=== PATIENT | male | born 1950 | race Caucasian/White ===

== ENCOUNTER → 2023-08-23 | Outpatient (CLI) | payer MEDICARE ==
--- NOTE | 2023-08-23 11:45 | US ---
EXAMINATION TYPE: US abdomen complete DATE OF EXAM: 08/23/2023 COMPARISON: NONE CLINICAL INDICATION: Male, 72 years old with history of R10.13 epigastric pain; TECHNIQUE: Multiple sonographic images of the abdomen are obtained. FINDINGS: EXAM MEASUREMENTS: Liver Length: 14.9 cm Gallbladder Wall: 0.2 cm CBD: 0.5 cm Spleen: 10.7 cm Right Kidney: 9.5 x 5.2 x 5.2 cm Left Kidney: 12.5 x 5.7 x 5.5 cm Pancreas: obscured by overlying midline bowel gas Liver: scanned intercostally, mildly heterogeneous Gallbladder: 1.0cm echogenic focus Evidence for sonographic Ruiz's sign: no CBD: visualized portions wnl, limited by overlying bowel gas Spleen: wnl Right Kidney: measures smaller in size when compared to left kidney Left Kidney: wnl Upper IVC: wnl Abd Aorta: visualized portions wnl, limited by overlying midline bowel gas IMPRESSION: 1. Gallstones without evidence of acute cholecystitis. 2. Limited evaluation of pancreas and liver. 3. Suggestion of mild fatty infiltration liver. 4. Mild right renal atrophy
== END | disposition home or self-care (01) ==
LOC: RADUSWWP 09:12
PROVIDERS: ATTEND Family Medicine
DX: K80.20 Calculus of gallbladder without cholecystitis without obstruction (principal); N26.1 Atrophy of kidney (terminal)
CPT/HCPCS: 76700

== ENCOUNTER → 2023-10-29 | Outpatient (CLI) | payer MEDICARE ==
[2023-10-29 12:37] LABS: African American GFR (CKD) 90 (>60 ml/min/1.73 sqM); Blood Urea Nitrogen 30 mg/dL (9-20); Non-African American GFR(CKD) 77 (>60 ml/min/1.73 sqM)
--- NOTE | 2023-10-29 13:56 | CT ---
EXAMINATION TYPE: CT abdomen pelvis w con DATE OF EXAM: 10/29/2023 COMPARISON: Ultrasound 08/22/2023 HISTORY: abd cramping CT DLP: 1497 mGycm Automated exposure control for dose reduction was used. CONTRAST: CT scan of the abdomen pelvis is performed with IV Contrast, patient injected with 100 mL of Isovue 3 00. FINDINGS- LUNG BASES- basilar atelectasis or scarring with findings suggestive of pulmonary fibrosis and COPD. Coronary artery calcification. There are multiple 1 to 2 mm bilateral pulmonary micronodules too sma ll to characterize. LIVER/GB- hepatic steatosis. Multiple gallstones. PANCREAS- No gross abnormality is seen. SPLEEN- No gross abnormality is seen. ADRENALS- No gross abnormality is seen. KIDNEYS/BLADDER- no hydronephrosis nephrolithiasis or renal mass. BOWEL-there is thickening of the gastric antrum wall. There is a pathologic lymph node seen posterior to this region measuring 2.7 cm in short axis. Changes of diverticulosis. No obstruction. Appendix n ormal. LYMPH NODES- 2.7 cm short axis pathologic lymph node in the upper abdomen posterior to the stomach. Malignancy in the differential diagnosis. OSSEOUS STRUCTURES- multilevel degenerative disc disease. OTHER- mild atherosclerotic change aorta. No evidence of aneurysm. Bladder limited by incomplete dis tention. Fat-containing bilateral inguinal hernia. Prostate is enlarged measuring 5 cm. IMPRESSION- 1. There is gastric antral wall thickening with pathologic adenopathy posterior to the stomach. Recom mend EGD to exclude a mass versus severe gastritis. Adenopathy suspicious for neoplastic process. PET scan recommended. 2. Cholelithiasis. 3. COPD and findings suggestive of pulmonary fibrosis. Multiple pulmonary tiny micronodules too small to characterize.
== END | disposition home or self-care (01) ==
LOC: RADCTMAIN 12:00
PROVIDERS: ATTEND Internal Medicine Gastroenterology
DX: R63.4 Abnormal weight loss
CPT/HCPCS: 36415; 74177; 82565; 84520

== ENCOUNTER 2023-11-12 09:11 | Inpatient (IN) | payer MEDICARE ==
[~2023-11-12 09:11] MED LIST: LIDOCAINE 1% (10MG/ML) FOR IV START INTRADERMA PRN
[2023-11-12] MEDS: IV FLUID CONTINUATION 1,000 ML IV ONE (09:30)
[2023-11-12] MEDS: LACTATED RINGERS 1,000 ML IV SCH (09:38)
[2023-11-12] MEDS ORDERED: LIDOCAINE 1% INJ 10MG/ML (20 ML MDV) ONE (10:31)
[2023-11-12] MEDS ORDERED: SUCCINYLCHOLINE CHLORIDE 200 MG/10 ML VIAL IV ONE (10:31)
[2023-11-12] MEDS ORDERED: PROPOFOL 10 MG/ML 20 ML VIAL IV ONE (10:31)
--- NOTE | 2023-11-12 10:48 | P.PCN ---
Date of Procedure: 11/12/23 Procedure(s) Performed: BRIEF HISTORY: Patient is a 73-year-old, pleasant, white male scheduled for an upper endoscopy as a part evaluation of chronic epigastric pain for the last 8 months duration. He was treated with Protonix 40 mg daily for 3 months with no help.. Loss 22 pounds in the last [address] of the abdomen pelvis done 3 weeks ago \ showed thickening of the antral wall with pathological adenopathy posterior the stomach suspicious for neoplasm. He is scheduled for an upper endoscopy to evaluate further. PROCEDURE PERFORMED: Esophagogastroduodenoscopy with biopsy. PREOPERATIVE DIAGNOSIS: Chronic epigastric pain of 8 months duration. IV sedation per anesthesia. PROCEDURE: After informed consent was obtained, the patient was brought into the endoscopy unit. IV sedation was administered by Anesthesia under continuous monitoring. Initially the Olympus GIF-140 video endoscope was inserted into the mouth. Esophagus intubated without any difficulty. It was gradually advanced into the stomach there was large amount of liquid and solid food noted in the stomach suggestive of gastric outlet obstruction. The scope could not be advanced through the pylorus. In the prepyloric area as well as in the antrum there was a large superficial ulceration identified and multiple biopsies were done from this area. The body cardia and fundus could not adequately visualize because of large amount of retained food in the stomach. The scope at this time was withdrawn to the stomach, adequately insufflated with air, and upon careful examination, mucosa of the antrum, body, cardia and the fundus appeared normal. As the procedure was being performed and biopsies were being done patient threw up and subsequently became hypoxic and because of suspicion for aspiration the procedure was terminated. Anesthesia team decided to intubate the patient. Hence the procedure was terminated. Anesthesia took over and patient was intubated and is presently being transferred to the intensive care unit IMPRESSION: 1. Large superficial gastric antral ulceration involving most of the antrum status post multiple biopsies. 2. The antral ulceration was extending into the pylorus causing pyloric stenosis and gastric outlet obstruction. 3. Mild amount of solid and liquid food in the stomach suggestive of gastric outlet obstruction. RECOMMENDATIONS: The findings of this examination were discussed with the patient family. Patient is being transferred to the intensive care unit for further management of care. In the meantime we will await biopsy results. Will place an NG tube for suction. Continue with Protonix 40 mg twice daily.
[2023-11-12 11:05] LABS: Glucose,Whole Blood 134 mg/dL (70-110)
[2023-11-12] MEDS ORDERED: NALOXONE 0.4 MG/ML 1 ML VIAL IV PRN (11:32)
--- NOTE | 2023-11-12 11:51 | XR ---
EXAMINATION TYPE: XR chest 1V portable DATE OF EXAM: 11/12/2023 HISTORY: Shortness of breath. COMPARISON: None. TECHNIQUE: Single view of the chest is submitted. FINDINGS: Demonstrated are scattered senescent parenchymal change. NG tube is noted with its tip within the di stal esophagus and should be advanced 17 cm. Endotracheal tube is noted 5.7 cm from the josseline. There is no evidence for focal infiltrate. The heart is stable. Hilar and mediastinal structures are within normal limits. Degenerative changes are seen of the dorsal spine. IMPRESSION: 1. Chronic changes without evidence for acute pulmonary disease.
[2023-11-12 13:16] LABS: Basophils % (A) 0 %; Eosinophils # (A) 0.2 k/uL (0-0.7); Eosinophils % (A) 2 %; HCT 28.6 % (39.0-53.0); HGB 8.9 gm/dL (13.0-17.5); Hypochromasia Marked; Lymphocytes # (A) 2.4 k/uL (1.0-4.8); Lymphocytes % (A) 24 %; MCH 27.1 pg (25.0-35.0); MCHC 31.1 g/dL (31.0-37.0); MCV 87.3 fL (80.0-100.0); Monocytes # (A) 0.3 k/uL (0-1.0); Monocytes % (A) 3 %; Neutrophils # (A) 7.3 k/uL (1.3-7.7); Neutrophils % (A) 71 %; Platelet Count 399 k/uL (150-450); Poikilocytosis Slight; RBC 3.27 m/uL (4.30-5.90); RDW 14.7 % (11.5-15.5); WBC 10.2 k/uL (3.8-10.6)
--- NOTE | 2023-11-12 13:42 | P.CNPUL ---
History of Present Illness Consult date: 11/12/23 Requesting physician: Netta Cheng Reason for consult: other (Acute hypoxic respiratory failure secondary to aspiration during EGD) Chief complaint: Chronic epigastric pain for the last 8 months and weight loss History of present illness: This is a 73-year-old white male with history of chronic abdominal pain for the last 8 months has been treated with Protonix 40 mg daily for the last 3 months with no improvement. Patient had a 22 pound weight loss in the last [address] of the abdomen and pelvis 3 weeks ago showed thickening of the antral wall with pathological adenopathy posterior to the stomach suspicious of neoplasm. Today the patient underwent elective upper endoscopy to evaluate further, patient received IV sedation by anesthesia endoscope was inserted into the mouth, esopha ortega was intubated without any difficulty there was evidence of large amount of liquid and solid food noted in the stomach suggestive of gastric outlet obstruction. Scope could not be advanced through the pylorus, however in the prepyloric area there was a large superficial ulceration identified with multiple biopsies were done from this area. The body cardia and fundus could not adequately visualize because of large amount of retained food in the stomach. Scope was withdrawn back to the stomach and upon careful examination the mucosa of the antrum body and cardia as well as the fundus appeared normal. Procedure was being performed and biopsies were done patient threw up and subsequently became hypoxic there was clearly evidence of witnessed aspiration anesthesia intubated the patient, procedure was terminated, and the patient was transferred to the ICU, this consult was initiated. Patient is now on assist- control rate of 20 tidal volume 500 FiO2 70% PEEP of 10 ABG is pending, earlier ABG showed profound hypoxia patient is on propofol at 50 mcg/kg/min, next ABG is pending. Chest x-ray showed chronic changes without evidence of acute pulmonary disease. Review of Systems ROS unobtainable: due to endotracheal tube Past Medical History Past Medical History: GERD/Reflux History of Any Multi-Drug Resistant Organisms: None Reported Past Surgical History: Heart Catheterization Additional Past Surgical History / Comment(s): colonsocopy,spinal injection, Past Anesthesia/Blood Transfusion Reactions: No Reported Reaction Smoking Status: Never smoker - Past Family History Father Family Medical History: Cancer Medications and Allergies Home Medications Medication Instructions Recorded Confirmed Type Fluticasone Nasal [place] [Flonase 2 spray EA NOSTRIL DAILY 11/11/23 11/12/23 History Nasal [place]] Pantoprazole Sodium 40 mg PO BID 11/11/23 11/12/23 History Allergies Allergy/AdvReac Type Severity Reaction Status Date / Time No Known Allergies Allergy Verified 11/12/23 09:32 Physical Exam Vitals: Vital Signs Temp Pulse Pulse Resp BP BP Pulse Ox 11/12/23 13:10 11/12/23 13:00 76 37 H 115/72 94 L 11/12/23 12:50 67 26 H 100 11/12/23 12:40 68 23 100 11/12/23 12:36 67 23 115/71 100 11/12/23 12:03 11/12/23 12:00 11/12/23 11:06 11/12/23 11:05 11/12/23 09:26 96.6 F L 73 16 135/71 95 FiO2 11/12/23 13:10 50 11/12/23 13:00 70 11/12/23 12:50 11/12/23 12:40 11/12/23 12:36 100 11/12/23 12:03 70 11/12/23 12:00 70 11/12/23 11:06 100 11/12/23 11:05 100 11/12/23 09:26 Intake and Output 11/11/23 11/12/23 11/12/23 22:59 06:59 14:59 Intake Total 952.668 Output Total 125 Balance 827.668 Intake: IV 940 Lactated Ringers 1,000 ml 40 @ 20 mls/hr IV .Q24H NIRMAL Rx#:[id number] Intake, IV Titration 12.668 Amount propofoL 1,000 mg In 12.668 Empty Bag 1 bag @ 15 MCG/ KG/MIN 8.262 mls/hr IV . Q12H7M NIRMAL Rx#:[id number] Output: Urine 125 Other: Weight 91.8 kg General: Revealed 73-year-old white male intubated sedated, not in any distress. Skin: Skin is warm and dry and no rashes or lesions are noted. Eye: Pupils are equal, round and reactive to light, extra-ocular movements are intact; there is normal conjunctiva bilaterally. Ears, nose, mouth and throat: There are moist mucous membranes and no oral lesions. Neck: The neck is supple, there is no tenderness or JVD. Endotracheal tube is noted to be intact, nasogastric tube is also intact. Cardiovascular: There is a regular rate and rhythm. No murmur, rub or gallop is appreciated. Respiratory: Normal fine crackles at the bases no rhonchi no wheezes Gastrointestinal: Soft, non-distended, non-tender abdomen without masses or organomegaly noted. There is no rebound or guarding present. Bowel sounds are unremarkable. Musculoskeletal: No evidence of deformities. Neurological: Could not assess patient is sedated, on propofol. Psychiatric: Could not fully assess, patient is sedated, on propofol Results - Laboratory Findings CBC and BMP: 11/12/23 12:56 Abnormal lab findings: Abnormal Labs 11/12/23 11/12/23 11:04 12:56 RBC 3.27 L Hgb 8.9 L Hct 28.6 L POC Glucose (mg/dL) 134 H - Diagnostic Findings Chest x-ray: image reviewed (As noted in HPI) Assessment and Plan Assessment: Impression: Acute hypoxic respiratory failure requiring intubation mechanical ventilation secondary to aspiration. Acute aspiration during upper endoscopy most likely secondary to gastric outlet obstruction as noted in operative report. Possible stomach malignancy, pathology is pending from biopsies done earlier today. Chronic abdominal pain Unexplained weight loss most likely secondary to underlying malignancy. Recommendation: Continue ventilatory support Continue sedation with propofol Continue IV fluids Continue nasogastric tube to suction Empiric antibiotics in the form of Zosyn for presumptive aspiration pneumonia GI and DVT prophylaxis Repeat ABG on 50% FiO2 and PEEP of 10 Will address follow-up chest x-ray ABG in a.m. and address possible weaning and extubation. Will continue to follow Time with Patient: Greater than 30
[2023-11-12 13:43] LABS: African American GFR (CKD) >90 (>60 ml/min/1.73 sqM); Anion Gap 6 mmol/L; Blood Urea Nitrogen 18 mg/dL (9-20); Calcium 8.9 mg/dL (8.4-10.2); Carbon Dioxide 26 mmol/L (22-30); Chloride 106 mmol/L (98-107); Glucose 127 mg/dL (74-99); Magnesium 1.9 mg/dL (1.6-2.3); Non-African American GFR(CKD) 87 (>60 ml/min/1.73 sqM); Phosphorus 4.1 mg/dL (2.5-4.5); Potassium 5.1 mmol/L (3.5-5.1); Sodium 138 mmol/L (137-145)
[2023-11-12 13:50] LABS: ABG Base Excess -1.6 mmol/L; ABG HCO3 24 mmol/L (21-25); ABG Oxygen Saturation 94.8 % (94-97); ABG PCO2 43 mmHg (35-45); ABG PH 7.36 (7.35-7.45); ABG PO2 75 mmHg (83-108); ABG TCO2 25 mmol/L (19-24)
[2023-11-12 13:52] LABS: Allen Test Performed? no
[2023-11-12] MEDS: HYDROmorphone 0.5 MG/0.5 ML SYRINGE IVP PRN (14:07)
[2023-11-12] MEDS: PIPERACILLIN-TAZOBACTAM 3.375 GM in SODIUM CHLORIDE 0.9% 100 ML IVPB SCH (15:28)
[2023-11-12] MEDS: IPRATROPIUM-ALBUTEROL 3 ML NEB INHALATION SCH (15:28)
--- NOTE | 2023-11-12 15:40 | P.CONS ---
History of Present Illness - Reason for Consult Consult date: 11/12/23 Gastroparesis Requesting physician: Dorita Saldivar - Chief Complaint Abdominal pain and weight loss - History of Present Illness 73-year-old male who is scheduled for outpatient upper endoscopy for complaints of chronic epigastric pain over the last 8 months duration and weight loss of 22 pounds over the last 4 months duration. Today he underwent upper endoscopy today and was found to have large amount of retained food in his stomach with evidence of large superficial gastric antral ulcer involving most of the antrum extending into the pylorus causing pyloric stenosis. Scope could not be advanced any further through the pylorus suggestive of gastric outlet obstr uction. Multiple biopsies were done from the gastric antral ulceration. During this process patient had aspirated and had a drop in his oxygen saturation and needed to be intubated per anesthesia. He was s admitted to the hospital and transferred to the to the ICU currently remains intubated with NG tube placed with about 200 cc of gastric output. Review of Systems ROS unobtainable: due to endotracheal tube Past Medical History Past Medical History: GERD/Reflux History of Any Multi-Drug Resistant Organisms: None Reported Past Surgical History: Heart Catheterization Additional Past Surgical History / Comment(s): colonsocopy,spinal injection, Past Anesthesia/Blood Transfusion Reactions: No Reported Reaction Past Psychological History: No Psychological Hx Reported Smoking Status: Never smoker Past Alcohol Use History: None Reported Past Drug Use History: None Reported - Past Family History Father Family Medical History: Cancer Medications and Allergies Home Medications Medication Instructions Recorded Confirmed Type Fluticasone Nasal [place] [Flonase 2 spray EA NOSTRIL DAILY 11/11/23 11/12/23 His tory Nasal [place]] Pantoprazole Sodium 40 mg PO BID 11/11/23 11/12/23 History Allergies Allergy/AdvReac Type Severity Reaction Status Date / Time No Known Allergies Allergy Verified 11/12/23 09:32 Physical Exam Vitals: Vital Signs Temp Pulse Pulse Resp BP BP Pulse Ox 11/12/23 14:30 84 20 100 11/12/23 14:15 79 20 78/47 100 11/12/23 14:00 81 20 86/60 99 11/12/23 13:45 85 22 98/58 96 11/12/23 13:30 86 34 H 119/57 93 L 11/12/23 13:15 80 37 H 129/109 90 L 11/12/23 13:10 11/12/23 13:00 76 37 H 115/72 94 L 11/12/23 12:50 67 26 H 100 11/12/23 12:40 68 23 100 11/12/23 12:36 67 23 115/71 100 11/12/23 12:03 11/12/23 12:00 11/12/23 11:06 11/12/23 11:05 11/12/23 09:26 96.6 F L 73 16 135/71 95 FiO2 11/12/23 14:30 11/12/23 14:15 11/12/23 14:00 11/12/23 13:45 11/12/23 13:30 11/12/23 13:15 11/12/23 13:10 50 11/12/23 13:00 70 11/12/23 12:50 11/12/23 12:40 11/12/23 12:36 100 11/12/23 12:03 70 11/12/23 12:00 70 11/12/23 11:06 100 11/12/23 11:05 11/12/23 09:26 Intake and Output 11/11/23 11/12/23 11/12/23 22:59 06:59 14:59 Intake Total 1025.649 Output Total 125 Balance 900.649 Intake: IV 940 Lactated Ringers 1,000 ml 40 @ 20 mls/hr IV .Q24H NIRMAL Rx#:[id number] Intake, IV Titration 85.649 Amount propofoL 1,000 mg In 85.649 Empty Bag 1 bag @ 15 MCG/ KG/MIN 8.262 mls/hr IV . Q12H7M NIRMAL Rx#:[id number] Output: Urine 125 Other: Voiding Method Indwelling Catheter Weight 91.8 kg General appearance: The patient is sedated and intubated. HET: Head is normocephalic and atraumatic. NG tube in place with suction to the wall. Neck: Supple without lymphadenopathy. Trachea midline. Heart: Regular. Lungs: Equal expansion, normal respiratory effort. Abdomen: Soft, nondistended. Skin: No rashes. No jaundice. Extremities: Normal skin color and turgor. No pedal edema. Neurological: Sedated and intubated. Results CBC & Chem 7: 11/12/23 12:56 11/12/23 12:56 Labs: Abnormal Lab Results - Last 24 Hours (Table) 11/12/23 11/12/23 11/12/23 Range/Units 11:04 12:56 12:56 RBC 3.27 L (4.30-5.90) m/uL Hgb 8.9 L (13.0-17.5) gm/dL Hct 28.6 L (39.0-53.0) % ABG pO2 (83-108) mmHg ABG Total CO2 (19-24) mmol/L Hemoglobin (13.0-17.5) gm/dL Glucose 127 H (74-99) mg/dL POC Glucose (mg/dL) 134 H (70-110) mg/dL 11/12/23 Range/Units 13:48 RBC (4.30-5.90) m/uL Hgb (13.0-17.5) gm/dL Hct (39.0-53.0) % ABG pO2 75 L (83-108) mmHg ABG Total CO2 25 H (19-24) mmol/L Hemoglobin 8.5 L (13.0-17.5) gm/dL Glucose (74-99) mg/dL POC Glucose (mg/dL) (70-110) mg/dL Assessment and Plan (1) Gastric outlet obstruction Narrative/Plan: 73-year-old scheduled for outpatient procedure found to have significant amount of retained solid and liquid food in the stomach and also noted of large antral ulcer. This is a patient that was being worked up for chronic epigastric pain and unintentional weight loss. During procedure patient he had aspirated subsequently needing intubation and was admitted to the ICU for further evaluation. NG tube is placed with 200 mL of gastric output including food and liquid. Will continue to follow and await biopsy report report Current Visit: Yes Status: Acute Code(s): K31.1 - ADULT HYPERTROPHIC PYLORIC STENOSIS SNOMED Code(s): 570823028 (2) Aspiration into airway Current Visit: Yes Status: Acute Code(s): T17.908A - UNSP FB IN RESP TRACT, PART UNSP CAUSING OTH INJURY, INIT SNOMED Code(s): 378603197 (3) Gastric ulcer Current Visit: Yes Status: Acute Code(s): K25.9 - GASTRIC ULCER, UNSP ACUTE OR CHRONIC, W/O HEMOR OR PERF SNOMED Code(s): 810380783 (4) Epigastric pain Current Visit: Yes Status: Acute Code(s): R10.13 - EPIGASTRIC PAIN SNOMED Code(s): 31173883 (5) Unintentional weight loss Current Visit: Yes Status: Acute Code(s): R63.4 - ABNORMAL WEIGHT LOSS SNOMED Code(s): 546357375 Plan: 1. Continue symptomatic and supportive care 2. Continue with NG tube to suction 3. N.p.o. 4. Await gastric ulcer biopsy results 5. Rest of medical per ICU management and medical team Thank you for this consultation, we will continue to follow. Dr. Sahara Cheng I agree with the dictator's note, documented as a scribe by Leslee Estes.
[2023-11-12] MEDS: NOREPINEPHRINE 4 MG in SODIUM CHLORIDE 0.9% 250 ML IV SCH (18:59)
[2023-11-12] MEDS: CHLORHEXIDINE GLUCONATE 15 ML CUP MUCOUS MEM SCH (20:10)
[2023-11-12] MEDS: PANTOPRAZOLE 40 MG/10 ML VIAL IVP SCH (20:10)
[2023-11-12 23:01] LABS: Glucose,Whole Blood 172 mg/dL (70-110)
[2023-11-13 05:18] LABS: ABG Base Excess -4.4 mmol/L; ABG HCO3 22 mmol/L (21-25); ABG Oxygen Saturation 99.7 % (94-97); ABG PCO2 47 mmHg (35-45); ABG PH 7.28 (7.35-7.45); ABG PO2 143 mmHg (83-108); ABG TCO2 24 mmol/L (19-24); Allen Test Performed? Yes
[2023-11-13 06:33] LABS: Basophils % (A) 0 %; Eosinophils % (A) 0 %; HCT 24.5 % (39.0-53.0); HGB 7.6 gm/dL (13.0-17.5); Hypochromasia Marked; Lymphocytes # (A) 1.2 k/uL (1.0-4.8); Lymphocytes % (A) 9 %; MCH 27.5 pg (25.0-35.0); MCHC 31.2 g/dL (31.0-37.0); Mean Platelet Volume 7.6; Monocytes # (A) 0.6 k/uL (0-1.0); Monocytes % (A) 4 %; Neutrophils # (A) 11.9 k/uL (1.3-7.7); Neutrophils % (A) 85 %; Platelet Count 333 k/uL (150-450); Poikilocytosis Slight; RBC 2.78 m/uL (4.30-5.90); RDW 14.9 % (11.5-15.5)
[2023-11-13 06:56] LABS: African American GFR (CKD) 50 (>60 ml/min/1.73 sqM); Anion Gap 10 mmol/L; Blood Urea Nitrogen 26 mg/dL (9-20); Calcium 8.2 mg/dL (8.4-10.2); Carbon Dioxide 23 mmol/L (22-30); Chloride 103 mmol/L (98-107); Glucose 159 mg/dL (74-99); Non-African American GFR(CKD) 44 (>60 ml/min/1.73 sqM); Potassium 4.8 mmol/L (3.5-5.1); Sodium 136 mmol/L (137-145)
--- NOTE | 2023-11-13 08:02 | XR ---
EXAMINATION TYPE: XR chest 1V portable DATE OF EXAM: 11/13/2023 HISTORY: Shortness of breath. COMPARISON: 11/12/2023 TECHNIQUE: Single view of the chest is submitted. FINDINGS: Endotracheal tube is unchanged in position as is NG tube. Perihilar increased density may reflect developing infiltrate. The heart is stable. Hilar and mediastinal structures are within normal limits. Degenerative changes are seen of the dorsal spine. IMPRESSION: 1. Perihilar increased density may reflect developing infiltrate.
[2023-11-13 12:00] LABS: Glucose,Whole Blood 137 mg/dL (70-110)
--- NOTE | 2023-11-13 12:10 | P.PN ---
Subjective Progress Note Date: 11/13/23 Principal diagnosis: Aspiration 73-year-old male who is scheduled for outpatient upper endoscopy for complaints of chronic epigastric pain over the last 8 months duration and weight loss of 22 pounds over the last 4 months duration. Today he underwent upper endoscopy today and was found to have large amount of retained food in his stomach with evidence of large superficial gastric antral ulcer involving most of the antrum extending into the pylorus causing pyloric stenosis. Scope could not be advanced any further through the pylorus suggestive of gastric outlet obstructi on. Multiple biopsies were done from the gastric antral ulceration. During this process patient had aspirated and had a drop in his oxygen saturation and needed to be intubated per anesthesia. He was s admitted to the hospital and transferred to the to the ICU currently remains intubated with NG tube placed with about 200 cc of gastric output. 11/13/2023 Patient remains in the ICU sedated and intubated on mechanical ventilation. Family at the bedside. Had approximately 6-700 output of the NG tube since yesterday until this morning. Currently no output at this time. Chest x-ray reports perihilar increased density may reflect developing infiltrate. Patient has been afebrile. Objective - Vital Signs Vital signs: Vital Signs Temp 98.0 F 11/13/23 05:00 Pulse 106 H 11/13/23 08:06 Resp 15 11/13/23 07:00 BP 118/54 11/13/23 07:00 Pulse Ox 98 11/13/23 07:00 FiO2 50 11/13/23 07:49 Intake & Output 11/12/23 11/13/23 11/13/23 18:59 06:59 18:59 Intake Total 1206.554 586.118 20 Output Total 185 1035 75 Balance 1021.554 -448.882 -55 Weight 91.8 kg 95.4 kg Intake: IV 1040 240 20 Lactated Ringers 1,000 ml 140 240 20 @ 20 mls/hr IV .Q24H [facility] Rx#:[id number] Intake, IV Titration 166.554 346.118 Amount Norepinephrine 4 mg In 39.232 Sodium Chloride 0.9% 250 ml @ 0.03 MCG/KG/MIN 10. 493 mls/hr IV .Q24H [facility] Rx#:[id number] Piperacillin-Tazobactam 3 100 .375 gm In Sodium Chloride 0.9% 100 ml @ 25 mls/hr IVPB Q8HR [facility] Rx# :[id number] propofoL 1,000 mg In 166.554 206.886 Empty Bag 1 bag @ 15 MCG/ KG/MIN 8.262 mls/hr IV . Q12H7M [facility] Rx#:[id number] Output: Gastric Drainage 600 Urine 185 435 75 Other: Voiding Method Indwelling Catheter Indwelling Catheter # Bowel Movements 0 - Exam General appearance: The patient is sedated, intubated. HET: Head is normocephalic and atraumatic. NG tube in place. Neck: Supple without lymphadenopathy. Abdomen: Soft, nondistended. Extremities: Normal skin color and turgor. No pedal edema Skin: No rashes, no jaundice Neurological: Sedated and intubated. - Labs CBC & Chem 7: 11/13/23 05:52 11/13/23 05:52 Labs: Abnormal Lab Results - Last 24 Hours (Table) 11/12/23 11/12/23 11/12/23 Range/Units 11:04 12:56 12:56 WBC (3.8-10.6) k/uL RBC 3.27 L (4.30-5.90) m/uL Hgb 8.9 L (13.0-17.5) gm/dL Hct 28.6 L (39.0-53.0) % Neutrophils # (1.3-7.7) k/uL ABG pH (7.35-7.45) ABG pCO2 (35-45) mmHg ABG pO2 (83-108) mmHg ABG Total CO2 (19-24) mmol/L ABG O2 Saturation (94-97) % Hemoglobin (13.0-17.5) gm/dL Sodium (137-145) mmol/L BUN (9-20) mg/dL Creatinine (0.66-1.25) mg/dL Glucose 127 H (74-99) mg/dL POC Glucose (mg/dL) 134 H (70-110) mg/dL Calcium (8.4-10.2) mg/dL 11/12/23 11/12/23 11/13/23 Range/Units 13:48 22:59 05:15 WBC (3.8-10.6) k/uL RBC (4.30-5.90) m/uL Hgb (13.0-17.5) gm/dL Hct (39.0-53.0) % Neutrophils # (1.3-7.7) k/uL ABG pH 7.28 L (7.35-7.45) ABG pCO2 47 H (35-45) mmHg ABG pO2 75 L 143 H (83-108) mmHg ABG Total CO2 25 H (19-24) mmol/L ABG O2 Saturation 99.7 H (94-97) % Hemoglobin 8.5 L 7.5 L (13.0-17.5) gm/dL Sodium (137-145) mmol/L BUN (9-20) mg/dL Creatinine (0.66-1.25) mg/dL Glucose (74-99) mg/dL POC Glucose (mg/dL) 172 H (70-110) mg/dL Calcium (8.4-10.2) mg/dL 11/13/23 11/13/23 Range/Units 05:52 05:52 WBC 14.0 H (3.8-10.6) k/uL RBC 2.78 L (4.30-5.90) m/uL Hgb 7.6 L (13.0-17.5) gm/dL Hct 24.5 L (39.0-53.0) % Neutrophils # 11.9 H (1.3-7.7) k/uL ABG pH (7.35-7.45) ABG pCO2 (35-45) mmHg ABG pO2 (83-108) mmHg ABG Total CO2 (19-24) mmol/L ABG O2 Saturation (94-97) % Hemoglobin (13.0-17.5) gm/dL Sodium 136 L (137-145) mmol/L BUN 26 H (9-20) mg/dL Creatinine 1.57 H (0.66-1.25) mg/dL Glucose 159 H (74-99) mg/dL POC Glucose (mg/dL) (70-110) mg/dL Calcium 8.2 L (8.4-10.2) mg/dL Assessment and Plan (1) Gastric outlet obstruction Narrative/Plan: 73-year-old scheduled for outpatient procedure found to have significant amount of retained solid and liquid food in the stomach and also noted of large antral ulcer. This is a patient that was being worked up for chronic epigastric pain and unintentional weight loss. During procedure patient he had aspirated subsequently needing intubation and was admitted to the ICU for further evaluation. NG tube is placed with 200 mL of gastric output including food and liquid. Will continue to follow and await biopsy report report Current Visit: Yes Status: Acute Code(s): K31.1 - ADULT HYPERTROPHIC PYLORIC STENOSIS SNOMED Code(s): 668536075 (2) Aspiration into airway Current Visit: Yes Status: Acute Code(s): T17.908A - UNSP FB IN RESP TRACT, PART UNSP CAUSING OTH INJURY, INIT SNOMED Code(s): 517907206 (3) Gastric ulcer Current Visit: Yes Status: Acute Code(s): K25.9 - GASTRIC ULCER, UNSP ACUTE OR CHRONIC, W/O HEMOR OR PERF SNOMED Code(s): 319216462 (4) Epigastric pain Current Visit: Yes Status: Acute Code(s): R10.13 - EPIGASTRIC PAIN SNOMED Code(s): 19389311 (5) Unintentional weight loss Current Visit: Yes Status: Acute Code(s): R63.4 - ABNORMAL WEIGHT LOSS SNOMED Code(s): 397294941 Plan: 1. Continue symptomatic and supportive care 2. May clamp NG tube and try clear liquid 3. Can trial clear liquid diet through NG tube, check residuals 4. Await gastric ulcer biopsy results 5. Protonix 40 mg daily for GI prophylaxis 6. Rest of medical per ICU management and medical team Thank you for this consultation, we will continue to follow. Dr. Sahara Cheng I agree with the dictator's note, documented as a scribe by Leslee Estes.
--- NOTE | 2023-11-13 13:51 | P.PN ---
Subjective Progress Note Date: 11/13/23 Principal diagnosis: Acute hypoxic respiratory failure requiring intubation mechanical ventilation secondary to aspiration. This is a 73-year-old white male with history of chronic abdominal pain for the last 8 months has been treated with Protonix 40 mg daily for the last 3 months with no improvement. Patient had a 22 pound weight loss in the last [address] of the abdomen and pelvis 3 weeks ago showed thickening of the antral wall with pathological adenopathy posterior to the stomach suspicious of neoplasm. Today the patient underwent elective upper endoscopy to evaluate further, patient received IV sedation by anesthesia endoscope was inserted into the mouth, esop hagus was intubated without any difficulty there was evidence of large amount of liquid and solid food noted in the stomach suggestive of gastric outlet obstruction. Scope could not be advanced through the pylorus, however in the prepyloric area there was a large superficial ulceration identified with multiple biopsies were done from this area. The body cardia and fundus could not adequately visualize because of large amount of retained food in the stomach. Scope was withdrawn back to the stomach and upon careful examination the mucosa of the antrum body and cardia as well as the fundus appeared normal. Procedure was being performed and biopsies were done patient threw up and subsequently became hypoxic there was clearly evidence of witnessed aspiration anesthesia intubated the patient, procedure was terminated, and the patient was transferred to the ICU, this consult was initiated. Patient is now on assist- control rate of 20 tidal volume 500 FiO2 70% PEEP of 10 ABG is pending, earlier ABG showed profound hypoxia patient is on propofol at 50 mcg/kg/min, next ABG is pending. Chest x-ray showed chronic changes without evidence of acute pulmonary disease. Patient was seen and examined today on 11/13/2023, remains in the ICU, intubated mechanically ventilated, on assist-control rate of 20 tidal volume 500 FiO2 50% and PEEP of 10 ABG showed a pO2 of 143 pCO2 47 pH of 7.28 hence PEEP was cut down to 6, and increased rate to 22. Patient is still requiring IV fluid at 100 cc/h/LR. Requiring norepinephrine at 0.08 mcg/kg/min he is also on propofol at 50 mg/kg/min antibiotics arce patient is receiving Zosyn. Chest x-ray is showing worsening infiltrates specially in the left lung. This could be related to aspiration pneumonia. Patient had witnessed aspiration during end oscopy/upper endoscopy.WBC count is 14 hemoglobin 7.6 basic metabolic profile is normal BUN is 26 creatinine 1.57 obviously the patient sustained some acute kidney injury baseline creatinine 0.86 patient had received fluids over the last 24 hours, remains on fluids at 100 cc/h Objective - Vital Signs Vital signs: Vital Signs Temp 98.0 F 11/13/23 08:00 Pulse 108 H 11/13/23 12:00 Resp 18 11/13/23 12:00 BP 119/65 11/13/23 12:00 Pulse Ox 100 11/13/23 12:00 FiO2 50 11/13/23 12:00 Intake & Output 11/12/23 11/13/23 11/13/23 18:59 06:59 18:59 Intake Total 1206.554 586.118 876.650 Output Total 185 1035 835 Balance 1021.554 -448.882 41.650 Weight 91.8 kg 95.4 kg Intake: IV 1040 240 360 Lactated Ringers 1,000 ml 140 240 360 @ 100 mls/hr IV .Q10H [facility] Rx#:[id number] Intake, IV Titration 166.554 346.118 516.650 Amount Norepinephrine 4 mg In 39.232 243.332 Sodium Chloride 0.9% 250 ml @ 0.03 MCG/KG/MIN 10. 493 mls/hr IV .Q24H [facility] Rx#:[id number] Piperacillin-Tazobactam 3 100 100 .375 gm In Sodium Chloride 0.9% 100 ml @ 25 mls/hr IVPB Q8HR [facility] Rx# :[id number] propofoL 1,000 mg In 166.554 206.886 173.318 Empty Bag 1 bag @ 15 MCG/ KG/MIN 8.262 mls/hr IV . Q12H7M [facility] Rx#:[id number] Output: Gastric Drainage 600 Urine 185 435 835 Other: Voiding Method Indwelling Catheter Indwelling Catheter Indwelling Catheter # Bowel Movements 0 - Exam General: Revealed 73-year-old white male intubated sedated, calm Skin: Skin is warm and dry and no rashes or lesions are noted. Eye: Pupils are equal, round and reactive to light, extra-ocular movements are intact; there is normal conjunctiva bilaterally. Ears, nose, mouth and throat: There are moist mucous membranes and no oral lesi ons. Neck: The neck is supple, there is no tenderness or JVD. Endotracheal tube is noted to be intact, nasogastric tube is also intact. Cardiovascular: There is a regular rate and rhythm. No murmur, rub or gallop is appreciated. Respiratory: Minimal crackles at the bases Gastrointestinal: Soft, non-distended, non-tender abdomen without masses or organomegaly noted. There is no rebound or guarding present. Bowel sounds are unremarkable. Musculoskeletal: No evidence of deformities. Neurological: Could not assess patient is sedated, on propofol. Psychiatric: Could not fully assess, patient is sedated, on propofol - Labs CBC & Chem 7: 11/13/23 05:52 11/13/23 05:52 Labs: Abnormal Lab Results - Last 24 Hours (Table) 11/12/23 11/12/23 11/13/23 Range/Units 13:48 22:59 05:15 WBC (3.8-10.6) k/uL RBC (4.30-5.90) m/uL Hgb (13.0-17.5) gm/dL Hct (39.0-53.0) % Neutrophils # (1.3-7.7) k/uL ABG pH 7.28 L (7.35-7.45) ABG pCO2 47 H (35-45) mmHg ABG pO2 75 L 143 H (83-108) mmHg ABG Total CO2 25 H (19-24) mmol/L ABG O2 Saturation 99.7 H (94-97) % Hemoglobin 8.5 L 7.5 L (13.0-17.5) gm/dL Sodium (137-145) mmol/L BUN (9-20) mg/dL Creatinine (0.66-1.25) mg/dL Glucose (74-99) mg/dL POC Glucose (mg/dL) 172 H (70-110) mg/dL Calcium (8.4-10.2) mg/dL 11/13/23 11/13/23 11/13/23 Range/Units 05:52 05:52 11:58 WBC 14.0 H (3.8-10.6) k/uL RBC 2.78 L (4.30-5.90) m/uL Hgb 7.6 L (13.0-17.5) gm/dL Hct 24.5 L (39.0-53.0) % Neutrophils # 11.9 H (1.3-7.7) k/uL ABG pH (7.35-7.45) ABG pCO2 (35-45) mmHg ABG pO2 (83-108) mmHg ABG Total CO2 (19-24) mmol/L ABG O2 Saturation (94-97) % Hemoglobin (13.0-17.5) gm/dL Sodium 136 L (137-145) mmol/L BUN 26 H (9-20) mg/dL Creatinine 1.57 H (0.66-1.25) mg/dL Glucose 159 H (74-99) mg/dL POC Glucose (mg/dL) 137 H (70-110) mg/dL Calcium 8.2 L (8.4-10.2) mg/dL Assessment and Plan Assessment: Impression: Acute hypoxic respiratory failure requiring intubation mechanical ventilation secondary to aspiration. Acute aspiration pneumonia Acute aspiration during upper endoscopy most likely secondary to gastric outlet obstruction as noted in operative report. Possible stomach malignancy, pathology is pending from biopsies done earlier today. Chronic abdominal pain Unexplained weight loss most likely secondary to underlying malignancy. Recommendation: Updated family on his condition at bedside Patient will be given a trial off sedation and assessment of mental status, and can even consider 8 trial of weaning if tolerated. Continue ventilatory support Sedation interruption today and decide on weaning trials if possible or weaning parameters Continue IV fluids Continue nasogastric tube to suction Continue antibiotics in the form of Zosyn for aspiration pneumonia GI and DVT prophylaxis ABG was noted and ventilator settings were appropriately addressed. Patient remains critically ill Critical care time is over 30 minutes. Again family was updated on his status at this point. Will continue to follow Time with Patient: Greater than 30
[2023-11-13 17:32] LABS: Glucose,Whole Blood 128 mg/dL (70-110)
--- NOTE | 2023-11-13 21:04 | P.HPIM ---
History of Present Illness H&P Date: 11/13/23 Chief Complaint: Aspirated This is a 73-year-old patient, follows with Dr. Patricia Deal. Patient was seen this morning in the ICU. Patient's and daughter at the bedside. History obtained predominantly by the . Patient been having trouble with his stomach symptoms for close to 8 months. Patient underwent EGD by Dr. Sahara Cheng yesterday. Patient was found to have ulcerated around the antrum and obstruction to the pylorus. A lot of retained food was found. Patient aspirated. Had to be intubated and brought to the ICU. On a Levophed drip. FiO2 50 and a PEEP of 6. Patient had been losing weight lost about 25 pounds. Previously has a history of mitral valve prolapse. Review of systems patient intubated Past medical history to include: GERD Social history: . No smoking. Physical examination: VITAL SIGNS: 98, 103, 20, 122 x 61, 99% on the ventilator GENERAL: Average built, sitting up, comfortable. EYES: Pupils equal. Conjunctiva edouard l. HEENT: External appearance of nose and ears normal, oral cavity grossly normal. Endotracheal tube. NECK: JVD unable to assess; masses not palpable. HEART: First and second heart sounds are normal; no edema. LUNGS: Respiratory rate normal; decreased breath sounds. ABDOMEN: Soft, nontender, liver spleen not palpable, no masses palpable. PSYCH: [Patient intubated l. MUSCULOSKELETAL:No Clubbing/cyanosis;muscles-grossly intact NEUROLOGICAL: Cranial nerves grossly intact; no facial asymmetry, power and sensation grossly intact. LYMPHATICS: No lymph nodes palpable in the axilla and neck INVESTIGATIONS, reviewed in the clinical context: November 12: White count 14 hemoglobin 7.6 platelets 333 sodium 136 BUN 26 creatinine 1.57 November 11: Creatinine 0.86 EGD: Large amount of retained solid liquid food noted in the stomach. Large superficial gastric antral ulceration involving most of the antrum extending into the pylorus causing pyloric stenosis. Biopsies were obtained. Chest x-ray film personally reviewed by me-scattered infiltrates Assessment plan: -Aspiration pneumonitis bilateral from retained gastric contents mostly food and liquids IV Zosyn -Acute kidney injury. Possible ATN from hypotensive shock Strict I's and O's. Follow renal function. Consult nephrology. IV fluids. I's and O's. -Acute hypoxic respiratory failure from aspiration pneumonia, currently ventilator assisted FiO2 50 and a PEEP of 6. -Normocytic anemia likely of chronic disease Check iron studies B12 folate -GERD PPI -Large superficial gastric antral ulceration involving the gastric antrum extending into the pylorus with gastric outlet obstruction. Concern for underlying malignancy. Biopsies are done. -Full code Patient being followed by GI, education sales consultant. Care was discussed patient's and daughter at the bedside. Past Medical History Past Medical History: GERD/Reflux History of Any Multi-Drug Resistant Organisms: None Reported Past Surgical History: Heart Catheterization Additional Past Surgical History / Comment(s): colonsocopy,spinal injection, Past Anesthesia/Blood Transfusion Reactions: No Reported Reaction Past Psychological History: No Psychological Hx Reported Smoking Status: Never smoker Past Alcohol Use History: None Reported Past Drug Use History: None Reported - Past Family History Father Family Medical History: Cancer Medications and Allergies Home Medications Medication Instructions Recorded Confirmed Type Fluticasone Nasal [place] [Flonase 2 spray EA NOSTRIL DAILY 11/11/23 11/12/23 History Nasal [place]] Pantoprazole Sodium 40 mg PO BID 11/11/23 11/12/23 History Allergies Allergy/AdvReac Type Severity Reaction Status Date / Time No Known Allergies Allergy Verified 11/12/23 09:32 Physical Exam Vitals: Vital Signs Temp Pulse Resp BP Pulse Ox FiO2 11/13/23 11:31 50 11/13/23 11:00 101 H 20 108/63 99 11/13/23 10:30 103 H 20 122/61 99 11/13/23 10:00 108 H 18 120/62 100 11/13/23 09:33 50 11/13/23 09:30 112 H 19 123/62 100 11/13/23 09:00 113 H 21 128/61 100 11/13/23 08:30 115 H 17 126/62 100 11/13/23 08:06 106 H 11/13/23 08:00 98.0 F 106 H 20 121/57 98 50 11/13/23 07:56 104 H 11/13/23 07:49 50 11/13/23 07:30 105 H 15 122/57 98 11/13/23 07:00 104 H 15 118/54 98 11/13/23 06:30 107 H 16 106/56 98 11/13/23 06:00 112 H 16 107/57 98 11/13/23 05:30 120 H 16 114/56 98 11/13/23 05:00 98.0 F 115 H 18 93/53 99 11/13/23 04:30 116 H 15 137/61 100 11/13/23 04:15 111 H 11/13/23 04:13 50 11/13/23 04:00 108 H 20 129/67 100 50 11/13/23 03:30 108 H 17 108/57 100 11/13/23 03:00 108 H 17 106/54 99 11/13/23 02:30 109 H 15 101/51 100 11/13/23 02:00 110 H 16 111/55 100 50 11/13/23 01:30 109 H 16 110/59 100 11/13/23 01:25 108 H 11/13/23 01:10 112 H 11/13/23 01:08 50 11/13/23 01:00 103 H 14 104/52 98 11/13/23 00:30 103 H 15 104/53 98 11/13/23 00:00 98.4 F 103 H 15 104/53 98 50 11/12/23 23:30 104 H 16 102/53 98 11/12/23 23:00 101 H 16 104/56 98 11/12/23 22:30 101 H 15 108/56 98 11/12/23 22:06 106 H 14 110/55 98 11/12/23 22:00 105 H 16 107/54 98 11/12/23 21:30 110 H 14 94/50 97 11/12/23 21:09 89 11/12/23 21:00 113 H 15 99/57 98 11/12/23 20:30 113 H 15 83/52 98 11/12/23 20:00 98.0 F 90 19 99/59 98 50 11/12/23 19:59 50 11/12/23 19:30 84 20 105/63 98 11/12/23 19:00 81 20 88/53 99 11/12/23 18:30 79 20 83/51 99 11/12/23 18:00 82 20 86/54 99 11/12/23 17:30 87 20 82/50 100 11/12/23 17:00 91 25 H 99/63 100 11/12/23 16:30 88 21 104/57 100 11/12/23 16:00 97.5 F L 100 20 93/57 100 11/12/23 15:46 50 11/12/23 15:45 96 21 83/51 100 11/12/23 15:44 82 11/12/23 15:42 70 11/12/23 15:32 50 11/12/23 15:30 82 22 80/43 100 11/12/23 15:15 80 22 76/45 100 11/12/23 15:00 81 22 79/46 100 11/12/23 14:45 80 21 76/46 100 11/12/23 14:30 84 20 100 11/12/23 14:15 79 20 78/47 100 11/12/23 14:00 81 20 86/60 99 11/12/23 13:45 85 22 98/58 96 11/12/23 13:30 86 34 H 119/57 93 L 11/12/23 13:15 80 37 H 129/109 90 L 11/12/23 13:10 50 11/12/23 13:00 76 37 H 115/72 94 L 70 11/12/23 12:50 67 26 H 100 11/12/23 12:40 68 23 100 11/12/23 12:36 67 23 115/71 100 100 11/12/23 12:03 70 11/12/23 12:00 70 Intake and Output 11/12/23 11/13/23 11/13/23 22:59 06:59 14:59 Intake Total 313.583 433.44 599.616 Output Total 150 945 510 Balance 163.583 -511.56 89.616 Intake: IV 160 160 160 Lactated Ringers 1,000 ml 160 160 160 @ 100 mls/hr IV .Q10H [facility] Rx#:[id number] Intake, IV Titration 153.583 273.44 439.616 Amount Norepinephrine 4 mg In 39.232 214.768 Sodium Chloride 0.9% 250 ml @ 0.03 MCG/KG/MIN 10. 493 mls/hr IV .Q24H [facility] Rx#:[id number] Piperacillin-Tazobactam 3 100 100 .375 gm In Sodium Chloride 0.9% 100 ml @ 25 mls/hr IVPB Q8HR [facility] Rx# :[id number] propofoL 1,000 mg In 114.351 173.44 124.848 Empty Bag 1 bag @ 15 MCG/ KG/MIN 8.262 mls/hr IV . Q12H7M [facility] Rx#:[id number] Output: Gastric Drainage 600 Urine 150 345 510 Other: Voiding Method Indwelling Catheter Indwelling Catheter # Bowel Movements 0 Weight 95.4 kg Results CBC & Chem 7: 11/13/23 05:52 11/13/23 05:52 Labs: Abnormal Lab Results - Last 24 Hours (Table) 11/12/23 11/12/23 11/12/23 Range/Units 12:56 12:56 13:48 WBC (3.8-10.6) k/uL RBC 3.27 L (4.30-5.90) m/uL Hgb 8.9 L (13.0-17.5) gm/dL Hct 28.6 L (39.0-53.0) % Neutrophils # (1.3-7.7) k/uL ABG pH (7.35-7.45) ABG pCO2 (35-45) mmHg ABG pO2 75 L (83-108) mmHg ABG Total CO2 25 H (19-24) mmol/L ABG O2 Saturation (94-97) % Hemoglobin 8.5 L (13.0-17.5) gm/dL Sodium (137-145) mmol/L BUN (9-20) mg/dL Creatinine (0.66-1.25) mg/dL Glucose 127 H (74-99) mg/dL POC Glucose (mg/dL) (70-110) mg/dL Calcium (8.4-10.2) mg/dL 11/12/23 11/13/23 11/13/23 Range/Units 22:59 05:15 05:52 WBC 14.0 H (3.8-10.6) k/uL RBC 2.78 L (4.30-5.90) m/uL Hgb 7.6 L (13.0-17.5) gm/dL Hct 24.5 L (39.0-53.0) % Neutrophils # 11.9 H (1.3-7.7) k/uL ABG pH 7.28 L (7.35-7.45) ABG pCO2 47 H (35-45) mmHg ABG pO2 143 H (83-108) mmHg ABG Total CO2 (19-24) mmol/L ABG O2 Saturation 99.7 H (94-97) % Hemoglobin 7.5 L (13.0-17.5) gm/dL Sodium (137-145) mmol/L BUN (9-20) mg/dL Creatinine (0.66-1.25) mg/dL Glucose (74-99) mg/dL POC Glucose (mg/dL) 172 H (70-110) mg/dL Calcium (8.4-10.2) mg/dL 11/13/23 Range/Units 05:52 WBC (3.8-10.6) k/uL RBC (4.30-5.90) m/uL Hgb (13.0-17.5) gm/dL Hct (39.0-53.0) % Neutrophils # (1.3-7.7) k/uL ABG pH (7.35-7.45) ABG pCO2 (35-45) mmHg ABG pO2 (83-108) mmHg ABG Total CO2 (19-24) mmol/L ABG O2 Saturation (94-97) % Hemoglobin (13.0-17.5) gm/dL Sodium 136 L (137-145) mmol/L BUN 26 H (9-20) mg/dL Creatinine 1.57 H (0.66-1.25) mg/dL Glucose 159 H (74-99) mg/dL POC Glucose (mg/dL) (70-110) mg/dL Calcium 8.2 L (8.4-10.2) mg/dL Thrombosis Risk Factor Assmnt - Choose All That Apply Any of the Below Risk Factors Present?: Yes Each Factor Represents 1 point: Medical pt on bed rest, Obesity (BMI >25) Other Risk Factors: Yes Each Risk Factor Represents 2 Points: Age 61-74 years Other congenital or acquired thrombophilia - If yes, enter type in comment: No Thrombosis Risk Factor Assessment Total Risk Factor Score: 4 Thrombosis Risk Factor Assessment Level: Moderate Risk
[2023-11-13 23:36] LABS: Glucose,Whole Blood 130 mg/dL (70-110)
[2023-11-14 04:32] LABS: Basophils % (A) 0 %; Eosinophils # (A) 0.3 k/uL (0-0.7); Eosinophils % (A) 2 %; HCT 22.2 % (39.0-53.0); Hypochromasia Marked; Lymphocytes # (A) 0.7 k/uL (1.0-4.8); Lymphocytes % (A) 6 %; MCH 27.2 pg (25.0-35.0); MCHC 31.1 g/dL (31.0-37.0); MCV 87.3 fL (80.0-100.0); Mean Platelet Volume 7.6; Monocytes # (A) 0.5 k/uL (0-1.0); Monocytes % (A) 4 %; Neutrophils # (A) 10.5 k/uL (1.3-7.7); Neutrophils % (A) 87 %; Platelet Count 276 k/uL (150-450); RBC 2.54 m/uL (4.30-5.90); RDW 14.9 % (11.5-15.5)
[2023-11-14 04:36] LABS: HGB 6.9 gm/dL (13.0-17.5)
[2023-11-14 04:53] LABS: Sodium 133 mmol/L (137-145)
[2023-11-14 04:54] LABS: ALT 10 U/L (4-49); AST 15 U/L (17-59); African American GFR (CKD) 69 (>60 ml/min/1.73 sqM); Albumin 2.6 g/dL (3.5-5.0); Alkaline Phosphatase 58 U/L (38-126); Anion Gap 6 mmol/L; Blood Urea Nitrogen 25 mg/dL (9-20); Calcium 8.2 mg/dL (8.4-10.2); Carbon Dioxide 25 mmol/L (22-30); Chloride 102 mmol/L (98-107); Glucose 133 mg/dL (74-99); Magnesium 1.8 mg/dL (1.6-2.3); Non-African American GFR(CKD) 60 (>60 ml/min/1.73 sqM); Total Bilirubin 0.4 mg/dL (0.2-1.3); Total Protein 5.1 g/dL (6.3-8.2)
[2023-11-14 05:47] LABS: ABG Base Excess 0.3 mmol/L; ABG HCO3 26 mmol/L (21-25); ABG Oxygen Saturation 99.4 % (94-97); ABG PCO2 51 mmHg (35-45); ABG PH 7.32 (7.35-7.45); ABG PO2 123 mmHg (83-108); ABG TCO2 28 mmol/L (19-24); Allen Test Performed? Yes
[2023-11-14 06:00] LABS: Potassium 4.4 mmol/L (3.5-5.1)
[2023-11-14 06:11] LABS: Glucose,Whole Blood 157 mg/dL (70-110)
[2023-11-14] MEDS ORDERED: Magnesium Replacement Protocol 1 EACH MISC MISCELLANE PRN (06:16)
[2023-11-14] MEDS: MAGNESIUM SULFATE-D5W PMX 1 GM in DEXTROSE/WATER 1 100ML.BAG IVPB ONE (06:40)
[2023-11-14] MEDS: HYDROmorphone 0.5 MG/0.5 ML SYRINGE IVP STA (06:49)
--- NOTE | 2023-11-14 07:21 | P.CRDCN ---
History of Present Illness Consult date: 11/14/23 History of present illness: The patient is a pleasant 73-year-old gentleman who requested to stay in the ICU for further evaluation of atrial fibrillation with RVR. The patient is currently intubated and the history was taken from the chart. The patient presented to the hospital as an outpatient to undergo an EGD because he was experiencing epigastric discomfort. There was difficulties in getting the EGD done and the patient developed aspiration. Subsequently he went into respiratory distress and he was intubated and admitted to the intensive care unit. We requested to see the patient for further evaluation of atrial fibrillation with RVR. Apparently no history of atrial fibrillation in the chart. The patient does not have any history of CAD or heart failure or any cardiac arrhythmia. Currently is intubated on mechanical ventilation and currently is on small dose of norepinephrine. Hemoglobin this morning came in to be at 6.9. At least the endoscopy revealed gastric ulcer. The hemoglobin is below 7. He is in process of receiving a blood transfusion. The EKG showed atrial fibrillation but subsequently the patient converted to normal sinus m echanism. The physical examination is remarkable for intubated patient on mechanical ventilation with unstable hemodynamically requiring vasopressors with regular rate and rhythm and distant heart sounds and diminished breathing sounds bilaterally and no edema was noted in the lower extremities Assessment Anemia likely to be blood loss anemia Acute hypoxic respiratory failure Gastric ulcer Atrial fibrillation of acute illness Multiple comorbid conditions Plan Start the patient on amiodarone Avoid any anticoagulation with the hemoglobin being low and possible gastrointestinal bleeding Consider starting the patient on oral AV theresa emanuel agents Obtain an echocardiogram with Doppler Obtain serial cardiac enzymes Follow-up with the patient Past Medical History Past Medical History: GERD/Reflux History of Any Multi-Drug Resistant Organisms: None Reported Past Surgical History: Heart Catheterization Additional Past Surgical History / Comment(s): colonsocopy,spinal injection, Past Anesthesia/Blood Transfusion Reactions: No Reported Reaction Past Psychological History: No Psychological Hx Reported Smoking Status: Never smoker Past Alcohol Use History: None Reported Past Drug Use History: None Reported - Past Family History Father Family Medical History: Cancer Medications and Allergies Home Medications Medication Instructions Recorded Confirmed Type Fluticasone Nasal [place] [Flonase 2 spray EA NOSTRIL DAILY 11/11/23 11/12/23 History Nasal [place]] Pantoprazole Sodium 40 mg PO BID 11/11/23 11/12/23 History Allergies Allergy/AdvReac Type Severity Reaction Status Date / Time No Known Allergies Allergy Verified 11/12/23 09:32 Physical Exam Vitals: Vital Signs Temp Pulse Resp BP Pulse Ox FiO2 11/14/23 07:00 102 H 22 118/59 98 11/14/23 06:30 103 H 20 113/56 98 11/14/23 06:00 105 H 22 118/57 98 11/14/23 05:30 105 H 22 121/59 97 11/14/23 05:00 107 H 22 123/59 97 11/14/23 04:45 104 H 11/14/23 04:31 105 H 11/14/23 04:30 106 H 22 126/62 98 11/14/23 04:29 50 11/14/23 04:00 98.3 F 108 H 22 127/64 98 50 11/14/23 03:30 112 H 19 123/58 97 11/14/23 03:00 179 H 22 119/57 97 11/14/23 02:30 118 H 19 110/61 99 11/14/23 02:00 124 H 25 H 137/67 99 11/14/23 01:30 125 H 21 129/60 99 11/14/23 01:00 98 35 H 123/58 96 11/14/23 00:50 102 H 11/14/23 00:43 96 22 122/60 99 11/14/23 00:35 100 11/14/23 00:34 50 11/14/23 00:30 94 20 125/57 99 11/14/23 00:00 98.4 F 94 19 123/57 99 50 11/13/23 23:30 94 20 126/56 99 11/13/23 23:00 94 22 120/56 99 11/13/23 22:30 96 20 118/55 99 11/13/23 22:00 95 22 118/54 99 11/13/23 21:30 94 20 118/54 100 11/13/23 21:00 96 19 108/54 99 11/13/23 20:30 97 22 116/52 99 11/13/23 20:05 103 H 11/13/23 20:00 98.5 F 99 22 122/62 100 50 11/13/23 19:55 50 11/13/23 19:50 100 11/13/23 19:47 50 11/13/23 19:30 98 19 114/57 99 11/13/23 19:00 96 18 112/56 99 11/13/23 18:30 95 19 118/57 98 11/13/23 18:00 97 22 104/55 99 11/13/23 17:30 99 22 104/50 99 11/13/23 17:00 105 H 20 108/54 98 11/13/23 16:30 112 H 26 H 131/63 100 11/13/23 16:00 98.3 F 113 H 25 H 99/59 100 50 11/13/23 15:30 109 H 22 107/52 100 11/13/23 15:25 102 H 11/13/23 15:17 106 H 11/13/23 15:15 50 11/13/23 15:00 105 H 22 112/58 100 11/13/23 14:30 107 H 21 119/56 100 11/13/23 14:00 108 H 23 120/56 100 11/13/23 13:30 110 H 34 H 135/65 100 11/13/23 13:00 105 H 20 98/52 100 11/13/23 12:30 109 H 19 112/55 100 11/13/23 12:00 108 H 18 119/65 100 50 11/13/23 11:47 104 H 11/13/23 11:37 100 11/13/23 11:31 50 11/13/23 11:30 100 19 121/62 99 11/13/23 11:00 101 H 20 108/63 99 11/13/23 10:30 103 H 20 122/61 99 11/13/23 10:00 108 H 18 120/62 100 11/13/23 09:33 50 11/13/23 09:30 112 H 19 123/62 100 11/13/23 09:00 113 H 21 128/61 100 11/13/23 08:30 115 H 17 126/62 100 11/13/23 08:06 106 H 11/13/23 08:00 98.0 F 106 H 20 121/57 98 50 11/13/23 07:56 104 H 11/13/23 07:49 50 11/13/23 07:30 105 H 15 122/57 98 Intake and Output 11/13/23 11/14/23 11/14/23 22:59 06:59 14:59 Intake Total 1038.627 7051.403 100 Output Total 965 800 75 Balance 119.381 351.403 25 Intake: IV 800 800 100 Lactated Ringers 1,000 ml 800 800 100 @ 100 mls/hr IV .Q10H NIRMAL Rx#:[id number] Intake, IV Titration 284.381 351.403 Amount Norepinephrine 4 mg In 162.816 Sodium Chloride 0.9% 250 ml @ 0.03 MCG/KG/MIN 10. 493 mls/hr IV .Q24H NIRMAL Rx#:[id number] Piperacillin-Tazobactam 3 100 .375 gm In Sodium Chloride 0.9% 100 ml @ 25 mls/hr IVPB Q8HR NIRMAL Rx# :[id number] propofoL 1,000 mg In 184.381 188.587 Empty Bag 1 bag @ 15 MCG/ KG/MIN 8.262 mls/hr IV . Q12H7M NIRMAL Rx#:[id number] Output: Gastric Drainage 150 Urine 815 800 75 Other: Voiding Method Indwelling Catheter Indwelling Catheter Weight 97.9 kg Results 11/14/23 04:04 11/14/23 04:04 Cardiac Enzymes 11/14/23 Range/Units 04:04 AST 15 L (17-59) U/L CBC 11/14/23 Range/Units 04:04 WBC 12.0 H (3.8-10.6) k/uL RBC 2.54 L (4.30-5.90) m/uL Hgb 6.9 L* (13.0-17.5) gm/dL Hct 22.2 L (39.0-53.0) % Plt Count 276 (150-450) k/uL Comprehensive Metabolic Panel 11/14/23 Range/Units 04:04 Sodium 133 L (137-145) mmol/L Potassium 4.4 (3.5-5.1) mmol/L Chloride 102 (98-107) mmol/L Carbon Dioxide 25 (22-30) mmol/L BUN 25 H (9-20) mg/dL Creatinine 1.21 (0.66-1.25) mg/dL Glucose 133 H (74-99) mg/dL Calcium 8.2 L (8.4-10.2) mg/dL AST 15 L (17-59) U/L ALT 10 (4-49) U/L Alkaline Phosphatase 58 (38-126) U/L Total Protein 5.1 L (6.3-8.2) g/dL Albumin 2.6 L (3.5-5.0) g/dL Current Medications Generic Name Dose Route Start Last Admin Trade Name Freq PRN Reason Stop Dose Admin Albuterol/Ipratropium 3 ml 11/12/23 16:00 11/14/23 04:31 Ipratropium-Albuterol 3 Ml Neb INHALATION 3 ml RT-Q4H NIRMAL Administration Chlorhexidine Gluconate 15 ml 11/12/23 21:00 11/13/23 21:44 Chlorhexidine Gluconate 15 Ml Cup MUCOUS MEM 15 ml BID NIRMAL Administration Hydromorphone HCl 0.5 mg 11/12/23 13:57 11/14/23 02:16 Hydromorphone 0.5 Mg/0.5 Ml Syringe IVP 0.5 mg Q3HR PRN Administration Pain Lactated Ringer's 1,000 mls @ 100 mls/hr 11/12/23 05:40 11/14/23 00:58 Lactated Ringers IV 12/12/23 05:39 100 mls/hr .Q10H NIRMAL Administration Propofol 1,000 mg/ IV Solution 100 mls @ 8.262 mls/hr 11/12/23 11:15 11/14/23 04:52 IV 50 mcg/kg/min .Q12H7M NIRMAL 27.54 mls/hr Administration Protocol 15 MCG/KG/MIN Piperacillin Sod/Tazobactam 100 mls @ 25 mls/hr 11/12/23 16:00 11/13/23 23:26 Sod 3.375 gm/ Sodium Chloride IVPB 25 mls/hr Q8HR NIRMAL Administration Protocol Norepinephrine Bitartrate 4 mg 254 mls @ 10.493 mls/hr 11/12/23 19:00 11/14/23 05:01 / Sodium Chloride IV 0.06 mcg/kg/min .Q24H NIRMAL 20.985 mls/hr Administration Protocol 0.03 MCG/KG/MIN Lidocaine HCl 0.1 ml 11/12/23 05:40 Lidocaine 1% (10mg/Ml) For Iv Start INTRADERMA 12/12/23 05:39 PER PROTOCOL PRN IV Start Miscellaneous Information 1 each 09/12/24 06:16 Magnesium Replacement Protocol 1 Each Misc MISCELLANE DAILY PRN Per Protocol Protocol Naloxone HCl 0.2 mg 11/12/23 11:32 Naloxone 0.4 Mg/Ml 1 Ml Vial IV Q2M PRN Opioid Reversal Pantoprazole Sodium 40 mg 11/12/23 21:00 11/13/23 23:27 Pantoprazole 40 Mg/10 Ml Vial IVP 40 mg BID NIRMAL Administration Intake and Output 11/13/23 11/14/23 11/14/23 22:59 06:59 14:59 Intake Total 6572.646 0331.403 100 Output Total 965 800 75 Balance 119.381 351.403 25 Intake: IV 800 800 100 Lactated Ringers 1,000 ml 800 800 100 @ 100 mls/hr IV .Q10H NIRMAL Rx#:[id number] Intake, IV Titration 284.381 351.403 Amount Norepinephrine 4 mg In 162.816 Sodium Chloride 0.9% 250 ml @ 0.03 MCG/KG/MIN 10. 493 mls/hr IV .Q24H NIRMAL Rx#:[id number] Piperacillin-Tazobactam 3 100 .375 gm In Sodium Chloride 0.9% 100 ml @ 25 mls/hr IVPB Q8HR NIRMAL Rx# :[id number] propofoL 1,000 mg In 184.381 188.587 Empty Bag 1 bag @ 15 MCG/ KG/MIN 8.262 mls/hr IV . Q12H7M NIRMAL Rx#:[id number] Output: Gastric Drainage 150 Urine 815 800 75 Other: Voiding Method Indwelling Catheter Indwelling Catheter Weight 97.9 kg 11/14/23 04:04 11/14/23 04:04
--- NOTE | 2023-11-14 07:58 | XR ---
EXAMINATION TYPE: XR chest 1V portable DATE OF EXAM: 11/14/2023 COMPARISON: 11/13/2023 HISTORY: SOB, Follow Up FINDINGS: Indwelling tubes and catheters are unchanged. There is perihilar left lower lobe increased density which may reflect infiltrate or pulmonary venous congestion with interstitial edema. Small effusions noted. Overall stable chest. Stable appearance of the cardio-mediastinal structures at this time. Pleural effusion unchanged. IMPRESSION: 1. Stable portable chest. Clinical correlation and follow up until resolution is recommended.
--- NOTE | 2023-11-14 10:39 | P.NPCON ---
History of Present Illness - Reason for Consult acute renal failure - History of Present Illness Reason for consultation: Acute kidney injury History of present illness: Patient is a 73-year-old male seen in renal consultation for acute kidney injury. Patient's creatinine on admission is November 12, 2023 was 0.86 and was up to 1.57 yesterday. It is improved to 1.21 today. Patient came in for endoscopy due to chronic epigastric pain for about 8 months duration. Patient also lost 22 pounds in the last 4 months. Patient underwent EGD which showed large superficial gastric antral ulcer as well as ulceration extending into the pylorus causing pyloric stenosis and gastric outlet obstruction. There was concern for aspiration. Patient was subsequently intubated. He is currently on Levophed. Also on IV antibiotics. Nonoliguric. Denies use of nonsteroidals per family. No history of coronary artery disease. No history of diabetes. Denies family history of renal disease. Vital signs are stable. On Levophed. General: Resting in bed. HEENT: Intubated. LUNGS: No audible rhonchi or wheezes. HEART: Rate and Rhythm are regular. ABDOMEN: No distention. EXTREMITITES: No edema. Past Medical History Past Medical History: GERD/Reflux History of Any Multi-Drug Resistant Organisms: None Reported Past Surgical History: Heart Catheterization Additional Past Surgical History / Comment(s): colonsocopy,spinal injection, Past Anesthesia/Blood Transfusion Reactions: No Reported Reaction Past Psychological History: No Psychological Hx Reported Smoking Status: Never smoker Past Alcohol Use History: None Reported Past Drug Use History: None Reported - Past Family History Father Family Medical History: Cancer Medications and Allergies Home Medications Medication Instructions Recorded Confirmed Type Fluticasone Nasal [place] [Flonase 2 spray EA NOSTRIL DAILY 11/11/23 11/12/23 History Nasal [place]] Pantoprazole Sodium 40 mg PO BID 11/11/23 11/12/23 History Allergies Allergy/AdvReac Type Severity Reaction Status Date / Time No Known Allergies Allergy Verified 11/12/23 09:32 Physical Exam Vitals: Vital Signs Temp Pulse Resp BP Pulse Ox FiO2 11/14/23 10:00 98 22 118/59 98 11/14/23 09:40 98.3 F 100 22 118/59 11/14/23 09:30 98 22 120/61 98 11/14/23 09:20 98.3 F 98 20 116/58 11/14/23 09:16 45 11/14/23 09:09 98.3 F 100 23 117/60 11/14/23 09:00 98.5 F 98 17 117/65 98 11/14/23 08:30 102 H 20 123/66 99 11/14/23 08:07 102 H 11/14/23 08:00 98.3 F 101 H 22 116/65 99 45 11/14/23 07:48 98 11/14/23 07:47 50 11/14/23 07:30 99 19 114/58 98 11/14/23 07:00 102 H 22 118/59 98 11/14/23 06:30 103 H 20 113/56 98 11/14/23 06:00 105 H 22 118/57 98 11/14/23 05:30 105 H 22 121/59 97 11/14/23 05:00 107 H 22 123/59 97 11/14/23 04:45 104 H 11/14/23 04:31 105 H 11/14/23 04:30 106 H 22 126/62 98 11/14/23 04:29 50 11/14/23 04:00 98.3 F 108 H 22 127/64 98 50 11/14/23 03:30 112 H 19 123/58 97 11/14/23 03:00 179 H 22 119/57 97 11/14/23 02:30 118 H 19 110/61 99 11/14/23 02:00 124 H 25 H 137/67 99 11/14/23 01:30 125 H 21 129/60 99 11/14/23 01:00 98 35 H 123/58 96 11/14/23 00:50 102 H 11/14/23 00:43 96 22 122/60 99 11/14/23 00:35 100 11/14/23 00:34 50 11/14/23 00:30 94 20 125/57 99 11/14/23 00:00 98.4 F 94 19 123/57 99 50 11/13/23 23:30 94 20 126/56 99 11/13/23 23:00 94 22 120/56 99 11/13/23 22:30 96 20 118/55 99 11/13/23 22:00 95 22 118/54 99 11/13/23 21:30 94 20 118/54 100 11/13/23 21:00 96 19 108/54 99 11/13/23 20:30 97 22 116/52 99 11/13/23 20:05 103 H 11/13/23 20:00 98.5 F 99 22 122/62 100 50 11/13/23 19:55 50 11/13/23 19:50 100 11/13/23 19:47 50 11/13/23 19:30 98 19 114/57 99 11/13/23 19:00 96 18 112/56 99 11/13/23 18:30 95 19 118/57 98 11/13/23 18:00 97 22 104/55 99 11/13/23 17:30 99 22 104/50 99 11/13/23 17:00 105 H 20 108/54 98 11/13/23 16:30 112 H 26 H 131/63 100 11/13/23 16:00 98.3 F 113 H 25 H 99/59 100 50 11/13/23 15:30 109 H 22 107/52 100 11/13/23 15:25 102 H 11/13/23 15:17 106 H 11/13/23 15:15 50 11/13/23 15:00 105 H 22 112/58 100 11/13/23 14:30 107 H 21 119/56 100 11/13/23 14:00 108 H 23 120/56 100 11/13/23 13:30 110 H 34 H 135/65 100 11/13/23 13:00 105 H 20 98/52 100 11/13/23 12:30 109 H 19 112/55 100 11/13/23 12:00 108 H 18 119/65 100 50 11/13/23 11:47 104 H 11/13/23 11:37 100 11/13/23 11:31 50 11/13/23 11:30 100 19 121/62 99 11/13/23 11:00 101 H 20 108/63 99 Intake and Output 11/13/23 11/14/23 11/14/23 22:59 06:59 14:59 Intake Total 3521.789 3480.403 653.068 Output Total 965 800 255 Balance 119.381 351.403 398.068 Intake: IV 800 800 400 Lactated Ringers 1,000 ml 800 800 400 @ 100 mls/hr IV .Q10H NIRMAL Rx#:[id number] Intake, IV Titration 284.381 351.403 253.068 Amount Norepinephrine 4 mg In 162.816 83.300 Sodium Chloride 0.9% 250 ml @ 0.03 MCG/KG/MIN 10. 493 mls/hr IV .Q24H NIRMAL Rx#:[id number] Piperacillin-Tazobactam 3 100 100 .375 gm In Sodium Chloride 0.9% 100 ml @ 25 mls/hr IVPB Q8HR NIRMAL Rx# :[id number] propofoL 1,000 mg In 184.381 188.587 69.768 Empty Bag 1 bag @ 15 MCG/ KG/MIN 8.262 mls/hr IV . Q12H7M NIRMAL Rx#:[id number] Blood Product 0 Rc Pheresis As-3 Unit 0 [id number] Output: Gastric Drainage 150 Urine 815 800 255 Other: Voiding Method Indwelling Catheter Indwelling Catheter Indwelling Catheter Weight 97.9 kg Results - Lab Results Most recent lab results ABG pH 7.32 (7.35-7.45) L 11/14/23 05:43 ABG pCO2 51 mmHg (35-45) H 11/14/23 05:43 ABG pO2 123 mmHg (83-108) H 11/14/23 05:43 ABG HCO3 26 mmol/L (21-25) H 11/14/23 05:43 ABG O2 Saturation 99.4 % (94-97) H 11/14/23 05:43 Calcium 8.2 mg/dL (8.4-10.2) L 11/14/23 04:04 Phosphorus 4.1 mg/dL (2.5-4.5) 11/12/23 12:56 Magnesium 1.8 mg/dL (1.6-2.3) 11/14/23 04:04 11/14/23 04:04 11/14/23 04:04 Assessment and Plan Plan: Assessment: 1. Acute kidney injury secondary to vasomotor nephropathy secondary to hypotension. Creatinine 0.86 on admission and peaked at 1.57 this admission. 1.21 today. 2. Acute blood loss anemia receiving unit of blood today. 3. Gastric antral ulceration with pyloric stenosis. Plan: Maintain IV fluids. Wean FiO2 and Levophed. Avoid nephrotoxins. Continue to monitor renal function and urine output. Check UA. Check renal ultrasound. Thank you for the consultation. I will continue to follow the patient with you during his hospital stay.
[2023-11-14 11:05] LABS: % Iron Saturation 1.64 (15.00-50.00); Ferritin 34.6 ng/mL (22.0-322.0); Iron 6 UG/DL (65-175); Total Iron Binding Capacity 365 UG/DL (228-460)
--- NOTE | 2023-11-14 11:24 | US ---
EXAMINATION TYPE: US kidneys/renal and bladder DATE OF EXAM: 11/14/2023 COMPARISON: NONE CLINICAL INDICATION: Male, 73 years old with history of kendrick; intubated ICU patient EXAM MEASUREMENTS: Right Kidney: 10.1 x 4.4 x 4.8 cm Left Kidney: 9.8 x 4.8 x 4.8 cm Right Kidney: No hydronephrosis or masses seen Left Kidney: No hydronephrosis or masses seen - limited visibility Bladder: has silverio, not seen There is no evidence for hydronephrosis at this point in time. No nephrolithiasis is seen. No francoise s are identified. IMPRESSION: No significant abnormality seen.
[2023-11-14] MEDS: DEXMEDETOMIDINE/0.9% NACL(PMX) 400 MCG in EMPTY BAG 1 BAG IV SCH (12:27)
[2023-11-14] MEDS: DEXTROSE 5% IN WATER 100 ML with AMIODARONE 150 MG IV ONE (12:32)
--- NOTE | 2023-11-14 12:39 | P.PN ---
Subjective Progress Note Date: 11/14/23 Principal diagnosis: Acute hypoxic respiratory failure requiring intubation mechanical ventilation secondary to aspiration. This is a 73-year-old white male with history of chronic abdominal pain for the last 8 months has been treated with Protonix 40 mg daily for the last 3 months with no improvement. Patient had a 22 pound weight loss in the last [address] of the abdomen and pelvis 3 weeks ago showed thickening of the antral wall with pathological adenopathy posterior to the stomach suspicious of neoplasm. Today the patient underwent elective upper endoscopy to evaluate further, patient received IV sedation by anesthesia endoscope was inserted into the mouth, esop hagus was intubated without any difficulty there was evidence of large amount of liquid and solid food noted in the stomach suggestive of gastric outlet obstruction. Scope could not be advanced through the pylorus, however in the prepyloric area there was a large superficial ulceration identified with multiple biopsies were done from this area. The body cardia and fundus could not adequately visualize because of large amount of retained food in the stomach. Scope was withdrawn back to the stomach and upon careful examination the mucosa of the antrum body and cardia as well as the fundus appeared normal. Procedure was being performed and biopsies were done patient threw up and subsequently became hypoxic there was clearly evidence of witnessed aspiration anesthesia intubated the patient, procedure was terminated, and the patient was transferred to the ICU, this consult was initiated. Patient is now on assist- control rate of 20 tidal volume 500 FiO2 70% PEEP of 10 ABG is pending, earlier ABG showed profound hypoxia patient is on propofol at 50 mcg/kg/min, next ABG is pending. Chest x-ray showed chronic changes without evidence of acute pulmonary disease. Patient was seen and examined today on 11/13/2023, remains in the ICU, intubated mechanically ventilated, on assist-control rate of 20 tidal volume 500 FiO2 50% and PEEP of 10 ABG showed a pO2 of 143 pCO2 47 pH of 7.28 hence PEEP was cut down to 6, and increased rate to 22. Patient is still requiring IV fluid at 100 cc/h/LR. Requiring norepinephrine at 0.08 mcg/kg/min he is also on propofol at 50 mg/kg/min antibiotics arce patient is receiving Zosyn. Chest x-ray is showing worsening infiltrates specially in the left lung. This could be related to aspiration pneumonia. Patient had witnessed aspiration during end oscopy/upper endoscopy.WBC count is 14 hemoglobin 7.6 basic metabolic profile is normal BUN is 26 creatinine 1.57 obviously the patient sustained some acute kidney injury baseline creatinine 0.86 patient had received fluids over the last 24 hours, remains on fluids at 100 cc/h Patient with seen and examined today on 11/14/2023, patient remains in the ICU, intubated and mechanically ventilated. Failed weaning trial yesterday and he became quite agitated and desaturated once he went off propofol. Had to be placed back on assist-control mode of mechanical ventilation and sedation. Today the patient is on assist-control rate of 22 tidal volume 500 FiO2 50% PEEP of 6. ABG showed a pO2 of 123 pCO2 51 pH of 7.32, and I cut down his FiO2 down to 45%, patient is receiving a unit of packed RBCs for hemoglobin of 6.9 today. Patient had an episode of A-fib RVR at 3 AM in the morning, seen by cardiology, and recommended patient goes on amiodarone. Still requiring norepinephrine at 0.05 mg/kg/min, he is on LR at 100 cc/h propofol at 50 mg/kg/min. Remains empirically on Zosyn for aspiration pneumonia. My plan today is transitioning the patient to Precedex, hopefully discontinue propofol, and at least give the patient a decent weaning trial or at least check weaning parameters before we proceed to weaning trial. Chest x-ray continues to show evidence of pneumonia mostly in the left lung and left lower lobe more specifically. Some pulmonary vascular congestion is noted with interstitial edema, small pleural effusion is also noted/left side. WBC count today is 12 hemoglobin 6.9 basic metabolic profile is normal bicarb is 25, BUN is 25 creatinine is improving down to 1.21 from 1.57 yesterday Objective - Vital Signs Vital signs: Vital Signs Temp 98.3 F 11/14/23 12:18 Pulse 92 11/14/23 12:18 Resp 22 11/14/23 12:18 BP 103/61 11/14/23 12:18 Pulse Ox 99 11/14/23 11:00 FiO2 45 11/14/23 11:29 Intake & Output 11/13/23 11/14/23 11/14/23 18:59 06:59 18:59 Intake Total 3495.875 6728.433 1266.573 Output Total 1660 1140 335 Balance 85.910 489.433 931.573 Weight 97.9 kg Intake: IV 960 1200 600 Lactated Ringers 1,000 ml 960 1200 600 @ 100 mls/hr IV .Q10H [facility] Rx#:[id number] Intake, IV Titration 785.910 429.433 381.573 Amount Norepinephrine 4 mg In 262.452 162.816 111.805 Sodium Chloride 0.9% 250 ml @ 0.03 MCG/KG/MIN 10. 493 mls/hr IV .Q24H [facility] Rx#:[id number] Piperacillin-Tazobactam 3 200 100 .375 gm In Sodium Chloride 0.9% 100 ml @ 25 mls/hr IVPB Q8HR [facility] Rx# :[id number] propofoL 1,000 mg In 323.458 266.617 169.768 Empty Bag 1 bag @ 15 MCG/ KG/MIN 8.262 mls/hr IV . Q12H7M [facility] Rx#:[id number] Blood Product 285 Rc Pheresis As-3 Unit 285 [id number] Output: Gastric Drainage 150 Urine 1510 1140 335 Other: Voiding Method Indwelling Catheter Indwelling Catheter Indwelling Catheter - Exam General: Revealed 73-year-old white male intubated, mechanically ventilated. Skin: Skin is warm and dry and no rashes or lesions are noted. Eye: Pupils are equal, round and reactive to light, extra-ocular movements are intact; there is normal conjunctiva bilaterally. Ears, nose, mouth and throat: There are moist mucous membranes and no oral lesions. Neck: The neck is supple, there is no tenderness or JVD. Endotracheal tube is noted to be intact, nasogastric tube is also intact. Continues to have significant amount of drainage from stomach Cardiovascular: There is a regular rate and rhythm. No murmur, rub or gallop is appreciated. Respiratory: Bilateral crackles. At the bases mostly Gastrointestinal: Soft, non-distended, non-tender abdomen without masses or organomegaly noted. There is no rebound or guarding present. Bowel sounds are unremarkable. Musculoskeletal: No evidence of deformities. Neurological: Could not assess patient is sedated, on propofol. Psychiatric: Could not fully assess, patient is sedated, on propofol - Labs CBC & Chem 7: 11/14/23 04:04 09/12/24 04:04 Labs: Abnormal Lab Results - Last 24 Hours (Table) 11/13/23 11/13/23 11/14/23 Range/Units 17:30 23:35 04:04 WBC (3.8-10.6) k/uL RBC (4.30-5.90) m/uL Hgb (13.0-17.5) gm/dL Hct (39.0-53.0) % Neutrophils # (1.3-7.7) k/uL Lymphocytes # (1.0-4.8) k/uL ABG pH (7.35-7.45) ABG pCO2 (35-45) mmHg ABG pO2 (83-108) mmHg ABG HCO3 (21-25) mmol/L ABG Total CO2 (19-24) mmol/L ABG O2 Saturation (94-97) % Hemoglobin (13.0-17.5) gm/dL Sodium 133 L (137-145) mmol/L BUN 25 H (9-20) mg/dL Glucose 133 H (74-99) mg/dL POC Glucose (mg/dL) 128 H 130 H (70-110) mg/dL Calcium 8.2 L (8.4-10.2) mg/dL Iron 6 L (65-175) UG/DL % Saturation 1.64 L (15.00-50.00) AST 15 L (17-59) U/L Total Protein 5.1 L (6.3-8.2) g/dL Albumin 2.6 L (3.5-5.0) g/dL Crossmatch 11/14/23 11/14/23 11/14/23 Range/Units 04:04 05:43 05:52 WBC 12.0 H (3.8-10.6) k/uL RBC 2.54 L (4.30-5.90) m/uL Hgb 6.9 L* (13.0-17.5) gm/dL Hct 22.2 L (39.0-53.0) % Neutrophils # 10.5 H (1.3-7.7) k/uL Lymphocytes # 0.7 L (1.0-4.8) k/uL ABG pH 7.32 L (7.35-7.45) ABG pCO2 51 H (35-45) mmHg ABG pO2 123 H (83-108) mmHg ABG HCO3 26 H (21-25) mmol/L ABG Total CO2 28 H (19-24) mmol/L ABG O2 Saturation 99.4 H (94-97) % Hemoglobin 6.6 L* (13.0-17.5) gm/dL Sodium (137-145) mmol/L BUN (9-20) mg/dL Glucose (74-99) mg/dL POC Glucose (mg/dL) (70-110) mg/dL Calcium (8.4-10.2) mg/dL Iron (65-175) UG/DL % Saturation (15.00-50.00) AST (17-59) U/L Total Protein (6.3-8.2) g/dL Albumin (3.5-5.0) g/dL Crossmatch See Detail 11/14/23 Range/Units 06:10 WBC (3.8-10.6) k/uL RBC (4.30-5.90) m/uL Hgb (13.0-17.5) gm/dL Hct (39.0-53.0) % Neutrophils # (1.3-7.7) k/uL Lymphocytes # (1.0-4.8) k/uL ABG pH (7.35-7.45) ABG pCO2 (35-45) mmHg ABG pO2 (83-108) mmHg ABG HCO3 (21-25) mmol/L ABG Total CO2 (19-24) mmol/L ABG O2 Saturation (94-97) % Hemoglobin (13.0-17.5) gm/dL Sodium (137-145) mmol/L BUN (9-20) mg/dL Glucose (74-99) mg/dL POC Glucose (mg/dL) 157 H (70-110) mg/dL Calcium (8.4-10.2) mg/dL Iron (65-175) UG/DL % Saturation (15.00-50.00) AST (17-59) U/L Total Protein (6.3-8.2) g/dL Albumin (3.5-5.0) g/dL Crossmatch Microbiology - Last 24 Hours (Table) 11/13/23 01:20 Gram Stain - Preliminary Sputum Sputum Culture - Preliminary Assessment and Plan Assessment: Impression: Acute hypoxic respiratory failure requiring intubation mechanical ventilation secondary to aspiration. Acute aspiration pneumonia Acute aspiration during upper endoscopy most likely secondary to gastric outlet obstruction Possible stomach malignancy, awaiting pathology from recent biopsies of the stomach Chronic abdominal pain Unexplained weight loss most likely secondary to underlying malignancy. Paroxysmal atrial fibrillation, seen by cardiology placed on amiodarone. Recommendation: Continue ventilatory support however we will definitely consider a weaning trial on Precedex instead of propofol today. Family was updated on his condition Sedation interruption was not tolerated yesterday. Hence the patient had to go back on propofol. Continue IV fluids Continue nasogastric tube to suction Continue antibiotics in the form of Zosyn for aspiration pneumonia GI and DVT prophylaxis Patient remains critically ill Critical care time is over 30 minutes. Time with Patient: Greater than 30
[2023-11-14] MEDS: AMIODARONE 360 MG in DEXTROSE 5% IN WATER 200 ML IV ONE (12:44)
[2023-11-14 15:06] LABS: HCT 22.5 % (39.0-53.0); HGB 7.2 gm/dL (13.0-17.5); Hypochromasia Marked; MCH 27.7 pg (25.0-35.0); MCV 86.6 fL (80.0-100.0); Mean Platelet Volume 7.3; Platelet Count 233 k/uL (150-450); Poikilocytosis Slight; RDW 14.9 % (11.5-15.5); WBC 9.7 k/uL (3.8-10.6)
--- NOTE | 2023-11-14 15:17 | P.PN ---
Progress Note - Text Progress Note Date: 11/14/23 Chief Complaint: Aspirated This is a 73-year-old patient, follows with Dr. Patricia Deal. Patient was seen this morning in the ICU. Patient's and daughter at the bedside. History obtained predominantly by the . Patient been having trouble with his stomach symptoms for close to 8 months. Patient underwent EGD by Dr. Sahara Cheng yesterday. Patient was found to have ulcerated around the antrum and obstruction to the pylorus. A lot of retained food was found. Patient aspirated. Had to be intubated and brought to the ICU. On a Levophed drip. FiO2 50 and a PEEP of 6. Patient had been losing weight lost about 25 pounds. Previously has a history of mitral valve prolapse. November 13: ICU. Patient remains on Precedex drip and propofol drip. Did not do well attempted extubation yesterday. Patient been off Levophed. NG tube to suction. Spoke to patient's and son at the bedside. Biopsy results awaited. Hemoglobin dropped to 6.9 this morning. Get a unit of blood. Active Medications Albuterol/Ipratropium (Ipratropium-Albuterol 3 Ml Neb) 3 ml INHALATION RT-Q4H [facility] Last Admin: 11/14/23 11:32 Dose: 3 ml Chlorhexidine Gluconate (Chlorhexidine Gluconate 15 Ml Cup) 15 ml MUCOUS MEM BID [facility] Last Admin: 11/14/23 08:32 Dose: 15 ml Hydromorphone HCl (Hydromorphone 0.5 Mg/0.5 Ml Syringe) 0.5 mg IVP Q3HR PRN PRN Reason: Pain Last Admin: 11/14/23 02:16 Dose: 0.5 mg Lactated Ringer's (Lactated Ringers) 1,000 mls @ 100 mls/hr IV .Q10H [facility] Stop: 12/12/23 05:39 Last Admin: 11/14/23 11:27 Dose: 100 mls/hr Propofol 1,000 mg/ IV Solution 100 mls @ 8.262 mls/hr IV .Q12H7M [facility]; Protocol Last Titration: 11/14/23 15:05 Dose: 10 mcg/kg/min, 5.508 mls/hr Piperacillin Sod/Tazobactam (Sod 3.375 gm/ Sodium Chloride) 100 mls @ 25 mls/hr IVPB Q8HR [facility]; Protocol Last Admin: 11/14/23 08:32 Dose: 25 mls/hr Norepinephrine Bitartrate 4 mg (/ Sodium Chloride) 254 mls @ 10.493 mls/hr IV .Q24H [facility]; Protocol Last Titration: 11/14/23 12:00 Dose: 0 mcg/kg/min, 0 mls/hr Dexmedetomidine HCl 400 mcg/ (IV Solution) 100 mls @ 4.895 mls/hr IV .V07L41P [facility]; Protocol Last Titration: 11/14/23 15:07 Dose: 0.6 mcg/kg/hr, 14.685 mls/hr Amiodarone HCl 360 mg/ (Dextrose/Water) 200 mls @ 33.333 mls/hr IV .Q6H [facility]; Protocol Stop: 11/14/23 16:49 Last Admin: 11/14/23 12:44 Dose: 1 mg/min, 33.333 mls/hr Amiodarone HCl 450 mg/ (Dextrose/Water) 250 mls @ 16.667 mls/hr IV .Q15H [facility]; Protocol Stop: 11/15/23 10:59 Lidocaine HCl (Lidocaine 1% (10mg/Ml) For Iv Start) 0.1 ml INTRADERMA PER PROTOCOL PRN PRN Reason: IV Start Stop: 12/12/23 05:39 Miscellaneous Information (Magnesium Replacement Protocol 1 Each Misc) 1 each MISCELLANE DAILY PRN; Protocol PRN Reason: Per Protocol Naloxone HCl (Naloxone 0.4 Mg/Ml 1 Ml Vial) 0.2 mg IV Q2M PRN PRN Reason: Opioid Reversal Pantoprazole Sodium (Pantoprazole 40 Mg/10 Ml Vial) 40 mg IVP BID [facility] Last Admin: 11/14/23 08:32 Dose: 40 mg Past medical history to include: GERD Social history: . No smoking. Physical examination: VITAL SIGNS: 73, 22, 95/57, 99% on the ventilator GENERAL: BMI 29.3, intubated sedated. EYES: Pupils equal. Conjunctiva edouard l. HEENT: External appearance of nose and ears normal, oral cavity grossly normal. Endotracheal tube. NECK: JVD unable to assess; masses not palpable. HEART: First and second heart sounds are normal; no edema. LUNGS: Respiratory rate increased decreased breath sounds. ABDOMEN: Soft, nontender, liver spleen not palpable, no masses palpable. PSYCH: [Patient intubated l. MUSCULOSKELETAL:No Clubbing/cyanosis;muscles-grossly intact NEUROLOGICAL: Cranial nerves grossly intact; no facial asymmetry, power and sensation grossly intact. INVESTIGATIONS, reviewed in the clinical context: Kidneys bladder: Unremarkable November 13: White count 12 hemoglobin 6.9 platelets 276 potassium 4.4 creatinine 1.21 magnesium 1.8 iron 6 TIBC 365% saturation 1.64 transferrin 261 ferritin 34.6 B12 569 folate 4.4 November 12: White count 14 hemoglobin 7.6 platelets 333 sodium 136 BUN 26 creatinine 1.57 November 11: Creatinine 0.86 EGD: Large amount of retained solid liquid food noted in the stomach. Large superficial gastric antral ulceration involving most of the antrum extending into the pylorus causing pyloric stenosis. Biopsies were obtained. Chest x-ray film personally reviewed by me-scattered infiltrates Assessment plan: -Aspiration pneumonitis bilateral from retained gastric contents mostly food and liquids, causing acute hypoxic respiratory failure: Slow to respond IV Zosyn -Acute kidney injury. Possible ATN from hypotensive shock: Slow improvement Strict I's and O's. Follow renal function. Renal ultrasound unremarkable Seen by nephrology. IV fluids. I's and O's. -Acute hypoxic respiratory failure from aspiration pneumonia, currently ventilator assisted: Slow to respond FiO2 50 and a PEEP of 6. -Normocytic anemia likely of chronic disease/iron deficient Iron deficiency anemia -Acute blood loss anemia, could be oozing from biopsy site in the stomach Follow H&H -GERD PPI -Large superficial gastric antral ulceration involving the gastric antrum extending into the pylorus with gastric outlet obstruction. Concern for underlying malignancy. Biopsies results pending -Full code Discussed with son in the at the bedside. Questions answered Past Medical History Past Medical History: GERD/Reflux History of Any Multi-Drug Resistant Organisms: None Reported Past Surgical History: Heart Catheterization Additional Past Surgical History / Comment(s): colonsocopy,spinal injection, Past Anesthesia/Blood Transfusion Reactions: No Reported Reaction Past Psychological History: No Psychological Hx Reported Smoking Status: Never smoker Past Alcohol Use History: None Reported Past Drug Use History: None Reported
[2023-11-14 15:22] LABS: Amorphous Sediment,Urine Moderate /hpf; Appearance,Urine Turbid (Clear); Bilirubin,Urine Negative (Negative); Blood,Urine Negative (Negative); Color,Urine Light Yellow; Glucose,Urine (UA) Negative (Negative); Ketones,Urine Negative (Negative); Leukocyte Esterase,Urine Negative (Negative); Mucus,Urine Rare /hpf; Nitrite,Urine Negative (Negative); PH, Urine 5.5 (5.0-8.0); Protein,Urine Trace (Negative); Specific Gravity,Urine 1.019 (1.001-1.035); Squamous Epithelial Cell,Urine <1 /hpf (0-4); Triple Phosphate Crystal,Urine Moderate /hpf; Urobilinogen,Urine <2.0 mg/dL (<2.0); WBC,Urine 3 /hpf (0-5)
--- NOTE | 2023-11-14 15:49 | P.PN ---
Subjective Progress Note Date: 11/14/23 Principal diagnosis: Aspiration 73-year-old male who is scheduled for outpatient upper endoscopy for complaints of chronic epigastric pain over the last 8 months duration and weight loss of 22 pounds over the last 4 months duration. Today he underwent upper endoscopy today and was found to have large amount of retained food in his stomach with evidence of large superficial gastric antral ulcer involving most of the antrum extending into the pylorus causing pyloric stenosis. Scope could not be advanced any further through the pylorus suggestive of gastric outlet obstructi on. Multiple biopsies were done from the gastric antral ulceration. During this process patient had aspirated and had a drop in his oxygen saturation and needed to be intubated per anesthesia. He was s admitted to the hospital and transferred to the to the ICU currently remains intubated with NG tube placed with about 200 cc of gastric output. 11/13/2023 Patient remains in the ICU sedated and intubated on mechanical ventilation. Family at the bedside. Had approximately 6-700 output of the NG tube since yesterday until this morning. Currently no output at this time. Chest x-ray reports perihilar increased density may reflect developing infiltrate. Patient has been afebrile. 11/14/2023 Patient seen and examined today as a follow-up. He remains in the ICU sedated and mechanical ventilation. Weaning trial yesterday was stopped as patient was not tolerating it well. Clear liquid through the NG tube was not trialed as patient was restless. Supposed to do another sedation holiday and weaning trial today. Patient is having minimal output from the NG tube. He has been afebrile . Objective - Vital Signs Vital signs: Vital Signs Temp 98.3 F 11/14/23 09:40 Pulse 98 11/14/23 10:00 Resp 22 11/14/23 10:00 BP 118/59 11/14/23 10:00 Pulse Ox 98 11/14/23 10:00 FiO2 45 11/14/23 09:16 Intake & Output 11/13/23 11/14/23 11/14/23 18:59 06:59 18:59 Intake Total 5056.938 5329.433 653.068 Output Total 1660 1140 255 Balance 85.910 489.433 398.068 Weight 97.9 kg Intake: IV 960 1200 400 Lactated Ringers 1,000 ml 960 1200 400 @ 100 mls/hr IV .Q10H [facility] Rx#:[id number] Intake, IV Titration 785.910 429.433 253.068 Amount Norepinephrine 4 mg In 262.452 162.816 83.300 Sodium Chloride 0.9% 250 ml @ 0.03 MCG/KG/MIN 10. 493 mls/hr IV .Q24H [facility] Rx#:[id number] Piperacillin-Tazobactam 3 200 100 .375 gm In Sodium Chloride 0.9% 100 ml @ 25 mls/hr IVPB Q8HR [facility] Rx# :[id number] propofoL 1,000 mg In 323.458 266.617 69.768 Empty Bag 1 bag @ 15 MCG/ KG/MIN 8.262 mls/hr IV . Q12H7M [facility] Rx#:[id number] Blood Product 0 Rc Pheresis As-3 Unit 0 [id number] Output: Gastric Drainage 150 Urine 1510 1140 255 Other: Voiding Method Indwelling Catheter Indwelling Catheter Indwelling Catheter - Exam General appearance: The patient is sedated, intubated. HET: Head is normocephalic and atraumatic. NG tube in place. Neck: Supple without lymphadenopathy. Abdomen: Soft, nondistended. Extremities: Normal skin color and turgor. No pedal edema Skin: No rashes, no jaundice Neurological: Sedated and intubated. - Labs CBC & Chem 7: 11/14/23 14:50 11/14/23 04:04 Labs: Abnormal Lab Results - Last 24 Hours (Table) 11/13/23 11/13/23 11/13/23 Range/Units 11:58 17:30 23:35 WBC (3.8-10.6) k/uL RBC (4.30-5.90) m/uL Hgb (13.0-17.5) gm/dL Hct (39.0-53.0) % Neutrophils # (1.3-7.7) k/uL Lymphocytes # (1.0-4.8) k/uL ABG pH (7.35-7.45) ABG pCO2 (35-45) mmHg ABG pO2 (83-108) mmHg ABG HCO3 (21-25) mmol/L ABG Total CO2 (19-24) mmol/L ABG O2 Saturation (94-97) % Hemoglobin (13.0-17.5) gm/dL Sodium (137-145) mmol/L BUN (9-20) mg/dL Glucose (74-99) mg/dL POC Glucose (mg/dL) 137 H 128 H 130 H (70-110) mg/dL Calcium (8.4-10.2) mg/dL AST (17-59) U/L Total Protein (6.3-8.2) g/dL Albumin (3.5-5.0) g/dL Crossmatch 11/14/23 11/14/23 11/14/23 Range/Units 04:04 04:04 05:43 WBC 12.0 H (3.8-10.6) k/uL RBC 2.54 L (4.30-5.90) m/uL Hgb 6.9 L* (13.0-17.5) gm/dL Hct 22.2 L (39.0-53.0) % Neutrophils # 10.5 H (1.3-7.7) k/uL Lymphocytes # 0.7 L (1.0-4.8) k/uL ABG pH 7.32 L (7.35-7.45) ABG pCO2 51 H (35-45) mmHg ABG pO2 123 H (83-108) mmHg ABG HCO3 26 H (21-25) mmol/L ABG Total CO2 28 H (19-24) mmol/L ABG O2 Saturation 99.4 H (94-97) % Hemoglobin 6.6 L* (13.0-17.5) gm/dL Sodium 133 L (137-145) mmol/L BUN 25 H (9-20) mg/dL Glucose 133 H (74-99) mg/dL POC Glucose (mg/dL) (70-110) mg/dL Calcium 8.2 L (8.4-10.2) mg/dL AST 15 L (17-59) U/L Total Protein 5.1 L (6.3-8.2) g/dL Albumin 2.6 L (3.5-5.0) g/dL Crossmatch 11/14/23 11/14/23 Range/Units 05:52 06:10 WBC (3.8-10.6) k/uL RBC (4.30-5.90) m/uL Hgb (13.0-17.5) gm/dL Hct (39.0-53.0) % Neutrophils # (1.3-7.7) k/uL Lymphocytes # (1.0-4.8) k/uL ABG pH (7.35-7.45) ABG pCO2 (35-45) mmHg ABG pO2 (83-108) mmHg ABG HCO3 (21-25) mmol/L ABG Total CO2 (19-24) mmol/L ABG O2 Saturation (94-97) % Hemoglobin (13.0-17.5) gm/dL Sodium (137-145) mmol/L BUN (9-20) mg/dL Glucose (74-99) mg/dL POC Glucose (mg/dL) 157 H (70-110) mg/dL Calcium (8.4-10.2) mg/dL AST (17-59) U/L Total Protein (6.3-8.2) g/dL Albumin (3.5-5.0) g/dL Crossmatch See Detail Assessment and Plan (1) Gastric outlet obstruction Narrative/Plan: 73-year-old scheduled for outpatient procedure found to have significant amount of retained solid and liquid food in the stomach and also noted of large antral ulcer. This is a patient that was being worked up for chronic epigastric pain and unintentional weight loss. During procedure patient he had aspirated subsequently needing intubation and was admitted to the ICU for further evaluation. NG tube is placed with 200 mL of gastric output including food and liquid. Will continue to follow and await biopsy report report Current Visit: Yes Status: Acute Code(s): K31.1 - ADULT HYPERTROPHIC PYLORIC STENOSIS SNOMED Code(s): 962432619 (2) Aspiration into airway Narrative/Plan: Acute hypoxic respiratory failure requiring intubation and mechanical ventilation secondary to above Current Visit: Yes Status: Acute Code(s): T17.908A - UNSP FB IN RESP TRACT, PART UNSP CAUSING OTH INJURY, INIT SNOMED Code(s): 860001823 (3) Gastric ulcer Narrative/Plan: Await biopsy results Current Visit: Yes Status: Acute Code(s): K25.9 - GASTRIC ULCER, UNSP ACUTE OR CHRONIC, W/O HEMOR OR PERF SNOMED Code(s): 470940054 (4) Epigastric pain Current Visit: Yes Status: Acute Code(s): R10.13 - EPIGASTRIC PAIN SNOMED Code(s): 83505545 (5) Unintentional weight loss Current Visit: Yes Status: Acute Code(s): R63.4 - ABNORMAL WEIGHT LOSS SNOMED Code(s): 484356246 Plan: 1. Continue symptomatic and supportive care 2. Continue NG tube to suction, if patient is wean from sedation and extubated may clamp NG tube and trial trial clear liquids 3. Continue with ICU management 4. Await gastric ulcer biopsy results 5. Protonix 40 mg daily for GI prophylaxis 6. Further recommendations forthcoming based on clinical course Thank you for this consultation, we will continue to follow. Dr. Sahara Cheng I agree with the dictator's note, documented as a scribe by Leslee Estes.
[2023-11-14 17:19] LABS: Glucose,Whole Blood 148 mg/dL (70-110)
--- NOTE | 2023-11-14 17:32 | CA ---
Transthoracic Echo Report Name: Salbador Lawton Age: 73 Gender: M : 1950 Exam Date: 11/14/2023 14:20 Exam Location: [place] [facility] Ht (in): 72 Wt (lb): 215 Ordering Physician: Blake Serna MD ([id number]) Attending/Referring Phys: Frit Maker Amira Hwang RDCS Procedure CPT: Indications: a fib RVR Cardiac Hx: Technical Quality: Very technically difficult study Contrast 1: Total Dose (mL): Contrast 2: Total Dose (mL): MEASUREMENTS (Male / Female) Normal Values 2D ECHO LV Diastolic Diameter PLAX 4.3 cm 4.2 - 5.9 / 3.9 - 5.3 cm LV Systolic Diameter PLAX 2.8 cm IVS Diastolic Thickness 1.2 cm 0.6 - 1.0 / 0.6 - 0.9 cm LVPW Diastolic Thickness 1.2 cm 0.6 - 1.0 / 0.6 - 0.9 cm LV Relative Wall Thickness 0.6 RV Internal Dim ED PLAX 3.4 cm LA Systolic Diameter LX 3.5 cm 3.0 - 4.0 / 2.7 - 3.8 cm M-MODE Aortic Root Diameter MM 3.2 cm AV Cusp Separation MM 1.9 cm DOPPLER AV Peak Velocity 134.8 cm/s AV Peak Gradient 7.3 mmHg MV Area PHT 2.6 cm??? Mitral E Point Velocity 70.3 cm/s Mitral A Point Velocity 52.9 cm/s Mitral E to A Ratio 1.3 MV Deceleration Time 290.4 ms TR Peak Velocity 245.3 cm/s TR Peak Gradient 24.1 mmHg Right Ventricular Systolic Press 29.1 mmHg FINDINGS Left Ventricle Left ventricular ejection fraction is estimated at 55-60 %. Left ventricular cavity size normal. Mild left ventricular dilatation. Right Ventricle Mild right ventricular dilatation. Right Atrium Normal right atrial size. No right atrial thrombus or mass seen. Left Atrium Normal left atrial size. Mitral Valve Structurally normal mitral valve. No mitral stenosis, regurgitation or prolapse. Aortic Valve Trileaflet aortic valve. Thickened aortic valve without stenosis. Tricuspid Valve Structurally normal tricuspid valve. Mild tricuspid regurgitation. Pulmonic Valve Pulmonic valve not well visualized. Pericardium No pericardial effusion. Aorta Normal size aortic root and proximal ascending aorta. CONCLUSIONS Normal LV systolic function Previewed by: Dr. Hi Cheng MD (Electronically Signed) Final Date: 14 November 2023 17:32
[2023-11-14] MEDS: AMIODARONE 450 MG in DEXTROSE 5% IN WATER 250 ML IV SCH (18:10)
[2023-11-14 18:15] LABS: ABG HCO3 26 mmol/L (21-25); ABG PCO2 45 mmHg (35-45); ABG PH 7.37 (7.35-7.45); ABG PO2 110 mmHg (83-108); ABG TCO2 27 mmol/L (19-24); Allen Test Performed? Yes
[2023-11-15 00:48] LABS: Glucose,Whole Blood 124 mg/dL (70-110)
--- NOTE | 2023-11-15 02:45 | XR ---
EXAM: XR Chest, 1 View CLINICAL HISTORY: NG placement TECHNIQUE: Frontal view of the chest. COMPARISON: 11/14/2023. FINDINGS: NG tube tip in the stomach. Heart is enlarged. Redemonstrated pulmonary vascular congestion and left perihilar and basilar infiltrate. Probable small left pleural effusion. No pneumothorax. Degenerative changes of the thoracic spine. IMPRESSION: NG tube tip in the stomach. Otherwise no significant change.
--- NOTE | 2023-11-15 04:29 | XR ---
EXAM: XR Chest, 1 View CLINICAL HISTORY: NG placement TECHNIQUE: Frontal view of the chest. COMPARISON: 11/14/2023. FINDINGS: NG tube tip is unchanged within the stomach and left upper quadrant, approximately 6 cm beyond the level the gastroesophageal junction. Heart is enlarged. Slight increase in left basilar and perihilar consolidation. No pleural effusion or pneumothorax. Bones are unchanged. IMPRESSION: NG tube tip is unchanged within the stomach and left upper quadrant, approximately 6 cm beyond the level the gastroesophageal junction. Slight increase in left basilar and perihilar consolidation.
[2023-11-15 05:40] LABS: Basophils % (A) 0 %; Eosinophils # (A) 0.2 k/uL (0-0.7); Eosinophils % (A) 2 %; HCT 24.4 % (39.0-53.0); HGB 7.5 gm/dL (13.0-17.5); Hypochromasia Marked; Lymphocytes # (A) 0.9 k/uL (1.0-4.8); Lymphocytes % (A) 8 %; MCH 26.7 pg (25.0-35.0); MCHC 30.6 g/dL (31.0-37.0); MCV 87.3 fL (80.0-100.0); Mean Platelet Volume 7.1; Monocytes # (A) 0.5 k/uL (0-1.0); Monocytes % (A) 4 %; Neutrophils # (A) 9.1 k/uL (1.3-7.7); Neutrophils % (A) 85 %; Platelet Count 239 k/uL (150-450); Poikilocytosis Slight; RBC 2.79 m/uL (4.30-5.90); RDW 14.8 % (11.5-15.5); WBC 10.7 k/uL (3.8-10.6)
[2023-11-15 06:03] LABS: African American GFR (CKD) >90 (>60 ml/min/1.73 sqM); Anion Gap 7 mmol/L; Blood Urea Nitrogen 20 mg/dL (9-20); Calcium 8.4 mg/dL (8.4-10.2); Carbon Dioxide 24 mmol/L (22-30); Chloride 107 mmol/L (98-107); Glucose 126 mg/dL (74-99); Magnesium 1.9 mg/dL (1.6-2.3); Non-African American GFR(CKD) 79 (>60 ml/min/1.73 sqM); Potassium 4.2 mmol/L (3.5-5.1); Sodium 138 mmol/L (137-145)
[2023-11-15 06:03] LABS: Glucose,Whole Blood 132 mg/dL (70-110)
--- NOTE | 2023-11-15 06:47 | P.PN ---
Subjective Progress Note Date: 11/15/23 The patient is a pleasant 73-year-old gentleman who requested to stay in the ICU for further evaluation of atrial fibrillation with RVR. The patient is currently intubated and the history was taken from the chart. The patient presented to the hospital as an outpatient to undergo an EGD because he was ex periencing epigastric discomfort. There was difficulties in getting the EGD done and the patient developed aspiration. Subsequently he went into respiratory distress and he was intubated and admitted to the intensive care unit. We requested to see the patient for further evaluation of atrial fibr illation with RVR. Apparently no history of atrial fibrillation in the chart. The patient does not have any history of CAD or heart failure or any cardiac arrhythmia. Currently is intubated on mechanical ventilation and currently is on small dose of norepinephrine. Hemoglobin this morning came in to be at 6.9. At least the endoscopy revealed gastric ulcer. The hemoglobin is below 7. He is in process of receiving a blood transfusion. The EKG showed atrial fibrillation but subsequently the patient converted to normal sinus mechanism. The physical examination is remarkable for intubated patient on mechanical ventilation with unstable hemodynamically requiring vasopressors with regular rate and rhythm and distant heart sounds and diminished breathing sounds bilaterally and no edema was noted in the lower extremities November 15, 2023 The patient was seen and evaluated this morning. He is converted to normal sinus mechanism. He is extubated. He seems to be hemodynamically stable as well. He cannot take any oral medication and with that being said and going to keep the patient on the current dose of amiodarone IV. The echo showed normal LV systolic function. The a chest x-ray showed bilateral infiltrate. The examination is remarkable for regular rhythm with a soft systolic murmur and diminished breathing sounds bilaterally. Assessment Anemia likely to be blood loss anemia Acute hypoxic respiratory failure Gastric ulcer Atrial fibrillation of acute illness Multiple comorbid conditions Plan Continue the amiodarone IV as far as the patient cannot take any oral medication Patient cannot be on any anticoagulation at this point The echo showed normal LV systolic function Cardiac enzymes came in to be unremarkable Consider switching the patient to oral amiodarone Objective - Vital Signs Vital signs: Vital Signs Temp 98.2 F 11/15/23 04:00 Pulse 75 11/15/23 06:00 Resp 25 H 11/15/23 06:00 BP 117/59 11/15/23 06:00 Pulse Ox 97 11/15/23 06:00 FiO2 40 11/14/23 19:04 Intake & Output 11/14/23 11/14/23 11/15/23 06:59 18:59 06:59 Intake Total 3991.979 8645.239 1200 Output Total 1140 985 685 Balance 547.683 9980.239 515 Weight 97.9 kg 101 kg Intake: IV 1200 1200 1200 Lactated Ringers 1,000 ml 1200 1200 1200 @ 100 mls/hr IV .Q10H [facility] Rx#:[id number] Intake, IV Titration 429.433 514.239 Amount Dexmedetomidine/0.9% NaCl 47.485 (Pmx) 400 mcg In Empty Bag 1 bag @ 0.2 MCG/KG/HR 4.895 mls/hr IV .[id number] [facility] Rx#:[id number] Norepinephrine 4 mg In 162.816 114.779 Sodium Chloride 0.9% 250 ml @ 0.03 MCG/KG/MIN 10. 493 mls/hr IV .Q24H [facility] Rx#:[id number] Piperacillin-Tazobactam 3 100 .375 gm In Sodium Chloride 0.9% 100 ml @ 25 mls/hr IVPB Q8HR [facility] Rx# :[id number] propofoL 1,000 mg In 266.617 251.975 Empty Bag 1 bag @ 15 MCG/ KG/MIN 8.262 mls/hr IV . Q12H7M [facility] Rx#:[id number] Blood Product 285 Rc Pheresis As-3 Unit 285 [id number] Output: Gastric Drainage 250 Urine 1140 735 685 Other: Voiding Method Indwelling Catheter Indwelling Catheter Indwelling Catheter - Labs CBC & Chem 7: 11/15/23 05:23 11/15/23 05:23 Labs: Abnormal Lab Results - Last 24 Hours (Table) 11/14/23 11/14/23 11/14/23 Range/Units 04:04 05:52 14:41 WBC (3.8-10.6) k/uL RBC (4.30-5.90) m/uL Hgb (13.0-17.5) gm/dL Hct (39.0-53.0) % MCHC (31.0-37.0) g/dL Neutrophils # (1.3-7.7) k/uL Lymphocytes # (1.0-4.8) k/uL ABG pO2 (83-108) mmHg ABG HCO3 (21-25) mmol/L ABG Total CO2 (19-24) mmol/L ABG O2 Saturation (94-97) % Hemoglobin (13.0-17.5) gm/dL Glucose (74-99) mg/dL POC Glucose (mg/dL) (70-110) mg/dL Iron 6 L (65-175) UG/DL % Saturation 1.64 L (15.00-50.00) Urine Protein Trace H (Negative) Triple Phos Crystals Moderate H (None) /hpf Amorphous Sediment Moderate H (None) /hpf Urine Mucus Rare H (None) /hpf Crossmatch See Detail 11/14/23 11/14/23 11/14/23 Range/Units 14:50 17:17 18:13 WBC (3.8-10.6) k/uL RBC 2.60 L (4.30-5.90) m/uL Hgb 7.2 L (13.0-17.5) gm/dL Hct 22.5 L (39.0-53.0) % MCHC (31.0-37.0) g/dL Neutrophils # (1.3-7.7) k/uL Lymphocytes # (1.0-4.8) k/uL ABG pO2 110 H (83-108) mmHg ABG HCO3 26 H (21-25) mmol/L ABG Total CO2 27 H (19-24) mmol/L ABG O2 Saturation 99.0 H (94-97) % Hemoglobin 7.5 L (13.0-17.5) gm/dL Glucose (74-99) mg/dL POC Glucose (mg/dL) 148 H (70-110) mg/dL Iron (65-175) UG/DL % Saturation (15.00-50.00) Urine Protein (Negative) Triple Phos Crystals (None) /hpf Amorphous Sediment (None) /hpf Urine Mucus (None) /hpf Crossmatch 11/15/23 11/15/23 11/15/23 Range/Units 00:47 05:23 05:23 WBC 10.7 H (3.8-10.6) k/uL RBC 2.79 L (4.30-5.90) m/uL Hgb 7.5 L (13.0-17.5) gm/dL Hct 24.4 L (39.0-53.0) % MCHC 30.6 L (31.0-37.0) g/dL Neutrophils # 9.1 H (1.3-7.7) k/uL Lymphocytes # 0.9 L (1.0-4.8) k/uL ABG pO2 (83-108) mmHg ABG HCO3 (21-25) mmol/L ABG Total CO2 (19-24) mmol/L ABG O2 Saturation (94-97) % Hemoglobin (13.0-17.5) gm/dL Glucose 126 H (74-99) mg/dL POC Glucose (mg/dL) 124 H (70-110) mg/dL Iron (65-175) UG/DL % Saturation (15.00-50.00) Urine Protein (Negative) Triple Phos Crystals (None) /hpf Amorphous Sediment (None) /hpf Urine Mucus (None) /hpf Crossmatch 11/15/23 Range/Units 06:02 WBC (3.8-10.6) k/uL RBC (4.30-5.90) m/uL Hgb (13.0-17.5) gm/dL Hct (39.0-53.0) % MCHC (31.0-37.0) g/dL Neutrophils # (1.3-7.7) k/uL Lymphocytes # (1.0-4.8) k/uL ABG pO2 (83-108) mmHg ABG HCO3 (21-25) mmol/L ABG Total CO2 (19-24) mmol/L ABG O2 Saturation (94-97) % Hemoglobin (13.0-17.5) gm/dL Glucose (74-99) mg/dL POC Glucose (mg/dL) 132 H (70-110) mg/dL Iron (65-175) UG/DL % Saturation (15.00-50.00) Urine Protein (Negative) Triple Phos Crystals (None) /hpf Amorphous Sediment (None) /hpf Urine Mucus (None) /hpf Crossmatch Microbiology - Last 24 Hours (Table) 11/13/23 01:20 Gram Stain - Preliminary Sputum Sputum Culture - Preliminary
[2023-11-15] MEDS: IPRATROPIUM-ALBUTEROL 3 ML NEB INHALATION SCH (07:46)
--- NOTE | 2023-11-15 07:59 | P.PN ---
Subjective Progress Note Date: 11/15/23 Principal diagnosis: Aspiration 73-year-old male who is scheduled for outpatient upper endoscopy for complaints of chronic epigastric pain over the last 8 months duration and weight loss of 22 pounds over the last 4 months duration. Today he underwent upper endoscopy today and was found to have large amount of retained food in his stomach with evidence of large superficial gastric antral ulcer involving most of the antrum extending into the pylorus causing pyloric stenosis. Scope could not be advanced any further through the pylorus suggestive of gastric outlet obstructi on. Multiple biopsies were done from the gastric antral ulceration. During this process patient had aspirated and had a drop in his oxygen saturation and needed to be intubated per anesthesia. He was s admitted to the hospital and transferred to the to the ICU currently remains intubated with NG tube placed with about 200 cc of gastric output. 11/13/2023 Patient remains in the ICU sedated and intubated on mechanical ventilation. Family at the bedside. Had approximately 6-700 output of the NG tube since yesterday until this morning. Currently no output at this time. Chest x-ray reports perihilar increased density may reflect developing infiltrate. Patient has been afebrile. 11/14/2023 Patient seen and examined today as a follow-up. He remains in the ICU sedated and mechanical ventilation. Weaning trial yesterday was stopped as patient was not tolerating it well. Clear liquid through the NG tube was not trialed as patient was restless. Supposed to do another sedation holiday and weaning trial today. Patient is having minimal output from the NG tube. He has been afebrile . 11/15/2023 Patient is seen and examined today as a follow-up. He remains in the ICU. He was extubated yesterday evening, patient's daughter and at the bedside. He is somewhat confused and they state that trying to get out of bed and pull out his NG tube. Not much coming from the NG tube yesterday or through the night. Biopsies from EGD gastric ulcer positive for high-grade non-Hodgkin's diffuse large B-cell lymphoma, non-germinal center activated B-cell type. Results discussed with peter saxena and his family. Today's labs WBC 10.7 hemoglobin 7.5 platelet count 239,000 sodium 138 potassium 4.2 BUN 7 creatinine 2.0 magnesium 1.9 Objective - Vital Signs Vital signs: Vital Signs Temp 98.2 F 11/15/23 04:00 Pulse 75 11/15/23 06:00 Resp 25 H 11/15/23 06:00 BP 117/59 11/15/23 06:00 Pulse Ox 97 11/15/23 06:00 FiO2 40 11/14/23 19:04 Intake & Output 11/14/23 11/15/23 11/15/23 18:59 06:59 18:59 Intake Total 8094.921 6149 Output Total 985 685 Balance 1014.239 515 Weight 101 kg Intake: IV 1200 1200 Lactated Ringers 1,000 ml 1200 1200 @ 100 mls/hr IV .Q10H [facility] Rx#:[id number] Intake, IV Titration 514.239 Amount Dexmedetomidine/0.9% NaCl 47.485 (Pmx) 400 mcg In Empty Bag 1 bag @ 0.2 MCG/KG/HR 4.895 mls/hr IV .[id number] [facility] Rx#:[id number] Norepinephrine 4 mg In 114.779 Sodium Chloride 0.9% 250 ml @ 0.03 MCG/KG/MIN 10. 493 mls/hr IV .Q24H [facility] Rx#:[id number] Piperacillin-Tazobactam 3 100 .375 gm In Sodium Chloride 0.9% 100 ml @ 25 mls/hr IVPB Q8HR [facility] Rx# :[id number] propofoL 1,000 mg In 251.975 Empty Bag 1 bag @ 15 MCG/ KG/MIN 8.262 mls/hr IV . Q12H7M [facility] Rx#:[id number] Blood Product 285 Rc Pheresis As-3 Unit 285 [id number] Output: Gastric Drainage 250 Urine 735 685 Other: Voiding Method Indwelling Catheter Indwelling Catheter - Exam General appearance: The patient is alert, oriented to self and confused. Appears in no acute distress. HET: Head is normocephalic and atraumatic. NG tube in place. Neck: Supple without lymphadenopathy. Abdomen: Soft, nondistended. Extremities: Normal skin color and turgor. No pedal edema Skin: No rashes, no jaundice Neurological: Alert, oriented to self, confused. - Labs CBC & Chem 7: 11/15/23 05:23 11/15/23 05:23 Labs: Abnormal Lab Results - Last 24 Hours (Table) 11/14/23 11/14/23 11/14/23 Range/Units 04:04 05:52 14:41 WBC (3.8-10.6) k/uL RBC (4.30-5.90) m/uL Hgb (13.0-17.5) gm/dL Hct (39.0-53.0) % MCHC (31.0-37.0) g/dL Neutrophils # (1.3-7.7) k/uL Lymphocytes # (1.0-4.8) k/uL ABG pO2 (83-108) mmHg ABG HCO3 (21-25) mmol/L ABG Total CO2 (19-24) mmol/L ABG O2 Saturation (94-97) % Hemoglobin (13.0-17.5) gm/dL Glucose (74-99) mg/dL POC Glucose (mg/dL) (70-110) mg/dL Iron 6 L (65-175) UG/DL % Saturation 1.64 L (15.00-50.00) Urine Protein Trace H (Negative) Triple Phos Crystals Moderate H (None) /hpf Amorphous Sediment Moderate H (None) /hpf Urine Mucus Rare H (None) /hpf Crossmatch See Detail 11/14/23 11/14/23 11/14/23 Range/Units 14:50 17:17 18:13 WBC (3.8-10.6) k/uL RBC 2.60 L (4.30-5.90) m/uL Hgb 7.2 L (13.0-17.5) gm/dL Hct 22.5 L (39.0-53.0) % MCHC (31.0-37.0) g/dL Neutrophils # (1.3-7.7) k/uL Lymphocytes # (1.0-4.8) k/uL ABG pO2 110 H (83-108) mmHg ABG HCO3 26 H (21-25) mmol/L ABG Total CO2 27 H (19-24) mmol/L ABG O2 Saturation 99.0 H (94-97) % Hemoglobin 7.5 L (13.0-17.5) gm/dL Glucose (74-99) mg/dL POC Glucose (mg/dL) 148 H (70-110) mg/dL Iron (65-175) UG/DL % Saturation (15.00-50.00) Urine Protein (Negative) Triple Phos Crystals (None) /hpf Amorphous Sediment (None) /hpf Urine Mucus (None) /hpf Crossmatch 11/15/23 11/15/23 11/15/23 Range/Units 00:47 05:23 05:23 WBC 10.7 H (3.8-10.6) k/uL RBC 2.79 L (4.30-5.90) m/uL Hgb 7.5 L (13.0-17.5) gm/dL Hct 24.4 L (39.0-53.0) % MCHC 30.6 L (31.0-37.0) g/dL Neutrophils # 9.1 H (1.3-7.7) k/uL Lymphocytes # 0.9 L (1.0-4.8) k/uL ABG pO2 (83-108) mmHg ABG HCO3 (21-25) mmol/L ABG Total CO2 (19-24) mmol/L ABG O2 Saturation (94-97) % Hemoglobin (13.0-17.5) gm/dL Glucose 126 H (74-99) mg/dL POC Glucose (mg/dL) 124 H (70-110) mg/dL Iron (65-175) UG/DL % Saturation (15.00-50.00) Urine Protein (Negative) Triple Phos Crystals (None) /hpf Amorphous Sediment (None) /hpf Urine Mucus (None) /hpf Crossmatch 11/15/23 Range/Units 06:02 WBC (3.8-10.6) k/uL RBC (4.30-5.90) m/uL Hgb (13.0-17.5) gm/dL Hct (39.0-53.0) % MCHC (31.0-37.0) g/dL Neutrophils # (1.3-7.7) k/uL Lymphocytes # (1.0-4.8) k/uL ABG pO2 (83-108) mmHg ABG HCO3 (21-25) mmol/L ABG Total CO2 (19-24) mmol/L ABG O2 Saturation (94-97) % Hemoglobin (13.0-17.5) gm/dL Glucose (74-99) mg/dL POC Glucose (mg/dL) 132 H (70-110) mg/dL Iron (65-175) UG/DL % Saturation (15.00-50.00) Urine Protein (Negative) Triple Phos Crystals (None) /hpf Amorphous Sediment (None) /hpf Urine Mucus (None) /hpf Crossmatch Microbiology - Last 24 Hours (Table) 11/13/23 01:20 Gram Stain - Preliminary Sputum Sputum Culture - Preliminary Assessment and Plan (1) Gastric outlet obstruction Narrative/Plan: 73-year-old scheduled for outpatient procedure found to have significant amount of retained solid and liquid food in the stomach and also noted of large antral ulcer. This is a patient that was being worked up for chronic epigastric pain and unintentional weight loss. During procedure patient he had aspirated subsequently needing intubation and was admitted to the ICU for further evaluation. NG tube is placed with 200 mL of gastric output including food and liquid. Will continue to follow and await biopsy report report Current Visit: Yes Status: Acute Code(s): K31.1 - ADULT HYPERTROPHIC PYLORIC STENOSIS SNOMED Code(s): 166692548 (2) Aspiration into airway Narrative/Plan: Acute hypoxic respiratory failure requiring intubation and mechanical ventilation secondary to above Current Visit: Yes Status: Acute Code(s): T17.908A - UNSP FB IN RESP TRACT, PART UNSP CAUSING OTH INJURY, INIT SNOMED Code(s): 132379741 (3) Gastric ulcer Narrative/Plan: Biopsy positive for high-grade non-Hodgkin's diffuse large B cell lymphoma Will consult general surgery for J-tube placement for nutrition and oncology Current Visit: Yes Status: Acute Code(s): K25.9 - GASTRIC ULCER, UNSP ACUTE OR CHRONIC, W/O HEMOR OR PERF SNOMED Code(s): 850256297 (4) Epigastric pain Current Visit: Yes Status: Acute Code(s): R10.13 - EPIGASTRIC PAIN SNOMED Code(s): 56098003 (5) Unintentional weight loss Current Visit: Yes Status: Acute Code(s): R63.4 - ABNORMAL WEIGHT LOSS SNOMED Code(s): 045445919 Plan: 1. Continue symptomatic and supportive care 2. Continue NG tube to suction 3. Continue with ICU management 4. Keep n.p.o. except for ice chips 5. Protonix 40 mg daily for GI prophylaxis 6. Consult general surgery for J-tube placement 7. Consult oncology for new diagnosis of non-Hodgkin's diffuse large B-cell lymphoma 8. Rest of medical management per primary medical team Thank you for this consultation, we will sign off at this time. Dr. Sahara Cheng I agree with the dictator's note, documented as a scribe by Leslee Estes.
[2023-11-15] MEDS: MAGNESIUM SULFATE-D5W PMX 1 GM in DEXTROSE/WATER 1 100ML.BAG IVPB ONE (09:13)
--- NOTE | 2023-11-15 10:21 | P.PN ---
Subjective Patient is seen in follow-up for acute kidney injury. Renal function improved. Extubated. Nonoliguric. Off vasopressors. Family present at bedside. Vital signs are stable. General: No acute distress. HEENT: Head exam is unremarkable. On nasal cannula. LUNGS: No audible rhonchi or wheezes. HEART: Rate and Rhythm are regular. ABDOMEN: Nontender. EXTREMITITES: No edema. Objective - Vital Signs Vital signs: Vital Signs Temp 98.5 F 11/15/23 08:00 Pulse 81 11/15/23 09:30 Resp 20 11/15/23 09:30 BP 125/69 11/15/23 09:30 Pulse Ox 96 11/15/23 09:30 FiO2 40 11/14/23 19:04 Intake & Output 11/14/23 11/15/23 11/15/23 18:59 06:59 18:59 Intake Total 9657.426 3324 329.171 Output Total 985 685 500 Balance 1014.239 515 -170.829 Weight 101 kg Intake: IV 1200 1200 100 Lactated Ringers 1,000 ml 1200 1200 100 @ 100 mls/hr IV .Q10H [facility] Rx#:[id number] Intake, IV Titration 514.239 229.171 Amount Amiodarone 450 mg In 229.171 Dextrose 5% in Water 250 ml @ 0.5 MG/MIN 16.667 mls/hr IV .Q15H [facility] Rx#: [id number] Dexmedetomidine/0.9% NaCl 47.485 (Pmx) 400 mcg In Empty Bag 1 bag @ 0.2 MCG/KG/HR 4.895 mls/hr IV .[id number] [facility] Rx#:[id number] Norepinephrine 4 mg In 114.779 Sodium Chloride 0.9% 250 ml @ 0.03 MCG/KG/MIN 10. 493 mls/hr IV .Q24H [facility] Rx#:[id number] Piperacillin-Tazobactam 3 100 .375 gm In Sodium Chloride 0.9% 100 ml @ 25 mls/hr IVPB Q8HR [facility] Rx# :[id number] propofoL 1,000 mg In 251.975 Empty Bag 1 bag @ 15 MCG/ KG/MIN 8.262 mls/hr IV . Q12H7M [facility] Rx#:[id number] Blood Product 285 Rc Pheresis As-3 Unit 285 [id number] Output: Gastric Drainage 250 400 Urine 735 685 100 Other: Voiding Method Indwelling Catheter Indwelling Catheter - Labs CBC & Chem 7: 11/15/23 05:23 11/15/23 05:23 Labs: Abnormal Lab Results - Last 24 Hours (Table) 11/14/23 11/14/23 11/14/23 Range/Units 04:04 05:52 14:41 WBC (3.8-10.6) k/uL RBC (4.30-5.90) m/uL Hgb (13.0-17.5) gm/dL Hct (39.0-53.0) % MCHC (31.0-37.0) g/dL Neutrophils # (1.3-7.7) k/uL Lymphocytes # (1.0-4.8) k/uL ABG pO2 (83-108) mmHg ABG HCO3 (21-25) mmol/L ABG Total CO2 (19-24) mmol/L ABG O2 Saturation (94-97) % Hemoglobin (13.0-17.5) gm/dL Glucose (74-99) mg/dL POC Glucose (mg/dL) (70-110) mg/dL Iron 6 L (65-175) UG/DL % Saturation 1.64 L (15.00-50.00) Urine Protein Trace H (Negative) Triple Phos Crystals Moderate H (None) /hpf Amorphous Sediment Moderate H (None) /hpf Urine Mucus Rare H (None) /hpf Crossmatch See Detail 11/14/23 11/14/23 11/14/23 Range/Units 14:50 17:17 18:13 WBC (3.8-10.6) k/uL RBC 2.60 L (4.30-5.90) m/uL Hgb 7.2 L (13.0-17.5) gm/dL Hct 22.5 L (39.0-53.0) % MCHC (31.0-37.0) g/dL Neutrophils # (1.3-7.7) k/uL Lymphocytes # (1.0-4.8) k/uL ABG pO2 110 H (83-108) mmHg ABG HCO3 26 H (21-25) mmol/L ABG Total CO2 27 H (19-24) mmol/L ABG O2 Saturation 99.0 H (94-97) % Hemoglobin 7.5 L (13.0-17.5) gm/dL Glucose (74-99) mg/dL POC Glucose (mg/dL) 148 H (70-110) mg/dL Iron (65-175) UG/DL % Saturation (15.00-50.00) Urine Protein (Negative) Triple Phos Crystals (None) /hpf Amorphous Sediment (None) /hpf Urine Mucus (None) /hpf Crossmatch 11/15/23 11/15/23 11/15/23 Range/Units 00:47 05:23 05:23 WBC 10.7 H (3.8-10.6) k/uL RBC 2.79 L (4.30-5.90) m/uL Hgb 7.5 L (13.0-17.5) gm/dL Hct 24.4 L (39.0-53.0) % MCHC 30.6 L (31.0-37.0) g/dL Neutrophils # 9.1 H (1.3-7.7) k/uL Lymphocytes # 0.9 L (1.0-4.8) k/uL ABG pO2 (83-108) mmHg ABG HCO3 (21-25) mmol/L ABG Total CO2 (19-24) mmol/L ABG O2 Saturation (94-97) % Hemoglobin (13.0-17.5) gm/dL Glucose 126 H (74-99) mg/dL POC Glucose (mg/dL) 124 H (70-110) mg/dL Iron (65-175) UG/DL % Saturation (15.00-50.00) Urine Protein (Negative) Triple Phos Crystals (None) /hpf Amorphous Sediment (None) /hpf Urine Mucus (None) /hpf Crossmatch 11/15/23 Range/Units 06:02 WBC (3.8-10.6) k/uL RBC (4.30-5.90) m/uL Hgb (13.0-17.5) gm/dL Hct (39.0-53.0) % MCHC (31.0-37.0) g/dL Neutrophils # (1.3-7.7) k/uL Lymphocytes # (1.0-4.8) k/uL ABG pO2 (83-108) mmHg ABG HCO3 (21-25) mmol/L ABG Total CO2 (19-24) mmol/L ABG O2 Saturation (94-97) % Hemoglobin (13.0-17.5) gm/dL Glucose (74-99) mg/dL POC Glucose (mg/dL) 132 H (70-110) mg/dL Iron (65-175) UG/DL % Saturation (15.00-50.00) Urine Protein (Negative) Triple Phos Crystals (None) /hpf Amorphous Sediment (None) /hpf Urine Mucus (None) /hpf Crossmatch Microbiology - Last 24 Hours (Table) 11/13/23 01:20 Gram Stain - Final Sputum Sputum Culture - Final Assessment and Plan Plan: Assessment: 1. Acute kidney injury secondary to vasomotor nephropathy secondary to hypotension. Creatinine 0.86 on admission and peaked at 1.57 this admission. Improved to 0.96 today. UA fairly benign. No hydronephrosis noted on kidney ultrasound. 2. Acute blood loss anemia status post blood transfusion. Hemoglobin 7.5 today. 3. Gastric antral ulceration with pyloric stenosis. 4. Atrial fibrillation. On amiodarone drip. Cardiology following. Plan: Maintain IV fluids. Avoid nephrotoxins. Continue to monitor renal function and urine output. Preserved EF noted on echocardiogram.
[2023-11-15 11:26] LABS: Glucose,Whole Blood 135 mg/dL (70-110)
--- NOTE | 2023-11-15 12:31 | P.PN ---
Subjective Progress Note Date: 11/15/23 Principal diagnosis: Acute hypoxic respiratory failure requiring intubation mechanical ventilation secondary to aspiration. This is a 73-year-old white male with history of chronic abdominal pain for the last 8 months has been treated with Protonix 40 mg daily for the last 3 months with no improvement. Patient had a 22 pound weight loss in the last [address] of the abdomen and pelvis 3 weeks ago showed thickening of the antral wall with pathological adenopathy posterior to the stomach suspicious of neoplasm. Today the patient underwent elective upper endoscopy to evaluate further, patient received IV sedation by anesthesia endoscope was inserted into the mouth, esop hagus was intubated without any difficulty there was evidence of large amount of liquid and solid food noted in the stomach suggestive of gastric outlet obstruction. Scope could not be advanced through the pylorus, however in the prepyloric area there was a large superficial ulceration identified with multiple biopsies were done from this area. The body cardia and fundus could not adequately visualize because of large amount of retained food in the stomach. Scope was withdrawn back to the stomach and upon careful examination the mucosa of the antrum body and cardia as well as the fundus appeared normal. Procedure was being performed and biopsies were done patient threw up and subsequently became hypoxic there was clearly evidence of witnessed aspiration anesthesia intubated the patient, procedure was terminated, and the patient was transferred to the ICU, this consult was initiated. Patient is now on assist- control rate of 20 tidal volume 500 FiO2 70% PEEP of 10 ABG is pending, earlier ABG showed profound hypoxia patient is on propofol at 50 mcg/kg/min, next ABG is pending. Chest x-ray showed chronic changes without evidence of acute pulmonary disease. Patient was seen and examined today on 11/13/2023, remains in the ICU, intubated mechanically ventilated, on assist-control rate of 20 tidal volume 500 FiO2 50% and PEEP of 10 ABG showed a pO2 of 143 pCO2 47 pH of 7.28 hence PEEP was cut down to 6, and increased rate to 22. Patient is still requiring IV fluid at 100 cc/h/LR. Requiring norepinephrine at 0.08 mcg/kg/min he is also on propofol at 50 mg/kg/min antibiotics arce patient is receiving Zosyn. Chest x-ray is showing worsening infiltrates specially in the left lung. This could be related to aspiration pneumonia. Patient had witnessed aspiration during end oscopy/upper endoscopy.WBC count is 14 hemoglobin 7.6 basic metabolic profile is normal BUN is 26 creatinine 1.57 obviously the patient sustained some acute kidney injury baseline creatinine 0.86 patient had received fluids over the last 24 hours, remains on fluids at 100 cc/h Patient with seen and examined today on 11/14/2023, patient remains in the ICU, intubated and mechanically ventilated. Failed weaning trial yesterday and he became quite agitated and desaturated once he went off propofol. Had to be placed back on assist-control mode of mechanical ventilation and sedation. Today the patient is on assist-control rate of 22 tidal volume 500 FiO2 50% PEEP of 6. ABG showed a pO2 of 123 pCO2 51 pH of 7.32, and I cut down his FiO2 down to 45%, patient is receiving a unit of packed RBCs for hemoglobin of 6.9 today. Patient had an episode of A-fib RVR at 3 AM in the morning, seen by cardiology, and recommended patient goes on amiodarone. Still requiring norepinephrine at 0.05 mg/kg/min, he is on LR at 100 cc/h propofol at 50 mg/kg/min. Remains empirically on Zosyn for aspiration pneumonia. My plan today is transitioning the patient to Precedex, hopefully discontinue propofol, and at least give the patient a decent weaning trial or at least check weaning parameters before we proceed to weaning trial. Chest x-ray continues to show evidence of pneumonia mostly in the left lung and left lower lobe more specifically. Some pulmonary vascular congestion is noted with interstitial edema, small pleural effusion is also noted/left side. WBC count today is 12 hemoglobin 6.9 basic metabolic profile is normal bicarb is 25, BUN is 25 creatinine is improving down to 1.21 from 1.57 yesterday Patient was evaluated today on 11/15/2023, patient remains in the ICU, he was extubated yesterday, and his extubation was relatively uneventful. However the patient continues to have nasogastric tube in place, his pathology report came back showing non-Hodgkin's lymphoma, patient has gastric outlet obstruction, and the recommendation by GI is to consult surgery for a jejunostomy tube which is appropriate. Patient will be seen today by oncology and he will be seen by general surgery. In the meantime patient is comfortable, he is on 5 L nasal cannula he has LR running at 100 cc/h, he is remains on Zosyn for aspiration pneumonia remains on amiodarone which was started by cardiology for atrial fibrillation with RVR, presently in sinus rhythm. Cannot switch him to oral because of the fact that remains n.p.o., patient remains on TPN. WBC count is 10.7 hemoglobin 7.5 electrolytes are normal renal profile is normal, creatinine normalized to 0.96 Objective - Vital Signs Vital signs: Vital Signs Temp 98.5 F 11/15/23 08:00 Pulse 74 11/15/23 11:46 Resp 18 11/15/23 10:30 BP 112/60 11/15/23 10:30 Pulse Ox 96 11/15/23 10:30 FiO2 40 11/14/23 19:04 Intake & Output 11/14/23 11/15/23 11/15/23 18:59 06:59 18:59 Intake Total 8571.074 9769 829.171 Output Total 985 685 700 Balance 1014.239 515 129.171 Weight 101 kg Intake: IV 1200 1200 400 Lactated Ringers 1,000 ml 1200 1200 400 @ 100 mls/hr IV .Q10H [facility] Rx#:[id number] Intake, IV Titration 514.239 429.171 Amount Amiodarone 450 mg In 229.171 Dextrose 5% in Water 250 ml @ 0.5 MG/MIN 16.667 mls/hr IV .Q15H [facility] Rx#: [id number] Dexmedetomidine/0.9% NaCl 47.485 (Pmx) 400 mcg In Empty Bag 1 bag @ 0.2 MCG/KG/HR 4.895 mls/hr IV .[id number] [facility] Rx#:[id number] Magnesium Sulfate-D5w Pmx 100 1 gm In Dextrose/Water 1 100ml.bag @ 100 mls/hr IVPB ONCE ONE Rx#: [id number] Norepinephrine 4 mg In 114.779 Sodium Chloride 0.9% 250 ml @ 0.03 MCG/KG/MIN 10. 493 mls/hr IV .Q24H [facility] Rx#:[id number] Piperacillin-Tazobactam 3 100 100 .375 gm In Sodium Chloride 0.9% 100 ml @ 25 mls/hr IVPB Q8HR [facility] Rx# :[id number] propofoL 1,000 mg In 251.975 Empty Bag 1 bag @ 15 MCG/ KG/MIN 8.262 mls/hr IV . Q12H7M [facility] Rx#:[id number] Blood Product 285 Rc Pheresis As-3 Unit 285 [id number] Output: Gastric Drainage 250 400 Urine 735 685 300 Other: Voiding Method Indwelling Catheter Indwelling Catheter Indwelling Catheter - Exam General: Revealed 73-year-old white male on 5 L nasal cannula, not in any distress Skin: Skin is warm and dry and no rashes or lesions are noted. Eye: Pupils are equal, round and reactive to light, extra-ocular movements are intact; there is normal conjunctiva bilaterally. Ears, nose, mouth and throat: There are moist mucous membranes and no oral lesions. Neck: The neck is supple, there is no tenderness or JVD. Nasogastric tube remains in place Cardiovascular: There is a regular rate and rhythm. No murmur, rub or gallop is appreciated. Respiratory: Mild crackles at the bases specially at the left base Gastrointestinal: Soft, non-distended, non-tender abdomen without masses or organomegaly noted. There is no rebound or guarding present. Bowel sounds are unremarkable. Musculoskeletal: No deformities and no limitation range of motion Neurological: Alert and oriented x 3 no gross focal neurologic deficit Psychiatric: Normal mood normal affect and normal mental status examination - Labs CBC & Chem 7: 11/15/23 05:23 11/15/23 05:23 Labs: Abnormal Lab Results - Last 24 Hours (Table) 11/14/23 11/14/23 11/14/23 Range/Units 14:41 14:50 17:17 WBC (3.8-10.6) k/uL RBC 2.60 L (4.30-5.90) m/uL Hgb 7.2 L (13.0-17.5) gm/dL Hct 22.5 L (39.0-53.0) % MCHC (31.0-37.0) g/dL Neutrophils # (1.3-7.7) k/uL Lymphocytes # (1.0-4.8) k/uL ABG pO2 (83-108) mmHg ABG HCO3 (21-25) mmol/L ABG Total CO2 (19-24) mmol/L ABG O2 Saturation (94-97) % Hemoglobin (13.0-17.5) gm/dL Glucose (74-99) mg/dL POC Glucose (mg/dL) 148 H (70-110) mg/dL Urine Protein Trace H (Negative) Triple Phos Crystals Moderate H (None) /hpf Amorphous Sediment Moderate H (None) /hpf Urine Mucus Rare H (None) /hpf 11/14/23 11/15/23 11/15/23 Range/Units 18:13 00:47 05:23 WBC 10.7 H (3.8-10.6) k/uL RBC 2.79 L (4.30-5.90) m/uL Hgb 7.5 L (13.0-17.5) gm/dL Hct 24.4 L (39.0-53.0) % MCHC 30.6 L (31.0-37.0) g/dL Neutrophils # 9.1 H (1.3-7.7) k/uL Lymphocytes # 0.9 L (1.0-4.8) k/uL ABG pO2 110 H (83-108) mmHg ABG HCO3 26 H (21-25) mmol/L ABG Total CO2 27 H (19-24) mmol/L ABG O2 Saturation 99.0 H (94-97) % Hemoglobin 7.5 L (13.0-17.5) gm/dL Glucose (74-99) mg/dL POC Glucose (mg/dL) 124 H (70-110) mg/dL Urine Protein (Negative) Triple Phos Crystals (None) /hpf Amorphous Sediment (None) /hpf Urine Mucus (None) /hpf 11/15/23 11/15/23 11/15/23 Range/Units 05:23 06:02 11:24 WBC (3.8-10.6) k/uL RBC (4.30-5.90) m/uL Hgb (13.0-17.5) gm/dL Hct (39.0-53.0) % MCHC (31.0-37.0) g/dL Neutrophils # (1.3-7.7) k/uL Lymphocytes # (1.0-4.8) k/uL ABG pO2 (83-108) mmHg ABG HCO3 (21-25) mmol/L ABG Total CO2 (19-24) mmol/L ABG O2 Saturation (94-97) % Hemoglobin (13.0-17.5) gm/dL Glucose 126 H (74-99) mg/dL POC Glucose (mg/dL) 132 H 135 H (70-110) mg/dL Urine Protein (Negative) Triple Phos Crystals (None) /hpf Amorphous Sediment (None) /hpf Urine Mucus (None) /hpf Microbiology - Last 24 Hours (Table) 11/13/23 01:20 Gram Stain - Final Sputum Sputum Culture - Final Assessment and Plan Assessment: Impression: Acute hypoxic respiratory failure requiring intubation mechanical ventilation secondary to aspiration. Patient was extubated on 11/14/2023 and tolerated the extubation well. Acute aspiration pneumonia Acute aspiration during upper endoscopy most likely secondary to gastric outlet obstruction secondary to non-Hodgkin's lymphoma based on the pathology from stomach biopsies Chronic abdominal pain, secondary to lymphoma Unexplained weight loss most likely secondary non-Hodgkin's lymphoma involving the stomach Paroxysmal atrial fibrillation, remains on amiodarone Recommendation: Family has been updated on the pathology from his stomach biopsies Will consult general surgery for jejunostomy tube and feeding Will continue to monitor in the ICU for today only until he is seen by different consultants, and decision made on his jejunostomy which will likely be done on this admission hopefully soon Continue nasogastric tube to suction Continue TPN Patient to be seen by oncology on consultation Continue antibiotics in the form of Zosyn for aspiration pneumonia, chest x-ray is showing slight improvement in his aspiration pneumonia GI and DVT prophylaxis Will continue to follow, discussed his condition with him and with his and daughter at bedside Time with Patient: Less than 30
[2023-11-15] MEDS: SODIUM FERRIC GLUCONAT-SUCROSE 125 MG in SODIUM CHLORIDE 0.9% 100 ML IVPB SCH (14:45)
--- NOTE | 2023-11-15 16:31 | P.PN ---
Subjective Progress Note Date: 11/15/23 patient seen and evaluated at bedside. No complaints per family or nursing. Objective - Vital Signs Vital signs: Vital Signs Temp 98.5 F 11/15/23 16:00 Pulse 69 11/15/23 16:00 Resp 16 11/15/23 16:00 BP 116/65 11/15/23 16:00 Pulse Ox 99 11/15/23 16:00 FiO2 40 11/14/23 19:04 Intake & Output 11/14/23 11/15/23 11/15/23 18:59 06:59 18:59 Intake Total 5573.955 5822 1529.171 Output Total 226 750 1865 Balance 1014.239 515 504.171 Weight 101 kg 101 kg Intake: IV 1200 1200 1000 Lactated Ringers 1,000 ml 1200 1200 1000 @ 100 mls/hr IV .Q10H [facility] Rx#:[id number] Intake, IV Titration 514.239 529.171 Amount Amiodarone 450 mg In 229.171 Dextrose 5% in Water 250 ml @ 0.5 MG/MIN 16.667 mls/hr IV .Q15H [facility] Rx#: [id number] Dexmedetomidine/0.9% NaCl 47.485 (Pmx) 400 mcg In Empty Bag 1 bag @ 0.2 MCG/KG/HR 4.895 mls/hr IV .[id number] [facility] Rx#:[id number] Magnesium Sulfate-D5w Pmx 100 1 gm In Dextrose/Water 1 100ml.bag @ 100 mls/hr IVPB ONCE ONE Rx#: [id number] Norepinephrine 4 mg In 114.779 Sodium Chloride 0.9% 250 ml @ 0.03 MCG/KG/MIN 10. 493 mls/hr IV .Q24H [facility] Rx#:[id number] Piperacillin-Tazobactam 3 100 100 .375 gm In Sodium Chloride 0.9% 100 ml @ 25 mls/hr IVPB Q8HR [facility] Rx# :[id number] Sodium Ferric Gluconat- 100 Sucrose 125 mg In Sodium Chloride 0.9% 100 ml @ 100 mls/hr IVPB DAILY [facility] Rx#:[id number] propofoL 1,000 mg In 251.975 Empty Bag 1 bag @ 15 MCG/ KG/MIN 8.262 mls/hr IV . Q12H7M [facility] Rx#:[id number] Blood Product 285 Rc Pheresis As-3 Unit 285 [id number] Output: Gastric Drainage 250 400 Urine 735 685 625 Other: Voiding Method Indwelling Catheter Indwelling Catheter Indwelling Catheter - Exam gen: nad cv: rrr pul: non labored breathing abd: soft, non tender to palpation, no guarding or rebound tenderness - Labs CBC & Chem 7: 11/15/23 05:23 11/15/23 05:23 Labs: Abnormal Lab Results - Last 24 Hours (Table) 11/14/23 11/14/23 11/15/23 Range/Units 17:17 18:13 00:47 WBC (3.8-10.6) k/uL RBC (4.30-5.90) m/uL Hgb (13.0-17.5) gm/dL Hct (39.0-53.0) % MCHC (31.0-37.0) g/dL Neutrophils # (1.3-7.7) k/uL Lymphocytes # (1.0-4.8) k/uL ABG pO2 110 H (83-108) mmHg ABG HCO3 26 H (21-25) mmol/L ABG Total CO2 27 H (19-24) mmol/L ABG O2 Saturation 99.0 H (94-97) % Hemoglobin 7.5 L (13.0-17.5) gm/dL Glucose (74-99) mg/dL POC Glucose (mg/dL) 148 H 124 H (70-110) mg/dL 11/15/23 11/15/23 11/15/23 Range/Units 05:23 05:23 06:02 WBC 10.7 H (3.8-10.6) k/uL RBC 2.79 L (4.30-5.90) m/uL Hgb 7.5 L (13.0-17.5) gm/dL Hct 24.4 L (39.0-53.0) % MCHC 30.6 L (31.0-37.0) g/dL Neutrophils # 9.1 H (1.3-7.7) k/uL Lymphocytes # 0.9 L (1.0-4.8) k/uL ABG pO2 (83-108) mmHg ABG HCO3 (21-25) mmol/L ABG Total CO2 (19-24) mmol/L ABG O2 Saturation (94-97) % Hemoglobin (13.0-17.5) gm/dL Glucose 126 H (74-99) mg/dL POC Glucose (mg/dL) 132 H (70-110) mg/dL 11/15/23 Range/Units 11:24 WBC (3.8-10.6) k/uL RBC (4.30-5.90) m/uL Hgb (13.0-17.5) gm/dL Hct (39.0-53.0) % MCHC (31.0-37.0) g/dL Neutrophils # (1.3-7.7) k/uL Lymphocytes # (1.0-4.8) k/uL ABG pO2 (83-108) mmHg ABG HCO3 (21-25) mmol/L ABG Total CO2 (19-24) mmol/L ABG O2 Saturation (94-97) % Hemoglobin (13.0-17.5) gm/dL Glucose (74-99) mg/dL POC Glucose (mg/dL) 135 H (70-110) mg/dL Microbiology - Last 24 Hours (Table) 11/13/23 01:20 Gram Stain - Final Sputum Sputum Culture - Final Assessment and Plan Assessment: 73-year-old male with suspected lymphoma J-tube placement tomorrow Mediport placement tomorr Had an extensive discussion with family daughter//granddaughter present all questions were answered. Time with Patient: Greater than 30
--- NOTE | 2023-11-15 16:59 | P.PN ---
Progress Note - Text Progress Note Date: 11/15/23 Chief Complaint: Aspirated This is a 73-year-old patient, follows with Dr. Patricia Deal. Patient was seen this morning in the ICU. Patient's and daughter at the bedside. History obtained predominantly by the . Patient been having trouble with his stomach symptoms for close to 8 months. Patient underwent EGD by Dr. Sahara Cheng yesterday. Patient was found to have ulcerated around the antrum and obstruction to the pylorus. A lot of retained food was found. Patient aspirated. Had to be intubated and brought to the ICU. On a Levophed drip. FiO2 50 and a PEEP of 6. Patient had been losing weight lost about 25 pounds. Previously has a history of mitral valve prolapse. November 13: ICU. Patient remains on Precedex drip and propofol drip. Did not do well attempted extubation yesterday. Patient been off Levophed. NG tube to suction. Spoke to patient's and son at the bedside. Biopsy results awaited. Hemoglobin dropped to 6.9 this morning. Get a unit of blood. November 14: ICU. Up in a chair. Extubated yesterday. NG tube to suction. at the bedside. 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 Oncology was consulted. They have ordered a port. Results discussed with Dr. Sahara Cheng. General surgery was consulted for J-tube placement. Discussed with at the bedside. Patient getting IV fluids, IV Zosyn,. Patient has been on IV amiodarone for A-fib-back in sinus rhythm. Multiple PACs. Did receive unit of blood yesterday. Also IV ferric gluconate. Active Medications Albuterol/Ipratropium (Ipratropium-Albuterol 3 Ml Neb) 3 ml INHALATION RT-QID [facility] Last Admin: 11/15/23 15:25 Dose: Not Given Chlorhexidine Gluconate (Chlorhexidine Gluconate 15 Ml Cup) 15 ml MUCOUS MEM BID [facility] Last Admin: 11/15/23 09:13 Dose: 15 ml Hydromorphone HCl (Hydromorphone 0.5 Mg/0.5 Ml Syringe) 0.5 mg IVP Q3HR PRN PRN Reason: Pain Last Admin: 11/14/23 23:54 Dose: 0.5 mg Lactated Ringer's (Lactated Ringers) 1,000 mls @ 100 mls/hr IV .Q10H [facility] Stop: 12/12/23 05:39 Last Admin: 11/15/23 16:27 Dose: 100 mls/hr Piperacillin Sod/Tazobactam (Sod 3.375 gm/ Sodium Chloride) 100 mls @ 25 mls/hr IVPB Q8HR [facility]; Protocol Last Admin: 11/15/23 16:13 Dose: 25 mls/hr Amiodarone HCl 450 mg/ (Dextrose/Water) 250 mls @ 16.667 mls/hr IV .Q15H [facility]; Protocol Ferric Sodium Gluconate 125 mg (/ Sodium Chloride) 110 mls @ 100 mls/hr IVPB DAILY [facility] Stop: 11/18/23 10:05 Last Admin: 11/15/23 14:45 Dose: 100 mls/hr Lidocaine HCl (Lidocaine 1% (10mg/Ml) For Iv Start) 0.1 ml INTRADERMA PER PROTOCOL PRN PRN Reason: IV Start Stop: 12/12/23 05:39 Miscellaneous Information (Magnesium Replacement Protocol 1 Each Misc) 1 each MISCELLANE DAILY PRN; Protocol PRN Reason: Per Protocol Naloxone HCl (Naloxone 0.4 Mg/Ml 1 Ml Vial) 0.2 mg IV Q2M PRN PRN Reason: Opioid Reversal Pantoprazole Sodium (Pantoprazole 40 Mg/10 Ml Vial) 40 mg IVP BID [facility] Last Admin: 11/15/23 09:13 Dose: 40 mg Past medical history to include: GERD Social history: . No smoking. Physical examination: VITAL SIGNS: 98.5, 69, 16, 116 x 65, 99% on 5 L GENERAL: Up in a chair, tired EYES: Pupils equal. Conjunctiva edouard l. HEENT: External appearance of nose and ears normal, oral cavity grossly normal. NG tube NECK: JVD unable to assess; masses not palpable. HEART: First and second heart sounds are normal; no edema. LUNGS: Respiratory rate increased decreased breath sounds. ABDOMEN: Soft, nontender, liver spleen not palpable, no masses palpable. PSYCH: Awake following commands. INVESTIGATIONS, reviewed in the clinical context: 2D echo: EF 55 to 60%. November 14: White count 10.7 hemoglobin 7.5 platelets 239 potassium 4.2 creatinine 0.96 Kidneys bladder: Unremarkable November 13: White count 12 hemoglobin 6.9 platelets 276 potassium 4.4 creatinine 1.21 magnesium 1.8 iron 6 TIBC 365% saturation 1.64 transferrin 261 ferritin 34.6 B12 569 folate 4.4 November 12: White count 14 hemoglobin 7.6 platelets 333 sodium 136 BUN 26 creatinine 1.57 November 11: Creatinine 0.86 EGD: Large amount of retained solid liquid food noted in the stomach. Large superficial gastric antral ulceration involving most of the antrum extending into the pylorus causing pyloric stenosis. Biopsies were obtained. Chest x-ray film personally reviewed by me-scattered infiltrates Assessment plan: -Aspiration pneumonitis bilateral from retained gastric contents mostly food and liquids, causing acute hypoxic respiratory failure: IV Zosyn -Acute kidney injury. Possible ATN from hypotensive shock: Corrected Strict I's and O's. Follow renal function. Renal ultrasound unremarkable Seen by nephrology. IV fluids. I's and O's. -Nutrition General surgery consulted for J-tube placement -Paroxysmal atrial fibrillation now back in sinus rhythm IV amiodarone -Acute hypoxic respiratory failure from aspiration pneumonia, status post ventilator assisted: Slow to respond Currently on 5 L nasal cannula -Normocytic anemia likely o secondary underlying lymphoma Iron deficiency anemia Received a unit of blood. IV iron. -Acute blood loss anemia, could be oozing from biopsy site in the stomach Received blood -GERD PPI -Large superficial gastric antral ulceration involving the gastric antrum extending into the pylorus with gastric outlet obstruction. Secondary to non- Hodgkin's lymphoma aggressive large B cell type Oncology consulted. Port ordered -Full code Discussed with and granddaughter at the bedside. Discussed with Dr. Sahara Cheng, general surgery, nurse. Past Medical History Past Medical History: GERD/Reflux History of Any Multi-Drug Resistant Organisms: None Reported Past Surgical History: Heart Catheterization Additional Past Surgical History / Comment(s): colonsocopy,spinal injection, Past Anesthesia/Blood Transfusion Reactions: No Reported Reaction Past Psychological History: No Psychological Hx Reported Smoking Status: Never smoker Past Alcohol Use History: None Reported Past Drug Use History: None Reported
[2023-11-15 18:38] LABS: Glucose,Whole Blood 122 mg/dL (70-110)
[2023-11-15] MEDS: AMIODARONE 450 MG in DEXTROSE 5% IN WATER 250 ML IV SCH (20:41)
--- NOTE | 2023-11-15 20:44 | P.CONS ---
History of Present Illness - Reason for Consult Consult date: 11/15/23 lymphoma Requesting physician: Leslee Rico - Chief Complaint abd pain - History of Present Illness Patient is a 73-year-old male who was scheduled for outpatient upper EGD with Dr. Cheng, for complaints of chronic epigastric pain over the last 8 months with a 20 lb weight loss over the last 4 months. He underwent EGD on On 11/12/2023 revealing revealing a large superficial gastric antral ulceration involving most of the antrum. Multiple biopsies obtained. The antral ulceration was extending to the pylorus causing pyloric stenosis and gastric outlet obstruction. Biopsy was positive for high-grade non-Hodgkin's diffuse large B-cell lymphoma, non- germinal center activated B-cell type. Patient was seen in ICU at today's visit. He was extubated yesterday. Patient has NG tube placed, reporting he is feeling weak, patient is somewhat lethargic. Plan is for J-tube placement. Labs reviewed, WBC 10.7, hemoglobin 7.5, MCV 87.3, platelets 239,000. Anemia labs revealed iron saturation 1.6%, ferritin 34.6, vitamin B12 569, folate 4.4. S/p 1 unit PRBCs. Patient is also being treated for aspiration pneumonia and is currently on IV Zosyn. Review of Systems 10 point ROS is negative except as stated in the HPI Past Medical History Past Medical History: GERD/Reflux History of Any Multi-Drug Resistant Organisms: None Reported Past Surgical History: Heart Catheterization Additional Past Surgical History / Comment(s): colonsocopy,spinal injection, Past Anesthesia/Blood Transfusion Reactions: No Reported Reaction Past Psychological History: No Psychological Hx Reported Smoking Status: Never smoker Past Alcohol Use History: None Reported Past Drug Use History: None Reported - Past Family History Father Family Medical History: Cancer Medications and Allergies Home Medications Medication Instructions Recorded Confirmed Type Fluticasone Nasal Mak[place] [Flonase 2 spray EA NOSTRIL DAILY 11/11/23 11/12/23 History Nasal Makanda] Pantoprazole Sodium 40 mg PO BID 11/11/23 11/12/23 History Allergies Allergy/AdvReac Type Severity Reaction Status Date / Time No Known Allergies Allergy Verified 11/12/23 09:32 Physical Exam Vitals: Vital Signs Temp Pulse Resp BP Pulse Ox FiO2 11/15/23 12:00 98.1 F 85 24 119/63 99 09/13/24 11:46 74 11/15/23 11:33 76 11/15/23 11:30 74 24 98 11/15/23 11:00 79 24 112/60 96 11/15/23 10:30 85 18 112/60 96 11/15/23 10:00 76 18 94/78 96 11/15/23 09:30 81 20 125/69 96 11/15/23 09:00 82 20 127/65 97 11/15/23 08:30 87 20 129/72 98 11/15/23 08:06 78 11/15/23 08:00 98.5 F 84 20 119/67 97 11/15/23 07:46 76 11/15/23 07:30 78 24 117/65 98 11/15/23 07:00 80 24 124/74 97 11/15/23 06:30 86 37 H 96/81 92 L 11/15/23 06:00 75 25 H 117/59 97 11/15/23 05:30 80 15 104/63 96 11/15/23 05:00 77 20 120/60 99 11/15/23 04:30 74 23 122/71 98 11/15/23 04:00 98.2 F 70 22 120/73 98 11/15/23 03:30 76 16 122/70 98 11/15/23 03:00 73 20 130/74 98 11/15/23 02:30 72 20 126/75 99 11/15/23 02:00 84 26 H 121/71 90 L 11/15/23 01:30 80 11 L 120/67 99 11/15/23 01:00 76 16 111/84 98 11/15/23 00:30 110 H 17 104/74 98 11/15/23 00:00 98.0 F 113 H 18 120/77 97 11/14/23 23:30 109 H 9 L 127/71 98 11/14/23 23:22 107 H 6 L 127/71 97 11/14/23 23:00 76 23 108/87 98 11/14/23 22:30 113 H 23 127/78 98 11/14/23 22:00 112 H 24 118/67 97 11/14/23 21:30 86 21 122/72 97 11/14/23 21:00 78 25 H 126/75 97 11/14/23 20:38 72 11/14/23 20:31 71 11/14/23 20:30 71 21 122/71 98 11/14/23 20:00 98.1 F 69 26 H 125/80 97 11/14/23 19:30 73 23 115/70 98 11/14/23 19:04 40 11/14/23 19:00 74 24 120/75 97 11/14/23 18:30 75 19 115/73 97 11/14/23 18:00 77 22 112/69 99 11/14/23 17:30 73 19 112/69 99 11/14/23 17:00 98.1 F 74 22 112/68 99 11/14/23 16:30 76 20 114/68 99 11/14/23 16:00 77 20 111/64 99 45 11/14/23 15:30 77 18 101/62 99 11/14/23 15:29 78 11/14/23 15:17 73 11/14/23 15:13 45 11/14/23 15:00 73 22 95/57 99 11/14/23 14:30 74 21 95/60 99 11/14/23 14:00 76 22 94/58 99 Intake and Output 11/14/23 11/15/23 11/15/23 22:59 06:59 14:59 Intake Total 833.228 985 0595.171 Output Total 610 475 820 Balance 223.626 325 209.171 Intake: IV 800 800 600 Lactated Ringers 1,000 ml 800 800 600 @ 100 mls/hr IV .Q10H [facility] Rx#:[id number] Intake, IV Titration 33.626 429.171 Amount Amiodarone 450 mg In 229.171 Dextrose 5% in Water 250 ml @ 0.5 MG/MIN 16.667 mls/hr IV .Q15H [facility] Rx#: [id number] Dexmedetomidine/0.9% NaCl 29.495 (Pmx) 400 mcg In Empty Bag 1 bag @ 0.2 MCG/KG/HR 4.895 mls/hr IV .[id number] [facility] Rx#:[id number] Magnesium Sulfate-D5w Pmx 100 1 gm In Dextrose/Water 1 100ml.bag @ 100 mls/hr IVPB ONCE ONE Rx#: [id number] Piperacillin-Tazobactam 3 100 .375 gm In Sodium Chloride 0.9% 100 ml @ 25 mls/hr IVPB Q8HR [facility] Rx# :[id number] propofoL 1,000 mg In 4.131 Empty Bag 1 bag @ 15 MCG/ KG/MIN 8.262 mls/hr IV . Q12H7M [facility] Rx#:[id number] Output: Gastric Drainage 250 400 Urine 360 475 420 Other: Voiding Method Indwelling Catheter Indwelling Catheter Indwelling Catheter Weight 101 kg 101 kg - Constitutional General appearance: average body habitus, no acute distress - EENT Eyes: anicteric sclerae, EOMI ENT: hearing grossly normal - Respiratory breathing is even and unlabored - Cardiovascular skin warm and dry - Gastrointestinal General gastrointestinal: tenderness - Integumentary Integumentary: no cyanotic, pale - Musculoskeletal Musculoskeletal: generalized weakness - Psychiatric Psychiatric: A&O x's 3 Results CBC & Chem 7: 11/15/23 05:23 11/15/23 05:23 Labs: Abnormal Lab Results - Last 24 Hours (Table) 11/14/23 11/14/23 11/14/23 Range/Units 14:41 14:50 17:17 WBC (3.8-10.6) k/uL RBC 2.60 L (4.30-5.90) m/uL Hgb 7.2 L (13.0-17.5) gm/dL Hct 22.5 L (39.0-53.0) % MCHC (31.0-37.0) g/dL Neutrophils # (1.3-7.7) k/uL Lymphocytes # (1.0-4.8) k/uL ABG pO2 (83-108) mmHg ABG HCO3 (21-25) mmol/L ABG Total CO2 (19-24) mmol/L ABG O2 Saturation (94-97) % Hemoglobin (13.0-17.5) gm/dL Glucose (74-99) mg/dL POC Glucose (mg/dL) 148 H (70-110) mg/dL Urine Protein Trace H (Negative) Triple Phos Crystals Moderate H (None) /hpf Amorphous Sediment Moderate H (None) /hpf Urine Mucus Rare H (None) /hpf 11/14/23 11/15/23 11/15/23 Range/Units 18:13 00:47 05:23 WBC 10.7 H (3.8-10.6) k/uL RBC 2.79 L (4.30-5.90) m/uL Hgb 7.5 L (13.0-17.5) gm/dL Hct 24.4 L (39.0-53.0) % MCHC 30.6 L (31.0-37.0) g/dL Neutrophils # 9.1 H (1.3-7.7) k/uL Lymphocytes # 0.9 L (1.0-4.8) k/uL ABG pO2 110 H (83-108) mmHg ABG HCO3 26 H (21-25) mmol/L ABG Total CO2 27 H (19-24) mmol/L ABG O2 Saturation 99.0 H (94-97) % Hemoglobin 7.5 L (13.0-17.5) gm/dL Glucose (74-99) mg/dL POC Glucose (mg/dL) 124 H (70-110) mg/dL Urine Protein (Negative) Triple Phos Crystals (None) /hpf Amorphous Sediment (None) /hpf Urine Mucus (None) /hpf 11/15/23 11/15/23 11/15/23 Range/Units 05:23 06:02 11:24 WBC (3.8-10.6) k/uL RBC (4.30-5.90) m/uL Hgb (13.0-17.5) gm/dL Hct (39.0-53.0) % MCHC (31.0-37.0) g/dL Neutrophils # (1.3-7.7) k/uL Lymphocytes # (1.0-4.8) k/uL ABG pO2 (83-108) mmHg ABG HCO3 (21-25) mmol/L ABG Total CO2 (19-24) mmol/L ABG O2 Saturation (94-97) % Hemoglobin (13.0-17.5) gm/dL Glucose 126 H (74-99) mg/dL POC Glucose (mg/dL) 132 H 135 H (70-110) mg/dL Urine Protein (Negative) Triple Phos Crystals (None) /hpf Amorphous Sediment (None) /hpf Urine Mucus (None) /hpf Microbiology - Last 24 Hours (Table) 11/13/23 01:20 Gram Stain - Final Sputum Sputum Culture - Final Abdominal x-ray: report reviewed US - abdomen: report reviewed Assessment and Plan (1) Large B-cell lymphoma Current Visit: Yes Status: Acute Priority: High Code(s): C85.10 - UNSPECIFIED B-CELL LYMPHOMA, UNSPECIFIED SITE SNOMED Code(s): 131681251 (2) Aspiration into airway Current Visit: Yes Status: Acute Priority: High Code(s): T17.908A - UNSP FB IN RESP TRACT, PART UNSP CAUSING OTH INJURY, INIT SNOMED Code(s): 121616727 (3) Gastric outlet obstruction Current Visit: Yes Status: Acute Priority: High Code(s): K31.1 - ADULT HYPERTROPHIC PYLORIC STENOSIS SNOMED Code(s): 369449511 (4) Gastric ulcer Current Visit: Yes Status: Acute Priority: High Code(s): K25.9 - GASTRIC ULCER, UNSP ACUTE OR CHRONIC, W/O HEMOR OR PERF SNOMED Code(s): 049194452 (5) Iron deficiency anemia Current Visit: Yes Status: Acute Priority: High Code(s): D50.9 - IRON DEFICIENCY ANEMIA, UNSPECIFIED SNOMED Code(s): 86182671 Plan: Large B cell lymphoma: Patient was scheduled for outpatient upper EGD with Dr. Cheng, for complaints of chronic epigastric pain over the last 8 months with a 20 lb weight loss over the last 4 months. -Underwent EGD on On 11/12/2023 revealing revealing a large superficial gastric antral ulceration involving most of the antrum. Multiple biopsies obtained. The antral ulceration was extending to the pylorus causing pyloric stenosis and gastric outlet obstruction. -Pathology was positive for high-grade non-Hodgkin's diffuse large B-cell lymphoma, non-germinal center activated B-cell type -FISH testing for MYC, BCL2 and BCL6 pending -Scheduled for J-tube and medi-port placement 11/15 -Will plan for PET CT in the outpt setting Discussed diagnosis and plan in detail with patient and family. All questions and concerns were addressed Iron deficiency anemia: -CBC today showing, WBC 10.7, hemoglobin 7.5, MCV 87.3, platelets 239,000 -S/p 1 unit PRBCs -Anemia labs revealed iron saturation 1.6%, ferritin 34.6, vitamin B12 569, folate 4.4 -Parenteral iron ordered -Continue to monitor CBC. Transfuse for hgb <7 or if symptomatic attests: I have seen and examined patient, performed H&P, developed impression and plan of care. Discussed with dictator. Agree with documentation , dictated as a scribe
[2023-11-15 23:47] LABS: Glucose,Whole Blood 111 mg/dL (70-110)
[2023-11-16 04:41] LABS: Basophils % (A) 0 %; Eosinophils # (A) 0.1 k/uL (0-0.7); Eosinophils % (A) 1 %; HCT 25.5 % (39.0-53.0); HGB 7.7 gm/dL (13.0-17.5); Hypochromasia Marked; Lymphocytes # (A) 1.1 k/uL (1.0-4.8); Lymphocytes % (A) 9 %; MCH 26.4 pg (25.0-35.0); MCHC 30.1 g/dL (31.0-37.0); MCV 87.7 fL (80.0-100.0); Mean Platelet Volume 7.1; Monocytes # (A) 0.6 k/uL (0-1.0); Monocytes % (A) 4 %; Neutrophils # (A) 11.1 k/uL (1.3-7.7); Neutrophils % (A) 85 %; Platelet Count 248 k/uL (150-450); RDW 14.7 % (11.5-15.5)
[2023-11-16 05:00] LABS: Chloride 106 mmol/L (98-107)
[2023-11-16 05:02] LABS: African American GFR (CKD) >90 (>60 ml/min/1.73 sqM); Anion Gap 8 mmol/L; Blood Urea Nitrogen 19 mg/dL (9-20); Calcium 8.4 mg/dL (8.4-10.2); Carbon Dioxide 23 mmol/L (22-30); Glucose 107 mg/dL (74-99); Magnesium 2.1 mg/dL (1.6-2.3); Non-African American GFR(CKD) 86 (>60 ml/min/1.73 sqM); Potassium 4.3 mmol/L (3.5-5.1); Sodium 137 mmol/L (137-145)
[2023-11-16 06:06] LABS: Glucose,Whole Blood 115 mg/dL (70-110)
--- NOTE | 2023-11-16 07:09 | XR ---
EXAMINATION TYPE: XR chest 1V portable DATE OF EXAM: 11/16/2023 6:03 AM CLINICAL INDICATION: Male, 73 years old with history of shortness of breath; [facility] COMPARISON: Chest radiographs from 11/15/2023 TECHNIQUE: XR chest 1V portable Frontal view of the chest. FINDINGS: Lungs/Pleura: There is no evidence of pleural effusion, focal consolidation, or pneumothorax. Pulmonary vascularity: Unremarkable. Heart/mediastinum: Cardiomediastinal silhouette is unremarkable. Musculoskeletal: No acute osseous pathology. Other findings: None Lines/Tubes: Poorly visualized nasogastric distal tip secondary to patient body habitus. IMPRESSION: Improved aeration of the left lung. There remains perihilar airspace opacities correlate for congesti ve heart failure.
[2023-11-16] MEDS: FUROSEMIDE 10 MG/ML 4 ML VIAL IV STA (08:16)
[2023-11-16] MEDS: methylPREDNISolone SOD SUCCI 40 MG/ML 1 ML VIAL IV SCH (09:36)
[2023-11-16] MEDS: LACTATED RINGERS 1,000 ML IV ONE (10:23)
--- NOTE | 2023-11-16 10:57 | P.PN ---
Subjective Progress Note Date: 11/16/23 Principal diagnosis: Acute hypoxic respiratory failure requiring intubation mechanical ventilation secondary to aspiration. This is a 73-year-old white male with history of chronic abdominal pain for the last 8 months has been treated with Protonix 40 mg daily for the last 3 months with no improvement. Patient had a 22 pound weight loss in the last [address] of the abdomen and pelvis 3 weeks ago showed thickening of the antral wall with pathological adenopathy posterior to the stomach suspicious of neoplasm. Today the patient underwent elective upper endoscopy to evaluate further, patient received IV sedation by anesthesia endoscope was inserted into the mouth, esop hagus was intubated without any difficulty there was evidence of large amount of liquid and solid food noted in the stomach suggestive of gastric outlet obstruction. Scope could not be advanced through the pylorus, however in the prepyloric area there was a large superficial ulceration identified with multiple biopsies were done from this area. The body cardia and fundus could not adequately visualize because of large amount of retained food in the stomach. Scope was withdrawn back to the stomach and upon careful examination the mucosa of the antrum body and cardia as well as the fundus appeared normal. Procedure was being performed and biopsies were done patient threw up and subsequently became hypoxic there was clearly evidence of witnessed aspiration anesthesia intubated the patient, procedure was terminated, and the patient was transferred to the ICU, this consult was initiated. Patient is now on assist- control rate of 20 tidal volume 500 FiO2 70% PEEP of 10 ABG is pending, earlier ABG showed profound hypoxia patient is on propofol at 50 mcg/kg/min, next ABG is pending. Chest x-ray showed chronic changes without evidence of acute pulmonary disease. Patient was seen and examined today on 11/13/2023, remains in the ICU, intubated mechanically ventilated, on assist-control rate of 20 tidal volume 500 FiO2 50% and PEEP of 10 ABG showed a pO2 of 143 pCO2 47 pH of 7.28 hence PEEP was cut down to 6, and increased rate to 22. Patient is still requiring IV fluid at 100 cc/h/LR. Requiring norepinephrine at 0.08 mcg/kg/min he is also on propofol at 50 mg/kg/min antibiotics arce patient is receiving Zosyn. Chest x-ray is showing worsening infiltrates specially in the left lung. This could be related to aspiration pneumonia. Patient had witnessed aspiration during end oscopy/upper endoscopy.WBC count is 14 hemoglobin 7.6 basic metabolic profile is normal BUN is 26 creatinine 1.57 obviously the patient sustained some acute kidney injury baseline creatinine 0.86 patient had received fluids over the last 24 hours, remains on fluids at 100 cc/h Patient with seen and examined today on 11/14/2023, patient remains in the ICU, intubated and mechanically ventilated. Failed weaning trial yesterday and he became quite agitated and desaturated once he went off propofol. Had to be placed back on assist-control mode of mechanical ventilation and sedation. Today the patient is on assist-control rate of 22 tidal volume 500 FiO2 50% PEEP of 6. ABG showed a pO2 of 123 pCO2 51 pH of 7.32, and I cut down his FiO2 down to 45%, patient is receiving a unit of packed RBCs for hemoglobin of 6.9 today. Patient had an episode of A-fib RVR at 3 AM in the morning, seen by cardiology, and recommended patient goes on amiodarone. Still requiring norepinephrine at 0.05 mg/kg/min, he is on LR at 100 cc/h propofol at 50 mg/kg/min. Remains empirically on Zosyn for aspiration pneumonia. My plan today is transitioning the patient to Precedex, hopefully discontinue propofol, and at least give the patient a decent weaning trial or at least check weaning parameters before we proceed to weaning trial. Chest x-ray continues to show evidence of pneumonia mostly in the left lung and left lower lobe more specifically. Some pulmonary vascular congestion is noted with interstitial edema, small pleural effusion is also noted/left side. WBC count today is 12 hemoglobin 6.9 basic metabolic profile is normal bicarb is 25, BUN is 25 creatinine is improving down to 1.21 from 1.57 yesterday Patient was evaluated today on 11/15/2023, patient remains in the ICU, he was extubated yesterday, and his extubation was relatively uneventful. However the patient continues to have nasogastric tube in place, his pathology report came back showing non-Hodgkin's lymphoma, patient has gastric outlet obstruction, and the recommendation by GI is to consult surgery for a jejunostomy tube which is appropriate. Patient will be seen today by oncology and he will be seen by general surgery. In the meantime patient is comfortable, he is on 5 L nasal cannula he has LR running at 100 cc/h, he is remains on Zosyn for aspiration pneumonia remains on amiodarone which was started by cardiology for atrial fibrillation with RVR, presently in sinus rhythm. Cannot switch him to oral because of the fact that remains n.p.o., patient remains on TPN. WBC count is 10.7 hemoglobin 7.5 electrolytes are normal renal profile is normal, creatinine normalized to 0.96 Patient was evaluated today on 11/16/2023, remains in the ICU, on 5 L nasal cannula remains on amiodarone at 0.5 mg/min remains on LR at 100 cc/h, however his chest x-ray is showing some component of interstitial edema or could be findings related to his recent episode of aspiration/aspiration pneumonia, nonetheless the patient seems to be a bit symptomatic, he has intermittent cough and wheezing, I am recommending Lasix 40 mg IV push, cut down his IV fluid to 50 cc/h, continue Zosyn, patient will be placed on DuoNeb updrafts and on Solu- Medrol. Patient is scheduled to have jejunostomy-tube placement today. WBC count is 13 hemoglobin 7.7 basic metabolic profile is normal and renal profile is normal Objective - Vital Signs Vital signs: Vital Signs Temp 98.1 F 11/16/23 08:00 Pulse 90 11/16/23 10:34 Resp 20 11/16/23 10:34 BP 124/70 11/16/23 10:34 Pulse Ox 98 11/16/23 10:34 FiO2 40 11/16/23 10:34 Intake & Output 11/15/23 11/16/23 11/16/23 18:59 06:59 18:59 Intake Total 4335.741 1574 350 Output Total 5435 906 1332 Balance 977.619 9134 -900 Weight 101 kg Intake: IV 1300 1300 250 0.9 @ 50 150 Lactated Ringers 1,000 ml 1300 1200 @ 50 mls/hr IV .Q20H [facility] Rx#:[id number] Piperacillin-Tazobactam 3 100 .375 gm In Sodium Chloride 0.9% 100 ml @ 25 mls/hr IVPB Q8HR [facility] Rx# :[id number] Sodium Ferric Gluconat- 100 Sucrose 125 mg In Sodium Chloride 0.9% 100 ml @ 100 mls/hr IVPB DAILY [facility] Rx#:[id number] Intake, IV Titration 351.916 4215 100 Amount Amiodarone 450 mg In 229.171 Dextrose 5% in Water 250 ml @ 0.5 MG/MIN 16.667 mls/hr IV .Q15H [facility] Rx#: [id number] Magnesium Sulfate-D5w Pmx 100 1 gm In Dextrose/Water 1 100ml.bag @ 100 mls/hr IVPB ONCE ONE Rx#: [id number] Piperacillin-Tazobactam 3 200 1200 100 .375 gm In Sodium Chloride 0.9% 100 ml @ 25 mls/hr IVPB Q8HR [facility] Rx# :[id number] Sodium Ferric Gluconat- 100 Sucrose 125 mg In Sodium Chloride 0.9% 100 ml @ 100 mls/hr IVPB DAILY [facility] Rx#:[id number] Output: Gastric Drainage 400 100 Urine [phone] Stool 1 Other: Voiding Method Indwelling Catheter Indwelling Catheter - Exam General: Revealed 73-year-old white male on 5 L nasal cannula, not in any distress Skin: Skin is warm and dry and no rashes or lesions are noted. Eye: Pupils are equal, round and reactive to light, extra-ocular movements are intact; there is normal conjunctiva bilaterally. Ears, nose, mouth and throat: There are moist mucous membranes and no oral lesions. Neck: The neck is supple, there is no tenderness or JVD. Cardiovascular: There is a regular rate and rhythm. No murmur, rub or gallop is appreciated. Respiratory: Scattered rhonchi and wheezing noted bilaterally Gastrointestinal: Soft, non-distended, non-tender abdomen without masses or organomegaly noted. There is no rebound or guarding present. Bowel sounds are unremarkable. Musculoskeletal: No deformities and no limitation range of motion Neurological: Alert and oriented x 3 no gross focal neurologic deficit Psychiatric: Normal mood normal affect and normal mental status examination - Labs CBC & Chem 7: 11/16/23 03:58 11/16/23 03:58 Labs: Abnormal Lab Results - Last 24 Hours (Table) 11/15/23 11/15/23 11/15/23 Range/Units 11:24 18:36 23:46 WBC (3.8-10.6) k/uL RBC (4.30-5.90) m/uL Hgb (13.0-17.5) gm/dL Hct (39.0-53.0) % MCHC (31.0-37.0) g/dL Neutrophils # (1.3-7.7) k/uL Glucose (74-99) mg/dL POC Glucose (mg/dL) 135 H 122 H 111 H (70-110) mg/dL 11/16/23 11/16/23 11/16/23 Range/Units 03:58 03:58 06:05 WBC 13.0 H (3.8-10.6) k/uL RBC 2.90 L (4.30-5.90) m/uL Hgb 7.7 L (13.0-17.5) gm/dL Hct 25.5 L (39.0-53.0) % MCHC 30.1 L (31.0-37.0) g/dL Neutrophils # 11.1 H (1.3-7.7) k/uL Glucose 107 H (74-99) mg/dL POC Glucose (mg/dL) 115 H (70-110) mg/dL Microbiology - Last 24 Hours (Table) 11/13/23 01:20 Gram Stain - Final Sputum Sputum Culture - Final Assessment and Plan Assessment: Impression: Acute hypoxic respiratory failure requiring intubation mechanical ventilation secondary to aspiration. Patient was extubated on 11/14/2023 and tolerated the extubation well. Acute aspiration pneumonia Acute aspiration during upper endoscopy most likely secondary to gastric outlet obstruction secondary to non-Hodgkin's lymphoma based on the pathology from stomach biopsies Chronic abdominal pain, secondary to lymphoma Unexplained weight loss most likely secondary non-Hodgkin's lymphoma involving the stomach Paroxysmal atrial fibrillation, remains on amiodarone Recommendation: Patient was given a dose of Lasix 40 mg IV push IV fluid cut down to 40 cc/h Place patient on bronchodilators/DuoNeb and Solu-Medrol for his wheezing today. Family has been updated on the pathology from his stomach biopsies Patient may have a jejunostomy tube placed today Will continue to monitor in the ICU Continue TPN Patient was already seen by oncology and outpatient follow-up was recommended Continue Zosyn for aspiration pneumonia GI and DVT prophylaxis Will continue to follow Time with Patient: Less than 30
[2023-11-16] MEDS ORDERED: PROPOFOL 10 MG/ML 20 ML VIAL IV ONE (11:19)
[2023-11-16] MEDS ORDERED: fentaNYL (PF) 50 MCG/ML 2 ML AMP ONE (11:19)
[2023-11-16] MEDS ORDERED: SUCCINYLCHOLINE CHLORIDE 200 MG/10 ML VIAL IV ONE (11:19)
[2023-11-16] MEDS ORDERED: ROCURONIUM 10 MG/ML (5 ML VIAL) IV ONE (11:19)
[2023-11-16] MEDS ORDERED: LIDOCAINE 1% INJ 10MG/ML (20 ML MDV) ONE (11:19)
[2023-11-16] MEDS ORDERED: NEOSTIGMINE 1 MG/ML 10 ML VIAL ONE (11:19)
[2023-11-16] MEDS ORDERED: GLYCOPYRROLATE 0.2 MG/ML 2 ML VIAL ONE (11:19)
[2023-11-16] MEDS: HEPARIN SODIUM,PORCINE 100 UNIT/ML 5 ML VIAL IV ONE (12:16)
[2023-11-16] MEDS: LIDOCAINE (PF) 10 MG/ML 2 ML VIAL SQ ONE (12:17)
[2023-11-16] MEDS: IV FLUID CONTINUATION 1,000 ML IV ONE (12:55)
--- NOTE | 2023-11-16 13:47 | XR ---
EXAMINATION TYPE: XR chest 1V DATE OF EXAM: 11/16/2023 1:35 PM CLINICAL INDICATION: Male, 73 years old with history of PTX s/p port; [facility] COMPARISON: Chest radiographs from 11/16/2023 TECHNIQUE: XR chest 1V Frontal view of the chest. FINDINGS: Lungs/Pleura: No evidence of focal consolidation or pneumothorax. Blunting of the costophrenic angles is present. Pulmonary vascularity: Pulmonary vascular congestion. Heart/mediastinum: Cardiac size is normal. Musculoskeletal: No acute osseous pathology. Other findings: None Lines/Tubes: Nasogastric tube with its distal tip and side-port projecting under the diaphragm. Iaauhr-i-Uxev projecting over the right hemithorax with distal tip at the cavoatrial junction. IMPRESSION: 1. Right [id number] with distal tip in appropriate position. No evidence for pneumothorax. 2. pulmonary vascular congestion and bilateral pleural effusions. [facility], Workstation [id number], 11/16/2023 1:45 PM
[2023-11-16 14:31] LABS: Glucose,Whole Blood 152 mg/dL (70-110)
--- NOTE | 2023-11-16 19:08 | P.OP ---
Date of Procedure: 11/16/23 Preoperative Diagnosis: 1. Non Hodgkins Lymphoma 2. Malnourished Postoperative Diagnosis: 1. Non Hodgkins Lymphoma 2. Malnourishment Procedure(s) Performed: 1. Mediport Insertion 2. Witzel Feeding Jejunostomy Anesthesia: MAC Surgeon: Dick Ewing Estimated Blood Loss (ml): 10 Pathology: none sent Condition: stable Disposition: PACU Description of Procedure: The patient was taken to the operating room, placed supine, put under general endotracheal anesthesia. The patient's neck, chest, and shoulders were prepped and draped in usual sterile fashion. An incision was made on the right shoulder area and a needle with syringe attached was used to access the right subclavian vein. The right subclavian vein was cannulated. The wire was passed, which was in good position under fluoroscopy, using Seldinger Technique. Near the wire incision site a pocket was made above the fascia and sutured in a size 7.5- [place] single-lumen MediPort into the pocket in 4 places using 2-0 Vicryl. I then sized the catheter under fluoro and placed introducer and dilator over the wire, removed the wire and dilator, placed the catheter through the introducer and removed the introducer. The line tip was in good position under fluoroscopy. It withdrew and flushed well. I then closed the incision using 3-0 Vicryl, 4-0 Monocryl for the skin, and skin glue was applied. Attention was next turned to the abdomen. The abdomen was draped and prepped sterilely. A small midline incision was made. Bovie electrocautery was used to dissect through the subcutaneous tissue down to the fascia and eventually the peritoneal cavity. The ligament of Treitz was identified. The jejunum was ran about 50 cm distally and marked. At this point, a small stab incision was made to the left of the midline. The feeding tube was tunneled from this location and into the abdomen. The area that was maked was located. A small enterotomy was made at this this site. The feeding tube was advanced into the jejunum here. Once the tube was fully inserted, the balloon was insufflated with 10 cc saline. At this point, Witzel technique was done with #2-0 Silk imbricating the small bowel around the feeding tube. The small bowel was then placed back into the abdomen. There were no kinks noted. The jejunostomy was pulled until the bumper was flush with the abdominal wall. This was secured with #2-0 Nylon. The midline incision was closed with #0 Looped PDS suture. The skin was closed with #4-0 Monocryl. Skin glue was applied.
--- NOTE | 2023-11-16 19:16 | P.PN ---
Progress Note - Text Progress Note Date: 11/16/23 Chief Complaint: Aspirated This is a 73-year-old patient, follows with Dr. Patricia Deal. Patient was seen this morning in the ICU. Patient's and daughter at the bedside. History obtained predominantly by the . Patient been having trouble with his stomach symptoms for close to 8 months. Patient underwent EGD by Dr. Sahara Cheng yesterday. Patient was found to have ulcerated around the antrum and obstruction to the pylorus. A lot of retained food was found. Patient aspirated. Had to be intubated and brought to the ICU. On a Levophed drip. FiO2 50 and a PEEP of 6. Patient had been losing weight lost about 25 pounds. Previously has a history of mitral valve prolapse. November 13: ICU. Patient remains on Precedex drip and propofol drip. Did not do well attempted extubation yesterday. Patient been off Levophed. NG tube to suction. Spoke to patient's and son at the bedside. Biopsy results awaited. Hemoglobin dropped to 6.9 this morning. Get a unit of blood. November 14: ICU. Up in a chair. Extubated yesterday. NG tube to suction. at the bedside. 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 Oncology was consulted. They have ordered a port. Results discussed with Dr. Sahara Cheng. General surgery was consulted for J-tube placement. Discussed with at the bedside. Patient getting IV fluids, IV Zosyn,. Patient has been on IV amiodarone for A-fib-back in sinus rhythm. Multiple PACs. Did receive unit of blood yesterday. Also IV ferric gluconate. November 15: ICU. Patient earlier today underwent jejunostomy tube placement and a port placement. Patient awake. Answering questions. NG tube to suction present. Updated patient's . Patient remains on IV amiodarone and IV Zosyn. Active Medications Albuterol/Ipratropium (Ipratropium-Albuterol 3 Ml Neb) 3 ml INHALATION RT-QID NIRMAL Last Admin: 11/16/23 17:33 Dose: 3 ml Hydromorphone HCl (Hydromorphone 0.5 Mg/0.5 Ml Syringe) 0.5 mg IVP Q3HR PRN PRN Reason: Pain Last Admin: 11/16/23 17:31 Dose: 0.5 mg Lactated Ringer's (Lactated Ringers) 1,000 mls @ 50 mls/hr IV .Q20H NIRMAL Stop: 12/12/23 05:39 Last Admin: 11/16/23 06:08 Dose: 100 mls/hr Piperacillin Sod/Tazobactam (Sod 3.375 gm/ Sodium Chloride) 100 mls @ 25 mls/hr IVPB Q8HR NIRMAL; Protocol Last Admin: 11/16/23 16:57 Dose: 25 mls/hr Amiodarone HCl 450 mg/ (Dextrose/Water) 250 mls @ 16.667 mls/hr IV .Q15H NIRMAL; Protocol Last Admin: 11/16/23 17:33 Dose: 0.5 mg/min, 16.667 mls/hr Ferric Sodium Gluconate 125 mg (/ Sodium Chloride) 110 mls @ 100 mls/hr IVPB DAILY NIRMAL Stop: 11/18/23 10:05 Last Admin: 11/16/23 08:15 Dose: 100 mls/hr Lidocaine HCl (Lidocaine 1% (10mg/Ml) For Iv Start) 0.1 ml INTRADERMA PER PROTOCOL PRN PRN Reason: IV Start Stop: 12/12/23 05:39 Methylprednisolone Sodium Succinate (Methylprednisolone Sod Succi 40 Mg/Ml 1 Ml Vial) 40 mg IV Q8HR NIRMAL Last Admin: 11/16/23 16:57 Dose: 40 mg Miscellaneous Information (Magnesium Replacement Protocol 1 Each Misc) 1 each MISCELLANE DAILY PRN; Protocol PRN Reason: Per Protocol Naloxone HCl (Naloxone 0.4 Mg/Ml 1 Ml Vial) 0.2 mg IV Q2M PRN PRN Reason: Opioid Reversal Pantoprazole Sodium (Pantoprazole 40 Mg/10 Ml Vial) 40 mg IVP BID [facility] Last Admin: 11/16/23 08:16 Dose: 40 mg Past medical history to include: GERD Social history: . No smoking. Physical examination: VITAL SIGNS: Afebrile, 74, 10, 122 x 69, 96% GENERAL: Reclining in bed, a bit tired. [place] EYES: Pupils equal. Conjunctiva edouard l. HEENT: External appearance of nose and ears normal, oral cavity grossly normal. NG tube NECK: JVD unable to assess; masses not palpable. HEART: First and second heart sounds are normal; no edema. LUNGS: Respiratory rate increased decreased breath sounds. ABDOMEN: Soft, nontender, liver spleen not palpable, no masses palpable.. New jejunostomy tube. PSYCH: Awake answering questions INVESTIGATIONS, reviewed in the clinical context: November 15: WBC 13 hemoglobin 7.7 platelets 248 potassium 4.3 creatinine 0.87 2D echo: EF 55 to 60%. November 14: White count 10.7 hemoglobin 7.5 platelets 239 potassium 4.2 creatinine 0.96 Kidneys bladder: Unremarkable November 13: White count 12 hemoglobin 6.9 platelets 276 potassium 4.4 creatinine 1.21 magnesium 1.8 iron 6 TIBC 365% saturation 1.64 transferrin 261 ferritin 34.6 B12 569 folate 4.4 November 12: White count 14 hemoglobin 7.6 platelets 333 sodium 136 BUN 26 creatinine 1.57 November 11: Creatinine 0.86 EGD: Large amount of retained solid liquid food noted in the stomach. Large superficial gastric antral ulceration involving most of the antrum extending into the pylorus causing pyloric stenosis. Biopsies were obtained. Chest x-ray film personally reviewed by me-scattered infiltrates Assessment plan: -Aspiration pneumonitis bilateral from retained gastric contents mostly food and liquids, causing acute hypoxic respiratory failure: IV Zosyn -Acute kidney injury. Possible ATN from hypotensive shock: Corrected Strict I's and O's. Follow renal function. Renal ultrasound unremarkable Seen by nephrology. IV fluids. I's and O's. -Nutrition Jejunostomy tube placed November [address] Ewing -Paroxysmal atrial fibrillation-sinus rhythm IV amiodarone -Acute hypoxic respiratory failure from aspiration pneumonia, status post ventilator assisted: Improving Titrate FiO2 down -Normocytic anemia likely o secondary underlying lymphoma Iron deficiency anemia Received a unit of blood. IV iron. -Acute blood loss anemia, could be oozing from biopsy site in the stomach Received blood -GERD PPI -Large superficial gastric antral ulceration involving the gastric antrum extending into the pylorus with gastric outlet obstruction. 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 Port placed -Full code Updated patient's at the bedside. Discussed with and granddaughter at the bedside. Discussed with Dr. Sahara Cheng, general surgery, nurse. Hopefully amiodarone can be discontinued by cardiology tomorrow. Echo is normal. It was episodic A-fib given acute clinical stressor Past Medical History Past Medical History: GERD/Reflux History of Any Multi-Drug Resistant Organisms: None Reported Past Surgical History: Heart Catheterization Additional Past Surgical History / Comment(s): colonsocopy,spinal injection, Past Anesthesia/Blood Transfusion Reactions: No Reported Reaction Past Psychological History: No Psychological Hx Reported Smoking Status: Never smoker Past Alcohol Use History: None Reported Past Drug Use History: None Reported
[2023-11-16 23:44] LABS: Glucose,Whole Blood 169 mg/dL (70-110)
[2023-11-17 05:35] LABS: Glucose,Whole Blood 185 mg/dL (70-110)
[2023-11-17 06:24] LABS: Basophils % (A) 0 %; Eosinophils % (A) 0 %; HCT 25.3 % (39.0-53.0); HGB 7.9 gm/dL (13.0-17.5); Hypochromasia Marked; Lymphocytes # (A) 0.8 k/uL (1.0-4.8); Lymphocytes % (A) 8 %; MCH 26.6 pg (25.0-35.0); MCV 85.8 fL (80.0-100.0); Mean Platelet Volume 7.5; Monocytes # (A) 0.4 k/uL (0-1.0); Monocytes % (A) 5 %; Neutrophils # (A) 7.8 k/uL (1.3-7.7); Neutrophils % (A) 86 %; Platelet Count 259 k/uL (150-450); RBC 2.96 m/uL (4.30-5.90); RDW 14.9 % (11.5-15.5); WBC 9.1 k/uL (3.8-10.6)
[2023-11-17 06:43] LABS: African American GFR (CKD) >90 (>60 ml/min/1.73 sqM); Anion Gap 5 mmol/L; Blood Urea Nitrogen 26 mg/dL (9-20); Calcium 8.3 mg/dL (8.4-10.2); Carbon Dioxide 29 mmol/L (22-30); Chloride 107 mmol/L (98-107); Glucose 173 mg/dL (74-99); Non-African American GFR(CKD) 83 (>60 ml/min/1.73 sqM); Potassium 4.3 mmol/L (3.5-5.1); Sodium 141 mmol/L (137-145)
[2023-11-17] MEDS: AMIODARONE 200 MG TAB PO SCH (08:54)
[2023-11-17] MEDS: FUROSEMIDE 10 MG/ML 4 ML VIAL IV STA (08:54)
--- NOTE | 2023-11-17 09:35 | P.PN ---
Progress Note - Text Progress Note Date: 11/17/23 RAGHAV. Patient is resting comfortable in bed. VSS General-NAD Abdomen-soft, incsiional TTP, ND, Jejunostomy Tube in place 73 year old male POD #1 Mediport Insertion and Witzel Feeding Jejunostomy Placement -Ok for meds and to start trickle feeds through feeding tube -Director Of Strategy & Mobile recs for feeding formula and TF goals -pain and nausea control -ICU care Dick Ewing DO [facility] [phone]
--- NOTE | 2023-11-17 10:32 | P.PN ---
Subjective Progress Note Date: 11/17/23 The patient is a pleasant 73-year-old gentleman who requested to stay in the ICU for further evaluation of atrial fibrillation with RVR. The patient is currently intubated and the history was taken from the chart. The patient presented to the hospital as an outpatient to undergo an EGD because he was ex periencing epigastric discomfort. There was difficulties in getting the EGD done and the patient developed aspiration. Subsequently he went into respiratory distress and he was intubated and admitted to the intensive care unit. We requested to see the patient for further evaluation of atrial fibr illation with RVR. Apparently no history of atrial fibrillation in the chart. The patient does not have any history of CAD or heart failure or any cardiac arrhythmia. Currently is intubated on mechanical ventilation and currently is on small dose of norepinephrine. Hemoglobin this morning came in to be at 6.9. At least the endoscopy revealed gastric ulcer. The hemoglobin is below 7. He is in process of receiving a blood transfusion. The EKG showed atrial fibrillation but subsequently the patient converted to normal sinus mechanism. The physical examination is remarkable for intubated patient on mechanical ventilation with unstable hemodynamically requiring vasopressors with regular rate and rhythm and distant heart sounds and diminished breathing sounds bilaterally and no edema was noted in the lower extremities November 15, 2023 The patient was seen and evaluated this morning. He is converted to normal sinus mechanism. He is extubated. He seems to be hemodynamically stable as well. He cannot take any oral medication and with that being said and going to keep the patient on the current dose of amiodarone IV. The echo showed normal LV systolic function. The a chest x-ray showed bilateral infiltrate. The examination is remarkable for regular rhythm with a soft systolic murmur and diminished breathing sounds bilaterally. November 17, 2023 The patient was seen and evaluated this morning. He is maintaining normal sinus mechanism on the current dose of amiodarone. He cannot be on any anticoagulation because of the anemia and gastrointestinal bleeding. Currently is on amiodarone at 400 mg p.o. twice daily. No symptoms of any chest pain or chest discomfort. He underwent yesterday gastric tube placement and also a port placement as well. The physical examination is remarkable for regular rhythm with a soft systolic murmur and diminished breathing sounds bilaterally and no edema was noted in the lower extremities Assessment Anemia likely to be blood loss anemia Acute hypoxic respiratory failure. That has resolved Gastric ulcer Atrial fibrillation of acute illness. The patient currently is maintaining normal sinus mechanism Multiple comorbid conditions Plan Continue the current dose of amiodarone orally Consider tapering down the dose of amiodarone Hold any anticoagulation because of the anemia and gastrointestinal bleeding Follow-up with the patient Objective - Vital Signs Vital signs: Vital Signs Temp 97.5 F L 11/17/23 08:00 Pulse 85 11/17/23 09:00 Resp 23 11/17/23 09:00 BP 149/89 11/17/23 09:00 Pulse Ox 96 11/17/23 08:00 FiO2 40 11/16/23 13:09 Intake & Output 11/16/23 11/17/23 11/17/23 18:59 06:59 18:59 Intake Total 2300 550 0 Output Total 2420 950 100 Balance -120 -400 -100 Weight 102.8 kg Intake: IV 1950 550 0 0.9 @ 50 400 50 Lactated Ringers 1,000 ml 400 0 @ 50 mls/hr IV .Q20H NIRMAL Rx#:[id number] Piperacillin-Tazobactam 3 100 .375 gm In Sodium Chloride 0.9% 100 ml @ 25 mls/hr IVPB Q8HR NIRMAL Rx# :[id number] Sodium Ferric Gluconat- 100 Sucrose 125 mg In Sodium Chloride 0.9% 100 ml @ 100 mls/hr IVPB DAILY NIRMAL Rx#:[id number] Intake, IV Titration 350 Amount Amiodarone 450 mg In 250 Dextrose 5% in Water 250 ml @ 0.5 MG/MIN 16.667 mls/hr IV .Q15H NIRMAL Rx#: [id number] Piperacillin-Tazobactam 3 100 .375 gm In Sodium Chloride 0.9% 100 ml @ 25 mls/hr IVPB Q8HR NIRMAL Rx# :[id number] Output: Gastric Drainage 25 250 Urine 2385 700 100 Estimated Blood Loss 10 Other: Voiding Method Indwelling Catheter Indwelling Catheter Indwelling Catheter - Labs CBC & Chem 7: 11/17/23 05:57 11/17/23 05:57 Labs: Abnormal Lab Results - Last 24 Hours (Table) 11/16/23 11/16/23 11/17/23 Range/Units 14:30 23:42 05:33 RBC (4.30-5.90) m/uL Hgb (13.0-17.5) gm/dL Hct (39.0-53.0) % Neutrophils # (1.3-7.7) k/uL Lymphocytes # (1.0-4.8) k/uL BUN (9-20) mg/dL Glucose (74-99) mg/dL POC Glucose (mg/dL) 152 H 169 H 185 H (70-110) mg/dL Calcium (8.4-10.2) mg/dL 11/17/23 11/17/23 Range/Units 05:57 05:57 RBC 2.96 L (4.30-5.90) m/uL Hgb 7.9 L (13.0-17.5) gm/dL Hct 25.3 L (39.0-53.0) % Neutrophils # 7.8 H (1.3-7.7) k/uL Lymphocytes # 0.8 L (1.0-4.8) k/uL BUN 26 H (9-20) mg/dL Glucose 173 H (74-99) mg/dL POC Glucose (mg/dL) (70-110) mg/dL Calcium 8.3 L (8.4-10.2) mg/dL
--- NOTE | 2023-11-17 11:03 | XR ---
EXAMINATION TYPE: XR chest 1V portable DATE OF EXAM: 11/17/2023 Comparison: 11/16/2023 Clinical History: 73-year-old male PNA follow-up Findings: NG tube courses below the diaphragm. Right anterior chest wall injection port with catheter tip in th e low right atrium. Patient is rotated toward the left ultrasound and normal cardiac and mediastinal contours. Heart likely upper limits of normal in size. Multifocal patchy interstitial opacities persi st. The rotation WAS the appearance compared to the prior exam. Probably overall relatively similar. Impression: The appearance is different from the comparison exam due to patient rotation towards the left. The ov erall diffuse bilateral patchy and interstitial opacities is likely relatively similar. [facility], , 11/17/2023 11:01 AM
--- NOTE | 2023-11-17 11:15 | P.PN ---
Subjective Progress Note Date: 11/17/23 Principal diagnosis: Acute hypoxic respiratory failure requiring intubation mechanical ventilation secondary to aspiration. This is a 73-year-old white male with history of chronic abdominal pain for the last 8 months has been treated with Protonix 40 mg daily for the last 3 months with no improvement. Patient had a 22 pound weight loss in the last [address] of the abdomen and pelvis 3 weeks ago showed thickening of the antral wall with pathological adenopathy posterior to the stomach suspicious of neoplasm. Today the patient underwent elective upper endoscopy to evaluate further, patient received IV sedation by anesthesia endoscope was inserted into the mouth, esop hagus was intubated without any difficulty there was evidence of large amount of liquid and solid food noted in the stomach suggestive of gastric outlet obstruction. Scope could not be advanced through the pylorus, however in the prepyloric area there was a large superficial ulceration identified with multiple biopsies were done from this area. The body cardia and fundus could not adequately visualize because of large amount of retained food in the stomach. Scope was withdrawn back to the stomach and upon careful examination the mucosa of the antrum body and cardia as well as the fundus appeared normal. Procedure was being performed and biopsies were done patient threw up and subsequently became hypoxic there was clearly evidence of witnessed aspiration anesthesia intubated the patient, procedure was terminated, and the patient was transferred to the ICU, this consult was initiated. Patient is now on assist- control rate of 20 tidal volume 500 FiO2 70% PEEP of 10 ABG is pending, earlier ABG showed profound hypoxia patient is on propofol at 50 mcg/kg/min, next ABG is pending. Chest x-ray showed chronic changes without evidence of acute pulmonary disease. Patient was seen and examined today on 11/13/2023, remains in the ICU, intubated mechanically ventilated, on assist-control rate of 20 tidal volume 500 FiO2 50% and PEEP of 10 ABG showed a pO2 of 143 pCO2 47 pH of 7.28 hence PEEP was cut down to 6, and increased rate to 22. Patient is still requiring IV fluid at 100 cc/h/LR. Requiring norepinephrine at 0.08 mcg/kg/min he is also on propofol at 50 mg/kg/min antibiotics arce patient is receiving Zosyn. Chest x-ray is showing worsening infiltrates specially in the left lung. This could be related to aspiration pneumonia. Patient had witnessed aspiration during end oscopy/upper endoscopy.WBC count is 14 hemoglobin 7.6 basic metabolic profile is normal BUN is 26 creatinine 1.57 obviously the patient sustained some acute kidney injury baseline creatinine 0.86 patient had received fluids over the last 24 hours, remains on fluids at 100 cc/h Patient with seen and examined today on 11/14/2023, patient remains in the ICU, intubated and mechanically ventilated. Failed weaning trial yesterday and he became quite agitated and desaturated once he went off propofol. Had to be placed back on assist-control mode of mechanical ventilation and sedation. Today the patient is on assist-control rate of 22 tidal volume 500 FiO2 50% PEEP of 6. ABG showed a pO2 of 123 pCO2 51 pH of 7.32, and I cut down his FiO2 down to 45%, patient is receiving a unit of packed RBCs for hemoglobin of 6.9 today. Patient had an episode of A-fib RVR at 3 AM in the morning, seen by cardiology, and recommended patient goes on amiodarone. Still requiring norepinephrine at 0.05 mg/kg/min, he is on LR at 100 cc/h propofol at 50 mg/kg/min. Remains empirically on Zosyn for aspiration pneumonia. My plan today is transitioning the patient to Precedex, hopefully discontinue propofol, and at least give the patient a decent weaning trial or at least check weaning parameters before we proceed to weaning trial. Chest x-ray continues to show evidence of pneumonia mostly in the left lung and left lower lobe more specifically. Some pulmonary vascular congestion is noted with interstitial edema, small pleural effusion is also noted/left side. WBC count today is 12 hemoglobin 6.9 basic metabolic profile is normal bicarb is 25, BUN is 25 creatinine is improving down to 1.21 from 1.57 yesterday Patient was evaluated today on 11/15/2023, patient remains in the ICU, he was extubated yesterday, and his extubation was relatively uneventful. However the patient continues to have nasogastric tube in place, his pathology report came back showing non-Hodgkin's lymphoma, patient has gastric outlet obstruction, and the recommendation by GI is to consult surgery for a jejunostomy tube which is appropriate. Patient will be seen today by oncology and he will be seen by general surgery. In the meantime patient is comfortable, he is on 5 L nasal cannula he has LR running at 100 cc/h, he is remains on Zosyn for aspiration pneumonia remains on amiodarone which was started by cardiology for atrial fibrillation with RVR, presently in sinus rhythm. Cannot switch him to oral because of the fact that remains n.p.o., patient remains on TPN. WBC count is 10.7 hemoglobin 7.5 electrolytes are normal renal profile is normal, creatinine normalized to 0.96 Patient was evaluated today on 11/16/2023, remains in the ICU, on 5 L nasal cannula remains on amiodarone at 0.5 mg/min remains on LR at 100 cc/h, however his chest x-ray is showing some component of interstitial edema or could be findings related to his recent episode of aspiration/aspiration pneumonia, nonetheless the patient seems to be a bit symptomatic, he has intermittent cough and wheezing, I am recommending Lasix 40 mg IV push, cut down his IV fluid to 50 cc/h, continue Zosyn, patient will be placed on DuoNeb updrafts and on Solu- Medrol. Patient is scheduled to have jejunostomy-tube placement today. WBC count is 13 hemoglobin 7.7 basic metabolic profile is normal and renal profile is normal Patient was evaluated today on 11/17/2023, patient underwent uneventful placement of a jejunostomy tube yesterday, in the ICU on 5 L, patient is relatively stable, not in any distress, patient continues to have nasogastric tube in place although he did have a J-tube placed yesterday. Patient was seen by oncology for his non-Hodgkin's lymphoma involving the gastric outlet. Today's x-ray showed evidence of pneumonia/bilateral interstitial infiltrate/edema patient was given a dose of Lasix, I reminded the patient had an aspiration episode which was significant. And he required intubation mechanical ventilation for a few days.WBC count today is 9.1 hemoglobin 7.9 electrolytes are normal renal profile is normal hence I plan to transfer the patient out of the ICU to a cardiac floor. And hopefully discharge planning in the next 2 days for Objective - Vital Signs Vital signs: Vital Signs Temp 97.5 F L 11/17/23 08:00 Pulse 85 11/17/23 11:05 Resp 23 11/17/23 09:00 BP 149/89 11/17/23 09:00 Pulse Ox 96 11/17/23 08:00 FiO2 40 11/16/23 13:09 Intake & Output 11/16/23 11/17/23 11/17/23 18:59 06:59 18:59 Intake Total 2300 550 100 Output Total 2420 950 900 Balance -120 -400 -800 Weight 102.8 kg Intake: IV 1950 550 100 0.9 @ 50 400 50 Lactated Ringers 1,000 ml 400 0 @ 50 mls/hr IV .Q20H NIRMAL Rx#:[id number] Piperacillin-Tazobactam 3 100 .375 gm In Sodium Chloride 0.9% 100 ml @ 25 mls/hr IVPB Q8HR NIRMAL Rx# :[id number] Sodium Ferric Gluconat- 100 100 Sucrose 125 mg In Sodium Chloride 0.9% 100 ml @ 100 mls/hr IVPB DAILY NIRMAL Rx#:[id number] Intake, IV Titration 350 Amount Amiodarone 450 mg In 250 Dextrose 5% in Water 250 ml @ 0.5 MG/MIN 16.667 mls/hr IV .Q15H NIRMAL Rx#: [id number] Piperacillin-Tazobactam 3 100 .375 gm In Sodium Chloride 0.9% 100 ml @ 25 mls/hr IVPB Q8HR NIRMAL Rx# :[id number] Output: Gastric Drainage 25 250 Urine 2385 700 900 Estimated Blood Loss 10 Other: Voiding Method Indwelling Catheter Indwelling Catheter Indwelling Catheter - Exam General: Revealed 73-year-old white male on 5 L nasal cannula, not in any dis tress Skin: Skin is warm and dry and no rashes or lesions are noted. Eye: Pupils are equal, round and reactive to light, extra-ocular movements are intact; there is normal conjunctiva bilaterally. Ears, nose, mouth and throat: There are moist mucous membranes and no oral lesions. Neck: The neck is supple, there is no tenderness or JVD. Cardiovascular: There is a regular rate and rhythm. No murmur, rub or gallop is appreciated. Respiratory: Scattered rhonchi and wheezing noted bilaterally Gastrointestinal: Soft, non-distended, non-tender abdomen without masses or organomegaly noted. There is no rebound or guarding present. Bowel sounds are unremarkable. J-tube is noted Musculoskeletal: No deformities and no limitation range of motion Neurological: Alert and oriented x 3 no gross focal neurologic deficit Psychiatric: Normal mood normal affect and normal mental status examination - Labs CBC & Chem 7: 11/17/23 05:57 11/17/23 05:57 Labs: Abnormal Lab Results - Last 24 Hours (Table) 11/16/23 11/16/23 11/17/23 Range/Units 14:30 23:42 05:33 RBC (4.30-5.90) m/uL Hgb (13.0-17.5) gm/dL Hct (39.0-53.0) % Neutrophils # (1.3-7.7) k/uL Lymphocytes # (1.0-4.8) k/uL BUN (9-20) mg/dL Glucose (74-99) mg/dL POC Glucose (mg/dL) 152 H 169 H 185 H (70-110) mg/dL Calcium (8.4-10.2) mg/dL 11/17/23 11/17/23 Range/Units 05:57 05:57 RBC 2.96 L (4.30-5.90) m/uL Hgb 7.9 L (13.0-17.5) gm/dL Hct 25.3 L (39.0-53.0) % Neutrophils # 7.8 H (1.3-7.7) k/uL Lymphocytes # 0.8 L (1.0-4.8) k/uL BUN 26 H (9-20) mg/dL Glucose 173 H (74-99) mg/dL POC Glucose (mg/dL) (70-110) mg/dL Calcium 8.3 L (8.4-10.2) mg/dL Assessment and Plan Assessment: Impression: Acute hypoxic respiratory failure requiring intubation mechanical ventilation secondary to aspiration. Patient was extubated on 11/14/2023 and tolerated the extubation well. Status post J-tube placement 11/16/2023, postoperative day #1 Acute aspiration pneumonia Acute aspiration during upper endoscopy most likely secondary to gastric outlet obstruction secondary to non-Hodgkin's lymphoma based on the pathology from stomach biopsies Chronic abdominal pain, secondary to lymphoma Unexplained weight loss most likely secondary non-Hodgkin's lymphoma involving the stomach Paroxysmal atrial fibrillation, addressed by cardiology Recommendation: Considering her chest x-ray, and his O2 saturations are marginal, patient received Lasix 40 mg IV push this morning Place patient on bronchodilators/DuoNeb and Solu-Medrol for his wheezing today. Patient has been seen by surgery and by oncology, [place] tube has been placed, and he is to follow-up with oncology on outpatient basis for treatment of his non- Hodgkin's lymphoma Transfer to cardiac floor Continue TPN, until we can utilize his J-tube/enteral feeding Continue Zosyn for aspiration pneumonia GI and DVT prophylaxis Will continue to follow Time with Patient: Less than 30
--- NOTE | 2023-11-17 12:45 | P.PN ---
Progress Note - Text Progress Note Date: 11/17/23 Chief Complaint: Aspirated This is a 73-year-old patient, follows with Dr. Patricia Deal. Patient was seen this morning in the ICU. Patient's and daughter at the bedside. History obtained predominantly by the . Patient been having trouble with his stomach symptoms for close to 8 months. Patient underwent EGD by Dr. Sahara Cheng yesterday. Patient was found to have ulcerated around the antrum and obstruction to the pylorus. A lot of retained food was found. Patient aspirated. Had to be intubated and brought to the ICU. On a Levophed drip. FiO2 50 and a PEEP of 6. Patient had been losing weight lost about 25 pounds. Previously has a history of mitral valve prolapse. November 13: ICU. Patient remains on Precedex drip and propofol drip. Did not do well attempted extubation yesterday. Patient been off Levophed. NG tube to suction. Spoke to patient's and son at the bedside. Biopsy results awaited. Hemoglobin dropped to 6.9 this morning. Get a unit of blood. November 14: ICU. Up in a chair. Extubated yesterday. NG tube to suction. at the bedside. 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 Oncology was consulted. They have ordered a port. Results discussed with Dr. Sahara Cheng. General surgery was consulted for J-tube placement. Discussed with at the bedside. Patient getting IV fluids, IV Zosyn,. Patient has been on IV amiodarone for A-fib-back in sinus rhythm. Multiple PACs. Did receive unit of blood yesterday. Also IV ferric gluconate. November 15: ICU. Patient earlier today underwent jejunostomy tube placement and a port placement. Patient awake. Answering questions. NG tube to suction present. Updated patient's . Patient remains on IV amiodarone and IV Zosyn. November 16: ICU. Up in the chair. NG tube present but not to suction. Trickle feeding through the jejunostomy tube should be started today. Dietitian has been on board. IV Zosyn to continue. Patient's and his sister at the bedside. Discussed. Also spoke with Dr. Serna. Given patient has no other predisposing cardiac factors for the A-fib except acute illness. His LV function is normal. Left atrium is normal. He has already been loaded with IV amiodarone. Will switch him to oral Lopressor 12.5 twice daily. Hence will DC amiodarone. Patient yesterday had wheezing was put on bronchodilators steroids per pulmonary. Active Medications Albuterol/Ipratropium (Ipratropium-Albuterol 3 Ml Neb) 3 ml INHALATION RT-QID NIRAML Last Admin: 11/17/23 10:55 Dose: 3 ml Dextrose/Water (Dextrose 50% Syringe 50 Ml) 25 ml IVP PER PROTOCOL PRN; Protocol PRN Reason: Hypoglycemia Dextrose/Water (Dextrose 50% Syringe 50 Ml) 50 ml IVP PER PROTOCOL PRN; Protocol PRN Reason: Hypoglycemia Hydromorphone HCl (Hydromorphone 0.5 Mg/0.5 Ml Syringe) 0.5 mg IVP Q3HR PRN PRN Reason: Pain Last Admin: 11/17/23 10:43 Dose: 0.5 mg Piperacillin Sod/Tazobactam (Sod 3.375 gm/ Sodium Chloride) 100 mls @ 25 mls/hr IVPB Q8HR NIRMAL; Protocol Last Admin: 11/17/23 08:54 Dose: 25 mls/hr Ferric Sodium Gluconate 125 mg (/ Sodium Chloride) 110 mls @ 100 mls/hr IVPB DAILY [facility] Stop: 11/18/23 10:05 Last Admin: 11/17/23 08:54 Dose: 100 mls/hr Insulin Aspart (Insulin Aspart (Novolog) 100 Unit/Ml Vial) 0 unit SQ ACHS NIRMAL; Protocol Lidocaine HCl (Lidocaine 1% (10mg/Ml) For Iv Start) 0.1 ml INTRADERMA PER PROTOCOL PRN PRN Reason: IV Start Stop: 12/12/23 05:39 Methylprednisolone Sodium Succinate (Methylprednisolone Sod Succi 40 Mg/Ml 1 Ml Vial) 40 mg IV Q8HR [facility] Last Admin: 11/17/23 08:54 Dose: 40 mg Metoprolol Tartrate (Metoprolol Tartrate 12.5 Mg Tab) 12.5 mg PO BID [facility] Miscellaneous Information (Magnesium Replacement Protocol 1 Each Misc) 1 each MISCELLANE DAILY PRN; Protocol PRN Reason: Per Protocol Naloxone HCl (Naloxone 0.4 Mg/Ml 1 Ml Vial) 0.2 mg IV Q2M PRN PRN Reason: Opioid Reversal Pantoprazole Sodium (Pantoprazole 40 Mg/10 Ml Vial) 40 mg IVP BID NIRMAL Last Admin: 11/17/23 08:54 Dose: 40 mg Past medical history to include: GERD Social history: . No smoking. Physical examination: VITAL SIGNS: 97.5, 85, 20, 149 and 89, 96% on 5 L GENERAL: In a recliner. Awake comfortable. Right chest wall port EYES: Pupils equal. Conjunctiva edouard l. HEENT: External appearance of nose and ears normal, oral cavity grossly normal. NG tube NECK: JVD unable to assess; masses not palpable. HEART: First and second heart sounds are normal; no edema. LUNGS: Respiratory rate increased, mild expiratory wheezing ABDOMEN: Soft, nontender, liver spleen not palpable, no masses palp able..jejunostomy tube. PSYCH: Awake answering questions INVESTIGATIONS, reviewed in the clinical context: November 16: White count 9.1 hemoglobin 7.9 platelets 259 potassium 4.3 creatinine 0.92 November 15: WBC 13 hemoglobin 7.7 platelets 248 potassium 4.3 creatinine 0.87 2D echo: EF 55 to 60%. November 14: White count 10.7 hemoglobin 7.5 platelets 239 potassium 4.2 creatinine 0.96 Kidneys bladder: Unremarkable November 13: White count 12 hemoglobin 6.9 platelets 276 potassium 4.4 creatinine 1.21 magnesium 1.8 iron 6 TIBC 365% saturation 1.64 transferrin 261 ferritin 34.6 B12 569 folate 4.4 November 12: White count 14 hemoglobin 7.6 platelets 333 sodium 136 BUN 26 creatinine 1.57 November 11: Creatinine 0.86 EGD: Large amount of retained solid liquid food noted in the stomach. Large superficial gastric antral ulceration involving most of the antrum extending into the pylorus causing pyloric stenosis. Biopsies were obtained. Chest x-ray film personally reviewed by me-scattered infiltrates Assessment plan: -Aspiration pneumonitis bilateral from retained gastric contents mostly food and liquids, causing acute hypoxic respiratory failure: IV Zosyn -Acute kidney injury. Possible ATN from hypotensive shock: Corrected Strict I's and O's. Follow renal function. Renal ultrasound unremarkable Seen by nephrology. IV fluids. I's and O's. -Nutrition Jejunostomy tube placed November [address] Kaylin mckeon. Dietitian consulted -Paroxysmal atrial fibrillation-sinus rhythm IV amiodarone. Discussed with Dr. Serna from cardiology. Stop amiodarone. Lopressor 12.5 twice daily -Acute hypoxic respiratory failure from aspiration pneumonia, status post ventilator assisted: Slow to improve Now 5 L nasal cannula Incentive spirometry -Normocytic anemia likely o secondary underlying lymphoma Iron deficiency anemia Received a unit of blood. IV iron. -Acute blood loss anemia, could be oozing from biopsy site in the stomach Received blood -GERD PPI -Large superficial gastric antral ulceration involving the gastric antrum extending into the pylorus with gastric outlet obstruction. 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 Port placed -Full code Stop amiodarone. Lopressor 12.5 twice daily. Incentive spirometry. Discussed with patient at the bedside. Trickle feeding to be started through J-tube Past Medical History Past Medical History: GERD/Reflux History of Any Multi-Drug Resistant Organisms: None Reported Past Surgical History: Heart Catheterization Additional Past Surgical History / Comment(s): colonsocopy,spinal injection, Past Anesthesia/Blood Transfusion Reactions: No Reported Reaction Past Psychological History: No Psychological Hx Reported Smoking Status: Never smoker Past Alcohol Use History: None Reported Past Drug Use History: None Reported
[2023-11-17 13:29] LABS: Glucose,Whole Blood 173 mg/dL (70-110)
[2023-11-17] MEDS: METOPROLOL TARTRATE 12.5 MG TAB PO SCH (13:31)
[2023-11-17] MEDS: INSULIN ASPART (NovoLOG) 100 UNIT/ML VIAL SQ SCH (17:58)
[2023-11-17 18:18] LABS: Glucose,Whole Blood 165 mg/dL (70-110)
[2023-11-17 20:17] LABS: Glucose,Whole Blood 151 mg/dL (70-110)
[2023-11-18 06:40] LABS: Glucose,Whole Blood 177 mg/dL (70-110)
--- NOTE | 2023-11-18 08:00 | P.PN ---
Progress Note - Text Progress Note Date: 11/18/23 RAGHAV. Patient is resting comfortable in bed. VSS General-NAD Abdomen-soft, incsiional TTP, ND, Jejunostomy Tube in place 73 year old male POD #2 Mediport Insertion and [place]itz[place] Feeding Jejunostomy Placement -Advance Tube Feeds to Goal -Tube Bender Hand recs for feeding formula and TF goals -pain and nausea control -ICU care Dick Ewing DO [facility] [phone]
[2023-11-18 11:38] LABS: Glucose,Whole Blood 145 mg/dL (70-110)
--- NOTE | 2023-11-18 11:39 | P.PN ---
Subjective Progress Note Date: 11/18/23 This is a 73-year-old white male with history of chronic abdominal pain for the last 8 months has been treated with Protonix 40 mg daily for the last 3 months with no improvement. Patient had a 22 pound weight loss in the last [address] of the abdomen and pelvis 3 weeks ago showed thickening of the antral wall with pathological adenopathy posterior to the stomach suspicious of neoplasm. Today the patient underwent elective upper endoscopy to evaluate further, patient received IV sedation by anesthesia endoscope was inserted into the mouth, esophagus was intubated without any difficulty there was evidence of large amount of liquid and solid food noted in the stomach suggestive of gastric outlet obstruction. Scope could not be advanced through the pylorus, however in the prepyloric area there was a large superficial ulceration identified with multiple biopsies were done from this area. The body cardia and fundus could not adequately visualize because of large amount of retained food in the stomach. Scope was withdrawn back to the stomach and upon careful examination the mucosa of the antrum body and cardia as well as the fundus appeared normal. Procedure was being performed and biopsies were done patient threw up and subsequently became hypoxic there was clearly evidence of witnessed aspiration anesthesia intubated the patient, procedure was terminated, and the patient was transferred to the ICU, this consult was initiated. Patient is now on assist- control rate of 20 tidal volume 500 FiO2 70% PEEP of 10 ABG is pending, earlier ABG showed profound hypoxia patient is on propofol at 50 mcg/kg/min, next ABG is pending. Chest x-ray showed chronic changes without evidence of acute pulmonary disease. Patient was seen and examined today on 11/13/2023, remains in the ICU, intubated mechanically ventilated, on assist-control rate of 20 tidal volume 500 FiO2 50% and PEEP of 10 ABG showed a pO2 of 143 pCO2 47 pH of 7.28 hence PEEP was cut down to 6, and increased rate to 22. Patient is still requiring IV fluid at 100 cc/h/LR. Requiring norepinephrine at 0.08 mcg/kg/min he is also on propofol at 50 mg/kg/min antibiotics arce patient is receiving Zosyn. Chest x-ray is sh owing worsening infiltrates specially in the left lung. This could be related to aspiration pneumonia. Patient had witnessed aspiration during endoscopy/upper endoscopy.WBC count is 14 hemoglobin 7.6 basic metabolic profile is normal BUN is 26 creatinine 1.57 obviously the patient sustained some acute kidney injury baseline creatinine 0.86 patient had received fluids over the last 24 hours, remains on fluids at 100 cc/h Patient with seen and examined today on 11/14/2023, patient remains in the ICU, intubated and mechanically ventilated. Failed weaning trial yesterday and he became quite agitated and desaturated once he went off propofol. Had to be placed back on assist-control mode of mechanical ventilation and sedation. Today the patient is on assist-control rate of 22 tidal volume 500 FiO2 50% PEEP of 6. ABG showed a pO2 of 123 pCO2 51 pH of 7.32, and I cut down his FiO2 down to 45%, patient is receiving a unit of packed RBCs for hemoglobin of 6.9 today. Patient had an episode of A-fib RVR at 3 AM in the morning, seen by cardiology, and recommended patient goes on amiodarone. Still requiring norepinephrine at 0.05 mg/kg/min, he is on LR at 100 cc/h propofol at 50 mg/kg/min. Remains empirically on Zosyn for aspiration pneumonia. My plan today is transitioning the patient to Precedex, hopefully discontinue propofol, and at least give the patient a decent weaning trial or at least check weaning parameters before we proceed to weaning trial. Chest x-ray continues to show evidence of pneumonia mostly in the left lung and left lower lobe more specifically. Some pulmonary vascular congestion is noted with interstitial edema, small pleural effusion is also noted/left side. WBC count today is 12 hemoglobin 6.9 basic metabolic profile is normal bicarb is 25, BUN is 25 creatinine is improving down to 1.21 from 1.57 yesterday Patient was evaluated today on 11/15/2023, patient remains in the ICU, he was extubated yesterday, and his extubation was relatively uneventful. However the patient continues to have nasogastric tube in place, his pathology report came back showing non-Hodgkin's lymphoma, patient has gastric outlet obstruction, and the recommendation by GI is to consult surgery for a jejunostomy tube which is appropriate. Patient will be seen today by oncology and he will be seen by general surgery. In the meantime patient is comfortable, he is on 5 L nasal cannula he has LR running at 100 cc/h, he is remains on Zosyn for aspiration pneumonia remains on amiodarone which was started by cardiology for atrial fibrillation with RVR, presently in sinus rhythm. Cannot switch him to oral because of the fact that remains n.p.o., patient remains on TPN. WBC count is 10.7 hemoglobin 7.5 electrolytes are normal renal profile is normal, creatinine normalized to 0.96 Patient was evaluated today on 11/16/2023, remains in the ICU, on 5 L nasal cannula remains on amiodarone at 0.5 mg/min remains on LR at 100 cc/h, however his chest x-ray is showing some component of interstitial edema or could be findings related to his recent episode of aspiration/aspiration pneumonia, nonetheless the patient seems to be a bit symptomatic, he has intermittent cough and wheezing, I am recommending Lasix 40 mg IV push, cut down his IV fluid to 50 cc/h, continue Zosyn, patient will be placed on DuoNeb updrafts and on Solu- Medrol. Patient is scheduled to have jejunostomy-tube placement today. WBC count is 13 hemoglobin 7.7 basic metabolic profile is normal and renal profile is normal Patient was evaluated today on 11/17/2023, patient underwent uneventful placement of a jejunostomy tube yesterday, in the ICU on 5 L, patient is relatively stable, not in any distress, patient continues to have nasogastric tube in place although he did have a J-tube placed yesterday. Patient was seen by oncology for his non-Hodgkin's lymphoma involving the gastric outlet. Today's x-ray showed evidence of pneumonia/bilateral interstitial infiltrate/edema patient was given a dose of Lasix, I reminded the patient had an aspiration episode which was significant. And he required intubation mechanical ventilation for a few days.WBC count today is 9.1 hemoglobin 7.9 electrolytes are normal renal profile is normal hence I plan to transfer the patient out of the ICU to a cardiac floor. And hopefully discharge planning in the next 2 days for The patient was seen today November 18, 2023 in follow-up in the intensive care unit. He is currently sitting up in bed. Awake and alert in no acute distress. He is maintaining O2 saturations in the 90s on 5 L/min per nasal cannula. Glucose 177. Remains on DuoNeb inhalations and Solu-Medrol. Antibiotics in the form of Zosyn. He has a J-tube in place. He was initiated on vital AF 1.2 at 10 mL an hour with a goal of 82 mL/h Objective - Vital Signs Vital signs: Vital Signs Temp 98 F 11/18/23 09:00 Pulse 64 11/18/23 11:18 Resp 18 11/18/23 11:18 BP 128/85 11/18/23 10:00 Pulse Ox 95 11/18/23 10:00 FiO2 40 11/16/23 13:09 Intake & Output 11/17/23 11/18/23 11/18/23 18:59 06:59 18:59 Intake Total 100 100 Output Total 1300 901 276 Balance -1200 -801 -276 Weight 100.8 kg Intake: IV 100 100 Lactated Ringers 1,000 ml 0 @ 50 mls/hr IV .Q20H [facility] Rx#:[id number] Piperacillin-Tazobactam 3 100 .375 gm In Sodium Chloride 0.9% 100 ml @ 25 mls/hr IVPB Q8HR [facility] Rx# :[id number] Sodium Ferric Gluconat- 100 Sucrose 125 mg In Sodium Chloride 0.9% 100 ml @ 100 mls/hr IVPB DAILY [facility] Rx#:[id number] Output: Urine 1300 800 275 Post Void Residual 101 Stool 1 Other: Voiding Method Urinal Urinal Urinal # Voids 1 1 # Bowel Movements 1 - Exam GENERAL EXAM: Alert, pleasant 73-year-old male, on 5 L nasal cannula, comfortable in no apparent distress. HEAD: Normocephalic. EYES: Normal reaction of pupils, equal size. NOSE: Clear with pink turbinates. THROAT: No erythema or exudates. NECK: No masses, no JVD. CHEST: No chest wall deformity. LUNGS: Equal air entry with few scattered rhonchi. CVS: S1 and S2 normal with no audible murmur, regular rhythm. ABDOMEN: J-tube exit site clean and dry. No hepatosplenomegaly, normal bowel sounds, no guarding or rigidity. SPINE: No scoliosis or deformity SKIN: No rashes CENTRAL NERVOUS SYSTEM: No focal deficits, tone is normal in all 4 extremities. EXTREMITIES: There is no peripheral edema. No clubbing, no cyanosis. Peripheral pulses are intact. - Labs CBC & Chem 7: 11/17/23 05:57 11/17/23 05:57 Labs: Abnormal Lab Results - Last 24 Hours (Table) 11/14/23 11/17/23 11/17/23 Range/Units 05:52 13:27 18:16 POC Glucose (mg/dL) 173 H 165 H (70-110) mg/dL Crossmatch See Detail 11/17/23 11/18/23 Range/Units 20:16 06:39 POC Glucose (mg/dL) 151 H 177 H (70-110) mg/dL Crossmatch Assessment and Plan Assessment: Acute hypoxic respiratory failure requiring intubation mechanical ventilation secondary to aspiration during EGD on 11/12/2023. Patient was extubated on 11/14/2023 and tolerated the extubation well Status post J-tube placement 11/16/2023, postoperative day #2 Acute aspiration pneumonia Acute aspiration during upper endoscopy most likely secondary to gastric outlet obstruction secondary to non-Hodgkin's lymphoma based on the pathology from stomach biopsies Chronic abdominal pain, secondary to lymphoma Unexplained weight loss most likely secondary non-Hodgkin's lymphoma involving the stomach Paroxysmal atrial fibrillation, addressed by cardiology Plan: The patient was seen and evaluated Labs and medications reviewed Continue DuoNeb inhalations, Solu-Medrol Check a procalcitonin Continue J-tube feedings Titrate down the FiO2 as tolerated Check a procalcitonin Plan is for outpatient PET scan Following with medical oncology We will continue to follow I have personally seen and examined the patient, performed the documentation and the assessment and plan as written. Number of minutes spent on the visit: 10.
--- NOTE | 2023-11-18 14:35 | P.PN ---
Subjective Progress Note Date: 11/18/23 Principal diagnosis: Aspiration 73-year-old male who is scheduled for outpatient upper endoscopy for complaints of chronic epigastric pain over the last 8 months duration and weight loss of 22 pounds over the last 4 months duration. Today he underwent upper endoscopy today and was found to have large amount of retained food in his stomach with evidence of large superficial gastric antral ulcer involving most of the antrum extending into the pylorus causing pyloric stenosis. Scope could not be advanced any further through the pylorus suggestive of gastric outlet obstructi on. Multiple biopsies were done from the gastric antral ulceration. During this process patient had aspirated and had a drop in his oxygen saturation and needed to be intubated per anesthesia. He was s admitted to the hospital and transferred to the to the ICU currently remains intubated with NG tube placed with about 200 cc of gastric output. 11/13/2023 Patient remains in the ICU sedated and intubated on mechanical ventilation. Family at the bedside. Had approximately 6-700 output of the NG tube since yesterday until this morning. Currently no output at this time. Chest x-ray reports perihilar increased density may reflect developing infiltrate. Patient has been afebrile. 11/14/2023 Patient seen and examined today as a follow-up. He remains in the ICU sedated and mechanical ventilation. Weaning trial yesterday was stopped as patient was not tolerating it well. Clear liquid through the NG tube was not trialed as patient was restless. Supposed to do another sedation holiday and weaning trial today. Patient is having minimal output from the NG tube. He has been afebrile . 11/15/2023 Patient is seen and examined today as a follow-up. He remains in the ICU. He was extubated yesterday evening, patient's daughter and at the bedside. He is somewhat confused and they state that trying to get out of bed and pull out his NG tube. Not much coming from the NG tube yesterday or through the night. Biopsies from EGD gastric ulcer positive for high-grade non-Hodgkin's diffuse large B-cell lymphoma, non-germinal center activated B-cell type. Results discussed with peter saxena and his family. Today's labs WBC 10.7 hemoglobin 7.5 platelet count 239,000 sodium 138 potassium 4.2 BUN 7 creatinine 2.0 magnesium 1.9 11/18/2023 Patient seen and examined today in the ICU. He is actually downgraded to cardiac stepdown unit however they did not have a bed. He is awake and alert. Denies any abdominal pain, nausea or vomiting. NG tube has been removed. He is on 5 L of nasal cannula. He was seen by general surgery and J-tube and Mediport placed 11/16/2023. He currently has tube feedings to goal. Objective - Vital Signs Vital signs: Vital Signs Temp 98.2 F 11/18/23 08:19 Pulse 89 11/18/23 08:19 Resp 20 11/18/23 08:19 BP 128/85 11/18/23 08:19 Pulse Ox 94 L 11/18/23 08:19 FiO2 40 11/16/23 13:09 Intake & Output 11/17/23 11/18/23 11/18/23 18:59 06:59 18:59 Intake Total 100 100 Output Total 1300 901 Balance -1200 -801 Weight 100.8 kg Intake: IV 100 100 Lactated Ringers 1,000 ml 0 @ 50 mls/hr IV .Q20H [facility] Rx#:[id number] Piperacillin-Tazobactam 3 100 .375 gm In Sodium Chloride 0.9% 100 ml @ 25 mls/hr IVPB Q8HR [facility] Rx# :[id number] Sodium Ferric Gluconat- 100 Sucrose 125 mg In Sodium Chloride 0.9% 100 ml @ 100 mls/hr IVPB DAILY [facility] Rx#:[id number] Output: Urine 1300 800 Post Void Residual 101 Other: Voiding Method Urinal Urinal # Voids 1 - Exam General appearance: The patient is alert and oriented. Appears in no acute distress. HET: Head is normocephalic and atraumatic. Neck: Supple without lymphadenopathy. Abdomen: Soft, J-tube in place, nontender nondistended. Extremities: Normal skin color and turgor. No pedal edema Skin: No rashes, no jaundice Neurological: Alert and oriented. - Labs CBC & Chem 7: 11/17/23 05:57 11/17/23 05:57 Labs: Abnormal Lab Results - Last 24 Hours (Table) 11/14/23 11/17/23 11/17/23 Range/Units 05:52 13:27 18:16 POC Glucose (mg/dL) 173 H 165 H (70-110) mg/dL Crossmatch See Detail 11/17/23 11/18/23 Range/Units 20:16 06:39 POC Glucose (mg/dL) 151 H 177 H (70-110) mg/dL Crossmatch Assessment and Plan (1) Gastric outlet obstruction Narrative/Plan: 73-year-old scheduled for outpatient procedure found to have significant amount of retained solid and liquid food in the stomach and also noted of large antral ulcer. This is a patient that was being worked up for chronic epigastric pain and unintentional weight loss. During procedure patient he had aspirated subsequently needing intubation and was admitted to the ICU for further evaluation. NG tube is placed with 200 mL of gastric output including food and liquid. Will continue to follow and await biopsy report report Current Visit: Yes Status: Acute Priority: High Code(s): K31.1 - ADULT H YPERTROPHIC PYLORIC STENOSIS SNOMED Code(s): 419819148 (2) Aspiration into airway Narrative/Plan: Acute hypoxic respiratory failure requiring intubation and mechanical ventilation secondary to above resolved Current Visit: Yes Status: Acute Priority: High Code(s): T17.908A - UNSP FB IN RESP TRACT, PART UNSP CAUSING OTH INJURY, INIT SNOMED Code(s): 520610000 (3) Gastric ulcer Narrative/Plan: Biopsy positive for high-grade non-Hodgkin's diffuse large B cell lymphoma General surgery following, J-tube and port placed. Oncology following. Current Visit: Yes Status: Acute Priority: High Code(s): K25.9 - GASTRIC ULCER, UNSP ACUTE OR CHRONIC, W/O HEMOR OR PERF SNOMED Code(s): 373233185 (4) Epigastric pain Current Visit: Yes Status: Acute Code(s): R10.13 - EPIGASTRIC PAIN SNOMED Code(s): 68819434 (5) Unintentional weight loss Current Visit: Yes Status: Acute Code(s): R63.4 - ABNORMAL WEIGHT LOSS SNOMED Code(s): 292221099 Plan: 1. Continue symptomatic and supportive care 2. Keep n.p.o. 3. Protonix 40 mg daily for GI prophylaxis 4. Rest of medical management per primary medical team 5. Patient not need to follow-up with gastroenterology at this time. Oncology will recommend outpatient follow-up when needed Thank you for this consultation, patient is cleared from gastroenterology. We will sign off at this time. Dr. Sahara Cheng I agree with the dictator's note, documented as a scribe by Leslee Estes.
--- NOTE | 2023-11-18 15:05 | P.PN ---
Subjective Progress Note Date: 11/18/23 No acute events. Reporting he is feeling improved. Tube feedings start, tolerating them well. Denies n/v. Objective - Vital Signs Vital signs: Vital Signs Temp 98 F 11/18/23 09:00 Pulse 68 11/18/23 10:00 Resp 21 11/18/23 10:00 BP 128/85 11/18/23 10:00 Pulse Ox 95 11/18/23 10:00 FiO2 40 11/16/23 13:09 Intake & Output 11/17/23 11/18/23 11/18/23 18:59 06:59 18:59 Intake Total 100 100 Output Total 1300 901 276 Balance -1200 -801 -276 Weight 100.8 kg Intake: IV 100 100 Lactated Ringers 1,000 ml 0 @ 50 mls/hr IV .Q20H [facility] Rx#:[id number] Piperacillin-Tazobactam 3 100 .375 gm In Sodium Chloride 0.9% 100 ml @ 25 mls/hr IVPB Q8HR [facility] Rx# :[id number] Sodium Ferric Gluconat- 100 Sucrose 125 mg In Sodium Chloride 0.9% 100 ml @ 100 mls/hr IVPB DAILY [facility] Rx#:[id number] Output: Urine 1300 800 275 Post Void Residual 101 Stool 1 Other: Voiding Method Urinal Urinal Urinal # Voids 1 1 # Bowel Movements 1 - Constitutional General appearance: Present: no acute distress - EENT Eyes: Present: anicteric sclerae, EOMI ENT: Present: hearing grossly normal - Respiratory Details: breathing is even and unlabored - Cardiovascular Details: skin warm and dry - Integumentary Integumentary: Present: pale. Absent: cyanotic - Musculoskeletal Musculoskeletal: Present: strength equal bilaterally - Psychiatric Psychiatric: Present: A&O x's 3 - Labs CBC & Chem 7: 11/17/23 05:57 11/17/23 05:57 Labs: Abnormal Lab Results - Last 24 Hours (Table) 11/14/23 11/17/23 11/17/23 Range/Units 05:52 13:27 18:16 POC Glucose (mg/dL) 173 H 165 H (70-110) mg/dL Crossmatch See Detail 11/17/23 11/18/23 Range/Units 20:16 06:39 POC Glucose (mg/dL) 151 H 177 H (70-110) mg/dL Crossmatch Assessment and Plan (1) Large B-cell lymphoma Current Visit: Yes Status: Acute Priority: High Code(s): C85.10 - UNSPECIFIED B-CELL LYMPHOMA, UNSPECIFIED SITE SNOMED Code(s): 188269709 (2) Aspiration into airway Current Visit: Yes Status: Acute Priority: High Code(s): T17.908A - UNSP FB IN RESP TRACT, PART UNSP CAUSING OTH INJURY, INIT SNOMED Code(s): 438068819 (3) Gastric outlet obstruction Current Visit: Yes Status: Acute Priority: High Code(s): K31.1 - ADULT HYPERTROPHIC PYLORIC STENOSIS SNOMED Code(s): 808738046 (4) Gastric ulcer Current Visit: Yes Status: Acute Priority: High Code(s): K25.9 - GASTRIC ULCER, UNSP ACUTE OR CHRONIC, W/O HEMOR OR PERF SNOMED Code(s): 968842746 (5) Iron deficiency anemia Current Visit: Yes Status: Acute Priority: High Code(s): D50.9 - IRON DEFICIENCY ANEMIA, UNSPECIFIED SNOMED Code(s): 45792810 Plan: Large B cell lymphoma: Patient was scheduled for outpatient upper EGD with Dr. Cheng, for complaints of chronic epigastric pain over the last 8 months with a 20 lb weight loss over the last 4 months. -Underwent EGD on On 11/12/2023 revealing revealing a large superficial gastric antral ulceration involving most of the antrum. Multiple biopsies obtained. The antral ulceration was extending to the pylorus causing pyloric stenosis and gastric outlet obstruction. -Pathology was positive for high-grade non-Hodgkin's diffuse large B-cell lymphoma, non-germinal center activated B-cell type -FISH testing for MYC, BCL2 and BCL6 pending -S/p J-tube and medi-port placement. Tolerating tube feedings -Will plan for PET CT in the outpt setting Discussed diagnosis and plan in detail with patient and family. All questions and concerns were addressed Iron deficiency anemia: -S/p 1 unit PRBCs -Anemia labs revealed iron saturation 1.6%, ferritin 34.6, vitamin B12 569, folate 4.4 -Parenteral iron ordered -Hgb 7.9 today -Continue to monitor CBC. Transfuse for hgb <7 or if symptomatic
--- NOTE | 2023-11-18 16:13 | P.PN ---
Subjective Progress Note Date: 11/18/23 he patient is a pleasant 73-year-old gentleman who requested to stay in the ICU for further evaluation of atrial fibrillation with RVR. The patient is currently intubated and the history was taken from the chart. The patient presented to the hospital as an outpatient to undergo an EGD because he was exp eriencing epigastric discomfort. There was difficulties in getting the EGD done and the patient developed aspiration. Subsequently he went into respiratory distress and he was intubated and admitted to the intensive care unit. We requested to see the patient for further evaluation of atrial fibrillation with RVR. Apparently no history of atrial fibrillation in the chart. The patient does not have any history of CAD or heart failure or any cardiac arrhythmia. Currently is intubated on mechanical ventilation and currently is on small dose of norepinephrine. Hemoglobin this morning came in to be at 6.9. At least the endoscopy revealed gastric ulcer. The hemoglobin is below 7. He is in process of receiving a blood transfusion. The EKG showed atrial fibrillation but subsequently the patient converted to normal sinus mechanism. The physical examination is remarkable for intubated patient on mechanical ventilation with unstable hemodynamically requiring vasopressors with regular rate and rhythm and distant heart sounds and diminished breathing sounds bilaterally and no edema was noted in the lower extremities November 15, 2023 The patient was seen and evaluated this morning. He is converted to normal sinus mechanism. He is extubated. He seems to be hemodynamically stable as well. He cannot take any oral medication and with that being said and going to keep the patient on the current dose of amiodarone IV. The echo showed normal LV systolic function. The a chest x-ray showed bilateral infiltrate. The examination is remarkable for regular rhythm with a soft systolic murmur and diminished breathing sounds bilaterally. November 17, 2023 The patient was seen and evaluated this morning. He is maintaining normal sinus mechanism on the current dose of amiodarone. He cannot be on any anticoagulation because of the anemia and gastrointestinal bleeding. Currently is on amiodarone at 400 mg p.o. twice daily. No symptoms of any chest pain or chest discomfort. He underwent yesterday gastric tube placement and also a port placement as well. The physical examination is remarkable for regular rhythm with a soft systolic murmur and diminished breathing sounds bilaterally and no edema was noted in the lower extremities November 18, 2023 Patient maintains normal sinus rhythm. No further episodes of atrial fibrillation noticed since the initial one. On examination, regular pulses, normal sinus rhythm on telemetry, mild systolic murmur audible, diminished breath sounds bilaterally, no significant swelling in bilateral lower extremity Assessment Anemia likely to be blood loss anemia Acute hypoxic respiratory failure. That has resolved Gastric ulcer Atrial fibrillation of acute illness. The patient currently is maintaining normal sinus mechanism. Most likely lone A-fib Multiple comorbid conditions Plan Discontinue amiodarone. Start low-dose beta-emanuel Hold any anticoagulation because of the anemia and gastrointestinal bleeding. Moreover it is it seems like patient's atrial fibrillation was most likely alone A-fib episode due to acute illness, anemia and hypoxic respiratory failure. Would recommend outpatient follow-up with cardiology where we may perform long- term heart rhythm monitoring to see if patient has any subclinical paroxysms of atrial fibrillation. Patient is cleared from cardiology. Cardiology team will sign off. Please reconsult cardiology in case of any questions Objective - Vital Signs Vital signs: Vital Signs Temp 98 F 11/18/23 14:00 Pulse 68 11/18/23 15:17 Resp 18 11/18/23 15:17 BP 135/76 11/18/23 14:00 Pulse Ox 94 L 11/18/23 14:00 FiO2 40 11/16/23 13:09 Intake & Output 11/17/23 11/18/23 11/18/23 18:59 06:59 18:59 Intake Total 100 100 50 Output Total 1300 901 277 Balance -1200 -801 -227 Weight 100.8 kg 100.8 kg Intake: IV 100 100 50 Lactated Ringers 1,000 ml 0 @ 50 mls/hr IV .Q20H [facility] Rx#:[id number] Piperacillin-Tazobactam 3 100 50 .375 gm In Sodium Chloride 0.9% 100 ml @ 25 mls/hr IVPB Q8HR [facility] Rx# :[id number] Sodium Ferric Gluconat- 100 Sucrose 125 mg In Sodium Chloride 0.9% 100 ml @ 100 mls/hr IVPB DAILY [facility] Rx#:[id number] Output: Urine 1300 800 275 Post Void Residual 101 Stool 2 Other: Voiding Method Urinal Urinal Urinal # Voids 1 1 # Bowel Movements 1 - Labs CBC & Chem 7: 11/17/23 05:57 11/17/23 05:57 Labs: Abnormal Lab Results - Last 24 Hours (Table) 11/14/23 11/17/23 11/17/23 Range/Units 05:52 18:16 20:16 POC Glucose (mg/dL) 165 H 151 H (70-110) mg/dL Procalcitonin (0.02-0.50) ng/mL Crossmatch See Detail 11/18/23 11/18/23 11/18/23 Range/Units 06:39 09:07 11:36 POC Glucose (mg/dL) 177 H 145 H (70-110) mg/dL Procalcitonin 0.96 H (0.02-0.50) ng/mL Crossmatch
[2023-11-18 17:25] LABS: Glucose,Whole Blood 179 mg/dL (70-110)
--- NOTE | 2023-11-18 19:34 | P.PN ---
Progress Note - Text Progress Note Date: 11/18/23 Chief Complaint: Aspirated This is a 73-year-old patient, follows with Dr. Patricia Deal. Patient was seen this morning in the ICU. Patient's and daughter at the bedside. History obtained predominantly by the . Patient been having trouble with his stomach symptoms for close to 8 months. Patient underwent EGD by Dr. Sahara Cheng yesterday. Patient was found to have ulcerated around the antrum and obstruction to the pylorus. A lot of retained food was found. Patient aspirated. Had to be intubated and brought to the ICU. On a Levophed drip. FiO2 50 and a PEEP of 6. Patient had been losing weight lost about 25 pounds. Previously has a history of mitral valve prolapse. November 13: ICU. Patient remains on Precedex drip and propofol drip. Did not do well attempted extubation yesterday. Patient been off Levophed. NG tube to suction. Spoke to patient's and son at the bedside. Biopsy results awaited. Hemoglobin dropped to 6.9 this morning. Get a unit of blood. November 14: ICU. Up in a chair. Extubated yesterday. NG tube to suction. at the bedside. 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 Oncology was consulted. They have ordered a port. Results discussed with Dr. Sahara Cheng. General surgery was consulted for J-tube placement. Discussed with at the bedside. Patient getting IV fluids, IV Zosyn,. Patient has been on IV amiodarone for A-fib-back in sinus rhythm. Multiple PACs. Did receive unit of blood yesterday. Also IV ferric gluconate. November 15: ICU. Patient earlier today underwent jejunostomy tube placement and a port placement. Patient awake. Answering questions. NG tube to suction present. Updated patient's . Patient remains on IV amiodarone and IV Zosyn. November 16: ICU. Up in the chair. NG tube present but not to suction. Trickle feeding through the jejunostomy tube should be started today. Dietitian has been on board. IV Zosyn to continue. Patient's and his sister at the bedside. Discussed. Also spoke with Dr. Serna. Given patient has no other predisposing cardiac factors for the A-fib except acute illness. His LV function is normal. Left atrium is normal. He has already been loaded with IV amiodarone. Will switch him to oral Lopressor 12.5 twice daily. Hence will DC amiodarone. Patient yesterday had wheezing was put on bronchodilators steroids per pulmonary. November 17: Propped up in bed. NG tube was discontinued. Sinus rhythm. Remains NPO. Getting G-tube feeding at 40 cc an hour. Dietitian following. Get arrangements done for DC home tomorrow including tube feeding. Increase activity discussed with patient and elder daughter at the bedside. Still requiring oxygen. Incentive spirometry. Active Medications Albuterol/Ipratropium (Ipratropium-Albuterol 3 Ml Neb) 3 ml INHALATION RT-QID [facility] Last Admin: 11/18/23 15:13 Dose: 3 ml Dextrose/Water (Dextrose 50% Syringe 50 Ml) 25 ml IVP PER PROTOCOL PRN; Protocol PRN Reason: Hypoglycemia Dextrose/Water (Dextrose 50% Syringe 50 Ml) 50 ml IVP PER PROTOCOL PRN; Protocol PRN Reason: Hypoglycemia Hydromorphone HCl (Hydromorphone 0.5 Mg/0.5 Ml Syringe) 0.5 mg IVP Q3HR PRN PRN Reason: Pain Last Admin: 11/18/23 17:05 Dose: 0.5 mg Piperacillin Sod/Tazobactam (Sod 3.375 gm/ Sodium Chloride) 100 mls @ 25 mls/hr IVPB Q8HR [facility]; Protocol Last Admin: 11/18/23 15:48 Dose: 25 mls/hr Insulin Aspart (Insulin Aspart (Novolog) 100 Unit/Ml Vial) 0 unit SQ ACHS [facility]; Protocol Last Admin: 11/18/23 17:29 Dose: 2 unit Lidocaine HCl (Lidocaine 1% (10mg/Ml) For Iv Start) 0.1 ml INTRADERMA PER PROTOCOL PRN PRN Reason: IV Start Stop: 12/12/23 05:39 Methylprednisolone Sodium Succinate (Methylprednisolone Sod Succi 40 Mg/Ml 1 Ml Vial) 40 mg IV Q8HR [facility] Last Admin: 11/18/23 15:48 Dose: 40 mg Metoprolol Tartrate (Metoprolol Tartrate 12.5 Mg Tab) 12.5 mg PO BID [facility] Last Admin: 11/18/23 09:29 Dose: 12.5 mg Miscellaneous Information (Magnesium Replacement Protocol 1 Each Misc) 1 each MISCELLANE DAILY PRN; Protocol PRN Reason: Per Protocol Naloxone HCl (Naloxone 0.4 Mg/Ml 1 Ml Vial) 0.2 mg IV Q2M PRN PRN Reason: Opioid Reversal Pantoprazole Sodium (Pantoprazole 40 Mg/10 Ml Vial) 40 mg IVP BID [facility] Last Admin: 11/18/23 08:42 Dose: 40 mg Past medical history to include: GERD Social history: . No smoking. Physical examination: VITAL SIGNS: 98.4, 74, 22, 137 x 81, 94% on 5 L GENERAL: In a recliner. Awake comfortable. Right chest wall port EYES: Pupils equal. Conjunctiva edouard l. HEENT: External appearance of nose and ears normal, oral cavity grossly normal. NG tube NECK: JVD unable to assess; masses not palpable. HEART: First and second heart sounds are normal; no edema. LUNGS: Respiratory rate increased, mild expiratory wheezing ABDOMEN: Soft, nontender, liver spleen not palpable, no masses palpable..jejunostomy tube. PSYCH: Awake answering questions INVESTIGATIONS, reviewed in the clinical context: November 16: White count 9.1 hemoglobin 7.9 platelets 259 potassium 4.3 creatinine 0.92 November 15: WBC 13 hemoglobin 7.7 platelets 248 potassium 4.3 creatinine 0.87 2D echo: EF 55 to 60%. November 14: White count 10.7 hemoglobin 7.5 platelets 239 potassium 4.2 creatinine 0.96 Kidneys bladder: Unremarkable November 13: White count 12 hemoglobin 6.9 platelets 276 potassium 4.4 creatini ne 1.21 magnesium 1.8 iron 6 TIBC 365% saturation 1.64 transferrin 261 ferritin 34.6 B12 569 folate 4.4 November 12: White count 14 hemoglobin 7.6 platelets 333 sodium 136 BUN 26 creatinine 1.57 November 11: Creatinine 0.86 EGD: Large amount of retained solid liquid food noted in the stomach. Large superficial gastric antral ulceration involving most of the antrum extending into the pylorus causing pyloric stenosis. Biopsies were obtained. Chest x-ray film personally reviewed by me-scattered infiltrates Assessment plan: -Aspiration pneumonitis bilateral from retained gastric contents mostly food and liquids, causing acute hypoxic respiratory failure: IV Zosyn -Acute kidney injury. Possible ATN from hypotensive shock: Corrected Strict I's and O's. Follow renal function. Renal ultrasound unremarkable Seen by nephrology. IV fluids. I's and O's. -Nutrition Jejunostomy tube placed November [address] Ewing Currently at 40 cc an hour. Being followed by dietitian -Acute critical care transitional atrial fibrillation-sinus rhythm IV amiodarone. Discussed with Dr. Serna from cardiology. Stop amiodarone. Lopressor 12.5 twice daily -Acute hypoxic respiratory failure from aspiration pneumonia, status post ventilator assisted: Now 5 L nasal cannula Incentive spirometry -Normocytic anemia likely o secondary underlying lymphoma Iron deficiency anemia Received a unit of blood. IV iron. -Acute blood loss anemia, could be oozing from biopsy site in the stomach Received blood -GERD PPI -Large superficial gastric antral ulceration involving the gastric antrum extending into the pylorus with gastric outlet obstruction. 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 Port placed. For outpatient PET scan. -Full code Discussed with patient daughter at the bedside. The nurse. Planning for discharge home tomorrow. Past Medical History Past Medical History: GERD/Reflux History of Any Multi-Drug Resistant Organisms: None Reported Past Surgical History: Heart Catheterization Additional Past Surgical History / Comment(s): colonsocopy,spinal injection, Past Anesthesia/Blood Transfusion Reactions: No Reported Reaction Past Psychological History: No Psychological Hx Reported Smoking Status: Never smoker Past Alcohol Use History: None Reported Past Drug Use History: None Reported
[2023-11-18 19:58] LABS: Glucose,Whole Blood 171 mg/dL (70-110)
[2023-11-19 06:32] LABS: Glucose,Whole Blood 161 mg/dL (70-110)
--- NOTE | 2023-11-19 08:54 | XR ---
EXAMINATION TYPE: XR chest 1V portable DATE OF EXAM: 11/19/2023 COMPARISON: 11/17/2023 INDICATION: Aspiration TECHNIQUE: Single frontal view of the chest is obtained. FINDINGS: The heart size is normal. The pulmonary vasculature is normal. No lung opacities have largely resolved. Some residual may be along the left diaphragm. The left pleu ral effusion may be present. Right central venous catheter is present with the tip in the right atrium. Nasogastric tube is been r emoved IMPRESSION: 1. Minimal residual left basilar atelectasis left pleural effusion. [facility], , 11/19/2023 8:51 AM
--- NOTE | 2023-11-19 10:36 | P.PN ---
Subjective Progress Note Date: 11/19/23 Principal diagnosis: Aspiration 73-year-old male who is scheduled for outpatient upper endoscopy for complaints of chronic epigastric pain over the last 8 months duration and weight loss of 22 pounds over the last 4 months duration. Today he underwent upper endoscopy today and was found to have large amount of retained food in his stomach with evidence of large superficial gastric antral ulcer involving most of the antrum extending into the pylorus causing pyloric stenosis. Scope could not be advanced any further through the pylorus suggestive of gastric outlet obstructi on. Multiple biopsies were done from the gastric antral ulceration. During this process patient had aspirated and had a drop in his oxygen saturation and needed to be intubated per anesthesia. He was s admitted to the hospital and transferred to the to the ICU currently remains intubated with NG tube placed with about 200 cc of gastric output. 11/13/2023 Patient remains in the ICU sedated and intubated on mechanical ventilation. Family at the bedside. Had approximately 6-700 output of the NG tube since yesterday until this morning. Currently no output at this time. Chest x-ray reports perihilar increased density may reflect developing infiltrate. Patient has been afebrile. 11/14/2023 Patient seen and examined today as a follow-up. He remains in the ICU sedated and mechanical ventilation. Weaning trial yesterday was stopped as patient was not tolerating it well. Clear liquid through the NG tube was not trialed as patient was restless. Supposed to do another sedation holiday and weaning trial today. Patient is having minimal output from the NG tube. He has been afebrile . 11/15/2023 Patient is seen and examined today as a follow-up. He remains in the ICU. He was extubated yesterday evening, patient's daughter and at the bedside. He is somewhat confused and they state that trying to get out of bed and pull out his NG tube. Not much coming from the NG tube yesterday or through the night. Biopsies from EGD gastric ulcer positive for high-grade non-Hodgkin's diffuse large B-cell lymphoma, non-germinal center activated B-cell type. Results discussed with peter saxena and his family. Today's labs WBC 10.7 hemoglobin 7.5 platelet count 239,000 sodium 138 potassium 4.2 BUN 7 creatinine 2.0 magnesium 1.9 11/18/2023 Patient seen and examined today in the ICU. He is actually downgraded to cardiac stepdown unit however they did not have a bed. He is awake and alert. Denies any abdominal pain, nausea or vomiting. NG tube has been removed. He is on 5 L of nasal cannula. He was seen by general surgery and J-tube and Mediport placed 11/16/2023. He currently has tube feedings to goal. 11/19/2023 Patient seen and examined today as a follow-up. He is on tube feedings at 55 cc/h. States he is having abdominal cramping and diarrhea. He remains on IV antibiotics. C. difficile stool study ordered but not sent down at this time. Objective - Vital Signs Vital signs: Vital Signs Temp 97.5 F L 11/19/23 04:00 Pulse 55 L 11/19/23 08:12 Resp 20 11/19/23 08:01 BP 145/79 11/19/23 04:00 Pulse Ox 97 11/19/23 08:01 FiO2 40 11/16/23 13:09 Intake & Output 11/18/23 11/19/23 11/19/23 18:59 06:59 18:59 Intake Total 50 730 Output Total 277 0 Balance -227 730 Weight 100.8 kg 98.4 kg Intake: IV 50 100 Piperacillin-Tazobactam 3 50 100 .375 gm In Sodium Chloride 0.9% 100 ml @ 25 mls/hr IVPB Q8HR [facility] Rx# :[id number] Tube Feeding 540 Other 90 Output: Urine 275 0 Stool 2 Other: Voiding Method Urinal Urinal # Voids 1 3 # Bowel Movements 1 5 - Exam General appearance: The patient is alert and oriented. Appears in no acute distress. HET: Head is normocephalic and atraumatic. Neck: Supple without lymphadenopathy. Abdomen: Soft, J-tube in place, nontender nondistended. Extremities: Normal skin color and turgor. No pedal edema Skin: No rashes, no jaundice Neurological: Alert and oriented. - Labs CBC & Chem 7: 11/17/23 05:57 11/17/23 05:57 Labs: Abnormal Lab Results - Last 24 Hours (Table) 11/18/23 11/18/23 11/18/23 Range/Units 09:07 11:36 17:24 POC Glucose (mg/dL) 145 H 179 H (70-110) mg/dL Procalcitonin 0.96 H (0.02-0.50) ng/mL 11/18/23 11/19/23 Range/Units 19:57 06:31 POC Glucose (mg/dL) 171 H 161 H (70-110) mg/dL Procalcitonin (0.02-0.50) ng/mL Assessment and Plan (1) Gastric outlet obstruction Narrative/Plan: 73-year-old scheduled for outpatient procedure found to have significant amount of retained solid and liquid food in the stomach and also noted of large antral ulcer. This is a patient that was being worked up for chronic epigastric pain and unintentional weight loss. During procedure patient he had aspirated subsequently needing intubation and was admitted to the ICU for further evaluation. NG tube is placed with 200 mL of gastric output including food and liquid. Will continue to follow and await biopsy report report Current Visit: Yes Status: Acute Priority: High Code(s): K31.1 - ADULT HYPERTROPHIC PYLORIC STENOSIS SNOMED Code(s): 728116857 (2) Aspiration into airway Narrative/Plan: Acute hypoxic respiratory failure requiring intubation and mechanical ventilation secondary to above resolved Current Visit: Yes Status: Acute Priority: High Code(s): T17.908A - UNSP FB IN RESP TRACT, PART UNSP CAUSING OTH INJURY, INIT SNOMED Code(s): 627954836 (3) Gastric ulcer Narrative/Plan: Biopsy positive for high-grade non-Hodgkin's diffuse large B cell lymphoma General surgery following, J-tube and port placed. Oncology following. Current Visit: Yes Status: Acute Priority: High Code(s): K25.9 - GASTRIC ULCER, UNSP ACUTE OR CHRONIC, W/O HEMOR OR PERF SNOMED Code(s): 623608134 (4) Epigastric pain Current Visit: Yes Status: Acute Code(s): R10.13 - EPIGASTRIC PAIN SNOMED Code(s): 67128529 (5) Unintentional weight loss Current Visit: Yes Status: Acute Code(s): R63.4 - ABNORMAL WEIGHT LOSS SNOMED Code(s): 800050728 (6) Diarrhea Narrative/Plan: New onset diarrhea since increase on tube feedings with abdominal cramping. Pat ient also has been on IV antibiotics during this hospitalization. Diarrhea likely secondary to tube feedings and IV antibiotics. Need to rule out C. difficile. Recommend collecting stool sample to rule out C. difficile infection. If C. difficile negative recommend antidiarrheals such as Imodium. Current Visit: Yes Status: Acute Code(s): R19.7 - DIARRHEA, UNSPECIFIED SNOMED Code(s): 20438167 Plan: 1. Continue symptomatic and supportive care 2. Keep n.p.o. 3. Protonix 40 mg daily for GI prophylaxis 4. Rest of medical management per primary medical team 5. Collect stool for C. difficile, if negative would recommend antidiarrheal 6. Patient not need to follow-up with gastroenterology at this time. Oncology will recommend outpatient follow-up when needed Thank you for this consultation, patient is cleared from gastroenterology. We will sign off at this time. Dr. Sahara Cheng I agree with the dictator's note, documented as a scribe by Leslee Estes.
--- NOTE | 2023-11-19 10:42 | P.PN ---
Subjective Progress Note Date: 11/19/23 This is a 73-year-old white male with history of chronic abdominal pain for the last 8 months has been treated with Protonix 40 mg daily for the last 3 months with no improvement. Patient had a 22 pound weight loss in the last [address] of the abdomen and pelvis 3 weeks ago showed thickening of the antral wall with pathological adenopathy posterior to the stomach suspicious of neoplasm. Today the patient underwent elective upper endoscopy to evaluate further, patient received IV sedation by anesthesia endoscope was inserted into the mouth, esophagus was intubated without any difficulty there was evidence of large amount of liquid and solid food noted in the stomach suggestive of gastric outlet obstruction. Scope could not be advanced through the pylorus, however in the prepyloric area there was a large superficial ulceration identified with multiple biopsies were done from this area. The body cardia and fundus could not adequately visualize because of large amount of retained food in the stomach. Scope was withdrawn back to the stomach and upon careful examination the mucosa of the antrum body and cardia as well as the fundus appeared normal. Procedure was being performed and biopsies were done patient threw up and subsequently became hypoxic there was clearly evidence of witnessed aspiration anesthesia intubated the patient, procedure was terminated, and the patient was transferred to the ICU, this consult was initiated. Patient is now on assist- control rate of 20 tidal volume 500 FiO2 70% PEEP of 10 ABG is pending, earlier ABG showed profound hypoxia patient is on propofol at 50 mcg/kg/min, next ABG is pending. Chest x-ray showed chronic changes without evidence of acute pulmonary disease. Patient was seen and examined today on 11/13/2023, remains in the ICU, intubated mechanically ventilated, on assist-control rate of 20 tidal volume 500 FiO2 50% and PEEP of 10 ABG showed a pO2 of 143 pCO2 47 pH of 7.28 hence PEEP was cut down to 6, and increased rate to 22. Patient is still requiring IV fluid at 100 cc/h/LR. Requiring norepinephrine at 0.08 mcg/kg/min he is also on propofol at 50 mg/kg/min antibiotics arce patient is receiving Zosyn. Chest x-ray is sh owing worsening infiltrates specially in the left lung. This could be related to aspiration pneumonia. Patient had witnessed aspiration during endoscopy/upper endoscopy.WBC count is 14 hemoglobin 7.6 basic metabolic profile is normal BUN is 26 creatinine 1.57 obviously the patient sustained some acute kidney injury baseline creatinine 0.86 patient had received fluids over the last 24 hours, remains on fluids at 100 cc/h Patient with seen and examined today on 11/14/2023, patient remains in the ICU, intubated and mechanically ventilated. Failed weaning trial yesterday and he became quite agitated and desaturated once he went off propofol. Had to be placed back on assist-control mode of mechanical ventilation and sedation. Today the patient is on assist-control rate of 22 tidal volume 500 FiO2 50% PEEP of 6. ABG showed a pO2 of 123 pCO2 51 pH of 7.32, and I cut down his FiO2 down to 45%, patient is receiving a unit of packed RBCs for hemoglobin of 6.9 today. Patient had an episode of A-fib RVR at 3 AM in the morning, seen by cardiology, and recommended patient goes on amiodarone. Still requiring norepinephrine at 0.05 mg/kg/min, he is on LR at 100 cc/h propofol at 50 mg/kg/min. Remains empirically on Zosyn for aspiration pneumonia. My plan today is transitioning the patient to Precedex, hopefully discontinue propofol, and at least give the patient a decent weaning trial or at least check weaning parameters before we proceed to weaning trial. Chest x-ray continues to show evidence of pneumonia mostly in the left lung and left lower lobe more specifically. Some pulmonary vascular congestion is noted with interstitial edema, small pleural effusion is also noted/left side. WBC count today is 12 hemoglobin 6.9 basic metabolic profile is normal bicarb is 25, BUN is 25 creatinine is improving down to 1.21 from 1.57 yesterday Patient was evaluated today on 11/15/2023, patient remains in the ICU, he was extubated yesterday, and his extubation was relatively uneventful. However the patient continues to have nasogastric tube in place, his pathology report came back showing non-Hodgkin's lymphoma, patient has gastric outlet obstruction, and the recommendation by GI is to consult surgery for a jejunostomy tube which is appropriate. Patient will be seen today by oncology and he will be seen by general surgery. In the meantime patient is comfortable, he is on 5 L nasal cannula he has LR running at 100 cc/h, he is remains on Zosyn for aspiration pneumonia remains on amiodarone which was started by cardiology for atrial fibrillation with RVR, presently in sinus rhythm. Cannot switch him to oral because of the fact that remains n.p.o., patient remains on TPN. WBC count is 10.7 hemoglobin 7.5 electrolytes are normal renal profile is normal, creatinine normalized to 0.96 Patient was evaluated today on 11/16/2023, remains in the ICU, on 5 L nasal cannula remains on amiodarone at 0.5 mg/min remains on LR at 100 cc/h, however his chest x-ray is showing some component of interstitial edema or could be findings related to his recent episode of aspiration/aspiration pneumonia, nonetheless the patient seems to be a bit symptomatic, he has intermittent cough and wheezing, I am recommending Lasix 40 mg IV push, cut down his IV fluid to 50 cc/h, continue Zosyn, patient will be placed on DuoNeb updrafts and on Solu- Medrol. Patient is scheduled to have jejunostomy-tube placement today. WBC count is 13 hemoglobin 7.7 basic metabolic profile is normal and renal profile is normal Patient was evaluated today on 11/17/2023, patient underwent uneventful placement of a jejunostomy tube yesterday, in the ICU on 5 L, patient is relatively stable, not in any distress, patient continues to have nasogastric tube in place although he did have a J-tube placed yesterday. Patient was seen by oncology for his non-Hodgkin's lymphoma involving the gastric outlet. Today's x-ray showed evidence of pneumonia/bilateral interstitial infiltrate/edema patient was given a dose of Lasix, I reminded the patient had an aspiration episode which was significant. And he required intubation mechanical ventilation for a few days.WBC count today is 9.1 hemoglobin 7.9 electrolytes are normal renal profile is normal hence I plan to transfer the patient out of the ICU to a cardiac floor. And hopefully discharge planning in the next 2 days for The patient was seen today November 18, 2023 in follow-up in the intensive care unit. He is currently sitting up in bed. Awake and alert in no acute distress. He is maintaining O2 saturations in the 90s on 5 L/min per nasal cannula. Glucose 177. Remains on DuoNeb inhalations and Solu-Medrol. Antibiotics in the form of Zosyn. He has a J-tube in place. He was initiated on vital AF 1.2 at 10 mL an hour with a goal of 82 mL/h The patient is seen today November 19, 2023 in follow-up in the intensive care unit. He is a regular medical floor overflow patient. He is currently sitting up in a chair. Awake and alert in no acute distress. He is maintaining O2 saturations in the 90s on 5 L/min per nasal cannula. No IV fluids. He denies any worsening shortness of breath, cough or congestion. He is having some issues with diarrhea. He remains on Zosyn. He is receiving vital AF at 55 mL/h with a goal of 82 mL/h. Glucose 161. Solu-Medrol, DuoNeb inhalations. Objective - Vital Signs Vital signs: Vital Signs Temp 97.5 F L 11/19/23 04:00 Pulse 55 L 11/19/23 08:12 Resp 20 11/19/23 08:01 BP 145/79 11/19/23 04:00 Pulse Ox 97 11/19/23 08:01 FiO2 40 11/16/23 13:09 Intake & Output 11/18/23 11/19/23 11/19/23 18:59 06:59 18:59 Intake Total 50 730 Output Total 277 0 Balance -227 730 Weight 100.8 kg 98.4 kg Intake: IV 50 100 Piperacillin-Tazobactam 3 50 100 .375 gm In Sodium Chloride 0.9% 100 ml @ 25 mls/hr IVPB Q8HR [facility] Rx# :[id number] Tube Feeding 540 Other 90 Output: Urine 275 0 Stool 2 Other: Voiding Method Urinal Urinal # Voids 1 3 # Bowel Movements 1 5 - Exam GENERAL EXAM: Alert, 73-year-old male, sitting up in a chair, on 5 L nasal cannula, comfortable in no apparent distress. HEAD: Normocephalic. EYES: Normal reaction of pupils, equal size. NOSE: Clear with pink turbinates. THROAT: No erythema or exudates. NECK: No masses, no JVD. CHEST: No chest wall deformity. LUNGS: Equal air entry with few scattered rhonchi. CVS: S1 and S2 normal with no audible murmur, regular rhythm. ABDOMEN: J-tube exit site clean and dry. No hepatosplenomegaly, normal bowel sounds, no guarding or rigidity. SPINE: No scoliosis or deformity SKIN: No rashes CENTRAL NERVOUS SYSTEM: No focal deficits, tone is normal in all 4 extremities. EXTREMITIES: There is no peripheral edema. No clubbing, no cyanosis. Peripheral pulses are intact. - Labs CBC & Chem 7: 11/17/23 05:57 11/17/23 05:57 Labs: Abnormal Lab Results - Last 24 Hours (Table) 11/18/23 11/18/23 11/18/23 Range/Units 09:07 11:36 17:24 POC Glucose (mg/dL) 145 H 179 H (70-110) mg/dL Procalcitonin 0.96 H (0.02-0.50) ng/mL 11/18/23 11/19/23 Range/Units 19:57 06:31 POC Glucose (mg/dL) 171 H 161 H (70-110) mg/dL Procalcitonin (0.02-0.50) ng/mL Assessment and Plan Assessment: Acute hypoxic respiratory failure requiring intubation mechanical ventilation secondary to aspiration during EGD on 11/12/2023. Patient was extubated on 11/14/2023 and tolerated the extubation well Status post J-tube placement 11/16/2023, postoperative day #3 Acute aspiration pneumonia Acute aspiration during upper endoscopy most likely secondary to gastric outlet obstruction secondary to non-Hodgkin's lymphoma based on the pathology from stomach biopsies Chronic abdominal pain, secondary to lymphoma Unexplained weight loss most likely secondary non-Hodgkin's lymphoma involving the stomach Paroxysmal atrial fibrillation, addressed by cardiology Plan: The patient was seen and evaluated Labs and medications reviewed Continue DuoNeb inhalations, Solu-Medrol Continue J-tube feedings Titrate down the FiO2 as tolerated Plan is for outpatient PET scan We will continue to follow I have personally seen and examined the patient, performed the documentation and the assessment and plan as written. Number of minutes spent on the visit: 10.
[2023-11-19 12:25] LABS: Glucose,Whole Blood 181 mg/dL (70-110)
--- NOTE | 2023-11-19 13:38 | P.PN ---
Subjective Progress Note Date: 11/19/23 CHIEF COMPLAINT: Abdominal pain HISTORY OF PRESENT ILLNESS: Patient currently in the ICU. He is postop day #3 status post Mediport and J-tube placement. Patient's tube feeds are currently on hold. Patient had multiple episodes of diarrhea during the night and 4 episodes this morning. He had complained of abdominal cramping. He denies any nausea or vomiting. Denies any blood in the stools. Patient had EGD this admission with evidence of large antral ulcer and gastric outlet obstruction biopsy positive for non-Hodgkin lymphoma. Afebrile. WBC 9.0 stool for c.diff is negative PHYSICAL EXAM: VITAL SIGNS: Reviewed. GENERAL: Well-developed in no acute distress. CHEST: Mediport site right chest, clean dry and intact ABDOMEN: Soft. Mildly distended. Mild tenderness around J-tube site NEUROLOGIC: Alert and oriented. Cranial nerves II through XII grossly intact. ASSESSMENT: 1. Non-Hodgkin lymphoma noted on stomach biopsy 2. Severe protein calorie malnutrition 3. Diarrhea PLAN: -Tube feeds currently on hold. Awaiting dietitian recommendations regarding possibly changing tube feeds and starting at a lower rate. Tube feeds possibly contributing to patient's diarrhea and abdominal cramping -Continue supportive care Physician Sanitation Supervisor note has been reviewed by physician. Signing provider agrees with the documented findings, assessment, and plan of care. Objective - Vital Signs Vital signs: Vital Signs Temp 97.9 F 11/19/23 08:00 Pulse 66 11/19/23 12:27 Resp 20 11/19/23 12:27 BP 152/98 11/19/23 12:27 Pulse Ox 93 L 11/19/23 12:27 FiO2 40 11/16/23 13:09 Intake & Output 11/18/23 11/19/23 11/19/23 18:59 06:59 18:59 Intake Total 50 730 Output Total 277 0 1 Balance -227 730 -1 Weight 100.8 kg 98.4 kg Intake: IV 50 100 Piperacillin-Tazobactam 3 50 100 .375 gm In Sodium Chloride 0.9% 100 ml @ 25 mls/hr IVPB Q8HR REPLACED BY [facility] Rx# :[id number] Tube Feeding 540 Other 90 Output: Urine 275 0 Stool 2 1 Other: Voiding Method Urinal Urinal Urinal # Voids 1 3 # Bowel Movements 1 5 2 - Labs CBC & Chem 7: 11/17/23 05:57 11/17/23 05:57 Labs: Abnormal Lab Results - Last 24 Hours (Table) 11/18/23 11/18/23 11/18/23 Range/Units 09:07 17:24 19:57 POC Glucose (mg/dL) 179 H 171 H (70-110) mg/dL Procalcitonin 0.96 H (0.02-0.50) ng/mL 11/19/23 11/19/23 Range/Units 06:31 12:24 POC Glucose (mg/dL) 161 H 181 H (70-110) mg/dL Procalcitonin (0.02-0.50) ng/mL
[2023-11-19 18:18] LABS: Glucose,Whole Blood 183 mg/dL (70-110)
--- NOTE | 2023-11-19 21:20 | P.PN ---
Progress Note - Text Progress Note Date: 11/19/23 Chief Complaint: Aspirated This is a 73-year-old patient, follows with Dr. Patricia Deal. Patient was seen this morning in the ICU. Patient's and daughter at the bedside. History obtained predominantly by the . Patient been having trouble with his stomach symptoms for close to 8 months. Patient underwent EGD by Dr. Sahara Cheng yesterday. Patient was found to have ulcerated around the antrum and obstruction to the pylorus. A lot of retained food was found. Patient aspirated. Had to be intubated and brought to the ICU. On a Levophed drip. FiO2 50 and a PEEP of 6. Patient had been losing weight lost about 25 pounds. Previously has a history of mitral valve prolapse. November 13: ICU. Patient remains on Precedex drip and propofol drip. Did not do well attempted extubation yesterday. Patient been off Levophed. NG tube to suction. Spoke to patient's and son at the bedside. Biopsy results awaited. Hemoglobin dropped to 6.9 this morning. Get a unit of blood. November 14: ICU. Up in a chair. Extubated yesterday. NG tube to suction. at the bedside. 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 Oncology was consulted. They have ordered a port. Results discussed with Dr. Sahara Cheng. General surgery was consulted for J-tube placement. Discussed with at the bedside. Patient getting IV fluids, IV Zosyn,. Patient has been on IV amiodarone for A-fib-back in sinus rhythm. Multiple PACs. Did receive unit of blood yesterday. Also IV ferric gluconate. November 15: ICU. Patient earlier today underwent jejunostomy tube placement and a port placement. Patient awake. Answering questions. NG tube to suction present. Updated patient's . Patient remains on IV amiodarone and IV Zosyn. November 16: ICU. Up in the chair. NG tube present but not to suction. Trickle feeding through the jejunostomy tube should be started today. Dietitian has been on board. IV Zosyn to continue. Patient's and his sister at the bedside. Discussed. Also spoke with Dr. Serna. Given patient has no other predisposing cardiac factors for the A-fib except acute illness. His LV function is normal. Left atrium is normal. He has already been loaded with IV amiodarone. Will switch him to oral Lopressor 12.5 twice daily. Hence will DC amiodarone. Patient yesterday had wheezing was put on bronchodilators steroids per pulmonary. November 17: Propped up in bed. NG tube was discontinued. Sinus rhythm. Remains NPO. Getting G-tube feeding at 40 cc an hour. Dietitian following. Get arrangements done for DC home tomorrow including tube feeding. Increase activity discussed with patient and elder daughter at the bedside. Still requiring oxygen. Incentive spirometry. November 18: Patient up in recliner. Earlier today spoke to psychotherapist social worker David. Informed patient is rather weak and will be going to the ECF. Looking at authorization. eDnae came to the room and spoke to patient his and his daughter. They are very keen to take the patient home as 3 daughters all nurses and they will take care of him at home. Patient earlier today to abdominal cramping and some loose stools.'s tube feeding was held. Told the nurse to start back at the rate of 40 cc an hour. He was before the getting it at 55 cc an hour. Incentive spirometry was again emphasized. Patient remains on 4 L of oxygen. Active Medications Albuterol/Ipratropium (Ipratropium-Albuterol 3 Ml Neb) 3 ml INHALATION RT-QID [facility] Last Admin: 11/19/23 15:08 Dose: 3 ml Dextrose/Water (Dextrose 50% Syringe 50 Ml) 25 ml IVP PER PROTOCOL PRN; Protocol PRN Reason: Hypoglycemia Dextrose/Water (Dextrose 50% Syringe 50 Ml) 50 ml IVP PER PROTOCOL PRN; Protocol PRN Reason: Hypoglycemia Hydromorphone HCl (Hydromorphone 0.5 Mg/0.5 Ml Syringe) 0.5 mg IVP Q3HR PRN PRN Reason: Pain Last Admin: 11/19/23 20:39 Dose: 0.5 mg Piperacillin Sod/Tazobactam (Sod 3.375 gm/ Sodium Chloride) 100 mls @ 25 mls/hr IVPB Q8HR [facility]; Protocol Last Admin: 11/19/23 16:30 Dose: 25 mls/hr Insulin Aspart (Insulin Aspart (Novolog) 100 Unit/Ml Vial) 0 unit SQ ACHS [facility]; Protocol Last Admin: 11/19/23 18:46 Dose: 2 unit Lidocaine HCl (Lidocaine 1% (10mg/Ml) For Iv Start) 0.1 ml INTRADERMA PER PROTOCOL PRN PRN Reason: IV Start Stop: 12/12/23 05:39 Methylprednisolone Sodium Succinate (Methylprednisolone Sod Succi 40 Mg/Ml 1 Ml Vial) 40 mg IV Q8HR [facility] Last Admin: 11/19/23 16:31 Dose: 40 mg Metoprolol Tartrate (Metoprolol Tartrate 12.5 Mg Tab) 12.5 mg PO BID [facility] Last Admin: 11/19/23 20:41 Dose: 12.5 mg Miscellaneous Information (Magnesium Replacement Protocol 1 Each Misc) 1 each MISCELLANE DAILY PRN; Protocol PRN Reason: Per Protocol Naloxone HCl (Naloxone 0.4 Mg/Ml 1 Ml Vial) 0.2 mg IV Q2M PRN PRN Reason: Opioid Reversal Pantoprazole Sodium (Pantoprazole 40 Mg/10 Ml Vial) 40 mg IVP BID [facility] Last Admin: 11/19/23 20:40 Dose: 40 mg Past medical history to include: GERD Social history: . No smoking. Physical examination: VITAL SIGNS: 97.8, 71, 20, 152/93, 92% on 4 L GENERAL: In a recliner. Awake comfortable. Right chest wall port EYES: Pupils equal. Conjunctiva edouard l. HEENT: External appearance of nose and ears normal, oral cavity grossly normal. NG tube NECK: JVD unable to assess; masses not palpable. HEART: First and second heart sounds are normal; no edema. LUNGS: Respiratory rate increased, mild expiratory wheezing ABDOMEN: Soft, nontender, liver spleen not palpable, no masses palpable..jejunostomy tube. PSYCH: Awake answering questions INVESTIGATIONS, reviewed in the clinical context: Stool: C. difficile negative November 16: White count 9.1 hemoglobin 7.9 platelets 259 potassium 4.3 creatinine 0.92 November 15: WBC 13 hemoglobin 7.7 platelets 248 potassium 4.3 creatinine 0.87 2D echo: EF 55 to 60%. November 14: White count 10.7 hemoglobin 7.5 platelets 239 potassium 4.2 creatinine 0.96 Kidneys bladder: Unremarkable November 13: White count 12 hemoglobin 6.9 platelets 276 potassium 4.4 creatinine 1.21 magnesium 1.8 iron 6 TIBC 365% saturation 1.64 transferrin 261 ferritin 34.6 B12 569 folate 4.4 November 12: White count 14 hemoglobin 7.6 platelets 333 sodium 136 BUN 26 creatinine 1.57 November 11: Creatinine 0.86 EGD: Large amount of retained solid liquid food noted in the stomach. Large superficial gastric antral ulceration involving most of the antrum extending into the pylorus causing pyloric stenosis. Biopsies were obtained. Chest x-ray film personally reviewed by me-scattered infiltrates Assessment plan: -Aspiration pneumonitis bilateral from retained gastric contents mostly food and liquids, causing acute hypoxic respiratory failure: IV Zosyn -Acute kidney injury. Possible ATN from hypotensive shock: Corrected Strict I's and O's. Follow renal function. Renal ultrasound unremarkable Seen by nephrology. IV fluids. I's and O's. -Nutrition Jejunostomy tube placed November [address] Ewing Tube feeding temporarily held because of abdominal cramping. Resume at a slower rate. -Acute critical care transitional atrial fibrillation-sinus rhythm IV amiodarone. Discussed with Dr. Serna from cardiology. Stop amiodarone. Lopressor 12.5 twice daily -Acute hypoxic respiratory failure from aspiration pneumonia, status post ventilator assisted: Now 4 L nasal cannula Incentive spirometry -Normocytic anemia likely o secondary underlying lymphoma Iron deficiency anemia Received a unit of blood. IV iron. -Acute blood loss anemia, could be oozing from biopsy site in the stomach Received blood -GERD PPI -Acute diarrhea secondary to tube feeding. C. difficile ruled out -Large superficial gastric antral ulceration involving the gastric antrum extending into the pylorus with gastric outlet obstruction. 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 Port placed. For outpatient PET scan. -Full code Discussed with the patient, patient's and daughter at bedside. They are very keen to take the patient home. Because abdominal cramping patient tube feedings cut back to 40 cc an hour after stopping for some time. Hopefully patient can be discharged home tomorrow. Past Medical History Past Medical History: GERD/Reflux History of Any Multi-Drug Resistant Organisms: None Reported Past Surgical History: Heart Catheterization Additional Past Surgical History / Comment(s): colonsocopy,spinal injection, Past Anesthesia/Blood Transfusion Reactions: No Reported Reaction Past Psychological History: No Psychological Hx Reported Smoking Status: Never smoker Past Alcohol Use History: None Reported Past Drug Use History: None Reported
--- NOTE | 2023-11-19 22:35 | XR ---
EXAMINATION TYPE: XR abdomen acute w cxr DATE OF EXAM: 11/19/2023 CLINICAL HISTORY: Abdominal pain. TECHNIQUE: Single frontal view of chest is obtained. Supine and upright views of the abdomen are acq uired. COMPARISON: Chest x-ray earlier today. CT abdomen and pelvis October 29, 2023 FINDINGS: Stable right subclavian Mediport catheter. There is chronic interval change with persisten t left basilar opacity. Cardiomegaly redemonstrated. Osseous structures are intact. Catheter overlies the central abdomen. Gas prominent and dilated small bowel loops in the upper to midabdomen. Some paucity of bowel gas in the pelvis. No free air. Moderate degenerative change of both hips is seen. IMPRESSION: 1. Cardiomegaly with left basilar acute infiltrate and/or atelectasis redemonstrated. 2. Overall nonspecific bowel gas pattern. A mid small bowel obstruction needs to be considered. [facility], , 11/19/2023 10:33 PM
[2023-11-19 23:59] LABS: Glucose,Whole Blood 176 mg/dL (70-110)
[2023-11-20 06:00] LABS: Glucose,Whole Blood 176 mg/dL (70-110)
[2023-11-20 08:15] LABS: Glucose,Whole Blood 168 mg/dL (70-110)
[2023-11-20] MEDS: methylPREDNISolone SOD SUCCI 40 MG/ML 1 ML VIAL IV SCH (08:22)
[2023-11-20 08:43] LABS: Basophils # (A) 0.01 X 10*3/uL (0.00-0.10); Basophils % (A) 0.1 %; Eosinophils # (A) 0 X 10*3/uL (0.04-0.35); Eosinophils % (A) 0 %; HCT 30.6 % (39.6-50.0); Lymphocytes # (A) 1.31 X 10*3/uL (0.90-5.00); Lymphocytes % (A) 10.6 %; MCH 26.2 pg (27.0-32.0); MCHC 29.4 g/dL (32.0-37.0); Mean Platelet Volume 10.2 FL (9.5-12.2); NRBC Per 100 WBC 0.05 X 10*3/uL (0.00-0.01); Neutrophils # (A) 10.31 X 10*3/uL (1.80-7.70); Neutrophils % (A) 83.2 %; Platelet Count 258 X 10*3/uL (140-440); RBC 3.44 X 10*6/uL (4.40-5.60); RDW 16.3 % (11.5-14.5); WBC 12.39 X 10*3/uL (4.50-10.00)
--- NOTE | 2023-11-20 11:24 | P.PN ---
Subjective Progress Note Date: 11/20/23 This is a 73-year-old white male with history of chronic abdominal pain for the last 8 months has been treated with Protonix 40 mg daily for the last 3 months with no improvement. Patient had a 22 pound weight loss in the last [address] of the abdomen and pelvis 3 weeks ago showed thickening of the antral wall with pathological adenopathy posterior to the stomach suspicious of neoplasm. Today the patient underwent elective upper endoscopy to evaluate further, patient received IV sedation by anesthesia endoscope was inserted into the mouth, esophagus was intubated without any difficulty there was evidence of large amount of liquid and solid food noted in the stomach suggestive of gastric outlet obstruction. Scope could not be advanced through the pylorus, however in the prepyloric area there was a large superficial ulceration identified with multiple biopsies were done from this area. The body cardia and fundus could not adequately visualize because of large amount of retained food in the stomach. Scope was withdrawn back to the stomach and upon careful examination the mucosa of the antrum body and cardia as well as the fundus appeared normal. Procedure was being performed and biopsies were done patient threw up and subsequently became hypoxic there was clearly evidence of witnessed aspiration anesthesia intubated the patient, procedure was terminated, and the patient was transferred to the ICU, this consult was initiated. Patient is now on assist- control rate of 20 tidal volume 500 FiO2 70% PEEP of 10 ABG is pending, earlier ABG showed profound hypoxia patient is on propofol at 50 mcg/kg/min, next ABG is pending. Chest x-ray showed chronic changes without evidence of acute pulmonary disease. Patient was seen and examined today on 11/13/2023, remains in the ICU, intubated mechanically ventilated, on assist-control rate of 20 tidal volume 500 FiO2 50% and PEEP of 10 ABG showed a pO2 of 143 pCO2 47 pH of 7.28 hence PEEP was cut down to 6, and increased rate to 22. Patient is still requiring IV fluid at 100 cc/h/LR. Requiring norepinephrine at 0.08 mcg/kg/min he is also on propofol at 50 mg/kg/min antibiotics arce patient is receiving Zosyn. Chest x-ray is sh owing worsening infiltrates specially in the left lung. This could be related to aspiration pneumonia. Patient had witnessed aspiration during endoscopy/upper endoscopy.WBC count is 14 hemoglobin 7.6 basic metabolic profile is normal BUN is 26 creatinine 1.57 obviously the patient sustained some acute kidney injury baseline creatinine 0.86 patient had received fluids over the last 24 hours, remains on fluids at 100 cc/h Patient with seen and examined today on 11/14/2023, patient remains in the ICU, intubated and mechanically ventilated. Failed weaning trial yesterday and he became quite agitated and desaturated once he went off propofol. Had to be placed back on assist-control mode of mechanical ventilation and sedation. Today the patient is on assist-control rate of 22 tidal volume 500 FiO2 50% PEEP of 6. ABG showed a pO2 of 123 pCO2 51 pH of 7.32, and I cut down his FiO2 down to 45%, patient is receiving a unit of packed RBCs for hemoglobin of 6.9 today. Patient had an episode of A-fib RVR at 3 AM in the morning, seen by cardiology, and recommended patient goes on amiodarone. Still requiring norepinephrine at 0.05 mg/kg/min, he is on LR at 100 cc/h propofol at 50 mg/kg/min. Remains empirically on Zosyn for aspiration pneumonia. My plan today is transitioning the patient to Precedex, hopefully discontinue propofol, and at least give the patient a decent weaning trial or at least check weaning parameters before we proceed to weaning trial. Chest x-ray continues to show evidence of pneumonia mostly in the left lung and left lower lobe more specifically. Some pulmonary vascular congestion is noted with interstitial edema, small pleural effusion is also noted/left side. WBC count today is 12 hemoglobin 6.9 basic metabolic profile is normal bicarb is 25, BUN is 25 creatinine is improving down to 1.21 from 1.57 yesterday Patient was evaluated today on 11/15/2023, patient remains in the ICU, he was extubated yesterday, and his extubation was relatively uneventful. However the patient continues to have nasogastric tube in place, his pathology report came back showing non-Hodgkin's lymphoma, patient has gastric outlet obstruction, and the recommendation by GI is to consult surgery for a jejunostomy tube which is appropriate. Patient will be seen today by oncology and he will be seen by general surgery. In the meantime patient is comfortable, he is on 5 L nasal cannula he has LR running at 100 cc/h, he is remains on Zosyn for aspiration pneumonia remains on amiodarone which was started by cardiology for atrial fibrillation with RVR, presently in sinus rhythm. Cannot switch him to oral because of the fact that remains n.p.o., patient remains on TPN. WBC count is 10.7 hemoglobin 7.5 electrolytes are normal renal profile is normal, creatinine normalized to 0.96 Patient was evaluated today on 11/16/2023, remains in the ICU, on 5 L nasal cannula remains on amiodarone at 0.5 mg/min remains on LR at 100 cc/h, however his chest x-ray is showing some component of interstitial edema or could be findings related to his recent episode of aspiration/aspiration pneumonia, nonetheless the patient seems to be a bit symptomatic, he has intermittent cough and wheezing, I am recommending Lasix 40 mg IV push, cut down his IV fluid to 50 cc/h, continue Zosyn, patient will be placed on DuoNeb updrafts and on Solu- Medrol. Patient is scheduled to have jejunostomy-tube placement today. WBC count is 13 hemoglobin 7.7 basic metabolic profile is normal and renal profile is normal Patient was evaluated today on 11/17/2023, patient underwent uneventful placement of a jejunostomy tube yesterday, in the ICU on 5 L, patient is relatively stable, not in any distress, patient continues to have nasogastric tube in place although he did have a J-tube placed yesterday. Patient was seen by oncology for his non-Hodgkin's lymphoma involving the gastric outlet. Today's x-ray showed evidence of pneumonia/bilateral interstitial infiltrate/edema patient was given a dose of Lasix, I reminded the patient had an aspiration episode which was significant. And he required intubation mechanical ventilation for a few days.WBC count today is 9.1 hemoglobin 7.9 electrolytes are normal renal profile is normal hence I plan to transfer the patient out of the ICU to a cardiac floor. And hopefully discharge planning in the next 2 days for The patient was seen today November 18, 2023 in follow-up in the intensive care unit. He is currently sitting up in bed. Awake and alert in no acute distress. He is maintaining O2 saturations in the 90s on 5 L/min per nasal cannula. Glucose 177. Remains on DuoNeb inhalations and Solu-Medrol. Antibiotics in the form of Zosyn. He has a J-tube in place. He was initiated on vital AF 1.2 at 10 mL an hour with a goal of 82 mL/h The patient is seen today November 19, 2023 in follow-up in the intensive care unit. He is a regular medical floor overflow patient. He is currently sitting up in a chair. Awake and alert in no acute distress. He is maintaining O2 saturations in the 90s on 5 L/min per nasal cannula. No IV fluids. He denies any worsening shortness of breath, cough or congestion. He is having some issues with diarrhea. He remains on Zosyn. He is receiving vital AF at 55 mL/h with a goal of 82 mL/h. Glucose 161. Solu-Medrol, DuoNeb inhalations. The patient is seen today November 20, 2023 in follow-up on the regular medical floor. He is currently up in a chair at the bedside. Awake and alert in no acute distress. Denies any worsening shortness of breath, cough or congestion. He is maintaining O2 saturation in the 90s on 3 L/min per nasal cannula. He continues on Zosyn. Continues on bronchodilators and steroids. White count 12.3. Hemoglobin 9.0. Platelets 258. Glucose 168. He is not tolerating his tube feeds as he has developed diarrhea. C. difficile screen was negative. Abdominal series revealed cardiomegaly with left basilar acute infiltrate and/or atelectasis. Overall nonspecific bowel gas pattern. A small bowel obstruction needs to be considered. Objective - Vital Signs Vital signs: Vital Signs Temp 97.9 F 11/20/23 07:03 Pulse 69 11/20/23 10:22 Resp 16 11/20/23 07:03 BP 150/87 11/20/23 07:03 Pulse Ox 87 L 11/20/23 10:22 FiO2 40 11/16/23 13:09 Intake & Output 11/19/23 11/20/23 11/20/23 18:59 06:59 18:59 Intake Total 700 Output Total 1 Balance 699 Weight 98.4 kg 94.8 kg 94.8 kg Intake: IV 300 Lactated Ringers 1,000 ml 100 @ 50 mls/hr IV .Q20H [facility] Rx#:[id number] Piperacillin-Tazobactam 3 200 .375 gm In Sodium Chloride 0.9% 100 ml @ 25 mls/hr IVPB Q8HR [facility] Rx# :[id number] Tube Feeding 340 Other 60 Output: Stool 1 Other: Voiding Method Urinal # Voids 1 # Bowel Movements 5 - Exam GENERAL EXAM: Alert, pleasant 73-year-old male, up in a chair, on 3 L nasal cannula, in no apparent distress. HEAD: Normocephalic. EYES: Normal reaction of pupils, equal size. NOSE: Clear with pink turbinates. THROAT: No erythema or exudates. NECK: No masses, no JVD. CHEST: No chest wall deformity. LUNGS: Equal air entry with few scattered rhonchi. CVS: S1 and S2 normal with no audible murmur, regular rhythm. ABDOMEN: J-tube exit site clean and dry. No hepatosplenomegaly, normal bowel sounds, no guarding or rigidity. SPINE: No scoliosis or deformity SKIN: No rashes CENTRAL NERVOUS SYSTEM: No focal deficits, tone is normal in all 4 extremities. EXTREMITIES: There is no peripheral edema. No clubbing, no cyanosis. Peripheral pulses are intact. - Labs CBC & Chem 7: 11/20/23 03:31 11/17/23 05:57 Labs: Abnormal Lab Results - Last 24 Hours (Table) 11/19/23 11/19/23 11/19/23 Range/Units 12:24 18:17 23:56 WBC (4.50-10.00) X 10*3/uL RBC (4.40-5.60) X 10*6/uL Hgb (13.0-17.0) g/dL Hct (39.6-50.0) % MCH (27.0-32.0) pg MCHC (32.0-37.0) g/dL RDW (11.5-14.5) % Immature Gran # (0.00-0.04) X 10*3/uL Neutrophils # (1.80-7.70) X 10*3/uL Eosinophils # (0.04-0.35) X 10*3/uL NRBC/100 WBC Diff (0.00-0.01) X 10*3/uL POC Glucose (mg/dL) 181 H 183 H 176 H (70-110) mg/dL 11/20/23 11/20/23 11/20/23 Range/Units 03:31 05:54 08:13 WBC 12.39 H (4.50-10.00) X 10*3/uL RBC 3.44 L (4.40-5.60) X 10*6/uL Hgb 9.0 L (13.0-17.0) g/dL Hct 30.6 L (39.6-50.0) % MCH 26.2 L (27.0-32.0) pg MCHC 29.4 L (32.0-37.0) g/dL RDW 16.3 H (11.5-14.5) % Immature Gran # 0.26 H (0.00-0.04) X 10*3/uL Neutrophils # 10.31 H (1.80-7.70) X 10*3/uL Eosinophils # 0 L (0.04-0.35) X 10*3/uL NRBC/100 WBC Diff 0.05 H (0.00-0.01) X 10*3/uL POC Glucose (mg/dL) 176 H 168 H (70-110) mg/dL Assessment and Plan Assessment: Acute hypoxic respiratory failure requiring intubation mechanical ventilation secondary to aspiration during EGD on 11/12/2023. Patient was extubated on 11/14/2023 and tolerated the extubation well Status post J-tube placement 11/16/2023, postoperative day #4 Acute aspiration pneumonia Acute aspiration during upper endoscopy most likely secondary to gastric outlet obstruction secondary to non-Hodgkin's lymphoma based on the pathology from stomach biopsies Chronic abdominal pain, secondary to lymphoma Unexplained weight loss most likely secondary non-Hodgkin's lymphoma involving the stomach Paroxysmal atrial fibrillation, addressed by cardiology Plan: The patient was seen and evaluated Imaging, labs and medications reviewed Titrate down the FiO2 as tolerated Plan is for outpatient PET scan We will continue to follow I have personally seen and examined the patient, performed the documentation and the assessment and plan as written. Number of minutes spent on the visit: 10.
[2023-11-20] MEDS: FUROSEMIDE 10 MG/ML 4 ML VIAL IV STA (12:09)
[2023-11-20] MEDS: IOPAMIDOL CONTRAST (ORAL USE) VIAL PO PRN (12:09)
[2023-11-20 12:22] LABS: African American GFR (CKD) 90 (>60 ml/min/1.73 sqM); Blood Urea Nitrogen 42 mg/dL (9-20); Non-African American GFR(CKD) 77 (>60 ml/min/1.73 sqM)
[2023-11-20 13:01] LABS: Glucose,Whole Blood 171 mg/dL (70-110)
--- NOTE | 2023-11-20 13:19 | P.PN ---
Subjective Progress Note Date: 11/20/23 CHIEF COMPLAINT: Abdominal pain HISTORY OF PRESENT ILLNESS: Patient was transferred out of the ICU yesterday. Patient's tube feed formula was changed yesterday due to abdominal cramping and diarrhea. Tube feeds were restarted and patient again had significant abdominal pain, diarrhea and felt more distended. Tube feeds were stopped. And J-tube was placed to drain to gravity. Patient continues to complain of abdominal distention. Denies any nausea or vomiting. Acute abdominal series had reported an overall nonspecific bowel gas pattern. A mid small bowel obstruction needs to be considered. WBC is up from 9.1-12.3 PHYSICAL EXAM: VITAL SIGNS: Reviewed. GENERAL: Well-developed in no acute distress. CHEST: Mediport site right chest, clean dry and intact ABDOMEN: Soft. Mildly distended. Mild tenderness around J-tube site NEUROLOGIC: Alert and oriented. Cranial nerves II through XII grossly intact. ASSESSMENT: 1. Non-Hodgkin lymphoma noted on stomach biopsy from EGD 2. Severe protein calorie malnutrition 3. Diarrhea 4. Aspiration pneumonia PLAN: -CT scan abdomen pelvis with oral and IV contrast ordered for further evaluation of abdominal pain and distention -Continue to hold tube feeds -Continue to keep J-tube to drain to gravity -Repeat CBC in a.m. Physician Key Worker note has been reviewed by physician. Signing provider agrees with the documented findings, assessment, and plan of care. Objective - Vital Signs Vital signs: Vital Signs Temp 98.0 F 11/20/23 12:38 Pulse 68 11/20/23 12:38 Resp 16 11/20/23 12:38 BP 148/83 11/20/23 12:38 Pulse Ox 90 L 11/20/23 12:38 FiO2 40 11/16/23 13:09 Intake & Output 11/19/23 11/20/23 11/20/23 18:59 06:59 18:59 Intake Total 700 Output Total 1 Balance 699 Weight 98.4 kg 94.8 kg 94.8 kg Intake: IV 300 Lactated Ringers 1,000 ml 100 @ 50 mls/hr IV .Q20H [facility] Rx#:[id number] Piperacillin-Tazobactam 3 200 .375 gm In Sodium Chloride 0.9% 100 ml @ 25 mls/hr IVPB Q8HR [facility] Rx# :[id number] Tube Feeding 340 Other 60 Output: Stool 1 Other: Voiding Method Urinal # Voids 1 # Bowel Movements 5 - Labs CBC & Chem 7: 11/20/23 03:31 11/20/23 03:31 Labs: Abnormal Lab Results - Last 24 Hours (Table) 11/19/23 11/19/23 11/20/23 Range/Units 18:17 23:56 03:31 WBC 12.39 H (4.50-10.00) X 10*3/uL RBC 3.44 L (4.40-5.60) X 10*6/uL Hgb 9.0 L (13.0-17.0) g/dL Hct 30.6 L (39.6-50.0) % MCH 26.2 L (27.0-32.0) pg MCHC 29.4 L (32.0-37.0) g/dL RDW 16.3 H (11.5-14.5) % Immature Gran # 0.26 H (0.00-0.04) X 10*3/uL Neutrophils # 10.31 H (1.80-7.70) X 10*3/uL Eosinophils # 0 L (0.04-0.35) X 10*3/uL NRBC/100 WBC Diff 0.05 H (0.00-0.01) X 10*3/uL BUN (9-20) mg/dL POC Glucose (mg/dL) 183 H 176 H (70-110) mg/dL 11/20/23 11/20/23 11/20/23 Range/Units 03:31 05:54 08:13 WBC (4.50-10.00) X 10*3/uL RBC (4.40-5.60) X 10*6/uL Hgb (13.0-17.0) g/dL Hct (39.6-50.0) % MCH (27.0-32.0) pg MCHC (32.0-37.0) g/dL RDW (11.5-14.5) % Immature Gran # (0.00-0.04) X 10*3/uL Neutrophils # (1.80-7.70) X 10*3/uL Eosinophils # (0.04-0.35) X 10*3/uL NRBC/100 WBC Diff (0.00-0.01) X 10*3/uL BUN 42 H (9-20) mg/dL POC Glucose (mg/dL) 176 H 168 H (70-110) mg/dL 11/20/23 Range/Units 12:41 WBC (4.50-10.00) X 10*3/uL RBC (4.40-5.60) X 10*6/uL Hgb (13.0-17.0) g/dL Hct (39.6-50.0) % MCH (27.0-32.0) pg MCHC (32.0-37.0) g/dL RDW (11.5-14.5) % Immature Gran # (0.00-0.04) X 10*3/uL Neutrophils # (1.80-7.70) X 10*3/uL Eosinophils # (0.04-0.35) X 10*3/uL NRBC/100 WBC Diff (0.00-0.01) X 10*3/uL BUN (9-20) mg/dL POC Glucose (mg/dL) 171 H (70-110) mg/dL Assessment and Plan Assessment: 73 yo male w/ hodkins lymphone jejunostomy placed not tolerating tube feeds follow up ctap w/ iv and po contrast Time with Patient: Less than 30
[2023-11-20] MEDS: PSYLLIUM HUSK 100% 6 GM PACKET PO SCH (14:13)
--- NOTE | 2023-11-20 14:27 | CT ---
EXAMINATION TYPE: CT abdomen pelvis w con DATE OF EXAM: 11/20/2023 COMPARISON: 10/29/2023 HISTORY: 73-year-old male abdominal pain TECHNIQUE: Contiguous axial scanning of the abdomen and pelvis following administration of 100 ml Iso marsha 300 IV contrast. Delayed images through the kidneys and coronal/sagittal reconstructions perform ed. CT DLP: 1851 mGycm Automated exposure control for dose reduction was used. FINDINGS: Heart upper limits of normal in size without pericardial effusion. Possible catheter enteri ng the right atrium and possibly just crossing across the tricuspid valve. Trace bilateral pleural effusions with prominent patchy bibasilar opacities. Background interstitial fibrosis. Tiny hiatal hernia. New trace abdominal abdominal ascites and mild to moderate pelvic ascites. Redemonstrated diffuse gastric fold thickening. The current appearance is not as masslike as on prior exam. A 2.9 cm enlarged lymph node remains posterior to the gastric antrum. A jejunostomy tube is present with contrast material administered. These bowel loops are nondilated a lthough way to the colon. Colon also is collapsed. The jejunostomy tube seems to enter mid abdomen wi thin the ileum. Small bowel proximal to this is dilated with air-fluid levels, dilated up to 3.7 cm. However, the proximal jejunum is also collapsed. There is generalized anasarca change and mild mesenteric edema. No free air. No focal liver lesion or biliary ductal dilatation. Portal venous system is patent. Tiny dependent gallstones measuring up to 4 mm. No abnormal gallbladder distention. Adrenal glands, kidneys, spleen, and pancreas show no gross abnormal value. Colon shows left-sided diverticulosis, greatest in the sigmoid colon. Mild circumferential bladder wall thickening can be correlated clinically. Prostate gland measures 4. 4 cm wide. Mild to moderate pelvic ascites. No lymphadenopathy seen. Bones: DISH within the lower thoracic spine. Mild to moderate degenerative disc disease L5-S1. IMPRESSION: 1. MID ABDOMINAL JEJUNOSTOMY TUBE APPEARS TO ENTER THE ILEUM. TUBE ENTRY SITE IS A POSSIBLE TRANSITIO N POINT FOR SMALL BOWEL OBSTRUCTION WITH LOOPS DILATED UP TO 3.7 CM. HOWEVER, WE NOTE DISCREPANT FIND INGS THE STOMACH AND PROXIMAL SMALL BOWEL IS NOT DILATED. CLOSE FOLLOW-UP ALONG WITH SURGICAL EVAL UATION IS ADVISED. 2. NEW GENERALIZED ANASARCA with mild abdominopelvic ascites. 3. Additional trace bilateral pleural effusions with patchy bibasilar infiltrates. Correlate for infe ctious or aspiration pneumonitis. 4. Gastric fold thickening is not as masslike as on the patient's 10/29/2023 CT. Consider gastritis. H owever, an abnormally enlarged 2.9 cm peripancreatic lymph node remains. Neoplastic etiology remains to be excluded. 5. CVC catheter low in the right atrium, possibly traversing the tricuspid valve. 6. Cholelithiasis. Mild circumferential bladder wall thickening may be chronic for the patient. Corre late to exclude cystitis. [facility], , 11/20/2023 2:25 PM
[2023-11-20 17:35] LABS: Glucose,Whole Blood 176 mg/dL (70-110)
[2023-11-20 20:30] LABS: Glucose,Whole Blood 153 mg/dL (70-110)
--- NOTE | 2023-11-20 23:20 | P.PN ---
Progress Note - Text Progress Note Date: 11/20/23 Chief Complaint: Aspirated This is a 73-year-old patient, follows with Dr. Patricia Deal. Patient was seen this morning in the ICU. Patient's and daughter at the bedside. History obtained predominantly by the . Patient been having trouble with his stomach symptoms for close to 8 months. Patient underwent EGD by Dr. Sahara Cheng yesterday. Patient was found to have ulcerated around the antrum and obstruction to the pylorus. A lot of retained food was found. Patient aspirated. Had to be intubated and brought to the ICU. On a Levophed drip. FiO2 50 and a PEEP of 6. Patient had been losing weight lost about 25 pounds. Previously has a history of mitral valve prolapse. November 13: ICU. Patient remains on Precedex drip and propofol drip. Did not do well attempted extubation yesterday. Patient been off Levophed. NG tube to suction. Spoke to patient's and son at the bedside. Biopsy results awaited. Hemoglobin dropped to 6.9 this morning. Get a unit of blood. November 14: ICU. Up in a chair. Extubated yesterday. NG tube to suction. at the bedside. 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 Oncology was consulted. They have ordered a port. Results discussed with Dr. Sahara Cheng. General surgery was consulted for J-tube placement. Discussed with at the bedside. Patient getting IV fluids, IV Zosyn,. Patient has been on IV amiodarone for A-fib-back in sinus rhythm. Multiple PACs. Did receive unit of blood yesterday. Also IV ferric gluconate. November 15: ICU. Patient earlier today underwent jejunostomy tube placement and a port placement. Patient awake. Answering questions. NG tube to suction present. Updated patient's . Patient remains on IV amiodarone and IV Zosyn. November 16: ICU. Up in the chair. NG tube present but not to suction. Trickle feeding through the jejunostomy tube should be started today. Dietitian has been on board. IV Zosyn to continue. Patient's and his sister at the bedside. Discussed. Also spoke with Dr. Serna. Given patient has no other predisposing cardiac factors for the A-fib except acute illness. His LV function is normal. Left atrium is normal. He has already been loaded with IV amiodarone. Will switch him to oral Lopressor 12.5 twice daily. Hence will DC amiodarone. Patient yesterday had wheezing was put on bronchodilators steroids per pulmonary. November 17: Propped up in bed. NG tube was discontinued. Sinus rhythm. Remains NPO. Getting G-tube feeding at 40 cc an hour. Dietitian following. Get arrangements done for DC home tomorrow including tube feeding. Increase activity discussed with patient and elder daughter at the bedside. Still requiring oxygen. Incentive spirometry. November 18: Patient up in recliner. Earlier today spoke to geriatric social work professor David. Informed patient is rather weak and will be going to the [facility]. Looking at authorization. Justinies came to the room and spoke to patient his and his daughter. They are very keen to take the patient home as 3 daughters all nurses and they will take care of him at home. Patient earlier today to abdominal cramping and some loose stools.'s tube feeding was held. Told the nurse to start back at the rate of 40 cc an hour. He was before the getting it at 55 cc an hour. Incentive spirometry was again emphasized. Patient remains on 4 L of oxygen. November 19: I saw the patient this morning. Hence I am in the evening. Morning was sitting with his sons. Has some edema. Lungs had crackles I gave him 40 mg of Lasix. He did make good urine. Tube feeding was held from the previous evening of because of abdominal cramping. Acute abdominal series showed nonspecific bowel gas pattern and SBO to be ruled out. Family and patient was updated. Told him discharge will depend on day by day. Later this afternoon CT scanAnd abdomen pelvis done. Showed small bowel to be 3 point centimeter dilated. Some anasarca. Gastric findings. Gallstones. Later spoke to Dr. Irby from general surgery. They will further review and decide about further plan of action. Will give further dose of IV Lasix because of fluid overload from likely hypoalbuminemia and IV fluids previously received. Patient may take his pills by mouth. Total time spent today about 1 hour with over 40 minutes of discussion. Patient did state his breathing is better after Lasix this morning. Active Medications Acetaminophen (Acetaminophen Tab 325 Mg Tab) 650 mg PO Q4HR PRN PRN Reason: Fever and/ or Pain Albuterol/Ipratropium (Ipratropium-Albuterol 3 Ml Neb) 3 ml INHALATION RT-QID [facility] Last Admin: 11/20/23 20:24 Dose: Not Given Dextrose/Water (Dextrose 50% Syringe 50 Ml) 25 ml IVP PER PROTOCOL PRN; Protocol PRN Reason: Hypoglycemia Dextrose/Water (Dextrose 50% Syringe 50 Ml) 50 ml IVP PER PROTOCOL PRN; Protocol PRN Reason: Hypoglycemia Furosemide (Furosemide 10 Mg/Ml 4 Ml Vial) 40 mg IV Q6HR [facility] Stop: 12/01/23 06:01 Piperacillin Sod/Tazobactam (Sod 3.375 gm/ Sodium Chloride) 100 mls @ 25 mls/hr IVPB Q8HR [facility]; Protocol Last Admin: 11/20/23 16:02 Dose: 25 mls/hr Insulin Aspart (Insulin Aspart (Novolog) 100 Unit/Ml Vial) 0 unit SQ ACHS [facility]; Protocol Last Admin: 11/20/23 21:34 Dose: Not Given Lidocaine HCl (Lidocaine 1% (10mg/Ml) For Iv Start) 0.1 ml INTRADERMA PER PROTOCOL PRN PRN Reason: IV Start Stop: 12/12/23 05:39 Methylprednisolone Sodium Succinate (Methylprednisolone Sod Succi 40 Mg/Ml 1 Ml Vial) 40 mg IV Q12HR [facility] Last Admin: 11/20/23 21:45 Dose: 40 mg Metoprolol Tartrate (Metoprolol Tartrate 12.5 Mg Tab) 12.5 mg PO BID [facility] Last Admin: 11/20/23 21:45 Dose: 12.5 mg Miscellaneous Information (Magnesium Replacement Protocol 1 Each Misc) 1 each MISCELLANE DAILY PRN; Protocol PRN Reason: Per Protocol Morphine Sulfate (Morphine Sulfate 4 Mg/Ml Syringe) 4 mg IVP Q4HR PRN PRN Reason: Pain Naloxone HCl (Naloxone 0.4 Mg/Ml 1 Ml Vial) 0.2 mg IV Q2M PRN PRN Reason: Opioid Reversal Pantoprazole Sodium (Pantoprazole 40 Mg/10 Ml Vial) 40 mg IVP BID [facility] Last Admin: 11/20/23 21:45 Dose: 40 mg Past medical history to include: GERD Social history: . No smoking. Physical examination: VITAL SIGNS: 98, 70, 18, 147 x 73, 91% on 3 L GENERAL: In a recliner. Bit tired. Right chest wall port EYES: Pupils equal. Conjunctiva edouard l. HEENT: External appearance of nose and ears normal, oral cavity grossly normal. NECK: JVD unable to assess; masses not palpable. HEART: First and second heart sounds are normal; edema present LUNGS: Respiratory rate increased, basal crackles ABDOMEN: Soft, nontender, liver spleen not palpable, no masses palpable..jejunostomy tube. PSYCH: Awake answering questions INVESTIGATIONS, reviewed in the clinical context: CT scan abdomen [November 19] possible small bowel obstruction Stool: C. difficile negative November 16: White count 9.1 hemoglobin 7.9 platelets 259 potassium 4.3 creatinine 0.92 November 15: WBC 13 hemoglobin 7.7 platelets 248 potassium 4.3 creatinine 0.87 2D echo: EF 55 to 60%. November 14: White count 10.7 hemoglobin 7.5 platelets 239 potassium 4.2 creatinine 0.96 Kidneys bladder: Unremarkable November 13: White count 12 hemoglobin 6.9 platelets 276 potassium 4.4 creatinine 1.21 magnesium 1.8 iron 6 TIBC 365% saturation 1.64 transferrin 261 ferritin 34.6 B12 569 folate 4.4 November 12: White count 14 hemoglobin 7.6 platelets 333 sodium 136 BUN 26 creatinine 1.57 November 11: Creatinine 0.86 EGD: Large amount of retained solid liquid food noted in the stomach. Large superficial gastric antral ulceration involving most of the antrum extending into the pylorus causing pyloric stenosis. Biopsies were obtained. Chest x-ray film personally reviewed by me-scattered infiltrates Assessment plan: -Aspiration pneumonitis bilateral from retained gastric contents mostly food and liquids, causing acute hypoxic respiratory failure: IV Zosyn -Acute pulmonary edema and fluid overload from hypoalbuminemic state and fluids from IV.: New diagnosis IV Lasix given this morning 1 dose. Give 2 more dose of 40 mg tomorrow. -Possible small bowel obstruction. Unclear if related to jejunostomy tube. Bowel involvement with lymphoma also possible.: New diagnosis General surgery on the case. Following. -Acute kidney injury. Possible ATN from hypotensive shock: Corrected Strict I's and O's. Follow renal function. Renal ultrasound unremarkable Seen by nephrology. IV fluids. I's and O's. -Nutrition Jejunostomy tube placed November [address] Ewing Tube feeding temporarily held because o possible small bowel obstruction -Acute critical care transitional atrial fibrillation-sinus rhythm IV amiodarone. Discussed with Dr. Serna from cardiology. Stop amiodarone. Lopressor 12.5 twice daily -Acute hypoxic respiratory failure from aspiration pneumonia, status post ventilator assisted: Now 3 L nasal cannula Incentive spirometry -Normocytic anemia likely o secondary underlying lymphoma Iron deficiency anemia Received a unit of blood. IV iron. -Acute blood loss anemia, could be oozing from biopsy site in the stomach Received blood -GERD PPI -Acute diarrhea secondary to tube feeding. C. difficile ruled out. Controlled -Large superficial gastric antral ulceration involving the gastric antrum extending into the pylorus with gastric outlet obstruction. 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 Port placed. For outpatient PET scan. -Full code IV Lasix. NPO. Jejunostomy tube feeding held. N.p.o. after midnight. May take pills by mouth. Discussed as above Past Medical History Past Medical History: GERD/Reflux History of Any Multi-Drug Resistant Organisms: None Reported Past Surgical History: Heart Catheterization Additional Past Surgical History / Comment(s): colonsocopy,spinal injection, Past Anesthesia/Blood Transfusion Reactions: No Reported Reaction Past Psychological History: No Psychological Hx Reported Smoking Status: Never smoker Past Alcohol Use History: None Reported Past Drug Use History: None Reported
[2023-11-21] MEDS: FUROSEMIDE 10 MG/ML 4 ML VIAL IV SCH (00:14)
[2023-11-21] MEDS: MORPHINE SULFATE 4 MG/ML SYRINGE IVP PRN (00:25)
[2023-11-21 04:25] LABS: African American GFR (CKD) >90 (>60 ml/min/1.73 sqM); Anion Gap 6 mmol/L; Blood Urea Nitrogen 42 mg/dL (9-20); Calcium 8.5 mg/dL (8.4-10.2); Carbon Dioxide 30 mmol/L (22-30); Chloride 103 mmol/L (98-107); Glucose 164 mg/dL (74-99); Non-African American GFR(CKD) 81 (>60 ml/min/1.73 sqM); Potassium 4.1 mmol/L (3.5-5.1); Sodium 139 mmol/L (137-145)
[2023-11-21] MEDS: HYDROmorphone 0.5 MG/0.5 ML SYRINGE IM STA (07:18)
[2023-11-21 07:24] LABS: Glucose,Whole Blood 158 mg/dL (70-110)
[2023-11-21 10:12] LABS: Basophils # (A) 0.02 X 10*3/uL (0.00-0.10); Basophils % (A) 0.1 %; Eosinophils # (A) 0 X 10*3/uL (0.04-0.35); Eosinophils % (A) 0 %; HCT 28.7 % (39.6-50.0); HGB 8.8 g/dL (13.0-17.0); Lymphocytes # (A) 1.38 X 10*3/uL (0.90-5.00); Lymphocytes % (A) 9.6 %; MCH 27.7 pg (27.0-32.0); MCHC 30.7 g/dL (32.0-37.0); MCV 90.3 FL (80.0-97.0); Mean Platelet Volume 10.7 FL (9.5-12.2); Monocytes # (A) 0.44 X 10*3/uL (0.20-1.00); NRBC Per 100 WBC 0.02 X 10*3/uL (0.00-0.01); Neutrophils # (A) 12.44 X 10*3/uL (1.80-7.70); Neutrophils % (A) 86.3 %; Platelet Count 229 X 10*3/uL (140-440); RBC 3.18 X 10*6/uL (4.40-5.60); RBC Morphology Normal (Normal); WBC 14.43 X 10*3/uL (4.50-10.00)
--- NOTE | 2023-11-21 11:34 | P.PN ---
Subjective Progress Note Date: 11/21/23 CHIEF COMPLAINT: Abdominal pain HISTORY OF PRESENT ILLNESS: Patient continues to complain of left-sided a bdominal pain near the J-tube site. He had a CT scan abdomen and pelvis mid abdominal jejunostomy tube appears to enter the ileum. Tube entry site is a possible transition point for the small bowel obstruction with loops dilated up to 3.7 cm. Patient reports no longer having bowel movements. There has been no output through the J-tube since has been placed to drainage. Afebrile. WBC is up from 12.3-14.43. Patient was started on Solu-Medrol yesterday. This may contribute to his white count. PHYSICAL EXAM: VITAL SIGNS: Reviewed. GENERAL: Well-developed in no acute distress. CHEST: Mediport site right chest, clean dry and intact ABDOMEN: Soft. Mildly distended. Mild tenderness around J-tube site on the left side of the abdomen NEUROLOGIC: Alert and oriented. Cranial nerves II through XII grossly intact. ASSESSMENT: 1. Possible small bowel obstruction noted on CT scan with transition point reported at the J-tube site 2. Non-Hodgkin lymphoma noted on stomach biopsy from EGD 3. Severe protein calorie malnutrition 4. Aspiration pneumonia PLAN: -Further recommendations forthcoming per surgeon -Continue to hold tube feeds -Continue antibiotics Physician Flame Planer note has been reviewed by physician. Signing provider agrees with the documented findings, assessment, and plan of care. Objective - Vital Signs Vital signs: Vital Signs Temp 97.8 F 11/21/23 07:02 Pulse 86 11/21/23 08:34 Resp 16 11/21/23 07:02 BP 155/72 11/21/23 07:02 Pulse Ox 95 11/21/23 08:38 FiO2 40 11/16/23 13:09 Intake & Output 11/20/23 11/21/23 11/21/23 18:59 06:59 18:59 Intake Total 200 Balance 200 Weight 94.8 kg 93.2 kg Intake: IV 200 Piperacillin-Tazobactam 3 200 .375 gm In Sodium Chloride 0.9% 100 ml @ 25 mls/hr IVPB Q8HR [facility] Rx# :[id number] Other: Voiding Method Bedside Commode Bedside Commode Urinal Urinal # Voids 3 1 # Bowel Movements 2 - Labs CBC & Chem 7: 11/21/23 02:56 11/21/23 02:56 Labs: Abnormal Lab Results - Last 24 Hours (Table) 11/20/23 11/20/23 11/20/23 Range/Units 03:31 12:41 17:32 WBC (4.50-10.00) X 10*3/uL RBC (4.40-5.60) X 10*6/uL Hgb (13.0-17.0) g/dL Hct (39.6-50.0) % MCHC (32.0-37.0) g/dL RDW (11.5-14.5) % Immature Gran # (0.00-0.04) X 10*3/uL Neutrophils # (1.80-7.70) X 10*3/uL Eosinophils # (0.04-0.35) X 10*3/uL NRBC/100 WBC Diff (0.00-0.01) X 10*3/uL BUN 42 H (9-20) mg/dL Glucose (74-99) mg/dL POC Glucose (mg/dL) 171 H 176 H (70-110) mg/dL 11/20/23 11/21/23 11/21/23 Range/Units 20:28 02:56 02:56 WBC 14.43 H (4.50-10.00) X 10*3/uL RBC 3.18 L (4.40-5.60) X 10*6/uL Hgb 8.8 L (13.0-17.0) g/dL Hct 28.7 L (39.6-50.0) % MCHC 30.7 L (32.0-37.0) g/dL RDW 17.0 H (11.5-14.5) % Immature Gran # 0.15 H (0.00-0.04) X 10*3/uL Neutrophils # 12.44 H (1.80-7.70) X 10*3/uL Eosinophils # 0 L (0.04-0.35) X 10*3/uL NRBC/100 WBC Diff 0.02 H (0.00-0.01) X 10*3/uL BUN 42 H (9-20) mg/dL Glucose 164 H (74-99) mg/dL POC Glucose (mg/dL) 153 H (70-110) mg/dL 11/21/23 Range/Units 07:07 WBC (4.50-10.00) X 10*3/uL RBC (4.40-5.60) X 10*6/uL Hgb (13.0-17.0) g/dL Hct (39.6-50.0) % MCHC (32.0-37.0) g/dL RDW (11.5-14.5) % Immature Gran # (0.00-0.04) X 10*3/uL Neutrophils # (1.80-7.70) X 10*3/uL Eosinophils # (0.04-0.35) X 10*3/uL NRBC/100 WBC Diff (0.00-0.01) X 10*3/uL BUN (9-20) mg/dL Glucose (74-99) mg/dL POC Glucose (mg/dL) 158 H (70-110) mg/dL
--- NOTE | 2023-11-21 11:58 | P.PN ---
Subjective Progress Note Date: 11/21/23 Principal diagnosis: Abdominal pain. This is a 73-year-old white male with history of chronic abdominal pain for the last 8 months has been treated with Protonix 40 mg daily for the last 3 months with no improvement. Patient had a 22 pound weight loss in the last [address] of the abdomen and pelvis 3 weeks ago showed thickening of the antral wall with pathological adenopathy posterior to the stomach suspicious of neoplasm. Today the patient underwent elective upper endoscopy to evaluate further, patient received IV sedation by anesthesia endoscope was inserted into the mouth, esophagus was intubated without any difficulty there was evidence of large amount of liquid and solid food noted in the stomach suggestive of gastric outlet obstruction. Scope could not be advanced through the pylorus, however in the prepyloric area there was a large superficial ulceration identified with multiple biopsies were done from this area. The body cardia and fundus could not adequately visualize because of large amount of retained food in the stomach. Scope was withdrawn back to the stomach and upon careful examination the mucosa of the antrum body and cardia as well as the fundus appeared normal. Procedure was being performed and biopsies were done patient threw up and subsequently became hypoxic there was clearly evidence of witnessed aspiration anesthesia intubated the patient, procedure was terminated, and the patient was transferred to the ICU, this consult was initiated. Patient is now on assist- control rate of 20 tidal volume 500 FiO2 70% PEEP of 10 ABG is pending, earlier ABG showed profound hypoxia patient is on propofol at 50 mcg/kg/min, next ABG is pending. Chest x-ray showed chronic changes without evidence of acute pulmonary disease. Patient was seen and examined today on 11/13/2023, remains in the ICU, intubated mechanically ventilated, on assist-control rate of 20 tidal volume 500 FiO2 50% and PEEP of 10 ABG showed a pO2 of 143 pCO2 47 pH of 7.28 hence PEEP was cut down to 6, and increased rate to 22. Patient is still requiring IV fluid at 100 cc/h/LR. Requiring norepinephrine at 0.08 mcg/kg/min he is also on propofol at 50 mg/kg/min antibiotics arce patient is receiving Zosyn. Chest x-ray is showing worsening infiltrates specially in the left lung. This could be related to aspiration pneumonia. Patient had witnessed aspiration during endoscopy/upper endoscopy.WBC count is 14 hemoglobin 7.6 basic metabolic profile is normal BUN is 26 creatinine 1.57 obviously the patient sustained some acute kidney injury baseline creatinine 0.86 patient had received fluids over the last 24 hours, remains on fluids at 100 cc/h Patient with seen and examined today on 11/14/2023, patient remains in the ICU, intubated and mechanically ventilated. Failed weaning trial yesterday and he became quite agitated and desaturated once he went off propofol. Had to be placed back on assist-control mode of mechanical ventilation and sedation. Today the patient is on assist-control rate of 22 tidal volume 500 FiO2 50% PEEP of 6. ABG showed a pO2 of 123 pCO2 51 pH of 7.32, and I cut down his FiO2 down to 45%, patient is receiving a unit of packed RBCs for hemoglobin of 6.9 today. Patient had an episode of A-fib RVR at 3 AM in the morning, seen by cardiology, and recommended patient goes on amiodarone. Still requiring norepinephrine at 0.05 mg/kg/min, he is on LR at 100 cc/h propofol at 50 mg/kg/min. Remains empirically on Zosyn for aspiration pneumonia. My plan today is transitioning the patient to Precedex, hopefully discontinue propofol, and at least give the patient a decent weaning trial or at least check weaning parameters before we proceed to weaning trial. Chest x-ray continues to show evidence of pneumonia mostly in the left lung and left lower lobe more specifically. Some pulmonary vascular congestion is noted with interstitial edema, small pleural effusion is also noted/left side. WBC count today is 12 hemoglobin 6.9 basic metabolic profile is normal bicarb is 25, BUN is 25 creatinine is improving down to 1.21 from 1.57 yesterday Patient was evaluated today on 11/15/2023, patient remains in the ICU, he was extubated yesterday, and his extubation was relatively uneventful. However the patient continues to have nasogastric tube in place, his pathology report came back showing non-Hodgkin's lymphoma, patient has gastric outlet obstruction, and the recommendation by GI is to consult surgery for a jejunostomy tube which is appropriate. Patient will be seen today by oncology and [facility] In the meantime patient is comfortable, he is on 5 L nasal cannula he has LR running at 100 cc/h, he is remains on Zosyn for aspiration pneumonia remains on amiodarone which was started by cardiology for atrial fibrillation with RVR, presently in sinus rhythm. Cannot switch him to oral because of the fact that remains n.p.o., patient remains on TPN. WBC count is 10.7 hemoglobin 7.5 electrolytes are normal renal profile is normal, creatinine normalized to 0.96 Patient was evaluated today on 11/16/2023, remains in the ICU, on 5 L nasal cannula remains on amiodarone at 0.5 mg/min remains on LR at 100 cc/h, however his chest x-ray is showing some component of interstitial edema or could be findings related to his recent episode of aspiration/aspiration pneumonia, nonetheless the patient seems to be a bit symptomatic, he has intermittent cough and wheezing, I am recommending Lasix 40 mg IV push, cut down his IV fluid to 50 cc/h, continue Zosyn, patient will be placed on DuoNeb updrafts and on Solu- Medrol. Patient is scheduled to have jejunostomy-tube placement today. WBC count is 13 hemoglobin 7.7 basic metabolic profile is normal and renal profile is normal Patient was evaluated today on 11/17/2023, patient underwent uneventful placement of a jejunostomy tube yesterday, in the ICU on 5 L, patient is relatively stable, not in any distress, patient continues to have nasogastric tube in place although he did have a J-tube placed yesterday. Patient was seen by oncology for his non-Hodgkin's lymphoma involving the gastric outlet. Today's x-ray showed evidence of pneumonia/bilateral interstitial infiltrate/edema patient was given a dose of Lasix, I reminded the patient had an aspiration episode which was significant. And he required intubation mechanical ventilation for a few days.WBC count today is 9.1 hemoglobin 7.9 electrolytes are normal renal profile is normal hence I plan to transfer the patient out of the ICU to a cardiac floor. And hopefully discharge planning in the next 2 days for The patient was seen today November 18, 2023 in follow-up in the intensive care unit. He is currently sitting up in bed. Awake and alert in no acute distress. He is maintaining O2 saturations in the 90s on 5 L/min per nasal cannula. Glucose 177. Remains on DuoNeb inhalations and Solu-Medrol. Antibiotics in the form of Zosyn. He has a J-tube in place. He was initiated on vital AF 1.2 at 10 mL an hour with a goal of 82 mL/h The patient is seen today November 19, 2023 in follow-up in the intensive care unit. He is a regular medical floor overflow patient. He is currently sitting up in a chair. Awake and alert in no acute distress. He is maintaining O2 saturations in the 90s on 5 L/min per nasal cannula. No IV fluids. He denies any worsening shortness of breath, cough or congestion. He is having some issues with diarrhea. He remains on Zosyn. He is receiving vital AF at 55 mL/h with a goal of 82 mL/h. Glucose 161. Solu-Medrol, DuoNeb inhalations. The patient is seen today November 20, 2023 in follow-up on the regular medical floor. He is currently up in a chair at the bedside. Awake and alert in no acute distress. Denies any worsening shortness of breath, cough or congestion. He is maintaining O2 saturation in the 90s on 3 L/min per nasal cannula. He continues on Zosyn. Continues on bronchodilators and steroids. White count 12.3. Hemoglobin 9.0. Platelets 258. Glucose 168. He is not tolerating his tube feeds as he has developed diarrhea. C. difficile screen was negative. Abdominal series revealed cardiomegaly with left basilar acute infiltrate and/or atelectasis. Overall nonspecific bowel gas pattern. A small bowel obstruction needs to be considered. Progress note dated November 21, 2023. The patient is seen in room 517. The patient is currently on 3 L of oxygen. He continues on Zosyn. His biggest complaint has been abdominal discomfort and diarrhea. He did have a CT scan of the abdomen and pelvis. Current laboratory data includes a white count of 14.4, hemoglobin 8.8, hematocrit 28.7, and platelet count 229,000. Sodium 139, potassium 4.1, chlorides 103, CO2 30, BUN 42, creatinine 0.94. Glucose is 158. Calcium is 8.5. Objective - Vital Signs Vital signs: Vital Signs Temp 97.8 F 11/21/23 07:02 Pulse 86 11/21/23 08:34 Resp 16 11/21/23 07:02 BP 155/72 11/21/23 07:02 Pulse Ox 95 11/21/23 08:38 FiO2 40 11/16/23 13:09 Intake & Output 11/20/23 11/21/23 11/21/23 18:59 06:59 18:59 Intake Total 200 Balance 200 Weight 94.8 kg 93.2 kg Intake: IV 200 Piperacillin-Tazobactam 3 200 .375 gm In Sodium Chloride 0.9% 100 ml @ 25 mls/hr IVPB Q8HR [facility] Rx# :[id number] Other: Voiding Method Bedside Commode Bedside Commode Urinal Urinal # Voids 3 1 # Bowel Movements 2 - Exam No acute distress, oriented 3. Currently on 3 L nasal cannula. No respiratory distress. HEENT examination is grossly unremarkable. Mucous membranes are moist. No oral lesions. Neck supple. Full range of motion. No adenopathy thyromegaly or neck vein distention. Cardiovascular examination reveals regular rhythm rate. S1-S2 normal. No S3 or S4. No discernible murmur noted. Lungs reveal mild scattered rhonchi. No wheezes or crackles. Breath sounds equal. Saturations are adequate. Abdomen soft bowel sounds are heard. No masses or tenderness. J-tube is noted. No drainage. Extremities are intact. No cyanosis clubbing or edema. Skin is without rash or lesion. Neurologic examination is brief but nonfocal. - Labs CBC & Chem 7: 11/21/23 02:56 11/21/23 02:56 Labs: Abnormal Lab Results - Last 24 Hours (Table) 11/20/23 11/20/23 11/20/23 Range/Units 03:31 12:41 17:32 WBC (4.50-10.00) X 10*3/uL RBC (4.40-5.60) X 10*6/uL Hgb (13.0-17.0) g/dL Hct (39.6-50.0) % MCHC (32.0-37.0) g/dL RDW (11.5-14.5) % Immature Gran # (0.00-0.04) X 10*3/uL Neutrophils # (1.80-7.70) X 10*3/uL Eosinophils # (0.04-0.35) X 10*3/uL NRBC/100 WBC Diff (0.00-0.01) X 10*3/uL BUN 42 H (9-20) mg/dL Glucose (74-99) mg/dL POC Glucose (mg/dL) 171 H 176 H (70-110) mg/dL 11/20/23 11/21/23 11/21/23 Range/Units 20:28 02:56 02:56 WBC 14.43 H (4.50-10.00) X 10*3/uL RBC 3.18 L (4.40-5.60) X 10*6/uL Hgb 8.8 L (13.0-17.0) g/dL Hct 28.7 L (39.6-50.0) % MCHC 30.7 L (32.0-37.0) g/dL RDW 17.0 H (11.5-14.5) % Immature Gran # 0.15 H (0.00-0.04) X 10*3/uL Neutrophils # 12.44 H (1.80-7.70) X 10*3/uL Eosinophils # 0 L (0.04-0.35) X 10*3/uL NRBC/100 WBC Diff 0.02 H (0.00-0.01) X 10*3/uL BUN 42 H (9-20) mg/dL Glucose 164 H (74-99) mg/dL POC Glucose (mg/dL) 153 H (70-110) mg/dL 11/21/23 Range/Units 07:07 WBC (4.50-10.00) X 10*3/uL RBC (4.40-5.60) X 10*6/uL Hgb (13.0-17.0) g/dL Hct (39.6-50.0) % MCHC (32.0-37.0) g/dL RDW (11.5-14.5) % Immature Gran # (0.00-0.04) X 10*3/uL Neutrophils # (1.80-7.70) X 10*3/uL Eosinophils # (0.04-0.35) X 10*3/uL NRBC/100 WBC Diff (0.00-0.01) X 10*3/uL BUN (9-20) mg/dL Glucose (74-99) mg/dL POC Glucose (mg/dL) 158 H (70-110) mg/dL Assessment and Plan Assessment: Acute hypoxic respiratory failure requiring intubation mechanical ventilation secondary to aspiration during EGD on 11/12/2023. Patient was extubated on 11/14/2023. Status post J-tube placement 11/16/2023, postoperative day #5. Acute aspiration pneumonia. Acute aspiration during upper endoscopy most likely secondary to gastric outlet obstruction secondary to non-Hodgkin's lymphoma. Chronic abdominal pain, secondary to lymphoma. Unexplained weight loss most likely secondary non-Hodgkin's lymphoma involving the stomach. Paroxysmal atrial fibrillation. Plan: Plan dated November 21, 2023. The patient is seen today in room 517. The patient is on 3 L of oxygen. He continues on Zosyn. Continues on tube feeds. He had a CT scan of the abdomen and pelvis. His respiratory status is improved. We will continue to follow. Prognosis is guarded. Labs, x-rays, medications are reviewed. The patient is apparently scheduled for an outpatient PET scan. Time with Patient: Less than 30
[2023-11-21 12:10] LABS: Glucose,Whole Blood 150 mg/dL (70-110)
--- NOTE | 2023-11-21 14:52 | P.PN ---
Subjective Progress Note Date: 11/21/23 Patient has been experiencing diarrhea, nausea and abd pain. CT AP showing possible SBO at J tube site. Tube feedings held. Continues on IV abx. WBC 14.4, hgb 8.8, plt 229 Objective - Vital Signs Vital signs: Vital Signs Temp 97.8 F 11/21/23 07:02 Pulse 86 11/21/23 08:34 Resp 16 11/21/23 07:02 BP 155/72 11/21/23 07:02 Pulse Ox 95 11/21/23 08:38 FiO2 40 11/16/23 13:09 Intake & Output 11/20/23 11/21/23 11/21/23 18:59 06:59 18:59 Intake Total 200 Balance 200 Weight 94.8 kg 93.2 kg Intake: IV 200 Piperacillin-Tazobactam 3 200 .375 gm In Sodium Chloride 0.9% 100 ml @ 25 mls/hr IVPB Q8HR [facility] Rx# :[id number] Other: Voiding Method Bedside Commode Bedside Commode Urinal Urinal # Voids 3 1 # Bowel Movements 2 - Constitutional General appearance: Present: average body habitus, no acute distress - EENT Eyes: Present: anicteric sclerae, EOMI ENT: Present: hearing grossly normal - Respiratory Details: breathing is even and unlabored - Cardiovascular Details: well perfused - Integumentary Integumentary: Absent: cyanotic, jaundiced - Musculoskeletal Musculoskeletal: Present: generalized weakness - Psychiatric Psychiatric: Present: A&O x's 3 - Labs CBC & Chem 7: 11/21/23 02:56 11/21/23 02:56 Labs: Abnormal Lab Results - Last 24 Hours (Table) 11/20/23 11/20/23 11/20/23 Range/Units 03:31 12:41 17:32 WBC (4.50-10.00) X 10*3/uL RBC (4.40-5.60) X 10*6/uL Hgb (13.0-17.0) g/dL Hct (39.6-50.0) % MCHC (32.0-37.0) g/dL RDW (11.5-14.5) % Immature Gran # (0.00-0.04) X 10*3/uL Neutrophils # (1.80-7.70) X 10*3/uL Eosinophils # (0.04-0.35) X 10*3/uL NRBC/100 WBC Diff (0.00-0.01) X 10*3/uL BUN 42 H (9-20) mg/dL Glucose (74-99) mg/dL POC Glucose (mg/dL) 171 H 176 H (70-110) mg/dL 11/20/23 11/21/23 11/21/23 Range/Units 20:28 02:56 02:56 WBC 14.43 H (4.50-10.00) X 10*3/uL RBC 3.18 L (4.40-5.60) X 10*6/uL Hgb 8.8 L (13.0-17.0) g/dL Hct 28.7 L (39.6-50.0) % MCHC 30.7 L (32.0-37.0) g/dL RDW 17.0 H (11.5-14.5) % Immature Gran # 0.15 H (0.00-0.04) X 10*3/uL Neutrophils # 12.44 H (1.80-7.70) X 10*3/uL Eosinophils # 0 L (0.04-0.35) X 10*3/uL NRBC/100 WBC Diff 0.02 H (0.00-0.01) X 10*3/uL BUN 42 H (9-20) mg/dL Glucose 164 H (74-99) mg/dL POC Glucose (mg/dL) 153 H (70-110) mg/dL 11/21/23 Range/Units 07:07 WBC (4.50-10.00) X 10*3/uL RBC (4.40-5.60) X 10*6/uL Hgb (13.0-17.0) g/dL Hct (39.6-50.0) % MCHC (32.0-37.0) g/dL RDW (11.5-14.5) % Immature Gran # (0.00-0.04) X 10*3/uL Neutrophils # (1.80-7.70) X 10*3/uL Eosinophils # (0.04-0.35) X 10*3/uL NRBC/100 WBC Diff (0.00-0.01) X 10*3/uL BUN (9-20) mg/dL Glucose (74-99) mg/dL POC Glucose (mg/dL) 158 H (70-110) mg/dL Assessment and Plan (1) Large B-cell lymphoma Current Visit: Yes Status: Acute Priority: High Code(s): C85.10 - UNSPECIFIED B-CELL LYMPHOMA, UNSPECIFIED SITE SNOMED Code(s): 458103564 (2) Aspiration into airway Current Visit: Yes Status: Acute Priority: High Code(s): T17.908A - UNSP FB IN RESP TRACT, PART UNSP CAUSING OTH INJURY, INIT SNOMED Code(s): 846637537 (3) Gastric outlet obstruction Current Visit: Yes Status: Acute Priority: High Code(s): K31.1 - ADULT HYPERTROPHIC PYLORIC STENOSIS SNOMED Code(s): 286750891 (4) Gastric ulcer Current Visit: Yes Status: Acute Priority: High Code(s): K25.9 - GASTRIC ULCER, UNSP ACUTE OR CHRONIC, W/O HEMOR OR PERF SNOMED Code(s): 043128252 (5) Iron deficiency anemia Current Visit: Yes Status: Acute Priority: High Code(s): D50.9 - IRON DEFICIENCY ANEMIA, UNSPECIFIED SNOMED Code(s): 42202426 Plan: Large B cell lymphoma: Patient was scheduled for outpatient upper EGD with Dr. Cheng, for complaints of chronic epigastric pain over the last 8 months with a 20 lb weight loss over the last 4 months. -Underwent EGD on On 11/12/2023 revealing revealing a large superficial gastric antral ulceration involving most of the antrum. Multiple biopsies obtained. The antral ulceration was extending to the pylorus causing pyloric stenosis and gastric outlet obstruction. -Pathology was positive for high-grade non-Hodgkin's diffuse large B-cell lymphoma, non-germinal center activated B-cell type -FISH testing for MYC, BCL2 and BCL6 pending -S/p J-tube and medi-port placement. -Was tolerating tube feedings but began having nausea and increased abd pain. CT AP was obtained showing possible SBO/transition point at J tube entry site. Gastric fold thickening improved, stable peripancreatic lymph node, and cholelithiasis. Awaiting further review/recs from surgery team -Plan was for PET CT in the outpt setting, however due to noted complications and likeliness of prolonged hospitalization, will obtain CT neck and chest to complete staging -If surgical team believes this is a SBO r/t lymphoma, will likely need to start inpt chemo. Will f/u on surgery recommendations/plan Iron deficiency anemia: -S/p 1 unit PRBCs -Anemia labs revealed iron saturation 1.6%, ferritin 34.6, vitamin B12 569, folate 4.4 -Parenteral iron completed -Hgb improving, 8.8 today -Continue to monitor CBC. Transfuse for hgb <7 or if symptomatic
--- NOTE | 2023-11-21 16:27 | CT ---
EXAMINATION TYPE: CT neck chest w con DATE OF EXAM: 11/21/2023 COMPARISON: Chest 06/01/20192011 HISTORY: 73-year-old male lymphoma staging TECHNIQUE: Contiguous axial scanning of the soft tissues of the neck and chest performed with IV Cont rast, patient injected with 80ml mL of Isovue 300. Coronal/sagittal reconstructions performed. CT DLP: 1188 mGycm Automated exposure control for dose reduction was used. FINDINGS: Neck: Visualized intracranial structures, paranasal sinuses, orbits and globes, and mastoid air cells appea r clear. Nasopharynx and oropharynx appear clear. Epiglottis and prevertebral soft tissues are satisfactory. Glottic and subglottic structures as well as the tracheal column appear clear. No cervical lymphadenopathy is identified. Thyroid gland is satisfactory. Submandibular glands and parotid glands appear atrophic. Atherosclerotic calcification of the bilateral carotid bulbs. CHEST: The heart is upper limits of normal in size without pericardial effusion. LAD coronary artery calcif ications are present. Right anterior chest wall injection port with catheter tip low in the right atrium, possibly just tra versing the tricuspid valve. Clinically correlate. Enlarged caliber main right and left pulmonary arteries up to 2.8 cm may reflect underlying pulmonary arterial hypertension. Aberrant direct takeoff of the left vertebral artery directly from the aortic arch. No thoracic lymphadenopathy by CT size criteria. Trace bilateral pleural effusions persist but show some improvement from yesterday. However, patchy bibasilar opacities persist. There are tree in bud opacities throughout the remainder of the lungs and some mild patchy groundglass right apex. Small hiatal hernia. Bones: DISH lower thoracic spine. IMPRESSION: NECK: 1. NO SUSPICIOUS NECK MASS OR CERVICAL ADENOPATHY. CHEST: 2. Trace bilateral pleural effusions show slight improvement from yesterday. However, prominent patch y bibasilar infiltrates persist. Tree-in-bud opacity throughout the remainder of the lungs. Correlate for infectious or aspiration pneumonitis. 3. Borderline heart size with LAD coronary artery calcifications. Possible underlying pulmonary arter ial hypertension. 4. No suspicious lymphadenopathy identified within the chest. 4. Right anterior chest wall injection port with low positioning of the catheter tip again noted, pos sibly traversing the tricuspid valve. [facility], , 11/21/2023 4:25 PM
[2023-11-21 17:06] LABS: Glucose,Whole Blood 181 mg/dL (70-110)
--- NOTE | 2023-11-21 18:28 | P.PN ---
Progress Note - Text Progress Note Date: 11/21/23 Chief Complaint: Aspirated This is a 73-year-old patient, follows with Dr. Patricia Deal. Patient was seen this morning in the ICU. Patient's and daughter at the bedside. History obtained predominantly by the . Patient been having trouble with his stomach symptoms for close to 8 months. Patient underwent EGD by Dr. Sahara Cheng yesterday. Patient was found to have ulcerated around the antrum and obstruction to the pylorus. A lot of retained food was found. Patient aspirated. Had to be intubated and brought to the ICU. On a Levophed drip. FiO2 50 and a PEEP of 6. Patient had been losing weight lost about 25 pounds. Previously has a history of mitral valve prolapse. November 13: ICU. Patient remains on Precedex drip and propofol drip. Did not do well attempted extubation yesterday. Patient been off Levophed. NG tube to suction. Spoke to patient's and son at the bedside. Biopsy results awaited. Hemoglobin dropped to 6.9 this morning. Get a unit of blood. November 14: ICU. Up in a chair. Extubated yesterday. NG tube to suction. at the bedside. 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 Oncology was consulted. They have ordered a port. Results discussed with Dr. Sahara Cheng. General surgery was consulted for J-tube placement. Discussed with at the bedside. Patient getting IV fluids, IV Zosyn,. Patient has been on IV amiodarone for A-fib-back in sinus rhythm. Multiple PACs. Did receive unit of blood yesterday. Also IV ferric gluconate. November 15: ICU. Patient earlier today underwent jejunostomy tube placement and a port placement. Patient awake. Answering questions. NG tube to suction present. Updated patient's . Patient remains on IV amiodarone and IV Zosyn. November 16: ICU. Up in the chair. NG tube present but not to suction. Trickle feeding through the jejunostomy tube should be started today. Dietitian has been on board. IV Zosyn to continue. Patient's and his sister at the bedside. Discussed. Also spoke with Dr. Serna. Given patient has no other predisposing cardiac factors for the A-fib except acute illness. His LV function is normal. Left atrium is normal. He has already been loaded with IV amiodarone. Will switch him to oral Lopressor 12.5 twice daily. Hence will DC amiodarone. Patient yesterday had wheezing was put on bronchodilators steroids per pulmonary. November 17: Propped up in bed. NG tube was discontinued. Sinus rhythm. Remains NPO. Getting G-tube feeding at 40 cc an hour. Dietitian following. Get arrangements done for DC home tomorrow including tube feeding. Increase activity discussed with patient and elder daughter at the bedside. Still requiring oxygen. Incentive spirometry. November 18: Patient up in recliner. Earlier today spoke to social secretary David. Informed patient is rather weak and will be going to the [facility]. Looking at authorization. Denae came to the room and spoke to patient his and his daughter. They are very keen to take the patient home as 3 daughters all nurses and they will take care of him at home. Patient earlier today to abdominal cramping and some loose stools.'s tube feeding was held. Told the nurse to start back at the rate of 40 cc an hour. He was before the getting it at 55 cc an hour. Incentive spirometry was again emphasized. Patient remains on 4 L of oxygen. November 19: I saw the patient this morning. Hence I am in the evening. Morning was sitting with his sons. Has some edema. Lungs had crackles I gave him 40 mg of Lasix. He did make good urine. Tube feeding was held from the previous evening of because of abdominal cramping. Acute abdominal series showed nonspecific bowel gas pattern and SBO to be ruled out. Family and patient was updated. Told him discharge will depend on day by day. Later this afternoon CT scanAnd abdomen pelvis done. Showed small bowel to be 3 point centimeter dilated. Some anasarca. Gastric findings. Gallstones. Later spoke to Dr. Irby from general surgery. They will further review and decide about further plan of action. Will give further dose of IV Lasix because of fluid overload from likely hypoalbuminemia and IV fluids previously received. Patient may take his pills by mouth. Total time spent today about 1 hour with over 40 minutes of discussion. Patient did state his breathing is better after Lasix this morning. November 20: Saw the patient this morning. was present. Patient received 2 more doses of Lasix. Diuresed well. Breathing much better. Lungs are sounding better. Discussed with Dr. Zepeda other surgeon. He is taking 3 cc out of the balloon and the gastrostomy tube. Started trickle feeding at 5 cc an hour. Will see how this does. Later in the day ran into the and the daughter again. Did update them on the same. Dilaudid was discontinued yesterday but morphine was ordered by surgery for patient having pain. Concerns about GI issues with that we will DC the morphine. As family does not want the same. Active Medications Acetaminophen (Acetaminophen Tab 325 Mg Tab) 650 mg PO Q4HR PRN PRN Reason: Fever and/ or Pain Albuterol/Ipratropium (Ipratropium-Albuterol 3 Ml Neb) 3 ml INHALATION RT-QID [facility] Last Admin: 11/21/23 16:34 Dose: 3 ml Dextrose/Water (Dextrose 50% Syringe 50 Ml) 25 ml IVP PER PROTOCOL PRN; Protocol PRN Reason: Hypoglycemia Dextrose/Water (Dextrose 50% Syringe 50 Ml) 50 ml IVP PER PROTOCOL PRN; Protocol PRN Reason: Hypoglycemia Piperacillin Sod/Tazobactam (Sod 3.375 gm/ Sodium Chloride) 100 mls @ 25 mls/hr IVPB Q8HR [facility]; Protocol Last Admin: 11/21/23 15:54 Dose: 25 mls/hr Insulin Aspart (Insulin Aspart (Novolog) 100 Unit/Ml Vial) 0 unit SQ ACHS [facility]; Protocol Last Admin: 11/21/23 17:47 Dose: 2 unit Lidocaine HCl (Lidocaine 1% (10mg/Ml) For Iv Start) 0.1 ml INTRADERMA PER PROTOCOL PRN PRN Reason: IV Start Stop: 12/12/23 05:39 Methylprednisolone Sodium Succinate (Methylprednisolone Sod Succi 40 Mg/Ml 1 Ml Vial) 40 mg IV Q12HR [facility] Last Admin: 11/21/23 10:05 Dose: 40 mg Metoprolol Tartrate (Metoprolol Tartrate 12.5 Mg Tab) 12.5 mg PO BID [facility] Last Admin: 11/21/23 09:18 Dose: 12.5 mg Miscellaneous Information (Magnesium Replacement Protocol 1 Each Misc) 1 each MISCELLANE DAILY PRN; Protocol PRN Reason: Per Protocol Naloxone HCl (Naloxone 0.4 Mg/Ml 1 Ml Vial) 0.2 mg IV Q2M PRN PRN Reason: Opioid Reversal Pantoprazole Sodium (Pantoprazole 40 Mg/10 Ml Vial) 40 mg IVP BID [facility] Last Admin: 11/21/23 10:05 Dose: 40 mg Past medical history to include: GERD Social history: . No smoking. Physical examination: VITAL SIGNS: 97.8, 69, 16, 110 x 71, 91% on 3 L GENERAL: In a recliner. tired. Right chest wall port EYES: Pupils equal. Conjunctiva edouard l. HEENT: External appearance of nose and ears normal, oral cavity grossly normal. NECK: JVD unable to assess; masses not palpable. HEART: First and second heart sounds are normal; edema decreased LUNGS: Respiratory rate increased, basal crackles-improved ABDOMEN: Soft, nontender, liver spleen not palpable, no masses palpable..jejunostomy tube-attached to gravity. PSYCH: Awake answering questions INVESTIGATIONS, reviewed in the clinical context: November 20: White count 14.4 hemoglobin 8.8 platelets 229 potassium 4.1 BUN [address] scan abdomen [November 19] possible small bowel obstruction Stool: C. difficile negative November 16: White count 9.1 hemoglobin 7.9 platelets 259 potassium 4.3 creatinine 0.92 November 15: WBC 13 hemoglobin 7.7 platelets 248 potassium 4.3 creatinine 0.87 2D echo: EF 55 to 60%. November 14: White count 10.7 hemoglobin 7.5 platelets 239 potassium 4.2 creatinine 0.96 Kidneys bladder: Unremarkable November 13: White count 12 hemoglobin 6.9 platelets 276 potassium 4.4 creatinine 1.21 magnesium 1.8 iron 6 TIBC 365% saturation 1.64 transferrin 261 ferritin 34.6 B12 569 folate 4.4 November 12: White count 14 hemoglobin 7.6 platelets 333 sodium 136 BUN 26 cre atinine 1.57 November 11: Creatinine 0.86 EGD: Large amount of retained solid liquid food noted in the stomach. Large superficial gastric antral ulceration involving most of the antrum extending int o the pylorus causing pyloric stenosis. Biopsies were obtained. Chest x-ray film personally reviewed by me-scattered infiltrates Assessment plan: -Aspiration pneumonitis bilateral from retained gastric contents mostly food and liquids, causing acute hypoxic respiratory failure: IV Zosyn -Acute pulmonary edema and fluid overload from hypoalbuminemic state and fluids from IV.: Slow to respond Patient received a total of 3 doses of IV Lasix 40 mg.. -Possible small bowel obstruction. Unclear if related to jejunostomy tube. Bowel involvement with lymphoma also possible.: Slow to respond Jejunostomy tube balloon deflated by 3 mm. Apparently about 10 mg put initially. Trickle feeding has been started at 5 cc an hour. Follow -Acute kidney injury. Possible ATN from hypotensive shock: Corrected Strict I's and O's. Follow renal function. Renal ultrasound unremarkable Seen by nephrology. IV fluids. I's and O's. -Nutrition Jejunostomy tube placed November [address] Ewing Tricmaribethe tube feeding started today. -Acute critical care transitional atrial fibrillation-sinus rhythm IV amiodarone. Discussed with Dr. Serna from cardiology. Stop amiodarone. Lopressor 12.5 twice daily -Acute hypoxic respiratory failure from aspiration pneumonia, status post ventilator assisted: Now 3 L nasal cannula Incentive spirometry -Normocytic anemia likely o secondary underlying lymphoma Iron deficiency anemia Received a unit of blood. IV iron. -Acute blood loss anemia, could be oozing from biopsy site in the stomach Received blood -GERD PPI -Acute diarrhea secondary to tube feeding. C. difficile ruled out. Controlled -Large superficial gastric antral ulceration involving the gastric antrum extending into the pylorus with gastric outlet obstruction. 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 Port placed. For outpatient PET scan. -Full code Received IV Lasix today. Good urine output. Jejunostomy tube centimeter deflated today. Trickle feeding started. Spoke with the surgeon, the patient, the and the daughter. DC IV morphine. Avoid narcotics. Past Medical History Past Medical History: GERD/Reflux History of Any Multi-Drug Resistant Organisms: None Reported Past Surgical History: Heart Catheterization Additional Past Surgical History / Comment(s): colonsocopy,spinal injection, Past Anesthesia/Blood Transfusion Reactions: No Reported Reaction Past Psychological History: No Psychological Hx Reported Smoking Status: Never smoker Past Alcohol Use History: None Reported Past Drug Use History: None Reported
[2023-11-21] MEDS: ACETAMINOPHEN TAB 325 MG TAB PO PRN (20:55)
[2023-11-22 00:21] LABS: Glucose,Whole Blood 158 mg/dL (70-110)
--- NOTE | 2023-11-22 01:50 | P.PN ---
Progress Note - Text Progress Note Date: 11/22/23 HISTORY OF PRESENT ILLNESS: Patient abdominal pain has improved. Tolerating Tube Feeds at 5 with no residuals. PHYSICAL EXAM: VITAL SIGNS: Reviewed. GENERAL: Well-developed in no acute distress. CHEST: Mediport site right chest, clean dry and intact ABDOMEN: Soft. Mildly distended. Mild tenderness around J-tube site on the left side of the abdomen NEUROLOGIC: Alert and oriented. Cranial nerves II through XII grossly intact. ASSESSMENT: 1. Possible small bowel obstruction noted on CT scan with transition point reported at the J-tube site. 2. Non-Hodgkin lymphoma noted on stomach biopsy from EGD 3. Severe protein calorie malnutrition 4. Aspiration pneumonia PLAN: -Tube Feeds Advanced to 10 -Continue antibiotics Dick Ewing [facility] [phone]
[2023-11-22 07:22] LABS: Glucose,Whole Blood 161 mg/dL (70-110)
[2023-11-22] MEDS: INSULIN ASPART (NovoLOG) 100 UNIT/ML VIAL SQ SCH (08:48)
[2023-11-22] MEDS: ACETAMINOPHEN ORAL SUSP 160 MG/5 ML CUP PO PRN (09:57)
[2023-11-22 11:53] LABS: Glucose,Whole Blood 138 mg/dL (70-110)
--- NOTE | 2023-11-22 14:30 | P.PN ---
Subjective Progress Note Date: 11/22/23 Principal diagnosis: Abdominal pain. This is a 73-year-old white male with history of chronic abdominal pain for the last 8 months has been treated with Protonix 40 mg daily for the last 3 months with no improvement. Patient had a 22 pound weight loss in the last [address] of the abdomen and pelvis 3 weeks ago showed thickening of the antral wall with pathological adenopathy posterior to the stomach suspicious of neoplasm. Today the patient underwent elective upper endoscopy to evaluate further, patient received IV sedation by anesthesia endoscope was inserted into the mouth, esophagus was intubated without any difficulty there was evidence of large amount of liquid and solid food noted in the stomach suggestive of gastric outlet obstruction. Scope could not be advanced through the pylorus, however in the prepyloric area there was a large superficial ulceration identified with multiple biopsies were done from this area. The body cardia and fundus could not adequately visualize because of large amount of retained food in the stomach. Scope was withdrawn back to the stomach and upon careful examination the mucosa of the antrum body and cardia as well as the fundus appeared normal. Procedure was being performed and biopsies were done patient threw up and subsequently became hypoxic there was clearly evidence of witnessed aspiration anesthesia intubated the patient, procedure was terminated, and the patient was transferred to the ICU, this consult was initiated. Patient is now on assist- control rate of 20 tidal volume 500 FiO2 70% PEEP of 10 ABG is pending, earlier ABG showed profound hypoxia patient is on propofol at 50 mcg/kg/min, next ABG is pending. Chest x-ray showed chronic changes without evidence of acute pulmonary disease. Patient was seen and examined today on 11/13/2023, remains in the ICU, intubated mechanically ventilated, on assist-control rate of 20 tidal volume 500 FiO2 50% and PEEP of 10 ABG showed a pO2 of 143 pCO2 47 pH of 7.28 hence PEEP was cut down to 6, and increased rate to 22. Patient is still requiring IV fluid at 100 cc/h/LR. Requiring norepinephrine at 0.08 mcg/kg/min he is also on propofol at 50 mg/kg/min antibiotics arce patient is receiving Zosyn. Chest x-ray is showing worsening infiltrates specially in the left lung. This could be related to aspiration pneumonia. Patient had witnessed aspiration during endoscopy/upper endoscopy.WBC count is 14 hemoglobin 7.6 basic metabolic profile is normal BUN is 26 creatinine 1.57 obviously the patient sustained some acute kidney injury baseline creatinine 0.86 patient had received fluids over the last 24 hours, remains on fluids at 100 cc/h Patient with seen and examined today on 11/14/2023, patient remains in the ICU, intubated and mechanically ventilated. Failed weaning trial yesterday and he became quite agitated and desaturated once he went off propofol. Had to be placed back on assist-control mode of mechanical ventilation and sedation. Today the patient is on assist-control rate of 22 tidal volume 500 FiO2 50% PEEP of 6. ABG showed a pO2 of 123 pCO2 51 pH of 7.32, and I cut down his FiO2 down to 45%, patient is receiving a unit of packed RBCs for hemoglobin of 6.9 today. Patient had an episode of A-fib RVR at 3 AM in the morning, seen by cardiology, and recommended patient goes on amiodarone. Still requiring norepinephrine at 0.05 mg/kg/min, he is on LR at 100 cc/h propofol at 50 mg/kg/min. Remains empirically on Zosyn for aspiration pneumonia. My plan today is transitioning the patient to Precedex, hopefully discontinue propofol, and at least give the patient a decent weaning trial or at least check weaning parameters before we proceed to weaning trial. Chest x-ray continues to show evidence of pneumonia mostly in the left lung and left lower lobe more specifically. Some pulmonary vascular congestion is noted with interstitial edema, small pleural effusion is also noted/left side. WBC count today is 12 hemoglobin 6.9 basic metabolic profile is normal bicarb is 25, BUN is 25 creatinine is improving down to 1.21 from 1.57 yesterday Patient was evaluated today on 11/15/2023, patient remains in the ICU, he was extubated yesterday, and his extubation was relatively uneventful. However the patient continues to have nasogastric tube in place, his pathology report came back showing non-Hodgkin's lymphoma, patient has gastric outlet obstruction, and the recommendation by GI is to consult surgery for a jejunostomy tube which is appropriate. Patient will be seen today by oncology and [facility]. In the meantime patient is comfortable, he is on 5 L nasal cannula he has LR running at 100 cc/h, he is remains on Zosyn for aspiration pneumonia remains on amiodarone which was started by cardiology for atrial fibrillation with RVR, presently in sinus rhythm. Cannot switch him to oral because of the fact that remains n.p.o., patient remains on TPN. WBC count is 10.7 hemoglobin 7.5 electrolytes are normal renal profile is normal, creatinine normalized to 0.96 Patient was evaluated today on 11/16/2023, remains in the ICU, on 5 L nasal cannula remains on amiodarone at 0.5 mg/min remains on LR at 100 cc/h, however his chest x-ray is showing some component of interstitial edema or could be findings related to his recent episode of aspiration/aspiration pneumonia, nonetheless the patient seems to be a bit symptomatic, he has intermittent cough and wheezing, I am recommending Lasix 40 mg IV push, cut down his IV fluid to 50 cc/h, continue Zosyn, patient will be placed on DuoNeb updrafts and on Solu- Medrol. Patient is scheduled to have jejunostomy-tube placement today. WBC count is 13 hemoglobin 7.7 basic metabolic profile is normal and renal profile is normal Patient was evaluated today on 11/17/2023, patient underwent uneventful placement of a jejunostomy tube yesterday, in the ICU on 5 L, patient is relatively stable, not in any distress, patient continues to have nasogastric tube in place although he did have a J-tube placed yesterday. Patient was seen by oncology for his non-Hodgkin's lymphoma involving the gastric outlet. Today's x-ray showed evidence of pneumonia/bilateral interstitial infiltrate/edema patient was given a dose of Lasix, I reminded the patient had an aspiration episode which was significant. And he required intubation mechanical ventilation for a few days.WBC count today is 9.1 hemoglobin 7.9 electrolytes are normal renal profile is normal hence I plan to transfer the patient out of the ICU to a cardiac floor. And hopefully discharge planning in the next 2 days for The patient was seen today November 18, 2023 in follow-up in the intensive care unit. He is currently sitting up in bed. Awake and alert in no acute distress. He is maintaining O2 saturations in the 90s on 5 L/min per nasal cannula. Glucose 177. Remains on DuoNeb inhalations and Solu-Medrol. Antibiotics in the form of Zosyn. He has a J-tube in place. He was initiated on vital AF 1.2 at 10 mL an hour with a goal of 82 mL/h The patient is seen today November 19, 2023 in follow-up in the intensive care unit. He is a regular medical floor overflow patient. He is currently sitting up in a chair. Awake and alert in no acute distress. He is maintaining O2 saturations in the 90s on 5 L/min per nasal cannula. No IV fluids. He denies any worsening shortness of breath, cough or congestion. He is having some issues with diarrhea. He remains on Zosyn. He is receiving vital AF at 55 mL/h with a goal of 82 mL/h. Glucose 161. Solu-Medrol, DuoNeb inhalations. The patient is seen today November 20, 2023 in follow-up on the regular medical floor. He is currently up in a chair at the bedside. Awake and alert in no acute distress. Denies any worsening shortness of breath, cough or congestion. He is maintaining O2 saturation in the 90s on 3 L/min per nasal cannula. He continues on Zosyn. Continues on bronchodilators and steroids. White count 12.3. Hemoglobin 9.0. Platelets 258. Glucose 168. He is not tolerating his tube feeds as he has developed diarrhea. C. difficile screen was negative. Abdominal series revealed cardiomegaly with left basilar acute infiltrate and/or atelectasis. Overall nonspecific bowel gas pattern. A small bowel obstruction needs to be considered. Progress note dated November 21, 2023. The patient is seen in room 517. The patient is currently on 3 L of oxygen. He continues on Zosyn. His biggest complaint has been abdominal discomfort and diarrhea. He did have a CT scan of the abdomen and pelvis. Current laboratory data includes a white count of 14.4, hemoglobin 8.8, hematocrit 28.7, and platelet count 229,000. Sodium 139, potassium 4.1, chlorides 103, CO2 30, BUN 42, creatinine 0.94. Glucose is 158. Calcium is 8.5. Progress note dated November 30, 2023. 73-year-old male seen in room 517. He currently is on 2 L of oxygen. Room air saturation was 89%. Chest CT shows bilateral patchy infiltrates. He continues on Zosyn. He is still not taking anything by mouth. No new laboratory data today other than a glucose of 138. Gram stain was negative. Objective - Vital Signs Vital signs: Vital Signs Temp 98.9 F 11/22/23 13:00 Pulse 64 11/22/23 13:00 Resp 17 11/22/23 13:00 BP 121/71 11/22/23 13:00 Pulse Ox 96 11/22/23 13:00 FiO2 40 11/16/23 13:09 Intake & Output 11/21/23 11/22/23 11/22/23 18:59 06:59 18:59 Intake Total 245 Output Total 200 1 Balance 245 -200 -1 Weight 93.2 kg 90.265 kg 90.265 kg Intake: IV 200 Piperacillin-Tazobactam 3 200 .375 gm In Sodium Chloride 0.9% 100 ml @ 25 mls/hr IVPB Q8HR [facility] Rx# :[id number] Tube Feeding 30 Other 15 Output: Urine 200 Stool 1 Other: Voiding Method Bedside Commode Bedside Commode Urinal Urinal - Exam No acute distress, oriented 3. Currently on 2 L nasal cannula. No respiratory distress. Resting room air saturation was 89%. HEENT examination is grossly unremarkable. Mucous membranes are moist. No oral lesions. Neck supple. Full range of motion. No adenopathy thyromegaly or neck vein distention. Cardiovascular examination reveals regular rhythm rate. S1-S2 normal. No S3 or S4. No discernible murmur noted. Lungs reveal mild scattered rhonchi. No wheezes or crackles. Breath sounds equal. Saturations are adequate. Abdomen soft bowel sounds are heard. No masses or tenderness. J-tube is noted. No drainage. Extremities are intact. No cyanosis clubbing or edema. Skin is without rash or lesion. Neurologic examination is brief but nonfocal. - Labs CBC & Chem 7: 11/21/23 02:56 11/21/23 02:56 Labs: Abnormal Lab Results - Last 24 Hours (Table) 11/21/23 11/22/23 11/22/23 Range/Units 17:04 00:19 07:16 POC Glucose (mg/dL) 181 H 158 H 161 H (70-110) mg/dL 11/22/23 Range/Units 11:51 POC Glucose (mg/dL) 138 H (70-110) mg/dL Assessment and Plan Assessment: Acute hypoxic respiratory failure requiring intubation mechanical ventilation secondary to aspiration during EGD on 11/12/2023. Patient was extubated on 11/14/2023. Status post J-tube placement 11/16/2023, postoperative day #6. Acute aspiration pneumonia. Acute aspiration during upper endoscopy most likely secondary to gastric outlet obstruction secondary to non-Hodgkin's lymphoma. Chronic abdominal pain, secondary to lymphoma. Unexplained weight loss most likely secondary non-Hodgkin's lymphoma involving the stomach. Paroxysmal atrial fibrillation. Plan: Plan dated November 21, 2023. The patient is seen today in room 517. The patient is on 3 L of oxygen. He continues on Zosyn. Continues on tube feeds. He had a CT scan of the abdomen and pelvis. His respiratory status is improved. We will continue to follow. Prognosis is guarded. Labs, x-rays, medications are reviewed. The patient is apparently scheduled for an outpatient PET scan. Plan dated November 30, 2023. The patient appears very stable. His is in the room with him. Labs, x- rays, and medications are reviewed. The patient continues on Zosyn. Resting room air saturation was 89%. Chest CT, revealed bilateral patchy and basilar infiltrates. We will continue to follow make recommendations along the way. Prognosis is guarded. The patient was diagnosed with a gastric outlet obstruction, secondary to non-Hodgkin's lymphoma. Time with Patient: Less than 30
[2023-11-22 17:07] LABS: Glucose,Whole Blood 158 mg/dL (70-110)
--- NOTE | 2023-11-22 17:12 | P.PN ---
Progress Note - Text Progress Note Date: 11/22/23 Chief Complaint: Aspirated This is a 73-year-old patient, follows with Dr. Patricia Deal. Patient was seen this morning in the ICU. Patient's and daughter at the bedside. History obtained predominantly by the . Patient been having trouble with his stomach symptoms for close to 8 months. Patient underwent EGD by Dr. Sahara Cheng yesterday. Patient was found to have ulcerated around the antrum and obstruction to the pylorus. A lot of retained food was found. Patient aspirated. Had to be intubated and brought to the ICU. On a Levophed drip. FiO2 50 and a PEEP of 6. Patient had been losing weight lost about 25 pounds. Previously has a history of mitral valve prolapse. November 13: ICU. Patient remains on Precedex drip and propofol drip. Did not do well attempted extubation yesterday. Patient been off Levophed. NG tube to suction. Spoke to patient's and son at the bedside. Biopsy results awaited. Hemoglobin dropped to 6.9 this morning. Get a unit of blood. November 14: ICU. Up in a chair. Extubated yesterday. NG tube to suction. at the bedside. 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 Oncology was consulted. They have ordered a port. Results discussed with Dr. Sahara Cheng. General surgery was consulted for J-tube placement. Discussed with at the bedside. Patient getting IV fluids, IV Zosyn,. Patient has been on IV amiodarone for A-fib-back in sinus rhythm. Multiple PACs. Did receive unit of blood yesterday. Also IV ferric gluconate. November 15: ICU. Patient earlier today underwent jejunostomy tube placement and a port placement. Patient awake. Answering questions. NG tube to suction present. Updated patient's . Patient remains on IV amiodarone and IV Zosyn. November 16: ICU. Up in the chair. NG tube present but not to suction. Trickle feeding through the jejunostomy tube should be started today. Dietitian has been on board. IV Zosyn to continue. Patient's and his sister at the bedside. Discussed. Also spoke with Dr. Serna. Given patient has no other predisposing cardiac factors for the A-fib except acute illness. His LV function is normal. Left atrium is normal. He has already been loaded with IV amiodarone. Will switch him to oral Lopressor 12.5 twice daily. Hence will DC amiodarone. Patient yesterday had wheezing was put on bronchodilators steroids per pulmonary. November 17: Propped up in bed. NG tube was discontinued. Sinus rhythm. Remains NPO. Getting G-tube feeding at 40 cc an hour. Dietitian following. Get arrangements done for DC home tomorrow including tube feeding. Increase activity discussed with patient and elder daughter at the bedside. Still requiring oxygen. Incentive spirometry. November 18: Patient up in recliner. Earlier today spoke to social worker psychiatric David. Informed patient is rather weak and will be going to the [facility]. Looking at authorization. Denae came to the room and spoke to patient his and his daughter. They are very keen to take the patient home as 3 daughters all nurses and they will take care of him at home. Patient earlier today to abdominal cramping and some loose stools.'s tube feeding was held. Told the nurse to start back at the rate of 40 cc an hour. He was before the getting it at 55 cc an hour. Incentive spirometry was again emphasized. Patient remains on 4 L of oxygen. November 19: I saw the patient this morning. Hence I am in the evening. Morning was sitting with his sons. Has some edema. Lungs had crackles I gave him 40 mg of Lasix. He did make good urine. Tube feeding was held from the previous evening of because of abdominal cramping. Acute abdominal series showed nonspecific bowel gas pattern and SBO to be ruled out. Family and patient was updated. Told him discharge will depend on day by day. Later this afternoon CT scanAnd abdomen pelvis done. Showed small bowel to be 3 point centimeter dilated. Some anasarca. Gastric findings. Gallstones. Later spoke to Dr. Irby from general surgery. They will further review and decide about further plan of action. Will give further dose of IV Lasix because of fluid overload from likely hypoalbuminemia and IV fluids previously received. Patient may take his pills by mouth. Total time spent today about 1 hour with over 40 minutes of discussion. Patient did state his breathing is better after Lasix this morning. November 20: Saw the patient this morning. was present. Patient received 2 more doses of Lasix. Diuresed well. Breathing much better. Lungs are sounding better. Discussed with Dr. Zepeda other surgeon. He is taking 3 cc out of the balloon and the gastrostomy tube. Started trickle feeding at 5 cc an hour. Will see how this does. Later in the day ran into the and the daughter again. Did update them on the same. Dilaudid was discontinued yesterday but morphine was ordered by surgery for patient having pain. Concerns about GI issues with that we will DC the morphine. As family does not want the same. November 21: Patient reclining bed. Tired. Several family members at the bedside. Including his and eldest daughter. Patient started on trickle feed yesterday at 5 cc an hour. This morning he has been on 10 cc an hour. Still having some loose stools. C. difficile was ordered. Patient on 2 L of nasal cannula. Has diuresed well. Will give an additional dose of Lasix today. If C. difficile is negative and the diarrhea is from the tube feedings we may have to use a fecal management system to keep him comfortable. Otherwise patient remains NPO. Dietitian is following the patient. Care was discussed length with patient the and daughter at the bedside. Questions answered. Liquid Tylenol has been added for abdominal pain. Avoid narcotics. Elevated white count likely from Solu-Medrol Active Medications Acetaminophen (Acetaminophen Tab 325 Mg Tab) 650 mg PO Q4HR PRN PRN Reason: Fever and/ or Pain Last Admin: 11/22/23 08:46 Dose: 650 mg Acetaminophen (Acetaminophen Oral Susp 160 Mg/5 Ml Cup) 480 mg PO Q4HR PRN PRN Reason: Fever Last Admin: 11/22/23 09:57 Dose: 480 mg Albuterol/Ipratropium (Ipratropium-Albuterol 3 Ml Neb) 3 ml INHALATION RT-QID NIRMAL Last Admin: 11/22/23 16:09 Dose: 3 ml Dextrose/Water (Dextrose 50% Syringe 50 Ml) 25 ml IVP PER PROTOCOL PRN; Protocol PRN Reason: Hypoglycemia Dextrose/Water (Dextrose 50% Syringe 50 Ml) 50 ml IVP PER PROTOCOL PRN; Protocol PRN Reason: Hypoglycemia Piperacillin Sod/Tazobactam (Sod 3.375 gm/ Sodium Chloride) 100 mls @ 25 mls/hr IVPB Q8HR NIRMAL; Protocol Last Admin: 11/22/23 16:42 Dose: 25 mls/hr Insulin Aspart (Insulin Aspart (Novolog) 100 Unit/Ml Vial) 0 unit SQ 0000,0600,1200,1800 [facility]; Protocol Last Admin: 11/22/23 12:32 Dose: Not Given Lidocaine HCl (Lidocaine 1% (10mg/Ml) For Iv Start) 0.1 ml INTRADERMA PER PROTOCOL PRN PRN Reason: IV Start Stop: 12/12/23 05:39 Methylprednisolone Sodium Succinate (Methylprednisolone Sod Succi 40 Mg/Ml 1 Ml Vial) 40 mg IV Q12HR [facility] Last Admin: 11/22/23 08:49 Dose: 40 mg Metoprolol Tartrate (Metoprolol Tartrate 12.5 Mg Tab) 12.5 mg PO BID [facility] Last Admin: 11/22/23 08:48 Dose: 12.5 mg Miscellaneous Information (Magnesium Replacement Protocol 1 Each Misc) 1 each MISCELLANE DAILY PRN; Protocol PRN Reason: Per Protocol Naloxone HCl (Naloxone 0.4 Mg/Ml 1 Ml Vial) 0.2 mg IV Q2M PRN PRN Reason: Opioid Reversal Pantoprazole Sodium (Pantoprazole 40 Mg/10 Ml Vial) 40 mg IVP BID [facility] Last Admin: 11/22/23 08:51 Dose: 40 mg Past medical history to include: GERD Social history: . No smoking. Physical examination: VITAL SIGNS: 98.9, 64, 17, 121 x 71, 96% on 2 L GENERAL: Reclining in bed, bit tired right chest wall port EYES: Pupils equal. Conjunctiva edouard l. HEENT: External appearance of nose and ears normal, oral cavity grossly normal. NECK: JVD unable to assess; masses not palpable. HEART: First and second heart sounds are normal; edema decreased LUNGS: Respiratory rate increased, basal crackles-some present ABDOMEN: Soft, nontender, liver spleen not palpable, no masses palpable..jejunostomy tube-attached to tube feeding PSYCH: Awake answering questions INVESTIGATIONS, reviewed in the clinical context: November 20: White count 14.4 hemoglobin 8.8 platelets 229 potassium 4.1 BUN [address] scan abdomen [November 19] possible small bowel obstruction Stool: C. difficile negative November 16: White count 9.1 hemoglobin 7.9 platelets 259 potassium 4.3 creatinine 0.92 November 15: WBC 13 hemoglobin 7.7 platelets 248 potassium 4.3 creatinine 0.87 2D echo: EF 55 to 60%. November 14: White count 10.7 hemoglobin 7.5 platelets 239 potassium 4.2 creatinine 0.96 Kidneys bladder: Unremarkable November 13: White count 12 hemoglobin 6.9 platelets 276 potassium 4.4 creatinine 1.21 magnesium 1.8 iron 6 TIBC 365% saturation 1.64 transferrin 261 ferritin 34.6 B12 569 folate 4.4 November 12: White count 14 hemoglobin 7.6 platelets 333 sodium 136 BUN 26 creatinine 1.57 November 11: Creatinine 0.86 EGD: Large amount of retained solid liquid food noted in the stomach. Large superficial gastric antral ulceration involving most of the antrum extending into the pylorus causing pyloric stenosis. Biopsies were obtained. Chest x-ray film personally reviewed by me-scattered infiltrates Assessment plan: -Aspiration pneumonitis bilateral from retained gastric contents mostly food and liquids, causing acute hypoxic respiratory failure: IV Zosyn Pulmonary following -Acute pulmonary edema and fluid overload from hypoalbuminemic state and fluids from IV.: Improving Patient received a total of 3 doses of IV Lasix 40 mg.. Will give 1 more dose of IV Lasix 40 mg today -Possible small bowel obstruction. Unclear if related to jejunostomy tube. Bowel involvement with lymphoma also possible.: Jejunostomy tube balloon deflated by 3 mm-November 20. Apparently about 10 cc put initially. Trickle feeding at 10cc an hour. Being followed by surgery -Acute kidney injury. Possible ATN from hypotensive shock: Corrected Renal ultrasound unremarkable Seen by nephrology. -Nutrition Jejunostomy tube placed November [address] Ewing Tube feeding at 10 cc an hour. -Acute critical care transitional atrial fibrillation-sinus rhythm IV amiodarone. Discussed with Dr. Serna from cardiology. Stop amiodarone. Lopressor 12.5 twice daily -Acute hypoxic respiratory failure from aspiration pneumonia, status post ventilator assisted: Now 2 L nasal cannula Incentive spirometry -Normocytic anemia likely to secondary underlying lymphoma Iron deficiency anemia Received a unit of blood. IV iron. -Acute blood loss anemia, could be oozing from biopsy site in the stomach Received blood -GERD PPI -Acute diarrhea secondary to tube feeding. C. difficile ruled out. -Large superficial gastric antral ulceration involving the gastric antrum extending into the pylorus with gastric outlet obstruction. 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 Port placed. For outpatient PET scan. -Full code Tube feeding at 10 cc an hour. Discussed with patient and . Being followed by surgery. Past Medical History Past Medical History: GERD/Reflux History of Any Multi-Drug Resistant Organisms: None Reported Past Surgical History: Heart Catheterization Additional Past Surgical History / Comment(s): colonsocopy,spinal injection, Past Anesthesia/Blood Transfusion Reactions: No Reported Reaction Past Psychological History: No Psychological Hx Reported Smoking Status: Never smoker Past Alcohol Use History: None Reported Past Drug Use History: None Reported
--- NOTE | 2023-11-22 17:46 | P.PN ---
Subjective Progress Note Date: 11/22/23 Patient is reporting abd pain has improved. Tube feedings have been restarted, and is tolerating them well. Denies N/V. Continues on IV abx. WBC 14.4, hgb 8.8, plt 229 Objective - Vital Signs Vital signs: Vital Signs Temp 98.9 F 11/22/23 13:00 Pulse 64 11/22/23 13:00 Resp 17 11/22/23 13:00 BP 121/71 11/22/23 13:00 Pulse Ox 96 11/22/23 13:00 FiO2 40 11/16/23 13:09 Intake & Output 11/21/23 11/22/23 11/22/23 18:59 06:59 18:59 Intake Total 245 Output Total 200 1 Balance 245 -200 -1 Weight 93.2 kg 90.265 kg 90.265 kg Intake: IV 200 Piperacillin-Tazobactam 3 200 .375 gm In Sodium Chloride 0.9% 100 ml @ 25 mls/hr IVPB Q8HR [facility] Rx# :[id number] Tube Feeding 30 Other 15 Output: Urine 200 Stool 1 Other: Voiding Method Bedside Commode Bedside Commode Urinal Urinal - Constitutional General appearance: Present: average body habitus, no acute distress - EENT Eyes: Present: anicteric sclerae, EOMI ENT: Present: hearing grossly normal - Respiratory Details: breathing is even and unlabored - Cardiovascular Details: skin warm and dry - Integumentary Integumentary: Absent: cyanotic - Musculoskeletal Musculoskeletal: Present: generalized weakness - Psychiatric Psychiatric: Present: A&O x's 3 - Labs CBC & Chem 7: 11/21/23 02:56 11/21/23 02:56 Labs: Abnormal Lab Results - Last 24 Hours (Table) 11/21/23 11/22/23 11/22/23 Range/Units 17:04 00:19 07:16 POC Glucose (mg/dL) 181 H 158 H 161 H (70-110) mg/dL 11/22/23 Range/Units 11:51 POC Glucose (mg/dL) 138 H (70-110) mg/dL Assessment and Plan (1) Large B-cell lymphoma Current Visit: Yes Status: Acute Priority: High Code(s): C85.10 - UNSPECIFIED B-CELL LYMPHOMA, UNSPECIFIED SITE SNOMED Code(s): 593792869 (2) Aspiration into airway Current Visit: Yes Status: Acute Priority: High Code(s): T17.908A - UNSP FB IN RESP TRACT, PART UNSP CAUSING OTH INJURY, INIT SNOMED Code(s): 680749099 (3) Gastric outlet obstruction Current Visit: Yes Status: Acute Priority: High Code(s): K31.1 - ADULT HYPERTROPHIC PYLORIC STENOSIS SNOMED Code(s): 856858137 (4) Gastric ulcer Current Visit: Yes Status: Acute Priority: High Code(s): K25.9 - GASTRIC ULCER, UNSP ACUTE OR CHRONIC, W/O HEMOR OR PERF SNOMED Code(s): 851712070 (5) Iron deficiency anemia Current Visit: Yes Status: Acute Priority: High Code(s): D50.9 - IRON DEFICIENCY ANEMIA, UNSPECIFIED SNOMED Code(s): 50951202 Plan: Large B cell lymphoma: Patient was scheduled for outpatient upper EGD with Dr. Cheng, for complaints of chronic epigastric pain over the last 8 months with a 20 lb weight loss over the last 4 months. -Underwent EGD on On 11/12/2023 revealing revealing a large superficial gastric antral ulceration involving most of the antrum. Multiple biopsies obtained. The antral ulceration was extending to the pylorus causing pyloric stenosis and gastric outlet obstruction. -Pathology was positive for high-grade non-Hodgkin's diffuse large B-cell lymphoma, non-germinal center activated B-cell type -FISH testing for MYC, BCL2 and BCL6 pending -S/p J-tube and medi-port placement. -Was tolerating tube feedings but began having nausea and increased abd pain. CT AP was obtained showing possible SBO/transition point at J tube entry site. Gastric fold thickening improved, stable peripancreatic lymph node, and cholelithiasis. -Plan was for PET CT in the outpt setting, however due to noted complications and likeliness of prolonged hospitalization, will obtain CT neck and chest to complete staging. Scans showed no evidence of suspicious mass or lymphadenopathy within neck or chest. -Clinic f/u upon discharge with plan to start systemic treatment once insurance authorization is obtained Results and plan of care have been discussed in detail with patient and family Iron deficiency anemia: -S/p 1 unit PRBCs -Anemia labs revealed iron saturation 1.6%, ferritin 34.6, vitamin B12 569, folate 4.4 -Parenteral iron completed -Hgb improving, 8.8 -Continue to monitor CBC. Transfuse for hgb <7 or if symptomatic
[2023-11-22] MEDS: FUROSEMIDE 10 MG/ML 4 ML VIAL IV STA (17:53)
[2023-11-22 20:13] LABS: Glucose,Whole Blood 142 mg/dL (70-110)
[2023-11-23 04:15] LABS: Anisocytosis Slight; Basophils % (A) 0 %; Eosinophils % (A) 0 %; HCT 31.4 % (39.0-53.0); Hypochromasia Marked; Lymphocytes # (A) 1.1 k/uL (1.0-4.8); Lymphocytes % (A) 8 %; MCH 27.4 pg (25.0-35.0); MCV 88.4 fL (80.0-100.0); Monocytes # (A) 0.4 k/uL (0-1.0); Monocytes % (A) 2 %; Neutrophils # (A) 12.9 k/uL (1.3-7.7); Neutrophils % (A) 90 %; Platelet Count 242 k/uL (150-450); RBC 3.55 m/uL (4.30-5.90); RDW 18.7 % (11.5-15.5); WBC 14.5 k/uL (3.8-10.6)
[2023-11-23 04:41] LABS: HGB 9.7 gm/dL (13.0-17.5)
[2023-11-23 05:02] LABS: African American GFR (CKD) >90 (>60 ml/min/1.73 sqM); Anion Gap 6 mmol/L; Blood Urea Nitrogen 39 mg/dL (9-20); Calcium 8.5 mg/dL (8.4-10.2); Carbon Dioxide 26 mmol/L (22-30); Chloride 106 mmol/L (98-107); Glucose 181 mg/dL (74-99); Non-African American GFR(CKD) 80 (>60 ml/min/1.73 sqM); Potassium 3.7 mmol/L (3.5-5.1); Sodium 138 mmol/L (137-145)
--- NOTE | 2023-11-23 06:40 | P.PN ---
Subjective Progress Note Date: 11/23/23 Principal diagnosis: Abdominal pain. This is a 73-year-old white male with history of chronic abdominal pain for the last 8 months has been treated with Protonix 40 mg daily for the last 3 months with no improvement. Patient had a 22 pound weight loss in the last [address] of the abdomen and pelvis 3 weeks ago showed thickening of the antral wall with pathological adenopathy posterior to the stomach suspicious of neoplasm. Today the patient underwent elective upper endoscopy to evaluate further, patient received IV sedation by anesthesia endoscope was inserted into the mouth, esophagus was intubated without any difficulty there was evidence of large amount of liquid and solid food noted in the stomach suggestive of gastric outlet obstruction. Scope could not be advanced through the pylorus, however in the prepyloric area there was a large superficial ulceration identified with multiple biopsies were done from this area. The body cardia and fundus could not adequately visualize because of large amount of retained food in the stomach. Scope was withdrawn back to the stomach and upon careful examination the mucosa of the antrum body and cardia as well as the fundus appeared normal. Procedure was being performed and biopsies were done patient threw up and subsequently became hypoxic there was clearly evidence of witnessed aspiration anesthesia intubated the patient, procedure was terminated, and the patient was transferred to the ICU, this consult was initiated. Patient is now on assist- control rate of 20 tidal volume 500 FiO2 70% PEEP of 10 ABG is pending, earlier ABG showed profound hypoxia patient is on propofol at 50 mcg/kg/min, next ABG is pending. Chest x-ray showed chronic changes without evidence of acute pulmonary disease. Patient was seen and examined today on 11/13/2023, remains in the ICU, intubated mechanically ventilated, on assist-control rate of 20 tidal volume 500 FiO2 50% and PEEP of 10 ABG showed a pO2 of 143 pCO2 47 pH of 7.28 hence PEEP was cut down to 6, and increased rate to 22. Patient is still requiring IV fluid at 100 cc/h/LR. Requiring norepinephrine at 0.08 mcg/kg/min he is also on propofol at 50 mg/kg/min antibiotics arce patient is receiving Zosyn. Chest x-ray is showing worsening infiltrates specially in the left lung. This could be related to aspiration pneumonia. Patient had witnessed aspiration during endoscopy/upper endoscopy.WBC count is 14 hemoglobin 7.6 basic metabolic profile is normal BUN is 26 creatinine 1.57 obviously the patient sustained some acute kidney injury baseline creatinine 0.86 patient had received fluids over the last 24 hours, remains on fluids at 100 cc/h Patient with seen and examined today on 11/14/2023, patient remains in the ICU, intubated and mechanically ventilated. Failed weaning trial yesterday and he became quite agitated and desaturated once he went off propofol. Had to be placed back on assist-control mode of mechanical ventilation and sedation. Today the patient is on assist-control rate of 22 tidal volume 500 FiO2 50% PEEP of 6. ABG showed a pO2 of 123 pCO2 51 pH of 7.32, and I cut down his FiO2 down to 45%, patient is receiving a unit of packed RBCs for hemoglobin of 6.9 today. Patient had an episode of A-fib RVR at 3 AM in the morning, seen by cardiology, and recommended patient goes on amiodarone. Still requiring norepinephrine at 0.05 mg/kg/min, he is on LR at 100 cc/h propofol at 50 mg/kg/min. Remains empirically on Zosyn for aspiration pneumonia. My plan today is transitioning the patient to Precedex, hopefully discontinue propofol, and at least give the patient a decent weaning trial or at least check weaning parameters before we proceed to weaning trial. Chest x-ray continues to show evidence of pneumonia mostly in the left lung and left lower lobe more specifically. Some pulmonary vascular congestion is noted with interstitial edema, small pleural effusion is also noted/left side. WBC count today is 12 hemoglobin 6.9 basic metabolic profile is normal bicarb is 25, BUN is 25 creatinine is improving down to 1.21 from 1.57 yesterday Patient was evaluated today on 11/15/2023, patient remains in the ICU, he was extubated yesterday, and his extubation was relatively uneventful. However the patient continues to have nasogastric tube in place, his pathology report came back showing non-Hodgkin's lymphoma, patient has gastric outlet obstruction, and the recommendation by GI is to consult surgery for a jejunostomy tube which is appropriate. Patient will be seen today by oncology and he [facility]. In the meantime patient is comfortable, he is on 5 L nasal cannula he has LR running at 100 cc/h, he is remains on Zosyn for aspiration pneumonia remains on amiodarone which was started by cardiology for atrial fibrillation with RVR, presently in sinus rhythm. Cannot switch him to oral because of the fact that remains n.p.o., patient remains on TPN. WBC count is 10.7 hemoglobin 7.5 electrolytes are normal renal profile is normal, creatinine normalized to 0.96 Patient was evaluated today on 11/16/2023, remains in the ICU, on 5 L nasal cannula remains on amiodarone at 0.5 mg/min remains on LR at 100 cc/h, however his chest x-ray is showing some component of interstitial edema or could be findings related to his recent episode of aspiration/aspiration pneumonia, nonetheless the patient seems to be a bit symptomatic, he has intermittent cough and wheezing, I am recommending Lasix 40 mg IV push, cut down his IV fluid to 50 cc/h, continue Zosyn, patient will be placed on DuoNeb updrafts and on Solu- Medrol. Patient is scheduled to have jejunostomy-tube placement today. WBC count is 13 hemoglobin 7.7 basic metabolic profile is normal and renal profile is normal Patient was evaluated today on 11/17/2023, patient underwent uneventful placement of a jejunostomy tube yesterday, in the ICU on 5 L, patient is relatively stable, not in any distress, patient continues to have nasogastric tube in place although he did have a J-tube placed yesterday. Patient was seen by oncology for his non-Hodgkin's lymphoma involving the gastric outlet. Today's x-ray showed evidence of pneumonia/bilateral interstitial infiltrate/edema patient was given a dose of Lasix, I reminded the patient had an aspiration episode which was significant. And he required intubation mechanical ventilation for a few days.WBC count today is 9.1 hemoglobin 7.9 electrolytes are normal renal profile is normal hence I plan to transfer the patient out of the ICU to a cardiac floor. And hopefully discharge planning in the next 2 days for The patient was seen today November 18, 2023 in follow-up in the intensive care unit. He is currently sitting up in bed. Awake and alert in no acute distress. He is maintaining O2 saturations in the 90s on 5 L/min per nasal cannula. Glucose 177. Remains on DuoNeb inhalations and Solu-Medrol. Antibiotics in the form of Zosyn. He has a J-tube in place. He was initiated on vital AF 1.2 at 10 mL an hour with a goal of 82 mL/h The patient is seen today November 19, 2023 in follow-up in the intensive care unit. He is a regular medical floor overflow patient. He is currently sitting up in a chair. Awake and alert in no acute distress. He is maintaining O2 saturations in the 90s on 5 L/min per nasal cannula. No IV fluids. He denies any worsening shortness of breath, cough or congestion. He is having some issues with diarrhea. He remains on Zosyn. He is receiving vital AF at 55 mL/h with a goal of 82 mL/h. Glucose 161. Solu-Medrol, DuoNeb inhalations. The patient is seen today November 20, 2023 in follow-up on the regular medical floor. He is currently up in a chair at the bedside. Awake and alert in no acute distress. Denies any worsening shortness of breath, cough or congestion. He is maintaining O2 saturation in the 90s on 3 L/min per nasal cannula. He continues on Zosyn. Continues on bronchodilators and steroids. White count 12.3. Hemoglobin 9.0. Platelets 258. Glucose 168. He is not tolerating his tube feeds as he has developed diarrhea. C. difficile screen was negative. Abdominal series revealed cardiomegaly with left basilar acute infiltrate and/or atelectasis. Overall nonspecific bowel gas pattern. A small bowel obstruction needs to be considered. Progress note dated November 21, 2023. The patient is seen in room 517. The patient is currently on 3 L of oxygen. He continues on Zosyn. His biggest complaint has been abdominal discomfort and diarrhea. He did have a CT scan of the abdomen and pelvis. Current laboratory data includes a white count of 14.4, hemoglobin 8.8, hematocrit 28.7, and platelet count 229,000. Sodium 139, potassium 4.1, chlorides 103, CO2 30, BUN 42, creatinine 0.94. Glucose is 158. Calcium is 8.5. Progress note dated November 22, 2023. 73-year-old male seen in room 517. He currently is on 2 L of oxygen. Room air saturation was 89%. Chest CT shows bilateral patchy infiltrates. He continues on Zosyn. He is still not taking anything by mouth. No new laboratory data today other than a glucose of 138. Gram stain was negative. Progress note dated November 23, 2023. 73-year-old male seen in room 517. He is resting comfortably without com plaints. He continues on saline at 10 cc an hour, tube feedings with Pivot at 20 cc an hour, Zosyn, and 2 L by nasal cannula. He has had an uneventful night. Laboratory data today includes a white count 14.5, hemoglobin 9.7, hematocrit 31.4, and a platelet count of 242,000. Sodium 138, potassium 3.7, chlorides 106, CO2 26, BUN 39, creatinine 0.95. Glucose is 181. Calcium is 8.5. Sputum sampling was negative. Objective - Vital Signs Vital signs: Vital Signs Temp 98 F 11/23/23 01:46 Pulse 71 11/23/23 01:46 Resp 16 11/23/23 01:46 BP 147/87 11/23/23 01:46 Pulse Ox 96 11/23/23 01:46 FiO2 40 11/16/23 13:09 Intake & Output 11/22/23 11/22/23 11/23/23 06:59 18:59 06:59 Intake Total 320 Output Total 200 1 Balance -200 319 Weight 90.265 kg 90.265 kg 75.5 kg Intake: IV 200 Piperacillin-Tazobactam 3 200 .375 gm In Sodium Chloride 0.9% 100 ml @ 25 mls/hr IVPB Q8HR [facility], [facility] Rx# :[id number] Tube Feeding 120 Output: Urine 200 Stool 1 Other: Voiding Method Bedside Commode Bedside Commode Urinal Urinal # Voids 1 3 - Exam No acute distress, oriented 3. Currently on 2 L nasal cannula. No respiratory distress. HEENT examination is grossly unremarkable. Mucous membranes are moist. No oral lesions. Neck supple. Full range of motion. No adenopathy thyromegaly or neck vein distention. Cardiovascular examination reveals regular rhythm rate. S1-S2 normal. No S3 or S4. No discernible murmur noted. Lungs reveal mild scattered rhonchi. No wheezes or crackles. Breath sounds equal. Saturation on 2 L is 96%. Abdomen soft bowel sounds are heard. No masses or tenderness. J-tube is noted. No drainage. Extremities are intact. No cyanosis clubbing or edema. Skin is without rash or lesion. Neurologic examination is brief but nonfocal. - Labs CBC & Chem 7: 11/23/23 03:32 11/23/23 03:32 Labs: Abnormal Lab Results - Last 24 Hours (Table) 11/22/23 11/22/23 11/22/23 Range/Units 07:16 11:51 17:05 WBC (3.8-10.6) k/uL RBC (4.30-5.90) m/uL Hgb (13.0-17.5) gm/dL Hct (39.0-53.0) % RDW (11.5-15.5) % Neutrophils # (1.3-7.7) k/uL BUN (9-20) mg/dL Glucose (74-99) mg/dL POC Glucose (mg/dL) 161 H 138 H 158 H (70-110) mg/dL 11/22/23 11/23/23 11/23/23 Range/Units 20:11 03:32 03:32 WBC 14.5 H (3.8-10.6) k/uL RBC 3.55 L (4.30-5.90) m/uL Hgb 9.7 L D (13.0-17.5) gm/dL Hct 31.4 L (39.0-53.0) % RDW 18.7 H (11.5-15.5) % Neutrophils # 12.9 H (1.3-7.7) k/uL BUN 39 H (9-20) mg/dL Glucose 181 H (74-99) mg/dL POC Glucose (mg/dL) 142 H (70-110) mg/dL Assessment and Plan Assessment: Acute hypoxic respiratory failure requiring intubation mechanical ventilation secondary to aspiration during EGD on 11/12/2023. Patient was extubated on 11/14/2023. Status post J-tube placement 11/16/2023, postoperative day #7. Acute aspiration pneumonia. Acute aspiration during upper endoscopy most likely secondary to gastric outlet obstruction secondary to non-Hodgkin's lymphoma. Chronic abdominal pain, secondary to lymphoma. Unexplained weight loss most likely secondary non-Hodgkin's lymphoma involving the stomach. Paroxysmal atrial fibrillation. Plan: Plan dated November 21, 2023. The patient is seen today in room 517. The patient is on 3 L of oxygen. He continues on Zosyn. Continues on tube feeds. He had a CT scan of the abdomen and pelvis. His respiratory status is improved. We will continue to follow. Prognosis is guarded. Labs, x-rays, medications are reviewed. The patient is apparently scheduled for an outpatient PET scan. Plan dated November 22, 2023. The patient appears very stable. His is in the room with him. Labs, x- rays, and medications are reviewed. The patient continues on Zosyn. Resting room air saturation was 89%. Chest CT, revealed bilateral patchy and basilar infiltrates. We will continue to follow make recommendations along the way. Prognosis is guarded. The patient was diagnosed with a gastric outlet obstruction, secondary to non-Hodgkin's lymphoma. Plan dated November 23, 2023. The patient is seen today in room 517. He is resting comfortably. He continues on saline at 10 cc an hour. He is getting tube feedings with Pivot at 20 cc an hour. He has been weaned down to 2 L of oxygen. He continues on Zosyn. Labs, x-rays, and all medications are reviewed. Prognosis is guarded. We will continue to follow. Time with Patient: Less than 30
[2023-11-23 07:08] LABS: Glucose,Whole Blood 151 mg/dL (70-110)
--- NOTE | 2023-11-23 09:24 | P.PN ---
Progress Note - Text Progress Note Date: 11/23/23 HISTORY OF PRESENT ILLNESS: Patient abdominal pain has improved. Tolerating Tube Feeds with no residuals. PHYSICAL EXAM: VITAL SIGNS: Reviewed. GENERAL: Well-developed in no acute distress. CHEST: Mediport site right chest, clean dry and intact ABDOMEN: Soft. Mildly distended. Mild tenderness around J-tube site on the left side of the abdomen NEUROLOGIC: Alert and oriented. Cranial nerves II through XII grossly intact. ASSESSMENT: 1. Possible small bowel obstruction noted on CT scan with transition point reported at the J-tube site. 2. Non-Hodgkin lymphoma noted on stomach biopsy from EGD 3. Severe protein calorie malnutrition 4. Aspiration pneumonia PLAN: -Tube Feeds Advanced to 20 cc/hr -Continue antibiotics Dick Ewing DO [facility] [phone]
[2023-11-23 12:08] LABS: Glucose,Whole Blood 155 mg/dL (70-110)
--- NOTE | 2023-11-23 13:51 | P.PN ---
Subjective Progress Note Date: 11/23/23 Interval History: This is a 73-year-old patient, follows with Dr. Patricia Deal. Patient was seen this morning in the ICU. Patient's and daughter at the bedside. History obtained predominantly by the . Patient been having trouble with his stomach symptoms for close to 8 months. Patient underwent EGD by Dr. Sahara Cheng yesterday. Patient was found to have ulcerated around the antrum and obstruction to the pylorus. A lot of retained food was found. Patient aspirated. Had to be intubated and brought to the ICU. On a Levophed drip. FiO2 50 and a PEEP of 6. Patient had been losing weight lost about 25 pounds. Previously has a history of mitral valve prolapse. November 13: ICU. Patient remains on Precedex drip and propofol drip. Did not do well attempted extubation yesterday. Patient been off Levophed. NG tube to suction. Spoke to patient's and son at the bedside. Biopsy results awaited. Hemoglobin dropped to 6.9 this morning. Get a unit of blood. November 14: ICU. Up in a chair. Extubated yesterday. NG tube to suction. at the bedside. 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 Oncology was consulted. They have ordered a port. Results discussed with Dr. Sahara Cheng. General surgery was consu lted for J-tube placement. Discussed with at the bedside. Patient getting IV fluids, IV Zosyn,. Patient has been on IV amiodarone for A-fib-back in sinus rhythm. Multiple PACs. Did receive unit of blood yesterday. Also IV ferric gluconate. November 15: ICU. Patient earlier today underwent jejunostomy tube placement and a port placement. Patient awake. Answering questions. NG tube to suction present. Updated patient's . Patient remains on IV amiodarone and IV Zosyn. November 16: ICU. Up in the chair. NG tube present but not to suction. Trickle feeding through the jejunostomy tube should be started today. Dietitian has been on board. IV Zosyn to continue. Patient's and his sister at the bedside. Discussed. Also spoke with Dr. Serna. Given patient has no other predisposing cardiac factors for the A-fib except acute illness. His LV function is normal. Left atrium is normal. He has already been loaded with IV amiodarone. Will switch him to oral Lopressor 12.5 twice daily. Hence will DC amiodarone. Patient yesterday had wheezing was put on bronchodilators steroids per pulmonary. November 17: Propped up in bed. NG tube was discontinued. Sinus rhythm. Remains NPO. Getting G-tube feeding at 40 cc an hour. Dietitian following. Get arrangements done for DC home tomorrow including tube feeding. Increase activity discussed with patient and elder daughter at the bedside. Still requiring oxygen. Incentive spirometry. November 18: Patient up in recliner. Earlier today spoke to social work nurse David. Informed patient is rather weak and will be going to the [facility]. Looking at authorization. Denae came to the room and spoke to patient his and his daughter. They are very keen to take the patient home as 3 daughters all nurses and they will take care of him at home. Patient earlier today to abdominal cramping and some loose stools.'s tube feeding was held. Told the nurse to start back at the rate of 40 cc an hour. He was before the getting it at 55 cc an hour. Incentive spirometry was again emphasized. Patient remains on 4 L of oxygen. November 19: I saw the patient this morning. Hence I am in the evening. Morning was sitting with his sons. Has some edema. Lungs had crackles I gave him 40 mg of Lasix. He did make good urine. Tube feeding was held from the previous evening of because of abdominal cramping. Acute abdominal series showed nonspecific bowel gas pattern and SBO to be ruled out. Family and patien t was updated. Told him discharge will depend on day by day. Later this afternoon CT scanAnd abdomen pelvis done. Showed small bowel to be 3 point centimeter dilated. Some anasarca. Gastric findings. Gallstones. Later spoke to Dr. Irby from general surgery. They will further review and decide about further plan of action. Will give further dose of IV Lasix because of fluid overload from likely hypoalbuminemia and IV fluids previously received. Patient may take his pills by mouth. Total time spent today about 1 hour with over 40 minutes of discussion. Patient did state his breathing is better after Lasix this morning. November 20: Saw the patient this morning. was present. Patient received 2 more doses of Lasix. Diuresed well. Breathing much better. Lungs are soundi ng better. Discussed with Dr. Zepeda other surgeon. He is taking 3 cc out of the balloon and the gastrostomy tube. Started trickle feeding at 5 cc an hour. Will see how this does. Later in the day ran into the and the daughter again. Did update them on the same. Dilaudid was discontinued yesterday but morphine was ordered by surgery for patient having pain. Concerns about GI issues with that we will DC the morphine. As family does not want the same. November 21: Patient reclining bed. Tired. Several family members at the bedside. Including his and eldest daughter. Patient started on trickle feed yesterday at 5 cc an hour. This morning he has been on [address] ill having some loose stools. C. difficile was ordered. Patient on 2 L of nasal cannula. Has diuresed well. Will give an additional dose of Lasix today. If C. difficile is negative and the diarrhea is from the tube feedings we may have to use a fecal management system to keep him comfortable. Otherwise patient remains NPO. Dietitian is following the patient. Care was discussed length with patient the and daughter at the bedside. Questions answered. Liquid Tylenol has been added for abdominal pain. Avoid narcotics. Elevated white count likely from Solu-Medrol 11/23/2023--patient was feeling better today. Multiple family member at bedside. No issues overnight. Normal saline at 10 cc an hour, tube feeding at 20 cc an hour, remains on Zosyn, on 3 L oxygen. Afebrile. Heart rate 62, respiratory rate 16, blood pressure 114/67, saturating 91% on 3 L. WBCs 14.5, 9.7 hemoglobin. Platelet 242. BMP is unremarkable. Pulmonary and general surgery following. General surgery recommended to continue tube feeds at 20 cc/h. Assessment and plan: -Aspiration pneumonitis bilateral from retained gastric contents mostly food and liquids, causing acute hypoxic respiratory failure: IV Zosyn Pulmonary following -Acute pulmonary edema and fluid overload from hypoalbuminemic state and fluids from IV.: Improving Patient received a total of 3 doses of IV Lasix 40 mg.. Will give 1 more dose of IV Lasix 40 mg today -Possible small bowel obstruction. Unclear if related to jejunostomy tube. Bowel involvement with lymphoma also possible.: Jejunostomy tube balloon deflated by 3 mm-November 20. Apparently about 10 cc put initially. Trickle feeding at 10cc an hour. Being followed by surgery -Acute kidney injury. Possible ATN from hypotensive shock: Corrected Renal ultrasound unremarkable Seen by nephrology. -Nutrition Jejunostomy tube placed November [address] Ewing Tube feeding at 10 cc an hour. -Acute critical care transitional atrial fibrillation-sinus rhythm IV amiodarone. Discussed with Dr. Serna from cardiology. Stop amiodarone. Lopressor 12.5 twice daily -Acute hypoxic respiratory failure from aspiration pneumonia, status post ventilator assisted: Now 2 L nasal cannula Incentive spirometry -Normocytic anemia likely to secondary underlying lymphoma Iron deficiency anemia Received a unit of blood. IV iron. -Acute blood loss anemia, could be oozing from biopsy site in the stomach Received blood -GERD PPI -Acute diarrhea secondary to tube feeding. C. difficile ruled out. -Large superficial gastric antral ulceration involving the gastric antrum extending into the pylorus with gastric outlet obstruction. 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 Port placed. For outpatient PET scan. -Full code Tube feeding at 10 cc an hour. Discussed with patient and . Being followed by surgery. PHYSICAL EXAMINATION: GENERAL: The patient is A&O x3, NAD HEENT: EOMI, Sclerae anicteric, Moist Mucous membranes Neck: Supple, Non tender, No JVD PULMONARY: Equal breath souds B/L, No wheezing, No crackles. CARDIOVASCULAR: S1, S2 present. No murmurs, rubs, or gallops. ABDOMEN: Soft, nontender, nondistended, normoactive bowel sounds. No guarding or rebound tenderness. MUSCULOSKELETAL: No edema, No cyanosis. No clubbing. Normal ROM. Intact peripheral pulses. EXTREMITIES: No cyanosis, clubbing, or pedal edema. NEUROLOGICAL: CN 2-12 grossly intact. No FND Skin: No Rash REVIEW OF SYSTEMS: CONSTITUTIONAL: No fever or chills. CARDIOVASCULAR: No chest pain, palpitations or syncope. PULMONARY: No shortness of breath, no cough, sore throat. GASTROINTESTINAL: No nausea, vomiting, diarrhea, abdominal pain. : No Dysuria, urgency, frequency. Extremities: No edema. NEUROLOGICAL: No headaches, no weakness, or numbness Dictation was produced using [employer] dictation software. please excuse any grammatical, word or spelling errors. Objective - Vital Signs Vital signs: Vital Signs Temp 98.5 F 11/23/23 13:08 Pulse 62 11/23/23 13:08 Resp 16 11/23/23 13:08 BP 114/67 11/23/23 13:08 Pulse Ox 91 L 11/23/23 13:08 FiO2 40 11/16/23 13:09 Intake & Output 11/22/23 11/23/23 11/23/23 18:59 06:59 18:59 Intake Total 320 Output Total 1 Balance 319 Weight 90.265 kg 75.5 kg Intake: IV 200 Piperacillin-Tazobactam 3 200 .375 gm In Sodium Chloride 0.9% 100 ml @ 25 mls/hr IVPB Q8HR [facility] Rx# :[id number] Tube Feeding 120 Output: Stool 1 Other: Voiding Method Bedside Commode Bedside Commode Urinal Urinal # Voids 1 3 - Labs CBC & Chem 7: 11/23/23 03:32 11/23/23 03:32 Labs: Abnormal Lab Results - Last 24 Hours (Table) 11/22/23 11/22/23 11/23/23 Range/Units 17:05 20:11 03:32 WBC 14.5 H (3.8-10.6) k/uL RBC 3.55 L (4.30-5.90) m/uL Hgb 9.7 L D (13.0-17.5) gm/dL Hct 31.4 L (39.0-53.0) % RDW 18.7 H (11.5-15.5) % Neutrophils # 12.9 H (1.3-7.7) k/uL BUN (9-20) mg/dL Glucose (74-99) mg/dL POC Glucose (mg/dL) 158 H 142 H (70-110) mg/dL 11/23/23 11/23/23 11/23/23 Range/Units 03:32 07:06 12:05 WBC (3.8-10.6) k/uL RBC (4.30-5.90) m/uL Hgb (13.0-17.5) gm/dL Hct (39.0-53.0) % RDW (11.5-15.5) % Neutrophils # (1.3-7.7) k/uL BUN 39 H (9-20) mg/dL Glucose 181 H (74-99) mg/dL POC Glucose (mg/dL) 151 H 155 H (70-110) mg/dL
[2023-11-23 18:13] LABS: Glucose,Whole Blood 161 mg/dL (70-110)
[2023-11-24 00:15] LABS: Glucose,Whole Blood 158 mg/dL (70-110)
--- NOTE | 2023-11-24 03:35 | P.PN ---
Progress Note - Text Progress Note Date: 11/24/23 HISTORY OF PRESENT ILLNESS: Patient abdominal pain has improved. Tolerating Tube Feeds with no residuals. PHYSICAL EXAM: VITAL SIGNS: Reviewed. GENERAL: Well-developed in no acute distress. CHEST: Mediport site right chest, clean dry and intact ABDOMEN: Soft. Mildly distended. Mild tenderness around J-tube site on the left side of the abdomen NEUROLOGIC: Alert and oriented. Cranial nerves II through XII grossly intact. ASSESSMENT: 1. Possible small bowel obstruction noted on CT scan with transition point reported at the J-tube site. 2. Non-Hodgkin lymphoma noted on stomach biopsy from EGD 3. Severe protein calorie malnutrition 4. Aspiration pneumonia PLAN: -Ok to Advance Tube Feeds to Goal -Continue antibiotics Dick Ewing DO [facility] [phone]
[2023-11-24 05:16] LABS: Glucose,Whole Blood 177 mg/dL (70-110)
[2023-11-24] MEDS: HYDROcodone/APAP 5-325MG 1 EACH TAB PO PRN (07:05)
--- NOTE | 2023-11-24 07:33 | XR ---
EXAMINATION TYPE: XR abdomen 2V DATE OF EXAM: 11/24/2023 COMPARISON: CT abdomen 11/20/2023 INDICATION: Leaking J-tube abdomen pain TECHNIQUE: Single view abdomen upright position FINDINGS: There are multiple scattered air-fluid levels within dilated small bowel loops with some differential air-fluid levels are present. Psoas margins are normal. No organomegaly is present. J-tube is in the midline. No mass effect is evident. No free air is evident. Small amount of bowel ga s within the descending colon IMPRESSION: 1. Multiple air-fluid levels or differential air-fluid levels within dilated small bowel loops. Corre late for partial small bowel obstruction [facility], , 11/24/2023 7:31 AM
--- NOTE | 2023-11-24 08:33 | XR ---
EXAMINATION TYPE: XR abdomen 1V DATE OF EXAM: 11/24/2023 COMPARISON: Earlier abdomen x-ray INDICATION: Leaking J-tube TECHNIQUE: Single view abdomen . FINDINGS: There are dilated loops of bowel present. Catheter is midline contrast. The loops of bowel. A normal caliber. No extravasation of contrast. Psoas margins are normal. No organomegaly is present. IMPRESSION: 1. J-tube without extravasation of contrast. Bowel loops appear normal caliber contrast. 2. Dilated small bowel loops upper abdomen. [facility], , 11/24/2023 8:30 AM
--- NOTE | 2023-11-24 08:50 | XR ---
EXAMINATION TYPE: XR chest 1V portable DATE OF EXAM: 11/24/2023 COMPARISON: 11/19/2023 INDICATION: Pneumonia TECHNIQUE: Single frontal view of the chest is obtained. FINDINGS: The heart size is normal. The pulmonary vasculature is normal. Mild left lower lobe infiltrate is present. Correlate for atelectasis or pneumonia. Follow-up is eunice mmended. Catheter is present on the right superior vena cava region. IMPRESSION: 1. Left lower lobe infiltrate comparison. Correlate for pneumonia and atelectasis. Follow-up is recom mended. [facility], , 11/24/2023 8:47 AM
[2023-11-24] MEDS ORDERED: ACETAMINOPHEN ORAL SUSP (PEDS) 3,840 MG/120 ML BOTTLE PO PRN (09:55)
[2023-11-24 09:59] LABS: Basophils # (A) 0.01 X 10*3/uL (0.00-0.10); Basophils % (A) 0.1 %; Eosinophils # (A) 0 X 10*3/uL (0.04-0.35); Eosinophils % (A) 0 %; HCT 29.5 % (39.6-50.0); HGB 8.9 g/dL (13.0-17.0); Lymphocytes # (A) 1.28 X 10*3/uL (0.90-5.00); Lymphocytes % (A) 9.1 %; MCHC 30.2 g/dL (32.0-37.0); MCV 89.4 FL (80.0-97.0); Mean Platelet Volume 10.7 FL (9.5-12.2); Monocytes # (A) 0.75 X 10*3/uL (0.20-1.00); Monocytes % (A) 5.3 %; NRBC Per 100 WBC 0 X 10*3/uL (0.00-0.01); Neutrophils # (A) 11.93 X 10*3/uL (1.80-7.70); Neutrophils % (A) 84.8 %; Platelet Count 255 X 10*3/uL (140-440); RDW 18.8 % (11.5-14.5); WBC 14.07 X 10*3/uL (4.50-10.00)
[2023-11-24] MEDS: SODIUM CHLORIDE 0.9% 500 ML IV ONE (10:22)
--- NOTE | 2023-11-24 10:27 | CT ---
EXAMINATION TYPE: CT abdomen pelvis w con DATE OF EXAM: 11/24/2023 COMPARISON: Plain films same day INDICATION: leaking J tube, SOB, abdominal pain DLP: 1411.9 mGycm, Automated exposure control for dose reduction was used. CONTRAST: 100 mL of Isovue 300. Study performed without Oral Contrast TECHNIQUE: Axial images were obtained from above the diaphragm to the pubic rami in the axial plane a t 5 mm thick sections. Reconstructed images are reviewed on the computer in the coronal plane. FINDINGS: Limited CT sections are obtained the lung bases. Bibasilar infiltrates. Correlate for atelectasis or pneumonia.. CT ABDOMEN: Small amount of free fluid is present in abdomen. This is adjacent to the liver in the ri ght paracolic gutter and pelvis. Some minimal fluid is adjacent to the spleen. Small amount of free air is present. Stomach is distended with fluid. There are multiple loops of small bowel distended with fluid. This e xtends to the pelvis. J-tube with contrast nondilated small bowel loops within the midabdomen. Additi onal small bowel loops however are dilated. These extend to the right lower quadrant contrast. Contra st is within the cecum. Zone of transition is not identified. The dilated loops of bowel appear to be within the proximal jejunum distal to the duodenum. This extends through the abdomen and pelvis. How ever, the tube appears to be within distal ileum. Liver: Normal Spleen: Normal Pancreas: Normal Adrenal glands: The adrenal glands are normal. Gallbladder: Few small gallbladder stones are within the neck of the gallbladder. Kidneys: No masses are evident. No hydronephrosis is present. No cysts are present. Delayed images were obtained through the kidneys, which remain unremarkable. Aorta: Vascular calcification is within the aorta. Inferior vena cava: Normal. CT PELVIS: Appendix: Not identified. No dilated tubular structure in the right. Urinary bladder: Normal. Genitourinary structures: Prostate Unremarkable Osseous structures: No suspicious lytic or sclerotic lesions. IMPRESSION: 1. Multiple dilated small bowel loops may be a small bowel obstruction. 2. Pneumoperitoneum. Report was called to the floor by Dr. Buchanan at the time of interpretation. 3. Small amount of ascites 4. Cholelithiasis. 5. Evaluate placement of the J-tube. [facility], , 11/24/2023 10:25 AM
[2023-11-24] MEDS: ACETAMINOPHEN IV (For NPO) 1,000 MG in EMPTY BAG 1 BAG IVPB SCH (11:21)
[2023-11-24 11:52] LABS: Glucose,Whole Blood 143 mg/dL (70-110)
[2023-11-24] MEDS: HYDROmorphone 0.5 MG/0.5 ML SYRINGE IVP STA (12:51)
[2023-11-24] MEDS: SODIUM CHLORIDE 0.9% 1,000 ML IV ONE (13:00)
--- NOTE | 2023-11-24 13:05 | P.PN ---
Subjective Progress Note Date: 11/24/23 Principal diagnosis: Abdominal pain. This is a 73-year-old white male with history of chronic abdominal pain for the last 8 months has been treated with Protonix 40 mg daily for the last 3 months with no improvement. Patient had a 22 pound weight loss in the last [address] of the abdomen and pelvis 3 weeks ago showed thickening of the antral wall with pathological adenopathy posterior to the stomach suspicious of neoplasm. Today the patient underwent elective upper endoscopy to evaluate further, patient received IV sedation by anesthesia endoscope was inserted into the mouth, esophagus was intubated without any difficulty there was evidence of large amount of liquid and solid food noted in the stomach suggestive of gastric outlet obstruction. Scope could not be advanced through the pylorus, however in the prepyloric area there was a large superficial ulceration identified with multiple biopsies were done from this area. The body cardia and fundus could not adequately visualize because of large amount of retained food in the stomach. Scope was withdrawn back to the stomach and upon careful examination the mucosa of the antrum body and cardia as well as the fundus appeared normal. Procedure was being performed and biopsies were done patient threw up and subsequently became hypoxic there was clearly evidence of witnessed aspiration anesthesia intubated the patient, procedure was terminated, and the patient was transferred to the ICU, this consult was initiated. Patient is now on assist- control rate of 20 tidal volume 500 FiO2 70% PEEP of 10 ABG is pending, earlier ABG showed profound hypoxia patient is on propofol at 50 mcg/kg/min, next ABG is pending. Chest x-ray showed chronic changes without evidence of acute pulmonary disease. Patient was seen and examined today on 11/13/2023, remains in the ICU, intubated mechanically ventilated, on assist-control rate of 20 tidal volume 500 FiO2 50% and PEEP of 10 ABG showed a pO2 of 143 pCO2 47 pH of 7.28 hence PEEP was cut down to 6, and increased rate to 22. Patient is still requiring IV fluid at 100 cc/h/LR. Requiring norepinephrine at 0.08 mcg/kg/min he is also on propofol at 50 mg/kg/min antibiotics arce patient is receiving Zosyn. Chest x-ray is showing worsening infiltrates specially in the left lung. This could be related to aspiration pneumonia. Patient had witnessed aspiration during endoscopy/upper endoscopy.WBC count is 14 hemoglobin 7.6 basic metabolic profile is normal BUN is 26 creatinine 1.57 obviously the patient sustained some acute kidney injury baseline creatinine 0.86 patient had received fluids over the last 24 hours, remains on fluids at 100 cc/h Patient with seen and examined today on 11/14/2023, patient remains in the ICU, intubated and mechanically ventilated. Failed weaning trial yesterday and he became quite agitated and desaturated once he went off propofol. Had to be placed back on assist-control mode of mechanical ventilation and sedation. Today the patient is on assist-control rate of 22 tidal volume 500 FiO2 50% PEEP of 6. ABG showed a pO2 of 123 pCO2 51 pH of 7.32, and I cut down his FiO2 down to 45%, patient is receiving a unit of packed RBCs for hemoglobin of 6.9 today. Patient had an episode of A-fib RVR at 3 AM in the morning, seen by cardiology, and recommended patient goes on amiodarone. Still requiring norepinephrine at 0.05 mg/kg/min, he is on LR at 100 cc/h propofol at 50 mg/kg/min. Remains empirically on Zosyn for aspiration pneumonia. My plan today is transitioning the patient to Precedex, hopefully discontinue propofol, and at least give the patient a decent weaning trial or at least check weaning parameters before we proceed to weaning trial. Chest x-ray continues to show evidence of pneumonia mostly in the left lung and left lower lobe more specifically. Some pulmonary vascular congestion is noted with interstitial edema, small pleural effusion is also noted/left side. WBC count today is 12 hemoglobin 6.9 basic metabolic profile is normal bicarb is 25, BUN is 25 creatinine is improving down to 1.21 from 1.57 yesterday Patient was evaluated today on 11/15/2023, patient remains in the ICU, he was extubated yesterday, and his extubation was relatively uneventful. However the patient continues to have nasogastric tube in place, his pathology report came back showing non-Hodgkin's lymphoma, patient has gastric outlet obstruction, and the recommendation by GI is to consult surgery for a jejunostomy tube which is appropriate. Patient will be seen today by oncology and he will be [facility] by [facility]. In the meantime patient is comfortable, he is on 5 L nasal cannula he has LR running at 100 cc/h, he is remains on Zosyn for aspiration pneumonia remains on amiodarone which was started by cardiology for atrial fibrillation with RVR, presently in sinus rhythm. Cannot switch him to oral because of the fact that remains n.p.o., patient remains on TPN. WBC count is 10.7 hemoglobin 7.5 electrolytes are normal renal profile is normal, creatinine normalized to 0.96 Patient was evaluated today on 11/16/2023, remains in the ICU, on 5 L nasal cannula remains on amiodarone at 0.5 mg/min remains on LR at 100 cc/h, however his chest x-ray is showing some component of interstitial edema or could be findings related to his recent episode of aspiration/aspiration pneumonia, nonetheless the patient seems to be a bit symptomatic, he has intermittent cough and wheezing, I am recommending Lasix 40 mg IV push, cut down his IV fluid to 50 cc/h, continue Zosyn, patient will be placed on DuoNeb updrafts and on Solu- Medrol. Patient is scheduled to have jejunostomy-tube placement today. WBC count is 13 hemoglobin 7.7 basic metabolic profile is normal and renal profile is normal Patient was evaluated today on 11/17/2023, patient underwent uneventful placement of a jejunostomy tube yesterday, in the ICU on 5 L, patient is relatively stable, not in any distress, patient continues to have nasogastric tube in place although he did have a J-tube placed yesterday. Patient was seen by oncology for his non-Hodgkin's lymphoma involving the gastric outlet. Today's x-ray showed evidence of pneumonia/bilateral interstitial infiltrate/edema patient was given a dose of Lasix, I reminded the patient had an aspiration episode which was significant. And he required intubation mechanical ventilation for a few days.WBC count today is 9.1 hemoglobin 7.9 electrolytes are normal renal profile is normal hence I plan to transfer the patient out of the ICU to a cardiac floor. And hopefully discharge planning in the next 2 days for The patient was seen today November 18, 2023 in follow-up in the intensive care unit. He is currently sitting up in bed. Awake and alert in no acute distress. He is maintaining O2 saturations in the 90s on 5 L/min per nasal cannula. Glucose 177. Remains on DuoNeb inhalations and Solu-Medrol. Antibiotics in the form of Zosyn. He has a J-tube in place. He was initiated on vital AF 1.2 at 10 mL an hour with a goal of 82 mL/h The patient is seen today November 19, 2023 in follow-up in the intensive care unit. He is a regular medical floor overflow patient. He is currently sitting up in a chair. Awake and alert in no acute distress. He is maintaining O2 saturations in the 90s on 5 L/min per nasal cannula. No IV fluids. He denies any worsening shortness of breath, cough or congestion. He is having some issues with diarrhea. He remains on Zosyn. He is receiving vital AF at 55 mL/h with a goal of 82 mL/h. Glucose 161. Solu-Medrol, DuoNeb inhalations. The patient is seen today November 20, 2023 in follow-up on the regular medical floor. He is currently up in a chair at the bedside. Awake and alert in no acute distress. Denies any worsening shortness of breath, cough or congestion. He is maintaining O2 saturation in the 90s on 3 L/min per nasal cannula. He continues on Zosyn. Continues on bronchodilators and steroids. White count 12.3. Hemoglobin 9.0. Platelets 258. Glucose 168. He is not tolerating his tube feeds as he has developed diarrhea. C. difficile screen was negative. Abdominal series revealed cardiomegaly with left basilar acute infiltrate and/or atelectasis. Overall nonspecific bowel gas pattern. A small bowel obstruction needs to be considered. Progress note dated November 21, 2023. The patient is seen in room 517. The patient is currently on 3 L of oxygen. He continues on Zosyn. His biggest complaint has been abdominal discomfort and diarrhea. He did have a CT scan of the abdomen and pelvis. Current laboratory data includes a white count of 14.4, hemoglobin 8.8, hematocrit 28.7, and platelet count 229,000. Sodium 139, potassium 4.1, chlorides 103, CO2 30, BUN 42, creatinine 0.94. Glucose is 158. Calcium is 8.5. Progress note dated November 22, 2023. 73-year-old male seen in room 517. He currently is on 2 L of oxygen. Room air saturation was 89%. Chest CT shows bilateral patchy infiltrates. He continues on Zosyn. He is still not taking anything by mouth. No new laboratory data today other than a glucose of 138. Gram stain was negative. Progress note dated November 23, 2023. 73-year-old male seen in room 517. He is resting comfortably without com plaints. He continues on saline at 10 cc an hour, tube feedings with Pivot at 20 cc an hour, Zosyn, and 2 L by nasal cannula. He has had an uneventful night. Laboratory data today includes a white count 14.5, hemoglobin 9.7, hematocrit 31.4, and a platelet count of 242,000. Sodium 138, potassium 3.7, chlorides 106, CO2 26, BUN 39, creatinine 0.95. Glucose is 181. Calcium is 8.5. Sputum sampling was negative. Progress note dated November 24, 2023. 73-year-old male who is seen in room 517. The patient has been having significant abdominal discomfort, and went for a evaluation, ordered by surgery today, to determine whether or not the feeding tube, was in proper position, and whether or not there is anything acutely going on in the abdomen. He had been having diarrhea. He is on 3 L of oxygen. He has been here for 12 days. This is a patient, that had a prior EGD, aspirated, because of gastric outlet obstruction, and was diagnosis of non-Hodgkin's lymphoma. He is currently on Zosyn, DuoNebs, and Solu-Medrol. He has been NPO. Chest x-ray showed a left lower lobe infiltrate. Abdominal x-ray showed multiple air-fluid levels. CT of the abdomen showed multiple dilated small bowel loops, consistent with obstruction, pneumoperitoneum, ascites, and cholelithiasis. White count was 14.1, hemoglobin 8.9, hematocrit 29.5, and platelet count was 255,000. Glucose was 143. Objective - Vital Signs Vital signs: Vital Signs Temp 98.1 F 11/24/23 07:24 Pulse 113 H 11/24/23 11:46 Resp 18 11/24/23 11:46 BP 100/67 11/24/23 11:46 Pulse Ox 92 L 11/24/23 11:46 FiO2 40 11/16/23 13:09 Intake & Output 11/23/23 11/24/23 11/24/23 18:59 06:59 18:59 Weight 78 kg Other: Voiding Method Toilet Bedside Commode # Voids 3 3 # Bowel Movements 2 - Exam No acute distress, oriented 3. Currently on 5 L nasal cannula. No respiratory distress. HEENT examination is grossly unremarkable. Mucous membranes are moist. No oral lesions. Neck supple. Full range of motion. No adenopathy thyromegaly or neck vein distention. Cardiovascular examination reveals regular rhythm rate. S1-S2 normal. No S3 or S4. No discernible murmur noted. Most recent blood pressure was 100/67 with a mean of 78. Lungs reveal mild scattered rhonchi. No wheezes or crackles. Breath sounds equal. Saturation is 92% on 5 L. Abdomen distended without bowel sounds. J-tube is noted. No drainage. Extremities are intact. No cyanosis clubbing or edema. Skin is without rash or lesion. Neurologic examination is brief but nonfocal. - Labs CBC & Chem 7: 11/24/23 03:40 11/23/23 03:32 Labs: Abnormal Lab Results - Last 24 Hours (Table) 11/23/23 11/24/23 11/24/23 Range/Units 18:12 00:13 03:40 WBC 14.07 H (4.50-10.00) X 10*3/uL RBC 3.30 L (4.40-5.60) X 10*6/uL Hgb 8.9 L (13.0-17.0) g/dL Hct 29.5 L (39.6-50.0) % MCHC 30.2 L (32.0-37.0) g/dL RDW 18.8 H (11.5-14.5) % Immature Gran # 0.10 H (0.00-0.04) X 10*3/uL Neutrophils # 11.93 H (1.80-7.70) X 10*3/uL Eosinophils # 0 L (0.04-0.35) X 10*3/uL POC Glucose (mg/dL) 161 H 158 H (70-110) mg/dL 11/24/23 11/24/23 Range/Units 05:15 11:50 WBC (4.50-10.00) X 10*3/uL RBC (4.40-5.60) X 10*6/uL Hgb (13.0-17.0) g/dL Hct (39.6-50.0) % MCHC (32.0-37.0) g/dL RDW (11.5-14.5) % Immature Gran # (0.00-0.04) X 10*3/uL Neutrophils # (1.80-7.70) X 10*3/uL Eosinophils # (0.04-0.35) X 10*3/uL POC Glucose (mg/dL) 177 H 143 H (70-110) mg/dL Assessment and Plan Assessment: Acute hypoxic respiratory failure requiring intubation mechanical ventilation secondary to aspiration during EGD on 11/12/2023. Patient was extubated on 11/14/2023. Status post J-tube placement 11/16/2023, postoperative day #8. Acute bowel obstruction, diagnosed via CT scan, November 24, 2023. Acute aspiration pneumonia. Acute aspiration during upper endoscopy most likely secondary to gastric outlet obstruction secondary to non-Hodgkin's lymphoma. Chronic abdominal pain, secondary to lymphoma. Unexplained weight loss most likely secondary non-Hodgkin's lymphoma involving the stomach. Paroxysmal atrial fibrillation. Plan: Plan dated November 21, 2023. The patient is seen today in room 517. The patient is on 3 L of oxygen. He continues on Zosyn. Continues on tube feeds. He had a CT scan of the abdomen and pelvis. His respiratory status is improved. We will continue to follow. Prognosis is guarded. Labs, x-rays, medications are reviewed. The patient is apparently scheduled for an outpatient PET scan. Plan dated November 22, 2023. The patient appears very stable. His is in the room with him. Labs, x- rays, and medications are reviewed. The patient continues on Zosyn. Resting room air saturation was 89%. Chest CT, revealed bilateral patchy and basilar infiltrates. We will continue to follow make recommendations along the way. Prognosis is guarded. The patient was diagnosed with a gastric outlet obstruction, secondary to non-Hodgkin's lymphoma. Plan dated November 23, 2023. The patient is seen today in room 517. He is resting comfortably. He continues on saline at 10 cc an hour. He is getting tube feedings with Pivot at 20 cc an hour. He has been weaned down to 2 L of oxygen. He continues on Zosyn. Labs, x-rays, and all medications are reviewed. Prognosis is guarded. We will continue to follow. Plan dated November 24, 2023. The patient will be admitted to the intensive care unit. I believe he deserves to be an ICU patient. I did speak to the surgeon. Labs, x-rays, and medications are reviewed. No additional recommendations are made. Prognosis is guarded. The patient has now been in the hospital for 12 days. We will continue to follow. He continues on Zosyn. Time with Patient: Less than 30
[2023-11-24 13:38] LABS: ALT 31 U/L (10-49); AST 20 U/L (14-35); Albumin 3.3 g/dL (3.8-4.9); Albumin/Globulin Ratio 1.38 Ratio (1.60-3.17); Alkaline Phosphatase 52 U/L (41-126); Blood Urea Nitrogen 33.3 mg/dL (9.0-27.0); Calcium 8.3 mg/dL (8.7-10.3); Carbon Dioxide 21.5 mmol/L (21.6-31.8); Chloride 105 mmol/L (96-109); Globulin 2.4 g/dL (1.6-3.3); Glucose 161 mg/dL (70-110); Sodium 140 mmol/L (135-145); Total Bilirubin 0.5 mg/dL (0.3-1.2); Total Protein 5.7 g/dL (6.2-8.2)
[2023-11-24] MEDS: KETOROLAC 15 MG/ML 1 ML VIAL IVP PRN (15:25)
--- NOTE | 2023-11-24 15:46 | P.PN ---
Subjective Progress Note Date: 11/24/23 Interval History: This is a 73-year-old patient, follows with Dr. Patricia Deal. Patient was seen this morning in the ICU. Patient's and daughter at the bedside. History obtained predominantly by the . Patient been having trouble with his stomach symptoms for close to 8 months. Patient underwent EGD by Dr. Sahara Cheng yesterday. Patient was found to have ulcerated around the antrum and obstruction to the pylorus. A lot of retained food was found. Patient aspirated. Had to be intubated and brought to the ICU. On a Levophed drip. FiO2 50 and a PEEP of 6. Patient had been losing weight lost about 25 pounds. Previously has a history of mitral valve prolapse. November 13: ICU. Patient remains on Precedex drip and propofol drip. Did not do well attempted extubation yesterday. Patient been off Levophed. NG tube to suction. Spoke to patient's and son at the bedside. Biopsy results awaited. Hemoglobin dropped to 6.9 this morning. Get a unit of blood. November 14: ICU. Up in a chair. Extubated yesterday. NG tube to suction. at the bedside. 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 Oncology was consulted. They have ordered a port. Results discussed with Dr. Sahara Cheng. General surgery was consu lted for J-tube placement. Discussed with at the bedside. Patient getting IV fluids, IV Zosyn,. Patient has been on IV amiodarone for A-fib-back in sinus rhythm. Multiple PACs. Did receive unit of blood yesterday. Also IV ferric gluconate. November 15: ICU. Patient earlier today underwent jejunostomy tube placement and a port placement. Patient awake. Answering questions. NG tube to suction present. Updated patient's . Patient remains on IV amiodarone and IV Zosyn. November 16: ICU. Up in the chair. NG tube present but not to suction. Trickle feeding through the jejunostomy tube should be started today. Dietitian has been on board. IV Zosyn to continue. Patient's and his sister at the bedside. Discussed. Also spoke with Dr. Serna. Given patient has no other predisposing cardiac factors for the A-fib except acute illness. His LV function is normal. Left atrium is normal. He has already been loaded with IV amiodarone. Will switch him to oral Lopressor 12.5 twice daily. Hence will DC amiodarone. Patient yesterday had wheezing was put on bronchodilators steroids per pulmonary. November 17: Propped up in bed. NG tube was discontinued. Sinus rhythm. Remains NPO. Getting G-tube feeding at 40 cc an hour. Dietitian following. Get arrangements done for DC home tomorrow including tube feeding. Increase activity discussed with patient and elder daughter at the bedside. Still requiring oxygen. Incentive spirometry. November 18: Patient up in recliner. Earlier today spoke to social services assistant David. Informed patient is rather weak and will be going to the [facility]. Looking at authorization. Denae came to the room and spoke to patient his and his daughter. They are very keen to take the patient home as 3 daughters all nurses and they will take care of him at home. Patient earlier today to abdominal cramping and some loose stools.'s tube feeding was held. Told the nurse to start back at the rate of 40 cc an hour. He was before the getting it at 55 cc an hour. Incentive spirometry was again emphasized. Patient remains on 4 L of oxygen. November 19: I saw the patient this morning. Hence I am in the evening. Morning was sitting with his sons. Has some edema. Lungs had crackles I gave him 40 mg of Lasix. He did make good urine. Tube feeding was held from the previous evening of because of abdominal cramping. Acute abdominal series showed nonspecific bowel gas pattern and SBO to be ruled out. Family and patien t was updated. Told him discharge will depend on day by day. Later this afternoon CT scanAnd abdomen pelvis done. Showed small bowel to be 3 point centimeter dilated. Some anasarca. Gastric findings. Gallstones. Later spoke to Dr. Irby from general surgery. They will further review and decide about further plan of action. Will give further dose of IV Lasix because of fluid overload from likely hypoalbuminemia and IV fluids previously received. Patient may take his pills by mouth. Total time spent today about 1 hour with over 40 minutes of discussion. Patient did state his breathing is better after Lasix this morning. November 20: Saw the patient this morning. was present. Patient received 2 more doses of Lasix. Diuresed well. Breathing much better. Lungs are soundi ng better. Discussed with Dr. Zepeda other surgeon. He is taking 3 cc out of the balloon and the gastrostomy tube. Started trickle feeding at 5 cc an hour. Will see how this does. Later in the day ran into the and the daughter again. Did update them on the same. Dilaudid was discontinued yesterday but morphine was ordered by surgery for patient having pain. Concerns about GI issues with that we will DC the morphine. As family does not want the same. November 21: Patient reclining bed. Tired. Several family members at the bedside. Including his and eldest daughter. Patient started on trickle feed yesterday at 5 cc an hour. This morning he has been on [address] ill having some loose stools. C. difficile was ordered. Patient on 2 L of nasal cannula. Has diuresed well. Will give an additional dose of Lasix today. If C. difficile is negative and the diarrhea is from the tube feedings we may have to use a fecal management system to keep him comfortable. Otherwise patient remains NPO. Dietitian is following the patient. Care was discussed length with patient the and daughter at the bedside. Questions answered. Liquid Tylenol has been added for abdominal pain. Avoid narcotics. Elevated white count likely from Solu-Medrol 11/23/2023--patient was feeling better today. Multiple family member at bedside. No issues overnight. Normal saline at 10 cc an hour, tube feeding at 20 cc an hour, remains on Zosyn, on 3 L oxygen. Afebrile. Heart rate 62, respiratory rate 16, blood pressure 114/67, saturating 91% on 3 L. WBCs 14.5, 9.7 hemoglobin. Platelet 242. BMP is unremarkable. Pulmonary and general surgery following. General surgery recommended to continue tube feeds at 20 cc/h. 11/24/2023--patient reported significant abdominal discomfort, also noted to have leak around G-tube. General surgery is following, evaluated the patient at bedside, adjusted tube feeds. Also reported having diarrhea, on 2 L oxygen, went up to 5 L. Blood pressure was low, 500 mL fluid bolus with close monitoring of respiratory status ordered. Currently on DuoNebs, Solu-Medrol, will continue Zosyn. Chest x-ray showed a left lower lobe infiltrate. Abdominal x-ray showed multiple air-fluid levels. CT abdomen showed multiple dilated small bowel loops, consistent with obstruction, pneumoperitoneum, cholelithiasis and ascites. WBCs 14.1, platelet 255, hemoglobin 8.9. NG tube in place. Family at bedside. patient transferred to SICU for close monitoring. Assessment and plan: -Aspiration pneumonitis bilateral from retained gastric contents mostly food and liquids, causing acute hypoxic respiratory failure: IV Zosyn Pulmonary following -Acute pulmonary edema and fluid overload from hypoalbuminemic state and fluids from IV.: Improving Patient received a total of 3 doses of IV Lasix 40 mg.. Will give 1 more dose of IV Lasix 40 mg today -Possible small bowel obstruction. Unclear if related to jejunostomy tube. Bowel involvement with lymphoma also possible.: Jejunostomy tube balloon deflated by 3 mm-November 20. Apparently about 10 cc put initially. Trickle feeding at 10cc an hour. Being followed by surgery -Acute kidney injury. Possible ATN from hypotensive shock: Corrected Renal ultrasound unremarkable Seen by nephrology. -Nutrition Jejunostomy tube placed November [address] Ewing Tube feeding at 10 cc an hour. -Acute critical care transitional atrial fibrillation-sinus rhythm IV amiodarone. Discussed with Dr. Serna from cardiology. Stop amiodarone. Lopressor 12.5 twice daily -Acute hypoxic respiratory failure from aspiration pneumonia, status post ventilator assisted: Now 2 L nasal cannula Incentive spirometry -Normocytic anemia likely to secondary underlying lymphoma Iron deficiency anemia Received a unit of blood. IV iron. -Acute blood loss anemia, could be oozing from biopsy site in the stomach Received blood -GERD PPI -Acute diarrhea secondary to tube feeding. C. difficile ruled out. -Large superficial gastric antral ulceration involving the gastric antrum extending into the pylorus with gastric outlet obstruction. 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 Port placed. For outpatient PET scan. -Full code Tube feeding per general surgery. Being followed by surgery. PHYSICAL EXAMINATION: GENERAL: The patient is A&O x3, NAD HEENT: EOMI, Sclerae anicteric, Moist Mucous membranes Neck: Supple, Non tender, No JVD PULMONARY: Equal breath souds B/L, No wheezing, No crackles. CARDIOVASCULAR: S1, S2 present. No murmurs, rubs, or gallops. ABDOMEN: G-tube in place, tenderness. Distention. MUSCULOSKELETAL: No edema, No cyanosis. No clubbing. Normal ROM. Intact peripheral pulses. EXTREMITIES: No cyanosis, clubbing, or pedal edema. NEUROLOGICAL: CN 2-12 grossly intact. No FND Skin: No Rash REVIEW OF SYSTEMS: CONSTITUTIONAL: No fever or chills. CARDIOVASCULAR: No chest pain, palpitations or syncope. PULMONARY: No shortness of breath, no cough, sore throat. GASTROINTESTINAL: Complains of abdominal pain. : No Dysuria, urgency, frequency. Extremities: No edema. NEUROLOGICAL: No headaches, no weakness, or numbness Dictation was produced using [employer] dictation software. please excuse any grammatical, word or spelling errors. Objective - Vital Signs Vital signs: Vital Signs Temp 98.1 F 11/24/23 07:24 Pulse 113 H 11/24/23 11:46 Resp 18 11/24/23 11:46 BP 100/67 11/24/23 11:46 Pulse Ox 92 L 11/24/23 11:46 FiO2 40 11/16/23 13:09 Intake & Output 11/23/23 11/24/23 11/24/23 18:59 06:59 18:59 Intake Total 1000 Output Total 650 Balance 350 Weight 78 kg Intake: IV 1000 0.9 1000 Output: Gastric Drainage 650 Other: Voiding Method Toilet Bedside Commode # Voids 3 3 # Bowel Movements 2 - Labs CBC & Chem 7: 11/24/23 03:40 11/24/23 03:40 Labs: Abnormal Lab Results - Last 24 Hours (Table) 11/23/23 11/24/23 11/24/23 Range/Units 18:12 00:13 03:40 WBC 14.07 H (4.50-10.00) X 10*3/uL RBC 3.30 L (4.40-5.60) X 10*6/uL Hgb 8.9 L (13.0-17.0) g/dL Hct 29.5 L (39.6-50.0) % MCHC 30.2 L (32.0-37.0) g/dL RDW 18.8 H (11.5-14.5) % Immature Gran # 0.10 H (0.00-0.04) X 10*3/uL Neutrophils # 11.93 H (1.80-7.70) X 10*3/uL Eosinophils # 0 L (0.04-0.35) X 10*3/uL Carbon Dioxide (21.6-31.8) mmol/L Anion Gap (4.00-12.00) mmol/L BUN (9.0-27.0) mg/dL BUN/Creatinine Ratio (12.00-20.00) Ratio Glucose (70-110) mg/dL POC Glucose (mg/dL) 161 H 158 H (70-110) mg/dL Calcium (8.7-10.3) mg/dL Total Protein (6.2-8.2) g/dL Albumin (3.8-4.9) g/dL Albumin/Globulin Ratio (1.60-3.17) Ratio 11/24/23 11/24/23 11/24/23 Range/Units 03:40 05:15 11:50 WBC (4.50-10.00) X 10*3/uL RBC (4.40-5.60) X 10*6/uL Hgb (13.0-17.0) g/dL Hct (39.6-50.0) % MCHC (32.0-37.0) g/dL RDW (11.5-14.5) % Immature Gran # (0.00-0.04) X 10*3/uL Neutrophils # (1.80-7.70) X 10*3/uL Eosinophils # (0.04-0.35) X 10*3/uL Carbon Dioxide 21.5 L (21.6-31.8) mmol/L Anion Gap 13.50 H (4.00-12.00) mmol/L BUN 33.3 H (9.0-27.0) mg/dL BUN/Creatinine Ratio 37.00 H (12.00-20.00) Ratio Glucose 161 H (70-110) mg/dL POC Glucose (mg/dL) 177 H 143 H (70-110) mg/dL Calcium 8.3 L (8.7-10.3) mg/dL Total Protein 5.7 L (6.2-8.2) g/dL Albumin 3.3 L (3.8-4.9) g/dL Albumin/Globulin Ratio 1.38 L (1.60-3.17) Ratio
--- NOTE | 2023-11-24 17:23 | XR ---
EXAMINATION TYPE: XR chest 1V portable DATE OF EXAM: 11/24/2023 5:17 PM CLINICAL INDICATION:Male, 73 years old with history of NGT placement; [facility] COMPARISON: Chest radiographs from same day TECHNIQUE: XR chest 1V portable Frontal view of the chest. FINDINGS: Lungs/Pleura: Overall stable left lower lobe infiltrate. No pleural effusion or pneumothorax. Pulmonary vascularity: Unremarkable. Heart/mediastinum: Cardiomediastinal silhouette is unremarkable. Musculoskeletal: No acute osseous pathology. Other findings: Enteric tube can be seen coursing below the level diaphragm into the region of the st omach. Right chest port is present with distal tip in the region of the right atria. IMPRESSION: 1. Appropriately positioned enteric tube. 2. Stable positioning of right chest port. 3. Stable left lung airspace disease. [facility], , 11/24/2023 5:20 PM
[2023-11-24 17:38] LABS: Glucose,Whole Blood 145 mg/dL (70-110)
[2023-11-25 00:13] LABS: Glucose,Whole Blood 158 mg/dL (70-110)
[2023-11-25 06:13] LABS: Anisocytosis Slight; HCT 39.2 % (39.0-53.0); HGB 12.3 gm/dL (13.0-17.5); Hypochromasia Moderate; MCH 27.8 pg (25.0-35.0); MCHC 31.5 g/dL (31.0-37.0); MCV 88.3 fL (80.0-100.0); Mean Platelet Volume 9.6; Platelet Count 188 k/uL (150-450); RBC 4.44 m/uL (4.30-5.90); RDW 19.8 % (11.5-15.5); WBC 8.2 k/uL (3.8-10.6)
[2023-11-25 06:18] LABS: INR 1.3 (<1.2); Prothrombin Time 13.8 sec (10.0-12.5)
[2023-11-25 06:27] LABS: Glucose,Whole Blood 139 mg/dL (70-110)
[2023-11-25 06:30] LABS: African American GFR (CKD) 28 (>60 ml/min/1.73 sqM); Anion Gap 11 mmol/L; Blood Urea Nitrogen 57 mg/dL (9-20); Calcium 7.8 mg/dL (8.4-10.2); Carbon Dioxide 14 mmol/L (22-30); Chloride 114 mmol/L (98-107); Glucose 150 mg/dL (74-99); Non-African American GFR(CKD) 24 (>60 ml/min/1.73 sqM); Potassium 3.9 mmol/L (3.5-5.1); Sodium 139 mmol/L (137-145)
[2023-11-25 08:15] LABS: Band Neutrophils % 13 %; Lymphocytes # (M) 0.82 k/uL (1.0-4.8); Metamyelocytes # (M) 0.25 k/uL (0); Metamyelocytes % 3 %; Monocytes # (M) 0.25 k/uL (0-1.0); Myelocytes # (M) 0.08 k/uL (0); Myelocytes % 1 %; Neutrophils % (M) 72 %; Nucleated Red Blood Cells 0 /100 WBC (0-0); Total Cells Counted 200
[2023-11-25 08:16] LABS: Crenated RBC Present; Poikilocytosis (M) Present
[2023-11-25 08:17] LABS: Toxic Vacuolation Present
[2023-11-25 10:38] LABS: Magnesium 1.8 mg/dL (1.6-2.3); Phosphorus 4.4 mg/dL (2.5-4.5)
[2023-11-25] MEDS: SODIUM CHLORIDE 0.9% 1,000 ML IV ONE ×4 (10:43→13:35)
[2023-11-25] MEDS: NOREPINEPHRINE 4 MG in SODIUM CHLORIDE 0.9% 250 ML IV SCH (10:44)
[2023-11-25] MEDS: SODIUM CHLORIDE 0.9% 1,000 ML IV SCH (10:45)
--- NOTE | 2023-11-25 11:18 | P.PN ---
Subjective Progress Note Date: 11/25/23 Abdominal pain. This is a 73-year-old white male with history of chronic abdominal pain for the last 8 months has been treated with Protonix 40 mg daily for the last 3 months with no improvement. Patient had a 22 pound weight loss in the last [address] of the abdomen and pelvis 3 weeks ago showed thickening of the antral wall with pathological adenopathy posterior to the stomach suspicious of neoplasm. Today the patient underwent elective upper endoscopy to evaluate further, patient received IV sedation by anesthesia endoscope was inserted into the mouth, esophagus was intubated without any difficulty there was evidence of large amount of liquid and solid food noted in the stomach suggestive of gastric outlet obstruction. Scope could not be advanced through the pylorus, however in the prepyloric area there was a large superficial ulceration identified with multiple biopsies were done from this area. The body cardia and fundus could not adequately visualize because of large amount of retained food in the stomach. Scope was withdrawn back to the stomach and upon careful examination t he mucosa of the antrum body and cardia as well as the fundus appeared normal. Procedure was being performed and biopsies were done patient threw up and subsequently became hypoxic there was clearly evidence of witnessed aspiration anesthesia intubated the patient, procedure was terminated, and the patient was transferred to the ICU, this consult was initiated. Patient is now on assist- control rate of 20 tidal volume 500 FiO2 70% PEEP of 10 ABG is pending, earlier ABG showed profound hypoxia patient is on propofol at 50 mcg/kg/min, next ABG is pending. Chest x-ray showed chronic changes without evidence of acute pulmonary disease. Patient was seen and examined today on 11/13/2023, remains in the ICU, intubated mechanically ventilated, on assist-control rate of 20 tidal volume 500 FiO2 50% and PEEP of 10 ABG showed a pO2 of 143 pCO2 47 pH of 7.28 hence PEEP was cut down to 6, and increased rate to 22. Patient is still requiring IV fluid at 100 cc/h/LR. Requiring norepinephrine at 0.08 mcg/kg/min he is also on propofol at 50 mg/kg/min antibiotics arce patient is receiving Zosyn. Chest x-ray is showing worsening infiltrates specially in the left lung. This could be related to aspiration pneumonia. Patient had witnessed aspiration during endoscopy/upper endoscopy.WBC count is 14 hemoglobin 7.6 basic metabolic profile is normal BUN is 26 creatinine 1.57 obviously the patient sustained some acute kidney injury baseline creatinine 0.86 patient had received fluids over the last 24 hours, remains on fluids at 100 cc/h Patient with seen and examined today on 11/14/2023, patient remains in the ICU, intubated and mechanically ventilated. Failed weaning trial yesterday and he became quite agitated and desaturated once he went off propofol. Had to be placed back on assist-control mode of mechanical ventilation and sedation. Today the patient is on assist-control rate of 22 tidal volume 500 FiO2 50% PEEP of 6. ABG showed a pO2 of 123 pCO2 51 pH of 7.32, and I cut down his FiO2 down to 45%, patient is receiving a unit of packed RBCs for hemoglobin of 6.9 today. Patient had an episode of A-fib RVR at 3 AM in the morning, seen by cardiology, and recommended patient goes on amiodarone. Still requiring norepinephrine at 0.05 mg/kg/min, he is on LR at 100 cc/h propofol at 50 mg/kg/min. Remains empirically on Zosyn for aspiration pneumonia. My plan today is transitioning the patient to Precedex, hopefully discontinue propofol, and at least give the patient a decent weaning trial or at least check weaning parameters before we proceed to weaning trial. Chest x-ray continues to show evidence of pneumonia mostly in the left lung and left lower lobe more specifically. Some pulmonary vascular congestion is noted with interstitial edema, small pleural effusion is also noted/left side. WBC count today is 12 hemoglobin 6.9 basic metabolic profile is normal bicarb is 25, BUN is 25 creatinine is improving down to 1.21 from 1.57 yesterday Patient was evaluated today on 11/15/2023, patient remains in the ICU, he was extubated yesterday, and his extubation was relatively uneventful. However the patient continues to have nasogastric tube in place, his pathology report came back showing non-Hodgkin's lymphoma, patient has gastric outlet obstruction, and the recommendation by GI is to consult surgery for a jejunostomy tube which is appropriate. Patient will be seen today by oncology and he will be seen by general surgery. In the meantime patient is comfortable, he is on 5 L nasal cannula he has LR running at 100 cc/h, he is remains on Zosyn for aspiration pneumonia remains on amiodarone which was started by cardiology for atrial fibrillation with RVR, presently in sinus rhythm. Cannot switch him to oral because of the fact that remains n.p.o., patient remains on TPN. WBC count is 10.7 hemoglobin 7.5 electrolytes are normal renal profile is normal, creatinine normalized to 0.96 Patient was evaluated today on 11/16/2023, remains in the ICU, on 5 L nasal cannula remains on amiodarone at 0.5 mg/min remains on LR at 100 cc/h, however his chest x-ray is showing some component of interstitial edema or could be findings related to his recent episode of aspiration/aspiration pneumonia, nonetheless the patient seems to be a bit symptomatic, he has intermittent cough and wheezing, I am recommending Lasix 40 mg IV push, cut down his IV fluid to 50 cc/h, continue Zosyn, patient will be placed on DuoNeb updrafts and on Solu- Medrol. Patient is scheduled to have jejunostomy-tube placement today. WBC count is 13 hemoglobin 7.7 basic metabolic profile is normal and renal profile is normal Patient was evaluated today on 11/17/2023, patient underwent uneventful placement of a jejunostomy tube yesterday, in the ICU on 5 L, patient is relatively stable, not in any distress, patient continues to have nasogastric tube in place although he did have a J-tube placed yesterday. Patient was seen by oncology for his non-Hodgkin's lymphoma involving the gastric outlet. Today's x-ray showed evidence of pneumonia/bilateral interstitial infiltrate/edema patient was given a dose of Lasix, I reminded the patient had an aspiration episode which was significant. And he required intubation mechanical ventilation for a few days.WBC count today is 9.1 hemoglobin 7.9 electrolytes are normal renal profile is normal hence I plan to transfer the patient out of the ICU to a cardiac floor. And hopefully discharge planning in the next 2 days for The patient was seen today November 18, 2023 in follow-up in the intensive care unit. He is currently sitting up in bed. Awake and alert in no acute distress. He is maintaining O2 saturations in the 90s on 5 L/min per nasal cannula. Glucose 177. Remains on DuoNeb inhalations and Solu-Medrol. Antibiotics in the form of Zosyn. He has a J-tube in place. He was initiated on vital AF 1.2 at 10 mL an hour with a goal of 82 mL/h The patient is seen today November 19, 2023 in follow-up in the intensive care unit. He is a regular medical floor overflow patient. He is currently sitting up in a chair. Awake and alert in no acute distress. He is maintaining O2 saturations in the 90s on 5 L/min per nasal cannula. No IV fluids. He denies any worsening shortness of breath, cough or congestion. He is having some issues with diarrhea. He remains on Zosyn. He is receiving vital AF at 55 mL/h with a goal of 82 mL/h. Glucose 161. Solu-Medrol, DuoNeb inhalations. The patient is seen today November 20, 2023 in follow-up on the regular medical floor. He is currently up in a chair at the bedside. Awake and alert in no acute distress. Denies any worsening shortness of breath, cough or congestion. He is maintaining O2 saturation in the 90s on 3 L/min per nasal cannula. He continues on Zosyn. Continues on bronchodilators and steroids. White count 12.3. Hemoglobin 9.0. Platelets 258. Glucose 168. He is not tolerating his tube feeds as he has developed diarrhea. C. difficile screen was negative. Abdominal series revealed cardiomegaly with left basilar acute infiltrate and/or atelectasis. Overall nonspecific bowel gas pattern. A small bowel obstruction needs to be considered. Progress note dated November 21, 2023. The patient is seen in room 517. The patient is currently on 3 L of oxygen. He continues on Zosyn. His biggest complaint has been abdominal discomfort and diarrhea. He did have a CT scan of the abdomen and pelvis. Current laboratory data includes a white count of 14.4, hemoglobin 8.8, hematocrit 28.7, and platelet count 229,000. Sodium 139, potassium 4.1, chlorides 103, CO2 30, BUN 42, creatinine 0.94. Glucose is 158. Calcium is 8.5. Progress note dated November 22, 2023. 73-year-old male seen in room 517. He currently is on 2 L of oxygen. Room air saturation was 89%. Chest CT shows bilateral patchy infiltrates. He continues on Zosyn. He is still not taking anything by mouth. No new laboratory data today other than a glucose of 138. Gram stain was negative. Progress note dated November 23, 2023. 73-year-old male seen in room 517. He is resting comfortably without complaints. He continues on saline at 10 cc an hour, tube feedings with Pivot at 20 cc an hour, Zosyn, and 2 L by nasal cannula. He has had an uneventful night. Laboratory data today includes a white count 14.5, hemoglobin 9.7, hematocrit 31.4, and a platelet count of 242,000. Sodium 138, potassium 3.7, chlorides 106, CO2 26, BUN 39, creatinine 0.95. Glucose is 181. Calcium is 8.5. Sputum sampling was negative. Progress note dated November 24, 2023. 73-year-old male who is seen in room 517. The patient has been having significant abdominal discomfort, and went for a evaluation, ordered by surgery today, to determine whether or not the feeding tube, was in proper position, and whether or not there is anything acutely going on in the abdomen. He had been having diarrhea. He is on 3 L of oxygen. He has been here for 12 days. This is a patient, that had a prior EGD, aspirated, because of gastric outlet obstruction, and was diagnosis of non-Hodgkin's lymphoma. He is currently on Zosyn, DuoNebs, and Solu-Medrol. He has been NPO. Chest x-ray showed a left lower lobe infiltrate. Abdominal x-ray showed multiple air-fluid levels. CT of the abdomen showed multiple dilated small bowel loops, consistent with obstruction, pneumoperitoneum, ascites, and cholelithiasis. White count was 14.1, hemoglobin 8.9, hematocrit 29.5, and platelet count was 255,000. Glucose was 143. 73 year old male who is evaluated on 11/25/2023 in the ICU. The patient continues to have some significant abdominal discomfort and will undergo surgery today. He is currently on 4L/min saturating at 94%. He has been here for 13 days. He has been NPO. CT of abdomen/pelvis done on 11/23 showed multiple dilated small bowel loops which may be small bowel obstruction and pneumoperitonium. White count was 8.2, hemoglobin 12.3, and platelet count 188. Sodium was 139, potassium 3.9, BUN 57, creatinine 2.52. PT 13.8, INR 1.3. Objective - Vital Signs Vital signs: Vital Signs Temp 97.7 F 11/25/23 08:00 Pulse 117 H 11/25/23 08:15 Resp 34 H 11/25/23 08:15 BP 89/67 11/25/23 08:15 Pulse Ox 93 L 11/25/23 08:15 FiO2 40 11/16/23 13:09 Intake & Output 11/24/23 11/25/23 11/25/23 18:59 06:59 18:59 Intake Total 2350 1100 150 Output Total 805 1170 115 Balance 1545 -70 35 Weight 78 kg Intake: IV 2350 1000 150 0.9 2150 900 150 ACETAMINOPHEN IV (For NPO 100 ) 1,000 mg In Empty Bag 1 bag @ 400 mls/hr IVPB Q6HR [facility] Rx#:[id number] Piperacillin-Tazobactam 3 100 100 .375 gm In Sodium Chloride 0.9% 100 ml @ 25 mls/hr IVPB Q8HR [facility] Rx# :[id number] Intake, IV Titration 100 Amount ACETAMINOPHEN IV (For NPO 100 ) 1,000 mg In Empty Bag 1 bag @ 400 mls/hr IVPB Q6HR [facility] Rx#:[id number] Output: Gastric Drainage 650 1000 100 Urine 155 170 15 Other: Voiding Method Indwelling Catheter Indwelling Catheter Indwelling Catheter - Exam General: No acute distress, oriented 3. Currently on 4L/min Nasal Cannula. HEENT: Mucous membranes are moist. No oral lesions. Neck: Full range of motion. No lymphadenopathy Cardio: Regular rate, no murmurs Respiratory: reveal mild scattered rhonchi. No wheezing or crackles. Currently on 4L/min nasal cannula saturating at 94%. Abdominal: distended without bowel sounds. J-tube is noted. No drainage. Abdomen tender to palpation. Extremity: No LE edema. - Labs CBC & Chem 7: 11/25/23 05:32 11/25/23 05:32 Labs: Abnormal Lab Results - Last 24 Hours (Table) 11/24/23 11/24/23 11/24/23 Range/Units 03:40 11:50 17:36 Hgb (13.0-17.5) gm/dL RDW (11.5-15.5) % Lymphocytes # (Manual) (1.0-4.8) k/uL Metamyelocytes # (Man) (0) k/uL Myelocytes # (Manual) (0) k/uL PT (10.0-12.5) sec INR (<1.2) Chloride (98-107) mmol/L Carbon Dioxide 21.5 L (21.6-31.8) mmol/L Anion Gap 13.50 H (4.00-12.00) mmol/L BUN 33.3 H (9.0-27.0) mg/dL Creatinine (0.66-1.25) mg/dL BUN/Creatinine Ratio 37.00 H (12.00-20.00) Ratio Glucose 161 H (70-110) mg/dL POC Glucose (mg/dL) 143 H 145 H (70-110) mg/dL Calcium 8.3 L (8.7-10.3) mg/dL Total Protein 5.7 L (6.2-8.2) g/dL Albumin 3.3 L (3.8-4.9) g/dL Albumin/Globulin Ratio 1.38 L (1.60-3.17) Ratio 11/25/23 11/25/23 11/25/23 Range/Units 00:12 05:32 05:32 Hgb 12.3 L (13.0-17.5) gm/dL RDW 19.8 H (11.5-15.5) % Lymphocytes # (Manual) 0.82 L (1.0-4.8) k/uL Metamyelocytes # (Man) 0.25 H (0) k/uL Myelocytes # (Manual) 0.08 H (0) k/uL PT 13.8 H (10.0-12.5) sec INR 1.3 H (<1.2) Chloride (98-107) mmol/L Carbon Dioxide (21.6-31.8) mmol/L Anion Gap (4.00-12.00) mmol/L BUN (9.0-27.0) mg/dL Creatinine (0.66-1.25) mg/dL BUN/Creatinine Ratio (12.00-20.00) Ratio Glucose (70-110) mg/dL POC Glucose (mg/dL) 158 H (70-110) mg/dL Calcium (8.7-10.3) mg/dL Total Protein (6.2-8.2) g/dL Albumin (3.8-4.9) g/dL Albumin/Globulin Ratio (1.60-3.17) Ratio 11/25/23 11/25/23 Range/Units 05:32 06:26 Hgb (13.0-17.5) gm/dL RDW (11.5-15.5) % Lymphocytes # (Manual) (1.0-4.8) k/uL Metamyelocytes # (Man) (0) k/uL Myelocytes # (Manual) (0) k/uL PT (10.0-12.5) sec INR (<1.2) Chloride 114 H (98-107) mmol/L Carbon Dioxide 14 L (21.6-31.8) mmol/L Anion Gap (4.00-12.00) mmol/L BUN 57 H (9.0-27.0) mg/dL Creatinine 2.52 H (0.66-1.25) mg/dL BUN/Creatinine Ratio (12.00-20.00) Ratio Glucose 150 H (70-110) mg/dL POC Glucose (mg/dL) 139 H (70-110) mg/dL Calcium 7.8 L (8.7-10.3) mg/dL Total Protein (6.2-8.2) g/dL Albumin (3.8-4.9) g/dL Albumin/Globulin Ratio (1.60-3.17) Ratio Assessment and Plan Assessment: Acute hypoxic respiratory failure requiring intubation mechanical ventilation secondary to aspiration during EGD on 11/12/2023. Patient was extubated on 11/14/2023. Status post J-tube placement 11/16/2023, postoperative day #8. Acute bowel obstruction, diagnosed via CT scan, November 24, 2023. Acute aspiration pneumonia. Acute aspiration during upper endoscopy most likely secondary to gastric outlet obstruction secondary to non-Hodgkin's lymphoma. Chronic abdominal pain, secondary to lymphoma. Unexplained weight loss most likely secondary non-Hodgkin's lymphoma involving the stomach. Paroxysmal atrial fibrillation. Plan: Plan dated November 21, 2023. The patient is seen today in room 517. The patient is on 3 L of oxygen. He continues on Zosyn. Continues on tube feeds. He had a CT scan of the abdomen and pelvis. His respiratory status is improved. We will continue to follow. Prognosis is guarded. Labs, x-rays, medications are reviewed. The patient is apparently scheduled for an outpatient PET scan. Plan dated November 22, 2023. The patient appears very stable. His is in the room with him. Labs, x- rays, and medications are reviewed. The patient continues on Zosyn. Resting room air saturation was 89%. Chest CT, revealed bilateral patchy and basilar infiltrates. We will continue to follow make recommendations along the way. Prognosis is guarded. The patient was diagnosed with a gastric outlet obstru ction, secondary to non-Hodgkin's lymphoma. Plan dated November 23, 2023. The patient is seen today in room 517. He is resting comfortably. He continues on saline at 10 cc an hour. He is getting tube feedings with Pivot at 20 cc an hour. He has been weaned down to 2 L of oxygen. He continues on Zosyn. Labs, x-rays, and all medications are reviewed. Prognosis is guarded. We will continue to follow. Plan dated November 24, 2023. The patient will be admitted to the intensive care unit. I believe he deserves to be an ICU patient. I did speak to the surgeon. Labs, x-rays, and medic ations are reviewed. No additional recommendations are made. Prognosis is guarded. The patient has now been in the hospital for 12 days. We will continue to follow. He continues on Zosyn. Plan dated November 25, 2023. Discontinue toradol Start TPN nutrition. Patient will undergo surgery today. Start Norepinephrine 1L Bolus fluid Increase maintenance fluid infusion rate to 125 cc/hr. Continue Zosyn. Time with Patient: Less than 30
[2023-11-25] MEDS ORDERED: NEOSTIGMINE 1 MG/ML 10 ML VIAL ONE (11:30)
[2023-11-25] MEDS ORDERED: fentaNYL (PF) 50 MCG/ML 2 ML AMP ONE (11:30)
[2023-11-25] MEDS ORDERED: ALBUMIN HUMAN 5% (12.5gm) 250 ML BOTTLE IVPB ONE (11:30)
[2023-11-25] MEDS ORDERED: NOREPINEPHRINE 1 MG/ML 4 ML VIAL IV ONE (11:30)
[2023-11-25] MEDS ORDERED: KETAMINE HCL IN 0.9 % NACL 50 MG/5 ML SYRINGE ONE (11:30)
[2023-11-25] MEDS ORDERED: ROCURONIUM 10 MG/ML (5 ML VIAL) IV ONE (11:30)
[2023-11-25] MEDS ORDERED: PHENYLEPHRINE 10 MG/ML VIAL ONE (11:30)
[2023-11-25] MEDS ORDERED: SUCCINYLCHOLINE CHLORIDE 200 MG/10 ML VIAL IV ONE (11:30)
[2023-11-25] MEDS ORDERED: CALCIUM CHLORIDE 100 MG/ML 10 ML SYRINGE ONE (11:30)
[2023-11-25] MEDS ORDERED: GLYCOPYRROLATE 0.2 MG/ML 2 ML VIAL ONE (11:30)
[2023-11-25] MEDS ORDERED: LIDOCAINE 1% INJ 10MG/ML (20 ML MDV) ONE (11:30)
[2023-11-25] MEDS ORDERED: SODIUM BICARB 8.4% 50 ML SYR (1 MEQ/ML) ONE (11:30)
[2023-11-25] MEDS ORDERED: HYDROmorphone (PF) 1 MG/ML ONE (11:30)
[2023-11-25] MEDS ORDERED: PROPOFOL 10 MG/ML 20 ML VIAL IV ONE (11:30)
[2023-11-25] MEDS: SODIUM CHLORIDE 0.9% 500 ML 500 ML IV ONE (13:30)
[2023-11-25] MEDS: SODIUM CHLORIDE 0.9% 250 ML IV ONE (13:37)
[2023-11-25] MEDS ORDERED: VANCOMYCIN IV PER PHARMACY 1 EACH MISC MISCELLANE PRN (14:58)
--- NOTE | 2023-11-25 14:58 | P.PN ---
Subjective Progress Note Date: 11/25/23 Abdominal pain. This is a 73-year-old white male with history of chronic abdominal pain for the last 8 months has been treated with Protonix 40 mg daily for the last 3 months with no improvement. Patient had a 22 pound weight loss in the last [address] of the abdomen and pelvis 3 weeks ago showed thickening of the antral wall with pathological adenopathy posterior to the stomach suspicious of neoplasm. Today the patient underwent elective upper endoscopy to evaluate further, patient received IV sedation by anesthesia endoscope was inserted into the mouth, esophagus was intubated without any difficulty there was evidence of large amount of liquid and solid food noted in the stomach suggestive of gastric outlet obstruction. Scope could not be advanced through the pylorus, however in the prepyloric area there was a large superficial ulceration identified with multiple biopsies were done from this area. The body cardia and fundus could not adequately visualize because of large amount of retained food in the stomach. Scope was withdrawn back to the stomach and upon careful examination the mucosa of the antrum body and cardia as well as the fundus appeared normal. Procedure was being performed and biopsies were done patient threw up and subsequently became hypoxic there was clearly evidence of witnessed aspiration anesthesia intubated the patient, procedure was terminated, and the patient was transferred to the ICU, this consult was initiated. Patient is now on assist- control rate of 20 tidal volume 500 FiO2 70% PEEP of 10 ABG is pending, earlier ABG showed profound hypoxia patient is on propofol at 50 mcg/kg/min, next ABG is pending. Chest x-ray showed chronic changes without evidence of acute pulmonary disease. Patient was seen and examined today on 11/13/2023, remains in the ICU, intubated mechanically ventilated, on assist-control rate of 20 tidal volume 500 FiO2 50% and PEEP of 10 ABG showed a pO2 of 143 pCO2 47 pH of 7.28 hence PEEP was cut down to 6, and increased rate to 22. Patient is still requiring IV fluid at 100 cc/h/LR. Requiring norepinephrine at 0.08 mcg/kg/min he is also on propofol at 50 mg/kg/min antibiotics arce patient is receiving Zosyn. Chest x-ray is showing worsening infiltrates specially in the left lung. This could be related to aspiration pneumonia. Patient had witnessed aspiration during endoscopy/upper endoscopy.WBC count is 14 hemoglobin 7.6 basic metabolic profile is normal BUN is 26 creatinine 1.57 obviously the patient sustained some acute kidney injury baseline creatinine 0.86 patient had received fluids over the last 24 hours, remains on fluids at 100 cc/h Patient with seen and examined today on 11/14/2023, patient remains in the ICU, intubated and mechanically ventilated. Failed weaning trial yesterday and he became quite agitated and desaturated once he went off propofol. Had to be placed back on assist-control mode of mechanical ventilation and sedation. Today the patient is on assist-control rate of 22 tidal volume 500 FiO2 50% PEEP of 6. ABG showed a pO2 of 123 pCO2 51 pH of 7.32, and I cut down his FiO2 down to 45%, patient is receiving a unit of packed RBCs for hemoglobin of 6.9 today. Patient had an episode of A-fib RVR at 3 AM in the morning, seen by cardiology, and recommended patient goes on amiodarone. Still requiring norepinephrine at 0.05 mg/kg/min, he is on LR at 100 cc/h propofol at 50 mg/kg/min. Remains empirically on Zosyn for aspiration pneumonia. My plan today is transitioning the patient to Precedex, hopefully discontinue propofol, and at least give the patient a decent weaning trial or at least check weaning parameters before we proceed to weaning trial. Chest x-ray continues to show evidence of pneumonia mostly in the left lung and left lower lobe more specifically. Some pulmonary vascular congestion is noted with interstitial edema, small pleural effusion is also noted/left side. WBC count today is 12 hemoglobin 6.9 basic metabolic profile is normal bicarb is 25, BUN is 25 creatinine is improving down to 1.21 from 1.57 yesterday Patient was evaluated today on 11/15/2023, patient remains in the ICU, he was extubated yesterday, and his extubation was relatively uneventful. However the patient continues to have nasogastric tube in place, his pathology report came back showing non-Hodgkin's lymphoma, patient has gastric outlet obstruction, and the recommendation by GI is to consult surgery for a jejunostomy tube which is appropriate. Patient will be seen today by oncology and he will be seen by general surgery. In the meantime patient is comfortable, he is on 5 L nasal cannula he has LR running at 100 cc/h, he is remains on Zosyn for aspiration pneumonia remains on amiodarone which was started by cardiology for atrial fibrillation with RVR, presently in sinus rhythm. Cannot switch him to oral because of the fact that remains n.p.o., patient remains on TPN. WBC count is 10.7 hemoglobin 7.5 electrolytes are normal renal profile is normal, creatinine normalized to 0.96 Patient was evaluated today on 11/16/2023, remains in the ICU, on 5 L nasal cannula remains on amiodarone at 0.5 mg/min remains on LR at 100 cc/h, however his chest x-ray is showing some component of interstitial edema or could be findings related to his recent episode of aspiration/aspiration pneumonia, nonetheless the patient seems to be a bit symptomatic, he has intermittent cough and wheezing, I am recommending Lasix 40 mg IV push, cut down his IV fluid to 50 cc/h, continue Zosyn, patient will be placed on DuoNeb updrafts and on Solu- Medrol. Patient is scheduled to have jejunostomy-tube placement today. WBC count is 13 hemoglobin 7.7 basic metabolic profile is normal and renal profile is normal Patient was evaluated today on 11/17/2023, patient underwent uneventful placement of a jejunostomy tube yesterday, in the ICU on 5 L, patient is relatively stable, not in any distress, patient continues to have nasogastric tube in place although he did have a J-tube placed yesterday. Patient was seen by oncology for his non-Hodgkin's lymphoma involving the gastric outlet. Today's x-ray showed evidence of pneumonia/bilateral interstitial infiltrate/edema patient was given a dose of Lasix, I reminded the patient had an aspiration episode which was significant. And he required intubation mechanical ventilation for a few days.WBC count today is 9.1 hemoglobin 7.9 electrolytes are normal renal profile is normal hence I plan to transfer the patient out of the ICU to a cardiac floor. And hopefully discharge planning in the next 2 days for The patient was seen today November 18, 2023 in follow-up in the intensive care unit. He is currently sitting up in bed. Awake and alert in no acute distress. He is maintaining O2 saturations in the 90s on 5 L/min per nasal cannula. Glucose 177. Remains on DuoNeb inhalations and Solu-Medrol. Antibiotics in the form of Zosyn. He has a J-tube in place. He was initiated on vital AF 1.2 at 10 mL an hour with a goal of 82 mL/h The patient is seen today November 19, 2023 in follow-up in the intensive care unit. He is a regular medical floor overflow patient. He is currently sitting up in a chair. Awake and alert in no acute distress. He is maintaining O2 saturations in the 90s on 5 L/min per nasal cannula. No IV fluids. He denies any worsening shortness of breath, cough or congestion. He is having some issues with diarrhea. He remains on Zosyn. He is receiving vital AF at 55 mL/h with a goal of 82 mL/h. Glucose 161. Solu-Medrol, DuoNeb inhalations. The patient is seen today November 20, 2023 in follow-up on the regular medical floor. He is currently up in a chair at the bedside. Awake and alert in no acute distress. Denies any worsening shortness of breath, cough or congestion. He is maintaining O2 saturation in the 90s on 3 L/min per nasal cannula. He continues on Zosyn. Continues on bronchodilators and steroids. White count 12.3. Hemoglobin 9.0. Platelets 258. Glucose 168. He is not tolerating his tube feeds as he has developed diarrhea. C. difficile screen was negative. Abdominal series revealed cardiomegaly with left basilar acute infiltrate and/or atelectasis. Overall nonspecific bowel gas pattern. A small bowel obstruction needs to be considered. Progress note dated November 21, 2023. The patient is seen in room 517. The patient is currently on 3 L of oxygen. He continues on Zosyn. His biggest complaint has been abdominal discomfort and diarrhea. He did have a CT scan of the abdomen and pelvis. Current laboratory data includes a white count of 14.4, hemoglobin 8.8, hematocrit 28.7, and platelet count 229,000. Sodium 139, potassium 4.1, chlorides 103, CO2 30, BUN 42, creatinine 0.94. Glucose is 158. Calcium is 8.5. Progress note dated November 22, 2023. 73-year-old male seen in room 517. He currently is on 2 L of oxygen. Room air saturation was 89%. Chest CT shows bilateral patchy infiltrates. He continues on Zosyn. He is still not taking anything by mouth. No new laboratory data today other than a glucose of 138. Gram stain was negative. Progress note dated November 23, 2023. 73-year-old male seen in room 517. He is resting comfortably without complaints. He continues on saline at 10 cc an hour, tube feedings with Pivot at 20 cc an hour, Zosyn, and 2 L by nasal cannula. He has had an uneventful night. Laboratory data today includes a white count 14.5, hemoglobin 9.7, hematocrit 31.4, and a platelet count of 242,000. Sodium 138, potassium 3.7, chlorides 106, CO2 26, BUN 39, creatinine 0.95. Glucose is 181. Calcium is 8.5. Sputum sampling was negative. Progress note dated November 24, 2023. 73-year-old male who is seen in room 517. The patient has been having significant abdominal discomfort, and went for a evaluation, ordered by surgery today, to determine whether or not the feeding tube, was in proper position, and whether or not there is anything acutely going on in the abdomen. He had been having diarrhea. He is on 3 L of oxygen. He has been here for 12 days. This is a patient, that had a prior EGD, aspirated, because of gastric outlet obstruction, and was diagnosis of non-Hodgkin's lymphoma. He is currently on Zosyn, DuoNebs, and Solu-Medrol. He has been NPO. Chest x-ray showed a left lower lobe infiltrate. Abdominal x-ray showed multiple air-fluid levels. CT of the abdomen showed multiple dilated small bowel loops, consistent with obstruction, pneumoperitoneum, ascites, and cholelithiasis. White count was 14.1, hemoglobin 8.9, hematocrit 29.5, and platelet count was 255,000. Glucose was 143. 11/25/2023, the patient is being seen in the intensive care unit. The patient is critically ill, n.p.o., he has an NG tube in place. Following the NG tube insertion, there was a total of 2.0 L of output and the patient's J-tube was also draining approximately 200 cc over the past 8 hours. Continues to have abdominal pain which is rather diffuse and the patient has direct abdominal tenderness. CAT scan of the abdomen was noted and was consistent with small bowel obstruction. The patient has a stomach that was inflated and in the same time there were multiple loops of small bowel distended with fluid. This extended to the pelvis. J-tube with contrast nondilated small bowel loops within the mid abdomen. Additional loops of small bowel were seen that was dilated. There was some contrast in the right lower quadrant and contrast was also in the cecum. No transition point was identified. The dilated loops of the bowel appeared to be in the proximal jejunum and distal to the duodenum. General surgery is on the case the patient will be taken to the operating room for another exploratory laparotomy. Noted the CAT scan of the abdomen also showed pneumoperitoneum and small amount of ascites and cholelithiasis. Hemodynamically, the patient is currently on normal saline at rate of 75 cc an hour. He is hypotensive and is going to be started on pressors. He is on 4 L of oxygen by nasal cannula. He also has sustained acute kidney injury. Blood work from today shows a rise in the creatinine which is currently up to 2.5 with a BUN of 57. Serum bicarb is at 14 with an anion gap of 11. The patient WBC count is at 8.2 with a hemoglobin of 12.3 and a platelet count of 188. Chest x- ray from this morning is showing a right-sided port and a stable left lung airspace disease and an NG tube being in place. The patient remains on IV Zosyn. The patient is receiving Dilaudid for pain control. The patient remains on IV Solu-Medrol 60 mg every 6 hours. It was noted that the patient's surgical wound over the port has dehisced and there is some serous drainage and erythema at the incision site. Awake and alert and communicating. Family at the bedside. No apparent signs of respiratory distress at this point. Objective - Vital Signs Vital signs: Vital Signs Temp 97.7 F 11/25/23 08:00 Pulse 117 H 11/25/23 08:15 Resp 34 H 11/25/23 08:15 BP 89/67 11/25/23 08:15 Pulse Ox 93 L 11/25/23 08:15 FiO2 40 11/16/23 13:09 Intake & Output 11/24/23 11/25/23 11/25/23 18:59 06:59 18:59 Intake Total 2350 1100 150 Output Total 805 1170 115 Balance 1545 -70 35 Weight 78 kg Intake: IV 2350 1000 150 0.9 2150 900 150 ACETAMINOPHEN IV (For NPO 100 ) 1,000 mg In Empty Bag 1 bag @ 400 mls/hr IVPB Q6HR [facility] Rx#:[id number] Piperacillin-Tazobactam 3 100 100 .375 gm In Sodium Chloride 0.9% 100 ml @ 25 mls/hr IVPB Q8HR [facility] Rx# :[id number] Intake, IV Titration 100 Amount ACETAMINOPHEN IV (For NPO 100 ) 1,000 mg In Empty Bag 1 bag @ 400 mls/hr IVPB Q6HR [facility] Rx#:[id number] Output: Gastric Drainage 650 1000 100 Urine 155 170 15 Other: Voiding Method Indwelling Catheter Indwelling Catheter Indwelling Catheter - Exam No acute distress, oriented 3. Currently on 4 L nasal cannula. No respiratory distress. HEENT examination is grossly unremarkable. Mucous membranes are moist. No oral lesions. Neck supple. Full range of motion. No adenopathy thyromegaly or neck vein distention. Cardiovascular examination reveals regular rhythm rate. S1-S2 normal. No S3 or S4. No discernible murmur noted. Lungs reveal mild scattered rhonchi. No wheezes or crackles. Breath sounds equal. Abdomen distended without bowel sounds. J-tube is noted. Patient also has an NG tube in place. Abdomen is tender and the patient has diffuse abdominal tenderness. No rebound tenderness or guarding. Absent bowel sounds. Extremities are intact. No cyanosis clubbing or edema. Skin is without rash or lesion. The wound at the Mediport site is draining some serous material and there is some dehiscence of the wound itself. Neurologic examination is brief but nonfocal. - Labs CBC & Chem 7: 11/25/23 05:32 11/25/23 05:32 Labs: Abnormal Lab Results - Last 24 Hours (Table) 11/24/23 11/24/23 11/24/23 Range/Units 03:40 03:40 11:50 WBC 14.07 H (4.50-10.00) X 10*3/uL RBC 3.30 L (4.40-5.60) X 10*6/uL Hgb 8.9 L (13.0-17.0) g/dL Hct 29.5 L (39.6-50.0) % MCHC 30.2 L (32.0-37.0) g/dL RDW 18.8 H (11.5-14.5) % Immature Gran # 0.10 H (0.00-0.04) X 10*3/uL Neutrophils # 11.93 H (1.80-7.70) X 10*3/uL Lymphocytes # (Manual) (1.0-4.8) k/uL Eosinophils # 0 L (0.04-0.35) X 10*3/uL Metamyelocytes # (Man) (0) k/uL Myelocytes # (Manual) (0) k/uL PT (10.0-12.5) sec INR (<1.2) Chloride (98-107) mmol/L Carbon Dioxide 21.5 L (21.6-31.8) mmol/L Anion Gap 13.50 H (4.00-12.00) mmol/L BUN 33.3 H (9.0-27.0) mg/dL Creatinine (0.66-1.25) mg/dL BUN/Creatinine Ratio 37.00 H (12.00-20.00) Ratio Glucose 161 H (70-110) mg/dL POC Glucose (mg/dL) 143 H (70-110) mg/dL Calcium 8.3 L (8.7-10.3) mg/dL Total Protein 5.7 L (6.2-8.2) g/dL Albumin 3.3 L (3.8-4.9) g/dL Albumin/Globulin Ratio 1.38 L (1.60-3.17) Ratio 11/24/23 11/25/23 11/25/23 Range/Units 17:36 00:12 05:32 WBC (4.50-10.00) X 10*3/uL RBC (4.40-5.60) X 10*6/uL Hgb 12.3 L (13.0-17.0) g/dL Hct (39.6-50.0) % MCHC (32.0-37.0) g/dL RDW 19.8 H (11.5-14.5) % Immature Gran # (0.00-0.04) X 10*3/uL Neutrophils # (1.80-7.70) X 10*3/uL Lymphocytes # (Manual) 0.82 L (1.0-4.8) k/uL Eosinophils # (0.04-0.35) X 10*3/uL Metamyelocytes # (Man) 0.25 H (0) k/uL Myelocytes # (Manual) 0.08 H (0) k/uL PT (10.0-12.5) sec INR (<1.2) Chloride (98-107) mmol/L Carbon Dioxide (21.6-31.8) mmol/L Anion Gap (4.00-12.00) mmol/L BUN (9.0-27.0) mg/dL Creatinine (0.66-1.25) mg/dL BUN/Creatinine Ratio (12.00-20.00) Ratio Glucose (70-110) mg/dL POC Glucose (mg/dL) 145 H 158 H (70-110) mg/dL Calcium (8.7-10.3) mg/dL Total Protein (6.2-8.2) g/dL Albumin (3.8-4.9) g/dL Albumin/Globulin Ratio (1.60-3.17) Ratio 11/25/23 11/25/23 11/25/23 Range/Units 05:32 05:32 06:26 WBC (4.50-10.00) X 10*3/uL RBC (4.40-5.60) X 10*6/uL Hgb (13.0-17.0) g/dL Hct (39.6-50.0) % MCHC (32.0-37.0) g/dL RDW (11.5-14.5) % Immature Gran # (0.00-0.04) X 10*3/uL Neutrophils # (1.80-7.70) X 10*3/uL Lymphocytes # (Manual) (1.0-4.8) k/uL Eosinophils # (0.04-0.35) X 10*3/uL Metamyelocytes # (Man) (0) k/uL Myelocytes # (Manual) (0) k/uL PT 13.8 H (10.0-12.5) sec INR 1.3 H (<1.2) Chloride 114 H (98-107) mmol/L Carbon Dioxide 14 L (21.6-31.8) mmol/L Anion Gap (4.00-12.00) mmol/L BUN 57 H (9.0-27.0) mg/dL Creatinine 2.52 H (0.66-1.25) mg/dL BUN/Creatinine Ratio (12.00-20.00) Ratio Glucose 150 H (70-110) mg/dL POC Glucose (mg/dL) 139 H (70-110) mg/dL Calcium 7.8 L (8.7-10.3) mg/dL Total Protein (6.2-8.2) g/dL Albumin (3.8-4.9) g/dL Albumin/Globulin Ratio (1.60-3.17) Ratio Assessment and Plan Plan: 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 Patient also has a J-tube in place. Both of the tubes are connected to suction and the patient continues to have abdominal pain with ongoing concern of a small bowel obstruction and the patient scheduled to undergo elective nephrectomy today. Small bowel obstruction with dilated small bowel loops as evident on the CAT scan of the abdomen with secondary abdominal pain. The patient is currently NPO. Acute hypoxic respiratory failure requiring intubation mechanical ventilation secondary to aspiration during EGD on 11/12/2023. Patient was extubated on 11/14/2023. The patient is currently on 4 L of oxygen by nasal cannula. Status post J-tube placement 11/16/2023, postoperative day # 9 Acute aspiration pneumonia, currently on Zosyn. Chest x-ray shows some stable left sided airspace disease. Acute aspiration during upper endoscopy most likely secondary to gastric outlet obstruction secondary to non-Hodgkin's lymphoma. weight loss most likely secondary non-Hodgkin's lymphoma involving the stomach. Paroxysmal atrial fibrillation Hypotension, consider underlying possibility of sepsis Acute kidney injury, secondary to above Suspected wound infection at the site of the Mediport insertion Plan: Critically ill male patient who is going to be taken to the operating room for exploratory laparotomy Keep the patient on 4l of O2 nasal cannula for now Keep the patient n.p.o. Keep the NG tube to suction as well as the J-tube Increased IV fluids to 125 cc an hour and give the patient a bolus of normal saline, a total of 1 L Continue IV Zosyn Add vancomycin Monitor renal function Avoid nephrotoxic agents and discontinue the Toradol Discuss the med port wound findings with the general surgeon May need to start TPN within the next 24 to 48 hours, will wait till the patient undergoes his exploratory laparotomy today We will continue to follow. Condition is critical. Had a lengthy discussion with the family at the bedside. General surgery is on the case. Oncology on the case. Will likely require intubation and mechanical ventilation following abdominal surgery. This evaluation was done more than 30 minutes. Time with Patient: Greater than 30
--- NOTE | 2023-11-25 15:17 | P.PN ---
Subjective Progress Note Date: 11/25/23 Interval History: This is a 73-year-old patient, follows with Dr. Patricia Deal. Patient was seen this morning in the ICU. Patient's and daughter at the bedside. History obtained predominantly by the . Patient been having trouble with his stomach symptoms for close to 8 months. Patient underwent EGD by Dr. Sahara Cheng yesterday. Patient was found to have ulcerated around the antrum and obstruction to the pylorus. A lot of retained food was found. Patient aspirated. Had to be intubated and brought to the ICU. On a Levophed drip. FiO2 50 and a PEEP of 6. Patient had been losing weight lost about 25 pounds. Previously has a history of mitral valve prolapse. November 13: ICU. Patient remains on Precedex drip and propofol drip. Did not do well attempted extubation yesterday. Patient been off Levophed. NG tube to suction. Spoke to patient's and son at the bedside. Biopsy results awaited. Hemoglobin dropped to 6.9 this morning. Get a unit of blood. November 14: ICU. Up in a chair. Extubated yesterday. NG tube to suction. at the bedside. 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 Oncology was consulted. They have ordered a port. Results discussed with Dr. Sahara Cheng. General surgery was consu lted for J-tube placement. Discussed with at the bedside. Patient getting IV fluids, IV Zosyn,. Patient has been on IV amiodarone for A-fib-back in sinus rhythm. Multiple PACs. Did receive unit of blood yesterday. Also IV ferric gluconate. November 15: ICU. Patient earlier today underwent jejunostomy tube placement and a port placement. Patient awake. Answering questions. NG tube to suction present. Updated patient's . Patient remains on IV amiodarone and IV Zosyn. November 16: ICU. Up in the chair. NG tube present but not to suction. Trickle feeding through the jejunostomy tube should be started today. Dietitian has been on board. IV Zosyn to continue. Patient's and his sister at the bedside. Discussed. Also spoke with Dr. Serna. Given patient has no other predisposing cardiac factors for the A-fib except acute illness. His LV function is normal. Left atrium is normal. He has already been loaded with IV amiodarone. Will switch him to oral Lopressor 12.5 twice daily. Hence will DC amiodarone. Patient yesterday had wheezing was put on bronchodilators steroids per pulmonary. November 17: Propped up in bed. NG tube was discontinued. Sinus rhythm. Remains NPO. Getting G-tube feeding at 40 cc an hour. Dietitian following. Get arrangements done for DC home tomorrow including tube feeding. Increase activity discussed with patient and elder daughter at the bedside. Still requiring oxygen. Incentive spirometry. November 18: Patient up in recliner. Earlier today spoke to social worker assistant David. Informed patient is rather weak and will be going to the [facility]. Looking at authorization. Denae came to the room and spoke to patient his and his daughter. They are very keen to take the patient home as 3 daughters all nurses and they will take care of him at home. Patient earlier today to abdominal cramping and some loose stools.'s tube feeding was held. Told the nurse to start back at the rate of 40 cc an hour. He was before the getting it at 55 cc an hour. Incentive spirometry was again emphasized. Patient remains on 4 L of oxygen. November 19: I saw the patient this morning. Hence I am in the evening. Morning was sitting with his sons. Has some edema. Lungs had crackles I gave him 40 mg of Lasix. He did make good urine. Tube feeding was held from the previous evening of because of abdominal cramping. Acute abdominal series showed nonspecific bowel gas pattern and SBO to be ruled out. Family and patien t was updated. Told him discharge will depend on day by day. Later this afternoon CT scanAnd abdomen pelvis done. Showed small bowel to be 3 point centimeter dilated. Some anasarca. Gastric findings. Gallstones. Later spoke to Dr. Irby from general surgery. They will further review and decide about further plan of action. Will give further dose of IV Lasix because of fluid overload from likely hypoalbuminemia and IV fluids previously received. Patient may take his pills by mouth. Total time spent today about 1 hour with over 40 minutes of discussion. Patient did state his breathing is better after Lasix this morning. November 20: Saw the patient this morning. was present. Patient received 2 more doses of Lasix. Diuresed well. Breathing much better. Lungs are soundi ng better. Discussed with Dr. Zepeda other surgeon. He is taking 3 cc out of the balloon and the gastrostomy tube. Started trickle feeding at 5 cc an hour. Will see how this does. Later in the day ran into the and the daughter again. Did update them on the same. Dilaudid was discontinued yesterday but morphine was ordered by surgery for patient having pain. Concerns about GI issues with that we will DC the morphine. As family does not want the same. November 21: Patient reclining bed. Tired. Several family members at the bedside. Including his and eldest daughter. Patient started on trickle feed yesterday at 5 cc an hour. This morning he has been on [address] ill having some loose stools. C. difficile was ordered. Patient on 2 L of nasal cannula. Has diuresed well. Will give an additional dose of Lasix today. If C. difficile is negative and the diarrhea is from the tube feedings we may have to use a fecal management system to keep him comfortable. Otherwise patient remains NPO. Dietitian is following the patient. Care was discussed length with patient the and daughter at the bedside. Questions answered. Liquid Tylenol has been added for abdominal pain. Avoid narcotics. Elevated white count likely from Solu-Medrol 11/23/2023--patient was feeling better today. Multiple family member at bedside. No issues overnight. Normal saline at 10 cc an hour, tube feeding at 20 cc an hour, remains on Zosyn, on 3 L oxygen. Afebrile. Heart rate 62, respiratory rate 16, blood pressure 114/67, saturating 91% on 3 L. WBCs 14.5, 9.7 hemoglobin. Platelet 242. BMP is unremarkable. Pulmonary and general surgery following. General surgery recommended to continue tube feeds at 20 cc/h. 11/24/2023--patient reported significant abdominal discomfort, also noted to have leak around G-tube. General surgery is following, evaluated the patient at bedside, adjusted tube feeds. Also reported having diarrhea, on 2 L oxygen, went up to 5 L. Blood pressure was low, 500 mL fluid bolus with close monitoring of respiratory status ordered. Currently on DuoNebs, Solu-Medrol, will continue Zosyn. Chest x-ray showed a left lower lobe infiltrate. Abdominal x-ray showed multiple air-fluid levels. CT abdomen showed multiple dilated small bowel loops, consistent with obstruction, pneumoperitoneum, cholelithiasis and ascites. WBCs 14.1, platelet 255, hemoglobin 8.9. NG tube in place. Family at bedside. patient transferred to SICU for close monitoring. 11/25/23--patient is currently in the ICU, required Levophed overnight due to low blood pressure, low urine output with creatinine trending up. Nephrology following. Inspector Balance Truing also following. Patient remains n.p.o., NG tube in place, following NG tube insertion patient had total of 2 L output, J-tube was draining approximately 200 cc over last 8 hours, continues to have abdominal pain and abdominal tenderness. Patient on IV fluids. Currently on 4 L oxygen. WBCs 8.2, hemoglobin 12.3, platelet 188. Chest x-ray earlier today showed right sided port and a stable left lung airspace disease, NG tube in place. Patient currently on Zosyn, on IV Dilaudid for pain control, on IV Solu-Medrol. General surgery planning for OR today, started on TPN. 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 -Possible small bowel obstruction. Unclear if related to jejunostomy tube. [place] el involvement with lymphoma also possible.: Jejunostomy tube balloon deflated by 3 mm-November 20. Apparently about 10 cc put initially. Repeat CT abdomen pelvis 11/23 done due to ongoing abdominal pain and tenderness, leakage from G-tube site, concerning for SBO. Hold tube feeds, started TPN In the ICU for hypotensive shock on Levophed General Surgery following, plan for OR 923 -Aspiration pneumonitis bilateral from retained gastric contents mostly food and liquids, causing acute hypoxic respiratory failure: IV Zosyn Pulmonary following -Acute pulmonary edema and fluid overload from hypoalbuminemic state and fluids from IV.: Improving Patient received a total of 3 doses of IV Lasix 40 mg.. Will give 1 more dose of IV Lasix 40 mg today -Acute kidney injury. Possible ATN from hypotensive shock: Corrected Renal ultrasound unremarkable Seen by nephrology. -Nutrition Jejunostomy tube placed November [address] Ewing Tube feeding at 10 cc an hour. -Acute critical care transitional atrial fibrillation-sinus rhythm IV amiodarone. Discussed with Dr. Serna from cardiology. Stop amiodarone. Lopressor 12.5 twice daily -Acute hypoxic respiratory failure from aspiration pneumonia, status post ventilator assisted: Now 2 L nasal cannula Incentive spirometry -Normocytic anemia likely to secondary underlying lymphoma Iron deficiency anemia Received a unit of blood. IV iron. -Acute blood loss anemia, could be oozing from biopsy site in the stomach Received blood -GERD PPI -Acute diarrhea secondary to tube feeding. C. difficile ruled out. -Large superficial gastric antral ulceration involving the gastric antrum extending into the pylorus with gastric outlet obstruction. 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 Port placed. For outpatient PET scan. -Full code Tube feeding per general surgery. Being followed by surgery. PHYSICAL EXAMINATION: GENERAL: The patient is A&O x3, NAD HEENT: EOMI, Sclerae anicteric, Moist Mucous membranes Neck: Supple, Non tender, No JVD PULMONARY: Equal breath souds B/L, No wheezing, No crackles. CARDIOVASCULAR: S1, S2 present. No murmurs, rubs, or gallops. ABDOMEN: G-tube in place, tenderness. Distention. MUSCULOSKELETAL: No edema, No cyanosis. No clubbing. Normal ROM. Intact peripheral pulses. EXTREMITIES: No cyanosis, clubbing, or pedal edema. NEUROLOGICAL: CN 2-12 grossly intact. No FND Skin: No Rash REVIEW OF SYSTEMS: CONSTITUTIONAL: No fever or chills. CARDIOVASCULAR: No chest pain, palpitations or syncope. PULMONARY: No shortness of breath, no cough, sore throat. GASTROINTESTINAL: Complains of abdominal pain. : No Dysuria, urgency, frequency. Extremities: No edema. NEUROLOGICAL: No headaches, no weakness, or numbness Dictation was produced using [employer] dictation software. please excuse any grammatical, word or spelling errors. Objective - Vital Signs Vital signs: Vital Signs Temp 97.7 F 11/25/23 08:00 Pulse 112 H 11/25/23 15:00 Resp 0 L 11/25/23 15:00 BP 95/59 11/25/23 15:00 Pulse Ox 95 11/25/23 15:00 FiO2 100 11/25/23 14:39 Intake & Output 11/24/23 11/25/2311/24/24 18:59 06:59 18:59 Intake Total 2350 1100 3050.658 Output Total 805 1170 225 Balance 1545 -70 2825.658 Weight 78 kg Intake: IV 2350 1000 1650 0.9 2150 900 150 ACETAMINOPHEN IV (For NPO 100 ) 1,000 mg In Empty Bag 1 bag @ 400 mls/hr IVPB Q6HR [facility] Rx#:[id number] Piperacillin-Tazobactam 3 100 100 100 .375 gm In Sodium Chloride 0.9% 100 ml @ 25 mls/hr IVPB Q8HR [facility] Rx# :[id number] Intake, IV Titration 100 1400.658 Amount ACETAMINOPHEN IV (For NPO 100 ) 1,000 mg In Empty Bag 1 bag @ 400 mls/hr IVPB Q6HR [facility] Rx#:[id number] Norepinephrine 4 mg In 25.658 Sodium Chloride 0.9% 250 ml @ 0.03 MCG/KG/MIN 8. 915 mls/hr IV .Q24H [facility] Rx#:[id number] Sodium Chloride 0.9% 1, 375 000 ml @ 125 mls/hr IV . Q8H [facility] Rx#:[id number] Sodium Chloride 0.9% 1, 1000 000 ml @ 999 mls/hr IV . Q1H1M ONE Rx#:[id number] Output: Gastric Drainage 650 1000 100 Urine 155 170 100 Estimated Blood Loss 25 Other: Voiding Method Indwelling Catheter Indwelling Catheter Indwelling Catheter - Labs CBC & Chem 7: 11/25/23 05:32 11/25/23 05:32 Labs: Abnormal Lab Results - Last 24 Hours (Table) 11/24/23 11/25/23 11/25/23 Range/Units 17:36 00:12 05:32 Hgb 12.3 L (13.0-17.5) gm/dL RDW 19.8 H (11.5-15.5) % Lymphocytes # (Manual) 0.82 L (1.0-4.8) k/uL Metamyelocytes # (Man) 0.25 H (0) k/uL Myelocytes # (Manual) 0.08 H (0) k/uL PT (10.0-12.5) sec INR (<1.2) Chloride (98-107) mmol/L Carbon Dioxide (22-30) mmol/L BUN (9-20) mg/dL Creatinine (0.66-1.25) mg/dL Glucose (74-99) mg/dL POC Glucose (mg/dL) 145 H 158 H (70-110) mg/dL Calcium (8.4-10.2) mg/dL 11/25/23 11/25/23 11/25/23 Range/Units 05:32 05:32 06:26 Hgb (13.0-17.5) gm/dL RDW (11.5-15.5) % Lymphocytes # (Manual) (1.0-4.8) k/uL Metamyelocytes # (Man) (0) k/uL Myelocytes # (Manual) (0) k/uL PT 13.8 H (10.0-12.5) sec INR 1.3 H (<1.2) Chloride 114 H (98-107) mmol/L Carbon Dioxide 14 L (22-30) mmol/L BUN 57 H (9-20) mg/dL Creatinine 2.52 H (0.66-1.25) mg/dL Glucose 150 H (74-99) mg/dL POC Glucose (mg/dL) 139 H (70-110) mg/dL Calcium 7.8 L (8.4-10.2) mg/dL
[2023-11-25 15:20] LABS: ABG Base Excess -12.1 mmol/L; ABG HCO3 18 mmol/L (21-25); ABG Oxygen Saturation 96.4 % (94-97); ABG PCO2 64 mmHg (35-45); ABG PO2 118 mmHg (83-108); ABG TCO2 20 mmol/L (19-24); Allen Test Performed? Yes
[2023-11-25 15:23] LABS: ABG PH 7.06 (7.35-7.45)
--- NOTE | 2023-11-25 15:33 | XR ---
EXAMINATION TYPE: XR chest 1V portable DATE OF EXAM: 11/25/2023 COMPARISON: 11/24/2023 INDICATION: Tube placement TECHNIQUE: Single frontal view of the chest is obtained. FINDINGS: The heart size is normal. The pulmonary vasculature is normal. Right lower field atelectasis may be present. A small effusion may be present on the right. Small lef t pleural effusion may be present. Endotracheal tube tip is 3.9 cm above the josseline. Nasogastric tube tip is within the left upper quadr ant of the abdomen. Central venous catheter tip is deep within the right atrium. EKG leads overlying the chest. IMPRESSION: 1. Small bilateral pleural effusions with bibasilar infiltrates and atelectasis. 2. Lines and catheters discussed above [facility], , 11/25/2023 3:31 PM
[2023-11-25] MEDS: VANCOMYCIN 1,500 MG in SODIUM CHLORIDE 0.9% 500 ML 500 ML IVPB ONE (16:31)
[2023-11-25] MEDS: DEXTROSE 5% IN WATER 1,000 ML with SODIUM BICARB (1 MEQ/ML) 150 ML IV SCH (16:32)
[2023-11-25 16:43] LABS: ABG Base Excess -7.4 mmol/L; ABG HCO3 20 mmol/L (21-25); ABG Oxygen Saturation 96.2 % (94-97); ABG PCO2 47 mmHg (35-45); ABG PH 7.23 (7.35-7.45); ABG PO2 94 mmHg (83-108); ABG TCO2 21 mmol/L (19-24); Allen Test Performed? Yes
[2023-11-25 16:46] LABS: Anisocytosis Slight; HGB 10.7 gm/dL (13.0-17.5); Hypochromasia Marked; MCH 27.3 pg (25.0-35.0); MCHC 29.6 g/dL (31.0-37.0); MCV 92.2 fL (80.0-100.0); Macrocytosis Slight; Mean Platelet Volume 8.7; Platelet Count 219 k/uL (150-450); RBC 3.91 m/uL (4.30-5.90); RDW 19.2 % (11.5-15.5); WBC 8.4 k/uL (3.8-10.6)
[2023-11-25] MEDS: SODIUM BICARB 8.4% 50 ML SYR (1 MEQ/ML) IV STA (16:49)
[2023-11-25 17:09] LABS: ALT 20 U/L (4-49); AST 27 U/L (17-59); African American GFR (CKD) 24 (>60 ml/min/1.73 sqM); Albumin 2.3 g/dL (3.5-5.0); Alkaline Phosphatase 53 U/L (38-126); Anion Gap 11 mmol/L; Blood Urea Nitrogen 61 mg/dL (9-20); Calcium 7.2 mg/dL (8.4-10.2); Carbon Dioxide 19 mmol/L (22-30); Chloride 116 mmol/L (98-107); Glucose 153 mg/dL (74-99); Lipase 62 U/L (23-300); Non-African American GFR(CKD) 21 (>60 ml/min/1.73 sqM); Potassium 4.4 mmol/L (3.5-5.1); Sodium 146 mmol/L (137-145); Total Bilirubin 0.8 mg/dL (0.2-1.3); Total Protein 4.6 g/dL (6.3-8.2)
--- NOTE | 2023-11-25 17:47 | P.OP ---
Date of Procedure: 11/25/23 Preoperative Diagnosis: Small Bowel Obstruction Postoperative Diagnosis: 1. Perforated Small Bowel 2. Adhesive Disease Procedure(s) Performed: 1. Exploratory Laparotomy 2. Abdominal Washout 3. Small Bowel Resection 4. Witzel Feeding Jejunostomy Anesthesia: MAC Surgeon: Dick Ewing Estimated Blood Loss (ml): 25 Pathology: other (Small Bowel) Condition: critical Disposition: ICU Description of Procedure: The patient was brought to the operating suite and placed in the supine position. Endotracheal intubation was performed and anesthesia was given. The patient was prepped and draped in usual sterile fashion. A timeout was performed before starting procedure. A #10 blade was used to make a midline incision and bovie electrocautery was used to dissect through the subcutaneous fat, down to the fascia and eventually into the peritoneal cavity. Once the abdominal cavity was entered, there was a large amount of free fluid noted in the abdomen which was bilious. There was significant contamination. The abdomen was inspected and there was a perforation in the small bowel with the balloon of the previously placed jejunostomy penetrating through that perforation. The previous jejunostomy was removed. A mesenteric window was made proximal and distal to the perforation and the small bowel was divided. The mesentery was taken down with a ligasure device. An anastomosis was then fashioned between the two segments of small bowel in a side to side fashion using multiple firings of an Endo EVANS 60 mm purple staple load. The small bowel was noted to be dilated and was ran from the ligament of treitz to the cecum and there were adhesions in the right lower quadrant which were causing obstruction. The adhesions were taken down with a ligasure device. The small bowel was ran again and was free from any obstruction. An enterotomy was then made 55 cm distal to the ligament of treitz and a feeding jejunostomy was placed. The balloon was inflated to 7 cc. #2-0 Silk Sutures were used to witzel the feeding tube. The bumper of the tube was then pushed flush with the exterior abdominal wall and the small bowel was brought up snug with abdominal wall inside the peritoneal cavity. #2-0 Silk Suture was then used to tack the small bowel to the abdominal wall. The abdomen was then thoroughly irrigated with copious amount of saline. A #19 F RAYA drain was placed in the pelvis and sutured in place with #2-0 Silk. The abdomen was then again irrigated with copious amounts of saline. This patient is high risk for post operative intraabdominal abscess due to how much contamination he had. The fascia then closed in opposite directions with two looped #0 PDS suture. Skin kelly were used to approximate the skin. A sterile dressing was applied. This concluded the procedure. The patient tolerated the procedure well and was sent to the ICU in critical condition. The patient's family was updated at the conclusion of the surgery.
[2023-11-25 18:17] LABS: Glucose,Whole Blood 192 mg/dL (70-110)
[2023-11-25] MEDS: MORPHINE SULFATE 2 MG/ML SYRINGE IVP PRN (18:18)
--- NOTE | 2023-11-25 20:17 | P.PCN ---
Date of Procedure: 11/25/23 Operative Findings: Date of Procedure: 11/25/23 Preoperative Diagnosis: Septic shock Postoperative Diagnosis: Septic shock Procedure(s) Performed: Arterial line and a central line Anesthesia: local Surgeon: Oswald Love Estimated Blood Loss (ml): 0 Condition: critical Disposition: ICU Operative Findings: Indication: Hemodynamic monitoring. A time-out was completed verifying correct patient, procedure, site, positioning, and implant(s) or special equipment if applicable. The patients right wrist was prepped and draped in sterile fashion. 1% Lidocaine was used to anesthetize the area. An 18G Arrow arterial line was introduced into the right radial artery. The catheter was threaded over the guide wire and the needle was removed with appropriate pulsatile blood return. Blood loss was minimal. The catheter was then sutured in place to the skin and a sterile dressing applied. Perfusion to the extremity distal to the point of catheter insertion was checked and found to be adequate. The patient tolerated the procedure well and there were no complications. Indication: Hemodynamic monitoring/Intravenous access. A time-out was completed verifying correct patient, procedure, site, positioning, and implant(s) or special equipment if applicable. The patient was placed in a dependent position appropriate for triple lumen catheter placement based on the vein to be cannulated. The patient's left subclavian jugular area was prepped and draped in sterile fashion. 1% Lidocaine was used to anesthetize the surrounding skin area. A triple lumen 9F Cordis catheter was introduced into the left subclavian vein using Seldinger technique. The catheter was threaded smoothly over the guide wire and appropriate blood return was obtained. Each lumen of the catheter was evacuated of air and flushed with sterile saline. The catheter was then sutured in place to the skin and a sterile dressing applied. Perfusion to the extremity distal to the point of catheter insertion was checked and found to be adequate.
--- NOTE | 2023-11-25 21:06 | XR ---
EXAMINATION TYPE: XR chest 1V portable DATE OF EXAM: 11/25/2023 COMPARISON: 11/25/2023 HISTORY: Line placement TECHNIQUE: Single frontal view of the chest is obtained. FINDINGS: There is an ET tube 5.4 cm above. There is a left-sided PICC line terminating in the SVC/RA junction. The Mediport catheter tip is in t he SVC/RA junction. There is an NG tube within the stomach. There is a stable retrocardiac opacity. Small right pleural effusion is decreased in the interval. The pulmonary vasculature is not congested. No pneumothorax . IMPRESSION: 1. Left-sided PICC line terminating in the SVC/right junction. Mediport catheter tip in the SVC/RA ju nction. NG tube within the stomach. ET tube 5.4 cm above the josseline. 2. Decreasing small right pleural effusion. 3. Stable retrocardiac opacity [facility], , 11/25/2023 9:04 PM
[2023-11-25 21:11] LABS: Anisocytosis Slight; HCT 34.5 % (39.0-53.0); HGB 10.6 gm/dL (13.0-17.5); Hypochromasia Marked; MCHC 30.9 g/dL (31.0-37.0); MCV 90.8 fL (80.0-100.0); Macrocytosis Slight; Mean Platelet Volume 9.8; Platelet Count 197 k/uL (150-450); RDW 19.7 % (11.5-15.5); WBC 5.1 k/uL (3.8-10.6)
[2023-11-25 21:17] LABS: African American GFR (CKD) 26 (>60 ml/min/1.73 sqM); Anion Gap 9 mmol/L; Blood Urea Nitrogen 67 mg/dL (9-20); Calcium 6.7 mg/dL (8.4-10.2); Carbon Dioxide 20 mmol/L (22-30); Chloride 114 mmol/L (98-107); Glucose 179 mg/dL (74-99); Non-African American GFR(CKD) 22 (>60 ml/min/1.73 sqM); Sodium 143 mmol/L (137-145)
[2023-11-25 21:40] LABS: Band Neutrophils % 30 %; Lymphocytes # (M) 0.97 k/uL (1.0-4.8); Metamyelocytes # (M) 0.56 k/uL (0); Metamyelocytes % 11 %; Myelocytes # (M) 0.36 k/uL (0); Myelocytes % 7 %; Neutrophils % (M) 34 %; Nucleated Red Blood Cells 0 /100 WBC (0-0); Polychromasia Present; Total Cells Counted 200; Toxic Vacuolation Present
[2023-11-25 21:41] LABS: Large Platelets Present
[2023-11-25 21:42] LABS: Crenated RBC Present
[2023-11-25 21:43] LABS: Potassium 4.4 mmol/L (3.5-5.1)
[2023-11-25] MEDS: VASOPRESSIN 20 UNIT in SODIUM CHLORIDE 0.9% 50 ML IV SCH (21:45)
[2023-11-25] MEDS: CHLORHEXIDINE GLUCONATE 15 ML CUP MUCOUS MEM SCH (21:49)
[2023-11-25] MEDS: METOPROLOL TARTRATE 5 MG/5 ML VIAL IVP PRN (21:52)
[2023-11-26 00:12] LABS: Glucose,Whole Blood 204 mg/dL (70-110)
[2023-11-26] MEDS: MVI, ADULT NO.4 WITH VIT K 10 ML, TRACE (CONC-1ML/DOSE) 1 ML, SODIUM ACETATE 30 MEQ, PO... IV SCH ×2 (03:08→16:11)
[2023-11-26] MEDS: FAT EMULSION 20% 250 ML IV SCH (03:08)
[2023-11-26] MEDS: IPRATROPIUM-ALBUTEROL 3 ML NEB INHALATION PRN (04:04)
[2023-11-26 04:56] LABS: ABG Base Excess -1.6 mmol/L; ABG HCO3 24 mmol/L (21-25); ABG PCO2 44 mmHg (35-45); ABG PH 7.35 (7.35-7.45); ABG PO2 88 mmHg (83-108); ABG TCO2 25 mmol/L (19-24); Allen Test Performed? Yes
[2023-11-26 05:08] LABS: Anisocytosis Slight; HCT 33.1 % (39.0-53.0); HGB 9.9 gm/dL (13.0-17.5); Hypochromasia Marked; MCH 27.4 pg (25.0-35.0); MCHC 30.1 g/dL (31.0-37.0); MCV 91.2 fL (80.0-100.0); Macrocytosis Slight; Mean Platelet Volume 9.2; Platelet Count 172 k/uL (150-450); RBC 3.62 m/uL (4.30-5.90); RDW 19.2 % (11.5-15.5); WBC 5.7 k/uL (3.8-10.6)
--- NOTE | 2023-11-26 05:27 | XR ---
EXAMINATION TYPE: XR chest 1V portable DATE OF EXAM: 11/26/2023 CLINICAL HISTORY: Plate. TECHNIQUE: Single AP portable semiupright view of the chest is obtained. COMPARISON: Chest x-ray from one day earlier FINDINGS: Stable endotracheal tube. Orogastric tube identified projecting below diaphragm. Stable ri ght-sided subclavian central venous catheter. Stable left subclavian central venous catheter. Persistent bilateral lower lung increased opacities. Upper lungs are clear without pneumothorax. Card iac silhouette size is stable and within normal limits. Osseous structures are intact. IMPRESSION: Persistent small bilateral pleural effusions with bilateral lower lung infiltrates and/or atelectasis. No significant change from one day earlier. [facility], , 11/26/2023 5:25 AM
[2023-11-26 05:39] LABS: ALT 18 U/L (4-49); AST 40 U/L (17-59); African American GFR (CKD) 24 (>60 ml/min/1.73 sqM); Albumin 2.1 g/dL (3.5-5.0); Alkaline Phosphatase 56 U/L (38-126); Anion Gap 8 mmol/L; Blood Urea Nitrogen 72 mg/dL (9-20); Calcium 6.5 mg/dL (8.4-10.2); Carbon Dioxide 23 mmol/L (22-30); Chloride 112 mmol/L (98-107); Glucose 205 mg/dL (74-99); Magnesium 1.6 mg/dL (1.6-2.3); Non-African American GFR(CKD) 21 (>60 ml/min/1.73 sqM); Phosphorus 4.4 mg/dL (2.5-4.5); Potassium 4.2 mmol/L (3.5-5.1); Sodium 143 mmol/L (137-145); Total Bilirubin 0.8 mg/dL (0.2-1.3); Total Protein 4.3 g/dL (6.3-8.2)
[2023-11-26 06:03] LABS: Ionized Calcium 3.8 mg/dL (4.5-5.3)
[2023-11-26 08:00] LABS: Glucose,Whole Blood 271 mg/dL (70-110)
[2023-11-26] MEDS: MAGNESIUM SULFATE-D5W PMX 1 GM in DEXTROSE/WATER 1 100ML.BAG IVPB SCH (08:37)
[2023-11-26 08:40] LABS: Band Neutrophils % 11 %; Lymphocytes # (M) 0.34 k/uL (1.0-4.8); Metamyelocytes # (M) 0.23 k/uL (0); Metamyelocytes % 4 %; Monocytes # (M) 0.46 k/uL (0-1.0); Myelocytes # (M) 0.06 k/uL (0); Myelocytes % 1 %; Neutrophils % (M) 71 %; Nucleated Red Blood Cells 0 /100 WBC (0-0); Poikilocytosis (M) Present; Total Cells Counted 200; Toxic Vacuolation Present
[2023-11-26 08:41] LABS: Crenated RBC Present
[2023-11-26] MEDS: NOREPINEPHRINE 32 MG in SODIUM CHLORIDE 0.9% 218 ML IV SCH (08:50)
[2023-11-26] MEDS: VANCOMYCIN 1,500 MG in SODIUM CHLORIDE 0.9% 500 ML 500 ML IVPB ONE (09:14)
[2023-11-26] MEDS: SODIUM CHLORIDE 0.9% 1,000 ML IV SCH (09:24)
--- NOTE | 2023-11-26 10:08 | P.PN ---
Subjective Patient is seen in follow-up for acute kidney injury. Patient underwent exploratory laparotomy with small bowel obstruction NG tube replacement yes terday. Patient became quite hypotensive and is currently on Levophed and vasopressin. He is receiving IV fluids. Patient is intubated. Vital signs unstable -patient in A-fib and hypotensive on vasopressor support. General: Resting in bed. HEENT: Intubated. LUNGS: Scattered rhonchi. HEART: Irregular rate and rhythm. ABDOMEN: Abdominal dressing noted. No drainage. EXTREMITITES: No edema. Objective - Vital Signs Vital signs: Vital Signs Temp 98.5 F 11/26/23 08:00 Pulse 122 H 11/26/23 08:58 Resp 28 H 11/26/23 08:00 BP 129/76 11/26/23 08:00 Pulse Ox 93 L 11/26/23 08:00 FiO2 60 11/26/23 08:00 Intake & Output 11/25/23 11/26/23 11/26/23 18:59 06:59 18:59 Intake Total 4393.623 2754.250 360.072 Output Total 1790 390 325 Balance 2603.623 2364.250 35.072 Weight 78 kg 90.2 kg Intake: IV 1750 1750 300 0.9 150 Dextrose 5% in Water 1, 1650 300 000 ml @ 150 mls/hr IV . Q7H40M NIRMAL with Sodium Bicarb (1 Meq/ml) 150 ml Rx#:[id number] Piperacillin-Tazobactam 3 200 100 .375 gm In Sodium Chloride 0.9% 100 ml @ 25 mls/hr IVPB Q8HR NIRMAL Rx# :[id number] Intake, IV Titration 2643.623 1004.250 60.072 Amount Dextrose 5% in Water 1, 600 000 ml @ 150 mls/hr IV . Q7H40M NIRMAL with Sodium Bicarb (1 Meq/ml) 150 ml Rx#:[id number] Norepinephrine 32 mg In 0.402 Sodium Chloride 0.9% 218 ml @ 0.03 MCG/KG/MIN 1. 097 mls/hr IV .Q24H NIRMAL Rx#:[id number] Norepinephrine 4 mg In 138.983 866.943 Sodium Chloride 0.9% 250 ml @ 0.03 MCG/KG/MIN 8. 915 mls/hr IV .Q24H NIRMAL Rx#:[id number] Sodium Chloride 0.9% 1, 375 000 ml @ 125 mls/hr IV . Q8H NIRMAL Rx#:[id number] Sodium Chloride 0.9% 1, 1000 000 ml @ 999 mls/hr IV . Q1H1M ONE Rx#:[id number] Vancomycin 1,500 mg In 500 Sodium Chloride 0.9% 500 ml 500 ml @ 167 mls/hr IVPB ONCE ONE Rx#: [id number] Vasopressin 20 unit In 30.447 Sodium Chloride 0.9% 50 ml @ 0.03 UNITS/MIN 4.59 mls/hr IV .Q11H7M NIRMAL Rx# :[id number] propofoL 1,000 mg In 29.64 106.86 59.67 Empty Bag 1 bag @ 20 MCG/ KG/MIN 9.36 mls/hr IV . [id number] NIRMAL Rx#:[id number] Output: Gastric Drainage 1600 250 Drainage 150 Right Abdomen 150 Urine 165 240 75 Estimated Blood Loss 25 Other: Voiding Method Indwelling Catheter Indwelling Catheter Indwelling Catheter # Bowel Movements 1 ABP, PAP, CO, CI - Last Documented Arterial Blood Pressure 101/53 - Labs CBC & Chem 7: 11/26/23 04:22 11/26/23 04:22 Labs: Abnormal Lab Results - Last 24 Hours (Table) 11/25/23 11/25/23 11/25/23 Range/Units 15:18 16:34 16:34 RBC 3.91 L (4.30-5.90) m/uL Hgb 10.7 L (13.0-17.5) gm/dL Hct 36.0 L (39.0-53.0) % MCHC 29.6 L (31.0-37.0) g/dL RDW 19.2 H (11.5-15.5) % Lymphocytes # (Manual) (1.0-4.8) k/uL Metamyelocytes # (Man) (0) k/uL Myelocytes # (Manual) (0) k/uL ABG pH 7.06 L* (7.35-7.45) ABG pCO2 64 H (35-45) mmHg ABG pO2 118 H (83-108) mmHg ABG HCO3 18 L (21-25) mmol/L ABG Total CO2 (19-24) mmol/L Hemoglobin 11.0 L (13.0-17.5) gm/dL Sodium 146 H (137-145) mmol/L Chloride 116 H (98-107) mmol/L Carbon Dioxide 19 L (22-30) mmol/L BUN 61 H (9-20) mg/dL Creatinine 2.89 H (0.66-1.25) mg/dL Glucose 153 H (74-99) mg/dL POC Glucose (mg/dL) (70-110) mg/dL Plasma Lactic Acid Hector (0.7-2.0) mmol/L Calcium 7.2 L (8.4-10.2) mg/dL Ionized Calcium Krystal (4.5-5.3) mg/dL Total Protein 4.6 L (6.3-8.2) g/dL Albumin 2.3 L (3.5-5.0) g/dL 11/25/23 11/25/23 11/25/23 Range/Units 16:34 16:40 18:15 RBC (4.30-5.90) m/uL Hgb (13.0-17.5) gm/dL Hct (39.0-53.0) % MCHC (31.0-37.0) g/dL RDW (11.5-15.5) % Lymphocytes # (Manual) (1.0-4.8) k/uL Metamyelocytes # (Man) (0) k/uL Myelocytes # (Manual) (0) k/uL ABG pH 7.23 L (7.35-7.45) ABG pCO2 47 H (35-45) mmHg ABG pO2 (83-108) mmHg ABG HCO3 20 L (21-25) mmol/L ABG Total CO2 (19-24) mmol/L Hemoglobin 10.5 L (13.0-17.5) gm/dL Sodium (137-145) mmol/L Chloride (98-107) mmol/L Carbon Dioxide (22-30) mmol/L BUN (9-20) mg/dL Creatinine (0.66-1.25) mg/dL Glucose (74-99) mg/dL POC Glucose (mg/dL) 192 H (70-110) mg/dL Plasma Lactic Acid Hector 3.2 H* (0.7-2.0) mmol/L Calcium (8.4-10.2) mg/dL Ionized Calcium Krystal (4.5-5.3) mg/dL Total Protein (6.3-8.2) g/dL Albumin (3.5-5.0) g/dL 11/25/23 11/25/23 11/25/23 Range/Units 20:18 20:27 20:27 RBC 3.80 L (4.30-5.90) m/uL Hgb 10.6 L (13.0-17.5) gm/dL Hct 34.5 L (39.0-53.0) % MCHC 30.9 L (31.0-37.0) g/dL RDW 19.7 H (11.5-15.5) % Lymphocytes # (Manual) 0.97 L (1.0-4.8) k/uL Metamyelocytes # (Man) 0.56 H (0) k/uL Myelocytes # (Manual) 0.36 H (0) k/uL ABG pH (7.35-7.45) ABG pCO2 (35-45) mmHg ABG pO2 (83-108) mmHg ABG HCO3 (21-25) mmol/L ABG Total CO2 (19-24) mmol/L Hemoglobin (13.0-17.5) gm/dL Sodium (137-145) mmol/L Chloride 114 H (98-107) mmol/L Carbon Dioxide 20 L (22-30) mmol/L BUN 67 H (9-20) mg/dL Creatinine 2.71 H (0.66-1.25) mg/dL Glucose 179 H (74-99) mg/dL POC Glucose (mg/dL) (70-110) mg/dL Plasma Lactic Acid Hector 3.7 H* (0.7-2.0) mmol/L Calcium 6.7 L (8.4-10.2) mg/dL Ionized Calcium Krystal (4.5-5.3) mg/dL Total Protein (6.3-8.2) g/dL Albumin (3.5-5.0) g/dL 11/26/23 11/26/23 11/26/23 Range/Units 00:07 00:10 04:22 RBC (4.30-5.90) m/uL Hgb (13.0-17.5) gm/dL Hct (39.0-53.0) % MCHC (31.0-37.0) g/dL RDW (11.5-15.5) % Lymphocytes # (Manual) (1.0-4.8) k/uL Metamyelocytes # (Man) (0) k/uL Myelocytes # (Manual) (0) k/uL ABG pH (7.35-7.45) ABG pCO2 (35-45) mmHg ABG pO2 (83-108) mmHg ABG HCO3 (21-25) mmol/L ABG Total CO2 (19-24) mmol/L Hemoglobin (13.0-17.5) gm/dL Sodium (137-145) mmol/L Chloride 112 H (98-107) mmol/L Carbon Dioxide (22-30) mmol/L BUN 72 H (9-20) mg/dL Creatinine 2.85 H (0.66-1.25) mg/dL Glucose 205 H (74-99) mg/dL POC Glucose (mg/dL) 204 H (70-110) mg/dL Plasma Lactic Acid Hector 2.9 H* (0.7-2.0) mmol/L Calcium 6.5 L (8.4-10.2) mg/dL Ionized Calcium Krystal 3.8 L (4.5-5.3) mg/dL Total Protein 4.3 L (6.3-8.2) g/dL Albumin 2.1 L (3.5-5.0) g/dL 11/26/23 11/26/23 11/26/23 Range/Units 04:22 04:52 07:58 RBC 3.62 L (4.30-5.90) m/uL Hgb 9.9 L (13.0-17.5) gm/dL Hct 33.1 L (39.0-53.0) % MCHC 30.1 L (31.0-37.0) g/dL RDW 19.2 H (11.5-15.5) % Lymphocytes # (Manual) 0.34 L (1.0-4.8) k/uL Metamyelocytes # (Man) 0.23 H (0) k/uL Myelocytes # (Manual) 0.06 H (0) k/uL ABG pH (7.35-7.45) ABG pCO2 (35-45) mmHg ABG pO2 (83-108) mmHg ABG HCO3 (21-25) mmol/L ABG Total CO2 25 H (19-24) mmol/L Hemoglobin 10.3 L (13.0-17.5) gm/dL Sodium (137-145) mmol/L Chloride (98-107) mmol/L Carbon Dioxide (22-30) mmol/L BUN (9-20) mg/dL Creatinine (0.66-1.25) mg/dL Glucose (74-99) mg/dL POC Glucose (mg/dL) 271 H (70-110) mg/dL Plasma Lactic Acid Hector (0.7-2.0) mmol/L Calcium (8.4-10.2) mg/dL Ionized Calcium Krystal (4.5-5.3) mg/dL Total Protein (6.3-8.2) g/dL Albumin (3.5-5.0) g/dL Assessment and Plan Plan: Assessment: 1. Acute kidney injury secondary to ATN secondary to septic shock. Creatinine 0.86 on admission and is 2.85 today. Urine output 15 to 30 cc an hour. UA fairly benign. No hydronephrosis noted on imaging. 2. Perforated small bowel status post exploratory laparotomy with abdominal washout, small bowel resection and J-tube replacement November 25, 2023. 3. A-fib with RVR. 4. Recently diagnosed gastric B-cell lymphoma. 5. Septic shock. Likely abdominal source. On vasopressors and IV antibiotics. Plan: Maintain IV fluids. Avoid nephrotoxins. Continue to monitor renal function and urine output. Preserved EF noted on echocardiogram. Continue to assess daily for need for renal replacement therapy. Wean FiO2 and vasopressors.
[2023-11-26] MEDS: SODIUM CHLORIDE 0.9% 1,000 ML IV ONE (11:13)
[2023-11-26] MEDS ORDERED: MVI, ADULT NO.4 WITH VIT K 10 ML, TRACE (CONC-1ML/DOSE) 1 ML, SODIUM ACETATE 40 MEQ, PO... IV SCH (12:00)
[2023-11-26 12:07] LABS: Glucose,Whole Blood 208 mg/dL (70-110)
--- NOTE | 2023-11-26 13:00 | P.PN ---
Subjective Progress Note Date: 11/26/23 Abdominal pain. This is a 73-year-old white male with history of chronic abdominal pain for the last 8 months has been treated with Protonix 40 mg daily for the last 3 months with no improvement. Patient had a 22 pound weight loss in the last [address] of the abdomen and pelvis 3 weeks ago showed thickening of the antral wall with pathological adenopathy posterior to the stomach suspicious of neoplasm. Today the patient underwent elective upper endoscopy to evaluate further, patient received IV sedation by anesthesia endoscope was inserted into the mouth, esophagus was intubated without any difficulty there was evidence of large amount of liquid and solid food noted in the stomach suggestive of gastric outlet obstruction. Scope could not be advanced through the pylorus, however in the prepyloric area there was a large superficial ulceration identified with multiple biopsies were done from this area. The body cardia and fundus could not adequately visualize because of large amount of retained food in the stomach. Scope was withdrawn back to the stomach and upon careful examination the mucosa of the antrum body and cardia as well as the fundus appeared normal. Procedure was being performed and biopsies were done patient threw up and subsequently became hypoxic there was clearly evidence of witnessed aspiration anesthesia intubated the patient, procedure was terminated, and the patient was transferred to the ICU, this consult was initiated. Patient is now on assist- control rate of 20 tidal volume 500 FiO2 70% PEEP of 10 ABG is pending, earlier ABG showed profound hypoxia patient is on propofol at 50 mcg/kg/min, next ABG is pending. Chest x-ray showed chronic changes without evidence of acute pulmonary disease. Patient was seen and examined today on 11/13/2023, remains in the ICU, intubated mechanically ventilated, on assist-control rate of 20 tidal volume 500 FiO2 50% and PEEP of 10 ABG showed a pO2 of 143 pCO2 47 pH of 7.28 hence PEEP was cut down to 6, and increased rate to 22. Patient is still requiring IV fluid at 100 cc/h/LR. Requiring norepinephrine at 0.08 mcg/kg/min he is also on propofol at 50 mg/kg/min antibiotics arce patient is receiving Zosyn. Chest x-ray is showing worsening infiltrates specially in the left lung. This could be related to aspiration pneumonia. Patient had witnessed aspiration during endoscopy/upper endoscopy.WBC count is 14 hemoglobin 7.6 basic metabolic profile is normal BUN is 26 creatinine 1.57 obviously the patient sustained some acute kidney injury baseline creatinine 0.86 patient had received fluids over the last 24 hours, remains on fluids at 100 cc/h Patient with seen and examined today on 11/14/2023, patient remains in the ICU, intubated and mechanically ventilated. Failed weaning trial yesterday and he became quite agitated and desaturated once he went off propofol. Had to be placed back on assist-control mode of mechanical ventilation and sedation. Today the patient is on assist-control rate of 22 tidal volume 500 FiO2 50% PEEP of 6. ABG showed a pO2 of 123 pCO2 51 pH of 7.32, and I cut down his FiO2 down to 45%, patient is receiving a unit of packed RBCs for hemoglobin of 6.9 today. Patient had an episode of A-fib RVR at 3 AM in the morning, seen by cardiology, and recommended patient goes on amiodarone. Still requiring norepinephrine at 0.05 mg/kg/min, he is on LR at 100 cc/h propofol at 50 mg/kg/min. Remains empirically on Zosyn for aspiration pneumonia. My plan today is transitioning the patient to Precedex, hopefully discontinue propofol, and at least give the patient a decent weaning trial or at least check weaning parameters before we proceed to weaning trial. Chest x-ray continues to show evidence of pneumonia mostly in the left lung and left lower lobe more specifically. Some pulmonary vascular congestion is noted with interstitial edema, small pleural effusion is also noted/left side. WBC count today is 12 hemoglobin 6.9 basic metabolic profile is normal bicarb is 25, BUN is 25 creatinine is improving down to 1.21 from 1.57 yesterday Patient was evaluated today on 11/15/2023, patient remains in the ICU, he was extubated yesterday, and his extubation was relatively uneventful. However the patient continues to have nasogastric tube in place, his pathology report came back showing non-Hodgkin's lymphoma, patient has gastric outlet obstruction, and the recommendation by GI is to consult surgery for a jejunostomy tube which is appropriate. Patient will be seen today by oncology and he will be seen by general surgery. In the meantime patient is comfortable, he is on 5 L nasal cannula he has LR running at 100 cc/h, he is remains on Zosyn for aspiration pneumonia remains on amiodarone which was started by cardiology for atrial fibrillation with RVR, presently in sinus rhythm. Cannot switch him to oral because of the fact that remains n.p.o., patient remains on TPN. WBC count is 10.7 hemoglobin 7.5 electrolytes are normal renal profile is normal, creatinine normalized to 0.96 Patient was evaluated today on 11/16/2023, remains in the ICU, on 5 L nasal cannula remains on amiodarone at 0.5 mg/min remains on LR at 100 cc/h, however his chest x-ray is showing some component of interstitial edema or could be findings related to his recent episode of aspiration/aspiration pneumonia, nonetheless the patient seems to be a bit symptomatic, he has intermittent cough and wheezing, I am recommending Lasix 40 mg IV push, cut down his IV fluid to 50 cc/h, continue Zosyn, patient will be placed on DuoNeb updrafts and on Solu- Medrol. Patient is scheduled to have jejunostomy-tube placement today. WBC count is 13 hemoglobin 7.7 basic metabolic profile is normal and renal profile is normal Patient was evaluated today on 11/17/2023, patient underwent uneventful placement of a jejunostomy tube yesterday, in the ICU on 5 L, patient is relatively stable, not in any distress, patient continues to have nasogastric tube in place although he did have a J-tube placed yesterday. Patient was seen by oncology for his non-Hodgkin's lymphoma involving the gastric outlet. Today's x-ray showed evidence of pneumonia/bilateral interstitial infiltrate/edema patient was given a dose of Lasix, I reminded the patient had an aspiration episode which was significant. And he required intubation mechanical ventilation for a few days.WBC count today is 9.1 hemoglobin 7.9 electrolytes are normal renal profile is normal hence I plan to transfer the patient out of the ICU to a cardiac floor. And hopefully discharge planning in the next 2 days for The patient was seen today November 18, 2023 in follow-up in the intensive care unit. He is currently sitting up in bed. Awake and alert in no acute distress. He is maintaining O2 saturations in the 90s on 5 L/min per nasal cannula. Glucose 177. Remains on DuoNeb inhalations and Solu-Medrol. Antibiotics in the form of Zosyn. He has a J-tube in place. He was initiated on vital AF 1.2 at 10 mL an hour with a goal of 82 mL/h The patient is seen today November 19, 2023 in follow-up in the intensive care unit. He is a regular medical floor overflow patient. He is currently sitting up in a chair. Awake and alert in no acute distress. He is maintaining O2 saturations in the 90s on 5 L/min per nasal cannula. No IV fluids. He denies any worsening shortness of breath, cough or congestion. He is having some issues with diarrhea. He remains on Zosyn. He is receiving vital AF at 55 mL/h with a goal of 82 mL/h. Glucose 161. Solu-Medrol, DuoNeb inhalations. The patient is seen today November 20, 2023 in follow-up on the regular medical floor. He is currently up in a chair at the bedside. Awake and alert in no acute distress. Denies any worsening shortness of breath, cough or congestion. He is maintaining O2 saturation in the 90s on 3 L/min per nasal cannula. He continues on Zosyn. Continues on bronchodilators and steroids. White count 12.3. Hemoglobin 9.0. Platelets 258. Glucose 168. He is not tolerating his tube feeds as he has developed diarrhea. C. difficile screen was negative. Abdominal series revealed cardiomegaly with left basilar acute infiltrate and/or atelectasis. Overall nonspecific bowel gas pattern. A small bowel obstruction needs to be considered. Progress note dated November 21, 2023. The patient is seen in room 517. The patient is currently on 3 L of oxygen. He continues on Zosyn. His biggest complaint has been abdominal discomfort and diarrhea. He did have a CT scan of the abdomen and pelvis. Current laboratory data includes a white count of 14.4, hemoglobin 8.8, hematocrit 28.7, and platelet count 229,000. Sodium 139, potassium 4.1, chlorides 103, CO2 30, BUN 42, creatinine 0.94. Glucose is 158. Calcium is 8.5. Progress note dated November 22, 2023. 73-year-old male seen in room 517. He currently is on 2 L of oxygen. Room air saturation was 89%. Chest CT shows bilateral patchy infiltrates. He continues on Zosyn. He is still not taking anything by mouth. No new laboratory data today other than a glucose of 138. Gram stain was negative. Progress note dated November 23, 2023. 73-year-old male seen in room 517. He is resting comfortably without complaints. He continues on saline at 10 cc an hour, tube feedings with Pivot at 20 cc an hour, Zosyn, and 2 L by nasal cannula. He has had an uneventful night. Laboratory data today includes a white count 14.5, hemoglobin 9.7, hematocrit 31.4, and a platelet count of 242,000. Sodium 138, potassium 3.7, chlorides 106, CO2 26, BUN 39, creatinine 0.95. Glucose is 181. Calcium is 8.5. Sputum sampling was negative. Progress note dated November 24, 2023. 73-year-old male who is seen in room 517. The patient has been having significant abdominal discomfort, and went for a evaluation, ordered by surgery today, to determine whether or not the feeding tube, was in proper position, and whether or not there is anything acutely going on in the abdomen. He had been having diarrhea. He is on 3 L of oxygen. He has been here for 12 days. This is a patient, that had a prior EGD, aspirated, because of gastric outlet obstruction, and was diagnosis of non-Hodgkin's lymphoma. He is currently on Zosyn, DuoNebs, and Solu-Medrol. He has been NPO. Chest x-ray showed a left lower lobe infiltrate. Abdominal x-ray showed multiple air-fluid levels. CT of the abdomen showed multiple dilated small bowel loops, consistent with obstruction, pneumoperitoneum, ascites, and cholelithiasis. White count was 14.1, hemoglobin 8.9, hematocrit 29.5, and platelet count was 255,000. Glucose was 143. 11/25/2023, the patient is being seen in the intensive care unit. The patient is critically ill, n.p.o., he has an NG tube in place. Following the NG tube insertion, there was a total of 2.0 L of output and the patient's J-tube was also draining approximately 200 cc over the past 8 hours. Continues to have abdominal pain which is rather diffuse and the patient has direct abdominal tenderness. CAT scan of the abdomen was noted and was consistent with small bowel obstruction. The patient has a stomach that was inflated and in the same time there were multiple loops of small bowel distended with fluid. This extended to the pelvis. J-tube with contrast nondilated small bowel loops within the mid abdomen. Additional loops of small bowel were seen that was dilated. There was some contrast in the right lower quadrant and contrast was also in the cecum. No transition point was identified. The dilated loops of the bowel appeared to be in the proximal jejunum and distal to the duodenum. General surgery is on the case the patient will be taken to the operating room for another exploratory laparotomy. Noted the CAT scan of the abdomen also showed pneumoperitoneum and small amount of ascites and cholelithiasis. Hemodynamically, the patient is currently on normal saline at rate of 75 cc an hour. He is hypotensive and is going to be started on pressors. He is on 4 L of oxygen by nasal cannula. He also has sustained acute kidney injury. Blood work from today shows a rise in the creatinine which is currently up to 2.5 with a BUN of 57. Serum bicarb is at 14 with an anion gap of 11. The patient WBC count is at 8.2 with a hemoglobin of 12.3 and a platelet count of 188. Chest x- ray from this morning is showing a right-sided port and a stable left lung airspace disease and an NG tube being in place. The patient remains on IV Zosyn. The patient is receiving Dilaudid for pain control. The patient remains on IV Solu-Medrol 60 mg every 6 hours. It was noted that the patient's surgical wound over the port has dehisced and there is some serous drainage and erythema at the incision site. Awake and alert and communicating. Family at the bedside. No apparent signs of respiratory distress at this point. 11/26/2023, the patient is being seen in follow-up. Events from yesterday was noted and the patient was taken to the operating room for exploratory laparotomy. The patient was found to have large amount of free fluid noted in the abdomen and there was significant contamination. There was perforation of the small bowel with the balloon of the previously inserted jejunostomy tube penetrating through the perforation. As such, the tube was removed, abdominal washout was done. Small bowel resection was done and the patient had a nodular jejunostomy tube inserted. Postop, the patient was extubated he was unable to tolerate extubation and the patient was kept intubated on mechanical ventilator and he was brought back to the intensive care unit. He is currently postop day #1 following his small bowel resection. Abdominal surgical wound site is dry clean and intact. This morning, the patient remains sedated on propofol which is currently running at 35 mcg/kg/min. He is on assist-control mode of mechanical ventilation at rate of 28, tidal volume of 550, FiO2 of 60% with a PEEP of 5. Blood gas from today shows a pH of 7.35 with a pCO2 44 and pO2 of 88. Chest x-ray shows adequate positioning of the orotracheal tube. The patient has a Mediport on the right and a subclavian triple-lumen catheter on the left and the patient has persistent bilateral pleural effusion and infiltrates in lung base bilaterally. Hemodynamically, the patient remains in shock. He has been on high-dose norepinephrine which is currently running at 0.28 mcg/kg/min and the patient is also on vasopressin at 0.03 units an hour. He is IV fluids are in the form of bicarb infusion running at rate of 150 cc an hour. He is in sinus tachycardia. NG tube output has been 250 cc over the past 8 hours and the output from the J-tube is minimal at this point in time. Urine output is quite diminished as the patient has also sustained acute kidney injury. Overall fluid balance is +4.9 L over the past 24 hours. The patient's white cell count of 5.7 with a hemoglobin 9.9 and platelet count of 172. BUN is 72 with a creatinine of 2.8 and sodium levels at 143. The calcium level is at 6.5. LFTs are normal. Triglyceride level is at 315. Objective - Vital Signs Vital signs: Vital Signs Temp 98.5 F 11/26/23 08:00 Pulse 122 H 11/26/23 08:46 Resp 28 H 11/26/23 08:00 BP 129/76 11/26/23 08:00 Pulse Ox 93 L 11/26/23 08:00 FiO2 60 11/26/23 08:00 Intake & Output 11/25/23 11/26/23 11/26/23 18:59 06:59 18:59 Intake Total 4393.623 2754.250 359.67 Output Total 1790 390 325 Balance 2603.623 2364.250 34.67 Weight 78 kg 90.2 kg Intake: IV 1750 1750 300 0.9 150 Dextrose 5% in Water 1, 1650 300 000 ml @ 150 mls/hr IV . Q7H40M [facility] with Sodium Bicarb (1 Meq/ml) 150 ml Rx#:[id number] Piperacillin-Tazobactam 3 200 100 .375 gm In Sodium Chloride 0.9% 100 ml @ 25 mls/hr IVPB Q8HR [facility] Rx# :[id number] Intake, IV Titration 2643.623 1004.250 59.67 Amount Dextrose 5% in Water 1, 600 000 ml @ 150 mls/hr IV . Q7H40M [facility]MAL with Sodium Bicarb (1 Meq/ml) 150 ml Rx#:[id number] Norepinephrine 4 mg In 138.983 866.943 Sodium Chloride 0.9% 250 ml @ 0.03 MCG/KG/MIN 8. 915 mls/hr IV .Q24H [facility] Rx#:[id number] Sodium Chloride 0.9% 1, 375 000 ml @ 125 mls/hr IV . Q8H [facility] Rx#:[id number] Sodium Chloride 0.9% 1, 1000 000 ml @ 999 mls/hr IV . Q1H1M ONE Rx#:[id number] Vancomycin 1,500 mg In 500 Sodium Chloride 0.9% 500 ml 500 ml @ 167 mls/hr IVPB ONCE ONE Rx#: [id number] Vasopressin 20 unit In 30.447 Sodium Chloride 0.9% 50 ml @ 0.03 UNITS/MIN 4.59 mls/hr IV .Q11H7M [facility] Rx# :[id number] propofoL 1,000 mg In 29.64 106.86 59.67 Empty Bag 1 bag @ 20 MCG/ KG/MIN 9.36 mls/hr IV . [id number] [facility] Rx#:[id number] Output: Gastric Drainage 1600 250 Drainage 150 Right Abdomen 150 Urine 165 240 75 Estimated Blood Loss 25 Other: Voiding Method Indwelling Catheter Indwelling Catheter Indwelling Catheter # Bowel Movements 1 ABP, PAP, CO, CI - Last Documented Arterial Blood Pressure 101/53 - Exam No acute distress, sedated on propofol,, comfortable, intubated on the mechanical ventilator. The patient has an orotracheal and orogastric tube in place. HEENT examination is grossly unremarkable. Mucous membranes are moist. No oral lesions. The patient has a triple-lumen catheter in the left subclavian. Neck supple. Full range of motion. No adenopathy thyromegaly or neck vein distention. Cardiac exam revealed the PMI to be normally situated and sized. The rhythm was regular and no extrasystoles were noted during several minutes of auscultation. The first and second heart sounds were normal and physiologic splitting of the second heart sound was noted. There were no murmurs, rubs, clicks, or gallops. The patient is in sinus tachycardia. Lungs reveal mild scattered rhonchi. No wheezes or crackles. Breath sounds equ al. Diminished breath sound lung base bilaterally. Abdomen distended without bowel sounds. J-tube is noted. Patient also has an NG tube in place. Mid abdominal wound which is dry clean and intact and the patient has absent bowel sounds. Extremities are intact. No cyanosis clubbing trace edema lower extremities bilaterally Skin is without rash or lesion. The wound at the Mediport site is dry and the area has been sutured Neurologic examination is brief but nonfocal. Currently sedated on propofol. - Labs CBC & Chem 7: 11/26/23 04:22 11/26/23 04:22 Labs: Abnormal Lab Results - Last 24 Hours (Table) 11/25/23 11/25/23 11/25/23 Range/Units 15:18 16:34 16:34 RBC 3.91 L (4.30-5.90) m/uL Hgb 10.7 L (13.0-17.5) gm/dL Hct 36.0 L (39.0-53.0) % MCHC 29.6 L (31.0-37.0) g/dL RDW 19.2 H (11.5-15.5) % Lymphocytes # (Manual) (1.0-4.8) k/uL Metamyelocytes # (Man) (0) k/uL Myelocytes # (Manual) (0) k/uL ABG pH 7.06 L* (7.35-7.45) ABG pCO2 64 H (35-45) mmHg ABG pO2 118 H (83-108) mmHg ABG HCO3 18 L (21-25) mmol/L ABG Total CO2 (19-24) mmol/L Hemoglobin 11.0 L (13.0-17.5) gm/dL Sodium 146 H (137-145) mmol/L Chloride 116 H (98-107) mmol/L Carbon Dioxide 19 L (22-30) mmol/L BUN 61 H (9-20) mg/dL Creatinine 2.89 H (0.66-1.25) mg/dL Glucose 153 H (74-99) mg/dL POC Glucose (mg/dL) (70-110) mg/dL Plasma Lactic Acid Hector (0.7-2.0) mmol/L Calcium 7.2 L (8.4-10.2) mg/dL Ionized Calcium Krystal (4.5-5.3) mg/dL Total Protein 4.6 L (6.3-8.2) g/dL Albumin 2.3 L (3.5-5.0) g/dL 11/25/23 11/25/23 11/25/23 Range/Units 16:34 16:40 18:15 RBC (4.30-5.90) m/uL Hgb (13.0-17.5) gm/dL Hct (39.0-53.0) % MCHC (31.0-37.0) g/dL RDW (11.5-15.5) % Lymphocytes # (Manual) (1.0-4.8) k/uL Metamyelocytes # (Man) (0) k/uL Myelocytes # (Manual) (0) k/uL ABG pH 7.23 L (7.35-7.45) ABG pCO2 47 H (35-45) mmHg ABG pO2 (83-108) mmHg ABG HCO3 20 L (21-25) mmol/L ABG Total CO2 (19-24) mmol/L Hemoglobin 10.5 L (13.0-17.5) gm/dL Sodium (137-145) mmol/L Chloride (98-107) mmol/L Carbon Dioxide (22-30) mmol/L BUN (9-20) mg/dL Creatinine (0.66-1.25) mg/dL Glucose (74-99) mg/dL POC Glucose (mg/dL) 192 H (70-110) mg/dL Plasma Lactic Acid Hector 3.2 H* (0.7-2.0) mmol/L Calcium (8.4-10.2) mg/dL Ionized Calcium Krystal (4.5-5.3) mg/dL Total Protein (6.3-8.2) g/dL Albumin (3.5-5.0) g/dL 11/25/23 11/25/23 11/25/23 Range/Units 20:18 20:27 20:27 RBC 3.80 L (4.30-5.90) m/uL Hgb 10.6 L (13.0-17.5) gm/dL Hct 34.5 L (39.0-53.0) % MCHC 30.9 L (31.0-37.0) g/dL RDW 19.7 H (11.5-15.5) % Lymphocytes # (Manual) 0.97 L (1.0-4.8) k/uL Metamyelocytes # (Man) 0.56 H (0) k/uL Myelocytes # (Manual) 0.36 H (0) k/uL ABG pH (7.35-7.45) ABG pCO2 (35-45) mmHg ABG pO2 (83-108) mmHg ABG HCO3 (21-25) mmol/L ABG Total CO2 (19-24) mmol/L Hemoglobin (13.0-17.5) gm/dL Sodium (137-145) mmol/L Chloride 114 H (98-107) mmol/L Carbon Dioxide 20 L (22-30) mmol/L BUN 67 H (9-20) mg/dL Creatinine 2.71 H (0.66-1.25) mg/dL Glucose 179 H (74-99) mg/dL POC Glucose (mg/dL) (70-110) mg/dL Plasma Lactic Acid Hector 3.7 H* (0.7-2.0) mmol/L Calcium 6.7 L (8.4-10.2) mg/dL Ionized Calcium Krystal (4.5-5.3) mg/dL Total Protein (6.3-8.2) g/dL Albumin (3.5-5.0) g/dL 11/26/23 11/26/23 11/26/23 Range/Units 00:07 00:10 04:22 RBC (4.30-5.90) m/uL Hgb (13.0-17.5) gm/dL Hct (39.0-53.0) % MCHC (31.0-37.0) g/dL RDW (11.5-15.5) % Lymphocytes # (Manual) (1.0-4.8) k/uL Metamyelocytes # (Man) (0) k/uL Myelocytes # (Manual) (0) k/uL ABG pH (7.35-7.45) ABG pCO2 (35-45) mmHg ABG pO2 (83-108) mmHg ABG HCO3 (21-25) mmol/L ABG Total CO2 (19-24) mmol/L Hemoglobin (13.0-17.5) gm/dL Sodium (137-145) mmol/L Chloride 112 H (98-107) mmol/L Carbon Dioxide (22-30) mmol/L BUN 72 H (9-20) mg/dL Creatinine 2.85 H (0.66-1.25) mg/dL Glucose 205 H (74-99) mg/dL POC Glucose (mg/dL) 204 H (70-110) mg/dL Plasma Lactic Acid Hector 2.9 H* (0.7-2.0) mmol/L Calcium 6.5 L (8.4-10.2) mg/dL Ionized Calcium Krystal 3.8 L (4.5-5.3) mg/dL Total Protein 4.3 L (6.3-8.2) g/dL Albumin 2.1 L (3.5-5.0) g/dL 11/26/23 11/26/23 11/26/23 Range/Units 04:22 04:52 07:58 RBC 3.62 L (4.30-5.90) m/uL Hgb 9.9 L (13.0-17.5) gm/dL Hct 33.1 L (39.0-53.0) % MCHC 30.1 L (31.0-37.0) g/dL RDW 19.2 H (11.5-15.5) % Lymphocytes # (Manual) 0.34 L (1.0-4.8) k/uL Metamyelocytes # (Man) 0.23 H (0) k/uL Myelocytes # (Manual) 0.06 H (0) k/uL ABG pH (7.35-7.45) ABG pCO2 (35-45) mmHg ABG pO2 (83-108) mmHg ABG HCO3 (21-25) mmol/L ABG Total CO2 25 H (19-24) mmol/L Hemoglobin 10.3 L (13.0-17.5) gm/dL Sodium (137-145) mmol/L Chloride (98-107) mmol/L Carbon Dioxide (22-30) mmol/L BUN (9-20) mg/dL Creatinine (0.66-1.25) mg/dL Glucose (74-99) mg/dL POC Glucose (mg/dL) 271 H (70-110) mg/dL Plasma Lactic Acid Hector (0.7-2.0) mmol/L Calcium (8.4-10.2) mg/dL Ionized Calcium Krystal (4.5-5.3) mg/dL Total Protein (6.3-8.2) g/dL Albumin (3.5-5.0) g/dL Assessment and Plan Plan: Acute hypoxic respiratory failure and the patient failed extubation following exploratory laparotomy. He had to be reintubated. The patient has bilateral pleural effusion and infiltrates in lung base bilaterally. Blood gas was noted. The patient had a component of hypercapnic respiratory failure which improved. 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 Patient also has a J-tube in place. Both of the tubes are conn ected to suction and the patient continues to have abdominal pain with ongoing concern of a small bowel obstruction and the patient scheduled to undergo elective nephrectomy today. Small bowel perforation with abdominal contamination. The patient is status post expiratory laparotomy and small bowel resection and insertion of another jejunostomy tube. The patient is postop day #1 Peritonitis secondary to above Septic shock secondary to above, currently on high-dose pressors including norepinephrine and vasopressin. He is in a positive fluid balance. Acute hypoxic respiratory failure requiring intubation mechanical ventilation secondary to aspiration during EGD on 11/12/2023. Patient was extubated on 11/14/2023. The patient was reintubated on 11/25/2023 following his abdominal surgery. Acute aspiration pneumonia Acute aspiration during upper endoscopy most likely secondary to gastric outlet obstruction secondary to non-Hodgkin's lymphoma. weight loss most likely secondary non-Hodgkin's lymphoma involving the stomach. Paroxysmal atrial fibrillation, currently patient is in sinus tachycardia. Acute kidney injury, secondary to above, the patient is oliguric and the patient is in positive fluid balance Plan: Continue ventilator support, no change in the mechanical ventilator for today Keep the patient sedated on propofol and titrated dose for adequate sedation Keep the patient n.p.o. Keep the NG tube to suction as well as the J-tube Continue IV fluids and switch this patient to normal saline at rate of 150 cc an hour Continue IV Zosyn and vancomycin Continue pressors and the patient is currently on a combination of norepineph rine and vasopressin. He will benefit from additional 2 L of IV fluid boluses. This will be given to him today. Monitor renal function Avoid nephrotoxic agents May need to start TPN, clearance will be obtained from general surgery We will continue to follow. Condition is critical. Had a lengthy discussion with the family at the bedside. General surgery is on the case. Oncology on the case. Will likely require intubation and mechanical ventilation following abdominal surgery. This evaluation was done more than 30 minutes. Time with Patient: Greater than 30
--- NOTE | 2023-11-26 14:42 | P.PN ---
Subjective Progress Note Date: 11/26/23 Interval History: This is a 73-year-old patient, follows with Dr. Patricia Deal. Patient was seen this morning in the ICU. Patient's and daughter at the bedside. History obtained predominantly by the . Patient been having trouble with his stomach symptoms for close to 8 months. Patient underwent EGD by Dr. Sahara Cheng yesterday. Patient was found to have ulcerated around the antrum and obstruction to the pylorus. A lot of retained food was found. Patient aspirated. Had to be intubated and brought to the ICU. On a Levophed drip. FiO2 50 and a PEEP of 6. Patient had been losing weight lost about 25 pounds. Previously has a history of mitral valve prolapse. November 13: ICU. Patient remains on Precedex drip and propofol drip. Did not do well attempted extubation yesterday. Patient been off Levophed. NG tube to suction. Spoke to patient's and son at the bedside. Biopsy results awaited. Hemoglobin dropped to 6.9 this morning. Get a unit of blood. November 14: ICU. Up in a chair. Extubated yesterday. NG tube to suction. at the bedside. 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 Oncology was consulted. They have ordered a port. Results discussed with Dr. Sahara Cheng. General surgery was consu lted for J-tube placement. Discussed with at the bedside. Patient getting IV fluids, IV Zosyn,. Patient has been on IV amiodarone for A-fib-back in sinus rhythm. Multiple PACs. Did receive unit of blood yesterday. Also IV ferric gluconate. November 15: ICU. Patient earlier today underwent jejunostomy tube placement and a port placement. Patient awake. Answering questions. NG tube to suction present. Updated patient's . Patient remains on IV amiodarone and IV Zosyn. November 16: ICU. Up in the chair. NG tube present but not to suction. Trickle feeding through the jejunostomy tube should be started today. Dietitian has been on board. IV Zosyn to continue. Patient's and his sister at the bedside. Discussed. Also spoke with Dr. Serna. Given patient has no other predisposing cardiac factors for the A-fib except acute illness. His LV function is normal. Left atrium is normal. He has already been loaded with IV amiodarone. Will switch him to oral Lopressor 12.5 twice daily. Hence will DC amiodarone. Patient yesterday had wheezing was put on bronchodilators steroids per pulmonary. November 17: Propped up in bed. NG tube was discontinued. Sinus rhythm. Remains NPO. Getting G-tube feeding at 40 cc an hour. Dietitian following. Get arrangements done for DC home tomorrow including tube feeding. Increase activity discussed with patient and elder daughter at the bedside. Still requiring oxygen. Incentive spirometry. November 18: Patient up in recliner. Earlier today spoke to drug abuse social worker David. Informed patient is rather weak and will be going to the [facility]. Looking at authorization. Denae came to the room and spoke to patient his and his daughter. They are very keen to take the patient home as 3 daughters all nurses and they will take care of him at home. Patient earlier today to abdominal cramping and some loose stools.'s tube feeding was held. Told the nurse to start back at the rate of 40 cc an hour. He was before the getting it at 55 cc an hour. Incentive spirometry was again emphasized. Patient remains on 4 L of oxygen. November 19: I saw the patient this morning. Hence I am in the evening. Morning was sitting with his sons. Has some edema. Lungs had crackles I gave him 40 mg of Lasix. He did make good urine. Tube feeding was held from the previous evening of because of abdominal cramping. Acute abdominal series showed nonspecific bowel gas pattern and SBO to be ruled out. Family and patien t was updated. Told him discharge will depend on day by day. Later this afternoon CT scanAnd abdomen pelvis done. Showed small bowel to be 3 point centimeter dilated. Some anasarca. Gastric findings. Gallstones. Later spoke to Dr. Irby from general surgery. They will further review and decide about further plan of action. Will give further dose of IV Lasix because of fluid overload from likely hypoalbuminemia and IV fluids previously received. Patient may take his pills by mouth. Total time spent today about 1 hour with over 40 minutes of discussion. Patient did state his breathing is better after Lasix this morning. November 20: Saw the patient this morning. was present. Patient received 2 more doses of Lasix. Diuresed well. Breathing much better. Lungs are soundi ng better. Discussed with Dr. Zepeda other surgeon. He is taking 3 cc out of the balloon and the gastrostomy tube. Started trickle feeding at 5 cc an hour. Will see how this does. Later in the day ran into the and the daughter again. Did update them on the same. Dilaudid was discontinued yesterday but morphine was ordered by surgery for patient having pain. Concerns about GI issues with that we will DC the morphine. As family does not want the same. November 21: Patient reclining bed. Tired. Several family members at the bedside. Including his and eldest daughter. Patient started on trickle feed yesterday at 5 cc an hour. This morning he has been on [address] ill having some loose stools. C. difficile was ordered. Patient on 2 L of nasal cannula. Has diuresed well. Will give an additional dose of Lasix today. If C. difficile is negative and the diarrhea is from the tube feedings we may have to use a fecal management system to keep him comfortable. Otherwise patient remains NPO. Dietitian is following the patient. Care was discussed length with patient the and daughter at the bedside. Questions answered. Liquid Tylenol has been added for abdominal pain. Avoid narcotics. Elevated white count likely from Solu-Medrol 11/23/2023--patient was feeling better today. Multiple family member at bedside. No issues overnight. Normal saline at 10 cc an hour, tube feeding at 20 cc an hour, remains on Zosyn, on 3 L oxygen. Afebrile. Heart rate 62, respiratory rate 16, blood pressure 114/67, saturating 91% on 3 L. WBCs 14.5, 9.7 hemoglobin. Platelet 242. BMP is unremarkable. Pulmonary and general surgery following. General surgery recommended to continue tube feeds at 20 cc/h. 11/24/2023--patient reported significant abdominal discomfort, also noted to have leak around G-tube. General surgery is following, evaluated the patient at bedside, adjusted tube feeds. Also reported having diarrhea, on 2 L oxygen, went up to 5 L. Blood pressure was low, 500 mL fluid bolus with close monitoring of respiratory status ordered. Currently on DuoNebs, Solu-Medrol, will continue Zosyn. Chest x-ray showed a left lower lobe infiltrate. Abdominal x-ray showed multiple air-fluid levels. CT abdomen showed multiple dilated small bowel loops, consistent with obstruction, pneumoperitoneum, cholelithiasis and ascites. WBCs 14.1, platelet 255, hemoglobin 8.9. NG tube in place. Family at bedside. patient transferred to SICU for close monitoring. 11/25/23--patient is currently in the ICU, required Levophed overnight due to low blood pressure, low urine output with creatinine trending up. Nephrology following. Customer Training Specialist also following. Patient remains n.p.o., NG tube in place, following NG tube insertion patient had total of 2 L output, J-tube was draining approximately 200 cc over last 8 hours, continues to have abdominal pain and abdominal tenderness. Patient on IV fluids. Currently on 4 L oxygen. WBCs 8.2, hemoglobin 12.3, platelet 188. Chest x-ray earlier today showed right sided port and a stable left lung airspace disease, NG tube in place. Patient currently on Zosyn, on IV Dilaudid for pain control, on IV Solu-Medrol. General surgery planning for OR today, started on TPN. 11/26/23--patient was seen and examined today. Patient is currently sedated, intubated on mechanical ventilation. Family at bedside. Patient underwent ex lap, abdominal washout, small bowel resection with new feeding jejunostomy tube placement yesterday, small bowel was noted to be perforated with significant contamination of abdominal cavity. Patient is currently on vancomycin and Zosyn. Creatinine went up to 2.85, nephrology following, recommended to continue IV fluids, avoid nephrotoxin Preserved EF on echocardiogram.. Patient currently on Levophed, vasopressin in the ICU for close monitoring. Patient is afebrile, heart rate 122, blood pressure 129/76, currently on mechanical ventilation, sedated. 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 -Possible small bowel obstruction. Unclear if related to jejunostomy tube. Bowel involvement with lymphoma also possible.: Jejunostomy tube balloon deflated by 3 mm-November 20. Apparently about 10 cc put initially. Repeat CT abdomen pelvis 11/23 done due to ongoing abdominal pain and tenderness, leakage from G-tube site, concerning for SBO. Hold tube feeds, started TPN In the ICU for hypotensive shock on Levophed General Surgery following, status post ex lap, abdominal washout, small bowel resection with Witzel jejunostomy tube placement 11/24 Antibiotics: Vancomycin and Rocephin - -Acute hypoxic respiratory failure, on mechanical ventilation: -Aspiration pneumonitis bilateral from retained gastric contents mostly food and liquids, causing acute hypoxic respiratory failure: IV Zosyn Pulmonary following -Acute pulmonary edema and fluid overload from hypoalbuminemic state and fluids from IV.: Improving Patient received a total of 3 doses of IV Lasix 40 mg.. Will give 1 more dose of IV Lasix 40 mg today -Acute kidney injury. Possible ATN from hypotensive shock: Corrected Renal ultrasound unremarkable Nephrology consulted and following. Continue IV fluids. -Nutrition Jejunostomy tube placed November [address] Ewing Tube feeding at 10 cc an hour. -Acute critical care transitional atrial fibrillation-sinus rhythm IV amiodarone. Discussed with Dr. Serna from cardiology. Stop amiodarone. Lopressor 12.5 twice daily -Acute hypoxic respiratory failure from aspiration pneumonia, status post ventilator assisted: Now 2 L nasal cannula Incentive spirometry -Normocytic anemia likely to secondary underlying lymphoma Iron deficiency anemia Received a unit of blood. IV iron. -Acute blood loss anemia, could be oozing from biopsy site in the stomach Received blood -GERD PPI -Acute diarrhea secondary to tube feeding. C. difficile ruled out. -Large superficial gastric antral ulceration involving the gastric antrum extending into the pylorus with gastric outlet obstruction. 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 Port placed. For outpatient PET scan. -Full code Tube feeding per general surgery. Being followed by surgery. PHYSICAL EXAMINATION: GENERAL: Intubated, sedated. HEENT: EOMI, Sclerae anicteric, Moist Mucous membranes Neck: Supple, Non tender, No JVD PULMONARY: Equal breath souds B/L, No wheezing, No crackles. CARDIOVASCULAR: S1, S2 present. No murmurs, rubs, or gallops. ABDOMEN: G-tube in place, tenderness. Distention. MUSCULOSKELETAL: No edema, No cyanosis. No clubbing. Normal ROM. Intact peripheral pulses. EXTREMITIES: No cyanosis, clubbing, or pedal edema. NEUROLOGICAL: Limited, sedated. Skin: No Rash REVIEW OF SYSTEMS: Limited review of system, intubated and sedated. Dictation was produced using Clipboard dictation software. please excuse any grammatical, word or spelling errors. Objective - Vital Signs Vital signs: Vital Signs Temp 98.5 F 11/26/23 08:00 Pulse 122 H 11/26/23 08:58 Resp 28 H 11/26/23 08:00 BP 129/76 11/26/23 08:00 Pulse Ox 93 L 11/26/23 08:00 FiO2 60 11/26/23 08:00 Intake & Output 11/25/23 11/26/23 11/26/23 18:59 06:59 18:59 Intake Total 4393.623 2754.250 360.072 Output Total 1790 390 325 Balance 2603.623 2364.250 35.072 Weight 78 kg 90.2 kg Intake: IV 1750 1750 300 0.9 150 Dextrose 5% in Water 1, 1650 300 000 ml @ 150 mls/hr IV . Q7H40M [facility]AL with Sodium Bicarb (1 Meq/ml) 150 ml Rx#:[id number] Piperacillin-Tazobactam 3 200 100 .375 gm In Sodium Chloride 0.9% 100 ml @ 25 mls/hr IVPB Q8HR NIRMAL Rx# :[id number] Intake, IV Titration 2643.623 1004.250 60.072 Amount Dextrose 5% in Water 1, 600 000 ml @ 150 mls/hr IV . Q7H40M NIRMAL with Sodium Bicarb (1 Meq/ml) 150 ml Rx#:[id number] Norepinephrine 32 mg In 0.402 Sodium Chloride 0.9% 218 ml @ 0.03 MCG/KG/MIN 1. 097 mls/hr IV .Q24H [facility]AL Rx#:[id number] Norepinephrine 4 mg In 138.983 866.943 Sodium Chloride 0.9% 250 ml @ 0.03 MCG/KG/MIN 8. 915 mls/hr IV .Q24H [facility] Rx#:[id number] Sodium Chloride 0.9% 1, 375 000 ml @ 125 mls/hr IV . Q8H [facility] Rx#:[id number] Sodium Chloride 0.9% 1, 1000 000 ml @ 999 mls/hr IV . Q1H1M ONE Rx#:[id number] Vancomycin 1,500 mg In 500 Sodium Chloride 0.9% 500 ml 500 ml @ 167 mls/hr IVPB ONCE ONE Rx#: [id number] Vasopressin 20 unit In 30.447 Sodium Chloride 0.9% 50 ml @ 0.03 UNITS/MIN 4.59 mls/hr IV .Q11H7M [facility] Rx# :[id number] propofoL 1,000 mg In 29.64 106.86 59.67 Empty Bag 1 bag @ 20 MCG/ KG/MIN 9.36 mls/hr IV . [id number] NIRMAL Rx#:[id number] Output: Gastric Drainage 1600 250 Drainage 150 Right Abdomen 150 Urine 165 240 75 Estimated Blood Loss 25 Other: Voiding Method Indwelling Catheter Indwelling Catheter Indwelling Catheter # Bowel Movements 1 ABP, PAP, CO, CI - Last Documented Arterial Blood Pressure 101/53 - Labs CBC & Chem 7: 11/26/23 04:22 11/26/23 04:22 Labs: Abnormal Lab Results - Last 24 Hours (Table) 11/25/23 11/25/23 11/25/23 Range/Units 15:18 16:34 16:34 RBC 3.91 L (4.30-5.90) m/uL Hgb 10.7 L (13.0-17.5) gm/dL Hct 36.0 L (39.0-53.0) % MCHC 29.6 L (31.0-37.0) g/dL RDW 19.2 H (11.5-15.5) % Lymphocytes # (Manual) (1.0-4.8) k/uL Metamyelocytes # (Man) (0) k/uL Myelocytes # (Manual) (0) k/uL ABG pH 7.06 L* (7.35-7.45) ABG pCO2 64 H (35-45) mmHg ABG pO2 118 H (83-108) mmHg ABG HCO3 18 L (21-25) mmol/L ABG Total CO2 (19-24) mmol/L Hemoglobin 11.0 L (13.0-17.5) gm/dL Sodium 146 H (137-145) mmol/L Chloride 116 H (98-107) mmol/L Carbon Dioxide 19 L (22-30) mmol/L BUN 61 H (9-20) mg/dL Creatinine 2.89 H (0.66-1.25) mg/dL Glucose 153 H (74-99) mg/dL POC Glucose (mg/dL) (70-110) mg/dL Plasma Lactic Acid Hector (0.7-2.0) mmol/L Calcium 7.2 L (8.4-10.2) mg/dL Ionized Calcium Krystal (4.5-5.3) mg/dL Total Protein 4.6 L (6.3-8.2) g/dL Albumin 2.3 L (3.5-5.0) g/dL 11/25/23 11/25/23 11/25/23 Range/Units 16:34 16:40 18:15 RBC (4.30-5.90) m/uL Hgb (13.0-17.5) gm/dL Hct (39.0-53.0) % MCHC (31.0-37.0) g/dL RDW (11.5-15.5) % Lymphocytes # (Manual) (1.0-4.8) k/uL Metamyelocytes # (Man) (0) k/uL Myelocytes # (Manual) (0) k/uL ABG pH 7.23 L (7.35-7.45) ABG pCO2 47 H (35-45) mmHg ABG pO2 (83-108) mmHg ABG HCO3 20 L (21-25) mmol/L ABG Total CO2 (19-24) mmol/L Hemoglobin 10.5 L (13.0-17.5) gm/dL Sodium (137-145) mmol/L Chloride (98-107) mmol/L Carbon Dioxide (22-30) mmol/L BUN (9-20) mg/dL Creatinine (0.66-1.25) mg/dL Glucose (74-99) mg/dL POC Glucose (mg/dL) 192 H (70-110) mg/dL Plasma Lactic Acid Hector 3.2 H* (0.7-2.0) mmol/L Calcium (8.4-10.2) mg/dL Ionized Calcium Krystal (4.5-5.3) mg/dL Total Protein (6.3-8.2) g/dL Albumin (3.5-5.0) g/dL 11/25/23 11/25/23 11/25/23 Range/Units 20:18 20:27 20:27 RBC 3.80 L (4.30-5.90) m/uL Hgb 10.6 L (13.0-17.5) gm/dL Hct 34.5 L (39.0-53.0) % MCHC 30.9 L (31.0-37.0) g/dL RDW 19.7 H (11.5-15.5) % Lymphocytes # (Manual) 0.97 L (1.0-4.8) k/uL Metamyelocytes # (Man) 0.56 H (0) k/uL Myelocytes # (Manual) 0.36 H (0) k/uL ABG pH (7.35-7.45) ABG pCO2 (35-45) mmHg ABG pO2 (83-108) mmHg ABG HCO3 (21-25) mmol/L ABG Total CO2 (19-24) mmol/L Hemoglobin (13.0-17.5) gm/dL Sodium (137-145) mmol/L Chloride 114 H (98-107) mmol/L Carbon Dioxide 20 L (22-30) mmol/L BUN 67 H (9-20) mg/dL Creatinine 2.71 H (0.66-1.25) mg/dL Glucose 179 H (74-99) mg/dL POC Glucose (mg/dL) (70-110) mg/dL Plasma Lactic Acid Hector 3.7 H* (0.7-2.0) mmol/L Calcium 6.7 L (8.4-10.2) mg/dL Ionized Calcium Krystal (4.5-5.3) mg/dL Total Protein (6.3-8.2) g/dL Albumin (3.5-5.0) g/dL 11/26/23 11/26/23 11/26/23 Range/Units 00:07 00:10 04:22 RBC (4.30-5.90) m/uL Hgb (13.0-17.5) gm/dL Hct (39.0-53.0) % MCHC (31.0-37.0) g/dL RDW (11.5-15.5) % Lymphocytes # (Manual) (1.0-4.8) k/uL Metamyelocytes # (Man) (0) k/uL Myelocytes # (Manual) (0) k/uL ABG pH (7.35-7.45) ABG pCO2 (35-45) mmHg ABG pO2 (83-108) mmHg ABG HCO3 (21-25) mmol/L ABG Total CO2 (19-24) mmol/L Hemoglobin (13.0-17.5) gm/dL Sodium (137-145) mmol/L Chloride 112 H (98-107) mmol/L Carbon Dioxide (22-30) mmol/L BUN 72 H (9-20) mg/dL Creatinine 2.85 H (0.66-1.25) mg/dL Glucose 205 H (74-99) mg/dL POC Glucose (mg/dL) 204 H (70-110) mg/dL Plasma Lactic Acid Hector 2.9 H* (0.7-2.0) mmol/L Calcium 6.5 L (8.4-10.2) mg/dL Ionized Calcium Krystal 3.8 L (4.5-5.3) mg/dL Total Protein 4.3 L (6.3-8.2) g/dL Albumin 2.1 L (3.5-5.0) g/dL 11/26/23 11/26/23 11/26/23 Range/Units 04:22 04:52 07:58 RBC 3.62 L (4.30-5.90) m/uL Hgb 9.9 L (13.0-17.5) gm/dL Hct 33.1 L (39.0-53.0) % MCHC 30.1 L (31.0-37.0) g/dL RDW 19.2 H (11.5-15.5) % Lymphocytes # (Manual) 0.34 L (1.0-4.8) k/uL Metamyelocytes # (Man) 0.23 H (0) k/uL Myelocytes # (Manual) 0.06 H (0) k/uL ABG pH (7.35-7.45) ABG pCO2 (35-45) mmHg ABG pO2 (83-108) mmHg ABG HCO3 (21-25) mmol/L ABG Total CO2 25 H (19-24) mmol/L Hemoglobin 10.3 L (13.0-17.5) gm/dL Sodium (137-145) mmol/L Chloride (98-107) mmol/L Carbon Dioxide (22-30) mmol/L BUN (9-20) mg/dL Creatinine (0.66-1.25) mg/dL Glucose (74-99) mg/dL POC Glucose (mg/dL) 271 H (70-110) mg/dL Plasma Lactic Acid Hector (0.7-2.0) mmol/L Calcium (8.4-10.2) mg/dL Ionized Calcium Krystal (4.5-5.3) mg/dL Total Protein (6.3-8.2) g/dL Albumin (3.5-5.0) g/dL
[2023-11-26] MEDS: MORPHINE SULFATE 2 MG/ML SYRINGE IVP PRN (15:26)
[2023-11-26] MEDS: CALCIUM GLUCONATE IN NACL 1 GM in SALINE 1 100ML.BAG IVPB ONE (15:28)
--- NOTE | 2023-11-26 15:28 | P.PN ---
Subjective Progress Note Date: 11/26/23 Patient seen and examined at bedside. Vented, sedated, family is at bedside. Objective - Vital Signs Vital signs: Vital Signs Temp 98.6 F 11/26/23 13:00 Pulse 108 H 11/26/23 14:15 Resp 28 H 11/26/23 14:15 BP 125/71 11/26/23 11:45 Pulse Ox 94 L 11/26/23 14:15 FiO2 60 11/26/23 12:00 Intake & Output 11/25/23 11/26/23 11/26/23 18:59 06:59 18:59 Intake Total 4393.623 2754.250 2144.790 Output Total 1790 390 595 Balance 2603.623 2364.250 1549.790 Weight 78 kg 90.2 kg Intake: IV 1750 1750 1500 0.9 150 Dextrose 5% in Water 1, 1650 300 000 ml @ 150 mls/hr IV . Q7H40M [facility] with Sodium Bicarb (1 Meq/ml) 150 ml Rx#:[id number] Magnesium Sulfate-D5w Pmx 200 1 gm In Dextrose/Water 1 100ml.bag @ 100 mls/hr IVPB Q1H [facility] Rx#: [id number] Piperacillin-Tazobactam 3 200 100 100 .375 gm In Sodium Chloride 0.9% 100 ml @ 25 mls/hr IVPB Q8HR [facility] Rx# :[id number] Sodium Chloride 0.9% 1, 900 000 ml @ 150 mls/hr IV . Q6H40M [facility] Rx#:[id number] Intake, IV Titration 2643.623 1004.250 644.790 Amount Dextrose 5% in Water 1, 600 000 ml @ 150 mls/hr IV . Q7H40M [facility] with Sodium Bicarb (1 Meq/ml) 150 ml Rx#:[id number] Norepinephrine 32 mg In 20.146 Sodium Chloride 0.9% 218 ml @ 0.03 MCG/KG/MIN 1. 097 mls/hr IV .Q24H [facility] Rx#:[id number] Norepinephrine 4 mg In 138.983 866.943 Sodium Chloride 0.9% 250 ml @ 0.03 MCG/KG/MIN 8. 915 mls/hr IV .Q24H [facility] Rx#:[id number] Sodium Chloride 0.9% 1, 375 000 ml @ 125 mls/hr IV . Q8H [facility] Rx#:[id number] Sodium Chloride 0.9% 1, 1000 000 ml @ 999 mls/hr IV . Q1H1M ONE Rx#:[id number] Vancomycin 1,500 mg In 500 500 Sodium Chloride 0.9% 500 ml 500 ml @ 167 mls/hr IVPB ONCE ONE Rx#: [id number] Vasopressin 20 unit In 30.447 Sodium Chloride 0.9% 50 ml @ 0.03 UNITS/MIN 4.59 mls/hr IV .Q11H7M [facility] Rx# :[id number] propofoL 1,000 mg In 29.64 106.86 124.644 Empty Bag 1 bag @ 20 MCG/ KG/MIN 9.36 mls/hr IV . [id number] [facility] Rx#:[id number] Output: Gastric Drainage 1600 400 Drainage 150 Right Abdomen 150 Urine 165 240 195 Estimated Blood Loss 25 Other: Voiding Method Indwelling Catheter Indwelling Catheter Indwelling Catheter # Bowel Movements 1 ABP, PAP, CO, CI - Last Documented Arterial Blood Pressure 118/63 - Constitutional Constitutional Comment(s): Vented, sedated - Respiratory Details: Vented, tolerating breathing tube - Cardiovascular Details: Tachycardic - Gastrointestinal Gastrointestinal Comment(s): Soft, J-tube in place, incision site with surgical dressing in place - Labs CBC & Chem 7: 11/26/23 04:22 11/26/23 04:22 Labs: Abnormal Lab Results - Last 24 Hours (Table) 11/25/23 11/25/23 11/25/23 Range/Units 16:34 16:34 16:34 RBC 3.91 L (4.30-5.90) m/uL Hgb 10.7 L (13.0-17.5) gm/dL Hct 36.0 L (39.0-53.0) % MCHC 29.6 L (31.0-37.0) g/dL RDW 19.2 H (11.5-15.5) % Lymphocytes # (Manual) (1.0-4.8) k/uL Metamyelocytes # (Man) (0) k/uL Myelocytes # (Manual) (0) k/uL ABG pH (7.35-7.45) ABG pCO2 (35-45) mmHg ABG HCO3 (21-25) mmol/L ABG Total CO2 (19-24) mmol/L Hemoglobin (13.0-17.5) gm/dL Sodium 146 H (137-145) mmol/L Chloride 116 H (98-107) mmol/L Carbon Dioxide 19 L (22-30) mmol/L BUN 61 H (9-20) mg/dL Creatinine 2.89 H (0.66-1.25) mg/dL Glucose 153 H (74-99) mg/dL POC Glucose (mg/dL) (70-110) mg/dL Plasma Lactic Acid Hector 3.2 H* (0.7-2.0) mmol/L Calcium 7.2 L (8.4-10.2) mg/dL Ionized Calcium Krystal (4.5-5.3) mg/dL Total Protein 4.6 L (6.3-8.2) g/dL Albumin 2.3 L (3.5-5.0) g/dL Triglycerides (0.00-149.00) mg/dL 11/25/23 11/25/23 11/25/23 Range/Units 16:40 18:15 20:18 RBC 3.80 L (4.30-5.90) m/uL Hgb 10.6 L (13.0-17.5) gm/dL Hct 34.5 L (39.0-53.0) % MCHC 30.9 L (31.0-37.0) g/dL RDW 19.7 H (11.5-15.5) % Lymphocytes # (Manual) 0.97 L (1.0-4.8) k/uL Metamyelocytes # (Man) 0.56 H (0) k/uL Myelocytes # (Manual) 0.36 H (0) k/uL ABG pH 7.23 L (7.35-7.45) ABG pCO2 47 H (35-45) mmHg ABG HCO3 20 L (21-25) mmol/L ABG Total CO2 (19-24) mmol/L Hemoglobin 10.5 L (13.0-17.5) gm/dL Sodium (137-145) mmol/L Chloride (98-107) mmol/L Carbon Dioxide (22-30) mmol/L BUN (9-20) mg/dL Creatinine (0.66-1.25) mg/dL Glucose (74-99) mg/dL POC Glucose (mg/dL) 192 H (70-110) mg/dL Plasma Lactic Acid Hector (0.7-2.0) mmol/L Calcium (8.4-10.2) mg/dL Ionized Calcium Krystal (4.5-5.3) mg/dL Total Protein (6.3-8.2) g/dL Albumin (3.5-5.0) g/dL Triglycerides (0.00-149.00) mg/dL 11/25/23 11/25/23 11/26/23 Range/Units 20:27 20:27 00:07 RBC (4.30-5.90) m/uL Hgb (13.0-17.5) gm/dL Hct (39.0-53.0) % MCHC (31.0-37.0) g/dL RDW (11.5-15.5) % Lymphocytes # (Manual) (1.0-4.8) k/uL Metamyelocytes # (Man) (0) k/uL Myelocytes # (Manual) (0) k/uL ABG pH (7.35-7.45) ABG pCO2 (35-45) mmHg ABG HCO3 (21-25) mmol/L ABG Total CO2 (19-24) mmol/L Hemoglobin (13.0-17.5) gm/dL Sodium (137-145) mmol/L Chloride 114 H (98-107) mmol/L Carbon Dioxide 20 L (22-30) mmol/L BUN 67 H (9-20) mg/dL Creatinine 2.71 H (0.66-1.25) mg/dL Glucose 179 H (74-99) mg/dL POC Glucose (mg/dL) (70-110) mg/dL Plasma Lactic Acid Hector 3.7 H* 2.9 H* (0.7-2.0) mmol/L Calcium 6.7 L (8.4-10.2) mg/dL Ionized Calcium Krystal (4.5-5.3) mg/dL Total Protein (6.3-8.2) g/dL Albumin (3.5-5.0) g/dL Triglycerides (0.00-149.00) mg/dL 0911/26/23 11/26/23 Range/Units 00:10 04:22 04:22 RBC 3.62 L (4.30-5.90) m/uL Hgb 9.9 L (13.0-17.5) gm/dL Hct 33.1 L (39.0-53.0) % MCHC 30.1 L (31.0-37.0) g/dL RDW 19.2 H (11.5-15.5) % Lymphocytes # (Manual) 0.34 L (1.0-4.8) k/uL Metamyelocytes # (Man) 0.23 H (0) k/uL Myelocytes # (Manual) 0.06 H (0) k/uL ABG pH (7.35-7.45) ABG pCO2 (35-45) mmHg ABG HCO3 (21-25) mmol/L ABG Total CO2 (19-24) mmol/L Hemoglobin (13.0-17.5) gm/dL Sodium (137-145) mmol/L Chloride 112 H (98-107) mmol/L Carbon Dioxide (22-30) mmol/L BUN 72 H (9-20) mg/dL Creatinine 2.85 H (0.66-1.25) mg/dL Glucose 205 H (74-99) mg/dL POC Glucose (mg/dL) 204 H (70-110) mg/dL Plasma Lactic Acid Hector (0.7-2.0) mmol/L Calcium 6.5 L (8.4-10.2) mg/dL Ionized Calcium Krystal 3.8 L (4.5-5.3) mg/dL Total Protein 4.3 L (6.3-8.2) g/dL Albumin 2.1 L (3.5-5.0) g/dL Triglycerides 315.00 H (0.00-149.00) mg/dL 11/26/23 11/26/23 11/26/23 Range/Units 04:52 07:58 12:05 RBC (4.30-5.90) m/uL Hgb (13.0-17.5) gm/dL Hct (39.0-53.0) % MCHC (31.0-37.0) g/dL RDW (11.5-15.5) % Lymphocytes # (Manual) (1.0-4.8) k/uL Metamyelocytes # (Man) (0) k/uL Myelocytes # (Manual) (0) k/uL ABG pH (7.35-7.45) ABG pCO2 (35-45) mmHg ABG HCO3 (21-25) mmol/L ABG Total CO2 25 H (19-24) mmol/L Hemoglobin 10.3 L (13.0-17.5) gm/dL Sodium (137-145) mmol/L Chloride (98-107) mmol/L Carbon Dioxide (22-30) mmol/L BUN (9-20) mg/dL Creatinine (0.66-1.25) mg/dL Glucose (74-99) mg/dL POC Glucose (mg/dL) 271 H 208 H (70-110) mg/dL Plasma Lactic Acid Hector (0.7-2.0) mmol/L Calcium (8.4-10.2) mg/dL Ionized Calcium Krystal (4.5-5.3) mg/dL Total Protein (6.3-8.2) g/dL Albumin (3.5-5.0) g/dL Triglycerides (0.00-149.00) mg/dL Assessment and Plan Plan: Postoperative, small bowel resection and Witzel jejunostomy feeding tube placement. Current concern of septic shock. Patient is intubated and sedated in the ICU. Patient requiring 2 pressors, however MAP is greater than 85 and pr essor requirement has been decreasing per nursing. Blood cultures are pending. Patient's Mediport site was evaluated and currently minimal erythema, however if blood cultures are noted to be concerning, we will consider removing Mediport. Continue to hold tube feeds and begin TPN at this time. Continue ICU care. Will continue to follow closely.
[2023-11-26] MEDS: AMIODARONE 360 MG in DEXTROSE 5% IN WATER 200 ML IV ONE (17:05)
[2023-11-26 17:11] LABS: Glucose,Whole Blood 261 mg/dL (70-110)
[2023-11-26] MEDS: DEXTROSE 5% IN WATER 100 ML with AMIODARONE 150 MG IV ONE (17:15)
[2023-11-26] MEDS: HYDROmorphone 1 MG/ML 1 ML SYRINGE IVP PRN (18:22)
[2023-11-26] MEDS: ACETAMINOPHEN IV (For NPO) 1,000 MG in EMPTY BAG 1 BAG IVPB ONE (18:38)
[2023-11-26] MEDS: AMIODARONE 450 MG in DEXTROSE 5% IN WATER 250 ML IV SCH (23:12)
[2023-11-26 23:51] LABS: Glucose,Whole Blood 294 mg/dL (70-110)
[2023-11-27 05:08] LABS: ABG Base Excess -6.3 mmol/L; ABG HCO3 20 mmol/L (21-25); ABG Oxygen Saturation 95.3 % (94-97); ABG PCO2 42 mmHg (35-45); ABG PH 7.29 (7.35-7.45); ABG PO2 78 mmHg (83-108); ABG TCO2 21 mmol/L (19-24)
[2023-11-27 05:10] LABS: ALT 19 U/L (4-49); AST 77 U/L (17-59); African American GFR (CKD) 18 (>60 ml/min/1.73 sqM); Albumin 2.1 g/dL (3.5-5.0); Alkaline Phosphatase 64 U/L (38-126); Anion Gap 10 mmol/L; Blood Urea Nitrogen 83 mg/dL (9-20); Carbon Dioxide 19 mmol/L (22-30); Chloride 111 mmol/L (98-107); Glucose 280 mg/dL (74-99); Magnesium 2.1 mg/dL (1.6-2.3); Non-African American GFR(CKD) 15 (>60 ml/min/1.73 sqM); Phosphorus 5.1 mg/dL (2.5-4.5); Sodium 140 mmol/L (137-145); Total Bilirubin 1.1 mg/dL (0.2-1.3); Total Protein 4.7 g/dL (6.3-8.2)
[2023-11-27 05:21] LABS: Allen Test Performed? no
[2023-11-27 05:39] LABS: Calcium 6.1 mg/dL (8.4-10.2)
[2023-11-27 05:40] LABS: Potassium 5.5 mmol/L (3.5-5.1)
[2023-11-27 06:03] LABS: Anisocytosis Slight; HCT 30.6 % (39.0-53.0); HGB 9.4 gm/dL (13.0-17.5); Hypochromasia Marked; MCH 28.4 pg (25.0-35.0); MCHC 30.8 g/dL (31.0-37.0); MCV 92.1 fL (80.0-100.0); Macrocytosis Slight; Mean Platelet Volume 12.9; RBC 3.33 m/uL (4.30-5.90); RDW 19.4 % (11.5-15.5)
[2023-11-27] MEDS: CALCIUM GLUCONATE IN NACL 2 GM in SALINE 1 100ML.BAG IVPB ONE ×2 (06:52→19:01)
[2023-11-27 08:12] LABS: Band Neutrophils % 8 %; Dohle Bodies Present; Lymphocytes # (M) 0.26 k/uL (1.0-4.8); Metamyelocytes # (M) 0.13 k/uL (0); Metamyelocytes % 1 %; Monocytes # (M) 0.65 k/uL (0-1.0); Neutrophils % (M) 85 %; Nucleated Red Blood Cells 1 /100 WBC (0-0); Total Cells Counted 200
[2023-11-27 08:13] LABS: Poikilocytosis (M) Present
--- NOTE | 2023-11-27 09:42 | XR ---
EXAMINATION TYPE: XR chest 1V portable DATE OF EXAM: 11/27/2023 COMPARISON: 11/26/2023 INDICATION: Tube placement TECHNIQUE: Single frontal view of the chest is obtained. FINDINGS: The heart size is normal. The pulmonary vasculature is normal. Small left pleural effusion is present. Right lower lobe infiltrates developing. Correlate for pneumo raul or atelectasis. Right-sided port is present with the tip in the right atrium. Left central venous catheter is present with tip superior vena cava. Endotracheal tube is present 4.5 cm above the josseline. Nasogastric tube transverses the thorax. IMPRESSION: 1. Right lower lobe consolidation. Correlate for developing pneumonia or atelectasis. 2. Small left pleural effusion. 3. Lines and catheters discussed above. [facility], , 11/27/2023 9:40 AM
[2023-11-27] MEDS: FUROSEMIDE 10 MG/ML 10 ML VIAL IV STA ×2 (10:06→21:41)
[2023-11-27] MEDS ORDERED: SODIUM BICARB 8.4% 50 ML SYR (1 MEQ/ML) IV STA (10:20)
--- NOTE | 2023-11-27 11:15 | P.PN ---
Subjective Progress Note Date: 11/27/23 Abdominal pain. This is a 73-year-old white male with history of chronic abdominal pain for the last 8 months has been treated with Protonix 40 mg daily for the last 3 months with no improvement. Patient had a 22 pound weight loss in the last [address] of the abdomen and pelvis 3 weeks ago showed thickening of the antral wall with pathological adenopathy posterior to the stomach suspicious of neoplasm. Today the patient underwent elective upper endoscopy to evaluate further, patient received IV sedation by anesthesia endoscope was inserted into the mouth, esophagus was intubated without any difficulty there was evidence of large amount of liquid and solid food noted in the stomach suggestive of gastric outlet obstruction. Scope could not be advanced through the pylorus, however in the prepyloric area there was a large superficial ulceration identified with multiple biopsies were done from this area. The body cardia and fundus could not adequately visualize because of large amount of retained food in the stomach. Scope was withdrawn back to the stomach and upon careful examination the mucosa of the antrum body and cardia as well as the fundus appeared normal. Procedure was being performed and biopsies were done patient threw up and subsequently became hypoxic there was clearly evidence of witnessed aspiration anesthesia intubated the patient, procedure was terminated, and the patient was transferred to the ICU, this consult was initiated. Patient is now on assist- control rate of 20 tidal volume 500 FiO2 70% PEEP of 10 ABG is pending, earlier ABG showed profound hypoxia patient is on propofol at 50 mcg/kg/min, next ABG is pending. Chest x-ray showed chronic changes without evidence of acute pulmonary disease. Patient was seen and examined today on 11/13/2023, remains in the ICU, intubated mechanically ventilated, on assist-control rate of 20 tidal volume 500 FiO2 50% and PEEP of 10 ABG showed a pO2 of 143 pCO2 47 pH of 7.28 hence PEEP was cut down to 6, and increased rate to 22. Patient is still requiring IV fluid at 100 cc/h/LR. Requiring norepinephrine at 0.08 mcg/kg/min he is also on propofol at 50 mg/kg/min antibiotics arce patient is receiving Zosyn. Chest x-ray is showing worsening infiltrates specially in the left lung. This could be related to aspiration pneumonia. Patient had witnessed aspiration during endoscopy/upper endoscopy.WBC count is 14 hemoglobin 7.6 basic metabolic profile is normal BUN is 26 creatinine 1.57 obviously the patient sustained some acute kidney injury baseline creatinine 0.86 patient had received fluids over the last 24 hours, remains on fluids at 100 cc/h Patient with seen and examined today on 11/14/2023, patient remains in the ICU, intubated and mechanically ventilated. Failed weaning trial yesterday and he became quite agitated and desaturated once he went off propofol. Had to be placed back on assist-control mode of mechanical ventilation and sedation. Today the patient is on assist-control rate of 22 tidal volume 500 FiO2 50% PEEP of 6. ABG showed a pO2 of 123 pCO2 51 pH of 7.32, and I cut down his FiO2 down to 45%, patient is receiving a unit of packed RBCs for hemoglobin of 6.9 today. Patient had an episode of A-fib RVR at 3 AM in the morning, seen by cardiology, and recommended patient goes on amiodarone. Still requiring norepinephrine at 0.05 mg/kg/min, he is on LR at 100 cc/h propofol at 50 mg/kg/min. Remains empirically on Zosyn for aspiration pneumonia. My plan today is transitioning the patient to Precedex, hopefully discontinue propofol, and at least give the patient a decent weaning trial or at least check weaning parameters before we proceed to weaning trial. Chest x-ray continues to show evidence of pneumonia mostly in the left lung and left lower lobe more specifically. Some pulmonary vascular congestion is noted with interstitial edema, small pleural effusion is also noted/left side. WBC count today is 12 hemoglobin 6.9 basic metabolic profile is normal bicarb is 25, BUN is 25 creatinine is improving down to 1.21 from 1.57 yesterday Patient was evaluated today on 11/15/2023, patient remains in the ICU, he was extubated yesterday, and his extubation was relatively uneventful. However the patient continues to have nasogastric tube in place, his pathology report came back showing non-Hodgkin's lymphoma, patient has gastric outlet obstruction, and the recommendation by GI is to consult surgery for a jejunostomy tube which is appropriate. Patient will be seen today by oncology and he will be seen by general surgery. In the meantime patient is comfortable, he is on 5 L nasal cannula he has LR running at 100 cc/h, he is remains on Zosyn for aspiration pneumonia remains on amiodarone which was started by cardiology for atrial fibrillation with RVR, presently in sinus rhythm. Cannot switch him to oral because of the fact that remains n.p.o., patient remains on TPN. WBC count is 10.7 hemoglobin 7.5 electrolytes are normal renal profile is normal, creatinine normalized to 0.96 Patient was evaluated today on 11/16/2023, remains in the ICU, on 5 L nasal cannula remains on amiodarone at 0.5 mg/min remains on LR at 100 cc/h, however his chest x-ray is showing some component of interstitial edema or could be findings related to his recent episode of aspiration/aspiration pneumonia, nonetheless the patient seems to be a bit symptomatic, he has intermittent cough and wheezing, I am recommending Lasix 40 mg IV push, cut down his IV fluid to 50 cc/h, continue Zosyn, patient will be placed on DuoNeb updrafts and on Solu- Medrol. Patient is scheduled to have jejunostomy-tube placement today. WBC count is 13 hemoglobin 7.7 basic metabolic profile is normal and renal profile is normal Patient was evaluated today on 11/17/2023, patient underwent uneventful placement of a jejunostomy tube yesterday, in the ICU on 5 L, patient is relatively stable, not in any distress, patient continues to have nasogastric tube in place although he did have a J-tube placed yesterday. Patient was seen by oncology for his non-Hodgkin's lymphoma involving the gastric outlet. Today's x-ray showed evidence of pneumonia/bilateral interstitial infiltrate/edema patient was given a dose of Lasix, I reminded the patient had an aspiration episode which was significant. And he required intubation mechanical ventilation for a few days.WBC count today is 9.1 hemoglobin 7.9 electrolytes are normal renal profile is normal hence I plan to transfer the patient out of the ICU to a cardiac floor. And hopefully discharge planning in the next 2 days for The patient was seen today November 18, 2023 in follow-up in the intensive care unit. He is currently sitting up in bed. Awake and alert in no acute distress. He is maintaining O2 saturations in the 90s on 5 L/min per nasal cannula. Glucose 177. Remains on DuoNeb inhalations and Solu-Medrol. Antibiotics in the form of Zosyn. He has a J-tube in place. He was initiated on vital AF 1.2 at 10 mL an hour with a goal of 82 mL/h The patient is seen today November 19, 2023 in follow-up in the intensive care unit. He is a regular medical floor overflow patient. He is currently sitting up in a chair. Awake and alert in no acute distress. He is maintaining O2 saturations in the 90s on 5 L/min per nasal cannula. No IV fluids. He denies any worsening shortness of breath, cough or congestion. He is having some issues with diarrhea. He remains on Zosyn. He is receiving vital AF at 55 mL/h with a goal of 82 mL/h. Glucose 161. Solu-Medrol, DuoNeb inhalations. The patient is seen today November 20, 2023 in follow-up on the regular medical floor. He is currently up in a chair at the bedside. Awake and alert in no acute distress. Denies any worsening shortness of breath, cough or congestion. He is maintaining O2 saturation in the 90s on 3 L/min per nasal cannula. He continues on Zosyn. Continues on bronchodilators and steroids. White count 12.3. Hemoglobin 9.0. Platelets 258. Glucose 168. He is not tolerating his tube feeds as he has developed diarrhea. C. difficile screen was negative. Abdominal series revealed cardiomegaly with left basilar acute infiltrate and/or atelectasis. Overall nonspecific bowel gas pattern. A small bowel obstruction needs to be considered. Progress note dated November 21, 2023. The patient is seen in room 517. The patient is currently on 3 L of oxygen. He continues on Zosyn. His biggest complaint has been abdominal discomfort and diarrhea. He did have a CT scan of the abdomen and pelvis. Current laboratory data includes a white count of 14.4, hemoglobin 8.8, hematocrit 28.7, and platelet count 229,000. Sodium 139, potassium 4.1, chlorides 103, CO2 30, BUN 42, creatinine 0.94. Glucose is 158. Calcium is 8.5. Progress note dated November 22, 2023. 73-year-old male seen in room 517. He currently is on 2 L of oxygen. Room air saturation was 89%. Chest CT shows bilateral patchy infiltrates. He continues on Zosyn. He is still not taking anything by mouth. No new laboratory data today other than a glucose of 138. Gram stain was negative. Progress note dated November 23, 2023. 73-year-old male seen in room 517. He is resting comfortably without complaints. He continues on saline at 10 cc an hour, tube feedings with Pivot at 20 cc an hour, Zosyn, and 2 L by nasal cannula. He has had an uneventful night. Laboratory data today includes a white count 14.5, hemoglobin 9.7, hematocrit 31.4, and a platelet count of 242,000. Sodium 138, potassium 3.7, chlorides 106, CO2 26, BUN 39, creatinine 0.95. Glucose is 181. Calcium is 8.5. Sputum sampling was negative. Progress note dated November 24, 2023. 73-year-old male who is seen in room 517. The patient has been having significant abdominal discomfort, and went for a evaluation, ordered by surgery today, to determine whether or not the feeding tube, was in proper position, and whether or not there is anything acutely going on in the abdomen. He had been having diarrhea. He is on 3 L of oxygen. He has been here for 12 days. This is a patient, that had a prior EGD, aspirated, because of gastric outlet obstruction, and was diagnosis of non-Hodgkin's lymphoma. He is currently on Zosyn, DuoNebs, and Solu-Medrol. He has been NPO. Chest x-ray showed a left lower lobe infiltrate. Abdominal x-ray showed multiple air-fluid levels. CT of the abdomen showed multiple dilated small bowel loops, consistent with obstruction, pneumoperitoneum, ascites, and cholelithiasis. White count was 14.1, hemoglobin 8.9, hematocrit 29.5, and platelet count was 255,000. Glucose was 143. 11/25/2023, the patient is being seen in the intensive care unit. The patient is critically ill, n.p.o., he has an NG tube in place. Following the NG tube insertion, there was a total of 2.0 L of output and the patient's J-tube was also draining approximately 200 cc over the past 8 hours. Continues to have abdominal pain which is rather diffuse and the patient has direct abdominal tenderness. CAT scan of the abdomen was noted and was consistent with small bowel obstruction. The patient has a stomach that was inflated and in the same time there were multiple loops of small bowel distended with fluid. This extended to the pelvis. J-tube with contrast nondilated small bowel loops within the mid abdomen. Additional loops of small bowel were seen that was dilated. There was some contrast in the right lower quadrant and contrast was also in the cecum. No transition point was identified. The dilated loops of the bowel appeared to be in the proximal jejunum and distal to the duodenum. General surgery is on the case the patient will be taken to the operating room for another exploratory laparotomy. Noted the CAT scan of the abdomen also showed pneumoperitoneum and small amount of ascites and cholelithiasis. Hemodynamically, the patient is currently on normal saline at rate of 75 cc an hour. He is hypotensive and is going to be started on pressors. He is on 4 L of oxygen by nasal cannula. He also has sustained acute kidney injury. Blood work from today shows a rise in the creatinine which is currently up to 2.5 with a BUN of 57. Serum bicarb is at 14 with an anion gap of 11. The patient WBC count is at 8.2 with a hemoglobin of 12.3 and a platelet count of 188. Chest x- ray from this morning is showing a right-sided port and a stable left lung airspace disease and an NG tube being in place. The patient remains on IV Zosyn. The patient is receiving Dilaudid for pain control. The patient remains on IV Solu-Medrol 60 mg every 6 hours. It was noted that the patient's surgical wound over the port has dehisced and there is some serous drainage and erythema at the incision site. Awake and alert and communicating. Family at the bedside. No apparent signs of respiratory distress at this point. 11/26/2023, the patient is being seen in follow-up. Events from yesterday was noted and the patient was taken to the operating room for exploratory laparotomy. The patient was found to have large amount of free fluid noted in the abdomen and there was significant contamination. There was perforation of the small bowel with the balloon of the previously inserted jejunostomy tube penetrating through the perforation. As such, the tube was removed, abdominal washout was done. Small bowel resection was done and the patient had a nodular jejunostomy tube inserted. Postop, the patient was extubated he was unable to tolerate extubation and the patient was kept intubated on mechanical ventilator and he was brought back to the intensive care unit. He is currently postop day #1 following his small bowel resection. Abdominal surgical wound site is dry clean and intact. This morning, the patient remains sedated on propofol which is currently running at 35 mcg/kg/min. He is on assist-control mode of mechanical ventilation at rate of 28, tidal volume of 550, FiO2 of 60% with a PEEP of 5. Blood gas from today shows a pH of 7.35 with a pCO2 44 and pO2 of 88. Chest x-ray shows adequate positioning of the orotracheal tube. The patient has a Mediport on the right and a subclavian triple-lumen catheter on the left and the patient has persistent bilateral pleural effusion and infiltrates in lung base bilaterally. Hemodynamically, the patient remains in shock. He has been on high-dose norepinephrine which is currently running at 0.28 mcg/kg/min and the patient is also on vasopressin at 0.03 units an hour. He is IV fluids are in the form of bicarb infusion running at rate of 150 cc an hour. He is in sinus tachycardia. NG tube output has been 250 cc over the past 8 hours and the output from the J-tube is minimal at this point in time. Urine output is quite diminished as the patient has also sustained acute kidney injury. Overall fluid balance is +4.9 L over the past 24 hours. The patient's white cell count of 5.7 with a hemoglobin 9.9 and platelet count of 172. BUN is 72 with a creatinine of 2.8 and sodium levels at 143. The calcium level is at 6.5. LFTs are normal. Triglyceride level is at 315. On 11/27/2023, the patient remains critically ill. Remains intubated and on mechanical ventilator, still awaiting shock which is essentially septic shock. Remains on propofol which is running at 50 mcg/kg/min. Remains on the mechanical ventilator, assist-control mode with rate of 28, tidal volume of 550 with an FiO2 of 60% with a PEEP of 5. Blood gas shows a pH of 7.29 with a pCO2 of 47 and pO2 of 78. The patient had a follow-up chest x-ray that showed lower lobe consolidation slightly worse on the right and the orotracheal tube is in a good location. Urine output is diminished in the order of 5 to 10 cc an hour and the patient is also developing progressive worsening renal function. Remains on normal citrate of 150 cc an hour and the patient was started on TPN which is running at 30 cc an hour. He has a triple-lumen catheter in his left subclavian. Overall fluid balance over the past 24 hours is +3.9 L. Output from the NG tube and the J-tube is minimal. Hemodynamically, he is hypotensive and norepinephrine running at 0.45 mcg/kg/min. Vasopressin is a physiologic dose. He received amiodarone and he remains on maintenance amiodarone of 0.5 mg /min and the patient continues to be in atrial fibrillation and is having episodes of tachycardia. The white cell count is at 13, hemoglobin 9.4 platelet count is pending. The patient's BUN is 83 with a creatinine of 3.7. Sodium is at 140 with a potassium level of 5.5 dropped down to 4.4 as the sample was hemolyzed. LFTs are normal. Abdominal wound is dry clean and intact. RAYA drainage is essentially serous at this point in time. Objective - Vital Signs Vital signs: Vital Signs Temp 98.7 F 11/27/23 04:00 Pulse 137 H 11/27/23 10:15 Resp 17 11/27/23 10:15 BP 125/71 11/27/23 10:00 Pulse Ox 98 11/27/23 10:15 FiO2 60 11/27/23 11:02 Intake & Output 11/26/23 11/27/23 11/27/23 18:59 06:59 18:59 Intake Total 3320.312 2544.179 1189.020 Output Total 830 1105 98 Balance 2490.312 8458.591 0199.020 Weight 90.2 kg 90.2 kg Intake: IV 2200 1970 890 0.9 KVO 70 40 Calcium Gluconate in NaCl 100 2 gm In Saline 1 100ml. bag @ 100 mls/hr IVPB ONCE ONE Rx#:[id number] Dextrose 5% in Water 1, 300 000 ml @ 150 mls/hr IV . Q7H40M [facility] with Sodium Bicarb (1 Meq/ml) 150 ml Rx#:[id number] Magnesium Sulfate-D5w Pmx 200 1 gm In Dextrose/Water 1 100ml.bag @ 100 mls/hr IVPB Q1H [facility] Rx#: [id number] Piperacillin-Tazobactam 3 200 100 .375 gm In Sodium Chloride 0.9% 100 ml @ 25 mls/hr IVPB Q8HR [facility] Rx# :[id number] Sodium Chloride 0.9% 1, 1500 1800 750 000 ml @ 150 mls/hr IV . Q6H40M [facility] Rx#:[id number] Intake, IV Titration 1120.312 574.179 299.020 Amount ACETAMINOPHEN IV (For NPO 100 ) 1,000 mg In Empty Bag 1 bag @ 400 mls/hr IVPB ONCE ONE Rx#:[id number] Amiodarone 450 mg In 161.948 Dextrose 5% in Water 250 ml @ 0.5 MG/MIN 16.667 mls/hr IV .Q15H [facility] Rx#: [id number] Calcium Gluconate in NaCl 90 30 1 gm In Saline 1 100ml. bag @ 100 mls/hr IVPB ONCE ONE Rx#:[id number] Norepinephrine 32 mg In 119.932 232.619 37.232 Sodium Chloride 0.9% 218 ml @ 0.03 MCG/KG/MIN 1. 097 mls/hr IV .Q24H [facility] Rx#:[id number] Vancomycin 1,500 mg In 500 Sodium Chloride 0.9% 500 ml 500 ml @ 167 mls/hr IVPB ONCE ONE Rx#: [id number] Vasopressin 20 unit In 50.796 50.49 Sodium Chloride 0.9% 50 ml @ 0.03 UNITS/MIN 4.59 mls/hr IV .Q11H7M [facility] Rx# :[id number] propofoL 1,000 mg In 259.584 261.07 99.84 Empty Bag 1 bag @ 20 MCG/ KG/MIN 9.36 mls/hr IV . [id number] [facility] Rx#:[id number] Output: Gastric Drainage 400 600 Drainage 150 255 Left Abdomen 20 Right Abdomen 150 235 Urine 280 250 98 Other: Voiding Method Indwelling Catheter Indwelling Catheter Indwelling Catheter # Voids 3 ABP, PAP, CO, CI - Last Documented Arterial Blood Pressure 155/81 - Exam No acute distress, sedated on propofol,, comfortable, intubated on the mechanical ventilator. The patient has an orotracheal and orogastric tube in place. HEENT examination is grossly unremarkable. Mucous membranes are moist. No oral lesions. The patient has a triple-lumen catheter in the left subclavian. Neck supple. Full range of motion. No adenopathy thyromegaly or neck vein distention. Cardiac exam revealed the PMI to be normally situated and sized. The rhythm was regular and no extrasystoles were noted during several minutes of auscultation. The first and second heart sounds were normal and physiologic splitting of the second heart sound was noted. There were no murmurs, rubs, clicks, or gallops. The patient is in sinus tachycardia. Lungs reveal mild scattered rhonchi. No wheezes or crackles. Breath sounds equal. Diminished breath sound lung base bilaterally. Abdomen distended without bowel sounds. J-tube is noted. Patient also has an NG tube in place. Mid abdominal wound which is dry clean and intact and the patient has absent bowel sounds. Extremities are intact. No cyanosis clubbing trace edema lower extremities bilaterally Skin is without rash or lesion. The wound at the Mediport site is dry and the area has been sutured Neurologic examination is brief but nonfocal. Currently sedated on propofol. - Labs CBC & Chem 7: 11/27/23 04:26 11/27/23 09:16 Labs: Abnormal Lab Results - Last 24 Hours (Table) 11/26/23 11/26/23 11/26/23 Range/Units 12:05 17:10 23:50 WBC (3.8-10.6) k/uL RBC (4.30-5.90) m/uL Hgb (13.0-17.5) gm/dL Hct (39.0-53.0) % MCHC (31.0-37.0) g/dL RDW (11.5-15.5) % Neutrophils # (Manual) (1.3-7.7) k/uL Lymphocytes # (Manual) (1.0-4.8) k/uL Metamyelocytes # (Man) (0) k/uL Nucleated RBCs (0-0) /100 WBC ABG pH (7.35-7.45) ABG pO2 (83-108) mmHg ABG HCO3 (21-25) mmol/L Hemoglobin (13.0-17.5) gm/dL Potassium (3.5-5.1) mmol/L Chloride (98-107) mmol/L Carbon Dioxide (22-30) mmol/L BUN (9-20) mg/dL Creatinine (0.66-1.25) mg/dL Glucose (74-99) mg/dL POC Glucose (mg/dL) 208 H 261 H 294 H (70-110) mg/dL Calcium (8.4-10.2) mg/dL Phosphorus (2.5-4.5) mg/dL AST (17-59) U/L Total Protein (6.3-8.2) g/dL Albumin (3.5-5.0) g/dL 11/27/23 11/27/23 11/27/23 Range/Units 04:26 04:26 05:05 WBC 13.0 H (3.8-10.6) k/uL RBC 3.33 L (4.30-5.90) m/uL Hgb 9.4 L (13.0-17.5) gm/dL Hct 30.6 L (39.0-53.0) % MCHC 30.8 L (31.0-37.0) g/dL RDW 19.4 H (11.5-15.5) % Neutrophils # (Manual) 12.00 H (1.3-7.7) k/uL Lymphocytes # (Manual) 0.26 L (1.0-4.8) k/uL Metamyelocytes # (Man) 0.13 H (0) k/uL Nucleated RBCs 1 H (0-0) /100 WBC ABG pH 7.29 L (7.35-7.45) ABG pO2 78 L (83-108) mmHg ABG HCO3 20 L (21-25) mmol/L Hemoglobin 9.3 L (13.0-17.5) gm/dL Potassium 5.5 H (3.5-5.1) mmol/L Chloride 111 H (98-107) mmol/L Carbon Dioxide 19 L (22-30) mmol/L BUN 83 H (9-20) mg/dL Creatinine 3.71 H (0.66-1.25) mg/dL Glucose 280 H (74-99) mg/dL POC Glucose (mg/dL) (70-110) mg/dL Calcium 6.1 L* (8.4-10.2) mg/dL Phosphorus 5.1 H (2.5-4.5) mg/dL AST 77 H (17-59) U/L Total Protein 4.7 L (6.3-8.2) g/dL Albumin 2.1 L (3.5-5.0) g/dL Microbiology - Last 24 Hours (Table) 11/26/23 00:30 Gram Stain - Preliminary Sputum Sputum Culture - Preliminary Gram Neg Bacilli Gram Neg Bacilli#2 Assessment and Plan Plan: Acute hypoxic respiratory failure and the patient failed extubation following exploratory laparotomy. He had to be reintubated. The patient has bilateral pleural effusion and infiltrates in lung base bilaterally. Blood gas was noted. The patient chest x-ray from today shows lower lobe consolidation slightly worse on the right. Remains on broad-spectrum antibiotics. 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 Patient also has a J-tube in place. Both of the tubes are connected to suction and the patient continues to have abdominal pain with ongoing concern of a small bowel obstruction and the patient scheduled to undergo elective nephrectomy today. Small bowel perforation with abdominal contamination. The patient is status pos t expiratory laparotomy and small bowel resection and insertion of another jejunostomy tube. The patient is postop day # 2 Peritonitis secondary to above Septic shock secondary to above, currently on high-dose pressors including norepinephrine and vasopressin. He is in a positive fluid balance. Atrial fibrillation with rapid medical response, currently on amiodarone drip at 0.5 mg/min. Remains tachycardic. Acute kidney injury, secondary to above.. Patient remains oliguric Acute hypoxic respiratory failure requiring intubation mechanical ventilation secondary to aspiration during EGD on 11/12/2023. Patient was extubated on 11/14/2023. The patient was reintubated on 11/25/2023 following his abdominal surgery. Acute aspiration pneumonia Acute aspiration during upper endoscopy most likely secondary to gastric outlet obstruction secondary to non-Hodgkin's lymphoma. weight loss most likely secondary non-Hodgkin's lymphoma involving the stomach. Plan: Continue ventilator support, no change in the mechanical ventilator for today Keep the patient sedated on propofol and titrated dose for adequate sedation Keep the patient n.p.o. Keep the NG tube to suction as well as the J-tube TPN was started normal saline at rate of 150 cc an hour Continue IV Zosyn and vancomycin Continue pressors and the patient is currently on a combination of norepinephri ne and vasopressin. He has been adequately resuscitated IV fluids. He is developing some third spacing and edema. Atrial fibrillation is an ongoing issue. The patient is maintained on amiodarone 0.5 mg/min. Will try digoxin 0.5 mg x 1. Will use esmolol drip if needed. Give the patient dose of Lasix 80 mg IV x 1 Nephrology consultation Monitor renal function Avoid nephrotoxic agents We will continue to follow. Condition is critical. Had a lengthy discussion with the family at the bedside. General surgery is on the case. Oncology on the case. This evaluation was done more than 30 minutes. Time with Patient: Greater than 30
[2023-11-27] MEDS: SODIUM BICARB 8.4% 50 ML SYR (1 MEQ/ML) IV STA ×2 (11:17→11:33)
[2023-11-27] MEDS: DIGOXIN 250 MCG/ML 2 ML AMP IVP STA (11:18)
--- NOTE | 2023-11-27 11:29 | P.PN ---
Subjective Patient is seen in follow-up for acute kidney injury. Patient underwent exploratory laparotomy with small bowel obstruction NG tube replacement Sep tember 2023. Remains on Levophed and vasopressin. Intubated. Receiving TPN. On amiodarone drip for A-fib. Vital signs unstable -patient in A-fib and hypotensive on vasopressor support. General: Resting in bed. HEENT: Intubated. LUNGS: Scattered rhonchi. HEART: Irregular rate and rhythm. ABDOMEN: Abdominal dressing noted. No drainage. EXTREMITITES: No edema. Objective - Vital Signs Vital signs: Vital Signs Temp 98.7 F 11/27/23 04:00 Pulse 137 H 11/27/23 10:15 Resp 17 11/27/23 10:15 BP 125/71 11/27/23 10:00 Pulse Ox 98 11/27/23 10:15 FiO2 60 11/27/23 11:02 Intake & Output 11/26/23 11/27/23 11/27/23 18:59 06:59 18:59 Intake Total 3320.312 2544.179 1239.202 Output Total 830 1105 98 Balance 2490.312 2386.709 9177.202 Weight 90.2 kg 90.2 kg Intake: IV 2200 1970 890 0.9 KVO 70 40 Calcium Gluconate in NaCl 100 2 gm In Saline 1 100ml. bag @ 100 mls/hr IVPB ONCE ONE Rx#:[id number] Dextrose 5% in Water 1, 300 000 ml @ 150 mls/hr IV . Q7H40M [facility] with Sodium Bicarb (1 Meq/ml) 150 ml Rx#:[id number] Magnesium Sulfate-D5w Pmx 200 1 gm In Dextrose/Water 1 100ml.bag @ 100 mls/hr IVPB Q1H [facility] Rx#: [id number] Piperacillin-Tazobactam 3 200 100 .375 gm In Sodium Chloride 0.9% 100 ml @ 25 mls/hr IVPB Q8HR [facility] Rx# :[id number] Sodium Chloride 0.9% 1, 1500 1800 750 000 ml @ 150 mls/hr IV . Q6H40M [facility] Rx#:[id number] Intake, IV Titration 1120.312 574.179 349.202 Amount ACETAMINOPHEN IV (For NPO 100 ) 1,000 mg In Empty Bag 1 bag @ 400 mls/hr IVPB ONCE ONE Rx#:[id number] Amiodarone 450 mg In 161.948 Dextrose 5% in Water 250 ml @ 0.5 MG/MIN 16.667 mls/hr IV .Q15H [facility] Rx#: [id number] Calcium Gluconate in NaCl 90 30 1 gm In Saline 1 100ml. bag @ 100 mls/hr IVPB ONCE ONE Rx#:[id number] Norepinephrine 32 mg In 119.932 232.619 87.414 Sodium Chloride 0.9% 218 ml @ 0.03 MCG/KG/MIN 1. 097 mls/hr IV .Q24H [facility] Rx#:[id number] Vancomycin 1,500 mg In 500 Sodium Chloride 0.9% 500 ml 500 ml @ 167 mls/hr IVPB ONCE ONE Rx#: [id number] Vasopressin 20 unit In 50.796 50.49 Sodium Chloride 0.9% 50 ml @ 0.03 UNITS/MIN 4.59 mls/hr IV .Q11H7M [facility] Rx# :[id number] propofoL 1,000 mg In 259.584 261.07 99.84 Empty Bag 1 bag @ 20 MCG/ KG/MIN 9.36 mls/hr IV . [id number] [facility] Rx#:[id number] Output: Gastric Drainage 400 600 Drainage 150 255 Left Abdomen 20 Right Abdomen 150 235 Urine 280 250 98 Other: Voiding Method Indwelling Catheter Indwelling Catheter Indwelling Catheter # Voids 3 ABP, PAP, CO, CI - Last Documented Arterial Blood Pressure 155/81 - Labs CBC & Chem 7: 11/27/23 04:26 11/27/23 09:16 Labs: Abnormal Lab Results - Last 24 Hours (Table) 11/26/23 11/26/23 11/26/23 Range/Units 12:05 17:10 23:50 WBC (3.8-10.6) k/uL RBC (4.30-5.90) m/uL Hgb (13.0-17.5) gm/dL Hct (39.0-53.0) % MCHC (31.0-37.0) g/dL RDW (11.5-15.5) % Neutrophils # (Manual) (1.3-7.7) k/uL Lymphocytes # (Manual) (1.0-4.8) k/uL Metamyelocytes # (Man) (0) k/uL Nucleated RBCs (0-0) /100 WBC ABG pH (7.35-7.45) ABG pO2 (83-108) mmHg ABG HCO3 (21-25) mmol/L Hemoglobin (13.0-17.5) gm/dL Potassium (3.5-5.1) mmol/L Chloride (98-107) mmol/L Carbon Dioxide (22-30) mmol/L BUN (9-20) mg/dL Creatinine (0.66-1.25) mg/dL Glucose (74-99) mg/dL POC Glucose (mg/dL) 208 H 261 H 294 H (70-110) mg/dL Calcium (8.4-10.2) mg/dL Phosphorus (2.5-4.5) mg/dL AST (17-59) U/L Total Protein (6.3-8.2) g/dL Albumin (3.5-5.0) g/dL 11/27/23 11/27/23 11/27/23 Range/Units 04:26 04:26 05:05 WBC 13.0 H (3.8-10.6) k/uL RBC 3.33 L (4.30-5.90) m/uL Hgb 9.4 L (13.0-17.5) gm/dL Hct 30.6 L (39.0-53.0) % MCHC 30.8 L (31.0-37.0) g/dL RDW 19.4 H (11.5-15.5) % Neutrophils # (Manual) 12.00 H (1.3-7.7) k/uL Lymphocytes # (Manual) 0.26 L (1.0-4.8) k/uL Metamyelocytes # (Man) 0.13 H (0) k/uL Nucleated RBCs 1 H (0-0) /100 WBC ABG pH 7.29 L (7.35-7.45) ABG pO2 78 L (83-108) mmHg ABG HCO3 20 L (21-25) mmol/L Hemoglobin 9.3 L (13.0-17.5) gm/dL Potassium 5.5 H (3.5-5.1) mmol/L Chloride 111 H (98-107) mmol/L Carbon Dioxide 19 L (22-30) mmol/L BUN 83 H (9-20) mg/dL Creatinine 3.71 H (0.66-1.25) mg/dL Glucose 280 H (74-99) mg/dL POC Glucose (mg/dL) (70-110) mg/dL Calcium 6.1 L* (8.4-10.2) mg/dL Phosphorus 5.1 H (2.5-4.5) mg/dL AST 77 H (17-59) U/L Total Protein 4.7 L (6.3-8.2) g/dL Albumin 2.1 L (3.5-5.0) g/dL Microbiology - Last 24 Hours (Table) 11/26/23 00:30 Gram Stain - Preliminary Sputum Sputum Culture - Preliminary Gram Neg Bacilli Gram Neg Bacilli#2 Assessment and Plan Plan: Assessment: 1. Acute kidney injury secondary to ATN secondary to septic shock. Creatinine 0.86 on admission and is 2.85 today. Urine output 15 to 20 cc an hour. UA fairly benign. No hydronephrosis noted on imaging. 2. Perforated small bowel status post exploratory laparotomy with abdominal washout, small bowel resection and J-tube replacement November 25, 2023. 3. A-fib with RVR. On amiodarone drip. 4. Recently diagnosed gastric B-cell lymphoma. 5. Septic shock. Likely abdominal source. On vasopressors and IV antibiotics. 6. Hypocalcemia secondary to acute kidney injury. Plan: Maintain IV fluids. Receiving TPN per surgery. Challenge with Lasix 80 mg IV once today. Replace calcium. Avoid nephrotoxins. Continue to monitor renal function and urine output. Preserved EF noted on echocardiogram. Continue to assess daily for need for renal replacement therapy. No urgency at this time. Initial potassium sample was hemolyzed. Repeat normal. Currently hemodynamically unstable. Wean FiO2 and vasopressors. Case discussed at length with patient's family present at bedside.
[2023-11-27 11:34] LABS: Glucose,Whole Blood 289 mg/dL (70-110)
[2023-11-27] MEDS: VANCOMYCIN 1,500 MG in SODIUM CHLORIDE 0.9% 500 ML 500 ML IVPB ONE (12:05)
[2023-11-27] MEDS: ACETAMINOPHEN IV (For NPO) 1,000 MG in EMPTY BAG 1 BAG IVPB SCH (12:25)
[2023-11-27] MEDS ORDERED: ESMOLOL IN SODIUM CHLORIDE PMX 2.5 GM in SALINE 1 250ML.BAG IV SCH (12:30)
--- NOTE | 2023-11-27 12:41 | P.PN ---
Subjective Progress Note Date: 11/27/23 Patient seen and examined at bedside. Remains intubated and sedated. Continues atrial fibrillation with RVR. He is net +3.9 L over the past day. Urine output is minimal. RAYA drain with minimal serous output. Nasogastric tube in place. Requiring Levophed and vasopressin. Objective - Vital Signs Vital signs: Vital Signs Temp 98.7 F 11/27/23 04:00 Pulse 137 H 11/27/23 10:15 Resp 17 11/27/23 10:15 BP 125/71 11/27/23 10:00 Pulse Ox 98 11/27/23 10:15 FiO2 60 11/27/23 11:02 Intake & Output 11/26/23 11/27/23 11/27/23 18:59 06:59 18:59 Intake Total 3320.312 2544.179 1254.821 Output Total 830 1105 98 Balance 2490.312 9928.103 7679.821 Weight 90.2 kg 90.2 kg Intake: IV 2200 1970 890 0.9 KVO 70 40 Calcium Gluconate in NaCl 100 2 gm In Saline 1 100ml. bag @ 100 mls/hr IVPB ONCE ONE Rx#:[id number] Dextrose 5% in Water 1, 300 000 ml @ 150 mls/hr IV . Q7H40M [facility] with Sodium Bicarb (1 Meq/ml) 150 ml Rx#:[id number] Magnesium Sulfate-D5w Pmx 200 1 gm In Dextrose/Water 1 100ml.bag @ 100 mls/hr IVPB Q1H [facility] Rx#: [id number] Piperacillin-Tazobactam 3 200 100 .375 gm In Sodium Chloride 0.9% 100 ml @ 25 mls/hr IVPB Q8HR [facility] Rx# :[id number] Sodium Chloride 0.9% 1, 1500 1800 750 000 ml @ 150 mls/hr IV . Q6H40M [facility] Rx#:[id number] Intake, IV Titration 1120.312 574.179 364.821 Amount ACETAMINOPHEN IV (For NPO 100 ) 1,000 mg In Empty Bag 1 bag @ 400 mls/hr IVPB ONCE ONE Rx#:[id number] Amiodarone 450 mg In 161.948 Dextrose 5% in Water 250 ml @ 0.5 MG/MIN 16.667 mls/hr IV .Q15H [facility] Rx#: [id number] Calcium Gluconate in NaCl 90 30 1 gm In Saline 1 100ml. bag @ 100 mls/hr IVPB ONCE ONE Rx#:[id number] Norepinephrine 32 mg In 119.932 232.619 103.033 Sodium Chloride 0.9% 218 ml @ 0.03 MCG/KG/MIN 1. 097 mls/hr IV .Q24H [facility] Rx#:[id number] Vancomycin 1,500 mg In 500 Sodium Chloride 0.9% 500 ml 500 ml @ 167 mls/hr IVPB ONCE ONE Rx#: [id number] Vasopressin 20 unit In 50.796 50.49 Sodium Chloride 0.9% 50 ml @ 0.03 UNITS/MIN 4.59 mls/hr IV .Q11H7M [facility] Rx# :[id number] propofoL 1,000 mg In 259.584 261.07 99.84 Empty Bag 1 bag @ 20 MCG/ KG/MIN 9.36 mls/hr IV . [id number] [facility] Rx#:[id number] Output: Gastric Drainage 400 600 Drainage 150 255 Left Abdomen 20 Right Abdomen 150 235 Urine 280 250 98 Other: Voiding Method Indwelling Catheter Indwelling Catheter Indwelling Catheter # Voids 3 ABP, PAP, CO, CI - Last Documented Arterial Blood Pressure 155/81 - Constitutional Constitutional Comment(s): Vented, sedated - Respiratory Details: Vented, tolerating mechanical ventilation - Gastrointestinal Gastrointestinal Comment(s): Soft, incision site appears clean, J-tube site with no drainage. - Labs CBC & Chem 7: 11/27/23 04:26 11/27/23 09:16 Labs: Abnormal Lab Results - Last 24 Hours (Table) 11/26/23 11/26/23 11/27/23 Range/Units 17:10 23:50 04:26 WBC (3.8-10.6) k/uL RBC (4.30-5.90) m/uL Hgb (13.0-17.5) gm/dL Hct (39.0-53.0) % MCHC (31.0-37.0) g/dL RDW (11.5-15.5) % Neutrophils # (Manual) (1.3-7.7) k/uL Lymphocytes # (Manual) (1.0-4.8) k/uL Metamyelocytes # (Man) (0) k/uL Nucleated RBCs (0-0) /100 WBC ABG pH (7.35-7.45) ABG pO2 (83-108) mmHg ABG HCO3 (21-25) mmol/L Hemoglobin (13.0-17.5) gm/dL Potassium 5.5 H (3.5-5.1) mmol/L Chloride 111 H (98-107) mmol/L Carbon Dioxide 19 L (22-30) mmol/L BUN 83 H (9-20) mg/dL Creatinine 3.71 H (0.66-1.25) mg/dL Glucose 280 H (74-99) mg/dL POC Glucose (mg/dL) 261 H 294 H (70-110) mg/dL Calcium 6.1 L* (8.4-10.2) mg/dL Phosphorus 5.1 H (2.5-4.5) mg/dL AST 77 H (17-59) U/L Total Protein 4.7 L (6.3-8.2) g/dL Albumin 2.1 L (3.5-5.0) g/dL 11/27/23 11/27/23 11/27/23 Range/Units 04:26 05:05 11:32 WBC 13.0 H (3.8-10.6) k/uL RBC 3.33 L (4.30-5.90) m/uL Hgb 9.4 L (13.0-17.5) gm/dL Hct 30.6 L (39.0-53.0) % MCHC 30.8 L (31.0-37.0) g/dL RDW 19.4 H (11.5-15.5) % Neutrophils # (Manual) 12.00 H (1.3-7.7) k/uL Lymphocytes # (Manual) 0.26 L (1.0-4.8) k/uL Metamyelocytes # (Man) 0.13 H (0) k/uL Nucleated RBCs 1 H (0-0) /100 WBC ABG pH 7.29 L (7.35-7.45) ABG pO2 78 L (83-108) mmHg ABG HCO3 20 L (21-25) mmol/L Hemoglobin 9.3 L (13.0-17.5) gm/dL Potassium (3.5-5.1) mmol/L Chloride (98-107) mmol/L Carbon Dioxide (22-30) mmol/L BUN (9-20) mg/dL Creatinine (0.66-1.25) mg/dL Glucose (74-99) mg/dL POC Glucose (mg/dL) 289 H (70-110) mg/dL Calcium (8.4-10.2) mg/dL Phosphorus (2.5-4.5) mg/dL AST (17-59) U/L Total Protein (6.3-8.2) g/dL Albumin (3.5-5.0) g/dL Microbiology - Last 24 Hours (Table) 11/26/23 00:30 Gram Stain - Preliminary Sputum Sputum Culture - Preliminary Gram Neg Bacilli Gram Neg Bacilli#2 Assessment and Plan Plan: 73-year-old male with 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 Status post J-tube placement and required revision. Continues to require pressor therapy secondary to shock. Sputum growing gram- negative bacilli per microbiology. Awaiting blood cultures. Continue IV antibiotics. Case discussed in depth with family at bedside. Continue ICU care.
--- NOTE | 2023-11-27 13:09 | P.PN ---
Subjective Progress Note Date: 11/27/23 Principal diagnosis: DLBCL Pt is sedated and ventilated. S/P bowel resection for perforation. He is on TPN at this time. Objective - Vital Signs Vital signs: Vital Signs Temp 98.7 F 11/27/23 04:00 Pulse 137 H 11/27/23 10:15 Resp 17 11/27/23 10:15 BP 125/71 11/27/23 10:00 Pulse Ox 98 11/27/23 10:15 FiO2 60 11/27/23 11:02 Intake & Output 11/26/23 11/27/23 11/27/23 18:59 06:59 18:59 Intake Total 3320.312 2544.179 1239.202 Output Total 830 1105 98 Balance 2490.312 6715.003 6620.202 Weight 90.2 kg 90.2 kg Intake: IV 2200 1970 890 0.9 KVO 70 40 Calcium Gluconate in NaCl 100 2 gm In Saline 1 100ml. bag @ 100 mls/hr IVPB ONCE ONE Rx#:[id number] Dextrose 5% in Water 1, 300 000 ml @ 150 mls/hr IV . Q7H40M [facility] with Sodium Bicarb (1 Meq/ml) 150 ml Rx#:[id number] Magnesium Sulfate-D5w Pmx 200 1 gm In Dextrose/Water 1 100ml.bag @ 100 mls/hr IVPB Q1H [facility] Rx#: [id number] Piperacillin-Tazobactam 3 200 100 .375 gm In Sodium Chloride 0.9% 100 ml @ 25 mls/hr IVPB Q8HR [facility] Rx# :[id number] Sodium Chloride 0.9% 1, 1500 1800 750 000 ml @ 150 mls/hr IV . Q6H40M [facility] Rx#:[id number] Intake, IV Titration 1120.312 574.179 349.202 Amount ACETAMINOPHEN IV (For NPO 100 ) 1,000 mg In Empty Bag 1 bag @ 400 mls/hr IVPB ONCE ONE Rx#:[id number] Amiodarone 450 mg In 161.948 Dextrose 5% in Water 250 ml @ 0.5 MG/MIN 16.667 mls/hr IV .Q15H [facility] Rx#: [id number] Calcium Gluconate in NaCl 90 30 1 gm In Saline 1 100ml. bag @ 100 mls/hr IVPB ONCE ONE Rx#:[id number] Norepinephrine 32 mg In 119.932 232.619 87.414 Sodium Chloride 0.9% 218 ml @ 0.03 MCG/KG/MIN 1. 097 mls/hr IV .Q24H [facility] Rx#:[id number] Vancomycin 1,500 mg In 500 Sodium Chloride 0.9% 500 ml 500 ml @ 167 mls/hr IVPB ONCE ONE Rx#: [id number] Vasopressin 20 unit In 50.796 50.49 Sodium Chloride 0.9% 50 ml @ 0.03 UNITS/MIN 4.59 mls/hr IV .Q11H7M [facility] Rx# :[id number] propofoL 1,000 mg In 259.584 261.07 99.84 Empty Bag 1 bag @ 20 MCG/ KG/MIN 9.36 mls/hr IV . [id number] [facility] Rx#:[id number] Output: Gastric Drainage 400 600 Drainage 150 255 Left Abdomen 20 Right Abdomen 150 235 Urine 280 250 98 Other: Voiding Method Indwelling Catheter Indwelling Catheter Indwelling Catheter # Voids 3 ABP, PAP, CO, CI - Last Documented Arterial Blood Pressure 155/81 - Constitutional General appearance: Present: average body habitus, no acute distress - Respiratory Respiratory: bilateral: other (vent) - Cardiovascular Details: tachycardia - Psychiatric Psychiatric: Absent: A&O x's 3, appropriate affect, intact judgment & insight - Labs CBC & Chem 7: 11/27/23 04:26 11/27/23 09:16 Labs: Abnormal Lab Results - Last 24 Hours (Table) 11/26/23 11/26/23 11/26/23 Range/Units 12:05 17:10 23:50 WBC (3.8-10.6) k/uL RBC (4.30-5.90) m/uL Hgb (13.0-17.5) gm/dL Hct (39.0-53.0) % MCHC (31.0-37.0) g/dL RDW (11.5-15.5) % Neutrophils # (Manual) (1.3-7.7) k/uL Lymphocytes # (Manual) (1.0-4.8) k/uL Metamyelocytes # (Man) (0) k/uL Nucleated RBCs (0-0) /100 WBC ABG pH (7.35-7.45) ABG pO2 (83-108) mmHg ABG HCO3 (21-25) mmol/L Hemoglobin (13.0-17.5) gm/dL Potassium (3.5-5.1) mmol/L Chloride (98-107) mmol/L Carbon Dioxide (22-30) mmol/L BUN (9-20) mg/dL Creatinine (0.66-1.25) mg/dL Glucose (74-99) mg/dL POC Glucose (mg/dL) 208 H 261 H 294 H (70-110) mg/dL Calcium (8.4-10.2) mg/dL Phosphorus (2.5-4.5) mg/dL AST (17-59) U/L Total Protein (6.3-8.2) g/dL Albumin (3.5-5.0) g/dL 11/27/23 11/27/23 11/27/23 Range/Units 04:26 04:26 05:05 WBC 13.0 H (3.8-10.6) k/uL RBC 3.33 L (4.30-5.90) m/uL Hgb 9.4 L (13.0-17.5) gm/dL Hct 30.6 L (39.0-53.0) % MCHC 30.8 L (31.0-37.0) g/dL RDW 19.4 H (11.5-15.5) % Neutrophils # (Manual) 12.00 H (1.3-7.7) k/uL Lymphocytes # (Manual) 0.26 L (1.0-4.8) k/uL Metamyelocytes # (Man) 0.13 H (0) k/uL Nucleated RBCs 1 H (0-0) /100 WBC ABG pH 7.29 L (7.35-7.45) ABG pO2 78 L (83-108) mmHg ABG HCO3 20 L (21-25) mmol/L Hemoglobin 9.3 L (13.0-17.5) gm/dL Potassium 5.5 H (3.5-5.1) mmol/L Chloride 111 H (98-107) mmol/L Carbon Dioxide 19 L (22-30) mmol/L BUN 83 H (9-20) mg/dL Creatinine 3.71 H (0.66-1.25) mg/dL Glucose 280 H (74-99) mg/dL POC Glucose (mg/dL) (70-110) mg/dL Calcium 6.1 L* (8.4-10.2) mg/dL Phosphorus 5.1 H (2.5-4.5) mg/dL AST 77 H (17-59) U/L Total Protein 4.7 L (6.3-8.2) g/dL Albumin 2.1 L (3.5-5.0) g/dL 11/27/23 Range/Units 11:32 WBC (3.8-10.6) k/uL RBC (4.30-5.90) m/uL Hgb (13.0-17.5) gm/dL Hct (39.0-53.0) % MCHC (31.0-37.0) g/dL RDW (11.5-15.5) % Neutrophils # (Manual) (1.3-7.7) k/uL Lymphocytes # (Manual) (1.0-4.8) k/uL Metamyelocytes # (Man) (0) k/uL Nucleated RBCs (0-0) /100 WBC ABG pH (7.35-7.45) ABG pO2 (83-108) mmHg ABG HCO3 (21-25) mmol/L Hemoglobin (13.0-17.5) gm/dL Potassium (3.5-5.1) mmol/L Chloride (98-107) mmol/L Carbon Dioxide (22-30) mmol/L BUN (9-20) mg/dL Creatinine (0.66-1.25) mg/dL Glucose (74-99) mg/dL POC Glucose (mg/dL) 289 H (70-110) mg/dL Calcium (8.4-10.2) mg/dL Phosphorus (2.5-4.5) mg/dL AST (17-59) U/L Total Protein (6.3-8.2) g/dL Albumin (3.5-5.0) g/dL Microbiology - Last 24 Hours (Table) 11/26/23 00:30 Gram Stain - Preliminary Sputum Sputum Culture - Preliminary Gram Neg Bacilli Gram Neg Bacilli#2 Assessment and Plan (1) Large B-cell lymphoma Current Visit: Yes Status: Acute Priority: High Code(s): C85.10 - UNSPECIFIED B-CELL LYMPHOMA, UNSPECIFIED SITE SNOMED Code(s): 202421982 (2) Iron deficiency anemia Current Visit: Yes Status: Acute Priority: High Code(s): D50.9 - IRON DEFICIENCY ANEMIA, UNSPECIFIED SNOMED Code(s): 51365783 Plan: DLBCL of GI tract -new diagnosis -MYC +, BCL2 & 6 neg-not dbl or triple hit. Reviewed results with the family at the bedside -Family is aware that treatment for lymphoma would not begin until patient is healed adequately from surgery and been rehabilitated to at least a performance status of 1. [place] -Suspect 2/2 to chronic GI losses, malabsorption. -s/p 4 IV iron infusions -Hgb currently stable Perforated bowel -s/p resection and adjustment of the tube -Perforation at the site of balloon for the j-tube. Reviewed concern with the patient family that possibly lymphoma infiltrating the bowel and making the tissue more friable could have contributed to the perforation. Currently pending pathology results from resection. Will update the family on the findings of that pathology. Multiple family member's questions were answered to the best of my ability Time with Patient: Greater than 30
--- NOTE | 2023-11-27 15:08 | P.PN ---
Progress Note - Text Progress Note Date: 11/27/23 Chief Complaint: Aspirated This is a 73-year-old patient, follows with Dr. Patricia Deal. Patient was seen this morning in the ICU. Patient's and daughter at the bedside. History obtained predominantly by the . Patient been having trouble with his stomach symptoms for close to 8 months. Patient underwent EGD by Dr. Sahara Cheng yesterday. Patient was found to have ulcerated around the antrum and obstruction to the pylorus. A lot of retained food was found. Patient aspirated. Had to be intubated and brought to the ICU. On a Levophed drip. FiO2 50 and a PEEP of 6. Patient had been losing weight lost about 25 pounds. Previously has a history of mitral valve prolapse. November 13: ICU. Patient remains on Precedex drip and propofol drip. Did not do well attempted extubation yesterday. Patient been off Levophed. NG tube to suction. Spoke to patient's and son at the bedside. Biopsy results awaited. Hemoglobin dropped to 6.9 this morning. Get a unit of blood. November 14: ICU. Up in a chair. Extubated yesterday. NG tube to suction. at the bedside. 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 Oncology was consulted. They have ordered a port. Results discussed with Dr. Sahara Cheng. General surgery was consulted for J-tube placement. Discussed with at the bedside. Patient getting IV fluids, IV Zosyn,. Patient has been on IV amiodarone for A-fib-back in sinus rhythm. Multiple PACs. Did receive unit of blood yesterday. Also IV ferric gluconate. November 15: ICU. Patient earlier today underwent jejunostomy tube placement and a port placement. Patient awake. Answering questions. NG tube to suction present. Updated patient's . Patient remains on IV amiodarone and IV Zosyn. November 16: ICU. Up in the chair. NG tube present but not to suction. Trickle feeding through the jejunostomy tube should be started today. Dietitian has been on board. IV Zosyn to continue. Patient's and his sister at the bedside. Discussed. Also spoke with Dr. Serna. Given patient has no other predisposing cardiac factors for the A-fib except acute illness. His LV function is normal. Left atrium is normal. He has already been loaded with IV amiodarone. Will switch him to oral Lopressor 12.5 twice daily. Hence will DC amiodarone. Patient yesterday had wheezing was put on bronchodilators steroids per pulmonary. November 17: Propped up in bed. NG tube was discontinued. Sinus rhythm. Remains NPO. Getting G-tube feeding at 40 cc an hour. Dietitian following. Get arrangements done for DC home tomorrow including tube feeding. Increase activity discussed with patient and elder daughter at the bedside. Still requiring oxygen. Incentive spirometry. November 18: Patient up in recliner. Earlier today spoke to social scientist David. Informed patient is rather weak and will be going to the [facility]. Looking at authorization. Denae came to the room and spoke to patient his and his daughter. They are very keen to take the patient home as 3 daughters all nurses and they will take care of him at home. Patient earlier today to abdominal cramping and some loose stools.'s tube feeding was held. Told the nurse to start back at the rate of 40 cc an hour. He was before the getting it at 55 cc an hour. Incentive spirometry was again emphasized. Patient remains on 4 L of oxygen. November 19: I saw the patient this morning. Hence I am in the evening. Morning was sitting with his sons. Has some edema. Lungs had crackles I gave him 40 mg of Lasix. He did make good urine. Tube feeding was held from the previous evening of because of abdominal cramping. Acute abdominal series showed nonspecific bowel gas pattern and SBO to be ruled out. Family and patient was updated. Told him discharge will depend on day by day. Later this afternoon CT scanAnd abdomen pelvis done. Showed small bowel to be 3 point centimeter dilated. Some anasarca. Gastric findings. Gallstones. Later spoke to Dr. Irby from general surgery. They will further review and decide about further plan of action. Will give further dose of IV Lasix because of fluid overload from likely hypoalbuminemia and IV fluids previously received. Patient may take his pills by mouth. Total time spent today about 1 hour with over 40 minutes of discussion. Patient did state his breathing is better after Lasix this morning. November 20: Saw the patient this morning. was present. Patient received 2 more doses of Lasix. Diuresed well. Breathing much better. Lungs are sounding better. Discussed with Dr. Zepeda other surgeon. He is taking 3 cc out of the balloon and the gastrostomy tube. Started trickle feeding at 5 cc an hour. Will see how this does. Later in the day ran into the and the daughter again. Did update them on the same. Dilaudid was discontinued yesterday but morphine was ordered by surgery for patient having pain. Concerns about GI issues with that we will DC the morphine. As family does not want the same. November 21: Patient reclining bed. Tired. Several family members at the bedside. Including his and eldest daughter. Patient started on trickle feed yesterday at 5 cc an hour. This morning he has been on 10 cc an hour. Still having some loose stools. C. difficile was ordered. Patient on 2 L of nasal cannula. Has diuresed well. Will give an additional dose of Lasix today. If C. difficile is negative and the diarrhea is from the tube feedings we may have to use a fecal management system to keep him comfortable. Otherwise patient remains NPO. Dietitian is following the patient. Care was discussed length with patient the and daughter at the bedside. Questions answered. Liquid Tylenol has been added for abdominal pain. Avoid narcotics. Elevated white count likely from Solu-Medrol 11/23/2023--patient was feeling better today. Multiple family member at bedside. No issues overnight. Normal saline at 10 cc an hour, tube feeding at 20 cc an hour, remains on Zosyn, on 3 L oxygen. Afebrile. Heart rate 62, respiratory rate 16, blood pressure 114/67, saturating 91% on 3 L. WBCs 14.5, 9.7 hemoglobin. Platelet 242. BMP is unremarkable. Pulmonary and general surgery following. General surgery recommended to continue tube feeds at 20 cc/h. 11/24/2023--patient reported significant abdominal discomfort, also noted to have leak around G-tube. General surgery is following, evaluated the patient at bedside, adjusted tube feeds. Also reported having diarrhea, on 2 L oxygen, went up to 5 L. Blood pressure was low, 500 mL fluid bolus with close monitoring of respiratory status ordered. Currently on DuoNebs, Solu-Medrol, will continue Zosyn. Chest x-ray showed a left lower lobe infiltrate. Abdominal x-ray showed multiple air-fluid levels. CT abdomen showed multiple dilated small bowel loops, consistent with obstruction, pneumoperitoneum, cholelithiasis and ascites. WBCs 14.1, platelet 255, hemoglobin 8.9. NG tube in place. Family at bedside. patient transferred to SICU for close monitoring. 11/25/23--patient is currently in the ICU, required Levophed overnight due to low blood pressure, low urine output with creatinine trending up. Nephrology following. Audio Production Engineer also following. Patient remains n.p.o., NG tube in place, following NG tube insertion patient had total of 2 L output, J-tube was draining approximately 200 cc over last 8 hours, continues to have abdominal pain and abdominal tenderness. Patient on IV fluids. Currently on 4 L oxygen. WBCs 8.2, hemoglobin 12.3, platelet 188. Chest x-ray earlier today showed right sided port and a stable left lung airspace disease, NG tube in place. Patient currently on Zosyn, on IV Dilaudid for pain control, on IV Solu-Medrol. General surgery planning for OR today, started on TPN. 11/26/23--patient was seen and examined today. Patient is currently sedated, intubated on mechanical ventilation. Family at bedside. Patient underwent ex lap, abdominal washout, small bowel resection with new feeding jejunostomy tube placement yesterday, small bowel was noted to be perforated with significant contamination of abdominal cavity. Patient is currently on vancomycin and Zosyn. Creatinine went up to 2.85, nephrology following, recommended to continue IV fluids, avoid nephrotoxin Preserved EF on echocardiogram.. Patient currently on Levophed, vasopressin in the ICU for close monitoring. Patient is afebrile, heart rate 122, blood pressure 129/76, currently on mechanical ventilation, sedated. November 26: ICU. Intubated. FiO2 60 and a PEEP of 5. Drips include IV amiodarone. Heart rate was up early did get fired microgram of IV digoxin and 2.5 mg of IV Lopressor. Did drop her blood pressure bit. Urine output was low. Received 80 mg of IV Lasix. Ahmet to 150 cc. Other drips include IV propofol, vasopressin, Levophed. TPN was started yesterday. Antibiotics include IV Zosyn and vancomycin. Patient has a J-tube to drainage to gravity. Spoke to patient's younger daughter and at the bedside. Prognosis guarded. Continue current treatment plan. Chest x-ray shows right lower lobe consolidation. Small pleural effusion. Active Medications Acetaminophen (Acetaminophen Tab 325 Mg Tab) 650 mg PO Q4HR PRN PRN Reason: Fever and/ or Pain Last Admin: 11/22/23 08:46 Dose: 650 mg Acetaminophen (Acetaminophen Oral Susp (Peds) 3,840 Mg/120 Ml Bottle) 480 mg PO Q4HR PRN PRN Reason: Fever Hydrocodone Bitart/Acetaminophen (Hydrocodone/Apap 5-325mg 1 Each Tab) 1 each PO Q4HR PRN PRN Reason: Pain Last Admin: 11/25/23 08:03 Dose: 1 each Albuterol/Ipratropium (Ipratropium-Albuterol 3 Ml Neb) 3 ml INHALATION RT-QID [facility] Last Admin: 11/27/23 11:12 Dose: Not Given Albuterol/Ipratropium (Ipratropium-Albuterol 3 Ml Neb) 3 ml INHALATION RT-Q2H PRN PRN Reason: Shortness Of Breath Or Wheezing Last Admin: 11/26/23 04:04 Dose: 3 ml Chlorhexidine Gluconate (Chlorhexidine Gluconate 15 Ml Cup) 15 ml MUCOUS MEM BID NIRMAL Last Admin: 11/27/23 08:00 Dose: 15 ml Dextrose/Water (Dextrose 50% Syringe 50 Ml) 25 ml IVP PER PROTOCOL PRN; Protocol PRN Reason: Hypoglycemia Dextrose/Water (Dextrose 50% Syringe 50 Ml) 50 ml IVP PER PROTOCOL PRN; Protocol PRN Reason: Hypoglycemia Hydromorphone HCl (Hydromorphone 1 Mg/Ml 1 Ml Syringe) 1 mg IVP Q3HR PRN PRN Reason: Pain Last Admin: 11/27/23 12:05 Dose: 1 mg Propofol 1,000 mg/ IV Solution 100 mls @ 9.36 mls/hr IV .[id number] [facility]; Protocol Last Admin: 11/27/23 14:33 Dose: 50 mcg/kg/min, 23.4 mls/hr Vasopressin 20 unit/ Sodium (Chloride) 51 mls @ 4.59 mls/hr IV .Q11H7M [facility]; Protocol Last Admin: 11/27/23 02:27 Dose: 0.03 units/min, 4.59 mls/hr Norepinephrine Bitartrate 32 (mg/ Sodium Chloride) 250 mls @ 1.097 mls/hr IV .Q24H [facility]; Protocol Last Titration: 11/27/23 14:35 Dose: 0.26 mcg/kg/min, 9.506 mls/hr Sodium Chloride (Saline 0.9%) 1,000 mls @ 150 mls/hr IV .Q6H40M [facility] Last Admin: 11/27/23 11:32 Dose: 150 mls/hr Parenteral Vitamin Supplement 10 ml/ Zinc/Copper/Manganese/Selenium 1 ml/ Sodium Acetate 30 meq/ Potassium Acetate 20 meq/ Calcium Gluconate 1 gm/Magnesium Sulfate 1 gm/ Amino Acids/Dextrose 1,048 mls @ 30 mls/hr IV .Q24H [facility] Stop: 11/27/23 15:59 Last Admin: 11/26/23 16:11 Dose: 30 mls/hr Parenteral Vitamin Supplement 10 ml/ Zinc/Copper/Manganese/Selenium 1 ml/ Sodium Acetate 40 meq/ Potassium Acetate 20 meq/ Calcium Gluconate 1.5 gm/Magnesium Sulfate 0.5 gm/Amino Acids/Dextrose 1,057 mls @ 40 mls/hr IV .Q24H [facility] Amiodarone HCl 450 mg/ (Dextrose/Water) 250 mls @ 16.667 mls/hr IV .Q15H [facility]; Protocol Stop: 11/27/23 16:59 Last Admin: 11/27/23 08:55 Dose: 0.5 mg/min, 16.667 mls/hr Piperacillin Sod/Tazobactam (Sod 3.375 gm/ Sodium Chloride) 100 mls @ 25 mls/hr IVPB Q12HR [facility]; Protocol Acetaminophen 1,000 mg/ IV (Solution) 100 mls @ 400 mls/hr IVPB Q6HR [facility] Stop: 11/28/23 06:14 Last Admin: 11/27/23 12:25 Dose: 400 mls/hr Esmolol HCl/Sodium Chloride 2. (5 gm/ IV Solution) 250 mls @ 27.06 mls/hr IV .Q9H15M [facility]; Protocol Insulin Aspart (Insulin Aspart (Novolog) 100 Unit/Ml Vial) 0 unit SQ 0000,0600,1200,1800 [facility]; Protocol Last Admin: 11/27/23 12:29 Dose: 6 unit Lidocaine HCl (Lidocaine 1% (10mg/Ml) For Iv Start) 0.1 ml INTRADERMA PER PROTOCOL PRN PRN Reason: IV Start Stop: 12/12/23 05:39 Methylprednisolone Sodium Succinate (Methylprednisolone Sod Succi 40 Mg/Ml 1 Ml Vial) 40 mg IV Q12HR [facility] Last Admin: 11/27/23 08:00 Dose: 40 mg Metoprolol Tartrate (Metoprolol Tartrate 5 Mg/5 Ml Vial) 2.5 mg IVP Q6HR PRN PRN Reason: Heart Rate - HIGH Last Admin: 11/27/23 08:25 Dose: 2.5 mg Miscellaneous Information (Magnesium Replacement [place] 1 [place] [facility] [place] 1 each MISCELLANE DAILY PRN; Protocol PRN Reason: Per Protocol Miscellaneous Information (Vancomycin Iv Per Pharmacy [place] Each [facility] [place] 1 each MISCELLANE DIRECTED PRN; Protocol PRN Reason: Per Protocol Morphine Sulfate (Morphine Sulfate 2 Mg/Ml Syringe) 1 mg IVP Q4HR PRN PRN Reason: Pain Control Last Admin: 11/26/23 15:26 Dose: 1 mg Morphine Sulfate (Morphine Sulfate 2 Mg/Ml Syringe) 2 mg IVP Q4HR PRN PRN Reason: Pain/Discomfort Last Admin: 11/26/23 09:35 Dose: 2 mg Naloxone HCl (Naloxone 0.4 Mg/Ml 1 Ml Vial) 0.2 mg IV Q2M PRN PRN Reason: Opioid Reversal Pantoprazole Sodium (Pantoprazole 40 Mg/10 Ml Vial) 40 mg IVP BID [facility] Last Admin: 11/27/23 07:59 Dose: 40 mg Past medical history to include: GERD Social history: . No smoking. Physical examination: VITAL SIGNS: 101.7, 129, 28, 149 x 85, GENERAL: Sedated, right chest wall port EYES: Pupils equal. Conjunctiva edouard l. HEENT: External appearance of nose and ears normal, oral cavity-endotracheal tube NECK: JVD unable to assess; masses not palpable. HEART: First and second heart sounds are normal; edema, present LUNGS: Respiratory rate increased, decreased breath sounds t ABDOMEN: Soft, nontender, liver spleen not palpable, no masses palpable..jejunostomy tube-attached to gravity. RAYA drain. Incision with stitches PSYCH: Patient sedated INVESTIGATIONS, reviewed in the clinical context: November 26: White count 13 hemoglobin 9.4 platelets sodium 140 potassium 4.4 BUN 83 creatinine 3.71 calcium 6.1 albumin 2.1 November 20: White count 14.4 hemoglobin 8.8 platelets 229 potassium 4.1 BUN [address] scan abdomen [November 19] possible small bowel obstruction Stool: C. difficile negative November 16: White count 9.1 hemoglobin 7.9 platelets 259 potassium 4.3 creatinine 0.92 November 15: WBC 13 hemoglobin 7.7 platelets 248 potassium 4.3 creatinine 0.87 2D echo: EF 55 to 60%. November 14: White count 10.7 hemoglobin 7.5 platelets 239 potassium 4.2 creatinine 0.96 Kidneys bladder: Unremarkable November 13: White count 12 hemoglobin 6.9 platelets 276 potassium 4.4 creatinine 1.21 magnesium 1.8 iron 6 TIBC 365% saturation 1.64 transferrin 261 ferritin 34.6 B12 569 folate 4.4 November 12: White count 14 hemoglobin 7.6 platelets 333 sodium 136 BUN 26 creatinine 1.57 November 11: Creatinine 0.86 EGD: Large amount of retained solid liquid food noted in the stomach. Large superficial gastric antral ulceration involving most of the antrum extending into the pylorus causing pyloric stenosis. Biopsies were obtained. Chest x-ray film personally reviewed by me-scattered infiltrates Assessment plan: -Aspiration pneumonitis bilateral from retained gastric contents mostly food and liquids, causing acute hypoxic respiratory failure: IV Zosyn Pulmonary following -Acute pulmonary edema and fluid overload from hypoalbuminemic state and fluids from IV.: Better -Mall bowel perforation at site of jejunostomy tube tip with balloon..: Portion of small bowel resected. On November 24. New J-tube was placed.-To drainage to gravity N.p.o. -Acute kidney injury. Possible ATN from hypotensive shock: Creased urine output not improving Renal ultrasound unremarkable Followed by nephrology -Nutrition Jejunostomy tube placed November [address] Ewing Currently started on TPN. -Acute recurrent atrial fibrillation-uncontrolled IV amiodarone. Cardiology following Lopressor intermittently -Acute hypoxic respiratory failure from aspiration pneumonia, status post ventilator assisted: Reintubated November 25. FiO2 60 PEEP of 5 -Normocytic anemia likely to secondary underlying lymphoma Iron deficiency anemia Received a unit of blood. IV iron. -Acute blood loss anemia, Received 1 unit of blood -GERD PPI -Acute diarrhea secondary to tube feeding. C. difficile ruled out. -Large superficial gastric antral ulceration involving the gastric antrum extending into the pylorus with gastric outlet obstruction. 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 Port placed. For outpatient PET scan. -Full code Prognosis guarded. Discussed with patient and daughter at the bedside. Multiple consults including cardiology, disc sander, nephrology, general surgery following. Past Medical History Past Medical History: GERD/Reflux History of Any Multi-Drug Resistant Organisms: None Reported Past Surgical History: Heart Catheterization Additional Past Surgical History / Comment(s): colonsocopy,spinal injection, Past Anesthesia/Blood Transfusion Reactions: No Reported Reaction Past Psychological History: No Psychological Hx Reported Smoking Status: Never smoker Past Alcohol Use History: None Reported Past Drug Use History: None Reported
[2023-11-27 17:07] LABS: African American GFR (CKD) 15 (>60 ml/min/1.73 sqM); Anion Gap 8 mmol/L; Blood Urea Nitrogen 89 mg/dL (9-20); Calcium 6.5 mg/dL (8.4-10.2); Carbon Dioxide 18 mmol/L (22-30); Chloride 113 mmol/L (98-107); Glucose 268 mg/dL (74-99); Non-African American GFR(CKD) 13 (>60 ml/min/1.73 sqM); Potassium 4.5 mmol/L (3.5-5.1); Sodium 139 mmol/L (137-145)
[2023-11-27 18:31] LABS: Glucose,Whole Blood 306 mg/dL (70-110)
[2023-11-27] MEDS: PIPERACILLIN-TAZOBACTAM 3.375 GM in SODIUM CHLORIDE 0.9% 100 ML IVPB SCH (21:42)
[2023-11-27 23:59] LABS: Glucose,Whole Blood 282 mg/dL (70-110)
[2023-11-28] MEDS: AMIODARONE 450 MG in DEXTROSE 5% IN WATER 250 ML IV SCH ×2 (00:18→19:50)
[2023-11-28] MEDS: MVI, ADULT NO.4 WITH VIT K 10 ML, TRACE (CONC-1ML/DOSE) 1 ML, SODIUM ACETATE 40 MEQ, PO... IV SCH (04:05)
[2023-11-28 05:02] LABS: ABG Base Excess -6.1 mmol/L; ABG HCO3 20 mmol/L (21-25); ABG Oxygen Saturation 97.2 % (94-97); ABG PCO2 38 mmHg (35-45); ABG PH 7.32 (7.35-7.45); ABG PO2 90 mmHg (83-108); ABG TCO2 21 mmol/L (19-24)
[2023-11-28 05:04] LABS: Allen Test Performed? no
[2023-11-28 05:19] LABS: Anisocytosis Slight; HCT 25.6 % (39.0-53.0); Hypochromasia Marked; MCH 28.1 pg (25.0-35.0); MCV 90.6 fL (80.0-100.0); Macrocytosis Slight; Mean Platelet Volume 11.7; Poikilocytosis Slight; RBC 2.82 m/uL (4.30-5.90); RDW 19.7 % (11.5-15.5); WBC 11.2 k/uL (3.8-10.6)
[2023-11-28 05:24] LABS: African American GFR (CKD) 13 (>60 ml/min/1.73 sqM); Anion Gap 8 mmol/L; Blood Urea Nitrogen 93 mg/dL (9-20); Calcium 6.9 mg/dL (8.4-10.2); Carbon Dioxide 18 mmol/L (22-30); Chloride 114 mmol/L (98-107); Glucose 238 mg/dL (74-99); Magnesium 2.2 mg/dL (1.6-2.3); Non-African American GFR(CKD) 11 (>60 ml/min/1.73 sqM); Phosphorus 4.5 mg/dL (2.5-4.5); Potassium 4.3 mmol/L (3.5-5.1); Sodium 140 mmol/L (137-145)
[2023-11-28 05:30] LABS: HGB 7.9 gm/dL (13.0-17.5)
[2023-11-28 06:05] LABS: Platelet Count 46 k/uL (150-450)
--- NOTE | 2023-11-28 09:40 | XR ---
EXAMINATION TYPE: XR chest 1V portable DATE OF EXAM: 11/28/2023 COMPARISON: 11/27/2023 INDICATION: Tube placement TECHNIQUE: Single frontal view of the chest is obtained. FINDINGS: The heart size is normal. The pulmonary vasculature is normal. Bibasilar infiltrates. There is a endotracheal tube with the tip above the josseline. Nasogastric tube transverses the thorax. Left central venous catheter tip is in the superior vena cava region. Right sided port tip within the deep right atrium. IMPRESSION: 1. Bibasilar infiltrates, worsening on the left. 2. Small left pleural effusion. 3. Lines and catheters discussed above [facility], , 11/28/2023 9:37 AM
[2023-11-28] MEDS ORDERED: SODIUM CHLORIDE 0.9% 1,000 ML IV SCH (10:00)
[2023-11-28] MEDS: SODIUM BICARB 8.4% 50 ML SYR (1 MEQ/ML) IV STA (10:20)
--- NOTE | 2023-11-28 10:20 | P.PN ---
Subjective Patient is seen in follow-up for acute kidney injury. Patient underwent exploratory laparotomy with small bowel obstruction NG tube replacement Sep 2023. Remains on Levophed and vasopressin. Intubated. Receiving TPN. On amiodarone drip for A-fib. Received digoxin yesterday. Also received 2 doses of IV Lasix yesterday. Urine output better. Vital signs unstable -patient in A-fib and hypotensive on vasopressor support. General: Resting in bed. HEENT: Intubated. LUNGS: Scattered rhonchi. HEART: Irregular rate and rhythm. ABDOMEN: Abdominal dressing noted. No drainage. EXTREMITITES: No edema. Objective - Vital Signs Vital signs: Vital Signs Temp 98.4 F 11/28/23 08:00 Pulse 118 H 11/28/23 09:15 Resp 28 H 11/28/23 09:15 BP 125/71 11/27/23 19:00 Pulse Ox 100 11/28/23 09:15 FiO2 55 11/28/23 08:19 Intake & Output 11/27/23 11/28/23 11/28/23 18:59 06:59 18:59 Intake Total 3448.098 2299.842 526.879 Output Total 1073 1320 140 Balance 2375.098 979.842 386.879 Weight 90.2 kg 110.8 kg Intake: IV 2009 1971 405 0.9 KVO 110 71 30 Calcium Gluconate in NaCl 100 2 gm In Saline 1 100ml. bag @ 100 mls/hr IVPB ONCE ONE Rx#:[id number] Piperacillin-Tazobactam 3 100 .375 gm In Sodium Chloride 0.9% 100 ml @ 25 mls/hr IVPB Q8HR [facility] Rx# :[id number] Sodium Chloride 0.9% 1, 1800 1800 375 000 ml @ 150 mls/hr IV . Q6H40M [facility] Rx#:[id number] Intake, IV Titration 1438.098 328.842 121.879 Amount ACETAMINOPHEN IV (For NPO 100 ) 1,000 mg In Empty Bag 1 bag @ 400 mls/hr IVPB Q6HR [facility] Rx#:[id number] Amiodarone 450 mg In 161.948 Dextrose 5% in Water 250 ml @ 0.5 MG/MIN 16.667 mls/hr IV .Q15H [facility] Rx#: [id number] Mvi, Adult No.4 with Vit 60 K 10 ml Trace (Conc-1Ml/ Dose) 1 ml Sodium Acetate 30 meq Potassium Acetate 20 meq Calcium Gluconate 1 gm Magnesium Sulfate gm 1 gm In Amino Acids 5 %/Dextrose 20 % 1,000 ml @ 30 mls/hr IV .Q24H [facility] Rx#:[id number] Mvi, Adult No.4 with Vit 90 30 K 10 ml Trace (Conc-1Ml/ Dose) 1 ml Sodium Acetate 40 meq Potassium Acetate 20 meq Calcium Gluconate 1 gm Magnesium Sulfate gm 1 gm In Amino Acids 5 %/Dextrose 20 % 1,000 ml @ 40 mls/hr IV .Q24H [facility] Rx#:[id number] Mvi, Adult No.4 with Vit 30 K 10 ml Trace (Conc-1Ml/ Dose) 1 ml Sodium Acetate 40 meq Potassium Acetate 20 meq Calcium Gluconate 1.5 gm Magnesium Sulfate gm 0.5 gm In Amino Acids 5 %/Dextrose 20 % 1,000 ml @ 40 mls/hr IV .Q24H [facility] Rx#:[id number] Norepinephrine 32 mg In 154.830 54.312 0.549 Sodium Chloride 0.9% 218 ml @ 0.03 MCG/KG/MIN 1. 097 mls/hr IV .Q24H [facility] Rx#:[id number] Piperacillin-Tazobactam 3 25 .375 gm In Sodium Chloride 0.9% 100 ml @ 25 mls/hr IVPB Q8HR [facility] Rx# :[id number] Vancomycin 1,500 mg In 500 Sodium Chloride 0.9% 500 ml 500 ml @ 167 mls/hr IVPB ONCE ONE Rx#: [id number] Vasopressin 20 unit In 51 Sodium Chloride 0.9% 50 ml @ 0.03 UNITS/MIN 4.59 mls/hr IV .Q11H7M [facility] Rx# :[id number] propofoL 1,000 mg In 290.32 244.53 96.33 Empty Bag 1 bag @ 20 MCG/ KG/MIN 9.36 mls/hr IV . [id number] [facility] Rx#:[id number] Output: Gastric Drainage 400 100 Drainage 100 540 55 Left Abdomen 240 15 Right Abdomen 100 300 40 Urine 573 680 85 Other: Voiding Method Indwelling Catheter Indwelling Catheter Indwelling Catheter # Voids 3 ABP, PAP, CO, CI - Last Documented Arterial Blood Pressure 123/68 - Labs CBC & Chem 7: 11/28/23 04:49 11/28/23 04:49 Labs: Abnormal Lab Results - Last 24 Hours (Table) 11/27/23 11/27/23 11/27/23 Range/Units 11:32 16:45 18:30 WBC (3.8-10.6) k/uL RBC (4.30-5.90) m/uL Hgb (13.0-17.5) gm/dL Hct (39.0-53.0) % RDW (11.5-15.5) % Plt Count (150-450) k/uL ABG pH (7.35-7.45) ABG HCO3 (21-25) mmol/L ABG O2 Saturation (94-97) % Hemoglobin (13.0-17.5) gm/dL Chloride 113 H (98-107) mmol/L Carbon Dioxide 18 L (22-30) mmol/L BUN 89 H (9-20) mg/dL Creatinine 4.26 H (0.66-1.25) mg/dL Glucose 268 H (74-99) mg/dL POC Glucose (mg/dL) 289 H 306 H (70-110) mg/dL Calcium 6.5 L (8.4-10.2) mg/dL 11/27/23 11/28/23 11/28/23 Range/Units 23:58 04:49 04:49 WBC 11.2 H (3.8-10.6) k/uL RBC 2.82 L (4.30-5.90) m/uL Hgb 7.9 L D (13.0-17.5) gm/dL Hct 25.6 L (39.0-53.0) % RDW 19.7 H (11.5-15.5) % Plt Count 46 L D (150-450) k/uL ABG pH (7.35-7.45) ABG HCO3 (21-25) mmol/L ABG O2 Saturation (94-97) % Hemoglobin (13.0-17.5) gm/dL Chloride 114 H (98-107) mmol/L Carbon Dioxide 18 L (22-30) mmol/L BUN 93 H (9-20) mg/dL Creatinine 4.81 H (0.66-1.25) mg/dL Glucose 238 H (74-99) mg/dL POC Glucose (mg/dL) 282 H (70-110) mg/dL Calcium 6.9 L (8.4-10.2) mg/dL 11/28/23 Range/Units 04:56 WBC (3.8-10.6) k/uL RBC (4.30-5.90) m/uL Hgb (13.0-17.5) gm/dL Hct (39.0-53.0) % RDW (11.5-15.5) % Plt Count (150-450) k/uL ABG pH 7.32 L (7.35-7.45) ABG HCO3 20 L (21-25) mmol/L ABG O2 Saturation 97.2 H (94-97) % Hemoglobin 7.8 L (13.0-17.5) gm/dL Chloride (98-107) mmol/L Carbon Dioxide (22-30) mmol/L BUN (9-20) mg/dL Creatinine (0.66-1.25) mg/dL Glucose (74-99) mg/dL POC Glucose (mg/dL) (70-110) mg/dL Calcium (8.4-10.2) mg/dL Microbiology - Last 24 Hours (Table) 11/26/23 12:22 Blood Culture - Preliminary Blood 11/26/23 00:30 Gram Stain - Preliminary Sputum Sputum Culture - Preliminary Gram Neg Bacilli Gram Neg Bacilli#2 Assessment and Plan Plan: Assessment: 1. Acute kidney injury secondary to ATN secondary to septic shock. Creatinine 0.86 on admission and is 4.81 today. Urine output 25 to 45 cc an hour for the last few hours. UA fairly benign. No hydronephrosis noted on imaging. 2. Perforated small bowel status post exploratory laparotomy with abdominal washout, small bowel resection and J-tube replacement November 25, 2023. 3. A-fib with RVR. On amiodarone drip. Also received digoxin this admission. 4. Recently diagnosed gastric B-cell lymphoma. 5. Septic shock. Likely abdominal source. On vasopressors and IV antibiotics. 6. Hypocalcemia secondary to acute kidney injury. 7. Metabolic acidosis secondary to acute kidney injury. Replaced. Improved. Plan: Maintain IV fluids. Rate decreased to 75 cc an hour. Receiving TPN per surgery. Phosphorus level 4.5 today Status post 2 doses of IV Lasix yesterday with improved urine output. 2 A of sodium bicarb IV push today. Avoid nephrotoxins. Continue to monitor renal function and urine output. Preserved EF noted on echocardiogram. Continue to assess daily for need for renal replacement therapy. No urgency at this time. Wean FiO2 and vasopressors. Case discussed at length with patient's family present at bedside.
[2023-11-28] MEDS: SODIUM CHLORIDE 0.9% 1,000 ML IV SCH (10:22)
[2023-11-28 11:33] LABS: Glucose,Whole Blood 307 mg/dL (70-110)
--- NOTE | 2023-11-28 12:15 | P.PN ---
Subjective Progress Note Date: 11/28/23 Abdominal pain. This is a 73-year-old white male with history of chronic abdominal pain for the last 8 months has been treated with Protonix 40 mg daily for the last 3 months with no improvement. Patient had a 22 pound weight loss in the last [address] of the abdomen and pelvis 3 weeks ago showed thickening of the antral wall with pathological adenopathy posterior to the stomach suspicious of neoplasm. Today the patient underwent elective upper endoscopy to evaluate further, patient received IV sedation by anesthesia endoscope was inserted into the mouth, esophagus was intubated without any difficulty there was evidence of large amount of liquid and solid food noted in the stomach suggestive of gastric outlet obstruction. Scope could not be advanced through the pylorus, however in the prepyloric area there was a large superficial ulceration identified with multiple biopsies were done from this area. The body cardia and fundus could not adequately visualize because of large amount of retained food in the stomach. Scope was withdrawn back to the stomach and upon careful examination the mucosa of the antrum body and cardia as well as the fundus appeared normal. Procedure was being performed and biopsies were done patient threw up and subsequently became hypoxic there was clearly evidence of witnessed aspiration anesthesia intubated the patient, procedure was terminated, and the patient was transferred to the ICU, this consult was initiated. Patient is now on assist- control rate of 20 tidal volume 500 FiO2 70% PEEP of 10 ABG is pending, earlier ABG showed profound hypoxia patient is on propofol at 50 mcg/kg/min, next ABG is pending. Chest x-ray showed chronic changes without evidence of acute pulmonary disease. Patient was seen and examined today on 11/13/2023, remains in the ICU, intubated mechanically ventilated, on assist-control rate of 20 tidal volume 500 FiO2 50% and PEEP of 10 ABG showed a pO2 of 143 pCO2 47 pH of 7.28 hence PEEP was cut down to 6, and increased rate to 22. Patient is still requiring IV fluid at 100 cc/h/LR. Requiring norepinephrine at 0.08 mcg/kg/min he is also on propofol at 50 mg/kg/min antibiotics arce patient is receiving Zosyn. Chest x-ray is showing worsening infiltrates specially in the left lung. This could be related to aspiration pneumonia. Patient had witnessed aspiration during endoscopy/upper endoscopy.WBC count is 14 hemoglobin 7.6 basic metabolic profile is normal BUN is 26 creatinine 1.57 obviously the patient sustained some acute kidney injury baseline creatinine 0.86 patient had received fluids over the last 24 hours, remains on fluids at 100 cc/h Patient with seen and examined today on 11/14/2023, patient remains in the ICU, intubated and mechanically ventilated. Failed weaning trial yesterday and he became quite agitated and desaturated once he went off propofol. Had to be placed back on assist-control mode of mechanical ventilation and sedation. Today the patient is on assist-control rate of 22 tidal volume 500 FiO2 50% PEEP of 6. ABG showed a pO2 of 123 pCO2 51 pH of 7.32, and I cut down his FiO2 down to 45%, patient is receiving a unit of packed RBCs for hemoglobin of 6.9 today. Patient had an episode of A-fib RVR at 3 AM in the morning, seen by cardiology, and recommended patient goes on amiodarone. Still requiring norepinephrine at 0.05 mg/kg/min, he is on LR at 100 cc/h propofol at 50 mg/kg/min. Remains empirically on Zosyn for aspiration pneumonia. My plan today is transitioning the patient to Precedex, hopefully discontinue propofol, and at least give the patient a decent weaning trial or at least check weaning parameters before we proceed to weaning trial. Chest x-ray continues to show evidence of pneumonia mostly in the left lung and left lower lobe more specifically. Some pulmonary vascular congestion is noted with interstitial edema, small pleural effusion is also noted/left side. WBC count today is 12 hemoglobin 6.9 basic metabolic profile is normal bicarb is 25, BUN is 25 creatinine is improving down to 1.21 from 1.57 yesterday Patient was evaluated today on 11/15/2023, patient remains in the ICU, he was extubated yesterday, and his extubation was relatively uneventful. However the patient continues to have nasogastric tube in place, his pathology report came back showing non-Hodgkin's lymphoma, patient has gastric outlet obstruction, and the recommendation by GI is to consult surgery for a jejunostomy tube which is appropriate. Patient will be seen today by oncology and he will be seen by general surgery. In the meantime patient is comfortable, he is on 5 L nasal cannula he has LR running at 100 cc/h, he is remains on Zosyn for aspiration pneumonia remains on amiodarone which was started by cardiology for atrial fibrillation with RVR, presently in sinus rhythm. Cannot switch him to oral because of the fact that remains n.p.o., patient remains on TPN. WBC count is 10.7 hemoglobin 7.5 electrolytes are normal renal profile is normal, creatinine normalized to 0.96 Patient was evaluated today on 11/16/2023, remains in the ICU, on 5 L nasal cannula remains on amiodarone at 0.5 mg/min remains on LR at 100 cc/h, however his chest x-ray is showing some component of interstitial edema or could be findings related to his recent episode of aspiration/aspiration pneumonia, nonetheless the patient seems to be a bit symptomatic, he has intermittent cough and wheezing, I am recommending Lasix 40 mg IV push, cut down his IV fluid to 50 cc/h, continue Zosyn, patient will be placed on DuoNeb updrafts and on Solu- Medrol. Patient is scheduled to have jejunostomy-tube placement today. WBC count is 13 hemoglobin 7.7 basic metabolic profile is normal and renal profile is normal Patient was evaluated today on 11/17/2023, patient underwent uneventful placement of a jejunostomy tube yesterday, in the ICU on 5 L, patient is relatively stable, not in any distress, patient continues to have nasogastric tube in place although he did have a J-tube placed yesterday. Patient was seen by oncology for his non-Hodgkin's lymphoma involving the gastric outlet. Today's x-ray showed evidence of pneumonia/bilateral interstitial infiltrate/edema patient was given a dose of Lasix, I reminded the patient had an aspiration episode which was significant. And he required intubation mechanical ventilation for a few days.WBC count today is 9.1 hemoglobin 7.9 electrolytes are normal renal profile is normal hence I plan to transfer the patient out of the ICU to a cardiac floor. And hopefully discharge planning in the next 2 days for The patient was seen today November 18, 2023 in follow-up in the intensive care unit. He is currently sitting up in bed. Awake and alert in no acute distress. He is maintaining O2 saturations in the 90s on 5 L/min per nasal cannula. Glucose 177. Remains on DuoNeb inhalations and Solu-Medrol. Antibiotics in the form of Zosyn. He has a J-tube in place. He was initiated on vital AF 1.2 at 10 mL an hour with a goal of 82 mL/h The patient is seen today November 19, 2023 in follow-up in the intensive care unit. He is a regular medical floor overflow patient. He is currently sitting up in a chair. Awake and alert in no acute distress. He is maintaining O2 saturations in the 90s on 5 L/min per nasal cannula. No IV fluids. He denies any worsening shortness of breath, cough or congestion. He is having some issues with diarrhea. He remains on Zosyn. He is receiving vital AF at 55 mL/h with a goal of 82 mL/h. Glucose 161. Solu-Medrol, DuoNeb inhalations. The patient is seen today November 20, 2023 in follow-up on the regular medical floor. He is currently up in a chair at the bedside. Awake and alert in no acute distress. Denies any worsening shortness of breath, cough or congestion. He is maintaining O2 saturation in the 90s on 3 L/min per nasal cannula. He continues on Zosyn. Continues on bronchodilators and steroids. White count 12.3. Hemoglobin 9.0. Platelets 258. Glucose 168. He is not tolerating his tube feeds as he has developed diarrhea. C. difficile screen was negative. Abdominal series revealed cardiomegaly with left basilar acute infiltrate and/or atelectasis. Overall nonspecific bowel gas pattern. A small bowel obstruction needs to be considered. Progress note dated November 21, 2023. The patient is seen in room 517. The patient is currently on 3 L of oxygen. He continues on Zosyn. His biggest complaint has been abdominal discomfort and diarrhea. He did have a CT scan of the abdomen and pelvis. Current laboratory data includes a white count of 14.4, hemoglobin 8.8, hematocrit 28.7, and platelet count 229,000. Sodium 139, potassium 4.1, chlorides 103, CO2 30, BUN 42, creatinine 0.94. Glucose is 158. Calcium is 8.5. Progress note dated November 22, 2023. 73-year-old male seen in room 517. He currently is on 2 L of oxygen. Room air saturation was 89%. Chest CT shows bilateral patchy infiltrates. He continues on Zosyn. He is still not taking anything by mouth. No new laboratory data today other than a glucose of 138. Gram stain was negative. Progress note dated November 23, 2023. 73-year-old male seen in room 517. He is resting comfortably without complaints. He continues on saline at 10 cc an hour, tube feedings with Pivot at 20 cc an hour, Zosyn, and 2 L by nasal cannula. He has had an uneventful night. Laboratory data today includes a white count 14.5, hemoglobin 9.7, hematocrit 31.4, and a platelet count of 242,000. Sodium 138, potassium 3.7, chlorides 106, CO2 26, BUN 39, creatinine 0.95. Glucose is 181. Calcium is 8.5. Sputum sampling was negative. Progress note dated November 24, 2023. 73-year-old male who is seen in room 517. The patient has been having significant abdominal discomfort, and went for a evaluation, ordered by surgery today, to determine whether or not the feeding tube, was in proper position, and whether or not there is anything acutely going on in the abdomen. He had been having diarrhea. He is on 3 L of oxygen. He has been here for 12 days. This is a patient, that had a prior EGD, aspirated, because of gastric outlet obstruction, and was diagnosis of non-Hodgkin's lymphoma. He is currently on Zosyn, DuoNebs, and Solu-Medrol. He has been NPO. Chest x-ray showed a left lower lobe infiltrate. Abdominal x-ray showed multiple air-fluid levels. CT of the abdomen showed multiple dilated small bowel loops, consistent with obstruction, pneumoperitoneum, ascites, and cholelithiasis. White count was 14.1, hemoglobin 8.9, hematocrit 29.5, and platelet count was 255,000. Glucose was 143. 11/25/2023, the patient is being seen in the intensive care unit. The patient is critically ill, n.p.o., he has an NG tube in place. Following the NG tube insertion, there was a total of 2.0 L of output and the patient's J-tube was also draining approximately 200 cc over the past 8 hours. Continues to have abdominal pain which is rather diffuse and the patient has direct abdominal tenderness. CAT scan of the abdomen was noted and was consistent with small bowel obstruction. The patient has a stomach that was inflated and in the same time there were multiple loops of small bowel distended with fluid. This extended to the pelvis. J-tube with contrast nondilated small bowel loops within the mid abdomen. Additional loops of small bowel were seen that was dilated. There was some contrast in the right lower quadrant and contrast was also in the cecum. No transition point was identified. The dilated loops of the bowel appeared to be in the proximal jejunum and distal to the duodenum. General surgery is on the case the patient will be taken to the operating room for another exploratory laparotomy. Noted the CAT scan of the abdomen also showed pneumoperitoneum and small amount of ascites and cholelithiasis. Hemodynamically, the patient is currently on normal saline at rate of 75 cc an hour. He is hypotensive and is going to be started on pressors. He is on 4 L of oxygen by nasal cannula. He also has sustained acute kidney injury. Blood work from today shows a rise in the creatinine which is currently up to 2.5 with a BUN of 57. Serum bicarb is at 14 with an anion gap of 11. The patient WBC count is at 8.2 with a hemoglobin of 12.3 and a platelet count of 188. Chest x- ray from this morning is showing a right-sided port and a stable left lung airspace disease and an NG tube being in place. The patient remains on IV Zosyn. The patient is receiving Dilaudid for pain control. The patient remains on IV Solu-Medrol 60 mg every 6 hours. It was noted that the patient's surgical wound over the port has dehisced and there is some serous drainage and erythema at the incision site. Awake and alert and communicating. Family at the bedside. No apparent signs of respiratory distress at this point. 11/26/2023, the patient is being seen in follow-up. Events from yesterday was noted and the patient was taken to the operating room for exploratory laparotomy. The patient was found to have large amount of free fluid noted in the abdomen and there was significant contamination. There was perforation of the small bowel with the balloon of the previously inserted jejunostomy tube penetrating through the perforation. As such, the tube was removed, abdominal washout was done. Small bowel resection was done and the patient had a nodular jejunostomy tube inserted. Postop, the patient was extubated he was unable to tolerate extubation and the patient was kept intubated on mechanical ventilator and he was brought back to the intensive care unit. He is currently postop day #1 following his small bowel resection. Abdominal surgical wound site is dry clean and intact. This morning, the patient remains sedated on propofol which is currently running at 35 mcg/kg/min. He is on assist-control mode of mechanical ventilation at rate of 28, tidal volume of 550, FiO2 of 60% with a PEEP of 5. Blood gas from today shows a pH of 7.35 with a pCO2 44 and pO2 of 88. Chest x-ray shows adequate positioning of the orotracheal tube. The patient has a Mediport on the right and a subclavian triple-lumen catheter on the left and the patient has persistent bilateral pleural effusion and infiltrates in lung base bilaterally. Hemodynamically, the patient remains in shock. He has been on high-dose norepinephrine which is currently running at 0.28 mcg/kg/min and the patient is also on vasopressin at 0.03 units an hour. He is IV fluids are in the form of bicarb infusion running at rate of 150 cc an hour. He is in sinus tachycardia. NG tube output has been 250 cc over the past 8 hours and the output from the J-tube is minimal at this point in time. Urine output is quite diminished as the patient has also sustained acute kidney injury. Overall fluid balance is +4.9 L over the past 24 hours. The patient's white cell count of 5.7 with a hemoglobin 9.9 and platelet count of 172. BUN is 72 with a creatinine of 2.8 and sodium levels at 143. The calcium level is at 6.5. LFTs are normal. Triglyceride level is at 315. On 11/27/2023, the patient remains critically ill. Remains intubated and on mechanical ventilator, still awaiting shock which is essentially septic shock. Remains on propofol which is running at 50 mcg/kg/min. Remains on the mechanical ventilator, assist-control mode with rate of 28, tidal volume of 550 with an FiO2 of 60% with a PEEP of 5. Blood gas shows a pH of 7.29 with a pCO2 of 47 and pO2 of 78. The patient had a follow-up chest x-ray that showed lower lobe consolidation slightly worse on the right and the orotracheal tube is in a good location. Urine output is diminished in the order of 5 to 10 cc an hour and the patient is also developing progressive worsening renal function. Remains on normal citrate of 150 cc an hour and the patient was started on TPN which is running at 30 cc an hour. He has a triple-lumen catheter in his left subclavian. Overall fluid balance over the past 24 hours is +3.9 L. Output from the NG tube and the J-tube is minimal. Hemodynamically, he is hypotensive and norepinephrine running at 0.45 mcg/kg/min. Vasopressin is a physiologic dose. He received amiodarone and he remains on maintenance amiodarone of 0.5 mg /min and the patient continues to be in atrial fibrillation and is having episodes of tachycardia. The white cell count is at 13, hemoglobin 9.4 platelet count is pending. The patient's BUN is 83 with a creatinine of 3.7. Sodium is at 140 with a potassium level of 5.5 dropped down to 4.4 as the sample was hemolyzed. LFTs are normal. Abdominal wound is dry clean and intact. RAYA drainage is essentially serous at this point in time. 11/28/2023, the patient is being seen for a follow-up. The patient remains intubated on mechanical ventilator. This morning, the patient tolerated propofol drip running at 50 mcg/kg/min. The patient is on mechanical ventilator assist-control mode with rate of 28, tidal volume of 550, FiO2 55% with a PEEP of 5. Chest x-ray shows stable findings with lower lobe consolidations bilaterally. Blood gas shows a pH of 7.32 with a pCO2 38 and pO2 90. Neuropath y has improved and the patient is producing approximately 30 cc an hour and the overall input output balance is +3.3 L over the past 24 hours. The patient is still on pressors although his pressor requirements have improved since yesterday. He is on norepinephrine which is running at 0.05 mcg/kg/min and vasopressin physiologic dose. Also, the patient on amiodarone drip regarding his chronic ongoing atrial fibrillation. Amiodarone drip is running at 0.5 mg/min. Nevertheless, the rate is under much better control. Noted the patient was given a dose of digoxin 0.5 mg IV yesterday which helped with rate control. Remains on normal citrate of 150 cc an hour. Remains on TPN at 40 cc an hour. Output from the J-tube is fecal. Output from the NG tube is more gastric. Surgical wound site is dry clean and intact. Sputum Gram stain and culture showing Pseudomonas and Citrobacter. Note that the Citrobacter was intermediate resistance to Zosyn. This will be discussed further with infectious disease. Blood cultures are still pending for now. They have negative based on the most recent check. Blood work from today shows WBC count 11.2, hemoglobin 7.9 and platelet count of 46. Sodium is at 140, potassium is at 4.3, chloride is 114 with a bicarb of 18. He has 93 and the creatinine is 4.8. Serum random vancomycin level is at 25.7. Objective - Vital Signs Vital signs: Vital Signs Temp 98.4 F 11/28/23 08:00 Pulse 70 11/28/23 11:41 Resp 24 11/28/23 11:30 BP 125/71 11/27/23 19:00 Pulse Ox 100 11/28/23 11:30 FiO2 55 11/28/23 11:24 Intake & Output 11/27/23 11/28/23 11/28/23 18:59 06:59 18:59 Intake Total 3448.098 2299.842 768.143 Output Total 1073 1320 210 Balance 2375.098 979.842 558.143 Weight 90.2 kg 110.8 kg Intake: IV 2009 0.9 KVO 110 71 50 Calcium Gluconate in NaCl 100 2 gm In Saline 1 100ml. bag @ 100 mls/hr IVPB ONCE ONE Rx#:[id number] Piperacillin-Tazobactam 3 100 .375 gm In Sodium Chloride 0.9% 100 ml @ 25 mls/hr IVPB Q8HR [facility] Rx# :[id number] Sodium Chloride 0.9% 1, 1800 1800 375 000 ml @ 150 mls/hr IV . Q6H40M [facility] Rx#:[id number] Intake, IV Titration 1438.098 328.842 343.143 Amount ACETAMINOPHEN IV (For NPO 100 ) 1,000 mg In Empty Bag 1 bag @ 400 mls/hr IVPB Q6HR [facility] Rx#:[id number] Amiodarone 450 mg In 161.948 Dextrose 5% in Water 250 ml @ 0.5 MG/MIN 16.667 mls/hr IV .Q15H [facility] Rx#: [id number] Mvi, Adult No.4 with Vit 60 K 10 ml Trace (Conc-1Ml/ Dose) 1 ml Sodium Acetate 30 meq Potassium Acetate 20 meq Calcium Gluconate 1 gm Magnesium Sulfate gm 1 gm In Amino Acids 5 %/Dextrose 20 % 1,000 ml @ 30 mls/hr IV .Q24H [facility] Rx#:[id number] Mvi, Adult No.4 with Vit 90 30 K 10 ml Trace (Conc-1Ml/ Dose) 1 ml Sodium Acetate 40 meq Potassium Acetate 20 meq Calcium Gluconate 1 gm Magnesium Sulfate gm 1 gm In Amino Acids 5 %/Dextrose 20 % 1,000 ml @ 40 mls/hr IV .Q24H [facility] Rx#:[id number] Mvi, Adult No.4 with Vit 30 40 K 10 ml Trace (Conc-1Ml/ Dose) 1 ml Sodium Acetate 40 meq Potassium Acetate 20 meq Calcium Gluconate 1.5 gm Magnesium Sulfate gm 0.5 gm In Amino Acids 5 %/Dextrose 20 % 1,000 ml @ 40 mls/hr IV .Q24H [facility] Rx#:[id number] Norepinephrine 32 mg In 154.830 54.312 6.813 Sodium Chloride 0.9% 218 ml @ 0.03 MCG/KG/MIN 1. 097 mls/hr IV .Q24H [facility] Rx#:[id number] Piperacillin-Tazobactam 3 25 .375 gm In Sodium Chloride 0.9% 100 ml @ 25 mls/hr IVPB Q12HR [facility] Rx #:[id number] Piperacillin-Tazobactam 3 25 .375 gm In Sodium Chloride 0.9% 100 ml @ 25 mls/hr IVPB Q8HR [facility] Rx# :[id number] Sodium Chloride 0.9% 1, 150 000 ml @ 75 mls/hr IV . [id number] [facility] Rx#:[id number] Vancomycin 1,500 mg In 500 Sodium Chloride 0.9% 500 ml 500 ml @ 167 mls/hr IVPB ONCE ONE Rx#: [id number] Vasopressin 20 unit In 51 Sodium Chloride 0.9% 50 ml @ 0.03 UNITS/MIN 4.59 mls/hr IV .Q11H7M [facility] Rx# :[id number] propofoL 1,000 mg In 290.32 244.53 96.33 Empty Bag 1 bag @ 20 MCG/ KG/MIN 9.36 mls/hr IV . [id number] [facility] Rx#:[id number] Output: Gastric Drainage 400 100 Drainage 100 540 75 Left Abdomen 240 35 Right Abdomen 100 300 40 Urine 573 680 135 Other: Voiding Method Indwelling Catheter Indwelling Catheter Indwelling Catheter # Voids 3 ABP, PAP, CO, CI - Last Documented Arterial Blood Pressure 134/65 - Exam No acute distress, sedated on propofol,, comfortable, intubated on the mechanical ventilator. The patient has an orotracheal and orogastric tube in place. HEENT examination is grossly unremarkable. Mucous membranes are moist. No oral lesions. The patient has a triple-lumen catheter in the left subclavian. Neck supple. Full range of motion. No adenopathy thyromegaly or neck vein distention. Cardiac exam revealed the PMI to be normally situated and sized. The rhythm was regular and no extrasystoles were noted during several minutes of auscultation. The first and second heart sounds were normal and physiologic splitting of the second heart sound was noted. There were no murmurs, rubs, clicks, or gallops. The patient is in sinus tachycardia. Lungs reveal mild scattered rhonchi. No wheezes or crackles. Breath sounds equal. Diminished breath sound lung base bilaterally. Abdomen distended without bowel sounds. J-tube is noted. Patient also has an NG tube in place. Mid abdominal wound which is dry clean and intact and the patient has absent bowel sounds. Extremities are intact. No cyanosis clubbing trace edema lower extremities bilaterally Skin is without rash or lesion. The wound at the Mediport site is dry and the area has been sutured Neurologic examination is brief but nonfocal. Currently sedated on propofol. - Labs CBC & Chem 7: 11/28/23 04:49 11/28/23 04:49 Labs: Abnormal Lab Results - Last 24 Hours (Table) 11/27/23 11/27/23 11/27/23 Range/Units 16:45 18:30 23:58 WBC (3.8-10.6) k/uL RBC (4.30-5.90) m/uL Hgb (13.0-17.5) gm/dL Hct (39.0-53.0) % RDW (11.5-15.5) % Plt Count (150-450) k/uL ABG pH (7.35-7.45) ABG HCO3 (21-25) mmol/L ABG O2 Saturation (94-97) % Hemoglobin (13.0-17.5) gm/dL Chloride 113 H (98-107) mmol/L Carbon Dioxide 18 L (22-30) mmol/L BUN 89 H (9-20) mg/dL Creatinine 4.26 H (0.66-1.25) mg/dL Glucose 268 H (74-99) mg/dL POC Glucose (mg/dL) 306 H 282 H (70-110) mg/dL Calcium 6.5 L (8.4-10.2) mg/dL 11/28/23 11/28/23 11/28/23 Range/Units 04:49 04:49 04:56 WBC 11.2 H (3.8-10.6) k/uL RBC 2.82 L (4.30-5.90) m/uL Hgb 7.9 L D (13.0-17.5) gm/dL Hct 25.6 L (39.0-53.0) % RDW 19.7 H (11.5-15.5) % Plt Count 46 L D (150-450) k/uL ABG pH 7.32 L (7.35-7.45) ABG HCO3 20 L (21-25) mmol/L ABG O2 Saturation 97.2 H (94-97) % Hemoglobin 7.8 L (13.0-17.5) gm/dL Chloride 114 H (98-107) mmol/L Carbon Dioxide 18 L (22-30) mmol/L BUN 93 H (9-20) mg/dL Creatinine 4.81 H (0.66-1.25) mg/dL Glucose 238 H (74-99) mg/dL POC Glucose (mg/dL) (70-110) mg/dL Calcium 6.9 L (8.4-10.2) mg/dL 11/28/23 Range/Units 11:31 WBC (3.8-10.6) k/uL RBC (4.30-5.90) m/uL Hgb (13.0-17.5) gm/dL Hct (39.0-53.0) % RDW (11.5-15.5) % Plt Count (150-450) k/uL ABG pH (7.35-7.45) ABG HCO3 (21-25) mmol/L ABG O2 Saturation (94-97) % Hemoglobin (13.0-17.5) gm/dL Chloride (98-107) mmol/L Carbon Dioxide (22-30) mmol/L BUN (9-20) mg/dL Creatinine (0.66-1.25) mg/dL Glucose (74-99) mg/dL POC Glucose (mg/dL) 307 H (70-110) mg/dL Calcium (8.4-10.2) mg/dL Microbiology - Last 24 Hours (Table) 11/26/23 00:30 Gram Stain - Final Sputum Sputum Culture - Final Citrobacter freundii Pseudomonas aeruginosa 11/26/23 12:22 Blood Culture - Preliminary Blood Assessment and Plan Plan: Acute hypoxic respiratory failure and the patient failed extubation following exploratory laparotomy. He had to be reintubated. The patient has bilateral pleural effusion and infiltrates in lung base bilaterally. Blood gas was noted. The patient chest x-ray from today shows lower lobe consolidation slightly worse on the right. The sputum culture showing a combination of Citrobacter and Pseudomonas aeruginosa. 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 Patient also has a J-tube in place. Both of the tubes are connected to suction and the patient continues to have abdominal pain with o ngoing concern of a small bowel obstruction and the patient scheduled to undergo elective nephrectomy today. Small bowel perforation with abdominal contamination. The patient is status post expiratory laparotomy and small bowel resection and insertion of another jejunostomy tube. The patient is postop day # 3 Peritonitis secondary to above Septic shock secondary to above, the pressor requirements have improved compared to yesterday. Atrial fibrillation with rapid medical response, currently on amiodarone drip at 0.5 mg/min. Remains tachycardic. Acute kidney injury, secondary to above.. Patient received IV Lasix over the past 24 hours and urine output improved. The patient is showing signs of third spacing and volume overload. Acute hypoxic respiratory failure requiring intubation mechanical ventilation secondary to aspiration during EGD on 11/12/2023. Patient was extubated on 11/14/2023. The patient was reintubated on 11/25/2023 following his abdominal surgery. Acute aspiration during upper endoscopy most likely secondary to gastric outlet obstruction secondary to non-Hodgkin's lymphoma. weight loss most likely secondary non-Hodgkin's lymphoma involving the stomach. Plan: Continue ventilator support, no change in the mechanical ventilator for today Keep the patient sedated on propofol and titrated dose for adequate sedation Keep the patient n.p.o. Keep the NG tube to suction as well as the J-tube, discussed output with a general surgeon TPN was started normal saline and this will be reduced to 75 cc an hour Continue IV Zosyn and vancomycin, consider further antibiotic modification with infectious disease. Citrobacter in the sputum is intermediately sensitive to Zosyn. Continue pressors and the patient is currently on a combination of norepinephrine and vasopressin. IV Lasix Atrial fibrillation is an ongoing issue. The patient is maintained on amiodarone 0.5 mg/min. IV Lasix Nephrology consultation Monitor renal function Avoid nephrotoxic agents We will continue to follow. Condition is critical. Had a lengthy discussion with the family at the bedside. General surgery is on the case. Oncology on the case. This evaluation was done more than 30 minutes. Time with Patient: Greater than 30
[2023-11-28 16:01] LABS: INR 0.9 (<1.2); Partial Thromboplastin Time 26.9 sec (22.0-30.0); Prothrombin Time 9.7 sec (10.0-12.5)
[2023-11-28 17:20] LABS: Glucose,Whole Blood 354 mg/dL (70-110)
[2023-11-28] MEDS: FUROSEMIDE 10 MG/ML 10 ML VIAL IV SCH (17:26)
--- NOTE | 2023-11-28 18:06 | P.PN ---
Progress Note - Text Progress Note Date: 11/28/23 Chief Complaint: Aspirated This is a 73-year-old patient, follows with Dr. Patricia Deal. Patient was seen this morning in the ICU. Patient's and daughter at the bedside. History obtained predominantly by the . Patient been having trouble with his stomach symptoms for close to 8 months. Patient underwent EGD by Dr. Sahara Cheng yesterday. Patient was found to have ulcerated around the antrum and obstruction to the pylorus. A lot of retained food was found. Patient aspirated. Had to be intubated and brought to the ICU. On a Levophed drip. FiO2 50 and a PEEP of 6. Patient had been losing weight lost about 25 pounds. Previously has a history of mitral valve prolapse. November 13: ICU. Patient remains on Precedex drip and propofol drip. Did not do well attempted extubation yesterday. Patient been off Levophed. NG tube to suction. Spoke to patient's and son at the bedside. Biopsy results awaited. Hemoglobin dropped to 6.9 this morning. Get a unit of blood. November 14: ICU. Up in a chair. Extubated yesterday. NG tube to suction. at the bedside. 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 Oncology was consulted. They have ordered a port. Results discussed with Dr. Sahara Cheng. General surgery was consulted for J-tube placement. Discussed with at the bedside. Patient getting IV fluids, IV Zosyn,. Patient has been on IV amiodarone for A-fib-back in sinus rhythm. Multiple PACs. Did receive unit of blood yesterday. Also IV ferric gluconate. November 15: ICU. Patient earlier today underwent jejunostomy tube placement and a port placement. Patient awake. Answering questions. NG tube to suction present. Updated patient's . Patient remains on IV amiodarone and IV Zosyn. November 16: ICU. Up in the chair. NG tube present but not to suction. Trickle feeding through the jejunostomy tube should be started today. Dietitian has been on board. IV Zosyn to continue. Patient's and his sister at the bedside. Discussed. Also spoke with Dr. Serna. Given patient has no other predisposing cardiac factors for the A-fib except acute illness. His LV function is normal. Left atrium is normal. He has already been loaded with IV amiodarone. Will switch him to oral Lopressor 12.5 twice daily. Hence will DC amiodarone. Patient yesterday had wheezing was put on bronchodilators steroids per pulmonary. November 17: Propped up in bed. NG tube was discontinued. Sinus rhythm. Remains NPO. Getting G-tube feeding at 40 cc an hour. Dietitian following. Get arrangements done for DC home tomorrow including tube feeding. Increase activity discussed with patient and elder daughter at the bedside. Still requiring oxygen. Incentive spirometry. November 18: Patient up in recliner. Earlier today spoke to 7th grade social studies teacher David. Informed patient is rather weak and will be going to the [facility]. Looking at authorization. Denae came to the room and spoke to patient his and his daughter. They are very keen to take the patient home as 3 daughters all nurses and they will take care of him at home. Patient earlier today to abdominal cramping and some loose stools.'s tube feeding was held. Told the nurse to start back at the rate of 40 cc an hour. He was before the getting it at 55 cc an hour. Incentive spirometry was again emphasized. Patient remains on 4 L of oxygen. November 19: I saw the patient this morning. Hence I am in the evening. Morning was sitting with his sons. Has some edema. Lungs had crackles I gave him 40 mg of Lasix. He did make good urine. Tube feeding was held from the previous evening of because of abdominal cramping. Acute abdominal series showed nonspecific bowel gas pattern and SBO to be ruled out. Family and patient was updated. Told him discharge will depend on day by day. Later this afternoon CT scanAnd abdomen pelvis done. Showed small bowel to be 3 point centimeter dilated. Some anasarca. Gastric findings. Gallstones. Later spoke to Dr. Irby from general surgery. They will further review and decide about further plan of action. Will give further dose of IV Lasix because of fluid overload from likely hypoalbuminemia and IV fluids previously received. Patient may take his pills by mouth. Total time spent today about 1 hour with over 40 minutes of discussion. Patient did state his breathing is better after Lasix this morning. November 20: Saw the patient this morning. was present. Patient received 2 more doses of Lasix. Diuresed well. Breathing much better. Lungs are sounding better. Discussed with Dr. Zepeda other surgeon. He is taking 3 cc out of the balloon and the gastrostomy tube. Started trickle feeding at 5 cc an hour. Will see how this does. Later in the day ran into the and the daughter again. Did update them on the same. Dilaudid was discontinued yesterday but morphine was ordered by surgery for patient having pain. Concerns about GI issues with that we will DC the morphine. As family does not want the same. November 21: Patient reclining bed. Tired. Several family members at the bedside. Including his and eldest daughter. Patient started on trickle feed yesterday at 5 cc an hour. This morning he has been on 10 cc an hour. Still having some loose stools. C. difficile was ordered. Patient on 2 L of nasal cannula. Has diuresed well. Will give an additional dose of Lasix today. If C. difficile is negative and the diarrhea is from the tube feedings we may have to use a fecal management system to keep him comfortable. Otherwise patient remains NPO. Dietitian is following the patient. Care was discussed length with patient the and daughter at the bedside. Questions answered. Liquid Tylenol has been added for abdominal pain. Avoid narcotics. Elevated white count likely from Solu-Medrol 11/23/2023--patient was feeling better today. Multiple family member at bedside. No issues overnight. Normal saline at 10 cc an hour, tube feeding at 20 cc an hour, remains on Zosyn, on 3 L oxygen. Afebrile. Heart rate 62, respiratory rate 16, blood pressure 114/67, saturating 91% on 3 L. WBCs 14.5, 9.7 hemoglobin. Platelet 242. BMP is unremarkable. Pulmonary and general surgery following. General surgery recommended to continue tube feeds at 20 cc/h. 11/24/2023--patient reported significant abdominal discomfort, also noted to have leak around G-tube. General surgery is following, evaluated the patient at bedside, adjusted tube feeds. Also reported having diarrhea, on 2 L oxygen, went up to 5 L. Blood pressure was low, 500 mL fluid bolus with close monitoring of respiratory status ordered. Currently on DuoNebs, Solu-Medrol, will continue Zosyn. Chest x-ray showed a left lower lobe infiltrate. Abdominal x-ray showed multiple air-fluid levels. CT abdomen showed multiple dilated small bowel loops, consistent with obstruction, pneumoperitoneum, cholelithiasis and ascites. WBCs 14.1, platelet 255, hemoglobin 8.9. NG tube in place. Family at bedside. patient transferred to SICU for close monitoring. 11/25/23--patient is currently in the ICU, required Levophed overnight due to low blood pressure, low urine output with creatinine trending up. Nephrology following. Substation Operator Helper also following. Patient remains n.p.o., NG tube in place, following NG tube insertion patient had total of 2 L output, J-tube was draining approximately 200 cc over last 8 hours, continues to have abdominal pain and abdominal tenderness. Patient on IV fluids. Currently on 4 L oxygen. WBCs 8.2, hemoglobin 12.3, platelet 188. Chest x-ray earlier today showed right sided port and a stable left lung airspace disease, NG tube in place. Patient currently on Zosyn, on IV Dilaudid for pain control, on IV Solu-Medrol. General surgery planning for OR today, started on TPN. 11/26/23--patient was seen and examined today. Patient is currently sedated, intubated on mechanical ventilation. Family at bedside. Patient underwent ex lap, abdominal washout, small bowel resection with new feeding jejunostomy tube placement yesterday, small bowel was noted to be perforated with significant contamination of abdominal cavity. Patient is currently on vancomycin and Zosyn. Creatinine went up to 2.85, nephrology following, recommended to continue IV fluids, avoid nephrotoxin Preserved EF on echocardiogram.. Patient currently on Levophed, vasopressin in the ICU for close monitoring. Patient is afebrile, heart rate 122, blood pressure 129/76, currently on mechanical ventilation, sedated. November 26: ICU. Intubated. FiO2 60 and a PEEP of 5. Drips include IV amiodarone. Heart rate was up early did get fired microgram of IV digoxin and 2.5 mg of IV Lopressor. Did drop her blood pressure bit. Urine output was low. Received 80 mg of IV Lasix. Ahmet to 150 cc. Other drips include IV propofol, vasopressin, Levophed. TPN was started yesterday. Antibiotics include IV Zosyn and vancomycin. Patient has a J-tube to drainage to gravity. Spoke to patient's younger daughter and at the bedside. Prognosis guarded. Continue current treatment plan. Chest x-ray shows right lower lobe consolidation. Small pleural effusion. November 27: ICU. Intubated. FiO2 55 and a PEEP of 5. Antibiotics include IV vancomycin. Drips include Levophed at a small dose, IV vasopressin, propofol, amiodarone. Patient converted to sinus rhythm this morning. Getting TPN and normal saline at 75 cc an hour. Urine output about 25 cc an hour. RAYA drain put out about 260 cc last 12 hours that is last mine shifter. NG tube with bilious output. And also GI J-tube output to gravity. Spoke to patient's and daughter at the bedside. They understand patient still not out of the kee. Platelets have dropped-therefore probably Zosyn stopped. Active Medications Acetaminophen (Acetaminophen Tab 325 Mg Tab) 650 mg PO Q4HR PRN PRN Reason: Fever and/ or Pain Last Admin: 11/22/23 08:46 Dose: 650 mg Acetaminophen (Acetaminophen Oral Susp (Peds) 3,840 Mg/120 Ml Bottle) 480 mg PO Q4HR PRN PRN Reason: Fever Hydrocodone Bitart/Acetaminophen (Hydrocodone/Apap 5-325mg 1 Each Tab) 1 each PO Q4HR PRN PRN Reason: Pain Last Admin: 11/25/23 08:03 Dose: 1 each Albuterol/Ipratropium (Ipratropium-Albuterol 3 Ml Neb) 3 ml INHALATION RT-QID NRIMAL Last Admin: 11/28/23 15:17 Dose: 3 ml Albuterol/Ipratropium (Ipratropium-Albuterol 3 Ml Neb) 3 ml INHALATION RT-Q2H PRN PRN Reason: Shortness Of Breath Or Wheezing Last Admin: 11/26/23 04:04 Dose: 3 ml Chlorhexidine Gluconate (Chlorhexidine Gluconate 15 Ml Cup) 15 ml MUCOUS MEM BID [facility] Last Admin: 11/28/23 08:40 Dose: 15 ml Dextrose/Water (Dextrose 50% Syringe 50 Ml) 25 ml IVP PER PROTOCOL PRN; Protocol PRN Reason: Hypoglycemia Dextrose/Water (Dextrose 50% Syringe 50 Ml) 50 ml IVP PER PROTOCOL PRN; Protocol PRN Reason: Hypoglycemia Furosemide (Furosemide 10 Mg/Ml 10 Ml Vial) 80 mg IV Q12HR [facility] Stop: 11/28/23 18:00 Last Admin: 11/28/23 17:26 Dose: 80 mg Furosemide (Furosemide 10 Mg/Ml 10 Ml Vial) 80 mg IV Q12H [facility] Hydromorphone HCl (Hydromorphone 1 Mg/Ml 1 Ml Syringe) 1 mg IVP Q3HR PRN PRN Reason: Pain Last Admin: 11/28/23 17:32 Dose: 1 mg Propofol 1,000 mg/ IV Solution 100 mls @ 9.36 mls/hr IV .[id number] [facility]; Protocol Last Admin: 11/28/23 17:28 Dose: 50 mcg/kg/min, 23.4 mls/hr Vasopressin 20 unit/ Sodium (Chloride) 51 mls @ 4.59 mls/hr IV .[id number] [facility]; Protocol Last Admin: 11/28/23 13:08 Dose: 0.03 units/min, 4.59 mls/hr Norepinephrine Bitartrate 32 (mg/ Sodium Chloride) 250 mls @ 1.097 mls/hr IV .Q24H [facility]; Protocol Last Titration: 11/28/23 16:30 Dose: 0 mcg/kg/min, 0 mls/hr Parenteral Vitamin Supplement 10 ml/ Zinc/Copper/Manganese/Selenium 1 ml/ Sodium Acetate 40 meq/ Potassium Acetate 20 meq/ Calcium Gluconate 1.5 gm/Magnesium Sulfate 0.5 gm/Amino Acids/Dextrose 1,057 mls @ 40 mls/hr IV .Q24H [facility] Stop: 11/29/23 03:59 Last Admin: 11/28/23 10:02 Dose: Not Given Piperacillin Sod/Tazobactam (Sod 3.375 gm/ Sodium Chloride) 100 mls @ 25 mls/hr IVPB Q12HR [facility]; Protocol Last Admin: 11/28/23 08:43 Dose: 25 mls/hr Amiodarone HCl 450 mg/ (Dextrose/Water) 250 mls @ 16.667 mls/hr IV .Q15H [facility]; Protocol Stop: 11/29/23 12:00 Parenteral Vitamin Supplement 10 ml/ Zinc/Copper/Manganese/Selenium 1 ml/ Sodium Acetate 40 meq/ Potassium Acetate 20 meq/ Calcium Gluconate 1.5 gm/Magnesium Sulfate 0.25 gm/Amino Acids/Dextrose 1,056.5 mls @ 40 mls/hr IV .Q24H [facility] Sodium Chloride (Saline 0.9%) 1,000 mls @ 75 mls/hr IV .[id number] [facility] Last Admin: 11/28/23 17:28 Dose: 75 mls/hr Insulin Aspart (Insulin Aspart (Novolog) 100 Unit/Ml Vial) 0 unit SQ 0000,0600,1200,1800 [facility]; Protocol Last Admin: 11/28/23 17:27 Dose: 10 unit Lidocaine HCl (Lidocaine 1% (10mg/Ml) For Iv Start) 0.1 ml INTRADERMA PER PROTOCOL PRN PRN Reason: IV Start Stop: 12/12/23 05:39 Methylprednisolone Sodium Succinate (Methylprednisolone Sod Succi 40 Mg/Ml 1 Ml Vial) 40 mg IV Q12HR [facility] Last Admin: 11/28/23 08:43 Dose: 40 mg Metoprolol Tartrate (Metoprolol Tartrate 5 Mg/5 Ml Vial) 2.5 mg IVP Q6HR PRN PRN Reason: Heart Rate - HIGH Last Admin: 11/27/23 08:25 Dose: 2.5 mg Miscellaneous Information (Magnesium Replacement Protocol 1 Each [facility]) 1 each MISCELLANE DAILY PRN; Protocol PRN Reason: Per Protocol Miscellaneous Information (Vancomycin Iv Per Pharmacy 1 Each [facility]) 1 each MISCELLANE DIRECTED PRN; Protocol PRN Reason: Per Protocol Morphine Sulfate (Morphine Sulfate 2 Mg/Ml Syringe) 1 mg IVP Q4HR PRN PRN Reason: Pain Control Last Admin: 11/26/23 15:26 Dose: 1 mg Morphine Sulfate (Morphine Sulfate 2 Mg/Ml Syringe) 2 mg IVP Q4HR PRN PRN Reason: Pain/Discomfort Last Admin: 11/26/23 09:35 Dose: 2 mg Naloxone HCl (Naloxone 0.4 Mg/Ml 1 Ml Vial) 0.2 mg IV Q2M PRN PRN Reason: Opioid Reversal Pantoprazole Sodium (Pantoprazole 40 Mg/10 Ml Vial) 40 mg IVP BID [facility] Last Admin: 11/28/23 08:40 Dose: 40 mg Past medical history to include: GERD Social history: . No smoking. Physical examination: VITAL SIGNS: 98.4, 70, 28, 109 x 58, GENERAL: Sedated, right chest wall port EYES: Pupils equal. Conjunctiva edouard l. HEENT: External appearance of nose and ears normal, oral cavity-endotracheal tube. NG tube NECK: JVD unable to assess; masses not palpable. HEART: First and second heart sounds are normal; edema, present LUNGS: Respiratory rate increased, decreased breath sounds t ABDOMEN: Soft, nontender, liver spleen not palpable, no masses palpable..jejunostomy tube-attached to gravity. RAYA drain. Incision with stitches PSYCH: Sedated INVESTIGATIONS, reviewed in the clinical context: November 27: White 11.2 hemoglobin 7.9 platelets 46 potassium 4.3 BUN 93 creatinine 4.81 November 26: White count 13 hemoglobin 9.4 platelets sodium 140 potassium 4.4 BUN 83 creatinine 3.71 calcium 6.1 albumin 2.1 November 20: White count 14.4 hemoglobin 8.8 platelets 229 potassium 4.1 BUN [address] scan abdomen [November 19] possible small bowel obstruction Stool: C. difficile negative November 16: White count 9.1 hemoglobin 7.9 platelets 259 potassium 4.3 creatinine 0.92 November 15: WBC 13 hemoglobin 7.7 platelets 248 potassium 4.3 creatinine 0.87 2D echo: EF 55 to 60%. November 14: White count 10.7 hemoglobin 7.5 platelets 239 potassium 4.2 creatinine 0.96 Kidneys bladder: Unremarkable November 13: White count 12 hemoglobin 6.9 platelets 276 potassium 4.4 creatinine 1.21 magnesium 1.8 iron 6 TIBC 365% saturation 1.64 transferrin 261 ferritin 34.6 B12 569 folate 4.4 November 12: White count 14 hemoglobin 7.6 platelets 333 sodium 136 BUN 26 creatinine 1.57 November 11: Creatinine 0.86 EGD: Large amount of retained solid liquid food noted in the stomach. Large superficial gastric antral ulceration involving most of the antrum extending into the pylorus causing pyloric stenosis. Biopsies were obtained. Chest x-ray film personally reviewed by me-scattered infiltrates Assessment plan: -Aspiration pneumonitis bilateral from retained gastric contents mostly food and liquids, causing acute hypoxic respiratory failure: IV Zosyn Pulmonary following -Acute pulmonary edema and fluid overload from hypoalbuminemic state and fluids from IV.: Better -Small l bowel perforation at site of jejunostomy tube tip with balloon..: Portion of small bowel resected. On November 24. New J-tube was placed.-To drainage to gravity N.p.o. NG tube -Acute kidney injury. Possible ATN from hypotensive shock: Worsening Renal ultrasound unremarkable Followed by nephrology -Nutrition Jejunostomy tube placed November [address] Ewing Getting TPN. -Acute recurrent atrial fibrillation-converted to sinus rhythm today IV amiodarone. Cardiology following Lopressor intermittently -Acute hypoxic respiratory failure from aspiration pneumonia, status post ventilator assisted: Reintubated November 25. FiO2 60 PEEP of 5 -Normocytic anemia likely to secondary underlying lymphoma Iron deficiency anemia Received a unit of blood. IV iron. -Severe thrombocytopenia. Would consider coagulation disorder secondary to infection., In the setting of underlying lymphoma. Zosyn stopped Hematology following. -Acute blood loss anemia, Received 1 unit of blood -GERD PPI -Acute diarrhea secondary to tube feeding.: Resolved C. difficile ruled out. -Large superficial gastric antral ulceration involving the gastric antrum extending into the pylorus with gastric outlet obstruction. 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 Port placed. For outpatient PET scan. -Full code Drop in platelets. Zosyn stopped. Multiple consults are following. Discussed with and her sister. They understand patient is still critical Past Medical History Past Medical History: GERD/Reflux History of Any Multi-Drug Resistant Organisms: None Reported Past Surgical History: Heart Catheterization Additional Past Surgical History / Comment(s): colonsocopy,spinal injection, Past Anesthesia/Blood Transfusion Reactions: No Reported Reaction Past Psychological History: No Psychological Hx Reported Smoking Status: Never smoker Past Alcohol Use History: None Reported Past Drug Use History: None Reported
[2023-11-28 18:14] LABS: Hepatitis B Surface AB- Quant 3.5 mIU/mL; Hepatitis B Surface Antigen Nonreactive (Nonreactive)
--- NOTE | 2023-11-28 21:41 | P.PN ---
Subjective Patient seen and evaluated at bedside. abdomen soft, j tube producing feculent output. Objective - Vital Signs Vital signs: Vital Signs Temp 97.9 F 11/28/23 20:00 Pulse 69 11/28/23 21:00 Resp 28 H 11/28/23 21:00 BP 125/71 11/28/23 16:00 Pulse Ox 99 11/28/23 21:00 FiO2 60 11/28/23 20:00 Intake & Output 11/28/23 11/28/23 11/29/23 06:59 18:59 06:59 Intake Total 2299.842 2117.262 517.026 Output Total 1320 385 515 Balance 610.565 7719.262 2.026 Weight 110.8 kg 110.8 kg Intake: IV 1971 495 350 0.9 KVO 71 120 20 Mvi, Adult No.4 with Vit 80 K 10 ml Trace (Conc-1Ml/ Dose) 1 ml Sodium Acetate 40 meq Potassium Acetate 20 meq Calcium Gluconate 1.5 gm Magnesium Sulfate gm 0.5 gm In Amino Acids 5 %/Dextrose 20 % 1,000 ml @ 40 mls/hr IV .Q24H [facility] Rx#:[id number] Piperacillin-Tazobactam 3 100 100 .375 gm In Sodium Chloride 0.9% 100 ml @ 25 mls/hr IVPB Q8HR [facility] Rx# :[id number] Sodium Chloride 0.9% 1, 1800 375 000 ml @ 150 mls/hr IV . Q6H40M [facility] Rx#:[id number] Sodium Chloride 0.9% 1, 150 000 ml @ 75 mls/hr IV . [id number] [facility] Rx#:[id number] Intake, IV Titration 414.575 4908.262 167.026 Amount Amiodarone 450 mg In 211.115 Dextrose 5% in Water 250 ml @ 0.5 MG/MIN 16.667 mls/hr IV .Q15H [facility] Rx#: [id number] Mvi, Adult No.4 with Vit 30 K 10 ml Trace (Conc-1Ml/ Dose) 1 ml Sodium Acetate 40 meq Potassium Acetate 20 meq Calcium Gluconate 1 gm Magnesium Sulfate gm 1 gm In Amino Acids 5 %/Dextrose 20 % 1,000 ml @ 40 mls/hr IV .Q24H [facility] Rx#:[id number] Mvi, Adult No.4 with Vit 280 40 K 10 ml Trace (Conc-1Ml/ Dose) 1 ml Sodium Acetate 40 meq Potassium Acetate 20 meq Calcium Gluconate 1.5 gm Magnesium Sulfate gm 0.25 gm In Amino Acids 5 %/Dextrose 20 % 1 ,000 ml @ 40 mls/hr IV . Q24H [facility] Rx#:[id number] Mvi, Adult No.4 with Vit 40 K 10 ml Trace (Conc-1Ml/ Dose) 1 ml Sodium Acetate 40 meq Potassium Acetate 20 meq Calcium Gluconate 1.5 gm Magnesium Sulfate gm 0.5 gm In Amino Acids 5 %/Dextrose 20 % 1,000 ml @ 40 mls/hr IV .Q24H [facility] Rx#:[id number] Norepinephrine 32 mg In 54.312 11.177 0 Sodium Chloride 0.9% 218 ml @ 0.03 MCG/KG/MIN 1. 097 mls/hr IV .Q24H [facility] Rx#:[id number] Piperacillin-Tazobactam 3 25 .375 gm In Sodium Chloride 0.9% 100 ml @ 25 mls/hr IVPB Q12HR [facility] Rx #:[id number] Piperacillin-Tazobactam 3 25 .375 gm In Sodium Chloride 0.9% 100 ml @ 25 mls/hr IVPB Q8HR [facility] Rx# :[id number] Sodium Chloride 0.9% 1, 525 75 000 ml @ 75 mls/hr IV . [id number] [facility] Rx#:[id number] Sodium Chloride 0.9% 1, 150 000 ml @ 75 mls/hr IV . [id number] [facility] Rx#:[id number] Vasopressin 20 unit In 51 Sodium Chloride 0.9% 50 ml @ 0.03 UNITS/MIN 4.59 mls/hr IV .Q11H7M [facility] Rx# :[id number] propofoL 1,000 mg In 244.53 303.97 52.026 Empty Bag 1 bag @ 20 MCG/ KG/MIN 9.36 mls/hr IV . [id number] [facility] Rx#:[id number] Output: Gastric Drainage 100 275 Drainage 540 75 90 Left Abdomen 240 35 Right Abdomen 300 40 90 Urine 680 310 150 Other: Voiding Method Indwelling Catheter Indwelling Catheter Indwelling Catheter ABP, PAP, CO, CI - Last Documented Arterial Blood Pressure 106/52 - Exam gen: nad cv: rrr pul: non labored on minimal vent setting abd: soft, non distended, non peritoneal, surgical incisions c/d/i - Labs CBC & Chem 7: 11/28/23 04:49 11/28/23 04:49 Labs: Abnormal Lab Results - Last 24 Hours (Table) 11/27/23 11/28/23 11/28/23 Range/Units 23:58 04:49 04:49 WBC 11.2 H (3.8-10.6) k/uL RBC 2.82 L (4.30-5.90) m/uL Hgb 7.9 L D (13.0-17.5) gm/dL Hct 25.6 L (39.0-53.0) % RDW 19.7 H (11.5-15.5) % Plt Count 46 L D (150-450) k/uL PT (10.0-12.5) sec Fibrinogen (200-500) mg/dL ABG pH (7.35-7.45) ABG HCO3 (21-25) mmol/L ABG O2 Saturation (94-97) % Hemoglobin (13.0-17.5) gm/dL Chloride 114 H (98-107) mmol/L Carbon Dioxide 18 L (22-30) mmol/L BUN 93 H (9-20) mg/dL Creatinine 4.81 H (0.66-1.25) mg/dL Glucose 238 H (74-99) mg/dL POC Glucose (mg/dL) 282 H (70-110) mg/dL Calcium 6.9 L (8.4-10.2) mg/dL Triglycerides (0.00-149.00) mg/dL 11/28/23 11/28/23 11/28/23 Range/Units 04:49 04:56 11:31 WBC (3.8-10.6) k/uL RBC (4.30-5.90) m/uL Hgb (13.0-17.5) gm/dL Hct (39.0-53.0) % RDW (11.5-15.5) % Plt Count (150-450) k/uL PT (10.0-12.5) sec Fibrinogen (200-500) mg/dL ABG pH 7.32 L (7.35-7.45) ABG HCO3 20 L (21-25) mmol/L ABG O2 Saturation 97.2 H (94-97) % Hemoglobin 7.8 L (13.0-17.5) gm/dL Chloride (98-107) mmol/L Carbon Dioxide (22-30) mmol/L BUN (9-20) mg/dL Creatinine (0.66-1.25) mg/dL Glucose (74-99) mg/dL POC Glucose (mg/dL) 307 H (70-110) mg/dL Calcium (8.4-10.2) mg/dL Triglycerides 380.00 H (0.00-149.00) mg/dL 11/28/23 11/28/23 Range/Units 15:40 17:19 WBC (3.8-10.6) k/uL RBC (4.30-5.90) m/uL Hgb (13.0-17.5) gm/dL Hct (39.0-53.0) % RDW (11.5-15.5) % Plt Count (150-450) k/uL PT 9.7 L (10.0-12.5) sec Fibrinogen 712 H (200-500) mg/dL ABG pH (7.35-7.45) ABG HCO3 (21-25) mmol/L ABG O2 Saturation (94-97) % Hemoglobin (13.0-17.5) gm/dL Chloride (98-107) mmol/L Carbon Dioxide (22-30) mmol/L BUN (9-20) mg/dL Creatinine (0.66-1.25) mg/dL Glucose (74-99) mg/dL POC Glucose (mg/dL) 354 H (70-110) mg/dL Calcium (8.4-10.2) mg/dL Triglycerides (0.00-149.00) mg/dL Microbiology - Last 24 Hours (Table) 11/26/23 12:22 Blood Culture - Preliminary Blood 11/26/23 00:30 Gram Stain - Final Sputum Sputum Culture - Final Citrobacter freundii Pseudomonas aeruginosa Assessment and Plan Assessment: 73-year-old male with 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 Status post J-tube placement and required revision. Continues to require pressor therapy secondary to shock. Sputum growing gram- negative bacilli per microbiology. Awaiting blood cultures. Continue IV antibiotics. Case discussed in depth with family at bedside. Continue ICU care. Time with Patient: Less than 30
[2023-11-28 23:41] LABS: Glucose,Whole Blood 314 mg/dL (70-110)
[2023-11-29] MEDS: MVI, ADULT NO.4 WITH VIT K 10 ML, TRACE (CONC-1ML/DOSE) 1 ML, SODIUM ACETATE 40 MEQ, PO... IV SCH (03:46)
[2023-11-29 05:55] LABS: Glucose,Whole Blood 312 mg/dL (70-110)
[2023-11-29 06:07] LABS: ALT 12 U/L (4-49); AST 29 U/L (17-59); African American GFR (CKD) 11 (>60 ml/min/1.73 sqM); Albumin 1.9 g/dL (3.5-5.0); Alkaline Phosphatase 80 U/L (38-126); Anion Gap 9 mmol/L; Calcium 6.9 mg/dL (8.4-10.2); Carbon Dioxide 18 mmol/L (22-30); Chloride 113 mmol/L (98-107); Glucose 263 mg/dL (74-99); Magnesium 2.3 mg/dL (1.6-2.3); Non-African American GFR(CKD) 10 (>60 ml/min/1.73 sqM); Potassium 4.4 mmol/L (3.5-5.1); Sodium 140 mmol/L (137-145); Total Bilirubin 0.5 mg/dL (0.2-1.3); Total Protein 4.2 g/dL (6.3-8.2)
[2023-11-29 06:13] LABS: Anisocytosis Slight; HCT 23.3 % (39.0-53.0); Hypochromasia Marked; MCH 27.2 pg (25.0-35.0); MCV 90.5 fL (80.0-100.0); Mean Platelet Volume 11.5; RBC 2.57 m/uL (4.30-5.90); RDW 19.6 % (11.5-15.5); WBC 8.1 k/uL (3.8-10.6)
[2023-11-29 06:15] LABS: Blood Urea Nitrogen 106 mg/dL (9-20)
[2023-11-29 08:13] LABS: Platelet Count 32 k/uL (150-450)
[2023-11-29] MEDS: MEROPENEM 1 GM in SODIUM CHLORIDE 0.9% 100 ML IVPB SCH (09:20)
--- NOTE | 2023-11-29 09:54 | XR ---
EXAMINATION TYPE: Chest X-ray 1 View DATE OF EXAM: 11/29/2023 COMPARISON: 11/28/2023 INDICATION: Intubated difficulty breathing TECHNIQUE: Single frontal view of the chest is obtained. FINDINGS: The heart size is normal. The pulmonary vasculature is normal. Bibasilar infiltrates are present. Correlate for atelectasis or pneumonia. Small effusions are not ex cluded Endotracheal tube tip is above the josseline. Nasogastric tube transverses the thorax tip in the left up per quadrant of the abdomen. Right-sided central venous catheter is present with the tip in the right atrium. A central venous catheter is present with tip in superior vena cava region. IMPRESSION: 1. Bibasilar infiltrates. 2. Small pleural effusions may be present. 3. Multiple lines and catheters discussed above [facility], , 11/29/2023 9:11 AM
--- NOTE | 2023-11-29 10:32 | P.PN ---
Subjective Patient is seen in follow-up for acute kidney injury. Patient underwent exploratory laparotomy with small bowel obstruction NG tube replacement Sep tember 2023. Remains on vasopressin. Off Levophed. Amiodarone drip also discontinued. Intubated. Receiving TPN. Urine output 15 to 20 cc an hour. Vital signs stable. On vasopressor support. General: Resting in bed. HEENT: Intubated. LUNGS: Scattered rhonchi. HEART: Irregular rate and rhythm. ABDOMEN: Abdominal dressing noted. No drainage. EXTREMITITES: 1+ edema. Objective - Vital Signs Vital signs: Vital Signs Temp 97.4 F L 11/29/23 08:00 Pulse 63 11/29/23 10:15 Resp 28 H 11/29/23 10:15 BP 125/71 11/29/23 09:45 Pulse Ox 95 11/29/23 10:15 FiO2 55 11/29/23 08:00 Intake & Output 11/28/23 11/29/23 11/29/23 18:59 06:59 18:59 Intake Total 2117.262 1836.821 401.316 Output Total 385 1155 55 Balance 1732.262 681.821 346.316 Weight 110.8 kg 115.6 kg Intake: IV 495 1445 345 0.9 KVO 120 80 50 Meropenem 1 gm In Sodium 100 Chloride 0.9% 100 ml @ 33 .333 mls/hr IVPB Q12HR [facility] Rx#:[id number] Mvi, Adult No.4 with Vit 440 120 K 10 ml Trace (Conc-1Ml/ Dose) 1 ml Sodium Acetate 40 meq Potassium Acetate 20 meq Calcium Gluconate 1.5 gm Magnesium Sulfate gm 0.5 gm In Amino Acids 5 %/Dextrose 20 % 1,000 ml @ 40 mls/hr IV .Q24H [facility] Rx#:[id number] Piperacillin-Tazobactam 3 100 .375 gm In Sodium Chloride 0.9% 100 ml @ 25 mls/hr IVPB Q8HR [facility] Rx# :[id number] Sodium Chloride 0.9% 1, 375 000 ml @ 150 mls/hr IV . Q6H40M [facility] Rx#:[id number] Sodium Chloride 0.9% 1, 825 75 000 ml @ 75 mls/hr IV . [id number] [facility] Rx#:[id number] Intake, IV Titration 1622.262 391.821 56.316 Amount Amiodarone 450 mg In 211.115 Dextrose 5% in Water 250 ml @ 0.5 MG/MIN 16.667 mls/hr IV .Q15H [facility] Rx#: [id number] Mvi, Adult No.4 with Vit 280 40 K 10 ml Trace (Conc-1Ml/ Dose) 1 ml Sodium Acetate 40 meq Potassium Acetate 20 meq Calcium Gluconate 1.5 gm Magnesium Sulfate gm 0.25 gm In Amino Acids 5 %/Dextrose 20 % 1 ,000 ml @ 40 mls/hr IV . Q24H [facility] Rx#:[id number] Mvi, Adult No.4 with Vit 40 K 10 ml Trace (Conc-1Ml/ Dose) 1 ml Sodium Acetate 40 meq Potassium Acetate 20 meq Calcium Gluconate 1.5 gm Magnesium Sulfate gm 0.5 gm In Amino Acids 5 %/Dextrose 20 % 1,000 ml @ 40 mls/hr IV .Q24H [facility] Rx#:[id number] Norepinephrine 32 mg In 11.177 0.787 Sodium Chloride 0.9% 218 ml @ 0.03 MCG/KG/MIN 1. 097 mls/hr IV .Q24H [facility] Rx#:[id number] Piperacillin-Tazobactam 3 25 .375 gm In Sodium Chloride 0.9% 100 ml @ 25 mls/hr IVPB Q12HR [facility] Rx #:[id number] Piperacillin-Tazobactam 3 25 .375 gm In Sodium Chloride 0.9% 100 ml @ 25 mls/hr IVPB Q8HR [facility] Rx# :[id number] Sodium Chloride 0.9% 1, 525 75 000 ml @ 75 mls/hr IV . [id number] [facility] Rx#:[id number] Sodium Chloride 0.9% 1, 150 000 ml @ 75 mls/hr IV . [id number] [facility] Rx#:[id number] Vasopressin 20 unit In 51 51 Sodium Chloride 0.9% 50 ml @ 0.03 UNITS/MIN 4.59 mls/hr IV .Q11H7M [facility] Rx# :[id number] propofoL 1,000 mg In 303.97 225.034 56.316 Empty Bag 1 bag @ 20 MCG/ KG/MIN 9.36 mls/hr IV . [id number] [facility] Rx#:[id number] Output: Gastric Drainage 350 Drainage 75 420 Left Abdomen 35 90 Right Abdomen 40 330 Urine 310 385 55 Other: Voiding Method Indwelling Catheter Indwelling Catheter ABP, PAP, CO, CI - Last Documented Arterial Blood Pressure 150/71 - Labs CBC & Chem 7: 11/29/23 04:02 11/29/23 04:02 Labs: Abnormal Lab Results - Last 24 Hours (Table) 11/28/23 11/28/23 11/28/23 Range/Units 04:49 11:31 15:40 RBC (4.30-5.90) m/uL Hgb (13.0-17.5) gm/dL Hct (39.0-53.0) % MCHC (31.0-37.0) g/dL RDW (11.5-15.5) % Plt Count (150-450) k/uL PT 9.7 L (10.0-12.5) sec Fibrinogen 712 H (200-500) mg/dL Chloride (98-107) mmol/L Carbon Dioxide (22-30) mmol/L BUN (9-20) mg/dL Creatinine (0.66-1.25) mg/dL Glucose (74-99) mg/dL POC Glucose (mg/dL) 307 H (70-110) mg/dL Calcium (8.4-10.2) mg/dL Phosphorus (2.5-4.5) mg/dL Total Protein (6.3-8.2) g/dL Albumin (3.5-5.0) g/dL Triglycerides 380.00 H (0.00-149.00) mg/dL 11/28/23 11/28/23 11/29/23 Range/Units 17:19 23:40 04:02 RBC 2.57 L (4.30-5.90) m/uL Hgb 7.0 L (13.0-17.5) gm/dL Hct 23.3 L (39.0-53.0) % MCHC 30.0 L (31.0-37.0) g/dL RDW 19.6 H (11.5-15.5) % Plt Count 32 L (150-450) k/uL PT (10.0-12.5) sec Fibrinogen (200-500) mg/dL Chloride (98-107) mmol/L Carbon Dioxide (22-30) mmol/L BUN (9-20) mg/dL Creatinine (0.66-1.25) mg/dL Glucose (74-99) mg/dL POC Glucose (mg/dL) 354 H 314 H (70-110) mg/dL Calcium (8.4-10.2) mg/dL Phosphorus (2.5-4.5) mg/dL Total Protein (6.3-8.2) g/dL Albumin (3.5-5.0) g/dL Triglycerides (0.00-149.00) mg/dL 11/29/23 11/29/23 Range/Units 04:02 05:53 RBC (4.30-5.90) m/uL Hgb (13.0-17.5) gm/dL Hct (39.0-53.0) % MCHC (31.0-37.0) g/dL RDW (11.5-15.5) % Plt Count (150-450) k/uL PT (10.0-12.5) sec Fibrinogen (200-500) mg/dL Chloride 113 H (98-107) mmol/L Carbon Dioxide 18 L (22-30) mmol/L BUN 106 H* (9-20) mg/dL Creatinine 5.38 H (0.66-1.25) mg/dL Glucose 263 H (74-99) mg/dL POC Glucose (mg/dL) 312 H (70-110) mg/dL Calcium 6.9 L (8.4-10.2) mg/dL Phosphorus 5.0 H (2.5-4.5) mg/dL Total Protein 4.2 L (6.3-8.2) g/dL Albumin 1.9 L (3.5-5.0) g/dL Triglycerides (0.00-149.00) mg/dL Microbiology - Last 24 Hours (Table) 11/26/23 12:22 Blood Culture - Preliminary Blood 11/26/23 00:30 Gram Stain - Final Sputum Sputum Culture - Final Citrobacter freundii Pseudomonas aeruginosa Assessment and Plan Plan: Assessment: 1. Acute kidney injury secondary to ATN secondary to septic shock. Creatinine 0.86 on admission and is 5.38 today. Urine output 15 to 20 cc an hour despite IV Lasix. UA fairly benign. No hydronephrosis noted on imaging. 2. Perforated small bowel status post exploratory laparotomy with abdominal washout, small bowel resection and J-tube replacement November 25, 2023. 3. A-fib with RVR. s/p amiodarone drip. Also received digoxin this admission. 4. Recently diagnosed gastric B-cell lymphoma. 5. Septic shock. Likely abdominal source. On vasopressors and IV antibiotics. 6. Hypocalcemia secondary to acute kidney injury. Replaced. Improved. 7. Metabolic acidosis secondary to acute kidney injury. Plan: Maintain IV Lasix. Off IV fluids. Receiving TPN per surgery. Phosphorus level 4.5 dated November 28, 2023. Avoid nephrotoxins. Preserved EF noted on echocardiogram. Wean FiO2 and vasopressors. Case discussed at length with patient's family present at bedside. With worsening renal function, acidosis, oliguria, initiate renal replacement therapy. Consult vascular surgery for dialysis catheter placement. Plan for first treatment of hemodialysis today and second treatment tomorrow. Will do sled.
[2023-11-29 11:49] LABS: Glucose,Whole Blood 308 mg/dL (70-110)
[2023-11-29] MEDS: INSULIN DETEMIR (LEVEMIR) 100 UNIT/ML SYR SQ SCH (11:53)
--- NOTE | 2023-11-29 12:21 | P.PN ---
Subjective Progress Note Date: 11/29/23 Abdominal pain. This is a 73-year-old white male with history of chronic abdominal pain for the last 8 months has been treated with Protonix 40 mg daily for the last 3 months with no improvement. Patient had a 22 pound weight loss in the last [address] of the abdomen and pelvis 3 weeks ago showed thickening of the antral wall with pathological adenopathy posterior to the stomach suspicious of neoplasm. Today the patient underwent elective upper endoscopy to evaluate further, patient received IV sedation by anesthesia endoscope was inserted into the mouth, esophagus was intubated without any difficulty there was evidence of large amount of liquid and solid food noted in the stomach suggestive of gastric outlet obstruction. Scope could not be advanced through the pylorus, however in the prepyloric area there was a large superficial ulceration identified with multiple biopsies were done from this area. The body cardia and fundus could not adequately visualize because of large amount of retained food in the stomach. Scope was withdrawn back to the stomach and upon careful examination t he mucosa of the antrum body and cardia as well as the fundus appeared normal. Procedure was being performed and biopsies were done patient threw up and subsequently became hypoxic there was clearly evidence of witnessed aspiration anesthesia intubated the patient, procedure was terminated, and the patient was transferred to the ICU, this consult was initiated. Patient is now on assist- control rate of 20 tidal volume 500 FiO2 70% PEEP of 10 ABG is pending, earlier ABG showed profound hypoxia patient is on propofol at 50 mcg/kg/min, next ABG is pending. Chest x-ray showed chronic changes without evidence of acute pulmonary disease. Patient was seen and examined today on 11/13/2023, remains in the ICU, intubated mechanically ventilated, on assist-control rate of 20 tidal volume 500 FiO2 50% and PEEP of 10 ABG showed a pO2 of 143 pCO2 47 pH of 7.28 hence PEEP was cut down to 6, and increased rate to 22. Patient is still requiring IV fluid at 100 cc/h/LR. Requiring norepinephrine at 0.08 mcg/kg/min he is also on propofol at 50 mg/kg/min antibiotics arce patient is receiving Zosyn. Chest x-ray is showing worsening infiltrates specially in the left lung. This could be related to aspiration pneumonia. Patient had witnessed aspiration during endoscopy/upper endoscopy.WBC count is 14 hemoglobin 7.6 basic metabolic profile is normal BUN is 26 creatinine 1.57 obviously the patient sustained some acute kidney injury baseline creatinine 0.86 patient had received fluids over the last 24 hours, remains on fluids at 100 cc/h Patient with seen and examined today on 11/14/2023, patient remains in the ICU, intubated and mechanically ventilated. Failed weaning trial yesterday and he became quite agitated and desaturated once he went off propofol. Had to be placed back on assist-control mode of mechanical ventilation and sedation. Today the patient is on assist-control rate of 22 tidal volume 500 FiO2 50% PEEP of 6. ABG showed a pO2 of 123 pCO2 51 pH of 7.32, and I cut down his FiO2 down to 45%, patient is receiving a unit of packed RBCs for hemoglobin of 6.9 today. Patient had an episode of A-fib RVR at 3 AM in the morning, seen by cardiology, and recommended patient goes on amiodarone. Still requiring norepinephrine at 0.05 mg/kg/min, he is on LR at 100 cc/h propofol at 50 mg/kg/min. Remains empirically on Zosyn for aspiration pneumonia. My plan today is transitioning the patient to Precedex, hopefully discontinue propofol, and at least give the patient a decent weaning trial or at least check weaning parameters before we proceed to weaning trial. Chest x-ray continues to show evidence of pneumonia mostly in the left lung and left lower lobe more specifically. Some pulmonary vascular congestion is noted with interstitial edema, small pleural effusion is also noted/left side. WBC count today is 12 hemoglobin 6.9 basic metabolic profile is normal bicarb is 25, BUN is 25 creatinine is improving down to 1.21 from 1.57 yesterday Patient was evaluated today on 11/15/2023, patient remains in the ICU, he was extubated yesterday, and his extubation was relatively uneventful. However the patient continues to have nasogastric tube in place, his pathology report came back showing non-Hodgkin's lymphoma, patient has gastric outlet obstruction, and the recommendation by GI is to consult surgery for a jejunostomy tube which is appropriate. Patient will be seen today by oncology and he will be seen by general surgery. In the meantime patient is comfortable, he is on 5 L nasal cannula he has LR running at 100 cc/h, he is remains on Zosyn for aspiration pneumonia remains on amiodarone which was started by cardiology for atrial fibrillation with RVR, presently in sinus rhythm. Cannot switch him to oral because of the fact that remains n.p.o., patient remains on TPN. WBC count is 10.7 hemoglobin 7.5 electrolytes are normal renal profile is normal, creatinine normalized to 0.96 Patient was evaluated today on 11/16/2023, remains in the ICU, on 5 L nasal cannula remains on amiodarone at 0.5 mg/min remains on LR at 100 cc/h, however his chest x-ray is showing some component of interstitial edema or could be findings related to his recent episode of aspiration/aspiration pneumonia, nonetheless the patient seems to be a bit symptomatic, he has intermittent cough and wheezing, I am recommending Lasix 40 mg IV push, cut down his IV fluid to 50 cc/h, continue Zosyn, patient will be placed on DuoNeb updrafts and on Solu- Medrol. Patient is scheduled to have jejunostomy-tube placement today. WBC count is 13 hemoglobin 7.7 basic metabolic profile is normal and renal profile is normal Patient was evaluated today on 11/17/2023, patient underwent uneventful placement of a jejunostomy tube yesterday, in the ICU on 5 L, patient is relatively stable, not in any distress, patient continues to have nasogastric tube in place although he did have a J-tube placed yesterday. Patient was seen by oncology for his non-Hodgkin's lymphoma involving the gastric outlet. Today's x-ray showed evidence of pneumonia/bilateral interstitial infiltrate/edema patient was given a dose of Lasix, I reminded the patient had an aspiration episode which was significant. And he required intubation mechanical ventilation for a few days.WBC count today is 9.1 hemoglobin 7.9 electrolytes are normal renal profile is normal hence I plan to transfer the patient out of the ICU to a cardiac floor. And hopefully discharge planning in the next 2 days for The patient was seen today November 18, 2023 in follow-up in the intensive care unit. He is currently sitting up in bed. Awake and alert in no acute distress. He is maintaining O2 saturations in the 90s on 5 L/min per nasal cannula. Glucose 177. Remains on DuoNeb inhalations and Solu-Medrol. Antibiotics in the form of Zosyn. He has a J-tube in place. He was initiated on vital AF 1.2 at 10 mL an hour with a goal of 82 mL/h The patient is seen today November 19, 2023 in follow-up in the intensive care unit. He is a regular medical floor overflow patient. He is currently sitting up in a chair. Awake and alert in no acute distress. He is maintaining O2 saturations in the 90s on 5 L/min per nasal cannula. No IV fluids. He denies any worsening shortness of breath, cough or congestion. He is having some issues with diarrhea. He remains on Zosyn. He is receiving vital AF at 55 mL/h with a goal of 82 mL/h. Glucose 161. Solu-Medrol, DuoNeb inhalations. The patient is seen today November 20, 2023 in follow-up on the regular medical floor. He is currently up in a chair at the bedside. Awake and alert in no acute distress. Denies any worsening shortness of breath, cough or congestion. He is maintaining O2 saturation in the 90s on 3 L/min per nasal cannula. He continues on Zosyn. Continues on bronchodilators and steroids. White count 12.3. Hemoglobin 9.0. Platelets 258. Glucose 168. He is not tolerating his tube feeds as he has developed diarrhea. C. difficile screen was negative. Abdominal series revealed cardiomegaly with left basilar acute infiltrate and/or atelectasis. Overall nonspecific bowel gas pattern. A small bowel obstruction needs to be considered. Progress note dated November 21, 2023. The patient is seen in room 517. The patient is currently on 3 L of oxygen. He continues on Zosyn. His biggest complaint has been abdominal discomfort and diarrhea. He did have a CT scan of the abdomen and pelvis. Current laboratory data includes a white count of 14.4, hemoglobin 8.8, hematocrit 28.7, and platelet count 229,000. Sodium 139, potassium 4.1, chlorides 103, CO2 30, BUN 42, creatinine 0.94. Glucose is 158. Calcium is 8.5. Progress note dated November 22, 2023. 73-year-old male seen in room 517. He currently is on 2 L of oxygen. Room air saturation was 89%. Chest CT shows bilateral patchy infiltrates. He continues on Zosyn. He is still not taking anything by mouth. No new laboratory data today other than a glucose of 138. Gram stain was negative. Progress note dated November 23, 2023. 73-year-old male seen in room 517. He is resting comfortably without complaints. He continues on saline at 10 cc an hour, tube feedings with Pivot at 20 cc an hour, Zosyn, and 2 L by nasal cannula. He has had an uneventful night. Laboratory data today includes a white count 14.5, hemoglobin 9.7, hematocrit 31.4, and a platelet count of 242,000. Sodium 138, potassium 3.7, chlorides 106, CO2 26, BUN 39, creatinine 0.95. Glucose is 181. Calcium is 8.5. Sputum sampling was negative. Progress note dated November 24, 2023. 73-year-old male who is seen in room 517. The patient has been having significant abdominal discomfort, and went for a evaluation, ordered by surgery today, to determine whether or not the feeding tube, was in proper position, and whether or not there is anything acutely going on in the abdomen. He had been having diarrhea. He is on 3 L of oxygen. He has been here for 12 days. This is a patient, that had a prior EGD, aspirated, because of gastric outlet obstruction, and was diagnosis of non-Hodgkin's lymphoma. He is currently on Zosyn, DuoNebs, and Solu-Medrol. He has been NPO. Chest x-ray showed a left lower lobe infiltrate. Abdominal x-ray showed multiple air-fluid levels. CT of the abdomen showed multiple dilated small bowel loops, consistent with obstruction, pneumoperitoneum, ascites, and cholelithiasis. White count was 14.1, hemoglobin 8.9, hematocrit 29.5, and platelet count was 255,000. Glucose was 143. 11/25/2023, the patient is being seen in the intensive care unit. The patient is critically ill, n.p.o., he has an NG tube in place. Following the NG tube insertion, there was a total of 2.0 L of output and the patient's J-tube was also draining approximately 200 cc over the past 8 hours. Continues to have abdominal pain which is rather diffuse and the patient has direct abdominal tenderness. CAT scan of the abdomen was noted and was consistent with small bowel obstruction. The patient has a stomach that was inflated and in the same time there were multiple loops of small bowel distended with fluid. This extended to the pelvis. J-tube with contrast nondilated small bowel loops within the mid abdomen. Additional loops of small bowel were seen that was dilated. There was some contrast in the right lower quadrant and contrast was a lso in the cecum. No transition point was identified. The dilated loops of the bowel appeared to be in the proximal jejunum and distal to the duodenum. General surgery is on the case the patient will be taken to the operating room for another exploratory laparotomy. Noted the CAT scan of the abdomen also showed pneumoperitoneum and small amount of ascites and cholelithiasis. Hemodynamically, the patient is currently on normal saline at rate of 75 cc an hour. He is hypotensive and is going to be started on pressors. He is on 4 L of oxygen by nasal cannula. He also has sustained acute kidney injury. Blood work from today shows a rise in the creatinine which is currently up to 2.5 with a BUN of 57. Serum bicarb is at 14 with an anion gap of 11. The patient WBC count is at 8.2 with a hemoglobin of 12.3 and a platelet count of 188. Chest x- ray from this morning is showing a right-sided port and a stable left lung airspace disease and an NG tube being in place. The patient remains on IV Zosyn. The patient is receiving Dilaudid for pain control. The patient remains on IV Solu-Medrol 60 mg every 6 hours. It was noted that the patient's surgical wound over the port has dehisced and there is some serous drainage and erythema at the incision site. Awake and alert and communicating. Family at the bedside. No apparent signs of respiratory distress at this point. 11/26/2023, the patient is being seen in follow-up. Events from yesterday was noted and the patient was taken to the operating room for exploratory laparotomy. The patient was found to have large amount of free fluid noted in the abdomen and there was significant contamination. There was perforation of t he small bowel with the balloon of the previously inserted jejunostomy tube penetrating through the perforation. As such, the tube was removed, abdominal washout was done. Small bowel resection was done and the patient had a nodular jejunostomy tube inserted. Postop, the patient was extubated he was unable to tolerate extubation and the patient was kept intubated on mechanical ventilator and he was brought back to the intensive care unit. He is currently postop day #1 following his small bowel resection. Abdominal surgical wound site is dry clean and intact. This morning, the patient remains sedated on propofol which is currently running at 35 mcg/kg/min. He is on assist-control mode of mechanical ventilation at rate of 28, tidal volume of 550, FiO2 of 60% with a PEEP of 5. Blood gas from today shows a pH of 7.35 with a pCO2 44 and pO2 of 88. Chest x-ray shows adequate positioning of the orotracheal tube. The patient has a Mediport on the right and a subclavian triple-lumen catheter on the left and the patient has persistent bilateral pleural effusion and infiltrates in lung base bilaterally. Hemodynamically, the patient remains in shock. He has been on high-dose norepinephrine which is currently running at 0.28 mcg/kg/min and the patient is also on vasopressin at 0.03 units an hour. He is IV fluids are in the form of bicarb infusion running at rate of 150 cc an hour. He is in sinus tachycardia. NG tube output has been 250 cc over the past 8 hours and the output from the J-tube is minimal at this point in time. Urine output is quite diminished as the patient has also sustained acute kidney injury. Overall fluid balance is +4.9 L over the past 24 hours. The patient's white cell count of 5.7 with a hemoglobin 9.9 and platelet count of 172. BUN is 72 with a creatinine of 2.8 and sodium levels at 143. The calcium level is at 6.5. LFTs are normal. Triglyceride level is at 315. On 11/27/2023, the patient remains critically ill. Remains intubated and on mechanical ventilator, still awaiting shock which is essentially septic shock. Remains on propofol which is running at 50 mcg/kg/min. Remains on the mechanical ventilator, assist-control mode with rate of 28, tidal volume of 550 with an FiO2 of 60% with a PEEP of 5. Blood gas shows a pH of 7.29 with a pCO2 of 47 and pO2 of 78. The patient had a follow-up chest x-ray that showed lower lobe consolidation slightly worse on the right and the orotracheal tube is in a good location. Urine output is diminished in the order of 5 to 10 cc an hour and the patient is also developing progressive worsening renal function. Remains on normal citrate of 150 cc an hour and the patient was started on TPN which is running at 30 cc an hour. He has a triple-lumen catheter in his left subclavian. Overall fluid balance over the past 24 hours is +3.9 L. Output from the NG tube and the J-tube is minimal. Hemodynamically, he is hypotensive and norepinephrine running at 0.45 mcg/kg/min. Vasopressin is a physiologic dose. He received amiodarone and he remains on maintenance amiodarone of 0.5 mg/min and the patient continues to be in atrial fibrillation and is having episodes of tachycardia. The white cell count is at 13, hemoglobin 9.4 platelet count is pending. The patient's BUN is 83 with a creatinine of 3.7. Sodium is at 140 with a potassium level of 5.5 dropped down to 4.4 as the sample was hemolyzed. LFTs are normal. Abdominal wound is dry clean and intact. RAYA drainage is essentially serous at this point in time. 11/28/2023, the patient is being seen for a follow-up. The patient remains intubated on mechanical ventilator. This morning, the patient tolerated propofol drip running at 50 mcg/kg/min. The patient is on mechanical ventilator assist-control mode with rate of 28, tidal volume of 550, FiO2 55% with a PEEP of 5. Chest x-ray shows stable findings with lower lobe consolidations bilaterally. Blood gas shows a pH of 7.32 with a pCO2 38 and pO2 90. Neuropathy has improved and the patient is producing approximately 30 cc an hour and the overall input output balance is +3.3 L over the past 24 hours. The patient is still on pressors although his pressor requirements have improved since yesterday. He is on norepinephrine which is running at 0.05 mcg/kg/min and vasopressin physiologic dose. Also, the patient on amiodarone drip regarding his chronic ongoing atrial fibrillation. Amiodarone drip is running at 0.5 mg/min. Nevertheless, the rate is under much better control. Noted the patient was given a dose of digoxin 0.5 mg IV yesterday which helped with rate control. Remains on normal citrate of 150 cc an hour. Remains on TPN at 40 cc an hour. Output from the J-tube is fecal. Output from the NG tube is more gastric. Surgical wound site is dry clean and intact. Sputum Gram stain and culture showing Pseudomonas and Citrobacter. Note that the Citrobacter was intermediate resistance to Zosyn. This will be discussed further with infecti ous disease. Blood cultures are still pending for now. They have negative based on the most recent check. Blood work from today shows WBC count 11.2, hemoglobin 7.9 and platelet count of 46. Sodium is at 140, potassium is at 4.3, chloride is 114 with a bicarb of 18. He has 93 and the creatinine is 4.8. Serum random vancomycin level is at 25.7. 11/29/2023, patient was seen and examined at bedside. The patient remains intubated on mechanical ventilator. Propofol drip is running at 35 mcg/kg/min. ventilator assist-control mode with rate of 28, tidal volume of 550, FiO2 55% with a PEEP of 5. Chest x-ray shows stable findings with lower lobe infiltrates bilaterally. Blood gas shows a pH of 7.34 with a pCO2 38 and pO2 85. Urine output has decreased from yesterday to 10 to 15 cc/h. Creatinine level has increased to 5.38. And overall input and output balance is +2.4 L. Patient is off Levophed and is currently on vasopressin 0.03 units per minute. Patient is in normal sinus rhythm with heart rate of around 60-70. Amiodarone drip is running at 0.5 mg/min. Noted the patient was given a dose of digoxin 0.5 mg IV yesterday which helped with rate control. Remains on normal saline of 150 cc an hour. Remains on TPN at 75 cc an hour. Output from the J-tube is fecal. Output from the NG tube is more gastric. Surgical wound site is dry clean and intact. Sputum Gram stain and culture showing Pseudomonas and Citrobacter. Note that the Citrobacter was intermediate resistance to Zosyn. Blood cultures are still pending for now. They have negative based on the most recent check. Blood work from today shows WBC count 8.1, hemoglobin 7.0 and platelet count of 32. Sodium is at 140, potassium is at 4.4, chloride is 113 with a bicarb of 18. BUN is 104 and the creatinine is 5.38. Serum random vancomycin level is at 21.4. Objective - Vital Signs Vital signs: Vital Signs Temp 97.4 F L 11/29/23 08:00 Pulse 60 09/27/24 11:38 Resp 28 H 11/29/23 11:00 BP 125/71 11/29/23 09:45 Pulse Ox 94 L 11/29/23 11:00 FiO2 55 11/29/23 11:24 Intake & Output 11/28/23 11/29/23 11/29/23 18:59 06:59 18:59 Intake Total 2117.262 1836.821 516.316 Output Total 385 1155 95 Balance 1732.262 681.821 421.316 Weight 110.8 kg 115.6 kg 90.2 kg Intake: IV 495 1445 460 0.9 KVO 120 80 90 Meropenem 1 gm In Sodium 100 Chloride 0.9% 100 ml @ 33 .333 mls/hr IVPB Q12HR [facility] Rx#:[id number] Mvi, Adult No.4 with Vit 440 195 K 10 ml Trace (Conc-1Ml/ Dose) 1 ml Sodium Acetate 40 meq Potassium Acetate 20 meq Calcium Gluconate 1.5 gm Magnesium Sulfate gm 0.5 gm In Amino Acids 5 %/Dextrose 20 % 1,000 ml @ 40 mls/hr IV .Q24H [facility] Rx#:[id number] Piperacillin-Tazobactam 3 100 .375 gm In Sodium Chloride 0.9% 100 ml @ 25 mls/hr IVPB Q8HR [facility] Rx# :[id number] Sodium Chloride 0.9% 1, 375 000 ml @ 150 mls/hr IV . Q6H40M [facility] Rx#:[id number] Sodium Chloride 0.9% 1, 825 75 000 ml @ 75 mls/hr IV . [id number] [facility] Rx#:[id number] Intake, IV Titration 1622.262 391.821 56.316 Amount Amiodarone 450 mg In 211.115 Dextrose 5% in Water 250 ml @ 0.5 MG/MIN 16.667 mls/hr IV .Q15H [facility] Rx#: [id number] Mvi, Adult No.4 with Vit 280 40 K 10 ml Trace (Conc-1Ml/ Dose) 1 ml Sodium Acetate 40 meq Potassium Acetate 20 meq Calcium Gluconate 1.5 gm Magnesium Sulfate gm 0.25 gm In Amino Acids 5 %/Dextrose 20 % 1 ,000 ml @ 40 mls/hr IV . Q24H [facility] Rx#:[id number] Mvi, Adult No.4 with Vit 40 K 10 ml Trace (Conc-1Ml/ Dose) 1 ml Sodium Acetate 40 meq Potassium Acetate 20 meq Calcium Gluconate 1.5 gm Magnesium Sulfate gm 0.5 gm In Amino Acids 5 %/Dextrose 20 % 1,000 ml @ 40 mls/hr IV .Q24H [facility] Rx#:[id number] Norepinephrine 32 mg In 11.177 0.787 Sodium Chloride 0.9% 218 ml @ 0.03 MCG/KG/MIN 1. 097 mls/hr IV .Q24H [facility] Rx#:[id number] Piperacillin-Tazobactam 3 25 .375 gm In Sodium Chloride 0.9% 100 ml @ 25 mls/hr IVPB Q12HR [facility] Rx #:[id number] Piperacillin-Tazobactam 3 25 .375 gm In Sodium Chloride 0.9% 100 ml @ 25 mls/hr IVPB Q8HR [facility] Rx# :[id number] Sodium Chloride 0.9% 1, 525 75 000 ml @ 75 mls/hr IV . [id number] [facility] Rx#:[id number] Sodium Chloride 0.9% 1, 150 000 ml @ 75 mls/hr IV . [id number] [facility] Rx#:[id number] Vasopressin 20 unit In 51 51 Sodium Chloride 0.9% 50 ml @ 0.03 UNITS/MIN 4.59 mls/hr IV .Q11H7M [facility] Rx# :[id number] propofoL 1,000 mg In 303.97 225.034 56.316 Empty Bag 1 bag @ 20 MCG/ KG/MIN 9.36 mls/hr IV . [id number] [facility] Rx#:[id number] Output: Gastric Drainage 350 Drainage 75 420 Left Abdomen 35 90 Right Abdomen 40 330 Urine 310 385 95 Other: Voiding Method Indwelling Catheter Indwelling Catheter Indwelling Catheter ABP, PAP, CO, CI - Last Documented Arterial Blood Pressure 147/71 - Exam No acute distress, sedated on propofol,, comfortable, intubated on the mechanical ventilator. The patient has an orotracheal and orogastric tube in place. HEENT examination is grossly unremarkable. Mucous membranes are moist. No oral lesions. The patient has a triple-lumen catheter in the left subclavian. Neck supple. Full range of motion. No adenopathy thyromegaly or neck vein distention. Cardiac exam revealed the PMI to be normally situated and sized. The rhythm was regular and no extrasystoles were noted during several minutes of auscultation. The first and second heart sounds were normal and physiologic splitting of the second heart sound was noted. There were no murmurs, rubs, clicks, or gallops. The patient is in sinus tachycardia. Lungs reveal mild scattered rhonchi. No wheezes or crackles. Breath sounds equal. Diminished breath sound lung base bilaterally. Abdomen distended without bowel sounds. J-tube is noted. Patient also has an NG tube in place. Mid abdominal wound which is dry clean and intact and the patient has absent bowel sounds. Extremities are intact. No cyanosis clubbing trace edema lower extremities bilaterally Skin is without rash or lesion. The wound at the Mediport site is dry and the area has been sutured Neurologic examination is brief but nonfocal. Currently sedated on propofol. - Labs CBC & Chem 7: 11/29/23 04:02 11/29/23 04:02 Labs: Abnormal Lab Results - Last 24 Hours (Table) 11/28/23 11/28/23 11/28/23 Range/Units 04:49 15:40 17:19 RBC (4.30-5.90) m/uL Hgb (13.0-17.5) gm/dL Hct (39.0-53.0) % MCHC (31.0-37.0) g/dL RDW (11.5-15.5) % Plt Count (150-450) k/uL PT 9.7 L (10.0-12.5) sec Fibrinogen 712 H (200-500) mg/dL Chloride (98-107) mmol/L Carbon Dioxide (22-30) mmol/L BUN (9-20) mg/dL Creatinine (0.66-1.25) mg/dL Glucose (74-99) mg/dL POC Glucose (mg/dL) 354 H (70-110) mg/dL Calcium (8.4-10.2) mg/dL Phosphorus (2.5-4.5) mg/dL Total Protein (6.3-8.2) g/dL Albumin (3.5-5.0) g/dL Triglycerides 380.00 H (0.00-149.00) mg/dL 11/28/23 11/29/23 11/29/23 Range/Units 23:40 04:02 04:02 RBC 2.57 L (4.30-5.90) m/uL Hgb 7.0 L (13.0-17.5) gm/dL Hct 23.3 L (39.0-53.0) % MCHC 30.0 L (31.0-37.0) g/dL RDW 19.6 H (11.5-15.5) % Plt Count 32 L (150-450) k/uL PT (10.0-12.5) sec Fibrinogen (200-500) mg/dL Chloride 113 H (98-107) mmol/L Carbon Dioxide 18 L (22-30) mmol/L BUN 106 H* (9-20) mg/dL Creatinine 5.38 H (0.66-1.25) mg/dL Glucose 263 H (74-99) mg/dL POC Glucose (mg/dL) 314 H (70-110) mg/dL Calcium 6.9 L (8.4-10.2) mg/dL Phosphorus 5.0 H (2.5-4.5) mg/dL Total Protein 4.2 L (6.3-8.2) g/dL Albumin 1.9 L (3.5-5.0) g/dL Triglycerides (0.00-149.00) mg/dL 11/29/23 11/29/23 Range/Units 05:53 11:47 RBC (4.30-5.90) m/uL Hgb (13.0-17.5) gm/dL Hct (39.0-53.0) % MCHC (31.0-37.0) g/dL RDW (11.5-15.5) % Plt Count (150-450) k/uL PT (10.0-12.5) sec Fibrinogen (200-500) mg/dL Chloride (98-107) mmol/L Carbon Dioxide (22-30) mmol/L BUN (9-20) mg/dL Creatinine (0.66-1.25) mg/dL Glucose (74-99) mg/dL POC Glucose (mg/dL) 312 H 308 H (70-110) mg/dL Calcium (8.4-10.2) mg/dL Phosphorus (2.5-4.5) mg/dL Total Protein (6.3-8.2) g/dL Albumin (3.5-5.0) g/dL Triglycerides (0.00-149.00) mg/dL Microbiology - Last 24 Hours (Table) 11/26/23 12:22 Blood Culture - Preliminary Blood 11/26/23 00:30 Gram Stain - Final Sputum Sputum Culture - Final Citrobacter freundii Pseudomonas aeruginosa Assessment and Plan Assessment: Assessment: Acute hypoxic respiratory failure and the patient failed extubation following exploratory laparotomy. He had to be reintubated. The patient has bilateral pleural effusion and infiltrates in lung base bilaterally. Blood gas was noted. The patient chest x-ray from today shows bilateral effusions and right lung consolidation. The sputum culture showing a combination of Citrobacter and Pseudomonas aeruginosa. 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 Patient also has a J-tube in place. Both of the tubes are connected to suction and the patient continues to have abdominal pain with ongoing concern of a small bowel obstruction and the patient scheduled to undergo elective nephrectomy today. Small bowel perforation with abdominal contamination. The patient is status post expiratory laparotomy and small bowel resection and insertion of another jejunostomy tube. The patient is postop day # 4 Peritonitis secondary to above Septic shock secondary to above, the pressor requirements have improved compared to yesterday. Atrial fibrillation with rapid medical response, resolved, patient currently in normal sinus rhythm Acute kidney injury, secondary to above.. Patient received IV Lasix over the past 24 hours and urine output improved briefly but has declined. The patient is showing signs of third spacing and volume overload. Creatinine level continue to rise Acute hypoxic respiratory failure requiring intubation mechanical ventilation secondary to aspiration during EGD on 11/12/2023. Patient was extubated on 11/14/2023. The patient was reintubated on 11/25/2023 following his abdominal surgery. Acute aspiration during upper endoscopy most likely secondary to gastric outlet obstruction secondary to non-Hodgkin's lymphoma. weight loss most likely secondary non-Hodgkin's lymphoma involving the stomach. Plan: Continue ventilator support, no change in the mechanical ventilator for today Keep the patient sedated on propofol and titrated dose for adequate sedation We will try a sedation holiday Keep the patient n.p.o. Keep the NG tube to suction as well as the J-tube, discussed output with a general surgeon TPN was started, currently running at 70 cc/h 75 normal saline to be discontinued IV Zosyn and vancomycin are discontinued. Patient started on meropenem 1 g IVPB every 12 hours Continue on vasopressin, discontinue Levophed. Continue with IV Lasix Patient converted to normal saline, discontinue amiodarone drip Nephrology consultation, patient to undergo hemodialysis session today Monitor renal function Avoid nephrotoxic agents We will continue to follow. Condition is critical. Had a lengthy discussion with the family at the bedside. General surgery is on the case. Oncology on the case. This evaluation was done more than 30 minutes. Time with Patient: Greater than 30
--- NOTE | 2023-11-29 13:18 | P.PN ---
Subjective Progress Note Date: 11/29/23 Abdominal pain. This is a 73-year-old white male with history of chronic abdominal pain for the last 8 months has been treated with Protonix 40 mg daily for the last 3 months with no improvement. Patient had a 22 pound weight loss in the last [address] of the abdomen and pelvis 3 weeks ago showed thickening of the antral wall with pathological adenopathy posterior to the stomach suspicious of neoplasm. Today the patient underwent elective upper endoscopy to evaluate further, patient received IV sedation by anesthesia endoscope was inserted into the mouth, esophagus was intubated without any difficulty there was evidence of large amount of liquid and solid food noted in the stomach suggestive of gastric outlet obstruction. Scope could not be advanced through the pylorus, however in the prepyloric area there was a large superficial ulceration identified with multiple biopsies were done from this area. The body cardia and fundus could not adequately visualize because of large amount of retained food in the stomach. Scope was withdrawn back to the stomach and upon careful examination the mucosa of the antrum body and cardia as well as the fundus appeared normal. Procedure was being performed and biopsies were done patient threw up and subsequently became hypoxic there was clearly evidence of witnessed aspiration anesthesia intubated the patient, procedure was terminated, and the patient was transferred to the ICU, this consult was initiated. Patient is now on assist- control rate of 20 tidal volume 500 FiO2 70% PEEP of 10 ABG is pending, earlier ABG showed profound hypoxia patient is on propofol at 50 mcg/kg/min, next ABG is pending. Chest x-ray showed chronic changes without evidence of acute pulmonary disease. Patient was seen and examined today on 11/13/2023, remains in the ICU, intubated mechanically ventilated, on assist-control rate of 20 tidal volume 500 FiO2 50% and PEEP of 10 ABG showed a pO2 of 143 pCO2 47 pH of 7.28 hence PEEP was cut down to 6, and increased rate to 22. Patient is still requiring IV fluid at 100 cc/h/LR. Requiring norepinephrine at 0.08 mcg/kg/min he is also on propofol at 50 mg/kg/min antibiotics arce patient is receiving Zosyn. Chest x-ray is showing worsening infiltrates specially in the left lung. This could be related to aspiration pneumonia. Patient had witnessed aspiration during endoscopy/upper endoscopy.WBC count is 14 hemoglobin 7.6 basic metabolic profile is normal BUN is 26 creatinine 1.57 obviously the patient sustained some acute kidney injury baseline creatinine 0.86 patient had received fluids over the last 24 hours, remains on fluids at 100 cc/h Patient with seen and examined today on 11/14/2023, patient remains in the ICU, intubated and mechanically ventilated. Failed weaning trial yesterday and he became quite agitated and desaturated once he went off propofol. Had to be placed back on assist-control mode of mechanical ventilation and sedation. Today the patient is on assist-control rate of 22 tidal volume 500 FiO2 50% PEEP of 6. ABG showed a pO2 of 123 pCO2 51 pH of 7.32, and I cut down his FiO2 down to 45%, patient is receiving a unit of packed RBCs for hemoglobin of 6.9 today. Patient had an episode of A-fib RVR at 3 AM in the morning, seen by cardiology, and recommended patient goes on amiodarone. Still requiring norepinephrine at 0.05 mg/kg/min, he is on LR at 100 cc/h propofol at 50 mg/kg/min. Remains empirically on Zosyn for aspiration pneumonia. My plan today is transitioning the patient to Precedex, hopefully discontinue propofol, and at least give the patient a decent weaning trial or at least check weaning parameters before we proceed to weaning trial. Chest x-ray continues to show evidence of pneumonia mostly in the left lung and left lower lobe more specifically. Some pulmonary vascular congestion is noted with interstitial edema, small pleural effusion is also noted/left side. WBC count today is 12 hemoglobin 6.9 basic metabolic profile is normal bicarb is 25, BUN is 25 creatinine is improving down to 1.21 from 1.57 yesterday Patient was evaluated today on 11/15/2023, patient remains in the ICU, he was extubated yesterday, and his extubation was relatively uneventful. However the patient continues to have nasogastric tube in place, his pathology report came back showing non-Hodgkin's lymphoma, patient has gastric outlet obstruction, and the recommendation by GI is to consult surgery for a jejunostomy tube which is appropriate. Patient will be seen today by oncology and he will be seen by general surgery. In the meantime patient is comfortable, he is on 5 L nasal cannula he has LR running at 100 cc/h, he is remains on Zosyn for aspiration pneumonia remains on amiodarone which was started by cardiology for atrial fibrillation with RVR, presently in sinus rhythm. Cannot switch him to oral because of the fact that remains n.p.o., patient remains on TPN. WBC count is 10.7 hemoglobin 7.5 electrolytes are normal renal profile is normal, creatinine normalized to 0.96 Patient was evaluated today on 11/16/2023, remains in the ICU, on 5 L nasal cannula remains on amiodarone at 0.5 mg/min remains on LR at 100 cc/h, however his chest x-ray is showing some component of interstitial edema or could be findings related to his recent episode of aspiration/aspiration pneumonia, nonetheless the patient seems to be a bit symptomatic, he has intermittent cough and wheezing, I am recommending Lasix 40 mg IV push, cut down his IV fluid to 50 cc/h, continue Zosyn, patient will be placed on DuoNeb updrafts and on Solu- Medrol. Patient is scheduled to have jejunostomy-tube placement today. WBC count is 13 hemoglobin 7.7 basic metabolic profile is normal and renal profile is normal Patient was evaluated today on 11/17/2023, patient underwent uneventful placement of a jejunostomy tube yesterday, in the ICU on 5 L, patient is relatively stable, not in any distress, patient continues to have nasogastric tube in place although he did have a J-tube placed yesterday. Patient was seen by oncology for his non-Hodgkin's lymphoma involving the gastric outlet. Today's x-ray showed evidence of pneumonia/bilateral interstitial infiltrate/edema patient was given a dose of Lasix, I reminded the patient had an aspiration episode which was significant. And he required intubation mechanical ventilation for a few days.WBC count today is 9.1 hemoglobin 7.9 electrolytes are normal renal profile is normal hence I plan to transfer the patient out of the ICU to a cardiac floor. And hopefully discharge planning in the next 2 days for The patient was seen today November 18, 2023 in follow-up in the intensive care unit. He is currently sitting up in bed. Awake and alert in no acute distress. He is maintaining O2 saturations in the 90s on 5 L/min per nasal cannula. Glucose 177. Remains on DuoNeb inhalations and Solu-Medrol. Antibiotics in the form of Zosyn. He has a J-tube in place. He was initiated on vital AF 1.2 at 10 mL an hour with a goal of 82 mL/h The patient is seen today November 19, 2023 in follow-up in the intensive care unit. He is a regular medical floor overflow patient. He is currently sitting up in a chair. Awake and alert in no acute distress. He is maintaining O2 saturations in the 90s on 5 L/min per nasal cannula. No IV fluids. He denies any worsening shortness of breath, cough or congestion. He is having some issues with diarrhea. He remains on Zosyn. He is receiving vital AF at 55 mL/h with a goal of 82 mL/h. Glucose 161. Solu-Medrol, DuoNeb inhalations. The patient is seen today November 20, 2023 in follow-up on the regular medical floor. He is currently up in a chair at the bedside. Awake and alert in no acute distress. Denies any worsening shortness of breath, cough or congestion. He is maintaining O2 saturation in the 90s on 3 L/min per nasal cannula. He continues on Zosyn. Continues on bronchodilators and steroids. White count 12.3. Hemoglobin 9.0. Platelets 258. Glucose 168. He is not tolerating his tube feeds as he has developed diarrhea. C. difficile screen was negative. Abdominal series revealed cardiomegaly with left basilar acute infiltrate and/or atelectasis. Overall nonspecific bowel gas pattern. A small bowel obstruction needs to be considered. Progress note dated November 21, 2023. The patient is seen in room 517. The patient is currently on 3 L of oxygen. He continues on Zosyn. His biggest complaint has been abdominal discomfort and diarrhea. He did have a CT scan of the abdomen and pelvis. Current laboratory data includes a white count of 14.4, hemoglobin 8.8, hematocrit 28.7, and platelet count 229,000. Sodium 139, potassium 4.1, chlorides 103, CO2 30, BUN 42, creatinine 0.94. Glucose is 158. Calcium is 8.5. Progress note dated November 22, 2023. 73-year-old male seen in room 517. He currently is on 2 L of oxygen. Room air saturation was 89%. Chest CT shows bilateral patchy infiltrates. He continues on Zosyn. He is still not taking anything by mouth. No new laboratory data today other than a glucose of 138. Gram stain was negative. Progress note dated November 23, 2023. 73-year-old male seen in room 517. He is resting comfortably without complaints. He continues on saline at 10 cc an hour, tube feedings with Pivot at 20 cc an hour, Zosyn, and 2 L by nasal cannula. He has had an uneventful night. Laboratory data today includes a white count 14.5, hemoglobin 9.7, hematocrit 31.4, and a platelet count of 242,000. Sodium 138, potassium 3.7, chlorides 106, CO2 26, BUN 39, creatinine 0.95. Glucose is 181. Calcium is 8.5. Sputum sampling was negative. Progress note dated November 24, 2023. 73-year-old male who is seen in room 517. The patient has been having significant abdominal discomfort, and went for a evaluation, ordered by surgery today, to determine whether or not the feeding tube, was in proper position, and whether or not there is anything acutely going on in the abdomen. He had been having diarrhea. He is on 3 L of oxygen. He has been here for 12 days. This is a patient, that had a prior EGD, aspirated, because of gastric outlet obstruction, and was diagnosis of non-Hodgkin's lymphoma. He is currently on Zosyn, DuoNebs, and Solu-Medrol. He has been NPO. Chest x-ray showed a left lower lobe infiltrate. Abdominal x-ray showed multiple air-fluid levels. CT of the abdomen showed multiple dilated small bowel loops, consistent with obstruction, pneumoperitoneum, ascites, and cholelithiasis. White count was 14.1, hemoglobin 8.9, hematocrit 29.5, and platelet count was 255,000. Glucose was 143. 11/25/2023, the patient is being seen in the intensive care unit. The patient is critically ill, n.p.o., he has an NG tube in place. Following the NG tube insertion, there was a total of 2.0 L of output and the patient's J-tube was also draining approximately 200 cc over the past 8 hours. Continues to have abdominal pain which is rather diffuse and the patient has direct abdominal tenderness. CAT scan of the abdomen was noted and was consistent with small bowel obstruction. The patient has a stomach that was inflated and in the same time there were multiple loops of small bowel distended with fluid. This extended to the pelvis. J-tube with contrast nondilated small bowel loops within the mid abdomen. Additional loops of small bowel were seen that was dilated. There was some contrast in the right lower quadrant and contrast was also in the cecum. No transition point was identified. The dilated loops of the bowel appeared to be in the proximal jejunum and distal to the duodenum. General surgery is on the case the patient will be taken to the operating room for another exploratory laparotomy. Noted the CAT scan of the abdomen also showed pneumoperitoneum and small amount of ascites and cholelithiasis. Hemodynamically, the patient is currently on normal saline at rate of 75 cc an hour. He is hypotensive and is going to be started on pressors. He is on 4 L of oxygen by nasal cannula. He also has sustained acute kidney injury. Blood work from today shows a rise in the creatinine which is currently up to 2.5 with a BUN of 57. Serum bicarb is at 14 with an anion gap of 11. The patient WBC count is at 8.2 with a hemoglobin of 12.3 and a platelet count of 188. Chest x- ray from this morning is showing a right-sided port and a stable left lung airspace disease and an NG tube being in place. The patient remains on IV Zosyn. The patient is receiving Dilaudid for pain control. The patient remains on IV Solu-Medrol 60 mg every 6 hours. It was noted that the patient's surgical wound over the port has dehisced and there is some serous drainage and erythema at the incision site. Awake and alert and communicating. Family at the bedside. No apparent signs of respiratory distress at this point. 11/26/2023, the patient is being seen in follow-up. Events from yesterday was noted and the patient was taken to the operating room for exploratory laparotomy. The patient was found to have large amount of free fluid noted in the abdomen and there was significant contamination. There was perforation of the small bowel with the balloon of the previously inserted jejunostomy tube penetrating through the perforation. As such, the tube was removed, abdominal washout was done. Small bowel resection was done and the patient had a nodular jejunostomy tube inserted. Postop, the patient was extubated he was unable to tolerate extubation and the patient was kept intubated on mechanical ventilator and he was brought back to the intensive care unit. He is currently postop day #1 following his small bowel resection. Abdominal surgical wound site is dry clean and intact. This morning, the patient remains sedated on propofol which is currently running at 35 mcg/kg/min. He is on assist-control mode of mechanical ventilation at rate of 28, tidal volume of 550, FiO2 of 60% with a PEEP of 5. Blood gas from today shows a pH of 7.35 with a pCO2 44 and pO2 of 88. Chest x-ray shows adequate positioning of the orotracheal tube. The patient has a Mediport on the right and a subclavian triple-lumen catheter on the left and the patient has persistent bilateral pleural effusion and infiltrates in lung base bilaterally. Hemodynamically, the patient remains in shock. He has been on high-dose norepinephrine which is currently running at 0.28 mcg/kg/min and the patient is also on vasopressin at 0.03 units an hour. He is IV fluids are in the form of bicarb infusion running at rate of 150 cc an hour. He is in sinus tachycardia. NG tube output has been 250 cc over the past 8 hours and the output from the J-tube is minimal at this point in time. Urine output is quite diminished as the patient has also sustained acute kidney injury. Overall fluid balance is +4.9 L over the past 24 hours. The patient's white cell count of 5.7 with a hemoglobin 9.9 and platelet count of 172. BUN is 72 with a creatinine of 2.8 and sodium levels at 143. The calcium level is at 6.5. LFTs are normal. Triglyceride level is at 315. On 11/27/2023, the patient remains critically ill. Remains intubated and on mechanical ventilator, still awaiting shock which is essentially septic shock. Remains on propofol which is running at 50 mcg/kg/min. Remains on the mechanical ventilator, assist-control mode with rate of 28, tidal volume of 550 with an FiO2 of 60% with a PEEP of 5. Blood gas shows a pH of 7.29 with a pCO2 of 47 and pO2 of 78. The patient had a follow-up chest x-ray that showed lower lobe consolidation slightly worse on the right and the orotracheal tube is in a good location. Urine output is diminished in the order of 5 to 10 cc an hour and the patient is also developing progressive worsening renal function. Remains on normal citrate of 150 cc an hour and the patient was started on TPN which is running at 30 cc an hour. He has a triple-lumen catheter in his left subclavian. Overall fluid balance over the past 24 hours is +3.9 L. Output from the NG tube and the J-tube is minimal. Hemodynamically, he is hypotensive and norepinephrine running at 0.45 mcg/kg/min. Vasopressin is a physiologic dose. He received amiodarone and he remains on maintenance amiodarone of 0.5 mg /min and the patient continues to be in atrial fibrillation and is having episodes of tachycardia. The white cell count is at 13, hemoglobin 9.4 platelet count is pending. The patient's BUN is 83 with a creatinine of 3.7. Sodium is at 140 with a potassium level of 5.5 dropped down to 4.4 as the sample was hemolyzed. LFTs are normal. Abdominal wound is dry clean and intact. RAYA drainage is essentially serous at this point in time. 11/28/2023, the patient is being seen for a follow-up. The patient remains intubated on mechanical ventilator. This morning, the patient tolerated propofol drip running at 50 mcg/kg/min. The patient is on mechanical ventilator assist-control mode with rate of 28, tidal volume of 550, FiO2 55% with a PEEP of 5. Chest x-ray shows stable findings with lower lobe consolidations bilaterally. Blood gas shows a pH of 7.32 with a pCO2 38 and pO2 90. Neuropath y has improved and the patient is producing approximately 30 cc an hour and the overall input output balance is +3.3 L over the past 24 hours. The patient is still on pressors although his pressor requirements have improved since yesterday. He is on norepinephrine which is running at 0.05 mcg/kg/min and vasopressin physiologic dose. Also, the patient on amiodarone drip regarding his chronic ongoing atrial fibrillation. Amiodarone drip is running at 0.5 mg/min. Nevertheless, the rate is under much better control. Noted the patient was given a dose of digoxin 0.5 mg IV yesterday which helped with rate control. Remains on normal citrate of 150 cc an hour. Remains on TPN at 40 cc an hour. Output from the J-tube is fecal. Output from the NG tube is more gastric. Surgical wound site is dry clean and intact. Sputum Gram stain and culture showing Pseudomonas and Citrobacter. Note that the Citrobacter was intermediate resistance to Zosyn. This will be discussed further with infectious disease. Blood cultures are still pending for now. They have negative based on the most recent check. Blood work from today shows WBC count 11.2, hemoglobin 7.9 and platelet count of 46. Sodium is at 140, potassium is at 4.3, chloride is 114 with a bicarb of 18. He has 93 and the creatinine is 4.8. Serum random vancomycin level is at 25.7. On 11/29/2023, the patient is being seen for a follow-up. Remains intubated on the mechanical ventilator. The patient sedated on propofol which is running at 35 mcg/kg/min. Synchronous with mechanical ventilator. On today's evaluation, he is on assist-control mode with rate of 28, tidal volume of 550, FiO2 55% with a PEEP of 5. Chest x-ray shows lower lobe consolidation bilaterally worse on the right and the orotracheal tube is in good location. The blood gas showed a pH of 7.34 with a pCO2 of 35 and a pO2 of 84. No significant orotracheal secretions. Hemodynamically improved compared to yesterday. In fact, the patient is on minimal norepinephrine that was discontinued earlier this morning. The patient has converted to normal sinus rhythm. Remains on amiodarone at 0.5 mg/min. Overall fluid balance over the past 24 hours is 2.4 L positive. Urine output has been adequate and the patient is currently on IV Lasix. Neverthel ess, the patient has developed progressive worsening renal function. Creatinine is up to 5.3 on today's evaluation with a potassium level of 4.4. Serum bicarb is at 18 with an anion gap of 9. WBC count is at 8.1 with a hemoglobin of 7 and a platelet count of 32 which has dropped compared to earlier evaluation. The rest of the coagulation profile was normal from 11/28/2023. Fibrinogen level is slightly elevated. Sputum samples have shown a combination of Citrobacter and Pseudomonas aeruginosa. Based on cultures and sensitivities, the patient will be taken off his IV Zosyn and he will be switched to IV meropenem. Output from the J-tube is fecal. Output from the NG tube is gastric and surgical wound site is dry clean and intact. He is afebrile for now. Hemodynamically, the patient is doing better. He remains on TPN for nutritional support. IV fluids are also running at a rate of 75 cc an hour. Remains on vancomycin. Objective - Vital Signs Vital signs: Vital Signs Temp 98.2 F 11/29/23 04:00 Pulse 60 11/29/23 07:59 Resp 28 H 11/29/23 07:30 BP 125/71 11/28/23 16:00 Pulse Ox 97 11/29/23 07:30 FiO2 55 11/29/23 07:45 Intake & Output 11/28/23 11/29/23 11/29/23 18:59 06:59 18:59 Intake Total 2117.262 1836.821 125 Output Total 385 1155 20 Balance 1732.262 681.821 105 Weight 110.8 kg 115.6 kg Intake: IV 495 1445 125 0.9 KVO 120 80 10 Mvi, Adult No.4 with Vit 440 40 K 10 ml Trace (Conc-1Ml/ Dose) 1 ml Sodium Acetate 40 meq Potassium Acetate 20 meq Calcium Gluconate 1.5 gm Magnesium Sulfate gm 0.5 gm In Amino Acids 5 %/Dextrose 20 % 1,000 ml @ 40 mls/hr IV .Q24H [facility] Rx#:[id number] Piperacillin-Tazobactam 3 100 .375 gm In Sodium Chloride 0.9% 100 ml @ 25 mls/hr IVPB Q8HR [facility] Rx# :[id number] Sodium Chloride 0.9% 1, 375 000 ml @ 150 mls/hr IV . [id number] [facility] Rx#:[id number] Sodium Chloride 0.9% 1, 825 75 000 ml @ 75 mls/hr IV . [id number] [facility] Rx#:[id number] Intake, IV Titration 1622.262 391.821 Amount Amiodarone 450 mg In 211.115 Dextrose 5% in Water 250 ml @ 0.5 MG/MIN 16.667 mls/hr IV .Q15H [facility] Rx#: [id number] Mvi, Adult No.4 with Vit 280 40 K 10 ml Trace (Conc-1Ml/ Dose) 1 ml Sodium Acetate 40 meq Potassium Acetate 20 meq Calcium Gluconate 1.5 gm Magnesium Sulfate gm 0.25 gm In Amino Acids 5 %/Dextrose 20 % 1 ,000 ml @ 40 mls/hr IV . Q24H [facility] Rx#:[id number] Mvi, Adult No.4 with Vit 40 K 10 ml Trace (Conc-1Ml/ Dose) 1 ml Sodium Acetate 40 meq Potassium Acetate 20 meq Calcium Gluconate 1.5 gm Magnesium Sulfate gm 0.5 gm In Amino Acids 5 %/Dextrose 20 % 1,000 ml @ 40 mls/hr IV .Q24H [facility] Rx#:[id number] Norepinephrine 32 mg In 11.177 0.787 Sodium Chloride 0.9% 218 ml @ 0.03 MCG/KG/MIN 1. 097 mls/hr IV .Q24H [facility] Rx#:[id number] Piperacillin-Tazobactam 3 25 .375 gm In Sodium Chloride 0.9% 100 ml @ 25 mls/hr IVPB Q12HR [facility] Rx #:[id number] Piperacillin-Tazobactam 3 25 .375 gm In Sodium Chloride 0.9% 100 ml @ 25 mls/hr IVPB Q8HR [facility] Rx# :[id number] Sodium Chloride 0.9% 1, 525 75 000 ml @ 75 mls/hr IV . [id number] [facility] Rx#:[id number] Sodium Chloride 0.9% 1, 150 000 ml @ 75 mls/hr IV . [id number] [facility] Rx#:[id number] Vasopressin 20 unit In 51 51 Sodium Chloride 0.9% 50 ml @ 0.03 UNITS/MIN 4.59 mls/hr IV .Q11H7M [facility] Rx# :[id number] propofoL 1,000 mg In 303.97 225.034 Empty Bag 1 bag @ 20 MCG/ KG/MIN 9.36 mls/hr IV . [id number] [facility] Rx#:[id number] Output: Gastric Drainage 350 Drainage 75 420 Left Abdomen 35 90 Right Abdomen 40 330 Urine 310 385 20 Other: Voiding Method Indwelling Catheter Indwelling Catheter ABP, PAP, CO, CI - Last Documented Arterial Blood Pressure 114/57 - Exam No acute distress, sedated on propofol, comfortable, intubated on the mechanical ventilator. The patient has an orotracheal and orogastric tube in place. HEENT examination is grossly unremarkable. Mucous membranes are moist. No oral lesions. The patient has a triple-lumen catheter in the left subclavian. Neck supple. Full range of motion. No adenopathy thyromegaly or neck vein distention. Cardiac exam revealed the PMI to be normally situated and sized. The rhythm was regular and no extrasystoles were noted during several minutes of auscultation. The first and second heart sounds were normal and physiologic splitting of the second heart sound was noted. There were no murmurs, rubs, clicks, or gallops. The patient is in sinus tachycardia. Lungs reveal mild scattered rhonchi. No wheezes or crackles. Breath sounds equal. Diminished breath sound lung base bilaterally. Abdomen distended without bowel sounds. J-tube is noted. Patient also has an NG tube in place. Mid abdominal wound which is dry clean and intact and the patient has absent bowel sounds. Extremities are intact. No cyanosis clubbing trace edema lower extremities bilaterally Skin is without rash or lesion. The wound at the Mediport site is dry and the area has been sutured Neurologic examination is brief but nonfocal. Currently sedated on propofol. - Labs CBC & Chem 7: 11/29/23 04:02 11/29/23 04:02 Labs: Abnormal Lab Results - Last 24 Hours (Table) 11/28/23 11/28/23 11/28/23 Range/Units 04:49 11:31 15:40 RBC (4.30-5.90) m/uL Hgb (13.0-17.5) gm/dL Hct (39.0-53.0) % MCHC (31.0-37.0) g/dL RDW (11.5-15.5) % Plt Count (150-450) k/uL PT 9.7 L (10.0-12.5) sec Fibrinogen 712 H (200-500) mg/dL Chloride (98-107) mmol/L Carbon Dioxide (22-30) mmol/L BUN (9-20) mg/dL Creatinine (0.66-1.25) mg/dL Glucose (74-99) mg/dL POC Glucose (mg/dL) 307 H (70-110) mg/dL Calcium (8.4-10.2) mg/dL Phosphorus (2.5-4.5) mg/dL Total Protein (6.3-8.2) g/dL Albumin (3.5-5.0) g/dL Triglycerides 380.00 H (0.00-149.00) mg/dL 11/28/23 11/28/2311/28/24 Range/Units 17:19 23:40 04:02 RBC 2.57 L (4.30-5.90) m/uL Hgb 7.0 L (13.0-17.5) gm/dL Hct 23.3 L (39.0-53.0) % MCHC 30.0 L (31.0-37.0) g/dL RDW 19.6 H (11.5-15.5) % Plt Count 32 L (150-450) k/uL PT (10.0-12.5) sec Fibrinogen (200-500) mg/dL Chloride (98-107) mmol/L Carbon Dioxide (22-30) mmol/L BUN (9-20) mg/dL Creatinine (0.66-1.25) mg/dL Glucose (74-99) mg/dL POC Glucose (mg/dL) 354 H 314 H (70-110) mg/dL Calcium (8.4-10.2) mg/dL Phosphorus (2.5-4.5) mg/dL Total Protein (6.3-8.2) g/dL Albumin (3.5-5.0) g/dL Triglycerides (0.00-149.00) mg/dL 11/29/23 11/29/23 Range/Units 04:02 05:53 RBC (4.30-5.90) m/uL Hgb (13.0-17.5) gm/dL Hct (39.0-53.0) % MCHC (31.0-37.0) g/dL RDW (11.5-15.5) % Plt Count (150-450) k/uL PT (10.0-12.5) sec Fibrinogen (200-500) mg/dL Chloride 113 H (98-107) mmol/L Carbon Dioxide 18 L (22-30) mmol/L BUN 106 H* (9-20) mg/dL Creatinine 5.38 H (0.66-1.25) mg/dL Glucose 263 H (74-99) mg/dL POC Glucose (mg/dL) 312 H (70-110) mg/dL Calcium 6.9 L (8.4-10.2) mg/dL Phosphorus 5.0 H (2.5-4.5) mg/dL Total Protein 4.2 L (6.3-8.2) g/dL Albumin 1.9 L (3.5-5.0) g/dL Triglycerides (0.00-149.00) mg/dL Microbiology - Last 24 Hours (Table) 11/26/23 12:22 Blood Culture - Preliminary Blood 11/26/23 00:30 Gram Stain - Final Sputum Sputum Culture - Final Citrobacter freundii Pseudomonas aeruginosa Assessment and Plan Plan: Acute hypoxic respiratory failure and the patient failed extubation following exploratory laparotomy. The patient chest x-ray from today shows lower lobe consolidation slightly worse on the right. The sputum culture showing a combination of Citrobacter and Pseudomonas aeruginosa. Consider hospital- acquired pneumonia, and the patient remains on IV Zosyn and vancomycin combination. No interval worsening in oxygenation. Chest x-ray was noted. Blood gas was noted. 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 Patient also has a J-tube in place. Both of the tubes are connected to suction and the patient continues to have abdominal pain with ongoing concern of a small bowel obstruction and the patient scheduled to undergo elective nephrectomy today. Small bowel perforation with abdominal contamination. The patient is status post expiratory laparotomy and small bowel resection and insertion of another jejunostomy tube. The patient is postop day # 4 Peritonitis secondary to above Septic shock secondary to above, the patient is currently off pressors Atrial fibrillation with rapid medical response, currently on amiodarone drip at 0.5 mg/min. The patient is converted into normal sinus rhythm. Acute kidney injury, secondary to above.. Patient received IV Lasix over the past 24 hours and urine output improved. The patient is showing signs of third spacing and volume overload. Creatinine is on the rise Acute hypoxic respiratory failure requiring intubation mechanical ventilation secondary to aspiration during EGD on 11/12/2023. Patient was extubated on 11/14/2023. The patient was reintubated on 11/25/2023 following his abdominal surgery. Acute aspiration during upper endoscopy most likely secondary to gastric outlet obstruction secondary to non-Hodgkin's lymphoma. weight loss most likely secondary non-Hodgkin's lymphoma involving the stomach. Thrombocytopenia, likely consumptive. Drug-induced thrombocytopenia cannot be completely ruled out. No evidence of any acute bleeding at this point. Hemoglobin is stable. Anemia of chronic disease, multifactorial. Plan: Continue ventilator support, no change in the mechanical ventilator for today Keep the patient sedated on propofol and titrated dose for adequate sedation Keep the patient n.p.o. Keep the NG tube to suction as well as the J-tube, discussed output with a general surgeon TPN for nutritional support Change IV fluids to KVO Discontinue IV Zosyn and vancomycin Put the patient on IV meropenem Monitor platelet count Continue Lasix 80 mg IV every 12 hours Nephrology on the case and the patient may potentially need dialysis at a later stage Give the patient sedation holiday thrombocytopenia, likely consumptive. Drug- induced thrombocytopenia cannot be ruled out. Avoid nephrotoxic agents We will continue to follow. Condition is critical. Had a lengthy discussion w ith the family at the bedside. General surgery is on the case. Oncology on the case. This evaluation was done more than 30 minutes. Time with Patient: Greater than 30
[2023-11-29] MEDS: HEPARIN SODIUM 1,000 UN/ML (10ML VL) MISCELLANE ONE (13:23)
--- NOTE | 2023-11-29 14:23 | P.PN ---
Subjective Patient seen and evaluated at bedside. No acute changes overnight. Objective - Vital Signs Vital signs: Vital Signs Temp 97.6 F 11/29/23 12:00 Pulse 61 11/29/23 12:00 Resp 28 H 11/29/23 12:00 BP 125/71 11/29/23 09:45 Pulse Ox 96 11/29/23 12:00 FiO2 55 11/29/23 12:00 Intake & Output 11/28/23 11/29/23 11/29/23 18:59 06:59 18:59 Intake Total 2117.262 1836.821 586.118 Output Total 385 1155 130 Balance 1732.262 681.821 456.118 Weight 110.8 kg 115.6 kg 90.2 kg Intake: IV 495 1445 480 0.9 KVO 120 80 110 Meropenem 1 gm In Sodium 100 Chloride 0.9% 100 ml @ 33 .333 mls/hr IVPB Q12HR [facility] Rx#:[id number] Mvi, Adult No.4 with Vit 440 195 K 10 ml Trace (Conc-1Ml/ Dose) 1 ml Sodium Acetate 40 meq Potassium Acetate 20 meq Calcium Gluconate 1.5 gm Magnesium Sulfate gm 0.5 gm In Amino Acids 5 %/Dextrose 20 % 1,000 ml @ 40 mls/hr IV .Q24H [facility] Rx#:[id number] Piperacillin-Tazobactam 3 100 .375 gm In Sodium Chloride 0.9% 100 ml @ 25 mls/hr IVPB Q8HR [facility] Rx# :[id number] Sodium Chloride 0.9% 1, 375 000 ml @ 150 mls/hr IV . Q6H40M [facility] Rx#:[id number] Sodium Chloride 0.9% 1, 825 75 000 ml @ 75 mls/hr IV . [id number] [facility] Rx#:[id number] Intake, IV Titration 1622.262 391.821 106.118 Amount Amiodarone 450 mg In 211.115 Dextrose 5% in Water 250 ml @ 0.5 MG/MIN 16.667 mls/hr IV .Q15H [facility] Rx#: [id number] Mvi, Adult No.4 with Vit 280 40 K 10 ml Trace (Conc-1Ml/ Dose) 1 ml Sodium Acetate 40 meq Potassium Acetate 20 meq Calcium Gluconate 1.5 gm Magnesium Sulfate gm 0.25 gm In Amino Acids 5 %/Dextrose 20 % 1 ,000 ml @ 40 mls/hr IV . Q24H [facility] Rx#:[id number] Mvi, Adult No.4 with Vit 40 K 10 ml Trace (Conc-1Ml/ Dose) 1 ml Sodium Acetate 40 meq Potassium Acetate 20 meq Calcium Gluconate 1.5 gm Magnesium Sulfate gm 0.5 gm In Amino Acids 5 %/Dextrose 20 % 1,000 ml @ 40 mls/hr IV .Q24H [facility] Rx#:[id number] Norepinephrine 32 mg In 11.177 0.787 Sodium Chloride 0.9% 218 ml @ 0.03 MCG/KG/MIN 1. 097 mls/hr IV .Q24H [facility] Rx#:[id number] Piperacillin-Tazobactam 3 25 .375 gm In Sodium Chloride 0.9% 100 ml @ 25 mls/hr IVPB Q12HR [facility] Rx #:[id number] Piperacillin-Tazobactam 3 25 .375 gm In Sodium Chloride 0.9% 100 ml @ 25 mls/hr IVPB Q8HR [facility] Rx# :[id number] Sodium Chloride 0.9% 1, 525 75 000 ml @ 75 mls/hr IV . [id number] [facility] Rx#:[id number] Sodium Chloride 0.9% 1, 150 000 ml @ 75 mls/hr IV . [id number] [facility] Rx#:[id number] Vasopressin 20 unit In 51 51 49.802 Sodium Chloride 0.9% 50 ml @ 0.03 UNITS/MIN 4.59 mls/hr IV .Q11H7M [facility] Rx# :[id number] propofoL 1,000 mg In 303.97 225.034 56.316 Empty Bag 1 bag @ 20 MCG/ KG/MIN 9.36 mls/hr IV . [id number] [facility] Rx#:[id number] Output: Gastric Drainage 350 Drainage 75 420 Left Abdomen 35 90 Right Abdomen 40 330 Urine 310 385 130 Other: Voiding Method Indwelling Catheter Indwelling Catheter Indwelling Catheter ABP, PAP, CO, CI - Last Documented Arterial Blood Pressure 131/64 - Exam gen: nad cv: rrr pul: non labored breathing abd: soft, not distended, not peritoneal, no guarding or rebound tenderness, surgical incisions c/d/i, j tube stool output - Labs CBC & Chem 7: 11/29/23 04:02 11/29/23 04:02 Labs: Abnormal Lab Results - Last 24 Hours (Table) 11/28/23 11/28/23 11/28/23 Range/Units 04:49 15:40 17:19 RBC (4.30-5.90) m/uL Hgb (13.0-17.5) gm/dL Hct (39.0-53.0) % MCHC (31.0-37.0) g/dL RDW (11.5-15.5) % Plt Count (150-450) k/uL PT 9.7 L (10.0-12.5) sec Fibrinogen 712 H (200-500) mg/dL Chloride (98-107) mmol/L Carbon Dioxide (22-30) mmol/L BUN (9-20) mg/dL Creatinine (0.66-1.25) mg/dL Glucose (74-99) mg/dL POC Glucose (mg/dL) 354 H (70-110) mg/dL Calcium (8.4-10.2) mg/dL Phosphorus (2.5-4.5) mg/dL Total Protein (6.3-8.2) g/dL Albumin (3.5-5.0) g/dL Triglycerides 380.00 H (0.00-149.00) mg/dL 11/28/23 11/29/23 11/29/23 Range/Units 23:40 04:02 04:02 RBC 2.57 L (4.30-5.90) m/uL Hgb 7.0 L (13.0-17.5) gm/dL Hct 23.3 L (39.0-53.0) % MCHC 30.0 L (31.0-37.0) g/dL RDW 19.6 H (11.5-15.5) % Plt Count 32 L (150-450) k/uL PT (10.0-12.5) sec Fibrinogen (200-500) mg/dL Chloride 113 H (98-107) mmol/L Carbon Dioxide 18 L (22-30) mmol/L BUN 106 H* (9-20) mg/dL Creatinine 5.38 H (0.66-1.25) mg/dL Glucose 263 H (74-99) mg/dL POC Glucose (mg/dL) 314 H (70-110) mg/dL Calcium 6.9 L (8.4-10.2) mg/dL Phosphorus 5.0 H (2.5-4.5) mg/dL Total Protein 4.2 L (6.3-8.2) g/dL Albumin 1.9 L (3.5-5.0) g/dL Triglycerides (0.00-149.00) mg/dL 11/29/23 11/29/23 Range/Units 05:53 11:47 RBC (4.30-5.90) m/uL Hgb (13.0-17.5) gm/dL Hct (39.0-53.0) % MCHC (31.0-37.0) g/dL RDW (11.5-15.5) % Plt Count (150-450) k/uL PT (10.0-12.5) sec Fibrinogen (200-500) mg/dL Chloride (98-107) mmol/L Carbon Dioxide (22-30) mmol/L BUN (9-20) mg/dL Creatinine (0.66-1.25) mg/dL Glucose (74-99) mg/dL POC Glucose (mg/dL) 312 H 308 H (70-110) mg/dL Calcium (8.4-10.2) mg/dL Phosphorus (2.5-4.5) mg/dL Total Protein (6.3-8.2) g/dL Albumin (3.5-5.0) g/dL Triglycerides (0.00-149.00) mg/dL Microbiology - Last 24 Hours (Table) 11/26/23 12:22 Blood Culture - Preliminary Blood 11/26/23 00:30 Gram Stain - Final Sputum Sputum Culture - Final Citrobacter freundii Pseudomonas aeruginosa Assessment and Plan Assessment: 73-year-old male with 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 Status post J-tube placement and required revision. Continues to require pressor therapy secondary to shock. Sputum growing gram- negative bacilli per microbiology. Awaiting blood cultures. Continue IV antibiotics. Continue ICU care. Time with Patient: Less than 30
--- NOTE | 2023-11-29 16:10 | P.PN ---
Progress Note - Text Progress Note Date: 11/29/23 Chief Complaint: Aspirated This is a 73-year-old patient, follows with Dr. Patricia Deal. Patient was seen this morning in the ICU. Patient's and daughter at the bedside. History obtained predominantly by the . Patient been having trouble with his stomach symptoms for close to 8 months. Patient underwent EGD by Dr. Sahara Cheng yesterday. Patient was found to have ulcerated around the antrum and obstruction to the pylorus. A lot of retained food was found. Patient aspirated. Had to be intubated and brought to the ICU. On a Levophed drip. FiO2 50 and a PEEP of 6. Patient had been losing weight lost about 25 pounds. Previously has a history of mitral valve prolapse. November 13: ICU. Patient remains on Precedex drip and propofol drip. Did not do well attempted extubation yesterday. Patient been off Levophed. NG tube to suction. Spoke to patient's and son at the bedside. Biopsy results awaited. Hemoglobin dropped to 6.9 this morning. Get a unit of blood. November 14: ICU. Up in a chair. Extubated yesterday. NG tube to suction. at the bedside. 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 Oncology was consulted. They have ordered a port. Results discussed with Dr. Sahara Cheng. General surgery was consulted for J-tube placement. Discussed with at the bedside. Patient getting IV fluids, IV Zosyn,. Patient has been on IV amiodarone for A-fib-back in sinus rhythm. Multiple PACs. Did receive unit of blood yesterday. Also IV ferric gluconate. November 15: ICU. Patient earlier today underwent jejunostomy tube placement and a port placement. Patient awake. Answering questions. NG tube to suction present. Updated patient's . Patient remains on IV amiodarone and IV Zosyn. November 16: ICU. Up in the chair. NG tube present but not to suction. Trickle feeding through the jejunostomy tube should be started today. Dietitian has been on board. IV Zosyn to continue. Patient's and his sister at the bedside. Discussed. Also spoke with Dr. Serna. Given patient has no other predisposing cardiac factors for the A-fib except acute illness. His LV function is normal. Left atrium is normal. He has already been loaded with IV amiodarone. Will switch him to oral Lopressor 12.5 twice daily. Hence will DC amiodarone. Patient yesterday had wheezing was put on bronchodilators steroids per pulmonary. November 17: Propped up in bed. NG tube was discontinued. Sinus rhythm. Remains NPO. Getting G-tube feeding at 40 cc an hour. Dietitian following. Get arrangements done for DC home tomorrow including tube feeding. Increase activity discussed with patient and elder daughter at the bedside. Still requiring oxygen. Incentive spirometry. November 18: Patient up in recliner. Earlier today spoke to social sciences chair David. Informed patient is rather weak and will be going to the [facility]. Looking at authorization. Denae came to the room and spoke to patient his and his daughter. They are very keen to take the patient home as 3 daughters all nurses and they will take care of him at home. Patient earlier today to abdominal cramping and some loose stools.'s tube feeding was held. Told the nurse to start back at the rate of 40 cc an hour. He was before the getting it at 55 cc an hour. Incentive spirometry was again emphasized. Patient remains on 4 L of oxygen. November 19: I saw the patient this morning. Hence I am in the evening. Morning was sitting with his sons. Has some edema. Lungs had crackles I gave him 40 mg of Lasix. He did make good urine. Tube feeding was held from the previous evening of because of abdominal cramping. Acute abdominal series showed nonspecific bowel gas pattern and SBO to be ruled out. Family and patient was updated. Told him discharge will depend on day by day. Later this afternoon CT scanAnd abdomen pelvis done. Showed small bowel to be 3 point centimeter dilated. Some anasarca. Gastric findings. Gallstones. Later spoke to Dr. Irby from general surgery. They will further review and decide about further plan of action. Will give further dose of IV Lasix because of fluid overload from likely hypoalbuminemia and IV fluids previously received. Patient may take his pills by mouth. Total time spent today about 1 hour with over 40 minutes of discussion. Patient did state his breathing is better after Lasix this morning. November 20: Saw the patient this morning. was present. Patient received 2 more doses of Lasix. Diuresed well. Breathing much better. Lungs are sounding better. Discussed with Dr. Zepeda other surgeon. He is taking 3 cc out of the balloon and the gastrostomy tube. Started trickle feeding at 5 cc an hour. Will see how this does. Later in the day ran into the and the daughter again. Did update them on the same. Dilaudid was discontinued yesterday but morphine was ordered by surgery for patient having pain. Concerns about GI issues with that we will DC the morphine. As family does not want the same. November 21: Patient reclining bed. Tired. Several family members at the bedside. Including his and eldest daughter. Patient started on trickle feed yesterday at 5 cc an hour. This morning he has been on 10 cc an hour. Still having some loose stools. C. difficile was ordered. Patient on 2 L of nasal cannula. Has diuresed well. Will give an additional dose of Lasix today. If C. difficile is negative and the diarrhea is from the tube feedings we may have to use a fecal management system to keep him comfortable. Otherwise patient remains NPO. Dietitian is following the patient. Care was discussed length with patient the and daughter at the bedside. Questions answered. Liquid Tylenol has been added for abdominal pain. Avoid narcotics. Elevated white count likely from Solu-Medrol 11/23/2023--patient was feeling better today. Multiple family member at bedside. No issues overnight. Normal saline at 10 cc an hour, tube feeding at 20 cc an hour, remains on Zosyn, on 3 L oxygen. Afebrile. Heart rate 62, respiratory rate 16, blood pressure 114/67, saturating 91% on 3 L. WBCs 14.5, 9.7 hemoglobin. Platelet 242. BMP is unremarkable. Pulmonary and general surgery following. General surgery recommended to continue tube feeds at 20 cc/h. 11/24/2023--patient reported significant abdominal discomfort, also noted to have leak around G-tube. General surgery is following, evaluated the patient at bedside, adjusted tube feeds. Also reported having diarrhea, on 2 L oxygen, went up to 5 L. Blood pressure was low, 500 mL fluid bolus with close monitoring of respiratory status ordered. Currently on DuoNebs, Solu-Medrol, will continue Zosyn. Chest x-ray showed a left lower lobe infiltrate. Abdominal x-ray showed multiple air-fluid levels. CT abdomen showed multiple dilated small bowel loops, consistent with obstruction, pneumoperitoneum, cholelithiasis and ascites. WBCs 14.1, platelet 255, hemoglobin 8.9. NG tube in place. Family at bedside. patient transferred to SICU for close monitoring. 11/25/23--patient is currently in the ICU, required Levophed overnight due to low blood pressure, low urine output with creatinine trending up. Nephrology following. Dental Hygiene Administrative Assistant also following. Patient remains n.p.o., NG tube in place, following NG tube insertion patient had total of 2 L output, J-tube was draining approximately 200 cc over last 8 hours, continues to have abdominal pain and abdominal tenderness. Patient on IV fluids. Currently on 4 L oxygen. WBCs 8.2, hemoglobin 12.3, platelet 188. Chest x-ray earlier today showed right sided port and a stable left lung airspace disease, NG tube in place. Patient currently on Zosyn, on IV Dilaudid for pain control, on IV Solu-Medrol. General surgery planning for OR today, started on TPN. 11/26/23--patient was seen and examined today. Patient is currently sedated, intubated on mechanical ventilation. Family at bedside. Patient underwent ex lap, abdominal washout, small bowel resection with new feeding jejunostomy tube placement yesterday, small bowel was noted to be perforated with significant contamination of abdominal cavity. Patient is currently on vancomycin and Zosyn. Creatinine went up to 2.85, nephrology following, recommended to continue IV fluids, avoid nephrotoxin Preserved EF on echocardiogram.. Patient currently on Levophed, vasopressin in the ICU for close monitoring. Patient is afebrile, heart rate 122, blood pressure 129/76, currently on mechanical ventilation, sedated. November 26: ICU. Intubated. FiO2 60 and a PEEP of 5. Drips include IV amiodarone. Heart rate was up early did get fired microgram of IV digoxin and 2.5 mg of IV Lopressor. Did drop her blood pressure bit. Urine output was low. Received 80 mg of IV Lasix. Ahmet to 150 cc. Other drips include IV propofol, vasopressin, Levophed. TPN was started yesterday. Antibiotics include IV Zosyn and vancomycin. Patient has a J-tube to drainage to gravity. Spoke to patient's younger daughter and at the bedside. Prognosis guarded. Continue current treatment plan. Chest x-ray shows right lower lobe consolidation. Small pleural effusion. November 27: ICU. Intubated. FiO2 55 and a PEEP of 5. Antibiotics include IV vancomycin. Drips include Levophed at a small dose, IV vasopressin, propofol, amiodarone. Patient converted to sinus rhythm this morning. Getting TPN and normal saline at 75 cc an hour. Urine output about 25 cc an hour. RAYA drain put out about 260 cc last 12 hours that is last sales support specialist. NG tube with bilious output. And also GI J-tube output to gravity. Spoke to patient's and daughter at the bedside. They understand patient still not out of the kee. Platelets have dropped-therefore probably Zosyn stopped. November 28: ICU. Intubated. FiO2 55 and a PEEP of 5. Patient is in sinus rhythm. Seen this morning. Due for dialysis catheter this afternoon. Urine output about 15 to 20 cc an hour. Patient is on IV Lasix 80 mg every 12. Saline is KVO. Drips include IV propofol vasopressin. Patient having significant output through the RAYA drain and the jejunostomy tube to drainage. Creatinine had been getting worse. Patient's at the bedside. Understands patient's remains critically ill. Hemoglobin is down to 7. Given that patient's pain hypotensive, and on vasopressin we will give a unit of blood with dialysis. Getting TPN antibiotic changed to IV meropenem Active Medications Acetaminophen (Acetaminophen Tab 325 Mg Tab) 650 mg PO Q4HR PRN PRN Reason: Fever and/ or Pain Last Admin: 11/22/23 08:46 Dose: 650 mg Acetaminophen (Acetaminophen Oral Susp (Peds) 3,840 Mg/120 Ml Bottle) 480 mg PO Q4HR PRN PRN Reason: Fever Hydrocodone Bitart/Acetaminophen (Hydrocodone/Apap 5-325mg 1 Each Tab) 1 each PO Q4HR PRN PRN Reason: Pain Last Admin: 11/25/23 08:03 Dose: 1 each Albuterol/Ipratropium (Ipratropium-Albuterol 3 Ml Neb) 3 ml INHALATION RT-QID NIRMAL Last Admin: 11/29/23 15:06 Dose: 3 ml Albuterol/Ipratropium (Ipratropium-Albuterol 3 Ml Neb) 3 ml INHALATION RT-Q2H PRN PRN Reason: Shortness Of Breath Or Wheezing Last Admin: 11/26/23 04:04 Dose: 3 ml Chlorhexidine Gluconate (Chlorhexidine Gluconate 15 Ml Cup) 15 ml MUCOUS MEM BID NIRMAL Last Admin: 11/29/23 08:36 Dose: 15 ml Dextrose/Water (Dextrose 50% Syringe 50 Ml) 25 ml IVP PER PROTOCOL PRN; Protocol PRN Reason: Hypoglycemia Dextrose/Water (Dextrose 50% Syringe 50 Ml) 50 ml IVP PER PROTOCOL PRN; Protocol PRN Reason: Hypoglycemia Furosemide (Furosemide 10 Mg/Ml 10 Ml Vial) 80 mg IV Q12H NIRMAL Hydromorphone HCl (Hydromorphone 1 Mg/Ml 1 Ml Syringe) 1 mg IVP Q3HR PRN PRN Reason: Pain Last Admin: 11/29/23 11:03 Dose: 1 mg Propofol 1,000 mg/ IV Solution 100 mls @ 9.36 mls/hr IV .[id number] NIRMAL; Protocol Last Titration: 11/29/23 10:28 Dose: 35 mcg/kg/min, 16.38 mls/hr Vasopressin 20 unit/ Sodium (Chloride) 51 mls @ 4.59 mls/hr IV .[id number] NIRMAL; Protocol Last Admin: 11/29/23 11:56 Dose: 0.03 units/min, 4.59 mls/hr Norepinephrine Bitartrate 32 (mg/ Sodium Chloride) 250 mls @ 1.097 mls/hr IV .Q24H NIRMAL; Protocol Last Admin: 11/29/23 08:42 Dose: Not Given Parenteral Vitamin Supplement 10 ml/ Zinc/Copper/Manganese/Selenium 1 ml/ Sodium Acetate 40 meq/ Potassium Acetate 20 meq/ Calcium Gluconate 1.5 gm/Magnesium Sulfate 0.25 gm/Amino Acids/Dextrose 1,056.5 mls @ 40 mls/hr IV .Q24H NIRMAL Stop: 11/29/23 19:50 Last Admin: 11/29/23 03:46 Dose: 40 mls/hr Sodium Chloride (Saline 0.9%) 1,000 mls @ 20 mls/hr IV .Q24H NIRMAL Last Admin: 11/28/23 17:28 Dose: 75 mls/hr Meropenem 1 gm/ Sodium (Chloride) 100 mls @ 33.333 mls/hr IVPB Q12HR [facility] Last Admin: 11/29/23 09:20 Dose: 33.333 mls/hr Parenteral Vitamin Supplement 10 ml/ Zinc/Copper/Manganese/Selenium 1 ml/ Sodium Acetate 30 meq/ Potassium Acetate 10 meq/ Calcium Gluconate 1 gm/Amino Acids/Dextrose 1,041 mls @ 75 mls/hr IV .BY DURATION [facility] Sodium Acetate 30 meq/Potassium Acetate 10 meq/Calcium Gluconate 1 gm/ Amino Acids/Dextrose 1,030 mls @ 75 mls/hr IV .BY DURATION [facility] Insulin Aspart (Insulin Aspart (Novolog) 100 Unit/Ml Vial) 0 unit SQ 0000,0600,1200,1800 [facility]; Protocol Last Admin: 11/29/23 11:52 Dose: 8 unit Insulin Detemir (Insulin Detemir (Levemir) 100 Unit/Ml Syr) 16 unit SQ DAILY@0700 [facility] Last Admin: 11/29/23 11:53 Dose: 16 unit Lidocaine HCl (Lidocaine 1% (10mg/Ml) For Iv Start) 0.1 ml INTRADERMA PER PROTOCOL PRN PRN Reason: IV Start Stop: 12/12/23 05:39 Methylprednisolone Sodium Succinate (Methylprednisolone Sod Succi 40 Mg/Ml 1 Ml Vial) 40 mg IV Q12HR [facility] Last Admin: 11/29/23 08:36 Dose: 40 mg Metoprolol Tartrate (Metoprolol Tartrate 5 Mg/5 Ml Vial) 2.5 mg IVP Q6HR PRN PRN Reason: Heart Rate - HIGH Last Admin: 11/27/23 08:25 Dose: 2.5 mg Miscellaneous Information (Magnesium Replacement Protocol 1 Each Misc) 1 each MISCELLANE DAILY PRN; Protocol PRN Reason: Per Protocol Morphine Sulfate (Morphine Sulfate 2 Mg/Ml Syringe) 1 mg IVP Q4HR PRN PRN Reason: Pain Control Last Admin: 11/26/23 15:26 Dose: 1 mg Morphine Sulfate (Morphine Sulfate 2 Mg/Ml Syringe) 2 mg IVP Q4HR PRN PRN Reason: Pain/Discomfort Last Admin: 11/26/23 09:35 Dose: 2 mg Naloxone HCl (Naloxone 0.4 Mg/Ml 1 Ml Vial) 0.2 mg IV Q2M PRN PRN Reason: Opioid Reversal Pantoprazole Sodium (Pantoprazole 40 Mg/10 Ml Vial) 40 mg IVP BID NIRMAL Last Admin: 11/29/23 08:36 Dose: 40 mg Past medical history to include: GERD Social history: . No smoking. Physical examination: VITAL SIGNS: 97.4, 61, 28, 143 x 73, 99% on the ventilator GENERAL: Sedated, right chest wall port EYES: Pupils equal. Conjunctiva edouard l. HEENT: External appearance of nose and ears normal, oral cavity-endotracheal tube. NG tube NECK: JVD unable to assess; masses not palpable. HEART: First and second heart sounds are normal; edema, present LUNGS: Respiratory rate increased, decreased breath sounds t ABDOMEN: Soft, nontender, liver spleen not palpable, no masses palpable..jejunostomy tube-attached to gravity. RAYA drain. Incision with stitches PSYCH: Sedated INVESTIGATIONS, reviewed in the clinical context: November 28: White count 8.1 hemoglobin 7 platelets 32 sodium 140 potassium 4.4 BUN 106 creatinine 5.38 albumin 1.9 November 27: White 11.2 hemoglobin 7.9 platelets 46 potassium 4.3 BUN 93 creatinine 4.81 November 26: White count 13 hemoglobin 9.4 platelets sodium 140 potassium 4.4 BUN 83 creatinine 3.71 calcium 6.1 albumin 2.1 November 20: White count 14.4 hemoglobin 8.8 platelets 229 potassium 4.1 BUN [address] scan abdomen [November 19] possible small bowel obstruction Stool: C. difficile negative November 16: White count 9.1 hemoglobin 7.9 platelets 259 potassium 4.3 creatinine 0.92 November 15: WBC 13 hemoglobin 7.7 platelets 248 potassium 4.3 creatinine 0.87 2D echo: EF 55 to 60%. November 14: White count 10.7 hemoglobin 7.5 platelets 239 potassium 4.2 creatinine 0.96 Kidneys bladder: Unremarkable November 13: White count 12 hemoglobin 6.9 platelets 276 potassium 4.4 creatinine 1.21 magnesium 1.8 iron 6 TIBC 365% saturation 1.64 transferrin 261 ferritin 34.6 B12 569 folate 4.4 November 12: White count 14 hemoglobin 7.6 platelets 333 sodium 136 BUN 26 creatinine 1.57 November 11: Creatinine 0.86 EGD: Large amount of retained solid liquid food noted in the stomach. Large superficial gastric antral ulceration involving most of the antrum extending into the pylorus causing pyloric stenosis. Biopsies were obtained. Chest x-ray film personally reviewed by me-scattered infiltrates Assessment plan: -Aspiration pneumonitis bilateral from retained gastric contents mostly food and liquids, causing acute hypoxic respiratory failure: IV Zosyn-changed to IV meropenem Pulmonary following -Acute pulmonary edema and fluid overload from hypoalbuminemic state and fluids from IV.: Better -Small l bowel perforation at site of jejunostomy tube tip with balloon..: Portion of small bowel resected. On November 24. New J-tube was placed.-To drainage to gravity N.p.o. NG tube -Acute kidney injury. Possible ATN from hypotensive shock: Worsening Renal ultrasound unremarkable Followed by nephrology -Nutrition Jejunostomy tube placed November [address] Ewing Getting TPN. -Acute recurrent atrial fibrillation-converted to sinus rhythm today IV amiodarone. Cardiology following Lopressor intermittently -Acute hypoxic respiratory failure from aspiration pneumonia, status post ventilator assisted: Reintubated November 25. FiO2 60 PEEP of 5 -Normocytic anemia likely to secondary underlying lymphoma. Also anemia of blood draw. Iron deficiency anemia Received a unit of blood. IV iron. - -Severe thrombocytopenia. Would consider coagulation disorder secondary to infection., In the setting of underlying lymphoma.: Worsening Zosyn stopped Hematology following. -Acute blood loss anemia, Secondary to blood ordered -GERD PPI -Acute diarrhea secondary to tube feeding.: Resolved C. difficile ruled out. -Large superficial gastric antral ulceration involving the gastric antrum extending into the pylorus with gastric outlet obstruction. 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 Port placed. For outpatient PET scan. -Full code For dialysis catheter and dialysis today. Urology units of blood ordered. Antibiotic changed to IV meropenem. Getting TPN. Discussed with at the bedside prognosis very guarded. Past Medical History Past Medical History: GERD/Reflux History of Any Multi-Drug Resistant Organisms: None Reported Past Surgical History: Heart Catheterization Additional Past Surgical History / Comment(s): colonsocopy,spinal injection, Past Anesthesia/Blood Transfusion Reactions: No Reported Reaction Past Psychological History: No Psychological Hx Reported Smoking Status: Never smoker Past Alcohol Use History: None Reported Past Drug Use History: None Reported
[2023-11-29 17:51] LABS: Glucose,Whole Blood 278 mg/dL (70-110)
--- NOTE | 2023-11-29 19:31 | P.GSCN ---
History of Present Illness History of present illness: 73-year-old gentleman patient has history of perforated bowel with exploratory laparotomy I was consulted for placement of dialysis catheter. Patient has history of acute kidney injury also patient has history of A-fib and septicemia patient was on vasopressin and TPN Patient has been intubated Chest rhonchi bilateral Abdomen patient has exploratory lap Femorals are 1+ bilateral Plan is placement of a dialysis catheter Past Medical History Past Medical History: GERD/Reflux History of Any Multi-Drug Resistant Organisms: None Reported Past Surgical History: Heart Catheterization Additional Past Surgical History / Comment(s): colonsocopy,spinal injection, Past Anesthesia/Blood Transfusion Reactions: No Reported Reaction Past Psychological History: No Psychological Hx Reported Smoking Status: Never smoker Past Alcohol Use History: None Reported Past Drug Use History: None Reported - Past Family History Father Family Medical History: Cancer Medications and Allergies Home Medications Medication Instructions Recorded Confirmed Type Fluticasone Nasal Dawn [Flonase 2 spray EA NOSTRIL DAILY 11/11/23 11/12/23 History Nasal Dawn] Pantoprazole Sodium 40 mg PO BID 11/11/23 11/12/23 History Allergies Allergy/AdvReac Type Severity Reaction Status Date / Time No Known Allergies Allergy Verified 11/12/23 09:32 Surgical - Exam Vital Signs Temp Pulse Resp BP Pulse Ox 96.6 F L 73 16 135/71 95 11/12/23 09:26 11/12/23 09:26 11/12/23 09:26 11/12/23 09:26 11/12/23 09:26 Results - Labs 11/29/23 04:02 11/29/23 04:02 Abnormal Lab Results - Last 24 Hours (Table) 11/28/23 11/29/23 11/29/23 Range/Units 23:40 04:02 04:02 RBC 2.57 L (4.30-5.90) m/uL Hgb 7.0 L (13.0-17.5) gm/dL Hct 23.3 L (39.0-53.0) % MCHC 30.0 L (31.0-37.0) g/dL RDW 19.6 H (11.5-15.5) % Plt Count 32 L (150-450) k/uL Chloride 113 H (98-107) mmol/L Carbon Dioxide 18 L (22-30) mmol/L BUN 106 H* (9-20) mg/dL Creatinine 5.38 H (0.66-1.25) mg/dL Glucose 263 H (74-99) mg/dL POC Glucose (mg/dL) 314 H (70-110) mg/dL Calcium 6.9 L (8.4-10.2) mg/dL Phosphorus 5.0 H (2.5-4.5) mg/dL Total Protein 4.2 L (6.3-8.2) g/dL Albumin 1.9 L (3.5-5.0) g/dL Crossmatch 11/29/23 11/29/23 11/29/23 Range/Units 05:53 11:47 15:35 RBC (4.30-5.90) m/uL Hgb (13.0-17.5) gm/dL Hct (39.0-53.0) % MCHC (31.0-37.0) g/dL RDW (11.5-15.5) % Plt Count (150-450) k/uL Chloride (98-107) mmol/L Carbon Dioxide (22-30) mmol/L BUN (9-20) mg/dL Creatinine (0.66-1.25) mg/dL Glucose (74-99) mg/dL POC Glucose (mg/dL) 312 H 308 H (70-110) mg/dL Calcium (8.4-10.2) mg/dL Phosphorus (2.5-4.5) mg/dL Total Protein (6.3-8.2) g/dL Albumin (3.5-5.0) g/dL Crossmatch See Detail 11/29/23 Range/Units 17:50 RBC (4.30-5.90) m/uL Hgb (13.0-17.5) gm/dL Hct (39.0-53.0) % MCHC (31.0-37.0) g/dL RDW (11.5-15.5) % Plt Count (150-450) k/uL Chloride (98-107) mmol/L Carbon Dioxide (22-30) mmol/L BUN (9-20) mg/dL Creatinine (0.66-1.25) mg/dL Glucose (74-99) mg/dL POC Glucose (mg/dL) 278 H (70-110) mg/dL Calcium (8.4-10.2) mg/dL Phosphorus (2.5-4.5) mg/dL Total Protein (6.3-8.2) g/dL Albumin (3.5-5.0) g/dL Crossmatch Microbiology - Last 24 Hours (Table) 11/26/23 12:22 Blood Culture - Preliminary Blood Diabetes panel 11/29/23 Range/Units 04:02 Sodium 140 (137-145) mmol/L Potassium 4.4 (3.5-5.1) mmol/L Chloride 113 H (98-107) mmol/L Carbon Dioxide 18 L (22-30) mmol/L BUN 106 H* (9-20) mg/dL Creatinine 5.38 H (0.66-1.25) mg/dL Glucose 263 H (74-99) mg/dL Calcium 6.9 L (8.4-10.2) mg/dL AST 29 (17-59) U/L ALT 12 (4-49) U/L Alkaline Phosphatase 80 (38-126) U/L Total Protein 4.2 L (6.3-8.2) g/dL Albumin 1.9 L (3.5-5.0) g/dL Calcium panel 11/29/23 Range/Units 04:02 Calcium 6.9 L (8.4-10.2) mg/dL Phosphorus 5.0 H (2.5-4.5) mg/dL Albumin 1.9 L (3.5-5.0) g/dL Pituitary panel 11/29/23 Range/Units 04:02 Sodium 140 (137-145) mmol/L Potassium 4.4 (3.5-5.1) mmol/L Chloride 113 H (98-107) mmol/L Carbon Dioxide 18 L (22-30) mmol/L BUN 106 H* (9-20) mg/dL Creatinine 5.38 H (0.66-1.25) mg/dL Glucose 263 H (74-99) mg/dL Calcium 6.9 L (8.4-10.2) mg/dL Adrenal panel 11/29/23 Range/Units 04:02 Sodium 140 (137-145) mmol/L Potassium 4.4 (3.5-5.1) mmol/L Chloride 113 H (98-107) mmol/L Carbon Dioxide 18 L (22-30) mmol/L BUN 106 H* (9-20) mg/dL Creatinine 5.38 H (0.66-1.25) mg/dL Glucose 263 H (74-99) mg/dL Calcium 6.9 L (8.4-10.2) mg/dL Total Bilirubin 0.5 (0.2-1.3) mg/dL AST 29 (17-59) U/L ALT 12 (4-49) U/L Alkaline Phosphatase 80 (38-126) U/L Total Protein 4.2 L (6.3-8.2) g/dL Albumin 1.9 L (3.5-5.0) g/dL
--- NOTE | 2023-11-29 19:34 | P.PCN ---
Description of Procedure: Preop diagnosis acute kidney injury, perforated bowel with A-fib A-fib Postop the same Procedure placement of a dialysis catheter right femoral approach ultrasound- guided Right groin was prepped and draped in Prestel manner ultrasound-guided micropuncture introduced with local anesthesia micropuncture guide was passed and 4 [place] sheath advanced up the guidewire. Then we passed the regular guidewire without any resistance dilator was advanced. The guidewire then we placed 20 cm dialysis catheter on the top of guidewire guidewire was removed flushed with heparin saline hep-locked and secured with 3-0 nylon dressing applied patient tarted the procedure well
[2023-11-29] MEDS: FUROSEMIDE 10 MG/ML 10 ML VIAL IV SCH (20:00)
[2023-11-29] MEDS: 1: MVI, ADULT NO.4 WITH VIT K 10 ML, TRACE (CONC-1ML/DOSE) 1 ML, SODIUM ACETATE 30 MEQ, IV SCH (20:51)
[2023-11-29 22:38] LABS: Hepatitis B Surface Antigen Nonreactive (Nonreactive)
[2023-11-29 22:46] LABS: Hepatitis B Surface AB- Quant 3.5 mIU/mL
[2023-11-30 01:33] LABS: Glucose,Whole Blood 276 mg/dL (70-110)
[2023-11-30 05:12] LABS: ABG Base Excess -1.3 mmol/L; ABG HCO3 23 mmol/L (21-25); ABG Oxygen Saturation 97.5 % (94-97); ABG PCO2 36 mmHg (35-45); ABG PH 7.42 (7.35-7.45); ABG PO2 88 mmHg (83-108); ABG TCO2 24 mmol/L (19-24); Allen Test Performed? Yes
[2023-11-30 05:26] LABS: Anisocytosis Slight; HCT 24.2 % (39.0-53.0); HGB 8.1 gm/dL (13.0-17.5); Hypochromasia Moderate; MCH 29.5 pg (25.0-35.0); MCHC 33.6 g/dL (31.0-37.0); MCV 87.9 fL (80.0-100.0); Mean Platelet Volume 16.4; Platelet Count 41 k/uL (150-450); Poikilocytosis Slight; RBC 2.75 m/uL (4.30-5.90); RDW 19.8 % (11.5-15.5); WBC 10.8 k/uL (3.8-10.6)
[2023-11-30 05:41] LABS: ALT 15 U/L (4-49); African American GFR (CKD) 18 (>60 ml/min/1.73 sqM); Albumin 2.1 g/dL (3.5-5.0); Anion Gap 8 mmol/L; Blood Urea Nitrogen 93 mg/dL (9-20); Carbon Dioxide 21 mmol/L (22-30); Chloride 104 mmol/L (98-107); Glucose 273 mg/dL (74-99); Non-African American GFR(CKD) 16 (>60 ml/min/1.73 sqM); Sodium 133 mmol/L (137-145); Total Bilirubin 0.7 mg/dL (0.2-1.3); Total Protein 4.7 g/dL (6.3-8.2)
[2023-11-30 05:49] LABS: AST 40 U/L (17-59); Alkaline Phosphatase 66 U/L (38-126); Magnesium 1.9 mg/dL (1.6-2.3); Phosphorus 4.4 mg/dL (2.5-4.5); Potassium 4.3 mmol/L (3.5-5.1)
--- NOTE | 2023-11-30 06:34 | XR ---
EXAMINATION TYPE: XR chest 1V portable DATE OF EXAM: 11/30/2023 COMPARISON: 11/29/2023 HISTORY: Shortness of breath TECHNIQUE: Single frontal view of the chest is obtained. FINDINGS: There is an ET tube 4.6 cm above the josseline. There is an NG tube within the stomach. There is a Mediport catheter on the right terminating in the right atrium. There is no change in the bilateral lower lobe opacities consistent with a combination of pleural eff usion and atelectasis or pneumonic infiltrate. There is no pneumothorax. The pulmonary vasculature is not congested. The osseous structures are inta ct IMPRESSION: 1. No change in the moderate to marked acute cardiopulmonary disease is described. 2. NG tube within the stomach. 3. ET tube 4.6 cm above the josseline. 4. No pneumothorax. [facility], , 11/30/2023 6:31 AM
[2023-11-30 06:48] LABS: Glucose,Whole Blood 315 mg/dL (70-110)
[2023-11-30] MEDS ORDERED: methylPREDNISolone SOD SUCCI 40 MG/ML 1 ML VIAL IV SCH (09:00)
--- NOTE | 2023-11-30 10:21 | P.PN ---
Subjective Patient is seen in follow-up for acute kidney injury. Patient underwent exploratory laparotomy with small bowel obstruction NG tube replacement Sep tem2023. Off vasopressors. Intubated. Receiving TPN. Nonoliguric. Started on hemodialysis November 29, 2023. Tolerated sled well. Vital signs stable. Off vasopressors. General: Resting in bed. HEENT: Intubated. LUNGS: Scattered rhonchi. HEART: Irregular rate and rhythm. ABDOMEN: Abdominal dressing noted. No drainage. EXTREMITITES: 1+ edema. Objective - Vital Signs Vital signs: Vital Signs Temp 97.9 F 11/30/23 04:00 Pulse 65 11/30/23 07:50 Resp 23 11/30/23 07:00 BP 137/71 11/30/23 07:00 Pulse Ox 100 11/30/23 07:00 FiO2 55 11/30/23 07:53 Intake & Output 11/29/23 11/30/23 11/30/23 18:59 06:59 18:59 Intake Total 2531.637 1420.125 137.744 Output Total 785 2325 50 Balance 233.306 -412.875 87.744 Weight 90.2 kg 116.1 kg Intake: IV 600 1165 95 0.9 KVO 230 240 20 Meropenem 1 gm In Sodium 100 100 Chloride 0.9% 100 ml @ 33 .333 mls/hr IVPB Q12HR [facility] Rx#:[id number] Mvi, Adult No.4 with Vit 825 75 K 10 ml Trace (Conc-1Ml/ Dose) 1 ml Sodium Acetate 30 meq Potassium Acetate 10 meq Calcium Gluconate 1 gm In Amino Acids 5 %/ Dextrose 20 % 1,000 ml @ 75 mls/hr IV .BY DURATION [facility] Rx#:[id number] Mvi, Adult No.4 with Vit 195 K 10 ml Trace (Conc-1Ml/ Dose) 1 ml Sodium Acetate 40 meq Potassium Acetate 20 meq Calcium Gluconate 1.5 gm Magnesium Sulfate gm 0.5 gm In Amino Acids 5 %/Dextrose 20 % 1,000 ml @ 40 mls/hr IV .Q24H [facility] Rx#:[id number] Sodium Chloride 0.9% 1, 75 000 ml @ 75 mls/hr IV . [id number] [facility] Rx#:[id number] Intake, IV Titration 147.306 247.125 42.744 Amount Vasopressin 20 unit In 49.802 47.125 Sodium Chloride 0.9% 50 ml @ 0.03 UNITS/MIN 4.59 mls/hr IV .Q11H7M [facility] Rx# :[id number] propofoL 1,000 mg In 97.504 200.000 42.744 Empty Bag 1 bag @ 20 MCG/ KG/MIN 9.36 mls/hr IV . [id number] [facility] Rx#:[id number] Blood Product 271 Rc Pheresis As-3 Unit 271 [id number] Hemodialysis 500 Output: Gastric Drainage 25 Drainage 475 310 Left Abdomen 75 110 Right Abdomen 400 200 Urine 285 515 50 Hemodialysis 1000 Hemodialysis Net Amount 500 Other: Voiding Method Indwelling Catheter Indwelling Catheter ABP, PAP, CO, CI - Last Documented Arterial Blood Pressure 156/67 - Labs CBC & Chem 7: 11/30/23 05:13 11/30/23 05:13 Labs: Abnormal Lab Results - Last 24 Hours (Table) 11/29/23 11/29/23 11/29/23 Range/Units 11:47 15:35 17:50 WBC (3.8-10.6) k/uL RBC (4.30-5.90) m/uL Hgb (13.0-17.5) gm/dL Hct (39.0-53.0) % RDW (11.5-15.5) % Plt Count (150-450) k/uL ABG O2 Saturation (94-97) % Hemoglobin (13.0-17.5) gm/dL Sodium (137-145) mmol/L Carbon Dioxide (22-30) mmol/L BUN (9-20) mg/dL Creatinine (0.66-1.25) mg/dL Glucose (74-99) mg/dL POC Glucose (mg/dL) 308 H 278 H (70-110) mg/dL Calcium (8.4-10.2) mg/dL Ionized Calcium Krystal (4.5-5.3) mg/dL Total Protein (6.3-8.2) g/dL Albumin (3.5-5.0) g/dL Crossmatch See Detail 11/30/23 11/30/23 11/30/23 Range/Units 01:32 05:06 05:13 WBC 10.8 H (3.8-10.6) k/uL RBC 2.75 L (4.30-5.90) m/uL Hgb 8.1 L (13.0-17.5) gm/dL Hct 24.2 L (39.0-53.0) % RDW 19.8 H (11.5-15.5) % Plt Count 41 L (150-450) k/uL ABG O2 Saturation 97.5 H (94-97) % Hemoglobin 8.2 L (13.0-17.5) gm/dL Sodium (137-145) mmol/L Carbon Dioxide (22-30) mmol/L BUN (9-20) mg/dL Creatinine (0.66-1.25) mg/dL Glucose (74-99) mg/dL POC Glucose (mg/dL) 276 H (70-110) mg/dL Calcium (8.4-10.2) mg/dL Ionized Calcium Krystal (4.5-5.3) mg/dL Total Protein (6.3-8.2) g/dL Albumin (3.5-5.0) g/dL Crossmatch 11/30/23 11/30/23 11/30/23 Range/Units 05:13 05:13 06:47 WBC (3.8-10.6) k/uL RBC (4.30-5.90) m/uL Hgb (13.0-17.5) gm/dL Hct (39.0-53.0) % RDW (11.5-15.5) % Plt Count (150-450) k/uL ABG O2 Saturation (94-97) % Hemoglobin (13.0-17.5) gm/dL Sodium 133 L (137-145) mmol/L Carbon Dioxide 21 L (22-30) mmol/L BUN 93 H (9-20) mg/dL Creatinine 3.61 H (0.66-1.25) mg/dL Glucose 273 H (74-99) mg/dL POC Glucose (mg/dL) 315 H (70-110) mg/dL Calcium 7.0 L (8.4-10.2) mg/dL Ionized Calcium Krystal 4.0 L (4.5-5.3) mg/dL Total Protein 4.7 L (6.3-8.2) g/dL Albumin 2.1 L (3.5-5.0) g/dL Crossmatch Microbiology - Last 24 Hours (Table) 11/26/23 12:22 Blood Culture - Preliminary Blood Assessment and Plan Plan: Assessment: 1. Acute kidney injury secondary to ATN secondary to septic shock. Creatinine 0.86 on admission and up to 5.38 dated November 29, 2023. Urine output improved. UA fairly benign. No hydronephrosis noted on imaging. 2. Perforated small bowel status post exploratory laparotomy with abdominal washout, small bowel resection and J-tube replacement November 25, 2023. 3. A-fib with RVR. s/p amiodarone drip. Also received digoxin this admission. 4. Recently diagnosed gastric B-cell lymphoma. 5. Septic shock. Likely abdominal source. On IV antibiotics. Off vasopressors now. 6. Hypocalcemia secondary to acute kidney injury. Replaced. Improved. 7. Metabolic acidosis secondary to acute kidney injury. Improved. Plan: Currently seen while undergoing hemodialysis. Plan to hold tomorrow. Maintain IV Lasix. Receiving TPN per surgery. Phosphorus level 4.4 dated November 30, 2023. Avoid nephrotoxins. Preserved EF noted on echocardiogram. Wean FiO2. Case discussed at length with patient's family present at bedside.
[2023-11-30 12:04] LABS: Glucose,Whole Blood 195 mg/dL (70-110)
--- NOTE | 2023-11-30 12:54 | P.PN ---
Subjective Progress Note Date: 11/30/23 Abdominal pain. This is a 73-year-old white male with history of chronic abdominal pain for the last 8 months has been treated with Protonix 40 mg daily for the last 3 months with no improvement. Patient had a 22 pound weight loss in the last [address] of the abdomen and pelvis 3 weeks ago showed thickening of the antral wall with pathological adenopathy posterior to the stomach suspicious of neoplasm. Today the patient underwent elective upper endoscopy to evaluate further, patient received IV sedation by anesthesia endoscope was inserted into the mouth, esophagus was intubated without any difficulty there was evidence of large amount of liquid and solid food noted in the stomach suggestive of gastric outlet obstruction. Scope could not be advanced through the pylorus, however in the prepyloric area there was a large superficial ulceration identified with multiple biopsies were done from this area. The body cardia and fundus could not adequately visualize because of large amount of retained food in the stomach. Scope was withdrawn back to the stomach and upon careful examination the mucosa of the antrum body and cardia as well as the fundus appeared normal. Procedure was being performed and biopsies were done patient threw up and subsequently became hypoxic there was clearly evidence of witnessed aspiration anesthesia intubated the patient, procedure was terminated, and the patient was transferred to the ICU, this consult was initiated. Patient is now on assist- control rate of 20 tidal volume 500 FiO2 70% PEEP of 10 ABG is pending, earlier ABG showed profound hypoxia patient is on propofol at 50 mcg/kg/min, next ABG is pending. Chest x-ray showed chronic changes without evidence of acute pulmonary disease. Patient was seen and examined today on 11/13/2023, remains in the ICU, intubated mechanically ventilated, on assist-control rate of 20 tidal volume 500 FiO2 50% and PEEP of 10 ABG showed a pO2 of 143 pCO2 47 pH of 7.28 hence PEEP was cut down to 6, and increased rate to 22. Patient is still requiring IV fluid at 100 cc/h/LR. Requiring norepinephrine at 0.08 mcg/kg/min he is also on propofol at 50 mg/kg/min antibiotics arce patient is receiving Zosyn. Chest x-ray is showing worsening infiltrates specially in the left lung. This could be related to aspiration pneumonia. Patient had witnessed aspiration during endoscopy/upper endoscopy.WBC count is 14 hemoglobin 7.6 basic metabolic profile is normal BUN is 26 creatinine 1.57 obviously the patient sustained some acute kidney injury baseline creatinine 0.86 patient had received fluids over the last 24 hours, remains on fluids at 100 cc/h Patient with seen and examined today on 11/14/2023, patient remains in the ICU, intubated and mechanically ventilated. Failed weaning trial yesterday and he became quite agitated and desaturated once he went off propofol. Had to be placed back on assist-control mode of mechanical ventilation and sedation. Today the patient is on assist-control rate of 22 tidal volume 500 FiO2 50% PEEP of 6. ABG showed a pO2 of 123 pCO2 51 pH of 7.32, and I cut down his FiO2 down to 45%, patient is receiving a unit of packed RBCs for hemoglobin of 6.9 today. Patient had an episode of A-fib RVR at 3 AM in the morning, seen by cardiology, and recommended patient goes on amiodarone. Still requiring norepinephrine at 0.05 mg/kg/min, he is on LR at 100 cc/h propofol at 50 mg/kg/min. Remains empirically on Zosyn for aspiration pneumonia. My plan today is transitioning the patient to Precedex, hopefully discontinue propofol, and at least give the patient a decent weaning trial or at least check weaning parameters before we proceed to weaning trial. Chest x-ray continues to show evidence of pneumonia mostly in the left lung and left lower lobe more specifically. Some pulmonary vascular congestion is noted with interstitial edema, small pleural effusion is also noted/left side. WBC count today is 12 hemoglobin 6.9 basic metabolic profile is normal bicarb is 25, BUN is 25 creatinine is improving down to 1.21 from 1.57 yesterday Patient was evaluated today on 11/15/2023, patient remains in the ICU, he was extubated yesterday, and his extubation was relatively uneventful. However the patient continues to have nasogastric tube in place, his pathology report came back showing non-Hodgkin's lymphoma, patient has gastric outlet obstruction, and the recommendation by GI is to consult surgery for a jejunostomy tube which is appropriate. Patient will be seen today by oncology and he will be seen by general surgery. In the meantime patient is comfortable, he is on 5 L nasal cannula he has LR running at 100 cc/h, he is remains on Zosyn for aspiration pneumonia remains on amiodarone which was started by cardiology for atrial fibrillation with RVR, presently in sinus rhythm. Cannot switch him to oral because of the fact that remains n.p.o., patient remains on TPN. WBC count is 10.7 hemoglobin 7.5 electrolytes are normal renal profile is normal, creatinine normalized to 0.96 Patient was evaluated today on 11/16/2023, remains in the ICU, on 5 L nasal cannula remains on amiodarone at 0.5 mg/min remains on LR at 100 cc/h, however his chest x-ray is showing some component of interstitial edema or could be findings related to his recent episode of aspiration/aspiration pneumonia, nonetheless the patient seems to be a bit symptomatic, he has intermittent cough and wheezing, I am recommending Lasix 40 mg IV push, cut down his IV fluid to 50 cc/h, continue Zosyn, patient will be placed on DuoNeb updrafts and on Solu- Medrol. Patient is scheduled to have jejunostomy-tube placement today. WBC count is 13 hemoglobin 7.7 basic metabolic profile is normal and renal profile is normal Patient was evaluated today on 11/17/2023, patient underwent uneventful placement of a jejunostomy tube yesterday, in the ICU on 5 L, patient is relatively stable, not in any distress, patient continues to have nasogastric tube in place although he did have a J-tube placed yesterday. Patient was seen by oncology for his non-Hodgkin's lymphoma involving the gastric outlet. Today's x-ray showed evidence of pneumonia/bilateral interstitial infiltrate/edema patient was given a dose of Lasix, I reminded the patient had an aspiration episode which was significant. And he required intubation mechanical ventilation for a few days.WBC count today is 9.1 hemoglobin 7.9 electrolytes are normal renal profile is normal hence I plan to transfer the patient out of the ICU to a cardiac floor. And hopefully discharge planning in the next 2 days for The patient was seen today November 18, 2023 in follow-up in the intensive care unit. He is currently sitting up in bed. Awake and alert in no acute distress. He is maintaining O2 saturations in the 90s on 5 L/min per nasal cannula. Glucose 177. Remains on DuoNeb inhalations and Solu-Medrol. Antibiotics in the form of Zosyn. He has a J-tube in place. He was initiated on vital AF 1.2 at 10 mL an hour with a goal of 82 mL/h The patient is seen today November 19, 2023 in follow-up in the intensive care unit. He is a regular medical floor overflow patient. He is currently sitting up in a chair. Awake and alert in no acute distress. He is maintaining O2 saturations in the 90s on 5 L/min per nasal cannula. No IV fluids. He denies any worsening shortness of breath, cough or congestion. He is having some issues with diarrhea. He remains on Zosyn. He is receiving vital AF at 55 mL/h with a goal of 82 mL/h. Glucose 161. Solu-Medrol, DuoNeb inhalations. The patient is seen today November 20, 2023 in follow-up on the regular medical floor. He is currently up in a chair at the bedside. Awake and alert in no acute distress. Denies any worsening shortness of breath, cough or congestion. He is maintaining O2 saturation in the 90s on 3 L/min per nasal cannula. He continues on Zosyn. Continues on bronchodilators and steroids. White count 12.3. Hemoglobin 9.0. Platelets 258. Glucose 168. He is not tolerating his tube feeds as he has developed diarrhea. C. difficile screen was negative. Abdominal series revealed cardiomegaly with left basilar acute infiltrate and/or atelectasis. Overall nonspecific bowel gas pattern. A small bowel obstruction needs to be considered. Progress note dated November 21, 2023. The patient is seen in room 517. The patient is currently on 3 L of oxygen. He continues on Zosyn. His biggest complaint has been abdominal discomfort and diarrhea. He did have a CT scan of the abdomen and pelvis. Current laboratory data includes a white count of 14.4, hemoglobin 8.8, hematocrit 28.7, and platelet count 229,000. Sodium 139, potassium 4.1, chlorides 103, CO2 30, BUN 42, creatinine 0.94. Glucose is 158. Calcium is 8.5. Progress note dated November 22, 2023. 73-year-old male seen in room 517. He currently is on 2 L of oxygen. Room air saturation was 89%. Chest CT shows bilateral patchy infiltrates. He continues on Zosyn. He is still not taking anything by mouth. No new laboratory data today other than a glucose of 138. Gram stain was negative. Progress note dated November 23, 2023. 73-year-old male seen in room 517. He is resting comfortably without complaints. He continues on saline at 10 cc an hour, tube feedings with Pivot at 20 cc an hour, Zosyn, and 2 L by nasal cannula. He has had an uneventful night. Laboratory data today includes a white count 14.5, hemoglobin 9.7, hematocrit 31.4, and a platelet count of 242,000. Sodium 138, potassium 3.7, chlorides 106, CO2 26, BUN 39, creatinine 0.95. Glucose is 181. Calcium is 8.5. Sputum sampling was negative. Progress note dated November 24, 2023. 73-year-old male who is seen in room 517. The patient has been having significant abdominal discomfort, and went for a evaluation, ordered by surgery today, to determine whether or not the feeding tube, was in proper position, and whether or not there is anything acutely going on in the abdomen. He had been having diarrhea. He is on 3 L of oxygen. He has been here for 12 days. This is a patient, that had a prior EGD, aspirated, because of gastric outlet obstruction, and was diagnosis of non-Hodgkin's lymphoma. He is currently on Zosyn, DuoNebs, and Solu-Medrol. He has been NPO. Chest x-ray showed a left lower lobe infiltrate. Abdominal x-ray showed multiple air-fluid levels. CT of the abdomen showed multiple dilated small bowel loops, consistent with obstruction, pneumoperitoneum, ascites, and cholelithiasis. White count was 14.1, hemoglobin 8.9, hematocrit 29.5, and platelet count was 255,000. Glucose was 143. 11/25/2023, the patient is being seen in the intensive care unit. The patient is critically ill, n.p.o., he has an NG tube in place. Following the NG tube insertion, there was a total of 2.0 L of output and the patient's J-tube was also draining approximately 200 cc over the past 8 hours. Continues to have abdominal pain which is rather diffuse and the patient has direct abdominal tenderness. CAT scan of the abdomen was noted and was consistent with small bowel obstruction. The patient has a stomach that was inflated and in the same time there were multiple loops of small bowel distended with fluid. This extended to the pelvis. J-tube with contrast nondilated small bowel loops within the mid abdomen. Additional loops of small bowel were seen that was dilated. There was some contrast in the right lower quadrant and contrast was also in the cecum. No transition point was identified. The dilated loops of the bowel appeared to be in the proximal jejunum and distal to the duodenum. General surgery is on the case the patient will be taken to the operating room for another exploratory laparotomy. Noted the CAT scan of the abdomen also showed pneumoperitoneum and small amount of ascites and cholelithiasis. Hemodynamically, the patient is currently on normal saline at rate of 75 cc an hour. He is hypotensive and is going to be started on pressors. He is on 4 L of oxygen by nasal cannula. He also has sustained acute kidney injury. Blood work from today shows a rise in the creatinine which is currently up to 2.5 with a BUN of 57. Serum bicarb is at 14 with an anion gap of 11. The patient WBC count is at 8.2 with a hemoglobin of 12.3 and a platelet count of 188. Chest x- ray from this morning is showing a right-sided port and a stable left lung airspace disease and an NG tube being in place. The patient remains on IV Zosyn. The patient is receiving Dilaudid for pain control. The patient remains on IV Solu-Medrol 60 mg every 6 hours. It was noted that the patient's surgical wound over the port has dehisced and there is some serous drainage and erythema at the incision site. Awake and alert and communicating. Family at the bedside. No apparent signs of respiratory distress at this point. 11/26/2023, the patient is being seen in follow-up. Events from yesterday was noted and the patient was taken to the operating room for exploratory laparotomy. The patient was found to have large amount of free fluid noted in the abdomen and there was significant contamination. There was perforation of the small bowel with the balloon of the previously inserted jejunostomy tube penetrating through the perforation. As such, the tube was removed, abdominal washout was done. Small bowel resection was done and the patient had a nodular jejunostomy tube inserted. Postop, the patient was extubated he was unable to tolerate extubation and the patient was kept intubated on mechanical ventilator and he was brought back to the intensive care unit. He is currently postop day #1 following his small bowel resection. Abdominal surgical wound site is dry clean and intact. This morning, the patient remains sedated on propofol which is currently running at 35 mcg/kg/min. He is on assist-control mode of mechanical ventilation at rate of 28, tidal volume of 550, FiO2 of 60% with a PEEP of 5. Blood gas from today shows a pH of 7.35 with a pCO2 44 and pO2 of 88. Chest x-ray shows adequate positioning of the orotracheal tube. The patient has a Mediport on the right and a subclavian triple-lumen catheter on the left and the patient has persistent bilateral pleural effusion and infiltrates in lung base bilaterally. Hemodynamically, the patient remains in shock. He has been on high-dose norepinephrine which is currently running at 0.28 mcg/kg/min and the patient is also on vasopressin at 0.03 units an hour. He is IV fluids are in the form of bicarb infusion running at rate of 150 cc an hour. He is in sinus tachycardia. NG tube output has been 250 cc over the past 8 hours and the output from the J-tube is minimal at this point in time. Urine output is quite diminished as the patient has also sustained acute kidney injury. Overall fluid balance is +4.9 L over the past 24 hours. The patient's white cell count of 5.7 with a hemoglobin 9.9 and platelet count of 172. BUN is 72 with a creatinine of 2.8 and sodium levels at 143. The calcium level is at 6.5. LFTs are normal. Triglyceride level is at 315. On 11/27/2023, the patient remains critically ill. Remains intubated and on mechanical ventilator, still awaiting shock which is essentially septic shock. Remains on propofol which is running at 50 mcg/kg/min. Remains on the mechanical ventilator, assist-control mode with rate of 28, tidal volume of 550 with an FiO2 of 60% with a PEEP of 5. Blood gas shows a pH of 7.29 with a pCO2 of 47 and pO2 of 78. The patient had a follow-up chest x-ray that showed lower lobe consolidation slightly worse on the right and the orotracheal tube is in a good location. Urine output is diminished in the order of 5 to 10 cc an hour and the patient is also developing progressive worsening renal function. Remains on normal citrate of 150 cc an hour and the patient was started on TPN which is running at 30 cc an hour. He has a triple-lumen catheter in his left subclavian. Overall fluid balance over the past 24 hours is +3.9 L. Output from the NG tube and the J-tube is minimal. Hemodynamically, he is hypotensive and norepinephrine running at 0.45 mcg/kg/min. Vasopressin is a physiologic dose. He received amiodarone and he remains on maintenance amiodarone of 0.5 mg /min and the patient continues to be in atrial fibrillation and is having episodes of tachycardia. The white cell count is at 13, hemoglobin 9.4 platelet count is pending. The patient's BUN is 83 with a creatinine of 3.7. Sodium is at 140 with a potassium level of 5.5 dropped down to 4.4 as the sample was hemolyzed. LFTs are normal. Abdominal wound is dry clean and intact. RAYA drainage is essentially serous at this point in time. 11/28/2023, the patient is being seen for a follow-up. The patient remains intubated on mechanical ventilator. This morning, the patient tolerated propofol drip running at 50 mcg/kg/min. The patient is on mechanical ventilator assist-control mode with rate of 28, tidal volume of 550, FiO2 55% with a PEEP of 5. Chest x-ray shows stable findings with lower lobe consolidations bilaterally. Blood gas shows a pH of 7.32 with a pCO2 38 and pO2 90. Neuropath y has improved and the patient is producing approximately 30 cc an hour and the overall input output balance is +3.3 L over the past 24 hours. The patient is still on pressors although his pressor requirements have improved since yesterday. He is on norepinephrine which is running at 0.05 mcg/kg/min and vasopressin physiologic dose. Also, the patient on amiodarone drip regarding his chronic ongoing atrial fibrillation. Amiodarone drip is running at 0.5 mg/min. Nevertheless, the rate is under much better control. Noted the patient was given a dose of digoxin 0.5 mg IV yesterday which helped with rate control. Remains on normal citrate of 150 cc an hour. Remains on TPN at 40 cc an hour. Output from the J-tube is fecal. Output from the NG tube is more gastric. Surgical wound site is dry clean and intact. Sputum Gram stain and culture showing Pseudomonas and Citrobacter. Note that the Citrobacter was intermediate resistance to Zosyn. This will be discussed further with infectious disease. Blood cultures are still pending for now. They have negative based on the most recent check. Blood work from today shows WBC count 11.2, hemoglobin 7.9 and platelet count of 46. Sodium is at 140, potassium is at 4.3, chloride is 114 with a bicarb of 18. He has 93 and the creatinine is 4.8. Serum random vancomycin level is at 25.7. On 11/29/2023, the patient is being seen for a follow-up. Remains intubated on the mechanical ventilator. The patient sedated on propofol which is running at 35 mcg/kg/min. Synchronous with mechanical ventilator. On today's evaluation, he is on assist-control mode with rate of 28, tidal volume of 550, FiO2 55% with a PEEP of 5. Chest x-ray shows lower lobe consolidation bilaterally worse on the right and the orotracheal tube is in good location. The blood gas showed a pH of 7.34 with a pCO2 of 35 and a pO2 of 84. No significant orotracheal secretions. Hemodynamically improved compared to yesterday. In fact, the patient is on minimal norepinephrine that was discontinued earlier this morning. The patient has converted to normal sinus rhythm. Remains on amiodarone at 0.5 mg/min. Overall fluid balance over the past 24 hours is 2.4 L positive. Urine output has been adequate and the patient is currently on IV Lasix. Neverthel ess, the patient has developed progressive worsening renal function. Creatinine is up to 5.3 on today's evaluation with a potassium level of 4.4. Serum bicarb is at 18 with an anion gap of 9. WBC count is at 8.1 with a hemoglobin of 7 and a platelet count of 32 which has dropped compared to earlier evaluation. The rest of the coagulation profile was normal from 11/28/2023. Fibrinogen level is slightly elevated. Sputum samples have shown a combination of Citrobacter and Pseudomonas aeruginosa. Based on cultures and sensitivities, the patient will be taken off his IV Zosyn and he will be switched to IV meropenem. Output from the J-tube is fecal. Output from the NG tube is gastric and surgical wound site is dry clean and intact. He is afebrile for now. Hemodynamically, the patient is doing better. He remains on TPN for nutritional support. IV fluids are also running at a rate of 75 cc an hour. Remains on vancomycin. 11/22/2023, the patient is being seen for a follow-up. The patient remains on propofol at 50 mcg/kg/min. Ventilator settings are essentially unchanged. The patient remains on assist-control mode with rate of 18, tidal volume of 400, FiO2 50% with a PEEP of 5. The blood gas showed a pH of 7.37 with a pCO2 of 43 and pO2 of 127. Chest x-ray shows no significant interval change. Patient remains on normal saline at rate of 75 cc an hour and TPN at rate of 35 cc an hour. Fluid balance is positive. Hemodialysis was performed yesterday and the second session of hemodialysis to be done today. The patient's urine output is in the order of 20 to 30 cc an hour. The patient has an NG output of 350 cc for yesterday and the drainage from the J-tube is in the order of 400 cc over the past 24 hours. The blood work shows a WBC count of 10.8, hemoglobin 8.1 and platelet count of 41. Platelet counts are essentially stable and slightly improved compared to yesterday. The sodium level is at 133, potassium is at 4.3, BUN is 93 with a creatinine of 3.6. LFTs are within normal limits. Albumin is down to 2.1. The patient is currently on no pressors. N orepinephrine and vasopressin are both discontinued and the patient remains in normal sinus rhythm. No other significant events overnight. Family has been updated on his condition. Antibiotic coverage is currently with IV meropenem. Vancomycin and Zosyn have been both discontinued. Objective - Vital Signs Vital signs: Vital Signs Temp 97.6 F 11/30/23 08:00 Pulse 64 11/30/23 11:13 Resp 29 H 11/30/23 10:00 BP 137/71 11/30/23 07:00 Pulse Ox 100 11/30/23 10:00 FiO2 50 11/30/23 11:05 Intake & Output 11/29/23 11/30/23 11/30/23 18:59 06:59 18:59 Intake Total 5146.363 4369.125 137.744 Output Total 785 2325 50 Balance 233.306 -412.875 87.744 Weight 90.2 kg 116.1 kg Intake: IV 600 1165 95 0.9 KVO 230 240 20 Meropenem 1 gm In Sodium 100 100 Chloride 0.9% 100 ml @ 33 .333 mls/hr IVPB Q12HR [facility] Rx#:[id number] Mvi, Adult No.4 with Vit 825 75 K 10 ml Trace (Conc-1Ml/ Dose) 1 ml Sodium Acetate 30 meq Potassium Acetate 10 meq Calcium Gluconate 1 gm In Amino Acids 5 %/ Dextrose 20 % 1,000 ml @ 75 mls/hr IV .BY DURATION [facility] Rx#:[id number] Mvi, Adult No.4 with Vit 195 K 10 ml Trace (Conc-1Ml/ Dose) 1 ml Sodium Acetate 40 meq Potassium Acetate 20 meq Calcium Gluconate 1.5 gm Magnesium Sulfate gm 0.5 gm In Amino Acids 5 %/Dextrose 20 % 1,000 ml @ 40 mls/hr IV .Q24H [facility] Rx#:[id number] Sodium Chloride 0.9% 1, 75 000 ml @ 75 mls/hr IV . [id number] [facility] Rx#:[id number] Intake, IV Titration 147.306 247.125 42.744 Amount Vasopressin 20 unit In 49.802 47.125 Sodium Chloride 0.9% 50 ml @ 0.03 UNITS/MIN 4.59 mls/hr IV .[id number] [facility] Rx# :[id number] propofoL 1,000 mg In 97.504 200.000 42.744 Empty Bag 1 bag @ 20 MCG/ KG/MIN 9.36 mls/hr IV . [id number] [facility] Rx#:[id number] Blood Product 271 Rc Pheresis As-3 Unit 271 [id number] Hemodialysis 500 Output: Gastric Drainage 25 Drainage 475 310 Left Abdomen 75 110 Right Abdomen 400 200 Urine 285 515 50 Hemodialysis 1000 Hemodialysis Net Amount 500 Other: Voiding Method Indwelling Catheter Indwelling Catheter ABP, PAP, CO, CI - Last Documented Arterial Blood Pressure 134/58 - Exam No acute distress, sedated on propofol, comfortable, intubated on the mechanical ventilator. The patient has an orotracheal and orogastric tube in place. HEENT examination is grossly unremarkable. Mucous membranes are moist. No oral lesions. The patient has a triple-lumen catheter in the left subclavian. Neck supple. Full range of motion. No adenopathy thyromegaly or neck vein distention. Cardiac exam revealed the PMI to be normally situated and sized. The rhythm was regular and no extrasystoles were noted during several minutes of auscultation. The first and second heart sounds were normal and physiologic splitting of the second heart sound was noted. There were no murmurs, rubs, clicks, or gallops. The patient is in sinus tachycardia. Lungs reveal mild scattered rhonchi. No wheezes or crackles. Breath sounds equal. Diminished breath sound lung base bilaterally. Abdomen distended without bowel sounds. J-tube is noted. Patient also has an NG tube in place. Mid abdominal wound which is dry clean and intact and the patient has absent bowel sounds. Extremities are intact. No cyanosis clubbing trace edema lower extremities bilaterally Skin is without rash or lesion. The wound at the Mediport site is dry and the area has been sutured Neurologic examination is brief but nonfocal. Currently sedated on propofol. - Labs CBC & Chem 7: 11/30/23 05:13 11/30/23 05:13 Labs: Abnormal Lab Results - Last 24 Hours (Table) 11/29/23 11/29/23 11/30/23 Range/Units 15:35 17:50 01:32 WBC (3.8-10.6) k/uL RBC (4.30-5.90) m/uL Hgb (13.0-17.5) gm/dL Hct (39.0-53.0) % RDW (11.5-15.5) % Plt Count (150-450) k/uL ABG O2 Saturation (94-97) % Hemoglobin (13.0-17.5) gm/dL Sodium (137-145) mmol/L Carbon Dioxide (22-30) mmol/L BUN (9-20) mg/dL Creatinine (0.66-1.25) mg/dL Glucose (74-99) mg/dL POC Glucose (mg/dL) 278 H 276 H (70-110) mg/dL Calcium (8.4-10.2) mg/dL Ionized Calcium Krystal (4.5-5.3) mg/dL Total Protein (6.3-8.2) g/dL Albumin (3.5-5.0) g/dL Crossmatch See Detail 11/30/23 11/30/23 11/30/23 Range/Units 05:06 05:13 05:13 WBC 10.8 H (3.8-10.6) k/uL RBC 2.75 L (4.30-5.90) m/uL Hgb 8.1 L (13.0-17.5) gm/dL Hct 24.2 L (39.0-53.0) % RDW 19.8 H (11.5-15.5) % Plt Count 41 L (150-450) k/uL ABG O2 Saturation 97.5 H (94-97) % Hemoglobin 8.2 L (13.0-17.5) gm/dL Sodium 133 L (137-145) mmol/L Carbon Dioxide 21 L (22-30) mmol/L BUN 93 H (9-20) mg/dL Creatinine 3.61 H (0.66-1.25) mg/dL Glucose 273 H (74-99) mg/dL POC Glucose (mg/dL) (70-110) mg/dL Calcium 7.0 L (8.4-10.2) mg/dL Ionized Calcium Krystal (4.5-5.3) mg/dL Total Protein 4.7 L (6.3-8.2) g/dL Albumin 2.1 L (3.5-5.0) g/dL Crossmatch 11/30/23 11/30/23 11/30/23 Range/Units 05:13 06:47 12:02 WBC (3.8-10.6) k/uL RBC (4.30-5.90) m/uL Hgb (13.0-17.5) gm/dL Hct (39.0-53.0) % RDW (11.5-15.5) % Plt Count (150-450) k/uL ABG O2 Saturation (94-97) % Hemoglobin (13.0-17.5) gm/dL Sodium (137-145) mmol/L Carbon Dioxide (22-30) mmol/L BUN (9-20) mg/dL Creatinine (0.66-1.25) mg/dL Glucose (74-99) mg/dL POC Glucose (mg/dL) 315 H 195 H (70-110) mg/dL Calcium (8.4-10.2) mg/dL Ionized Calcium Krystal 4.0 L (4.5-5.3) mg/dL Total Protein (6.3-8.2) g/dL Albumin (3.5-5.0) g/dL Crossmatch Microbiology - Last 24 Hours (Table) 11/26/23 12:22 Blood Culture - Preliminary Blood Assessment and Plan Plan: Acute hypoxic respiratory failure and the patient failed extubation following exploratory laparotomy. The patient chest x-ray from today shows lower lobe consolidation slightly worse on the right. The sputum culture showing a combination of Citrobacter and Pseudomonas aeruginosa. Consider hospital- acquired pneumonia, and the patient remains there is currently on IV meropenem. No interval worsening in oxygenation. Chest x-ray was noted. Blood gas was noted. 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 Patient also has a J-tube in place. Both of the tubes are con nected to suction and the patient continues to have abdominal pain with ongoing concern of a small bowel obstruction and the patient scheduled to undergo elective nephrectomy today. Small bowel perforation with abdominal contamination. The patient is status post expiratory laparotomy and small bowel resection and insertion of another jejunostomy tube. The patient is postop day # 5 Peritonitis secondary to above Septic shock secondary to above, the patient is currently off pressors Atrial fibrillation with rapid medical response, currently back into normal sinus rhythm m. Acute kidney injury, secondary to above. Currently on IV Lasix and the patient is also receiving hemodialysis and a second session of hemodialysis to be done today. Acute hypoxic respiratory failure requiring intubation mechanical ventilation secondary to aspiration during EGD on 11/12/2023. Patient was extubated on 11/14/2023. The patient was reintubated on 11/25/2023 following his abdominal surgery. Acute aspiration during upper endoscopy most likely secondary to gastric outlet obstruction secondary to non-Hodgkin's lymphoma. weight loss most likely secondary non-Hodgkin's lymphoma involving the stomach. Thrombocytopenia, likely consumptive. Drug-induced thrombocytopenia cannot be completely ruled out. No evidence of any acute bleeding at this point. Hemoglobin is stable. Platelet count is also stable, slightly improved compared to yesterday. Anemia of chronic disease, multifactorial. Plan: Continue ventilator support, no change in the mechanical ventilator for today Keep the patient sedated on propofol and titrated dose for adequate sedation Keep the patient n.p.o. Keep the NG tube to suction as well as the J-tube, discussed output with a general surgeon TPN for nutritional support Change IV fluids to KVO Antibiotic coverage with IV meropenem Monitor platelet count, improving Continue Lasix 80 mg IV every 12 hours Hemodialysis today Patient is currently off pressors and the patient is currently normal sinus rhythm. Avoid nephrotoxic agents We will continue to follow. Condition is critical. Had a lengthy discussion with the family at the bedside. General surgery is on the case. Oncology on the case. This evaluation was done more than 30 minutes. Time with Patient: Greater than 30
--- NOTE | 2023-11-30 14:17 | P.PN ---
Subjective Patient seen and evaluated at bedside. Doing better. No acute events overnight. Objective - Vital Signs Vital signs: Vital Signs Temp 97.8 F 11/30/23 12:00 Pulse 70 11/30/23 13:00 Resp 28 H 11/30/23 13:00 BP 137/71 11/30/23 07:00 Pulse Ox 99 11/30/23 13:00 FiO2 50 11/30/23 13:00 Intake & Output 11/29/23 11/30/23 11/30/23 18:59 06:59 18:59 Intake Total 6835.966 6796.125 577.744 Output Total 785 2325 670 Balance 233.306 -412.875 -92.256 Weight 90.2 kg 116.1 kg Intake: IV 600 1165 535 0.9 KVO 230 240 70 Meropenem 1 gm In Sodium 100 100 Chloride 0.9% 100 ml @ 33 .333 mls/hr IVPB Q12HR [facility] Rx#:[id number] Mvi, Adult No.4 with Vit 825 450 K 10 ml Trace (Conc-1Ml/ Dose) 1 ml Sodium Acetate 30 meq Potassium Acetate 10 meq Calcium Gluconate 1 gm In Amino Acids 5 %/ Dextrose 20 % 1,000 ml @ 75 mls/hr IV .BY DURATION [facility] Rx#:[id number] Mvi, Adult No.4 with Vit 195 K 10 ml Trace (Conc-1Ml/ Dose) 1 ml Sodium Acetate 40 meq Potassium Acetate 20 meq Calcium Gluconate 1.5 gm Magnesium Sulfate gm 0.5 gm In Amino Acids 5 %/Dextrose 20 % 1,000 ml @ 40 mls/hr IV .Q24H [facility] Rx#:[id number] Normal Saline Pressure 15 Saline Sodium Chloride 0.9% 1, 75 000 ml @ 75 mls/hr IV . [id number] [facility] Rx#:[id number] Intake, IV Titration 147.306 247.125 42.744 Amount Vasopressin 20 unit In 49.802 47.125 Sodium Chloride 0.9% 50 ml @ 0.03 UNITS/MIN 4.59 mls/hr IV .Q11H7M [facility] Rx# :[id number] propofoL 1,000 mg In 97.504 200.000 42.744 Empty Bag 1 bag @ 20 MCG/ KG/MIN 9.36 mls/hr IV . [id number] [facility] Rx#:[id number] Blood Product 271 Rc Pheresis As-3 Unit 271 [id number] Hemodialysis 500 Output: Gastric Drainage 25 Drainage 475 310 280 Left Abdomen 75 110 180 Right Abdomen 400 200 100 Urine 285 515 390 Hemodialysis 1000 Hemodialysis Net Amount 500 Other: Voiding Method Indwelling Catheter Indwelling Catheter ABP, PAP, CO, CI - Last Documented Arterial Blood Pressure 161/60 - Exam gen: nad cv: rrr pul: non labored breathing on vent abd: soft, distended, non tender to palpation, j tube in place with stool output, cate drain demonstrating serosang output. - Labs CBC & Chem 7: 11/30/23 05:13 11/30/23 05:13 Labs: Abnormal Lab Results - Last 24 Hours (Table) 11/29/23 11/29/23 11/30/23 Range/Units 15:35 17:50 01:32 WBC (3.8-10.6) k/uL RBC (4.30-5.90) m/uL Hgb (13.0-17.5) gm/dL Hct (39.0-53.0) % RDW (11.5-15.5) % Plt Count (150-450) k/uL ABG O2 Saturation (94-97) % Hemoglobin (13.0-17.5) gm/dL Sodium (137-145) mmol/L Carbon Dioxide (22-30) mmol/L BUN (9-20) mg/dL Creatinine (0.66-1.25) mg/dL Glucose (74-99) mg/dL POC Glucose (mg/dL) 278 H 276 H (70-110) mg/dL Calcium (8.4-10.2) mg/dL Ionized Calcium Krystal (4.5-5.3) mg/dL Total Protein (6.3-8.2) g/dL Albumin (3.5-5.0) g/dL Crossmatch See Detail 11/30/23 11/30/23 11/30/23 Range/Units 05:06 05:13 05:13 WBC 10.8 H (3.8-10.6) k/uL RBC 2.75 L (4.30-5.90) m/uL Hgb 8.1 L (13.0-17.5) gm/dL Hct 24.2 L (39.0-53.0) % RDW 19.8 H (11.5-15.5) % Plt Count 41 L (150-450) k/uL ABG O2 Saturation 97.5 H (94-97) % Hemoglobin 8.2 L (13.0-17.5) gm/dL Sodium 133 L (137-145) mmol/L Carbon Dioxide 21 L (22-30) mmol/L BUN 93 H (9-20) mg/dL Creatinine 3.61 H (0.66-1.25) mg/dL Glucose 273 H (74-99) mg/dL POC Glucose (mg/dL) (70-110) mg/dL Calcium 7.0 L (8.4-10.2) mg/dL Ionized Calcium Krystal (4.5-5.3) mg/dL Total Protein 4.7 L (6.3-8.2) g/dL Albumin 2.1 L (3.5-5.0) g/dL Crossmatch 11/30/23 11/30/23 11/30/23 Range/Units 05:13 06:47 12:02 WBC (3.8-10.6) k/uL RBC (4.30-5.90) m/uL Hgb (13.0-17.5) gm/dL Hct (39.0-53.0) % RDW (11.5-15.5) % Plt Count (150-450) k/uL ABG O2 Saturation (94-97) % Hemoglobin (13.0-17.5) gm/dL Sodium (137-145) mmol/L Carbon Dioxide (22-30) mmol/L BUN (9-20) mg/dL Creatinine (0.66-1.25) mg/dL Glucose (74-99) mg/dL POC Glucose (mg/dL) 315 H 195 H (70-110) mg/dL Calcium (8.4-10.2) mg/dL Ionized Calcium Krystal 4.0 L (4.5-5.3) mg/dL Total Protein (6.3-8.2) g/dL Albumin (3.5-5.0) g/dL Crossmatch Microbiology - Last 24 Hours (Table) 11/26/23 12:22 Blood Culture - Preliminary Blood Assessment and Plan Assessment: 73-year-old male with 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 Status post J-tube placement and required revision to dependent drainage. I believe ileus will resolve. Awaiting blood cultures. Continue IV antibiotics. Continue ICU care. Time with Patient: Less than 30
--- NOTE | 2023-11-30 14:48 | P.PN ---
Progress Note - Text Progress Note Date: 11/30/23 Chief Complaint: Aspirated This is a 73-year-old patient, follows with Dr. Patricia Deal. Patient was seen this morning in the ICU. Patient's and daughter at the bedside. History obtained predominantly by the . Patient been having trouble with his stomach symptoms for close to 8 months. Patient underwent EGD by Dr. Sahara Cheng yesterday. Patient was found to have ulcerated around the antrum and obstruction to the pylorus. A lot of retained food was found. Patient aspirated. Had to be intubated and brought to the ICU. On a Levophed drip. FiO2 50 and a PEEP of 6. Patient had been losing weight lost about 25 pounds. Previously has a history of mitral valve prolapse. November 13: ICU. Patient remains on Precedex drip and propofol drip. Did not do well attempted extubation yesterday. Patient been off Levophed. NG tube to suction. Spoke to patient's and son at the bedside. Biopsy results awaited. Hemoglobin dropped to 6.9 this morning. Get a unit of blood. November 14: ICU. Up in a chair. Extubated yesterday. NG tube to suction. at the bedside. 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 Oncology was consulted. They have ordered a port. Results discussed with Dr. Sahara Cheng. General surgery was consulted for J-tube placement. Discussed with at the bedside. Patient getting IV fluids, IV Zosyn,. Patient has been on IV amiodarone for A-fib-back in sinus rhythm. Multiple PACs. Did receive unit of blood yesterday. Also IV ferric gluconate. November 15: ICU. Patient earlier today underwent jejunostomy tube placement and a port placement. Patient awake. Answering questions. NG tube to suction present. Updated patient's . Patient remains on IV amiodarone and IV Zosyn. November 16: ICU. Up in the chair. NG tube present but not to suction. Trickle feeding through the jejunostomy tube should be started today. Dietitian has been on board. IV Zosyn to continue. Patient's and his sister at the bedside. Discussed. Also spoke with Dr. Serna. Given patient has no other predisposing cardiac factors for the A-fib except acute illness. His LV function is normal. Left atrium is normal. He has already been loaded with IV amiodarone. Will switch him to oral Lopressor 12.5 twice daily. Hence will DC amiodarone. Patient yesterday had wheezing was put on bronchodilators steroids per pulmonary. November 17: Propped up in bed. NG tube was discontinued. Sinus rhythm. Remains NPO. Getting G-tube feeding at 40 cc an hour. Dietitian following. Get arrangements done for DC home tomorrow including tube feeding. Increase activity discussed with patient and elder daughter at the bedside. Still requiring oxygen. Incentive spirometry. November 18: Patient up in recliner. Earlier today spoke to social media senior associate David. Informed patient is rather weak and will be going to the [facility]. Looking at authorization. Denae came to the room and spoke to patient his and his daughter. They are very keen to take the patient home as 3 daughters all nurses and they will take care of him at home. Patient earlier today to abdominal cramping and some loose stools.'s tube feeding was held. Told the nurse to start back at the rate of 40 cc an hour. He was before the getting it at 55 cc an hour. Incentive spirometry was again emphasized. Patient remains on 4 L of oxygen. November 19: I saw the patient this morning. Hence I am in the evening. Morning was sitting with his sons. Has some edema. Lungs had crackles I gave him 40 mg of Lasix. He did make good urine. Tube feeding was held from the previous evening of because of abdominal cramping. Acute abdominal series showed nonspecific bowel gas pattern and SBO to be ruled out. Family and patient was updated. Told him discharge will depend on day by day. Later this afternoon CT scanAnd abdomen pelvis done. Showed small bowel to be 3 point centimeter dilated. Some anasarca. Gastric findings. Gallstones. Later spoke to Dr. Irby from general surgery. They will further review and decide about further plan of action. Will give further dose of IV Lasix because of fluid overload from likely hypoalbuminemia and IV fluids previously received. Patient may take his pills by mouth. Total time spent today about 1 hour with over 40 minutes of discussion. Patient did state his breathing is better after Lasix this morning. November 20: Saw the patient this morning. was present. Patient received 2 more doses of Lasix. Diuresed well. Breathing much better. Lungs are sounding better. Discussed with Dr. Zepeda other surgeon. He is taking 3 cc out of the balloon and the gastrostomy tube. Started trickle feeding at 5 cc an hour. Will see how this does. Later in the day ran into the and the daughter again. Did update them on the same. Dilaudid was discontinued yesterday but morphine was ordered by surgery for patient having pain. Concerns about GI issues with that we will DC the morphine. As family does not want the same. November 21: Patient reclining bed. Tired. Several family members at the bedside. Including his and eldest daughter. Patient started on trickle feed yesterday at 5 cc an hour. This morning he has been on 10 cc an hour. Still having some loose stools. C. difficile was ordered. Patient on 2 L of nasal cannula. Has diuresed well. Will give an additional dose of Lasix today. If C. difficile is negative and the diarrhea is from the tube feedings we may have to use a fecal management system to keep him comfortable. Otherwise patient remains NPO. Dietitian is following the patient. Care was discussed length with patient the and daughter at the bedside. Questions answered. Liquid Tylenol has been added for abdominal pain. Avoid narcotics. Elevated white count likely from Solu-Medrol 11/23/2023--patient was feeling better today. Multiple family member at bedside. No issues overnight. Normal saline at 10 cc an hour, tube feeding at 20 cc an hour, remains on Zosyn, on 3 L oxygen. Afebrile. Heart rate 62, respiratory rate 16, blood pressure 114/67, saturating 91% on 3 L. WBCs 14.5, 9.7 hemoglobin. Platelet 242. BMP is unremarkable. Pulmonary and general surgery following. General surgery recommended to continue tube feeds at 20 cc/h. 11/24/2023--patient reported significant abdominal discomfort, also noted to have leak around G-tube. General surgery is following, evaluated the patient at bedside, adjusted tube feeds. Also reported having diarrhea, on 2 L oxygen, went up to 5 L. Blood pressure was low, 500 mL fluid bolus with close monitoring of respiratory status ordered. Currently on DuoNebs, Solu-Medrol, will continue Zosyn. Chest x-ray showed a left lower lobe infiltrate. Abdominal x-ray showed multiple air-fluid levels. CT abdomen showed multiple dilated small bowel loops, consistent with obstruction, pneumoperitoneum, cholelithiasis and ascites. WBCs 14.1, platelet 255, hemoglobin 8.9. NG tube in place. Family at bedside. patient transferred to SICU for close monitoring. 11/25/23--patient is currently in the ICU, required Levophed overnight due to low blood pressure, low urine output with creatinine trending up. Nephrology following. Title Curator also following. Patient remains n.p.o., NG tube in place, following NG tube insertion patient had total of 2 L output, J-tube was draining approximately 200 cc over last 8 hours, continues to have abdominal pain and abdominal tenderness. Patient on IV fluids. Currently on 4 L oxygen. WBCs 8.2, hemoglobin 12.3, platelet 188. Chest x-ray earlier today showed right sided port and a stable left lung airspace disease, NG tube in place. Patient currently on Zosyn, on IV Dilaudid for pain control, on IV Solu-Medrol. General surgery planning for OR today, started on TPN. 11/26/23--patient was seen and examined today. Patient is currently sedated, intubated on mechanical ventilation. Family at bedside. Patient underwent ex lap, abdominal washout, small bowel resection with new feeding jejunostomy tube placement yesterday, small bowel was noted to be perforated with significant contamination of abdominal cavity. Patient is currently on vancomycin and Zosyn. Creatinine went up to 2.85, nephrology following, recommended to continue IV fluids, avoid nephrotoxin Preserved EF on echocardiogram.. Patient currently on Levophed, vasopressin in the ICU for close monitoring. Patient is afebrile, heart rate 122, blood pressure 129/76, currently on mechanical ventilation, sedated. November 26: ICU. Intubated. FiO2 60 and a PEEP of 5. Drips include IV amiodarone. Heart rate was up early did get fired microgram of IV digoxin and 2.5 mg of IV Lopressor. Did drop her blood pressure bit. Urine output was low. Received 80 mg of IV Lasix. Ahmet to 150 cc. Other drips include IV propofol, vasopressin, Levophed. TPN was started yesterday. Antibiotics include IV Zosyn and vancomycin. Patient has a J-tube to drainage to gravity. Spoke to patient's younger daughter and at the bedside. Prognosis guarded. Continue current treatment plan. Chest x-ray shows right lower lobe consolidation. Small pleural effusion. November 27: ICU. Intubated. FiO2 55 and a PEEP of 5. Antibiotics include IV vancomycin. Drips include Levophed at a small dose, IV vasopressin, propofol, amiodarone. Patient converted to sinus rhythm this morning. Getting TPN and normal saline at 75 cc an hour. Urine output about 25 cc an hour. 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 NG tube with bilious output. And also GI J-tube output to gravity. Spoke to patient's and daughter at the bedside. They understand patient still not out of the kee. Platelets have dropped-therefore probably Zosyn stopped. November 28: ICU. Intubated. FiO2 55 and a PEEP of 5. Patient is in sinus rhythm. Seen this morning. Due for dialysis catheter this afternoon. Urine output about 15 to 20 cc an hour. Patient is on IV Lasix 80 mg every 12. Saline is KVO. Drips include IV propofol vasopressin. Patient having significant output through the RAYA drain and the jejunostomy tube to drainage. Creatinine had been getting worse. Patient's at the bedside. Understands patient's remains critically ill. Hemoglobin is down to 7. Given that patient's pain hypotensive, and on vasopressin we will give a unit of blood with dialysis. Getting TPN antibiotic changed to IV meropenem November 29: ICU. Intubated. FiO2 55 and a PEEP of 5. Remains in sinus rhythm. Getting TPN. Dialyzed yesterday and this morning. About 1000 cc removed. Urine output about 50 cc an hour. Patient is on IV propofol. Off vasopressin. Still having significant output through the RAYA drain and jejunostomy tube. Patient received a second unit of blood yesterday. Patient's and daughter at the bedside. I did discuss guarded prognosis. Did asked them to revisit CODE STATUS.. Getting IV meropenem. Active Medications Acetaminophen (Acetaminophen Tab 325 Mg Tab) 650 mg PO Q4HR PRN PRN Reason: Fever and/ or Pain Last Admin: 11/22/23 08:46 Dose: 650 mg Acetaminophen (Acetaminophen Oral Susp (Peds) 3,840 Mg/120 Ml Bottle) 480 mg PO Q4HR PRN PRN Reason: Fever Hydrocodone Bitart/Acetaminophen (Hydrocodone/Apap 5-325mg 1 Each Tab) 1 each PO Q4HR PRN PRN Reason: Pain Last Admin: 11/25/23 08:03 Dose: 1 each Albuterol/Ipratropium (Ipratropium-Albuterol 3 Ml Neb) 3 ml INHALATION RT-QID NIRMAL Last Admin: 11/30/23 11:04 Dose: 3 ml Albuterol/Ipratropium (Ipratropium-Albuterol 3 Ml Neb) 3 ml INHALATION RT-Q2H PRN PRN Reason: Shortness Of Breath Or Wheezing Last Admin: 11/30/23 03:43 Dose: 3 ml Chlorhexidine Gluconate (Chlorhexidine Gluconate 15 Ml Cup) 15 ml MUCOUS MEM BID NIRMAL Last Admin: 11/30/23 12:13 Dose: 15 ml Dextrose/Water (Dextrose 50% Syringe 50 Ml) 25 ml IVP PER PROTOCOL PRN; Protocol PRN Reason: Hypoglycemia Dextrose/Water (Dextrose 50% Syringe 50 Ml) 50 ml IVP PER PROTOCOL PRN; Protocol PRN Reason: Hypoglycemia Furosemide (Furosemide 10 Mg/Ml 10 Ml Vial) 80 mg IV Q12H NIRMAL Last Admin: 11/30/23 06:54 Dose: 80 mg Hydromorphone HCl (Hydromorphone 1 Mg/Ml 1 Ml Syringe) 1 mg IVP Q3HR PRN PRN Reason: Pain Last Admin: 11/30/23 05:43 Dose: 1 mg Propofol 1,000 mg/ IV Solution 100 mls @ 9.36 mls/hr IV .[id number] [facility]; Protocol Last Admin: 11/30/23 07:49 Dose: 40 mcg/kg/min, 18.72 mls/hr Vasopressin 20 unit/ Sodium (Chloride) 51 mls @ 4.59 mls/hr IV .[id number] [facility]; Protocol Last Admin: 11/30/23 13:53 Dose: Not Given Norepinephrine Bitartrate 32 (mg/ Sodium Chloride) 250 mls @ 1.097 mls/hr IV .Q24H [facility]; Protocol Last Admin: 11/30/23 10:00 Dose: Not Given Sodium Chloride (Saline 0.9%) 1,000 mls @ 20 mls/hr IV .Q24H [facility] Last Admin: 11/29/23 16:23 Dose: Not Given Parenteral Vitamin Supplement 10 ml/ Zinc/Copper/Manganese/Selenium 1 ml/ Sodium Acetate 40 meq/ Potassium Acetate 10 meq/ Calcium Gluconate 1.5 gm/Magnesium Sulfate 0.25 gm/Amino Acids/Dextrose 1,051.5 mls @ 75 mls/hr IV .BY DURATION [facility] Last Admin: 11/30/23 10:59 Dose: 75 mls/hr Sodium Acetate 40 meq/Potassium Acetate 10 meq/Calcium Gluconate 1.5 gm/Magnesium Sulfate 0.25 gm/Amino Acids/Dextrose 1,040.5 mls @ 75 mls/hr IV .BY DURATION [facility] Meropenem 1 gm/ Sodium (Chloride) 100 mls @ 33.333 mls/hr IVPB HS [facility] Insulin Aspart (Insulin Aspart (Novolog) 100 Unit/Ml Vial) 0 unit SQ 0000,0600,1200,1800 [facility]; Protocol Last Admin: 11/30/23 12:12 Dose: 2 unit Insulin Detemir (Insulin Detemir (Levemir) 100 Unit/Ml Syr) 24 unit SQ DAILY@0 700 [facility] Lidocaine HCl (Lidocaine 1% (10mg/Ml) For Iv Start) 0.1 ml INTRADERMA PER PROTOCOL PRN PRN Reason: IV Start Stop: 12/12/23 05:39 Methylprednisolone Sodium Succinate (Methylprednisolone Sod Succi 40 Mg/Ml 1 Ml Vial) 40 mg IV DAILY@1800 NIRM[facility] Metoprolol Tartrate (Metoprolol Tartrate 5 Mg/5 Ml Vial) 2.5 mg IVP Q6HR PRN PRN Reason: Heart Rate - HIGH Last Admin: 11/27/23 08:25 Dose: 2.5 mg Miscellaneous Information (Magnesium Replacement Protocol 1 Each Misc) 1 each MISCELLANE DAILY PRN; Protocol PRN Reason: Per Protocol Morphine Sulfate (Morphine Sulfate 2 Mg/Ml Syringe) 1 mg IVP Q4HR PRN PRN Reason: Pain Control Last Admin: 11/26/23 15:26 Dose: 1 mg Morphine Sulfate (Morphine Sulfate 2 Mg/Ml Syringe) 2 mg IVP Q4HR PRN PRN Reason: Pain/Discomfort Last Admin: 11/26/23 09:35 Dose: 2 mg Naloxone HCl (Naloxone 0.4 Mg/Ml 1 Ml Vial) 0.2 mg IV Q2M PRN PRN Reason: Opioid Reversal Pantoprazole Sodium (Pantoprazole 40 Mg/10 Ml Vial) 40 mg IVP BID NIRMAL Last Admin: 11/30/23 10:55 Dose: 40 mg Past medical history to include: GERD Social history: . No smoking. Physical examination: VITAL SIGNS: 97.8, 68, 28, 140/53, 100% on 50% high to GENERAL: Sedated, right chest wall port EYES: Pupils equal. Conjunctiva edouard l. HEENT: External appearance of nose and ears normal, oral cavity-endotracheal tube. NECK: JVD unable to assess; masses not palpable. HEART: First and second heart sounds are normal; edema, present LUNGS: Respiratory rate increased, decreased breath sounds ABDOMEN: Soft, nontender, liver spleen not palpable, no masses pa lpable..jejunostomy tube-attached to gravity. RAYA drain. Incision with stitches PSYCH: Sedated INVESTIGATIONS, reviewed in the clinical context: November 29: White count 10.8 hemoglobin 8.1 platelets 41 potassium 4.3 BUN 93 creatinine 3.61 November 28: White count 8.1 hemoglobin 7 platelets 32 sodium 140 potassium 4.4 BUN 106 creatinine 5.38 albumin 1.9 November 27: White 11.2 hemoglobin 7.9 platelets 46 potassium 4.3 BUN 93 creatinine 4.81 November 26: White count 13 hemoglobin 9.4 platelets sodium 140 potassium 4.4 BUN 83 creatinine 3.71 calcium 6.1 albumin 2.1 November 20: White count 14.4 hemoglobin 8.8 platelets 229 potassium 4.1 BUN [address] scan abdomen [November 19] possible small bowel obstruction Stool: C. difficile negative November 16: White count 9.1 hemoglobin 7.9 platelets 259 potassium 4.3 creatinine 0.92 November 15: WBC 13 hemoglobin 7.7 platelets 248 potassium 4.3 creatinine 0.87 2D echo: EF 55 to 60%. November 14: White count 10.7 hemoglobin 7.5 platelets 239 potassium 4.2 creatinine 0.96 Kidneys bladder: Unremarkable November 13: White count 12 hemoglobin 6.9 platelets 276 potassium 4.4 creatinine 1.21 magnesium 1.8 iron 6 TIBC 365% saturation 1.64 transferrin 261 ferritin 34.6 B12 569 folate 4.4 November 12: White count 14 hemoglobin 7.6 platelets 333 sodium 136 BUN 26 creatinine 1.57 November 11: Creatinine 0.86 EGD: Large amount of retained solid liquid food noted in the stomach. Large superficial gastric antral ulceration involving most of the antrum extending into the pylorus causing pyloric stenosis. Biopsies were obtained. Chest x-ray film personally reviewed by me-scattered infiltrates Assessment plan: -Aspiration pneumonitis bilateral from retained gastric contents mostly food and liquids, causing acute hypoxic respiratory failure: IV Zosyn-changed to IV meropenem Pulmonary following -Acute pulmonary edema and fluid overload from hypoalbuminemic state and fluids from IV.: Better -Small l bowel perforation at site of jejunostomy tube tip with balloon..: Portion of small bowel resected. On November 24. New J-tube was placed.- drainage to gravity: Having significant output N.p.o. -Acute kidney injury. Possible ATN from hypotensive shock: Worsening Renal ultrasound unremarkable. Started on renal replacement therapy on November 28. Followed by nephrology -Nutrition Jejunostomy tube placed November [address] Ewing Getting TPN. -Acute recurrent atrial fibrillation-converted to sinus rhythm IV amiodarone. Cardiology following Lopressor -Acute hypoxic respiratory failure from aspiration pneumonia, status post ventilator assisted: Reintubated November 25. FiO2 50 PEEP of 5 -Normocytic anemia likely to secondary underlying lymphoma. Also anemia of blood draw. Iron deficiency anemia Received 2 unit of blood. IV iron. - -Severe thrombocytopenia. Would consider coagulation disorder secondary to infection., In the setting of underlying lymphoma.: Slow to respond Zosyn stopped Hematology following. -Acute blood loss anemia, Received 2 units of blood -GERD PPI -Acute diarrhea secondary to tube feeding.: Resolved C. difficile ruled out. -Large superficial gastric antral ulceration involving the gastric antrum extending into the pylorus with gastric outlet obstruction. 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 Port placed. For outpatient PET scan. -Full code Discussed with patient's and daughter at the bedside. Prognosis guarded. Did asked them to review revisit CODE STATUS. Past Medical History Past Medical History: GERD/Reflux History of Any Multi-Drug Resistant Organisms: None Reported Past Surgical History: Heart Catheterization Additional Past Surgical History / Comment(s): colonsocopy,spinal injection, Past Anesthesia/Blood Transfusion Reactions: No Reported Reaction Past Psychological History: No Psychological Hx Reported Smoking Status: Never smoker Past Alcohol Use History: None Reported Past Drug Use History: None Reported
[2023-11-30] MEDS: methylPREDNISolone SOD SUCCI 40 MG/ML 1 ML VIAL IV SCH (19:19)
[2023-11-30 19:20] LABS: Glucose,Whole Blood 177 mg/dL (70-110)
[2023-11-30] MEDS: MEROPENEM 1 GM in SODIUM CHLORIDE 0.9% 100 ML IVPB SCH (20:28)
[2023-11-30 23:49] LABS: Glucose,Whole Blood 216 mg/dL (70-110)
[2023-12-01 05:08] LABS: ABG Base Excess 2.5 mmol/L; ABG HCO3 26 mmol/L (21-25); ABG Oxygen Saturation 99.7 % (94-97); ABG PCO2 34 mmHg (35-45); ABG PH 7.49 (7.35-7.45); ABG PO2 121 mmHg (83-108); ABG TCO2 27 mmol/L (19-24); Allen Test Performed? Yes
[2023-12-01 05:30] LABS: HCT 25.5 % (39.0-53.0); HGB 8.1 gm/dL (13.0-17.5); Hypochromasia Moderate; MCH 27.8 pg (25.0-35.0); MCHC 31.9 g/dL (31.0-37.0); MCV 86.9 fL (80.0-100.0); Mean Platelet Volume 13.1; RBC 2.93 m/uL (4.30-5.90); RDW 19.6 % (11.5-15.5); WBC 11.4 k/uL (3.8-10.6)
[2023-12-01 05:31] LABS: Anisocytosis Slight
[2023-12-01 05:41] LABS: Platelet Count 46 k/uL (150-450)
[2023-12-01 05:51] LABS: ALT 16 U/L (4-49); AST 30 U/L (17-59); African American GFR (CKD) 18 (>60 ml/min/1.73 sqM); Albumin 1.9 g/dL (3.5-5.0); Alkaline Phosphatase 80 U/L (38-126); Anion Gap 6 mmol/L; Blood Urea Nitrogen 84 mg/dL (9-20); Calcium 7.1 mg/dL (8.4-10.2); Carbon Dioxide 24 mmol/L (22-30); Chloride 101 mmol/L (98-107); Glucose 228 mg/dL (74-99); Magnesium 1.9 mg/dL (1.6-2.3); Non-African American GFR(CKD) 16 (>60 ml/min/1.73 sqM); Phosphorus 4.1 mg/dL (2.5-4.5); Potassium 3.7 mmol/L (3.5-5.1); Sodium 131 mmol/L (137-145); Total Bilirubin 0.7 mg/dL (0.2-1.3); Total Protein 4.4 g/dL (6.3-8.2)
[2023-12-01 06:18] LABS: Glucose,Whole Blood 272 mg/dL (70-110)
--- NOTE | 2023-12-01 06:29 | XR ---
EXAMINATION TYPE: XR chest 1V portable DATE OF EXAM: 12/01/2023 COMPARISON: 11/30/2023 HISTORY: Tube placement TECHNIQUE: Single frontal view of the chest is obtained. FINDINGS: The ET tube is 4.6 cm above the josseline. The NG tube has been partially withdrawn in the interval and is now in the distal esophagus. The tip of the left-sided PICC line is in the SVC/RA junction. There is a Mediport catheter on the right with the tip in the right atrium. No pneumothorax There is no change in the by basilar opacities likely combination of pleural fluid and atelectasis. P neumonia not excluded. IMPRESSION: 1. ET tube 4.6 cm above the josseline. 2. NG tube tip is now in the distal esophagus. 3. No change in the acute cardiopulmonary disease. [facility], , 12/01/2023 6:26 AM
[2023-12-01] MEDS: INSULIN DETEMIR (LEVEMIR) 100 UNIT/ML SYR SQ SCH (06:32)
--- NOTE | 2023-12-01 10:31 | P.PN ---
Subjective Patient is seen in follow-up for acute kidney injury. Patient underwent exploratory laparotomy with small bowel obstruction NG tube replacement Sep tem2023. Off vasopressors. Intubated. Receiving TPN. Nonoliguric. Started on hemodialysis November 29, 2023. Last treatment was yesterday. Vital signs stable. Off vasopressors. General: Resting in bed. HEENT: Intubated. LUNGS: Scattered rhonchi. HEART: Irregular rate and rhythm. ABDOMEN: Abdominal dressing noted. No drainage. EXTREMITITES: 1+ edema. Objective - Vital Signs Vital signs: Vital Signs Temp 97.8 F 12/01/23 08:00 Pulse 72 12/01/23 10:00 Resp 21 12/01/23 10:00 BP 146/75 12/01/23 10:00 Pulse Ox 97 12/01/23 10:00 FiO2 40 12/01/23 07:27 Intake & Output 11/30/23 12/01/23 12/01/23 18:59 06:59 18:59 Intake Total 8625.060 4033.700 272.985 Output Total 3875 885 300 Balance -2245.256 460.700 -27.015 Weight 116.9 kg Intake: IV 987 1156 189 0.9 KVO 110 120 30 Meropenem 1 gm In Sodium 100 100 Chloride 0.9% 100 ml @ 33 .333 mls/hr IVPB Q12HR [facility] Rx#:[id number] Mvi, Adult No.4 with Vit 750 900 150 K 10 ml Trace (Conc-1Ml/ Dose) 1 ml Sodium Acetate 30 meq Potassium Acetate 10 meq Calcium Gluconate 1 gm In Amino Acids 5 %/ Dextrose 20 % 1,000 ml @ 75 mls/hr IV .BY DURATION [facility] Rx#:[id number] Normal Saline Pressure 27 36 9 Saline Intake, IV Titration 142.744 189.700 83.985 Amount Sodium Chloride 0.9% 1, 60 000 ml @ 20 mls/hr IV . Q24H [facility] Rx#:[id number] propofoL 1,000 mg In 142.744 189.700 23.985 Empty Bag 1 bag @ 20 MCG/ KG/MIN 9.36 mls/hr IV . [id number] [facility] Rx#:[id number] Hemodialysis 500 Output: Gastric Drainage 100 Drainage 465 200 0 Left Abdomen 225 10 0 Right Abdomen 240 190 0 Urine 810 685 300 Hemodialysis 1500 Hemodialysis Net Amount 1000 Other: Voiding Method Indwelling Catheter Indwelling Catheter ABP, PAP, CO, CI - Last Documented Arterial Blood Pressure 149/63 - Labs CBC & Chem 7: 12/01/23 05:10 12/01/23 05:10 Labs: Abnormal Lab Results - Last 24 Hours (Table) 11/30/23 11/30/23 11/30/23 Range/Units 12:02 19:18 23:47 WBC (3.8-10.6) k/uL RBC (4.30-5.90) m/uL Hgb (13.0-17.5) gm/dL Hct (39.0-53.0) % RDW (11.5-15.5) % Plt Count (150-450) k/uL ABG pH (7.35-7.45) ABG pCO2 (35-45) mmHg ABG pO2 (83-108) mmHg ABG HCO3 (21-25) mmol/L ABG Total CO2 (19-24) mmol/L ABG O2 Saturation (94-97) % Hemoglobin (13.0-17.5) gm/dL Sodium (137-145) mmol/L BUN (9-20) mg/dL Creatinine (0.66-1.25) mg/dL Glucose (74-99) mg/dL POC Glucose (mg/dL) 195 H 177 H 216 H (70-110) mg/dL Calcium (8.4-10.2) mg/dL Total Protein (6.3-8.2) g/dL Albumin (3.5-5.0) g/dL 12/01/23 12/01/23 12/01/23 Range/Units 05:04 05:10 05:10 WBC 11.4 H (3.8-10.6) k/uL RBC 2.93 L (4.30-5.90) m/uL Hgb 8.1 L (13.0-17.5) gm/dL Hct 25.5 L (39.0-53.0) % RDW 19.6 H (11.5-15.5) % Plt Count 46 L (150-450) k/uL ABG pH 7.49 H (7.35-7.45) ABG pCO2 34 L (35-45) mmHg ABG pO2 121 H (83-108) mmHg ABG HCO3 26 H (21-25) mmol/L ABG Total CO2 27 H (19-24) mmol/L ABG O2 Saturation 99.7 H (94-97) % Hemoglobin 8.3 L (13.0-17.5) gm/dL Sodium 131 L (137-145) mmol/L BUN 84 H (9-20) mg/dL Creatinine 3.61 H (0.66-1.25) mg/dL Glucose 228 H (74-99) mg/dL POC Glucose (mg/dL) (70-110) mg/dL Calcium 7.1 L (8.4-10.2) mg/dL Total Protein 4.4 L (6.3-8.2) g/dL Albumin 1.9 L (3.5-5.0) g/dL 12/01/23 Range/Units 06:16 WBC (3.8-10.6) k/uL RBC (4.30-5.90) m/uL Hgb (13.0-17.5) gm/dL Hct (39.0-53.0) % RDW (11.5-15.5) % Plt Count (150-450) k/uL ABG pH (7.35-7.45) ABG pCO2 (35-45) mmHg ABG pO2 (83-108) mmHg ABG HCO3 (21-25) mmol/L ABG Total CO2 (19-24) mmol/L ABG O2 Saturation (94-97) % Hemoglobin (13.0-17.5) gm/dL Sodium (137-145) mmol/L BUN (9-20) mg/dL Creatinine (0.66-1.25) mg/dL Glucose (74-99) mg/dL POC Glucose (mg/dL) 272 H (70-110) mg/dL Calcium (8.4-10.2) mg/dL Total Protein (6.3-8.2) g/dL Albumin (3.5-5.0) g/dL Assessment and Plan Plan: Assessment: 1. Acute kidney injury secondary to ATN secondary to septic shock. Creatinine 0.86 on admission and up to 5.38 dated November 29, 2023. Urine output im proved, now nonoliguric. UA fairly benign. No hydronephrosis noted on imaging. 2. Perforated small bowel status post exploratory laparotomy with abdominal washout, small bowel resection and J-tube replacement November 25, 2023. 3. A-fib with RVR. s/p amiodarone drip. Also received digoxin this admission. 4. Recently diagnosed gastric B-cell lymphoma. 5. Septic shock. Likely abdominal source. On IV antibiotics. Off vasopressors now. 6. Hypocalcemia secondary to acute kidney injury. Replaced. Improved. 7. Metabolic acidosis secondary to acute kidney injury. Improved. Plan: Hold hemodialysis today. Maintain IV Lasix. Receiving TPN per surgery. Phosphorus level 4.4 dated November 30, 2023. Avoid nephrotoxins. Preserved EF noted on echocardiogram. Wean FiO2. Case discussed at length with patient's family present at bedside. Continue to assess daily for further need for renal replacement therapy. Monitor for renal recovery.
[2023-12-01 11:49] LABS: Glucose,Whole Blood 246 mg/dL (70-110)
--- NOTE | 2023-12-01 12:36 | P.PN ---
Subjective Progress Note Date: 12/01/23 Abdominal pain. This is a 73-year-old white male with history of chronic abdominal pain for the last 8 months has been treated with Protonix 40 mg daily for the last 3 months with no improvement. Patient had a 22 pound weight loss in the last [address] of the abdomen and pelvis 3 weeks ago showed thickening of the antral wall with pathological adenopathy posterior to the stomach suspicious of neoplasm. Today the patient underwent elective upper endoscopy to evaluate further, patient received IV sedation by anesthesia endoscope was inserted into the mouth, esophagus was intubated without any difficulty there was evidence of large amount of liquid and solid food noted in the stomach suggestive of gastric outlet obstruction. Scope could not be advanced through the pylorus, however in the prepyloric area there was a large superficial ulceration identified with multiple biopsies were done from this area. The body cardia and fundus could not adequately visualize because of large amount of retained food in the stomach. Scope was withdrawn back to the stomach and upon careful examination the mucosa of the antrum body and cardia as well as the fundus appeared normal. Procedure was being performed and biopsies were done patient threw up and subsequently became hypoxic there was clearly evidence of witnessed aspiration anesthesia intubated the patient, procedure was terminated, and the patient was transferred to the ICU, this consult was initiated. Patient is now on assist- control rate of 20 tidal volume 500 FiO2 70% PEEP of 10 ABG is pending, earlier ABG showed profound hypoxia patient is on propofol at 50 mcg/kg/min, next ABG is pending. Chest x-ray showed chronic changes without evidence of acute pulmonary disease. Patient was seen and examined today on 11/13/2023, remains in the ICU, intubated mechanically ventilated, on assist-control rate of 20 tidal volume 500 FiO2 50% and PEEP of 10 ABG showed a pO2 of 143 pCO2 47 pH of 7.28 hence PEEP was cut down to 6, and increased rate to 22. Patient is still requiring IV fluid at 100 cc/h/LR. Requiring norepinephrine at 0.08 mcg/kg/min he is also on propofol at 50 mg/kg/min antibiotics arce patient is receiving Zosyn. Chest x-ray is showing worsening infiltrates specially in the left lung. This could be related to aspiration pneumonia. Patient had witnessed aspiration during endoscopy/upper endoscopy.WBC count is 14 hemoglobin 7.6 basic metabolic profile is normal BUN is 26 creatinine 1.57 obviously the patient sustained some acute kidney injury baseline creatinine 0.86 patient had received fluids over the last 24 hours, remains on fluids at 100 cc/h Patient with seen and examined today on 11/14/2023, patient remains in the ICU, intubated and mechanically ventilated. Failed weaning trial yesterday and he became quite agitated and desaturated once he went off propofol. Had to be placed back on assist-control mode of mechanical ventilation and sedation. Today the patient is on assist-control rate of 22 tidal volume 500 FiO2 50% PEEP of 6. ABG showed a pO2 of 123 pCO2 51 pH of 7.32, and I cut down his FiO2 down to 45%, patient is receiving a unit of packed RBCs for hemoglobin of 6.9 today. Patient had an episode of A-fib RVR at 3 AM in the morning, seen by cardiology, and recommended patient goes on amiodarone. Still requiring norepinephrine at 0.05 mg/kg/min, he is on LR at 100 cc/h propofol at 50 mg/kg/min. Remains empirically on Zosyn for aspiration pneumonia. My plan today is transitioning the patient to Precedex, hopefully discontinue propofol, and at least give the patient a decent weaning trial or at least check weaning parameters before we proceed to weaning trial. Chest x-ray continues to show evidence of pneumonia mostly in the left lung and left lower lobe more specifically. Some pulmonary vascular congestion is noted with interstitial edema, small pleural effusion is also noted/left side. WBC count today is 12 hemoglobin 6.9 basic metabolic profile is normal bicarb is 25, BUN is 25 creatinine is improving down to 1.21 from 1.57 yesterday Patient was evaluated today on 11/15/2023, patient remains in the ICU, he was extubated yesterday, and his extubation was relatively uneventful. However the patient continues to have nasogastric tube in place, his pathology report came back showing non-Hodgkin's lymphoma, patient has gastric outlet obstruction, and the recommendation by GI is to consult surgery for a jejunostomy tube which is appropriate. Patient will be seen today by oncology and he will be seen by general surgery. In the meantime patient is comfortable, he is on 5 L nasal cannula he has LR running at 100 cc/h, he is remains on Zosyn for aspiration pneumonia remains on amiodarone which was started by cardiology for atrial fibrillation with RVR, presently in sinus rhythm. Cannot switch him to oral because of the fact that remains n.p.o., patient remains on TPN. WBC count is 10.7 hemoglobin 7.5 electrolytes are normal renal profile is normal, creatinine normalized to 0.96 Patient was evaluated today on 11/16/2023, remains in the ICU, on 5 L nasal cannula remains on amiodarone at 0.5 mg/min remains on LR at 100 cc/h, however his chest x-ray is showing some component of interstitial edema or could be findings related to his recent episode of aspiration/aspiration pneumonia, nonetheless the patient seems to be a bit symptomatic, he has intermittent cough and wheezing, I am recommending Lasix 40 mg IV push, cut down his IV fluid to 50 cc/h, continue Zosyn, patient will be placed on DuoNeb updrafts and on Solu- Medrol. Patient is scheduled to have jejunostomy-tube placement today. WBC count is 13 hemoglobin 7.7 basic metabolic profile is normal and renal profile is normal Patient was evaluated today on 11/17/2023, patient underwent uneventful placement of a jejunostomy tube yesterday, in the ICU on 5 L, patient is relatively stable, not in any distress, patient continues to have nasogastric tube in place although he did have a J-tube placed yesterday. Patient was seen by oncology for his non-Hodgkin's lymphoma involving the gastric outlet. Today's x-ray showed evidence of pneumonia/bilateral interstitial infiltrate/edema patient was given a dose of Lasix, I reminded the patient had an aspiration episode which was significant. And he required intubation mechanical ventilation for a few days.WBC count today is 9.1 hemoglobin 7.9 electrolytes are normal renal profile is normal hence I plan to transfer the patient out of the ICU to a cardiac floor. And hopefully discharge planning in the next 2 days for The patient was seen today November 18, 2023 in follow-up in the intensive care unit. He is currently sitting up in bed. Awake and alert in no acute distress. He is maintaining O2 saturations in the 90s on 5 L/min per nasal cannula. Glucose 177. Remains on DuoNeb inhalations and Solu-Medrol. Antibiotics in the form of Zosyn. He has a J-tube in place. He was initiated on vital AF 1.2 at 10 mL an hour with a goal of 82 mL/h The patient is seen today November 19, 2023 in follow-up in the intensive care unit. He is a regular medical floor overflow patient. He is currently sitting up in a chair. Awake and alert in no acute distress. He is maintaining O2 saturations in the 90s on 5 L/min per nasal cannula. No IV fluids. He denies any worsening shortness of breath, cough or congestion. He is having some issues with diarrhea. He remains on Zosyn. He is receiving vital AF at 55 mL/h with a goal of 82 mL/h. Glucose 161. Solu-Medrol, DuoNeb inhalations. The patient is seen today November 20, 2023 in follow-up on the regular medical floor. He is currently up in a chair at the bedside. Awake and alert in no acute distress. Denies any worsening shortness of breath, cough or congestion. He is maintaining O2 saturation in the 90s on 3 L/min per nasal cannula. He continues on Zosyn. Continues on bronchodilators and steroids. White count 12.3. Hemoglobin 9.0. Platelets 258. Glucose 168. He is not tolerating his tube feeds as he has developed diarrhea. C. difficile screen was negative. Abdominal series revealed cardiomegaly with left basilar acute infiltrate and/or atelectasis. Overall nonspecific bowel gas pattern. A small bowel obstruction needs to be considered. Progress note dated November 21, 2023. The patient is seen in room 517. The patient is currently on 3 L of oxygen. He continues on Zosyn. His biggest complaint has been abdominal discomfort and diarrhea. He did have a CT scan of the abdomen and pelvis. Current laboratory data includes a white count of 14.4, hemoglobin 8.8, hematocrit 28.7, and platelet count 229,000. Sodium 139, potassium 4.1, chlorides 103, CO2 30, BUN 42, creatinine 0.94. Glucose is 158. Calcium is 8.5. Progress note dated November 22, 2023. 73-year-old male seen in room 517. He currently is on 2 L of oxygen. Room air saturation was 89%. Chest CT shows bilateral patchy infiltrates. He continues on Zosyn. He is still not taking anything by mouth. No new laboratory data today other than a glucose of 138. Gram stain was negative. Progress note dated November 23, 2023. 73-year-old male seen in room 517. He is resting comfortably without complaints. He continues on saline at 10 cc an hour, tube feedings with Pivot at 20 cc an hour, Zosyn, and 2 L by nasal cannula. He has had an uneventful night. Laboratory data today includes a white count 14.5, hemoglobin 9.7, hematocrit 31.4, and a platelet count of 242,000. Sodium 138, potassium 3.7, chlorides 106, CO2 26, BUN 39, creatinine 0.95. Glucose is 181. Calcium is 8.5. Sputum sampling was negative. Progress note dated November 24, 2023. 73-year-old male who is seen in room 517. The patient has been having significant abdominal discomfort, and went for a evaluation, ordered by surgery today, to determine whether or not the feeding tube, was in proper position, and whether or not there is anything acutely going on in the abdomen. He had been having diarrhea. He is on 3 L of oxygen. He has been here for 12 days. This is a patient, that had a prior EGD, aspirated, because of gastric outlet obstruction, and was diagnosis of non-Hodgkin's lymphoma. He is currently on Zosyn, DuoNebs, and Solu-Medrol. He has been NPO. Chest x-ray showed a left lower lobe infiltrate. Abdominal x-ray showed multiple air-fluid levels. CT of the abdomen showed multiple dilated small bowel loops, consistent with obstruction, pneumoperitoneum, ascites, and cholelithiasis. White count was 14.1, hemoglobin 8.9, hematocrit 29.5, and platelet count was 255,000. Glucose was 143. 11/25/2023, the patient is being seen in the intensive care unit. The patient is critically ill, n.p.o., he has an NG tube in place. Following the NG tube insertion, there was a total of 2.0 L of output and the patient's J-tube was also draining approximately 200 cc over the past 8 hours. Continues to have abdominal pain which is rather diffuse and the patient has direct abdominal tenderness. CAT scan of the abdomen was noted and was consistent with small bowel obstruction. The patient has a stomach that was inflated and in the same time there were multiple loops of small bowel distended with fluid. This extended to the pelvis. J-tube with contrast nondilated small bowel loops within the mid abdomen. Additional loops of small bowel were seen that was dilated. There was some contrast in the right lower quadrant and contrast was also in the cecum. No transition point was identified. The dilated loops of the bowel appeared to be in the proximal jejunum and distal to the duodenum. General surgery is on the case the patient will be taken to the operating room for another exploratory laparotomy. Noted the CAT scan of the abdomen also showed pneumoperitoneum and small amount of ascites and cholelithiasis. Hemodynamically, the patient is currently on normal saline at rate of 75 cc an hour. He is hypotensive and is going to be started on pressors. He is on 4 L of oxygen by nasal cannula. He also has sustained acute kidney injury. Blood work from today shows a rise in the creatinine which is currently up to 2.5 with a BUN of 57. Serum bicarb is at 14 with an anion gap of 11. The patient WBC count is at 8.2 with a hemoglobin of 12.3 and a platelet count of 188. Chest x- ray from this morning is showing a right-sided port and a stable left lung airspace disease and an NG tube being in place. The patient remains on IV Zosyn. The patient is receiving Dilaudid for pain control. The patient remains on IV Solu-Medrol 60 mg every 6 hours. It was noted that the patient's surgical wound over the port has dehisced and there is some serous drainage and erythema at the incision site. Awake and alert and communicating. Family at the bedside. No apparent signs of respiratory distress at this point. 11/26/2023, the patient is being seen in follow-up. Events from yesterday was noted and the patient was taken to the operating room for exploratory laparotomy. The patient was found to have large amount of free fluid noted in the abdomen and there was significant contamination. There was perforation of the small bowel with the balloon of the previously inserted jejunostomy tube penetrating through the perforation. As such, the tube was removed, abdominal washout was done. Small bowel resection was done and the patient had a nodular jejunostomy tube inserted. Postop, the patient was extubated he was unable to tolerate extubation and the patient was kept intubated on mechanical ventilator and he was brought back to the intensive care unit. He is currently postop day #1 following his small bowel resection. Abdominal surgical wound site is dry clean and intact. This morning, the patient remains sedated on propofol which is currently running at 35 mcg/kg/min. He is on assist-control mode of mechanical ventilation at rate of 28, tidal volume of 550, FiO2 of 60% with a PEEP of 5. Blood gas from today shows a pH of 7.35 with a pCO2 44 and pO2 of 88. Chest x-ray shows adequate positioning of the orotracheal tube. The patient has a Mediport on the right and a subclavian triple-lumen catheter on the left and the patient has persistent bilateral pleural effusion and infiltrates in lung base bilaterally. Hemodynamically, the patient remains in shock. He has been on high-dose norepinephrine which is currently running at 0.28 mcg/kg/min and the patient is also on vasopressin at 0.03 units an hour. He is IV fluids are in the form of bicarb infusion running at rate of 150 cc an hour. He is in sinus tachycardia. NG tube output has been 250 cc over the past 8 hours and the output from the J-tube is minimal at this point in time. Urine output is quite diminished as the patient has also sustained acute kidney injury. Overall fluid balance is +4.9 L over the past 24 hours. The patient's white cell count of 5.7 with a hemoglobin 9.9 and platelet count of 172. BUN is 72 with a creatinine of 2.8 and sodium levels at 143. The calcium level is at 6.5. LFTs are normal. Triglyceride level is at 315. On 11/27/2023, the patient remains critically ill. Remains intubated and on mechanical ventilator, still awaiting shock which is essentially septic shock. Remains on propofol which is running at 50 mcg/kg/min. Remains on the mechanical ventilator, assist-control mode with rate of 28, tidal volume of 550 with an FiO2 of 60% with a PEEP of 5. Blood gas shows a pH of 7.29 with a pCO2 of 47 and pO2 of 78. The patient had a follow-up chest x-ray that showed lower lobe consolidation slightly worse on the right and the orotracheal tube is in a good location. Urine output is diminished in the order of 5 to 10 cc an hour and the patient is also developing progressive worsening renal function. Remains on normal citrate of 150 cc an hour and the patient was started on TPN which is running at 30 cc an hour. He has a triple-lumen catheter in his left subclavian. Overall fluid balance over the past 24 hours is +3.9 L. Output from the NG tube and the J-tube is minimal. Hemodynamically, he is hypotensive and norepinephrine running at 0.45 mcg/kg/min. Vasopressin is a physiologic dose. He received amiodarone and he remains on maintenance amiodarone of 0.5 mg /min and the patient continues to be in atrial fibrillation and is having episodes of tachycardia. The white cell count is at 13, hemoglobin 9.4 platelet count is pending. The patient's BUN is 83 with a creatinine of 3.7. Sodium is at 140 with a potassium level of 5.5 dropped down to 4.4 as the sample was hemolyzed. LFTs are normal. Abdominal wound is dry clean and intact. RAYA drainage is essentially serous at this point in time. 11/28/2023, the patient is being seen for a follow-up. The patient remains intubated on mechanical ventilator. This morning, the patient tolerated propofol drip running at 50 mcg/kg/min. The patient is on mechanical ventilator assist-control mode with rate of 28, tidal volume of 550, FiO2 55% with a PEEP of 5. Chest x-ray shows stable findings with lower lobe consolidations bilaterally. Blood gas shows a pH of 7.32 with a pCO2 38 and pO2 90. Neuropath y has improved and the patient is producing approximately 30 cc an hour and the overall input output balance is +3.3 L over the past 24 hours. The patient is still on pressors although his pressor requirements have improved since yesterday. He is on norepinephrine which is running at 0.05 mcg/kg/min and vasopressin physiologic dose. Also, the patient on amiodarone drip regarding his chronic ongoing atrial fibrillation. Amiodarone drip is running at 0.5 mg/min. Nevertheless, the rate is under much better control. Noted the patient was given a dose of digoxin 0.5 mg IV yesterday which helped with rate control. Remains on normal citrate of 150 cc an hour. Remains on TPN at 40 cc an hour. Output from the J-tube is fecal. Output from the NG tube is more gastric. Surgical wound site is dry clean and intact. Sputum Gram stain and culture showing Pseudomonas and Citrobacter. Note that the Citrobacter was intermediate resistance to Zosyn. This will be discussed further with infectious disease. Blood cultures are still pending for now. They have negative based on the most recent check. Blood work from today shows WBC count 11.2, hemoglobin 7.9 and platelet count of 46. Sodium is at 140, potassium is at 4.3, chloride is 114 with a bicarb of 18. He has 93 and the creatinine is 4.8. Serum random vancomycin level is at 25.7. On 11/29/2023, the patient is being seen for a follow-up. Remains intubated on the mechanical ventilator. The patient sedated on propofol which is running at 35 mcg/kg/min. Synchronous with mechanical ventilator. On today's evaluation, he is on assist-control mode with rate of 28, tidal volume of 550, FiO2 55% with a PEEP of 5. Chest x-ray shows lower lobe consolidation bilaterally worse on the right and the orotracheal tube is in good location. The blood gas showed a pH of 7.34 with a pCO2 of 35 and a pO2 of 84. No significant orotracheal secretions. Hemodynamically improved compared to yesterday. In fact, the patient is on minimal norepinephrine that was discontinued earlier this morning. The patient has converted to normal sinus rhythm. Remains on amiodarone at 0.5 mg/min. Overall fluid balance over the past 24 hours is 2.4 L positive. Urine output has been adequate and the patient is currently on IV Lasix. Neverthel ess, the patient has developed progressive worsening renal function. Creatinine is up to 5.3 on today's evaluation with a potassium level of 4.4. Serum bicarb is at 18 with an anion gap of 9. WBC count is at 8.1 with a hemoglobin of 7 and a platelet count of 32 which has dropped compared to earlier evaluation. The rest of the coagulation profile was normal from 11/28/2023. Fibrinogen level is slightly elevated. Sputum samples have shown a combination of Citrobacter and Pseudomonas aeruginosa. Based on cultures and sensitivities, the patient will be taken off his IV Zosyn and he will be switched to IV meropenem. Output from the J-tube is fecal. Output from the NG tube is gastric and surgical wound site is dry clean and intact. He is afebrile for now. Hemodynamically, the patient is doing better. He remains on TPN for nutritional support. IV fluids are also running at a rate of 75 cc an hour. Remains on vancomycin. 11/22/2023, the patient is being seen for a follow-up. The patient remains on propofol at 50 mcg/kg/min. Ventilator settings are essentially unchanged. The patient remains on assist-control mode with rate of 18, tidal volume of 400, FiO2 50% with a PEEP of 5. The blood gas showed a pH of 7.37 with a pCO2 of 43 and pO2 of 127. Chest x-ray shows no significant interval change. Patient remains on normal saline at rate of 75 cc an hour and TPN at rate of 35 cc an hour. Fluid balance is positive. Hemodialysis was performed yesterday and the second session of hemodialysis to be done today. The patient's urine output is in the order of 20 to 30 cc an hour. The patient has an NG output of 350 cc for yesterday and the drainage from the J-tube is in the order of 400 cc over the past 24 hours. The blood work shows a WBC count of 10.8, hemoglobin 8.1 and platelet count of 41. Platelet counts are essentially stable and slightly improved compared to yesterday. The sodium level is at 133, potassium is at 4.3, BUN is 93 with a creatinine of 3.6. LFTs are within normal limits. Albumin is down to 2.1. The patient is currently on no pressors. N orepinephrine and vasopressin are both discontinued and the patient remains in normal sinus rhythm. No other significant events overnight. Family has been updated on his condition. Antibiotic coverage is currently with IV meropenem. Vancomycin and Zosyn have been both discontinued. On 12/01/2023, the patient remains sedated on propofol which is running at 25 mcg/kg/min., Comfortable and synchronous mechanical ventilator. The patient remains on assist-control mode rate of 28, tidal volume of 550, FiO2 40% and PEEP of 5. Blood gas shows a pH of 7.49 with a pCO2 of 34 and pO2 of 121. Kathryn ent underwent hemodialysis yesterday. No plans for hemodialysis today the patient is producing urine output. Remains on TPN for nutrition support rate of 75 cc an hour. IV fluids are currently at KVO. The chest x-ray from today shows bilateral lower lobe consolidation worse on the right. No significant change in the volume status. The patient continues to have third spacing and edema in all 4 extremities. Nevertheless, urine output is adequate at this point in time and the patient remains on Lasix 80 mg IV every 12 hours. Remains NPO. NG tube and J-tube are both drainage. Output is noted. Remains on IV meropenem. Afebrile. Currently on no pressors. Blood work shows a WBC count of 11.4, hemoglobin of 8.1 and platelet count of 46. Sodium is at 131, potassium level is at 3.7, chloride 101 and bicarb is at 24. BUN is 84 with a creatinine of 3.6. Glucose of 228. LFTs are within normal limits. Objective - Vital Signs Vital signs: Vital Signs Temp 97.8 F 12/01/23 08:00 Pulse 71 12/01/23 11:06 Resp 20 12/01/23 11:00 BP 153/78 12/01/23 11:00 Pulse Ox 98 12/01/23 11:00 FiO2 40 12/01/23 10:57 Intake & Output 11/30/23 12/01/23 12/01/23 18:59 06:59 18:59 Intake Total 4552.663 1905.700 282.665 Output Total 3875 885 520 Balance -2245.256 460.700 -237.335 Weight 116.9 kg Intake: IV 987 1156 215 0.9 KVO 110 120 50 Meropenem 1 gm In Sodium 100 100 Chloride 0.9% 100 ml @ 33 .333 mls/hr IVPB Q12HR [facility] Rx#:[id number] Mvi, Adult No.4 with Vit 750 900 150 K 10 ml Trace (Conc-1Ml/ Dose) 1 ml Sodium Acetate 30 meq Potassium Acetate 10 meq Calcium Gluconate 1 gm In Amino Acids 5 %/ Dextrose 20 % 1,000 ml @ 75 mls/hr IV .BY DURATION [facility] Rx#:[id number] Normal Saline Pressure 27 36 15 Saline Intake, IV Titration 142.744 189.700 67.665 Amount propofoL 1,000 mg In 142.744 189.700 67.665 Empty Bag 1 bag @ 20 MCG/ KG/MIN 9.36 mls/hr IV . [id number] [facility] Rx#:[id number] Hemodialysis 500 Output: Gastric Drainage 100 Drainage 465 200 100 Left Abdomen 225 10 0 Right Abdomen 240 190 100 Urine 810 685 420 Hemodialysis 1500 Hemodialysis Net Amount 1000 Other: Voiding Method Indwelling Catheter Indwelling Catheter Indwelling Catheter ABP, PAP, CO, CI - Last Documented Arterial Blood Pressure 115/53 - Exam No acute distress, sedated on propofol, comfortable, intubated on the mechanical ventilator. The patient has an orotracheal and orogastric tube in place. HEENT examination is grossly unremarkable. Mucous membranes are moist. No oral lesions. The patient has a triple-lumen catheter in the left subclavian. Neck supple. Full range of motion. No adenopathy thyromegaly or neck vein distention. Cardiac exam revealed the PMI to be normally situated and sized. The rhythm was regular and no extrasystoles were noted during several minutes of auscultation. The first and second heart sounds were normal and physiologic splitting of the second heart sound was noted. There were no murmurs, rubs, clicks, or gallops. The patient is in sinus tachycardia. Lungs reveal mild scattered rhonchi. No wheezes or crackles. Breath sounds equal. Diminished breath sound lung base bilaterally. Abdomen distended without bowel sounds. J-tube is noted. Patient also has an NG tube in place. Mid abdominal wound which is dry clean and intact and the patient has absent bowel sounds. Extremities are intact. No cyanosis clubbing trace edema lower extremities bilaterally Skin is without rash or lesion. The wound at the Mediport site is dry and the area has been sutured Neurologic examination is brief but nonfocal. Currently sedated on propofol. - Labs CBC & Chem 7: 12/01/23 05:10 12/01/23 05:10 Labs: Abnormal Lab Results - Last 24 Hours (Table) 11/30/23 11/30/23 12/01/23 Range/Units 19:18 23:47 05:04 WBC (3.8-10.6) k/uL RBC (4.30-5.90) m/uL Hgb (13.0-17.5) gm/dL Hct (39.0-53.0) % RDW (11.5-15.5) % Plt Count (150-450) k/uL ABG pH 7.49 H (7.35-7.45) ABG pCO2 34 L (35-45) mmHg ABG pO2 121 H (83-108) mmHg ABG HCO3 26 H (21-25) mmol/L ABG Total CO2 27 H (19-24) mmol/L ABG O2 Saturation 99.7 H (94-97) % Hemoglobin 8.3 L (13.0-17.5) gm/dL Sodium (137-145) mmol/L BUN (9-20) mg/dL Creatinine (0.66-1.25) mg/dL Glucose (74-99) mg/dL POC Glucose (mg/dL) 177 H 216 H (70-110) mg/dL Calcium (8.4-10.2) mg/dL Total Protein (6.3-8.2) g/dL Albumin (3.5-5.0) g/dL 12/01/23 12/01/23 12/01/23 Range/Units 05:10 05:10 06:16 WBC 11.4 H (3.8-10.6) k/uL RBC 2.93 L (4.30-5.90) m/uL Hgb 8.1 L (13.0-17.5) gm/dL Hct 25.5 L (39.0-53.0) % RDW 19.6 H (11.5-15.5) % Plt Count 46 L (150-450) k/uL ABG pH (7.35-7.45) ABG pCO2 (35-45) mmHg ABG pO2 (83-108) mmHg ABG HCO3 (21-25) mmol/L ABG Total CO2 (19-24) mmol/L ABG O2 Saturation (94-97) % Hemoglobin (13.0-17.5) gm/dL Sodium 131 L (137-145) mmol/L BUN 84 H (9-20) mg/dL Creatinine 3.61 H (0.66-1.25) mg/dL Glucose 228 H (74-99) mg/dL POC Glucose (mg/dL) 272 H (70-110) mg/dL Calcium 7.1 L (8.4-10.2) mg/dL Total Protein 4.4 L (6.3-8.2) g/dL Albumin 1.9 L (3.5-5.0) g/dL 12/01/23 Range/Units 11:48 WBC (3.8-10.6) k/uL RBC (4.30-5.90) m/uL Hgb (13.0-17.5) gm/dL Hct (39.0-53.0) % RDW (11.5-15.5) % Plt Count (150-450) k/uL ABG pH (7.35-7.45) ABG pCO2 (35-45) mmHg ABG pO2 (83-108) mmHg ABG HCO3 (21-25) mmol/L ABG Total CO2 (19-24) mmol/L ABG O2 Saturation (94-97) % Hemoglobin (13.0-17.5) gm/dL Sodium (137-145) mmol/L BUN (9-20) mg/dL Creatinine (0.66-1.25) mg/dL Glucose (74-99) mg/dL POC Glucose (mg/dL) 246 H (70-110) mg/dL Calcium (8.4-10.2) mg/dL Total Protein (6.3-8.2) g/dL Albumin (3.5-5.0) g/dL Assessment and Plan Plan: Acute hypoxic respiratory failure and the patient failed extubation following exploratory laparotomy. The patient chest x-ray from today shows lower lobe consolidation slightly worse on the right. The sputum culture showing a combination of Citrobacter and Pseudomonas aeruginosa. Consider hospital-acquir ed pneumonia, and the patient remains there is currently on IV meropenem. No interval worsening in oxygenation. Chest x-ray was noted. Blood gas was noted. 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 Patient also has a J-tube in place. Both of the tubes are connected to suction and the patient continues to have abdominal pain with ongoing concern of a small bowel obstruction and the patient scheduled to undergo elective nephrectomy today. Small bowel perforation with abdominal contamination. The patient is status post expiratory laparotomy and small bowel resection and insertion of another jejunostomy tube. The patient is postop day # 6 Peritonitis secondary to above Septic shock secondary to above, the patient is currently off pressors Atrial fibrillation with rapid medical response, currently back into normal sinus rhythm m Acute kidney injury, secondary to above. Currently on IV Lasix and the patient has undergone 2 sessions of hemodialysis last 1 being yesterday on 11/30/2023. Acute hypoxic respiratory failure requiring intubation mechanical ventilation secondary to aspiration during EGD on 11/12/2023. Patient was extubated on 11/14/2023. The patient was reintubated on 11/25/2023 following his abdominal surgery. Acute aspiration during upper endoscopy most likely secondary to gastric outlet obstruction secondary to non-Hodgkin's lymphoma. weight loss most likely secondary non-Hodgkin's lymphoma involving the stomach. Thrombocytopenia, likely consumptive. Drug-induced thrombocytopenia cannot be completely ruled out. No evidence of any acute bleeding at this point. Hemoglobin is stable. Platelet count is also stable, slightly improved compared to yesterday. Anemia of chronic disease, multifactorial. Plan: Continue ventilator support, will drop respiratory rate down to 20. There is a component of respiratory alkalosis in the patient's blood gases from today. Keep the patient sedated on propofol and titrated dose for adequate sedation and will give a sedation holiday Keep the patient n.p.o. Keep the NG tube to suction as well as the J-tube, discussed output with a general surgeon TPN for nutritional support Change IV fluids to KVO Antibiotic coverage with IV meropenem Monitor platelet count, improving Continue Lasix 80 mg IV every 12 hours Hemodialysis today Patient is currently off pressors and the patient is currently normal sinus rhythm. Avoid nephrotoxic agents We will continue to follow. Condition is critical. Had a lengthy discussion with the family at the bedside. General surgery is on the case. Oncology on the case. This evaluation was done more than 30 minutes. Time with Patient: Greater than 30
--- NOTE | 2023-12-01 13:49 | P.PN ---
Subjective patient seen and evaluated at bedside. patient doing better no acute events overnight. Objective - Vital Signs Vital signs: Vital Signs Temp 97.9 F 12/01/23 12:00 Pulse 65 12/01/23 13:00 Resp 20 12/01/23 13:00 BP 99/54 12/01/23 13:00 Pulse Ox 99 12/01/23 13:00 FiO2 40 12/01/23 12:00 Intake & Output 11/30/23 12/01/23 12/01/23 18:59 06:59 18:59 Intake Total 2400.406 3909.700 291.089 Output Total 3875 885 520 Balance -2245.256 460.700 -228.911 Weight 116.9 kg Intake: IV 987 1156 215 0.9 KVO 110 120 50 Meropenem 1 gm In Sodium 100 100 Chloride 0.9% 100 ml @ 33 .333 mls/hr IVPB Q12HR [facility] Rx#:[id number] Mvi, Adult No.4 with Vit 750 900 150 K 10 ml Trace (Conc-1Ml/ Dose) 1 ml Sodium Acetate 30 meq Potassium Acetate 10 meq Calcium Gluconate 1 gm In Amino Acids 5 %/ Dextrose 20 % 1,000 ml @ 75 mls/hr IV .BY DURATION [facility] Rx#:[id number] Normal Saline Pressure 27 36 15 Saline Intake, IV Titration 142.744 189.700 76.089 Amount propofoL 1,000 mg In 142.744 189.700 76.089 Empty Bag 1 bag @ 20 MCG/ KG/MIN 9.36 mls/hr IV . [id number] [facility] Rx#:[id number] Hemodialysis 500 Output: Gastric Drainage 100 Drainage 465 200 100 Left Abdomen 225 10 0 Right Abdomen 240 190 100 Urine 810 685 420 Hemodialysis 1500 Hemodialysis Net Amount 1000 Other: Voiding Method Indwelling Catheter Indwelling Catheter Indwelling Catheter ABP, PAP, CO, CI - Last Documented Arterial Blood Pressure 123/57 - Exam general no acute distress Cardiovascular regular rate and rhythm Pulmonary nonlabored breathingon the ventilator Abdomen is soft, nondistended, surgical incisions clean dry and intact RAYA drain serosanguineous, J-tube minimal stool output - Labs CBC & Chem 7: 12/01/23 05:10 12/01/23 05:10 Labs: Abnormal Lab Results - Last 24 Hours (Table) 09/11/30/23 12/01/23 Range/Units 19:18 23:47 05:04 WBC (3.8-10.6) k/uL RBC (4.30-5.90) m/uL Hgb (13.0-17.5) gm/dL Hct (39.0-53.0) % RDW (11.5-15.5) % Plt Count (150-450) k/uL ABG pH 7.49 H (7.35-7.45) ABG pCO2 34 L (35-45) mmHg ABG pO2 121 H (83-108) mmHg ABG HCO3 26 H (21-25) mmol/L ABG Total CO2 27 H (19-24) mmol/L ABG O2 Saturation 99.7 H (94-97) % Hemoglobin 8.3 L (13.0-17.5) gm/dL Sodium (137-145) mmol/L BUN (9-20) mg/dL Creatinine (0.66-1.25) mg/dL Glucose (74-99) mg/dL POC Glucose (mg/dL) 177 H 216 H (70-110) mg/dL Calcium (8.4-10.2) mg/dL Total Protein (6.3-8.2) g/dL Albumin (3.5-5.0) g/dL 12/01/23 12/01/23 12/01/23 Range/Units 05:10 05:10 06:16 WBC 11.4 H (3.8-10.6) k/uL RBC 2.93 L (4.30-5.90) m/uL Hgb 8.1 L (13.0-17.5) gm/dL Hct 25.5 L (39.0-53.0) % RDW 19.6 H (11.5-15.5) % Plt Count 46 L (150-450) k/uL ABG pH (7.35-7.45) ABG pCO2 (35-45) mmHg ABG pO2 (83-108) mmHg ABG HCO3 (21-25) mmol/L ABG Total CO2 (19-24) mmol/L ABG O2 Saturation (94-97) % Hemoglobin (13.0-17.5) gm/dL Sodium 131 L (137-145) mmol/L BUN 84 H (9-20) mg/dL Creatinine 3.61 H (0.66-1.25) mg/dL Glucose 228 H (74-99) mg/dL POC Glucose (mg/dL) 272 H (70-110) mg/dL Calcium 7.1 L (8.4-10.2) mg/dL Total Protein 4.4 L (6.3-8.2) g/dL Albumin 1.9 L (3.5-5.0) g/dL 12/01/23 Range/Units 11:48 WBC (3.8-10.6) k/uL RBC (4.30-5.90) m/uL Hgb (13.0-17.5) gm/dL Hct (39.0-53.0) % RDW (11.5-15.5) % Plt Count (150-450) k/uL ABG pH (7.35-7.45) ABG pCO2 (35-45) mmHg ABG pO2 (83-108) mmHg ABG HCO3 (21-25) mmol/L ABG Total CO2 (19-24) mmol/L ABG O2 Saturation (94-97) % Hemoglobin (13.0-17.5) gm/dL Sodium (137-145) mmol/L BUN (9-20) mg/dL Creatinine (0.66-1.25) mg/dL Glucose (74-99) mg/dL POC Glucose (mg/dL) 246 H (70-110) mg/dL Calcium (8.4-10.2) mg/dL Total Protein (6.3-8.2) g/dL Albumin (3.5-5.0) g/dL Assessment and Plan Assessment: 73-year-old male with 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 Status post J-tube placement and required revision to dependent drainage. I believe ileus will resolve. Continue ICU care. Time with Patient: Less than 30
[2023-12-01 17:39] LABS: Glucose,Whole Blood 194 mg/dL (70-110)
--- NOTE | 2023-12-01 20:06 | P.PN ---
Progress Note - Text Progress Note Date: 12/01/23 Chief Complaint: Aspirated This is a 73-year-old patient, follows with Dr. Patricia Deal. Patient was seen this morning in the ICU. Patient's and daughter at the bedside. History obtained predominantly by the . Patient been having trouble with his stomach symptoms for close to 8 months. Patient underwent EGD by Dr. Sahara Cheng yesterday. Patient was found to have ulcerated around the antrum and obstruction to the pylorus. A lot of retained food was found. Patient aspirated. Had to be intubated and brought to the ICU. On a Levophed drip. FiO2 50 and a PEEP of 6. Patient had been losing weight lost about 25 pounds. Previously has a history of mitral valve prolapse. November 13: ICU. Patient remains on Precedex drip and propofol drip. Did not do well attempted extubation yesterday. Patient been off Levophed. NG tube to suction. Spoke to patient's and son at the bedside. Biopsy results awaited. Hemoglobin dropped to 6.9 this morning. Get a unit of blood. November 14: ICU. Up in a chair. Extubated yesterday. NG tube to suction. at the bedside. 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 Oncology was consulted. They have ordered a port. Results discussed with Dr. Sahara Cheng. General surgery was consulted for J-tube placement. Discussed with at the bedside. Patient getting IV fluids, IV Zosyn,. Patient has been on IV amiodarone for A-fib-back in sinus rhythm. Multiple PACs. Did receive unit of blood yesterday. Also IV ferric gluconate. November 15: ICU. Patient earlier today underwent jejunostomy tube placement and a port placement. Patient awake. Answering questions. NG tube to suction present. Updated patient's . Patient remains on IV amiodarone and IV Zosyn. November 16: ICU. Up in the chair. NG tube present but not to suction. Trickle feeding through the jejunostomy tube should be started today. Dietitian has been on board. IV Zosyn to continue. Patient's and his sister at the bedside. Discussed. Also spoke with Dr. Serna. Given patient has no other predisposing cardiac factors for the A-fib except acute illness. His LV function is normal. Left atrium is normal. He has already been loaded with IV amiodarone. Will switch him to oral Lopressor 12.5 twice daily. Hence will DC amiodarone. Patient yesterday had wheezing was put on bronchodilators steroids per pulmonary. November 17: Propped up in bed. NG tube was discontinued. Sinus rhythm. Remains NPO. Getting G-tube feeding at 40 cc an hour. Dietitian following. Get arrangements done for DC home tomorrow including tube feeding. Increase activity discussed with patient and elder daughter at the bedside. Still requiring oxygen. Incentive spirometry. November 18: Patient up in recliner. Earlier today spoke to social work case manager David. Informed patient is rather weak and will be going to the [facility]. Looking at authorization. Denae came to the room and spoke to patient his and his daughter. They are very keen to take the patient home as 3 daughters all nurses and they will take care of him at home. Patient earlier today to abdominal cramping and some loose stools.'s tube feeding was held. Told the nurse to start back at the rate of 40 cc an hour. He was before the getting it at 55 cc an hour. Incentive spirometry was again emphasized. Patient remains on 4 L of oxygen. November 19: I saw the patient this morning. Hence I am in the evening. Morning was sitting with his sons. Has some edema. Lungs had crackles I gave him 40 mg of Lasix. He did make good urine. Tube feeding was held from the previous evening of because of abdominal cramping. Acute abdominal series showed nonspecific bowel gas pattern and SBO to be ruled out. Family and patient was updated. Told him discharge will depend on day by day. Later this afternoon CT scanAnd abdomen pelvis done. Showed small bowel to be 3 point centimeter dilated. Some anasarca. Gastric findings. Gallstones. Later spoke to Dr. Irby from general surgery. They will further review and decide about further plan of action. Will give further dose of IV Lasix because of fluid overload from likely hypoalbuminemia and IV fluids previously received. Patient may take his pills by mouth. Total time spent today about 1 hour with over 40 minutes of discussion. Patient did state his breathing is better after Lasix this morning. November 20: Saw the patient this morning. was present. Patient received 2 more doses of Lasix. Diuresed well. Breathing much better. Lungs are sounding better. Discussed with Dr. Zepeda other surgeon. He is taking 3 cc out of the balloon and the gastrostomy tube. Started trickle feeding at 5 cc an hour. Will see how this does. Later in the day ran into the and the daughter again. Did update them on the same. Dilaudid was discontinued yesterday but morphine was ordered by surgery for patient having pain. Concerns about GI issues with that we will DC the morphine. As family does not want the same. November 21: Patient reclining bed. Tired. Several family members at the bedside. Including his and eldest daughter. Patient started on trickle feed yesterday at 5 cc an hour. This morning he has been on 10 cc an hour. Still having some loose stools. C. difficile was ordered. Patient on 2 L of nasal cannula. Has diuresed well. Will give an additional dose of Lasix today. If C. difficile is negative and the diarrhea is from the tube feedings we may have to use a fecal management system to keep him comfortable. Otherwise patient remains NPO. Dietitian is following the patient. Care was discussed length with patient the and daughter at the bedside. Questions answered. Liquid Tylenol has been added for abdominal pain. Avoid narcotics. Elevated white count likely from Solu-Medrol 11/23/2023--patient was feeling better today. Multiple family member at bedside. No issues overnight. Normal saline at 10 cc an hour, tube feeding at 20 cc an hour, remains on Zosyn, on 3 L oxygen. Afebrile. Heart rate 62, respiratory rate 16, blood pressure 114/67, saturating 91% on 3 L. WBCs 14.5, 9.7 hemoglobin. Platelet 242. BMP is unremarkable. Pulmonary and general surgery following. General surgery recommended to continue tube feeds at 20 cc/h. 11/24/2023--patient reported significant abdominal discomfort, also noted to have leak around G-tube. General surgery is following, evaluated the patient at bedside, adjusted tube feeds. Also reported having diarrhea, on 2 L oxygen, went up to 5 L. Blood pressure was low, 500 mL fluid bolus with close monitoring of respiratory status ordered. Currently on DuoNebs, Solu-Medrol, will continue Zosyn. Chest x-ray showed a left lower lobe infiltrate. Abdominal x-ray showed multiple air-fluid levels. CT abdomen showed multiple dilated small bowel loops, consistent with obstruction, pneumoperitoneum, cholelithiasis and ascites. WBCs 14.1, platelet 255, hemoglobin 8.9. NG tube in place. Family at bedside. patient transferred to SICU for close monitoring. 11/25/23--patient is currently in the ICU, required Levophed overnight due to low blood pressure, low urine output with creatinine trending up. Nephrology following. Accounts Payable Analyst also following. Patient remains n.p.o., NG tube in place, following NG tube insertion patient had total of 2 L output, J-tube was draining approximately 200 cc over last 8 hours, continues to have abdominal pain and abdominal tenderness. Patient on IV fluids. Currently on 4 L oxygen. WBCs 8.2, hemoglobin 12.3, platelet 188. Chest x-ray earlier today showed right sided port and a stable left lung airspace disease, NG tube in place. Patient currently on Zosyn, on IV Dilaudid for pain control, on IV Solu-Medrol. General surgery planning for OR today, started on TPN. 11/26/23--patient was seen and examined today. Patient is currently sedated, intubated on mechanical ventilation. Family at bedside. Patient underwent ex lap, abdominal washout, small bowel resection with new feeding jejunostomy tube placement yesterday, small bowel was noted to be perforated with significant contamination of abdominal cavity. Patient is currently on vancomycin and Zosyn. Creatinine went up to 2.85, nephrology following, recommended to continue IV fluids, avoid nephrotoxin Preserved EF on echocardiogram.. Patient currently on Levophed, vasopressin in the ICU for close monitoring. Patient is afebrile, heart rate 122, blood pressure 129/76, currently on mechanical ventilation, sedated. November 26: ICU. Intubated. FiO2 60 and a PEEP of 5. Drips include IV amiodarone. Heart rate was up early did get fired microgram of IV digoxin and 2.5 mg of IV Lopressor. Did drop her blood pressure bit. Urine output was low. Received 80 mg of IV Lasix. Ahmet to 150 cc. Other drips include IV propofol, vasopressin, Levophed. TPN was started yesterday. Antibiotics include IV Zosyn and vancomycin. Patient has a J-tube to drainage to gravity. Spoke to patient's younger daughter and at the bedside. Prognosis guarded. Continue current treatment plan. Chest x-ray shows right lower lobe consolidation. Small pleural effusion. November 27: ICU. Intubated. FiO2 55 and a PEEP of 5. Antibiotics include IV vancomycin. Drips include Levophed at a small dose, IV vasopressin, propofol, amiodarone. Patient converted to sinus rhythm this morning. Getting TPN and normal saline at 75 cc an hour. Urine output about 25 cc an hour. RAYA drain put out about 260 cc last 12 hours that is last date night caregiver. NG tube with bilious output. And also GI J-tube output to gravity. Spoke to patient's and daughter at the bedside. They understand patient still not out of the kee. Platelets have dropped-therefore probably Zosyn stopped. November 28: ICU. Intubated. FiO2 55 and a PEEP of 5. Patient is in sinus rhythm. Seen this morning. Due for dialysis catheter this afternoon. Urine output about 15 to 20 cc an hour. Patient is on IV Lasix 80 mg every 12. Saline is KVO. Drips include IV propofol vasopressin. Patient having significant output through the RAYA drain and the jejunostomy tube to drainage. Creatinine had been getting worse. Patient's at the bedside. Understands patient's remains critically ill. Hemoglobin is down to 7. Given that patient's pain hypotensive, and on vasopressin we will give a unit of blood with dialysis. Getting TPN antibiotic changed to IV meropenem November 29: ICU. Intubated. FiO2 55 and a PEEP of 5. Remains in sinus rhythm. Getting TPN. Dialyzed yesterday and this morning. About 1000 cc removed. Urine output about 50 cc an hour. Patient is on IV propofol. Off vasopressin. Still having significant output through the RAYA drain and jejunostomy tube. Patient received a second unit of blood yesterday. Patient's and daughter at the bedside. I did discuss guarded prognosis. Did asked them to revisit CODE STATUS.. Getting IV meropenem. November 30: ICU. Intubated. Did get a sedation holiday t today. Back on propofol. Getting TPN. Still getting IV Lasix. Fair urine output. Jejunostomy tube in last 8 hours was about 30 cc output. RAYA drain in the 8 hours had about 180 cc output. Telemetry shows sinus rhythm. NG tube has low intermittent suction with negative output. On the vent with FiO2 40 and a PEEP of 5. No hemodialysis today. Discussed with the and eldest daughter at the bedside. IV meropenem-patient's sputum had grown Citrobacter freundii and Pseudomonas aeruginosa. Active Medications Acetaminophen (Acetaminophen Tab 325 Mg Tab) 650 mg PO Q4HR PRN PRN Reason: Fever and/ or Pain Last Admin: 11/22/23 08:46 Dose: 650 mg Acetaminophen (Acetaminophen Oral Susp (Peds) 3,840 Mg/120 Ml Bottle) 480 mg PO Q4HR PRN PRN Reason: Fever Hydrocodone Bitart/Acetaminophen (Hydrocodone/Apap 5-325mg 1 Each Tab) 1 each PO Q4HR PRN PRN Reason: Pain Last Admin: 11/25/23 08:03 Dose: 1 each Albuterol/Ipratropium (Ipratropium-Albuterol 3 Ml Neb) 3 ml INHALATION RT-QID NIRMAL Last Admin: 12/01/23 20:00 Dose: 3 ml Albuterol/Ipratropium (Ipratropium-Albuterol 3 Ml Neb) 3 ml INHALATION RT-Q2H PRN PRN Reason: Shortness Of Breath Or Wheezing Last Admin: 11/30/23 03:43 Dose: 3 ml Chlorhexidine Gluconate (Chlorhexidine Gluconate 15 Ml Cup) 15 ml MUCOUS MEM BID [facility] Last Admin: 12/01/23 09:04 Dose: 15 ml Dextrose/Water (Dextrose 50% Syringe 50 Ml) 25 ml IVP PER PROTOCOL PRN; Protocol PRN Reason: Hypoglycemia Dextrose/Water (Dextrose 50% Syringe 50 Ml) 50 ml IVP PER PROTOCOL PRN; Protocol PRN Reason: Hypoglycemia Furosemide (Furosemide 10 Mg/Ml 10 Ml Vial) 80 mg IV Q12H NIRMAL Last Admin: 12/01/23 18:00 Dose: 80 mg Hydromorphone HCl (Hydromorphone 1 Mg/Ml 1 Ml Syringe) 1 mg IVP Q3HR PRN PRN Reason: Pain Last Admin: 12/01/23 09:50 Dose: 1 mg Propofol 1,000 mg/ IV Solution 100 mls @ 9.36 mls/hr IV .[id number] NIRMAL; Protocol Last Admin: 12/01/23 18:00 Dose: 40 mcg/kg/min, 18.72 mls/hr Vasopressin 20 unit/ Sodium (Chloride) 51 mls @ 4.59 mls/hr IV .[id number] [facility]; Protocol Last Admin: 12/01/23 09:02 Dose: Not Given Norepinephrine Bitartrate 32 (mg/ Sodium Chloride) 250 mls @ 1.097 mls/hr IV .Q24H [facility]; Protocol Last Admin: 12/01/23 09:02 Dose: Not Given Sodium Chloride (Saline 0.9%) 1,000 mls @ 20 mls/hr IV .Q24H [facility] Last Admin: 12/01/23 14:54 Dose: Not Given Meropenem 1 gm/ Sodium (Chloride) 100 mls @ 33.333 mls/hr IVPB HS [facility] Last Admin: 11/30/23 20:28 Dose: 33.333 mls/hr Parenteral Vitamin Supplement 10 ml/ Zinc/Copper/Manganese/Selenium 1 ml/ Sodium Acetate 60 meq/ Potassium Chloride 14 meq/ Calcium Gluconate 1.5 gm/Magnesium Sulfate 0.25 gm/Amino Acids/Dextrose 1,063.5 mls @ 75 mls/hr IV .BY DURATION [facility] Last Admin: 12/01/23 14:53 Dose: 75 mls/hr Sodium Acetate 60 meq/Potassium Chloride 14 meq/Calcium Gluconate 1.5 gm/Magnesium Sulfate 0.25 gm/Amino Acids/Dextrose 1,052.5 mls @ 75 mls/hr IV .BY DURATION [facility] Insulin Aspart (Insulin Aspart (Novolog) 100 Unit/Ml Vial) 0 unit SQ 0000,0600,1200,1800 [facility]; Protocol Last Admin: 12/01/23 18:01 Dose: 2 unit Insulin Detemir (Insulin Detemir (Levemir) 100 Unit/Ml Syr) 24 unit SQ DAILY@0700 [facility] Last Admin: 12/01/23 06:32 Dose: 24 unit Lidocaine HCl (Lidocaine 1% (10mg/Ml) For Iv Start) 0.1 ml INTRADERMA PER PROTOCOL PRN PRN Reason: IV Start Stop: 12/12/23 05:39 Methylprednisolone Sodium Succinate (Methylprednisolone Sod Succi 40 Mg/Ml 1 Ml Vial) 40 mg IV DAILY@1800 [facility] Last Admin: 12/01/23 18:01 Dose: 40 mg Metoprolol Tartrate (Metoprolol Tartrate 5 Mg/5 Ml Vial) 2.5 mg IVP Q6HR PRN PRN Reason: Heart Rate - HIGH Last Admin: 11/27/23 08:25 Dose: 2.5 mg Miscellaneous Information (Magnesium Replacement Protocol 1 Each Misc) 1 each MISCELLANE DAILY PRN; Protocol PRN Reason: Per Protocol Morphine Sulfate (Morphine Sulfate 2 Mg/Ml Syringe) 1 mg IVP Q4HR PRN PRN Reason: Pain Control Last Admin: 12/01/23 16:12 Dose: 1 mg Morphine Sulfate (Morphine Sulfate 2 Mg/Ml Syringe) 2 mg IVP Q4HR PRN PRN Reason: Pain/Discomfort Last Admin: 11/26/23 09:35 Dose: 2 mg Naloxone HCl (Naloxone 0.4 Mg/Ml 1 Ml Vial) 0.2 mg IV Q2M PRN PRN Reason: Opioid Reversal Pantoprazole Sodium (Pantoprazole 40 Mg/10 Ml Vial) 40 mg IVP BID NIRMAL Last Admin: 12/01/23 09:04 Dose: 40 mg Past medical history to include: GERD Social history: . No smoking. Physical examination: VITAL SIGNS: 98.4, 79, 25, 131 x 72, 96% on ventilator 40% GENERAL: Sedated, right chest wall port EYES: Pupils equal. Conjunctiva edouard l. HEENT: External appearance of nose and ears normal, oral cavity-endotracheal tube. NG tube-low intermittent suction NECK: JVD unable to assess; masses not palpable. HEART: First and second heart sounds are normal; edema, present LUNGS: Respiratory rate increased, decreased breath sounds ABDOMEN: Soft, nontender, liver spleen not palpable, no masses palpable..jejunostomy tube-attached to gravity. RAYA drain. Incision with stitches PSYCH: Sedated INVESTIGATIONS, reviewed in the clinical context: November 30: White count 11.4 hemoglobin 8.1 platelets 46 sodium 131 potassium 3.7 BUN 84 creatinine 3.61 albumin 1.9 Sputum culture: [November 25]: Citrobacter freundii. Pseudomonas aeruginosa November 29: White count 10.8 hemoglobin 8.1 platelets 41 potassium 4.3 BUN 93 creatinine 3.61 November 28: White count 8.1 hemoglobin 7 platelets 32 sodium 140 potassium 4.4 BUN 106 creatinine 5.38 albumin 1.9 November 27: White 11.2 hemoglobin 7.9 platelets 46 potassium 4.3 BUN 93 creatinine 4.81 November 26: White count 13 hemoglobin 9.4 platelets sodium 140 potassium 4.4 BUN 83 creatinine 3.71 calcium 6.1 albumin 2.1 November 20: White count 14.4 hemoglobin 8.8 platelets 229 potassium 4.1 BUN [address] scan abdomen [November 19] possible small bowel obstruction Stool: C. difficile negative November 16: White count 9.1 hemoglobin 7.9 platelets 259 potassium 4.3 creatinine 0.92 November 15: WBC 13 hemoglobin 7.7 platelets 248 potassium 4.3 creatinine 0.87 2D echo: EF 55 to 60%. November 14: White count 10.7 hemoglobin 7.5 platelets 239 potassium 4.2 creatinine 0.96 Kidneys bladder: Unremarkable November 13: White count 12 hemoglobin 6.9 platelets 276 potassium 4.4 creatinine 1.21 magnesium 1.8 iron 6 TIBC 365% saturation 1.64 transferrin 261 ferritin 34.6 B12 569 folate 4.4 November 12: White count 14 hemoglobin 7.6 platelets 333 sodium 136 BUN 26 creatinine 1.57 November 11: Creatinine 0.86 EGD: Large amount of retained solid liquid food noted in the stomach. Large superficial gastric antral ulceration involving most of the antrum extending into the pylorus causing pyloric stenosis. Biopsies were obtained. Chest x-ray film personally reviewed by me-scattered infiltrates Assessment plan: -Aspiration pneumonitis bilateral from retained gastric contents mostly food and liquids, causing acute hypoxic respiratory failure: Subsequent sputum culture November 25: Citrobacter freundii, Pseudomonas aeruginosa IV meropenem Pulmonary following -Acute pulmonary edema and fluid overload from hypoalbuminemic state and fluids from IV.: -Small l bowel perforation at site of jejunostomy tube tip with balloon..: Portion of small bowel resected. On November 24. New J-tube was placed.- drainage to gravity: t N.p.o. -Acute kidney injury. Possible ATN from hypotensive shock: Worsening Renal ultrasound unremarkable. Started on renal replacement therapy on November 28. Followed by nephrology -Nutrition Jejunostomy tube placed November [address] Ewing Getting TPN. -Acute recurrent atrial fibrillation-converted to sinus rhythm Received IV amiodarone. Cardiology following Lopressor -Acute hypoxic respiratory failure from aspiration pneumonia, status post ventilator assisted: Reintubated November 25. FiO2 50 PEEP of 5 Had sedation holiday today -Normocytic anemia likely to secondary underlying lymphoma. Also anemia of blood draw. Iron deficiency anemia Received 2 unit of blood. IV iron. - -Severe thrombocytopenia. Would consider coagulation disorder secondary to infection., In the setting of underlying lymphoma.: Slow to respond Hematology following. -Acute blood loss anemia, Received 2 units of blood -GERD PPI -Acute diarrhea secondary to tube feeding.: Resolved C. difficile ruled out. -Large superficial gastric antral ulceration involving the gastric antrum extending into the pylorus with gastric outlet obstruction. 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 Port placed. For outpatient PET scan. -Full code Talked with patient's and eldest daughter at the bedside. No dialysis today. Past Medical History Past Medical History: GERD/Reflux History of Any Multi-Drug Resistant Organisms: None Reported Past Surgical History: Heart Catheterization Additional Past Surgical History / Comment(s): colonsocopy,spinal injection, Past Anesthesia/Blood Transfusion Reactions: No Reported Reaction Past Psychological History: No Psychological Hx Reported Smoking Status: Never smoker Past Alcohol Use History: None Reported Past Drug Use History: None Reported
[2023-12-02 00:36] LABS: Glucose,Whole Blood 226 mg/dL (70-110)
[2023-12-02 05:31] LABS: Anisocytosis Slight; Basophils % (A) 0 %; Eosinophils % (A) 0 %; HGB 8.6 gm/dL (13.0-17.5); Hypochromasia Slight; Lymphocytes # (A) 0.5 k/uL (1.0-4.8); Lymphocytes % (A) 5 %; MCH 28.4 pg (25.0-35.0); Monocytes # (A) 0.3 k/uL (0-1.0); Monocytes % (A) 3 %; Neutrophils # (A) 9.4 k/uL (1.3-7.7); Neutrophils % (A) 91 %; RBC 3.02 m/uL (4.30-5.90); RDW 19.7 % (11.5-15.5); WBC 10.3 k/uL (3.8-10.6)
[2023-12-02 05:35] LABS: Platelet Count 74 k/uL (150-450)
[2023-12-02 05:37] LABS: ABG Base Excess 1.1 mmol/L; ABG HCO3 25 mmol/L (21-25); ABG Oxygen Saturation 99.1 % (94-97); ABG PCO2 38 mmHg (35-45); ABG PH 7.43 (7.35-7.45); ABG PO2 111 mmHg (83-108); ABG TCO2 27 mmol/L (19-24); Allen Test Performed? Yes
[2023-12-02 06:03] LABS: ALT 15 U/L (4-49); AST 26 U/L (17-59); African American GFR (CKD) 16 (>60 ml/min/1.73 sqM); Albumin 1.9 g/dL (3.5-5.0); Alkaline Phosphatase 72 U/L (38-126); Anion Gap 8 mmol/L; Calcium 7.3 mg/dL (8.4-10.2); Carbon Dioxide 23 mmol/L (22-30); Chloride 100 mmol/L (98-107); Glucose 248 mg/dL (74-99); Magnesium 1.9 mg/dL (1.6-2.3); Non-African American GFR(CKD) 14 (>60 ml/min/1.73 sqM); Phosphorus 5.1 mg/dL (2.5-4.5); Sodium 131 mmol/L (137-145); Total Bilirubin 0.9 mg/dL (0.2-1.3); Total Protein 4.4 g/dL (6.3-8.2)
[2023-12-02 06:06] LABS: Glucose,Whole Blood 280 mg/dL (70-110)
[2023-12-02 06:24] LABS: Blood Urea Nitrogen 111 mg/dL (9-20)
--- NOTE | 2023-12-02 07:52 | XR ---
EXAMINATION TYPE: XR chest 1V portable DATE OF EXAM: 12/02/2023 COMPARISON: 12/01/2023 HISTORY: SOB, Follow Up FINDINGS: Indwelling tubes and catheters are unchanged. Scattered infiltrates and pulmonary venous congestion. Stable appearance of the cardio-mediastinal structures at this time. Pleural effusion unchanged. IMPRESSION: 1. Stable portable chest. Clinical correlation and follow up until resolution is recommended. [facility], , 12/02/2023 7:49 AM
[2023-12-02] MEDS: CLEVIDIPINE BUTYRATE 25 MG in EMPTY BAG 1 BAG IV SCH (10:09)
--- NOTE | 2023-12-02 11:24 | P.PN ---
Subjective Progress Note Date: 12/02/23 Principal diagnosis: Acute hypoxic respiratory failure requiring intubation mechanical ventilation secondary to aspiration. This is a 73-year-old white male with history of chronic abdominal pain for the last 8 months has been treated with Protonix 40 mg daily for the last 3 months with no improvement. Patient had a 22 pound weight loss in the last [address] of the abdomen and pelvis 3 weeks ago showed thickening of the antral wall with pathological adenopathy posterior to the stomach suspicious of neoplasm. Today the patient underwent elective upper endoscopy to evaluate further, patient received IV sedation by anesthesia endoscope was inserted into the mouth, esop hagus was intubated without any difficulty there was evidence of large amount of liquid and solid food noted in the stomach suggestive of gastric outlet obstruction. Scope could not be advanced through the pylorus, however in the prepyloric area there was a large superficial ulceration identified with multiple biopsies were done from this area. The body cardia and fundus could not adequately visualize because of large amount of retained food in the stomach. Scope was withdrawn back to the stomach and upon careful examination the mucosa of the antrum body and cardia as well as the fundus appeared normal. Procedure was being performed and biopsies were done patient threw up and subsequently became hypoxic there was clearly evidence of witnessed aspiration anesthesia intubated the patient, procedure was terminated, and the patient was transferred to the ICU, this consult was initiated. Patient is now on assist- control rate of 20 tidal volume 500 FiO2 70% PEEP of 10 ABG is pending, earlier ABG showed profound hypoxia patient is on propofol at 50 mcg/kg/min, next ABG is pending. Chest x-ray showed chronic changes without evidence of acute pulmonary disease. Patient was evaluated today on 11/17/2023, patient underwent uneventful placement of a jejunostomy tube yesterday, in the ICU on 5 L, patient is relatively stable, not in any distress, patient continues to have nasogastric tube in place although he did have a J-tube placed yesterday. Patient was seen by oncology for his non-Hodgkin's lymphoma involving the gastric outlet. Today's x-ray showed evidence of pneumonia/bilateral interstitial infiltrate/edema patient was given a dose of Lasix, I reminded the patient had an aspiration episode which was significant. And he required intubation mechanical ventilation for a few days.WBC count today is 9.1 hemoglobin 7.9 electrolytes are normal renal profile is normal hence I plan to transfer the patient out of the ICU to a cardiac floor. And hopefully discharge planning in the next 2 days for On 11/29/2023, the patient is being seen for a follow-up. Remains intubated on the mechanical ventilator. The patient sedated on propofol which is running at 35 mcg/kg/min. Synchronous with mechanical ventilator. On today's evaluation, he is on assist-control mode with rate of 28, tidal volume of 550, FiO2 55% with a PEEP of 5. Chest x-ray shows lower lobe consolidation bilaterally worse on the right and the orotracheal tube is in good location. The blood gas showed a pH of 7.34 with a pCO2 of 35 and a pO2 of 84. No significant orotracheal secretions. Hemodynamically improved compared to yesterday. In fact, the patient is on minimal norepinephrine that was discontinued earlier this morning. The patient has converted to normal sinus rhythm. Remains on amiodarone at 0.5 mg/min. Overall fluid balance over the past 24 hours is 2.4 L positive. Urine output has been adequate and the patient is currently on IV Lasix. Nevertheless, the patient has developed progressive worsening renal function. Creatinine is up to 5.3 on today's evaluation with a potassium level of 4.4. Serum bicarb is at 18 with an anion gap of 9. WBC count is at 8.1 with a hemogl obin of 7 and a platelet count of 32 which has dropped compared to earlier evaluation. The rest of the coagulation profile was normal from 11/28/2023. Fibrinogen level is slightly elevated. Sputum samples have shown a combination of Citrobacter and Pseudomonas aeruginosa. Based on cultures and sensitivities, the patient will be taken off his IV Zosyn and he will be switched to IV meropenem. Output from the J-tube is fecal. Output from the NG tube is gastric and surgical wound site is dry clean and intact. He is afebrile for now. Hemodynamically, the patient is doing better. He remains on TPN for nutritional support. IV fluids are also running at a rate of 75 cc an hour. Remains on vancomycin. 11/22/2023, the patient is being seen for a follow-up. The patient remains on propofol at 50 mcg/kg/min. Ventilator settings are essentially unchanged. The patient remains on assist-control mode with rate of 18, tidal volume of 400, FiO2 50% with a PEEP of 5. The blood gas showed a pH of 7.37 with a pCO2 of 43 and pO2 of 127. Chest x-ray shows no significant interval change. Patient remains on normal saline at rate of 75 cc an hour and TPN at rate of 35 cc an hour. Fluid balance is positive. Hemodialysis was performed yesterday and the second session of hemodialysis to be done today. The patient's urine output is in the order of 20 to 30 cc an hour. The patient has an NG output of 350 cc for yesterday and the drainage from the J-tube is in the order of 400 cc over the past 24 hours. The blood work shows a WBC count of 10.8, hemoglobin 8.1 and platelet count of 41. Platelet counts are essentially stable and slightly improved compared to yesterday. The sodium level is at 133, potassium is at 4.3, BUN is 93 with a creatinine of 3.6. LFTs are within normal limits. Albumin is down to 2.1. The patient is currently on no pressors. Norepinephrine and vasopressin are both discontinued and the patient remains in normal sinus rhythm. No other significant events overnight. Family has been updated on his condition. Antibiotic coverage is currently with IV meropenem. Vancomycin and Zosyn have been both discontinued. On 12/01/2023, the patient remains sedated on propofol which is running at 25 mcg/kg/min., Comfortable and synchronous mechanical ventilator. The patient remains on assist-control mode rate of 28, tidal volume of 550, FiO2 40% and PEEP of 5. Blood gas shows a pH of 7.49 with a pCO2 of 34 and pO2 of 121. Patient underwent hemodialysis yesterday. No plans for hemodialysis today the patient is producing urine output. Remains on TPN for nutrition support rate of 75 cc an hour. IV fluids are currently at KVO. The chest x-ray from today shows bilateral lower lobe consolidation worse on the right. No significant change in the volume status. The patient continues to have third spacing and edema in all 4 extremities. Nevertheless, urine output is adequate at this point in time and the patient remains on Lasix 80 mg IV every 12 hours. Remains NPO. NG tube and J-tube are both drainage. Output is noted. Remains on IV meropenem. Afebrile. Currently on no pressors. Blood work shows a WBC count of 11.4, hemoglobin of 8.1 and platelet count of 46. Sodium is at 131, potassium level is at 3.7, chloride 101 and bicarb is at 24. BUN is 84 with a creatinine of 3.6. Glucose of 228. LFTs are within normal limits. Patient was reevaluated today on 12/02/23, patient remains in the ICU, patient is familiar to my service, I saw this patient 3 weeks ago. Since then he had a very complicated hospital course, related to his jejunostomy tube dislodging and leaking and picture of abdominal sepsis and worsening pneumonia/ARDS. Patient had to be placed back on mechanical ventilation, and he is now intubated and mechanically ventilated. He is on assist-control rate of 20 tidal volume 550 FiO2 40% PEEP of 5 ABG showed a pO2 of 111 pCO2 38 pH of 7.43 and I cut down his FiO2 to 35% and increase his flow rate from 60-70. Patient remains on TPN at 75 cc/h he is on propofol at 25 mcg/kg/min patient is on Cleviprex which I added today for elevated blood pressure. Receiving Lasix 80 mg every 12 hours is also on Merrem as per infectious disease. Patient is on hemodialysis and being followed by nephrology. Patient required multiple abdominal surgeries since his initial admission. Chest x-ray continues to show worsening pneumonia involving both lungs, right more so than left, I suspect there may be a component of ARDS. His initial presentation was the presentation of aspiration pneumonia to begin with and that was 3 weeks agoWBC count is 10.3 hemoglobin 8.6 sodium 131 potassium 4 chloride 100 bicarb 23 BUN is 111 creatinine 4.02 blood sugar is 248. Albumin is 1.9 Objective - Vital Signs Vital signs: Vital Signs Temp 98.2 F 12/02/23 08:00 Pulse 75 12/02/23 11:00 Resp 26 H 12/02/23 11:00 BP 151/84 12/02/23 09:00 Pulse Ox 96 12/02/23 11:00 FiO2 35 12/02/23 09:53 Intake & Output 12/01/23 12/02/23 12/02/23 18:59 06:59 18:59 Intake Total 4819.645 0321.893 311.502 Output Total 1350 1865 615 Balance -68.941 554.893 -303.498 Weight 116.2 kg 116.2 kg Intake: IV 293 1158.999 255 0.9 KVO 110 120 30 Meropenem 1 gm In Sodium 99.999 Chloride 0.9% 100 ml @ 33 .333 mls/hr IVPB Q12HR [facility] Rx#:[id number] Mvi, Adult No.4 with Vit 150 600 K 10 ml Trace (Conc-1Ml/ Dose) 1 ml Sodium Acetate 30 meq Potassium Acetate 10 meq Calcium Gluconate 1 gm In Amino Acids 5 %/ Dextrose 20 % 1,000 ml @ 75 mls/hr IV .BY DURATION [facility] Rx#:[id number] Normal Saline Pressure 33 39 Saline Sodium Acetate 60 meq 300 225 Potassium Chloride 14 meq Calcium Gluconate 1.5 gm Magnesium Sulfate gm 0. 25 gm In Amino Acids 5 %/ Dextrose 20 % 1,000 ml @ 75 mls/hr IV .BY DURATION [facility] Rx#:[id number] Intake, IV Titration 690.126 7637.894 56.502 Amount Clevidipine Butyrate 25 1.200 mg In Empty Bag 1 bag @ 1 MG/HR 2 mls/hr IV .Q24H [facility] Rx#:[id number] Mvi, Adult No.4 with Vit 1010 K 10 ml Trace (Conc-1Ml/ Dose) 1 ml Sodium Acetate 60 meq Potassium Chloride 14 meq Calcium Gluconate 1.5 gm Magnesium Sulfate gm 0.25 gm In Amino Acids 5 %/ Dextrose 20 % 1,000 ml @ 75 mls/hr IV .BY DURATION [facility] Rx#:[id number] Sodium Acetate 60 meq 825 75 Potassium Chloride 14 meq Calcium Gluconate 1.5 gm Magnesium Sulfate gm 0. 25 gm In Amino Acids 5 %/ Dextrose 20 % 1,000 ml @ 75 mls/hr IV .BY DURATION [facility] Rx#:[id number] propofoL 1,000 mg In 163.059 175.894 55.302 Empty Bag 1 bag @ 20 MCG/ KG/MIN 9.36 mls/hr IV . [id number] [facility] Rx#:[id number] Output: Gastric Drainage 100 100 Drainage 390 410 70 Left Abdomen 30 10 Right Abdomen 360 400 70 Urine 860 1355 545 Other: Voiding Method Indwelling Catheter Indwelling Catheter ABP, PAP, CO, CI - Last Documented Arterial Blood Pressure 152/59 - Exam General: Revealed 73-year-old white male intubated, mechanically ventilated, sedated, on propofol orotracheal tube is intact, and nasogastric tube is intact Skin: Skin is warm and dry and no rashes or lesions are noted. Eye: Pupils are equal, round and reactive to light, extra-ocular movements are intact; there is normal conjunctiva bilaterally. Ears, nose, mouth and throat: There are moist mucous membranes and no oral lesions. Neck: The neck is supple, there is no tenderness or JVD. Cardiovascular: There is a regular rate and rhythm. No murmur, rub or gallop is appreciated. Respiratory: Crackles and rhonchi noted bilaterally. Gastrointestinal: J-tube is noted RAYA drain is noted NG tube is in place mild abdominal distention, no rebound, no guarding, no bowel sounds, no significant leak noted from the tubes in the abdomen. Musculoskeletal: No deformities and no limitation range of motion Neurological: Could not assess, patient is sedated, on propofol, will assess mental status today off propofol. Psychiatric: Could not assess. Extremities patient has 3+ bipedal edema. - Labs CBC & Chem 7: 12/02/23 05:14 12/02/23 05:14 Labs: Abnormal Lab Results - Last 24 Hours (Table) 12/01/23 12/01/23 12/02/23 Range/Units 11:48 17:38 00:34 RBC (4.30-5.90) m/uL Hgb (13.0-17.5) gm/dL Hct (39.0-53.0) % RDW (11.5-15.5) % Plt Count (150-450) k/uL Neutrophils # (1.3-7.7) k/uL Lymphocytes # (1.0-4.8) k/uL ABG pO2 (83-108) mmHg ABG Total CO2 (19-24) mmol/L ABG O2 Saturation (94-97) % Sodium (137-145) mmol/L BUN (9-20) mg/dL Creatinine (0.66-1.25) mg/dL Glucose (74-99) mg/dL POC Glucose (mg/dL) 246 H 194 H 226 H (70-110) mg/dL Calcium (8.4-10.2) mg/dL Phosphorus (2.5-4.5) mg/dL Total Protein (6.3-8.2) g/dL Albumin (3.5-5.0) g/dL 12/02/23 12/02/23 12/02/23 Range/Units 05:14 05:14 05:30 RBC 3.02 L (4.30-5.90) m/uL Hgb 8.6 L (13.0-17.5) gm/dL Hct 26.0 L (39.0-53.0) % RDW 19.7 H (11.5-15.5) % Plt Count 74 L D (150-450) k/uL Neutrophils # 9.4 H (1.3-7.7) k/uL Lymphocytes # 0.5 L (1.0-4.8) k/uL ABG pO2 111 H (83-108) mmHg ABG Total CO2 27 H (19-24) mmol/L ABG O2 Saturation 99.1 H (94-97) % Sodium 131 L (137-145) mmol/L BUN 111 H* (9-20) mg/dL Creatinine 4.02 H (0.66-1.25) mg/dL Glucose 248 H (74-99) mg/dL POC Glucose (mg/dL) (70-110) mg/dL Calcium 7.3 L (8.4-10.2) mg/dL Phosphorus 5.1 H (2.5-4.5) mg/dL Total Protein 4.4 L (6.3-8.2) g/dL Albumin 1.9 L (3.5-5.0) g/dL 12/02/23 Range/Units 06:04 RBC (4.30-5.90) m/uL Hgb (13.0-17.5) gm/dL Hct (39.0-53.0) % RDW (11.5-15.5) % Plt Count (150-450) k/uL Neutrophils # (1.3-7.7) k/uL Lymphocytes # (1.0-4.8) k/uL ABG pO2 (83-108) mmHg ABG Total CO2 (19-24) mmol/L ABG O2 Saturation (94-97) % Sodium (137-145) mmol/L BUN (9-20) mg/dL Creatinine (0.66-1.25) mg/dL Glucose (74-99) mg/dL POC Glucose (mg/dL) 280 H (70-110) mg/dL Calcium (8.4-10.2) mg/dL Phosphorus (2.5-4.5) mg/dL Total Protein (6.3-8.2) g/dL Albumin (3.5-5.0) g/dL Microbiology - Last 24 Hours (Table) 11/26/23 12:22 Blood Culture - Final Blood Assessment and Plan Assessment: Impression: Acute hypoxic respiratory failure requiring intubation mechanical ventilation secondary to aspiration. Status post J-tube placement 11/16/2023, multiple complications since then related to the J-tube placement requiring multiple surgeries. 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 Continue nasogastric tube to suction as well as the jejunostomy tube Continue TPN for nutritional support Continue Merrem for antibiotics coverage Continue to monitor labs on a daily basis including platelets, CBC, and basic metabolic profile Continue dialysis Continue Lasix patient is quite edematous and swollen Avoid nephrotoxic drugs Continue GI and DVT prophylaxis Patient is critically ill, updated his on his condition at bedside Call care time is over 30-minute Will continue to follow Time with Patient: Greater than 30
--- NOTE | 2023-12-02 11:32 | P.PN ---
Subjective Patient is seen for follow-up for acute kidney injury. Started on Cleviprex drip today as blood pressure was elevated. Urine output at 60-100 mL an hour. Patient remains on the vent. Patient remains on Lasix 80 mg IV every 12 hours. FiO2 at 35%. Objective - Vital Signs Vital signs: Vital Signs Temp 98.2 F 12/02/23 08:00 Pulse 79 12/02/23 11:23 Resp 34 H 12/02/23 11:23 BP 151/84 12/02/23 09:00 Pulse Ox 96 12/02/23 11:00 FiO2 35 12/02/23 11:20 Intake & Output 12/01/23 12/02/23 12/02/23 18:59 06:59 18:59 Intake Total 4952.275 3520.893 396.502 Output Total 1350 1865 720 Balance -68.941 554.893 -323.498 Weight 116.2 kg 116.2 kg Intake: IV 293 1158.999 340 0.9 KVO 110 120 40 Meropenem 1 gm In Sodium 99.999 Chloride 0.9% 100 ml @ 33 .333 mls/hr IVPB Q12HR [facility] Rx#:[id number] Mvi, Adult No.4 with Vit 150 600 K 10 ml Trace (Conc-1Ml/ Dose) 1 ml Sodium Acetate 30 meq Potassium Acetate 10 meq Calcium Gluconate 1 gm In Amino Acids 5 %/ Dextrose 20 % 1,000 ml @ 75 mls/hr IV .BY DURATION [facility] Rx#:[id number] Normal Saline Pressure 33 39 Saline Sodium Acetate 60 meq 300 300 Potassium Chloride 14 meq Calcium Gluconate 1.5 gm Magnesium Sulfate gm 0. 25 gm In Amino Acids 5 %/ Dextrose 20 % 1,000 ml @ 75 mls/hr IV .BY DURATION [facility] Rx#:[id number] Intake, IV Titration 136.431 7289.894 56.502 Amount Clevidipine Butyrate 25 1.200 mg In Empty Bag 1 bag @ 1 MG/HR 2 mls/hr IV .Q24H [facility] Rx#:[id number] Mvi, Adult No.4 with Vit 1010 K 10 ml Trace (Conc-1Ml/ Dose) 1 ml Sodium Acetate 60 meq Potassium Chloride 14 meq Calcium Gluconate 1.5 gm Magnesium Sulfate gm 0.25 gm In Amino Acids 5 %/ Dextrose 20 % 1,000 ml @ 75 mls/hr IV .BY DURATION [facility] Rx#:[id number] Sodium Acetate 60 meq 825 75 Potassium Chloride 14 meq Calcium Gluconate 1.5 gm Magnesium Sulfate gm 0. 25 gm In Amino Acids 5 %/ Dextrose 20 % 1,000 ml @ 75 mls/hr IV .BY DURATION [facility] Rx#:[id number] propofoL 1,000 mg In 163.059 175.894 55.302 Empty Bag 1 bag @ 20 MCG/ KG/MIN 9.36 mls/hr IV . [id number] [facility] Rx#:[id number] Output: Gastric Drainage 100 100 Drainage 390 410 70 Left Abdomen 30 10 Right Abdomen 360 400 70 Urine 860 1355 650 Other: Voiding Method Indwelling Catheter Indwelling Catheter ABP, PAP, CO, CI - Last Documented Arterial Blood Pressure 152/59 - Exam patient is sedated and on the vent. Examination of the heart S1 and S2 Examination of the lungs bilateral breath sounds are heard Abdomen is soft dressed, RAYA drain noted Examination of lower extremities shows edema 3+ with significant scrotal edema - Labs CBC & Chem 7: 12/02/23 05:14 12/02/23 05:14 Labs: Abnormal Lab Results - Last 24 Hours (Table) 12/01/23 12/01/23 12/02/23 Range/Units 11:48 17:38 00:34 RBC (4.30-5.90) m/uL Hgb (13.0-17.5) gm/dL Hct (39.0-53.0) % RDW (11.5-15.5) % Plt Count (150-450) k/uL Neutrophils # (1.3-7.7) k/uL Lymphocytes # (1.0-4.8) k/uL ABG pO2 (83-108) mmHg ABG Total CO2 (19-24) mmol/L ABG O2 Saturation (94-97) % Sodium (137-145) mmol/L BUN (9-20) mg/dL Creatinine (0.66-1.25) mg/dL Glucose (74-99) mg/dL POC Glucose (mg/dL) 246 H 194 H 226 H (70-110) mg/dL Calcium (8.4-10.2) mg/dL Phosphorus (2.5-4.5) mg/dL Total Protein (6.3-8.2) g/dL Albumin (3.5-5.0) g/dL 12/02/23 12/02/23 12/02/23 Range/Units 05:14 05:14 05:30 RBC 3.02 L (4.30-5.90) m/uL Hgb 8.6 L (13.0-17.5) gm/dL Hct 26.0 L (39.0-53.0) % RDW 19.7 H (11.5-15.5) % Plt Count 74 L D (150-450) k/uL Neutrophils # 9.4 H (1.3-7.7) k/uL Lymphocytes # 0.5 L (1.0-4.8) k/uL ABG pO2 111 H (83-108) mmHg ABG Total CO2 27 H (19-24) mmol/L ABG O2 Saturation 99.1 H (94-97) % Sodium 131 L (137-145) mmol/L BUN 111 H* (9-20) mg/dL Creatinine 4.02 H (0.66-1.25) mg/dL Glucose 248 H (74-99) mg/dL POC Glucose (mg/dL) (70-110) mg/dL Calcium 7.3 L (8.4-10.2) mg/dL Phosphorus 5.1 H (2.5-4.5) mg/dL Total Protein 4.4 L (6.3-8.2) g/dL Albumin 1.9 L (3.5-5.0) g/dL 12/02/23 Range/Units 06:04 RBC (4.30-5.90) m/uL Hgb (13.0-17.5) gm/dL Hct (39.0-53.0) % RDW (11.5-15.5) % Plt Count (150-450) k/uL Neutrophils # (1.3-7.7) k/uL Lymphocytes # (1.0-4.8) k/uL ABG pO2 (83-108) mmHg ABG Total CO2 (19-24) mmol/L ABG O2 Saturation (94-97) % Sodium (137-145) mmol/L BUN (9-20) mg/dL Creatinine (0.66-1.25) mg/dL Glucose (74-99) mg/dL POC Glucose (mg/dL) 280 H (70-110) mg/dL Calcium (8.4-10.2) mg/dL Phosphorus (2.5-4.5) mg/dL Total Protein (6.3-8.2) g/dL Albumin (3.5-5.0) g/dL Microbiology - Last 24 Hours (Table) 11/26/23 12:22 Blood Culture - Final Blood Assessment and Plan Assessment: 1. Acute kidney injury secondary to ATN secondary to septic shock. Creatinine 0.86 on admission and up to 5.38 dated November 29, 2023. Urine output improved, now nonoliguric. UA fairly benign. No hydronephrosis noted on imaging. 2. Perforated small bowel status post exploratory laparotomy with abdominal washout, small bowel resection and J-tube replacement November 25, 2023. 3. A-fib with RVR. s/p amiodarone drip. Also received digoxin this admission. 4. Recently diagnosed gastric B-cell lymphoma. 5. Septic shock. Likely abdominal source. On IV antibiotics. Off vasopressors now. 6. Hypocalcemia secondary to acute kidney injury. Replaced. Improved. 7. Metabolic acidosis secondary to acute kidney injury. Improved. Plan: proceed with hemodialysis today given the significant volume overload and hypertension. Continue with IV Lasix Continue TPN Repeat labs in a.m.
[2023-12-02 11:50] LABS: Glucose,Whole Blood 230 mg/dL (70-110)
--- NOTE | 2023-12-02 14:43 | P.PN ---
Subjective Patient seen and evaluated at bedside. no acute events overnight. Objective - Vital Signs Vital signs: Vital Signs Temp 98.0 F 12/02/23 12:00 Pulse 80 12/02/23 14:00 Resp 29 H 12/02/23 14:00 BP 151/84 12/02/23 09:00 Pulse Ox 95 12/02/23 14:00 FiO2 35 12/02/23 12:00 Intake & Output 12/01/23 12/02/23 12/02/23 18:59 06:59 18:59 Intake Total 6854.246 2763.893 566.502 Output Total 1350 1865 880 Balance -68.941 554.893 -313.498 Weight 116.2 kg 116.2 kg Intake: IV 293 1158.999 510 0.9 KVO 110 120 60 Meropenem 1 gm In Sodium 99.999 Chloride 0.9% 100 ml @ 33 .333 mls/hr IVPB Q12HR [facility] Rx#:[id number] Mvi, Adult No.4 with Vit 150 600 K 10 ml Trace (Conc-1Ml/ Dose) 1 ml Sodium Acetate 30 meq Potassium Acetate 10 meq Calcium Gluconate 1 gm In Amino Acids 5 %/ Dextrose 20 % 1,000 ml @ 75 mls/hr IV .BY DURATION [facility] Rx#:[id number] Normal Saline Pressure 33 39 Saline Sodium Acetate 60 meq 300 450 Potassium Chloride 14 meq Calcium Gluconate 1.5 gm Magnesium Sulfate gm 0. 25 gm In Amino Acids 5 %/ Dextrose 20 % 1,000 ml @ 75 mls/hr IV .BY DURATION [facility] Rx#:[id number] Intake, IV Titration 863.495 4090.894 56.502 Amount Clevidipine Butyrate 25 1.200 mg In Empty Bag 1 bag @ 1 MG/HR 2 mls/hr IV .Q24H [facility] Rx#:[id number] Mvi, Adult No.4 with Vit 1010 K 10 ml Trace (Conc-1Ml/ Dose) 1 ml Sodium Acetate 60 meq Potassium Chloride 14 meq Calcium Gluconate 1.5 gm Magnesium Sulfate gm 0.25 gm In Amino Acids 5 %/ Dextrose 20 % 1,000 ml @ 75 mls/hr IV .BY DURATION [facility] Rx#:[id number] Sodium Acetate 60 meq 825 75 Potassium Chloride 14 meq Calcium Gluconate 1.5 gm Magnesium Sulfate gm 0. 25 gm In Amino Acids 5 %/ Dextrose 20 % 1,000 ml @ 75 mls/hr IV .BY DURATION [facility] Rx#:[id number] propofoL 1,000 mg In 163.059 175.894 55.302 Empty Bag 1 bag @ 20 MCG/ KG/MIN 9.36 mls/hr IV . [id number] [facility] Rx#:[id number] Output: Gastric Drainage 100 100 Drainage 390 410 70 Left Abdomen 30 10 Right Abdomen 360 400 70 Urine 860 1355 810 Other: Voiding Method Indwelling Catheter Indwelling Catheter Indwelling Catheter ABP, PAP, CO, CI - Last Documented Arterial Blood Pressure 158/62 - Exam gen: nad cv: rrr pul: non labored breathing abd: soft, distended, non tender to palpation, no guarding or rebound tenderness, surgical incision has mild drainage - Labs CBC & Chem 7: 12/02/23 05:14 12/02/23 05:14 Labs: Abnormal Lab Results - Last 24 Hours (Table) 12/01/23 12/02/23 12/02/23 Range/Units 17:38 00:34 05:14 RBC (4.30-5.90) m/uL Hgb (13.0-17.5) gm/dL Hct (39.0-53.0) % RDW (11.5-15.5) % Plt Count (150-450) k/uL Neutrophils # (1.3-7.7) k/uL Lymphocytes # (1.0-4.8) k/uL ABG pO2 (83-108) mmHg ABG Total CO2 (19-24) mmol/L ABG O2 Saturation (94-97) % Sodium 131 L (137-145) mmol/L BUN 111 H* (9-20) mg/dL Creatinine 4.02 H (0.66-1.25) mg/dL Glucose 248 H (74-99) mg/dL POC Glucose (mg/dL) 194 H 226 H (70-110) mg/dL Calcium 7.3 L (8.4-10.2) mg/dL Phosphorus 5.1 H (2.5-4.5) mg/dL Total Protein 4.4 L (6.3-8.2) g/dL Albumin 1.9 L (3.5-5.0) g/dL 12/02/23 12/02/23 12/02/23 Range/Units 05:14 05:30 06:04 RBC 3.02 L (4.30-5.90) m/uL Hgb 8.6 L (13.0-17.5) gm/dL Hct 26.0 L (39.0-53.0) % RDW 19.7 H (11.5-15.5) % Plt Count 74 L D (150-450) k/uL Neutrophils # 9.4 H (1.3-7.7) k/uL Lymphocytes # 0.5 L (1.0-4.8) k/uL ABG pO2 111 H (83-108) mmHg ABG Total CO2 27 H (19-24) mmol/L ABG O2 Saturation 99.1 H (94-97) % Sodium (137-145) mmol/L BUN (9-20) mg/dL Creatinine (0.66-1.25) mg/dL Glucose (74-99) mg/dL POC Glucose (mg/dL) 280 H (70-110) mg/dL Calcium (8.4-10.2) mg/dL Phosphorus (2.5-4.5) mg/dL Total Protein (6.3-8.2) g/dL Albumin (3.5-5.0) g/dL 12/02/23 Range/Units 11:48 RBC (4.30-5.90) m/uL Hgb (13.0-17.5) gm/dL Hct (39.0-53.0) % RDW (11.5-15.5) % Plt Count (150-450) k/uL Neutrophils # (1.3-7.7) k/uL Lymphocytes # (1.0-4.8) k/uL ABG pO2 (83-108) mmHg ABG Total CO2 (19-24) mmol/L ABG O2 Saturation (94-97) % Sodium (137-145) mmol/L BUN (9-20) mg/dL Creatinine (0.66-1.25) mg/dL Glucose (74-99) mg/dL POC Glucose (mg/dL) 230 H (70-110) mg/dL Calcium (8.4-10.2) mg/dL Phosphorus (2.5-4.5) mg/dL Total Protein (6.3-8.2) g/dL Albumin (3.5-5.0) g/dL Microbiology - Last 24 Hours (Table) 11/26/23 12:22 Blood Culture - Final Blood Assessment and Plan Time with Patient: Less than 30
[2023-12-02] MEDS: bisacodyL 10 MG SUPP RECTAL STA (16:03)
--- NOTE | 2023-12-02 16:58 | P.PN ---
Progress Note - Text Progress Note Date: 12/02/23 Chief Complaint: Aspirated This is a 73-year-old patient, follows with Dr. Patricia Deal. Patient was seen this morning in the ICU. Patient's and daughter at the bedside. History obtained predominantly by the . Patient been having trouble with his stomach symptoms for close to 8 months. Patient underwent EGD by Dr. Sahara Cheng yesterday. Patient was found to have ulcerated around the antrum and obstruction to the pylorus. A lot of retained food was found. Patient aspirated. Had to be intubated and brought to the ICU. On a Levophed drip. FiO2 50 and a PEEP of 6. Patient had been losing weight lost about 25 pounds. Previously has a history of mitral valve prolapse. November 13: ICU. Patient remains on Precedex drip and propofol drip. Did not do well attempted extubation yesterday. Patient been off Levophed. NG tube to suction. Spoke to patient's and son at the bedside. Biopsy results awaited. Hemoglobin dropped to 6.9 this morning. Get a unit of blood. November 14: ICU. Up in a chair. Extubated yesterday. NG tube to suction. at the bedside. 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 Oncology was consulted. They have ordered a port. Results discussed with Dr. Sahara Cheng. General surgery was consulted for J-tube placement. Discussed with at the bedside. Patient getting IV fluids, IV Zosyn,. Patient has been on IV amiodarone for A-fib-back in sinus rhythm. Multiple PACs. Did receive unit of blood yesterday. Also IV ferric gluconate. November 15: ICU. Patient earlier today underwent jejunostomy tube placement and a port placement. Patient awake. Answering questions. NG tube to suction present. Updated patient's . Patient remains on IV amiodarone and IV Zosyn. November 16: ICU. Up in the chair. NG tube present but not to suction. Trickle feeding through the jejunostomy tube should be started today. Dietitian has been on board. IV Zosyn to continue. Patient's and his sister at the bedside. Discussed. Also spoke with Dr. Serna. Given patient has no other predisposing cardiac factors for the A-fib except acute illness. His LV function is normal. Left atrium is normal. He has already been loaded with IV amiodarone. Will switch him to oral Lopressor 12.5 twice daily. Hence will DC amiodarone. Patient yesterday had wheezing was put on bronchodilators steroids per pulmonary. November 17: Propped up in bed. NG tube was discontinued. Sinus rhythm. Remains NPO. Getting G-tube feeding at 40 cc an hour. Dietitian following. Get arrangements done for DC home tomorrow including tube feeding. Increase activity discussed with patient and elder daughter at the bedside. Still requiring oxygen. Incentive spirometry. November 18: Patient up in recliner. Earlier today spoke to social service director David. Informed patient is rather weak and will be going to the [facility]. Looking at authorization. Denae came to the room and spoke to patient his and his daughter. They are very keen to take the patient home as 3 daughters all nurses and they will take care of him at home. Patient earlier today to abdominal cramping and some loose stools.'s tube feeding was held. Told the nurse to start back at the rate of 40 cc an hour. He was before the getting it at 55 cc an hour. Incentive spirometry was again emphasized. Patient remains on 4 L of oxygen. November 19: I saw the patient this morning. Hence I am in the evening. Morning was sitting with his sons. Has some edema. Lungs had crackles I gave him 40 mg of Lasix. He did make good urine. Tube feeding was held from the previous evening of because of abdominal cramping. Acute abdominal series showed nonspecific bowel gas pattern and SBO to be ruled out. Family and patient was updated. Told him discharge will depend on day by day. Later this afternoon CT scanAnd abdomen pelvis done. Showed small bowel to be 3 point centimeter dilated. Some anasarca. Gastric findings. Gallstones. Later spoke to Dr. Irby from general surgery. They will further review and decide about further plan of action. Will give further dose of IV Lasix because of fluid overload from likely hypoalbuminemia and IV fluids previously received. Patient may take his pills by mouth. Total time spent today about 1 hour with over 40 minutes of discussion. Patient did state his breathing is better after Lasix this morning. November 20: Saw the patient this morning. was present. Patient received 2 more doses of Lasix. Diuresed well. Breathing much better. Lungs are sounding better. Discussed with Dr. Zepeda other surgeon. He is taking 3 cc out of the balloon and the gastrostomy tube. Started trickle feeding at 5 cc an hour. Will see how this does. Later in the day ran into the and the daughter again. Did update them on the same. Dilaudid was discontinued yesterday but morphine was ordered by surgery for patient having pain. Concerns about GI issues with that we will DC the morphine. As family does not want the same. November 21: Patient reclining bed. Tired. Several family members at the bedside. Including his and eldest daughter. Patient started on trickle feed yesterday at 5 cc an hour. This morning he has been on 10 cc an hour. Still having some loose stools. C. difficile was ordered. Patient on 2 L of nasal cannula. Has diuresed well. Will give an additional dose of Lasix today. If C. difficile is negative and the diarrhea is from the tube feedings we may have to use a fecal management system to keep him comfortable. Otherwise patient remains NPO. Dietitian is following the patient. Care was discussed length with patient the and daughter at the bedside. Questions answered. Liquid Tylenol has been added for abdominal pain. Avoid narcotics. Elevated white count likely from Solu-Medrol 11/23/2023--patient was feeling better today. Multiple family member at bedside. No issues overnight. Normal saline at 10 cc an hour, tube feeding at 20 cc an hour, remains on Zosyn, on 3 L oxygen. Afebrile. Heart rate 62, respiratory rate 16, blood pressure 114/67, saturating 91% on 3 L. WBCs 14.5, 9.7 hemoglobin. Platelet 242. BMP is unremarkable. Pulmonary and general surgery following. General surgery recommended to continue tube feeds at 20 cc/h. 11/24/2023--patient reported significant abdominal discomfort, also noted to have leak around G-tube. General surgery is following, evaluated the patient at bedside, adjusted tube feeds. Also reported having diarrhea, on 2 L oxygen, went up to 5 L. Blood pressure was low, 500 mL fluid bolus with close monitoring of respiratory status ordered. Currently on DuoNebs, Solu-Medrol, will continue Zosyn. Chest x-ray showed a left lower lobe infiltrate. Abdominal x-ray showed multiple air-fluid levels. CT abdomen showed multiple dilated small bowel loops, consistent with obstruction, pneumoperitoneum, cholelithiasis and ascites. WBCs 14.1, platelet 255, hemoglobin 8.9. NG tube in place. Family at bedside. patient transferred to SICU for close monitoring. 11/25/23--patient is currently in the ICU, required Levophed overnight due to low blood pressure, low urine output with creatinine trending up. Nephrology following. [employer] In[employer] also following. Patient remains n.p.o., NG tube in place, following NG tube insertion patient had total of 2 L output, J-tube was draining approximately 200 cc over last 8 hours, continues to have abdominal pain and abdominal tenderness. Patient on IV fluids. Currently on 4 L oxygen. WBCs 8.2, hemoglobin 12.3, platelet 188. Chest x-ray earlier today showed right sided port and a stable left lung airspace disease, NG tube in place. Patient currently on Zosyn, on IV Dilaudid for pain control, on IV Solu-Medrol. General surgery planning for OR today, started on TPN. 11/26/23--patient was seen and examined today. Patient is currently sedated, intubated on mechanical ventilation. Family at bedside. Patient underwent ex lap, abdominal washout, small bowel resection with new feeding jejunostomy tube placement yesterday, small bowel was noted to be perforated with significant contamination of abdominal cavity. Patient is currently on vancomycin and Zosyn. Creatinine went up to 2.85, nephrology following, recommended to continue IV fluids, avoid nephrotoxin Preserved EF on echocardiogram.. Patient currently on Levophed, vasopressin in the ICU for close monitoring. Patient is afebrile, heart rate 122, blood pressure 129/76, currently on mechanical ventilation, sedated. November 26: ICU. Intubated. FiO2 60 and a PEEP of 5. Drips include IV amiodarone. Heart rate was up early did get fired microgram of IV digoxin and 2.5 mg of IV Lopressor. Did drop her blood pressure bit. Urine output was low. Received 80 mg of IV Lasix. Ahmet to 150 cc. Other drips include IV propofol, vasopressin, Levophed. TPN was started yesterday. Antibiotics include IV Zosyn and vancomycin. Patient has a J-tube to drainage to gravity. Spoke to patient's younger daughter and at the bedside. Prognosis guarded. Continue current treatment plan. Chest x-ray shows right lower lobe consolidation. Small pleural effusion. November 27: ICU. Intubated. FiO2 55 and a PEEP of 5. Antibiotics include IV vancomycin. Drips include Levophed at a small dose, IV vasopressin, propofol, amiodarone. Patient converted to sinus rhythm this morning. Getting TPN and normal saline at 75 cc an hour. Urine output about 25 cc an hour. RAYA drain put out about 260 cc last 12 hours that is last [facility] shift lead. NG tube with bilious output. And also GI J-tube output to gravity. Spoke to patient's and daughter at the bedside. They understand patient still not out of the kee. Platelets have dropped-therefore probably Zosyn stopped. November 28: ICU. Intubated. FiO2 55 and a PEEP of 5. Patient is in sinus rhythm. Seen this morning. Due for dialysis catheter this afternoon. Urine output about 15 to 20 cc an hour. Patient is on IV Lasix 80 mg every 12. Saline is KVO. Drips include IV propofol vasopressin. Patient having significant output through the RAYA drain and the jejunostomy tube to drainage. Creatinine had been getting worse. Patient's at the bedside. Understands patient's remains critically ill. Hemoglobin is down to 7. Given that patient's pain hypotensive, and on vasopressin we will give a unit of blood with dialysis. Getting TPN antibiotic changed to IV meropenem November 29: ICU. Intubated. FiO2 55 and a PEEP of 5. Remains in sinus rhythm. Getting TPN. Dialyzed yesterday and this morning. About 1000 cc removed. Urine output about 50 cc an hour. Patient is on IV propofol. Off vasopressin. Still having significant output through the RAYA drain and jejunostomy tube. Patient received a second unit of blood yesterday. Patient's and daughter at the bedside. I did discuss guarded prognosis. Did asked them to revisit CODE STATUS.. Getting IV meropenem. November 30: ICU. Intubated. Did get a sedation holiday t today. Back on propofol. Getting TPN. Still getting IV Lasix. Fair urine output. Jejunostomy tube in last 8 hours was about 30 cc output. RAYA drain in the 8 hours had about 180 cc output. Telemetry shows sinus rhythm. NG tube has low intermittent suction with negative output. On the vent with FiO2 40 and a PEEP of 5. No hemodialysis today. Discussed with the and eldest daughter at the bedside. IV meropenem-patient's sputum had grown Citrobacter freundii and Pseudomonas aeruginosa. December 01: ICU. Intubated. Jejunostomy tube to gravity. Only 10 cc output in last 24 hours. RAYA drain. About 190 cc last 6 hours. Nasogastric tube to low intermittent suction. Minimal output. Patient is on a small dose of propofol 5 mics. Telemetry shows sinus rhythm. Patient started on small dose of Cleviprex this morning. Blood pressure. Getting TPN. FiO2 35 and PEEP of 5. Discussed with the at the bedside. Hemodialysis today Active Medications Acetaminophen (Acetaminophen Tab 325 Mg Tab) 650 mg PO Q4HR PRN PRN Reason: Fever and/ or Pain Last Admin: 11/22/23 08:46 Dose: 650 mg Acetaminophen (Acetaminophen Oral Susp (Peds) 3,840 Mg/120 Ml Bottle) 480 mg PO Q4HR PRN PRN Reason: Fever Hydrocodone Bitart/Acetaminophen (Hydrocodone/Apap 5-325mg 1 Each Tab) 1 each PO Q4HR PRN PRN Reason: Pain Last Admin: 11/25/23 08:03 Dose: 1 each Albuterol/Ipratropium (Ipratropium-Albuterol 3 Ml Neb) 3 ml INHALATION RT-QID [facility] Last Admin: 12/02/23 15:38 Dose: 3 ml Albuterol/Ipratropium (Ipratropium-Albuterol 3 Ml Neb) 3 ml INHALATION RT-Q2H PRN PRN Reason: Shortness Of Breath Or Wheezing Last Admin: 12/02/23 04:06 Dose: 3 ml Chlorhexidine Gluconate (Chlorhexidine Gluconate 15 Ml Cup) 15 ml MUCOUS MEM BID [facility] Last Admin: 12/02/23 08:32 Dose: 15 ml Dextrose/Water (Dextrose 50% Syringe 50 Ml) 25 ml IVP PER PROTOCOL PRN; Protocol PRN Reason: Hypoglycemia Dextrose/Water (Dextrose 50% Syringe 50 Ml) 50 ml IVP PER PROTOCOL PRN; Protocol PRN Reason: Hypoglycemia Furosemide (Furosemide 10 Mg/Ml 10 Ml Vial) 80 mg IV Q12H [facility] Last Admin: 12/02/23 06:18 Dose: 80 mg Hydromorphone HCl (Hydromorphone 1 Mg/Ml 1 Ml Syringe) 1 mg IVP Q3HR PRN PRN Reason: Pain Last Admin: 12/02/23 16:15 Dose: 1 mg Propofol 1,000 mg/ IV Solution 100 mls @ 9.36 mls/hr IV .[id number] [facility]; Protocol Last Titration: 12/02/23 16:10 Dose: 35 mcg/kg/min, 16.38 mls/hr Vasopressin 20 unit/ Sodium (Chloride) 51 mls @ 4.59 mls/hr IV .[id number] [facility]; Protocol Last Admin: 12/02/23 10:46 Dose: Not Given Norepinephrine Bitartrate 32 (mg/ Sodium Chloride) 250 mls @ 1.097 mls/hr IV .Q24H [facility]; Protocol Last Admin: 12/02/23 10:46 Dose: Not Given Sodium Chloride (Saline 0.9%) 1,000 mls @ 20 mls/hr IV .Q24H [facility] Last Admin: 12/01/23 14:54 Dose: Not Given Meropenem 1 gm/ Sodium (Chloride) 100 mls @ 33.333 mls/hr IVPB HS [facility] Last Admin: 12/01/23 20:49 Dose: 33.333 mls/hr Parenteral Vitamin Supplement 10 ml/ Zinc/Copper/Manganese/Selenium 1 ml/ Sodium Acetate 60 meq/ Potassium Chloride 14 meq/ Calcium Gluconate 1.5 gm/Magnesium Sulfate 0.25 gm/Amino Acids/Dextrose 1,063.5 mls @ 75 mls/hr IV .BY DURATION [facility] Stop: 12/02/23 18:59 Last Admin: 12/02/23 04:21 Dose: 75 mls/hr Sodium Acetate 60 meq/Potassium Chloride 14 meq/Calcium Gluconate 1.5 gm/Magnesium Sulfate 0.25 gm/Amino Acids/Dextrose 1,052.5 mls @ 75 mls/hr IV .BY DURATION [facility] Stop: 12/02/23 18:59 Parenteral Vitamin Supplement 10 ml/ Zinc/Copper/Manganese/Selenium 1 ml/ Sodium Acetate 72 meq/ Potassium Chloride 14 meq/ Calcium Gluconate 2 gm/Magnesium Sulfate 0.25 gm/Amino Acids/Dextrose 1,074.5 mls @ 75 mls/hr IV .BY DURATION [facility] Sodium Acetate 72 meq/Potassium Chloride 14 meq/Calcium Gluconate 2 gm/Magnesium Sulfate 0.25 gm/Amino Acids/Dextrose 1,063.5 mls @ 75 mls/hr IV .BY DURATION [facility] Clevidipine 25 mg/ IV Solution 50 mls @ 2 mls/hr IV .Q24H [facility]; Protocol Last Titration: 12/02/23 16:30 Dose: 0 mg/hr, 0 mls/hr Insulin Aspart (Insulin Aspart (Novolog) 100 Unit/Ml Vial) 0 unit SQ 0000,0600,1200,1800 [facility]; Protocol Last Admin: 12/02/23 12:57 Dose: 4 unit Insulin Detemir (Insulin Detemir (Levemir) 100 Unit/Ml Syr) 24 unit SQ DAILY@0700 [facility] Last Admin: 12/02/23 08:32 Dose: 24 unit Methylprednisolone Sodium Succinate (Methylprednisolone Sod Succi 40 Mg/Ml 1 Ml Vial) 40 mg IV DAILY@1800 [facility] Last Admin: 12/01/23 18:01 Dose: 40 mg Metoprolol Tartrate (Metoprolol Tartrate 5 Mg/5 Ml Vial) 2.5 mg IVP Q6HR PRN PRN Reason: Heart Rate - HIGH Last Admin: 11/27/23 08:25 Dose: 2.5 mg Miscellaneous Information (Magnesium Replacement Protocol 1 Each Misc) 1 each MISCELLANE DAILY PRN; Protocol PRN Reason: Per Protocol Morphine Sulfate (Morphine Sulfate 2 Mg/Ml Syringe) 1 mg IVP Q4HR PRN PRN Reason: Pain Control Last Admin: 12/01/23 16:12 Dose: 1 mg Morphine Sulfate (Morphine Sulfate 2 Mg/Ml Syringe) 2 mg IVP Q4HR PRN PRN Reason: Pain/Discomfort Last Admin: 12/02/23 08:32 Dose: 2 mg Naloxone HCl (Naloxone 0.4 Mg/Ml 1 Ml Vial) 0.2 mg IV Q2M PRN PRN Reason: Opioid Reversal Pantoprazole Sodium (Pantoprazole 40 Mg/10 Ml Vial) 40 mg IVP BID [facility] Last Admin: 12/02/23 08:31 Dose: 40 mg Past medical history to include: GERD Social history: . No smoking. Physical examination: VITAL SIGNS: 97.7, 85, 27, 136 x 59, 93% on the ventilator GENERAL: Sedated, right chest wall port EYES: Pupils equal. Conjunctiva edouard l. HEENT: External appearance of nose and ears normal, oral cavity-endotracheal tube. NG tube-low intermittent suction NECK: JVD unable to assess; masses not palpable. HEART: First and second heart sounds are normal; edema, present LUNGS: Respiratory rate increased, decreased breath sounds ABDOMEN: Soft, nontender, liver spleen not palpable, no masses palpable..jejunostomy tube-attached to gravity. RAYA drain. Incision with stitches PSYCH: Sedated INVESTIGATIONS, reviewed in the clinical context: December 01: White count 10.3 hemoglobin 8.6 platelets 74 sodium 131 potassium 4 BUN 111 creatinine 4.02 November 30: White count 11.4 hemoglobin 8.1 platelets 46 sodium 131 potassium 3.7 BUN 84 creatinine 3.61 albumin 1.9 Sputum culture: [November 25]: Citrobacter freundii. Pseudomonas aeruginosa November 29: White count 10.8 hemoglobin 8.1 platelets 41 potassium 4.3 BUN 93 creatinine 3.61 November 28: White count 8.1 hemoglobin 7 platelets 32 sodium 140 potassium 4.4 BUN 106 creatinine 5.38 albumin 1.9 November 27: White 11.2 hemoglobin 7.9 platelets 46 potassium 4.3 BUN 93 creatinine 4.81 November 26: White count 13 hemoglobin 9.4 platelets sodium 140 potassium 4.4 BUN 83 creatinine 3.71 calcium 6.1 albumin 2.1 November 20: White count 14.4 hemoglobin 8.8 platelets 229 potassium 4.1 BUN [address] scan abdomen [November 19] possible small bowel obstruction Stool: C. difficile negative November 16: White count 9.1 hemoglobin 7.9 platelets 259 potassium 4.3 creati nine 0.92 November 15: WBC 13 hemoglobin 7.7 platelets 248 potassium 4.3 creatinine 0.87 2D echo: EF 55 to 60%. November 14: White count 10.7 hemoglobin 7.5 platelets 239 potassium 4.2 creatinine 0.96 Kidneys bladder: Unremarkable November 13: White count 12 hemoglobin 6.9 platelets 276 potassium 4.4 creatinine 1.21 magnesium 1.8 iron 6 TIBC 365% saturation 1.64 transferrin 261 ferritin 34.6 B12 569 folate 4.4 November 12: White count 14 hemoglobin 7.6 platelets 333 sodium 136 BUN 26 creatinine 1.57 November 11: Creatinine 0.86 EGD: Large amount of retained solid liquid food noted in the stomach. Large superficial gastric antral ulceration involving most of the antrum extending into the pylorus causing pyloric stenosis. Biopsies were obtained. Chest x-ray film personally reviewed by me-scattered infiltrates Assessment plan: -Aspiration pneumonitis bilateral from retained gastric contents mostly food and liquids, causing acute hypoxic respiratory failure: Subsequent sputum culture November 25: Citrobacter freundii, Pseudomonas aeruginosa IV meropenem Pulmonary following -Acute pulmonary edema and fluid overload from hypoalbuminemic state and fluids from IV.: -Small l bowel perforation at site of jejunostomy tube tip with balloon..: Portion of small bowel resected. On November 24. New J-tube was placed.- drainage to gravity:-Minimal output N.p.o. -Acute kidney injury. Possible ATN from hypotensive shock: Slow to respond Renal ultrasound unremarkable. Started on renal replacement therapy on November 28. Followed by nephrology -Nutrition Jejunostomy tube placed November [address] Ewing Getting TPN. -Acute recurrent atrial fibrillation-converted to sinus rhythm Received IV amiodarone. Cardiology following Lopressor -Acute hypoxic respiratory failure from aspiration pneumonia, status post ventilator assisted: Reintubated November 25. FiO2 50 PEEP of 5 Had sedation holiday today -Hypertension Patient started on Cleviprex -Normocytic anemia likely to secondary underlying lymphoma. Also anemia of blood draw. Iron deficiency anemia Received 2 unit of blood. IV iron. - -Severe thrombocytopenia. Would consider coagulation disorder secondary to infection., In the setting of underlying lymphoma.: Slow to respond Hematology following. -Acute blood loss anemia, Received 2 units of blood -GERD PPI -Acute diarrhea secondary to tube feeding.: Resolved C. difficile ruled out. -Large superficial gastric antral ulceration involving the gastric antrum extending into the pylorus with gastric outlet obstruction. 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 Port placed. For outpatient PET scan. -Full code Continue current treatment plan. Prognosis remains guarded. Past Medical History Past Medical History: GERD/Reflux History of Any Multi-Drug Resistant Organisms: None Reported Past Surgical History: Heart Catheterization Additional Past Surgical History / Comment(s): colonsocopy,spinal injection, Past Anesthesia/Blood Transfusion Reactions: No Reported Reaction Past Psychological History: No Psychological Hx Reported Smoking Status: Never smoker Past Alcohol Use History: None Reported Past Drug Use History: None Reported
[2023-12-02] MEDS: [UNRECOGNIZED DRUG - REMARK] IV SCH (17:29)
[2023-12-02 18:17] LABS: Glucose,Whole Blood 157 mg/dL (70-110)
[2023-12-02 23:33] LABS: Glucose,Whole Blood 194 mg/dL (70-110)
[2023-12-03 05:30] LABS: African American GFR (CKD) 19 (>60 ml/min/1.73 sqM); Anion Gap 6 mmol/L; Blood Urea Nitrogen 89 mg/dL (9-20); Calcium 7.2 mg/dL (8.4-10.2); Carbon Dioxide 24 mmol/L (22-30); Chloride 100 mmol/L (98-107); Glucose 242 mg/dL (74-99); Magnesium 1.9 mg/dL (1.6-2.3); Non-African American GFR(CKD) 17 (>60 ml/min/1.73 sqM); Phosphorus 4.7 mg/dL (2.5-4.5); Potassium 3.9 mmol/L (3.5-5.1); Sodium 130 mmol/L (137-145)
[2023-12-03 05:33] LABS: ABG Base Excess 1.8 mmol/L; ABG HCO3 26 mmol/L (21-25); ABG Oxygen Saturation 98.7 % (94-97); ABG PCO2 39 mmHg (35-45); ABG PH 7.44 (7.35-7.45); ABG PO2 99 mmHg (83-108); ABG TCO2 27 mmol/L (19-24); Allen Test Performed? Yes
[2023-12-03 05:43] LABS: Anisocytosis Moderate; Basophils % (A) 0 %; Eosinophils % (A) 0 %; HCT 25.2 % (39.0-53.0); HGB 8.2 gm/dL (13.0-17.5); Hypochromasia Slight; Lymphocytes # (A) 0.3 k/uL (1.0-4.8); Lymphocytes % (A) 4 %; MCH 27.9 pg (25.0-35.0); MCHC 32.6 g/dL (31.0-37.0); MCV 85.8 fL (80.0-100.0); Mean Platelet Volume 12.4; Monocytes # (A) 0.3 k/uL (0-1.0); Monocytes % (A) 3 %; Neutrophils # (A) 7.8 k/uL (1.3-7.7); Neutrophils % (A) 92 %; RBC 2.94 m/uL (4.30-5.90); WBC 8.5 k/uL (3.8-10.6)
[2023-12-03 05:46] LABS: Platelet Count 65 k/uL (150-450)
--- NOTE | 2023-12-03 07:53 | XR ---
EXAMINATION TYPE: XR chest 1V portable DATE OF EXAM: 12/03/2023 COMPARISON: 12/02/2023 HISTORY: SOB, Follow Up FINDINGS: Indwelling tubes and catheters are unchanged. No change in bibasilar opacities. Stable appearance of the cardio-mediastinal structures at this time. Pleural effusion unchanged. IMPRESSION: 1. Stable portable chest. Clinical correlation and follow up until resolution is recommended. [facility], , 12/03/2023 7:51 AM
[2023-12-03 12:06] LABS: Glucose,Whole Blood 204 mg/dL (70-110)
--- NOTE | 2023-12-03 12:34 | P.PN ---
Subjective Patient is seen for follow-up for acute kidney injury. status post hemodialysis yesterday with UF of 1.5 L. Patient remains on the vent. Sedation is being decreased. urine output at 50-100 mL per hour. Objective - Vital Signs Vital signs: Vital Signs Temp 98.2 F 12/03/23 12:00 Pulse 74 12/03/23 12:00 Resp 25 H 12/03/23 12:00 BP 117/62 12/03/23 12:00 Pulse Ox 99 12/03/23 12:00 FiO2 35 12/03/23 12:00 Intake & Output 12/02/23 12/03/23 12/03/23 18:59 06:59 18:59 Intake Total 7337.195 9103.836 998.524 Output Total 1475 4510 4875 Balance -450.439 -1880.164 -3876.476 Weight 116.2 kg 112.6 kg Intake: IV 870 1067.999 516 0.9 KVO 120 110 60 Meropenem 1 gm In Sodium 99.999 Chloride 0.9% 100 ml @ 33 .333 mls/hr IVPB HS NIRMAL Rx#:[id number] Normal Saline Pressure 33 6 Saline Sodium Acetate 60 meq 750 825 450 Potassium Chloride 14 meq Calcium Gluconate 1.5 gm Magnesium Sulfate gm 0. 25 gm In Amino Acids 5 %/ Dextrose 20 % 1,000 ml @ 75 mls/hr IV .BY DURATION NIRMAL Rx#:[id number] Intake, IV Titration 375.954 5839.837 82.524 Amount Clevidipine Butyrate 25 37.834 mg In Empty Bag 1 bag @ 1 MG/HR 2 mls/hr IV .Q24H [facility] Rx#:[id number] Mvi, Adult No.4 with Vit 965 K 10 ml Trace (Conc-1Ml/ Dose) 1 ml Sodium Acetate 72 meq Potassium Chloride 14 meq Calcium Gluconate 2 gm Magnesium Sulfate gm 0.25 gm In Amino Acids 5 %/Dextrose 20 % 1,000 ml @ 75 mls/hr IV .BY DURATION NIRMAL Rx#: [id number] propofoL 1,000 mg In 116.727 196.837 82.524 Empty Bag 1 bag @ 20 MCG/ KG/MIN 9.36 mls/hr IV . [id number] [facility]AL Rx#:[id number] Hemodialysis 400 400 Output: Gastric Drainage 130 Drainage 160 160 60 Left Abdomen 40 Right Abdomen 160 120 60 Urine 1185 950 415 Hemodialysis 1900 2400 Hemodialysis Net Amount 1500 2000 Other: Voiding Method Indwelling Catheter Indwelling Catheter Indwelling Catheter ABP, PAP, CO, CI - Last Documented Arterial Blood Pressure 143/63 - Exam patient is sedated and on the vent. Examination of the heart S1 and S2 Examination of the lungs bilateral breath sounds are heard Abdomen is soft dressed, RAYA drain noted Examination of lower extremities shows edema 3+ with significant scrotal edema - Labs CBC & Chem 7: 12/03/23 05:04 12/03/23 05:04 Labs: Abnormal Lab Results - Last 24 Hours (Table) 12/02/23 12/02/23 12/03/23 Range/Units 18:15 23:31 05:04 RBC 2.94 L (4.30-5.90) m/uL Hgb 8.2 L (13.0-17.5) gm/dL Hct 25.2 L (39.0-53.0) % RDW 20.0 H (11.5-15.5) % Plt Count 65 L (150-450) k/uL Neutrophils # 7.8 H (1.3-7.7) k/uL Lymphocytes # 0.3 L (1.0-4.8) k/uL ABG HCO3 (21-25) mmol/L ABG Total CO2 (19-24) mmol/L ABG O2 Saturation (94-97) % Sodium (137-145) mmol/L BUN (9-20) mg/dL Creatinine (0.66-1.25) mg/dL Glucose (74-99) mg/dL POC Glucose (mg/dL) 157 H 194 H (70-110) mg/dL Calcium (8.4-10.2) mg/dL Phosphorus (2.5-4.5) mg/dL 12/03/23 12/03/23 12/03/23 Range/Units 05:04 06:00 12:04 RBC (4.30-5.90) m/uL Hgb (13.0-17.5) gm/dL Hct (39.0-53.0) % RDW (11.5-15.5) % Plt Count (150-450) k/uL Neutrophils # (1.3-7.7) k/uL Lymphocytes # (1.0-4.8) k/uL ABG HCO3 26 H (21-25) mmol/L ABG Total CO2 27 H (19-24) mmol/L ABG O2 Saturation 98.7 H (94-97) % Sodium 130 L (137-145) mmol/L BUN 89 H (9-20) mg/dL Creatinine 3.45 H (0.66-1.25) mg/dL Glucose 242 H (74-99) mg/dL POC Glucose (mg/dL) 204 H (70-110) mg/dL Calcium 7.2 L (8.4-10.2) mg/dL Phosphorus 4.7 H (2.5-4.5) mg/dL Assessment and Plan Assessment: 1. Acute kidney injury secondary to ATN secondary to septic shock. Creatinine 0.86 on admission and up to 5.38 dated November 29, 2023. nonoliguric. UA fairly benign. No hydronephrosis noted on imaging. 2. Perforated small bowel status post exploratory laparotomy with abdominal washout, small bowel resection and J-tube replacement November 25, 2023. 3. A-fib with RVR. s/p amiodarone drip. Also received digoxin this admission. 4. Recently diagnosed gastric B-cell lymphoma. 5. Septic shock. Likely abdominal source. On IV antibiotics. Off vasopressors now. 6. Hypocalcemia secondary to acute kidney injury. Replaced. Improved. 7. Metabolic acidosis secondary to acute kidney injury. Improved. 8. Volume overload Plan: continue daily dialysis Continue with IV Lasix Continue TPN Repeat labs in a.m.
--- NOTE | 2023-12-03 13:25 | XR ---
EXAMINATION TYPE: XR abdomen 1V DATE OF EXAM: 12/03/2023 HISTORY: Pain. Technique: 2 views of the abdomen are submitted. Comparison: 11/24/2023 Findings: There is no convincing evidence of pneumoperitoneum. The Bowel gas pattern is nonspecific and nonobstructive. No sizable air-fluid levels are seen. Skin kelly are seen near the midline. Residual contrast is s een within nondilated loops of bowel. No mass effects are noted. No renal calcifications are identified. IMPRESSION: 1. Nonspecific nonobstructive bowel gas pattern [facility], , 12/03/2023 1:23 PM
--- NOTE | 2023-12-03 14:14 | P.PN ---
Subjective Progress Note Date: 12/03/23 Principal diagnosis: Acute hypoxic respiratory failure requiring intubation mechanical ventilation secondary to aspiration. This is a 73-year-old white male with history of chronic abdominal pain for the last 8 months has been treated with Protonix 40 mg daily for the last 3 months with no improvement. Patient had a 22 pound weight loss in the last [address] of the abdomen and pelvis 3 weeks ago showed thickening of the antral wall with pathological adenopathy posterior to the stomach suspicious of neoplasm. Today the patient underwent elective upper endoscopy to evaluate further, patient received IV sedation by anesthesia endoscope was inserted into the mouth, esop hagus was intubated without any difficulty there was evidence of large amount of liquid and solid food noted in the stomach suggestive of gastric outlet obstruction. Scope could not be advanced through the pylorus, however in the prepyloric area there was a large superficial ulceration identified with multiple biopsies were done from this area. The body cardia and fundus could not adequately visualize because of large amount of retained food in the stomach. Scope was withdrawn back to the stomach and upon careful examination the mucosa of the antrum body and cardia as well as the fundus appeared normal. Procedure was being performed and biopsies were done patient threw up and subsequently became hypoxic there was clearly evidence of witnessed aspiration anesthesia intubated the patient, procedure was terminated, and the patient was transferred to the ICU, this consult was initiated. Patient is now on assist- control rate of 20 tidal volume 500 FiO2 70% PEEP of 10 ABG is pending, earlier ABG showed profound hypoxia patient is on propofol at 50 mcg/kg/min, next ABG is pending. Chest x-ray showed chronic changes without evidence of acute pulmonary disease. Patient was evaluated today on 11/17/2023, patient underwent uneventful placement of a jejunostomy tube yesterday, in the ICU on 5 L, patient is relatively stable, not in any distress, patient continues to have nasogastric tube in place although he did have a J-tube placed yesterday. Patient was seen by oncology for his non-Hodgkin's lymphoma involving the gastric outlet. Today's x-ray showed evidence of pneumonia/bilateral interstitial infiltrate/edema patient was given a dose of Lasix, I reminded the patient had an aspiration episode which was significant. And he required intubation mechanical ventilation for a few days.WBC count today is 9.1 hemoglobin 7.9 electrolytes are normal renal profile is normal hence I plan to transfer the patient out of the ICU to a cardiac floor. And hopefully discharge planning in the next 2 days for On 11/29/2023, the patient is being seen for a follow-up. Remains intubated on the mechanical ventilator. The patient sedated on propofol which is running at 35 mcg/kg/min. Synchronous with mechanical ventilator. On today's evaluation, he is on assist-control mode with rate of 28, tidal volume of 550, FiO2 55% with a PEEP of 5. Chest x-ray shows lower lobe consolidation bilaterally worse on the right and the orotracheal tube is in good location. The blood gas showed a pH of 7.34 with a pCO2 of 35 and a pO2 of 84. No significant orotracheal secretions. Hemodynamically improved compared to yesterday. In fact, the patient is on minimal norepinephrine that was discontinued earlier this morning. The patient has converted to normal sinus rhythm. Remains on amiodarone at 0.5 mg/min. Overall fluid balance over the past 24 hours is 2.4 L positive. Urine output has been adequate and the patient is currently on IV Lasix. Nevertheless, the patient has developed progressive worsening renal function. Creatinine is up to 5.3 on today's evaluation with a potassium level of 4.4. Serum bicarb is at 18 with an anion gap of 9. WBC count is at 8.1 with a hemogl obin of 7 and a platelet count of 32 which has dropped compared to earlier evaluation. The rest of the coagulation profile was normal from 11/28/2023. Fibrinogen level is slightly elevated. Sputum samples have shown a combination of Citrobacter and Pseudomonas aeruginosa. Based on cultures and sensitivities, the patient will be taken off his IV Zosyn and he will be switched to IV meropenem. Output from the J-tube is fecal. Output from the NG tube is gastric and surgical wound site is dry clean and intact. He is afebrile for now. Hemodynamically, the patient is doing better. He remains on TPN for nutritional support. IV fluids are also running at a rate of 75 cc an hour. Remains on vancomycin. 11/22/2023, the patient is being seen for a follow-up. The patient remains on propofol at 50 mcg/kg/min. Ventilator settings are essentially unchanged. The patient remains on assist-control mode with rate of 18, tidal volume of 400, FiO2 50% with a PEEP of 5. The blood gas showed a pH of 7.37 with a pCO2 of 43 and pO2 of 127. Chest x-ray shows no significant interval change. Patient remains on normal saline at rate of 75 cc an hour and TPN at rate of 35 cc an hour. Fluid balance is positive. Hemodialysis was performed yesterday and the second session of hemodialysis to be done today. The patient's urine output is in the order of 20 to 30 cc an hour. The patient has an NG output of 350 cc for yesterday and the drainage from the J-tube is in the order of 400 cc over the past 24 hours. The blood work shows a WBC count of 10.8, hemoglobin 8.1 and platelet count of 41. Platelet counts are essentially stable and slightly improved compared to yesterday. The sodium level is at 133, potassium is at 4.3, BUN is 93 with a creatinine of 3.6. LFTs are within normal limits. Albumin is down to 2.1. The patient is currently on no pressors. Norepinephrine and vasopressin are both discontinued and the patient remains in normal sinus rhythm. No other significant events overnight. Family has been updated on his condition. Antibiotic coverage is currently with IV meropenem. Vancomycin and Zosyn have been both discontinued. On 12/01/2023, the patient remains sedated on propofol which is running at 25 mcg/kg/min., Comfortable and synchronous mechanical ventilator. The patient remains on assist-control mode rate of 28, tidal volume of 550, FiO2 40% and PEEP of 5. Blood gas shows a pH of 7.49 with a pCO2 of 34 and pO2 of 121. Patient underwent hemodialysis yesterday. No plans for hemodialysis today the patient is producing urine output. Remains on TPN for nutrition support rate of 75 cc an hour. IV fluids are currently at KVO. The chest x-ray from today shows bilateral lower lobe consolidation worse on the right. No significant change in the volume status. The patient continues to have third spacing and edema in all 4 extremities. Nevertheless, urine output is adequate at this point in time and the patient remains on Lasix 80 mg IV every 12 hours. Remains NPO. NG tube and J-tube are both drainage. Output is noted. Remains on IV meropenem. Afebrile. Currently on no pressors. Blood work shows a WBC count of 11.4, hemoglobin of 8.1 and platelet count of 46. Sodium is at 131, potassium level is at 3.7, chloride 101 and bicarb is at 24. BUN is 84 with a creatinine of 3.6. Glucose of 228. LFTs are within normal limits. Patient was reevaluated today on 12/02/23, patient remains in the ICU, patient is familiar to my service, I saw this patient 3 weeks ago. Since then he had a very complicated hospital course, related to his jejunostomy tube dislodging and leaking and picture of abdominal sepsis and worsening pneumonia/ARDS. Patient had to be placed back on mechanical ventilation, and he is now intubated and mechanically ventilated. He is on assist-control rate of 20 tidal volume 550 FiO2 40% PEEP of 5 ABG showed a pO2 of 111 pCO2 38 pH of 7.43 and I cut down his FiO2 to 35% and increase his flow rate from 60-70. Patient remains on TPN at 75 cc/h he is on propofol at 25 mcg/kg/min patient is on Cleviprex which I added today for elevated blood pressure. Receiving Lasix 80 mg every 12 hours is also on Merrem as per infectious disease. Patient is on hemodialysis and being followed by nephrology. Patient required multiple abdominal surgeries since his initial admission. Chest x-ray continues to show worsening pneumonia involving both lungs, right more so than left, I suspect there may be a component of ARDS. His initial presentation was the presentation of aspiration pneumonia to begin with and that was 3 weeks agoWBC count is 10.3 hemoglobin 8.6 sodium 131 potassium 4 chloride 100 bicarb 23 BUN is 111 creatinine 4.02 blood sugar is 248. Albumin is 1.9 Patient was evaluated today on , patient remains in the ICU, intubated and mechanically ventilated. Patient is on assist-control rate of 20 tidal volume 550 FiO2 35% and PEEP of 5 ABG showed a pO2 of 99 pCO2 39 pH of 7.44 patient is undergoing hemodialysis today, and the plan is to remove 2 L. He is remains on propofol at 35 mcg/kg/min, remains on TPN at 75 cc/h. Remains on Merrem. Patient is not requiring any pressors today. Yesterday patient did not tolerate to be off sedation long enough, and today we tried the same sedation in terruption, and the patient did not do well post interruption of sedation, became extremely agitated restless, tachycardic, and could not fully assess mental status off sedation. Hence the patient was placed back on AC mode of mechanical ventilation, and the plan is to continue the same supportive care measures. Family updated on his condition and most likely the patient will end up requiring tracheostomy in the next few days.WBC count is 8.5 hemoglobin 8.2 basic metabolic profile is relatively unremarkable BUN is 89 creatinine 3.45 chest x-ray today showed stable chest, suspect some right-sided pleural effusion which would likely improve with hemodialysis/ultrafiltration. X-ray of abdomen showed nonspecific nonobstructive bowel gas pattern Objective - Vital Signs Vital signs: Vital Signs Temp 98.2 F 12/03/23 12:00 Pulse 81 12/03/23 13:00 Resp 28 H 12/03/23 13:00 BP 117/62 12/03/23 12:00 Pulse Ox 97 12/03/23 13:00 FiO2 35 12/03/23 12:00 Intake & Output 12/02/23 12/03/23 12/03/23 18:59 06:59 18:59 Intake Total 1130.060 8781.836 1004.290 Output Total 1475 4510 4875 Balance -450.439 -1880.164 -3870.710 Weight 116.2 kg 112.6 kg Intake: IV 870 1067.999 516 0.9 KVO 120 110 60 Meropenem 1 gm In Sodium 99.999 Chloride 0.9% 100 ml @ 33 .333 mls/hr IVPB HS [facility] Rx#:[id number] Normal Saline Pressure 33 6 Saline Sodium Acetate 60 meq 750 825 450 Potassium Chloride 14 meq Calcium Gluconate 1.5 gm Magnesium Sulfate gm 0. 25 gm In Amino Acids 5 %/ Dextrose 20 % 1,000 ml @ 75 mls/hr IV .BY DURATION [facility]AL Rx#:[id number] Intake, IV Titration 338.086 4807.837 88.290 Amount Clevidipine Butyrate 25 37.834 5.766 mg In Empty Bag 1 bag @ 1 MG/HR 2 mls/hr IV .Q24H [facility] Rx#:[id number] Mvi, Adult No.4 with Vit 965 K 10 ml Trace (Conc-1Ml/ Dose) 1 ml Sodium Acetate 72 meq Potassium Chloride 14 meq Calcium Gluconate 2 gm Magnesium Sulfate gm 0.25 gm In Amino Acids 5 %/Dextrose 20 % 1,000 ml @ 75 mls/hr IV .BY DURATION NIRMAL Rx#: [id number] propofoL 1,000 mg In 116.727 196.837 82.524 Empty Bag 1 bag @ 20 MCG/ KG/MIN 9.36 mls/hr IV . [id number] [facility]AL Rx#:[id number] Hemodialysis 400 400 Output: Gastric Drainage 130 Drainage 160 160 60 Left Abdomen 40 Right Abdomen 160 120 60 Urine 1185 950 415 Hemodialysis 1900 2400 Hemodialysis Net Amount 1500 2000 Other: Voiding Method Indwelling Catheter Indwelling Catheter Indwelling Catheter ABP, PAP, CO, CI - Last Documented Arterial Blood Pressure 178/63 - Exam General: Revealed 73-year-old white male intubated, mechanically ventilated, sedated, on propofol orotracheal tube is intact, and nasogastric tube is intact Skin: Skin is warm and dry and no rashes or lesions are noted. Eye: Pupils are equal, round and reactive to light, extra-ocular movements are intact; there is normal conjunctiva bilaterally. Ears, nose, mouth and throat: There are moist mucous membranes and no oral lesions. Neck: The neck is supple, there is no tenderness or JVD. Cardiovascular: There is a regular rate and rhythm. No murmur, rub or gallop is appreciated. Respiratory: Diminished breath sounds and crackles at the bases no rhonchi no wheezes Gastrointestinal: J-tube is noted RAYA drain is noted NG tube is in place mild abdominal distention, no rebound, no guarding, no bowel sounds, no significant leak noted from the tubes in the abdomen. Musculoskeletal: No deformities and no limitation range of motion Neurological: Could not assess, patient is sedated, on propofol, will assess mental status today off propofol. Psychiatric: Could not assess. Extremities patient has 2+ bipedal edema. - Labs CBC & Chem 7: 12/03/23 05:04 12/03/23 05:04 Labs: Abnormal Lab Results - Last 24 Hours (Table) 12/02/23 12/02/23 12/03/23 Range/Units 18:15 23:31 05:04 RBC 2.94 L (4.30-5.90) m/uL Hgb 8.2 L (13.0-17.5) gm/dL Hct 25.2 L (39.0-53.0) % RDW 20.0 H (11.5-15.5) % Plt Count 65 L (150-450) k/uL Neutrophils # 7.8 H (1.3-7.7) k/uL Lymphocytes # 0.3 L (1.0-4.8) k/uL ABG HCO3 (21-25) mmol/L ABG Total CO2 (19-24) mmol/L ABG O2 Saturation (94-97) % Sodium (137-145) mmol/L BUN (9-20) mg/dL Creatinine (0.66-1.25) mg/dL Glucose (74-99) mg/dL POC Glucose (mg/dL) 157 H 194 H (70-110) mg/dL Calcium (8.4-10.2) mg/dL Phosphorus (2.5-4.5) mg/dL 12/03/23 12/03/23 12/03/23 Range/Units 05:04 06:00 12:04 RBC (4.30-5.90) m/uL Hgb (13.0-17.5) gm/dL Hct (39.0-53.0) % RDW (11.5-15.5) % Plt Count (150-450) k/uL Neutrophils # (1.3-7.7) k/uL Lymphocytes # (1.0-4.8) k/uL ABG HCO3 26 H (21-25) mmol/L ABG Total CO2 27 H (19-24) mmol/L ABG O2 Saturation 98.7 H (94-97) % Sodium 130 L (137-145) mmol/L BUN 89 H (9-20) mg/dL Creatinine 3.45 H (0.66-1.25) mg/dL Glucose 242 H (74-99) mg/dL POC Glucose (mg/dL) 204 H (70-110) mg/dL Calcium 7.2 L (8.4-10.2) mg/dL Phosphorus 4.7 H (2.5-4.5) mg/dL Assessment and Plan Assessment: Impression: Acute hypoxic respiratory failure requiring intubation mechanical ventilation secondary to aspiration. Status post J-tube placement 11/16/2023, multiple complications since then related to the J-tube placement requiring multiple surgeries. 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 Continue nasogastric tube to suction as well as the jejunostomy tube Continue TPN for nutritional support Continue Merrem, cultures were noted. Continue dialysis Continue Lasix patient is quite edematous and swollen, and in addition the patient does respond to Lasix Avoid nephrotoxic drugs Continue GI and DVT prophylaxis Patient is critically ill, updated his on his condition at bedside, touched bases with the that the patient may eventually require tracheostomy in the mean time we will continue trials of weaning and sedation interruption on a daily basis Call care time is over 30-minute Will continue to follow Time with Patient: Greater than 30
--- NOTE | 2023-12-03 14:44 | P.PN ---
Progress Note - Text Progress Note Date: 12/03/23 RAGHAV. Patient is on Spontaneous Breathing Trial and weaning from vent and on sedation holiday. He is getting dialysis today. VSS General-NAD Abdomen-soft, diffuse minimal TTP, serous drainage from midline, J tube in place to dependent drainage, RAYA-serosangenous 73-year-old male with non-Hodgkin's lymphoma of the stomach causing Gastric Outlet Obstruction. Status post J-tube placement and revision for SBO -Ok to start trickle tube feeds -Continue TPN -NGT-LIS -ICU care Dick Ewing DO [facility] [phone]
--- NOTE | 2023-12-03 14:48 | P.PN ---
Progress Note - Text Progress Note Date: 12/03/23 Chief Complaint: Aspirated This is a 73-year-old patient, follows with Dr. Patricia Deal. Patient was seen this morning in the ICU. Patient's and daughter at the bedside. History obtained predominantly by the . Patient been having trouble with his stomach symptoms for close to 8 months. Patient underwent EGD by Dr. Sahara Cheng yesterday. Patient was found to have ulcerated around the antrum and obstruction to the pylorus. A lot of retained food was found. Patient aspirated. Had to be intubated and brought to the ICU. On a Levophed drip. FiO2 50 and a PEEP of 6. Patient had been losing weight lost about 25 pounds. Previously has a history of mitral valve prolapse. November 13: ICU. Patient remains on Precedex drip and propofol drip. Did not do well attempted extubation yesterday. Patient been off Levophed. NG tube to suction. Spoke to patient's and son at the bedside. Biopsy results awaited. Hemoglobin dropped to 6.9 this morning. Get a unit of blood. November 14: ICU. Up in a chair. Extubated yesterday. NG tube to suction. at the bedside. 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 Oncology was consulted. They have ordered a port. Results discussed with Dr. Sahara Cheng. General surgery was consulted for J-tube placement. Discussed with at the bedside. Patient getting IV fluids, IV Zosyn,. Patient has been on IV amiodarone for A-fib-back in sinus rhythm. Multiple PACs. Did receive unit of blood yesterday. Also IV ferric gluconate. November 15: ICU. Patient earlier today underwent jejunostomy tube placement and a port placement. Patient awake. Answering questions. NG tube to suction present. Updated patient's . Patient remains on IV amiodarone and IV Zosyn. November 16: ICU. Up in the chair. NG tube present but not to suction. Trickle feeding through the jejunostomy tube should be started today. Dietitian has been on board. IV Zosyn to continue. Patient's and his sister at the bedside. Discussed. Also spoke with Dr. Serna. Given patient has no other predisposing cardiac factors for the A-fib except acute illness. His LV function is normal. Left atrium is normal. He has already been loaded with IV amiodarone. Will switch him to oral Lopressor 12.5 twice daily. Hence will DC amiodarone. Patient yesterday had wheezing was put on bronchodilators steroids per pulmonary. November 17: Propped up in bed. NG tube was discontinued. Sinus rhythm. Remains NPO. Getting G-tube feeding at 40 cc an hour. Dietitian following. Get arrangements done for DC home tomorrow including tube feeding. Increase activity discussed with patient and elder daughter at the bedside. Still requiring oxygen. Incentive spirometry. November 18: Patient up in recliner. Earlier today spoke to social and political studies professor David. Informed patient is rather weak and will be going to the [facility]. Looking at authorization. Denae came to the room and spoke to patient his and his daughter. They are very keen to take the patient home as 3 daughters all nurses and they will take care of him at home. Patient earlier today to abdominal cramping and some loose stools.'s tube feeding was held. Told the nurse to start back at the rate of 40 cc an hour. He was before the getting it at 55 cc an hour. Incentive spirometry was again emphasized. Patient remains on 4 L of oxygen. November 19: I saw the patient this morning. Hence I am in the evening. Morning was sitting with his sons. Has some edema. Lungs had crackles I gave him 40 mg of Lasix. He did make good urine. Tube feeding was held from the previous evening of because of abdominal cramping. Acute abdominal series showed nonspecific bowel gas pattern and SBO to be ruled out. Family and patient was updated. Told him discharge will depend on day by day. Later this afternoon CT scanAnd abdomen pelvis done. Showed small bowel to be 3 point centimeter dilated. Some anasarca. Gastric findings. Gallstones. Later spoke to Dr. Irby from general surgery. They will further review and decide about further plan of action. Will give further dose of IV Lasix because of fluid overload from likely hypoalbuminemia and IV fluids previously received. Patient may take his pills by mouth. Total time spent today about 1 hour with over 40 minutes of discussion. Patient did state his breathing is better after Lasix this morning. November 20: Saw the patient this morning. was present. Patient received 2 more doses of Lasix. Diuresed well. Breathing much better. Lungs are sounding better. Discussed with Dr. Zepeda other surgeon. He is taking 3 cc out of the balloon and the gastrostomy tube. Started trickle feeding at 5 cc an hour. Will see how this does. Later in the day ran into the and the daughter again. Did update them on the same. Dilaudid was discontinued yesterday but morphine was ordered by surgery for patient having pain. Concerns about GI issues with that we will DC the morphine. As family does not want the same. November 21: Patient reclining bed. Tired. Several family members at the bedside. Including his and eldest daughter. Patient started on trickle feed yesterday at 5 cc an hour. This morning he has been on 10 cc an hour. Still having some loose stools. C. difficile was ordered. Patient on 2 L of nasal cannula. Has diuresed well. Will give an additional dose of Lasix today. If C. difficile is negative and the diarrhea is from the tube feedings we may have to use a fecal management system to keep him comfortable. Otherwise patient remains NPO. Dietitian is following the patient. Care was discussed length with patient the and daughter at the bedside. Questions answered. Liquid Tylenol has been added for abdominal pain. Avoid narcotics. Elevated white count likely from Solu-Medrol 11/23/2023--patient was feeling better today. Multiple family member at bedside. No issues overnight. Normal saline at 10 cc an hour, tube feeding at 20 cc an hour, remains on Zosyn, on 3 L oxygen. Afebrile. Heart rate 62, respiratory rate 16, blood pressure 114/67, saturating 91% on 3 L. WBCs 14.5, 9.7 hemoglobin. Platelet 242. BMP is unremarkable. Pulmonary and general surgery following. General surgery recommended to continue tube feeds at 20 cc/h. 11/24/2023--patient reported significant abdominal discomfort, also noted to have leak around G-tube. General surgery is following, evaluated the patient at bedside, adjusted tube feeds. Also reported having diarrhea, on 2 L oxygen, went up to 5 L. Blood pressure was low, 500 mL fluid bolus with close monitoring of respiratory status ordered. Currently on DuoNebs, Solu-Medrol, will continue Zosyn. Chest x-ray showed a left lower lobe infiltrate. Abdominal x-ray showed multiple air-fluid levels. CT abdomen showed multiple dilated small bowel loops, consistent with obstruction, pneumoperitoneum, cholelithiasis and ascites. WBCs 14.1, platelet 255, hemoglobin 8.9. NG tube in place. Family at bedside. patient transferred to SICU for close monitoring. 11/25/23--patient is currently in the ICU, required Levophed overnight due to low blood pressure, low urine output with creatinine trending up. Nephrology following. Laboratory Chief also following. Patient remains n.p.o., NG tube in place, following NG tube insertion patient had total of 2 L output, J-tube was draining approximately 200 cc over last 8 hours, continues to have abdominal pain and abdominal tenderness. Patient on IV fluids. Currently on 4 L oxygen. WBCs 8.2, hemoglobin 12.3, platelet 188. Chest x-ray earlier today showed right sided port and a stable left lung airspace disease, NG tube in place. Patient currently on Zosyn, on IV Dilaudid for pain control, on IV Solu-Medrol. General surgery planning for OR today, started on TPN. 11/26/23--patient was seen and examined today. Patient is currently sedated, intubated on mechanical ventilation. Family at bedside. Patient underwent ex lap, abdominal washout, small bowel resection with new feeding jejunostomy tube placement yesterday, small bowel was noted to be perforated with significant contamination of abdominal cavity. Patient is currently on vancomycin and Zosyn. Creatinine went up to 2.85, nephrology following, recommended to continue IV fluids, avoid nephrotoxin Preserved EF on echocardiogram.. Patient currently on Levophed, vasopressin in the ICU for close monitoring. Patient is afebrile, heart rate 122, blood pressure 129/76, currently on mechanical ventilation, sedated. November 26: ICU. Intubated. FiO2 60 and a PEEP of 5. Drips include IV amiodarone. Heart rate was up early did get fired microgram of IV digoxin and 2.5 mg of IV Lopressor. Did drop her blood pressure bit. Urine output was low. Received 80 mg of IV Lasix. Ahmet to 150 cc. Other drips include IV propofol, vasopressin, Levophed. TPN was started yesterday. Antibiotics include IV Zosyn and vancomycin. Patient has a J-tube to drainage to gravity. Spoke to patient's younger daughter and at the bedside. Prognosis guarded. Continue current treatment plan. Chest x-ray shows right lower lobe consolidation. Small pleural effusion. November 27: ICU. Intubated. FiO2 55 and a PEEP of 5. Antibiotics include IV vancomycin. Drips include Levophed at a small dose, IV vasopressin, propofol, amiodarone. Patient converted to sinus rhythm this morning. Getting TPN and normal saline at 75 cc an hour. Urine output about 25 cc an hour. RAYA drain put out about 260 cc last 12 hours that is last security shift supervisor. NG tube with bilious output. And also GI J-tube output to gravity. Spoke to patient's and daughter at the bedside. They understand patient still not out of the kee. Platelets have dropped-therefore probably Zosyn stopped. November 28: ICU. Intubated. FiO2 55 and a PEEP of 5. Patient is in sinus rhythm. Seen this morning. Due for dialysis catheter this afternoon. Urine output about 15 to 20 cc an hour. Patient is on IV Lasix 80 mg every 12. Saline is KVO. Drips include IV propofol vasopressin. Patient having significant output through the RAYA drain and the jejunostomy tube to drainage. Creatinine had been getting worse. Patient's at the bedside. Understands patient's remains critically ill. Hemoglobin is down to 7. Given that patient's pain hypotensive, and on vasopressin we will give a unit of blood with dialysis. Getting TPN antibiotic changed to IV meropenem November 29: ICU. Intubated. FiO2 55 and a PEEP of 5. Remains in sinus rhythm. Getting TPN. Dialyzed yesterday and this morning. About 1000 cc removed. Urine output about 50 cc an hour. Patient is on IV propofol. Off vasopressin. Still having significant output through the RAYA drain and jejunostomy tube. Patient received a second unit of blood yesterday. Patient's and daughter at the bedside. I did discuss guarded prognosis. Did asked them to revisit CODE STATUS.. Getting IV meropenem. November 30: ICU. Intubated. Did get a sedation holiday t today. Back on propofol. Getting TPN. Still getting IV Lasix. Fair urine output. Jejunostomy tube in last 8 hours was about 30 cc output. RAYA drain in the 8 hours had about 180 cc output. Telemetry shows sinus rhythm. NG tube has low intermittent suction with negative output. On the vent with FiO2 40 and a PEEP of 5. No hemodialysis today. Discussed with the and eldest daughter at the bedside. IV meropenem-patient's sputum had grown Citrobacter freundii and Pseudomonas aeruginosa. December 01: ICU. Intubated. Jejunostomy tube to gravity. Only 10 cc output in last 24 hours. RAYA drain. About 190 cc last 6 hours. Nasogastric tube to low intermittent suction. Minimal output. Patient is on a small dose of propofol 5 mics. Telemetry shows sinus rhythm. Patient started on small dose of Cleviprex this morning. Blood pressure. Getting TPN. FiO2 35 and PEEP of 5. Discussed with the at the bedside. Hemodialysis today December 02: ICU. Patient remains intubated. FiO2 35 PEEP of 5. Patient is on IV propofol. IV Cleviprex was discontinued yesterday. Also remains on TPN. Telemetry shows sinus rhythm. NG tube is good no output. Still significant output through the RAYA drain. Jejunostomy tube has minimal output. Patient had hemodialysis today 2 L of fluid was removed. Oral half liters yesterday. Patient getting a sedation holiday. General Surgery started the patient on trickle feeding at 10 cc an hour. I did speak to patient's at the bedside. Prognosis remains guarded but there is some improvement. Active Medications Acetaminophen (Acetaminophen Tab 325 Mg Tab) 650 mg PO Q4HR PRN PRN Reason: Fever and/ or Pain Last Admin: 11/22/23 08:46 Dose: 650 mg Acetaminophen (Acetaminophen Oral Susp (Peds) 3,840 Mg/120 Ml Bottle) 480 mg PO Q4HR PRN PRN Reason: Fever Albuterol/Ipratropium (Ipratropium-Albuterol 3 Ml Neb) 3 ml INHALATION RT-QID [facility] Last Admin: 12/03/23 11:17 Dose: 3 ml Albuterol/Ipratropium (Ipratropium-Albuterol 3 Ml Neb) 3 ml INHALATION RT-Q2H PRN PRN Reason: Shortness Of Breath Or Wheezing Last Admin: 12/03/23 03:45 Dose: 3 ml Chlorhexidine Gluconate (Chlorhexidine Gluconate 15 Ml Cup) 15 ml MUCOUS MEM BID [facility] Last Admin: 12/03/23 08:46 Dose: 15 ml Dextrose/Water (Dextrose 50% Syringe 50 Ml) 25 ml IVP PER PROTOCOL PRN; Protocol PRN Reason: Hypoglycemia Dextrose/Water (Dextrose 50% Syringe 50 Ml) 50 ml IVP PER PROTOCOL PRN; Protocol PRN Reason: Hypoglycemia Furosemide (Furosemide 10 Mg/Ml 10 Ml Vial) 80 mg IV Q12H [facility] Last Admin: 12/03/23 06:26 Dose: 80 mg Propofol 1,000 mg/ IV Solution 100 mls @ 9.36 mls/hr IV .[id number] [facility]; Protocol Last Titration: 12/03/23 14:25 Dose: 40 mcg/kg/min, 18.72 mls/hr Norepinephrine Bitartrate 32 (mg/ Sodium Chloride) 250 mls @ 1.097 mls/hr IV .Q24H [facility]; Protocol Last Admin: 12/03/23 08:05 Dose: Not Given Sodium Chloride (Saline 0.9%) 1,000 mls @ 20 mls/hr IV .Q24H [facility] Last Admin: 12/02/23 17:32 Dose: 20 mls/hr Meropenem 1 gm/ Sodium (Chloride) 100 mls @ 33.333 mls/hr IVPB HS [facility] Last Admin: 12/02/23 20:42 Dose: 33.333 mls/hr Parenteral Vitamin Supplement 10 ml/ Zinc/Copper/Manganese/Selenium 1 ml/ Sodium Acetate 72 meq/ Potassium Chloride 14 meq/ Calcium Gluconate 2 gm/Magnesium Sulfate 0.25 gm/Amino Acids/Dextrose 1,074.5 mls @ 75 mls/hr IV .BY DURATION [facility] Last Admin: 12/03/23 06:21 Dose: 75 mls/hr Sodium Acetate 72 meq/Potassium Chloride 14 meq/Calcium Gluconate 2 gm/Magnesium Sulfate 0.25 gm/Amino Acids/Dextrose 1,063.5 mls @ 75 mls/hr IV .BY DURATION [facility] Clevidipine 25 mg/ IV Solution 50 mls @ 2 mls/hr IV .Q24H [facility]; Protocol Last Titration: 12/03/23 14:24 Dose: 0 mg/hr, 0 mls/hr Insulin Aspart (Insulin Aspart (Novolog) 100 Unit/Ml Vial) 0 unit SQ 0000,0600,1200,1800 [facility]; Protocol Last Admin: 12/03/23 12:32 Dose: 4 unit Insulin Detemir (Insulin Detemir (Levemir) 100 Unit/Ml Syr) 24 unit SQ DAILY@0700 [facility] Last Admin: 12/03/23 08:46 Dose: 24 unit Methylprednisolone Sodium Succinate (Methylprednisolone Sod Succi 40 Mg/Ml 1 Ml Vial) 40 mg IV DAILY@1800 [facility] Last Admin: 12/02/23 20:42 Dose: 40 mg Metoprolol Tartrate (Metoprolol Tartrate 5 Mg/5 Ml Vial) 2.5 mg IVP Q6HR PRN PRN Reason: Heart Rate - HIGH Last Admin: 11/27/23 08:25 Dose: 2.5 mg Miscellaneous Information (Magnesium Replacement Protocol 1 Each Misc) 1 each MISCELLANE DAILY PRN; Protocol PRN Reason: Per Protocol Morphine Sulfate (Morphine Sulfate 2 Mg/Ml Syringe) 1 mg IVP Q4HR PRN PRN Reason: Pain Control Last Admin: 12/01/23 16:12 Dose: 1 mg Morphine Sulfate (Morphine Sulfate 2 Mg/Ml Syringe) 2 mg IVP Q4HR PRN PRN Reason: Pain/Discomfort Last Admin: 12/03/23 03:06 Dose: 2 mg Naloxone HCl (Naloxone 0.4 Mg/Ml 1 Ml Vial) 0.2 mg IV Q2M PRN PRN Reason: Opioid Reversal Pantoprazole Sodium (Pantoprazole 40 Mg/10 Ml Vial) 40 mg IVP BID [facility] Last Admin: 12/03/23 08:45 Dose: 40 mg Past medical history to include: GERD Social history: . No smoking. Physical examination: VITAL SIGNS: 98.2, 74, 25, 117/62, 99% GENERAL: Sedated, right chest wall port EYES: Pupils equal. Conjunctiva edouard l. HEENT: External appearance of nose and ears normal, oral cavity-endotracheal tube. NG tube-low intermittent suction NECK: JVD unable to assess; masses not palpable. HEART: First and second heart sounds are normal; edema, present LUNGS: Respiratory rate increased, decreased breath sounds ABDOMEN: Soft, nontender, liver spleen not palpable, no masses palpable..jejunostomy tube-attached to gravity. RAYA drain. Incision with stitches PSYCH: Sedated INVESTIGATIONS, reviewed in the clinical context: December 02: White count 8.5 hemoglobin 8.2 platelets 65 sodium 130 potassium 3.9 BUN 89 creatinine 3.45 December 01: White count 10.3 hemoglobin 8.6 platelets 74 sodium 131 potassium 4 BUN 111 creatinine 4.02 November 30: White count 11.4 hemoglobin 8.1 platelets 46 sodium 131 potassium 3.7 BUN 84 creatinine 3.61 albumin 1.9 Sputum culture: [November 25]: Citrobacter freundii. Pseudomonas aeruginosa November 29: White count 10.8 hemoglobin 8.1 platelets 41 potassium 4.3 BUN 93 creatinine 3.61 November 28: White count 8.1 hemoglobin 7 platelets 32 sodium 140 potassium 4.4 BUN 106 creatinine 5.38 albumin 1.9 November 27: White 11.2 hemoglobin 7.9 platelets 46 potassium 4.3 BUN 93 creatinine 4.81 November 26: White count 13 hemoglobin 9.4 platelets sodium 140 potassium 4.4 BUN 83 creatinine 3.71 calcium 6.1 albumin 2.1 November 20: White count 14.4 hemoglobin 8.8 platelets 229 potassium 4.1 BUN [address] scan abdomen [November 19] possible small bowel obstruction Stool: C. difficile negative November 16: White count 9.1 hemoglobin 7.9 platelets 259 potassium 4.3 creatinine 0.92 November 15: WBC 13 hemoglobin 7.7 platelets 248 potassium 4.3 creatinine 0.87 2D echo: EF 55 to 60%. November 14: White count 10.7 hemoglobin 7.5 platelets 239 potassium 4.2 creatinine 0.96 Kidneys bladder: Unremarkable November 13: White count 12 hemoglobin 6.9 platelets 276 potassium 4.4 creatinine 1.21 magnesium 1.8 iron 6 TIBC 365% saturation 1.64 transferrin 261 ferritin 34.6 B12 569 folate 4.4 November 12: White count 14 hemoglobin 7.6 platelets 333 sodium 136 BUN 26 creatinine 1.57 November 11: Creatinine 0.86 EGD: Large amount of retained solid liquid food noted in the stomach. Large superficial gastric antral ulceration involving most of the antrum extending into the pylorus causing pyloric stenosis. Biopsies were obtained. Chest x-ray film personally reviewed by me-scattered infiltrates Assessment plan: -Aspiration pneumonitis bilateral from retained gastric contents mostly food and liquids, causing acute hypoxic respiratory failure: Subsequent sputum culture November 25: Citrobacter freundii, Pseudomonas aeruginosa IV meropenem Pulmonary following -Acute pulmonary edema and fluid overload from hypoalbuminemic state and fluids from IV.:: Has been getting Lasix and dialysis -Small l bowel perforation at site of jejunostomy tube tip with balloon..: Portion of small bowel resected. On November 24. New J-tube was placed.- dr garcia to gravity:-Minimal output Trickle feeding 10 cc an hour started today by surgery -Acute kidney injury. Possible ATN from hypotensive shock: Slow to respond Renal ultrasound unremarkable. Started on renal replacement therapy on November 28. Followed by nephrology -Nutrition Jejunostomy tube placed November [address] Ewing Getting TPN. Trickle feeds 10 cc an hour started -Acute recurrent atrial fibrillation-converted to sinus rhythm Received IV amiodarone. Cardiology following Lopressor -Acute hypoxic respiratory failure from aspiration pneumonia, status post ventilator assisted: Reintubated November 25. FiO2 50 PEEP of 5 Getting sedation holiday -Hypertension Patient started on Cleviprex-discontinued -Normocytic anemia likely to secondary underlying lymphoma. Also anemia of blood draw. Iron deficiency anemia Received 2 unit of blood. IV iron. -Severe thrombocytopenia. Would consider coagulation disorder secondary to infection., In the setting of underlying lymphoma.: Slow to respond Hematology following. -Acute blood loss anemia, Received 2 units of blood -GERD PPI -Acute diarrhea secondary to tube feeding.: Resolved C. difficile ruled out. -Large superficial gastric antral ulceration involving the gastric antrum extending into the pylorus with gastric outlet obstruction. 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 Port placed. For outpatient PET scan. -Full code Discussed with the at the bedside. Trickle feeding started today. Hemodialyzed today. Prognosis still guarded. Past Medical History Past Medical History: GERD/Reflux History of Any Multi-Drug Resistant Organisms: None Reported Past Surgical History: Heart Catheterization Additional Past Surgical History / Comment(s): colonsocopy,spinal injection, Past Anesthesia/Blood Transfusion Reactions: No Reported Reaction Past Psychological History: No Psychological Hx Reported Smoking Status: Never smoker Past Alcohol Use History: None Reported Past Drug Use History: None Reported
[2023-12-03 17:40] LABS: Glucose,Whole Blood 177 mg/dL (70-110)
[2023-12-03 23:39] LABS: Glucose,Whole Blood 204 mg/dL (70-110)
[2023-12-04 04:35] LABS: Anisocytosis Slight; Basophils % (A) 0 %; Eosinophils % (A) 0 %; HCT 24.6 % (39.0-53.0); HGB 7.7 gm/dL (13.0-17.5); Hypochromasia Moderate; Lymphocytes # (A) 0.5 k/uL (1.0-4.8); Lymphocytes % (A) 7 %; MCH 27.1 pg (25.0-35.0); MCHC 31.3 g/dL (31.0-37.0); MCV 86.6 fL (80.0-100.0); Mean Platelet Volume 11.5; Monocytes # (A) 0.4 k/uL (0-1.0); Monocytes % (A) 5 %; Neutrophils # (A) 6.1 k/uL (1.3-7.7); Neutrophils % (A) 86 %; RBC 2.84 m/uL (4.30-5.90); RDW 19.7 % (11.5-15.5); WBC 7.1 k/uL (3.8-10.6)
[2023-12-04 04:37] LABS: Platelet Count 75 k/uL (150-450)
[2023-12-04 04:49] LABS: African American GFR (CKD) 20 (>60 ml/min/1.73 sqM); Anion Gap 8 mmol/L; Blood Urea Nitrogen 77 mg/dL (9-20); Calcium 7.2 mg/dL (8.4-10.2); Carbon Dioxide 27 mmol/L (22-30); Chloride 97 mmol/L (98-107); Glucose 237 mg/dL (74-99); Magnesium 1.9 mg/dL (1.6-2.3); Non-African American GFR(CKD) 18 (>60 ml/min/1.73 sqM); Phosphorus 4.7 mg/dL (2.5-4.5); Sodium 132 mmol/L (137-145)
[2023-12-04 05:25] LABS: ABG Base Excess 2.3 mmol/L; ABG HCO3 26 mmol/L (21-25); ABG Oxygen Saturation 99.5 % (94-97); ABG PCO2 38 mmHg (35-45); ABG PH 7.45 (7.35-7.45); ABG PO2 112 mmHg (83-108); ABG TCO2 28 mmol/L (19-24); Allen Test Performed? Yes
[2023-12-04 06:01] LABS: Glucose,Whole Blood 248 mg/dL (70-110)
--- NOTE | 2023-12-04 08:01 | XR ---
EXAMINATION TYPE: XR chest 1V portable DATE OF EXAM: 12/04/2023 COMPARISON: 12/03/2023 HISTORY: SOB, Follow Up FINDINGS: Indwelling tubes and catheters are unchanged. No change in bibasilar opacities. Stable appearance of the cardio-mediastinal structures at this time. Pleural effusion unchanged. IMPRESSION: 1. Stable portable chest. Clinical correlation and follow up until resolution is recommended. [facility], , 12/04/2023 7:59 AM
[2023-12-04] MEDS: DEXMEDETOMIDINE/0.9% NACL(PMX) 400 MCG in EMPTY BAG 1 BAG IV SCH (10:28)
[2023-12-04 11:42] LABS: Glucose,Whole Blood 189 mg/dL (70-110)
[2023-12-04] MEDS: MAGNESIUM SULFATE-D5W PMX 1 GM in DEXTROSE/WATER 1 100ML.BAG IVPB ONE (12:10)
[2023-12-04] MEDS: NOREPINEPHRINE 8 MG in SODIUM CHLORIDE 0.9% 250 ML IV SCH (13:41)
--- NOTE | 2023-12-04 13:41 | P.PN ---
Subjective Patient is seen for follow-up for acute kidney injury. status post hemodialysis yesterday with UF of 2 L. Patient remains on the vent. Sedation is being decreased. urine output at 50-100 mL per hour. Edema has improved. Objective - Vital Signs Vital signs: Vital Signs Temp 97.7 F 12/04/23 12:00 Pulse 64 12/04/23 12:00 Resp 20 12/04/23 12:00 BP 92/55 12/04/23 12:00 Pulse Ox 99 12/04/23 12:00 FiO2 35 12/04/23 12:00 Intake & Output 12/03/23 12/04/23 12/04/23 18:59 06:59 18:59 Intake Total 4788.595 7710.663 293.697 Output Total 5330 1175 550 Balance -3771.459 597.663 -256.303 Weight 109.7 kg 109.7 kg Intake: IV 1016 491 75 0.9 KVO 110 130 60 Meropenem 1 gm In Sodium 100 Chloride 0.9% 100 ml @ 33 .333 mls/hr IVPB HS [facility] Rx#:[id number] Normal Saline Pressure 6 36 15 Saline Sodium Acetate 60 meq 900 225 Potassium Chloride 14 meq Calcium Gluconate 1.5 gm Magnesium Sulfate gm 0. 25 gm In Amino Acids 5 %/ Dextrose 20 % 1,000 ml @ 75 mls/hr IV .BY DURATION [facility] Rx#:[id number] Intake, IV Titration 527.699 9774.663 218.697 Amount Clevidipine Butyrate 25 8.732 mg In Empty Bag 1 bag @ 1 MG/HR 2 mls/hr IV .Q24H [facility] Rx#:[id number] Dexmedetomidine/0.9% NaCl 28.568 (Pmx) 400 mcg In Empty Bag 1 bag @ 0.2 MCG/KG/HR 5.485 mls/hr IV .[id number] [facility] Rx#:[id number] Magnesium Sulfate-D5w Pmx 100 1 gm In Dextrose/Water 1 100ml.bag @ 100 mls/hr IVPB ONCE ONE Rx#: [id number] Mvi, Adult No.4 with Vit 1027.5 K 10 ml Trace (Conc-1Ml/ Dose) 1 ml Sodium Acetate 72 meq Potassium Chloride 14 meq Calcium Gluconate 2 gm Magnesium Sulfate gm 0.25 gm In Amino Acids 5 %/Dextrose 20 % 1,000 ml @ 75 mls/hr IV .BY DURATION [facility] Rx#: [id number] propofoL 1,000 mg In 133.809 254.163 90.129 Empty Bag 1 bag @ 20 MCG/ KG/MIN 9.36 mls/hr IV . [id number] [facility] Rx#:[id number] Hemodialysis 400 Output: Gastric Drainage 15 Drainage 140 60 Right Abdomen 140 60 Urine 775 1115 550 Hemodialysis 2400 Hemodialysis Net Amount 1999 Other: Voiding Method Indwelling Catheter Indwelling Catheter Indwelling Catheter ABP, PAP, CO, CI - Last Documented Arterial Blood Pressure 99/47 - Exam patient is sedated and on the vent. Examination of the heart S1 and S2 Examination of the lungs bilateral breath sounds are heard Abdomen is soft dressed, RAYA drain noted Examination of lower extremities shows edema 2+ with significant scrotal edema, improving - Labs CBC & Chem 7: 12/04/23 04:10 12/04/23 04:10 Labs: Abnormal Lab Results - Last 24 Hours (Table) 12/03/23 12/03/23 12/04/23 Range/Units 17:38 23:38 04:10 RBC 2.84 L (4.30-5.90) m/uL Hgb 7.7 L (13.0-17.5) gm/dL Hct 24.6 L (39.0-53.0) % RDW 19.7 H (11.5-15.5) % Plt Count 75 L (150-450) k/uL Lymphocytes # 0.5 L (1.0-4.8) k/uL ABG pO2 (83-108) mmHg ABG HCO3 (21-25) mmol/L ABG Total CO2 (19-24) mmol/L ABG O2 Saturation (94-97) % Sodium (137-145) mmol/L Chloride (98-107) mmol/L BUN (9-20) mg/dL Creatinine (0.66-1.25) mg/dL Glucose (74-99) mg/dL POC Glucose (mg/dL) 177 H 204 H (70-110) mg/dL Calcium (8.4-10.2) mg/dL Phosphorus (2.5-4.5) mg/dL 12/04/23 12/04/23 12/04/23 Range/Units 04:10 04:58 05:58 RBC (4.30-5.90) m/uL Hgb (13.0-17.5) gm/dL Hct (39.0-53.0) % RDW (11.5-15.5) % Plt Count (150-450) k/uL Lymphocytes # (1.0-4.8) k/uL ABG pO2 112 H (83-108) mmHg ABG HCO3 26 H (21-25) mmol/L ABG Total CO2 28 H (19-24) mmol/L ABG O2 Saturation 99.5 H (94-97) % Sodium 132 L (137-145) mmol/L Chloride 97 L (98-107) mmol/L BUN 77 H (9-20) mg/dL Creatinine 3.32 H (0.66-1.25) mg/dL Glucose 237 H (74-99) mg/dL POC Glucose (mg/dL) 248 H (70-110) mg/dL Calcium 7.2 L (8.4-10.2) mg/dL Phosphorus 4.7 H (2.5-4.5) mg/dL 12/04/23 Range/Units 11:40 RBC (4.30-5.90) m/uL Hgb (13.0-17.5) gm/dL Hct (39.0-53.0) % RDW (11.5-15.5) % Plt Count (150-450) k/uL Lymphocytes # (1.0-4.8) k/uL ABG pO2 (83-108) mmHg ABG HCO3 (21-25) mmol/L ABG Total CO2 (19-24) mmol/L ABG O2 Saturation (94-97) % Sodium (137-145) mmol/L Chloride (98-107) mmol/L BUN (9-20) mg/dL Creatinine (0.66-1.25) mg/dL Glucose (74-99) mg/dL POC Glucose (mg/dL) 189 H (70-110) mg/dL Calcium (8.4-10.2) mg/dL Phosphorus (2.5-4.5) mg/dL Assessment and Plan Assessment: 1. Acute kidney injury secondary to ATN secondary to septic shock. Creatinine 0.86 on admission and up to 5.38 dated November 29, 2023. nonoliguric. UA fairly benign. No hydronephrosis noted on imaging. Started hemodialysis on 11/29/2023 for worsening volume status and acute kidney injury. 2. Perforated small bowel status post exploratory laparotomy with abdominal washout, small bowel resection and J-tube replacement November 25, 2023. 3. A-fib with RVR. s/p amiodarone drip. Also received digoxin this admission. 4. Recently diagnosed gastric B-cell lymphoma. 5. Septic shock. Likely abdominal source. On IV antibiotics. Off vasopressors now. 6. Hypocalcemia secondary to acute kidney injury. Replaced. Improved. 7. Metabolic acidosis secondary to acute kidney injury. Improved. 8. Volume overload Plan: Repeat hemodialysis today Continue with IV Lasix Continue TPN Repeat labs in a.m.
--- NOTE | 2023-12-04 15:37 | P.PN ---
Subjective Progress Note Date: 12/04/23 Principal diagnosis: Acute hypoxic respiratory failure requiring intubation mechanical ventilation secondary to aspiration. This is a 73-year-old white male with history of chronic abdominal pain for the last 8 months has been treated with Protonix 40 mg daily for the last 3 months with no improvement. Patient had a 22 pound weight loss in the last [address] of the abdomen and pelvis 3 weeks ago showed thickening of the antral wall with pathological adenopathy posterior to the stomach suspicious of neoplasm. Today the patient underwent elective upper endoscopy to evaluate further, patient received IV sedation by anesthesia endoscope was inserted into the mouth, esop hagus was intubated without any difficulty there was evidence of large amount of liquid and solid food noted in the stomach suggestive of gastric outlet obstruction. Scope could not be advanced through the pylorus, however in the prepyloric area there was a large superficial ulceration identified with multiple biopsies were done from this area. The body cardia and fundus could not adequately visualize because of large amount of retained food in the stomach. Scope was withdrawn back to the stomach and upon careful examination the mucosa of the antrum body and cardia as well as the fundus appeared normal. Procedure was being performed and biopsies were done patient threw up and subsequently became hypoxic there was clearly evidence of witnessed aspiration anesthesia intubated the patient, procedure was terminated, and the patient was transferred to the ICU, this consult was initiated. Patient is now on assist- control rate of 20 tidal volume 500 FiO2 70% PEEP of 10 ABG is pending, earlier ABG showed profound hypoxia patient is on propofol at 50 mcg/kg/min, next ABG is pending. Chest x-ray showed chronic changes without evidence of acute pulmonary disease. Patient was evaluated today on 11/17/2023, patient underwent uneventful placement of a jejunostomy tube yesterday, in the ICU on 5 L, patient is relatively stable, not in any distress, patient continues to have nasogastric tube in place although he did have a J-tube placed yesterday. Patient was seen by oncology for his non-Hodgkin's lymphoma involving the gastric outlet. Today's x-ray showed evidence of pneumonia/bilateral interstitial infiltrate/edema patient was given a dose of Lasix, I reminded the patient had an aspiration episode which was significant. And he required intubation mechanical ventilation for a few days.WBC count today is 9.1 hemoglobin 7.9 electrolytes are normal renal profile is normal hence I plan to transfer the patient out of the ICU to a cardiac floor. And hopefully discharge planning in the next 2 days for On 11/29/2023, the patient is being seen for a follow-up. Remains intubated on the mechanical ventilator. The patient sedated on propofol which is running at 35 mcg/kg/min. Synchronous with mechanical ventilator. On today's evaluation, he is on assist-control mode with rate of 28, tidal volume of 550, FiO2 55% with a PEEP of 5. Chest x-ray shows lower lobe consolidation bilaterally worse on the right and the orotracheal tube is in good location. The blood gas showed a pH of 7.34 with a pCO2 of 35 and a pO2 of 84. No significant orotracheal secretions. Hemodynamically improved compared to yesterday. In fact, the patient is on minimal norepinephrine that was discontinued earlier this morning. The patient has converted to normal sinus rhythm. Remains on amiodarone at 0.5 mg/min. Overall fluid balance over the past 24 hours is 2.4 L positive. Urine output has been adequate and the patient is currently on IV Lasix. Nevertheless, the patient has developed progressive worsening renal function. Creatinine is up to 5.3 on today's evaluation with a potassium level of 4.4. Serum bicarb is at 18 with an anion gap of 9. WBC count is at 8.1 with a hemogl obin of 7 and a platelet count of 32 which has dropped compared to earlier evaluation. The rest of the coagulation profile was normal from 11/28/2023. Fibrinogen level is slightly elevated. Sputum samples have shown a combination of Citrobacter and Pseudomonas aeruginosa. Based on cultures and sensitivities, the patient will be taken off his IV Zosyn and he will be switched to IV meropenem. Output from the J-tube is fecal. Output from the NG tube is gastric and surgical wound site is dry clean and intact. He is afebrile for now. Hemodynamically, the patient is doing better. He remains on TPN for nutritional support. IV fluids are also running at a rate of 75 cc an hour. Remains on vancomycin. 11/22/2023, the patient is being seen for a follow-up. The patient remains on propofol at 50 mcg/kg/min. Ventilator settings are essentially unchanged. The patient remains on assist-control mode with rate of 18, tidal volume of 400, FiO2 50% with a PEEP of 5. The blood gas showed a pH of 7.37 with a pCO2 of 43 and pO2 of 127. Chest x-ray shows no significant interval change. Patient remains on normal saline at rate of 75 cc an hour and TPN at rate of 35 cc an hour. Fluid balance is positive. Hemodialysis was performed yesterday and the second session of hemodialysis to be done today. The patient's urine output is in the order of 20 to 30 cc an hour. The patient has an NG output of 350 cc for yesterday and the drainage from the J-tube is in the order of 400 cc over the past 24 hours. The blood work shows a WBC count of 10.8, hemoglobin 8.1 and platelet count of 41. Platelet counts are essentially stable and slightly improved compared to yesterday. The sodium level is at 133, potassium is at 4.3, BUN is 93 with a creatinine of 3.6. LFTs are within normal limits. Albumin is down to 2.1. The patient is currently on no pressors. Norepinephrine and vasopressin are both discontinued and the patient remains in normal sinus rhythm. No other significant events overnight. Family has been updated on his condition. Antibiotic coverage is currently with IV meropenem. Vancomycin and Zosyn have been both discontinued. On 12/01/2023, the patient remains sedated on propofol which is running at 25 mcg/kg/min., Comfortable and synchronous mechanical ventilator. The patient remains on assist-control mode rate of 28, tidal volume of 550, FiO2 40% and PEEP of 5. Blood gas shows a pH of 7.49 with a pCO2 of 34 and pO2 of 121. Patient underwent hemodialysis yesterday. No plans for hemodialysis today the patient is producing urine output. Remains on TPN for nutrition support rate of 75 cc an hour. IV fluids are currently at KVO. The chest x-ray from today shows bilateral lower lobe consolidation worse on the right. No significant change in the volume status. The patient continues to have third spacing and edema in all 4 extremities. Nevertheless, urine output is adequate at this point in time and the patient remains on Lasix 80 mg IV every 12 hours. Remains NPO. NG tube and J-tube are both drainage. Output is noted. Remains on IV meropenem. Afebrile. Currently on no pressors. Blood work shows a WBC count of 11.4, hemoglobin of 8.1 and platelet count of 46. Sodium is at 131, potassium level is at 3.7, chloride 101 and bicarb is at 24. BUN is 84 with a creatinine of 3.6. Glucose of 228. LFTs are within normal limits. Patient was reevaluated today on 12/02/23, patient remains in the ICU, patient is familiar to my service, I saw this patient 3 weeks ago. Since then he had a very complicated hospital course, related to his jejunostomy tube dislodging and leaking and picture of abdominal sepsis and worsening pneumonia/ARDS. Patient had to be placed back on mechanical ventilation, and he is now intubated and mechanically ventilated. He is on assist-control rate of 20 tidal volume 550 FiO2 40% PEEP of 5 ABG showed a pO2 of 111 pCO2 38 pH of 7.43 and I cut down his FiO2 to 35% and increase his flow rate from 60-70. Patient remains on TPN at 75 cc/h he is on propofol at 25 mcg/kg/min patient is on Cleviprex which I added today for elevated blood pressure. Receiving Lasix 80 mg every 12 hours is also on Merrem as per infectious disease. Patient is on hemodialysis and being followed by nephrology. Patient required multiple abdominal surgeries since his initial admission. Chest x-ray continues to show worsening pneumonia involving both lungs, right more so than left, I suspect there may be a component of ARDS. His initial presentation was the presentation of aspiration pneumonia to begin with and that was 3 weeks agoWBC count is 10.3 hemoglobin 8.6 sodium 131 potassium 4 chloride 100 bicarb 23 BUN is 111 creatinine 4.02 blood sugar is 248. Albumin is 1.9 Patient was evaluated today on , patient remains in the ICU, intubated and mechanically ventilated. Patient is on assist-control rate of 20 tidal volume 550 FiO2 35% and PEEP of 5 ABG showed a pO2 of 99 pCO2 39 pH of 7.44 patient is undergoing hemodialysis today, and the plan is to remove 2 L. He is remains on propofol at 35 mcg/kg/min, remains on TPN at 75 cc/h. Remains on Merrem. Patient is not requiring any pressors today. Yesterday patient did not tolerate to be off sedation long enough, and today we tried the same sedation in terruption, and the patient did not do well post interruption of sedation, became extremely agitated restless, tachycardic, and could not fully assess mental status off sedation. Hence the patient was placed back on AC mode of mechanical ventilation, and the plan is to continue the same supportive care measures. Family updated on his condition and most likely the patient will end up requiring tracheostomy in the next few days.WBC count is 8.5 hemoglobin 8.2 basic metabolic profile is relatively unremarkable BUN is 89 creatinine 3.45 chest x-ray today showed stable chest, suspect some right-sided pleural effusion which would likely improve with hemodialysis/ultrafiltration. X-ray of abdomen showed nonspecific nonobstructive bowel gas pattern Patient was seen today on 12/04/2023, remains in the ICU, intubated mechanically ventilated, on assist-control rate of 20 tidal volume 550 FiO2 35% PEEP of 5 ABG showed a pO2 of 112 pCO2 38 pH of 7.45, hence no changes were made in ventilator settings. Patient is on propofol at 35 mcg/kg/min he is also on IV fluid at KVO TPN at 75 cc/h. Remains on hemodialysis remains on Lasix 80 mg IV push twice daily, remains on Merrem. This x-ray continues to show the same findings/airspace disease in both lungs, not much of a change in the last 2 day s, however his oxygenation seems to be improved. WBC count is 7.1 hemoglobin 7.7. Electrolytes are normal, BUN is elevated 77 creatinine 3.32, patient is on hemodialysis. His condition was discussed today with the at bedside, and I do not believe the patient is ready to be weaned or extubated, however he seems to get extremely agitated when he goes off propofol, today I plan to transition propofol to Precedex, give him a trial on Precedex and determine whether the patient becomes more appropriate and at least ready for any weaning trials. Clinically I doubt if this will happen but we will go ahead and try Objective - Vital Signs Vital signs: Vital Signs Temp 97.7 F 12/04/23 12:00 Pulse 70 12/04/23 15:26 Resp 20 12/04/23 15:00 BP 154/92 12/04/23 15:00 Pulse Ox 100 12/04/23 15:00 FiO2 35 12/04/23 15:06 Intake & Output 10/01/24 10/02/24 10/02/24 18:59 06:59 18:59 Intake Total 4925.572 8986.663 367.139 Output Total 5330 1175 800 Balance -3771.459 597.663 -432.861 Weight 109.7 kg 109.7 kg Intake: IV 1016 491 114 0.9 KVO 110 130 90 Meropenem 1 gm In Sodium 100 Chloride 0.9% 100 ml @ 33 .333 mls/hr IVPB HS [facility] Rx#:[id number] Normal Saline Pressure 6 36 24 Saline Sodium Acetate 60 meq 900 225 Potassium Chloride 14 meq Calcium Gluconate 1.5 gm Magnesium Sulfate gm 0. 25 gm In Amino Acids 5 %/ Dextrose 20 % 1,000 ml @ 75 mls/hr IV .BY DURATION [facility] Rx#:[id number] Intake, IV Titration 663.336 3691.663 253.139 Amount Clevidipine Butyrate 25 8.732 mg In Empty Bag 1 bag @ 1 MG/HR 2 mls/hr IV .Q24H [facility] Rx#:[id number] Dexmedetomidine/0.9% NaCl 56.908 (Pmx) 400 mcg In Empty Bag 1 bag @ 0.2 MCG/KG/HR 5.485 mls/hr IV .[id number] [facility] Rx#:[id number] Magnesium Sulfate-D5w Pmx 100 1 gm In Dextrose/Water 1 100ml.bag @ 100 mls/hr IVPB ONCE ONE Rx#: [id number] Mvi, Adult No.4 with Vit 1027.5 K 10 ml Trace (Conc-1Ml/ Dose) 1 ml Sodium Acetate 72 meq Potassium Chloride 14 meq Calcium Gluconate 2 gm Magnesium Sulfate gm 0.25 gm In Amino Acids 5 %/Dextrose 20 % 1,000 ml @ 75 mls/hr IV .BY DURATION [facility]MAL Rx#: [id number] Norepinephrine 8 mg In 4.776 Sodium Chloride 0.9% 250 ml @ 0.03 MCG/KG/MIN 6. 368 mls/hr IV .Q24H [facility] Rx#:[id number] propofoL 1,000 mg In 133.809 254.163 91.455 Empty Bag 1 bag @ 20 MCG/ KG/MIN 9.36 mls/hr IV . [id number] [facility] Rx#:[id number] Hemodialysis 400 Output: Gastric Drainage 15 Drainage 140 60 Right Abdomen 140 60 Urine 775 1115 800 Hemodialysis 2400 Hemodialysis Net Amount 1999 Other: Voiding Method Indwelling Catheter Indwelling Catheter Indwelling Catheter ABP, PAP, CO, CI - Last Documented Arterial Blood Pressure 153/74 - Exam General: Revealed 73-year-old white male intubated, mechanically ventilated, sedated, on propofol orotracheal tube is intact, and nasogastric tube is intact Skin: Skin is warm and dry and no rashes or lesions are noted. Eye: Pupils are equal, round and reactive to light, extra-ocular movements are intact; there is normal conjunctiva bilaterally. Ears, nose, mouth and throat: There are moist mucous membranes and no oral lesions. Neck: The neck is supple, there is no tenderness or JVD. Cardiovascular: There is a regular rate and rhythm. No murmur, rub or gallop is appreciated. Respiratory: Diminished breath sounds and crackles at the bases no rhonchi no wheezes Gastrointestinal: J-tube is noted RAYA drain is noted NG tube is in place mild abdominal distention, no rebound, no guarding, no bowel sounds, no significant leak noted from the tubes in the abdomen. Musculoskeletal: No deformities and no limitation range of motion Neurological: Could not assess, patient is sedated, on propofol, will assess mental status today off propofol. Psychiatric: Could not assess. Extremities patient has 2+ bipedal edema. - Labs CBC & Chem 7: 12/04/23 04:10 12/04/23 04:10 Labs: Abnormal Lab Results - Last 24 Hours (Table) 12/03/23 12/03/23 12/04/23 Range/Units 17:38 23:38 04:10 RBC 2.84 L (4.30-5.90) m/uL Hgb 7.7 L (13.0-17.5) gm/dL Hct 24.6 L (39.0-53.0) % RDW 19.7 H (11.5-15.5) % Plt Count 75 L (150-450) k/uL Lymphocytes # 0.5 L (1.0-4.8) k/uL ABG pO2 (83-108) mmHg ABG HCO3 (21-25) mmol/L ABG Total CO2 (19-24) mmol/L ABG O2 Saturation (94-97) % Sodium (137-145) mmol/L Chloride (98-107) mmol/L BUN (9-20) mg/dL Creatinine (0.66-1.25) mg/dL Glucose (74-99) mg/dL POC Glucose (mg/dL) 177 H 204 H (70-110) mg/dL Calcium (8.4-10.2) mg/dL Phosphorus (2.5-4.5) mg/dL 12/04/23 12/04/23 12/04/23 Range/Units 04:10 04:58 05:58 RBC (4.30-5.90) m/uL Hgb (13.0-17.5) gm/dL Hct (39.0-53.0) % RDW (11.5-15.5) % Plt Count (150-450) k/uL Lymphocytes # (1.0-4.8) k/uL ABG pO2 112 H (83-108) mmHg ABG HCO3 26 H (21-25) mmol/L ABG Total CO2 28 H (19-24) mmol/L ABG O2 Saturation 99.5 H (94-97) % Sodium 132 L (137-145) mmol/L Chloride 97 L (98-107) mmol/L BUN 77 H (9-20) mg/dL Creatinine 3.32 H (0.66-1.25) mg/dL Glucose 237 H (74-99) mg/dL POC Glucose (mg/dL) 248 H (70-110) mg/dL Calcium 7.2 L (8.4-10.2) mg/dL Phosphorus 4.7 H (2.5-4.5) mg/dL 12/04/23 Range/Units 11:40 RBC (4.30-5.90) m/uL Hgb (13.0-17.5) gm/dL Hct (39.0-53.0) % RDW (11.5-15.5) % Plt Count (150-450) k/uL Lymphocytes # (1.0-4.8) k/uL ABG pO2 (83-108) mmHg ABG HCO3 (21-25) mmol/L ABG Total CO2 (19-24) mmol/L ABG O2 Saturation (94-97) % Sodium (137-145) mmol/L Chloride (98-107) mmol/L BUN (9-20) mg/dL Creatinine (0.66-1.25) mg/dL Glucose (74-99) mg/dL POC Glucose (mg/dL) 189 H (70-110) mg/dL Calcium (8.4-10.2) mg/dL Phosphorus (2.5-4.5) mg/dL Assessment and Plan Assessment: Impression: Acute hypoxic respiratory failure requiring intubation mechanical ventilation secondary to aspiration. Status post J-tube placement 11/16/2023, multiple complications since then related to the J-tube placement requiring multiple surgeries. 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 Will try the patient on Precedex and discontinue propofol hopefully we can assess or get adequate assessment of mental status off propofol. Keep patient n.p.o. Continue nasogastric tube to suction as well as the jejunostomy tube surgery on the case is considering enteral feeding through the jejunostomy tube Continue TPN for nutritional support Continue Merrem, cultures were noted. Continue dialysis Continue Lasix as long as the patient does not respond to diuretics Avoid nephrotoxic drugs Continue GI and DVT prophylaxis Discussed his condition with at bedside, and with his daughter, made aware that he is critically ill. And may eventually require tracheostomy. Critical care time is over 30 minutes Will continue to follow Time with Patient: Greater than 30
--- NOTE | 2023-12-04 16:53 | P.PN ---
Progress Note - Text Progress Note Date: 12/04/23 Chief Complaint: Aspirated This is a 73-year-old patient, follows with Dr. Patricia Deal. Patient was seen this morning in the ICU. Patient's and daughter at the bedside. History obtained predominantly by the . Patient been having trouble with his stomach symptoms for close to 8 months. Patient underwent EGD by Dr. Sahara Cheng yesterday. Patient was found to have ulcerated around the antrum and obstruction to the pylorus. A lot of retained food was found. Patient aspirated. Had to be intubated and brought to the ICU. On a Levophed drip. FiO2 50 and a PEEP of 6. Patient had been losing weight lost about 25 pounds. Previously has a history of mitral valve prolapse. November 13: ICU. Patient remains on Precedex drip and propofol drip. Did not do well attempted extubation yesterday. Patient been off Levophed. NG tube to suction. Spoke to patient's and son at the bedside. Biopsy results awaited. Hemoglobin dropped to 6.9 this morning. Get a unit of blood. November 14: ICU. Up in a chair. Extubated yesterday. NG tube to suction. at the bedside. 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 Oncology was consulted. They have ordered a port. Results discussed with Dr. Sahara Cheng. General surgery was consulted for J-tube placement. Discussed with at the bedside. Patient getting IV fluids, IV Zosyn,. Patient has been on IV amiodarone for A-fib-back in sinus rhythm. Multiple PACs. Did receive unit of blood yesterday. Also IV ferric gluconate. November 15: ICU. Patient earlier today underwent jejunostomy tube placement and a port placement. Patient awake. Answering questions. NG tube to suction present. Updated patient's . Patient remains on IV amiodarone and IV Zosyn. November 16: ICU. Up in the chair. NG tube present but not to suction. Trickle feeding through the jejunostomy tube should be started today. Dietitian has been on board. IV Zosyn to continue. Patient's and his sister at the bedside. Discussed. Also spoke with Dr. Serna. Given patient has no other predisposing cardiac factors for the A-fib except acute illness. His LV function is normal. Left atrium is normal. He has already been loaded with IV amiodarone. Will switch him to oral Lopressor 12.5 twice daily. Hence will DC amiodarone. Patient yesterday had wheezing was put on bronchodilators steroids per pulmonary. November 17: Propped up in bed. NG tube was discontinued. Sinus rhythm. Remains NPO. Getting G-tube feeding at 40 cc an hour. Dietitian following. Get arrangements done for DC home tomorrow including tube feeding. Increase activity discussed with patient and elder daughter at the bedside. Still requiring oxygen. Incentive spirometry. November 18: Patient up in recliner. Earlier today spoke to licensed clinical social worker David. Informed patient is rather weak and will be going to the [facility]. Looking at authorization. Denae came to the room and spoke to patient his and his daughter. They are very keen to take the patient home as 3 daughters all nurses and they will take care of him at home. Patient earlier today to abdominal cramping and some loose stools.'s tube feeding was held. Told the nurse to start back at the rate of 40 cc an hour. He was before the getting it at 55 cc an hour. Incentive spirometry was again emphasized. Patient remains on 4 L of oxygen. November 19: I saw the patient this morning. Hence I am in the evening. Morning was sitting with his sons. Has some edema. Lungs had crackles I gave him 40 mg of Lasix. He did make good urine. Tube feeding was held from the previous evening of because of abdominal cramping. Acute abdominal series showed nonspecific bowel gas pattern and SBO to be ruled out. Family and patient was updated. Told him discharge will depend on day by day. Later this afternoon CT scanAnd abdomen pelvis done. Showed small bowel to be 3 point centimeter dilated. Some anasarca. Gastric findings. Gallstones. Later spoke to Dr. Irby from general surgery. They will further review and decide about further plan of action. Will give further dose of IV Lasix because of fluid overload from likely hypoalbuminemia and IV fluids previously received. Patient may take his pills by mouth. Total time spent today about 1 hour with over 40 minutes of discussion. Patient did state his breathing is better after Lasix this morning. November 20: Saw the patient this morning. was present. Patient received 2 more doses of Lasix. Diuresed well. Breathing much better. Lungs are sounding better. Discussed with Dr. Zepeda other surgeon. He is taking 3 cc out of the balloon and the gastrostomy tube. Started trickle feeding at 5 cc an hour. Will see how this does. Later in the day ran into the and the daughter again. Did update them on the same. Dilaudid was discontinued yesterday but morphine was ordered by surgery for patient having pain. Concerns about GI issues with that we will DC the morphine. As family does not want the same. November 21: Patient reclining bed. Tired. Several family members at the bedside. Including his and eldest daughter. Patient started on trickle feed yesterday at 5 cc an hour. This morning he has been on 10 cc an hour. Still having some loose stools. C. difficile was ordered. Patient on 2 L of nasal cannula. Has diuresed well. Will give an additional dose of Lasix today. If C. difficile is negative and the diarrhea is from the tube feedings we may have to use a fecal management system to keep him comfortable. Otherwise patient remains NPO. Dietitian is following the patient. Care was discussed length with patient the and daughter at the bedside. Questions answered. Liquid Tylenol has been added for abdominal pain. Avoid narcotics. Elevated white count likely from Solu-Medrol 11/23/2023--patient was feeling better today. Multiple family member at bedside. No issues overnight. Normal saline at 10 cc an hour, tube feeding at 20 cc an hour, remains on Zosyn, on 3 L oxygen. Afebrile. Heart rate 62, respiratory rate 16, blood pressure 114/67, saturating 91% on 3 L. WBCs 14.5, 9.7 hemoglobin. Platelet 242. BMP is unremarkable. Pulmonary and general surgery following. General surgery recommended to continue tube feeds at 20 cc/h. 11/24/2023--patient reported significant abdominal discomfort, also noted to have leak around G-tube. General surgery is following, evaluated the patient at bedside, adjusted tube feeds. Also reported having diarrhea, on 2 L oxygen, went up to 5 L. Blood pressure was low, 500 mL fluid bolus with close monitoring of respiratory status ordered. Currently on DuoNebs, Solu-Medrol, will continue Zosyn. Chest x-ray showed a left lower lobe infiltrate. Abdominal x-ray showed multiple air-fluid levels. CT abdomen showed multiple dilated small bowel loops, consistent with obstruction, pneumoperitoneum, cholelithiasis and ascites. WBCs 14.1, platelet 255, hemoglobin 8.9. NG tube in place. Family at bedside. patient transferred to SICU for close monitoring. 11/25/23--patient is currently in the ICU, required Levophed overnight due to low blood pressure, low urine output with creatinine trending up. Nephrology following. Plant Culture Manager also following. Patient remains n.p.o., NG tube in place, following NG tube insertion patient had total of 2 L output, J-tube was draining approximately 200 cc over last 8 hours, continues to have abdominal pain and abdominal tenderness. Patient on IV fluids. Currently on 4 L oxygen. WBCs 8.2, hemoglobin 12.3, platelet 188. Chest x-ray earlier today showed right sided port and a stable left lung airspace disease, NG tube in place. Patient currently on Zosyn, on IV Dilaudid for pain control, on IV Solu-Medrol. General surgery planning for OR today, started on TPN. 11/26/23--patient was seen and examined today. Patient is currently sedated, intubated on mechanical ventilation. Family at bedside. Patient underwent ex lap, abdominal washout, small bowel resection with new feeding jejunostomy tube placement yesterday, small bowel was noted to be perforated with significant contamination of abdominal cavity. Patient is currently on vancomycin and Zosyn. Creatinine went up to 2.85, nephrology following, recommended to continue IV fluids, avoid nephrotoxin Preserved EF on echocardiogram.. Patient currently on Levophed, vasopressin in the ICU for close monitoring. Patient is afebrile, heart rate 122, blood pressure 129/76, currently on mechanical ventilation, sedated. November 26: ICU. Intubated. FiO2 60 and a PEEP of 5. Drips include IV amiodarone. Heart rate was up early did get fired microgram of IV digoxin and 2.5 mg of IV Lopressor. Did drop her blood pressure bit. Urine output was low. Received 80 mg of IV Lasix. Ahmet to 150 cc. Other drips include IV propofol, vasopressin, Levophed. TPN was started yesterday. Antibiotics include IV Zosyn and vancomycin. Patient has a J-tube to drainage to gravity. Spoke to patient's younger daughter and at the bedside. Prognosis guarded. Continue current treatment plan. Chest x-ray shows right lower lobe consolidation. Small pleural effusion. November 27: ICU. Intubated. FiO2 55 and a PEEP of 5. Antibiotics include IV vancomycin. Drips include Levophed at a small dose, IV vasopressin, propofol, amiodarone. Patient converted to sinus rhythm this morning. Getting TPN and normal saline at 75 cc an hour. Urine output about 25 cc an hour. RAYA drain put out about 260 cc last 12 hours that is last operation shift supervisor. NG tube with bilious output. And also GI J-tube output to gravity. Spoke to patient's and daughter at the bedside. They understand patient still not out of the kee. Platelets have dropped-therefore probably Zosyn stopped. November 28: ICU. Intubated. FiO2 55 and a PEEP of 5. Patient is in sinus rhythm. Seen this morning. Due for dialysis catheter this afternoon. Urine output about 15 to 20 cc an hour. Patient is on IV Lasix 80 mg every 12. Saline is KVO. Drips include IV propofol vasopressin. Patient having significant output through the RAYA drain and the jejunostomy tube to drainage. Creatinine had been getting worse. Patient's at the bedside. Understands patient's remains critically ill. Hemoglobin is down to 7. Given that patient's pain hypotensive, and on vasopressin we will give a unit of blood with dialysis. Getting TPN antibiotic changed to IV meropenem November 29: ICU. Intubated. FiO2 55 and a PEEP of 5. Remains in sinus rhythm. Getting TPN. Dialyzed yesterday and this morning. About 1000 cc removed. Urine output about 50 cc an hour. Patient is on IV propofol. Off vasopressin. Still having significant output through the RAYA drain and jejunostomy tube. Patient received a second unit of blood yesterday. Patient's and daughter at the bedside. I did discuss guarded prognosis. Did asked them to revisit CODE STATUS.. Getting IV meropenem. November 30: ICU. Intubated. Did get a sedation holiday t today. Back on propofol. Getting TPN. Still getting IV Lasix. Fair urine output. Jejunostomy tube in last 8 hours was about 30 cc output. RAYA drain in the 8 hours had about 180 cc output. Telemetry shows sinus rhythm. NG tube has low intermittent suction with negative output. On the vent with FiO2 40 and a PEEP of 5. No hemodialysis today. Discussed with the and eldest daughter at the bedside. IV meropenem-patient's sputum had grown Citrobacter freundii and Pseudomonas aeruginosa. December 01: ICU. Intubated. Jejunostomy tube to gravity. Only 10 cc output in last 24 hours. RAYA drain. About 190 cc last 6 hours. Nasogastric tube to low intermittent suction. Minimal output. Patient is on a small dose of propofol 5 mics. Telemetry shows sinus rhythm. Patient started on small dose of Cleviprex this morning. Blood pressure. Getting TPN. FiO2 35 and PEEP of 5. Discussed with the at the bedside. Hemodialysis today December 02: ICU. Patient remains intubated. FiO2 35 PEEP of 5. Patient is on IV propofol. IV Cleviprex was discontinued yesterday. Also remains on TPN. Telemetry shows sinus rhythm. NG tube is good no output. Still significant output through the RAYA drain. Jejunostomy tube has minimal output. Patient had hemodialysis today 2 L of fluid was removed. Oral half liters yesterday. Patient getting a sedation holiday. General Surgery started the patient on trickle feeding at 10 cc an hour. I did speak to patient's at the bedside. Prognosis remains guarded but there is some improvement. December 03: ICU. Intubated. FiO2 35 PEEP of 5. Drips include IV propofol and Precedex. Getting TPN. Telemetry shows sinus rhythm. Remains on IV Lasix 80 mg twice a day. IV meropenem. Because patient gets easily agitated when transitioning off propofol he has been switched over to Precedex. For hemodialysis today. Active Medications Acetaminophen (Acetaminophen Tab 325 Mg Tab) 650 mg PO Q4HR PRN PRN Reason: Fever and/ or Pain Last Admin: 11/22/23 08:46 Dose: 650 mg Acetaminophen (Acetaminophen Oral Susp (Peds) 3,840 Mg/120 Ml Bottle) 480 mg PO Q4HR PRN PRN Reason: Fever Albuterol/Ipratropium (Ipratropium-Albuterol 3 Ml Neb) 3 ml INHALATION RT-QID [facility] Last Admin: 12/04/23 15:14 Dose: 3 ml Albuterol/Ipratropium (Ipratropium-Albuterol 3 Ml Neb) 3 ml INHALATION RT-Q2H PRN PRN Reason: Shortness Of Breath Or Wheezing Last Admin: 12/03/23 03:45 Dose: 3 ml Chlorhexidine Gluconate (Chlorhexidine Gluconate 15 Ml Cup) 15 ml MUCOUS MEM BID [facility] Last Admin: 12/04/23 08:30 Dose: 15 ml Dextrose/Water (Dextrose 50% Syringe 50 Ml) 25 ml IVP PER PROTOCOL PRN; Protocol PRN Reason: Hypoglycemia Dextrose/Water (Dextrose 50% Syringe 50 Ml) 50 ml IVP PER PROTOCOL PRN; Protocol PRN Reason: Hypoglycemia Furosemide (Furosemide 10 Mg/Ml 10 Ml Vial) 80 mg IV Q12H [facility] Last Admin: 12/04/23 05:50 Dose: 80 mg Hydromorphone HCl (Hydromorphone 0.5 Mg/0.5 Ml Syringe) 0.5 mg IVP Q6HR PRN PRN Reason: Pain Propofol 1,000 mg/ IV Solution 100 mls @ 9.36 mls/hr IV .[id number] [facility]; Protocol Last Titration: 12/04/23 16:48 Dose: 0 mcg/kg/min, 0 mls/hr Sodium Chloride (Saline 0.9%) 1,000 mls @ 20 mls/hr IV .Q24H [facility] Last Admin: 12/04/23 07:00 Dose: 20 mls/hr Meropenem 1 gm/ Sodium (Chloride) 100 mls @ 33.333 mls/hr IVPB HS [facility] Last Admin: 12/03/23 19:50 Dose: 33.333 mls/hr Parenteral Vitamin Supplement 10 ml/ Zinc/Copper/Manganese/Selenium 1 ml/ Sodium Acetate 60 meq/ Sodium Chloride 32 meq / Potassium Chloride 14 meq/Calcium Gluconate 2 gm/Magnesium Sulfate 0.25 gm/Amino Acids/Dextrose 1,076.5 mls @ 75 mls/hr IV .BY DURATION [facility] Last Admin: 12/04/23 09:59 Dose: 75 mls/hr Sodium Acetate 60 meq/ Sodium Chloride 32 meq/ Potassium Chloride 14 meq/ Calcium Gluconate 2 gm/ Magnesium Sulfate 0.25 gm/ Amino Acids/Dextrose 1,065.5 mls @ 75 mls/hr IV .BY DURATION [facility] Dexmedetomidine HCl 400 mcg/ (IV Solution) 100 mls @ 5.485 mls/hr IV .[id number] [facility]; Protocol Last Titration: 12/04/23 15:06 Dose: 0.6 mcg/kg/hr, 16.455 mls/hr Norepinephrine Bitartrate 8 mg (/ Sodium Chloride) 258 mls @ 6.368 mls/hr IV .Q24H [facility]; Protocol Last Titration: 12/04/23 15:06 Dose: 0.02 mcg/kg/min, 4.245 mls/hr Insulin Aspart (Insulin Aspart (Novolog) 100 Unit/Ml Vial) 0 unit SQ 0000,0600,1200,1800 [facility]; Protocol Last Admin: 12/04/23 11:58 Dose: 2 unit Insulin Detemir (Insulin Detemir (Levemir) 100 Unit/Ml Syr) 24 unit SQ DAILY@0700 [facility] Last Admin: 12/04/23 06:03 Dose: 24 unit Methylprednisolone Sodium Succinate (Methylprednisolone Sod Succi 40 Mg/Ml 1 Ml Vial) 40 mg IV DAILY@1800 [facility] Last Admin: 12/03/23 17:44 Dose: 40 mg Metoprolol Tartrate (Metoprolol Tartrate 5 Mg/5 Ml Vial) 2.5 mg IVP Q6HR PRN PRN Reason: Heart Rate - HIGH Last Admin: 11/27/23 08:25 Dose: 2.5 mg Miscellaneous Information (Magnesium Replacement Protocol 1 Each Misc) 1 each MISCELLANE DAILY PRN; Protocol PRN Reason: Per Protocol Naloxone HCl (Naloxone 0.4 Mg/Ml 1 Ml Vial) 0.2 mg IV Q2M PRN PRN Reason: Opioid Reversal Pantoprazole Sodium (Pantoprazole 40 Mg/10 Ml Vial) 40 mg IVP BID [facility] Last Admin: 12/04/23 08:30 Dose: 40 mg Past medical history to include: GERD Social history: . No smoking. Physical examination: VITAL SIGNS: T6.9, 67, 27, 94/56, 99% on the vent GENERAL: Sedated, right chest wall port EYES: Pupils equal. Conjunctiva edouard l. HEENT: External appearance of nose and ears normal, oral cavity-endotracheal tube. NG tube-low intermittent suction NECK: JVD unable to assess; masses not palpable. HEART: First and second heart sounds are normal; edema, present LUNGS: Respiratory rate increased, decreased breath sounds ABDOMEN: Soft, nontender, liver spleen not palpable, no masses palpable..jejunostomy tube-attached to gravity. RAYA drain. Incision with stitches PSYCH: Sedated INVESTIGATIONS, reviewed in the clinical context: December 03: White count 7.1 hemoglobin 7.7 platelets 95 potassium 4 BUN 37 creatinine 3.32 December 02: White count 8.5 hemoglobin 8.2 platelets 65 sodium 130 potassium 3.9 BUN 89 creatinine 3.45 December 01: White count 10.3 hemoglobin 8.6 platelets 74 sodium 131 potassium 4 BUN 111 creatinine 4.02 November 30: White count 11.4 hemoglobin 8.1 platelets 46 sodium 131 potassium 3.7 BUN 84 creatinine 3.61 albumin 1.9 Sputum culture: [November 25]: Citrobacter freundii. Pseudomonas aeruginosa November 29: White count 10.8 hemoglobin 8.1 platelets 41 potassium 4.3 BUN 93 creatinine 3.61 November 28: White count 8.1 hemoglobin 7 platelets 32 sodium 140 potassium 4.4 BUN 106 creatinine 5.38 albumin 1.9 November 27: White 11.2 hemoglobin 7.9 platelets 46 potassium 4.3 BUN 93 creatinine 4.81 November 26: White count 13 hemoglobin 9.4 platelets sodium 140 potassium 4.4 BUN 83 creatinine 3.71 calcium 6.1 albumin 2.1 November 20: White count 14.4 hemoglobin 8.8 platelets 229 potassium 4.1 BUN [address] scan abdomen [November 19] possible small bowel obstruction Stool: C. difficile negative November 16: White count 9.1 hemoglobin 7.9 platelets 259 potassium 4.3 creatinine 0.92 November 15: WBC 13 hemoglobin 7.7 platelets 248 potassium 4.3 creatinine 0.87 2D echo: EF 55 to 60%. November 14: White count 10.7 hemoglobin 7.5 platelets 239 potassium 4.2 creatinine 0.96 Kidneys bladder: Unremarkable November 13: White count 12 hemoglobin 6.9 platelets 276 potassium 4.4 creatinine 1.21 magnesium 1.8 iron 6 TIBC 365% saturation 1.64 transferrin 261 ferritin 34.6 B12 569 folate 4.4 November 12: White count 14 hemoglobin 7.6 platelets 333 sodium 136 BUN 26 creatinine 1.57 November 11: Creatinine 0.86 EGD: Large amount of retained solid liquid food noted in the stomach. Large superficial gastric antral ulceration involving most of the antrum extending into the pylorus causing pyloric stenosis. Biopsies were obtained. Chest x-ray film personally reviewed by me-scattered infiltrates Assessment plan: -Aspiration pneumonitis bilateral from retained gastric contents mostly food and liquids, causing acute hypoxic respiratory failure: Subsequent sputum culture November 25: Citrobacter freundii, Pseudomonas aeruginosa IV meropenem Pulmonary following -Acute pulmonary edema and fluid overload from hypoalbuminemic state and fluids from IV.:: Has been getting Lasix and dialysis -Small l bowel perforation at site of jejunostomy tube tip with balloon..: Portion of small bowel resected. On November 24. New J-tube was placed.- drainage to gravity:-Minimal output Trickle feeding 10 cc an hour started today by surgery -Acute kidney injury. Possible ATN from hypotensive shock: Slow to respond Renal ultrasound unremarkable. Started on renal replacement therapy on . Followed by nephrology -Nutrition Jejunostomy tube placed November [address] Ewing Getting TPN. Trickle feeds 10 cc an hour started -Acute recurrent atrial fibrillation-converted to sinus rhythm Received IV amiodarone. Cardiology following Lopressor -Acute hypoxic respiratory failure from aspiration pneumonia, status post ventilator assisted: Reintubated November 25. FiO2 50 PEEP of 5 Getting sedation holiday -Septic shock, recovered -Hypertension Patient started on Cleviprex-discontinued -Normocytic anemia likely to secondary underlying lymphoma. Also anemia of blood draw. Iron deficiency anemia Received 2 unit of blood. IV iron. -Severe thrombocytopenia. Would consider coagulation disorder secondary to infection., In the setting of underlying lymphoma.: Slow to respond Hematology following. -Acute blood loss anemia, Received 2 units of blood -GERD PPI -Acute diarrhea secondary to tube feeding.: Resolved C. difficile ruled out. -Large superficial gastric antral ulceration involving the gastric antrum extending into the pylorus with gastric outlet obstruction. 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 Port placed. For outpatient PET scan. -Full code Hemodialysis today. Trickle feeding. Precedex added because Nelson patient off propofol gets easily agitated. Currently no family at the bedside when I saw him this afternoon. Past Medical History Past Medical History: GERD/Reflux History of Any Multi-Drug Resistant Organisms: None Reported Past Surgical History: Heart Catheterization Additional Past Surgical History / Comment(s): colonsocopy,spinal injection, Past Anesthesia/Blood Transfusion Reactions: No Reported Reaction Past Psychological History: No Psychological Hx Reported Smoking Status: Never smoker Past Alcohol Use History: None Reported Past Drug Use History: None Reported
[2023-12-04] MEDS: HYDROmorphone 0.5 MG/0.5 ML SYRINGE IVP PRN (17:01)
--- NOTE | 2023-12-04 20:52 | P.PN ---
Subjective Patient seen and evaluated at bedside. No acute events overnight, nurse reporting minimal drainage via j tube. Objective - Vital Signs Vital signs: Vital Signs Temp 98 F 12/04/23 20:02 Pulse 57 L 12/04/23 20:02 Resp 19 12/04/23 20:02 BP 139/87 12/04/23 20:02 Pulse Ox 97 12/04/23 20:00 FiO2 35 12/04/23 20:00 Intake & Output 12/04/23 12/04/23 12/05/23 06:59 18:59 06:59 Intake Total 1772.663 489.814 765.28 Output Total 1175 1095 4550 Balance 597.663 -605.186 -3784.72 Weight 109.7 kg 109.7 kg Intake: IV 491 150 95 0.9 KVO 130 120 20 Meropenem 1 gm In Sodium 100 Chloride 0.9% 100 ml @ 33 .333 mls/hr IVPB HS [facility] Rx#:[id number] Normal Saline Pressure 36 30 Saline Sodium Acetate 60 meq 225 75 Potassium Chloride 14 meq Calcium Gluconate 1.5 gm Magnesium Sulfate gm 0. 25 gm In Amino Acids 5 %/ Dextrose 20 % 1,000 ml @ 75 mls/hr IV .BY DURATION [facility] Rx#:[id number] Intake, IV Titration 1281.663 339.814 20.28 Amount Dexmedetomidine/0.9% NaCl 118.569 (Pmx) 400 mcg In Empty Bag 1 bag @ 0.2 MCG/KG/HR 5.485 mls/hr IV .[id number] [facility] Rx#:[id number] Magnesium Sulfate-D5w Pmx 100 1 gm In Dextrose/Water 1 100ml.bag @ 100 mls/hr IVPB ONCE ONE Rx#: [id number] Mvi, Adult No.4 with Vit 1027.5 K 10 ml Trace (Conc-1Ml/ Dose) 1 ml Sodium Acetate 72 meq Potassium Chloride 14 meq Calcium Gluconate 2 gm Magnesium Sulfate gm 0.25 gm In Amino Acids 5 %/Dextrose 20 % 1,000 ml @ 75 mls/hr IV .BY DURATION [facility] Rx#: [id number] Norepinephrine 8 mg In 10.719 Sodium Chloride 0.9% 250 ml @ 0.03 MCG/KG/MIN 6. 368 mls/hr IV .Q24H [facility] Rx#:[id number] propofoL 1,000 mg In 254.163 110.526 20.28 Empty Bag 1 bag @ 20 MCG/ KG/MIN 9.36 mls/hr IV . [id number] [facility] Rx#:[id number] Hemodialysis 650 Output: Gastric Drainage 0 Drainage 60 135 Left Abdomen 15 Right Abdomen 60 120 Urine 1115 960 200 Hemodialysis 2500 Hemodialysis Net Amount 1850 Other: Voiding Method Indwelling Catheter Indwelling Catheter Indwelling Catheter ABP, PAP, CO, CI - Last Documented Arterial Blood Pressure 153/74 - Exam gen: nad cv: rrr pul: non labored breathing abd: soft, non distended, surgical incision draining, j tube in place with minim al drainage. - Labs CBC & Chem 7: 12/04/23 04:10 12/04/23 04:10 Labs: Abnormal Lab Results - Last 24 Hours (Table) 12/03/23 12/04/23 12/04/23 Range/Units 23:38 04:10 04:10 RBC 2.84 L (4.30-5.90) m/uL Hgb 7.7 L (13.0-17.5) gm/dL Hct 24.6 L (39.0-53.0) % RDW 19.7 H (11.5-15.5) % Plt Count 75 L (150-450) k/uL Lymphocytes # 0.5 L (1.0-4.8) k/uL ABG pO2 (83-108) mmHg ABG HCO3 (21-25) mmol/L ABG Total CO2 (19-24) mmol/L ABG O2 Saturation (94-97) % Sodium 132 L (137-145) mmol/L Chloride 97 L (98-107) mmol/L BUN 77 H (9-20) mg/dL Creatinine 3.32 H (0.66-1.25) mg/dL Glucose 237 H (74-99) mg/dL POC Glucose (mg/dL) 204 H (70-110) mg/dL Calcium 7.2 L (8.4-10.2) mg/dL Phosphorus 4.7 H (2.5-4.5) mg/dL 12/04/23 12/04/23 12/04/23 Range/Units 04:58 05:58 11:40 RBC (4.30-5.90) m/uL Hgb (13.0-17.5) gm/dL Hct (39.0-53.0) % RDW (11.5-15.5) % Plt Count (150-450) k/uL Lymphocytes # (1.0-4.8) k/uL ABG pO2 112 H (83-108) mmHg ABG HCO3 26 H (21-25) mmol/L ABG Total CO2 28 H (19-24) mmol/L ABG O2 Saturation 99.5 H (94-97) % Sodium (137-145) mmol/L Chloride (98-107) mmol/L BUN (9-20) mg/dL Creatinine (0.66-1.25) mg/dL Glucose (74-99) mg/dL POC Glucose (mg/dL) 248 H 189 H (70-110) mg/dL Calcium (8.4-10.2) mg/dL Phosphorus (2.5-4.5) mg/dL Assessment and Plan Assessment: 73 yo male w/ dysphagia s/p j tube placement with takeback s/p small bowel resection j tube minimal output, ileus likely resolved ok to start trickle feeds talk with family extensively explaining current state Time with Patient: Greater than 30
[2023-12-05 00:03] LABS: Glucose,Whole Blood 210 mg/dL (70-110)
--- NOTE | 2023-12-05 03:03 | P.PCN ---
Date of Procedure: 12/05/23 Preoperative Diagnosis: Ventilator dependent respiratory failure, aspiration pneumonia, sepsis Postoperative Diagnosis: ventilator dependent respiratory failure, aspiration pneumonia, sepsis Procedure(s) Performed: Insertion of right wrist radial arterial line Description of Procedure: Informed consent was obtained, and a procedural timeout was performed . The patient was placed in supine position. The right radial region was prepared in a sterile fashion, and a sterile drape was applied. The right radial artery was palpated, easily cannulated, and a guidewire was placed. A Cook catheter was inserted over the guidewire, and the guidewire was removed. There was good arterial blood flow, good arterial waveform, and no complications. The line was secured with using a 3-0 silk suture.
[2023-12-05 05:08] LABS: Glucose,Whole Blood 212 mg/dL (70-110)
[2023-12-05 05:17] LABS: ABG Base Excess 3.7 mmol/L; ABG HCO3 27 mmol/L (21-25); ABG Oxygen Saturation 98.1 % (94-97); ABG PCO2 37 mmHg (35-45); ABG PH 7.48 (7.35-7.45); ABG PO2 90 mmHg (83-108); ABG TCO2 29 mmol/L (19-24); Allen Test Performed? Yes
[2023-12-05 05:21] LABS: Anisocytosis Slight; Basophils % (A) 0 %; Eosinophils % (A) 0 %; Hypochromasia Moderate; Lymphocytes # (A) 0.7 k/uL (1.0-4.8); Lymphocytes % (A) 7 %; MCH 27.3 pg (25.0-35.0); MCHC 31.9 g/dL (31.0-37.0); MCV 85.6 fL (80.0-100.0); Mean Platelet Volume 12.6; Monocytes # (A) 0.4 k/uL (0-1.0); Monocytes % (A) 4 %; Neutrophils % (A) 88 %; RBC 2.92 m/uL (4.30-5.90); RDW 19.7 % (11.5-15.5); WBC 10.2 k/uL (3.8-10.6)
[2023-12-05 05:25] LABS: Platelet Count 90 k/uL (150-450)
[2023-12-05 05:36] LABS: Ionized Calcium 4.3 mg/dL (4.5-5.3)
[2023-12-05 05:47] LABS: African American GFR (CKD) 24 (>60 ml/min/1.73 sqM); Anion Gap 4 mmol/L; Blood Urea Nitrogen 70 mg/dL (9-20); Calcium 7.3 mg/dL (8.4-10.2); Carbon Dioxide 26 mmol/L (22-30); Chloride 100 mmol/L (98-107); Glucose 209 mg/dL (74-99); Non-African American GFR(CKD) 21 (>60 ml/min/1.73 sqM); Sodium 130 mmol/L (137-145)
[2023-12-05 05:58] LABS: Ovalocytes Present
[2023-12-05 06:01] LABS: RBC Fragments Present
--- NOTE | 2023-12-05 08:20 | P.PN ---
Subjective Progress Note Date: 12/04/23 Principal diagnosis: Diffuse large B-cell lymphoma -Remains intubated and sedated Objective - Vital Signs Vital signs: Vital Signs Temp 98.5 F 12/05/23 04:00 Pulse 66 12/05/23 07:00 Resp 18 12/05/23 07:00 BP 101/55 12/05/23 07:00 Pulse Ox 99 12/05/23 07:00 FiO2 35 12/05/23 07:20 Intake & Output 12/04/23 12/05/23 12/05/23 18:59 06:59 18:59 Intake Total 803.817 3863.509 13 Output Total 1095 5430 125 Balance -605.186 -3610.491 -112 Weight 109.7 kg 111.7 kg Intake: IV 150 1057 13 0.9 KVO 120 120 10 Meropenem 1 gm In Sodium 100 Chloride 0.9% 100 ml @ 33 .333 mls/hr IVPB HS [facility] Rx#:[id number] Mvi, Adult No.4 with Vit 375 K 10 ml Trace (Conc-1Ml/ Dose) 1 ml Sodium Acetate 30 meq Potassium Acetate 10 meq Calcium Gluconate 1 gm In Amino Acids 5 %/ Dextrose 20 % 1,000 ml @ 75 mls/hr IV .BY DURATION [facility] Rx#:[id number] Normal Saline Pressure 30 12 3 Saline Sodium Acetate 60 meq 450 Potassium Chloride 14 meq Calcium Gluconate 1.5 gm Magnesium Sulfate gm 0. 25 gm In Amino Acids 5 %/ Dextrose 20 % 1,000 ml @ 75 mls/hr IV .BY DURATION [facility] Rx#:[id number] Intake, IV Titration 339.814 112.509 Amount Dexmedetomidine/0.9% NaCl 118.569 (Pmx) 400 mcg In Empty Bag 1 bag @ 0.2 MCG/KG/HR 5.485 mls/hr IV .[id number] [facility] Rx#:[id number] Magnesium Sulfate-D5w Pmx 100 1 gm In Dextrose/Water 1 100ml.bag @ 100 mls/hr IVPB ONCE ONE Rx#: [id number] Norepinephrine 8 mg In 10.719 2.724 Sodium Chloride 0.9% 250 ml @ 0.03 MCG/KG/MIN 6. 368 mls/hr IV .Q24H [facility] Rx#:[id number] propofoL 1,000 mg In 110.526 109.785 Empty Bag 1 bag @ 20 MCG/ KG/MIN 9.36 mls/hr IV . [id number] [facility] Rx#:[id number] Hemodialysis 650 Output: Gastric Drainage 0 Drainage 135 150 Left Abdomen 15 50 Right Abdomen 120 100 Urine 960 930 125 Hemodialysis 2500 Hemodialysis Net Amount 1850 Other: Voiding Method Indwelling Catheter Indwelling Catheter ABP, PAP, CO, CI - Last Documented Arterial Blood Pressure 130/54 - Constitutional Constitutional Comment(s): Intubated and sedated - Respiratory Details: Mechanical breath sounds - Cardiovascular Details: Warm and well-perfused - Peripheral edema ankle Peripheral Edema: bilateral: Trace - Gastrointestinal General gastrointestinal: Present: distended - Labs CBC & Chem 7: 12/05/23 04:15 12/05/23 04:15 Labs: Abnormal Lab Results - Last 24 Hours (Table) 12/04/23 12/05/23 12/05/23 Range/Units 11:40 00:01 04:15 RBC (4.30-5.90) m/uL Hgb (13.0-17.5) gm/dL Hct (39.0-53.0) % RDW (11.5-15.5) % Plt Count (150-450) k/uL Neutrophils # (1.3-7.7) k/uL Lymphocytes # (1.0-4.8) k/uL ABG pH (7.35-7.45) ABG HCO3 (21-25) mmol/L ABG Total CO2 (19-24) mmol/L ABG O2 Saturation (94-97) % Sodium 130 L (137-145) mmol/L BUN 70 H (9-20) mg/dL Creatinine 2.89 H (0.66-1.25) mg/dL Glucose 209 H (74-99) mg/dL POC Glucose (mg/dL) 189 H 210 H (70-110) mg/dL Calcium 7.3 L (8.4-10.2) mg/dL Ionized Calcium Krystal 4.3 L (4.5-5.3) mg/dL 12/05/23 12/05/23 12/05/23 Range/Units 04:15 05:06 05:11 RBC 2.92 L (4.30-5.90) m/uL Hgb 8.0 L (13.0-17.5) gm/dL Hct 25.0 L (39.0-53.0) % RDW 19.7 H (11.5-15.5) % Plt Count 90 L (150-450) k/uL Neutrophils # 9.0 H (1.3-7.7) k/uL Lymphocytes # 0.7 L (1.0-4.8) k/uL ABG pH 7.48 H (7.35-7.45) ABG HCO3 27 H (21-25) mmol/L ABG Total CO2 29 H (19-24) mmol/L ABG O2 Saturation 98.1 H (94-97) % Sodium (137-145) mmol/L BUN (9-20) mg/dL Creatinine (0.66-1.25) mg/dL Glucose (74-99) mg/dL POC Glucose (mg/dL) 212 H (70-110) mg/dL Calcium (8.4-10.2) mg/dL Ionized Calcium Krystal (4.5-5.3) mg/dL Assessment and Plan (1) Iron deficiency anemia Current Visit: Yes Status: Acute Priority: High Code(s): D50.9 - IRON DEFICIENCY ANEMIA, UNSPECIFIED SNOMED Code(s): 88724795 (2) Large B-cell lymphoma Current Visit: Yes Status: Acute Priority: High Code(s): C85.10 - UNSPECIFIED B-CELL LYMPHOMA, UNSPECIFIED SITE SNOMED Code(s): 977947426 (3) Perforation bowel Current Visit: Yes Status: Acute Code(s): K63.1 - PERFORATION OF INTESTINE (NONTRAUMATIC) SNOMED Code(s): 43170083 Plan: DLBCL of GI tract -Diagnosed from gastric lesion on EGD -MYC +, BCL2 & 6 neg-not dbl or triple hit. Reviewed results with the 2 daughters and at the bedside -Family is aware that treatment for lymphoma would not begin until patient is healed adequately from surgery and extubated [place] -Suspect 2/2 to chronic GI losses, malabsorption. -s/p 4 IV iron infusions -Hgb currently stable Perforated bowel -s/p resection and adjustment of the tube -Perforation at the site of balloon for the j-tube -Reviewed pathology from resected bowel revealing no evidence of lymphoma, but instead revealed ischemic colitis with necrosis -From a hematology/oncology perspective, I did recommend proceeding with feedings through J-tube as long as this was cleared through surgery -Following discussion, family appeared to be more amenable to proceeding with tube feedings -This was also discussed with statistics manager Laure Collins MD
--- NOTE | 2023-12-05 08:47 | XR ---
EXAMINATION TYPE: XR chest 1V portable DATE OF EXAM: 12/05/2023 5:37 AM CLINICAL INDICATION: Male, 73 years old with history of mechanical ventilation; [facility] COMPARISON: Chest radiographs from 12/04/2023 TECHNIQUE: XR chest 1V portable Frontal view of the chest. FINDINGS: Lungs/Pleura: No evidence of focal consolidation or pneumothorax. Blunting of the costophrenic angles is present. Pulmonary vascularity: Pulmonary vascular congestion. Heart/mediastinum: Cardiomediastinal silhouette is enlarged. Musculoskeletal: No acute osseous pathology. Other findings: None Lines/Tubes: Endotracheal tube with distal tip 5.1 cm above the josseline. Nasogastric tube with its distal tip and side-port projecting under the diaphragm. [id number] projecting over the right hemithorax with distal tip at the cavoatrial junction. Left central venous catheter with distal tip at the cavoatrial junction. IMPRESSION: Cardiomegaly, pulmonary vascular congestion and bilateral pleural effusions. Correlate with BNP for c ongestive heart failure. [facility], , 12/05/2023 8:44 AM
--- NOTE | 2023-12-05 10:38 | P.PN ---
Subjective Patient is seen for follow-up for acute kidney injury. status post hemodialysis yesterday with UF of 1.8 L. Patient remains on the vent. Sedation is being decreased. urine output at 50-100 mL per hour. Edema has improved. Objective - Vital Signs Vital signs: Vital Signs Temp 98.2 F 12/05/23 08:00 Pulse 72 12/05/23 09:00 Resp 24 12/05/23 09:00 BP 123/68 12/05/23 08:00 Pulse Ox 99 12/05/23 09:00 FiO2 35 12/05/23 07:20 Intake & Output 12/04/23 12/05/23 12/05/23 18:59 06:59 18:59 Intake Total 249.139 4902.509 254.91 Output Total 1095 5430 475 Balance -605.186 -3610.491 -220.09 Weight 109.7 kg 111.7 kg Intake: IV 150 1057 39 0.9 KVO 120 120 30 Meropenem 1 gm In Sodium 100 Chloride 0.9% 100 ml @ 33 .333 mls/hr IVPB HS [facility] Rx#:[id number] Mvi, Adult No.4 with Vit 375 K 10 ml Trace (Conc-1Ml/ Dose) 1 ml Sodium Acetate 30 meq Potassium Acetate 10 meq Calcium Gluconate 1 gm In Amino Acids 5 %/ Dextrose 20 % 1,000 ml @ 75 mls/hr IV .BY DURATION [facility] Rx#:[id number] Normal Saline Pressure 30 12 9 Saline Sodium Acetate 60 meq 450 Potassium Chloride 14 meq Calcium Gluconate 1.5 gm Magnesium Sulfate gm 0. 25 gm In Amino Acids 5 %/ Dextrose 20 % 1,000 ml @ 75 mls/hr IV .BY DURATION [facility] Rx#:[id number] Intake, IV Titration 339.814 112.509 215.91 Amount Dexmedetomidine/0.9% NaCl 118.569 0 (Pmx) 400 mcg In Empty Bag 1 bag @ 0.2 MCG/KG/HR 5.485 mls/hr IV .[id number] [facility] Rx#:[id number] Magnesium Sulfate-D5w Pmx 100 1 gm In Dextrose/Water 1 100ml.bag @ 100 mls/hr IVPB ONCE ONE Rx#: [id number] Norepinephrine 8 mg In 10.719 2.724 Sodium Chloride 0.9% 250 ml @ 0.03 MCG/KG/MIN 6. 368 mls/hr IV .Q24H [facility] Rx#:[id number] Sodium Acetate 60 meq 150 Sodium Chloride 4Meq/ml Vial 44 meq Potassium Chloride 14 meq Calcium Gluconate 2 gm Magnesium Sulfate gm 0.25 gm In Amino Acids 5 %/Dextrose 20 % 1,000 ml @ 75 mls/hr IV .BY DURATION [facility] Rx#: [id number] propofoL 1,000 mg In 110.526 109.785 65.91 Empty Bag 1 bag @ 20 MCG/ KG/MIN 9.36 mls/hr IV . [id number] [facility] Rx#:[id number] Hemodialysis 650 Output: Gastric Drainage 0 Drainage 135 150 50 Left Abdomen 15 50 0 Right Abdomen 120 100 50 Urine 960 930 425 Hemodialysis 2500 Hemodialysis Net Amount 1850 Other: Voiding Method Indwelling Catheter Indwelling Catheter ABP, PAP, CO, CI - Last Documented Arterial Blood Pressure 126/54 - Exam patient is sedated and on the vent. Examination of the heart S1 and S2 Examination of the lungs bilateral breath sounds are heard Abdomen is soft dressed, RAYA drain noted Examination of lower extremities shows edema 1+ with significant scrotal edema, improving - Labs CBC & Chem 7: 12/05/23 04:15 12/05/23 04:15 Labs: Abnormal Lab Results - Last 24 Hours (Table) 12/04/23 12/05/23 12/05/23 Range/Units 11:40 00:01 04:15 RBC (4.30-5.90) m/uL Hgb (13.0-17.5) gm/dL Hct (39.0-53.0) % RDW (11.5-15.5) % Plt Count (150-450) k/uL Neutrophils # (1.3-7.7) k/uL Lymphocytes # (1.0-4.8) k/uL ABG pH (7.35-7.45) ABG HCO3 (21-25) mmol/L ABG Total CO2 (19-24) mmol/L ABG O2 Saturation (94-97) % Sodium 130 L (137-145) mmol/L BUN 70 H (9-20) mg/dL Creatinine 2.89 H (0.66-1.25) mg/dL Glucose 209 H (74-99) mg/dL POC Glucose (mg/dL) 189 H 210 H (70-110) mg/dL Calcium 7.3 L (8.4-10.2) mg/dL Ionized Calcium Krystal 4.3 L (4.5-5.3) mg/dL 12/05/23 12/05/23 12/05/23 Range/Units 04:15 05:06 05:11 RBC 2.92 L (4.30-5.90) m/uL Hgb 8.0 L (13.0-17.5) gm/dL Hct 25.0 L (39.0-53.0) % RDW 19.7 H (11.5-15.5) % Plt Count 90 L (150-450) k/uL Neutrophils # 9.0 H (1.3-7.7) k/uL Lymphocytes # 0.7 L (1.0-4.8) k/uL ABG pH 7.48 H (7.35-7.45) ABG HCO3 27 H (21-25) mmol/L ABG Total CO2 29 H (19-24) mmol/L ABG O2 Saturation 98.1 H (94-97) % Sodium (137-145) mmol/L BUN (9-20) mg/dL Creatinine (0.66-1.25) mg/dL Glucose (74-99) mg/dL POC Glucose (mg/dL) 212 H (70-110) mg/dL Calcium (8.4-10.2) mg/dL Ionized Calcium Krystal (4.5-5.3) mg/dL Assessment and Plan Assessment: 1. Acute kidney injury secondary to ATN secondary to septic shock. Creatinine 0.86 on admission and up to 5.38 dated November 29, 2023. nonoliguric. UA fairly benign. No hydronephrosis noted on imaging. Started hemodialysis on for worsening volume status and acute kidney injury. 2. Perforated small bowel status post exploratory laparotomy with abdominal washout, small bowel resection and J-tube replacement November 25, 2023. 3. A-fib with RVR. s/p amiodarone drip. Also received digoxin this admission. 4. Recently diagnosed gastric B-cell lymphoma. 5. Septic shock. Likely abdominal source. On IV antibiotics. Off vasopressors now. 6. Hypocalcemia secondary to acute kidney injury. Replaced. Improved. 7. Metabolic acidosis secondary to acute kidney injury. Improved. 8. Volume overload Plan: dialysis in a.m. Continue with IV Lasix Continue TPN Repeat labs in a.m.
[2023-12-05 12:16] LABS: Glucose,Whole Blood 186 mg/dL (70-110)
--- NOTE | 2023-12-05 14:04 | P.PN ---
Subjective Progress Note Date: 12/05/23 Principal diagnosis: Acute hypoxic respiratory failure requiring intubation mechanical ventilation secondary to aspiration. This is a 73-year-old white male with history of chronic abdominal pain for the last 8 months has been treated with Protonix 40 mg daily for the last 3 months with no improvement. Patient had a 22 pound weight loss in the last [address] of the abdomen and pelvis 3 weeks ago showed thickening of the antral wall with pathological adenopathy posterior to the stomach suspicious of neoplasm. Today the patient underwent elective upper endoscopy to evaluate further, patient received IV sedation by anesthesia endoscope was inserted into the mouth, esop hagus was intubated without any difficulty there was evidence of large amount of liquid and solid food noted in the stomach suggestive of gastric outlet obstruction. Scope could not be advanced through the pylorus, however in the prepyloric area there was a large superficial ulceration identified with multiple biopsies were done from this area. The body cardia and fundus could not adequately visualize because of large amount of retained food in the stomach. Scope was withdrawn back to the stomach and upon careful examination the mucosa of the antrum body and cardia as well as the fundus appeared normal. Procedure was being performed and biopsies were done patient threw up and subsequently became hypoxic there was clearly evidence of witnessed aspiration anesthesia intubated the patient, procedure was terminated, and the patient was transferred to the ICU, this consult was initiated. Patient is now on assist- control rate of 20 tidal volume 500 FiO2 70% PEEP of 10 ABG is pending, earlier ABG showed profound hypoxia patient is on propofol at 50 mcg/kg/min, next ABG is pending. Chest x-ray showed chronic changes without evidence of acute pulmonary disease. Patient was evaluated today on 11/17/2023, patient underwent uneventful placement of a jejunostomy tube yesterday, in the ICU on 5 L, patient is relatively stable, not in any distress, patient continues to have nasogastric tube in place although he did have a J-tube placed yesterday. Patient was seen by oncology for his non-Hodgkin's lymphoma involving the gastric outlet. Today's x-ray showed evidence of pneumonia/bilateral interstitial infiltrate/edema patient was given a dose of Lasix, I reminded the patient had an aspiration episode which was significant. And he required intubation mechanical ventilation for a few days.WBC count today is 9.1 hemoglobin 7.9 electrolytes are normal renal profile is normal hence I plan to transfer the patient out of the ICU to a cardiac floor. And hopefully discharge planning in the next 2 days for On 11/29/2023, the patient is being seen for a follow-up. Remains intubated on the mechanical ventilator. The patient sedated on propofol which is running at 35 mcg/kg/min. Synchronous with mechanical ventilator. On today's evaluation, he is on assist-control mode with rate of 28, tidal volume of 550, FiO2 55% with a PEEP of 5. Chest x-ray shows lower lobe consolidation bilaterally worse on the right and the orotracheal tube is in good location. The blood gas showed a pH of 7.34 with a pCO2 of 35 and a pO2 of 84. No significant orotracheal secretions. Hemodynamically improved compared to yesterday. In fact, the patient is on minimal norepinephrine that was discontinued earlier this morning. The patient has converted to normal sinus rhythm. Remains on amiodarone at 0.5 mg/min. Overall fluid balance over the past 24 hours is 2.4 L positive. Urine output has been adequate and the patient is currently on IV Lasix. Nevertheless, the patient has developed progressive worsening renal function. Creatinine is up to 5.3 on today's evaluation with a potassium level of 4.4. Serum bicarb is at 18 with an anion gap of 9. WBC count is at 8.1 with a hemogl obin of 7 and a platelet count of 32 which has dropped compared to earlier evaluation. The rest of the coagulation profile was normal from 11/28/2023. Fibrinogen level is slightly elevated. Sputum samples have shown a combination of Citrobacter and Pseudomonas aeruginosa. Based on cultures and sensitivities, the patient will be taken off his IV Zosyn and he will be switched to IV meropenem. Output from the J-tube is fecal. Output from the NG tube is gastric and surgical wound site is dry clean and intact. He is afebrile for now. Hemodynamically, the patient is doing better. He remains on TPN for nutritional support. IV fluids are also running at a rate of 75 cc an hour. Remains on vancomycin. 11/22/2023, the patient is being seen for a follow-up. The patient remains on propofol at 50 mcg/kg/min. Ventilator settings are essentially unchanged. The patient remains on assist-control mode with rate of 18, tidal volume of 400, FiO2 50% with a PEEP of 5. The blood gas showed a pH of 7.37 with a pCO2 of 43 and pO2 of 127. Chest x-ray shows no significant interval change. Patient remains on normal saline at rate of 75 cc an hour and TPN at rate of 35 cc an hour. Fluid balance is positive. Hemodialysis was performed yesterday and the second session of hemodialysis to be done today. The patient's urine output is in the order of 20 to 30 cc an hour. The patient has an NG output of 350 cc for yesterday and the drainage from the J-tube is in the order of 400 cc over the past 24 hours. The blood work shows a WBC count of 10.8, hemoglobin 8.1 and platelet count of 41. Platelet counts are essentially stable and slightly improved compared to yesterday. The sodium level is at 133, potassium is at 4.3, BUN is 93 with a creatinine of 3.6. LFTs are within normal limits. Albumin is down to 2.1. The patient is currently on no pressors. Norepinephrine and vasopressin are both discontinued and the patient remains in normal sinus rhythm. No other significant events overnight. Family has been updated on his condition. Antibiotic coverage is currently with IV meropenem. Vancomycin and Zosyn have been both discontinued. On 12/01/2023, the patient remains sedated on propofol which is running at 25 mcg/kg/min., Comfortable and synchronous mechanical ventilator. The patient remains on assist-control mode rate of 28, tidal volume of 550, FiO2 40% and PEEP of 5. Blood gas shows a pH of 7.49 with a pCO2 of 34 and pO2 of 121. Patient underwent hemodialysis yesterday. No plans for hemodialysis today the patient is producing urine output. Remains on TPN for nutrition support rate of 75 cc an hour. IV fluids are currently at KVO. The chest x-ray from today shows bilateral lower lobe consolidation worse on the right. No significant change in the volume status. The patient continues to have third spacing and edema in all 4 extremities. Nevertheless, urine output is adequate at this point in time and the patient remains on Lasix 80 mg IV every 12 hours. Remains NPO. NG tube and J-tube are both drainage. Output is noted. Remains on IV meropenem. Afebrile. Currently on no pressors. Blood work shows a WBC count of 11.4, hemoglobin of 8.1 and platelet count of 46. Sodium is at 131, potassium level is at 3.7, chloride 101 and bicarb is at 24. BUN is 84 with a creatinine of 3.6. Glucose of 228. LFTs are within normal limits. Patient was reevaluated today on 12/02/23, patient remains in the ICU, patient is familiar to my service, I saw this patient 3 weeks ago. Since then he had a very complicated hospital course, related to his jejunostomy tube dislodging and leaking and picture of abdominal sepsis and worsening pneumonia/ARDS. Patient had to be placed back on mechanical ventilation, and he is now intubated and mechanically ventilated. He is on assist-control rate of 20 tidal volume 550 FiO2 40% PEEP of 5 ABG showed a pO2 of 111 pCO2 38 pH of 7.43 and I cut down his FiO2 to 35% and increase his flow rate from 60-70. Patient remains on TPN at 75 cc/h he is on propofol at 25 mcg/kg/min patient is on Cleviprex which I added today for elevated blood pressure. Receiving Lasix 80 mg every 12 hours is also on Merrem as per infectious disease. Patient is on hemodialysis and being followed by nephrology. Patient required multiple abdominal surgeries since his initial admission. Chest x-ray continues to show worsening pneumonia involving both lungs, right more so than left, I suspect there may be a component of ARDS. His initial presentation was the presentation of aspiration pneumonia to begin with and that was 3 weeks agoWBC count is 10.3 hemoglobin 8.6 sodium 131 potassium 4 chloride 100 bicarb 23 BUN is 111 creatinine 4.02 blood sugar is 248. Albumin is 1.9 Patient was evaluated today on , patient remains in the ICU, intubated and mechanically ventilated. Patient is on assist-control rate of 20 tidal volume 550 FiO2 35% and PEEP of 5 ABG showed a pO2 of 99 pCO2 39 pH of 7.44 patient is undergoing hemodialysis today, and the plan is to remove 2 L. He is remains on propofol at 35 mcg/kg/min, remains on TPN at 75 cc/h. Remains on Merrem. Patient is not requiring any pressors today. Yesterday patient did not tolerate to be off sedation long enough, and today we tried the same sedation in terruption, and the patient did not do well post interruption of sedation, became extremely agitated restless, tachycardic, and could not fully assess mental status off sedation. Hence the patient was placed back on AC mode of mechanical ventilation, and the plan is to continue the same supportive care measures. Family updated on his condition and most likely the patient will end up requiring tracheostomy in the next few days.WBC count is 8.5 hemoglobin 8.2 basic metabolic profile is relatively unremarkable BUN is 89 creatinine 3.45 chest x-ray today showed stable chest, suspect some right-sided pleural effusion which would likely improve with hemodialysis/ultrafiltration. X-ray of abdomen showed nonspecific nonobstructive bowel gas pattern Patient was seen today on 12/04/2023, remains in the ICU, intubated mechanically ventilated, on assist-control rate of 20 tidal volume 550 FiO2 35% PEEP of 5 ABG showed a pO2 of 112 pCO2 38 pH of 7.45, hence no changes were made in ventilator settings. Patient is on propofol at 35 mcg/kg/min he is also on IV fluid at KVO TPN at 75 cc/h. Remains on hemodialysis remains on Lasix 80 mg IV push twice daily, remains on Merrem. This x-ray continues to show the same findings/airspace disease in both lungs, not much of a change in the last 2 day s, however his oxygenation seems to be improved. WBC count is 7.1 hemoglobin 7.7. Electrolytes are normal, BUN is elevated 77 creatinine 3.32, patient is on hemodialysis. His condition was discussed today with the at bedside, and I do not believe the patient is ready to be weaned or extubated, however he seems to get extremely agitated when he goes off propofol, today I plan to transition propofol to Precedex, give him a trial on Precedex and determine whether the patient becomes more appropriate and at least ready for any weaning trials. Clinically I doubt if this will happen but we will go ahead and try Patient was evaluated today on 12/05/2023, remains in the ICU, intubated mecha nically ventilated, not much of a change noted in the last 24 hours. Remains on assist-control of 20 tidal volume 550 FiO2 35% PEEP of 5 ABG showed a pO2 of 90 pCO2 37 pH of 7.48 hence chose not to change any of his ventilator settings. Yesterday the patient failed again trial of weaning, and he was never anywhere near ready to be weaned in spite of placing him on Precedex and off propofol, at 1 point the patient became extremely agitated restless and he was biting on the endotracheal tube could not fully awake the patient and determine improvement in his mental status. Hence patient was placed back on propofol yesterday and he remains on propofol today. He is on propofol at 25 mcg/kg/min he is on TPN at 75 cc/h surgery is considering starting his J-tube feedings today. Remains on hemodialysis remains on Merrem remains on Lasix 80 mg IV push twice daily overall not much of a change his chest x-ray is basically about the same showing bibasilar airspace disease. Today I had a discussion with the regarding the option of tracheostomy extremely reluctant to have it done yet. Said that the patient had multiple complications with previous surgeries and she is afraid that he is going to have another complication with the surgeryWBC count is 10.2 hemoglobin is 8, basic metabolic profile is normal sodium 130 BUN 70 creatinine 2.89 Objective - Vital Signs Vital signs: Vital Signs Temp 97.8 F 12/05/23 12:00 Pulse 70 12/05/23 13:00 Resp 24 12/05/23 13:00 BP 114/66 12/05/23 13:00 Pulse Ox 99 12/05/23 13:00 FiO2 35 12/05/23 12:00 Intake & Output 12/04/23 12/05/23 12/05/23 18:59 06:59 18:59 Intake Total 977.090 0306.509 631.116 Output Total 1095 5430 871 Balance -605.186 -3610.491 -239.884 Weight 109.7 kg 111.7 kg Intake: IV 150 1057 91 0.9 KVO 120 120 70 Meropenem 1 gm In Sodium 100 Chloride 0.9% 100 ml @ 33 .333 mls/hr IVPB HS [facility] Rx#:[id number] Mvi, Adult No.4 with Vit 375 K 10 ml Trace (Conc-1Ml/ Dose) 1 ml Sodium Acetate 30 meq Potassium Acetate 10 meq Calcium Gluconate 1 gm In Amino Acids 5 %/ Dextrose 20 % 1,000 ml @ 75 mls/hr IV .BY DURATION [facility] Rx#:[id number] Normal Saline Pressure 30 12 21 Saline Sodium Acetate 60 meq 450 Potassium Chloride 14 meq Calcium Gluconate 1.5 gm Magnesium Sulfate gm 0. 25 gm In Amino Acids 5 %/ Dextrose 20 % 1,000 ml @ 75 mls/hr IV .BY DURATION [facility] Rx#:[id number] Intake, IV Titration 339.814 112.509 540.116 Amount Dexmedetomidine/0.9% NaCl 118.569 14.261 (Pmx) 400 mcg In Empty Bag 1 bag @ 0.2 MCG/KG/HR 5.485 mls/hr IV .[id number] [facility] Rx#:[id number] Magnesium Sulfate-D5w Pmx 100 1 gm In Dextrose/Water 1 100ml.bag @ 100 mls/hr IVPB ONCE ONE Rx#: [id number] Norepinephrine 8 mg In 10.719 2.724 0 Sodium Chloride 0.9% 250 ml @ 0.03 MCG/KG/MIN 6. 368 mls/hr IV .Q24H [facility] Rx#:[id number] Sodium Acetate 60 meq 450 Sodium Chloride 4Meq/ml Vial 44 meq Potassium Chloride 14 meq Calcium Gluconate 2 gm Magnesium Sulfate gm 0.25 gm In Amino Acids 5 %/Dextrose 20 % 1,000 ml @ 75 mls/hr IV .BY DURATION [facility] Rx#: [id number] propofoL 1,000 mg In 110.526 109.785 75.855 Empty Bag 1 bag @ 20 MCG/ KG/MIN 9.36 mls/hr IV . [id number] [facility] Rx#:[id number] Hemodialysis 650 Output: Gastric Drainage 0 Drainage 135 150 120 Left Abdomen 15 50 50 Right Abdomen 120 100 70 Urine 960 930 750 Stool 1 Hemodialysis 2500 Hemodialysis Net Amount 1850 Other: Voiding Method Indwelling Catheter Indwelling Catheter Indwelling Catheter ABP, PAP, CO, CI - Last Documented Arterial Blood Pressure 126/59 - Exam General: Revealed 73-year-old white male intubated, mechanically ventilated, sedated, on propofol orotracheal tube is intact, and nasogastric tube is intact Skin: Skin is warm and dry and no rashes or lesions are noted. Eye: Pupils are equal, round and reactive to light, extra-ocular movements are intact; there is normal conjunctiva bilaterally. Ears, nose, mouth and throat: There are moist mucous membranes and no oral lesions. Neck: The neck is supple, there is no tenderness or JVD. Cardiovascular: There is a regular rate and rhythm. No murmur, rub or gallop is appreciated. Respiratory: Diminished breath sounds and crackles at the bases no rhonchi no wheezes Gastrointestinal: J-tube is noted RAYA drain is noted NG tube is in place mild abdominal distention, no rebound, no guarding, no bowel sounds, no significant leak noted from the tubes in the abdomen. Musculoskeletal: No deformities and no limitation range of motion Neurological: Could not assess, patient was given sedation holiday yesterday, but not much improvement noted in his overall neurological status Psychiatric: Could not assess. Extremities patient has 2+ bipedal edema. - Labs CBC & Chem 7: 12/05/23 04:15 12/05/23 04:15 Labs: Abnormal Lab Results - Last 24 Hours (Table) 12/05/23 12/05/23 12/05/23 Range/Units 00:01 04:15 04:15 RBC 2.92 L (4.30-5.90) m/uL Hgb 8.0 L (13.0-17.5) gm/dL Hct 25.0 L (39.0-53.0) % RDW 19.7 H (11.5-15.5) % Plt Count 90 L (150-450) k/uL Neutrophils # 9.0 H (1.3-7.7) k/uL Lymphocytes # 0.7 L (1.0-4.8) k/uL ABG pH (7.35-7.45) ABG HCO3 (21-25) mmol/L ABG Total CO2 (19-24) mmol/L ABG O2 Saturation (94-97) % Sodium 130 L (137-145) mmol/L BUN 70 H (9-20) mg/dL Creatinine 2.89 H (0.66-1.25) mg/dL Glucose 209 H (74-99) mg/dL POC Glucose (mg/dL) 210 H (70-110) mg/dL Calcium 7.3 L (8.4-10.2) mg/dL Ionized Calcium Krystal 4.3 L (4.5-5.3) mg/dL 12/05/23 12/05/23 12/05/23 Range/Units 05:06 05:11 12:15 RBC (4.30-5.90) m/uL Hgb (13.0-17.5) gm/dL Hct (39.0-53.0) % RDW (11.5-15.5) % Plt Count (150-450) k/uL Neutrophils # (1.3-7.7) k/uL Lymphocytes # (1.0-4.8) k/uL ABG pH 7.48 H (7.35-7.45) ABG HCO3 27 H (21-25) mmol/L ABG Total CO2 29 H (19-24) mmol/L ABG O2 Saturation 98.1 H (94-97) % Sodium (137-145) mmol/L BUN (9-20) mg/dL Creatinine (0.66-1.25) mg/dL Glucose (74-99) mg/dL POC Glucose (mg/dL) 212 H 186 H (70-110) mg/dL Calcium (8.4-10.2) mg/dL Ionized Calcium Krystal (4.5-5.3) mg/dL Assessment and Plan Assessment: Impression: Acute hypoxic respiratory failure requiring intubation mechanical ventilation secondary to aspiration. Status post J-tube placement 11/16/2023, multiple complications since then related to the J-tube placement requiring multiple surgeries. 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 Continue dialysis Continue Lasix Avoid nephrotoxic drugs Continue GI and DVT prophylaxis Family was updated on his condition today, and I suggested seriously considering tracheostomy is extremely reluctant and does not want to proceed with tracheostomy at this point yet concerned that the patient had multiple complications with previous surgeries and she is afraid he is going to have more complications with the surgery again. Critical care time is over 30 Will continue to follow Time with Patient: Greater than 30
--- NOTE | 2023-12-05 16:39 | P.PN ---
Progress Note - Text Progress Note Date: 12/05/23 Chief Complaint: Aspirated This is a 73-year-old patient, follows with Dr. Patricia Deal. Patient was seen this morning in the ICU. Patient's and daughter at the bedside. History obtained predominantly by the . Patient been having trouble with his stomach symptoms for close to 8 months. Patient underwent EGD by Dr. Sahara Cheng yesterday. Patient was found to have ulcerated around the antrum and obstruction to the pylorus. A lot of retained food was found. Patient aspirated. Had to be intubated and brought to the ICU. On a Levophed drip. FiO2 50 and a PEEP of 6. Patient had been losing weight lost about 25 pounds. Previously has a history of mitral valve prolapse. November 13: ICU. Patient remains on Precedex drip and propofol drip. Did not do well attempted extubation yesterday. Patient been off Levophed. NG tube to suction. Spoke to patient's and son at the bedside. Biopsy results awaited. Hemoglobin dropped to 6.9 this morning. Get a unit of blood. November 14: ICU. Up in a chair. Extubated yesterday. NG tube to suction. at the bedside. 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 Oncology was consulted. They have ordered a port. Results discussed with Dr. Sahara Cheng. General surgery was consulted for J-tube placement. Discussed with at the bedside. Patient getting IV fluids, IV Zosyn,. Patient has been on IV amiodarone for A-fib-back in sinus rhythm. Multiple PACs. Did receive unit of blood yesterday. Also IV ferric gluconate. November 15: ICU. Patient earlier today underwent jejunostomy tube placement and a port placement. Patient awake. Answering questions. NG tube to suction present. Updated patient's . Patient remains on IV amiodarone and IV Zosyn. November 16: ICU. Up in the chair. NG tube present but not to suction. Trickle feeding through the jejunostomy tube should be started today. Dietitian has been on board. IV Zosyn to continue. Patient's and his sister at the bedside. Discussed. Also spoke with Dr. Serna. Given patient has no other predisposing cardiac factors for the A-fib except acute illness. His LV function is normal. Left atrium is normal. He has already been loaded with IV amiodarone. Will switch him to oral Lopressor 12.5 twice daily. Hence will DC amiodarone. Patient yesterday had wheezing was put on bronchodilators steroids per pulmonary. November 17: Propped up in bed. NG tube was discontinued. Sinus rhythm. Remains NPO. Getting G-tube feeding at 40 cc an hour. Dietitian following. Get arrangements done for DC home tomorrow including tube feeding. Increase activity discussed with patient and elder daughter at the bedside. Still requiring oxygen. Incentive spirometry. November 18: Patient up in recliner. Earlier today spoke to manager social work David. Informed patient is rather weak and will be going to the [facility]. Looking at authorization. Denae came to the room and spoke to patient his and his daughter. They are very keen to take the patient home as 3 daughters all nurses and they will take care of him at home. Patient earlier today to abdominal cramping and some loose stools.'s tube feeding was held. Told the nurse to start back at the rate of 40 cc an hour. He was before the getting it at 55 cc an hour. Incentive spirometry was again emphasized. Patient remains on 4 L of oxygen. November 19: I saw the patient this morning. Hence I am in the evening. Morning was sitting with his sons. Has some edema. Lungs had crackles I gave him 40 mg of Lasix. He did make good urine. Tube feeding was held from the previous evening of because of abdominal cramping. Acute abdominal series showed nonspecific bowel gas pattern and SBO to be ruled out. Family and patient was updated. Told him discharge will depend on day by day. Later this afternoon CT scanAnd abdomen pelvis done. Showed small bowel to be 3 point centimeter dilated. Some anasarca. Gastric findings. Gallstones. Later spoke to Dr. Irby from general surgery. They will further review and decide about further plan of action. Will give further dose of IV Lasix because of fluid overload from likely hypoalbuminemia and IV fluids previously received. Patient may take his pills by mouth. Total time spent today about 1 hour with over 40 minutes of discussion. Patient did state his breathing is better after Lasix this morning. November 20: Saw the patient this morning. was present. Patient received 2 more doses of Lasix. Diuresed well. Breathing much better. Lungs are sounding better. Discussed with Dr. Zepeda other surgeon. He is taking 3 cc out of the balloon and the gastrostomy tube. Started trickle feeding at 5 cc an hour. Will see how this does. Later in the day ran into the and the daughter again. Did update them on the same. Dilaudid was discontinued yesterday but morphine was ordered by surgery for patient having pain. Concerns about GI issues with that we will DC the morphine. As family does not want the same. November 21: Patient reclining bed. Tired. Several family members at the bedside. Including his and eldest daughter. Patient started on trickle feed yesterday at 5 cc an hour. This morning he has been on 10 cc an hour. Still having some loose stools. C. difficile was ordered. Patient on 2 L of nasal cannula. Has diuresed well. Will give an additional dose of Lasix today. If C. difficile is negative and the diarrhea is from the tube feedings we may have to use a fecal management system to keep him comfortable. Otherwise patient remains NPO. Dietitian is following the patient. Care was discussed length with patient the and daughter at the bedside. Questions answered. Liquid Tylenol has been added for abdominal pain. Avoid narcotics. Elevated white count likely from Solu-Medrol 11/23/2023--patient was feeling better today. Multiple family member at bedside. No issues overnight. Normal saline at 10 cc an hour, tube feeding at 20 cc an hour, remains on Zosyn, on 3 L oxygen. Afebrile. Heart rate 62, respiratory rate 16, blood pressure 114/67, saturating 91% on 3 L. WBCs 14.5, 9.7 hemoglobin. Platelet 242. BMP is unremarkable. Pulmonary and general surgery following. General surgery recommended to continue tube feeds at 20 cc/h. 11/24/2023--patient reported significant abdominal discomfort, also noted to have leak around G-tube. General surgery is following, evaluated the patient at bedside, adjusted tube feeds. Also reported having diarrhea, on 2 L oxygen, went up to 5 L. Blood pressure was low, 500 mL fluid bolus with close monitoring of respiratory status ordered. Currently on DuoNebs, Solu-Medrol, will continue Zosyn. Chest x-ray showed a left lower lobe infiltrate. Abdominal x-ray showed multiple air-fluid levels. CT abdomen showed multiple dilated small bowel loops, consistent with obstruction, pneumoperitoneum, cholelithiasis and ascites. WBCs 14.1, platelet 255, hemoglobin 8.9. NG tube in place. Family at bedside. patient transferred to SICU for close monitoring. 11/25/23--patient is currently in the ICU, required Levophed overnight due to low blood pressure, low urine output with creatinine trending up. Nephrology following. Pressure Testing Technician also following. Patient remains n.p.o., NG tube in place, following NG tube insertion patient had total of 2 L output, J-tube was draining approximately 200 cc over last 8 hours, continues to have abdominal pain and abdominal tenderness. Patient on IV fluids. Currently on 4 L oxygen. WBCs 8.2, hemoglobin 12.3, platelet 188. Chest x-ray earlier today showed right sided port and a stable left lung airspace disease, NG tube in place. Patient currently on Zosyn, on IV Dilaudid for pain control, on IV Solu-Medrol. General surgery planning for OR today, started on TPN. 11/26/23--patient was seen and examined today. Patient is currently sedated, intubated on mechanical ventilation. Family at bedside. Patient underwent ex lap, abdominal washout, small bowel resection with new feeding jejunostomy tube placement yesterday, small bowel was noted to be perforated with significant contamination of abdominal cavity. Patient is currently on vancomycin and Zosyn. Creatinine went up to 2.85, nephrology following, recommended to continue IV fluids, avoid nephrotoxin Preserved EF on echocardiogram.. Patient currently on Levophed, vasopressin in the ICU for close monitoring. Patient is afebrile, heart rate 122, blood pressure 129/76, currently on mechanical ventilation, sedated. November 26: ICU. Intubated. FiO2 60 and a PEEP of 5. Drips include IV amiodarone. Heart rate was up early did get fired microgram of IV digoxin and 2.5 mg of IV Lopressor. Did drop her blood pressure bit. Urine output was low. Received 80 mg of IV Lasix. Ahmet to 150 cc. Other drips include IV propofol, vasopressin, Levophed. TPN was started yesterday. Antibiotics include IV Zosyn and vancomycin. Patient has a J-tube to drainage to gravity. Spoke to patient's younger daughter and at the bedside. Prognosis guarded. Continue current treatment plan. Chest x-ray shows right lower lobe consolidation. Small pleural effusion. November 27: ICU. Intubated. FiO2 55 and a PEEP of 5. Antibiotics include IV vancomycin. Drips include Levophed at a small dose, IV vasopressin, propofol, amiodarone. Patient converted to sinus rhythm this morning. Getting TPN and normal saline at 75 cc an hour. Urine output about 25 cc an hour. RAYA drain put out about 260 cc last 12 hours that is last material handler 2nd shift. NG tube with bilious output. And also GI J-tube output to gravity. Spoke to patient's and daughter at the bedside. They understand patient still not out of the kee. Platelets have dropped-therefore probably Zosyn stopped. November 28: ICU. Intubated. FiO2 55 and a PEEP of 5. Patient is in sinus rhythm. Seen this morning. Due for dialysis catheter this afternoon. Urine output about 15 to 20 cc an hour. Patient is on IV Lasix 80 mg every 12. Saline is KVO. Drips include IV propofol vasopressin. Patient having significant output through the RAYA drain and the jejunostomy tube to drainage. Creatinine had been getting worse. Patient's at the bedside. Understands patient's remains critically ill. Hemoglobin is down to 7. Given that patient's pain hypotensive, and on vasopressin we will give a unit of blood with dialysis. Getting TPN antibiotic changed to IV meropenem November 29: ICU. Intubated. FiO2 55 and a PEEP of 5. Remains in sinus rhythm. Getting TPN. Dialyzed yesterday and this morning. About 1000 cc removed. Urine output about 50 cc an hour. Patient is on IV propofol. Off vasopressin. Still having significant output through the RAYA drain and jejunostomy tube. Patient received a second unit of blood yesterday. Patient's and daughter at the bedside. I did discuss guarded prognosis. Did asked them to revisit CODE STATUS.. Getting IV meropenem. November 30: ICU. Intubated. Did get a sedation holiday t today. Back on propofol. Getting TPN. Still getting IV Lasix. Fair urine output. Jejunostomy tube in last 8 hours was about 30 cc output. RAYA drain in the 8 hours had about 180 cc output. Telemetry shows sinus rhythm. NG tube has low intermittent suction with negative output. On the vent with FiO2 40 and a PEEP of 5. No hemodialysis today. Discussed with the and eldest daughter at the bedside. IV meropenem-patient's sputum had grown Citrobacter freundii and Pseudomonas aeruginosa. December 01: ICU. Intubated. Jejunostomy tube to gravity. Only 10 cc output in last 24 hours. RAYA drain. About 190 cc last 6 hours. Nasogastric tube to low intermittent suction. Minimal output. Patient is on a small dose of propofol 5 mics. Telemetry shows sinus rhythm. Patient started on small dose of Cleviprex this morning. Blood pressure. Getting TPN. FiO2 35 and PEEP of 5. Discussed with the at the bedside. Hemodialysis today December 02: ICU. Patient remains intubated. FiO2 35 PEEP of 5. Patient is on IV propofol. IV Cleviprex was discontinued yesterday. Also remains on TPN. Telemetry shows sinus rhythm. NG tube is good no output. Still significant output through the RAYA drain. Jejunostomy tube has minimal output. Patient had hemodialysis today 2 L of fluid was removed. Oral half liters yesterday. Patient getting a sedation holiday. General Surgery started the patient on trickle feeding at 10 cc an hour. I did speak to patient's at the bedside. Prognosis remains guarded but there is some improvement. December 03: ICU. Intubated. FiO2 35 PEEP of 5. Drips include IV propofol and Precedex. Getting TPN. Telemetry shows sinus rhythm. Remains on IV Lasix 80 mg twice a day. IV meropenem. Because patient gets easily agitated when transitioning off propofol he has been switched over to Precedex. For hemodialysis today. December 04: ICU. Intubated. FiO2 35 and a PEEP of 5. Patient been taken off propofol is on Precedex. Telemetry sinus rhythm. J-tube with minimal output. RAYA drain with decreased output. NG tube to suction minimal output. Family wanted to hold off trickle feeding until cleared by oncology. Which he did today. Trickle feeding will be started today. Spoke to patient's and one of the daughters at the bedside. Dr. Russ is spoken to the earlier this point they want to do further tracheostomy tube. The eighth at Active Medications Acetaminophen (Acetaminophen Tab 325 Mg Tab) 650 mg PO Q4HR PRN PRN Reason: Fever and/ or Pain Last Admin: 11/22/23 08:46 Dose: 650 mg Acetaminophen (Acetaminophen Oral Susp (Peds) 3,840 Mg/120 Ml Bottle) 480 mg PO Q4HR PRN PRN Reason: Fever Albuterol/Ipratropium (Ipratropium-Albuterol 3 Ml Neb) 3 ml INHALATION RT-QID NIRMAL Last Admin: 12/05/23 15:13 Dose: 3 ml Albuterol/Ipratropium (Ipratropium-Albuterol 3 Ml Neb) 3 ml INHALATION RT-Q2H PRN PRN Reason: Shortness Of Breath Or Wheezing Last Admin: 12/03/23 03:45 Dose: 3 ml Chlorhexidine Gluconate (Chlorhexidine Gluconate 15 Ml Cup) 15 ml MUCOUS MEM BID [facility] Last Admin: 12/05/23 09:22 Dose: 15 ml Dextrose/Water (Dextrose 50% Syringe 50 Ml) 25 ml IVP PER PROTOCOL PRN; Protocol PRN Reason: Hypoglycemia Dextrose/Water (Dextrose 50% Syringe 50 Ml) 50 ml IVP PER PROTOCOL PRN; Protocol PRN Reason: Hypoglycemia Furosemide (Furosemide 10 Mg/Ml 10 Ml Vial) 80 mg IV Q12H [facility] Last Admin: 12/05/23 05:12 Dose: 80 mg Hydromorphone HCl (Hydromorphone 0.5 Mg/0.5 Ml Syringe) 0.5 mg IVP Q6HR PRN PRN Reason: Pain Last Admin: 12/04/23 22:24 Dose: 0.5 mg Propofol 1,000 mg/ IV Solution 100 mls @ 9.36 mls/hr IV .[id number] [facility]; Protocol Last Titration: 12/05/23 11:11 Dose: 0 mcg/kg/min, 0 mls/hr Sodium Chloride (Saline 0.9%) 1,000 mls @ 20 mls/hr IV .Q24H [facility] Last Admin: 12/05/23 13:41 Dose: Not Given Meropenem 1 gm/ Sodium (Chloride) 100 mls @ 33.333 mls/hr IVPB HS [facility] Last Admin: 12/04/23 20:12 Dose: 33.333 mls/hr Dexmedetomidine HCl 400 mcg/ (IV Solution) 100 mls @ 5.485 mls/hr IV .[id number] [facility]; Protocol Last Titration: 12/05/23 15:10 Dose: 0.6 mcg/kg/hr, 16.455 mls/hr Norepinephrine Bitartrate 8 mg (/ Sodium Chloride) 258 mls @ 6.368 mls/hr IV .Q24H [facility]; Protocol Last Admin: 12/05/23 13:40 Dose: Not Given Parenteral Vitamin Supplement 10 ml/ Zinc/Copper/Manganese/Selenium 1 ml/ Sodium Acetate 60 meq/ Sodium Chloride 44 meq / Potassium Chloride 14 meq/Calcium Gluconate 2 gm/Magnesium Sulfate 0.25 gm/Amino Acids/Dextrose 1,079.5 mls @ 75 mls/hr IV .BY DURATION [facility] Sodium Acetate 60 meq/ Sodium Chloride 44 meq/ Potassium Chloride 14 meq/ Calcium Gluconate 2 gm/ Magnesium Sulfate 0.25 gm/ Amino Acids/Dextrose 1,068.5 mls @ 75 mls/hr IV .BY DURATION [facility] Insulin Aspart (Insulin Aspart (Novolog) 100 Unit/Ml Vial) 0 unit SQ 0000,0600,1200,1800 [facility]; Protocol Last Admin: 12/05/23 13:43 Dose: 2 unit Insulin Detemir (Insulin Detemir (Levemir) 100 Unit/Ml Syr) 24 unit SQ DAILY@0700 [facility] Last Admin: 12/05/23 06:58 Dose: 24 unit Methylprednisolone Sodium Succinate (Methylprednisolone Sod Succi 40 Mg/Ml 1 Ml Vial) 40 mg IV DAILY@1800 [facility] Last Admin: 12/04/23 17:29 Dose: 40 mg Metoprolol Tartrate (Metoprolol Tartrate 5 Mg/5 Ml Vial) 2.5 mg IVP Q6HR PRN PRN Reason: Heart Rate - HIGH Last Admin: 11/27/23 08:25 Dose: 2.5 mg Miscellaneous Information (Magnesium Replacement Protocol 1 Each Misc) 1 each MISCELLANE DAILY PRN; Protocol PRN Reason: Per Protocol Naloxone HCl (Naloxone 0.4 Mg/Ml 1 Ml Vial) 0.2 mg IV Q2M PRN PRN Reason: Opioid Reversal Pantoprazole Sodium (Pantoprazole 40 Mg/10 Ml Vial) 40 mg IVP BID [facility] Last Admin: 12/05/23 09:21 Dose: 40 mg Past medical history to include: GERD Social history: . No smoking. Physical examination: VITAL SIGNS: 98, 72, 20, 115 x 55, 99% on the vent GENERAL: Sedated, right chest wall port EYES: Pupils equal. Conjunctiva edouard l. HEENT: External appearance of nose and ears normal, oral cavity-endotracheal tube. NG tube-low intermittent suction NECK: JVD unable to assess; masses not palpable. HEART: First and second heart sounds are normal; edema, present LUNGS: Respiratory rate increased, decreased breath sounds ABDOMEN: Soft, nontender, liver spleen not palpable, no masses palpable..jejunostomy tube-attached to gravity. RAYA drain. Incision with stitches PSYCH: Sedated INVESTIGATIONS, reviewed in the clinical context: Small bowel resection [December 01]: Ischemic active enteritis with focal necrosis and perforation. Serosal fibrous adhesions. Viable margins. December 04: White count 10.2 hemoglobin 8 platelets 90 sodium 130 potassium 4 BUN 70 creatinine 2.89 Sputum culture: [November 25]: Citrobacter freundii. Pseudomonas aeruginosa November 20: White count 14.4 hemoglobin 8.8 platelets 229 potassium 4.1 BUN [address] scan abdomen [November 19] possible small bowel obstruction Stool: C. difficile negative November 16: White count 9.1 hemoglobin 7.9 platelets 259 potassium 4.3 creatinine 0.92 November 15: WBC 13 hemoglobin 7.7 platelets 248 potassium 4.3 creatinine 0.87 2D echo: EF 55 to 60%. November 14: White count 10.7 hemoglobin 7.5 platelets 239 potassium 4.2 creatinine 0.96 Kidneys bladder: Unremarkable November 13: White count 12 hemoglobin 6.9 platelets 276 potassium 4.4 creatinine 1.21 magnesium 1.8 iron 6 TIBC 365% saturation 1.64 transferrin 261 ferritin 34.6 B12 569 folate 4.4 November 11: Creatinine 0.86 EGD: Large amount of retained solid liquid food noted in the stomach. Large superficial gastric antral ulceration involving most of the antrum extending into the pylorus causing pyloric stenosis. Biopsies were obtained. Chest x-ray film personally reviewed by me-scattered infiltrates Assessment plan: -Aspiration pneumonitis bilateral from retained gastric contents mostly food and liquids, causing acute hypoxic respiratory failure: Subsequent sputum culture November 25: Citrobacter freundii, Pseudomonas aeruginosa IV meropenem Pulmonary following -Acute pulmonary edema and fluid overload from hypoalbuminemic state and fluids from IV.:: Has been getting Lasix and dialysis -Small l bowel perforation at site of jejunostomy tube tip with balloon..: Portion of small bowel resected. On November 24. New J-tube was placed.- drainage to gravity:-Minimal output Trickle feeding was restarted but family wanted to hold off.-This will be started today -Acute kidney injury. Possible ATN from hypotensive shock: Slow to respond Renal ultrasound unremarkable. Started on renal replacement therapy on November 28. Followed by nephrology -Nutrition Jejunostomy tube placed November [address] Ewing Getting TPN. Trickle feeds was to be started 2 days ago will be started today because of family request as it want to get an okay from oncology -Acute recurrent atrial fibrillation-converted to sinus rhythm Received IV amiodarone. Cardiology following Lopressor -Acute hypoxic respiratory failure from aspiration pneumonia, status post ventilator assisted: Reintubated November 25. FiO2 50 PEEP of 5 Getting sedation holiday -Septic shock, recovered -Hypertension Patient started on Cleviprex-discontinued -Normocytic anemia likely to secondary underlying lymphoma. Also anemia of blood draw. Iron deficiency anemia Received 2 unit of blood. IV iron. -Severe thrombocytopenia. Would consider coagulation disorder secondary to infection., In the setting of underlying lymphoma.: Slow to respond Hematology following. -Acute blood loss anemia, Received 2 units of blood -GERD PPI -Acute diarrhea secondary to tube feeding.: Resolved C. difficile ruled out. -Large superficial gastric antral ulceration involving the gastric antrum extending into the pylorus with gastric outlet obstruction. 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 Port placed. For outpatient PET scan. -Full code No hemodialysis today. Trickle feeding will be started today. Discussed with and the daughter at the bedside. Past Medical History Past Medical History: GERD/Reflux History of Any Multi-Drug Resistant Organisms: None Reported Past Surgical History: Heart Catheterization Additional Past Surgical History / Comment(s): colonsocopy,spinal injection, Past Anesthesia/Blood Transfusion Reactions: No Reported Reaction Past Psychological History: No Psychological Hx Reported Smoking Status: Never smoker Past Alcohol Use History: None Reported Past Drug Use History: None Reported
[2023-12-05 18:43] LABS: Glucose,Whole Blood 191 mg/dL (70-110)
--- NOTE | 2023-12-05 21:16 | P.PN ---
Subjective Patient seen and evaluated at bedside. Patient doing much better, no overnight events. Objective - Vital Signs Vital signs: Vital Signs Temp 99.4 F 12/05/23 20:00 Pulse 73 12/05/23 21:00 Resp 27 H 12/05/23 21:00 BP 138/74 12/05/23 21:00 Pulse Ox 100 12/05/23 21:00 FiO2 35 12/05/23 20:00 Intake & Output 12/05/23 12/05/23 12/06/23 06:59 18:59 06:59 Intake Total 5787.971 7078.855 309 Output Total 5430 1280 485 Balance -3610.491 6.855 -176 Weight 111.7 kg Intake: IV 1057 456 264 0.9 KVO 120 120 30 Meropenem 1 gm In Sodium 100 Chloride 0.9% 100 ml @ 33 .333 mls/hr IVPB HS [facility] Rx#:[id number] Mvi, Adult No.4 with Vit 375 K 10 ml Trace (Conc-1Ml/ Dose) 1 ml Sodium Acetate 30 meq Potassium Acetate 10 meq Calcium Gluconate 1 gm In Amino Acids 5 %/ Dextrose 20 % 1,000 ml @ 75 mls/hr IV .BY DURATION [facility] Rx#:[id number] Normal Saline Pressure 12 36 9 Saline Sodium Acetate 60 meq 450 Potassium Chloride 14 meq Calcium Gluconate 1.5 gm Magnesium Sulfate gm 0. 25 gm In Amino Acids 5 %/ Dextrose 20 % 1,000 ml @ 75 mls/hr IV .BY DURATION [facility] Rx#:[id number] mvi tpn 300 225 Intake, IV Titration 112.509 775.855 Amount Dexmedetomidine/0.9% NaCl 100.000 (Pmx) 400 mcg In Empty Bag 1 bag @ 0.2 MCG/KG/HR 5.485 mls/hr IV .[id number] [facility] Rx#:[id number] Norepinephrine 8 mg In 2.724 0 Sodium Chloride 0.9% 250 ml @ 0.03 MCG/KG/MIN 6. 368 mls/hr IV .Q24H [facility] Rx#:[id number] Sodium Acetate 60 meq 600 Sodium Chloride 4Meq/ml Vial 44 meq Potassium Chloride 14 meq Calcium Gluconate 2 gm Magnesium Sulfate gm 0.25 gm In Amino Acids 5 %/Dextrose 20 % 1,000 ml @ 75 mls/hr IV .BY DURATION [facility] Rx#: [id number] propofoL 1,000 mg In 109.785 75.855 Empty Bag 1 bag @ 20 MCG/ KG/MIN 9.36 mls/hr IV . [id number] [facility] Rx#:[id number] Tube Feeding 25 15 Hemodialysis 650 Other 30 30 Output: Drainage 150 160 Left Abdomen 50 50 Right Abdomen 100 110 Urine 930 1120 485 Hemodialysis 2500 Hemodialysis Net Amount 1850 Other: Voiding Method Indwelling Catheter Indwelling Catheter Indwelling Catheter ABP, PAP, CO, CI - Last Documented Arterial Blood Pressure 151/71 - Exam gen: nad cv: rrr pul: non labored abd: soft, non tender to palpation, surgical incisions c/draining - Labs CBC & Chem 7: 12/05/23 04:15 12/05/23 04:15 Labs: Abnormal Lab Results - Last 24 Hours (Table) 12/05/23 12/05/23 12/05/23 Range/Units 00:01 04:15 04:15 RBC 2.92 L (4.30-5.90) m/uL Hgb 8.0 L (13.0-17.5) gm/dL Hct 25.0 L (39.0-53.0) % RDW 19.7 H (11.5-15.5) % Plt Count 90 L (150-450) k/uL Neutrophils # 9.0 H (1.3-7.7) k/uL Lymphocytes # 0.7 L (1.0-4.8) k/uL ABG pH (7.35-7.45) ABG HCO3 (21-25) mmol/L ABG Total CO2 (19-24) mmol/L ABG O2 Saturation (94-97) % Sodium 130 L (137-145) mmol/L BUN 70 H (9-20) mg/dL Creatinine 2.89 H (0.66-1.25) mg/dL Glucose 209 H (74-99) mg/dL POC Glucose (mg/dL) 210 H (70-110) mg/dL Calcium 7.3 L (8.4-10.2) mg/dL Ionized Calcium Krystal 4.3 L (4.5-5.3) mg/dL 12/05/23 12/05/23 12/05/23 Range/Units 05:06 05:11 12:15 RBC (4.30-5.90) m/uL Hgb (13.0-17.5) gm/dL Hct (39.0-53.0) % RDW (11.5-15.5) % Plt Count (150-450) k/uL Neutrophils # (1.3-7.7) k/uL Lymphocytes # (1.0-4.8) k/uL ABG pH 7.48 H (7.35-7.45) ABG HCO3 27 H (21-25) mmol/L ABG Total CO2 29 H (19-24) mmol/L ABG O2 Saturation 98.1 H (94-97) % Sodium (137-145) mmol/L BUN (9-20) mg/dL Creatinine (0.66-1.25) mg/dL Glucose (74-99) mg/dL POC Glucose (mg/dL) 212 H 186 H (70-110) mg/dL Calcium (8.4-10.2) mg/dL Ionized Calcium Krystal (4.5-5.3) mg/dL 12/05/23 Range/Units 18:42 RBC (4.30-5.90) m/uL Hgb (13.0-17.5) gm/dL Hct (39.0-53.0) % RDW (11.5-15.5) % Plt Count (150-450) k/uL Neutrophils # (1.3-7.7) k/uL Lymphocytes # (1.0-4.8) k/uL ABG pH (7.35-7.45) ABG HCO3 (21-25) mmol/L ABG Total CO2 (19-24) mmol/L ABG O2 Saturation (94-97) % Sodium (137-145) mmol/L BUN (9-20) mg/dL Creatinine (0.66-1.25) mg/dL Glucose (74-99) mg/dL POC Glucose (mg/dL) 191 H (70-110) mg/dL Calcium (8.4-10.2) mg/dL Ionized Calcium Krystal (4.5-5.3) mg/dL Assessment and Plan Assessment: 73 yo male s/p j tube insertion -ok to start trickle feeds Time with Patient: Less than 30
[2023-12-05 23:34] LABS: Glucose,Whole Blood 225 mg/dL (70-110)
[2023-12-06 04:55] LABS: Anisocytosis Moderate; Basophils % (A) 0 %; Eosinophils % (A) 0 %; HCT 25.4 % (39.0-53.0); HGB 7.9 gm/dL (13.0-17.5); Hypochromasia Slight; Lymphocytes # (A) 0.8 k/uL (1.0-4.8); Lymphocytes % (A) 7 %; MCH 26.8 pg (25.0-35.0); MCHC 31.2 g/dL (31.0-37.0); MCV 85.9 fL (80.0-100.0); Monocytes # (A) 0.4 k/uL (0-1.0); Monocytes % (A) 4 %; Neutrophils # (A) 10.5 k/uL (1.3-7.7); Neutrophils % (A) 89 %; Platelet Count 107 k/uL (150-450); RBC 2.95 m/uL (4.30-5.90); WBC 11.8 k/uL (3.8-10.6)
[2023-12-06 04:56] LABS: African American GFR (CKD) 18 (>60 ml/min/1.73 sqM); Anion Gap 5 mmol/L; Blood Urea Nitrogen 92 mg/dL (9-20); Calcium 7.3 mg/dL (8.4-10.2); Carbon Dioxide 24 mmol/L (22-30); Chloride 101 mmol/L (98-107); Glucose 260 mg/dL (74-99); Magnesium 1.8 mg/dL (1.6-2.3); Non-African American GFR(CKD) 15 (>60 ml/min/1.73 sqM); Phosphorus 4.6 mg/dL (2.5-4.5); Potassium 3.9 mmol/L (3.5-5.1); Sodium 130 mmol/L (137-145)
[2023-12-06 05:17] LABS: ABG Base Excess 2.1 mmol/L; ABG HCO3 26 mmol/L (21-25); ABG Oxygen Saturation 98.7 % (94-97); ABG PCO2 36 mmHg (35-45); ABG PH 7.47 (7.35-7.45); ABG PO2 103 mmHg (83-108); ABG TCO2 27 mmol/L (19-24); Allen Test Performed? Yes
[2023-12-06 06:14] LABS: Glucose,Whole Blood 226 mg/dL (70-110)
[2023-12-06 07:01] LABS: Glucose,Whole Blood 164 mg/dL (70-110)
--- NOTE | 2023-12-06 08:39 | XR ---
EXAMINATION TYPE: XR chest 1V DATE OF EXAM: 12/06/2023 COMPARISON: 12/05/2023 HISTORY: SOB, Follow Up FINDINGS: Indwelling tubes and catheters are unchanged. No change in scattered opacities. Stable appearance of the cardio-mediastinal structures at this time. Pleural effusion unchanged. IMPRESSION: 1. Stable portable chest. Clinical correlation and follow up until resolution is recommended. [facility], , 12/06/2023 8:37 AM
--- NOTE | 2023-12-06 12:41 | P.PN ---
Subjective Progress Note Date: 12/06/23 Principal diagnosis: Acute hypoxic respiratory failure requiring intubation mechanical ventilation secondary to aspiration. This is a 73-year-old white male with history of chronic abdominal pain for the last 8 months has been treated with Protonix 40 mg daily for the last 3 months with no improvement. Patient had a 22 pound weight loss in the last [address] of the abdomen and pelvis 3 weeks ago showed thickening of the antral wall with pathological adenopathy posterior to the stomach suspicious of neoplasm. Today the patient underwent elective upper endoscopy to evaluate further, patient received IV sedation by anesthesia endoscope was inserted into the mouth, esop hagus was intubated without any difficulty there was evidence of large amount of liquid and solid food noted in the stomach suggestive of gastric outlet obstruction. Scope could not be advanced through the pylorus, however in the prepyloric area there was a large superficial ulceration identified with multiple biopsies were done from this area. The body cardia and fundus could not adequately visualize because of large amount of retained food in the stomach. Scope was withdrawn back to the stomach and upon careful examination the mucosa of the antrum body and cardia as well as the fundus appeared normal. Procedure was being performed and biopsies were done patient threw up and subsequently became hypoxic there was clearly evidence of witnessed aspiration anesthesia intubated the patient, procedure was terminated, and the patient was transferred to the ICU, this consult was initiated. Patient is now on assist- control rate of 20 tidal volume 500 FiO2 70% PEEP of 10 ABG is pending, earlier ABG showed profound hypoxia patient is on propofol at 50 mcg/kg/min, next ABG is pending. Chest x-ray showed chronic changes without evidence of acute pulmonary disease. Patient was evaluated today on 11/17/2023, patient underwent uneventful placement of a jejunostomy tube yesterday, in the ICU on 5 L, patient is relatively stable, not in any distress, patient continues to have nasogastric tube in place although he did have a J-tube placed yesterday. Patient was seen by oncology for his non-Hodgkin's lymphoma involving the gastric outlet. Today's x-ray showed evidence of pneumonia/bilateral interstitial infiltrate/edema patient was given a dose of Lasix, I reminded the patient had an aspiration episode which was significant. And he required intubation mechanical ventilation for a few days.WBC count today is 9.1 hemoglobin 7.9 electrolytes are normal renal profile is normal hence I plan to transfer the patient out of the ICU to a cardiac floor. And hopefully discharge planning in the next 2 days for On 11/29/2023, the patient is being seen for a follow-up. Remains intubated on the mechanical ventilator. The patient sedated on propofol which is running at 35 mcg/kg/min. Synchronous with mechanical ventilator. On today's evaluation, he is on assist-control mode with rate of 28, tidal volume of 550, FiO2 55% with a PEEP of 5. Chest x-ray shows lower lobe consolidation bilaterally worse on the right and the orotracheal tube is in good location. The blood gas showed a pH of 7.34 with a pCO2 of 35 and a pO2 of 84. No significant orotracheal secretions. Hemodynamically improved compared to yesterday. In fact, the patient is on minimal norepinephrine that was discontinued earlier this morning. The patient has converted to normal sinus rhythm. Remains on amiodarone at 0.5 mg/min. Overall fluid balance over the past 24 hours is 2.4 L positive. Urine output has been adequate and the patient is currently on IV Lasix. Nevertheless, the patient has developed progressive worsening renal function. Creatinine is up to 5.3 on today's evaluation with a potassium level of 4.4. Serum bicarb is at 18 with an anion gap of 9. WBC count is at 8.1 with a hemogl obin of 7 and a platelet count of 32 which has dropped compared to earlier evaluation. The rest of the coagulation profile was normal from 11/28/2023. Fibrinogen level is slightly elevated. Sputum samples have shown a combination of Citrobacter and Pseudomonas aeruginosa. Based on cultures and sensitivities, the patient will be taken off his IV Zosyn and he will be switched to IV meropenem. Output from the J-tube is fecal. Output from the NG tube is gastric and surgical wound site is dry clean and intact. He is afebrile for now. Hemodynamically, the patient is doing better. He remains on TPN for nutritional support. IV fluids are also running at a rate of 75 cc an hour. Remains on vancomycin. 11/22/2023, the patient is being seen for a follow-up. The patient remains on propofol at 50 mcg/kg/min. Ventilator settings are essentially unchanged. The patient remains on assist-control mode with rate of 18, tidal volume of 400, FiO2 50% with a PEEP of 5. The blood gas showed a pH of 7.37 with a pCO2 of 43 and pO2 of 127. Chest x-ray shows no significant interval change. Patient remains on normal saline at rate of 75 cc an hour and TPN at rate of 35 cc an hour. Fluid balance is positive. Hemodialysis was performed yesterday and the second session of hemodialysis to be done today. The patient's urine output is in the order of 20 to 30 cc an hour. The patient has an NG output of 350 cc for yesterday and the drainage from the J-tube is in the order of 400 cc over the past 24 hours. The blood work shows a WBC count of 10.8, hemoglobin 8.1 and platelet count of 41. Platelet counts are essentially stable and slightly improved compared to yesterday. The sodium level is at 133, potassium is at 4.3, BUN is 93 with a creatinine of 3.6. LFTs are within normal limits. Albumin is down to 2.1. The patient is currently on no pressors. Norepinephrine and vasopressin are both discontinued and the patient remains in normal sinus rhythm. No other significant events overnight. Family has been updated on his condition. Antibiotic coverage is currently with IV meropenem. Vancomycin and Zosyn have been both discontinued. On 12/01/2023, the patient remains sedated on propofol which is running at 25 mcg/kg/min., Comfortable and synchronous mechanical ventilator. The patient remains on assist-control mode rate of 28, tidal volume of 550, FiO2 40% and PEEP of 5. Blood gas shows a pH of 7.49 with a pCO2 of 34 and pO2 of 121. Patient underwent hemodialysis yesterday. No plans for hemodialysis today the patient is producing urine output. Remains on TPN for nutrition support rate of 75 cc an hour. IV fluids are currently at KVO. The chest x-ray from today shows bilateral lower lobe consolidation worse on the right. No significant change in the volume status. The patient continues to have third spacing and edema in all 4 extremities. Nevertheless, urine output is adequate at this point in time and the patient remains on Lasix 80 mg IV every 12 hours. Remains NPO. NG tube and J-tube are both drainage. Output is noted. Remains on IV meropenem. Afebrile. Currently on no pressors. Blood work shows a WBC count of 11.4, hemoglobin of 8.1 and platelet count of 46. Sodium is at 131, potassium level is at 3.7, chloride 101 and bicarb is at 24. BUN is 84 with a creatinine of 3.6. Glucose of 228. LFTs are within normal limits. Patient was reevaluated today on 12/02/23, patient remains in the ICU, patient is familiar to my service, I saw this patient 3 weeks ago. Since then he had a very complicated hospital course, related to his jejunostomy tube dislodging and leaking and picture of abdominal sepsis and worsening pneumonia/ARDS. Patient had to be placed back on mechanical ventilation, and he is now intubated and mechanically ventilated. He is on assist-control rate of 20 tidal volume 550 FiO2 40% PEEP of 5 ABG showed a pO2 of 111 pCO2 38 pH of 7.43 and I cut down his FiO2 to 35% and increase his flow rate from 60-70. Patient remains on TPN at 75 cc/h he is on propofol at 25 mcg/kg/min patient is on Cleviprex which I added today for elevated blood pressure. Receiving Lasix 80 mg every 12 hours is also on Merrem as per infectious disease. Patient is on hemodialysis and being followed by nephrology. Patient required multiple abdominal surgeries since his initial admission. Chest x-ray continues to show worsening pneumonia involving both lungs, right more so than left, I suspect there may be a component of ARDS. His initial presentation was the presentation of aspiration pneumonia to begin with and that was 3 weeks agoWBC count is 10.3 hemoglobin 8.6 sodium 131 potassium 4 chloride 100 bicarb 23 BUN is 111 creatinine 4.02 blood sugar is 248. Albumin is 1.9 Patient was evaluated today on , patient remains in the ICU, intubated and mechanically ventilated. Patient is on assist-control rate of 20 tidal volume 550 FiO2 35% and PEEP of 5 ABG showed a pO2 of 99 pCO2 39 pH of 7.44 patient is undergoing hemodialysis today, and the plan is to remove 2 L. He is remains on propofol at 35 mcg/kg/min, remains on TPN at 75 cc/h. Remains on Merrem. Patient is not requiring any pressors today. Yesterday patient did not tolerate to be off sedation long enough, and today we tried the same sedation in terruption, and the patient did not do well post interruption of sedation, became extremely agitated restless, tachycardic, and could not fully assess mental status off sedation. Hence the patient was placed back on AC mode of mechanical ventilation, and the plan is to continue the same supportive care measures. Family updated on his condition and most likely the patient will end up requiring tracheostomy in the next few days.WBC count is 8.5 hemoglobin 8.2 basic metabolic profile is relatively unremarkable BUN is 89 creatinine 3.45 chest x-ray today showed stable chest, suspect some right-sided pleural effusion which would likely improve with hemodialysis/ultrafiltration. X-ray of abdomen showed nonspecific nonobstructive bowel gas pattern Patient was seen today on 12/04/2023, remains in the ICU, intubated mechanically ventilated, on assist-control rate of 20 tidal volume 550 FiO2 35% PEEP of 5 ABG showed a pO2 of 112 pCO2 38 pH of 7.45, hence no changes were made in ventilator settings. Patient is on propofol at 35 mcg/kg/min he is also on IV fluid at KVO TPN at 75 cc/h. Remains on hemodialysis remains on Lasix 80 mg IV push twice daily, remains on Merrem. This x-ray continues to show the same findings/airspace disease in both lungs, not much of a change in the last 2 day s, however his oxygenation seems to be improved. WBC count is 7.1 hemoglobin 7.7. Electrolytes are normal, BUN is elevated 77 creatinine 3.32, patient is on hemodialysis. His condition was discussed today with the at bedside, and I do not believe the patient is ready to be weaned or extubated, however he seems to get extremely agitated when he goes off propofol, today I plan to transition propofol to Precedex, give him a trial on Precedex and determine whether the patient becomes more appropriate and at least ready for any weaning trials. Clinically I doubt if this will happen but we will go ahead and try Patient was evaluated today on 12/05/2023, remains in the ICU, intubated mecha nically ventilated, not much of a change noted in the last 24 hours. Remains on assist-control of 20 tidal volume 550 FiO2 35% PEEP of 5 ABG showed a pO2 of 90 pCO2 37 pH of 7.48 hence chose not to change any of his ventilator settings. Yesterday the patient failed again trial of weaning, and he was never anywhere near ready to be weaned in spite of placing him on Precedex and off propofol, at 1 point the patient became extremely agitated restless and he was biting on the endotracheal tube could not fully awake the patient and determine improvement in his mental status. Hence patient was placed back on propofol yesterday and he remains on propofol today. He is on propofol at 25 mcg/kg/min he is on TPN at 75 cc/h surgery is considering starting his J-tube feedings today. Remains on hemodialysis remains on Merrem remains on Lasix 80 mg IV push twice daily overall not much of a change his chest x-ray is basically about the same showing bibasilar airspace disease. Today I had a discussion with the regarding the option of tracheostomy extremely reluctant to have it done yet. Said that the patient had multiple complications with previous surgeries and she is afraid that he is going to have another complication with the surgeryWBC count is 10.2 hemoglobin is 8, basic metabolic profile is normal sodium 130 BUN 70 creatinine 2.89 Patient was seen today on 12/25, remains in the ICU, intubated mechanically ventilated, his ventilator settings are assist-control rate 20 tidal volume 550 FiO2 35% and PEEP of 5 ABG showed a pO2 of 103 pCO2 36 pH of 7.47 patient opens eyes but does not follow any other instructions. He is now off propofol for the last 24 hours, he is maintained on Precedex at 0.4, TPN at 75 cc/h vital AF at 5 mL/h. Patient remains on Merrem, patient did not receive dialysis today because issues related to occluded dialysis catheter. Nonetheless the patient is making urine, and continues to improve with diuretics. Chest x-ray continues to show bibasilar airspace disease, not much of a change control specialist the last 1 week.WBC count today is 11.8 hemoglobin is 7.9.Basic metabolic profile is normal BUN is 92 creatinine 3.74. Blood sugar is 226. Family is at bedside, considering his overall mental status at this point, not quite ready to start checking weaning parameters, and is not ready for weaning. Nonetheless I plan to keep him on Precedex, and hopefully avoid narcotics and other sedatives. His mentation starts clearing a bit more, then will start trials of weaning parameters and/or weaning trials Objective - Vital Signs Vital signs: Vital Signs Temp 98.2 F 12/06/23 08:00 Pulse 67 10/04/24 12:00 Resp 22 12/06/23 12:00 BP 132/85 12/06/23 08:00 Pulse Ox 100 12/06/23 12:00 FiO2 35 12/06/23 11:02 Intake & Output 12/05/23 12/06/23 12/06/23 18:59 06:59 18:59 Intake Total 5850.171 9919.963 658.987 Output Total 1280 1635 920 Balance 6.855 -240.037 -261.013 Weight 110.5 kg 110.5 kg Intake: IV 456 1056 528 0.9 KVO 120 120 60 Normal Saline Pressure 36 36 18 Saline TPN 375 mvi tpn 300 900 75 Intake, IV Titration 775.855 188.963 70.987 Amount Dexmedetomidine/0.9% NaCl 100.000 188.963 70.987 (Pmx) 400 mcg In Empty Bag 1 bag @ 0.2 MCG/KG/HR 5.485 mls/hr IV .[id number] [facility] Rx#:[id number] Norepinephrine 8 mg In 0 Sodium Chloride 0.9% 250 ml @ 0.03 MCG/KG/MIN 6. 368 mls/hr IV .Q24H [facility] Rx#:[id number] Sodium Acetate 60 meq 600 Sodium Chloride 4Meq/ml Vial 44 meq Potassium Chloride 14 meq Calcium Gluconate 2 gm Magnesium Sulfate gm 0.25 gm In Amino Acids 5 %/Dextrose 20 % 1,000 ml @ 75 mls/hr IV .BY DURATION [facility] Rx#: [id number] propofoL 1,000 mg In 75.855 Empty Bag 1 bag @ 20 MCG/ KG/MIN 9.36 mls/hr IV . [id number] [facility] Rx#:[id number] Tube Feeding 25 60 30 Other 30 90 30 Output: Drainage 160 140 60 Left Abdomen 50 Right Abdomen 110 140 60 Urine 1120 1495 860 Other: Voiding Method Indwelling Catheter Indwelling Catheter Indwelling Catheter ABP, PAP, CO, CI - Last Documented Arterial Blood Pressure 161/68 - Exam General: Revealed 73-year-old white male intubated, mechanically ventilated, sedated, on Precedex, off propofol. Skin: Skin is warm and dry and no rashes or lesions are noted. Eye: Pupils are equal, round and reactive to light, extra-ocular movements are intact; there is normal conjunctiva bilaterally. Ears, nose, mouth and throat: There are moist mucous membranes and no oral lesions. Neck: The neck is supple, there is no tenderness or JVD. Cardiovascular: There is a regular rate and rhythm. No murmur, rub or gallop is appreciated. Respiratory: Diminished breath sounds and crackles at the bases no rhonchi no wheezes Gastrointestinal: J-tube is noted RAYA drain is noted NG tube is in place mild abd ominal distention, no rebound, no guarding, no bowel sounds, no significant leak noted from the tubes in the abdomen. Musculoskeletal: No deformities and no limitation range of motion Neurological: Opens eyes but does not follow any instructions Extremities patient has 1+ bipedal edema. - Labs CBC & Chem 7: 12/06/23 04:20 12/06/23 04:20 Labs: Abnormal Lab Results - Last 24 Hours (Table) 12/04/23 12/05/23 12/05/23 Range/Units 17:56 18:42 23:32 WBC (3.8-10.6) k/uL RBC (4.30-5.90) m/uL Hgb (13.0-17.5) gm/dL Hct (39.0-53.0) % RDW (11.5-15.5) % Plt Count (150-450) k/uL Neutrophils # (1.3-7.7) k/uL Lymphocytes # (1.0-4.8) k/uL ABG pH (7.35-7.45) ABG HCO3 (21-25) mmol/L ABG Total CO2 (19-24) mmol/L ABG O2 Saturation (94-97) % Hemoglobin (13.0-17.5) gm/dL Sodium (137-145) mmol/L BUN (9-20) mg/dL Creatinine (0.66-1.25) mg/dL Glucose (74-99) mg/dL POC Glucose (mg/dL) 164 H 191 H 225 H (70-110) mg/dL Calcium (8.4-10.2) mg/dL Phosphorus (2.5-4.5) mg/dL 12/06/23 12/06/23 12/06/23 Range/Units 04:20 04:20 05:10 WBC 11.8 H (3.8-10.6) k/uL RBC 2.95 L (4.30-5.90) m/uL Hgb 7.9 L (13.0-17.5) gm/dL Hct 25.4 L (39.0-53.0) % RDW 20.0 H (11.5-15.5) % Plt Count 107 L (150-450) k/uL Neutrophils # 10.5 H (1.3-7.7) k/uL Lymphocytes # 0.8 L (1.0-4.8) k/uL ABG pH 7.47 H (7.35-7.45) ABG HCO3 26 H (21-25) mmol/L ABG Total CO2 27 H (19-24) mmol/L ABG O2 Saturation 98.7 H (94-97) % Hemoglobin 8.3 L (13.0-17.5) gm/dL Sodium 130 L (137-145) mmol/L BUN 92 H (9-20) mg/dL Creatinine 3.74 H (0.66-1.25) mg/dL Glucose 260 H (74-99) mg/dL POC Glucose (mg/dL) (70-110) mg/dL Calcium 7.3 L (8.4-10.2) mg/dL Phosphorus 4.6 H (2.5-4.5) mg/dL 12/06/23 Range/Units 06:13 WBC (3.8-10.6) k/uL RBC (4.30-5.90) m/uL Hgb (13.0-17.5) gm/dL Hct (39.0-53.0) % RDW (11.5-15.5) % Plt Count (150-450) k/uL Neutrophils # (1.3-7.7) k/uL Lymphocytes # (1.0-4.8) k/uL ABG pH (7.35-7.45) ABG HCO3 (21-25) mmol/L ABG Total CO2 (19-24) mmol/L ABG O2 Saturation (94-97) % Hemoglobin (13.0-17.5) gm/dL Sodium (137-145) mmol/L BUN (9-20) mg/dL Creatinine (0.66-1.25) mg/dL Glucose (74-99) mg/dL POC Glucose (mg/dL) 226 H (70-110) mg/dL Calcium (8.4-10.2) mg/dL Phosphorus (2.5-4.5) mg/dL Assessment and Plan Assessment: Impression: Acute hypoxic respiratory failure requiring intubation mechanical ventilation secondary to aspiration. Status post J-tube placement 11/16/2023, multiple complications since then related to the J-tube placement requiring multiple surgeries. 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 Continue nasogastric tube trickle feeds Continue TPN for nutritional support by surgery is considering starting enteral feeding today/through the J-tube Continue Merrem, cultures were noted. Continue dialysis Continue Lasix, patient continues to improve to diuretics. Avoid nephrotoxic drugs Continue GI and DVT prophylaxis Family was updated on his condition today, made aware that the patient is not quite ready for weaning I am hoping his mental status improves then we could start weaning parameters and or weaning trials. Remains critically ill Critical care time is over 30 Will continue to follow Time with Patient: Greater than 30
[2023-12-06] MEDS: IV FLUID CONTINUATION 350 ML IV ONE (12:44)
[2023-12-06] MEDS: LIDOCAINE 1% INJ 10MG/ML (20 ML MDV) SQ ONE (12:45)
[2023-12-06 14:01] LABS: Glucose,Whole Blood 159 mg/dL (70-110)
--- NOTE | 2023-12-06 14:56 | IR ---
EXAMINATION TYPE: IR cvc insert >=5 years DATE OF EXAM: 12/06/2023 1:24 PM COMPARISON: Pre Operative Images if available both CT/MRI or plain film CLINICAL INDICATION: Male, 73 years old with history of HD CATHETER INSERTION, 2.9 MINS FLT, 0.097GY; TECHNIQUE: IR cvc insert >=5 years, multiple fluoroscopic images provided for procedure. Total fluoroscopy time: 3.0 seconds Total submitted images to PACS: [id number] DAP: [id number] mGym2 Gycm2 uGym2 cGycm2 or equivalent. IMPRESSION: 1. Report was generated for administrative purposes only. 2. Please see the operative/procedural note for further details. [facility], Workstation: [facility], 12/06/2023 2:54 PM
--- NOTE | 2023-12-06 14:58 | P.PN ---
Subjective Patient is seen for follow-up for acute kidney injury. Off of propofol and maintained on Precedex. Patient has been following commands. Daughter did have to put there on regular Patient remains on the vent. urine output at 50-100 mL per hour. Edema has improved. Scheduled for hemodialysis today. Patient's temporary femoral catheter had very poor flows today. Vascular surgery has been contacted. Objective - Vital Signs Vital signs: Vital Signs Temp 98.2 F 12/06/23 14:00 Pulse 73 12/06/23 14:00 Resp 24 12/06/23 14:00 BP 132/85 12/06/23 08:00 Pulse Ox 97 12/06/23 14:00 FiO2 35 12/06/23 12:00 Intake & Output 12/05/23 12/06/23 12/06/23 18:59 06:59 18:59 Intake Total 5470.078 1060.963 713.000 Output Total 1280 1635 920 Balance 6.855 -240.037 -207.000 Weight 110.5 kg 110.5 kg Intake: IV 456 1056 553 0.9 KVO 120 120 60 Normal Saline Pressure 36 36 18 Saline TPN 375 mvi tpn 300 900 75 Intake, IV Titration 775.855 188.963 100.000 Amount Dexmedetomidine/0.9% NaCl 100.000 188.963 100.000 (Pmx) 400 mcg In Empty Bag 1 bag @ 0.2 MCG/KG/HR 5.485 mls/hr IV .[id number] [facility] Rx#:[id number] Norepinephrine 8 mg In 0 Sodium Chloride 0.9% 250 ml @ 0.03 MCG/KG/MIN 6. 368 mls/hr IV .Q24H [facility] Rx#:[id number] Sodium Acetate 60 meq 600 Sodium Chloride 4Meq/ml Vial 44 meq Potassium Chloride 14 meq Calcium Gluconate 2 gm Magnesium Sulfate gm 0.25 gm In Amino Acids 5 %/Dextrose 20 % 1,000 ml @ 75 mls/hr IV .BY DURATION NIRMAL Rx#: [id number] propofoL 1,000 mg In 75.855 Empty Bag 1 bag @ 20 MCG/ KG/MIN 9.36 mls/hr IV . [id number] [facility] Rx#:[id number] Tube Feeding 25 60 30 Other 30 90 30 Output: Drainage 160 140 60 Left Abdomen 50 Right Abdomen 110 140 60 Urine 1120 1495 860 Other: Voiding Method Indwelling Catheter Indwelling Catheter Indwelling Catheter ABP, PAP, CO, CI - Last Documented Arterial Blood Pressure 206/79 - Exam patient is sedated and on the vent. Examination of the heart S1 and S2 Examination of the lungs bilateral breath sounds are heard Abdomen is soft dressed, RAYA drain noted Examination of lower extremities shows edema 1+ with significant scrotal edema, improving - Labs CBC & Chem 7: 12/06/23 04:20 12/06/23 04:20 Labs: Abnormal Lab Results - Last 24 Hours (Table) 12/04/23 12/05/23 12/05/23 Range/Units 17:56 18:42 23:32 WBC (3.8-10.6) k/uL RBC (4.30-5.90) m/uL Hgb (13.0-17.5) gm/dL Hct (39.0-53.0) % RDW (11.5-15.5) % Plt Count (150-450) k/uL Neutrophils # (1.3-7.7) k/uL Lymphocytes # (1.0-4.8) k/uL ABG pH (7.35-7.45) ABG HCO3 (21-25) mmol/L ABG Total CO2 (19-24) mmol/L ABG O2 Saturation (94-97) % Hemoglobin (13.0-17.5) gm/dL Sodium (137-145) mmol/L BUN (9-20) mg/dL Creatinine (0.66-1.25) mg/dL Glucose (74-99) mg/dL POC Glucose (mg/dL) 164 H 191 H 225 H (70-110) mg/dL Calcium (8.4-10.2) mg/dL Phosphorus (2.5-4.5) mg/dL 12/06/23 12/06/23 12/06/23 Range/Units 04:20 04:20 05:10 WBC 11.8 H (3.8-10.6) k/uL RBC 2.95 L (4.30-5.90) m/uL Hgb 7.9 L (13.0-17.5) gm/dL Hct 25.4 L (39.0-53.0) % RDW 20.0 H (11.5-15.5) % Plt Count 107 L (150-450) k/uL Neutrophils # 10.5 H (1.3-7.7) k/uL Lymphocytes # 0.8 L (1.0-4.8) k/uL ABG pH 7.47 H (7.35-7.45) ABG HCO3 26 H (21-25) mmol/L ABG Total CO2 27 H (19-24) mmol/L ABG O2 Saturation 98.7 H (94-97) % Hemoglobin 8.3 L (13.0-17.5) gm/dL Sodium 130 L (137-145) mmol/L BUN 92 H (9-20) mg/dL Creatinine 3.74 H (0.66-1.25) mg/dL Glucose 260 H (74-99) mg/dL POC Glucose (mg/dL) (70-110) mg/dL Calcium 7.3 L (8.4-10.2) mg/dL Phosphorus 4.6 H (2.5-4.5) mg/dL 12/06/23 12/06/23 Range/Units 06:13 14:00 WBC (3.8-10.6) k/uL RBC (4.30-5.90) m/uL Hgb (13.0-17.5) gm/dL Hct (39.0-53.0) % RDW (11.5-15.5) % Plt Count (150-450) k/uL Neutrophils # (1.3-7.7) k/uL Lymphocytes # (1.0-4.8) k/uL ABG pH (7.35-7.45) ABG HCO3 (21-25) mmol/L ABG Total CO2 (19-24) mmol/L ABG O2 Saturation (94-97) % Hemoglobin (13.0-17.5) gm/dL Sodium (137-145) mmol/L BUN (9-20) mg/dL Creatinine (0.66-1.25) mg/dL Glucose (74-99) mg/dL POC Glucose (mg/dL) 226 H 159 H (70-110) mg/dL Calcium (8.4-10.2) mg/dL Phosphorus (2.5-4.5) mg/dL Assessment and Plan Assessment: 1. Acute kidney injury secondary to ATN secondary to septic shock. Creatinine 0.86 on admission and up to 5.38 dated November 29, 2023. nonoliguric. UA fairly benign. No hydronephrosis noted on imaging. Started hemodialysis on 11/29/2023 for worsening volume status and acute kidney injury. 2. Perforated small bowel status post exploratory laparotomy with abdominal washout, small bowel resection and J-tube replacement November 25, 2023. 3. A-fib with RVR. s/p amiodarone drip. Also received digoxin this admission. 4. Recently diagnosed gastric B-cell lymphoma. 5. Septic shock. Likely abdominal source. On IV antibiotics. Off vasopressors now. 6. Hypocalcemia secondary to acute kidney injury. Replaced. Improved. 7. Metabolic acidosis secondary to acute kidney injury. Improved. 8. Volume overload Plan: dialysis today. Vascular surgery has been contacted regarding for nonfunctional dialysis catheter. Continue with IV Lasix Continue TPN Repeat labs in a.m.
--- NOTE | 2023-12-06 16:47 | P.PN ---
Progress Note - Text Progress Note Date: 12/06/23 Chief Complaint: Aspirated This is a 73-year-old patient, follows with Dr. Patricia Deal. Patient was seen this morning in the ICU. Patient's and daughter at the bedside. History obtained predominantly by the . Patient been having trouble with his stomach symptoms for close to 8 months. Patient underwent EGD by Dr. Sahara Cheng yesterday. Patient was found to have ulcerated around the antrum and obstruction to the pylorus. A lot of retained food was found. Patient aspirated. Had to be intubated and brought to the ICU. On a Levophed drip. FiO2 50 and a PEEP of 6. Patient had been losing weight lost about 25 pounds. Previously has a history of mitral valve prolapse. November 13: ICU. Patient remains on Precedex drip and propofol drip. Did not do well attempted extubation yesterday. Patient been off Levophed. NG tube to suction. Spoke to patient's and son at the bedside. Biopsy results awaited. Hemoglobin dropped to 6.9 this morning. Get a unit of blood. November 14: ICU. Up in a chair. Extubated yesterday. NG tube to suction. at the bedside. 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 Oncology was consulted. They have ordered a port. Results discussed with Dr. Sahara Cheng. General surgery was consulted for J-tube placement. Discussed with at the bedside. Patient getting IV fluids, IV Zosyn,. Patient has been on IV amiodarone for A-fib-back in sinus rhythm. Multiple PACs. Did receive unit of blood yesterday. Also IV ferric gluconate. November 15: ICU. Patient earlier today underwent jejunostomy tube placement and a port placement. Patient awake. Answering questions. NG tube to suction present. Updated patient's . Patient remains on IV amiodarone and IV Zosyn. November 16: ICU. Up in the chair. NG tube present but not to suction. Trickle feeding through the jejunostomy tube should be started today. Dietitian has been on board. IV Zosyn to continue. Patient's and his sister at the bedside. Discussed. Also spoke with Dr. Serna. Given patient has no other predisposing cardiac factors for the A-fib except acute illness. His LV function is normal. Left atrium is normal. He has already been loaded with IV amiodarone. Will switch him to oral Lopressor 12.5 twice daily. Hence will DC amiodarone. Patient yesterday had wheezing was put on bronchodilators steroids per pulmonary. November 17: Propped up in bed. NG tube was discontinued. Sinus rhythm. Remains NPO. Getting G-tube feeding at 40 cc an hour. Dietitian following. Get arrangements done for DC home tomorrow including tube feeding. Increase activity discussed with patient and elder daughter at the bedside. Still requiring oxygen. Incentive spirometry. November 18: Patient up in recliner. Earlier today spoke to social media editor David. Informed patient is rather weak and will be going to the [facility]. Looking at authorization. Denae came to the room and spoke to patient his and his daughter. They are very keen to take the patient home as 3 daughters all nurses and they will take care of him at home. Patient earlier today to abdominal cramping and some loose stools.'s tube feeding was held. Told the nurse to start back at the rate of 40 cc an hour. He was before the getting it at 55 cc an hour. Incentive spirometry was again emphasized. Patient remains on 4 L of oxygen. November 19: I saw the patient this morning. Hence I am in the evening. Morning was sitting with his sons. Has some edema. Lungs had crackles I gave him 40 mg of Lasix. He did make good urine. Tube feeding was held from the previous evening of because of abdominal cramping. Acute abdominal series showed nonspecific bowel gas pattern and SBO to be ruled out. Family and patient was updated. Told him discharge will depend on day by day. Later this afternoon CT scanAnd abdomen pelvis done. Showed small bowel to be 3 point centimeter dilated. Some anasarca. Gastric findings. Gallstones. Later spoke to Dr. Irby from general surgery. They will further review and decide about further plan of action. Will give further dose of IV Lasix because of fluid overload from likely hypoalbuminemia and IV fluids previously received. Patient may take his pills by mouth. Total time spent today about 1 hour with over 40 minutes of discussion. Patient did state his breathing is better after Lasix this morning. November 20: Saw the patient this morning. was present. Patient received 2 more doses of Lasix. Diuresed well. Breathing much better. Lungs are sounding better. Discussed with Dr. Zepeda other surgeon. He is taking 3 cc out of the balloon and the gastrostomy tube. Started trickle feeding at 5 cc an hour. Will see how this does. Later in the day ran into the and the daughter again. Did update them on the same. Dilaudid was discontinued yesterday but morphine was ordered by surgery for patient having pain. Concerns about GI issues with that we will DC the morphine. As family does not want the same. November 21: Patient reclining bed. Tired. Several family members at the bedside. Including his and eldest daughter. Patient started on trickle feed yesterday at 5 cc an hour. This morning he has been on 10 cc an hour. Still having some loose stools. C. difficile was ordered. Patient on 2 L of nasal cannula. Has diuresed well. Will give an additional dose of Lasix today. If C. difficile is negative and the diarrhea is from the tube feedings we may have to use a fecal management system to keep him comfortable. Otherwise patient remains NPO. Dietitian is following the patient. Care was discussed length with patient the and daughter at the bedside. Questions answered. Liquid Tylenol has been added for abdominal pain. Avoid narcotics. Elevated white count likely from Solu-Medrol 11/23/2023--patient was feeling better today. Multiple family member at bedside. No issues overnight. Normal saline at 10 cc an hour, tube feeding at 20 cc an hour, remains on Zosyn, on 3 L oxygen. Afebrile. Heart rate 62, respiratory rate 16, blood pressure 114/67, saturating 91% on 3 L. WBCs 14.5, 9.7 hemoglobin. Platelet 242. BMP is unremarkable. Pulmonary and general surgery following. General surgery recommended to continue tube feeds at 20 cc/h. 11/24/2023--patient reported significant abdominal discomfort, also noted to have leak around G-tube. General surgery is following, evaluated the patient at bedside, adjusted tube feeds. Also reported having diarrhea, on 2 L oxygen, went up to 5 L. Blood pressure was low, 500 mL fluid bolus with close monitoring of respiratory status ordered. Currently on DuoNebs, Solu-Medrol, will continue Zosyn. Chest x-ray showed a left lower lobe infiltrate. Abdominal x-ray showed multiple air-fluid levels. CT abdomen showed multiple dilated small bowel loops, consistent with obstruction, pneumoperitoneum, cholelithiasis and ascites. WBCs 14.1, platelet 255, hemoglobin 8.9. NG tube in place. Family at bedside. patient transferred to SICU for close monitoring. 11/25/23--patient is currently in the ICU, required Levophed overnight due to low blood pressure, low urine output with creatinine trending up. Nephrology following. Meter Attendant also following. Patient remains n.p.o., NG tube in place, following NG tube insertion patient had total of 2 L output, J-tube was draining approximately 200 cc over last 8 hours, continues to have abdominal pain and abdominal tenderness. Patient on IV fluids. Currently on 4 L oxygen. WBCs 8.2, hemoglobin 12.3, platelet 188. Chest x-ray earlier today showed right sided port and a stable left lung airspace disease, NG tube in place. Patient currently on Zosyn, on IV Dilaudid for pain control, on IV Solu-Medrol. General surgery planning for OR today, started on TPN. 11/26/23--patient was seen and examined today. Patient is currently sedated, intubated on mechanical ventilation. Family at bedside. Patient underwent ex lap, abdominal washout, small bowel resection with new feeding jejunostomy tube placement yesterday, small bowel was noted to be perforated with significant contamination of abdominal cavity. Patient is currently on vancomycin and Zosyn. Creatinine went up to 2.85, nephrology following, recommended to continue IV fluids, avoid nephrotoxin Preserved EF on echocardiogram.. Patient currently on Levophed, vasopressin in the ICU for close monitoring. Patient is afebrile, heart rate 122, blood pressure 129/76, currently on mechanical ventilation, sedated. November 26: ICU. Intubated. FiO2 60 and a PEEP of 5. Drips include IV amiodarone. Heart rate was up early did get fired microgram of IV digoxin and 2.5 mg of IV Lopressor. Did drop her blood pressure bit. Urine output was low. Received 80 mg of IV Lasix. Ahmet to 150 cc. Other drips include IV propofol, vasopressin, Levophed. TPN was started yesterday. Antibiotics include IV Zosyn and vancomycin. Patient has a J-tube to drainage to gravity. Spoke to patient's younger daughter and at the bedside. Prognosis guarded. Continue current treatment plan. Chest x-ray shows right lower lobe consolidation. Small pleural effusion. November 27: ICU. Intubated. FiO2 55 and a PEEP of 5. Antibiotics include IV vancomycin. Drips include Levophed at a small dose, IV vasopressin, propofol, amiodarone. Patient converted to sinus rhythm this morning. Getting TPN and normal saline at 75 cc an hour. Urine output about 25 cc an hour. RAYA drain put out about 260 cc last 12 hours that is last steward/stewardess night. NG tube with bilious output. And also GI J-tube output to gravity. Spoke to patient's and daughter at the bedside. They understand patient still not out of the kee. Platelets have dropped-therefore probably Zosyn stopped. November 28: ICU. Intubated. FiO2 55 and a PEEP of 5. Patient is in sinus rhythm. Seen this morning. Due for dialysis catheter this afternoon. Urine output about 15 to 20 cc an hour. Patient is on IV Lasix 80 mg every 12. Saline is KVO. Drips include IV propofol vasopressin. Patient having significant output through the RAYA drain and the jejunostomy tube to drainage. Creatinine had been getting worse. Patient's at the bedside. Understands patient's remains critically ill. Hemoglobin is down to 7. Given that patient's pain hypotensive, and on vasopressin we will give a unit of blood with dialysis. Getting TPN antibiotic changed to IV meropenem November 29: ICU. Intubated. FiO2 55 and a PEEP of 5. Remains in sinus rhythm. Getting TPN. Dialyzed yesterday and this morning. About 1000 cc removed. Urine output about 50 cc an hour. Patient is on IV propofol. Off vasopressin. Still having significant output through the RAYA drain and jejunostomy tube. Patient received a second unit of blood yesterday. Patient's and daughter at the bedside. I did discuss guarded prognosis. Did asked them to revisit CODE STATUS.. Getting IV meropenem. November 30: ICU. Intubated. Did get a sedation holiday t today. Back on propofol. Getting TPN. Still getting IV Lasix. Fair urine output. Jejunostomy tube in last 8 hours was about 30 cc output. RAYA drain in the 8 hours had about 180 cc output. Telemetry shows sinus rhythm. NG tube has low intermittent suction with negative output. On the vent with FiO2 40 and a PEEP of 5. No hemodialysis today. Discussed with the and eldest daughter at the bedside. IV meropenem-patient's sputum had grown Citrobacter freundii and Pseudomonas aeruginosa. December 01: ICU. Intubated. Jejunostomy tube to gravity. Only 10 cc output in last 24 hours. RAYA drain. About 190 cc last 6 hours. Nasogastric tube to low intermittent suction. Minimal output. Patient is on a small dose of propofol 5 mics. Telemetry shows sinus rhythm. Patient started on small dose of Cleviprex this morning. Blood pressure. Getting TPN. FiO2 35 and PEEP of 5. Discussed with the at the bedside. Hemodialysis today December 02: ICU. Patient remains intubated. FiO2 35 PEEP of 5. Patient is on IV propofol. IV Cleviprex was discontinued yesterday. Also remains on TPN. Telemetry shows sinus rhythm. NG tube is good no output. Still significant output through the RAYA drain. Jejunostomy tube has minimal output. Patient had hemodialysis today 2 L of fluid was removed. Oral half liters yesterday. Patient getting a sedation holiday. General Surgery started the patient on trickle feeding at 10 cc an hour. I did speak to patient's at the bedside. Prognosis remains guarded but there is some improvement. December 03: ICU. Intubated. FiO2 35 PEEP of 5. Drips include IV propofol and Precedex. Getting TPN. Telemetry shows sinus rhythm. Remains on IV Lasix 80 mg twice a day. IV meropenem. Because patient gets easily agitated when transitioning off propofol he has been switched over to Precedex. For hemodialysis today. December 04: ICU. Intubated. FiO2 35 and a PEEP of 5. Patient been taken off propofol is on Precedex. Telemetry sinus rhythm. J-tube with minimal output. RAYA drain with decreased output. NG tube to suction minimal output. Family wanted to hold off trickle feeding until cleared by oncology. Which he did today. Trickle feeding will be started today. Spoke to patient's and one of the daughters at the bedside. Dr. Russ is spoken to the earlier this point they want to do further tracheostomy tube. December 05: ICU. Intubated. FiO2 35 PEEP of 5. Patient remains on Precedex and PPN. Patient's dialysis catheter was not functioning is getting another [address] Bobby this afternoon. Remains on IV meropenem. Has a RAYA drain in the jejunostomy tube to gravity. NG tube to low intermittent suction. No family at the bedside. Active Medications Acetaminophen (Acetaminophen Tab 325 Mg Tab) 650 mg PO Q4HR PRN PRN Reason: Fever and/ or Pain Last Admin: 11/22/23 08:46 Dose: 650 mg Acetaminophen (Acetaminophen Oral Susp (Peds) 3,840 Mg/120 Ml Bottle) 480 mg PO Q4HR PRN PRN Reason: Fever Albuterol/Ipratropium (Ipratropium-Albuterol 3 Ml Neb) 3 ml INHALATION RT-QID NIRMAL Last Admin: 12/06/23 15:08 Dose: 3 ml Albuterol/Ipratropium (Ipratropium-Albuterol 3 Ml Neb) 3 ml INHALATION RT-Q2H PRN PRN Reason: Shortness Of Breath Or Wheezing Last Admin: 12/03/23 03:45 Dose: 3 ml Chlorhexidine Gluconate (Chlorhexidine Gluconate 15 Ml Cup) 15 ml MUCOUS MEM BID NIRMAL Last Admin: 12/06/23 08:12 Dose: 15 ml Dextrose/Water (Dextrose 50% Syringe 50 Ml) 25 ml IVP PER PROTOCOL PRN; P rotocol PRN Reason: Hypoglycemia Dextrose/Water (Dextrose 50% Syringe 50 Ml) 50 ml IVP PER PROTOCOL PRN; Protocol PRN Reason: Hypoglycemia Furosemide (Furosemide 10 Mg/Ml 10 Ml Vial) 80 mg IV Q12H NIRMAL Last Admin: 12/06/23 05:30 Dose: 80 mg Hydromorphone HCl (Hydromorphone 0.5 Mg/0.5 Ml Syringe) 0.5 mg IVP Q6HR PRN PRN Reason: Pain Last Admin: 12/06/23 11:10 Dose: 0.5 mg Propofol 1,000 mg/ IV Solution 100 mls @ 9.36 mls/hr IV .[id number] NIRMAL; Protocol Last Titration: 12/05/23 11:11 Dose: 0 mcg/kg/min, 0 mls/hr Sodium Chloride (Saline 0.9%) 1,000 mls @ 20 mls/hr IV .Q24H NIRMAL Last Admin: 12/05/23 13:41 Dose: Not Given Meropenem 1 gm/ Sodium (Chloride) 100 mls @ 33.333 mls/hr IVPB HS [facility] Last Admin: 12/05/23 20:36 Dose: 33.333 mls/hr Dexmedetomidine HCl 400 mcg/ (IV Solution) 100 mls @ 5.485 mls/hr IV .[id number] [facility]; Protocol Last Titration: 12/06/23 16:43 Dose: 0.5 mcg/kg/hr, 13.713 mls/hr Norepinephrine Bitartrate 8 mg (/ Sodium Chloride) 258 mls @ 6.368 mls/hr IV .Q24H [facility]; Protocol Last Admin: 12/06/23 15:44 Dose: Not Given Parenteral Vitamin Supplement 10 ml/ Zinc/Copper/Manganese/Selenium 1 ml/ Sodium Acetate 60 meq/ Sodium Chloride 52 meq / Potassium Chloride 14 meq/Calcium Gluconate 2.25 gm/Magnesium Sulfate 0.5 gm/Amino Acids/Dextrose 1,084.5 mls @ 75 mls/hr IV .BY DURATION [facility] Sodium Acetate 60 meq/ Sodium Chloride 52 meq/ Potassium Chloride 14 meq/ Calcium Gluconate 2.25 gm/ Magnesium Sulfate 0.25 gm/ Amino Acids/Dextrose 1,073 mls @ 75 mls/hr IV .BY DURATION [facility] Insulin Aspart (Insulin Aspart (Novolog) 100 Unit/Ml Vial) 0 unit SQ 0000,0600,1200,1800 [facility]; Protocol Last Admin: 12/06/23 12:15 Dose: Not Given Insulin Detemir (Insulin Detemir (Levemir) 100 Unit/Ml Syr) 24 unit SQ DAILY@0700 [facility] Last Admin: 12/06/23 06:52 Dose: 24 unit Methylprednisolone Sodium Succinate (Methylprednisolone Sod Succi 40 Mg/Ml 1 Ml Vial) 40 mg IV DAILY@1800 [facility] Last Admin: 12/05/23 18:24 Dose: 40 mg Metoprolol Tartrate (Metoprolol Tartrate 5 Mg/5 Ml Vial) 2.5 mg IVP Q6HR PRN PRN Reason: Heart Rate - HIGH Last Admin: 11/27/23 08:25 Dose: 2.5 mg Miscellaneous Information (Magnesium Replacement Protocol 1 Each Misc) 1 each MISCELLANE DAILY PRN; Protocol PRN Reason: Per Protocol Naloxone HCl (Naloxone 0.4 Mg/Ml 1 Ml Vial) 0.2 mg IV Q2M PRN PRN Reason: Opioid Reversal Pantoprazole Sodium (Pantoprazole 40 Mg/10 Ml Vial) 40 mg IVP BID NIRMAL Last Admin: 12/06/23 08:12 Dose: 40 mg Past medical history to include: GERD Social history: . No smoking. Physical examination: VITAL SIGNS: Afebrile, 70, 23, 166 x 71, GENERAL: Sedated, right chest wall port EYES: Pupils equal. Conjunctiva edouard l. HEENT: External appearance of nose and ears normal, oral cavity-endotracheal tube. NG tube-low intermittent suction NECK: JVD unable to assess; masses not palpable. HEART: First and second heart sounds are normal; edema, present LUNGS: Respiratory rate increased, decreased breath sounds ABDOMEN: Soft, nontender, liver spleen not palpable, no masses palpable..jejunostomy tube-attached to gravity. RAYA drain. Incision with stitches PSYCH: Sedated INVESTIGATIONS, reviewed in the clinical context: December 05: White count 1.8 hemoglobin 7.9 platelets 107 sodium 130 potassium 3.9 BUN 92 creatinine 3.74 Small bowel resection [December 01]: Ischemic active enteritis with focal necrosis and perforation. Serosal fibrous adhesions. Viable margins. December 04: White count 10.2 hemoglobin 8 platelets 90 sodium 130 potassium 4 BUN 70 creatinine 2.89 Sputum culture: [November 25]: Citrobacter freundii. Pseudomonas aeruginosa November 20: White count 14.4 hemoglobin 8.8 platelets 229 potassium 4.1 BUN [address] scan abdomen [November 19] possible small bowel obstruction Stool: C. difficile negative November 16: White count 9.1 hemoglobin 7.9 platelets 259 potassium 4.3 creatinine 0.92 November 15: WBC 13 hemoglobin 7.7 platelets 248 potassium 4.3 creatinine 0.87 2D echo: EF 55 to 60%. November 14: White count 10.7 hemoglobin 7.5 platelets 239 potassium 4.2 creatinine 0.96 Kidneys bladder: Unremarkable November 13: White count 12 hemoglobin 6.9 platelets 276 potassium 4.4 creatinine 1.21 magnesium 1.8 iron 6 TIBC 365% saturation 1.64 transferrin 261 ferritin 34.6 B12 569 folate 4.4 November 11: Creatinine 0.86 EGD: Large amount of retained solid liquid food noted in the stomach. Large superficial gastric antral ulceration involving most of the antrum extending into the pylorus causing pyloric stenosis. Biopsies were obtained. Chest x-ray film personally reviewed by me-scattered infiltrates Assessment plan: -Aspiration pneumonitis bilateral from retained gastric contents mostly food and liquids, causing acute hypoxic respiratory failure: Subsequent sputum culture November 25: Citrobacter freundii, Pseudomonas aeruginosa IV meropenem Pulmonary following -Acute pulmonary edema and fluid overload from hypoalbuminemic state and fluids from IV.:: Has been getting Lasix and dialysis -Small l bowel perforation at site of jejunostomy tube tip with balloon..: Portion of small bowel resected. On November 24. New J-tube was placed.- drainage to gravity:-Minimal output Trickle feeding was restarted but family wanted to hold off.-This will be started today -Acute kidney injury. Possible ATN from hypotensive shock: Slow to respond Renal ultrasound unremarkable. Started on renal replacement therapy on November 28. Followed by nephrology -Nutrition Jejunostomy tube placed November [address] Ewing Getting TPN. Trickle feeds was to be started 2 days ago will be started today because of family request as it want to get an okay from oncology -Acute recurrent atrial fibrillation-converted to sinus rhythm Received IV amiodarone. Cardiology following Lopressor -Acute hypoxic respiratory failure from aspiration pneumonia, status post ventilator assisted: Reintubated November 25. FiO2 50 PEEP of 5 Getting sedation holiday -Septic shock, recovered -Hypertension Patient started on Cleviprex-discontinued -Normocytic anemia likely to secondary underlying lymphoma. Also anemia of blood draw. Iron deficiency anemia Received 2 unit of blood. IV iron. -Severe thrombocytopenia. Would consider coagulation disorder secondary to infection., In the setting of underlying lymphoma.: Slow to respond Hematology following. -Acute blood loss anemia, Received 2 units of blood -GERD PPI -Acute diarrhea secondary to tube feeding.: Resolved C. difficile ruled out. -Large superficial gastric antral ulceration involving the gastric antrum extending into the pylorus with gastric outlet obstruction. 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 Port placed. For outpatient PET scan. -Full code Temporary dialysis catheter had a poor blood flow. [place] callaway was consulted for replace the same. Patient due for hemodialysis today. Prognosis remains guarded. Past Medical History Past Medical History: GERD/Reflux History of Any Multi-Drug Resistant Organisms: None Reported Past Surgical History: Heart Catheterization Additional Past Surgical History / Comment(s): colonsocopy,spinal injection, Past Anesthesia/Blood Transfusion Reactions: No Reported Reaction Past Psychological History: No Psychological Hx Reported Smoking Status: Never smoker Past Alcohol Use History: None Reported Past Drug Use History: None Reported
[2023-12-06 18:01] LABS: Glucose,Whole Blood 111 mg/dL (70-110)
--- NOTE | 2023-12-06 19:16 | P.PN ---
Subjective Patient seen and evaluated at bedside. Patient doing well, no acute events overnight. Objective - Vital Signs Vital signs: Vital Signs Temp 98.3 F 12/06/23 16:00 Pulse 76 12/06/23 18:00 Resp 20 12/06/23 18:00 BP 100/62 12/06/23 17:00 Pulse Ox 95 12/06/23 18:00 FiO2 35 12/06/23 16:00 Intake & Output 12/05/23 12/06/23 12/06/23 18:59 06:59 18:59 Intake Total 7217.354 5847.963 1258.489 Output Total 1280 1635 1535 Balance 6.855 -240.037 -276.511 Weight 110.5 kg 110.5 kg Intake: IV 456 1056 993 0.9 KVO 120 120 110 Normal Saline Pressure 36 36 33 Saline TPN 750 mvi tpn 300 900 75 Intake, IV Titration 775.855 188.963 155.489 Amount Dexmedetomidine/0.9% NaCl 100.000 188.963 155.489 (Pmx) 400 mcg In Empty Bag 1 bag @ 0.2 MCG/KG/HR 5.485 mls/hr IV .[id number] [facility] Rx#:[id number] Norepinephrine 8 mg In 0 Sodium Chloride 0.9% 250 ml @ 0.03 MCG/KG/MIN 6. 368 mls/hr IV .Q24H [facility] Rx#:[id number] Sodium Acetate 60 meq 600 Sodium Chloride 4Meq/ml Vial 44 meq Potassium Chloride 14 meq Calcium Gluconate 2 gm Magnesium Sulfate gm 0.25 gm In Amino Acids 5 %/Dextrose 20 % 1,000 ml @ 75 mls/hr IV .BY DURATION [facility] Rx#: [id number] propofoL 1,000 mg In 75.855 Empty Bag 1 bag @ 20 MCG/ KG/MIN 9.36 mls/hr IV . [id number] [facility] Rx#:[id number] Tube Feeding 25 60 80 Other 30 90 30 Output: Drainage 160 140 260 Left Abdomen 50 Right Abdomen 110 140 260 Urine 1120 1495 1275 Other: Voiding Method Indwelling Catheter Indwelling Catheter Indwelling Catheter # Bowel Movements 1 ABP, PAP, CO, CI - Last Documented Arterial Blood Pressure 126/68 - Exam gen: nad cv: rrr pul: non labored breathing abd: soft, non tender to palpation, surgical incisions clean but draining, cate drain in place - Labs CBC & Chem 7: 12/06/23 04:20 12/06/23 04:20 Labs: Abnormal Lab Results - Last 24 Hours (Table) 12/04/23 12/05/23 12/06/23 Range/Units 17:56 23:32 04:20 WBC (3.8-10.6) k/uL RBC (4.30-5.90) m/uL Hgb (13.0-17.5) gm/dL Hct (39.0-53.0) % RDW (11.5-15.5) % Plt Count (150-450) k/uL Neutrophils # (1.3-7.7) k/uL Lymphocytes # (1.0-4.8) k/uL ABG pH (7.35-7.45) ABG HCO3 (21-25) mmol/L ABG Total CO2 (19-24) mmol/L ABG O2 Saturation (94-97) % Hemoglobin (13.0-17.5) gm/dL Sodium 130 L (137-145) mmol/L BUN 92 H (9-20) mg/dL Creatinine 3.74 H (0.66-1.25) mg/dL Glucose 260 H (74-99) mg/dL POC Glucose (mg/dL) 164 H 225 H (70-110) mg/dL Calcium 7.3 L (8.4-10.2) mg/dL Phosphorus 4.6 H (2.5-4.5) mg/dL 12/06/23 12/06/23 12/06/23 Range/Units 04:20 05:10 06:13 WBC 11.8 H (3.8-10.6) k/uL RBC 2.95 L (4.30-5.90) m/uL Hgb 7.9 L (13.0-17.5) gm/dL Hct 25.4 L (39.0-53.0) % RDW 20.0 H (11.5-15.5) % Plt Count 107 L (150-450) k/uL Neutrophils # 10.5 H (1.3-7.7) k/uL Lymphocytes # 0.8 L (1.0-4.8) k/uL ABG pH 7.47 H (7.35-7.45) ABG HCO3 26 H (21-25) mmol/L ABG Total CO2 27 H (19-24) mmol/L ABG O2 Saturation 98.7 H (94-97) % Hemoglobin 8.3 L (13.0-17.5) gm/dL Sodium (137-145) mmol/L BUN (9-20) mg/dL Creatinine (0.66-1.25) mg/dL Glucose (74-99) mg/dL POC Glucose (mg/dL) 226 H (70-110) mg/dL Calcium (8.4-10.2) mg/dL Phosphorus (2.5-4.5) mg/dL 12/06/23 12/06/23 Range/Units 14:00 18:00 WBC (3.8-10.6) k/uL RBC (4.30-5.90) m/uL Hgb (13.0-17.5) gm/dL Hct (39.0-53.0) % RDW (11.5-15.5) % Plt Count (150-450) k/uL Neutrophils # (1.3-7.7) k/uL Lymphocytes # (1.0-4.8) k/uL ABG pH (7.35-7.45) ABG HCO3 (21-25) mmol/L ABG Total CO2 (19-24) mmol/L ABG O2 Saturation (94-97) % Hemoglobin (13.0-17.5) gm/dL Sodium (137-145) mmol/L BUN (9-20) mg/dL Creatinine (0.66-1.25) mg/dL Glucose (74-99) mg/dL POC Glucose (mg/dL) 159 H 111 H (70-110) mg/dL Calcium (8.4-10.2) mg/dL Phosphorus (2.5-4.5) mg/dL Assessment and Plan Assessment: 73 yo male s/p j tube insertion -advance tube feeds to 10cc/hr -please hold tube feeds for extubation Time with Patient: Less than 30
--- NOTE | 2023-12-06 22:19 | OP ---
OPERATIVE REPORT DATE OF SERVICE : PREOPERATIVE DIAGNOSIS: Acute chronic renal failure, occluded right femoral dialysis catheter. POSTOPERATIVE DIAGNOSIS: Acute chronic renal failure, occluded right femoral dialysis catheter. PROCEDURES PERFORMED: 1. Placement of a 44 cm dialysis catheter, left femoral approach. 2. Inferior vena cavogram and placement of a 44 cm dialysis catheter, left femoral approach. 3. Removal of temporary catheter, right femoral approach. DESCRIPTION OF PROCEDURE: The patient was brought to the color laboratory technician. Left groin was prepped and drapes applied in the usual sterile manner. 1% lidocaine was infiltrated. Ultrasound-guided micropuncture introduced into the left femoral vein. Micropuncture guidewire was passed and 4-Belgian dilator was advanced on top of the guidewire with superior vena cavogram was performed, which was found to be patent. Then, we created a tunnel. Through the tunnel, we brought 44 cm dialysis catheter. The dilator was advanced on the top of the guidewire. Then, we placed a sheath on the top of the guidewire. Through the sheath, we introduced 44 cm dialysis catheter. Tip of the catheter in superior vena cava flushed with heparin saline and hep-locked, secured with 3-0 nylon. The patient tolerated the procedure well. Then, we removed the right femoral dialysis catheter. Pressures were held. The patient was transferred to the Intensive Care Unit in satisfactory condition. MMODL / IJN: [id number] /
[2023-12-06 23:56] LABS: Glucose,Whole Blood 233 mg/dL (70-110)
[2023-12-07 00:14] LABS: Glucose,Whole Blood 277 mg/dL (70-110)
[2023-12-07 05:03] LABS: ABG Base Excess 2.9 mmol/L; ABG HCO3 26 mmol/L (21-25); ABG Oxygen Saturation 97.3 % (94-97); ABG PCO2 33 mmHg (35-45); ABG PO2 83 mmHg (83-108); ABG TCO2 27 mmol/L (19-24)
[2023-12-07 05:23] LABS: African American GFR (CKD) 23 (>60 ml/min/1.73 sqM); Anion Gap 5 mmol/L; Blood Urea Nitrogen 75 mg/dL (9-20); Calcium 7.1 mg/dL (8.4-10.2); Carbon Dioxide 25 mmol/L (22-30); Chloride 103 mmol/L (98-107); Glucose 272 mg/dL (74-99); Non-African American GFR(CKD) 20 (>60 ml/min/1.73 sqM); Sodium 133 mmol/L (137-145)
[2023-12-07 06:05] LABS: Glucose,Whole Blood 308 mg/dL (70-110)
[2023-12-07 06:44] LABS: Anisocytosis Moderate; Basophils % (A) 0 %; Eosinophils % (A) 0 %; HCT 26.4 % (39.0-53.0); HGB 8.4 gm/dL (13.0-17.5); Hypochromasia Slight; Lymphocytes # (A) 0.9 k/uL (1.0-4.8); Lymphocytes % (A) 5 %; MCH 27.3 pg (25.0-35.0); MCHC 31.8 g/dL (31.0-37.0); MCV 85.7 fL (80.0-100.0); Monocytes # (A) 0.6 k/uL (0-1.0); Monocytes % (A) 3 %; Neutrophils % (A) 91 %; Platelet Count 108 k/uL (150-450); RBC 3.08 m/uL (4.30-5.90); RDW 20.1 % (11.5-15.5); WBC 18.7 k/uL (3.8-10.6)
--- NOTE | 2023-12-07 07:47 | XR ---
EXAMINATION TYPE: XR chest 1V portable DATE OF EXAM: 12/07/2023 COMPARISON: 12/06/2023 INDICATION: Difficulty breathing TECHNIQUE: Single frontal view of the chest is obtained. FINDINGS: The heart size is normal. The pulmonary vasculature is normal. There is a small infiltrate at the left base. There is silhouetting the left diaphragm. More moderate changes of the right lower lung field. Endotracheal tube tip is above the josseline. Nasogastric tube transverses the thorax. Right central kit ous catheter tip is within the right atrium. Left central venous catheter tip is within the superior vena cava region. IMPRESSION: 1. Small left and moderate right basilar infiltrate. Correlate for pneumonia. 2. Lines and catheters discussed above. [facility], Workstation: [email or web address], 12/07/2023 7:45 AM
--- NOTE | 2023-12-07 10:22 | P.PN ---
Progress Note - Text Progress Note Date: 12/07/23 RAGHAV. Patient remains intubated. 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 Status post J-tube placement and revision for SBO -Ok for trickle tube feeds -Continue TPN -NGT-LIS -ICU care Dick Ewing DO [facility] [phone]
--- NOTE | 2023-12-07 10:44 | CT ---
EXAMINATION TYPE: CT brain wo con DATE OF EXAM: 12/07/2023 COMPARISON: None INDICATION: AMS DLP: 1213.2 mGycm, Automated exposure control for dose reduction was used. CONTRAST: None CT of the brain is performed utilizing 3 mm thick sections through the posterior fossa and 3 mm thick sections through the remaining calvarium. Study is performed within 24 hours of arrival to the hosp ital. No abnormal hyperdensity is present to suggest an acute intracranial hemorrhage. No mass lesion is evident. No acute infarcts are evident. Ventricles and sulci are prominent for the patient age. Paranasal sinuses and mastoid air cells within the [id number] are clear. Patient is intubated and has a nasogastric tube. IMPRESSION: 1. No acute intracranial process. Follow up MRI can be performed as clinically indicated. 2. [facility], Workstation: [email or web address], 12/07/2023 10:41 AM
--- NOTE | 2023-12-07 11:20 | P.PN ---
Subjective Patient is seen for follow-up for acute kidney injury. Off of propofol and maintained on Precedex. Urine output at 50-100 mL per hour. Edema has improved. Scheduled for hemodialysis today. S/p new dialysis catheter placement in the left femoral vein. Objective - Vital Signs Vital signs: Vital Signs Temp 99.7 F H 12/07/23 08:00 Pulse 75 12/07/23 11:00 Resp 26 H 12/07/23 11:00 BP 116/75 12/07/23 11:00 Pulse Ox 99 12/07/23 11:00 FiO2 35 12/07/23 08:00 Intake & Output 12/06/23 12/07/23 12/07/23 18:59 06:59 18:59 Intake Total 9280.902 8697.475 500.377 Output Total 1535 5060 395 Balance -276.511 -3064.525 105.377 Weight 110.5 kg 70.3 kg Intake: IV 993 1056 400 0.9 KVO 110 120 10 Normal Saline Pressure 33 36 15 Saline TPN 750 900 375 mvi tpn 75 Intake, IV Titration 155.489 319.475 20.377 Amount Dexmedetomidine/0.9% NaCl 155.489 191.316 (Pmx) 400 mcg In Empty Bag 1 bag @ 0.2 MCG/KG/HR 5.485 mls/hr IV .[id number] [facility] Rx#:[id number] Meropenem 1 gm In Sodium 100 Chloride 0.9% 100 ml @ 33 .333 mls/hr IVPB HS [facility] Rx#:[id number] Norepinephrine 8 mg In 0 28.159 20.377 Sodium Chloride 0.9% 250 ml @ 0.03 MCG/KG/MIN 6. 368 mls/hr IV .Q24H [facility] Rx#:[id number] Tube Feeding 80 120 50 Hemodialysis 500 Other 30 30 Output: Drainage 260 120 Right Abdomen 260 120 Urine 1275 440 395 Hemodialysis 2500 Hemodialysis Net Amount 1999 Other: Voiding Method Indwelling Catheter Indwelling Catheter # Bowel Movements 1 ABP, PAP, CO, CI - Last Documented Arterial Blood Pressure 128/54 - Exam patient is on the vent. Examination of the heart S1 and S2 Examination of the lungs bilateral breath sounds are heard Abdomen is soft dressed, RAYA drain noted Examination of lower extremities shows edema 1+ with significant scrotal edema, improving - Labs CBC & Chem 7: 12/07/23 06:05 12/07/23 04:30 Labs: Abnormal Lab Results - Last 24 Hours (Table) 12/06/23 12/06/23 12/06/23 Range/Units 14:00 18:00 23:54 WBC (3.8-10.6) k/uL RBC (4.30-5.90) m/uL Hgb (13.0-17.5) gm/dL Hct (39.0-53.0) % RDW (11.5-15.5) % Plt Count (150-450) k/uL Neutrophils # (1.3-7.7) k/uL Lymphocytes # (1.0-4.8) k/uL ABG pH (7.35-7.45) ABG pCO2 (35-45) mmHg ABG HCO3 (21-25) mmol/L ABG Total CO2 (19-24) mmol/L ABG O2 Saturation (94-97) % Hemoglobin (13.0-17.5) gm/dL Sodium (137-145) mmol/L BUN (9-20) mg/dL Creatinine (0.66-1.25) mg/dL Glucose (74-99) mg/dL POC Glucose (mg/dL) 159 H 111 H 233 H (70-110) mg/dL Calcium (8.4-10.2) mg/dL 12/07/23 12/07/23 12/07/23 Range/Units 00:10 00:13 04:30 WBC (3.8-10.6) k/uL RBC (4.30-5.90) m/uL Hgb (13.0-17.5) gm/dL Hct (39.0-53.0) % RDW (11.5-15.5) % Plt Count (150-450) k/uL Neutrophils # (1.3-7.7) k/uL Lymphocytes # (1.0-4.8) k/uL ABG pH 7.50 H (7.35-7.45) ABG pCO2 33 L (35-45) mmHg ABG HCO3 26 H (21-25) mmol/L ABG Total CO2 27 H (19-24) mmol/L ABG O2 Saturation 97.3 H (94-97) % Hemoglobin 8.8 L (13.0-17.5) gm/dL Sodium 133 L (137-145) mmol/L BUN 75 H (9-20) mg/dL Creatinine 2.95 H (0.66-1.25) mg/dL Glucose 272 H (74-99) mg/dL POC Glucose (mg/dL) 277 H (70-110) mg/dL Calcium 7.1 L (8.4-10.2) mg/dL 12/07/23 12/07/23 Range/Units 06:04 06:05 WBC 18.7 H (3.8-10.6) k/uL RBC 3.08 L (4.30-5.90) m/uL Hgb 8.4 L (13.0-17.5) gm/dL Hct 26.4 L (39.0-53.0) % RDW 20.1 H (11.5-15.5) % Plt Count 108 L (150-450) k/uL Neutrophils # 17.0 H (1.3-7.7) k/uL Lymphocytes # 0.9 L (1.0-4.8) k/uL ABG pH (7.35-7.45) ABG pCO2 (35-45) mmHg ABG HCO3 (21-25) mmol/L ABG Total CO2 (19-24) mmol/L ABG O2 Saturation (94-97) % Hemoglobin (13.0-17.5) gm/dL Sodium (137-145) mmol/L BUN (9-20) mg/dL Creatinine (0.66-1.25) mg/dL Glucose (74-99) mg/dL POC Glucose (mg/dL) 308 H (70-110) mg/dL Calcium (8.4-10.2) mg/dL Assessment and Plan Assessment: 1. Acute kidney injury secondary to ATN secondary to septic shock. Creatinine 0.86 on admission and up to 5.38 dated November 29, 2023. nonoliguric. UA fairly benign. No hydronephrosis noted on imaging. Started hemodialysis on 11/29/2023 for worsening volume status and acute kidney injury. 2. Perforated small bowel status post exploratory laparotomy with abdominal washout, small bowel resection and J-tube replacement November 25, 2023. 3. A-fib with RVR. s/p amiodarone drip. Also received digoxin this admission. 4. Recently diagnosed gastric B-cell lymphoma. 5. Septic shock. Likely abdominal source. On IV antibiotics. Off vasopressors now. 6. Hypocalcemia secondary to acute kidney injury. Replaced. Improved. 7. Metabolic acidosis secondary to acute kidney injury. Improved. 8. Volume overload Plan: dialysis today. Continue with IV Lasix Add midodrine with dialysis Continue TPN Repeat labs in a.m.
[2023-12-07 11:32] LABS: Glucose,Whole Blood 230 mg/dL (70-110)
[2023-12-07] MEDS: MIDODRINE 5 MG TAB PO SCH (11:52)
--- NOTE | 2023-12-07 11:56 | P.PN ---
Subjective Progress Note Date: 12/07/23 Principal diagnosis: Acute hypoxic respiratory failure requiring intubation mechanical ventilation secondary to aspiration. This is a 73-year-old white male with history of chronic abdominal pain for the last 8 months has been treated with Protonix 40 mg daily for the last 3 months with no improvement. Patient had a 22 pound weight loss in the last [address] of the abdomen and pelvis 3 weeks ago showed thickening of the antral wall with pathological adenopathy posterior to the stomach suspicious of neoplasm. Today the patient underwent elective upper endoscopy to evaluate further, patient received IV sedation by anesthesia endoscope was inserted into the mouth, esop hagus was intubated without any difficulty there was evidence of large amount of liquid and solid food noted in the stomach suggestive of gastric outlet obstruction. Scope could not be advanced through the pylorus, however in the prepyloric area there was a large superficial ulceration identified with multiple biopsies were done from this area. The body cardia and fundus could not adequately visualize because of large amount of retained food in the stomach. Scope was withdrawn back to the stomach and upon careful examination the mucosa of the antrum body and cardia as well as the fundus appeared normal. Procedure was being performed and biopsies were done patient threw up and subsequently became hypoxic there was clearly evidence of witnessed aspiration anesthesia intubated the patient, procedure was terminated, and the patient was transferred to the ICU, this consult was initiated. Patient is now on assist- control rate of 20 tidal volume 500 FiO2 70% PEEP of 10 ABG is pending, earlier ABG showed profound hypoxia patient is on propofol at 50 mcg/kg/min, next ABG is pending. Chest x-ray showed chronic changes without evidence of acute pulmonary disease. Patient was evaluated today on 11/17/2023, patient underwent uneventful placement of a jejunostomy tube yesterday, in the ICU on 5 L, patient is relatively stable, not in any distress, patient continues to have nasogastric tube in place although he did have a J-tube placed yesterday. Patient was seen by oncology for his non-Hodgkin's lymphoma involving the gastric outlet. Today's x-ray showed evidence of pneumonia/bilateral interstitial infiltrate/edema patient was given a dose of Lasix, I reminded the patient had an aspiration episode which was significant. And he required intubation mechanical ventilation for a few days.WBC count today is 9.1 hemoglobin 7.9 electrolytes are normal renal profile is normal hence I plan to transfer the patient out of the ICU to a cardiac floor. And hopefully discharge planning in the next 2 days for On 11/29/2023, the patient is being seen for a follow-up. Remains intubated on the mechanical ventilator. The patient sedated on propofol which is running at 35 mcg/kg/min. Synchronous with mechanical ventilator. On today's evaluation, he is on assist-control mode with rate of 28, tidal volume of 550, FiO2 55% with a PEEP of 5. Chest x-ray shows lower lobe consolidation bilaterally worse on the right and the orotracheal tube is in good location. The blood gas showed a pH of 7.34 with a pCO2 of 35 and a pO2 of 84. No significant orotracheal secretions. Hemodynamically improved compared to yesterday. In fact, the patient is on minimal norepinephrine that was discontinued earlier this morning. The patient has converted to normal sinus rhythm. Remains on amiodarone at 0.5 mg/min. Overall fluid balance over the past 24 hours is 2.4 L positive. Urine output has been adequate and the patient is currently on IV Lasix. Nevertheless, the patient has developed progressive worsening renal function. Creatinine is up to 5.3 on today's evaluation with a potassium level of 4.4. Serum bicarb is at 18 with an anion gap of 9. WBC count is at 8.1 with a hemogl obin of 7 and a platelet count of 32 which has dropped compared to earlier evaluation. The rest of the coagulation profile was normal from 11/28/2023. Fibrinogen level is slightly elevated. Sputum samples have shown a combination of Citrobacter and Pseudomonas aeruginosa. Based on cultures and sensitivities, the patient will be taken off his IV Zosyn and he will be switched to IV meropenem. Output from the J-tube is fecal. Output from the NG tube is gastric and surgical wound site is dry clean and intact. He is afebrile for now. Hemodynamically, the patient is doing better. He remains on TPN for nutritional support. IV fluids are also running at a rate of 75 cc an hour. Remains on vancomycin. 11/22/2023, the patient is being seen for a follow-up. The patient remains on propofol at 50 mcg/kg/min. Ventilator settings are essentially unchanged. The patient remains on assist-control mode with rate of 18, tidal volume of 400, FiO2 50% with a PEEP of 5. The blood gas showed a pH of 7.37 with a pCO2 of 43 and pO2 of 127. Chest x-ray shows no significant interval change. Patient remains on normal saline at rate of 75 cc an hour and TPN at rate of 35 cc an hour. Fluid balance is positive. Hemodialysis was performed yesterday and the second session of hemodialysis to be done today. The patient's urine output is in the order of 20 to 30 cc an hour. The patient has an NG output of 350 cc for yesterday and the drainage from the J-tube is in the order of 400 cc over the past 24 hours. The blood work shows a WBC count of 10.8, hemoglobin 8.1 and platelet count of 41. Platelet counts are essentially stable and slightly improved compared to yesterday. The sodium level is at 133, potassium is at 4.3, BUN is 93 with a creatinine of 3.6. LFTs are within normal limits. Albumin is down to 2.1. The patient is currently on no pressors. Norepinephrine and vasopressin are both discontinued and the patient remains in normal sinus rhythm. No other significant events overnight. Family has been updated on his condition. Antibiotic coverage is currently with IV meropenem. Vancomycin and Zosyn have been both discontinued. On 12/01/2023, the patient remains sedated on propofol which is running at 25 mcg/kg/min., Comfortable and synchronous mechanical ventilator. The patient remains on assist-control mode rate of 28, tidal volume of 550, FiO2 40% and PEEP of 5. Blood gas shows a pH of 7.49 with a pCO2 of 34 and pO2 of 121. Patient underwent hemodialysis yesterday. No plans for hemodialysis today the patient is producing urine output. Remains on TPN for nutrition support rate of 75 cc an hour. IV fluids are currently at KVO. The chest x-ray from today shows bilateral lower lobe consolidation worse on the right. No significant change in the volume status. The patient continues to have third spacing and edema in all 4 extremities. Nevertheless, urine output is adequate at this point in time and the patient remains on Lasix 80 mg IV every 12 hours. Remains NPO. NG tube and J-tube are both drainage. Output is noted. Remains on IV meropenem. Afebrile. Currently on no pressors. Blood work shows a WBC count of 11.4, hemoglobin of 8.1 and platelet count of 46. Sodium is at 131, potassium level is at 3.7, chloride 101 and bicarb is at 24. BUN is 84 with a creatinine of 3.6. Glucose of 228. LFTs are within normal limits. Patient was reevaluated today on 12/02/23, patient remains in the ICU, patient is familiar to my service, I saw this patient 3 weeks ago. Since then he had a very complicated hospital course, related to his jejunostomy tube dislodging and leaking and picture of abdominal sepsis and worsening pneumonia/ARDS. Patient had to be placed back on mechanical ventilation, and he is now intubated and mechanically ventilated. He is on assist-control rate of 20 tidal volume 550 FiO2 40% PEEP of 5 ABG showed a pO2 of 111 pCO2 38 pH of 7.43 and I cut down his FiO2 to 35% and increase his flow rate from 60-70. Patient remains on TPN at 75 cc/h he is on propofol at 25 mcg/kg/min patient is on Cleviprex which I added today for elevated blood pressure. Receiving Lasix 80 mg every 12 hours is also on Merrem as per infectious disease. Patient is on hemodialysis and being followed by nephrology. Patient required multiple abdominal surgeries since his initial admission. Chest x-ray continues to show worsening pneumonia involving both lungs, right more so than left, I suspect there may be a component of ARDS. His initial presentation was the presentation of aspiration pneumonia to begin with and that was 3 weeks agoWBC count is 10.3 hemoglobin 8.6 sodium 131 potassium 4 chloride 100 bicarb 23 BUN is 111 creatinine 4.02 blood sugar is 248. Albumin is 1.9 Patient was evaluated today on , patient remains in the ICU, intubated and mechanically ventilated. Patient is on assist-control rate of 20 tidal volume 550 FiO2 35% and PEEP of 5 ABG showed a pO2 of 99 pCO2 39 pH of 7.44 patient is undergoing hemodialysis today, and the plan is to remove 2 L. He is remains on propofol at 35 mcg/kg/min, remains on TPN at 75 cc/h. Remains on Merrem. Patient is not requiring any pressors today. Yesterday patient did not tolerate to be off sedation long enough, and today we tried the same sedation in terruption, and the patient did not do well post interruption of sedation, became extremely agitated restless, tachycardic, and could not fully assess mental status off sedation. Hence the patient was placed back on AC mode of mechanical ventilation, and the plan is to continue the same supportive care measures. Family updated on his condition and most likely the patient will end up requiring tracheostomy in the next few days.WBC count is 8.5 hemoglobin 8.2 basic metabolic profile is relatively unremarkable BUN is 89 creatinine 3.45 chest x-ray today showed stable chest, suspect some right-sided pleural effusion which would likely improve with hemodialysis/ultrafiltration. X-ray of abdomen showed nonspecific nonobstructive bowel gas pattern Patient was seen today on 12/04/2023, remains in the ICU, intubated mechanically ventilated, on assist-control rate of 20 tidal volume 550 FiO2 35% PEEP of 5 ABG showed a pO2 of 112 pCO2 38 pH of 7.45, hence no changes were made in ventilator settings. Patient is on propofol at 35 mcg/kg/min he is also on IV fluid at KVO TPN at 75 cc/h. Remains on hemodialysis remains on Lasix 80 mg IV push twice daily, remains on Merrem. This x-ray continues to show the same findings/airspace disease in both lungs, not much of a change in the last 2 day s, however his oxygenation seems to be improved. WBC count is 7.1 hemoglobin 7.7. Electrolytes are normal, BUN is elevated 77 creatinine 3.32, patient is on hemodialysis. His condition was discussed today with the at bedside, and I do not believe the patient is ready to be weaned or extubated, however he seems to get extremely agitated when he goes off propofol, today I plan to transition propofol to Precedex, give him a trial on Precedex and determine whether the patient becomes more appropriate and at least ready for any weaning trials. Clinically I doubt if this will happen but we will go ahead and try Patient was evaluated today on 12/05/2023, remains in the ICU, intubated mecha nically ventilated, not much of a change noted in the last 24 hours. Remains on assist-control of 20 tidal volume 550 FiO2 35% PEEP of 5 ABG showed a pO2 of 90 pCO2 37 pH of 7.48 hence chose not to change any of his ventilator settings. Yesterday the patient failed again trial of weaning, and he was never anywhere near ready to be weaned in spite of placing him on Precedex and off propofol, at 1 point the patient became extremely agitated restless and he was biting on the endotracheal tube could not fully awake the patient and determine improvement in his mental status. Hence patient was placed back on propofol yesterday and he remains on propofol today. He is on propofol at 25 mcg/kg/min he is on TPN at 75 cc/h surgery is considering starting his J-tube feedings today. Remains on hemodialysis remains on Merrem remains on Lasix 80 mg IV push twice daily overall not much of a change his chest x-ray is basically about the same showing bibasilar airspace disease. Today I had a discussion with the regarding the option of tracheostomy extremely reluctant to have it done yet. Said that the patient had multiple complications with previous surgeries and she is afraid that he is going to have another complication with the surgeryWBC count is 10.2 hemoglobin is 8, basic metabolic profile is normal sodium 130 BUN 70 creatinine 2.89 Patient was seen today on 12/25, remains in the ICU, intubated mechanically ventilated, his ventilator settings are assist-control rate 20 tidal volume 550 FiO2 35% and PEEP of 5 ABG showed a pO2 of 103 pCO2 36 pH of 7.47 patient opens eyes but does not follow any other instructions. He is now off propofol for the last 24 hours, he is maintained on Precedex at 0.4, TPN at 75 cc/h vital AF at 5 mL/h. Patient remains on Merrem, patient did not receive dialysis today because issues related to occluded dialysis catheter. Nonetheless the patient is making urine, and continues to improve with diuretics. Chest x-ray continues to show bibasilar airspace disease, not much of a change control specialist the last 1 week.WBC count today is 11.8 hemoglobin is 7.9.Basic metabolic profile is normal BUN is 92 creatinine 3.74. Blood sugar is 226. Family is at bedside, considering his overall mental status at this point, not quite ready to start checking weaning parameters, and is not ready for weaning. Nonetheless I plan to keep him on Precedex, and hopefully avoid narcotics and other sedatives. His mentation starts clearing a bit more, then will start trials of weaning parameters and/or weaning trials Patient was seen today on 12/06/2023, remains in the ICU, intubated and mechanically ventilated, on assist-control rate of 20 tidal volume 550 FiO2 35% PEEP of 5 ABG showed a pO2 of 83 pCO2 33 pH of 7.50 hence the tidal volume was cut down to 500. Patient remains off propofol remains off narcotics is only on Precedex for sedation at 0.6 mg/kg/h. He is on norepinephrine at 0.02 TPN at 75 cc/h IV fluid at KVO vital AF at 10 mL/h is also on Merrem. Neurologically I am concerned about this patient neurological status, does not seem to be waking up much, he opens his eyes but does not follow any instructions and spite of sedation hold for quite some time. Hence I am recommending a CT of the brain and multiple recommending a neurological consultation on this patient. WBC count is 18 7 hemoglobin is 8.4, basic metabolic profile is normal BUN is 75 creatinine 2.95, patient is back on dialysis, he had a new hemodialysis catheter placed yesterday by vascular surgery, and he will be restarted back on hemodialysis. CT of the brain done shortly after evaluating the patient showed no acute intracranial process chest x-ray basically about the same, continues to show small left and moderate right basilar infiltrate. Has not changed much over the last 1 week, patient remains on antibiotics. Objective - Vital Signs Vital signs: Vital Signs Temp 99.7 F H 12/07/23 08:00 Pulse 71 12/07/23 11:37 Resp 26 H 12/07/23 11:00 BP 116/75 12/07/23 11:00 Pulse Ox 99 12/07/23 11:00 FiO2 35 12/07/23 11:38 Intake & Output 12/06/23 12/07/23 12/07/23 18:59 06:59 18:59 Intake Total 2801.938 9958.475 500.377 Output Total 1535 5060 475 Balance -276.511 -3064.525 25.377 Weight 110.5 kg 70.3 kg Intake: IV 993 1056 400 0.9 KVO 110 120 10 Normal Saline Pressure 33 36 15 Saline TPN 750 900 375 mvi tpn 75 Intake, IV Titration 155.489 319.475 20.377 Amount Dexmedetomidine/0.9% NaCl 155.489 191.316 (Pmx) 400 mcg In Empty Bag 1 bag @ 0.2 MCG/KG/HR 5.485 mls/hr IV .[id number] [facility] Rx#:[id number] Meropenem 1 gm In Sodium 100 Chloride 0.9% 100 ml @ 33 .333 mls/hr IVPB HS [facility] Rx#:[id number] Norepinephrine 8 mg In 0 28.159 20.377 Sodium Chloride 0.9% 250 ml @ 0.03 MCG/KG/MIN 6. 368 mls/hr IV .Q24H [facility] Rx#:[id number] Tube Feeding 80 120 50 Hemodialysis 500 Other 30 30 Output: Drainage 260 120 80 Right Abdomen 260 120 80 Urine 1275 440 395 Hemodialysis 2500 Hemodialysis Net Amount 1999 Other: Voiding Method Indwelling Catheter Indwelling Catheter # Bowel Movements 1 ABP, PAP, CO, CI - Last Documented Arterial Blood Pressure 128/54 - Exam General: Revealed 73-year-old white male intubated, mechanically ventilated, sedated, on Precedex, Skin: Skin is warm and dry and no rashes or lesions are noted. Eye: Pupils are equal, round and reactive to light, extra-ocular movements are intact; there is normal conjunctiva bilaterally. Ears, nose, mouth and throat: There are moist mucous membranes and no oral lesions. Neck: The neck is supple, there is no tenderness or JVD. Cardiovascular: There is a regular rate and rhythm. No murmur, rub or gallop is appreciated. Respiratory: Diminished breath sounds and crackles at the bases no rhonchi no wheezes Gastrointestinal: J-tube is noted RAYA drain is noted NG tube is in place mild abdominal distention, no rebound, no guarding, no bowel sounds, no significant leak noted from the tubes in the abdomen. Musculoskeletal: No deformities and no limitation range of motion Neurological: Patient does not follow any instructions barely opens his eyes on the painful stimuli Extremities patient has 1+ bipedal edema. - Labs CBC & Chem 7: 12/07/23 06:05 12/07/23 04:30 Labs: Abnormal Lab Results - Last 24 Hours (Table) 12/06/23 12/06/23 12/06/23 Range/Units 14:00 18:00 23:54 WBC (3.8-10.6) k/uL RBC (4.30-5.90) m/uL Hgb (13.0-17.5) gm/dL Hct (39.0-53.0) % RDW (11.5-15.5) % Plt Count (150-450) k/uL Neutrophils # (1.3-7.7) k/uL Lymphocytes # (1.0-4.8) k/uL ABG pH (7.35-7.45) ABG pCO2 (35-45) mmHg ABG HCO3 (21-25) mmol/L ABG Total CO2 (19-24) mmol/L ABG O2 Saturation (94-97) % Hemoglobin (13.0-17.5) gm/dL Sodium (137-145) mmol/L BUN (9-20) mg/dL Creatinine (0.66-1.25) mg/dL Glucose (74-99) mg/dL POC Glucose (mg/dL) 159 H 111 H 233 H (70-110) mg/dL Calcium (8.4-10.2) mg/dL 12/07/23 12/07/23 12/07/23 Range/Units 00:10 00:13 04:30 WBC (3.8-10.6) k/uL RBC (4.30-5.90) m/uL Hgb (13.0-17.5) gm/dL Hct (39.0-53.0) % RDW (11.5-15.5) % Plt Count (150-450) k/uL Neutrophils # (1.3-7.7) k/uL Lymphocytes # (1.0-4.8) k/uL ABG pH 7.50 H (7.35-7.45) ABG pCO2 33 L (35-45) mmHg ABG HCO3 26 H (21-25) mmol/L ABG Total CO2 27 H (19-24) mmol/L ABG O2 Saturation 97.3 H (94-97) % Hemoglobin 8.8 L (13.0-17.5) gm/dL Sodium 133 L (137-145) mmol/L BUN 75 H (9-20) mg/dL Creatinine 2.95 H (0.66-1.25) mg/dL Glucose 272 H (74-99) mg/dL POC Glucose (mg/dL) 277 H (70-110) mg/dL Calcium 7.1 L (8.4-10.2) mg/dL 12/07/23 12/07/23 12/07/23 Range/Units 06:04 06:05 11:30 WBC 18.7 H (3.8-10.6) k/uL RBC 3.08 L (4.30-5.90) m/uL Hgb 8.4 L (13.0-17.5) gm/dL Hct 26.4 L (39.0-53.0) % RDW 20.1 H (11.5-15.5) % Plt Count 108 L (150-450) k/uL Neutrophils # 17.0 H (1.3-7.7) k/uL Lymphocytes # 0.9 L (1.0-4.8) k/uL ABG pH (7.35-7.45) ABG pCO2 (35-45) mmHg ABG HCO3 (21-25) mmol/L ABG Total CO2 (19-24) mmol/L ABG O2 Saturation (94-97) % Hemoglobin (13.0-17.5) gm/dL Sodium (137-145) mmol/L BUN (9-20) mg/dL Creatinine (0.66-1.25) mg/dL Glucose (74-99) mg/dL POC Glucose (mg/dL) 308 H 230 H (70-110) mg/dL Calcium (8.4-10.2) mg/dL Assessment and Plan Assessment: Impression: Acute hypoxic respiratory failure requiring intubation mechanical ventilation secondary to aspiration. Status post J-tube placement 11/16/2023, multiple complications since then related to the J-tube placement requiring multiple surgeries. 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 Continue dialysis Continue Lasix Continue to avoid nephrotoxic drugs Continue GI and DVT prophylaxis Family updated on his condition Neurology consultation was initiated Remains critically ill, not ready for weaning mostly because of his overall neurological status and his debilitated state Again touched bases with the family regarding tracheostomy still reluctant to proceed with tracheostomy at this point Critical care time is over 30 Will continue to follow Time with Patient: Greater than 30
--- NOTE | 2023-12-07 15:56 | P.PN ---
Progress Note - Text Progress Note Date: 12/07/23 Chief Complaint: Aspirated This is a 73-year-old patient, follows with Dr. Patricia Deal. Patient was seen this morning in the ICU. Patient's and daughter at the bedside. History obtained predominantly by the . Patient been having trouble with his stomach symptoms for close to 8 months. Patient underwent EGD by Dr. Sahara Cheng yesterday. Patient was found to have ulcerated around the antrum and obstruction to the pylorus. A lot of retained food was found. Patient aspirated. Had to be intubated and brought to the ICU. On a Levophed drip. FiO2 50 and a PEEP of 6. Patient had been losing weight lost about 25 pounds. Previously has a history of mitral valve prolapse. November 13: ICU. Patient remains on Precedex drip and propofol drip. Did not do well attempted extubation yesterday. Patient been off Levophed. NG tube to suction. Spoke to patient's and son at the bedside. Biopsy results awaited. Hemoglobin dropped to 6.9 this morning. Get a unit of blood. November 14: ICU. Up in a chair. Extubated yesterday. NG tube to suction. at the bedside. 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 Oncology was consulted. They have ordered a port. Results discussed with Dr. Sahara Cheng. General surgery was consulted for J-tube placement. Discussed with at the bedside. Patient getting IV fluids, IV Zosyn,. Patient has been on IV amiodarone for A-fib-back in sinus rhythm. Multiple PACs. Did receive unit of blood yesterday. Also IV ferric gluconate. November 15: ICU. Patient earlier today underwent jejunostomy tube placement and a port placement. Patient awake. Answering questions. NG tube to suction present. Updated patient's . Patient remains on IV amiodarone and IV Zosyn. November 16: ICU. Up in the chair. NG tube present but not to suction. Trickle feeding through the jejunostomy tube should be started today. Dietitian has been on board. IV Zosyn to continue. Patient's and his sister at the bedside. Discussed. Also spoke with Dr. Serna. Given patient has no other predisposing cardiac factors for the A-fib except acute illness. His LV function is normal. Left atrium is normal. He has already been loaded with IV amiodarone. Will switch him to oral Lopressor 12.5 twice daily. Hence will DC amiodarone. Patient yesterday had wheezing was put on bronchodilators steroids per pulmonary. November 17: Propped up in bed. NG tube was discontinued. Sinus rhythm. Remains NPO. Getting G-tube feeding at 40 cc an hour. Dietitian following. Get arrangements done for DC home tomorrow including tube feeding. Increase activity discussed with patient and elder daughter at the bedside. Still requiring oxygen. Incentive spirometry. November 18: Patient up in recliner. Earlier today spoke to social human services assistants David. Informed patient is rather weak and will be going to the [facility]. Looking at authorization. Denae came to the room and spoke to patient his and his daughter. They are very keen to take the patient home as 3 daughters all nurses and they will take care of him at home. Patient earlier today to abdominal cramping and some loose stools.'s tube feeding was held. Told the nurse to start back at the rate of 40 cc an hour. He was before the getting it at 55 cc an hour. Incentive spirometry was again emphasized. Patient remains on 4 L of oxygen. November 19: I saw the patient this morning. Hence I am in the evening. Morning was sitting with his sons. Has some edema. Lungs had crackles I gave him 40 mg of Lasix. He did make good urine. Tube feeding was held from the previous evening of because of abdominal cramping. Acute abdominal series showed nonspecific bowel gas pattern and SBO to be ruled out. Family and patient was updated. Told him discharge will depend on day by day. Later this afternoon CT scanAnd abdomen pelvis done. Showed small bowel to be 3 point centimeter dilated. Some anasarca. Gastric findings. Gallstones. Later spoke to Dr. Irby from general surgery. They will further review and decide about further plan of action. Will give further dose of IV Lasix because of fluid overload from likely hypoalbuminemia and IV fluids previously received. Patient may take his pills by mouth. Total time spent today about 1 hour with over 40 minutes of discussion. Patient did state his breathing is better after Lasix this morning. November 20: Saw the patient this morning. was present. Patient received 2 more doses of Lasix. Diuresed well. Breathing much better. Lungs are sounding better. Discussed with Dr. Zepeda other surgeon. He is taking 3 cc out of the balloon and the gastrostomy tube. Started trickle feeding at 5 cc an hour. Will see how this does. Later in the day ran into the and the daughter again. Did update them on the same. Dilaudid was discontinued yesterday but morphine was ordered by surgery for patient having pain. Concerns about GI issues with that we will DC the morphine. As family does not want the same. November 21: Patient reclining bed. Tired. Several family members at the bedside. Including his and eldest daughter. Patient started on trickle feed yesterday at 5 cc an hour. This morning he has been on 10 cc an hour. Still having some loose stools. C. difficile was ordered. Patient on 2 L of nasal cannula. Has diuresed well. Will give an additional dose of Lasix today. If C. difficile is negative and the diarrhea is from the tube feedings we may have to use a fecal management system to keep him comfortable. Otherwise patient remains NPO. Dietitian is following the patient. Care was discussed length with patient the and daughter at the bedside. Questions answered. Liquid Tylenol has been added for abdominal pain. Avoid narcotics. Elevated white count likely from Solu-Medrol 11/23/2023--patient was feeling better today. Multiple family member at bedside. No issues overnight. Normal saline at 10 cc an hour, tube feeding at 20 cc an hour, remains on Zosyn, on 3 L oxygen. Afebrile. Heart rate 62, respiratory rate 16, blood pressure 114/67, saturating 91% on 3 L. WBCs 14.5, 9.7 hemoglobin. Platelet 242. BMP is unremarkable. Pulmonary and general surgery following. General surgery recommended to continue tube feeds at 20 cc/h. 11/24/2023--patient reported significant abdominal discomfort, also noted to have leak around G-tube. General surgery is following, evaluated the patient at bedside, adjusted tube feeds. Also reported having diarrhea, on 2 L oxygen, went up to 5 L. Blood pressure was low, 500 mL fluid bolus with close monitoring of respiratory status ordered. Currently on DuoNebs, Solu-Medrol, will continue Zosyn. Chest x-ray showed a left lower lobe infiltrate. Abdominal x-ray showed multiple air-fluid levels. CT abdomen showed multiple dilated small bowel loops, consistent with obstruction, pneumoperitoneum, cholelithiasis and ascites. WBCs 14.1, platelet 255, hemoglobin 8.9. NG tube in place. Family at bedside. patient transferred to SICU for close monitoring. 11/25/23--patient is currently in the ICU, required Levophed overnight due to low blood pressure, low urine output with creatinine trending up. Nephrology following. Crusher Foreman also following. Patient remains n.p.o., NG tube in place, following NG tube insertion patient had total of 2 L output, J-tube was draining approximately 200 cc over last 8 hours, continues to have abdominal pain and abdominal tenderness. Patient on IV fluids. Currently on 4 L oxygen. WBCs 8.2, hemoglobin 12.3, platelet 188. Chest x-ray earlier today showed right sided port and a stable left lung airspace disease, NG tube in place. Patient currently on Zosyn, on IV Dilaudid for pain control, on IV Solu-Medrol. General surgery planning for OR today, started on TPN. 11/26/23--patient was seen and examined today. Patient is currently sedated, intubated on mechanical ventilation. Family at bedside. Patient underwent ex lap, abdominal washout, small bowel resection with new feeding jejunostomy tube placement yesterday, small bowel was noted to be perforated with significant contamination of abdominal cavity. Patient is currently on vancomycin and Zosyn. Creatinine went up to 2.85, nephrology following, recommended to continue IV fluids, avoid nephrotoxin Preserved EF on echocardiogram.. Patient currently on Levophed, vasopressin in the ICU for close monitoring. Patient is afebrile, heart rate 122, blood pressure 129/76, currently on mechanical ventilation, sedated. November 26: ICU. Intubated. FiO2 60 and a PEEP of 5. Drips include IV amiodarone. Heart rate was up early did get fired microgram of IV digoxin and 2.5 mg of IV Lopressor. Did drop her blood pressure bit. Urine output was low. Received 80 mg of IV Lasix. Ahmet to 150 cc. Other drips include IV propofol, vasopressin, Levophed. TPN was started yesterday. Antibiotics include IV Zosyn and vancomycin. Patient has a J-tube to drainage to gravity. Spoke to patient's younger daughter and at the bedside. Prognosis guarded. Continue current treatment plan. Chest x-ray shows right lower lobe consolidation. Small pleural effusion. November 27: ICU. Intubated. FiO2 55 and a PEEP of 5. Antibiotics include IV vancomycin. Drips include Levophed at a small dose, IV vasopressin, propofol, amiodarone. Patient converted to sinus rhythm this morning. Getting TPN and normal saline at 75 cc an hour. Urine output about 25 cc an hour. RAYA drain put out about 260 cc last 12 hours that is last entry level receptionist. NG tube with bilious output. And also GI J-tube output to gravity. Spoke to patient's and daughter at the bedside. They understand patient still not out of the kee. Platelets have dropped-therefore probably Zosyn stopped. November 28: ICU. Intubated. FiO2 55 and a PEEP of 5. Patient is in sinus rhythm. Seen this morning. Due for dialysis catheter this afternoon. Urine output about 15 to 20 cc an hour. Patient is on IV Lasix 80 mg every 12. Saline is KVO. Drips include IV propofol vasopressin. Patient having significant output through the RAYA drain and the jejunostomy tube to drainage. Creatinine had been getting worse. Patient's at the bedside. Understands patient's remains critically ill. Hemoglobin is down to 7. Given that patient's pain hypotensive, and on vasopressin we will give a unit of blood with dialysis. Getting TPN antibiotic changed to IV meropenem November 29: ICU. Intubated. FiO2 55 and a PEEP of 5. Remains in sinus rhythm. Getting TPN. Dialyzed yesterday and this morning. About 1000 cc removed. Urine output about 50 cc an hour. Patient is on IV propofol. Off vasopressin. Still having significant output through the RAYA drain and jejunostomy tube. Patient received a second unit of blood yesterday. Patient's and daughter at the bedside. I did discuss guarded prognosis. Did asked them to revisit CODE STATUS.. Getting IV meropenem. November 30: ICU. Intubated. Did get a sedation holiday t today. Back on propofol. Getting TPN. Still getting IV Lasix. Fair urine output. Jejunostomy tube in last 8 hours was about 30 cc output. RAYA drain in the 8 hours had about 180 cc output. Telemetry shows sinus rhythm. NG tube has low intermittent suction with negative output. On the vent with FiO2 40 and a PEEP of 5. No hemodialysis today. Discussed with the and eldest daughter at the bedside. IV meropenem-patient's sputum had grown Citrobacter freundii and Pseudomonas aeruginosa. December 01: ICU. Intubated. Jejunostomy tube to gravity. Only 10 cc output in last 24 hours. RAYA drain. About 190 cc last 6 hours. Nasogastric tube to low intermittent suction. Minimal output. Patient is on a small dose of propofol 5 mics. Telemetry shows sinus rhythm. Patient started on small dose of Cleviprex this morning. Blood pressure. Getting TPN. FiO2 35 and PEEP of 5. Discussed with the at the bedside. Hemodialysis today December 02: ICU. Patient remains intubated. FiO2 35 PEEP of 5. Patient is on IV propofol. IV Cleviprex was discontinued yesterday. Also remains on TPN. Telemetry shows sinus rhythm. NG tube is good no output. Still significant output through the RAYA drain. Jejunostomy tube has minimal output. Patient had hemodialysis today 2 L of fluid was removed. Oral half liters yesterday. Patient getting a sedation holiday. General Surgery started the patient on trickle feeding at 10 cc an hour. I did speak to patient's at the bedside. Prognosis remains guarded but there is some improvement. December 03: ICU. Intubated. FiO2 35 PEEP of 5. Drips include IV propofol and Precedex. Getting TPN. Telemetry shows sinus rhythm. Remains on IV Lasix 80 mg twice a day. IV meropenem. Because patient gets easily agitated when transitioning off propofol he has been switched over to Precedex. For hemodialysis today. December 04: ICU. Intubated. FiO2 35 and a PEEP of 5. Patient been taken off propofol is on Precedex. Telemetry sinus rhythm. J-tube with minimal output. RAYA drain with decreased output. NG tube to suction minimal output. Family wanted to hold off trickle feeding until cleared by oncology. Which he did today. Trickle feeding will be started today. Spoke to patient's and one of the daughters at the bedside. Dr. Russ is spoken to the earlier this point they want to do further tracheostomy tube. December 05: ICU. Intubated. FiO2 35 PEEP of 5. Patient remains on Precedex and PPN. Patient's dialysis catheter was not functioning is getting another [address] Bobby this afternoon. Remains on IV meropenem. Has a RAYA drain in the jejunostomy tube to gravity. NG tube to low intermittent suction. No family at the bedside. December 06: ICU. Intubated. FiO2 35 PEEP of 5. RAYA drain putting out about approximately 120 cc per shift. Patient on IV Precedex. FiO2 35 PEEP of 5. Telemetry-sinus rhythm. Patient occasionally been put on small dose of Levophed specially for hemodialysis getting it today. Also started on midodrine for low blood pressure. Tolerating tube feeding at 10 cc an hour. Also had a bowel movement. Mentation has not improved. Even with sedation holiday. Neurology consulted. CT brain shows no acute process. Active Medications Acetaminophen (Acetaminophen Tab 325 Mg Tab) 650 mg PO Q4HR PRN PRN Reason: Fever and/ or Pain Last Admin: 11/22/23 08:46 Dose: 650 mg Acetaminophen (Acetaminophen Oral Susp (Peds) 3,840 Mg/120 Ml Bottle) 480 mg PO Q4HR PRN PRN Reason: Fever Albuterol/Ipratropium (Ipratropium-Albuterol 3 Ml Neb) 3 ml INHALATION RT-QID [facility] Last Admin: 12/07/23 11:37 Dose: 3 ml Albuterol/Ipratropium (Ipratropium-Albuterol 3 Ml Neb) 3 ml INHALATION RT-Q2H PRN PRN Reason: Shortness Of Breath Or Wheezing Last Admin: 12/03/23 03:45 Dose: 3 ml Chlorhexidine Gluconate (Chlorhexidine Gluconate 15 Ml Cup) 15 ml MUCOUS MEM BID [facility] Last Admin: 12/07/23 09:01 Dose: 15 ml Dextrose/Water (Dextrose 50% Syringe 50 Ml) 25 ml IVP PER PROTOCOL PRN; Protocol PRN Reason: Hypoglycemia Dextrose/Water (Dextrose 50% Syringe 50 Ml) 50 ml IVP PER PROTOCOL PRN; Protocol PRN Reason: Hypoglycemia Furosemide (Furosemide 10 Mg/Ml 10 Ml Vial) 80 mg IV Q12H [facility] Last Admin: 12/07/23 06:31 Dose: 80 mg Hydromorphone HCl (Hydromorphone 0.5 Mg/0.5 Ml Syringe) 0.5 mg IVP Q6HR PRN PRN Reason: Pain Last Admin: 12/06/23 11:10 Dose: 0.5 mg Sodium Chloride (Saline 0.9%) 1,000 mls @ 20 mls/hr IV .Q24H [facility] Last Admin: 12/07/23 12:27 Dose: 20 mls/hr Meropenem 1 gm/ Sodium (Chloride) 100 mls @ 33.333 mls/hr IVPB HS [facility] Last Admin: 12/06/23 22:34 Dose: 33.333 mls/hr Dexmedetomidine HCl 400 mcg/ (IV Solution) 100 mls @ 5.485 mls/hr IV .[id number] [facility]; Protocol Last Titration: 12/07/23 15:17 Dose: 0.8 mcg/kg/hr, 21.94 mls/hr Norepinephrine Bitartrate 8 mg (/ Sodium Chloride) 258 mls @ 6.368 mls/hr IV .Q24H [facility]; Protocol Last Titration: 12/07/23 14:34 Dose: 0.03 mcg/kg/min, 6.368 mls/hr Parenteral Vitamin Supplement 10 ml/ Zinc/Copper/Manganese/Selenium 1 ml/ Sodium Acetate 60 meq/ Sodium Chloride 52 meq / Potassium Chloride 14 meq/Calcium Gluconate 2.25 gm/Magnesium Sulfate 0.5 gm/Amino Acids/Dextrose 1,084.5 mls @ 75 mls/hr IV .BY DURATION [facility] Last Admin: 12/06/23 23:01 Dose: 75 mls/hr Sodium Acetate 60 meq/ Sodium Chloride 52 meq/ Potassium Chloride 14 meq/ Calcium Gluconate 2.25 gm/ Magnesium Sulfate 0.25 gm/ Amino Acids/Dextrose 1,073 mls @ 75 mls/hr IV .BY DURATION [facility] Last Admin: 12/07/23 11:54 Dose: 75 mls/hr Insulin Aspart (Insulin Aspart (Novolog) 100 Unit/Ml Vial) 0 unit SQ 0000,0600,1200,1800 [facility]; Protocol Last Admin: 12/07/23 11:52 Dose: 4 unit Insulin Detemir (Insulin Detemir (Levemir) 100 Unit/Ml Syr) 24 unit SQ DAILY@0700 [facility] Last Admin: 12/07/23 06:30 Dose: 24 unit Methylprednisolone Sodium Succinate (Methylprednisolone Sod Succi 40 Mg/Ml 1 Ml Vial) 40 mg IV DAILY@1800 [facility] Last Admin: 12/06/23 22:18 Dose: 40 mg Metoprolol Tartrate (Metoprolol Tartrate 5 Mg/5 Ml Vial) 2.5 mg IVP Q6HR PRN PRN Reason: Heart Rate - HIGH Last Admin: 11/27/23 08:25 Dose: 2.5 mg Midodrine (Midodrine 5 Mg Tab) 5 mg PO AC-TID [facility] Last Admin: 12/07/23 11:52 Dose: 5 mg Miscellaneous Information (Magnesium Replacement Protocol 1 Each Misc) 1 each MISCELLANE DAILY PRN; Protocol PRN Reason: Per Protocol Naloxone HCl (Naloxone 0.4 Mg/Ml 1 Ml Vial) 0.2 mg IV Q2M PRN PRN Reason: Opioid Reversal Pantoprazole Sodium (Pantoprazole 40 Mg/10 Ml Vial) 40 mg IVP BID [facility] Last Admin: 12/07/23 09:00 Dose: 40 mg Past medical history to include: GERD Social history: . No smoking. Physical examination: VITAL SIGNS: Afebrile,78, 28, 81/70, 98% on vent GENERAL: Sedated, right chest wall port EYES: Pupils equal. Conjunctiva edouard l. HEENT: External appearance of nose and ears normal, oral cavity-endotracheal tube. NG tube-low intermittent suction NECK: JVD unable to assess; masses not palpable. HEART: First and second heart sounds are normal; edema, present LUNGS: Respiratory rate increased, decreased breath sounds ABDOMEN: Soft, nontender, liver spleen not palpable, no masses palpable..jejunostomy tube-attached to tube feeding 10 cc an hour. RAYA drain. Incision with stitches PSYCH: Sedated INVESTIGATIONS, reviewed in the clinical context: December 06: White count 18.7 hemoglobin 8.4 platelets 108 sodium 133 potassium 4 BUN 75 creatinine 2.95 December 05: White count 1.8 hemoglobin 7.9 platelets 107 sodium 130 potassium 3.9 BUN 92 creatinine 3.74 Small bowel resection [December 01]: Ischemic active enteritis with focal necrosis and perforation. Serosal fibrous adhesions. Viable margins. December 04: White count 10.2 hemoglobin 8 platelets 90 sodium 130 potassium 4 BUN 70 creatinine 2.89 Sputum culture: [November 25]: Citrobacter freundii. Pseudomonas aeruginosa November 20: White count 14.4 hemoglobin 8.8 platelets 229 potassium 4.1 BUN [address] scan abdomen [November 19] possible small bowel obstruction Stool: C. difficile negative November 16: White count 9.1 hemoglobin 7.9 platelets 259 potassium 4.3 creatinine 0.92 November 15: WBC 13 hemoglobin 7.7 platelets 248 potassium 4.3 creatinine 0.87 2D echo: EF 55 to 60%. November 14: White count 10.7 hemoglobin 7.5 platelets 239 potassium 4.2 cr eatinine 0.96 Kidneys bladder: Unremarkable November 13: White count 12 hemoglobin 6.9 platelets 276 potassium 4.4 creatinine 1.21 magnesium 1.8 iron 6 TIBC 365% saturation 1.64 transferrin 261 ferritin 34.6 B12 569 folate 4.4 November 11: Creatinine 0.86 EGD: Large amount of retained solid liquid food noted in the stomach. Large superficial gastric antral ulceration involving most of the antrum extending into the pylorus causing pyloric stenosis. Biopsies were obtained. Chest x-ray film personally reviewed by me-scattered infiltrates Assessment plan: -Aspiration pneumonitis bilateral from retained gastric contents mostly food and liquids, causing acute hypoxic respiratory failure: Subsequent sputum culture November 25: Citrobacter freundii, Pseudomonas aeruginosa IV meropenem Pulmonary following -Acute pulmonary edema and fluid overload from hypoalbuminemic state and fluids from IV.:: Has been getting Lasix and dialysis -Altered mentation. Possibly encephalopathy. Could be delirium. CT brain [December 06] nothing acute Neurology consulted -Small l bowel perforation at site of jejunostomy tube tip with balloon..: Portion of small bowel resected. On November 24. New J-tube was placed.- drainage to gravity:-Now discontinued Trickle feeding at 10 cc an hour being tolerated -Acute kidney injury. Possible ATN from hypotensive shock: Slow to respond Renal ultrasound unremarkable. Started on renal replacement therapy on November 28. Followed by nephrology -Nutrition Jejunostomy tube placed November [address] Ewing Getting TPN. Trickle feeds through J-tube at 10 cc an hour -Acute recurrent atrial fibrillation-converted to sinus rhythm Received IV amiodarone. Cardiology following Lopressor -Acute hypoxic respiratory failure from aspiration pneumonia, status post ventilator assisted: Reintubated November 25. FiO2 35 PEEP of 5 -Septic shock, recovered -Hypertension Patient started on Cleviprex-discontinued -Intermittent hypotension Intermittent use of Levophed. Midodrine added -Normocytic anemia likely to secondary underlying lymphoma. Also anemia of blood draw. Iron deficiency anemia Received 2 unit of blood. IV iron. -Severe thrombocytopenia. Would consider coagulation disorder secondary to infection., In the setting of underlying lymphoma.: Slow to respond Hematology following. -Acute blood loss anemia, Received 2 units of blood -GERD PPI -Acute diarrhea secondary to tube feeding.: Resolved C. difficile ruled out. -Large superficial gastric antral ulceration involving the gastric antrum extending into the pylorus with gastric outlet obstruction. 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 Port placed. For outpatient PET scan. -Full code Dialysis today. Neurology consulted Past Medical History Past Medical History: GERD/Reflux History of Any Multi-Drug Resistant Organisms: None Reported Past Surgical History: Heart Catheterization Additional Past Surgical History / Comment(s): colonsocopy,spinal injection, Past Anesthesia/Blood Transfusion Reactions: No Reported Reaction Past Psychological History: No Psychological Hx Reported Smoking Status: Never smoker Past Alcohol Use History: None Reported Past Drug Use History: None Reported
[2023-12-07 17:56] LABS: Glucose,Whole Blood 213 mg/dL (70-110)
[2023-12-07 21:00] LABS: Glucose,Whole Blood 225 mg/dL (70-110)
[2023-12-07 23:24] LABS: Glucose,Whole Blood 247 mg/dL (70-110)
--- NOTE | 2023-12-07 23:35 | P.CNNES ---
History of Present Illness Consult date: 12/07/23 Requesting physician: Pooja Noble Reason for Consult: Altered mental status, unresponsive History of Present Illness: Patient is a 73-year-old male with history of non-Hodgkin's lymphoma, came to the hospital on 11/12/2023 for chronic abdominal pain going on for last 8 months. Patient had a 22 pound weight loss over 4 months. Patient came for elective EGD. While undergoing EGD, patient vomited, aspirated and was intubated. Patient aspirated a lot of gastric contents. Patient was subsequently extubated and sent to the floor with a GJ tube. While on the floor, patient started having abdominal pain again. Patient was found to have small bowel obstruction. For perforated small bowel, adhesive disease for which patient underwent exploratory laparotomy, abdominal washout, small bowel resection and Witzel feed ing jejunostomy on 11/25/2023. Patient has not been able to be extubated. Patient has been on propofol, but has not been able to be extubated and not waking up. Propofol was discontinued for over 24 hours. Patient has been started on Precedex, currently on 0.7 mcg/kg/h. Patient's grandson was present, who mentions that when the Precedex was decreased to 0.4 mcg/kg/h, patient was opening eyes. However with increasing dose, he is not as responsive. Even with decrease sedation, patient does not wake up, opens eyes but does not track, does not follow directions. This prompted neurology consultation. Patient presently is intubated, sedated on Precedex 0.7 mcg/kg/h. Patient's grandson mentions that patient occasionally drinks alcohol. No tobacco. He has been very active, does not use any assistive device for walking. He walks by himself. There is no history of dementia. Review of Systems ROS unobtainable: due to endotracheal tube, due to mental status Past Medical History Past Medical History: GERD/Reflux History of Any Multi-Drug Resistant Organisms: None Reported Past Surgical History: Heart Catheterization Additional Past Surgical History / Comment(s): colonsocopy,spinal injection, Past Anesthesia/Blood Transfusion Reactions: No Reported Reaction Past Psychological History: No Psychological Hx Reported Smoking Status: Never smoker Past Alcohol Use History: None Reported Past Drug Use History: None Reported - Past Family History Father Family Medical History: Cancer Medications and Allergies Home Medications Medication Instructions Recorded Confirmed Type Fluticasone Nasal [place] [Flonase 2 spray EA NOSTRIL DAILY 11/11/23 11/12/23 History Nasal [place]] Pantoprazole Sodium 40 mg PO BID 11/11/23 11/12/23 History Allergies Allergy/AdvReac Type Severity Reaction Status Date / Time No Known Allergies Allergy Verified 11/12/23 09:32 Physical Examination - Vital Signs Vital Signs: Vital Signs Temp Pulse Pulse Resp BP BP BP 12/07/23 19:00 69 20 12/07/23 18:30 71 20 110/57 12/07/23 18:00 73 16 12/07/23 17:30 73 20 105/57 12/07/23 17:00 98.1 F 78 75 27 H 120/58 12/07/23 16:30 78 25 H 108/66 12/07/23 16:00 98.1 F 77 20 12/07/23 15:31 12/07/23 15:30 79 20 110/96 12/07/23 15:00 79 20 105/73 12/07/23 14:30 75 24 100/60 12/07/23 14:00 78 28 H 12/07/23 13:30 75 25 H 129/71 12/07/23 13:00 72 25 H 130/64 12/07/23 12:30 71 21 130/64 12/07/23 12:05 72 12/07/23 12:00 98.7 F 71 28 H 95/62 12/07/23 11:38 12/07/23 11:37 71 12/07/23 11:30 72 26 H 95/62 12/07/23 11:00 75 26 H 116/75 12/07/23 10:30 77 24 12/07/23 09:30 76 27 H 12/07/23 09:00 77 26 H 12/07/23 08:36 76 12/07/23 08:30 75 28 H 12/07/23 08:25 75 12/07/23 08:00 99.7 F H 76 28 H 12/07/23 07:45 12/07/23 07:00 74 15 12/07/23 06:45 78 26 H 12/07/23 06:30 74 24 12/07/23 06:15 78 29 H 12/07/23 06:00 78 22 12/07/23 05:45 78 20 12/07/23 05:30 79 20 12/07/23 05:15 80 27 H 12/07/23 05:00 80 20 12/07/23 04:45 81 25 H 12/07/23 04:30 81 21 12/07/23 04:15 81 21 111/65 12/07/23 04:00 98.6 F 82 22 12/07/23 03:45 81 25 H 115/70 12/07/23 03:30 80 20 12/07/23 03:15 78 20 12/07/23 03:00 80 20 12/07/23 02:45 76 28 H 12/07/23 02:30 76 20 12/07/23 02:15 76 27 H 12/07/23 02:00 80 26 H 12/07/23 01:45 80 22 12/07/23 01:30 80 27 H 12/07/23 01:15 78 20 12/07/23 01:00 80 25 H 12/07/23 00:45 81 20 12/07/23 00:30 82 20 12/07/23 00:15 85 20 12/07/23 00:02 12/07/23 00:00 88 25 H 12/06/23 23:45 89 21 12/06/23 23:30 93 20 12/06/23 23:15 96 29 H 12/06/23 23:00 93 27 H 12/06/23 22:45 92 25 H 12/06/23 22:30 90 21 12/06/23 22:15 90 25 H 12/06/23 22:00 91 25 H 12/06/23 21:49 92 26 H 12/06/23 21:45 92 26 H 12/06/23 21:37 98.3 F 96 16 128/64 12/06/23 21:30 93 25 H 12/06/23 21:15 99 27 H 12/06/23 21:00 92 21 12/06/23 20:45 98 25 H 12/06/23 20:30 94 25 H 12/06/23 20:15 91 25 H 111/71 12/06/23 20:00 98.3 F 91 24 12/06/23 19:53 87 12/06/23 19:45 84 29 H 12/06/23 19:40 88 12/06/23 19:33 12/06/23 19:30 86 27 H 12/06/23 19:15 85 27 H Pulse Ox FiO2 12/07/23 19:00 100 12/07/23 18:30 99 12/07/23 18:00 99 12/07/23 17:30 98 12/07/23 17:00 100 12/07/23 16:30 98 12/07/23 16:00 98 35 12/07/23 15:31 35 12/07/23 15:30 99 12/07/23 15:00 99 12/07/23 14:30 99 12/07/23 14:00 98 12/07/23 13:30 98 12/07/23 13:00 100 12/07/23 12:30 100 12/07/23 12:05 12/07/23 12:00 99 35 12/07/23 11:38 35 12/07/23 11:37 12/07/23 11:30 99 12/07/23 11:00 99 12/07/23 10:30 100 12/07/23 09:30 99 12/07/23 09:00 99 12/07/23 08:36 12/07/23 08:30 97 12/07/23 08:25 12/07/23 08:00 100 35 12/07/23 07:45 35 12/07/23 07:00 100 12/07/23 06:45 100 12/07/23 06:30 100 12/07/23 06:15 100 12/07/23 06:00 99 12/07/23 05:45 100 12/07/23 05:30 99 12/07/23 05:15 100 12/07/23 05:00 100 12/07/23 04:45 100 12/07/23 04:30 100 35 12/07/23 04:15 100 12/07/23 04:00 100 35 12/07/23 03:45 100 12/07/23 03:30 100 12/07/23 03:15 100 12/07/23 03:00 99 35 12/07/23 02:45 99 12/07/23 02:30 99 12/07/23 02:15 96 12/07/23 02:00 99 35 12/07/23 01:45 98 12/07/23 01:30 99 12/07/23 01:15 99 12/07/23 01:00 100 35 12/07/23 00:45 97 12/07/23 00:30 98 12/07/23 00:15 99 12/07/23 00:02 35 12/07/23 00:00 99 35 12/06/23 23:45 97 12/06/23 23:30 99 12/06/23 23:15 98 12/06/23 23:00 99 35 12/06/23 22:45 97 12/06/23 22:30 97 12/06/23 22:15 97 12/06/23 22:00 98 35 12/06/23 21:49 99 12/06/23 21:45 99 12/06/23 21:37 99 12/06/23 21:30 99 12/06/23 21:15 98 12/06/23 21:00 97 35 12/06/23 20:45 98 12/06/23 20:30 97 12/06/23 20:15 89 L 12/06/23 20:00 97 35 12/06/23 19:53 12/06/23 19:45 96 12/06/23 19:40 12/06/23 19:33 35 12/06/23 19:30 99 12/06/23 19:15 100 Intake and Output 12/07/23 12/07/23 12/07/23 06:59 14:59 22:59 Intake Total 1103.475 135.558 2251.604 Output Total 714 549 8542 Balance 613.475 298.359 -3599.396 Intake: IV 704 694 490 0.9 KVO 80 70 100 Normal Saline Pressure 24 24 15 Saline TPN 600 600 375 Intake, IV Titration 319.475 139.359 101.604 Amount Dexmedetomidine/0.9% NaCl 191.316 108.228 87.029 (Pmx) 400 mcg In Empty Bag 1 bag @ 0.2 MCG/KG/HR 5.485 mls/hr IV .[id number] [facility] Rx#:[id number] Meropenem 1 gm In Sodium 100 Chloride 0.9% 100 ml @ 33 .333 mls/hr IVPB HS [facility] Rx#:[id number] Norepinephrine 8 mg In 28.159 31.131 14.575 Sodium Chloride 0.9% 250 ml @ 0.03 MCG/KG/MIN 6. 368 mls/hr IV .Q24H [facility] Rx#:[id number] Tube Feeding 80 80 40 Hemodialysis 400 Other 60 60 Output: Gastric Drainage 50 Drainage 120 80 40 Right Abdomen 120 80 40 Urine 370 595 200 Stool 1 Hemodialysis 2400 Hemodialysis Net Amount 1999 Other: Voiding Method Indwelling Catheter Indwelling Catheter Indwelling Catheter Weight 70.3 kg ABP, PAP, CO, CI - Last 8 Hours Arterial Blood Pressure 124/50 Arterial Blood Pressure 116/47 Arterial Blood Pressure 94/43 Arterial Blood Pressure 90/44 Arterial Blood Pressure 101/43 Arterial Blood Pressure 126/57 Arterial Blood Pressure 112/60 Arterial Blood Pressure 128/72 Arterial Blood Pressure 97/48 Arterial Blood Pressure 95/49 Arterial Blood Pressure 81/70 Arterial Blood Pressure 155/68 Arterial Blood Pressure 134/57 Arterial Blood Pressure 88/43 Arterial Blood Pressure 138/59 Arterial Blood Pressure 91/44 Patient is an elderly male, who is intubated, sedated on Precedex 0.7 mcg/kg/h. Patient is severely encephalopathic. Patient GCS is 4 [id number] On cranial nerve examination, pupils are equal, round and reacting to light, oculocephalics are slightly present. Corneals are clearly present. Regarding lower cranial nerves, patient does have gag and cough, and is breathing over the ventilator. On muscle strength testing, patient does not follow directions. Patient does not move his extremities to nailbed pressure. Deep tendon reflexes are symmetric no at the brachioradialis, 1 at the biceps, 0 knees, plantars are flat bilaterally. Sensory to touch cannot be assessed. With noxious stimulus, patient tries to open his eyelids very minimally. Does not move extremities. Cerebellar function cannot be assessed. Tone and bulk of muscles normal. Gait cannot be assessed. On general examination, there is no carotid bruit or murmur, S1-S2 audible. Chest is clear on consultation. Abdomen is soft, nontender, liver spleen not palpable, no masses palpable..jejunostomy tube-attached to tube feeding 10 cc an hour. RAYA drain. Incision with stitchesPeripheral pulses are present. Positive peripheral edema. Results - Laboratory Findings CBC and BMP: 12/07/23 06:05 12/07/23 04:30 Abnormal Lab Findings: Abnormal Labs 11/12/23 11/12/23 11/12/23 11:04 12:56 12:56 WBC RBC 3.27 L Hgb 8.9 L Hct 28.6 L MCH MCHC RDW Plt Count Immature Gran # Neutrophils # Neutrophils # (Manual) Lymphocytes # Lymphocytes # (Manual) Eosinophils # Metamyelocytes # (Man) Myelocytes # (Manual) Nucleated RBCs NRBC/100 WBC Diff PT INR Fibrinogen ABG pH ABG pCO2 ABG pO2 ABG HCO3 ABG Total CO2 ABG O2 Saturation Hemoglobin Sodium Potassium Chloride Carbon Dioxide Anion Gap BUN Creatinine BUN/Creatinine Ratio Glucose 127 H POC Glucose (mg/dL) 134 H Plasma Lactic Acid Hector Calcium Ionized Calcium Krystal Phosphorus Iron % Saturation AST Total Protein Albumin Albumin/Globulin Ratio Triglycerides Procalcitonin Urine Protein Triple Phos Crystals Amorphous Sediment Urine Mucus Crossmatch 11/12/23 11/12/23 11/13/23 13:48 22:59 05:15 WBC RBC Hgb Hct MCH MCHC RDW Plt Count Immature Gran # Neutrophils # Neutrophils # (Manual) Lymphocytes # Lymphocytes # (Manual) Eosinophils # Metamyelocytes # (Man) Myelocytes # (Manual) Nucleated RBCs NRBC/100 WBC Diff PT INR Fibrinogen ABG pH 7.28 L ABG pCO2 47 H ABG pO2 75 L 143 H ABG HCO3 ABG Total CO2 25 H ABG O2 Saturation 99.7 H Hemoglobin 8.5 L 7.5 L Sodium Potassium Chloride Carbon Dioxide Anion Gap BUN Creatinine BUN/Creatinine Ratio Glucose POC Glucose (mg/dL) 172 H Plasma Lactic Acid Hector Calcium Ionized Calcium Krystal Phosphorus Iron % Saturation AST Total Protein Albumin Albumin/Globulin Ratio Triglycerides Procalcitonin Urine Protein Triple Phos Crystals Amorphous Sediment Urine Mucus Crossmatch 11/13/23 11/13/23 11/13/23 05:52 05:52 11:58 WBC 14.0 H RBC 2.78 L Hgb 7.6 L Hct 24.5 L MCH MCHC RDW Plt Count Immature Gran # Neutrophils # 11.9 H Neutrophils # (Manual) Lymphocytes # Lymphocytes # (Manual) Eosinophils # Metamyelocytes # (Man) Myelocytes # (Manual) Nucleated RBCs NRBC/100 WBC Diff PT INR Fibrinogen ABG pH ABG pCO2 ABG pO2 ABG HCO3 ABG Total CO2 ABG O2 Saturation Hemoglobin Sodium 136 L Potassium Chloride Carbon Dioxide Anion Gap BUN 26 H Creatinine 1.57 H BUN/Creatinine Ratio Glucose 159 H POC Glucose (mg/dL) 137 H Plasma Lactic Acid Hector Calcium 8.2 L Ionized Calcium Krystal Phosphorus Iron % Saturation AST Total Protein Albumin Albumin/Globulin Ratio Triglycerides Procalcitonin Urine Protein Triple Phos Crystals Amorphous Sediment Urine Mucus Crossmatch 11/13/23 11/13/23 11/14/23 17:30 23:35 04:04 WBC RBC Hgb Hct MCH MCHC RDW Plt Count Immature Gran # Neutrophils # Neutrophils # (Manual) Lymphocytes # Lymphocytes # (Manual) Eosinophils # Metamyelocytes # (Man) Myelocytes # (Manual) Nucleated RBCs NRBC/100 WBC Diff PT INR Fibrinogen ABG pH ABG pCO2 ABG pO2 ABG HCO3 ABG Total CO2 ABG O2 Saturation Hemoglobin Sodium 133 L Potassium Chloride Carbon Dioxide Anion Gap BUN 25 H Creatinine BUN/Creatinine Ratio Glucose 133 H POC Glucose (mg/dL) 128 H 130 H Plasma Lactic Acid Hector Calcium 8.2 L Ionized Calcium Krystal Phosphorus Iron 6 L % Saturation 1.64 L AST 15 L Total Protein 5.1 L Albumin 2.6 L Albumin/Globulin Ratio Triglycerides Procalcitonin Urine Protein Triple Phos Crystals Amorphous Sediment Urine Mucus Crossmatch 11/14/23 11/14/23 11/14/23 04:04 05:43 05:52 WBC 12.0 H RBC 2.54 L Hgb 6.9 L* Hct 22.2 L MCH MCHC RDW Plt Count Immature Gran # Neutrophils # 10.5 H Neutrophils # (Manual) Lymphocytes # 0.7 L Lymphocytes # (Manual) Eosinophils # Metamyelocytes # (Man) Myelocytes # (Manual) Nucleated RBCs NRBC/100 WBC Diff PT INR Fibrinogen ABG pH 7.32 L ABG pCO2 51 H ABG pO2 123 H ABG HCO3 26 H ABG Total CO2 28 H ABG O2 Saturation 99.4 H Hemoglobin 6.6 L* Sodium Potassium Chloride Carbon Dioxide Anion Gap BUN Creatinine BUN/Creatinine Ratio Glucose POC Glucose (mg/dL) Plasma Lactic Acid Hector Calcium Ionized Calcium Krystal Phosphorus Iron % Saturation AST Total Protein Albumin Albumin/Globulin Ratio Triglycerides Procalcitonin Urine Protein Triple Phos Crystals Amorphous Sediment Urine Mucus Crossmatch See Detail 11/14/23 11/14/23 11/14/23 06:10 14:41 14:50 WBC RBC 2.60 L Hgb 7.2 L Hct 22.5 L MCH MCHC RDW Plt Count Immature Gran # Neutrophils # Neutrophils # (Manual) Lymphocytes # Lymphocytes # (Manual) Eosinophils # Metamyelocytes # (Man) Myelocytes # (Manual) Nucleated RBCs NRBC/100 WBC Diff PT INR Fibrinogen ABG pH ABG pCO2 ABG pO2 ABG HCO3 ABG Total CO2 ABG O2 Saturation Hemoglobin Sodium Potassium Chloride Carbon Dioxide Anion Gap BUN Creatinine BUN/Creatinine Ratio Glucose POC Glucose (mg/dL) 157 H Plasma Lactic Acid Hector Calcium Ionized Calcium Krystal Phosphorus Iron % Saturation AST Total Protein Albumin Albumin/Globulin Ratio Triglycerides Procalcitonin Urine Protein Trace H Triple Phos Crystals Moderate H Amorphous Sediment Moderate H Urine Mucus Rare H Crossmatch 11/14/23 11/14/23 11/15/23 17:17 18:13 00:47 WBC RBC Hgb Hct MCH MCHC RDW Plt Count Immature Gran # Neutrophils # Neutrophils # (Manual) Lymphocytes # Lymphocytes # (Manual) Eosinophils # Metamyelocytes # (Man) Myelocytes # (Manual) Nucleated RBCs NRBC/100 WBC Diff PT INR Fibrinogen ABG pH ABG pCO2 ABG pO2 110 H ABG HCO3 26 H ABG Total CO2 27 H ABG O2 Saturation 99.0 H Hemoglobin 7.5 L Sodium Potassium Chloride Carbon Dioxide Anion Gap BUN Creatinine BUN/Creatinine Ratio Glucose POC Glucose (mg/dL) 148 H 124 H Plasma Lactic Acid Hector Calcium Ionized Calcium Krystal Phosphorus Iron % Saturation AST Total Protein Albumin Albumin/Globulin Ratio Triglycerides Procalcitonin Urine Protein Triple Phos Crystals Amorphous Sediment Urine Mucus Crossmatch 11/15/23 11/15/23 11/15/23 05:23 05:23 06:02 WBC 10.7 H RBC 2.79 L Hgb 7.5 L Hct 24.4 L MCH MCHC 30.6 L RDW Plt Count Immature Gran # Neutrophils # 9.1 H Neutrophils # (Manual) Lymphocytes # 0.9 L Lymphocytes # (Manual) Eosinophils # Metamyelocytes # (Man) Myelocytes # (Manual) Nucleated RBCs NRBC/100 WBC Diff PT INR Fibrinogen ABG pH ABG pCO2 ABG pO2 ABG HCO3 ABG Total CO2 ABG O2 Saturation Hemoglobin Sodium Potassium Chloride Carbon Dioxide Anion Gap BUN Creatinine BUN/Creatinine Ratio Glucose 126 H POC Glucose (mg/dL) 132 H Plasma Lactic Acid Hector Calcium Ionized Calcium Krystal Phosphorus Iron % Saturation AST Total Protein Albumin Albumin/Globulin Ratio Triglycerides Procalcitonin Urine Protein Triple Phos Crystals Amorphous Sediment Urine Mucus Crossmatch 11/15/23 11/15/23 11/15/23 11:24 18:36 23:46 WBC RBC Hgb Hct MCH MCHC RDW Plt Count Immature Gran # Neutrophils # Neutrophils # (Manual) Lymphocytes # Lymphocytes # (Manual) Eosinophils # Metamyelocytes # (Man) Myelocytes # (Manual) Nucleated RBCs NRBC/100 WBC Diff PT INR Fibrinogen ABG pH ABG pCO2 ABG pO2 ABG HCO3 ABG Total CO2 ABG O2 Saturation Hemoglobin Sodium Potassium Chloride Carbon Dioxide Anion Gap BUN Creatinine BUN/Creatinine Ratio Glucose POC Glucose (mg/dL) 135 H 122 H 111 H Plasma Lactic Acid Hector Calcium Ionized Calcium Krystal Phosphorus Iron % Saturation AST Total Protein Albumin Albumin/Globulin Ratio Triglycerides Procalcitonin Urine Protein Triple Phos Crystals Amorphous Sediment Urine Mucus Crossmatch 11/16/23 11/16/23 11/16/23 03:58 03:58 06:05 WBC 13.0 H RBC 2.90 L Hgb 7.7 L Hct 25.5 L MCH MCHC 30.1 L RDW Plt Count Immature Gran # Neutrophils # 11.1 H Neutrophils # (Manual) Lymphocytes # Lymphocytes # (Manual) Eosinophils # Metamyelocytes # (Man) Myelocytes # (Manual) Nucleated RBCs NRBC/100 WBC Diff PT INR Fibrinogen ABG pH ABG pCO2 ABG pO2 ABG HCO3 ABG Total CO2 ABG O2 Saturation Hemoglobin Sodium Potassium Chloride Carbon Dioxide Anion Gap BUN Creatinine BUN/Creatinine Ratio Glucose 107 H POC Glucose (mg/dL) 115 H Plasma Lactic Acid Hector Calcium Ionized Calcium Krystal Phosphorus Iron % Saturation AST Total Protein Albumin Albumin/Globulin Ratio Triglycerides Procalcitonin Urine Protein Triple Phos Crystals Amorphous Sediment Urine Mucus Crossmatch 11/16/23 11/16/23 11/17/23 14:30 23:42 05:33 WBC RBC Hgb Hct MCH MCHC RDW Plt Count Immature Gran # Neutrophils # Neutrophils # (Manual) Lymphocytes # Lymphocytes # (Manual) Eosinophils # Metamyelocytes # (Man) Myelocytes # (Manual) Nucleated RBCs NRBC/100 WBC Diff PT INR Fibrinogen ABG pH ABG pCO2 ABG pO2 ABG HCO3 ABG Total CO2 ABG O2 Saturation Hemoglobin Sodium Potassium Chloride Carbon Dioxide Anion Gap BUN Creatinine BUN/Creatinine Ratio Glucose POC Glucose (mg/dL) 152 H 169 H 185 H Plasma Lactic Acid Hector Calcium Ionized Calcium Krystal Phosphorus Iron % Saturation AST Total Protein Albumin Albumin/Globulin Ratio Triglycerides Procalcitonin Urine Protein Triple Phos Crystals Amorphous Sediment Urine Mucus Crossmatch 11/17/23 11/17/23 11/17/23 05:57 05:57 13:27 WBC RBC 2.96 L Hgb 7.9 L Hct 25.3 L MCH MCHC RDW Plt Count Immature Gran # Neutrophils # 7.8 H Neutrophils # (Manual) Lymphocytes # 0.8 L Lymphocytes # (Manual) Eosinophils # Metamyelocytes # (Man) Myelocytes # (Manual) Nucleated RBCs NRBC/100 WBC Diff PT INR Fibrinogen ABG pH ABG pCO2 ABG pO2 ABG HCO3 ABG Total CO2 ABG O2 Saturation Hemoglobin Sodium Potassium Chloride Carbon Dioxide Anion Gap BUN 26 H Creatinine BUN/Creatinine Ratio Glucose 173 H POC Glucose (mg/dL) 173 H Plasma Lactic Acid Hector Calcium 8.3 L Ionized Calcium Krystal Phosphorus Iron % Saturation AST Total Protein Albumin Albumin/Globulin Ratio Triglycerides Procalcitonin Urine Protein Triple Phos Crystals Amorphous Sediment Urine Mucus Crossmatch 11/17/23 11/17/23 11/18/23 18:16 20:16 06:39 WBC RBC Hgb Hct MCH MCHC RDW Plt Count Immature Gran # Neutrophils # Neutrophils # (Manual) Lymphocytes # Lymphocytes # (Manual) Eosinophils # Metamyelocytes # (Man) Myelocytes # (Manual) Nucleated RBCs NRBC/100 WBC Diff PT INR Fibrinogen ABG pH ABG pCO2 ABG pO2 ABG HCO3 ABG Total CO2 ABG O2 Saturation Hemoglobin Sodium Potassium Chloride Carbon Dioxide Anion Gap BUN Creatinine BUN/Creatinine Ratio Glucose POC Glucose (mg/dL) 165 H 151 H 177 H Plasma Lactic Acid Hector Calcium Ionized Calcium Krystal Phosphorus Iron % Saturation AST Total Protein Albumin Albumin/Globulin Ratio Triglycerides Procalcitonin Urine Protein Triple Phos Crystals Amorphous Sediment Urine Mucus Crossmatch 11/18/23 11/18/23 11/18/23 09:07 11:36 17:24 WBC RBC Hgb Hct MCH MCHC RDW Plt Count Immature Gran # Neutrophils # Neutrophils # (Manual) Lymphocytes # Lymphocytes # (Manual) Eosinophils # Metamyelocytes # (Man) Myelocytes # (Manual) Nucleated RBCs NRBC/100 WBC Diff PT INR Fibrinogen ABG pH ABG pCO2 ABG pO2 ABG HCO3 ABG Total CO2 ABG O2 Saturation Hemoglobin Sodium Potassium Chloride Carbon Dioxide Anion Gap BUN Creatinine BUN/Creatinine Ratio Glucose POC Glucose (mg/dL) 145 H 179 H Plasma Lactic Acid Hector Calcium Ionized Calcium Krystal Phosphorus Iron % Saturation AST Total Protein Albumin Albumin/Globulin Ratio Triglycerides Procalcitonin 0.96 H Urine Protein Triple Phos Crystals Amorphous Sediment Urine Mucus Crossmatch 11/18/23 11/19/23 11/19/23 19:57 06:31 12:24 WBC RBC Hgb Hct MCH MCHC RDW Plt Count Immature Gran # Neutrophils # Neutrophils # (Manual) Lymphocytes # Lymphocytes # (Manual) Eosinophils # Metamyelocytes # (Man) Myelocytes # (Manual) Nucleated RBCs NRBC/100 WBC Diff PT INR Fibrinogen ABG pH ABG pCO2 ABG pO2 ABG HCO3 ABG Total CO2 ABG O2 Saturation Hemoglobin Sodium Potassium Chloride Carbon Dioxide Anion Gap BUN Creatinine BUN/Creatinine Ratio Glucose POC Glucose (mg/dL) 171 H 161 H 181 H Plasma Lactic Acid Hector Calcium Ionized Calcium Krystal Phosphorus Iron % Saturation AST Total Protein Albumin Albumin/Globulin Ratio Triglycerides Procalcitonin Urine Protein Triple Phos Crystals Amorphous Sediment Urine Mucus Crossmatch 11/19/23 11/19/23 11/20/23 18:17 23:56 03:31 WBC 12.39 H RBC 3.44 L Hgb 9.0 L Hct 30.6 L MCH 26.2 L MCHC 29.4 L RDW 16.3 H Plt Count Immature Gran # 0.26 H Neutrophils # 10.31 H Neutrophils # (Manual) Lymphocytes # Lymphocytes # (Manual) Eosinophils # 0 L Metamyelocytes # (Man) Myelocytes # (Manual) Nucleated RBCs NRBC/100 WBC Diff 0.05 H PT INR Fibrinogen ABG pH ABG pCO2 ABG pO2 ABG HCO3 ABG Total CO2 ABG O2 Saturation Hemoglobin Sodium Potassium Chloride Carbon Dioxide Anion Gap BUN Creatinine BUN/Creatinine Ratio Glucose POC Glucose (mg/dL) 183 H 176 H Plasma Lactic Acid Hector Calcium Ionized Calcium Krystal Phosphorus Iron % Saturation AST Total Protein Albumin Albumin/Globulin Ratio Triglycerides Procalcitonin Urine Protein Triple Phos Crystals Amorphous Sediment Urine Mucus Crossmatch 11/20/23 11/20/23 11/20/23 03:31 05:54 08:13 WBC RBC Hgb Hct MCH MCHC RDW Plt Count Immature Gran # Neutrophils # Neutrophils # (Manual) Lymphocytes # Lymphocytes # (Manual) Eosinophils # Metamyelocytes # (Man) Myelocytes # (Manual) Nucleated RBCs NRBC/100 WBC Diff PT INR Fibrinogen ABG pH ABG pCO2 ABG pO2 ABG HCO3 ABG Total CO2 ABG O2 Saturation Hemoglobin Sodium Potassium Chloride Carbon Dioxide Anion Gap BUN 42 H Creatinine BUN/Creatinine Ratio Glucose POC Glucose (mg/dL) 176 H 168 H Plasma Lactic Acid Hector Calcium Ionized Calcium Krystal Phosphorus Iron % Saturation AST Total Protein Albumin Albumin/Globulin Ratio Triglycerides Procalcitonin Urine Protein Triple Phos Crystals Amorphous Sediment Urine Mucus Crossmatch 11/20/23 11/20/23 11/20/23 12:41 17:32 20:28 WBC RBC Hgb Hct MCH MCHC RDW Plt Count Immature Gran # Neutrophils # Neutrophils # (Manual) Lymphocytes # Lymphocytes # (Manual) Eosinophils # Metamyelocytes # (Man) Myelocytes # (Manual) Nucleated RBCs NRBC/100 WBC Diff PT INR Fibrinogen ABG pH ABG pCO2 ABG pO2 ABG HCO3 ABG Total CO2 ABG O2 Saturation Hemoglobin Sodium Potassium Chloride Carbon Dioxide Anion Gap BUN Creatinine BUN/Creatinine Ratio Glucose POC Glucose (mg/dL) 171 H 176 H 153 H Plasma Lactic Acid Hector Calcium Ionized Calcium Krystal Phosphorus Iron % Saturation AST Total Protein Albumin Albumin/Globulin Ratio Triglycerides Procalcitonin Urine Protein Triple Phos Crystals Amorphous Sediment Urine Mucus Crossmatch 11/21/23 11/21/23 11/21/23 02:56 02:56 07:07 WBC 14.43 H RBC 3.18 L Hgb 8.8 L Hct 28.7 L MCH MCHC 30.7 L RDW 17.0 H Plt Count Immature Gran # 0.15 H Neutrophils # 12.44 H Neutrophils # (Manual) Lymphocytes # Lymphocytes # (Manual) Eosinophils # 0 L Metamyelocytes # (Man) Myelocytes # (Manual) Nucleated RBCs NRBC/100 WBC Diff 0.02 H PT INR Fibrinogen ABG pH ABG pCO2 ABG pO2 ABG HCO3 ABG Total CO2 ABG O2 Saturation Hemoglobin Sodium Potassium Chloride Carbon Dioxide Anion Gap BUN 42 H Creatinine BUN/Creatinine Ratio Glucose 164 H POC Glucose (mg/dL) 158 H Plasma Lactic Acid Hector Calcium Ionized Calcium Krystal Phosphorus Iron % Saturation AST Total Protein Albumin Albumin/Globulin Ratio Triglycerides Procalcitonin Urine Protein Triple Phos Crystals Amorphous Sediment Urine Mucus Crossmatch 11/21/23 11/21/23 11/22/23 12:04 17:04 00:19 WBC RBC Hgb Hct MCH MCHC RDW Plt Count Immature Gran # Neutrophils # Neutrophils # (Manual) Lymphocytes # Lymphocytes # (Manual) Eosinophils # Metamyelocytes # (Man) Myelocytes # (Manual) Nucleated RBCs NRBC/100 WBC Diff PT INR Fibrinogen ABG pH ABG pCO2 ABG pO2 ABG HCO3 ABG Total CO2 ABG O2 Saturation Hemoglobin Sodium Potassium Chloride Carbon Dioxide Anion Gap BUN Creatinine BUN/Creatinine Ratio Glucose POC Glucose (mg/dL) 150 H 181 H 158 H Plasma Lactic Acid Hector Calcium Ionized Calcium Krystal Phosphorus Iron % Saturation AST Total Protein Albumin Albumin/Globulin Ratio Triglycerides Procalcitonin Urine Protein Triple Phos Crystals Amorphous Sediment Urine Mucus Crossmatch 11/22/23 11/22/23 11/22/23 07:16 11:51 17:05 WBC RBC Hgb Hct MCH MCHC RDW Plt Count Immature Gran # Neutrophils # Neutrophils # (Manual) Lymphocytes # Lymphocytes # (Manual) Eosinophils # Metamyelocytes # (Man) Myelocytes # (Manual) Nucleated RBCs NRBC/100 WBC Diff PT INR Fibrinogen ABG pH ABG pCO2 ABG pO2 ABG HCO3 ABG Total CO2 ABG O2 Saturation Hemoglobin Sodium Potassium Chloride Carbon Dioxide Anion Gap BUN Creatinine BUN/Creatinine Ratio Glucose POC Glucose (mg/dL) 161 H 138 H 158 H Plasma Lactic Acid Hector Calcium Ionized Calcium Krystal Phosphorus Iron % Saturation AST Total Protein Albumin Albumin/Globulin Ratio Triglycerides Procalcitonin Urine Protein Triple Phos Crystals Amorphous Sediment Urine Mucus Crossmatch 11/22/23 11/23/23 11/23/23 20:11 03:32 03:32 WBC 14.5 H RBC 3.55 L Hgb 9.7 L D Hct 31.4 L MCH MCHC RDW 18.7 H Plt Count Immature Gran # Neutrophils # 12.9 H Neutrophils # (Manual) Lymphocytes # Lymphocytes # (Manual) Eosinophils # Metamyelocytes # (Man) Myelocytes # (Manual) Nucleated RBCs NRBC/100 WBC Diff PT INR Fibrinogen ABG pH ABG pCO2 ABG pO2 ABG HCO3 ABG Total CO2 ABG O2 Saturation Hemoglobin Sodium Potassium Chloride Carbon Dioxide Anion Gap BUN 39 H Creatinine BUN/Creatinine Ratio Glucose 181 H POC Glucose (mg/dL) 142 H Plasma Lactic Acid Hector Calcium Ionized Calcium Krystal Phosphorus Iron % Saturation AST Total Protein Albumin Albumin/Globulin Ratio Triglycerides Procalcitonin Urine Protein Triple Phos Crystals Amorphous Sediment Urine Mucus Crossmatch 11/23/23 11/23/23 11/23/23 07:06 12:05 18:12 WBC RBC Hgb Hct MCH MCHC RDW Plt Count Immature Gran # Neutrophils # Neutrophils # (Manual) Lymphocytes # Lymphocytes # (Manual) Eosinophils # Metamyelocytes # (Man) Myelocytes # (Manual) Nucleated RBCs NRBC/100 WBC Diff PT INR Fibrinogen ABG pH ABG pCO2 ABG pO2 ABG HCO3 ABG Total CO2 ABG O2 Saturation Hemoglobin Sodium Potassium Chloride Carbon Dioxide Anion Gap BUN Creatinine BUN/Creatinine Ratio Glucose POC Glucose (mg/dL) 151 H 155 H 161 H Plasma Lactic Acid Hector Calcium Ionized Calcium Krystal Phosphorus Iron % Saturation AST Total Protein Albumin Albumin/Globulin Ratio Triglycerides Procalcitonin Urine Protein Triple Phos Crystals Amorphous Sediment Urine Mucus Crossmatch 11/24/23 11/24/23 11/24/23 00:13 03:40 03:40 WBC 14.07 H RBC 3.30 L Hgb 8.9 L Hct 29.5 L MCH MCHC 30.2 L RDW 18.8 H Plt Count Immature Gran # 0.10 H Neutrophils # 11.93 H Neutrophils # (Manual) Lymphocytes # Lymphocytes # (Manual) Eosinophils # 0 L Metamyelocytes # (Man) Myelocytes # (Manual) Nucleated RBCs NRBC/100 WBC Diff PT INR Fibrinogen ABG pH ABG pCO2 ABG pO2 ABG HCO3 ABG Total CO2 ABG O2 Saturation Hemoglobin Sodium Potassium Chloride Carbon Dioxide 21.5 L Anion Gap 13.50 H BUN 33.3 H Creatinine BUN/Creatinine Ratio 37.00 H Glucose 161 H POC Glucose (mg/dL) 158 H Plasma Lactic Acid Hector Calcium 8.3 L Ionized Calcium Krystal Phosphorus Iron % Saturation AST Total Protein 5.7 L Albumin 3.3 L Albumin/Globulin Ratio 1.38 L Triglycerides Procalcitonin Urine Protein Triple Phos Crystals Amorphous Sediment Urine Mucus Crossmatch 11/24/23 11/24/23 11/24/23 05:15 11:50 17:36 WBC RBC Hgb Hct MCH MCHC RDW Plt Count Immature Gran # Neutrophils # Neutrophils # (Manual) Lymphocytes # Lymphocytes # (Manual) Eosinophils # Metamyelocytes # (Man) Myelocytes # (Manual) Nucleated RBCs NRBC/100 WBC Diff PT INR Fibrinogen ABG pH ABG pCO2 ABG pO2 ABG HCO3 ABG Total CO2 ABG O2 Saturation Hemoglobin Sodium Potassium Chloride Carbon Dioxide Anion Gap BUN Creatinine BUN/Creatinine Ratio Glucose POC Glucose (mg/dL) 177 H 143 H 145 H Plasma Lactic Acid Hector Calcium Ionized Calcium Krystal Phosphorus Iron % Saturation AST Total Protein Albumin Albumin/Globulin Ratio Triglycerides Procalcitonin Urine Protein Triple Phos Crystals Amorphous Sediment Urine Mucus Crossmatch 11/25/23 11/25/23 11/25/23 00:12 05:32 05:32 WBC RBC Hgb 12.3 L Hct MCH MCHC RDW 19.8 H Plt Count Immature Gran # Neutrophils # Neutrophils # (Manual) Lymphocytes # Lymphocytes # (Manual) 0.82 L Eosinophils # Metamyelocytes # (Man) 0.25 H Myelocytes # (Manual) 0.08 H Nucleated RBCs NRBC/100 WBC Diff PT 13.8 H INR 1.3 H Fibrinogen ABG pH ABG pCO2 ABG pO2 ABG HCO3 ABG Total CO2 ABG O2 Saturation Hemoglobin Sodium Potassium Chloride Carbon Dioxide Anion Gap BUN Creatinine BUN/Creatinine Ratio Glucose POC Glucose (mg/dL) 158 H Plasma Lactic Acid Hector Calcium Ionized Calcium Krystal Phosphorus Iron % Saturation AST Total Protein Albumin Albumin/Globulin Ratio Triglycerides Procalcitonin Urine Protein Triple Phos Crystals Amorphous Sediment Urine Mucus Crossmatch 11/25/23 11/25/23 11/25/23 05:32 06:26 15:18 WBC RBC Hgb Hct MCH MCHC RDW Plt Count Immature Gran # Neutrophils # Neutrophils # (Manual) Lymphocytes # Lymphocytes # (Manual) Eosinophils # Metamyelocytes # (Man) Myelocytes # (Manual) Nucleated RBCs NRBC/100 WBC Diff PT INR Fibrinogen ABG pH 7.06 L* ABG pCO2 64 H ABG pO2 118 H ABG HCO3 18 L ABG Total CO2 ABG O2 Saturation Hemoglobin 11.0 L Sodium Potassium Chloride 114 H Carbon Dioxide 14 L Anion Gap BUN 57 H Creatinine 2.52 H BUN/Creatinine Ratio Glucose 150 H POC Glucose (mg/dL) 139 H Plasma Lactic Acid Hector Calcium 7.8 L Ionized Calcium Krystal Phosphorus Iron % Saturation AST Total Protein Albumin Albumin/Globulin Ratio Triglycerides Procalcitonin Urine Protein Triple Phos Crystals Amorphous Sediment Urine Mucus Crossmatch 11/25/23 11/25/23 11/25/23 16:34 16:34 16:34 WBC RBC 3.91 L Hgb 10.7 L Hct 36.0 L MCH MCHC 29.6 L RDW 19.2 H Plt Count Immature Gran # Neutrophils # Neutrophils # (Manual) Lymphocytes # Lymphocytes # (Manual) Eosinophils # Metamyelocytes # (Man) Myelocytes # (Manual) Nucleated RBCs NRBC/100 WBC Diff PT INR Fibrinogen ABG pH ABG pCO2 ABG pO2 ABG HCO3 ABG Total CO2 ABG O2 Saturation Hemoglobin Sodium 146 H Potassium Chloride 116 H Carbon Dioxide 19 L Anion Gap BUN 61 H Creatinine 2.89 H BUN/Creatinine Ratio Glucose 153 H POC Glucose (mg/dL) Plasma Lactic Acid Hector 3.2 H* Calcium 7.2 L Ionized Calcium Krystal Phosphorus Iron % Saturation AST Total Protein 4.6 L Albumin 2.3 L Albumin/Globulin Ratio Triglycerides Procalcitonin Urine Protein Triple Phos Crystals Amorphous Sediment Urine Mucus Crossmatch 11/25/23 11/25/23 11/25/23 16:40 18:15 20:18 WBC RBC 3.80 L Hgb 10.6 L Hct 34.5 L MCH MCHC 30.9 L RDW 19.7 H Plt Count Immature Gran # Neutrophils # Neutrophils # (Manual) Lymphocytes # Lymphocytes # (Manual) 0.97 L Eosinophils # Metamyelocytes # (Man) 0.56 H Myelocytes # (Manual) 0.36 H Nucleated RBCs NRBC/100 WBC Diff PT INR Fibrinogen ABG pH 7.23 L ABG pCO2 47 H ABG pO2 ABG HCO3 20 L ABG Total CO2 ABG O2 Saturation Hemoglobin 10.5 L Sodium Potassium Chloride Carbon Dioxide Anion Gap BUN Creatinine BUN/Creatinine Ratio Glucose POC Glucose (mg/dL) 192 H Plasma Lactic Acid Hector Calcium Ionized Calcium Krystal Phosphorus Iron % Saturation AST Total Protein Albumin Albumin/Globulin Ratio Triglycerides Procalcitonin Urine Protein Triple Phos Crystals Amorphous Sediment Urine Mucus Crossmatch 11/25/23 11/25/23 11/26/23 20:27 20:27 00:07 WBC RBC Hgb Hct MCH MCHC RDW Plt Count Immature Gran # Neutrophils # Neutrophils # (Manual) Lymphocytes # Lymphocytes # (Manual) Eosinophils # Metamyelocytes # (Man) Myelocytes # (Manual) Nucleated RBCs NRBC/100 WBC Diff PT INR Fibrinogen ABG pH ABG pCO2 ABG pO2 ABG HCO3 ABG Total CO2 ABG O2 Saturation Hemoglobin Sodium Potassium Chloride 114 H Carbon Dioxide 20 L Anion Gap BUN 67 H Creatinine 2.71 H BUN/Creatinine Ratio Glucose 179 H POC Glucose (mg/dL) Plasma Lactic Acid Hector 3.7 H* 2.9 H* Calcium 6.7 L Ionized Calcium Krystal Phosphorus Iron % Saturation AST Total Protein Albumin Albumin/Globulin Ratio Triglycerides Procalcitonin Urine Protein Triple Phos Crystals Amorphous Sediment Urine Mucus Crossmatch 11/26/23 11/26/23 11/26/23 00:10 04:22 04:22 WBC RBC 3.62 L Hgb 9.9 L Hct 33.1 L MCH MCHC 30.1 L RDW 19.2 H Plt Count Immature Gran # Neutrophils # Neutrophils # (Manual) Lymphocytes # Lymphocytes # (Manual) 0.34 L Eosinophils # Metamyelocytes # (Man) 0.23 H Myelocytes # (Manual) 0.06 H Nucleated RBCs NRBC/100 WBC Diff PT INR Fibrinogen ABG pH ABG pCO2 ABG pO2 ABG HCO3 ABG Total CO2 ABG O2 Saturation Hemoglobin Sodium Potassium Chloride 112 H Carbon Dioxide Anion Gap BUN 72 H Creatinine 2.85 H BUN/Creatinine Ratio Glucose 205 H POC Glucose (mg/dL) 204 H Plasma Lactic Acid Hector Calcium 6.5 L Ionized Calcium Krystal 3.8 L Phosphorus Iron % Saturation AST Total Protein 4.3 L Albumin 2.1 L Albumin/Globulin Ratio Triglycerides 315.00 H Procalcitonin Urine Protein Triple Phos Crystals Amorphous Sediment Urine Mucus Crossmatch 11/26/23 11/26/23 11/26/23 04:52 07:58 12:05 WBC RBC Hgb Hct MCH MCHC RDW Plt Count Immature Gran # Neutrophils # Neutrophils # (Manual) Lymphocytes # Lymphocytes # (Manual) Eosinophils # Metamyelocytes # (Man) Myelocytes # (Manual) Nucleated RBCs NRBC/100 WBC Diff PT INR Fibrinogen ABG pH ABG pCO2 ABG pO2 ABG HCO3 ABG Total CO2 25 H ABG O2 Saturation Hemoglobin 10.3 L Sodium Potassium Chloride Carbon Dioxide Anion Gap BUN Creatinine BUN/Creatinine Ratio Glucose POC Glucose (mg/dL) 271 H 208 H Plasma Lactic Acid Hector Calcium Ionized Calcium Krystal Phosphorus Iron % Saturation AST Total Protein Albumin Albumin/Globulin Ratio Triglycerides Procalcitonin Urine Protein Triple Phos Crystals Amorphous Sediment Urine Mucus Crossmatch 11/26/23 11/26/23 11/27/23 17:10 23:50 04:26 WBC RBC Hgb Hct MCH MCHC RDW Plt Count Immature Gran # Neutrophils # Neutrophils # (Manual) Lymphocytes # Lymphocytes # (Manual) Eosinophils # Metamyelocytes # (Man) Myelocytes # (Manual) Nucleated RBCs NRBC/100 WBC Diff PT INR Fibrinogen ABG pH ABG pCO2 ABG pO2 ABG HCO3 ABG Total CO2 ABG O2 Saturation Hemoglobin Sodium Potassium 5.5 H Chloride 111 H Carbon Dioxide 19 L Anion Gap BUN 83 H Creatinine 3.71 H BUN/Creatinine Ratio Glucose 280 H POC Glucose (mg/dL) 261 H 294 H Plasma Lactic Acid Hector Calcium 6.1 L* Ionized Calcium Krystal Phosphorus 5.1 H Iron % Saturation AST 77 H Total Protein 4.7 L Albumin 2.1 L Albumin/Globulin Ratio Triglycerides Procalcitonin Urine Protein Triple Phos Crystals Amorphous Sediment Urine Mucus Crossmatch 11/27/23 11/27/23 11/27/23 04:26 05:05 11:32 WBC 13.0 H RBC 3.33 L Hgb 9.4 L Hct 30.6 L MCH MCHC 30.8 L RDW 19.4 H Plt Count Immature Gran # Neutrophils # Neutrophils # (Manual) 12.00 H Lymphocytes # Lymphocytes # (Manual) 0.26 L Eosinophils # Metamyelocytes # (Man) 0.13 H Myelocytes # (Manual) Nucleated RBCs 1 H NRBC/100 WBC Diff PT INR Fibrinogen ABG pH 7.29 L ABG pCO2 ABG pO2 78 L ABG HCO3 20 L ABG Total CO2 ABG O2 Saturation Hemoglobin 9.3 L Sodium Potassium Chloride Carbon Dioxide Anion Gap BUN Creatinine BUN/Creatinine Ratio Glucose POC Glucose (mg/dL) 289 H Plasma Lactic Acid Hector Calcium Ionized Calcium Krystal Phosphorus Iron % Saturation AST Total Protein Albumin Albumin/Globulin Ratio Triglycerides Procalcitonin Urine Protein Triple Phos Crystals Amorphous Sediment Urine Mucus Crossmatch 11/27/23 11/27/23 11/27/23 16:45 18:30 23:58 WBC RBC Hgb Hct MCH MCHC RDW Plt Count Immature Gran # Neutrophils # Neutrophils # (Manual) Lymphocytes # Lymphocytes # (Manual) Eosinophils # Metamyelocytes # (Man) Myelocytes # (Manual) Nucleated RBCs NRBC/100 WBC Diff PT INR Fibrinogen ABG pH ABG pCO2 ABG pO2 ABG HCO3 ABG Total CO2 ABG O2 Saturation Hemoglobin Sodium Potassium Chloride 113 H Carbon Dioxide 18 L Anion Gap BUN 89 H Creatinine 4.26 H BUN/Creatinine Ratio Glucose 268 H POC Glucose (mg/dL) 306 H 282 H Plasma Lactic Acid Hector Calcium 6.5 L Ionized Calcium Krystal Phosphorus Iron % Saturation AST Total Protein Albumin Albumin/Globulin Ratio Triglycerides Procalcitonin Urine Protein Triple Phos Crystals Amorphous Sediment Urine Mucus Crossmatch 11/28/23 11/28/23 11/28/23 04:49 04:49 04:49 WBC 11.2 H RBC 2.82 L Hgb 7.9 L D Hct 25.6 L MCH MCHC RDW 19.7 H Plt Count 46 L D Immature Gran # Neutrophils # Neutrophils # (Manual) Lymphocytes # Lymphocytes # (Manual) Eosinophils # Metamyelocytes # (Man) Myelocytes # (Manual) Nucleated RBCs NRBC/100 WBC Diff PT INR Fibrinogen ABG pH ABG pCO2 ABG pO2 ABG HCO3 ABG Total CO2 ABG O2 Saturation Hemoglobin Sodium Potassium Chloride 114 H Carbon Dioxide 18 L Anion Gap BUN 93 H Creatinine 4.81 H BUN/Creatinine Ratio Glucose 238 H POC Glucose (mg/dL) Plasma Lactic Acid Hector Calcium 6.9 L Ionized Calcium Krystal Phosphorus Iron % Saturation AST Total Protein Albumin Albumin/Globulin Ratio Triglycerides 380.00 H Procalcitonin Urine Protein Triple Phos Crystals Amorphous Sediment Urine Mucus Crossmatch 11/28/23 11/28/23 11/28/23 04:56 11:31 15:40 WBC RBC Hgb Hct MCH MCHC RDW Plt Count Immature Gran # Neutrophils # Neutrophils # (Manual) Lymphocytes # Lymphocytes # (Manual) Eosinophils # Metamyelocytes # (Man) Myelocytes # (Manual) Nucleated RBCs NRBC/100 WBC Diff PT 9.7 L INR Fibrinogen 712 H ABG pH 7.32 L ABG pCO2 ABG pO2 ABG HCO3 20 L ABG Total CO2 ABG O2 Saturation 97.2 H Hemoglobin 7.8 L Sodium Potassium Chloride Carbon Dioxide Anion Gap BUN Creatinine BUN/Creatinine Ratio Glucose POC Glucose (mg/dL) 307 H Plasma Lactic Acid Hector Calcium Ionized Calcium Krystal Phosphorus Iron % Saturation AST Total Protein Albumin Albumin/Globulin Ratio Triglycerides Procalcitonin Urine Protein Triple Phos Crystals Amorphous Sediment Urine Mucus Crossmatch 11/28/23 11/28/23 11/29/23 17:19 23:40 04:02 WBC RBC 2.57 L Hgb 7.0 L Hct 23.3 L MCH MCHC 30.0 L RDW 19.6 H Plt Count 32 L Immature Gran # Neutrophils # Neutrophils # (Manual) Lymphocytes # Lymphocytes # (Manual) Eosinophils # Metamyelocytes # (Man) Myelocytes # (Manual) Nucleated RBCs NRBC/100 WBC Diff PT INR Fibrinogen ABG pH ABG pCO2 ABG pO2 ABG HCO3 ABG Total CO2 ABG O2 Saturation Hemoglobin Sodium Potassium Chloride Carbon Dioxide Anion Gap BUN Creatinine BUN/Creatinine Ratio Glucose POC Glucose (mg/dL) 354 H 314 H Plasma Lactic Acid Hector Calcium Ionized Calcium Krystal Phosphorus Iron % Saturation AST Total Protein Albumin Albumin/Globulin Ratio Triglycerides Procalcitonin Urine Protein Triple Phos Crystals Amorphous Sediment Urine Mucus Crossmatch 11/29/23 11/29/23 11/29/23 04:02 05:53 11:47 WBC RBC Hgb Hct MCH MCHC RDW Plt Count Immature Gran # Neutrophils # Neutrophils # (Manual) Lymphocytes # Lymphocytes # (Manual) Eosinophils # Metamyelocytes # (Man) Myelocytes # (Manual) Nucleated RBCs NRBC/100 WBC Diff PT INR Fibrinogen ABG pH ABG pCO2 ABG pO2 ABG HCO3 ABG Total CO2 ABG O2 Saturation Hemoglobin Sodium Potassium Chloride 113 H Carbon Dioxide 18 L Anion Gap BUN 106 H* Creatinine 5.38 H BUN/Creatinine Ratio Glucose 263 H POC Glucose (mg/dL) 312 H 308 H Plasma Lactic Acid Hector Calcium 6.9 L Ionized Calcium Krystal Phosphorus 5.0 H Iron % Saturation AST Total Protein 4.2 L Albumin 1.9 L Albumin/Globulin Ratio Triglycerides Procalcitonin Urine Protein Triple Phos Crystals Amorphous Sediment Urine Mucus Crossmatch 11/29/23 11/29/23 11/30/23 15:35 17:50 01:32 WBC RBC Hgb Hct MCH MCHC RDW Plt Count Immature Gran # Neutrophils # Neutrophils # (Manual) Lymphocytes # Lymphocytes # (Manual) Eosinophils # Metamyelocytes # (Man) Myelocytes # (Manual) Nucleated RBCs NRBC/100 WBC Diff PT INR Fibrinogen ABG pH ABG pCO2 ABG pO2 ABG HCO3 ABG Total CO2 ABG O2 Saturation Hemoglobin Sodium Potassium Chloride Carbon Dioxide Anion Gap BUN Creatinine BUN/Creatinine Ratio Glucose POC Glucose (mg/dL) 278 H 276 H Plasma Lactic Acid Hector Calcium Ionized Calcium Krystal Phosphorus Iron % Saturation AST Total Protein Albumin Albumin/Globulin Ratio Triglycerides Procalcitonin Urine Protein Triple Phos Crystals Amorphous Sediment Urine Mucus Crossmatch See Detail 11/30/23 11/30/23 11/30/23 05:06 05:13 05:13 WBC 10.8 H RBC 2.75 L Hgb 8.1 L Hct 24.2 L MCH MCHC RDW 19.8 H Plt Count 41 L Immature Gran # Neutrophils # Neutrophils # (Manual) Lymphocytes # Lymphocytes # (Manual) Eosinophils # Metamyelocytes # (Man) Myelocytes # (Manual) Nucleated RBCs NRBC/100 WBC Diff PT INR Fibrinogen ABG pH ABG pCO2 ABG pO2 ABG HCO3 ABG Total CO2 ABG O2 Saturation 97.5 H Hemoglobin 8.2 L Sodium 133 L Potassium Chloride Carbon Dioxide 21 L Anion Gap BUN 93 H Creatinine 3.61 H BUN/Creatinine Ratio Glucose 273 H POC Glucose (mg/dL) Plasma Lactic Acid Hector Calcium 7.0 L Ionized Calcium Krystal Phosphorus Iron % Saturation AST Total Protein 4.7 L Albumin 2.1 L Albumin/Globulin Ratio Triglycerides Procalcitonin Urine Protein Triple Phos Crystals Amorphous Sediment Urine Mucus Crossmatch 11/30/23 11/30/23 11/30/23 05:13 06:47 12:02 WBC RBC Hgb Hct MCH MCHC RDW Plt Count Immature Gran # Neutrophils # Neutrophils # (Manual) Lymphocytes # Lymphocytes # (Manual) Eosinophils # Metamyelocytes # (Man) Myelocytes # (Manual) Nucleated RBCs NRBC/100 WBC Diff PT INR Fibrinogen ABG pH ABG pCO2 ABG pO2 ABG HCO3 ABG Total CO2 ABG O2 Saturation Hemoglobin Sodium Potassium Chloride Carbon Dioxide Anion Gap BUN Creatinine BUN/Creatinine Ratio Glucose POC Glucose (mg/dL) 315 H 195 H Plasma Lactic Acid Hector Calcium Ionized Calcium Krystal 4.0 L Phosphorus Iron % Saturation AST Total Protein Albumin Albumin/Globulin Ratio Triglycerides Procalcitonin Urine Protein Triple Phos Crystals Amorphous Sediment Urine Mucus Crossmatch 11/30/23 11/30/23 12/01/23 19:18 23:47 05:04 WBC RBC Hgb Hct MCH MCHC RDW Plt Count Immature Gran # Neutrophils # Neutrophils # (Manual) Lymphocytes # Lymphocytes # (Manual) Eosinophils # Metamyelocytes # (Man) Myelocytes # (Manual) Nucleated RBCs NRBC/100 WBC Diff PT INR Fibrinogen ABG pH 7.49 H ABG pCO2 34 L ABG pO2 121 H ABG HCO3 26 H ABG Total CO2 27 H ABG O2 Saturation 99.7 H Hemoglobin 8.3 L Sodium Potassium Chloride Carbon Dioxide Anion Gap BUN Creatinine BUN/Creatinine Ratio Glucose POC Glucose (mg/dL) 177 H 216 H Plasma Lactic Acid Hector Calcium Ionized Calcium Krystal Phosphorus Iron % Saturation AST Total Protein Albumin Albumin/Globulin Ratio Triglycerides Procalcitonin Urine Protein Triple Phos Crystals Amorphous Sediment Urine Mucus Crossmatch 12/01/23 12/01/23 12/01/23 05:10 05:10 06:16 WBC 11.4 H RBC 2.93 L Hgb 8.1 L Hct 25.5 L MCH MCHC RDW 19.6 H Plt Count 46 L Immature Gran # Neutrophils # Neutrophils # (Manual) Lymphocytes # Lymphocytes # (Manual) Eosinophils # Metamyelocytes # (Man) Myelocytes # (Manual) Nucleated RBCs NRBC/100 WBC Diff PT INR Fibrinogen ABG pH ABG pCO2 ABG pO2 ABG HCO3 ABG Total CO2 ABG O2 Saturation Hemoglobin Sodium 131 L Potassium Chloride Carbon Dioxide Anion Gap BUN 84 H Creatinine 3.61 H BUN/Creatinine Ratio Glucose 228 H POC Glucose (mg/dL) 272 H Plasma Lactic Acid Hector Calcium 7.1 L Ionized Calcium Krystal Phosphorus Iron % Saturation AST Total Protein 4.4 L Albumin 1.9 L Albumin/Globulin Ratio Triglycerides Procalcitonin Urine Protein Triple Phos Crystals Amorphous Sediment Urine Mucus Crossmatch 12/01/23 12/01/23 12/02/23 11:48 17:38 00:34 WBC RBC Hgb Hct MCH MCHC RDW Plt Count Immature Gran # Neutrophils # Neutrophils # (Manual) Lymphocytes # Lymphocytes # (Manual) Eosinophils # Metamyelocytes # (Man) Myelocytes # (Manual) Nucleated RBCs NRBC/100 WBC Diff PT INR Fibrinogen ABG pH ABG pCO2 ABG pO2 ABG HCO3 ABG Total CO2 ABG O2 Saturation Hemoglobin Sodium Potassium Chloride Carbon Dioxide Anion Gap BUN Creatinine BUN/Creatinine Ratio Glucose POC Glucose (mg/dL) 246 H 194 H 226 H Plasma Lactic Acid Hector Calcium Ionized Calcium Krystal Phosphorus Iron % Saturation AST Total Protein Albumin Albumin/Globulin Ratio Triglycerides Procalcitonin Urine Protein Triple Phos Crystals Amorphous Sediment Urine Mucus Crossmatch 12/02/23 12/02/23 12/02/23 05:14 05:14 05:30 WBC RBC 3.02 L Hgb 8.6 L Hct 26.0 L MCH MCHC RDW 19.7 H Plt Count 74 L D Immature Gran # Neutrophils # 9.4 H Neutrophils # (Manual) Lymphocytes # 0.5 L Lymphocytes # (Manual) Eosinophils # Metamyelocytes # (Man) Myelocytes # (Manual) Nucleated RBCs NRBC/100 WBC Diff PT INR Fibrinogen ABG pH ABG pCO2 ABG pO2 111 H ABG HCO3 ABG Total CO2 27 H ABG O2 Saturation 99.1 H Hemoglobin Sodium 131 L Potassium Chloride Carbon Dioxide Anion Gap BUN 111 H* Creatinine 4.02 H BUN/Creatinine Ratio Glucose 248 H POC Glucose (mg/dL) Plasma Lactic Acid Hector Calcium 7.3 L Ionized Calcium Krystal Phosphorus 5.1 H Iron % Saturation AST Total Protein 4.4 L Albumin 1.9 L Albumin/Globulin Ratio Triglycerides Procalcitonin Urine Protein Triple Phos Crystals Amorphous Sediment Urine Mucus Crossmatch 12/02/23 12/02/23 12/02/23 06:04 11:48 18:15 WBC RBC Hgb Hct MCH MCHC RDW Plt Count Immature Gran # Neutrophils # Neutrophils # (Manual) Lymphocytes # Lymphocytes # (Manual) Eosinophils # Metamyelocytes # (Man) Myelocytes # (Manual) Nucleated RBCs NRBC/100 WBC Diff PT INR Fibrinogen ABG pH ABG pCO2 ABG pO2 ABG HCO3 ABG Total CO2 ABG O2 Saturation Hemoglobin Sodium Potassium Chloride Carbon Dioxide Anion Gap BUN Creatinine BUN/Creatinine Ratio Glucose POC Glucose (mg/dL) 280 H 230 H 157 H Plasma Lactic Acid Hector Calcium Ionized Calcium Krystal Phosphorus Iron % Saturation AST Total Protein Albumin Albumin/Globulin Ratio Triglycerides Procalcitonin Urine Protein Triple Phos Crystals Amorphous Sediment Urine Mucus Crossmatch 12/02/23 12/03/23 12/03/23 23:31 05:04 05:04 WBC RBC 2.94 L Hgb 8.2 L Hct 25.2 L MCH MCHC RDW 20.0 H Plt Count 65 L Immature Gran # Neutrophils # 7.8 H Neutrophils # (Manual) Lymphocytes # 0.3 L Lymphocytes # (Manual) Eosinophils # Metamyelocytes # (Man) Myelocytes # (Manual) Nucleated RBCs NRBC/100 WBC Diff PT INR Fibrinogen ABG pH ABG pCO2 ABG pO2 ABG HCO3 ABG Total CO2 ABG O2 Saturation Hemoglobin Sodium 130 L Potassium Chloride Carbon Dioxide Anion Gap BUN 89 H Creatinine 3.45 H BUN/Creatinine Ratio Glucose 242 H POC Glucose (mg/dL) 194 H Plasma Lactic Acid Hector Calcium 7.2 L Ionized Calcium Krystal Phosphorus 4.7 H Iron % Saturation AST Total Protein Albumin Albumin/Globulin Ratio Triglycerides Procalcitonin Urine Protein Triple Phos Crystals Amorphous Sediment Urine Mucus Crossmatch 12/03/23 12/03/23 12/03/23 06:00 12:04 17:38 WBC RBC Hgb Hct MCH MCHC RDW Plt Count Immature Gran # Neutrophils # Neutrophils # (Manual) Lymphocytes # Lymphocytes # (Manual) Eosinophils # Metamyelocytes # (Man) Myelocytes # (Manual) Nucleated RBCs NRBC/100 WBC Diff PT INR Fibrinogen ABG pH ABG pCO2 ABG pO2 ABG HCO3 26 H ABG Total CO2 27 H ABG O2 Saturation 98.7 H Hemoglobin Sodium Potassium Chloride Carbon Dioxide Anion Gap BUN Creatinine BUN/Creatinine Ratio Glucose POC Glucose (mg/dL) 204 H 177 H Plasma Lactic Acid Hector Calcium Ionized Calcium Krystal Phosphorus Iron % Saturation AST Total Protein Albumin Albumin/Globulin Ratio Triglycerides Procalcitonin Urine Protein Triple Phos Crystals Amorphous Sediment Urine Mucus Crossmatch 12/03/23 12/04/23 12/04/23 23:38 04:10 04:10 WBC RBC 2.84 L Hgb 7.7 L Hct 24.6 L MCH MCHC RDW 19.7 H Plt Count 75 L Immature Gran # Neutrophils # Neutrophils # (Manual) Lymphocytes # 0.5 L Lymphocytes # (Manual) Eosinophils # Metamyelocytes # (Man) Myelocytes # (Manual) Nucleated RBCs NRBC/100 WBC Diff PT INR Fibrinogen ABG pH ABG pCO2 ABG pO2 ABG HCO3 ABG Total CO2 ABG O2 Saturation Hemoglobin Sodium 132 L Potassium Chloride 97 L Carbon Dioxide Anion Gap BUN 77 H Creatinine 3.32 H BUN/Creatinine Ratio Glucose 237 H POC Glucose (mg/dL) 204 H Plasma Lactic Acid Hector Calcium 7.2 L Ionized Calcium Krystal Phosphorus 4.7 H Iron % Saturation AST Total Protein Albumin Albumin/Globulin Ratio Triglycerides Procalcitonin Urine Protein Triple Phos Crystals Amorphous Sediment Urine Mucus Crossmatch 12/04/23 12/04/23 12/04/23 04:58 05:58 11:40 WBC RBC Hgb Hct MCH MCHC RDW Plt Count Immature Gran # Neutrophils # Neutrophils # (Manual) Lymphocytes # Lymphocytes # (Manual) Eosinophils # Metamyelocytes # (Man) Myelocytes # (Manual) Nucleated RBCs NRBC/100 WBC Diff PT INR Fibrinogen ABG pH ABG pCO2 ABG pO2 112 H ABG HCO3 26 H ABG Total CO2 28 H ABG O2 Saturation 99.5 H Hemoglobin Sodium Potassium Chloride Carbon Dioxide Anion Gap BUN Creatinine BUN/Creatinine Ratio Glucose POC Glucose (mg/dL) 248 H 189 H Plasma Lactic Acid Hector Calcium Ionized Calcium Krystal Phosphorus Iron % Saturation AST Total Protein Albumin Albumin/Globulin Ratio Triglycerides Procalcitonin Urine Protein Triple Phos Crystals Amorphous Sediment Urine Mucus Crossmatch 12/04/23 12/05/23 12/05/23 17:56 00:01 04:15 WBC RBC Hgb Hct MCH MCHC RDW Plt Count Immature Gran # Neutrophils # Neutrophils # (Manual) Lymphocytes # Lymphocytes # (Manual) Eosinophils # Metamyelocytes # (Man) Myelocytes # (Manual) Nucleated RBCs NRBC/100 WBC Diff PT INR Fibrinogen ABG pH ABG pCO2 ABG pO2 ABG HCO3 ABG Total CO2 ABG O2 Saturation Hemoglobin Sodium 130 L Potassium Chloride Carbon Dioxide Anion Gap BUN 70 H Creatinine 2.89 H BUN/Creatinine Ratio Glucose 209 H POC Glucose (mg/dL) 164 H 210 H Plasma Lactic Acid Hector Calcium 7.3 L Ionized Calcium Krystal 4.3 L Phosphorus Iron % Saturation AST Total Protein Albumin Albumin/Globulin Ratio Triglycerides Procalcitonin Urine Protein Triple Phos Crystals Amorphous Sediment Urine Mucus Crossmatch 12/05/23 12/05/23 12/05/23 04:15 05:06 05:11 WBC RBC 2.92 L Hgb 8.0 L Hct 25.0 L MCH MCHC RDW 19.7 H Plt Count 90 L Immature Gran # Neutrophils # 9.0 H Neutrophils # (Manual) Lymphocytes # 0.7 L Lymphocytes # (Manual) Eosinophils # Metamyelocytes # (Man) Myelocytes # (Manual) Nucleated RBCs NRBC/100 WBC Diff PT INR Fibrinogen ABG pH 7.48 H ABG pCO2 ABG pO2 ABG HCO3 27 H ABG Total CO2 29 H ABG O2 Saturation 98.1 H Hemoglobin Sodium Potassium Chloride Carbon Dioxide Anion Gap BUN Creatinine BUN/Creatinine Ratio Glucose POC Glucose (mg/dL) 212 H Plasma Lactic Acid Hector Calcium Ionized Calcium Krystal Phosphorus Iron % Saturation AST Total Protein Albumin Albumin/Globulin Ratio Triglycerides Procalcitonin Urine Protein Triple Phos Crystals Amorphous Sediment Urine Mucus Crossmatch 12/05/23 12/05/23 12/05/23 12:15 18:42 23:32 WBC RBC Hgb Hct MCH MCHC RDW Plt Count Immature Gran # Neutrophils # Neutrophils # (Manual) Lymphocytes # Lymphocytes # (Manual) Eosinophils # Metamyelocytes # (Man) Myelocytes # (Manual) Nucleated RBCs NRBC/100 WBC Diff PT INR Fibrinogen ABG pH ABG pCO2 ABG pO2 ABG HCO3 ABG Total CO2 ABG O2 Saturation Hemoglobin Sodium Potassium Chloride Carbon Dioxide Anion Gap BUN Creatinine BUN/Creatinine Ratio Glucose POC Glucose (mg/dL) 186 H 191 H 225 H Plasma Lactic Acid Hector Calcium Ionized Calcium Krystal Phosphorus Iron % Saturation AST Total Protein Albumin Albumin/Globulin Ratio Triglycerides Procalcitonin Urine Protein Triple Phos Crystals Amorphous Sediment Urine Mucus Crossmatch 12/06/23 12/06/23 12/06/23 04:20 04:20 05:10 WBC 11.8 H RBC 2.95 L Hgb 7.9 L Hct 25.4 L MCH MCHC RDW 20.0 H Plt Count 107 L Immature Gran # Neutrophils # 10.5 H Neutrophils # (Manual) Lymphocytes # 0.8 L Lymphocytes # (Manual) Eosinophils # Metamyelocytes # (Man) Myelocytes # (Manual) Nucleated RBCs NRBC/100 WBC Diff PT INR Fibrinogen ABG pH 7.47 H ABG pCO2 ABG pO2 ABG HCO3 26 H ABG Total CO2 27 H ABG O2 Saturation 98.7 H Hemoglobin 8.3 L Sodium 130 L Potassium Chloride Carbon Dioxide Anion Gap BUN 92 H Creatinine 3.74 H BUN/Creatinine Ratio Glucose 260 H POC Glucose (mg/dL) Plasma Lactic Acid Hector Calcium 7.3 L Ionized Calcium Krystal Phosphorus 4.6 H Iron % Saturation AST Total Protein Albumin Albumin/Globulin Ratio Triglycerides Procalcitonin Urine Protein Triple Phos Crystals Amorphous Sediment Urine Mucus Crossmatch 12/06/23 12/06/23 12/06/23 06:13 14:00 18:00 WBC RBC Hgb Hct MCH MCHC RDW Plt Count Immature Gran # Neutrophils # Neutrophils # (Manual) Lymphocytes # Lymphocytes # (Manual) Eosinophils # Metamyelocytes # (Man) Myelocytes # (Manual) Nucleated RBCs NRBC/100 WBC Diff PT INR Fibrinogen ABG pH ABG pCO2 ABG pO2 ABG HCO3 ABG Total CO2 ABG O2 Saturation Hemoglobin Sodium Potassium Chloride Carbon Dioxide Anion Gap BUN Creatinine BUN/Creatinine Ratio Glucose POC Glucose (mg/dL) 226 H 159 H 111 H Plasma Lactic Acid Hector Calcium Ionized Calcium Krystal Phosphorus Iron % Saturation AST Total Protein Albumin Albumin/Globulin Ratio Triglycerides Procalcitonin Urine Protein Triple Phos Crystals Amorphous Sediment Urine Mucus Crossmatch 12/06/23 12/07/23 12/07/23 23:54 00:10 00:13 WBC RBC Hgb Hct MCH MCHC RDW Plt Count Immature Gran # Neutrophils # Neutrophils # (Manual) Lymphocytes # Lymphocytes # (Manual) Eosinophils # Metamyelocytes # (Man) Myelocytes # (Manual) Nucleated RBCs NRBC/100 WBC Diff PT INR Fibrinogen ABG pH 7.50 H ABG pCO2 33 L ABG pO2 ABG HCO3 26 H ABG Total CO2 27 H ABG O2 Saturation 97.3 H Hemoglobin 8.8 L Sodium Potassium Chloride Carbon Dioxide Anion Gap BUN Creatinine BUN/Creatinine Ratio Glucose POC Glucose (mg/dL) 233 H 277 H Plasma Lactic Acid Hector Calcium Ionized Calcium Krystal Phosphorus Iron % Saturation AST Total Protein Albumin Albumin/Globulin Ratio Triglycerides Procalcitonin Urine Protein Triple Phos Crystals Amorphous Sediment Urine Mucus Crossmatch 12/07/23 12/07/23 12/07/23 04:30 06:04 06:05 WBC 18.7 H RBC 3.08 L Hgb 8.4 L Hct 26.4 L MCH MCHC RDW 20.1 H Plt Count 108 L Immature Gran # Neutrophils # 17.0 H Neutrophils # (Manual) Lymphocytes # 0.9 L Lymphocytes # (Manual) Eosinophils # Metamyelocytes # (Man) Myelocytes # (Manual) Nucleated RBCs NRBC/100 WBC Diff PT INR Fibrinogen ABG pH ABG pCO2 ABG pO2 ABG HCO3 ABG Total CO2 ABG O2 Saturation Hemoglobin Sodium 133 L Potassium Chloride Carbon Dioxide Anion Gap BUN 75 H Creatinine 2.95 H BUN/Creatinine Ratio Glucose 272 H POC Glucose (mg/dL) 308 H Plasma Lactic Acid Hector Calcium 7.1 L Ionized Calcium Krystal Phosphorus Iron % Saturation AST Total Protein Albumin Albumin/Globulin Ratio Triglycerides Procalcitonin Urine Protein Triple Phos Crystals Amorphous Sediment Urine Mucus Crossmatch 12/07/23 12/07/23 11:30 17:55 WBC RBC Hgb Hct MCH MCHC RDW Plt Count Immature Gran # Neutrophils # Neutrophils # (Manual) Lymphocytes # Lymphocytes # (Manual) Eosinophils # Metamyelocytes # (Man) Myelocytes # (Manual) Nucleated RBCs NRBC/100 WBC Diff PT INR Fibrinogen ABG pH ABG pCO2 ABG pO2 ABG HCO3 ABG Total CO2 ABG O2 Saturation Hemoglobin Sodium Potassium Chloride Carbon Dioxide Anion Gap BUN Creatinine BUN/Creatinine Ratio Glucose POC Glucose (mg/dL) 230 H 213 H Plasma Lactic Acid Hector Calcium Ionized Calcium Krystal Phosphorus Iron % Saturation AST Total Protein Albumin Albumin/Globulin Ratio Triglycerides Procalcitonin Urine Protein Triple Phos Crystals Amorphous Sediment Urine Mucus Crossmatch Assessment and Plan Assessment: * Altered mental status, likely due to toxic metabolic encephalopathy, severe * Aspiration pneumonitis from retained gastric contents * Ventilator dependent respiratory failure * Pulmonary edema * History of small bowel perforation at the site of jejunostomy tube tip with balloon * Acute kidney injury * Acute recurrent atrial fibrillation * Septic shock, recovered * Hypertension * Anemia * Thrombocytopenia, improving Plan: * EEG evaluate for encephalopathy, rule out any epileptiform activity. * CT head performed today which revealed no acute intracranial process. Some atrophy. I personally reviewed CT head agree with the findings. * Patient is generalized weak. Patient has been ICU for extended period of time. At risk for critical illness myopathy. * For medical management as per critical care and other specialties on board. * Discussed with patient's grandson and nursing staff in detail. * Neurology will follow. Thank you for the consult. Time with Patient: Greater than 30
[2023-12-08 05:03] LABS: ABG HCO3 27 mmol/L (21-25); ABG Oxygen Saturation 97.7 % (94-97); ABG PCO2 37 mmHg (35-45); ABG PH 7.47 (7.35-7.45); ABG PO2 88 mmHg (83-108); ABG TCO2 28 mmol/L (19-24)
[2023-12-08 05:48] LABS: Anisocytosis Moderate; Basophils % (A) 0 %; Eosinophils % (A) 0 %; HCT 22.9 % (39.0-53.0); HGB 7.6 gm/dL (13.0-17.5); Hypochromasia Slight; Lymphocytes # (A) 0.9 k/uL (1.0-4.8); Lymphocytes % (A) 5 %; MCH 28.3 pg (25.0-35.0); MCV 85.5 fL (80.0-100.0); Mean Platelet Volume 10.1; Monocytes # (A) 0.5 k/uL (0-1.0); Monocytes % (A) 3 %; Neutrophils # (A) 17.8 k/uL (1.3-7.7); Neutrophils % (A) 92 %; Platelet Count 104 k/uL (150-450); RBC 2.67 m/uL (4.30-5.90); RDW 20.4 % (11.5-15.5); WBC 19.3 k/uL (3.8-10.6)
[2023-12-08 06:00] LABS: Glucose,Whole Blood 334 mg/dL (70-110)
--- NOTE | 2023-12-08 06:13 | P.PN ---
Progress Note - Text Progress Note Date: 12/08/23 RAGHAV. Patient remains intubated. Tolerating tube feeds at 10 cc/hr. Patient had bowel movement. 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 Status post J-tube placement and revision for SBO -Ok to slowly advance TFs to Goal. -Continue TPN -ICU care Dick Ewing [facility] [phone]
[2023-12-08 06:15] LABS: African American GFR (CKD) 23 (>60 ml/min/1.73 sqM); Anion Gap 7 mmol/L; Blood Urea Nitrogen 72 mg/dL (9-20); Calcium 7.2 mg/dL (8.4-10.2); Carbon Dioxide 27 mmol/L (22-30); Chloride 99 mmol/L (98-107); Glucose 316 mg/dL (74-99); Magnesium 1.9 mg/dL (1.6-2.3); Non-African American GFR(CKD) 20 (>60 ml/min/1.73 sqM); Phosphorus 4.6 mg/dL (2.5-4.5); Potassium 4.2 mmol/L (3.5-5.1); Sodium 133 mmol/L (137-145)
--- NOTE | 2023-12-08 08:43 | XR ---
EXAMINATION TYPE: XR chest 1V DATE OF EXAM: 12/08/2023 COMPARISON: 12/07/2023 INDICATION: Endotracheal tube placement TECHNIQUE: Single frontal view of the chest is obtained. FINDINGS: The heart size is normal. The pulmonary vasculature is normal. There is diffuse opacification through the right lung. Small right pleural effusion is present. A min imal left pleural effusion is likely present. Endotracheal tube tip is 4.1 cm above the josseline. Right central venous catheter tip is within the marilin p right atrium. Nasogastric tube tip is within the left upper quadrant of the abdomen. Left central v enous catheter tip is in the superior vena cava. IMPRESSION: 1. Diffuse right lung opacity. Correlate for atelectasis and/or pleural effusion. 2. Small left pleural effusion. 3. Multiple lines and catheters discussed above [facility], Workstation: [email or web address], 12/08/2023 8:41 AM
--- NOTE | 2023-12-08 10:39 | P.PN ---
Subjective Patient is seen for follow-up for acute kidney injury. Off of propofol and maintained on Precedex. Urine output at 50-100 mL per hour. Edema has improved. Mentation is not much improved. Patient is scheduled for EEG tomorrow. Status post UF of 2 L with hemodialysis yesterday. Objective - Vital Signs Vital signs: Vital Signs Temp 98.0 F 12/08/23 08:00 Pulse 80 12/08/23 10:00 Resp 30 H 12/08/23 10:00 BP 120/69 12/08/23 10:00 Pulse Ox 99 12/08/23 10:00 FiO2 35 12/08/23 08:00 Intake & Output 12/07/23 12/08/23 12/08/23 18:59 06:59 18:59 Intake Total 3041.463 1426.425 447.030 Output Total 5306 760 415 Balance -2264.537 666.425 32.030 Weight 104.5 kg Intake: IV 1086 1056 117 0.9 KVO 150 120 30 Normal Saline Pressure 36 36 12 Saline TPN 900 900 75 Intake, IV Titration 1325.463 280.425 40.030 Amount Dexmedetomidine/0.9% NaCl 195.257 173.879 40.030 (Pmx) 400 mcg In Empty Bag 1 bag @ 0.2 MCG/KG/HR 5.485 mls/hr IV .[id number] [facility] Rx#:[id number] Meropenem 1 gm In Sodium 100 Chloride 0.9% 100 ml @ 33 .333 mls/hr IVPB HS [facility]MAL Rx#:[id number] Mvi, Adult No.4 with Vit 1084.5 K 10 ml Trace (Conc-1Ml/ Dose) 1 ml Sodium Acetate 60 meq Sodium Chloride 4Meq/ml Vial 52 meq Potassium Chloride 14 meq Calcium Gluconate 2.25 gm Magnesium Sulfate gm 0 .5 gm In Amino Acids 5 %/ Dextrose 20 % 1,000 ml @ 75 mls/hr IV .BY DURATION [facility] Rx#:[id number] Norepinephrine 8 mg In 45.706 6.546 Sodium Chloride 0.9% 250 ml @ 0.03 MCG/KG/MIN 6. 368 mls/hr IV .Q24H [facility]AL Rx#:[id number] Tube Feeding 110 90 35 TPN/PPN 225 TPN 225 Hemodialysis 400 Other 120 30 Output: Gastric Drainage 50 Drainage 120 80 Right Abdomen 120 80 Urine 735 680 415 Stool 1 Hemodialysis 2400 Hemodialysis Net Amount 1999 Other: Voiding Method Indwelling Catheter Indwelling Catheter Indwelling Catheter ABP, PAP, CO, CI - Last Documented Arterial Blood Pressure 146/56 - Exam patient is on the vent. Examination of the heart S1 and S2 Examination of the lungs bilateral breath sounds are heard Abdomen is soft dressed, RAYA drain noted Examination of lower extremities shows edema 1+ with significant scrotal edema, improving - Labs CBC & Chem 7: 12/08/23 04:50 12/08/23 04:50 Labs: Abnormal Lab Results - Last 24 Hours (Table) 12/07/23 12/07/23 12/07/23 Range/Units 11:30 17:55 20:58 WBC (3.8-10.6) k/uL RBC (4.30-5.90) m/uL Hgb (13.0-17.5) gm/dL Hct (39.0-53.0) % RDW (11.5-15.5) % Plt Count (150-450) k/uL Neutrophils # (1.3-7.7) k/uL Lymphocytes # (1.0-4.8) k/uL ABG pH (7.35-7.45) ABG HCO3 (21-25) mmol/L ABG Total CO2 (19-24) mmol/L ABG O2 Saturation (94-97) % Hemoglobin (13.0-17.5) gm/dL Sodium (137-145) mmol/L BUN (9-20) mg/dL Creatinine (0.66-1.25) mg/dL Glucose (74-99) mg/dL POC Glucose (mg/dL) 230 H 213 H 225 H (70-110) mg/dL Calcium (8.4-10.2) mg/dL Phosphorus (2.5-4.5) mg/dL 12/07/23 12/08/23 12/08/23 Range/Units 23:23 00:15 04:50 WBC (3.8-10.6) k/uL RBC (4.30-5.90) m/uL Hgb (13.0-17.5) gm/dL Hct (39.0-53.0) % RDW (11.5-15.5) % Plt Count (150-450) k/uL Neutrophils # (1.3-7.7) k/uL Lymphocytes # (1.0-4.8) k/uL ABG pH 7.47 H (7.35-7.45) ABG HCO3 27 H (21-25) mmol/L ABG Total CO2 28 H (19-24) mmol/L ABG O2 Saturation 97.7 H (94-97) % Hemoglobin 7.4 L (13.0-17.5) gm/dL Sodium 133 L (137-145) mmol/L BUN 72 H (9-20) mg/dL Creatinine 2.99 H (0.66-1.25) mg/dL Glucose 316 H (74-99) mg/dL POC Glucose (mg/dL) 247 H (70-110) mg/dL Calcium 7.2 L (8.4-10.2) mg/dL Phosphorus 4.6 H (2.5-4.5) mg/dL 12/08/23 12/08/23 Range/Units 04:50 05:58 WBC 19.3 H (3.8-10.6) k/uL RBC 2.67 L (4.30-5.90) m/uL Hgb 7.6 L (13.0-17.5) gm/dL Hct 22.9 L (39.0-53.0) % RDW 20.4 H (11.5-15.5) % Plt Count 104 L (150-450) k/uL Neutrophils # 17.8 H (1.3-7.7) k/uL Lymphocytes # 0.9 L (1.0-4.8) k/uL ABG pH (7.35-7.45) ABG HCO3 (21-25) mmol/L ABG Total CO2 (19-24) mmol/L ABG O2 Saturation (94-97) % Hemoglobin (13.0-17.5) gm/dL Sodium (137-145) mmol/L BUN (9-20) mg/dL Creatinine (0.66-1.25) mg/dL Glucose (74-99) mg/dL POC Glucose (mg/dL) 334 H (70-110) mg/dL Calcium (8.4-10.2) mg/dL Phosphorus (2.5-4.5) mg/dL Assessment and Plan Assessment: 1. Acute kidney injury secondary to ATN secondary to septic shock. Creatinine 0.86 on admission and up to 5.38 dated November 29, 2023. nonoliguric. UA fairly benign. No hydronephrosis noted on imaging. Started hemodialysis on 11/29/2023 for worsening volume status and acute kidney injury. 2. Perforated small bowel status post exploratory laparotomy with abdominal washout, small bowel resection and J-tube replacement November 25, 2023. 3. A-fib with RVR. s/p amiodarone drip. Also received digoxin this admission. 4. Recently diagnosed gastric B-cell lymphoma. 5. Septic shock. Likely abdominal source. On IV antibiotics. Off vaso pressors now. 6. Hypocalcemia secondary to acute kidney injury. Replaced. Improved. 7. Metabolic acidosis secondary to acute kidney injury. Improved. 8. Volume overload Plan: dialysisin a.m.. Continue with IV Lasix Add midodrine with dialysis Continue TPN Repeat labs in a.m.
[2023-12-08 12:05] LABS: Glucose,Whole Blood 264 mg/dL (70-110)
--- NOTE | 2023-12-08 12:13 | P.PN ---
Subjective Progress Note Date: 12/08/23 Principal diagnosis: Acute hypoxic respiratory failure requiring intubation mechanical ventilation secondary to aspiration. This is a 73-year-old white male with history of chronic abdominal pain for the last 8 months has been treated with Protonix 40 mg daily for the last 3 months with no improvement. Patient had a 22 pound weight loss in the last [address] of the abdomen and pelvis 3 weeks ago showed thickening of the antral wall with pathological adenopathy posterior to the stomach suspicious of neoplasm. Today the patient underwent elective upper endoscopy to evaluate further, patient received IV sedation by anesthesia endoscope was inserted into the mouth, esop hagus was intubated without any difficulty there was evidence of large amount of liquid and solid food noted in the stomach suggestive of gastric outlet obstruction. Scope could not be advanced through the pylorus, however in the prepyloric area there was a large superficial ulceration identified with multiple biopsies were done from this area. The body cardia and fundus could not adequately visualize because of large amount of retained food in the stomach. Scope was withdrawn back to the stomach and upon careful examination the mucosa of the antrum body and cardia as well as the fundus appeared normal. Procedure was being performed and biopsies were done patient threw up and subsequently became hypoxic there was clearly evidence of witnessed aspiration anesthesia intubated the patient, procedure was terminated, and the patient was transferred to the ICU, this consult was initiated. Patient is now on assist- control rate of 20 tidal volume 500 FiO2 70% PEEP of 10 ABG is pending, earlier ABG showed profound hypoxia patient is on propofol at 50 mcg/kg/min, next ABG is pending. Chest x-ray showed chronic changes without evidence of acute pulmonary disease. Patient was evaluated today on 11/17/2023, patient underwent uneventful placement of a jejunostomy tube yesterday, in the ICU on 5 L, patient is relatively stable, not in any distress, patient continues to have nasogastric tube in place although he did have a J-tube placed yesterday. Patient was seen by oncology for his non-Hodgkin's lymphoma involving the gastric outlet. Today's x-ray showed evidence of pneumonia/bilateral interstitial infiltrate/edema patient was given a dose of Lasix, I reminded the patient had an aspiration episode which was significant. And he required intubation mechanical ventilation for a few days.WBC count today is 9.1 hemoglobin 7.9 electrolytes are normal renal profile is normal hence I plan to transfer the patient out of the ICU to a cardiac floor. And hopefully discharge planning in the next 2 days for On 11/29/2023, the patient is being seen for a follow-up. Remains intubated on the mechanical ventilator. The patient sedated on propofol which is running at 35 mcg/kg/min. Synchronous with mechanical ventilator. On today's evaluation, he is on assist-control mode with rate of 28, tidal volume of 550, FiO2 55% with a PEEP of 5. Chest x-ray shows lower lobe consolidation bilaterally worse on the right and the orotracheal tube is in good location. The blood gas showed a pH of 7.34 with a pCO2 of 35 and a pO2 of 84. No significant orotracheal secretions. Hemodynamically improved compared to yesterday. In fact, the patient is on minimal norepinephrine that was discontinued earlier this morning. The patient has converted to normal sinus rhythm. Remains on amiodarone at 0.5 mg/min. Overall fluid balance over the past 24 hours is 2.4 L positive. Urine output has been adequate and the patient is currently on IV Lasix. Nevertheless, the patient has developed progressive worsening renal function. Creatinine is up to 5.3 on today's evaluation with a potassium level of 4.4. Serum bicarb is at 18 with an anion gap of 9. WBC count is at 8.1 with a hemogl obin of 7 and a platelet count of 32 which has dropped compared to earlier evaluation. The rest of the coagulation profile was normal from 11/28/2023. Fibrinogen level is slightly elevated. Sputum samples have shown a combination of Citrobacter and Pseudomonas aeruginosa. Based on cultures and sensitivities, the patient will be taken off his IV Zosyn and he will be switched to IV meropenem. Output from the J-tube is fecal. Output from the NG tube is gastric and surgical wound site is dry clean and intact. He is afebrile for now. Hemodynamically, the patient is doing better. He remains on TPN for nutritional support. IV fluids are also running at a rate of 75 cc an hour. Remains on vancomycin. 11/22/2023, the patient is being seen for a follow-up. The patient remains on propofol at 50 mcg/kg/min. Ventilator settings are essentially unchanged. The patient remains on assist-control mode with rate of 18, tidal volume of 400, FiO2 50% with a PEEP of 5. The blood gas showed a pH of 7.37 with a pCO2 of 43 and pO2 of 127. Chest x-ray shows no significant interval change. Patient remains on normal saline at rate of 75 cc an hour and TPN at rate of 35 cc an hour. Fluid balance is positive. Hemodialysis was performed yesterday and the second session of hemodialysis to be done today. The patient's urine output is in the order of 20 to 30 cc an hour. The patient has an NG output of 350 cc for yesterday and the drainage from the J-tube is in the order of 400 cc over the past 24 hours. The blood work shows a WBC count of 10.8, hemoglobin 8.1 and platelet count of 41. Platelet counts are essentially stable and slightly improved compared to yesterday. The sodium level is at 133, potassium is at 4.3, BUN is 93 with a creatinine of 3.6. LFTs are within normal limits. Albumin is down to 2.1. The patient is currently on no pressors. Norepinephrine and vasopressin are both discontinued and the patient remains in normal sinus rhythm. No other significant events overnight. Family has been updated on his condition. Antibiotic coverage is currently with IV meropenem. Vancomycin and Zosyn have been both discontinued. On 12/01/2023, the patient remains sedated on propofol which is running at 25 mcg/kg/min., Comfortable and synchronous mechanical ventilator. The patient remains on assist-control mode rate of 28, tidal volume of 550, FiO2 40% and PEEP of 5. Blood gas shows a pH of 7.49 with a pCO2 of 34 and pO2 of 121. Patient underwent hemodialysis yesterday. No plans for hemodialysis today the patient is producing urine output. Remains on TPN for nutrition support rate of 75 cc an hour. IV fluids are currently at KVO. The chest x-ray from today shows bilateral lower lobe consolidation worse on the right. No significant change in the volume status. The patient continues to have third spacing and edema in all 4 extremities. Nevertheless, urine output is adequate at this point in time and the patient remains on Lasix 80 mg IV every 12 hours. Remains NPO. NG tube and J-tube are both drainage. Output is noted. Remains on IV meropenem. Afebrile. Currently on no pressors. Blood work shows a WBC count of 11.4, hemoglobin of 8.1 and platelet count of 46. Sodium is at 131, potassium level is at 3.7, chloride 101 and bicarb is at 24. BUN is 84 with a creatinine of 3.6. Glucose of 228. LFTs are within normal limits. Patient was reevaluated today on 12/02/23, patient remains in the ICU, patient is familiar to my service, I saw this patient 3 weeks ago. Since then he had a very complicated hospital course, related to his jejunostomy tube dislodging and leaking and picture of abdominal sepsis and worsening pneumonia/ARDS. Patient had to be placed back on mechanical ventilation, and he is now intubated and mechanically ventilated. He is on assist-control rate of 20 tidal volume 550 FiO2 40% PEEP of 5 ABG showed a pO2 of 111 pCO2 38 pH of 7.43 and I cut down his FiO2 to 35% and increase his flow rate from 60-70. Patient remains on TPN at 75 cc/h he is on propofol at 25 mcg/kg/min patient is on Cleviprex which I added today for elevated blood pressure. Receiving Lasix 80 mg every 12 hours is also on Merrem as per infectious disease. Patient is on hemodialysis and being followed by nephrology. Patient required multiple abdominal surgeries since his initial admission. Chest x-ray continues to show worsening pneumonia involving both lungs, right more so than left, I suspect there may be a component of ARDS. His initial presentation was the presentation of aspiration pneumonia to begin with and that was 3 weeks agoWBC count is 10.3 hemoglobin 8.6 sodium 131 potassium 4 chloride 100 bicarb 23 BUN is 111 creatinine 4.02 blood sugar is 248. Albumin is 1.9 Patient was evaluated today on , patient remains in the ICU, intubated and mechanically ventilated. Patient is on assist-control rate of 20 tidal volume 550 FiO2 35% and PEEP of 5 ABG showed a pO2 of 99 pCO2 39 pH of 7.44 patient is undergoing hemodialysis today, and the plan is to remove 2 L. He is remains on propofol at 35 mcg/kg/min, remains on TPN at 75 cc/h. Remains on Merrem. Patient is not requiring any pressors today. Yesterday patient did not tolerate to be off sedation long enough, and today we tried the same sedation in terruption, and the patient did not do well post interruption of sedation, became extremely agitated restless, tachycardic, and could not fully assess mental status off sedation. Hence the patient was placed back on AC mode of mechanical ventilation, and the plan is to continue the same supportive care measures. Family updated on his condition and most likely the patient will end up requiring tracheostomy in the next few days.WBC count is 8.5 hemoglobin 8.2 basic metabolic profile is relatively unremarkable BUN is 89 creatinine 3.45 chest x-ray today showed stable chest, suspect some right-sided pleural effusion which would likely improve with hemodialysis/ultrafiltration. X-ray of abdomen showed nonspecific nonobstructive bowel gas pattern Patient was seen today on 12/04/2023, remains in the ICU, intubated mechanically ventilated, on assist-control rate of 20 tidal volume 550 FiO2 35% PEEP of 5 ABG showed a pO2 of 112 pCO2 38 pH of 7.45, hence no changes were made in ventilator settings. Patient is on propofol at 35 mcg/kg/min he is also on IV fluid at KVO TPN at 75 cc/h. Remains on hemodialysis remains on Lasix 80 mg IV push twice daily, remains on Merrem. This x-ray continues to show the same findings/airspace disease in both lungs, not much of a change in the last 2 day s, however his oxygenation seems to be improved. WBC count is 7.1 hemoglobin 7.7. Electrolytes are normal, BUN is elevated 77 creatinine 3.32, patient is on hemodialysis. His condition was discussed today with the at bedside, and I do not believe the patient is ready to be weaned or extubated, however he seems to get extremely agitated when he goes off propofol, today I plan to transition propofol to Precedex, give him a trial on Precedex and determine whether the patient becomes more appropriate and at least ready for any weaning trials. Clinically I doubt if this will happen but we will go ahead and try Patient was evaluated today on 12/05/2023, remains in the ICU, intubated mecha nically ventilated, not much of a change noted in the last 24 hours. Remains on assist-control of 20 tidal volume 550 FiO2 35% PEEP of 5 ABG showed a pO2 of 90 pCO2 37 pH of 7.48 hence chose not to change any of his ventilator settings. Yesterday the patient failed again trial of weaning, and he was never anywhere near ready to be weaned in spite of placing him on Precedex and off propofol, at 1 point the patient became extremely agitated restless and he was biting on the endotracheal tube could not fully awake the patient and determine improvement in his mental status. Hence patient was placed back on propofol yesterday and he remains on propofol today. He is on propofol at 25 mcg/kg/min he is on TPN at 75 cc/h surgery is considering starting his J-tube feedings today. Remains on hemodialysis remains on Merrem remains on Lasix 80 mg IV push twice daily overall not much of a change his chest x-ray is basically about the same showing bibasilar airspace disease. Today I had a discussion with the regarding the option of tracheostomy extremely reluctant to have it done yet. Said that the patient had multiple complications with previous surgeries and she is afraid that he is going to have another complication with the surgeryWBC count is 10.2 hemoglobin is 8, basic metabolic profile is normal sodium 130 BUN 70 creatinine 2.89 Patient was seen today on 12/06/23, remains in the ICU, intubated mechanically ventilated, his ventilator settings are assist-control rate 20 tidal volume 550 FiO2 35% and PEEP of 5 ABG showed a pO2 of 103 pCO2 36 pH of 7.47 patient opens eyes but does not follow any other instructions. He is now off propofol for the last 24 hours, he is maintained on Precedex at 0.4, TPN at 75 cc/h vital AF at 5 mL/h. Patient remains on Merrem, patient did not receive dialysis today because issues related to occluded dialysis catheter. Nonetheless the patient is making urine, and continues to improve with diuretics. 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 Blood sugar is 226. Family is at bedside, considering his overall mental status at this point, not quite ready to start checking weaning parameters, and is not ready for weaning. Nonetheless I plan to keep him on Precedex, and hopefully avoid narcotics and other sedatives. His mentation starts clearing a bit more, then will start trials of weaning parameters and/or weaning trials Patient was seen today on 12/07/2023, remains in the ICU, intubated and mechanically ventilated, on assist-control rate of 20 tidal volume 550 FiO2 35% PEEP of 5 ABG showed a pO2 of 83 pCO2 33 pH of 7.50 hence the tidal volume was cut down to 500. Patient remains off propofol remains off narcotics is only on Precedex for sedation at 0.6 mg/kg/h. He is on norepinephrine at 0.02 TPN at 75 cc/h IV fluid at KVO vital AF at 10 mL/h is also on Merrem. Neurologically I am concerned about this patient neurological status, does not seem to be waking up much, he opens his eyes but does not follow any instructions and spite of sedation hold for quite some time. Hence I am recommending a CT of the brain and multiple recommending a neurological consultation on this patient. WBC count is 18 7 hemoglobin is 8.4, basic metabolic profile is normal BUN is 75 creatinine 2.95, patient is back on dialysis, he had a new hemodialysis catheter placed yesterday by vascular surgery, and he will be restarted back on hemodialysis. CT of the brain done shortly after evaluating the patient showed no acute intracranial process chest x-ray basically about the same, continues to show small left and moderate right basilar infiltrate. Has not changed much over the last 1 week, patient remains on antibiotics. Patient was seen today on 12/08/2023, remains in the ICU, intubated and mechanically ventilated, remains on assist-control rate of 20 tidal volume 500 FiO2 35% PEEP of 5 ABG showed a pO2 of 88 pCO2 37 pH of 7.47 hence no changes were made in ventilator settings. Chest x-ray is showing slight increase in his right-sided pleural effusion, however his oxygenation seems to be about the same, and the patient is responding to Lasix given at 80 mg IV push every 12 hours, he is also doing well with hemodialysis he had 2 L removed yesterday and 2 L the day before. Hence will not recommend thoracentesis at this point. But the pleural effusion will need to be closely monitored. Patient remains off propofol he is on Precedex at 0.6 mcg/kg/h. For the last 2 days, and his mentation is not much different from baseline. Continues to open his eyes and does not follow any other instructions has the patient is clearly not ready for weaning trials or extubation. Brought up the issue of tracheostomy again with the , she is still reluctant to proceed with tracheostomy on him at this point. Patient remains on Merrem, remains on TPN but his enteral feeding will be advanced today to full goal, and if that happens then we will can discontinue TPN. Patient is receiving vital AF 1.2@10 mL/h at this point.WBC count is 19.3 hemoglobin 7.6. Basic metabolic profile is normal BUN is 72 creatinine 2.99 blood sugar ranging between 250 up to 334. Objective - Vital Signs Vital signs: Vital Signs Temp 98.0 F 12/08/23 08:00 Pulse 75 12/08/23 11:28 Resp 35 H 12/08/23 11:00 BP 124/66 12/08/23 11:00 Pulse Ox 97 12/08/23 11:00 FiO2 35 12/08/23 11:21 Intake & Output 12/07/23 12/08/23 12/08/23 18:59 06:59 18:59 Intake Total 3041.463 1426.425 565.114 Output Total 5306 760 540 Balance -2264.537 666.425 25.114 Weight 104.5 kg Intake: IV 1086 1056 130 0.9 KVO 150 120 40 Normal Saline Pressure 36 36 15 Saline TPN 900 900 75 Intake, IV Titration 1325.463 280.425 55.114 Amount Dexmedetomidine/0.9% NaCl 195.257 173.879 55.114 (Pmx) 400 mcg In Empty Bag 1 bag @ 0.2 MCG/KG/HR 5.485 mls/hr IV .[id number] [facility] Rx#:[id number] Meropenem 1 gm In Sodium 100 Chloride 0.9% 100 ml @ 33 .333 mls/hr IVPB HS [facility] Rx#:[id number] Mvi, Adult No.4 with Vit 1084.5 K 10 ml Trace (Conc-1Ml/ Dose) 1 ml Sodium Acetate 60 meq Sodium Chloride 4Meq/ml Vial 52 meq Potassium Chloride 14 meq Calcium Gluconate 2.25 gm Magnesium Sulfate gm 0 .5 gm In Amino Acids 5 %/ Dextrose 20 % 1,000 ml @ 75 mls/hr IV .BY DURATION [facility] Rx#:[id number] Norepinephrine 8 mg In 45.706 6.546 Sodium Chloride 0.9% 250 ml @ 0.03 MCG/KG/MIN 6. 368 mls/hr IV .Q24H [facility] Rx#:[id number] Tube Feeding 110 90 50 TPN/PPN 300 TPN 300 Hemodialysis 400 Other 120 30 Output: Gastric Drainage 50 Drainage 120 80 Right Abdomen 120 80 Urine 735 680 540 Stool 1 Hemodialysis 2400 Hemodialysis Net Amount 2000 Other: Voiding Method Indwelling Catheter Indwelling Catheter Indwelling Catheter ABP, PAP, CO, CI - Last Documented Arterial Blood Pressure 175/67 - Exam General: Revealed 73-year-old white male intubated, mechanically ventilated, sedated, on Precedex, off propofol for the last 2 days Skin: Skin is warm and dry and no rashes or lesions are noted. Eye: Pupils are equal, round and reactive to light, extra-ocular movements are intact; there is normal conjunctiva bilaterally. Ears, nose, mouth and throat: There are moist mucous membranes and no oral lesions. Neck: The neck is supple, there is no tenderness or JVD. Cardiovascular: There is a regular rate and rhythm. No murmur, rub or gallop is appreciated. Respiratory: Diminished breath sounds and crackles at the bases no rhonchi no wheezes Gastrointestinal: J-tube is noted RAYA drain is noted NG tube is in place mild abdominal distention, no rebound, no guarding, no bowel sounds, no significant leak noted from the tubes in the abdomen. Musculoskeletal: No deformities and no limitation range of motion Neurological: Patient does not follow any instructions opens eyes and does not follow any instructions Extremities: Trace of bipedal edema - Labs CBC & Chem 7: 12/08/23 04:50 12/08/23 04:50 Labs: Abnormal Lab Results - Last 24 Hours (Table) 12/07/23 12/07/23 12/07/23 Range/Units 17:55 20:58 23:23 WBC (3.8-10.6) k/uL RBC (4.30-5.90) m/uL Hgb (13.0-17.5) gm/dL Hct (39.0-53.0) % RDW (11.5-15.5) % Plt Count (150-450) k/uL Neutrophils # (1.3-7.7) k/uL Lymphocytes # (1.0-4.8) k/uL ABG pH (7.35-7.45) ABG HCO3 (21-25) mmol/L ABG Total CO2 (19-24) mmol/L ABG O2 Saturation (94-97) % Hemoglobin (13.0-17.5) gm/dL Sodium (137-145) mmol/L BUN (9-20) mg/dL Creatinine (0.66-1.25) mg/dL Glucose (74-99) mg/dL POC Glucose (mg/dL) 213 H 225 H 247 H (70-110) mg/dL Calcium (8.4-10.2) mg/dL Phosphorus (2.5-4.5) mg/dL 12/08/23 12/08/23 12/08/23 Range/Units 00:15 04:50 04:50 WBC 19.3 H (3.8-10.6) k/uL RBC 2.67 L (4.30-5.90) m/uL Hgb 7.6 L (13.0-17.5) gm/dL Hct 22.9 L (39.0-53.0) % RDW 20.4 H (11.5-15.5) % Plt Count 104 L (150-450) k/uL Neutrophils # 17.8 H (1.3-7.7) k/uL Lymphocytes # 0.9 L (1.0-4.8) k/uL ABG pH 7.47 H (7.35-7.45) ABG HCO3 27 H (21-25) mmol/L ABG Total CO2 28 H (19-24) mmol/L ABG O2 Saturation 97.7 H (94-97) % Hemoglobin 7.4 L (13.0-17.5) gm/dL Sodium 133 L (137-145) mmol/L BUN 72 H (9-20) mg/dL Creatinine 2.99 H (0.66-1.25) mg/dL Glucose 316 H (74-99) mg/dL POC Glucose (mg/dL) (70-110) mg/dL Calcium 7.2 L (8.4-10.2) mg/dL Phosphorus 4.6 H (2.5-4.5) mg/dL 12/08/23 12/08/23 Range/Units 05:58 12:03 WBC (3.8-10.6) k/uL RBC (4.30-5.90) m/uL Hgb (13.0-17.5) gm/dL Hct (39.0-53.0) % RDW (11.5-15.5) % Plt Count (150-450) k/uL Neutrophils # (1.3-7.7) k/uL Lymphocytes # (1.0-4.8) k/uL ABG pH (7.35-7.45) ABG HCO3 (21-25) mmol/L ABG Total CO2 (19-24) mmol/L ABG O2 Saturation (94-97) % Hemoglobin (13.0-17.5) gm/dL Sodium (137-145) mmol/L BUN (9-20) mg/dL Creatinine (0.66-1.25) mg/dL Glucose (74-99) mg/dL POC Glucose (mg/dL) 334 H 264 H (70-110) mg/dL Calcium (8.4-10.2) mg/dL Phosphorus (2.5-4.5) mg/dL Assessment and Plan Assessment: Impression: Acute hypoxic respiratory failure requiring intubation mechanical ventilation secondary to aspiration. Status post J-tube placement 11/16/2023, multiple complications since then related to the J-tube placement requiring multiple surgeries. 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 Continue dialysis Continue Lasix Continue to avoid nephrotoxic drugs Continue GI and DVT prophylaxis Condition discussed with at bedside, and again I brought up the issue of tracheostomy indication, she is still reluctant to proceed with tracheostomy Remains critically ill Critical care time is over 30 Will continue to follow Time with Patient: Greater than 30
[2023-12-08 17:29] LABS: Glucose,Whole Blood 257 mg/dL (70-110)
[2023-12-08] MEDS: levETIRAcetam IV 500 MG/5 ML VIAL IVP SCH (18:33)
--- NOTE | 2023-12-08 19:56 | P.PN ---
Progress Note - Text Progress Note Date: 12/08/23 Chief Complaint: Aspirated This is a 73-year-old patient, follows with Dr. Patricia Deal. Patient was seen this morning in the ICU. Patient's and daughter at the bedside. History obtained predominantly by the . Patient been having trouble with his stomach symptoms for close to 8 months. Patient underwent EGD by Dr. Sahara Cheng yesterday. Patient was found to have ulcerated around the antrum and obstruction to the pylorus. A lot of retained food was found. Patient aspirated. Had to be intubated and brought to the ICU. On a Levophed drip. FiO2 50 and a PEEP of 6. Patient had been losing weight lost about 25 pounds. Previously has a history of mitral valve prolapse. November 13: ICU. Patient remains on Precedex drip and propofol drip. Did not do well attempted extubation yesterday. Patient been off Levophed. NG tube to suction. Spoke to patient's and son at the bedside. Biopsy results awaited. Hemoglobin dropped to 6.9 this morning. Get a unit of blood. November 14: ICU. Up in a chair. Extubated yesterday. NG tube to suction. at the bedside. 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 Oncology was consulted. They have ordered a port. Results discussed with Dr. Sahara Cheng. General surgery was consulted for J-tube placement. Discussed with at the bedside. Patient getting IV fluids, IV Zosyn,. Patient has been on IV amiodarone for A-fib-back in sinus rhythm. Multiple PACs. Did receive unit of blood yesterday. Also IV ferric gluconate. November 15: ICU. Patient earlier today underwent jejunostomy tube placement and a port placement. Patient awake. Answering questions. NG tube to suction present. Updated patient's . Patient remains on IV amiodarone and IV Zosyn. November 16: ICU. Up in the chair. NG tube present but not to suction. Trickle feeding through the jejunostomy tube should be started today. Dietitian has been on board. IV Zosyn to continue. Patient's and his sister at the bedside. Discussed. Also spoke with Dr. Serna. Given patient has no other predisposing cardiac factors for the A-fib except acute illness. His LV function is normal. Left atrium is normal. He has already been loaded with IV amiodarone. Will switch him to oral Lopressor 12.5 twice daily. Hence will DC amiodarone. Patient yesterday had wheezing was put on bronchodilators steroids per pulmonary. November 17: Propped up in bed. NG tube was discontinued. Sinus rhythm. Remains NPO. Getting G-tube feeding at 40 cc an hour. Dietitian following. Get arrangements done for DC home tomorrow including tube feeding. Increase activity discussed with patient and elder daughter at the bedside. Still requiring oxygen. Incentive spirometry. November 18: Patient up in recliner. Earlier today spoke to social media marketing analyst David. Informed patient is rather weak and will be going to the [facility]. Looking at authorization. Denae came to the room and spoke to patient his and his daughter. They are very keen to take the patient home as 3 daughters all nurses and they will take care of him at home. Patient earlier today to abdominal cramping and some loose stools.'s tube feeding was held. Told the nurse to start back at the rate of 40 cc an hour. He was before the getting it at 55 cc an hour. Incentive spirometry was again emphasized. Patient remains on 4 L of oxygen. November 19: I saw the patient this morning. Hence I am in the evening. Morning was sitting with his sons. Has some edema. Lungs had crackles I gave him 40 mg of Lasix. He did make good urine. Tube feeding was held from the previous evening of because of abdominal cramping. Acute abdominal series showed nonspecific bowel gas pattern and SBO to be ruled out. Family and patient was updated. Told him discharge will depend on day by day. Later this afternoon CT scanAnd abdomen pelvis done. Showed small bowel to be 3 point centimeter dilated. Some anasarca. Gastric findings. Gallstones. Later spoke to Dr. Irby from general surgery. They will further review and decide about further plan of action. Will give further dose of IV Lasix because of fluid overload from likely hypoalbuminemia and IV fluids previously received. Patient may take his pills by mouth. Total time spent today about 1 hour with over 40 minutes of discussion. Patient did state his breathing is better after Lasix this morning. November 20: Saw the patient this morning. was present. Patient received 2 more doses of Lasix. Diuresed well. Breathing much better. Lungs are sounding better. Discussed with Dr. Zepeda other surgeon. He is taking 3 cc out of the balloon and the gastrostomy tube. Started trickle feeding at 5 cc an hour. Will see how this does. Later in the day ran into the and the daughter again. Did update them on the same. Dilaudid was discontinued yesterday but morphine was ordered by surgery for patient having pain. Concerns about GI issues with that we will DC the morphine. As family does not want the same. November 21: Patient reclining bed. Tired. Several family members at the bedside. Including his and eldest daughter. Patient started on trickle feed yesterday at 5 cc an hour. This morning he has been on 10 cc an hour. Still having some loose stools. C. difficile was ordered. Patient on 2 L of nasal cannula. Has diuresed well. Will give an additional dose of Lasix today. If C. difficile is negative and the diarrhea is from the tube feedings we may have to use a fecal management system to keep him comfortable. Otherwise patient remains NPO. Dietitian is following the patient. Care was discussed length with patient the and daughter at the bedside. Questions answered. Liquid Tylenol has been added for abdominal pain. Avoid narcotics. Elevated white count likely from Solu-Medrol 11/23/2023--patient was feeling better today. Multiple family member at bedside. No issues overnight. Normal saline at 10 cc an hour, tube feeding at 20 cc an hour, remains on Zosyn, on 3 L oxygen. Afebrile. Heart rate 62, respiratory rate 16, blood pressure 114/67, saturating 91% on 3 L. WBCs 14.5, 9.7 hemoglobin. Platelet 242. BMP is unremarkable. Pulmonary and general surgery following. General surgery recommended to continue tube feeds at 20 cc/h. 11/24/2023--patient reported significant abdominal discomfort, also noted to have leak around G-tube. General surgery is following, evaluated the patient at bedside, adjusted tube feeds. Also reported having diarrhea, on 2 L oxygen, went up to 5 L. Blood pressure was low, 500 mL fluid bolus with close monitoring of respiratory status ordered. Currently on DuoNebs, Solu-Medrol, will continue Zosyn. Chest x-ray showed a left lower lobe infiltrate. Abdominal x-ray showed multiple air-fluid levels. CT abdomen showed multiple dilated small bowel loops, consistent with obstruction, pneumoperitoneum, cholelithiasis and ascites. WBCs 14.1, platelet 255, hemoglobin 8.9. NG tube in place. Family at bedside. patient transferred to SICU for close monitoring. 11/25/23--patient is currently in the ICU, required Levophed overnight due to low blood pressure, low urine output with creatinine trending up. Nephrology following. Joy Loader also following. Patient remains n.p.o., NG tube in place, following NG tube insertion patient had total of 2 L output, J-tube was draining approximately 200 cc over last 8 hours, continues to have abdominal pain and abdominal tenderness. Patient on IV fluids. Currently on 4 L oxygen. WBCs 8.2, hemoglobin 12.3, platelet 188. Chest x-ray earlier today showed right sided port and a stable left lung airspace disease, NG tube in place. Patient currently on Zosyn, on IV Dilaudid for pain control, on IV Solu-Medrol. General surgery planning for OR today, started on TPN. 11/26/23--patient was seen and examined today. Patient is currently sedated, intubated on mechanical ventilation. Family at bedside. Patient underwent ex lap, abdominal washout, small bowel resection with new feeding jejunostomy tube placement yesterday, small bowel was noted to be perforated with significant contamination of abdominal cavity. Patient is currently on vancomycin and Zosyn. Creatinine went up to 2.85, nephrology following, recommended to continue IV fluids, avoid nephrotoxin Preserved EF on echocardiogram.. Patient currently on Levophed, vasopressin in the ICU for close monitoring. Patient is afebrile, heart rate 122, blood pressure 129/76, currently on mechanical ventilation, sedated. November 26: ICU. Intubated. FiO2 60 and a PEEP of 5. Drips include IV amiodarone. Heart rate was up early did get fired microgram of IV digoxin and 2.5 mg of IV Lopressor. Did drop her blood pressure bit. Urine output was low. Received 80 mg of IV Lasix. Ahmet to 150 cc. Other drips include IV propofol, vasopressin, Levophed. TPN was started yesterday. Antibiotics include IV Zosyn and vancomycin. Patient has a J-tube to drainage to gravity. Spoke to patient's younger daughter and at the bedside. Prognosis guarded. Continue current treatment plan. Chest x-ray shows right lower lobe consolidation. Small pleural effusion. November 27: ICU. Intubated. FiO2 55 and a PEEP of 5. Antibiotics include IV vancomycin. Drips include Levophed at a small dose, IV vasopressin, propofol, amiodarone. Patient converted to sinus rhythm this morning. Getting TPN and normal saline at 75 cc an hour. Urine output about 25 cc an hour. RAYA drain put out about 260 cc last 12 hours that is last operation shift supervisor. NG tube with bilious output. And also GI J-tube output to gravity. Spoke to patient's and daughter at the bedside. They understand patient still not out of the kee. Platelets have dropped-therefore probably Zosyn stopped. November 28: ICU. Intubated. FiO2 55 and a PEEP of 5. Patient is in sinus rhythm. Seen this morning. Due for dialysis catheter this afternoon. Urine output about 15 to 20 cc an hour. Patient is on IV Lasix 80 mg every 12. Saline is KVO. Drips include IV propofol vasopressin. Patient having significant output through the RAYA drain and the jejunostomy tube to drainage. Creatinine had been getting worse. Patient's at the bedside. Understands patient's remains critically ill. Hemoglobin is down to 7. Given that patient's pain hypotensive, and on vasopressin we will give a unit of blood with dialysis. Getting TPN antibiotic changed to IV meropenem November 29: ICU. Intubated. FiO2 55 and a PEEP of 5. Remains in sinus rhythm. Getting TPN. Dialyzed yesterday and this morning. About 1000 cc removed. Urine output about 50 cc an hour. Patient is on IV propofol. Off vasopressin. Still having significant output through the RAYA drain and jejunostomy tube. Patient received a second unit of blood yesterday. Patient's and daughter at the bedside. I did discuss guarded prognosis. Did asked them to revisit CODE STATUS.. Getting IV meropenem. November 30: ICU. Intubated. Did get a sedation holiday t today. Back on propofol. Getting TPN. Still getting IV Lasix. Fair urine output. Jejunostomy tube in last 8 hours was about 30 cc output. RAYA drain in the 8 hours had about 180 cc output. Telemetry shows sinus rhythm. NG tube has low intermittent suction with negative output. On the vent with FiO2 40 and a PEEP of 5. No hemodialysis today. Discussed with the and eldest daughter at the bedside. IV meropenem-patient's sputum had grown Citrobacter freundii and Pseudomonas aeruginosa. December 01: ICU. Intubated. Jejunostomy tube to gravity. Only 10 cc output in last 24 hours. RAYA drain. About 190 cc last 6 hours. Nasogastric tube to low intermittent suction. Minimal output. Patient is on a small dose of propofol 5 mics. Telemetry shows sinus rhythm. Patient started on small dose of Cleviprex this morning. Blood pressure. Getting TPN. FiO2 35 and PEEP of 5. Discussed with the at the bedside. Hemodialysis today December 02: ICU. Patient remains intubated. FiO2 35 PEEP of 5. Patient is on IV propofol. IV Cleviprex was discontinued yesterday. Also remains on TPN. Telemetry shows sinus rhythm. NG tube is good no output. Still significant output through the RAYA drain. Jejunostomy tube has minimal output. Patient had hemodialysis today 2 L of fluid was removed. Oral half liters yesterday. Patient getting a sedation holiday. General Surgery started the patient on trickle feeding at 10 cc an hour. I did speak to patient's at the bedside. Prognosis remains guarded but there is some improvement. December 03: ICU. Intubated. FiO2 35 PEEP of 5. Drips include IV propofol and Precedex. Getting TPN. Telemetry shows sinus rhythm. Remains on IV Lasix 80 mg twice a day. IV meropenem. Because patient gets easily agitated when transitioning off propofol he has been switched over to Precedex. For hemodialysis today. December 04: ICU. Intubated. FiO2 35 and a PEEP of 5. Patient been taken off propofol is on Precedex. Telemetry sinus rhythm. J-tube with minimal output. RAYA drain with decreased output. NG tube to suction minimal output. Family wanted to hold off trickle feeding until cleared by oncology. Which he did today. Trickle feeding will be started today. Spoke to patient's and one of the daughters at the bedside. Dr. Russ is spoken to the earlier this point they want to do further tracheostomy tube. December 05: ICU. Intubated. FiO2 35 PEEP of 5. Patient remains on Precedex and PPN. Patient's dialysis catheter was not functioning is getting another [address] Bobby this afternoon. Remains on IV meropenem. Has a RAYA drain in the jejunostomy tube to gravity. NG tube to low intermittent suction. No family at the bedside. December 06: ICU. Intubated. FiO2 35 PEEP of 5. RAYA drain putting out about approximately 120 cc per shift. Patient on IV Precedex. FiO2 35 PEEP of 5. Telemetry-sinus rhythm. Patient occasionally been put on small dose of Levophed specially for hemodialysis getting it today. Also started on midodrine for low blood pressure. Tolerating tube feeding at 10 cc an hour. Also had a bowel movement. Mentation has not improved. Even with sedation holiday. Neurology consulted. CT brain shows no acute process. December 07: ICU. Intubated. FiO2 35 PEEP of 5. Telemetry-sinus rhythm. NG tube to suction low intermittent minimal output. Getting TPN. Tube feeding at 20 cc an hour. RAYA drain averaging over 100 cc per shift. Remains on Precedex. EEG was done today. Discussed with at the bedside. Family is currently not inclined for tracheostomy tube today. Day 13 of being intubated Active Medications Acetaminophen (Acetaminophen Tab 325 Mg Tab) 650 mg PO Q4HR PRN PRN Reason: Fever and/ or Pain Last Admin: 11/22/23 08:46 Dose: 650 mg Acetaminophen (Acetaminophen Oral Susp (Peds) 3,840 Mg/120 Ml Bottle) 480 mg PO Q4HR PRN PRN Reason: Fever Albuterol/Ipratropium (Ipratropium-Albuterol 3 Ml Neb) 3 ml INHALATION RT-QID [facility] Last Admin: 12/08/23 19:26 Dose: 3 ml Albuterol/Ipratropium (Ipratropium-Albuterol 3 Ml Neb) 3 ml INHALATION RT-Q2H PRN PRN Reason: Shortness Of Breath Or Wheezing Last Admin: 12/03/23 03:45 Dose: 3 ml Chlorhexidine Gluconate (Chlorhexidine Gluconate 15 Ml Cup) 15 ml MUCOUS MEM BID [facility] Last Admin: 12/08/23 08:54 Dose: 15 ml Dextrose/Water (Dextrose 50% Syringe 50 Ml) 25 ml IVP PER PROTOCOL PRN; Protocol PRN Reason: Hypoglycemia Dextrose/Water (Dextrose 50% Syringe 50 Ml) 50 ml IVP PER PROTOCOL PRN; Protocol PRN Reason: Hypoglycemia Furosemide (Furosemide 10 Mg/Ml 10 Ml Vial) 80 mg IV Q12H [facility] Last Admin: 12/08/23 17:31 Dose: 80 mg Hydromorphone HCl (Hydromorphone 0.5 Mg/0.5 Ml Syringe) 0.5 mg IVP Q6HR PRN PRN Reason: Pain Last Admin: 12/07/23 16:09 Dose: 0.5 mg Sodium Chloride (Saline 0.9%) 1,000 mls @ 20 mls/hr IV .Q24H [facility] Last Admin: 12/08/23 13:46 Dose: Not Given Meropenem 1 gm/ Sodium (Chloride) 100 mls @ 33.333 mls/hr IVPB HS [facility] Last Admin: 12/07/23 21:46 Dose: 33.333 mls/hr Dexmedetomidine HCl 400 mcg/ (IV Solution) 100 mls @ 5.485 mls/hr IV .[id number] [facility]; Protocol Last Admin: 12/08/23 14:57 Dose: 0.6 mcg/kg/hr, 16.455 mls/hr Norepinephrine Bitartrate 8 mg (/ Sodium Chloride) 258 mls @ 6.368 mls/hr IV .Q24H [facility]; Protocol Last Admin: 12/08/23 13:46 Dose: Not Given Parenteral Vitamin Supplement 10 ml/ Zinc/Copper/Manganese/Selenium 1 ml/ Sodium Acetate 60 meq/ Sodium Chloride 68 meq / Potassium Chloride 14 meq/Calcium Gluconate 2.25 gm/Magnesium Sulfate 0.5 gm/Amino Acids/Dextrose 1,088.5 mls @ 75 mls/hr IV .BY DURATION [facility] Sodium Acetate 60 meq/ Sodium Chloride 68 meq/ Potassium Chloride 14 meq/ Calcium Gluconate 2.25 gm/ Magnesium Sulfate 0.25 gm/ Amino Acids/Dextrose 1,077 mls @ 75 mls/hr IV .BY DURATION [facility] Last Admin: 12/08/23 13:46 Dose: 75 mls/hr Insulin Aspart (Insulin Aspart (Novolog) 100 Unit/Ml Vial) 0 unit SQ 0000,0600,1200,1800 [facility]; Protocol Last Admin: 12/08/23 17:31 Dose: 6 unit Insulin Detemir (Insulin Detemir (Levemir) 100 Unit/Ml Syr) 24 unit SQ DAILY@0700 [facility] Last Admin: 12/08/23 06:42 Dose: 24 unit Levetiracetam (Levetiracetam Iv 500 Mg/5 Ml Vial) 500 mg IVP Q24HR [facility] Last Admin: 12/08/23 18:33 Dose: 500 mg Methylprednisolone Sodium Succinate (Methylprednisolone Sod Succi 40 Mg/Ml 1 Ml Vial) 40 mg IV DAILY@1800 [facility] Last Admin: 12/08/23 17:31 Dose: 40 mg Metoprolol Tartrate (Metoprolol Tartrate 5 Mg/5 Ml Vial) 2.5 mg IVP Q6HR PRN PRN Reason: Heart Rate - HIGH Last Admin: 11/27/23 08:25 Dose: 2.5 mg Midodrine (Midodrine 5 Mg Tab) 5 mg PO AC-TID [facility] Last Admin: 12/08/23 17:25 Dose: Not Given Miscellaneous Information (Magnesium Replacement Protocol 1 Each Misc) 1 each MISCELLANE DAILY PRN; Protocol PRN Reason: Per Protocol Naloxone HCl (Naloxone 0.4 Mg/Ml 1 Ml Vial) 0.2 mg IV Q2M PRN PRN Reason: Opioid Reversal Pantoprazole Sodium (Pantoprazole 40 Mg/10 Ml Vial) 40 mg IVP BID [facility] Last Admin: 12/08/23 08:54 Dose: 40 mg Past medical history to include: GERD Social history: . No smoking. Physical examination: VITAL SIGNS: 98.2, 87, 23, 128 x 64, 100% on the ventilator GENERAL: Sedated, right chest wall port EYES: Pupils equal. Conjunctiva edouard l. HEENT: External appearance of nose and ears normal, oral cavity-endotracheal tube. NG tube-low intermittent suction NECK: JVD unable to assess; masses not palpable. HEART: First and second heart sounds are normal; edema, present LUNGS: Respiratory rate increased, decreased breath sounds ABDOMEN: Soft, nontender, liver spleen not palpable, no masses palpable..jejunostomy tube-attached to tube feeding 20 cc an hour. RAYA drain. Incision with stitches PSYCH: Sedated INVESTIGATIONS, reviewed in the clinical context: December 07: White count 8.3 hemoglobin 7.6 platelets 104 sodium 133 potassium 4.2 BUN 32 creatinine 2.99 December 06: White count 18.7 hemoglobin 8.4 platelets 108 sodium 133 potassium 4 BUN 75 creatinine 2.95 December 05: White count 1.8 hemoglobin 7.9 platelets 107 sodium 130 potassium 3.9 BUN 92 creatinine 3.74 Small bowel resection [December 01]: Ischemic active enteritis with focal necrosis and perforation. Serosal fibrous adhesions. Viable margins. December 04: White count 10.2 hemoglobin 8 platelets 90 sodium 130 potassium 4 BUN 70 creatinine 2.89 Sputum culture: [November 25]: Citrobacter freundii. Pseudomonas aeruginosa November 20: White count 14.4 hemoglobin 8.8 platelets 229 potassium 4.1 BUN [address] scan abdomen [November 19] possible small bowel obstruction Stool: C. difficile negative November 16: White count 9.1 hemoglobin 7.9 platelets 259 potassium 4.3 creatinine 0.92 November 15: WBC 13 hemoglobin 7.7 platelets 248 potassium 4.3 creatinine 0.87 2D echo: EF 55 to 60%. November 14: White count 10.7 hemoglobin 7.5 platelets 239 potassium 4.2 creatinine 0.96 Kidneys bladder: Unremarkable November 13: White count 12 hemoglobin 6.9 platelets 276 potassium 4.4 creatinine 1.21 magnesium 1.8 iron 6 TIBC 365% saturation 1.64 transferrin 261 ferritin 34.6 B12 569 folate 4.4 November 11: Creatinine 0.86 EGD: Large amount of retained solid liquid food noted in the stomach. Large superficial gastric antral ulceration involving most of the antrum extending into the pylorus causing pyloric stenosis. Biopsies were obtained. Chest x-ray film personally reviewed by me-scattered infiltrates Assessment plan: -Aspiration pneumonitis bilateral from retained gastric contents mostly food and liquids, causing acute hypoxic respiratory failure: Subsequent sputum culture November 25: Citrobacter freundii, Pseudomonas aeruginosa IV meropenem Pulmonary following -Acute pulmonary edema and fluid overload from hypoalbuminemic state and fluids from IV.:: Has been getting Lasix and dialysis -Altered mentation. Possibly encephalopathy. Could be delirium. CT brain [December 06] nothing acute Neurology following EEG done today-pending results -Small l bowel perforation at site of jejunostomy tube tip with balloon..: Portion of small bowel resected. On November 24. New J-tube was placed.- drainage to gravity:-Now discontinued Trickle feeding at 10 cc an hour being tolerated -Acute kidney injury. Possible ATN from hypotensive shock: Slow to respond Renal ultrasound unremarkable. Started on renal replacement therapy on November 28. Followed by nephrology -Nutrition Jejunostomy tube placed November [address] Ewing Getting TPN. Trickle feeds through J-tube at 20 cc an hour -Acute recurrent atrial fibrillation-converted to sinus rhythm Received IV amiodarone. Cardiology following Lopressor -Acute hypoxic respiratory failure from aspiration pneumonia, status post ventilator assisted: Reintubated November 25. FiO2 35 PEEP of 5 -Septic shock, recovered -Hypertension Patient started on Cleviprex-discontinued -Intermittent hypotension Intermittent use of Levophed. 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 Also anemia of blood draw. Iron deficiency anemia Received 2 unit of blood. IV iron. -Severe thrombocytopenia. Would consider coagulation disorder secondary to infection., In the setting of underlying lymphoma.: Slow to respond Hematology following. -Acute blood loss anemia, Received 2 units of blood -GERD PPI -Acute diarrhea secondary to tube feeding.: Resolved C. difficile ruled out. -Large superficial gastric antral ulceration involving the gastric antrum extending into the pylorus with gastric outlet obstruction. 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 Port placed. For outpatient PET scan. -Full code at the bedside. Continue current treatment plan. Prognosis guarded. Past Medical History Past Medical History: GERD/Reflux History of Any Multi-Drug Resistant Organisms: None Reported Past Surgical History: Heart Catheterization Additional Past Surgical History / Comment(s): colonsocopy,spinal injection, Past Anesthesia/Blood Transfusion Reactions: No Reported Reaction Past Psychological History: No Psychological Hx Reported Smoking Status: Never smoker Past Alcohol Use History: None Reported Past Drug Use History: None Reported
[2023-12-09 00:12] LABS: Glucose,Whole Blood 303 mg/dL (70-110)
--- NOTE | 2023-12-09 00:44 | P.PN ---
Subjective Progress Note Date: 12/08/23 Patient was seen for a follow-up. Patient's was also present. Per nursing report, with sedation holiday, patient opens eyes, but does not follow commands, does not track. Does not even response to yes/no questions. Patient does move right arm sometimes. Patient starts desynchronized ventilation therefore has to be put back on Precedex. Patient currently on Precedex 0.6 g per program per hour. Objective - Vital Signs Vital signs: Vital Signs Temp 98.0 F 12/08/23 08:00 Pulse 75 12/08/23 11:28 Resp 35 H 12/08/23 11:00 BP 124/66 12/08/23 11:00 Pulse Ox 97 12/08/23 11:00 FiO2 35 12/08/23 11:21 Intake & Output 12/07/23 12/08/23 12/08/23 18:59 06:59 18:59 Intake Total 3041.463 1426.425 703.114 Output Total 5306 760 640 Balance -2264.537 666.425 63.114 Weight 104.5 kg Intake: IV 1086 1056 143 0.9 KVO 150 120 50 Normal Saline Pressure 36 36 18 Saline TPN 900 900 75 Intake, IV Titration 1325.463 280.425 55.114 Amount Dexmedetomidine/0.9% NaCl 195.257 173.879 55.114 (Pmx) 400 mcg In Empty Bag 1 bag @ 0.2 MCG/KG/HR 5.485 mls/hr IV .[id number] [facility] Rx#:[id number] Meropenem 1 gm In Sodium 100 Chloride 0.9% 100 ml @ 33 .333 mls/hr IVPB HS [facility] Rx#:[id number] Mvi, Adult No.4 with Vit 1084.5 K 10 ml Trace (Conc-1Ml/ Dose) 1 ml Sodium Acetate 60 meq Sodium Chloride 4Meq/ml Vial 52 meq Potassium Chloride 14 meq Calcium Gluconate 2.25 gm Magnesium Sulfate gm 0 .5 gm In Amino Acids 5 %/ Dextrose 20 % 1,000 ml @ 75 mls/hr IV .BY DURATION [facility] Rx#:[id number] Norepinephrine 8 mg In 45.706 6.546 Sodium Chloride 0.9% 250 ml @ 0.03 MCG/KG/MIN 6. 368 mls/hr IV .Q24H [facility] Rx#:[id number] Tube Feeding 110 90 70 TPN/PPN 375 TPN 375 Hemodialysis 400 Other 120 60 Output: Gastric Drainage 50 Drainage 120 80 Right Abdomen 120 80 Urine 735 680 640 Stool 1 Hemodialysis 2400 Hemodialysis Net Amount 2000 Other: Voiding Method Indwelling Catheter Indwelling Catheter Indwelling Catheter ABP, PAP, CO, CI - Last Documented Arterial Blood Pressure 175/67 - Exam On examination patient is laying in the bed. Patient is intubated, sedated with Precedex 0.6 g per program per hour. Patient does not respond to painful stimuli. Pupils are equal, round and reacting. Oculocephalics is slightly present. Corneals are present. Patient is breathing over the ventilator. Rest of the examination is unchanged. Patient sometimes move his right arm, also moves his head [id number]. Patient very encephalopathic. - Labs CBC & Chem 7: 12/08/23 04:50 12/08/23 04:50 Labs: Abnormal Lab Results - Last 24 Hours (Table) 12/07/23 12/07/23 12/07/23 Range/Units 17:55 20:58 23:23 WBC (3.8-10.6) k/uL RBC (4.30-5.90) m/uL Hgb (13.0-17.5) gm/dL Hct (39.0-53.0) % RDW (11.5-15.5) % Plt Count (150-450) k/uL Neutrophils # (1.3-7.7) k/uL Lymphocytes # (1.0-4.8) k/uL ABG pH (7.35-7.45) ABG HCO3 (21-25) mmol/L ABG Total CO2 (19-24) mmol/L ABG O2 Saturation (94-97) % Hemoglobin (13.0-17.5) gm/dL Sodium (137-145) mmol/L BUN (9-20) mg/dL Creatinine (0.66-1.25) mg/dL Glucose (74-99) mg/dL POC Glucose (mg/dL) 213 H 225 H 247 H (70-110) mg/dL Calcium (8.4-10.2) mg/dL Phosphorus (2.5-4.5) mg/dL 12/08/23 12/08/23 12/08/23 Range/Units 00:15 04:50 04:50 WBC 19.3 H (3.8-10.6) k/uL RBC 2.67 L (4.30-5.90) m/uL Hgb 7.6 L (13.0-17.5) gm/dL Hct 22.9 L (39.0-53.0) % RDW 20.4 H (11.5-15.5) % Plt Count 104 L (150-450) k/uL Neutrophils # 17.8 H (1.3-7.7) k/uL Lymphocytes # 0.9 L (1.0-4.8) k/uL ABG pH 7.47 H (7.35-7.45) ABG HCO3 27 H (21-25) mmol/L ABG Total CO2 28 H (19-24) mmol/L ABG O2 Saturation 97.7 H (94-97) % Hemoglobin 7.4 L (13.0-17.5) gm/dL Sodium 133 L (137-145) mmol/L BUN 72 H (9-20) mg/dL Creatinine 2.99 H (0.66-1.25) mg/dL Glucose 316 H (74-99) mg/dL POC Glucose (mg/dL) (70-110) mg/dL Calcium 7.2 L (8.4-10.2) mg/dL Phosphorus 4.6 H (2.5-4.5) mg/dL 12/08/23 12/08/23 Range/Units 05:58 12:03 WBC (3.8-10.6) k/uL RBC (4.30-5.90) m/uL Hgb (13.0-17.5) gm/dL Hct (39.0-53.0) % RDW (11.5-15.5) % Plt Count (150-450) k/uL Neutrophils # (1.3-7.7) k/uL Lymphocytes # (1.0-4.8) k/uL ABG pH (7.35-7.45) ABG HCO3 (21-25) mmol/L ABG Total CO2 (19-24) mmol/L ABG O2 Saturation (94-97) % Hemoglobin (13.0-17.5) gm/dL Sodium (137-145) mmol/L BUN (9-20) mg/dL Creatinine (0.66-1.25) mg/dL Glucose (74-99) mg/dL POC Glucose (mg/dL) 334 H 264 H (70-110) mg/dL Calcium (8.4-10.2) mg/dL Phosphorus (2.5-4.5) mg/dL Assessment and Plan Assessment: * Altered mental status, likely due to toxic metabolic encephalopathy, severe * Abnormal EEG. * Aspiration pneumonitis from retained gastric contents * Ventilator dependent respiratory failure * Pulmonary edema * History of small bowel perforation at the site of jejunostomy tube tip with b alloon * Acute kidney injury * Acute recurrent atrial fibrillation * Septic shock, recovered * Hypertension * Anemia * Thrombocytopenia, improving Plan: * Stat EEG was performed today. It revealed generalized slowing of severe degree. This is suggestive of generalized cerebral dysfunction as can be seen with toxic metabolic encephalopathy or related to diffuse structural brain about a day. Clinical correlation is recommended. Sporadic, periodic generalized sharp-appearing waves were seen. This may suggest underlying cortical irritability. No electrographic seizure was recorded. * Patient to be empirically started on Keppra 500 mg daily. Suggest repeating EEG in 1-2 days. * CT head performed 12/07/2023 revealed no acute intracranial process. Some atrophy. I personally reviewed CT head agree with the findings. * Patient is generalized weak. Patient has been ICU for extended period of time. At risk for critical illness myopathy. * For medical management as per critical care and other specialties on board. * Discussed with patient's . * Dr. Vladimir Jimenez to resume neurology service from the morning.
--- NOTE | 2023-12-09 02:25 | EEG ---
ELECTROENCEPHALOGRAM REPORT PREAMBLE: This is a 73-year-old male with altered mental status. EEG FINDINGS: This is a 21-channel digital EEG recorded with video component, utilizing 10/20 international system with referential and bipolar montages. Background consists of poorly developed and regulated, diffuse, moderate amplitude 2-3 hertz delta, mixed with some theta activity seen in bihemispheric region. Background does not seem to be reactive to manual eye opening or closing. Photic driving response was not seen. Sporadic, intermittent, generalized, some sharply contoured waves were seen during the study. Different stages of sleep were not seen. No electrographic seizure was recorded. IMPRESSION: 1. This is an abnormal EEG due to diffuse background slowing of severe degree. This is suggestive of generalized cerebral dysfunction as can be seen with toxic metabolic encephalopathy or related to diffuse structural brain abnormality. Clinical correlation is recommended. 2. Presence of sporadic but intermittent, some higher amplitude, sharply contoured waves in generalized distribution, mainly bifrontal. This may suggest underlying cortical irritability. Triphasic waves also in differential. Recommend followup EEG as clinically indicated. MMODL / IJN: [id number] / [facility]
[2023-12-09 04:33] LABS: Glucose,Whole Blood 241 mg/dL (70-110)
[2023-12-09 04:34] LABS: ABG Base Excess 2.7 mmol/L; ABG HCO3 27 mmol/L (21-25); ABG Oxygen Saturation 98.6 % (94-97); ABG PCO2 36 mmHg (35-45); ABG PH 7.47 (7.35-7.45); ABG PO2 100 mmHg (83-108); ABG TCO2 28 mmol/L (19-24)
[2023-12-09 04:45] LABS: Anisocytosis Moderate; Basophils % (A) 0 %; Eosinophils % (A) 0 %; HGB 7.2 gm/dL (13.0-17.5); Hypochromasia Slight; Lymphocytes # (A) 1.1 k/uL (1.0-4.8); Lymphocytes % (A) 5 %; MCH 27.7 pg (25.0-35.0); MCHC 32.6 g/dL (31.0-37.0); Mean Platelet Volume 10.4; Microcytosis Slight; Monocytes # (A) 0.7 k/uL (0-1.0); Monocytes % (A) 4 %; Neutrophils # (A) 19.5 k/uL (1.3-7.7); Neutrophils % (A) 91 %; Platelet Count 126 k/uL (150-450); RBC 2.59 m/uL (4.30-5.90); RDW 20.5 % (11.5-15.5); WBC 21.5 k/uL (3.8-10.6)
[2023-12-09 04:56] LABS: African American GFR (CKD) 19 (>60 ml/min/1.73 sqM); Anion Gap 6 mmol/L; Blood Urea Nitrogen 98 mg/dL (9-20); Calcium 7.5 mg/dL (8.4-10.2); Carbon Dioxide 26 mmol/L (22-30); Chloride 102 mmol/L (98-107); Glucose 229 mg/dL (74-99); Non-African American GFR(CKD) 16 (>60 ml/min/1.73 sqM); Potassium 4.1 mmol/L (3.5-5.1); Sodium 134 mmol/L (137-145)
--- NOTE | 2023-12-09 08:14 | P.PN ---
Subjective Patient is seen in follow-up for acute kidney injury. Patient underwent exploratory laparotomy with small bowel obstruction NG tube replacement Sep 2023. Off vasopressors currently. Intubated. Receiving TPN. Tube feeds held this morning. Nonoliguric. Started on hemodialysis November 29, 2023. Tracheostomy being considered. Vital signs stable. Off vasopressors. General: Resting in bed. HEENT: Intubated. LUNGS: Scattered rhonchi. HEART: Irregular rate and rhythm. ABDOMEN: No drainage. EXTREMITITES: 1+ edema. Objective - Vital Signs Vital signs: Vital Signs Temp 98.5 F 12/09/23 06:00 Pulse 64 12/09/23 07:51 Resp 21 12/09/23 07:00 BP 117/72 12/09/23 07:00 Pulse Ox 96 12/09/23 07:00 FiO2 35 12/09/23 07:29 Intake & Output 12/08/23 12/09/23 12/09/23 18:59 06:59 18:59 Intake Total 6431.899 7029.310 85 Output Total 995 1290 250 Balance 448.095 27.310 -165 Weight 103.6 kg Intake: IV 221 129 10 0.9 KVO 110 120 10 Normal Saline Pressure 36 9 Saline TPN 75 Intake, IV Titration 117.095 228.310 Amount Dexmedetomidine/0.9% NaCl 117.095 221.941 (Pmx) 400 mcg In Empty Bag 1 bag @ 0.2 MCG/KG/HR 5.485 mls/hr IV .[id number] [facility] Rx#:[id number] Norepinephrine 8 mg In 6.369 Sodium Chloride 0.9% 250 ml @ 0.03 MCG/KG/MIN 6. 368 mls/hr IV .Q24H [facility] Rx#:[id number] Tube Feeding 190 60 TPN/PPN 825 900 75 TPN 825 900 75 Other 90 Output: Drainage 30 50 Right Abdomen 30 50 Urine 965 1240 250 Other: Voiding Method Indwelling Catheter Indwelling Catheter # Bowel Movements 1 ABP, PAP, CO, CI - Last Documented Arterial Blood Pressure 115/56 - Labs CBC & Chem 7: 12/09/23 04:30 12/09/23 04:30 Labs: Abnormal Lab Results - Last 24 Hours (Table) 12/08/23 12/08/23 12/08/23 Range/Units 04:50 12:03 17:27 WBC (3.8-10.6) k/uL RBC (4.30-5.90) m/uL Hgb (13.0-17.5) gm/dL Hct (39.0-53.0) % RDW (11.5-15.5) % Plt Count (150-450) k/uL Neutrophils # (1.3-7.7) k/uL ABG pH (7.35-7.45) ABG HCO3 (21-25) mmol/L ABG Total CO2 (19-24) mmol/L ABG O2 Saturation (94-97) % Hemoglobin (13.0-17.5) gm/dL Sodium (137-145) mmol/L BUN (9-20) mg/dL Creatinine (0.66-1.25) mg/dL Glucose (74-99) mg/dL POC Glucose (mg/dL) 264 H 257 H (70-110) mg/dL Calcium (8.4-10.2) mg/dL Procalcitonin 3.07 H (0.02-0.50) ng/mL 12/09/23 12/09/23 12/09/23 Range/Units 00:10 04:30 04:30 WBC 21.5 H (3.8-10.6) k/uL RBC 2.59 L (4.30-5.90) m/uL Hgb 7.2 L (13.0-17.5) gm/dL Hct 22.0 L (39.0-53.0) % RDW 20.5 H (11.5-15.5) % Plt Count 126 L (150-450) k/uL Neutrophils # 19.5 H (1.3-7.7) k/uL ABG pH (7.35-7.45) ABG HCO3 (21-25) mmol/L ABG Total CO2 (19-24) mmol/L ABG O2 Saturation (94-97) % Hemoglobin (13.0-17.5) gm/dL Sodium 134 L (137-145) mmol/L BUN 98 H (9-20) mg/dL Creatinine 3.57 H (0.66-1.25) mg/dL Glucose 229 H (74-99) mg/dL POC Glucose (mg/dL) 303 H (70-110) mg/dL Calcium 7.5 L (8.4-10.2) mg/dL Procalcitonin (0.02-0.50) ng/mL 12/09/23 12/09/23 Range/Units 04:31 04:32 WBC (3.8-10.6) k/uL RBC (4.30-5.90) m/uL Hgb (13.0-17.5) gm/dL Hct (39.0-53.0) % RDW (11.5-15.5) % Plt Count (150-450) k/uL Neutrophils # (1.3-7.7) k/uL ABG pH 7.47 H (7.35-7.45) ABG HCO3 27 H (21-25) mmol/L ABG Total CO2 28 H (19-24) mmol/L ABG O2 Saturation 98.6 H (94-97) % Hemoglobin 7.1 L (13.0-17.5) gm/dL Sodium (137-145) mmol/L BUN (9-20) mg/dL Creatinine (0.66-1.25) mg/dL Glucose (74-99) mg/dL POC Glucose (mg/dL) 241 H (70-110) mg/dL Calcium (8.4-10.2) mg/dL Procalcitonin (0.02-0.50) ng/mL Assessment and Plan Plan: Assessment: 1. Acute kidney injury secondary to ATN secondary to septic shock. Creatinine 0.86 on admission and up to 5.38 dated November 29, 2023. Urine output improved, now nonoliguric. UA fairly benign. No hydronephrosis noted on imaging. Started on hemodialysis November 29, 2023 due to volume overload. Patient initially had a right femoral catheter placed which subsequently became occluded and a left femoral catheter was placed December 06, 2023. 2. Perforated small bowel status post exploratory laparotomy with abdominal washout, small bowel resection and J-tube replacement November 25, 2023. 3. A-fib with RVR. s/p amiodarone drip. Also received digoxin this admission. 4. Recently diagnosed gastric B-cell lymphoma. 5. Septic shock. Likely abdominal source. On IV antibiotics. Off vasopressors now. 6. Hypocalcemia secondary to acute kidney injury. Replaced. Improved. 7. Metabolic acidosis secondary to acute kidney injury. Improved. 8. Volume overload. Plan: Hemodialysis today. Plan again tomorrow mostly for ultrafiltration. Maintain IV Lasix. Receiving TPN. Tube feeds were held this morning. Avoid nephrotoxins. Preserved EF noted on echocardiogram. Wean FiO2. Case discussed at length with patient's family present at bedside. Tracheostomy being considered.
--- NOTE | 2023-12-09 08:17 | XR ---
EXAMINATION TYPE: XR chest 1V portable DATE OF EXAM: 12/09/2023 COMPARISON: 12/08/2023 HISTORY: SOB, Follow Up FINDINGS: Indwelling tubes and catheters are unchanged. Right-sided pleural effusion with underlying atelectasis and/or infiltrate essentially unchanged. Stable appearance of the cardio-mediastinal structures at this time. Pleural effusion unchanged. IMPRESSION: 1. Stable portable chest. Clinical correlation and follow up until resolution is recommended. [facility], , 12/09/2023 8:15 AM
[2023-12-09 11:08] LABS: Glucose,Whole Blood 147 mg/dL (70-110)
--- NOTE | 2023-12-09 13:38 | P.PN ---
Subjective Progress Note Date: 12/09/23 This is a 73-year-old white male with history of chronic abdominal pain for the last 8 months has been treated with Protonix 40 mg daily for the last 3 months with no improvement. Patient had a 22 pound weight loss in the last [address] of the abdomen and pelvis 3 weeks ago showed thickening of the antral wall with pathological adenopathy posterior to the stomach suspicious of neoplasm. Today the patient underwent elective upper endoscopy to evaluate further, patient received IV sedation by anesthesia endoscope was inserted into the mouth, esophagus was intubated without any difficulty there was evidence of large amount of liquid and solid food noted in the stomach suggestive of gastric outlet obstruction. Scope could not be advanced through the pylorus, however in the prepyloric area there was a large superficial ulceration identified with multiple biopsies were done from this area. The body cardia and fundus could not adequately visualize because of large amount of retained food in the stomach. Scope was withdrawn back to the stomach and upon careful examination the mucosa of the antrum body and cardia as well as the fundus appeared normal. Procedure was being performed and biopsies were done patient threw up and subsequently became hypoxic there was clearly evidence of witnessed aspiration anesthesia intubated the patient, procedure was terminated, and the patient was transferred to the ICU, this consult was initiated. Patient is now on assist- control rate of 20 tidal volume 500 FiO2 70% PEEP of 10 ABG is pending, earlier ABG showed profound hypoxia patient is on propofol at 50 mcg/kg/min, next ABG is pending. Chest x-ray showed chronic changes without evidence of acute pulmonary disease. Patient was seen and examined today on 11/13/2023, remains in the ICU, intubated mechanically ventilated, on assist-control rate of 20 tidal volume 500 FiO2 50% and PEEP of 10 ABG showed a pO2 of 143 pCO2 47 pH of 7.28 hence PEEP was cut down to 6, and increased rate to 22. Patient is still requiring IV fluid at 100 cc/h/LR. Requiring norepinephrine at 0.08 mcg/kg/min he is also on propofol at 50 mg/kg/min antibiotics arce patient is receiving Zosyn. Chest x-ray is damion wing worsening infiltrates specially in the left lung. This could be related to aspiration pneumonia. Patient had witnessed aspiration during endoscopy/upper endoscopy.WBC count is 14 hemoglobin 7.6 basic metabolic profile is normal BUN is 26 creatinine 1.57 obviously the patient sustained some acute kidney injury baseline creatinine 0.86 patient had received fluids over the last 24 hours, remains on fluids at 100 cc/h Patient with seen and examined today on 11/14/2023, patient remains in the ICU, intubated and mechanically ventilated. Failed weaning trial yesterday and he became quite agitated and desaturated once he went off propofol. Had to be placed back on assist-control mode of mechanical ventilation and sedation. Today the patient is on assist-control rate of 22 tidal volume 500 FiO2 50% PEEP of 6. ABG showed a pO2 of 123 pCO2 51 pH of 7.32, and I cut down his FiO2 down to 45%, patient is receiving a unit of packed RBCs for hemoglobin of 6.9 today. Patient had an episode of A-fib RVR at 3 AM in the morning, seen by cardiology, and recommended patient goes on amiodarone. Still requiring norepinephrine at 0.05 mg/kg/min, he is on LR at 100 cc/h propofol at 50 mg/kg/min. Remains empirically on Zosyn for aspiration pneumonia. My plan today is transitioning the patient to Precedex, hopefully discontinue propofol, and at least give the patient a decent weaning trial or at least check weaning parameters before we proceed to weaning trial. Chest x-ray continues to show evidence of pneumonia mostly in the left lung and left lower lobe more specifically. Some pulmonary vascular congestion is noted with interstitial edema, small pleural effusion is also noted/left side. WBC count today is 12 hemoglobin 6.9 basic metabolic profile is normal bicarb is 25, BUN is 25 creatinine is improving down to 1.21 from 1.57 yesterday Patient was evaluated today on 11/15/2023, patient remains in the ICU, he was extubated yesterday, and his extubation was relatively uneventful. However the patient continues to have nasogastric tube in place, his pathology report came back showing non-Hodgkin's lymphoma, patient has gastric outlet obstruction, and the recommendation by GI is to consult surgery for a jejunostomy tube which is appropriate. Patient will be seen today by oncology and he will be seen by general surgery. In the meantime patient is comfortable, he is on 5 L nasal cannula he has LR running at 100 cc/h, he is remains on Zosyn for aspiration pneumonia remains on amiodarone which was started by cardiology for atrial fibrillation with RVR, presently in sinus rhythm. Cannot switch him to oral because of the fact that remains n.p.o., patient remains on TPN. WBC count is 10.7 hemoglobin 7.5 electrolytes are normal renal profile is normal, creatinine normalized to 0.96 Patient was evaluated today on 11/16/2023, remains in the ICU, on 5 L nasal cannula remains on amiodarone at 0.5 mg/min remains on LR at 100 cc/h, however his chest x-ray is showing some component of interstitial edema or could be findings related to his recent episode of aspiration/aspiration pneumonia, nonetheless the patient seems to be a bit symptomatic, he has intermittent cough and wheezing, I am recommending Lasix 40 mg IV push, cut down his IV fluid to 50 cc/h, continue Zosyn, patient will be placed on DuoNeb updrafts and on Solu- Medrol. Patient is scheduled to have jejunostomy-tube placement today. WBC count is 13 hemoglobin 7.7 basic metabolic profile is normal and renal profile is normal Patient was evaluated today on 11/17/2023, patient underwent uneventful placement of a jejunostomy tube yesterday, in the ICU on 5 L, patient is relatively stable, not in any distress, patient continues to have nasogastric tube in place although he did have a J-tube placed yesterday. Patient was seen by oncology for his non-Hodgkin's lymphoma involving the gastric outlet. Today's x-ray showed evidence of pneumonia/bilateral interstitial infiltrate/edema patient was given a dose of Lasix, I reminded the patient had an aspiration episode which was significant. And he required intubation mechanical ventilation for a few days.WBC count today is 9.1 hemoglobin 7.9 electrolytes are normal renal profile is normal hence I plan to transfer the patient out of the ICU to a cardiac floor. And hopefully discharge planning in the next 2 days for The patient was seen today November 18, 2023 in follow-up in the intensive care unit. He is currently sitting up in bed. Awake and alert in no acute distress. He is maintaining O2 saturations in the 90s on 5 L/min per nasal cannula. Glucose 177. Remains on DuoNeb inhalations and Solu-Medrol. Antibiotics in the form of Zosyn. He has a J-tube in place. He was initiated on vital AF 1.2 at 10 mL an hour with a goal of 82 mL/h The patient is seen today November 19, 2023 in follow-up in the intensive care unit. He is a regular medical floor overflow patient. He is currently sitting up in a chair. Awake and alert in no acute distress. He is maintaining O2 saturations in the 90s on 5 L/min per nasal cannula. No IV fluids. He denies any worsening shortness of breath, cough or congestion. He is having some issues with diarrhea. He remains on Zosyn. He is receiving vital AF at 55 mL/h with a goal of 82 mL/h. Glucose 161. Solu-Medrol, DuoNeb inhalations. The patient is seen today November 20, 2023 in follow-up on the regular medical floor. He is currently up in a chair at the bedside. Awake and alert in no acute distress. Denies any worsening shortness of breath, cough or congestion. He is maintaining O2 saturation in the 90s on 3 L/min per nasal cannula. He continues on Zosyn. Continues on bronchodilators and steroids. White count 12.3. Hemoglobin 9.0. Platelets 258. Glucose 168. He is not tolerating his tube feeds as he has developed diarrhea. C. difficile screen was negative. Abdominal series revealed cardiomegaly with left basilar acute infiltrate and/or atelectasis. Overall nonspecific bowel gas pattern. A small bowel obstruction needs to be considered. Progress note dated November 21, 2023. The patient is seen in room 517. The patient is currently on 3 L of oxygen. He continues on Zosyn. His biggest complaint has been abdominal discomfort and diarrhea. He did have a CT scan of the abdomen and pelvis. Current laboratory data includes a white count of 14.4, hemoglobin 8.8, hematocrit 28.7, and platelet count 229,000. Sodium 139, potassium 4.1, chlorides 103, CO2 30, BUN 42, creatinine 0.94. Glucose is 158. Calcium is 8.5. Progress note dated November 22, 2023. 73-year-old male seen in room 517. He currently is on 2 L of oxygen. Room air saturation was 89%. Chest CT shows bilateral patchy infiltrates. He continues on Zosyn. He is still not taking anything by mouth. No new laboratory data today other than a glucose of 138. Gram stain was negative. Progress note dated November 23, 2023. 73-year-old male seen in room 517. He is resting comfortably without complaints. He continues on saline at 10 cc an hour, tube feedings with Pivot at 20 cc an hour, Zosyn, and 2 L by nasal cannula. He has had an uneventful night. Laboratory data today includes a white count 14.5, hemoglobin 9.7, hematocrit 31.4, and a platelet count of 242,000. Sodium 138, potassium 3.7, chlorides 106, CO2 26, BUN 39, creatinine 0.95. Glucose is 181. Calcium is 8.5. Sputum sampling was negative. Progress note dated November 24, 2023. 73-year-old male who is seen in room 517. The patient has been having significant abdominal discomfort, and went for a evaluation, ordered by surgery today, to determine whether or not the feeding tube, was in proper position, and whether or not there is anything acutely going on in the abdomen. He had been having diarrhea. He is on 3 L of oxygen. He has been here for 12 days. This is a patient, that had a prior EGD, aspirated, because of gastric outlet obstruction, and was diagnosis of non-Hodgkin's lymphoma. He is currently on Zosyn, DuoNebs, and Solu-Medrol. He has been NPO. Chest x-ray showed a left lower lobe infiltrate. Abdominal x-ray showed multiple air-fluid levels. CT of the abdomen showed multiple dilated small bowel loops, consistent with obstruction, pneumoperitoneum, ascites, and cholelithiasis. White count was 14.1, hemoglobin 8.9, hematocrit 29.5, and platelet count was 255,000. Glucose was 143. 11/25/2023, the patient is being seen in the intensive care unit. The patient is critically ill, n.p.o., he has an NG tube in place. Following the NG tube insertion, there was a total of 2.0 L of output and the patient's J-tube was also draining approximately 200 cc over the past 8 hours. Continues to have abdominal pain which is rather diffuse and the patient has direct abdominal tenderness. CAT scan of the abdomen was noted and was consistent with small bow el obstruction. The patient has a stomach that was inflated and in the same time there were multiple loops of small bowel distended with fluid. This extended to the pelvis. J-tube with contrast nondilated small bowel loops within the mid abdomen. Additional loops of small bowel were seen that was dilated. There was some contrast in the right lower quadrant and contrast was also in the cecum. No transition point was identified. The dilated loops of the bowel appeared to be in the proximal jejunum and distal to the duodenum. General surgery is on the case the patient will be taken to the operating room for another exploratory laparotomy. Noted the CAT scan of the abdomen also showed pneumoperitoneum and small amount of ascites and cholelithiasis. Hemodynamically, the patient is currently on normal saline at rate of 75 cc an hour. He is hypotensive and is going to be started on pressors. He is on 4 L of oxygen by nasal cannula. He also has sustained acute kidney injury. Blood work from today shows a rise in the creatinine which is currently up to 2.5 with a BUN of 57. Serum bicarb is at 14 with an anion gap of 11. The patient WBC count is at 8.2 with a hemoglobin of 12.3 and a platelet count of 188. Chest x- ray from this morning is showing a right-sided port and a stable left lung airspace disease and an NG tube being in place. The patient remains on IV Zosyn. The patient is receiving Dilaudid for pain control. The patient remains on IV Solu-Medrol 60 mg every 6 hours. It was noted that the patient's surgical wound over the port has dehisced and there is some serous drainage and erythema at the incision site. Awake and alert and communicating. Family at the bedside. No apparent signs of respiratory distress at this point. 11/26/2023, the patient is being seen in follow-up. Events from yesterday was noted and the patient was taken to the operating room for exploratory laparotomy. The patient was found to have large amount of free fluid noted in the abdomen and there was significant contamination. There was perforation of the small bowel with the balloon of the previously inserted jejunostomy tube penetrating through the perforation. As such, the tube was removed, abdominal washout was done. Small bowel resection was done and the patient had a nodular jejunostomy tube inserted. Postop, the patient was extubated he was unable to tolerate extubation and the patient was kept intubated on mechanical ventilator and he was brought back to the intensive care unit. He is currently postop day #1 following his small bowel resection. Abdominal surgical wound site is dry clean and intact. This morning, the patient remains sedated on propofol which is currently running at 35 mcg/kg/min. He is on assist-control mode of mechanical ventilation at rate of 28, tidal volume of 550, FiO2 of 60% with a PEEP of 5. Blood gas from today shows a pH of 7.35 with a pCO2 44 and pO2 of 88. Chest x-ray shows adequate positioning of the orotracheal tube. The patient has a Mediport on the right and a subclavian triple-lumen catheter on the left and the patient has persistent bilateral pleural effusion and infiltrates in lung base bilaterally. Hemodynamically, the patient remains in shock. He has been on high-dose norepinephrine which is currently running at 0.28 mcg/kg/min and the patient is also on vasopressin at 0.03 units an hour. He is IV fluids are in the form of bicarb infusion running at rate of 150 cc an hour. He is in sinus tachycardia. NG tube output has been 250 cc over the past 8 hours and the output from the J-tube is minimal at this point in time. Urine output is quite diminished as the patient has also sustained acute kidney injury. Overall fluid balance is +4.9 L over the past 24 hours. The patient's white cell count of 5.7 with a hemoglobin 9.9 and platelet count of 172. BUN is 72 with a creatinine of 2.8 and sodium levels at 143. The calcium level is at 6.5. LFTs are normal. Triglyceride level is at 315. On 11/27/2023, the patient remains critically ill. Remains intubated and on mechanical ventilator, still awaiting shock which is essentially septic shock. Remains on propofol which is running at 50 mcg/kg/min. Remains on the mechanical ventilator, assist-control mode with rate of 28, tidal volume of 550 with an FiO2 of 60% with a PEEP of 5. Blood gas shows a pH of 7.29 with a pCO2 of 47 and pO2 of 78. The patient had a follow-up chest x-ray that showed lower lobe consolidation slightly worse on the right and the orotracheal tube is in a good location. Urine output is diminished in the order of 5 to 10 cc an hour and the patient is also developing progressive worsening renal function. Remains on normal citrate of 150 cc an hour and the patient was started on TPN which is running at 30 cc an hour. He has a triple-lumen catheter in his left subclavian. Overall fluid balance over the past 24 hours is +3.9 L. Output from the NG tube and the J-tube is minimal. Hemodynamically, he is hypotensive and norepinephrine running at 0.45 mcg/kg/min. Vasopressin is a physiologic dose. He received amiodarone and he remains on maintenance amiodarone of 0.5 mg/min and the patient continues to be in atrial fibrillation and is having episodes of tachycardia. The white cell count is at 13, hemoglobin 9.4 platelet count is pending. The patient's BUN is 83 with a creatinine of 3.7. Sodium is at 140 with a potassium level of 5.5 dropped down to 4.4 as the sample was hemolyzed. LFTs are normal. Abdominal wound is dry clean and intact. RAYA drainage is essentially serous at this point in time. 11/28/2023, the patient is being seen for a follow-up. The patient remains intu bated on mechanical ventilator. This morning, the patient tolerated propofol drip running at 50 mcg/kg/min. The patient is on mechanical ventilator assist- control mode with rate of 28, tidal volume of 550, FiO2 55% with a PEEP of 5. Chest x-ray shows stable findings with lower lobe consolidations bilaterally. Blood gas shows a pH of 7.32 with a pCO2 38 and pO2 90. Neuropathy has improved and the patient is producing approximately 30 cc an hour and the overall input output balance is +3.3 L over the past 24 hours. The patient is still on pressors although his pressor requirements have improved since yesterday. He is on norepinephrine which is running at 0.05 mcg/kg/min and vasopressin physiologic dose. Also, the patient on amiodarone drip regarding his chronic ongoing atrial fibrillation. Amiodarone drip is running at 0.5 mg/min. Nevertheless, the rate is under much better control. Noted the patient was given a dose of digoxin 0.5 mg IV yesterday which helped with rate control. Remains on normal citrate of 150 cc an hour. Remains on TPN at 40 cc an hour. Output from the J-tube is fecal. Output from the NG tube is more gastric. Surgical wound site is dry clean and intact. Sputum Gram stain and culture showing Pseudomonas and Citrobacter. Note that the Citrobacter was intermediate resistance to Zosyn. This will be discussed further with infectious disease. Blood cultures are still pending for now. They have negative based on the most recent check. Blood work from today shows WBC count 11.2, hemoglobin 7.9 and platelet count of 46. Sodium is at 140, potassium is at 4.3, chloride is 114 with a bicarb of 18. He has 93 and the creatinine is 4.8. Serum random vancomycin level is at 25.7. On 11/29/2023, the patient is being seen for a follow-up. Remains intubated on the mechanical ventilator. The patient sedated on propofol which is running at 35 mcg/kg/min. Synchronous with mechanical ventilator. On today's evaluation, he is on assist-control mode with rate of 28, tidal volume of 550, FiO2 55% with a PEEP of 5. Chest x-ray shows lower lobe consolidation bilaterally worse on the right and the orotracheal tube is in good location. The blood gas showed a pH of 7.34 with a pCO2 of 35 and a pO2 of 84. No significant orotracheal secretions. Hemodynamically improved compared to yesterday. In fact, the patient is on minimal norepinephrine that was discontinued earlier this morning. The patient has converted to normal sinus rhythm. Remains on amiodarone at 0.5 mg/min. Overall fluid balance over the past 24 hours is 2.4 L positive. Urine output has been adequate and the patient is currently on IV Lasix. Nevertheless, the patient has developed progressive worsening renal function. Creatinine is up to 5.3 on today's evaluation with a potassium level of 4.4. Serum bicarb is at 18 with an anion gap of 9. WBC count is at 8.1 with a hemoglobin of 7 and a platelet count of 32 which has dropped compared to earlier evaluation. The rest of the coagulation profile was normal from 11/28/2023. Fibrinogen level is slightly elevated. Sputum samples have shown a combination of Citrobacter and Pseudomonas aeruginosa. Based on cultures and sensitivities, the patient will be taken off his IV Zosyn and he will be switched to IV merop enem. Output from the J-tube is fecal. Output from the NG tube is gastric and surgical wound site is dry clean and intact. He is afebrile for now. Hemodynamically, the patient is doing better. He remains on TPN for nutritional support. IV fluids are also running at a rate of 75 cc an hour. Remains on vancomycin. 11/30/2023, the patient is being seen for a follow-up. The patient remains on propofol at 50 mcg/kg/min. Ventilator settings are essentially unchanged. The patient remains on assist-control mode with rate of 18, tidal volume of 400, FiO2 50% with a PEEP of 5. The blood gas showed a pH of 7.37 with a pCO2 of 43 and pO2 of 127. Chest x-ray shows no significant interval change. Patient remains on normal saline at rate of 75 cc an hour and TPN at rate of 35 cc an hour. Fluid balance is positive. Hemodialysis was performed yesterday and the second session of hemodialysis to be done today. The patient's urine output is in the order of 20 to 30 cc an hour. The patient has an NG output of 350 cc for yesterday and the drainage from the J-tube is in the order of 400 cc over the past 24 hours. The blood work shows a WBC count of 10.8, hemoglobin 8.1 and platelet count of 41. Platelet counts are essentially stable and slightly improved compared to yesterday. The sodium level is at 133, potassium is at 4.3, BUN is 93 with a creatinine of 3.6. LFTs are within normal limits. Albumin is down to 2.1. The patient is currently on no pressors. Norepinephrine and vasopressin are both discontinued and the patient remains in normal sinus rhythm. No other significant events overnight. Family has been updated on his condition. Antibiotic coverage is currently with IV meropenem. Vancomycin and Zosyn have been both discontinued. On 12/01/2023, the patient remains sedated on propofol which is running at 25 mcg/kg/min., Comfortable and synchronous mechanical ventilator. The patient remains on assist-control mode rate of 28, tidal volume of 550, FiO2 40% and PEEP of 5. Blood gas shows a pH of 7.49 with a pCO2 of 34 and pO2 of 121. Patient underwent hemodialysis yesterday. No plans for hemodialysis today the patient is producing urine output. Remains on TPN for nutrition support rate of 75 cc an hour. IV fluids are currently at KVO. The chest x-ray from today shows bilateral lower lobe consolidation worse on the right. No significant change in the volume status. The patient continues to have third spacing and edema in all 4 extremities. Nevertheless, urine output is adequate at this point in time and the patient remains on Lasix 80 mg IV every 12 hours. Remains NPO. NG tube and J-tube are both drainage. Output is noted. Remains on IV meropenem. Afebrile. Currently on no pressors. Blood work shows a WBC count of 11.4, hemoglobin of 8.1 and platelet count of 46. Sodium is at 131, potassium level is at 3.7, chloride 101 and bicarb is at 24. BUN is 84 with a creatinine of 3.6. Glucose of 228. LFTs are within normal limits. Patient was reevaluated today on 12/02/23, patient remains in the ICU, patient is familiar to my service, I saw this patient 3 weeks ago. Since then he had a very complicated hospital course, related to his jejunostomy tube dislodging and leaking and picture of abdominal sepsis and worsening pneumonia/ARDS. Patient had to be placed back on mechanical ventilation, and he is now intubated and mechanically ventilated. He is on assist-control rate of 20 tidal volume 550 FiO2 40% PEEP of 5 ABG showed a pO2 of 111 pCO2 38 pH of 7.43 and I cut down his FiO2 to 35% and increase his flow rate from 60-70. Patient remains on TPN at 75 cc/h he is on propofol at 25 mcg/kg/min patient is on Cleviprex which I added today for elevated blood pressure. Receiving Lasix 80 mg every 12 hours is also on Merrem as per infectious disease. Patient is on hemodialysis and being followed by nephrology. Patient required multiple abdominal surgeries since his initial admission. Chest x-ray continues to show worsening pneumonia involving both lungs, right more so than left, I suspect there may be a component of ARDS. His initial presentation was the presentation of aspiration pneumonia to begin with and that was 3 weeks agoWBC count is 10.3 hemoglobin 8.6 sodium 131 potassium 4 chloride 100 bicarb 23 BUN is 111 creatinine 4.02 blood sugar is 248. Albumin is 1.9 Patient was evaluated today on , patient remains in the ICU, intubated and mechanically ventilated. Patient is on assist-control rate of 20 tidal volume 550 FiO2 35% and PEEP of 5 ABG showed a pO2 of 99 pCO2 39 pH of 7.44 patient is undergoing hemodialysis today, and the plan is to remove 2 L. He is remains on propofol at 35 mcg/kg/min, remains on TPN at 75 cc/h. Remains on Merrem. Patient is not requiring any pressors today. Yesterday patient did not tolerate to be off sedation long enough, and today we tried the same sedation interruption, and the patient did not do well post interruption of sedation, became extremely agitated restless, tachycardic, and could not fully assess mental status off sedation. Hence the patient was placed back on AC mode of mechanical ventilation, and the plan is to continue the same supportive care measures. Family updated on his condition and most likely the patient will end up requiring tracheostomy in the next few days.WBC count is 8.5 hemoglobin 8.2 basic metabolic profile is relatively unremarkable BUN is 89 creatinine 3.45 chest x-ray today showed stable chest, suspect some right-sided pleural effusion which would likely improve with hemodialysis/ultrafiltration. X-ray of abdomen showed nonspecific nonobstructive bowel gas pattern Patient was seen today on 12/04/2023, remains in the ICU, intubated mechanically ventilated, on assist-control rate of 20 tidal volume 550 FiO2 35% PEEP of 5 ABG showed a pO2 of 112 pCO2 38 pH of 7.45, hence no changes were made in ventilator settings. Patient is on propofol at 35 mcg/kg/min he is also on IV fluid at KVO TPN at 75 cc/h. Remains on hemodialysis remains on Lasix 80 mg IV push twice daily, remains on Merrem. This x-ray continues to show the same findings/airspace disease in both lungs, not much of a change in the last 2 days, however his oxygenation seems to be improved. WBC count is 7.1 hemoglobin 7.7. Electrolytes are normal, BUN is elevated 77 creatinine 3.32, patient is on hemodialysis. His condition was discussed today with the at bedside, and I do not believe the patient is ready to be weaned or extubated, however he seems to get extremely agitated when he goes off propofol, today I plan to transition propofol to Precedex, give him a trial on Precedex and determine whether the patient becomes more appropriate and at least ready for any weaning trials. Clinically I doubt if this will happen but we will go ahead and try Patient was evaluated today on 12/05/2023, remains in the ICU, intubated mechanically ventilated, not much of a change noted in the last 24 hours. Remains on assist-control of 20 tidal volume 550 FiO2 35% PEEP of 5 ABG showed a pO2 of 90 pCO2 37 pH of 7.48 hence chose not to change any of his ventilator settings. Yesterday the patient failed again trial of weaning, and he was never anywhere near ready to be weaned in spite of placing him on Precedex and off propofol, at 1 point the patient became extremely agitated restless and he was biting on the endotracheal tube could not fully awake the patient and determine improvement in his mental status. Hence patient was placed back on propofol yesterday and he remains on propofol today. He is on propofol at 25 mcg/kg/min he is on TPN at 75 cc/h surgery is considering starting his J-tube feedings today. Remains on hemodialysis remains on Merrem remains on Lasix 80 mg IV push twice daily overall not much of a change his chest x-ray is basically about the same showing bibasilar airspace disease. Today I had a discussion with the regarding the option of tracheostomy extremely reluctant to have it done yet. Said that the patient had multiple complications with previous surgeries and she is afraid that he is going to have another complication with the surgeryWBC count is 10.2 hemoglobin is 8, basic metabolic profile is normal sodium 130 BUN 70 creatinine 2.89 Patient was seen today on 12/06/23, remains in the ICU, intubated mechanically ventilated, his ventilator settings are assist-control rate 20 tidal volume 550 FiO2 35% and PEEP of 5 ABG showed a pO2 of 103 pCO2 36 pH of 7.47 patient opens eyes but does not follow any other instructions. He is now off propofol for the last 24 hours, he is maintained on Precedex at 0.4, TPN at 75 cc/h vital AF at 5 mL/h. Patient remains on Merrem, patient did not receive dialysis today because issues related to occluded dialysis catheter. Nonetheless the patient is making urine, and continues to improve with diuretics. Chest x-ray continues to show bibasilar airspace disease, not much of a filter changer the last 1 week.WBC count today is 11.8 hemoglobin is 7.9.Basic metabolic profile is normal BUN is 92 creatinine 3.74. Blood sugar is 226. Family is at bedside, considering his overall mental status at this point, not quite ready to start checking weaning parameters, and is not ready for weaning. Nonetheless I plan to keep him on Precedex, and hopefully avoid narcotics and other sedatives. His mentation starts clearing a bit more, then will start trials of weaning parameters and/or weaning trials Patient was seen today on 12/07/2023, remains in the ICU, intubated and mechanically ventilated, on assist-control rate of 20 tidal volume 550 FiO2 35% PEEP of 5 ABG showed a pO2 of 83 pCO2 33 pH of 7.50 hence the tidal volume was cut down to 500. Patient remains off propofol remains off narcotics is only on Precedex for sedation at 0.6 mg/kg/h. He is on norepinephrine at 0.02 TPN at 75 cc/h IV fluid at KVO vital AF at 10 mL/h is also on Merrem. Neurologically I am concerned about this patient neurological status, does not seem to be waking up much, he opens his eyes but does not follow any instructions and spite of sedation hold for quite some time. Hence I am recommending a CT of the brain and multiple recommending a neurological consultation on this patient. WBC count is 18 7 hemoglobin is 8.4, basic metabolic profile is normal BUN is 75 creatinine 2.95, patient is back on dialysis, he had a new hemodialysis catheter placed yesterday by vascular surgery, and he will be restarted back on hemodialysis. CT of the brain done shortly after evaluating the patient showed no acute intracranial process chest x-ray basically about the same, continues to show small left and moderate right basilar infiltrate. Has not changed much over the last 1 week, patient remains on antibiotics. Patient was seen today on 12/08/2023, remains in the ICU, intubated and mechanically ventilated, remains on assist-control rate of 20 tidal volume 500 FiO2 35% PEEP of 5 ABG showed a pO2 of 88 pCO2 37 pH of 7.47 hence no changes were made in ventilator settings. Chest x-ray is showing slight increase in his right-sided pleural effusion, however his oxygenation seems to be about the same, and the patient is responding to Lasix given at 80 mg IV push every 12 hours, he is also doing well with hemodialysis he had 2 L removed yesterday and 2 L the day before. Hence will not recommend thoracentesis at this point. But the pleural effusion will need to be closely monitored. Patient remains off propofol he is on Precedex at 0.6 mcg/kg/h. For the last 2 days, and his mentation is not much different from baseline. Continues to open his eyes and does not follow any other instructions has the patient is clearly not ready for weaning trials or extubation. Brought up the issue of tracheostomy again with the , she is still reluctant to proceed with tracheostomy on him at this point. Patient remains on Merrem, remains on TPN but his enteral feeding will be advanced today to full goal, and if that happens then we will can discontinue TPN. Patient is receiving vital AF 1.2@10 mL/h at this point.WBC count is 19.3 hemoglobin 7.6. Basic metabolic profile is normal BUN is 72 creatinine 2.99 blood sugar ranging between 250 up to 334. 12/09/23 - patient seen at bedside today, remaining in the ICU, intubated and mechanically ventilated, remaining on assist-control rate of 20, tidal volume 500, FiO2 30%, PEEP of 5 and oxygen saturation of 100%. Patient is on day 27 of his hospital stay (admitted 11/11), day 15 of this current ICU stay (readmit to the ICU 11/24) and day 15 of this current period of time on the ventilator (placed 11/24). ABG showed pO2 100, pCO2 36, pH 7.47. Chest x-ray was deemed to be stable, however possibly with slight improvement noted on the left with a right-sided pleural effusion remains evident however the patient's oxygenation remains to be about the same. Continue to receive 80 mg IV Lasix every 12 hours and is receiving daily hemodialysis, in which he has been having 2 L removed the past couple of days, hemodialysis yet to occur today. His creatinine is 3.57 (compared to 2.99 yesterday) and BUN 98 (compared to 72 yesterday). Due to this response to diuresis and hemodialysis, no thoracentesis recommended at this point however pleural effusion will need to continue to be monitored. Patient shon off propofol, he is on Precedex at 0.4 mcg/kg/h. Due to his mentation remaining near baseline, neurology had been consulted who ordered an EEG which is scheduled to be done today. The patient does seem to be having some improved mentation, with opening his eyes and responding to commands some of this morning. Spontaneous breathing trial to be attempted today, to see if the patient will be able to come off of mechanical ventilation. If that is unable to occur, discussed with the patient as well as his and one of his daughters that a tracheostomy would be the most appropriate next course of action due to the potential dangers of sustained endotracheal intubation for prolonged period of time. The , while reluctant, seem to acknowledge that this is the appropriate course of action. He remains receiving meropenem 1 g nightly. He remains on TPN 75 mL/h, which she has been on since 11/21 (18), but his enteral feeding has been vital 1.2 AF at 10 mL/h with a goal rate of 80 mL/h. Patient drained 60 mg of serosanguineous fluid from his RAYA. His WBCs increased to 21.5 (compared to 19.3 yesterday), hemoglobin dropped to 7.2 (compared to 7.6 yesterday), hematocrit dropped to 22.0 (compared to 22.9 yesterday) and patient procalcitonin remains elevated at 3.07. REVIEW OF SYSTEMS: Could not be assessed , patient on mechanical ventilation and sedated. PHYSICAL EXAMINATION: General: Revealed 73-year-old male intubated, mechanically ventilated, sedated, on Precedex (0.4 mcg/kg/min), off propofol for the last 2 days. Supine position 96% O2 saturation, 35% FiO2 and PEEP of 5 Skin: Skin is warm and dry and no rashes or lesions are noted. HEENT: Pupils are round and equally reacting to light. EOMI. No scleral icterus. No conjunctival pallor. Normocephalic, atraumatic. No pharyngeal erythema. No thyromegaly. Cardiovascular: There is a regular rate and rhythm. No murmur, rub or gallop is appreciated. Respiratory: Diminished breath sounds and crackles at the bases no rhonchi no wheezes Gastrointestinal: J-tube is noted RAYA drain is noted NG tube is in place mild abdominal distention, no rebound, no guarding, no bowel sounds, no significant leak noted from the tubes in the abdomen. Musculoskeletal: No deformities and no limitation range of motion Neurological: Patient does not follow any instructions opens eyes and does not follow any instructions; seems to be following some commands this morning, will continue to monitor Extremities: Trace of bipedal edema Assessment and plan # Acute hypoxic respiratory failure requiring intubation mechanical ventilation secondary to aspiration Continue ventilatory support Continue DuoNeb 3 mL elation 4 times daily, Solu-Medrol 40 mg IV daily # Acute peritonitis secondary to status post J-tube placement 11/16/2023 # Septic shock secondary to status post J-tube placement 11/16/2023 # Paroxysmal atrial fibrillation Normal on telemetry, patient noted to be in A-fib with RVR Patient was started on amiodarone drip Amiodarone discontinued, patient was on Lopressor 12.5 twice daily however also discontinued # CRISTAL secondary to sepsis and septic shock Patient receiving hemodialysis since 11/28 Noted hyperkalemia and dialysis catheter center dialysis completed on 12/05 New dialysis catheter placed 12/06 dialysis was resumed Removed 2 L each of the past couple of days, pending today Patient's kidney function continues to decline, creatinine 3.57 today (compared to 2.99 yesterday) and BUN 98 (compared to 72 yesterday) # Acute aspiration during upper endoscopy most likely secondary to gastric outlet obstruction secondary to non-Hodgkin's lymphoma based on the pathology from stomach biopsies #Cute aspiration at night as secondary to acute aspiration during upper endoscopy most likely secondary to gastric outlet obstruction secondary to non- Hodgkin's lymphoma based on the pathology from stomach biopsies Patient on meropenem 1 g daily Patient had been on IV Zosyn and vancomycin have been discontinued # Weight loss secondary to non-Hodgkin's lymphoma Patient had noted 22 pound weight loss for the past 4 months 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 Dictation was produced using [employer] dictation software. please excuse any grammatical, word or spelling errors. Objective - Vital Signs Vital signs: Vital Signs Temp 98.2 F 12/09/23 08:00 Pulse 68 12/09/23 10:00 Resp 15 12/09/23 10:00 BP 120/72 12/09/23 10:00 Pulse Ox 100 12/09/23 10:00 FiO2 35 12/09/23 10:00 Intake & Output 12/08/23 12/09/23 12/09/23 18:59 06:59 18:59 Intake Total 0033.066 6312.310 349 Output Total 995 1290 850 Balance 448.095 27.310 -501 Weight 103.6 kg Intake: IV 221 129 274 0.9 KVO 110 120 40 Normal Saline Pressure 36 9 9 Saline TPN 75 225 Intake, IV Titration 117.095 228.310 Amount Dexmedetomidine/0.9% NaCl 117.095 221.941 (Pmx) 400 mcg In Empty Bag 1 bag @ 0.2 MCG/KG/HR 5.485 mls/hr IV .[id number] NIRMAL Rx#:[id number] Norepinephrine 8 mg In 6.369 Sodium Chloride 0.9% 250 ml @ 0.03 MCG/KG/MIN 6. 368 mls/hr IV .Q24H NIRMAL Rx#:[id number] Tube Feeding 190 60 TPN/PPN 825 900 75 TPN 825 900 75 Other 90 Output: Drainage 30 50 60 Right Abdomen 30 50 60 Urine 965 1240 790 Other: Voiding Method Indwelling Catheter Indwelling Catheter Indwelling Catheter # Bowel Movements 1 ABP, PAP, CO, CI - Last Documented Arterial Blood Pressure 133/72 - Labs CBC & Chem 7: 12/09/23 04:30 12/09/23 04:30 Labs: Abnormal Lab Results - Last 24 Hours (Table) 12/08/23 12/08/23 12/08/23 Range/Units 04:50 12:03 17:27 WBC (3.8-10.6) k/uL RBC (4.30-5.90) m/uL Hgb (13.0-17.5) gm/dL Hct (39.0-53.0) % RDW (11.5-15.5) % Plt Count (150-450) k/uL Neutrophils # (1.3-7.7) k/uL ABG pH (7.35-7.45) ABG HCO3 (21-25) mmol/L ABG Total CO2 (19-24) mmol/L ABG O2 Saturation (94-97) % Hemoglobin (13.0-17.5) gm/dL Sodium (137-145) mmol/L BUN (9-20) mg/dL Creatinine (0.66-1.25) mg/dL Glucose (74-99) mg/dL POC Glucose (mg/dL) 264 H 257 H (70-110) mg/dL Calcium (8.4-10.2) mg/dL Procalcitonin 3.07 H (0.02-0.50) ng/mL 12/09/23 12/09/23 12/09/23 Range/Units 00:10 04:30 04:30 WBC 21.5 H (3.8-10.6) k/uL RBC 2.59 L (4.30-5.90) m/uL Hgb 7.2 L (13.0-17.5) gm/dL Hct 22.0 L (39.0-53.0) % RDW 20.5 H (11.5-15.5) % Plt Count 126 L (150-450) k/uL Neutrophils # 19.5 H (1.3-7.7) k/uL ABG pH (7.35-7.45) ABG HCO3 (21-25) mmol/L ABG Total CO2 (19-24) mmol/L ABG O2 Saturation (94-97) % Hemoglobin (13.0-17.5) gm/dL Sodium 134 L (137-145) mmol/L BUN 98 H (9-20) mg/dL Creatinine 3.57 H (0.66-1.25) mg/dL Glucose 229 H (74-99) mg/dL POC Glucose (mg/dL) 303 H (70-110) mg/dL Calcium 7.5 L (8.4-10.2) mg/dL Procalcitonin (0.02-0.50) ng/mL 12/09/23 12/09/23 Range/Units 04:31 04:32 WBC (3.8-10.6) k/uL RBC (4.30-5.90) m/uL Hgb (13.0-17.5) gm/dL Hct (39.0-53.0) % RDW (11.5-15.5) % Plt Count (150-450) k/uL Neutrophils # (1.3-7.7) k/uL ABG pH 7.47 H (7.35-7.45) ABG HCO3 27 H (21-25) mmol/L ABG Total CO2 28 H (19-24) mmol/L ABG O2 Saturation 98.6 H (94-97) % Hemoglobin 7.1 L (13.0-17.5) gm/dL Sodium (137-145) mmol/L BUN (9-20) mg/dL Creatinine (0.66-1.25) mg/dL Glucose (74-99) mg/dL POC Glucose (mg/dL) 241 H (70-110) mg/dL Calcium (8.4-10.2) mg/dL Procalcitonin (0.02-0.50) ng/mL
--- NOTE | 2023-12-09 14:29 | P.PN ---
Progress Note - Text Progress Note Date: 12/09/23 RAGHAV. Patient remains intubated. Tolerating tube feeds at 20cc/hr. Having Bowel Function. 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 Status post J-tube placement and revision for SBO -Ok to slowly advance TFs to Goal. -Plan for Tracheostomy 12/09 -Hold TFs at midnight -ICU care Dick Ewing DO [facility] [phone]
--- NOTE | 2023-12-09 15:27 | P.PN ---
Progress Note - Text Progress Note Date: 12/09/23 Chief Complaint: Aspirated This is a 73-year-old patient, follows with Dr. Patricia Deal. Patient was seen this morning in the ICU. Patient's and daughter at the bedside. History obtained predominantly by the . Patient been having trouble with his stomach symptoms for close to 8 months. Patient underwent EGD by Dr. Sahara Cheng yesterday. Patient was found to have ulcerated around the antrum and obstruction to the pylorus. A lot of retained food was found. Patient aspirated. Had to be intubated and brought to the ICU. On a Levophed drip. FiO2 50 and a PEEP of 6. Patient had been losing weight lost about 25 pounds. Previously has a history of mitral valve prolapse. November 13: ICU. Patient remains on Precedex drip and propofol drip. Did not do well attempted extubation yesterday. Patient been off Levophed. NG tube to suction. Spoke to patient's and son at the bedside. Biopsy results awaited. Hemoglobin dropped to 6.9 this morning. Get a unit of blood. November 14: ICU. Up in a chair. Extubated yesterday. NG tube to suction. at the bedside. 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 Oncology was consulted. They have ordered a port. Results discussed with Dr. Sahara Cheng. General surgery was consulted for J-tube placement. Discussed with at the bedside. Patient getting IV fluids, IV Zosyn,. Patient has been on IV amiodarone for A-fib-back in sinus rhythm. Multiple PACs. Did receive unit of blood yesterday. Also IV ferric gluconate. November 15: ICU. Patient earlier today underwent jejunostomy tube placement and a port placement. Patient awake. Answering questions. NG tube to suction present. Updated patient's . Patient remains on IV amiodarone and IV Zosyn. November 16: ICU. Up in the chair. NG tube present but not to suction. Trickle feeding through the jejunostomy tube should be started today. Dietitian has been on board. IV Zosyn to continue. Patient's and his sister at the bedside. Discussed. Also spoke with Dr. Serna. Given patient has no other predisposing cardiac factors for the A-fib except acute illness. His LV function is normal. Left atrium is normal. He has already been loaded with IV amiodarone. Will switch him to oral Lopressor 12.5 twice daily. Hence will DC amiodarone. Patient yesterday had wheezing was put on bronchodilators steroids per pulmonary. November 17: Propped up in bed. NG tube was discontinued. Sinus rhythm. Remains NPO. Getting G-tube feeding at 40 cc an hour. Dietitian following. Get arrangements done for DC home tomorrow including tube feeding. Increase activity discussed with patient and elder daughter at the bedside. Still requiring oxygen. Incentive spirometry. November 18: Patient up in recliner. Earlier today spoke to sr. social media & mobile manager David. Informed patient is rather weak and will be going to the [facility]. Looking at authorization. Denae came to the room and spoke to patient his and his daughter. They are very keen to take the patient home as 3 daughters all nurses and they will take care of him at home. Patient earlier today to abdominal cramping and some loose stools.'s tube feeding was held. Told the nurse to start back at the rate of 40 cc an hour. He was before the getting it at 55 cc an hour. Incentive spirometry was again emphasized. Patient remains on 4 L of oxygen. November 19: I saw the patient this morning. Hence I am in the evening. Morning was sitting with his sons. Has some edema. Lungs had crackles I gave him 40 mg of Lasix. He did make good urine. Tube feeding was held from the previous evening of because of abdominal cramping. Acute abdominal series showed nonspecific bowel gas pattern and SBO to be ruled out. Family and patient was updated. Told him discharge will depend on day by day. Later this afternoon CT scanAnd abdomen pelvis done. Showed small bowel to be 3 point centimeter dilated. Some anasarca. Gastric findings. Gallstones. Later spoke to Dr. Irby from general surgery. They will further review and decide about further plan of action. Will give further dose of IV Lasix because of fluid overload from likely hypoalbuminemia and IV fluids previously received. Patient may take his pills by mouth. Total time spent today about 1 hour with over 40 minutes of discussion. Patient did state his breathing is better after Lasix this morning. November 20: Saw the patient this morning. was present. Patient received 2 more doses of Lasix. Diuresed well. Breathing much better. Lungs are sounding better. Discussed with Dr. Zepeda other surgeon. He is taking 3 cc out of the balloon and the gastrostomy tube. Started trickle feeding at 5 cc an hour. Will see how this does. Later in the day ran into the and the daughter again. Did update them on the same. Dilaudid was discontinued yesterday but morphine was ordered by surgery for patient having pain. Concerns about GI issues with that we will DC the morphine. As family does not want the same. November 21: Patient reclining bed. Tired. Several family members at the bedside. Including his and eldest daughter. Patient started on trickle feed yesterday at 5 cc an hour. This morning he has been on 10 cc an hour. Still having some loose stools. C. difficile was ordered. Patient on 2 L of nasal cannula. Has diuresed well. Will give an additional dose of Lasix today. If C. difficile is negative and the diarrhea is from the tube feedings we may have to use a fecal management system to keep him comfortable. Otherwise patient remains NPO. Dietitian is following the patient. Care was discussed length with patient the and daughter at the bedside. Questions answered. Liquid Tylenol has been added for abdominal pain. Avoid narcotics. Elevated white count likely from Solu-Medrol 11/23/2023--patient was feeling better today. Multiple family member at bedside. No issues overnight. Normal saline at 10 cc an hour, tube feeding at 20 cc an hour, remains on Zosyn, on 3 L oxygen. Afebrile. Heart rate 62, respiratory rate 16, blood pressure 114/67, saturating 91% on 3 L. WBCs 14.5, 9.7 hemoglobin. Platelet 242. BMP is unremarkable. Pulmonary and general surgery following. General surgery recommended to continue tube feeds at 20 cc/h. 11/24/2023--patient reported significant abdominal discomfort, also noted to have leak around G-tube. General surgery is following, evaluated the patient at bedside, adjusted tube feeds. Also reported having diarrhea, on 2 L oxygen, went up to 5 L. Blood pressure was low, 500 mL fluid bolus with close monitoring of respiratory status ordered. Currently on DuoNebs, Solu-Medrol, will continue Zosyn. Chest x-ray showed a left lower lobe infiltrate. Abdominal x-ray showed multiple air-fluid levels. CT abdomen showed multiple dilated small bowel loops, consistent with obstruction, pneumoperitoneum, cholelithiasis and ascites. WBCs 14.1, platelet 255, hemoglobin 8.9. NG tube in place. Family at bedside. patient transferred to SICU for close monitoring. 11/25/23--patient is currently in the ICU, required Levophed overnight due to low blood pressure, low urine output with creatinine trending up. Nephrology following. [employer] Fab[employer]ator also following. Patient remains n.p.o., NG tube in place, following NG tube insertion patient had total of 2 L output, J-tube was draining approximately 200 cc over last 8 hours, continues to have abdominal pain and abdominal tenderness. Patient on IV fluids. Currently on 4 L oxygen. WBCs 8.2, hemoglobin 12.3, platelet 188. Chest x-ray earlier today showed right sided port and a stable left lung airspace disease, NG tube in place. Patient currently on Zosyn, on IV Dilaudid for pain control, on IV Solu-Medrol. General surgery planning for OR today, started on TPN. 11/26/23--patient was seen and examined today. Patient is currently sedated, intubated on mechanical ventilation. Family at bedside. Patient underwent ex lap, abdominal washout, small bowel resection with new feeding jejunostomy tube placement yesterday, small bowel was noted to be perforated with significant contamination of abdominal cavity. Patient is currently on vancomycin and Zosyn. Creatinine went up to 2.85, nephrology following, recommended to continue IV fluids, avoid nephrotoxin Preserved EF on echocardiogram.. Patient currently on Levophed, vasopressin in the ICU for close monitoring. Patient is afebrile, heart rate 122, blood pressure 129/76, currently on mechanical ventilation, sedated. November 26: ICU. Intubated. FiO2 60 and a PEEP of 5. Drips include IV amiodarone. Heart rate was up early did get fired microgram of IV digoxin and 2.5 mg of IV Lopressor. Did drop her blood pressure bit. Urine output was low. Received 80 mg of IV Lasix. Ahmet to 150 cc. Other drips include IV propofol, vasopressin, Levophed. TPN was started yesterday. Antibiotics include IV Zosyn and vancomycin. Patient has a J-tube to drainage to gravity. Spoke to patient's younger daughter and at the bedside. Prognosis guarded. Continue current treatment plan. Chest x-ray shows right lower lobe consolidation. Small pleural effusion. November 27: ICU. Intubated. FiO2 55 and a PEEP of 5. Antibiotics include IV vancomycin. Drips include Levophed at a small dose, IV vasopressin, propofol, amiodarone. Patient converted to sinus rhythm this morning. Getting TPN and normal saline at 75 cc an hour. Urine output about 25 cc an hour. RAYA drain put out about 260 cc last 12 hours that is last assistant shift supervisor. NG tube with bilious output. And also GI J-tube output to gravity. Spoke to patient's and daughter at the bedside. They understand patient still not out of the kee. Platelets have dropped-therefore probably Zosyn stopped. November 28: ICU. Intubated. FiO2 55 and a PEEP of 5. Patient is in sinus rhythm. Seen this morning. Due for dialysis catheter this afternoon. Urine output about 15 to 20 cc an hour. Patient is on IV Lasix 80 mg every 12. Saline is KVO. Drips include IV propofol vasopressin. Patient having significant output through the RAYA drain and the jejunostomy tube to drainage. Creatinine had been getting worse. Patient's at the bedside. Understands patient's remains critically ill. Hemoglobin is down to 7. Given that patient's pain hypotensive, and on vasopressin we will give a unit of blood with dialysis. Getting TPN antibiotic changed to IV meropenem November 29: ICU. Intubated. FiO2 55 and a PEEP of 5. Remains in sinus rhythm. Getting TPN. Dialyzed yesterday and this morning. About 1000 cc removed. Urine output about 50 cc an hour. Patient is on IV propofol. Off vasopressin. Still having significant output through the RAYA drain and jejunostomy tube. Patient received a second unit of blood yesterday. Patient's and daughter at the bedside. I did discuss guarded prognosis. Did asked them to revisit CODE STATUS.. Getting IV meropenem. November 30: ICU. Intubated. Did get a sedation holiday t today. Back on propofol. Getting TPN. Still getting IV Lasix. Fair urine output. Jejunostomy tube in last 8 hours was about 30 cc output. RAYA drain in the 8 hours had about 180 cc output. Telemetry shows sinus rhythm. NG tube has low intermittent suction with negative output. On the vent with FiO2 40 and a PEEP of 5. No hemodialysis today. Discussed with the and eldest daughter at the bedside. IV meropenem-patient's sputum had grown Citrobacter freundii and Pseudomonas aeruginosa. December 01: ICU. Intubated. Jejunostomy tube to gravity. Only 10 cc output in last 24 hours. RAYA drain. About 190 cc last 6 hours. Nasogastric tube to low intermittent suction. Minimal output. Patient is on a small dose of propofol 5 mics. Telemetry shows sinus rhythm. Patient started on small dose of Cleviprex this morning. Blood pressure. Getting TPN. FiO2 35 and PEEP of 5. Discussed with the at the bedside. Hemodialysis today December 02: ICU. Patient remains intubated. FiO2 35 PEEP of 5. Patient is on IV propofol. IV Cleviprex was discontinued yesterday. Also remains on TPN. Telemetry shows sinus rhythm. NG tube is good no output. Still significant output through the RAYA drain. Jejunostomy tube has minimal output. Patient had hemodialysis today 2 L of fluid was removed. Oral half liters yesterday. Patient getting a sedation holiday. General Surgery started the patient on trickle feeding at 10 cc an hour. I did speak to patient's at the bedside. Prognosis remains guarded but there is some improvement. December 03: ICU. Intubated. FiO2 35 PEEP of 5. Drips include IV propofol and Precedex. Getting TPN. Telemetry shows sinus rhythm. Remains on IV Lasix 80 mg twice a day. IV meropenem. Because patient gets easily agitated when transitioning off propofol he has been switched over to Precedex. For hemodialysis today. December 04: ICU. Intubated. FiO2 35 and a PEEP of 5. Patient been taken off propofol is on Precedex. Telemetry sinus rhythm. J-tube with minimal output. RAYA drain with decreased output. NG tube to suction minimal output. Family wanted to hold off trickle feeding until cleared by oncology. Which he did today. Trickle feeding will be started today. Spoke to patient's and one of the daughters at the bedside. Dr. Russ is spoken to the earlier this point they want to do further tracheostomy tube. December 05: ICU. Intubated. FiO2 35 PEEP of 5. Patient remains on Precedex and PPN. Patient's dialysis catheter was not functioning is getting another [address] Bobby this afternoon. Remains on IV meropenem. Has a RAYA drain in the jejunostomy tube to gravity. NG tube to low intermittent suction. No family at the bedside. December 06: ICU. Intubated. FiO2 35 PEEP of 5. RAYA drain putting out about approximately 120 cc per shift. Patient on IV Precedex. FiO2 35 PEEP of 5. Telemetry-sinus rhythm. Patient occasionally been put on small dose of Levophed specially for hemodialysis getting it today. Also started on midodrine for low blood pressure. Tolerating tube feeding at 10 cc an hour. Also had a bowel movement. Mentation has not improved. Even with sedation holiday. Neurology consulted. CT brain shows no acute process. December 07: ICU. Intubated. FiO2 35 PEEP of 5. Telemetry-sinus rhythm. NG tube to suction low intermittent minimal output. Getting TPN. Tube feeding at 20 cc an hour. RAYA drain averaging over 100 cc per shift. Remains on Precedex. EEG was done today. Discussed with at the bedside. Family is currently not inclined for tracheostomy tube today. Day 13 of being intubated December 08: ICU. Intubated. FiO2 35 PEEP of 5. Patient is put on back on propofol per labor relations teacher Dr. BINGHAM. EEG did show some potential for spikes was put on Keppra by neurology. Telemetry shows sinus rhythm. NG tube to suction with no output. Tube feeding was put on hold because of questionable discharge on the site. Being restarted today. RAYA drain is 150 cc last 12-hour shift. Patient does open eyes. Family has decided to proceed with tracheostomy and surgery has been consulted for the same. Spoke to the at the bedside. For hemodialysis today. Active Medications Acetaminophen (Acetaminophen Tab 325 Mg Tab) 650 mg PO Q4HR PRN PRN Reason: Fever and/ or Pain Last Admin: 12/08/23 20:56 Dose: 650 mg Acetaminophen (Acetaminophen Oral Susp (Peds) 3,840 Mg/120 Ml Bottle) 480 mg PO Q4HR PRN PRN Reason: Fever Albuterol/Ipratropium (Ipratropium-Albuterol 3 Ml Neb) 3 ml INHALATION RT-QID [facility] Last Admin: 12/09/23 11:25 Dose: 3 ml Albuterol/Ipratropium (Ipratropium-Albuterol 3 Ml Neb) 3 ml INHALATION RT-Q2H PRN PRN Reason: Shortness Of Breath Or Wheezing Last Admin: 12/03/23 03:45 Dose: 3 ml Chlorhexidine Gluconate (Chlorhexidine Gluconate 15 Ml Cup) 15 ml MUCOUS MEM BID [facility] Last Admin: 12/09/23 09:03 Dose: 15 ml Dextrose/Water (Dextrose 50% Syringe 50 Ml) 25 ml IVP PER PROTOCOL PRN; Protocol PRN Reason: Hypoglycemia Dextrose/Water (Dextrose 50% Syringe 50 Ml) 50 ml IVP PER PROTOCOL PRN; Protocol PRN Reason: Hypoglycemia Furosemide (Furosemide 10 Mg/Ml 10 Ml Vial) 80 mg IV Q12H [facility] Last Admin: 12/09/23 05:49 Dose: 80 mg Hydromorphone HCl (Hydromorphone 0.5 Mg/0.5 Ml Syringe) 0.5 mg IVP Q6HR PRN PRN Reason: Pain Last Admin: 12/09/23 00:08 Dose: 0.5 mg Sodium Chloride (Saline 0.9%) 1,000 mls @ 20 mls/hr IV .Q24H [facility] Last Admin: 12/08/23 13:46 Dose: Not Given Meropenem 1 gm/ Sodium (Chloride) 100 mls @ 33.333 mls/hr IVPB HS [facility] Last Admin: 12/08/23 20:24 Dose: 33.333 mls/hr Norepinephrine Bitartrate 8 mg (/ Sodium Chloride) 258 mls @ 6.368 mls/hr IV .Q24H [facility]; Protocol Last Titration: 12/09/23 04:00 Dose: 0 mcg/kg/min, 0 mls/hr Parenteral Vitamin Supplement 10 ml/ Zinc/Copper/Manganese/Selenium 1 ml/ Sodium Acetate 60 meq/ Sodium Chloride 68 meq / Potassium Chloride 14 meq/Calcium Gluconate 2.25 gm/Magnesium Sulfate 0.5 gm/Amino Acids/Dextrose 1,088.5 mls @ 75 mls/hr IV .BY DURATION [facility] Stop: 12/09/23 18:59 Last Admin: 12/09/23 05:14 Dose: 75 mls/hr Sodium Acetate 60 meq/ Sodium Chloride 68 meq/ Potassium Chloride 14 meq/ Calcium Gluconate 2.25 gm/ Magnesium Sulfate 0.25 gm/ Amino Acids/Dextrose 1,077 mls @ 75 mls/hr IV .BY DURATION [facility] Stop: 12/09/23 18:59 Last Admin: 12/08/23 13:46 Dose: 75 mls/hr Propofol 1,000 mg/ IV Solution 100 mls @ 9.324 mls/hr IV .[id number] [facility]; Protocol Last Titration: 12/09/23 11:45 Dose: 20 mcg/kg/min, 12.432 mls/hr Parenteral Vitamin Supplement 10 ml/ Zinc/Copper/Manganese/Selenium 1 ml/ Sodium Acetate 60 meq/ Sodium Chloride 68 meq / Potassium Chloride 14 meq/Calcium Gluconate 2.25 gm/Magnesium Sulfate 0.5 gm/Amino Acids/Dextrose 1,088.5 mls @ 120 mls/hr IV .BY DURATION [facility] Sodium Acetate 60 meq/ Sodium Chloride 68 meq/ Potassium Chloride 14 meq/ Calcium Gluconate 2.25 gm/ Magnesium Sulfate 0.5 gm/ Amino Acids/Dextrose 1,077.5 mls @ 120 mls/hr IV .BY DURATION [facility] Insulin Aspart (Insulin Aspart (Novolog) 100 Unit/Ml Vial) 0 unit SQ 0000,0600,1200,1800 [facility]; Protocol Last Admin: 12/09/23 11:15 Dose: Not Given Insulin Detemir (Insulin Detemir (Levemir) 100 Unit/Ml Syr) 24 unit SQ DAILY@0700 [facility] Last Admin: 12/09/23 05:51 Dose: 24 unit Levetiracetam (Levetiracetam Iv 500 Mg/5 Ml Vial) 500 mg IVP Q24HR [facility] Last Admin: 12/09/23 09:03 Dose: 500 mg Methylprednisolone Sodium Succinate (Methylprednisolone Sod Succi 40 Mg/Ml 1 Ml Vial) 40 mg IV DAILY@1800 [facility] Last Admin: 12/08/23 17:31 Dose: 40 mg Metoprolol Tartrate (Metoprolol Tartrate 5 Mg/5 Ml Vial) 2.5 mg IVP Q6HR PRN PRN Reason: Heart Rate - HIGH Last Admin: 11/27/23 08:25 Dose: 2.5 mg Midodrine (Midodrine 5 Mg Tab) 5 mg PO AC-TID [facility] Last Admin: 12/09/23 05:49 Dose: 5 mg Miscellaneous Information (Magnesium Replacement Protocol 1 Each Misc) 1 each MISCELLANE DAILY PRN; Protocol PRN Reason: Per Protocol Naloxone HCl (Naloxone 0.4 Mg/Ml 1 Ml Vial) 0.2 mg IV Q2M PRN PRN Reason: Opioid Reversal Pantoprazole Sodium (Pantoprazole 40 Mg/10 Ml Vial) 40 mg IVP BID [facility] Last Admin: 12/09/23 09:20 Dose: 40 mg Past medical history to include: GERD Social history: . No smoking. Physical examination: VITAL SIGNS: 98.9, 73, 26, 126 x 73, 100% on the vent GENERAL: Sedated, right chest wall port EYES: Pupils equal. Conjunctiva edouard l. HEENT: External appearance of nose and ears normal, oral cavity-endotracheal tube. NG tube-low intermittent suction NECK: JVD unable to assess; masses not palpable. HEART: First and second heart sounds are normal; edema, present LUNGS: Respiratory rate increased, decreased breath sounds ABDOMEN: Soft, nontender, liver spleen not palpable, no masses palpable..jejunostomy tube-attached to tube feeding 20 cc an hour. RAYA drain. Incision with stitches PSYCH: Sedated INVESTIGATIONS, reviewed in the clinical context: December 08: White count 21.5 hemoglobin 7.2 platelets 126 potassium 4.1 BUN 98 creatinine 3.57 December 07: White count 8.3 hemoglobin 7.6 platelets 104 sodium 133 potassium 4.2 BUN 32 creatinine 2.99 December 06: White count 18.7 hemoglobin 8.4 platelets 108 sodium 133 potassium 4 BUN 75 creatinine 2.95 December 05: White count 1.8 hemoglobin 7.9 platelets 107 sodium 130 potassium 3.9 BUN 92 creatinine 3.74 Small bowel resection [December 01]: Ischemic active enteritis with focal necrosis and perforation. Serosal fibrous adhesions. Viable margins. December 04: White count 10.2 hemoglobin 8 platelets 90 sodium 130 potassium 4 BUN 70 creatinine 2.89 Sputum culture: [November 25]: Citrobacter freundii. Pseudomonas aeruginosa November 20: White count 14.4 hemoglobin 8.8 platelets 229 potassium 4.1 BUN [address] scan abdomen [November 19] possible small bowel obstruction Stool: C. difficile negative November 16: White count 9.1 hemoglobin 7.9 platelets 259 potassium 4.3 creatinine 0.92 November 15: WBC 13 hemoglobin 7.7 platelets 248 potassium 4.3 creatinine 0.87 2D echo: EF 55 to 60%. November 14: White count 10.7 hemoglobin 7.5 platelets 239 potassium 4.2 creatinine 0.96 Kidneys bladder: Unremarkable November 13: White count 12 hemoglobin 6.9 platelets 276 potassium 4.4 creatinine 1.21 magnesium 1.8 iron 6 TIBC 365% saturation 1.64 transferrin 261 ferritin 34.6 B12 569 folate 4.4 November 11: Creatinine 0.86 EGD: Large amount of retained solid liquid food noted in the stomach. Large superficial gastric antral ulceration involving most of the antrum extending into the pylorus causing pyloric stenosis. Biopsies were obtained. Chest x-ray film personally reviewed by me-scattered infiltrates Assessment plan: -Aspiration pneumonitis bilateral from retained gastric contents mostly food and liquids, causing acute hypoxic respiratory failure: Subsequent sputum culture November 25: Citrobacter freundii, Pseudomonas aeruginosa IV meropenem Pulmonary following -Acute pulmonary edema and fluid overload from hypoalbuminemic state and fluids from IV.:: Has been getting Lasix and dialysis -Altered mentation. Possibly encephalopathy. Could be delirium. CT brain [December 06] nothing acute Neurology following EEG done today-pending results -Small l bowel perforation at site of jejunostomy tube tip with balloon..: Portion of small bowel resected. On November 24. New J-tube was placed.- drainage to gravity:-Now discontinued Trickle feeding at 10 cc an hour being tolerated -Acute kidney injury. Possible ATN from hypotensive shock: Slow to respond Renal ultrasound unremarkable. Started on renal replacement therapy on November 28. Followed by nephrology -Nutrition Jejunostomy tube placed November [address] Ewing Getting TPN. Trickle feeds through J-tube at 20 cc an hour -Acute recurrent atrial fibrillation-converted to sinus rhythm Received IV amiodarone. Cardiology following Lopressor -Acute hypoxic respiratory failure from aspiration pneumonia, status post ventilator assisted: Reintubated November 25. FiO2 35 PEEP of 5 -Septic shock, recovered -Hypertension Patient started on Cleviprex-discontinued -Intermittent hypotension Intermittent use of Levophed. 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 Also anemia of blood draw. Iron deficiency anemia Received 2 unit of blood. IV iron. -Severe thrombocytopenia. Would consider coagulation disorder secondary to infection., In the setting of underlying lymphoma.: Slow to respond Hematology following. -Acute blood loss anemia, Received 2 units of blood -GERD PPI -Acute diarrhea secondary to tube feeding.: Resolved C. difficile ruled out. -Large superficial gastric antral ulceration involving the gastric antrum extending into the pylorus with gastric outlet obstruction. 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 Port placed. For outpatient PET scan. -Full code Hemodialysis today. Tube feeding was temporarily held now being resumed. Plan for tracheostomy. Spoke to the at the bedside. Past Medical History Past Medical History: GERD/Reflux History of Any Multi-Drug Resistant Organisms: None Reported Past Surgical History: Heart Catheterization Additional Past Surgical History / Comment(s): colonsocopy,spinal injection, Past Anesthesia/Blood Transfusion Reactions: No Reported Reaction Past Psychological History: No Psychological Hx Reported Smoking Status: Never smoker Past Alcohol Use History: None Reported Past Drug Use History: None Reported
--- NOTE | 2023-12-09 16:27 | FL ---
EXAMINATION TYPE: FL guided central line placemt DATE OF EXAM: 11/16/2023 1:10 PM COMPARISON: Pre Operative Images if available both CT/MRI or plain film CLINICAL INDICATION: Male, 73 years old with history of MEDIPORT PLACEMENT; TECHNIQUE: FL guided central line placemt, multiple fluoroscopic images provided for procedure. Total fluoroscopy time: 1min 26 seconds Total submitted images to PACS: 1 DAP: 8.8792 mGym2 Gycm2 uGym2 cGycm2 or equivalent. FINDINGS: Fluoroscopic imaging for Port-A-Cath insertion, no evidence for pneumothorax. Multilevel degeneration changes of the spine. IMPRESSION: 1. No evidence for intraoperative complication. 2. Please see the operative/procedural note for further details. [facility], , 12/09/2023 4:25 PM
[2023-12-09 16:48] LABS: Glucose,Whole Blood 97 mg/dL (70-110)
--- NOTE | 2023-12-09 16:57 | P.PN ---
Subjective Progress Note Date: 12/09/23 I am Seeing the patient for the first time during this admission. Please refer to Dr. Hernández's note for further details. Seems to the patient has gastric non-Hodgkin's lymphoma. Patient has altered mental status likely due to toxic metabolic encephalopathy and per Dr. Hernández patient had an EEG yesterday which shows generalized cerebral dysfunction which can be seen with toxic metabolic encephalopathy or related to diffuse structural brain abnormality. Also there are sporadic periodic generalized sharp appearing waves seen as a result patient was started on Keppra empirically 500 mg daily. Patient continues to be intubated on the ventilator and is on IV propofol. Family patient is doing much better compared to initial presentation and they feel he is improving mentation arce. He is pending to h ave a trach tomorrow. Objective - Vital Signs Vital signs: Vital Signs Temp 98.8 F 12/09/23 16:00 Pulse 85 12/09/23 16:27 Resp 11 L 12/09/23 16:00 BP 128/63 12/09/23 16:00 Pulse Ox 97 12/09/23 16:00 FiO2 35 12/09/23 16:08 Intake & Output 12/08/23 12/09/23 12/09/23 18:59 06:59 18:59 Intake Total 1407.721 4525.310 988.800 Output Total 995 1290 1520 Balance 448.095 27.310 -531.200 Weight 103.6 kg 103.6 kg Intake: IV 221 129 802 0.9 KVO 110 120 100 Normal Saline Pressure 36 9 27 Saline TPN 75 675 Intake, IV Titration 117.095 228.310 51.800 Amount Dexmedetomidine/0.9% NaCl 117.095 221.941 (Pmx) 400 mcg In Empty Bag 1 bag @ 0.2 MCG/KG/HR 5.485 mls/hr IV .[id number] [facility] Rx#:[id number] Norepinephrine 8 mg In 6.369 Sodium Chloride 0.9% 250 ml @ 0.03 MCG/KG/MIN 6. 368 mls/hr IV .Q24H [facility] Rx#:[id number] propofoL 1,000 mg In 51.800 Empty Bag 1 bag @ 15 MCG/ KG/MIN 9.324 mls/hr IV . [id number] [facility] Rx#:[id number] Tube Feeding 190 60 60 TPN/PPN 825 900 75 TPN 825 900 75 Other 90 Output: Drainage 30 50 180 Right Abdomen 30 50 180 Urine 965 1240 1340 Other: Voiding Method Indwelling Catheter Indwelling Catheter Indwelling Catheter # Bowel Movements 1 ABP, PAP, CO, CI - Last Documented Arterial Blood Pressure 122/56 - Exam General: Lying in bed and does not appear in acute distress. Lung: Intubated on ventilator. Neuro: Is on IV Propofol 20mcg/kg/min. Very limited. Upon calling the patient's name he would look to the right and then look to the left with his head turned and minimally will try to open his eyes otherwise not following commands - Labs CBC & Chem 7: 12/09/23 04:30 12/09/23 04:30 Labs: Abnormal Lab Results - Last 24 Hours (Table) 12/08/23 12/09/23 12/09/23 Range/Units 17:27 00:10 04:30 WBC (3.8-10.6) k/uL RBC (4.30-5.90) m/uL Hgb (13.0-17.5) gm/dL Hct (39.0-53.0) % RDW (11.5-15.5) % Plt Count (150-450) k/uL Neutrophils # (1.3-7.7) k/uL ABG pH (7.35-7.45) ABG HCO3 (21-25) mmol/L ABG Total CO2 (19-24) mmol/L ABG O2 Saturation (94-97) % Hemoglobin (13.0-17.5) gm/dL Sodium 134 L (137-145) mmol/L BUN 98 H (9-20) mg/dL Creatinine 3.57 H (0.66-1.25) mg/dL Glucose 229 H (74-99) mg/dL POC Glucose (mg/dL) 257 H 303 H (70-110) mg/dL Calcium 7.5 L (8.4-10.2) mg/dL 12/09/23 12/09/23 12/09/23 Range/Units 04:30 04:31 04:32 WBC 21.5 H (3.8-10.6) k/uL RBC 2.59 L (4.30-5.90) m/uL Hgb 7.2 L (13.0-17.5) gm/dL Hct 22.0 L (39.0-53.0) % RDW 20.5 H (11.5-15.5) % Plt Count 126 L (150-450) k/uL Neutrophils # 19.5 H (1.3-7.7) k/uL ABG pH 7.47 H (7.35-7.45) ABG HCO3 27 H (21-25) mmol/L ABG Total CO2 28 H (19-24) mmol/L ABG O2 Saturation 98.6 H (94-97) % Hemoglobin 7.1 L (13.0-17.5) gm/dL Sodium (137-145) mmol/L BUN (9-20) mg/dL Creatinine (0.66-1.25) mg/dL Glucose (74-99) mg/dL POC Glucose (mg/dL) 241 H (70-110) mg/dL Calcium (8.4-10.2) mg/dL 12/09/23 Range/Units 11:06 WBC (3.8-10.6) k/uL RBC (4.30-5.90) m/uL Hgb (13.0-17.5) gm/dL Hct (39.0-53.0) % RDW (11.5-15.5) % Plt Count (150-450) k/uL Neutrophils # (1.3-7.7) k/uL ABG pH (7.35-7.45) ABG HCO3 (21-25) mmol/L ABG Total CO2 (19-24) mmol/L ABG O2 Saturation (94-97) % Hemoglobin (13.0-17.5) gm/dL Sodium (137-145) mmol/L BUN (9-20) mg/dL Creatinine (0.66-1.25) mg/dL Glucose (74-99) mg/dL POC Glucose (mg/dL) 147 H (70-110) mg/dL Calcium (8.4-10.2) mg/dL Assessment and Plan Assessment: * Altered mental status, likely due to toxic metabolic encephalopathy, severe * Abnormal EEG. * Aspiration pneumonitis from retained gastric contents * Ventilator dependent respiratory failure * Pulmonary edema * History of small bowel perforation at the site of jejunostomy tube tip with balloon * Acute kidney injury * Acute recurrent atrial fibrillation * Septic shock, recovered * Hypertension * Anemia * Thrombocytopenia, improving Plan: * Stat EEG was performed on 12/08/[address] Hernández: It revealed generalized slowing of severe degree. This is suggestive of generalized cerebral dysfunction as can be seen with toxic metabolic encephalopathy or related to diffuse structural brain about a day. Clinical correlation is recommended. Sporadic, periodic generalized sharp-appearing waves were seen. This may suggest underlying cortical irritability. No electrographic seizure was recorded. * Therefore, Dr. Hernández, empirically started on Keppra 500 mg daily. And recommended repeating EEG in 1-2 days. * CT head performed 12/07/2023 revealed no acute intracranial process. Some atrophy. I personally reviewed CT head agree with the findings. * Patient is generalized weak. Patient has been ICU for extended period of time. At risk for critical illness myopathy. * Pending Trach tomorrow. * For medical management as per critical care and other specialties on board. The plan is discussed with his , daughter who are at bedside and his nurse. Time with Patient: Less than 30
[2023-12-09 23:17] LABS: Glucose,Whole Blood 269 mg/dL (70-110)
[2023-12-10 04:55] LABS: Anisocytosis Moderate; Basophils % (A) 0 %; Eosinophils % (A) 0 %; HCT 20.5 % (39.0-53.0); Hypochromasia Slight; Lymphocytes % (A) 4 %; MCH 27.7 pg (25.0-35.0); MCHC 32.4 g/dL (31.0-37.0); MCV 85.6 fL (80.0-100.0); Mean Platelet Volume 9.9; Monocytes # (A) 0.5 k/uL (0-1.0); Monocytes % (A) 2 %; Neutrophils # (A) 22.4 k/uL (1.3-7.7); Neutrophils % (A) 93 %; Platelet Count 121 k/uL (150-450); RBC 2.39 m/uL (4.30-5.90); RDW 20.8 % (11.5-15.5); WBC 24.1 k/uL (3.8-10.6)
[2023-12-10 04:58] LABS: HGB 6.6 gm/dL (13.0-17.5)
[2023-12-10 05:22] LABS: ALT 55 U/L (4-49); AST 57 U/L (17-59); African American GFR (CKD) 20 (>60 ml/min/1.73 sqM); Albumin 1.8 g/dL (3.5-5.0); Alkaline Phosphatase 171 U/L (38-126); Anion Gap 4 mmol/L; Blood Urea Nitrogen 86 mg/dL (9-20); Calcium 7.6 mg/dL (8.4-10.2); Carbon Dioxide 26 mmol/L (22-30); Chloride 103 mmol/L (98-107); Glucose 283 mg/dL (74-99); Non-African American GFR(CKD) 18 (>60 ml/min/1.73 sqM); Phosphorus 4.7 mg/dL (2.5-4.5); Potassium 4.1 mmol/L (3.5-5.1); Sodium 133 mmol/L (137-145)
[2023-12-10 05:39] LABS: Glucose,Whole Blood 299 mg/dL (70-110)
[2023-12-10 06:13] LABS: ABG Base Excess 2.5 mmol/L; ABG HCO3 26 mmol/L (21-25); ABG Oxygen Saturation 98.1 % (94-97); ABG PCO2 37 mmHg (35-45); ABG PH 7.47 (7.35-7.45); ABG PO2 93 mmHg (83-108); ABG TCO2 28 mmol/L (19-24); Allen Test Performed? Yes
--- NOTE | 2023-12-10 08:40 | P.PN ---
Subjective Patient is seen in follow-up for acute kidney injury. Patient underwent exploratory laparotomy with small bowel obstruction NG tube replacement Sep tem2023. Required Levophed during dialysis and was discontinued around midnight. Intubated. Receiving TPN. Tube feeds held. Nonoliguric. Started on hemodialysis November 29, 2023. Tracheostomy today. Vital signs stable. Off vasopressors. General: Resting in bed. HEENT: Intubated. LUNGS: Scattered rhonchi. HEART: Regular rate and rhythm. ABDOMEN: No drainage. EXTREMITITES: 1+ edema. Objective - Vital Signs Vital signs: Vital Signs Temp 99.6 F 12/10/23 08:24 Pulse 81 12/10/23 08:21 Resp 29 H 12/10/23 08:21 BP 116/51 12/10/23 08:21 Pulse Ox 98 12/10/23 08:21 FiO2 35 12/10/23 08:00 Intake & Output 12/09/23 12/10/23 12/10/23 18:59 06:59 18:59 Intake Total 3039.679 9822.516 286 Output Total 3495 555 450 Balance -8245.178 3003.516 -164 Weight 103.6 kg 102.2 kg Intake: IV 998 1771 286 0.9 KVO 140 240 40 Meropenem 1 gm In Sodium 100 Chloride 0.9% 100 ml @ 33 .333 mls/hr IVPB HS [facility] Rx#:[id number] Normal Saline Pressure 33 36 6 Saline TPN 825 1395 240 Intake, IV Titration 90.546 342.516 Amount Mvi, Adult No.4 with Vit 164 K 10 ml Trace (Conc-1Ml/ Dose) 1 ml Sodium Acetate 60 meq Sodium Chloride 4Meq/ml Vial 68 meq Potassium Chloride 14 meq Calcium Gluconate 2.25 gm Magnesium Sulfate gm 0 .5 gm In Amino Acid 5%- D15w 1,000 ml @ 120 mls/ hr IV .BY DURATION [facility] Rx #:[id number] Norepinephrine 8 mg In 6.333 Sodium Chloride 0.9% 250 ml @ 0.03 MCG/KG/MIN 6. 368 mls/hr IV .Q24H [facility] Rx#:[id number] propofoL 1,000 mg In 90.546 172.183 Empty Bag 1 bag @ 15 MCG/ KG/MIN 9.324 mls/hr IV . [id number] [facility] Rx#:[id number] Tube Feeding 100 80 TPN/PPN 75 TPN 75 Blood Product 0 Rc As-1 Unit 0 [id number] Hemodialysis 400 Output: Drainage 100 100 Right Abdomen 100 100 Urine 1375 455 450 Hemodialysis 1210 Hemodialysis Net Amount 810 Other: Voiding Method Indwelling Catheter Indwelling Catheter ABP, PAP, CO, CI - Last Documented Arterial Blood Pressure 113/50 - Labs CBC & Chem 7: 12/10/23 04:30 12/10/23 04:30 Labs: Abnormal Lab Results - Last 24 Hours (Table) 12/09/23 12/09/23 12/10/23 Range/Units 11:06 23:16 04:30 WBC 24.1 H (3.8-10.6) k/uL RBC 2.39 L (4.30-5.90) m/uL Hgb 6.6 L* (13.0-17.5) gm/dL Hct 20.5 L (39.0-53.0) % RDW 20.8 H (11.5-15.5) % Plt Count 121 L (150-450) k/uL Neutrophils # 22.4 H (1.3-7.7) k/uL ABG pH (7.35-7.45) ABG HCO3 (21-25) mmol/L ABG Total CO2 (19-24) mmol/L ABG O2 Saturation (94-97) % Hemoglobin (13.0-17.5) gm/dL Sodium (137-145) mmol/L BUN (9-20) mg/dL Creatinine (0.66-1.25) mg/dL Glucose (74-99) mg/dL POC Glucose (mg/dL) 147 H 269 H (70-110) mg/dL Calcium (8.4-10.2) mg/dL Phosphorus (2.5-4.5) mg/dL ALT (4-49) U/L Alkaline Phosphatase (38-126) U/L Total Protein (6.3-8.2) g/dL Albumin (3.5-5.0) g/dL Crossmatch 12/10/23 12/10/23 12/10/23 Range/Units 04:30 05:15 05:38 WBC (3.8-10.6) k/uL RBC (4.30-5.90) m/uL Hgb (13.0-17.5) gm/dL Hct (39.0-53.0) % RDW (11.5-15.5) % Plt Count (150-450) k/uL Neutrophils # (1.3-7.7) k/uL ABG pH (7.35-7.45) ABG HCO3 (21-25) mmol/L ABG Total CO2 (19-24) mmol/L ABG O2 Saturation (94-97) % Hemoglobin (13.0-17.5) gm/dL Sodium 133 L (137-145) mmol/L BUN 86 H (9-20) mg/dL Creatinine 3.31 H (0.66-1.25) mg/dL Glucose 283 H (74-99) mg/dL POC Glucose (mg/dL) 299 H (70-110) mg/dL Calcium 7.6 L (8.4-10.2) mg/dL Phosphorus 4.7 H (2.5-4.5) mg/dL ALT 55 H (4-49) U/L Alkaline Phosphatase 171 H (38-126) U/L Total Protein 5.0 L (6.3-8.2) g/dL Albumin 1.8 L (3.5-5.0) g/dL Crossmatch See Detail 12/10/23 Range/Units 06:08 WBC (3.8-10.6) k/uL RBC (4.30-5.90) m/uL Hgb (13.0-17.5) gm/dL Hct (39.0-53.0) % RDW (11.5-15.5) % Plt Count (150-450) k/uL Neutrophils # (1.3-7.7) k/uL ABG pH 7.47 H (7.35-7.45) ABG HCO3 26 H (21-25) mmol/L ABG Total CO2 28 H (19-24) mmol/L ABG O2 Saturation 98.1 H (94-97) % Hemoglobin 6.7 L* (13.0-17.5) gm/dL Sodium (137-145) mmol/L BUN (9-20) mg/dL Creatinine (0.66-1.25) mg/dL Glucose (74-99) mg/dL POC Glucose (mg/dL) (70-110) mg/dL Calcium (8.4-10.2) mg/dL Phosphorus (2.5-4.5) mg/dL ALT (4-49) U/L Alkaline Phosphatase (38-126) U/L Total Protein (6.3-8.2) g/dL Albumin (3.5-5.0) g/dL Crossmatch Assessment and Plan Plan: Assessment: 1. Acute kidney injury secondary to ATN secondary to septic shock. Creatinine 0.86 on admission and up to 5.38 dated November 29, 2023. Urine output improved, now nonoliguric. UA fairly benign. No hydronephrosis noted on imaging. Started on hemodialysis November 29, 2023 due to volume overload. Patient initially had a right femoral catheter placed which subsequently became occluded and a left femoral catheter was placed December 06, 2023. 2. Perforated small bowel status post exploratory laparotomy with abdominal washout, small bowel resection and J-tube replacement November 25, 2023. 3. A-fib with RVR. s/p amiodarone drip. Also received digoxin this admission. 4. Recently diagnosed gastric B-cell lymphoma. 5. Septic shock. Likely abdominal source. On IV antibiotics. Off vasopressors now. 6. Hypocalcemia secondary to acute kidney injury. Replaced. Improved. 7. Metabolic acidosis secondary to acute kidney injury. Improved. 8. Volume overload. Improved with diuresis and ultrafiltration. Plan: Hold off on hemodialysis today as patient became hypotensive requiring Levophed yesterday. Will plan for tomorrow. Maintain IV Lasix. Receiving TPN. Tube feeds currently held. Avoid nephrotoxins. Preserved EF noted on echocardiogram. Wean FiO2. Scheduled for tracheostomy today. Scheduled receive a unit of blood today. IV DDAVP x 1 dose today. Phosphorus level 4.7 dated December 10, 2023.
--- NOTE | 2023-12-10 08:43 | XR ---
EXAMINATION TYPE: XR chest 1V portable DATE OF EXAM: 12/10/2023 COMPARISON: NONE HISTORY: SOB, Follow Up FINDINGS: Indwelling tubes and catheters are unchanged. No change in bilateral opacities. Stable appearance of the cardio-mediastinal structures at this time. Pleural effusion unchanged. IMPRESSION: 1. Stable portable chest. Clinical correlation and follow up until resolution is recommended. [facility], , 12/10/2023 8:40 AM
[2023-12-10] MEDS: DARBEPOETIN ALFA 40 MCG/0.4 ML SYRINGE SQ SCH (09:27)
[2023-12-10] MEDS: DESMOPRESSIN ACETATE 26 MCG in SODIUM CHLORIDE 0.9% 50 ML IVPB ONE (10:37)
--- NOTE | 2023-12-10 11:12 | P.PN ---
Subjective Progress Note Date: 12/10/23 This is a 73-year-old white male with history of chronic abdominal pain for the last 8 months has been treated with Protonix 40 mg daily for the last 3 months with no improvement. Patient had a 22 pound weight loss in the last [address] of the abdomen and pelvis 3 weeks ago showed thickening of the antral wall with pathological adenopathy posterior to the stomach suspicious of neoplasm. Today the patient underwent elective upper endoscopy to evaluate further, patient received IV sedation by anesthesia endoscope was inserted into the mouth, esophagus was intubated without any difficulty there was evidence of large amount of liquid and solid food noted in the stomach suggestive of gastric outlet obstruction. Scope could not be advanced through the pylorus, however in the prepyloric area there was a large superficial ulceration identified with multiple biopsies were done from this area. The body cardia and fundus could not adequately visualize because of large amount of retained food in the stomach. Scope was withdrawn back to the stomach and upon careful examination the mucosa of the antrum body and cardia as well as the fundus appeared normal. Procedure was being performed and biopsies were done patient threw up and subsequently became hypoxic there was clearly evidence of witnessed aspiration anesthesia intubated the patient, procedure was terminated, and the patient was transferred to the ICU, this consult was initiated. Patient is now on assist- control rate of 20 tidal volume 500 FiO2 70% PEEP of 10 ABG is pending, earlier ABG showed profound hypoxia patient is on propofol at 50 mcg/kg/min, next ABG is pending. Chest x-ray showed chronic changes without evidence of acute pulmonary disease. Patient was seen and examined today on 11/13/2023, remains in the ICU, intubated mechanically ventilated, on assist-control rate of 20 tidal volume 500 FiO2 50% and PEEP of 10 ABG showed a pO2 of 143 pCO2 47 pH of 7.28 hence PEEP was cut down to 6, and increased rate to 22. Patient is still requiring IV fluid at 100 cc/h/LR. Requiring norepinephrine at 0.08 mcg/kg/min he is also on propofol at 50 mg/kg/min antibiotics arce patient is receiving Zosyn. Chest x-ray is damion wing worsening infiltrates specially in the left lung. This could be related to aspiration pneumonia. Patient had witnessed aspiration during endoscopy/upper endoscopy.WBC count is 14 hemoglobin 7.6 basic metabolic profile is normal BUN is 26 creatinine 1.57 obviously the patient sustained some acute kidney injury baseline creatinine 0.86 patient had received fluids over the last 24 hours, remains on fluids at 100 cc/h Patient with seen and examined today on 11/14/2023, patient remains in the ICU, intubated and mechanically ventilated. Failed weaning trial yesterday and he became quite agitated and desaturated once he went off propofol. Had to be placed back on assist-control mode of mechanical ventilation and sedation. Today the patient is on assist-control rate of 22 tidal volume 500 FiO2 50% PEEP of 6. ABG showed a pO2 of 123 pCO2 51 pH of 7.32, and I cut down his FiO2 down to 45%, patient is receiving a unit of packed RBCs for hemoglobin of 6.9 today. Patient had an episode of A-fib RVR at 3 AM in the morning, seen by cardiology, and recommended patient goes on amiodarone. Still requiring norepinephrine at 0.05 mg/kg/min, he is on LR at 100 cc/h propofol at 50 mg/kg/min. Remains empirically on Zosyn for aspiration pneumonia. My plan today is transitioning the patient to Precedex, hopefully discontinue propofol, and at least give the patient a decent weaning trial or at least check weaning parameters before we proceed to weaning trial. Chest x-ray continues to show evidence of pneumonia mostly in the left lung and left lower lobe more specifically. Some pulmonary vascular congestion is noted with interstitial edema, small pleural effusion is also noted/left side. WBC count today is 12 hemoglobin 6.9 basic metabolic profile is normal bicarb is 25, BUN is 25 creatinine is improving down to 1.21 from 1.57 yesterday Patient was evaluated today on 11/15/2023, patient remains in the ICU, he was extubated yesterday, and his extubation was relatively uneventful. However the patient continues to have nasogastric tube in place, his pathology report came back showing non-Hodgkin's lymphoma, patient has gastric outlet obstruction, and the recommendation by GI is to consult surgery for a jejunostomy tube which is appropriate. Patient will be seen today by oncology and he will be seen by general surgery. In the meantime patient is comfortable, he is on 5 L nasal cannula he has LR running at 100 cc/h, he is remains on Zosyn for aspiration pneumonia remains on amiodarone which was started by cardiology for atrial fibrillation with RVR, presently in sinus rhythm. Cannot switch him to oral because of the fact that remains n.p.o., patient remains on TPN. WBC count is 10.7 hemoglobin 7.5 electrolytes are normal renal profile is normal, creatinine normalized to 0.96 Patient was evaluated today on 11/16/2023, remains in the ICU, on 5 L nasal cannula remains on amiodarone at 0.5 mg/min remains on LR at 100 cc/h, however his chest x-ray is showing some component of interstitial edema or could be findings related to his recent episode of aspiration/aspiration pneumonia, nonetheless the patient seems to be a bit symptomatic, he has intermittent cough and wheezing, I am recommending Lasix 40 mg IV push, cut down his IV fluid to 50 cc/h, continue Zosyn, patient will be placed on DuoNeb updrafts and on Solu- Medrol. Patient is scheduled to have jejunostomy-tube placement today. WBC count is 13 hemoglobin 7.7 basic metabolic profile is normal and renal profile is normal Patient was evaluated today on 11/17/2023, patient underwent uneventful placement of a jejunostomy tube yesterday, in the ICU on 5 L, patient is relatively stable, not in any distress, patient continues to have nasogastric tube in place although he did have a J-tube placed yesterday. Patient was seen by oncology for his non-Hodgkin's lymphoma involving the gastric outlet. Today's x-ray showed evidence of pneumonia/bilateral interstitial infiltrate/edema patient was given a dose of Lasix, I reminded the patient had an aspiration episode which was significant. And he required intubation mechanical ventilation for a few days.WBC count today is 9.1 hemoglobin 7.9 electrolytes are normal renal profile is normal hence I plan to transfer the patient out of the ICU to a cardiac floor. And hopefully discharge planning in the next 2 days for The patient was seen today November 18, 2023 in follow-up in the intensive care unit. He is currently sitting up in bed. Awake and alert in no acute distress. He is maintaining O2 saturations in the 90s on 5 L/min per nasal cannula. Glucose 177. Remains on DuoNeb inhalations and Solu-Medrol. Antibiotics in the form of Zosyn. He has a J-tube in place. He was initiated on vital AF 1.2 at 10 mL an hour with a goal of 82 mL/h The patient is seen today November 19, 2023 in follow-up in the intensive care unit. He is a regular medical floor overflow patient. He is currently sitting up in a chair. Awake and alert in no acute distress. He is maintaining O2 saturations in the 90s on 5 L/min per nasal cannula. No IV fluids. He denies any worsening shortness of breath, cough or congestion. He is having some issues with diarrhea. He remains on Zosyn. He is receiving vital AF at 55 mL/h with a goal of 82 mL/h. Glucose 161. Solu-Medrol, DuoNeb inhalations. The patient is seen today November 20, 2023 in follow-up on the regular medical floor. He is currently up in a chair at the bedside. Awake and alert in no acute distress. Denies any worsening shortness of breath, cough or congestion. He is maintaining O2 saturation in the 90s on 3 L/min per nasal cannula. He continues on Zosyn. Continues on bronchodilators and steroids. White count 12.3. Hemoglobin 9.0. Platelets 258. Glucose 168. He is not tolerating his tube feeds as he has developed diarrhea. C. difficile screen was negative. Abdominal series revealed cardiomegaly with left basilar acute infiltrate and/or atelectasis. Overall nonspecific bowel gas pattern. A small bowel obstruction needs to be considered. Progress note dated November 21, 2023. The patient is seen in room 517. The patient is currently on 3 L of oxygen. He continues on Zosyn. His biggest complaint has been abdominal discomfort and diarrhea. He did have a CT scan of the abdomen and pelvis. Current laboratory data includes a white count of 14.4, hemoglobin 8.8, hematocrit 28.7, and platelet count 229,000. Sodium 139, potassium 4.1, chlorides 103, CO2 30, BUN 42, creatinine 0.94. Glucose is 158. Calcium is 8.5. Progress note dated November 22, 2023. 73-year-old male seen in room 517. He currently is on 2 L of oxygen. Room air saturation was 89%. Chest CT shows bilateral patchy infiltrates. He continues on Zosyn. He is still not taking anything by mouth. No new laboratory data today other than a glucose of 138. Gram stain was negative. Progress note dated November 23, 2023. 73-year-old male seen in room 517. He is resting comfortably without complaints. He continues on saline at 10 cc an hour, tube feedings with Pivot at 20 cc an hour, Zosyn, and 2 L by nasal cannula. He has had an uneventful night. Laboratory data today includes a white count 14.5, hemoglobin 9.7, hematocrit 31.4, and a platelet count of 242,000. Sodium 138, potassium 3.7, chlorides 106, CO2 26, BUN 39, creatinine 0.95. Glucose is 181. Calcium is 8.5. Sputum sampling was negative. Progress note dated November 24, 2023. 73-year-old male who is seen in room 517. The patient has been having significant abdominal discomfort, and went for a evaluation, ordered by surgery today, to determine whether or not the feeding tube, was in proper position, and whether or not there is anything acutely going on in the abdomen. He had been having diarrhea. He is on 3 L of oxygen. He has been here for 12 days. This is a patient, that had a prior EGD, aspirated, because of gastric outlet obstruction, and was diagnosis of non-Hodgkin's lymphoma. He is currently on Zosyn, DuoNebs, and Solu-Medrol. He has been NPO. Chest x-ray showed a left lower lobe infiltrate. Abdominal x-ray showed multiple air-fluid levels. CT of the abdomen showed multiple dilated small bowel loops, consistent with obstruction, pneumoperitoneum, ascites, and cholelithiasis. White count was 14.1, hemoglobin 8.9, hematocrit 29.5, and platelet count was 255,000. Glucose was 143. 11/25/2023, the patient is being seen in the intensive care unit. The patient is critically ill, n.p.o., he has an NG tube in place. Following the NG tube insertion, there was a total of 2.0 L of output and the patient's J-tube was also draining approximately 200 cc over the past 8 hours. Continues to have abdominal pain which is rather diffuse and the patient has direct abdominal tenderness. CAT scan of the abdomen was noted and was consistent with small bow el obstruction. The patient has a stomach that was inflated and in the same time there were multiple loops of small bowel distended with fluid. This extended to the pelvis. J-tube with contrast nondilated small bowel loops within the mid abdomen. Additional loops of small bowel were seen that was dilated. There was some contrast in the right lower quadrant and contrast was also in the cecum. No transition point was identified. The dilated loops of the bowel appeared to be in the proximal jejunum and distal to the duodenum. General surgery is on the case the patient will be taken to the operating room for another exploratory laparotomy. Noted the CAT scan of the abdomen also showed pneumoperitoneum and small amount of ascites and cholelithiasis. Hemodynamically, the patient is currently on normal saline at rate of 75 cc an hour. He is hypotensive and is going to be started on pressors. He is on 4 L of oxygen by nasal cannula. He also has sustained acute kidney injury. Blood work from today shows a rise in the creatinine which is currently up to 2.5 with a BUN of 57. Serum bicarb is at 14 with an anion gap of 11. The patient WBC count is at 8.2 with a hemoglobin of 12.3 and a platelet count of 188. Chest x- ray from this morning is showing a right-sided port and a stable left lung airspace disease and an NG tube being in place. The patient remains on IV Zosyn. The patient is receiving Dilaudid for pain control. The patient remains on IV Solu-Medrol 60 mg every 6 hours. It was noted that the patient's surgical wound over the port has dehisced and there is some serous drainage and erythema at the incision site. Awake and alert and communicating. Family at the bedside. No apparent signs of respiratory distress at this point. 11/26/2023, the patient is being seen in follow-up. Events from yesterday was noted and the patient was taken to the operating room for exploratory laparotomy. The patient was found to have large amount of free fluid noted in the abdomen and there was significant contamination. There was perforation of the small bowel with the balloon of the previously inserted jejunostomy tube penetrating through the perforation. As such, the tube was removed, abdominal washout was done. Small bowel resection was done and the patient had a nodular jejunostomy tube inserted. Postop, the patient was extubated he was unable to tolerate extubation and the patient was kept intubated on mechanical ventilator and he was brought back to the intensive care unit. He is currently postop day #1 following his small bowel resection. Abdominal surgical wound site is dry clean and intact. This morning, the patient remains sedated on propofol which is currently running at 35 mcg/kg/min. He is on assist-control mode of mechanical ventilation at rate of 28, tidal volume of 550, FiO2 of 60% with a PEEP of 5. Blood gas from today shows a pH of 7.35 with a pCO2 44 and pO2 of 88. Chest x-ray shows adequate positioning of the orotracheal tube. The patient has a Mediport on the right and a subclavian triple-lumen catheter on the left and the patient has persistent bilateral pleural effusion and infiltrates in lung base bilaterally. Hemodynamically, the patient remains in shock. He has been on high-dose norepinephrine which is currently running at 0.28 mcg/kg/min and the patient is also on vasopressin at 0.03 units an hour. He is IV fluids are in the form of bicarb infusion running at rate of 150 cc an hour. He is in sinus tachycardia. NG tube output has been 250 cc over the past 8 hours and the output from the J-tube is minimal at this point in time. Urine output is quite diminished as the patient has also sustained acute kidney injury. Overall fluid balance is +4.9 L over the past 24 hours. The patient's white cell count of 5.7 with a hemoglobin 9.9 and platelet count of 172. BUN is 72 with a creatinine of 2.8 and sodium levels at 143. The calcium level is at 6.5. LFTs are normal. Triglyceride level is at 315. On 11/27/2023, the patient remains critically ill. Remains intubated and on mechanical ventilator, still awaiting shock which is essentially septic shock. Remains on propofol which is running at 50 mcg/kg/min. Remains on the mechanical ventilator, assist-control mode with rate of 28, tidal volume of 550 with an FiO2 of 60% with a PEEP of 5. Blood gas shows a pH of 7.29 with a pCO2 of 47 and pO2 of 78. The patient had a follow-up chest x-ray that showed lower lobe consolidation slightly worse on the right and the orotracheal tube is in a good location. Urine output is diminished in the order of 5 to 10 cc an hour and the patient is also developing progressive worsening renal function. Remains on normal citrate of 150 cc an hour and the patient was started on TPN which is running at 30 cc an hour. He has a triple-lumen catheter in his left subclavian. Overall fluid balance over the past 24 hours is +3.9 L. Output from the NG tube and the J-tube is minimal. Hemodynamically, he is hypotensive and norepinephrine running at 0.45 mcg/kg/min. Vasopressin is a physiologic dose. He received amiodarone and he remains on maintenance amiodarone of 0.5 mg/min and the patient continues to be in atrial fibrillation and is having episodes of tachycardia. The white cell count is at 13, hemoglobin 9.4 platelet count is pending. The patient's BUN is 83 with a creatinine of 3.7. Sodium is at 140 with a potassium level of 5.5 dropped down to 4.4 as the sample was hemolyzed. LFTs are normal. Abdominal wound is dry clean and intact. RAYA drainage is essentially serous at this point in time. 11/28/2023, the patient is being seen for a follow-up. The patient remains intu bated on mechanical ventilator. This morning, the patient tolerated propofol drip running at 50 mcg/kg/min. The patient is on mechanical ventilator assist- control mode with rate of 28, tidal volume of 550, FiO2 55% with a PEEP of 5. Chest x-ray shows stable findings with lower lobe consolidations bilaterally. Blood gas shows a pH of 7.32 with a pCO2 38 and pO2 90. Neuropathy has improved and the patient is producing approximately 30 cc an hour and the overall input output balance is +3.3 L over the past 24 hours. The patient is still on pressors although his pressor requirements have improved since yesterday. He is on norepinephrine which is running at 0.05 mcg/kg/min and vasopressin physiologic dose. Also, the patient on amiodarone drip regarding his chronic ongoing atrial fibrillation. Amiodarone drip is running at 0.5 mg/min. Nevertheless, the rate is under much better control. Noted the patient was given a dose of digoxin 0.5 mg IV yesterday which helped with rate control. Remains on normal citrate of 150 cc an hour. Remains on TPN at 40 cc an hour. Output from the J-tube is fecal. Output from the NG tube is more gastric. Surgical wound site is dry clean and intact. Sputum Gram stain and culture showing Pseudomonas and Citrobacter. Note that the Citrobacter was intermediate resistance to Zosyn. This will be discussed further with infectious disease. Blood cultures are still pending for now. They have negative based on the most recent check. Blood work from today shows WBC count 11.2, hemoglobin 7.9 and platelet count of 46. Sodium is at 140, potassium is at 4.3, chloride is 114 with a bicarb of 18. He has 93 and the creatinine is 4.8. Serum random vancomycin level is at 25.7. On 11/29/2023, the patient is being seen for a follow-up. Remains intubated on the mechanical ventilator. The patient sedated on propofol which is running at 35 mcg/kg/min. Synchronous with mechanical ventilator. On today's evaluation, he is on assist-control mode with rate of 28, tidal volume of 550, FiO2 55% with a PEEP of 5. Chest x-ray shows lower lobe consolidation bilaterally worse on the right and the orotracheal tube is in good location. The blood gas showed a pH of 7.34 with a pCO2 of 35 and a pO2 of 84. No significant orotracheal secretions. Hemodynamically improved compared to yesterday. In fact, the patient is on minimal norepinephrine that was discontinued earlier this morning. The patient has converted to normal sinus rhythm. Remains on amiodarone at 0.5 mg/min. Overall fluid balance over the past 24 hours is 2.4 L positive. Urine output has been adequate and the patient is currently on IV Lasix. Nevertheless, the patient has developed progressive worsening renal function. Creatinine is up to 5.3 on today's evaluation with a potassium level of 4.4. Serum bicarb is at 18 with an anion gap of 9. WBC count is at 8.1 with a hemoglobin of 7 and a platelet count of 32 which has dropped compared to earlier evaluation. The rest of the coagulation profile was normal from 11/28/2023. Fibrinogen level is slightly elevated. Sputum samples have shown a combination of Citrobacter and Pseudomonas aeruginosa. Based on cultures and sensitivities, the patient will be taken off his IV Zosyn and he will be switched to IV merop enem. Output from the J-tube is fecal. Output from the NG tube is gastric and surgical wound site is dry clean and intact. He is afebrile for now. Hemodynamically, the patient is doing better. He remains on TPN for nutritional support. IV fluids are also running at a rate of 75 cc an hour. Remains on vancomycin. 11/30/2023, the patient is being seen for a follow-up. The patient remains on propofol at 50 mcg/kg/min. Ventilator settings are essentially unchanged. The patient remains on assist-control mode with rate of 18, tidal volume of 400, FiO2 50% with a PEEP of 5. The blood gas showed a pH of 7.37 with a pCO2 of 43 and pO2 of 127. Chest x-ray shows no significant interval change. Patient remains on normal saline at rate of 75 cc an hour and TPN at rate of 35 cc an hour. Fluid balance is positive. Hemodialysis was performed yesterday and the second session of hemodialysis to be done today. The patient's urine output is in the order of 20 to 30 cc an hour. The patient has an NG output of 350 cc for yesterday and the drainage from the J-tube is in the order of 400 cc over the past 24 hours. The blood work shows a WBC count of 10.8, hemoglobin 8.1 and platelet count of 41. Platelet counts are essentially stable and slightly improved compared to yesterday. The sodium level is at 133, potassium is at 4.3, BUN is 93 with a creatinine of 3.6. LFTs are within normal limits. Albumin is down to 2.1. The patient is currently on no pressors. Norepinephrine and vasopressin are both discontinued and the patient remains in normal sinus rhythm. No other significant events overnight. Family has been updated on his condition. Antibiotic coverage is currently with IV meropenem. Vancomycin and Zosyn have been both discontinued. On 12/01/2023, the patient remains sedated on propofol which is running at 25 mcg/kg/min., Comfortable and synchronous mechanical ventilator. The patient remains on assist-control mode rate of 28, tidal volume of 550, FiO2 40% and PEEP of 5. Blood gas shows a pH of 7.49 with a pCO2 of 34 and pO2 of 121. Patient underwent hemodialysis yesterday. No plans for hemodialysis today the patient is producing urine output. Remains on TPN for nutrition support rate of 75 cc an hour. IV fluids are currently at KVO. The chest x-ray from today shows bilateral lower lobe consolidation worse on the right. No significant change in the volume status. The patient continues to have third spacing and edema in all 4 extremities. Nevertheless, urine output is adequate at this point in time and the patient remains on Lasix 80 mg IV every 12 hours. Remains NPO. NG tube and J-tube are both drainage. Output is noted. Remains on IV meropenem. Afebrile. Currently on no pressors. Blood work shows a WBC count of 11.4, hemoglobin of 8.1 and platelet count of 46. Sodium is at 131, potassium level is at 3.7, chloride 101 and bicarb is at 24. BUN is 84 with a creatinine of 3.6. Glucose of 228. LFTs are within normal limits. Patient was reevaluated today on 12/02/23, patient remains in the ICU, patient is familiar to my service, I saw this patient 3 weeks ago. Since then he had a very complicated hospital course, related to his jejunostomy tube dislodging and leaking and picture of abdominal sepsis and worsening pneumonia/ARDS. Patient had to be placed back on mechanical ventilation, and he is now intubated and mechanically ventilated. He is on assist-control rate of 20 tidal volume 550 FiO2 40% PEEP of 5 ABG showed a pO2 of 111 pCO2 38 pH of 7.43 and I cut down his FiO2 to 35% and increase his flow rate from 60-70. Patient remains on TPN at 75 cc/h he is on propofol at 25 mcg/kg/min patient is on Cleviprex which I added today for elevated blood pressure. Receiving Lasix 80 mg every 12 hours is also on Merrem as per infectious disease. Patient is on hemodialysis and being followed by nephrology. Patient required multiple abdominal surgeries since his initial admission. Chest x-ray continues to show worsening pneumonia involving both lungs, right more so than left, I suspect there may be a component of ARDS. His initial presentation was the presentation of aspiration pneumonia to begin with and that was 3 weeks agoWBC count is 10.3 hemoglobin 8.6 sodium 131 potassium 4 chloride 100 bicarb 23 BUN is 111 creatinine 4.02 blood sugar is 248. Albumin is 1.9 Patient was evaluated today on , patient remains in the ICU, intubated and mechanically ventilated. Patient is on assist-control rate of 20 tidal volume 550 FiO2 35% and PEEP of 5 ABG showed a pO2 of 99 pCO2 39 pH of 7.44 patient is undergoing hemodialysis today, and the plan is to remove 2 L. He is remains on propofol at 35 mcg/kg/min, remains on TPN at 75 cc/h. Remains on Merrem. Patient is not requiring any pressors today. Yesterday patient did not tolerate to be off sedation long enough, and today we tried the same sedation interruption, and the patient did not do well post interruption of sedation, became extremely agitated restless, tachycardic, and could not fully assess mental status off sedation. Hence the patient was placed back on AC mode of mechanical ventilation, and the plan is to continue the same supportive care measures. Family updated on his condition and most likely the patient will end up requiring tracheostomy in the next few days.WBC count is 8.5 hemoglobin 8.2 basic metabolic profile is relatively unremarkable BUN is 89 creatinine 3.45 chest x-ray today showed stable chest, suspect some right-sided pleural effusion which would likely improve with hemodialysis/ultrafiltration. X-ray of abdomen showed nonspecific nonobstructive bowel gas pattern Patient was seen today on 12/04/2023, remains in the ICU, intubated mechanically ventilated, on assist-control rate of 20 tidal volume 550 FiO2 35% PEEP of 5 ABG showed a pO2 of 112 pCO2 38 pH of 7.45, hence no changes were made in ventilator settings. Patient is on propofol at 35 mcg/kg/min he is also on IV fluid at KVO TPN at 75 cc/h. Remains on hemodialysis remains on Lasix 80 mg IV push twice daily, remains on Merrem. This x-ray continues to show the same findings/airspace disease in both lungs, not much of a change in the last 2 days, however his oxygenation seems to be improved. WBC count is 7.1 hemoglobin 7.7. Electrolytes are normal, BUN is elevated 77 creatinine 3.32, patient is on hemodialysis. His condition was discussed today with the at bedside, and I do not believe the patient is ready to be weaned or extubated, however he seems to get extremely agitated when he goes off propofol, today I plan to transition propofol to Precedex, give him a trial on Precedex and determine whether the patient becomes more appropriate and at least ready for any weaning trials. Clinically I doubt if this will happen but we will go ahead and try Patient was evaluated today on 12/05/2023, remains in the ICU, intubated mechanically ventilated, not much of a change noted in the last 24 hours. Remains on assist-control of 20 tidal volume 550 FiO2 35% PEEP of 5 ABG showed a pO2 of 90 pCO2 37 pH of 7.48 hence chose not to change any of his ventilator settings. Yesterday the patient failed again trial of weaning, and he was never anywhere near ready to be weaned in spite of placing him on Precedex and off propofol, at 1 point the patient became extremely agitated restless and he was biting on the endotracheal tube could not fully awake the patient and determine improvement in his mental status. Hence patient was placed back on propofol yesterday and he remains on propofol today. He is on propofol at 25 mcg/kg/min he is on TPN at 75 cc/h surgery is considering starting his J-tube feedings today. Remains on hemodialysis remains on Merrem remains on Lasix 80 mg IV push twice daily overall not much of a change his chest x-ray is basically about the same showing bibasilar airspace disease. Today I had a discussion with the regarding the option of tracheostomy extremely reluctant to have it done yet. Said that the patient had multiple complications with previous surgeries and she is afraid that he is going to have another complication with the surgeryWBC count is 10.2 hemoglobin is 8, basic metabolic profile is normal sodium 130 BUN 70 creatinine 2.89 Patient was seen today on 12/06/23, remains in the ICU, intubated mechanically ventilated, his ventilator settings are assist-control rate 20 tidal volume 550 FiO2 35% and PEEP of 5 ABG showed a pO2 of 103 pCO2 36 pH of 7.47 patient opens eyes but does not follow any other instructions. He is now off propofol for the last 24 hours, he is maintained on Precedex at 0.4, TPN at 75 cc/h vital AF at 5 mL/h. Patient remains on Merrem, patient did not receive dialysis today because issues related to occluded dialysis catheter. Nonetheless the patient is making urine, and continues to improve with diuretics. Chest x-ray continues to show bibasilar airspace disease, not much of a exchange architect the last 1 week.WBC count today is 11.8 hemoglobin is 7.9.Basic metabolic profile is normal BUN is 92 creatinine 3.74. Blood sugar is 226. Family is at bedside, considering his overall mental status at this point, not quite ready to start checking weaning parameters, and is not ready for weaning. Nonetheless I plan to keep him on Precedex, and hopefully avoid narcotics and other sedatives. His mentation starts clearing a bit more, then will start trials of weaning parameters and/or weaning trials Patient was seen today on 12/07/2023, remains in the ICU, intubated and mechanically ventilated, on assist-control rate of 20 tidal volume 550 FiO2 35% PEEP of 5 ABG showed a pO2 of 83 pCO2 33 pH of 7.50 hence the tidal volume was cut down to 500. Patient remains off propofol remains off narcotics is only on Precedex for sedation at 0.6 mg/kg/h. He is on norepinephrine at 0.02 TPN at 75 cc/h IV fluid at KVO vital AF at 10 mL/h is also on Merrem. Neurologically I am concerned about this patient neurological status, does not seem to be waking up much, he opens his eyes but does not follow any instructions and spite of sedation hold for quite some time. Hence I am recommending a CT of the brain and multiple recommending a neurological consultation on this patient. WBC count is 18 7 hemoglobin is 8.4, basic metabolic profile is normal BUN is 75 creatinine 2.95, patient is back on dialysis, he had a new hemodialysis catheter placed yesterday by vascular surgery, and he will be restarted back on hemodialysis. CT of the brain done shortly after evaluating the patient showed no acute intracranial process chest x-ray basically about the same, continues to show small left and moderate right basilar infiltrate. Has not changed much over the last 1 week, patient remains on antibiotics. Patient was seen today on 12/08/2023, remains in the ICU, intubated and mechanically ventilated, remains on assist-control rate of 20 tidal volume 500 FiO2 35% PEEP of 5 ABG showed a pO2 of 88 pCO2 37 pH of 7.47 hence no changes were made in ventilator settings. Chest x-ray is showing slight increase in his right-sided pleural effusion, however his oxygenation seems to be about the same, and the patient is responding to Lasix given at 80 mg IV push every 12 hours, he is also doing well with hemodialysis he had 2 L removed yesterday and 2 L the day before. Hence will not recommend thoracentesis at this point. But the pleural effusion will need to be closely monitored. Patient remains off propofol he is on Precedex at 0.6 mcg/kg/h. For the last 2 days, and his mentation is not much different from baseline. Continues to open his eyes and does not follow any other instructions has the patient is clearly not ready for weaning trials or extubation. Brought up the issue of tracheostomy again with the , she is still reluctant to proceed with tracheostomy on him at this point. Patient remains on Merrem, remains on TPN but his enteral feeding will be advanced today to full goal, and if that happens then we will can discontinue TPN. Patient is receiving vital AF 1.2@10 mL/h at this point.WBC count is 19.3 hemoglobin 7.6. Basic metabolic profile is normal BUN is 72 creatinine 2.99 blood sugar ranging between 250 up to 334. 12/09/23 - patient seen at bedside today, remaining in the ICU, intubated and mechanically ventilated, remaining on assist-control rate of 20, tidal volume 500, FiO2 30%, PEEP of 5 and oxygen saturation of 100%. Patient is on day 27 of his hospital stay (admitted 11/11), day 15 of this current ICU stay (readmit to the ICU 11/24) and day 15 of this current period of time on the ventilator (placed 11/24). ABG showed pO2 100, pCO2 36, pH 7.47. Chest x-ray was deemed to be stable, however possibly with slight improvement noted on the left with a right-sided pleural effusion remains evident however the patient's oxygenation remains to be about the same. Continue to receive 80 mg IV Lasix every 12 hours and is receiving daily hemodialysis, in which he has been having 2 L removed the past couple of days, hemodialysis yet to occur today. His creatinine is 3.57 (compared to 2.99 yesterday) and BUN 98 (compared to 72 yesterday). Due to this response to diuresis and hemodialysis, no thoracentesis recommended at this point however pleural effusion will need to continue to be monitored. Patient shon off propofol, he is on Precedex at 0.4 mcg/kg/h. Due to his mentation remaining near baseline, neurology had been consulted who ordered an EEG which showed diffuse background slowing of his severe degree which is suggestive for generalized cerebral dysfunction and can be seen with toxic metabolic encephalopathy, as well as the presence of sporadic intermittent, some higher amplitude, sharply contoured waves of generalized distribution. Because of this per neurology's recommendation, patient started on Keppra 500 mg twice daily. The patient does seem to be having some improved mentation, with opening his eyes and responding to commands some of this morning. Spontaneous breathing trial to be attempted today, to see if the patient will be able to come off of mechanical ventilation. If that is unable to occur, discussed with the patient as well as his and one of his daughters that a tracheostomy would be the most appropriate next course of action due to the potential dangers of sustained endotracheal intubation for prolonged period of time. The , while reluctant, seem to acknowledge that this is the appropriate course of action. He remains receiving meropenem 1 g nightly. He remains on TPN 75 mL/h, which she has been on since 11/21 (18), but his enteral feeding has been vital 1.2 AF at 10 mL/h with a goal rate of 80 mL/h. Patient drained 60 mg of serosanguineous fluid from his RAYA. His WBCs increased to 21.5 (compared to 19.3 yesterday), hemoglobin dropped to 7.2 (compared to 7.6 yesterday), hematocrit dropped to 22.0 (compared to 22.9 yesterday) and patient procalcitonin remains elevated at 3.07. 12/10/23 - Patient seen at bedside today, remaining in the ICU, intubated and mechanically ventilated, remaining on assist-control rate of 20, tidal volume 500, FiO2 30%, PEEP of 5 and oxygen saturation of 100%. Patient is on day 28 of his hospital stay (admitted 11/11), day 16 of this current ICU stay (readmit to the ICU 11/24) and day 16 of this current period of time on the ventilator (placed 11/24). ABG showed pO2 93, pCO2 37, pH 7.47, showing evidence of a mild metabolic alkalosis. Chest x-ray today showed stable disease compared to yesterday. Patient has central line placed yesterday done without any complications. He received levo overnight due to atypical blood pressure, patient's TPN was up to 120 due to the change in formula. Patient is scheduled to undergo tracheotomy today (12/09) at 16:30. Per the nurse and the overnight staff patient continues to open his eyes and shows some responsiveness to commands. Per nephrology's recommendation dialysis to be held today due to the patient going for the tracheotomy later, as well as the dip in blood pressure seen after yesterday's dialysis session which required Levophed. Patient's Hgb this morning 6.6, will be given 1 unit today, which will be the second unit he has received during his hospital course. Patient's airway resistance noted to be 3.3 cm/L/s, static lung compliance shown to be 45 mL/cm H2O and dynamic compliance 33 mL/cm H2O. REVIEW OF SYSTEMS: Could not be assessed , patient on mechanical ventilation and sedated. PHYSICAL EXAMINATION: General: Revealed 73-year-old male intubated, mechanically ventilated, sedated, on Precedex (0.4 mcg/kg/min), off propofol for the last 2 days. Supine position 96% O2 saturation, 35% FiO2 and PEEP of 5 Skin: Skin is warm and dry and no rashes or lesions are noted. HEENT: Pupils are round and equally reacting to light. EOMI. No scleral icterus. No conjunctival pallor. Normocephalic, atraumatic. No pharyngeal erythema. No thyromegaly. Cardiovascular: There is a regular rate and rhythm. No murmur, rub or gallop is appreciated. Respiratory: Diminished breath sounds and crackles at the bases no rhonchi no wheezes Gastrointestinal: J-tube is noted RAYA drain is noted NG tube is in place mild abdominal distention, no rebound, no guarding, no bowel sounds, no significant leak noted from the tubes in the abdomen. Musculoskeletal: No deformities and no limitation range of motion Neurological: Patient does not follow any instructions opens eyes and does not follow any instructions; seems to be following some commands this morning, will continue to monitor Extremities: Trace of bipedal edema Assessment and plan # Acute hypoxic respiratory failure requiring intubation mechanical ventilation secondary to aspiration Continue ventilatory support Continue DuoNeb 3 mL elation 4 times daily, Solu-Medrol 40 mg IV daily Will continue to attempt spontaneous breathing trials as per minutes with the patient, the goal of eventual extubated the patient Tracheotomy scheduled for 12/09 # Acute peritonitis secondary to status post J-tube placement 11/16/2023 # Septic shock secondary to status post J-tube placement 11/16/2023 # Paroxysmal atrial fibrillation Normal on telemetry, patient noted to be in A-fib with RVR Patient was started on amiodarone drip Amiodarone discontinued, patient was on Lopressor 12.5 twice daily however also discontinued # CRISTAL secondary to sepsis and septic shock Patient receiving hemodialysis since 11/28 Noted hyperkalemia and dialysis catheter center dialysis completed on 12/05 New dialysis catheter placed 12/06 dialysis was resumed Removed 2 L each of the past couple of days, pending today Patient's kidney function continues to decline, creatinine 3.57 today (compar ed to 2.99 yesterday) and BUN 98 (compared to 72 yesterday) Continue dialysis, with next treatment being today (09/08); no dialysis today (09/08) due to patient undergoing tracheotomy later today as well as a decrease in blood pressure yesterday during dialysis which required Levophed # Acute aspiration during upper endoscopy most likely secondary to gastric outlet obstruction secondary to non-Hodgkin's lymphoma based on the pathology from stomach biopsies #Cute aspiration at night as secondary to acute aspiration during upper endoscopy most likely secondary to gastric outlet obstruction secondary to non- Hodgkin's lymphoma based on the pathology from stomach biopsies Patient on meropenem 1 g daily, day 11 after starting meropenem Patient had been on IV Zosyn and vancomycin have been discontinued Has received 14 days total of antibiotics, combined Zosyn, vancomycin, meropenem # Weight loss secondary to non-Hodgkin's lymphoma Patient had noted 22 pound weight loss for the past 4 months Biopsy-proven high-grade non-Hodgkin's diffuse large B-cell lymphoma Patient had port placement in regards to future treatment, deferring to medical oncology management, who states the left the patient follow-up in the clinic to determine course of treatment # 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 Patient had port placement in regards to future treatment, deferring to medical oncology management, who states the left the patient follow-up in the clinic to determine course of treatment # Anemia secondary to Patient's Hgb this morning 6.6; patient receiving 1 unit today Continue to monitor patient's Hgb daily If Hgb drops below 7, transfuse GI prophylaxis: 40 mg twice daily Nutrition: TPN 75 mL/h, which she has been on since 11/21 (18), but his enteral feeding has been vital 1.2 AF at 10 mL/h with a goal rate of 80 mL/h Continue to monitor vital signs, monitor CBC, monitor CMP, continue telemetry monitoring, encourage use of incentive spirometer, continue postoperative antibiotic per protocol, postoperative pain management per primary monitor for excessive sedation. Dictation was produced using [employer] dictation software. please excuse any gramma tical, word or spelling errors. Objective - Vital Signs Vital signs: Vital Signs Temp 99.3 F 12/10/23 04:00 Pulse 76 12/10/23 07:00 Resp 25 H 12/10/23 07:00 BP 120/59 12/10/23 07:00 Pulse Ox 100 12/10/23 07:00 FiO2 35 12/10/23 04:00 Intake & Output 12/09/23 12/10/23 12/10/23 18:59 06:59 18:59 Intake Total 5374.940 8194.516 143 Output Total 3495 555 250 Balance -6637.758 7084.516 -107 Weight 103.6 kg 102.2 kg Intake: IV 998 1771 143 0.9 KVO 140 240 20 Meropenem 1 gm In Sodium 100 Chloride 0.9% 100 ml @ 33 .333 mls/hr IVPB HS [facility] Rx#:[id number] Normal Saline Pressure 33 36 3 Saline TPN 825 1395 120 Intake, IV Titration 90.546 342.516 Amount Mvi, Adult No.4 with Vit 164 K 10 ml Trace (Conc-1Ml/ Dose) 1 ml Sodium Acetate 60 meq Sodium Chloride 4Meq/ml Vial 68 meq Potassium Chloride 14 meq Calcium Gluconate 2.25 gm Magnesium Sulfate gm 0 .5 gm In Amino Acid 5%- D15w 1,000 ml @ 120 mls/ hr IV .BY DURATION [facility] Rx #:[id number] Norepinephrine 8 mg In 6.333 Sodium Chloride 0.9% 250 ml @ 0.03 MCG/KG/MIN 6. 368 mls/hr IV .Q24H [facility] Rx#:[id number] propofoL 1,000 mg In 90.546 172.183 Empty Bag 1 bag @ 15 MCG/ KG/MIN 9.324 mls/hr IV . [id number] [facility] Rx#:[id number] Tube Feeding 100 80 TPN/PPN 75 TPN 75 Hemodialysis 400 Output: Drainage 100 100 Right Abdomen 100 100 Urine 1375 455 250 Hemodialysis 1210 Hemodialysis Net Amount 810 Other: Voiding Method Indwelling Catheter Indwelling Catheter ABP, PAP, CO, CI - Last Documented Arterial Blood Pressure 103/55 - Labs CBC & Chem 7: 12/10/23 04:30 12/10/23 04:30 Labs: Abnormal Lab Results - Last 24 Hours (Table) 12/09/23 12/09/23 12/10/23 Range/Units 11:06 23:16 04:30 WBC 24.1 H (3.8-10.6) k/uL RBC 2.39 L (4.30-5.90) m/uL Hgb 6.6 L* (13.0-17.5) gm/dL Hct 20.5 L (39.0-53.0) % RDW 20.8 H (11.5-15.5) % Plt Count 121 L (150-450) k/uL Neutrophils # 22.4 H (1.3-7.7) k/uL ABG pH (7.35-7.45) ABG HCO3 (21-25) mmol/L ABG Total CO2 (19-24) mmol/L ABG O2 Saturation (94-97) % Hemoglobin (13.0-17.5) gm/dL Sodium (137-145) mmol/L BUN (9-20) mg/dL Creatinine (0.66-1.25) mg/dL Glucose (74-99) mg/dL POC Glucose (mg/dL) 147 H 269 H (70-110) mg/dL Calcium (8.4-10.2) mg/dL Phosphorus (2.5-4.5) mg/dL ALT (4-49) U/L Alkaline Phosphatase (38-126) U/L Total Protein (6.3-8.2) g/dL Albumin (3.5-5.0) g/dL 12/10/23 12/10/23 12/10/23 Range/Units 04:30 05:38 06:08 WBC (3.8-10.6) k/uL RBC (4.30-5.90) m/uL Hgb (13.0-17.5) gm/dL Hct (39.0-53.0) % RDW (11.5-15.5) % Plt Count (150-450) k/uL Neutrophils # (1.3-7.7) k/uL ABG pH 7.47 H (7.35-7.45) ABG HCO3 26 H (21-25) mmol/L ABG Total CO2 28 H (19-24) mmol/L ABG O2 Saturation 98.1 H (94-97) % Hemoglobin 6.7 L* (13.0-17.5) gm/dL Sodium 133 L (137-145) mmol/L BUN 86 H (9-20) mg/dL Creatinine 3.31 H (0.66-1.25) mg/dL Glucose 283 H (74-99) mg/dL POC Glucose (mg/dL) 299 H (70-110) mg/dL Calcium 7.6 L (8.4-10.2) mg/dL Phosphorus 4.7 H (2.5-4.5) mg/dL ALT 55 H (4-49) U/L Alkaline Phosphatase 171 H (38-126) U/L Total Protein 5.0 L (6.3-8.2) g/dL Albumin 1.8 L (3.5-5.0) g/dL
[2023-12-10] MEDS: [UNRECOGNIZED DRUG - REMARK] IV SCH (13:52)
[2023-12-10 14:01] LABS: Glucose,Whole Blood 185 mg/dL (70-110)
[2023-12-10 14:26] LABS: Anisocytosis Slight; HCT 27.1 % (39.0-53.0); Hypochromasia Slight; MCH 27.5 pg (25.0-35.0); MCHC 31.6 g/dL (31.0-37.0); Mean Platelet Volume 9.4; Platelet Count 154 k/uL (150-450); RBC 3.11 m/uL (4.30-5.90); RDW 19.4 % (11.5-15.5); WBC 26.1 k/uL (3.8-10.6)
[2023-12-10 14:33] LABS: HGB 8.6 gm/dL (13.0-17.5)
--- NOTE | 2023-12-10 16:57 | P.PN ---
Progress Note - Text Progress Note Date: 12/10/23 Chief Complaint: Aspirated This is a 73-year-old patient, follows with Dr. Patricia Deal. Patient was seen this morning in the ICU. Patient's and daughter at the bedside. History obtained predominantly by the . Patient been having trouble with his stomach symptoms for close to 8 months. Patient underwent EGD by Dr. Sahara Cheng yesterday. Patient was found to have ulcerated around the antrum and obstruction to the pylorus. A lot of retained food was found. Patient aspirated. Had to be intubated and brought to the ICU. On a Levophed drip. FiO2 50 and a PEEP of 6. Patient had been losing weight lost about 25 pounds. Previously has a history of mitral valve prolapse. November 13: ICU. Patient remains on Precedex drip and propofol drip. Did not do well attempted extubation yesterday. Patient been off Levophed. NG tube to suction. Spoke to patient's and son at the bedside. Biopsy results awaited. Hemoglobin dropped to 6.9 this morning. Get a unit of blood. November 14: ICU. Up in a chair. Extubated yesterday. NG tube to suction. at the bedside. 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 Oncology was consulted. They have ordered a port. Results discussed with Dr. Sahara Cheng. General surgery was consulted for J-tube placement. Discussed with at the bedside. Patient getting IV fluids, IV Zosyn,. Patient has been on IV amiodarone for A-fib-back in sinus rhythm. Multiple PACs. Did receive unit of blood yesterday. Also IV ferric gluconate. November 15: ICU. Patient earlier today underwent jejunostomy tube placement and a port placement. Patient awake. Answering questions. NG tube to suction present. Updated patient's . Patient remains on IV amiodarone and IV Zosyn. November 16: ICU. Up in the chair. NG tube present but not to suction. Trickle feeding through the jejunostomy tube should be started today. Dietitian has been on board. IV Zosyn to continue. Patient's and his sister at the bedside. Discussed. Also spoke with Dr. Serna. Given patient has no other predisposing cardiac factors for the A-fib except acute illness. His LV function is normal. Left atrium is normal. He has already been loaded with IV amiodarone. Will switch him to oral Lopressor 12.5 twice daily. Hence will DC amiodarone. Patient yesterday had wheezing was put on bronchodilators steroids per pulmonary. November 17: Propped up in bed. NG tube was discontinued. Sinus rhythm. Remains NPO. Getting G-tube feeding at 40 cc an hour. Dietitian following. Get arrangements done for DC home tomorrow including tube feeding. Increase activity discussed with patient and elder daughter at the bedside. Still requiring oxygen. Incentive spirometry. November 18: Patient up in recliner. Earlier today spoke to social media content manager David. Informed patient is rather weak and will be going to the [facility]. Looking at authorization. Denae came to the room and spoke to patient his and his daughter. They are very keen to take the patient home as 3 daughters all nurses and they will take care of him at home. Patient earlier today to abdominal cramping and some loose stools.'s tube feeding was held. Told the nurse to start back at the rate of 40 cc an hour. He was before the getting it at 55 cc an hour. Incentive spirometry was again emphasized. Patient remains on 4 L of oxygen. November 19: I saw the patient this morning. Hence I am in the evening. Morning was sitting with his sons. Has some edema. Lungs had crackles I gave him 40 mg of Lasix. He did make good urine. Tube feeding was held from the previous evening of because of abdominal cramping. Acute abdominal series showed nonspecific bowel gas pattern and SBO to be ruled out. Family and patient was updated. Told him discharge will depend on day by day. Later this afternoon CT scanAnd abdomen pelvis done. Showed small bowel to be 3 point centimeter dilated. Some anasarca. Gastric findings. Gallstones. Later spoke to Dr. Irby from general surgery. They will further review and decide about further plan of action. Will give further dose of IV Lasix because of fluid overload from likely hypoalbuminemia and IV fluids previously received. Patient may take his pills by mouth. Total time spent today about 1 hour with over 40 minutes of discussion. Patient did state his breathing is better after Lasix this morning. November 20: Saw the patient this morning. was present. Patient received 2 more doses of Lasix. Diuresed well. Breathing much better. Lungs are sounding better. Discussed with Dr. Zepeda other surgeon. He is taking 3 cc out of the balloon and the gastrostomy tube. Started trickle feeding at 5 cc an hour. Will see how this does. Later in the day ran into the and the daughter again. Did update them on the same. Dilaudid was discontinued yesterday but morphine was ordered by surgery for patient having pain. Concerns about GI issues with that we will DC the morphine. As family does not want the same. November 21: Patient reclining bed. Tired. Several family members at the bedside. Including his and eldest daughter. Patient started on trickle feed yesterday at 5 cc an hour. This morning he has been on 10 cc an hour. Still having some loose stools. C. difficile was ordered. Patient on 2 L of nasal cannula. Has diuresed well. Will give an additional dose of Lasix today. If C. difficile is negative and the diarrhea is from the tube feedings we may have to use a fecal management system to keep him comfortable. Otherwise patient remains NPO. Dietitian is following the patient. Care was discussed length with patient the and daughter at the bedside. Questions answered. Liquid Tylenol has been added for abdominal pain. Avoid narcotics. Elevated white count likely from Solu-Medrol 11/23/2023--patient was feeling better today. Multiple family member at bedside. No issues overnight. Normal saline at 10 cc an hour, tube feeding at 20 cc an hour, remains on Zosyn, on 3 L oxygen. Afebrile. Heart rate 62, respiratory rate 16, blood pressure 114/67, saturating 91% on 3 L. WBCs 14.5, 9.7 hemoglobin. Platelet 242. BMP is unremarkable. Pulmonary and general surgery following. General surgery recommended to continue tube feeds at 20 cc/h. 11/24/2023--patient reported significant abdominal discomfort, also noted to have leak around G-tube. General surgery is following, evaluated the patient at bedside, adjusted tube feeds. Also reported having diarrhea, on 2 L oxygen, went up to 5 L. Blood pressure was low, 500 mL fluid bolus with close monitoring of respiratory status ordered. Currently on DuoNebs, Solu-Medrol, will continue Zosyn. Chest x-ray showed a left lower lobe infiltrate. Abdominal x-ray showed multiple air-fluid levels. CT abdomen showed multiple dilated small bowel loops, consistent with obstruction, pneumoperitoneum, cholelithiasis and ascites. WBCs 14.1, platelet 255, hemoglobin 8.9. NG tube in place. Family at bedside. patient transferred to SICU for close monitoring. 11/25/23--patient is currently in the ICU, required Levophed overnight due to low blood pressure, low urine output with creatinine trending up. Nephrology following. System Controller also following. Patient remains n.p.o., NG tube in place, following NG tube insertion patient had total of 2 L output, J-tube was draining approximately 200 cc over last 8 hours, continues to have abdominal pain and abdominal tenderness. Patient on IV fluids. Currently on 4 L oxygen. WBCs 8.2, hemoglobin 12.3, platelet 188. Chest x-ray earlier today showed right sided port and a stable left lung airspace disease, NG tube in place. Patient currently on Zosyn, on IV Dilaudid for pain control, on IV Solu-Medrol. General surgery planning for OR today, started on TPN. 11/26/23--patient was seen and examined today. Patient is currently sedated, intubated on mechanical ventilation. Family at bedside. Patient underwent ex lap, abdominal washout, small bowel resection with new feeding jejunostomy tube placement yesterday, small bowel was noted to be perforated with significant contamination of abdominal cavity. Patient is currently on vancomycin and Zosyn. Creatinine went up to 2.85, nephrology following, recommended to continue IV fluids, avoid nephrotoxin Preserved EF on echocardiogram.. Patient currently on Levophed, vasopressin in the ICU for close monitoring. Patient is afebrile, heart rate 122, blood pressure 129/76, currently on mechanical ventilation, sedated. November 26: ICU. Intubated. FiO2 60 and a PEEP of 5. Drips include IV amiodarone. Heart rate was up early did get fired microgram of IV digoxin and 2.5 mg of IV Lopressor. Did drop her blood pressure bit. Urine output was low. Received 80 mg of IV Lasix. Ahmet to 150 cc. Other drips include IV propofol, vasopressin, Levophed. TPN was started yesterday. Antibiotics include IV Zosyn and vancomycin. Patient has a J-tube to drainage to gravity. Spoke to patient's younger daughter and at the bedside. Prognosis guarded. Continue current treatment plan. Chest x-ray shows right lower lobe consolidation. Small pleural effusion. November 27: ICU. Intubated. FiO2 55 and a PEEP of 5. Antibiotics include IV vancomycin. Drips include Levophed at a small dose, IV vasopressin, propofol, amiodarone. Patient converted to sinus rhythm this morning. Getting TPN and normal saline at 75 cc an hour. Urine output about 25 cc an hour. RAYA drain put out about 260 cc last 12 hours that is last customs director. NG tube with bilious output. And also GI J-tube output to gravity. Spoke to patient's and daughter at the bedside. They understand patient still not out of the kee. Platelets have dropped-therefore probably Zosyn stopped. November 28: ICU. Intubated. FiO2 55 and a PEEP of 5. Patient is in sinus rhythm. Seen this morning. Due for dialysis catheter this afternoon. Urine output about 15 to 20 cc an hour. Patient is on IV Lasix 80 mg every 12. Saline is KVO. Drips include IV propofol vasopressin. Patient having significant output through the RAYA drain and the jejunostomy tube to drainage. Creatinine had been getting worse. Patient's at the bedside. Understands patient's remains critically ill. Hemoglobin is down to 7. Given that patient's pain hypotensive, and on vasopressin we will give a unit of blood with dialysis. Getting TPN antibiotic changed to IV meropenem November 29: ICU. Intubated. FiO2 55 and a PEEP of 5. Remains in sinus rhythm. Getting TPN. Dialyzed yesterday and this morning. About 1000 cc removed. Urine output about 50 cc an hour. Patient is on IV propofol. Off vasopressin. Still having significant output through the RAYA drain and jejunostomy tube. Patient received a second unit of blood yesterday. Patient's and daughter at the bedside. I did discuss guarded prognosis. Did asked them to revisit CODE STATUS.. Getting IV meropenem. November 30: ICU. Intubated. Did get a sedation holiday t today. Back on propofol. Getting TPN. Still getting IV Lasix. Fair urine output. Jejunostomy tube in last 8 hours was about 30 cc output. RAYA drain in the 8 hours had about 180 cc output. Telemetry shows sinus rhythm. NG tube has low intermittent suction with negative output. On the vent with FiO2 40 and a PEEP of 5. No hemodialysis today. Discussed with the and eldest daughter at the bedside. IV meropenem-patient's sputum had grown Citrobacter freundii and Pseudomonas aeruginosa. December 01: ICU. Intubated. Jejunostomy tube to gravity. Only 10 cc output in last 24 hours. RAYA drain. About 190 cc last 6 hours. Nasogastric tube to low intermittent suction. Minimal output. Patient is on a small dose of propofol 5 mics. Telemetry shows sinus rhythm. Patient started on small dose of Cleviprex this morning. Blood pressure. Getting TPN. FiO2 35 and PEEP of 5. Discussed with the at the bedside. Hemodialysis today December 02: ICU. Patient remains intubated. FiO2 35 PEEP of 5. Patient is on IV propofol. IV Cleviprex was discontinued yesterday. Also remains on TPN. Telemetry shows sinus rhythm. NG tube is good no output. Still significant output through the RAYA drain. Jejunostomy tube has minimal output. Patient had hemodialysis today 2 L of fluid was removed. Oral half liters yesterday. Patient getting a sedation holiday. General Surgery started the patient on trickle feeding at 10 cc an hour. I did speak to patient's at the bedside. Prognosis remains guarded but there is some improvement. December 03: ICU. Intubated. FiO2 35 PEEP of 5. Drips include IV propofol and Precedex. Getting TPN. Telemetry shows sinus rhythm. Remains on IV Lasix 80 mg twice a day. IV meropenem. Because patient gets easily agitated when transitioning off propofol he has been switched over to Precedex. For hemodialysis today. December 04: ICU. Intubated. FiO2 35 and a PEEP of 5. Patient been taken off propofol is on Precedex. Telemetry sinus rhythm. J-tube with minimal output. RAYA drain with decreased output. NG tube to suction minimal output. Family wanted to hold off trickle feeding until cleared by oncology. Which he did today. Trickle feeding will be started today. Spoke to patient's and one of the daughters at the bedside. Dr. Russ is spoken to the earlier this point they want to do further tracheostomy tube. December 05: ICU. Intubated. FiO2 35 PEEP of 5. Patient remains on Precedex and PPN. Patient's dialysis catheter was not functioning is getting another [address] Bobby this afternoon. Remains on IV meropenem. Has a RAYA drain in the jejunostomy tube to gravity. NG tube to low intermittent suction. No family at the bedside. December 06: ICU. Intubated. FiO2 35 PEEP of 5. RAYA drain putting out about approximately 120 cc per shift. Patient on IV Precedex. FiO2 35 PEEP of 5. Telemetry-sinus rhythm. Patient occasionally been put on small dose of Levophed specially for hemodialysis getting it today. Also started on midodrine for low blood pressure. Tolerating tube feeding at 10 cc an hour. Also had a bowel movement. Mentation has not improved. Even with sedation holiday. Neurology consulted. CT brain shows no acute process. December 07: ICU. Intubated. FiO2 35 PEEP of 5. Telemetry-sinus rhythm. NG tube to suction low intermittent minimal output. Getting TPN. Tube feeding at 20 cc an hour. RAYA drain averaging over 100 cc per shift. Remains on Precedex. EEG was done today. Discussed with at the bedside. Family is currently not inclined for tracheostomy tube today. Day 13 of being intubated December 08: ICU. Intubated. FiO2 35 PEEP of 5. Patient is put on back on propofol per rate manager Dr. BINGHAM. EEG did show some potential for spikes was put on Keppra by neurology. Telemetry shows sinus rhythm. NG tube to suction with no output. Tube feeding was put on hold because of questionable discharge on the site. Being restarted today. RAYA drain is 150 cc last 12-hour shift. Patient does open eyes. Family has decided to proceed with tracheostomy and surgery has been consulted for the same. Spoke to the at the bedside. For hemodialysis today. December 09: ICU. Intubated FiO2 35 PEEP of 5. Patient seen this morning. Pending tracheostomy placement this afternoon. Remains NPO. G-tube feeding was held overnight. RAYA drain putting out about 100 cc per shift. Received a unit of blood for hemoglobin of 6.6. On 25 mics of propofol. Getting TPN and meropenem. Spoke to the at the bedside. Patient became hypotensive with dialysis yesterday. Levophed had to be given. Only 800 cc were removed yesterday. No hemodialysis today. Active Medications Acetaminophen (Acetaminophen Tab 325 Mg Tab) 650 mg PO Q4HR PRN PRN Reason: Fever and/ or Pain Last Admin: 12/09/23 20:09 Dose: 650 mg Acetaminophen (Acetaminophen Oral Susp (Peds) 3,840 Mg/120 Ml Bottle) 480 mg PO Q4HR PRN PRN Reason: Fever Albuterol/Ipratropium (Ipratropium-Albuterol 3 Ml Neb) 3 ml INHALATION RT-QID NIRMAL Last Admin: 12/10/23 15:06 Dose: 3 ml Albuterol/Ipratropium (Ipratropium-Albuterol 3 Ml Neb) 3 ml INHALATION RT-Q2H PRN PRN Reason: Shortness Of Breath Or Wheezing Last Admin: 12/03/23 03:45 Dose: 3 ml Chlorhexidine Gluconate (Chlorhexidine Gluconate 15 Ml Cup) 15 ml MUCOUS MEM BID NIRMAL Last Admin: 12/10/23 08:44 Dose: 15 ml Darbepoetin Scooby (Darbepoetin Scooby 40 Mcg/0.4 Ml Syringe) 40 mcg SQ Q7D [facility] Last Admin: 12/10/23 09:27 Dose: 40 mcg Dextrose/Water (Dextrose 50% Syringe 50 Ml) 25 ml IVP PER PROTOCOL PRN; Protocol PRN Reason: Hypoglycemia Dextrose/Water (Dextrose 50% Syringe 50 Ml) 50 ml IVP PER PROTOCOL PRN; P rotocol PRN Reason: Hypoglycemia Furosemide (Furosemide 10 Mg/Ml 10 Ml Vial) 80 mg IV Q12H [facility] Last Admin: 12/10/23 05:50 Dose: 80 mg Hydromorphone HCl (Hydromorphone 0.5 Mg/0.5 Ml Syringe) 0.5 mg IVP Q6HR PRN PRN Reason: Pain Last Admin: 12/09/23 22:27 Dose: 0.5 mg Sodium Chloride (Saline 0.9%) 1,000 mls @ 20 mls/hr IV .Q24H [facility] Last Admin: 12/10/23 15:02 Dose: 20 mls/hr Meropenem 1 gm/ Sodium (Chloride) 100 mls @ 33.333 mls/hr IVPB HS [facility] Last Admin: 12/09/23 20:10 Dose: 33.333 mls/hr Norepinephrine Bitartrate 8 mg (/ Sodium Chloride) 258 mls @ 6.368 mls/hr IV .Q24H [facility]; Protocol Last Admin: 12/10/23 14:53 Dose: Not Given Propofol 1,000 mg/ IV Solution 100 mls @ 9.324 mls/hr IV .[id number] [facility]; Protocol Last Admin: 12/10/23 14:58 Dose: 25 mcg/kg/min, 15.54 mls/hr Parenteral Vitamin Supplement 10 ml/ Zinc/Copper/Manganese/Selenium 1 ml/ Sodium Acetate 68 meq/ Sodium Chloride 68 meq / Potassium Chloride 14 meq/Calcium Gluconate 2.25 gm/Magnesium Sulfate 0.5 gm/Amino Acids/Dextrose 1,092.5 mls @ 120 mls/hr IV .BY DURATION [facility] Last Admin: 12/10/23 13:52 Dose: 120 mls/hr Sodium Acetate 68 meq/ Sodium Chloride 68 meq/ Potassium Chloride 14 meq/ Calcium Gluconate 2.25 gm/ Magnesium Sulfate 0.5 gm/ Amino Acids/Dextrose 1,081.5 mls @ 120 mls/hr IV .BY DURATION [facility] Insulin Aspart (Insulin Aspart (Novolog) 100 Unit/Ml Vial) 0 unit SQ 0000,0600,1200,1800 [facility]; Protocol Last Admin: 12/10/23 14:00 Dose: 2 unit Insulin Detemir (Insulin Detemir (Levemir) 100 Unit/Ml Syr) 24 unit SQ DAILY@0700 [facility] Last Admin: 12/10/23 06:47 Dose: 24 unit Levetiracetam (Levetiracetam Iv 500 Mg/5 Ml Vial) 500 mg IVP Q24HR [facility] Last Admin: 12/10/23 08:45 Dose: 500 mg Methylprednisolone Sodium Succinate (Methylprednisolone Sod Succi 40 Mg/Ml 1 Ml Vial) 40 mg IV DAILY@1800 [facility] Last Admin: 12/09/23 17:44 Dose: 40 mg Metoprolol Tartrate (Metoprolol Tartrate 5 Mg/5 Ml Vial) 2.5 mg IVP Q6HR PRN PRN Reason: Heart Rate - HIGH Last Admin: 11/27/23 08:25 Dose: 2.5 mg Midodrine (Midodrine 5 Mg Tab) 5 mg PO AC-TID [facility] Last Admin: 12/10/23 13:51 Dose: Not Given Miscellaneous Information (Magnesium Replacement Protocol 1 Each Misc) 1 each MISCELLANE DAILY PRN; Protocol PRN Reason: Per Protocol Naloxone HCl (Naloxone 0.4 Mg/Ml 1 Ml Vial) 0.2 mg IV Q2M PRN PRN Reason: Opioid Reversal Pantoprazole Sodium (Pantoprazole 40 Mg/10 Ml Vial) 40 mg IVP BID NIRMAL Last Admin: 12/10/23 08:44 Dose: 40 mg Past medical history to include: GERD Social history: . No smoking. Physical examination: VITAL SIGNS: 98.9, 82, 23, 124 x 63, 94% on the ventilator GENERAL: Sedated, right chest wall port EYES: Pupils equal. Conjunctiva edouard l. HEENT: External appearance of nose and ears normal, oral cavity-endotracheal tube. NG tube-low intermittent suction NECK: JVD unable to assess; masses not palpable. HEART: First and second heart sounds are normal; edema, present LUNGS: Respiratory rate increased, decreased breath sounds ABDOMEN: Soft, nontender, liver spleen not palpable, no masses palpable..jejunostomy tube-attached to tube feeding 20 cc an hour. RAYA drain. Incision with stitches PSYCH: Sedated INVESTIGATIONS, reviewed in the clinical context: December 09: White count 26.1 hemoglobin 8.6 platelets 154 potassium 4.1 BUN 86 creatinine 3.31. Hemoglobin this morning was 6.6 prior to transfusion December 08: White count 21.5 hemoglobin 7.2 platelets 126 potassium 4.1 BUN 98 creatinine 3.57 EEG-evidence of generalized cerebral dysfunction and sporadic intermittent higher amplitude sharply contoured waves mainly bifrontal. Showing cortical irritability. Keppra was started on December 07 December 07: White count 8.3 hemoglobin 7.6 platelets 104 sodium 133 potassium 4.2 BUN 32 creatinine 2.99 December 06: White count 18.7 hemoglobin 8.4 platelets 108 sodium 133 potassium 4 BUN 75 creatinine 2.95 December 05: White count 1.8 hemoglobin 7.9 platelets 107 sodium 130 potassium 3.9 BUN 92 creatinine 3.74 Small bowel resection [December 01]: Ischemic active enteritis with focal necrosis and perforation. Serosal fibrous adhesions. Viable margins. December 04: White count 10.2 hemoglobin 8 platelets 90 sodium 130 potassium 4 BUN 70 creatinine 2.89 Sputum culture: [November 25]: Citrobacter freundii. Pseudomonas aeruginosa November 20: White count 14.4 hemoglobin 8.8 platelets 229 potassium 4.1 BUN [address] scan abdomen [November 19] possible small bowel obstruction Stool: C. difficile negative November 16: White count 9.1 hemoglobin 7.9 platelets 259 potassium 4.3 creatinine 0.92 November 15: WBC 13 hemoglobin 7.7 platelets 248 potassium 4.3 creatinine 0.87 2D echo: EF 55 to 60%. November 14: White count 10.7 hemoglobin 7.5 platelets 239 potassium 4.2 creatinine 0.96 Kidneys bladder: Unremarkable November 13: White count 12 hemoglobin 6.9 platelets 276 potassium 4.4 creatinine 1.21 magnesium 1.8 iron 6 TIBC 365% saturation 1.64 transferrin 261 ferritin 34.6 B12 569 folate 4.4 November 11: Creatinine 0.86 EGD: Large amount of retained solid liquid food noted in the stomach. Large superficial gastric antral ulceration involving most of the antrum extending into the pylorus causing pyloric stenosis. Biopsies were obtained. Chest x-ray film personally reviewed by me-scattered infiltrates Assessment plan: -Aspiration pneumonitis bilateral from retained gastric contents mostly food and liquids, causing acute hypoxic respiratory failure: Subsequent sputum culture November 25: Citrobacter freundii, Pseudomonas aeruginosa IV meropenem Pulmonary following -Acute pulmonary edema and fluid overload from hypoalbuminemic state and fluids from IV.:: Has been getting Lasix and dialysis -Altered mentation. Possibly encephalopathy. Could be delirium. CT brain [December 06] nothing acute Neurology following EEG-evidence of generalized cerebral dysfunction and sporadic intermittent higher amplitude sharply contoured waves mainly bifrontal. Showing cortical irritability. Keppra was started on December 07 -Small l bowel perforation at site of jejunostomy tube tip with balloon..: Portion of small bowel resected. On November 24. New J-tube was placed.- drainage to gravity:-Now discontinued Trickle feeding at 10 cc an hour being tolerated -Acute kidney injury. Possible ATN from hypotensive shock: Slow to respond Renal ultrasound unremarkable. Started on renal replacement therapy on November 28. Followed by nephrology -Nutrition Jejunostomy tube placed November [address] Ewing Getting TPN. Trickle feeds through J-tube at 20 cc an hour-held overnight for tracheostomy tube today -Acute recurrent atrial fibrillation-converted to sinus rhythm Received IV amiodarone. Cardiology following Lopressor -Acute hypoxic respiratory failure from aspiration pneumonia, status post ventilator assisted: Reintubated November 25. FiO2 35 PEEP of 5 Ahmet tracheostomy tube today -Septic shock, recovered -Hypertension Patient started on Cleviprex-discontinued -Intermittent hypotension Intermittent use of Levophed. 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 Also anemia of blood draw. Iron deficiency anemia Received 3rd unit of blood today. IV iron. -Severe thrombocytopenia. Would consider coagulation disorder secondary to infection., In the setting of underlying lymphoma.: Recovered Hematology following. -Acute blood loss anemia, Received 30 no blood today -GERD PPI -Acute diarrhea secondary to tube feeding.: Resolved C. difficile ruled out. -Large superficial gastric antral ulceration involving the gastric antrum extending into the pylorus with gastric outlet obstruction. 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 Port placed. For outpatient PET scan. -Full code No hemodialysis today. For tracheostomy tube placement. Prognosis remains guarded. Discussed with at the bedside. Past Medical History Past Medical History: GERD/Reflux History of Any Multi-Drug Resistant Organisms: None Reported Past Surgical History: Heart Catheterization Additional Past Surgical History / Comment(s): colonsocopy,spinal injection, Past Anesthesia/Blood Transfusion Reactions: No Reported Reaction Past Psychological History: No Psychological Hx Reported Smoking Status: Never smoker Past Alcohol Use History: None Reported Past Drug Use History: None Reported
--- NOTE | 2023-12-10 18:00 | P.PN ---
Subjective Progress Note Date: 12/10/23 Remains sedated and ventilated. Plan for tracheostomy Objective - Vital Signs Vital signs: Vital Signs Temp 99.4 F 12/10/23 09:00 Pulse 81 12/10/23 10:00 Resp 30 H 12/10/23 10:00 BP 139/70 12/10/23 10:00 Pulse Ox 98 12/10/23 10:00 FiO2 35 12/10/23 10:00 Intake & Output 12/09/23 12/10/23 12/10/23 18:59 06:59 18:59 Intake Total 3790.394 1072.516 672.00 Output Total 3495 555 745 Balance -0010.816 2811.516 -73.00 Weight 103.6 kg 102.2 kg Intake: IV 998 1771 572 0.9 KVO 140 240 80 Meropenem 1 gm In Sodium 100 Chloride 0.9% 100 ml @ 33 .333 mls/hr IVPB HS [facility] Rx#:[id number] Normal Saline Pressure 33 36 12 Saline TPN 825 1395 480 Intake, IV Titration 90.546 342.516 100.00 Amount Mvi, Adult No.4 with Vit 164 K 10 ml Trace (Conc-1Ml/ Dose) 1 ml Sodium Acetate 60 meq Sodium Chloride 4Meq/ml Vial 68 meq Potassium Chloride 14 meq Calcium Gluconate 2.25 gm Magnesium Sulfate gm 0 .5 gm In Amino Acid 5%- D15w 1,000 ml @ 120 mls/ hr IV .BY DURATION [facility] Rx #:[id number] Norepinephrine 8 mg In 6.333 Sodium Chloride 0.9% 250 ml @ 0.03 MCG/KG/MIN 6. 368 mls/hr IV .Q24H [facility] Rx#:[id number] propofoL 1,000 mg In 90.546 172.183 100.00 Empty Bag 1 bag @ 15 MCG/ KG/MIN 9.324 mls/hr IV . [id number] [facility] Rx#:[id number] Tube Feeding 100 80 TPN/PPN 75 TPN 75 Blood Product 0 Rc As-1 Unit 0 [id number] Hemodialysis 400 Output: Drainage 100 100 50 Right Abdomen 100 100 50 Urine 1375 455 695 Hemodialysis 1210 Hemodialysis Net Amount 810 Other: Voiding Method Indwelling Catheter Indwelling Catheter ABP, PAP, CO, CI - Last Documented Arterial Blood Pressure 111/57 - Constitutional General appearance: Present: no acute distress - Respiratory Details: ventilated breath sounds - Cardiovascular Details: skin warm and dry - Labs CBC & Chem 7: 12/10/23 14:07 12/10/23 04:30 Labs: Abnormal Lab Results - Last 24 Hours (Table) 12/09/23 12/09/23 12/10/23 Range/Units 11:06 23:16 04:30 WBC 24.1 H (3.8-10.6) k/uL RBC 2.39 L (4.30-5.90) m/uL Hgb 6.6 L* (13.0-17.5) gm/dL Hct 20.5 L (39.0-53.0) % RDW 20.8 H (11.5-15.5) % Plt Count 121 L (150-450) k/uL Neutrophils # 22.4 H (1.3-7.7) k/uL ABG pH (7.35-7.45) ABG HCO3 (21-25) mmol/L ABG Total CO2 (19-24) mmol/L ABG O2 Saturation (94-97) % Hemoglobin (13.0-17.5) gm/dL Sodium (137-145) mmol/L BUN (9-20) mg/dL Creatinine (0.66-1.25) mg/dL Glucose (74-99) mg/dL POC Glucose (mg/dL) 147 H 269 H (70-110) mg/dL Calcium (8.4-10.2) mg/dL Phosphorus (2.5-4.5) mg/dL ALT (4-49) U/L Alkaline Phosphatase (38-126) U/L Total Protein (6.3-8.2) g/dL Albumin (3.5-5.0) g/dL Crossmatch 12/10/23 12/10/23 12/10/23 Range/Units 04:30 05:15 05:38 WBC (3.8-10.6) k/uL RBC (4.30-5.90) m/uL Hgb (13.0-17.5) gm/dL Hct (39.0-53.0) % RDW (11.5-15.5) % Plt Count (150-450) k/uL Neutrophils # (1.3-7.7) k/uL ABG pH (7.35-7.45) ABG HCO3 (21-25) mmol/L ABG Total CO2 (19-24) mmol/L ABG O2 Saturation (94-97) % Hemoglobin (13.0-17.5) gm/dL Sodium 133 L (137-145) mmol/L BUN 86 H (9-20) mg/dL Creatinine 3.31 H (0.66-1.25) mg/dL Glucose 283 H (74-99) mg/dL POC Glucose (mg/dL) 299 H (70-110) mg/dL Calcium 7.6 L (8.4-10.2) mg/dL Phosphorus 4.7 H (2.5-4.5) mg/dL ALT 55 H (4-49) U/L Alkaline Phosphatase 171 H (38-126) U/L Total Protein 5.0 L (6.3-8.2) g/dL Albumin 1.8 L (3.5-5.0) g/dL Crossmatch See Detail 12/10/23 Range/Units 06:08 WBC (3.8-10.6) k/uL RBC (4.30-5.90) m/uL Hgb (13.0-17.5) gm/dL Hct (39.0-53.0) % RDW (11.5-15.5) % Plt Count (150-450) k/uL Neutrophils # (1.3-7.7) k/uL ABG pH 7.47 H (7.35-7.45) ABG HCO3 26 H (21-25) mmol/L ABG Total CO2 28 H (19-24) mmol/L ABG O2 Saturation 98.1 H (94-97) % Hemoglobin 6.7 L* (13.0-17.5) gm/dL Sodium (137-145) mmol/L BUN (9-20) mg/dL Creatinine (0.66-1.25) mg/dL Glucose (74-99) mg/dL POC Glucose (mg/dL) (70-110) mg/dL Calcium (8.4-10.2) mg/dL Phosphorus (2.5-4.5) mg/dL ALT (4-49) U/L Alkaline Phosphatase (38-126) U/L Total Protein (6.3-8.2) g/dL Albumin (3.5-5.0) g/dL Crossmatch Assessment and Plan (1) Large B-cell lymphoma Current Visit: Yes Status: Acute Priority: High Code(s): C85.10 - UNSPECIF IED B-CELL LYMPHOMA, UNSPECIFIED SITE SNOMED Code(s): 384292328 (2) Aspiration into airway Current Visit: Yes Status: Acute Priority: High Code(s): T17.908A - UNSP FB IN RESP TRACT, PART UNSP CAUSING OTH INJURY, INIT SNOMED Code(s): 075672300 (3) Gastric outlet obstruction Current Visit: Yes Status: Acute Priority: High Code(s): K31.1 - ADULT HYPERTROPHIC PYLORIC STENOSIS SNOMED Code(s): 809440662 (4) Gastric ulcer Current Visit: Yes Status: Acute Priority: High Code(s): K25.9 - GASTRIC ULCER, UNSP ACUTE OR CHRONIC, W/O HEMOR OR PERF SNOMED Code(s): 982791829 (5) Iron deficiency anemia Current Visit: Yes Status: Acute Priority: High Code(s): D50.9 - IRON DEFICIENCY ANEMIA, UNSPECIFIED SNOMED Code(s): 28897168 Plan: DLBCL of GI tract -Diagnosed from gastric lesion on EGD -MYC +, BCL2 & 6 neg-not dbl or triple hit. Reviewed results with family -Family is aware that treatment for lymphoma would not begin until patient is healed adequately from surgery and extubated [place] -Suspect 2/2 to chronic GI losses, malabsorption. -s/p 4 IV iron infusions -Hgb 6.6 today, additional unit PRBCs ordered Perforated bowel -S/p resection and adjustment of the tube -Perforation at the site of balloon for the j-tube -Reviewed pathology from resected bowel revealing no evidence of lymphoma, but instead revealed ischemic colitis with necrosis -From a hematology/oncology perspective, I did recommend proceeding with feedings through J-tube as long as this was cleared through surgery. -This was also discussed with motor and controls tester. Currently tolerating tube feedings
[2023-12-10 18:15] LABS: Glucose,Whole Blood 226 mg/dL (70-110)
[2023-12-10] MEDS ORDERED: ROCURONIUM 10 MG/ML (5 ML VIAL) IV ONE (18:16)
[2023-12-10] MEDS ORDERED: MIDAZOLAM 2 MG/2 ML VIAL ONE (18:16)
[2023-12-10] MEDS ORDERED: PHENYLEPHRINE 10 MG/ML VIAL ONE (18:16)
[2023-12-10] MEDS: LACTATED RINGERS 1,000 ML IV ONE (18:25)
--- NOTE | 2023-12-10 19:13 | P.OP ---
Date of Procedure: 12/10/23 Preoperative Diagnosis: VDRF Postoperative Diagnosis: VDRF Procedure(s) Performed: Traheostomy Anesthesia: MAC Surgeon: Dick Ewing [address] Freight Brake Coupler #1: Zachary Ruiz Pathology: none sent Condition: critical Disposition: ICU Description of Procedure: Informed consent was reviewed. The patient was delivered to the OR and placed in the supine position. Landmarks were palpated and marked including the: thyroid notch, cricoid, and suprasternal notch. A number #15 blade was used to create a vertical incision extending 3 cm inferiorly from the lower border of the cricoid through dermis. Bovie dissection was employed to remove fat overlying the strap muscles. The strap muscles were grasped with Allis clamps and pulled laterally to identify the midline with hemostat separation of the straps in the midline. The area immediately below the cricoid and above the thyroid isthmus was identified by inspection and palpation and then opened with Bovie electrocautery. Blunt dissection with the tips of the hemostat identifed the anterior tracheal wall. The hemostat was redirected inferiorly to separate the posterior aspect of the thyroid isthmus from the trachea. The thyroid isthmus was divided with a handheld ligasure device. The anterior tracheal wall was further cleaned of overlying soft tissue with Kitners. The tracheal rings were identified. The anesthesiologist was requested to deflate the cuff of the ETT and advance the tip into the right mainstem. A small hemostat was directed toward the trachea and pushed through the membranous ring between 2nd and 3rd cartilaginous rings. A #15 blade to make a horizontal cut in the membranous trachea. Vertical lateral cuts were made on either side of the opening inferiorly through the third cartilaginous ring. The ET tube was pulled back out of the mainstem and cuff inflated with ventilation restored through the ETT. The endotracheal tube was partially removed, so that the tip was just superior to the tracheotomy site. The tracheostomy tube with obturator was then placed. The inner canula was placed, and placement of the tube was confirmed with CO2 return on the anesthesia monitor. The patient tolerated the procedure well and sent to ICU in critical condition.
[2023-12-10 23:23] LABS: Glucose,Whole Blood 297 mg/dL (70-110)
[2023-12-11 05:12] LABS: ABG Base Excess 1.9 mmol/L; ABG HCO3 26 mmol/L (21-25); ABG Oxygen Saturation 99.1 % (94-97); ABG PCO2 38 mmHg (35-45); ABG PH 7.44 (7.35-7.45); ABG PO2 115 mmHg (83-108); ABG TCO2 27 mmol/L (19-24)
[2023-12-11 05:40] LABS: Glucose,Whole Blood 367 mg/dL (70-110)
[2023-12-11 06:11] LABS: African American GFR (CKD) 17 (>60 ml/min/1.73 sqM); Anion Gap 5 mmol/L; Anisocytosis Slight; Basophils % (A) 0 %; Calcium 7.6 mg/dL (8.4-10.2); Carbon Dioxide 26 mmol/L (22-30); Chloride 104 mmol/L (98-107); Eosinophils % (A) 0 %; Glucose 342 mg/dL (74-99); HCT 22.8 % (39.0-53.0); HGB 7.4 gm/dL (13.0-17.5); Hypochromasia Slight; Lymphocytes # (A) 0.9 k/uL (1.0-4.8); Lymphocytes % (A) 4 %; MCH 27.9 pg (25.0-35.0); MCHC 32.3 g/dL (31.0-37.0); MCV 86.4 fL (80.0-100.0); Mean Platelet Volume 9.4; Monocytes # (A) 0.6 k/uL (0-1.0); Monocytes % (A) 3 %; Neutrophils # (A) 19.7 k/uL (1.3-7.7); Neutrophils % (A) 92 %; Non-African American GFR(CKD) 15 (>60 ml/min/1.73 sqM); Platelet Count 129 k/uL (150-450); Potassium 4.2 mmol/L (3.5-5.1); RBC 2.64 m/uL (4.30-5.90); RDW 19.8 % (11.5-15.5); Sodium 135 mmol/L (137-145); WBC 21.3 k/uL (3.8-10.6)
[2023-12-11 06:19] LABS: Blood Urea Nitrogen 111 mg/dL (9-20)
--- NOTE | 2023-12-11 08:21 | XR ---
EXAMINATION TYPE: XR chest 1V portable DATE OF EXAM: 12/11/2023 COMPARISON: 12/10/2023 HISTORY: SOB, Follow Up FINDINGS: Indwelling tubes and catheters are unchanged. Layering effusion right hemithorax as well as scattered infiltrates and/or atelectasis remain unchang ed. Small left-sided effusion noted. Stable appearance of the cardio-mediastinal structures at this time. Pleural effusion unchanged. IMPRESSION: 1. Stable portable chest. Clinical correlation and follow up until resolution is recommended. [facility], , 12/11/2023 8:19 AM
--- NOTE | 2023-12-11 09:48 | P.PN ---
Subjective Patient is seen in follow-up for acute kidney injury. Patient underwent exploratory laparotomy with small bowel obstruction NG tube replacement Sep 2023. Required Levophed overnight but currently off. Intubated. Receiving TPN. Tube feeds to be resumed today. Nonoliguric. Started on hemodialysis November 29, 2023. Status post tracheostomy December 10, 2023. Vital signs stable. Off vasopressors. General: Resting in bed. HEENT: Intubated. NG tube noted. LUNGS: Scattered rhonchi. HEART: Regular rate and rhythm. ABDOMEN: No drainage. EXTREMITITES: 1+ edema. Objective - Vital Signs Vital signs: Vital Signs Temp 99.1 F 12/11/23 08:00 Pulse 80 12/11/23 09:00 Resp 28 H 12/11/23 09:00 BP 107/63 12/11/23 09:00 Pulse Ox 96 12/11/23 09:00 FiO2 30 12/11/23 09:12 Intake & Output 12/10/23 12/11/23 12/11/23 18:59 06:59 18:59 Intake Total 2465.342 1772.213 143 Output Total 1495 1115 75 Balance 970.342 657.213 68 Weight 102.2 kg 104.6 kg Intake: IV 1916 1573 143 0.9 KVO 240 220 20 Normal Saline Pressure 36 33 3 Saline TPN 1440 1320 120 Intake, IV Titration 239.342 199.213 Amount Norepinephrine 8 mg In 16.592 Sodium Chloride 0.9% 250 ml @ 0.03 MCG/KG/MIN 6. 368 mls/hr IV .Q24H [facility] Rx#:[id number] propofoL 1,000 mg In 239.342 182.621 Empty Bag 1 bag @ 15 MCG/ KG/MIN 9.324 mls/hr IV . [id number] [facility] Rx#:[id number] Blood Product 310 Rc As-1 Unit 310 [id number] Output: Drainage 50 200 Right Abdomen 50 200 Urine 1445 910 75 Estimated Blood Loss 5 Other: Voiding Method Indwelling Catheter Indwelling Catheter ABP, PAP, CO, CI - Last Documented Arterial Blood Pressure 142/48 - Labs CBC & Chem 7: 12/11/23 05:35 12/11/23 05:35 Labs: Abnormal Lab Results - Last 24 Hours (Table) 12/10/23 12/10/23 12/10/23 Range/Units 05:15 14:00 14:07 WBC 26.1 H (3.8-10.6) k/uL RBC 3.11 L (4.30-5.90) m/uL Hgb 8.6 L D (13.0-17.5) gm/dL Hct 27.1 L (39.0-53.0) % RDW 19.4 H (11.5-15.5) % Plt Count (150-450) k/uL Neutrophils # (1.3-7.7) k/uL Lymphocytes # (1.0-4.8) k/uL ABG pO2 (83-108) mmHg ABG HCO3 (21-25) mmol/L ABG Total CO2 (19-24) mmol/L ABG O2 Saturation (94-97) % Hemoglobin (13.0-17.5) gm/dL Sodium (137-145) mmol/L BUN (9-20) mg/dL Creatinine (0.66-1.25) mg/dL Glucose (74-99) mg/dL POC Glucose (mg/dL) 185 H (70-110) mg/dL Calcium (8.4-10.2) mg/dL Crossmatch See Detail 12/10/23 12/10/23 12/11/23 Range/Units 18:14 23:22 00:30 WBC (3.8-10.6) k/uL RBC (4.30-5.90) m/uL Hgb (13.0-17.5) gm/dL Hct (39.0-53.0) % RDW (11.5-15.5) % Plt Count (150-450) k/uL Neutrophils # (1.3-7.7) k/uL Lymphocytes # (1.0-4.8) k/uL ABG pO2 115 H (83-108) mmHg ABG HCO3 26 H (21-25) mmol/L ABG Total CO2 27 H (19-24) mmol/L ABG O2 Saturation 99.1 H (94-97) % Hemoglobin 7.4 L (13.0-17.5) gm/dL Sodium (137-145) mmol/L BUN (9-20) mg/dL Creatinine (0.66-1.25) mg/dL Glucose (74-99) mg/dL POC Glucose (mg/dL) 226 H 297 H (70-110) mg/dL Calcium (8.4-10.2) mg/dL Crossmatch 12/11/23 12/11/23 12/11/23 Range/Units 05:35 05:35 05:37 WBC 21.3 H (3.8-10.6) k/uL RBC 2.64 L (4.30-5.90) m/uL Hgb 7.4 L (13.0-17.5) gm/dL Hct 22.8 L (39.0-53.0) % RDW 19.8 H (11.5-15.5) % Plt Count 129 L (150-450) k/uL Neutrophils # 19.7 H (1.3-7.7) k/uL Lymphocytes # 0.9 L (1.0-4.8) k/uL ABG pO2 (83-108) mmHg ABG HCO3 (21-25) mmol/L ABG Total CO2 (19-24) mmol/L ABG O2 Saturation (94-97) % Hemoglobin (13.0-17.5) gm/dL Sodium 135 L (137-145) mmol/L BUN 111 H* (9-20) mg/dL Creatinine 3.77 H (0.66-1.25) mg/dL Glucose 342 H (74-99) mg/dL POC Glucose (mg/dL) 367 H (70-110) mg/dL Calcium 7.6 L (8.4-10.2) mg/dL Crossmatch Assessment and Plan Plan: Assessment: 1. Acute kidney injury secondary to ATN secondary to septic shock. Creatinine 0.86 on admission and up to 5.38 dated November 29, 2023. Urine output improved, now nonoliguric. UA fairly benign. No hydronephrosis noted on imaging. Started on hemodialysis November 29, 2023 due to volume overload. Patient initially had a right femoral catheter placed which subsequently became occluded and a left femoral catheter was placed December 06, 2023. 2. Perforated small bowel status post exploratory laparotomy with abdominal washout, small bowel resection and J-tube replacement November 25, 2023. 3. A-fib with RVR. s/p amiodarone drip. Also received digoxin this admission. 4. Recently diagnosed gastric B-cell lymphoma. 5. Septic shock. Likely abdominal source. On IV antibiotics. Off vasopressors now. 6. Hypocalcemia secondary to acute kidney injury. Replaced. Improved. 7. Metabolic acidosis secondary to acute kidney injury. Improved. 8. Volume overload. Improved with diuresis and ultrafiltration. 9. Status post tracheostomy December 10, 2023. 10. Anemia. Component of chronic illness and acute blood loss. Received blood transfusion and DDAVP this admission. On Aranesp. Plan: Currently seen while undergoing hemodialysis. Maintain IV Lasix. Receiving TPN. Tube feeds to be resumed today. Avoid nephrotoxins. Preserved EF noted on echocardiogram. Phosphorus level 4.7 dated December 10, 2023.
--- NOTE | 2023-12-11 10:28 | P.PN ---
Subjective Progress Note Date: 12/11/23 This is a 73-year-old white male with history of chronic abdominal pain for the last 8 months has been treated with Protonix 40 mg daily for the last 3 months with no improvement. Patient had a 22 pound weight loss in the last [address] of the abdomen and pelvis 3 weeks ago showed thickening of the antral wall with pathological adenopathy posterior to the stomach suspicious of neoplasm. Today the patient underwent elective upper endoscopy to evaluate further, patient received IV sedation by anesthesia endoscope was inserted into the mouth, esophagus was intubated without any difficulty there was evidence of large amount of liquid and solid food noted in the stomach suggestive of gastric outlet obstruction. Scope could not be advanced through the pylorus, however in the prepyloric area there was a large superficial ulceration identified with multiple biopsies were done from this area. The body cardia and fundus could not adequately visualize because of large amount of retained food in the stomach. Scope was withdrawn back to the stomach and upon careful examination the mucosa of the antrum body and cardia as well as the fundus appeared normal. Procedure was being performed and biopsies were done patient threw up and subsequently became hypoxic there was clearly evidence of witnessed aspiration anesthesia intubated the patient, procedure was terminated, and the patient was transferred to the ICU, this consult was initiated. Patient is now on assist- control rate of 20 tidal volume 500 FiO2 70% PEEP of 10 ABG is pending, earlier ABG showed profound hypoxia patient is on propofol at 50 mcg/kg/min, next ABG is pending. Chest x-ray showed chronic changes without evidence of acute pulmonary disease. Patient was seen and examined today on 11/13/2023, remains in the ICU, intubated mechanically ventilated, on assist-control rate of 20 tidal volume 500 FiO2 50% and PEEP of 10 ABG showed a pO2 of 143 pCO2 47 pH of 7.28 hence PEEP was cut down to 6, and increased rate to 22. Patient is still requiring IV fluid at 100 cc/h/LR. Requiring norepinephrine at 0.08 mcg/kg/min he is also on propofol at 50 mg/kg/min antibiotics arce patient is receiving Zosyn. Chest x-ray is damion wing worsening infiltrates specially in the left lung. This could be related to aspiration pneumonia. Patient had witnessed aspiration during endoscopy/upper endoscopy.WBC count is 14 hemoglobin 7.6 basic metabolic profile is normal BUN is 26 creatinine 1.57 obviously the patient sustained some acute kidney injury baseline creatinine 0.86 patient had received fluids over the last 24 hours, remains on fluids at 100 cc/h Patient with seen and examined today on 11/14/2023, patient remains in the ICU, intubated and mechanically ventilated. Failed weaning trial yesterday and he became quite agitated and desaturated once he went off propofol. Had to be placed back on assist-control mode of mechanical ventilation and sedation. Today the patient is on assist-control rate of 22 tidal volume 500 FiO2 50% PEEP of 6. ABG showed a pO2 of 123 pCO2 51 pH of 7.32, and I cut down his FiO2 down to 45%, patient is receiving a unit of packed RBCs for hemoglobin of 6.9 today. Patient had an episode of A-fib RVR at 3 AM in the morning, seen by cardiology, and recommended patient goes on amiodarone. Still requiring norepinephrine at 0.05 mg/kg/min, he is on LR at 100 cc/h propofol at 50 mg/kg/min. Remains empirically on Zosyn for aspiration pneumonia. My plan today is transitioning the patient to Precedex, hopefully discontinue propofol, and at least give the patient a decent weaning trial or at least check weaning parameters before we proceed to weaning trial. Chest x-ray continues to show evidence of pneumonia mostly in the left lung and left lower lobe more specifically. Some pulmonary vascular congestion is noted with interstitial edema, small pleural effusion is also noted/left side. WBC count today is 12 hemoglobin 6.9 basic metabolic profile is normal bicarb is 25, BUN is 25 creatinine is improving down to 1.21 from 1.57 yesterday Patient was evaluated today on 11/15/2023, patient remains in the ICU, he was extubated yesterday, and his extubation was relatively uneventful. However the patient continues to have nasogastric tube in place, his pathology report came back showing non-Hodgkin's lymphoma, patient has gastric outlet obstruction, and the recommendation by GI is to consult surgery for a jejunostomy tube which is appropriate. Patient will be seen today by oncology and he will be seen by general surgery. In the meantime patient is comfortable, he is on 5 L nasal cannula he has LR running at 100 cc/h, he is remains on Zosyn for aspiration pneumonia remains on amiodarone which was started by cardiology for atrial fibrillation with RVR, presently in sinus rhythm. Cannot switch him to oral because of the fact that remains n.p.o., patient remains on TPN. WBC count is 10.7 hemoglobin 7.5 electrolytes are normal renal profile is normal, creatinine normalized to 0.96 Patient was evaluated today on 11/16/2023, remains in the ICU, on 5 L nasal cannula remains on amiodarone at 0.5 mg/min remains on LR at 100 cc/h, however his chest x-ray is showing some component of interstitial edema or could be findings related to his recent episode of aspiration/aspiration pneumonia, nonetheless the patient seems to be a bit symptomatic, he has intermittent cough and wheezing, I am recommending Lasix 40 mg IV push, cut down his IV fluid to 50 cc/h, continue Zosyn, patient will be placed on DuoNeb updrafts and on Solu- Medrol. Patient is scheduled to have jejunostomy-tube placement today. WBC count is 13 hemoglobin 7.7 basic metabolic profile is normal and renal profile is normal Patient was evaluated today on 11/17/2023, patient underwent uneventful placement of a jejunostomy tube yesterday, in the ICU on 5 L, patient is relatively stable, not in any distress, patient continues to have nasogastric tube in place although he did have a J-tube placed yesterday. Patient was seen by oncology for his non-Hodgkin's lymphoma involving the gastric outlet. Today's x-ray showed evidence of pneumonia/bilateral interstitial infiltrate/edema patient was given a dose of Lasix, I reminded the patient had an aspiration episode which was significant. And he required intubation mechanical ventilation for a few days.WBC count today is 9.1 hemoglobin 7.9 electrolytes are normal renal profile is normal hence I plan to transfer the patient out of the ICU to a cardiac floor. And hopefully discharge planning in the next 2 days for The patient was seen today November 18, 2023 in follow-up in the intensive care unit. He is currently sitting up in bed. Awake and alert in no acute distress. He is maintaining O2 saturations in the 90s on 5 L/min per nasal cannula. Glucose 177. Remains on DuoNeb inhalations and Solu-Medrol. Antibiotics in the form of Zosyn. He has a J-tube in place. He was initiated on vital AF 1.2 at 10 mL an hour with a goal of 82 mL/h The patient is seen today November 19, 2023 in follow-up in the intensive care unit. He is a regular medical floor overflow patient. He is currently sitting up in a chair. Awake and alert in no acute distress. He is maintaining O2 saturations in the 90s on 5 L/min per nasal cannula. No IV fluids. He denies any worsening shortness of breath, cough or congestion. He is having some issues with diarrhea. He remains on Zosyn. He is receiving vital AF at 55 mL/h with a goal of 82 mL/h. Glucose 161. Solu-Medrol, DuoNeb inhalations. The patient is seen today November 20, 2023 in follow-up on the regular medical floor. He is currently up in a chair at the bedside. Awake and alert in no acute distress. Denies any worsening shortness of breath, cough or congestion. He is maintaining O2 saturation in the 90s on 3 L/min per nasal cannula. He continues on Zosyn. Continues on bronchodilators and steroids. White count 12.3. Hemoglobin 9.0. Platelets 258. Glucose 168. He is not tolerating his tube feeds as he has developed diarrhea. C. difficile screen was negative. Abdominal series revealed cardiomegaly with left basilar acute infiltrate and/or atelectasis. Overall nonspecific bowel gas pattern. A small bowel obstruction needs to be considered. Progress note dated November 21, 2023. The patient is seen in room 517. The patient is currently on 3 L of oxygen. He continues on Zosyn. His biggest complaint has been abdominal discomfort and diarrhea. He did have a CT scan of the abdomen and pelvis. Current laboratory data includes a white count of 14.4, hemoglobin 8.8, hematocrit 28.7, and platelet count 229,000. Sodium 139, potassium 4.1, chlorides 103, CO2 30, BUN 42, creatinine 0.94. Glucose is 158. Calcium is 8.5. Progress note dated November 22, 2023. 73-year-old male seen in room 517. He currently is on 2 L of oxygen. Room air saturation was 89%. Chest CT shows bilateral patchy infiltrates. He continues on Zosyn. He is still not taking anything by mouth. No new laboratory data today other than a glucose of 138. Gram stain was negative. Progress note dated November 23, 2023. 73-year-old male seen in room 517. He is resting comfortably without complaints. He continues on saline at 10 cc an hour, tube feedings with Pivot at 20 cc an hour, Zosyn, and 2 L by nasal cannula. He has had an uneventful night. Laboratory data today includes a white count 14.5, hemoglobin 9.7, hematocrit 31.4, and a platelet count of 242,000. Sodium 138, potassium 3.7, chlorides 106, CO2 26, BUN 39, creatinine 0.95. Glucose is 181. Calcium is 8.5. Sputum sampling was negative. Progress note dated November 24, 2023. 73-year-old male who is seen in room 517. The patient has been having significant abdominal discomfort, and went for a evaluation, ordered by surgery today, to determine whether or not the feeding tube, was in proper position, and whether or not there is anything acutely going on in the abdomen. He had been having diarrhea. He is on 3 L of oxygen. He has been here for 12 days. This is a patient, that had a prior EGD, aspirated, because of gastric outlet obstruction, and was diagnosis of non-Hodgkin's lymphoma. He is currently on Zosyn, DuoNebs, and Solu-Medrol. He has been NPO. Chest x-ray showed a left lower lobe infiltrate. Abdominal x-ray showed multiple air-fluid levels. CT of the abdomen showed multiple dilated small bowel loops, consistent with obstruction, pneumoperitoneum, ascites, and cholelithiasis. White count was 14.1, hemoglobin 8.9, hematocrit 29.5, and platelet count was 255,000. Glucose was 143. 11/25/2023, the patient is being seen in the intensive care unit. The patient is critically ill, n.p.o., he has an NG tube in place. Following the NG tube insertion, there was a total of 2.0 L of output and the patient's J-tube was also draining approximately 200 cc over the past 8 hours. Continues to have abdominal pain which is rather diffuse and the patient has direct abdominal tenderness. CAT scan of the abdomen was noted and was consistent with small bow el obstruction. The patient has a stomach that was inflated and in the same time there were multiple loops of small bowel distended with fluid. This extended to the pelvis. J-tube with contrast nondilated small bowel loops within the mid abdomen. Additional loops of small bowel were seen that was dilated. There was some contrast in the right lower quadrant and contrast was also in the cecum. No transition point was identified. The dilated loops of the bowel appeared to be in the proximal jejunum and distal to the duodenum. General surgery is on the case the patient will be taken to the operating room for another exploratory laparotomy. Noted the CAT scan of the abdomen also showed pneumoperitoneum and small amount of ascites and cholelithiasis. Hemodynamically, the patient is currently on normal saline at rate of 75 cc an hour. He is hypotensive and is going to be started on pressors. He is on 4 L of oxygen by nasal cannula. He also has sustained acute kidney injury. Blood work from today shows a rise in the creatinine which is currently up to 2.5 with a BUN of 57. Serum bicarb is at 14 with an anion gap of 11. The patient WBC count is at 8.2 with a hemoglobin of 12.3 and a platelet count of 188. Chest x- ray from this morning is showing a right-sided port and a stable left lung airspace disease and an NG tube being in place. The patient remains on IV Zosyn. The patient is receiving Dilaudid for pain control. The patient remains on IV Solu-Medrol 60 mg every 6 hours. It was noted that the patient's surgical wound over the port has dehisced and there is some serous drainage and erythema at the incision site. Awake and alert and communicating. Family at the bedside. No apparent signs of respiratory distress at this point. 11/26/2023, the patient is being seen in follow-up. Events from yesterday was noted and the patient was taken to the operating room for exploratory laparotomy. The patient was found to have large amount of free fluid noted in the abdomen and there was significant contamination. There was perforation of the small bowel with the balloon of the previously inserted jejunostomy tube penetrating through the perforation. As such, the tube was removed, abdominal washout was done. Small bowel resection was done and the patient had a nodular jejunostomy tube inserted. Postop, the patient was extubated he was unable to tolerate extubation and the patient was kept intubated on mechanical ventilator and he was brought back to the intensive care unit. He is currently postop day #1 following his small bowel resection. Abdominal surgical wound site is dry clean and intact. This morning, the patient remains sedated on propofol which is currently running at 35 mcg/kg/min. He is on assist-control mode of mechanical ventilation at rate of 28, tidal volume of 550, FiO2 of 60% with a PEEP of 5. Blood gas from today shows a pH of 7.35 with a pCO2 44 and pO2 of 88. Chest x-ray shows adequate positioning of the orotracheal tube. The patient has a Mediport on the right and a subclavian triple-lumen catheter on the left and the patient has persistent bilateral pleural effusion and infiltrates in lung base bilaterally. Hemodynamically, the patient remains in shock. He has been on high-dose norepinephrine which is currently running at 0.28 mcg/kg/min and the patient is also on vasopressin at 0.03 units an hour. He is IV fluids are in the form of bicarb infusion running at rate of 150 cc an hour. He is in sinus tachycardia. NG tube output has been 250 cc over the past 8 hours and the output from the J-tube is minimal at this point in time. Urine output is quite diminished as the patient has also sustained acute kidney injury. Overall fluid balance is +4.9 L over the past 24 hours. The patient's white cell count of 5.7 with a hemoglobin 9.9 and platelet count of 172. BUN is 72 with a creatinine of 2.8 and sodium levels at 143. The calcium level is at 6.5. LFTs are normal. Triglyceride level is at 315. On 11/27/2023, the patient remains critically ill. Remains intubated and on mechanical ventilator, still awaiting shock which is essentially septic shock. Remains on propofol which is running at 50 mcg/kg/min. Remains on the mechanical ventilator, assist-control mode with rate of 28, tidal volume of 550 with an FiO2 of 60% with a PEEP of 5. Blood gas shows a pH of 7.29 with a pCO2 of 47 and pO2 of 78. The patient had a follow-up chest x-ray that showed lower lobe consolidation slightly worse on the right and the orotracheal tube is in a good location. Urine output is diminished in the order of 5 to 10 cc an hour and the patient is also developing progressive worsening renal function. Remains on normal citrate of 150 cc an hour and the patient was started on TPN which is running at 30 cc an hour. He has a triple-lumen catheter in his left subclavian. Overall fluid balance over the past 24 hours is +3.9 L. Output from the NG tube and the J-tube is minimal. Hemodynamically, he is hypotensive and norepinephrine running at 0.45 mcg/kg/min. Vasopressin is a physiologic dose. He received amiodarone and he remains on maintenance amiodarone of 0.5 mg/min and the patient continues to be in atrial fibrillation and is having episodes of tachycardia. The white cell count is at 13, hemoglobin 9.4 platelet count is pending. The patient's BUN is 83 with a creatinine of 3.7. Sodium is at 140 with a potassium level of 5.5 dropped down to 4.4 as the sample was hemolyzed. LFTs are normal. Abdominal wound is dry clean and intact. RAYA drainage is essentially serous at this point in time. 11/28/2023, the patient is being seen for a follow-up. The patient remains intu bated on mechanical ventilator. This morning, the patient tolerated propofol drip running at 50 mcg/kg/min. The patient is on mechanical ventilator assist- control mode with rate of 28, tidal volume of 550, FiO2 55% with a PEEP of 5. Chest x-ray shows stable findings with lower lobe consolidations bilaterally. Blood gas shows a pH of 7.32 with a pCO2 38 and pO2 90. Neuropathy has improved and the patient is producing approximately 30 cc an hour and the overall input output balance is +3.3 L over the past 24 hours. The patient is still on pressors although his pressor requirements have improved since yesterday. He is on norepinephrine which is running at 0.05 mcg/kg/min and vasopressin physiologic dose. Also, the patient on amiodarone drip regarding his chronic ongoing atrial fibrillation. Amiodarone drip is running at 0.5 mg/min. Nevertheless, the rate is under much better control. Noted the patient was given a dose of digoxin 0.5 mg IV yesterday which helped with rate control. Remains on normal citrate of 150 cc an hour. Remains on TPN at 40 cc an hour. Output from the J-tube is fecal. Output from the NG tube is more gastric. Surgical wound site is dry clean and intact. Sputum Gram stain and culture showing Pseudomonas and Citrobacter. Note that the Citrobacter was intermediate resistance to Zosyn. This will be discussed further with infectious disease. Blood cultures are still pending for now. They have negative based on the most recent check. Blood work from today shows WBC count 11.2, hemoglobin 7.9 and platelet count of 46. Sodium is at 140, potassium is at 4.3, chloride is 114 with a bicarb of 18. He has 93 and the creatinine is 4.8. Serum random vancomycin level is at 25.7. On 11/29/2023, the patient is being seen for a follow-up. Remains intubated on the mechanical ventilator. The patient sedated on propofol which is running at 35 mcg/kg/min. Synchronous with mechanical ventilator. On today's evaluation, he is on assist-control mode with rate of 28, tidal volume of 550, FiO2 55% with a PEEP of 5. Chest x-ray shows lower lobe consolidation bilaterally worse on the right and the orotracheal tube is in good location. The blood gas showed a pH of 7.34 with a pCO2 of 35 and a pO2 of 84. No significant orotracheal secretions. Hemodynamically improved compared to yesterday. In fact, the patient is on minimal norepinephrine that was discontinued earlier this morning. The patient has converted to normal sinus rhythm. Remains on amiodarone at 0.5 mg/min. Overall fluid balance over the past 24 hours is 2.4 L positive. Urine output has been adequate and the patient is currently on IV Lasix. Nevertheless, the patient has developed progressive worsening renal function. Creatinine is up to 5.3 on today's evaluation with a potassium level of 4.4. Serum bicarb is at 18 with an anion gap of 9. WBC count is at 8.1 with a hemoglobin of 7 and a platelet count of 32 which has dropped compared to earlier evaluation. The rest of the coagulation profile was normal from 11/28/2023. Fibrinogen level is slightly elevated. Sputum samples have shown a combination of Citrobacter and Pseudomonas aeruginosa. Based on cultures and sensitivities, the patient will be taken off his IV Zosyn and he will be switched to IV merop enem. Output from the J-tube is fecal. Output from the NG tube is gastric and surgical wound site is dry clean and intact. He is afebrile for now. Hemodynamically, the patient is doing better. He remains on TPN for nutritional support. IV fluids are also running at a rate of 75 cc an hour. Remains on vancomycin. 11/30/2023, the patient is being seen for a follow-up. The patient remains on propofol at 50 mcg/kg/min. Ventilator settings are essentially unchanged. The patient remains on assist-control mode with rate of 18, tidal volume of 400, FiO2 50% with a PEEP of 5. The blood gas showed a pH of 7.37 with a pCO2 of 43 and pO2 of 127. Chest x-ray shows no significant interval change. Patient remains on normal saline at rate of 75 cc an hour and TPN at rate of 35 cc an hour. Fluid balance is positive. Hemodialysis was performed yesterday and the second session of hemodialysis to be done today. The patient's urine output is in the order of 20 to 30 cc an hour. The patient has an NG output of 350 cc for yesterday and the drainage from the J-tube is in the order of 400 cc over the past 24 hours. The blood work shows a WBC count of 10.8, hemoglobin 8.1 and platelet count of 41. Platelet counts are essentially stable and slightly improved compared to yesterday. The sodium level is at 133, potassium is at 4.3, BUN is 93 with a creatinine of 3.6. LFTs are within normal limits. Albumin is down to 2.1. The patient is currently on no pressors. Norepinephrine and vasopressin are both discontinued and the patient remains in normal sinus rhythm. No other significant events overnight. Family has been updated on his condition. Antibiotic coverage is currently with IV meropenem. Vancomycin and Zosyn have been both discontinued. On 12/01/2023, the patient remains sedated on propofol which is running at 25 mcg/kg/min., Comfortable and synchronous mechanical ventilator. The patient remains on assist-control mode rate of 28, tidal volume of 550, FiO2 40% and PEEP of 5. Blood gas shows a pH of 7.49 with a pCO2 of 34 and pO2 of 121. Patient underwent hemodialysis yesterday. No plans for hemodialysis today the patient is producing urine output. Remains on TPN for nutrition support rate of 75 cc an hour. IV fluids are currently at KVO. The chest x-ray from today shows bilateral lower lobe consolidation worse on the right. No significant change in the volume status. The patient continues to have third spacing and edema in all 4 extremities. Nevertheless, urine output is adequate at this point in time and the patient remains on Lasix 80 mg IV every 12 hours. Remains NPO. NG tube and J-tube are both drainage. Output is noted. Remains on IV meropenem. Afebrile. Currently on no pressors. Blood work shows a WBC count of 11.4, hemoglobin of 8.1 and platelet count of 46. Sodium is at 131, potassium level is at 3.7, chloride 101 and bicarb is at 24. BUN is 84 with a creatinine of 3.6. Glucose of 228. LFTs are within normal limits. Patient was reevaluated today on 12/02/23, patient remains in the ICU, patient is familiar to my service, I saw this patient 3 weeks ago. Since then he had a very complicated hospital course, related to his jejunostomy tube dislodging and leaking and picture of abdominal sepsis and worsening pneumonia/ARDS. Patient had to be placed back on mechanical ventilation, and he is now intubated and mechanically ventilated. He is on assist-control rate of 20 tidal volume 550 FiO2 40% PEEP of 5 ABG showed a pO2 of 111 pCO2 38 pH of 7.43 and I cut down his FiO2 to 35% and increase his flow rate from 60-70. Patient remains on TPN at 75 cc/h he is on propofol at 25 mcg/kg/min patient is on Cleviprex which I added today for elevated blood pressure. Receiving Lasix 80 mg every 12 hours is also on Merrem as per infectious disease. Patient is on hemodialysis and being followed by nephrology. Patient required multiple abdominal surgeries since his initial admission. Chest x-ray continues to show worsening pneumonia involving both lungs, right more so than left, I suspect there may be a component of ARDS. His initial presentation was the presentation of aspiration pneumonia to begin with and that was 3 weeks agoWBC count is 10.3 hemoglobin 8.6 sodium 131 potassium 4 chloride 100 bicarb 23 BUN is 111 creatinine 4.02 blood sugar is 248. Albumin is 1.9 Patient was evaluated today on , patient remains in the ICU, intubated and mechanically ventilated. Patient is on assist-control rate of 20 tidal volume 550 FiO2 35% and PEEP of 5 ABG showed a pO2 of 99 pCO2 39 pH of 7.44 patient is undergoing hemodialysis today, and the plan is to remove 2 L. He is remains on propofol at 35 mcg/kg/min, remains on TPN at 75 cc/h. Remains on Merrem. Patient is not requiring any pressors today. Yesterday patient did not tolerate to be off sedation long enough, and today we tried the same sedation interruption, and the patient did not do well post interruption of sedation, became extremely agitated restless, tachycardic, and could not fully assess mental status off sedation. Hence the patient was placed back on AC mode of mechanical ventilation, and the plan is to continue the same supportive care measures. Family updated on his condition and most likely the patient will end up requiring tracheostomy in the next few days.WBC count is 8.5 hemoglobin 8.2 basic metabolic profile is relatively unremarkable BUN is 89 creatinine 3.45 chest x-ray today showed stable chest, suspect some right-sided pleural effusion which would likely improve with hemodialysis/ultrafiltration. X-ray of abdomen showed nonspecific nonobstructive bowel gas pattern Patient was seen today on 12/04/2023, remains in the ICU, intubated mechanically ventilated, on assist-control rate of 20 tidal volume 550 FiO2 35% PEEP of 5 ABG showed a pO2 of 112 pCO2 38 pH of 7.45, hence no changes were made in ventilator settings. Patient is on propofol at 35 mcg/kg/min he is also on IV fluid at KVO TPN at 75 cc/h. Remains on hemodialysis remains on Lasix 80 mg IV push twice daily, remains on Merrem. This x-ray continues to show the same findings/airspace disease in both lungs, not much of a change in the last 2 days, however his oxygenation seems to be improved. WBC count is 7.1 hemoglobin 7.7. Electrolytes are normal, BUN is elevated 77 creatinine 3.32, patient is on hemodialysis. His condition was discussed today with the at bedside, and I do not believe the patient is ready to be weaned or extubated, however he seems to get extremely agitated when he goes off propofol, today I plan to transition propofol to Precedex, give him a trial on Precedex and determine whether the patient becomes more appropriate and at least ready for any weaning trials. Clinically I doubt if this will happen but we will go ahead and try Patient was evaluated today on 12/05/2023, remains in the ICU, intubated mechanically ventilated, not much of a change noted in the last 24 hours. Remains on assist-control of 20 tidal volume 550 FiO2 35% PEEP of 5 ABG showed a pO2 of 90 pCO2 37 pH of 7.48 hence chose not to change any of his ventilator settings. Yesterday the patient failed again trial of weaning, and he was never anywhere near ready to be weaned in spite of placing him on Precedex and off propofol, at 1 point the patient became extremely agitated restless and he was biting on the endotracheal tube could not fully awake the patient and determine improvement in his mental status. Hence patient was placed back on propofol yesterday and he remains on propofol today. He is on propofol at 25 mcg/kg/min he is on TPN at 75 cc/h surgery is considering starting his J-tube feedings today. Remains on hemodialysis remains on Merrem remains on Lasix 80 mg IV push twice daily overall not much of a change his chest x-ray is basically about the same showing bibasilar airspace disease. Today I had a discussion with the regarding the option of tracheostomy extremely reluctant to have it done yet. Said that the patient had multiple complications with previous surgeries and she is afraid that he is going to have another complication with the surgeryWBC count is 10.2 hemoglobin is 8, basic metabolic profile is normal sodium 130 BUN 70 creatinine 2.89 Patient was seen today on 12/06/23, remains in the ICU, intubated mechanically ventilated, his ventilator settings are assist-control rate 20 tidal volume 550 FiO2 35% and PEEP of 5 ABG showed a pO2 of 103 pCO2 36 pH of 7.47 patient opens eyes but does not follow any other instructions. He is now off propofol for the last 24 hours, he is maintained on Precedex at 0.4, TPN at 75 cc/h vital AF at 5 mL/h. Patient remains on Merrem, patient did not receive dialysis today because issues related to occluded dialysis catheter. Nonetheless the patient is making urine, and continues to improve with diuretics. Chest x-ray continues to show bibasilar airspace disease, not much of a twisting frame changer the last 1 week.WBC count today is 11.8 hemoglobin is 7.9.Basic metabolic profile is normal BUN is 92 creatinine 3.74. Blood sugar is 226. Family is at bedside, considering his overall mental status at this point, not quite ready to start checking weaning parameters, and is not ready for weaning. Nonetheless I plan to keep him on Precedex, and hopefully avoid narcotics and other sedatives. His mentation starts clearing a bit more, then will start trials of weaning parameters and/or weaning trials Patient was seen today on 12/07/2023, remains in the ICU, intubated and mechanically ventilated, on assist-control rate of 20 tidal volume 550 FiO2 35% PEEP of 5 ABG showed a pO2 of 83 pCO2 33 pH of 7.50 hence the tidal volume was cut down to 500. Patient remains off propofol remains off narcotics is only on Precedex for sedation at 0.6 mg/kg/h. He is on norepinephrine at 0.02 TPN at 75 cc/h IV fluid at KVO vital AF at 10 mL/h is also on Merrem. Neurologically I am concerned about this patient neurological status, does not seem to be waking up much, he opens his eyes but does not follow any instructions and spite of sedation hold for quite some time. Hence I am recommending a CT of the brain and multiple recommending a neurological consultation on this patient. WBC count is 18 7 hemoglobin is 8.4, basic metabolic profile is normal BUN is 75 creatinine 2.95, patient is back on dialysis, he had a new hemodialysis catheter placed yesterday by vascular surgery, and he will be restarted back on hemodialysis. CT of the brain done shortly after evaluating the patient showed no acute intracranial process chest x-ray basically about the same, continues to show small left and moderate right basilar infiltrate. Has not changed much over the last 1 week, patient remains on antibiotics. Patient was seen today on 12/08/2023, remains in the ICU, intubated and mechanically ventilated, remains on assist-control rate of 20 tidal volume 500 FiO2 35% PEEP of 5 ABG showed a pO2 of 88 pCO2 37 pH of 7.47 hence no changes were made in ventilator settings. Chest x-ray is showing slight increase in his right-sided pleural effusion, however his oxygenation seems to be about the same, and the patient is responding to Lasix given at 80 mg IV push every 12 hours, he is also doing well with hemodialysis he had 2 L removed yesterday and 2 L the day before. Hence will not recommend thoracentesis at this point. But the pleural effusion will need to be closely monitored. Patient remains off propofol he is on Precedex at 0.6 mcg/kg/h. For the last 2 days, and his mentation is not much different from baseline. Continues to open his eyes and does not follow any other instructions has the patient is clearly not ready for weaning trials or extubation. Brought up the issue of tracheostomy again with the , she is still reluctant to proceed with tracheostomy on him at this point. Patient remains on Merrem, remains on TPN but his enteral feeding will be advanced today to full goal, and if that happens then we will can discontinue TPN. Patient is receiving vital AF 1.2@10 mL/h at this point.WBC count is 19.3 hemoglobin 7.6. Basic metabolic profile is normal BUN is 72 creatinine 2.99 blood sugar ranging between 250 up to 334. 12/09/23 - patient seen at bedside today, remaining in the ICU, intubated and mechanically ventilated, remaining on assist-control rate of 20, tidal volume 500, FiO2 30%, PEEP of 5 and oxygen saturation of 100%. Patient is on day 27 of his hospital stay (admitted 11/11), day 15 of this current ICU stay (readmit to the ICU 11/24) and day 15 of this current period of time on the ventilator (placed 11/24). ABG showed pO2 100, pCO2 36, pH 7.47. Chest x-ray was deemed to be stable, however possibly with slight improvement noted on the left with a right-sided pleural effusion remains evident however the patient's oxygenation remains to be about the same. Continue to receive 80 mg IV Lasix every 12 hours and is receiving daily hemodialysis, in which he has been having 2 L removed the past couple of days, hemodialysis yet to occur today. His creatinine is 3.57 (compared to 2.99 yesterday) and BUN 98 (compared to 72 yesterday). Due to this response to diuresis and hemodialysis, no thoracentesis recommended at this point however pleural effusion will need to continue to be monitored. Patient shon off propofol, he is on Precedex at 0.4 mcg/kg/h. Due to his mentation remaining near baseline, neurology had been consulted who ordered an EEG which showed diffuse background slowing of his severe degree which is suggestive for generalized cerebral dysfunction and can be seen with toxic metabolic encephalopathy, as well as the presence of sporadic intermittent, some higher amplitude, sharply contoured waves of generalized distribution. Because of this per neurology's recommendation, patient started on Keppra 500 mg twice daily. The patient does seem to be having some improved mentation, with opening his eyes and responding to commands some of this morning. Spontaneous breathing trial to be attempted today, to see if the patient will be able to come off of mechanical ventilation. If that is unable to occur, discussed with the patient as well as his and one of his daughters that a tracheostomy would be the most appropriate next course of action due to the potential dangers of sustained endotracheal intubation for prolonged period of time. The , while reluctant, seem to acknowledge that this is the appropriate course of action. He remains receiving meropenem 1 g nightly. He remains on TPN 75 mL/h, which she has been on since 11/21 (18), but his enteral feeding has been vital 1.2 AF at 10 mL/h with a goal rate of 80 mL/h. Patient drained 60 mg of serosanguineous fluid from his RAYA. His WBCs increased to 21.5 (compared to 19.3 yesterday), hemoglobin dropped to 7.2 (compared to 7.6 yesterday), hematocrit dropped to 22.0 (compared to 22.9 yesterday) and patient procalcitonin remains elevated at 3.07. 12/10/23 - Patient seen at bedside today, remaining in the ICU, intubated and mechanically ventilated, remaining on assist-control rate of 20, tidal volume 500, FiO2 30%, PEEP of 5 and oxygen saturation of 100%. Patient is on day 28 of his hospital stay (admitted 11/11), day 16 of this current ICU stay (readmit to the ICU 11/24) and day 16 of this current period of time on the ventilator (placed 11/24). ABG showed pO2 93, pCO2 37, pH 7.47, showing evidence of a mild metabolic alkalosis. Chest x-ray today showed stable disease compared to yesterday. He received levo overnight due to atypical blood pressure, patient's TPN was up to 120 due to the change in formula. Patient is scheduled to undergo tracheotomy today (12/09) at 16:30. Per the nurse and the overnight staff patient continues to open his eyes and shows some responsiveness to commands. Per nephrology's recommendation dialysis to be held today due to the patient going for the tracheotomy later, as well as the dip in blood pressure seen after yesterday's dialysis session which required Levophed. Patient's Hgb this morning 6.6, will be given 1 unit today, which will be the second unit he has received during his hospital course. Patient's airway resistance noted to be 3.3 cm/L/s, static lung compliance shown to be 45 mL/cm H2O and dynamic compliance 33 mL/cm H2O. 12/11/23 - Patient seen at the bedside, remaining in the ICU, with a tracheotomy tube and mechanically ventilated while receiving dialysis. Patient remains on assist-control rate of 20, FiO2 30%, PEEP of 5 and has an oxygen saturation of 97%. Patient is on day 29 of the hospital stay (admitted 11/11), day 17 of his current ICU stay (readmitted to the ICU 11/24) and day 17 of his current period of time on the ventilator (placed 11/24). ABG today showed pO2 115, pCO2 38, pH 7.44 continuing to show evidence of a mild metabolic alkalosis. Chest x-ray today showed stable disease. Patient had tracheotomy placed yesterday afternoon (12/09) without any complications. Patient has had 3 consecutive days of attempting spontaneous breathing trials in an effort to wean the patient off the ventilator, all of which failed to this point. Beginning today the patient's antibiotics (meropenem) will be discontinued and we will begin weaning his propofol down from 25 mcg/kg/min. As the patient is weaned off of the propofol, 0.5 Dilaudid and 1 mg IV Ativan to be used every 6 hours as needed. Patient is continuing to receive normal saline 20 cc/h, and has a total of 200 mL of serosanguineous fluid from his RAYA drain. TPN to continue at a rate of 120 mL/h additionally tube feeds, which had been held due to the patient receiving straight catheter yesterday, will be restarted today with an ultimate goal being to receive enteral nutrition at a rate of 80 mL/h. TPN to continue until able to increase the enteral nutrition to at least 50 mL/h, as per the dietitian's recommendation. Will be exploring the possibility of the patient being moved to select specialty. REVIEW OF SYSTEMS: Could not be assessed , with tracheotomy patient on mechanical ventilation and sedated. PHYSICAL EXAMINATION: General: Revealed 73-year-old male with tracheotomy, mechanically ventilated, sedated, on propofol 25 mcg/kg/min with the goals of weaning. Supine position 96% O2 saturation, 30% FiO2 and PEEP of 5 Skin: Skin is warm and dry and no rashes or lesions are noted. HEENT: Pupils are round and equally reacting to light. EOMI. No scleral icterus. No conjunctival pallor. Normocephalic, atraumatic. No pharyngeal erythema. No thyromegaly. Cardiovascular: There is a regular rate and rhythm. No murmur, rub or gallop is appreciated. Respiratory: Diminished breath sounds and crackles at the bases no rhonchi no wheezes Gastrointestinal: J-tube is noted RAYA drain is noted NG tube is in place mild ab dominal distention, no rebound, no guarding, no bowel sounds, no significant leak noted from the tubes in the abdomen. Musculoskeletal: No deformities and no limitation range of motion Neurological: Patient does not follow any instructions opens eyes and does not follow any instructions; seems to be following some commands this morning, will continue to monitor Extremities: Trace of bipedal edema Assessment and plan # Acute hypoxic respiratory failure requiring intubation mechanical ventilation secondary to aspiration Continue ventilatory support Continue DuoNeb 3 mL elation 4 times daily, Solu-Medrol 40 mg IV daily Will continue to attempt spontaneous breathing trials as per minutes with the patient, the goal of eventual extubated the patient Tracheotomy scheduled for 12/09; tracheotomy completed without complication # Acute peritonitis secondary to status post J-tube placement 11/16/2023 # Septic shock secondary to status post J-tube placement 11/16/2023 # Paroxysmal atrial fibrillation Normal on telemetry, patient noted to be in A-fib with RVR Patient was started on amiodarone drip Amiodarone discontinued, patient was on Lopressor 12.5 twice daily however also discontinued # CRISTAL secondary to sepsis and septic shock Patient receiving hemodialysis since 11/28 Noted hyperkalemia and dialysis catheter center dialysis completed on 12/05 New dialysis catheter placed 12/06 dialysis was resumed Removed 2 L each of the past couple of days, pending today Patient's kidney function continues to decline, creatinine 3.57 today (compared to 2.99 yesterday) and BUN 98 (compared to 72 yesterday) Continue dialysis, with next treatment being today (12/09); no dialysis today (09/08) due to patient undergoing tracheotomy later today as well as a decrease in blood pressure yesterday during dialysis which required Levophed Dialysis continuing today (12/10) # Acute aspiration during upper endoscopy most likely secondary to gastric outlet obstruction secondary to non-Hodgkin's lymphoma based on the pathology from stomach biopsies #Cute aspiration at night as secondary to acute aspiration during upper endoscopy most likely secondary to gastric outlet obstruction secondary to non- Hodgkin's lymphoma based on the pathology from stomach biopsies Patient on meropenem 1 g daily, day 11 after starting meropenem Patient had been on IV Zosyn and vancomycin have been discontinued Has received 14 days total of antibiotics, combined Zosyn, vancomycin, meropen em # Weight loss secondary to non-Hodgkin's lymphoma Patient had noted 22 pound weight loss for the past 4 months Biopsy-proven high-grade non-Hodgkin's diffuse large B-cell lymphoma Patient had port placement in regards to future treatment, deferring to medical oncology management, who states the left the patient follow-up in the clinic to determine course of treatment Per oncology team, upon review of the pathology there is no lymphoma present instead he was deemed to be ischemic colitis with necrosis; possibly attributing the weight loss to gastric outlet obstruction as opposed to lymphoma # 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 Patient had port placement in regards to future treatment, deferring to medical oncology management, who states the left the patient follow-up in the clinic to determine course of treatment Per oncology team, upon review of the pathology there is no lymphoma presents that he was deemed to have ischemic colitis with necrosis # Anemia Patient's Hgb this morning 6.6; patient receiving 1 unit today Continue to monitor patient's Hgb daily If Hgb drops below 7, transfuse GI prophylaxis: 40 mg twice daily Nutrition: TPN 120 mL/h, which she has been on since 11/21, but restarting enteral feeding has been vital 1.2 AF with a goal rate of 80 mL/h Continue to monitor vital signs, monitor CBC, monitor CMP, continue telemetry monitoring, encourage use of incentive spirometer, continue postoperative antibiotic per protocol, postoperative pain management per primary monitor for excessive sedation. Dictation was produced using [employer] dictation software. please excuse any grammatical, word or spelling errors. Objective - Vital Signs Vital signs: Vital Signs Temp 99.1 F 12/11/23 08:00 Pulse 77 12/11/23 10:00 Resp 30 H 12/11/23 10:00 BP 112/65 12/11/23 10:00 Pulse Ox 96 12/11/23 10:00 FiO2 30 12/11/23 09:12 Intake & Output 12/10/23 12/11/23 12/11/23 18:59 06:59 18:59 Intake Total 2465.342 1772.213 185.994 Output Total 1495 1115 75 Balance 970.342 657.213 110.994 Weight 102.2 kg 104.6 kg Intake: IV 1916 1573 143 0.9 KVO 240 220 20 Normal Saline Pressure 36 33 3 Saline TPN 1440 1320 120 Intake, IV Titration 239.342 199.213 42.994 Amount Norepinephrine 8 mg In 16.592 Sodium Chloride 0.9% 250 ml @ 0.03 MCG/KG/MIN 6. 368 mls/hr IV .Q24H [facility] Rx#:[id number] propofoL 1,000 mg In 239.342 182.621 42.994 Empty Bag 1 bag @ 15 MCG/ KG/MIN 9.324 mls/hr IV . [id number] [facility] Rx#:[id number] Blood Product 310 Rc As-1 Unit 310 [id number] Output: Drainage 50 200 Right Abdomen 50 200 Urine 1445 910 75 Estimated Blood Loss 5 Other: Voiding Method Indwelling Catheter Indwelling Catheter ABP, PAP, CO, CI - Last Documented Arterial Blood Pressure 115/62 - Labs CBC & Chem 7: 12/11/23 05:35 12/11/23 05:35 Labs: Abnormal Lab Results - Last 24 Hours (Table) 12/10/23 12/10/23 12/10/23 Range/Units 05:15 14:00 14:07 WBC 26.1 H (3.8-10.6) k/uL RBC 3.11 L (4.30-5.90) m/uL Hgb 8.6 L D (13.0-17.5) gm/dL Hct 27.1 L (39.0-53.0) % RDW 19.4 H (11.5-15.5) % Plt Count (150-450) k/uL Neutrophils # (1.3-7.7) k/uL Lymphocytes # (1.0-4.8) k/uL ABG pO2 (83-108) mmHg ABG HCO3 (21-25) mmol/L ABG Total CO2 (19-24) mmol/L ABG O2 Saturation (94-97) % Hemoglobin (13.0-17.5) gm/dL Sodium (137-145) mmol/L BUN (9-20) mg/dL Creatinine (0.66-1.25) mg/dL Glucose (74-99) mg/dL POC Glucose (mg/dL) 185 H (70-110) mg/dL Calcium (8.4-10.2) mg/dL Crossmatch See Detail 12/10/23 12/10/23 12/11/23 Range/Units 18:14 23:22 00:30 WBC (3.8-10.6) k/uL RBC (4.30-5.90) m/uL Hgb (13.0-17.5) gm/dL Hct (39.0-53.0) % RDW (11.5-15.5) % Plt Count (150-450) k/uL Neutrophils # (1.3-7.7) k/uL Lymphocytes # (1.0-4.8) k/uL ABG pO2 115 H (83-108) mmHg ABG HCO3 26 H (21-25) mmol/L ABG Total CO2 27 H (19-24) mmol/L ABG O2 Saturation 99.1 H (94-97) % Hemoglobin 7.4 L (13.0-17.5) gm/dL Sodium (137-145) mmol/L BUN (9-20) mg/dL Creatinine (0.66-1.25) mg/dL Glucose (74-99) mg/dL POC Glucose (mg/dL) 226 H 297 H (70-110) mg/dL Calcium (8.4-10.2) mg/dL Crossmatch 12/11/23 12/11/23 12/11/23 Range/Units 05:35 05:35 05:37 WBC 21.3 H (3.8-10.6) k/uL RBC 2.64 L (4.30-5.90) m/uL Hgb 7.4 L (13.0-17.5) gm/dL Hct 22.8 L (39.0-53.0) % RDW 19.8 H (11.5-15.5) % Plt Count 129 L (150-450) k/uL Neutrophils # 19.7 H (1.3-7.7) k/uL Lymphocytes # 0.9 L (1.0-4.8) k/uL ABG pO2 (83-108) mmHg ABG HCO3 (21-25) mmol/L ABG Total CO2 (19-24) mmol/L ABG O2 Saturation (94-97) % Hemoglobin (13.0-17.5) gm/dL Sodium 135 L (137-145) mmol/L BUN 111 H* (9-20) mg/dL Creatinine 3.77 H (0.66-1.25) mg/dL Glucose 342 H (74-99) mg/dL POC Glucose (mg/dL) 367 H (70-110) mg/dL Calcium 7.6 L (8.4-10.2) mg/dL Crossmatch
[2023-12-11 11:44] LABS: Glucose,Whole Blood 142 mg/dL (70-110)
[2023-12-11 11:53] LABS: Magnesium 2.1 mg/dL (1.6-2.3); Phosphorus 4.7 mg/dL (2.5-4.5)
[2023-12-11] MEDS: LORazepam 2 MG/ML INJ IV PRN (12:12)
--- NOTE | 2023-12-11 13:39 | P.PN ---
Subjective Progress Note Date: 12/11/23 I am following up with the patient and he is accompanied with his . Patient had a trach yesterday. He continues to be on IV propofol. Currently he is getting hemodialysis. No drastic improvement in his mentation. Objective - Vital Signs Vital signs: Vital Signs Temp 99.1 F 12/11/23 08:00 Pulse 79 12/11/23 11:27 Resp 30 H 12/11/23 11:00 BP 100/71 12/11/23 11:00 Pulse Ox 97 12/11/23 11:00 FiO2 30 12/11/23 11:17 Intake & Output 12/10/23 12/11/23 12/11/23 18:59 06:59 18:59 Intake Total 2465.342 2158.233 3088.060 Output Total 1595 1115 780 Balance 870.342 657.213 756.060 Weight 102.2 kg 104.6 kg Intake: IV 1916 1573 355 0.9 KVO 240 220 100 Normal Saline Pressure 36 33 15 Saline TPN 1440 1320 240 Intake, IV Titration 239.342 605.714 1855.060 Amount Norepinephrine 8 mg In 16.592 Sodium Chloride 0.9% 250 ml @ 0.03 MCG/KG/MIN 6. 368 mls/hr IV .Q24H [facility] Rx#:[id number] Sodium Acetate 68 meq 1081.5 Sodium Chloride 4Meq/ml Vial 68 meq Potassium Chloride 14 meq Calcium Gluconate 2.25 gm Magnesium Sulfate gm 0.5 gm In Amino Acid 5%-D15w 1,000 ml @ 120 mls/hr IV .BY DURATION [facility] Rx#: [id number] propofoL 1,000 mg In 239.342 182.621 99.560 Empty Bag 1 bag @ 15 MCG/ KG/MIN 9.324 mls/hr IV . [id number] [facility] Rx#:[id number] Blood Product 310 Rc As-1 Unit 310 [id number] Output: Drainage 150 200 80 Right Abdomen 150 200 80 Urine 1445 910 700 Estimated Blood Loss 5 Other: Voiding Method Indwelling Catheter Indwelling Catheter Indwelling Catheter ABP, PAP, CO, CI - Last Documented Arterial Blood Pressure 124/61 - Exam General: Lying in bed and does not appear in acute distress. HENT: Has NG tube. Lung: Trach on ventilator. Neuro: Is on IV Propofol 20mcg/kg/min. Very limited. Severely encephalopathic. Not opening his eyes, following commands or attempting to talk. - Labs CBC & Chem 7: 12/11/23 05:35 12/11/23 05:35 Labs: Abnormal Lab Results - Last 24 Hours (Table) 12/10/23 12/10/23 12/10/23 Range/Units 05:15 14:00 14:07 WBC 26.1 H (3.8-10.6) k/uL RBC 3.11 L (4.30-5.90) m/uL Hgb 8.6 L D (13.0-17.5) gm/dL Hct 27.1 L (39.0-53.0) % RDW 19.4 H (11.5-15.5) % Plt Count (150-450) k/uL Neutrophils # (1.3-7.7) k/uL Lymphocytes # (1.0-4.8) k/uL ABG pO2 (83-108) mmHg ABG HCO3 (21-25) mmol/L ABG Total CO2 (19-24) mmol/L ABG O2 Saturation (94-97) % Hemoglobin (13.0-17.5) gm/dL Sodium (137-145) mmol/L BUN (9-20) mg/dL Creatinine (0.66-1.25) mg/dL Glucose (74-99) mg/dL POC Glucose (mg/dL) 185 H (70-110) mg/dL Calcium (8.4-10.2) mg/dL Phosphorus (2.5-4.5) mg/dL Crossmatch See Detail 12/10/23 12/10/23 12/11/23 Range/Units 18:14 23:22 00:30 WBC (3.8-10.6) k/uL RBC (4.30-5.90) m/uL Hgb (13.0-17.5) gm/dL Hct (39.0-53.0) % RDW (11.5-15.5) % Plt Count (150-450) k/uL Neutrophils # (1.3-7.7) k/uL Lymphocytes # (1.0-4.8) k/uL ABG pO2 115 H (83-108) mmHg ABG HCO3 26 H (21-25) mmol/L ABG Total CO2 27 H (19-24) mmol/L ABG O2 Saturation 99.1 H (94-97) % Hemoglobin 7.4 L (13.0-17.5) gm/dL Sodium (137-145) mmol/L BUN (9-20) mg/dL Creatinine (0.66-1.25) mg/dL Glucose (74-99) mg/dL POC Glucose (mg/dL) 226 H 297 H (70-110) mg/dL Calcium (8.4-10.2) mg/dL Phosphorus (2.5-4.5) mg/dL Crossmatch 12/11/23 12/11/23 12/11/23 Range/Units 05:35 05:35 05:35 WBC 21.3 H (3.8-10.6) k/uL RBC 2.64 L (4.30-5.90) m/uL Hgb 7.4 L (13.0-17.5) gm/dL Hct 22.8 L (39.0-53.0) % RDW 19.8 H (11.5-15.5) % Plt Count 129 L (150-450) k/uL Neutrophils # 19.7 H (1.3-7.7) k/uL Lymphocytes # 0.9 L (1.0-4.8) k/uL ABG pO2 (83-108) mmHg ABG HCO3 (21-25) mmol/L ABG Total CO2 (19-24) mmol/L ABG O2 Saturation (94-97) % Hemoglobin (13.0-17.5) gm/dL Sodium 135 L (137-145) mmol/L BUN 111 H* (9-20) mg/dL Creatinine 3.77 H (0.66-1.25) mg/dL Glucose 342 H (74-99) mg/dL POC Glucose (mg/dL) (70-110) mg/dL Calcium 7.6 L (8.4-10.2) mg/dL Phosphorus 4.7 H (2.5-4.5) mg/dL Crossmatch 12/11/23 12/11/23 Range/Units 05:37 11:43 WBC (3.8-10.6) k/uL RBC (4.30-5.90) m/uL Hgb (13.0-17.5) gm/dL Hct (39.0-53.0) % RDW (11.5-15.5) % Plt Count (150-450) k/uL Neutrophils # (1.3-7.7) k/uL Lymphocytes # (1.0-4.8) k/uL ABG pO2 (83-108) mmHg ABG HCO3 (21-25) mmol/L ABG Total CO2 (19-24) mmol/L ABG O2 Saturation (94-97) % Hemoglobin (13.0-17.5) gm/dL Sodium (137-145) mmol/L BUN (9-20) mg/dL Creatinine (0.66-1.25) mg/dL Glucose (74-99) mg/dL POC Glucose (mg/dL) 367 H 142 H (70-110) mg/dL Calcium (8.4-10.2) mg/dL Phosphorus (2.5-4.5) mg/dL Crossmatch Assessment and Plan Assessment: * Altered mental status, likely due to toxic metabolic encephalopathy, severe * Abnormal EEG. * Aspiration pneumonitis from retained gastric contents * Ventilator dependent respiratory failure s/p Trach on 12/10/2023 * Pulmonary edema * History of small bowel perforation at the site of jejunostomy tube tip with balloon * Acute kidney injury * Acute recurrent atrial fibrillation * Septic shock, recovered Sputum culture is positive for Pseudomonas aeruginosa and Citrobacter freundii * Hypertension * Anemia * Thrombocytopenia, improving Plan: * Stat EEG was performed on 12/08/[address] Hernández: It revealed generalized slowing of severe degree. This is suggestive of generalized cerebral dysfunction as can be seen with toxic metabolic encephalopathy or related to diffuse structural brain about a day. Clinical correlation is recommended. Sporadic, periodic generalized sharp-appearing waves were seen. This may suggest underlying cortical irritability. No electrographic seizure was recorded. * Therefore, Dr. Hernández, empirically started on Keppra 500 mg daily. * I ordered a repeat EEG but per electronic technician cannot be performed today since is getting dialysis and will likely performed tomorrow A.M. * CT head performed 12/07/2023 revealed no acute intracranial process. Some atrophy. I personally reviewed CT head agree with the findings. * Patient is generalized weak. Patient has been ICU for extended period of time. At risk for critical illness myopathy. * Recommend I.D. consultation since has worsening of leukocytosis. * For medical management as per critical care and other specialties on board. The plan is discussed with his and his nurse. Time with Patient: Less than 30
--- NOTE | 2023-12-11 13:46 | P.PN ---
Subjective Progress Note Date: 12/11/23 CHIEF COMPLAINT: Abdominal pain HISTORY OF PRESENT ILLNESS: Patient remains in the ICU on mechanical vent ilation. He is status post tracheostomy placement. He is currently receiving tube feeds at 10 mL/h through his J-tube. Afebrile. WBC 21.3 Hgb 7.4 platelets 129 creatinine 3.77 PHYSICAL EXAM: VITAL SIGNS: Reviewed. GENERAL: no acute distress. HEENT: Tracheostomy site clean dry and intact ABDOMEN: Soft. Midline incision with serous drainage. J-tube in place. RAYA drain serosanguineous output. ASSESSMENT: 1. 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 Status post J-tube placement and revision for small bowel obstruction PLAN: -Continue to titrate tube feeds -Continue ICU management -Continue supportive care Physician Gas Adjuster note has been reviewed by physician. Signing provider agrees with the documented findings, assessment, and plan of care. Attestation Patient seen and examined at bedside in ICU. Status post trach placement last night. Tolerating ventilation. Tracheostomy site is clean, dry and intact. Continue J-tube feeding as tolerated. Appreciate dietary recommendations. Zachary Ruiz DO Objective - Vital Signs Vital signs: Vital Signs Temp 99.1 F 12/11/23 08:00 Pulse 79 12/11/23 11:27 Resp 30 H 12/11/23 10:00 BP 112/65 12/11/23 10:00 Pulse Ox 96 12/11/23 10:00 FiO2 30 12/11/23 11:17 Intake & Output 12/10/23 12/11/23 12/11/23 18:59 06:59 18:59 Intake Total 2465.342 4079.518 8590.494 Output Total 1495 1115 75 Balance 970.342 874.907 8328.494 Weight 102.2 kg 104.6 kg Intake: IV 1916 1573 143 0.9 KVO 240 220 20 Normal Saline Pressure 36 33 3 Saline TPN 1440 1320 120 Intake, IV Titration 239.342 823.079 9452.494 Amount Norepinephrine 8 mg In 16.592 Sodium Chloride 0.9% 250 ml @ 0.03 MCG/KG/MIN 6. 368 mls/hr IV .Q24H [facility] Rx#:[id number] Sodium Acetate 68 meq 1081.5 Sodium Chloride 4Meq/ml Vial 68 meq Potassium Chloride 14 meq Calcium Gluconate 2.25 gm Magnesium Sulfate gm 0.5 gm In Amino Acid 5%-D15w 1,000 ml @ 120 mls/hr IV .BY DURATION [facility] Rx#: [id number] propofoL 1,000 mg In 239.342 182.621 42.994 Empty Bag 1 bag @ 15 MCG/ KG/MIN 9.324 mls/hr IV . [id number] [facility] Rx#:[id number] Blood Product 310 Rc As-1 Unit 310 [id number] Output: Drainage 50 200 Right Abdomen 50 200 Urine 1445 910 75 Estimated Blood Loss 5 Other: Voiding Method Indwelling Catheter Indwelling Catheter Indwelling Catheter ABP, PAP, CO, CI - Last Documented Arterial Blood Pressure 115/62 - Labs CBC & Chem 7: 12/11/23 05:35 12/11/23 05:35 Labs: Abnormal Lab Results - Last 24 Hours (Table) 12/10/23 12/10/23 12/10/23 Range/Units 05:15 14:00 14:07 WBC 26.1 H (3.8-10.6) k/uL RBC 3.11 L (4.30-5.90) m/uL Hgb 8.6 L D (13.0-17.5) gm/dL Hct 27.1 L (39.0-53.0) % RDW 19.4 H (11.5-15.5) % Plt Count (150-450) k/uL Neutrophils # (1.3-7.7) k/uL Lymphocytes # (1.0-4.8) k/uL ABG pO2 (83-108) mmHg ABG HCO3 (21-25) mmol/L ABG Total CO2 (19-24) mmol/L ABG O2 Saturation (94-97) % Hemoglobin (13.0-17.5) gm/dL Sodium (137-145) mmol/L BUN (9-20) mg/dL Creatinine (0.66-1.25) mg/dL Glucose (74-99) mg/dL POC Glucose (mg/dL) 185 H (70-110) mg/dL Calcium (8.4-10.2) mg/dL Crossmatch See Detail 12/10/23 12/10/23 12/11/23 Range/Units 18:14 23:22 00:30 WBC (3.8-10.6) k/uL RBC (4.30-5.90) m/uL Hgb (13.0-17.5) gm/dL Hct (39.0-53.0) % RDW (11.5-15.5) % Plt Count (150-450) k/uL Neutrophils # (1.3-7.7) k/uL Lymphocytes # (1.0-4.8) k/uL ABG pO2 115 H (83-108) mmHg ABG HCO3 26 H (21-25) mmol/L ABG Total CO2 27 H (19-24) mmol/L ABG O2 Saturation 99.1 H (94-97) % Hemoglobin 7.4 L (13.0-17.5) gm/dL Sodium (137-145) mmol/L BUN (9-20) mg/dL Creatinine (0.66-1.25) mg/dL Glucose (74-99) mg/dL POC Glucose (mg/dL) 226 H 297 H (70-110) mg/dL Calcium (8.4-10.2) mg/dL Crossmatch 12/11/23 12/11/23 12/11/23 Range/Units 05:35 05:35 05:37 WBC 21.3 H (3.8-10.6) k/uL RBC 2.64 L (4.30-5.90) m/uL Hgb 7.4 L (13.0-17.5) gm/dL Hct 22.8 L (39.0-53.0) % RDW 19.8 H (11.5-15.5) % Plt Count 129 L (150-450) k/uL Neutrophils # 19.7 H (1.3-7.7) k/uL Lymphocytes # 0.9 L (1.0-4.8) k/uL ABG pO2 (83-108) mmHg ABG HCO3 (21-25) mmol/L ABG Total CO2 (19-24) mmol/L ABG O2 Saturation (94-97) % Hemoglobin (13.0-17.5) gm/dL Sodium 135 L (137-145) mmol/L BUN 111 H* (9-20) mg/dL Creatinine 3.77 H (0.66-1.25) mg/dL Glucose 342 H (74-99) mg/dL POC Glucose (mg/dL) 367 H (70-110) mg/dL Calcium 7.6 L (8.4-10.2) mg/dL Crossmatch
--- NOTE | 2023-12-11 13:51 | P.PN ---
Progress Note - Text Progress Note Date: 12/11/23 Chief Complaint: Aspirated This is a 73-year-old patient, follows with Dr. Patricia Deal. Patient was seen this morning in the ICU. Patient's and daughter at the bedside. History obtained predominantly by the . Patient been having trouble with his stomach symptoms for close to 8 months. Patient underwent EGD by Dr. Sahara Cheng yesterday. Patient was found to have ulcerated around the antrum and obstruction to the pylorus. A lot of retained food was found. Patient aspirated. Had to be intubated and brought to the ICU. On a Levophed drip. FiO2 50 and a PEEP of 6. Patient had been losing weight lost about 25 pounds. Previously has a history of mitral valve prolapse. November 13: ICU. Patient remains on Precedex drip and propofol drip. Did not do well attempted extubation yesterday. Patient been off Levophed. NG tube to suction. Spoke to patient's and son at the bedside. Biopsy results awaited. Hemoglobin dropped to 6.9 this morning. Get a unit of blood. November 14: ICU. Up in a chair. Extubated yesterday. NG tube to suction. at the bedside. 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 Oncology was consulted. They have ordered a port. Results discussed with Dr. Sahara Cheng. General surgery was consulted for J-tube placement. Discussed with at the bedside. Patient getting IV fluids, IV Zosyn,. Patient has been on IV amiodarone for A-fib-back in sinus rhythm. Multiple PACs. Did receive unit of blood yesterday. Also IV ferric gluconate. November 15: ICU. Patient earlier today underwent jejunostomy tube placement and a port placement. Patient awake. Answering questions. NG tube to suction present. Updated patient's . Patient remains on IV amiodarone and IV Zosyn. November 16: ICU. Up in the chair. NG tube present but not to suction. Trickle feeding through the jejunostomy tube should be started today. Dietitian has been on board. IV Zosyn to continue. Patient's and his sister at the bedside. Discussed. Also spoke with Dr. Serna. Given patient has no other predisposing cardiac factors for the A-fib except acute illness. His LV function is normal. Left atrium is normal. He has already been loaded with IV amiodarone. Will switch him to oral Lopressor 12.5 twice daily. Hence will DC amiodarone. Patient yesterday had wheezing was put on bronchodilators steroids per pulmonary. November 17: Propped up in bed. NG tube was discontinued. Sinus rhythm. Remains NPO. Getting G-tube feeding at 40 cc an hour. Dietitian following. Get arrangements done for DC home tomorrow including tube feeding. Increase activity discussed with patient and elder daughter at the bedside. Still requiring oxygen. Incentive spirometry. November 18: Patient up in recliner. Earlier today spoke to clinical social work therapist David. Informed patient is rather weak and will be going to the [facility]. Looking at authorization. Denae came to the room and spoke to patient his and his daughter. They are very keen to take the patient home as 3 daughters all nurses and they will take care of him at home. Patient earlier today to abdominal cramping and some loose stools.'s tube feeding was held. Told the nurse to start back at the rate of 40 cc an hour. He was before the getting it at 55 cc an hour. Incentive spirometry was again emphasized. Patient remains on 4 L of oxygen. November 19: I saw the patient this morning. Hence I am in the evening. Morning was sitting with his sons. Has some edema. Lungs had crackles I gave him 40 mg of Lasix. He did make good urine. Tube feeding was held from the previous evening of because of abdominal cramping. Acute abdominal series showed nonspecific bowel gas pattern and SBO to be ruled out. Family and patient was updated. Told him discharge will depend on day by day. Later this afternoon CT scanAnd abdomen pelvis done. Showed small bowel to be 3 point centimeter dilated. Some anasarca. Gastric findings. Gallstones. Later spoke to Dr. Irby from general surgery. They will further review and decide about further plan of action. Will give further dose of IV Lasix because of fluid overload from likely hypoalbuminemia and IV fluids previously received. Patient may take his pills by mouth. Total time spent today about 1 hour with over 40 minutes of discussion. Patient did state his breathing is better after Lasix this morning. November 20: Saw the patient this morning. was present. Patient received 2 more doses of Lasix. Diuresed well. Breathing much better. Lungs are sounding better. Discussed with Dr. Zepeda other surgeon. He is taking 3 cc out of the balloon and the gastrostomy tube. Started trickle feeding at 5 cc an hour. Will see how this does. Later in the day ran into the and the daughter again. Did update them on the same. Dilaudid was discontinued yesterday but morphine was ordered by surgery for patient having pain. Concerns about GI issues with that we will DC the morphine. As family does not want the same. November 21: Patient reclining bed. Tired. Several family members at the bedside. Including his and eldest daughter. Patient started on trickle feed yesterday at 5 cc an hour. This morning he has been on 10 cc an hour. Still having some loose stools. C. difficile was ordered. Patient on 2 L of nasal cannula. Has diuresed well. Will give an additional dose of Lasix today. If C. difficile is negative and the diarrhea is from the tube feedings we may have to use a fecal management system to keep him comfortable. Otherwise patient remains NPO. Dietitian is following the patient. Care was discussed length with patient the and daughter at the bedside. Questions answered. Liquid Tylenol has been added for abdominal pain. Avoid narcotics. Elevated white count likely from Solu-Medrol 11/23/2023--patient was feeling better today. Multiple family member at bedside. No issues overnight. Normal saline at 10 cc an hour, tube feeding at 20 cc an hour, remains on Zosyn, on 3 L oxygen. Afebrile. Heart rate 62, respiratory rate 16, blood pressure 114/67, saturating 91% on 3 L. WBCs 14.5, 9.7 hemoglobin. Platelet 242. BMP is unremarkable. Pulmonary and general surgery following. General surgery recommended to continue tube feeds at 20 cc/h. 11/24/2023--patient reported significant abdominal discomfort, also noted to have leak around G-tube. General surgery is following, evaluated the patient at bedside, adjusted tube feeds. Also reported having diarrhea, on 2 L oxygen, went up to 5 L. Blood pressure was low, 500 mL fluid bolus with close monitoring of respiratory status ordered. Currently on DuoNebs, Solu-Medrol, will continue Zosyn. Chest x-ray showed a left lower lobe infiltrate. Abdominal x-ray showed multiple air-fluid levels. CT abdomen showed multiple dilated small bowel loops, consistent with obstruction, pneumoperitoneum, cholelithiasis and ascites. WBCs 14.1, platelet 255, hemoglobin 8.9. NG tube in place. Family at bedside. patient transferred to SICU for close monitoring. 11/25/23--patient is currently in the ICU, required Levophed overnight due to low blood pressure, low urine output with creatinine trending up. Nephrology following. Business Change Manager also following. Patient remains n.p.o., NG tube in place, following NG tube insertion patient had total of 2 L output, J-tube was draining approximately 200 cc over last 8 hours, continues to have abdominal pain and abdominal tenderness. Patient on IV fluids. Currently on 4 L oxygen. WBCs 8.2, hemoglobin 12.3, platelet 188. Chest x-ray earlier today showed right sided port and a stable left lung airspace disease, NG tube in place. Patient currently on Zosyn, on IV Dilaudid for pain control, on IV Solu-Medrol. General surgery planning for OR today, started on TPN. 11/26/23--patient was seen and examined today. Patient is currently sedated, intubated on mechanical ventilation. Family at bedside. Patient underwent ex lap, abdominal washout, small bowel resection with new feeding jejunostomy tube placement yesterday, small bowel was noted to be perforated with significant contamination of abdominal cavity. Patient is currently on vancomycin and Zosyn. Creatinine went up to 2.85, nephrology following, recommended to continue IV fluids, avoid nephrotoxin Preserved EF on echocardiogram.. Patient currently on Levophed, vasopressin in the ICU for close monitoring. Patient is afebrile, heart rate 122, blood pressure 129/76, currently on mechanical ventilation, sedated. November 26: ICU. Intubated. FiO2 60 and a PEEP of 5. Drips include IV amiodarone. Heart rate was up early did get fired microgram of IV digoxin and 2.5 mg of IV Lopressor. Did drop her blood pressure bit. Urine output was low. Received 80 mg of IV Lasix. Ahmet to 150 cc. Other drips include IV propofol, vasopressin, Levophed. TPN was started yesterday. Antibiotics include IV Zosyn and vancomycin. Patient has a J-tube to drainage to gravity. Spoke to patient's younger daughter and at the bedside. Prognosis guarded. Continue current treatment plan. Chest x-ray shows right lower lobe consolidation. Small pleural effusion. November 27: ICU. Intubated. FiO2 55 and a PEEP of 5. Antibiotics include IV vancomycin. Drips include Levophed at a small dose, IV vasopressin, propofol, amiodarone. Patient converted to sinus rhythm this morning. Getting TPN and normal saline at 75 cc an hour. Urine output about 25 cc an hour. RAYA drain put out about 260 cc last 12 hours that is last shift mechanic. NG tube with bilious output. And also GI J-tube output to gravity. Spoke to patient's and daughter at the bedside. They understand patient still not out of the kee. Platelets have dropped-therefore probably Zosyn stopped. November 28: ICU. Intubated. FiO2 55 and a PEEP of 5. Patient is in sinus rhythm. Seen this morning. Due for dialysis catheter this afternoon. Urine output about 15 to 20 cc an hour. Patient is on IV Lasix 80 mg every 12. Saline is KVO. Drips include IV propofol vasopressin. Patient having significant output through the RAYA drain and the jejunostomy tube to drainage. Creatinine had been getting worse. Patient's at the bedside. Understands patient's remains critically ill. Hemoglobin is down to 7. Given that patient's pain hypotensive, and on vasopressin we will give a unit of blood with dialysis. Getting TPN antibiotic changed to IV meropenem November 29: ICU. Intubated. FiO2 55 and a PEEP of 5. Remains in sinus rhythm. Getting TPN. Dialyzed yesterday and this morning. About 1000 cc removed. Urine output about 50 cc an hour. Patient is on IV propofol. Off vasopressin. Still having significant output through the RAYA drain and jejunostomy tube. Patient received a second unit of blood yesterday. Patient's and daughter at the bedside. I did discuss guarded prognosis. Did asked them to revisit CODE STATUS.. Getting IV meropenem. November 30: ICU. Intubated. Did get a sedation holiday t today. Back on propofol. Getting TPN. Still getting IV Lasix. Fair urine output. Jejunostomy tube in last 8 hours was about 30 cc output. RAYA drain in the 8 hours had about 180 cc output. Telemetry shows sinus rhythm. NG tube has low intermittent suction with negative output. On the vent with FiO2 40 and a PEEP of 5. No hemodialysis today. Discussed with the and eldest daughter at the bedside. IV meropenem-patient's sputum had grown Citrobacter freundii and Pseudomonas aeruginosa. December 01: ICU. Intubated. Jejunostomy tube to gravity. Only 10 cc output in last 24 hours. RAYA drain. About 190 cc last 6 hours. Nasogastric tube to low intermittent suction. Minimal output. Patient is on a small dose of propofol 5 mics. Telemetry shows sinus rhythm. Patient started on small dose of Cleviprex this morning. Blood pressure. Getting TPN. FiO2 35 and PEEP of 5. Discussed with the at the bedside. Hemodialysis today December 02: ICU. Patient remains intubated. FiO2 35 PEEP of 5. Patient is on IV propofol. IV Cleviprex was discontinued yesterday. Also remains on TPN. Telemetry shows sinus rhythm. NG tube is good no output. Still significant output through the RAYA drain. Jejunostomy tube has minimal output. Patient had hemodialysis today 2 L of fluid was removed. Oral half liters yesterday. Patient getting a sedation holiday. General Surgery started the patient on trickle feeding at 10 cc an hour. I did speak to patient's at the bedside. Prognosis remains guarded but there is some improvement. December 03: ICU. Intubated. FiO2 35 PEEP of 5. Drips include IV propofol and Precedex. Getting TPN. Telemetry shows sinus rhythm. Remains on IV Lasix 80 mg twice a day. IV meropenem. Because patient gets easily agitated when transitioning off propofol he has been switched over to Precedex. For hemodialysis today. December 04: ICU. Intubated. FiO2 35 and a PEEP of 5. Patient been taken off propofol is on Precedex. Telemetry sinus rhythm. J-tube with minimal output. RAYA drain with decreased output. NG tube to suction minimal output. Family wanted to hold off trickle feeding until cleared by oncology. Which he did today. Trickle feeding will be started today. Spoke to patient's and one of the daughters at the bedside. Dr. Russ is spoken to the earlier this point they want to do further tracheostomy tube. December 05: ICU. Intubated. FiO2 35 PEEP of 5. Patient remains on Precedex and PPN. Patient's dialysis catheter was not functioning is getting another [address] Bobby this afternoon. Remains on IV meropenem. Has a RAYA drain in the jejunostomy tube to gravity. NG tube to low intermittent suction. No family at the bedside. December 06: ICU. Intubated. FiO2 35 PEEP of 5. RAYA drain putting out about approximately 120 cc per shift. Patient on IV Precedex. FiO2 35 PEEP of 5. Telemetry-sinus rhythm. Patient occasionally been put on small dose of Levophed specially for hemodialysis getting it today. Also started on midodrine for low blood pressure. Tolerating tube feeding at 10 cc an hour. Also had a bowel movement. Mentation has not improved. Even with sedation holiday. Neurology consulted. CT brain shows no acute process. December 07: ICU. Intubated. FiO2 35 PEEP of 5. Telemetry-sinus rhythm. NG tube to suction low intermittent minimal output. Getting TPN. Tube feeding at 20 cc an hour. RAYA drain averaging over 100 cc per shift. Remains on Precedex. EEG was done today. Discussed with at the bedside. Family is currently not inclined for tracheostomy tube today. Day 13 of being intubated December 08: ICU. Intubated. FiO2 35 PEEP of 5. Patient is put on back on propofol per outside sales advertising executive Dr. BINGHAM. EEG did show some potential for spikes was put on Keppra by neurology. Telemetry shows sinus rhythm. NG tube to suction with no output. Tube feeding was put on hold because of questionable discharge on the site. Being restarted today. RAYA drain is 150 cc last 12-hour shift. Patient does open eyes. Family has decided to proceed with tracheostomy and surgery has been consulted for the same. Spoke to the at the bedside. For hemodialysis today. December 09: ICU. Intubated FiO2 35 PEEP of 5. Patient seen this morning. Pending tracheostomy placement this afternoon. Remains NPO. G-tube feeding was held overnight. RAYA drain putting out about 100 cc per shift. Received a unit of blood for hemoglobin of 6.6. On 25 mics of propofol. Getting TPN and meropenem. Spoke to the at the bedside. Patient became hypotensive with dialysis yesterday. Levophed had to be given. Only 800 cc were removed yesterday. No hemodialysis today. December 10: ICU intubated. FiO2 35, PEEP 5. Tracheostomy was done yesterday by Dr. Ewing. G-tube feeding was started today at 10 cc an hour. Dietitian following. RAYA drain 12-hour shift overnight put out about 30 cc. Patient hemodialysis today about 1 L removed. Patient has a sacral stage II decub with a dressing. On propofol 20 mics. Spoke to at the bedside. TPN. Meropenem was discontinued yesterday. Active Medications Acetaminophen (Acetaminophen Tab 325 Mg Tab) 650 mg PO Q4HR PRN PRN Reason: Fever and/ or Pain Last Admin: 12/09/23 20:09 Dose: 650 mg Acetaminophen (Acetaminophen Oral Susp (Peds) 3,840 Mg/120 Ml Bottle) 480 mg PO Q4HR PRN PRN Reason: Fever Albuterol/Ipratropium (Ipratropium-Albuterol 3 Ml Neb) 3 ml INHALATION RT-QID [facility] Last Admin: 12/11/23 11:16 Dose: 3 ml Albuterol/Ipratropium (Ipratropium-Albuterol 3 Ml Neb) 3 ml INHALATION RT-Q2H PRN PRN Reason: Shortness Of Breath Or Wheezing Last Admin: 12/03/23 03:45 Dose: 3 ml Chlorhexidine Gluconate (Chlorhexidine Gluconate 15 Ml Cup) 15 ml MUCOUS MEM BID [facility] Last Admin: 12/11/23 09:02 Dose: 15 ml Darbepoetin Scooby (Darbepoetin Scooby 40 Mcg/0.4 Ml Syringe) 40 mcg SQ Q7D [facility] Last Admin: 12/10/23 09:27 Dose: 40 mcg Dextrose/Water (Dextrose 50% Syringe 50 Ml) 25 ml IVP PER PROTOCOL PRN; Protocol PRN Reason: Hypoglycemia Dextrose/Water (Dextrose 50% Syringe 50 Ml) 50 ml IVP PER PROTOCOL PRN; Protocol PRN Reason: Hypoglycemia Furosemide (Furosemide 10 Mg/Ml 10 Ml Vial) 80 mg IV Q12H [facility] Last Admin: 12/11/23 05:44 Dose: 80 mg Hydromorphone HCl (Hydromorphone 0.5 Mg/0.5 Ml Syringe) 0.5 mg IVP Q6HR PRN PRN Reason: Pain Last Admin: 12/11/23 00:00 Dose: 0.5 mg Sodium Chloride (Saline 0.9%) 1,000 mls @ 20 mls/hr IV .Q24H [facility] Last Admin: 12/10/23 15:02 Dose: 20 mls/hr Norepinephrine Bitartrate 8 mg (/ Sodium Chloride) 258 mls @ 6.368 mls/hr IV .Q24H [facility]; Protocol Last Titration: 12/11/23 02:15 Dose: 0 mcg/kg/min, 0 mls/hr Propofol 1,000 mg/ IV Solution 100 mls @ 9.324 mls/hr IV .[id number] [facility]; Protocol Last Admin: 12/11/23 13:18 Dose: 20 mcg/kg/min, 12.432 mls/hr Parenteral Vitamin Supplement 10 ml/ Zinc/Copper/Manganese/Selenium 1 ml/ Sodium Acetate 68 meq/ Sodium Chloride 68 meq / Potassium Chloride 14 meq/Calcium Gluconate 2.25 gm/Magnesium Sulfate 0.5 gm/Amino Acids/Dextrose 1,092.5 mls @ 120 mls/hr IV .BY DURATION [facility] Last Admin: 12/10/23 13:52 Dose: 120 mls/hr Sodium Acetate 68 meq/ Sodium Chloride 68 meq/ Potassium Chloride 14 meq/ Calcium Gluconate 2.25 gm/ Magnesium Sulfate 0.5 gm/ Amino Acids/Dextrose 1,081.5 mls @ 120 mls/hr IV .BY DURATION [facility] Last Admin: 12/11/23 11:01 Dose: 120 mls/hr Insulin Aspart (Insulin Aspart (Novolog) 100 Unit/Ml Vial) 0 unit SQ 0000,0600,1200,1800 [facility]; Protocol Last Admin: 12/11/23 12:04 Dose: Not Given Insulin Detemir (Insulin Detemir (Levemir) 100 Unit/Ml Syr) 24 unit SQ DAILY@0700 [facility] Last Admin: 12/11/23 06:43 Dose: 24 unit Levetiracetam (Levetiracetam Iv 500 Mg/5 Ml Vial) 500 mg IVP Q24HR [facility] Last Admin: 12/11/23 09:02 Dose: 500 mg Lorazepam (Lorazepam 2 Mg/Ml Inj) 1 mg IV Q6HR PRN PRN Reason: Anxiety Last Admin: 12/11/23 12:12 Dose: 1 mg Methylprednisolone Sodium Succinate (Methylprednisolone Sod Succi 40 Mg/Ml 1 Ml Vial) 40 mg IV DAILY@1800 [facility] Last Admin: 12/10/23 17:48 Dose: 40 mg Metoprolol Tartrate (Metoprolol Tartrate 5 Mg/5 Ml Vial) 2.5 mg IVP Q6HR PRN PRN Reason: Heart Rate - HIGH Last Admin: 11/27/23 08:25 Dose: 2.5 mg Midodrine (Midodrine 5 Mg Tab) 5 mg PO AC-TID [facility] Last Admin: 12/11/23 13:18 Dose: 5 mg Miscellaneous Information (Magnesium Replacement Protocol 1 Each Misc) 1 each MISCELLANE DAILY PRN; Protocol PRN Reason: Per Protocol Naloxone HCl (Naloxone 0.4 Mg/Ml 1 Ml Vial) 0.2 mg IV Q2M PRN PRN Reason: Opioid Reversal Pantoprazole Sodium (Pantoprazole 40 Mg/10 Ml Vial) 40 mg IVP BID [facility] Last Admin: 12/11/23 09:01 Dose: 40 mg Past medical history to include: GERD Social history: . No smoking. Physical examination: VITAL SIGNS: 99 1, 78, 30, 100/71, GENERAL: Sedated, right chest wall port EYES: Pupils equal. Conjunctiva edouard l. HEENT: External appearance of nose and ears normal, oral cavity-endotracheal tube. NG tube-low intermittent suction NECK: JVD unable to assess; masses not palpable. HEART: First and second heart sounds are normal; edema, present LUNGS: Respiratory rate increased, decreased breath sounds ABDOMEN: Soft, nontender, liver spleen not palpable, no masses palpable..jejunostomy tube-attached to tube feeding 20 cc an hour. RAYA drain. Incision with stitches PSYCH: Sedated INVESTIGATIONS, reviewed in the clinical context: December 10: White count 21.3 hemoglobin 7.4 platelets 129 potassium 4.2 BUN 111 creatinine 3.77 December 09: White count 26.1 hemoglobin 8.6 platelets 154 potassium 4.1 BUN 86 creatinine 3.31. Hemoglobin this morning was 6.6 prior to transfusion EEG-evidence of generalized cerebral dysfunction and sporadic intermittent higher amplitude sharply contoured waves mainly bifrontal. Showing cortical irritability. 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 Serosal fibrous adhesions. Viable margins. December 04: White count 10.2 hemoglobin 8 platelets 90 sodium 130 potassium 4 BUN 70 creatinine 2.89 Sputum culture: [November 25]: Citrobacter freundii. Pseudomonas aeruginosa November 20: White count 14.4 hemoglobin 8.8 platelets 229 potassium 4.1 BUN [address] scan abdomen [November 19] possible small bowel obstruction Stool: C. difficile negative November 15: WBC 13 hemoglobin 7.7 platelets 248 potassium 4.3 creatinine 0.87 2D echo: EF 55 to 60%. Kidneys bladder: Unremarkable November 13: White count 12 hemoglobin 6.9 platelets 276 potassium 4.4 creatinine 1.21 magnesium 1.8 iron 6 TIBC 365% saturation 1.64 transferrin 261 ferritin 34.6 B12 569 folate 4.4 November 11: Creatinine 0.86 EGD: Large amount of retained solid liquid food noted in the stomach. Large superficial gastric antral ulceration involving most of the antrum extending into the pylorus causing pyloric stenosis. Biopsies were obtained. Chest x-ray film personally reviewed by me-scattered infiltrates Assessment plan: -Aspiration pneumonitis bilateral from retained gastric contents mostly food and liquids, causing acute hypoxic respiratory failure: Subsequent sputum culture November 25: Citrobacter freundii, Pseudomonas aeruginosa IV meropenem-discontinued December 09 Pulmonary following -Acute pulmonary edema and fluid overload from hypoalbuminemic state and fluids from IV.:: Has been getting Lasix and dialysis -Altered mentation. Possibly encephalopathy. Could be delirium. CT brain [December 06] nothing acute Neurology following EEG-evidence of generalized cerebral dysfunction and sporadic intermittent higher amplitude sharply contoured waves mainly bifrontal. Showing cortical irritability. Keppra was started on December 07 -Small l bowel perforation at site of jejunostomy tube tip with balloon..: Portion of small bowel resected. On November 24. New J-tube was placed.- drainage to gravity:-Now discontinued Trickle feeding-restarted 10 cc an hour today -Acute kidney injury. Possible ATN from hypotensive shock: Slow to respond Renal ultrasound unremarkable. Started on renal replacement therapy on November 28. Followed by nephrology -Nutrition Jejunostomy tube placed November [address] Ewing Getting TPN. Trickle feeds resumed through the J-tube at 10 cc an hour -Acute recurrent atrial fibrillation-converted to sinus rhythm Received IV amiodarone. Cardiology following Lopressor -Acute hypoxic respiratory failure from aspiration pneumonia, status post ventilator assisted: Reintubated November 25. FiO2 35 PEEP of 5 Tracheostomy tube-by Dr. Zepeda on December 09 -Septic shock, recovered -Hypertension Patient started on Cleviprex-discontinued -Intermittent hypotension Intermittent use of Levophed. 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 Also anemia of blood draw. Iron deficiency anemia Received 3rd unit of blood today. IV iron. -Severe thrombocytopenia. Would consider coagulation disorder secondary to infection., In the setting of underlying lymphoma.: Recovered Hematology following. -Acute blood loss anemia, Has received 3 units of blood -Sacral stage II decub ulcer Dressing in place -GERD PPI -Acute diarrhea secondary to tube feeding.: Resolved C. difficile ruled out. -Large superficial gastric antral ulceration involving the gastric antrum extending into the pylorus with gastric outlet obstruction. 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 Port placed. For outpatient PET scan. -Full code Hemodialysis today. Spoke to at the bedside Past Medical History Past Medical History: GERD/Reflux History of Any Multi-Drug Resistant Organisms: None Reported Past Surgical History: Heart Catheterization Additional Past Surgical History / Comment(s): colonsocopy,spinal injection, Past Anesthesia/Blood Transfusion Reactions: No Reported Reaction Past Psychological History: No Psychological Hx Reported Smoking Status: Never smoker Past Alcohol Use History: None Reported Past Drug Use History: None Reported
[2023-12-11 17:40] LABS: Glucose,Whole Blood 208 mg/dL (70-110)
[2023-12-11 23:19] LABS: Glucose,Whole Blood 294 mg/dL (70-110)
[2023-12-12 05:15] LABS: Anisocytosis Slight; Basophils % (A) 0 %; Eosinophils % (A) 0 %; HCT 22.6 % (39.0-53.0); HGB 7.4 gm/dL (13.0-17.5); Hypochromasia Slight; Lymphocytes # (A) 0.9 k/uL (1.0-4.8); Lymphocytes % (A) 5 %; MCH 28.2 pg (25.0-35.0); MCHC 32.6 g/dL (31.0-37.0); MCV 86.5 fL (80.0-100.0); Mean Platelet Volume 9.9; Monocytes # (A) 0.5 k/uL (0-1.0); Monocytes % (A) 3 %; Neutrophils # (A) 16.4 k/uL (1.3-7.7); Neutrophils % (A) 92 %; Platelet Count 151 k/uL (150-450); RBC 2.62 m/uL (4.30-5.90); RDW 19.5 % (11.5-15.5); WBC 17.9 k/uL (3.8-10.6)
[2023-12-12 05:23] LABS: Glucose,Whole Blood 338 mg/dL (70-110)
[2023-12-12 05:29] LABS: ABG Base Excess 3.8 mmol/L; ABG HCO3 27 mmol/L (21-25); ABG Oxygen Saturation 98.1 % (94-97); ABG PCO2 36 mmHg (35-45); ABG PH 7.49 (7.35-7.45); ABG PO2 92 mmHg (83-108); ABG TCO2 29 mmol/L (19-24); Allen Test Performed? Yes
[2023-12-12 05:36] LABS: African American GFR (CKD) 23 (>60 ml/min/1.73 sqM); Anion Gap 6 mmol/L; Blood Urea Nitrogen 88 mg/dL (9-20); Calcium 7.5 mg/dL (8.4-10.2); Carbon Dioxide 27 mmol/L (22-30); Chloride 100 mmol/L (98-107); Glucose 314 mg/dL (74-99); Non-African American GFR(CKD) 20 (>60 ml/min/1.73 sqM); Phosphorus 4.1 mg/dL (2.5-4.5); Sodium 133 mmol/L (137-145)
--- NOTE | 2023-12-12 07:57 | XR ---
EXAMINATION TYPE: XR chest 1V portable DATE OF EXAM: 12/12/2023 COMPARISON: 12/11/2023 HISTORY: SOB, Follow Up FINDINGS: Indwelling tubes and catheters are unchanged. Patchy infiltrate throughout the right lung with layering effusion. The left lung remains clear. Stable appearance of the cardio-mediastinal structures at this time. Pleural effusion unchanged. IMPRESSION: 1. Patchy infiltrate throughout the right lung with layering effusion. The left lung remains clear. [facility], , 12/12/2023 7:54 AM
--- NOTE | 2023-12-12 09:36 | P.PN ---
Subjective Patient is seen in follow-up for acute kidney injury. Patient underwent exploratory laparotomy with small bowel obstruction NG tube replacement Sep tem2023. Remains off Levophed. Intubated. Receiving TPN. Also on tube feeds. Nonoliguric. Started on hemodialysis November 29, 2023. Status post tracheostomy December 10, 2023. Vital signs stable. Off vasopressors. General: Resting in bed. HEENT: Tracheostomy noted. NG tube noted. LUNGS: Scattered rhonchi. HEART: Regular rate and rhythm. ABDOMEN: No drainage. EXTREMITITES: 1+ edema. Objective - Vital Signs Vital signs: Vital Signs Temp 100.4 F H 12/12/23 09:00 Pulse 99 12/12/23 09:00 Resp 34 H 12/12/23 09:00 BP 113/62 12/12/23 09:00 Pulse Ox 99 12/12/23 09:00 FiO2 30 12/12/23 08:27 Intake & Output 12/11/23 12/12/23 12/12/23 18:59 06:59 18:59 Intake Total 3167.060 3373.860 346 Output Total 3605 1595 350 Balance -922.616 5395.860 -4 Weight 104.6 kg 105.2 kg Intake: IV 1356 1859 286 0.9 KVO 240 260 40 Normal Saline Pressure 36 39 6 Saline TPN 1080 1560 240 Intake, IV Titration 2709.841 1951.860 Amount Norepinephrine 8 mg In 1.910 Sodium Chloride 0.9% 250 ml @ 0.03 MCG/KG/MIN 6. 368 mls/hr IV .Q24H NIRMAL Rx#:[id number] Sodium Acetate 68 meq 1081.5 1081.5 Sodium Chloride 4Meq/ml Vial 68 meq Potassium Chloride 14 meq Calcium Gluconate 2.25 gm Magnesium Sulfate gm 0.5 gm In Amino Acid 5%-D15w 1,000 ml @ 120 mls/hr IV .BY DURATION NIRMAL Rx#: [id number] propofoL 1,000 mg In 99.560 101.450 Empty Bag 1 bag @ 15 MCG/ KG/MIN 9.324 mls/hr IV . [id number] NIRMAL Rx#:[id number] Tube Feeding 140 330 60 Hemodialysis 400 Other 90 Output: Gastric Drainage 175 Drainage 180 70 Right Abdomen 180 70 Urine 1025 1350 350 Hemodialysis 1400 Hemodialysis Net Amount 1000 Other: Voiding Method Indwelling Catheter Indwelling Catheter ABP, PAP, CO, CI - Last Documented Arterial Blood Pressure 151/59 - Labs CBC & Chem 7: 12/12/23 04:44 12/12/23 04:44 Labs: Abnormal Lab Results - Last 24 Hours (Table) 12/11/23 12/11/23 12/11/23 Range/Units 05:35 11:43 17:38 WBC (3.8-10.6) k/uL RBC (4.30-5.90) m/uL Hgb (13.0-17.5) gm/dL Hct (39.0-53.0) % RDW (11.5-15.5) % Neutrophils # (1.3-7.7) k/uL Lymphocytes # (1.0-4.8) k/uL ABG pH (7.35-7.45) ABG HCO3 (21-25) mmol/L ABG Total CO2 (19-24) mmol/L ABG O2 Saturation (94-97) % Hemoglobin (13.0-17.5) gm/dL Sodium (137-145) mmol/L BUN (9-20) mg/dL Creatinine (0.66-1.25) mg/dL Glucose (74-99) mg/dL POC Glucose (mg/dL) 142 H 208 H (70-110) mg/dL Calcium (8.4-10.2) mg/dL Phosphorus 4.7 H (2.5-4.5) mg/dL 12/11/23 12/12/23 12/12/23 Range/Units 23:17 04:44 04:44 WBC 17.9 H (3.8-10.6) k/uL RBC 2.62 L (4.30-5.90) m/uL Hgb 7.4 L (13.0-17.5) gm/dL Hct 22.6 L (39.0-53.0) % RDW 19.5 H (11.5-15.5) % Neutrophils # 16.4 H (1.3-7.7) k/uL Lymphocytes # 0.9 L (1.0-4.8) k/uL ABG pH (7.35-7.45) ABG HCO3 (21-25) mmol/L ABG Total CO2 (19-24) mmol/L ABG O2 Saturation (94-97) % Hemoglobin (13.0-17.5) gm/dL Sodium 133 L (137-145) mmol/L BUN 88 H (9-20) mg/dL Creatinine 2.96 H (0.66-1.25) mg/dL Glucose 314 H (74-99) mg/dL POC Glucose (mg/dL) 294 H (70-110) mg/dL Calcium 7.5 L (8.4-10.2) mg/dL Phosphorus (2.5-4.5) mg/dL 12/12/23 12/12/23 Range/Units 05:21 05:28 WBC (3.8-10.6) k/uL RBC (4.30-5.90) m/uL Hgb (13.0-17.5) gm/dL Hct (39.0-53.0) % RDW (11.5-15.5) % Neutrophils # (1.3-7.7) k/uL Lymphocytes # (1.0-4.8) k/uL ABG pH 7.49 H (7.35-7.45) ABG HCO3 27 H (21-25) mmol/L ABG Total CO2 29 H (19-24) mmol/L ABG O2 Saturation 98.1 H (94-97) % Hemoglobin 7.5 L (13.0-17.5) gm/dL Sodium (137-145) mmol/L BUN (9-20) mg/dL Creatinine (0.66-1.25) mg/dL Glucose (74-99) mg/dL POC Glucose (mg/dL) 338 H (70-110) mg/dL Calcium (8.4-10.2) mg/dL Phosphorus (2.5-4.5) mg/dL Assessment and Plan Plan: Assessment: 1. Acute kidney injury secondary to ATN secondary to septic shock. Creatinine 0.86 on admission and up to 5.38 dated November 29, 2023. Urine output improved, now nonoliguric. UA fairly benign. No hydronephrosis noted on imaging. Started on hemodialysis November 29, 2023 due to volume overload. Patient initially had a right femoral catheter placed which subsequently became occluded and a left femoral catheter was placed December 06, 2023. 2. Perforated small bowel status post exploratory laparotomy with abdominal washout, small bowel resection and J-tube replacement November 25, 2023. 3. A-fib with RVR. s/p amiodarone drip. Also received digoxin this admission. 4. Recently diagnosed gastric B-cell lymphoma. 5. Septic shock. Likely abdominal source. On IV antibiotics. Off vasopressors now. 6. Hypocalcemia secondary to acute kidney injury. Replaced. Improved. 7. Metabolic acidosis secondary to acute kidney injury. Improved. 8. Volume overload. Improved with diuresis and ultrafiltration. 9. Status post tracheostomy December 10, 2023. 10. Anemia. Component of chronic illness and acute blood loss. Received blood transfusion and DDAVP this admission. On Aranesp. Plan: Hemodialysis tomorrow. Maintain IV Lasix. Maintain tube feeds. TPN to be stopped later today. Avoid nephrotoxins. Preserved EF noted on echocardiogram. Phosphorus level 4.1 dated December 12, 2023. Continue to monitor for renal recovery. Case discussed with present at bedside.
--- NOTE | 2023-12-12 11:10 | P.PN ---
Subjective Progress Note Date: 12/12/23 This is a 73-year-old white male with history of chronic abdominal pain for the last 8 months has been treated with Protonix 40 mg daily for the last 3 months with no improvement. Patient had a 22 pound weight loss in the last [address] of the abdomen and pelvis 3 weeks ago showed thickening of the antral wall with pathological adenopathy posterior to the stomach suspicious of neoplasm. Today the patient underwent elective upper endoscopy to evaluate further, patient received IV sedation by anesthesia endoscope was inserted into the mouth, esophagus was intubated without any difficulty there was evidence of large amount of liquid and solid food noted in the stomach suggestive of gastric outlet obstruction. Scope could not be advanced through the pylorus, however in the prepyloric area there was a large superficial ulceration identified with multiple biopsies were done from this area. The body cardia and fundus could not adequately visualize because of large amount of retained food in the stomach. Scope was withdrawn back to the stomach and upon careful examination the mucosa of the antrum body and cardia as well as the fundus appeared normal. Procedure was being performed and biopsies were done patient threw up and subsequently became hypoxic there was clearly evidence of witnessed aspiration anesthesia intubated the patient, procedure was terminated, and the patient was transferred to the ICU, this consult was initiated. Patient is now on assist- control rate of 20 tidal volume 500 FiO2 70% PEEP of 10 ABG is pending, earlier ABG showed profound hypoxia patient is on propofol at 50 mcg/kg/min, next ABG is pending. Chest x-ray showed chronic changes without evidence of acute pulmonary disease. Patient was seen and examined today on 11/13/2023, remains in the ICU, intubated mechanically ventilated, on assist-control rate of 20 tidal volume 500 FiO2 50% and PEEP of 10 ABG showed a pO2 of 143 pCO2 47 pH of 7.28 hence PEEP was cut down to 6, and increased rate to 22. Patient is still requiring IV fluid at 100 cc/h/LR. Requiring norepinephrine at 0.08 mcg/kg/min he is also on propofol at 50 mg/kg/min antibiotics arce patient is receiving Zosyn. Chest x-ray is damion wing worsening infiltrates specially in the left lung. This could be related to aspiration pneumonia. Patient had witnessed aspiration during endoscopy/upper endoscopy.WBC count is 14 hemoglobin 7.6 basic metabolic profile is normal BUN is 26 creatinine 1.57 obviously the patient sustained some acute kidney injury baseline creatinine 0.86 patient had received fluids over the last 24 hours, remains on fluids at 100 cc/h Patient with seen and examined today on 11/14/2023, patient remains in the ICU, intubated and mechanically ventilated. Failed weaning trial yesterday and he became quite agitated and desaturated once he went off propofol. Had to be placed back on assist-control mode of mechanical ventilation and sedation. Today the patient is on assist-control rate of 22 tidal volume 500 FiO2 50% PEEP of 6. ABG showed a pO2 of 123 pCO2 51 pH of 7.32, and I cut down his FiO2 down to 45%, patient is receiving a unit of packed RBCs for hemoglobin of 6.9 today. Patient had an episode of A-fib RVR at 3 AM in the morning, seen by cardiology, and recommended patient goes on amiodarone. Still requiring norepinephrine at 0.05 mg/kg/min, he is on LR at 100 cc/h propofol at 50 mg/kg/min. Remains empirically on Zosyn for aspiration pneumonia. My plan today is transitioning the patient to Precedex, hopefully discontinue propofol, and at least give the patient a decent weaning trial or at least check weaning parameters before we proceed to weaning trial. Chest x-ray continues to show evidence of pneumonia mostly in the left lung and left lower lobe more specifically. Some pulmonary vascular congestion is noted with interstitial edema, small pleural effusion is also noted/left side. WBC count today is 12 hemoglobin 6.9 basic metabolic profile is normal bicarb is 25, BUN is 25 creatinine is improving down to 1.21 from 1.57 yesterday Patient was evaluated today on 11/15/2023, patient remains in the ICU, he was extubated yesterday, and his extubation was relatively uneventful. However the patient continues to have nasogastric tube in place, his pathology report came back showing non-Hodgkin's lymphoma, patient has gastric outlet obstruction, and the recommendation by GI is to consult surgery for a jejunostomy tube which is appropriate. Patient will be seen today by oncology and he will be seen by general surgery. In the meantime patient is comfortable, he is on 5 L nasal cannula he has LR running at 100 cc/h, he is remains on Zosyn for aspiration pneumonia remains on amiodarone which was started by cardiology for atrial fibrillation with RVR, presently in sinus rhythm. Cannot switch him to oral because of the fact that remains n.p.o., patient remains on TPN. WBC count is 10.7 hemoglobin 7.5 electrolytes are normal renal profile is normal, creatinine normalized to 0.96 Patient was evaluated today on 11/16/2023, remains in the ICU, on 5 L nasal cannula remains on amiodarone at 0.5 mg/min remains on LR at 100 cc/h, however his chest x-ray is showing some component of interstitial edema or could be findings related to his recent episode of aspiration/aspiration pneumonia, nonetheless the patient seems to be a bit symptomatic, he has intermittent cough and wheezing, I am recommending Lasix 40 mg IV push, cut down his IV fluid to 50 cc/h, continue Zosyn, patient will be placed on DuoNeb updrafts and on Solu- Medrol. Patient is scheduled to have jejunostomy-tube placement today. WBC count is 13 hemoglobin 7.7 basic metabolic profile is normal and renal profile is normal Patient was evaluated today on 11/17/2023, patient underwent uneventful placement of a jejunostomy tube yesterday, in the ICU on 5 L, patient is relatively stable, not in any distress, patient continues to have nasogastric tube in place although he did have a J-tube placed yesterday. Patient was seen by oncology for his non-Hodgkin's lymphoma involving the gastric outlet. Today's x-ray showed evidence of pneumonia/bilateral interstitial infiltrate/edema patient was given a dose of Lasix, I reminded the patient had an aspiration episode which was significant. And he required intubation mechanical ventilation for a few days.WBC count today is 9.1 hemoglobin 7.9 electrolytes are normal renal profile is normal hence I plan to transfer the patient out of the ICU to a cardiac floor. And hopefully discharge planning in the next 2 days for The patient was seen today November 18, 2023 in follow-up in the intensive care unit. He is currently sitting up in bed. Awake and alert in no acute distress. He is maintaining O2 saturations in the 90s on 5 L/min per nasal cannula. Glucose 177. Remains on DuoNeb inhalations and Solu-Medrol. Antibiotics in the form of Zosyn. He has a J-tube in place. He was initiated on vital AF 1.2 at 10 mL an hour with a goal of 82 mL/h The patient is seen today November 19, 2023 in follow-up in the intensive care unit. He is a regular medical floor overflow patient. He is currently sitting up in a chair. Awake and alert in no acute distress. He is maintaining O2 saturations in the 90s on 5 L/min per nasal cannula. No IV fluids. He denies any worsening shortness of breath, cough or congestion. He is having some issues with diarrhea. He remains on Zosyn. He is receiving vital AF at 55 mL/h with a goal of 82 mL/h. Glucose 161. Solu-Medrol, DuoNeb inhalations. The patient is seen today November 20, 2023 in follow-up on the regular medical floor. He is currently up in a chair at the bedside. Awake and alert in no acute distress. Denies any worsening shortness of breath, cough or congestion. He is maintaining O2 saturation in the 90s on 3 L/min per nasal cannula. He continues on Zosyn. Continues on bronchodilators and steroids. White count 12.3. Hemoglobin 9.0. Platelets 258. Glucose 168. He is not tolerating his tube feeds as he has developed diarrhea. C. difficile screen was negative. Abdominal series revealed cardiomegaly with left basilar acute infiltrate and/or atelectasis. Overall nonspecific bowel gas pattern. A small bowel obstruction needs to be considered. Progress note dated November 21, 2023. The patient is seen in room 517. The patient is currently on 3 L of oxygen. He continues on Zosyn. His biggest complaint has been abdominal discomfort and diarrhea. He did have a CT scan of the abdomen and pelvis. Current laboratory data includes a white count of 14.4, hemoglobin 8.8, hematocrit 28.7, and platelet count 229,000. Sodium 139, potassium 4.1, chlorides 103, CO2 30, BUN 42, creatinine 0.94. Glucose is 158. Calcium is 8.5. Progress note dated November 22, 2023. 73-year-old male seen in room 517. He currently is on 2 L of oxygen. Room air saturation was 89%. Chest CT shows bilateral patchy infiltrates. He continues on Zosyn. He is still not taking anything by mouth. No new laboratory data today other than a glucose of 138. Gram stain was negative. Progress note dated November 23, 2023. 73-year-old male seen in room 517. He is resting comfortably without complaints. He continues on saline at 10 cc an hour, tube feedings with Pivot at 20 cc an hour, Zosyn, and 2 L by nasal cannula. He has had an uneventful night. Laboratory data today includes a white count 14.5, hemoglobin 9.7, hematocrit 31.4, and a platelet count of 242,000. Sodium 138, potassium 3.7, chlorides 106, CO2 26, BUN 39, creatinine 0.95. Glucose is 181. Calcium is 8.5. Sputum sampling was negative. Progress note dated November 24, 2023. 73-year-old male who is seen in room 517. The patient has been having significant abdominal discomfort, and went for a evaluation, ordered by surgery today, to determine whether or not the feeding tube, was in proper position, and whether or not there is anything acutely going on in the abdomen. He had been having diarrhea. He is on 3 L of oxygen. He has been here for 12 days. This is a patient, that had a prior EGD, aspirated, because of gastric outlet obstruction, and was diagnosis of non-Hodgkin's lymphoma. He is currently on Zosyn, DuoNebs, and Solu-Medrol. He has been NPO. Chest x-ray showed a left lower lobe infiltrate. Abdominal x-ray showed multiple air-fluid levels. CT of the abdomen showed multiple dilated small bowel loops, consistent with obstruction, pneumoperitoneum, ascites, and cholelithiasis. White count was 14.1, hemoglobin 8.9, hematocrit 29.5, and platelet count was 255,000. Glucose was 143. 11/25/2023, the patient is being seen in the intensive care unit. The patient is critically ill, n.p.o., he has an NG tube in place. Following the NG tube insertion, there was a total of 2.0 L of output and the patient's J-tube was also draining approximately 200 cc over the past 8 hours. Continues to have abdominal pain which is rather diffuse and the patient has direct abdominal tenderness. CAT scan of the abdomen was noted and was consistent with small bow el obstruction. The patient has a stomach that was inflated and in the same time there were multiple loops of small bowel distended with fluid. This extended to the pelvis. J-tube with contrast nondilated small bowel loops within the mid abdomen. Additional loops of small bowel were seen that was dilated. There was some contrast in the right lower quadrant and contrast was also in the cecum. No transition point was identified. The dilated loops of the bowel appeared to be in the proximal jejunum and distal to the duodenum. General surgery is on the case the patient will be taken to the operating room for another exploratory laparotomy. Noted the CAT scan of the abdomen also showed pneumoperitoneum and small amount of ascites and cholelithiasis. Hemodynamically, the patient is currently on normal saline at rate of 75 cc an hour. He is hypotensive and is going to be started on pressors. He is on 4 L of oxygen by nasal cannula. He also has sustained acute kidney injury. Blood work from today shows a rise in the creatinine which is currently up to 2.5 with a BUN of 57. Serum bicarb is at 14 with an anion gap of 11. The patient WBC count is at 8.2 with a hemoglobin of 12.3 and a platelet count of 188. Chest x- ray from this morning is showing a right-sided port and a stable left lung airspace disease and an NG tube being in place. The patient remains on IV Zosyn. The patient is receiving Dilaudid for pain control. The patient remains on IV Solu-Medrol 60 mg every 6 hours. It was noted that the patient's surgical wound over the port has dehisced and there is some serous drainage and erythema at the incision site. Awake and alert and communicating. Family at the bedside. No apparent signs of respiratory distress at this point. 11/26/2023, the patient is being seen in follow-up. Events from yesterday was noted and the patient was taken to the operating room for exploratory laparotomy. The patient was found to have large amount of free fluid noted in the abdomen and there was significant contamination. There was perforation of the small bowel with the balloon of the previously inserted jejunostomy tube penetrating through the perforation. As such, the tube was removed, abdominal washout was done. Small bowel resection was done and the patient had a nodular jejunostomy tube inserted. Postop, the patient was extubated he was unable to tolerate extubation and the patient was kept intubated on mechanical ventilator and he was brought back to the intensive care unit. He is currently postop day #1 following his small bowel resection. Abdominal surgical wound site is dry clean and intact. This morning, the patient remains sedated on propofol which is currently running at 35 mcg/kg/min. He is on assist-control mode of mechanical ventilation at rate of 28, tidal volume of 550, FiO2 of 60% with a PEEP of 5. Blood gas from today shows a pH of 7.35 with a pCO2 44 and pO2 of 88. Chest x-ray shows adequate positioning of the orotracheal tube. The patient has a Mediport on the right and a subclavian triple-lumen catheter on the left and the patient has persistent bilateral pleural effusion and infiltrates in lung base bilaterally. Hemodynamically, the patient remains in shock. He has been on high-dose norepinephrine which is currently running at 0.28 mcg/kg/min and the patient is also on vasopressin at 0.03 units an hour. He is IV fluids are in the form of bicarb infusion running at rate of 150 cc an hour. He is in sinus tachycardia. NG tube output has been 250 cc over the past 8 hours and the output from the J-tube is minimal at this point in time. Urine output is quite diminished as the patient has also sustained acute kidney injury. Overall fluid balance is +4.9 L over the past 24 hours. The patient's white cell count of 5.7 with a hemoglobin 9.9 and platelet count of 172. BUN is 72 with a creatinine of 2.8 and sodium levels at 143. The calcium level is at 6.5. LFTs are normal. Triglyceride level is at 315. On 11/27/2023, the patient remains critically ill. Remains intubated and on mechanical ventilator, still awaiting shock which is essentially septic shock. Remains on propofol which is running at 50 mcg/kg/min. Remains on the mechanical ventilator, assist-control mode with rate of 28, tidal volume of 550 with an FiO2 of 60% with a PEEP of 5. Blood gas shows a pH of 7.29 with a pCO2 of 47 and pO2 of 78. The patient had a follow-up chest x-ray that showed lower lobe consolidation slightly worse on the right and the orotracheal tube is in a good location. Urine output is diminished in the order of 5 to 10 cc an hour and the patient is also developing progressive worsening renal function. Remains on normal citrate of 150 cc an hour and the patient was started on TPN which is running at 30 cc an hour. He has a triple-lumen catheter in his left subclavian. Overall fluid balance over the past 24 hours is +3.9 L. Output from the NG tube and the J-tube is minimal. Hemodynamically, he is hypotensive and norepinephrine running at 0.45 mcg/kg/min. Vasopressin is a physiologic dose. He received amiodarone and he remains on maintenance amiodarone of 0.5 mg/min and the patient continues to be in atrial fibrillation and is having episodes of tachycardia. The white cell count is at 13, hemoglobin 9.4 platelet count is pending. The patient's BUN is 83 with a creatinine of 3.7. Sodium is at 140 with a potassium level of 5.5 dropped down to 4.4 as the sample was hemolyzed. LFTs are normal. Abdominal wound is dry clean and intact. RAYA drainage is essentially serous at this point in time. 11/28/2023, the patient is being seen for a follow-up. The patient remains intu bated on mechanical ventilator. This morning, the patient tolerated propofol drip running at 50 mcg/kg/min. The patient is on mechanical ventilator assist- control mode with rate of 28, tidal volume of 550, FiO2 55% with a PEEP of 5. Chest x-ray shows stable findings with lower lobe consolidations bilaterally. Blood gas shows a pH of 7.32 with a pCO2 38 and pO2 90. Neuropathy has improved and the patient is producing approximately 30 cc an hour and the overall input output balance is +3.3 L over the past 24 hours. The patient is still on pressors although his pressor requirements have improved since yesterday. He is on norepinephrine which is running at 0.05 mcg/kg/min and vasopressin physiologic dose. Also, the patient on amiodarone drip regarding his chronic ongoing atrial fibrillation. Amiodarone drip is running at 0.5 mg/min. Nevertheless, the rate is under much better control. Noted the patient was given a dose of digoxin 0.5 mg IV yesterday which helped with rate control. Remains on normal citrate of 150 cc an hour. Remains on TPN at 40 cc an hour. Output from the J-tube is fecal. Output from the NG tube is more gastric. Surgical wound site is dry clean and intact. Sputum Gram stain and culture showing Pseudomonas and Citrobacter. Note that the Citrobacter was intermediate resistance to Zosyn. This will be discussed further with infectious disease. Blood cultures are still pending for now. They have negative based on the most recent check. Blood work from today shows WBC count 11.2, hemoglobin 7.9 and platelet count of 46. Sodium is at 140, potassium is at 4.3, chloride is 114 with a bicarb of 18. He has 93 and the creatinine is 4.8. Serum random vancomycin level is at 25.7. On 11/29/2023, the patient is being seen for a follow-up. Remains intubated on the mechanical ventilator. The patient sedated on propofol which is running at 35 mcg/kg/min. Synchronous with mechanical ventilator. On today's evaluation, he is on assist-control mode with rate of 28, tidal volume of 550, FiO2 55% with a PEEP of 5. Chest x-ray shows lower lobe consolidation bilaterally worse on the right and the orotracheal tube is in good location. The blood gas showed a pH of 7.34 with a pCO2 of 35 and a pO2 of 84. No significant orotracheal secretions. Hemodynamically improved compared to yesterday. In fact, the patient is on minimal norepinephrine that was discontinued earlier this morning. The patient has converted to normal sinus rhythm. Remains on amiodarone at 0.5 mg/min. Overall fluid balance over the past 24 hours is 2.4 L positive. Urine output has been adequate and the patient is currently on IV Lasix. Nevertheless, the patient has developed progressive worsening renal function. Creatinine is up to 5.3 on today's evaluation with a potassium level of 4.4. Serum bicarb is at 18 with an anion gap of 9. WBC count is at 8.1 with a hemoglobin of 7 and a platelet count of 32 which has dropped compared to earlier evaluation. The rest of the coagulation profile was normal from 11/28/2023. Fibrinogen level is slightly elevated. Sputum samples have shown a combination of Citrobacter and Pseudomonas aeruginosa. Based on cultures and sensitivities, the patient will be taken off his IV Zosyn and he will be switched to IV merop enem. Output from the J-tube is fecal. Output from the NG tube is gastric and surgical wound site is dry clean and intact. He is afebrile for now. Hemodynamically, the patient is doing better. He remains on TPN for nutritional support. IV fluids are also running at a rate of 75 cc an hour. Remains on vancomycin. 11/30/2023, the patient is being seen for a follow-up. The patient remains on propofol at 50 mcg/kg/min. Ventilator settings are essentially unchanged. The patient remains on assist-control mode with rate of 18, tidal volume of 400, FiO2 50% with a PEEP of 5. The blood gas showed a pH of 7.37 with a pCO2 of 43 and pO2 of 127. Chest x-ray shows no significant interval change. Patient remains on normal saline at rate of 75 cc an hour and TPN at rate of 35 cc an hour. Fluid balance is positive. Hemodialysis was performed yesterday and the second session of hemodialysis to be done today. The patient's urine output is in the order of 20 to 30 cc an hour. The patient has an NG output of 350 cc for yesterday and the drainage from the J-tube is in the order of 400 cc over the past 24 hours. The blood work shows a WBC count of 10.8, hemoglobin 8.1 and platelet count of 41. Platelet counts are essentially stable and slightly improved compared to yesterday. The sodium level is at 133, potassium is at 4.3, BUN is 93 with a creatinine of 3.6. LFTs are within normal limits. Albumin is down to 2.1. The patient is currently on no pressors. Norepinephrine and vasopressin are both discontinued and the patient remains in normal sinus rhythm. No other significant events overnight. Family has been updated on his condition. Antibiotic coverage is currently with IV meropenem. Vancomycin and Zosyn have been both discontinued. On 12/01/2023, the patient remains sedated on propofol which is running at 25 mcg/kg/min., Comfortable and synchronous mechanical ventilator. The patient remains on assist-control mode rate of 28, tidal volume of 550, FiO2 40% and PEEP of 5. Blood gas shows a pH of 7.49 with a pCO2 of 34 and pO2 of 121. Patient underwent hemodialysis yesterday. No plans for hemodialysis today the patient is producing urine output. Remains on TPN for nutrition support rate of 75 cc an hour. IV fluids are currently at KVO. The chest x-ray from today shows bilateral lower lobe consolidation worse on the right. No significant change in the volume status. The patient continues to have third spacing and edema in all 4 extremities. Nevertheless, urine output is adequate at this point in time and the patient remains on Lasix 80 mg IV every 12 hours. Remains NPO. NG tube and J-tube are both drainage. Output is noted. Remains on IV meropenem. Afebrile. Currently on no pressors. Blood work shows a WBC count of 11.4, hemoglobin of 8.1 and platelet count of 46. Sodium is at 131, potassium level is at 3.7, chloride 101 and bicarb is at 24. BUN is 84 with a creatinine of 3.6. Glucose of 228. LFTs are within normal limits. Patient was reevaluated today on 12/02/23, patient remains in the ICU, patient is familiar to my service, I saw this patient 3 weeks ago. Since then he had a very complicated hospital course, related to his jejunostomy tube dislodging and leaking and picture of abdominal sepsis and worsening pneumonia/ARDS. Patient had to be placed back on mechanical ventilation, and he is now intubated and mechanically ventilated. He is on assist-control rate of 20 tidal volume 550 FiO2 40% PEEP of 5 ABG showed a pO2 of 111 pCO2 38 pH of 7.43 and I cut down his FiO2 to 35% and increase his flow rate from 60-70. Patient remains on TPN at 75 cc/h he is on propofol at 25 mcg/kg/min patient is on Cleviprex which I added today for elevated blood pressure. Receiving Lasix 80 mg every 12 hours is also on Merrem as per infectious disease. Patient is on hemodialysis and being followed by nephrology. Patient required multiple abdominal surgeries since his initial admission. Chest x-ray continues to show worsening pneumonia involving both lungs, right more so than left, I suspect there may be a component of ARDS. His initial presentation was the presentation of aspiration pneumonia to begin with and that was 3 weeks agoWBC count is 10.3 hemoglobin 8.6 sodium 131 potassium 4 chloride 100 bicarb 23 BUN is 111 creatinine 4.02 blood sugar is 248. Albumin is 1.9 Patient was evaluated today on , patient remains in the ICU, intubated and mechanically ventilated. Patient is on assist-control rate of 20 tidal volume 550 FiO2 35% and PEEP of 5 ABG showed a pO2 of 99 pCO2 39 pH of 7.44 patient is undergoing hemodialysis today, and the plan is to remove 2 L. He is remains on propofol at 35 mcg/kg/min, remains on TPN at 75 cc/h. Remains on Merrem. Patient is not requiring any pressors today. Yesterday patient did not tolerate to be off sedation long enough, and today we tried the same sedation interruption, and the patient did not do well post interruption of sedation, became extremely agitated restless, tachycardic, and could not fully assess mental status off sedation. Hence the patient was placed back on AC mode of mechanical ventilation, and the plan is to continue the same supportive care measures. Family updated on his condition and most likely the patient will end up requiring tracheostomy in the next few days.WBC count is 8.5 hemoglobin 8.2 basic metabolic profile is relatively unremarkable BUN is 89 creatinine 3.45 chest x-ray today showed stable chest, suspect some right-sided pleural effusion which would likely improve with hemodialysis/ultrafiltration. X-ray of abdomen showed nonspecific nonobstructive bowel gas pattern Patient was seen today on 12/04/2023, remains in the ICU, intubated mechanically ventilated, on assist-control rate of 20 tidal volume 550 FiO2 35% PEEP of 5 ABG showed a pO2 of 112 pCO2 38 pH of 7.45, hence no changes were made in ventilator settings. Patient is on propofol at 35 mcg/kg/min he is also on IV fluid at KVO TPN at 75 cc/h. Remains on hemodialysis remains on Lasix 80 mg IV push twice daily, remains on Merrem. This x-ray continues to show the same findings/airspace disease in both lungs, not much of a change in the last 2 days, however his oxygenation seems to be improved. WBC count is 7.1 hemoglobin 7.7. Electrolytes are normal, BUN is elevated 77 creatinine 3.32, patient is on hemodialysis. His condition was discussed today with the at bedside, and I do not believe the patient is ready to be weaned or extubated, however he seems to get extremely agitated when he goes off propofol, today I plan to transition propofol to Precedex, give him a trial on Precedex and determine whether the patient becomes more appropriate and at least ready for any weaning trials. Clinically I doubt if this will happen but we will go ahead and try Patient was evaluated today on 12/05/2023, remains in the ICU, intubated mechanically ventilated, not much of a change noted in the last 24 hours. Remains on assist-control of 20 tidal volume 550 FiO2 35% PEEP of 5 ABG showed a pO2 of 90 pCO2 37 pH of 7.48 hence chose not to change any of his ventilator settings. Yesterday the patient failed again trial of weaning, and he was never anywhere near ready to be weaned in spite of placing him on Precedex and off propofol, at 1 point the patient became extremely agitated restless and he was biting on the endotracheal tube could not fully awake the patient and determine improvement in his mental status. Hence patient was placed back on propofol yesterday and he remains on propofol today. He is on propofol at 25 mcg/kg/min he is on TPN at 75 cc/h surgery is considering starting his J-tube feedings today. Remains on hemodialysis remains on Merrem remains on Lasix 80 mg IV push twice daily overall not much of a change his chest x-ray is basically about the same showing bibasilar airspace disease. Today I had a discussion with the regarding the option of tracheostomy extremely reluctant to have it done yet. Said that the patient had multiple complications with previous surgeries and she is afraid that he is going to have another complication with the surgeryWBC count is 10.2 hemoglobin is 8, basic metabolic profile is normal sodium 130 BUN 70 creatinine 2.89 Patient was seen today on 12/06/23, remains in the ICU, intubated mechanically ventilated, his ventilator settings are assist-control rate 20 tidal volume 550 FiO2 35% and PEEP of 5 ABG showed a pO2 of 103 pCO2 36 pH of 7.47 patient opens eyes but does not follow any other instructions. He is now off propofol for the last 24 hours, he is maintained on Precedex at 0.4, TPN at 75 cc/h vital AF at 5 mL/h. Patient remains on Merrem, patient did not receive dialysis today because issues related to occluded dialysis catheter. Nonetheless the patient is making urine, and continues to improve with diuretics. Chest x-ray continues to show bibasilar airspace disease, not much of a change number operator the last 1 week.WBC count today is 11.8 hemoglobin is 7.9.Basic metabolic profile is normal BUN is 92 creatinine 3.74. Blood sugar is 226. Family is at bedside, considering his overall mental status at this point, not quite ready to start checking weaning parameters, and is not ready for weaning. Nonetheless I plan to keep him on Precedex, and hopefully avoid narcotics and other sedatives. His mentation starts clearing a bit more, then will start trials of weaning parameters and/or weaning trials Patient was seen today on 12/07/2023, remains in the ICU, intubated and mechanically ventilated, on assist-control rate of 20 tidal volume 550 FiO2 35% PEEP of 5 ABG showed a pO2 of 83 pCO2 33 pH of 7.50 hence the tidal volume was cut down to 500. Patient remains off propofol remains off narcotics is only on Precedex for sedation at 0.6 mg/kg/h. He is on norepinephrine at 0.02 TPN at 75 cc/h IV fluid at KVO vital AF at 10 mL/h is also on Merrem. Neurologically I am concerned about this patient neurological status, does not seem to be waking up much, he opens his eyes but does not follow any instructions and spite of sedation hold for quite some time. Hence I am recommending a CT of the brain and multiple recommending a neurological consultation on this patient. WBC count is 18 7 hemoglobin is 8.4, basic metabolic profile is normal BUN is 75 creatinine 2.95, patient is back on dialysis, he had a new hemodialysis catheter placed yesterday by vascular surgery, and he will be restarted back on hemodialysis. CT of the brain done shortly after evaluating the patient showed no acute intracranial process chest x-ray basically about the same, continues to show small left and moderate right basilar infiltrate. Has not changed much over the last 1 week, patient remains on antibiotics. Patient was seen today on 12/08/2023, remains in the ICU, intubated and mechanically ventilated, remains on assist-control rate of 20 tidal volume 500 FiO2 35% PEEP of 5 ABG showed a pO2 of 88 pCO2 37 pH of 7.47 hence no changes were made in ventilator settings. Chest x-ray is showing slight increase in his right-sided pleural effusion, however his oxygenation seems to be about the same, and the patient is responding to Lasix given at 80 mg IV push every 12 hours, he is also doing well with hemodialysis he had 2 L removed yesterday and 2 L the day before. Hence will not recommend thoracentesis at this point. But the pleural effusion will need to be closely monitored. Patient remains off propofol he is on Precedex at 0.6 mcg/kg/h. For the last 2 days, and his mentation is not much different from baseline. Continues to open his eyes and does not follow any other instructions has the patient is clearly not ready for weaning trials or extubation. Brought up the issue of tracheostomy again with the , she is still reluctant to proceed with tracheostomy on him at this point. Patient remains on Merrem, remains on TPN but his enteral feeding will be advanced today to full goal, and if that happens then we will can discontinue TPN. Patient is receiving vital AF 1.2@10 mL/h at this point.WBC count is 19.3 hemoglobin 7.6. Basic metabolic profile is normal BUN is 72 creatinine 2.99 blood sugar ranging between 250 up to 334. 12/09/23 - patient seen at bedside today, remaining in the ICU, intubated and mechanically ventilated, remaining on assist-control rate of 20, tidal volume 500, FiO2 30%, PEEP of 5 and oxygen saturation of 100%. Patient is on day 27 of his hospital stay (admitted 11/11), day 15 of this current ICU stay (readmit to the ICU 11/24) and day 15 of this current period of time on the ventilator (placed 11/24). ABG showed pO2 100, pCO2 36, pH 7.47. Chest x-ray was deemed to be stable, however possibly with slight improvement noted on the left with a right-sided pleural effusion remains evident however the patient's oxygenation remains to be about the same. Continue to receive 80 mg IV Lasix every 12 hours and is receiving daily hemodialysis, in which he has been having 2 L removed the past couple of days, hemodialysis yet to occur today. His creatinine is 3.57 (compared to 2.99 yesterday) and BUN 98 (compared to 72 yesterday). Due to this response to diuresis and hemodialysis, no thoracentesis recommended at this point however pleural effusion will need to continue to be monitored. Patient shon off propofol, he is on Precedex at 0.4 mcg/kg/h. Due to his mentation remaining near baseline, neurology had been consulted who ordered an EEG which showed diffuse background slowing of his severe degree which is suggestive for generalized cerebral dysfunction and can be seen with toxic metabolic encephalopathy, as well as the presence of sporadic intermittent, some higher amplitude, sharply contoured waves of generalized distribution. Because of this per neurology's recommendation, patient started on Keppra 500 mg twice daily. The patient does seem to be having some improved mentation, with opening his eyes and responding to commands some of this morning. Spontaneous breathing trial to be attempted today, to see if the patient will be able to come off of mechanical ventilation. If that is unable to occur, discussed with the patient as well as his and one of his daughters that a tracheostomy would be the most appropriate next course of action due to the potential dangers of sustained endotracheal intubation for prolonged period of time. The , while reluctant, seem to acknowledge that this is the appropriate course of action. He remains receiving meropenem 1 g nightly. He remains on TPN 75 mL/h, which she has been on since 11/21 (18), but his enteral feeding has been vital 1.2 AF at 10 mL/h with a goal rate of 80 mL/h. Patient drained 60 mg of serosanguineous fluid from his RAYA. His WBCs increased to 21.5 (compared to 19.3 yesterday), hemoglobin dropped to 7.2 (compared to 7.6 yesterday), hematocrit dropped to 22.0 (compared to 22.9 yesterday) and patient procalcitonin remains elevated at 3.07. 12/10/23 - Patient seen at bedside today, remaining in the ICU, intubated and mechanically ventilated, remaining on assist-control rate of 20, tidal volume 500, FiO2 30%, PEEP of 5 and oxygen saturation of 100%. Patient is on day 28 of his hospital stay (admitted 11/11), day 16 of this current ICU stay (readmit to the ICU 11/24) and day 16 of this current period of time on the ventilator (placed 11/24). ABG showed pO2 93, pCO2 37, pH 7.47, showing evidence of a mild metabolic alkalosis. Chest x-ray today showed stable disease compared to yesterday. He received levo overnight due to atypical blood pressure, patient's TPN was up to 120 due to the change in formula. Patient is scheduled to undergo tracheotomy today (12/09) at 16:30. Per the nurse and the overnight staff patient continues to open his eyes and shows some responsiveness to commands. Per nephrology's recommendation dialysis to be held today due to the patient going for the tracheotomy later, as well as the dip in blood pressure seen after yesterday's dialysis session which required Levophed. Patient's Hgb this morning 6.6, will be given 1 unit today, which will be the second unit he has received during his hospital course. Patient's airway resistance noted to be 3.3 cm/L/s, static lung compliance shown to be 45 mL/cm H2O and dynamic compliance 33 mL/cm H2O. 12/11/23 - Patient seen at the bedside, remaining in the ICU, with a tracheotomy tube and mechanically ventilated while receiving dialysis. Patient remains on assist-control rate of 20, FiO2 30%, PEEP of 5 and has an oxygen saturation of 97%. Patient is on day 29 of the hospital stay (admitted 11/11), day 17 of his current ICU stay (readmitted to the ICU 11/24) and day 17 of his current period of time on the ventilator (placed 11/24). ABG today showed pO2 115, pCO2 38, pH 7.44 continuing to show evidence of a mild metabolic alkalosis. Chest x-ray today showed stable disease. Patient had tracheotomy placed yesterday afternoon (12/09) without any complications. Patient has had 3 consecutive days of attempting spontaneous breathing trials in an effort to wean the patient off the ventilator, all of which failed to this point. Beginning today the patient's antibiotics (meropenem) will be discontinued and we will begin weaning his propofol down from 25 mcg/kg/min. As the patient is weaned off of the propofol, 0.5 Dilaudid and 1 mg IV Ativan to be used every 6 hours as needed. Patient is continuing to receive normal saline 20 cc/h, and has a total of 200 mL of serosanguineous fluid from his RAYA drain. TPN to continue at a rate of 120 mL/h additionally tube feeds, which had been held due to the patient receiving straight catheter yesterday, will be restarted today with an ultimate goal being to receive enteral nutrition at a rate of 80 mL/h. TPN to continue until able to increase the enteral nutrition to at least 50 mL/h, as per the dietitian's recommendation. Will be exploring the possibility of the patient being moved to select specialty. 12/12/23 - Patient seen at the bedside this morning, in ICU room 253, while receiving and EEG, no significant events overnight. Patient remains with tracheotomy and is mechanically ventilated on assist control with a rate of 20, tidal volume 500, FiO2 30%, PEEP of 5 with an oxygen saturation of 98%. Patient is on day 30 of the hospital stay (pending 11/11), day 18 of his current ICU stay (readmitted to the ICU 11/24) and day 18 of his current period of time with mechanical ventilation (placed in 11/24). ABG today showed pO2 92, pCO2 36, pH is 7.49 continue to show signs of a combined respiratory and metabolic alkalosis. WBC 17.9, Hgb 7.4, Hct 22.6, PLT 151; sodium 133, potassium 4.0, HCO3 27, BUN 88, creatinine 2.96. Chest x-ray done today continuing to show patchy infiltrate throughout the right lung with layering effusion. Patient is continuing to receive normal saline 20 cc/h, continues to receive Dilaudid 0.5 mg IV push every 6 hours as needed, as well as Ativan 1 mg IV every 6 hours as needed. Patient is no longer maintained on propofol. TPN continues at a rate of 120 mm/h and EN vital AF at 30 mL/h with a goal of 40 mL/h. Once goal is reached, TPN can be discontinued and patient will be switched over to Nepro 50 mL/h. Following the patient having 3 consecutive days of attending spontaneous breathing trials and effort to wean, we will begin trying the patient with CPAP and pressure support in effort to wean, today's trial the patient will be placed on PS 5 and PEEP of 5 for 25-45 minutes, or as he is able to tolerate it. Discussed with the patient's the importance of continuing to wean the patient's with trials, in an effort to build up some of the strength in his lungs to better be able to tolerate breathing on his own. Will continue to evaluate for possible placement in a long-term acute care facility. REVIEW OF SYSTEMS: Could not be assessed , with tracheotomy patient on mec hanical ventilation and sedated. PHYSICAL EXAMINATION: General: Revealed 73-year-old male with tracheotomy, mechanically ventilated, sedated, on propofol 25 mcg/kg/min with the goals of weaning. Supine position 96% O2 saturation, 30% FiO2 and PEEP of 5 Skin: Skin is warm and dry and no rashes or lesions are noted. HEENT: Pupils are round and equally reacting to light. EOMI. No scleral icterus. No conjunctival pallor. Normocephalic, atraumatic. No pharyngeal erythema. No thyromegaly. Cardiovascular: There is a regular rate and rhythm. No murmur, rub or gallop is appreciated. Respiratory: Diminished breath sounds and crackles at the bases no rhonchi no wheezes Gastrointestinal: J-tube is noted RAYA drain is noted NG tube is in place mild abdominal distention, no rebound, no guarding, no bowel sounds, no significant leak noted from the tubes in the abdomen. Musculoskeletal: No deformities and no limitation range of motion Neurological: Patient does not follow any instructions opens eyes and does not follow any instructions; seems to be following some commands this morning, will continue to monitor Extremities: Trace of bipedal edema as well as some edema noted of the upper extremity Assessment and plan # Acute hypoxic respiratory failure requiring intubation mechanical ventilation secondary to aspiration during upper endoscopy most likely secondary to gastric outlet obstruction Continue ventilatory support Continue DuoNeb 3 mL elation 4 times daily, Solu-Medrol 40 mg IV daily Will continue to attempt spontaneous breathing trials as per minutes with the patient, the goal of eventual extubated the patient Tracheotomy scheduled for 12/09; tracheotomy completed without complication Continue trialing the patient with pressure support of 5 and CPAP 5, today's trial will be 30-45 minutes, or as tolerated Trialing will continue to follow for strengthening of the patient's muscles of respiration, and return to her adequate strength and ability to breathe on his own Continuing to evaluate for placement of a long-term acute care facility # Paroxysmal atrial fibrillation - resolved at the moment Normal on telemetry, patient noted to be in A-fib with RVR Patient was started on amiodarone drip Amiodarone discontinued, patient was on Lopressor 12.5 twice daily however also discontinued # CRISTAL secondary to sepsis and septic shock Patient receiving hemodialysis since 11/28 Noted hyperkalemia and dialysis catheter center dialysis completed on 12/05 New dialysis catheter placed 12/06 dialysis was resumed Removed 2 L each of the past couple of days, pending today Patient's kidney function continues to decline, creatinine 3.57 today (compared to 2.99 yesterday) and BUN 98 (compared to 72 yesterday) Continue dialysis, with next treatment being today (12/09); no dialysis today (09/08) due to patient undergoing tracheotomy later today as well as a decrease in blood pressure yesterday during dialysis which required Levophed Dialysis continuing today (12/10) Next hemodialysis session will be tomorrow (12/12) #Cute aspiration at night as secondary to acute aspiration during upper endoscopy most likely secondary to gastric outlet obstruction secondary to non- Hodgkin's lymphoma based on the pathology from stomach biopsies Patient on meropenem 1 g daily, day 11 after starting meropenem Patient had been on IV Zosyn and vancomycin have been discontinued Has received 14 days total of antibiotics, combined Zosyn, vancomycin, ariadne penem # Weight loss secondary to non-Hodgkin's lymphoma Patient had noted 22 pound weight loss for the past 4 months Biopsy-proven high-grade non-Hodgkin's diffuse large B-cell lymphoma Patient had port placement in regards to future treatment, deferring to medical oncology management, who states the left the patient follow-up in the clinic to determine course of treatment Per oncology team, upon review of the pathology there is no lymphoma present instead he was deemed to be ischemic colitis with necrosis; possibly attributing the weight loss to gastric outlet obstruction as opposed to lymphoma # 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 Patient had port placement in regards to future treatment, deferring to medical oncology management, who states the left the patient follow-up in the clinic to determine course of treatment Per oncology team, upon review of the pathology there is no lymphoma presents that he was deemed to have ischemic colitis with necrosis # Anemia Patient's Hgb this morning 6.6; patient receiving 1 unit today Continue to monitor patient's Hgb daily If Hgb drops below 7, transfuse # Acute peritonitis secondary to status post J-tube placement 11/16/2023 # Septic shock secondary to status post J-tube placement 11/16/2023 GI prophylaxis: 40 mg twice daily Nutrition: TPN 120 mL/h, which she has been on since 11/21, but restarting enteral feeding with 1.2 vital AF currently at 30 mL/h with goal being 40 mL/h. Upon reaching that goal, TPN can be discontinued and the patient will be switched to Nepro 50 mL Continue to monitor vital signs, monitor CBC, monitor CMP Continue telemetry monitoring. Continue with symptomatic treatment Resume home medication Further condition as per the clinical course of the patient Dictation was produced using [id number] dictation software. please excuse any grammatical, word or spelling errors. Objective - Vital Signs Vital signs: Vital Signs Temp 98.1 F 12/12/23 04:00 Pulse 93 12/12/23 08:38 Resp 29 H 12/12/23 07:00 BP 113/68 12/12/23 07:00 Pulse Ox 98 12/12/23 07:00 FiO2 30 12/12/23 08:27 Intake & Output 12/11/23 12/12/23 12/12/23 18:59 06:59 18:59 Intake Total 3167.060 3373.860 Output Total 3605 1595 Balance -744.256 6300.860 Weight 104.6 kg 105.2 kg Intake: IV 1356 1859 0.9 KVO 240 260 Normal Saline Pressure 36 39 Saline TPN 1080 1560 Intake, IV Titration 3012.339 0727.860 Amount Norepinephrine 8 mg In 1.910 Sodium Chloride 0.9% 250 ml @ 0.03 MCG/KG/MIN 6. 368 mls/hr IV .Q24H [facility] Rx#:[id number] Sodium Acetate 68 meq 1081.5 1081.5 Sodium Chloride 4Meq/ml Vial 68 meq Potassium Chloride 14 meq Calcium Gluconate 2.25 gm Magnesium Sulfate gm 0.5 gm In Amino Acid 5%-D15w 1,000 ml @ 120 mls/hr IV .BY DURATION [facility] Rx#: [id number] propofoL 1,000 mg In 99.560 101.450 Empty Bag 1 bag @ 15 MCG/ KG/MIN 9.324 mls/hr IV . [id number] [facility] Rx#:[id number] Tube Feeding 140 330 Hemodialysis 400 Other 90 Output: Gastric Drainage 175 Drainage 180 70 Right Abdomen 180 70 Urine 1025 1350 Hemodialysis 1400 Hemodialysis Net Amount 1000 Other: Voiding Method Indwelling Catheter Indwelling Catheter ABP, PAP, CO, CI - Last Documented Arterial Blood Pressure 116/50 - Labs CBC & Chem 7: 12/12/23 04:44 12/12/23 04:44 Labs: Abnormal Lab Results - Last 24 Hours (Table) 12/11/23 12/11/23 12/11/23 Range/Units 05:35 11:43 17:38 WBC (3.8-10.6) k/uL RBC (4.30-5.90) m/uL Hgb (13.0-17.5) gm/dL Hct (39.0-53.0) % RDW (11.5-15.5) % Neutrophils # (1.3-7.7) k/uL Lymphocytes # (1.0-4.8) k/uL ABG pH (7.35-7.45) ABG HCO3 (21-25) mmol/L ABG Total CO2 (19-24) mmol/L ABG O2 Saturation (94-97) % Hemoglobin (13.0-17.5) gm/dL Sodium (137-145) mmol/L BUN (9-20) mg/dL Creatinine (0.66-1.25) mg/dL Glucose (74-99) mg/dL POC Glucose (mg/dL) 142 H 208 H (70-110) mg/dL Calcium (8.4-10.2) mg/dL Phosphorus 4.7 H (2.5-4.5) mg/dL 12/11/23 12/12/23 12/12/23 Range/Units 23:17 04:44 04:44 WBC 17.9 H (3.8-10.6) k/uL RBC 2.62 L (4.30-5.90) m/uL Hgb 7.4 L (13.0-17.5) gm/dL Hct 22.6 L (39.0-53.0) % RDW 19.5 H (11.5-15.5) % Neutrophils # 16.4 H (1.3-7.7) k/uL Lymphocytes # 0.9 L (1.0-4.8) k/uL ABG pH (7.35-7.45) ABG HCO3 (21-25) mmol/L ABG Total CO2 (19-24) mmol/L ABG O2 Saturation (94-97) % Hemoglobin (13.0-17.5) gm/dL Sodium 133 L (137-145) mmol/L BUN 88 H (9-20) mg/dL Creatinine 2.96 H (0.66-1.25) mg/dL Glucose 314 H (74-99) mg/dL POC Glucose (mg/dL) 294 H (70-110) mg/dL Calcium 7.5 L (8.4-10.2) mg/dL Phosphorus (2.5-4.5) mg/dL 12/12/23 12/12/23 Range/Units 05:21 05:28 WBC (3.8-10.6) k/uL RBC (4.30-5.90) m/uL Hgb (13.0-17.5) gm/dL Hct (39.0-53.0) % RDW (11.5-15.5) % Neutrophils # (1.3-7.7) k/uL Lymphocytes # (1.0-4.8) k/uL ABG pH 7.49 H (7.35-7.45) ABG HCO3 27 H (21-25) mmol/L ABG Total CO2 29 H (19-24) mmol/L ABG O2 Saturation 98.1 H (94-97) % Hemoglobin 7.5 L (13.0-17.5) gm/dL Sodium (137-145) mmol/L BUN (9-20) mg/dL Creatinine (0.66-1.25) mg/dL Glucose (74-99) mg/dL POC Glucose (mg/dL) 338 H (70-110) mg/dL Calcium (8.4-10.2) mg/dL Phosphorus (2.5-4.5) mg/dL
--- NOTE | 2023-12-12 12:21 | P.PN ---
Subjective Progress Note Date: 12/12/23 CHIEF COMPLAINT: Abdominal pain HISTORY OF PRESENT ILLNESS: Patient remains in the ICU on mechanical vent ilation. He is status post tracheostomy placement. Tube feeds are currently at 30 mL/h. Patient is tolerating tube feeds. He tube feed goal is at 40. They are weaning off the TPN today. Last bowel movement was on 12/09. NG tube output 175 mL. Patient is a little more awake. He is off the propofol. He did have a low-grade temp of 100.4 this morning. WBC is down from 21-17 Hgb 7.4 platelets 151 creatinine 2.96. Patient undergoing spontaneous breathing trials PHYSICAL EXAM: VITAL SIGNS: Reviewed. GENERAL: no acute distress. HEENT: Tracheostomy site clean dry and intact ABDOMEN: Soft. Midline incision with serous drainage. J-tube in place. RAYA drain output more serous in color ASSESSMENT: 1. 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 Status post J-tube placement and revision for small bowel obstruction PLAN: -Discontinue NG tube -Keep patient strict n.p.o. -Continue to titrate tube feeds per dietitian -Continue ICU management -Continue supportive care Physician Foam Molder note has been reviewed by physician. Signing provider agrees with the documented findings, assessment, and plan of care. Objective - Vital Signs Vital signs: Vital Signs Temp 100.4 F H 12/12/23 09:00 Pulse 99 12/12/23 11:44 Resp 12 12/12/23 11:00 BP 126/67 12/12/23 11:00 Pulse Ox 98 12/12/23 11:00 FiO2 30 12/12/23 11:50 Intake & Output 12/11/23 12/12/23 12/12/23 18:59 06:59 18:59 Intake Total 3167.060 3373.860 702 Output Total 3605 1595 885 Balance -734.162 6603.860 -183 Weight 104.6 kg 105.2 kg 105.2 kg Intake: IV 1356 1859 572 0.9 KVO 240 260 80 Normal Saline Pressure 36 39 12 Saline TPN 1080 1560 480 Intake, IV Titration 6477.661 4124.860 Amount Norepinephrine 8 mg In 1.910 Sodium Chloride 0.9% 250 ml @ 0.03 MCG/KG/MIN 6. 368 mls/hr IV .Q24H [facility] Rx#:[id number] Sodium Acetate 68 meq 1081.5 1081.5 Sodium Chloride 4Meq/ml Vial 68 meq Potassium Chloride 14 meq Calcium Gluconate 2.25 gm Magnesium Sulfate gm 0.5 gm In Amino Acid 5%-D15w 1,000 ml @ 120 mls/hr IV .BY DURATION [facility] Rx#: [id number] propofoL 1,000 mg In 99.560 101.450 Empty Bag 1 bag @ 15 MCG/ KG/MIN 9.324 mls/hr IV . [id number] [facility] Rx#:[id number] Tube Feeding 140 330 130 Hemodialysis 400 Other 90 Output: Gastric Drainage 175 Drainage 180 70 200 Right Abdomen 180 70 200 Urine 1025 1350 685 Hemodialysis 1400 Hemodialysis Net Amount 1000 Other: Voiding Method Indwelling Catheter Indwelling Catheter Indwelling Catheter ABP, PAP, CO, CI - Last Documented Arterial Blood Pressure 157/62 - Labs CBC & Chem 7: 12/12/23 04:44 12/12/23 04:44 Labs: Abnormal Lab Results - Last 24 Hours (Table) 12/11/23 12/11/23 12/12/23 Range/Units 17:38 23:17 04:44 WBC (3.8-10.6) k/uL RBC (4.30-5.90) m/uL Hgb (13.0-17.5) gm/dL Hct (39.0-53.0) % RDW (11.5-15.5) % Neutrophils # (1.3-7.7) k/uL Lymphocytes # (1.0-4.8) k/uL ABG pH (7.35-7.45) ABG HCO3 (21-25) mmol/L ABG Total CO2 (19-24) mmol/L ABG O2 Saturation (94-97) % Hemoglobin (13.0-17.5) gm/dL Sodium 133 L (137-145) mmol/L BUN 88 H (9-20) mg/dL Creatinine 2.96 H (0.66-1.25) mg/dL Glucose 314 H (74-99) mg/dL POC Glucose (mg/dL) 208 H 294 H (70-110) mg/dL Calcium 7.5 L (8.4-10.2) mg/dL 10/12/2512/12/23 12/12/23 Range/Units 04:44 05:21 05:28 WBC 17.9 H (3.8-10.6) k/uL RBC 2.62 L (4.30-5.90) m/uL Hgb 7.4 L (13.0-17.5) gm/dL Hct 22.6 L (39.0-53.0) % RDW 19.5 H (11.5-15.5) % Neutrophils # 16.4 H (1.3-7.7) k/uL Lymphocytes # 0.9 L (1.0-4.8) k/uL ABG pH 7.49 H (7.35-7.45) ABG HCO3 27 H (21-25) mmol/L ABG Total CO2 29 H (19-24) mmol/L ABG O2 Saturation 98.1 H (94-97) % Hemoglobin 7.5 L (13.0-17.5) gm/dL Sodium (137-145) mmol/L BUN (9-20) mg/dL Creatinine (0.66-1.25) mg/dL Glucose (74-99) mg/dL POC Glucose (mg/dL) 338 H (70-110) mg/dL Calcium (8.4-10.2) mg/dL
[2023-12-12 12:24] LABS: Glucose,Whole Blood 256 mg/dL (70-110)
--- NOTE | 2023-12-12 15:37 | P.PN ---
Subjective Progress Note Date: 12/12/23 I am following up with the patient and he is accompanied with his and his daughter. According to the family members they stated that the patient to is improving slowly but they are seeing progress. They stated that the patient was opening his eyes and he moved the right upper extremity spontaneously. He has been off sedation since yesterday morning. The NG tube has been discontinued. Seems the patient just recently was given Dilaudid. Objective - Vital Signs Vital signs: Vital Signs Temp 100.8 F H 12/12/23 12:00 Pulse 101 H 12/12/23 15:29 Resp 26 H 12/12/23 15:00 BP 108/66 12/12/23 15:00 Pulse Ox 97 12/12/23 15:00 FiO2 30 12/12/23 15:30 Intake & Output 12/11/23 12/12/23 12/12/23 18:59 06:59 18:59 Intake Total 3167.060 3373.860 1224 Output Total 3605 1595 1420 Balance -883.746 1841.860 -196 Weight 104.6 kg 105.2 kg 105.2 kg Intake: IV 1356 1859 904 0.9 KVO 240 260 160 Normal Saline Pressure 36 39 24 Saline TPN 1080 1560 720 Intake, IV Titration 6069.960 5377.860 Amount Norepinephrine 8 mg In 1.910 Sodium Chloride 0.9% 250 ml @ 0.03 MCG/KG/MIN 6. 368 mls/hr IV .Q24H [facility] Rx#:[id number] Sodium Acetate 68 meq 1081.5 1081.5 Sodium Chloride 4Meq/ml Vial 68 meq Potassium Chloride 14 meq Calcium Gluconate 2.25 gm Magnesium Sulfate gm 0.5 gm In Amino Acid 5%-D15w 1,000 ml @ 120 mls/hr IV .BY DURATION [facility] Rx#: [id number] propofoL 1,000 mg In 99.560 101.450 Empty Bag 1 bag @ 15 MCG/ KG/MIN 9.324 mls/hr IV . [id number] [facility] Rx#:[id number] Tube Feeding 140 330 290 Hemodialysis 400 Other 90 30 Output: Gastric Drainage 175 Drainage 180 70 280 Right Abdomen 180 70 280 Urine 1025 1350 1140 Hemodialysis 1400 Hemodialysis Net Amount 1000 Other: Voiding Method Indwelling Catheter Indwelling Catheter Indwelling Catheter ABP, PAP, CO, CI - Last Documented Arterial Blood Pressure 145/57 - Exam General: Lying in bed and does not appear in acute distress. Lung: Trach on ventilator. Neuro: Very limited. Was given Dilaudid recently. Severely encephalopathic. Not opening his eyes, following commands or attemptin g to talk. - Labs CBC & Chem 7: 12/12/23 04:44 12/12/23 04:44 Labs: Abnormal Lab Results - Last 24 Hours (Table) 12/11/23 12/11/23 12/12/23 Range/Units 17:38 23:17 04:44 WBC (3.8-10.6) k/uL RBC (4.30-5.90) m/uL Hgb (13.0-17.5) gm/dL Hct (39.0-53.0) % RDW (11.5-15.5) % Neutrophils # (1.3-7.7) k/uL Lymphocytes # (1.0-4.8) k/uL ABG pH (7.35-7.45) ABG HCO3 (21-25) mmol/L ABG Total CO2 (19-24) mmol/L ABG O2 Saturation (94-97) % Hemoglobin (13.0-17.5) gm/dL Sodium 133 L (137-145) mmol/L BUN 88 H (9-20) mg/dL Creatinine 2.96 H (0.66-1.25) mg/dL Glucose 314 H (74-99) mg/dL POC Glucose (mg/dL) 208 H 294 H (70-110) mg/dL Calcium 7.5 L (8.4-10.2) mg/dL 12/12/23 12/12/23 12/12/23 Range/Units 04:44 05:21 05:28 WBC 17.9 H (3.8-10.6) k/uL RBC 2.62 L (4.30-5.90) m/uL Hgb 7.4 L (13.0-17.5) gm/dL Hct 22.6 L (39.0-53.0) % RDW 19.5 H (11.5-15.5) % Neutrophils # 16.4 H (1.3-7.7) k/uL Lymphocytes # 0.9 L (1.0-4.8) k/uL ABG pH 7.49 H (7.35-7.45) ABG HCO3 27 H (21-25) mmol/L ABG Total CO2 29 H (19-24) mmol/L ABG O2 Saturation 98.1 H (94-97) % Hemoglobin 7.5 L (13.0-17.5) gm/dL Sodium (137-145) mmol/L BUN (9-20) mg/dL Creatinine (0.66-1.25) mg/dL Glucose (74-99) mg/dL POC Glucose (mg/dL) 338 H (70-110) mg/dL Calcium (8.4-10.2) mg/dL 12/12/23 Range/Units 12:22 WBC (3.8-10.6) k/uL RBC (4.30-5.90) m/uL Hgb (13.0-17.5) gm/dL Hct (39.0-53.0) % RDW (11.5-15.5) % Neutrophils # (1.3-7.7) k/uL Lymphocytes # (1.0-4.8) k/uL ABG pH (7.35-7.45) ABG HCO3 (21-25) mmol/L ABG Total CO2 (19-24) mmol/L ABG O2 Saturation (94-97) % Hemoglobin (13.0-17.5) gm/dL Sodium (137-145) mmol/L BUN (9-20) mg/dL Creatinine (0.66-1.25) mg/dL Glucose (74-99) mg/dL POC Glucose (mg/dL) 256 H (70-110) mg/dL Calcium (8.4-10.2) mg/dL Assessment and Plan Assessment: * Altered mental status, likely due to toxic metabolic encephalopathy, severe--p er family members he is slowly improving. * Abnormal EEG. * Aspiration pneumonitis from retained gastric contents * Ventilator dependent respiratory failure s/p Trach on 12/10/2023 * Pulmonary edema * History of small bowel perforation at the site of jejunostomy tube tip with balloon * Acute kidney injury * Acute recurrent atrial fibrillation * Septic shock, recovered Sputum culture is positive for Pseudomonas aeruginosa and Citrobacter freundii * Hypertension * Anemia * Thrombocytopenia, improving Plan: * Stat EEG was performed on 12/08/[address] Hernández: It revealed generalized slowing of severe degree. This is suggestive of generalized cerebral dysfunction as can be seen with toxic metabolic encephalopathy or related to diffuse structural brain about a day. Clinical correlation is recommended. Sporadic, periodic generalized sharp-appearing waves were seen. This may suggest underlying cortical irritability. No electrographic seizure was recorded. * Therefore, Dr. Hernández, empirically started on Keppra 500 mg daily. * Repeat EEG today. * CT head performed 12/07/2023 revealed no acute intracranial process. Some atrophy. I personally reviewed CT head agree with the findings. * Patient is generalized weak. Patient has been ICU for extended period of time. At risk for critical illness myopathy. * Recommend I.D. consultation since has worsening of leukocytosis. * For medical management as per critical care and other specialties on board. The plan is discussed with his and daughter. Time with Patient: Less than 30
--- NOTE | 2023-12-12 16:23 | P.PN ---
Progress Note - Text Progress Note Date: 12/12/23 Chief Complaint: Aspirated This is a 73-year-old patient, follows with Dr. Patricia Deal. Patient was seen this morning in the ICU. Patient's and daughter at the bedside. History obtained predominantly by the . Patient been having trouble with his stomach symptoms for close to 8 months. Patient underwent EGD by Dr. Sahara Cheng yesterday. Patient was found to have ulcerated around the antrum and obstruction to the pylorus. A lot of retained food was found. Patient aspirated. Had to be intubated and brought to the ICU. On a Levophed drip. FiO2 50 and a PEEP of 6. Patient had been losing weight lost about 25 pounds. Previously has a history of mitral valve prolapse. November 13: ICU. Patient remains on Precedex drip and propofol drip. Did not do well attempted extubation yesterday. Patient been off Levophed. NG tube to suction. Spoke to patient's and son at the bedside. Biopsy results awaited. Hemoglobin dropped to 6.9 this morning. Get a unit of blood. November 14: ICU. Up in a chair. Extubated yesterday. NG tube to suction. at the bedside. 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 Oncology was consulted. They have ordered a port. Results discussed with Dr. Sahara Cheng. General surgery was consulted for J-tube placement. Discussed with at the bedside. Patient getting IV fluids, IV Zosyn,. Patient has been on IV amiodarone for A-fib-back in sinus rhythm. Multiple PACs. Did receive unit of blood yesterday. Also IV ferric gluconate. November 15: ICU. Patient earlier today underwent jejunostomy tube placement and a port placement. Patient awake. Answering questions. NG tube to suction present. Updated patient's . Patient remains on IV amiodarone and IV Zosyn. November 16: ICU. Up in the chair. NG tube present but not to suction. Trickle feeding through the jejunostomy tube should be started today. Dietitian has been on board. IV Zosyn to continue. Patient's and his sister at the bedside. Discussed. Also spoke with Dr. Serna. Given patient has no other predisposing cardiac factors for the A-fib except acute illness. His LV function is normal. Left atrium is normal. He has already been loaded with IV amiodarone. Will switch him to oral Lopressor 12.5 twice daily. Hence will DC amiodarone. Patient yesterday had wheezing was put on bronchodilators steroids per pulmonary. November 17: Propped up in bed. NG tube was discontinued. Sinus rhythm. Remains NPO. Getting G-tube feeding at 40 cc an hour. Dietitian following. Get arrangements done for DC home tomorrow including tube feeding. Increase activity discussed with patient and elder daughter at the bedside. Still requiring oxygen. Incentive spirometry. November 18: Patient up in recliner. Earlier today spoke to social media editor David. Informed patient is rather weak and will be going to the [facility]. Looking at authorization. Denae came to the room and spoke to patient his and his daughter. They are very keen to take the patient home as 3 daughters all nurses and they will take care of him at home. Patient earlier today to abdominal cramping and some loose stools.'s tube feeding was held. Told the nurse to start back at the rate of 40 cc an hour. He was before the getting it at 55 cc an hour. Incentive spirometry was again emphasized. Patient remains on 4 L of oxygen. November 19: I saw the patient this morning. Hence I am in the evening. Morning was sitting with his sons. Has some edema. Lungs had crackles I gave him 40 mg of Lasix. He did make good urine. Tube feeding was held from the previous evening of because of abdominal cramping. Acute abdominal series showed nonspecific bowel gas pattern and SBO to be ruled out. Family and patient was updated. Told him discharge will depend on day by day. Later this afternoon CT scanAnd abdomen pelvis done. Showed small bowel to be 3 point centimeter dilated. Some anasarca. Gastric findings. Gallstones. Later spoke to Dr. Irby from general surgery. They will further review and decide about further plan of action. Will give further dose of IV Lasix because of fluid overload from likely hypoalbuminemia and IV fluids previously received. Patient may take his pills by mouth. Total time spent today about 1 hour with over 40 minutes of discussion. Patient did state his breathing is better after Lasix this morning. November 20: Saw the patient this morning. was present. Patient received 2 more doses of Lasix. Diuresed well. Breathing much better. Lungs are sounding better. Discussed with Dr. Zepeda other surgeon. He is taking 3 cc out of the balloon and the gastrostomy tube. Started trickle feeding at 5 cc an hour. Will see how this does. Later in the day ran into the and the daughter again. Did update them on the same. Dilaudid was discontinued yesterday but morphine was ordered by surgery for patient having pain. Concerns about GI issues with that we will DC the morphine. As family does not want the same. November 21: Patient reclining bed. Tired. Several family members at the bedside. Including his and eldest daughter. Patient started on trickle feed yesterday at 5 cc an hour. This morning he has been on 10 cc an hour. Still having some loose stools. C. difficile was ordered. Patient on 2 L of nasal cannula. Has diuresed well. Will give an additional dose of Lasix today. If C. difficile is negative and the diarrhea is from the tube feedings we may have to use a fecal management system to keep him comfortable. Otherwise patient remains NPO. Dietitian is following the patient. Care was discussed length with patient the and daughter at the bedside. Questions answered. Liquid Tylenol has been added for abdominal pain. Avoid narcotics. Elevated white count likely from Solu-Medrol 11/23/2023--patient was feeling better today. Multiple family member at bedside. No issues overnight. Normal saline at 10 cc an hour, tube feeding at 20 cc an hour, remains on Zosyn, on 3 L oxygen. Afebrile. Heart rate 62, respiratory rate 16, blood pressure 114/67, saturating 91% on 3 L. WBCs 14.5, 9.7 hemoglobin. Platelet 242. BMP is unremarkable. Pulmonary and general surgery following. General surgery recommended to continue tube feeds at 20 cc/h. 11/24/2023--patient reported significant abdominal discomfort, also noted to have leak around G-tube. General surgery is following, evaluated the patient at bedside, adjusted tube feeds. Also reported having diarrhea, on 2 L oxygen, went up to 5 L. Blood pressure was low, 500 mL fluid bolus with close monitoring of respiratory status ordered. Currently on DuoNebs, Solu-Medrol, will continue Zosyn. Chest x-ray showed a left lower lobe infiltrate. Abdominal x-ray showed multiple air-fluid levels. CT abdomen showed multiple dilated small bowel loops, consistent with obstruction, pneumoperitoneum, cholelithiasis and ascites. WBCs 14.1, platelet 255, hemoglobin 8.9. NG tube in place. Family at bedside. patient transferred to SICU for close monitoring. 11/25/23--patient is currently in the ICU, required Levophed overnight due to low blood pressure, low urine output with creatinine trending up. Nephrology following. Babysitter also following. Patient remains n.p.o., NG tube in place, following NG tube insertion patient had total of 2 L output, J-tube was draining approximately 200 cc over last 8 hours, continues to have abdominal pain and abdominal tenderness. Patient on IV fluids. Currently on 4 L oxygen. WBCs 8.2, hemoglobin 12.3, platelet 188. Chest x-ray earlier today showed right sided port and a stable left lung airspace disease, NG tube in place. Patient currently on Zosyn, on IV Dilaudid for pain control, on IV Solu-Medrol. General surgery planning for OR today, started on TPN. 11/26/23--patient was seen and examined today. Patient is currently sedated, intubated on mechanical ventilation. Family at bedside. Patient underwent ex lap, abdominal washout, small bowel resection with new feeding jejunostomy tube placement yesterday, small bowel was noted to be perforated with significant contamination of abdominal cavity. Patient is currently on vancomycin and Zosyn. Creatinine went up to 2.85, nephrology following, recommended to continue IV fluids, avoid nephrotoxin Preserved EF on echocardiogram.. Patient currently on Levophed, vasopressin in the ICU for close monitoring. Patient is afebrile, heart rate 122, blood pressure 129/76, currently on mechanical ventilation, sedated. November 26: ICU. Intubated. FiO2 60 and a PEEP of 5. Drips include IV amiodarone. Heart rate was up early did get fired microgram of IV digoxin and 2.5 mg of IV Lopressor. Did drop her blood pressure bit. Urine output was low. Received 80 mg of IV Lasix. Ahmet to 150 cc. Other drips include IV propofol, vasopressin, Levophed. TPN was started yesterday. Antibiotics include IV Zosyn and vancomycin. Patient has a J-tube to drainage to gravity. Spoke to patient's younger daughter and at the bedside. Prognosis guarded. Continue current treatment plan. Chest x-ray shows right lower lobe consolidation. Small pleural effusion. November 27: ICU. Intubated. FiO2 55 and a PEEP of 5. Antibiotics include IV vancomycin. Drips include Levophed at a small dose, IV vasopressin, propofol, amiodarone. Patient converted to sinus rhythm this morning. Getting TPN and normal saline at 75 cc an hour. Urine output about 25 cc an hour. RAYA drain put out about 260 cc last 12 hours that is last night coordinator. NG tube with bilious output. And also GI J-tube output to gravity. Spoke to patient's and daughter at the bedside. They understand patient still not out of the kee. Platelets have dropped-therefore probably Zosyn stopped. November 28: ICU. Intubated. FiO2 55 and a PEEP of 5. Patient is in sinus rhythm. Seen this morning. Due for dialysis catheter this afternoon. Urine output about 15 to 20 cc an hour. Patient is on IV Lasix 80 mg every 12. Saline is KVO. Drips include IV propofol vasopressin. Patient having significant output through the RAYA drain and the jejunostomy tube to drainage. Creatinine had been getting worse. Patient's at the bedside. Understands patient's remains critically ill. Hemoglobin is down to 7. Given that patient's pain hypotensive, and on vasopressin we will give a unit of blood with dialysis. Getting TPN antibiotic changed to IV meropenem November 29: ICU. Intubated. FiO2 55 and a PEEP of 5. Remains in sinus rhythm. Getting TPN. Dialyzed yesterday and this morning. About 1000 cc removed. Urine output about 50 cc an hour. Patient is on IV propofol. Off vasopressin. Still having significant output through the RAYA drain and jejunostomy tube. Patient received a second unit of blood yesterday. Patient's and daughter at the bedside. I did discuss guarded prognosis. Did asked them to revisit CODE STATUS.. Getting IV meropenem. November 30: ICU. Intubated. Did get a sedation holiday t today. Back on propofol. Getting TPN. Still getting IV Lasix. Fair urine output. Jejunostomy tube in last 8 hours was about 30 cc output. RAYA drain in the 8 hours had about 180 cc output. Telemetry shows sinus rhythm. NG tube has low intermittent suction with negative output. On the vent with FiO2 40 and a PEEP of 5. No hemodialysis today. Discussed with the and eldest daughter at the bedside. IV meropenem-patient's sputum had grown Citrobacter freundii and Pseudomonas aeruginosa. December 01: ICU. Intubated. Jejunostomy tube to gravity. Only 10 cc output in last 24 hours. RAYA drain. About 190 cc last 6 hours. Nasogastric tube to low intermittent suction. Minimal output. Patient is on a small dose of propofol 5 mics. Telemetry shows sinus rhythm. Patient started on small dose of Cleviprex this morning. Blood pressure. Getting TPN. FiO2 35 and PEEP of 5. Discussed with the at the bedside. Hemodialysis today December 02: ICU. Patient remains intubated. FiO2 35 PEEP of 5. Patient is on IV propofol. IV Cleviprex was discontinued yesterday. Also remains on TPN. Telemetry shows sinus rhythm. NG tube is good no output. Still significant output through the RAYA drain. Jejunostomy tube has minimal output. Patient had hemodialysis today 2 L of fluid was removed. Oral half liters yesterday. Patient getting a sedation holiday. General Surgery started the patient on trickle feeding at 10 cc an hour. I did speak to patient's at the bedside. Prognosis remains guarded but there is some improvement. December 03: ICU. Intubated. FiO2 35 PEEP of 5. Drips include IV propofol and Precedex. Getting TPN. Telemetry shows sinus rhythm. Remains on IV Lasix 80 mg twice a day. IV meropenem. Because patient gets easily agitated when transitioning off propofol he has been switched over to Precedex. For hemodialysis today. December 04: ICU. Intubated. FiO2 35 and a PEEP of 5. Patient been taken off propofol is on Precedex. Telemetry sinus rhythm. J-tube with minimal output. RAYA drain with decreased output. NG tube to suction minimal output. Family wanted to hold off trickle feeding until cleared by oncology. Which he did today. Trickle feeding will be started today. Spoke to patient's and one of the daughters at the bedside. Dr. Russ is spoken to the earlier this point they want to do further tracheostomy tube. December 05: ICU. Intubated. FiO2 35 PEEP of 5. Patient remains on Precedex and PPN. Patient's dialysis catheter was not functioning is getting another [address] Bobby this afternoon. Remains on IV meropenem. Has a RAYA drain in the jejunostomy tube to gravity. NG tube to low intermittent suction. No family at the bedside. December 06: ICU. Intubated. FiO2 35 PEEP of 5. RAYA drain putting out about approximately 120 cc per shift. Patient on IV Precedex. FiO2 35 PEEP of 5. Telemetry-sinus rhythm. Patient occasionally been put on small dose of Levophed specially for hemodialysis getting it today. Also started on midodrine for low blood pressure. Tolerating tube feeding at 10 cc an hour. Also had a bowel movement. Mentation has not improved. Even with sedation holiday. Neurology consulted. CT brain shows no acute process. December 07: ICU. Intubated. FiO2 35 PEEP of 5. Telemetry-sinus rhythm. NG tube to suction low intermittent minimal output. Getting TPN. Tube feeding at 20 cc an hour. RAYA drain averaging over 100 cc per shift. Remains on Precedex. EEG was done today. Discussed with at the bedside. Family is currently not inclined for tracheostomy tube today. Day 13 of being intubated December 08: ICU. Intubated. FiO2 35 PEEP of 5. Patient is put on back on propofol per cast shell grinder Dr. BINGHAM. EEG did show some potential for spikes was put on Keppra by neurology. Telemetry shows sinus rhythm. NG tube to suction with no output. Tube feeding was put on hold because of questionable discharge on the site. Being restarted today. RAYA drain is 150 cc last 12-hour shift. Patient does open eyes. Family has decided to proceed with tracheostomy and surgery has been consulted for the same. Spoke to the at the bedside. For hemodialysis today. December 09: ICU. Intubated FiO2 35 PEEP of 5. Patient seen this morning. Pending tracheostomy placement this afternoon. Remains NPO. G-tube feeding was held overnight. RAYA drain putting out about 100 cc per shift. Received a unit of blood for hemoglobin of 6.6. On 25 mics of propofol. Getting TPN and meropenem. Spoke to the at the bedside. Patient became hypotensive with dialysis yesterday. Levophed had to be given. Only 800 cc were removed yesterday. No hemodialysis today. December 10: ICU . FiO2 35, PEEP 5. Tracheostomy was done yesterday by Dr. Ewing. G-tube feeding was started today at 10 cc an hour. Dietitian following. RAYA drain 12-hour shift overnight put out about 30 cc. Patient hemodialysis to day about 1 L removed. Patient has a sacral stage II decub with a dressing. On propofol 20 mics. Spoke to at the bedside. TPN. Meropenem was discontinued yesterday. December 11: ICU. FiO2 35 PEEP of 5. Tracheostomy. NG tube was discontinued. No hemodialysis today. Telemetry shows sinus rhythm. J-tube feeding at 40 cc an hour. TPN was discontinued. Patient has been off propofol also. PICC line in place. Patient had a EEG done today. Spoke to patient's elder daughter at the bedside. May open eyes occasionally. Not really following commands Active Medications Acetaminophen (Acetaminophen Tab 325 Mg Tab) 650 mg PO Q4HR PRN PRN Reason: Fever and/ or Pain Last Admin: 12/09/23 20:09 Dose: 650 mg Acetaminophen (Acetaminophen Oral Susp (Peds) 3,840 Mg/120 Ml Bottle) 480 mg PO Q4HR PRN PRN Reason: Fever Albuterol/Ipratropium (Ipratropium-Albuterol 3 Ml Neb) 3 ml INHALATION RT-QID [facility] Last Admin: 12/12/23 15:29 Dose: 3 ml Albuterol/Ipratropium (Ipratropium-Albuterol 3 Ml Neb) 3 ml INHALATION RT-Q2H PRN PRN Reason: Shortness Of Breath Or Wheezing Last Admin: 12/03/23 03:45 Dose: 3 ml Chlorhexidine Gluconate (Chlorhexidine Gluconate 15 Ml Cup) 15 ml MUCOUS MEM BID [facility] Last Admin: 12/12/23 09:37 Dose: 15 ml Darbepoetin Scooby (Darbepoetin Scooby 40 Mcg/0.4 Ml Syringe) 40 mcg SQ Q7D [facility] Last Admin: 12/10/23 09:27 Dose: 40 mcg Dextrose/Water (Dextrose 50% Syringe 50 Ml) 25 ml IVP PER PROTOCOL PRN; Protocol PRN Reason: Hypoglycemia Dextrose/Water (Dextrose 50% Syringe 50 Ml) 50 ml IVP PER PROTOCOL PRN; Protocol PRN Reason: Hypoglycemia Furosemide (Furosemide 10 Mg/Ml 10 Ml Vial) 80 mg IV Q12H [facility] Last Admin: 12/12/23 05:35 Dose: 80 mg Hydromorphone HCl (Hydromorphone 0.5 Mg/0.5 Ml Syringe) 0.5 mg IVP Q6HR PRN PRN Reason: Pain Last Admin: 12/12/23 12:32 Dose: 0.5 mg Sodium Chloride (Saline 0.9%) 1,000 mls @ 20 mls/hr IV .Q24H [facility] Last Admin: 12/11/23 17:43 Dose: 20 mls/hr Norepinephrine Bitartrate 8 mg (/ Sodium Chloride) 258 mls @ 6.368 mls/hr IV .Q24H [facility]; Protocol Last Titration: 12/11/23 22:40 Dose: 0 mcg/kg/min, 0 mls/hr Propofol 1,000 mg/ IV Solution 100 mls @ 9.324 mls/hr IV .Q65M43H [facility]; Protocol Last Titration: 12/11/23 23:28 Dose: 0 mcg/kg/min, 0 mls/hr Parenteral Vitamin Supplement 10 ml/ Zinc/Copper/Manganese/Selenium 1 ml/ Sodium Acetate 68 meq/ Sodium Chloride 80 meq / Potassium Chloride 14 meq/Calcium Gluconate 2.25 gm/Magnesium Sulfate 0.5 gm/Amino Acids/Dextrose 1,095.5 mls @ 120 mls/hr IV .BY DURATION [facility] Sodium Acetate 68 meq/ Sodium Chloride 80 meq/ Potassium Chloride 14 meq/ Calcium Gluconate 2.25 gm/ Magnesium Sulfate 0.5 gm/ Amino Acids/Dextrose 1,084.5 mls @ 120 mls/hr IV .BY DURATION [facility] Insulin Aspart (Insulin Aspart (Novolog) 100 Unit/Ml Vial) 0 unit SQ 0000,0600,1200,1800 [facility]; Protocol Last Admin: 12/12/23 12:30 Dose: 6 unit Insulin Detemir (Insulin Detemir (Levemir) 100 Unit/Ml Syr) 24 unit SQ DAILY@0700 [facility] Last Admin: 12/12/23 06:20 Dose: 24 unit Levetiracetam (Levetiracetam Iv 500 Mg/5 Ml Vial) 500 mg IVP Q24HR [facility] Last Admin: 12/12/23 09:37 Dose: 500 mg Lorazepam (Lorazepam 2 Mg/Ml Inj) 1 mg IV Q6HR PRN PRN Reason: Anxiety Last Admin: 12/12/23 15:32 Dose: 1 mg Methylprednisolone Sodium Succinate (Methylprednisolone Sod Succi 40 Mg/Ml 1 Ml Vial) 40 mg IV DAILY@1800 [facility] Last Admin: 12/11/23 17:43 Dose: 40 mg Metoprolol Tartrate (Metoprolol Tartrate 5 Mg/5 Ml Vial) 2.5 mg IVP Q6HR PRN PRN Reason: Heart Rate - HIGH Last Admin: 11/27/23 08:25 Dose: 2.5 mg Midodrine (Midodrine 5 Mg Tab) 5 mg PO AC-TID [facility] Last Admin: 12/12/23 12:25 Dose: Not Given Miscellaneous Information (Magnesium Replacement Protocol 1 Each Misc) 1 each MISCELLANE DAILY PRN; Protocol PRN Reason: Per Protocol Naloxone HCl (Naloxone 0.4 Mg/Ml 1 Ml Vial) 0.2 mg IV Q2M PRN PRN Reason: Opioid Reversal Pantoprazole Sodium (Pantoprazole 40 Mg/10 Ml Vial) 40 mg IVP BID [facility] Last Admin: 12/12/23 09:36 Dose: 40 mg Past medical history to include: GERD Social history: . No smoking. Physical examination: VITAL SIGNS: 100.8, 101, 26, 123 x 72, 98% GENERAL: Lethargic. Right chest wall port. EYES: Pupils equal. Conjunctiva edouard l. HEENT: External appearance of nose and ears normal, oral cavity-endotracheal tube. NG tube-low intermittent suction NECK: JVD unable to assess; masses not palpable. HEART: First and second heart sounds are normal; edema, present LUNGS: Respiratory rate increased, decreased breath sounds ABDOMEN: Soft, nontender, liver spleen not palpable, no masses palpable..jejunostomy tube-attached to tube feeding 20 cc an hour. RAYA drain. Incision with stitches PSYCH: Sedated INVESTIGATIONS, reviewed in the clinical context: December 11: White count 7.9 hemoglobin 7.4 platelets 151 sodium 133 potassium 4 BUN 88 creatinine 2.96 December 10: White count 21.3 hemoglobin 7.4 platelets 129 potassium 4.2 BUN 111 creatinine 3.77 December 09: White count 26.1 hemoglobin 8.6 platelets 154 potassium 4.1 BUN 86 creatinine 3.31. Hemoglobin this morning was 6.6 prior to transfusion EEG-evidence of generalized cerebral dysfunction and sporadic intermittent higher amplitude sharply contoured waves mainly bifrontal. Showing cortical irritability. 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 Serosal fibrous adhesions. Viable margins. December 04: White count 10.2 hemoglobin 8 platelets 90 sodium 130 potassium 4 BUN 70 creatinine 2.89 Sputum culture: [November 25]: Citrobacter freundii. Pseudomonas aeruginosa November 20: White count 14.4 hemoglobin 8.8 platelets 229 potassium 4.1 BUN [address] scan abdomen [November 19] possible small bowel obstruction Stool: C. difficile negative November 15: WBC 13 hemoglobin 7.7 platelets 248 potassium 4.3 creatinine 0.87 2D echo: EF 55 to 60%. Kidneys bladder: Unremarkable November 13: White count 12 hemoglobin 6.9 platelets 276 potassium 4.4 creatinine 1.21 magnesium 1.8 iron 6 TIBC 365% saturation 1.64 transferrin 261 ferritin 34.6 B12 569 folate 4.4 November 11: Creatinine 0.86 EGD: Large amount of retained solid liquid food noted in the stomach. Large superficial gastric antral ulceration involving most of the antrum extending into the pylorus causing pyloric stenosis. Biopsies were obtained. Chest x-ray film personally reviewed by me-scattered infiltrates Assessment plan: -Aspiration pneumonitis bilateral from retained gastric contents mostly food and liquids, causing acute hypoxic respiratory failure: On presentation: Subsequent sputum culture November 25: Citrobacter freundii, Pseudomonas aeruginosa IV meropenem-discontinued December 09 Pulmonary following -Acute pulmonary edema and fluid overload from hypoalbuminemic state and fluids from IV.:: Has been getting Lasix and dialysis -Altered mentation. Possibly encephalopathy. Could be delirium. CT brain [December 06] nothing acute Neurology following EEG-evidence of generalized cerebral dysfunction and sporadic intermittent higher amplitude sharply contoured waves mainly bifrontal. Showing cortical irritability. Keppra was started on December 07 -Small l bowel perforation at site of jejunostomy tube tip with balloon..: Portion of small bowel resected. On November 24. New J-tube was placed.- drainage to gravity:-Now discontinued Trickle feeding-restarted 10 cc an hour today -Acute kidney injury. Possible ATN from hypotensive shock: Slow to respond Renal ultrasound unremarkable. Started on renal replacement therapy on November 28. Followed by nephrology -Nutrition Jejunostomy tube placed November [address] Ewing Getting TPN. Tube feeding at 40 cc an hour today -Acute recurrent atrial fibrillation-converted to sinus rhythm Received IV amiodarone. Cardiology following Lopressor -Acute hypoxic respiratory failure from aspiration pneumonia, status post ventilator assisted: Reintubated November 25. FiO2 35 PEEP of 5 Tracheostomy tube-by Dr. Zepeda on December 09 -Septic shock, recovered -Hypertension Patient started on Cleviprex-discontinued -Intermittent hypotension Intermittent use of Levophed. 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 Also anemia of blood draw. Iron deficiency anemia Received 3rd unit of blood . IV iron. -Severe thrombocytopenia. Would consider coagulation disorder secondary to infection., In the setting of underlying lymphoma.: Recovered Hematology following. -Acute blood loss anemia, Has received 3 units of blood -Sacral stage II decub ulcer Dressing in place -GERD PPI -Acute diarrhea secondary to tube feeding.: Resolved C. difficile ruled out. -Large superficial gastric antral ulceration involving the gastric antrum extending into the pylorus with gastric outlet obstruction. 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 Port placed. For outpatient PET scan. -Full code No hemodialysis today. NG tube disconnected. Tube feeding at 40 cc an hour. Off propofol now. Spoke to eldest daughter at the bedside. Past Medical History Past Medical History: GERD/Reflux History of Any Multi-Drug Resistant Organisms: None Reported Past Surgical History: Heart Catheterization Additional Past Surgical History / Comment(s): colonsocopy,spinal injection, Past Anesthesia/Blood Transfusion Reactions: No Reported Reaction Past Psychological History: No Psychological Hx Reported Smoking Status: Never smoker Past Alcohol Use History: None Reported Past Drug Use History: None Reported
[2023-12-12] MEDS: [UNRECOGNIZED DRUG - REMARK] IV SCH (17:44)
[2023-12-12 17:59] LABS: Glucose,Whole Blood 132 mg/dL (70-110)
[2023-12-13 00:15] LABS: Glucose,Whole Blood 192 mg/dL (70-110)
--- NOTE | 2023-12-13 00:47 | EEG ---
ELECTROENCEPHALOGRAM REPORT CLINICAL HISTORY: This is a 73-year-old gentleman with altered mental status. The video EEG is obtained to evaluate for seizure epileptiform activity. RELEVANT MEDICATIONS: 1. Keppra. 2. Dilaudid. EEG TYPE: This is a routine 21-channel EEG with video using the 10/20 electrode placement system. DESCRIPTION: The patient has a trach and a ventilator. The background was hard to assess because of the diffuse myogenic artifact. The background appears 1.5 to 2.5 hertz intermixed with theta activity. There is no physiological stage 2 sleep architecture. There is no focal slowing appreciated with the limitation of study. There is significant diffuse myogenic artifact. Interictal and ictal is somewhat obscured because of the background, but there is no epileptiform discharge, or seizure noted during the study. ACTIVATION PROCEDURE: Photic stimulation again is limited, but no photic driving is noted from the limitation. Hyperventilation is not performed. CLINICAL INTERPRETATION: This is an abnormal routine EEG. The study is limited because of the diffuse myogenic artifact. The background slowing is suggestive of severe encephalopathy. Otherwise, no appreciable epileptiform discharges, focal slowing, or seizure noted during the study. Clinical correlation is recommended. MMODL / IJN: [id number] / RICHELLE
[2023-12-13 05:12] LABS: Glucose,Whole Blood 218 mg/dL (70-110)
[2023-12-13 05:34] LABS: Anisocytosis Slight; Basophils % (A) 0 %; Eosinophils % (A) 0 %; HCT 25.3 % (39.0-53.0); Hypochromasia Slight; Lymphocytes # (A) 1.1 k/uL (1.0-4.8); Lymphocytes % (A) 6 %; MCH 27.4 pg (25.0-35.0); MCHC 31.5 g/dL (31.0-37.0); MCV 87.1 fL (80.0-100.0); Monocytes # (A) 0.6 k/uL (0-1.0); Monocytes % (A) 4 %; Neutrophils # (A) 15.4 k/uL (1.3-7.7); Neutrophils % (A) 89 %; Platelet Count 191 k/uL (150-450); RBC 2.91 m/uL (4.30-5.90); RDW 19.4 % (11.5-15.5); WBC 17.3 k/uL (3.8-10.6)
[2023-12-13 05:41] LABS: African American GFR (CKD) 21 (>60 ml/min/1.73 sqM); Anion Gap 8 mmol/L; Calcium 7.3 mg/dL (8.4-10.2); Carbon Dioxide 25 mmol/L (22-30); Chloride 103 mmol/L (98-107); Glucose 204 mg/dL (74-99); Non-African American GFR(CKD) 19 (>60 ml/min/1.73 sqM); Phosphorus 5.2 mg/dL (2.5-4.5); Potassium 4.1 mmol/L (3.5-5.1); Sodium 136 mmol/L (137-145)
[2023-12-13 06:03] LABS: ABG Base Excess 3.1 mmol/L; ABG HCO3 27 mmol/L (21-25); ABG Oxygen Saturation 97.5 % (94-97); ABG PCO2 36 mmHg (35-45); ABG PH 7.48 (7.35-7.45); ABG PO2 87 mmHg (83-108); ABG TCO2 28 mmol/L (19-24); Allen Test Performed? Yes
[2023-12-13 06:35] LABS: Blood Urea Nitrogen 116 mg/dL (9-20)
--- NOTE | 2023-12-13 07:45 | XR ---
EXAMINATION TYPE: XR chest 1V portable DATE OF EXAM: 12/13/2023 COMPARISON: 12/12/2023 HISTORY: SOB, Follow Up FINDINGS: Indwelling tubes and catheters are unchanged. NG tube has been removed. Pleural parenchymal opacity throughout the right lung. Stable appearance of the cardio-mediastinal structures at this time. Pleural effusion unchanged. IMPRESSION: 1. Stable portable chest. Clinical correlation and follow up until resolution is recommended. [facility], , 12/13/2023 7:42 AM
--- NOTE | 2023-12-13 09:41 | P.PN ---
Subjective Patient is seen in follow-up for acute kidney injury. Patient underwent exploratory laparotomy with small bowel obstruction NG tube replacement Sep tem2023. Remains off Levophed. Receiving tube feeds. Nonoliguric. Started on hemodialysis November 29, 2023. Status post tracheostomy December 10, 2023. Vital signs stable. Off vasopressors. General: Resting in bed. HEENT: Tracheostomy noted. LUNGS: Scattered rhonchi. HEART: Regular rate and rhythm. ABDOMEN: No drainage. EXTREMITITES: 1+ edema. Objective - Vital Signs Vital signs: Vital Signs Temp 98.4 F 12/13/23 08:00 Pulse 98 12/13/23 09:00 Resp 26 H 12/13/23 09:00 BP 128/76 12/13/23 09:00 Pulse Ox 98 12/13/23 09:00 FiO2 30 12/13/23 08:03 Intake & Output 12/12/23 12/13/23 12/13/23 18:59 06:59 18:59 Intake Total 1421 796 89 Output Total 1750 1420 100 Balance -329 -624 -11 Weight 105.2 kg 104.5 kg Intake: IV 973 166 39 0.9 KVO 220 130 30 Normal Saline Pressure 33 36 9 Saline TPN 720 Tube Feeding 418 540 50 Other 30 90 Output: Drainage 280 170 Right Abdomen 280 170 Urine 1470 1250 100 Other: Voiding Method Indwelling Catheter Indwelling Catheter Indwelling Catheter ABP, PAP, CO, CI - Last Documented Arterial Blood Pressure 91/82 - Labs CBC & Chem 7: 12/13/23 05:12 12/13/23 05:12 Labs: Abnormal Lab Results - Last 24 Hours (Table) 12/12/23 12/12/23 12/13/23 Range/Units 12:22 17:58 00:14 WBC (3.8-10.6) k/uL RBC (4.30-5.90) m/uL Hgb (13.0-17.5) gm/dL Hct (39.0-53.0) % RDW (11.5-15.5) % Neutrophils # (1.3-7.7) k/uL ABG pH (7.35-7.45) ABG HCO3 (21-25) mmol/L ABG Total CO2 (19-24) mmol/L ABG O2 Saturation (94-97) % Hemoglobin (13.0-17.5) gm/dL Sodium (137-145) mmol/L BUN (9-20) mg/dL Creatinine (0.66-1.25) mg/dL Glucose (74-99) mg/dL POC Glucose (mg/dL) 256 H 132 H 192 H (70-110) mg/dL Calcium (8.4-10.2) mg/dL Phosphorus (2.5-4.5) mg/dL 12/13/23 12/13/23 12/13/23 Range/Units 05:10 05:12 05:12 WBC 17.3 H (3.8-10.6) k/uL RBC 2.91 L (4.30-5.90) m/uL Hgb 8.0 L (13.0-17.5) gm/dL Hct 25.3 L (39.0-53.0) % RDW 19.4 H (11.5-15.5) % Neutrophils # 15.4 H (1.3-7.7) k/uL ABG pH (7.35-7.45) ABG HCO3 (21-25) mmol/L ABG Total CO2 (19-24) mmol/L ABG O2 Saturation (94-97) % Hemoglobin (13.0-17.5) gm/dL Sodium 136 L (137-145) mmol/L BUN 116 H* (9-20) mg/dL Creatinine 3.17 H (0.66-1.25) mg/dL Glucose 204 H (74-99) mg/dL POC Glucose (mg/dL) 218 H (70-110) mg/dL Calcium 7.3 L (8.4-10.2) mg/dL Phosphorus 5.2 H (2.5-4.5) mg/dL 12/13/23 Range/Units 05:58 WBC (3.8-10.6) k/uL RBC (4.30-5.90) m/uL Hgb (13.0-17.5) gm/dL Hct (39.0-53.0) % RDW (11.5-15.5) % Neutrophils # (1.3-7.7) k/uL ABG pH 7.48 H (7.35-7.45) ABG HCO3 27 H (21-25) mmol/L ABG Total CO2 28 H (19-24) mmol/L ABG O2 Saturation 97.5 H (94-97) % Hemoglobin 8.2 L (13.0-17.5) gm/dL Sodium (137-145) mmol/L BUN (9-20) mg/dL Creatinine (0.66-1.25) mg/dL Glucose (74-99) mg/dL POC Glucose (mg/dL) (70-110) mg/dL Calcium (8.4-10.2) mg/dL Phosphorus (2.5-4.5) mg/dL Assessment and Plan Plan: Assessment: 1. Acute kidney injury secondary to ATN secondary to septic shock. Creatinine 0.86 on admission and up to 5.38 dated November 29, 2023. Urine output improved, now nonoliguric. UA fairly benign. No hydronephrosis noted on imaging. Started on hemodialysis November 29, 2023 due to volume overload. Patient initially had a right femoral catheter placed which subsequently became occluded and a left femoral catheter was placed December 06, 2023. Elevated BUN partially due to steroids. 2. Perforated small bowel status post exploratory laparotomy with abdominal washout, small bowel resection and J-tube replacement November 25, 2023. 3. A-fib with RVR. s/p amiodarone drip. Also received digoxin this admission. 4. Recently diagnosed gastric B-cell lymphoma. 5. Septic shock. Likely abdominal source. On IV antibiotics. Off vasopre ssors now. 6. Hypocalcemia secondary to acute kidney injury. Replaced. Improved. 7. Metabolic acidosis secondary to acute kidney injury. Improved. 8. Volume overload. Improved with diuresis and ultrafiltration. 9. Status post tracheostomy December 10, 2023. 10. Anemia. Component of chronic illness and acute blood loss. Received blood transfusion and DDAVP this admission. On Aranesp. 11. Respiratory alkalosis. Plan: Hemodialysis today. Will plan to hold over the and reassess Saturday. IV Lasix discontinued by ICU team today. Will need to resume if urine output tapers. Maintain tube feeds. Avoid nephrotoxins. Preserved EF noted on echocardiogram. Phosphorus level 4.1 dated December 12, 2023. Continue to monitor for renal recovery. Case discussed with present at bedside.
--- NOTE | 2023-12-13 10:27 | P.PN ---
Subjective Progress Note Date: 12/13/23 This is a 73-year-old white male with history of chronic abdominal pain for the last 8 months has been treated with Protonix 40 mg daily for the last 3 months with no improvement. Patient had a 22 pound weight loss in the last [address] of the abdomen and pelvis 3 weeks ago showed thickening of the antral wall with pathological adenopathy posterior to the stomach suspicious of neoplasm. Today the patient underwent elective upper endoscopy to evaluate further, patient received IV sedation by anesthesia endoscope was inserted into the mouth, esophagus was intubated without any difficulty there was evidence of large amount of liquid and solid food noted in the stomach suggestive of gastric outlet obstruction. Scope could not be advanced through the pylorus, however in the prepyloric area there was a large superficial ulceration identified with multiple biopsies were done from this area. The body cardia and fundus could not adequately visualize because of large amount of retained food in the stomach. Scope was withdrawn back to the stomach and upon careful examination the mucosa of the antrum body and cardia as well as the fundus appeared normal. Procedure was being performed and biopsies were done patient threw up and subsequently became hypoxic there was clearly evidence of witnessed aspiration anesthesia intubated the patient, procedure was terminated, and the patient was transferred to the ICU, this consult was initiated. Patient is now on assist- control rate of 20 tidal volume 500 FiO2 70% PEEP of 10 ABG is pending, earlier ABG showed profound hypoxia patient is on propofol at 50 mcg/kg/min, next ABG is pending. Chest x-ray showed chronic changes without evidence of acute pulmonary disease. Patient was seen and examined today on 11/13/2023, remains in the ICU, intubated mechanically ventilated, on assist-control rate of 20 tidal volume 500 FiO2 50% and PEEP of 10 ABG showed a pO2 of 143 pCO2 47 pH of 7.28 hence PEEP was cut down to 6, and increased rate to 22. Patient is still requiring IV fluid at 100 cc/h/LR. Requiring norepinephrine at 0.08 mcg/kg/min he is also on propofol at 50 mg/kg/min antibiotics arce patient is receiving Zosyn. Chest x-ray is damion wing worsening infiltrates specially in the left lung. This could be related to aspiration pneumonia. Patient had witnessed aspiration during endoscopy/upper endoscopy.WBC count is 14 hemoglobin 7.6 basic metabolic profile is normal BUN is 26 creatinine 1.57 obviously the patient sustained some acute kidney injury baseline creatinine 0.86 patient had received fluids over the last 24 hours, remains on fluids at 100 cc/h Patient with seen and examined today on 11/14/2023, patient remains in the ICU, intubated and mechanically ventilated. Failed weaning trial yesterday and he became quite agitated and desaturated once he went off propofol. Had to be placed back on assist-control mode of mechanical ventilation and sedation. Today the patient is on assist-control rate of 22 tidal volume 500 FiO2 50% PEEP of 6. ABG showed a pO2 of 123 pCO2 51 pH of 7.32, and I cut down his FiO2 down to 45%, patient is receiving a unit of packed RBCs for hemoglobin of 6.9 today. Patient had an episode of A-fib RVR at 3 AM in the morning, seen by cardiology, and recommended patient goes on amiodarone. Still requiring norepinephrine at 0.05 mg/kg/min, he is on LR at 100 cc/h propofol at 50 mg/kg/min. Remains empirically on Zosyn for aspiration pneumonia. My plan today is transitioning the patient to Precedex, hopefully discontinue propofol, and at least give the patient a decent weaning trial or at least check weaning parameters before we proceed to weaning trial. Chest x-ray continues to show evidence of pneumonia mostly in the left lung and left lower lobe more specifically. Some pulmonary vascular congestion is noted with interstitial edema, small pleural effusion is also noted/left side. WBC count today is 12 hemoglobin 6.9 basic metabolic profile is normal bicarb is 25, BUN is 25 creatinine is improving down to 1.21 from 1.57 yesterday Patient was evaluated today on 11/15/2023, patient remains in the ICU, he was extubated yesterday, and his extubation was relatively uneventful. However the patient continues to have nasogastric tube in place, his pathology report came back showing non-Hodgkin's lymphoma, patient has gastric outlet obstruction, and the recommendation by GI is to consult surgery for a jejunostomy tube which is appropriate. Patient will be seen today by oncology and he will be seen by general surgery. In the meantime patient is comfortable, he is on 5 L nasal cannula he has LR running at 100 cc/h, he is remains on Zosyn for aspiration pneumonia remains on amiodarone which was started by cardiology for atrial fibrillation with RVR, presently in sinus rhythm. Cannot switch him to oral because of the fact that remains n.p.o., patient remains on TPN. WBC count is 10.7 hemoglobin 7.5 electrolytes are normal renal profile is normal, creatinine normalized to 0.96 Patient was evaluated today on 11/16/2023, remains in the ICU, on 5 L nasal cannula remains on amiodarone at 0.5 mg/min remains on LR at 100 cc/h, however his chest x-ray is showing some component of interstitial edema or could be findings related to his recent episode of aspiration/aspiration pneumonia, nonetheless the patient seems to be a bit symptomatic, he has intermittent cough and wheezing, I am recommending Lasix 40 mg IV push, cut down his IV fluid to 50 cc/h, continue Zosyn, patient will be placed on DuoNeb updrafts and on Solu- Medrol. Patient is scheduled to have jejunostomy-tube placement today. WBC count is 13 hemoglobin 7.7 basic metabolic profile is normal and renal profile is normal Patient was evaluated today on 11/17/2023, patient underwent uneventful placement of a jejunostomy tube yesterday, in the ICU on 5 L, patient is relatively stable, not in any distress, patient continues to have nasogastric tube in place although he did have a J-tube placed yesterday. Patient was seen by oncology for his non-Hodgkin's lymphoma involving the gastric outlet. Today's x-ray showed evidence of pneumonia/bilateral interstitial infiltrate/edema patient was given a dose of Lasix, I reminded the patient had an aspiration episode which was significant. And he required intubation mechanical ventilation for a few days.WBC count today is 9.1 hemoglobin 7.9 electrolytes are normal renal profile is normal hence I plan to transfer the patient out of the ICU to a cardiac floor. And hopefully discharge planning in the next 2 days for The patient was seen today November 18, 2023 in follow-up in the intensive care unit. He is currently sitting up in bed. Awake and alert in no acute distress. He is maintaining O2 saturations in the 90s on 5 L/min per nasal cannula. Glucose 177. Remains on DuoNeb inhalations and Solu-Medrol. Antibiotics in the form of Zosyn. He has a J-tube in place. He was initiated on vital AF 1.2 at 10 mL an hour with a goal of 82 mL/h The patient is seen today November 19, 2023 in follow-up in the intensive care unit. He is a regular medical floor overflow patient. He is currently sitting up in a chair. Awake and alert in no acute distress. He is maintaining O2 saturations in the 90s on 5 L/min per nasal cannula. No IV fluids. He denies any worsening shortness of breath, cough or congestion. He is having some issues with diarrhea. He remains on Zosyn. He is receiving vital AF at 55 mL/h with a goal of 82 mL/h. Glucose 161. Solu-Medrol, DuoNeb inhalations. The patient is seen today November 20, 2023 in follow-up on the regular medical floor. He is currently up in a chair at the bedside. Awake and alert in no acute distress. Denies any worsening shortness of breath, cough or congestion. He is maintaining O2 saturation in the 90s on 3 L/min per nasal cannula. He continues on Zosyn. Continues on bronchodilators and steroids. White count 12.3. Hemoglobin 9.0. Platelets 258. Glucose 168. He is not tolerating his tube feeds as he has developed diarrhea. C. difficile screen was negative. Abdominal series revealed cardiomegaly with left basilar acute infiltrate and/or atelectasis. Overall nonspecific bowel gas pattern. A small bowel obstruction needs to be considered. Progress note dated November 21, 2023. The patient is seen in room 517. The patient is currently on 3 L of oxygen. He continues on Zosyn. His biggest complaint has been abdominal discomfort and diarrhea. He did have a CT scan of the abdomen and pelvis. Current laboratory data includes a white count of 14.4, hemoglobin 8.8, hematocrit 28.7, and platelet count 229,000. Sodium 139, potassium 4.1, chlorides 103, CO2 30, BUN 42, creatinine 0.94. Glucose is 158. Calcium is 8.5. Progress note dated November 22, 2023. 73-year-old male seen in room 517. He currently is on 2 L of oxygen. Room air saturation was 89%. Chest CT shows bilateral patchy infiltrates. He continues on Zosyn. He is still not taking anything by mouth. No new laboratory data today other than a glucose of 138. Gram stain was negative. Progress note dated November 23, 2023. 73-year-old male seen in room 517. He is resting comfortably without complaints. He continues on saline at 10 cc an hour, tube feedings with Pivot at 20 cc an hour, Zosyn, and 2 L by nasal cannula. He has had an uneventful night. Laboratory data today includes a white count 14.5, hemoglobin 9.7, hematocrit 31.4, and a platelet count of 242,000. Sodium 138, potassium 3.7, chlorides 106, CO2 26, BUN 39, creatinine 0.95. Glucose is 181. Calcium is 8.5. Sputum sampling was negative. Progress note dated November 24, 2023. 73-year-old male who is seen in room 517. The patient has been having significant abdominal discomfort, and went for a evaluation, ordered by surgery today, to determine whether or not the feeding tube, was in proper position, and whether or not there is anything acutely going on in the abdomen. He had been having diarrhea. He is on 3 L of oxygen. He has been here for 12 days. This is a patient, that had a prior EGD, aspirated, because of gastric outlet obstruction, and was diagnosis of non-Hodgkin's lymphoma. He is currently on Zosyn, DuoNebs, and Solu-Medrol. He has been NPO. Chest x-ray showed a left lower lobe infiltrate. Abdominal x-ray showed multiple air-fluid levels. CT of the abdomen showed multiple dilated small bowel loops, consistent with obstruction, pneumoperitoneum, ascites, and cholelithiasis. White count was 14.1, hemoglobin 8.9, hematocrit 29.5, and platelet count was 255,000. Glucose was 143. 11/25/2023, the patient is being seen in the intensive care unit. The patient is critically ill, n.p.o., he has an NG tube in place. Following the NG tube insertion, there was a total of 2.0 L of output and the patient's J-tube was also draining approximately 200 cc over the past 8 hours. Continues to have abdominal pain which is rather diffuse and the patient has direct abdominal tenderness. CAT scan of the abdomen was noted and was consistent with small bow el obstruction. The patient has a stomach that was inflated and in the same time there were multiple loops of small bowel distended with fluid. This extended to the pelvis. J-tube with contrast nondilated small bowel loops within the mid abdomen. Additional loops of small bowel were seen that was dilated. There was some contrast in the right lower quadrant and contrast was also in the cecum. No transition point was identified. The dilated loops of the bowel appeared to be in the proximal jejunum and distal to the duodenum. General surgery is on the case the patient will be taken to the operating room for another exploratory laparotomy. Noted the CAT scan of the abdomen also showed pneumoperitoneum and small amount of ascites and cholelithiasis. Hemodynamically, the patient is currently on normal saline at rate of 75 cc an hour. He is hypotensive and is going to be started on pressors. He is on 4 L of oxygen by nasal cannula. He also has sustained acute kidney injury. Blood work from today shows a rise in the creatinine which is currently up to 2.5 with a BUN of 57. Serum bicarb is at 14 with an anion gap of 11. The patient WBC count is at 8.2 with a hemoglobin of 12.3 and a platelet count of 188. Chest x- ray from this morning is showing a right-sided port and a stable left lung airspace disease and an NG tube being in place. The patient remains on IV Zosyn. The patient is receiving Dilaudid for pain control. The patient remains on IV Solu-Medrol 60 mg every 6 hours. It was noted that the patient's surgical wound over the port has dehisced and there is some serous drainage and erythema at the incision site. Awake and alert and communicating. Family at the bedside. No apparent signs of respiratory distress at this point. 11/26/2023, the patient is being seen in follow-up. Events from yesterday was noted and the patient was taken to the operating room for exploratory laparotomy. The patient was found to have large amount of free fluid noted in the abdomen and there was significant contamination. There was perforation of the small bowel with the balloon of the previously inserted jejunostomy tube penetrating through the perforation. As such, the tube was removed, abdominal washout was done. Small bowel resection was done and the patient had a nodular jejunostomy tube inserted. Postop, the patient was extubated he was unable to tolerate extubation and the patient was kept intubated on mechanical ventilator and he was brought back to the intensive care unit. He is currently postop day #1 following his small bowel resection. Abdominal surgical wound site is dry clean and intact. This morning, the patient remains sedated on propofol which is currently running at 35 mcg/kg/min. He is on assist-control mode of mechanical ventilation at rate of 28, tidal volume of 550, FiO2 of 60% with a PEEP of 5. Blood gas from today shows a pH of 7.35 with a pCO2 44 and pO2 of 88. Chest x-ray shows adequate positioning of the orotracheal tube. The patient has a Mediport on the right and a subclavian triple-lumen catheter on the left and the patient has persistent bilateral pleural effusion and infiltrates in lung base bilaterally. Hemodynamically, the patient remains in shock. He has been on high-dose norepinephrine which is currently running at 0.28 mcg/kg/min and the patient is also on vasopressin at 0.03 units an hour. He is IV fluids are in the form of bicarb infusion running at rate of 150 cc an hour. He is in sinus tachycardia. NG tube output has been 250 cc over the past 8 hours and the output from the J-tube is minimal at this point in time. Urine output is quite diminished as the patient has also sustained acute kidney injury. Overall fluid balance is +4.9 L over the past 24 hours. The patient's white cell count of 5.7 with a hemoglobin 9.9 and platelet count of 172. BUN is 72 with a creatinine of 2.8 and sodium levels at 143. The calcium level is at 6.5. LFTs are normal. Triglyceride level is at 315. On 11/27/2023, the patient remains critically ill. Remains intubated and on mechanical ventilator, still awaiting shock which is essentially septic shock. Remains on propofol which is running at 50 mcg/kg/min. Remains on the mechanical ventilator, assist-control mode with rate of 28, tidal volume of 550 with an FiO2 of 60% with a PEEP of 5. Blood gas shows a pH of 7.29 with a pCO2 of 47 and pO2 of 78. The patient had a follow-up chest x-ray that showed lower lobe consolidation slightly worse on the right and the orotracheal tube is in a good location. Urine output is diminished in the order of 5 to 10 cc an hour and the patient is also developing progressive worsening renal function. Remains on normal citrate of 150 cc an hour and the patient was started on TPN which is running at 30 cc an hour. He has a triple-lumen catheter in his left subclavian. Overall fluid balance over the past 24 hours is +3.9 L. Output from the NG tube and the J-tube is minimal. Hemodynamically, he is hypotensive and norepinephrine running at 0.45 mcg/kg/min. Vasopressin is a physiologic dose. He received amiodarone and he remains on maintenance amiodarone of 0.5 mg/min and the patient continues to be in atrial fibrillation and is having episodes of tachycardia. The white cell count is at 13, hemoglobin 9.4 platelet count is pending. The patient's BUN is 83 with a creatinine of 3.7. Sodium is at 140 with a potassium level of 5.5 dropped down to 4.4 as the sample was hemolyzed. LFTs are normal. Abdominal wound is dry clean and intact. RAYA drainage is essentially serous at this point in time. 11/28/2023, the patient is being seen for a follow-up. The patient remains intu bated on mechanical ventilator. This morning, the patient tolerated propofol drip running at 50 mcg/kg/min. The patient is on mechanical ventilator assist- control mode with rate of 28, tidal volume of 550, FiO2 55% with a PEEP of 5. Chest x-ray shows stable findings with lower lobe consolidations bilaterally. Blood gas shows a pH of 7.32 with a pCO2 38 and pO2 90. Neuropathy has improved and the patient is producing approximately 30 cc an hour and the overall input output balance is +3.3 L over the past 24 hours. The patient is still on pressors although his pressor requirements have improved since yesterday. He is on norepinephrine which is running at 0.05 mcg/kg/min and vasopressin physiologic dose. Also, the patient on amiodarone drip regarding his chronic ongoing atrial fibrillation. Amiodarone drip is running at 0.5 mg/min. Nevertheless, the rate is under much better control. Noted the patient was given a dose of digoxin 0.5 mg IV yesterday which helped with rate control. Remains on normal citrate of 150 cc an hour. Remains on TPN at 40 cc an hour. Output from the J-tube is fecal. Output from the NG tube is more gastric. Surgical wound site is dry clean and intact. Sputum Gram stain and culture showing Pseudomonas and Citrobacter. Note that the Citrobacter was intermediate resistance to Zosyn. This will be discussed further with infectious disease. Blood cultures are still pending for now. They have negative based on the most recent check. Blood work from today shows WBC count 11.2, hemoglobin 7.9 and platelet count of 46. Sodium is at 140, potassium is at 4.3, chloride is 114 with a bicarb of 18. He has 93 and the creatinine is 4.8. Serum random vancomycin level is at 25.7. On 11/29/2023, the patient is being seen for a follow-up. Remains intubated on the mechanical ventilator. The patient sedated on propofol which is running at 35 mcg/kg/min. Synchronous with mechanical ventilator. On today's evaluation, he is on assist-control mode with rate of 28, tidal volume of 550, FiO2 55% with a PEEP of 5. Chest x-ray shows lower lobe consolidation bilaterally worse on the right and the orotracheal tube is in good location. The blood gas showed a pH of 7.34 with a pCO2 of 35 and a pO2 of 84. No significant orotracheal secretions. Hemodynamically improved compared to yesterday. In fact, the patient is on minimal norepinephrine that was discontinued earlier this morning. The patient has converted to normal sinus rhythm. Remains on amiodarone at 0.5 mg/min. Overall fluid balance over the past 24 hours is 2.4 L positive. Urine output has been adequate and the patient is currently on IV Lasix. Nevertheless, the patient has developed progressive worsening renal function. Creatinine is up to 5.3 on today's evaluation with a potassium level of 4.4. Serum bicarb is at 18 with an anion gap of 9. WBC count is at 8.1 with a hemoglobin of 7 and a platelet count of 32 which has dropped compared to earlier evaluation. The rest of the coagulation profile was normal from 11/28/2023. Fibrinogen level is slightly elevated. Sputum samples have shown a combination of Citrobacter and Pseudomonas aeruginosa. Based on cultures and sensitivities, the patient will be taken off his IV Zosyn and he will be switched to IV merop enem. Output from the J-tube is fecal. Output from the NG tube is gastric and surgical wound site is dry clean and intact. He is afebrile for now. Hemodynamically, the patient is doing better. He remains on TPN for nutritional support. IV fluids are also running at a rate of 75 cc an hour. Remains on vancomycin. 11/30/2023, the patient is being seen for a follow-up. The patient remains on propofol at 50 mcg/kg/min. Ventilator settings are essentially unchanged. The patient remains on assist-control mode with rate of 18, tidal volume of 400, FiO2 50% with a PEEP of 5. The blood gas showed a pH of 7.37 with a pCO2 of 43 and pO2 of 127. Chest x-ray shows no significant interval change. Patient remains on normal saline at rate of 75 cc an hour and TPN at rate of 35 cc an hour. Fluid balance is positive. Hemodialysis was performed yesterday and the second session of hemodialysis to be done today. The patient's urine output is in the order of 20 to 30 cc an hour. The patient has an NG output of 350 cc for yesterday and the drainage from the J-tube is in the order of 400 cc over the past 24 hours. The blood work shows a WBC count of 10.8, hemoglobin 8.1 and platelet count of 41. Platelet counts are essentially stable and slightly improved compared to yesterday. The sodium level is at 133, potassium is at 4.3, BUN is 93 with a creatinine of 3.6. LFTs are within normal limits. Albumin is down to 2.1. The patient is currently on no pressors. Norepinephrine and vasopressin are both discontinued and the patient remains in normal sinus rhythm. No other significant events overnight. Family has been updated on his condition. Antibiotic coverage is currently with IV meropenem. Vancomycin and Zosyn have been both discontinued. On 12/01/2023, the patient remains sedated on propofol which is running at 25 mcg/kg/min., Comfortable and synchronous mechanical ventilator. The patient remains on assist-control mode rate of 28, tidal volume of 550, FiO2 40% and PEEP of 5. Blood gas shows a pH of 7.49 with a pCO2 of 34 and pO2 of 121. Patient underwent hemodialysis yesterday. No plans for hemodialysis today the patient is producing urine output. Remains on TPN for nutrition support rate of 75 cc an hour. IV fluids are currently at KVO. The chest x-ray from today shows bilateral lower lobe consolidation worse on the right. No significant change in the volume status. The patient continues to have third spacing and edema in all 4 extremities. Nevertheless, urine output is adequate at this point in time and the patient remains on Lasix 80 mg IV every 12 hours. Remains NPO. NG tube and J-tube are both drainage. Output is noted. Remains on IV meropenem. Afebrile. Currently on no pressors. Blood work shows a WBC count of 11.4, hemoglobin of 8.1 and platelet count of 46. Sodium is at 131, potassium level is at 3.7, chloride 101 and bicarb is at 24. BUN is 84 with a creatinine of 3.6. Glucose of 228. LFTs are within normal limits. Patient was reevaluated today on 12/02/23, patient remains in the ICU, patient is familiar to my service, I saw this patient 3 weeks ago. Since then he had a very complicated hospital course, related to his jejunostomy tube dislodging and leaking and picture of abdominal sepsis and worsening pneumonia/ARDS. Patient had to be placed back on mechanical ventilation, and he is now intubated and mechanically ventilated. He is on assist-control rate of 20 tidal volume 550 FiO2 40% PEEP of 5 ABG showed a pO2 of 111 pCO2 38 pH of 7.43 and I cut down his FiO2 to 35% and increase his flow rate from 60-70. Patient remains on TPN at 75 cc/h he is on propofol at 25 mcg/kg/min patient is on Cleviprex which I added today for elevated blood pressure. Receiving Lasix 80 mg every 12 hours is also on Merrem as per infectious disease. Patient is on hemodialysis and being followed by nephrology. Patient required multiple abdominal surgeries since his initial admission. Chest x-ray continues to show worsening pneumonia involving both lungs, right more so than left, I suspect there may be a component of ARDS. His initial presentation was the presentation of aspiration pneumonia to begin with and that was 3 weeks agoWBC count is 10.3 hemoglobin 8.6 sodium 131 potassium 4 chloride 100 bicarb 23 BUN is 111 creatinine 4.02 blood sugar is 248. Albumin is 1.9 Patient was evaluated today on , patient remains in the ICU, intubated and mechanically ventilated. Patient is on assist-control rate of 20 tidal volume 550 FiO2 35% and PEEP of 5 ABG showed a pO2 of 99 pCO2 39 pH of 7.44 patient is undergoing hemodialysis today, and the plan is to remove 2 L. He is remains on propofol at 35 mcg/kg/min, remains on TPN at 75 cc/h. Remains on Merrem. Patient is not requiring any pressors today. Yesterday patient did not tolerate to be off sedation long enough, and today we tried the same sedation interruption, and the patient did not do well post interruption of sedation, became extremely agitated restless, tachycardic, and could not fully assess mental status off sedation. Hence the patient was placed back on AC mode of mechanical ventilation, and the plan is to continue the same supportive care measures. Family updated on his condition and most likely the patient will end up requiring tracheostomy in the next few days.WBC count is 8.5 hemoglobin 8.2 basic metabolic profile is relatively unremarkable BUN is 89 creatinine 3.45 chest x-ray today showed stable chest, suspect some right-sided pleural effusion which would likely improve with hemodialysis/ultrafiltration. X-ray of abdomen showed nonspecific nonobstructive bowel gas pattern Patient was seen today on 12/04/2023, remains in the ICU, intubated mechanically ventilated, on assist-control rate of 20 tidal volume 550 FiO2 35% PEEP of 5 ABG showed a pO2 of 112 pCO2 38 pH of 7.45, hence no changes were made in ventilator settings. Patient is on propofol at 35 mcg/kg/min he is also on IV fluid at KVO TPN at 75 cc/h. Remains on hemodialysis remains on Lasix 80 mg IV push twice daily, remains on Merrem. This x-ray continues to show the same findings/airspace disease in both lungs, not much of a change in the last 2 days, however his oxygenation seems to be improved. WBC count is 7.1 hemoglobin 7.7. Electrolytes are normal, BUN is elevated 77 creatinine 3.32, patient is on hemodialysis. His condition was discussed today with the at bedside, and I do not believe the patient is ready to be weaned or extubated, however he seems to get extremely agitated when he goes off propofol, today I plan to transition propofol to Precedex, give him a trial on Precedex and determine whether the patient becomes more appropriate and at least ready for any weaning trials. Clinically I doubt if this will happen but we will go ahead and try Patient was evaluated today on 12/05/2023, remains in the ICU, intubated mechanically ventilated, not much of a change noted in the last 24 hours. Remains on assist-control of 20 tidal volume 550 FiO2 35% PEEP of 5 ABG showed a pO2 of 90 pCO2 37 pH of 7.48 hence chose not to change any of his ventilator settings. Yesterday the patient failed again trial of weaning, and he was never anywhere near ready to be weaned in spite of placing him on Precedex and off propofol, at 1 point the patient became extremely agitated restless and he was biting on the endotracheal tube could not fully awake the patient and determine improvement in his mental status. Hence patient was placed back on propofol yesterday and he remains on propofol today. He is on propofol at 25 mcg/kg/min he is on TPN at 75 cc/h surgery is considering starting his J-tube feedings today. Remains on hemodialysis remains on Merrem remains on Lasix 80 mg IV push twice daily overall not much of a change his chest x-ray is basically about the same showing bibasilar airspace disease. Today I had a discussion with the regarding the option of tracheostomy extremely reluctant to have it done yet. Said that the patient had multiple complications with previous surgeries and she is afraid that he is going to have another complication with the surgeryWBC count is 10.2 hemoglobin is 8, basic metabolic profile is normal sodium 130 BUN 70 creatinine 2.89 Patient was seen today on 12/06/23, remains in the ICU, intubated mechanically ventilated, his ventilator settings are assist-control rate 20 tidal volume 550 FiO2 35% and PEEP of 5 ABG showed a pO2 of 103 pCO2 36 pH of 7.47 patient opens eyes but does not follow any other instructions. He is now off propofol for the last 24 hours, he is maintained on Precedex at 0.4, TPN at 75 cc/h vital AF at 5 mL/h. Patient remains on Merrem, patient did not receive dialysis today because issues related to occluded dialysis catheter. Nonetheless the patient is making urine, and continues to improve with diuretics. Chest x-ray continues to show bibasilar airspace disease, not much of a twisting frame changer the last 1 week.WBC count today is 11.8 hemoglobin is 7.9.Basic metabolic profile is normal BUN is 92 creatinine 3.74. Blood sugar is 226. Family is at bedside, considering his overall mental status at this point, not quite ready to start checking weaning parameters, and is not ready for weaning. Nonetheless I plan to keep him on Precedex, and hopefully avoid narcotics and other sedatives. His mentation starts clearing a bit more, then will start trials of weaning parameters and/or weaning trials Patient was seen today on 12/07/2023, remains in the ICU, intubated and mechanically ventilated, on assist-control rate of 20 tidal volume 550 FiO2 35% PEEP of 5 ABG showed a pO2 of 83 pCO2 33 pH of 7.50 hence the tidal volume was cut down to 500. Patient remains off propofol remains off narcotics is only on Precedex for sedation at 0.6 mg/kg/h. He is on norepinephrine at 0.02 TPN at 75 cc/h IV fluid at KVO vital AF at 10 mL/h is also on Merrem. Neurologically I am concerned about this patient neurological status, does not seem to be waking up much, he opens his eyes but does not follow any instructions and spite of sedation hold for quite some time. Hence I am recommending a CT of the brain and multiple recommending a neurological consultation on this patient. WBC count is 18 7 hemoglobin is 8.4, basic metabolic profile is normal BUN is 75 creatinine 2.95, patient is back on dialysis, he had a new hemodialysis catheter placed yesterday by vascular surgery, and he will be restarted back on hemodialysis. CT of the brain done shortly after evaluating the patient showed no acute intracranial process chest x-ray basically about the same, continues to show small left and moderate right basilar infiltrate. Has not changed much over the last 1 week, patient remains on antibiotics. Patient was seen today on 12/08/2023, remains in the ICU, intubated and mechanically ventilated, remains on assist-control rate of 20 tidal volume 500 FiO2 35% PEEP of 5 ABG showed a pO2 of 88 pCO2 37 pH of 7.47 hence no changes were made in ventilator settings. Chest x-ray is showing slight increase in his right-sided pleural effusion, however his oxygenation seems to be about the same, and the patient is responding to Lasix given at 80 mg IV push every 12 hours, he is also doing well with hemodialysis he had 2 L removed yesterday and 2 L the day before. Hence will not recommend thoracentesis at this point. But the pleural effusion will need to be closely monitored. Patient remains off propofol he is on Precedex at 0.6 mcg/kg/h. For the last 2 days, and his mentation is not much different from baseline. Continues to open his eyes and does not follow any other instructions has the patient is clearly not ready for weaning trials or extubation. Brought up the issue of tracheostomy again with the , she is still reluctant to proceed with tracheostomy on him at this point. Patient remains on Merrem, remains on TPN but his enteral feeding will be advanced today to full goal, and if that happens then we will can discontinue TPN. Patient is receiving vital AF 1.2@10 mL/h at this point.WBC count is 19.3 hemoglobin 7.6. Basic metabolic profile is normal BUN is 72 creatinine 2.99 blood sugar ranging between 250 up to 334. 12/09/23 - patient seen at bedside today, remaining in the ICU, intubated and mechanically ventilated, remaining on assist-control rate of 20, tidal volume 500, FiO2 30%, PEEP of 5 and oxygen saturation of 100%. Patient is on day 27 of his hospital stay (admitted 11/11), day 15 of this current ICU stay (readmit to the ICU 11/24) and day 15 of this current period of time on the ventilator (placed 11/24). ABG showed pO2 100, pCO2 36, pH 7.47. Chest x-ray was deemed to be stable, however possibly with slight improvement noted on the left with a right-sided pleural effusion remains evident however the patient's oxygenation remains to be about the same. Continue to receive 80 mg IV Lasix every 12 hours and is receiving daily hemodialysis, in which he has been having 2 L removed the past couple of days, hemodialysis yet to occur today. His creatinine is 3.57 (compared to 2.99 yesterday) and BUN 98 (compared to 72 yesterday). Due to this response to diuresis and hemodialysis, no thoracentesis recommended at this point however pleural effusion will need to continue to be monitored. Patient shon off propofol, he is on Precedex at 0.4 mcg/kg/h. Due to his mentation remaining near baseline, neurology had been consulted who ordered an EEG which showed diffuse background slowing of his severe degree which is suggestive for generalized cerebral dysfunction and can be seen with toxic metabolic encephalopathy, as well as the presence of sporadic intermittent, some higher amplitude, sharply contoured waves of generalized distribution. Because of this per neurology's recommendation, patient started on Keppra 500 mg twice daily. The patient does seem to be having some improved mentation, with opening his eyes and responding to commands some of this morning. Spontaneous breathing trial to be attempted today, to see if the patient will be able to come off of mechanical ventilation. If that is unable to occur, discussed with the patient as well as his and one of his daughters that a tracheostomy would be the most appropriate next course of action due to the potential dangers of sustained endotracheal intubation for prolonged period of time. The , while reluctant, seem to acknowledge that this is the appropriate course of action. He remains receiving meropenem 1 g nightly. He remains on TPN 75 mL/h, which she has been on since 11/21 (18), but his enteral feeding has been vital 1.2 AF at 10 mL/h with a goal rate of 80 mL/h. Patient drained 60 mg of serosanguineous fluid from his RAYA. His WBCs increased to 21.5 (compared to 19.3 yesterday), hemoglobin dropped to 7.2 (compared to 7.6 yesterday), hematocrit dropped to 22.0 (compared to 22.9 yesterday) and patient procalcitonin remains elevated at 3.07. 12/10/23 - Patient seen at bedside today, remaining in the ICU, intubated and mechanically ventilated, remaining on assist-control rate of 20, tidal volume 500, FiO2 30%, PEEP of 5 and oxygen saturation of 100%. Patient is on day 28 of his hospital stay (admitted 11/11), day 16 of this current ICU stay (readmit to the ICU 11/24) and day 16 of this current period of time on the ventilator (placed 11/24). ABG showed pO2 93, pCO2 37, pH 7.47, showing evidence of a mild metabolic alkalosis. Chest x-ray today showed stable disease compared to yesterday. He received levo overnight due to atypical blood pressure, patient's TPN was up to 120 due to the change in formula. Patient is scheduled to undergo tracheotomy today (12/09) at 16:30. Per the nurse and the overnight staff patient continues to open his eyes and shows some responsiveness to commands. Per nephrology's recommendation dialysis to be held today due to the patient going for the tracheotomy later, as well as the dip in blood pressure seen after yesterday's dialysis session which required Levophed. Patient's Hgb this morning 6.6, will be given 1 unit today, which will be the second unit he has received during his hospital course. Patient's airway resistance noted to be 3.3 cm/L/s, static lung compliance shown to be 45 mL/cm H2O and dynamic compliance 33 mL/cm H2O. 12/11/23 - Patient seen at the bedside, remaining in the ICU, with a tracheotomy tube and mechanically ventilated while receiving dialysis. Patient remains on assist-control rate of 20, FiO2 30%, PEEP of 5 and has an oxygen saturation of 97%. Patient is on day 29 of the hospital stay (admitted 11/11), day 17 of his current ICU stay (readmitted to the ICU 11/24) and day 17 of his current period of time on the ventilator (placed 11/24). ABG today showed pO2 115, pCO2 38, pH 7.44 continuing to show evidence of a mild metabolic alkalosis. Chest x-ray today showed stable disease. Patient had tracheotomy placed yesterday afternoon (12/09) without any complications. Patient has had 3 consecutive days of attempting spontaneous breathing trials in an effort to wean the patient off the ventilator, all of which failed to this point. Beginning today the patient's antibiotics (meropenem) will be discontinued and we will begin weaning his propofol down from 25 mcg/kg/min. As the patient is weaned off of the propofol, 0.5 Dilaudid and 1 mg IV Ativan to be used every 6 hours as needed. Patient is continuing to receive normal saline 20 cc/h, and has a total of 200 mL of serosanguineous fluid from his RAYA drain. TPN to continue at a rate of 120 mL/h additionally tube feeds, which had been held due to the patient receiving straight catheter yesterday, will be restarted today with an ultimate goal being to receive enteral nutrition at a rate of 80 mL/h. TPN to continue until able to increase the enteral nutrition to at least 50 mL/h, as per the dietitian's recommendation. Will be exploring the possibility of the patient being moved to select specialty. 12/12/23 - Patient seen at the bedside this morning, in ICU room 253, while receiving and EEG, no significant events overnight. Patient remains with tracheotomy and is mechanically ventilated on assist control with a rate of 20, tidal volume 500, FiO2 30%, PEEP of 5 with an oxygen saturation of 98%. Patient is on day 30 of the hospital stay (admitted 11/11), day 18 of his current ICU stay (readmitted to the ICU 11/24) and day 18 of his current period of time with mechanical ventilation (placed in 11/24). ABG today showed pO2 92, pCO2 36, pH is 7.49 continue to show signs of a combined respiratory and metabolic alkalosis. WBC 17.9, Hgb 7.4, Hct 22.6, PLT 151; sodium 133, potassium 4.0, HCO3 27, BUN 88, creatinine 2.96. Chest x-ray done today continuing to show patchy infiltrate throughout the right lung with layering effusion. Patient is continuing to receive normal saline 20 cc/h, continues to receive Dilaudid 0.5 mg IV push every 6 hours as needed, as well as Ativan 1 mg IV every 6 hours as needed. Patient is no longer maintained on propofol. TPN continues at a rate of 120 mm/h and EN vital AF at 30 mL/h with a goal of 40 mL/h. Once goal is reached, TPN can be discontinued and patient will be switched over to Nepro 50 mL/h. Following the patient having 3 consecutive days of attending spontaneous breathing trials and effort to wean, we will begin trying the patient with CPAP and pressure support in effort to wean, today's trial the patient will be placed on PS 5 and PEEP of 5 for 25-45 minutes, or as he is able to tolerate it. Discussed with the patient's the importance of continuing to wean the patient's with trials, in an effort to build up some of the strength in his lungs to better be able to tolerate breathing on his own. Will continue to evaluate for possible placement in a long-term acute care facility. 12/13/23 - Patient seen at the bedside this morning, in ICU room 253, with no significant events overnight noted. Patient remains with tracheotomy and is mechanically ventilated on assist control with a rate of 20, tidal volume 500, FiO2 30%, PEEP of 5 with an oxygen saturation of 98%. Patient is on day 30 one of the hospital stay (admitted to 11/11), day 19 of his current ICU stay (readmitted to the ICU 11/24) and day 19 of his current period of time with mechanical ventilation (placed 11/24). ABG today showed pO2 87, pCO2 36, pH 7.48 continue to show signs of a combined respiratory metabolic alkalosis. WBC 17.3, Hgb 8.0, Hct 25.3, PLT 191; sodium 136, potassium 4.1, BUN 116, creatinine 3.17. This x-ray done today continues to show stable disease. Patient had an EEG completed yesterday (12/11) which showed an abnormal EEG, study being limited because of diffuse myogenic artifact. Background slowing suggestive of severe encephalopathy. Otherwise no appreciable epileptiform discharges, focal slowing, or seizure noted during the exam. Patient continues to receive Dilaudid 0.5 mg IV push every 6 hours as needed, as well as Ativan 1 mg IV every 6 hours as needed. Patient's TPN has been stopped, he is not receiving Nepro at 50 mL/h, which is goal. Patient Solu-Medrol has been discontinued, patient now receiving 30 mg prednisone daily. Patient's trial yesterday with CPAP and pressure support with the patient was sent PS of 5 and PEEP of 5, patient tolerated 40 minutes well it was noted that his respiratory rate increased and his minute ventilation also increased during this time. Will continue with another weaning effort today and continue to reassess how the patient tolerates. He will be receiving hemodialysis today, with the plan to hold over the weekend and then reassess Saturday per nephrology. Additionally IV Lasix has been discontinued on this patient, nephrology did state that he may need to resume receiving the Lasix if the urine output tapers. REVIEW OF SYSTEMS: Could not be assessed, with tracheotomy patient on mechanical ventilation and sedated. PHYSICAL EXAMINATION: General: Revealed 73-year-old male with tracheotomy, mechanically ventilated, sedated, on propofol 25 mcg/kg/min with the goals of weaning. Supine position 96% O2 saturation, 30% FiO2 and PEEP of 5 Skin: Skin is warm and dry and no rashes or lesions are noted. HEENT: Pupils are round and equally reacting to light. EOMI. No scleral icterus. No conjunctival pallor. Normocephalic, atraumatic. No pharyngeal erythema. No thyromegaly. Cardiovascular: There is a regular rate and rhythm. No murmur, rub or gallop is appreciated. Respiratory: Diminished breath sounds and crackles at the bases no rhonchi no wheezes Gastrointestinal: J-tube is noted RAYA drain is noted NG tube is in place mild abdominal distention, no rebound, no guarding, no bowel sounds, no significant leak noted from the tubes in the abdomen. Musculoskeletal: No deformities and no limitation range of motion Neurological: Patient does not follow any instructions opens eyes and does not follow any instructions; seems to be following some commands this morning, will continue to monitor Extremities: Trace of bipedal edema as well as some edema noted of the upper extremity Assessment and plan # Acute hypoxic respiratory failure requiring intubation mechanical ventilation secondary to aspiration during upper endoscopy most likely secondary to gastric outlet obstruction Continue ventilatory support Continue DuoNeb 3 mL elation 4 times daily, Solu-Medrol 40 mg IV daily Will continue to attempt spontaneous breathing trials as per minutes with the patient, the goal of eventual extubated the patient Tracheotomy scheduled for 12/09; tracheotomy completed without complication Continue trialing the patient with pressure support of 5 and CPAP 5, today's trial will be 30-45 minutes, or as tolerated Patient tolerated well on 12/11, with noted increased respiratory rate as well as minute ventilation Trialing will continue to follow for strengthening of the patient's muscles of respiration, and return to her adequate strength and ability to breathe on his own Continuing to evaluate for placement of a long-term acute care facility # Paroxysmal atrial fibrillation - resolved at the moment Normal on telemetry, patient noted to be in A-fib with RVR Patient was started on amiodarone drip Amiodarone discontinued, patient was on Lopressor 12.5 twice daily however also discontinued # CRISTAL secondary to sepsis and septic shock Patient receiving hemodialysis since 11/28 Noted hyperkalemia and dialysis catheter center dialysis completed on 12/05 New dialysis catheter placed 12/06 dialysis was resumed Removed 2 L each of the past couple of days, pending today Patient's kidney function continues to decline, creatinine 3.57 today (compared to 2.99 yesterday) and BUN 98 (compared to 72 yesterday) Continue dialysis, with next treatment being today (12/09); no dialysis today (09/08) due to patient undergoing tracheotomy later today as well as a decrease in blood pressure yesterday during dialysis which required Levophed Dialysis continuing today (12/10) Next hemodialysis session will be tomorrow (12/12) Will receive hemodialysis today (12/12), with plan to hold hemodialysis over the weekend and reassess on Saturday IV Lasix, patient was received 80 mg every 12 hours, to be discontinued - Per nephrology this is okay for now however will need to resume with urine output tapers Continue to monitor patient's urine output # Acute aspiration at night as secondary to acute aspiration during upper endoscopy most likely secondary to gastric outlet obstruction secondary to non- Hodgkin's lymphoma based on the pathology from stomach biopsies Patient on meropenem 1 g daily, day 11 after starting meropenem Patient had been on IV Zosyn and vancomycin have been discontinued Has received 14 days total of antibiotics, combined Zosyn, vancomycin, meropenem # Weight loss secondary to non-Hodgkin's lymphoma Patient had noted 22 pound weight loss for the past 4 months Biopsy-proven high-grade non-Hodgkin's diffuse large B-cell lymphoma Patient had port placement in regards to future treatment, deferring to medical oncology management, who states the left the patient follow-up in the clinic to determine course of treatment Per oncology team, upon review of the pathology there is no lymphoma present instead he was deemed to be ischemic colitis with necrosis; possibly attributing the weight loss to gastric outlet obstruction as opposed to lymphoma # 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 Patient had port placement in regards to future treatment, deferring to medical oncology management, who states the left the patient follow-up in the clinic to determine course of treatment Per oncology team, upon review of the pathology there is no lymphoma presents that he was deemed to have ischemic colitis with necrosis # Anemia Patient's Hgb this morning 6.6; patient receiving 1 unit today Continue to monitor patient's Hgb daily If Hgb drops below 7, transfuse # Acute peritonitis secondary to status post J-tube placement 11/16/2023 # Septic shock secondary to status post J-tube placement 11/16/2023 GI prophylaxis: Protonix 40 mg twice daily Nutrition: TPN has been stopped, he is now receiving Nepro 50 mL per hour Continue to monitor vital signs, monitor CBC, monitor CMP Continue telemetry monitoring. Continue with symptomatic treatment Resume home medication Further condition as per the clinical course of the patient Dictation was produced using [employer] dictation software. please excuse any grammatical, word or spelling errors. Objective - Vital Signs Vital signs: Vital Signs Temp 100 F H 12/13/23 00:00 Pulse 94 12/13/23 07:00 Resp 26 H 12/13/23 07:00 BP 114/76 12/13/23 07:00 Pulse Ox 98 12/13/23 07:00 FiO2 30 12/13/23 08:03 Intake & Output 12/12/23 12/13/23 12/13/23 18:59 06:59 18:59 Intake Total 1421 796 63 Output Total 1750 1420 50 Balance -329 -624 13 Weight 105.2 kg 104.5 kg Intake: IV 973 166 13 0.9 KVO 220 130 10 Normal Saline Pressure 33 36 3 Saline TPN 720 Tube Feeding 418 540 50 Other 30 90 Output: Drainage 280 170 Right Abdomen 280 170 Urine 1470 1250 50 Other: Voiding Method Indwelling Catheter Indwelling Catheter ABP, PAP, CO, CI - Last Documented Arterial Blood Pressure 125/72 - Labs CBC & Chem 7: 12/13/23 05:12 12/13/23 05:12 Labs: Abnormal Lab Results - Last 24 Hours (Table) 12/12/23 12/12/23 12/13/23 Range/Units 12:22 17:58 00:14 WBC (3.8-10.6) k/uL RBC (4.30-5.90) m/uL Hgb (13.0-17.5) gm/dL Hct (39.0-53.0) % RDW (11.5-15.5) % Neutrophils # (1.3-7.7) k/uL ABG pH (7.35-7.45) ABG HCO3 (21-25) mmol/L ABG Total CO2 (19-24) mmol/L ABG O2 Saturation (94-97) % Hemoglobin (13.0-17.5) gm/dL Sodium (137-145) mmol/L BUN (9-20) mg/dL Creatinine (0.66-1.25) mg/dL Glucose (74-99) mg/dL POC Glucose (mg/dL) 256 H 132 H 192 H (70-110) mg/dL Calcium (8.4-10.2) mg/dL Phosphorus (2.5-4.5) mg/dL 12/13/23 12/13/23 12/13/23 Range/Units 05:10 05:12 05:12 WBC 17.3 H (3.8-10.6) k/uL RBC 2.91 L (4.30-5.90) m/uL Hgb 8.0 L (13.0-17.5) gm/dL Hct 25.3 L (39.0-53.0) % RDW 19.4 H (11.5-15.5) % Neutrophils # 15.4 H (1.3-7.7) k/uL ABG pH (7.35-7.45) ABG HCO3 (21-25) mmol/L ABG Total CO2 (19-24) mmol/L ABG O2 Saturation (94-97) % Hemoglobin (13.0-17.5) gm/dL Sodium 136 L (137-145) mmol/L BUN 116 H* (9-20) mg/dL Creatinine 3.17 H (0.66-1.25) mg/dL Glucose 204 H (74-99) mg/dL POC Glucose (mg/dL) 218 H (70-110) mg/dL Calcium 7.3 L (8.4-10.2) mg/dL Phosphorus 5.2 H (2.5-4.5) mg/dL 12/13/23 Range/Units 05:58 WBC (3.8-10.6) k/uL RBC (4.30-5.90) m/uL Hgb (13.0-17.5) gm/dL Hct (39.0-53.0) % RDW (11.5-15.5) % Neutrophils # (1.3-7.7) k/uL ABG pH 7.48 H (7.35-7.45) ABG HCO3 27 H (21-25) mmol/L ABG Total CO2 28 H (19-24) mmol/L ABG O2 Saturation 97.5 H (94-97) % Hemoglobin 8.2 L (13.0-17.5) gm/dL Sodium (137-145) mmol/L BUN (9-20) mg/dL Creatinine (0.66-1.25) mg/dL Glucose (74-99) mg/dL POC Glucose (mg/dL) (70-110) mg/dL Calcium (8.4-10.2) mg/dL Phosphorus (2.5-4.5) mg/dL
[2023-12-13] MEDS: ALTEPLASE 2 MG VIAL (CATHFLO) IV STA (10:49)
--- NOTE | 2023-12-13 11:46 | P.PN ---
Subjective Progress Note Date: 12/13/23 CHIEF COMPLAINT: Abdominal pain HISTORY OF PRESENT ILLNESS: Patient remains in the ICU on mechanical vent ilation. He is status post tracheostomy placement. Tube feeds are currently at 50 mL/h. Patient is tolerating tube feeds. NG tube discontinued yesterday. TPN has been weaned off. Patient did have a fever of 101 yesterday. Mildly tachycardic. WBC is same at 17.3 Hgb 8.0. RAYA drain 80 mL output PHYSICAL EXAM: VITAL SIGNS: Reviewed. GENERAL: no acute distress. HEENT: Tracheostomy site clean dry and intact ABDOMEN: Soft. Midline incision with serous drainage. J-tube in place. RAYA drain in place ASSESSMENT: 1. 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 Status post J-tube placement and revision for small bowel obstruction PLAN: -Keep patient strict n.p.o. -Do not place medications down J-tube -Continue tube feeds -Continue ICU management -Continue supportive care Physician Supervisor M[employer] note has been reviewed by physician. Signing provider agrees with the documented findings, assessment, and plan of care. Attestation Patient seen and examined at bedside. Appears to be tolerating tube feeding at goal. Tolerating being vented on trach. Continue ICU management. Zachary Ruiz, Objective - Vital Signs Vital signs: Vital Signs Temp 98.4 F 12/13/23 08:00 Pulse 105 H 12/13/23 11:26 Resp 36 H 12/13/23 11:26 BP 119/79 12/13/23 10:00 Pulse Ox 99 12/13/23 10:00 FiO2 30 12/13/23 11:22 Intake & Output 12/12/23 12/13/23 12/13/23 18:59 06:59 18:59 Intake Total 1421 796 102 Output Total 1750 1420 425 Balance -329 -624 -323 Weight 105.2 kg 104.5 kg 104.5 kg Intake: IV 973 166 52 0.9 KVO 220 130 40 Normal Saline Pressure 33 36 12 Saline TPN 720 Tube Feeding 418 540 50 Other 30 90 Output: Drainage 280 170 Right Abdomen 280 170 Urine 1470 1250 425 Other: Voiding Method Indwelling Catheter Indwelling Catheter Indwelling Catheter ABP, PAP, CO, CI - Last Documented Arterial Blood Pressure 150/147 - Labs CBC & Chem 7: 12/13/23 05:12 10/11/24 05:12 Labs: Abnormal Lab Results - Last 24 Hours (Table) 12/12/23 12/12/23 12/13/23 Range/Units 12:22 17:58 00:14 WBC (3.8-10.6) k/uL RBC (4.30-5.90) m/uL Hgb (13.0-17.5) gm/dL Hct (39.0-53.0) % RDW (11.5-15.5) % Neutrophils # (1.3-7.7) k/uL ABG pH (7.35-7.45) ABG HCO3 (21-25) mmol/L ABG Total CO2 (19-24) mmol/L ABG O2 Saturation (94-97) % Hemoglobin (13.0-17.5) gm/dL Sodium (137-145) mmol/L BUN (9-20) mg/dL Creatinine (0.66-1.25) mg/dL Glucose (74-99) mg/dL POC Glucose (mg/dL) 256 H 132 H 192 H (70-110) mg/dL Calcium (8.4-10.2) mg/dL Phosphorus (2.5-4.5) mg/dL 12/13/23 12/13/23 12/13/23 Range/Units 05:10 05:12 05:12 WBC 17.3 H (3.8-10.6) k/uL RBC 2.91 L (4.30-5.90) m/uL Hgb 8.0 L (13.0-17.5) gm/dL Hct 25.3 L (39.0-53.0) % RDW 19.4 H (11.5-15.5) % Neutrophils # 15.4 H (1.3-7.7) k/uL ABG pH (7.35-7.45) ABG HCO3 (21-25) mmol/L ABG Total CO2 (19-24) mmol/L ABG O2 Saturation (94-97) % Hemoglobin (13.0-17.5) gm/dL Sodium 136 L (137-145) mmol/L BUN 116 H* (9-20) mg/dL Creatinine 3.17 H (0.66-1.25) mg/dL Glucose 204 H (74-99) mg/dL POC Glucose (mg/dL) 218 H (70-110) mg/dL Calcium 7.3 L (8.4-10.2) mg/dL Phosphorus 5.2 H (2.5-4.5) mg/dL 12/13/23 Range/Units 05:58 WBC (3.8-10.6) k/uL RBC (4.30-5.90) m/uL Hgb (13.0-17.5) gm/dL Hct (39.0-53.0) % RDW (11.5-15.5) % Neutrophils # (1.3-7.7) k/uL ABG pH 7.48 H (7.35-7.45) ABG HCO3 27 H (21-25) mmol/L ABG Total CO2 28 H (19-24) mmol/L ABG O2 Saturation 97.5 H (94-97) % Hemoglobin 8.2 L (13.0-17.5) gm/dL Sodium (137-145) mmol/L BUN (9-20) mg/dL Creatinine (0.66-1.25) mg/dL Glucose (74-99) mg/dL POC Glucose (mg/dL) (70-110) mg/dL Calcium (8.4-10.2) mg/dL Phosphorus (2.5-4.5) mg/dL
[2023-12-13 11:52] LABS: Glucose,Whole Blood 147 mg/dL (70-110)
--- NOTE | 2023-12-13 12:43 | P.PN ---
Subjective Progress Note Date: 12/13/23 I am following-up with patient and he is accompanied with who states he continues to be doing better. She states he is opening his eyes and moving bilateral upper extremities. Objective - Vital Signs Vital signs: Vital Signs Temp 98.8 F 12/13/23 12:00 Pulse 105 H 12/13/23 12:00 Resp 35 H 12/13/23 12:00 BP 122/85 12/13/23 12:00 Pulse Ox 95 12/13/23 12:00 FiO2 30 12/13/23 12:00 Intake & Output 12/12/23 12/13/23 12/13/23 18:59 06:59 18:59 Intake Total 1421 796 128 Output Total 1750 1420 725 Balance -329 -624 -597 Weight 105.2 kg 104.5 kg 104.5 kg Intake: IV 973 166 78 0.9 KVO 220 130 60 Normal Saline Pressure 33 36 18 Saline TPN 720 Tube Feeding 418 540 50 Other 30 90 Output: Drainage 280 170 Right Abdomen 280 170 Urine 1470 1250 725 Other: Voiding Method Indwelling Catheter Indwelling Catheter Indwelling Catheter ABP, PAP, CO, CI - Last Documented Arterial Blood Pressure 143/136 - Exam General: Lying in bed and does not appear in acute distress. Lung: Trach on ventilator. Neuro: Very limited. Severely encephalopathic. Not opening his eyes, following commands or attempting to talk. NO spontaneous movement. - Labs CBC & Chem 7: 12/13/23 05:12 12/13/23 05:12 Labs: Abnormal Lab Results - Last 24 Hours (Table) 12/12/23 12/13/23 12/13/23 Range/Units 17:58 00:14 05:10 WBC (3.8-10.6) k/uL RBC (4.30-5.90) m/uL Hgb (13.0-17.5) gm/dL Hct (39.0-53.0) % RDW (11.5-15.5) % Neutrophils # (1.3-7.7) k/uL ABG pH (7.35-7.45) ABG HCO3 (21-25) mmol/L ABG Total CO2 (19-24) mmol/L ABG O2 Saturation (94-97) % Hemoglobin (13.0-17.5) gm/dL Sodium (137-145) mmol/L BUN (9-20) mg/dL Creatinine (0.66-1.25) mg/dL Glucose (74-99) mg/dL POC Glucose (mg/dL) 132 H 192 H 218 H (70-110) mg/dL Calcium (8.4-10.2) mg/dL Phosphorus (2.5-4.5) mg/dL 12/13/23 12/13/23 12/13/23 Range/Units 05:12 05:12 05:58 WBC 17.3 H (3.8-10.6) k/uL RBC 2.91 L (4.30-5.90) m/uL Hgb 8.0 L (13.0-17.5) gm/dL Hct 25.3 L (39.0-53.0) % RDW 19.4 H (11.5-15.5) % Neutrophils # 15.4 H (1.3-7.7) k/uL ABG pH 7.48 H (7.35-7.45) ABG HCO3 27 H (21-25) mmol/L ABG Total CO2 28 H (19-24) mmol/L ABG O2 Saturation 97.5 H (94-97) % Hemoglobin 8.2 L (13.0-17.5) gm/dL Sodium 136 L (137-145) mmol/L BUN 116 H* (9-20) mg/dL Creatinine 3.17 H (0.66-1.25) mg/dL Glucose 204 H (74-99) mg/dL POC Glucose (mg/dL) (70-110) mg/dL Calcium 7.3 L (8.4-10.2) mg/dL Phosphorus 5.2 H (2.5-4.5) mg/dL 12/13/23 Range/Units 11:50 WBC (3.8-10.6) k/uL RBC (4.30-5.90) m/uL Hgb (13.0-17.5) gm/dL Hct (39.0-53.0) % RDW (11.5-15.5) % Neutrophils # (1.3-7.7) k/uL ABG pH (7.35-7.45) ABG HCO3 (21-25) mmol/L ABG Total CO2 (19-24) mmol/L ABG O2 Saturation (94-97) % Hemoglobin (13.0-17.5) gm/dL Sodium (137-145) mmol/L BUN (9-20) mg/dL Creatinine (0.66-1.25) mg/dL Glucose (74-99) mg/dL POC Glucose (mg/dL) 147 H (70-110) mg/dL Calcium (8.4-10.2) mg/dL Phosphorus (2.5-4.5) mg/dL Assessment and Plan Assessment: * Altered mental status, likely due to toxic metabolic encephalopathy, severe--per family members he is slowly improving. * Aspiration pneumonitis from retained gastric contents * Ventilator dependent respiratory failure s/p Trach on 12/10/2023 * Pulmonary edema * History of small bowel perforation at the site of jejunostomy tube tip with balloon * Acute kidney injury * Acute recurrent atrial fibrillation * Septic shock, recovered Sputum culture is positive for Pseudomonas aeruginosa and Citrobacter freundii * Hypertension * Anemia * Thrombocytopenia, improving Plan: * Stat EEG was performed on 12/08/[address] Hernández: It revealed generalized slowing of severe degree. This is suggestive of generalized cerebral dysfunction as can be seen with toxic metabolic encephalopathy or related to diffuse structural brain about a day. Clinical correlation is recommended. Sporadic, periodic generalized sharp-appearing waves were seen. This may s uggest underlying cortical irritability. No electrographic seizure was recorded. * Therefore, Dr. Hernández, empirically started on Keppra 500 mg daily. * Repeat EEG on 12/12/2023: Is abnormal. The study is limited because of diffuse myogenic artifact. The background slowing is suggestive of severe e ncephalopathy. Otherwise no focal slowing, epileptiform discharges or seizure on the EEG. * CT head performed 12/07/2023 revealed no acute intracranial process. Some atrophy. I personally reviewed CT head agree with the findings. * Patient is generalized weak. Patient has been ICU for extended period of time. At risk for critical illness myopathy. * Recommend I.D. consultation since has worsening of leukocytosis. * For medical management as per critical care and other specialties on board. * Per the he is making slow improvement daily. The plan is discussed with his . Will follow-up with patient sporadically. Dr. Hernández will resume neurology service on 12/16/2023 A.M. Time with Patient: Less than 30
--- NOTE | 2023-12-13 13:50 | P.PN ---
Subjective Progress Note Date: 12/13/23 73-year-old white male with history of chronic abdominal pain for the last 8 months has been treated with Protonix 40 mg daily for the last 3 months with no improvement. Patient had a 22 pound weight loss in the last [address] of the abdomen and pelvis 3 weeks ago showed thickening of the antral wall with pathological adenopathy posterior to the stomach suspicious of neoplasm. Today the patient underwent elective upper endoscopy to evaluate further, patient received IV sedation by anesthesia endoscope was inserted into the mouth, esophagus was intubated without any difficulty there was evidence of large amount of liquid and solid food noted in the stomach suggestive of gastric outlet obstruction. Scope could not be advanced through the pylorus, however in the prepyloric area there was a large superficial ulceration identified with multiple biopsies were done from this area. The body cardia and fundus could not adequately visualize because of large amount of retained food in the stomach . Scope was withdrawn back to the stomach and upon careful examination the mucosa of the antrum body and cardia as well as the fundus appeared normal. Procedure was being performed and biopsies were done patient threw up and subsequently became hypoxic there was clearly evidence of witnessed aspiration anesthesia intubated the patient, procedure was terminated, and the patient was transferred to the ICU, this consult was initiated. Patient is now on assist- control rate of 20 tidal volume 500 FiO2 70% PEEP of 10 ABG is pending, earlier ABG showed profound hypoxia patient is on propofol at 50 mcg/kg/min, next ABG is pending. Chest x-ray showed chronic changes without evidence of acute pulmonary disease. Objective - Vital Signs Vital signs: Vital Signs Temp 98.4 F 12/13/23 08:00 Pulse 96 12/13/23 10:00 Resp 28 H 12/13/23 10:00 BP 119/79 12/13/23 10:00 Pulse Ox 99 12/13/23 10:00 FiO2 30 12/13/23 08:03 Intake & Output 12/12/23 12/13/23 12/13/23 18:59 06:59 18:59 Intake Total 1421 796 102 Output Total 1750 1420 425 Balance -329 -624 -323 Weight 105.2 kg 104.5 kg 104.5 kg Intake: IV 973 166 52 0.9 KVO 220 130 40 Normal Saline Pressure 33 36 12 Saline TPN 720 Tube Feeding 418 540 50 Other 30 90 Output: Drainage 280 170 Right Abdomen 280 170 Urine 1470 1250 425 Other: Voiding Method Indwelling Catheter Indwelling Catheter Indwelling Catheter ABP, PAP, CO, CI - Last Documented Arterial Blood Pressure 150/147 - Labs CBC & Chem 7: 12/13/23 05:12 12/13/23 05:12 Labs: Abnormal Lab Results - Last 24 Hours (Table) 12/12/23 12/12/23 12/13/23 Range/Units 12:22 17:58 00:14 WBC (3.8-10.6) k/uL RBC (4.30-5.90) m/uL Hgb (13.0-17.5) gm/dL Hct (39.0-53.0) % RDW (11.5-15.5) % Neutrophils # (1.3-7.7) k/uL ABG pH (7.35-7.45) ABG HCO3 (21-25) mmol/L ABG Total CO2 (19-24) mmol/L ABG O2 Saturation (94-97) % Hemoglobin (13.0-17.5) gm/dL Sodium (137-145) mmol/L BUN (9-20) mg/dL Creatinine (0.66-1.25) mg/dL Glucose (74-99) mg/dL POC Glucose (mg/dL) 256 H 132 H 192 H (70-110) mg/dL Calcium (8.4-10.2) mg/dL Phosphorus (2.5-4.5) mg/dL 12/13/23 12/13/23 12/13/23 Range/Units 05:10 05:12 05:12 WBC 17.3 H (3.8-10.6) k/uL RBC 2.91 L (4.30-5.90) m/uL Hgb 8.0 L (13.0-17.5) gm/dL Hct 25.3 L (39.0-53.0) % RDW 19.4 H (11.5-15.5) % Neutrophils # 15.4 H (1.3-7.7) k/uL ABG pH (7.35-7.45) ABG HCO3 (21-25) mmol/L ABG Total CO2 (19-24) mmol/L ABG O2 Saturation (94-97) % Hemoglobin (13.0-17.5) gm/dL Sodium 136 L (137-145) mmol/L BUN 116 H* (9-20) mg/dL Creatinine 3.17 H (0.66-1.25) mg/dL Glucose 204 H (74-99) mg/dL POC Glucose (mg/dL) 218 H (70-110) mg/dL Calcium 7.3 L (8.4-10.2) mg/dL Phosphorus 5.2 H (2.5-4.5) mg/dL 12/13/23 Range/Units 05:58 WBC (3.8-10.6) k/uL RBC (4.30-5.90) m/uL Hgb (13.0-17.5) gm/dL Hct (39.0-53.0) % RDW (11.5-15.5) % Neutrophils # (1.3-7.7) k/uL ABG pH 7.48 H (7.35-7.45) ABG HCO3 27 H (21-25) mmol/L ABG Total CO2 28 H (19-24) mmol/L ABG O2 Saturation 97.5 H (94-97) % Hemoglobin 8.2 L (13.0-17.5) gm/dL Sodium (137-145) mmol/L BUN (9-20) mg/dL Creatinine (0.66-1.25) mg/dL Glucose (74-99) mg/dL POC Glucose (mg/dL) (70-110) mg/dL Calcium (8.4-10.2) mg/dL Phosphorus (2.5-4.5) mg/dL Assessment and Plan Assessment: 1. Acute hypoxic respiratory failure requiring intubation mechanical ventilat ion secondary to aspiration during upper endoscopy most likely secondary to gastric outlet obstruction Continue ventilatory support Continue DuoNeb 3 mL elation 4 times daily, Solu-Medrol 40 mg IV daily Continuing to evaluate for placement of a long-term acute care facility 2. Paroxysmal atrial fibrillation - resolved at the moment Normal on telemetry, patient noted to be in A-fib with RVR 3. CRISTAL secondary to sepsis and septic shock Patient receiving hemodialysis since 11/28 Continue to monitor patient's urine output 4. Acute aspiration at night as secondary to acute aspiration during upper endoscopy most likely secondary to gastric outlet obstruction secondary to non- Hodgkin's lymphoma based on the pathology from stomach biopsies Patient had been on IV Zosyn and vancomycin have been discontinued Has received 14 days total of antibiotics, combined Zosyn, vancomycin, meropenem 5. 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
[2023-12-13 17:53] LABS: Glucose,Whole Blood 122 mg/dL (70-110)
[2023-12-13] MEDS: methylPREDNISolone SOD SUCCI 40 MG/ML 1 ML VIAL IV SCH (18:16)
[2023-12-13] MEDS: predniSONE 10 MG TAB PO SCH (19:38)
[2023-12-14 00:39] LABS: Glucose,Whole Blood 208 mg/dL (70-110)
[2023-12-14 03:54] LABS: Anisocytosis Slight; HCT 24.5 % (39.0-53.0); HGB 8.1 gm/dL (13.0-17.5); MCH 28.3 pg (25.0-35.0); MCV 85.7 fL (80.0-100.0); Mean Platelet Volume 9.5; Platelet Count 178 k/uL (150-450); RBC 2.86 m/uL (4.30-5.90); RDW 19.5 % (11.5-15.5); WBC 16.7 k/uL (3.8-10.6)
[2023-12-14 04:46] LABS: African American GFR (CKD) 23 (>60 ml/min/1.73 sqM); Anion Gap 8 mmol/L; Calcium 7.1 mg/dL (8.4-10.2); Carbon Dioxide 24 mmol/L (22-30); Chloride 103 mmol/L (98-107); Glucose 176 mg/dL (74-99); Non-African American GFR(CKD) 20 (>60 ml/min/1.73 sqM); Phosphorus 5.4 mg/dL (2.5-4.5); Potassium 3.9 mmol/L (3.5-5.1); Sodium 135 mmol/L (137-145)
[2023-12-14 05:00] LABS: Blood Urea Nitrogen 106 mg/dL (9-20)
[2023-12-14 05:33] LABS: Glucose,Whole Blood 192 mg/dL (70-110)
[2023-12-14 06:12] LABS: ABG Base Excess 2.2 mmol/L; ABG HCO3 26 mmol/L (21-25); ABG Oxygen Saturation 95.5 % (94-97); ABG PCO2 36 mmHg (35-45); ABG PH 7.47 (7.35-7.45); ABG PO2 76 mmHg (83-108); ABG TCO2 27 mmol/L (19-24); Allen Test Performed? Yes
--- NOTE | 2023-12-14 06:37 | XR ---
EXAMINATION TYPE: XR chest 1V portable DATE OF EXAM: 12/14/2023 COMPARISON: 12/13/2023 HISTORY: History difficulty breathing TECHNIQUE: Single frontal view of the chest is obtained. FINDINGS: There is a endotracheal tube unchanged in position. No change in the right Mediport catheter. Stable right upper lobe opacity, retrocardiac opacity, moderate right pleural effusion and small left effusion. The heart and pulmonary vasculature are within normal limits. The osseous structures are intact IMPRESSION: No change in the acute cardiopulmonary disease. [facility], , 12/14/2023 6:35 AM
[2023-12-14 10:13] LABS: Amorphous Sediment,Urine Rare /hpf; Appearance,Urine Clear (Clear); Bacteria,Urine Rare /hpf; Bilirubin,Urine Negative (Negative); Blood,Urine Small (Negative); Budding Yeast,Urine Few /hpf; Color,Urine Yellow; Glucose,Urine (UA) Negative (Negative); Hyaline Casts,Urine 1 /lpf (0-2); Ketones,Urine Negative (Negative); Leukocyte Esterase,Urine Negative (Negative); Mucus,Urine Rare /hpf; Nitrite,Urine Negative (Negative); Protein,Urine 1+ (Negative); RBC,Urine 3 /hpf (0-5); Specific Gravity,Urine 1.014 (1.001-1.035); Squamous Epithelial Cell,Urine <1 /hpf (0-4); Urobilinogen,Urine <2.0 mg/dL (<2.0); WBC,Urine 6 /hpf (0-5)
--- NOTE | 2023-12-14 10:31 | P.PN ---
Subjective Progress Note Date: 12/14/23 Principal diagnosis: Abdominal pain. This is a 73-year-old white male with history of chronic abdominal pain for the last 8 months has been treated with Protonix 40 mg daily for the last 3 months with no improvement. Patient had a 22 pound weight loss in the last [address] of the abdomen and pelvis 3 weeks ago showed thickening of the antral wall with pathological adenopathy posterior to the stomach suspicious of neoplasm. Today the patient underwent elective upper endoscopy to evaluate further, patient received IV sedation by anesthesia endoscope was inserted into the mouth, esophagus was intubated without any difficulty there was evidence of large amount of liquid and solid food noted in the stomach suggestive of gastric outlet obstruction. Scope could not be advanced through the pylorus, however in the prepyloric area there was a large superficial ulceration identified with multiple biopsies were done from this area. The body cardia and fundus could not adequately visualize because of large amount of retained food in the stomach. Scope was withdrawn back to the stomach and upon careful examination the mucosa of the antrum body and cardia as well as the fundus appeared normal. Procedure was being performed and biopsies were done patient threw up and subsequently became hypoxic there was clearly evidence of witnessed aspiration anesthesia intubated the patient, procedure was terminated, and the patient was transferred to the ICU, this consult was initiated. Patient is now on assist- control rate of 20 tidal volume 500 FiO2 70% PEEP of 10 ABG is pending, earlier ABG showed profound hypoxia patient is on propofol at 50 mcg/kg/min, next ABG is pending. Chest x-ray showed chronic changes without evidence of acute pulmonary disease. Patient was seen and examined today on 11/13/2023, remains in the ICU, intubated mechanically ventilated, on assist-control rate of 20 tidal volume 500 FiO2 50% and PEEP of 10 ABG showed a pO2 of 143 pCO2 47 pH of 7.28 hence PEEP was cut down to 6, and increased rate to 22. Patient is still requiring IV fluid at 100 cc/h/LR. Requiring norepinephrine at 0.08 mcg/kg/min he is also on propofol at 50 mg/kg/min antibiotics arce patient is receiving Zosyn. Chest x-ray is showing worsening infiltrates specially in the left lung. This could be related to aspiration pneumonia. Patient had witnessed aspiration during endoscopy/upper endoscopy.WBC count is 14 hemoglobin 7.6 basic metabolic profile is normal BUN is 26 creatinine 1.57 obviously the patient sustained some acute kidney injury baseline creatinine 0.86 patient had received fluids over the last 24 hours, remains on fluids at 100 cc/h Patient with seen and examined today on 11/14/2023, patient remains in the ICU, intubated and mechanically ventilated. Failed weaning trial yesterday and he became quite agitated and desaturated once he went off propofol. Had to be placed back on assist-control mode of mechanical ventilation and sedation. Today the patient is on assist-control rate of 22 tidal volume 500 FiO2 50% PEEP of 6. ABG showed a pO2 of 123 pCO2 51 pH of 7.32, and I cut down his FiO2 down to 45%, patient is receiving a unit of packed RBCs for hemoglobin of 6.9 today. Patient had an episode of A-fib RVR at 3 AM in the morning, seen by cardiology, and recommended patient goes on amiodarone. Still requiring norepinephrine at 0.05 mg/kg/min, he is on LR at 100 cc/h propofol at 50 mg/kg/min. Remains empirically on Zosyn for aspiration pneumonia. My plan today is transitioning the patient to Precedex, hopefully discontinue propofol, and at least give the patient a decent weaning trial or at least check weaning parameters before we proceed to weaning trial. Chest x-ray continues to show evidence of pneumonia mostly in the left lung and left lower lobe more specifically. Some pulmonary vascular congestion is noted with interstitial edema, small pleural effusion is also noted/left side. WBC count today is 12 hemoglobin 6.9 basic metabolic profile is normal bicarb is 25, BUN is 25 creatinine is improving down to 1.21 from 1.57 yesterday Patient was evaluated today on 11/15/2023, patient remains in the ICU, he was extubated yesterday, and his extubation was relatively uneventful. However the patient continues to have nasogastric tube in place, his pathology report came back showing non-Hodgkin's lymphoma, patient has gastric outlet obstruction, and the recommendation by GI is to consult surgery for a jejunostomy tube which is appropriate. Patient will be seen today by oncology and [facility] In the meantime patient is comfortable, he is on 5 L nasal cannula he has LR running at 100 cc/h, he is remains on Zosyn for aspiration pneumonia remains on amiodarone which was started by cardiology for atrial fibrillation with RVR, presently in sinus rhythm. Cannot switch him to oral because of the fact that remains n.p.o., patient remains on TPN. WBC count is 10.7 hemoglobin 7.5 electrolytes are normal renal profile is normal, creatinine normalized to 0.96 Patient was evaluated today on 11/16/2023, remains in the ICU, on 5 L nasal cannula remains on amiodarone at 0.5 mg/min remains on LR at 100 cc/h, however his chest x-ray is showing some component of interstitial edema or could be findings related to his recent episode of aspiration/aspiration pneumonia, nonetheless the patient seems to be a bit symptomatic, he has intermittent cough and wheezing, I am recommending Lasix 40 mg IV push, cut down his IV fluid to 50 cc/h, continue Zosyn, patient will be placed on DuoNeb updrafts and on Solu- Medrol. Patient is scheduled to have jejunostomy-tube placement today. WBC count is 13 hemoglobin 7.7 basic metabolic profile is normal and renal profile is normal Patient was evaluated today on 11/17/2023, patient underwent uneventful placement of a jejunostomy tube yesterday, in the ICU on 5 L, patient is relatively stable, not in any distress, patient continues to have nasogastric tube in place although he did have a J-tube placed yesterday. Patient was seen by oncology for his non-Hodgkin's lymphoma involving the gastric outlet. Today's x-ray showed evidence of pneumonia/bilateral interstitial infiltrate/edema patient was given a dose of Lasix, I reminded the patient had an aspiration episode which was significant. And he required intubation mechanical ventilation for a few days.WBC count today is 9.1 hemoglobin 7.9 electrolytes are normal renal profile is normal hence I plan to transfer the patient out of the ICU to a cardiac floor. And hopefully discharge planning in the next 2 days for The patient was seen today November 18, 2023 in follow-up in the intensive care unit. He is currently sitting up in bed. Awake and alert in no acute distress. He is maintaining O2 saturations in the 90s on 5 L/min per nasal cannula. Glucose 177. Remains on DuoNeb inhalations and Solu-Medrol. Antibiotics in the form of Zosyn. He has a J-tube in place. He was initiated on vital AF 1.2 at 10 mL an hour with a goal of 82 mL/h The patient is seen today November 19, 2023 in follow-up in the intensive care unit. He is a regular medical floor overflow patient. He is currently sitting up in a chair. Awake and alert in no acute distress. He is maintaining O2 saturations in the 90s on 5 L/min per nasal cannula. No IV fluids. He denies any worsening shortness of breath, cough or congestion. He is having some issues with diarrhea. He remains on Zosyn. He is receiving vital AF at 55 mL/h with a goal of 82 mL/h. Glucose 161. Solu-Medrol, DuoNeb inhalations. The patient is seen today November 20, 2023 in follow-up on the regular medical floor. He is currently up in a chair at the bedside. Awake and alert in no acute distress. Denies any worsening shortness of breath, cough or congestion. He is maintaining O2 saturation in the 90s on 3 L/min per nasal cannula. He continues on Zosyn. Continues on bronchodilators and steroids. White count 12.3. Hemoglobin 9.0. Platelets 258. Glucose 168. He is not tolerating his tube feeds as he has developed diarrhea. C. difficile screen was negative. Abdominal series revealed cardiomegaly with left basilar acute infiltrate and/or atelectasis. Overall nonspecific bowel gas pattern. A small bowel obstruction needs to be considered. Progress note dated November 21, 2023. The patient is seen in room 517. The patient is currently on 3 L of oxygen. He continues on Zosyn. His biggest complaint has been abdominal discomfort and diarrhea. He did have a CT scan of the abdomen and pelvis. Current laboratory data includes a white count of 14.4, hemoglobin 8.8, hematocrit 28.7, and platelet count 229,000. Sodium 139, potassium 4.1, chlorides 103, CO2 30, BUN 42, creatinine 0.94. Glucose is 158. Calcium is 8.5. Progress note dated November 22, 2023. 73-year-old male seen in room 517. He currently is on 2 L of oxygen. Room air saturation was 89%. Chest CT shows bilateral patchy infiltrates. He continues on Zosyn. He is still not taking anything by mouth. No new laboratory data today other than a glucose of 138. Gram stain was negative. Progress note dated November 23, 2023. 73-year-old male seen in room 517. He is resting comfortably without com plaints. He continues on saline at 10 cc an hour, tube feedings with Pivot at 20 cc an hour, Zosyn, and 2 L by nasal cannula. He has had an uneventful night. Laboratory data today includes a white count 14.5, hemoglobin 9.7, hematocrit 31.4, and a platelet count of 242,000. Sodium 138, potassium 3.7, chlorides 106, CO2 26, BUN 39, creatinine 0.95. Glucose is 181. Calcium is 8.5. Sputum sampling was negative. Progress note dated November 24, 2023. 73-year-old male who is seen in room 517. The patient has been having significant abdominal discomfort, and went for a evaluation, ordered by surgery today, to determine whether or not the feeding tube, was in proper position, and whether or not there is anything acutely going on in the abdomen. He had been having diarrhea. He is on 3 L of oxygen. He has been here for 12 days. This is a patient, that had a prior EGD, aspirated, because of gastric outlet obstruction, and was diagnosis of non-Hodgkin's lymphoma. He is currently on Zosyn, DuoNebs, and Solu-Medrol. He has been NPO. Chest x-ray showed a left lower lobe infiltrate. Abdominal x-ray showed multiple air-fluid levels. CT of the abdomen showed multiple dilated small bowel loops, consistent with obstruction, pneumoperitoneum, ascites, and cholelithiasis. White count was 14.1, hemoglobin 8.9, hematocrit 29.5, and platelet count was 255,000. Glucose was 143. 11/25/2023, the patient is being seen in the intensive care unit. The patient is critically ill, n.p.o., he has an NG tube in place. Following the NG tube insertion, there was a total of 2.0 L of output and the patient's J-tube was also draining approximately 200 cc over the past 8 hours. Continues to have abdominal pain which is rather diffuse and the patient has direct abdominal tenderness. CAT scan of the abdomen was noted and was consistent with small bowel obstruction. The patient has a stomach that was inflated and in the same time there were multiple loops of small bowel distended with fluid. This extended to the pelvis. J-tube with contrast nondilated small bowel loops within the mid abdomen. Additional loops of small bowel were seen that was dilated. There was some contrast in the right lower quadrant and contrast was also in the cecum. No transition point was identified. The dilated loops of the bowel appeared to be in the proximal jejunum and distal to the duodenum. General surgery is on the case the patient will be taken to the operating room for another exploratory laparotomy. Noted the CAT scan of the abdomen also showed pneumoperitoneum and small amount of ascites and cholelithiasis. Hemodynamically, the patient is currently on normal saline at rate of 75 cc an hour. He is hypotensive and is going to be started on pressors. He is on 4 L of oxygen by nasal cannula. He also has sustained acute kidney injury. Blood work from today shows a rise in the creatinine which is currently up to 2.5 with a BUN of 57. Serum bicarb is at 14 with an anion gap of 11. The patient WBC count is at 8.2 with a hemoglobin of 12.3 and a platelet count of 188. Chest x- ray from this morning is showing a right-sided port and a stable left lung airspace disease and an NG tube being in place. The patient remains on IV Zosyn. The patient is receiving Dilaudid for pain control. The patient remains on IV Solu-Medrol 60 mg every 6 hours. It was noted that the patient's surgical wound over the port has dehisced and there is some serous drainage and erythema at the incision site. Awake and alert and communicating. Family at the bedside. No apparent signs of respiratory distress at this point. 11/26/2023, the patient is being seen in follow-up. Events from yesterday was noted and the patient was taken to the operating room for exploratory laparotomy. The patient was found to have large amount of free fluid noted in the abdomen and there was significant contamination. There was perforation of the small bowel with the balloon of the previously inserted jejunostomy tube penetrating through the perforation. As such, the tube was removed, abdominal washout was done. Small bowel resection was done and the patient had a nodular jejunostomy tube inserted. Postop, the patient was extubated he was unable to tolerate extubation and the patient was kept intubated on mechanical ventilator and he was brought back to the intensive care unit. He is currently postop day #1 following his small bowel resection. Abdominal surgical wound site is dry c lean and intact. This morning, the patient remains sedated on propofol which is currently running at 35 mcg/kg/min. He is on assist-control mode of mechanical ventilation at rate of 28, tidal volume of 550, FiO2 of 60% with a PEEP of 5. Blood gas from today shows a pH of 7.35 with a pCO2 44 and pO2 of 88. Chest x- ray shows adequate positioning of the orotracheal tube. The patient has a Mediport on the right and a subclavian triple-lumen catheter on the left and the patient has persistent bilateral pleural effusion and infiltrates in lung base bilaterally. Hemodynamically, the patient remains in shock. He has been on high-dose norepinephrine which is currently running at 0.28 mcg/kg/min and the patient is also on vasopressin at 0.03 units an hour. He is IV fluids are in the form of bicarb infusion running at rate of 150 cc an hour. He is in sinus tachycardia. NG tube output has been 250 cc over the past 8 hours and the output from the J-tube is minimal at this point in time. Urine output is quite diminished as the patient has also sustained acute kidney injury. Overall fluid balance is +4.9 L over the past 24 hours. The patient's white cell count of 5.7 with a hemoglobin 9.9 and platelet count of 172. BUN is 72 with a creatinine of 2.8 and sodium levels at 143. The calcium level is at 6.5. LFTs are normal. Triglyceride level is at 315. On 11/27/2023, the patient remains critically ill. Remains intubated and on mechanical ventilator, still awaiting shock which is essentially septic shock. Remains on propofol which is running at 50 mcg/kg/min. Remains on the mechanical ventilator, assist-control mode with rate of 28, tidal volume of 550 with an FiO2 of 60% with a PEEP of 5. Blood gas shows a pH of 7.29 with a pCO2 of 47 and pO2 of 78. The patient had a follow-up chest x-ray that showed lower lobe consolidation slightly worse on the right and the orotracheal tube is in a good location. Urine output is diminished in the order of 5 to 10 cc an hour and the patient is also developing progressive worsening renal function. Remains on normal citrate of 150 cc an hour and the patient was started on TPN which is running at 30 cc an hour. He has a triple-lumen catheter in his left subclavian. Overall fluid balance over the past 24 hours is +3.9 L. Output from the NG tube and the J-tube is minimal. Hemodynamically, he is hypotensive and norepinephrine running at 0.45 mcg/kg/min. Vasopressin is a physiologic dose. He received amiodarone and he remains on maintenance amiodarone of 0.5 mg/min and the patient continues to be in atrial fibrillation and is having episodes of tachycardia. The white cell count is at 13, hemoglobin 9.4 platelet count is pending. The patient's BUN is 83 with a creatinine of 3.7. Sodium is at 140 with a potassium level of 5.5 dropped down to 4.4 as the sample was hemolyzed. LFTs are normal. Abdominal wound is dry clean and intact. RAYA drainage is essentially serous at this point in time. 11/28/2023, the patient is being seen for a follow-up. The patient remains intubated on mechanical ventilator. This morning, the patient tolerated propofol drip running at 50 mcg/kg/min. The patient is on mechanical ventilator assist-control mode with rate of 28, tidal volume of 550, FiO2 55% with a PEEP of 5. Chest x-ray shows stable findings with lower lobe consolidations bilaterally. Blood gas shows a pH of 7.32 with a pCO2 38 and pO2 90. Neuropathy has improved and the patient is producing approximately 30 cc an hour and the overall input output balance is +3.3 L over the past 24 hours. The patient is still on pressors although his pressor requirements have improved since yesterday. He is on norepinephrine which is running at 0.05 mcg/kg/min and vasopressin physiologic dose. Also, the patient on amiodarone drip regarding his chronic ongoing atrial fibrillation. Amiodarone drip is running at 0.5 mg/min. Nevertheless, the rate is under much better control. Noted the patient was given a dose of digoxin 0.5 mg IV yesterday which helped with rate control. Remains on normal citrate of 150 cc an hour. Remains on TPN at 40 cc an hour. Output from the J-tube is fecal. Output from the NG tube is more gastric. Surgical wound site is dry clean and intact. Sputum Gram stain and culture showing Pseudomonas and Citrobacter. Note that the Citrobacter was intermediate resistance to Zosyn. This will be discussed further with infectious disease. Blood cultures are still pending for now. They have negative based on the most recent check. Blood work from today shows WBC count 11.2, hemoglobin 7.9 and platelet count of 46. Sodium is at 140, potassium is at 4.3, chloride is 114 with a bicarb of 18. He has 93 and the creatinine is 4.8. Serum random vancomycin level is at 25.7. On 11/29/2023, the patient is being seen for a follow-up. Remains intubated on the mechanical ventilator. The patient sedated on propofol which is running at 35 mcg/kg/min. Synchronous with mechanical ventilator. On today's evaluation, he is on assist-control mode with rate of 28, tidal volume of 550, FiO2 55% with a PEEP of 5. Chest x-ray shows lower lobe consolidation bilaterally worse on th e right and the orotracheal tube is in good location. The blood gas showed a pH of 7.34 with a pCO2 of 35 and a pO2 of 84. No significant orotracheal secretions. Hemodynamically improved compared to yesterday. In fact, the patient is on minimal norepinephrine that was discontinued earlier this morning. The patient has converted to normal sinus rhythm. Remains on amiodarone at 0.5 mg/min. Overall fluid balance over the past 24 hours is 2.4 L positive. Urine output has been adequate and the patient is currently on IV Lasix. Nevertheless, the patient has developed progressive worsening renal function. Creatinine is up to 5.3 on today's evaluation with a potassium level of 4.4. Serum bicarb is at 18 with an anion gap of 9. WBC count is at 8.1 with a hemoglobin of 7 and a platelet count of 32 which has dropped compared to earlier evaluation. The rest of the coagulation profile was normal from 11/28/2023. Fibrinogen level is slightly elevated. Sputum samples have shown a combination of Citrobacter and Pseudomonas aeruginosa. Based on cultures and sensitivities, the patient will be taken off his IV Zosyn and he will be switched to IV meropenem. Output from the J-tube is fecal. Output from the NG tube is gastric and surgical wound site is dry clean and intact. He is afebrile for now. Hemodynamically, the patient is doing better. He remains on TPN for nutritional support. IV fluids are also running at a rate of 75 cc an hour. Remains on vancomycin. 11/30/2023, the patient is being seen for a follow-up. The patient remains on propofol at 50 mcg/kg/min. Ventilator settings are essentially unchanged. The patient remains on assist-control mode with rate of 18, tidal volume of 400, FiO2 50% with a PEEP of 5. The blood gas showed a pH of 7.37 with a pCO2 of 43 and pO2 of 127. Chest x-ray shows no significant interval change. Patient remains on normal saline at rate of 75 cc an hour and TPN at rate of 35 cc an hour. Fluid balance is positive. Hemodialysis was performed yesterday and the second session of hemodialysis to be done today. The patient's urine output is in the order of 20 to 30 cc an hour. The patient has an NG output of 350 cc for yesterday and the drainage from the J-tube is in the order of 400 cc over the past 24 hours. The blood work shows a WBC count of 10.8, hemoglobin 8.1 and platelet count of 41. Platelet counts are essentially stable and slightly improved compared to yesterday. The sodium level is at 133, potassium is at 4.3, BUN is 93 with a creatinine of 3.6. LFTs are within normal limits. Albumin is down to 2.1. The patient is currently on no pressors. Norepinephrine and vasopressin are both discontinued and the patient remains in normal sinus rhythm. No other significant events overnight. Family has been updated on his condition. Antibiotic coverage is currently with IV meropenem. Vancomycin and Zosyn have been both discontinued. On 12/01/2023, the patient remains sedated on propofol which is running at 25 mcg/kg/min., Comfortable and synchronous mechanical ventilator. The patient remains on assist-control mode rate of 28, tidal volume of 550, FiO2 40% and PEEP of 5. Blood gas shows a pH of 7.49 with a pCO2 of 34 and pO2 of 121. Patient underwent hemodialysis yesterday. No plans for hemodialysis today the patient is producing urine output. Remains on TPN for nutrition support rate of 75 cc an hour. IV fluids are currently at KVO. The chest x-ray from today shows bilateral lower lobe consolidation worse on the right. No significant change in the volume status. The patient continues to have third spacing and edema in all 4 extremities. Nevertheless, urine output is adequate at this point in time and the patient remains on Lasix 80 mg IV every 12 hours. Remains NPO. NG tube and J-tube are both drainage. Output is noted. Remains on IV meropenem. Afebrile. Currently on no pressors. Blood work shows a WBC count of 11.4, hemoglobin of 8.1 and platelet count of 46. Sodium is at 131, potassium level is at 3.7, chloride 101 and bicarb is at 24. BUN is 84 with a creatinine of 3.6. Glucose of 228. LFTs are within normal limits. Patient was reevaluated today on 12/02/23, patient remains in the ICU, patient is familiar to my service, I saw this patient 3 weeks ago. Since then he had a very complicated hospital course, related to his jejunostomy tube dislodging and leaking and picture of abdominal sepsis and worsening pneumonia/ARDS. Patient had to be placed back on mechanical ventilation, and he is now intubated and mechanically ventilated. He is on assist-control rate of 20 tidal volume 550 FiO2 40% PEEP of 5 ABG showed a pO2 of 111 pCO2 38 pH of 7.43 and I cut down his FiO2 to 35% and increase his flow rate from 60-70. Patient remains on TPN at 75 cc/h he is on propofol at 25 mcg/kg/min patient is on Cleviprex which I added today for elevated blood pressure. Receiving Lasix 80 mg every 12 hours is also on Merrem as per infectious disease. Patient is on hemodialysis and being followed by nephrology. Patient required multiple abdominal surgeries since his initial admission. Chest x-ray continues to show worsening pneumonia involving both lungs, right more so than left, I suspect there may be a component of ARDS. His initial presentation was the presentation of aspiration pneumonia to begin with and that was 3 weeks agoWBC count is 10.3 hemoglobin 8.6 sodium 131 potassium 4 chloride 100 bicarb 23 BUN is 111 creatinine 4.02 blood sugar is 248. Albumin is 1.9 Patient was evaluated today on , patient remains in the ICU, intubated and mechanically ventilated. Patient is on assist-control rate of 20 tidal volume 550 FiO2 35% and PEEP of 5 ABG showed a pO2 of 99 pCO2 39 pH of 7.44 patient is undergoing hemodialysis today, and the plan is to remove 2 L. He is remains on propofol at 35 mcg/kg/min, remains on TPN at 75 cc/h. Remains on Merrem. Patient is not requiring any pressors today. Yesterday patient did not tolerate to be off sedation long enough, and today we tried the same sedation interruption, and the patient did not do well post interruption of sedation, became extremely agitated restless, tachycardic, and could not fully assess mental status off sedation. Hence the patient was placed back on AC mode of mechanical ventilation, and the plan is to continue the same supportive care measures. Family updated on his condition and most likely the patient will end up requiring tracheostomy in the next few days.WBC count is 8.5 hemoglobin 8.2 basic metabolic profile is relatively unremarkable BUN is 89 creatinine 3.45 chest x-ray today showed stable chest, suspect some right-sided pleural effusion which would likely improve with hemodialysis/ultrafiltration. X-ray of abdomen showed nonspecific nonobstructive bowel gas pattern Patient was seen today on 12/04/2023, remains in the ICU, intubated mechanically ventilated, on assist-control rate of 20 tidal volume 550 FiO2 35% PEEP of 5 ABG showed a pO2 of 112 pCO2 38 pH of 7.45, hence no changes were made in ventilator settings. Patient is on propofol at 35 mcg/kg/min he is also on IV fluid at KVO TPN at 75 cc/h. Remains on hemodialysis remains on Lasix 80 mg IV push twice daily, remains on Merrem. This x-ray continues to show the same findi ngs/airspace disease in both lungs, not much of a change in the last 2 days, however his oxygenation seems to be improved. WBC count is 7.1 hemoglobin 7.7. Electrolytes are normal, BUN is elevated 77 creatinine 3.32, patient is on hemodialysis. His condition was discussed today with the at bedside, and I do not believe the patient is ready to be weaned or extubated, however he seems to get extremely agitated when he goes off propofol, today I plan to transition propofol to Precedex, give him a trial on Precedex and determine whether the patient becomes more appropriate and at least ready for any weaning trials. Clinically I doubt if this will happen but we will go ahead and try Patient was evaluated today on 12/05/2023, remains in the ICU, intubated mechanically ventilated, not much of a change noted in the last 24 hours. Remains on assist-control of 20 tidal volume 550 FiO2 35% PEEP of 5 ABG showed a pO2 of 90 pCO2 37 pH of 7.48 hence chose not to change any of his ventilator settings. Yesterday the patient failed again trial of weaning, and he was never anywhere near ready to be weaned in spite of placing him on Precedex and off propofol, at 1 point the patient became extremely agitated restless and he was biting on the endotracheal tube could not fully awake the patient and determine improvement in his mental status. Hence patient was placed back on propofol yesterday and he remains on propofol today. He is on propofol at 25 mcg/kg/min he is on TPN at 75 cc/h surgery is considering starting his J-tube feedings today. Remains on hemodialysis remains on Merrem remains on Lasix 80 mg IV push twice daily overall not much of a change his chest x-ray is basically about the same showing bibasilar airspace disease. Today I had a discussion with the regarding the option of tracheostomy extremely reluctant to have it done yet. Said that the patient had multiple complications with previous surgeries and she is afraid that he is going to have another complication with the surgeryWBC count is 10.2 hemoglobin is 8, basic metabolic profile is normal sodium 130 BUN 70 creatinine 2.89 Patient was seen today on 12/06/23, remains in the ICU, intubated mechanically ventilated, his ventilator settings are assist-control rate 20 tidal volume 550 FiO2 35% and PEEP of 5 ABG showed a pO2 of 103 pCO2 36 pH of 7.47 patient opens eyes but does not follow any other instructions. He is now off propofol for the last 24 hours, he is maintained on Precedex at 0.4, TPN at 75 cc/h vital AF at 5 mL/h. Patient remains on Merrem, patient did not receive dialysis today because issues related to occluded dialysis catheter. Nonetheless the patient is making urine, and continues to improve with diuretics. Chest x-ray continues to show bibasilar airspace disease, not much of a international exchange coordinator the last 1 week.WBC count today is 11.8 hemoglobin is 7.9.Basic metabolic profile is normal BUN is 92 creatinine 3.74. Blood sugar is 226. Family is at bedside, considering his overall mental status at this point, not quite ready to start checking weaning parameters, and is not ready for weaning. Nonetheless I plan to keep him on Precedex, and hopefully avoid narcotics and other sedatives. His mentation starts clearing a bit more, then will start trials of weaning parameters and/or weaning trials Patient was seen today on 12/07/2023, remains in the ICU, intubated and mechanically ventilated, on assist-control rate of 20 tidal volume 550 FiO2 35% PEEP of 5 ABG showed a pO2 of 83 pCO2 33 pH of 7.50 hence the tidal volume was cut down to 500. Patient remains off propofol remains off narcotics is only on Precedex for sedation at 0.6 mg/kg/h. He is on norepinephrine at 0.02 TPN at 75 cc/h IV fluid at KVO vital AF at 10 mL/h is also on Merrem. Neurologically I am concerned about this patient neurological status, does not seem to be waking up much, he opens his eyes but does not follow any instructions and spite of sedation hold for quite some time. Hence I am recommending a CT of the brain and multiple recommending a neurological consultation on this patient. WBC count is 18 7 hemoglobin is 8.4, basic metabolic profile is normal BUN is 75 creatinine 2.95, patient is back on dialysis, he had a new hemodialysis catheter placed yesterday by vascular surgery, and he will be restarted back on hemodialysis. CT of the brain done shortly after evaluating the patient showed no acute intracranial process chest x-ray basically about the same, continues to show small left and moderate right basilar infiltrate. Has not changed much over the last 1 week, patient remains on antibiotics. Patient was seen today on 12/08/2023, remains in the ICU, intubated and mechanically ventilated, remains on assist-control rate of 20 tidal volume 500 FiO2 35% PEEP of 5 ABG showed a pO2 of 88 pCO2 37 pH of 7.47 hence no changes were made in ventilator settings. Chest x-ray is showing slight increase in his right-sided pleural effusion, however his oxygenation seems to be about the same, and the patient is responding to Lasix given at 80 mg IV push every 12 hours, he is also doing well with hemodialysis he had 2 L removed yesterday and 2 L the day before. Hence will not recommend thoracentesis at this point. But the pleural effusion will need to be closely monitored. Patient remains off propofol he is on Precedex at 0.6 mcg/kg/h. For the last 2 days, and his mentation is not much different from baseline. Continues to open his eyes and does not follow any other instructions has the patient is clearly not ready for weaning trials or extubation. Brought up the issue of tracheostomy again with the , she is still reluctant to proceed with tracheostomy on him at this point. Patient remains on Merrem, remains on TPN but his enteral feeding will be advanced today to full goal, and if that happens then we will can discontinue TPN. Patient is receiving vital AF 1.2@10 mL/h at this point.WBC count is 19.3 hemoglobin 7.6. Basic metabolic profile is normal BUN is 72 creatinine 2.99 blood sugar ranging between 250 up to 334. 12/09/23 - patient seen at bedside today, remaining in the ICU, intubated and mechanically ventilated, remaining on assist-control rate of 20, tidal volume 500, FiO2 30%, PEEP of 5 and oxygen saturation of 100%. Patient is on day 27 of his hospital stay (admitted 11/11), day 15 of this current ICU stay (readmit to the ICU 11/24) and day 15 of this current period of time on the ventilator (placed 11/24). ABG showed pO2 100, pCO2 36, pH 7.47. Chest x-ray was deemed to be stable, however possibly with slight improvement noted on the left with a right-sided pleural effusion remains evident however the patient's oxygenation remains to be about the same. Continue to receive 80 mg IV Lasix every 12 hours and is receiving daily hemodialysis, in which he has been having 2 L removed the past couple of days, hemodialysis yet to occur today. His creatinine is 3.57 (compared to 2.99 yesterday) and BUN 98 (compared to 72 yesterday). Due to this response to diuresis and hemodialysis, no thoracentesis recommended at this point however pleural effusion will need to continue to be monitored. Patient shon off propofol, he is on Precedex at 0.4 mcg/kg/h. Due to his mentation remaining near baseline, neurology had been consulted who ordered an EEG which showed diffuse background slowing of his severe degree which is suggestive for generalized cerebral dysfunction and can be seen with toxic metabolic encephalopathy, as well as the presence of sporadic intermittent, some higher amplitude, sharply contoured waves of generalized distribution. Because of this per neurology's recommendation, patient started on Keppra 500 mg twice daily. The patient does seem to be having some improved mentation, with opening his eyes and responding to commands some of this morning. Spontaneous breathing trial to be attempted today, to see if the patient will be able to come off of mechanical ventilation. If that is unable to occur, discussed with the patient as well as his and one of his daughters that a tracheostomy would be the most appropriate next course of action due to the potential dangers of sustained endotracheal intubation for prolonged period of time. The , while reluctant, seem to acknowledge that this is the appropriate course of action. He remains receiving meropenem 1 g nightly. He remains on TPN 75 mL/h, which she has been on since 11/21 (18), but his enteral feeding has been vital 1.2 AF at 10 mL/h with a goal rate of 80 mL/h. Patient drained 60 mg of serosanguineous fluid from his RAYA. His WBCs increased to 21.5 (compared to 19.3 yesterday), hemoglobin dropped to 7.2 (compared to 7.6 yesterday), hematocrit dropped to 22.0 (compared to 22.9 yesterday) and patient procalcitonin remains elevated at 3.07. 12/10/23 - Patient seen at bedside today, remaining in the ICU, intubated and mechanically ventilated, remaining on assist-control rate of 20, tidal volume 500, FiO2 30%, PEEP of 5 and oxygen saturation of 100%. Patient is on day 28 of his hospital stay (admitted 11/11), day 16 of this current ICU stay (readmit to the ICU 11/24) and day 16 of this current period of time on the ventilator (placed 11/24). ABG showed pO2 93, pCO2 37, pH 7.47, showing evidence of a mild metabolic alkalosis. Chest x-ray today showed stable disease compared to yesterday. He received levo overnight due to atypical blood pressure, patient's TPN was up to 120 due to the change in formula. Patient is scheduled to undergo tracheotomy today (12/09) at 16:30. Per the nurse and the overnight staff patient continues to open his eyes and shows some responsiveness to commands. Per nephrology's recommendation dialysis to be held today due to the patient going for the tracheotomy later, as well as the dip in blood pressure seen after yesterday's dialysis session which required Levophed. Patient's Hgb this morning 6.6, will be given 1 unit today, which will be the second unit he has received during his hospital course. Patient's airway resistance noted to be 3.3 cm/L/s, static lung compliance shown to be 45 mL/cm H2O and dynamic compliance 33 mL/cm H2O. 12/11/23 - Patient seen at the bedside, remaining in the ICU, with a tracheotomy tube and mechanically ventilated while receiving dialysis. Patient remains on assist-control rate of 20, FiO2 30%, PEEP of 5 and has an oxygen saturation of 97%. Patient is on day 29 of the hospital stay (admitted 11/11), day 17 of his current ICU stay (readmitted to the ICU 11/24) and day 17 of his current period of time on the ventilator (placed 11/24). ABG today showed pO2 115, pCO2 38, pH 7.44 continuing to show evidence of a mild metabolic alkalosis. Chest x-ray today showed stable disease. Patient had tracheotomy placed yesterday afternoon (12/09) without any complications. Patient has had 3 consecutive days of attempting spontaneous breathing trials in an effort to wean the patient off the ventilator, all of which failed to this point. Beginning today the patient's antibiotics (meropenem) will be discontinued and we will begin weaning his propofol down from 25 mcg/kg/min. As the patient is weaned off of the propofol, 0.5 Dilaudid and 1 mg IV Ativan to be used every 6 hours as needed. Patient is continuing to receive normal saline 20 cc/h, and has a total of 200 mL of serosanguineous fluid from his RAYA drain. TPN to continue at a rate of 120 mL/h additionally tube feeds, which had been held due to the patient receiving s traight catheter yesterday, will be restarted today with an ultimate goal being to receive enteral nutrition at a rate of 80 mL/h. TPN to continue until able to increase the enteral nutrition to at least 50 mL/h, as per the dietitian's recommendation. Will be exploring the possibility of the patient being moved to select specialty. 12/12/23 - Patient seen at the bedside this morning, in ICU room 253, while receiving and EEG, no significant events overnight. Patient remains with tracheotomy and is mechanically ventilated on assist control with a rate of 20, tidal volume 500, FiO2 30%, PEEP of 5 with an oxygen saturation of 98%. Patient is on day 30 of the hospital stay (admitted 11/11), day 18 of his current ICU stay (readmitted to the ICU 11/24) and day 18 of his current period of time with mechanical ventilation (placed in 11/24). ABG today showed pO2 92, pCO2 36, pH is 7.49 continue to show signs of a combined respiratory and metabolic alkalosis. WBC 17.9, Hgb 7.4, Hct 22.6, PLT 151; sodium 133, potassium 4.0, HCO3 27, BUN 88, creatinine 2.96. Chest x-ray done today continuing to show patchy infiltrate throughout the right lung with layering effusion. Patient is continuing to receive normal saline 20 cc/h, continues to receive Dilaudid 0.5 mg IV push every 6 hours as needed, as well as Ativan 1 mg IV every 6 hours as needed. Patient is no longer maintained on propofol. TPN continues at a rate of 120 mm/h and EN vital AF at 30 mL/h with a goal of 40 mL/h. Once goal is reached, TPN can be discontinued and patient will be switched over to Nepro 50 mL/h. Following the patient having 3 consecutive days of attending spontaneous breathing trials and effort to wean, we will begin trying the patient with CPAP and pressure support in effort to wean, today's trial the patient will be placed on PS 5 and PEEP of 5 for 25-45 minutes, or as he is able to tolerate it. Disc ussed with the patient's the importance of continuing to wean the patient's with trials, in an effort to build up some of the strength in his lungs to better be able to tolerate breathing on his own. Will continue to evaluate for possible placement in a long-term acute care facility. 12/13/23 - Patient seen at the bedside this morning, in ICU room 253, with no significant events overnight noted. Patient remains with tracheotomy and is mechanically ventilated on assist control with a rate of 20, tidal volume 500, FiO2 30%, PEEP of 5 with an oxygen saturation of 98%. Patient is on day 30 one of the hospital stay (admitted to 11/11), day 19 of his current ICU stay (readmitted to the ICU 11/24) and day 19 of his current period of time with mechanical ventilation (placed 11/24). ABG today showed pO2 87, pCO2 36, pH 7.48 continue to show signs of a combined respiratory metabolic alkalosis. WBC 17.3, Hgb 8.0, Hct 25.3, PLT 191; sodium 136, potassium 4.1, BUN 116, creatinine 3.17. This x-ray done today continues to show stable disease. Patient had an EEG completed yesterday (12/11) which showed an abnormal EEG, study being limited because of diffuse myogenic artifact. Background slowing suggestive of severe encephalopathy. Otherwise no appreciable epileptiform discharges, focal slowing, or seizure noted during the exam. Patient continues to receive Dilaudid 0.5 mg IV push every 6 hours as needed, as well as Ativan 1 mg IV every 6 hours as needed. Patient's TPN has been stopped, he is not receiving Nepro at 50 mL/h, which is goal. Patient Solu-Medrol has been discontinued, patient now receiving 30 mg prednisone daily. Patient's trial yesterday with CPAP and pressure support with the patient was sent PS of 5 and PEEP of 5, patient tolerated 40 minutes well it was noted that his respiratory rate increased and his minute ventilation also increased during this time. Will continue with another weaning effort today and continue to reassess how the patient tolerates. He will be receiving hemodialysis today, with the plan to hold over the weekend and then reassess Saturday per nephrology. Additionally IV Lasix has been discontinued on this patient, nephrology did state that he may need to resume receiving the Lasix if the urine output tapers. Progress note dated December 14, 2023. The patient is seen today in room 253. The patient remains on the mechanical v entilator. His settings include volume assist-control, rate 20, tidal volume 500, FiO2 30%, PEEP of 5. Blood gases show pO2 of 76, pCO2 of 36, pH of 7.47. The patient is getting saline at 10 cc an hour, and Nepro at 50 cc an hour which is goal. The patient will go back on pressor support of 5 and CPAP of 5 today. Yesterday, he spent 2-1/2 hours on pressure support. The patient did have a tem perature last night. He discussed some purulent drainage at the wound site. I have asked surgeon to come back and see the patient. In addition, the nurse will get blood, urine, sputum, and wound cultures going. He is not on any antibiotics. We will check a procalcitonin level. White count of 16.7, hemoglobin 8.1, hematocrit 24.5, platelet count is normal. Sodium 135, potassium 3.9, chlorides 103, CO2 24, BUN 106, creatinine 3.04. Calcium is 7.1. Magnesium is 2.0. Urine is yellow, with 1+ protein, 6 WBCs, and rare bacteria. Chest x-ray shows a stable chest x-ray, which is largely unchanged. Objective - Vital Signs Vital signs: Vital Signs Temp 100.1 F H 12/14/23 04:00 Pulse 99 12/14/23 07:56 Resp 20 12/14/23 07:00 BP 92/63 12/14/23 07:00 Pulse Ox 100 12/14/23 07:00 FiO2 30 12/14/23 07:45 Intake & Output 12/13/23 12/14/23 12/14/23 18:59 06:59 18:59 Intake Total 1466 816 73 Output Total 1680 595 50 Balance -214 221 23 Weight 104.5 kg 104.6 kg Intake: IV 156 156 13 0.9 KVO 120 120 10 Normal Saline Pressure 36 36 3 Saline Tube Feeding 600 550 50 Hemodialysis 600 Other 110 110 10 Output: Drainage 120 Right Abdomen 120 Urine 1080 475 50 Hemodialysis 560 Hemodialysis Net Amount 40 Other: Voiding Method Indwelling Catheter Indwelling Catheter ABP, PAP, CO, CI - Last Documented Arterial Blood Pressure 115/69 - Exam No acute distress, somewhat lethargic, in no acute distress, with a midline tracheostomy tube. HEENT examination is grossly unremarkable. Neck supple. Full range of motion. No adenopathy thyromegaly or neck vein distention. Midline tracheostomy tube noted. Cardiovascular examination reveals regular rhythm rate. S1-S2 normal. No S3 or S4. No discernible murmur noted. Lungs reveal mild scattered rhonchi. No wheezes or crackles. Breath sounds equal. Abdomen soft, without bowel sounds. Midline incision, there is for the most part intact, although there is some purulence noted, with some minimal dehiscence Extremities are intact. No cyanosis clubbing or edema. Skin is without rash or lesion. Neurologic examination is difficult to assess. - Labs CBC & Chem 7: 12/14/23 03:34 12/14/23 03:34 Labs: Abnormal Lab Results - Last 24 Hours (Table) 12/13/23 12/13/23 12/14/23 Range/Units 11:50 17:51 00:37 WBC (3.8-10.6) k/uL RBC (4.30-5.90) m/uL Hgb (13.0-17.5) gm/dL Hct (39.0-53.0) % RDW (11.5-15.5) % ABG pH (7.35-7.45) ABG pO2 (83-108) mmHg ABG HCO3 (21-25) mmol/L ABG Total CO2 (19-24) mmol/L Hemoglobin (13.0-17.5) gm/dL Sodium (137-145) mmol/L BUN (9-20) mg/dL Creatinine (0.66-1.25) mg/dL Glucose (74-99) mg/dL POC Glucose (mg/dL) 147 H 122 H 208 H (70-110) mg/dL Calcium (8.4-10.2) mg/dL Phosphorus (2.5-4.5) mg/dL Urine Protein (Negative) Urine Blood (Negative) Urine WBC (0-5) /hpf Amorphous Sediment (None) /hpf Urine Bacteria (None) /hpf Urine Mucus (None) /hpf Urine Yeast (Budding) (None) /hpf 12/14/23 12/14/23 12/14/23 Range/Units 03:34 03:34 05:31 WBC 16.7 H (3.8-10.6) k/uL RBC 2.86 L (4.30-5.90) m/uL Hgb 8.1 L (13.0-17.5) gm/dL Hct 24.5 L (39.0-53.0) % RDW 19.5 H (11.5-15.5) % ABG pH (7.35-7.45) ABG pO2 (83-108) mmHg ABG HCO3 (21-25) mmol/L ABG Total CO2 (19-24) mmol/L Hemoglobin (13.0-17.5) gm/dL Sodium 135 L (137-145) mmol/L BUN 106 H* (9-20) mg/dL Creatinine 3.04 H (0.66-1.25) mg/dL Glucose 176 H (74-99) mg/dL POC Glucose (mg/dL) 192 H (70-110) mg/dL Calcium 7.1 L (8.4-10.2) mg/dL Phosphorus 5.4 H (2.5-4.5) mg/dL Urine Protein (Negative) Urine Blood (Negative) Urine WBC (0-5) /hpf Amorphous Sediment (None) /hpf Urine Bacteria (None) /hpf Urine Mucus (None) /hpf Urine Yeast (Budding) (None) /hpf 12/14/23 12/14/23 Range/Units 06:04 09:24 WBC (3.8-10.6) k/uL RBC (4.30-5.90) m/uL Hgb (13.0-17.5) gm/dL Hct (39.0-53.0) % RDW (11.5-15.5) % ABG pH 7.47 H (7.35-7.45) ABG pO2 76 L (83-108) mmHg ABG HCO3 26 H (21-25) mmol/L ABG Total CO2 27 H (19-24) mmol/L Hemoglobin 7.6 L (13.0-17.5) gm/dL Sodium (137-145) mmol/L BUN (9-20) mg/dL Creatinine (0.66-1.25) mg/dL Glucose (74-99) mg/dL POC Glucose (mg/dL) (70-110) mg/dL Calcium (8.4-10.2) mg/dL Phosphorus (2.5-4.5) mg/dL Urine Protein 1+ H (Negative) Urine Blood Small H (Negative) Urine WBC 6 H (0-5) /hpf Amorphous Sediment Rare H (None) /hpf Urine Bacteria Rare H (None) /hpf Urine Mucus Rare H (None) /hpf Urine Yeast (Budding) Few H (None) /hpf Assessment and Plan Assessment: Acute hypoxemic respiratory failure with failure to wean from mechanical ventilation, status post tracheostomy on December 10, 2023. Respiratory failure, requiring reintubation, on November 25, 2023. Acute hypoxic respiratory failure requiring intubation/mechanical ventilation secondary to aspiration during EGD on 11/12/2023. Patient was extubated on 11/14/2023. Status post J-tube placement 11/16/2023. Septic shock. Acute kidney injury secondary to sepsis, and ATN. Acute bowel obstruction, diagnosed via CT scan, November 24, 2023. Acute aspiration pneumonia. Acute aspiration during upper endoscopy most likely secondary to gastric outlet obstruction secondary to non-Hodgkin's lymphoma. Chronic abdominal pain, secondary to lymphoma. Unexplained weight loss most likely secondary non-Hodgkin's lymphoma involving the stomach. Paroxysmal atrial fibrillation. Chronic anemia. Plan: Plan dated November 21, 2023. The patient is seen today in room 517. The patient is on 3 L of oxygen. He continues on Zosyn. Continues on tube feeds. He had a CT scan of the abdomen and pelvis. His respiratory status is improved. We will continue to follow. Prognosis is guarded. Labs, x-rays, medications are reviewed. The patient is apparently scheduled for an outpatient PET scan. Plan dated November 22, 2023. The patient appears very stable. His is in the room with him. Labs, x- rays, and medications are reviewed. The patient continues on Zosyn. Resting room air saturation was 89%. Chest CT, revealed bilateral patchy and basilar infiltrates. We will continue to follow make recommendations along the way. Prognosis is guarded. The patient was diagnosed with a gastric outlet obstruction, secondary to non-Hodgkin's lymphoma. Plan dated November 23, 2023. The patient is seen today in room 517. He is resting comfortably. He continues on saline at 10 cc an hour. He is getting tube feedings with Pivot at 20 cc an hour. He has been weaned down to 2 L of oxygen. He continues on Zosyn. Labs, x-rays, and all medications are reviewed. Prognosis is guarded. We will continue to follow. Plan dated November 24, 2023. The patient will be admitted to the intensive care unit. I believe he deserves to be an ICU patient. I did speak to the surgeon. Labs, x-rays, and medications are reviewed. No additional recommendations are made. Prognosis is guarded. The patient has now been in the hospital for 12 days. We will continue to follow. He continues on Zosyn. Plan dated December 14, 2023. The patient is seen today in room 253. Currently, the patient is on the ventilator. He will have another PSV/CPAP trial. Apparently yesterday, he went for about 2-1/2 hours before he required to be placed back on the ventilator. The patient is getting saline at 10 cc an hour, and Nepro tube feedings at 50 cc an hour, which is goal. The patient had a fever, and will be recultured. In addition, the midline incision in the abdomen, shows some evidence of purulence, and will have a surgeon, take a look at that. Currently, the patient is not on any antibiotics. We will recheck a procalcitonin level. One of the family members was in the room, and was updated. Time with Patient: Greater than 30
--- NOTE | 2023-12-14 11:44 | P.PN ---
Progress Note - Text Progress Note Date: 12/14/23 CHIEF COMPLAINT: Abdominal pain HISTORY OF PRESENT ILLNESS: NAEO. Tolerating tube feeds at 50 cc/hr. No issues with tracheostomy. Continuing to monitor midline wound dehiscense. Cultures of wound sent by nurse. PHYSICAL EXAM: VITAL SIGNS: Reviewed. GENERAL: no acute distress. HEENT: Tracheostomy site clean dry and intact ABDOMEN: Soft. Midline incision with serous drainage. J-tube in place. RAYA drain in place ASSESSMENT: 1. 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 Status post J-tube placement and revision for small bowel obstruction PLAN: -Keep patient strict n.p.o. -Do not place medications down J-tube -Will continue to monitor midline wound dehiscense. Fascia is intact. -Continue tube feeds -Continue ICU management -Continue supportive care Dick Ewing DO [facility] [phone]
[2023-12-14 12:23] LABS: Glucose,Whole Blood 128 mg/dL (70-110)
--- NOTE | 2023-12-14 12:29 | P.PN ---
Subjective Progress Note Date: 12/14/23 Patient is seen in follow-up for acute kidney injury. Patient underwent exploratory laparotomy with small bowel obstruction NG tube replacement November 25, 2023. Remains off Levophed. Receiving tube feeds. Nonoliguric. Started on hemodialysis November 29, 2023. Status post tracheostomy December 10, 2023. Discussed with at bedside. Vital signs stable. Off vasopressors. General: Resting in bed. HEENT: Tracheostomy noted. LUNGS: Scattered rhonchi. HEART: Regular rate and rhythm. ABDOMEN: No drainage. EXTREMITITES: 1+ edema. Objective - Vital Signs Vital signs: Vital Signs Temp 100.1 F H 12/14/23 04:00 Pulse 99 12/14/23 07:56 Resp 20 12/14/23 07:00 BP 92/63 12/14/23 07:00 Pulse Ox 100 12/14/23 07:00 FiO2 30 12/14/23 07:45 Intake & Output 12/13/23 12/14/23 12/14/23 18:59 06:59 18:59 Intake Total 1466 816 73 Output Total 1680 595 50 Balance -214 221 23 Weight 104.5 kg 104.6 kg Intake: IV 156 156 13 0.9 KVO 120 120 10 Normal Saline Pressure 36 36 3 Saline Tube Feeding 600 550 50 Hemodialysis 600 Other 110 110 10 Output: Drainage 120 Right Abdomen 120 Urine 1080 475 50 Hemodialysis 560 Hemodialysis Net Amount 40 Other: Voiding Method Indwelling Catheter Indwelling Catheter ABP, PAP, CO, CI - Last Documented Arterial Blood Pressure 115/69 - Labs CBC & Chem 7: 12/14/23 03:34 12/14/23 03:34 Labs: Abnormal Lab Results - Last 24 Hours (Table) 12/13/23 12/13/23 12/14/23 Range/Units 11:50 17:51 00:37 WBC (3.8-10.6) k/uL RBC (4.30-5.90) m/uL Hgb (13.0-17.5) gm/dL Hct (39.0-53.0) % RDW (11.5-15.5) % ABG pH (7.35-7.45) ABG pO2 (83-108) mmHg ABG HCO3 (21-25) mmol/L ABG Total CO2 (19-24) mmol/L Hemoglobin (13.0-17.5) gm/dL Sodium (137-145) mmol/L BUN (9-20) mg/dL Creatinine (0.66-1.25) mg/dL Glucose (74-99) mg/dL POC Glucose (mg/dL) 147 H 122 H 208 H (70-110) mg/dL Calcium (8.4-10.2) mg/dL Phosphorus (2.5-4.5) mg/dL 12/14/23 12/14/23 12/14/23 Range/Units 03:34 03:34 05:31 WBC 16.7 H (3.8-10.6) k/uL RBC 2.86 L (4.30-5.90) m/uL Hgb 8.1 L (13.0-17.5) gm/dL Hct 24.5 L (39.0-53.0) % RDW 19.5 H (11.5-15.5) % ABG pH (7.35-7.45) ABG pO2 (83-108) mmHg ABG HCO3 (21-25) mmol/L ABG Total CO2 (19-24) mmol/L Hemoglobin (13.0-17.5) gm/dL Sodium 135 L (137-145) mmol/L BUN 106 H* (9-20) mg/dL Creatinine 3.04 H (0.66-1.25) mg/dL Glucose 176 H (74-99) mg/dL POC Glucose (mg/dL) 192 H (70-110) mg/dL Calcium 7.1 L (8.4-10.2) mg/dL Phosphorus 5.4 H (2.5-4.5) mg/dL 12/14/23 Range/Units 06:04 WBC (3.8-10.6) k/uL RBC (4.30-5.90) m/uL Hgb (13.0-17.5) gm/dL Hct (39.0-53.0) % RDW (11.5-15.5) % ABG pH 7.47 H (7.35-7.45) ABG pO2 76 L (83-108) mmHg ABG HCO3 26 H (21-25) mmol/L ABG Total CO2 27 H (19-24) mmol/L Hemoglobin 7.6 L (13.0-17.5) gm/dL Sodium (137-145) mmol/L BUN (9-20) mg/dL Creatinine (0.66-1.25) mg/dL Glucose (74-99) mg/dL POC Glucose (mg/dL) (70-110) mg/dL Calcium (8.4-10.2) mg/dL Phosphorus (2.5-4.5) mg/dL Assessment and Plan Assessment: 1. Acute kidney injury secondary to ATN secondary to septic shock. Creatinine 0.86 on admission and up to 5.38 dated November 29, 2023. Urine output improved, now nonoliguric. UA fairly benign. No hydronephrosis noted on imaging. Started on hemodialysis November 29, 2023 due to volume overload. Patient initially had a right femoral catheter placed which subsequently became occluded and a left femoral catheter was placed December 06, 2023. Elevated BUN partially due to steroids. 2. Perforated small bowel status post exploratory laparotomy with abdominal washout, small bowel resection and J-tube replacement November 25, 2023. 3. A-fib with RVR. s/p amiodarone drip. Also received digoxin this admission. 4. Recently diagnosed gastric B-cell lymphoma. 5. Septic shock. Likely abdominal source. On IV antibiotics. Off vasopressors now. 6. Hypocalcemia secondary to acute kidney injury. Replaced. Improved. 7. Metabolic acidosis secondary to acute kidney injury. Improved. 8. Volume overload. Improved with diuresis and ultrafiltration. 9. Status post tracheostomy December 10, 2023. 10. Anemia. Component of chronic illness and acute blood loss. Received blood transfusion and DDAVP this admission. On Aranesp. 11. Respiratory alkalosis. Plan: Hemodialysis yesterday Will plan to hold over the and reassess Saturday. IV Lasix discontinued. Will need to resume if urine output tapers. Maintain tube feeds. Avoid nephrotoxins. Preserved EF noted on echocardiogram. Phosphorus level 4.1 dated December 12, 2023. Continue to monitor for renal recovery.
[2023-12-14 18:10] LABS: Glucose,Whole Blood 94 mg/dL (70-110)
--- NOTE | 2023-12-14 21:22 | P.PN ---
Subjective 73-year-old white male with history of chronic abdominal pain for the last 8 months has been treated with Protonix 40 mg daily for the last 3 months with no improvement. Patient had a 22 pound weight loss in the last [address] of the abdomen and pelvis 3 weeks ago showed thickening of the antral wall with pathological adenopathy posterior to the stomach suspicious of neoplasm. Today the patient underwent elective upper endoscopy to evaluate further, patient received IV sedation by anesthesia endoscope was inserted into the mouth, esophagus was intubated without any difficulty there was evidence of large amount of liquid and solid food noted in the stomach suggestive of gastric outlet obstruction. Scope could not be advanced through the pylorus, however in the prepyloric area there was a large superficial ulceration identified with multiple biopsies were done from this area. The body cardia and fundus could not adequately visualize because of large amount of retained food in the stomach. Scope was withdrawn back to the stomach and upon careful examination the mucosa of the antrum body and cardia as well as the fundus appeared normal. Procedure was being performed and biopsies were done patient threw up and subsequently became hypoxic there was clearly evidence of witnessed aspiration anesthesia intubated the patient, procedure was terminated, and the patient was transferred to the ICU, this consult was initiated. Patient is now on assist- control rate of 20 tidal volume 500 FiO2 70% PEEP of 10 ABG is pending, earlier ABG showed profound hypoxia patient is on propofol at 50 mcg/kg/min, next ABG is pending. Chest x-ray showed chronic changes without evidence of acute pulmonary disease. 12/14/2023 Patient remains in the ICU, generally weak Patient s/p tracheostomy G-tube in place Patient still has fever and mild tachycardia but tachycardia is improving, leukocytosis improving as well. Hemoglobin 8.1. Creatinine 3.0 and nephrology team on the case. He has mild transaminitis. He was getting Zosyn which is held now, nowCalcitonin is pending Objective - Vital Signs Vital signs: Vital Signs Temp 100.1 F H 12/14/23 04:00 Pulse 89 12/14/23 07:00 Resp 20 12/14/23 07:00 BP 92/63 12/14/23 07:00 Pulse Ox 100 12/14/23 07:00 FiO2 30 12/14/23 04:00 Intake & Output 12/13/23 12/14/23 12/14/23 18:59 06:59 18:59 Intake Total 1466 816 73 Output Total 1680 595 50 Balance -214 221 23 Weight 104.5 kg 104.6 kg Intake: IV 156 156 13 0.9 KVO 120 120 10 Normal Saline Pressure 36 36 3 Saline Tube Feeding 600 550 50 Hemodialysis 600 Other 110 110 10 Output: Drainage 120 Right Abdomen 120 Urine 1080 475 50 Hemodialysis 560 Hemodialysis Net Amount 40 Other: Voiding Method Indwelling Catheter Indwelling Catheter ABP, PAP, CO, CI - Last Documented Arterial Blood Pressure 115/69 - Exam -GENERAL: The patient is alert and awake, looks tired, not in any acute distress. Well developed, well nourished. Generally weak HEENT: Pupils are round and equally reacting to light. EOMI. No scleral icterus. No conjunctival pallor. Normocephalic, atraumatic. No pharyngeal erythema. No thyromegaly. CARDIOVASCULAR: S1 and S2 present. No murmurs, rubs, or gallops. - PULMONARY: Chest is clear to auscultation, no wheezing , no crackles. Status post tracheostomy tube - ABDOMEN: Soft, nontender, nondistended, normoactive bowel sounds. No palpable organomegaly. S/p J-tube in place MUSCULOSKELETAL: No joint swelling or deformity. EXTREMITIES: No cyanosis, clubbing, or pedal edema. NEUROLOGICAL: Gross neurological examination did not reveal any focal deficits. SKIN: No rashes. no petechiae. - Labs CBC & Chem 7: 12/14/23 03:34 12/14/23 03:34 Labs: Abnormal Lab Results - Last 24 Hours (Table) 12/13/23 12/13/23 12/14/23 Range/Units 11:50 17:51 00:37 WBC (3.8-10.6) k/uL RBC (4.30-5.90) m/uL Hgb (13.0-17.5) gm/dL Hct (39.0-53.0) % RDW (11.5-15.5) % ABG pH (7.35-7.45) ABG pO2 (83-108) mmHg ABG HCO3 (21-25) mmol/L ABG Total CO2 (19-24) mmol/L Hemoglobin (13.0-17.5) gm/dL Sodium (137-145) mmol/L BUN (9-20) mg/dL Creatinine (0.66-1.25) mg/dL Glucose (74-99) mg/dL POC Glucose (mg/dL) 147 H 122 H 208 H (70-110) mg/dL Calcium (8.4-10.2) mg/dL Phosphorus (2.5-4.5) mg/dL 12/14/23 12/14/23 12/14/23 Range/Units 03:34 03:34 05:31 WBC 16.7 H (3.8-10.6) k/uL RBC 2.86 L (4.30-5.90) m/uL Hgb 8.1 L (13.0-17.5) gm/dL Hct 24.5 L (39.0-53.0) % RDW 19.5 H (11.5-15.5) % ABG pH (7.35-7.45) ABG pO2 (83-108) mmHg ABG HCO3 (21-25) mmol/L ABG Total CO2 (19-24) mmol/L Hemoglobin (13.0-17.5) gm/dL Sodium 135 L (137-145) mmol/L BUN 106 H* (9-20) mg/dL Creatinine 3.04 H (0.66-1.25) mg/dL Glucose 176 H (74-99) mg/dL POC Glucose (mg/dL) 192 H (70-110) mg/dL Calcium 7.1 L (8.4-10.2) mg/dL Phosphorus 5.4 H (2.5-4.5) mg/dL 12/14/23 Range/Units 06:04 WBC (3.8-10.6) k/uL RBC (4.30-5.90) m/uL Hgb (13.0-17.5) gm/dL Hct (39.0-53.0) % RDW (11.5-15.5) % ABG pH 7.47 H (7.35-7.45) ABG pO2 76 L (83-108) mmHg ABG HCO3 26 H (21-25) mmol/L ABG Total CO2 27 H (19-24) mmol/L Hemoglobin 7.6 L (13.0-17.5) gm/dL Sodium (137-145) mmol/L BUN (9-20) mg/dL Creatinine (0.66-1.25) mg/dL Glucose (74-99) mg/dL POC Glucose (mg/dL) (70-110) mg/dL Calcium (8.4-10.2) mg/dL Phosphorus (2.5-4.5) mg/dL Assessment and Plan Assessment: 1. Acute hypoxic respiratory failure requiring intubation mechanical ventilation secondary to aspiration during upper endoscopy most likely secondary to gastric outlet obstruction --S/p tracheostomy Continue ventilatory support Continue DuoNeb 3 mL elation 4 times daily, Solu-Medrol 40 mg IV daily Continuing to evaluate for placement of a long-term acute care facility 2. Paroxysmal atrial fibrillation - resolved at the moment Normal on telemetry, patient noted to be in A-fib with RVR 3. CRISTAL secondary to sepsis and septic shock Patient receiving hemodialysis since 11/28 Continue to monitor patient's urine output 4. Acute aspiration at night as secondary to acute aspiration during upper endoscopy most likely secondary to gastric outlet obstruction secondary to non- Hodgkin's lymphoma based on the pathology from stomach biopsies Patient had been on IV Zosyn and vancomycin have been discontinued Has received 14 days total of antibiotics, combined Zosyn, vancomycin, meropenem 5. 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 Patient with fever, leukocytosis, mild tachycardia, patient finished course of IV Zosyn -Continue monitoring, if no improvement in the fever and other parameters then may consider infectious disease consult -Recheck pro- Calcitonin GI prophylaxis: Protonix 40 mg twice daily Nutrition: TPN has been stopped, he is now receiving Nepro 50 mL per hour
[2023-12-14] MEDS: FUROSEMIDE 10 MG/ML 10 ML VIAL IV STA (22:47)
[2023-12-15 00:13] LABS: Glucose,Whole Blood 154 mg/dL (70-110)
[2023-12-15 04:28] LABS: Anisocytosis Slight; Basophils % (A) 0 %; Eosinophils % (A) 0 %; HCT 22.6 % (39.0-53.0); HGB 7.5 gm/dL (13.0-17.5); Hypochromasia Slight; Lymphocytes # (A) 0.7 k/uL (1.0-4.8); Lymphocytes % (A) 4 %; MCH 28.5 pg (25.0-35.0); MCV 86.2 fL (80.0-100.0); Mean Platelet Volume 8.8; Monocytes # (A) 0.7 k/uL (0-1.0); Monocytes % (A) 4 %; Neutrophils # (A) 14.8 k/uL (1.3-7.7); Neutrophils % (A) 91 %; Platelet Count 197 k/uL (150-450); RBC 2.62 m/uL (4.30-5.90); RDW 19.2 % (11.5-15.5); WBC 16.3 k/uL (3.8-10.6)
[2023-12-15 04:36] LABS: African American GFR (CKD) 21 (>60 ml/min/1.73 sqM); Anion Gap 9 mmol/L; Calcium 6.9 mg/dL (8.4-10.2); Carbon Dioxide 24 mmol/L (22-30); Chloride 105 mmol/L (98-107); Glucose 189 mg/dL (74-99); Magnesium 2.1 mg/dL (1.6-2.3); Non-African American GFR(CKD) 18 (>60 ml/min/1.73 sqM); Potassium 3.5 mmol/L (3.5-5.1); Sodium 138 mmol/L (137-145)
[2023-12-15 04:54] LABS: Blood Urea Nitrogen 125 mg/dL (9-20)
[2023-12-15 05:50] LABS: Glucose,Whole Blood 220 mg/dL (70-110)
[2023-12-15 06:09] LABS: ABG Base Excess 1.8 mmol/L; ABG HCO3 26 mmol/L (21-25); ABG Oxygen Saturation 95.8 % (94-97); ABG PCO2 36 mmHg (35-45); ABG PH 7.47 (7.35-7.45); ABG PO2 78 mmHg (83-108); ABG TCO2 27 mmol/L (19-24); Allen Test Performed? Yes
--- NOTE | 2023-12-15 06:34 | XR ---
EXAMINATION TYPE: XR chest 1V portable DATE OF EXAM: 12/15/2023 COMPARISON: 12/14/2023 HISTORY: Ventilation TECHNIQUE: Single frontal view of the chest is obtained. FINDINGS: There is no change in the past the right upper lung and right pleural effusion. There is no change in the small left effusion and retrocardiac opacity. IMPRESSION: No change in the acute cardiopulmonary process. [facility], Workstation: [email or web address] 12/15/2023 6:32 AM
--- NOTE | 2023-12-15 07:33 | P.PN ---
Subjective 73-year-old white male with history of chronic abdominal pain for the last 8 months has been treated with Protonix 40 mg daily for the last 3 months with no improvement. Patient had a 22 pound weight loss in the last [address] of the abdomen and pelvis 3 weeks ago showed thickening of the antral wall with pathological adenopathy posterior to the stomach suspicious of neoplasm. Today the patient underwent elective upper endoscopy to evaluate further, patient received IV sedation by anesthesia endoscope was inserted into the mouth, esophagus was intubated without any difficulty there was evidence of large amount of liquid and solid food noted in the stomach suggestive of gastric outlet obstruction. Scope could not be advanced through the pylorus, however in the prepyloric area there was a large superficial ulceration identified with multiple biopsies were done from this area. The body cardia and fundus could not adequately visualize because of large amount of retained food in the stomach. Scope was withdrawn back to the stomach and upon careful examination the mucosa of the antrum body and cardia as well as the fundus appeared normal. Procedure was being performed and biopsies were done patient threw up and subsequently became hypoxic there was clearly evidence of witnessed aspiration anesthesia intubated the patient, procedure was terminated, and the patient was transferred to the ICU, this consult was initiated. Patient is now on assist- control rate of 20 tidal volume 500 FiO2 70% PEEP of 10 ABG is pending, earlier ABG showed profound hypoxia patient is on propofol at 50 mcg/kg/min, next ABG is pending. Chest x-ray showed chronic changes without evidence of acute pulmonary disease. 12/14/2023 Patient remains in the ICU, generally weak Patient s/p tracheostomy G-tube in place Patient still has fever and mild tachycardia but tachycardia is improving, leukocytosis improving as well. Hemoglobin 8.1. Creatinine 3.0 and nephrology team on the case. He has mild transaminitis. He was getting Zosyn which is held now, nowCalcitonin is pending 12/14 Patient shon in the ICU, he is still encephalopathic and does not follow command. Neurology service following closely. He is status post tracheostomy. Also J-tube His abdomen looks soft and on exam he has mild coarse secretions. Has a Abarca catheter with clear urine His pro- Calcitonin is still high but trending down 3.0 down to 1.9 No fever this morning WBC slightly less at 16.3 Patient currently off antibiotic He is getting steroids IV Solu-Medrol which might contribute to his leukocytosis. Also he is on IV Keppra by neurologist Objective - Vital Signs Vital signs: Vital Signs Temp 99.5 F 12/15/23 04:00 Pulse 96 12/15/23 07:00 Resp 18 12/15/23 07:00 BP 110/67 12/15/23 07:00 Pulse Ox 100 12/15/23 07:00 FiO2 30 12/15/23 05:00 Intake & Output 12/14/23 12/15/23 12/15/23 18:59 06:59 18:59 Intake Total 229 803 73 Output Total 550 875 60 Balance -321 -72 13 Weight 96.4 kg Intake: IV 169 143 13 0.9 KVO 130 110 10 Normal Saline Pressure 39 33 3 Saline Tube Feeding 50 550 50 Other 10 110 10 Output: Drainage 100 120 Right Abdomen 100 120 Urine 450 755 60 Other: Voiding Method Indwelling Catheter Indwelling Catheter # Bowel Movements 1 ABP, PAP, CO, CI - Last Documented Arterial Blood Pressure 143/55 - Exam -GENERAL: The patient is alert and awake, looks tired, not in any acute distress. Well developed, well nourished. Generally weak HEENT: Pupils are round and equally reacting to light. EOMI. No scleral icterus. No conjunctival pallor. Normocephalic, atraumatic. No pharyngeal erythema. No thyromegaly. CARDIOVASCULAR: S1 and S2 present. No murmurs, rubs, or gallops. - PULMONARY: Chest is clear to auscultation, no wheezing , no crackles. Status post tracheostomy tube - ABDOMEN: Soft, nontender, nondistended, normoactive bowel sounds. No palpable organomegaly. S/p J-tube in place MUSCULOSKELETAL: No joint swelling or deformity. EXTREMITIES: No cyanosis, clubbing, or pedal edema. NEUROLOGICAL: Gross neurological examination did not reveal any focal deficits. SKIN: No rashes. no petechiae. - Labs CBC & Chem 7: 12/15/23 04:17 12/15/23 04:17 Labs: Abnormal Lab Results - Last 24 Hours (Table) 12/14/23 12/14/23 12/14/23 Range/Units 03:34 09:24 12:20 WBC (3.8-10.6) k/uL RBC (4.30-5.90) m/uL Hgb (13.0-17.5) gm/dL Hct (39.0-53.0) % RDW (11.5-15.5) % Neutrophils # (1.3-7.7) k/uL Lymphocytes # (1.0-4.8) k/uL ABG pH (7.35-7.45) ABG pO2 (83-108) mmHg ABG HCO3 (21-25) mmol/L ABG Total CO2 (19-24) mmol/L Hemoglobin (13.0-17.5) gm/dL BUN (9-20) mg/dL Creatinine (0.66-1.25) mg/dL Glucose (74-99) mg/dL POC Glucose (mg/dL) 128 H (70-110) mg/dL Calcium (8.4-10.2) mg/dL Procalcitonin 1.92 H (0.02-0.50) ng/mL Urine Protein 1+ H (Negative) Urine Blood Small H (Negative) Urine WBC 6 H (0-5) /hpf Amorphous Sediment Rare H (None) /hpf Urine Bacteria Rare H (None) /hpf Urine Mucus Rare H (None) /hpf Urine Yeast (Budding) Few H (None) /hpf 12/15/23 12/15/23 12/15/23 Range/Units 00:12 04:17 04:17 WBC 16.3 H (3.8-10.6) k/uL RBC 2.62 L (4.30-5.90) m/uL Hgb 7.5 L (13.0-17.5) gm/dL Hct 22.6 L (39.0-53.0) % RDW 19.2 H (11.5-15.5) % Neutrophils # 14.8 H (1.3-7.7) k/uL Lymphocytes # 0.7 L (1.0-4.8) k/uL ABG pH (7.35-7.45) ABG pO2 (83-108) mmHg ABG HCO3 (21-25) mmol/L ABG Total CO2 (19-24) mmol/L Hemoglobin (13.0-17.5) gm/dL BUN 125 H* (9-20) mg/dL Creatinine 3.22 H (0.66-1.25) mg/dL Glucose 189 H (74-99) mg/dL POC Glucose (mg/dL) 154 H (70-110) mg/dL Calcium 6.9 L (8.4-10.2) mg/dL Procalcitonin (0.02-0.50) ng/mL Urine Protein (Negative) Urine Blood (Negative) Urine WBC (0-5) /hpf Amorphous Sediment (None) /hpf Urine Bacteria (None) /hpf Urine Mucus (None) /hpf Urine Yeast (Budding) (None) /hpf 12/15/23 12/15/23 Range/Units 05:49 06:07 WBC (3.8-10.6) k/uL RBC (4.30-5.90) m/uL Hgb (13.0-17.5) gm/dL Hct (39.0-53.0) % RDW (11.5-15.5) % Neutrophils # (1.3-7.7) k/uL Lymphocytes # (1.0-4.8) k/uL ABG pH 7.47 H (7.35-7.45) ABG pO2 78 L (83-108) mmHg ABG HCO3 26 H (21-25) mmol/L ABG Total CO2 27 H (19-24) mmol/L Hemoglobin 7.5 L (13.0-17.5) gm/dL BUN (9-20) mg/dL Creatinine (0.66-1.25) mg/dL Glucose (74-99) mg/dL POC Glucose (mg/dL) 220 H (70-110) mg/dL Calcium (8.4-10.2) mg/dL Procalcitonin (0.02-0.50) ng/mL Urine Protein (Negative) Urine Blood (Negative) Urine WBC (0-5) /hpf Amorphous Sediment (None) /hpf Urine Bacteria (None) /hpf Urine Mucus (None) /hpf Urine Yeast (Budding) (None) /hpf Microbiology - Last 24 Hours (Table) 12/14/23 09:55 Gram Stain - Preliminary Abdomen Assessment and Plan Assessment: 1. Acute hypoxic respiratory failure requiring intubation mechanical ventilation secondary to aspiration during upper endoscopy most likely secondary to gastric outlet obstruction --S/p tracheostomy Continue ventilatory support Continue DuoNeb 3 mL elation 4 times daily, Solu-Medrol 40 mg IV daily Continuing to evaluate for placement of a long-term acute care facility 2. Paroxysmal atrial fibrillation - resolved at the moment Normal on telemetry, patient noted to be in A-fib with RVR 3. CRISTAL secondary to sepsis and septic shock Patient receiving hemodialysis since 11/28 Continue to monitor patient's urine output 4. Acute aspiration at night as secondary to acute aspiration during upper endoscopy most likely secondary to gastric outlet obstruction secondary to non- Hodgkin's lymphoma based on the pathology from stomach biopsies Patient had been on IV Zosyn and vancomycin have been discontinued Has received 14 days total of antibiotics, combined Zosyn, vancomycin, meropenem 5. 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 Patient with fever, leukocytosis, mild tachycardia, patient finished course of IV Zosyn -Continue monitoring, if no improvement in the fever and other parameters then may consider infectious disease consult -Recheck pro- Calcitonin GI prophylaxis: Protonix 40 mg twice daily Nutrition: TPN has been stopped, he is now receiving Nepro 50 mL per hour
[2023-12-15] MEDS: PIPERACILLIN-TAZOBACTAM 3.375 GM in SODIUM CHLORIDE 0.9% 100 ML IVPB SCH (09:19)
--- NOTE | 2023-12-15 10:14 | P.PN ---
Subjective Progress Note Date: 12/15/23 Principal diagnosis: Abdominal pain. This is a 73-year-old white male with history of chronic abdominal pain for the last 8 months has been treated with Protonix 40 mg daily for the last 3 months with no improvement. Patient had a 22 pound weight loss in the last [address] of the abdomen and pelvis 3 weeks ago showed thickening of the antral wall with pathological adenopathy posterior to the stomach suspicious of neoplasm. Today the patient underwent elective upper endoscopy to evaluate further, patient received IV sedation by anesthesia endoscope was inserted into the mouth, esophagus was intubated without any difficulty there was evidence of large amount of liquid and solid food noted in the stomach suggestive of gastric outlet obstruction. Scope could not be advanced through the pylorus, however in the prepyloric area there was a large superficial ulceration identified with multiple biopsies were done from this area. The body cardia and fundus could not adequately visualize because of large amount of retained food in the stomach. Scope was withdrawn back to the stomach and upon careful examination the mucosa of the antrum body and cardia as well as the fundus appeared normal. Procedure was being performed and biopsies were done patient threw up and subsequently became hypoxic there was clearly evidence of witnessed aspiration anesthesia intubated the patient, procedure was terminated, and the patient was transferred to the ICU, this consult was initiated. Patient is now on assist- control rate of 20 tidal volume 500 FiO2 70% PEEP of 10 ABG is pending, earlier ABG showed profound hypoxia patient is on propofol at 50 mcg/kg/min, next ABG is pending. Chest x-ray showed chronic changes without evidence of acute pulmonary disease. Patient was seen and examined today on 11/13/2023, remains in the ICU, intubated mechanically ventilated, on assist-control rate of 20 tidal volume 500 FiO2 50% and PEEP of 10 ABG showed a pO2 of 143 pCO2 47 pH of 7.28 hence PEEP was cut down to 6, and increased rate to 22. Patient is still requiring IV fluid at 100 cc/h/LR. Requiring norepinephrine at 0.08 mcg/kg/min he is also on propofol at 50 mg/kg/min antibiotics arce patient is receiving Zosyn. Chest x-ray is showing worsening infiltrates specially in the left lung. This could be related to aspiration pneumonia. Patient had witnessed aspiration during endoscopy/upper endoscopy.WBC count is 14 hemoglobin 7.6 basic metabolic profile is normal BUN is 26 creatinine 1.57 obviously the patient sustained some acute kidney injury baseline creatinine 0.86 patient had received fluids over the last 24 hours, remains on fluids at 100 cc/h Patient with seen and examined today on 11/14/2023, patient remains in the ICU, intubated and mechanically ventilated. Failed weaning trial yesterday and he became quite agitated and desaturated once he went off propofol. Had to be placed back on assist-control mode of mechanical ventilation and sedation. Today the patient is on assist-control rate of 22 tidal volume 500 FiO2 50% PEEP of 6. ABG showed a pO2 of 123 pCO2 51 pH of 7.32, and I cut down his FiO2 down to 45%, patient is receiving a unit of packed RBCs for hemoglobin of 6.9 today. Patient had an episode of A-fib RVR at 3 AM in the morning, seen by cardiology, and recommended patient goes on amiodarone. Still requiring norepinephrine at 0.05 mg/kg/min, he is on LR at 100 cc/h propofol at 50 mg/kg/min. Remains empirically on Zosyn for aspiration pneumonia. My plan today is transitioning the patient to Precedex, hopefully discontinue propofol, and at least give the patient a decent weaning trial or at least check weaning parameters before we proceed to weaning trial. Chest x-ray continues to show evidence of pneumonia mostly in the left lung and left lower lobe more specifically. Some pulmonary vascular congestion is noted with interstitial edema, small pleural effusion is also noted/left side. WBC count today is 12 hemoglobin 6.9 basic metabolic profile is normal bicarb is 25, BUN is 25 creatinine is improving down to 1.21 from 1.57 yesterday Patient was evaluated today on 11/15/2023, patient remains in the ICU, he was extubated yesterday, and his extubation was relatively uneventful. However the patient continues to have nasogastric tube in place, his pathology report came back showing non-Hodgkin's lymphoma, patient has gastric outlet obstruction, and the recommendation by GI is to consult surgery for a jejunostomy tube which is appropriate. Patient will be seen today by oncology and he will be seen by [facility]. In the meantime patient is comfortable, he is on 5 L nasal cannula he has LR running at 100 cc/h, he is remains on Zosyn for aspiration pneumonia remains on amiodarone which was started by cardiology for atrial fibrillation with RVR, presently in sinus rhythm. Cannot switch him to oral because of the fact that remains n.p.o., patient remains on TPN. WBC count is 10.7 hemoglobin 7.5 electrolytes are normal renal profile is normal, creatinine normalized to 0.96 Patient was evaluated today on 11/16/2023, remains in the ICU, on 5 L nasal cannula remains on amiodarone at 0.5 mg/min remains on LR at 100 cc/h, however his chest x-ray is showing some component of interstitial edema or could be findings related to his recent episode of aspiration/aspiration pneumonia, nonetheless the patient seems to be a bit symptomatic, he has intermittent cough and wheezing, I am recommending Lasix 40 mg IV push, cut down his IV fluid to 50 cc/h, continue Zosyn, patient will be placed on DuoNeb updrafts and on Solu- Medrol. Patient is scheduled to have jejunostomy-tube placement today. WBC count is 13 hemoglobin 7.7 basic metabolic profile is normal and renal profile is normal Patient was evaluated today on 11/17/2023, patient underwent uneventful placement of a jejunostomy tube yesterday, in the ICU on 5 L, patient is relatively stable, not in any distress, patient continues to have nasogastric tube in place although he did have a J-tube placed yesterday. Patient was seen by oncology for his non-Hodgkin's lymphoma involving the gastric outlet. Today's x-ray showed evidence of pneumonia/bilateral interstitial infiltrate/edema patient was given a dose of Lasix, I reminded the patient had an aspiration episode which was significant. And he required intubation mechanical ventilation for a few days.WBC count today is 9.1 hemoglobin 7.9 electrolytes are normal renal profile is normal hence I plan to transfer the patient out of the ICU to a cardiac floor. And hopefully discharge planning in the next 2 days for The patient was seen today November 18, 2023 in follow-up in the intensive care unit. He is currently sitting up in bed. Awake and alert in no acute distress. He is maintaining O2 saturations in the 90s on 5 L/min per nasal cannula. Glucose 177. Remains on DuoNeb inhalations and Solu-Medrol. Antibiotics in the form of Zosyn. He has a J-tube in place. He was initiated on vital AF 1.2 at 10 mL an hour with a goal of 82 mL/h The patient is seen today November 19, 2023 in follow-up in the intensive care unit. He is a regular medical floor overflow patient. He is currently sitting up in a chair. Awake and alert in no acute distress. He is maintaining O2 saturations in the 90s on 5 L/min per nasal cannula. No IV fluids. He denies any worsening shortness of breath, cough or congestion. He is having some issues with diarrhea. He remains on Zosyn. He is receiving vital AF at 55 mL/h with a goal of 82 mL/h. Glucose 161. Solu-Medrol, DuoNeb inhalations. The patient is seen today November 20, 2023 in follow-up on the regular medical floor. He is currently up in a chair at the bedside. Awake and alert in no acute distress. Denies any worsening shortness of breath, cough or congestion. He is maintaining O2 saturation in the 90s on 3 L/min per nasal cannula. He continues on Zosyn. Continues on bronchodilators and steroids. White count 12.3. Hemoglobin 9.0. Platelets 258. Glucose 168. He is not tolerating his tube feeds as he has developed diarrhea. C. difficile screen was negative. Abdominal series revealed cardiomegaly with left basilar acute infiltrate and/or atelectasis. Overall nonspecific bowel gas pattern. A small bowel obstruction needs to be considered. Progress note dated November 21, 2023. The patient is seen in room 517. The patient is currently on 3 L of oxygen. He continues on Zosyn. His biggest complaint has been abdominal discomfort and diarrhea. He did have a CT scan of the abdomen and pelvis. Current laboratory data includes a white count of 14.4, hemoglobin 8.8, hematocrit 28.7, and platelet count 229,000. Sodium 139, potassium 4.1, chlorides 103, CO2 30, BUN 42, creatinine 0.94. Glucose is 158. Calcium is 8.5. Progress note dated November 22, 2023. 73-year-old male seen in room 517. He currently is on 2 L of oxygen. Room air saturation was 89%. Chest CT shows bilateral patchy infiltrates. He continues on Zosyn. He is still not taking anything by mouth. No new laboratory data today other than a glucose of 138. Gram stain was negative. Progress note dated November 23, 2023. 73-year-old male seen in room 517. He is resting comfortably without com plaints. He continues on saline at 10 cc an hour, tube feedings with Pivot at 20 cc an hour, Zosyn, and 2 L by nasal cannula. He has had an uneventful night. Laboratory data today includes a white count 14.5, hemoglobin 9.7, hematocrit 31.4, and a platelet count of 242,000. Sodium 138, potassium 3.7, chlorides 106, CO2 26, BUN 39, creatinine 0.95. Glucose is 181. Calcium is 8.5. Sputum sampling was negative. Progress note dated November 24, 2023. 73-year-old male who is seen in room 517. The patient has been having significant abdominal discomfort, and went for a evaluation, ordered by surgery today, to determine whether or not the feeding tube, was in proper position, and whether or not there is anything acutely going on in the abdomen. He had been having diarrhea. He is on 3 L of oxygen. He has been here for 12 days. This is a patient, that had a prior EGD, aspirated, because of gastric outlet obstruction, and was diagnosis of non-Hodgkin's lymphoma. He is currently on Zosyn, DuoNebs, and Solu-Medrol. He has been NPO. Chest x-ray showed a left lower lobe infiltrate. Abdominal x-ray showed multiple air-fluid levels. CT of the abdomen showed multiple dilated small bowel loops, consistent with obstruction, pneumoperitoneum, ascites, and cholelithiasis. White count was 14.1, hemoglobin 8.9, hematocrit 29.5, and platelet count was 255,000. Glucose was 143. 11/25/2023, the patient is being seen in the intensive care unit. The patient is critically ill, n.p.o., he has an NG tube in place. Following the NG tube insertion, there was a total of 2.0 L of output and the patient's J-tube was also draining approximately 200 cc over the past 8 hours. Continues to have abdominal pain which is rather diffuse and the patient has direct abdominal tenderness. CAT scan of the abdomen was noted and was consistent with small bowel obstruction. The patient has a stomach that was inflated and in the same time there were multiple loops of small bowel distended with fluid. This extended to the pelvis. J-tube with contrast nondilated small bowel loops within the mid abdomen. Additional loops of small bowel were seen that was dilated. There was some contrast in the right lower quadrant and contrast was also in the cecum. No transition point was identified. The dilated loops of the bowel appeared to be in the proximal jejunum and distal to the duodenum. General surgery is on the case the patient will be taken to the operating room for another exploratory laparotomy. Noted the CAT scan of the abdomen also showed pneumoperitoneum and small amount of ascites and cholelithiasis. Hemodynamically, the patient is currently on normal saline at rate of 75 cc an hour. He is hypotensive and is going to be started on pressors. He is on 4 L of oxygen by nasal cannula. He also has sustained acute kidney injury. Blood work from today shows a rise in the creatinine which is currently up to 2.5 with a BUN of 57. Serum bicarb is at 14 with an anion gap of 11. The patient WBC count is at 8.2 with a hemoglobin of 12.3 and a platelet count of 188. Chest x- ray from this morning is showing a right-sided port and a stable left lung airspace disease and an NG tube being in place. The patient remains on IV Zosyn. The patient is receiving Dilaudid for pain control. The patient remains on IV Solu-Medrol 60 mg every 6 hours. It was noted that the patient's surgical wound over the port has dehisced and there is some serous drainage and erythema at the incision site. Awake and alert and communicating. Family at the bedside. No apparent signs of respiratory distress at this point. 11/26/2023, the patient is being seen in follow-up. Events from yesterday was noted and the patient was taken to the operating room for exploratory laparotomy. The patient was found to have large amount of free fluid noted in the abdomen and there was significant contamination. There was perforation of the small bowel with the balloon of the previously inserted jejunostomy tube penetrating through the perforation. As such, the tube was removed, abdominal washout was done. Small bowel resection was done and the patient had a nodular jejunostomy tube inserted. Postop, the patient was extubated he was unable to tolerate extubation and the patient was kept intubated on mechanical ventilator and he was brought back to the intensive care unit. He is currently postop day #1 following his small bowel resection. Abdominal surgical wound site is dry c lean and intact. This morning, the patient remains sedated on propofol which is currently running at 35 mcg/kg/min. He is on assist-control mode of mechanical ventilation at rate of 28, tidal volume of 550, FiO2 of 60% with a PEEP of 5. Blood gas from today shows a pH of 7.35 with a pCO2 44 and pO2 of 88. Chest x- ray shows adequate positioning of the orotracheal tube. The patient has a Mediport on the right and a subclavian triple-lumen catheter on the left and the patient has persistent bilateral pleural effusion and infiltrates in lung base bilaterally. Hemodynamically, the patient remains in shock. He has been on high-dose norepinephrine which is currently running at 0.28 mcg/kg/min and the patient is also on vasopressin at 0.03 units an hour. He is IV fluids are in the form of bicarb infusion running at rate of 150 cc an hour. He is in sinus tachycardia. NG tube output has been 250 cc over the past 8 hours and the output from the J-tube is minimal at this point in time. Urine output is quite diminished as the patient has also sustained acute kidney injury. Overall fluid balance is +4.9 L over the past 24 hours. The patient's white cell count of 5.7 with a hemoglobin 9.9 and platelet count of 172. BUN is 72 with a creatinine of 2.8 and sodium levels at 143. The calcium level is at 6.5. LFTs are normal. Triglyceride level is at 315. On 11/27/2023, the patient remains critically ill. Remains intubated and on mechanical ventilator, still awaiting shock which is essentially septic shock. Remains on propofol which is running at 50 mcg/kg/min. Remains on the mechanical ventilator, assist-control mode with rate of 28, tidal volume of 550 with an FiO2 of 60% with a PEEP of 5. Blood gas shows a pH of 7.29 with a pCO2 of 47 and pO2 of 78. The patient had a follow-up chest x-ray that showed lower lobe consolidation slightly worse on the right and the orotracheal tube is in a good location. Urine output is diminished in the order of 5 to 10 cc an hour and the patient is also developing progressive worsening renal function. Remains on normal citrate of 150 cc an hour and the patient was started on TPN which is running at 30 cc an hour. He has a triple-lumen catheter in his left subclavian. Overall fluid balance over the past 24 hours is +3.9 L. Output from the NG tube and the J-tube is minimal. Hemodynamically, he is hypotensive and norepinephrine running at 0.45 mcg/kg/min. Vasopressin is a physiologic dose. He received amiodarone and he remains on maintenance amiodarone of 0.5 mg/min and the patient continues to be in atrial fibrillation and is having episodes of tachycardia. The white cell count is at 13, hemoglobin 9.4 platelet count is pending. The patient's BUN is 83 with a creatinine of 3.7. Sodium is at 140 with a potassium level of 5.5 dropped down to 4.4 as the sample was hemolyzed. LFTs are normal. Abdominal wound is dry clean and intact. RAYA drainage is essentially serous at this point in time. 11/28/2023, the patient is being seen for a follow-up. The patient remains intubated on mechanical ventilator. This morning, the patient tolerated propofol drip running at 50 mcg/kg/min. The patient is on mechanical ventilator assist-control mode with rate of 28, tidal volume of 550, FiO2 55% with a PEEP of 5. Chest x-ray shows stable findings with lower lobe consolidations bilaterally. Blood gas shows a pH of 7.32 with a pCO2 38 and pO2 90. Neuropathy has improved and the patient is producing approximately 30 cc an hour and the overall input output balance is +3.3 L over the past 24 hours. The patient is still on pressors although his pressor requirements have improved since yesterday. He is on norepinephrine which is running at 0.05 mcg/kg/min and vasopressin physiologic dose. Also, the patient on amiodarone drip regarding his chronic ongoing atrial fibrillation. Amiodarone drip is running at 0.5 mg/min. Nevertheless, the rate is under much better control. Noted the patient was given a dose of digoxin 0.5 mg IV yesterday which helped with rate control. Remains on normal citrate of 150 cc an hour. Remains on TPN at 40 cc an hour. Output from the J-tube is fecal. Output from the NG tube is more gastric. Surgical wound site is dry clean and intact. Sputum Gram stain and culture showing Pseudomonas and Citrobacter. Note that the Citrobacter was intermediate resistance to Zosyn. This will be discussed further with infectious disease. Blood cultures are still pending for now. They have negative based on the most recent check. Blood work from today shows WBC count 11.2, hemoglobin 7.9 and platelet count of 46. Sodium is at 140, potassium is at 4.3, chloride is 114 with a bicarb of 18. He has 93 and the creatinine is 4.8. Serum random vancomycin level is at 25.7. On 11/29/2023, the patient is being seen for a follow-up. Remains intubated on the mechanical ventilator. The patient sedated on propofol which is running at 35 mcg/kg/min. Synchronous with mechanical ventilator. On today's evaluation, he is on assist-control mode with rate of 28, tidal volume of 550, FiO2 55% with a PEEP of 5. Chest x-ray shows lower lobe consolidation bilaterally worse on th e right and the orotracheal tube is in good location. The blood gas showed a pH of 7.34 with a pCO2 of 35 and a pO2 of 84. No significant orotracheal secretions. Hemodynamically improved compared to yesterday. In fact, the patient is on minimal norepinephrine that was discontinued earlier this morning. The patient has converted to normal sinus rhythm. Remains on amiodarone at 0.5 mg/min. Overall fluid balance over the past 24 hours is 2.4 L positive. Urine output has been adequate and the patient is currently on IV Lasix. Nevertheless, the patient has developed progressive worsening renal function. Creatinine is up to 5.3 on today's evaluation with a potassium level of 4.4. Serum bicarb is at 18 with an anion gap of 9. WBC count is at 8.1 with a hemoglobin of 7 and a platelet count of 32 which has dropped compared to earlier evaluation. The rest of the coagulation profile was normal from 11/28/2023. Fibrinogen level is slightly elevated. Sputum samples have shown a combination of Citrobacter and Pseudomonas aeruginosa. Based on cultures and sensitivities, the patient will be taken off his IV Zosyn and he will be switched to IV meropenem. Output from the J-tube is fecal. Output from the NG tube is gastric and surgical wound site is dry clean and intact. He is afebrile for now. Hemodynamically, the patient is doing better. He remains on TPN for nutritional support. IV fluids are also running at a rate of 75 cc an hour. Remains on vancomycin. 11/30/2023, the patient is being seen for a follow-up. The patient remains on propofol at 50 mcg/kg/min. Ventilator settings are essentially unchanged. The patient remains on assist-control mode with rate of 18, tidal volume of 400, FiO2 50% with a PEEP of 5. The blood gas showed a pH of 7.37 with a pCO2 of 43 and pO2 of 127. Chest x-ray shows no significant interval change. Patient remains on normal saline at rate of 75 cc an hour and TPN at rate of 35 cc an hour. Fluid balance is positive. Hemodialysis was performed yesterday and the second session of hemodialysis to be done today. The patient's urine output is in the order of 20 to 30 cc an hour. The patient has an NG output of 350 cc for yesterday and the drainage from the J-tube is in the order of 400 cc over the past 24 hours. The blood work shows a WBC count of 10.8, hemoglobin 8.1 and platelet count of 41. Platelet counts are essentially stable and slightly improved compared to yesterday. The sodium level is at 133, potassium is at 4.3, BUN is 93 with a creatinine of 3.6. LFTs are within normal limits. Albumin is down to 2.1. The patient is currently on no pressors. Norepinephrine and vasopressin are both discontinued and the patient remains in normal sinus rhythm. No other significant events overnight. Family has been updated on his condition. Antibiotic coverage is currently with IV meropenem. Vancomycin and Zosyn have been both discontinued. On 12/01/2023, the patient remains sedated on propofol which is running at 25 mcg/kg/min., Comfortable and synchronous mechanical ventilator. The patient remains on assist-control mode rate of 28, tidal volume of 550, FiO2 40% and PEEP of 5. Blood gas shows a pH of 7.49 with a pCO2 of 34 and pO2 of 121. Patient underwent hemodialysis yesterday. No plans for hemodialysis today the patient is producing urine output. Remains on TPN for nutrition support rate of 75 cc an hour. IV fluids are currently at KVO. The chest x-ray from today shows bilateral lower lobe consolidation worse on the right. No significant change in the volume status. The patient continues to have third spacing and edema in all 4 extremities. Nevertheless, urine output is adequate at this point in time and the patient remains on Lasix 80 mg IV every 12 hours. Remains NPO. NG tube and J-tube are both drainage. Output is noted. Remains on IV meropenem. Afebrile. Currently on no pressors. Blood work shows a WBC count of 11.4, hemoglobin of 8.1 and platelet count of 46. Sodium is at 131, potassium level is at 3.7, chloride 101 and bicarb is at 24. BUN is 84 with a creatinine of 3.6. Glucose of 228. LFTs are within normal limits. Patient was reevaluated today on 12/02/23, patient remains in the ICU, patient is familiar to my service, I saw this patient 3 weeks ago. Since then he had a very complicated hospital course, related to his jejunostomy tube dislodging and leaking and picture of abdominal sepsis and worsening pneumonia/ARDS. Patient had to be placed back on mechanical ventilation, and he is now intubated and mechanically ventilated. He is on assist-control rate of 20 tidal volume 550 FiO2 40% PEEP of 5 ABG showed a pO2 of 111 pCO2 38 pH of 7.43 and I cut down his FiO2 to 35% and increase his flow rate from 60-70. Patient remains on TPN at 75 cc/h he is on propofol at 25 mcg/kg/min patient is on Cleviprex which I added today for elevated blood pressure. Receiving Lasix 80 mg every 12 hours is also on Merrem as per infectious disease. Patient is on hemodialysis and being followed by nephrology. Patient required multiple abdominal surgeries since his initial admission. Chest x-ray continues to show worsening pneumonia involving both lungs, right more so than left, I suspect there may be a component of ARDS. His initial presentation was the presentation of aspiration pneumonia to begin with and that was 3 weeks agoWBC count is 10.3 hemoglobin 8.6 sodium 131 potassium 4 chloride 100 bicarb 23 BUN is 111 creatinine 4.02 blood sugar is 248. Albumin is 1.9 Patient was evaluated today on , patient remains in the ICU, intubated and mechanically ventilated. Patient is on assist-control rate of 20 tidal volume 550 FiO2 35% and PEEP of 5 ABG showed a pO2 of 99 pCO2 39 pH of 7.44 patient is undergoing hemodialysis today, and the plan is to remove 2 L. He is remains on propofol at 35 mcg/kg/min, remains on TPN at 75 cc/h. Remains on Merrem. Patient is not requiring any pressors today. Yesterday patient did not tolerate to be off sedation long enough, and today we tried the same sedation interruption, and the patient did not do well post interruption of sedation, became extremely agitated restless, tachycardic, and could not fully assess mental status off sedation. Hence the patient was placed back on AC mode of mechanical ventilation, and the plan is to continue the same supportive care measures. Family updated on his condition and most likely the patient will end up requiring tracheostomy in the next few days.WBC count is 8.5 hemoglobin 8.2 basic metabolic profile is relatively unremarkable BUN is 89 creatinine 3.45 chest x-ray today showed stable chest, suspect some right-sided pleural effusion which would likely improve with hemodialysis/ultrafiltration. X-ray of abdomen showed nonspecific nonobstructive bowel gas pattern Patient was seen today on 12/04/2023, remains in the ICU, intubated mechanically ventilated, on assist-control rate of 20 tidal volume 550 FiO2 35% PEEP of 5 ABG showed a pO2 of 112 pCO2 38 pH of 7.45, hence no changes were made in ventilator settings. Patient is on propofol at 35 mcg/kg/min he is also on IV fluid at KVO TPN at 75 cc/h. Remains on hemodialysis remains on Lasix 80 mg IV push twice daily, remains on Merrem. This x-ray continues to show the same findi ngs/airspace disease in both lungs, not much of a change in the last 2 days, however his oxygenation seems to be improved. WBC count is 7.1 hemoglobin 7.7. Electrolytes are normal, BUN is elevated 77 creatinine 3.32, patient is on hemodialysis. His condition was discussed today with the at bedside, and I do not believe the patient is ready to be weaned or extubated, however he seems to get extremely agitated when he goes off propofol, today I plan to transition propofol to Precedex, give him a trial on Precedex and determine whether the patient becomes more appropriate and at least ready for any weaning trials. Clinically I doubt if this will happen but we will go ahead and try Patient was evaluated today on 12/05/2023, remains in the ICU, intubated mechanically ventilated, not much of a change noted in the last 24 hours. Remains on assist-control of 20 tidal volume 550 FiO2 35% PEEP of 5 ABG showed a pO2 of 90 pCO2 37 pH of 7.48 hence chose not to change any of his ventilator settings. Yesterday the patient failed again trial of weaning, and he was never anywhere near ready to be weaned in spite of placing him on Precedex and off propofol, at 1 point the patient became extremely agitated restless and he was biting on the endotracheal tube could not fully awake the patient and determine improvement in his mental status. Hence patient was placed back on propofol yesterday and he remains on propofol today. He is on propofol at 25 mcg/kg/min he is on TPN at 75 cc/h surgery is considering starting his J-tube feedings today. Remains on hemodialysis remains on Merrem remains on Lasix 80 mg IV push twice daily overall not much of a change his chest x-ray is basically about the same showing bibasilar airspace disease. Today I had a discussion with the regarding the option of tracheostomy extremely reluctant to have it done yet. Said that the patient had multiple complications with previous surgeries and she is afraid that he is going to have another complication with the surgeryWBC count is 10.2 hemoglobin is 8, basic metabolic profile is normal sodium 130 BUN 70 creatinine 2.89 Patient was seen today on 12/06/23, remains in the ICU, intubated mechanically ventilated, his ventilator settings are assist-control rate 20 tidal volume 550 FiO2 35% and PEEP of 5 ABG showed a pO2 of 103 pCO2 36 pH of 7.47 patient opens eyes but does not follow any other instructions. He is now off propofol for the last 24 hours, he is maintained on Precedex at 0.4, TPN at 75 cc/h vital AF at 5 mL/h. Patient remains on Merrem, patient did not receive dialysis today because issues related to occluded dialysis catheter. Nonetheless the patient is making urine, and continues to improve with diuretics. Chest x-ray continues to show bibasilar airspace disease, not much of a change control manager the last 1 week.WBC count today is 11.8 hemoglobin is 7.9.Basic metabolic profile is normal BUN is 92 creatinine 3.74. Blood sugar is 226. Family is at bedside, considering his overall mental status at this point, not quite ready to start checking weaning parameters, and is not ready for weaning. Nonetheless I plan to keep him on Precedex, and hopefully avoid narcotics and other sedatives. His mentation starts clearing a bit more, then will start trials of weaning parameters and/or weaning trials Patient was seen today on 12/07/2023, remains in the ICU, intubated and mechanically ventilated, on assist-control rate of 20 tidal volume 550 FiO2 35% PEEP of 5 ABG showed a pO2 of 83 pCO2 33 pH of 7.50 hence the tidal volume was cut down to 500. Patient remains off propofol remains off narcotics is only on Precedex for sedation at 0.6 mg/kg/h. He is on norepinephrine at 0.02 TPN at 75 cc/h IV fluid at KVO vital AF at 10 mL/h is also on Merrem. Neurologically I am concerned about this patient neurological status, does not seem to be waking up much, he opens his eyes but does not follow any instructions and spite of sedation hold for quite some time. Hence I am recommending a CT of the brain and multiple recommending a neurological consultation on this patient. WBC count is 18 7 hemoglobin is 8.4, basic metabolic profile is normal BUN is 75 creatinine 2.95, patient is back on dialysis, he had a new hemodialysis catheter placed yesterday by vascular surgery, and he will be restarted back on hemodialysis. CT of the brain done shortly after evaluating the patient showed no acute intracranial process chest x-ray basically about the same, continues to show small left and moderate right basilar infiltrate. Has not changed much over the last 1 week, patient remains on antibiotics. Patient was seen today on 12/08/2023, remains in the ICU, intubated and mechanically ventilated, remains on assist-control rate of 20 tidal volume 500 FiO2 35% PEEP of 5 ABG showed a pO2 of 88 pCO2 37 pH of 7.47 hence no changes were made in ventilator settings. Chest x-ray is showing slight increase in his right-sided pleural effusion, however his oxygenation seems to be about the same, and the patient is responding to Lasix given at 80 mg IV push every 12 hours, he is also doing well with hemodialysis he had 2 L removed yesterday and 2 L the day before. Hence will not recommend thoracentesis at this point. But the pleural effusion will need to be closely monitored. Patient remains off propofol he is on Precedex at 0.6 mcg/kg/h. For the last 2 days, and his mentation is not much different from baseline. Continues to open his eyes and does not follow any other instructions has the patient is clearly not ready for weaning trials or extubation. Brought up the issue of tracheostomy again with the , she is still reluctant to proceed with tracheostomy on him at this point. Patient remains on Merrem, remains on TPN but his enteral feeding will be advanced today to full goal, and if that happens then we will can discontinue TPN. Patient is receiving vital AF 1.2@10 mL/h at this point.WBC count is 19.3 hemoglobin 7.6. Basic metabolic profile is normal BUN is 72 creatinine 2.99 blood sugar ranging between 250 up to 334. 12/09/23 - patient seen at bedside today, remaining in the ICU, intubated and mechanically ventilated, remaining on assist-control rate of 20, tidal volume 500, FiO2 30%, PEEP of 5 and oxygen saturation of 100%. Patient is on day 27 of his hospital stay (admitted 11/11), day 15 of this current ICU stay (readmit to the ICU 11/24) and day 15 of this current period of time on the ventilator (placed 11/24). ABG showed pO2 100, pCO2 36, pH 7.47. Chest x-ray was deemed to be stable, however possibly with slight improvement noted on the left with a right-sided pleural effusion remains evident however the patient's oxygenation remains to be about the same. Continue to receive 80 mg IV Lasix every 12 hours and is receiving daily hemodialysis, in which he has been having 2 L removed the past couple of days, hemodialysis yet to occur today. His creatinine is 3.57 (compared to 2.99 yesterday) and BUN 98 (compared to 72 yesterday). Due to this response to diuresis and hemodialysis, no thoracentesis recommended at this point however pleural effusion will need to continue to be monitored. Patient shon off propofol, he is on Precedex at 0.4 mcg/kg/h. Due to his mentation remaining near baseline, neurology had been consulted who ordered an EEG which showed diffuse background slowing of his severe degree which is suggestive for generalized cerebral dysfunction and can be seen with toxic metabolic encephalopathy, as well as the presence of sporadic intermittent, some higher amplitude, sharply contoured waves of generalized distribution. Because of this per neurology's recommendation, patient started on Keppra 500 mg twice daily. The patient does seem to be having some improved mentation, with opening his eyes and responding to commands some of this morning. Spontaneous breathing trial to be attempted today, to see if the patient will be able to come off of mechanical ventilation. If that is unable to occur, discussed with the patient as well as his and one of his daughters that a tracheostomy would be the most appropriate next course of action due to the potential dangers of sustained endotracheal intubation for prolonged period of time. The , while reluctant, seem to acknowledge that this is the appropriate course of action. He remains receiving meropenem 1 g nightly. He remains on TPN 75 mL/h, which she has been on since 11/21 (18), but his enteral feeding has been vital 1.2 AF at 10 mL/h with a goal rate of 80 mL/h. Patient drained 60 mg of serosanguineous fluid from his RAYA. His WBCs increased to 21.5 (compared to 19.3 yesterday), hemoglobin dropped to 7.2 (compared to 7.6 yesterday), hematocrit dropped to 22.0 (compared to 22.9 yesterday) and patient procalcitonin remains elevated at 3.07. 12/10/23 - Patient seen at bedside today, remaining in the ICU, intubated and mechanically ventilated, remaining on assist-control rate of 20, tidal volume 500, FiO2 30%, PEEP of 5 and oxygen saturation of 100%. Patient is on day 28 of his hospital stay (admitted 11/11), day 16 of this current ICU stay (readmit to the ICU 11/24) and day 16 of this current period of time on the ventilator (placed 11/24). ABG showed pO2 93, pCO2 37, pH 7.47, showing evidence of a mild metabolic alkalosis. Chest x-ray today showed stable disease compared to yesterday. He received levo overnight due to atypical blood pressure, patient's TPN was up to 120 due to the change in formula. Patient is scheduled to undergo tracheotomy today (12/09) at 16:30. Per the nurse and the overnight staff patient continues to open his eyes and shows some responsiveness to commands. Per nephrology's recommendation dialysis to be held today due to the patient going for the tracheotomy later, as well as the dip in blood pressure seen after yesterday's dialysis session which required Levophed. Patient's Hgb this morning 6.6, will be given 1 unit today, which will be the second unit he has received during his hospital course. Patient's airway resistance noted to be 3.3 cm/L/s, static lung compliance shown to be 45 mL/cm H2O and dynamic compliance 33 mL/cm H2O. 12/11/23 - Patient seen at the bedside, remaining in the ICU, with a tracheotomy tube and mechanically ventilated while receiving dialysis. Patient remains on assist-control rate of 20, FiO2 30%, PEEP of 5 and has an oxygen saturation of 97%. Patient is on day 29 of the hospital stay (admitted 11/11), day 17 of his current ICU stay (readmitted to the ICU 11/24) and day 17 of his current period of time on the ventilator (placed 11/24). ABG today showed pO2 115, pCO2 38, pH 7.44 continuing to show evidence of a mild metabolic alkalosis. Chest x-ray today showed stable disease. Patient had tracheotomy placed yesterday afternoon (12/09) without any complications. Patient has had 3 consecutive days of attempting spontaneous breathing trials in an effort to wean the patient off the ventilator, all of which failed to this point. Beginning today the patient's antibiotics (meropenem) will be discontinued and we will begin weaning his propofol down from 25 mcg/kg/min. As the patient is weaned off of the propofol, 0.5 Dilaudid and 1 mg IV Ativan to be used every 6 hours as needed. Patient is continuing to receive normal saline 20 cc/h, and has a total of 200 mL of serosanguineous fluid from his RAYA drain. TPN to continue at a rate of 120 mL/h additionally tube feeds, which had been held due to the patient receiving s traight catheter yesterday, will be restarted today with an ultimate goal being to receive enteral nutrition at a rate of 80 mL/h. TPN to continue until able to increase the enteral nutrition to at least 50 mL/h, as per the dietitian's recommendation. Will be exploring the possibility of the patient being moved to select specialty. 12/12/23 - Patient seen at the bedside this morning, in ICU room 253, while receiving and EEG, no significant events overnight. Patient remains with tracheotomy and is mechanically ventilated on assist control with a rate of 20, tidal volume 500, FiO2 30%, PEEP of 5 with an oxygen saturation of 98%. Patient is on day 30 of the hospital stay (admitted 11/11), day 18 of his current ICU stay (readmitted to the ICU 11/24) and day 18 of his current period of time with mechanical ventilation (placed in 11/24). ABG today showed pO2 92, pCO2 36, pH is 7.49 continue to show signs of a combined respiratory and metabolic alkalosis. WBC 17.9, Hgb 7.4, Hct 22.6, PLT 151; sodium 133, potassium 4.0, HCO3 27, BUN 88, creatinine 2.96. Chest x-ray done today continuing to show patchy infiltrate throughout the right lung with layering effusion. Patient is continuing to receive normal saline 20 cc/h, continues to receive Dilaudid 0.5 mg IV push every 6 hours as needed, as well as Ativan 1 mg IV every 6 hours as needed. Patient is no longer maintained on propofol. TPN continues at a rate of 120 mm/h and EN vital AF at 30 mL/h with a goal of 40 mL/h. Once goal is reached, TPN can be discontinued and patient will be switched over to Nepro 50 mL/h. Following the patient having 3 consecutive days of attending spontaneous breathing trials and effort to wean, we will begin trying the patient with CPAP and pressure support in effort to wean, today's trial the patient will be placed on PS 5 and PEEP of 5 for 25-45 minutes, or as he is able to tolerate it. Disc ussed with the patient's the importance of continuing to wean the patient's with trials, in an effort to build up some of the strength in his lungs to better be able to tolerate breathing on his own. Will continue to evaluate for possible placement in a long-term acute care facility. 12/13/23 - Patient seen at the bedside this morning, in ICU room 253, with no significant events overnight noted. Patient remains with tracheotomy and is mechanically ventilated on assist control with a rate of 20, tidal volume 500, FiO2 30%, PEEP of 5 with an oxygen saturation of 98%. Patient is on day 30 one of the hospital stay (admitted to 11/11), day 19 of his current ICU stay (readmitted to the ICU 11/24) and day 19 of his current period of time with mechanical ventilation (placed 11/24). ABG today showed pO2 87, pCO2 36, pH 7.48 continue to show signs of a combined respiratory metabolic alkalosis. WBC 17.3, Hgb 8.0, Hct 25.3, PLT 191; sodium 136, potassium 4.1, BUN 116, creatinine 3.17. This x-ray done today continues to show stable disease. Patient had an EEG completed yesterday (12/11) which showed an abnormal EEG, study being limited because of diffuse myogenic artifact. Background slowing suggestive of severe encephalopathy. Otherwise no appreciable epileptiform discharges, focal slowing, or seizure noted during the exam. Patient continues to receive Dilaudid 0.5 mg IV push every 6 hours as needed, as well as Ativan 1 mg IV every 6 hours as needed. Patient's TPN has been stopped, he is not receiving Nepro at 50 mL/h, which is goal. Patient Solu-Medrol has been discontinued, patient now receiving 30 mg prednisone daily. Patient's trial yesterday with CPAP and pressure support with the patient was sent PS of 5 and PEEP of 5, patient tolerated 40 minutes well it was noted that his respiratory rate increased and his minute ventilation also increased during this time. Will continue with another weaning effort today and continue to reassess how the patient tolerates. He will be receiving hemodialysis today, with the plan to hold over the weekend and then reassess Saturday per nephrology. Additionally IV Lasix has been discontinued on this patient, nephrology did state that he may need to resume receiving the Lasix if the urine output tapers. Progress note dated December 14, 2023. The patient is seen today in room 253. The patient remains on the mechanical v entilator. His settings include volume assist-control, rate 20, tidal volume 500, FiO2 30%, PEEP of 5. Blood gases show pO2 of 76, pCO2 of 36, pH of 7.47. The patient is getting saline at 10 cc an hour, and Nepro at 50 cc an hour which is goal. The patient will go back on pressor support of 5 and CPAP of 5 today. Yesterday, he spent 2-1/2 hours on pressure support. The patient did have a tem perature last night. He discussed some purulent drainage at the wound site. I have asked surgeon to come back and see the patient. In addition, the nurse will get blood, urine, sputum, and wound cultures going. He is not on any antibiotics. We will check a procalcitonin level. White count of 16.7, hemoglobin 8.1, hematocrit 24.5, platelet count is normal. Sodium 135, potassium 3.9, chlorides 103, CO2 24, BUN 106, creatinine 3.04. Calcium is 7.1. Magnesium is 2.0. Urine is yellow, with 1+ protein, 6 WBCs, and rare bacteria. Chest x-ray shows a stable chest x-ray, which is largely unchanged. Progress note dated December 15, 2023. 73-year-old male seen again in room 253. The patient remains on mechanical ventilator. Blood gases show pO2 of 78, pCO2 of 36, pH of 7.47. The patient is getting saline at KVO, and Nepro at 50 cc an hour which is goal. The patient did a spontaneous breathing trial yesterday, and went about 6 hours on PSV 5, CPAP of 5. The patient's procalcitonin level was elevated at 1.92. We added back Zosyn. Yesterday we did sputum, blood, urine, and wound cultures. The patient will have another spontaneous breathing trial today. Current labs include a white count 16.3, hemoglobin 7.5, hematocrit 22.6, and a normal platelet count. Sodium 138, potassium 3.5, chlorides 105, CO2 24, BUN 125, and creatinine 3.22. Glucose is 220. Calcium is 6.9. Chest x-ray shows a right- sided pleural effusion, and some similar changes, to the previous x-ray. Objective - Vital Signs Vital signs: Vital Signs Temp 98.3 F 12/15/23 08:00 Pulse 97 12/15/23 09:00 Resp 31 H 12/15/23 09:00 BP 116/74 12/15/23 09:00 Pulse Ox 97 12/15/23 09:00 FiO2 30 12/15/23 09:20 Intake & Output 12/14/23 12/15/23 12/15/23 18:59 06:59 18:59 Intake Total 229 803 146 Output Total 550 875 220 Balance - - Weight 96.4 kg Intake: IV 169 143 26 0.9 KVO 130 110 20 Normal Saline Pressure 39 33 6 Saline Tube Feeding 50 550 100 Other 10 110 20 Output: Drainage 100 120 60 Right Abdomen 100 120 60 Urine 450 755 160 Other: Voiding Method Indwelling Catheter Indwelling Catheter Indwelling Catheter # Bowel Movements 1 ABP, PAP, CO, CI - Last Documented Arterial Blood Pressure 140/49 - Exam No acute distress, somewhat lethargic, in no acute distress, with a midline t racheostomy tube. HEENT examination is grossly unremarkable. Neck supple. Full range of motion. No adenopathy thyromegaly or neck vein distention. Midline tracheostomy tube noted. Cardiovascular examination reveals regular rhythm rate. S1-S2 normal. No S3 or S4. No discernible murmur noted. Lungs reveal mild scattered rhonchi. No wheezes or crackles. Breath sounds equal. Abdomen soft, without bowel sounds. Midline incision, there is for the most part intact, although there is some purulence noted, with some minimal dehiscence Extremities are intact. No cyanosis clubbing or edema. Skin is without rash or lesion. Neurologic examination is difficult to assess. - Labs CBC & Chem 7: 12/15/23 04:17 12/15/23 04:17 Labs: Abnormal Lab Results - Last 24 Hours (Table) 12/14/23 12/14/23 12/14/23 Range/Units 03:34 09:24 12:20 WBC (3.8-10.6) k/uL RBC (4.30-5.90) m/uL Hgb (13.0-17.5) gm/dL Hct (39.0-53.0) % RDW (11.5-15.5) % Neutrophils # (1.3-7.7) k/uL Lymphocytes # (1.0-4.8) k/uL ABG pH (7.35-7.45) ABG pO2 (83-108) mmHg ABG HCO3 (21-25) mmol/L ABG Total CO2 (19-24) mmol/L Hemoglobin (13.0-17.5) gm/dL BUN (9-20) mg/dL Creatinine (0.66-1.25) mg/dL Glucose (74-99) mg/dL POC Glucose (mg/dL) 128 H (70-110) mg/dL Calcium (8.4-10.2) mg/dL Procalcitonin 1.92 H (0.02-0.50) ng/mL Urine Protein 1+ H (Negative) Urine Blood Small H (Negative) Urine WBC 6 H (0-5) /hpf Amorphous Sediment Rare H (None) /hpf Urine Bacteria Rare H (None) /hpf Urine Mucus Rare H (None) /hpf Urine Yeast (Budding) Few H (None) /hpf 12/15/23 12/15/23 12/15/23 Range/Units 00:12 04:17 04:17 WBC 16.3 H (3.8-10.6) k/uL RBC 2.62 L (4.30-5.90) m/uL Hgb 7.5 L (13.0-17.5) gm/dL Hct 22.6 L (39.0-53.0) % RDW 19.2 H (11.5-15.5) % Neutrophils # 14.8 H (1.3-7.7) k/uL Lymphocytes # 0.7 L (1.0-4.8) k/uL ABG pH (7.35-7.45) ABG pO2 (83-108) mmHg ABG HCO3 (21-25) mmol/L ABG Total CO2 (19-24) mmol/L Hemoglobin (13.0-17.5) gm/dL BUN 125 H* (9-20) mg/dL Creatinine 3.22 H (0.66-1.25) mg/dL Glucose 189 H (74-99) mg/dL POC Glucose (mg/dL) 154 H (70-110) mg/dL Calcium 6.9 L (8.4-10.2) mg/dL Procalcitonin (0.02-0.50) ng/mL Urine Protein (Negative) Urine Blood (Negative) Urine WBC (0-5) /hpf Amorphous Sediment (None) /hpf Urine Bacteria (None) /hpf Urine Mucus (None) /hpf Urine Yeast (Budding) (None) /hpf 12/15/23 12/15/23 Range/Units 05:49 06:07 WBC (3.8-10.6) k/uL RBC (4.30-5.90) m/uL Hgb (13.0-17.5) gm/dL Hct (39.0-53.0) % RDW (11.5-15.5) % Neutrophils # (1.3-7.7) k/uL Lymphocytes # (1.0-4.8) k/uL ABG pH 7.47 H (7.35-7.45) ABG pO2 78 L (83-108) mmHg ABG HCO3 26 H (21-25) mmol/L ABG Total CO2 27 H (19-24) mmol/L Hemoglobin 7.5 L (13.0-17.5) gm/dL BUN (9-20) mg/dL Creatinine (0.66-1.25) mg/dL Glucose (74-99) mg/dL POC Glucose (mg/dL) 220 H (70-110) mg/dL Calcium (8.4-10.2) mg/dL Procalcitonin (0.02-0.50) ng/mL Urine Protein (Negative) Urine Blood (Negative) Urine WBC (0-5) /hpf Amorphous Sediment (None) /hpf Urine Bacteria (None) /hpf Urine Mucus (None) /hpf Urine Yeast (Budding) (None) /hpf Microbiology - Last 24 Hours (Table) 12/14/23 09:55 Gram Stain - Preliminary Abdomen Wound Culture - Preliminary Assessment and Plan Assessment: Acute hypoxemic respiratory failure with failure to wean from mechanical ventilation, S/P tracheostomy on December 10, 2023. Respiratory failure, requiring reintubation, on November 25, 2023. Acute hypoxic respiratory failure requiring intubation/mechanical ventilation secondary to aspiration during EGD on 11/12/2023. Patient was extubated on 11/02. S/P J-tube placement 11/16/2023. Septic shock. Acute kidney injury secondary to sepsis, and ATN. Acute bowel obstruction, diagnosed via CT scan, November 24, 2023. Acute aspiration pneumonia. Acute aspiration during upper endoscopy most likely secondary to gastric outlet obstruction secondary to non-Hodgkin's lymphoma. Chronic abdominal pain, secondary to lymphoma. Unexplained weight loss most likely secondary non-Hodgkin's lymphoma involving the stomach. Paroxysmal atrial fibrillation. Chronic anemia. Plan: Plan dated November 21, 2023. The patient is seen today in room 517. The patient is on 3 L of oxygen. He continues on Zosyn. Continues on tube feeds. He had a CT scan of the abdomen and pelvis. His respiratory status is improved. We will continue to follow. Prognosis is guarded. Labs, x-rays, medications are reviewed. The patient is apparently scheduled for an outpatient PET scan. Plan dated November 22, 2023. The patient appears very stable. His is in the room with him. Labs, x- rays, and medications are reviewed. The patient continues on Zosyn. Resting room air saturation was 89%. Chest CT, revealed bilateral patchy and basilar infiltrates. We will continue to follow make recommendations along the way. Prognosis is guarded. The patient was diagnosed with a gastric outlet obstruction, secondary to non-Hodgkin's lymphoma. Plan dated November 23, 2023. The patient is seen today in room 517. He is resting comfortably. He continues on saline at 10 cc an hour. He is getting tube feedings with Pivot at 20 cc an hour. He has been weaned down to 2 L of oxygen. He continues on Zosyn. Labs, x-rays, and all medications are reviewed. Prognosis is guarded. We will continue to follow. Plan dated November 24, 2023. The patient will be admitted to the intensive care unit. I believe he deserves to be an ICU patient. I did speak to the surgeon. Labs, x-rays, and medications are reviewed. No additional recommendations are made. Prognosis is guarded. The patient has now been in the hospital for 12 days. We will continue to follow. He continues on Zosyn. Plan dated December 14, 2023. The patient is seen today in room 253. Currently, the patient is on the ventilator. He will have another PSV/CPAP trial. Apparently yesterday, he went for about 2-1/2 hours before he required to be placed back on the ventilator. The patient is getting saline at 10 cc an hour, and Nepro tube feedings at 50 cc an hour, which is goal. The patient had a fever, and will be recultured. In addition, the midline incision in the abdomen, shows some evidence of purulence, and will have a surgeon, take a look at that. Currently, the patient is not on any antibiotics. We will recheck a procalcitonin level. One of the family members was in the room, and was updated. Plan dated December 15, 2023. The patient actually spent about 6 hours on pressor support yesterday. The patient will have another spontaneous breathing trial today. The patient remains off of all sedation. He is getting Ativan and Dilaudid as needed. He is receiving tube feedings at goal. Labs, x-rays, and medications are reviewed. The repeat procalcitonin level was elevated at 1.92. We added Zosyn empiric ally. He had pancultures done yesterday. Labs, x-rays, and all medications are reviewed. Prognosis is guarded. An update was given to the daughter and to the right. Dictation was produced using [employer] dictation software. Please excuse any grammatical, word or spelling errors. Time with Patient: Greater than 30
--- NOTE | 2023-12-15 11:16 | P.PN ---
Subjective Progress Note Date: 12/15/23 Patient is seen in follow-up for acute kidney injury. Patient underwent exploratory laparotomy with small bowel obstruction NG tube replacement November 25, 2023. Remains off Levophed. Receiving tube feeds. Nonoliguric. Started on hemodialysis November 29, 2023. Status post tracheostomy December 10, 2023. Urine output dropped over night. Vital signs stable. Off vasopressors. General: Resting in bed. HEENT: Tracheostomy noted. LUNGS: Scattered rhonchi. HEART: Regular rate and rhythm. ABDOMEN: No drainage. EXTREMITITES: 1+ edema. Objective - Vital Signs Vital signs: Vital Signs Temp 99.5 F 12/15/23 04:00 Pulse 95 12/15/23 08:00 Resp 18 12/15/23 07:00 BP 110/67 12/15/23 07:00 Pulse Ox 100 12/15/23 07:00 FiO2 30 12/15/23 07:42 Intake & Output 12/14/23 12/15/23 12/15/23 18:59 06:59 18:59 Intake Total 229 803 73 Output Total 550 875 60 Balance -321 -72 13 Weight 96.4 kg Intake: IV 169 143 13 0.9 KVO 130 110 10 Normal Saline Pressure 39 33 3 Saline Tube Feeding 50 550 50 Other 10 110 10 Output: Drainage 100 120 Right Abdomen 100 120 Urine 450 755 60 Other: Voiding Method Indwelling Catheter Indwelling Catheter # Bowel Movements 1 ABP, PAP, CO, CI - Last Documented Arterial Blood Pressure 143/55 - Labs CBC & Chem 7: 12/15/23 04:17 12/15/23 04:17 Labs: Abnormal Lab Results - Last 24 Hours (Table) 12/14/23 12/14/23 12/14/23 Range/Units 03:34 09:24 12:20 WBC (3.8-10.6) k/uL RBC (4.30-5.90) m/uL Hgb (13.0-17.5) gm/dL Hct (39.0-53.0) % RDW (11.5-15.5) % Neutrophils # (1.3-7.7) k/uL Lymphocytes # (1.0-4.8) k/uL ABG pH (7.35-7.45) ABG pO2 (83-108) mmHg ABG HCO3 (21-25) mmol/L ABG Total CO2 (19-24) mmol/L Hemoglobin (13.0-17.5) gm/dL BUN (9-20) mg/dL Creatinine (0.66-1.25) mg/dL Glucose (74-99) mg/dL POC Glucose (mg/dL) 128 H (70-110) mg/dL Calcium (8.4-10.2) mg/dL Procalcitonin 1.92 H (0.02-0.50) ng/mL Urine Protein 1+ H (Negative) Urine Blood Small H (Negative) Urine WBC 6 H (0-5) /hpf Amorphous Sediment Rare H (None) /hpf Urine Bacteria Rare H (None) /hpf Urine Mucus Rare H (None) /hpf Urine Yeast (Budding) Few H (None) /hpf 12/15/23 12/15/23 12/15/23 Range/Units 00:12 04:17 04:17 WBC 16.3 H (3.8-10.6) k/uL RBC 2.62 L (4.30-5.90) m/uL Hgb 7.5 L (13.0-17.5) gm/dL Hct 22.6 L (39.0-53.0) % RDW 19.2 H (11.5-15.5) % Neutrophils # 14.8 H (1.3-7.7) k/uL Lymphocytes # 0.7 L (1.0-4.8) k/uL ABG pH (7.35-7.45) ABG pO2 (83-108) mmHg ABG HCO3 (21-25) mmol/L ABG Total CO2 (19-24) mmol/L Hemoglobin (13.0-17.5) gm/dL BUN 125 H* (9-20) mg/dL Creatinine 3.22 H (0.66-1.25) mg/dL Glucose 189 H (74-99) mg/dL POC Glucose (mg/dL) 154 H (70-110) mg/dL Calcium 6.9 L (8.4-10.2) mg/dL Procalcitonin (0.02-0.50) ng/mL Urine Protein (Negative) Urine Blood (Negative) Urine WBC (0-5) /hpf Amorphous Sediment (None) /hpf Urine Bacteria (None) /hpf Urine Mucus (None) /hpf Urine Yeast (Budding) (None) /hpf 12/15/23 12/15/23 Range/Units 05:49 06:07 WBC (3.8-10.6) k/uL RBC (4.30-5.90) m/uL Hgb (13.0-17.5) gm/dL Hct (39.0-53.0) % RDW (11.5-15.5) % Neutrophils # (1.3-7.7) k/uL Lymphocytes # (1.0-4.8) k/uL ABG pH 7.47 H (7.35-7.45) ABG pO2 78 L (83-108) mmHg ABG HCO3 26 H (21-25) mmol/L ABG Total CO2 27 H (19-24) mmol/L Hemoglobin 7.5 L (13.0-17.5) gm/dL BUN (9-20) mg/dL Creatinine (0.66-1.25) mg/dL Glucose (74-99) mg/dL POC Glucose (mg/dL) 220 H (70-110) mg/dL Calcium (8.4-10.2) mg/dL Procalcitonin (0.02-0.50) ng/mL Urine Protein (Negative) Urine Blood (Negative) Urine WBC (0-5) /hpf Amorphous Sediment (None) /hpf Urine Bacteria (None) /hpf Urine Mucus (None) /hpf Urine Yeast (Budding) (None) /hpf Microbiology - Last 24 Hours (Table) 12/14/23 09:55 Gram Stain - Preliminary Abdomen Wound Culture - Preliminary Assessment and Plan Assessment: 1. Acute kidney injury secondary to ATN secondary to septic shock. Creatinine 0.86 on admission and up to 5.38 dated November 29, 2023. Urine output improved, now nonoliguric. UA fairly benign. No hydronephrosis noted on imaging. Started on hemodialysis November 29, 2023 due to volume overload. Patient initially had a right femoral catheter placed which subsequently became occluded and a left femoral catheter was placed December 06, 2023. Elevated BUN partially due to steroids. 2. Perforated small bowel status post exploratory laparotomy with abdominal washout, small bowel resection and J-tube replacement November 25, 2023. 3. A-fib with RVR. s/p amiodarone drip. Also received digoxin this admission. 4. Recently diagnosed gastric B-cell lymphoma. 5. Septic shock. Likely abdominal source. On IV antibiotics. Off vasopressors now. 6. Hypocalcemia secondary to acute kidney injury. Replaced. Improved. 7. Metabolic acidosis secondary to acute kidney injury. Improved. 8. Volume overload. Improved with diuresis and ultrafiltration. 9. Status post tracheostomy December 10, 2023. 10. Anemia. Component of chronic illness and acute blood loss. Received blood transfusion and DDAVP this admission. On Aranesp. 11. Respiratory alkalosis. Plan: Will plan to hold HD over the weekend and reassess Saturday. IV Lasix 60 mg overnight due to decrease in urine output with good response. Maintain tube feeds. Avoid nephrotoxins. Preserved EF noted on echocardiogram. Phosphorus level 4.1 dated December 12, 2023. Continue to monitor for renal recovery.
[2023-12-15 11:26] LABS: Glucose,Whole Blood 108 mg/dL (70-110)
[2023-12-15] MEDS: VANCOMYCIN 1,000 MG in SODIUM CHLORIDE 0.9% 250 ML IVPB ONE (11:29)
--- NOTE | 2023-12-15 14:02 | P.PN ---
Progress Note - Text Progress Note Date: 12/15/23 CHIEF COMPLAINT: Abdominal pain HISTORY OF PRESENT ILLNESS: NAEO. Tolerating tube feeds at 50 cc/hr. No issues with tracheostomy. Continuing to monitor midline wound dehiscense. PHYSICAL EXAM: VITAL SIGNS: Reviewed. GENERAL: no acute distress. HEENT: Tracheostomy site clean dry and intact ABDOMEN: Soft. Midline incision with serous drainage. J-tube in place. RAYA drain in place ASSESSMENT: 1. 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 Status post J-tube placement and revision for small bowel obstruction PLAN: -Keep patient strict n.p.o. -Do not place medications down J-tube -Will continue to monitor midline wound dehiscense. Fascia is intact. -Continue tube feeds -Continue ICU management -Continue supportive care Dick Ewing DO [facility] [phone]
[2023-12-15] MEDS: HYDROmorphone 0.5 MG/0.5 ML SYRINGE IVP PRN (16:44)
[2023-12-15 17:47] LABS: Glucose,Whole Blood 70 mg/dL (70-110)
[2023-12-15 23:55] LABS: Glucose,Whole Blood 137 mg/dL (70-110)
[2023-12-16 05:01] LABS: Anisocytosis Slight; Basophils % (A) 0 %; Eosinophils % (A) 0 %; HCT 22.3 % (39.0-53.0); HGB 7.1 gm/dL (13.0-17.5); Lymphocytes # (A) 1.2 k/uL (1.0-4.8); Lymphocytes % (A) 6 %; MCH 27.3 pg (25.0-35.0); MCV 85.5 fL (80.0-100.0); Monocytes # (A) 0.4 k/uL (0-1.0); Monocytes % (A) 2 %; Neutrophils # (A) 17.3 k/uL (1.3-7.7); Neutrophils % (A) 91 %; Platelet Count 238 k/uL (150-450); RBC 2.61 m/uL (4.30-5.90); RDW 19.7 % (11.5-15.5); WBC 18.9 k/uL (3.8-10.6)
[2023-12-16 05:10] LABS: African American GFR (CKD) 20 (>60 ml/min/1.73 sqM); Anion Gap 5 mmol/L; Carbon Dioxide 27 mmol/L (22-30); Chloride 109 mmol/L (98-107); Glucose 211 mg/dL (74-99); Magnesium 2.1 mg/dL (1.6-2.3); Non-African American GFR(CKD) 17 (>60 ml/min/1.73 sqM); Potassium 3.5 mmol/L (3.5-5.1); Sodium 141 mmol/L (137-145)
[2023-12-16 05:27] LABS: ABG Base Excess 2.2 mmol/L; ABG HCO3 25 mmol/L (21-25); ABG Oxygen Saturation 95.9 % (94-97); ABG PCO2 31 mmHg (35-45); ABG PH 7.51 (7.35-7.45); ABG PO2 74 mmHg (83-108); ABG TCO2 26 mmol/L (19-24)
[2023-12-16 05:31] LABS: Allen Test Performed? no
[2023-12-16 05:57] LABS: Blood Urea Nitrogen 131 mg/dL (9-20)
[2023-12-16 06:40] LABS: Glucose,Whole Blood 245 mg/dL (70-110)
--- NOTE | 2023-12-16 07:34 | XR ---
EXAMINATION TYPE: XR chest 1V portable DATE OF EXAM: 12/16/2023 5:48 AM CLINICAL INDICATION: Male, 73 years old with history of mechanical ventilation; [facility] COMPARISON: Chest radiographs from 01/01/2024 TECHNIQUE: XR chest 1V portable Frontal view of the chest. FINDINGS: Lungs/Pleura: Right apical cavitary lesion unchanged from prior. No evidence of focal consolidation o r pneumothorax. Blunting of the costophrenic angles is present. Pulmonary vascularity: Unremarkable. Heart/mediastinum: Cardiomediastinal silhouette is unremarkable. Musculoskeletal: No acute osseous pathology. Other findings: None Lines/Tubes: Tracheostomy cannula tip projecting over the trachea. Uaednp-k-Soad projecting over the right hemithorax with distal tip at the cavoatrial junction. Left-sided PICC with distal tip at the superior vena cava/brachiocephalic confluence. IMPRESSION: Stable exam with mild right apical cavitary lesion. [facility], , 12/16/2023 7:31 AM
--- NOTE | 2023-12-16 07:51 | P.PN ---
Subjective 73-year-old white male with history of chronic abdominal pain for the last 8 months has been treated with Protonix 40 mg daily for the last 3 months with no improvement. Patient had a 22 pound weight loss in the last [address] of the abdomen and pelvis 3 weeks ago showed thickening of the antral wall with pathological adenopathy posterior to the stomach suspicious of neoplasm. Today the patient underwent elective upper endoscopy to evaluate further, patient received IV sedation by anesthesia endoscope was inserted into the mouth, esophagus was intubated without any difficulty there was evidence of large amount of liquid and solid food noted in the stomach suggestive of gastric outlet obstruction. Scope could not be advanced through the pylorus, however in the prepyloric area there was a large superficial ulceration identified with multiple biopsies were done from this area. The body cardia and fundus could not adequately visualize because of large amount of retained food in the stomach. Scope was withdrawn back to the stomach and upon careful examination the mucosa of the antrum body and cardia as well as the fundus appeared normal. Procedure was being performed and biopsies were done patient threw up and subsequently became hypoxic there was clearly evidence of witnessed aspiration anesthesia intubated the patient, procedure was terminated, and the patient was transferred to the ICU, this consult was initiated. Patient is now on assist- control rate of 20 tidal volume 500 FiO2 70% PEEP of 10 ABG is pending, earlier ABG showed profound hypoxia patient is on propofol at 50 mcg/kg/min, next ABG is pending. Chest x-ray showed chronic changes without evidence of acute pulmonary disease. 12/14/2023 Patient remains in the ICU, generally weak Patient s/p tracheostomy G-tube in place Patient still has fever and mild tachycardia but tachycardia is improving, leukocytosis improving as well. Hemoglobin 8.1. Creatinine 3.0 and nephrology team on the case. He has mild transaminitis. He was getting Zosyn which is held now, nowCalcitonin is pending 12/14 Patient shon in the ICU, he is still encephalopathic and does not follow command. Neurology service following closely. He is status post tracheostomy. Also J-tube His abdomen looks soft and on exam he has mild coarse secretions. Has a Abarca catheter with clear urine His pro- Calcitonin is still high but trending down 3.0 down to 1.9 No fever this morning WBC slightly less at 16.3 Patient currently off antibiotic He is getting steroids IV Solu-Medrol which might contribute to his leukocytosis. Also he is on IV Keppra by neurologist 12/14 Patient remains confused in the ICU calm, he had a good night per family member and staff. Tracheostomy in place Patient has occasional coughing spells, patient also developed some partial wound dehiscence in his abdomen, surgery team are aware and are going to evaluate the patient Patient also has positive blood culture from 12/13: Gram-positive cocci in clusters. Patient received one-time dose of IV vancomycin. Patient also had fever 2 days ago, leukocytosis and total elevated pro- Calcitonin. Therefore we are going to consult infectious disease team. As his antibiotic Zosyn was stopped few days ago. Currently patient KVO He has good urine output Active Medications Generic Name Dose Route Start Last Admin Trade Name Freq PRN Reason Stop Dose Admin Acetaminophen 650 mg 11/20/23 11:57 12/09/23 20:09 Acetaminophen Tab 325 Mg Tab PO 650 mg Q4HR PRN Administration Fever and/ or Pain Acetaminophen 480 mg 11/24/23 09:55 Acetaminophen Oral Susp (Peds) 3,840 Mg/120 Ml Bottle PO Q4HR PRN Fever Albuterol/Ipratropium 3 ml 11/15/23 08:00 12/15/23 19:16 Ipratropium-Albuterol 3 Ml Neb INHALATION 3 ml RT-QID NIRMAL Administration Albuterol/Ipratropium 3 ml 11/25/23 22:36 12/03/23 03:45 Ipratropium-Albuterol 3 Ml Neb INHALATION 3 ml RT-Q2H PRN Administration Shortness Of Breath Or Wheezing Chlorhexidine Gluconate 15 ml 11/25/23 21:00 12/15/23 20:34 Chlorhexidine Gluconate 15 Ml Cup MUCOUS MEM 15 ml BID NIRMAL Administration Darbepoetin Scooby 40 mcg 12/10/23 09:00 12/10/23 09:27 Darbepoetin Scooby 40 Mcg/0.4 Ml Syringe SQ 40 mcg Q7D NIRMAL Administration Dextrose/Water 25 ml 11/17/23 11:47 Dextrose 50% Syringe 50 Ml IVP PER PROTOCOL PRN Hypoglycemia Protocol Dextrose/Water 50 ml 11/17/23 11:47 Dextrose 50% Syringe 50 Ml IVP PER PROTOCOL PRN Hypoglycemia Protocol Hydromorphone HCl 0.5 mg 12/15/23 16:32 12/15/23 16:44 Hydromorphone 0.5 Mg/0.5 Ml Syringe IVP 0.5 mg Q4HR PRN Administration Pain Sodium Chloride 1,000 mls @ 20 mls/hr 11/28/23 10:15 12/15/23 14:00 Saline 0.9% IV Not Given .Q24H NIRMAL Propofol 1,000 mg/ IV Solution 100 mls @ 9.324 mls/hr 12/09/23 11:45 12/16/23 04:18 IV Not Given .[id number] [facility] Protocol 15 MCG/KG/MIN Piperacillin Sod/Tazobactam 100 mls @ 25 mls/hr 12/15/23 08:45 12/16/23 00:09 Sod 3.375 gm/ Sodium Chloride IVPB 25 mls/hr Q8HR NIRMAL Administration Protocol Insulin Aspart 0 unit 11/22/23 12:00 12/16/23 06:44 Insulin Aspart (Novolog) 100 Unit/Ml Vial SQ 4 unit 0000,0600,1200,1800 [facility] Administration Protocol Insulin Detemir 24 unit 12/01/23 07:00 12/15/23 05:53 Insulin Detemir (Levemir) 100 Unit/Ml Syr SQ 24 unit DAILY@0700 [facility] Administration Levetiracetam 500 mg 12/08/23 17:30 12/15/23 09:19 Levetiracetam Iv 500 Mg/5 Ml Vial IVP 500 mg Q24HR NIRMAL Administration Lorazepam 1 mg 12/15/23 16:32 Lorazepam 2 Mg/Ml Inj IV Q4HR PRN Anxiety Methylprednisolone Sodium Succinate 40 mg 12/13/23 18:00 12/15/23 17:49 Methylprednisolone Sod Succi 40 Mg/Ml 1 Ml Vial IV 40 mg DAILY@1800 [facility] Administration Metoprolol Tartrate 2.5 mg 11/25/23 21:37 11/27/23 08:25 Metoprolol Tartrate 5 Mg/5 Ml Vial IVP 2.5 mg Q6HR PRN Administration Heart Rate - HIGH Midodrine 5 mg 12/07/23 12:30 12/16/23 06:48 Midodrine 5 Mg Tab PO Not Given AC-TID [facility] Miscellaneous Information 1 each 11/14/23 06:16 Magnesium Replacement Protocol 1 Each [facility] MISCELLANE DAILY PRN Per Protocol Protocol Naloxone HCl 0.2 mg 11/12/23 11:32 Naloxone 0.4 Mg/Ml 1 Ml Vial IV Q2M PRN Opioid Reversal Pantoprazole Sodium 40 mg 11/12/23 21:00 12/15/23 20:34 Pantoprazole 40 Mg/10 Ml Vial IVP 40 mg BID NIRMAL Administration Objective - Vital Signs Vital signs: Vital Signs Temp 98.3 F 12/16/23 04:00 Pulse 98 12/16/23 07:00 Resp 31 H 12/16/23 07:00 BP 110/71 12/16/23 07:00 Pulse Ox 95 12/16/23 07:00 FiO2 30 12/16/23 04:00 Intake & Output 12/15/23 12/16/23 12/16/23 18:59 06:59 18:59 Intake Total 941 1106 88 Output Total 1220 1100 75 Balance -279 6 13 Weight 98.5 kg Intake: IV 156 326 23 0.9 KVO 120 190 20 Normal Saline Pressure 36 36 3 Saline Piperacillin-Tazobactam 3 100 .375 gm In Sodium Chloride 0.9% 100 ml @ 25 mls/hr IVPB Q8HR [facility] Rx# :[id number] Tube Feeding 600 600 50 Other 185 180 15 Output: Drainage 180 100 Right Abdomen 180 100 Urine 1040 1000 75 Other: Voiding Method Indwelling Catheter Indwelling Catheter # Bowel Movements 1 ABP, PAP, CO, CI - Last Documented Arterial Blood Pressure 118/49 - Exam -GENERAL: The patient is alert and awake, looks confused, looks tired, not in a ny acute distress. Well developed, well nourished. Generally weak HEENT: Pupils are round and equally reacting to light. EOMI. No scleral icterus. No conjunctival pallor. Normocephalic, atraumatic. No pharyngeal erythema. No thyromegaly. CARDIOVASCULAR: S1 and S2 present. No murmurs, rubs, or gallops. - PULMONARY: Chest is clear to auscultation, no wheezing , no crackles. Status post tracheostomy tube - ABDOMEN: Soft, nontender, nondistended, normoactive bowel sounds. No palpable organomegaly. S/p J-tube in place MUSCULOSKELETAL: No joint swelling or deformity. EXTREMITIES: No cyanosis, clubbing, or pedal edema. NEUROLOGICAL: Gross neurological examination did not reveal any focal deficits. SKIN: No rashes. no petechiae. - Labs CBC & Chem 7: 12/16/23 04:40 12/16/23 04:40 Labs: Abnormal Lab Results - Last 24 Hours (Table) 12/15/23 12/16/23 12/16/23 Range/Units 23:52 04:40 04:40 WBC 18.9 H (3.8-10.6) k/uL RBC 2.61 L (4.30-5.90) m/uL Hgb 7.1 L (13.0-17.5) gm/dL Hct 22.3 L (39.0-53.0) % RDW 19.7 H (11.5-15.5) % Neutrophils # 17.3 H (1.3-7.7) k/uL ABG pH (7.35-7.45) ABG pCO2 (35-45) mmHg ABG pO2 (83-108) mmHg ABG Total CO2 (19-24) mmol/L Hemoglobin (13.0-17.5) gm/dL Chloride 109 H (98-107) mmol/L BUN 131 H* (9-20) mg/dL Creatinine 3.40 H (0.66-1.25) mg/dL Glucose 211 H (74-99) mg/dL POC Glucose (mg/dL) 137 H (70-110) mg/dL Calcium 7.0 L (8.4-10.2) mg/dL 12/16/23 12/16/23 Range/Units 05:21 06:38 WBC (3.8-10.6) k/uL RBC (4.30-5.90) m/uL Hgb (13.0-17.5) gm/dL Hct (39.0-53.0) % RDW (11.5-15.5) % Neutrophils # (1.3-7.7) k/uL ABG pH 7.51 H (7.35-7.45) ABG pCO2 31 L (35-45) mmHg ABG pO2 74 L (83-108) mmHg ABG Total CO2 26 H (19-24) mmol/L Hemoglobin 7.3 L (13.0-17.5) gm/dL Chloride (98-107) mmol/L BUN (9-20) mg/dL Creatinine (0.66-1.25) mg/dL Glucose (74-99) mg/dL POC Glucose (mg/dL) 245 H (70-110) mg/dL Calcium (8.4-10.2) mg/dL Microbiology - Last 24 Hours (Table) 12/14/23 11:35 Gram Stain - Preliminary Sputum Sputum Culture - Preliminary Gram Neg Bacilli 12/14/23 09:46 Blood Culture Gram Stain - Preliminary Blood Blood Culture - Preliminary Molecular ID 12/14/23 09:55 Gram Stain - Preliminary Abdomen Wound Culture - Preliminary Assessment and Plan Assessment: 1. Acute hypoxic respiratory failure requiring intubation mechanical ventilati on secondary to aspiration during upper endoscopy most likely secondary to gastric outlet obstruction --S/p tracheostomy Continue ventilatory support Continue DuoNeb 3 mL elation 4 times daily, Solu-Medrol 40 mg IV daily Continuing to evaluate for placement of a long-term acute care facility 2. Paroxysmal atrial fibrillation - resolved at the moment Normal on telemetry, patient noted to be in A-fib with RVR 3. CRISTAL secondary to sepsis and septic shock Patient receiving hemodialysis since 11/28 Continue to monitor patient's urine output 4. Acute aspiration at night as secondary to acute aspiration during upper endoscopy most likely secondary to gastric outlet obstruction secondary to non- Hodgkin's lymphoma based on the pathology from stomach biopsies Patient had been on IV Zosyn and vancomycin have been discontinued Has received 14 days total of antibiotics, combined Zosyn, vancomycin, meropenem 5. 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 Patient with fever, leukocytosis, mild tachycardia, patient finished course of IV Zosyn -Continue monitoring, if no improvement in the fever and other parameters then may consider infectious disease consult -Recheck pro- Calcitonin -Patient has positive blood culture, received 1 dose of IV vancomycin. Consult infectious disease service. GI prophylaxis: Protonix 40 mg twice daily Nutrition: TPN has been stopped, he is now receiving Nepro 50 mL per hour
[2023-12-16] MEDS ORDERED: VANCOMYCIN IV PER PHARMACY 1 EACH MISC MISCELLANE PRN (09:49)
[2023-12-16] MEDS: DEXMEDETOMIDINE/0.9% NACL(PMX) 400 MCG in EMPTY BAG 1 BAG IV SCH (09:59)
--- NOTE | 2023-12-16 11:34 | P.PN ---
Subjective Progress Note Date: 12/16/23 This is a 73-year-old white male with history of chronic abdominal pain for the last 8 months has been treated with Protonix 40 mg daily for the last 3 months with no improvement. Patient had a 22 pound weight loss in the last [address] of the abdomen and pelvis 3 weeks ago showed thickening of the antral wall with pathological adenopathy posterior to the stomach suspicious of neoplasm. Today the patient underwent elective upper endoscopy to evaluate further, patient received IV sedation by anesthesia endoscope was inserted into the mouth, esophagus was intubated without any difficulty there was evidence of large amount of liquid and solid food noted in the stomach suggestive of gastric outlet obstruction. Scope could not be advanced through the pylorus, however in the prepyloric area there was a large superficial ulceration identified with multiple biopsies were done from this area. The body cardia and fundus could not adequately visualize because of large amount of retained food in the stomach. Scope was withdrawn back to the stomach and upon careful examination the mucosa of the antrum body and cardia as well as the fundus appeared normal. Procedure was being performed and biopsies were done patient threw up and subsequently became hypoxic there was clearly evidence of witnessed aspiration anesthesia intubated the patient, procedure was terminated, and the patient was transferred to the ICU, this consult was initiated. Patient is now on assist- control rate of 20 tidal volume 500 FiO2 70% PEEP of 10 ABG is pending, earlier ABG showed profound hypoxia patient is on propofol at 50 mcg/kg/min, next ABG is pending. Chest x-ray showed chronic changes without evidence of acute pulmonary disease. Patient was seen and examined today on 11/13/2023, remains in the ICU, intubated mechanically ventilated, on assist-control rate of 20 tidal volume 500 FiO2 50% and PEEP of 10 ABG showed a pO2 of 143 pCO2 47 pH of 7.28 hence PEEP was cut down to 6, and increased rate to 22. Patient is still requiring IV fluid at 100 cc/h/LR. Requiring norepinephrine at 0.08 mcg/kg/min he is also on propofol at 50 mg/kg/min antibiotics arce patient is receiving Zosyn. Chest x-ray is damion wing worsening infiltrates specially in the left lung. This could be related to aspiration pneumonia. Patient had witnessed aspiration during endoscopy/upper endoscopy.WBC count is 14 hemoglobin 7.6 basic metabolic profile is normal BUN is 26 creatinine 1.57 obviously the patient sustained some acute kidney injury baseline creatinine 0.86 patient had received fluids over the last 24 hours, remains on fluids at 100 cc/h Patient with seen and examined today on 11/14/2023, patient remains in the ICU, intubated and mechanically ventilated. Failed weaning trial yesterday and he became quite agitated and desaturated once he went off propofol. Had to be placed back on assist-control mode of mechanical ventilation and sedation. Today the patient is on assist-control rate of 22 tidal volume 500 FiO2 50% PEEP of 6. ABG showed a pO2 of 123 pCO2 51 pH of 7.32, and I cut down his FiO2 down to 45%, patient is receiving a unit of packed RBCs for hemoglobin of 6.9 today. Patient had an episode of A-fib RVR at 3 AM in the morning, seen by cardiology, and recommended patient goes on amiodarone. Still requiring norepinephrine at 0.05 mg/kg/min, he is on LR at 100 cc/h propofol at 50 mg/kg/min. Remains empirically on Zosyn for aspiration pneumonia. My plan today is transitioning the patient to Precedex, hopefully discontinue propofol, and at least give the patient a decent weaning trial or at least check weaning parameters before we proceed to weaning trial. Chest x-ray continues to show evidence of pneumonia mostly in the left lung and left lower lobe more specifically. Some pulmonary vascular congestion is noted with interstitial edema, small pleural effusion is also noted/left side. WBC count today is 12 hemoglobin 6.9 basic metabolic profile is normal bicarb is 25, BUN is 25 creatinine is improving down to 1.21 from 1.57 yesterday Patient was evaluated today on 11/15/2023, patient remains in the ICU, he was extubated yesterday, and his extubation was relatively uneventful. However the patient continues to have nasogastric tube in place, his pathology report came back showing non-Hodgkin's lymphoma, patient has gastric outlet obstruction, and the recommendation by GI is to consult surgery for a jejunostomy tube which is appropriate. Patient will be seen today by oncology and he will be seen by general surgery. In the meantime patient is comfortable, he is on 5 L nasal cannula he has LR running at 100 cc/h, he is remains on Zosyn for aspiration pneumonia remains on amiodarone which was started by cardiology for atrial fibrillation with RVR, presently in sinus rhythm. Cannot switch him to oral because of the fact that remains n.p.o., patient remains on TPN. WBC count is 10.7 hemoglobin 7.5 electrolytes are normal renal profile is normal, creatinine normalized to 0.96 Patient was evaluated today on 11/16/2023, remains in the ICU, on 5 L nasal cannula remains on amiodarone at 0.5 mg/min remains on LR at 100 cc/h, however his chest x-ray is showing some component of interstitial edema or could be findings related to his recent episode of aspiration/aspiration pneumonia, nonetheless the patient seems to be a bit symptomatic, he has intermittent cough and wheezing, I am recommending Lasix 40 mg IV push, cut down his IV fluid to 50 cc/h, continue Zosyn, patient will be placed on DuoNeb updrafts and on Solu- Medrol. Patient is scheduled to have jejunostomy-tube placement today. WBC count is 13 hemoglobin 7.7 basic metabolic profile is normal and renal profile is normal Patient was evaluated today on 11/17/2023, patient underwent uneventful placement of a jejunostomy tube yesterday, in the ICU on 5 L, patient is relatively stable, not in any distress, patient continues to have nasogastric tube in place although he did have a J-tube placed yesterday. Patient was seen by oncology for his non-Hodgkin's lymphoma involving the gastric outlet. Today's x-ray showed evidence of pneumonia/bilateral interstitial infiltrate/edema patient was given a dose of Lasix, I reminded the patient had an aspiration episode which was significant. And he required intubation mechanical ventilation for a few days.WBC count today is 9.1 hemoglobin 7.9 electrolytes are normal renal profile is normal hence I plan to transfer the patient out of the ICU to a cardiac floor. And hopefully discharge planning in the next 2 days for The patient was seen today November 18, 2023 in follow-up in the intensive care unit. He is currently sitting up in bed. Awake and alert in no acute distress. He is maintaining O2 saturations in the 90s on 5 L/min per nasal cannula. Glucose 177. Remains on DuoNeb inhalations and Solu-Medrol. Antibiotics in the form of Zosyn. He has a J-tube in place. He was initiated on vital AF 1.2 at 10 mL an hour with a goal of 82 mL/h The patient is seen today November 19, 2023 in follow-up in the intensive care unit. He is a regular medical floor overflow patient. He is currently sitting up in a chair. Awake and alert in no acute distress. He is maintaining O2 saturations in the 90s on 5 L/min per nasal cannula. No IV fluids. He denies any worsening shortness of breath, cough or congestion. He is having some issues with diarrhea. He remains on Zosyn. He is receiving vital AF at 55 mL/h with a goal of 82 mL/h. Glucose 161. Solu-Medrol, DuoNeb inhalations. The patient is seen today November 20, 2023 in follow-up on the regular medical floor. He is currently up in a chair at the bedside. Awake and alert in no acute distress. Denies any worsening shortness of breath, cough or congestion. He is maintaining O2 saturation in the 90s on 3 L/min per nasal cannula. He continues on Zosyn. Continues on bronchodilators and steroids. White count 12.3. Hemoglobin 9.0. Platelets 258. Glucose 168. He is not tolerating his tube feeds as he has developed diarrhea. C. difficile screen was negative. Abdominal series revealed cardiomegaly with left basilar acute infiltrate and/or atelectasis. Overall nonspecific bowel gas pattern. A small bowel obstruction needs to be considered. Progress note dated November 21, 2023. The patient is seen in room 517. The patient is currently on 3 L of oxygen. He continues on Zosyn. His biggest complaint has been abdominal discomfort and diarrhea. He did have a CT scan of the abdomen and pelvis. Current laboratory data includes a white count of 14.4, hemoglobin 8.8, hematocrit 28.7, and platelet count 229,000. Sodium 139, potassium 4.1, chlorides 103, CO2 30, BUN 42, creatinine 0.94. Glucose is 158. Calcium is 8.5. Progress note dated November 22, 2023. 73-year-old male seen in room 517. He currently is on 2 L of oxygen. Room air saturation was 89%. Chest CT shows bilateral patchy infiltrates. He continues on Zosyn. He is still not taking anything by mouth. No new laboratory data today other than a glucose of 138. Gram stain was negative. Progress note dated November 23, 2023. 73-year-old male seen in room 517. He is resting comfortably without complaints. He continues on saline at 10 cc an hour, tube feedings with Pivot at 20 cc an hour, Zosyn, and 2 L by nasal cannula. He has had an uneventful night. Laboratory data today includes a white count 14.5, hemoglobin 9.7, hematocrit 31.4, and a platelet count of 242,000. Sodium 138, potassium 3.7, chlorides 106, CO2 26, BUN 39, creatinine 0.95. Glucose is 181. Calcium is 8.5. Sputum sampling was negative. Progress note dated November 24, 2023. 73-year-old male who is seen in room 517. The patient has been having significant abdominal discomfort, and went for a evaluation, ordered by surgery today, to determine whether or not the feeding tube, was in proper position, and whether or not there is anything acutely going on in the abdomen. He had been having diarrhea. He is on 3 L of oxygen. He has been here for 12 days. This is a patient, that had a prior EGD, aspirated, because of gastric outlet obstruction, and was diagnosis of non-Hodgkin's lymphoma. He is currently on Zosyn, DuoNebs, and Solu-Medrol. He has been NPO. Chest x-ray showed a left lower lobe infiltrate. Abdominal x-ray showed multiple air-fluid levels. CT of the abdomen showed multiple dilated small bowel loops, consistent with obstruction, pneumoperitoneum, ascites, and cholelithiasis. White count was 14.1, hemoglobin 8.9, hematocrit 29.5, and platelet count was 255,000. Glucose was 143. 11/25/2023, the patient is being seen in the intensive care unit. The patient is critically ill, n.p.o., he has an NG tube in place. Following the NG tube insertion, there was a total of 2.0 L of output and the patient's J-tube was also draining approximately 200 cc over the past 8 hours. Continues to have abdominal pain which is rather diffuse and the patient has direct abdominal tenderness. CAT scan of the abdomen was noted and was consistent with small bow el obstruction. The patient has a stomach that was inflated and in the same time there were multiple loops of small bowel distended with fluid. This extended to the pelvis. J-tube with contrast nondilated small bowel loops within the mid abdomen. Additional loops of small bowel were seen that was dilated. There was some contrast in the right lower quadrant and contrast was also in the cecum. No transition point was identified. The dilated loops of the bowel appeared to be in the proximal jejunum and distal to the duodenum. General surgery is on the case the patient will be taken to the operating room for another exploratory laparotomy. Noted the CAT scan of the abdomen also showed pneumoperitoneum and small amount of ascites and cholelithiasis. Hemodynamically, the patient is currently on normal saline at rate of 75 cc an hour. He is hypotensive and is going to be started on pressors. He is on 4 L of oxygen by nasal cannula. He also has sustained acute kidney injury. Blood work from today shows a rise in the creatinine which is currently up to 2.5 with a BUN of 57. Serum bicarb is at 14 with an anion gap of 11. The patient WBC count is at 8.2 with a hemoglobin of 12.3 and a platelet count of 188. Chest x- ray from this morning is showing a right-sided port and a stable left lung airspace disease and an NG tube being in place. The patient remains on IV Zosyn. The patient is receiving Dilaudid for pain control. The patient remains on IV Solu-Medrol 60 mg every 6 hours. It was noted that the patient's surgical wound over the port has dehisced and there is some serous drainage and erythema at the incision site. Awake and alert and communicating. Family at the bedside. No apparent signs of respiratory distress at this point. 11/26/2023, the patient is being seen in follow-up. Events from yesterday was noted and the patient was taken to the operating room for exploratory laparotomy. The patient was found to have large amount of free fluid noted in the abdomen and there was significant contamination. There was perforation of the small bowel with the balloon of the previously inserted jejunostomy tube penetrating through the perforation. As such, the tube was removed, abdominal washout was done. Small bowel resection was done and the patient had a nodular jejunostomy tube inserted. Postop, the patient was extubated he was unable to tolerate extubation and the patient was kept intubated on mechanical ventilator and he was brought back to the intensive care unit. He is currently postop day #1 following his small bowel resection. Abdominal surgical wound site is dry clean and intact. This morning, the patient remains sedated on propofol which is currently running at 35 mcg/kg/min. He is on assist-control mode of mechanical ventilation at rate of 28, tidal volume of 550, FiO2 of 60% with a PEEP of 5. Blood gas from today shows a pH of 7.35 with a pCO2 44 and pO2 of 88. Chest x-ray shows adequate positioning of the orotracheal tube. The patient has a Mediport on the right and a subclavian triple-lumen catheter on the left and the patient has persistent bilateral pleural effusion and infiltrates in lung base bilaterally. Hemodynamically, the patient remains in shock. He has been on high-dose norepinephrine which is currently running at 0.28 mcg/kg/min and the patient is also on vasopressin at 0.03 units an hour. He is IV fluids are in the form of bicarb infusion running at rate of 150 cc an hour. He is in sinus tachycardia. NG tube output has been 250 cc over the past 8 hours and the output from the J-tube is minimal at this point in time. Urine output is quite diminished as the patient has also sustained acute kidney injury. Overall fluid balance is +4.9 L over the past 24 hours. The patient's white cell count of 5.7 with a hemoglobin 9.9 and platelet count of 172. BUN is 72 with a creatinine of 2.8 and sodium levels at 143. The calcium level is at 6.5. LFTs are normal. Triglyceride level is at 315. On 11/27/2023, the patient remains critically ill. Remains intubated and on mechanical ventilator, still awaiting shock which is essentially septic shock. Remains on propofol which is running at 50 mcg/kg/min. Remains on the mechanical ventilator, assist-control mode with rate of 28, tidal volume of 550 with an FiO2 of 60% with a PEEP of 5. Blood gas shows a pH of 7.29 with a pCO2 of 47 and pO2 of 78. The patient had a follow-up chest x-ray that showed lower lobe consolidation slightly worse on the right and the orotracheal tube is in a good location. Urine output is diminished in the order of 5 to 10 cc an hour and the patient is also developing progressive worsening renal function. Remains on normal citrate of 150 cc an hour and the patient was started on TPN which is running at 30 cc an hour. He has a triple-lumen catheter in his left subclavian. Overall fluid balance over the past 24 hours is +3.9 L. Output from the NG tube and the J-tube is minimal. Hemodynamically, he is hypotensive and norepinephrine running at 0.45 mcg/kg/min. Vasopressin is a physiologic dose. He received amiodarone and he remains on maintenance amiodarone of 0.5 mg/min and the patient continues to be in atrial fibrillation and is having episodes of tachycardia. The white cell count is at 13, hemoglobin 9.4 platelet count is pending. The patient's BUN is 83 with a creatinine of 3.7. Sodium is at 140 with a potassium level of 5.5 dropped down to 4.4 as the sample was hemolyzed. LFTs are normal. Abdominal wound is dry clean and intact. RAYA drainage is essentially serous at this point in time. 11/28/2023, the patient is being seen for a follow-up. The patient remains intu bated on mechanical ventilator. This morning, the patient tolerated propofol drip running at 50 mcg/kg/min. The patient is on mechanical ventilator assist- control mode with rate of 28, tidal volume of 550, FiO2 55% with a PEEP of 5. Chest x-ray shows stable findings with lower lobe consolidations bilaterally. Blood gas shows a pH of 7.32 with a pCO2 38 and pO2 90. Neuropathy has improved and the patient is producing approximately 30 cc an hour and the overall input output balance is +3.3 L over the past 24 hours. The patient is still on pressors although his pressor requirements have improved since yesterday. He is on norepinephrine which is running at 0.05 mcg/kg/min and vasopressin physiologic dose. Also, the patient on amiodarone drip regarding his chronic ongoing atrial fibrillation. Amiodarone drip is running at 0.5 mg/min. Nevertheless, the rate is under much better control. Noted the patient was given a dose of digoxin 0.5 mg IV yesterday which helped with rate control. Remains on normal citrate of 150 cc an hour. Remains on TPN at 40 cc an hour. Output from the J-tube is fecal. Output from the NG tube is more gastric. Surgical wound site is dry clean and intact. Sputum Gram stain and culture showing Pseudomonas and Citrobacter. Note that the Citrobacter was intermediate resistance to Zosyn. This will be discussed further with infectious disease. Blood cultures are still pending for now. They have negative based on the most recent check. Blood work from today shows WBC count 11.2, hemoglobin 7.9 and platelet count of 46. Sodium is at 140, potassium is at 4.3, chloride is 114 with a bicarb of 18. He has 93 and the creatinine is 4.8. Serum random vancomycin level is at 25.7. On 11/29/2023, the patient is being seen for a follow-up. Remains intubated on the mechanical ventilator. The patient sedated on propofol which is running at 35 mcg/kg/min. Synchronous with mechanical ventilator. On today's evaluation, he is on assist-control mode with rate of 28, tidal volume of 550, FiO2 55% with a PEEP of 5. Chest x-ray shows lower lobe consolidation bilaterally worse on the right and the orotracheal tube is in good location. The blood gas showed a pH of 7.34 with a pCO2 of 35 and a pO2 of 84. No significant orotracheal secretions. Hemodynamically improved compared to yesterday. In fact, the patient is on minimal norepinephrine that was discontinued earlier this morning. The patient has converted to normal sinus rhythm. Remains on amiodarone at 0.5 mg/min. Overall fluid balance over the past 24 hours is 2.4 L positive. Urine output has been adequate and the patient is currently on IV Lasix. Nevertheless, the patient has developed progressive worsening renal function. Creatinine is up to 5.3 on today's evaluation with a potassium level of 4.4. Serum bicarb is at 18 with an anion gap of 9. WBC count is at 8.1 with a hemoglobin of 7 and a platelet count of 32 which has dropped compared to earlier evaluation. The rest of the coagulation profile was normal from 11/28/2023. Fibrinogen level is slightly elevated. Sputum samples have shown a combination of Citrobacter and Pseudomonas aeruginosa. Based on cultures and sensitivities, the patient will be taken off his IV Zosyn and he will be switched to IV merop enem. Output from the J-tube is fecal. Output from the NG tube is gastric and surgical wound site is dry clean and intact. He is afebrile for now. Hemodynamically, the patient is doing better. He remains on TPN for nutritional support. IV fluids are also running at a rate of 75 cc an hour. Remains on vancomycin. 11/30/2023, the patient is being seen for a follow-up. The patient remains on propofol at 50 mcg/kg/min. Ventilator settings are essentially unchanged. The patient remains on assist-control mode with rate of 18, tidal volume of 400, FiO2 50% with a PEEP of 5. The blood gas showed a pH of 7.37 with a pCO2 of 43 and pO2 of 127. Chest x-ray shows no significant interval change. Patient remains on normal saline at rate of 75 cc an hour and TPN at rate of 35 cc an hour. Fluid balance is positive. Hemodialysis was performed yesterday and the second session of hemodialysis to be done today. The patient's urine output is in the order of 20 to 30 cc an hour. The patient has an NG output of 350 cc for yesterday and the drainage from the J-tube is in the order of 400 cc over the past 24 hours. The blood work shows a WBC count of 10.8, hemoglobin 8.1 and platelet count of 41. Platelet counts are essentially stable and slightly improved compared to yesterday. The sodium level is at 133, potassium is at 4.3, BUN is 93 with a creatinine of 3.6. LFTs are within normal limits. Albumin is down to 2.1. The patient is currently on no pressors. Norepinephrine and vasopressin are both discontinued and the patient remains in normal sinus rhythm. No other significant events overnight. Family has been updated on his condition. Antibiotic coverage is currently with IV meropenem. Vancomycin and Zosyn have been both discontinued. On 12/01/2023, the patient remains sedated on propofol which is running at 25 mcg/kg/min., Comfortable and synchronous mechanical ventilator. The patient remains on assist-control mode rate of 28, tidal volume of 550, FiO2 40% and PEEP of 5. Blood gas shows a pH of 7.49 with a pCO2 of 34 and pO2 of 121. Patient underwent hemodialysis yesterday. No plans for hemodialysis today the patient is producing urine output. Remains on TPN for nutrition support rate of 75 cc an hour. IV fluids are currently at KVO. The chest x-ray from today shows bilateral lower lobe consolidation worse on the right. No significant change in the volume status. The patient continues to have third spacing and edema in all 4 extremities. Nevertheless, urine output is adequate at this point in time and the patient remains on Lasix 80 mg IV every 12 hours. Remains NPO. NG tube and J-tube are both drainage. Output is noted. Remains on IV meropenem. Afebrile. Currently on no pressors. Blood work shows a WBC count of 11.4, hemoglobin of 8.1 and platelet count of 46. Sodium is at 131, potassium level is at 3.7, chloride 101 and bicarb is at 24. BUN is 84 with a creatinine of 3.6. Glucose of 228. LFTs are within normal limits. Patient was reevaluated today on 12/02/23, patient remains in the ICU, patient is familiar to my service, I saw this patient 3 weeks ago. Since then he had a very complicated hospital course, related to his jejunostomy tube dislodging and leaking and picture of abdominal sepsis and worsening pneumonia/ARDS. Patient had to be placed back on mechanical ventilation, and he is now intubated and mechanically ventilated. He is on assist-control rate of 20 tidal volume 550 FiO2 40% PEEP of 5 ABG showed a pO2 of 111 pCO2 38 pH of 7.43 and I cut down his FiO2 to 35% and increase his flow rate from 60-70. Patient remains on TPN at 75 cc/h he is on propofol at 25 mcg/kg/min patient is on Cleviprex which I added today for elevated blood pressure. Receiving Lasix 80 mg every 12 hours is also on Merrem as per infectious disease. Patient is on hemodialysis and being followed by nephrology. Patient required multiple abdominal surgeries since his initial admission. Chest x-ray continues to show worsening pneumonia involving both lungs, right more so than left, I suspect there may be a component of ARDS. His initial presentation was the presentation of aspiration pneumonia to begin with and that was 3 weeks agoWBC count is 10.3 hemoglobin 8.6 sodium 131 potassium 4 chloride 100 bicarb 23 BUN is 111 creatinine 4.02 blood sugar is 248. Albumin is 1.9 Patient was evaluated today on , patient remains in the ICU, intubated and mechanically ventilated. Patient is on assist-control rate of 20 tidal volume 550 FiO2 35% and PEEP of 5 ABG showed a pO2 of 99 pCO2 39 pH of 7.44 patient is undergoing hemodialysis today, and the plan is to remove 2 L. He is remains on propofol at 35 mcg/kg/min, remains on TPN at 75 cc/h. Remains on Merrem. Patient is not requiring any pressors today. Yesterday patient did not tolerate to be off sedation long enough, and today we tried the same sedation interruption, and the patient did not do well post interruption of sedation, became extremely agitated restless, tachycardic, and could not fully assess mental status off sedation. Hence the patient was placed back on AC mode of mechanical ventilation, and the plan is to continue the same supportive care measures. Family updated on his condition and most likely the patient will end up requiring tracheostomy in the next few days.WBC count is 8.5 hemoglobin 8.2 basic metabolic profile is relatively unremarkable BUN is 89 creatinine 3.45 chest x-ray today showed stable chest, suspect some right-sided pleural effusion which would likely improve with hemodialysis/ultrafiltration. X-ray of abdomen showed nonspecific nonobstructive bowel gas pattern Patient was seen today on 12/04/2023, remains in the ICU, intubated mechanically ventilated, on assist-control rate of 20 tidal volume 550 FiO2 35% PEEP of 5 ABG showed a pO2 of 112 pCO2 38 pH of 7.45, hence no changes were made in ventilator settings. Patient is on propofol at 35 mcg/kg/min he is also on IV fluid at KVO TPN at 75 cc/h. Remains on hemodialysis remains on Lasix 80 mg IV push twice daily, remains on Merrem. This x-ray continues to show the same findings/airspace disease in both lungs, not much of a change in the last 2 days, however his oxygenation seems to be improved. WBC count is 7.1 hemoglobin 7.7. Electrolytes are normal, BUN is elevated 77 creatinine 3.32, patient is on hemodialysis. His condition was discussed today with the at bedside, and I do not believe the patient is ready to be weaned or extubated, however he seems to get extremely agitated when he goes off propofol, today I plan to transition propofol to Precedex, give him a trial on Precedex and determine whether the patient becomes more appropriate and at least ready for any weaning trials. Clinically I doubt if this will happen but we will go ahead and try Patient was evaluated today on 12/05/2023, remains in the ICU, intubated mechanically ventilated, not much of a change noted in the last 24 hours. Remains on assist-control of 20 tidal volume 550 FiO2 35% PEEP of 5 ABG showed a pO2 of 90 pCO2 37 pH of 7.48 hence chose not to change any of his ventilator settings. Yesterday the patient failed again trial of weaning, and he was never anywhere near ready to be weaned in spite of placing him on Precedex and off propofol, at 1 point the patient became extremely agitated restless and he was biting on the endotracheal tube could not fully awake the patient and determine improvement in his mental status. Hence patient was placed back on propofol yesterday and he remains on propofol today. He is on propofol at 25 mcg/kg/min he is on TPN at 75 cc/h surgery is considering starting his J-tube feedings today. Remains on hemodialysis remains on Merrem remains on Lasix 80 mg IV push twice daily overall not much of a change his chest x-ray is basically about the same showing bibasilar airspace disease. Today I had a discussion with the regarding the option of tracheostomy extremely reluctant to have it done yet. Said that the patient had multiple complications with previous surgeries and she is afraid that he is going to have another complication with the surgeryWBC count is 10.2 hemoglobin is 8, basic metabolic profile is normal sodium 130 BUN 70 creatinine 2.89 Patient was seen today on 12/06/23, remains in the ICU, intubated mechanically ventilated, his ventilator settings are assist-control rate 20 tidal volume 550 FiO2 35% and PEEP of 5 ABG showed a pO2 of 103 pCO2 36 pH of 7.47 patient opens eyes but does not follow any other instructions. He is now off propofol for the last 24 hours, he is maintained on Precedex at 0.4, TPN at 75 cc/h vital AF at 5 mL/h. Patient remains on Merrem, patient did not receive dialysis today because issues related to occluded dialysis catheter. Nonetheless the patient is making urine, and continues to improve with diuretics. 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 Blood sugar is 226. Family is at bedside, considering his overall mental status at this point, not quite ready to start checking weaning parameters, and is not ready for weaning. Nonetheless I plan to keep him on Precedex, and hopefully avoid narcotics and other sedatives. His mentation starts clearing a bit more, then will start trials of weaning parameters and/or weaning trials Patient was seen today on 12/07/2023, remains in the ICU, intubated and mechanically ventilated, on assist-control rate of 20 tidal volume 550 FiO2 35% PEEP of 5 ABG showed a pO2 of 83 pCO2 33 pH of 7.50 hence the tidal volume was cut down to 500. Patient remains off propofol remains off narcotics is only on Precedex for sedation at 0.6 mg/kg/h. He is on norepinephrine at 0.02 TPN at 75 cc/h IV fluid at KVO vital AF at 10 mL/h is also on Merrem. Neurologically I am concerned about this patient neurological status, does not seem to be waking up much, he opens his eyes but does not follow any instructions and spite of sedation hold for quite some time. Hence I am recommending a CT of the brain and multiple recommending a neurological consultation on this patient. WBC count is 18 7 hemoglobin is 8.4, basic metabolic profile is normal BUN is 75 creatinine 2.95, patient is back on dialysis, he had a new hemodialysis catheter placed yesterday by vascular surgery, and he will be restarted back on hemodialysis. CT of the brain done shortly after evaluating the patient showed no acute intracranial process chest x-ray basically about the same, continues to show small left and moderate right basilar infiltrate. Has not changed much over the last 1 week, patient remains on antibiotics. Patient was seen today on 12/08/2023, remains in the ICU, intubated and mechanically ventilated, remains on assist-control rate of 20 tidal volume 500 FiO2 35% PEEP of 5 ABG showed a pO2 of 88 pCO2 37 pH of 7.47 hence no changes were made in ventilator settings. Chest x-ray is showing slight increase in his right-sided pleural effusion, however his oxygenation seems to be about the same, and the patient is responding to Lasix given at 80 mg IV push every 12 hours, he is also doing well with hemodialysis he had 2 L removed yesterday and 2 L the day before. Hence will not recommend thoracentesis at this point. But the pleural effusion will need to be closely monitored. Patient remains off propofol he is on Precedex at 0.6 mcg/kg/h. For the last 2 days, and his mentation is not much different from baseline. Continues to open his eyes and does not follow any other instructions has the patient is clearly not ready for weaning trials or extubation. Brought up the issue of tracheostomy again with the , she is still reluctant to proceed with tracheostomy on him at this point. Patient remains on Merrem, remains on TPN but his enteral feeding will be advanced today to full goal, and if that happens then we will can discontinue TPN. Patient is receiving vital AF 1.2@10 mL/h at this point.WBC count is 19.3 hemoglobin 7.6. Basic metabolic profile is normal BUN is 72 creatinine 2.99 blood sugar ranging between 250 up to 334. 12/09/23 - patient seen at bedside today, remaining in the ICU, intubated and mechanically ventilated, remaining on assist-control rate of 20, tidal volume 500, FiO2 30%, PEEP of 5 and oxygen saturation of 100%. Patient is on day 27 of his hospital stay (admitted 11/11), day 15 of this current ICU stay (readmit to the ICU 11/24) and day 15 of this current period of time on the ventilator (placed 11/24). ABG showed pO2 100, pCO2 36, pH 7.47. Chest x-ray was deemed to be stable, however possibly with slight improvement noted on the left with a right-sided pleural effusion remains evident however the patient's oxygenation remains to be about the same. Continue to receive 80 mg IV Lasix every 12 hours and is receiving daily hemodialysis, in which he has been having 2 L removed the past couple of days, hemodialysis yet to occur today. His creatinine is 3.57 (compared to 2.99 yesterday) and BUN 98 (compared to 72 yesterday). Due to this response to diuresis and hemodialysis, no thoracentesis recommended at this point however pleural effusion will need to continue to be monitored. Patient shon off propofol, he is on Precedex at 0.4 mcg/kg/h. Due to his mentation remaining near baseline, neurology had been consulted who ordered an EEG which showed diffuse background slowing of his severe degree which is suggestive for generalized cerebral dysfunction and can be seen with toxic metabolic encephalopathy, as well as the presence of sporadic intermittent, some higher amplitude, sharply contoured waves of generalized distribution. Because of this per neurology's recommendation, patient started on Keppra 500 mg twice daily. The patient does seem to be having some improved mentation, with opening his eyes and responding to commands some of this morning. Spontaneous breathing trial to be attempted today, to see if the patient will be able to come off of mechanical ventilation. If that is unable to occur, discussed with the patient as well as his and one of his daughters that a tracheostomy would be the most appropriate next course of action due to the potential dangers of sustained endotracheal intubation for prolonged period of time. The , while reluctant, seem to acknowledge that this is the appropriate course of action. He remains receiving meropenem 1 g nightly. He remains on TPN 75 mL/h, which she has been on since 11/21 (18), but his enteral feeding has been vital 1.2 AF at 10 mL/h with a goal rate of 80 mL/h. Patient drained 60 mg of serosanguineous fluid from his RAYA. His WBCs increased to 21.5 (compared to 19.3 yesterday), hemoglobin dropped to 7.2 (compared to 7.6 yesterday), hematocrit dropped to 22.0 (compared to 22.9 yesterday) and patient procalcitonin remains elevated at 3.07. 12/10/23 - Patient seen at bedside today, remaining in the ICU, intubated and mechanically ventilated, remaining on assist-control rate of 20, tidal volume 500, FiO2 30%, PEEP of 5 and oxygen saturation of 100%. Patient is on day 28 of his hospital stay (admitted 11/11), day 16 of this current ICU stay (readmit to the ICU 11/24) and day 16 of this current period of time on the ventilator (placed 11/24). ABG showed pO2 93, pCO2 37, pH 7.47, showing evidence of a mild metabolic alkalosis. Chest x-ray today showed stable disease compared to yesterday. He received levo overnight due to atypical blood pressure, patient's TPN was up to 120 due to the change in formula. Patient is scheduled to undergo tracheotomy today (12/09) at 16:30. Per the nurse and the overnight staff patient continues to open his eyes and shows some responsiveness to commands. Per nephrology's recommendation dialysis to be held today due to the patient going for the tracheotomy later, as well as the dip in blood pressure seen after yesterday's dialysis session which required Levophed. Patient's Hgb this morning 6.6, will be given 1 unit today, which will be the second unit he has received during his hospital course. Patient's airway resistance noted to be 3.3 cm/L/s, static lung compliance shown to be 45 mL/cm H2O and dynamic compliance 33 mL/cm H2O. 12/11/23 - Patient seen at the bedside, remaining in the ICU, with a tracheotomy tube and mechanically ventilated while receiving dialysis. Patient remains on assist-control rate of 20, FiO2 30%, PEEP of 5 and has an oxygen saturation of 97%. Patient is on day 29 of the hospital stay (admitted 11/11), day 17 of his current ICU stay (readmitted to the ICU 11/24) and day 17 of his current period of time on the ventilator (placed 11/24). ABG today showed pO2 115, pCO2 38, pH 7.44 continuing to show evidence of a mild metabolic alkalosis. Chest x-ray today showed stable disease. Patient had tracheotomy placed yesterday afternoon (12/09) without any complications. Patient has had 3 consecutive days of attempting spontaneous breathing trials in an effort to wean the patient off the ventilator, all of which failed to this point. Beginning today the patient's antibiotics (meropenem) will be discontinued and we will begin weaning his propofol down from 25 mcg/kg/min. As the patient is weaned off of the propofol, 0.5 Dilaudid and 1 mg IV Ativan to be used every 6 hours as needed. Patient is continuing to receive normal saline 20 cc/h, and has a total of 200 mL of serosanguineous fluid from his RAYA drain. TPN to continue at a rate of 120 mL/h additionally tube feeds, which had been held due to the patient receiving straight catheter yesterday, will be restarted today with an ultimate goal being to receive enteral nutrition at a rate of 80 mL/h. TPN to continue until able to increase the enteral nutrition to at least 50 mL/h, as per the dietitian's recommendation. Will be exploring the possibility of the patient being moved to select specialty. 12/12/23 - Patient seen at the bedside this morning, in ICU room 253, while receiving and EEG, no significant events overnight. Patient remains with tracheotomy and is mechanically ventilated on assist control with a rate of 20, tidal volume 500, FiO2 30%, PEEP of 5 with an oxygen saturation of 98%. Patient is on day 30 of the hospital stay (admitted 11/11), day 18 of his current ICU stay (readmitted to the ICU 11/24) and day 18 of his current period of time with mechanical ventilation (placed in 11/24). ABG today showed pO2 92, pCO2 36, pH is 7.49 continue to show signs of a combined respiratory and metabolic alkalosis. WBC 17.9, Hgb 7.4, Hct 22.6, PLT 151; sodium 133, potassium 4.0, HCO3 27, BUN 88, creatinine 2.96. Chest x-ray done today continuing to show patchy infiltrate throughout the right lung with layering effusion. Patient is continuing to receive normal saline 20 cc/h, continues to receive Dilaudid 0.5 mg IV push every 6 hours as needed, as well as Ativan 1 mg IV every 6 hours as needed. Patient is no longer maintained on propofol. TPN continues at a rate of 120 mm/h and EN vital AF at 30 mL/h with a goal of 40 mL/h. Once goal is reached, TPN can be discontinued and patient will be switched over to Nepro 50 mL/h. Following the patient having 3 consecutive days of attending spontaneous breathing trials and effort to wean, we will begin trying the patient with CPAP and pressure support in effort to wean, today's trial the patient will be placed on PS 5 and PEEP of 5 for 25-45 minutes, or as he is able to tolerate it. Discussed with the patient's the importance of continuing to wean the patient's with trials, in an effort to build up some of the strength in his lungs to better be able to tolerate breathing on his own. Will continue to evaluate for possible placement in a long-term acute care facility. 12/13/23 - Patient seen at the bedside this morning, in ICU room 253, with no significant events overnight noted. Patient remains with tracheotomy and is mechanically ventilated on assist control with a rate of 20, tidal volume 500, FiO2 30%, PEEP of 5 with an oxygen saturation of 98%. Patient is on day 31 of the hospital stay (admitted to 11/11), day 19 of his current ICU stay (readmitted to the ICU 11/24) and day 19 of his current period of time with mechanical ventil ation (placed 11/24). ABG today showed pO2 87, pCO2 36, pH 7.48 continue to show signs of a combined respiratory metabolic alkalosis. WBC 17.3, Hgb 8.0, Hct 25.3, PLT 191; sodium 136, potassium 4.1, BUN 116, creatinine 3.17. This x-ray done today continues to show stable disease. Patient had an EEG completed yesterday (12/11) which showed an abnormal EEG, study being limited because of diffuse myogenic artifact. Background slowing suggestive of severe encephalopathy. Otherwise no appreciable epileptiform discharges, focal slowing, or seizure noted during the exam. Patient continues to receive Dilaudid 0.5 mg IV push every 6 hours as needed, as well as Ativan 1 mg IV every 6 hours as needed. Patient's TPN has been stopped, he is not receiving Nepro at 50 mL/h, which is goal. Patient Solu-Medrol has been discontinued, patient now receiving 30 mg prednisone daily. Patient's trial yesterday with CPAP and pressure support with the patient was sent PS of 5 and PEEP of 5, patient cary rated 40 minutes well it was noted that his respiratory rate increased and his minute ventilation also increased during this time. Will continue with another weaning effort today and continue to reassess how the patient tolerates. He will be receiving hemodialysis today, with the plan to hold over the weekend and then reassess Saturday per nephrology. Additionally IV Lasix has been discontinued on this patient, nephrology did state that he may need to resume receiving the Lasix if the urine output tapers. Progress note dated December 14, 2023. The patient is seen today in room 253. The patient remains on the mechanical ventilator. His settings include volume assist-control, rate 20, tidal volume 500, FiO2 30%, PEEP of 5. Blood gases show pO2 of 76, pCO2 of 36, pH of 7.47. The patient is getting saline at 10 cc an hour, and Nepro at 50 cc an hour which is goal. The patient will go back on pressor support of 5 and CPAP of 5 today. Yesterday, he spent 2-1/2 hours on pressure support. The patient did have a temperature last night. He discussed some purulent drainage at the wound site. I have asked surgeon to come back and see the patient. In addition, the nurse will get blood, urine, sputum, and wound cultures going. He is not on any antibiotics. We will check a procalcitonin level. White count of 16.7, hemoglobin 8.1, hematocrit 24.5, platelet count is normal. Sodium 135, potassium 3.9, chlorides 103, CO2 24, BUN 106, creatinine 3.04. Calcium is 7.1. Magnesium is 2.0. Urine is yellow, with 1+ protein, 6 WBCs, and rare bacteria. Chest x-ray shows a stable chest x-ray, which is largely unchanged. Progress note dated December 15, 2023. 73-year-old male seen again in room 253. The patient remains on mechanical ventilator. Blood gases show pO2 of 78, pCO2 of 36, pH of 7.47. The patient is getting saline at KVO, and Nepro at 50 cc an hour which is goal. The patient did a spontaneous breathing trial yesterday, and went about 6 hours on PSV 5, CPAP of 5. The patient's procalcitonin level was elevated at 1.92. We added back Zosyn. Yesterday we did sputum, blood, urine, and wound cultures. The patient will have another spontaneous breathing trial today. Current labs include a white count 16.3, hemoglobin 7.5, hematocrit 22.6, and a normal plat elet count. Sodium 138, potassium 3.5, chlorides 105, CO2 24, BUN 125, and creatinine 3.22. Glucose is 220. Calcium is 6.9. Chest x-ray shows a right- sided pleural effusion, and some similar changes, to the previous x-ray. 12/16/23 - Patient seen at the bedside this morning, in the ICU room 253, he was noted to have a temperature of 101.1 F this morning, no other significant events overnight noted. Patient remains a tracheotomy and continues mechanical relation assist-control with a rate of 20, tidal volume 50, FiO2 30%, PEEP of 5 continue saturating over 90%'s. Patient is on day 34 of the hospital stay (admitted on 11/11), day 22 of his current ICU stay (readmitted to the ICU 11/24) and day 22 of his current. Time with mechanical ventilation (placed 11/24). ABG today showed pO2 74, pCO2 31, pH 7.51 showing continued signs of combined respiratory metabolic alkalosis. He continues to receive Nepro 50 cc/h, which is goal. WBCs 18.9, Hgb 7.1, hct 22.3, PLT 238, sodium 141, potassium 3.5, BUN 131, creatinine 3.40. Preliminary blood cultures positive for gram-positive cocci in clusters, Staphylococcus species (SSPE), Staph epidermidis (SEPI), MECA (mecA/C) all detected. Wound culture positive for rare Alejandra albicans and sputum culture positive for Pseudomonas. Will continue on Zosyn, and start vancomycin (previously received 1 dose). Will begin tapering the patient Solu- Medrol use, he will not receive 20 mg IV daily a reduction from the previous 40 mg IV daily. Additionally, we will discontinue utilizing Ativan and will be transition to Precedex 0.2 mcg/kg/h. Chest x-ray done today was reviewed and showed increasing apical cavitary lesion on the right side as compared to yesterday. Will hold off on dialysis today, as creatinine remains stable and he has been producing good urine. Additionally, will not attempt a weaning trial today as the patient has been unable to tolerate without difficulty REVIEW OF SYSTEMS: Could not be assessed, with tracheotomy patient on mechanical ventilation and sedated. PHYSICAL EXAMINATION: General: Revealed 73-year-old male with tracheotomy, mechanically ventilated, sedated, on propofol 25 mcg/kg/min with the goals of weaning. Supine position 96% O2 saturation, 30% FiO2 and PEEP of 5 Skin: Skin is warm and dry and no rashes or lesions are noted. HEENT: Pupils are round and equally reacting to light. EOMI. No scleral icterus. No conjunctival pallor. Normocephalic, atraumatic. No pharyngeal erythema. No thyromegaly. Cardiovascular: There is a regular rate and rhythm. No murmur, rub or gallop is appreciated. Respiratory: Diminished breath sounds and crackles at the bases no rhonchi no wheezes Gastrointestinal: J-tube is noted RAYA drain is noted NG tube is in place mild abdominal distention, no rebound, no guarding, no bowel sounds, no significant leak noted from the tubes in the abdomen. Musculoskeletal: No deformities and no limitation range of motion Neurological: Patient does not follow any instructions opens eyes and does not follow any instructions; seems to be following some commands this morning, will continue to monitor Extremities: Trace of bipedal edema as well as some edema noted of the upper extremity Assessment and plan # Acute hypoxic respiratory failure requiring intubation mechanical ventilation secondary to aspiration during upper endoscopy most likely secondary to gastric outlet obstruction Continue ventilatory support Continue DuoNeb 3 mL elation 4 times daily, Solu-Medrol 40 mg IV daily Will continue to attempt spontaneous breathing trials as per minutes with the patient, the goal of eventual extubated the patient Tracheotomy scheduled for 12/09; tracheotomy completed without complication Continue trialing the patient with pressure support of 5 and CPAP 5, today's trial will be 30-45 minutes, or as tolerated Patient tolerated well on 12/11, with noted increased respiratory rate as well as minute ventilation Trialing will continue to follow for strengthening of the patient's muscles of respiration, and return to her adequate strength and ability to breathe on his own Continuing to evaluate for placement of a long-term acute care facility # Paroxysmal atrial fibrillation - resolved at the moment Normal on telemetry, patient noted to be in A-fib with RVR Patient was started on amiodarone drip Amiodarone discontinued, patient was on Lopressor 12.5 twice daily however also discontinued # CRISTAL secondary to sepsis and septic shock Patient receiving hemodialysis since 11/28 Noted hyperkalemia and dialysis catheter center dialysis completed on 12/05 New dialysis catheter placed 12/06 dialysis was resumed Will receive hemodialysis today (12/12), with plan to hold hemodialysis over the weekend and reassess on Saturday IV Lasix, patient was received 80 mg every 12 hours, to be discontinued - Per nephrology this is okay for now however will need to resume with urine output tapers Will hold hemodialysis for now, patient's creatinine remains consistent and he is producing good urine we will continue to monitor urine output # Acute aspiration at night as secondary to acute aspiration during upper endoscopy most likely secondary to gastric outlet obstruction secondary to non- Hodgkin's lymphoma based on the pathology from stomach biopsies Patient on meropenem 1 g daily, day 11 after starting meropenem Patient had been on IV Zosyn and vancomycin have been discontinued Has received 14 days total of antibiotics, combined Zosyn, vancomycin, meropenem Discontinued antibiotics following prolonged course # Leukocytosis possibly secondary to acute apical cavitary lesion in the right lung or unknown source of infection His WBCs have been decreasing for 5 consecutive days down to 16.3 yesterday, before increasing again to 18.9 today Patient also spiked a fever this morning of 101.1 F, which matches his Tmax over the past 5 days Was started on Zosyn on 12/04, will continue with Zosyn (day 2 of Zosyn) Was given a singular dose of vancomycin on 12/14, will continue with vancomy harley (day 2 of vancomycin) Continue to monitor progression with daily chest x-ray and with CT chest and abdomen/pelvis (when possible) to review for possible source of infection # Weight loss secondary to non-Hodgkin's lymphoma Patient had noted 22 pound weight loss for the past 4 months Biopsy-proven high-grade non-Hodgkin's diffuse large B-cell lymphoma Patient had port placement in regards to future treatment, deferring to medical oncology management, who states the left the patient follow-up in the clinic to determine course of treatment Per oncology team, upon review of the pathology there is no lymphoma present instead he was deemed to be ischemic colitis with necrosis; possibly attributing the weight loss to gastric outlet obstruction as opposed to lymphoma # 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 Patient had port placement in regards to future treatment, deferring to medical oncology management, who states the left the patient follow-up in the clinic to determine course of treatment Per oncology team, upon review of the pathology there is no lymphoma presents that he was deemed to have ischemic colitis with necrosis # Anemia Patient's Hgb this morning 6.6; patient receiving 1 unit today Continue to monitor patient's Hgb daily If Hgb drops below 7, transfuse # Acute peritonitis secondary to status post J-tube placement 11/16/2023 # Septic shock secondary to status post J-tube placement 11/16/2023 GI prophylaxis: Protonix 40 mg twice daily Nutrition: TPN has been stopped, he is now receiving Nepro 50 cc/h (which is goal) Continue to monitor vital signs, monitor CBC, monitor CMP Continue telemetry monitoring. Continue with symptomatic treatment Resume home medication Further condition as per the clinical course of the patient Dictation was produced using [employer] dictation software. please excuse any grammatical, word or spelling errors. Objective - Vital Signs Vital signs: Vital Signs Temp 101.1 F H 12/16/23 08:00 Pulse 96 12/16/23 09:00 Resp 17 12/16/23 09:00 BP 99/65 12/16/23 09:00 Pulse Ox 94 L 12/16/23 09:00 FiO2 30 12/16/23 09:17 Intake & Output 12/15/23 12/16/23 12/16/23 18:59 06:59 18:59 Intake Total 941 1106 191 Output Total 1220 1100 185 Balance -279 6 6 Weight 98.5 kg 98.5 kg Intake: IV 156 326 61 0.9 KVO 120 190 30 Normal Saline Pressure 36 36 6 Saline Piperacillin-Tazobactam 3 100 .375 gm In Sodium Chloride 0.9% 100 ml @ 25 mls/hr IVPB Q8HR [facility] Rx# :[id number] Piperacillin-Tazobactam 3 25 .375 gm In Sodium Chloride 0.9% 100 ml @ 25 mls/hr IVPB Q8HR [facility] Rx# :[id number] Tube Feeding 600 600 100 Other 185 180 30 Output: Drainage 180 100 Right Abdomen 180 100 Urine 1040 1000 185 Other: Voiding Method Indwelling Catheter Indwelling Catheter # Bowel Movements 1 ABP, PAP, CO, CI - Last Documented Arterial Blood Pressure 114/45 - Labs CBC & Chem 7: 12/16/23 04:40 12/16/23 04:40 Labs: Abnormal Lab Results - Last 24 Hours (Table) 12/15/23 12/16/23 12/16/23 Range/Units 23:52 04:40 04:40 WBC 18.9 H (3.8-10.6) k/uL RBC 2.61 L (4.30-5.90) m/uL Hgb 7.1 L (13.0-17.5) gm/dL Hct 22.3 L (39.0-53.0) % RDW 19.7 H (11.5-15.5) % Neutrophils # 17.3 H (1.3-7.7) k/uL ABG pH (7.35-7.45) ABG pCO2 (35-45) mmHg ABG pO2 (83-108) mmHg ABG Total CO2 (19-24) mmol/L Hemoglobin (13.0-17.5) gm/dL Chloride 109 H (98-107) mmol/L BUN 131 H* (9-20) mg/dL Creatinine 3.40 H (0.66-1.25) mg/dL Glucose 211 H (74-99) mg/dL POC Glucose (mg/dL) 137 H (70-110) mg/dL Calcium 7.0 L (8.4-10.2) mg/dL 12/16/23 12/16/23 Range/Units 05:21 06:38 WBC (3.8-10.6) k/uL RBC (4.30-5.90) m/uL Hgb (13.0-17.5) gm/dL Hct (39.0-53.0) % RDW (11.5-15.5) % Neutrophils # (1.3-7.7) k/uL ABG pH 7.51 H (7.35-7.45) ABG pCO2 31 L (35-45) mmHg ABG pO2 74 L (83-108) mmHg ABG Total CO2 26 H (19-24) mmol/L Hemoglobin 7.3 L (13.0-17.5) gm/dL Chloride (98-107) mmol/L BUN (9-20) mg/dL Creatinine (0.66-1.25) mg/dL Glucose (74-99) mg/dL POC Glucose (mg/dL) 245 H (70-110) mg/dL Calcium (8.4-10.2) mg/dL Microbiology - Last 24 Hours (Table) 12/14/23 09:55 Gram Stain - Final Abdomen Wound Culture - Final Alejandra albicans 12/14/23 11:35 Gram Stain - Preliminary Sputum Sputum Culture - Preliminary Pseudomonas aeruginosa 12/14/23 09:46 Blood Culture Gram Stain - Preliminary Blood Blood Culture - Preliminary Molecular ID
[2023-12-16] MEDS: VANCOMYCIN 1,500 MG in SODIUM CHLORIDE 0.9% 500 ML 500 ML IVPB ONE (11:59)
[2023-12-16] MEDS: ZINC OXIDE PASTE (Z-GUARD) 1 APPLIC TOPICAL SCH (12:00)
[2023-12-16 12:06] LABS: Glucose,Whole Blood 211 mg/dL (70-110)
--- NOTE | 2023-12-16 13:01 | P.PN ---
Subjective Progress Note Date: 12/16/23 CHIEF COMPLAINT: Abdominal pain HISTORY OF PRESENT ILLNESS: Patient remains in the ICU on mechanical vent ilation. He is status post tracheostomy placement. J-tube was plugged over the weekend. It is unplugged. Nursing staff continues to flush to the J-tube. He is on tube feeds at 50 mL/h which is the goal. He did have a bowel movement. Patient has been coughing. Afebrile. WBC is up from 16.3 to 18.9. hgb 7.1 plt 238 PHYSICAL EXAM: VITAL SIGNS: Reviewed. GENERAL: no acute distress. HEENT: Tracheostomy site clean dry and intact ABDOMEN: Soft. Midline incision with evidence of dehiscence. J-tube in place. RAYA drain in place ASSESSMENT: 1. 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 Status post J-tube placement and revision for small bowel obstruction PLAN: -Continue to monitor midline incision wound dehiscence. Abdominal binder ordered -Keep patient strict n.p.o. -Do not place medications down J-tube -Continue tube feeds -Continue ICU management -Continue supportive care Physician Executive Advisor note has been reviewed by physician. Signing provider agrees with the documented findings, assessment, and plan of care. Attestation Patient seen and examined with at bedside. Tube feeds are currently at goal. J-tube appears to be functioning. Tracheostomy in place. Midline incision wound site is noted to be dehisced, however fascia is intact. Abdominal binder placed. Case discussed with patient's family with possibility of wound VAC placement, however at this time would not recommend additional procedures for the patient. Zachary Ruiz DO Objective - Vital Signs Vital signs: Vital Signs Temp 101.1 F H 12/16/23 08:00 Pulse 89 12/16/23 11:44 Resp 17 12/16/23 11:00 BP 106/68 12/16/23 11:00 Pulse Ox 94 L 12/16/23 11:00 FiO2 30 12/16/23 11:50 Intake & Output 12/15/23 12/16/23 12/16/23 18:59 06:59 18:59 Intake Total 941 1106 912 Output Total 1220 1100 530 Balance -279 6 382 Weight 98.5 kg 98.5 kg Intake: IV 156 326 522 0.9 KVO 120 190 70 Normal Saline Pressure 36 36 18 Saline Piperacillin-Tazobactam 3 100 .375 gm In Sodium Chloride 0.9% 100 ml @ 25 mls/hr IVPB Q8HR [facility] Rx# :[id number] Piperacillin-Tazobactam 3 100 .375 gm In Sodium Chloride 0.9% 100 ml @ 25 mls/hr IVPB Q8HR [facility] Rx# :[id number] Vancomycin 1,500 mg In 334 Sodium Chloride 0.9% 500 ml 500 ml @ 167 mls/hr IVPB ONCE ONE Rx#: [id number] Tube Feeding 600 600 300 Other 185 180 90 Output: Drainage 180 100 40 Right Abdomen 180 100 40 Urine 1040 1000 490 Other: Voiding Method Indwelling Catheter Indwelling Catheter # Bowel Movements 1 ABP, PAP, CO, CI - Last Documented Arterial Blood Pressure 122/49 - Labs CBC & Chem 7: 12/16/23 04:40 12/16/23 04:40 Labs: Abnormal Lab Results - Last 24 Hours (Table) 12/15/23 12/16/23 12/16/23 Range/Units 23:52 04:40 04:40 WBC 18.9 H (3.8-10.6) k/uL RBC 2.61 L (4.30-5.90) m/uL Hgb 7.1 L (13.0-17.5) gm/dL Hct 22.3 L (39.0-53.0) % RDW 19.7 H (11.5-15.5) % Neutrophils # 17.3 H (1.3-7.7) k/uL ABG pH (7.35-7.45) ABG pCO2 (35-45) mmHg ABG pO2 (83-108) mmHg ABG Total CO2 (19-24) mmol/L Hemoglobin (13.0-17.5) gm/dL Chloride 109 H (98-107) mmol/L BUN 131 H* (9-20) mg/dL Creatinine 3.40 H (0.66-1.25) mg/dL Glucose 211 H (74-99) mg/dL POC Glucose (mg/dL) 137 H (70-110) mg/dL Calcium 7.0 L (8.4-10.2) mg/dL 12/16/23 12/16/23 12/16/23 Range/Units 05:21 06:38 12:05 WBC (3.8-10.6) k/uL RBC (4.30-5.90) m/uL Hgb (13.0-17.5) gm/dL Hct (39.0-53.0) % RDW (11.5-15.5) % Neutrophils # (1.3-7.7) k/uL ABG pH 7.51 H (7.35-7.45) ABG pCO2 31 L (35-45) mmHg ABG pO2 74 L (83-108) mmHg ABG Total CO2 26 H (19-24) mmol/L Hemoglobin 7.3 L (13.0-17.5) gm/dL Chloride (98-107) mmol/L BUN (9-20) mg/dL Creatinine (0.66-1.25) mg/dL Glucose (74-99) mg/dL POC Glucose (mg/dL) 245 H 211 H (70-110) mg/dL Calcium (8.4-10.2) mg/dL Microbiology - Last 24 Hours (Table) 12/14/23 09:46 Blood Culture Gram Stain - Preliminary Blood Blood Culture - Preliminary Coagulase Negative Staph Molecular ID 12/14/23 09:55 Gram Stain - Final Abdomen Wound Culture - Final Alejandra albicans 12/14/23 11:35 Gram Stain - Preliminary Sputum Sputum Culture - Preliminary Pseudomonas aeruginosa
--- NOTE | 2023-12-16 13:14 | P.PN ---
Subjective Patient is seen for follow-up for acute kidney injury. Maintained on Precedex. Urine output at 70-100 mL per hour. Edema has improved. Scheduled for hemodialysis today. FiO2 30%. Volume status has improved significantly. Objective - Vital Signs Vital signs: Vital Signs Temp 101.1 F H 12/16/23 08:00 Pulse 89 12/16/23 11:44 Resp 17 12/16/23 11:00 BP 106/68 12/16/23 11:00 Pulse Ox 94 L 12/16/23 11:00 FiO2 30 12/16/23 11:50 Intake & Output 12/15/23 12/16/23 12/16/23 18:59 06:59 18:59 Intake Total 941 1106 912 Output Total 1220 1100 530 Balance -279 6 382 Weight 98.5 kg 98.5 kg Intake: IV 156 326 522 0.9 KVO 120 190 70 Normal Saline Pressure 36 36 18 Saline Piperacillin-Tazobactam 3 100 .375 gm In Sodium Chloride 0.9% 100 ml @ 25 mls/hr IVPB Q8HR [facility] Rx# :[id number] Piperacillin-Tazobactam 3 100 .375 gm In Sodium Chloride 0.9% 100 ml @ 25 mls/hr IVPB Q8HR [facility] Rx# :[id number] Vancomycin 1,500 mg In 334 Sodium Chloride 0.9% 500 ml 500 ml @ 167 mls/hr IVPB ONCE ONE Rx#: [id number] Tube Feeding 600 600 300 Other 185 180 90 Output: Drainage 180 100 40 Right Abdomen 180 100 40 Urine 1040 1000 490 Other: Voiding Method Indwelling Catheter Indwelling Catheter # Bowel Movements 1 ABP, PAP, CO, CI - Last Documented Arterial Blood Pressure 122/49 - Exam patient is on the vent. Examination of the heart S1 and S2 Examination of the lungs bilateral breath sounds are heard Abdomen is soft dressed, RAYA drain noted Examination of lower extremities shows edema 1+ - Labs CBC & Chem 7: 12/16/23 04:40 12/16/23 04:40 Labs: Abnormal Lab Results - Last 24 Hours (Table) 12/15/23 12/16/23 12/16/23 Range/Units 23:52 04:40 04:40 WBC 18.9 H (3.8-10.6) k/uL RBC 2.61 L (4.30-5.90) m/uL Hgb 7.1 L (13.0-17.5) gm/dL Hct 22.3 L (39.0-53.0) % RDW 19.7 H (11.5-15.5) % Neutrophils # 17.3 H (1.3-7.7) k/uL ABG pH (7.35-7.45) ABG pCO2 (35-45) mmHg ABG pO2 (83-108) mmHg ABG Total CO2 (19-24) mmol/L Hemoglobin (13.0-17.5) gm/dL Chloride 109 H (98-107) mmol/L BUN 131 H* (9-20) mg/dL Creatinine 3.40 H (0.66-1.25) mg/dL Glucose 211 H (74-99) mg/dL POC Glucose (mg/dL) 137 H (70-110) mg/dL Calcium 7.0 L (8.4-10.2) mg/dL 12/16/23 12/16/23 12/16/23 Range/Units 05:21 06:38 12:05 WBC (3.8-10.6) k/uL RBC (4.30-5.90) m/uL Hgb (13.0-17.5) gm/dL Hct (39.0-53.0) % RDW (11.5-15.5) % Neutrophils # (1.3-7.7) k/uL ABG pH 7.51 H (7.35-7.45) ABG pCO2 31 L (35-45) mmHg ABG pO2 74 L (83-108) mmHg ABG Total CO2 26 H (19-24) mmol/L Hemoglobin 7.3 L (13.0-17.5) gm/dL Chloride (98-107) mmol/L BUN (9-20) mg/dL Creatinine (0.66-1.25) mg/dL Glucose (74-99) mg/dL POC Glucose (mg/dL) 245 H 211 H (70-110) mg/dL Calcium (8.4-10.2) mg/dL Microbiology - Last 24 Hours (Table) 12/14/23 09:46 Blood Culture Gram Stain - Preliminary Blood Blood Culture - Preliminary Coagulase Negative Staph Molecular ID 12/14/23 09:55 Gram Stain - Final Abdomen Wound Culture - Final Alejandra albicans 12/14/23 11:35 Gram Stain - Preliminary Sputum Sputum Culture - Preliminary Pseudomonas aeruginosa Assessment and Plan Assessment: 1. Acute kidney injury secondary to ATN secondary to septic shock. Creatinine 0.86 on admission and up to 5.38 dated November 29, 2023. nonoliguric. UA fairly benign. No hydronephrosis noted on imaging. Started hemodialysis on 11/29/2023 for worsening volume status and acute kidney injury. 2. Perforated small bowel status post exploratory laparotomy with abdominal washout, small bowel resection and J-tube replacement November 25, 2023. 3. A-fib with RVR. s/p amiodarone drip. Also received digoxin this admission. 4. Recently diagnosed gastric B-cell lymphoma. 5. Septic shock. Likely abdominal source. On IV antibiotics. Off vasopressors now. 6. Hypocalcemia secondary to acute kidney injury. Replaced. Improved. 7. Metabolic acidosis secondary to acute kidney injury. Improved. 8. Volume overload Plan: dialysis today. Agree with daptomycin rather than vancomycin Continue with Aranesp
--- NOTE | 2023-12-16 13:50 | P.PN ---
Subjective Progress Note Date: 12/16/23 On today's evaluation of 12/16/2023, the patient is being seen for a follow-up. The patient has been off propofol since 12/11/2023. He is requiring on and off Ativan and Dilaudid for pain control. He is not following any commands. He opens his eyes occasionally and he moves his head and thrashes. I have recommended starting him on Precedex to control his restlessness and agitation. Meanwhile, the patient is on assist-control mode of mechanical ventilation at rate of 20, tidal volume of 500, FiO2 of 30% with a PEEP of 5. Blood gas showed a pH of 7.51 with a pCO2 of 31 and pO2 of 73. Chest x-ray showing a tracheostomy tube being in the upper trachea. It is projecting over the trachea. The patient has a port in his right IJ there is also an right apical cavity that is formed over the past 1 week. There is residual consolidation and small bilateral pleural effusions. Noted the patient was given CPAP trials over the past 24 to 48 hours and he has failed due to increased tachypnea. Sharon nwhile, he is sodium levels at 141 with a BUN of 131 and creatinine of 3.4. Serum bicarb is at 27. WBC count is at 18.9 with a hemoglobin 7.1 and a platelet count of 238. Urine output is in order of 70 cc an hour. He has adequate output from his ileostomy. The abdominal wound is dehisced and there is evidence of an old infection with some purulent secretion from the wound surface in its midportion. The patient is receiving J-tube feeding and is receiving Nepro at rate of 50 cc an hour in addition to 50 cc of fluid flush on an hourly basis to prevent any clogging. He was spiking temperature over the past 24 hours. Tmax was 1101.1 F and the patient was started on a combination of Zosyn and vancomycin pending further cultures. Wound cultures have been obtained. Blood cultures also been obtained. Hemodynamically stable on no pressors. Nephrology on the case regarding his renal failure. The patient will try to get hemodialysis today. Objective - Vital Signs Vital signs: Vital Signs Temp 101.1 F H 12/16/23 08:00 Pulse 96 12/16/23 09:00 Resp 17 12/16/23 09:00 BP 99/65 12/16/23 09:00 Pulse Ox 94 L 12/16/23 09:00 FiO2 30 12/16/23 08:19 Intake & Output 12/15/23 12/16/23 12/16/23 18:59 06:59 18:59 Intake Total 941 1106 191 Output Total 1220 1100 185 Balance -279 6 6 Weight 98.5 kg Intake: IV 156 326 61 0.9 KVO 120 190 30 Normal Saline Pressure 36 36 6 Saline Piperacillin-Tazobactam 3 100 .375 gm In Sodium Chloride 0.9% 100 ml @ 25 mls/hr IVPB Q8HR [facility] Rx# :[id number] Piperacillin-Tazobactam 3 25 .375 gm In Sodium Chloride 0.9% 100 ml @ 25 mls/hr IVPB Q8HR [facility] Rx# :[id number] Tube Feeding 600 600 100 Other 185 180 30 Output: Drainage 180 100 Right Abdomen 180 100 Urine 1040 1000 185 Other: Voiding Method Indwelling Catheter Indwelling Catheter # Bowel Movements 1 ABP, PAP, CO, CI - Last Documented Arterial Blood Pressure 114/45 - Exam No acute distress, sedated on propofol, comfortable, intubated on the mechanical ventilator. HEENT examination is grossly unremarkable. Mucous membranes are moist. No oral lesions. The patient has a triple-lumen catheter in the left subclavian. The patient also has a tracheostomy tube in place and the patient has a #8 Shiley tracheostomy tube. Cardiac exam revealed the PMI to be normally situated and sized. The rhythm was regular and no extrasystoles were noted during several minutes of auscultation. The first and second heart sounds were normal and physiologic splitting of the second heart sound was noted. There were no murmurs, rubs, clicks, or gallops. The patient is in sinus tachycardia. Lungs reveal mild scattered rhonchi. No wheezes or crackles. Breath sounds equal. Diminished breath sound lung base bilaterally. Abdomen distended without bowel sounds. J-tube is noted. Mid abdominal wound is dehisced and it is opened in its midportion for approximately 2 cm with purulent drainage at the wound surface. Patient also has a RAYA drain in place and output is serosanguineous. Extremities are intact. No cyanosis clubbing trace edema lower extremities bilaterally Skin is without rash or lesion. The wound at the Mediport site is dry and the area has been sutured and the site is clean for now. Neurologic examination is brief but nonfocal. - Labs CBC & Chem 7: 12/16/23 04:40 12/16/23 04:40 Labs: Abnormal Lab Results - Last 24 Hours (Table) 12/15/23 12/16/23 12/16/23 Range/Units 23:52 04:40 04:40 WBC 18.9 H (3.8-10.6) k/uL RBC 2.61 L (4.30-5.90) m/uL Hgb 7.1 L (13.0-17.5) gm/dL Hct 22.3 L (39.0-53.0) % RDW 19.7 H (11.5-15.5) % Neutrophils # 17.3 H (1.3-7.7) k/uL ABG pH (7.35-7.45) ABG pCO2 (35-45) mmHg ABG pO2 (83-108) mmHg ABG Total CO2 (19-24) mmol/L Hemoglobin (13.0-17.5) gm/dL Chloride 109 H (98-107) mmol/L BUN 131 H* (9-20) mg/dL Creatinine 3.40 H (0.66-1.25) mg/dL Glucose 211 H (74-99) mg/dL POC Glucose (mg/dL) 137 H (70-110) mg/dL Calcium 7.0 L (8.4-10.2) mg/dL 12/16/23 12/16/23 Range/Units 05:21 06:38 WBC (3.8-10.6) k/uL RBC (4.30-5.90) m/uL Hgb (13.0-17.5) gm/dL Hct (39.0-53.0) % RDW (11.5-15.5) % Neutrophils # (1.3-7.7) k/uL ABG pH 7.51 H (7.35-7.45) ABG pCO2 31 L (35-45) mmHg ABG pO2 74 L (83-108) mmHg ABG Total CO2 26 H (19-24) mmol/L Hemoglobin 7.3 L (13.0-17.5) gm/dL Chloride (98-107) mmol/L BUN (9-20) mg/dL Creatinine (0.66-1.25) mg/dL Glucose (74-99) mg/dL POC Glucose (mg/dL) 245 H (70-110) mg/dL Calcium (8.4-10.2) mg/dL Microbiology - Last 24 Hours (Table) 12/14/23 11:35 Gram Stain - Preliminary Sputum Sputum Culture - Preliminary Gram Neg Bacilli 12/14/23 09:46 Blood Culture Gram Stain - Preliminary Blood Blood Culture - Preliminary Molecular ID 12/14/23 09:55 Gram Stain - Preliminary Abdomen Wound Culture - Preliminary Assessment and Plan Plan: Acute hypoxemic respiratory failure with failure to wean from mechanical ventilation, S/P tracheostomy on December 10, 2023. The patient has bilateral pneumonia with a cavitary infiltrate in the right upper lobe, suspect underlying gram-negative infection. Awaiting further cultures. Patient is currently febrile. Started on Zosyn and vancomycin. 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 Small bowel perforation with abdominal contamination. The patient is status post expiratory laparotomy and small bowel resection and insertion of another jejunostomy tube. The patient jejunostomy is functional and the patient is stooling. However, the abdominal wound is dehisced and is infected. RAYA drain output is serosanguineous. Fever, rule out underlying hospital-acquired pneumonia with a gram-negative cavitating right upper lobe pulmonary infiltrate. Rule out line infection. Ru le out abdominal wound infection. Hemodynamically stable at this point in time. Peritonitis secondary to above Septic shock secondary to above, the patient is currently off pressors Atrial fibrillation with rapid medical response, currently back into normal sinus rhythm m. Acute kidney injury, currently hemodialysis dependent and the patient is a dialysis cath in his left femoral vein. History of acute aspiration during upper endoscopy most likely secondary to gastric outlet obstruction secondary to non-Hodgkin's lymphoma. weight loss most likely secondary non-Hodgkin's lymphoma involving the stomach. Anemia of chronic disease, multifactorial Encephalopathy, multifactorial, could be drug related/sepsis related, essentially a component of metabolic encephalopathy Plan Continue ventilator support. No need for any weaning at this point in time. Concern for a hospital-acquired gram-negative pneumonia. Start the patient on IV Zosyn pending further cultures Switch from vancomycin to daptomycin due to concerns of nephrotoxicity from Vanco Blood cultures and wound cultures Continue enteral feeding for nutritional support Hemodialysis today Continue ventilator support and will switch this patient to pressure control mode of mechanical ventilation if needed to maintain synchrony Dropped the Solu-Medrol to 20 mg every 12 hours Monitor fever pattern General Surgery is on the case regarding abdominal wound Enteral feeding for nutritional support with Nepro Condition remains extremely critical with poor prognosis based on the above Will continue to follow this patient along with the rest of the consultants. Condition is critical over the poor outcome based on the above. Evaluation was done more than 30 minutes. Time with Patient: Greater than 30
--- NOTE | 2023-12-16 13:55 | P.PN ---
Subjective Progress Note Date: 12/16/23 12/16/2023: Patient was seen for a follow-up. Patient is laying in the bed, severely encephalopathic. Patient now has tracheostomy. Patient currently on Precedex 0.2 mcg/kg/h. Also on vancomycin. Patient getting hemodialysis as of now. 12/08/2023: Patient was seen for a follow-up. Patient's was also present. Per nursing report, with sedation holiday, patient opens eyes, but does not follow commands, does not track. Does not even response to yes/no questions. Patient does move right arm sometimes. Patient starts desynchronized ventilation therefore has to be put back on Precedex. Patient currently on Precedex 0.6 g per program per hour. Objective - Vital Signs Vital signs: Vital Signs Temp 101.1 F H 12/16/23 08:00 Pulse 89 12/16/23 11:44 Resp 17 12/16/23 11:00 BP 106/68 12/16/23 11:00 Pulse Ox 94 L 12/16/23 11:00 FiO2 30 12/16/23 12:00 Intake & Output 12/15/23 12/16/23 12/16/23 18:59 06:59 18:59 Intake Total 941 1106 912 Output Total 1220 1100 530 Balance -279 6 382 Weight 98.5 kg 98.5 kg Intake: IV 156 326 522 0.9 KVO 120 190 70 Normal Saline Pressure 36 36 18 Saline Piperacillin-Tazobactam 3 100 .375 gm In Sodium Chloride 0.9% 100 ml @ 25 mls/hr IVPB Q8HR [facility] Rx# :[id number] Piperacillin-Tazobactam 3 100 .375 gm In Sodium Chloride 0.9% 100 ml @ 25 mls/hr IVPB Q8HR [facility] Rx# :[id number] Vancomycin 1,500 mg In 334 Sodium Chloride 0.9% 500 ml 500 ml @ 167 mls/hr IVPB ONCE ONE Rx#: [id number] Tube Feeding 600 600 300 Other 185 180 90 Output: Drainage 180 100 40 Right Abdomen 180 100 40 Urine 1040 1000 490 Other: Voiding Method Indwelling Catheter Indwelling Catheter Indwelling Catheter # Bowel Movements 1 ABP, PAP, CO, CI - Last Documented Arterial Blood Pressure 122/49 - Exam On examination patient is laying in the bed. Patient is intubated, with tracheostomy, sedated with Precedex 0.2 g per program per hour. Patient does not respond to painful stimuli. Pupils are equal, round and reacting. Oculocephalics is slightly present. Corneals are present. Patient is breathing over the ventilator. Rest of the examination is unchanged. Patient sometimes move his right arm, also moves his head [id number]. Patient very encephalopathic. - Labs CBC & Chem 7: 12/16/23 04:40 12/16/23 04:40 Labs: Abnormal Lab Results - Last 24 Hours (Table) 12/15/23 12/16/23 12/16/23 Range/Units 23:52 04:40 04:40 WBC 18.9 H (3.8-10.6) k/uL RBC 2.61 L (4.30-5.90) m/uL Hgb 7.1 L (13.0-17.5) gm/dL Hct 22.3 L (39.0-53.0) % RDW 19.7 H (11.5-15.5) % Neutrophils # 17.3 H (1.3-7.7) k/uL ABG pH (7.35-7.45) ABG pCO2 (35-45) mmHg ABG pO2 (83-108) mmHg ABG Total CO2 (19-24) mmol/L Hemoglobin (13.0-17.5) gm/dL Chloride 109 H (98-107) mmol/L BUN 131 H* (9-20) mg/dL Creatinine 3.40 H (0.66-1.25) mg/dL Glucose 211 H (74-99) mg/dL POC Glucose (mg/dL) 137 H (70-110) mg/dL Calcium 7.0 L (8.4-10.2) mg/dL 12/16/23 12/16/23 12/16/23 Range/Units 05:21 06:38 12:05 WBC (3.8-10.6) k/uL RBC (4.30-5.90) m/uL Hgb (13.0-17.5) gm/dL Hct (39.0-53.0) % RDW (11.5-15.5) % Neutrophils # (1.3-7.7) k/uL ABG pH 7.51 H (7.35-7.45) ABG pCO2 31 L (35-45) mmHg ABG pO2 74 L (83-108) mmHg ABG Total CO2 26 H (19-24) mmol/L Hemoglobin 7.3 L (13.0-17.5) gm/dL Chloride (98-107) mmol/L BUN (9-20) mg/dL Creatinine (0.66-1.25) mg/dL Glucose (74-99) mg/dL POC Glucose (mg/dL) 245 H 211 H (70-110) mg/dL Calcium (8.4-10.2) mg/dL Microbiology - Last 24 Hours (Table) 12/14/23 09:46 Blood Culture Gram Stain - Preliminary Blood Blood Culture - Preliminary Coagulase Negative Staph Molecular ID 12/14/23 09:55 Gram Stain - Final Abdomen Wound Culture - Final Alejandra albicans 12/14/23 11:35 Gram Stain - Preliminary Sputum Sputum Culture - Preliminary Pseudomonas aeruginosa Assessment and Plan Assessment: * Altered mental status, likely due to toxic metabolic encephalopathy, severe * Abnormal EEG, with severe encephalopathy. * Aspiration pneumonitis from retained gastric contents * Ventilator dependent respiratory failure, status post tracheostomy 12/10/2023 * Pulmonary edema * History of small bowel perforation at the site of jejunostomy tube tip with balloon * Acute kidney injury, with hemodialysis started 12/05/2023 * Acute recurrent atrial fibrillation * Septic shock, recovered * Hypertension * Anemia * Thrombocytopenia, resolved * History of gastric non-Hodgkin's lymphoma Plan: * Stat EEG was performed on 12/08/2023: It revealed generalized slowing of severe degree. This is suggestive of generalized cerebral dysfunction as can be seen with toxic metabolic encephalopathy or related to diffuse structural brain about a day. Clinical correlation is recommended. Sporadic, periodic generalized sharp-appearing waves were seen. This may suggest underlying cortical irritability. No electrographic seizure was recorded. * Therefore, empirically started on Keppra 500 mg daily. * Repeat EEG on 12/12/2023: Is abnormal. The study is limited because of diffuse myogenic artifact. The background slowing is suggestive of severe encephalopathy. Otherwise no focal slowing, epileptiform discharges or seizure on the EEG. * CT head performed 12/07/2023 revealed no acute intracranial process. Some atrophy. I personally reviewed CT head agree with the findings. * Patient is generalized weak. Patient has been ICU for extended period of time. At risk for critical illness myopathy. * Recommend I.D. consultation since has worsening of leukocytosis. * For medical management as per critical care and other specialties on board. * Per discussion of Dr. Jimenez with patient's , he is making slow improvement daily.
[2023-12-16] MEDS: NOREPINEPHRINE 4 MG in SODIUM CHLORIDE 0.9% 250 ML IV SCH (16:01)
[2023-12-16] MEDS: methylPREDNISolone SOD SUCCI 40 MG/ML 1 ML VIAL IV SCH (18:52)
[2023-12-16 19:04] LABS: Glucose,Whole Blood 153 mg/dL (70-110)
[2023-12-16] MEDS: PIPERACILLIN-TAZOBACTAM 3.375 GM in SODIUM CHLORIDE 0.9% 100 ML IVPB SCH (20:15)
--- NOTE | 2023-12-16 21:50 | P.CONS ---
History of Present Illness - Reason for Consult Consult date: 12/16/23 Positive blood culture Requesting physician: Ezio E Sheet - Chief Complaint Fever x 3 days - History of Present Illness Patient is a 73-year-old male with a past medical history significant for reflux in this patient has been in the hospital for 34 days now with initial presentation to the hospital on 11/12/2023 after the patient underwent elective upper endoscopy to evaluate his abdominal pain, EGD findings were suggestive of gastric outlet obstruction patient did have witnessed aspiration and got intubated and the procedure was terminated and the patient has been in the ICU since then, biopsy came positive with a non-Hodgkin lymphoma in this patient who is status post exploratory laparotomy for perforated small bowel with abdominal washout small bowel resection and feeding jejunostomy tube placement 11/25/2023 with no abdominal cultures done during that procedure and the patient is status post tracheostomy on 12/10/2023 patient started running a fever as of 12/12/2023 when he spiked a fever of 101 F and the patient will be spiking fever over the last 3 days patient did have blood culture drawn came back positive with staph epi prompted this consultation patient is currently intubated on the vent through the trach FiO2 currently at 30% no significant purulent secretion through the ET has been reported by the patient nurse patient also have abdominal wound dehiscence that has been done for open jejunostomy tube placement patient has also developed renal failure during this admission with initial placement of the right groin dialysis catheter subsequently has been switched over to the left groin area and the patient also have a left upper extremity PICC line, although information has been obtained from review the chart and talking nursing staff as the patient currently unable to provide any history family member was at the bedside and did provide some information as well patient did have a white count is up to 18.9 creatinine is 3.40 urine has been not significantly positive blood culture showing coagulase-negative staph sputum showing Pseudomonas aeruginosa and another gram-negative bacilli with the last chest x-ray right apical cavitary lesion Review of Systems Positive points has been mentioned in HPI complete review could not be obtained because of his underlying mental status Past Medical History Past Medical History: GERD/Reflux History of Any Multi-Drug Resistant Organisms: None Reported Past Surgical History: Heart Catheterization Additional Past Surgical History / Comment(s): colonsocopy,spinal injection, Past Anesthesia/Blood Transfusion Reactions: No Reported Reaction Past Psychological History: No Psychological Hx Reported Smoking Status: Never smoker Past Alcohol Use History: None Reported Past Drug Use History: None Reported - Past Family History Father Family Medical History: Cancer Medications and Allergies Home Medications Medication Instructions Recorded Confirmed Type Fluticasone Nasal [place] [Flonase 2 spray EA NOSTRIL DAILY 11/11/23 11/12/23 History Nasal [place]] Pantoprazole Sodium 40 mg PO BID 11/11/23 11/12/23 History Allergies Allergy/AdvReac Type Severity Reaction Status Date / Time No Known Allergies Allergy Verified 11/12/23 09:32 Physical Exam Vitals: Vital Signs Temp Pulse Resp BP Pulse Ox FiO2 12/16/23 09:17 30 12/16/23 09:00 96 17 99/65 94 L 12/16/23 08:36 100 12/16/23 08:22 98 12/16/23 08:19 30 12/16/23 08:00 101.1 F H 97 34 H 95 12/16/23 07:00 98 31 H 110/71 95 12/16/23 06:00 97 23 94 L 12/16/23 05:00 94 38 H 95 12/16/23 04:00 98.3 F 95 24 94 L 30 12/16/23 03:15 30 12/16/23 03:00 97 34 H 93/59 93 L 12/16/23 02:00 96 32 H 93/59 91 L 12/16/23 01:00 96 24 93/59 92 L 12/16/23 00:00 98.6 F 98 29 H 93 L 30 12/15/23 23:19 99 30 H 93 L 12/15/23 23:03 30 12/15/23 23:00 100 27 H 93 L 12/15/23 22:00 99 30 H 92 L 12/15/23 21:00 102 H 28 H 103/60 93 L 12/15/23 20:00 98.0 F 102 H 20 86/48 92 L 30 12/15/23 19:25 100 12/15/23 19:16 98 30 12/15/23 19:00 99 28 H 89/49 93 L 12/15/23 18:00 98 27 H 105/65 94 L 12/15/23 17:00 106 H 26 H 109/67 95 12/15/23 16:00 97.4 F L 109 H 28 H 112/61 98 30 12/15/23 15:30 106 H 12/15/23 15:20 103 H 30 12/15/23 15:00 102 H 23 104/57 94 L 12/15/23 14:00 99 27 H 103/60 98 12/15/23 13:00 97 27 H 108/61 96 12/15/23 12:00 98.4 F 101 H 23 124/72 96 30 12/15/23 11:36 98 12/15/23 11:23 97 30 12/15/23 11:00 96 43 H 120/73 99 Intake and Output 12/15/23 12/16/23 12/16/23 22:59 06:59 14:59 Intake Total 669 764 191 Output Total 775 675 185 Balance -106 89 6 Intake: IV 134 244 61 0.9 KVO 110 120 30 Normal Saline Pressure 24 24 6 Saline Piperacillin-Tazobactam 3 100 .375 gm In Sodium Chloride 0.9% 100 ml @ 25 mls/hr IVPB Q8HR [facility] Rx# :[id number] Piperacillin-Tazobactam 3 25 .375 gm In Sodium Chloride 0.9% 100 ml @ 25 mls/hr IVPB Q8HR [facility] Rx# :[id number] Tube Feeding 400 400 100 Other 135 120 30 Output: Drainage 130 50 Right Abdomen 130 50 Urine 645 625 185 Other: Voiding Method Indwelling Catheter Indwelling Catheter Weight 98.5 kg 98.5 kg ABP, PAP, CO, CI - Last 8 Hours Arterial Blood Pressure 114/45 Arterial Blood Pressure 128/52 Arterial Blood Pressure 118/49 Arterial Blood Pressure 119/48 Arterial Blood Pressure 126/50 Arterial Blood Pressure 114/50 Arterial Blood Pressure 120/110 GENERAL DESCRIPTION: Elderly male lying in bed no distress. No tachypnea or accessory muscle of respiration use. HEENT: Shows Pallor , no scleral icterus. Oral mucous membrane is dry. NECK: Trach site is clean LUNGS: Unlabored breathing. Coarse breath sounds bilaterally HEART: S1, S2, regular rate and rhythm. No loud murmur ABDOMEN: Soft, no tenderness , did have abdominal wound dehiscence but no significant purulent drainage EXTREMITIES: No edema of feet. SKIN: No rash, no masses palpable. NEUROLOGICAL: The patient is lethargic orientation could not determine Results CBC & Chem 7: 12/16/23 04:40 12/16/23 04:40 Labs: Abnormal Lab Results - Last 24 Hours (Table) 12/15/23 12/16/23 12/16/23 Range/Units 23:52 04:40 04:40 WBC 18.9 H (3.8-10.6) k/uL RBC 2.61 L (4.30-5.90) m/uL Hgb 7.1 L (13.0-17.5) gm/dL Hct 22.3 L (39.0-53.0) % RDW 19.7 H (11.5-15.5) % Neutrophils # 17.3 H (1.3-7.7) k/uL ABG pH (7.35-7.45) ABG pCO2 (35-45) mmHg ABG pO2 (83-108) mmHg ABG Total CO2 (19-24) mmol/L Hemoglobin (13.0-17.5) gm/dL Chloride 109 H (98-107) mmol/L BUN 131 H* (9-20) mg/dL Creatinine 3.40 H (0.66-1.25) mg/dL Glucose 211 H (74-99) mg/dL POC Glucose (mg/dL) 137 H (70-110) mg/dL Calcium 7.0 L (8.4-10.2) mg/dL 12/16/23 12/16/23 Range/Units 05:21 06:38 WBC (3.8-10.6) k/uL RBC (4.30-5.90) m/uL Hgb (13.0-17.5) gm/dL Hct (39.0-53.0) % RDW (11.5-15.5) % Neutrophils # (1.3-7.7) k/uL ABG pH 7.51 H (7.35-7.45) ABG pCO2 31 L (35-45) mmHg ABG pO2 74 L (83-108) mmHg ABG Total CO2 26 H (19-24) mmol/L Hemoglobin 7.3 L (13.0-17.5) gm/dL Chloride (98-107) mmol/L BUN (9-20) mg/dL Creatinine (0.66-1.25) mg/dL Glucose (74-99) mg/dL POC Glucose (mg/dL) 245 H (70-110) mg/dL Calcium (8.4-10.2) mg/dL Microbiology - Last 24 Hours (Table) 12/14/23 09:55 Gram Stain - Final Abdomen Wound Culture - Final Alejandra albicans 12/14/23 11:35 Gram Stain - Preliminary Sputum Sputum Culture - Preliminary Pseudomonas aeruginosa 12/14/23 09:46 Blood Culture Gram Stain - Preliminary Blood Blood Culture - Preliminary Molecular ID Assessment and Plan (1) Sepsis Current Visit: Yes Status: Acute Code(s): A41.9 - SEPSIS, UNSPECIFIED ORGANISM SNOMED Code(s): 53043849 (2) Pneumonia Current Visit: Yes Status: Acute Code(s): J18.9 - PNEUMONIA, UNSPECIFIED ORGANISM SNOMED Code(s): 670762958 (3) Bacteremia Current Visit: Yes Status: Acute Code(s): R78.81 - BACTEREMIA SNOMED Code(s): 7676358 Plan: 1patient with sepsis in this patient has been in the hospital for 34 days before this initial consultation with initial admission to the hospital after elective EGD with the patient was noted to have gastric outlet obstruction and did aspirated subsequently the patient did have laparotomy for perforated small bowel status post resection and jejunostomy tube placement noted to have evidence of a midline abdominal wound dehiscence did have a apical cavitary lesion on the right side with his sputum showing Pseudomonas and gram-negative and the patient also have positive blood culture with coagulase-negative staph patient did have a PICC line as well as dialysis catheter etiology of his sepsis is likely multifactorial in this patient who did have a complicated history over the last 1 month 2-patient also have a acute renal failure and high risk of nephrotoxicity from Zosyn and vancomycin combination 3-we will discontinue vancomycin start the patient on daptomycin to cover for the gram-positive and continue with Zosyn 4-blood cultures will be repeated to document clearance of his bacteremia Family the bedside multiple question concern answered We will follow on clinical condition and cultures to further adjust medication if needed Thank you for this consultation we will follow the patient along with you Dictation was produced using [employer] software. please excuse any grammatical, word or spelling errors. Time with Patient: Greater than 30
[2023-12-16 23:25] LABS: Glucose,Whole Blood 167 mg/dL (70-110)
[2023-12-17 05:02] LABS: ABG Base Excess 1.6 mmol/L; ABG HCO3 25 mmol/L (21-25); ABG Oxygen Saturation 97.7 % (94-97); ABG PCO2 34 mmHg (35-45); ABG PH 7.48 (7.35-7.45); ABG PO2 90 mmHg (83-108); ABG TCO2 26 mmol/L (19-24)
[2023-12-17 05:19] LABS: Allen Test Performed? no
[2023-12-17 05:20] LABS: Glucose,Whole Blood 203 mg/dL (70-110)
[2023-12-17 06:05] LABS: Anisocytosis Slight; Basophils % (A) 0 %; Eosinophils % (A) 0 %; HCT 22.5 % (39.0-53.0); HGB 7.1 gm/dL (13.0-17.5); Hypochromasia Moderate; Lymphocytes # (A) 1.2 k/uL (1.0-4.8); Lymphocytes % (A) 7 %; MCH 27.8 pg (25.0-35.0); MCHC 31.7 g/dL (31.0-37.0); MCV 87.7 fL (80.0-100.0); Mean Platelet Volume 8.6; Monocytes # (A) 0.4 k/uL (0-1.0); Monocytes % (A) 2 %; Neutrophils # (A) 14.5 k/uL (1.3-7.7); Neutrophils % (A) 89 %; Platelet Count 277 k/uL (150-450); RBC 2.57 m/uL (4.30-5.90); RDW 19.1 % (11.5-15.5); WBC 16.2 k/uL (3.8-10.6)
[2023-12-17 06:31] LABS: African American GFR (CKD) 26 (>60 ml/min/1.73 sqM); Anion Gap 8 mmol/L; Carbon Dioxide 26 mmol/L (22-30); Chloride 109 mmol/L (98-107); Glucose 186 mg/dL (74-99); Non-African American GFR(CKD) 23 (>60 ml/min/1.73 sqM); Potassium 3.7 mmol/L (3.5-5.1); Sodium 143 mmol/L (137-145)
[2023-12-17 06:50] LABS: Blood Urea Nitrogen 109 mg/dL (9-20)
--- NOTE | 2023-12-17 08:00 | XR ---
EXAMINATION TYPE: XR chest 1V portable DATE OF EXAM: 12/17/2023 5:45 AM CLINICAL INDICATION: Male, 73 years old with history of mechanical ventilation; COMPARISON: 12/16/2023 TECHNIQUE: XR chest 1V portable Frontal view of the chest. FINDINGS: Lungs/Pleura: Right apical cavitary lesion unchanged from prior. No evidence of focal consolidation o r pneumothorax. Blunting of the costophrenic angles is present. Pulmonary vascularity: Unremarkable. Heart/mediastinum: Cardiomediastinal silhouette is unremarkable. Musculoskeletal: No acute osseous pathology. Other findings: None Lines/Tubes: Tracheostomy cannula tip projecting over the trachea. [id number] projecting over the right hemithorax with distal tip at the cavoatrial junction. Left-sided PICC with distal tip at the superior vena cava/brachiocephalic confluence. IMPRESSION: Stable exam with mild right apical cavitary lesion. [facility], , 12/17/2023 7:58 AM
[2023-12-17] MEDS: HYDROmorphone 0.5 MG/0.5 ML SYRINGE IVP PRN (10:32)
--- NOTE | 2023-12-17 11:36 | P.PN ---
Subjective Patient is seen for follow-up for acute kidney injury. Maintained on Precedex. Urine output at 70-60 mL per hour. Edema has improved. Mentation has improved. Patient was able to answer questions earlier. status post hemodialysis yesterday. No significant UF because of low blood pressure. Patient was given fluid. Objective - Vital Signs Vital signs: Vital Signs Temp 98.3 F 12/17/23 08:00 Pulse 88 12/17/23 11:06 Resp 20 12/17/23 11:00 BP 106/62 12/17/23 11:00 Pulse Ox 95 12/17/23 11:00 FiO2 30 12/17/23 10:53 Intake & Output 12/16/23 12/17/23 12/17/23 18:59 06:59 18:59 Intake Total 2837 1172.604 537 Output Total 2155 1060 405 Balance 682 112.604 132 Weight 98.5 kg 101 kg Intake: IV 807 236 212 0.9 KVO 170 100 50 DAPTOmycin 600 mg In 50 Sodium Chloride 0.9% 50 ml @ 100 mls/hr IVPB Q48H [facility] Rx#:[id number] Normal Saline Pressure 36 36 12 Saline Piperacillin-Tazobactam 3 100 100 .375 gm In Sodium Chloride 0.9% 100 ml @ 25 mls/hr IVPB Q12HR [facility] Rx #:[id number] Piperacillin-Tazobactam 3 100 .375 gm In Sodium Chloride 0.9% 100 ml @ 25 mls/hr IVPB Q8HR [facility] Rx# :[id number] Vancomycin 1,500 mg In 501 Sodium Chloride 0.9% 500 ml 500 ml @ 167 mls/hr IVPB ONCE ONE Rx#: [id number] Intake, IV Titration 171.604 Amount Dexmedetomidine/0.9% NaCl 81.345 (Pmx) 400 mcg In Empty Bag 1 bag @ 0.2 MCG/KG/HR 4.925 mls/hr IV .[id number] [facility] Rx#:[id number] Norepinephrine 4 mg In 90.259 Sodium Chloride 0.9% 250 ml @ 0.03 MCG/KG/MIN 11. 259 mls/hr IV .[id number] [facility] Rx#:[id number] Tube Feeding 600 600 250 Hemodialysis 1250 Other 180 165 75 Output: Drainage 40 60 90 Right Abdomen 40 60 90 Urine 865 1000 315 Hemodialysis 205 Hemodialysis Net Amount 1045 Other: Voiding Method Indwelling Catheter Indwelling Catheter Indwelling Catheter # Bowel Movements 1 ABP, PAP, CO, CI - Last Documented Arterial Blood Pressure 139/59 - Exam patient is on the vent. Mentation has improved Examination of the heart S1 and S2 Examination of the lungs bilateral breath sounds are heard Abdomen is soft dressed, RAYA drain noted Examination of lower extremities shows no significant edema in the legs. 1+ edema noted in bilateral upper extremities. - Labs CBC & Chem 7: 12/17/23 05:30 12/17/23 05:30 Labs: Abnormal Lab Results - Last 24 Hours (Table) 12/16/23 12/16/23 12/16/23 Range/Units 12:05 19:02 23:24 WBC (3.8-10.6) k/uL RBC (4.30-5.90) m/uL Hgb (13.0-17.5) gm/dL Hct (39.0-53.0) % RDW (11.5-15.5) % Neutrophils # (1.3-7.7) k/uL ABG pH (7.35-7.45) ABG pCO2 (35-45) mmHg ABG Total CO2 (19-24) mmol/L ABG O2 Saturation (94-97) % Hemoglobin (13.0-17.5) gm/dL Chloride (98-107) mmol/L BUN (9-20) mg/dL Creatinine (0.66-1.25) mg/dL Glucose (74-99) mg/dL POC Glucose (mg/dL) 211 H 153 H 167 H (70-110) mg/dL Calcium (8.4-10.2) mg/dL 12/17/23 12/17/23 12/17/23 Range/Units 05:00 05:19 05:30 WBC 16.2 H (3.8-10.6) k/uL RBC 2.57 L (4.30-5.90) m/uL Hgb 7.1 L (13.0-17.5) gm/dL Hct 22.5 L (39.0-53.0) % RDW 19.1 H (11.5-15.5) % Neutrophils # 14.5 H (1.3-7.7) k/uL ABG pH 7.48 H (7.35-7.45) ABG pCO2 34 L (35-45) mmHg ABG Total CO2 26 H (19-24) mmol/L ABG O2 Saturation 97.7 H (94-97) % Hemoglobin 7.1 L (13.0-17.5) gm/dL Chloride (98-107) mmol/L BUN (9-20) mg/dL Creatinine (0.66-1.25) mg/dL Glucose (74-99) mg/dL POC Glucose (mg/dL) 203 H (70-110) mg/dL Calcium (8.4-10.2) mg/dL 12/17/23 Range/Units 05:30 WBC (3.8-10.6) k/uL RBC (4.30-5.90) m/uL Hgb (13.0-17.5) gm/dL Hct (39.0-53.0) % RDW (11.5-15.5) % Neutrophils # (1.3-7.7) k/uL ABG pH (7.35-7.45) ABG pCO2 (35-45) mmHg ABG Total CO2 (19-24) mmol/L ABG O2 Saturation (94-97) % Hemoglobin (13.0-17.5) gm/dL Chloride 109 H (98-107) mmol/L BUN 109 H* (9-20) mg/dL Creatinine 2.68 H (0.66-1.25) mg/dL Glucose 186 H (74-99) mg/dL POC Glucose (mg/dL) (70-110) mg/dL Calcium 7.0 L (8.4-10.2) mg/dL Microbiology - Last 24 Hours (Table) 12/14/23 11:35 Gram Stain - Final Sputum Sputum Culture - Final Klebsiella oxytoca Pseudomonas aeruginosa 12/14/23 09:46 Blood Culture Gram Stain - Preliminary Blood Blood Culture - Preliminary Coagulase Negative Staph Molecular ID 12/14/23 09:55 Gram Stain - Final Abdomen Wound Culture - Final Alejandra albicans Assessment and Plan Assessment: 1. Acute kidney injury secondary to ATN secondary to septic shock. Creatinine 0.86 on admission and up to 5.38 dated November 29, 2023. nonoliguric. UA fairly benign. No hydronephrosis noted on imaging. Started hemodialysis on 11/29/2023 for worsening volume status and acute kidney injury. 2. Perforated small bowel status post exploratory laparotomy with abdominal washout, small bowel resection and J-tube replacement November 25, 2023. 3. A-fib with RVR. s/p amiodarone drip. Also received digoxin this admission. 4. Recently diagnosed gastric B-cell lymphoma. 5. Septic shock. Likely abdominal source. On IV antibiotics. Off vas opressors now. 6. Hypocalcemia secondary to acute kidney injury. Replaced. Improved. 7. Metabolic acidosis secondary to acute kidney injury. Improved. 8. Volume overload, improved significantly. Plan: continue with antibiotics Continue Aranesp hemodialysis in a.m. with no significant ultrafiltration Continue with Aranesp
--- NOTE | 2023-12-17 12:40 | P.PN ---
Subjective Progress Note Date: 12/17/23 On today's evaluation of 12/16/2023, the patient is being seen for a follow-up. The patient has been off propofol since 12/11/2023. He is requiring on and off Ativan and Dilaudid for pain control. He is not following any commands. He opens his eyes occasionally and he moves his head and thrashes. I have recommended starting him on Precedex to control his restlessness and agitation. Meanwhile, the patient is on assist-control mode of mechanical ventilation at rate of 20, tidal volume of 500, FiO2 of 30% with a PEEP of 5. Blood gas showed a pH of 7.51 with a pCO2 of 31 and pO2 of 73. Chest x-ray showing a tracheostomy tube being in the upper trachea. It is projecting over the trachea. The patient has a port in his right IJ there is also an right apical cavity that is formed over the past 1 week. There is residual consolidation and small bilateral pleural effusions. Noted the patient was given CPAP trials over the past 24 to 48 hours and he has failed due to increased tachypnea. Sharon nwhile, he is sodium levels at 141 with a BUN of 131 and creatinine of 3.4. Serum bicarb is at 27. WBC count is at 18.9 with a hemoglobin 7.1 and a platelet count of 238. Urine output is in order of 70 cc an hour. He has adequate output from his ileostomy. The abdominal wound is dehisced and there is evidence of an old infection with some purulent secretion from the wound surface in its midportion. The patient is receiving J-tube feeding and is receiving Nepro at rate of 50 cc an hour in addition to 50 cc of fluid flush on an hourly basis to prevent any clogging. He was spiking temperature over the past 24 hours. Tmax was 1101.1 F and the patient was started on a combination of Zosyn and vancomycin pending further cultures. Wound cultures have been obtained. Blood cultures also been obtained. Hemodynamically stable on no pressors. Nephrology on the case regarding his renal failure. The patient will try to get hemodialysis today. 12/17/2023, the patient is being seen for a follow-up. This morning, the patient is awake and is following simple commands only. He is profoundly weak. He remains on Precedex which is currently running at 0.2 mcg/kg/h. The patient is on assist-control motorcycle mechanical ventilation with a tidal volume of 500, rate of 20, FiO2 of 30% and PEEP of 5. Blood gas showed a pH of 7.45 with a pCO2 of 24 and pO2 of 90. Chest x-ray shows extensive cavitation in the right upper lobe with a cavitating pneumonia/infiltrate. There is also lower lobe consolidation and effusions. The patient is having scant respiratory secretions. The culture was positive for Pseudomonas aeruginosa and the patient remains on IV Zosyn. Meanwhile, the patient is on normal saline at rate of 20 cc an hour. No pressors and the patient is hemodynamically stable. The patient is on Nepro 50 cc an hour. The patient is producing adequate amount of urine ou tput in the order of 60 cc an hour. Last hemodialysis session was done yesterday. This was successful without any hemodynamic alteration. The white cell count is 16.2 with a hemoglobin 7.1 and a platelet count of 277. The patient's electrolytes show a sodium level of 143, potassium of 3.7, chlorides 109 and a bicarb of 26 with a BUN of 109 and a creatinine of 2.6. Stool for C. difficile has been negative. This morning, the patient is afebrile. Family at the bedside. Abdominal wound is well-dressed and the RAYA drain is serosanguineous. Objective - Vital Signs Vital signs: Vital Signs Temp 98.3 F 12/17/23 08:00 Pulse 87 12/17/23 09:00 Resp 28 H 12/17/23 09:00 BP 107/69 12/17/23 09:00 Pulse Ox 95 12/17/23 09:00 FiO2 30 12/17/23 08:00 Intake & Output 12/16/23 12/17/23 12/17/23 18:59 06:59 18:59 Intake Total 2837 1172.604 78 Output Total 2155 1060 155 Balance 682 112.604 -77 Weight 98.5 kg 101 kg Intake: IV 807 236 13 0.9 KVO 170 100 10 Normal Saline Pressure 36 36 3 Saline Piperacillin-Tazobactam 3 100 .375 gm In Sodium Chloride 0.9% 100 ml @ 25 mls/hr IVPB Q12HR [facility] Rx #:[id number] Piperacillin-Tazobactam 3 100 .375 gm In Sodium Chloride 0.9% 100 ml @ 25 mls/hr IVPB Q8HR [facility] Rx# :[id number] Vancomycin 1,500 mg In 501 Sodium Chloride 0.9% 500 ml 500 ml @ 167 mls/hr IVPB ONCE ONE Rx#: [id number] Intake, IV Titration 171.604 Amount Dexmedetomidine/0.9% NaCl 81.345 (Pmx) 400 mcg In Empty Bag 1 bag @ 0.2 MCG/KG/HR 4.925 mls/hr IV .[id number] [facility] Rx#:[id number] Norepinephrine 4 mg In 90.259 Sodium Chloride 0.9% 250 ml @ 0.03 MCG/KG/MIN 11. 259 mls/hr IV .[id number] [facility] Rx#:[id number] Tube Feeding 600 600 50 Hemodialysis 1250 Other 180 165 15 Output: Drainage 40 60 90 Right Abdomen 40 60 90 Urine 865 1000 65 Hemodialysis 205 Hemodialysis Net Amount 1045 Other: Voiding Method Indwelling Catheter Indwelling Catheter Indwelling Catheter # Bowel Movements 1 ABP, PAP, CO, CI - Last Documented Arterial Blood Pressure 139/59 - Exam No acute distress, arousable on Precedex and following simple commands, comfortable, still on the mechanical ventilator. HEENT examination is grossly unremarkable. Mucous membranes are moist. No oral lesions.. The patient also has a tracheostomy tube in place and the patient has a #8 Shiley tracheostomy tube. Cardiac exam revealed the PMI to be normally situated and sized. The rhythm was regular and no extrasystoles were noted during several minutes of auscultation. The first and second heart sounds were normal and physiologic splitting of the second heart sound was noted. There were no murmurs, rubs, clicks, or gallops. The patient is in sinus tachycardia. Lungs reveal mild scattered rhonchi. No wheezes or crackles. Breath sounds equal. Diminished breath sound lung base bilaterally. Abdomen distended without bowel sounds. J-tube is noted. Mid abdominal wound is dehisced and it is opened in its midportion for approximately 2 cm with purulent drainage at the wound surface. Patient also has a RAYA drain in place and output is serosanguineous. Extremities are intact. No cyanosis clubbing trace edema lower extremities bilaterally Skin is without rash or lesion. The wound at the Mediport site is dry and the area has been sutured and the site is clean for now. Neurologic examination is brief but nonfocal. - Labs CBC & Chem 7: 12/17/23 05:30 12/17/23 05:30 Labs: Abnormal Lab Results - Last 24 Hours (Table) 12/16/23 12/16/23 12/16/23 Range/Units 12:05 19:02 23:24 WBC (3.8-10.6) k/uL RBC (4.30-5.90) m/uL Hgb (13.0-17.5) gm/dL Hct (39.0-53.0) % RDW (11.5-15.5) % Neutrophils # (1.3-7.7) k/uL ABG pH (7.35-7.45) ABG pCO2 (35-45) mmHg ABG Total CO2 (19-24) mmol/L ABG O2 Saturation (94-97) % Hemoglobin (13.0-17.5) gm/dL Chloride (98-107) mmol/L BUN (9-20) mg/dL Creatinine (0.66-1.25) mg/dL Glucose (74-99) mg/dL POC Glucose (mg/dL) 211 H 153 H 167 H (70-110) mg/dL Calcium (8.4-10.2) mg/dL 12/17/23 12/17/23 12/17/23 Range/Units 05:00 05:19 05:30 WBC 16.2 H (3.8-10.6) k/uL RBC 2.57 L (4.30-5.90) m/uL Hgb 7.1 L (13.0-17.5) gm/dL Hct 22.5 L (39.0-53.0) % RDW 19.1 H (11.5-15.5) % Neutrophils # 14.5 H (1.3-7.7) k/uL ABG pH 7.48 H (7.35-7.45) ABG pCO2 34 L (35-45) mmHg ABG Total CO2 26 H (19-24) mmol/L ABG O2 Saturation 97.7 H (94-97) % Hemoglobin 7.1 L (13.0-17.5) gm/dL Chloride (98-107) mmol/L BUN (9-20) mg/dL Creatinine (0.66-1.25) mg/dL Glucose (74-99) mg/dL POC Glucose (mg/dL) 203 H (70-110) mg/dL Calcium (8.4-10.2) mg/dL 12/17/23 Range/Units 05:30 WBC (3.8-10.6) k/uL RBC (4.30-5.90) m/uL Hgb (13.0-17.5) gm/dL Hct (39.0-53.0) % RDW (11.5-15.5) % Neutrophils # (1.3-7.7) k/uL ABG pH (7.35-7.45) ABG pCO2 (35-45) mmHg ABG Total CO2 (19-24) mmol/L ABG O2 Saturation (94-97) % Hemoglobin (13.0-17.5) gm/dL Chloride 109 H (98-107) mmol/L BUN 109 H* (9-20) mg/dL Creatinine 2.68 H (0.66-1.25) mg/dL Glucose 186 H (74-99) mg/dL POC Glucose (mg/dL) (70-110) mg/dL Calcium 7.0 L (8.4-10.2) mg/dL Microbiology - Last 24 Hours (Table) 12/14/23 09:46 Blood Culture Gram Stain - Preliminary Blood Blood Culture - Preliminary Coagulase Negative Staph Molecular ID 12/14/23 11:35 Gram Stain - Preliminary Sputum Sputum Culture - Preliminary Pseudomonas aeruginosa Gram Neg Bacilli 12/14/23 09:55 Gram Stain - Final Abdomen Wound Culture - Final Alejandra albicans Assessment and Plan Plan: Acute hypoxemic respiratory failure with failure to wean from mechanical ventilation, S/P tracheostomy on December 10, 2023. The patient has bilateral pneumonia with a cavitary infiltrate in the right upper lobe, secondary to Pseudomonas and the patient is currently on IV Zosyn. Patient is afebrile hemodynamically stable this morning. 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 Small bowel perforation with abdominal contamination. The patient is status post expiratory laparotomy and small bowel resection and insertion of another jejunostomy tube. The patient jejunostomy is functional and the patient is stooling. However, the abdominal wound is dehisced and is infected. RAYA drain output is serosanguineous. Fever, rule out underlying hospital-acquired pneumonia with Pseudomonas and the patient is current hemodynamically stable and afebrile. Peritonitis secondary to above Septic shock secondary to above, the patient is currently off pressors Atrial fibrillation with rapid medical response, currently back into normal sinu s rhythm . Acute kidney injury, currently hemodialysis dependent and the patient is a dialysis cath in his left femoral vein. History of acute aspiration during upper endoscopy most likely secondary to gastric outlet obstruction secondary to non-Hodgkin's lymphoma. weight loss most likely secondary non-Hodgkin's lymphoma involving the stomach. Anemia of chronic disease, multifactorial Encephalopathy, multifactorial, could be drug related/sepsis related, essentially a component of metabolic encephalopathy Plan Continue ventilator support. Switch this patient to pressure control mode of mechanical ventilation with a pressure control of 20, keep the PEEP at 5 with an FiO2 of 30% and a respirate of 20. Continue IV Zosyn Continue daptomycin Blood cultures and wound cultures Continue enteral feeding for nutritional support Hemodialysis was done yesterday Continue Solu-Medrol to 20 mg every 12 hours Monitor fever pattern General Surgery is on the case regarding abdominal wound Enteral feeding for nutritional support with Nepro Condition remains extremely critical with poor prognosis based on the above Will continue to follow this patient along with the rest of the consultants. C ondition is critical over the poor outcome based on the above. Evaluation was done more than 30 minutes. Time with Patient: Greater than 30
[2023-12-17 13:00] LABS: Glucose,Whole Blood 156 mg/dL (70-110)
--- NOTE | 2023-12-17 14:22 | P.PN ---
Progress Note - Text Progress Note Date: 12/17/23 Chief Complaint: Aspirated This is a 73-year-old patient, follows with Dr. Patricia Deal. Patient was seen this morning in the ICU. Patient's and daughter at the bedside. History obtained predominantly by the . Patient been having trouble with his stomach symptoms for close to 8 months. Patient underwent EGD by Dr. Sahara Cheng yesterday. Patient was found to have ulcerated around the antrum and obstruction to the pylorus. A lot of retained food was found. Patient aspirated. Had to be intubated and brought to the ICU. On a Levophed drip. FiO2 50 and a PEEP of 6. Patient had been losing weight lost about 25 pounds. Previously has a history of mitral valve prolapse. November 13: ICU. Patient remains on Precedex drip and propofol drip. Did not do well attempted extubation yesterday. Patient been off Levophed. NG tube to suction. Spoke to patient's and son at the bedside. Biopsy results awaited. Hemoglobin dropped to 6.9 this morning. Get a unit of blood. November 14: ICU. Up in a chair. Extubated yesterday. NG tube to suction. at the bedside. 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 Oncology was consulted. They have ordered a port. Results discussed with Dr. Sahara Cheng. General surgery was consulted for J-tube placement. Discussed with at the bedside. Patient getting IV fluids, IV Zosyn,. Patient has been on IV amiodarone for A-fib-back in sinus rhythm. Multiple PACs. Did receive unit of blood yesterday. Also IV ferric gluconate. November 15: ICU. Patient earlier today underwent jejunostomy tube placement and a port placement. Patient awake. Answering questions. NG tube to suction present. Updated patient's . Patient remains on IV amiodarone and IV Zosyn. November 16: ICU. Up in the chair. NG tube present but not to suction. Trickle feeding through the jejunostomy tube should be started today. Dietitian has been on board. IV Zosyn to continue. Patient's and his sister at the bedside. Discussed. Also spoke with Dr. Serna. Given patient has no other predisposing cardiac factors for the A-fib except acute illness. His LV function is normal. Left atrium is normal. He has already been loaded with IV amiodarone. Will switch him to oral Lopressor 12.5 twice daily. Hence will DC amiodarone. Patient yesterday had wheezing was put on bronchodilators steroids per pulmonary. November 17: Propped up in bed. NG tube was discontinued. Sinus rhythm. Remains NPO. Getting G-tube feeding at 40 cc an hour. Dietitian following. Get arrangements done for DC home tomorrow including tube feeding. Increase activity discussed with patient and elder daughter at the bedside. Still requiring oxygen. Incentive spirometry. November 18: Patient up in recliner. Earlier today spoke to mental health social worker David. Informed patient is rather weak and will be going to the [facility]. Looking at authorization. Denae came to the room and spoke to patient his and his daughter. They are very keen to take the patient home as 3 daughters all nurses and they will take care of him at home. Patient earlier today to abdominal cramping and some loose stools.'s tube feeding was held. Told the nurse to start back at the rate of 40 cc an hour. He was before the getting it at 55 cc an hour. Incentive spirometry was again emphasized. Patient remains on 4 L of oxygen. November 19: I saw the patient this morning. Hence I am in the evening. Morning was sitting with his sons. Has some edema. Lungs had crackles I gave him 40 mg of Lasix. He did make good urine. Tube feeding was held from the previous evening of because of abdominal cramping. Acute abdominal series showed nonspecific bowel gas pattern and SBO to be ruled out. Family and patient was updated. Told him discharge will depend on day by day. Later this afternoon CT scanAnd abdomen pelvis done. Showed small bowel to be 3 point centimeter dilated. Some anasarca. Gastric findings. Gallstones. Later spoke to Dr. Irby from general surgery. They will further review and decide about further plan of action. Will give further dose of IV Lasix because of fluid overload from likely hypoalbuminemia and IV fluids previously received. Patient may take his pills by mouth. Total time spent today about 1 hour with over 40 minutes of discussion. Patient did state his breathing is better after Lasix this morning. November 20: Saw the patient this morning. was present. Patient received 2 more doses of Lasix. Diuresed well. Breathing much better. Lungs are sounding better. Discussed with Dr. Zepeda other surgeon. He is taking 3 cc out of the balloon and the gastrostomy tube. Started trickle feeding at 5 cc an hour. Will see how this does. Later in the day ran into the and the daughter again. Did update them on the same. Dilaudid was discontinued yesterday but morphine was ordered by surgery for patient having pain. Concerns about GI issues with that we will DC the morphine. As family does not want the same. November 21: Patient reclining bed. Tired. Several family members at the bedside. Including his and eldest daughter. Patient started on trickle feed yesterday at 5 cc an hour. This morning he has been on 10 cc an hour. Still having some loose stools. C. difficile was ordered. Patient on 2 L of nasal cannula. Has diuresed well. Will give an additional dose of Lasix today. If C. difficile is negative and the diarrhea is from the tube feedings we may have to use a fecal management system to keep him comfortable. Otherwise patient remains NPO. Dietitian is following the patient. Care was discussed length with patient the and daughter at the bedside. Questions answered. Liquid Tylenol has been added for abdominal pain. Avoid narcotics. Elevated white count likely from Solu-Medrol 11/23/2023--patient was feeling better today. Multiple family member at bedside. No issues overnight. Normal saline at 10 cc an hour, tube feeding at 20 cc an hour, remains on Zosyn, on 3 L oxygen. Afebrile. Heart rate 62, respiratory rate 16, blood pressure 114/67, saturating 91% on 3 L. WBCs 14.5, 9.7 hemoglobin. Platelet 242. BMP is unremarkable. Pulmonary and general surgery following. General surgery recommended to continue tube feeds at 20 cc/h. 11/24/2023--patient reported significant abdominal discomfort, also noted to have leak around G-tube. General surgery is following, evaluated the patient at bedside, adjusted tube feeds. Also reported having diarrhea, on 2 L oxygen, went up to 5 L. Blood pressure was low, 500 mL fluid bolus with close monitoring of respiratory status ordered. Currently on DuoNebs, Solu-Medrol, will continue Zosyn. Chest x-ray showed a left lower lobe infiltrate. Abdominal x-ray showed multiple air-fluid levels. CT abdomen showed multiple dilated small bowel loops, consistent with obstruction, pneumoperitoneum, cholelithiasis and ascites. WBCs 14.1, platelet 255, hemoglobin 8.9. NG tube in place. Family at bedside. patient transferred to SICU for close monitoring. 11/25/23--patient is currently in the ICU, required Levophed overnight due to low blood pressure, low urine output with creatinine trending up. Nephrology following. Client Relations Associate also following. Patient remains n.p.o., NG tube in place, following NG tube insertion patient had total of 2 L output, J-tube was draining approximately 200 cc over last 8 hours, continues to have abdominal pain and abdominal tenderness. Patient on IV fluids. Currently on 4 L oxygen. WBCs 8.2, hemoglobin 12.3, platelet 188. Chest x-ray earlier today showed right sided port and a stable left lung airspace disease, NG tube in place. Patient currently on Zosyn, on IV Dilaudid for pain control, on IV Solu-Medrol. General surgery planning for OR today, started on TPN. 11/26/23--patient was seen and examined today. Patient is currently sedated, intubated on mechanical ventilation. Family at bedside. Patient underwent ex lap, abdominal washout, small bowel resection with new feeding jejunostomy tube placement yesterday, small bowel was noted to be perforated with significant contamination of abdominal cavity. Patient is currently on vancomycin and Zosyn. Creatinine went up to 2.85, nephrology following, recommended to continue IV fluids, avoid nephrotoxin Preserved EF on echocardiogram.. Patient currently on Levophed, vasopressin in the ICU for close monitoring. Patient is afebrile, heart rate 122, blood pressure 129/76, currently on mechanical ventilation, sedated. November 26: ICU. Intubated. FiO2 60 and a PEEP of 5. Drips include IV amiodarone. Heart rate was up early did get fired microgram of IV digoxin and 2.5 mg of IV Lopressor. Did drop her blood pressure bit. Urine output was low. Received 80 mg of IV Lasix. Ahmet to 150 cc. Other drips include IV propofol, vasopressin, Levophed. TPN was started yesterday. Antibiotics include IV Zosyn and vancomycin. Patient has a J-tube to drainage to gravity. Spoke to patient's younger daughter and at the bedside. Prognosis guarded. Continue current treatment plan. Chest x-ray shows right lower lobe consolidation. Small pleural effusion. November 27: ICU. Intubated. FiO2 55 and a PEEP of 5. Antibiotics include IV vancomycin. Drips include Levophed at a small dose, IV vasopressin, propofol, amiodarone. Patient converted to sinus rhythm this morning. Getting TPN and normal saline at 75 cc an hour. Urine output about 25 cc an hour. RAYA drain put out about 260 cc last 12 hours that is last overnight babysitter. NG tube with bilious output. And also GI J-tube output to gravity. Spoke to patient's and daughter at the bedside. They understand patient still not out of the kee. Platelets have dropped-therefore probably Zosyn stopped. November 28: ICU. Intubated. FiO2 55 and a PEEP of 5. Patient is in sinus rhythm. Seen this morning. Due for dialysis catheter this afternoon. Urine output about 15 to 20 cc an hour. Patient is on IV Lasix 80 mg every 12. Saline is KVO. Drips include IV propofol vasopressin. Patient having significant output through the RAYA drain and the jejunostomy tube to drainage. Creatinine had been getting worse. Patient's at the bedside. Understands patient's remains critically ill. Hemoglobin is down to 7. Given that patient's pain hypotensive, and on vasopressin we will give a unit of blood with dialysis. Getting TPN antibiotic changed to IV meropenem November 29: ICU. Intubated. FiO2 55 and a PEEP of 5. Remains in sinus rhythm. Getting TPN. Dialyzed yesterday and this morning. About 1000 cc removed. Urine output about 50 cc an hour. Patient is on IV propofol. Off vasopressin. Still having significant output through the RAYA drain and jejunostomy tube. Patient received a second unit of blood yesterday. Patient's and daughter at the bedside. I did discuss guarded prognosis. Did asked them to revisit CODE STATUS.. Getting IV meropenem. November 30: ICU. Intubated. Did get a sedation holiday t today. Back on propofol. Getting TPN. Still getting IV Lasix. Fair urine output. Jejunostomy tube in last 8 hours was about 30 cc output. RAYA drain in the 8 hours had about 180 cc output. Telemetry shows sinus rhythm. NG tube has low intermittent suction with negative output. On the vent with FiO2 40 and a PEEP of 5. No hemodialysis today. Discussed with the and eldest daughter at the bedside. IV meropenem-patient's sputum had grown Citrobacter freundii and Pseudomonas aeruginosa. December 01: ICU. Intubated. Jejunostomy tube to gravity. Only 10 cc output in last 24 hours. RAYA drain. About 190 cc last 6 hours. Nasogastric tube to low intermittent suction. Minimal output. Patient is on a small dose of propofol 5 mics. Telemetry shows sinus rhythm. Patient started on small dose of Cleviprex this morning. Blood pressure. Getting TPN. FiO2 35 and PEEP of 5. Discussed with the at the bedside. Hemodialysis today December 02: ICU. Patient remains intubated. FiO2 35 PEEP of 5. Patient is on IV propofol. IV Cleviprex was discontinued yesterday. Also remains on TPN. Telemetry shows sinus rhythm. NG tube is good no output. Still significant output through the RAYA drain. Jejunostomy tube has minimal output. Patient had hemodialysis today 2 L of fluid was removed. Oral half liters yesterday. Patient getting a sedation holiday. General Surgery started the patient on trickle feeding at 10 cc an hour. I did speak to patient's at the bedside. Prognosis remains guarded but there is some improvement. December 03: ICU. Intubated. FiO2 35 PEEP of 5. Drips include IV propofol and Precedex. Getting TPN. Telemetry shows sinus rhythm. Remains on IV Lasix 80 mg twice a day. IV meropenem. Because patient gets easily agitated when transitioning off propofol he has been switched over to Precedex. For hemodialysis today. December 04: ICU. Intubated. FiO2 35 and a PEEP of 5. Patient been taken off propofol is on Precedex. Telemetry sinus rhythm. J-tube with minimal output. RAYA drain with decreased output. NG tube to suction minimal output. Family wanted to hold off trickle feeding until cleared by oncology. Which he did today. Trickle feeding will be started today. Spoke to patient's and one of the daughters at the bedside. Dr. Russ is spoken to the earlier this point they want to do further tracheostomy tube. December 05: ICU. Intubated. FiO2 35 PEEP of 5. Patient remains on Precedex and PPN. Patient's dialysis catheter was not functioning is getting another [address] Bobby this afternoon. Remains on IV meropenem. Has a RAYA drain in the jejunostomy tube to gravity. NG tube to low intermittent suction. No family at the bedside. December 06: ICU. Intubated. FiO2 35 PEEP of 5. RAYA drain putting out about approximately 120 cc per shift. Patient on IV Precedex. FiO2 35 PEEP of 5. Telemetry-sinus rhythm. Patient occasionally been put on small dose of Levophed specially for hemodialysis getting it today. Also started on midodrine for low blood pressure. Tolerating tube feeding at 10 cc an hour. Also had a bowel movement. Mentation has not improved. Even with sedation holiday. Neurology consulted. CT brain shows no acute process. December 07: ICU. Intubated. FiO2 35 PEEP of 5. Telemetry-sinus rhythm. NG tube to suction low intermittent minimal output. Getting TPN. Tube feeding at 20 cc an hour. RAYA drain averaging over 100 cc per shift. Remains on Precedex. EEG was done today. Discussed with at the bedside. Family is currently not inclined for tracheostomy tube today. Day 13 of being intubated December 08: ICU. Intubated. FiO2 35 PEEP of 5. Patient is put on back on propofol per link wire fabric machine operator Dr. BINGHAM. EEG did show some potential for spikes was put on Keppra by neurology. Telemetry shows sinus rhythm. NG tube to suction with no output. Tube feeding was put on hold because of questionable discharge on the site. Being restarted today. RAYA drain is 150 cc last 12-hour shift. Patient does open eyes. Family has decided to proceed with tracheostomy and surgery has been consulted for the same. Spoke to the at the bedside. For hemodialysis today. December 09: ICU. Intubated FiO2 35 PEEP of 5. Patient seen this morning. Pending tracheostomy placement this afternoon. Remains NPO. G-tube feeding was held overnight. RAYA drain putting out about 100 cc per shift. Received a unit of blood for hemoglobin of 6.6. On 25 mics of propofol. Getting TPN and meropenem. Spoke to the at the bedside. Patient became hypotensive with dialysis yesterday. Levophed had to be given. Only 800 cc were removed yesterday. No hemodialysis today. December 10: ICU . FiO2 35, PEEP 5. Tracheostomy was done yesterday by Dr. Ewing. G-tube feeding was started today at 10 cc an hour. Dietitian following. RAYA drain 12-hour shift overnight put out about 30 cc. Patient hemodialysis to day about 1 L removed. Patient has a sacral stage II decub with a dressing. On propofol 20 mics. Spoke to at the bedside. TPN. Meropenem was discontinued yesterday. December 11: ICU. FiO2 35 PEEP of 5. Tracheostomy. NG tube was discontinued. No hemodialysis today. Telemetry shows sinus rhythm. J-tube feeding at 40 cc an hour. TPN was discontinued. Patient has been off propofol also. PICC line in place. Patient had a EEG done today. Spoke to patient's elder daughter at the bedside. May open eyes occasionally. Not really following commands December 12: 73-year-old white male with history of chronic abdominal pain for the last 8 months has been treated with Protonix 40 mg daily for the last 3 months with no improvement. Patient had a 22 pound weight loss in the last [address] of the abdomen and pelvis 3 weeks ago showed thickening of the antral wall with pathological adenopathy posterior to the stomach suspicious of neoplasm. Today the patient underwent elective upper endoscopy to evaluate further, patient received IV sedation by anesthesia endoscope was inserted into the mouth, esophagus was intubated without any difficulty there was evidence of large amount of liquid and solid food noted in the stomach suggestive of gastric outlet obstruction. Scope could not be advanced through the pylorus, however in the prepyloric area there was a large superficial ulceration identified with multiple biopsies were done from this area. The body cardia and fundus could not adequately visualize because of large amount of retained food in the stomach. Scope was withdrawn back to the stomach and upon careful examination the mucosa of the antrum body and cardia as well as the fundus appeared normal. Procedure was being performed and biopsies were done patient threw up and subsequently became hypoxic there was clearly evidence of witnessed aspiration anesthesia intubated the patient, procedure was terminated, and the patient was transferred to the ICU, this consult was initiated. Patient is now on assist- control rate of 20 tidal volume 500 FiO2 70% PEEP of 10 ABG is pending, earlier ABG showed profound hypoxia patient is on propofol at 50 mcg/kg/min, next ABG is pending. Chest x-ray showed chronic changes without evidence of acute pulmonary disease. 12/14/2023 Patient remains in the ICU, generally weak Patient s/p tracheostomy G-tube in place Patient still has fever and mild tachycardia but tachycardia is improving, leukocytosis improving as well. Hemoglobin 8.1. Creatinine 3.0 and nephrology team on the case. He has mild transaminitis. He was getting Zosyn which is held now, nowCalcitonin is pending 12/14 Patient shon in the ICU, he is still encephalopathic and does not follow command. Neurology service following closely. He is status post tracheostomy. Also J-tube His abdomen looks soft and on exam he has mild coarse secretions. Has a Abarca catheter with clear urine His pro- Calcitonin is still high but trending down 3.0 down to 1.9 No fever this morning WBC slightly less at 16.3 Patient currently off antibiotic He is getting steroids IV Solu-Medrol which might contribute to his leukocytosis. Also he is on IV Keppra by neurologist 12/14 Patient remains confused in the ICU calm, he had a good night per family member and staff. Tracheostomy in place Patient has occasional coughing spells, patient also developed some partial wound dehiscence in his abdomen, surgery team are aware and are going to evaluate the patient Patient also has positive blood culture from 12/13: Gram-positive cocci in clusters. Patient received one-time dose of IV vancomycin. Patient also had fever 2 days ago, leukocytosis and total elevated pro- Calcitonin. Therefore we are going to consult infectious disease team. As his antibiotic Zosyn was stopped few days ago. Currently patient KVO He has good urine output December 15: ICU. Trach. Congested. Requiring suctioning. No hemodialysis today. Getting G-tube feeding at 50 cc an hour. FiO2 30 and a PEEP of 5. On IV Precedex. Eyes open. Does follow commands. Weakness in the limbs. Spoke to at the bedside. Sputum positive for Klebsiella oxytoca and Pseudomonas aeruginosa. Active Medications Acetaminophen (Acetaminophen Tab 325 Mg Tab) 650 mg PO Q4HR PRN PRN Reason: Fever and/ or Pain Last Admin: 12/09/23 20:09 Dose: 650 mg Acetaminophen (Acetaminophen Oral Susp (Peds) 3,840 Mg/120 Ml Bottle) 480 mg PO Q4HR PRN PRN Reason: Fever Albuterol/Ipratropium (Ipratropium-Albuterol 3 Ml Neb) 3 ml INHALATION RT-QID NIRMAL Last Admin: 12/17/23 10:51 Dose: 3 ml Albuterol/Ipratropium (Ipratropium-Albuterol 3 Ml Neb) 3 ml INHALATION RT-Q2H PRN PRN Reason: Shortness Of Breath Or Wheezing Last Admin: 12/03/23 03:45 Dose: 3 ml Chlorhexidine Gluconate (Chlorhexidine Gluconate 15 Ml Cup) 15 ml MUCOUS MEM BID NIRMAL Last Admin: 12/17/23 07:51 Dose: 15 ml Darbepoetin Scooby (Darbepoetin Scooby 40 Mcg/0.4 Ml Syringe) 40 mcg SQ Q7D NIRMAL Last Admin: 12/17/23 07:51 Dose: 40 mcg Dextrose/Water (Dextrose 50% Syringe 50 Ml) 25 ml IVP PER PROTOCOL PRN; Protocol PRN Reason: Hypoglycemia Dextrose/Water (Dextrose 50% Syringe 50 Ml) 50 ml IVP PER PROTOCOL PRN; Protocol PRN Reason: Hypoglycemia Hydromorphone HCl (Hydromorphone 0.5 Mg/0.5 Ml Syringe) 0.25 mg IVP Q4HR PRN PRN Reason: Pain Last Admin: 12/17/23 10:32 Dose: 0.25 mg Sodium Chloride (Saline 0.9%) 1,000 mls @ 20 mls/hr IV .Q24H [facility] Last Admin: 12/16/23 16:00 Dose: 20 mls/hr Dexmedetomidine HCl 400 mcg/ (IV Solution) 100 mls @ 4.925 mls/hr IV .[id number] NIRMAL; Protocol Last Admin: 12/17/23 02:30 Dose: 0.2 mcg/kg/hr, 4.925 mls/hr Piperacillin Sod/Tazobactam (Sod 3.375 gm/ Sodium Chloride) 100 mls @ 25 mls/hr IVPB Q12HR [facility]; Protocol Last Admin: 12/17/23 07:55 Dose: 25 mls/hr Daptomycin 600 mg/ Sodium (Chloride) 50 mls @ 100 mls/hr IVPB Q48H [facility]; Protocol Last Admin: 12/17/23 07:51 Dose: 100 mls/hr Norepinephrine Bitartrate 4 mg (/ Sodium Chloride) 254 mls @ 11.259 mls/hr IV .[id number] [facility]; Protocol Last Titration: 12/17/23 06:10 Dose: 0 mcg/kg/min, 0 mls/hr Insulin Aspart (Insulin Aspart (Novolog) 100 Unit/Ml Vial) 0 unit SQ 0000,0600,1200,1800 [facility]; Protocol Last Admin: 12/17/23 06:23 Dose: 4 unit Insulin Detemir (Insulin Detemir (Levemir) 100 Unit/Ml Syr) 24 unit SQ DAILY@0700 [facility] Last Admin: 12/17/23 06:23 Dose: 24 unit Levetiracetam (Levetiracetam Iv 500 Mg/5 Ml Vial) 500 mg IVP Q24HR [facility] Last Admin: 12/17/23 07:51 Dose: 500 mg Lorazepam (Lorazepam 2 Mg/Ml Inj) 1 mg IV Q4HR PRN PRN Reason: Anxiety Methylprednisolone Sodium Succinate (Methylprednisolone Sod Succi 40 Mg/Ml 1 Ml Vial) 20 mg IV DAILY@1800 [facility] Last Admin: 12/16/23 18:52 Dose: 20 mg Metoprolol Tartrate (Metoprolol Tartrate 5 Mg/5 Ml Vial) 2.5 mg IVP Q6HR PRN PRN Reason: Heart Rate - HIGH Last Admin: 11/27/23 08:25 Dose: 2.5 mg Midodrine (Midodrine 5 Mg Tab) 5 mg PO AC-TID [facility] Last Admin: 12/17/23 13:09 Dose: Not Given Miscellaneous Information (Magnesium Replacement Protocol 1 Each Misc) 1 each MISCELLANE DAILY PRN; Protocol PRN Reason: Per Protocol Naloxone HCl (Naloxone 0.4 Mg/Ml 1 Ml Vial) 0.2 mg IV Q2M PRN PRN Reason: Opioid Reversal Pantoprazole Sodium (Pantoprazole 40 Mg/10 Ml Vial) 40 mg IVP BID [facility] Last Admin: 12/17/23 07:51 Dose: 40 mg Petrolatum (Zinc Oxide Paste (Z-Guard) 1 Applic) 1 applic TOPICAL BID [facility]; Protocol Last Admin: 12/16/23 20:15 Dose: 1 applic Past medical history to include: GERD Social history: . No smoking. Physical examination: VITAL SIGNS: 99.9, 91, 18, 92 x 63, 96% on the ventilator GENERAL: Eyes open. Right chest wall port. Congested sounding EYES: Pupils equal. Conjunctiva edouard l. HEENT: External appearance of nose and ears normal, tracheostomy NECK: JVD unable to assess; masses not palpable. HEART: First and second heart sounds are normal; edema, present LUNGS: Respiratory rate increased, decreased breath sounds ABDOMEN: Soft, nontender, liver spleen not palpable, no masses palpable..jejunostomy tube-attached to tube feeding . RAYA drain. Incision with stitches PSYCH: Unable to assess NEURO: Not really able to move limbs. INVESTIGATIONS, reviewed in the clinical context: December 16: White count 6.2 hemoglobin 7.1 platelets 237 sodium 143 potassium 3.7 BUN 109 creatinine 2.68 December 11: White count 7.9 hemoglobin 7.4 platelets 151 sodium 133 potassium 4 BUN 88 creatinine 2.96 December 10: White count 21.3 hemoglobin 7.4 platelets 129 potassium 4.2 BUN 111 creatinine 3.77 December 09: White count 26.1 hemoglobin 8.6 platelets 154 potassium 4.1 BUN 86 creatinine 3.31. Hemoglobin this morning was 6.6 prior to transfusion EEG-evidence of generalized cerebral dysfunction and sporadic intermittent higher amplitude sharply contoured waves mainly bifrontal. Showing cortical irritability. 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 Serosal fibrous adhesions. Viable margins. December 04: White count 10.2 hemoglobin 8 platelets 90 sodium 130 potassium 4 BUN 70 creatinine 2.89 Sputum culture: [November 25]: Citrobacter freundii. Pseudomonas aeruginosa November 20: White count 14.4 hemoglobin 8.8 platelets 229 potassium 4.1 BUN [address] scan abdomen [November 19] possible small bowel obstruction Stool: C. difficile negative November 15: WBC 13 hemoglobin 7.7 platelets 248 potassium 4.3 creatinine 0.87 2D echo: EF 55 to 60%. Kidneys bladder: Unremarkable November 13: White count 12 hemoglobin 6.9 platelets 276 potassium 4.4 creatinine 1.21 magnesium 1.8 iron 6 TIBC 365% saturation 1.64 transferrin 261 ferritin 34.6 B12 569 folate 4.4 November 11: Creatinine 0.86 EGD: Large amount of retained solid liquid food noted in the stomach. Large superficial gastric antral ulceration involving most of the antrum extending into the pylorus causing pyloric stenosis. Biopsies were obtained. Chest x-ray film personally reviewed by me-scattered infiltrates Assessment plan: -Aspiration pneumonitis bilateral from retained gastric contents mostly food and liquids, causing acute hypoxic respiratory failure: On presentation: Subsequent sputum culture November 25: Citrobacter freundii, Pseudomonas aeruginosa. December 13: Klebsiella oxytoca, Pseudomonas aeruginosa IV meropenem-was received originally. Now receiving IV daptomycin and IV Zosyn. Pulmonary following -Acute pulmonary edema and fluid overload from hypoalbuminemic state and fluids from IV.:: Has been getting Lasix and dialysis -Altered mentation. Possibly encephalopathy. Could be delirium. CT brain [December 06] nothing acute Neurology following EEG-evidence of generalized cerebral dysfunction and sporadic intermittent higher amplitude sharply contoured waves mainly bifrontal. Showing cortical irritability. Keppra was started on December 07 -Critical care mild neuropathy -Small l bowel perforation at site of jejunostomy tube tip with balloon..: Portion of small bowel resected. On November 24. New J-tube was placed.- drainage to gravity:-Now discontinued Trickle feeding-restarted 10 cc an hour today -Acute kidney injury. Possible ATN from hypotensive shock: Slow to respond Renal ultrasound unremarkable. Started on renal replacement therapy on November 28. Followed by nephrology -Nutrition Jejunostomy tube placed November [address] Ewing Getting TPN. Tube feeding at 50 cc an hour today -Acute recurrent atrial fibrillation-converted to sinus rhythm Received IV amiodarone. Cardiology following Lopressor -Acute hypoxic respiratory failure from aspiration pneumonia, status post ventilator assisted: Reintubated November 25. FiO2 35 PEEP of 5 Tracheostomy tube-by Dr. Zepeda on December 09 -Septic shock, recovered -Hypertension Patient started on Cleviprex-discontinued -Intermittent hypotension Intermittent use of Levophed. 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 Also anemia of blood draw. Iron deficiency anemia Received 3rd unit of blood . IV iron. -Severe thrombocytopenia. Would consider coagulation disorder secondary to infection., In the setting of underlying lymphoma.: Recovered Hematology following. -Acute blood loss anemia, Has received 3 units of blood -Sacral stage II decub ulcer Dressing in place -GERD PPI -Acute diarrhea secondary to tube feeding.: Resolved C. difficile ruled out. -Large superficial gastric antral ulceration involving the gastric antrum extending into the pylorus with gastric outlet obstruction. 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 Port placed. For outpatient PET scan. -Full code No hemodialysis today. Tube feeding at 50 cc an hour. On Precedex.. Continue antibiotics. Discussed with Past Medical History Past Medical History: GERD/Reflux History of Any Multi-Drug Resistant Organisms: None Reported Past Surgical History: Heart Catheterization Additional Past Surgical History / Comment(s): colonsocopy,spinal injection, Past Anesthesia/Blood Transfusion Reactions: No Reported Reaction Past Psychological History: No Psychological Hx Reported Smoking Status: Never smoker Past Alcohol Use History: None Reported Past Drug Use History: None Reported
--- NOTE | 2023-12-17 14:24 | P.PN ---
Subjective Progress Note Date: 12/17/23 Principal diagnosis: Reason for follow-up is pneumonia and bacteremia Patient is 73-year-old with male initial presentation to the hospital on 11/11/2021 for after the patient did have aspiration while undergoing elective endoscopy, diagnosed with a non-Hodgkin of, subsequently did have explained laparotomy for perforated small bowel abdominal washout and feeding jejunostomy tube patient did require dialysis catheter placement for dialysis during this hospital stay and tracheostomy for respiratory failure, infectious was consulted for fever. On today's evaluation that is 12/17/2023, Patient did have improvement in his fever pattern with a temperature of 99.9 F this afternoon patient is hemodynamically stable not requiring any pressor support FiO2 is currently down to 30% no significant purulent secretion the ET or any other changes reported patient is more awake and alert and responds to some simple question. Patient white count is down to 16.2, creatinine is 2.68 sputum with Klebsiella and Pseudomonas blood culture with staph epi Objective - Vital Signs Vital signs: Vital Signs Temp 99.9 F H 12/17/23 12:30 Pulse 86 12/17/23 13:00 Resp 21 12/17/23 13:00 BP 91/56 12/17/23 13:00 Pulse Ox 92 L 12/17/23 13:00 FiO2 30 12/17/23 10:53 Intake & Output 12/16/23 12/17/23 12/17/23 18:59 06:59 18:59 Intake Total 2837 1172.604 537 Output Total 2155 1060 405 Balance 682 112.604 132 Weight 98.5 kg 101 kg Intake: IV 807 236 212 0.9 KVO 170 100 50 DAPTOmycin 600 mg In 50 Sodium Chloride 0.9% 50 ml @ 100 mls/hr IVPB Q48H [facility] Rx#:[id number] Normal Saline Pressure 36 36 12 Saline Piperacillin-Tazobactam 3 100 100 .375 gm In Sodium Chloride 0.9% 100 ml @ 25 mls/hr IVPB Q12HR [facility] Rx #:[id number] Piperacillin-Tazobactam 3 100 .375 gm In Sodium Chloride 0.9% 100 ml @ 25 mls/hr IVPB Q8HR [facility] Rx# :[id number] Vancomycin 1,500 mg In 501 Sodium Chloride 0.9% 500 ml 500 ml @ 167 mls/hr IVPB ONCE ONE Rx#: [id number] Intake, IV Titration 171.604 Amount Dexmedetomidine/0.9% NaCl 81.345 (Pmx) 400 mcg In Empty Bag 1 bag @ 0.2 MCG/KG/HR 4.925 mls/hr IV .[id number] [facility] Rx#:[id number] Norepinephrine 4 mg In 90.259 Sodium Chloride 0.9% 250 ml @ 0.03 MCG/KG/MIN 11. 259 mls/hr IV .[id number] [facility] Rx#:[id number] Tube Feeding 600 600 250 Hemodialysis 1250 Other 180 165 75 Output: Drainage 40 60 90 Right Abdomen 40 60 90 Urine 865 1000 315 Hemodialysis 205 Hemodialysis Net Amount 1045 Other: Voiding Method Indwelling Catheter Indwelling Catheter Indwelling Catheter # Bowel Movements 1 ABP, PAP, CO, CI - Last Documented Arterial Blood Pressure 139/59 - Exam GENERAL DESCRIPTION: An elderly male lying in bed in no distress RESPIRATORY SYSTEM: Unlabored breathing , decreased breath sounds at bases HEART: S1 S2 regular rate and rhythm , ABDOMEN: Soft , no tenderness EXTREMITIES: No edema feet - Labs CBC & Chem 7: 12/17/23 05:30 12/17/23 05:30 Labs: Abnormal Lab Results - Last 24 Hours (Table) 12/16/23 12/16/23 12/17/23 Range/Units 19:02 23:24 05:00 WBC (3.8-10.6) k/uL RBC (4.30-5.90) m/uL Hgb (13.0-17.5) gm/dL Hct (39.0-53.0) % RDW (11.5-15.5) % Neutrophils # (1.3-7.7) k/uL ABG pH 7.48 H (7.35-7.45) ABG pCO2 34 L (35-45) mmHg ABG Total CO2 26 H (19-24) mmol/L ABG O2 Saturation 97.7 H (94-97) % Hemoglobin 7.1 L (13.0-17.5) gm/dL Chloride (98-107) mmol/L BUN (9-20) mg/dL Creatinine (0.66-1.25) mg/dL Glucose (74-99) mg/dL POC Glucose (mg/dL) 153 H 167 H (70-110) mg/dL Calcium (8.4-10.2) mg/dL 12/17/23 12/17/23 12/17/23 Range/Units 05:19 05:30 05:30 WBC 16.2 H (3.8-10.6) k/uL RBC 2.57 L (4.30-5.90) m/uL Hgb 7.1 L (13.0-17.5) gm/dL Hct 22.5 L (39.0-53.0) % RDW 19.1 H (11.5-15.5) % Neutrophils # 14.5 H (1.3-7.7) k/uL ABG pH (7.35-7.45) ABG pCO2 (35-45) mmHg ABG Total CO2 (19-24) mmol/L ABG O2 Saturation (94-97) % Hemoglobin (13.0-17.5) gm/dL Chloride 109 H (98-107) mmol/L BUN 109 H* (9-20) mg/dL Creatinine 2.68 H (0.66-1.25) mg/dL Glucose 186 H (74-99) mg/dL POC Glucose (mg/dL) 203 H (70-110) mg/dL Calcium 7.0 L (8.4-10.2) mg/dL 12/17/23 Range/Units 12:58 WBC (3.8-10.6) k/uL RBC (4.30-5.90) m/uL Hgb (13.0-17.5) gm/dL Hct (39.0-53.0) % RDW (11.5-15.5) % Neutrophils # (1.3-7.7) k/uL ABG pH (7.35-7.45) ABG pCO2 (35-45) mmHg ABG Total CO2 (19-24) mmol/L ABG O2 Saturation (94-97) % Hemoglobin (13.0-17.5) gm/dL Chloride (98-107) mmol/L BUN (9-20) mg/dL Creatinine (0.66-1.25) mg/dL Glucose (74-99) mg/dL POC Glucose (mg/dL) 156 H (70-110) mg/dL Calcium (8.4-10.2) mg/dL Microbiology - Last 24 Hours (Table) 12/14/23 09:46 Blood Culture Gram Stain - Preliminary Blood Blood Culture - Preliminary Staphylococcus epidermidis Molecular ID 12/14/23 11:35 Gram Stain - Final Sputum Sputum Culture - Final Klebsiella oxytoca Pseudomonas aeruginosa Assessment and Plan (1) Sepsis Current Visit: Yes Status: Acute Code(s): A41.9 - SEPSIS, UNSPECIFIED ORGANISM SNOMED Code(s): 51978471 (2) Pneumonia Current Visit: Yes Status: Acute Code(s): J18.9 - PNEUMONIA, UNSPECIFIED ORGANISM SNOMED Code(s): 413000760 (3) Bacteremia Current Visit: Yes Status: Acute Code(s): R78.81 - BACTEREMIA SNOMED Code(s): 1620015 Plan: 1patient with sepsis in this patient has been in the hospital for 34 days before this initial consultation with initial admission to the hospital after elective EGD with the patient was noted to have gastric outlet obstruction and did aspirated subsequently the patient did have laparotomy for perforated small bowel status post resection and jejunostomy tube placement noted to have evidence of a midline abdominal wound dehiscence did have a apical cavitary lesion on the right side with his sputum showing Pseudomonas and Klebsiella, the patient also have positive blood culture with coagulase-negative staph patient did have a PICC line as well as dialysis catheter etiology of his sepsis is likely multifactorial in this patient who did have a complicated history over the last 1 month including pneumonia and possible line related sepsis versus abdominal source 2-patient to continue with Zosyn and daptomycin antibiotic and her course closely. 3blood culture will be repeated at the time of next dialysis, discussed with the nursing staff Dictation was produced using [employer] dictation software. please excuse any grammatical, word or spelling errors. Time with Patient: Less than 30
[2023-12-17 18:37] LABS: Glucose,Whole Blood 120 mg/dL (70-110)
--- NOTE | 2023-12-17 19:06 | CT ---
EXAMINATION TYPE: CT chest abdomen wo con CT DLP: 799.8 mGycm, Automated exposure control for dose reduction was used. DATE OF EXAM: 12/17/2023 6:21 PM COMPARISON: 11/24/2023. CLINICAL INDICATION: Male, 73 years old with history of Possible abscess; PHH, Possible abscess. Technique: CT chest abdomen wo con; Multiple axial images were obtained. Two-dimensional coronal and sagittal reconstructions were obtained. Contrast used: mL of , Oral contrast used: without Oral Contrast Findings: CHEST: LUNGS/ PLEURA: Right upper lung cavitary lesion with air-fluid level in the posterior aspect and a la rger cavitary lesion possibly within the lung parenchyma itself. The airspace opacities and consolida tion extending down towards the diaphragm there is thought to be a small/trace pleural effusion. Erickson tional airspace opacities in the left lung base.. No focal consolidation, pneumothorax or pleural eff usion. AIRWAY: Patent and unremarkable. Tracheostomy cannula terminating in the trachea. HEART: Size within normal limits. MEDIASTINUM: No gross evidence of adenopathy. VASCULATURE: No aortic aneurysm. Left PICC terminating in the cavoatrial junction. Right chest wall Cnncbh-k-Vvna with tip terminating in the right atrium. MUSCULOSKELETAL: No acute osseous abnormalities. SOFT TISSUES/LYMPH NODES: Unremarkable. LOWER NECK: No significant findings. ABDOMEN: ABDOMEN LIVER: Unremarkable GALLBLADDER AND BILE DUCTS: Layering high density compatible with cholelithiasis. PANCREAS: Unremarkable. SPLEEN: Unremarkable. ADRENAL GLANDS: Unremarkable. KIDNEYS AND URETERS: No evidence of hydronephrosis or renal calculus. The ureters are unremarkable. PELVIS BLADDER: Unremarkable REPRODUCTIVE: Unremarkable. ABDOMEN & PELVIS STOMACH AND BOWEL: No evidence of bowel obstruction. J-tube with tip terminating in the left abdomen. PERITONEUM/RETROPERITONEUM: No evidence of pneumoperitoneum or free fluid. VASCULATURE: No evidence of aortic aneurysm. Left lower approach central venous catheter with tip ter minating in the IVC. MUSCULOSKELETAL: No acute osseous abnormalities LYMPH NODES: No gross evidence for lymphadenopathy. SOFT TISSUE/ABDOMINAL WALL: Postsurgical changes anterior abdominal wall with subcutaneous gas and/or packing material present. No organizing fluid collection. IMPRESSION: 1. Right pulmonary airspace opacity within consolidation with large dominant cyst in the posterior a spect of the right upper lung with and air-fluid level possibly representing superimposed infected cy st. This is felt to be within the lung parenchyma itself. Additional airspace opacities throughout th e right lung and left lung to a lesser extent suspicious for infection. 2. Postsurgical changes anterior abdominal wall with subcutaneous gas and/or packing material presen t. No organizing fluid collection. 3. No evidence for intra-abdominal abscess. 4. Left inferior IVC with tip in appropriate position. 5. Left PICC with tip in appropriate position. 6. Right Fzdykz-e-Xfyc with tip in appropriate position. 7. Tracheostomy cannula with tip in appropriate position. 8. Cholelithiasis. 9. J-tube in appropriate position. [facility], Workstation: [id number], 12/17/2023 7:03 PM
--- NOTE | 2023-12-17 21:11 | P.PN ---
Subjective Patient seen and evaluated at bedside. overnight events demonstrates dehissensce for midline wound Objective - Vital Signs Vital signs: Vital Signs Temp 99.6 F 12/17/23 16:00 Pulse 95 12/17/23 19:30 Resp 20 12/17/23 19:30 BP 88/61 12/17/23 19:30 Pulse Ox 97 12/17/23 19:30 FiO2 30 12/17/23 19:15 Intake & Output 12/17/23 12/17/23 12/18/23 06:59 18:59 06:59 Intake Total 1680.786 7348 156.673 Output Total 1060 890 60 Balance 112.604 172 96.673 Weight 101 kg Intake: IV 236 282 10 0.9 KVO 100 120 10 DAPTOmycin 600 mg In 50 Sodium Chloride 0.9% 50 ml @ 100 mls/hr IVPB Q48H [facility] Rx#:[id number] Normal Saline Pressure 36 12 Saline Piperacillin-Tazobactam 3 100 100 .375 gm In Sodium Chloride 0.9% 100 ml @ 25 mls/hr IVPB Q12HR [facility] Rx #:[id number] Intake, IV Titration 171.604 81.673 Amount Dexmedetomidine/0.9% NaCl 81.345 81.673 (Pmx) 400 mcg In Empty Bag 1 bag @ 0.2 MCG/KG/HR 4.925 mls/hr IV .[id number] [facility] Rx#:[id number] Norepinephrine 4 mg In 90.259 Sodium Chloride 0.9% 250 ml @ 0.03 MCG/KG/MIN 11. 259 mls/hr IV .[id number] [facility] Rx#:[id number] Tube Feeding 600 600 50 Other 165 180 15 Output: Drainage 60 170 Right Abdomen 60 170 Urine 1000 720 60 Other: Voiding Method Indwelling Catheter Indwelling Catheter # Bowel Movements 1 ABP, PAP, CO, CI - Last Documented Arterial Blood Pressure 139/59 - Exam gen: nad cv: rrr pul non labored breathing abd: soft, j tube in place, midline incision demonstrating small bowel coming through midline wound - Labs CBC & Chem 7: 12/17/23 05:30 12/17/23 05:30 Labs: Abnormal Lab Results - Last 24 Hours (Table) 12/16/23 12/17/23 12/17/23 Range/Units 23:24 05:00 05:19 WBC (3.8-10.6) k/uL RBC (4.30-5.90) m/uL Hgb (13.0-17.5) gm/dL Hct (39.0-53.0) % RDW (11.5-15.5) % Neutrophils # (1.3-7.7) k/uL ABG pH 7.48 H (7.35-7.45) ABG pCO2 34 L (35-45) mmHg ABG Total CO2 26 H (19-24) mmol/L ABG O2 Saturation 97.7 H (94-97) % Hemoglobin 7.1 L (13.0-17.5) gm/dL Chloride (98-107) mmol/L BUN (9-20) mg/dL Creatinine (0.66-1.25) mg/dL Glucose (74-99) mg/dL POC Glucose (mg/dL) 167 H 203 H (70-110) mg/dL Calcium (8.4-10.2) mg/dL 12/17/23 12/17/23 12/17/23 Range/Units 05:30 05:30 12:58 WBC 16.2 H (3.8-10.6) k/uL RBC 2.57 L (4.30-5.90) m/uL Hgb 7.1 L (13.0-17.5) gm/dL Hct 22.5 L (39.0-53.0) % RDW 19.1 H (11.5-15.5) % Neutrophils # 14.5 H (1.3-7.7) k/uL ABG pH (7.35-7.45) ABG pCO2 (35-45) mmHg ABG Total CO2 (19-24) mmol/L ABG O2 Saturation (94-97) % Hemoglobin (13.0-17.5) gm/dL Chloride 109 H (98-107) mmol/L BUN 109 H* (9-20) mg/dL Creatinine 2.68 H (0.66-1.25) mg/dL Glucose 186 H (74-99) mg/dL POC Glucose (mg/dL) 156 H (70-110) mg/dL Calcium 7.0 L (8.4-10.2) mg/dL 12/17/23 Range/Units 18:36 WBC (3.8-10.6) k/uL RBC (4.30-5.90) m/uL Hgb (13.0-17.5) gm/dL Hct (39.0-53.0) % RDW (11.5-15.5) % Neutrophils # (1.3-7.7) k/uL ABG pH (7.35-7.45) ABG pCO2 (35-45) mmHg ABG Total CO2 (19-24) mmol/L ABG O2 Saturation (94-97) % Hemoglobin (13.0-17.5) gm/dL Chloride (98-107) mmol/L BUN (9-20) mg/dL Creatinine (0.66-1.25) mg/dL Glucose (74-99) mg/dL POC Glucose (mg/dL) 120 H (70-110) mg/dL Calcium (8.4-10.2) mg/dL Microbiology - Last 24 Hours (Table) 12/14/23 09:55 Anaerobic Culture - Preliminary Abdomen Bacteroides thetaiotaomicron 12/14/23 09:46 Blood Culture Gram Stain - Preliminary Blood Blood Culture - Preliminary Staphylococcus epidermidis Molecular ID 12/14/23 11:35 Gram Stain - Final Sputum Sputum Culture - Final Klebsiella oxytoca Pseudomonas aeruginosa Assessment and Plan Assessment: 73 yo male s/p ex lap w/ small bowel resection, j tube insertion -wound dehissence 12/16 -s/p wound vac placement white sponge underneath, black sponge on top -wound care to manage wound vac sat or sat Time with Patient: Greater than 30
[2023-12-18 00:23] LABS: Glucose,Whole Blood 145 mg/dL (70-110)
[2023-12-18 04:49] LABS: ABG Base Excess 1.6 mmol/L; ABG HCO3 24 mmol/L (21-25); ABG Oxygen Saturation 98.2 % (94-97); ABG PCO2 27 mmHg (35-45); ABG PO2 91 mmHg (83-108); ABG TCO2 25 mmol/L (19-24); Allen Test Performed? Yes
[2023-12-18 04:56] LABS: ABG PH 7.56 (7.35-7.45)
[2023-12-18 05:03] LABS: Anisocytosis Slight; Basophils % (A) 0 %; Eosinophils % (A) 0 %; HCT 23.8 % (39.0-53.0); HGB 7.3 gm/dL (13.0-17.5); Hypochromasia Moderate; Lymphocytes # (A) 1.6 k/uL (1.0-4.8); Lymphocytes % (A) 13 %; MCH 27.3 pg (25.0-35.0); MCHC 30.8 g/dL (31.0-37.0); MCV 88.7 fL (80.0-100.0); Mean Platelet Volume 8.6; Monocytes # (A) 0.4 k/uL (0-1.0); Monocytes % (A) 4 %; Neutrophils # (A) 10.2 k/uL (1.3-7.7); Neutrophils % (A) 82 %; Platelet Count 275 k/uL (150-450); RBC 2.68 m/uL (4.30-5.90); RDW 19.2 % (11.5-15.5); WBC 12.5 k/uL (3.8-10.6)
[2023-12-18 05:06] LABS: African American GFR (CKD) 26 (>60 ml/min/1.73 sqM); Anion Gap 11 mmol/L; Calcium 7.2 mg/dL (8.4-10.2); Carbon Dioxide 23 mmol/L (22-30); Chloride 113 mmol/L (98-107); Glucose 167 mg/dL (74-99); Non-African American GFR(CKD) 23 (>60 ml/min/1.73 sqM); Potassium 3.4 mmol/L (3.5-5.1); Sodium 147 mmol/L (137-145)
[2023-12-18 05:11] LABS: Blood Urea Nitrogen 116 mg/dL (9-20)
[2023-12-18 05:57] LABS: Glucose,Whole Blood 184 mg/dL (70-110)
--- NOTE | 2023-12-18 07:34 | XR ---
EXAMINATION TYPE: XR chest 1V portable DATE OF EXAM: 12/18/2023 5:46 AM CLINICAL INDICATION: Male, 73 years old with history of mechanical ventilation; PHH COMPARISON: Chest radiographs from 12/17/2023, CT also TECHNIQUE: XR chest 1V portable Frontal view of the chest. FINDINGS: Lungs/Pleura: Right apical cavitary lesion unchanged from prior. No evidence of focal consolidation o r pneumothorax. Blunting of the costophrenic angles is present. Pulmonary vascularity: Unremarkable. Heart/mediastinum: Cardiomediastinal silhouette is unremarkable. Musculoskeletal: No acute osseous pathology. Other findings: None Lines/Tubes: Tracheostomy cannula tip projecting over the trachea. Ixegxq-s-Anrh projecting over the right hemithorax with distal tip at the cavoatrial junction. Left-sided PICC with distal tip at the superior vena cava/brachiocephalic confluence. IMPRESSION: Stable exam with mild right apical cavitary lesion and consolidation changes as seen on CT. [facility], , 12/18/2023 7:31 AM
--- NOTE | 2023-12-18 09:44 | P.PN ---
Subjective Progress Note Date: 12/17/23 12/17/2023: Patient was seen for a follow-up. Patient's was also present, who believes that patient is doing better. Patient is nodding appropriately. He is still very weak in the arms and legs, not able to follow directions otherwise. Patient nods "no" for headache. Patient has tracheostomy. 12/16/2023: Patient was seen for a follow-up. Patient is laying in the bed, severely encephalopathic. Patient now has tracheostomy. Patient currently on Precedex 0.2 mcg/kg/h. Also on vancomycin. Patient getting hemodialysis as of now. 12/08/2023: Patient was seen for a follow-up. Patient's was also present. Per nursing report, with sedation holiday, patient opens eyes, but does not follow commands, does not track. Does not even response to yes/no questions. Patient does move right arm sometimes. Patient starts desynchronized ve ntilation therefore has to be put back on Precedex. Patient currently on Precedex 0.6 g per program per hour. Objective - Vital Signs Vital signs: Vital Signs Temp 99.4 F 12/18/23 08:30 Pulse 93 12/18/23 09:00 Resp 20 12/18/23 09:00 BP 105/71 12/18/23 09:00 Pulse Ox 95 12/18/23 09:00 FiO2 30 12/18/23 09:20 Intake & Output 12/17/23 12/18/23 12/18/23 18:59 06:59 18:59 Intake Total 1062 1081.673 75 Output Total 890 1195 75 Balance 172 -113.327 0 Weight 99.3 kg Intake: IV 282 220 10 0.9 KVO 120 120 10 DAPTOmycin 600 mg In 50 Sodium Chloride 0.9% 50 ml @ 100 mls/hr IVPB Q48H [facility] Rx#:[id number] Normal Saline Pressure 12 Saline Piperacillin-Tazobactam 3 100 .375 gm In Sodium Chloride 0.9% 100 ml @ 25 mls/hr IVPB Q12HR [facility] Rx #:[id number] Piperacillin-Tazobactam 3 100 .375 gm In Sodium Chloride 0.9% 100 ml @ 25 mls/hr IVPB Q8HR [facility] Rx# :[id number] Intake, IV Titration 81.673 Amount Dexmedetomidine/0.9% NaCl 81.673 (Pmx) 400 mcg In Empty Bag 1 bag @ 0.2 MCG/KG/HR 4.925 mls/hr IV .[id number] [facility] Rx#:[id number] Tube Feeding 600 600 50 Other 180 180 15 Output: Drainage 170 Right Abdomen 170 Urine 720 1195 75 Other: Voiding Method Indwelling Catheter Indwelling Catheter # Bowel Movements 1 ABP, PAP, CO, CI - Last Documented Arterial Blood Pressure 139/59 - Exam On examination patient is laying in the bed. Patient is intubated, with tracheostomy. Patient is still encephalopathic, but more awake than yesterday. Patient has very slow mentation. He sometimes nods appropriately, like on asking about his , he nodded "yes". He nodded "no" for headache. Pupils are equal, round and reacting. Oculocephalics are inhibited. Corneals are present. Patient is breathing over the ventilator. Rest of the examination is unchanged. Patient sometimes move his right arm, also moves his head [id number]. Patient very weak. - Labs CBC & Chem 7: 12/18/23 04:03 12/18/23 04:03 Labs: Abnormal Lab Results - Last 24 Hours (Table) 12/17/23 12/17/23 12/18/23 Range/Units 12:58 18:36 00:21 WBC (3.8-10.6) k/uL RBC (4.30-5.90) m/uL Hgb (13.0-17.5) gm/dL Hct (39.0-53.0) % MCHC (31.0-37.0) g/dL RDW (11.5-15.5) % Neutrophils # (1.3-7.7) k/uL ABG pH (7.35-7.45) ABG pCO2 (35-45) mmHg ABG Total CO2 (19-24) mmol/L ABG O2 Saturation (94-97) % Hemoglobin (13.0-17.5) gm/dL Sodium (137-145) mmol/L Potassium (3.5-5.1) mmol/L Chloride (98-107) mmol/L BUN (9-20) mg/dL Creatinine (0.66-1.25) mg/dL Glucose (74-99) mg/dL POC Glucose (mg/dL) 156 H 120 H 145 H (70-110) mg/dL Calcium (8.4-10.2) mg/dL 12/18/23 12/18/23 12/18/23 Range/Units 04:03 04:03 04:48 WBC 12.5 H (3.8-10.6) k/uL RBC 2.68 L (4.30-5.90) m/uL Hgb 7.3 L (13.0-17.5) gm/dL Hct 23.8 L (39.0-53.0) % MCHC 30.8 L (31.0-37.0) g/dL RDW 19.2 H (11.5-15.5) % Neutrophils # 10.2 H (1.3-7.7) k/uL ABG pH 7.56 H* (7.35-7.45) ABG pCO2 27 L (35-45) mmHg ABG Total CO2 25 H (19-24) mmol/L ABG O2 Saturation 98.2 H (94-97) % Hemoglobin 7.2 L (13.0-17.5) gm/dL Sodium 147 H (137-145) mmol/L Potassium 3.4 L (3.5-5.1) mmol/L Chloride 113 H (98-107) mmol/L BUN 116 H* (9-20) mg/dL Creatinine 2.68 H (0.66-1.25) mg/dL Glucose 167 H (74-99) mg/dL POC Glucose (mg/dL) (70-110) mg/dL Calcium 7.2 L (8.4-10.2) mg/dL 12/18/23 Range/Units 05:56 WBC (3.8-10.6) k/uL RBC (4.30-5.90) m/uL Hgb (13.0-17.5) gm/dL Hct (39.0-53.0) % MCHC (31.0-37.0) g/dL RDW (11.5-15.5) % Neutrophils # (1.3-7.7) k/uL ABG pH (7.35-7.45) ABG pCO2 (35-45) mmHg ABG Total CO2 (19-24) mmol/L ABG O2 Saturation (94-97) % Hemoglobin (13.0-17.5) gm/dL Sodium (137-145) mmol/L Potassium (3.5-5.1) mmol/L Chloride (98-107) mmol/L BUN (9-20) mg/dL Creatinine (0.66-1.25) mg/dL Glucose (74-99) mg/dL POC Glucose (mg/dL) 184 H (70-110) mg/dL Calcium (8.4-10.2) mg/dL Microbiology - Last 24 Hours (Table) 12/14/23 09:55 Anaerobic Culture - Preliminary Abdomen Bacteroides thetaiotaomicron 12/14/23 09:46 Blood Culture Gram Stain - Preliminary Blood Blood Culture - Preliminary Staphylococcus epidermidis Molecular ID 12/14/23 11:35 Gram Stain - Final Sputum Sputum Culture - Final Klebsiella oxytoca Pseudomonas aeruginosa Assessment and Plan Assessment: * Altered mental status, likely due to toxic metabolic encephalopathy, severe * Abnormal EEG, with severe encephalopathy. 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 Plan: * Stat EEG was performed on 12/08/2023: It revealed generalized slowing of severe degree. This is suggestive of generalized cerebral dysfunction as can be seen with toxic metabolic encephalopathy or related to diffuse structural brain about a day. Clinical correlation is recommended. Sporadic, periodic generalized sharp-appearing waves were seen. This may suggest underlying cortical irritability. No electrographic seizure was recorded. * Therefore, empirically started on Keppra 500 mg daily. * Repeat EEG on 12/12/2023: Is abnormal. The study is limited because of diffuse myogenic artifact. The background slowing is suggestive of severe e ncephalopathy. Otherwise no focal slowing, epileptiform discharges or seizure on the EEG. * CT head performed 12/07/2023 revealed no acute intracranial process. Some atrophy. I personally reviewed CT head agree with the findings. * Patient is generalized weak. Patient has been ICU for extended period of time. At risk for critical illness myopathy. * Patient currently on daptomycin and Zosyn. ID following. * For medical management as per critical care and other specialties on board. * Discussed with patient's . Patient is improving mentally.
--- NOTE | 2023-12-18 11:08 | P.PN ---
Subjective Patient is seen for follow-up for acute kidney injury. Maintained on Precedex. Urine output at 70-60 mL per hour. Edema has improved. Mentation has improved. seen on hemodialysis. There were poor flows on the catheter which is a left- sided femoral tunneled catheter Objective - Vital Signs Vital signs: Vital Signs Temp 99.4 F 12/18/23 08:30 Pulse 93 12/18/23 09:00 Resp 20 12/18/23 09:00 BP 105/71 12/18/23 09:00 Pulse Ox 95 12/18/23 09:00 FiO2 30 12/18/23 09:20 Intake & Output 12/17/23 12/18/23 12/18/23 18:59 06:59 18:59 Intake Total 1062 1081.673 152.303 Output Total 890 1195 75 Balance 172 -113.327 77.303 Weight 99.3 kg 99.3 kg Intake: IV 282 220 10 0.9 KVO 120 120 10 DAPTOmycin 600 mg In 50 Sodium Chloride 0.9% 50 ml @ 100 mls/hr IVPB Q48H [facility] Rx#:[id number] Normal Saline Pressure 12 Saline Piperacillin-Tazobactam 3 100 .375 gm In Sodium Chloride 0.9% 100 ml @ 25 mls/hr IVPB Q12HR [facility] Rx #:[id number] Piperacillin-Tazobactam 3 100 .375 gm In Sodium Chloride 0.9% 100 ml @ 25 mls/hr IVPB Q8HR [facility] Rx# :[id number] Intake, IV Titration 81.673 77.303 Amount Dexmedetomidine/0.9% NaCl 81.673 77.303 (Pmx) 400 mcg In Empty Bag 1 bag @ 0.2 MCG/KG/HR 4.925 mls/hr IV .[id number] [facility] Rx#:[id number] Tube Feeding 600 600 50 Other 180 180 15 Output: Drainage 170 Right Abdomen 170 Urine 720 1195 75 Other: Voiding Method Indwelling Catheter Indwelling Catheter # Bowel Movements 1 ABP, PAP, CO, CI - Last Documented Arterial Blood Pressure 139/59 - Exam patient is on the vent. Mentation has improved Examination of the heart S1 and S2 Examination of the lungs bilateral breath sounds are heard Abdomen is soft dressed, RAYA drain noted Examination of lower extremities shows no significant edema in the legs. 1+ edema noted in bilateral upper extremities. - Labs CBC & Chem 7: 12/18/23 04:03 12/18/23 04:03 Labs: Abnormal Lab Results - Last 24 Hours (Table) 12/17/23 12/17/23 12/18/23 Range/Units 12:58 18:36 00:21 WBC (3.8-10.6) k/uL RBC (4.30-5.90) m/uL Hgb (13.0-17.5) gm/dL Hct (39.0-53.0) % MCHC (31.0-37.0) g/dL RDW (11.5-15.5) % Neutrophils # (1.3-7.7) k/uL ABG pH (7.35-7.45) ABG pCO2 (35-45) mmHg ABG Total CO2 (19-24) mmol/L ABG O2 Saturation (94-97) % Hemoglobin (13.0-17.5) gm/dL Sodium (137-145) mmol/L Potassium (3.5-5.1) mmol/L Chloride (98-107) mmol/L BUN (9-20) mg/dL Creatinine (0.66-1.25) mg/dL Glucose (74-99) mg/dL POC Glucose (mg/dL) 156 H 120 H 145 H (70-110) mg/dL Calcium (8.4-10.2) mg/dL 12/18/23 12/18/23 12/18/23 Range/Units 04:03 04:03 04:48 WBC 12.5 H (3.8-10.6) k/uL RBC 2.68 L (4.30-5.90) m/uL Hgb 7.3 L (13.0-17.5) gm/dL Hct 23.8 L (39.0-53.0) % MCHC 30.8 L (31.0-37.0) g/dL RDW 19.2 H (11.5-15.5) % Neutrophils # 10.2 H (1.3-7.7) k/uL ABG pH 7.56 H* (7.35-7.45) ABG pCO2 27 L (35-45) mmHg ABG Total CO2 25 H (19-24) mmol/L ABG O2 Saturation 98.2 H (94-97) % Hemoglobin 7.2 L (13.0-17.5) gm/dL Sodium 147 H (137-145) mmol/L Potassium 3.4 L (3.5-5.1) mmol/L Chloride 113 H (98-107) mmol/L BUN 116 H* (9-20) mg/dL Creatinine 2.68 H (0.66-1.25) mg/dL Glucose 167 H (74-99) mg/dL POC Glucose (mg/dL) (70-110) mg/dL Calcium 7.2 L (8.4-10.2) mg/dL 12/18/23 Range/Units 05:56 WBC (3.8-10.6) k/uL RBC (4.30-5.90) m/uL Hgb (13.0-17.5) gm/dL Hct (39.0-53.0) % MCHC (31.0-37.0) g/dL RDW (11.5-15.5) % Neutrophils # (1.3-7.7) k/uL ABG pH (7.35-7.45) ABG pCO2 (35-45) mmHg ABG Total CO2 (19-24) mmol/L ABG O2 Saturation (94-97) % Hemoglobin (13.0-17.5) gm/dL Sodium (137-145) mmol/L Potassium (3.5-5.1) mmol/L Chloride (98-107) mmol/L BUN (9-20) mg/dL Creatinine (0.66-1.25) mg/dL Glucose (74-99) mg/dL POC Glucose (mg/dL) 184 H (70-110) mg/dL Calcium (8.4-10.2) mg/dL Microbiology - Last 24 Hours (Table) 12/14/23 09:55 Anaerobic Culture - Preliminary Abdomen Bacteroides thetaiotaomicron 12/14/23 09:46 Blood Culture Gram Stain - Preliminary Blood Blood Culture - Preliminary Staphylococcus epidermidis Molecular ID 12/14/23 11:35 Gram Stain - Final Sputum Sputum Culture - Final Klebsiella oxytoca Pseudomonas aeruginosa Assessment and Plan Assessment: 1. Acute kidney injury secondary to ATN secondary to septic shock. Creatinine 0.86 on admission and up to 5.38 dated November 29, 2023. nonoliguric. UA fairly benign. No hydronephrosis noted on imaging. Started hemodialysis on 11/29/2023 for worsening volume status and acute kidney injury. 2. Perforated small bowel status post exploratory laparotomy with abdominal washout, small bowel resection and J-tube replacement November 25, 2023. 3. A-fib with RVR. s/p amiodarone drip. Also received digoxin this admission. 4. Recently diagnosed gastric B-cell lymphoma. 5. Septic shock. Likely abdominal source. On IV antibiotics. Off vasopressors now. 6. Hypocalcemia secondary to acute kidney injury. Replaced. Improved. 7. Metabolic acidosis secondary to acute kidney injury. Improved. 8. Volume overload, improved significantly. 9. Hypernatremia Plan: increase free water down the feeding tube No UF with hemodialysis today. Replace potassium continue with antibiotics Continue Aranesp Continue with Aranesp
[2023-12-18 11:46] LABS: Glucose,Whole Blood 127 mg/dL (70-110)
[2023-12-18] MEDS: ALTEPLASE 2 MG VIAL (CATHFLO) MISCELLANE ONE (12:30)
--- NOTE | 2023-12-18 13:19 | P.PN ---
Progress Note - Text Progress Note Date: 12/18/23 Chief Complaint: Aspirated This is a 73-year-old patient, follows with Dr. Patricia Deal. Patient was seen this morning in the ICU. Patient's and daughter at the bedside. History obtained predominantly by the . Patient been having trouble with his stomach symptoms for close to 8 months. Patient underwent EGD by Dr. Sahara Cheng yesterday. Patient was found to have ulcerated around the antrum and obstruction to the pylorus. A lot of retained food was found. Patient aspirated. Had to be intubated and brought to the ICU. On a Levophed drip. FiO2 50 and a PEEP of 6. Patient had been losing weight lost about 25 pounds. Previously has a history of mitral valve prolapse. November 13: ICU. Patient remains on Precedex drip and propofol drip. Did not do well attempted extubation yesterday. Patient been off Levophed. NG tube to suction. Spoke to patient's and son at the bedside. Biopsy results awaited. Hemoglobin dropped to 6.9 this morning. Get a unit of blood. November 14: ICU. Up in a chair. Extubated yesterday. NG tube to suction. at the bedside. 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 Oncology was consulted. They have ordered a port. Results discussed with Dr. Sahara Cheng. General surgery was consulted for J-tube placement. Discussed with at the bedside. Patient getting IV fluids, IV Zosyn,. Patient has been on IV amiodarone for A-fib-back in sinus rhythm. Multiple PACs. Did receive unit of blood yesterday. Also IV ferric gluconate. November 15: ICU. Patient earlier today underwent jejunostomy tube placement and a port placement. Patient awake. Answering questions. NG tube to suction present. Updated patient's . Patient remains on IV amiodarone and IV Zosyn. November 16: ICU. Up in the chair. NG tube present but not to suction. Trickle feeding through the jejunostomy tube should be started today. Dietitian has been on board. IV Zosyn to continue. Patient's and his sister at the bedside. Discussed. Also spoke with Dr. Serna. Given patient has no other predisposing cardiac factors for the A-fib except acute illness. His LV function is normal. Left atrium is normal. He has already been loaded with IV amiodarone. Will switch him to oral Lopressor 12.5 twice daily. Hence will DC amiodarone. Patient yesterday had wheezing was put on bronchodilators steroids per pulmonary. November 17: Propped up in bed. NG tube was discontinued. Sinus rhythm. Remains NPO. Getting G-tube feeding at 40 cc an hour. Dietitian following. Get arrangements done for DC home tomorrow including tube feeding. Increase activity discussed with patient and elder daughter at the bedside. Still requiring oxygen. Incentive spirometry. November 18: Patient up in recliner. Earlier today spoke to social and political studies professor David. Informed patient is rather weak and will be going to the [facility]. Looking at authorization. Denae came to the room and spoke to patient his and his daughter. They are very keen to take the patient home as 3 daughters all nurses and they will take care of him at home. Patient earlier today to abdominal cramping and some loose stools.'s tube feeding was held. Told the nurse to start back at the rate of 40 cc an hour. He was before the getting it at 55 cc an hour. Incentive spirometry was again emphasized. Patient remains on 4 L of oxygen. November 19: I saw the patient this morning. Hence I am in the evening. Morning was sitting with his sons. Has some edema. Lungs had crackles I gave him 40 mg of Lasix. He did make good urine. Tube feeding was held from the previous evening of because of abdominal cramping. Acute abdominal series showed nonspecific bowel gas pattern and SBO to be ruled out. Family and patient was updated. Told him discharge will depend on day by day. Later this afternoon CT scanAnd abdomen pelvis done. Showed small bowel to be 3 point centimeter dilated. Some anasarca. Gastric findings. Gallstones. Later spoke to Dr. Irby from general surgery. They will further review and decide about further plan of action. Will give further dose of IV Lasix because of fluid overload from likely hypoalbuminemia and IV fluids previously received. Patient may take his pills by mouth. Total time spent today about 1 hour with over 40 minutes of discussion. Patient did state his breathing is better after Lasix this morning. November 20: Saw the patient this morning. was present. Patient received 2 more doses of Lasix. Diuresed well. Breathing much better. Lungs are sounding better. Discussed with Dr. Zepeda other surgeon. He is taking 3 cc out of the balloon and the gastrostomy tube. Started trickle feeding at 5 cc an hour. Will see how this does. Later in the day ran into the and the daughter again. Did update them on the same. Dilaudid was discontinued yesterday but morphine was ordered by surgery for patient having pain. Concerns about GI issues with that we will DC the morphine. As family does not want the same. November 21: Patient reclining bed. Tired. Several family members at the bedside. Including his and eldest daughter. Patient started on trickle feed yesterday at 5 cc an hour. This morning he has been on 10 cc an hour. Still having some loose stools. C. difficile was ordered. Patient on 2 L of nasal cannula. Has diuresed well. Will give an additional dose of Lasix today. If C. difficile is negative and the diarrhea is from the tube feedings we may have to use a fecal management system to keep him comfortable. Otherwise patient remains NPO. Dietitian is following the patient. Care was discussed length with patient the and daughter at the bedside. Questions answered. Liquid Tylenol has been added for abdominal pain. Avoid narcotics. Elevated white count likely from Solu-Medrol 11/23/2023--patient was feeling better today. Multiple family member at bedside. No issues overnight. Normal saline at 10 cc an hour, tube feeding at 20 cc an hour, remains on Zosyn, on 3 L oxygen. Afebrile. Heart rate 62, respiratory rate 16, blood pressure 114/67, saturating 91% on 3 L. WBCs 14.5, 9.7 hemoglobin. Platelet 242. BMP is unremarkable. Pulmonary and general surgery following. General surgery recommended to continue tube feeds at 20 cc/h. 11/24/2023--patient reported significant abdominal discomfort, also noted to have leak around G-tube. General surgery is following, evaluated the patient at bedside, adjusted tube feeds. Also reported having diarrhea, on 2 L oxygen, went up to 5 L. Blood pressure was low, 500 mL fluid bolus with close monitoring of respiratory status ordered. Currently on DuoNebs, Solu-Medrol, will continue Zosyn. Chest x-ray showed a left lower lobe infiltrate. Abdominal x-ray showed multiple air-fluid levels. CT abdomen showed multiple dilated small bowel loops, consistent with obstruction, pneumoperitoneum, cholelithiasis and ascites. WBCs 14.1, platelet 255, hemoglobin 8.9. NG tube in place. Family at bedside. patient transferred to SICU for close monitoring. 11/25/23--patient is currently in the ICU, required Levophed overnight due to low blood pressure, low urine output with creatinine trending up. Nephrology following. Front Office Spec also following. Patient remains n.p.o., NG tube in place, following NG tube insertion patient had total of 2 L output, J-tube was draining approximately 200 cc over last 8 hours, continues to have abdominal pain and abdominal tenderness. Patient on IV fluids. Currently on 4 L oxygen. WBCs 8.2, hemoglobin 12.3, platelet 188. Chest x-ray earlier today showed right sided port and a stable left lung airspace disease, NG tube in place. Patient currently on Zosyn, on IV Dilaudid for pain control, on IV Solu-Medrol. General surgery planning for OR today, started on TPN. 11/26/23--patient was seen and examined today. Patient is currently sedated, intubated on mechanical ventilation. Family at bedside. Patient underwent ex lap, abdominal washout, small bowel resection with new feeding jejunostomy tube placement yesterday, small bowel was noted to be perforated with significant contamination of abdominal cavity. Patient is currently on vancomycin and Zosyn. Creatinine went up to 2.85, nephrology following, recommended to continue IV fluids, avoid nephrotoxin Preserved EF on echocardiogram.. Patient currently on Levophed, vasopressin in the ICU for close monitoring. Patient is afebrile, heart rate 122, blood pressure 129/76, currently on mechanical ventilation, sedated. November 26: ICU. Intubated. FiO2 60 and a PEEP of 5. Drips include IV amiodarone. Heart rate was up early did get fired microgram of IV digoxin and 2.5 mg of IV Lopressor. Did drop her blood pressure bit. Urine output was low. Received 80 mg of IV Lasix. Ahmet to 150 cc. Other drips include IV propofol, vasopressin, Levophed. TPN was started yesterday. Antibiotics include IV Zosyn and vancomycin. Patient has a J-tube to drainage to gravity. Spoke to patient's younger daughter and at the bedside. Prognosis guarded. Continue current treatment plan. Chest x-ray shows right lower lobe consolidation. Small pleural effusion. November 27: ICU. Intubated. FiO2 55 and a PEEP of 5. Antibiotics include IV vancomycin. Drips include Levophed at a small dose, IV vasopressin, propofol, amiodarone. Patient converted to sinus rhythm this morning. Getting TPN and normal saline at 75 cc an hour. Urine output about 25 cc an hour. RAYA drain put out about 260 cc last 12 hours that is last mold blower. NG tube with bilious output. And also GI J-tube output to gravity. Spoke to patient's and daughter at the bedside. They understand patient still not out of the kee. Platelets have dropped-therefore probably Zosyn stopped. November 28: ICU. Intubated. FiO2 55 and a PEEP of 5. Patient is in sinus rhythm. Seen this morning. Due for dialysis catheter this afternoon. Urine output about 15 to 20 cc an hour. Patient is on IV Lasix 80 mg every 12. Saline is KVO. Drips include IV propofol vasopressin. Patient having significant output through the RAYA drain and the jejunostomy tube to drainage. Creatinine had been getting worse. Patient's at the bedside. Understands patient's remains critically ill. Hemoglobin is down to 7. Given that patient's pain hypotensive, and on vasopressin we will give a unit of blood with dialysis. Getting TPN antibiotic changed to IV meropenem November 29: ICU. Intubated. FiO2 55 and a PEEP of 5. Remains in sinus rhythm. Getting TPN. Dialyzed yesterday and this morning. About 1000 cc removed. Urine output about 50 cc an hour. Patient is on IV propofol. Off vasopressin. Still having significant output through the RAYA drain and jejunostomy tube. Patient received a second unit of blood yesterday. Patient's and daughter at the bedside. I did discuss guarded prognosis. Did asked them to revisit CODE STATUS.. Getting IV meropenem. November 30: ICU. Intubated. Did get a sedation holiday t today. Back on propofol. Getting TPN. Still getting IV Lasix. Fair urine output. Jejunostomy tube in last 8 hours was about 30 cc output. RAYA drain in the 8 hours had about 180 cc output. Telemetry shows sinus rhythm. NG tube has low intermittent suction with negative output. On the vent with FiO2 40 and a PEEP of 5. No hemodialysis today. Discussed with the and eldest daughter at the bedside. IV meropenem-patient's sputum had grown Citrobacter freundii and Pseudomonas aeruginosa. December 01: ICU. Intubated. Jejunostomy tube to gravity. Only 10 cc output in last 24 hours. RAYA drain. About 190 cc last 6 hours. Nasogastric tube to low intermittent suction. Minimal output. Patient is on a small dose of propofol 5 mics. Telemetry shows sinus rhythm. Patient started on small dose of Cleviprex this morning. Blood pressure. Getting TPN. FiO2 35 and PEEP of 5. Discussed with the at the bedside. Hemodialysis today December 02: ICU. Patient remains intubated. FiO2 35 PEEP of 5. Patient is on IV propofol. IV Cleviprex was discontinued yesterday. Also remains on TPN. Telemetry shows sinus rhythm. NG tube is good no output. Still significant output through the RAYA drain. Jejunostomy tube has minimal output. Patient had hemodialysis today 2 L of fluid was removed. Oral half liters yesterday. Patient getting a sedation holiday. General Surgery started the patient on trickle feeding at 10 cc an hour. I did speak to patient's at the bedside. Prognosis remains guarded but there is some improvement. December 03: ICU. Intubated. FiO2 35 PEEP of 5. Drips include IV propofol and Precedex. Getting TPN. Telemetry shows sinus rhythm. Remains on IV Lasix 80 mg twice a day. IV meropenem. Because patient gets easily agitated when transitioning off propofol he has been switched over to Precedex. For hemodialysis today. December 04: ICU. Intubated. FiO2 35 and a PEEP of 5. Patient been taken off propofol is on Precedex. Telemetry sinus rhythm. J-tube with minimal output. RAYA drain with decreased output. NG tube to suction minimal output. Family wanted to hold off trickle feeding until cleared by oncology. Which he did today. Trickle feeding will be started today. Spoke to patient's and one of the daughters at the bedside. Dr. Russ is spoken to the earlier this point they want to do further tracheostomy tube. December 05: ICU. Intubated. FiO2 35 PEEP of 5. Patient remains on Precedex and PPN. Patient's dialysis catheter was not functioning is getting another [address] Bobby this afternoon. Remains on IV meropenem. Has a RAYA drain in the jejunostomy tube to gravity. NG tube to low intermittent suction. No family at the bedside. December 06: ICU. Intubated. FiO2 35 PEEP of 5. RAYA drain putting out about approximately 120 cc per shift. Patient on IV Precedex. FiO2 35 PEEP of 5. Telemetry-sinus rhythm. Patient occasionally been put on small dose of Levophed specially for hemodialysis getting it today. Also started on midodrine for low blood pressure. Tolerating tube feeding at 10 cc an hour. Also had a bowel movement. Mentation has not improved. Even with sedation holiday. Neurology consulted. CT brain shows no acute process. December 07: ICU. Intubated. FiO2 35 PEEP of 5. Telemetry-sinus rhythm. NG tube to suction low intermittent minimal output. Getting TPN. Tube feeding at 20 cc an hour. RAYA drain averaging over 100 cc per shift. Remains on Precedex. EEG was done today. Discussed with at the bedside. Family is currently not inclined for tracheostomy tube today. Day 13 of being intubated December 08: ICU. Intubated. FiO2 35 PEEP of 5. Patient is put on back on propofol per internet network specialist Dr. BINGHAM. EEG did show some potential for spikes was put on Keppra by neurology. Telemetry shows sinus rhythm. NG tube to suction with no output. Tube feeding was put on hold because of questionable discharge on the site. Being restarted today. RAYA drain is 150 cc last 12-hour shift. Patient does open eyes. Family has decided to proceed with tracheostomy and surgery has been consulted for the same. Spoke to the at the bedside. For hemodialysis today. December 09: ICU. Intubated FiO2 35 PEEP of 5. Patient seen this morning. Pending tracheostomy placement this afternoon. Remains NPO. G-tube feeding was held overnight. RAYA drain putting out about 100 cc per shift. Received a unit of blood for hemoglobin of 6.6. On 25 mics of propofol. Getting TPN and meropenem. Spoke to the at the bedside. Patient became hypotensive with dialysis yesterday. Levophed had to be given. Only 800 cc were removed yesterday. No hemodialysis today. December 10: ICU . FiO2 35, PEEP 5. Tracheostomy was done yesterday by Dr. Ewign. G-tube feeding was started today at 10 cc an hour. Dietitian following. RAYA drain 12-hour shift overnight put out about 30 cc. Patient hemodialysis to day about 1 L removed. Patient has a sacral stage II decub with a dressing. On propofol 20 mics. Spoke to at the bedside. TPN. Meropenem was discontinued yesterday. December 11: ICU. FiO2 35 PEEP of 5. Tracheostomy. NG tube was discontinued. No hemodialysis today. Telemetry shows sinus rhythm. J-tube feeding at 40 cc an hour. TPN was discontinued. Patient has been off propofol also. PICC line in place. Patient had a EEG done today. Spoke to patient's elder daughter at the bedside. May open eyes occasionally. Not really following commands December 12: 73-year-old white male with history of chronic abdominal pain for the last 8 months has been treated with Protonix 40 mg daily for the last 3 months with no improvement. Patient had a 22 pound weight loss in the last [address] of the abdomen and pelvis 3 weeks ago showed thickening of the antral wall with pathological adenopathy posterior to the stomach suspicious of neoplasm. Today the patient underwent elective upper endoscopy to evaluate further, patient received IV sedation by anesthesia endoscope was inserted into the mouth, esophagus was intubated without any difficulty there was evidence of large amount of liquid and solid food noted in the stomach suggestive of gastric outlet obstruction. Scope could not be advanced through the pylorus, however in the prepyloric area there was a large superficial ulceration identified with multiple biopsies were done from this area. The body cardia and fundus could not adequately visualize because of large amount of retained food in the stomach. Scope was withdrawn back to the stomach and upon careful examination the mucosa of the antrum body and cardia as well as the fundus appeared normal. Procedure was being performed and biopsies were done patient threw up and subsequently became hypoxic there was clearly evidence of witnessed aspiration anesthesia intubated the patient, procedure was terminated, and the patient was transferred to the ICU, this consult was initiated. Patient is now on assist- control rate of 20 tidal volume 500 FiO2 70% PEEP of 10 ABG is pending, earlier ABG showed profound hypoxia patient is on propofol at 50 mcg/kg/min, next ABG is pending. Chest x-ray showed chronic changes without evidence of acute pulmonary disease. 12/14/2023 Patient remains in the ICU, generally weak Patient s/p tracheostomy G-tube in place Patient still has fever and mild tachycardia but tachycardia is improving, leukocytosis improving as well. Hemoglobin 8.1. Creatinine 3.0 and nephrology team on the case. He has mild transaminitis. He was getting Zosyn which is held now, nowCalcitonin is pending 12/14 Patient shon in the ICU, he is still encephalopathic and does not follow command. Neurology service following closely. He is status post tracheostomy. Also J-tube His abdomen looks soft and on exam he has mild coarse secretions. Has a Abarca catheter with clear urine His pro- Calcitonin is still high but trending down 3.0 down to 1.9 No fever this morning WBC slightly less at 16.3 Patient currently off antibiotic He is getting steroids IV Solu-Medrol which might contribute to his leukocytosis. Also he is on IV Keppra by neurologist 12/14 Patient remains confused in the ICU calm, he had a good night per family member and staff. Tracheostomy in place Patient has occasional coughing spells, patient also developed some partial wound dehiscence in his abdomen, surgery team are aware and are going to evaluate the patient Patient also has positive blood culture from 12/13: Gram-positive cocci in clusters. Patient received one-time dose of IV vancomycin. Patient also had fever 2 days ago, leukocytosis and total elevated pro- Calcitonin. Therefore we are going to consult infectious disease team. As his antibiotic Zosyn was stopped few days ago. Currently patient KVO He has good urine output December 15: ICU. Trach. Congested. Requiring suctioning. No hemodialysis today. Getting G-tube feeding at 50 cc an hour. FiO2 30 and a PEEP of 5. On IV Precedex. Eyes open. Does follow commands. Weakness in the limbs. Spoke to at the bedside. Sputum positive for Klebsiella oxytoca and Pseudomonas aeruginosa. December 16: ICU. On trach. Currently cough with increased secretions requiring suctioning. Adding scopolamine patch. Very much clear secretion. CT scan is showing right upper lobe lung abscess. G-tube feeding at 50 cc an hour. Hemodialysis today. RAYA drain putting out about 140 cc a shift. Serous. Has been midline incision wound dehiscence. Wound VAC was placed on it. Stage II ulcer. Patient is on Precedex drip 0.15 mics. Urine output is good about 6200 cc an hour. Spoke to the at the bedside. Patient currently not stable for transfer to LTAC. No limb movements. PT OT on the case. otherwise awake does follow simple commands by face Active Medications Acetaminophen (Acetaminophen Tab 325 Mg Tab) 650 mg PO Q4HR PRN PRN Reason: Fever and/ or Pain Last Admin: 12/09/23 20:09 Dose: 650 mg Acetaminophen (Acetaminophen Oral Susp (Peds) 3,840 Mg/120 Ml Bottle) 480 mg PO Q4HR PRN PRN Reason: Fever Albuterol/Ipratropium (Ipratropium-Albuterol 3 Ml Neb) 3 ml INHALATION RT-QID NIRMAL Last Admin: 12/18/23 11:33 Dose: 3 ml Albuterol/Ipratropium (Ipratropium-Albuterol 3 Ml Neb) 3 ml INHALATION RT-Q2H PRN PRN Reason: Shortness Of Breath Or Wheezing Last Admin: 12/03/23 03:45 Dose: 3 ml Chlorhexidine Gluconate (Chlorhexidine Gluconate 15 Ml Cup) 15 ml MUCOUS MEM BID NIRMAL Last Admin: 12/18/23 08:42 Dose: 15 ml Darbepoetin Scooby (Darbepoetin Scooby 40 Mcg/0.4 Ml Syringe) 40 mcg SQ Q7D NIRMAL Last Admin: 12/17/23 07:51 Dose: 40 mcg Dextrose/Water (Dextrose 50% Syringe 50 Ml) 25 ml IVP PER PROTOCOL PRN; Protocol PRN Reason: Hypoglycemia Dextrose/Water (Dextrose 50% Syringe 50 Ml) 50 ml IVP PER PROTOCOL PRN; Protocol PRN Reason: Hypoglycemia Hydromorphone HCl (Hydromorphone 0.5 Mg/0.5 Ml Syringe) 0.25 mg IVP Q4HR PRN PRN Reason: Pain Last Admin: 12/18/23 06:59 Dose: 0.25 mg Sodium Chloride (Saline 0.9%) 1,000 mls @ 20 mls/hr IV .Q24H NIRMAL Last Admin: 12/17/23 18:28 Dose: 20 mls/hr Dexmedetomidine HCl 400 mcg/ (IV Solution) 100 mls @ 4.925 mls/hr IV .[id number] NIRMAL; Protocol Last Titration: 12/18/23 12:00 Dose: 0.15 mcg/kg/hr, 3.694 mls/hr Piperacillin Sod/Tazobactam (Sod 3.375 gm/ Sodium Chloride) 100 mls @ 25 mls/hr IVPB Q12HR NIRMAL; Protocol Last Admin: 12/18/23 09:12 Dose: Not Given Daptomycin 600 mg/ Sodium (Chloride) 50 mls @ 100 mls/hr IVPB Q48H NIRMAL; Protocol Last Admin: 12/17/23 07:51 Dose: 100 mls/hr Norepinephrine Bitartrate 4 mg (/ Sodium Chloride) 254 mls @ 11.259 mls/hr IV .[id number] NIRMAL; Protocol Last Admin: 12/18/23 12:28 Dose: Not Given Potassium Chloride 20 meq/ IV (Solution) 100 mls @ 50 mls/hr IVPB ONCE ONE Stop: 12/18/23 14:59 Potassium Chloride 20 meq/ IV (Solution) 100 mls @ 50 mls/hr IVPB ONCE ONE Stop: 12/18/23 16:59 Insulin Aspart (Insulin Aspart (Novolog) 100 Unit/Ml Vial) 0 unit SQ 0000,0600,1200,1800 NIRMAL; Protocol Last Admin: 12/18/23 06:02 Dose: 2 unit Insulin Detemir (Insulin Detemir (Levemir) 100 Unit/Ml Syr) 24 unit SQ DAILY@0700 NIRMAL Last Admin: 12/18/23 06:02 Dose: 24 unit Levetiracetam (Levetiracetam Iv 500 Mg/5 Ml Vial) 500 mg IVP Q24HR NIRMAL Last Admin: 12/18/23 08:42 Dose: 500 mg Lorazepam (Lorazepam 2 Mg/Ml Inj) 1 mg IV Q4HR PRN PRN Reason: Anxiety Methylprednisolone Sodium Succinate (Methylprednisolone Sod Succi 40 Mg/Ml 1 Ml Vial) 20 mg IV DAILY@1800 NIRMAL Last Admin: 12/17/23 18:26 Dose: 20 mg Metoprolol Tartrate (Metoprolol Tartrate 5 Mg/5 Ml Vial) 2.5 mg IVP Q6HR PRN PRN Reason: Heart Rate - HIGH Last Admin: 11/27/23 08:25 Dose: 2.5 mg Midodrine (Midodrine 5 Mg Tab) 5 mg PO AC-TID [facility] Last Admin: 12/18/23 09:10 Dose: Not Given Miscellaneous Information (Magnesium Replacement Protocol 1 Each Misc) 1 each MISCELLANE DAILY PRN; Protocol PRN Reason: Per Protocol Naloxone HCl (Naloxone 0.4 Mg/Ml 1 Ml Vial) 0.2 mg IV Q2M PRN PRN Reason: Opioid Reversal Pantoprazole Sodium (Pantoprazole 40 Mg/10 Ml Vial) 40 mg IVP BID [facility] Last Admin: 12/18/23 08:42 Dose: 40 mg Petrolatum (Zinc Oxide Paste (Z-Guard) 1 Applic) 1 applic TOPICAL BID [facility]; Protocol Last Admin: 12/17/23 21:16 Dose: 1 applic Past medical history to include: GERD Social history: . No smoking. Physical examination: VITAL SIGNS: 98.3, 90, 20, 108 x 59, on the ventilator GENERAL: Eyes open. Right chest wall port. Congested sounding EYES: Pupils equal. Conjunctiva edouard l. HEENT: External appearance of nose and ears normal, tracheostomy-with secretions NECK: JVD unable to assess; masses not palpable. HEART: First and second heart sounds are normal; edema, present LUNGS: Respiratory rate increased, decreased breath sounds ABDOMEN: Soft, nontender, liver spleen not palpable, no masses palpable..jejunostomy tube-attached to tube feeding . RAYA drain. Incision with stitches with some midline breakdown with wound VAC PSYCH: Unable to assess NEURO: Not able to move limbs. Eyes open. Moves head INVESTIGATIONS, reviewed in the clinical context: CT chest abdomen without contrast [December 16] right upper lung cavitary lesion with air-fluid level in the posterior aspect and a larger cavitary lesion possibly within the lung parenchyma itself. Extending down towards the diaphragm additional airspace opacities in the left lung base. December 17: White count 12.5 hemoglobin 7.3 platelets 275 sodium 147 potassium 3.4 BUN 116 creatinine 2.68 December 16: White count 6.2 hemoglobin 7.1 platelets 237 sodium 143 potassium 3.7 BUN 109 creatinine 2.68 December 11: White count 7.9 hemoglobin 7.4 platelets 151 sodium 133 potassium 4 BUN 88 creatinine 2.96 December 10: White count 21.3 hemoglobin 7.4 platelets 129 potassium 4.2 BUN 111 creatinine 3.77 December 09: White count 26.1 hemoglobin 8.6 platelets 154 potassium 4.1 BUN 86 creatinine 3.31. Hemoglobin this morning was 6.6 prior to transfusion EEG-evidence of generalized cerebral dysfunction and sporadic intermittent higher amplitude sharply contoured waves mainly bifrontal. Showing cortical ir ritability. 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 Serosal fibrous adhesions. Viable margins. December 04: White count 10.2 hemoglobin 8 platelets 90 sodium 130 potassium 4 BUN 70 creatinine 2.89 Sputum culture: [November 25]: Citrobacter freundii. Pseudomonas aeruginosa November 20: White count 14.4 hemoglobin 8.8 platelets 229 potassium 4.1 BUN [address] scan abdomen [November 19] possible small bowel obstruction Stool: C. difficile negative November 15: WBC 13 hemoglobin 7.7 platelets 248 potassium 4.3 creatinine 0.87 2D echo: EF 55 to 60%. Kidneys bladder: Unremarkable November 13: White count 12 hemoglobin 6.9 platelets 276 potassium 4.4 creatinine 1.21 magnesium 1.8 iron 6 TIBC 365% saturation 1.64 transferrin 261 ferritin 34.6 B12 569 folate 4.4 November 11: Creatinine 0.86 EGD: Large amount of retained solid liquid food noted in the stomach. Large superficial gastric antral ulceration involving most of the antrum extending into the pylorus causing pyloric stenosis. Biopsies were obtained. Chest x-ray film personally reviewed by me-scattered infiltrates Assessment plan: -Aspiration pneumonitis bilateral from retained gastric contents mostly food and liquids, causing acute hypoxic respiratory failure: On presentation: Subsequent sputum culture November 25: Citrobacter freundii, Pseudomonas aeruginosa. December 13: Klebsiella oxytoca, Pseudomonas aeruginosa IV meropenem-was received originally. Now receiving IV daptomycin and IV Zosyn. Pulmonary following -Probable lung abscess larger 1 on the right side-patient cultures are growing Pseudomonas and Klebsiella oxytoca Continue IV Zosyn -Acute pulmonary edema and fluid overload from hypoalbuminemic state and fluids from IV.:: Has been getting Lasix and dialysis -Altered mentation. Possibly encephalopathy. Could be delirium. CT brain [December 06] nothing acute Neurology following EEG-evidence of generalized cerebral dysfunction and sporadic intermittent higher amplitude sharply contoured waves mainly bifrontal. Showing cortical irritability. Keppra was started on December 07 -Critical care poly- Pedro neuropathy PT OT -Gallstones, asymptomatic -Small l bowel perforation at site of jejunostomy tube tip with balloon..: Portion of small bowel resected. On November 24. New J-tube was placed.- drainage to gravity:-Now discontinued -Acute kidney injury. Possible ATN from hypotensive shock: Slow to respond Renal ultrasound unremarkable. Started on renal replacement therapy on November 28. Followed by nephrology -Nutrition Jejunostomy tube placed November [address] Ewing Getting TPN. Tube feeding at 50 cc an hour -Midline abdominal incision wound dehiscence Wound VAC placed -Acute recurrent atrial fibrillation-converted to sinus rhythm Received IV amiodarone. Cardiology following Lopressor -Acute hypoxic respiratory failure from aspiration pneumonia, status post ventilator assisted: Reintubated November 25. FiO2 35 PEEP of 5 Tracheostomy tube-by Dr. Zepeda on December 09 -Septic shock, recovered -Hypertension Patient started on Cleviprex-discontinued -Intermittent hypotension Intermittent use of Levophed. 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 Also anemia of blood draw. Iron deficiency anemia Received 3rd unit of blood . IV iron. -Severe thrombocytopenia. Would consider coagulation disorder secondary to in fection., In the setting of underlying lymphoma.: Recovered Hematology following. -Acute blood loss anemia, Has received 3 units of blood -Sacral stage II decub ulcer Dressing in place -GERD PPI -Acute diarrhea secondary to tube feeding.: Resolved C. difficile ruled out. -Large superficial gastric antral ulceration involving the gastric antrum extending into the pylorus with gastric outlet obstruction. 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 Port placed. For outpatient PET scan. -Full code Tube feeding at 50 cc an hour. On Precedex. Antibiotics. Hemodialysis today. Past Medical History Past Medical History: GERD/Reflux History of Any Multi-Drug Resistant Organisms: None Reported Past Surgical History: Heart Catheterization Additional Past Surgical History / Comment(s): colonsocopy,spinal injection, Past Anesthesia/Blood Transfusion Reactions: No Reported Reaction Past Psychological History: No Psychological Hx Reported Smoking Status: Never smoker Past Alcohol Use History: None Reported Past Drug Use History: None Reported
[2023-12-18] MEDS: POTASSIUM CHLORIDE 20 MEQ in WATER FOR INJECTION 1 100ML.BAG IVPB ONE ×2 (13:23→15:45)
--- NOTE | 2023-12-18 13:36 | P.PN ---
Subjective Progress Note Date: 12/18/23 CHIEF COMPLAINT: Abdominal pain HISTORY OF PRESENT ILLNESS: Patient remains in the ICU on mechanical vent ilation. He is getting hemodialysis. He had wound VAC placed on the area of dehiscence at the midline incision. RAYA drain with serous output. Tube feeds remain at goal at 50 mL/h. Patient had low-grade temps of 100.4 last night. WBC is down from 16.2-12.5 Hgb 7.3 platelets 275 potassium 3.4 and being replaced. RAYA drain with a total of 170 mL output PHYSICAL EXAM: VITAL SIGNS: Reviewed. GENERAL: no acute distress. HEENT: Tracheostomy site clean dry and intact ABDOMEN: Soft. Nondistended. Midline incision with wound VAC in place and intact. J-tube in place with minimal bilious drainage noted on dressing. RAYA drain in place with serous output ASSESSMENT: 1. 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 Status post J-tube placement and revision for small bowel obstruction 2. Abdominal wound dehiscence status post wound VAC placement PLAN: -Wound vac to be changed Saturday -Keep patient strict n.p.o. -Do not place medications down J-tube -Continue tube feeds -Continue ICU management -Continue supportive care Physician Buyer Renter note has been reviewed by physician. Signing provider agrees with the documented findings, assessment, and plan of care. Objective - Vital Signs Vital signs: Vital Signs Temp 99.4 F 12/18/23 08:30 Pulse 88 12/18/23 12:00 Resp 25 H 12/18/23 12:00 BP 89/57 12/18/23 12:00 Pulse Ox 97 12/18/23 12:00 FiO2 30 12/18/23 12:00 Intake & Output 12/17/23 12/18/23 12/18/23 18:59 06:59 18:59 Intake Total 1062 1081.673 531.571 Output Total 890 1195 360 Balance 172 -113.327 171.571 Weight 99.3 kg 99.3 kg Intake: IV 282 220 60 0.9 KVO 120 120 60 DAPTOmycin 600 mg In 50 Sodium Chloride 0.9% 50 ml @ 100 mls/hr IVPB Q48H [facility] Rx#:[id number] Normal Saline Pressure 12 Saline Piperacillin-Tazobactam 3 100 .375 gm In Sodium Chloride 0.9% 100 ml @ 25 mls/hr IVPB Q12HR [facility] Rx #:[id number] Piperacillin-Tazobactam 3 100 .375 gm In Sodium Chloride 0.9% 100 ml @ 25 mls/hr IVPB Q8HR [facility] Rx# :[id number] Intake, IV Titration 81.673 81.571 Amount Dexmedetomidine/0.9% NaCl 81.673 81.571 (Pmx) 400 mcg In Empty Bag 1 bag @ 0.2 MCG/KG/HR 4.925 mls/hr IV .[id number] [facility] Rx#:[id number] Tube Feeding 600 600 300 Other 180 180 90 Output: Drainage 170 Right Abdomen 170 Urine 720 1195 360 Other: Voiding Method Indwelling Catheter Indwelling Catheter Indwelling Catheter # Bowel Movements 1 ABP, PAP, CO, CI - Last Documented Arterial Blood Pressure 139/59 - Labs CBC & Chem 7: 12/18/23 04:03 12/18/23 04:03 Labs: Abnormal Lab Results - Last 24 Hours (Table) 12/17/23 12/17/23 12/18/23 Range/Units 12:58 18:36 00:21 WBC (3.8-10.6) k/uL RBC (4.30-5.90) m/uL Hgb (13.0-17.5) gm/dL Hct (39.0-53.0) % MCHC (31.0-37.0) g/dL RDW (11.5-15.5) % Neutrophils # (1.3-7.7) k/uL ABG pH (7.35-7.45) ABG pCO2 (35-45) mmHg ABG Total CO2 (19-24) mmol/L ABG O2 Saturation (94-97) % Hemoglobin (13.0-17.5) gm/dL Sodium (137-145) mmol/L Potassium (3.5-5.1) mmol/L Chloride (98-107) mmol/L BUN (9-20) mg/dL Creatinine (0.66-1.25) mg/dL Glucose (74-99) mg/dL POC Glucose (mg/dL) 156 H 120 H 145 H (70-110) mg/dL Calcium (8.4-10.2) mg/dL Phosphorus (2.5-4.5) mg/dL 12/18/23 12/18/23 12/18/23 Range/Units 04:03 04:03 04:03 WBC 12.5 H (3.8-10.6) k/uL RBC 2.68 L (4.30-5.90) m/uL Hgb 7.3 L (13.0-17.5) gm/dL Hct 23.8 L (39.0-53.0) % MCHC 30.8 L (31.0-37.0) g/dL RDW 19.2 H (11.5-15.5) % Neutrophils # 10.2 H (1.3-7.7) k/uL ABG pH (7.35-7.45) ABG pCO2 (35-45) mmHg ABG Total CO2 (19-24) mmol/L ABG O2 Saturation (94-97) % Hemoglobin (13.0-17.5) gm/dL Sodium 147 H (137-145) mmol/L Potassium 3.4 L (3.5-5.1) mmol/L Chloride 113 H (98-107) mmol/L BUN 116 H* (9-20) mg/dL Creatinine 2.68 H (0.66-1.25) mg/dL Glucose 167 H (74-99) mg/dL POC Glucose (mg/dL) (70-110) mg/dL Calcium 7.2 L (8.4-10.2) mg/dL Phosphorus 4.7 H (2.5-4.5) mg/dL 12/18/23 12/18/23 12/18/23 Range/Units 04:48 05:56 11:44 WBC (3.8-10.6) k/uL RBC (4.30-5.90) m/uL Hgb (13.0-17.5) gm/dL Hct (39.0-53.0) % MCHC (31.0-37.0) g/dL RDW (11.5-15.5) % Neutrophils # (1.3-7.7) k/uL ABG pH 7.56 H* (7.35-7.45) ABG pCO2 27 L (35-45) mmHg ABG Total CO2 25 H (19-24) mmol/L ABG O2 Saturation 98.2 H (94-97) % Hemoglobin 7.2 L (13.0-17.5) gm/dL Sodium (137-145) mmol/L Potassium (3.5-5.1) mmol/L Chloride (98-107) mmol/L BUN (9-20) mg/dL Creatinine (0.66-1.25) mg/dL Glucose (74-99) mg/dL POC Glucose (mg/dL) 184 H 127 H (70-110) mg/dL Calcium (8.4-10.2) mg/dL Phosphorus (2.5-4.5) mg/dL Microbiology - Last 24 Hours (Table) 12/14/23 09:46 Blood Culture Gram Stain - Final Blood Blood Culture - Final Staphylococcus epidermidis Molecular ID 12/14/23 09:55 Anaerobic Culture - Preliminary Abdomen Bacteroides thetaiotaomicron 12/14/23 11:35 Gram Stain - Final Sputum Sputum Culture - Final Klebsiella oxytoca Pseudomonas aeruginosa Assessment and Plan Assessment: 73 yo male s/p exploratory laparotomy, small bowel resection jejunostomy tube placement wound dehiscence 12/16 -wound vac placed with white sponge/black sponge (4 pieces total) -continue tube feeds Time with Patient: Less than 30
[2023-12-18] MEDS: SCOPOLAMINE 1 MG/72 HR PATCH TRANSDERM SCH (14:24)
--- NOTE | 2023-12-18 14:31 | P.PN ---
Subjective Progress Note Date: 12/18/23 On today's evaluation of 12/16/2023, the patient is being seen for a follow-up. The patient has been off propofol since 12/11/2023. He is requiring on and off Ativan and Dilaudid for pain control. He is not following any commands. He opens his eyes occasionally and he moves his head and thrashes. I have recommended starting him on Precedex to control his restlessness and agitation. Meanwhile, the patient is on assist-control mode of mechanical ventilation at rate of 20, tidal volume of 500, FiO2 of 30% with a PEEP of 5. Blood gas showed a pH of 7.51 with a pCO2 of 31 and pO2 of 73. Chest x-ray showing a tracheostomy tube being in the upper trachea. It is projecting over the trachea. The patient has a port in his right IJ there is also an right apical cavity that is formed over the past 1 week. There is residual consolidation and small bilateral pleural effusions. Noted the patient was given CPAP trials over the past 24 to 48 hours and he has failed due to increased tachypnea. Sharon nwhile, he is sodium levels at 141 with a BUN of 131 and creatinine of 3.4. Serum bicarb is at 27. WBC count is at 18.9 with a hemoglobin 7.1 and a platelet count of 238. Urine output is in order of 70 cc an hour. He has adequate output from his ileostomy. The abdominal wound is dehisced and there is evidence of an old infection with some purulent secretion from the wound surface in its midportion. The patient is receiving J-tube feeding and is receiving Nepro at rate of 50 cc an hour in addition to 50 cc of fluid flush on an hourly basis to prevent any clogging. He was spiking temperature over the past 24 hours. Tmax was 1101.1 F and the patient was started on a combination of Zosyn and vancomycin pending further cultures. Wound cultures have been obtained. Blood cultures also been obtained. Hemodynamically stable on no pressors. Nephrology on the case regarding his renal failure. The patient will try to get hemodialysis today. 12/17/2023, the patient is being seen for a follow-up. This morning, the patient is awake and is following simple commands only. He is profoundly weak. He remains on Precedex which is currently running at 0.2 mcg/kg/h. The patient is on assist-control motorcycle mechanical ventilation with a tidal volume of 500, rate of 20, FiO2 of 30% and PEEP of 5. Blood gas showed a pH of 7.45 with a pCO2 of 24 and pO2 of 90. Chest x-ray shows extensive cavitation in the right upper lobe with a cavitating pneumonia/infiltrate. There is also lower lobe consolidation and effusions. The patient is having scant respiratory secretions. The culture was positive for Pseudomonas aeruginosa and the patient remains on IV Zosyn. Meanwhile, the patient is on normal saline at rate of 20 cc an hour. No pressors and the patient is hemodynamically stable. The patient is on Nepro 50 cc an hour. The patient is producing adequate amount of urine ou tput in the order of 60 cc an hour. Last hemodialysis session was done yesterday. This was successful without any hemodynamic alteration. The white cell count is 16.2 with a hemoglobin 7.1 and a platelet count of 277. The patient's electrolytes show a sodium level of 143, potassium of 3.7, chlorides 109 and a bicarb of 26 with a BUN of 109 and a creatinine of 2.6. Stool for C. difficile has been negative. This morning, the patient is afebrile. Family at the bedside. Abdominal wound is well-dressed and the RAYA drain is serosanguineous. On today's evaluation of 12/18/2023, the patient is being seen for a follow-up. Awake and communicating and following commands. Nevertheless, profoundly weak, unable to move all of his extremities at this point in time. He is able to communicate by facial expression and sometimes he tries to talk. He remains on low-dose Precedex which is running at 0.2 mcg/kg/h. He is currently on pressure control mode of mechanical ventilation with a pressure control of 20, rate of 20, FiO2 30% with a PEEP of 5. pH is 7.56 with a pCO2 of 27 and pO2 of 91. The patient is undergoing hemodialysis this morning. Urine output is adequate at 75 cc an hour and the patient is on Nepro at rate of 50 cc an hour. CAT scan of the abdomen and pelvis was done yesterday. CAT scan of the chest showed extensive cavitating pneumonia involving the right lung and there is a cavitating lesion in the posterior aspect of the right upper lobe with a fluid- filled cavity/abscess. There is also opacity throughout the right lung and the left lung and this is consistent with gram-negative/pseudomonal pneumonia. There is postsurgical changes anterior abdominal wall with subcutaneous gas. No organizing fluid or collection. Also, the patient has cholelithiasis. J-tube is in good location. The patient has a wound VAC covering the anterior abdominal wall. WBC count is at 12 with a hemoglobin 7.3 and a platelet count of 275. Sodium is 147, potassium 3.4, chloride 113 bicarb is 23 BUN is 116 with a creatinine of 2.6. Antibiotic coverage remains unchanged and the patient remains on IV Zosyn. He is on Adalat 40 mg subcu every 1 week. He is on Levemir insulin 24 units daily along with NovoLog sliding scale coverage. He remains on low-dose Solu-Medrol 20 mg IV every 24 hours. Objective - Vital Signs Vital signs: Vital Signs Temp 98.3 F 12/18/23 12:33 Pulse 89 12/18/23 14:00 Resp 29 H 12/18/23 14:00 BP 90/57 12/18/23 14:00 Pulse Ox 97 12/18/23 14:00 FiO2 30 12/18/23 12:00 Intake & Output 12/17/23 12/18/23 12/18/23 18:59 06:59 18:59 Intake Total 1062 8870.357 2022.251 Output Total 890 1195 1015 Balance 172 -113.327 316.251 Weight 99.3 kg 99.3 kg Intake: IV 282 220 80 0.9 KVO 120 120 80 DAPTOmycin 600 mg In 50 Sodium Chloride 0.9% 50 ml @ 100 mls/hr IVPB Q48H [facility] Rx#:[id number] Normal Saline Pressure 12 Saline Piperacillin-Tazobactam 3 100 .375 gm In Sodium Chloride 0.9% 100 ml @ 25 mls/hr IVPB Q12HR [facility] Rx #:[id number] Piperacillin-Tazobactam 3 100 .375 gm In Sodium Chloride 0.9% 100 ml @ 25 mls/hr IVPB Q8HR [facility] Rx# :[id number] Intake, IV Titration 81.673 186.251 Amount Dexmedetomidine/0.9% NaCl 81.673 86.251 (Pmx) 400 mcg In Empty Bag 1 bag @ 0.2 MCG/KG/HR 4.925 mls/hr IV .[id number] [facility] Rx#:[id number] Potassium Chloride 20 meq 100 In Water For Injection 1 100ml.bag @ 50 mls/hr IVPB ONCE ONE Rx#: [id number] Tube Feeding 600 600 410 Hemodialysis 500 Other 180 180 155 Output: Drainage 170 90 Right Abdomen 170 90 Urine 720 1195 425 Hemodialysis 22 Hemodialysis Net Amount 478 Other: Voiding Method Indwelling Catheter Indwelling Catheter Indwelling Catheter # Bowel Movements 1 ABP, PAP, CO, CI - Last Documented Arterial Blood Pressure 139/59 - Exam No acute distress, arousable on Precedex and following simple commands, comfortable, still on the mechanical ventilator. HEENT examination is grossly unremarkable. Mucous membranes are moist. No oral lesions.. The patient also has a tracheostomy tube in place and the patient has a #8 Shiley tracheostomy tube. Cardiac exam revealed the PMI to be normally situated and sized. The rhythm was regular and no extrasystoles were noted during several minutes of auscultation. The first and second heart sounds were normal and physiologic splitting of the second heart sound was noted. There were no murmurs, rubs, clicks, or gallops. The patient is in sinus tachycardia. Lungs reveal mild scattered rhonchi. No wheezes or crackles. Breath sounds equal. Diminished breath sound lung base bilaterally. Abdomen distended without bowel sounds. J-tube is noted. Mid abdominal wound is dehisced and it is opened in its midportion for approximately 2 cm with purulent drainage at the wound surface. Patient also has a RAYA drain in place and output is serosanguineous. Extremities are intact. No cyanosis clubbing trace edema lower extremities bilaterally Skin is without rash or lesion. The wound at the [facility] site is dry and the area has been sutured and the site is clean for now. Neurologic examination is brief but nonfocal. - Labs CBC & Chem 7: 12/18/23 04:03 12/18/23 04:03 Labs: Abnormal Lab Results - Last 24 Hours (Table) 12/17/23 12/18/23 12/18/23 Range/Units 18:36 00:21 04:03 WBC 12.5 H (3.8-10.6) k/uL RBC 2.68 L (4.30-5.90) m/uL Hgb 7.3 L (13.0-17.5) gm/dL Hct 23.8 L (39.0-53.0) % MCHC 30.8 L (31.0-37.0) g/dL RDW 19.2 H (11.5-15.5) % Neutrophils # 10.2 H (1.3-7.7) k/uL ABG pH (7.35-7.45) ABG pCO2 (35-45) mmHg ABG Total CO2 (19-24) mmol/L ABG O2 Saturation (94-97) % Hemoglobin (13.0-17.5) gm/dL Sodium (137-145) mmol/L Potassium (3.5-5.1) mmol/L Chloride (98-107) mmol/L BUN (9-20) mg/dL Creatinine (0.66-1.25) mg/dL Glucose (74-99) mg/dL POC Glucose (mg/dL) 120 H 145 H (70-110) mg/dL Calcium (8.4-10.2) mg/dL Phosphorus (2.5-4.5) mg/dL 12/18/23 12/18/23 12/18/23 Range/Units 04:03 04:03 04:48 WBC (3.8-10.6) k/uL RBC (4.30-5.90) m/uL Hgb (13.0-17.5) gm/dL Hct (39.0-53.0) % MCHC (31.0-37.0) g/dL RDW (11.5-15.5) % Neutrophils # (1.3-7.7) k/uL ABG pH 7.56 H* (7.35-7.45) ABG pCO2 27 L (35-45) mmHg ABG Total CO2 25 H (19-24) mmol/L ABG O2 Saturation 98.2 H (94-97) % Hemoglobin 7.2 L (13.0-17.5) gm/dL Sodium 147 H (137-145) mmol/L Potassium 3.4 L (3.5-5.1) mmol/L Chloride 113 H (98-107) mmol/L BUN 116 H* (9-20) mg/dL Creatinine 2.68 H (0.66-1.25) mg/dL Glucose 167 H (74-99) mg/dL POC Glucose (mg/dL) (70-110) mg/dL Calcium 7.2 L (8.4-10.2) mg/dL Phosphorus 4.7 H (2.5-4.5) mg/dL 12/18/23 12/18/23 Range/Units 05:56 11:44 WBC (3.8-10.6) k/uL RBC (4.30-5.90) m/uL Hgb (13.0-17.5) gm/dL Hct (39.0-53.0) % MCHC (31.0-37.0) g/dL RDW (11.5-15.5) % Neutrophils # (1.3-7.7) k/uL ABG pH (7.35-7.45) ABG pCO2 (35-45) mmHg ABG Total CO2 (19-24) mmol/L ABG O2 Saturation (94-97) % Hemoglobin (13.0-17.5) gm/dL Sodium (137-145) mmol/L Potassium (3.5-5.1) mmol/L Chloride (98-107) mmol/L BUN (9-20) mg/dL Creatinine (0.66-1.25) mg/dL Glucose (74-99) mg/dL POC Glucose (mg/dL) 184 H 127 H (70-110) mg/dL Calcium (8.4-10.2) mg/dL Phosphorus (2.5-4.5) mg/dL Microbiology - Last 24 Hours (Table) 12/14/23 09:55 Anaerobic Culture - Final Abdomen Bacteroides thetaiotaomicron 12/14/23 09:46 Blood Culture Gram Stain - Final Blood Blood Culture - Final Staphylococcus epidermidis Molecular ID 12/14/23 11:35 Gram Stain - Final Sputum Sputum Culture - Final Klebsiella oxytoca Pseudomonas aeruginosa Assessment and Plan Plan: Acute hypoxemic respiratory failure with failure to wean from mechanical ventilation, S/P tracheostomy on December 10, 2023. The patient has bilateral pneumonia with a cavitary infiltrate in the right upper lobe, secondary to Pseudomonas and the patient is currently on IV Zosyn. Patient is afebrile hemodynamically stable this morning. CAT scan of the chest done on 12/17/2023 was reviewed and the patient has a cavitating cyst/abscess in the posterior aspect of the right upper lobe in addition to patchy opacities bilaterally right more than left consistent with pneumonia,/gram-negative pneumonia attributed to Pseudomonas and Klebsiella. Hospital-acquired right lung pseudomonal/Klebsiella pneumonia. Patient is currently on IV Zosyn. 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 Small bowel perforation with abdominal contamination. The patient is status post expiratory laparotomy and small bowel resection and insertion of another jejunostomy tube. The patient jejunostomy is functional and the patient is stooling. However, the abdominal wound is dehisced and is infected. RAYA drain output is serosanguineous. A wound VAC was applied to the anterior abdominal wall. Peritonitis secondary to above Septic shock secondary to above, the patient is currently off pressors Atrial fibrillation with rapid medical response, currently back into normal sinus rhythm . Acute kidney injury, currently hemodialysis dependent and the patient is a dialysis cath in his left femoral vein. Hemodialysis was done on 12/18/2023 History of acute aspiration during upper endoscopy most likely secondary to gastric outlet obstruction secondary to non-Hodgkin's lymphoma. weight loss most likely secondary non-Hodgkin's lymphoma involving the stomach. Anemia of chronic disease, multifactorial Encephalopathy, multifactorial, could be drug related/sepsis related, essen tially a component of metabolic encephalopathy, improving and the patient is currently on low-dose Precedex and the patient is communicating and following simple commands Profound weakness in all 4 extremities and the patient is unable to move at this point in time. Motor function 0 out of 5 in all 4 extremities. Positive cough. Positive gag. Plan Continue ventilator support. Dropped to pressure control down to 15 cm of water as the patient has a component of respiratory alkalosis. Respiratory rate of 16. Continue IV Zosyn Blood cultures and wound cultures Continue enteral feeding for nutritional support Hemodialysis was done yesterday Continue Solu-Medrol to 20 mg every 12 hours Monitor fever pattern General Surgery is on the case regarding abdominal wound Enteral feeding for nutritional support with Nepro PT for passive range of motion Condition remains extremely critical with poor prognosis based on the above Will continue to follow this patient along with the rest of the consultants. Condition is critical over the poor outcome based on the above. Evaluation was done more than 30 minutes. Time with Patient: Greater than 30
[2023-12-18 18:26] LABS: Glucose,Whole Blood 144 mg/dL (70-110)
[2023-12-18] MEDS: POTASSIUM CHLORIDE 10 MEQ in WATER FOR INJECTION 1 100ML.BAG IVPB SCH (22:11)
[2023-12-18 23:33] LABS: Glucose,Whole Blood 223 mg/dL (70-110)
[2023-12-19 05:20] LABS: ABG Base Excess 0.6 mmol/L; ABG HCO3 24 mmol/L (21-25); ABG Oxygen Saturation 97.7 % (94-97); ABG PCO2 32 mmHg (35-45); ABG PH 7.49 (7.35-7.45); ABG PO2 91 mmHg (83-108); ABG TCO2 25 mmol/L (19-24); Allen Test Performed? Yes
[2023-12-19 05:36] LABS: Glucose,Whole Blood 214 mg/dL (70-110)
[2023-12-19 06:27] LABS: African American GFR (CKD) 39 (>60 ml/min/1.73 sqM); Anion Gap 8 mmol/L; Blood Urea Nitrogen 80 mg/dL (9-20); Calcium 7.1 mg/dL (8.4-10.2); Carbon Dioxide 21 mmol/L (22-30); Chloride 111 mmol/L (98-107); Glucose 193 mg/dL (74-99); Non-African American GFR(CKD) 34 (>60 ml/min/1.73 sqM); Potassium 4.1 mmol/L (3.5-5.1); Sodium 140 mmol/L (137-145)
[2023-12-19 06:31] LABS: Anisocytosis Slight; Basophils # (A) 0.1 k/uL (0-0.2); Basophils % (A) 0 %; Eosinophils % (A) 0 %; HCT 22.7 % (39.0-53.0); HGB 7.2 gm/dL (13.0-17.5); Hypochromasia Slight; Lymphocytes # (A) 1.6 k/uL (1.0-4.8); Lymphocytes % (A) 11 %; MCH 28.1 pg (25.0-35.0); MCHC 31.9 g/dL (31.0-37.0); Mean Platelet Volume 9.2; Monocytes # (A) 0.4 k/uL (0-1.0); Monocytes % (A) 3 %; Neutrophils # (A) 12.6 k/uL (1.3-7.7); Neutrophils % (A) 85 %; Platelet Count 247 k/uL (150-450); RBC 2.58 m/uL (4.30-5.90); RDW 18.9 % (11.5-15.5); WBC 14.8 k/uL (3.8-10.6)
--- NOTE | 2023-12-19 07:49 | XR ---
EXAMINATION TYPE: XR chest 1V portable DATE OF EXAM: 12/19/2023 5:11 AM CLINICAL INDICATION: Male, 73 years old with history of mechanical ventilation; [facility] COMPARISON: Chest radiograph from one day prior. TECHNIQUE: XR chest 1V portable Frontal view of the chest. FINDINGS: Lungs/Pleura: Right apical cavitary lesion unchanged from prior. No evidence of focal conso lidation or pneumothorax. Blunting of the costophrenic angles is present. Pulmonary vascularity: Unremarkable. Heart/mediastinum: Cardiomediastinal silhouette is unremarkable. Musculoskeletal: No acute osseous pathology. Other findings: None Lines/Tubes: Tracheostomy cannula tip projecting over the trachea. [id number] projecting over the right hemithorax with distal tip at the cavoatrial junction. Left-sided PICC with distal tip at the superior vena cava/brachiocephalic confluence. IMPRESSION: Stable exam with mild right apical cavitary lesion and consolidation changes as seen on CT. [facility], , 12/19/2023 7:47 AM
--- NOTE | 2023-12-19 10:19 | P.CONS ---
History of Present Illness - Reason for Consult Consult date: 12/19/23 wound care - History of Present Illness This is a 73-year-old patient being seen in ICU for a abdominal dehiscence. Patient has a negative pressure wound VAC in place that is being managed by surgery. Wound VAC is scheduled to be changed on Saturday. Patient is tolerating wound VAC with no difficulties. Review Of Systems: Constitutional: No fever, no chills, no night sweats. No weight change. No weakness, fatigue or lethargy. No daytime sleepiness. Integumentary:reports wounds, no lesions. No rash or pruritus. No unusual bruising. No change in hair or nails. Physical exam: General Appearance: Alert, cooperative, no distress, appears stated age. Skin: See HPI all other Skin color, texture, tugor normal, no rashes or lesions. Neurologic: Alert oriented x3 Assessment: 1. Nonhealing ulceration with muscle involvement other site 2. Surgical wound dehiscence Plan: 1. Continue with negative pressure wound VAC. Change Saturday. Patient may benefit from advanced wound care and wound care setting. Will be happy to see him upon discharge. Thank you for the consultation any questions please contact the wound care center DNP note has been reviewed and discussed with Dr. Altamirano and the impression and plan of care has been directed as dictated. Past Medical History Past Medical History: GERD/Reflux History of Any Multi-Drug Resistant Organisms: None Reported Past Surgical History: Heart Catheterization Additional Past Surgical History / Comment(s): colonsocopy,spinal injection, Past Anesthesia/Blood Transfusion Reactions: No Reported Reaction Past Psychological History: No Psychological Hx Reported Smoking Status: Never smoker Past Alcohol Use History: None Reported Past Drug Use History: None Reported - Past Family History Father Family Medical History: Cancer Medications and Allergies Home Medications Medication Instructions Recorded Confirmed Type Fluticasone Nasal Delevan [Flonase 2 spray EA NOSTRIL DAILY 11/11/23 11/12/23 History Nasal Delevan] Pantoprazole Sodium 40 mg PO BID 11/11/23 11/12/23 History Allergies Allergy/AdvReac Type Severity Reaction Status Date / Time No Known Allergies Allergy Verified 11/12/23 09:32 Physical Exam Vitals: Vital Signs Temp Pulse Pulse Resp BP BP Pulse Ox 12/19/23 09:07 12/19/23 07:47 84 12/19/23 07:38 85 12/19/23 07:33 12/19/23 07:00 85 19 94/57 95 12/19/23 06:00 83 24 109/72 95 12/19/23 05:10 12/19/23 05:00 89 29 H 96/61 97 12/19/23 04:00 97.8 F 84 20 96/59 97 12/19/23 03:00 85 32 H 98/61 95 12/19/23 02:00 89 25 H 87/56 95 12/19/23 01:00 87 27 H 93/58 95 12/19/23 00:00 98.5 F 88 22 97/70 94 L 12/18/23 23:41 12/18/23 23:07 12/18/23 23:06 92 18 96 12/18/23 23:00 91 24 92/60 96 12/18/23 22:00 91 19 94/60 96 12/18/23 21:00 93 20 103/63 95 12/18/23 20:00 98.1 F 93 31 H 94/64 96 12/18/23 19:56 92 12/18/23 19:40 98 12/18/23 19:37 12/18/23 19:00 98 26 H 87/57 96 12/18/23 18:30 98 27 H 100/64 96 12/18/23 18:00 98 29 H 96/63 95 12/18/23 17:30 98 27 H 94/61 95 12/18/23 17:00 98 24 94/61 95 12/18/23 16:30 94 24 89/58 93 L 12/18/23 16:00 99.1 F 99 20 105/69 93 L 12/18/23 15:41 98 12/18/23 15:32 93 12/18/23 15:30 93 22 105/66 95 12/18/23 15:27 12/18/23 15:00 92 23 97/61 95 12/18/23 14:30 93 29 H 98/63 95 12/18/23 14:00 89 29 H 90/57 97 12/18/23 13:30 84 21 85/55 94 L 12/18/23 13:00 87 24 86/55 97 12/18/23 12:33 98.3 F 90 20 108/59 12/18/23 12:30 86 25 H 89/58 96 12/18/23 12:00 88 25 H 89/57 97 12/18/23 11:44 92 12/18/23 11:35 90 12/18/23 11:30 87 23 90/62 98 12/18/23 11:29 12/18/23 11:00 93 16 94/63 97 12/18/23 10:30 92 17 95/65 97 FiO2 12/19/23 09:07 30 12/19/23 07:47 12/19/23 07:38 12/19/23 07:33 30 12/19/23 07:00 12/19/23 06:00 12/19/23 05:10 30 12/19/23 05:00 12/19/23 04:00 30 12/19/23 03:00 12/19/23 02:00 12/19/23 01:00 12/19/23 00:00 30 12/18/23 23:41 30 12/18/23 23:07 30 12/18/23 23:06 12/18/23 23:00 12/18/23 22:00 12/18/23 21:00 12/18/23 20:00 30 12/18/23 19:56 12/18/23 19:40 12/18/23 19:37 30 12/18/23 19:00 12/18/23 18:30 12/18/23 18:00 12/18/23 17:30 12/18/23 17:00 12/18/23 16:30 12/18/23 16:00 30 12/18/23 15:41 12/18/23 15:32 12/18/23 15:30 12/18/23 15:27 30 12/18/23 15:00 12/18/23 14:30 12/18/23 14:00 12/18/23 13:30 12/18/23 13:00 12/18/23 12:33 12/18/23 12:30 12/18/23 12:00 30 12/18/23 11:44 12/18/23 11:35 12/18/23 11:30 12/18/23 11:29 30 12/18/23 11:00 12/18/23 10:30 Intake and Output 12/18/23 12/19/23 12/19/23 22:59 06:59 14:59 Intake Total 1989.584 9093 Output Total 370 590 Balance 693.970 490 Intake: IV 80 90 0.9 KVO 80 90 Intake, IV Titration 103.970 Amount Dexmedetomidine/0.9% NaCl 3.970 (Pmx) 400 mcg In Empty Bag 1 bag @ 0.2 MCG/KG/HR 4.925 mls/hr IV .[id number] [facility] Rx#:[id number] Potassium Chloride 20 meq 100 In Water For Injection 1 100ml.bag @ 50 mls/hr IVPB ONCE ONE Rx#: [id number] Tube Feeding 480 540 Other 400 450 Output: Drainage 45 125 Right Abdomen 45 125 Urine 325 465 Other: Voiding Method Indwelling Catheter Indwelling Catheter # Bowel Movements 1 Weight 98 kg Results CBC & Chem 7: 12/19/23 05:34 12/19/23 05:34 Labs: Abnormal Lab Results - Last 24 Hours (Table) 12/18/23 12/18/23 12/18/23 Range/Units 04:03 11:44 18:25 WBC (3.8-10.6) k/uL RBC (4.30-5.90) m/uL Hgb (13.0-17.5) gm/dL Hct (39.0-53.0) % RDW (11.5-15.5) % Neutrophils # (1.3-7.7) k/uL ABG pH (7.35-7.45) ABG pCO2 (35-45) mmHg ABG Total CO2 (19-24) mmol/L ABG O2 Saturation (94-97) % Hemoglobin (13.0-17.5) gm/dL Chloride (98-107) mmol/L Carbon Dioxide (22-30) mmol/L BUN (9-20) mg/dL Creatinine (0.66-1.25) mg/dL Glucose (74-99) mg/dL POC Glucose (mg/dL) 127 H 144 H (70-110) mg/dL Calcium (8.4-10.2) mg/dL Phosphorus 4.7 H (2.5-4.5) mg/dL 12/18/23 12/18/23 12/19/23 Range/Units 23:32 23:46 05:34 WBC 14.8 H (3.8-10.6) k/uL RBC 2.58 L (4.30-5.90) m/uL Hgb 7.2 L (13.0-17.5) gm/dL Hct 22.7 L (39.0-53.0) % RDW 18.9 H (11.5-15.5) % Neutrophils # 12.6 H (1.3-7.7) k/uL ABG pH 7.49 H (7.35-7.45) ABG pCO2 32 L (35-45) mmHg ABG Total CO2 25 H (19-24) mmol/L ABG O2 Saturation 97.7 H (94-97) % Hemoglobin 6.9 L* (13.0-17.5) gm/dL Chloride (98-107) mmol/L Carbon Dioxide (22-30) mmol/L BUN (9-20) mg/dL Creatinine (0.66-1.25) mg/dL Glucose (74-99) mg/dL POC Glucose (mg/dL) 223 H (70-110) mg/dL Calcium (8.4-10.2) mg/dL Phosphorus (2.5-4.5) mg/dL 12/19/23 12/19/23 Range/Units 05:34 05:35 WBC (3.8-10.6) k/uL RBC (4.30-5.90) m/uL Hgb (13.0-17.5) gm/dL Hct (39.0-53.0) % RDW (11.5-15.5) % Neutrophils # (1.3-7.7) k/uL ABG pH (7.35-7.45) ABG pCO2 (35-45) mmHg ABG Total CO2 (19-24) mmol/L ABG O2 Saturation (94-97) % Hemoglobin (13.0-17.5) gm/dL Chloride 111 H (98-107) mmol/L Carbon Dioxide 21 L (22-30) mmol/L BUN 80 H (9-20) mg/dL Creatinine 1.93 H (0.66-1.25) mg/dL Glucose 193 H (74-99) mg/dL POC Glucose (mg/dL) 214 H (70-110) mg/dL Calcium 7.1 L (8.4-10.2) mg/dL Phosphorus (2.5-4.5) mg/dL Microbiology - Last 24 Hours (Table) 12/14/23 09:55 Anaerobic Culture - Final Abdomen Bacteroides thetaiotaomicron 12/14/23 09:46 Blood Culture Gram Stain - Final Blood Blood Culture - Final Staphylococcus epidermidis Molecular ID Assessment and Plan (1) Surgical wound dehiscence Current Visit: Yes Status: Acute Code(s): T81.31XA - DISRUPTION OF EXTERNAL OPERATION (SURGICAL) WOUND, NEC, INIT SNOMED Code(s): 96854055 (2) Non-pressure chronic ulcer of skin of other sites with muscle involvement without evidence of necrosis Current Visit: Yes Status: Acute Code(s): L98.495 - NON-PRS CHR ULC SKIN/ OTH SITE WITH MSL INVL W/O EVD OF NECR SNOMED Code(s): 19796763
--- NOTE | 2023-12-19 10:44 | P.PN ---
Subjective Progress Note Date: 12/18/23 12/18/2023: Patient was seen for a follow-up. Patient is much more alert and awake. He is off sedation. Please refer to examination below. 12/17/2023: Patient was seen for a follow-up. Patient's was also present, who believes that patient is doing better. Patient is nodding appropriately. He is still very weak in the arms and legs, not able to follow directions other arce. Patient nods "no" for headache. Patient has tracheostomy. 12/16/2023: Patient was seen for a follow-up. Patient is laying in the bed, severely encephalopathic. Patient now has tracheostomy. Patient currently on Precedex 0.2 mcg/kg/h. Also on vancomycin. Patient getting hemodialysis as of now. 12/08/2023: Patient was seen for a follow-up. Patient's was also present. Per nursing report, with sedation holiday, patient opens eyes, but does not follow commands, does not track. Does not even response to yes/no questions. Patient does move right arm sometimes. Patient starts desynchronized ventilation therefore has to be put back on Precedex. Patient currently on Precedex 0.6 g per program per hour. Objective - Vital Signs Vital signs: Vital Signs Temp 98.3 F 12/18/23 12:33 Pulse 89 12/18/23 14:00 Resp 29 H 12/18/23 14:00 BP 90/57 12/18/23 14:00 Pulse Ox 97 12/18/23 14:00 FiO2 30 12/18/23 12:00 Intake & Output 12/17/23 12/18/23 12/18/23 18:59 06:59 18:59 Intake Total 1062 3951.317 2275.251 Output Total 890 1195 1015 Balance 172 -113.327 316.251 Weight 99.3 kg 99.3 kg Intake: IV 282 220 80 0.9 KVO 120 120 80 DAPTOmycin 600 mg In 50 Sodium Chloride 0.9% 50 ml @ 100 mls/hr IVPB Q48H [facility] Rx#:[id number] Normal Saline Pressure 12 Saline Piperacillin-Tazobactam 3 100 .375 gm In Sodium Chloride 0.9% 100 ml @ 25 mls/hr IVPB Q12HR [facility] Rx #:[id number] Piperacillin-Tazobactam 3 100 .375 gm In Sodium Chloride 0.9% 100 ml @ 25 mls/hr IVPB Q8HR [facility] Rx# :[id number] Intake, IV Titration 81.673 186.251 Amount Dexmedetomidine/0.9% NaCl 81.673 86.251 (Pmx) 400 mcg In Empty Bag 1 bag @ 0.2 MCG/KG/HR 4.925 mls/hr IV .[id number] [facility] Rx#:[id number] Potassium Chloride 20 meq 100 In Water For Injection 1 100ml.bag @ 50 mls/hr IVPB ONCE ONE Rx#: [id number] Tube Feeding 600 600 410 Hemodialysis 500 Other 180 180 155 Output: Drainage 170 90 Right Abdomen 170 90 Urine 720 1195 425 Hemodialysis 22 Hemodialysis Net Amount 478 Other: Voiding Method Indwelling Catheter Indwelling Catheter Indwelling Catheter # Bowel Movements 1 ABP, PAP, CO, CI - Last Documented Arterial Blood Pressure 139/59 - Exam On examination patient is laying in the bed. Patient is intubated, with tracheostomy. Patient is off sedation. Patient is still encephalopathic, but more awake than yesterday. He sometimes nods appropriately. Pupils are equal, round and reacting. Oculocephalics are inhibited. Corneals are present. Patient is breathing over the ventilator. Patient sometimes move his right arm, also moves his head [id number]. Patient very weak. Patient has some gross movement of the hip on command. Not able to move his fingers or the feet. Reflexes are absent at brachioradialis, knees and ankles bilaterally, whereas trace to 1 at the right biceps, and trace at the left biceps. Plantars are flat. Patient has lot of muscle wasting apparent because of the flabby skin. - Labs CBC & Chem 7: 12/19/23 05:34 12/19/23 05:34 Labs: Abnormal Lab Results - Last 24 Hours (Table) 12/17/23 12/18/23 12/18/23 Range/Units 18:36 00:21 04:03 WBC 12.5 H (3.8-10.6) k/uL RBC 2.68 L (4.30-5.90) m/uL Hgb 7.3 L (13.0-17.5) gm/dL Hct 23.8 L (39.0-53.0) % MCHC 30.8 L (31.0-37.0) g/dL RDW 19.2 H (11.5-15.5) % Neutrophils # 10.2 H (1.3-7.7) k/uL ABG pH (7.35-7.45) ABG pCO2 (35-45) mmHg ABG Total CO2 (19-24) mmol/L ABG O2 Saturation (94-97) % Hemoglobin (13.0-17.5) gm/dL Sodium (137-145) mmol/L Potassium (3.5-5.1) mmol/L Chloride (98-107) mmol/L BUN (9-20) mg/dL Creatinine (0.66-1.25) mg/dL Glucose (74-99) mg/dL POC Glucose (mg/dL) 120 H 145 H (70-110) mg/dL Calcium (8.4-10.2) mg/dL Phosphorus (2.5-4.5) mg/dL 12/18/23 12/18/23 12/18/23 Range/Units 04:03 04:03 04:48 WBC (3.8-10.6) k/uL RBC (4.30-5.90) m/uL Hgb (13.0-17.5) gm/dL Hct (39.0-53.0) % MCHC (31.0-37.0) g/dL RDW (11.5-15.5) % Neutrophils # (1.3-7.7) k/uL ABG pH 7.56 H* (7.35-7.45) ABG pCO2 27 L (35-45) mmHg ABG Total CO2 25 H (19-24) mmol/L ABG O2 Saturation 98.2 H (94-97) % Hemoglobin 7.2 L (13.0-17.5) gm/dL Sodium 147 H (137-145) mmol/L Potassium 3.4 L (3.5-5.1) mmol/L Chloride 113 H (98-107) mmol/L BUN 116 H* (9-20) mg/dL Creatinine 2.68 H (0.66-1.25) mg/dL Glucose 167 H (74-99) mg/dL POC Glucose (mg/dL) (70-110) mg/dL Calcium 7.2 L (8.4-10.2) mg/dL Phosphorus 4.7 H (2.5-4.5) mg/dL 12/18/23 12/18/23 Range/Units 05:56 11:44 WBC (3.8-10.6) k/uL RBC (4.30-5.90) m/uL Hgb (13.0-17.5) gm/dL Hct (39.0-53.0) % MCHC (31.0-37.0) g/dL RDW (11.5-15.5) % Neutrophils # (1.3-7.7) k/uL ABG pH (7.35-7.45) ABG pCO2 (35-45) mmHg ABG Total CO2 (19-24) mmol/L ABG O2 Saturation (94-97) % Hemoglobin (13.0-17.5) gm/dL Sodium (137-145) mmol/L Potassium (3.5-5.1) mmol/L Chloride (98-107) mmol/L BUN (9-20) mg/dL Creatinine (0.66-1.25) mg/dL Glucose (74-99) mg/dL POC Glucose (mg/dL) 184 H 127 H (70-110) mg/dL Calcium (8.4-10.2) mg/dL Phosphorus (2.5-4.5) mg/dL Microbiology - Last 24 Hours (Table) 12/14/23 09:55 Anaerobic Culture - Final Abdomen Bacteroides thetaiotaomicron 12/14/23 09:46 Blood Culture Gram Stain - Final Blood Blood Culture - Final Staphylococcus epidermidis Molecular ID Assessment and Plan Assessment: * Altered mental status, likely due to toxic metabolic encephalopathy, severe * Abnormal EEG, with severe encephalopathy. 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 Patient has trace to 1 reflexes at the biceps, but absent elsewhere. Bagwell Ventura syndrome appears less likely. Plan: * Stat EEG was performed on 12/08/2023: It revealed generalized slowing of severe degree. This is suggestive of generalized cerebral dysfunction as can be seen with toxic metabolic encephalopathy or related to diffuse structural brain about a day. Clinical correlation is recommended. Sporadic, periodic generalized sharp-appearing waves were seen. This may suggest underlying cortical irritability. No electrographic seizure was recorded. * Therefore, empirically started on Keppra 500 mg daily. May discontinue Keppra, once mentation comes back to normal. * Repeat EEG on 12/12/2023: Is abnormal. The study is limited because of diffuse myogenic artifact. The background slowing is suggestive of severe encephalopathy. Otherwise no focal slowing, epileptiform discharges or seizure on the EEG. * CT head performed 12/07/2023 revealed no acute intracranial process. Some atrophy. I personally reviewed CT head agree with the findings. * Patient is generalized weak. Patient has been ICU for extended period of time. At risk for critical illness myopathy. * Patient currently on daptomycin and Zosyn. ID following. * For medical management as per critical care and other specialties on board. * Patient continues to be very weak in the muscles, distally and proximally. Suspect critical illness myopathy.
[2023-12-19 11:31] LABS: Glucose,Whole Blood 151 mg/dL (70-110)
--- NOTE | 2023-12-19 12:25 | P.PN ---
Subjective Patient is seen for follow-up for acute kidney injury. Maintained on Precedex. Urine output at 50-60 mL per hour. Mentation has improved. Objective - Vital Signs Vital signs: Vital Signs Temp 97.8 F 12/19/23 04:00 Pulse 88 12/19/23 10:55 Resp 19 12/19/23 07:00 BP 94/57 12/19/23 07:00 Pulse Ox 95 12/19/23 07:00 FiO2 30 12/19/23 10:41 Intake & Output 12/18/23 12/19/23 12/19/23 18:59 06:59 18:59 Intake Total 3428.705 0173 Output Total 1215 760 Balance 703.013 800 Weight 99.3 kg 98 kg Intake: IV 120 130 0.9 KVO 120 130 Intake, IV Titration 293.013 Amount Dexmedetomidine/0.9% NaCl 93.013 (Pmx) 400 mcg In Empty Bag 1 bag @ 0.2 MCG/KG/HR 4.925 mls/hr IV .[id number] [facility] Rx#:[id number] Potassium Chloride 20 meq 200 In Water For Injection 1 100ml.bag @ 50 mls/hr IVPB ONCE ONE Rx#: [id number] Tube Feeding 650 780 Hemodialysis 500 Other 355 650 Output: Drainage 135 125 Right Abdomen 135 125 Urine 580 635 Hemodialysis 22 Hemodialysis Net Amount 478 Other: Voiding Method Indwelling Catheter Indwelling Catheter # Bowel Movements 1 1 ABP, PAP, CO, CI - Last Documented Arterial Blood Pressure 139/59 - Exam patient is on the vent. He is awake and responds appropriately. Mentation has improved Examination of the heart S1 and S2 Examination of the lungs bilateral breath sounds are heard Abdomen is soft dressed, RAYA drain noted Examination of lower extremities shows no significant edema in the legs. 1+ edema noted in bilateral upper extremities. - Labs CBC & Chem 7: 12/19/23 05:34 12/19/23 05:34 Labs: Abnormal Lab Results - Last 24 Hours (Table) 12/18/23 12/18/23 12/18/23 Range/Units 18:25 23:32 23:46 WBC (3.8-10.6) k/uL RBC (4.30-5.90) m/uL Hgb (13.0-17.5) gm/dL Hct (39.0-53.0) % RDW (11.5-15.5) % Neutrophils # (1.3-7.7) k/uL ABG pH 7.49 H (7.35-7.45) ABG pCO2 32 L (35-45) mmHg ABG Total CO2 25 H (19-24) mmol/L ABG O2 Saturation 97.7 H (94-97) % Hemoglobin 6.9 L* (13.0-17.5) gm/dL Chloride (98-107) mmol/L Carbon Dioxide (22-30) mmol/L BUN (9-20) mg/dL Creatinine (0.66-1.25) mg/dL Glucose (74-99) mg/dL POC Glucose (mg/dL) 144 H 223 H (70-110) mg/dL Calcium (8.4-10.2) mg/dL 12/19/23 12/19/23 12/19/23 Range/Units 05:34 05:34 05:35 WBC 14.8 H (3.8-10.6) k/uL RBC 2.58 L (4.30-5.90) m/uL Hgb 7.2 L (13.0-17.5) gm/dL Hct 22.7 L (39.0-53.0) % RDW 18.9 H (11.5-15.5) % Neutrophils # 12.6 H (1.3-7.7) k/uL ABG pH (7.35-7.45) ABG pCO2 (35-45) mmHg ABG Total CO2 (19-24) mmol/L ABG O2 Saturation (94-97) % Hemoglobin (13.0-17.5) gm/dL Chloride 111 H (98-107) mmol/L Carbon Dioxide 21 L (22-30) mmol/L BUN 80 H (9-20) mg/dL Creatinine 1.93 H (0.66-1.25) mg/dL Glucose 193 H (74-99) mg/dL POC Glucose (mg/dL) 214 H (70-110) mg/dL Calcium 7.1 L (8.4-10.2) mg/dL 12/19/23 Range/Units 11:30 WBC (3.8-10.6) k/uL RBC (4.30-5.90) m/uL Hgb (13.0-17.5) gm/dL Hct (39.0-53.0) % RDW (11.5-15.5) % Neutrophils # (1.3-7.7) k/uL ABG pH (7.35-7.45) ABG pCO2 (35-45) mmHg ABG Total CO2 (19-24) mmol/L ABG O2 Saturation (94-97) % Hemoglobin (13.0-17.5) gm/dL Chloride (98-107) mmol/L Carbon Dioxide (22-30) mmol/L BUN (9-20) mg/dL Creatinine (0.66-1.25) mg/dL Glucose (74-99) mg/dL POC Glucose (mg/dL) 151 H (70-110) mg/dL Calcium (8.4-10.2) mg/dL Microbiology - Last 24 Hours (Table) 12/14/23 09:55 Anaerobic Culture - Final Abdomen Bacteroides thetaiotaomicron 12/14/23 09:46 Blood Culture Gram Stain - Final Blood Blood Culture - Final Staphylococcus epidermidis Molecular ID Assessment and Plan Assessment: 1. Acute kidney injury secondary to ATN secondary to septic shock. Creatinine 0.86 on admission and up to 5.38 dated November 29, 2023. nonoliguric. UA fairly benign. No hydronephrosis noted on imaging. Started hemodialysis on 11/29/2023 for worsening volume status and acute kidney injury. 2. Perforated small bowel status post exploratory laparotomy with abdominal washout, small bowel resection and J-tube replacement November 25, 2023. 3. A-fib with RVR. s/p amiodarone drip. Also received digoxin this admission. 4. Recently diagnosed gastric B-cell lymphoma. 5. Septic shock. Likely abdominal source. On IV antibiotics. Off vasopressors now. 6. Hypocalcemia secondary to acute kidney injury. Replaced. Improved. 7. Metabolic acidosis secondary to acute kidney injury. Improved. 8. Volume overload, improved significantly. 9. Hypernatremia Plan: HD in am continue with antibiotics Continue Aranesp
--- NOTE | 2023-12-19 12:40 | P.PN ---
Subjective Progress Note Date: 12/19/23 On today's evaluation of 12/16/2023, the patient is being seen for a follow-up. The patient has been off propofol since 12/11/2023. He is requiring on and off Ativan and Dilaudid for pain control. He is not following any commands. He opens his eyes occasionally and he moves his head and thrashes. I have recommended starting him on Precedex to control his restlessness and agitation. Meanwhile, the patient is on assist-control mode of mechanical ventilation at rate of 20, tidal volume of 500, FiO2 of 30% with a PEEP of 5. Blood gas showed a pH of 7.51 with a pCO2 of 31 and pO2 of 73. Chest x-ray showing a tracheostomy tube being in the upper trachea. It is projecting over the trachea. The patient has a port in his right IJ there is also an right apical cavity that is formed over the past 1 week. There is residual consolidation and small bilateral pleural effusions. Noted the patient was given CPAP trials over the past 24 to 48 hours and he has failed due to increased tachypnea. Sharon nwhile, he is sodium levels at 141 with a BUN of 131 and creatinine of 3.4. Serum bicarb is at 27. WBC count is at 18.9 with a hemoglobin 7.1 and a platelet count of 238. Urine output is in order of 70 cc an hour. He has adequate output from his ileostomy. The abdominal wound is dehisced and there is evidence of an old infection with some purulent secretion from the wound surface in its midportion. The patient is receiving J-tube feeding and is receiving Nepro at rate of 50 cc an hour in addition to 50 cc of fluid flush on an hourly basis to prevent any clogging. He was spiking temperature over the past 24 hours. Tmax was 1101.1 F and the patient was started on a combination of Zosyn and vancomycin pending further cultures. Wound cultures have been obtained. Blood cultures also been obtained. Hemodynamically stable on no pressors. Nephrology on the case regarding his renal failure. The patient will try to get hemodialysis today. 12/17/2023, the patient is being seen for a follow-up. This morning, the patient is awake and is following simple commands only. He is profoundly weak. He remains on Precedex which is currently running at 0.2 mcg/kg/h. The patient is on assist-control motorcycle mechanical ventilation with a tidal volume of 500, rate of 20, FiO2 of 30% and PEEP of 5. Blood gas showed a pH of 7.45 with a pCO2 of 24 and pO2 of 90. Chest x-ray shows extensive cavitation in the right upper lobe with a cavitating pneumonia/infiltrate. There is also lower lobe consolidation and effusions. The patient is having scant respiratory secretions. The culture was positive for Pseudomonas aeruginosa and the patient remains on IV Zosyn. Meanwhile, the patient is on normal saline at rate of 20 cc an hour. No pressors and the patient is hemodynamically stable. The patient is on Nepro 50 cc an hour. The patient is producing adequate amount of urine ou tput in the order of 60 cc an hour. Last hemodialysis session was done yesterday. This was successful without any hemodynamic alteration. The white cell count is 16.2 with a hemoglobin 7.1 and a platelet count of 277. The patient's electrolytes show a sodium level of 143, potassium of 3.7, chlorides 109 and a bicarb of 26 with a BUN of 109 and a creatinine of 2.6. Stool for C. difficile has been negative. This morning, the patient is afebrile. Family at the bedside. Abdominal wound is well-dressed and the RAYA drain is serosanguineous. On today's evaluation of 12/18/2023, the patient is being seen for a follow-up. Awake and communicating and following commands. Nevertheless, profoundly weak, unable to move all of his extremities at this point in time. He is able to communicate by facial expression and sometimes he tries to talk. He remains on low-dose Precedex which is running at 0.2 mcg/kg/h. He is currently on pressure control mode of mechanical ventilation with a pressure control of 20, rate of 20, FiO2 30% with a PEEP of 5. pH is 7.56 with a pCO2 of 27 and pO2 of 91. The patient is undergoing hemodialysis this morning. Urine output is adequate at 75 cc an hour and the patient is on Nepro at rate of 50 cc an hour. CAT scan of the abdomen and pelvis was done yesterday. CAT scan of the chest showed extensive cavitating pneumonia involving the right lung and there is a cavitating lesion in the posterior aspect of the right upper lobe with a fluid- filled cavity/abscess. There is also opacity throughout the right lung and the left lung and this is consistent with gram-negative/pseudomonal pneumonia. There is postsurgical changes anterior abdominal wall with subcutaneous gas. No organizing fluid or collection. Also, the patient has cholelithiasis. J-tube is in good location. The patient has a wound VAC covering the anterior abdominal wall. WBC count is at 12 with a hemoglobin 7.3 and a platelet count of 275. Sodium is 147, potassium 3.4, chloride 113 bicarb is 23 BUN is 116 with a creatinine of 2.6. Antibiotic coverage remains unchanged and the patient remains on IV Zosyn. He is on Adalat 40 mg subcu every 1 week. He is on Levemir insulin 24 units daily along with NovoLog sliding scale coverage. He remains on low-dose Solu-Medrol 20 mg IV every 24 hours. 12/19/2023, the patient essentially the same as yesterday, clinically unchanged remains on Precedex running at 0.15 mcg/kg/min. Able to communicate by facial expression. Unable to move any of his extremities along or against gravity. Reflexes are diminished in all 4 extremities. Remains on pressure control of 15 cm of water with rate of 16, FiO2 of 30% with a PEEP of 5. Blood gas shows a pH of 7.49 with a pCO2 of 32 and pO2 of 91. Hemodynamically stable. Still on Nep ro at rate of 60 cc an hour. Hemodialysis was done yesterday and the patient is producing more than 40 cc an hour of urine output. BUN is 18 with a creatinine of 1.9. Sodium is at 140. The white cell count of 14.8 with a hemoglobin of 7.2 and a platelet count of 247. The patient is afebrile. The patient remains on same antibiotic coverage. Chest x-ray remains unchanged as the patient has a cavitating pneumonia involving the right upper lobe and the right lung fluid- filled cavity/abscess. Respiratory secretions noted. Active. The patient has limited complaints. Remains on mechanical ventilator. No other significant events overnight. Wound VAC is still in place. Objective - Vital Signs Vital signs: Vital Signs Temp 97.8 F 12/19/23 04:00 Pulse 84 12/19/23 07:47 Resp 19 12/19/23 07:00 BP 94/57 12/19/23 07:00 Pulse Ox 95 12/19/23 07:00 FiO2 30 12/19/23 07:33 Intake & Output 12/18/23 12/19/23 12/19/23 18:59 06:59 18:59 Intake Total 4244.451 5734 Output Total 1215 760 Balance 703.013 800 Weight 99.3 kg 98 kg Intake: IV 120 130 0.9 KVO 120 130 Intake, IV Titration 293.013 Amount Dexmedetomidine/0.9% NaCl 93.013 (Pmx) 400 mcg In Empty Bag 1 bag @ 0.2 MCG/KG/HR 4.925 mls/hr IV .[id number] [facility] Rx#:[id number] Potassium Chloride 20 meq 200 In Water For Injection 1 100ml.bag @ 50 mls/hr IVPB ONCE ONE Rx#: [id number] Tube Feeding 650 780 Hemodialysis 500 Other 355 650 Output: Drainage 135 125 Right Abdomen 135 125 Urine 580 635 Hemodialysis 22 Hemodialysis Net Amount 478 Other: Voiding Method Indwelling Catheter Indwelling Catheter # Bowel Movements 1 1 ABP, PAP, CO, CI - Last Documented Arterial Blood Pressure 139/59 - Exam No acute distress, arousable on Precedex and following simple commands, comfortable, still on the mechanical ventilator. HEENT examination is grossly unremarkable. Mucous membranes are moist. No oral lesions.. The patient also has a tracheostomy tube in place and the patient has a #8 Shiley tracheostomy tube. Cardiac exam revealed the PMI to be normally situated and sized. The rhythm was regular and no extrasystoles were noted during several minutes of auscultation. The first and second heart sounds were normal and physiologic splitting of the second heart sound was noted. There were no murmurs, rubs, clicks, or gallops. The patient is in sinus tachycardia. Lungs reveal mild scattered rhonchi. No wheezes or crackles. Breath sounds equal. Diminished breath sound lung base bilaterally. Abdomen distended without bowel sounds. J-tube is noted. Mid abdominal wound is dehisced and it is opened in its midportion for approximately 2 cm with purulent drainage at the wound surface. Patient also has a RAYA drain in place and output is serosanguineous. Extremities are intact. No cyanosis clubbing trace edema lower extremities bilaterally Skin is without rash or lesion. The wound at the Mediport site is dry and the area has been sutured and the site is clean for now. Neurologic examination is brief but nonfocal. - Labs CBC & Chem 7: 12/19/23 05:34 12/19/23 05:34 Labs: Abnormal Lab Results - Last 24 Hours (Table) 12/18/23 12/18/23 12/18/23 Range/Units 04:03 11:44 18:25 WBC (3.8-10.6) k/uL RBC (4.30-5.90) m/uL Hgb (13.0-17.5) gm/dL Hct (39.0-53.0) % RDW (11.5-15.5) % Neutrophils # (1.3-7.7) k/uL ABG pH (7.35-7.45) ABG pCO2 (35-45) mmHg ABG Total CO2 (19-24) mmol/L ABG O2 Saturation (94-97) % Hemoglobin (13.0-17.5) gm/dL Chloride (98-107) mmol/L Carbon Dioxide (22-30) mmol/L BUN (9-20) mg/dL Creatinine (0.66-1.25) mg/dL Glucose (74-99) mg/dL POC Glucose (mg/dL) 127 H 144 H (70-110) mg/dL Calcium (8.4-10.2) mg/dL Phosphorus 4.7 H (2.5-4.5) mg/dL 12/18/23 12/18/23 12/19/23 Range/Units 23:32 23:46 05:34 WBC 14.8 H (3.8-10.6) k/uL RBC 2.58 L (4.30-5.90) m/uL Hgb 7.2 L (13.0-17.5) gm/dL Hct 22.7 L (39.0-53.0) % RDW 18.9 H (11.5-15.5) % Neutrophils # 12.6 H (1.3-7.7) k/uL ABG pH 7.49 H (7.35-7.45) ABG pCO2 32 L (35-45) mmHg ABG Total CO2 25 H (19-24) mmol/L ABG O2 Saturation 97.7 H (94-97) % Hemoglobin 6.9 L* (13.0-17.5) gm/dL Chloride (98-107) mmol/L Carbon Dioxide (22-30) mmol/L BUN (9-20) mg/dL Creatinine (0.66-1.25) mg/dL Glucose (74-99) mg/dL POC Glucose (mg/dL) 223 H (70-110) mg/dL Calcium (8.4-10.2) mg/dL Phosphorus (2.5-4.5) mg/dL 12/19/23 12/19/23 Range/Units 05:34 05:35 WBC (3.8-10.6) k/uL RBC (4.30-5.90) m/uL Hgb (13.0-17.5) gm/dL Hct (39.0-53.0) % RDW (11.5-15.5) % Neutrophils # (1.3-7.7) k/uL ABG pH (7.35-7.45) ABG pCO2 (35-45) mmHg ABG Total CO2 (19-24) mmol/L ABG O2 Saturation (94-97) % Hemoglobin (13.0-17.5) gm/dL Chloride 111 H (98-107) mmol/L Carbon Dioxide 21 L (22-30) mmol/L BUN 80 H (9-20) mg/dL Creatinine 1.93 H (0.66-1.25) mg/dL Glucose 193 H (74-99) mg/dL POC Glucose (mg/dL) 214 H (70-110) mg/dL Calcium 7.1 L (8.4-10.2) mg/dL Phosphorus (2.5-4.5) mg/dL Microbiology - Last 24 Hours (Table) 12/14/23 09:55 Anaerobic Culture - Final Abdomen Bacteroides thetaiotaomicron 12/14/23 09:46 Blood Culture Gram Stain - Final Blood Blood Culture - Final Staphylococcus epidermidis Molecular ID Assessment and Plan Plan: Acute hypoxemic respiratory failure with failure to wean from mechanical ventilation, S/P tracheostomy on December 10, 2023. The patient has bilateral pneumonia with a cavitary infiltrate in the right upper lobe, secondary to Pseudomonas and the patient is currently on IV Zosyn. Patient is afebrile hemodynamically stable this morning. CAT scan of the chest done on 12/17/2023 was reviewed and the patient has a cavitating cyst/abscess in the posterior aspect of the right upper lobe in addition to patchy opacities bilaterally right more than left consistent with pneumonia,/gram-negative pneumonia attributed to Pseudomonas and Klebsiella. Hospital-acquired right lung pseudomonal/Klebsiella pneumonia. Patient is currently on IV Zosyn. 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 Small bowel perforation with abdominal contamination. The patient is status post expiratory laparotomy and small bowel resection and insertion of another jejunostomy tube. The patient jejunostomy is functional and the patient is stooling. However, the abdominal wound is dehisced and is infected. RAYA drain output is serosanguineous. A wound VAC was applied to the anterior abdominal wall. Peritonitis secondary to above Septic shock secondary to above, the patient is currently off pressors Atrial fibrillation with rapid medical response, currently back into normal sinus rhythm . Acute kidney injury, currently hemodialysis dependent and the patient is a dialysis cath in his left femoral vein. Hemodialysis was done on 12/18/2023 History of acute aspiration during upper endoscopy most likely secondary to gastric outlet obstruction secondary to non-Hodgkin's lymphoma. weight loss most likely secondary non-Hodgkin's lymphoma involving the stomach. Anemia of chronic disease, multifactorial Encephalopathy, multifactorial, could be drug related/sepsis related, essentially a component of metabolic encephalopathy, improving and the patient is currently on low-dose Precedex and the patient is communicating and following simple commands Profound weakness in all 4 extremities and the patient is unable to move at this point in time. Motor function 0 out of 5 in all 4 extremities. Positive cough. Positive gag. 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 Plan Continue ventilator support. Dropped to pressure control down to 10 cm of water Continue IV Zosyn Continue enteral feeding for nutritional support, and the patient is currently on Nepro via a J-tube. Hemodialysis was done yesterday Discontinue IV Solu-Medrol Monitor fever pattern General Surgery is on the case regarding abdominal wound Enteral feeding for nutritional support with Nepro PT for passive range of motion . Follow-up with neurology regarding the possibility of IVIG. Condition remains extremely critical with poor prognosis based on the above Will continue to follow this patient along with the rest of the consultants. Condition is critical over the poor outcome based on the above. Evaluation was done more than 30 minutes. Time with Patient: Greater than 30
[2023-12-19] MEDS: HYDROmorphone 0.5 MG/0.5 ML SYRINGE IVP PRN (13:14)
--- NOTE | 2023-12-19 13:26 | P.PN ---
Subjective Progress Note Date: 12/18/23 Principal diagnosis: Reason for follow-up is pneumonia and bacteremia Patient is 73-year-old with male initial presentation to the hospital on 11/11/2021 for after the patient did have aspiration while undergoing elective endoscopy, diagnosed with a non-Hodgkin of, subsequently did have explained laparotomy for perforated small bowel abdominal washout and feeding jejunostomy tube patient did require dialysis catheter placement for dialysis during this hospital stay and tracheostomy for respiratory failure, infectious was consulted for fever. On today's evaluation that is 12/18/2023, patient did have low-grade fever of 100.4 F around 4 AM, the patient is afebrile since then patient is currently breathing comfortably and is on a 30% trach collar no worsening cough vomiting or diarrhea reported by the nursing staff. Patient white count is down to 12.5 creatinine is 2.68 sputum is growing Klebsiella and Pseudomonas Objective - Vital Signs Vital signs: Vital Signs Temp 98.3 F 12/18/23 12:33 Pulse 89 12/18/23 14:00 Resp 29 H 12/18/23 14:00 BP 90/57 12/18/23 14:00 Pulse Ox 97 12/18/23 14:00 FiO2 30 12/18/23 12:00 Intake & Output 12/17/23 12/18/23 12/18/23 18:59 06:59 18:59 Intake Total 1062 5817.242 8607.251 Output Total 890 1195 1015 Balance 172 -113.327 316.251 Weight 99.3 kg 99.3 kg Intake: IV 282 220 80 0.9 KVO 120 120 80 DAPTOmycin 600 mg In 50 Sodium Chloride 0.9% 50 ml @ 100 mls/hr IVPB Q48H [facility] Rx#:[id number] Normal Saline Pressure 12 Saline Piperacillin-Tazobactam 3 100 .375 gm In Sodium Chloride 0.9% 100 ml @ 25 mls/hr IVPB Q12HR [facility] Rx #:[id number] Piperacillin-Tazobactam 3 100 .375 gm In Sodium Chloride 0.9% 100 ml @ 25 mls/hr IVPB Q8HR [facility] Rx# :[id number] Intake, IV Titration 81.673 186.251 Amount Dexmedetomidine/0.9% NaCl 81.673 86.251 (Pmx) 400 mcg In Empty Bag 1 bag @ 0.2 MCG/KG/HR 4.925 mls/hr IV .[id number] [facility] Rx#:[id number] Potassium Chloride 20 meq 100 In Water For Injection 1 100ml.bag @ 50 mls/hr IVPB ONCE ONE Rx#: [id number] Tube Feeding 600 600 410 Hemodialysis 500 Other 180 180 155 Output: Drainage 170 90 Right Abdomen 170 90 Urine 720 1195 425 Hemodialysis 22 Hemodialysis Net Amount 478 Other: Voiding Method Indwelling Catheter Indwelling Catheter Indwelling Catheter # Bowel Movements 1 ABP, PAP, CO, CI - Last Documented Arterial Blood Pressure 139/59 - Exam GENERAL DESCRIPTION: An elderly male lying in bed in no distress RESPIRATORY SYSTEM: Unlabored breathing , decreased breath sounds at bases HEART: S1 S2 regular rate and rhythm , ABDOMEN: Soft , no tenderness EXTREMITIES: No edema feet - Labs CBC & Chem 7: 12/19/23 05:34 12/19/23 05:34 Labs: Abnormal Lab Results - Last 24 Hours (Table) 12/17/23 12/18/23 12/18/23 Range/Units 18:36 00:21 04:03 WBC 12.5 H (3.8-10.6) k/uL RBC 2.68 L (4.30-5.90) m/uL Hgb 7.3 L (13.0-17.5) gm/dL Hct 23.8 L (39.0-53.0) % MCHC 30.8 L (31.0-37.0) g/dL RDW 19.2 H (11.5-15.5) % Neutrophils # 10.2 H (1.3-7.7) k/uL ABG pH (7.35-7.45) ABG pCO2 (35-45) mmHg ABG Total CO2 (19-24) mmol/L ABG O2 Saturation (94-97) % Hemoglobin (13.0-17.5) gm/dL Sodium (137-145) mmol/L Potassium (3.5-5.1) mmol/L Chloride (98-107) mmol/L BUN (9-20) mg/dL Creatinine (0.66-1.25) mg/dL Glucose (74-99) mg/dL POC Glucose (mg/dL) 120 H 145 H (70-110) mg/dL Calcium (8.4-10.2) mg/dL Phosphorus (2.5-4.5) mg/dL 12/18/23 12/18/23 12/18/23 Range/Units 04:03 04:03 04:48 WBC (3.8-10.6) k/uL RBC (4.30-5.90) m/uL Hgb (13.0-17.5) gm/dL Hct (39.0-53.0) % MCHC (31.0-37.0) g/dL RDW (11.5-15.5) % Neutrophils # (1.3-7.7) k/uL ABG pH 7.56 H* (7.35-7.45) ABG pCO2 27 L (35-45) mmHg ABG Total CO2 25 H (19-24) mmol/L ABG O2 Saturation 98.2 H (94-97) % Hemoglobin 7.2 L (13.0-17.5) gm/dL Sodium 147 H (137-145) mmol/L Potassium 3.4 L (3.5-5.1) mmol/L Chloride 113 H (98-107) mmol/L BUN 116 H* (9-20) mg/dL Creatinine 2.68 H (0.66-1.25) mg/dL Glucose 167 H (74-99) mg/dL POC Glucose (mg/dL) (70-110) mg/dL Calcium 7.2 L (8.4-10.2) mg/dL Phosphorus 4.7 H (2.5-4.5) mg/dL 12/18/23 12/18/23 Range/Units 05:56 11:44 WBC (3.8-10.6) k/uL RBC (4.30-5.90) m/uL Hgb (13.0-17.5) gm/dL Hct (39.0-53.0) % MCHC (31.0-37.0) g/dL RDW (11.5-15.5) % Neutrophils # (1.3-7.7) k/uL ABG pH (7.35-7.45) ABG pCO2 (35-45) mmHg ABG Total CO2 (19-24) mmol/L ABG O2 Saturation (94-97) % Hemoglobin (13.0-17.5) gm/dL Sodium (137-145) mmol/L Potassium (3.5-5.1) mmol/L Chloride (98-107) mmol/L BUN (9-20) mg/dL Creatinine (0.66-1.25) mg/dL Glucose (74-99) mg/dL POC Glucose (mg/dL) 184 H 127 H (70-110) mg/dL Calcium (8.4-10.2) mg/dL Phosphorus (2.5-4.5) mg/dL Microbiology - Last 24 Hours (Table) 12/14/23 09:55 Anaerobic Culture - Final Abdomen Bacteroides thetaiotaomicron 12/14/23 09:46 Blood Culture Gram Stain - Final Blood Blood Culture - Final Staphylococcus epidermidis Molecular ID 12/14/23 11:35 Gram Stain - Final Sputum Sputum Culture - Final Klebsiella oxytoca Pseudomonas aeruginosa Assessment and Plan (1) Sepsis Current Visit: Yes Status: Acute Code(s): A41.9 - SEPSIS, UNSPECIFIED ORGANISM SNOMED Code(s): 08906478 (2) Pneumonia Current Visit: Yes Status: Acute Code(s): J18.9 - PNEUMONIA, UNSPECIFIED ORGANISM SNOMED Code(s): 793604492 (3) Bacteremia Current Visit: Yes Status: Acute Code(s): R78.81 - BACTEREMIA SNOMED Code(s): 9161197 Plan: 1patient with sepsis in this patient has been in the hospital for 34 days before this initial consultation with initial admission to the hospital after elective EGD with the patient was noted to have gastric outlet obstruction and did aspirated subsequently the patient did have laparotomy for perforated small bowel status post resection and jejunostomy tube placement noted to have evidence of a midline abdominal wound dehiscence did have a apical cavitary lesion on the right side with his sputum showing Pseudomonas and Klebsiella, the patient also have positive blood culture with coagulase-negative staph patient did have a PICC line as well as dialysis catheter etiology of his sepsis is likely multifactorial in this patient who did have a complicated history over the last 1 month including pneumonia and possible line related sepsis versus abdominal source 2-patient did have improvement in the fever pattern, white count is trending down to continue with Zosyn and daptomycin, monitor clinical course closely Dictation was produced using [employer] dictation software. please excuse any grammatical, word or spelling errors. Time with Patient: Less than 30
--- NOTE | 2023-12-19 15:45 | P.PN ---
Subjective Progress Note Date: 12/19/23 Principal diagnosis: Reason for follow-up is pneumonia and bacteremia Patient is 73-year-old with male initial presentation to the hospital on 11/11/2021 for after the patient did have aspiration while undergoing elective endoscopy, diagnosed with a non-Hodgkin of, subsequently did have explained laparotomy for perforated small bowel abdominal washout and feeding jejunostomy tube patient did require dialysis catheter placement for dialysis during this hospital stay and tracheostomy for respiratory failure, infectious was consulted for fever. On today's evaluation that is 12/19/2023, Patient did have low-grade fever 100.2 at noon the patient seem to be slightly irritable FiO2 is currently stable at 30% no significant purulent secretion through the ET or any changes reported by the nursing staff. Patient white count is slightly up to 14.8 today, creat is 1.93 Objective - Vital Signs Vital signs: Vital Signs Temp 100.2 F H 12/19/23 12:00 Pulse 93 12/19/23 13:00 Resp 30 H 12/19/23 13:00 BP 88/51 12/19/23 13:00 Pulse Ox 95 12/19/23 13:00 FiO2 30 12/19/23 12:00 Intake & Output 12/18/23 12/19/23 12/19/23 18:59 06:59 18:59 Intake Total 7784.056 0988 178.031 Output Total 1215 760 450 Balance 703.013 800 -271.969 Weight 99.3 kg 98 kg Intake: IV 120 130 60 0.9 KVO 120 130 60 Intake, IV Titration 293.013 118.031 Amount DAPTOmycin 600 mg In 50 Sodium Chloride 0.9% 50 ml @ 100 mls/hr IVPB Q48H [facility] Rx#:[id number] Dexmedetomidine/0.9% NaCl 93.013 68.031 (Pmx) 400 mcg In Empty Bag 1 bag @ 0.2 MCG/KG/HR 4.925 mls/hr IV .[id number] [facility] Rx#:[id number] Potassium Chloride 20 meq 200 In Water For Injection 1 100ml.bag @ 50 mls/hr IVPB ONCE ONE Rx#: [id number] Tube Feeding 650 780 Hemodialysis 500 Other 355 650 Output: Drainage 135 125 Right Abdomen 135 125 Urine 580 635 450 Hemodialysis 22 Hemodialysis Net Amount 478 Other: Voiding Method Indwelling Catheter Indwelling Catheter Indwelling Catheter # Bowel Movements 1 1 1 ABP, PAP, CO, CI - Last Documented Arterial Blood Pressure 139/59 - Exam GENERAL DESCRIPTION: An elderly male lying in bed in no distress RESPIRATORY SYSTEM: Unlabored breathing , decreased breath sounds at bases HEART: S1 S2 regular rate and rhythm , ABDOMEN: Soft , no tenderness EXTREMITIES: No edema feet - Labs CBC & Chem 7: 12/19/23 05:34 12/19/23 05:34 Labs: Abnormal Lab Results - Last 24 Hours (Table) 12/18/23 12/18/23 12/18/23 Range/Units 18:25 23:32 23:46 WBC (3.8-10.6) k/uL RBC (4.30-5.90) m/uL Hgb (13.0-17.5) gm/dL Hct (39.0-53.0) % RDW (11.5-15.5) % Neutrophils # (1.3-7.7) k/uL ABG pH 7.49 H (7.35-7.45) ABG pCO2 32 L (35-45) mmHg ABG Total CO2 25 H (19-24) mmol/L ABG O2 Saturation 97.7 H (94-97) % Hemoglobin 6.9 L* (13.0-17.5) gm/dL Chloride (98-107) mmol/L Carbon Dioxide (22-30) mmol/L BUN (9-20) mg/dL Creatinine (0.66-1.25) mg/dL Glucose (74-99) mg/dL POC Glucose (mg/dL) 144 H 223 H (70-110) mg/dL Calcium (8.4-10.2) mg/dL 12/19/23 12/19/23 12/19/23 Range/Units 05:34 05:34 05:35 WBC 14.8 H (3.8-10.6) k/uL RBC 2.58 L (4.30-5.90) m/uL Hgb 7.2 L (13.0-17.5) gm/dL Hct 22.7 L (39.0-53.0) % RDW 18.9 H (11.5-15.5) % Neutrophils # 12.6 H (1.3-7.7) k/uL ABG pH (7.35-7.45) ABG pCO2 (35-45) mmHg ABG Total CO2 (19-24) mmol/L ABG O2 Saturation (94-97) % Hemoglobin (13.0-17.5) gm/dL Chloride 111 H (98-107) mmol/L Carbon Dioxide 21 L (22-30) mmol/L BUN 80 H (9-20) mg/dL Creatinine 1.93 H (0.66-1.25) mg/dL Glucose 193 H (74-99) mg/dL POC Glucose (mg/dL) 214 H (70-110) mg/dL Calcium 7.1 L (8.4-10.2) mg/dL 12/19/23 Range/Units 11:30 WBC (3.8-10.6) k/uL RBC (4.30-5.90) m/uL Hgb (13.0-17.5) gm/dL Hct (39.0-53.0) % RDW (11.5-15.5) % Neutrophils # (1.3-7.7) k/uL ABG pH (7.35-7.45) ABG pCO2 (35-45) mmHg ABG Total CO2 (19-24) mmol/L ABG O2 Saturation (94-97) % Hemoglobin (13.0-17.5) gm/dL Chloride (98-107) mmol/L Carbon Dioxide (22-30) mmol/L BUN (9-20) mg/dL Creatinine (0.66-1.25) mg/dL Glucose (74-99) mg/dL POC Glucose (mg/dL) 151 H (70-110) mg/dL Calcium (8.4-10.2) mg/dL Microbiology - Last 24 Hours (Table) 12/14/23 09:55 Anaerobic Culture - Final Abdomen Bacteroides thetaiotaomicron 12/14/23 09:46 Blood Culture Gram Stain - Final Blood Blood Culture - Final Staphylococcus epidermidis Molecular ID Assessment and Plan (1) Sepsis Current Visit: Yes Status: Acute Code(s): A41.9 - SEPSIS, UNSPECIFIED ORGANISM SNOMED Code(s): 00143976 (2) Pneumonia Current Visit: Yes Status: Acute Code(s): J18.9 - PNEUMONIA, UNSPECIFIED ORGANISM SNOMED Code(s): 386833673 (3) Bacteremia Current Visit: Yes Status: Acute Code(s): R78.81 - BACTEREMIA SNOMED Code(s): 1371864 Plan: 1patient with sepsis in this patient has been in the hospital for 34 days before this initial consultation with initial admission to the hospital after elective EGD with the patient was noted to have gastric outlet obstruction and did aspirated subsequently the patient did have laparotomy for perforated small bowel status post resection and jejunostomy tube placement noted to have evidence of a midline abdominal wound dehiscence did have a apical cavitary lesion on the right side with his sputum showing Pseudomonas and Klebsiella, the patient also have positive blood culture with coagulase-negative staph patient did have a PICC line as well as dialysis catheter etiology of his sepsis is likely multifactorial in this patient who did have a complicated history over the last 1 month including pneumonia and possible line related sepsis versus abdominal source 2-patient did have a low-grade fever today of 100.2 and white count slightly up as well will repeat his blood culture blood cultures also repeated from his dialysis catheter tomorrow continue with Zosyn and daptomycin and monitor clinical course closely Dictation was produced using [employer] dictation software. please excuse any grammatical, word or spelling errors. Time with Patient: Less than 30
--- NOTE | 2023-12-19 16:02 | P.PN ---
Progress Note - Text Progress Note Date: 12/19/23 CHIEF COMPLAINT: Abdominal pain HISTORY OF PRESENT ILLNESS: Patient remains in the ICU on mechanical ventilation. He had wound VAC placed on the area of dehiscence at the midline incision. RAYA drain with serous output. Tube feeds remain at goal at 50 mL/h. Patient having low-grade fevers. PHYSICAL EXAM: VITAL SIGNS: Reviewed. GENERAL: no acute distress. HEENT: Tracheostomy site clean dry and intact ABDOMEN: Soft. Nondistended. Midline incision with wound VAC in place and intact. J-tube in place with minimal bilious drainage noted on dressing. RAYA drain in place with serous output ASSESSMENT: 1. 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 Status post J-tube placement and revision for small bowel obstruction 2. Abdominal wound dehiscence status post wound VAC placement 3. 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
[2023-12-19 18:33] LABS: Glucose,Whole Blood 132 mg/dL (70-110)
--- NOTE | 2023-12-19 20:47 | P.PN ---
Progress Note - Text Progress Note Date: 12/19/23 Chief Complaint: Aspirated This is a 73-year-old patient, follows with Dr. Patricia Deal. Patient was seen this morning in the ICU. Patient's and daughter at the bedside. History obtained predominantly by the . Patient been having trouble with his stomach symptoms for close to 8 months. Patient underwent EGD by Dr. Sahara Cheng yesterday. Patient was found to have ulcerated around the antrum and obstruction to the pylorus. A lot of retained food was found. Patient aspirated. Had to be intubated and brought to the ICU. On a Levophed drip. FiO2 50 and a PEEP of 6. Patient had been losing weight lost about 25 pounds. Previously has a history of mitral valve prolapse. November 13: ICU. Patient remains on Precedex drip and propofol drip. Did not do well attempted extubation yesterday. Patient been off Levophed. NG tube to suction. Spoke to patient's and son at the bedside. Biopsy results awaited. Hemoglobin dropped to 6.9 this morning. Get a unit of blood. November 14: ICU. Up in a chair. Extubated yesterday. NG tube to suction. at the bedside. 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 Oncology was consulted. They have ordered a port. Results discussed with Dr. Sahara Cheng. General surgery was consulted for J-tube placement. Discussed with at the bedside. Patient getting IV fluids, IV Zosyn,. Patient has been on IV amiodarone for A-fib-back in sinus rhythm. Multiple PACs. Did receive unit of blood yesterday. Also IV ferric gluconate. November 15: ICU. Patient earlier today underwent jejunostomy tube placement and a port placement. Patient awake. Answering questions. NG tube to suction present. Updated patient's . Patient remains on IV amiodarone and IV Zosyn. November 16: ICU. Up in the chair. NG tube present but not to suction. Trickle feeding through the jejunostomy tube should be started today. Dietitian has been on board. IV Zosyn to continue. Patient's and his sister at the bedside. Discussed. Also spoke with Dr. Serna. Given patient has no other predisposing cardiac factors for the A-fib except acute illness. His LV function is normal. Left atrium is normal. He has already been loaded with IV amiodarone. Will switch him to oral Lopressor 12.5 twice daily. Hence will DC amiodarone. Patient yesterday had wheezing was put on bronchodilators steroids per pulmonary. November 17: Propped up in bed. NG tube was discontinued. Sinus rhythm. Remains NPO. Getting G-tube feeding at 40 cc an hour. Dietitian following. Get arrangements done for DC home tomorrow including tube feeding. Increase activity discussed with patient and elder daughter at the bedside. Still requiring oxygen. Incentive spirometry. November 18: Patient up in recliner. Earlier today spoke to healthcare social worker David. Informed patient is rather weak and will be going to the [facility]. Looking at authorization. Denae came to the room and spoke to patient his and his daughter. They are very keen to take the patient home as 3 daughters all nurses and they will take care of him at home. Patient earlier today to abdominal cramping and some loose stools.'s tube feeding was held. Told the nurse to start back at the rate of 40 cc an hour. He was before the getting it at 55 cc an hour. Incentive spirometry was again emphasized. Patient remains on 4 L of oxygen. November 19: I saw the patient this morning. Hence I am in the evening. Morning was sitting with his sons. Has some edema. Lungs had crackles I gave him 40 mg of Lasix. He did make good urine. Tube feeding was held from the previous evening of because of abdominal cramping. Acute abdominal series showed nonspecific bowel gas pattern and SBO to be ruled out. Family and patient was updated. Told him discharge will depend on day by day. Later this afternoon CT scanAnd abdomen pelvis done. Showed small bowel to be 3 point centimeter dilated. Some anasarca. Gastric findings. Gallstones. Later spoke to Dr. Irby from general surgery. They will further review and decide about further plan of action. Will give further dose of IV Lasix because of fluid overload from likely hypoalbuminemia and IV fluids previously received. Patient may take his pills by mouth. Total time spent today about 1 hour with over 40 minutes of discussion. Patient did state his breathing is better after Lasix this morning. November 20: Saw the patient this morning. was present. Patient received 2 more doses of Lasix. Diuresed well. Breathing much better. Lungs are sounding better. Discussed with Dr. Zepeda other surgeon. He is taking 3 cc out of the balloon and the gastrostomy tube. Started trickle feeding at 5 cc an hour. Will see how this does. Later in the day ran into the and the daughter again. Did update them on the same. Dilaudid was discontinued yesterday but morphine was ordered by surgery for patient having pain. Concerns about GI issues with that we will DC the morphine. As family does not want the same. November 21: Patient reclining bed. Tired. Several family members at the bedside. Including his and eldest daughter. Patient started on trickle feed yesterday at 5 cc an hour. This morning he has been on 10 cc an hour. Still having some loose stools. C. difficile was ordered. Patient on 2 L of nasal cannula. Has diuresed well. Will give an additional dose of Lasix today. If C. difficile is negative and the diarrhea is from the tube feedings we may have to use a fecal management system to keep him comfortable. Otherwise patient remains NPO. Dietitian is following the patient. Care was discussed length with patient the and daughter at the bedside. Questions answered. Liquid Tylenol has been added for abdominal pain. Avoid narcotics. Elevated white count likely from Solu-Medrol 11/23/2023--patient was feeling better today. Multiple family member at bedside. No issues overnight. Normal saline at 10 cc an hour, tube feeding at 20 cc an hour, remains on Zosyn, on 3 L oxygen. Afebrile. Heart rate 62, respiratory rate 16, blood pressure 114/67, saturating 91% on 3 L. WBCs 14.5, 9.7 hemoglobin. Platelet 242. BMP is unremarkable. Pulmonary and general surgery following. General surgery recommended to continue tube feeds at 20 cc/h. 11/24/2023--patient reported significant abdominal discomfort, also noted to have leak around G-tube. General surgery is following, evaluated the patient at bedside, adjusted tube feeds. Also reported having diarrhea, on 2 L oxygen, went up to 5 L. Blood pressure was low, 500 mL fluid bolus with close monitoring of respiratory status ordered. Currently on DuoNebs, Solu-Medrol, will continue Zosyn. Chest x-ray showed a left lower lobe infiltrate. Abdominal x-ray showed multiple air-fluid levels. CT abdomen showed multiple dilated small bowel loops, consistent with obstruction, pneumoperitoneum, cholelithiasis and ascites. WBCs 14.1, platelet 255, hemoglobin 8.9. NG tube in place. Family at bedside. patient transferred to SICU for close monitoring. 11/25/23--patient is currently in the ICU, required Levophed overnight due to low blood pressure, low urine output with creatinine trending up. Nephrology following. Office Services Assistant also following. Patient remains n.p.o., NG tube in place, following NG tube insertion patient had total of 2 L output, J-tube was draining approximately 200 cc over last 8 hours, continues to have abdominal pain and abdominal tenderness. Patient on IV fluids. Currently on 4 L oxygen. WBCs 8.2, hemoglobin 12.3, platelet 188. Chest x-ray earlier today showed right sided port and a stable left lung airspace disease, NG tube in place. Patient currently on Zosyn, on IV Dilaudid for pain control, on IV Solu-Medrol. General surgery planning for OR today, started on TPN. 11/26/23--patient was seen and examined today. Patient is currently sedated, intubated on mechanical ventilation. Family at bedside. Patient underwent ex lap, abdominal washout, small bowel resection with new feeding jejunostomy tube placement yesterday, small bowel was noted to be perforated with significant contamination of abdominal cavity. Patient is currently on vancomycin and Zosyn. Creatinine went up to 2.85, nephrology following, recommended to continue IV fluids, avoid nephrotoxin Preserved EF on echocardiogram.. Patient currently on Levophed, vasopressin in the ICU for close monitoring. Patient is afebrile, heart rate 122, blood pressure 129/76, currently on mechanical ventilation, sedated. November 26: ICU. Intubated. FiO2 60 and a PEEP of 5. Drips include IV amiodarone. Heart rate was up early did get fired microgram of IV digoxin and 2.5 mg of IV Lopressor. Did drop her blood pressure bit. Urine output was low. Received 80 mg of IV Lasix. Ahmet to 150 cc. Other drips include IV propofol, vasopressin, Levophed. TPN was started yesterday. Antibiotics include IV Zosyn and vancomycin. Patient has a J-tube to drainage to gravity. Spoke to patient's younger daughter and at the bedside. Prognosis guarded. Continue current treatment plan. Chest x-ray shows right lower lobe consolidation. Small pleural effusion. November 27: ICU. Intubated. FiO2 55 and a PEEP of 5. Antibiotics include IV vancomycin. Drips include Levophed at a small dose, IV vasopressin, propofol, amiodarone. Patient converted to sinus rhythm this morning. Getting TPN and normal saline at 75 cc an hour. Urine output about 25 cc an hour. RAYA drain put out about 260 cc last 12 hours that is last overnight houseperson. NG tube with bilious output. And also GI J-tube output to gravity. Spoke to patient's and daughter at the bedside. They understand patient still not out of the kee. Platelets have dropped-therefore probably Zosyn stopped. November 28: ICU. Intubated. FiO2 55 and a PEEP of 5. Patient is in sinus rhythm. Seen this morning. Due for dialysis catheter this afternoon. Urine output about 15 to 20 cc an hour. Patient is on IV Lasix 80 mg every 12. Saline is KVO. Drips include IV propofol vasopressin. Patient having significant output through the RAYA drain and the jejunostomy tube to drainage. Creatinine had been getting worse. Patient's at the bedside. Understands patient's remains critically ill. Hemoglobin is down to 7. Given that patient's pain hypotensive, and on vasopressin we will give a unit of blood with dialysis. Getting TPN antibiotic changed to IV meropenem November 29: ICU. Intubated. FiO2 55 and a PEEP of 5. Remains in sinus rhythm. Getting TPN. Dialyzed yesterday and this morning. About 1000 cc removed. Urine output about 50 cc an hour. Patient is on IV propofol. Off vasopressin. Still having significant output through the RAYA drain and jejunostomy tube. Patient received a second unit of blood yesterday. Patient's and daughter at the bedside. I did discuss guarded prognosis. Did asked them to revisit CODE STATUS.. Getting IV meropenem. November 30: ICU. Intubated. Did get a sedation holiday t today. Back on propofol. Getting TPN. Still getting IV Lasix. Fair urine output. Jejunostomy tube in last 8 hours was about 30 cc output. RAYA drain in the 8 hours had about 180 cc output. Telemetry shows sinus rhythm. NG tube has low intermittent suction with negative output. On the vent with FiO2 40 and a PEEP of 5. No hemodialysis today. Discussed with the and eldest daughter at the bedside. IV meropenem-patient's sputum had grown Citrobacter freundii and Pseudomonas aeruginosa. December 01: ICU. Intubated. Jejunostomy tube to gravity. Only 10 cc output in last 24 hours. RAYA drain. About 190 cc last 6 hours. Nasogastric tube to low intermittent suction. Minimal output. Patient is on a small dose of propofol 5 mics. Telemetry shows sinus rhythm. Patient started on small dose of Cleviprex this morning. Blood pressure. Getting TPN. FiO2 35 and PEEP of 5. Discussed with the at the bedside. Hemodialysis today December 02: ICU. Patient remains intubated. FiO2 35 PEEP of 5. Patient is on IV propofol. IV Cleviprex was discontinued yesterday. Also remains on TPN. Telemetry shows sinus rhythm. NG tube is good no output. Still significant output through the RAYA drain. Jejunostomy tube has minimal output. Patient had hemodialysis today 2 L of fluid was removed. Oral half liters yesterday. Patient getting a sedation holiday. General Surgery started the patient on trickle feeding at 10 cc an hour. I did speak to patient's at the bedside. Prognosis remains guarded but there is some improvement. December 03: ICU. Intubated. FiO2 35 PEEP of 5. Drips include IV propofol and Precedex. Getting TPN. Telemetry shows sinus rhythm. Remains on IV Lasix 80 mg twice a day. IV meropenem. Because patient gets easily agitated when transitioning off propofol he has been switched over to Precedex. For hemodialysis today. December 04: ICU. Intubated. FiO2 35 and a PEEP of 5. Patient been taken off propofol is on Precedex. Telemetry sinus rhythm. J-tube with minimal output. RAYA drain with decreased output. NG tube to suction minimal output. Family wanted to hold off trickle feeding until cleared by oncology. Which he did today. Trickle feeding will be started today. Spoke to patient's and one of the daughters at the bedside. Dr. Russ is spoken to the earlier this point they want to do further tracheostomy tube. December 05: ICU. Intubated. FiO2 35 PEEP of 5. Patient remains on Precedex and PPN. Patient's dialysis catheter was not functioning is getting another [address] Bobby this afternoon. Remains on IV meropenem. Has a RAYA drain in the jejunostomy tube to gravity. NG tube to low intermittent suction. No family at the bedside. December 06: ICU. Intubated. FiO2 35 PEEP of 5. RAYA drain putting out about approximately 120 cc per shift. Patient on IV Precedex. FiO2 35 PEEP of 5. Telemetry-sinus rhythm. Patient occasionally been put on small dose of Levophed specially for hemodialysis getting it today. Also started on midodrine for low blood pressure. Tolerating tube feeding at 10 cc an hour. Also had a bowel movement. Mentation has not improved. Even with sedation holiday. Neurology consulted. CT brain shows no acute process. December 07: ICU. Intubated. FiO2 35 PEEP of 5. Telemetry-sinus rhythm. NG tube to suction low intermittent minimal output. Getting TPN. Tube feeding at 20 cc an hour. RAYA drain averaging over 100 cc per shift. Remains on Precedex. EEG was done today. Discussed with at the bedside. Family is currently not inclined for tracheostomy tube today. Day 13 of being intubated December 08: ICU. Intubated. FiO2 35 PEEP of 5. Patient is put on back on propofol per commission for the blind director Dr. BINGHAM. EEG did show some potential for spikes was put on Keppra by neurology. Telemetry shows sinus rhythm. NG tube to suction with no output. Tube feeding was put on hold because of questionable discharge on the site. Being restarted today. RAYA drain is 150 cc last 12-hour shift. Patient does open eyes. Family has decided to proceed with tracheostomy and surgery has been consulted for the same. Spoke to the at the bedside. For hemodialysis today. December 09: ICU. Intubated FiO2 35 PEEP of 5. Patient seen this morning. Pending tracheostomy placement this afternoon. Remains NPO. G-tube feeding was held overnight. RAYA drain putting out about 100 cc per shift. Received a unit of blood for hemoglobin of 6.6. On 25 mics of propofol. Getting TPN and meropenem. Spoke to the at the bedside. Patient became hypotensive with dialysis yesterday. Levophed had to be given. Only 800 cc were removed yesterday. No hemodialysis today. December 10: ICU . FiO2 35, PEEP 5. Tracheostomy was done yesterday by Dr. Ewing. G-tube feeding was started today at 10 cc an hour. Dietitian following. RAYA drain 12-hour shift overnight put out about 30 cc. Patient hemodialysis to day about 1 L removed. Patient has a sacral stage II decub with a dressing. On propofol 20 mics. Spoke to at the bedside. TPN. Meropenem was discontinued yesterday. December 11: ICU. FiO2 35 PEEP of 5. Tracheostomy. NG tube was discontinued. No hemodialysis today. Telemetry shows sinus rhythm. J-tube feeding at 40 cc an hour. TPN was discontinued. Patient has been off propofol also. PICC line in place. Patient had a EEG done today. Spoke to patient's elder daughter at the bedside. May open eyes occasionally. Not really following commands December 12: 73-year-old white male with history of chronic abdominal pain for the last 8 months has been treated with Protonix 40 mg daily for the last 3 months with no improvement. Patient had a 22 pound weight loss in the last [address] of the abdomen and pelvis 3 weeks ago showed thickening of the antral wall with pathological adenopathy posterior to the stomach suspicious of neoplasm. Today the patient underwent elective upper endoscopy to evaluate further, patient received IV sedation by anesthesia endoscope was inserted into the mouth, esophagus was intubated without any difficulty there was evidence of large amount of liquid and solid food noted in the stomach suggestive of gastric outlet obstruction. Scope could not be advanced through the pylorus, however in the prepyloric area there was a large superficial ulceration identified with multiple biopsies were done from this area. The body cardia and fundus could not adequately visualize because of large amount of retained food in the stomach. Scope was withdrawn back to the stomach and upon careful examination the mucosa of the antrum body and cardia as well as the fundus appeared normal. Procedure was being performed and biopsies were done patient threw up and subsequently became hypoxic there was clearly evidence of witnessed aspiration anesthesia intubated the patient, procedure was terminated, and the patient was transferred to the ICU, this consult was initiated. Patient is now on assist- control rate of 20 tidal volume 500 FiO2 70% PEEP of 10 ABG is pending, earlier ABG showed profound hypoxia patient is on propofol at 50 mcg/kg/min, next ABG is pending. Chest x-ray showed chronic changes without evidence of acute pulmonary disease. 12/14/2023 Patient remains in the ICU, generally weak Patient s/p tracheostomy G-tube in place Patient still has fever and mild tachycardia but tachycardia is improving, leukocytosis improving as well. Hemoglobin 8.1. Creatinine 3.0 and nephrology team on the case. He has mild transaminitis. He was getting Zosyn which is held now, nowCalcitonin is pending 12/14 Patient shon in the ICU, he is still encephalopathic and does not follow command. Neurology service following closely. He is status post tracheostomy. Also J-tube His abdomen looks soft and on exam he has mild coarse secretions. Has a Abarca catheter with clear urine His pro- Calcitonin is still high but trending down 3.0 down to 1.9 No fever this morning WBC slightly less at 16.3 Patient currently off antibiotic He is getting steroids IV Solu-Medrol which might contribute to his leukocytosis. Also he is on IV Keppra by neurologist 12/14 Patient remains confused in the ICU calm, he had a good night per family member and staff. Tracheostomy in place Patient has occasional coughing spells, patient also developed some partial wound dehiscence in his abdomen, surgery team are aware and are going to evaluate the patient Patient also has positive blood culture from 12/13: Gram-positive cocci in clusters. Patient received one-time dose of IV vancomycin. Patient also had fever 2 days ago, leukocytosis and total elevated pro- Calcitonin. Therefore we are going to consult infectious disease team. As his antibiotic Zosyn was stopped few days ago. Currently patient KVO He has good urine output December 16: ICU. Trach. Congested. Requiring suctioning. No hemodialysis today. Getting G-tube feeding at 50 cc an hour. FiO2 30 and a PEEP of 5. On IV Precedex. Eyes open. Does follow commands. Weakness in the limbs. Spoke to at the bedside. Sputum positive for Klebsiella oxytoca and Pseudomonas aeruginosa. December 17: ICU. On trach. Currently cough with increased secretions requiring suctioning. Adding scopolamine patch. Very much clear secretion. CT scan is showing right upper lobe lung abscess. G-tube feeding at 50 cc an hour. Hemodialysis today. RAYA drain putting out about 140 cc a shift. Serous. Has been midline incision wound dehiscence. Wound VAC was placed on it. Stage II ulcer. Patient is on Precedex drip 0.15 mics. Urine output is good about 6200 cc an hour. Spoke to the at the bedside. Patient currently not stable for transfer to LTAC. No limb movements. PT OT on the case. otherwise awake does follow simple commands by face December 17: ICU. Patient seen this afternoon. Because of pain getting IV Dilaudid. No nasal cannula on room air. Does move about his head. Telemetry shows sinus rhythm. FiO2 30 and a PEEP of 5. Patient started on scopolamine patch yesterday has decreased secretions today. Good urine output. Tube fee ding at 60 cc an hour. Wound VAC on incisional would be high since in place. RAYA drain continues to make output. No hemodialysis today Active Medications Acetaminophen (Acetaminophen Tab 325 Mg Tab) 650 mg PO Q4HR PRN PRN Reason: Fever and/ or Pain Last Admin: 12/09/23 20:09 Dose: 650 mg Acetaminophen (Acetaminophen Oral Susp (Peds) 3,840 Mg/120 Ml Bottle) 480 mg PO Q4HR PRN PRN Reason: Fever Albuterol/Ipratropium (Ipratropium-Albuterol 3 Ml Neb) 3 ml INHALATION RT-QID [facility] Last Admin: 12/19/23 19:48 Dose: 3 ml Albuterol/Ipratropium (Ipratropium-Albuterol 3 Ml Neb) 3 ml INHALATION RT-Q2H PRN PRN Reason: Shortness Of Breath Or Wheezing Last Admin: 12/03/23 03:45 Dose: 3 ml Chlorhexidine Gluconate (Chlorhexidine Gluconate 15 Ml Cup) 15 ml MUCOUS MEM BID [facility] Last Admin: 12/19/23 20:14 Dose: 15 ml Darbepoetin Scooby (Darbepoetin Scooby 40 Mcg/0.4 Ml Syringe) 40 mcg SQ Q7D [facility] Last Admin: 12/17/23 07:51 Dose: 40 mcg Dextrose/Water (Dextrose 50% Syringe 50 Ml) 25 ml IVP PER PROTOCOL PRN; Protocol PRN Reason: Hypoglycemia Dextrose/Water (Dextrose 50% Syringe 50 Ml) 50 ml IVP PER PROTOCOL PRN; Protocol PRN Reason: Hypoglycemia Hydromorphone HCl (Hydromorphone 0.5 Mg/0.5 Ml Syringe) 0.25 mg IVP Q3H PRN PRN Reason: Pain Last Admin: 12/19/23 19:25 Dose: 0.25 mg Sodium Chloride (Saline 0.9%) 1,000 mls @ 20 mls/hr IV .Q24H [facility] Last Admin: 12/19/23 18:34 Dose: 20 mls/hr Dexmedetomidine HCl 400 mcg/ (IV Solution) 100 mls @ 4.925 mls/hr IV .[id number] [facility]; Protocol Last Admin: 12/19/23 18:35 Dose: 0.16 mcg/kg/hr, 3.94 mls/hr Piperacillin Sod/Tazobactam (Sod 3.375 gm/ Sodium Chloride) 100 mls @ 25 mls/hr IVPB Q12HR [facility]; Protocol Last Admin: 12/19/23 20:14 Dose: 25 mls/hr Daptomycin 600 mg/ Sodium (Chloride) 50 mls @ 100 mls/hr IVPB Q48H [facility]; Protocol Last Admin: 12/19/23 08:49 Dose: 100 mls/hr Norepinephrine Bitartrate 4 mg (/ Sodium Chloride) 254 mls @ 11.259 mls/hr IV .[id number] [facility]; Protocol Last Admin: 12/19/23 11:29 Dose: Not Given Insulin Aspart (Insulin Aspart (Novolog) 100 Unit/Ml Vial) 0 unit SQ 0000,0600,1200,1800 [facility]; Protocol Last Admin: 12/19/23 18:33 Dose: Not Given Insulin Detemir (Insulin Detemir (Levemir) 100 Unit/Ml Syr) 24 unit SQ DAILY@0700 [facility] Last Admin: 12/19/23 05:46 Dose: 24 unit Levetiracetam (Levetiracetam Iv 500 Mg/5 Ml Vial) 500 mg IVP Q24HR [facility] Last Admin: 12/19/23 08:50 Dose: 500 mg Lorazepam (Lorazepam 2 Mg/Ml Inj) 1 mg IV Q4HR PRN PRN Reason: Anxiety Metoprolol Tartrate (Metoprolol Tartrate 5 Mg/5 Ml Vial) 2.5 mg IVP Q6HR PRN PRN Reason: Heart Rate - HIGH Last Admin: 11/27/23 08:25 Dose: 2.5 mg Midodrine (Midodrine 5 Mg Tab) 5 mg PO AC-TID [facility] Last Admin: 12/19/23 16:37 Dose: Not Given Miscellaneous Information (Magnesium Replacement Protocol 1 Each Misc) 1 each MISCELLANE DAILY PRN; Protocol PRN Reason: Per Protocol Naloxone HCl (Naloxone 0.4 Mg/Ml 1 Ml Vial) 0.2 mg IV Q2M PRN PRN Reason: Opioid Reversal Pantoprazole Sodium (Pantoprazole 40 Mg/10 Ml Vial) 40 mg IVP BID [facility] [facility] Last Admin: 12/19/23 20:14 Dose: 40 mg Petrolatum (Zinc Oxide Paste (Z-Guard) 1 Applic) 1 applic TOPICAL BID [facility]; Protocol Last Admin: 12/19/23 20:15 Dose: 1 applic Scopolamine (Scopolamine 1 Mg/72 Hr Patch) 1 patch TRANSDERM Q72H [facility] Last Admin: 12/18/23 14:24 Dose: 1 patch Past medical history to include: GERD Social history: . No smoking. Physical examination: VITAL SIGNS: 100.2, 91, 28, 92 x 53, 94% on the ventilator GENERAL: Eyes open moving head. Right chest wall port. Congested sounding EYES: Pupils equal. Conjunctiva edouard l. HEENT: External appearance of nose and ears normal, tracheostomy-with secretions NECK: JVD unable to assess; masses not palpable. HEART: First and second heart sounds are normal; edema, present LUNGS: Respiratory rate increased, decreased breath sounds ABDOMEN: Soft, nontender, liver spleen not palpable, no masses palpable..jejunostomy tube-attached to tube feeding . RAYA drain. Incision with stitches with some midline breakdown with wound VAC PSYCH: Unable to assess NEURO: Not able to move limbs. Eyes open. Moves head INVESTIGATIONS, reviewed in the clinical context: December 18: White count 14.8 hemoglobin 7.2 platelets 248 potassium 4.1 BUN [address] chest abdomen without contrast [December 16] right upper lung cavitary lesion with air-fluid level in the posterior aspect and a larger cavitary lesion possibly within the lung parenchyma itself. Extending down towards the diaphragm additional airspace opacities in the left lung base. December 17: White count 12.5 hemoglobin 7.3 platelets 275 sodium 147 potassium 3.4 BUN 116 creatinine 2.68 December 16: White count 6.2 hemoglobin 7.1 platelets 237 sodium 143 potassium 3.7 BUN 109 creatinine 2.68 December 11: White count 7.9 hemoglobin 7.4 platelets 151 sodium 133 potassium 4 BUN 88 creatinine 2.96 December 10: White count 21.3 hemoglobin 7.4 platelets 129 potassium 4.2 BUN 111 creatinine 3.77 December 09: White count 26.1 hemoglobin 8.6 platelets 154 potassium 4.1 BUN 86 creatinine 3.31. Hemoglobin this morning was 6.6 prior to transfusion EEG-evidence of generalized cerebral dysfunction and sporadic intermittent higher amplitude sharply contoured waves mainly bifrontal. Showing cortical irritability. 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 Serosal fibrous adhesions. Viable margins. December 04: White count 10.2 hemoglobin 8 platelets 90 sodium 130 potassium 4 BUN 70 creatinine 2.89 Sputum culture: [November 25]: Citrobacter freundii. Pseudomonas aeruginosa November 20: White count 14.4 hemoglobin 8.8 platelets 229 potassium 4.1 BUN [address] scan abdomen [November 19] possible small bowel obstruction Stool: C. difficile negative November 15: WBC 13 hemoglobin 7.7 platelets 248 potassium 4.3 creatinine 0.87 2D echo: EF 55 to 60%. Kidneys bladder: Unremarkable November 13: White count 12 hemoglobin 6.9 platelets 276 potassium 4.4 creatinine 1.21 magnesium 1.8 iron 6 TIBC 365% saturation 1.64 transferrin 261 ferritin 34.6 B12 569 folate 4.4 November 11: Creatinine 0.86 EGD: Large amount of retained solid liquid food noted in the stomach. Large superficial gastric antral ulceration involving most of the antrum extending into the pylorus causing pyloric stenosis. Biopsies were obtained. Chest x-ray film personally reviewed by me-scattered infiltrates Assessment plan: -Aspiration pneumonitis bilateral from retained gastric contents mostly food and liquids, causing acute hypoxic respiratory failure: On presentation: Subsequent sputum culture November 25: Citrobacter freundii, Pseudomonas aeruginosa. December 13: Klebsiella oxytoca, Pseudomonas aeruginosa IV meropenem-was received originally. Now receiving IV daptomycin and IV Zosyn. Pulmonary following -Probable lung abscess larger 1 on the right side-patient cultures are growing Pseudomonas and Klebsiella oxytoca Continue IV Zosyn -Acute pulmonary edema and fluid overload from hypoalbuminemic state and fluids from IV.:: Has been getting Lasix and dialysis -Altered mentation. Possibly encephalopathy. Could be delirium. CT brain [December 06] nothing acute Neurology following EEG-evidence of generalized cerebral dysfunction and sporadic intermittent higher amplitude sharply contoured waves mainly bifrontal. Showing cortical irritability. Keppra was started on December 07 -Critical care poly- Pedro neuropathy PT OT -Gallstones, asymptomatic -Small l bowel perforation at site of jejunostomy tube tip with balloon..: Portion of small bowel resected. On November 24. New J-tube was placed.- drainage to gravity:-Now discontinued -Acute kidney injury. Possible ATN from hypotensive shock: Slow to respond Renal ultrasound unremarkable. Started on renal replacement therapy on November 28. Followed by nephrology -Nutrition Jejunostomy tube placed November [address] Ewing Getting TPN. Tube feeding at 50 cc an hour -Midline abdominal incision wound dehiscence Wound VAC placed -Acute recurrent atrial fibrillation-converted to sinus rhythm Received IV amiodarone. Cardiology following Lopressor -Acute hypoxic respiratory failure from aspiration pneumonia, status post ventilator assisted: Reintubated November 25. FiO2 35 PEEP of 5 Tracheostomy tube-by Dr. Zepeda on December 09 -Septic shock, recovered -Hypertension Patient started on Cleviprex-discontinued -Intermittent hypotension Intermittent use of Levophed. 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 Also anemia of blood draw. Iron deficiency anemia Received 3rd unit of blood . IV iron. -Severe thrombocytopenia. Would consider coagulation disorder secondary to infection., In the setting of underlying lymphoma.: Recovered Hematology following. -Acute blood loss anemia, Has received 3 units of blood -Sacral stage II decub ulcer Dressing in place -GERD PPI -Acute diarrhea secondary to tube feeding.: Resolved C. difficile ruled out. -Large superficial gastric antral ulceration involving the gastric antrum extending into the pylorus with gastric outlet obstruction. 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 Port placed. For outpatient PET scan. -Full code Spoke to the at the bedside. Continue current treatment plan. Including antibiotics. Prognosis remains guarded. Follow with multiple consultants. Past Medical History Past Medical History: GERD/Reflux History of Any Multi-Drug Resistant Organisms: None Reported Past Surgical History: Heart Catheterization Additional Past Surgical History / Comment(s): colonsocopy,spinal injection, Past Anesthesia/Blood Transfusion Reactions: No Reported Reaction Past Psychological History: No Psychological Hx Reported Smoking Status: Never smoker Past Alcohol Use History: None Reported Past Drug Use History: None Reported
[2023-12-20 00:15] LABS: Glucose,Whole Blood 151 mg/dL (70-110)
[2023-12-20] MEDS: ACETAMINOPHEN IV (For NPO) 1,000 MG in EMPTY BAG 1 BAG IVPB ONE (02:40)
[2023-12-20 05:06] LABS: ABG Base Excess 1.4 mmol/L; ABG HCO3 25 mmol/L (21-25); ABG Oxygen Saturation 95.7 % (94-97); ABG PCO2 33 mmHg (35-45); ABG PH 7.49 (7.35-7.45); ABG PO2 73 mmHg (83-108); ABG TCO2 26 mmol/L (19-24); Allen Test Performed? Yes
[2023-12-20 05:43] LABS: Anisocytosis Slight; Basophils % (A) 0 %; Eosinophils # (A) 0.1 k/uL (0-0.7); Eosinophils % (A) 1 %; HCT 23.6 % (39.0-53.0); HGB 7.2 gm/dL (13.0-17.5); Hypochromasia Marked; Lymphocytes # (A) 1.7 k/uL (1.0-4.8); Lymphocytes % (A) 12 %; MCH 27.3 pg (25.0-35.0); MCHC 30.4 g/dL (31.0-37.0); MCV 89.8 fL (80.0-100.0); Mean Platelet Volume 8.5; Monocytes # (A) 0.4 k/uL (0-1.0); Monocytes % (A) 3 %; Neutrophils # (A) 11.4 k/uL (1.3-7.7); Neutrophils % (A) 83 %; Platelet Count 203 k/uL (150-450); RBC 2.63 m/uL (4.30-5.90); WBC 13.7 k/uL (3.8-10.6)
[2023-12-20 05:53] LABS: African American GFR (CKD) 40 (>60 ml/min/1.73 sqM); Anion Gap 6 mmol/L; Blood Urea Nitrogen 88 mg/dL (9-20); Carbon Dioxide 22 mmol/L (22-30); Chloride 113 mmol/L (98-107); Glucose 93 mg/dL (74-99); Non-African American GFR(CKD) 35 (>60 ml/min/1.73 sqM); Potassium 4.1 mmol/L (3.5-5.1); Sodium 141 mmol/L (137-145)
[2023-12-20 05:54] LABS: Glucose,Whole Blood 91 mg/dL (70-110)
--- NOTE | 2023-12-20 07:23 | XR ---
EXAMINATION TYPE: XR chest 1V portable DATE OF EXAM: 12/20/2023 5:44 AM CLINICAL INDICATION: Male, 73 years old with history of mechanical ventilation; [facility] COMPARISON: Chest radiograph from one day prior. TECHNIQUE: XR chest 1V portable Frontal view of the chest. FINDINGS: Lungs/Pleura: Right apical cavitary lesion unchanged from prior. No evidence of focal consolidation o r pneumothorax. Blunting of the costophrenic angles is present. Pulmonary vascularity: Unremarkable. Heart/mediastinum: Cardiomediastinal silhouette is unremarkable. Musculoskeletal: No acute osseous pathology. Other findings: None Lines/Tubes: Tracheostomy cannula tip projecting over the trachea. [id number] projecting over the right hemithorax with distal tip at the cavoatrial junction. Left-sided PICC with distal tip at the superior vena cava/brachiocephalic confluence. IMPRESSION: Stable exam with mild right apical cavitary lesion and consolidation changes as seen on CT. [facility], , 12/20/2023 7:21 AM
[2023-12-20] MEDS ORDERED: ZINC OXIDE 20% OINT 28.4 GM TUBE TOPICAL PRN (11:23)
[2023-12-20 12:14] LABS: Glucose,Whole Blood 111 mg/dL (70-110)
--- NOTE | 2023-12-20 12:19 | P.PN ---
Subjective Progress Note Date: 12/19/23 12/19/2023: Patient was seen for a follow-up. Patient's and patient's daughter were present today. Patient is clinically unchanged. Continues to be very weak in the arms and legs. 12/18/2023: Patient was seen for a follow-up. Patient is much more alert and awake. He is off sedation. Please refer to examination below. 12/17/2023: Patient was seen for a follow-up. Patient's was also present, who believes that patient is doing better. Patient is nodding appropriately. He is still very weak in the arms and legs, not able to follow directions otherwise. Patient nods "no" for headache. Patient has tracheostomy. 12/16/2023: Patient was seen for a follow-up. Patient is laying in the bed, severely encephalopathic. Patient now has tracheostomy. Patient currently on Precedex 0.2 mcg/kg/h. Also on vancomycin. Patient getting hemodialysis as of now. 12/08/2023: Patient was seen for a follow-up. Patient's was also present. Per nursing report, with sedation holiday, patient opens eyes, but does not follow commands, does not track. Does not even response to yes/no questions. Patient does move right arm sometimes. Patient starts desynchronized ventilation therefore has to be put back on Precedex. Patient currently on Precedex 0.6 g per program per hour. Objective - Vital Signs Vital signs: Vital Signs Temp 100.2 F H 12/19/23 12:00 Pulse 96 12/19/23 15:19 Resp 30 H 12/19/23 13:00 BP 88/51 12/19/23 13:00 Pulse Ox 95 12/19/23 13:00 FiO2 30 12/19/23 15:01 Intake & Output 12/18/23 12/19/23 12/19/23 18:59 06:59 18:59 Intake Total 6883.072 7341 178.031 Output Total 1215 760 450 Balance 703.013 800 -271.969 Weight 99.3 kg 98 kg Intake: IV 120 130 60 0.9 KVO 120 130 60 Intake, IV Titration 293.013 118.031 Amount DAPTOmycin 600 mg In 50 Sodium Chloride 0.9% 50 ml @ 100 mls/hr IVPB Q48H [facility] Rx#:[id number] Dexmedetomidine/0.9% NaCl 93.013 68.031 (Pmx) 400 mcg In Empty Bag 1 bag @ 0.2 MCG/KG/HR 4.925 mls/hr IV .[id number] [facility] Rx#:[id number] Potassium Chloride 20 meq 200 In Water For Injection 1 100ml.bag @ 50 mls/hr IVPB ONCE ONE Rx#: [id number] Tube Feeding 650 780 Hemodialysis 500 Other 355 650 Output: Drainage 135 125 Right Abdomen 135 125 Urine 580 635 450 Hemodialysis 22 Hemodialysis Net Amount 478 Other: Voiding Method Indwelling Catheter Indwelling Catheter Indwelling Catheter # Bowel Movements 1 1 1 ABP, PAP, CO, CI - Last Documented Arterial Blood Pressure 139/59 - Exam On examination patient is laying in the bed. Patient is intubated, with tracheostomy. Patient is off sedation. Patient is still encephalopathic. He sometimes nods appropriately. Pupils are equal, round and reacting. Oculocephalics are inhibited. Corneals are present. Patient is breathing over the ventilator. Patient sometimes move his right arm, also moves his head [id number]. Patient very weak. Patient has some gross movement of the hip on command. Not able to move his fingers or the feet. Reflexes are absent at brachioradialis, knees and ankles bilaterally, whereas trace to 1 at the right biceps, and trace at the left biceps. Plantars are flat. Patient has lot of muscle wasting apparent because of the flabby skin. - Labs CBC & Chem 7: 12/20/23 05:25 12/20/23 05:25 Labs: Abnormal Lab Results - Last 24 Hours (Table) 12/18/23 12/18/23 12/18/23 Range/Units 18:25 23:32 23:46 WBC (3.8-10.6) k/uL RBC (4.30-5.90) m/uL Hgb (13.0-17.5) gm/dL Hct (39.0-53.0) % RDW (11.5-15.5) % Neutrophils # (1.3-7.7) k/uL ABG pH 7.49 H (7.35-7.45) ABG pCO2 32 L (35-45) mmHg ABG Total CO2 25 H (19-24) mmol/L ABG O2 Saturation 97.7 H (94-97) % Hemoglobin 6.9 L* (13.0-17.5) gm/dL Chloride (98-107) mmol/L Carbon Dioxide (22-30) mmol/L BUN (9-20) mg/dL Creatinine (0.66-1.25) mg/dL Glucose (74-99) mg/dL POC Glucose (mg/dL) 144 H 223 H (70-110) mg/dL Calcium (8.4-10.2) mg/dL 12/19/23 12/19/23 12/19/23 Range/Units 05:34 05:34 05:35 WBC 14.8 H (3.8-10.6) k/uL RBC 2.58 L (4.30-5.90) m/uL Hgb 7.2 L (13.0-17.5) gm/dL Hct 22.7 L (39.0-53.0) % RDW 18.9 H (11.5-15.5) % Neutrophils # 12.6 H (1.3-7.7) k/uL ABG pH (7.35-7.45) ABG pCO2 (35-45) mmHg ABG Total CO2 (19-24) mmol/L ABG O2 Saturation (94-97) % Hemoglobin (13.0-17.5) gm/dL Chloride 111 H (98-107) mmol/L Carbon Dioxide 21 L (22-30) mmol/L BUN 80 H (9-20) mg/dL Creatinine 1.93 H (0.66-1.25) mg/dL Glucose 193 H (74-99) mg/dL POC Glucose (mg/dL) 214 H (70-110) mg/dL Calcium 7.1 L (8.4-10.2) mg/dL 12/19/23 Range/Units 11:30 WBC (3.8-10.6) k/uL RBC (4.30-5.90) m/uL Hgb (13.0-17.5) gm/dL Hct (39.0-53.0) % RDW (11.5-15.5) % Neutrophils # (1.3-7.7) k/uL ABG pH (7.35-7.45) ABG pCO2 (35-45) mmHg ABG Total CO2 (19-24) mmol/L ABG O2 Saturation (94-97) % Hemoglobin (13.0-17.5) gm/dL Chloride (98-107) mmol/L Carbon Dioxide (22-30) mmol/L BUN (9-20) mg/dL Creatinine (0.66-1.25) mg/dL Glucose (74-99) mg/dL POC Glucose (mg/dL) 151 H (70-110) mg/dL Calcium (8.4-10.2) mg/dL Microbiology - Last 24 Hours (Table) 12/14/23 09:55 Anaerobic Culture - Final Abdomen Bacteroides thetaiotaomicron Assessment and Plan Assessment: * Altered mental status, likely due to toxic metabolic encephalopathy, severe * Abnormal EEG, with severe encephalopathy. 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 Patient has trace to 1 reflexes at the biceps, but absent elsewhere. [place] Ventura syndrome appears less likely. Plan: * Patient continues to have severe weakness of the arms and legs. 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 Critical care team are considering IVIG. However patient's renal functions are moderately reduced, and IVIG can make renal functions worse. If needed, will need nephrology clearance. I would also recommend lumbar puncture prior to considering IVIG. Discussed with critical care team. Also discussed with patient's family. * Stat EEG was performed on 12/08/2023: It revealed generalized slowing of severe degree. This is suggestive of generalized cerebral dysfunction as can be seen with toxic metabolic encephalopathy or related to diffuse structural brain about a day. Clinical correlation is recommended. Sporadic, periodic generalized sharp-appearing waves were seen. This may suggest underlying cortical irritability. No electrographic seizure was recorded. * Therefore, empirically started on Keppra 500 mg daily. May discontinue Keppra, once mentation comes back to normal. * Repeat EEG on 12/12/2023: Is abnormal. The study is limited because of diffuse myogenic artifact. The background slowing is suggestive of severe encephalopathy. Otherwise no focal slowing, epileptiform discharges or seizure on the EEG. * CT head performed 12/07/2023 revealed no acute intracranial process. Some atrophy. I personally reviewed CT head agree with the findings. * Patient is generalized weak. Patient has been ICU for extended period of time. At risk for critical illness myopathy. * Patient currently on daptomycin and Zosyn. ID following. * For medical management as per critical care and other specialties on board. * Patient continues to be very weak in the muscles, distally and proximally.
--- NOTE | 2023-12-20 12:58 | P.PN ---
Subjective Progress Note Date: 12/20/23 On today's evaluation of 12/16/2023, the patient is being seen for a follow-up. The patient has been off propofol since 12/11/2023. He is requiring on and off Ativan and Dilaudid for pain control. He is not following any commands. He opens his eyes occasionally and he moves his head and thrashes. I have recommended starting him on Precedex to control his restlessness and agitation. Meanwhile, the patient is on assist-control mode of mechanical ventilation at rate of 20, tidal volume of 500, FiO2 of 30% with a PEEP of 5. Blood gas showed a pH of 7.51 with a pCO2 of 31 and pO2 of 73. Chest x-ray showing a tracheostomy tube being in the upper trachea. It is projecting over the trachea. The patient has a port in his right IJ there is also an right apical cavity that is formed over the past 1 week. There is residual consolidation and small bilateral pleural effusions. Noted the patient was given CPAP trials over the past 24 to 48 hours and he has failed due to increased tachypnea. Sharon nwhile, he is sodium levels at 141 with a BUN of 131 and creatinine of 3.4. Serum bicarb is at 27. WBC count is at 18.9 with a hemoglobin 7.1 and a platelet count of 238. Urine output is in order of 70 cc an hour. He has adequate output from his ileostomy. The abdominal wound is dehisced and there is evidence of an old infection with some purulent secretion from the wound surface in its midportion. The patient is receiving J-tube feeding and is receiving Nepro at rate of 50 cc an hour in addition to 50 cc of fluid flush on an hourly basis to prevent any clogging. He was spiking temperature over the past 24 hours. Tmax was 1101.1 F and the patient was started on a combination of Zosyn and vancomycin pending further cultures. Wound cultures have been obtained. Blood cultures also been obtained. Hemodynamically stable on no pressors. Nephrology on the case regarding his renal failure. The patient will try to get hemodialysis today. 12/17/2023, the patient is being seen for a follow-up. This morning, the patient is awake and is following simple commands only. He is profoundly weak. He remains on Precedex which is currently running at 0.2 mcg/kg/h. The patient is on assist-control motorcycle mechanical ventilation with a tidal volume of 500, rate of 20, FiO2 of 30% and PEEP of 5. Blood gas showed a pH of 7.45 with a pCO2 of 24 and pO2 of 90. Chest x-ray shows extensive cavitation in the right upper lobe with a cavitating pneumonia/infiltrate. There is also lower lobe consolidation and effusions. The patient is having scant respiratory secretions. The culture was positive for Pseudomonas aeruginosa and the patient remains on IV Zosyn. Meanwhile, the patient is on normal saline at rate of 20 cc an hour. No pressors and the patient is hemodynamically stable. The patient is on Nepro 50 cc an hour. The patient is producing adequate amount of urine ou tput in the order of 60 cc an hour. Last hemodialysis session was done yesterday. This was successful without any hemodynamic alteration. The white cell count is 16.2 with a hemoglobin 7.1 and a platelet count of 277. The patient's electrolytes show a sodium level of 143, potassium of 3.7, chlorides 109 and a bicarb of 26 with a BUN of 109 and a creatinine of 2.6. Stool for C. difficile has been negative. This morning, the patient is afebrile. Family at the bedside. Abdominal wound is well-dressed and the RAYA drain is serosanguineous. On today's evaluation of 12/18/2023, the patient is being seen for a follow-up. Awake and communicating and following commands. Nevertheless, profoundly weak, unable to move all of his extremities at this point in time. He is able to communicate by facial expression and sometimes he tries to talk. He remains on low-dose Precedex which is running at 0.2 mcg/kg/h. He is currently on pressure control mode of mechanical ventilation with a pressure control of 20, rate of 20, FiO2 30% with a PEEP of 5. pH is 7.56 with a pCO2 of 27 and pO2 of 91. The patient is undergoing hemodialysis this morning. Urine output is adequate at 75 cc an hour and the patient is on Nepro at rate of 50 cc an hour. CAT scan of the abdomen and pelvis was done yesterday. CAT scan of the chest showed extensive cavitating pneumonia involving the right lung and there is a cavitating lesion in the posterior aspect of the right upper lobe with a fluid- filled cavity/abscess. There is also opacity throughout the right lung and the left lung and this is consistent with gram-negative/pseudomonal pneumonia. There is postsurgical changes anterior abdominal wall with subcutaneous gas. No organizing fluid or collection. Also, the patient has cholelithiasis. J-tube is in good location. The patient has a wound VAC covering the anterior abdominal wall. WBC count is at 12 with a hemoglobin 7.3 and a platelet count of 275. Sodium is 147, potassium 3.4, chloride 113 bicarb is 23 BUN is 116 with a creatinine of 2.6. Antibiotic coverage remains unchanged and the patient remains on IV Zosyn. He is on Adalat 40 mg subcu every 1 week. He is on Levemir insulin 24 units daily along with NovoLog sliding scale coverage. He remains on low-dose Solu-Medrol 20 mg IV every 24 hours. 12/19/2023, the patient essentially the same as yesterday, clinically unchanged remains on Precedex running at 0.15 mcg/kg/min. Able to communicate by facial expression. Unable to move any of his extremities along or against gravity. Reflexes are diminished in all 4 extremities. Remains on pressure control of 15 cm of water with rate of 16, FiO2 of 30% with a PEEP of 5. Blood gas shows a pH of 7.49 with a pCO2 of 32 and pO2 of 91. Hemodynamically stable. Still on Nep ro at rate of 60 cc an hour. Hemodialysis was done yesterday and the patient is producing more than 40 cc an hour of urine output. BUN is 18 with a creatinine of 1.9. Sodium is at 140. The white cell count of 14.8 with a hemoglobin of 7.2 and a platelet count of 247. The patient is afebrile. The patient remains on same antibiotic coverage. Chest x-ray remains unchanged as the patient has a cavitating pneumonia involving the right upper lobe and the right lung fluid- filled cavity/abscess. Respiratory secretions noted. Active. The patient has limited complaints. Remains on mechanical ventilator. No other significant events overnight. Wound VAC is still in place. 12/20/2023, the patient is being seen for a follow-up. More alert and awake compared to yesterday. He is able to move his fingers and toes on today's evaluation. Following commands. Nevertheless, his J tube has been clogged and was unable to utilize the tube that has been some leaks around the tube. No abdominal distention. No nausea or emesis. Hemodynamically stable. Will undergo hemodialysis today. He remains on pressure control mode of mechanical ventilation at rate of 16, pressure of 10, +5 PEEP with an FiO2 of 30%. Chest x-ray from today is essentially unchanged with a stable cavity in his right upper lobe. White cell count of 15.7, hemoglobin 7.2, platelet count is 203, blood gas showed a pH of 7.49 with a pCO2 of 33 and pO2 of 73. BUN is 88 with a creatinine 1.89 and sodium is at 141 with a potassium level of 4.1. He is producing adequate amount of urine output. Fluid balance has been -900 cc over the past 24 hours. Normotensive. Remains on a combination of Zosyn and daptomycin. Remains on Levemir insulin 24 units daily. This is currently on hold as the patient has not been able to obtain enteral feeding. Wound VAC still in place. Objective - Vital Signs Vital signs: Vital Signs Temp 98.9 F 12/20/23 08:00 Pulse 81 12/20/23 08:29 Resp 23 12/20/23 08:00 BP 83/57 12/20/23 08:00 Pulse Ox 96 12/20/23 08:00 FiO2 30 12/20/23 08:00 Intake & Output 12/19/23 12/20/23 12/20/23 18:59 06:59 18:59 Intake Total 262.328 610 30 Output Total 970 870 195 Balance -707.672 -260 -165 Weight 97.5 kg Intake: IV 120 170 30 0.9 KVO 120 70 30 Piperacillin-Tazobactam 3 100 .375 gm In Sodium Chloride 0.9% 100 ml @ 25 mls/hr IVPB Q8HR [facility] Rx# :[id number] Intake, IV Titration 142.328 Amount DAPTOmycin 600 mg In 50 Sodium Chloride 0.9% 50 ml @ 100 mls/hr IVPB Q48H [facility] Rx#:[id number] Dexmedetomidine/0.9% NaCl 92.328 (Pmx) 400 mcg In Empty Bag 1 bag @ 0.2 MCG/KG/HR 4.925 mls/hr IV .[id number] [facility] Rx#:[id number] Tube Feeding 240 Other 200 Output: Drainage 100 80 Right Abdomen 100 80 Urine 870 870 115 Other: Voiding Method Indwelling Catheter Indwelling Catheter Indwelling Catheter # Bowel Movements 1 ABP, PAP, CO, CI - Last Documented Arterial Blood Pressure 139/59 - Exam No acute distress, arousable on Precedex and following simple commands, comfortable, still on the mechanical ventilator. HEENT examination is grossly unremarkable. Mucous membranes are moist. No oral lesions.. The patient also has a tracheostomy tube in place and the patient has a #8 Shiley tracheostomy tube. Cardiac exam revealed the PMI to be normally situated and sized. The rhythm was regular and no extrasystoles were noted during several minutes of auscultation. The first and second heart sounds were normal and physiologic splitting of the second heart sound was noted. There were no murmurs, rubs, clicks, or gallops. The patient is in sinus tachycardia. Lungs reveal mild scattered rhonchi. No wheezes or crackles. Breath sounds equal. Diminished breath sound lung base bilaterally. Abdomen distended without bowel sounds. J-tube is noted. Mid abdominal wound is dehisced and it is opened in its midportion for approximately 2 cm with purulent drainage at the wound surface. Patient also has a RAYA drain in place and output is serosanguineous. Extremities are intact. No cyanosis clubbing trace edema lower extremities bilaterally Skin is without rash or lesion. The wound at the Mediport site is dry and the area has been sutured and the site is clean for now. Neurologic examination is brief but nonfocal. - Labs CBC & Chem 7: 12/20/23 05:25 12/20/23 05:25 Labs: Abnormal Lab Results - Last 24 Hours (Table) 12/19/23 12/19/23 12/20/23 Range/Units 11:30 18:32 00:13 WBC (3.8-10.6) k/uL RBC (4.30-5.90) m/uL Hgb (13.0-17.5) gm/dL Hct (39.0-53.0) % MCHC (31.0-37.0) g/dL RDW (11.5-15.5) % Neutrophils # (1.3-7.7) k/uL ABG pH (7.35-7.45) ABG pCO2 (35-45) mmHg ABG pO2 (83-108) mmHg ABG Total CO2 (19-24) mmol/L Hemoglobin (13.0-17.5) gm/dL Chloride (98-107) mmol/L BUN (9-20) mg/dL Creatinine (0.66-1.25) mg/dL POC Glucose (mg/dL) 151 H 132 H 151 H (70-110) mg/dL Calcium (8.4-10.2) mg/dL 12/20/23 12/20/23 12/20/23 Range/Units 00:17 05:25 05:25 WBC 13.7 H (3.8-10.6) k/uL RBC 2.63 L (4.30-5.90) m/uL Hgb 7.2 L (13.0-17.5) gm/dL Hct 23.6 L (39.0-53.0) % MCHC 30.4 L (31.0-37.0) g/dL RDW 19.0 H (11.5-15.5) % Neutrophils # 11.4 H (1.3-7.7) k/uL ABG pH 7.49 H (7.35-7.45) ABG pCO2 33 L (35-45) mmHg ABG pO2 73 L (83-108) mmHg ABG Total CO2 26 H (19-24) mmol/L Hemoglobin 7.4 L (13.0-17.5) gm/dL Chloride 113 H (98-107) mmol/L BUN 88 H (9-20) mg/dL Creatinine 1.89 H (0.66-1.25) mg/dL POC Glucose (mg/dL) (70-110) mg/dL Calcium 7.0 L (8.4-10.2) mg/dL Assessment and Plan Plan: Acute hypoxemic respiratory failure with failure to wean from mechanical ventilation, S/P tracheostomy on December 10, 2023. The patient has bilateral pneumonia with a cavitary infiltrate in the right upper lobe, secondary to Pseudomonas and the patient is currently on IV Zosyn. Patient is afebrile hemodynamically stable this morning. CAT scan of the chest done on 12/17/2023 was reviewed and the patient has a cavitating cyst/abscess in the posterior aspect of the right upper lobe in addition to patchy opacities bilaterally right more than left consistent with pneumonia,/gram-negative pneumonia attributed to Pseudomonas and Klebsiella. Respiratory status is stable and the patient remains on a pressure control mode of mechanical ventilation. Hospital-acquired right lung pseudomonal/Klebsiella pneumonia. Patient is currently on IV Zosyn. 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 Small bowel perforation with abdominal contamination. The patient is status post expiratory laparotomy and small bowel resection and insertion of another jejunostomy tube. The patient jejunostomy is not functional and is clogged. However, the abdominal wound is dehisced and is infected. RAYA drain output is serosanguineous. A wound VAC was applied to the anterior abdominal wall. Peritonitis secondary to above Septic shock secondary to above, the patient is currently off pressors Atrial fibrillation with rapid medical response, currently back into normal si nus rhythm . Acute kidney injury, currently hemodialysis dependent and the patient is a dialysis cath in his left femoral vein. Hemodialysis was done on 12/18/2023, hemodialysis to be done today History of acute aspiration during upper endoscopy most likely secondary to gastric outlet obstruction secondary to non-Hodgkin's lymphoma. weight loss most likely secondary non-Hodgkin's lymphoma involving the stomach. Anemia of chronic disease, multifactorial Encephalopathy, multifactorial, could be drug related/sepsis related, essentially a component of metabolic encephalopathy, improving and the patient is currently on low-dose Precedex and the patient is communicating and following simple commands Profound weakness in all 4 extremities and the patient is unable to move at this point in time. Motor function 0 out of 5 in all 4 extremities. Positive cough. Positive gag. 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 Plan Continue ventilator support. No changes in the mechanical ventilator Continue IV Zosyn Continue daptomycin Stop enteral feeding and ask general surgery to reevaluate the J-tube Hemodialysis to be done today Monitor fever pattern General Surgery is on the case regarding abdominal wound PT for passive range of motion Condition remains extremely critical with poor prognosis based on the above Will continue to follow this patient along with the rest of the consultants. Condition is critical over the poor outcome based on the above. Evaluation was done more than 30 minutes. Time with Patient: Greater than 30
--- NOTE | 2023-12-20 13:34 | P.PN ---
Subjective Patient is seen for follow-up for acute kidney injury. Maintained on Precedex. Urine output at 50-60 mL per hour. Mentation has improved. Patient is following commands. Objective - Vital Signs Vital signs: Vital Signs Temp 98.9 F 12/20/23 08:00 Pulse 85 12/20/23 12:35 Resp 29 H 12/20/23 11:00 BP 86/56 12/20/23 11:00 Pulse Ox 93 L 12/20/23 11:00 FiO2 30 12/20/23 11:53 Intake & Output 12/19/23 12/20/23 12/20/23 18:59 06:59 18:59 Intake Total 262.328 610 50 Output Total 970 870 270 Balance -707.672 -260 -220 Weight 97.5 kg 97.5 kg Intake: IV 120 170 50 0.9 KVO 120 70 50 Piperacillin-Tazobactam 3 100 .375 gm In Sodium Chloride 0.9% 100 ml @ 25 mls/hr IVPB Q8HR [facility] Rx# :[id number] Intake, IV Titration 142.328 Amount DAPTOmycin 600 mg In 50 Sodium Chloride 0.9% 50 ml @ 100 mls/hr IVPB Q48H [facility] Rx#:[id number] Dexmedetomidine/0.9% NaCl 92.328 (Pmx) 400 mcg In Empty Bag 1 bag @ 0.2 MCG/KG/HR 4.925 mls/hr IV .[id number] [facility] Rx#:[id number] Tube Feeding 240 Other 200 Output: Drainage 100 80 Right Abdomen 100 80 Urine 870 870 190 Other: Voiding Method Indwelling Catheter Indwelling Catheter Indwelling Catheter # Bowel Movements 1 ABP, PAP, CO, CI - Last Documented Arterial Blood Pressure 139/59 - Exam patient is on the vent. He is awake and responds appropriately. Mentation has improved Examination of the heart S1 and S2 Examination of the lungs bilateral breath sounds are heard Abdomen is soft dressed, RAYA drain noted Examination of lower extremities shows no significant edema in the legs. 1+ edema noted in bilateral upper extremities. - Labs CBC & Chem 7: 12/20/23 05:25 12/20/23 05:25 Labs: Abnormal Lab Results - Last 24 Hours (Table) 12/19/23 12/20/23 12/20/23 Range/Units 18:32 00:13 00:17 WBC (3.8-10.6) k/uL RBC (4.30-5.90) m/uL Hgb (13.0-17.5) gm/dL Hct (39.0-53.0) % MCHC (31.0-37.0) g/dL RDW (11.5-15.5) % Neutrophils # (1.3-7.7) k/uL ABG pH 7.49 H (7.35-7.45) ABG pCO2 33 L (35-45) mmHg ABG pO2 73 L (83-108) mmHg ABG Total CO2 26 H (19-24) mmol/L Hemoglobin 7.4 L (13.0-17.5) gm/dL Chloride (98-107) mmol/L BUN (9-20) mg/dL Creatinine (0.66-1.25) mg/dL POC Glucose (mg/dL) 132 H 151 H (70-110) mg/dL Calcium (8.4-10.2) mg/dL 12/20/23 12/20/23 12/20/23 Range/Units 05:25 05:25 12:12 WBC 13.7 H (3.8-10.6) k/uL RBC 2.63 L (4.30-5.90) m/uL Hgb 7.2 L (13.0-17.5) gm/dL Hct 23.6 L (39.0-53.0) % MCHC 30.4 L (31.0-37.0) g/dL RDW 19.0 H (11.5-15.5) % Neutrophils # 11.4 H (1.3-7.7) k/uL ABG pH (7.35-7.45) ABG pCO2 (35-45) mmHg ABG pO2 (83-108) mmHg ABG Total CO2 (19-24) mmol/L Hemoglobin (13.0-17.5) gm/dL Chloride 113 H (98-107) mmol/L BUN 88 H (9-20) mg/dL Creatinine 1.89 H (0.66-1.25) mg/dL POC Glucose (mg/dL) 111 H (70-110) mg/dL Calcium 7.0 L (8.4-10.2) mg/dL Assessment and Plan Assessment: 1. Acute kidney injury secondary to ATN secondary to septic shock. Creatinine 0.86 on admission and up to 5.38 dated November 29, 2023. nonoliguric. UA fairly benign. No hydronephrosis noted on imaging. Started hemodialysis on for worsening volume status and acute kidney injury. We will monitor for recovery of renal function. 2. Perforated small bowel status post exploratory laparotomy with abdominal washout, small bowel resection and J-tube replacement November 25, 2023. 3. A-fib with RVR. s/p amiodarone drip. Also received digoxin this admission. 4. Recently diagnosed gastric B-cell lymphoma. 5. Septic shock. Likely abdominal source. On IV antibiotics. Off vasopressors now. 6. Hypocalcemia secondary to acute kidney injury. Replaced. Improved. 7. Metabolic acidosis secondary to acute kidney injury. Improved. 8. Volume overload, improved significantly. Plan: hold hemodialysis today. Reassess in a.m. continue with antibiotics Continue Francheska
--- NOTE | 2023-12-20 14:52 | P.PN ---
Subjective Progress Note Date: 12/20/23 Principal diagnosis: Reason for follow-up is pneumonia and bacteremia Patient is 73-year-old with male initial presentation to the hospital on 11/11/2021 for after the patient did have aspiration while undergoing elective endoscopy, diagnosed with a non-Hodgkin of, subsequently did have explained laparotomy for perforated small bowel abdominal washout and feeding jejunostomy tube patient did require dialysis catheter placement for dialysis during this hospital stay and tracheostomy for respiratory failure, infectious was consulted for fever. On today's evaluation that is 12/20/2023,the patient did spike a fever last night of 101.2 F the patient is afebrile since then the patient blood pressure is borderline but not requiring any pressor support FiO2 is currently stable at 30% no significant purulent secretion through the ET apparently his NG tube is not working and the patient seem to have issues with some abdominal pain as well as reported by the nursing staff. Patient white count is slightly down to 13.7 creatinine is 1.89 Objective - Vital Signs Vital signs: Vital Signs Temp 98.9 F 12/20/23 08:00 Pulse 85 12/20/23 12:35 Resp 29 H 12/20/23 11:00 BP 86/56 12/20/23 11:00 Pulse Ox 93 L 12/20/23 11:00 FiO2 30 12/20/23 11:53 Intake & Output 12/19/23 12/20/23 12/20/23 18:59 06:59 18:59 Intake Total 262.328 610 50 Output Total 970 870 270 Balance -707.672 -260 -220 Weight 97.5 kg 97.5 kg Intake: IV 120 170 50 0.9 KVO 120 70 50 Piperacillin-Tazobactam 3 100 .375 gm In Sodium Chloride 0.9% 100 ml @ 25 mls/hr IVPB Q8HR [facility] Rx# :[id number] Intake, IV Titration 142.328 Amount DAPTOmycin 600 mg In 50 Sodium Chloride 0.9% 50 ml @ 100 mls/hr IVPB Q48H [facility] Rx#:[id number] Dexmedetomidine/0.9% NaCl 92.328 (Pmx) 400 mcg In Empty Bag 1 bag @ 0.2 MCG/KG/HR 4.925 mls/hr IV .[id number] [facility] Rx#:[id number] Tube Feeding 240 Other 200 Output: Drainage 100 80 Right Abdomen 100 80 Urine 870 870 190 Other: Voiding Method Indwelling Catheter Indwelling Catheter Indwelling Catheter # Bowel Movements 1 ABP, PAP, CO, CI - Last Documented Arterial Blood Pressure 139/59 - Exam GENERAL DESCRIPTION: An elderly male lying in bed in no distress RESPIRATORY SYSTEM: Unlabored breathing , decreased breath sounds at bases HEART: S1 S2 regular rate and rhythm , ABDOMEN: Soft , no tenderness EXTREMITIES: No edema feet - Labs CBC & Chem 7: 12/20/23 05:25 12/20/23 05:25 Labs: Abnormal Lab Results - Last 24 Hours (Table) 12/19/23 12/20/23 12/20/23 Range/Units 18:32 00:13 00:17 WBC (3.8-10.6) k/uL RBC (4.30-5.90) m/uL Hgb (13.0-17.5) gm/dL Hct (39.0-53.0) % MCHC (31.0-37.0) g/dL RDW (11.5-15.5) % Neutrophils # (1.3-7.7) k/uL ABG pH 7.49 H (7.35-7.45) ABG pCO2 33 L (35-45) mmHg ABG pO2 73 L (83-108) mmHg ABG Total CO2 26 H (19-24) mmol/L Hemoglobin 7.4 L (13.0-17.5) gm/dL Chloride (98-107) mmol/L BUN (9-20) mg/dL Creatinine (0.66-1.25) mg/dL POC Glucose (mg/dL) 132 H 151 H (70-110) mg/dL Calcium (8.4-10.2) mg/dL 12/20/23 12/20/23 12/20/23 Range/Units 05:25 05:25 12:12 WBC 13.7 H (3.8-10.6) k/uL RBC 2.63 L (4.30-5.90) m/uL Hgb 7.2 L (13.0-17.5) gm/dL Hct 23.6 L (39.0-53.0) % MCHC 30.4 L (31.0-37.0) g/dL RDW 19.0 H (11.5-15.5) % Neutrophils # 11.4 H (1.3-7.7) k/uL ABG pH (7.35-7.45) ABG pCO2 (35-45) mmHg ABG pO2 (83-108) mmHg ABG Total CO2 (19-24) mmol/L Hemoglobin (13.0-17.5) gm/dL Chloride 113 H (98-107) mmol/L BUN 88 H (9-20) mg/dL Creatinine 1.89 H (0.66-1.25) mg/dL POC Glucose (mg/dL) 111 H (70-110) mg/dL Calcium 7.0 L (8.4-10.2) mg/dL Assessment and Plan (1) Sepsis Current Visit: Yes Status: Acute Code(s): A41.9 - SEPSIS, UNSPECIFIED ORGANISM SNOMED Code(s): 11153453 (2) Pneumonia Current Visit: Yes Status: Acute Code(s): J18.9 - PNEUMONIA, UNSPECIFIED ORGANISM SNOMED Code(s): 320332852 (3) Bacteremia Current Visit: Yes Status: Acute Code(s): R78.81 - BACTEREMIA SNOMED Code(s): 3019488 Plan: 1patient with sepsis in this patient has been in the hospital for 34 days before this initial consultation with initial admission to the hospital after elective EGD with the patient was noted to have gastric outlet obstruction and did aspirated subsequently the patient did have laparotomy for perforated small bowel status post resection and jejunostomy tube placement noted to have evidenc e of a midline abdominal wound dehiscence did have a apical cavitary lesion on the right side with his sputum showing Pseudomonas and Klebsiella, the patient also have positive blood culture with coagulase-negative staph patient did have a PICC line as well as dialysis catheter etiology of his sepsis is likely multifactorial in this patient who did have a complicated history as the patient has been the hospital for more than a month, including pneumonia and possible line related sepsis versus abdominal source 2-patient patient did spike a fever last night however the patient white count is trending down blood culture has been obtained nurse staff has been advised to obtain blood cultures from his dialysis catheter tomorrow 3we will continue with Zosyn and daptomycin and monitor clinical course closely Dictation was produced using [employer] software. please excuse any grammatical, word or spelling errors. Time with Patient: Less than 30
--- NOTE | 2023-12-20 15:09 | P.PN ---
Subjective Progress Note Date: 12/20/23 CHIEF COMPLAINT: Abdominal pain HISTORY OF PRESENT ILLNESS: Patient remains in the ICU on mechanical vent ilation. Has tracheostomy. Patient's J-tube got clogged during the night. Tube feeds have been off. Patient did have increased abdominal pain during the night. He has yellowish drainage from around the RAYA drain site. He did have a temp of 101. White count has come down from 14-13. Hgb 7.2 Patient did have a bowel movement yesterday. Currently afebrile. PHYSICAL EXAM: VITAL SIGNS: Reviewed. GENERAL: no acute distress. HEENT: Tracheostomy site clean dry and intact ABDOMEN: Soft. Nondistended. Midline incision with wound VAC in place and intact. J-tube in place with yellowish drainage noted on dressing and onto the abdominal binder. There is also a small ulceration under the bolster of the J- tube that is located at the 9 o'clock position the J-tube. RAYA drain in place with serous output ASSESSMENT: 1. 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 Status post J-tube placement and revision for small bowel obstruction 2. Abdominal wound dehiscence status post wound VAC placement 3. Status post tracheostomy PLAN: -Wound vac to be changed MON, WED, FRI -Keep patient strict n.p.o. -Do not place medications down J-tube -Tube feeds on hold -Nursing staff working on trying to unclog the J-tube. IR service consulted for possible J-tube exchange over wire. IR service unable to do procedure -Further recommendations forthcoming per surgeon -Zinc oxide cream ordered to place around J-tube -Continue ICU management -Continue supportive care Physician Emery Grinder note has been reviewed by physician. Signing provider agrees with the documented findings, assessment, and plan of care. Objective - Vital Signs Vital signs: Vital Signs Temp 98.9 F 12/20/23 08:00 Pulse 87 12/20/23 11:00 Resp 29 H 12/20/23 11:00 BP 86/56 12/20/23 11:00 Pulse Ox 93 L 12/20/23 11:00 FiO2 30 12/20/23 08:00 Intake & Output 12/19/23 12/20/23 12/20/23 18:59 06:59 18:59 Intake Total 262.328 610 50 Output Total 970 870 270 Balance -707.672 -260 -220 Weight 97.5 kg 97.5 kg Intake: IV 120 170 50 0.9 KVO 120 70 50 Piperacillin-Tazobactam 3 100 .375 gm In Sodium Chloride 0.9% 100 ml @ 25 mls/hr IVPB Q8HR [facility] Rx# :[id number] Intake, IV Titration 142.328 Amount DAPTOmycin 600 mg In 50 Sodium Chloride 0.9% 50 ml @ 100 mls/hr IVPB Q48H [facility] Rx#:[id number] Dexmedetomidine/0.9% NaCl 92.328 (Pmx) 400 mcg In Empty Bag 1 bag @ 0.2 MCG/KG/HR 4.925 mls/hr IV .[id number] [facility] Rx#:[id number] Tube Feeding 240 Other 200 Output: Drainage 100 80 Right Abdomen 100 80 Urine 870 870 190 Other: Voiding Method Indwelling Catheter Indwelling Catheter Indwelling Catheter # Bowel Movements 1 ABP, PAP, CO, CI - Last Documented Arterial Blood Pressure 139/59 - Labs CBC & Chem 7: 12/20/23 05:25 12/20/23 05:25 Labs: Abnormal Lab Results - Last 24 Hours (Table) 12/19/23 12/20/23 12/20/23 Range/Units 18:32 00:13 00:17 WBC (3.8-10.6) k/uL RBC (4.30-5.90) m/uL Hgb (13.0-17.5) gm/dL Hct (39.0-53.0) % MCHC (31.0-37.0) g/dL RDW (11.5-15.5) % Neutrophils # (1.3-7.7) k/uL ABG pH 7.49 H (7.35-7.45) ABG pCO2 33 L (35-45) mmHg ABG pO2 73 L (83-108) mmHg ABG Total CO2 26 H (19-24) mmol/L Hemoglobin 7.4 L (13.0-17.5) gm/dL Chloride (98-107) mmol/L BUN (9-20) mg/dL Creatinine (0.66-1.25) mg/dL POC Glucose (mg/dL) 132 H 151 H (70-110) mg/dL Calcium (8.4-10.2) mg/dL 12/20/23 12/20/23 Range/Units 05:25 05:25 WBC 13.7 H (3.8-10.6) k/uL RBC 2.63 L (4.30-5.90) m/uL Hgb 7.2 L (13.0-17.5) gm/dL Hct 23.6 L (39.0-53.0) % MCHC 30.4 L (31.0-37.0) g/dL RDW 19.0 H (11.5-15.5) % Neutrophils # 11.4 H (1.3-7.7) k/uL ABG pH (7.35-7.45) ABG pCO2 (35-45) mmHg ABG pO2 (83-108) mmHg ABG Total CO2 (19-24) mmol/L Hemoglobin (13.0-17.5) gm/dL Chloride 113 H (98-107) mmol/L BUN 88 H (9-20) mg/dL Creatinine 1.89 H (0.66-1.25) mg/dL POC Glucose (mg/dL) (70-110) mg/dL Calcium 7.0 L (8.4-10.2) mg/dL
--- NOTE | 2023-12-20 15:52 | P.PN ---
Progress Note - Text Progress Note Date: 12/20/23 Chief Complaint: Aspirated This is a 73-year-old patient, follows with Dr. Patricia Deal. Patient was seen this morning in the ICU. Patient's and daughter at the bedside. History obtained predominantly by the . Patient been having trouble with his stomach symptoms for close to 8 months. Patient underwent EGD by Dr. Sahara Cheng yesterday. Patient was found to have ulcerated around the antrum and obstruction to the pylorus. A lot of retained food was found. Patient aspirated. Had to be intubated and brought to the ICU. On a Levophed drip. FiO2 50 and a PEEP of 6. Patient had been losing weight lost about 25 pounds. Previously has a history of mitral valve prolapse. November 13: ICU. Patient remains on Precedex drip and propofol drip. Did not do well attempted extubation yesterday. Patient been off Levophed. NG tube to suction. Spoke to patient's and son at the bedside. Biopsy results awaited. Hemoglobin dropped to 6.9 this morning. Get a unit of blood. November 14: ICU. Up in a chair. Extubated yesterday. NG tube to suction. at the bedside. 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 Oncology was consulted. They have ordered a port. Results discussed with Dr. Sahara Cheng. General surgery was consulted for J-tube placement. Discussed with at the bedside. Patient getting IV fluids, IV Zosyn,. Patient has been on IV amiodarone for A-fib-back in sinus rhythm. Multiple PACs. Did receive unit of blood yesterday. Also IV ferric gluconate. November 15: ICU. Patient earlier today underwent jejunostomy tube placement and a port placement. Patient awake. Answering questions. NG tube to suction present. Updated patient's . Patient remains on IV amiodarone and IV Zosyn. November 16: ICU. Up in the chair. NG tube present but not to suction. Trickle feeding through the jejunostomy tube should be started today. Dietitian has been on board. IV Zosyn to continue. Patient's and his sister at the bedside. Discussed. Also spoke with Dr. Serna. Given patient has no other predisposing cardiac factors for the A-fib except acute illness. His LV function is normal. Left atrium is normal. He has already been loaded with IV amiodarone. Will switch him to oral Lopressor 12.5 twice daily. Hence will DC amiodarone. Patient yesterday had wheezing was put on bronchodilators steroids per pulmonary. November 17: Propped up in bed. NG tube was discontinued. Sinus rhythm. Remains NPO. Getting G-tube feeding at 40 cc an hour. Dietitian following. Get arrangements done for DC home tomorrow including tube feeding. Increase activity discussed with patient and elder daughter at the bedside. Still requiring oxygen. Incentive spirometry. November 18: Patient up in recliner. Earlier today spoke to social media analyst David. Informed patient is rather weak and will be going to the [facility]. Looking at authorization. Denae came to the room and spoke to patient his and his daughter. They are very keen to take the patient home as 3 daughters all nurses and they will take care of him at home. Patient earlier today to abdominal cramping and some loose stools.'s tube feeding was held. Told the nurse to start back at the rate of 40 cc an hour. He was before the getting it at 55 cc an hour. Incentive spirometry was again emphasized. Patient remains on 4 L of oxygen. November 19: I saw the patient this morning. Hence I am in the evening. Morning was sitting with his sons. Has some edema. Lungs had crackles I gave him 40 mg of Lasix. He did make good urine. Tube feeding was held from the previous evening of because of abdominal cramping. Acute abdominal series showed nonspecific bowel gas pattern and SBO to be ruled out. Family and patient was updated. Told him discharge will depend on day by day. Later this afternoon CT scanAnd abdomen pelvis done. Showed small bowel to be 3 point centimeter dilated. Some anasarca. Gastric findings. Gallstones. Later spoke to Dr. Irby from general surgery. They will further review and decide about further plan of action. Will give further dose of IV Lasix because of fluid overload from likely hypoalbuminemia and IV fluids previously received. Patient may take his pills by mouth. Total time spent today about 1 hour with over 40 minutes of discussion. Patient did state his breathing is better after Lasix this morning. November 20: Saw the patient this morning. was present. Patient received 2 more doses of Lasix. Diuresed well. Breathing much better. Lungs are sounding better. Discussed with Dr. Zepeda other surgeon. He is taking 3 cc out of the balloon and the gastrostomy tube. Started trickle feeding at 5 cc an hour. Will see how this does. Later in the day ran into the and the daughter again. Did update them on the same. Dilaudid was discontinued yesterday but morphine was ordered by surgery for patient having pain. Concerns about GI issues with that we will DC the morphine. As family does not want the same. November 21: Patient reclining bed. Tired. Several family members at the bedside. Including his and eldest daughter. Patient started on trickle feed yesterday at 5 cc an hour. This morning he has been on 10 cc an hour. Still having some loose stools. C. difficile was ordered. Patient on 2 L of nasal cannula. Has diuresed well. Will give an additional dose of Lasix today. If C. difficile is negative and the diarrhea is from the tube feedings we may have to use a fecal management system to keep him comfortable. Otherwise patient remains NPO. Dietitian is following the patient. Care was discussed length with patient the and daughter at the bedside. Questions answered. Liquid Tylenol has been added for abdominal pain. Avoid narcotics. Elevated white count likely from Solu-Medrol 11/23/2023--patient was feeling better today. Multiple family member at bedside. No issues overnight. Normal saline at 10 cc an hour, tube feeding at 20 cc an hour, remains on Zosyn, on 3 L oxygen. Afebrile. Heart rate 62, respiratory rate 16, blood pressure 114/67, saturating 91% on 3 L. WBCs 14.5, 9.7 hemoglobin. Platelet 242. BMP is unremarkable. Pulmonary and general surgery following. General surgery recommended to continue tube feeds at 20 cc/h. 11/24/2023--patient reported significant abdominal discomfort, also noted to have leak around G-tube. General surgery is following, evaluated the patient at bedside, adjusted tube feeds. Also reported having diarrhea, on 2 L oxygen, went up to 5 L. Blood pressure was low, 500 mL fluid bolus with close monitoring of respiratory status ordered. Currently on DuoNebs, Solu-Medrol, will continue Zosyn. Chest x-ray showed a left lower lobe infiltrate. Abdominal x-ray showed multiple air-fluid levels. CT abdomen showed multiple dilated small bowel loops, consistent with obstruction, pneumoperitoneum, cholelithiasis and ascites. WBCs 14.1, platelet 255, hemoglobin 8.9. NG tube in place. Family at bedside. patient transferred to SICU for close monitoring. 11/25/23--patient is currently in the ICU, required Levophed overnight due to low blood pressure, low urine output with creatinine trending up. Nephrology following. Digital Marketing Lead also following. Patient remains n.p.o., NG tube in place, following NG tube insertion patient had total of 2 L output, J-tube was draining approximately 200 cc over last 8 hours, continues to have abdominal pain and abdominal tenderness. Patient on IV fluids. Currently on 4 L oxygen. WBCs 8.2, hemoglobin 12.3, platelet 188. Chest x-ray earlier today showed right sided port and a stable left lung airspace disease, NG tube in place. Patient currently on Zosyn, on IV Dilaudid for pain control, on IV Solu-Medrol. General surgery planning for OR today, started on TPN. 11/26/23--patient was seen and examined today. Patient is currently sedated, intubated on mechanical ventilation. Family at bedside. Patient underwent ex lap, abdominal washout, small bowel resection with new feeding jejunostomy tube placement yesterday, small bowel was noted to be perforated with significant contamination of abdominal cavity. Patient is currently on vancomycin and Zosyn. Creatinine went up to 2.85, nephrology following, recommended to continue IV fluids, avoid nephrotoxin Preserved EF on echocardiogram.. Patient currently on Levophed, vasopressin in the ICU for close monitoring. Patient is afebrile, heart rate 122, blood pressure 129/76, currently on mechanical ventilation, sedated. November 26: ICU. Intubated. FiO2 60 and a PEEP of 5. Drips include IV amiodarone. Heart rate was up early did get fired microgram of IV digoxin and 2.5 mg of IV Lopressor. Did drop her blood pressure bit. Urine output was low. Received 80 mg of IV Lasix. Ahmet to 150 cc. Other drips include IV propofol, vasopressin, Levophed. TPN was started yesterday. Antibiotics include IV Zosyn and vancomycin. Patient has a J-tube to drainage to gravity. Spoke to patient's younger daughter and at the bedside. Prognosis guarded. Continue current treatment plan. Chest x-ray shows right lower lobe consolidation. Small pleural effusion. November 27: ICU. Intubated. FiO2 55 and a PEEP of 5. Antibiotics include IV vancomycin. Drips include Levophed at a small dose, IV vasopressin, propofol, amiodarone. Patient converted to sinus rhythm this morning. Getting TPN and normal saline at 75 cc an hour. Urine output about 25 cc an hour. RAYA drain put out about 260 cc last 12 hours that is last warehouse worker 2nd shift. NG tube with bilious output. And also GI J-tube output to gravity. Spoke to patient's and daughter at the bedside. They understand patient still not out of the kee. Platelets have dropped-therefore probably Zosyn stopped. November 28: ICU. Intubated. FiO2 55 and a PEEP of 5. Patient is in sinus rhythm. Seen this morning. Due for dialysis catheter this afternoon. Urine output about 15 to 20 cc an hour. Patient is on IV Lasix 80 mg every 12. Saline is KVO. Drips include IV propofol vasopressin. Patient having significant output through the RAYA drain and the jejunostomy tube to drainage. Creatinine had been getting worse. Patient's at the bedside. Understands patient's remains critically ill. Hemoglobin is down to 7. Given that patient's pain hypotensive, and on vasopressin we will give a unit of blood with dialysis. Getting TPN antibiotic changed to IV meropenem November 29: ICU. Intubated. FiO2 55 and a PEEP of 5. Remains in sinus rhythm. Getting TPN. Dialyzed yesterday and this morning. About 1000 cc removed. Urine output about 50 cc an hour. Patient is on IV propofol. Off vasopressin. Still having significant output through the RAYA drain and jejunostomy tube. Patient received a second unit of blood yesterday. Patient's and daughter at the bedside. I did discuss guarded prognosis. Did asked them to revisit CODE STATUS.. Getting IV meropenem. November 30: ICU. Intubated. Did get a sedation holiday t today. Back on propofol. Getting TPN. Still getting IV Lasix. Fair urine output. Jejunostomy tube in last 8 hours was about 30 cc output. RAYA drain in the 8 hours had about 180 cc output. Telemetry shows sinus rhythm. NG tube has low intermittent suction with negative output. On the vent with FiO2 40 and a PEEP of 5. No hemodialysis today. Discussed with the and eldest daughter at the bedside. IV meropenem-patient's sputum had grown Citrobacter freundii and Pseudomonas aeruginosa. December 01: ICU. Intubated. Jejunostomy tube to gravity. Only 10 cc output in last 24 hours. RAYA drain. About 190 cc last 6 hours. Nasogastric tube to low intermittent suction. Minimal output. Patient is on a small dose of propofol 5 mics. Telemetry shows sinus rhythm. Patient started on small dose of Cleviprex this morning. Blood pressure. Getting TPN. FiO2 35 and PEEP of 5. Discussed with the at the bedside. Hemodialysis today December 02: ICU. Patient remains intubated. FiO2 35 PEEP of 5. Patient is on IV propofol. IV Cleviprex was discontinued yesterday. Also remains on TPN. Telemetry shows sinus rhythm. NG tube is good no output. Still significant output through the RAYA drain. Jejunostomy tube has minimal output. Patient had hemodialysis today 2 L of fluid was removed. Oral half liters yesterday. Patient getting a sedation holiday. General Surgery started the patient on trickle feeding at 10 cc an hour. I did speak to patient's at the bedside. Prognosis remains guarded but there is some improvement. December 03: ICU. Intubated. FiO2 35 PEEP of 5. Drips include IV propofol and Precedex. Getting TPN. Telemetry shows sinus rhythm. Remains on IV Lasix 80 mg twice a day. IV meropenem. Because patient gets easily agitated when transitioning off propofol he has been switched over to Precedex. For hemodialysis today. December 04: ICU. Intubated. FiO2 35 and a PEEP of 5. Patient been taken off propofol is on Precedex. Telemetry sinus rhythm. J-tube with minimal output. RAYA drain with decreased output. NG tube to suction minimal output. Family wanted to hold off trickle feeding until cleared by oncology. Which he did today. Trickle feeding will be started today. Spoke to patient's and one of the daughters at the bedside. Dr. Russ is spoken to the earlier this point they want to do further tracheostomy tube. December 05: ICU. Intubated. FiO2 35 PEEP of 5. Patient remains on Precedex and PPN. Patient's dialysis catheter was not functioning is getting another [address] Bobby this afternoon. Remains on IV meropenem. Has a RAYA drain in the jejunostomy tube to gravity. NG tube to low intermittent suction. No family at the bedside. December 06: ICU. Intubated. FiO2 35 PEEP of 5. RAYA drain putting out about approximately 120 cc per shift. Patient on IV Precedex. FiO2 35 PEEP of 5. Telemetry-sinus rhythm. Patient occasionally been put on small dose of Levophed specially for hemodialysis getting it today. Also started on midodrine for low blood pressure. Tolerating tube feeding at 10 cc an hour. Also had a bowel movement. Mentation has not improved. Even with sedation holiday. Neurology consulted. CT brain shows no acute process. December 07: ICU. Intubated. FiO2 35 PEEP of 5. Telemetry-sinus rhythm. NG tube to suction low intermittent minimal output. Getting TPN. Tube feeding at 20 cc an hour. RAYA drain averaging over 100 cc per shift. Remains on Precedex. EEG was done today. Discussed with at the bedside. Family is currently not inclined for tracheostomy tube today. Day 13 of being intubated December 08: ICU. Intubated. FiO2 35 PEEP of 5. Patient is put on back on propofol per dry lumber grader Dr. BINGHAM. EEG did show some potential for spikes was put on Keppra by neurology. Telemetry shows sinus rhythm. NG tube to suction with no output. Tube feeding was put on hold because of questionable discharge on the site. Being restarted today. RAYA drain is 150 cc last 12-hour shift. Patient does open eyes. Family has decided to proceed with tracheostomy and surgery has been consulted for the same. Spoke to the at the bedside. For hemodialysis today. December 09: ICU. Intubated FiO2 35 PEEP of 5. Patient seen this morning. Pending tracheostomy placement this afternoon. Remains NPO. G-tube feeding was held overnight. RAYA drain putting out about 100 cc per shift. Received a unit of blood for hemoglobin of 6.6. On 25 mics of propofol. Getting TPN and meropenem. Spoke to the at the bedside. Patient became hypotensive with dialysis yesterday. Levophed had to be given. Only 800 cc were removed yesterday. No hemodialysis today. December 10: ICU . FiO2 35, PEEP 5. Tracheostomy was done yesterday by Dr. Ewing. G-tube feeding was started today at 10 cc an hour. Dietitian following. RAYA drain 12-hour shift overnight put out about 30 cc. Patient hemodialysis to day about 1 L removed. Patient has a sacral stage II decub with a dressing. On propofol 20 mics. Spoke to at the bedside. TPN. Meropenem was discontinued yesterday. December 11: ICU. FiO2 35 PEEP of 5. Tracheostomy. NG tube was discontinued. No hemodialysis today. Telemetry shows sinus rhythm. J-tube feeding at 40 cc an hour. TPN was discontinued. Patient has been off propofol also. PICC line in place. Patient had a EEG done today. Spoke to patient's elder daughter at the bedside. May open eyes occasionally. Not really following commands December 12: 73-year-old white male with history of chronic abdominal pain for the last 8 months has been treated with Protonix 40 mg daily for the last 3 months with no improvement. Patient had a 22 pound weight loss in the last [address] of the abdomen and pelvis 3 weeks ago showed thickening of the antral wall with pathological adenopathy posterior to the stomach suspicious of neoplasm. Today the patient underwent elective upper endoscopy to evaluate further, patient received IV sedation by anesthesia endoscope was inserted into the mouth, esophagus was intubated without any difficulty there was evidence of large amount of liquid and solid food noted in the stomach suggestive of gastric outlet obstruction. Scope could not be advanced through the pylorus, however in the prepyloric area there was a large superficial ulceration identified with multiple biopsies were done from this area. The body cardia and fundus could not adequately visualize because of large amount of retained food in the stomach. Scope was withdrawn back to the stomach and upon careful examination the mucosa of the antrum body and cardia as well as the fundus appeared normal. Procedure was being performed and biopsies were done patient threw up and subsequently became hypoxic there was clearly evidence of witnessed aspiration anesthesia intubated the patient, procedure was terminated, and the patient was transferred to the ICU, this consult was initiated. Patient is now on assist- control rate of 20 tidal volume 500 FiO2 70% PEEP of 10 ABG is pending, earlier ABG showed profound hypoxia patient is on propofol at 50 mcg/kg/min, next ABG is pending. Chest x-ray showed chronic changes without evidence of acute pulmonary disease. 12/14/2023 Patient remains in the ICU, generally weak Patient s/p tracheostomy G-tube in place Patient still has fever and mild tachycardia but tachycardia is improving, leukocytosis improving as well. Hemoglobin 8.1. Creatinine 3.0 and nephrology team on the case. He has mild transaminitis. He was getting Zosyn which is held now, nowCalcitonin is pending 12/14 Patient shon in the ICU, he is still encephalopathic and does not follow command. Neurology service following closely. He is status post tracheostomy. Also J-tube His abdomen looks soft and on exam he has mild coarse secretions. Has a Abarca catheter with clear urine His pro- Calcitonin is still high but trending down 3.0 down to 1.9 No fever this morning WBC slightly less at 16.3 Patient currently off antibiotic He is getting steroids IV Solu-Medrol which might contribute to his leukocytosis. Also he is on IV Keppra by neurologist 12/14 Patient remains confused in the ICU calm, he had a good night per family member and staff. Tracheostomy in place Patient has occasional coughing spells, patient also developed some partial wound dehiscence in his abdomen, surgery team are aware and are going to evaluate the patient Patient also has positive blood culture from 12/13: Gram-positive cocci in clusters. Patient received one-time dose of IV vancomycin. Patient also had fever 2 days ago, leukocytosis and total elevated pro- Calcitonin. Therefore we are going to consult infectious disease team. As his antibiotic Zosyn was stopped few days ago. Currently patient KVO He has good urine output December 16: ICU. Trach. Congested. Requiring suctioning. No hemodialysis today. Getting G-tube feeding at 50 cc an hour. FiO2 30 and a PEEP of 5. On IV Precedex. Eyes open. Does follow commands. Weakness in the limbs. Spoke to at the bedside. Sputum positive for Klebsiella oxytoca and Pseudomonas aeruginosa. December 17: ICU. On trach. Currently cough with increased secretions requiring suctioning. Adding scopolamine patch. Very much clear secretion. CT scan is showing right upper lobe lung abscess. G-tube feeding at 50 cc an hour. Hemodialysis today. RAYA drain putting out about 140 cc a shift. Serous. Has been midline incision wound dehiscence. Wound VAC was placed on it. Stage II ulcer. Patient is on Precedex drip 0.15 mics. Urine output is good about 6200 cc an hour. Spoke to the at the bedside. Patient currently not stable for transfer to LTAC. No limb movements. PT OT on the case. otherwise awake does follow simple commands by face December 17: ICU. Patient seen this afternoon. Because of pain getting IV Dilaudid. No nasal cannula on room air. Does move about his head. Telemetry shows sinus rhythm. FiO2 30 and a PEEP of 5. Patient started on scopolamine patch yesterday has decreased secretions today. Good urine output. Tube fee ding at 60 cc an hour. Wound VAC on incisional would be high since in place. RAYA drain continues to make output. No hemodialysis today December 19: ICU. Patient was seen earlier today. FiO2 30 and a PEEP of 5. Sinus rhythm. Awake. Does follow with eyes. Tube feeding got obstructed tube feedings held for now. Increasing oozing from the incision drainage site. at the bedside. Wound VAC remains in place. Good urine output. Dialysis held today. Active Medications Acetaminophen (Acetaminophen Tab 325 Mg Tab) 650 mg PO Q4HR PRN PRN Reason: Fever and/ or Pain Last Admin: 12/09/23 20:09 Dose: 650 mg Acetaminophen (Acetaminophen Oral Susp (Peds) 3,840 Mg/120 Ml Bottle) 480 mg PO Q4HR PRN PRN Reason: Fever Albuterol/Ipratropium (Ipratropium-Albuterol 3 Ml Neb) 3 ml INHALATION RT-QID [facility] Last Admin: 12/20/23 12:23 Dose: 3 ml Albuterol/Ipratropium (Ipratropium-Albuterol 3 Ml Neb) 3 ml INHALATION RT-Q2H PRN PRN Reason: Shortness Of Breath Or Wheezing Last Admin: 12/03/23 03:45 Dose: 3 ml Chlorhexidine Gluconate (Chlorhexidine Gluconate 15 Ml Cup) 15 ml MUCOUS MEM BID [facility] Last Admin: 12/20/23 08:24 Dose: 15 ml Darbepoetin Scooby (Darbepoetin Scooby 40 Mcg/0.4 Ml Syringe) 40 mcg SQ Q7D [facility] Last Admin: 12/17/23 07:51 Dose: 40 mcg Dextrose/Water (Dextrose 50% Syringe 50 Ml) 25 ml IVP PER PROTOCOL PRN; Protocol PRN Reason: Hypoglycemia Dextrose/Water (Dextrose 50% Syringe 50 Ml) 50 ml IVP PER PROTOCOL PRN; Protocol PRN Reason: Hypoglycemia Hydromorphone HCl (Hydromorphone 0.5 Mg/0.5 Ml Syringe) 0.25 mg IVP Q3H PRN PRN Reason: Pain Last Admin: 12/20/23 14:36 Dose: 0.25 mg Sodium Chloride (Saline 0.9%) 1,000 mls @ 20 mls/hr IV .Q24H [facility] Last Admin: 12/19/23 18:34 Dose: 20 mls/hr Dexmedetomidine HCl 400 mcg/ (IV Solution) 100 mls @ 4.925 mls/hr IV .[id number] [facility]; Protocol Last Admin: 12/20/23 14:38 Dose: 0.16 mcg/kg/hr, 3.94 mls/hr Piperacillin Sod/Tazobactam (Sod 3.375 gm/ Sodium Chloride) 100 mls @ 25 mls/hr IVPB Q12HR [facility]; Protocol Last Admin: 12/20/23 08:26 Dose: 25 mls/hr Daptomycin 600 mg/ Sodium (Chloride) 50 mls @ 100 mls/hr IVPB Q48H [facility]; Protocol Last Admin: 12/19/23 08:49 Dose: 100 mls/hr Norepinephrine Bitartrate 4 mg (/ Sodium Chloride) 254 mls @ 11.259 mls/hr IV .[id number] [facility]; Protocol Last Admin: 12/20/23 11:29 Dose: Not Given Insulin Aspart (Insulin Aspart (Novolog) 100 Unit/Ml Vial) 0 unit SQ 0000,0600,1200,1800 [facility]; Protocol Last Admin: 12/20/23 13:41 Dose: Not Given Insulin Detemir (Insulin Detemir (Levemir) 100 Unit/Ml Syr) 24 unit SQ DAILY@0700 [facility] Last Admin: 12/20/23 06:45 Dose: Not Given Levetiracetam (Levetiracetam Iv 500 Mg/5 Ml Vial) 500 mg IVP Q24HR [facility] Last Admin: 12/20/23 08:25 Dose: 500 mg Lorazepam (Lorazepam 2 Mg/Ml Inj) 1 mg IV Q4HR PRN PRN Reason: Anxiety Metoprolol Tartrate (Metoprolol Tartrate 5 Mg/5 Ml Vial) 2.5 mg IVP Q6HR PRN PRN Reason: Heart Rate - HIGH Last Admin: 11/27/23 08:25 Dose: 2.5 mg Midodrine (Midodrine 5 Mg Tab) 5 mg PO AC-TID [facility] Last Admin: 12/20/23 13:42 Dose: Not Given Miscellaneous Information (Magnesium Replacement Protocol 1 Each Misc) 1 each MISCELLANE DAILY PRN; Protocol PRN Reason: Per Protocol Multi-Ingredient Ointment (Zinc Oxide 20% Oint 28.4 Gm Tube) 1 applic TOPICAL BID PRN; Protocol PRN Reason: Skin Irritation Naloxone HCl (Naloxone 0.4 Mg/Ml 1 Ml Vial) 0.2 mg IV Q2M PRN PRN Reason: Opioid Reversal Pantoprazole Sodium (Pantoprazole 40 Mg/10 Ml Vial) 40 mg IVP BID [facility] Last Admin: 12/20/23 08:25 Dose: 40 mg Petrolatum (Zinc Oxide Paste (Z-Guard) 1 Applic) 1 applic TOPICAL BID [facility]; Protocol Last Admin: 12/20/23 08:27 Dose: 1 applic Scopolamine (Scopolamine 1 Mg/72 Hr Patch) 1 patch TRANSDERM Q72H [facility] Last Admin: 12/18/23 14:24 Dose: 1 patch Past medical history to include: GERD Social history: . No smoking. Physical examination: VITAL SIGNS: 98.6, 87, 28, 98 x 65, 100% trach GENERAL: Eyes open moving head. Left groin dialysis access. EYES: Pupils equal. Conjunctiva edouard l. HEENT: External appearance of nose and ears normal, tracheostomy-with secretions NECK: JVD unable to assess; masses not palpable. HEART: First and second heart sounds are normal; edema, present LUNGS: Respiratory rate increased, decreased breath sounds ABDOMEN: Soft, nontender, liver spleen not palpable, no masses palpable..jejun ostomy tube-attached to tube feeding . RAYA drain. Incision with stitches with some midline breakdown with wound VAC PSYCH: Unable to assess NEURO: Very little movement in limbs. Eyes open. Moves head to command INVESTIGATIONS, reviewed in the clinical context: December 19: White count 13.7 hemoglobin 7.2 platelets 2 3 potassium 4.1 BUN 88 creatinine 1.89 December 18: White count 14.8 hemoglobin 7.2 platelets 248 potassium 4.1 BUN [address] chest abdomen without contrast [December 16] right upper lung cavitary lesion with air-fluid level in the posterior aspect and a larger cavitary lesion possibly within the lung parenchyma itself. Extending down towards the diaphragm additional airspace opacities in the left lung base. December 17: White count 12.5 hemoglobin 7.3 platelets 275 sodium 147 potassium 3.4 BUN 116 creatinine 2.68 December 16: White count 6.2 hemoglobin 7.1 platelets 237 sodium 143 potassium 3.7 BUN 109 creatinine 2.68 December 11: White count 7.9 hemoglobin 7.4 platelets 151 sodium 133 potassium 4 BUN 88 creatinine 2.96 December 10: White count 21.3 hemoglobin 7.4 platelets 129 potassium 4.2 BUN 111 creatinine 3.77 December 09: White count 26.1 hemoglobin 8.6 platelets 154 potassium 4.1 BUN 86 creatinine 3.31. Hemoglobin this morning was 6.6 prior to transfusion EEG-evidence of generalized cerebral dysfunction and sporadic intermittent higher amplitude sharply contoured waves mainly bifrontal. Showing cortical irritability. 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 Serosal fibrous adhesions. Viable margins. December 04: White count 10.2 hemoglobin 8 platelets 90 sodium 130 potassium 4 BUN 70 creatinine 2.89 Sputum culture: [November 25]: Citrobacter freundii. Pseudomonas aeruginosa November 20: White count 14.4 hemoglobin 8.8 platelets 229 potassium 4.1 BUN [address] scan abdomen [November 19] possible small bowel obstruction Stool: C. difficile negative November 15: WBC 13 hemoglobin 7.7 platelets 248 potassium 4.3 creatinine 0.87 2D echo: EF 55 to 60%. Kidneys bladder: Unremarkable November 13: White count 12 hemoglobin 6.9 platelets 276 potassium 4.4 creatinine 1.21 magnesium 1.8 iron 6 TIBC 365% saturation 1.64 transferrin 261 ferritin 34.6 B12 569 folate 4.4 November 11: Creatinine 0.86 EGD: Large amount of retained solid liquid food noted in the stomach. Large superficial gastric antral ulceration involving most of the antrum extending into the pylorus causing pyloric stenosis. Biopsies were obtained. Chest x-ray film personally reviewed by me-scattered infiltrates Assessment plan: -Aspiration pneumonitis bilateral from retained gastric contents mostly food and liquids, causing acute hypoxic respiratory failure: On presentation: Subsequent sputum culture November 25: Citrobacter freundii, Pseudomonas aeruginosa. December 13: Klebsiella oxytoca, Pseudomonas aeruginosa IV meropenem-was received originally. Now receiving IV daptomycin and IV Zosyn. Pulmonary following -Probable lung abscess larger 1 on the right side-patient cultures are growing Pseudomonas and Klebsiella oxytoca Continue IV Zosyn -Acute pulmonary edema and fluid overload from hypoalbuminemic state and fluids from IV.:: Has been getting Lasix and dialysis -Altered mentation. Possibly encephalopathy. Could be delirium. CT brain [December 06] nothing acute Neurology following EEG-evidence of generalized cerebral dysfunction and sporadic intermittent higher amplitude sharply contoured waves mainly bifrontal. Showing cortical irritability. Keppra was started on December 07 -Critical care poly- Pedro neuropathy PT OT -Gallstones, asymptomatic -Small l bowel perforation at site of jejunostomy tube tip with balloon..: Portion of small bowel resected. On November 24. New J-tube was placed.- drainage to gravity:-Now discontinued December 19: J-tube blocked. Surgery informed -Acute kidney injury. Possible ATN from hypotensive shock: Slow to respond Renal ultrasound unremarkable. Started on renal replacement therapy on November 28. Followed by nephrology -Nutrition Jejunostomy tube placed November [address] Ewing Getting TPN. Tube feeding at 50 cc an hour -Midline abdominal incision wound dehiscence Wound VAC placed -Acute recurrent atrial fibrillation-converted to sinus rhythm Received IV amiodarone. Cardiology following Lopressor -Acute hypoxic respiratory failure from aspiration pneumonia, status post ventilator assisted: Reintubated November 25. FiO2 35 PEEP of 5 Tracheostomy tube-by Dr. Zepeda on December 09 -Septic shock, recovered -Hypertension Patient started on Cleviprex-discontinued -Intermittent hypotension Intermittent use of Levophed. 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 Also anemia of blood draw. Iron deficiency anemia Received 3rd unit of blood . IV iron. -Severe thrombocytopenia. Would consider coagulation disorder secondary to infection., In the setting of underlying lymphoma.: Recovered Hematology following. -Acute blood loss anemia, Has received 3 units of blood -Sacral stage II decub ulcer Dressing in place -GERD PPI -Acute diarrhea secondary to tube feeding.: Resolved C. difficile ruled out. -Large superficial gastric antral ulceration involving the gastric antrum extending into the pylorus with gastric outlet obstruction. 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 Port placed. For outpatient PET scan. -Full code Surgery informed for J-tube is blocked. Increase secretions through the incision site. No dialysis today. Antibiotics to continue. Prognosis remains guarded. Discussed with at the bedside. Past Medical History Past Medical History: GERD/Reflux History of Any Multi-Drug Resistant Organisms: None Reported Past Surgical History: Heart Catheterization Additional Past Surgical History / Comment(s): colonsocopy,spinal injection, Past Anesthesia/Blood Transfusion Reactions: No Reported Reaction Past Psychological History: No Psychological Hx Reported Smoking Status: Never smoker Past Alcohol Use History: None Reported Past Drug Use History: None Reported
[2023-12-20 18:00] LABS: Glucose,Whole Blood 128 mg/dL (70-110)
[2023-12-21 00:25] LABS: Glucose,Whole Blood 144 mg/dL (70-110)
[2023-12-21 03:02] LABS: Anisocytosis Slight; Basophils % (A) 0 %; Eosinophils # (A) 0.1 k/uL (0-0.7); Eosinophils % (A) 0 %; HGB 7.4 gm/dL (13.0-17.5); Hypochromasia Slight; Lymphocytes % (A) 12 %; MCH 28.2 pg (25.0-35.0); MCHC 32.3 g/dL (31.0-37.0); MCV 87.1 fL (80.0-100.0); Monocytes # (A) 0.4 k/uL (0-1.0); Monocytes % (A) 2 %; Neutrophils # (A) 14.4 k/uL (1.3-7.7); Neutrophils % (A) 85 %; Platelet Count 280 k/uL (150-450); RBC 2.63 m/uL (4.30-5.90); RDW 19.1 % (11.5-15.5); WBC 16.9 k/uL (3.8-10.6)
[2023-12-21 03:23] LABS: African American GFR (CKD) 33 (>60 ml/min/1.73 sqM); Anion Gap 5 mmol/L; Blood Urea Nitrogen 90 mg/dL (9-20); Carbon Dioxide 23 mmol/L (22-30); Chloride 116 mmol/L (98-107); Glucose 130 mg/dL (74-99); Non-African American GFR(CKD) 29 (>60 ml/min/1.73 sqM); Potassium 4.2 mmol/L (3.5-5.1); Sodium 144 mmol/L (137-145)
[2023-12-21] MEDS: LORazepam 2 MG/ML INJ IV PRN (03:23)
[2023-12-21 04:30] LABS: ABG Base Excess 1.3 mmol/L; ABG HCO3 25 mmol/L (21-25); ABG Oxygen Saturation 96.8 % (94-97); ABG PCO2 36 mmHg (35-45); ABG PH 7.46 (7.35-7.45); ABG PO2 82 mmHg (83-108); ABG TCO2 26 mmol/L (19-24); Allen Test Performed? Yes
--- NOTE | 2023-12-21 06:34 | XR ---
EXAMINATION TYPE: XR chest 1V portable DATE OF EXAM: 12/21/2023 COMPARISON: 12/20/2023 HISTORY: Disease progression TECHNIQUE: Single frontal view of the chest is obtained. FINDINGS: The tracheostomy tube is unchanged. The left-sided PICC line terminates in the SVC/RA junction. Mediport catheter tip unchanged in position. Large opacification right upper lobe and right pleural effusion are unchanged compared to previous. T he left lung remains clear. The heart and pulmonary vasculature are normal. There is no pneumothorax. IMPRESSION: No significant interval change [facility], , 12/21/2023 6:32 AM
[2023-12-21 06:47] LABS: Glucose,Whole Blood 148 mg/dL (70-110)
--- NOTE | 2023-12-21 09:41 | P.PN ---
Progress Note - Text Progress Note Date: 12/21/23 CHIEF COMPLAINT: Abdominal pain HISTORY OF PRESENT ILLNESS: Patient remains in the ICU on mechanical ventilation. Has tracheostomy. Patient's J-tube has been clogged. Tube feeds have been off. There is some drainage around the attempts. Attempts at unclogging the tube have been unsuccessful. PHYSICAL EXAM: VITAL SIGNS: Reviewed. GENERAL: no acute distress. HEENT: Tracheostomy site clean dry and intact ABDOMEN: Soft. Nondistended. Midline incision with wound VAC in place and intact. J-tube in place with yellowish drainage noted on dressing and onto the abdominal binder. There is also a small ulceration under the bolster of the J- tube that is located at the 9 o'clock position the J-tube. RAYA drain in place with serous output ASSESSMENT: 1. 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 Status post J-tube placement and revision for small bowel obstruction 2. Abdominal wound dehiscence status post wound VAC placement 3. Status post tracheostomy PLAN: -J tube replaced bedside by myself this morning as attempts at unclogging tube have been unsuccessful. CT Abdomen with Contrast through J tube ordered to check placement of new J tube. Further recs to follow after CT-AP -Wound vac to be changed MON, WED, FRI by Wound Care -Keep patient strict n.p.o. -Do not place medications down J-tube -Tube feeds on hold -Zinc oxide cream ordered to place around J-tube -Continue ICU management -Continue supportive care Dick Ewing DO [facility] [phone]
[2023-12-21] MEDS: IOPAMIDOL CONTRAST (ORAL USE) VIAL PO PRN (10:42)
[2023-12-21] MEDS: SODIUM CHLORIDE 0.9% 1,000 ML IV ONE (11:20)
--- NOTE | 2023-12-21 11:27 | CT ---
EXAMINATION TYPE: CT abdomen pelvis wo con DATE OF EXAM: 12/21/2023 HISTORY: J tube replacement bedside, verfiy location. Oral only through tube CT DLP: 871.1 mGycm. Automated Exposure Control for Dose Reduction was Utilized. TECHNIQUE: CT scan of the abdomen and pelvis is performed without oral or IV contrast. COMPARISON: 12/17/2023 FINDINGS: Within the limitations of a non-contrast study, the following observations are made. There is a large mass in the right lung base with an air-fluid level likely indicating a large right lower lobe lung abscess. There is a small infiltrate in the left lung base as well. Gallbladder is normal and there is no gallstone, wall thickening, pericholecystic fluid or distention . There is no biliary ductal dilatation. There is no organomegaly of the liver, pancreas, spleen or adrenal glands. There is a nonobstructing 5 to 6 mm left renal calcification. There are no right renal calcifications . There is no hydronephrosis. The caliber of the abdominal aorta is normal and there is no retroperitoneal adenopathy or hemorrhage . There is a jejunostomy tube and a small bowel loop in the left lower quadrant of the abdomen and cont rast is seen filling multiple small bowel loops with no extravasation. There is no bowel obstruction. There is a peritoneal hemodialysis catheter entering the right abdomen and terminating in the left mi d abdomen. There are postsurgical changes in the midline abdomen with incisional defect. There is no free intraperitoneal air or fluid. There is diverticulosis of the sigmoid colon without CT evidence of acute diverticulitis. There is a left common femoral vein catheter terminating in the distal IVC. There is no abdominal mass. There is a Abarca catheter in urinary bladder. The osseous structures are intact The osseous structures and soft tissues are unremarkable. IMPRESSION: 1. ube placement at bedside demonstrates catheter with balloon in a small bowel loop in the left lowe r quadrant of the abdomen. Contrast fills multiple bowel loops with no extravasation. Multiple additi onal stable findings as described above. 2. Stable large right lower quadrant mass with an air-fluid level indicating a probable large lung ab scess. [facility], , 12/21/2023 11:25 AM
[2023-12-21 11:46] LABS: Glucose,Whole Blood 156 mg/dL (70-110)
--- NOTE | 2023-12-21 11:47 | P.PN ---
Subjective Patient is seen for follow-up for acute kidney injury. JT was reinserted yesterday. Patient has just returned from computed tomography scan. Blood pressure has been low with systolic 85-90 mmHg. Urine output about 40 mL an hour. patient is sedated and Precedex was increased. Objective - Vital Signs Vital signs: Vital Signs Temp 97.6 F 12/21/23 08:00 Pulse 75 12/21/23 11:37 Resp 24 12/21/23 11:37 BP 79/52 12/21/23 10:00 Pulse Ox 98 12/21/23 10:00 FiO2 30 12/21/23 11:20 Intake & Output 12/20/23 12/21/23 12/21/23 18:59 06:59 18:59 Intake Total 198.997 264.579 100.421 Output Total 625 615 215 Balance -426.003 -350.421 -114.579 Weight 97.5 kg 97.5 kg Intake: IV 120 180 85 0.9 KVO 120 80 10 DAPTOmycin 600 mg In 50 Sodium Chloride 0.9% 50 ml @ 100 mls/hr IVPB Q48H [facility] Rx#:[id number] Piperacillin-Tazobactam 3 25 .375 gm In Sodium Chloride 0.9% 100 ml @ 25 mls/hr IVPB Q12HR [facility] Rx #:[id number] Piperacillin-Tazobactam 3 100 .375 gm In Sodium Chloride 0.9% 100 ml @ 25 mls/hr IVPB Q8HR [facility] Rx# :[id number] Intake, IV Titration 78.997 84.579 15.421 Amount Dexmedetomidine/0.9% NaCl 78.997 84.579 15.421 (Pmx) 400 mcg In Empty Bag 1 bag @ 0.2 MCG/KG/HR 4.925 mls/hr IV .[id number] [facility] Rx#:[id number] Output: Drainage 80 40 140 Right Abdomen 80 40 140 Urine 545 575 75 Other: Voiding Method Indwelling Catheter Indwelling Catheter Indwelling Catheter ABP, PAP, CO, CI - Last Documented Arterial Blood Pressure 139/59 - Exam patient is on the vent. Examination of the heart S1 and S2 Examination of the lungs bilateral breath sounds are heard Abdomen is soft dressed, RAYA drain noted Examination of lower extremities shows no significant edema in the legs. 1+ edema noted in bilateral upper extremities. - Labs CBC & Chem 7: 12/21/23 02:47 12/21/23 02:47 Labs: Abnormal Lab Results - Last 24 Hours (Table) 12/20/23 12/20/23 12/21/23 Range/Units 12:12 17:58 00:23 WBC (3.8-10.6) k/uL RBC (4.30-5.90) m/uL Hgb (13.0-17.5) gm/dL Hct (39.0-53.0) % RDW (11.5-15.5) % Neutrophils # (1.3-7.7) k/uL ABG pH (7.35-7.45) ABG pO2 (83-108) mmHg ABG Total CO2 (19-24) mmol/L Hemoglobin (13.0-17.5) gm/dL Chloride (98-107) mmol/L BUN (9-20) mg/dL Creatinine (0.66-1.25) mg/dL Glucose (74-99) mg/dL POC Glucose (mg/dL) 111 H 128 H 144 H (70-110) mg/dL Calcium (8.4-10.2) mg/dL 12/21/23 12/21/23 12/21/23 Range/Units 02:47 02:47 04:28 WBC 16.9 H (3.8-10.6) k/uL RBC 2.63 L (4.30-5.90) m/uL Hgb 7.4 L (13.0-17.5) gm/dL Hct 23.0 L (39.0-53.0) % RDW 19.1 H (11.5-15.5) % Neutrophils # 14.4 H (1.3-7.7) k/uL ABG pH 7.46 H (7.35-7.45) ABG pO2 82 L (83-108) mmHg ABG Total CO2 26 H (19-24) mmol/L Hemoglobin 6.6 L* (13.0-17.5) gm/dL Chloride 116 H (98-107) mmol/L BUN 90 H (9-20) mg/dL Creatinine 2.21 H (0.66-1.25) mg/dL Glucose 130 H (74-99) mg/dL POC Glucose (mg/dL) (70-110) mg/dL Calcium 7.0 L (8.4-10.2) mg/dL 12/21/23 Range/Units 06:46 WBC (3.8-10.6) k/uL RBC (4.30-5.90) m/uL Hgb (13.0-17.5) gm/dL Hct (39.0-53.0) % RDW (11.5-15.5) % Neutrophils # (1.3-7.7) k/uL ABG pH (7.35-7.45) ABG pO2 (83-108) mmHg ABG Total CO2 (19-24) mmol/L Hemoglobin (13.0-17.5) gm/dL Chloride (98-107) mmol/L BUN (9-20) mg/dL Creatinine (0.66-1.25) mg/dL Glucose (74-99) mg/dL POC Glucose (mg/dL) 148 H (70-110) mg/dL Calcium (8.4-10.2) mg/dL Microbiology - Last 24 Hours (Table) 12/19/23 16:44 Blood Culture - Preliminary Blood Assessment and Plan Assessment: 1. Acute kidney injury secondary to ATN secondary to septic shock. Creatinine 0.86 on admission and up to 5.38 dated November 29, 2023. nonoliguric. UA fairly benign. No hydronephrosis noted on imaging. Started hemodialysis on 11/29/2023 for worsening volume status and acute kidney injury. hemodialysis on hold for last 3 days. 2. Perforated small bowel status post exploratory laparotomy with abdominal washout, small bowel resection and J-tube replacement November 25, 2023. 3. A-fib with RVR. s/p amiodarone drip. Also received digoxin this admission. 4. Recently diagnosed gastric B-cell lymphoma. 5. Septic shock. Likely abdominal source. On IV antibiotics. Off vasopressors now. 6. Hypocalcemia secondary to acute kidney injury. Replaced. Improved. 7. Metabolic acidosis secondary to acute kidney injury. Improved. 8. Volume overload, improved significantly. Plan: hold hemodialysis today. 1 L fluid bolus continue with antibiotics
--- NOTE | 2023-12-21 12:11 | P.PN ---
Subjective Progress Note Date: 12/20/23 12/20/2023: Patient was seen for follow-up. Patient's daughter and patient's are both present. Patient apparently has started responding remarkably. Patient is moving his lower extremities proximally and distally quite well, improved within the last 24 hours. Also able to move his arms well. Still no [employer], but approximately moving better. 12/19/2023: Patient was seen for a follow-up. Patient's and patient's daughter were present today. Patient is clinically unchanged. Continues to be very weak in the arms and legs. 12/18/2023: Patient was seen for a follow-up. Patient is much more alert and awake. He is off sedation. Please refer to examination below. 12/17/2023: Patient was seen for a follow-up. Patient's was also present, who believes that patient is doing better. Patient is nodding appropriately. He is still very weak in the arms and legs, not able to follow directions otherwise. Patient nods "no" for headache. Patient has tracheostomy. 12/16/2023: Patient was seen for a follow-up. Patient is laying in the bed, severely encephalopathic. Patient now has tracheostomy. Patient currently on Precedex 0.2 mcg/kg/h. Also on vancomycin. Patient getting hemodialysis as of now. 12/08/2023: Patient was seen for a follow-up. Patient's was also present. Per nursing report, with sedation holiday, patient opens eyes, but does not follow commands, does not track. Does not even response to yes/no questions. Patient does move right arm sometimes. Patient starts desynchronized ventilation therefore has to be put back on Precedex. Patient currently on Precedex 0.6 g per program per hour. Objective - Vital Signs Vital signs: Vital Signs Temp 98.3 F 12/20/23 16:00 Pulse 89 12/20/23 16:00 Resp 29 H 12/20/23 16:00 BP 81/50 12/20/23 16:00 Pulse Ox 97 12/20/23 16:00 FiO2 30 12/20/23 16:00 Intake & Output 12/19/23 12/20/23 12/20/23 18:59 06:59 18:59 Intake Total 262.328 610 168.997 Output Total 970 870 440 Balance -707.672 -260 -271.003 Weight 97.5 kg 97.5 kg Intake: IV 120 170 90 0.9 KVO 120 70 90 Piperacillin-Tazobactam 3 100 .375 gm In Sodium Chloride 0.9% 100 ml @ 25 mls/hr IVPB Q8HR [facility] Rx# :[id number] Intake, IV Titration 142.328 78.997 Amount DAPTOmycin 600 mg In 50 Sodium Chloride 0.9% 50 ml @ 100 mls/hr IVPB Q48H [facility] Rx#:[id number] Dexmedetomidine/0.9% NaCl 92.328 78.997 (Pmx) 400 mcg In Empty Bag 1 bag @ 0.2 MCG/KG/HR 4.925 mls/hr IV .[id number] [facility] Rx#:[id number] Tube Feeding 240 Other 200 Output: Drainage 100 80 Right Abdomen 100 80 Urine 870 870 360 Other: Voiding Method Indwelling Catheter Indwelling Catheter Indwelling Catheter # Bowel Movements 1 ABP, PAP, CO, CI - Last Documented Arterial Blood Pressure 139/59 - Exam On examination patient is laying in the bed. Patient is intubated, with tracheostomy. Patient is off sedation. Patient is still encephalopathic. He sometimes nods appropriately. Pupils are equal, round and reacting. Oculocephalics are inhibited. Corneals are present. Patient is breathing over the ventilator. Patient sometimes move his right arm, also moves his head [id number]. Patient very weak. Patient has some gross movement of the hip on command. Not able to move his fingers or the feet. Reflexes are absent at brachioradialis, knees and ankles bilaterally, whereas trace to 1 at the right biceps, and trace at the left biceps. Plantars are flat. Patient has lot of muscle wasting apparent because of the flabby skin. - Labs CBC & Chem 7: 12/21/23 02:47 12/21/23 02:47 Labs: Abnormal Lab Results - Last 24 Hours (Table) 12/19/23 12/20/23 12/20/23 Range/Units 18:32 00:13 00:17 WBC (3.8-10.6) k/uL RBC (4.30-5.90) m/uL Hgb (13.0-17.5) gm/dL Hct (39.0-53.0) % MCHC (31.0-37.0) g/dL RDW (11.5-15.5) % Neutrophils # (1.3-7.7) k/uL ABG pH 7.49 H (7.35-7.45) ABG pCO2 33 L (35-45) mmHg ABG pO2 73 L (83-108) mmHg ABG Total CO2 26 H (19-24) mmol/L Hemoglobin 7.4 L (13.0-17.5) gm/dL Chloride (98-107) mmol/L BUN (9-20) mg/dL Creatinine (0.66-1.25) mg/dL POC Glucose (mg/dL) 132 H 151 H (70-110) mg/dL Calcium (8.4-10.2) mg/dL 12/20/23 12/20/23 12/20/23 Range/Units 05:25 05:25 12:12 WBC 13.7 H (3.8-10.6) k/uL RBC 2.63 L (4.30-5.90) m/uL Hgb 7.2 L (13.0-17.5) gm/dL Hct 23.6 L (39.0-53.0) % MCHC 30.4 L (31.0-37.0) g/dL RDW 19.0 H (11.5-15.5) % Neutrophils # 11.4 H (1.3-7.7) k/uL ABG pH (7.35-7.45) ABG pCO2 (35-45) mmHg ABG pO2 (83-108) mmHg ABG Total CO2 (19-24) mmol/L Hemoglobin (13.0-17.5) gm/dL Chloride 113 H (98-107) mmol/L BUN 88 H (9-20) mg/dL Creatinine 1.89 H (0.66-1.25) mg/dL POC Glucose (mg/dL) 111 H (70-110) mg/dL Calcium 7.0 L (8.4-10.2) mg/dL Assessment and Plan Assessment: * Altered mental status, likely due to toxic metabolic encephalopathy,, r emarkably improved * Generalized weakness, 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 Patient muscle strength improved in the last 24 hours. * Abnormal EEG, with severe encephalopathy. 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 Plan: * Patient continues to have severe weakness of the arms and legs. 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 Patient has started showing improvement in the muscle strength. He has started moving his lower extremities distally and proximally and some upper extremities as well. This is suggestive of critical illness myopathy, improving now. No indication for lumbar puncture. Also discussed with patient's family, and they agreed. * Stat EEG was performed on 12/08/2023: It revealed generalized slowing of severe degree. This is suggestive of generalized cerebral dysfunction as can be seen with toxic metabolic encephalopathy or related to diffuse structural brain about a day. Clinical correlation is recommended. Sporadic, periodic generalized sharp-appearing waves were seen. This may suggest underlying cortical irritability. No electrographic seizure was recorded. * Therefore, empirically started on Keppra 500 mg daily. May discontinue Keppra, once mentation comes back to normal. * Repeat EEG on 12/12/2023: Is abnormal. The study is limited because of diffuse myogenic artifact. The background slowing is suggestive of severe encephalopathy. Otherwise no focal slowing, epileptiform discharges or seizure on the EEG. * CT head performed 12/07/2023 revealed no acute intracranial process. Some atrophy. I personally reviewed CT head agree with the findings. * Patient is generalized weak. Patient has been ICU for extended period of time. At risk for critical illness myopathy. * Patient currently on daptomycin and Zosyn. ID following. * For medical management as per critical care and other specialties on board.
--- NOTE | 2023-12-21 13:46 | P.PN ---
Subjective Progress Note Date: 12/21/23 On today's evaluation of 12/16/2023, the patient is being seen for a follow-up. The patient has been off propofol since 12/11/2023. He is requiring on and off Ativan and Dilaudid for pain control. He is not following any commands. He opens his eyes occasionally and he moves his head and thrashes. I have recommended starting him on Precedex to control his restlessness and agitation. Meanwhile, the patient is on assist-control mode of mechanical ventilation at rate of 20, tidal volume of 500, FiO2 of 30% with a PEEP of 5. Blood gas showed a pH of 7.51 with a pCO2 of 31 and pO2 of 73. Chest x-ray showing a tracheostomy tube being in the upper trachea. It is projecting over the trachea. The patient has a port in his right IJ there is also an right apical cavity that is formed over the past 1 week. There is residual consolidation and small bilateral pleural effusions. Noted the patient was given CPAP trials over the past 24 to 48 hours and he has failed due to increased tachypnea. Sharon nwhile, he is sodium levels at 141 with a BUN of 131 and creatinine of 3.4. Serum bicarb is at 27. WBC count is at 18.9 with a hemoglobin 7.1 and a platelet count of 238. Urine output is in order of 70 cc an hour. He has adequate output from his ileostomy. The abdominal wound is dehisced and there is evidence of an old infection with some purulent secretion from the wound surface in its midportion. The patient is receiving J-tube feeding and is receiving Nepro at rate of 50 cc an hour in addition to 50 cc of fluid flush on an hourly basis to prevent any clogging. He was spiking temperature over the past 24 hours. Tmax was 1101.1 F and the patient was started on a combination of Zosyn and vancomycin pending further cultures. Wound cultures have been obtained. Blood cultures also been obtained. Hemodynamically stable on no pressors. Nephrology on the case regarding his renal failure. The patient will try to get hemodialysis today. 12/17/2023, the patient is being seen for a follow-up. This morning, the patient is awake and is following simple commands only. He is profoundly weak. He remains on Precedex which is currently running at 0.2 mcg/kg/h. The patient is on assist-control motorcycle mechanical ventilation with a tidal volume of 500, rate of 20, FiO2 of 30% and PEEP of 5. Blood gas showed a pH of 7.45 with a pCO2 of 24 and pO2 of 90. Chest x-ray shows extensive cavitation in the right upper lobe with a cavitating pneumonia/infiltrate. There is also lower lobe consolidation and effusions. The patient is having scant respiratory secretions. The culture was positive for Pseudomonas aeruginosa and the patient remains on IV Zosyn. Meanwhile, the patient is on normal saline at rate of 20 cc an hour. No pressors and the patient is hemodynamically stable. The patient is on Nepro 50 cc an hour. The patient is producing adequate amount of urine ou tput in the order of 60 cc an hour. Last hemodialysis session was done yesterday. This was successful without any hemodynamic alteration. The white cell count is 16.2 with a hemoglobin 7.1 and a platelet count of 277. The patient's electrolytes show a sodium level of 143, potassium of 3.7, chlorides 109 and a bicarb of 26 with a BUN of 109 and a creatinine of 2.6. Stool for C. difficile has been negative. This morning, the patient is afebrile. Family at the bedside. Abdominal wound is well-dressed and the RAYA drain is serosanguineous. On today's evaluation of 12/18/2023, the patient is being seen for a follow-up. Awake and communicating and following commands. Nevertheless, profoundly weak, unable to move all of his extremities at this point in time. He is able to communicate by facial expression and sometimes he tries to talk. He remains on low-dose Precedex which is running at 0.2 mcg/kg/h. He is currently on pressure control mode of mechanical ventilation with a pressure control of 20, rate of 20, FiO2 30% with a PEEP of 5. pH is 7.56 with a pCO2 of 27 and pO2 of 91. The patient is undergoing hemodialysis this morning. Urine output is adequate at 75 cc an hour and the patient is on Nepro at rate of 50 cc an hour. CAT scan of the abdomen and pelvis was done yesterday. CAT scan of the chest showed extensive cavitating pneumonia involving the right lung and there is a cavitating lesion in the posterior aspect of the right upper lobe with a fluid- filled cavity/abscess. There is also opacity throughout the right lung and the left lung and this is consistent with gram-negative/pseudomonal pneumonia. There is postsurgical changes anterior abdominal wall with subcutaneous gas. No organizing fluid or collection. Also, the patient has cholelithiasis. J-tube is in good location. The patient has a wound VAC covering the anterior abdominal wall. WBC count is at 12 with a hemoglobin 7.3 and a platelet count of 275. Sodium is 147, potassium 3.4, chloride 113 bicarb is 23 BUN is 116 with a creatinine of 2.6. Antibiotic coverage remains unchanged and the patient remains on IV Zosyn. He is on Adalat 40 mg subcu every 1 week. He is on Levemir insulin 24 units daily along with NovoLog sliding scale coverage. He remains on low-dose Solu-Medrol 20 mg IV every 24 hours. 12/19/2023, the patient essentially the same as yesterday, clinically unchanged remains on Precedex running at 0.15 mcg/kg/min. Able to communicate by facial expression. Unable to move any of his extremities along or against gravity. Reflexes are diminished in all 4 extremities. Remains on pressure control of 15 cm of water with rate of 16, FiO2 of 30% with a PEEP of 5. Blood gas shows a pH of 7.49 with a pCO2 of 32 and pO2 of 91. Hemodynamically stable. Still on Nep ro at rate of 60 cc an hour. Hemodialysis was done yesterday and the patient is producing more than 40 cc an hour of urine output. BUN is 18 with a creatinine of 1.9. Sodium is at 140. The white cell count of 14.8 with a hemoglobin of 7.2 and a platelet count of 247. The patient is afebrile. The patient remains on same antibiotic coverage. Chest x-ray remains unchanged as the patient has a cavitating pneumonia involving the right upper lobe and the right lung fluid- filled cavity/abscess. Respiratory secretions noted. Active. The patient has limited complaints. Remains on mechanical ventilator. No other significant events overnight. Wound VAC is still in place. 12/20/2023, the patient is being seen for a follow-up. More alert and awake compared to yesterday. He is able to move his fingers and toes on today's evaluation. Following commands. Nevertheless, his J tube has been clogged and was unable to utilize the tube that has been some leaks around the tube. No abdominal distention. No nausea or emesis. Hemodynamically stable. Will undergo hemodialysis today. He remains on pressure control mode of mechanical ventilation at rate of 16, pressure of 10, +5 PEEP with an FiO2 of 30%. Chest x-ray from today is essentially unchanged with a stable cavity in his right upper lobe. White cell count of 15.7, hemoglobin 7.2, platelet count is 203, blood gas showed a pH of 7.49 with a pCO2 of 33 and pO2 of 73. BUN is 88 with a creatinine 1.89 and sodium is at 141 with a potassium level of 4.1. He is producing adequate amount of urine output. Fluid balance has been -900 cc over the past 24 hours. Normotensive. Remains on a combination of Zosyn and daptomycin. Remains on Levemir insulin 24 units daily. This is currently on hold as the patient has not been able to obtain enteral feeding. Wound VAC still in place. 12/21/2023, the patient remains on the mechanical ventilator. Overnight, the patient experienced discomfort in his abdomen and he was restless. Based on that, the patient was placed on a higher dose of Precedex which is currently running at 0.6 mcg/kg/h. The patient was also asynchronous with the mechanical ventilator and based on that, the patient was switched to an AC mode and currently is at a rate of 16, tidal volume of 400, FiO2 of 30% with a PEEP of 5. The patient is adequately sedated for now. Chest x-ray remains unchanged. Tracheostomy tube in place and the patient is having increased amount of respiratory secretions. J tube needs to be replaced today and this will be done by his general surgery as the tube remains clogged. Urine output is low order of 30 cc an hour. Afebrile. Remains on Zosyn and daptomycin. White cell count is 16.9, hemoglobin 7.4 and a platelet count of 280. Blood gas from today showed a pH of 7.46 with a pCO2 of 36 and pO2 of 82. Sodium levels of 144, BUN is 19 with a creatinine of 2.2 and a serum bicarb is at 23. The abdominal wound remains unchanged. RAYA drain is serosanguineous. Objective - Vital Signs Vital signs: Vital Signs Temp 97.5 F L 12/21/23 04:00 Pulse 75 12/21/23 07:00 Resp 26 H 12/21/23 07:00 BP 88/61 12/21/23 07:00 Pulse Ox 98 12/21/23 07:00 FiO2 30 12/21/23 04:46 Intake & Output 12/20/23 12/21/23 12/21/23 18:59 06:59 18:59 Intake Total 198.997 264.579 25.421 Output Total 625 615 40 Balance -426.003 -350.421 -14.579 Weight 97.5 kg 97.5 kg Intake: IV 120 180 10 0.9 KVO 120 80 10 Piperacillin-Tazobactam 3 100 .375 gm In Sodium Chloride 0.9% 100 ml @ 25 mls/hr IVPB Q8HR [facility] Rx# :[id number] Intake, IV Titration 78.997 84.579 15.421 Amount Dexmedetomidine/0.9% NaCl 78.997 84.579 15.421 (Pmx) 400 mcg In Empty Bag 1 bag @ 0.2 MCG/KG/HR 4.925 mls/hr IV .[id number] [facility] Rx#:[id number] Output: Drainage 80 40 Right Abdomen 80 40 Urine 545 575 40 Other: Voiding Method Indwelling Catheter Indwelling Catheter ABP, PAP, CO, CI - Last Documented Arterial Blood Pressure 139/59 - Exam No acute distress, arousable on Precedex and following simple commands, comfortable, still on the mechanical ventilator. The patient has a tracheostomy tube in place. HEENT examination is grossly unremarkable. Mucous membranes are moist. No oral lesions.. The patient also has a tracheostomy tube in place and the patient has a #8 Shiley tracheostomy tube. Cardiac exam revealed the PMI to be normally situated and sized. The rhythm was regular and no extrasystoles were noted during several minutes of auscultation. The first and second heart sounds were normal and physiologic splitting of the second heart sound was noted. There were no murmurs, rubs, clicks, or gallops. The patient is in sinus tachycardia. Lungs reveal mild scattered rhonchi. No wheezes or crackles. Breath sounds equal. Diminished breath sound lung base bilaterally. Abdomen distended without bowel sounds. J-tube is noted. Mid abdominal wound is covered with a wound VAC and a RAYA drain in place and output is serosanguineous. Extremities are intact. No cyanosis clubbing trace edema lower extremities bilaterally Skin is without rash or lesion. The wound at the Mediport site is dry and the area has been sutured and the site is clean for now. Neurologic examination is brief but nonfocal. - Labs CBC & Chem 7: 12/21/23 02:47 12/21/23 02:47 Labs: Abnormal Lab Results - Last 24 Hours (Table) 12/20/23 12/20/23 12/21/23 Range/Units 12:12 17:58 00:23 WBC (3.8-10.6) k/uL RBC (4.30-5.90) m/uL Hgb (13.0-17.5) gm/dL Hct (39.0-53.0) % RDW (11.5-15.5) % Neutrophils # (1.3-7.7) k/uL ABG pH (7.35-7.45) ABG pO2 (83-108) mmHg ABG Total CO2 (19-24) mmol/L Hemoglobin (13.0-17.5) gm/dL Chloride (98-107) mmol/L BUN (9-20) mg/dL Creatinine (0.66-1.25) mg/dL Glucose (74-99) mg/dL POC Glucose (mg/dL) 111 H 128 H 144 H (70-110) mg/dL Calcium (8.4-10.2) mg/dL 12/21/23 12/21/23 12/21/23 Range/Units 02:47 02:47 04:28 WBC 16.9 H (3.8-10.6) k/uL RBC 2.63 L (4.30-5.90) m/uL Hgb 7.4 L (13.0-17.5) gm/dL Hct 23.0 L (39.0-53.0) % RDW 19.1 H (11.5-15.5) % Neutrophils # 14.4 H (1.3-7.7) k/uL ABG pH 7.46 H (7.35-7.45) ABG pO2 82 L (83-108) mmHg ABG Total CO2 26 H (19-24) mmol/L Hemoglobin 6.6 L* (13.0-17.5) gm/dL Chloride 116 H (98-107) mmol/L BUN 90 H (9-20) mg/dL Creatinine 2.21 H (0.66-1.25) mg/dL Glucose 130 H (74-99) mg/dL POC Glucose (mg/dL) (70-110) mg/dL Calcium 7.0 L (8.4-10.2) mg/dL 12/21/23 Range/Units 06:46 WBC (3.8-10.6) k/uL RBC (4.30-5.90) m/uL Hgb (13.0-17.5) gm/dL Hct (39.0-53.0) % RDW (11.5-15.5) % Neutrophils # (1.3-7.7) k/uL ABG pH (7.35-7.45) ABG pO2 (83-108) mmHg ABG Total CO2 (19-24) mmol/L Hemoglobin (13.0-17.5) gm/dL Chloride (98-107) mmol/L BUN (9-20) mg/dL Creatinine (0.66-1.25) mg/dL Glucose (74-99) mg/dL POC Glucose (mg/dL) 148 H (70-110) mg/dL Calcium (8.4-10.2) mg/dL Microbiology - Last 24 Hours (Table) 12/19/23 16:44 Blood Culture - Preliminary Blood Assessment and Plan Plan: Acute hypoxemic respiratory failure with failure to wean from mechanical ventilation, S/P tracheostomy on December 10, 2023. The patient has bilateral pneumonia with a cavitary infiltrate in the right upper lobe, secondary to Pseudomonas and the patient is currently on IV Zosyn. Patient is afebrile hemodynamically stable this morning. CAT scan of the chest done on 12/17/2023 was reviewed and the patient has a cavitating cyst/abscess in the posterior aspect of the right upper lobe in addition to patchy opacities bilaterally right more than left consistent with pneumonia,/gram-negative pneumonia attributed to Pseudomonas and Klebsiella. Respiratory status was unstable overnight and the patient was placed on assist-control mode of mechanical ventilation. Adequate blood gases. Chest x-ray remains unchanged. Hospital-acquired right lung pseudomonal/Klebsiella pneumonia. Patient is currently on IV Zosyn. 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 Small bowel perforation with abdominal contamination. The patient is status post expiratory laparotomy and small bowel resection and insertion of another jejunostomy tube. The patient jejunostomy is not functional and remains clogged. However, the abdominal wound is dehisced and is infected. RAYA drain output is serosanguineous. A wound VAC was applied to the anterior abdominal wall. Peritonitis secondary to above Septic shock secondary to above, the patient is currently off pressors Atrial fibrillation with rapid medical response, currently back into normal sinus rhythm . Acute kidney injury, currently hemodialysis dependent and the patient is a dialysis cath in his left femoral vein. Hemodialysis was done on 12/20/2023, urine output is order of 20 to 30 cc an hour History of acute aspiration during upper endoscopy most likely secondary to gastric outlet obstruction secondary to non-Hodgkin's lymphoma. weight loss most likely secondary non-Hodgkin's lymphoma involving the stomach. Anemia of chronic disease, multifactorial, hemoglobin is stable for now Encephalopathy, multifactorial, could be drug related/sepsis related, essentially a component of metabolic encephalopathy, improving and the patient is currently on low-dose Precedex and the patient is communicating and following simple commands Profound weakness in all 4 extremities and the patient is unable to move at this point in time. Motor function 0 out of 5 in all 4 extremities. Positive cough. Positive gag. 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 Plan Continue ventilator support. Keep the patient on assist-control mode of mechanical ventilation. No change in the ventilator was done today. Chest x-ray findings are stable Continue IV Zosyn Continue daptomycin Stop enteral feeding and ask general surgery to reevaluate the J-tube The J-tube needs to be replaced today Hemodialysis was done on 12/20/2023 Monitor fever pattern General Surgery is on the case regarding abdominal wound PT for passive range of motion Condition remains extremely critical with poor prognosis based on the above Will continue to follow this patient along with the rest of the consultants. Condition is critical over the poor outcome based on the above. Evaluation was done more than 30 minutes. Time with Patient: Greater than 30
[2023-12-21 17:41] LABS: Glucose,Whole Blood 149 mg/dL (70-110)
--- NOTE | 2023-12-21 19:55 | P.PN ---
Progress Note - Text Progress Note Date: 12/21/23 Chief Complaint: Aspirated This is a 73-year-old patient, follows with Dr. Patricia Deal. Patient was seen this morning in the ICU. Patient's and daughter at the bedside. History obtained predominantly by the . Patient been having trouble with his stomach symptoms for close to 8 months. Patient underwent EGD by Dr. Sahara Cheng yesterday. Patient was found to have ulcerated around the antrum and obstruction to the pylorus. A lot of retained food was found. Patient aspirated. Had to be intubated and brought to the ICU. On a Levophed drip. FiO2 50 and a PEEP of 6. Patient had been losing weight lost about 25 pounds. Previously has a history of mitral valve prolapse. November 13: ICU. Patient remains on Precedex drip and propofol drip. Did not do well attempted extubation yesterday. Patient been off Levophed. NG tube to suction. Spoke to patient's and son at the bedside. Biopsy results awaited. Hemoglobin dropped to 6.9 this morning. Get a unit of blood. November 14: ICU. Up in a chair. Extubated yesterday. NG tube to suction. at the bedside. 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 Oncology was consulted. They have ordered a port. Results discussed with Dr. Sahara Cheng. General surgery was consulted for J-tube placement. Discussed with at the bedside. Patient getting IV fluids, IV Zosyn,. Patient has been on IV amiodarone for A-fib-back in sinus rhythm. Multiple PACs. Did receive unit of blood yesterday. Also IV ferric gluconate. November 15: ICU. Patient earlier today underwent jejunostomy tube placement and a port placement. Patient awake. Answering questions. NG tube to suction present. Updated patient's . Patient remains on IV amiodarone and IV Zosyn. November 16: ICU. Up in the chair. NG tube present but not to suction. Trickle feeding through the jejunostomy tube should be started today. Dietitian has been on board. IV Zosyn to continue. Patient's and his sister at the bedside. Discussed. Also spoke with Dr. Serna. Given patient has no other predisposing cardiac factors for the A-fib except acute illness. His LV function is normal. Left atrium is normal. He has already been loaded with IV amiodarone. Will switch him to oral Lopressor 12.5 twice daily. Hence will DC amiodarone. Patient yesterday had wheezing was put on bronchodilators steroids per pulmonary. November 17: Propped up in bed. NG tube was discontinued. Sinus rhythm. Remains NPO. Getting G-tube feeding at 40 cc an hour. Dietitian following. Get arrangements done for DC home tomorrow including tube feeding. Increase activity discussed with patient and elder daughter at the bedside. Still requiring oxygen. Incentive spirometry. November 18: Patient up in recliner. Earlier today spoke to administrator social welfare David. Informed patient is rather weak and will be going to the [facility]. Looking at authorization. Denae came to the room and spoke to patient his and his daughter. They are very keen to take the patient home as 3 daughters all nurses and they will take care of him at home. Patient earlier today to abdominal cramping and some loose stools.'s tube feeding was held. Told the nurse to start back at the rate of 40 cc an hour. He was before the getting it at 55 cc an hour. Incentive spirometry was again emphasized. Patient remains on 4 L of oxygen. November 19: I saw the patient this morning. Hence I am in the evening. Morning was sitting with his sons. Has some edema. Lungs had crackles I gave him 40 mg of Lasix. He did make good urine. Tube feeding was held from the previous evening of because of abdominal cramping. Acute abdominal series showed nonspecific bowel gas pattern and SBO to be ruled out. Family and patient was updated. Told him discharge will depend on day by day. Later this afternoon CT scanAnd abdomen pelvis done. Showed small bowel to be 3 point centimeter dilated. Some anasarca. Gastric findings. Gallstones. Later spoke to Dr. Irby from general surgery. They will further review and decide about further plan of action. Will give further dose of IV Lasix because of fluid overload from likely hypoalbuminemia and IV fluids previously received. Patient may take his pills by mouth. Total time spent today about 1 hour with over 40 minutes of discussion. Patient did state his breathing is better after Lasix this morning. November 20: Saw the patient this morning. was present. Patient received 2 more doses of Lasix. Diuresed well. Breathing much better. Lungs are sounding better. Discussed with Dr. Zepeda other surgeon. He is taking 3 cc out of the balloon and the gastrostomy tube. Started trickle feeding at 5 cc an hour. Will see how this does. Later in the day ran into the and the daughter again. Did update them on the same. Dilaudid was discontinued yesterday but morphine was ordered by surgery for patient having pain. Concerns about GI issues with that we will DC the morphine. As family does not want the same. November 21: Patient reclining bed. Tired. Several family members at the bedside. Including his and eldest daughter. Patient started on trickle feed yesterday at 5 cc an hour. This morning he has been on 10 cc an hour. Still having some loose stools. C. difficile was ordered. Patient on 2 L of nasal cannula. Has diuresed well. Will give an additional dose of Lasix today. If C. difficile is negative and the diarrhea is from the tube feedings we may have to use a fecal management system to keep him comfortable. Otherwise patient remains NPO. Dietitian is following the patient. Care was discussed length with patient the and daughter at the bedside. Questions answered. Liquid Tylenol has been added for abdominal pain. Avoid narcotics. Elevated white count likely from Solu-Medrol 11/23/2023--patient was feeling better today. Multiple family member at bedside. No issues overnight. Normal saline at 10 cc an hour, tube feeding at 20 cc an hour, remains on Zosyn, on 3 L oxygen. Afebrile. Heart rate 62, respiratory rate 16, blood pressure 114/67, saturating 91% on 3 L. WBCs 14.5, 9.7 hemoglobin. Platelet 242. BMP is unremarkable. Pulmonary and general surgery following. General surgery recommended to continue tube feeds at 20 cc/h. 11/24/2023--patient reported significant abdominal discomfort, also noted to have leak around G-tube. General surgery is following, evaluated the patient at bedside, adjusted tube feeds. Also reported having diarrhea, on 2 L oxygen, went up to 5 L. Blood pressure was low, 500 mL fluid bolus with close monitoring of respiratory status ordered. Currently on DuoNebs, Solu-Medrol, will continue Zosyn. Chest x-ray showed a left lower lobe infiltrate. Abdominal x-ray showed multiple air-fluid levels. CT abdomen showed multiple dilated small bowel loops, consistent with obstruction, pneumoperitoneum, cholelithiasis and ascites. WBCs 14.1, platelet 255, hemoglobin 8.9. NG tube in place. Family at bedside. patient transferred to SICU for close monitoring. 11/25/23--patient is currently in the ICU, required Levophed overnight due to low blood pressure, low urine output with creatinine trending up. Nephrology following. Patch Sander also following. Patient remains n.p.o., NG tube in place, following NG tube insertion patient had total of 2 L output, J-tube was draining approximately 200 cc over last 8 hours, continues to have abdominal pain and abdominal tenderness. Patient on IV fluids. Currently on 4 L oxygen. WBCs 8.2, hemoglobin 12.3, platelet 188. Chest x-ray earlier today showed right sided port and a stable left lung airspace disease, NG tube in place. Patient currently on Zosyn, on IV Dilaudid for pain control, on IV Solu-Medrol. General surgery planning for OR today, started on TPN. 11/26/23--patient was seen and examined today. Patient is currently sedated, intubated on mechanical ventilation. Family at bedside. Patient underwent ex lap, abdominal washout, small bowel resection with new feeding jejunostomy tube placement yesterday, small bowel was noted to be perforated with significant contamination of abdominal cavity. Patient is currently on vancomycin and Zosyn. Creatinine went up to 2.85, nephrology following, recommended to continue IV fluids, avoid nephrotoxin Preserved EF on echocardiogram.. Patient currently on Levophed, vasopressin in the ICU for close monitoring. Patient is afebrile, heart rate 122, blood pressure 129/76, currently on mechanical ventilation, sedated. November 26: ICU. Intubated. FiO2 60 and a PEEP of 5. Drips include IV amiodarone. Heart rate was up early did get fired microgram of IV digoxin and 2.5 mg of IV Lopressor. Did drop her blood pressure bit. Urine output was low. Received 80 mg of IV Lasix. Ahmet to 150 cc. Other drips include IV propofol, vasopressin, Levophed. TPN was started yesterday. Antibiotics include IV Zosyn and vancomycin. Patient has a J-tube to drainage to gravity. Spoke to patient's younger daughter and at the bedside. Prognosis guarded. Continue current treatment plan. Chest x-ray shows right lower lobe consolidation. Small pleural effusion. November 27: ICU. Intubated. FiO2 55 and a PEEP of 5. Antibiotics include IV vancomycin. Drips include Levophed at a small dose, IV vasopressin, propofol, amiodarone. Patient converted to sinus rhythm this morning. Getting TPN and normal saline at 75 cc an hour. Urine output about 25 cc an hour. RAYA drain put out about 260 cc last 12 hours that is last information technology coordinator. NG tube with bilious output. And also GI J-tube output to gravity. Spoke to patient's and daughter at the bedside. They understand patient still not out of the kee. Platelets have dropped-therefore probably Zosyn stopped. November 28: ICU. Intubated. FiO2 55 and a PEEP of 5. Patient is in sinus rhythm. Seen this morning. Due for dialysis catheter this afternoon. Urine output about 15 to 20 cc an hour. Patient is on IV Lasix 80 mg every 12. Saline is KVO. Drips include IV propofol vasopressin. Patient having significant output through the RAYA drain and the jejunostomy tube to drainage. Creatinine had been getting worse. Patient's at the bedside. Understands patient's remains critically ill. Hemoglobin is down to 7. Given that patient's pain hypotensive, and on vasopressin we will give a unit of blood with dialysis. Getting TPN antibiotic changed to IV meropenem November 29: ICU. Intubated. FiO2 55 and a PEEP of 5. Remains in sinus rhythm. Getting TPN. Dialyzed yesterday and this morning. About 1000 cc removed. Urine output about 50 cc an hour. Patient is on IV propofol. Off vasopressin. Still having significant output through the RAYA drain and jejunostomy tube. Patient received a second unit of blood yesterday. Patient's and daughter at the bedside. I did discuss guarded prognosis. Did asked them to revisit CODE STATUS.. Getting IV meropenem. November 30: ICU. Intubated. Did get a sedation holiday t today. Back on propofol. Getting TPN. Still getting IV Lasix. Fair urine output. Jejunostomy tube in last 8 hours was about 30 cc output. RYAA drain in the 8 hours had about 180 cc output. Telemetry shows sinus rhythm. NG tube has low intermittent suction with negative output. On the vent with FiO2 40 and a PEEP of 5. No hemodialysis today. Discussed with the and eldest daughter at the bedside. IV meropenem-patient's sputum had grown Citrobacter freundii and Pseudomonas aeruginosa. December 01: ICU. Intubated. Jejunostomy tube to gravity. Only 10 cc output in last 24 hours. RAYA drain. About 190 cc last 6 hours. Nasogastric tube to low intermittent suction. Minimal output. Patient is on a small dose of propofol 5 mics. Telemetry shows sinus rhythm. Patient started on small dose of Cleviprex this morning. Blood pressure. Getting TPN. FiO2 35 and PEEP of 5. Discussed with the at the bedside. Hemodialysis today December 02: ICU. Patient remains intubated. FiO2 35 PEEP of 5. Patient is on IV propofol. IV Cleviprex was discontinued yesterday. Also remains on TPN. Telemetry shows sinus rhythm. NG tube is good no output. Still significant output through the RAYA drain. Jejunostomy tube has minimal output. Patient had hemodialysis today 2 L of fluid was removed. Oral half liters yesterday. Patient getting a sedation holiday. General Surgery started the patient on trickle feeding at 10 cc an hour. I did speak to patient's at the bedside. Prognosis remains guarded but there is some improvement. December 03: ICU. Intubated. FiO2 35 PEEP of 5. Drips include IV propofol and Precedex. Getting TPN. Telemetry shows sinus rhythm. Remains on IV Lasix 80 mg twice a day. IV meropenem. Because patient gets easily agitated when transitioning off propofol he has been switched over to Precedex. For hemodialysis today. December 04: ICU. Intubated. FiO2 35 and a PEEP of 5. Patient been taken off propofol is on Precedex. Telemetry sinus rhythm. J-tube with minimal output. RAYA drain with decreased output. NG tube to suction minimal output. Family wanted to hold off trickle feeding until cleared by oncology. Which he did today. Trickle feeding will be started today. Spoke to patient's and one of the daughters at the bedside. Dr. Russ is spoken to the earlier this point they want to do further tracheostomy tube. December 05: ICU. Intubated. FiO2 35 PEEP of 5. Patient remains on Precedex and PPN. Patient's dialysis catheter was not functioning is getting another [address] Bobby this afternoon. Remains on IV meropenem. Has a RAYA drain in the jejunostomy tube to gravity. NG tube to low intermittent suction. No family at the bedside. December 06: ICU. Intubated. FiO2 35 PEEP of 5. RAYA drain putting out about approximately 120 cc per shift. Patient on IV Precedex. FiO2 35 PEEP of 5. Telemetry-sinus rhythm. Patient occasionally been put on small dose of Levophed specially for hemodialysis getting it today. Also started on midodrine for low blood pressure. Tolerating tube feeding at 10 cc an hour. Also had a bowel movement. Mentation has not improved. Even with sedation holiday. Neurology consulted. CT brain shows no acute process. December 07: ICU. Intubated. FiO2 35 PEEP of 5. Telemetry-sinus rhythm. NG tube to suction low intermittent minimal output. Getting TPN. Tube feeding at 20 cc an hour. RAYA drain averaging over 100 cc per shift. Remains on Precedex. EEG was done today. Discussed with at the bedside. Family is currently not inclined for tracheostomy tube today. Day 13 of being intubated December 08: ICU. Intubated. FiO2 35 PEEP of 5. Patient is put on back on propofol per cable placer Dr. BINGHAM. EEG did show some potential for spikes was put on Keppra by neurology. Telemetry shows sinus rhythm. NG tube to suction with no output. Tube feeding was put on hold because of questionable discharge on the site. Being restarted today. RAYA drain is 150 cc last 12-hour shift. Patient does open eyes. Family has decided to proceed with tracheostomy and surgery has been consulted for the same. Spoke to the at the bedside. For hemodialysis today. December 09: ICU. Intubated FiO2 35 PEEP of 5. Patient seen this morning. Pending tracheostomy placement this afternoon. Remains NPO. G-tube feeding was held overnight. RAYA drain putting out about 100 cc per shift. Received a unit of blood for hemoglobin of 6.6. On 25 mics of propofol. Getting TPN and meropenem. Spoke to the at the bedside. Patient became hypotensive with dialysis yesterday. Levophed had to be given. Only 800 cc were removed yesterday. No hemodialysis today. December 10: ICU . FiO2 35, PEEP 5. Tracheostomy was done yesterday by Dr. Ewing. G-tube feeding was started today at 10 cc an hour. Dietitian following. RAYA drain 12-hour shift overnight put out about 30 cc. Patient hemodialysis to day about 1 L removed. Patient has a sacral stage II decub with a dressing. On propofol 20 mics. Spoke to at the bedside. TPN. Meropenem was discontinued yesterday. December 11: ICU. FiO2 35 PEEP of 5. Tracheostomy. NG tube was discontinued. No hemodialysis today. Telemetry shows sinus rhythm. J-tube feeding at 40 cc an hour. TPN was discontinued. Patient has been off propofol also. PICC line in place. Patient had a EEG done today. Spoke to patient's elder daughter at the bedside. May open eyes occasionally. Not really following commands December 12: 73-year-old white male with history of chronic abdominal pain for the last 8 months has been treated with Protonix 40 mg daily for the last 3 months with no improvement. Patient had a 22 pound weight loss in the last [address] of the abdomen and pelvis 3 weeks ago showed thickening of the antral wall with pathological adenopathy posterior to the stomach suspicious of neoplasm. Today the patient underwent elective upper endoscopy to evaluate further, patient received IV sedation by anesthesia endoscope was inserted into the mouth, esophagus was intubated without any difficulty there was evidence of large amount of liquid and solid food noted in the stomach suggestive of gastric outlet obstruction. Scope could not be advanced through the pylorus, however in the prepyloric area there was a large superficial ulceration identified with multiple biopsies were done from this area. The body cardia and fundus could not adequately visualize because of large amount of retained food in the stomach. Scope was withdrawn back to the stomach and upon careful examination the mucosa of the antrum body and cardia as well as the fundus appeared normal. Procedure was being performed and biopsies were done patient threw up and subsequently became hypoxic there was clearly evidence of witnessed aspiration anesthesia intubated the patient, procedure was terminated, and the patient was transferred to the ICU, this consult was initiated. Patient is now on assist- control rate of 20 tidal volume 500 FiO2 70% PEEP of 10 ABG is pending, earlier ABG showed profound hypoxia patient is on propofol at 50 mcg/kg/min, next ABG is pending. Chest x-ray showed chronic changes without evidence of acute pulmonary disease. 12/14/2023 Patient remains in the ICU, generally weak Patient s/p tracheostomy G-tube in place Patient still has fever and mild tachycardia but tachycardia is improving, leukocytosis improving as well. Hemoglobin 8.1. Creatinine 3.0 and nephrology team on the case. He has mild transaminitis. He was getting Zosyn which is held now, nowCalcitonin is pending 12/14 Patient shon in the ICU, he is still encephalopathic and does not follow command. Neurology service following closely. He is status post tracheostomy. Also J-tube His abdomen looks soft and on exam he has mild coarse secretions. Has a Abarca catheter with clear urine His pro- Calcitonin is still high but trending down 3.0 down to 1.9 No fever this morning WBC slightly less at 16.3 Patient currently off antibiotic He is getting steroids IV Solu-Medrol which might contribute to his leukocytosis. Also he is on IV Keppra by neurologist 12/14 Patient remains confused in the ICU calm, he had a good night per family member and staff. Tracheostomy in place Patient has occasional coughing spells, patient also developed some partial wound dehiscence in his abdomen, surgery team are aware and are going to evaluate the patient Patient also has positive blood culture from 12/13: Gram-positive cocci in clusters. Patient received one-time dose of IV vancomycin. Patient also had fever 2 days ago, leukocytosis and total elevated pro- Calcitonin. Therefore we are going to consult infectious disease team. As his antibiotic Zosyn was stopped few days ago. Currently patient KVO He has good urine output December 16: ICU. Trach. Congested. Requiring suctioning. No hemodialysis today. Getting G-tube feeding at 50 cc an hour. FiO2 30 and a PEEP of 5. On IV Precedex. Eyes open. Does follow commands. Weakness in the limbs. Spoke to at the bedside. Sputum positive for Klebsiella oxytoca and Pseudomonas aeruginosa. December 17: ICU. On trach. Currently cough with increased secretions requiring suctioning. Adding scopolamine patch. Very much clear secretion. CT scan is showing right upper lobe lung abscess. G-tube feeding at 50 cc an hour. Hemodialysis today. RAYA drain putting out about 140 cc a shift. Serous. Has been midline incision wound dehiscence. Wound VAC was placed on it. Stage II ulcer. Patient is on Precedex drip 0.15 mics. Urine output is good about 6200 cc an hour. Spoke to the at the bedside. Patient currently not stable for transfer to LTAC. No limb movements. PT OT on the case. otherwise awake does follow simple commands by face December 18: ICU. Patient seen this afternoon. Because of pain getting IV Dilaudid. No nasal cannula on room air. Does move about his head. Telemetry shows sinus rhythm. FiO2 30 and a PEEP of 5. Patient started on scopolamine patch yesterday has decreased secretions today. Good urine output. Tube fee ding at 60 cc an hour. Wound VAC on incisional would be high since in place. RAYA drain continues to make output. No hemodialysis today December 19: ICU. Patient was seen earlier today. FiO2 30 and a PEEP of 5. Sinus rhythm. Awake. Does follow with eyes. Tube feeding got obstructed tube feedings held for now. Increasing oozing from the incision drainage site. at the bedside. Wound VAC remains in place. Good urine output. Dialysis held today. December 20: ICU. Per nephrology no dialysis today. 1 L fluid bolus given. J- tube was replaced over the wire by Dr. Ewing from surgery. On Precedex 0.6 mcg. FiO2 30 and a PEEP of 5 on the vent. RAYA drain putting out of around 100 cc per shift. at the bedside. Drainage through the abdominal incision wound. CT scan abdomen showed tube placement in the small bowel. Stable large right lower quadrant mass with a fluid level. Active Medications Acetaminophen (Acetaminophen Tab 325 Mg Tab) 650 mg PO Q4HR PRN PRN Reason: Fever and/ or Pain Last Admin: 12/09/23 20:09 Dose: 650 mg Acetaminophen (Acetaminophen Oral Susp (Peds) 3,840 Mg/120 Ml Bottle) 480 mg PO Q4HR PRN PRN Reason: Fever Albuterol/Ipratropium (Ipratropium-Albuterol 3 Ml Neb) 3 ml INHALATION RT-QID [facility] Last Admin: 12/21/23 19:51 Dose: 3 ml Albuterol/Ipratropium (Ipratropium-Albuterol 3 Ml Neb) 3 ml INHALATION RT-Q2H PRN PRN Reason: Shortness Of Breath Or Wheezing Last Admin: 12/03/23 03:45 Dose: 3 ml Chlorhexidine Gluconate (Chlorhexidine Gluconate 15 Ml Cup) 15 ml MUCOUS MEM BID [facility]MAL Last Admin: 12/21/23 08:07 Dose: 15 ml Darbepoetin Scooby (Darbepoetin Scooby 40 Mcg/0.4 Ml Syringe) 40 mcg SQ Q7D NIRMAL Last Admin: 12/17/23 07:51 Dose: 40 mcg Dextrose/Water (Dextrose 50% Syringe 50 Ml) 25 ml IVP PER PROTOCOL PRN; Protocol PRN Reason: Hypoglycemia Dextrose/Water (Dextrose 50% Syringe 50 Ml) 50 ml IVP PER PROTOCOL PRN; Protocol PRN Reason: Hypoglycemia Hydromorphone HCl (Hydromorphone 0.5 Mg/0.5 Ml Syringe) 0.25 mg IVP Q3H PRN PRN Reason: Pain Last Admin: 12/21/23 18:34 Dose: 0.25 mg Sodium Chloride (Saline 0.9%) 1,000 mls @ 20 mls/hr IV .Q24H NIRMAL Last Admin: 12/21/23 15:29 Dose: 20 mls/hr Dexmedetomidine HCl 400 mcg/ (IV Solution) 100 mls @ 4.925 mls/hr IV .[id number] [facility]MAL; Protocol Last Titration: 12/21/23 16:21 Dose: 0.4 mcg/kg/hr, 9.85 mls/hr Piperacillin Sod/Tazobactam (Sod 3.375 gm/ Sodium Chloride) 100 mls @ 25 mls/hr IVPB Q12HR [facility]MAL; Protocol Last Admin: 12/21/23 08:08 Dose: 25 mls/hr Daptomycin 600 mg/ Sodium (Chloride) 50 mls @ 100 mls/hr IVPB Q48H NIRMAL; Pr otocol Last Admin: 12/21/23 08:08 Dose: 100 mls/hr Norepinephrine Bitartrate 4 mg (/ Sodium Chloride) 254 mls @ 11.259 mls/hr IV .[id number] NIRMAL; Protocol Last Admin: 12/21/23 07:45 Dose: Not Given Insulin Aspart (Insulin Aspart (Novolog) 100 Unit/Ml Vial) 0 unit SQ 0000,0600,1200,1800 [facility]; Protocol Last Admin: 12/21/23 18:37 Dose: Not Given Insulin Detemir (Insulin Detemir (Levemir) 100 Unit/Ml Syr) 24 unit SQ DAILY@0700 [facility] Last Admin: 12/21/23 06:57 Dose: Not Given Iopamidol (Iopamidol Contrast (Oral Use) Vial) 30 ml PO Q60M PRN PRN Reason: CT Scan Stop: 12/22/23 09:35 Last Admin: 12/21/23 10:42 Dose: 30 ml Levetiracetam (Levetiracetam Iv 500 Mg/5 Ml Vial) 500 mg IVP Q24HR [facility] Last Admin: 12/21/23 08:07 Dose: 500 mg Lorazepam (Lorazepam 2 Mg/Ml Inj) 1 mg IV Q4HR PRN PRN Reason: Anxiety Last Admin: 12/21/23 03:23 Dose: 0.5 mg Metoprolol Tartrate (Metoprolol Tartrate 5 Mg/5 Ml Vial) 2.5 mg IVP Q6HR PRN PRN Reason: Heart Rate - HIGH Last Admin: 11/27/23 08:25 Dose: 2.5 mg Midodrine (Midodrine 5 Mg Tab) 5 mg PO AC-TID [facility] Last Admin: 12/21/23 15:29 Dose: Not Given Miscellaneous Information (Magnesium Replacement Protocol 1 Each Misc) 1 each MISCELLANE DAILY PRN; Protocol PRN Reason: Per Protocol Multi-Ingredient Ointment (Zinc Oxide 20% Oint 28.4 Gm Tube) 1 applic TOPICAL BID PRN; Protocol PRN Reason: Skin Irritation Naloxone HCl (Naloxone 0.4 Mg/Ml 1 Ml Vial) 0.2 mg IV Q2M PRN PRN Reason: Opioid Reversal Pantoprazole Sodium (Pantoprazole 40 Mg/10 Ml Vial) 40 mg IVP BID [facility] Last Admin: 12/21/23 08:07 Dose: 40 mg Petrolatum (Zinc Oxide Paste (Z-Guard) 1 Applic) 1 applic TOPICAL BID [facility]; Protocol Last Admin: 12/21/23 18:37 Dose: 1 applic Past medical history to include: GERD Social history: . No smoking. Physical examination: VITAL SIGNS: 97, 74, 93, 85 x 57, 98% on the ventilator GENERAL: Eyes open moving head. Left groin dialysis access. EYES: Pupils equal. Conjunctiva edouard l. HEENT: External appearance of nose and ears normal, tracheostomy-with secretions NECK: JVD unable to assess; masses not palpable. HEART: First and second heart sounds are normal; edema, present LUNGS: Respiratory rate increased, decreased breath sounds ABDOMEN: Soft, some tenderness. Liver spleen not palpable, no masses palpable..jejunostomy tube-attached to tube feeding . RAYA drain. Incision with stitches with - wound VAC PSYCH: Unable to assess NEURO: Very little movement in limbs. Eyes open. Moves head to command INVESTIGATIONS, reviewed in the clinical context: December 20: White count 16.9 hemoglobin 7.4 platelets 280 potassium 4.2 BUN 90 creatinine 2.21 December 19: White count 13.7 hemoglobin 7.2 platelets 2 3 potassium 4.1 BUN 88 creatinine 1.89 December 18: White count 14.8 hemoglobin 7.2 platelets 248 potassium 4.1 BUN [address] chest abdomen without contrast [December 16] right upper lung cavitary lesion with air-fluid level in the posterior aspect and a larger cavitary lesion possibly within the lung parenchyma itself. Extending down towards the diaphragm additional airspace opacities in the left lung base. December 17: White count 12.5 hemoglobin 7.3 platelets 275 sodium 147 potassium 3.4 BUN 116 creatinine 2.68 December 16: White count 6.2 hemoglobin 7.1 platelets 237 sodium 143 potassium 3.7 BUN 109 creatinine 2.68 December 11: White count 7.9 hemoglobin 7.4 platelets 151 sodium 133 potassium 4 BUN 88 creatinine 2.96 December 10: White count 21.3 hemoglobin 7.4 platelets 129 potassium 4.2 BUN 111 creatinine 3.77 December 09: White count 26.1 hemoglobin 8.6 platelets 154 potassium 4.1 BUN 86 creatinine 3.31. Hemoglobin this morning was 6.6 prior to transfusion EEG-evidence of generalized cerebral dysfunction and sporadic intermittent higher amplitude sharply contoured waves mainly bifrontal. Showing cortical irritability. 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 Serosal fibrous adhesions. Viable margins. December 04: White count 10.2 hemoglobin 8 platelets 90 sodium 130 potassium 4 BUN 70 creatinine 2.89 Sputum culture: [November 25]: Citrobacter freundii. Pseudomonas aeruginosa November 20: White count 14.4 hemoglobin 8.8 platelets 229 potassium 4.1 BUN [address] scan abdomen [November 19] possible small bowel obstruction Stool: C. difficile negative November 15: WBC 13 hemoglobin 7.7 platelets 248 potassium 4.3 creatinine 0.87 2D echo: EF 55 to 60%. Kidneys bladder: Unremarkable November 13: White count 12 hemoglobin 6.9 platelets 276 potassium 4.4 creatinine 1.21 magnesium 1.8 iron 6 TIBC 365% saturation 1.64 transferrin 261 ferritin 34.6 B12 569 folate 4.4 November 11: Creatinine 0.86 EGD: Large amount of retained solid liquid food noted in the stomach. Large superficial gastric antral ulceration involving most of the antrum extending into the pylorus causing pyloric stenosis. Biopsies were obtained. Chest x-ray film personally reviewed by me-scattered infiltrates Assessment plan: -Aspiration pneumonitis bilateral from retained gastric contents mostly food and liquids, causing acute hypoxic respiratory failure: On presentation: Subsequent sputum culture November 25: Citrobacter freundii, Pseudomonas aeruginosa. December 13: Klebsiella oxytoca, Pseudomonas aeruginosa IV meropenem-was received originally. Now receiving IV daptomycin and IV Zosyn. Pulmonary following -Probable lung abscess larger 1 on the right side-patient cultures are growing Pseudomonas and Klebsiella oxytoca IV Zosyn -Acute pulmonary edema and fluid overload from hypoalbuminemic state and fluids from IV.:: Has been getting Lasix and dialysis -Altered mentation. Possibly encephalopathy. Could be delirium.: Better CT brain [December 06] nothing acute Neurology following EEG-evidence of generalized cerebral dysfunction and sporadic intermittent higher amplitude sharply contoured waves mainly bifrontal. Showing cortical irritability. Keppra was started on December 07 -Critical care poly- Pedro neuropathy PT OT -Gallstones, asymptomatic -Small l bowel perforation at site of jejunostomy tube tip with balloon..: Portion of small bowel resected. On November 24. New J-tube was placed.- drainage to gravity:-Now discontinued December 19: J-tube blocked. J-tube replaced on December 20 over wire -Acute kidney injury. Possible ATN from hypotensive shock: Slow to respond Renal ultrasound unremarkable. Started on renal replacement therapy on November 28. Followed by nephrology -Nutrition Jejunostomy tube placed November [address] Ewing Received TPN -Midline abdominal incision wound dehiscence Wound VAC placed -Acute recurrent atrial fibrillation-converted to sinus rhythm Received IV amiodarone. Cardiology following Lopressor -Acute hypoxic respiratory failure from aspiration pneumonia, status post ventilator assisted: Reintubated November 25. FiO2 35 PEEP of 5 Tracheostomy tube-by Dr. Zepeda on December 09 -Septic shock, recovered -Hypertension Patient started on Cleviprex-discontinued -Intermittent hypotension Intermittent use of Levophed. 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 Also anemia of blood draw. Iron deficiency anemia Received 3rd unit of blood . IV iron. -Severe thrombocytopenia. Would consider coagulation disorder secondary to infection., In the setting of underlying lymphoma.: Recovered Hematology following. -Acute blood loss anemia, Has received 3 units of blood -Sacral stage II decub ulcer Dressing in place -GERD PPI -Acute diarrhea secondary to tube feeding.: Resolved C. difficile ruled out. -Large superficial gastric antral ulceration involving the gastric antrum extending into the pylorus with gastric outlet obstruction. 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 Port placed. For outpatient PET scan. -Full code No dialysis today. Fluid bolus. J-tube changed over guidewire. Discussed with at the bedside. Prognosis remains guarded. Past Medical History Past Medical History: GERD/Reflux History of Any Multi-Drug Resistant Organisms: None Reported Past Surgical History: Heart Catheterization Additional Past Surgical History / Comment(s): colonsocopy,spinal injection, Past Anesthesia/Blood Transfusion Reactions: No Reported Reaction Past Psychological History: No Psychological Hx Reported Smoking Status: Never smoker Past Alcohol Use History: None Reported Past Drug Use History: None Reported
[2023-12-22 00:05] LABS: Glucose,Whole Blood 125 mg/dL (70-110)
[2023-12-22 05:21] LABS: ABG Base Excess -1.3 mmol/L; ABG HCO3 22 mmol/L (21-25); ABG Oxygen Saturation 96.5 % (94-97); ABG PCO2 32 mmHg (35-45); ABG PH 7.46 (7.35-7.45); ABG PO2 82 mmHg (83-108); ABG TCO2 23 mmol/L (19-24); Allen Test Performed? Yes
--- NOTE | 2023-12-22 05:41 | P.PN ---
Progress Note - Text Progress Note Date: 12/22/23 CHIEF COMPLAINT: Abdominal pain HISTORY OF PRESENT ILLNESS: Patient remains in the ICU on mechanical ventilation. Has tracheostomy. Patient's J-tube was replaced bedside in the ICU yesterday. CT-AP with contrast through the J tube confirmed position and TFs were started. Patient tolerated TFs for most of the day however I was paged later in the evening that patient was having a lot of drainage around J tube site and tube feeds were held. PHYSICAL EXAM: VITAL SIGNS: Reviewed. GENERAL: no acute distress. HEENT: Tracheostomy site clean dry and intact ABDOMEN: Soft. Nondistended. Midline incision with wound VAC in place and intact. J-tube in place with yellowish drainage noted on dressing and onto the abdominal binder. There is also a small ulceration under the bolster of the J- tube that is located at the 9 o'clock position the J-tube. RAYA drain in place with serous output ASSESSMENT: 1. 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 Status post J-tube placement and revision for small bowel obstruction 2. Abdominal wound dehiscence status post wound VAC placement 3. Status post tracheostomy PLAN: -Will deflate J tube balloon this morning and again attempt Trickle Feeds. -Wound vac to be changed MON, WED, FRI by Wound Care -Keep patient strict n.p.o. -Do not place medications down J-tube -Tube feeds on hold -Zinc oxide cream ordered to place around J-tube -Continue ICU management -Continue supportive care Dick Ewing DO [facility] [phone]
[2023-12-22 06:42] LABS: Anisocytosis Slight; Basophils % (A) 0 %; Eosinophils % (A) 0 %; HCT 24.1 % (39.0-53.0); HGB 7.7 gm/dL (13.0-17.5); Hypochromasia Slight; Lymphocytes # (A) 1.4 k/uL (1.0-4.8); Lymphocytes % (A) 11 %; MCHC 32.1 g/dL (31.0-37.0); MCV 87.4 fL (80.0-100.0); Mean Platelet Volume 9.4; Monocytes # (A) 0.3 k/uL (0-1.0); Monocytes % (A) 2 %; Neutrophils # (A) 10.5 k/uL (1.3-7.7); Neutrophils % (A) 85 %; Platelet Count 219 k/uL (150-450); RBC 2.75 m/uL (4.30-5.90); RDW 18.9 % (11.5-15.5); WBC 12.3 k/uL (3.8-10.6)
[2023-12-22 06:43] LABS: African American GFR (CKD) 32 (>60 ml/min/1.73 sqM); Anion Gap 9 mmol/L; Blood Urea Nitrogen 91 mg/dL (9-20); Calcium 7.1 mg/dL (8.4-10.2); Carbon Dioxide 20 mmol/L (22-30); Chloride 120 mmol/L (98-107); Glucose 122 mg/dL (74-99); Non-African American GFR(CKD) 27 (>60 ml/min/1.73 sqM); Potassium 4.3 mmol/L (3.5-5.1); Sodium 149 mmol/L (137-145)
--- NOTE | 2023-12-22 06:55 | XR ---
EXAMINATION TYPE: XR chest 1V portable DATE OF EXAM: 12/22/2023 COMPARISON: 12/21/2023 HISTORY: Ventilation. TECHNIQUE: Single frontal view of the chest is obtained. FINDINGS: Left PICC line in Mediport catheter unchanged in position. Trach tube 4.4 cm above the car sylvie. Right lower lobe opacity unchanged. Left lung remains clear. Cardiothymic pulmonary vasculature are n ormal. IMPRESSION: 1. Trach tube 4.4 cm above the josseline. 2. No change in the right lower lobe opacity. IMPRESSION: No acute process. [facility], , 12/22/2023 6:53 AM
--- NOTE | 2023-12-22 09:26 | P.PN ---
Subjective Progress Note Date: 12/21/23 Principal diagnosis: Reason for follow-up is pneumonia and bacteremia Patient is 73-year-old with male initial presentation to the hospital on 11/11/2021 for after the patient did have aspiration while undergoing elective endoscopy, diagnosed with a non-Hodgkin of, subsequently did have explained laparotomy for perforated small bowel abdominal washout and feeding jejunostomy tube patient did require dialysis catheter placement for dialysis during this hospital stay and tracheostomy for respiratory failure, infectious was consulted for fever. On today's evaluation that is 12/21/2023,the patient did have resolution of his fever and no fever any more than 24 hours no patient needs to be on the vent through the trach FiO2 is at 30% no significant purulent secretion through the ET or any other changes reported. Patient white count is slight up to 16.9 with a creatinine of 2.21 blood culture repeat so far pending Objective - Vital Signs Vital signs: Vital Signs Temp 97.0 F L 12/21/23 17:00 Pulse 82 12/21/23 20:01 Resp 23 12/21/23 19:00 BP 95/68 12/21/23 19:00 Pulse Ox 98 12/21/23 19:00 FiO2 30 12/21/23 19:46 Intake & Output 12/21/23 12/21/23 12/22/23 06:59 18:59 06:59 Intake Total 255.742 5871.913 35 Output Total 615 755 120 Balance -350.421 676.913 -85 Weight 97.5 kg 97.5 kg Intake: IV 180 1230 10 0.9 KVO 80 80 10 DAPTOmycin 600 mg In 50 Sodium Chloride 0.9% 50 ml @ 100 mls/hr IVPB Q48H [facility] Rx#:[id number] Piperacillin-Tazobactam 3 100 .375 gm In Sodium Chloride 0.9% 100 ml @ 25 mls/hr IVPB Q12HR [facility] Rx #:[id number] Piperacillin-Tazobactam 3 100 .375 gm In Sodium Chloride 0.9% 100 ml @ 25 mls/hr IVPB Q8HR [facility] Rx# :[id number] Sodium Chloride 0.9% 1, 1000 000 ml @ 999 mls/hr IV . Q1H1M [facility] Rx#:[id number] Intake, IV Titration 84.579 126.913 Amount Dexmedetomidine/0.9% NaCl 84.579 126.913 (Pmx) 400 mcg In Empty Bag 1 bag @ 0.2 MCG/KG/HR 4.925 mls/hr IV .[id number] [facility] Rx#:[id number] Tube Feeding 30 10 Other 45 15 Output: Drainage 40 170 70 Right Abdomen 40 170 70 Urine 575 585 50 Other: Voiding Method Indwelling Catheter Indwelling Catheter ABP, PAP, CO, CI - Last Documented Arterial Blood Pressure 139/59 - Exam GENERAL DESCRIPTION: An elderly male lying in bed in no distress RESPIRATORY SYSTEM: Unlabored breathing , decreased breath sounds at bases HEART: S1 S2 regular rate and rhythm , ABDOMEN: Soft , no tenderness EXTREMITIES: No edema feet - Labs CBC & Chem 7: 12/22/23 05:27 12/22/23 05:27 Labs: Abnormal Lab Results - Last 24 Hours (Table) 12/21/23 12/21/23 12/21/23 Range/Units 00:23 02:47 02:47 WBC 16.9 H (3.8-10.6) k/uL RBC 2.63 L (4.30-5.90) m/uL Hgb 7.4 L (13.0-17.5) gm/dL Hct 23.0 L (39.0-53.0) % RDW 19.1 H (11.5-15.5) % Neutrophils # 14.4 H (1.3-7.7) k/uL ABG pH (7.35-7.45) ABG pO2 (83-108) mmHg ABG Total CO2 (19-24) mmol/L Hemoglobin (13.0-17.5) gm/dL Chloride 116 H (98-107) mmol/L BUN 90 H (9-20) mg/dL Creatinine 2.21 H (0.66-1.25) mg/dL Glucose 130 H (74-99) mg/dL POC Glucose (mg/dL) 144 H (70-110) mg/dL Calcium 7.0 L (8.4-10.2) mg/dL Cortisol (3.1-22.4) UG/DL 12/21/23 12/21/23 12/21/23 Range/Units 02:47 04:28 06:46 WBC (3.8-10.6) k/uL RBC (4.30-5.90) m/uL Hgb (13.0-17.5) gm/dL Hct (39.0-53.0) % RDW (11.5-15.5) % Neutrophils # (1.3-7.7) k/uL ABG pH 7.46 H (7.35-7.45) ABG pO2 82 L (83-108) mmHg ABG Total CO2 26 H (19-24) mmol/L Hemoglobin 6.6 L* (13.0-17.5) gm/dL Chloride (98-107) mmol/L BUN (9-20) mg/dL Creatinine (0.66-1.25) mg/dL Glucose (74-99) mg/dL POC Glucose (mg/dL) 148 H (70-110) mg/dL Calcium (8.4-10.2) mg/dL Cortisol 24.7 H (3.1-22.4) UG/DL 12/21/23 12/21/23 Range/Units 11:44 17:40 WBC (3.8-10.6) k/uL RBC (4.30-5.90) m/uL Hgb (13.0-17.5) gm/dL Hct (39.0-53.0) % RDW (11.5-15.5) % Neutrophils # (1.3-7.7) k/uL ABG pH (7.35-7.45) ABG pO2 (83-108) mmHg ABG Total CO2 (19-24) mmol/L Hemoglobin (13.0-17.5) gm/dL Chloride (98-107) mmol/L BUN (9-20) mg/dL Creatinine (0.66-1.25) mg/dL Glucose (74-99) mg/dL POC Glucose (mg/dL) 156 H 149 H (70-110) mg/dL Calcium (8.4-10.2) mg/dL Cortisol (3.1-22.4) UG/DL Microbiology - Last 24 Hours (Table) 12/19/23 16:44 Blood Culture - Preliminary Blood Assessment and Plan (1) Sepsis Current Visit: Yes Status: Acute Code(s): A41.9 - SEPSIS, UNSPECIFIED ORGANISM SNOMED Code(s): 74358678 (2) Pneumonia Current Visit: Yes Status: Acute Code(s): J18.9 - PNEUMONIA, UNSPECIFIED ORGANISM SNOMED Code(s): 106088159 (3) Bacteremia Current Visit: Yes Status: Acute Code(s): R78.81 - BACTEREMIA SNOMED Code(s): 4816375 Plan: 1patient with sepsis in this patient has been in the hospital for 34 days before this initial consultation with initial admission to the hospital after elective EGD with the patient was noted to have gastric outlet obstruction and did aspirated subsequently the patient did have laparotomy for perforated small bowel status post resection and jejunostomy tube placement noted to have evidence of a midline abdominal wound dehiscence did have a apical cavitary lesion on the right side with his sputum showing Pseudomonas and Klebsiella, the patient also have positive blood culture with coagulase-negative staph patient did have a PICC line as well as dialysis catheter etiology of his sepsis is likely multifactorial in this patient who did have a complicated history as the patient has been the hospital for more than a month, including pneumonia and possible line related sepsis versus abdominal source 2-patient patient did spike a fever for the patient did have blood pressures of which are currently pending, blood culture has to obtain blood cultures from his dialysis catheter discussed with the nursing staff 3we will continue with Zosyn and daptomycin and monitor clinical course closely Dictation was produced using [employer] dictation software. please excuse any grammatical, word or spelling errors. Time with Patient: Less than 30
[2023-12-22] MEDS: SODIUM CHLORIDE 0.45% 1,000 ML IV SCH (10:09)
--- NOTE | 2023-12-22 11:50 | P.PN ---
Subjective Progress Note Date: 12/22/23 On today's evaluation of 12/16/2023, the patient is being seen for a follow-up. The patient has been off propofol since 12/11/2023. He is requiring on and off Ativan and Dilaudid for pain control. He is not following any commands. He opens his eyes occasionally and he moves his head and thrashes. I have recommended starting him on Precedex to control his restlessness and agitation. Meanwhile, the patient is on assist-control mode of mechanical ventilation at rate of 20, tidal volume of 500, FiO2 of 30% with a PEEP of 5. Blood gas showed a pH of 7.51 with a pCO2 of 31 and pO2 of 73. Chest x-ray showing a tracheostomy tube being in the upper trachea. It is projecting over the trachea. The patient has a port in his right IJ there is also an right apical cavity that is formed over the past 1 week. There is residual consolidation and small bilateral pleural effusions. Noted the patient was given CPAP trials over the past 24 to 48 hours and he has failed due to increased tachypnea. Sharon nwhile, he is sodium levels at 141 with a BUN of 131 and creatinine of 3.4. Serum bicarb is at 27. WBC count is at 18.9 with a hemoglobin 7.1 and a platelet count of 238. Urine output is in order of 70 cc an hour. He has adequate output from his ileostomy. The abdominal wound is dehisced and there is evidence of an old infection with some purulent secretion from the wound surface in its midportion. The patient is receiving J-tube feeding and is receiving Nepro at rate of 50 cc an hour in addition to 50 cc of fluid flush on an hourly basis to prevent any clogging. He was spiking temperature over the past 24 hours. Tmax was 1101.1 F and the patient was started on a combination of Zosyn and vancomycin pending further cultures. Wound cultures have been obtained. Blood cultures also been obtained. Hemodynamically stable on no pressors. Nephrology on the case regarding his renal failure. The patient will try to get hemodialysis today. 12/17/2023, the patient is being seen for a follow-up. This morning, the patient is awake and is following simple commands only. He is profoundly weak. He remains on Precedex which is currently running at 0.2 mcg/kg/h. The patient is on assist-control motorcycle mechanical ventilation with a tidal volume of 500, rate of 20, FiO2 of 30% and PEEP of 5. Blood gas showed a pH of 7.45 with a pCO2 of 24 and pO2 of 90. Chest x-ray shows extensive cavitation in the right upper lobe with a cavitating pneumonia/infiltrate. There is also lower lobe consolidation and effusions. The patient is having scant respiratory secretions. The culture was positive for Pseudomonas aeruginosa and the patient remains on IV Zosyn. Meanwhile, the patient is on normal saline at rate of 20 cc an hour. No pressors and the patient is hemodynamically stable. The patient is on Nepro 50 cc an hour. The patient is producing adequate amount of urine ou tput in the order of 60 cc an hour. Last hemodialysis session was done yesterday. This was successful without any hemodynamic alteration. The white cell count is 16.2 with a hemoglobin 7.1 and a platelet count of 277. The patient's electrolytes show a sodium level of 143, potassium of 3.7, chlorides 109 and a bicarb of 26 with a BUN of 109 and a creatinine of 2.6. Stool for C. difficile has been negative. This morning, the patient is afebrile. Family at the bedside. Abdominal wound is well-dressed and the RAYA drain is serosanguineous. On today's evaluation of 12/18/2023, the patient is being seen for a follow-up. Awake and communicating and following commands. Nevertheless, profoundly weak, unable to move all of his extremities at this point in time. He is able to communicate by facial expression and sometimes he tries to talk. He remains on low-dose Precedex which is running at 0.2 mcg/kg/h. He is currently on pressure control mode of mechanical ventilation with a pressure control of 20, rate of 20, FiO2 30% with a PEEP of 5. pH is 7.56 with a pCO2 of 27 and pO2 of 91. The patient is undergoing hemodialysis this morning. Urine output is adequate at 75 cc an hour and the patient is on Nepro at rate of 50 cc an hour. CAT scan of the abdomen and pelvis was done yesterday. CAT scan of the chest showed extensive cavitating pneumonia involving the right lung and there is a cavitating lesion in the posterior aspect of the right upper lobe with a fluid- filled cavity/abscess. There is also opacity throughout the right lung and the left lung and this is consistent with gram-negative/pseudomonal pneumonia. There is postsurgical changes anterior abdominal wall with subcutaneous gas. No organizing fluid or collection. Also, the patient has cholelithiasis. J-tube is in good location. The patient has a wound VAC covering the anterior abdominal wall. WBC count is at 12 with a hemoglobin 7.3 and a platelet count of 275. Sodium is 147, potassium 3.4, chloride 113 bicarb is 23 BUN is 116 with a creatinine of 2.6. Antibiotic coverage remains unchanged and the patient remains on IV Zosyn. He is on Adalat 40 mg subcu every 1 week. He is on Levemir insulin 24 units daily along with NovoLog sliding scale coverage. He remains on low-dose Solu-Medrol 20 mg IV every 24 hours. 12/19/2023, the patient essentially the same as yesterday, clinically unchanged remains on Precedex running at 0.15 mcg/kg/min. Able to communicate by facial expression. Unable to move any of his extremities along or against gravity. Reflexes are diminished in all 4 extremities. Remains on pressure control of 15 cm of water with rate of 16, FiO2 of 30% with a PEEP of 5. Blood gas shows a pH of 7.49 with a pCO2 of 32 and pO2 of 91. Hemodynamically stable. Still on Nep ro at rate of 60 cc an hour. Hemodialysis was done yesterday and the patient is producing more than 40 cc an hour of urine output. BUN is 18 with a creatinine of 1.9. Sodium is at 140. The white cell count of 14.8 with a hemoglobin of 7.2 and a platelet count of 247. The patient is afebrile. The patient remains on same antibiotic coverage. Chest x-ray remains unchanged as the patient has a cavitating pneumonia involving the right upper lobe and the right lung fluid- filled cavity/abscess. Respiratory secretions noted. Active. The patient has limited complaints. Remains on mechanical ventilator. No other significant events overnight. Wound VAC is still in place. 12/20/2023, the patient is being seen for a follow-up. More alert and awake compared to yesterday. He is able to move his fingers and toes on today's evaluation. Following commands. Nevertheless, his J tube has been clogged and was unable to utilize the tube that has been some leaks around the tube. No abdominal distention. No nausea or emesis. Hemodynamically stable. Will undergo hemodialysis today. He remains on pressure control mode of mechanical ventilation at rate of 16, pressure of 10, +5 PEEP with an FiO2 of 30%. Chest x-ray from today is essentially unchanged with a stable cavity in his right upper lobe. White cell count of 15.7, hemoglobin 7.2, platelet count is 203, blood gas showed a pH of 7.49 with a pCO2 of 33 and pO2 of 73. BUN is 88 with a creatinine 1.89 and sodium is at 141 with a potassium level of 4.1. He is producing adequate amount of urine output. Fluid balance has been -900 cc over the past 24 hours. Normotensive. Remains on a combination of Zosyn and daptomycin. Remains on Levemir insulin 24 units daily. This is currently on hold as the patient has not been able to obtain enteral feeding. Wound VAC still in place. 12/21/2023, the patient remains on the mechanical ventilator. Overnight, the patient experienced discomfort in his abdomen and he was restless. Based on that, the patient was placed on a higher dose of Precedex which is currently running at 0.6 mcg/kg/h. The patient was also asynchronous with the mechanical ventilator and based on that, the patient was switched to an AC mode and currently is at a rate of 16, tidal volume of 400, FiO2 of 30% with a PEEP of 5. The patient is adequately sedated for now. Chest x-ray remains unchanged. Tracheostomy tube in place and the patient is having increased amount of respiratory secretions. J tube needs to be replaced today and this will be done by his general surgery as the tube remains clogged. Urine output is low order of 30 cc an hour. Afebrile. Remains on Zosyn and daptomycin. White cell count is 16.9, hemoglobin 7.4 and a platelet count of 280. Blood gas from today showed a pH of 7.46 with a pCO2 of 36 and pO2 of 82. Sodium levels of 144, BUN is 19 with a creatinine of 2.2 and a serum bicarb is at 23. The abdominal wound remains unchanged. RAYA drain is serosanguineous. 12/22/2023, patient remains on Precedex at 0.4 mcg/kg/min. Arousable. Communicates. Profoundly weak. Remains on the mechanical ventilator with a right lung abscess. SIMV mode mode rate of 16, tidal volume of 400, FiO2 30% with a PEEP of 5, with a pressure support of 8. Blood gas showed a pH of 7.46 with a pCO2 of 32 and a pO2 of 82. Chest x-ray remains unchanged with a right upper lobe cavitating lesion/opacity and a suspected lung abscess. This is rated Pseudomonas and the patient remains on IV Zosyn. He remains on daptomycin. Urine output is in order of 50 cc an hour.. The J-tube was unplugged yesterday. Nevertheless, the tube itself is malfunctioning and there is drainage around the tube requiring dressing changes the dressings being soakedConstantly. The patient's white cell count is 12.3 with a hemoglobin 7.7. Sodium is at 149, BUN 91 with a creatinine of 2.3. Bicarb is at 20. Undergoing hemodialysis periodically. Last hemodialysis was on 12/21/2023. Currently NPO. Abdominal wound is clean and the patient has a wound VAC in place. RAYA drain output is serosanguineous. Objective - Vital Signs Vital signs: Vital Signs Temp 98.3 F 12/22/23 08:00 Pulse 84 12/22/23 08:00 Resp 24 12/22/23 08:00 BP 90/63 12/22/23 08:00 Pulse Ox 97 12/22/23 08:00 FiO2 30 12/22/23 04:00 Intake & Output 12/21/23 12/22/23 12/22/23 18:59 06:59 18:59 Intake Total 1431.913 225.442 10 Output Total 755 660 50 Balance 676.913 -434.558 -40 Weight 97.5 kg 95.7 kg Intake: IV 1230 120 10 0.9 KVO 80 120 10 DAPTOmycin 600 mg In 50 Sodium Chloride 0.9% 50 ml @ 100 mls/hr IVPB Q48H [facility] Rx#:[id number] Piperacillin-Tazobactam 3 100 .375 gm In Sodium Chloride 0.9% 100 ml @ 25 mls/hr IVPB Q12HR [facility] Rx #:[id number] Sodium Chloride 0.9% 1, 1000 000 ml @ 999 mls/hr IV . Q1H1M ONE Rx#:[id number] Intake, IV Titration 126.913 80.442 Amount Dexmedetomidine/0.9% NaCl 126.913 80.442 (Pmx) 400 mcg In Empty Bag 1 bag @ 0.2 MCG/KG/HR 4.925 mls/hr IV .[id number] [facility] Rx#:[id number] Tube Feeding 30 10 Other 45 15 Output: Drainage 170 110 Right Abdomen 170 110 Urine 585 550 50 Other: Voiding Method Indwelling Catheter Indwelling Catheter ABP, PAP, CO, CI - Last Documented Arterial Blood Pressure 139/59 - Exam No acute distress, arousable on Precedex and following simple commands, comfortable, still on the mechanical ventilator. The patient has a tracheostomy tube in place. HEENT examination is grossly unremarkable. Mucous membranes are moist. No oral lesions.. The patient also has a tracheostomy tube in place and the patient has a #8 Shiley tracheostomy tube. Cardiac exam revealed the PMI to be normally situated and sized. The rhythm was regular and no extrasystoles were noted during several minutes of auscultation. The first and second heart sounds were normal and physiologic splitting of the second heart sound was noted. There were no murmurs, rubs, clicks, or gallops. The patient is in sinus tachycardia. Lungs reveal mild scattered rhonchi. No wheezes or crackles. Breath sounds equal. Diminished breath sound lung base bilaterally. Abdomen distended without bowel sounds. J-tube is noted. Mid abdominal wound is covered with a wound VAC and a RAYA drain in place and output is serosanguineous. Extremities are intact. No cyanosis clubbing trace edema lower extremities bilaterally Skin is without rash or lesion. The wound at the Mediport site is dry and the area has been sutured and the site is clean for now. Neurologic examination is brief but nonfocal. - Labs CBC & Chem 7: 12/22/23 05:27 12/22/23 05:27 Labs: Abnormal Lab Results - Last 24 Hours (Table) 12/21/23 12/21/23 12/21/23 Range/Units 02:47 11:44 17:40 WBC (3.8-10.6) k/uL RBC (4.30-5.90) m/uL Hgb (13.0-17.5) gm/dL Hct (39.0-53.0) % RDW (11.5-15.5) % Neutrophils # (1.3-7.7) k/uL ABG pH (7.35-7.45) ABG pCO2 (35-45) mmHg ABG pO2 (83-108) mmHg Hemoglobin (13.0-17.5) gm/dL Sodium (137-145) mmol/L Chloride (98-107) mmol/L Carbon Dioxide (22-30) mmol/L BUN (9-20) mg/dL Creatinine (0.66-1.25) mg/dL Glucose (74-99) mg/dL POC Glucose (mg/dL) 156 H 149 H (70-110) mg/dL Calcium (8.4-10.2) mg/dL Cortisol 24.7 H (3.1-22.4) UG/DL 12/22/23 12/22/23 12/22/23 Range/Units 00:04 05:20 05:27 WBC 12.3 H (3.8-10.6) k/uL RBC 2.75 L (4.30-5.90) m/uL Hgb 7.7 L (13.0-17.5) gm/dL Hct 24.1 L (39.0-53.0) % RDW 18.9 H (11.5-15.5) % Neutrophils # 10.5 H (1.3-7.7) k/uL ABG pH 7.46 H (7.35-7.45) ABG pCO2 32 L (35-45) mmHg ABG pO2 82 L (83-108) mmHg Hemoglobin 6.8 L* (13.0-17.5) gm/dL Sodium (137-145) mmol/L Chloride (98-107) mmol/L Carbon Dioxide (22-30) mmol/L BUN (9-20) mg/dL Creatinine (0.66-1.25) mg/dL Glucose (74-99) mg/dL POC Glucose (mg/dL) 125 H (70-110) mg/dL Calcium (8.4-10.2) mg/dL Cortisol (3.1-22.4) UG/DL 12/22/23 Range/Units 05:27 WBC (3.8-10.6) k/uL RBC (4.30-5.90) m/uL Hgb (13.0-17.5) gm/dL Hct (39.0-53.0) % RDW (11.5-15.5) % Neutrophils # (1.3-7.7) k/uL ABG pH (7.35-7.45) ABG pCO2 (35-45) mmHg ABG pO2 (83-108) mmHg Hemoglobin (13.0-17.5) gm/dL Sodium 149 H (137-145) mmol/L Chloride 120 H (98-107) mmol/L Carbon Dioxide 20 L (22-30) mmol/L BUN 91 H (9-20) mg/dL Creatinine 2.31 H (0.66-1.25) mg/dL Glucose 122 H (74-99) mg/dL POC Glucose (mg/dL) (70-110) mg/dL Calcium 7.1 L (8.4-10.2) mg/dL Cortisol (3.1-22.4) UG/DL Microbiology - Last 24 Hours (Table) 12/19/23 16:44 Blood Culture - Preliminary Blood Assessment and Plan Plan: Acute hypoxemic respiratory failure with failure to wean from mechanical ventilation, S/P tracheostomy on December 10, 2023. The patient has bilateral pneumonia with a cavitary infiltrate in the right upper lobe, secondary to Pseudomonas and the patient is currently on IV Zosyn. Patient is afebrile hemodynamically stable this morning. CAT scan of the chest done on 12/17/2023 was reviewed and the patient has a cavitating cyst/abscess in the posterior aspect of the right upper lobe in addition to patchy opacities bilaterally right more than left consistent with pneumonia,/gram-negative pneumonia attributed to Pseudomonas and Klebsiella. Chest x-ray remains unchanged. The patient is currently on SIMV mode of mechanical ventilation. Hospital-acquired right lung pseudomonal/Klebsiella pneumonia. Patient is currently on IV Zosyn. 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 Small bowel perforation with abdominal contamination. The patient is status post expiratory laparotomy and small bowel resection and insertion of another jejunostomy tube. The patient jejunostomy is not functional and remains clogged and this was unclogged yesterday. Nevertheless, the tube itself is still malfunctioning. However, the abdominal wound is dehisced and is infected. RAYA drain output is serosanguineous. A wound VAC was applied to the anterior abdominal wall. Peritonitis secondary to above Septic shock secondary to above, the patient is currently off pressors Atrial fibrillation with rapid medical response, currently back into normal sinus rhythm . Acute kidney injury, currently hemodialysis dependent and the patient is a dialysis cath in his left femoral vein. Hemodialysis was done on 12/20/2023, urine output is order of 20 to 30 cc an hour History of acute aspiration during upper endoscopy most likely secondary to gastric outlet obstruction secondary to non-Hodgkin's lymphoma. weight loss most likely secondary non-Hodgkin's lymphoma involving the stomach. Anemia of chronic disease, multifactorial, hemoglobin is stable for now Encephalopathy, multifactorial, could be drug related/sepsis related, ess entially a component of metabolic encephalopathy, improving and the patient is currently on low-dose Precedex and the patient is communicating and following simple commands Profound weakness in all 4 extremities and the patient is unable to move at this point in time. Motor function 0 out of 5 in all 4 extremities. Positive cough. Positive gag. 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 Malfunctioning of the J-tube Hyponatremia Plan Continue ventilator support. Patient is currently on SIMV Keep the patient on SIMV of mechanical ventilation. No change in the ventilator was done today. Chest x-ray findings are stable Continue IV Zosyn Continue daptomycin The J-tube needs probably needs to be replaced and general surgery on the case. Patient remains n.p.o. for now. Hemodialysis was done on 12/20/2023 Start half-normal saline at rate of 50 Monitor fever pattern General Surgery is on the case regarding abdominal wound PT for passive range of motion Condition remains extremely critical with poor prognosis based on the above Will continue to follow this patient along with the rest of the consultants. Condition is critical over the poor outcome based on the above. Evaluation was done more than 30 minutes. Time with Patient: Greater than 30
[2023-12-22 13:27] LABS: Glucose,Whole Blood 142 mg/dL (70-110)
--- NOTE | 2023-12-22 14:37 | P.PN ---
Subjective Progress Note Date: 12/22/23 12/22/2023: Patient was seen for a follow-up. Patient's was also present today. She states that she is doing better, but right now he has received Dilaudid, therefore somnolent. 12/20/2023: Patient was seen for follow-up. Patient's daughter and patient's are both present. Patient apparently has started responding remarkably. Patient is moving his lower extremities proximally and distally quite well, improved within the last 24 hours. Also able to move his arms well. 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 12/19/2023: Patient was seen for a follow-up. Patient's and patient's daughter were present today. Patient is clinically unchanged. Continues to be very weak in the arms and legs. 12/18/2023: Patient was seen for a follow-up. Patient is much more alert and awake. He is off sedation. Please refer to examination below. 12/17/2023: Patient was seen for a follow-up. Patient's was also present, who believes that patient is doing better. Patient is nodding appropriately. He is still very weak in the arms and legs, not able to follow directions oth erwise. Patient nods "no" for headache. Patient has tracheostomy. 12/16/2023: Patient was seen for a follow-up. Patient is laying in the bed, severely encephalopathic. Patient now has tracheostomy. Patient currently on Precedex 0.2 mcg/kg/h. Also on vancomycin. Patient getting hemodialysis as of now. 12/08/2023: Patient was seen for a follow-up. Patient's was also present. Per nursing report, with sedation holiday, patient opens eyes, but does not follow commands, does not track. Does not even response to yes/no questions. Patient does move right arm sometimes. Patient starts desynchronized ventilation therefore has to be put back on Precedex. Patient currently on Precedex 0.6 g per program per hour. Objective - Vital Signs Vital signs: Vital Signs Temp 98.9 F 12/22/23 12:00 Pulse 90 12/22/23 13:00 Resp 29 H 12/22/23 13:00 BP 86/55 12/22/23 13:00 Pulse Ox 97 10/20/24 13:00 FiO2 30 12/22/23 12:00 Intake & Output 12/21/23 12/22/23 12/22/23 18:59 06:59 18:59 Intake Total 1431.913 225.442 357.515 Output Total 755 660 210 Balance 676.913 -434.558 147.515 Weight 97.5 kg 95.7 kg Intake: IV 1230 120 260 0.9 KVO 80 120 10 DAPTOmycin 600 mg In 50 Sodium Chloride 0.9% 50 ml @ 100 mls/hr IVPB Q48H [facility] Rx#:[id number] Piperacillin-Tazobactam 3 100 100 .375 gm In Sodium Chloride 0.9% 100 ml @ 25 mls/hr IVPB Q12HR [facility] Rx #:[id number] Sodium Chloride 0.45% 1, 150 000 ml @ 50 mls/hr IV . Q20H [facility] Rx#:[id number] Sodium Chloride 0.9% 1, 1000 000 ml @ 999 mls/hr IV . Q1H1M [facility] Rx#:[id number] Intake, IV Titration 126.913 80.442 97.515 Amount Dexmedetomidine/0.9% NaCl 126.913 80.442 97.515 (Pmx) 400 mcg In Empty Bag 1 bag @ 0.2 MCG/KG/HR 4.925 mls/hr IV .[id number] [facility] Rx#:[id number] Tube Feeding 30 10 Other 45 15 Output: Drainage 170 110 Right Abdomen 170 110 Urine 585 550 210 Other: Voiding Method Indwelling Catheter Indwelling Catheter ABP, PAP, CO, CI - Last Documented Arterial Blood Pressure 139/59 - Exam On examination patient is laying in the bed. Patient is intubated, with tracheostomy. Patient is off sedation. Patient was much more alert awake. Pupils are equal, round and reacting. Oculocephalics are inhibited. Corneals are present. Patient was able to his lower extremities proximally and distally quite well. Patient also moving his upper arms proximally but still weak distally in the arms. Reflexes are absent at brachioradialis, knees and ankles bilaterally, whereas trace to 1 at the right biceps, and trace at the left biceps. Plantars are flat. Patient has lot of muscle wasting apparent because of the flabby skin. - Labs CBC & Chem 7: 12/22/23 05:27 12/22/23 14:09 Labs: Abnormal Lab Results - Last 24 Hours (Table) 12/21/23 12/22/23 12/22/23 Range/Units 17:40 00:04 05:20 WBC (3.8-10.6) k/uL RBC (4.30-5.90) m/uL Hgb (13.0-17.5) gm/dL Hct (39.0-53.0) % RDW (11.5-15.5) % Neutrophils # (1.3-7.7) k/uL ABG pH 7.46 H (7.35-7.45) ABG pCO2 32 L (35-45) mmHg ABG pO2 82 L (83-108) mmHg Hemoglobin 6.8 L* (13.0-17.5) gm/dL Sodium (137-145) mmol/L Chloride (98-107) mmol/L Carbon Dioxide (22-30) mmol/L BUN (9-20) mg/dL Creatinine (0.66-1.25) mg/dL Glucose (74-99) mg/dL POC Glucose (mg/dL) 149 H 125 H (70-110) mg/dL Calcium (8.4-10.2) mg/dL 12/22/23 12/22/23 12/22/23 Range/Units 05:27 05:27 13:25 WBC 12.3 H (3.8-10.6) k/uL RBC 2.75 L (4.30-5.90) m/uL Hgb 7.7 L (13.0-17.5) gm/dL Hct 24.1 L (39.0-53.0) % RDW 18.9 H (11.5-15.5) % Neutrophils # 10.5 H (1.3-7.7) k/uL ABG pH (7.35-7.45) ABG pCO2 (35-45) mmHg ABG pO2 (83-108) mmHg Hemoglobin (13.0-17.5) gm/dL Sodium 149 H (137-145) mmol/L Chloride 120 H (98-107) mmol/L Carbon Dioxide 20 L (22-30) mmol/L BUN 91 H (9-20) mg/dL Creatinine 2.31 H (0.66-1.25) mg/dL Glucose 122 H (74-99) mg/dL POC Glucose (mg/dL) 142 H (70-110) mg/dL Calcium 7.1 L (8.4-10.2) mg/dL Microbiology - Last 24 Hours (Table) 12/19/23 16:44 Blood Culture - Preliminary Blood Assessment and Plan Assessment: * Altered mental status, likely due to toxic metabolic encephalopathy, remarkably improved * Generalized weakness, 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 Patient muscle strength improved in the last 24 hours. 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 Plan: * Patient continues to have severe weakness of the arms and legs. 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 Patient has started showing improvement in the muscle strength. He has started moving his lower extremities distally and proximally and some upper extremities as well. This is suggestive of critical illness myopathy, improving now. No indication for lumbar puncture. Also discussed with patient's family, and they agreed. * Stat EEG was performed on 12/08/2023: It revealed generalized slowing of severe degree. This is suggestive of generalized cerebral dysfunction as can be seen with toxic metabolic encephalopathy or related to diffuse structural brain about a day. Clinical correlation is recommended. Sporadic, periodic generalized sharp-appearing waves were seen. This may suggest underlying cortical irritability. No electrographic seizure was recorded. * Therefore, empirically started on Keppra 500 mg daily. May discontinue Keppra, once mentation comes back to normal. * Repeat EEG on 12/12/2023: Is abnormal. The study is limited because of diffuse myogenic artifact. The background slowing is suggestive of severe encephalopathy. Otherwise no focal slowing, epileptiform discharges or seizure on the EEG. * CT head performed 12/07/2023 revealed no acute intracranial process. Some atrophy. I personally reviewed CT head agree with the findings. * Patient is generalized weak. Patient has been ICU for extended period of time. At risk for critical illness myopathy. * Patient currently on daptomycin and Zosyn. ID following. * For medical management as per critical care and other specialties on board. * Dr. Vladimir Jimenez to resume neurology service in the morning. Discussed with patient's and patient's nurse.
--- NOTE | 2023-12-22 16:07 | P.PN ---
Progress Note - Text Progress Note Date: 12/22/23 Chief Complaint: Aspirated This is a 73-year-old patient, follows with Dr. Patricia Deal. Patient was seen this morning in the ICU. Patient's and daughter at the bedside. History obtained predominantly by the . Patient been having trouble with his stomach symptoms for close to 8 months. Patient underwent EGD by Dr. Sahara Cheng yesterday. Patient was found to have ulcerated around the antrum and obstruction to the pylorus. A lot of retained food was found. Patient aspirated. Had to be intubated and brought to the ICU. On a Levophed drip. FiO2 50 and a PEEP of 6. Patient had been losing weight lost about 25 pounds. Previously has a history of mitral valve prolapse. November 13: ICU. Patient remains on Precedex drip and propofol drip. Did not do well attempted extubation yesterday. Patient been off Levophed. NG tube to suction. Spoke to patient's and son at the bedside. Biopsy results awaited. Hemoglobin dropped to 6.9 this morning. Get a unit of blood. November 14: ICU. Up in a chair. Extubated yesterday. NG tube to suction. at the bedside. 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 Oncology was consulted. They have ordered a port. Results discussed with Dr. Sahara Cheng. General surgery was consulted for J-tube placement. Discussed with at the bedside. Patient getting IV fluids, IV Zosyn,. Patient has been on IV amiodarone for A-fib-back in sinus rhythm. Multiple PACs. Did receive unit of blood yesterday. Also IV ferric gluconate. November 15: ICU. Patient earlier today underwent jejunostomy tube placement and a port placement. Patient awake. Answering questions. NG tube to suction present. Updated patient's . Patient remains on IV amiodarone and IV Zosyn. November 16: ICU. Up in the chair. NG tube present but not to suction. Trickle feeding through the jejunostomy tube should be started today. Dietitian has been on board. IV Zosyn to continue. Patient's and his sister at the bedside. Discussed. Also spoke with Dr. Serna. Given patient has no other predisposing cardiac factors for the A-fib except acute illness. His LV function is normal. Left atrium is normal. He has already been loaded with IV amiodarone. Will switch him to oral Lopressor 12.5 twice daily. Hence will DC amiodarone. Patient yesterday had wheezing was put on bronchodilators steroids per pulmonary. November 17: Propped up in bed. NG tube was discontinued. Sinus rhythm. Remains NPO. Getting G-tube feeding at 40 cc an hour. Dietitian following. Get arrangements done for DC home tomorrow including tube feeding. Increase activity discussed with patient and elder daughter at the bedside. Still requiring oxygen. Incentive spirometry. November 18: Patient up in recliner. Earlier today spoke to geriatric social worker David. Informed patient is rather weak and will be going to the [facility]. Looking at authorization. Denae came to the room and spoke to patient his and his daughter. They are very keen to take the patient home as 3 daughters all nurses and they will take care of him at home. Patient earlier today to abdominal cramping and some loose stools.'s tube feeding was held. Told the nurse to start back at the rate of 40 cc an hour. He was before the getting it at 55 cc an hour. Incentive spirometry was again emphasized. Patient remains on 4 L of oxygen. November 19: I saw the patient this morning. Hence I am in the evening. Morning was sitting with his sons. Has some edema. Lungs had crackles I gave him 40 mg of Lasix. He did make good urine. Tube feeding was held from the previous evening of because of abdominal cramping. Acute abdominal series showed nonspecific bowel gas pattern and SBO to be ruled out. Family and patient was updated. Told him discharge will depend on day by day. Later this afternoon CT scanAnd abdomen pelvis done. Showed small bowel to be 3 point centimeter dilated. Some anasarca. Gastric findings. Gallstones. Later spoke to Dr. Irby from general surgery. They will further review and decide about further plan of action. Will give further dose of IV Lasix because of fluid overload from likely hypoalbuminemia and IV fluids previously received. Patient may take his pills by mouth. Total time spent today about 1 hour with over 40 minutes of discussion. Patient did state his breathing is better after Lasix this morning. November 20: Saw the patient this morning. was present. Patient received 2 more doses of Lasix. Diuresed well. Breathing much better. Lungs are sounding better. Discussed with Dr. Zepeda other surgeon. He is taking 3 cc out of the balloon and the gastrostomy tube. Started trickle feeding at 5 cc an hour. Will see how this does. Later in the day ran into the and the daughter again. Did update them on the same. Dilaudid was discontinued yesterday but morphine was ordered by surgery for patient having pain. Concerns about GI issues with that we will DC the morphine. As family does not want the same. November 21: Patient reclining bed. Tired. Several family members at the bedside. Including his and eldest daughter. Patient started on trickle feed yesterday at 5 cc an hour. This morning he has been on 10 cc an hour. Still having some loose stools. C. difficile was ordered. Patient on 2 L of nasal cannula. Has diuresed well. Will give an additional dose of Lasix today. If C. difficile is negative and the diarrhea is from the tube feedings we may have to use a fecal management system to keep him comfortable. Otherwise patient remains NPO. Dietitian is following the patient. Care was discussed length with patient the and daughter at the bedside. Questions answered. Liquid Tylenol has been added for abdominal pain. Avoid narcotics. Elevated white count likely from Solu-Medrol 11/23/2023--patient was feeling better today. Multiple family member at bedside. No issues overnight. Normal saline at 10 cc an hour, tube feeding at 20 cc an hour, remains on Zosyn, on 3 L oxygen. Afebrile. Heart rate 62, respiratory rate 16, blood pressure 114/67, saturating 91% on 3 L. WBCs 14.5, 9.7 hemoglobin. Platelet 242. BMP is unremarkable. Pulmonary and general surgery following. General surgery recommended to continue tube feeds at 20 cc/h. 11/24/2023--patient reported significant abdominal discomfort, also noted to have leak around G-tube. General surgery is following, evaluated the patient at bedside, adjusted tube feeds. Also reported having diarrhea, on 2 L oxygen, went up to 5 L. Blood pressure was low, 500 mL fluid bolus with close monitoring of respiratory status ordered. Currently on DuoNebs, Solu-Medrol, will continue Zosyn. Chest x-ray showed a left lower lobe infiltrate. Abdominal x-ray showed multiple air-fluid levels. CT abdomen showed multiple dilated small bowel loops, consistent with obstruction, pneumoperitoneum, cholelithiasis and ascites. WBCs 14.1, platelet 255, hemoglobin 8.9. NG tube in place. Family at bedside. patient transferred to SICU for close monitoring. 11/25/23--patient is currently in the ICU, required Levophed overnight due to low blood pressure, low urine output with creatinine trending up. Nephrology following. Private Branch Exchange Operator also following. Patient remains n.p.o., NG tube in place, following NG tube insertion patient had total of 2 L output, J-tube was draining approximately 200 cc over last 8 hours, continues to have abdominal pain and abdominal tenderness. Patient on IV fluids. Currently on 4 L oxygen. WBCs 8.2, hemoglobin 12.3, platelet 188. Chest x-ray earlier today showed right sided port and a stable left lung airspace disease, NG tube in place. Patient currently on Zosyn, on IV Dilaudid for pain control, on IV Solu-Medrol. General surgery planning for OR today, started on TPN. 11/26/23--patient was seen and examined today. Patient is currently sedated, intubated on mechanical ventilation. Family at bedside. Patient underwent ex lap, abdominal washout, small bowel resection with new feeding jejunostomy tube placement yesterday, small bowel was noted to be perforated with significant contamination of abdominal cavity. Patient is currently on vancomycin and Zosyn. Creatinine went up to 2.85, nephrology following, recommended to continue IV fluids, avoid nephrotoxin Preserved EF on echocardiogram.. Patient currently on Levophed, vasopressin in the ICU for close monitoring. Patient is afebrile, heart rate 122, blood pressure 129/76, currently on mechanical ventilation, sedated. November 26: ICU. Intubated. FiO2 60 and a PEEP of 5. Drips include IV amiodarone. Heart rate was up early did get fired microgram of IV digoxin and 2.5 mg of IV Lopressor. Did drop her blood pressure bit. Urine output was low. Received 80 mg of IV Lasix. Ahmet to 150 cc. Other drips include IV propofol, vasopressin, Levophed. TPN was started yesterday. Antibiotics include IV Zosyn and vancomycin. Patient has a J-tube to drainage to gravity. Spoke to patient's younger daughter and at the bedside. Prognosis guarded. Continue current treatment plan. Chest x-ray shows right lower lobe consolidation. Small pleural effusion. November 27: ICU. Intubated. FiO2 55 and a PEEP of 5. Antibiotics include IV vancomycin. Drips include Levophed at a small dose, IV vasopressin, propofol, amiodarone. Patient converted to sinus rhythm this morning. Getting TPN and normal saline at 75 cc an hour. Urine output about 25 cc an hour. RAYA drain put out about 260 cc last 12 hours that is last police shift commander. NG tube with bilious output. And also GI J-tube output to gravity. Spoke to patient's and daughter at the bedside. They understand patient still not out of the kee. Platelets have dropped-therefore probably Zosyn stopped. November 28: ICU. Intubated. FiO2 55 and a PEEP of 5. Patient is in sinus rhythm. Seen this morning. Due for dialysis catheter this afternoon. Urine output about 15 to 20 cc an hour. Patient is on IV Lasix 80 mg every 12. Saline is KVO. Drips include IV propofol vasopressin. Patient having significant output through the RAYA drain and the jejunostomy tube to drainage. Creatinine had been getting worse. Patient's at the bedside. Understands patient's remains critically ill. Hemoglobin is down to 7. Given that patient's pain hypotensive, and on vasopressin we will give a unit of blood with dialysis. Getting TPN antibiotic changed to IV meropenem November 29: ICU. Intubated. FiO2 55 and a PEEP of 5. Remains in sinus rhythm. Getting TPN. Dialyzed yesterday and this morning. About 1000 cc removed. Urine output about 50 cc an hour. Patient is on IV propofol. Off vasopressin. Still having significant output through the RAYA drain and jejunostomy tube. Patient received a second unit of blood yesterday. Patient's and daughter at the bedside. I did discuss guarded prognosis. Did asked them to revisit CODE STATUS.. Getting IV meropenem. November 30: ICU. Intubated. Did get a sedation holiday t today. Back on propofol. Getting TPN. Still getting IV Lasix. Fair urine output. Jejunostomy tube in last 8 hours was about 30 cc output. RAYA drain in the 8 hours had about 180 cc output. Telemetry shows sinus rhythm. NG tube has low intermittent suction with negative output. On the vent with FiO2 40 and a PEEP of 5. No hemodialysis today. Discussed with the and eldest daughter at the bedside. IV meropenem-patient's sputum had grown Citrobacter freundii and Pseudomonas aeruginosa. December 01: ICU. Intubated. Jejunostomy tube to gravity. Only 10 cc output in last 24 hours. RAYA drain. About 190 cc last 6 hours. Nasogastric tube to low intermittent suction. Minimal output. Patient is on a small dose of propofol 5 mics. Telemetry shows sinus rhythm. Patient started on small dose of Cleviprex this morning. Blood pressure. Getting TPN. FiO2 35 and PEEP of 5. Discussed with the at the bedside. Hemodialysis today December 02: ICU. Patient remains intubated. FiO2 35 PEEP of 5. Patient is on IV propofol. IV Cleviprex was discontinued yesterday. Also remains on TPN. Telemetry shows sinus rhythm. NG tube is good no output. Still significant output through the RAYA drain. Jejunostomy tube has minimal output. Patient had hemodialysis today 2 L of fluid was removed. Oral half liters yesterday. Patient getting a sedation holiday. General Surgery started the patient on trickle feeding at 10 cc an hour. I did speak to patient's at the bedside. Prognosis remains guarded but there is some improvement. December 03: ICU. Intubated. FiO2 35 PEEP of 5. Drips include IV propofol and Precedex. Getting TPN. Telemetry shows sinus rhythm. Remains on IV Lasix 80 mg twice a day. IV meropenem. Because patient gets easily agitated when transitioning off propofol he has been switched over to Precedex. For hemodialysis today. December 04: ICU. Intubated. FiO2 35 and a PEEP of 5. Patient been taken off propofol is on Precedex. Telemetry sinus rhythm. J-tube with minimal output. RAYA drain with decreased output. NG tube to suction minimal output. Family wanted to hold off trickle feeding until cleared by oncology. Which he did today. Trickle feeding will be started today. Spoke to patient's and one of the daughters at the bedside. Dr. Russ is spoken to the earlier this point they want to do further tracheostomy tube. December 05: ICU. Intubated. FiO2 35 PEEP of 5. Patient remains on Precedex and PPN. Patient's dialysis catheter was not functioning is getting another [address] Bobby this afternoon. Remains on IV meropenem. Has a RAYA drain in the jejunostomy tube to gravity. NG tube to low intermittent suction. No family at the bedside. December 06: ICU. Intubated. FiO2 35 PEEP of 5. RAYA drain putting out about approximately 120 cc per shift. Patient on IV Precedex. FiO2 35 PEEP of 5. Telemetry-sinus rhythm. Patient occasionally been put on small dose of Levophed specially for hemodialysis getting it today. Also started on midodrine for low blood pressure. Tolerating tube feeding at 10 cc an hour. Also had a bowel movement. Mentation has not improved. Even with sedation holiday. Neurology consulted. CT brain shows no acute process. December 07: ICU. Intubated. FiO2 35 PEEP of 5. Telemetry-sinus rhythm. NG tube to suction low intermittent minimal output. Getting TPN. Tube feeding at 20 cc an hour. RAYA drain averaging over 100 cc per shift. Remains on Precedex. EEG was done today. Discussed with at the bedside. Family is currently not inclined for tracheostomy tube today. Day 13 of being intubated December 08: ICU. Intubated. FiO2 35 PEEP of 5. Patient is put on back on propofol per career technical education teacher Dr. BINGHAM. EEG did show some potential for spikes was put on Keppra by neurology. Telemetry shows sinus rhythm. NG tube to suction with no output. Tube feeding was put on hold because of questionable discharge on the site. Being restarted today. RAYA drain is 150 cc last 12-hour shift. Patient does open eyes. Family has decided to proceed with tracheostomy and surgery has been consulted for the same. Spoke to the at the bedside. For hemodialysis today. December 09: ICU. Intubated FiO2 35 PEEP of 5. Patient seen this morning. Pending tracheostomy placement this afternoon. Remains NPO. G-tube feeding was held overnight. RAYA drain putting out about 100 cc per shift. Received a unit of blood for hemoglobin of 6.6. On 25 mics of propofol. Getting TPN and meropenem. Spoke to the at the bedside. Patient became hypotensive with dialysis yesterday. Levophed had to be given. Only 800 cc were removed yesterday. No hemodialysis today. December 10: ICU . FiO2 35, PEEP 5. Tracheostomy was done yesterday by Dr. Ewing. G-tube feeding was started today at 10 cc an hour. Dietitian following. RAYA drain 12-hour shift overnight put out about 30 cc. Patient hemodialysis to day about 1 L removed. Patient has a sacral stage II decub with a dressing. On propofol 20 mics. Spoke to at the bedside. TPN. Meropenem was discontinued yesterday. December 11: ICU. FiO2 35 PEEP of 5. Tracheostomy. NG tube was discontinued. No hemodialysis today. Telemetry shows sinus rhythm. J-tube feeding at 40 cc an hour. TPN was discontinued. Patient has been off propofol also. PICC line in place. Patient had a EEG done today. Spoke to patient's elder daughter at the bedside. May open eyes occasionally. Not really following commands December 12: 73-year-old white male with history of chronic abdominal pain for the last 8 months has been treated with Protonix 40 mg daily for the last 3 months with no improvement. Patient had a 22 pound weight loss in the last [address] of the abdomen and pelvis 3 weeks ago showed thickening of the antral wall with pathological adenopathy posterior to the stomach suspicious of neoplasm. Today the patient underwent elective upper endoscopy to evaluate further, patient received IV sedation by anesthesia endoscope was inserted into the mouth, esophagus was intubated without any difficulty there was evidence of large amount of liquid and solid food noted in the stomach suggestive of gastric outlet obstruction. Scope could not be advanced through the pylorus, however in the prepyloric area there was a large superficial ulceration identified with multiple biopsies were done from this area. The body cardia and fundus could not adequately visualize because of large amount of retained food in the stomach. Scope was withdrawn back to the stomach and upon careful examination the mucosa of the antrum body and cardia as well as the fundus appeared normal. Procedure was being performed and biopsies were done patient threw up and subsequently became hypoxic there was clearly evidence of witnessed aspiration anesthesia intubated the patient, procedure was terminated, and the patient was transferred to the ICU, this consult was initiated. Patient is now on assist- control rate of 20 tidal volume 500 FiO2 70% PEEP of 10 ABG is pending, earlier ABG showed profound hypoxia patient is on propofol at 50 mcg/kg/min, next ABG is pending. Chest x-ray showed chronic changes without evidence of acute pulmonary disease. 12/14/2023 Patient remains in the ICU, generally weak Patient s/p tracheostomy G-tube in place Patient still has fever and mild tachycardia but tachycardia is improving, leukocytosis improving as well. Hemoglobin 8.1. Creatinine 3.0 and nephrology team on the case. He has mild transaminitis. He was getting Zosyn which is held now, nowCalcitonin is pending 12/14 Patient shon in the ICU, he is still encephalopathic and does not follow command. Neurology service following closely. He is status post tracheostomy. Also J-tube His abdomen looks soft and on exam he has mild coarse secretions. Has a Abarca catheter with clear urine His pro- Calcitonin is still high but trending down 3.0 down to 1.9 No fever this morning WBC slightly less at 16.3 Patient currently off antibiotic He is getting steroids IV Solu-Medrol which might contribute to his leukocytosis. Also he is on IV Keppra by neurologist 12/14 Patient remains confused in the ICU calm, he had a good night per family member and staff. Tracheostomy in place Patient has occasional coughing spells, patient also developed some partial wound dehiscence in his abdomen, surgery team are aware and are going to evaluate the patient Patient also has positive blood culture from 12/13: Gram-positive cocci in clusters. Patient received one-time dose of IV vancomycin. Patient also had fever 2 days ago, leukocytosis and total elevated pro- Calcitonin. Therefore we are going to consult infectious disease team. As his antibiotic Zosyn was stopped few days ago. Currently patient KVO He has good urine output December 16: ICU. Trach. Congested. Requiring suctioning. No hemodialysis today. Getting G-tube feeding at 50 cc an hour. FiO2 30 and a PEEP of 5. On IV Precedex. Eyes open. Does follow commands. Weakness in the limbs. Spoke to at the bedside. Sputum positive for Klebsiella oxytoca and Pseudomonas aeruginosa. December 17: ICU. On trach. Currently cough with increased secretions requiring suctioning. Adding scopolamine patch. Very much clear secretion. CT scan is showing right upper lobe lung abscess. G-tube feeding at 50 cc an hour. Hemodialysis today. RYAA drain putting out about 140 cc a shift. Serous. Has been midline incision wound dehiscence. Wound VAC was placed on it. Stage II ulcer. Patient is on Precedex drip 0.15 mics. Urine output is good about 6200 cc an hour. Spoke to the at the bedside. Patient currently not stable for transfer to LTAC. No limb movements. PT OT on the case. otherwise awake does follow simple commands by face December 18: ICU. Patient seen this afternoon. Because of pain getting IV Dilaudid. No nasal cannula on room air. Does move about his head. Telemetry shows sinus rhythm. FiO2 30 and a PEEP of 5. Patient started on scopolamine patch yesterday has decreased secretions today. Good urine output. Tube fee ding at 60 cc an hour. Wound VAC on incisional would be high since in place. RAAY drain continues to make output. No hemodialysis today December 19: ICU. Patient was seen earlier today. FiO2 30 and a PEEP of 5. Sinus rhythm. Awake. Does follow with eyes. Tube feeding got obstructed tube feedings held for now. Increasing oozing from the incision drainage site. at the bedside. Wound VAC remains in place. Good urine output. Dialysis held today. December 20: ICU. Per nephrology no dialysis today. 1 L fluid bolus given. J- tube was replaced over the wire by Dr. Ewing from surgery. On Precedex 0.6 mcg. FiO2 30 and a PEEP of 5 on the vent. RAYA drain putting out of around 100 cc per shift. at the bedside. Drainage through the abdominal incision wound. CT scan abdomen showed tube placement in the small bowel. Stable large right lower quadrant mass with a fluid level. December 29: ICU. No dialysis today. Patient started on trickle feeding through the J-tube yesterday. He started leaking around the J-tube site. Tube feeding was held. Dressings were placed. Wound VAC remains on the incision. Still having output through the RAYA drain. Patient remains on Precedex 0.4 mcg. FiO2 30 and a PEEP of 5. Sinus rhythm. at the bedside. Active Medications Acetaminophen (Acetaminophen Tab 325 Mg Tab) 650 mg PO Q4HR PRN PRN Reason: Fever and/ or Pain Last Admin: 12/09/23 20:09 Dose: 650 mg Acetaminophen (Acetaminophen Oral Susp (Peds) 3,840 Mg/120 Ml Bottle) 480 mg PO Q4HR PRN PRN Reason: Fever Albuterol/Ipratropium (Ipratropium-Albuterol 3 Ml Neb) 3 ml INHALATION RT-QID NIRMAL Last Admin: 12/22/23 15:58 Dose: 3 ml Albuterol/Ipratropium (Ipratropium-Albuterol 3 Ml Neb) 3 ml INHALATION RT-Q2H PRN PRN Reason: Shortness Of Breath Or Wheezing Last Admin: 12/03/23 03:45 Dose: 3 ml Chlorhexidine Gluconate (Chlorhexidine Gluconate 15 Ml Cup) 15 ml MUCOUS MEM BID NIRMAL Last Admin: 12/22/23 08:26 Dose: 15 ml Darbepoetin Scooby (Darbepoetin Scooby 40 Mcg/0.4 Ml Syringe) 40 mcg SQ Q7D [facility] Last Admin: 12/17/23 07:51 Dose: 40 mcg Dextrose/Water (Dextrose 50% Syringe 50 Ml) 25 ml IVP PER PROTOCOL PRN; Protocol PRN Reason: Hypoglycemia Dextrose/Water (Dextrose 50% Syringe 50 Ml) 50 ml IVP PER PROTOCOL PRN; Protocol PRN Reason: Hypoglycemia Hydromorphone HCl (Hydromorphone 0.5 Mg/0.5 Ml Syringe) 0.25 mg IVP Q3H PRN PRN Reason: Pain Last Admin: 12/22/23 13:21 Dose: 0.25 mg Sodium Chloride (Saline 0.9%) 1,000 mls @ 20 mls/hr IV .Q24H [facility] Last Admin: 12/21/23 15:29 Dose: 20 mls/hr Dexmedetomidine HCl 400 mcg/ (IV Solution) 100 mls @ 4.925 mls/hr IV .[id number] NIRMAL; Protocol Last Admin: 12/22/23 12:12 Dose: 0.4 mcg/kg/hr, 9.85 mls/hr Piperacillin Sod/Tazobactam (Sod 3.375 gm/ Sodium Chloride) 100 mls @ 25 mls/hr IVPB Q12HR [facility]; Protocol Last Admin: 12/22/23 08:26 Dose: 25 mls/hr Daptomycin 600 mg/ Sodium (Chloride) 50 mls @ 100 mls/hr IVPB Q48H [facility]; Protocol Last Admin: 12/21/23 08:08 Dose: 100 mls/hr Norepinephrine Bitartrate 4 mg (/ Sodium Chloride) 254 mls @ 11.259 mls/hr IV .[id number] [facility]; Protocol Last Admin: 12/22/23 08:12 Dose: Not Given Sodium Chloride (Saline 0.45%) 1,000 mls @ 50 mls/hr IV .Q20H [facility] Last Admin: 12/22/23 10:09 Dose: 50 mls/hr Insulin Aspart (Insulin Aspart (Novolog) 100 Unit/Ml Vial) 0 unit SQ 0000,0600,1200,1800 [facility]; Protocol Last Admin: 12/22/23 07:00 Dose: Not Given Insulin Detemir (Insulin Detemir (Levemir) 100 Unit/Ml Syr) 24 unit SQ DAILY@0700 [facility] Last Admin: 12/22/23 07:00 Dose: Not Given Levetiracetam (Levetiracetam Iv 500 Mg/5 Ml Vial) 500 mg IVP Q24HR [facility] Last Admin: 12/22/23 08:26 Dose: 500 mg Lorazepam (Lorazepam 2 Mg/Ml Inj) 1 mg IV Q4HR PRN PRN Reason: Anxiety Last Admin: 12/21/23 03:23 Dose: 0.5 mg Metoprolol Tartrate (Metoprolol Tartrate 5 Mg/5 Ml Vial) 2.5 mg IVP Q6HR PRN PRN Reason: Heart Rate - HIGH Last Admin: 11/27/23 08:25 Dose: 2.5 mg Miscellaneous Information (Magnesium Replacement Protocol 1 Each Misc) 1 each MISCELLANE DAILY PRN; Protocol PRN Reason: Per Protocol Multi-Ingredient Ointment (Zinc Oxide 20% Oint 28.4 Gm Tube) 1 applic TOPICAL BID PRN; Protocol PRN Reason: Skin Irritation Naloxone HCl (Naloxone 0.4 Mg/Ml 1 Ml Vial) 0.2 mg IV Q2M PRN PRN Reason: Opioid Reversal Pantoprazole Sodium (Pantoprazole 40 Mg/10 Ml Vial) 40 mg IVP BID [facility] Last Admin: 12/22/23 08:26 Dose: 40 mg Petrolatum (Zinc Oxide Paste (Z-Guard) 1 Applic) 1 applic TOPICAL BID [facility]; Protocol Last Admin: 12/22/23 08:27 Dose: 1 applic Past medical history to include: GERD Social history: . No smoking. Physical examination: VITAL SIGNS: 98 9, 93, 31, 93 x 57, 96% on the vent GENERAL: Eyes open moving head. Left groin dialysis access. EYES: Pupils equal. Conjunctiva edouard l. HEENT: External appearance of nose and ears normal, tracheostomy-with secretions NECK: JVD unable to assess; masses not palpable. HEART: First and second heart sounds are normal; edema, present LUNGS: Respiratory rate increased, decreased breath sounds ABDOMEN: Soft, some tenderness. Liver spleen not palpable, no masses palpable..jejunostomy tube-feeding held. RAYA drain. Incision with stitches with - wound VAC PSYCH: Unable to assess NEURO: Very little movement in limbs. Eyes open. Moves head to command INVESTIGATIONS, reviewed in the clinical context: December 21: White count 12.3 hemoglobin 7.7 platelets 219 sodium 149 potassium 4.3 BUN [address] chest abdomen without contrast [December 16] right upper lung cavitary lesion with air-fluid level in the posterior aspect and a larger cavitary lesion possibly within the lung parenchyma itself. Extending down towards the diaphragm additional airspace opacities in the left lung base. December 10: White count 21.3 hemoglobin 7.4 platelets 129 potassium 4.2 BUN 111 creatinine 3.77 December 09: White count 26.1 hemoglobin 8.6 platelets 154 potassium 4.1 BUN 86 creatinine 3.31. Hemoglobin this morning was 6.6 prior to transfusion EEG-evidence of generalized cerebral dysfunction and sporadic intermittent higher amplitude sharply contoured waves mainly bifrontal. Showing cortical irritability. 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 Serosal fibrous adhesions. Viable margins. Sputum culture: [November 25]: Citrobacter freundii. Pseudomonas aeruginosa November 20: White count 14.4 hemoglobin 8.8 platelets 229 potassium 4.1 BUN [address] scan abdomen [November 19] possible small bowel obstruction Stool: C. difficile negative November 15: WBC 13 hemoglobin 7.7 platelets 248 potassium 4.3 creatinine 0.87 2D echo: EF 55 to 60%. Kidneys bladder: Unremarkable November 13: White count 12 hemoglobin 6.9 platelets 276 potassium 4.4 creatinine 1.21 magnesium 1.8 iron 6 TIBC 365% saturation 1.64 transferrin 261 ferritin 34.6 B12 569 folate 4.4 November 11: Creatinine 0.86 EGD: Large amount of retained solid liquid food noted in the stomach. Large superficial gastric antral ulceration involving most of the antrum extending into the pylorus causing pyloric stenosis. Biopsies were obtained. Chest x-ray film personally reviewed by me-scattered infiltrates Assessment plan: -Aspiration pneumonitis bilateral from retained gastric contents mostly food and liquids, causing acute hypoxic respiratory failure: On presentation: Subsequent sputum culture November 25: Citrobacter freundii, Pseudomonas aeruginosa. December 13: Klebsiella oxytoca, Pseudomonas aeruginosa IV meropenem-was received originally. Now receiving IV daptomycin Pulmonary following -Probable lung abscess larger 1 on the right side-patient cultures are growing Pseudomonas and Klebsiella oxytoca IV Zosyn -Acute pulmonary edema and fluid overload from hypoalbuminemic state and fluids from IV.:: Has been getting Lasix and dialysis -Altered mentation. Possibly encephalopathy. Could be delirium.: Some improvement CT brain [December 06] nothing acute Neurology following EEG-evidence of generalized cerebral dysfunction and sporadic intermittent higher amplitude sharply contoured waves mainly bifrontal. Showing cortical irritability. Keppra was started on December 07 -Critical care poly- Pedro neuropathy PT OT -Gallstones, asymptomatic -Small l bowel perforation at site of jejunostomy tube tip with balloon..: Portion of small bowel resected. On November 24. New J-tube was placed.- drainage to gravity:-Now discontinued December 19: J-tube blocked. J-tube replaced on December 20 over wire December 21: Leaking around the G-tube site. Feeding held -Acute kidney injury. Possible ATN from hypotensive shock: Slow to respond Renal ultrasound unremarkable. Started on renal replacement therapy on November 28. Followed by nephrology -Nutrition Jejunostomy tube placed November [address] Ewing Received TPN -Midline abdominal incision wound dehiscence Wound VAC placed -Acute recurrent atrial fibrillation-converted to sinus rhythm Received IV amiodarone. Cardiology following Lopressor -Acute hypoxic respiratory failure from aspiration pneumonia, status post ventilator assisted: Reintubated November 25. FiO2 35 PEEP of 5 Tracheostomy tube-by Dr. Zepeda on December 09 -Septic shock, recovered -Hypertension Patient started on Cleviprex-discontinued -Intermittent hypotension Intermittent use of Levophed. 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 Also anemia of blood draw. Iron deficiency anemia Received 3rd unit of blood . IV iron. -Severe thrombocytopenia. Would consider coagulation disorder secondary to infection., In the setting of underlying lymphoma.: Recovered Hematology following. -Acute blood loss anemia, Has received 3 units of blood -Sacral stage II decub ulcer Dressing in place -GERD PPI -Acute diarrhea secondary to tube feeding.: Resolved C. difficile ruled out. -Large superficial gastric antral ulceration involving the gastric antrum extending into the pylorus with gastric outlet obstruction. 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 Port placed. For outpatient PET scan. -Full code No dialysis today. Received IV fluids. G-tube feeding held because of leaking around the G-tube site. Discussed with at the bedside. Past Medical History Past Medical History: GERD/Reflux History of Any Multi-Drug Resistant Organisms: None Reported Past Surgical History: Heart Catheterization Additional Past Surgical History / Comment(s): colonsocopy,spinal injection, Past Anesthesia/Blood Transfusion Reactions: No Reported Reaction Past Psychological History: No Psychological Hx Reported Smoking Status: Never smoker Past Alcohol Use History: None Reported Past Drug Use History: None Reported
[2023-12-22] MEDS: DEXTROSE 5% IN WATER 1,000 ML IV SCH (18:46)
[2023-12-22 18:52] LABS: Glucose,Whole Blood 139 mg/dL (70-110)
--- NOTE | 2023-12-22 21:04 | P.PN ---
Subjective Progress Note Date: 12/22/23 Principal diagnosis: Reason for follow-up is pneumonia and bacteremia Patient is 73-year-old with male initial presentation to the hospital on 11/11/2021 for after the patient did have aspiration while undergoing elective endoscopy, diagnosed with a non-Hodgkin of, subsequently did have explained laparotomy for perforated small bowel abdominal washout and feeding jejunostomy tube patient did require dialysis catheter placement for dialysis during this hospital stay and tracheostomy for respiratory failure, infectious was consulted for fever. On today's evaluation that is 12/22/2023, the patient continues to be afebrile, the patient is on trach collar and FiO2 is currently stable at 30% no significant purulent secretion through the ET or diarrhea has been reported still having issues with the jejunostomy tube and not getting his tube feeds as reported by the at the bedside. Patient white count is trending down down to 12.3 creatinine is 2.31 Objective - Vital Signs Vital signs: Vital Signs Temp 98.9 F 12/22/23 12:00 Pulse 90 12/22/23 13:00 Resp 29 H 12/22/23 13:00 BP 86/55 12/22/23 13:00 Pulse Ox 97 12/22/23 13:00 FiO2 30 12/22/23 12:00 Intake & Output 12/21/23 12/22/23 12/22/23 18:59 06:59 18:59 Intake Total 1431.913 225.442 357.515 Output Total 755 660 210 Balance 676.913 -434.558 147.515 Weight 97.5 kg 95.7 kg Intake: IV 1230 120 260 0.9 KVO 80 120 10 DAPTOmycin 600 mg In 50 Sodium Chloride 0.9% 50 ml @ 100 mls/hr IVPB Q48H [facility] Rx#:[id number] Piperacillin-Tazobactam 3 100 100 .375 gm In Sodium Chloride 0.9% 100 ml @ 25 mls/hr IVPB Q12HR [facility] Rx #:[id number] Sodium Chloride 0.45% 1, 150 000 ml @ 50 mls/hr IV . Q20H [facility] Rx#:[id number] Sodium Chloride 0.9% 1, 1000 000 ml @ 999 mls/hr IV . Q1H1M [facility] Rx#:[id number] Intake, IV Titration 126.913 80.442 97.515 Amount Dexmedetomidine/0.9% NaCl 126.913 80.442 97.515 (Pmx) 400 mcg In Empty Bag 1 bag @ 0.2 MCG/KG/HR 4.925 mls/hr IV .[id number] [facility] Rx#:[id number] Tube Feeding 30 10 Other 45 15 Output: Drainage 170 110 Right Abdomen 170 110 Urine 585 550 210 Other: Voiding Method Indwelling Catheter Indwelling Catheter ABP, PAP, CO, CI - Last Documented Arterial Blood Pressure 139/59 - Exam GENERAL DESCRIPTION: An elderly male lying in bed in no distress RESPIRATORY SYSTEM: Unlabored breathing , decreased breath sounds at bases HEART: S1 S2 regular rate and rhythm , ABDOMEN: Soft , no tenderness EXTREMITIES: No edema feet - Labs CBC & Chem 7: 12/22/23 05:27 12/22/23 14:09 Labs: Abnormal Lab Results - Last 24 Hours (Table) 12/21/23 12/22/23 12/22/23 Range/Units 17:40 00:04 05:20 WBC (3.8-10.6) k/uL RBC (4.30-5.90) m/uL Hgb (13.0-17.5) gm/dL Hct (39.0-53.0) % RDW (11.5-15.5) % Neutrophils # (1.3-7.7) k/uL ABG pH 7.46 H (7.35-7.45) ABG pCO2 32 L (35-45) mmHg ABG pO2 82 L (83-108) mmHg Hemoglobin 6.8 L* (13.0-17.5) gm/dL Sodium (137-145) mmol/L Chloride (98-107) mmol/L Carbon Dioxide (22-30) mmol/L BUN (9-20) mg/dL Creatinine (0.66-1.25) mg/dL Glucose (74-99) mg/dL POC Glucose (mg/dL) 149 H 125 H (70-110) mg/dL Calcium (8.4-10.2) mg/dL 12/22/23 12/22/23 12/22/23 Range/Units 05:27 05:27 13:25 WBC 12.3 H (3.8-10.6) k/uL RBC 2.75 L (4.30-5.90) m/uL Hgb 7.7 L (13.0-17.5) gm/dL Hct 24.1 L (39.0-53.0) % RDW 18.9 H (11.5-15.5) % Neutrophils # 10.5 H (1.3-7.7) k/uL ABG pH (7.35-7.45) ABG pCO2 (35-45) mmHg ABG pO2 (83-108) mmHg Hemoglobin (13.0-17.5) gm/dL Sodium 149 H (137-145) mmol/L Chloride 120 H (98-107) mmol/L Carbon Dioxide 20 L (22-30) mmol/L BUN 91 H (9-20) mg/dL Creatinine 2.31 H (0.66-1.25) mg/dL Glucose 122 H (74-99) mg/dL POC Glucose (mg/dL) 142 H (70-110) mg/dL Calcium 7.1 L (8.4-10.2) mg/dL Microbiology - Last 24 Hours (Table) 12/19/23 16:44 Blood Culture - Preliminary Blood Assessment and Plan (1) Sepsis Current Visit: Yes Status: Acute Code(s): A41.9 - SEPSIS, UNSPECIFIED ORGANISM SNOMED Code(s): 58275932 (2) Pneumonia Current Visit: Yes Status: Acute Code(s): J18.9 - PNEUMONIA, UNSPECIFIED ORGANISM SNOMED Code(s): 652013152 (3) Bacteremia Current Visit: Yes Status: Acute Code(s): R78.81 - BACTEREMIA SNOMED Code(s): 8167276 Plan: 1patient with sepsis in this patient has been in the hospital for 34 days b efore this initial consultation with initial admission to the hospital after elective EGD with the patient was noted to have gastric outlet obstruction and did aspirated subsequently the patient did have laparotomy for perforated small bowel status post resection and jejunostomy tube placement noted to have evidence of a midline abdominal wound dehiscence did have a apical cavitary lesion on the right side with his sputum showing Pseudomonas and Klebsiella, the patient also have positive blood culture with coagulase-negative staph patient did have a PICC line as well as dialysis catheter etiology of his sepsis is likely multifactorial in this patient who did have a complicated history as the patient has been the hospital for more than a month, including pneumonia and possible line related sepsis versus abdominal source 2-patient did have resolution of his fever and the patient white count is trending down repeat cultures are currently pending patient to continue with the daptomycin and Zosyn and will monitor clinical course closely Dictation was produced using [employer] dictation software. please excuse any grammatical, word or spelling errors. Time with Patient: Less than 30
--- NOTE | 2023-12-22 22:13 | P.PN ---
Subjective Patient is seen for follow-up for acute kidney injury. JT was reinserted on 12/20/2023 Blood pressure has been low with systolic 85-90 mmHg. Urine output about 40-50 mL an hour. Objective - Vital Signs Vital signs: Vital Signs Temp 98.6 F 12/22/23 20:00 Pulse 89 12/22/23 21:00 Resp 38 H 12/22/23 21:00 BP 91/56 12/22/23 21:00 Pulse Ox 97 12/22/23 21:00 FiO2 30 12/22/23 20:09 Intake & Output 12/22/23 12/22/23 12/23/23 06:59 18:59 06:59 Intake Total 225.442 657.515 229.128 Output Total 660 545 150 Balance -434.558 112.515 79.128 Weight 95.7 kg Intake: IV 120 560 150 0.9 KVO 120 10 Dextrose 5% in Water 1, 50 150 000 ml @ 50 mls/hr IV . Q20H [facility] Rx#:[id number] Piperacillin-Tazobactam 3 100 .375 gm In Sodium Chloride 0.9% 100 ml @ 25 mls/hr IVPB Q12HR [facility] Rx #:[id number] Sodium Chloride 0.45% 1, 400 000 ml @ 50 mls/hr IV . Q20H [facility] Rx#:[id number] Intake, IV Titration 80.442 97.515 79.128 Amount Dexmedetomidine/0.9% NaCl 80.442 97.515 79.128 (Pmx) 400 mcg In Empty Bag 1 bag @ 0.2 MCG/KG/HR 4.925 mls/hr IV .[id number] [facility] Rx#:[id number] Tube Feeding 10 Other 15 Output: Drainage 110 120 Right Abdomen 110 120 Urine 550 425 150 Other: Voiding Method Indwelling Catheter Indwelling Catheter ABP, PAP, CO, CI - Last Documented Arterial Blood Pressure 139/59 - Exam patient is on the vent. Examination of the heart S1 and S2 Examination of the lungs bilateral breath sounds are heard Abdomen is soft dressed, RAYA drain noted Examination of lower extremities shows no significant edema in the legs. 1+ edema noted in bilateral upper extremities. - Labs CBC & Chem 7: 12/22/23 05:27 12/22/23 14:09 Labs: Abnormal Lab Results - Last 24 Hours (Table) 12/22/23 12/22/23 12/22/23 Range/Units 00:04 05:20 05:27 WBC 12.3 H (3.8-10.6) k/uL RBC 2.75 L (4.30-5.90) m/uL Hgb 7.7 L (13.0-17.5) gm/dL Hct 24.1 L (39.0-53.0) % RDW 18.9 H (11.5-15.5) % Neutrophils # 10.5 H (1.3-7.7) k/uL ABG pH 7.46 H (7.35-7.45) ABG pCO2 32 L (35-45) mmHg ABG pO2 82 L (83-108) mmHg Hemoglobin 6.8 L* (13.0-17.5) gm/dL Sodium (137-145) mmol/L Chloride (98-107) mmol/L Carbon Dioxide (22-30) mmol/L BUN (9-20) mg/dL Creatinine (0.66-1.25) mg/dL Glucose (74-99) mg/dL POC Glucose (mg/dL) 125 H (70-110) mg/dL Calcium (8.4-10.2) mg/dL 12/22/23 12/22/23 12/22/23 Range/Units 05:27 13:25 14:09 WBC (3.8-10.6) k/uL RBC (4.30-5.90) m/uL Hgb (13.0-17.5) gm/dL Hct (39.0-53.0) % RDW (11.5-15.5) % Neutrophils # (1.3-7.7) k/uL ABG pH (7.35-7.45) ABG pCO2 (35-45) mmHg ABG pO2 (83-108) mmHg Hemoglobin (13.0-17.5) gm/dL Sodium 149 H 149 H (137-145) mmol/L Chloride 120 H (98-107) mmol/L Carbon Dioxide 20 L (22-30) mmol/L BUN 91 H (9-20) mg/dL Creatinine 2.31 H (0.66-1.25) mg/dL Glucose 122 H (74-99) mg/dL POC Glucose (mg/dL) 142 H (70-110) mg/dL Calcium 7.1 L (8.4-10.2) mg/dL 12/22/23 Range/Units 18:50 WBC (3.8-10.6) k/uL RBC (4.30-5.90) m/uL Hgb (13.0-17.5) gm/dL Hct (39.0-53.0) % RDW (11.5-15.5) % Neutrophils # (1.3-7.7) k/uL ABG pH (7.35-7.45) ABG pCO2 (35-45) mmHg ABG pO2 (83-108) mmHg Hemoglobin (13.0-17.5) gm/dL Sodium (137-145) mmol/L Chloride (98-107) mmol/L Carbon Dioxide (22-30) mmol/L BUN (9-20) mg/dL Creatinine (0.66-1.25) mg/dL Glucose (74-99) mg/dL POC Glucose (mg/dL) 139 H (70-110) mg/dL Calcium (8.4-10.2) mg/dL Microbiology - Last 24 Hours (Table) 12/19/23 16:44 Blood Culture - Preliminary Blood Assessment and Plan Assessment: 1. Acute kidney injury secondary to ATN secondary to septic shock. Creatinine 0.86 on admission and up to 5.38 dated November 29, 2023. nonoliguric. UA fairly benign. No hydronephrosis noted on imaging. Started hemodialysis on 11/29/2023 for worsening volume status and acute kidney injury. hemodialysis on hold for last 3 days, will schedule for tomorrow. 2. Perforated small bowel status post exploratory laparotomy with abdominal washout, small bowel resection and J-tube replacement November 25, 2023. 3. A-fib with RVR. s/p amiodarone drip. Also received digoxin this admission. 4. Recently diagnosed gastric B-cell lymphoma. 5. Septic shock. Likely abdominal source. On IV antibiotics. Off vasopressors now. 6. Hypocalcemia secondary to acute kidney injury. Replaced. Improved. 7. Metabolic acidosis secondary to acute kidney injury. Improved. 8. Volume overload, improved significantly. 9. Hypernatremia Plan: Hemodialysis in a.m. Repeat sodium and change to D5W if sodium not improved. Currently not using J-tube show patient cannot have oral free water.
[2023-12-23 05:37] LABS: ABG Base Excess -1.2 mmol/L; ABG HCO3 22 mmol/L (21-25); ABG Oxygen Saturation 96.5 % (94-97); ABG PCO2 28 mmHg (35-45); ABG PO2 76 mmHg (83-108); ABG TCO2 23 mmol/L (19-24); Allen Test Performed? Yes
[2023-12-23 05:53] LABS: Anisocytosis Slight; Basophils % (A) 0 %; Eosinophils % (A) 0 %; HCT 22.2 % (39.0-53.0); Hypochromasia Moderate; Lymphocytes # (A) 2.1 k/uL (1.0-4.8); Lymphocytes % (A) 20 %; MCH 28.4 pg (25.0-35.0); MCHC 31.6 g/dL (31.0-37.0); MCV 89.8 fL (80.0-100.0); Mean Platelet Volume 8.8; Monocytes # (A) 0.3 k/uL (0-1.0); Monocytes % (A) 3 %; Neutrophils # (A) 7.5 k/uL (1.3-7.7); Neutrophils % (A) 75 %; Platelet Count 187 k/uL (150-450); RBC 2.47 m/uL (4.30-5.90); WBC 10.1 k/uL (3.8-10.6)
[2023-12-23 06:01] LABS: African American GFR (CKD) 32 (>60 ml/min/1.73 sqM); Anion Gap 7 mmol/L; Blood Urea Nitrogen 86 mg/dL (9-20); Calcium 7.1 mg/dL (8.4-10.2); Carbon Dioxide 21 mmol/L (22-30); Chloride 121 mmol/L (98-107); Glucose 173 mg/dL (74-99); Non-African American GFR(CKD) 27 (>60 ml/min/1.73 sqM); Sodium 149 mmol/L (137-145)
[2023-12-23 06:06] LABS: Glucose,Whole Blood 171 mg/dL (70-110)
--- NOTE | 2023-12-23 08:05 | XR ---
EXAMINATION TYPE: XR chest 1V portable DATE OF EXAM: 12/23/2023 Comparison: 12/22/2023 Clinical History: 73-year-old male Lung Abscess Findings: Tracheostomy cannula in place. Left PICC tip remains in the upper right atrium. Right anterior chest wall injection port remains probably near or within the IVC. I'm going to moderate right and small le ft pleural effusions. Interstitial density persists on the left. Focal opacity right upper lobe and a pex remains unchanged. Right heart margin remains obscured by adjacent pleural parenchymal opacity. Impression: 1. Relatively similar exam with masslike right apical/right upper lobe opacity likely corresponding t o the lung abscess. 2. Ongoing moderate right and trace left pleural effusions with prominent adjacent atelectasis and/or consolidation. [facility], , 12/23/2023 8:02 AM
--- NOTE | 2023-12-23 09:54 | P.PN ---
Subjective Patient is seen in follow-up for acute kidney injury. Patient underwent exploratory laparotomy with small bowel obstruction NG tube replacement Sep tem2023. Remains off Levophed. Nonoliguric. Started on hemodialysis November 29, 2023. Last dialysis December 18, 2023. Status post tracheostomy December 10, 2023. Renal function stable. Tube feeds currently held. Sodium level 149. Vital signs stable. General: Resting in bed. HEENT: Tracheostomy noted. LUNGS: Scattered rhonchi. HEART: Regular rate and rhythm. ABDOMEN: No drainage. EXTREMITITES: Trace edema. Objective - Vital Signs Vital signs: Vital Signs Temp 98.1 F 12/23/23 08:00 Pulse 80 12/23/23 09:00 Resp 44 H 12/23/23 09:00 BP 97/65 12/23/23 09:00 Pulse Ox 98 12/23/23 09:00 FiO2 30 12/23/23 08:00 Intake & Output 12/22/23 12/23/23 12/23/23 18:59 06:59 18:59 Intake Total 657.515 775.986 150 Output Total 545 665 70 Balance 112.515 110.986 80 Weight 96.1 kg Intake: IV 560 600 150 0.9 KVO 10 Dextrose 5% in Water 1, 50 600 150 000 ml @ 50 mls/hr IV . Q20H [facility] Rx#:[id number] Piperacillin-Tazobactam 3 100 .375 gm In Sodium Chloride 0.9% 100 ml @ 25 mls/hr IVPB Q12HR [facility] Rx #:[id number] Sodium Chloride 0.45% 1, 400 000 ml @ 50 mls/hr IV . Q20H [facility] Rx#:[id number] Intake, IV Titration 97.515 175.986 Amount Dexmedetomidine/0.9% NaCl 97.515 175.986 (Pmx) 400 mcg In Empty Bag 1 bag @ 0.2 MCG/KG/HR 4.925 mls/hr IV .[id number] [facility] Rx#:[id number] Output: Drainage 120 60 Right Abdomen 120 60 Urine 425 605 70 Other: Voiding Method Indwelling Catheter Indwelling Catheter Indwelling Catheter ABP, PAP, CO, CI - Last Documented Arterial Blood Pressure 139/59 - Labs CBC & Chem 7: 12/23/23 05:21 12/23/23 05:21 Labs: Abnormal Lab Results - Last 24 Hours (Table) 12/22/23 12/22/23 12/22/23 Range/Units 13:25 14:09 18:50 RBC (4.30-5.90) m/uL Hgb (13.0-17.5) gm/dL Hct (39.0-53.0) % RDW (11.5-15.5) % ABG pH (7.35-7.45) ABG pCO2 (35-45) mmHg ABG pO2 (83-108) mmHg Hemoglobin (13.0-17.5) gm/dL Sodium 149 H (137-145) mmol/L Chloride (98-107) mmol/L Carbon Dioxide (22-30) mmol/L BUN (9-20) mg/dL Creatinine (0.66-1.25) mg/dL Glucose (74-99) mg/dL POC Glucose (mg/dL) 142 H 139 H (70-110) mg/dL Calcium (8.4-10.2) mg/dL 12/23/23 12/23/23 12/23/23 Range/Units 05:21 05:21 05:28 RBC 2.47 L (4.30-5.90) m/uL Hgb 7.0 L (13.0-17.5) gm/dL Hct 22.2 L (39.0-53.0) % RDW 19.0 H (11.5-15.5) % ABG pH 7.50 H (7.35-7.45) ABG pCO2 28 L (35-45) mmHg ABG pO2 76 L (83-108) mmHg Hemoglobin 6.1 L* (13.0-17.5) gm/dL Sodium 149 H (137-145) mmol/L Chloride 121 H (98-107) mmol/L Carbon Dioxide 21 L (22-30) mmol/L BUN 86 H (9-20) mg/dL Creatinine 2.31 H (0.66-1.25) mg/dL Glucose 173 H (74-99) mg/dL POC Glucose (mg/dL) (70-110) mg/dL Calcium 7.1 L (8.4-10.2) mg/dL 12/23/23 Range/Units 06:05 RBC (4.30-5.90) m/uL Hgb (13.0-17.5) gm/dL Hct (39.0-53.0) % RDW (11.5-15.5) % ABG pH (7.35-7.45) ABG pCO2 (35-45) mmHg ABG pO2 (83-108) mmHg Hemoglobin (13.0-17.5) gm/dL Sodium (137-145) mmol/L Chloride (98-107) mmol/L Carbon Dioxide (22-30) mmol/L BUN (9-20) mg/dL Creatinine (0.66-1.25) mg/dL Glucose (74-99) mg/dL POC Glucose (mg/dL) 171 H (70-110) mg/dL Calcium (8.4-10.2) mg/dL Microbiology - Last 24 Hours (Table) 12/19/23 16:44 Blood Culture - Preliminary Blood Assessment and Plan Plan: Assessment: 1. Acute kidney injury secondary to ATN secondary to septic shock. Creatinine 0.86 on admission and up to 5.38 dated November 29, 2023. Urine output improved, now nonoliguric. UA fairly benign. No hydronephrosis noted on boy ging. Started on hemodialysis November 29, 2023 due to volume overload. Patient initially had a right femoral catheter placed which subsequently became occluded and a left tunneled femoral catheter was placed December 06, 2023. 2. Perforated small bowel status post exploratory laparotomy with abdominal washout, small bowel resection and J-tube replacement November 25, 2023. 3. A-fib with RVR. s/p amiodarone drip. Also received digoxin this admission. 4. Recently diagnosed gastric B-cell lymphoma. 5. Septic shock. Likely abdominal source. On IV antibiotics. Off vasopressors now. 6. Hypocalcemia secondary to acute kidney injury. Replaced. Improved. 7. Metabolic acidosis secondary to acute kidney injury. Stable. Bicarb little low as compensatory for underlying respiratory alkalosis. 8. Volume overload. Improved with diuresis and ultrafiltration. 9. Status post tracheostomy December 10, 2023. 10. Anemia. Component of chronic illness and acute blood loss. Received blood transfusion and DDAVP this admission. On Aranesp. 11. Respiratory alkalosis. 12. Hypernatremia from lack of oral water intake. Plan: Continue to hold hemodialysis. Last dialysis December 18, 2023. Increase D5W to 100 cc an hour. Repeat sodium level this evening. Avoid nephrotoxins. Preserved EF noted on echocardiogram. Phosphorus level 4.7 dated December 18, 2023. Continue to monitor for renal recovery. Case discussed with present at bedside.
--- NOTE | 2023-12-23 10:14 | P.PN ---
Subjective Progress Note Date: 12/23/23 Principal diagnosis: Acute hypoxic respiratory failure requiring intubation mechanical ventilation secondary to aspiration. This is a 73-year-old white male with history of chronic abdominal pain for the last 8 months has been treated with Protonix 40 mg daily for the last 3 months with no improvement. Patient had a 22 pound weight loss in the last [address] of the abdomen and pelvis 3 weeks ago showed thickening of the antral wall with pathological adenopathy posterior to the stomach suspicious of neoplasm. Today the patient underwent elective upper endoscopy to evaluate further, patient received IV sedation by anesthesia endoscope was inserted into the mouth, esop hagus was intubated without any difficulty there was evidence of large amount of liquid and solid food noted in the stomach suggestive of gastric outlet obstruction. Scope could not be advanced through the pylorus, however in the prepyloric area there was a large superficial ulceration identified with multiple biopsies were done from this area. The body cardia and fundus could not adequately visualize because of large amount of retained food in the stomach. Scope was withdrawn back to the stomach and upon careful examination the mucosa of the antrum body and cardia as well as the fundus appeared normal. Procedure was being performed and biopsies were done patient threw up and subsequently became hypoxic there was clearly evidence of witnessed aspiration anesthesia intubated the patient, procedure was terminated, and the patient was transferred to the ICU, this consult was initiated. Patient is now on assist- control rate of 20 tidal volume 500 FiO2 70% PEEP of 10 ABG is pending, earlier ABG showed profound hypoxia patient is on propofol at 50 mcg/kg/min, next ABG is pending. Chest x-ray showed chronic changes without evidence of acute pulmonary disease. 12/20/2023, the patient is being seen for a follow-up. More alert and awake compared to yesterday. He is able to move his fingers and toes on today's evaluation. Following commands. Nevertheless, his J tube has been clogged and was unable to utilize the tube that has been some leaks around the tube. No abdominal distention. No nausea or emesis. Hemodynamically stable. Will undergo hemodialysis today. He remains on pressure control mode of mechanical ventilation at rate of 16, pressure of 10, +5 PEEP with an FiO2 of 30%. Chest x-ray from today is essentially unchanged with a stable cavity in his right uppe r lobe. White cell count of 15.7, hemoglobin 7.2, platelet count is 203, blood gas showed a pH of 7.49 with a pCO2 of 33 and pO2 of 73. BUN is 88 with a creatinine 1.89 and sodium is at 141 with a potassium level of 4.1. He is producing adequate amount of urine output. Fluid balance has been -900 cc over the past 24 hours. Normotensive. Remains on a combination of Zosyn and daptomycin. Remains on Levemir insulin 24 units daily. This is currently on hold as the patient has not been able to obtain enteral feeding. Wound VAC still in place. 12/21/2023, the patient remains on the mechanical ventilator. Overnight, the patient experienced discomfort in his abdomen and he was restless. Based on that, the patient was placed on a higher dose of Precedex which is currently running at 0.6 mcg/kg/h. The patient was also asynchronous with the mechanical ventilator and based on that, the patient was switched to an AC mode and currently is at a rate of 16, tidal volume of 400, FiO2 of 30% with a PEEP of 5. The patient is adequately sedated for now. Chest x-ray remains unchanged. Tra cheostomy tube in place and the patient is having increased amount of respiratory secretions. J tube needs to be replaced today and this will be done by his general surgery as the tube remains clogged. Urine output is low order of 30 cc an hour. Afebrile. Remains on Zosyn and daptomycin. White cell count is 16.9, hemoglobin 7.4 and a platelet count of 280. Blood gas from today showed a pH of 7.46 with a pCO2 of 36 and pO2 of 82. Sodium levels of 144, BUN is 19 with a creatinine of 2.2 and a serum bicarb is at 23. The abdominal wound remains unchanged. RAYA drain is serosanguineous. 12/22/2023, patient remains on Precedex at 0.4 mcg/kg/min. Arousable. Communicates. Profoundly weak. Remains on the mechanical ventilator with a right lung abscess. SIMV mode mode rate of 16, tidal volume of 400, FiO2 30% with a PEEP of 5, with a pressure support of 8. Blood gas showed a pH of 7.46 with a pCO2 of 32 and a pO2 of 82. Chest x-ray remains unchanged with a right upper lobe cavitating lesion/opacity and a suspected lung abscess. This is rated Pseudomonas and the patient remains on IV Zosyn. He remains on daptomycin. Urine output is in order of 50 cc an hour.. The J-tube was unplugged yesterday. Nevertheless, the tube itself is malfunctioning and there is drainage around the tube requiring dressing changes the dressings being soakedConstantly. The patient's white cell count is 12.3 with a hemoglobin 7.7. Sodium is at 149, BUN 91 with a creatinine of 2.3. Bicarb is at 20. Undergoing hemodialysis periodically. Last hemodialysis was on 12/21/2023. Currently NPO. Abdominal wound is clean and the patient has a wound VAC in place. RAYA drain output is serosanguineous. Patient was seen today on 12/23/2023, remains in the ICU, intubated and mechanically ventilated. Patient is on IMV with pressure support/IMV 16, pressure support of 8, tidal volume 400, PEEP of 5. Patient seems to be doing well with that kind of mode of mechanical ventilation, ABG showed a pO2 of 76 pCO2 28 pH of 7.50. I changed his rate from 16-8 kept him otherwise on the same ventilator settings. Plan to gradually go down on the IMV rate until we can get him on pressure support of 8 and CPAP. Patient is requiring Precedex at 0.4 mcg/kg/h, he is on D5W at 50 cc/h. Remains on antibiotics in the form of daptomycin and Zosyn, chest x-ray continues to show bilateral airspace disease and right upper lobe lung abscess. Continues to have a bit of a leak from his J-tube being addressed by surgery has a wound VAC, and he had a RAYA drain. Mentation arce the patient is a bit more appropriate, opens his eyes, follows very simple instructions, seems to comprehend. Patient has a left brachial PICC line, he also has a left groin hemodialysis catheter. WBC count is 10.1 hemoglobin is 7 sodium is 149 potassium 4 chloride is 121 BUN is 86 creatinine 2.31. Blood sugar is 173. Remains on enteral feeding via J-tube, a bit of a leak is noted, and surgery is to address this. Sputum cultures have grown Klebsiella and Pseudomonas and remains on proper antibiotics Objective - Vital Signs Vital signs: Vital Signs Temp 98.1 F 12/23/23 08:00 Pulse 80 10/21/24 09:00 Resp 44 H 12/23/23 09:00 BP 97/65 12/23/23 09:00 Pulse Ox 98 12/23/23 09:00 FiO2 30 12/23/23 08:00 Intake & Output 12/22/23 12/23/23 12/23/23 18:59 06:59 18:59 Intake Total 657.515 775.986 150 Output Total 545 665 70 Balance 112.515 110.986 80 Weight 96.1 kg Intake: IV 560 600 150 0.9 KVO 10 Dextrose 5% in Water 1, 50 600 150 000 ml @ 50 mls/hr IV . Q20H [facility] Rx#:[id number] Piperacillin-Tazobactam 3 100 .375 gm In Sodium Chloride 0.9% 100 ml @ 25 mls/hr IVPB Q12HR [facility] Rx #:[id number] Sodium Chloride 0.45% 1, 400 000 ml @ 50 mls/hr IV . Q20H [facility] Rx#:[id number] Intake, IV Titration 97.515 175.986 Amount Dexmedetomidine/0.9% NaCl 97.515 175.986 (Pmx) 400 mcg In Empty Bag 1 bag @ 0.2 MCG/KG/HR 4.925 mls/hr IV .[id number] [facility] Rx#:[id number] Output: Drainage 120 60 Right Abdomen 120 60 Urine 425 605 70 Other: Voiding Method Indwelling Catheter Indwelling Catheter Indwelling Catheter ABP, PAP, CO, CI - Last Documented Arterial Blood Pressure 139/59 - Exam General: Revealed 73-year-old white male intubated, mechanically ventilated, tracheostomy is intact. Patient is awake, follows simple instructions. Skin: Skin is warm and dry and no rashes or lesions are noted. Eye: Pupils are equal, round and reactive to light, extra-ocular movements are intact; there is normal conjunctiva bilaterally. Ears, nose, mouth and throat: There are moist mucous membranes and no oral lesions. Neck: The neck is supple, there is no tenderness or JVD. Tracheostomy is intact. Cardiovascular: There is a regular rate and rhythm. No murmur, rub or gallop is appreciated. Respiratory: Diminished breath sounds and crackles at the bases no wheezing noted. Gastrointestinal: no rebound, no guarding, no bowel sounds, no significant leak noted from the tubes in the abdomen. Continues to have a J-tube in place, con tinues to have a RAYA drain in place, and a wound VAC in place for Musculoskeletal: No deformities and no limitation range of motion other the patient seems to be generally weak. 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 Neurological: Arousable, opens eyes, follows simple instructions Extremities: Trace of bipedal edema - Labs CBC & Chem 7: 12/23/23 05:21 12/23/23 05:21 Labs: Abnormal Lab Results - Last 24 Hours (Table) 12/22/23 12/22/23 12/22/23 Range/Units 13:25 14:09 18:50 RBC (4.30-5.90) m/uL Hgb (13.0-17.5) gm/dL Hct (39.0-53.0) % RDW (11.5-15.5) % ABG pH (7.35-7.45) ABG pCO2 (35-45) mmHg ABG pO2 (83-108) mmHg Hemoglobin (13.0-17.5) gm/dL Sodium 149 H (137-145) mmol/L Chloride (98-107) mmol/L Carbon Dioxide (22-30) mmol/L BUN (9-20) mg/dL Creatinine (0.66-1.25) mg/dL Glucose (74-99) mg/dL POC Glucose (mg/dL) 142 H 139 H (70-110) mg/dL Calcium (8.4-10.2) mg/dL 12/23/23 12/23/23 12/23/23 Range/Units 05:21 05:21 05:28 RBC 2.47 L (4.30-5.90) m/uL Hgb 7.0 L (13.0-17.5) gm/dL Hct 22.2 L (39.0-53.0) % RDW 19.0 H (11.5-15.5) % ABG pH 7.50 H (7.35-7.45) ABG pCO2 28 L (35-45) mmHg ABG pO2 76 L (83-108) mmHg Hemoglobin 6.1 L* (13.0-17.5) gm/dL Sodium 149 H (137-145) mmol/L Chloride 121 H (98-107) mmol/L Carbon Dioxide 21 L (22-30) mmol/L BUN 86 H (9-20) mg/dL Creatinine 2.31 H (0.66-1.25) mg/dL Glucose 173 H (74-99) mg/dL POC Glucose (mg/dL) (70-110) mg/dL Calcium 7.1 L (8.4-10.2) mg/dL 12/23/23 Range/Units 06:05 RBC (4.30-5.90) m/uL Hgb (13.0-17.5) gm/dL Hct (39.0-53.0) % RDW (11.5-15.5) % ABG pH (7.35-7.45) ABG pCO2 (35-45) mmHg ABG pO2 (83-108) mmHg Hemoglobin (13.0-17.5) gm/dL Sodium (137-145) mmol/L Chloride (98-107) mmol/L Carbon Dioxide (22-30) mmol/L BUN (9-20) mg/dL Creatinine (0.66-1.25) mg/dL Glucose (74-99) mg/dL POC Glucose (mg/dL) 171 H (70-110) mg/dL Calcium (8.4-10.2) mg/dL Microbiology - Last 24 Hours (Table) 12/19/23 16:44 Blood Culture - Preliminary Blood Assessment and Plan Assessment: Impression: Acute hypoxic respiratory failure requiring intubation mechanical ventilation secondary to aspiration. Status post tracheostomy on 12/10/2023 patient continues to have a cavitary lesion/lung abscess involving the right upper lobe. Status post J-tube placement 11/16/2023, multiple complications since then related to the J-tube placement requiring multiple surgeries. Acute peritonitis secondary to above, secondary to small bowel perforation with abdominal contamination Septic shock secondary to above Paroxysmal atrial fibrillation Acute kidney injury requiring hemodialysis secondary to sepsis and septic shock, patient is not being dialyzed today because we have issues with the occluded dialysis catheter and has to be addressed by vascular surgery Weight loss secondary to non-Hodgkin's lymphoma Acute aspiration pneumonia Acute aspiration during upper endoscopy most likely secondary to gastric outlet obstruction secondary to non-Hodgkin's lymphoma based on the pathology from stomach biopsies 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 Critical illness polyneuropathy Metabolic encephalopathy Malfunctioning of the J-tube Recommendation: Continue ventilatory support, will change the IMV rate to 8 from 16 Continue Precedex as the patient gets extremely agitated off Precedex Continue nutritional support/enteral feeding, surgery is addressing the issue with the J-tube. Advance enteral feeding as tolerated Continue antibiotics including daptomycin and Zosyn Continue dialysis Continue to avoid nephrotoxic drugs Continue GI and DVT prophylaxis Updated the on his condition today. Remains critically ill Critical care time is over 30 Overall prognosis remains extremely poor and guarded. General surgery to continue to follow his abdominal wounds and issues with the J-tube. Nephrology is addressing renal status and hemodialysis. Will continue to follow Time with Patient: Greater than 30
[2023-12-23 11:41] LABS: Glucose,Whole Blood 180 mg/dL (70-110)
[2023-12-23 16:59] LABS: Anisocytosis Slight; Hypochromasia Moderate; MCH 28.1 pg (25.0-35.0); MCHC 31.2 g/dL (31.0-37.0); Mean Platelet Volume 9.7; Platelet Count 162 k/uL (150-450); RDW 18.9 % (11.5-15.5)
[2023-12-23 17:57] LABS: Glucose,Whole Blood 171 mg/dL (70-110)
--- NOTE | 2023-12-23 18:20 | P.PN ---
Progress Note - Text Progress Note Date: 12/23/23 Chief Complaint: Aspirated This is a 73-year-old patient, follows with Dr. Patricia Deal. Patient was seen this morning in the ICU. Patient's and daughter at the bedside. History obtained predominantly by the . Patient been having trouble with his stomach symptoms for close to 8 months. Patient underwent EGD by Dr. Sahara Cheng yesterday. Patient was found to have ulcerated around the antrum and obstruction to the pylorus. A lot of retained food was found. Patient aspirated. Had to be intubated and brought to the ICU. On a Levophed drip. FiO2 50 and a PEEP of 6. Patient had been losing weight lost about 25 pounds. Previously has a history of mitral valve prolapse. November 13: ICU. Patient remains on Precedex drip and propofol drip. Did not do well attempted extubation yesterday. Patient been off Levophed. NG tube to suction. Spoke to patient's and son at the bedside. Biopsy results awaited. Hemoglobin dropped to 6.9 this morning. Get a unit of blood. November 14: ICU. Up in a chair. Extubated yesterday. NG tube to suction. at the bedside. 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 Oncology was consulted. They have ordered a port. Results discussed with Dr. Sahara Cheng. General surgery was consulted for J-tube placement. Discussed with at the bedside. Patient getting IV fluids, IV Zosyn,. Patient has been on IV amiodarone for A-fib-back in sinus rhythm. Multiple PACs. Did receive unit of blood yesterday. Also IV ferric gluconate. November 15: ICU. Patient earlier today underwent jejunostomy tube placement and a port placement. Patient awake. Answering questions. NG tube to suction present. Updated patient's . Patient remains on IV amiodarone and IV Zosyn. November 16: ICU. Up in the chair. NG tube present but not to suction. Trickle feeding through the jejunostomy tube should be started today. Dietitian has been on board. IV Zosyn to continue. Patient's and his sister at the bedside. Discussed. Also spoke with Dr. Serna. Given patient has no other predisposing cardiac factors for the A-fib except acute illness. His LV function is normal. Left atrium is normal. He has already been loaded with IV amiodarone. Will switch him to oral Lopressor 12.5 twice daily. Hence will DC amiodarone. Patient yesterday had wheezing was put on bronchodilators steroids per pulmonary. November 17: Propped up in bed. NG tube was discontinued. Sinus rhythm. Remains NPO. Getting G-tube feeding at 40 cc an hour. Dietitian following. Get arrangements done for DC home tomorrow including tube feeding. Increase activity discussed with patient and elder daughter at the bedside. Still requiring oxygen. Incentive spirometry. November 18: Patient up in recliner. Earlier today spoke to social problems specialist David. Informed patient is rather weak and will be going to the [facility]. Looking at authorization. Denae came to the room and spoke to patient his and his daughter. They are very keen to take the patient home as 3 daughters all nurses and they will take care of him at home. Patient earlier today to abdominal cramping and some loose stools.'s tube feeding was held. Told the nurse to start back at the rate of 40 cc an hour. He was before the getting it at 55 cc an hour. Incentive spirometry was again emphasized. Patient remains on 4 L of oxygen. November 19: I saw the patient this morning. Hence I am in the evening. Morning was sitting with his sons. Has some edema. Lungs had crackles I gave him 40 mg of Lasix. He did make good urine. Tube feeding was held from the previous evening of because of abdominal cramping. Acute abdominal series showed nonspecific bowel gas pattern and SBO to be ruled out. Family and patient was updated. Told him discharge will depend on day by day. Later this afternoon CT scanAnd abdomen pelvis done. Showed small bowel to be 3 point centimeter dilated. Some anasarca. Gastric findings. Gallstones. Later spoke to Dr. Irby from general surgery. They will further review and decide about further plan of action. Will give further dose of IV Lasix because of fluid overload from likely hypoalbuminemia and IV fluids previously received. Patient may take his pills by mouth. Total time spent today about 1 hour with over 40 minutes of discussion. Patient did state his breathing is better after Lasix this morning. November 20: Saw the patient this morning. was present. Patient received 2 more doses of Lasix. Diuresed well. Breathing much better. Lungs are sounding better. Discussed with Dr. Zepeda other surgeon. He is taking 3 cc out of the balloon and the gastrostomy tube. Started trickle feeding at 5 cc an hour. Will see how this does. Later in the day ran into the and the daughter again. Did update them on the same. Dilaudid was discontinued yesterday but morphine was ordered by surgery for patient having pain. Concerns about GI issues with that we will DC the morphine. As family does not want the same. November 21: Patient reclining bed. Tired. Several family members at the bedside. Including his and eldest daughter. Patient started on trickle feed yesterday at 5 cc an hour. This morning he has been on 10 cc an hour. Still having some loose stools. C. difficile was ordered. Patient on 2 L of nasal cannula. Has diuresed well. Will give an additional dose of Lasix today. If C. difficile is negative and the diarrhea is from the tube feedings we may have to use a fecal management system to keep him comfortable. Otherwise patient remains NPO. Dietitian is following the patient. Care was discussed length with patient the and daughter at the bedside. Questions answered. Liquid Tylenol has been added for abdominal pain. Avoid narcotics. Elevated white count likely from Solu-Medrol 11/23/2023--patient was feeling better today. Multiple family member at bedside. No issues overnight. Normal saline at 10 cc an hour, tube feeding at 20 cc an hour, remains on Zosyn, on 3 L oxygen. Afebrile. Heart rate 62, respiratory rate 16, blood pressure 114/67, saturating 91% on 3 L. WBCs 14.5, 9.7 hemoglobin. Platelet 242. BMP is unremarkable. Pulmonary and general surgery following. General surgery recommended to continue tube feeds at 20 cc/h. 11/24/2023--patient reported significant abdominal discomfort, also noted to have leak around G-tube. General surgery is following, evaluated the patient at bedside, adjusted tube feeds. Also reported having diarrhea, on 2 L oxygen, went up to 5 L. Blood pressure was low, 500 mL fluid bolus with close monitoring of respiratory status ordered. Currently on DuoNebs, Solu-Medrol, will continue Zosyn. Chest x-ray showed a left lower lobe infiltrate. Abdominal x-ray showed multiple air-fluid levels. CT abdomen showed multiple dilated small bowel loops, consistent with obstruction, pneumoperitoneum, cholelithiasis and ascites. WBCs 14.1, platelet 255, hemoglobin 8.9. NG tube in place. Family at bedside. patient transferred to SICU for close monitoring. 11/25/23--patient is currently in the ICU, required Levophed overnight due to low blood pressure, low urine output with creatinine trending up. Nephrology following. Automobile Repossessor also following. Patient remains n.p.o., NG tube in place, following NG tube insertion patient had total of 2 L output, J-tube was draining approximately 200 cc over last 8 hours, continues to have abdominal pain and abdominal tenderness. Patient on IV fluids. Currently on 4 L oxygen. WBCs 8.2, hemoglobin 12.3, platelet 188. Chest x-ray earlier today showed right sided port and a stable left lung airspace disease, NG tube in place. Patient currently on Zosyn, on IV Dilaudid for pain control, on IV Solu-Medrol. General surgery planning for OR today, started on TPN. 11/26/23--patient was seen and examined today. Patient is currently sedated, intubated on mechanical ventilation. Family at bedside. Patient underwent ex lap, abdominal washout, small bowel resection with new feeding jejunostomy tube placement yesterday, small bowel was noted to be perforated with significant contamination of abdominal cavity. Patient is currently on vancomycin and Zosyn. Creatinine went up to 2.85, nephrology following, recommended to continue IV fluids, avoid nephrotoxin Preserved EF on echocardiogram.. Patient currently on Levophed, vasopressin in the ICU for close monitoring. Patient is afebrile, heart rate 122, blood pressure 129/76, currently on mechanical ventilation, sedated. November 26: ICU. Intubated. FiO2 60 and a PEEP of 5. Drips include IV amiodarone. Heart rate was up early did get fired microgram of IV digoxin and 2.5 mg of IV Lopressor. Did drop her blood pressure bit. Urine output was low. Received 80 mg of IV Lasix. Ahmet to 150 cc. Other drips include IV propofol, vasopressin, Levophed. TPN was started yesterday. Antibiotics include IV Zosyn and vancomycin. Patient has a J-tube to drainage to gravity. Spoke to patient's younger daughter and at the bedside. Prognosis guarded. Continue current treatment plan. Chest x-ray shows right lower lobe consolidation. Small pleural effusion. November 27: ICU. Intubated. FiO2 55 and a PEEP of 5. Antibiotics include IV vancomycin. Drips include Levophed at a small dose, IV vasopressin, propofol, amiodarone. Patient converted to sinus rhythm this morning. Getting TPN and normal saline at 75 cc an hour. Urine output about 25 cc an hour. RAYA drain put out about 260 cc last 12 hours that is last night order selector. NG tube with bilious output. And also GI J-tube output to gravity. Spoke to patient's and daughter at the bedside. They understand patient still not out of the kee. Platelets have dropped-therefore probably Zosyn stopped. November 28: ICU. Intubated. FiO2 55 and a PEEP of 5. Patient is in sinus rhythm. Seen this morning. Due for dialysis catheter this afternoon. Urine output about 15 to 20 cc an hour. Patient is on IV Lasix 80 mg every 12. Saline is KVO. Drips include IV propofol vasopressin. Patient having significant output through the RAYA drain and the jejunostomy tube to drainage. Creatinine had been getting worse. Patient's at the bedside. Understands patient's remains critically ill. Hemoglobin is down to 7. Given that patient's pain hypotensive, and on vasopressin we will give a unit of blood with dialysis. Getting TPN antibiotic changed to IV meropenem November 29: ICU. Intubated. FiO2 55 and a PEEP of 5. Remains in sinus rhythm. Getting TPN. Dialyzed yesterday and this morning. About 1000 cc removed. Urine output about 50 cc an hour. Patient is on IV propofol. Off vasopressin. Still having significant output through the RAYA drain and jejunostomy tube. Patient received a second unit of blood yesterday. Patient's and daughter at the bedside. I did discuss guarded prognosis. Did asked them to revisit CODE STATUS.. Getting IV meropenem. November 30: ICU. Intubated. Did get a sedation holiday t today. Back on propofol. Getting TPN. Still getting IV Lasix. Fair urine output. Jejunostomy tube in last 8 hours was about 30 cc output. RAYA drain in the 8 hours had about 180 cc output. Telemetry shows sinus rhythm. NG tube has low intermittent suction with negative output. On the vent with FiO2 40 and a PEEP of 5. No hemodialysis today. Discussed with the and eldest daughter at the bedside. IV meropenem-patient's sputum had grown Citrobacter freundii and Pseudomonas aeruginosa. December 01: ICU. Intubated. Jejunostomy tube to gravity. Only 10 cc output in last 24 hours. RAYA drain. About 190 cc last 6 hours. Nasogastric tube to low intermittent suction. Minimal output. Patient is on a small dose of propofol 5 mics. Telemetry shows sinus rhythm. Patient started on small dose of Cleviprex this morning. Blood pressure. Getting TPN. FiO2 35 and PEEP of 5. Discussed with the at the bedside. Hemodialysis today December 02: ICU. Patient remains intubated. FiO2 35 PEEP of 5. Patient is on IV propofol. IV Cleviprex was discontinued yesterday. Also remains on TPN. Telemetry shows sinus rhythm. NG tube is good no output. Still significant output through the RAYA drain. Jejunostomy tube has minimal output. Patient had hemodialysis today 2 L of fluid was removed. Oral half liters yesterday. Patient getting a sedation holiday. General Surgery started the patient on trickle feeding at 10 cc an hour. I did speak to patient's at the bedside. Prognosis remains guarded but there is some improvement. December 03: ICU. Intubated. FiO2 35 PEEP of 5. Drips include IV propofol and Precedex. Getting TPN. Telemetry shows sinus rhythm. Remains on IV Lasix 80 mg twice a day. IV meropenem. Because patient gets easily agitated when transitioning off propofol he has been switched over to Precedex. For hemodialysis today. December 04: ICU. Intubated. FiO2 35 and a PEEP of 5. Patient been taken off propofol is on Precedex. Telemetry sinus rhythm. J-tube with minimal output. RAYA drain with decreased output. NG tube to suction minimal output. Family wanted to hold off trickle feeding until cleared by oncology. Which he did today. Trickle feeding will be started today. Spoke to patient's and one of the daughters at the bedside. Dr. Russ is spoken to the earlier this point they want to do further tracheostomy tube. December 05: ICU. Intubated. FiO2 35 PEEP of 5. Patient remains on Precedex and PPN. Patient's dialysis catheter was not functioning is getting another [address] Bobby this afternoon. Remains on IV meropenem. Has a RAYA drain in the jejunostomy tube to gravity. NG tube to low intermittent suction. No family at the bedside. December 06: ICU. Intubated. FiO2 35 PEEP of 5. RAYA drain putting out about approximately 120 cc per shift. Patient on IV Precedex. FiO2 35 PEEP of 5. Telemetry-sinus rhythm. Patient occasionally been put on small dose of Levophed specially for hemodialysis getting it today. Also started on midodrine for low blood pressure. Tolerating tube feeding at 10 cc an hour. Also had a bowel movement. Mentation has not improved. Even with sedation holiday. Neurology consulted. CT brain shows no acute process. December 07: ICU. Intubated. FiO2 35 PEEP of 5. Telemetry-sinus rhythm. NG tube to suction low intermittent minimal output. Getting TPN. Tube feeding at 20 cc an hour. RAYA drain averaging over 100 cc per shift. Remains on Precedex. EEG was done today. Discussed with at the bedside. Family is currently not inclined for tracheostomy tube today. Day 13 of being intubated December 08: ICU. Intubated. FiO2 35 PEEP of 5. Patient is put on back on propofol per warehouse receiving clerk Dr. BINGHAM. EEG did show some potential for spikes was put on Keppra by neurology. Telemetry shows sinus rhythm. NG tube to suction with no output. Tube feeding was put on hold because of questionable discharge on the site. Being restarted today. RAYA drain is 150 cc last 12-hour shift. Patient does open eyes. Family has decided to proceed with tracheostomy and surgery has been consulted for the same. Spoke to the at the bedside. For hemodialysis today. December 09: ICU. Intubated FiO2 35 PEEP of 5. Patient seen this morning. Pending tracheostomy placement this afternoon. Remains NPO. G-tube feeding was held overnight. RAYA drain putting out about 100 cc per shift. Received a unit of blood for hemoglobin of 6.6. On 25 mics of propofol. Getting TPN and meropenem. Spoke to the at the bedside. Patient became hypotensive with dialysis yesterday. Levophed had to be given. Only 800 cc were removed yesterday. No hemodialysis today. December 10: ICU . FiO2 35, PEEP 5. Tracheostomy was done yesterday by Dr. Ewing. G-tube feeding was started today at 10 cc an hour. Dietitian following. RAYA drain 12-hour shift overnight put out about 30 cc. Patient hemodialysis to day about 1 L removed. Patient has a sacral stage II decub with a dressing. On propofol 20 mics. Spoke to at the bedside. TPN. Meropenem was discontinued yesterday. December 11: ICU. FiO2 35 PEEP of 5. Tracheostomy. NG tube was discontinued. No hemodialysis today. Telemetry shows sinus rhythm. J-tube feeding at 40 cc an hour. TPN was discontinued. Patient has been off propofol also. PICC line in place. Patient had a EEG done today. Spoke to patient's elder daughter at the bedside. May open eyes occasionally. Not really following commands December 12: 73-year-old white male with history of chronic abdominal pain for the last 8 months has been treated with Protonix 40 mg daily for the last 3 months with no improvement. Patient had a 22 pound weight loss in the last [address] of the abdomen and pelvis 3 weeks ago showed thickening of the antral wall with pathological adenopathy posterior to the stomach suspicious of neoplasm. Today the patient underwent elective upper endoscopy to evaluate further, patient received IV sedation by anesthesia endoscope was inserted into the mouth, esophagus was intubated without any difficulty there was evidence of large amount of liquid and solid food noted in the stomach suggestive of gastric outlet obstruction. Scope could not be advanced through the pylorus, however in the prepyloric area there was a large superficial ulceration identified with multiple biopsies were done from this area. The body cardia and fundus could not adequately visualize because of large amount of retained food in the stomach. Scope was withdrawn back to the stomach and upon careful examination the mucosa of the antrum body and cardia as well as the fundus appeared normal. Procedure was being performed and biopsies were done patient threw up and subsequently became hypoxic there was clearly evidence of witnessed aspiration anesthesia intubated the patient, procedure was terminated, and the patient was transferred to the ICU, this consult was initiated. Patient is now on assist- control rate of 20 tidal volume 500 FiO2 70% PEEP of 10 ABG is pending, earlier ABG showed profound hypoxia patient is on propofol at 50 mcg/kg/min, next ABG is pending. Chest x-ray showed chronic changes without evidence of acute pulmonary disease. 12/14/2023 Patient remains in the ICU, generally weak Patient s/p tracheostomy G-tube in place Patient still has fever and mild tachycardia but tachycardia is improving, leukocytosis improving as well. Hemoglobin 8.1. Creatinine 3.0 and nephrology team on the case. He has mild transaminitis. He was getting Zosyn which is held now, nowCalcitonin is pending 12/14 Patient shon in the ICU, he is still encephalopathic and does not follow command. Neurology service following closely. He is status post tracheostomy. Also J-tube His abdomen looks soft and on exam he has mild coarse secretions. Has a Abarca catheter with clear urine His pro- Calcitonin is still high but trending down 3.0 down to 1.9 No fever this morning WBC slightly less at 16.3 Patient currently off antibiotic He is getting steroids IV Solu-Medrol which might contribute to his leukocytosis. Also he is on IV Keppra by neurologist 12/14 Patient remains confused in the ICU calm, he had a good night per family member and staff. Tracheostomy in place Patient has occasional coughing spells, patient also developed some partial wound dehiscence in his abdomen, surgery team are aware and are going to evaluate the patient Patient also has positive blood culture from 12/13: Gram-positive cocci in clusters. Patient received one-time dose of IV vancomycin. Patient also had fever 2 days ago, leukocytosis and total elevated pro- Calcitonin. Therefore we are going to consult infectious disease team. As his antibiotic Zosyn was stopped few days ago. Currently patient KVO He has good urine output December 16: ICU. Trach. Congested. Requiring suctioning. No hemodialysis today. Getting G-tube feeding at 50 cc an hour. FiO2 30 and a PEEP of 5. On IV Precedex. Eyes open. Does follow commands. Weakness in the limbs. Spoke to at the bedside. Sputum positive for Klebsiella oxytoca and Pseudomonas aeruginosa. December 17: ICU. On trach. Currently cough with increased secretions requiring suctioning. Adding scopolamine patch. Very much clear secretion. CT scan is showing right upper lobe lung abscess. G-tube feeding at 50 cc an hour. Hemodialysis today. RAYA drain putting out about 140 cc a shift. Serous. Has been midline incision wound dehiscence. Wound VAC was placed on it. Stage II ulcer. Patient is on Precedex drip 0.15 mics. Urine output is good about 6200 cc an hour. Spoke to the at the bedside. Patient currently not stable for transfer to LTAC. No limb movements. PT OT on the case. otherwise awake does follow simple commands by face December 18: ICU. Patient seen this afternoon. Because of pain getting IV Dilaudid. No nasal cannula on room air. Does move about his head. Telemetry shows sinus rhythm. FiO2 30 and a PEEP of 5. Patient started on scopolamine patch yesterday has decreased secretions today. Good urine output. Tube fee ding at 60 cc an hour. Wound VAC on incisional would be high since in place. RAYA drain continues to make output. No hemodialysis today December 19: ICU. Patient was seen earlier today. FiO2 30 and a PEEP of 5. Sinus rhythm. Awake. Does follow with eyes. Tube feeding got obstructed tube feedings held for now. Increasing oozing from the incision drainage site. at the bedside. Wound VAC remains in place. Good urine output. Dialysis held today. December 20: ICU. Per nephrology no dialysis today. 1 L fluid bolus given. J- tube was replaced over the wire by Dr. Ewing from surgery. On Precedex 0.6 mcg. FiO2 30 and a PEEP of 5 on the vent. RAYA drain putting out of around 100 cc per shift. at the bedside. Drainage through the abdominal incision wound. CT scan abdomen showed tube placement in the small bowel. Stable large right lower quadrant mass with a fluid level. December 21: ICU. No dialysis today. Patient started on trickle feeding through the J-tube yesterday. He started leaking around the J-tube site. Tube feeding was held. Dressings were placed. Wound VAC remains on the incision. Still having output through the RAYA drain. Patient remains on Precedex 0.4 mcg. FiO2 30 and a PEEP of 5. Sinus rhythm. at the bedside. December 22: ICU. Patient was seen this morning today by me. No dialysis today. Patient's and daughter at the bedside. FiO2 30 and a PEEP of 5. Sinus rhythm. Still having significant secretions through the tracheostomy tube. On Precedex 0.4 mcg. Getting D5W IV fluids. Tube feeding remains to be on hold since yesterday. Still output of RAYA drain. Awaiting input from surgery. Discussed with the and daughter. Active Medications Acetaminophen (Acetaminophen Tab 325 Mg Tab) 650 mg PO Q4HR PRN PRN Reason: Fever and/ or Pain Last Admin: 12/09/23 20:09 Dose: 650 mg Acetaminophen (Acetaminophen Oral Susp (Peds) 3,840 Mg/120 Ml Bottle) 480 mg PO Q4HR PRN PRN Reason: Fever Albuterol/Ipratropium (Ipratropium-Albuterol 3 Ml Neb) 3 ml INHALATION RT-QID NIRMAL Last Admin: 12/23/23 15:01 Dose: 3 ml Albuterol/Ipratropium (Ipratropium-Albuterol 3 Ml Neb) 3 ml INHALATION RT-Q2H PRN PRN Reason: Shortness Of Breath Or Wheezing Last Admin: 12/03/23 03:45 Dose: 3 ml Chlorhexidine Gluconate (Chlorhexidine Gluconate 15 Ml Cup) 15 ml MUCOUS MEM BID COUNTS INCLUDE 234 BEDS AT THE [facility] Last Admin: 12/23/23 08:09 Dose: 15 ml Darbepoetin Scooby (Darbepoetin Scooby 40 Mcg/0.4 Ml Syringe) 40 mcg SQ Q7D COUNTS INCLUDE 234 BEDS AT THE [facility] Last Admin: 12/17/23 07:51 Dose: 40 mcg Dextrose/Water (Dextrose 50% Syringe 50 Ml) 25 ml IVP PER PROTOCOL PRN; Protocol PRN Reason: Hypoglycemia Dextrose/Water (Dextrose 50% Syringe 50 Ml) 50 ml IVP PER PROTOCOL PRN; Protocol PRN Reason: Hypoglycemia Hydromorphone HCl (Hydromorphone 0.5 Mg/0.5 Ml Syringe) 0.25 mg IVP Q3H PRN PRN Reason: Pain Last Admin: 12/23/23 14:45 Dose: 0.25 mg Sodium Chloride (Saline 0.9%) 1,000 mls @ 20 mls/hr IV .Q24H COUNTS INCLUDE 234 BEDS AT THE [facility] Last Admin: 12/23/23 12:13 Dose: Not Given Dexmedetomidine HCl 400 mcg/ (IV Solution) 100 mls @ 4.925 mls/hr IV .[id number] COUNTS INCLUDE 234 BEDS AT [facility]; Protocol Last Admin: 12/23/23 06:04 Dose: 0.4 mcg/kg/hr, 9.85 mls/hr Piperacillin Sod/Tazobactam (Sod 3.375 gm/ Sodium Chloride) 100 mls @ 25 mls/hr IVPB Q12HR [facility]; Protocol Last Admin: 12/23/23 08:10 Dose: 25 mls/hr Daptomycin 600 mg/ Sodium (Chloride) 50 mls @ 100 mls/hr IVPB Q48H [facility]; Protocol Last Admin: 12/23/23 08:10 Dose: 100 mls/hr Dextrose/Water (Dextrose 5%-Water Iv Soln) 1,000 mls @ 100 mls/hr IV .Q10H NIRMAL Last Admin: 12/23/23 12:13 Dose: 100 mls/hr Insulin Aspart (Insulin Aspart (Novolog) 100 Unit/Ml Vial) 0 unit SQ 0000,0600,1200,1800 NIRMAL; Protocol Last Admin: 12/23/23 12:13 Dose: 2 unit Insulin Detemir (Insulin Detemir (Levemir) 100 Unit/Ml Syr) 24 unit SQ DAILY@0700 COUNTS INCLUDE 234 BEDS AT [facility] Last Admin: 12/23/23 06:13 Dose: 24 unit Levetiracetam (Levetiracetam Iv 500 Mg/5 Ml Vial) 500 mg IVP Q24HR COUNTS INCLUDE 234 BEDS AT [facility] Last Admin: 12/23/23 08:09 Dose: 500 mg Lorazepam (Lorazepam 2 Mg/Ml Inj) 1 mg IV Q4HR PRN PRN Reason: Anxiety Last Admin: 12/21/23 03:23 Dose: 0.5 mg Metoprolol Tartrate (Metoprolol Tartrate 5 Mg/5 Ml Vial) 2.5 mg IVP Q6HR PRN PRN Reason: Heart Rate - HIGH Last Admin: 11/27/23 08:25 Dose: 2.5 mg Miscellaneous Information (Magnesium Replacement Protocol 1 Each Misc) 1 each MISCELLANE DAILY PRN; Protocol PRN Reason: Per Protocol Multi-Ingredient Ointment (Zinc Oxide 20% Oint 28.4 Gm Tube) 1 applic TOPICAL BID PRN; Protocol PRN Reason: Skin Irritation Naloxone HCl (Naloxone 0.4 Mg/Ml 1 Ml Vial) 0.2 mg IV Q2M PRN PRN Reason: Opioid Reversal Pantoprazole Sodium (Pantoprazole 40 Mg/10 Ml Vial) 40 mg IVP BID COUNTS INCLUDE 234 BEDS AT [facility] Last Admin: 12/23/23 08:09 Dose: 40 mg Petrolatum (Zinc Oxide Paste (Z-Guard) 1 Applic) 1 applic TOPICAL BID NIRMAL; Pr otocol Last Admin: 12/23/23 08:30 Dose: 1 applic Past medical history to include: GERD Social history: . No smoking. Physical examination: VITAL SIGNS: 98, 90, 15, 103 x 67, 99% on the ventilator GENERAL: Eyes open moving head. Left groin dialysis access. EYES: Pupils equal. Conjunctiva edouard l. HEENT: External appearance of nose and ears normal, tracheostomy-with secretions NECK: JVD unable to assess; masses not palpable. HEART: First and second heart sounds are normal; edema, present LUNGS: Respiratory rate increased, decreased breath sounds ABDOMEN: Soft, some tenderness. Liver spleen not palpable, no masses palpable..jejunostomy tube-feeding held. RAYA drain. Incision with stitches with - wound VAC PSYCH: Unable to assess NEURO: Very little movement in limbs. Eyes open. Moves head to command INVESTIGATIONS, reviewed in the clinical context: December 22: White count 9 hemoglobin 7 platelets 187 sodium 149 potassium 4 BUN 86 creatinine 2.31 December 21: White count 12.3 hemoglobin 7.7 platelets 219 sodium 149 potassium 4.3 BUN [address] chest abdomen without contrast [December 16] right upper lung cavitary lesion with air-fluid level in the posterior aspect and a larger cavitary lesion possibly within the lung parenchyma itself. Extending down towards the diaphragm additional airspace opacities in the left lung base. December 10: White count 21.3 hemoglobin 7.4 platelets 129 potassium 4.2 BUN 111 creatinine 3.77 December 09: White count 26.1 hemoglobin 8.6 platelets 154 potassium 4.1 BUN 86 creatinine 3.31. Hemoglobin this morning was 6.6 prior to transfusion EEG-evidence of generalized cerebral dysfunction and sporadic intermittent higher amplitude sharply contoured waves mainly bifrontal. Showing cortical irritability. 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 Serosal fibrous adhesions. Viable margins. Sputum culture: [November 25]: Citrobacter freundii. Pseudomonas aeruginosa November 20: White count 14.4 hemoglobin 8.8 platelets 229 potassium 4.1 BUN [address] scan abdomen [November 19] possible small bowel obstruction Stool: C. difficile negative November 15: WBC 13 hemoglobin 7.7 platelets 248 potassium 4.3 creatinine 0.87 2D echo: EF 55 to 60%. Kidneys bladder: Unremarkable November 13: White count 12 hemoglobin 6.9 platelets 276 potassium 4.4 creatinine 1.21 magnesium 1.8 iron 6 TIBC 365% saturation 1.64 transferrin 261 ferritin 34.6 B12 569 folate 4.4 November 11: Creatinine 0.86 EGD: Large amount of retained solid liquid food noted in the stomach. Large superficial gastric antral ulceration involving most of the antrum extending into the pylorus causing pyloric stenosis. Biopsies were obtained. Chest x-ray film personally reviewed by me-scattered infiltrates Assessment plan: -Aspiration pneumonitis bilateral from retained gastric contents mostly food and liquids, causing acute hypoxic respiratory failure: On presentation: Subsequent sputum culture November 25: Citrobacter freundii, Pseudomonas aeruginosa. December 13: Klebsiella oxytoca, Pseudomonas aeruginosa IV meropenem-was received originally. Now receiving IV daptomycin Pulmonary following -Probable lung abscess larger 1 on the right side-patient cultures are growing Pseudomonas and Klebsiella oxytoca IV Zosyn -Acute pulmonary edema and fluid overload from hypoalbuminemic state and fluids from IV.:: Has been getting Lasix and dialysis -Altered mentation. Possibly encephalopathy. Could be delirium.: Some improvement CT brain [December 06] nothing acute Neurology following EEG-evidence of generalized cerebral dysfunction and sporadic intermittent higher amplitude sharply contoured waves mainly bifrontal. Showing cortical irritability. Keppra was started on December 07 -Critical care poly- Pedro neuropathy PT OT -Gallstones, asymptomatic -Small l bowel perforation at site of jejunostomy tube tip with balloon..: Portion of small bowel resected. On November 24. New J-tube was placed.- drainage to gravity:-Now discontinued December 19: J-tube blocked. J-tube replaced on December 20 over wire December 21: Leaking around the G-tube site. Feeding held -Acute kidney injury. Possible ATN from hypotensive shock: Slow to respond Renal ultrasound unremarkable. Started on renal replacement therapy on November 28. Followed by nephrology -Nutrition Jejunostomy tube placed November [address] Ewing Received TPN -Midline abdominal incision wound dehiscence Wound VAC placed -Acute recurrent atrial fibrillation-converted to sinus rhythm Received IV amiodarone. Cardiology following Lopressor -Acute hypoxic respiratory failure from aspiration pneumonia, status post ventilator assisted: Reintubated November 25. FiO2 35 PEEP of 5 Tracheostomy tube-by Dr. Zepeda on December 09 -Septic shock, recovered -Hypertension Patient started on Cleviprex-discontinued -Intermittent hypotension Intermittent use of Levophed. 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 Also anemia of blood draw. Iron deficiency anemia Received 3rd unit of blood . IV iron. -Severe thrombocytopenia. Would consider coagulation disorder secondary to infection., In the setting of underlying lymphoma.: Recovered Hematology following. -Acute blood loss anemia, Has received 3 units of blood -Sacral stage II decub ulcer Dressing in place -GERD PPI -Acute diarrhea secondary to tube feeding.: Resolved C. difficile ruled out. -Large superficial gastric antral ulceration involving the gastric antrum extending into the pylorus with gastric outlet obstruction. 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 Port placed. For outpatient PET scan. -Full code No dialysis today. Getting IV fluids. Tube feeding remains to be held through the J-tube. Await input from surgery. Remains on Precedex drip. Gnosis guarded. Past Medical History Past Medical History: GERD/Reflux History of Any Multi-Drug Resistant Organisms: None Reported Past Surgical History: Heart Catheterization Additional Past Surgical History / Comment(s): colonsocopy,spinal injection, Past Anesthesia/Blood Transfusion Reactions: No Reported Reaction Past Psychological History: No Psychological Hx Reported Smoking Status: Never smoker Past Alcohol Use History: None Reported Past Drug Use History: None Reported
--- NOTE | 2023-12-23 19:51 | P.PN ---
Subjective Progress Note Date: 12/23/23 Patient seen and examined at bedside. Daughter at bedside. Still having some drainage around J-tube site. Objective - Vital Signs Vital signs: Vital Signs Temp 97.9 F 12/23/23 18:56 Pulse 86 12/23/23 19:30 Resp 19 12/23/23 19:30 BP 84/58 12/23/23 19:10 Pulse Ox 100 12/23/23 19:30 FiO2 30 12/23/23 19:30 Intake & Output 12/23/23 12/23/23 12/24/23 06:59 18:59 06:59 Intake Total 321.747 2645 100 Output Total 665 1025 30 Balance 110.986 75 70 Weight 96.1 kg 96.1 kg Intake: IV 600 1000 100 Dextrose 5% in Water 1, 600 1000 100 000 ml @ 100 mls/hr IV . Q10H [facility] Rx#:[id number] Intake, IV Titration 175.986 100 Amount Dexmedetomidine/0.9% NaCl 175.986 100 (Pmx) 400 mcg In Empty Bag 1 bag @ 0.2 MCG/KG/HR 4.925 mls/hr IV .[id number] NIRMAL Rx#:[id number] Blood Product 0 Rc As-1 Unit 0 [id number] Output: Drainage 60 80 Right Abdomen 60 80 Urine 605 945 30 Other: Voiding Method Indwelling Catheter Indwelling Catheter ABP, PAP, CO, CI - Last Documented Arterial Blood Pressure 139/59 - Constitutional Constitutional Comment(s): Vented - Respiratory Details: No difficulty on ventilator with tracheostomy - Gastrointestinal Gastrointestinal Comment(s): Soft, nontender, midline incision with wound VAC in place, J-tube in place with some mild succus like drainage around the site - Musculoskeletal Musculoskeletal: Present: generalized weakness - Labs CBC & Chem 7: 12/23/23 16:48 12/23/23 16:45 Labs: Abnormal Lab Results - Last 24 Hours (Table) 12/10/23 12/23/23 12/23/23 Range/Units 05:15 05:21 05:21 RBC 2.47 L (4.30-5.90) m/uL Hgb 7.0 L (13.0-17.5) gm/dL Hct 22.2 L (39.0-53.0) % RDW 19.0 H (11.5-15.5) % ABG pH (7.35-7.45) ABG pCO2 (35-45) mmHg ABG pO2 (83-108) mmHg Hemoglobin (13.0-17.5) gm/dL Sodium 149 H (137-145) mmol/L Chloride 121 H (98-107) mmol/L Carbon Dioxide 21 L (22-30) mmol/L BUN 86 H (9-20) mg/dL Creatinine 2.31 H (0.66-1.25) mg/dL Glucose 173 H (74-99) mg/dL POC Glucose (mg/dL) (70-110) mg/dL Calcium 7.1 L (8.4-10.2) mg/dL Crossmatch See Detail 12/23/23 12/23/23 12/23/23 Range/Units 05:28 06:05 11:40 RBC (4.30-5.90) m/uL Hgb (13.0-17.5) gm/dL Hct (39.0-53.0) % RDW (11.5-15.5) % ABG pH 7.50 H (7.35-7.45) ABG pCO2 28 L (35-45) mmHg ABG pO2 76 L (83-108) mmHg Hemoglobin 6.1 L* (13.0-17.5) gm/dL Sodium (137-145) mmol/L Chloride (98-107) mmol/L Carbon Dioxide (22-30) mmol/L BUN (9-20) mg/dL Creatinine (0.66-1.25) mg/dL Glucose (74-99) mg/dL POC Glucose (mg/dL) 171 H 180 H (70-110) mg/dL Calcium (8.4-10.2) mg/dL Crossmatch 12/23/23 12/23/23 12/23/23 Range/Units 16:45 16:48 17:15 RBC 2.20 L (4.30-5.90) m/uL Hgb 6.2 L* (13.0-17.5) gm/dL Hct 19.8 L* (39.0-53.0) % RDW 18.9 H (11.5-15.5) % ABG pH (7.35-7.45) ABG pCO2 (35-45) mmHg ABG pO2 (83-108) mmHg Hemoglobin (13.0-17.5) gm/dL Sodium 149 H (137-145) mmol/L Chloride (98-107) mmol/L Carbon Dioxide (22-30) mmol/L BUN (9-20) mg/dL Creatinine (0.66-1.25) mg/dL Glucose (74-99) mg/dL POC Glucose (mg/dL) (70-110) mg/dL Calcium (8.4-10.2) mg/dL Crossmatch See Detail 12/23/23 Range/Units 17:55 RBC (4.30-5.90) m/uL Hgb (13.0-17.5) gm/dL Hct (39.0-53.0) % RDW (11.5-15.5) % ABG pH (7.35-7.45) ABG pCO2 (35-45) mmHg ABG pO2 (83-108) mmHg Hemoglobin (13.0-17.5) gm/dL Sodium (137-145) mmol/L Chloride (98-107) mmol/L Carbon Dioxide (22-30) mmol/L BUN (9-20) mg/dL Creatinine (0.66-1.25) mg/dL Glucose (74-99) mg/dL POC Glucose (mg/dL) 171 H (70-110) mg/dL Calcium (8.4-10.2) mg/dL Crossmatch Microbiology - Last 24 Hours (Table) 12/19/23 16:44 Blood Culture - Preliminary Blood Assessment and Plan Plan: Patient's J-tube site continues to leak, however improved from significant leakage. Begin trickle feeds. I discussed case in depth with patient's daughter at bedside. At this point, there is no recommendation for further surgical intervention as patient's overall prognosis is guarded and patient will likely not tolerate the procedure well. Will attempt trickle feeds, however if patient continues to have significant output recommend holding tube feeds and considering starting TPN as nutrition source. Patient's daughter is agreeable and does not want any further surgical intervention.
[2023-12-23 22:43] LABS: HCT 19.8 % (39.0-53.0); HGB 6.2 gm/dL (13.0-17.5)
[2023-12-24 00:46] LABS: Anisocytosis Slight; HCT 23.8 % (39.0-53.0); HGB 7.4 gm/dL (13.0-17.5); Hypochromasia Marked; MCH 28.9 pg (25.0-35.0); MCHC 31.2 g/dL (31.0-37.0); MCV 92.8 fL (80.0-100.0); Mean Platelet Volume 8.1; Platelet Count 162 k/uL (150-450); RBC 2.56 m/uL (4.30-5.90); RDW 18.4 % (11.5-15.5); WBC 10.7 k/uL (3.8-10.6)
[2023-12-24 00:52] LABS: Glucose,Whole Blood 57 mg/dL (70-110)
[2023-12-24] MEDS: DEXTROSE 50% SYRINGE 50 ML IVP PRN (01:01)
[2023-12-24 01:03] LABS: Glucose,Whole Blood 54 mg/dL (70-110)
[2023-12-24 01:27] LABS: Glucose,Whole Blood 90 mg/dL (70-110)
[2023-12-24 05:40] LABS: Glucose,Whole Blood 93 mg/dL (70-110)
[2023-12-24 05:41] LABS: ABG Base Excess -1.5 mmol/L; ABG HCO3 22 mmol/L (21-25); ABG Oxygen Saturation 96.9 % (94-97); ABG PCO2 32 mmHg (35-45); ABG PH 7.45 (7.35-7.45); ABG PO2 81 mmHg (83-108); ABG TCO2 23 mmol/L (19-24); Allen Test Performed? Yes
[2023-12-24 06:28] LABS: African American GFR (CKD) 36 (>60 ml/min/1.73 sqM); Anion Gap 6 mmol/L; Blood Urea Nitrogen 74 mg/dL (9-20); Calcium 7.2 mg/dL (8.4-10.2); Carbon Dioxide 19 mmol/L (22-30); Chloride 122 mmol/L (98-107); Glucose 88 mg/dL (74-99); Non-African American GFR(CKD) 31 (>60 ml/min/1.73 sqM); Potassium 3.5 mmol/L (3.5-5.1); Sodium 147 mmol/L (137-145)
[2023-12-24 06:56] LABS: Anisocytosis Slight; Basophils # (A) 0.1 k/uL (0-0.2); Basophils % (A) 1 %; Eosinophils % (A) 0 %; HCT 24.9 % (39.0-53.0); HGB 7.8 gm/dL (13.0-17.5); Hypochromasia Marked; Lymphocytes # (A) 1.9 k/uL (1.0-4.8); Lymphocytes % (A) 18 %; MCH 29.7 pg (25.0-35.0); MCHC 31.3 g/dL (31.0-37.0); Macrocytosis Slight; Monocytes # (A) 0.3 k/uL (0-1.0); Monocytes % (A) 3 %; Neutrophils # (A) 8.1 k/uL (1.3-7.7); Neutrophils % (A) 77 %; Platelet Count 137 k/uL (150-450); RBC 2.62 m/uL (4.30-5.90); RDW 18.3 % (11.5-15.5); WBC 10.6 k/uL (3.8-10.6)
--- NOTE | 2023-12-24 07:53 | XR ---
EXAMINATION TYPE: XR chest 1V portable DATE OF EXAM: 12/24/2023 COMPARISON: 12/23/2023 HISTORY: SOB, Follow Up FINDINGS: Indwelling tubes and catheters are unchanged. Opacity throughout the right lung. Stable appearance of the cardio-mediastinal structures at this time. Pleural effusion unchanged. IMPRESSION: 1. Stable portable chest. Clinical correlation and follow up until resolution is recommended. [facility], , 12/24/2023 7:51 AM
[2023-12-24] MEDS: POTASSIUM CHLORIDE 20 MEQ in WATER FOR INJECTION 1 100ML.BAG IVPB SCH (08:51)
[2023-12-24] MEDS: DEXTROSE 5% IN WATER 1,000 ML IV SCH (09:31)
--- NOTE | 2023-12-24 10:08 | P.PN ---
Subjective Patient is seen in follow-up for acute kidney injury. Patient underwent exploratory laparotomy with small bowel obstruction NG tube replacement Sep tem2023. Remains off Levophed. Nonoliguric. Started on hemodialysis November 29, 2023. Last dialysis December 18, 2023. Status post tracheostomy December 10, 2023. Renal function improving. Tube feeds currently held. Sodium level 147. Vital signs stable. General: Resting in bed. HEENT: Tracheostomy noted. LUNGS: Scattered rhonchi. HEART: Regular rate and rhythm. ABDOMEN: No drainage. EXTREMITITES: Trace edema. Objective - Vital Signs Vital signs: Vital Signs Temp 98.9 F 12/24/23 04:00 Pulse 70 12/24/23 08:12 Resp 24 12/24/23 07:00 BP 91/58 12/24/23 07:00 Pulse Ox 99 12/24/23 07:00 FiO2 30 12/24/23 08:01 Intake & Output 12/23/23 12/24/23 12/24/23 18:59 06:59 18:59 Intake Total 1100 1968.831 86.169 Output Total 1025 1025 Balance 75 943.831 86.169 Weight 96.1 kg 96.5 kg Intake: IV 1000 1435 0.9 KVO 35 Dextrose 5% in Water 1, 1000 1300 000 ml @ 100 mls/hr IV . Q10H [facility] Rx#:[id number] Piperacillin-Tazobactam 3 100 .375 gm In Sodium Chloride 0.9% 100 ml @ 25 mls/hr IVPB Q8HR [facility] Rx# :[id number] Intake, IV Titration 100 13.831 86.169 Amount Dexmedetomidine/0.9% NaCl 100 13.831 86.169 (Pmx) 400 mcg In Empty Bag 1 bag @ 0.2 MCG/KG/HR 4.925 mls/hr IV .[id number] NIRMAL Rx#:[id number] Tube Feeding 10 Blood Product 0 310 Rc As-1 Unit 0 310 [id number] Other 200 Output: Drainage 80 Right Abdomen 80 Urine 945 1025 Other: Voiding Method Indwelling Catheter Indwelling Catheter Indwelling Catheter ABP, PAP, CO, CI - Last Documented Arterial Blood Pressure 139/59 - Labs CBC & Chem 7: 12/24/23 05:42 12/24/23 05:42 Labs: Abnormal Lab Results - Last 24 Hours (Table) 12/10/23 12/23/23 12/23/23 Range/Units 05:15 11:40 16:45 WBC (3.8-10.6) k/uL RBC (4.30-5.90) m/uL Hgb (13.0-17.5) gm/dL Hct (39.0-53.0) % RDW (11.5-15.5) % Plt Count (150-450) k/uL Neutrophils # (1.3-7.7) k/uL ABG pCO2 (35-45) mmHg ABG pO2 (83-108) mmHg Hemoglobin (13.0-17.5) gm/dL Sodium 149 H (137-145) mmol/L Chloride (98-107) mmol/L Carbon Dioxide (22-30) mmol/L BUN (9-20) mg/dL Creatinine (0.66-1.25) mg/dL POC Glucose (mg/dL) 180 H (70-110) mg/dL Calcium (8.4-10.2) mg/dL Crossmatch See Detail 12/23/23 12/23/23 12/23/23 Range/Units 16:48 17:15 17:55 WBC (3.8-10.6) k/uL RBC 2.20 L (4.30-5.90) m/uL Hgb 6.2 L* (13.0-17.5) gm/dL Hct 19.8 L* (39.0-53.0) % RDW 18.9 H (11.5-15.5) % Plt Count (150-450) k/uL Neutrophils # (1.3-7.7) k/uL ABG pCO2 (35-45) mmHg ABG pO2 (83-108) mmHg Hemoglobin (13.0-17.5) gm/dL Sodium (137-145) mmol/L Chloride (98-107) mmol/L Carbon Dioxide (22-30) mmol/L BUN (9-20) mg/dL Creatinine (0.66-1.25) mg/dL POC Glucose (mg/dL) 171 H (70-110) mg/dL Calcium (8.4-10.2) mg/dL Crossmatch See Detail 12/24/23 12/24/23 12/24/23 Range/Units 00:08 00:49 01:01 WBC 10.7 H (3.8-10.6) k/uL RBC 2.56 L (4.30-5.90) m/uL Hgb 7.4 L (13.0-17.5) gm/dL Hct 23.8 L (39.0-53.0) % RDW 18.4 H (11.5-15.5) % Plt Count (150-450) k/uL Neutrophils # (1.3-7.7) k/uL ABG pCO2 (35-45) mmHg ABG pO2 (83-108) mmHg Hemoglobin (13.0-17.5) gm/dL Sodium (137-145) mmol/L Chloride (98-107) mmol/L Carbon Dioxide (22-30) mmol/L BUN (9-20) mg/dL Creatinine (0.66-1.25) mg/dL POC Glucose (mg/dL) 57 L 54 L (70-110) mg/dL Calcium (8.4-10.2) mg/dL Crossmatch 12/24/23 12/24/23 12/24/23 Range/Units 05:29 05:42 05:42 WBC (3.8-10.6) k/uL RBC 2.62 L (4.30-5.90) m/uL Hgb 7.8 L (13.0-17.5) gm/dL Hct 24.9 L (39.0-53.0) % RDW 18.3 H (11.5-15.5) % Plt Count 137 L (150-450) k/uL Neutrophils # 8.1 H (1.3-7.7) k/uL ABG pCO2 32 L (35-45) mmHg ABG pO2 81 L (83-108) mmHg Hemoglobin 7.2 L (13.0-17.5) gm/dL Sodium 147 H (137-145) mmol/L Chloride 122 H (98-107) mmol/L Carbon Dioxide 19 L (22-30) mmol/L BUN 74 H (9-20) mg/dL Creatinine 2.08 H (0.66-1.25) mg/dL POC Glucose (mg/dL) (70-110) mg/dL Calcium 7.2 L (8.4-10.2) mg/dL Crossmatch Assessment and Plan Plan: Assessment: 1. Acute kidney injury secondary to ATN secondary to septic shock. Creatinine 0.86 on admission and up to 5.38 dated November 29, 2023. Urine output improved, now nonoliguric. UA fairly benign. No hydronephrosis noted on imaging. Started on hemodialysis November 29, 2023 due to volume overload. Patient initially had a right femoral catheter placed which subsequently became occluded and a left tunneled femoral catheter was placed December 06, 2023. Renal function improving with creatinine 2.08 today. 2. Perforated small bowel status post exploratory laparotomy with abdominal washout, small bowel resection and J-tube replacement November 25, 2023. 3. A-fib with RVR. s/p amiodarone drip. Also received digoxin this admission. 4. Recently diagnosed gastric B-cell lymphoma. 5. Septic shock. Likely abdominal source. On IV antibiotics. Off vasopressors now. 6. Hypocalcemia secondary to acute kidney injury. Replaced. Improved. 7. Metabolic acidosis secondary to acute kidney injury. Stable. Bicarb little low as compensatory for underlying respiratory alkalosis. 8. Volume overload. Improved with diuresis and ultrafiltration. 9. Status post tracheostomy December 10, 2023. 10. Anemia. Component of chronic illness and acute blood loss. Received blood transfusion and DDAVP this admission. On Aranesp. 11. Respiratory alkalosis. 12. Hypernatremia from lack of oral water intake. Better. Plan: Continue to hold hemodialysis. Last dialysis December 18, 2023. Increase D5W to 125 cc an hour. Repeat sodium level this evening. Avoid nephrotoxins. Preserved EF noted on echocardiogram. Phosphorus level 4.7 dated December 18, 2023. Continue to monitor for renal recovery. Case discussed with present at bedside. DC dialysis catheter later this week if renal function continues to improve.
[2023-12-24 11:35] LABS: Glucose,Whole Blood 123 mg/dL (70-110)
--- NOTE | 2023-12-24 12:53 | P.PN ---
Subjective Progress Note Date: 12/24/23 Principal diagnosis: Acute hypoxic respiratory failure requiring intubation mechanical ventilation secondary to aspiration. This is a 73-year-old white male with history of chronic abdominal pain for the last 8 months has been treated with Protonix 40 mg daily for the last 3 months with no improvement. Patient had a 22 pound weight loss in the last [address] of the abdomen and pelvis 3 weeks ago showed thickening of the antral wall with pathological adenopathy posterior to the stomach suspicious of neoplasm. Today the patient underwent elective upper endoscopy to evaluate further, patient received IV sedation by anesthesia endoscope was inserted into the mouth, esop hagus was intubated without any difficulty there was evidence of large amount of liquid and solid food noted in the stomach suggestive of gastric outlet obstruction. Scope could not be advanced through the pylorus, however in the prepyloric area there was a large superficial ulceration identified with multiple biopsies were done from this area. The body cardia and fundus could not adequately visualize because of large amount of retained food in the stomach. Scope was withdrawn back to the stomach and upon careful examination the mucosa of the antrum body and cardia as well as the fundus appeared normal. Procedure was being performed and biopsies were done patient threw up and subsequently became hypoxic there was clearly evidence of witnessed aspiration anesthesia intubated the patient, procedure was terminated, and the patient was transferred to the ICU, this consult was initiated. Patient is now on assist- control rate of 20 tidal volume 500 FiO2 70% PEEP of 10 ABG is pending, earlier ABG showed profound hypoxia patient is on propofol at 50 mcg/kg/min, next ABG is pending. Chest x-ray showed chronic changes without evidence of acute pulmonary disease. 12/20/2023, the patient is being seen for a follow-up. More alert and awake compared to yesterday. He is able to move his fingers and toes on today's evaluation. Following commands. Nevertheless, his J tube has been clogged and was unable to utilize the tube that has been some leaks around the tube. No abdominal distention. No nausea or emesis. Hemodynamically stable. Will undergo hemodialysis today. He remains on pressure control mode of mechanical ventilation at rate of 16, pressure of 10, +5 PEEP with an FiO2 of 30%. Chest x-ray from today is essentially unchanged with a stable cavity in his right uppe r lobe. White cell count of 15.7, hemoglobin 7.2, platelet count is 203, blood gas showed a pH of 7.49 with a pCO2 of 33 and pO2 of 73. BUN is 88 with a creatinine 1.89 and sodium is at 141 with a potassium level of 4.1. He is producing adequate amount of urine output. Fluid balance has been -900 cc over the past 24 hours. Normotensive. Remains on a combination of Zosyn and daptomycin. Remains on Levemir insulin 24 units daily. This is currently on hold as the patient has not been able to obtain enteral feeding. Wound VAC still in place. 12/21/2023, the patient remains on the mechanical ventilator. Overnight, the patient experienced discomfort in his abdomen and he was restless. Based on that, the patient was placed on a higher dose of Precedex which is currently running at 0.6 mcg/kg/h. The patient was also asynchronous with the mechanical ventilator and based on that, the patient was switched to an AC mode and currently is at a rate of 16, tidal volume of 400, FiO2 of 30% with a PEEP of 5. The patient is adequately sedated for now. Chest x-ray remains unchanged. Tra cheostomy tube in place and the patient is having increased amount of respiratory secretions. J tube needs to be replaced today and this will be done by his general surgery as the tube remains clogged. Urine output is low order of 30 cc an hour. Afebrile. Remains on Zosyn and daptomycin. White cell count is 16.9, hemoglobin 7.4 and a platelet count of 280. Blood gas from today showed a pH of 7.46 with a pCO2 of 36 and pO2 of 82. Sodium levels of 144, BUN is 19 with a creatinine of 2.2 and a serum bicarb is at 23. The abdominal wound remains unchanged. RAYA drain is serosanguineous. 12/22/2023, patient remains on Precedex at 0.4 mcg/kg/min. Arousable. Communicates. Profoundly weak. Remains on the mechanical ventilator with a right lung abscess. SIMV mode mode rate of 16, tidal volume of 400, FiO2 30% with a PEEP of 5, with a pressure support of 8. Blood gas showed a pH of 7.46 with a pCO2 of 32 and a pO2 of 82. Chest x-ray remains unchanged with a right upper lobe cavitating lesion/opacity and a suspected lung abscess. This is rated Pseudomonas and the patient remains on IV Zosyn. He remains on daptomycin. Urine output is in order of 50 cc an hour.. The J-tube was unplugged yesterday. Nevertheless, the tube itself is malfunctioning and there is drainage around the tube requiring dressing changes the dressings being soakedConstantly. The patient's white cell count is 12.3 with a hemoglobin 7.7. Sodium is at 149, BUN 91 with a creatinine of 2.3. Bicarb is at 20. Undergoing hemodialysis periodically. Last hemodialysis was on 12/21/2023. Currently NPO. Abdominal wound is clean and the patient has a wound VAC in place. RAYA drain output is serosanguineous. Patient was seen today on 12/23/2023, remains in the ICU, intubated and mechanically ventilated. Patient is on IMV with pressure support/IMV 16, pressure support of 8, tidal volume 400, PEEP of 5. Patient seems to be doing well with that kind of mode of mechanical ventilation, ABG showed a pO2 of 76 pCO2 28 pH of 7.50. I changed his rate from 16-8 kept him otherwise on the same ventilator settings. Plan to gradually go down on the IMV rate until we can get him on pressure support of 8 and CPAP. Patient is requiring Precedex at 0.4 mcg/kg/h, he is on D5W at 50 cc/h. Remains on antibiotics in the form of daptomycin and Zosyn, chest x-ray continues to show bilateral airspace disease and right upper lobe lung abscess. Continues to have a bit of a leak from his J-tube being addressed by surgery has a wound VAC, and he had a RAYA drain. Mentation arce the patient is a bit more appropriate, opens his eyes, follows very simple instructions, seems to comprehend. Patient has a left brachial PICC line, he also has a left groin hemodialysis catheter. WBC count is 10.1 hemoglobin is 7 sodium is 149 potassium 4 chloride is 121 BUN is 86 creatinine 2.31. Blood sugar is 173. Remains on enteral feeding via J-tube, a bit of a leak is noted, and surgery is to address this. Sputum cultures have grown Klebsiella and Pseudomonas and remains on proper antibiotics Patient was seen and examined today on 12/24/2023, patient remains in the ICU, and mechanically ventilated. On IMV mode of 8 pressure support of 8 tidal volume 400 FiO2 30% and PEEP of 5 ABG showed a pO2 of 81 pCO2 32 pH of 7.45. Patient remains on daptomycin and Zosyn, remains on Precedex at 0.4 mcg/kg/h intermittently receiving Dilaudid for pain. Feeding arce is presently on hold, patient had a leak around the jejunostomy tube, surgery is recommending a trickle feed or TPN if could not use the J-tube. Patient is arousable follows simple instructions, and today I had a chance to get rid of the IMV mode, and I am recommending a pressure support of 8 and CPAP. For the last few hours the patient has been tolerating this mode of mechanical ventilation, however he is not quite ready to go to [facility] at this point. Chest x-ray continues to show significant opacity in the right upper lobe and airspace disease in the right lower lobe. Previously patient had a CT of the chest showing right upper lobe abscess. Again he remains on Zosyn and daptomycin.Labs today showed WBC count of 10.6 hemoglobin 7.8 sodium is 147, patient is now on D5W at 100 cc an hour his bicarb is 19 BUN 74 creatinine 2.08, gradually improving, his last hemodialysis was on the , nephrology is considering removing his dialysis catheter in the left groin and I believe that is appropriate Objective - Vital Signs Vital signs: Vital Signs Temp 97.9 F 12/24/23 12:00 Pulse 89 12/24/23 12:00 Resp 21 12/24/23 12:00 BP 89/57 12/24/23 12:00 Pulse Ox 98 12/24/23 12:00 FiO2 30 12/24/23 12:00 Intake & Output 12/23/23 12/24/23 12/24/23 18:59 06:59 18:59 Intake Total 1100 1968.831 886.169 Output Total 1025 1025 355 Balance 75 943.831 531.169 Weight 96.1 kg 96.5 kg Intake: IV 1000 1435 800 0.9 KVO 35 Dextrose 5% in Water 1, 1000 1300 100 000 ml @ 100 mls/hr IV . Q10H [facility] Rx#:[id number] Dextrose 5% in Water 1, 500 000 ml @ 125 mls/hr IV . Q8H [facility] Rx#:[id number] Piperacillin-Tazobactam 3 100 .375 gm In Sodium Chloride 0.9% 100 ml @ 25 mls/hr IVPB Q8HR [facility] Rx# :[id number] Potassium Chloride 20 meq 200 In Water For Injection 1 100ml.bag @ 50 mls/hr IVPB Q2H [facility] Rx#: [id number] Intake, IV Titration 100 13.831 86.169 Amount Dexmedetomidine/0.9% NaCl 100 13.831 86.169 (Pmx) 400 mcg In Empty Bag 1 bag @ 0.2 MCG/KG/HR 4.925 mls/hr IV .[id number] [facility] Rx#:[id number] Tube Feeding 10 Blood Product 0 310 Rc As-1 Unit 0 310 [id number] Other 200 Output: Drainage 80 80 Right Abdomen 80 80 Urine 945 1025 275 Other: Voiding Method Indwelling Catheter Indwelling Catheter Indwelling Catheter ABP, PAP, CO, CI - Last Documented Arterial Blood Pressure 139/59 - Exam General: Revealed 73-year-old white male intubated, mechanically ventilated, tracheostomy is intact. Arousable, follows simple instructions, tracheostomy seems to be intact. Skin: Skin is warm and dry and no rashes or lesions are noted. Eye: Pupils are equal, round and reactive to light, extra-ocular movements are intact; there is normal conjunctiva bilaterally. Ears, nose, mouth and throat: There are moist mucous membranes and no oral lesions. Neck: The neck is supple, there is no tenderness or JVD. Tracheostomy is intact. Cardiovascular: There is a regular rate and rhythm. No murmur, rub or gallop is appreciated. Respiratory: Crackles at the bases specially at the right base no rhonchi no wheezes Gastrointestinal: no rebound, no guarding, no bowel sounds, no significant leak noted from the tubes in the abdomen. Continues to have a J-tube in place, continues to have a RAYA drain in place, and a wound VAC in place Musculoskeletal: No deformities and no limitation range of motion other the patient seems to be generally weak. 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 Neurological: Arousable, opens eyes, follows simple instructions Extremities: Trace of bipedal edema - Labs CBC & Chem 7: 12/24/23 05:42 12/24/23 05:42 Labs: Abnormal Lab Results - Last 24 Hours (Table) 12/10/23 12/23/23 12/23/23 Range/Units 05:15 16:45 16:48 WBC (3.8-10.6) k/uL RBC 2.20 L (4.30-5.90) m/uL Hgb 6.2 L* (13.0-17.5) gm/dL Hct 19.8 L* (39.0-53.0) % RDW 18.9 H (11.5-15.5) % Plt Count (150-450) k/uL Neutrophils # (1.3-7.7) k/uL ABG pCO2 (35-45) mmHg ABG pO2 (83-108) mmHg Hemoglobin (13.0-17.5) gm/dL Sodium 149 H (137-145) mmol/L Chloride (98-107) mmol/L Carbon Dioxide (22-30) mmol/L BUN (9-20) mg/dL Creatinine (0.66-1.25) mg/dL POC Glucose (mg/dL) (70-110) mg/dL Calcium (8.4-10.2) mg/dL Crossmatch See Detail 12/23/23 12/23/23 12/24/23 Range/Units 17:15 17:55 00:08 WBC 10.7 H (3.8-10.6) k/uL RBC 2.56 L (4.30-5.90) m/uL Hgb 7.4 L (13.0-17.5) gm/dL Hct 23.8 L (39.0-53.0) % RDW 18.4 H (11.5-15.5) % Plt Count (150-450) k/uL Neutrophils # (1.3-7.7) k/uL ABG pCO2 (35-45) mmHg ABG pO2 (83-108) mmHg Hemoglobin (13.0-17.5) gm/dL Sodium (137-145) mmol/L Chloride (98-107) mmol/L Carbon Dioxide (22-30) mmol/L BUN (9-20) mg/dL Creatinine (0.66-1.25) mg/dL POC Glucose (mg/dL) 171 H (70-110) mg/dL Calcium (8.4-10.2) mg/dL Crossmatch See Detail 12/24/23 12/24/23 12/24/23 Range/Units 00:49 01:01 05:29 WBC (3.8-10.6) k/uL RBC (4.30-5.90) m/uL Hgb (13.0-17.5) gm/dL Hct (39.0-53.0) % RDW (11.5-15.5) % Plt Count (150-450) k/uL Neutrophils # (1.3-7.7) k/uL ABG pCO2 32 L (35-45) mmHg ABG pO2 81 L (83-108) mmHg Hemoglobin 7.2 L (13.0-17.5) gm/dL Sodium (137-145) mmol/L Chloride (98-107) mmol/L Carbon Dioxide (22-30) mmol/L BUN (9-20) mg/dL Creatinine (0.66-1.25) mg/dL POC Glucose (mg/dL) 57 L 54 L (70-110) mg/dL Calcium (8.4-10.2) mg/dL Crossmatch 12/24/23 12/24/23 12/24/23 Range/Units 05:42 05:42 11:33 WBC (3.8-10.6) k/uL RBC 2.62 L (4.30-5.90) m/uL Hgb 7.8 L (13.0-17.5) gm/dL Hct 24.9 L (39.0-53.0) % RDW 18.3 H (11.5-15.5) % Plt Count 137 L (150-450) k/uL Neutrophils # 8.1 H (1.3-7.7) k/uL ABG pCO2 (35-45) mmHg ABG pO2 (83-108) mmHg Hemoglobin (13.0-17.5) gm/dL Sodium 147 H (137-145) mmol/L Chloride 122 H (98-107) mmol/L Carbon Dioxide 19 L (22-30) mmol/L BUN 74 H (9-20) mg/dL Creatinine 2.08 H (0.66-1.25) mg/dL POC Glucose (mg/dL) 123 H (70-110) mg/dL Calcium 7.2 L (8.4-10.2) mg/dL Crossmatch Assessment and Plan Assessment: Impression: Acute hypoxic respiratory failure requiring intubation mechanical ventilation secondary to aspiration. Status post tracheostomy on 12/10/2023 patient continues to have a cavitary lesion/lung abscess involving the right upper lobe. Status post J-tube placement 11/16/2023, multiple complications since then related to the J-tube placement requiring multiple surgeries. Ongoing leak around the J-tube, surgery is addressing not planning any surgical intervention at this point, and for feeding recommending either trickle feeds or TPN both. Acute peritonitis secondary to above, secondary to small bowel perforation with abdominal contamination Septic shock secondary to above Paroxysmal atrial fibrillation Acute kidney injury requiring hemodialysis secondary to sepsis and septic shock, last hemodialysis was on the , apparently patient is not requiring hemodialysis since then and nephrology planning to discontinue his dialysis cath eter from the left groin Weight loss secondary to non-Hodgkin's lymphoma Acute aspiration pneumonia/right upper lobe lung abscess Acute aspiration during upper endoscopy most likely secondary to gastric outlet obstruction secondary to non-Hodgkin's lymphoma based on the pathology from stomach biopsies 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 Today the patient will go on pressure support of 8 and CPAP not quite ready to be extubated. Critical illness polyneuropathy Metabolic encephalopathy Malfunctioning of the J-tube Recommendation: Continue ventilatory support, patient will be on pressure support and CPAP Continue Precedex as the patient gets extremely agitated off Precedex Nutritional support/trickle feeding or TPN Cannot use J-tube because of ongoing leak, being addressed by surgery Continue antibiotics including daptomycin and Zosyn No further dialysis is necessary at this point considering the patient has not had dialysis since the and his urine output seems to be excellent, creatinine is steadily improving Continue to avoid nephrotoxic drugs Continue GI and DVT prophylaxis Discussed with the his condition again today Remains critically ill General surgery to continue to address issues related to J-tube Nephrology is considering removal of dialysis catheter since he does not need any further dialysis. Care time is over 30 minutes Will continue to follow Time with Patient: Greater than 30
--- NOTE | 2023-12-24 13:20 | P.PN ---
Subjective Progress Note Date: 12/23/23 Principal diagnosis: Reason for follow-up is pneumonia and bacteremia Patient is 73-year-old with male initial presentation to the hospital on 11/11/2021 for after the patient did have aspiration while undergoing elective endoscopy, diagnosed with a non-Hodgkin of, subsequently did have explained laparotomy for perforated small bowel abdominal washout and feeding jejunostomy tube patient did require dialysis catheter placement for dialysis during this hospital stay and tracheostomy for respiratory failure, infectious was consulted for fever. On today's evaluation that is 12/23/2023, patient has been afebrile for the last 3 days, the patient is breathing comfortably and is currently on intubated through the trach is hemodynamically stable still having issues with the jejunostomy tube no diarrhea has been reported. The patient white normalized to 9.0 also a drop in hemoglobin to 6.2, creatinine is 2.31 Objective - Vital Signs Vital signs: Vital Signs Temp 98.0 F 12/23/23 12:00 Pulse 90 12/23/23 12:00 Resp 15 12/23/23 12:00 BP 103/67 12/23/23 12:00 Pulse Ox 99 12/23/23 12:00 FiO2 30 12/23/23 12:00 Intake & Output 12/22/23 12/23/23 12/23/23 18:59 06:59 18:59 Intake Total 657.515 775.986 300 Output Total 545 665 110 Balance 112.515 110.986 190 Weight 96.1 kg Intake: IV 560 600 300 0.9 KVO 10 Dextrose 5% in Water 1, 50 600 300 000 ml @ 100 mls/hr IV . Q10H [facility] Rx#:[id number] Piperacillin-Tazobactam 3 100 .375 gm In Sodium Chloride 0.9% 100 ml @ 25 mls/hr IVPB Q12HR [facility] Rx #:[id number] Sodium Chloride 0.45% 1, 400 000 ml @ 50 mls/hr IV . Q20H [facility] Rx#:[id number] Intake, IV Titration 97.515 175.986 Amount Dexmedetomidine/0.9% NaCl 97.515 175.986 (Pmx) 400 mcg In Empty Bag 1 bag @ 0.2 MCG/KG/HR 4.925 mls/hr IV .[id number] [facility] Rx#:[id number] Output: Drainage 120 60 Right Abdomen 120 60 Urine 425 605 110 Other: Voiding Method Indwelling Catheter Indwelling Catheter Indwelling Catheter ABP, PAP, CO, CI - Last Documented Arterial Blood Pressure 139/59 - Exam GENERAL DESCRIPTION: An elderly male lying in bed in no distress RESPIRATORY SYSTEM: Unlabored breathing , decreased breath sounds at bases HEART: S1 S2 regular rate and rhythm , ABDOMEN: Soft , no tenderness EXTREMITIES: No edema feet - Labs CBC & Chem 7: 12/24/23 05:42 12/24/23 05:42 Labs: Abnormal Lab Results - Last 24 Hours (Table) 12/22/23 12/22/23 12/22/23 Range/Units 13:25 14:09 18:50 RBC (4.30-5.90) m/uL Hgb (13.0-17.5) gm/dL Hct (39.0-53.0) % RDW (11.5-15.5) % ABG pH (7.35-7.45) ABG pCO2 (35-45) mmHg ABG pO2 (83-108) mmHg Hemoglobin (13.0-17.5) gm/dL Sodium 149 H (137-145) mmol/L Chloride (98-107) mmol/L Carbon Dioxide (22-30) mmol/L BUN (9-20) mg/dL Creatinine (0.66-1.25) mg/dL Glucose (74-99) mg/dL POC Glucose (mg/dL) 142 H 139 H (70-110) mg/dL Calcium (8.4-10.2) mg/dL 12/23/23 12/23/23 12/23/23 Range/Units 05:21 05:21 05:28 RBC 2.47 L (4.30-5.90) m/uL Hgb 7.0 L (13.0-17.5) gm/dL Hct 22.2 L (39.0-53.0) % RDW 19.0 H (11.5-15.5) % ABG pH 7.50 H (7.35-7.45) ABG pCO2 28 L (35-45) mmHg ABG pO2 76 L (83-108) mmHg Hemoglobin 6.1 L* (13.0-17.5) gm/dL Sodium 149 H (137-145) mmol/L Chloride 121 H (98-107) mmol/L Carbon Dioxide 21 L (22-30) mmol/L BUN 86 H (9-20) mg/dL Creatinine 2.31 H (0.66-1.25) mg/dL Glucose 173 H (74-99) mg/dL POC Glucose (mg/dL) (70-110) mg/dL Calcium 7.1 L (8.4-10.2) mg/dL 12/23/23 12/23/23 Range/Units 06:05 11:40 RBC (4.30-5.90) m/uL Hgb (13.0-17.5) gm/dL Hct (39.0-53.0) % RDW (11.5-15.5) % ABG pH (7.35-7.45) ABG pCO2 (35-45) mmHg ABG pO2 (83-108) mmHg Hemoglobin (13.0-17.5) gm/dL Sodium (137-145) mmol/L Chloride (98-107) mmol/L Carbon Dioxide (22-30) mmol/L BUN (9-20) mg/dL Creatinine (0.66-1.25) mg/dL Glucose (74-99) mg/dL POC Glucose (mg/dL) 171 H 180 H (70-110) mg/dL Calcium (8.4-10.2) mg/dL Microbiology - Last 24 Hours (Table) 12/19/23 16:44 Blood Culture - Preliminary Blood Assessment and Plan (1) Sepsis Current Visit: Yes Status: Acute Code(s): A41.9 - SEPSIS, UNSPECIFIED ORGANISM SNOMED Code(s): 39453920 (2) Pneumonia Current Visit: Yes Status: Acute Code(s): J18.9 - PNEUMONIA, UNSPECIFIED ORGANISM SNOMED Code(s): 876670867 (3) Bacteremia Current Visit: Yes Status: Acute Code(s): R78.81 - BACTEREMIA SNOMED Code(s): 6057758 Plan: 1patient with sepsis in this patient has been in the hospital for 34 days before this initial consultation with initial admission to the hospital after elective EGD with the patient was noted to have gastric outlet obstruction and did aspirated subsequently the patient did have laparotomy for perforated small bowel status post resection and jejunostomy tube placement noted to have evidence of a midline abdominal wound dehiscence did have a apical cavitary lesion on the right side with his sputum showing Pseudomonas and Klebsiella, the patient also have positive blood culture with coagulase-negative staph patient did have a PICC line as well as dialysis catheter etiology of his sepsis is likely multifactorial, with a likely source pneumonia and possible line related 2-patient did have resolution of his fever and the patient white count has normalized, we will continue daptomycin and Zosyn and no medical monitor clinical course closely Dictation was produced using [employer] dictation software. please excuse any grammatical, word or spelling errors. Time with Patient: Less than 30
--- NOTE | 2023-12-24 13:21 | P.PN ---
Subjective Progress Note Date: 12/24/23 Principal diagnosis: Reason for follow-up is pneumonia and bacteremia Patient is 73-year-old with male initial presentation to the hospital on 11/11/2021 for after the patient did have aspiration while undergoing elective endoscopy, diagnosed with a non-Hodgkin of, subsequently did have explained laparotomy for perforated small bowel abdominal washout and feeding jejunostomy tube patient did require dialysis catheter placement for dialysis during this hospital stay and tracheostomy for respiratory failure, infectious was consulted for fever. On today's evaluation that is 12/24/2023, patient did have low-grade fever 100 F at midnight, the patient has been afebrile this morning, patient is on the vent through the trach breathing comfortably no significant purulent secretion through the ET, FiO2 is currently stable at 30% still issues with the frequent G-tube no diarrhea reported. The patient white count is 10.6, creatinine is 2.08 Objective - Vital Signs Vital signs: Vital Signs Temp 97.9 F 12/24/23 12:00 Pulse 89 12/24/23 12:00 Resp 21 12/24/23 12:00 BP 89/57 12/24/23 12:00 Pulse Ox 98 12/24/23 12:00 FiO2 30 12/24/23 12:00 Intake & Output 12/23/23 12/24/23 12/24/23 18:59 06:59 18:59 Intake Total 1100 1968.831 886.169 Output Total 1025 1025 355 Balance 75 943.831 531.169 Weight 96.1 kg 96.5 kg Intake: IV 1000 1435 800 0.9 KVO 35 Dextrose 5% in Water 1, 1000 1300 100 000 ml @ 100 mls/hr IV . Q10H [facility] Rx#:[id number] Dextrose 5% in Water 1, 500 000 ml @ 125 mls/hr IV . Q8H [facility] Rx#:[id number] Piperacillin-Tazobactam 3 100 .375 gm In Sodium Chloride 0.9% 100 ml @ 25 mls/hr IVPB Q8HR [facility] Rx# :[id number] Potassium Chloride 20 meq 200 In Water For Injection 1 100ml.bag @ 50 mls/hr IVPB Q2H [facility] Rx#: [id number] Intake, IV Titration 100 13.831 86.169 Amount Dexmedetomidine/0.9% NaCl 100 13.831 86.169 (Pmx) 400 mcg In Empty Bag 1 bag @ 0.2 MCG/KG/HR 4.925 mls/hr IV .[id number] [facility] Rx#:[id number] Tube Feeding 10 Blood Product 0 310 Rc As-1 Unit 0 310 [id number] Other 200 Output: Drainage 80 80 Right Abdomen 80 80 Urine 945 1025 275 Other: Voiding Method Indwelling Catheter Indwelling Catheter Indwelling Catheter ABP, PAP, CO, CI - Last Documented Arterial Blood Pressure 139/59 - Exam GENERAL DESCRIPTION: An elderly male lying in bed in no distress RESPIRATORY SYSTEM: Unlabored breathing , decreased breath sounds at bases HEART: S1 S2 regular rate and rhythm , ABDOMEN: Soft , no tenderness EXTREMITIES: No edema feet - Labs CBC & Chem 7: 12/24/23 05:42 12/24/23 05:42 Labs: Abnormal Lab Results - Last 24 Hours (Table) 12/10/23 12/23/23 12/23/23 Range/Units 05:15 16:45 16:48 WBC (3.8-10.6) k/uL RBC 2.20 L (4.30-5.90) m/uL Hgb 6.2 L* (13.0-17.5) gm/dL Hct 19.8 L* (39.0-53.0) % RDW 18.9 H (11.5-15.5) % Plt Count (150-450) k/uL Neutrophils # (1.3-7.7) k/uL ABG pCO2 (35-45) mmHg ABG pO2 (83-108) mmHg Hemoglobin (13.0-17.5) gm/dL Sodium 149 H (137-145) mmol/L Chloride (98-107) mmol/L Carbon Dioxide (22-30) mmol/L BUN (9-20) mg/dL Creatinine (0.66-1.25) mg/dL POC Glucose (mg/dL) (70-110) mg/dL Calcium (8.4-10.2) mg/dL Crossmatch See Detail 12/23/23 12/23/23 12/24/23 Range/Units 17:15 17:55 00:08 WBC 10.7 H (3.8-10.6) k/uL RBC 2.56 L (4.30-5.90) m/uL Hgb 7.4 L (13.0-17.5) gm/dL Hct 23.8 L (39.0-53.0) % RDW 18.4 H (11.5-15.5) % Plt Count (150-450) k/uL Neutrophils # (1.3-7.7) k/uL ABG pCO2 (35-45) mmHg ABG pO2 (83-108) mmHg Hemoglobin (13.0-17.5) gm/dL Sodium (137-145) mmol/L Chloride (98-107) mmol/L Carbon Dioxide (22-30) mmol/L BUN (9-20) mg/dL Creatinine (0.66-1.25) mg/dL POC Glucose (mg/dL) 171 H (70-110) mg/dL Calcium (8.4-10.2) mg/dL Crossmatch See Detail 12/24/23 12/24/23 12/24/23 Range/Units 00:49 01:01 05:29 WBC (3.8-10.6) k/uL RBC (4.30-5.90) m/uL Hgb (13.0-17.5) gm/dL Hct (39.0-53.0) % RDW (11.5-15.5) % Plt Count (150-450) k/uL Neutrophils # (1.3-7.7) k/uL ABG pCO2 32 L (35-45) mmHg ABG pO2 81 L (83-108) mmHg Hemoglobin 7.2 L (13.0-17.5) gm/dL Sodium (137-145) mmol/L Chloride (98-107) mmol/L Carbon Dioxide (22-30) mmol/L BUN (9-20) mg/dL Creatinine (0.66-1.25) mg/dL POC Glucose (mg/dL) 57 L 54 L (70-110) mg/dL Calcium (8.4-10.2) mg/dL Crossmatch 12/24/23 12/24/23 12/24/23 Range/Units 05:42 05:42 11:33 WBC (3.8-10.6) k/uL RBC 2.62 L (4.30-5.90) m/uL Hgb 7.8 L (13.0-17.5) gm/dL Hct 24.9 L (39.0-53.0) % RDW 18.3 H (11.5-15.5) % Plt Count 137 L (150-450) k/uL Neutrophils # 8.1 H (1.3-7.7) k/uL ABG pCO2 (35-45) mmHg ABG pO2 (83-108) mmHg Hemoglobin (13.0-17.5) gm/dL Sodium 147 H (137-145) mmol/L Chloride 122 H (98-107) mmol/L Carbon Dioxide 19 L (22-30) mmol/L BUN 74 H (9-20) mg/dL Creatinine 2.08 H (0.66-1.25) mg/dL POC Glucose (mg/dL) 123 H (70-110) mg/dL Calcium 7.2 L (8.4-10.2) mg/dL Crossmatch Assessment and Plan (1) Sepsis Current Visit: Yes Status: Acute Code(s): A41.9 - SEPSIS, UNSPECIFIED ORGANISM SNOMED Code(s): 67104300 (2) Pneumonia Current Visit: Yes Status: Acute Code(s): J18.9 - PNEUMONIA, UNSPECIFIED ORGANISM SNOMED Code(s): 939955819 (3) Bacteremia Current Visit: Yes Status: Acute Code(s): R78.81 - BACTEREMIA SNOMED Code(s): 4943147 Plan: 1patient with sepsis in this patient has been in the hospital for 34 days before this initial consultation with initial admission to the hospital after elective EGD with the patient was noted to have gastric outlet obstruction and did aspirated subsequently the patient did have laparotomy for perforated small bowel status post resection and jejunostomy tube placement noted to have evidence of a midline abdominal wound dehiscence did have a apical cavitary lesion on the right side with his sputum showing Pseudomonas and Klebsiella, the patient also have positive blood culture with coagulase-negative staph patient did have a PICC line as well as dialysis catheter etiology of his sepsis is likely multifactorial, with a likely source pneumonia and possible line related 2-patient did have low-grade fever at midnight however the patient white count has normalized, 3-we will continue daptomycin and Zosyn, consider discontinuation of the dialysis catheter if no plan for any further dialysis to decrease risk of line related sepsis Family at the bedside questions answered Dictation was produced using [employer] software. please excuse any grammatical, word or spelling errors. Time with Patient: Less than 30
--- NOTE | 2023-12-24 14:36 | P.PN ---
Subjective Progress Note Date: 12/24/23 Patient was under the care by Dr. Hernández, so please refer to his notes for further details. I seen the patient last according to the mentation arce and strength arce he is doing somewhat better. According to the daughters at bedside he is squeezing on the left hand. And according to the he is able to move his feet pressing down. No new neurological issues. Objective - Vital Signs Vital signs: Vital Signs Temp 97.9 F 12/24/23 12:00 Pulse 81 12/24/23 14:00 Resp 18 12/24/23 14:00 BP 91/63 12/24/23 14:00 Pulse Ox 99 12/24/23 14:00 FiO2 30 12/24/23 14:00 Intake & Output 12/23/23 12/24/23 12/24/23 18:59 06:59 18:59 Intake Total 1100 6882.137 7281.169 Output Total 1025 1025 465 Balance 75 943.831 671.169 Weight 96.1 kg 96.5 kg Intake: IV 1000 1435 1050 0.9 KVO 35 Dextrose 5% in Water 1, 1000 1300 100 000 ml @ 100 mls/hr IV . Q10H [facility] Rx#:[id number] Dextrose 5% in Water 1, 750 000 ml @ 125 mls/hr IV . Q8H [facility] Rx#:[id number] Piperacillin-Tazobactam 3 100 .375 gm In Sodium Chloride 0.9% 100 ml @ 25 mls/hr IVPB Q8HR [facility] Rx# :[id number] Potassium Chloride 20 meq 200 In Water For Injection 1 100ml.bag @ 50 mls/hr IVPB Q2H [facility] Rx#: [id number] Intake, IV Titration 100 13.831 86.169 Amount Dexmedetomidine/0.9% NaCl 100 13.831 86.169 (Pmx) 400 mcg In Empty Bag 1 bag @ 0.2 MCG/KG/HR 4.925 mls/hr IV .[id number] [facility] Rx#:[id number] Tube Feeding 10 Blood Product 0 310 Rc As-1 Unit 0 310 [id number] Other 200 Output: Drainage 80 80 Right Abdomen 80 80 Urine 945 1025 385 Other: Voiding Method Indwelling Catheter Indwelling Catheter Indwelling Catheter ABP, PAP, CO, CI - Last Documented Arterial Blood Pressure 139/59 - Exam General: Lying in bed and is not in acute distress. Resp: Trach on vent. Neuro: Limited. Drowsy but is awakeable to voice. Open his eye and turns his head side to side. No verbalizing but is following simple commands (closing eyes, smiling and stuck his tongue out). Not verbalizing. Motor: Strength is upon lifting the right upper extremity above gravity he was able to hold it up. Otherwise rest is limited. - Labs CBC & Chem 7: 12/24/23 05:42 12/24/23 05:42 Labs: Abnormal Lab Results - Last 24 Hours (Table) 12/10/23 12/23/23 12/23/23 Range/Units 05:15 16:45 16:48 WBC (3.8-10.6) k/uL RBC 2.20 L (4.30-5.90) m/uL Hgb 6.2 L* (13.0-17.5) gm/dL Hct 19.8 L* (39.0-53.0) % RDW 18.9 H (11.5-15.5) % Plt Count (150-450) k/uL Neutrophils # (1.3-7.7) k/uL ABG pCO2 (35-45) mmHg ABG pO2 (83-108) mmHg Hemoglobin (13.0-17.5) gm/dL Sodium 149 H (137-145) mmol/L Chloride (98-107) mmol/L Carbon Dioxide (22-30) mmol/L BUN (9-20) mg/dL Creatinine (0.66-1.25) mg/dL POC Glucose (mg/dL) (70-110) mg/dL Calcium (8.4-10.2) mg/dL Crossmatch See Detail 12/23/23 12/23/23 12/24/23 Range/Units 17:15 17:55 00:08 WBC 10.7 H (3.8-10.6) k/uL RBC 2.56 L (4.30-5.90) m/uL Hgb 7.4 L (13.0-17.5) gm/dL Hct 23.8 L (39.0-53.0) % RDW 18.4 H (11.5-15.5) % Plt Count (150-450) k/uL Neutrophils # (1.3-7.7) k/uL ABG pCO2 (35-45) mmHg ABG pO2 (83-108) mmHg Hemoglobin (13.0-17.5) gm/dL Sodium (137-145) mmol/L Chloride (98-107) mmol/L Carbon Dioxide (22-30) mmol/L BUN (9-20) mg/dL Creatinine (0.66-1.25) mg/dL POC Glucose (mg/dL) 171 H (70-110) mg/dL Calcium (8.4-10.2) mg/dL Crossmatch See Detail 12/24/23 12/24/23 12/24/23 Range/Units 00:49 01:01 05:29 WBC (3.8-10.6) k/uL RBC (4.30-5.90) m/uL Hgb (13.0-17.5) gm/dL Hct (39.0-53.0) % RDW (11.5-15.5) % Plt Count (150-450) k/uL Neutrophils # (1.3-7.7) k/uL ABG pCO2 32 L (35-45) mmHg ABG pO2 81 L (83-108) mmHg Hemoglobin 7.2 L (13.0-17.5) gm/dL Sodium (137-145) mmol/L Chloride (98-107) mmol/L Carbon Dioxide (22-30) mmol/L BUN (9-20) mg/dL Creatinine (0.66-1.25) mg/dL POC Glucose (mg/dL) 57 L 54 L (70-110) mg/dL Calcium (8.4-10.2) mg/dL Crossmatch 12/24/23 12/24/23 12/24/23 Range/Units 05:42 05:42 11:33 WBC (3.8-10.6) k/uL RBC 2.62 L (4.30-5.90) m/uL Hgb 7.8 L (13.0-17.5) gm/dL Hct 24.9 L (39.0-53.0) % RDW 18.3 H (11.5-15.5) % Plt Count 137 L (150-450) k/uL Neutrophils # 8.1 H (1.3-7.7) k/uL ABG pCO2 (35-45) mmHg ABG pO2 (83-108) mmHg Hemoglobin (13.0-17.5) gm/dL Sodium 147 H (137-145) mmol/L Chloride 122 H (98-107) mmol/L Carbon Dioxide 19 L (22-30) mmol/L BUN 74 H (9-20) mg/dL Creatinine 2.08 H (0.66-1.25) mg/dL POC Glucose (mg/dL) 123 H (70-110) mg/dL Calcium 7.2 L (8.4-10.2) mg/dL Crossmatch Assessment and Plan Assessment: * Altered mental status, likely due to toxic metabolic encephalopathy, remarkably improved * Generalized weakness, 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--is mildly improving * Aspiration pneumonitis from retained gastric contents * Ventilator dependent respiratory failure, status post tracheostomy 12/10/2023 * Status post pulmonary edema * History of small bowel perforation at the site of jejunostomy tube tip with balloon * Peritonitis, secondary to above * Acute kidney injury, with hemodialysis started 12/05/2023 * Acute recurrent atrial fibrillation, currently in sinus mechanism * Septic shock, recovered * Bacteremia with coagulase-negative staph * Hypertension * Anemia * Thrombocytopenia, resolved * History of gastric B-cell lymphoma, with gastric outlet obstruction. Plan: * Stat EEG was performed on 12/08/2023: It revealed generalized slowing of severe degree. This is suggestive of generalized cerebral dysfunction as can be seen with toxic metabolic encephalopathy or related to diffuse structural brain about a day. Clinical correlation is recommended. Sporadic, periodic generalized sharp-appearing waves were seen. This may suggest underlying cortical irritability. No electrographic seizure was recorded. * Therefore, Dr. Hernández empirically started on Keppra 500 mg daily. I lowered to 250mg bid since mentation is improving. . * Repeat EEG on 12/12/2023: Is abnormal. The study is limited because of diffuse myogenic artifact. The background slowing is suggestive of severe encephalopathy. Otherwise no focal slowing, epileptiform discharges or seizure on the EEG. * CT head performed 12/07/2023 revealed no acute intracranial process. Some atrophy. I personally reviewed CT head agree with the findings. * PT and OT are consulted and patient will benefit from rehab and if possible inpatient. * Recommend outpatient EMG with NCS of uppers and lowers if still has weakness after therapy. * Patient currently on daptomycin and Zosyn. ID following. * For medical management as per critical care and other specialties on board. The plan is discussed with patient's and daughter who are at bedside. Will follow-up sporadically. Time with Patient: Less than 30
[2023-12-24 17:12] LABS: Glucose,Whole Blood 160 mg/dL (70-110)
--- NOTE | 2023-12-24 17:29 | P.PN ---
Subjective Patient seen and evaluated at bedside. Pt has j tube drainage. Not in significant pain. Objective - Vital Signs Vital signs: Vital Signs Temp 97.9 F 12/24/23 12:00 Pulse 90 12/24/23 15:17 Resp 16 12/24/23 15:00 BP 93/63 12/24/23 15:00 Pulse Ox 100 12/24/23 15:00 FiO2 30 12/24/23 15:04 Intake & Output 12/23/23 12/24/23 12/24/23 18:59 06:59 18:59 Intake Total 1100 2353.967 0081.090 Output Total 1025 1025 515 Balance 75 943.831 776.090 Weight 96.1 kg 96.5 kg Intake: IV 1000 1435 1175 0.9 KVO 35 Dextrose 5% in Water 1, 1000 1300 100 000 ml @ 100 mls/hr IV . Q10H [facility] Rx#:[id number] Dextrose 5% in Water 1, 875 000 ml @ 125 mls/hr IV . Q8H [facility] Rx#:[id number] Piperacillin-Tazobactam 3 100 .375 gm In Sodium Chloride 0.9% 100 ml @ 25 mls/hr IVPB Q8HR [facility] Rx# :[id number] Potassium Chloride 20 meq 200 In Water For Injection 1 100ml.bag @ 50 mls/hr IVPB Q2H [facility] Rx#: [id number] Intake, IV Titration 100 13.831 116.090 Amount Dexmedetomidine/0.9% NaCl 100 13.831 116.090 (Pmx) 400 mcg In Empty Bag 1 bag @ 0.2 MCG/KG/HR 4.925 mls/hr IV .[id number] [facility] Rx#:[id number] Tube Feeding 10 Blood Product 0 310 Rc As-1 Unit 0 310 [id number] Other 200 Output: Drainage 80 80 Right Abdomen 80 80 Urine 945 1025 435 Other: Voiding Method Indwelling Catheter Indwelling Catheter Indwelling Catheter ABP, PAP, CO, CI - Last Documented Arterial Blood Pressure 139/59 - Exam gen: nad cv: rrr pul: non labored on vent abd: soft, non distended, wound vac in place, j tube leaking - Labs CBC & Chem 7: 12/24/23 05:42 12/24/23 16:00 Labs: Abnormal Lab Results - Last 24 Hours (Table) 12/10/23 12/23/23 12/23/23 Range/Units 05:15 16:48 17:15 WBC (3.8-10.6) k/uL RBC (4.30-5.90) m/uL Hgb 6.2 L* (13.0-17.5) gm/dL Hct 19.8 L* (39.0-53.0) % RDW (11.5-15.5) % Plt Count (150-450) k/uL Neutrophils # (1.3-7.7) k/uL ABG pCO2 (35-45) mmHg ABG pO2 (83-108) mmHg Hemoglobin (13.0-17.5) gm/dL Sodium (137-145) mmol/L Chloride (98-107) mmol/L Carbon Dioxide (22-30) mmol/L BUN (9-20) mg/dL Creatinine (0.66-1.25) mg/dL POC Glucose (mg/dL) (70-110) mg/dL Calcium (8.4-10.2) mg/dL Crossmatch See Detail See Detail 12/23/23 12/24/23 12/24/23 Range/Units 17:55 00:08 00:49 WBC 10.7 H (3.8-10.6) k/uL RBC 2.56 L (4.30-5.90) m/uL Hgb 7.4 L (13.0-17.5) gm/dL Hct 23.8 L (39.0-53.0) % RDW 18.4 H (11.5-15.5) % Plt Count (150-450) k/uL Neutrophils # (1.3-7.7) k/uL ABG pCO2 (35-45) mmHg ABG pO2 (83-108) mmHg Hemoglobin (13.0-17.5) gm/dL Sodium (137-145) mmol/L Chloride (98-107) mmol/L Carbon Dioxide (22-30) mmol/L BUN (9-20) mg/dL Creatinine (0.66-1.25) mg/dL POC Glucose (mg/dL) 171 H 57 L (70-110) mg/dL Calcium (8.4-10.2) mg/dL Crossmatch 12/24/23 12/24/23 12/24/23 Range/Units 01:01 05:29 05:42 WBC (3.8-10.6) k/uL RBC 2.62 L (4.30-5.90) m/uL Hgb 7.8 L (13.0-17.5) gm/dL Hct 24.9 L (39.0-53.0) % RDW 18.3 H (11.5-15.5) % Plt Count 137 L (150-450) k/uL Neutrophils # 8.1 H (1.3-7.7) k/uL ABG pCO2 32 L (35-45) mmHg ABG pO2 81 L (83-108) mmHg Hemoglobin 7.2 L (13.0-17.5) gm/dL Sodium (137-145) mmol/L Chloride (98-107) mmol/L Carbon Dioxide (22-30) mmol/L BUN (9-20) mg/dL Creatinine (0.66-1.25) mg/dL POC Glucose (mg/dL) 54 L (70-110) mg/dL Calcium (8.4-10.2) mg/dL Crossmatch 12/24/23 12/24/23 12/24/23 Range/Units 05:42 11:33 17:10 WBC (3.8-10.6) k/uL RBC (4.30-5.90) m/uL Hgb (13.0-17.5) gm/dL Hct (39.0-53.0) % RDW (11.5-15.5) % Plt Count (150-450) k/uL Neutrophils # (1.3-7.7) k/uL ABG pCO2 (35-45) mmHg ABG pO2 (83-108) mmHg Hemoglobin (13.0-17.5) gm/dL Sodium 147 H (137-145) mmol/L Chloride 122 H (98-107) mmol/L Carbon Dioxide 19 L (22-30) mmol/L BUN 74 H (9-20) mg/dL Creatinine 2.08 H (0.66-1.25) mg/dL POC Glucose (mg/dL) 123 H 160 H (70-110) mg/dL Calcium 7.2 L (8.4-10.2) mg/dL Crossmatch Assessment and Plan Assessment: Patient's J-tube site continues to leak, however improved from significant leakage. I discussed case in depth with patient's daughter at bedside. At this point, there is no recommendation for further surgical intervention as patient's overall prognosis is guarded and patient will likely not tolerate the procedure well. Pt's daughter requesting transfer to a higher level of care. I do not have a problem with this. Patient's daughter is agreeable and does not want any further surgical intervention. Time with Patient: Greater than 30
[2023-12-24] MEDS: HYDROmorphone 1 MG/ML 1 ML SYRINGE IVP PRN (18:27)
[2023-12-24] MEDS: LACTATED RINGERS 1,000 ML IV ONE (19:15)
[2023-12-24] MEDS: NOREPINEPHRINE 4 MG in SODIUM CHLORIDE 0.9% 250 ML IV SCH (19:45)
--- NOTE | 2023-12-24 20:23 | P.PN ---
Progress Note - Text Progress Note Date: 12/24/23 Chief Complaint: Aspirated This is a 73-year-old patient, follows with Dr. Patricia Deal. Patient was seen this morning in the ICU. Patient's and daughter at the bedside. History obtained predominantly by the . Patient been having trouble with his stomach symptoms for close to 8 months. Patient underwent EGD by Dr. Sahara Cheng yesterday. Patient was found to have ulcerated around the antrum and obstruction to the pylorus. A lot of retained food was found. Patient aspirated. Had to be intubated and brought to the ICU. On a Levophed drip. FiO2 50 and a PEEP of 6. Patient had been losing weight lost about 25 pounds. Previously has a history of mitral valve prolapse. November 13: ICU. Patient remains on Precedex drip and propofol drip. Did not do well attempted extubation yesterday. Patient been off Levophed. NG tube to suction. Spoke to patient's and son at the bedside. Biopsy results awaited. Hemoglobin dropped to 6.9 this morning. Get a unit of blood. November 14: ICU. Up in a chair. Extubated yesterday. NG tube to suction. at the bedside. 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 Oncology was consulted. They have ordered a port. Results discussed with Dr. Sahara Cheng. General surgery was consulted for J-tube placement. Discussed with at the bedside. Patient getting IV fluids, IV Zosyn,. Patient has been on IV amiodarone for A-fib-back in sinus rhythm. Multiple PACs. Did receive unit of blood yesterday. Also IV ferric gluconate. November 15: ICU. Patient earlier today underwent jejunostomy tube placement and a port placement. Patient awake. Answering questions. NG tube to suction present. Updated patient's . Patient remains on IV amiodarone and IV Zosyn. November 16: ICU. Up in the chair. NG tube present but not to suction. Trickle feeding through the jejunostomy tube should be started today. Dietitian has been on board. IV Zosyn to continue. Patient's and his sister at the bedside. Discussed. Also spoke with Dr. Serna. Given patient has no other predisposing cardiac factors for the A-fib except acute illness. His LV function is normal. Left atrium is normal. He has already been loaded with IV amiodarone. Will switch him to oral Lopressor 12.5 twice daily. Hence will DC amiodarone. Patient yesterday had wheezing was put on bronchodilators steroids per pulmonary. November 17: Propped up in bed. NG tube was discontinued. Sinus rhythm. Remains NPO. Getting G-tube feeding at 40 cc an hour. Dietitian following. Get arrangements done for DC home tomorrow including tube feeding. Increase activity discussed with patient and elder daughter at the bedside. Still requiring oxygen. Incentive spirometry. November 18: Patient up in recliner. Earlier today spoke to social work program coordinator David. Informed patient is rather weak and will be going to the [facility]. Looking at authorization. Denae came to the room and spoke to patient his and his daughter. They are very keen to take the patient home as 3 daughters all nurses and they will take care of him at home. Patient earlier today to abdominal cramping and some loose stools.'s tube feeding was held. Told the nurse to start back at the rate of 40 cc an hour. He was before the getting it at 55 cc an hour. Incentive spirometry was again emphasized. Patient remains on 4 L of oxygen. November 19: I saw the patient this morning. Hence I am in the evening. Morning was sitting with his sons. Has some edema. Lungs had crackles I gave him 40 mg of Lasix. He did make good urine. Tube feeding was held from the previous evening of because of abdominal cramping. Acute abdominal series showed nonspecific bowel gas pattern and SBO to be ruled out. Family and patient was updated. Told him discharge will depend on day by day. Later this afternoon CT scanAnd abdomen pelvis done. Showed small bowel to be 3 point centimeter dilated. Some anasarca. Gastric findings. Gallstones. Later spoke to Dr. Irby from general surgery. They will further review and decide about further plan of action. Will give further dose of IV Lasix because of fluid overload from likely hypoalbuminemia and IV fluids previously received. Patient may take his pills by mouth. Total time spent today about 1 hour with over 40 minutes of discussion. Patient did state his breathing is better after Lasix this morning. November 20: Saw the patient this morning. was present. Patient received 2 more doses of Lasix. Diuresed well. Breathing much better. Lungs are sounding better. Discussed with Dr. Zepeda other surgeon. He is taking 3 cc out of the balloon and the gastrostomy tube. Started trickle feeding at 5 cc an hour. Will see how this does. Later in the day ran into the and the daughter again. Did update them on the same. Dilaudid was discontinued yesterday but morphine was ordered by surgery for patient having pain. Concerns about GI issues with that we will DC the morphine. As family does not want the same. November 21: Patient reclining bed. Tired. Several family members at the bedside. Including his and eldest daughter. Patient started on trickle feed yesterday at 5 cc an hour. This morning he has been on 10 cc an hour. Still having some loose stools. C. difficile was ordered. Patient on 2 L of nasal cannula. Has diuresed well. Will give an additional dose of Lasix today. If C. difficile is negative and the diarrhea is from the tube feedings we may have to use a fecal management system to keep him comfortable. Otherwise patient remains NPO. Dietitian is following the patient. Care was discussed length with patient the and daughter at the bedside. Questions answered. Liquid Tylenol has been added for abdominal pain. Avoid narcotics. Elevated white count likely from Solu-Medrol 11/23/2023--patient was feeling better today. Multiple family member at bedside. No issues overnight. Normal saline at 10 cc an hour, tube feeding at 20 cc an hour, remains on Zosyn, on 3 L oxygen. Afebrile. Heart rate 62, respiratory rate 16, blood pressure 114/67, saturating 91% on 3 L. WBCs 14.5, 9.7 hemoglobin. Platelet 242. BMP is unremarkable. Pulmonary and general surgery following. General surgery recommended to continue tube feeds at 20 cc/h. 11/24/2023--patient reported significant abdominal discomfort, also noted to have leak around G-tube. General surgery is following, evaluated the patient at bedside, adjusted tube feeds. Also reported having diarrhea, on 2 L oxygen, went up to 5 L. Blood pressure was low, 500 mL fluid bolus with close monitoring of respiratory status ordered. Currently on DuoNebs, Solu-Medrol, will continue Zosyn. Chest x-ray showed a left lower lobe infiltrate. Abdominal x-ray showed multiple air-fluid levels. CT abdomen showed multiple dilated small bowel loops, consistent with obstruction, pneumoperitoneum, cholelithiasis and ascites. WBCs 14.1, platelet 255, hemoglobin 8.9. NG tube in place. Family at bedside. patient transferred to SICU for close monitoring. 11/25/23--patient is currently in the ICU, required Levophed overnight due to low blood pressure, low urine output with creatinine trending up. Nephrology following. [employer] also following. Patient remains n.p.o., NG tube in place, following NG tube insertion patient had total of 2 L output, J-tube was draining approximately 200 cc over last 8 hours, continues to have abdominal pain and abdominal tenderness. Patient on IV fluids. Currently on 4 L oxygen. WBCs 8.2, hemoglobin 12.3, platelet 188. Chest x-ray earlier today showed right sided port and a stable left lung airspace disease, NG tube in place. Patient currently on Zosyn, on IV Dilaudid for pain control, on IV Solu-Medrol. General surgery planning for OR today, started on TPN. 11/26/23--patient was seen and examined today. Patient is currently sedated, intubated on mechanical ventilation. Family at bedside. Patient underwent ex lap, abdominal washout, small bowel resection with new feeding jejunostomy tube placement yesterday, small bowel was noted to be perforated with significant contamination of abdominal cavity. Patient is currently on vancomycin and Zosyn. Creatinine went up to 2.85, nephrology following, recommended to continue IV fluids, avoid nephrotoxin Preserved EF on echocardiogram.. Patient currently on Levophed, vasopressin in the ICU for close monitoring. Patient is afebrile, heart rate 122, blood pressure 129/76, currently on mechanical ventilation, sedated. November 26: ICU. Intubated. FiO2 60 and a PEEP of 5. Drips include IV amiodarone. Heart rate was up early did get fired microgram of IV digoxin and 2.5 mg of IV Lopressor. Did drop her blood pressure bit. Urine output was low. Received 80 mg of IV Lasix. Ahmet to 150 cc. Other drips include IV propofol, vasopressin, Levophed. TPN was started yesterday. Antibiotics include IV Zosyn and vancomycin. Patient has a J-tube to drainage to gravity. Spoke to patient's younger daughter and at the bedside. Prognosis guarded. Continue current treatment plan. Chest x-ray shows right lower lobe consolidation. Small pleural effusion. November 27: ICU. Intubated. FiO2 55 and a PEEP of 5. Antibiotics include IV vancomycin. Drips include Levophed at a small dose, IV vasopressin, propofol, amiodarone. Patient converted to sinus rhythm this morning. Getting TPN and normal saline at 75 cc an hour. Urine output about 25 cc an hour. RAYA drain put out about 260 cc last 12 hours that is last trolley car operator. NG tube with bilious output. And also GI J-tube output to gravity. Spoke to patient's and daughter at the bedside. They understand patient still not out of the kee. Platelets have dropped-therefore probably Zosyn stopped. November 28: ICU. Intubated. FiO2 55 and a PEEP of 5. Patient is in sinus rhythm. Seen this morning. Due for dialysis catheter this afternoon. Urine output about 15 to 20 cc an hour. Patient is on IV Lasix 80 mg every 12. Saline is KVO. Drips include IV propofol vasopressin. Patient having significant output through the RAYA drain and the jejunostomy tube to drainage. Creatinine had been getting worse. Patient's at the bedside. Understands patient's remains critically ill. Hemoglobin is down to 7. Given that patient's pain hypotensive, and on vasopressin we will give a unit of blood with dialysis. Getting TPN antibiotic changed to IV meropenem November 29: ICU. Intubated. FiO2 55 and a PEEP of 5. Remains in sinus rhythm. Getting TPN. Dialyzed yesterday and this morning. About 1000 cc removed. Urine output about 50 cc an hour. Patient is on IV propofol. Off vasopressin. Still having significant output through the RAYA drain and jejunostomy tube. Patient received a second unit of blood yesterday. Patient's and daughter at the bedside. I did discuss guarded prognosis. Did asked them to revisit CODE STATUS.. Getting IV meropenem. November 30: ICU. Intubated. Did get a sedation holiday t today. Back on propofol. Getting TPN. Still getting IV Lasix. Fair urine output. Jejunostomy tube in last 8 hours was about 30 cc output. RAYA drain in the 8 hours had about 180 cc output. Telemetry shows sinus rhythm. NG tube has low intermittent suction with negative output. On the vent with FiO2 40 and a PEEP of 5. No hemodialysis today. Discussed with the and eldest daughter at the bedside. IV meropenem-patient's sputum had grown Citrobacter freundii and Pseudomonas aeruginosa. December 01: ICU. Intubated. Jejunostomy tube to gravity. Only 10 cc output in last 24 hours. RAYA drain. About 190 cc last 6 hours. Nasogastric tube to low intermittent suction. Minimal output. Patient is on a small dose of propofol 5 mics. Telemetry shows sinus rhythm. Patient started on small dose of Cleviprex this morning. Blood pressure. Getting TPN. FiO2 35 and PEEP of 5. Discussed with the at the bedside. Hemodialysis today December 02: ICU. Patient remains intubated. FiO2 35 PEEP of 5. Patient is on IV propofol. IV Cleviprex was discontinued yesterday. Also remains on TPN. Telemetry shows sinus rhythm. NG tube is good no output. Still significant output through the RAYA drain. Jejunostomy tube has minimal output. Patient had hemodialysis today 2 L of fluid was removed. Oral half liters yesterday. Patient getting a sedation holiday. General Surgery started the patient on trickle feeding at 10 cc an hour. I did speak to patient's at the bedside. Prognosis remains guarded but there is some improvement. December 03: ICU. Intubated. FiO2 35 PEEP of 5. Drips include IV propofol and Precedex. Getting TPN. Telemetry shows sinus rhythm. Remains on IV Lasix 80 mg twice a day. IV meropenem. Because patient gets easily agitated when transitioning off propofol he has been switched over to Precedex. For hemodialysis today. December 04: ICU. Intubated. FiO2 35 and a PEEP of 5. Patient been taken off propofol is on Precedex. Telemetry sinus rhythm. J-tube with minimal output. RAYA drain with decreased output. NG tube to suction minimal output. Family wanted to hold off trickle feeding until cleared by oncology. Which he did today. Trickle feeding will be started today. Spoke to patient's and one of the daughters at the bedside. Dr. Russ is spoken to the earlier this point they want to do further tracheostomy tube. December 05: ICU. Intubated. FiO2 35 PEEP of 5. Patient remains on Precedex and PPN. Patient's dialysis catheter was not functioning is getting another [address] Bobby this afternoon. Remains on IV meropenem. Has a RAYA drain in the jejunostomy tube to gravity. NG tube to low intermittent suction. No family at the bedside. December 06: ICU. Intubated. FiO2 35 PEEP of 5. RAYA drain putting out about approximately 120 cc per shift. Patient on IV Precedex. FiO2 35 PEEP of 5. Telemetry-sinus rhythm. Patient occasionally been put on small dose of Levophed specially for hemodialysis getting it today. Also started on midodrine for low blood pressure. Tolerating tube feeding at 10 cc an hour. Also had a bowel movement. Mentation has not improved. Even with sedation holiday. Neurology consulted. CT brain shows no acute process. December 07: ICU. Intubated. FiO2 35 PEEP of 5. Telemetry-sinus rhythm. NG tube to suction low intermittent minimal output. Getting TPN. Tube feeding at 20 cc an hour. RAYA drain averaging over 100 cc per shift. Remains on Precedex. EEG was done today. Discussed with at the bedside. Family is currently not inclined for tracheostomy tube today. Day 13 of being intubated December 08: ICU. Intubated. FiO2 35 PEEP of 5. Patient is put on back on propofol per floor coverer Dr. BINGHAM. EEG did show some potential for spikes was put on Keppra by neurology. Telemetry shows sinus rhythm. NG tube to suction with no output. Tube feeding was put on hold because of questionable discharge on the site. Being restarted today. RAYA drain is 150 cc last 12-hour shift. Patient does open eyes. Family has decided to proceed with tracheostomy and surgery has been consulted for the same. Spoke to the at the bedside. For hemodialysis today. December 09: ICU. Intubated FiO2 35 PEEP of 5. Patient seen this morning. Pending tracheostomy placement this afternoon. Remains NPO. G-tube feeding was held overnight. RAYA drain putting out about 100 cc per shift. Received a unit of blood for hemoglobin of 6.6. On 25 mics of propofol. Getting TPN and meropenem. Spoke to the at the bedside. Patient became hypotensive with dialysis yesterday. Levophed had to be given. Only 800 cc were removed yesterday. No hemodialysis today. December 10: ICU . FiO2 35, PEEP 5. Tracheostomy was done yesterday by Dr. Ewing. G-tube feeding was started today at 10 cc an hour. Dietitian following. RAYA drain 12-hour shift overnight put out about 30 cc. Patient hemodialysis to day about 1 L removed. Patient has a sacral stage II decub with a dressing. On propofol 20 mics. Spoke to at the bedside. TPN. Meropenem was discontinued yesterday. December 11: ICU. FiO2 35 PEEP of 5. Tracheostomy. NG tube was discontinued. No hemodialysis today. Telemetry shows sinus rhythm. J-tube feeding at 40 cc an hour. TPN was discontinued. Patient has been off propofol also. PICC line in place. Patient had a EEG done today. Spoke to patient's elder daughter at the bedside. May open eyes occasionally. Not really following commands December 12: 73-year-old white male with history of chronic abdominal pain for the last 8 months has been treated with Protonix 40 mg daily for the last 3 months with no improvement. Patient had a 22 pound weight loss in the last [address] of the abdomen and pelvis 3 weeks ago showed thickening of the antral wall with pathological adenopathy posterior to the stomach suspicious of neoplasm. Today the patient underwent elective upper endoscopy to evaluate further, patient received IV sedation by anesthesia endoscope was inserted into the mouth, esophagus was intubated without any difficulty there was evidence of large amount of liquid and solid food noted in the stomach suggestive of gastric outlet obstruction. Scope could not be advanced through the pylorus, however in the prepyloric area there was a large superficial ulceration identified with multiple biopsies were done from this area. The body cardia and fundus could not adequately visualize because of large amount of retained food in the stomach. Scope was withdrawn back to the stomach and upon careful examination the mucosa of the antrum body and cardia as well as the fundus appeared normal. Procedure was being performed and biopsies were done patient threw up and subsequently became hypoxic there was clearly evidence of witnessed aspiration anesthesia intubated the patient, procedure was terminated, and the patient was transferred to the ICU, this consult was initiated. Patient is now on assist- control rate of 20 tidal volume 500 FiO2 70% PEEP of 10 ABG is pending, earlier ABG showed profound hypoxia patient is on propofol at 50 mcg/kg/min, next ABG is pending. Chest x-ray showed chronic changes without evidence of acute pulmonary disease. 12/14/2023 Patient remains in the ICU, generally weak Patient s/p tracheostomy G-tube in place Patient still has fever and mild tachycardia but tachycardia is improving, leukocytosis improving as well. Hemoglobin 8.1. Creatinine 3.0 and nephrology team on the case. He has mild transaminitis. He was getting Zosyn which is held now, nowCalcitonin is pending 12/14 Patient shon in the ICU, he is still encephalopathic and does not follow command. Neurology service following closely. He is status post tracheostomy. Also J-tube His abdomen looks soft and on exam he has mild coarse secretions. Has a Abarca catheter with clear urine His pro- Calcitonin is still high but trending down 3.0 down to 1.9 No fever this morning WBC slightly less at 16.3 Patient currently off antibiotic He is getting steroids IV Solu-Medrol which might contribute to his leukocytosis. Also he is on IV Keppra by neurologist 12/14 Patient remains confused in the ICU calm, he had a good night per family member and staff. Tracheostomy in place Patient has occasional coughing spells, patient also developed some partial wound dehiscence in his abdomen, surgery team are aware and are going to evaluate the patient Patient also has positive blood culture from 12/13: Gram-positive cocci in clusters. Patient received one-time dose of IV vancomycin. Patient also had fever 2 days ago, leukocytosis and total elevated pro- Calcitonin. Therefore we are going to consult infectious disease team. As his antibiotic Zosyn was stopped few days ago. Currently patient KVO He has good urine output December 16: ICU. Trach. Congested. Requiring suctioning. No hemodialysis today. Getting G-tube feeding at 50 cc an hour. FiO2 30 and a PEEP of 5. On IV Precedex. Eyes open. Does follow commands. Weakness in the limbs. Spoke to at the bedside. Sputum positive for Klebsiella oxytoca and Pseudomonas aeruginosa. December 17: ICU. On trach. Currently cough with increased secretions requiring suctioning. Adding scopolamine patch. Very much clear secretion. CT scan is showing right upper lobe lung abscess. G-tube feeding at 50 cc an hour. Hemodialysis today. RAYA drain putting out about 140 cc a shift. Serous. Has been midline incision wound dehiscence. Wound VAC was placed on it. Stage II ulcer. Patient is on Precedex drip 0.15 mics. Urine output is good about 6200 cc an hour. Spoke to the at the bedside. Patient currently not stable for transfer to LTAC. No limb movements. PT OT on the case. otherwise awake does follow simple commands by face December 18: ICU. Patient seen this afternoon. Because of pain getting IV Dilaudid. No nasal cannula on room air. Does move about his head. Telemetry shows sinus rhythm. FiO2 30 and a PEEP of 5. Patient started on scopolamine patch yesterday has decreased secretions today. Good urine output. Tube fee ding at 60 cc an hour. Wound VAC on incisional would be high since in place. RAYA drain continues to make output. No hemodialysis today December 19: ICU. Patient was seen earlier today. FiO2 30 and a PEEP of 5. Sinus rhythm. Awake. Does follow with eyes. Tube feeding got obstructed tube feedings held for now. Increasing oozing from the incision drainage site. at the bedside. Wound VAC remains in place. Good urine output. Dialysis held today. December 20: ICU. Per nephrology no dialysis today. 1 L fluid bolus given. J- tube was replaced over the wire by Dr. Ewing from surgery. On Precedex 0.6 mcg. FiO2 30 and a PEEP of 5 on the vent. RAYA drain putting out of around 100 cc per shift. at the bedside. Drainage through the abdominal incision wound. CT scan abdomen showed tube placement in the small bowel. Stable large right lower quadrant mass with a fluid level. December 21: ICU. No dialysis today. Patient started on trickle feeding through the J-tube yesterday. He started leaking around the J-tube site. Tube feeding was held. Dressings were placed. Wound VAC remains on the incision. Still having output through the RAYA drain. Patient remains on Precedex 0.4 mcg. FiO2 30 and a PEEP of 5. Sinus rhythm. at the bedside. December 22: ICU. Patient was seen this morning today by me. No dialysis today. Patient's and daughter at the bedside. FiO2 30 and a PEEP of 5. Sinus rhythm. Still having significant secretions through the tracheostomy tube. On Precedex 0.4 mcg. Getting D5W IV fluids. Tube feeding remains to be on hold since yesterday. Still output of RAYA drain. Awaiting input from surgery. Discussed with the and daughter. December 23: ICU. Saw the patient this afternoon. Because of good output of urine dialysis has been discontinued. Telemetry shows sinus rhythm. FiO2 30 and a PEEP of 5. RAYA output has been around 8200 cc an hour. Good urine output. Patient does have very slight movement of the limbs. Wound VAC is putting out about 20 cc per shift. Yesterday when trickle feeding was started patient's J- tube drainage also started leaking around the insertion site. Tube feeding was held. Patient remains on IV Zosyn and Precedex at 0.3 mcg. I had a very lengthy discussion with patient's daughter and at the bedside overall guarded prognosis. Later surgery spoke to the family, and then the nurse called me that family was wanting transferred to [facility]. I spoke to Dr. Irby. They felt they could not offer anything more at this point. I did call the [facility] transfer fast food team member. Gave them the reason for transfer. Later in the ICU nurse informed me through [employer] that [facility] had declined the transfer. Total time spent today about 50 minutes with over 30 minutes of discussion. Active Medications Acetaminophen (Acetaminophen Tab 325 Mg Tab) 650 mg PO Q4HR PRN PRN Reason: Fever and/ or Pain Last Admin: 12/09/23 20:09 Dose: 650 mg Acetaminophen (Acetaminophen Oral Susp (Peds) 3,840 Mg/120 Ml Bottle) 480 mg PO Q4HR PRN PRN Reason: Fever Albuterol/Ipratropium (Ipratropium-Albuterol 3 Ml Neb) 3 ml INHALATION RT-QID [facility] Last Admin: 12/24/23 19:40 Dose: 3 ml Albuterol/Ipratropium (Ipratropium-Albuterol 3 Ml Neb) 3 ml INHALATION RT-Q2H PRN PRN Reason: Shortness Of Breath Or Wheezing Last Admin: 12/03/23 03:45 Dose: 3 ml Chlorhexidine Gluconate (Chlorhexidine Gluconate 15 Ml Cup) 15 ml MUCOUS MEM BID [facility] Last Admin: 12/24/23 08:49 Dose: 15 ml Darbepoetin Scooby (Darbepoetin Scooby 40 Mcg/0.4 Ml Syringe) 40 mcg SQ Q7D [facility] Last Admin: 12/24/23 18:13 Dose: 40 mcg Dextrose/Water (Dextrose 50% Syringe 50 Ml) 25 ml IVP PER PROTOCOL PRN; Protocol PRN Reason: Hypoglycemia Last Admin: 12/24/23 01:01 Dose: 25 ml Dextrose/Water (Dextrose 50% Syringe 50 Ml) 50 ml IVP PER PROTOCOL PRN; Protocol PRN Reason: Hypoglycemia Hydromorphone HCl (Hydromorphone 0.5 Mg/0.5 Ml Syringe) 0.25 mg IVP Q3H PRN PRN Reason: Pain Last Admin: 12/24/23 16:23 Dose: 0.25 mg Hydromorphone HCl (Hydromorphone 1 Mg/Ml 1 Ml Syringe) 1 mg IVP Q3HR PRN PRN Reason: Pain/Discomfort Last Admin: 12/24/23 18:27 Dose: 1 mg Sodium Chloride (Saline 0.9%) 1,000 mls @ 20 mls/hr IV .Q24H [facility] Last Admin: 12/24/23 14:24 Dose: Not Given Piperacillin Sod/Tazobactam (Sod 3.375 gm/ Sodium Chloride) 100 mls @ 25 mls/hr IVPB Q12HR [facility]; Protocol Last Admin: 12/24/23 08:49 Dose: 25 mls/hr Daptomycin 600 mg/ Sodium (Chloride) 50 mls @ 100 mls/hr IVPB Q48H [facility]; Protocol Last Admin: 12/23/23 08:10 Dose: 100 mls/hr Dextrose/Water (Dextrose 5%-Water Iv Soln) 1,000 mls @ 125 mls/hr IV .Q8H [facility] Last Admin: 12/24/23 17:05 Dose: 125 mls/hr Propofol 1,000 mg/ IV Solution 100 mls @ 8.685 mls/hr IV .[id number] [facility]; Protocol Last Titration: 12/24/23 20:18 Dose: 45 mcg/kg/min, 26.055 mls/hr Norepinephrine Bitartrate 4 mg (/ Sodium Chloride) 254 mls @ 11.03 mls/hr IV .Q23H2M [facility]; Protocol Last Admin: 12/24/23 19:45 Dose: 0.03 mcg/kg/min, 11.03 mls/hr Insulin Aspart (Insulin Aspart (Novolog) 100 Unit/Ml Vial) 0 unit SQ 0000,0600,1200,1800 [facility]; Protocol Last Admin: 12/24/23 18:02 Dose: 2 unit Insulin Detemir (Insulin Detemir (Levemir) 100 Unit/Ml Syr) 24 unit SQ DAILY@0700 [facility] Last Admin: 12/24/23 05:53 Dose: Not Given Levetiracetam (Levetiracetam Iv 500 Mg/5 Ml Vial) 250 mg IVP Q24HR [facility] Lorazepam (Lorazepam 2 Mg/Ml Inj) 1 mg IV Q4HR PRN PRN Reason: Anxiety Last Admin: 12/24/23 16:01 Dose: 1 mg Metoprolol Tartrate (Metoprolol Tartrate 5 Mg/5 Ml Vial) 2.5 mg IVP Q6HR PRN PRN Reason: Heart Rate - HIGH Last Admin: 11/27/23 08:25 Dose: 2.5 mg Miscellaneous Information (Magnesium Replacement Protocol 1 Each Misc) 1 each MISCELLANE DAILY PRN; Protocol PRN Reason: Per Protocol Multi-Ingredient Ointment (Zinc Oxide 20% Oint 28.4 Gm Tube) 1 applic TOPICAL BID PRN; Protocol PRN Reason: Skin Irritation Naloxone HCl (Naloxone 0.4 Mg/Ml 1 Ml Vial) 0.2 mg IV Q2M PRN PRN Reason: Opioid Reversal Pantoprazole Sodium (Pantoprazole 40 Mg/10 Ml Vial) 40 mg IVP BID [facility] Last Admin: 12/24/23 08:49 Dose: 40 mg Petrolatum (Zinc Oxide Paste (Z-Guard) 1 Applic) 1 applic TOPICAL BID [facility]; Protocol Last Admin: 12/24/23 09:05 Dose: 1 applic Past medical history to include: GERD Social history: . No smoking. Physical examination: VITAL SIGNS: 90, 21, 105 x 79, 98% GENERAL: Eyes open moving head. Left groin dialysis catheter EYES: Pupils equal. Conjunctiva edouard l. HEENT: External appearance of nose and ears normal, tracheostomy-. NECK: JVD unable to assess; masses not palpable. HEART: First and second heart sounds are normal; edema, present LUNGS: Respiratory rate increased, decreased breath sounds ABDOMEN: Soft, some tenderness. Liver spleen not palpable, no masses palpable..jejunostomy tube-feeding held. RAYA drain. Incision with stitches with - wound VAC PSYCH: Unable to assess NEURO: Power in the limbs 1/5.. Eyes open. Moves head to command. Attempts to talk INVESTIGATIONS, reviewed in the clinical context: December 23: White count 10.6 hemoglobin 7.8 platelets 137 sodium 147 potassium 3.5 BUN 34 creatinine 2.08 December 22: White count 9 hemoglobin 7 platelets 187 sodium 149 potassium 4 BUN 86 creatinine 2.31 December 21: White count 12.3 hemoglobin 7.7 platelets 219 sodium 149 potassium 4.3 BUN [address] chest abdomen without contrast [December 16] right upper lung cavitary lesion with air-fluid level in the posterior aspect and a larger cavitary lesion possibly within the lung parenchyma itself. Extending down towards the diaphragm additional airspace opacities in the left lung base. December 10: White count 21.3 hemoglobin 7.4 platelets 129 potassium 4.2 BUN 111 creatinine 3.77 December 09: White count 26.1 hemoglobin 8.6 platelets 154 potassium 4.1 BUN 86 creatinine 3.31. Hemoglobin this morning was 6.6 prior to transfusion EEG-evidence of generalized cerebral dysfunction and sporadic intermittent higher amplitude sharply contoured waves mainly bifrontal. Showing cortical irritability. 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 Serosal fibrous adhesions. Viable margins. Sputum culture: [November 25]: Citrobacter freundii. Pseudomonas aeruginosa November 20: White count 14.4 hemoglobin 8.8 platelets 229 potassium 4.1 BUN [address] scan abdomen [November 19] possible small bowel obstruction Stool: C. difficile negative November 15: WBC 13 hemoglobin 7.7 platelets 248 potassium 4.3 creatinine 0.87 2D echo: EF 55 to 60%. Kidneys bladder: Unremarkable November 13: White count 12 hemoglobin 6.9 platelets 276 potassium 4.4 creatinine 1.21 magnesium 1.8 iron 6 TIBC 365% saturation 1.64 transferrin 261 ferritin 34.6 B12 569 folate 4.4 November 11: Creatinine 0.86 EGD: Large amount of retained solid liquid food noted in the stomach. Large superficial gastric antral ulceration involving most of the antrum extending into the pylorus causing pyloric stenosis. Biopsies were obtained. Chest x-ray film personally reviewed by me-scattered infiltrates Assessment plan: -Aspiration pneumonitis bilateral from retained gastric contents mostly food and liquids, causing acute hypoxic respiratory failure: On presentation: Subsequent sputum culture November 25: Citrobacter freundii, Pseudomonas aeruginosa. December 13: Klebsiella oxytoca, Pseudomonas aeruginosa IV meropenem-was received originally. Now receiving IV daptomycin and Zosyn Pulmonary following -Probable lung abscess larger 1 on the right side-patient cultures are growing Pseudomonas and Klebsiella oxytoca IV Zosyn, daptomycin -Acute pulmonary edema and fluid overload from hypoalbuminemic state and fluids from IV.:: Has been getting Lasix and dialysis: Both held -Altered mentation. Possibly encephalopathy. Could be delirium.: improvement CT brain [December 06] nothing acute Neurology following EEG-evidence of generalized cerebral dysfunction and sporadic intermittent higher amplitude sharply contoured waves mainly bifrontal. Showing cortical irritability. Keppra was started on December 07 -Critical care poly- Pedro neuropathy: Slow to respond PT OT -Gallstones, asymptomatic -Small l bowel perforation at site of jejunostomy tube tip with balloon..: Portion of small bowel resected. On November 24. New J-tube was placed.- drainage to gravity:-Now discontinued December 19: J-tube blocked. J-tube replaced on December 20 over wire December 21: Leaking around the J-tube site. Feeding held December 23: Good feeding was started yesterday evening but again started leaking increasingly around the J-tube site-feeding held again -Acute kidney injury. Possible ATN from hypotensive shock: Slow to respond Renal ultrasound unremarkable. Started on renal replacement therapy on November 28. Followed by nephrology-dialysis has been on hold now -Nutrition Jejunostomy tube placed November [address] Ewing Received TPN -Midline abdominal incision wound dehiscence Wound VAC placed -Acute recurrent atrial fibrillation-converted to sinus rhythm Received IV amiodarone. Cardiology following Lopressor -Acute hypoxic respiratory failure from aspiration pneumonia, status post ventilator assisted: Reintubated November 25. FiO2 35 PEEP of 5 Tracheostomy tube-by Dr. Zepeda on December 09 -Septic shock, recovered -Hypertension Patient started on Cleviprex-discontinued -Intermittent hypotension Intermittent use of Levophed. 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 Also anemia of blood draw. Iron deficiency anemia Received 3rd unit of blood . IV iron. -Severe thrombocytopenia. Would consider coagulation disorder secondary to infection., In the setting of underlying lymphoma.: Recovered Hematology following. -Acute blood loss anemia, Has received 3 units of blood -Sacral stage II decub ulcer Dressing in place -GERD PPI -Acute diarrhea secondary to tube feeding.: Resolved C. difficile ruled out. -Large superficial gastric antral ulceration involving the gastric antrum extending into the pylorus with gastric outlet obstruction. 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 Port placed. For outpatient PET scan. -Full code Spoke to the at length and the daughter. Prognosis guarded. Later called [facility] for transfer as per family. [facility] has declined transfer. Past Medical History Past Medical History: GERD/Reflux History of Any Multi-Drug Resistant Organisms: None Reported Past Surgical History: Heart Catheterization Additional Past Surgical History / Comment(s): colonsocopy,spinal injection, Past Anesthesia/Blood Transfusion Reactions: No Reported Reaction Past Psychological History: No Psychological Hx Reported Smoking Status: Never smoker Past Alcohol Use History: None Reported Past Drug Use History: None Reported
[2023-12-25 00:12] LABS: Glucose,Whole Blood 194 mg/dL (70-110)
[2023-12-25 05:39] LABS: Glucose,Whole Blood 185 mg/dL (70-110)
[2023-12-25 05:40] LABS: ABG HCO3 21 mmol/L (21-25); ABG PCO2 30 mmHg (35-45); ABG PH 7.45 (7.35-7.45); ABG PO2 98 mmHg (83-108); ABG TCO2 22 mmol/L (19-24); Allen Test Performed? Yes
[2023-12-25 05:55] LABS: ABG Base Excess -2.6 mmol/L
--- NOTE | 2023-12-25 08:10 | XR ---
EXAMINATION TYPE: XR chest 1V portable DATE OF EXAM: 12/25/2023 COMPARISON: 12/24/2023 HISTORY: SOB, Follow Up FINDINGS: Indwelling tubes and catheters are unchanged. Right basilar right apical opacities persist unchanged. Underlying mass or infiltrate not excluded as well as associated pleural effusion. Stable appearance of the cardio-mediastinal structures at this time. Pleural effusion unchanged. IMPRESSION: 1. Stable portable chest. Clinical correlation and follow up until resolution is recommended. [facility], , 12/25/2023 8:08 AM
[2023-12-25 08:11] LABS: Anisocytosis Slight; Basophils % (A) 0 %; Eosinophils # (A) 0.1 k/uL (0-0.7); Eosinophils % (A) 1 %; HCT 25.7 % (39.0-53.0); HGB 8.2 gm/dL (13.0-17.5); Hypochromasia Marked; Lymphocytes # (A) 2.2 k/uL (1.0-4.8); Lymphocytes % (A) 20 %; MCH 29.6 pg (25.0-35.0); MCV 92.6 fL (80.0-100.0); Mean Platelet Volume 8.8; Monocytes # (A) 0.3 k/uL (0-1.0); Monocytes % (A) 2 %; Neutrophils # (A) 8.8 k/uL (1.3-7.7); Neutrophils % (A) 76 %; Platelet Count 106 k/uL (150-450); RBC 2.77 m/uL (4.30-5.90); RDW 18.3 % (11.5-15.5); WBC 11.5 k/uL (3.8-10.6)
[2023-12-25 08:31] LABS: African American GFR (CKD) 42 (>60 ml/min/1.73 sqM); Anion Gap 9 mmol/L; Blood Urea Nitrogen 60 mg/dL (9-20); Calcium 7.1 mg/dL (8.4-10.2); Carbon Dioxide 18 mmol/L (22-30); Chloride 114 mmol/L (98-107); Glucose 157 mg/dL (74-99); Non-African American GFR(CKD) 37 (>60 ml/min/1.73 sqM); Potassium 3.8 mmol/L (3.5-5.1); Sodium 141 mmol/L (137-145)
[2023-12-25] MEDS: levETIRAcetam IV 500 MG/5 ML VIAL IVP SCH (08:39)
--- NOTE | 2023-12-25 09:37 | P.PN ---
Subjective Patient is seen in follow-up for acute kidney injury. Patient underwent exploratory laparotomy with small bowel obstruction NG tube replacement Sep tem2023. Nonoliguric. Started on hemodialysis November 29, 2023. Last dialysis December 18, 2023. Status post tracheostomy December 10, 2023. Renal function improving. Tube feeds currently held. Sodium level 141 today. Blood pressure dropped after received Dilaudid last night. Now back on Levophed. Vital signs stable. General: Resting in bed. HEENT: Tracheostomy noted. LUNGS: Scattered rhonchi. HEART: Regular rate and rhythm. ABDOMEN: No drainage. EXTREMITITES: Trace edema. Objective - Vital Signs Vital signs: Vital Signs Temp 98.8 F 12/25/23 04:00 Pulse 93 12/25/23 08:26 Resp 31 H 12/25/23 07:15 BP 108/70 12/25/23 07:15 Pulse Ox 99 12/25/23 07:15 FiO2 30 12/25/23 08:01 Intake & Output 12/24/23 12/25/23 12/25/23 18:59 06:59 18:59 Intake Total 4932.832 3480.713 199.963 Output Total 785 980 75 Balance 673.591 0675.713 124.963 Weight 94.3 kg Intake: IV 1550 2380 130 0.9 KVO 30 5 Dextrose 5% in Water 1, 100 000 ml @ 100 mls/hr IV . Q10H [facility] Rx#:[id number] Dextrose 5% in Water 1, 1250 1250 125 000 ml @ 125 mls/hr IV . Q8H [facility] Rx#:[id number] Lactated Ringers 1,000 ml 1000 @ 50 mls/hr IV .Q20H [facility] Rx#:[id number] Piperacillin-Tazobactam 3 100 .375 gm In Sodium Chloride 0.9% 100 ml @ 25 mls/hr IVPB Q8HR [facility] Rx# :[id number] Potassium Chloride 20 meq 200 In Water For Injection 1 100ml.bag @ 50 mls/hr IVPB Q2H [facility] Rx#: [id number] Intake, IV Titration 125.121 271.713 69.963 Amount Dexmedetomidine/0.9% NaCl 125.121 3.079 (Pmx) 400 mcg In Empty Bag 1 bag @ 0.2 MCG/KG/HR 4.925 mls/hr IV .[id number] [facility] Rx#:[id number] propofoL 1,000 mg In 268.634 69.963 Empty Bag 1 bag @ 15 MCG/ KG/MIN 8.685 mls/hr IV . [id number] [facility] Rx#:[id number] Output: Drainage 180 50 Right Abdomen 180 50 Urine 605 930 75 Other: Voiding Method Indwelling Catheter Indwelling Catheter ABP, PAP, CO, CI - Last Documented Arterial Blood Pressure 139/59 - Labs CBC & Chem 7: 12/25/23 07:47 12/25/23 07:47 Labs: Abnormal Lab Results - Last 24 Hours (Table) 12/24/23 12/24/23 12/25/23 Range/Units 11:33 17:10 00:10 WBC (3.8-10.6) k/uL RBC (4.30-5.90) m/uL Hgb (13.0-17.5) gm/dL Hct (39.0-53.0) % RDW (11.5-15.5) % Plt Count (150-450) k/uL Neutrophils # (1.3-7.7) k/uL ABG pCO2 (35-45) mmHg ABG O2 Saturation (94-97) % Chloride (98-107) mmol/L Carbon Dioxide (22-30) mmol/L BUN (9-20) mg/dL Creatinine (0.66-1.25) mg/dL Glucose (74-99) mg/dL POC Glucose (mg/dL) 123 H 160 H 194 H (70-110) mg/dL Calcium (8.4-10.2) mg/dL 12/25/23 12/25/23 12/25/23 Range/Units 05:37 05:38 07:47 WBC 11.5 H (3.8-10.6) k/uL RBC 2.77 L (4.30-5.90) m/uL Hgb 8.2 L (13.0-17.5) gm/dL Hct 25.7 L (39.0-53.0) % RDW 18.3 H (11.5-15.5) % Plt Count 106 L (150-450) k/uL Neutrophils # 8.8 H (1.3-7.7) k/uL ABG pCO2 30 L (35-45) mmHg ABG O2 Saturation 99.0 H (94-97) % Chloride (98-107) mmol/L Carbon Dioxide (22-30) mmol/L BUN (9-20) mg/dL Creatinine (0.66-1.25) mg/dL Glucose (74-99) mg/dL POC Glucose (mg/dL) 185 H (70-110) mg/dL Calcium (8.4-10.2) mg/dL 12/25/23 Range/Units 07:47 WBC (3.8-10.6) k/uL RBC (4.30-5.90) m/uL Hgb (13.0-17.5) gm/dL Hct (39.0-53.0) % RDW (11.5-15.5) % Plt Count (150-450) k/uL Neutrophils # (1.3-7.7) k/uL ABG pCO2 (35-45) mmHg ABG O2 Saturation (94-97) % Chloride 114 H (98-107) mmol/L Carbon Dioxide 18 L (22-30) mmol/L BUN 60 H (9-20) mg/dL Creatinine 1.81 H (0.66-1.25) mg/dL Glucose 157 H (74-99) mg/dL POC Glucose (mg/dL) (70-110) mg/dL Calcium 7.1 L (8.4-10.2) mg/dL Microbiology - Last 24 Hours (Table) 12/19/23 16:44 Blood Culture - Final Blood Assessment and Plan Plan: Assessment: 1. Acute kidney injury secondary to ATN secondary to septic shock. Creatinine 0.86 on admission and up to 5.38 dated November 29, 2023. Urine output impr rayshawn, now nonoliguric. UA fairly benign. No hydronephrosis noted on imaging. Started on hemodialysis November 29, 2023 due to volume overload. Patient initially had a right femoral catheter placed which subsequently became occluded and a left tunneled femoral catheter was placed December 06, 2023. Renal function improving with creatinine 1.81 today. 2. Perforated small bowel status post exploratory laparotomy with abdominal washout, small bowel resection and J-tube replacement November 25, 2023. 3. A-fib with RVR. s/p amiodarone drip. Also received digoxin this admission. 4. Recently diagnosed gastric B-cell lymphoma. 5. Septic shock. Likely abdominal source. On IV antibiotics. Off vasopressors now. 6. Hypocalcemia secondary to acute kidney injury. Replaced. Improved. 7. Metabolic acidosis secondary to acute kidney injury and partially from compensation for underlying respiratory alkalosis. 8. Volume overload. Improved with diuresis and ultrafiltration. 9. Status post tracheostomy December 10, 2023. 10. Anemia. Component of chronic illness and acute blood loss. Received blood transfusion and DDAVP this admission. On Aranesp. 11. Respiratory alkalosis. 12. Hypernatremia from lack of oral water intake. Improved with D5W. Plan: Continue to hold hemodialysis. Last dialysis December 18, 2023. Stop D5W. 2 A of sodium bicarb IV push today. Avoid nephrotoxins. Preserved EF noted on echocardiogram. Phosphorus level 4.7 dated December 18, 2023. Continue to monitor for renal recovery. Case discussed with present at bedside. DC dialysis catheter later this week if renal function continues to improve.
[2023-12-25] MEDS: SODIUM BICARB 8.4% 50 ML SYR (1 MEQ/ML) IV STA (09:50)
[2023-12-25] MEDS: DEXTROSE 5%-0.45% NACL 1,000 ML IV SCH (11:25)
[2023-12-25 11:46] LABS: Glucose,Whole Blood 109 mg/dL (70-110)
--- NOTE | 2023-12-25 12:41 | P.PN ---
Subjective Progress Note Date: 12/25/23 Principal diagnosis: Acute hypoxic respiratory failure requiring intubation mechanical ventilation secondary to aspiration. This is a 73-year-old white male with history of chronic abdominal pain for the last 8 months has been treated with Protonix 40 mg daily for the last 3 months with no improvement. Patient had a 22 pound weight loss in the last [address] of the abdomen and pelvis 3 weeks ago showed thickening of the antral wall with pathological adenopathy posterior to the stomach suspicious of neoplasm. Today the patient underwent elective upper endoscopy to evaluate further, patient received IV sedation by anesthesia endoscope was inserted into the mouth, esop hagus was intubated without any difficulty there was evidence of large amount of liquid and solid food noted in the stomach suggestive of gastric outlet obstruction. Scope could not be advanced through the pylorus, however in the prepyloric area there was a large superficial ulceration identified with multiple biopsies were done from this area. The body cardia and fundus could not adequately visualize because of large amount of retained food in the stomach. Scope was withdrawn back to the stomach and upon careful examination the mucosa of the antrum body and cardia as well as the fundus appeared normal. Procedure was being performed and biopsies were done patient threw up and subsequently became hypoxic there was clearly evidence of witnessed aspiration anesthesia intubated the patient, procedure was terminated, and the patient was transferred to the ICU, this consult was initiated. Patient is now on assist- control rate of 20 tidal volume 500 FiO2 70% PEEP of 10 ABG is pending, earlier ABG showed profound hypoxia patient is on propofol at 50 mcg/kg/min, next ABG is pending. Chest x-ray showed chronic changes without evidence of acute pulmonary disease. 12/20/2023, the patient is being seen for a follow-up. More alert and awake compared to yesterday. He is able to move his fingers and toes on today's evaluation. Following commands. Nevertheless, his J tube has been clogged and was unable to utilize the tube that has been some leaks around the tube. No abdominal distention. No nausea or emesis. Hemodynamically stable. Will undergo hemodialysis today. He remains on pressure control mode of mechanical ventilation at rate of 16, pressure of 10, +5 PEEP with an FiO2 of 30%. Chest x-ray from today is essentially unchanged with a stable cavity in his right uppe r lobe. White cell count of 15.7, hemoglobin 7.2, platelet count is 203, blood gas showed a pH of 7.49 with a pCO2 of 33 and pO2 of 73. BUN is 88 with a creatinine 1.89 and sodium is at 141 with a potassium level of 4.1. He is producing adequate amount of urine output. Fluid balance has been -900 cc over the past 24 hours. Normotensive. Remains on a combination of Zosyn and daptomycin. Remains on Levemir insulin 24 units daily. This is currently on hold as the patient has not been able to obtain enteral feeding. Wound VAC still in place. 12/21/2023, the patient remains on the mechanical ventilator. Overnight, the patient experienced discomfort in his abdomen and he was restless. Based on that, the patient was placed on a higher dose of Precedex which is currently running at 0.6 mcg/kg/h. The patient was also asynchronous with the mechanical ventilator and based on that, the patient was switched to an AC mode and currently is at a rate of 16, tidal volume of 400, FiO2 of 30% with a PEEP of 5. The patient is adequately sedated for now. Chest x-ray remains unchanged. Tra cheostomy tube in place and the patient is having increased amount of respiratory secretions. J tube needs to be replaced today and this will be done by his general surgery as the tube remains clogged. Urine output is low order of 30 cc an hour. Afebrile. Remains on Zosyn and daptomycin. White cell count is 16.9, hemoglobin 7.4 and a platelet count of 280. Blood gas from today showed a pH of 7.46 with a pCO2 of 36 and pO2 of 82. Sodium levels of 144, BUN is 19 with a creatinine of 2.2 and a serum bicarb is at 23. The abdominal wound remains unchanged. RAYA drain is serosanguineous. 12/22/2023, patient remains on Precedex at 0.4 mcg/kg/min. Arousable. Communicates. Profoundly weak. Remains on the mechanical ventilator with a right lung abscess. SIMV mode mode rate of 16, tidal volume of 400, FiO2 30% with a PEEP of 5, with a pressure support of 8. Blood gas showed a pH of 7.46 with a pCO2 of 32 and a pO2 of 82. Chest x-ray remains unchanged with a right upper lobe cavitating lesion/opacity and a suspected lung abscess. This is rated Pseudomonas and the patient remains on IV Zosyn. He remains on daptomycin. Urine output is in order of 50 cc an hour.. The J-tube was unplugged yesterday. Nevertheless, the tube itself is malfunctioning and there is drainage around the tube requiring dressing changes the dressings being soakedConstantly. The patient's white cell count is 12.3 with a hemoglobin 7.7. Sodium is at 149, BUN 91 with a creatinine of 2.3. Bicarb is at 20. Undergoing hemodialysis periodically. Last hemodialysis was on 12/21/2023. Currently NPO. Abdominal wound is clean and the patient has a wound VAC in place. RAYA drain output is serosanguineous. Patient was seen today on 12/23/2023, remains in the ICU, intubated and mechanically ventilated. Patient is on IMV with pressure support/IMV 16, pressure support of 8, tidal volume 400, PEEP of 5. Patient seems to be doing well with that kind of mode of mechanical ventilation, ABG showed a pO2 of 76 pCO2 28 pH of 7.50. I changed his rate from 16-8 kept him otherwise on the same ventilator settings. Plan to gradually go down on the IMV rate until we can get him on pressure support of 8 and CPAP. Patient is requiring Precedex at 0.4 mcg/kg/h, he is on D5W at 50 cc/h. Remains on antibiotics in the form of daptomycin and Zosyn, chest x-ray continues to show bilateral airspace disease and right upper lobe lung abscess. Continues to have a bit of a leak from his J-tube being addressed by surgery has a wound VAC, and he had a RAYA drain. Mentation arce the patient is a bit more appropriate, opens his eyes, follows very simple instructions, seems to comprehend. Patient has a left brachial PICC line, he also has a left groin hemodialysis catheter. WBC count is 10.1 hemoglobin is 7 sodium is 149 potassium 4 chloride is 121 BUN is 86 creatinine 2.31. Blood sugar is 173. Remains on enteral feeding via J-tube, a bit of a leak is noted, and surgery is to address this. Sputum cultures have grown Klebsiella and Pseudomonas and remains on proper antibiotics Patient was seen and examined today on 12/24/2023, patient remains in the ICU, and mechanically ventilated. On IMV mode of 8 pressure support of 8 tidal volume 400 FiO2 30% and PEEP of 5 ABG showed a pO2 of 81 pCO2 32 pH of 7.45. Patient remains on daptomycin and Zosyn, remains on Precedex at 0.4 mcg/kg/h intermittently receiving Dilaudid for pain. Feeding arce is presently on hold, patient had a leak around the jejunostomy tube, surgery is recommending a trickle feed or TPN if could not use the J-tube. Patient is arousable follows simple instructions, and today I had a chance to get rid of the IMV mode, and I am recommending a pressure support of 8 and CPAP. For the last few hours the patient has been tolerating this mode of mechanical ventilation, however he is not quite ready to go to [facility] at this point. Chest x-ray continues to show significant opacity in the right upper lobe and airspace disease in the right lower lobe. Previously patient had a CT of the chest showing right upper lobe abscess. Again he remains on Zosyn and daptomycin.Labs today showed WBC count of 10.6 hemoglobin 7.8 sodium is 147, patient is now on D5W at 100 cc an hour his bicarb is 19 BUN 74 creatinine 2.08, gradually improving, his last hemodialysis was on the , nephrology is considering removing his dialysis catheter in the left groin and I believe that is appropriate patient was seen and examined today on 12/25/2023, remains in the ICU, intubated and mechanically ventilated. Patient had to be placed back on assist-control mode of mechanical ventilation yesterday, mostly because he developed s ignificant agitation and restlessness, and ongoing persistent cough with some air leak from the cough of that tracheostomy. Patient had to be sedated and he was placed on propofol and he remains on propofol at 50 mcg/kg/min. Maximal dose of Precedex yesterday could not calm him down, hence we had to transition him from pressure support/CPAP mode of mechanical ventilation to assist-control mode of mechanical ventilation and fully sedated him with propofol replacing Precedex. Today the patient is sedated, he is on assist-control rate of 16 tidal volume 400 FiO2 30% PEEP of 5 ABG showed a pO2 of 98 pCO2 30 pH of 7.45 chest x-ray is basically the same showing significant airspace disease in the right upper lobe and right lower lobe. Remains on daptomycin and Zosyn. His IV fluid was transitioned to D5 4 5 from D5W sodium today is 141. His urine output is about 40 to 50 cc/h, renal profile is improving with steady trending of creatinine down. Patient continues to have leakage around the jejunostomy tube. Patient is being followed by surgery no specific recommendation made except to continue the same and except the leak as it isLabs today showed WBC count of 11.5 hemoglobin 8.2 basic metabolic profile is normal BUN is 60 creatinine down to 1.81 Objective - Vital Signs Vital signs: Vital Signs Temp 96.8 F L 12/25/23 11:45 Pulse 90 12/25/23 12:13 Resp 35 H 12/25/23 11:45 BP 98/58 12/25/23 11:45 Pulse Ox 99 12/25/23 11:45 FiO2 30 12/25/23 11:56 Intake & Output 12/24/23 12/25/23 12/25/23 18:59 06:59 18:59 Intake Total 1987.740 6528.713 494.963 Output Total 785 980 125 Balance 640.021 9418.713 369.963 Weight 94.3 kg 94.3 kg Intake: IV 1550 2380 425 0.9 KVO 30 25 DAPTOmycin 600 mg In 50 Sodium Chloride 0.9% 50 ml @ 100 mls/hr IVPB Q48H [facility] Rx#:[id number] Dextrose 5% in Water 1, 100 000 ml @ 100 mls/hr IV . Q10H [facility] Rx#:[id number] Dextrose 5% in Water 1, 1250 1250 250 000 ml @ 125 mls/hr IV . Q8H [facility] Rx#:[id number] Lactated Ringers 1,000 ml 1000 @ 50 mls/hr IV .Q20H [facility] Rx#:[id number] Piperacillin-Tazobactam 3 100 .375 gm In Sodium Chloride 0.9% 100 ml @ 25 mls/hr IVPB Q12HR [facility] Rx #:[id number] Piperacillin-Tazobactam 3 100 .375 gm In Sodium Chloride 0.9% 100 ml @ 25 mls/hr IVPB Q8HR [facility] Rx# :[id number] Potassium Chloride 20 meq 200 In Water For Injection 1 100ml.bag @ 50 mls/hr IVPB Q2H [facility] Rx#: [id number] Intake, IV Titration 125.121 271.713 69.963 Amount Dexmedetomidine/0.9% NaCl 125.121 3.079 (Pmx) 400 mcg In Empty Bag 1 bag @ 0.2 MCG/KG/HR 4.925 mls/hr IV .[id number] [facility] Rx#:[id number] propofoL 1,000 mg In 268.634 69.963 Empty Bag 1 bag @ 15 MCG/ KG/MIN 8.685 mls/hr IV . [id number] [facility] Rx#:[id number] Output: Drainage 180 50 50 Right Abdomen 180 50 50 Urine 605 930 75 Other: Voiding Method Indwelling Catheter Indwelling Catheter ABP, PAP, CO, CI - Last Documented Arterial Blood Pressure 139/59 - Exam General: Revealed 73-year-old white male intubated, sedated, on propofol. Skin: Skin is warm and dry and no rashes or lesions are noted. Eye: Pupils are equal, round and reactive to light, extra-ocular movements are intact; there is normal conjunctiva bilaterally. Ears, nose, mouth and throat: There are moist mucous membranes and no oral lesions. Neck: The neck is supple, there is no tenderness or JVD. Tracheostomy is intact. No air leak noted today Cardiovascular: There is a regular rate and rhythm. No murmur, rub or gallop is appreciated. Respiratory: Crackles at the bases specially at the right base Gastrointestinal: no rebound, no guarding, no bowel sounds, positive leak noted around the jejunostomy tube Musculoskeletal: No deformities and no limitation range of motion other the patient seems to be generally weak. 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 Neurological: Could not assess patient is sedated on propofol Extremities: Trace of bipedal edema - Labs CBC & Chem 7: 12/25/23 07:47 12/25/23 07:47 Labs: Abnormal Lab Results - Last 24 Hours (Table) 12/24/23 12/25/23 12/25/23 Range/Units 17:10 00:10 05:37 WBC (3.8-10.6) k/uL RBC (4.30-5.90) m/uL Hgb (13.0-17.5) gm/dL Hct (39.0-53.0) % RDW (11.5-15.5) % Plt Count (150-450) k/uL Neutrophils # (1.3-7.7) k/uL ABG pCO2 30 L (35-45) mmHg ABG O2 Saturation 99.0 H (94-97) % Chloride (98-107) mmol/L Carbon Dioxide (22-30) mmol/L BUN (9-20) mg/dL Creatinine (0.66-1.25) mg/dL Glucose (74-99) mg/dL POC Glucose (mg/dL) 160 H 194 H (70-110) mg/dL Calcium (8.4-10.2) mg/dL 12/25/23 12/25/23 12/25/23 Range/Units 05:38 07:47 07:47 WBC 11.5 H (3.8-10.6) k/uL RBC 2.77 L (4.30-5.90) m/uL Hgb 8.2 L (13.0-17.5) gm/dL Hct 25.7 L (39.0-53.0) % RDW 18.3 H (11.5-15.5) % Plt Count 106 L (150-450) k/uL Neutrophils # 8.8 H (1.3-7.7) k/uL ABG pCO2 (35-45) mmHg ABG O2 Saturation (94-97) % Chloride 114 H (98-107) mmol/L Carbon Dioxide 18 L (22-30) mmol/L BUN 60 H (9-20) mg/dL Creatinine 1.81 H (0.66-1.25) mg/dL Glucose 157 H (74-99) mg/dL POC Glucose (mg/dL) 185 H (70-110) mg/dL Calcium 7.1 L (8.4-10.2) mg/dL Microbiology - Last 24 Hours (Table) 12/19/23 16:44 Blood Culture - Final Blood Assessment and Plan Assessment: Impression: Acute hypoxic respiratory failure requiring intubation mechanical ventilation secondary to aspiration. Status post tracheostomy on 12/10/2023 patient continues to have a cavitary lesion/lung abscess involving the right upper lobe. Status post J-tube placement 11/16/2023, multiple complications since then related to the J-tube placement requiring multiple surgeries. Ongoing leak around the J-tube, surgery is addressing not planning any surgical intervention at this point, and for feeding recommending either trickle feeds or TPN both. Acute peritonitis secondary to above, secondary to small bowel perforation with abdominal contamination Septic shock secondary to above Paroxysmal atrial fibrillation Acute kidney injury requiring hemodialysis secondary to sepsis and septic shock, last hemodialysis was on the , apparently patient is not requiring he modialysis since then and nephrology planning to discontinue his dialysis catheter from the left groin Weight loss secondary to non-Hodgkin's lymphoma Acute aspiration pneumonia/right upper lobe lung abscess Acute aspiration during upper endoscopy most likely secondary to gastric outlet obstruction secondary to non-Hodgkin's lymphoma based on the pathology from stomach biopsies 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 Today the patient will go on pressure support of 8 and CPAP not quite ready to be extubated. Critical illness polyneuropathy Metabolic encephalopathy Malfunctioning of the J-tube Recommendation: Continue ventilatory support, will keep the patient today on assist-control mode of mechanical ventilation Continue propofol, Precedex has been discontinued Nutritional support/trickle feeding or TPN as recommended by surgery patient may need another PICC line for TPN Cannot use J-tube because of ongoing leak, being addressed by surgery Continue antibiotics including daptomycin and Zosyn Continue to monitor renal profile Continue GI and DVT prophylaxis Updated the on his condition Remains critically ill Need for further dialysis Care time is over 30 minutes Will continue to follow Time with Patient: Greater than 30
[2023-12-25 13:25] LABS: Albumin 1.9 g/dL (3.5-5.0); Magnesium 1.6 mg/dL (1.6-2.3); Phosphorus 3.8 mg/dL (2.5-4.5)
[2023-12-25] MEDS: ANIDULAFUNGIN 200 MG in SODIUM CHLORIDE 0.9% 200 ML IVPB ONE (15:04)
--- NOTE | 2023-12-25 15:18 | P.PN ---
Subjective Progress Note Date: 12/25/23 CHIEF COMPLAINT: Abdominal pain HISTORY OF PRESENT ILLNESS: Patient remains in the ICU on mechanical vent ilation. Has tracheostomy. Patient placed back on assist-control mechanical ventilation yesterday due to significant agitation and persistent cough with air leak at the cuff of the tracheostomy. He is sedated with propofol. Patient continues to have leakage around the J-tube. Dr. Irby did place sutures this morning to hopefully decrease the drainage. [facility] denied transfer. Patient's tube feeds are currently off. Afebrile. WBC 11.5 Hgb 8.2 platelets 106 creatinine 1.81 PHYSICAL EXAM: VITAL SIGNS: Reviewed. GENERAL: no acute distress. HEENT: Tracheostomy site clean dry and intact ABDOMEN: Soft. Nondistended. Midline incision with wound VAC in place and intact. J-tube with drainage noted. Sutures are intact. ASSESSMENT: 1. 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 Status post J-tube placement and revision for small bowel obstruction 2. Abdominal wound dehiscence status post wound VAC placement 3. Status post tracheostomy PLAN: -Continue to monitor leakage from J-tube site -Tube feeds currently on hold -At this point, there is no recommendation for further surgical intervention as patient's overall prognosis is guarded and patient will likely not tolerate the procedure well. Physician Toll Bridge Operator note has been reviewed by physician. Signing provider agrees with the documented findings, assessment, and plan of care. Objective - Vital Signs Vital signs: Vital Signs Temp 96.8 F L 12/25/23 11:45 Pulse 90 12/25/23 12:13 Resp 35 H 12/25/23 11:45 BP 98/58 12/25/23 11:45 Pulse Ox 99 12/25/23 11:45 FiO2 30 12/25/23 11:56 Intake & Output 12/24/23 12/25/23 12/25/23 18:59 06:59 18:59 Intake Total 1242.725 6844.713 594.963 Output Total 785 980 125 Balance 467.352 5954.713 469.963 Weight 94.3 kg 94.3 kg Intake: IV 1550 2380 425 0.9 KVO 30 25 DAPTOmycin 600 mg In 50 Sodium Chloride 0.9% 50 ml @ 100 mls/hr IVPB Q48H [facility] Rx#:[id number] Dextrose 5% in Water 1, 100 000 ml @ 100 mls/hr IV . Q10H [facility] Rx#:[id number] Dextrose 5% in Water 1, 1250 1250 250 000 ml @ 125 mls/hr IV . Q8H [facility] Rx#:[id number] Lactated Ringers 1,000 ml 1000 @ 50 mls/hr IV .Q20H [facility] Rx#:[id number] Piperacillin-Tazobactam 3 100 .375 gm In Sodium Chloride 0.9% 100 ml @ 25 mls/hr IVPB Q12HR [facility] Rx #:[id number] Piperacillin-Tazobactam 3 100 .375 gm In Sodium Chloride 0.9% 100 ml @ 25 mls/hr IVPB Q8HR [facility] Rx# :[id number] Potassium Chloride 20 meq 200 In Water For Injection 1 100ml.bag @ 50 mls/hr IVPB Q2H [facility] Rx#: [id number] Intake, IV Titration 125.121 271.713 169.963 Amount Dexmedetomidine/0.9% NaCl 125.121 3.079 (Pmx) 400 mcg In Empty Bag 1 bag @ 0.2 MCG/KG/HR 4.925 mls/hr IV .[id number] [facility] Rx#:[id number] propofoL 1,000 mg In 268.634 169.963 Empty Bag 1 bag @ 15 MCG/ KG/MIN 8.685 mls/hr IV . [id number] [facility] Rx#:[id number] Output: Drainage 180 50 50 Right Abdomen 180 50 50 Urine 605 930 75 Other: Voiding Method Indwelling Catheter Indwelling Catheter ABP, PAP, CO, CI - Last Documented Arterial Blood Pressure 139/59 - Labs CBC & Chem 7: 12/26/23 04:10 12/26/23 04:10 Labs: Abnormal Lab Results - Last 24 Hours (Table) 12/24/23 12/25/23 12/25/23 Range/Units 17:10 00:10 05:37 WBC (3.8-10.6) k/uL RBC (4.30-5.90) m/uL Hgb (13.0-17.5) gm/dL Hct (39.0-53.0) % RDW (11.5-15.5) % Plt Count (150-450) k/uL Neutrophils # (1.3-7.7) k/uL ABG pCO2 30 L (35-45) mmHg ABG O2 Saturation 99.0 H (94-97) % Chloride (98-107) mmol/L Carbon Dioxide (22-30) mmol/L BUN (9-20) mg/dL Creatinine (0.66-1.25) mg/dL Glucose (74-99) mg/dL POC Glucose (mg/dL) 160 H 194 H (70-110) mg/dL Calcium (8.4-10.2) mg/dL Albumin (3.5-5.0) g/dL 12/25/23 12/25/23 12/25/23 Range/Units 05:38 07:47 07:47 WBC 11.5 H (3.8-10.6) k/uL RBC 2.77 L (4.30-5.90) m/uL Hgb 8.2 L (13.0-17.5) gm/dL Hct 25.7 L (39.0-53.0) % RDW 18.3 H (11.5-15.5) % Plt Count 106 L (150-450) k/uL Neutrophils # 8.8 H (1.3-7.7) k/uL ABG pCO2 (35-45) mmHg ABG O2 Saturation (94-97) % Chloride 114 H (98-107) mmol/L Carbon Dioxide 18 L (22-30) mmol/L BUN 60 H (9-20) mg/dL Creatinine 1.81 H (0.66-1.25) mg/dL Glucose 157 H (74-99) mg/dL POC Glucose (mg/dL) 185 H (70-110) mg/dL Calcium 7.1 L (8.4-10.2) mg/dL Albumin (3.5-5.0) g/dL 12/25/23 Range/Units 12:52 WBC (3.8-10.6) k/uL RBC (4.30-5.90) m/uL Hgb (13.0-17.5) gm/dL Hct (39.0-53.0) % RDW (11.5-15.5) % Plt Count (150-450) k/uL Neutrophils # (1.3-7.7) k/uL ABG pCO2 (35-45) mmHg ABG O2 Saturation (94-97) % Chloride (98-107) mmol/L Carbon Dioxide (22-30) mmol/L BUN (9-20) mg/dL Creatinine (0.66-1.25) mg/dL Glucose (74-99) mg/dL POC Glucose (mg/dL) (70-110) mg/dL Calcium (8.4-10.2) mg/dL Albumin 1.9 L (3.5-5.0) g/dL Microbiology - Last 24 Hours (Table) 12/19/23 16:44 Blood Culture - Final Blood Assessment and Plan Assessment: 73 yo male w/ j tube insertion -leaking around site -attempted suture fixation -will follow up in am
[2023-12-25 17:22] LABS: Appearance,Urine Turbid (Clear); Bacteria,Urine Occasional /hpf; Bilirubin,Urine Negative (Negative); Blood,Urine Moderate (Negative); Budding Yeast,Urine Many /hpf; Color,Urine Yellow; Glucose,Urine (UA) Negative (Negative); Hyphae Yeast, Urine Rare /hpf; Ketones,Urine Negative (Negative); Leukocyte Esterase,Urine Small (Negative); Nitrite,Urine Negative (Negative); Protein,Urine Trace (Negative); RBC,Urine 15 /hpf (0-5); Specific Gravity,Urine 1.012 (1.001-1.035); Urobilinogen,Urine <2.0 mg/dL (<2.0); WBC,Urine 2 /hpf (0-5)
[2023-12-25 17:49] LABS: Glucose,Whole Blood 36 mg/dL (70-110)
[2023-12-25 18:03] LABS: Glucose,Whole Blood 36 mg/dL (70-110)
[2023-12-25] MEDS: DEXTROSE 50% SYRINGE 50 ML IVP PRN (18:03)
[2023-12-25] MEDS: MVI, ADULT NO.4 WITH VIT K 10 ML, TRACE (CONC-1ML/DOSE) 1 ML, SODIUM ACETATE 30 MEQ, PO... IV ONE (18:04)
[2023-12-25 18:16] LABS: Glucose,Whole Blood 129 mg/dL (70-110)
[2023-12-25] MEDS: SODIUM CHLORIDE 0.9% 1,000 ML IV SCH (18:52)
--- NOTE | 2023-12-25 19:47 | P.PN ---
Progress Note - Text Progress Note Date: 12/25/23 Chief Complaint: Aspirated This is a 73-year-old patient, follows with Dr. Patricia Deal. Patient was seen this morning in the ICU. Patient's and daughter at the bedside. History obtained predominantly by the . Patient been having trouble with his stomach symptoms for close to 8 months. Patient underwent EGD by Dr. Sahara Cheng yesterday. Patient was found to have ulcerated around the antrum and obstruction to the pylorus. A lot of retained food was found. Patient aspirated. Had to be intubated and brought to the ICU. On a Levophed drip. FiO2 50 and a PEEP of 6. Patient had been losing weight lost about 25 pounds. Previously has a history of mitral valve prolapse. November 13: ICU. Patient remains on Precedex drip and propofol drip. Did not do well attempted extubation yesterday. Patient been off Levophed. NG tube to suction. Spoke to patient's and son at the bedside. Biopsy results awaited. Hemoglobin dropped to 6.9 this morning. Get a unit of blood. November 14: ICU. Up in a chair. Extubated yesterday. NG tube to suction. at the bedside. 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 Oncology was consulted. They have ordered a port. Results discussed with Dr. Sahara Cheng. General surgery was consulted for J-tube placement. Discussed with at the bedside. Patient getting IV fluids, IV Zosyn,. Patient has been on IV amiodarone for A-fib-back in sinus rhythm. Multiple PACs. Did receive unit of blood yesterday. Also IV ferric gluconate. November 15: ICU. Patient earlier today underwent jejunostomy tube placement and a port placement. Patient awake. Answering questions. NG tube to suction present. Updated patient's . Patient remains on IV amiodarone and IV Zosyn. November 16: ICU. Up in the chair. NG tube present but not to suction. Trickle feeding through the jejunostomy tube should be started today. Dietitian has been on board. IV Zosyn to continue. Patient's and his sister at the bedside. Discussed. Also spoke with Dr. Serna. Given patient has no other predisposing cardiac factors for the A-fib except acute illness. His LV function is normal. Left atrium is normal. He has already been loaded with IV amiodarone. Will switch him to oral Lopressor 12.5 twice daily. Hence will DC amiodarone. Patient yesterday had wheezing was put on bronchodilators steroids per pulmonary. November 17: Propped up in bed. NG tube was discontinued. Sinus rhythm. Remains NPO. Getting G-tube feeding at 40 cc an hour. Dietitian following. Get arrangements done for DC home tomorrow including tube feeding. Increase activity discussed with patient and elder daughter at the bedside. Still requiring oxygen. Incentive spirometry. November 18: Patient up in recliner. Earlier today spoke to professor of social work David. Informed patient is rather weak and will be going to the [facility]. Looking at authorization. Denae came to the room and spoke to patient his and his daughter. They are very keen to take the patient home as 3 daughters all nurses and they will take care of him at home. Patient earlier today to abdominal cramping and some loose stools.'s tube feeding was held. Told the nurse to start back at the rate of 40 cc an hour. He was before the getting it at 55 cc an hour. Incentive spirometry was again emphasized. Patient remains on 4 L of oxygen. November 19: I saw the patient this morning. Hence I am in the evening. Morning was sitting with his sons. Has some edema. Lungs had crackles I gave him 40 mg of Lasix. He did make good urine. Tube feeding was held from the previous evening of because of abdominal cramping. Acute abdominal series showed nonspecific bowel gas pattern and SBO to be ruled out. Family and patient was updated. Told him discharge will depend on day by day. Later this afternoon CT scanAnd abdomen pelvis done. Showed small bowel to be 3 point centimeter dilated. Some anasarca. Gastric findings. Gallstones. Later spoke to Dr. Irby from general surgery. They will further review and decide about further plan of action. Will give further dose of IV Lasix because of fluid overload from likely hypoalbuminemia and IV fluids previously received. Patient may take his pills by mouth. Total time spent today about 1 hour with over 40 minutes of discussion. Patient did state his breathing is better after Lasix this morning. November 20: Saw the patient this morning. was present. Patient received 2 more doses of Lasix. Diuresed well. Breathing much better. Lungs are sounding better. Discussed with Dr. Zepeda other surgeon. He is taking 3 cc out of the balloon and the gastrostomy tube. Started trickle feeding at 5 cc an hour. Will see how this does. Later in the day ran into the and the daughter again. Did update them on the same. Dilaudid was discontinued yesterday but morphine was ordered by surgery for patient having pain. Concerns about GI issues with that we will DC the morphine. As family does not want the same. November 21: Patient reclining bed. Tired. Several family members at the bedside. Including his and eldest daughter. Patient started on trickle feed yesterday at 5 cc an hour. This morning he has been on 10 cc an hour. Still having some loose stools. C. difficile was ordered. Patient on 2 L of nasal cannula. Has diuresed well. Will give an additional dose of Lasix today. If C. difficile is negative and the diarrhea is from the tube feedings we may have to use a fecal management system to keep him comfortable. Otherwise patient remains NPO. Dietitian is following the patient. Care was discussed length with patient the and daughter at the bedside. Questions answered. Liquid Tylenol has been added for abdominal pain. Avoid narcotics. Elevated white count likely from Solu-Medrol 11/23/2023--patient was feeling better today. Multiple family member at bedside. No issues overnight. Normal saline at 10 cc an hour, tube feeding at 20 cc an hour, remains on Zosyn, on 3 L oxygen. Afebrile. Heart rate 62, respiratory rate 16, blood pressure 114/67, saturating 91% on 3 L. WBCs 14.5, 9.7 hemoglobin. Platelet 242. BMP is unremarkable. Pulmonary and general surgery following. General surgery recommended to continue tube feeds at 20 cc/h. 11/24/2023--patient reported significant abdominal discomfort, also noted to have leak around G-tube. General surgery is following, evaluated the patient at bedside, adjusted tube feeds. Also reported having diarrhea, on 2 L oxygen, went up to 5 L. Blood pressure was low, 500 mL fluid bolus with close monitoring of respiratory status ordered. Currently on DuoNebs, Solu-Medrol, will continue Zosyn. Chest x-ray showed a left lower lobe infiltrate. Abdominal x-ray showed multiple air-fluid levels. CT abdomen showed multiple dilated small bowel loops, consistent with obstruction, pneumoperitoneum, cholelithiasis and ascites. WBCs 14.1, platelet 255, hemoglobin 8.9. NG tube in place. Family at bedside. patient transferred to SICU for close monitoring. 11/25/23--patient is currently in the ICU, required Levophed overnight due to low blood pressure, low urine output with creatinine trending up. Nephrology following. Professor Of Theatre also following. Patient remains n.p.o., NG tube in place, following NG tube insertion patient had total of 2 L output, J-tube was draining approximately 200 cc over last 8 hours, continues to have abdominal pain and abdominal tenderness. Patient on IV fluids. Currently on 4 L oxygen. WBCs 8.2, hemoglobin 12.3, platelet 188. Chest x-ray earlier today showed right sided port and a stable left lung airspace disease, NG tube in place. Patient currently on Zosyn, on IV Dilaudid for pain control, on IV Solu-Medrol. General surgery planning for OR today, started on TPN. 11/26/23--patient was seen and examined today. Patient is currently sedated, intubated on mechanical ventilation. Family at bedside. Patient underwent ex lap, abdominal washout, small bowel resection with new feeding jejunostomy tube placement yesterday, small bowel was noted to be perforated with significant contamination of abdominal cavity. Patient is currently on vancomycin and Zosyn. Creatinine went up to 2.85, nephrology following, recommended to continue IV fluids, avoid nephrotoxin Preserved EF on echocardiogram.. Patient currently on Levophed, vasopressin in the ICU for close monitoring. Patient is afebrile, heart rate 122, blood pressure 129/76, currently on mechanical ventilation, sedated. November 26: ICU. Intubated. FiO2 60 and a PEEP of 5. Drips include IV amiodarone. Heart rate was up early did get fired microgram of IV digoxin and 2.5 mg of IV Lopressor. Did drop her blood pressure bit. Urine output was low. Received 80 mg of IV Lasix. Ahmet to 150 cc. Other drips include IV propofol, vasopressin, Levophed. TPN was started yesterday. Antibiotics include IV Zosyn and vancomycin. Patient has a J-tube to drainage to gravity. Spoke to patient's younger daughter and at the bedside. Prognosis guarded. Continue current treatment plan. Chest x-ray shows right lower lobe consolidation. Small pleural effusion. November 27: ICU. Intubated. FiO2 55 and a PEEP of 5. Antibiotics include IV vancomycin. Drips include Levophed at a small dose, IV vasopressin, propofol, amiodarone. Patient converted to sinus rhythm this morning. Getting TPN and normal saline at 75 cc an hour. Urine output about 25 cc an hour. RAYA drain put out about 260 cc last 12 hours that is last overnight babysitter. NG tube with bilious output. And also GI J-tube output to gravity. Spoke to patient's and daughter at the bedside. They understand patient still not out of the kee. Platelets have dropped-therefore probably Zosyn stopped. November 28: ICU. Intubated. FiO2 55 and a PEEP of 5. Patient is in sinus rhythm. Seen this morning. Due for dialysis catheter this afternoon. Urine output about 15 to 20 cc an hour. Patient is on IV Lasix 80 mg every 12. Saline is KVO. Drips include IV propofol vasopressin. Patient having significant output through the RAYA drain and the jejunostomy tube to drainage. Creatinine had been getting worse. Patient's at the bedside. Understands patient's remains critically ill. Hemoglobin is down to 7. Given that patient's pain hypotensive, and on vasopressin we will give a unit of blood with dialysis. Getting TPN antibiotic changed to IV meropenem November 29: ICU. Intubated. FiO2 55 and a PEEP of 5. Remains in sinus rhythm. Getting TPN. Dialyzed yesterday and this morning. About 1000 cc removed. Urine output about 50 cc an hour. Patient is on IV propofol. Off vasopressin. Still having significant output through the RAYA drain and jejunostomy tube. Patient received a second unit of blood yesterday. Patient's and daughter at the bedside. I did discuss guarded prognosis. Did asked them to revisit CODE STATUS.. Getting IV meropenem. November 30: ICU. Intubated. Did get a sedation holiday t today. Back on propofol. Getting TPN. Still getting IV Lasix. Fair urine output. Jejunostomy tube in last 8 hours was about 30 cc output. RAYA drain in the 8 hours had about 180 cc output. Telemetry shows sinus rhythm. NG tube has low intermittent suction with negative output. On the vent with FiO2 40 and a PEEP of 5. No hemodialysis today. Discussed with the and eldest daughter at the bedside. IV meropenem-patient's sputum had grown Citrobacter freundii and Pseudomonas aeruginosa. December 01: ICU. Intubated. Jejunostomy tube to gravity. Only 10 cc output in last 24 hours. RAYA drain. About 190 cc last 6 hours. Nasogastric tube to low intermittent suction. Minimal output. Patient is on a small dose of propofol 5 mics. Telemetry shows sinus rhythm. Patient started on small dose of Cleviprex this morning. Blood pressure. Getting TPN. FiO2 35 and PEEP of 5. Discussed with the at the bedside. Hemodialysis today December 02: ICU. Patient remains intubated. FiO2 35 PEEP of 5. Patient is on IV propofol. IV Cleviprex was discontinued yesterday. Also remains on TPN. Telemetry shows sinus rhythm. NG tube is good no output. Still significant output through the RAYA drain. Jejunostomy tube has minimal output. Patient had hemodialysis today 2 L of fluid was removed. Oral half liters yesterday. Patient getting a sedation holiday. General Surgery started the patient on trickle feeding at 10 cc an hour. I did speak to patient's at the bedside. Prognosis remains guarded but there is some improvement. December 03: ICU. Intubated. FiO2 35 PEEP of 5. Drips include IV propofol and Precedex. Getting TPN. Telemetry shows sinus rhythm. Remains on IV Lasix 80 mg twice a day. IV meropenem. Because patient gets easily agitated when transitioning off propofol he has been switched over to Precedex. For hemodialysis today. December 04: ICU. Intubated. FiO2 35 and a PEEP of 5. Patient been taken off propofol is on Precedex. Telemetry sinus rhythm. J-tube with minimal output. RAYA drain with decreased output. NG tube to suction minimal output. Family wanted to hold off trickle feeding until cleared by oncology. Which he did today. Trickle feeding will be started today. Spoke to patient's and one of the daughters at the bedside. Dr. Russ is spoken to the earlier this point they want to do further tracheostomy tube. December 05: ICU. Intubated. FiO2 35 PEEP of 5. Patient remains on Precedex and PPN. Patient's dialysis catheter was not functioning is getting another [address] Bobby this afternoon. Remains on IV meropenem. Has a RAYA drain in the jejunostomy tube to gravity. NG tube to low intermittent suction. No family at the bedside. December 06: ICU. Intubated. FiO2 35 PEEP of 5. RAYA drain putting out about approximately 120 cc per shift. Patient on IV Precedex. FiO2 35 PEEP of 5. Telemetry-sinus rhythm. Patient occasionally been put on small dose of Levophed specially for hemodialysis getting it today. Also started on midodrine for low blood pressure. Tolerating tube feeding at 10 cc an hour. Also had a bowel movement. Mentation has not improved. Even with sedation holiday. Neurology consulted. CT brain shows no acute process. December 07: ICU. Intubated. FiO2 35 PEEP of 5. Telemetry-sinus rhythm. NG tube to suction low intermittent minimal output. Getting TPN. Tube feeding at 20 cc an hour. RAYA drain averaging over 100 cc per shift. Remains on Precedex. EEG was done today. Discussed with at the bedside. Family is currently not inclined for tracheostomy tube today. Day 13 of being intubated December 08: ICU. Intubated. FiO2 35 PEEP of 5. Patient is put on back on propofol per cement car dumper Dr. BINGHAM. EEG did show some potential for spikes was put on Keppra by neurology. Telemetry shows sinus rhythm. NG tube to suction with no output. Tube feeding was put on hold because of questionable discharge on the site. Being restarted today. RAYA drain is 150 cc last 12-hour shift. Patient does open eyes. Family has decided to proceed with tracheostomy and surgery has been consulted for the same. Spoke to the at the bedside. For hemodialysis today. December 09: ICU. Intubated FiO2 35 PEEP of 5. Patient seen this morning. Pending tracheostomy placement this afternoon. Remains NPO. G-tube feeding was held overnight. RAYA drain putting out about 100 cc per shift. Received a unit of blood for hemoglobin of 6.6. On 25 mics of propofol. Getting TPN and meropenem. Spoke to the at the bedside. Patient became hypotensive with dialysis yesterday. Levophed had to be given. Only 800 cc were removed yesterday. No hemodialysis today. December 10: ICU . FiO2 35, PEEP 5. Tracheostomy was done yesterday by Dr. Ewing. G-tube feeding was started today at 10 cc an hour. Dietitian following. RAYA drain 12-hour shift overnight put out about 30 cc. Patient hemodialysis to day about 1 L removed. Patient has a sacral stage II decub with a dressing. On propofol 20 mics. Spoke to at the bedside. TPN. Meropenem was discontinued yesterday. December 11: ICU. FiO2 35 PEEP of 5. Tracheostomy. NG tube was discontinued. No hemodialysis today. Telemetry shows sinus rhythm. J-tube feeding at 40 cc an hour. TPN was discontinued. Patient has been off propofol also. PICC line in place. Patient had a EEG done today. Spoke to patient's elder daughter at the bedside. May open eyes occasionally. Not really following commands December 12: 73-year-old white male with history of chronic abdominal pain for the last 8 months has been treated with Protonix 40 mg daily for the last 3 months with no improvement. Patient had a 22 pound weight loss in the last [address] of the abdomen and pelvis 3 weeks ago showed thickening of the antral wall with pathological adenopathy posterior to the stomach suspicious of neoplasm. Today the patient underwent elective upper endoscopy to evaluate further, patient received IV sedation by anesthesia endoscope was inserted into the mouth, esophagus was intubated without any difficulty there was evidence of large amount of liquid and solid food noted in the stomach suggestive of gastric outlet obstruction. Scope could not be advanced through the pylorus, however in the prepyloric area there was a large superficial ulceration identified with multiple biopsies were done from this area. The body cardia and fundus could not adequately visualize because of large amount of retained food in the stomach. Scope was withdrawn back to the stomach and upon careful examination the mucosa of the antrum body and cardia as well as the fundus appeared normal. Procedure was being performed and biopsies were done patient threw up and subsequently became hypoxic there was clearly evidence of witnessed aspiration anesthesia intubated the patient, procedure was terminated, and the patient was transferred to the ICU, this consult was initiated. Patient is now on assist- control rate of 20 tidal volume 500 FiO2 70% PEEP of 10 ABG is pending, earlier ABG showed profound hypoxia patient is on propofol at 50 mcg/kg/min, next ABG is pending. Chest x-ray showed chronic changes without evidence of acute pulmonary disease. 12/14/2023 Patient remains in the ICU, generally weak Patient s/p tracheostomy G-tube in place Patient still has fever and mild tachycardia but tachycardia is improving, leukocytosis improving as well. Hemoglobin 8.1. Creatinine 3.0 and nephrology team on the case. He has mild transaminitis. He was getting Zosyn which is held now, nowCalcitonin is pending 12/14 Patient shon in the ICU, he is still encephalopathic and does not follow command. Neurology service following closely. He is status post tracheostomy. Also J-tube His abdomen looks soft and on exam he has mild coarse secretions. Has a Abarca catheter with clear urine His pro- Calcitonin is still high but trending down 3.0 down to 1.9 No fever this morning WBC slightly less at 16.3 Patient currently off antibiotic He is getting steroids IV Solu-Medrol which might contribute to his leukocytosis. Also he is on IV Keppra by neurologist 12/14 Patient remains confused in the ICU calm, he had a good night per family member and staff. Tracheostomy in place Patient has occasional coughing spells, patient also developed some partial wound dehiscence in his abdomen, surgery team are aware and are going to evaluate the patient Patient also has positive blood culture from 12/13: Gram-positive cocci in clusters. Patient received one-time dose of IV vancomycin. Patient also had fever 2 days ago, leukocytosis and total elevated pro- Calcitonin. Therefore we are going to consult infectious disease team. As his antibiotic Zosyn was stopped few days ago. Currently patient KVO He has good urine output December 16: ICU. Trach. Congested. Requiring suctioning. No hemodialysis today. Getting G-tube feeding at 50 cc an hour. FiO2 30 and a PEEP of 5. On IV Precedex. Eyes open. Does follow commands. Weakness in the limbs. Spoke to at the bedside. Sputum positive for Klebsiella oxytoca and Pseudomonas aeruginosa. December 17: ICU. On trach. Currently cough with increased secretions requiring suctioning. Adding scopolamine patch. Very much clear secretion. CT scan is showing right upper lobe lung abscess. G-tube feeding at 50 cc an hour. Hemodialysis today. RAYA drain putting out about 140 cc a shift. Serous. Has been midline incision wound dehiscence. Wound VAC was placed on it. Stage II ulcer. Patient is on Precedex drip 0.15 mics. Urine output is good about 6200 cc an hour. Spoke to the at the bedside. Patient currently not stable for transfer to LTAC. No limb movements. PT OT on the case. otherwise awake does follow simple commands by face December 18: ICU. Patient seen this afternoon. Because of pain getting IV Dilaudid. No nasal cannula on room air. Does move about his head. Telemetry shows sinus rhythm. FiO2 30 and a PEEP of 5. Patient started on scopolamine patch yesterday has decreased secretions today. Good urine output. Tube fee ding at 60 cc an hour. Wound VAC on incisional would be high since in place. RAYA drain continues to make output. No hemodialysis today December 19: ICU. Patient was seen earlier today. FiO2 30 and a PEEP of 5. Sinus rhythm. Awake. Does follow with eyes. Tube feeding got obstructed tube feedings held for now. Increasing oozing from the incision drainage site. at the bedside. Wound VAC remains in place. Good urine output. Dialysis held today. December 20: ICU. Per nephrology no dialysis today. 1 L fluid bolus given. J- tube was replaced over the wire by Dr. Ewing from surgery. On Precedex 0.6 mcg. FiO2 30 and a PEEP of 5 on the vent. RAYA drain putting out of around 100 cc per shift. at the bedside. Drainage through the abdominal incision wound. CT scan abdomen showed tube placement in the small bowel. Stable large right lower quadrant mass with a fluid level. December 21: ICU. No dialysis today. Patient started on trickle feeding through the J-tube yesterday. He started leaking around the J-tube site. Tube feeding was held. Dressings were placed. Wound VAC remains on the incision. Still having output through the RAYA drain. Patient remains on Precedex 0.4 mcg. FiO2 30 and a PEEP of 5. Sinus rhythm. at the bedside. December 22: ICU. Patient was seen this morning today by me. No dialysis today. Patient's and daughter at the bedside. FiO2 30 and a PEEP of 5. Sinus rhythm. Still having significant secretions through the tracheostomy tube. On Precedex 0.4 mcg. Getting D5W IV fluids. Tube feeding remains to be on hold since yesterday. Still output of RAYA drain. Awaiting input from surgery. Discussed with the and daughter. December 23: ICU. Saw the patient this afternoon. Because of good output of urine dialysis has been discontinued. Telemetry shows sinus rhythm. FiO2 30 and a PEEP of 5. RAYA output has been around 8200 cc an hour. Good urine output. Patient does have very slight movement of the limbs. Wound VAC is putting out about 20 cc per shift. Yesterday when trickle feeding was started patient's J- tube drainage also started leaking around the insertion site. Tube feeding was held. Patient remains on IV Zosyn and Precedex at 0.3 mcg. I had a very lengthy discussion with patient's daughter and at the bedside overall guarded prognosis. Later surgery spoke to the family, and then the nurse called me that family was wanting transferred to [facility]. I spoke to Dr. Irby. They felt they could not offer anything more at this point. I did call the [facility] transfer felt hat steamer. Gave them the reason for transfer. Later in the ICU nurse informed me through [employer] that [facility] had declined the transfer. Total time spent today about 50 minutes with over 30 minutes of discussion. December 24: ICU. Patient is doing not too well. Sinus rhythm. Drips include norepinephrine and IV propofol. Surgery did put 2 stitches around the J-tube insertion site. Started on TPN today. FiO2 30 PEEP of 5. Patient became hypothermic put on a Manjit hugger. Also hypoglycemic. Decreased urine output. IV fluids increased. Patient's son was at the bedside. I did speak to patient's eldest daughter outside in the waiting room. Did tell the patient doing very poorly. I did try to call the on the phone number she has gone home. Started an IV antifungal today. Active Medications Acetaminophen (Acetaminophen Tab 325 Mg Tab) 650 mg PO Q4HR PRN PRN Reason: Fever and/ or Pain Last Admin: 12/09/23 20:09 Dose: 650 mg Acetaminophen (Acetaminophen Oral Susp (Peds) 3,840 Mg/120 Ml Bottle) 480 mg PO Q4HR PRN PRN Reason: Fever Albuterol/Ipratropium (Ipratropium-Albuterol 3 Ml Neb) 3 ml INHALATION RT-QID [facility] Last Admin: 12/25/23 19:41 Dose: 3 ml Albuterol/Ipratropium (Ipratropium-Albuterol 3 Ml Neb) 3 ml INHALATION RT-Q2H PRN PRN Reason: Shortness Of Breath Or Wheezing Last Admin: 12/03/23 03:45 Dose: 3 ml Chlorhexidine Gluconate (Chlorhexidine Gluconate 15 Ml Cup) 15 ml MUCOUS MEM BID [facility] Last Admin: 12/25/23 08:40 Dose: 15 ml Darbepoetin Scooby (Darbepoetin Scooby 40 Mcg/0.4 Ml Syringe) 40 mcg SQ Q7D NIRMAL Last Admin: 12/24/23 18:13 Dose: 40 mcg Dextrose/Water (Dextrose 50% Syringe 50 Ml) 25 ml IVP PER PROTOCOL PRN; Protocol PRN Reason: Hypoglycemia Last Admin: 12/24/23 01:01 Dose: 25 ml Dextrose/Water (Dextrose 50% Syringe 50 Ml) 50 ml IVP PER PROTOCOL PRN; Protocol PRN Reason: Hypoglycemia Last Admin: 12/25/23 18:03 Dose: 50 ml Hydromorphone HCl (Hydromorphone 0.5 Mg/0.5 Ml Syringe) 0.25 mg IVP Q3H PRN PRN Reason: Pain Last Admin: 12/24/23 16:23 Dose: 0.25 mg Sodium Chloride (Saline 0.9%) 1,000 mls @ 20 mls/hr IV .Q24H NIRMAL Last Admin: 12/25/23 11:25 Dose: Not Given Piperacillin Sod/Tazobactam (Sod 3.375 gm/ Sodium Chloride) 100 mls @ 25 mls/hr IVPB Q12HR NIRMAL; Protocol Last Admin: 12/25/23 08:40 Dose: 25 mls/hr Daptomycin 600 mg/ Sodium (Chloride) 50 mls @ 100 mls/hr IVPB Q48H [facility]; Protocol Last Admin: 12/25/23 09:50 Dose: 100 mls/hr Propofol 1,000 mg/ IV Solution 100 mls @ 8.685 mls/hr IV .[id number] [facility]; Protocol Last Admin: 12/25/23 15:45 Dose: 50 mcg/kg/min, 28.95 mls/hr Norepinephrine Bitartrate 4 mg (/ Sodium Chloride) 254 mls @ 11.03 mls/hr IV .Q23H2M [facility]; Protocol Last Admin: 12/25/23 18:59 Dose: 0.03 mcg/kg/min, 11.03 mls/hr Anidulafungin 100 mg/ Sodium (Chloride) 130 mls @ 84 mls/hr IVPB DAILY NIRMAL; Protocol Parenteral Vitamin Supplement 10 ml/ Zinc/Copper/Manganese/Selenium 1 ml/ Sodium Acetate 30 meq/ Potassium Acetate 20 meq/ Magnesium Sulfate 1 gm/Calcium Gluconate 1 gm/ Amino Acids/Dextrose 1,048 mls @ 30 mls/hr IV .Q24H ONE Stop: 12/26/23 15:59 Last Admin: 12/25/23 18:04 Dose: 30 mls/hr Parenteral Vitamin Supplement 10 ml/ Zinc/Copper/Manganese/Selenium 1 ml/ Sodium Acetate 30 meq/ Potassium Acetate 20 meq/ Magnesium Sulfate 1 gm/Calcium Gluconate 1 gm/ Amino Acids/Dextrose 1,048 mls @ 65 mls/hr IV .BY DURATION NIRMAL Sodium Acetate 30 meq/Potassium Acetate 20 meq/Magnesium Sulfate 1 gm/Calcium Gluconate 1 gm/ Amino Acids/Dextrose 1,037 mls @ 65 mls/hr IV .BY DURATION [facility] Sodium Chloride (Saline 0.9%) 1,000 mls @ 50 mls/hr IV .Q20H [facility] Last Admin: 12/25/23 18:52 Dose: 50 mls/hr Insulin Aspart (Insulin Aspart (Novolog) 100 Unit/Ml Vial) 0 unit SQ 0000,0600,1200,1800 [facility]; Protocol Last Admin: 12/25/23 18:03 Dose: Not Given Levetiracetam (Levetiracetam Iv 500 Mg/5 Ml Vial) 250 mg IVP Q24HR NIRMAL Last Admin: 12/25/23 08:39 Dose: 250 mg Lorazepam (Lorazepam 2 Mg/Ml Inj) 1 mg IV Q4HR PRN PRN Reason: Anxiety Last Admin: 12/24/23 16:01 Dose: 1 mg Metoprolol Tartrate (Metoprolol Tartrate 5 Mg/5 Ml Vial) 2.5 mg IVP Q6HR PRN PRN Reason: Heart Rate - HIGH Last Admin: 11/27/23 08:25 Dose: 2.5 mg Miscellaneous Information (Magnesium Replacement Protocol 1 Each Misc) 1 each MISCELLANE DAILY PRN; Protocol PRN Reason: Per Protocol Multi-Ingredient Ointment (Zinc Oxide 20% Oint 28.4 Gm Tube) 1 applic TOPICAL BID PRN; Protocol PRN Reason: Skin Irritation Naloxone HCl (Naloxone 0.4 Mg/Ml 1 Ml Vial) 0.2 mg IV Q2M PRN PRN Reason: Opioid Reversal Pantoprazole Sodium (Pantoprazole 40 Mg/10 Ml Vial) 40 mg IVP BID NIRMAL Last Admin: 12/25/23 08:39 Dose: 40 mg Petrolatum (Zinc Oxide Paste (Z-Guard) 1 Applic) 1 applic TOPICAL BID NIRMAL; Protocol Last Admin: 12/25/23 09:50 Dose: 1 applic Past medical history to include: GERD Social history: . No smoking. Physical examination: VITAL SIGNS: 88, 34.21 x 62, 94% on the ventilator GENERAL: Lethargic. Left groin dialysis catheter. Right chest wall port. Getting TPN EYES: Pupils equal. Conjunctiva edouard l. HEENT: External appearance of nose and ears normal, tracheostomy-. NECK: JVD unable to assess; masses not palpable. HEART: First and second heart sounds are normal; edema, present LUNGS: Respiratory rate increased, decreased breath sounds ABDOMEN: Soft, some tenderness. Liver spleen not palpable, no masses palpable..jejunostomy tube-feeding held. RAYA drain. Incision with stitches with - wound VAC PSYCH: Unable to assess NEURO: Power in the limbs 1/5.. Eyes open. Moves head to command. Attempts to talk INVESTIGATIONS, reviewed in the clinical context: December 24: White count 1.5 hemoglobin 8.2 platelets 106 potassium 3.8 BUN 60 creatinine 1.81 December 23: White count 10.6 hemoglobin 7.8 platelets 137 sodium 147 potassium 3.5 BUN 34 creatinine 2.08 December 22: White count 9 hemoglobin 7 platelets 187 sodium 149 potassium 4 BUN 86 creatinine 2.31 December 21: White count 12.3 hemoglobin 7.7 platelets 219 sodium 149 potassium 4.3 BUN [address] chest abdomen without contrast [December 16] right upper lung cavitary lesion with air-fluid level in the posterior aspect and a larger cavitary lesion possibly within the lung parenchyma itself. Extending down towards the diaphragm additional airspace opacities in the left lung base. December 10: White count 21.3 hemoglobin 7.4 platelets 129 potassium 4.2 BUN 111 creatinine 3.77 December 09: White count 26.1 hemoglobin 8.6 platelets 154 potassium 4.1 BUN 86 creatinine 3.31. Hemoglobin this morning was 6.6 prior to transfusion EEG-evidence of generalized cerebral dysfunction and sporadic intermittent higher amplitude sharply contoured waves mainly bifrontal. Showing cortical irritability. 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 Serosal fibrous adhesions. Viable margins. Sputum culture: [November 25]: Citrobacter freundii. Pseudomonas aeruginosa November 20: White count 14.4 hemoglobin 8.8 platelets 229 potassium 4.1 BUN [address] scan abdomen [November 19] possible small bowel obstruction Stool: C. difficile negative November 15: WBC 13 hemoglobin 7.7 platelets 248 potassium 4.3 creatinine 0.87 2D echo: EF 55 to 60%. Kidneys bladder: Unremarkable November 13: White count 12 hemoglobin 6.9 platelets 276 potassium 4.4 creatinine 1.21 magnesium 1.8 iron 6 TIBC 365% saturation 1.64 transferrin 261 ferritin 34.6 B12 569 folate 4.4 November 11: Creatinine 0.86 EGD: Large amount of retained solid liquid food noted in the stomach. Large superficial gastric antral ulceration involving most of the antrum extending into the pylorus causing pyloric stenosis. Biopsies were obtained. Chest x-ray film personally reviewed by me-scattered infiltrates Assessment plan: -Aspiration pneumonitis bilateral from retained gastric contents mostly food and liquids, causing acute hypoxic respiratory failure: On presentation: Subsequent sputum culture November 25: Citrobacter freundii, Pseudomonas aeruginosa. December 13: Klebsiella oxytoca, Pseudomonas aeruginosa IV meropenem-was received originally. Now receiving IV daptomycin and Zosyn Pulmonary following Started on IV antifungal -Probable lung abscess larger 1 on the right side-patient cultures are growing Pseudomonas and Klebsiella oxytoca IV Zosyn, daptomycin -Acute pulmonary edema and fluid overload from hypoalbuminemic state and fluids from IV.:: Has been getting Lasix and dialysis: Both held -Altered mentation. Possibly encephalopathy. Could be delirium.: Not improving CT brain [December 06] nothing acute Neurology following EEG-evidence of generalized cerebral dysfunction and sporadic intermittent higher amplitude sharply contoured waves mainly bifrontal. Showing cortical irritability. Keppra was started on December 07 -Critical care poly- Pedro neuropathy: Slow to respond PT OT -Gallstones, asymptomatic -Small l bowel perforation at site of jejunostomy tube tip with balloon..: Portion of small bowel resected. On November 24. New J-tube was placed.- drainage to gravity:-Now discontinued December 19: J-tube blocked. J-tube replaced on December 20 over wire December 21: Leaking around the J-tube site. Feeding held December 23: J feeding was started yesterday evening but again started leaking increasingly around the J-tube site-feeding held again December 24: J-tube feeding has been held. -Acute kidney injury. Possible ATN from hypotensive shock: Slow to respond Renal ultrasound unremarkable. Started on renal replacement therapy on November 28. Followed by nephrology-dialysis has been on hold now -Nutrition Jejunostomy tube placed November [address] Ewing Received TPN-this was discontinued. Restarted on December 24 -Midline abdominal incision wound dehiscence Wound VAC placed -Acute recurrent atrial fibrillation-converted to sinus rhythm Received IV amiodarone. Cardiology following Lopressor -Acute hypoxic respiratory failure from aspiration pneumonia, status post ventilator assisted: Reintubated November 25. FiO2 35 PEEP of 5 Tracheostomy tube-by Dr. Zepeda on December 09 -Septic shock, recovered -Hypertension Patient started on Cleviprex-discontinued -Intermittent hypotension Intermittent use of Levophed. 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 Also anemia of blood draw. Iron deficiency anemia Received 3rd unit of blood . IV iron. -Severe thrombocytopenia. Would consider coagulation disorder secondary to infection., In the setting of underlying lymphoma.: Recovered Hematology following. -Acute blood loss anemia, Has received 3 units of blood -Sacral stage II decub ulcer Dressing in place -Hypokalemia, multiple causes Bear michellgger -Hypoglycemia -GERD PPI -Acute diarrhea secondary to tube feeding.: Resolved C. difficile ruled out. -Large superficial gastric antral ulceration involving the gastric antrum extending into the pylorus with gastric outlet obstruction. 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 Port placed. For outpatient PET scan. -Full code Patient doing poorly. Spoke to the daughter in the lounge. Stop Levemir. IV antifungal added. Manjit dey. Prognosis poor. Past Medical History Past Medical History: GERD/Reflux History of Any Multi-Drug Resistant Organisms: None Reported Past Surgical History: Heart Catheterization Additional Past Surgical History / Comment(s): colonsocopy,spinal injection, Past Anesthesia/Blood Transfusion Reactions: No Reported Reaction Past Psychological History: No Psychological Hx Reported Smoking Status: Never smoker Past Alcohol Use History: None Reported Past Drug Use History: None Reported
--- NOTE | 2023-12-25 21:29 | OP ---
OPERATIVE REPORT DATE OF SERVICE : PROCEDURE PERFORMED: Placement of a right radial arterial line. PREOPERATIVE DIAGNOSES: Acute hypoxic respiratory failure, abdominal sepsis, pneumonia, and lung abscess. POSTOPERATIVE DIAGNOSES: Acute hypoxic respiratory failure, abdominal sepsis, pneumonia, and lung abscess. ANESTHESIA USED: None deployed. DESCRIPTION OF PROCEDURE: The right wrist was prepared in a sterile fashion. Drapes were applied. The right radial artery was palpated, cannulated, and a guidewire was placed, a Cook's catheter was inserted over the guidewire, and the guidewire was removed. Good blood flow, good waveform, no complications, line was secured using 3.0 silk sutures. MMODL / IJN: [id number] /
[2023-12-25 23:08] LABS: Glucose,Whole Blood 89 mg/dL (70-110)
[2023-12-26 04:29] LABS: Anisocytosis Slight; Basophils % (A) 0 %; Eosinophils # (A) 0.1 k/uL (0-0.7); Eosinophils % (A) 1 %; HCT 21.1 % (39.0-53.0); Hypochromasia Slight; Lymphocytes # (A) 2.1 k/uL (1.0-4.8); Lymphocytes % (A) 18 %; MCHC 32.5 g/dL (31.0-37.0); MCV 89.3 fL (80.0-100.0); Mean Platelet Volume 9.9; Monocytes # (A) 0.2 k/uL (0-1.0); Monocytes % (A) 2 %; Neutrophils # (A) 9.1 k/uL (1.3-7.7); Neutrophils % (A) 78 %; Poikilocytosis Slight; RBC 2.36 m/uL (4.30-5.90); RDW 18.6 % (11.5-15.5); WBC 11.6 k/uL (3.8-10.6)
[2023-12-26 04:49] LABS: HGB 6.8 gm/dL (13.0-17.5)
[2023-12-26 05:03] LABS: ABG Base Excess -1.8 mmol/L; ABG HCO3 22 mmol/L (21-25); ABG PCO2 34 mmHg (35-45); ABG PH 7.43 (7.35-7.45); ABG PO2 82 mmHg (83-108); ABG TCO2 23 mmol/L (19-24); Allen Test Performed? Yes
[2023-12-26 05:10] LABS: Platelet Count 86 k/uL (150-450)
[2023-12-26 05:17] LABS: Ionized Calcium 4.3 mg/dL (4.5-5.3)
[2023-12-26 05:35] LABS: African American GFR (CKD) 42 (>60 ml/min/1.73 sqM); Anion Gap 3 mmol/L; Blood Urea Nitrogen 53 mg/dL (9-20); Calcium 6.6 mg/dL (8.4-10.2); Carbon Dioxide 21 mmol/L (22-30); Chloride 115 mmol/L (98-107); Glucose 83 mg/dL (74-99); Magnesium 1.7 mg/dL (1.6-2.3); Non-African American GFR(CKD) 36 (>60 ml/min/1.73 sqM); Phosphorus 4.2 mg/dL (2.5-4.5); Potassium 3.3 mmol/L (3.5-5.1); Sodium 139 mmol/L (137-145)
[2023-12-26] MEDS ORDERED: Potassium Replacement Protocol 1 EACH MISC MISCELLANE PRN (05:37)
[2023-12-26] MEDS: MAGNESIUM SULFATE-D5W PMX 1 GM in DEXTROSE/WATER 1 100ML.BAG IVPB ONE (05:49)
[2023-12-26] MEDS: POTASSIUM CHLORIDE 20 MEQ in SODIUM CHLORIDE 0.9% 100 ML IVPB SCH (05:54)
[2023-12-26 06:21] LABS: Glucose,Whole Blood 98 mg/dL (70-110)
--- NOTE | 2023-12-26 07:57 | XR ---
EXAMINATION TYPE: XR chest 1V portable DATE OF EXAM: 12/26/2023 COMPARISON: 12/25/2023 HISTORY: SOB, Follow Up FINDINGS: Indwelling tubes and catheters are unchanged. Right apical right basilar opacities remain unchanged. Stable appearance of the cardio-mediastinal structures at this time. Pleural effusion unchanged. IMPRESSION: 1. Stable portable chest. Clinical correlation and follow up until resolution is recommended. [facility], , 12/26/2023 7:54 AM
--- NOTE | 2023-12-26 08:41 | P.PN ---
Subjective Progress Note Date: 12/25/23 Principal diagnosis: Reason for follow-up is pneumonia and bacteremia Patient is 73-year-old with male initial presentation to the hospital on 11/11/2021 for after the patient did have aspiration while undergoing elective endoscopy, diagnosed with a non-Hodgkin of, subsequently did have explained laparotomy for perforated small bowel abdominal washout and feeding jejunostomy tube patient did require dialysis catheter placement for dialysis during this hospital stay and tracheostomy for respiratory failure, infectious was consulted for fever. On today's evaluation that is 12/25/2023, Patient is afebrile this morning patient remains to be intubated on the vent through the trach FiO2 is currently stable at 30% no significant purulent secretion through the ET patient is requiring more pressor support as reported by the nursing staff. Patient white count is slightly up to 11.5 creatinine is 1.81 Objective - Vital Signs Vital signs: Vital Signs Temp 96.8 F L 12/25/23 11:45 Pulse 90 12/25/23 12:13 Resp 35 H 12/25/23 11:45 BP 98/58 12/25/23 11:45 Pulse Ox 99 12/25/23 11:45 FiO2 30 12/25/23 11:56 Intake & Output 12/24/23 12/25/23 12/25/23 18:59 06:59 18:59 Intake Total 7026.585 1030.713 494.963 Output Total 785 980 125 Balance 608.566 0443.713 369.963 Weight 94.3 kg 94.3 kg Intake: IV 1550 2380 425 0.9 KVO 30 25 DAPTOmycin 600 mg In 50 Sodium Chloride 0.9% 50 ml @ 100 mls/hr IVPB Q48H [facility] Rx#:[id number] Dextrose 5% in Water 1, 100 000 ml @ 100 mls/hr IV . Q10H [facility] Rx#:[id number] Dextrose 5% in Water 1, 1250 1250 250 000 ml @ 125 mls/hr IV . Q8H [facility] Rx#:[id number] Lactated Ringers 1,000 ml 1000 @ 50 mls/hr IV .Q20H [facility] Rx#:[id number] Piperacillin-Tazobactam 3 100 .375 gm In Sodium Chloride 0.9% 100 ml @ 25 mls/hr IVPB Q12HR [facility] Rx #:[id number] Piperacillin-Tazobactam 3 100 .375 gm In Sodium Chloride 0.9% 100 ml @ 25 mls/hr IVPB Q8HR [facility] Rx# :[id number] Potassium Chloride 20 meq 200 In Water For Injection 1 100ml.bag @ 50 mls/hr IVPB Q2H [facility] Rx#: [id number] Intake, IV Titration 125.121 271.713 69.963 Amount Dexmedetomidine/0.9% NaCl 125.121 3.079 (Pmx) 400 mcg In Empty Bag 1 bag @ 0.2 MCG/KG/HR 4.925 mls/hr IV .[id number] [facility] Rx#:[id number] propofoL 1,000 mg In 268.634 69.963 Empty Bag 1 bag @ 15 MCG/ KG/MIN 8.685 mls/hr IV . [id number] NIR[facility]AL Rx#:[id number] Output: Drainage 180 50 50 Right Abdomen 180 50 50 Urine 605 930 75 Other: Voiding Method Indwelling Catheter Indwelling Catheter ABP, PAP, CO, CI - Last Documented Arterial Blood Pressure 139/59 - Exam GENERAL DESCRIPTION: An elderly male lying in bed in no distress RESPIRATORY SYSTEM: Unlabored breathing , decreased breath sounds at bases HEART: S1 S2 regular rate and rhythm , ABDOMEN: Soft , no tenderness EXTREMITIES: No edema feet - Labs CBC & Chem 7: 12/26/23 04:10 12/26/23 04:10 Labs: Abnormal Lab Results - Last 24 Hours (Table) 12/24/23 12/25/23 12/25/23 Range/Units 17:10 00:10 05:37 WBC (3.8-10.6) k/uL RBC (4.30-5.90) m/uL Hgb (13.0-17.5) gm/dL Hct (39.0-53.0) % RDW (11.5-15.5) % Plt Count (150-450) k/uL Neutrophils # (1.3-7.7) k/uL ABG pCO2 30 L (35-45) mmHg ABG O2 Saturation 99.0 H (94-97) % Chloride (98-107) mmol/L Carbon Dioxide (22-30) mmol/L BUN (9-20) mg/dL Creatinine (0.66-1.25) mg/dL Glucose (74-99) mg/dL POC Glucose (mg/dL) 160 H 194 H (70-110) mg/dL Calcium (8.4-10.2) mg/dL 12/25/23 12/25/23 12/25/23 Range/Units 05:38 07:47 07:47 WBC 11.5 H (3.8-10.6) k/uL RBC 2.77 L (4.30-5.90) m/uL Hgb 8.2 L (13.0-17.5) gm/dL Hct 25.7 L (39.0-53.0) % RDW 18.3 H (11.5-15.5) % Plt Count 106 L (150-450) k/uL Neutrophils # 8.8 H (1.3-7.7) k/uL ABG pCO2 (35-45) mmHg ABG O2 Saturation (94-97) % Chloride 114 H (98-107) mmol/L Carbon Dioxide 18 L (22-30) mmol/L BUN 60 H (9-20) mg/dL Creatinine 1.81 H (0.66-1.25) mg/dL Glucose 157 H (74-99) mg/dL POC Glucose (mg/dL) 185 H (70-110) mg/dL Calcium 7.1 L (8.4-10.2) mg/dL Microbiology - Last 24 Hours (Table) 12/19/23 16:44 Blood Culture - Final Blood Assessment and Plan (1) Sepsis Current Visit: Yes Status: Acute Code(s): A41.9 - SEPSIS, UNSPECIFIED ORGANISM SNOMED Code(s): 30266195 (2) Pneumonia Current Visit: Yes Status: Acute Code(s): J18.9 - PNEUMONIA, UNSPECIFIED ORGANISM SNOMED Code(s): 731485421 (3) Bacteremia Current Visit: Yes Status: Acute Code(s): R78.81 - BACTEREMIA SNOMED Code(s): 7153484 Plan: 1patient with sepsis in this patient has been in the hospital for 34 days before this initial consultation with initial admission to the hospital after elective EGD with the patient was noted to have gastric outlet obstruction and did aspirated subsequently the patient did have laparotomy for perforated small bowel status post resection and jejunostomy tube placement noted to have evidence of a midline abdominal wound dehiscence did have a apical cavitary lesion on the right side with his sputum showing Pseudomonas and Klebsiella, the patient also have positive blood culture with coagulase-negative staph patient did have a PICC line as well as dialysis catheter etiology of his sepsis is likely multifactorial, with a likely source pneumonia and possible line related 2-patient did have change in his clinical condition requiring more pressor support patient is broadening covered with Zosyn and daptomycin we will repeat a blood culture repeated sputum as well as urine empirically add Eraxis while waiting for the repeat septic workup to be completed Family at bedside question answered Dictation was produced using [email or web address] dictation software. please excuse any g rammatical, word or spelling errors. Time with Patient: Less than 30
--- NOTE | 2023-12-26 10:40 | P.PN ---
Subjective Patient is seen in follow-up for acute kidney injury. Patient underwent exploratory laparotomy with small bowel obstruction NG tube replacement Sep tem2023. Nonoliguric. Started on hemodialysis November 29, 2023. Last dialysis December 18, 2023. Status post tracheostomy December 10, 2023. Renal function stable. Tube feeds currently held. Receiving TPN. Also receiving a unit of blood. On low-dose Levophed. Vital signs stable. On Levophed. General: Resting in bed. HEENT: Tracheostomy noted. LUNGS: Scattered rhonchi. HEART: Regular rate and rhythm. ABDOMEN: No drainage. EXTREMITITES: Trace edema. Objective - Vital Signs Vital signs: Vital Signs Temp 98.5 F 12/26/23 08:00 Pulse 89 12/26/23 10:00 Resp 41 H 12/26/23 10:00 BP 91/53 12/26/23 10:00 Pulse Ox 96 12/26/23 10:00 FiO2 30 12/26/23 08:27 Intake & Output 12/25/23 12/26/23 12/26/23 18:59 06:59 18:59 Intake Total 1218.963 551.439 Output Total 380 855 Balance 838.963 -303.561 Weight 94.3 kg 98.8 kg Intake: IV 695 110 0.9 KVO 95 110 Anidulafungin 200 mg In 200 Sodium Chloride 0.9% 200 ml @ 84 mls/hr IVPB ONCE ONE Rx#:[id number] DAPTOmycin 600 mg In 50 Sodium Chloride 0.9% 50 ml @ 100 mls/hr IVPB Q48H [facility] Rx#:[id number] Dextrose 5% in Water 1, 250 000 ml @ 125 mls/hr IV . Q8H [facility] Rx#:[id number] Piperacillin-Tazobactam 3 100 .375 gm In Sodium Chloride 0.9% 100 ml @ 25 mls/hr IVPB Q12HR [facility] Rx #:[id number] Intake, IV Titration 523.963 441.439 Amount Norepinephrine 4 mg In 254 54.106 Sodium Chloride 0.9% 250 ml @ 0.03 MCG/KG/MIN 11. 03 mls/hr IV .Q23H2M [facility] Rx#:[id number] propofoL 1,000 mg In 269.963 387.333 Empty Bag 1 bag @ 15 MCG/ KG/MIN 8.685 mls/hr IV . [id number] [facility] Rx#:[id number] Blood Product 0 Unit 0 Output: Drainage 140 50 Right Abdomen 140 50 Urine 240 805 Other: Voiding Method Indwelling Catheter Indwelling Catheter ABP, PAP, CO, CI - Last Documented Arterial Blood Pressure 140/73 - Labs CBC & Chem 7: 12/26/23 04:10 12/26/23 04:10 Labs: Abnormal Lab Results - Last 24 Hours (Table) 12/23/23 12/25/23 12/25/23 Range/Units 17:15 12:52 12:52 WBC (3.8-10.6) k/uL RBC (4.30-5.90) m/uL Hgb (13.0-17.5) gm/dL Hct (39.0-53.0) % RDW (11.5-15.5) % Plt Count (150-450) k/uL Neutrophils # (1.3-7.7) k/uL ABG pCO2 (35-45) mmHg ABG pO2 (83-108) mmHg Hemoglobin (13.0-17.5) gm/dL Potassium (3.5-5.1) mmol/L Chloride (98-107) mmol/L Carbon Dioxide (22-30) mmol/L BUN (9-20) mg/dL Creatinine (0.66-1.25) mg/dL POC Glucose (mg/dL) (70-110) mg/dL Calcium (8.4-10.2) mg/dL Ionized Calcium Krystal (4.5-5.3) mg/dL Albumin 1.9 L (3.5-5.0) g/dL Procalcitonin 0.55 H (0.02-0.50) ng/mL Urine Protein (Negative) Urine Blood (Negative) Ur Leukocyte Esterase (Negative) Urine RBC (0-5) /hpf Urine Bacteria (None) /hpf Urine Yeast (Budding) (None) /hpf Crossmatch See Detail 12/25/23 12/25/23 12/25/23 Range/Units 16:30 17:47 17:57 WBC (3.8-10.6) k/uL RBC (4.30-5.90) m/uL Hgb (13.0-17.5) gm/dL Hct (39.0-53.0) % RDW (11.5-15.5) % Plt Count (150-450) k/uL Neutrophils # (1.3-7.7) k/uL ABG pCO2 (35-45) mmHg ABG pO2 (83-108) mmHg Hemoglobin (13.0-17.5) gm/dL Potassium (3.5-5.1) mmol/L Chloride (98-107) mmol/L Carbon Dioxide (22-30) mmol/L BUN (9-20) mg/dL Creatinine (0.66-1.25) mg/dL POC Glucose (mg/dL) 36 L* 36 L* (70-110) mg/dL Calcium (8.4-10.2) mg/dL Ionized Calcium Krystal (4.5-5.3) mg/dL Albumin (3.5-5.0) g/dL Procalcitonin (0.02-0.50) ng/mL Urine Protein Trace H (Negative) Urine Blood Moderate H (Negative) Ur Leukocyte Esterase Small H (Negative) Urine RBC 15 H (0-5) /hpf Urine Bacteria Occasional H (None) /hpf Urine Yeast (Budding) Many H (None) /hpf Crossmatch 12/25/23 12/26/23 12/26/23 Range/Units 18:14 04:10 04:10 WBC 11.6 H (3.8-10.6) k/uL RBC 2.36 L (4.30-5.90) m/uL Hgb 6.8 L* (13.0-17.5) gm/dL Hct 21.1 L (39.0-53.0) % RDW 18.6 H (11.5-15.5) % Plt Count 86 L (150-450) k/uL Neutrophils # 9.1 H (1.3-7.7) k/uL ABG pCO2 (35-45) mmHg ABG pO2 (83-108) mmHg Hemoglobin (13.0-17.5) gm/dL Potassium 3.3 L (3.5-5.1) mmol/L Chloride 115 H (98-107) mmol/L Carbon Dioxide 21 L (22-30) mmol/L BUN 53 H (9-20) mg/dL Creatinine 1.84 H (0.66-1.25) mg/dL POC Glucose (mg/dL) 129 H (70-110) mg/dL Calcium 6.6 L (8.4-10.2) mg/dL Ionized Calcium Krystal 4.3 L (4.5-5.3) mg/dL Albumin (3.5-5.0) g/dL Procalcitonin (0.02-0.50) ng/mL Urine Protein (Negative) Urine Blood (Negative) Ur Leukocyte Esterase (Negative) Urine RBC (0-5) /hpf Urine Bacteria (None) /hpf Urine Yeast (Budding) (None) /hpf Crossmatch 12/26/23 12/26/23 Range/Units 04:10 04:58 WBC (3.8-10.6) k/uL RBC (4.30-5.90) m/uL Hgb (13.0-17.5) gm/dL Hct (39.0-53.0) % RDW (11.5-15.5) % Plt Count (150-450) k/uL Neutrophils # (1.3-7.7) k/uL ABG pCO2 34 L (35-45) mmHg ABG pO2 82 L (83-108) mmHg Hemoglobin 6.7 L* (13.0-17.5) gm/dL Potassium (3.5-5.1) mmol/L Chloride (98-107) mmol/L Carbon Dioxide (22-30) mmol/L BUN (9-20) mg/dL Creatinine (0.66-1.25) mg/dL POC Glucose (mg/dL) (70-110) mg/dL Calcium (8.4-10.2) mg/dL Ionized Calcium Krystal (4.5-5.3) mg/dL Albumin 1.7 L (3.5-5.0) g/dL Procalcitonin (0.02-0.50) ng/mL Urine Protein (Negative) Urine Blood (Negative) Ur Leukocyte Esterase (Negative) Urine RBC (0-5) /hpf Urine Bacteria (None) /hpf Urine Yeast (Budding) (None) /hpf Crossmatch Assessment and Plan Plan: Assessment: 1. Acute kidney injury secondary to ATN secondary to septic shock. Creatinine 0.86 on admission and up to 5.38 dated November 29, 2023. Urine output improved, now nonoliguric. UA fairly benign. No hydronephrosis noted on imaging. Started on hemodialysis November 29, 2023 due to volume overload. Patient initially had a right femoral catheter placed which subsequently became occluded and a left tunneled femoral catheter was placed December 06, 2023. Renal function improving with creatinine stable at 1.84 today. 2. Perforated small bowel status post exploratory laparotomy with abdominal washout, small bowel resection and J-tube replacement November 25, 2023. 3. A-fib with RVR. s/p amiodarone drip. Also received digoxin this admission. 4. Recently diagnosed gastric B-cell lymphoma. 5. Septic shock. Likely abdominal source. On IV antibiotics. 6. Hypocalcemia secondary to acute kidney injury. Corrected calcium for albumin near 8.4. 7. Metabolic acidosis secondary to acute kidney injury and partially from compensation for underlying respiratory alkalosis. Improved. 8. Volume overload. Improved with diuresis and ultrafiltration. 9. Status post tracheostomy December 10, 2023. 10. Anemia. Component of chronic illness and acute blood loss. Received blood transfusion and DDAVP this admission. On Aranesp. 11. Respiratory alkalosis. 12. Hypernatremia from lack of oral water intake. Status post D5W. Improved. Plan: Continue to hold hemodialysis. Last dialysis December 18, 2023. Receiving TPN. Currently receiving a unit of blood. IV DDAVP x 1 dose today. Avoid nephrotoxins. Preserved EF noted on echocardiogram. Continue to monitor for renal recovery. Case discussed with present at bedside. DC dialysis catheter prior to discharge if renal function remains stable. Potassium replaced. Add midodrine. Wean Levophed. Check ionized calcium level. 1 g IV calcium gluconate today.
--- NOTE | 2023-12-26 11:30 | P.PN ---
Subjective Progress Note Date: 12/26/23 Principal diagnosis: Acute hypoxic respiratory failure requiring intubation mechanical ventilation secondary to aspiration. This is a 73-year-old white male with history of chronic abdominal pain for the last 8 months has been treated with Protonix 40 mg daily for the last 3 months with no improvement. Patient had a 22 pound weight loss in the last [address] of the abdomen and pelvis 3 weeks ago showed thickening of the antral wall with pathological adenopathy posterior to the stomach suspicious of neoplasm. Today the patient underwent elective upper endoscopy to evaluate further, patient received IV sedation by anesthesia endoscope was inserted into the mouth, esop hagus was intubated without any difficulty there was evidence of large amount of liquid and solid food noted in the stomach suggestive of gastric outlet obstruction. Scope could not be advanced through the pylorus, however in the prepyloric area there was a large superficial ulceration identified with multiple biopsies were done from this area. The body cardia and fundus could not adequately visualize because of large amount of retained food in the stomach. Scope was withdrawn back to the stomach and upon careful examination the mucosa of the antrum body and cardia as well as the fundus appeared normal. Procedure was being performed and biopsies were done patient threw up and subsequently became hypoxic there was clearly evidence of witnessed aspiration anesthesia intubated the patient, procedure was terminated, and the patient was transferred to the ICU, this consult was initiated. Patient is now on assist- control rate of 20 tidal volume 500 FiO2 70% PEEP of 10 ABG is pending, earlier ABG showed profound hypoxia patient is on propofol at 50 mcg/kg/min, next ABG is pending. Chest x-ray showed chronic changes without evidence of acute pulmonary disease. 12/20/2023, the patient is being seen for a follow-up. More alert and awake compared to yesterday. He is able to move his fingers and toes on today's evaluation. Following commands. Nevertheless, his J tube has been clogged and was unable to utilize the tube that has been some leaks around the tube. No abdominal distention. No nausea or emesis. Hemodynamically stable. Will undergo hemodialysis today. He remains on pressure control mode of mechanical ventilation at rate of 16, pressure of 10, +5 PEEP with an FiO2 of 30%. Chest x-ray from today is essentially unchanged with a stable cavity in his right uppe r lobe. White cell count of 15.7, hemoglobin 7.2, platelet count is 203, blood gas showed a pH of 7.49 with a pCO2 of 33 and pO2 of 73. BUN is 88 with a creatinine 1.89 and sodium is at 141 with a potassium level of 4.1. He is producing adequate amount of urine output. Fluid balance has been -900 cc over the past 24 hours. Normotensive. Remains on a combination of Zosyn and daptomycin. Remains on Levemir insulin 24 units daily. This is currently on hold as the patient has not been able to obtain enteral feeding. Wound VAC still in place. 12/21/2023, the patient remains on the mechanical ventilator. Overnight, the patient experienced discomfort in his abdomen and he was restless. Based on that, the patient was placed on a higher dose of Precedex which is currently running at 0.6 mcg/kg/h. The patient was also asynchronous with the mechanical ventilator and based on that, the patient was switched to an AC mode and currently is at a rate of 16, tidal volume of 400, FiO2 of 30% with a PEEP of 5. The patient is adequately sedated for now. Chest x-ray remains unchanged. Tra cheostomy tube in place and the patient is having increased amount of respiratory secretions. J tube needs to be replaced today and this will be done by his general surgery as the tube remains clogged. Urine output is low order of 30 cc an hour. Afebrile. Remains on Zosyn and daptomycin. White cell count is 16.9, hemoglobin 7.4 and a platelet count of 280. Blood gas from today showed a pH of 7.46 with a pCO2 of 36 and pO2 of 82. Sodium levels of 144, BUN is 19 with a creatinine of 2.2 and a serum bicarb is at 23. The abdominal wound remains unchanged. RAYA drain is serosanguineous. 12/22/2023, patient remains on Precedex at 0.4 mcg/kg/min. Arousable. Communicates. Profoundly weak. Remains on the mechanical ventilator with a right lung abscess. SIMV mode mode rate of 16, tidal volume of 400, FiO2 30% with a PEEP of 5, with a pressure support of 8. Blood gas showed a pH of 7.46 with a pCO2 of 32 and a pO2 of 82. Chest x-ray remains unchanged with a right upper lobe cavitating lesion/opacity and a suspected lung abscess. This is rated Pseudomonas and the patient remains on IV Zosyn. He remains on daptomycin. Urine output is in order of 50 cc an hour.. The J-tube was unplugged yesterday. Nevertheless, the tube itself is malfunctioning and there is drainage around the tube requiring dressing changes the dressings being soakedConstantly. The patient's white cell count is 12.3 with a hemoglobin 7.7. Sodium is at 149, BUN 91 with a creatinine of 2.3. Bicarb is at 20. Undergoing hemodialysis periodically. Last hemodialysis was on 12/21/2023. Currently NPO. Abdominal wound is clean and the patient has a wound VAC in place. RAYA drain output is serosanguineous. Patient was seen today on 12/23/2023, remains in the ICU, intubated and mechanically ventilated. Patient is on IMV with pressure support/IMV 16, pressure support of 8, tidal volume 400, PEEP of 5. Patient seems to be doing well with that kind of mode of mechanical ventilation, ABG showed a pO2 of 76 pCO2 28 pH of 7.50. I changed his rate from 16-8 kept him otherwise on the same ventilator settings. Plan to gradually go down on the IMV rate until we can get him on pressure support of 8 and CPAP. Patient is requiring Precedex at 0.4 mcg/kg/h, he is on D5W at 50 cc/h. Remains on antibiotics in the form of daptomycin and Zosyn, chest x-ray continues to show bilateral airspace disease and right upper lobe lung abscess. Continues to have a bit of a leak from his J-tube being addressed by surgery has a wound VAC, and he had a RAYA drain. Mentation arce the patient is a bit more appropriate, opens his eyes, follows very simple instructions, seems to comprehend. Patient has a left brachial PICC line, he also has a left groin hemodialysis catheter. WBC count is 10.1 hemoglobin is 7 sodium is 149 potassium 4 chloride is 121 BUN is 86 creatinine 2.31. Blood sugar is 173. Remains on enteral feeding via J-tube, a bit of a leak is noted, and surgery is to address this. Sputum cultures have grown Klebsiella and Pseudomonas and remains on proper antibiotics Patient was seen and examined today on 12/24/2023, patient remains in the ICU, and mechanically ventilated. On IMV mode of 8 pressure support of 8 tidal volume 400 FiO2 30% and PEEP of 5 ABG showed a pO2 of 81 pCO2 32 pH of 7.45. Patient remains on daptomycin and Zosyn, remains on Precedex at 0.4 mcg/kg/h intermittently receiving Dilaudid for pain. Feeding arce is presently on hold, patient had a leak around the jejunostomy tube, surgery is recommending a trickle feed or TPN if could not use the J-tube. Patient is arousable follows simple instructions, and today I had a chance to get rid of the IMV mode, and I am recommending a pressure support of 8 and CPAP. For the last few hours the patient has been tolerating this mode of mechanical ventilation, however he is not quite ready to go to [facility] at this point. Chest x-ray continues to show significant opacity in the right upper lobe and airspace disease in the right lower lobe. Previously patient had a CT of the chest showing right upper lobe abscess. Again he remains on Zosyn and daptomycin.Labs today showed WBC count of 10.6 hemoglobin 7.8 sodium is 147, patient is now on D5W at 100 cc an hour his bicarb is 19 BUN 74 creatinine 2.08, gradually improving, his last hemodialysis was on the , nephrology is considering removing his dialysis catheter in the left groin and I believe that is appropriate patient was seen and examined today on 12/25/2023, remains in the ICU, intubated and mechanically ventilated. Patient had to be placed back on assist-control mode of mechanical ventilation yesterday, mostly because he developed s ignificant agitation and restlessness, and ongoing persistent cough with some air leak from the cough of that tracheostomy. Patient had to be sedated and he was placed on propofol and he remains on propofol at 50 mcg/kg/min. Maximal dose of Precedex yesterday could not calm him down, hence we had to transition him from pressure support/CPAP mode of mechanical ventilation to assist-control mode of mechanical ventilation and fully sedated him with propofol replacing Precedex. Today the patient is sedated, he is on assist-control rate of 16 tidal volume 400 FiO2 30% PEEP of 5 ABG showed a pO2 of 98 pCO2 30 pH of 7.45 chest x-ray is basically the same showing significant airspace disease in the right upper lobe and right lower lobe. Remains on daptomycin and Zosyn. His IV fluid was transitioned to D5 4 5 from D5W sodium today is 141. His urine output is about 40 to 50 cc/h, renal profile is improving with steady trending of creatinine down. Patient continues to have leakage around the jejunostomy tube. Patient is being followed by surgery no specific recommendation made except to continue the same and except the leak as it isLabs today showed WBC count of 11.5 hemoglobin 8.2 basic metabolic profile is normal BUN is 60 creatinine down to 1.81 Patient seen today on 12/26/2023, remains in the ICU intubated mechanically ventilated sedated patient is on assist-control rate of 16 tidal volume 400 FiO2 30% PEEP of 5 ABG showed a pO2 of 82 pCO2 34 pH of 7.43. Patient is now on TPN at 30 cc/h propofol at 50 mcg/kg/min hemoglobin is down to 6.8 today and he is receiving a unit of packed RBCs. His IV fluids at 50 cc/h in the form of 0.9 normal saline. He was last night on a small dose of norepinephrine at 0.01 mcg/kg/min and is presently on hold. Antibiotics arce patient is on Zosyn daptomycin and Eraxis. Chest x-ray continues to show significant airspace disease involving the right upper lobe and right lower lobe not much of a change noted on the chest x-ray. Clinically the patient is about the same, today I plan to discontinue propofol, arrange for the patient to go on Precedex, and assess mental status off sedation. If tolerated, may transition the patient a gain to pressure support and CPAP type of mechanical ventilation, but he is not ready to go to that transition yet. WBC count is 11.6 hemoglobin 6.8. ABG today showed a pO2 of 82 pCO2 34 pH of 7.43 potassium is 3.3 being addressed accordingly BUN is 53 creatinine 1.84 Objective - Vital Signs Vital signs: Vital Signs Temp 98.5 F 12/26/23 08:00 Pulse 89 12/26/23 10:00 Resp 41 H 12/26/23 10:00 BP 91/53 12/26/23 10:00 Pulse Ox 96 12/26/23 10:00 FiO2 30 12/26/23 08:27 Intake & Output 12/25/23 12/26/23 12/26/23 18:59 06:59 18:59 Intake Total 1218.963 551.439 Output Total 380 855 Balance 838.963 -303.561 Weight 94.3 kg 98.8 kg Intake: IV 695 110 0.9 KVO 95 110 Anidulafungin 200 mg In 200 Sodium Chloride 0.9% 200 ml @ 84 mls/hr IVPB ONCE ONE Rx#:[id number] DAPTOmycin 600 mg In 50 Sodium Chloride 0.9% 50 ml @ 100 mls/hr IVPB Q48H [facility] Rx#:[id number] Dextrose 5% in Water 1, 250 000 ml @ 125 mls/hr IV . Q8H [facility] Rx#:[id number] Piperacillin-Tazobactam 3 100 .375 gm In Sodium Chloride 0.9% 100 ml @ 25 mls/hr IVPB Q12HR [facility] Rx #:[id number] Intake, IV Titration 523.963 441.439 Amount Norepinephrine 4 mg In 254 54.106 Sodium Chloride 0.9% 250 ml @ 0.03 MCG/KG/MIN 11. 03 mls/hr IV .Q23H2M [facility] Rx#:[id number] propofoL 1,000 mg In 269.963 387.333 Empty Bag 1 bag @ 15 MCG/ KG/MIN 8.685 mls/hr IV . [id number] [facility] Rx#:[id number] Blood Product 0 Unit 0 Output: Drainage 140 50 Right Abdomen 140 50 Urine 240 805 Other: Voiding Method Indwelling Catheter Indwelling Catheter ABP, PAP, CO, CI - Last Documented Arterial Blood Pressure 140/73 - Exam General: Revealed 73-year-old white male intubated, sedated, on propofol. Skin: Skin is warm and dry and no rashes or lesions are noted. Eye: Pupils are equal, round and reactive to light, extra-ocular movements are intact; there is normal conjunctiva bilaterally. Ears, nose, mouth and throat: There are moist mucous membranes and no oral lesions. Neck: The neck is supple, there is no tenderness or JVD. Tracheostomy is intact. No air leak noted today Cardiovascular: There is a regular rate and rhythm. No murmur, rub or gallop is appreciated. Respiratory: Crackles at the bases specially at the right base Gastrointestinal: no rebound, no guarding, no bowel sounds, positive leak noted around the jejunostomy tube, being addressed by surgery on the case, Musculoskeletal: No deformities and no limitation range of motion other the patient seems to be generally weak. 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 Neurological: Could not assess patient is sedated on propofol Extremities: 1+ bipedal edema - Labs CBC & Chem 7: 12/26/23 04:10 12/26/23 04:10 Labs: Abnormal Lab Results - Last 24 Hours (Table) 12/23/23 12/25/23 12/25/23 Range/Units 17:15 12:52 12:52 WBC (3.8-10.6) k/uL RBC (4.30-5.90) m/uL Hgb (13.0-17.5) gm/dL Hct (39.0-53.0) % RDW (11.5-15.5) % Plt Count (150-450) k/uL Neutrophils # (1.3-7.7) k/uL ABG pCO2 (35-45) mmHg ABG pO2 (83-108) mmHg Hemoglobin (13.0-17.5) gm/dL Potassium (3.5-5.1) mmol/L Chloride (98-107) mmol/L Carbon Dioxide (22-30) mmol/L BUN (9-20) mg/dL Creatinine (0.66-1.25) mg/dL POC Glucose (mg/dL) (70-110) mg/dL Calcium (8.4-10.2) mg/dL Ionized Calcium Krystal (4.5-5.3) mg/dL Albumin 1.9 L (3.5-5.0) g/dL Triglycerides (0.00-149.00) mg/dL Procalcitonin 0.55 H (0.02-0.50) ng/mL Urine Protein (Negative) Urine Blood (Negative) Ur Leukocyte Esterase (Negative) Urine RBC (0-5) /hpf Urine Bacteria (None) /hpf Urine Yeast (Budding) (None) /hpf Crossmatch See Detail 12/25/23 12/25/23 12/25/23 Range/Units 16:30 17:47 17:57 WBC (3.8-10.6) k/uL RBC (4.30-5.90) m/uL Hgb (13.0-17.5) gm/dL Hct (39.0-53.0) % RDW (11.5-15.5) % Plt Count (150-450) k/uL Neutrophils # (1.3-7.7) k/uL ABG pCO2 (35-45) mmHg ABG pO2 (83-108) mmHg Hemoglobin (13.0-17.5) gm/dL Potassium (3.5-5.1) mmol/L Chloride (98-107) mmol/L Carbon Dioxide (22-30) mmol/L BUN (9-20) mg/dL Creatinine (0.66-1.25) mg/dL POC Glucose (mg/dL) 36 L* 36 L* (70-110) mg/dL Calcium (8.4-10.2) mg/dL Ionized Calcium Krystal (4.5-5.3) mg/dL Albumin (3.5-5.0) g/dL Triglycerides (0.00-149.00) mg/dL Procalcitonin (0.02-0.50) ng/mL Urine Protein Trace H (Negative) Urine Blood Moderate H (Negative) Ur Leukocyte Esterase Small H (Negative) Urine RBC 15 H (0-5) /hpf Urine Bacteria Occasional H (None) /hpf Urine Yeast (Budding) Many H (None) /hpf Crossmatch 12/25/23 12/26/23 12/26/23 Range/Units 18:14 04:10 04:10 WBC 11.6 H (3.8-10.6) k/uL RBC 2.36 L (4.30-5.90) m/uL Hgb 6.8 L* (13.0-17.5) gm/dL Hct 21.1 L (39.0-53.0) % RDW 18.6 H (11.5-15.5) % Plt Count 86 L (150-450) k/uL Neutrophils # 9.1 H (1.3-7.7) k/uL ABG pCO2 (35-45) mmHg ABG pO2 (83-108) mmHg Hemoglobin (13.0-17.5) gm/dL Potassium 3.3 L (3.5-5.1) mmol/L Chloride 115 H (98-107) mmol/L Carbon Dioxide 21 L (22-30) mmol/L BUN 53 H (9-20) mg/dL Creatinine 1.84 H (0.66-1.25) mg/dL POC Glucose (mg/dL) 129 H (70-110) mg/dL Calcium 6.6 L (8.4-10.2) mg/dL Ionized Calcium Krystal 4.3 L (4.5-5.3) mg/dL Albumin (3.5-5.0) g/dL Triglycerides 240.00 H (0.00-149.00) mg/dL Procalcitonin (0.02-0.50) ng/mL Urine Protein (Negative) Urine Blood (Negative) Ur Leukocyte Esterase (Negative) Urine RBC (0-5) /hpf Urine Bacteria (None) /hpf Urine Yeast (Budding) (None) /hpf Crossmatch 12/26/23 12/26/23 Range/Units 04:10 04:58 WBC (3.8-10.6) k/uL RBC (4.30-5.90) m/uL Hgb (13.0-17.5) gm/dL Hct (39.0-53.0) % RDW (11.5-15.5) % Plt Count (150-450) k/uL Neutrophils # (1.3-7.7) k/uL ABG pCO2 34 L (35-45) mmHg ABG pO2 82 L (83-108) mmHg Hemoglobin 6.7 L* (13.0-17.5) gm/dL Potassium (3.5-5.1) mmol/L Chloride (98-107) mmol/L Carbon Dioxide (22-30) mmol/L BUN (9-20) mg/dL Creatinine (0.66-1.25) mg/dL POC Glucose (mg/dL) (70-110) mg/dL Calcium (8.4-10.2) mg/dL Ionized Calcium Krystal (4.5-5.3) mg/dL Albumin 1.7 L (3.5-5.0) g/dL Triglycerides (0.00-149.00) mg/dL Procalcitonin (0.02-0.50) ng/mL Urine Protein (Negative) Urine Blood (Negative) Ur Leukocyte Esterase (Negative) Urine RBC (0-5) /hpf Urine Bacteria (None) /hpf Urine Yeast (Budding) (None) /hpf Crossmatch Assessment and Plan Assessment: Impression: Acute hypoxic respiratory failure requiring intubation mechanical ventilation secondary to aspiration. Status post tracheostomy on 12/10/2023 patient continues to have a cavitary lesion/lung abscess involving the right upper lobe. Status post J-tube placement 11/16/2023, multiple complications since then related to the J-tube placement requiring multiple surgeries. Ongoing leak around the J-tube, surgery is addressing not planning any surgical intervention at this point, and for feeding recommending either trickle feeds or TPN both. Acute peritonitis secondary to above, secondary to small bowel perforation with abdominal contamination Septic shock secondary to above Paroxysmal atrial fibrillation Acute kidney injury requiring hemodialysis secondary to sepsis and septic shock, last hemodialysis was on the , apparently patient is not requiring hem odialysis since then and nephrology planning to discontinue his dialysis catheter from the left groin Weight loss secondary to non-Hodgkin's lymphoma Acute aspiration pneumonia/right upper lobe lung abscess Acute aspiration during upper endoscopy most likely secondary to gastric outlet obstruction secondary to non-Hodgkin's lymphoma based on the pathology from stomach biopsies 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 Today the patient will go on pressure support of 8 and CPAP not quite ready to be extubated. Critical illness polyneuropathy Metabolic encephalopathy Malfunctioning of the J-tube Recommendation: Continue ventilatory support, continue AC mode of mechanical ventilation for now Continue propofol, however I plan to discontinue today and hopefully go back on Precedex if tolerated. Nutritional support patient is now on TPN Surgery to decide on the issues related to jejunostomy tube and malfunction Continue antibiotics including daptomycin and Zosyn, Eraxis was added by infectious disease Close monitoring of daily labs Continue GI and DVT prophylaxis Family updated again on his condition Remains critically ill Prognosis is extremely poor and guarded Care time is over 30 minutes Will continue to follow Time with Patient: Greater than 30
[2023-12-26 11:32] LABS: Glucose,Whole Blood 81 mg/dL (70-110)
[2023-12-26] MEDS: DEXMEDETOMIDINE/0.9% NACL(PMX) 400 MCG in EMPTY BAG 1 BAG IV SCH (11:36)
[2023-12-26] MEDS: CALCIUM GLUCONATE IN NACL 1 GM in SALINE 1 100ML.BAG IVPB ONE (11:44)
[2023-12-26] MEDS: ANIDULAFUNGIN 100 MG in SODIUM CHLORIDE 0.9% 100 ML IVPB SCH (12:27)
[2023-12-26] MEDS: MIDODRINE 5 MG TAB PO SCH (12:45)
--- NOTE | 2023-12-26 13:35 | P.PN ---
Subjective Progress Note Date: 12/26/23 CHIEF COMPLAINT: Abdominal pain HISTORY OF PRESENT ILLNESS: Patient remains in the ICU on mechanical vent ilation. Has tracheostomy. Patient continues to have leaking from the J-tube. Tube feeds currently remain on hold. Patient does have TPN for nutrition support. Patient's hemoglobin did drop from 8.2-6.8 and he is receiving a unit of blood. There is been no blood in the stools or melanotic stools per nursing staff. WBC 11.6 platelets 86. Wound VAC was changed yesterday. Our IR team are not able to exchange the J-tube. [facility] declined transfer. Surgeon placed sutures around J-tube to help with leaking. J-tube continues to leak. PHYSICAL EXAM: VITAL SIGNS: Reviewed. GENERAL: no acute distress. HEENT: Tracheostomy site clean dry and intact ABDOMEN: Soft. Nondistended. Midline incision with wound VAC in place and intact. J-tube with bilious drainage noted. Skin is irritated and erythematous from drainage. Sutures are intact. ASSESSMENT: 1. 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 Status post J-tube placement and revision for small bowel obstruction 2. Abdominal wound dehiscence status post wound VAC placement 3. Status post tracheostomy PLAN: -Surgeon is planning on trying to exchange J-tube -Continue to monitor leakage from J-tube site -Tube feeds currently on hold -Continue TPN for nutrition support -Continue zinc barrier cream around J-tube -Nursing staff educated not to moved bolster to the J-tube. Okay to apply 1 layer of gauze around J-tube. Physician [employer] note has been reviewed by physician. Signing provider agrees with the documented findings, assessment, and plan of care. Objective - Vital Signs Vital signs: Vital Signs Temp 98.5 F 12/26/23 08:00 Pulse 84 12/26/23 12:00 Resp 33 H 12/26/23 12:00 BP 91/53 12/26/23 12:00 Pulse Ox 94 L 12/26/23 12:00 FiO2 30 12/26/23 12:09 Intake & Output 12/25/23 12/26/23 12/26/23 18:59 06:59 18:59 Intake Total 1218.963 551.439 515.355 Output Total 380 855 220 Balance 838.963 -303.561 295.355 Weight 94.3 kg 98.8 kg Intake: IV 695 110 50 0.9 KVO 95 110 50 Anidulafungin 200 mg In 200 Sodium Chloride 0.9% 200 ml @ 84 mls/hr IVPB ONCE ONE Rx#:[id number] DAPTOmycin 600 mg In 50 Sodium Chloride 0.9% 50 ml @ 100 mls/hr IVPB Q48H [facility] Rx#:[id number] Dextrose 5% in Water 1, 250 000 ml @ 125 mls/hr IV . Q8H [facility] Rx#:[id number] Piperacillin-Tazobactam 3 100 .375 gm In Sodium Chloride 0.9% 100 ml @ 25 mls/hr IVPB Q12HR [facility] Rx #:[id number] Intake, IV Titration 523.963 441.439 155.355 Amount Dexmedetomidine/0.9% NaCl 3.293 (Pmx) 400 mcg In Empty Bag 1 bag @ 0.2 MCG/KG/HR 4.94 mls/hr IV .[id number] [facility] Rx#:[id number] Norepinephrine 4 mg In 254 54.106 22.062 Sodium Chloride 0.9% 250 ml @ 0.03 MCG/KG/MIN 11. 03 mls/hr IV .Q23H2M [facility] Rx#:[id number] Sodium Acetate 30 meq 30 Potassium Acetate 30 meq Magnesium Sulfate gm 1 gm Calcium Gluconate 1 gm In Amino Acids 5 %/ Dextrose 20 % 1,000 ml @ 65 mls/hr IV .BY DURATION [facility] Rx#:[id number] propofoL 1,000 mg In 269.963 387.333 100.000 Empty Bag 1 bag @ 15 MCG/ KG/MIN 8.685 mls/hr IV . [id number] [facility] Rx#:[id number] Blood Product 0 310 Rc As-1 Unit 0 0 [id number] Output: Drainage 140 50 50 Right Abdomen 140 50 50 Urine 240 805 170 Other: Voiding Method Indwelling Catheter Indwelling Catheter ABP, PAP, CO, CI - Last Documented Arterial Blood Pressure 109/55 - Labs CBC & Chem 7: 12/26/23 16:30 12/26/23 04:10 Labs: Abnormal Lab Results - Last 24 Hours (Table) 12/23/23 12/25/23 12/25/23 Range/Units 17:15 12:52 16:30 WBC (3.8-10.6) k/uL RBC (4.30-5.90) m/uL Hgb (13.0-17.5) gm/dL Hct (39.0-53.0) % RDW (11.5-15.5) % Plt Count (150-450) k/uL Neutrophils # (1.3-7.7) k/uL ABG pCO2 (35-45) mmHg ABG pO2 (83-108) mmHg Hemoglobin (13.0-17.5) gm/dL Potassium (3.5-5.1) mmol/L Chloride (98-107) mmol/L Carbon Dioxide (22-30) mmol/L BUN (9-20) mg/dL Creatinine (0.66-1.25) mg/dL POC Glucose (mg/dL) (70-110) mg/dL Calcium (8.4-10.2) mg/dL Ionized Calcium Krystal (4.5-5.3) mg/dL Albumin (3.5-5.0) g/dL Triglycerides (0.00-149.00) mg/dL Procalcitonin 0.55 H (0.02-0.50) ng/mL Urine Protein Trace H (Negative) Urine Blood Moderate H (Negative) Ur Leukocyte Esterase Small H (Negative) Urine RBC 15 H (0-5) /hpf Urine Bacteria Occasional H (None) /hpf Urine Yeast (Budding) Many H (None) /hpf Crossmatch See Detail 12/25/23 12/25/23 12/25/23 Range/Units 17:47 17:57 18:14 WBC (3.8-10.6) k/uL RBC (4.30-5.90) m/uL Hgb (13.0-17.5) gm/dL Hct (39.0-53.0) % RDW (11.5-15.5) % Plt Count (150-450) k/uL Neutrophils # (1.3-7.7) k/uL ABG pCO2 (35-45) mmHg ABG pO2 (83-108) mmHg Hemoglobin (13.0-17.5) gm/dL Potassium (3.5-5.1) mmol/L Chloride (98-107) mmol/L Carbon Dioxide (22-30) mmol/L BUN (9-20) mg/dL Creatinine (0.66-1.25) mg/dL POC Glucose (mg/dL) 36 L* 36 L* 129 H (70-110) mg/dL Calcium (8.4-10.2) mg/dL Ionized Calcium Krystal (4.5-5.3) mg/dL Albumin (3.5-5.0) g/dL Triglycerides (0.00-149.00) mg/dL Procalcitonin (0.02-0.50) ng/mL Urine Protein (Negative) Urine Blood (Negative) Ur Leukocyte Esterase (Negative) Urine RBC (0-5) /hpf Urine Bacteria (None) /hpf Urine Yeast (Budding) (None) /hpf Crossmatch 12/26/23 12/26/23 12/26/23 Range/Units 04:10 04:10 04:10 WBC 11.6 H (3.8-10.6) k/uL RBC 2.36 L (4.30-5.90) m/uL Hgb 6.8 L* (13.0-17.5) gm/dL Hct 21.1 L (39.0-53.0) % RDW 18.6 H (11.5-15.5) % Plt Count 86 L (150-450) k/uL Neutrophils # 9.1 H (1.3-7.7) k/uL ABG pCO2 (35-45) mmHg ABG pO2 (83-108) mmHg Hemoglobin (13.0-17.5) gm/dL Potassium 3.3 L (3.5-5.1) mmol/L Chloride 115 H (98-107) mmol/L Carbon Dioxide 21 L (22-30) mmol/L BUN 53 H (9-20) mg/dL Creatinine 1.84 H (0.66-1.25) mg/dL POC Glucose (mg/dL) (70-110) mg/dL Calcium 6.6 L (8.4-10.2) mg/dL Ionized Calcium Krystal 4.3 L (4.5-5.3) mg/dL Albumin 1.7 L (3.5-5.0) g/dL Triglycerides 240.00 H (0.00-149.00) mg/dL Procalcitonin (0.02-0.50) ng/mL Urine Protein (Negative) Urine Blood (Negative) Ur Leukocyte Esterase (Negative) Urine RBC (0-5) /hpf Urine Bacteria (None) /hpf Urine Yeast (Budding) (None) /hpf Crossmatch 12/26/23 Range/Units 04:58 WBC (3.8-10.6) k/uL RBC (4.30-5.90) m/uL Hgb (13.0-17.5) gm/dL Hct (39.0-53.0) % RDW (11.5-15.5) % Plt Count (150-450) k/uL Neutrophils # (1.3-7.7) k/uL ABG pCO2 34 L (35-45) mmHg ABG pO2 82 L (83-108) mmHg Hemoglobin 6.7 L* (13.0-17.5) gm/dL Potassium (3.5-5.1) mmol/L Chloride (98-107) mmol/L Carbon Dioxide (22-30) mmol/L BUN (9-20) mg/dL Creatinine (0.66-1.25) mg/dL POC Glucose (mg/dL) (70-110) mg/dL Calcium (8.4-10.2) mg/dL Ionized Calcium Krystal (4.5-5.3) mg/dL Albumin (3.5-5.0) g/dL Triglycerides (0.00-149.00) mg/dL Procalcitonin (0.02-0.50) ng/mL Urine Protein (Negative) Urine Blood (Negative) Ur Leukocyte Esterase (Negative) Urine RBC (0-5) /hpf Urine Bacteria (None) /hpf Urine Yeast (Budding) (None) /hpf Crossmatch Assessment and Plan Assessment: 73 yo male s/p j tube insertion -pt has continued drainage despite securing the bumper -j tube to drainage for now in order to trouble shoot drainage Time with Patient: Less than 30
[2023-12-26] MEDS: DESMOPRESSIN ACETATE 26 MCG in SODIUM CHLORIDE 0.9% 50 ML IVPB ONE (13:54)
--- NOTE | 2023-12-26 14:21 | P.PN ---
Subjective Progress Note Date: 12/26/23 I am following-up with patient and he is accompanied with his children and they stated he been sleepy since on IV sedation. Per nurse he was on IV Propofol 50mcg/kg/min and has been held in the morning. Also on IV Precedex. Objective - Vital Signs Vital signs: Vital Signs Temp 98.5 F 12/26/23 08:00 Pulse 84 12/26/23 12:00 Resp 33 H 12/26/23 12:00 BP 91/53 12/26/23 12:00 Pulse Ox 94 L 12/26/23 12:00 FiO2 30 12/26/23 12:09 Intake & Output 12/25/23 12/26/23 12/26/23 18:59 06:59 18:59 Intake Total 1218.963 551.439 515.355 Output Total 380 855 220 Balance 838.963 -303.561 295.355 Weight 94.3 kg 98.8 kg Intake: IV 695 110 50 0.9 KVO 95 110 50 Anidulafungin 200 mg In 200 Sodium Chloride 0.9% 200 ml @ 84 mls/hr IVPB ONCE ONE Rx#:[id number] DAPTOmycin 600 mg In 50 Sodium Chloride 0.9% 50 ml @ 100 mls/hr IVPB Q48H [facility] Rx#:[id number] Dextrose 5% in Water 1, 250 000 ml @ 125 mls/hr IV . Q8H [facility] Rx#:[id number] Piperacillin-Tazobactam 3 100 .375 gm In Sodium Chloride 0.9% 100 ml @ 25 mls/hr IVPB Q12HR [facility] Rx #:[id number] Intake, IV Titration 523.963 441.439 155.355 Amount Dexmedetomidine/0.9% NaCl 3.293 (Pmx) 400 mcg In Empty Bag 1 bag @ 0.2 MCG/KG/HR 4.94 mls/hr IV .[id number] [facility] Rx#:[id number] Norepinephrine 4 mg In 254 54.106 22.062 Sodium Chloride 0.9% 250 ml @ 0.03 MCG/KG/MIN 11. 03 mls/hr IV .Q23H2M [facility] Rx#:[id number] Sodium Acetate 30 meq 30 Potassium Acetate 30 meq Magnesium Sulfate gm 1 gm Calcium Gluconate 1 gm In Amino Acids 5 %/ Dextrose 20 % 1,000 ml @ 65 mls/hr IV .BY DURATION [facility] Rx#:[id number] propofoL 1,000 mg In 269.963 387.333 100.000 Empty Bag 1 bag @ 15 MCG/ KG/MIN 8.685 mls/hr IV . [id number] [facility] Rx#:[id number] Blood Product 0 310 Rc As-1 Unit 0 0 [id number] Output: Drainage 140 50 50 Right Abdomen 140 50 50 Urine 240 805 170 Other: Voiding Method Indwelling Catheter Indwelling Catheter ABP, PAP, CO, CI - Last Documented Arterial Blood Pressure 109/55 - Exam General: Lying in bed and does not appear in acute distress. Resp: Trach on vent. Neuro: Limited. Was on IV Propofol and stopped. Is on IV Precedex. Is severely drowsy and minimally opens eyes to verbal stimuli. Otherwise not following commands. Drowsy but is awakeable to voice. - Labs CBC & Chem 7: 12/26/23 04:10 12/26/23 04:10 Labs: Abnormal Lab Results - Last 24 Hours (Table) 12/23/23 12/25/23 12/25/23 Range/Units 17:15 12:52 16:30 WBC (3.8-10.6) k/uL RBC (4.30-5.90) m/uL Hgb (13.0-17.5) gm/dL Hct (39.0-53.0) % RDW (11.5-15.5) % Plt Count (150-450) k/uL Neutrophils # (1.3-7.7) k/uL ABG pCO2 (35-45) mmHg ABG pO2 (83-108) mmHg Hemoglobin (13.0-17.5) gm/dL Potassium (3.5-5.1) mmol/L Chloride (98-107) mmol/L Carbon Dioxide (22-30) mmol/L BUN (9-20) mg/dL Creatinine (0.66-1.25) mg/dL POC Glucose (mg/dL) (70-110) mg/dL Calcium (8.4-10.2) mg/dL Ionized Calcium Krystal (4.5-5.3) mg/dL Albumin (3.5-5.0) g/dL Triglycerides (0.00-149.00) mg/dL Procalcitonin 0.55 H (0.02-0.50) ng/mL Urine Protein Trace H (Negative) Urine Blood Moderate H (Negative) Ur Leukocyte Esterase Small H (Negative) Urine RBC 15 H (0-5) /hpf Urine Bacteria Occasional H (None) /hpf Urine Yeast (Budding) Many H (None) /hpf Crossmatch See Detail 12/25/23 12/25/23 12/25/23 Range/Units 17:47 17:57 18:14 WBC (3.8-10.6) k/uL RBC (4.30-5.90) m/uL Hgb (13.0-17.5) gm/dL Hct (39.0-53.0) % RDW (11.5-15.5) % Plt Count (150-450) k/uL Neutrophils # (1.3-7.7) k/uL ABG pCO2 (35-45) mmHg ABG pO2 (83-108) mmHg Hemoglobin (13.0-17.5) gm/dL Potassium (3.5-5.1) mmol/L Chloride (98-107) mmol/L Carbon Dioxide (22-30) mmol/L BUN (9-20) mg/dL Creatinine (0.66-1.25) mg/dL POC Glucose (mg/dL) 36 L* 36 L* 129 H (70-110) mg/dL Calcium (8.4-10.2) mg/dL Ionized Calcium Krystal (4.5-5.3) mg/dL Albumin (3.5-5.0) g/dL Triglycerides (0.00-149.00) mg/dL Procalcitonin (0.02-0.50) ng/mL Urine Protein (Negative) Urine Blood (Negative) Ur Leukocyte Esterase (Negative) Urine RBC (0-5) /hpf Urine Bacteria (None) /hpf Urine Yeast (Budding) (None) /hpf Crossmatch 12/26/23 12/26/23 12/26/23 Range/Units 04:10 04:10 04:10 WBC 11.6 H (3.8-10.6) k/uL RBC 2.36 L (4.30-5.90) m/uL Hgb 6.8 L* (13.0-17.5) gm/dL Hct 21.1 L (39.0-53.0) % RDW 18.6 H (11.5-15.5) % Plt Count 86 L (150-450) k/uL Neutrophils # 9.1 H (1.3-7.7) k/uL ABG pCO2 (35-45) mmHg ABG pO2 (83-108) mmHg Hemoglobin (13.0-17.5) gm/dL Potassium 3.3 L (3.5-5.1) mmol/L Chloride 115 H (98-107) mmol/L Carbon Dioxide 21 L (22-30) mmol/L BUN 53 H (9-20) mg/dL Creatinine 1.84 H (0.66-1.25) mg/dL POC Glucose (mg/dL) (70-110) mg/dL Calcium 6.6 L (8.4-10.2) mg/dL Ionized Calcium Krystal 4.3 L (4.5-5.3) mg/dL Albumin 1.7 L (3.5-5.0) g/dL Triglycerides 240.00 H (0.00-149.00) mg/dL Procalcitonin (0.02-0.50) ng/mL Urine Protein (Negative) Urine Blood (Negative) Ur Leukocyte Esterase (Negative) Urine RBC (0-5) /hpf Urine Bacteria (None) /hpf Urine Yeast (Budding) (None) /hpf Crossmatch 12/26/23 Range/Units 04:58 WBC (3.8-10.6) k/uL RBC (4.30-5.90) m/uL Hgb (13.0-17.5) gm/dL Hct (39.0-53.0) % RDW (11.5-15.5) % Plt Count (150-450) k/uL Neutrophils # (1.3-7.7) k/uL ABG pCO2 34 L (35-45) mmHg ABG pO2 82 L (83-108) mmHg Hemoglobin 6.7 L* (13.0-17.5) gm/dL Potassium (3.5-5.1) mmol/L Chloride (98-107) mmol/L Carbon Dioxide (22-30) mmol/L BUN (9-20) mg/dL Creatinine (0.66-1.25) mg/dL POC Glucose (mg/dL) (70-110) mg/dL Calcium (8.4-10.2) mg/dL Ionized Calcium Krystal (4.5-5.3) mg/dL Albumin (3.5-5.0) g/dL Triglycerides (0.00-149.00) mg/dL Procalcitonin (0.02-0.50) ng/mL Urine Protein (Negative) Urine Blood (Negative) Ur Leukocyte Esterase (Negative) Urine RBC (0-5) /hpf Urine Bacteria (None) /hpf Urine Yeast (Budding) (None) /hpf Crossmatch Assessment and Plan Assessment: * Altered mental status, likely due to toxic metabolic encephalopathy, remarkably improved * Generalized weakness, 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--is mildly improving * Aspiration pneumonitis from retained gastric contents * Ventilator dependent respiratory failure, status post tracheostomy 12/10/2023 * Status post pulmonary edema * History of small bowel perforation at the site of jejunostomy tube tip with balloon * Peritonitis, secondary to above * Acute kidney injury, with hemodialysis started 12/05/2023 * Acute recurrent atrial fibrillation, currently in sinus mechanism * Septic shock, recovered * Bacteremia with coagulase-negative staph * Hypertension * Anemia * Thrombocytopenia, resolved * History of gastric B-cell lymphoma, with gastric outlet obstruction. Plan: * Stat EEG was performed on 12/08/2023: It revealed generalized slowing of severe degree. This is suggestive of generalized cerebral dysfunction as can be seen with toxic metabolic encephalopathy or related to diffuse structural brain about a day. Clinical correlation is recommended. Sporadic, periodic generalized sharp-appearing waves were seen. This may suggest underlying cortical irritability. No electrographic seizure was recorded. * Therefore, Dr. Hernández empirically started on Keppra 500 mg daily. I lowered to 250mg bid on 12/25/23 since mentation is improving. . * Repeat EEG on 12/12/2023: Is abnormal. The study is limited because of diffuse myogenic artifact. The background slowing is suggestive of severe encephalopathy. Otherwise no focal slowing, epileptiform discharges or seizure on the EEG. * CT head performed 12/07/2023 revealed no acute intracranial process. Some atrophy. I personally reviewed CT head agree with the findings. * PT and OT are consulted and patient will benefit from rehab and if possible inpatient. * Recommend outpatient EMG with NCS of uppers and lowers if still has weakness after therapy. * Patient currently on daptomycin and Zosyn. ID following. * For medical management as per critical care and other specialties on board. The plan is discussed with patient's children who are at bedside. Will follow-up sporadically. Dr. Hernández will resume neurology service on 12/28/2023. Time with Patient: Less than 30
--- NOTE | 2023-12-26 15:12 | P.PN ---
Subjective Progress Note Date: 12/26/23 This is a 73-year-old male patient of Dr. Ibanez we assumed care of this patient today. Patient has had a prolonged hospital stay today is . Patient initially presented to the hospital on November 11 for a scheduled upper endoscopy as part of an evaluation for chronic epigastric pain which has been ongoing over the last 8 months. Patient has also had a 22 pound weight loss. He had a CT abdomen pelvis done outpatient which revealed thickening of the antral wall with pathological adenopathy posterior to the stomach suspicious for neoplasm. Patient underwent EGD with biopsy. The scope could not be advanced to the pylorus into the duodenum suggestive of a gastric outlet obstruction and biopsies were done from the gastric ulceration. Was admitted to the hospital and on November 15 patient went for a tube placement and Mediport insertion. 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 Patient's hospital stay has been complicated by atrial fibrillation with rapid ventricular rate currently he is rate controlled. He also had renal failure requiring hemodialysis with a creatinine down to 1.84 today and has no longer being dialyzed. Patient has had prolonged intubation for which she was trached he remains on the mechanical ventilator he had a difficult time with weaning yesterday. Patient has had leakage around the J-tube site for this reason he has been started on TPN and tube feedings have been placed on hold. Surgery did place 2 stitches at the J-tube site yesterday however he still has leakage and he is being considered for a secondary surgery to insert a larger J-tube. Initially surgery had recommended transfer out for tertiary care and further surgical evaluation however after evaluation by Jeyson Ramirez the transfer was denied. Chest x-ray today reveals a right apical basilar opacity which remains unchanged. He remains on IV daptomycin and IV anidulafungin as well as IV Zosyn. He is receiving propofol for sedation and was on Levophed which is currently being weaned and his MAP is maintaining above 65 at this time. Blood work today reveals a white blood cell count of 11.6, hemoglobin 6.8, platelet count of 86, BUN of 53, creatinine of 1.84, sodium 139, potassium 3.3. Procalcitonin level was checked yesterday and positive at 0.55. Unable to complete a review of systems at this time as patient is currently intubated and sedated. PHYSICAL EXAMINATION: GENERAL: The patient is alert and oriented x0 not in any acute distress. Well developed, well nourished. Sedated. HEENT: Pupils are round and equally reacting to light. EOMI. No scleral icterus. No conjunctival pallor. Normocephalic, atraumatic. No pharyngeal erythema. No thyromegaly. CARDIOVASCULAR: S1 and S2 present. No murmurs, rubs, or gallops. PULMONARY: Chest is clear to auscultation, no wheezing or crackles. ABDOMEN: Soft, nontender, nondistended, normoactive bowel sounds. No palpable organomegaly. Drain coming from the LLQ, Midline Wound VAC in place MUSCULOSKELETAL: No joint swelling or deformity. EXTREMITIES: No cyanosis, clubbing, or pedal edema. NEUROLOGICAL: Gross neurological examination did not reveal any focal deficits. SKIN: No rashes. Assessment and Plan -Aspiration pneumonitis bilateral from retained gastric contents mostly food and liquids, causing acute hypoxic respiratory failure: On presentation: Subsequent sputum culture November 25: Citrobacter freundii, Pseudomonas aeruginosa. December 13: Klebsiella oxytoca, Pseudomonas aeruginosa IV meropenem-was received originally. Now receiving IV daptomycin and Zosyn Pulmonary following Started on IV antifungal -Probable lung abscess larger 1 on the right side-patient cultures are growing Pseudomonas and Klebsiella oxytoca IV Zosyn, daptomycin -Acute pulmonary edema and fluid overload from hypoalbuminemic state and fluids from IV.:: Has been getting Lasix and dialysis: Both held -Altered mentation. Possibly encephalopathy. Could be delirium.: Not i mproving CT brain [December 06] nothing acute Neurology following EEG-evidence of generalized cerebral dysfunction and sporadic intermittent higher amplitude sharply contoured waves mainly bifrontal. Showing cortical irritability. Keppra was started on December 07 -Critical care poly- Pedro neuropathy: Slow to respond PT OT -Gallstones, asymptomatic -Small l bowel perforation at site of jejunostomy tube tip with balloon..: Portion of small bowel resected. On November 24. New J-tube was placed.- drainage to gravity:-Now discontinued December 19: J-tube blocked. J-tube replaced on December 20 over wire December 21: Leaking around the J-tube site. Feeding held December 23: J feeding was started yesterday evening but again started leaking increasingly around the J-tube site-feeding held again December 24: J-tube feeding has been held. -Acute kidney injury. Possible ATN from hypotensive shock: Slow to respond Renal ultrasound unremarkable. Started on renal replacement therapy on . Followed by nephrology-dialysis has been on hold now -Nutrition Jejunostomy tube placed November [address] Ewing Received TPN-this was discontinued. Restarted on December 24 -Midline abdominal incision wound dehiscence Wound VAC placed -Acute recurrent atrial fibrillation-converted to sinus rhythm Received IV amiodarone. Cardiology following Lopressor -Acute hypoxic respiratory failure from aspiration pneumonia, status post ventilator assisted: Reintubated November 25. FiO2 35 PEEP of 5 Tracheostomy tube-by Dr. Ewing on December 09 -Septic shock, recovered -Hypertension Patient started on Cleviprex-discontinued -Intermittent hypotension Intermittent use of Levophed. 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 Also anemia of blood draw. Iron deficiency anemia Received 3rd unit of blood . IV iron. -Severe thrombocytopenia. Would consider coagulation disorder secondary to infection., In the setting of underlying lymphoma.: Recovered Hematology following. 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 difficile ruled out. -Large superficial gastric antral ulceration involving the gastric antrum extending into the pylorus with gastric outlet obstruction. 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 Port placed. For outpatient PET scan. -Full code Greater than 35 minutes have been spent with the patient family at the bedside in the intensive care unit and coronation of care and chart review for this lengthy hospital stay. At this time patient is feeling wishes for patient to remain full code would like to continue with current antibiotic therapies and TPN with hopes to have a secondary surgery to replace the J-tube be resumed on tube feedings. Patient continues on IV Zosyn IV daptomycin and IV anidulafungin. Recommend to repeat blood cultures CBC and BMP in the morning. Patient will receive 1 unit of packed red blood cells today and repeat blood work in the morning. No signs of active bleeding at this time. The impression and plan of care has been dictated by Carol Ulrich, Nurse Practitioner as directed. Dr. Jozef MD I have performed a history and physical examination and medical decision making of this patient, discussed the same with the dictator, and agree with the dictators assessment and plan as written, documented as a scribe. Based on total visit time, I have performed more than 50% of this visit. Objective - Vital Signs Vital signs: Vital Signs Temp 98.1 F 12/26/23 06:42 Pulse 80 12/26/23 08:42 Resp 36 H 12/26/23 06:45 BP 127/55 12/26/23 06:42 Pulse Ox 97 12/26/23 06:45 FiO2 30 12/26/23 08:27 Intake & Output 12/25/23 12/26/23 12/26/23 18:59 06:59 18:59 Intake Total 1218.963 551.439 Output Total 380 855 Balance 838.963 -303.561 Weight 94.3 kg 98.8 kg Intake: IV 695 110 0.9 KVO 95 110 Anidulafungin 200 mg In 200 Sodium Chloride 0.9% 200 ml @ 84 mls/hr IVPB ONCE ONE Rx#:[id number] DAPTOmycin 600 mg In 50 Sodium Chloride 0.9% 50 ml @ 100 mls/hr IVPB Q48H [facility] Rx#:[id number] Dextrose 5% in Water 1, 250 000 ml @ 125 mls/hr IV . Q8H [facility] Rx#:[id number] Piperacillin-Tazobactam 3 100 .375 gm In Sodium Chloride 0.9% 100 ml @ 25 mls/hr IVPB Q12HR [facility] Rx #:[id number] Intake, IV Titration 523.963 441.439 Amount Norepinephrine 4 mg In 254 54.106 Sodium Chloride 0.9% 250 ml @ 0.03 MCG/KG/MIN 11. 03 mls/hr IV .Q23H2M [facility] Rx#:[id number] propofoL 1,000 mg In 269.963 387.333 Empty Bag 1 bag @ 15 MCG/ KG/MIN 8.685 mls/hr IV . [id number] [facility] Rx#:[id number] Blood Product 0 Unit 0 Output: Drainage 140 50 Right Abdomen 140 50 Urine 240 805 Other: Voiding Method Indwelling Catheter Indwelling Catheter ABP, PAP, CO, CI - Last Documented Arterial Blood Pressure 127/54 - Labs CBC & Chem 7: 12/26/23 04:10 12/26/23 04:10 Labs: Abnormal Lab Results - Last 24 Hours (Table) 12/23/23 12/25/23 12/25/23 Range/Units 17:15 12:52 12:52 WBC (3.8-10.6) k/uL RBC (4.30-5.90) m/uL Hgb (13.0-17.5) gm/dL Hct (39.0-53.0) % RDW (11.5-15.5) % Plt Count (150-450) k/uL Neutrophils # (1.3-7.7) k/uL ABG pCO2 (35-45) mmHg ABG pO2 (83-108) mmHg Hemoglobin (13.0-17.5) gm/dL Potassium (3.5-5.1) mmol/L Chloride (98-107) mmol/L Carbon Dioxide (22-30) mmol/L BUN (9-20) mg/dL Creatinine (0.66-1.25) mg/dL POC Glucose (mg/dL) (70-110) mg/dL Calcium (8.4-10.2) mg/dL Ionized Calcium Krystal (4.5-5.3) mg/dL Albumin 1.9 L (3.5-5.0) g/dL Procalcitonin 0.55 H (0.02-0.50) ng/mL Urine Protein (Negative) Urine Blood (Negative) Ur Leukocyte Esterase (Negative) Urine RBC (0-5) /hpf Urine Bacteria (None) /hpf Urine Yeast (Budding) (None) /hpf Crossmatch See Detail 12/25/23 12/25/23 12/25/23 Range/Units 16:30 17:47 17:57 WBC (3.8-10.6) k/uL RBC (4.30-5.90) m/uL Hgb (13.0-17.5) gm/dL Hct (39.0-53.0) % RDW (11.5-15.5) % Plt Count (150-450) k/uL Neutrophils # (1.3-7.7) k/uL ABG pCO2 (35-45) mmHg ABG pO2 (83-108) mmHg Hemoglobin (13.0-17.5) gm/dL Potassium (3.5-5.1) mmol/L Chloride (98-107) mmol/L Carbon Dioxide (22-30) mmol/L BUN (9-20) mg/dL Creatinine (0.66-1.25) mg/dL POC Glucose (mg/dL) 36 L* 36 L* (70-110) mg/dL Calcium (8.4-10.2) mg/dL Ionized Calcium Krystal (4.5-5.3) mg/dL Albumin (3.5-5.0) g/dL Procalcitonin (0.02-0.50) ng/mL Urine Protein Trace H (Negative) Urine Blood Moderate H (Negative) Ur Leukocyte Esterase Small H (Negative) Urine RBC 15 H (0-5) /hpf Urine Bacteria Occasional H (None) /hpf Urine Yeast (Budding) Many H (None) /hpf Crossmatch 12/25/23 12/26/23 12/26/23 Range/Units 18:14 04:10 04:10 WBC 11.6 H (3.8-10.6) k/uL RBC 2.36 L (4.30-5.90) m/uL Hgb 6.8 L* (13.0-17.5) gm/dL Hct 21.1 L (39.0-53.0) % RDW 18.6 H (11.5-15.5) % Plt Count 86 L (150-450) k/uL Neutrophils # 9.1 H (1.3-7.7) k/uL ABG pCO2 (35-45) mmHg ABG pO2 (83-108) mmHg Hemoglobin (13.0-17.5) gm/dL Potassium 3.3 L (3.5-5.1) mmol/L Chloride 115 H (98-107) mmol/L Carbon Dioxide 21 L (22-30) mmol/L BUN 53 H (9-20) mg/dL Creatinine 1.84 H (0.66-1.25) mg/dL POC Glucose (mg/dL) 129 H (70-110) mg/dL Calcium 6.6 L (8.4-10.2) mg/dL Ionized Calcium Krystal 4.3 L (4.5-5.3) mg/dL Albumin (3.5-5.0) g/dL Procalcitonin (0.02-0.50) ng/mL Urine Protein (Negative) Urine Blood (Negative) Ur Leukocyte Esterase (Negative) Urine RBC (0-5) /hpf Urine Bacteria (None) /hpf Urine Yeast (Budding) (None) /hpf Crossmatch 12/26/23 12/26/23 Range/Units 04:10 04:58 WBC (3.8-10.6) k/uL RBC (4.30-5.90) m/uL Hgb (13.0-17.5) gm/dL Hct (39.0-53.0) % RDW (11.5-15.5) % Plt Count (150-450) k/uL Neutrophils # (1.3-7.7) k/uL ABG pCO2 34 L (35-45) mmHg ABG pO2 82 L (83-108) mmHg Hemoglobin 6.7 L* (13.0-17.5) gm/dL Potassium (3.5-5.1) mmol/L Chloride (98-107) mmol/L Carbon Dioxide (22-30) mmol/L BUN (9-20) mg/dL Creatinine (0.66-1.25) mg/dL POC Glucose (mg/dL) (70-110) mg/dL Calcium (8.4-10.2) mg/dL Ionized Calcium Krystal (4.5-5.3) mg/dL Albumin 1.7 L (3.5-5.0) g/dL Procalcitonin (0.02-0.50) ng/mL Urine Protein (Negative) Urine Blood (Negative) Ur Leukocyte Esterase (Negative) Urine RBC (0-5) /hpf Urine Bacteria (None) /hpf Urine Yeast (Budding) (None) /hpf Crossmatch Assessment and Plan Time with Patient: Greater than 30
[2023-12-26] MEDS ORDERED: 1: MVI, ADULT NO.4 WITH VIT K 10 ML, TRACE (CONC-1ML/DOSE) 1 ML, SODIUM ACETATE 30 MEQ, IV SCH (16:00)
[2023-12-26 17:44] LABS: Anisocytosis Slight; Basophils % (A) 0 %; Eosinophils % (A) 0 %; HCT 26.7 % (39.0-53.0); Hypochromasia Moderate; Lymphocytes # (A) 2.1 k/uL (1.0-4.8); Lymphocytes % (A) 16 %; MCH 29.3 pg (25.0-35.0); MCHC 31.9 g/dL (31.0-37.0); MCV 91.9 fL (80.0-100.0); Mean Platelet Volume 9.1; Monocytes # (A) 0.3 k/uL (0-1.0); Monocytes % (A) 2 %; Neutrophils # (A) 10.6 k/uL (1.3-7.7); Neutrophils % (A) 81 %; RBC 2.91 m/uL (4.30-5.90); RDW 17.9 % (11.5-15.5); WBC 13.2 k/uL (3.8-10.6)
[2023-12-26 17:48] LABS: Glucose,Whole Blood 141 mg/dL (70-110)
[2023-12-26 17:50] LABS: HGB 8.5 gm/dL (13.0-17.5)
[2023-12-26 17:51] LABS: Platelet Count 83 k/uL (150-450)
[2023-12-26] MEDS: 1: MVI, ADULT NO.4 WITH VIT K 10 ML, TRACE (CONC-1ML/DOSE) 1 ML, SODIUM ACETATE 30 MEQ, IV SCH (18:59)
[2023-12-26 23:06] LABS: Glucose,Whole Blood 190 mg/dL (70-110)
[2023-12-27 04:11] LABS: Anisocytosis Slight; HCT 26.2 % (39.0-53.0); HGB 8.1 gm/dL (13.0-17.5); Hypochromasia Moderate; MCH 28.9 pg (25.0-35.0); MCHC 31.1 g/dL (31.0-37.0); MCV 92.9 fL (80.0-100.0); Mean Platelet Volume 8.7; Platelet Count 100 k/uL (150-450); RBC 2.82 m/uL (4.30-5.90); WBC 10.9 k/uL (3.8-10.6)
[2023-12-27 04:14] LABS: ALT 29 U/L (4-49); AST 23 U/L (17-59); African American GFR (CKD) 40 (>60 ml/min/1.73 sqM); Albumin 1.8 g/dL (3.5-5.0); Alkaline Phosphatase 103 U/L (38-126); Anion Gap 4 mmol/L; Blood Urea Nitrogen 46 mg/dL (9-20); Calcium 6.9 mg/dL (8.4-10.2); Carbon Dioxide 19 mmol/L (22-30); Chloride 121 mmol/L (98-107); Glucose 163 mg/dL (74-99); Magnesium 1.8 mg/dL (1.6-2.3); Non-African American GFR(CKD) 34 (>60 ml/min/1.73 sqM); Phosphorus 3.9 mg/dL (2.5-4.5); Potassium 3.8 mmol/L (3.5-5.1); Sodium 144 mmol/L (137-145); Total Bilirubin 1.1 mg/dL (0.2-1.3); Total Protein 5.1 g/dL (6.3-8.2)
[2023-12-27] MEDS: MAGNESIUM SULFATE-D5W PMX 1 GM in DEXTROSE/WATER 1 100ML.BAG IVPB ONE (04:34)
[2023-12-27] MEDS: POTASSIUM CHLORIDE IVPB SCH (04:39)
[2023-12-27] MEDS: SALINE IVPB SCH (04:39)
[2023-12-27 05:15] LABS: ABG Base Excess -2.8 mmol/L; ABG HCO3 21 mmol/L (21-25); ABG Oxygen Saturation 98.4 % (94-97); ABG PCO2 31 mmHg (35-45); ABG PH 7.44 (7.35-7.45); ABG PO2 99 mmHg (83-108); ABG TCO2 22 mmol/L (19-24); Allen Test Performed? Yes
[2023-12-27 05:36] LABS: Glucose,Whole Blood 210 mg/dL (70-110)
[2023-12-27] MEDS: HYDROmorphone 0.5 MG/0.5 ML SYRINGE IVP STA (09:06)
--- NOTE | 2023-12-27 09:27 | XR ---
EXAMINATION TYPE: XR chest 1V portable DATE OF EXAM: 12/27/2023 COMPARISON: 12/26/2023 HISTORY: SOB, Follow Up FINDINGS: Indwelling tubes and catheters are unchanged. Right apical and basilar opacities persist unchanged. Stable appearance of the cardio-mediastinal structures at this time. Pleural effusion unchanged. IMPRESSION: 1. Stable portable chest. Clinical correlation and follow up until resolution is recommended. [facility], , 12/27/2023 8:05 AM
--- NOTE | 2023-12-27 10:00 | P.PN ---
Subjective Patient is seen in follow-up for acute kidney injury. Patient underwent exploratory laparotomy with small bowel obstruction NG tube replacement Sep tem2023. Nonoliguric. Started on hemodialysis November 29, 2023. Last dialysis December 18, 2023. Status post tracheostomy December 10, 2023. Renal function stable. Tube feeds currently held. Receiving TPN. Last received unit of blood December 26, 2023. Off Levophed. Vital signs stable. General: Resting in bed. HEENT: Tracheostomy noted. LUNGS: Scattered rhonchi. HEART: Regular rate and rhythm. ABDOMEN: No drainage. EXTREMITITES: Trace edema. Objective - Vital Signs Vital signs: Vital Signs Temp 97.9 F 12/27/23 04:00 Pulse 71 12/27/23 08:18 Resp 26 H 12/27/23 07:00 BP 127/88 12/27/23 07:00 Pulse Ox 97 12/27/23 07:00 FiO2 30 12/27/23 08:08 Intake & Output 12/26/23 12/27/23 12/27/23 18:59 06:59 18:59 Intake Total 010.098 8483.693 Output Total 605 635 Balance -0.252 1132.693 Weight 100.6 kg Intake: IV 110 1660 0.9 KVO 110 560 Piperacillin-Tazobactam 3 1100 .375 gm In Sodium Chloride 0.9% 100 ml @ 25 mls/hr IVPB Q12HR [facility] Rx #:[id number] Intake, IV Titration 184.748 107.693 Amount Dexmedetomidine/0.9% NaCl 32.686 107.693 (Pmx) 400 mcg In Empty Bag 1 bag @ 0.2 MCG/KG/HR 4.94 mls/hr IV .[id number] [facility] Rx#:[id number] Norepinephrine 4 mg In 22.062 Sodium Chloride 0.9% 250 ml @ 0.03 MCG/KG/MIN 11. 03 mls/hr IV .Q23H2M [facility] Rx#:[id number] Sodium Acetate 30 meq 30 Potassium Acetate 30 meq Magnesium Sulfate gm 1 gm Calcium Gluconate 1 gm In Amino Acids 5 %/ Dextrose 20 % 1,000 ml @ 65 mls/hr IV .BY DURATION [facility] Rx#:[id number] propofoL 1,000 mg In 100.000 Empty Bag 1 bag @ 15 MCG/ KG/MIN 8.685 mls/hr IV . [id number] [facility] Rx#:[id number] Blood Product 310 Rc As-1 Unit 0 [id number] Output: Drainage 190 Right Abdomen 190 Urine 415 635 Other: Voiding Method Indwelling Catheter Indwelling Catheter ABP, PAP, CO, CI - Last Documented Arterial Blood Pressure 153/65 - Labs CBC & Chem 7: 12/27/23 03:30 12/27/23 03:30 Labs: Abnormal Lab Results - Last 24 Hours (Table) 12/23/23 12/26/23 12/26/23 Range/Units 17:15 04:10 16:30 WBC 13.2 H (3.8-10.6) k/uL RBC 2.91 L (4.30-5.90) m/uL Hgb 8.5 L D (13.0-17.5) gm/dL Hct 26.7 L (39.0-53.0) % RDW 17.9 H (11.5-15.5) % Plt Count 83 L (150-450) k/uL Neutrophils # 10.6 H (1.3-7.7) k/uL ABG pCO2 (35-45) mmHg ABG O2 Saturation (94-97) % Hemoglobin (13.0-17.5) gm/dL Chloride (98-107) mmol/L Carbon Dioxide (22-30) mmol/L BUN (9-20) mg/dL Creatinine (0.66-1.25) mg/dL Glucose (74-99) mg/dL POC Glucose (mg/dL) (70-110) mg/dL Calcium (8.4-10.2) mg/dL Total Protein (6.3-8.2) g/dL Albumin (3.5-5.0) g/dL Triglycerides 240.00 H (0.00-149.00) mg/dL Crossmatch See Detail 12/26/23 12/26/23 12/27/23 Range/Units 17:47 23:05 03:30 WBC (3.8-10.6) k/uL RBC (4.30-5.90) m/uL Hgb (13.0-17.5) gm/dL Hct (39.0-53.0) % RDW (11.5-15.5) % Plt Count (150-450) k/uL Neutrophils # (1.3-7.7) k/uL ABG pCO2 (35-45) mmHg ABG O2 Saturation (94-97) % Hemoglobin (13.0-17.5) gm/dL Chloride 121 H (98-107) mmol/L Carbon Dioxide 19 L (22-30) mmol/L BUN 46 H (9-20) mg/dL Creatinine 1.90 H (0.66-1.25) mg/dL Glucose 163 H (74-99) mg/dL POC Glucose (mg/dL) 141 H 190 H (70-110) mg/dL Calcium 6.9 L (8.4-10.2) mg/dL Total Protein 5.1 L (6.3-8.2) g/dL Albumin 1.8 L (3.5-5.0) g/dL Triglycerides (0.00-149.00) mg/dL Crossmatch 12/27/23 12/27/23 12/27/23 Range/Units 03:30 05:07 05:35 WBC 10.9 H (3.8-10.6) k/uL RBC 2.82 L (4.30-5.90) m/uL Hgb 8.1 L (13.0-17.5) gm/dL Hct 26.2 L (39.0-53.0) % RDW 18.0 H (11.5-15.5) % Plt Count 100 L (150-450) k/uL Neutrophils # (1.3-7.7) k/uL ABG pCO2 31 L (35-45) mmHg ABG O2 Saturation 98.4 H (94-97) % Hemoglobin 8.0 L (13.0-17.5) gm/dL Chloride (98-107) mmol/L Carbon Dioxide (22-30) mmol/L BUN (9-20) mg/dL Creatinine (0.66-1.25) mg/dL Glucose (74-99) mg/dL POC Glucose (mg/dL) 210 H (70-110) mg/dL Calcium (8.4-10.2) mg/dL Total Protein (6.3-8.2) g/dL Albumin (3.5-5.0) g/dL Triglycerides (0.00-149.00) mg/dL Crossmatch Microbiology - Last 24 Hours (Table) 12/25/23 12:52 Blood Culture - Preliminary Blood Assessment and Plan Plan: Assessment: 1. Acute kidney injury secondary to ATN secondary to septic shock. Creatinine 0.86 on admission and up to 5.38 dated November 29, 2023. Urine output improved, now nonoliguric. UA fairly benign. No hydronephrosis noted on imaging. Started on hemodialysis November 29, 2023 due to volume overload. Patient initially had a right femoral catheter placed which subsequently became occluded and a left tunneled femoral catheter was placed December 06, 2023. Renal function improving with creatinine stable at 1.9. 2. Perforated small bowel status post exploratory laparotomy with abdominal washout, small bowel resection and J-tube replacement November 25, 2023. 3. A-fib with RVR. s/p amiodarone drip. Also received digoxin this admission. 4. Recently diagnosed gastric B-cell lymphoma. 5. Septic shock. Likely abdominal source. On IV antibiotics. 6. Hypocalcemia secondary to acute kidney injury. Replaced. Improved. 7. Metabolic acidosis secondary to acute kidney injury and partially from compensation for underlying respiratory alkalosis. Improved. 8. Volume overload. Improved with diuresis and ultrafiltration. 9. Status post tracheostomy December 10, 2023. 10. Anemia. Component of chronic illness and acute blood loss. Received blood transfusions and DDAVP this admission. On Aranesp. 11. Respiratory alkalosis. 12. Hypernatremia from lack of oral water intake. Status post D5W. Improved. Plan: Continue to hold hemodialysis. Last dialysis December 18, 2023. Receiving TPN. Avoid nephrotoxins. Preserved EF noted on echocardiogram. Case discussed with present at bedside. DC dialysis catheter prior to discharge if renal function remains stable. Maintain midodrine.
--- NOTE | 2023-12-27 11:27 | P.PN ---
Subjective Progress Note Date: 12/27/23 CHIEF COMPLAINT: Abdominal pain HISTORY OF PRESENT ILLNESS: Patient remains in the ICU on mechanical vent ilation. Has tracheostomy. Patient continues to have leaking from the J-tube. J-tube is currently to drainage and has bilious output. Tube feeds are on hold. He has TPN for nutrition support. Afebrile. WBC is down from 13.2-10.9 hemoglobin stable at 8.1 PHYSICAL EXAM: VITAL SIGNS: Reviewed. GENERAL: no acute distress. HEENT: Tracheostomy site clean dry and intact ABDOMEN: Soft. Nondistended. Midline incision with wound VAC in place and intact. J-tube with bilious drainage noted. Skin is irritated and erythematous from drainage. Sutures are intact. ASSESSMENT: 1. 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 Status post J-tube placement and revision for small bowel obstruction 2. Abdominal wound dehiscence status post wound VAC placement 3. Status post tracheostomy PLAN: -At this time no plan to exchange J-tube -Keep J-tube to drainage -Continue to hold tube feeds -Wound VAC scheduled to be changed today -Continue TPN for nutrition support -Continue zinc barrier cream around J-tube Physician Telephone Mechanic note has been reviewed by physician. Signing provider agrees with the documented findings, assessment, and plan of care. Attestation Patient seen and examined at bedside with family. J-tube to drainage with continued leak around J-tube site. Continue zinc on skin to avoid significant injury. Wound VAC to be changed today. Consideration was made to upsize J- tube, however patient is having significant wound healing issues. Midline wound has required wound VAC secondary to skin dehiscence. Patient also had sutures removed from Mediport site on the right chest. The sutures were in for approximately 1 month, however wound edges appeared to have some mild dehiscence. By upsizing the J-tube, there is concerned that this will increase the fistula size and create significant increase in leakage requiring further surgical intervention that the family does not want. Recommend continuing current management. I also did discuss the importance of serious goals of care discussion with the family. Zachary Ruiz, Objective - Vital Signs Vital signs: Vital Signs Temp 97.9 F 12/27/23 04:00 Pulse 71 12/27/23 08:18 Resp 26 H 12/27/23 07:00 BP 127/88 12/27/23 07:00 Pulse Ox 97 12/27/23 07:00 FiO2 30 12/27/23 08:08 Intake & Output 12/26/23 12/27/23 12/27/23 18:59 06:59 18:59 Intake Total 750.462 7820.693 71.465 Output Total 605 635 Balance -0.252 1132.693 71.465 Weight 100.6 kg Intake: IV 110 1660 0.9 KVO 110 560 Piperacillin-Tazobactam 3 1100 .375 gm In Sodium Chloride 0.9% 100 ml @ 25 mls/hr IVPB Q12HR [facility] Rx #:[id number] Intake, IV Titration 184.748 107.693 71.465 Amount Dexmedetomidine/0.9% NaCl 32.686 107.693 71.465 (Pmx) 400 mcg In Empty Bag 1 bag @ 0.2 MCG/KG/HR 4.94 mls/hr IV .[id number] [facility] Rx#:[id number] Norepinephrine 4 mg In 22.062 Sodium Chloride 0.9% 250 ml @ 0.03 MCG/KG/MIN 11. 03 mls/hr IV .Q23H2M [facility] Rx#:[id number] Sodium Acetate 30 meq 30 Potassium Acetate 30 meq Magnesium Sulfate gm 1 gm Calcium Gluconate 1 gm In Amino Acids 5 %/ Dextrose 20 % 1,000 ml @ 65 mls/hr IV .BY DURATION [facility] Rx#:[id number] propofoL 1,000 mg In 100.000 Empty Bag 1 bag @ 15 MCG/ KG/MIN 8.685 mls/hr IV . [id number] [facility] Rx#:[id number] Blood Product 310 Rc As-1 Unit 0 [id number] Output: Drainage 190 Right Abdomen 190 Urine 415 635 Other: Voiding Method Indwelling Catheter Indwelling Catheter ABP, PAP, CO, CI - Last Documented Arterial Blood Pressure 153/65 - Labs CBC & Chem 7: 12/27/23 03:30 12/27/23 03:30 Labs: Abnormal Lab Results - Last 24 Hours (Table) 12/23/23 12/26/23 12/26/23 Range/Units 17:15 16:30 17:47 WBC 13.2 H (3.8-10.6) k/uL RBC 2.91 L (4.30-5.90) m/uL Hgb 8.5 L D (13.0-17.5) gm/dL Hct 26.7 L (39.0-53.0) % RDW 17.9 H (11.5-15.5) % Plt Count 83 L (150-450) k/uL Neutrophils # 10.6 H (1.3-7.7) k/uL ABG pCO2 (35-45) mmHg ABG O2 Saturation (94-97) % Hemoglobin (13.0-17.5) gm/dL Chloride (98-107) mmol/L Carbon Dioxide (22-30) mmol/L BUN (9-20) mg/dL Creatinine (0.66-1.25) mg/dL Glucose (74-99) mg/dL POC Glucose (mg/dL) 141 H (70-110) mg/dL Calcium (8.4-10.2) mg/dL Total Protein (6.3-8.2) g/dL Albumin (3.5-5.0) g/dL Crossmatch See Detail 12/26/23 12/27/23 12/27/23 Range/Units 23:05 03:30 03:30 WBC 10.9 H (3.8-10.6) k/uL RBC 2.82 L (4.30-5.90) m/uL Hgb 8.1 L (13.0-17.5) gm/dL Hct 26.2 L (39.0-53.0) % RDW 18.0 H (11.5-15.5) % Plt Count 100 L (150-450) k/uL Neutrophils # (1.3-7.7) k/uL ABG pCO2 (35-45) mmHg ABG O2 Saturation (94-97) % Hemoglobin (13.0-17.5) gm/dL Chloride 121 H (98-107) mmol/L Carbon Dioxide 19 L (22-30) mmol/L BUN 46 H (9-20) mg/dL Creatinine 1.90 H (0.66-1.25) mg/dL Glucose 163 H (74-99) mg/dL POC Glucose (mg/dL) 190 H (70-110) mg/dL Calcium 6.9 L (8.4-10.2) mg/dL Total Protein 5.1 L (6.3-8.2) g/dL Albumin 1.8 L (3.5-5.0) g/dL Crossmatch 12/27/23 12/27/23 Range/Units 05:07 05:35 WBC (3.8-10.6) k/uL RBC (4.30-5.90) m/uL Hgb (13.0-17.5) gm/dL Hct (39.0-53.0) % RDW (11.5-15.5) % Plt Count (150-450) k/uL Neutrophils # (1.3-7.7) k/uL ABG pCO2 31 L (35-45) mmHg ABG O2 Saturation 98.4 H (94-97) % Hemoglobin 8.0 L (13.0-17.5) gm/dL Chloride (98-107) mmol/L Carbon Dioxide (22-30) mmol/L BUN (9-20) mg/dL Creatinine (0.66-1.25) mg/dL Glucose (74-99) mg/dL POC Glucose (mg/dL) 210 H (70-110) mg/dL Calcium (8.4-10.2) mg/dL Total Protein (6.3-8.2) g/dL Albumin (3.5-5.0) g/dL Crossmatch Microbiology - Last 24 Hours (Table) 12/25/23 12:52 Blood Culture - Preliminary Blood
--- NOTE | 2023-12-27 12:10 | P.PN ---
Subjective Progress Note Date: 12/27/23 Principal diagnosis: Acute hypoxic respiratory failure requiring intubation mechanical ventilation secondary to aspiration. This is a 73-year-old white male with history of chronic abdominal pain for the last 8 months has been treated with Protonix 40 mg daily for the last 3 months with no improvement. Patient had a 22 pound weight loss in the last [address] of the abdomen and pelvis 3 weeks ago showed thickening of the antral wall with pathological adenopathy posterior to the stomach suspicious of neoplasm. Today the patient underwent elective upper endoscopy to evaluate further, patient received IV sedation by anesthesia endoscope was inserted into the mouth, esop hagus was intubated without any difficulty there was evidence of large amount of liquid and solid food noted in the stomach suggestive of gastric outlet obstruction. Scope could not be advanced through the pylorus, however in the prepyloric area there was a large superficial ulceration identified with multiple biopsies were done from this area. The body cardia and fundus could not adequately visualize because of large amount of retained food in the stomach. Scope was withdrawn back to the stomach and upon careful examination the mucosa of the antrum body and cardia as well as the fundus appeared normal. Procedure was being performed and biopsies were done patient threw up and subsequently became hypoxic there was clearly evidence of witnessed aspiration anesthesia intubated the patient, procedure was terminated, and the patient was transferred to the ICU, this consult was initiated. Patient is now on assist- control rate of 20 tidal volume 500 FiO2 70% PEEP of 10 ABG is pending, earlier ABG showed profound hypoxia patient is on propofol at 50 mcg/kg/min, next ABG is pending. Chest x-ray showed chronic changes without evidence of acute pulmonary disease. 12/20/2023, the patient is being seen for a follow-up. More alert and awake compared to yesterday. He is able to move his fingers and toes on today's evaluation. Following commands. Nevertheless, his J tube has been clogged and was unable to utilize the tube that has been some leaks around the tube. No abdominal distention. No nausea or emesis. Hemodynamically stable. Will undergo hemodialysis today. He remains on pressure control mode of mechanical ventilation at rate of 16, pressure of 10, +5 PEEP with an FiO2 of 30%. Chest x-ray from today is essentially unchanged with a stable cavity in his right uppe r lobe. White cell count of 15.7, hemoglobin 7.2, platelet count is 203, blood gas showed a pH of 7.49 with a pCO2 of 33 and pO2 of 73. BUN is 88 with a creatinine 1.89 and sodium is at 141 with a potassium level of 4.1. He is producing adequate amount of urine output. Fluid balance has been -900 cc over the past 24 hours. Normotensive. Remains on a combination of Zosyn and daptomycin. Remains on Levemir insulin 24 units daily. This is currently on hold as the patient has not been able to obtain enteral feeding. Wound VAC still in place. 12/21/2023, the patient remains on the mechanical ventilator. Overnight, the patient experienced discomfort in his abdomen and he was restless. Based on that, the patient was placed on a higher dose of Precedex which is currently running at 0.6 mcg/kg/h. The patient was also asynchronous with the mechanical ventilator and based on that, the patient was switched to an AC mode and currently is at a rate of 16, tidal volume of 400, FiO2 of 30% with a PEEP of 5. The patient is adequately sedated for now. Chest x-ray remains unchanged. Tra cheostomy tube in place and the patient is having increased amount of respiratory secretions. J tube needs to be replaced today and this will be done by his general surgery as the tube remains clogged. Urine output is low order of 30 cc an hour. Afebrile. Remains on Zosyn and daptomycin. White cell count is 16.9, hemoglobin 7.4 and a platelet count of 280. Blood gas from today showed a pH of 7.46 with a pCO2 of 36 and pO2 of 82. Sodium levels of 144, BUN is 19 with a creatinine of 2.2 and a serum bicarb is at 23. The abdominal wound remains unchanged. RAYA drain is serosanguineous. 12/22/2023, patient remains on Precedex at 0.4 mcg/kg/min. Arousable. Communicates. Profoundly weak. Remains on the mechanical ventilator with a right lung abscess. SIMV mode mode rate of 16, tidal volume of 400, FiO2 30% with a PEEP of 5, with a pressure support of 8. Blood gas showed a pH of 7.46 with a pCO2 of 32 and a pO2 of 82. Chest x-ray remains unchanged with a right upper lobe cavitating lesion/opacity and a suspected lung abscess. This is rated Pseudomonas and the patient remains on IV Zosyn. He remains on daptomycin. Urine output is in order of 50 cc an hour.. The J-tube was unplugged yesterday. Nevertheless, the tube itself is malfunctioning and there is drainage around the tube requiring dressing changes the dressings being soakedConstantly. The patient's white cell count is 12.3 with a hemoglobin 7.7. Sodium is at 149, BUN 91 with a creatinine of 2.3. Bicarb is at 20. Undergoing hemodialysis periodically. Last hemodialysis was on 12/21/2023. Currently NPO. Abdominal wound is clean and the patient has a wound VAC in place. RAYA drain output is serosanguineous. Patient was seen today on 12/23/2023, remains in the ICU, intubated and mechanically ventilated. Patient is on IMV with pressure support/IMV 16, pressure support of 8, tidal volume 400, PEEP of 5. Patient seems to be doing well with that kind of mode of mechanical ventilation, ABG showed a pO2 of 76 pCO2 28 pH of 7.50. I changed his rate from 16-8 kept him otherwise on the same ventilator settings. Plan to gradually go down on the IMV rate until we can get him on pressure support of 8 and CPAP. Patient is requiring Precedex at 0.4 mcg/kg/h, he is on D5W at 50 cc/h. Remains on antibiotics in the form of daptomycin and Zosyn, chest x-ray continues to show bilateral airspace disease and right upper lobe lung abscess. Continues to have a bit of a leak from his J-tube being addressed by surgery has a wound VAC, and he had a RAYA drain. Mentation arce the patient is a bit more appropriate, opens his eyes, follows very simple instructions, seems to comprehend. Patient has a left brachial PICC line, he also has a left groin hemodialysis catheter. WBC count is 10.1 hemoglobin is 7 sodium is 149 potassium 4 chloride is 121 BUN is 86 creatinine 2.31. Blood sugar is 173. Remains on enteral feeding via J-tube, a bit of a leak is noted, and surgery is to address this. Sputum cultures have grown Klebsiella and Pseudomonas and remains on proper antibiotics Patient was seen and examined today on 12/24/2023, patient remains in the ICU, and mechanically ventilated. On IMV mode of 8 pressure support of 8 tidal volume 400 FiO2 30% and PEEP of 5 ABG showed a pO2 of 81 pCO2 32 pH of 7.45. Patient remains on daptomycin and Zosyn, remains on Precedex at 0.4 mcg/kg/h intermittently receiving Dilaudid for pain. Feeding arce is presently on hold, patient had a leak around the jejunostomy tube, surgery is recommending a trickle feed or TPN if could not use the J-tube. Patient is arousable follows simple instructions, and today I had a chance to get rid of the IMV mode, and I am recommending a pressure support of 8 and CPAP. For the last few hours the patient has been tolerating this mode of mechanical ventilation, however he is not quite ready to go to [facility] at this point. Chest x-ray continues to show significant opacity in the right upper lobe and airspace disease in the right lower lobe. Previously patient had a CT of the chest showing right upper lobe abscess. Again he remains on Zosyn and daptomycin.Labs today showed WBC count of 10.6 hemoglobin 7.8 sodium is 147, patient is now on D5W at 100 cc an hour his bicarb is 19 BUN 74 creatinine 2.08, gradually improving, his last hemodialysis was on the , nephrology is considering removing his dialysis catheter in the left groin and I believe that is appropriate patient was seen and examined today on 12/25/2023, remains in the ICU, intubated and mechanically ventilated. Patient had to be placed back on assist-control mode of mechanical ventilation yesterday, mostly because he developed s ignificant agitation and restlessness, and ongoing persistent cough with some air leak from the cough of that tracheostomy. Patient had to be sedated and he was placed on propofol and he remains on propofol at 50 mcg/kg/min. Maximal dose of Precedex yesterday could not calm him down, hence we had to transition him from pressure support/CPAP mode of mechanical ventilation to assist-control mode of mechanical ventilation and fully sedated him with propofol replacing Precedex. Today the patient is sedated, he is on assist-control rate of 16 tidal volume 400 FiO2 30% PEEP of 5 ABG showed a pO2 of 98 pCO2 30 pH of 7.45 chest x-ray is basically the same showing significant airspace disease in the right upper lobe and right lower lobe. Remains on daptomycin and Zosyn. His IV fluid was transitioned to D5 4 5 from D5W sodium today is 141. His urine output is about 40 to 50 cc/h, renal profile is improving with steady trending of creatinine down. Patient continues to have leakage around the jejunostomy tube. Patient is being followed by surgery no specific recommendation made except to continue the same and except the leak as it isLabs today showed WBC count of 11.5 hemoglobin 8.2 basic metabolic profile is normal BUN is 60 creatinine down to 1.81 Patient seen today on 12/26/2023, remains in the ICU intubated mechanically ventilated sedated patient is on assist-control rate of 16 tidal volume 400 FiO2 30% PEEP of 5 ABG showed a pO2 of 82 pCO2 34 pH of 7.43. Patient is now on TPN at 30 cc/h propofol at 50 mcg/kg/min hemoglobin is down to 6.8 today and he is receiving a unit of packed RBCs. His IV fluids at 50 cc/h in the form of 0.9 normal saline. He was last night on a small dose of norepinephrine at 0.01 mcg/kg/min and is presently on hold. Antibiotics arce patient is on Zosyn daptomycin and Eraxis. Chest x-ray continues to show significant airspace disease involving the right upper lobe and right lower lobe not much of a change noted on the chest x-ray. Clinically the patient is about the same, today I plan to discontinue propofol, arrange for the patient to go on Precedex, and assess mental status off sedation. If tolerated, may transition the patient a gain to pressure support and CPAP type of mechanical ventilation, but he is not ready to go to that transition yet. WBC count is 11.6 hemoglobin 6.8. ABG today showed a pO2 of 82 pCO2 34 pH of 7.43 potassium is 3.3 being addressed accordingly BUN is 53 creatinine 1.84 Patient was evaluated today on 12/27/2023, remains in the ICU intubated and mechanically ventilated. Patient is presently on IMV mode of mechanical ventilation with pressure support rate of 16 pressure support 14 tidal volume 400 FiO2 30% and PEEP of 5 ABG showed a pO2 of 99 pCO2 31 pH of 7.44. Intermittently the patient has been experiencing episodes of extreme agitation and restlessness he is on Precedex at 0.5 mcg/kg/h. Patient is on IV fluid 0.9 normal saline at 50 cc/h and is also receiving TPN. Remains on Eraxis daptomycin and Zosyn patient is intermittently requiring Dilaudid, Ativan does not seem to help his agitation and restlessness. But Dilaudid does hence I would recommend 0.5 mg every 2-3 hours as needed for agitation. Patient has good urine output roughly about 100 cc/h. Continues to have leakage around the jejunostomy tube, and patient is undergoing the J-tube exchange today. Family is at bedside, seems to be quite anxious about his overall condition, and I explained to the that we are doing the best we can considering his critical illness situation and critical illness polyneuropathy. Patient is profoundly weak, and weaning the patient from mechanical ventilation is almost impossible. At least not at this point yet WBC count is 10.9 hemoglobin is 8.1 basic metabolic profile is normal BUN is 46 creatinine 1.90 patient has been off hemodialysis since the . Chest x-ray continues to show stable findings with right upper lobe opacity and right lower lobe opacity and possibly a small right-sided pleural effusion Objective - Vital Signs Vital signs: Vital Signs Temp 98.7 F 12/27/23 08:00 Pulse 71 12/27/23 11:48 Resp 27 H 12/27/23 11:00 BP 127/88 12/27/23 07:00 Pulse Ox 94 L 12/27/23 11:00 FiO2 30 12/27/23 11:49 Intake & Output 12/26/23 12/27/23 12/27/23 18:59 06:59 18:59 Intake Total 883.077 7212.693 321.465 Output Total 605 635 400 Balance -0.252 1132.693 -78.535 Weight 100.6 kg Intake: IV 110 1660 250 0.9 KVO 110 560 250 Piperacillin-Tazobactam 3 1100 .375 gm In Sodium Chloride 0.9% 100 ml @ 25 mls/hr IVPB Q12HR [facility] Rx #:[id number] Intake, IV Titration 184.748 107.693 71.465 Amount Dexmedetomidine/0.9% NaCl 32.686 107.693 71.465 (Pmx) 400 mcg In Empty Bag 1 bag @ 0.2 MCG/KG/HR 4.94 mls/hr IV .[id number] [facility] Rx#:[id number] Norepinephrine 4 mg In 22.062 Sodium Chloride 0.9% 250 ml @ 0.03 MCG/KG/MIN 11. 03 mls/hr IV .[id number] [facility] Rx#:[id number] Sodium Acetate 30 meq 30 Potassium Acetate 30 meq Magnesium Sulfate gm 1 gm Calcium Gluconate 1 gm In Amino Acids 5 %/ Dextrose 20 % 1,000 ml @ 65 mls/hr IV .BY DURATION [facility] Rx#:[id number] propofoL 1,000 mg In 100.000 Empty Bag 1 bag @ 15 MCG/ KG/MIN 8.685 mls/hr IV . [id number] [facility] Rx#:[id number] Blood Product 310 Rc As-1 Unit 0 [id number] Output: Drainage 190 50 Right Abdomen 190 50 Urine 415 635 350 Other: Voiding Method Indwelling Catheter Indwelling Catheter ABP, PAP, CO, CI - Last Documented Arterial Blood Pressure 120/52 - Exam General: Revealed 73-year-old white male on mechanical ventilation with IMV mode and pressure support as noted earlier. On Precedex. Skin: Skin is warm and dry and no rashes or lesions are noted. Eye: Pupils are equal, round and reactive to light, extra-ocular movements are intact; there is normal conjunctiva bilaterally. Ears, nose, mouth and throat: There are moist mucous membranes and no oral lesions. Neck: The neck is supple, there is no tenderness or JVD. Tracheostomy is intact. No air leak noted today Cardiovascular: There is a regular rate and rhythm. No murmur, rub or gallop is appreciated. Respiratory: Crackles at the bases, no rhonchi no wheezes Gastrointestinal: no rebound, no guarding, no bowel sounds, positive leak noted around the jejunostomy tube, being addressed by surgery on the case, considering changing J-tube today Musculoskeletal: No deformities and no limitation range of motion other the patient seems to be generally weak. 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 Neurological: Patient is arousable but not appropriate, gets extremely agitated Extremities: 1+ bipedal edema - Labs CBC & Chem 7: 12/27/23 03:30 12/27/23 03:30 Labs: Abnormal Lab Results - Last 24 Hours (Table) 12/23/23 12/26/23 12/26/23 Range/Units 17:15 16:30 17:47 WBC 13.2 H (3.8-10.6) k/uL RBC 2.91 L (4.30-5.90) m/uL Hgb 8.5 L D (13.0-17.5) gm/dL Hct 26.7 L (39.0-53.0) % RDW 17.9 H (11.5-15.5) % Plt Count 83 L (150-450) k/uL Neutrophils # 10.6 H (1.3-7.7) k/uL ABG pCO2 (35-45) mmHg ABG O2 Saturation (94-97) % Hemoglobin (13.0-17.5) gm/dL Chloride (98-107) mmol/L Carbon Dioxide (22-30) mmol/L BUN (9-20) mg/dL Creatinine (0.66-1.25) mg/dL Glucose (74-99) mg/dL POC Glucose (mg/dL) 141 H (70-110) mg/dL Calcium (8.4-10.2) mg/dL Total Protein (6.3-8.2) g/dL Albumin (3.5-5.0) g/dL Crossmatch See Detail 12/26/23 12/27/23 12/27/23 Range/Units 23:05 03:30 03:30 WBC 10.9 H (3.8-10.6) k/uL RBC 2.82 L (4.30-5.90) m/uL Hgb 8.1 L (13.0-17.5) gm/dL Hct 26.2 L (39.0-53.0) % RDW 18.0 H (11.5-15.5) % Plt Count 100 L (150-450) k/uL Neutrophils # (1.3-7.7) k/uL ABG pCO2 (35-45) mmHg ABG O2 Saturation (94-97) % Hemoglobin (13.0-17.5) gm/dL Chloride 121 H (98-107) mmol/L Carbon Dioxide 19 L (22-30) mmol/L BUN 46 H (9-20) mg/dL Creatinine 1.90 H (0.66-1.25) mg/dL Glucose 163 H (74-99) mg/dL POC Glucose (mg/dL) 190 H (70-110) mg/dL Calcium 6.9 L (8.4-10.2) mg/dL Total Protein 5.1 L (6.3-8.2) g/dL Albumin 1.8 L (3.5-5.0) g/dL Crossmatch 12/27/23 12/27/23 Range/Units 05:07 05:35 WBC (3.8-10.6) k/uL RBC (4.30-5.90) m/uL Hgb (13.0-17.5) gm/dL Hct (39.0-53.0) % RDW (11.5-15.5) % Plt Count (150-450) k/uL Neutrophils # (1.3-7.7) k/uL ABG pCO2 31 L (35-45) mmHg ABG O2 Saturation 98.4 H (94-97) % Hemoglobin 8.0 L (13.0-17.5) gm/dL Chloride (98-107) mmol/L Carbon Dioxide (22-30) mmol/L BUN (9-20) mg/dL Creatinine (0.66-1.25) mg/dL Glucose (74-99) mg/dL POC Glucose (mg/dL) 210 H (70-110) mg/dL Calcium (8.4-10.2) mg/dL Total Protein (6.3-8.2) g/dL Albumin (3.5-5.0) g/dL Crossmatch Microbiology - Last 24 Hours (Table) 12/25/23 12:52 Blood Culture Gram Stain - Preliminary Blood Blood Culture - Preliminary Assessment and Plan Assessment: Impression: Acute hypoxic respiratory failure requiring intubation mechanical ventilation secondary to aspiration. Status post tracheostomy on 12/10/2023 patient continues to have a cavitary lesion/lung abscess involving the right upper lobe. Status post J-tube placement 11/16/2023, multiple complications since then related to the J-tube placement requiring multiple surgeries. Ongoing leak a round the J-tube, surgery is addressing not planning any surgical intervention at this point, and for feeding recommending either trickle feeds or TPN both. Acute peritonitis secondary to above, secondary to small bowel perforation with abdominal contamination Septic shock secondary to above Paroxysmal atrial fibrillation Acute kidney injury requiring hemodialysis secondary to sepsis and septic shock, last hemodialysis was on the , apparently patient is not requiring hemodialysis since then and nephrology planning to discontinue his dialysis catheter from the left groin Weight loss secondary to non-Hodgkin's lymphoma Acute aspiration pneumonia/right upper lobe lung abscess Acute aspiration during upper endoscopy most likely secondary to gastric outlet obstruction secondary to non-Hodgkin's lymphoma based on the pathology from stomach biopsies 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 Today the patient will go on pressure support of 8 and CPAP not quite ready to be extubated. Critical illness polyneuropathy Metabolic encephalopathy Malfunctioning of the J-tube Recommendation: Continue ventilatory support, now on IMV mode rate of 16 with pressure support of 14 Continue Precedex and use Dilaudid 0.5 mg every 2-3 hours as needed. Nutritional support patient is now on TPN, hoping to be able to use his J-tube if fixed by general surgery on the case. Possible J-tube changed today for J-tube malfunction Continue antibiotics including daptomycin and Zosyn, Eraxis was added by infectious disease Close monitoring of daily labs Continue GI and DVT prophylaxis Family updated again on his condition Remains critically ill Prognosis is extremely poor and guarded Care time is over 30 minutes Will continue to follow Time with Patient: Greater than 30
[2023-12-27] MEDS: HYDROmorphone 0.5 MG/0.5 ML SYRINGE IVP PRN (12:43)
[2023-12-27 12:51] LABS: Glucose,Whole Blood 287 mg/dL (70-110)
--- NOTE | 2023-12-27 15:19 | P.PN ---
Subjective Progress Note Date: 12/26/23 Principal diagnosis: Reason for follow-up is pneumonia and bacteremia Patient is 73-year-old with male initial presentation to the hospital on 11/11/2021 for after the patient did have aspiration while undergoing elective endoscopy, diagnosed with a non-Hodgkin of, subsequently did have explained laparotomy for perforated small bowel abdominal washout and feeding jejunostomy tube patient did require dialysis catheter placement for dialysis during this hospital stay and tracheostomy for respiratory failure, infectious was consulted for fever. On today's evaluation that is 12/26/2023,the patient continues to be afebrile the patient remains to be debated on the vent through the trach FiO2 is currently stable at 30% no significant purulent secretion through the ET still having issues with the G-tube leakage no diarrhea has been reported Patient white count is down to 13.2, creatinine is 1.84 Objective - Vital Signs Vital signs: Vital Signs Temp 98.1 F 12/26/23 06:42 Pulse 84 12/26/23 08:32 Resp 36 H 12/26/23 06:45 BP 127/55 12/26/23 06:42 Pulse Ox 97 12/26/23 06:45 FiO2 30 12/26/23 08:27 Intake & Output 12/25/23 12/26/23 12/26/23 18:59 06:59 18:59 Intake Total 1218.963 551.439 Output Total 380 855 Balance 838.963 -303.561 Weight 94.3 kg 98.8 kg Intake: IV 695 110 0.9 KVO 95 110 Anidulafungin 200 mg In 200 Sodium Chloride 0.9% 200 ml @ 84 mls/hr IVPB ONCE ONE Rx#:[id number] DAPTOmycin 600 mg In 50 Sodium Chloride 0.9% 50 ml @ 100 mls/hr IVPB Q48H [facility] Rx#:[id number] Dextrose 5% in Water 1, 250 000 ml @ 125 mls/hr IV . Q8H [facility] Rx#:[id number] Piperacillin-Tazobactam 3 100 .375 gm In Sodium Chloride 0.9% 100 ml @ 25 mls/hr IVPB Q12HR [facility] Rx #:[id number] Intake, IV Titration 523.963 441.439 Amount Norepinephrine 4 mg In 254 54.106 Sodium Chloride 0.9% 250 ml @ 0.03 MCG/KG/MIN 11. 03 mls/hr IV .Q23H2M [facility] Rx#:[id number] propofoL 1,000 mg In 269.963 387.333 Empty Bag 1 bag @ 15 MCG/ KG/MIN 8.685 mls/hr IV . [id number] [facility] Rx#:[id number] Blood Product 0 Unit 0 Output: Drainage 140 50 Right Abdomen 140 50 Urine 240 805 Other: Voiding Method Indwelling Catheter Indwelling Catheter ABP, PAP, CO, CI - Last Documented Arterial Blood Pressure 127/54 - Exam GENERAL DESCRIPTION: An elderly male lying in bed in no distress RESPIRATORY SYSTEM: Unlabored breathing , decreased breath sounds at bases HEART: S1 S2 regular rate and rhythm , ABDOMEN: Soft , no tenderness EXTREMITIES: No edema feet - Labs CBC & Chem 7: 12/27/23 03:30 12/27/23 03:30 Labs: Abnormal Lab Results - Last 24 Hours (Table) 12/23/23 12/25/23 12/25/23 Range/Units 17:15 12:52 12:52 WBC (3.8-10.6) k/uL RBC (4.30-5.90) m/uL Hgb (13.0-17.5) gm/dL Hct (39.0-53.0) % RDW (11.5-15.5) % Plt Count (150-450) k/uL Neutrophils # (1.3-7.7) k/uL ABG pCO2 (35-45) mmHg ABG pO2 (83-108) mmHg Hemoglobin (13.0-17.5) gm/dL Potassium (3.5-5.1) mmol/L Chloride (98-107) mmol/L Carbon Dioxide (22-30) mmol/L BUN (9-20) mg/dL Creatinine (0.66-1.25) mg/dL POC Glucose (mg/dL) (70-110) mg/dL Calcium (8.4-10.2) mg/dL Ionized Calcium Krystal (4.5-5.3) mg/dL Albumin 1.9 L (3.5-5.0) g/dL Procalcitonin 0.55 H (0.02-0.50) ng/mL Urine Protein (Negative) Urine Blood (Negative) Ur Leukocyte Esterase (Negative) Urine RBC (0-5) /hpf Urine Bacteria (None) /hpf Urine Yeast (Budding) (None) /hpf Crossmatch See Detail 12/25/23 12/25/23 12/25/23 Range/Units 16:30 17:47 17:57 WBC (3.8-10.6) k/uL RBC (4.30-5.90) m/uL Hgb (13.0-17.5) gm/dL Hct (39.0-53.0) % RDW (11.5-15.5) % Plt Count (150-450) k/uL Neutrophils # (1.3-7.7) k/uL ABG pCO2 (35-45) mmHg ABG pO2 (83-108) mmHg Hemoglobin (13.0-17.5) gm/dL Potassium (3.5-5.1) mmol/L Chloride (98-107) mmol/L Carbon Dioxide (22-30) mmol/L BUN (9-20) mg/dL Creatinine (0.66-1.25) mg/dL POC Glucose (mg/dL) 36 L* 36 L* (70-110) mg/dL Calcium (8.4-10.2) mg/dL Ionized Calcium Krystal (4.5-5.3) mg/dL Albumin (3.5-5.0) g/dL Procalcitonin (0.02-0.50) ng/mL Urine Protein Trace H (Negative) Urine Blood Moderate H (Negative) Ur Leukocyte Esterase Small H (Negative) Urine RBC 15 H (0-5) /hpf Urine Bacteria Occasional H (None) /hpf Urine Yeast (Budding) Many H (None) /hpf Crossmatch 12/25/23 12/26/23 12/26/23 Range/Units 18:14 04:10 04:10 WBC 11.6 H (3.8-10.6) k/uL RBC 2.36 L (4.30-5.90) m/uL Hgb 6.8 L* (13.0-17.5) gm/dL Hct 21.1 L (39.0-53.0) % RDW 18.6 H (11.5-15.5) % Plt Count 86 L (150-450) k/uL Neutrophils # 9.1 H (1.3-7.7) k/uL ABG pCO2 (35-45) mmHg ABG pO2 (83-108) mmHg Hemoglobin (13.0-17.5) gm/dL Potassium 3.3 L (3.5-5.1) mmol/L Chloride 115 H (98-107) mmol/L Carbon Dioxide 21 L (22-30) mmol/L BUN 53 H (9-20) mg/dL Creatinine 1.84 H (0.66-1.25) mg/dL POC Glucose (mg/dL) 129 H (70-110) mg/dL Calcium 6.6 L (8.4-10.2) mg/dL Ionized Calcium Krystal 4.3 L (4.5-5.3) mg/dL Albumin (3.5-5.0) g/dL Procalcitonin (0.02-0.50) ng/mL Urine Protein (Negative) Urine Blood (Negative) Ur Leukocyte Esterase (Negative) Urine RBC (0-5) /hpf Urine Bacteria (None) /hpf Urine Yeast (Budding) (None) /hpf Crossmatch 12/26/23 12/26/23 Range/Units 04:10 04:58 WBC (3.8-10.6) k/uL RBC (4.30-5.90) m/uL Hgb (13.0-17.5) gm/dL Hct (39.0-53.0) % RDW (11.5-15.5) % Plt Count (150-450) k/uL Neutrophils # (1.3-7.7) k/uL ABG pCO2 34 L (35-45) mmHg ABG pO2 82 L (83-108) mmHg Hemoglobin 6.7 L* (13.0-17.5) gm/dL Potassium (3.5-5.1) mmol/L Chloride (98-107) mmol/L Carbon Dioxide (22-30) mmol/L BUN (9-20) mg/dL Creatinine (0.66-1.25) mg/dL POC Glucose (mg/dL) (70-110) mg/dL Calcium (8.4-10.2) mg/dL Ionized Calcium Krystal (4.5-5.3) mg/dL Albumin 1.7 L (3.5-5.0) g/dL Procalcitonin (0.02-0.50) ng/mL Urine Protein (Negative) Urine Blood (Negative) Ur Leukocyte Esterase (Negative) Urine RBC (0-5) /hpf Urine Bacteria (None) /hpf Urine Yeast (Budding) (None) /hpf Crossmatch Microbiology - Last 24 Hours (Table) 12/19/23 16:44 Blood Culture - Final Blood Assessment and Plan (1) Sepsis Current Visit: Yes Status: Acute Code(s): A41.9 - SEPSIS, UNSPECIFIED ORGANISM SNOMED Code(s): 39900052 (2) Pneumonia Current Visit: Yes Status: Acute Code(s): J18.9 - PNEUMONIA, UNSPECIFIED ORGANISM SNOMED Code(s): 697019508 (3) Bacteremia Current Visit: Yes Status: Acute Code(s): R78.81 - BACTEREMIA SNOMED Code(s): 4174825 Plan: 1patient with pneumonia with a sputum showing Citrobacter and Pseudomonas aeruginosa for the patient is currently covered with Zosyn repeat sputum has been ordered results will be followed 2-patient did have a positive blood culture with staph epi that was oxacillin resistant as the patient did have a PICC line and the dialysis catheter he is on daptomycin repeat blood culture currently pending 3-patient also have significant excoriation around his jejunostomy tube site which is still leaking Eraxis was added the patient fever pattern has improved white count is trending down we will monitor closely Dictation was produced using [employer] dictation software. please excuse any grammatical, word or spelling errors. Time with Patient: Less than 30
--- NOTE | 2023-12-27 15:21 | P.PN ---
Subjective Progress Note Date: 12/27/23 Principal diagnosis: Reason for follow-up is pneumonia and bacteremia Patient is 73-year-old with male initial presentation to the hospital on 11/11/2021 for after the patient did have aspiration while undergoing elective endoscopy, diagnosed with a non-Hodgkin of, subsequently did have explained laparotomy for perforated small bowel abdominal washout and feeding jejunostomy tube patient did require dialysis catheter placement for dialysis during this hospital stay and tracheostomy for respiratory failure, infectious was consulted for fever. On today's evaluation that is 12/27/2023,the patient remains to be afebrile, patient is on ventilator through the trach FiO2 stable at 30% no significant purulent secretion through the ET still having drainage around his jejunostomy tube site no diarrhea with the change reported by the nursing staff. Patient white count is down to 10.8, creatinine is 1.90 blood cultures from 12/25/2023 is growing staph epi, sputum is growing Citrobacter and Pseudomonas with sensitivity pending Objective - Vital Signs Vital signs: Vital Signs Temp 98.7 F 12/27/23 08:00 Pulse 74 12/27/23 12:00 Resp 27 H 12/27/23 11:00 BP 127/88 12/27/23 07:00 Pulse Ox 94 L 12/27/23 11:00 FiO2 30 12/27/23 11:49 Intake & Output 12/26/23 12/27/23 12/27/23 18:59 06:59 18:59 Intake Total 764.785 0708.693 321.465 Output Total 605 635 400 Balance -0.252 1132.693 -78.535 Weight 100.6 kg Intake: IV 110 1660 250 0.9 KVO 110 560 250 Piperacillin-Tazobactam 3 1100 .375 gm In Sodium Chloride 0.9% 100 ml @ 25 mls/hr IVPB Q12HR [facility] Rx #:[id number] Intake, IV Titration 184.748 107.693 71.465 Amount Dexmedetomidine/0.9% NaCl 32.686 107.693 71.465 (Pmx) 400 mcg In Empty Bag 1 bag @ 0.2 MCG/KG/HR 4.94 mls/hr IV .[id number] [facility] Rx#:[id number] Norepinephrine 4 mg In 22.062 Sodium Chloride 0.9% 250 ml @ 0.03 MCG/KG/MIN 11. 03 mls/hr IV .Q23H2M [facility] Rx#:[id number] Sodium Acetate 30 meq 30 Potassium Acetate 30 meq Magnesium Sulfate gm 1 gm Calcium Gluconate 1 gm In Amino Acids 5 %/ Dextrose 20 % 1,000 ml @ 65 mls/hr IV .BY DURATION [facility] Rx#:[id number] propofoL 1,000 mg In 100.000 Empty Bag 1 bag @ 15 MCG/ KG/MIN 8.685 mls/hr IV . [id number] [facility] Rx#:[id number] Blood Product 310 Rc As-1 Unit 0 [id number] Output: Drainage 190 50 Right Abdomen 190 50 Urine 415 635 350 Other: Voiding Method Indwelling Catheter Indwelling Catheter ABP, PAP, CO, CI - Last Documented Arterial Blood Pressure 120/52 - Exam GENERAL DESCRIPTION: An elderly male lying in bed in no distress RESPIRATORY SYSTEM: Unlabored breathing , decreased breath sounds at bases HEART: S1 S2 regular rate and rhythm , ABDOMEN: Soft , no tenderness EXTREMITIES: No edema feet - Labs CBC & Chem 7: 12/27/23 03:30 12/27/23 03:30 Labs: Abnormal Lab Results - Last 24 Hours (Table) 12/23/23 12/26/23 12/26/23 Range/Units 17:15 16:30 17:47 WBC 13.2 H (3.8-10.6) k/uL RBC 2.91 L (4.30-5.90) m/uL Hgb 8.5 L D (13.0-17.5) gm/dL Hct 26.7 L (39.0-53.0) % RDW 17.9 H (11.5-15.5) % Plt Count 83 L (150-450) k/uL Neutrophils # 10.6 H (1.3-7.7) k/uL ABG pCO2 (35-45) mmHg ABG O2 Saturation (94-97) % Hemoglobin (13.0-17.5) gm/dL Chloride (98-107) mmol/L Carbon Dioxide (22-30) mmol/L BUN (9-20) mg/dL Creatinine (0.66-1.25) mg/dL Glucose (74-99) mg/dL POC Glucose (mg/dL) 141 H (70-110) mg/dL Calcium (8.4-10.2) mg/dL Total Protein (6.3-8.2) g/dL Albumin (3.5-5.0) g/dL Crossmatch See Detail 12/26/23 12/27/23 12/27/23 Range/Units 23:05 03:30 03:30 WBC 10.9 H (3.8-10.6) k/uL RBC 2.82 L (4.30-5.90) m/uL Hgb 8.1 L (13.0-17.5) gm/dL Hct 26.2 L (39.0-53.0) % RDW 18.0 H (11.5-15.5) % Plt Count 100 L (150-450) k/uL Neutrophils # (1.3-7.7) k/uL ABG pCO2 (35-45) mmHg ABG O2 Saturation (94-97) % Hemoglobin (13.0-17.5) gm/dL Chloride 121 H (98-107) mmol/L Carbon Dioxide 19 L (22-30) mmol/L BUN 46 H (9-20) mg/dL Creatinine 1.90 H (0.66-1.25) mg/dL Glucose 163 H (74-99) mg/dL POC Glucose (mg/dL) 190 H (70-110) mg/dL Calcium 6.9 L (8.4-10.2) mg/dL Total Protein 5.1 L (6.3-8.2) g/dL Albumin 1.8 L (3.5-5.0) g/dL Crossmatch 12/27/23 12/27/23 12/27/23 Range/Units 05:07 05:35 12:49 WBC (3.8-10.6) k/uL RBC (4.30-5.90) m/uL Hgb (13.0-17.5) gm/dL Hct (39.0-53.0) % RDW (11.5-15.5) % Plt Count (150-450) k/uL Neutrophils # (1.3-7.7) k/uL ABG pCO2 31 L (35-45) mmHg ABG O2 Saturation 98.4 H (94-97) % Hemoglobin 8.0 L (13.0-17.5) gm/dL Chloride (98-107) mmol/L Carbon Dioxide (22-30) mmol/L BUN (9-20) mg/dL Creatinine (0.66-1.25) mg/dL Glucose (74-99) mg/dL POC Glucose (mg/dL) 210 H 287 H (70-110) mg/dL Calcium (8.4-10.2) mg/dL Total Protein (6.3-8.2) g/dL Albumin (3.5-5.0) g/dL Crossmatch Microbiology - Last 24 Hours (Table) 12/25/23 12:52 Blood Culture Gram Stain - Preliminary Blood Blood Culture - Preliminary Molecular ID Assessment and Plan (1) Sepsis Current Visit: Yes Status: Acute Code(s): A41.9 - SEPSIS, UNSPECIFIED ORGANISM SNOMED Code(s): 03478875 (2) Pneumonia Current Visit: Yes Status: Acute Code(s): J18.9 - PNEUMONIA, UNSPECIFIED ORGANISM SNOMED Code(s): 254181212 (3) Bacteremia Current Visit: Yes Status: Acute Code(s): R78.81 - BACTEREMIA SNOMED Code(s): 9861681 Plan: 1patient with pneumonia with a sputum showing Citrobacter and Pseudomonas aeruginosa, the patient sputum repeat is still growing both these pathogen however sensitivities are pending we will continue with Zosyn 2-patient did have a positive blood culture with staph epi that was oxacillin resistant as the patient did have a PICC line and the dialysis catheter he is on daptomycin repeat blood culture currently growing oxacillin sensitive staph epi nursing staff has been advised to discuss with the vice president of development if no plan for the hemodialysis to discontinue the groin femoral catheter which may be the source 3-patient also have significant excoriation around his jejunostomy tube site which is still leaking Eraxis was added which will be continued as the patient fever pattern has improved white count is trending down we will apply Triad cream around the jejunostomy tube site to help decrease the excoriation Family the bedside questions answered Dictation was produced using [employer] dictation software. please excuse any grammatical, word or spelling errors. Time with Patient: Less than 30
--- NOTE | 2023-12-27 16:00 | P.PN ---
Subjective Progress Note Date: 12/27/23 73-year-old white male with history of chronic abdominal pain for the last 8 months has been treated with Protonix 40 mg daily for the last 3 months with no improvement. Patient had a 22 pound weight loss in the last [address] of the abdomen and pelvis 3 weeks ago showed thickening of the antral wall with pathological adenopathy posterior to the stomach suspicious of neoplasm. Today the patient underwent elective upper endoscopy to evaluate further, patient received IV sedation by anesthesia endoscope was inserted into the mouth, esophagus was intubated without any difficulty there was evidence of large amount of liquid and solid food noted in the stomach suggestive of gastric outlet obstruction. Scope could not be advanced through the pylorus, however in the prepyloric area there was a large superficial ulceration identified with multiple biopsies were done from this area. The body cardia and fundus could not adequately visualize because of large amount of retained food in the stomach . Scope was withdrawn back to the stomach and upon careful examination the mucosa of the antrum body and cardia as well as the fundus appeared normal. Procedure was being performed and biopsies were done patient threw up and subsequently became hypoxic there was clearly evidence of witnessed aspiration anesthesia intubated the patient, procedure was terminated, and the patient was transferred to the ICU, this consult was initiated. Patient is now on assist- control rate of 20 tidal volume 500 FiO2 70% PEEP of 10 ABG is pending, earlier ABG showed profound hypoxia patient is on propofol at 50 mcg/kg/min, next ABG is pending. Chest x-ray showed chronic changes without evidence of acute pulmonary disease. 12/27/2023 Patient is seen and evaluated with family at bedside; remains in the ICU intubated and mechanically ventilated. - ABG showed a pO2 of 99 pCO2 31 pH of 7.44. -- Remains on Eraxis daptomycin and Zosyn patient is intermittently requiring Dilaudid, Ativan does not seem to help his agitation and restlessness. -- Continues to have leakage around the jejunostomy tube, and patient is undergoing the J-tube exchange today. Family is at bedside, seems to be quite anxious about his overall condition, and I explained to the that we are doing the best we can considering his critical illness situation and critical illness polyneuropathy. Patient is profoundly weak, and weaning the patient from mechanical ventilation is almost impossible. At least not at this point yet WBC count is 10.9 hemoglobin is 8.1 basic metabolic profile is normal BUN is 46 creatinine 1.90 patient has been off hemodialysis since the . Chest x- ray continues to show stable findings with right upper lobe opacity and right lower lobe opacity and possibly a small right-sided pleural effusion ----Continue ventilatory support, now on IMV mode rate of 16 with pressure support of 14 Continue Precedex and use Dilaudid 0.5 mg every 2-3 hours as needed. Nutritional support patient is now on TPN, Possible J-tube changed today for J- tube malfunction Continue antibiotics including daptomycin and Zosyn, Eraxis was added by infectious disease Objective - Vital Signs Vital signs: Vital Signs Temp 97.9 F 12/27/23 04:00 Pulse 71 12/27/23 08:18 Resp 26 H 12/27/23 07:00 BP 127/88 12/27/23 07:00 Pulse Ox 97 12/27/23 07:00 FiO2 30 12/27/23 08:08 Intake & Output 12/26/23 12/27/23 12/27/23 18:59 06:59 18:59 Intake Total 018.088 8648.693 Output Total 605 635 Balance -0.252 1132.693 Weight 100.6 kg Intake: IV 110 1660 0.9 KVO 110 560 Piperacillin-Tazobactam 3 1100 .375 gm In Sodium Chloride 0.9% 100 ml @ 25 mls/hr IVPB Q12HR [facility] Rx #:[id number] Intake, IV Titration 184.748 107.693 Amount Dexmedetomidine/0.9% NaCl 32.686 107.693 (Pmx) 400 mcg In Empty Bag 1 bag @ 0.2 MCG/KG/HR 4.94 mls/hr IV .[id number] [facility] Rx#:[id number] Norepinephrine 4 mg In 22.062 Sodium Chloride 0.9% 250 ml @ 0.03 MCG/KG/MIN 11. 03 mls/hr IV .Q23H2M [facility] Rx#:[id number] Sodium Acetate 30 meq 30 Potassium Acetate 30 meq Magnesium Sulfate gm 1 gm Calcium Gluconate 1 gm In Amino Acids 5 %/ Dextrose 20 % 1,000 ml @ 65 mls/hr IV .BY DURATION [facility] Rx#:[id number] propofoL 1,000 mg In 100.000 Empty Bag 1 bag @ 15 MCG/ KG/MIN 8.685 mls/hr IV . [id number] [facility] Rx#:[id number] Blood Product 310 Rc As-1 Unit 0 [id number] Output: Drainage 190 Right Abdomen 190 Urine 415 635 Other: Voiding Method Indwelling Catheter Indwelling Catheter ABP, PAP, CO, CI - Last Documented Arterial Blood Pressure 153/65 - Exam General: Revealed 73-year-old white male on mechanical ventilation with IMV mode and pressure support as noted earlier. On Precedex. Skin: Skin is warm and dry and no rashes or lesions are noted. Eye: Pupils are equal, round and reactive to light, extra-ocular movements are intact; there is normal conjunctiva bilaterally. Ears, nose, mouth and throat: There are moist mucous membranes and no oral lesions. Neck: The neck is supple, there is no tenderness or JVD. Tracheostomy is intact. No air leak noted today Cardiovascular: There is a regular rate and rhythm. No murmur, rub or gallop is appreciated. Respiratory: Crackles at the bases, no rhonchi no wheezes Gastrointestinal: no rebound, no guarding, no bowel sounds, positive leak noted around the jejunostomy tube, being addressed by surgery on the case, considering changing J-tube today Musculoskeletal: No deformities and no limitation range of motion other the patient seems to be generally weak. 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 Neurological: Patient is arousable but not appropriate, gets extremely agitated Extremities: 1+ bipedal edema - Labs CBC & Chem 7: 12/27/23 03:30 12/27/23 03:30 Labs: Abnormal Lab Results - Last 24 Hours (Table) 12/23/23 12/26/23 12/26/23 Range/Units 17:15 16:30 17:47 WBC 13.2 H (3.8-10.6) k/uL RBC 2.91 L (4.30-5.90) m/uL Hgb 8.5 L D (13.0-17.5) gm/dL Hct 26.7 L (39.0-53.0) % RDW 17.9 H (11.5-15.5) % Plt Count 83 L (150-450) k/uL Neutrophils # 10.6 H (1.3-7.7) k/uL ABG pCO2 (35-45) mmHg ABG O2 Saturation (94-97) % Hemoglobin (13.0-17.5) gm/dL Chloride (98-107) mmol/L Carbon Dioxide (22-30) mmol/L BUN (9-20) mg/dL Creatinine (0.66-1.25) mg/dL Glucose (74-99) mg/dL POC Glucose (mg/dL) 141 H (70-110) mg/dL Calcium (8.4-10.2) mg/dL Total Protein (6.3-8.2) g/dL Albumin (3.5-5.0) g/dL Crossmatch See Detail 12/26/23 12/27/23 12/27/23 Range/Units 23:05 03:30 03:30 WBC 10.9 H (3.8-10.6) k/uL RBC 2.82 L (4.30-5.90) m/uL Hgb 8.1 L (13.0-17.5) gm/dL Hct 26.2 L (39.0-53.0) % RDW 18.0 H (11.5-15.5) % Plt Count 100 L (150-450) k/uL Neutrophils # (1.3-7.7) k/uL ABG pCO2 (35-45) mmHg ABG O2 Saturation (94-97) % Hemoglobin (13.0-17.5) gm/dL Chloride 121 H (98-107) mmol/L Carbon Dioxide 19 L (22-30) mmol/L BUN 46 H (9-20) mg/dL Creatinine 1.90 H (0.66-1.25) mg/dL Glucose 163 H (74-99) mg/dL POC Glucose (mg/dL) 190 H (70-110) mg/dL Calcium 6.9 L (8.4-10.2) mg/dL Total Protein 5.1 L (6.3-8.2) g/dL Albumin 1.8 L (3.5-5.0) g/dL Crossmatch 12/27/23 12/27/23 Range/Units 05:07 05:35 WBC (3.8-10.6) k/uL RBC (4.30-5.90) m/uL Hgb (13.0-17.5) gm/dL Hct (39.0-53.0) % RDW (11.5-15.5) % Plt Count (150-450) k/uL Neutrophils # (1.3-7.7) k/uL ABG pCO2 31 L (35-45) mmHg ABG O2 Saturation 98.4 H (94-97) % Hemoglobin 8.0 L (13.0-17.5) gm/dL Chloride (98-107) mmol/L Carbon Dioxide (22-30) mmol/L BUN (9-20) mg/dL Creatinine (0.66-1.25) mg/dL Glucose (74-99) mg/dL POC Glucose (mg/dL) 210 H (70-110) mg/dL Calcium (8.4-10.2) mg/dL Total Protein (6.3-8.2) g/dL Albumin (3.5-5.0) g/dL Crossmatch Microbiology - Last 24 Hours (Table) 12/25/23 12:52 Blood Culture - Preliminary Blood Assessment and Plan Assessment: 1. Acute hypoxic respiratory failure requiring intubation mechanical ventilation secondary to aspiration during upper endoscopy most likely secondary to gastric outlet obstruction Continue ventilatory support Continue DuoNeb 3 mL elation 4 times daily, Solu-Medrol 40 mg IV daily Continuing to evaluate for placement of a long-term acute care facility 2. Paroxysmal atrial fibrillation - resolved at the moment Normal on telemetry, patient noted to be in A-fib with RVR 3. CRISTAL secondary to sepsis and septic shock Patient receiving hemodialysis since 11/28 Continue to monitor patient's urine output 4. Acute aspiration at night as secondary to acute aspiration during upper endoscopy most likely secondary to gastric outlet obstruction secondary to non- Hodgkin's lymphoma based on the pathology from stomach biopsies Patient had been on IV Zosyn and vancomycin have been discontinued Has received 14 days total of antibiotics, combined Zosyn, vancomycin, meropenem 5. 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
[2023-12-27 17:40] LABS: Glucose,Whole Blood 221 mg/dL (70-110)
[2023-12-27 23:26] LABS: Glucose,Whole Blood 222 mg/dL (70-110)
[2023-12-28] MEDS ORDERED: 1: MVI, ADULT NO.4 WITH VIT K 10 ML, TRACE (CONC-1ML/DOSE) 1 ML, SODIUM ACETATE 30 MEQ, IV SCH (05:00)
[2023-12-28 05:11] LABS: ABG Base Excess -3.4 mmol/L; ABG HCO3 20 mmol/L (21-25); ABG PCO2 31 mmHg (35-45); ABG PH 7.43 (7.35-7.45); ABG PO2 113 mmHg (83-108); ABG TCO2 21 mmol/L (19-24); Allen Test Performed? Yes
[2023-12-28 05:27] LABS: Glucose,Whole Blood 248 mg/dL (70-110)
[2023-12-28 05:37] LABS: Anisocytosis Slight; Basophils % (A) 0 %; Eosinophils % (A) 0 %; HCT 24.1 % (39.0-53.0); HGB 7.9 gm/dL (13.0-17.5); Hypochromasia Slight; Lymphocytes # (A) 1.8 k/uL (1.0-4.8); Lymphocytes % (A) 23 %; MCH 29.7 pg (25.0-35.0); MCHC 32.7 g/dL (31.0-37.0); Mean Platelet Volume 9.9; Monocytes # (A) 0.2 k/uL (0-1.0); Monocytes % (A) 3 %; Neutrophils # (A) 5.5 k/uL (1.3-7.7); Neutrophils % (A) 72 %; Poikilocytosis Slight; RBC 2.65 m/uL (4.30-5.90); RDW 18.3 % (11.5-15.5); WBC 7.6 k/uL (3.8-10.6)
[2023-12-28 05:41] LABS: Platelet Count 73 k/uL (150-450)
[2023-12-28 05:49] LABS: ALT 28 U/L (4-49); AST 22 U/L (17-59); African American GFR (CKD) 53 (>60 ml/min/1.73 sqM); Albumin 1.7 g/dL (3.5-5.0); Alkaline Phosphatase 93 U/L (38-126); Anion Gap 2 mmol/L; Blood Urea Nitrogen 45 mg/dL (9-20); Calcium 6.8 mg/dL (8.4-10.2); Carbon Dioxide 20 mmol/L (22-30); Chloride 122 mmol/L (98-107); Glucose 234 mg/dL (74-99); Magnesium 1.8 mg/dL (1.6-2.3); Non-African American GFR(CKD) 46 (>60 ml/min/1.73 sqM); Phosphorus 2.4 mg/dL (2.5-4.5); Potassium 3.5 mmol/L (3.5-5.1); Sodium 144 mmol/L (137-145); Total Bilirubin 1.2 mg/dL (0.2-1.3); Total Protein 4.9 g/dL (6.3-8.2)
[2023-12-28] MEDS: MAGNESIUM SULFATE-D5W PMX 1 GM in DEXTROSE/WATER 1 100ML.BAG IVPB ONE (06:58)
--- NOTE | 2023-12-28 07:27 | XR ---
EXAMINATION TYPE: XR chest 1V DATE OF EXAM: 12/28/2023 5:43 AM CLINICAL INDICATION: Male, 73 years old with history of Ventilator pt.; [facility] COMPARISON: Chest radiograph from one day prior. TECHNIQUE: XR chest 1V Frontal view of the chest.. FINDINGS: Lungs/Pleura: Right apical cavitary lesion unchanged from prior. No evidence of focal consolidation o r pneumothorax. Blunting of the costophrenic angles is present. Pulmonary vascularity: Unremarkable. Heart/mediastinum: Cardiomediastinal silhouette is unremarkable. Musculoskeletal: No acute osseous pathology. Other findings: None Lines/Tubes: Tracheostomy cannula tip projecting over the trachea. [id number] projecting over the right hemithorax with distal tip at the cavoatrial junction. Left-sided PICC with distal tip at the superior vena cava/brachiocephalic confluence. IMPRESSION: Stable exam with mild right apical cavitary lesion and consolidation changes as seen on CT. [facility], , 12/28/2023 7:24 AM
[2023-12-28] MEDS: POTASSIUM CHLORIDE 20 MEQ in WATER FOR INJECTION 1 100ML.BAG IVPB SCH (09:21)
[2023-12-28] MEDS: 1: MVI, ADULT NO.4 WITH VIT K 10 ML, TRACE (CONC-1ML/DOSE) 1 ML, SODIUM ACETATE 30 MEQ, IV SCH (09:25)
--- NOTE | 2023-12-28 11:20 | P.PN ---
Subjective Patient is seen in follow-up for acute kidney injury. Patient underwent exploratory laparotomy with small bowel obstruction NG tube replacement Sep tem2023. Nonoliguric. Started on hemodialysis November 29, 2023. Last dialysis December 18, 2023. Status post tracheostomy December 10, 2023. Renal function continues to improve. Tube feeds currently held. Receiving TPN. Last received unit of blood December 26, 2023. Off Levophed. Vital signs stable. General: Resting in bed. HEENT: Tracheostomy noted. LUNGS: Scattered rhonchi. HEART: Regular rate and rhythm. ABDOMEN: No drainage. EXTREMITITES: Trace edema. Objective - Vital Signs Vital signs: Vital Signs Temp 98.2 F 12/28/23 04:00 Pulse 64 12/28/23 08:02 Resp 26 H 12/28/23 07:00 BP 145/87 12/28/23 07:00 Pulse Ox 98 12/28/23 07:00 FiO2 30 12/28/23 07:55 Intake & Output 12/27/23 12/28/23 12/28/23 18:59 06:59 18:59 Intake Total 981.465 919.077 80.923 Output Total 1000 725 60 Balance -18.535 194.077 20.923 Weight 100.6 kg 100.7 kg Intake: IV 650 650 50 0.9 KVO 650 550 50 Piperacillin-Tazobactam 3 100 .375 gm In Sodium Chloride 0.9% 100 ml @ 25 mls/hr IVPB Q12HR [facility] Rx #:[id number] Intake, IV Titration 331.465 269.077 30.923 Amount Dexmedetomidine/0.9% NaCl 71.465 269.077 30.923 (Pmx) 400 mcg In Empty Bag 1 bag @ 0.2 MCG/KG/HR 4.94 mls/hr IV .[id number] [facility] Rx#:[id number] Sodium Acetate 30 meq 260 Potassium Acetate 30 meq Magnesium Sulfate gm 1.5 gm Calcium Gluconate 1 gm In Amino Acids 5 %/ Dextrose 20 % 1,000 ml @ 65 mls/hr IV .BY DURATION [facility] Rx#:[id number] Output: Drainage 100 140 Right Abdomen 100 140 Urine 900 585 60 Other: Voiding Method Indwelling Catheter Indwelling Catheter ABP, PAP, CO, CI - Last Documented Arterial Blood Pressure 167/71 - Labs CBC & Chem 7: 12/28/23 05:20 12/28/23 05:20 Labs: Abnormal Lab Results - Last 24 Hours (Table) 12/27/23 12/27/23 12/27/23 Range/Units 12:49 17:39 23:25 RBC (4.30-5.90) m/uL Hgb (13.0-17.5) gm/dL Hct (39.0-53.0) % RDW (11.5-15.5) % Plt Count (150-450) k/uL ABG pCO2 (35-45) mmHg ABG pO2 (83-108) mmHg ABG HCO3 (21-25) mmol/L ABG O2 Saturation (94-97) % Hemoglobin (13.0-17.5) gm/dL Chloride (98-107) mmol/L Carbon Dioxide (22-30) mmol/L BUN (9-20) mg/dL Creatinine (0.66-1.25) mg/dL Glucose (74-99) mg/dL POC Glucose (mg/dL) 287 H 221 H 222 H (70-110) mg/dL Calcium (8.4-10.2) mg/dL Phosphorus (2.5-4.5) mg/dL Total Protein (6.3-8.2) g/dL Albumin (3.5-5.0) g/dL 12/28/23 12/28/23 12/28/23 Range/Units 05:07 05:20 05:20 RBC 2.65 L (4.30-5.90) m/uL Hgb 7.9 L (13.0-17.5) gm/dL Hct 24.1 L (39.0-53.0) % RDW 18.3 H (11.5-15.5) % Plt Count 73 L (150-450) k/uL ABG pCO2 31 L (35-45) mmHg ABG pO2 113 H (83-108) mmHg ABG HCO3 20 L (21-25) mmol/L ABG O2 Saturation 99.0 H (94-97) % Hemoglobin 7.8 L (13.0-17.5) gm/dL Chloride 122 H (98-107) mmol/L Carbon Dioxide 20 L (22-30) mmol/L BUN 45 H (9-20) mg/dL Creatinine 1.51 H (0.66-1.25) mg/dL Glucose 234 H (74-99) mg/dL POC Glucose (mg/dL) (70-110) mg/dL Calcium 6.8 L (8.4-10.2) mg/dL Phosphorus 2.4 L (2.5-4.5) mg/dL Total Protein 4.9 L (6.3-8.2) g/dL Albumin 1.7 L (3.5-5.0) g/dL 12/28/23 Range/Units 05:26 RBC (4.30-5.90) m/uL Hgb (13.0-17.5) gm/dL Hct (39.0-53.0) % RDW (11.5-15.5) % Plt Count (150-450) k/uL ABG pCO2 (35-45) mmHg ABG pO2 (83-108) mmHg ABG HCO3 (21-25) mmol/L ABG O2 Saturation (94-97) % Hemoglobin (13.0-17.5) gm/dL Chloride (98-107) mmol/L Carbon Dioxide (22-30) mmol/L BUN (9-20) mg/dL Creatinine (0.66-1.25) mg/dL Glucose (74-99) mg/dL POC Glucose (mg/dL) 248 H (70-110) mg/dL Calcium (8.4-10.2) mg/dL Phosphorus (2.5-4.5) mg/dL Total Protein (6.3-8.2) g/dL Albumin (3.5-5.0) g/dL Microbiology - Last 24 Hours (Table) 12/25/23 12:52 Blood Culture Gram Stain - Preliminary Blood Blood Culture - Preliminary Staphlyococcus [email or web address] Molecular ID 12/25/23 16:49 Gram Stain - Preliminary Sputum Sputum Culture - Preliminary Citrobacter freundii Pseudomonas aeruginosa Assessment and Plan Plan: Assessment: 1. Acute kidney injury secondary to ATN secondary to septic shock. Creatinine 0.86 on admission and up to 5.38 dated November 29, 2023. Urine output improved, now nonoliguric. UA fairly benign. No hydronephrosis noted on imaging. Started on hemodialysis November 29, 2023 due to volume overload. Patient initially had a right femoral catheter placed which subsequently became occluded and a left tunneled femoral catheter was placed December 06, 2023. Renal function improving with creatinine improved to 1.5 today. 2. Perforated small bowel status post exploratory laparotomy with abdominal washout, small bowel resection and J-tube replacement November 25, 2023. 3. A-fib with RVR. s/p amiodarone drip. Also received digoxin this admission. 4. Recently diagnosed gastric B-cell lymphoma. 5. Septic shock. Likely abdominal source. On IV antibiotics. Blood culture positive for staph. The dialysis catheter is tunneled. Also potential source can be PICC line. 6. Hypocalcemia secondary to acute kidney injury. Replaced. Improved. 7. Metabolic acidosis secondary to acute kidney injury and partially from compensation for underlying respiratory alkalosis. Improved. 8. Volume overload. Improved with diuresis and ultrafiltration. 9. Status post tracheostomy December 10, 2023. 10. Anemia. Component of chronic illness and acute blood loss. Received blood transfusions and DDAVP this admission. On Aranesp. 11. Respiratory alkalosis. 12. Hypernatremia from lack of oral water intake. Status post D5W. Stable. Plan: Continue to hold hemodialysis. Last dialysis December 18, 2023. Receiving TPN. Change IV fluids from normal saline to half-normal saline. Avoid nephrotoxins. Preserved EF noted on echocardiogram. Case discussed with present at bedside. Maintain midodrine. Discontinue dialysis catheter. Potassium being replaced.
--- NOTE | 2023-12-28 11:42 | P.PN ---
Subjective Progress Note Date: 12/28/23 Principal diagnosis: Acute hypoxic respiratory failure requiring intubation mechanical ventilation secondary to aspiration. This is a 73-year-old white male with history of chronic abdominal pain for the last 8 months has been treated with Protonix 40 mg daily for the last 3 months with no improvement. Patient had a 22 pound weight loss in the last [address] of the abdomen and pelvis 3 weeks ago showed thickening of the antral wall with pathological adenopathy posterior to the stomach suspicious of neoplasm. Today the patient underwent elective upper endoscopy to evaluate further, patient received IV sedation by anesthesia endoscope was inserted into the mouth, esop hagus was intubated without any difficulty there was evidence of large amount of liquid and solid food noted in the stomach suggestive of gastric outlet obstruction. Scope could not be advanced through the pylorus, however in the prepyloric area there was a large superficial ulceration identified with multiple biopsies were done from this area. The body cardia and fundus could not adequately visualize because of large amount of retained food in the stomach. Scope was withdrawn back to the stomach and upon careful examination the mucosa of the antrum body and cardia as well as the fundus appeared normal. Procedure was being performed and biopsies were done patient threw up and subsequently became hypoxic there was clearly evidence of witnessed aspiration anesthesia intubated the patient, procedure was terminated, and the patient was transferred to the ICU, this consult was initiated. Patient is now on assist- control rate of 20 tidal volume 500 FiO2 70% PEEP of 10 ABG is pending, earlier ABG showed profound hypoxia patient is on propofol at 50 mcg/kg/min, next ABG is pending. Chest x-ray showed chronic changes without evidence of acute pulmonary disease. 12/20/2023, the patient is being seen for a follow-up. More alert and awake compared to yesterday. He is able to move his fingers and toes on today's evaluation. Following commands. Nevertheless, his J tube has been clogged and was unable to utilize the tube that has been some leaks around the tube. No abdominal distention. No nausea or emesis. Hemodynamically stable. Will undergo hemodialysis today. He remains on pressure control mode of mechanical ventilation at rate of 16, pressure of 10, +5 PEEP with an FiO2 of 30%. Chest x-ray from today is essentially unchanged with a stable cavity in his right uppe r lobe. White cell count of 15.7, hemoglobin 7.2, platelet count is 203, blood gas showed a pH of 7.49 with a pCO2 of 33 and pO2 of 73. BUN is 88 with a creatinine 1.89 and sodium is at 141 with a potassium level of 4.1. He is producing adequate amount of urine output. Fluid balance has been -900 cc over the past 24 hours. Normotensive. Remains on a combination of Zosyn and daptomycin. Remains on Levemir insulin 24 units daily. This is currently on hold as the patient has not been able to obtain enteral feeding. Wound VAC still in place. 12/21/2023, the patient remains on the mechanical ventilator. Overnight, the patient experienced discomfort in his abdomen and he was restless. Based on that, the patient was placed on a higher dose of Precedex which is currently running at 0.6 mcg/kg/h. The patient was also asynchronous with the mechanical ventilator and based on that, the patient was switched to an AC mode and currently is at a rate of 16, tidal volume of 400, FiO2 of 30% with a PEEP of 5. The patient is adequately sedated for now. Chest x-ray remains unchanged. Tra cheostomy tube in place and the patient is having increased amount of respiratory secretions. J tube needs to be replaced today and this will be done by his general surgery as the tube remains clogged. Urine output is low order of 30 cc an hour. Afebrile. Remains on Zosyn and daptomycin. White cell count is 16.9, hemoglobin 7.4 and a platelet count of 280. Blood gas from today showed a pH of 7.46 with a pCO2 of 36 and pO2 of 82. Sodium levels of 144, BUN is 19 with a creatinine of 2.2 and a serum bicarb is at 23. The abdominal wound remains unchanged. RAYA drain is serosanguineous. 12/22/2023, patient remains on Precedex at 0.4 mcg/kg/min. Arousable. Communicates. Profoundly weak. Remains on the mechanical ventilator with a right lung abscess. SIMV mode mode rate of 16, tidal volume of 400, FiO2 30% with a PEEP of 5, with a pressure support of 8. Blood gas showed a pH of 7.46 with a pCO2 of 32 and a pO2 of 82. Chest x-ray remains unchanged with a right upper lobe cavitating lesion/opacity and a suspected lung abscess. This is rated Pseudomonas and the patient remains on IV Zosyn. He remains on daptomycin. Urine output is in order of 50 cc an hour.. The J-tube was unplugged yesterday. Nevertheless, the tube itself is malfunctioning and there is drainage around the tube requiring dressing changes the dressings being soakedConstantly. The patient's white cell count is 12.3 with a hemoglobin 7.7. Sodium is at 149, BUN 91 with a creatinine of 2.3. Bicarb is at 20. Undergoing hemodialysis periodically. Last hemodialysis was on 12/21/2023. Currently NPO. Abdominal wound is clean and the patient has a wound VAC in place. RAYA drain output is serosanguineous. Patient was seen today on 12/23/2023, remains in the ICU, intubated and mechanically ventilated. Patient is on IMV with pressure support/IMV 16, pressure support of 8, tidal volume 400, PEEP of 5. Patient seems to be doing well with that kind of mode of mechanical ventilation, ABG showed a pO2 of 76 pCO2 28 pH of 7.50. I changed his rate from 16-8 kept him otherwise on the same ventilator settings. Plan to gradually go down on the IMV rate until we can get him on pressure support of 8 and CPAP. Patient is requiring Precedex at 0.4 mcg/kg/h, he is on D5W at 50 cc/h. Remains on antibiotics in the form of daptomycin and Zosyn, chest x-ray continues to show bilateral airspace disease and right upper lobe lung abscess. Continues to have a bit of a leak from his J-tube being addressed by surgery has a wound VAC, and he had a RAYA drain. Mentation arce the patient is a bit more appropriate, opens his eyes, follows very simple instructions, seems to comprehend. Patient has a left brachial PICC line, he also has a left groin hemodialysis catheter. WBC count is 10.1 hemoglobin is 7 sodium is 149 potassium 4 chloride is 121 BUN is 86 creatinine 2.31. Blood sugar is 173. Remains on enteral feeding via J-tube, a bit of a leak is noted, and surgery is to address this. Sputum cultures have grown Klebsiella and Pseudomonas and remains on proper antibiotics Patient was seen and examined today on 12/24/2023, patient remains in the ICU, and mechanically ventilated. On IMV mode of 8 pressure support of 8 tidal volume 400 FiO2 30% and PEEP of 5 ABG showed a pO2 of 81 pCO2 32 pH of 7.45. Patient remains on daptomycin and Zosyn, remains on Precedex at 0.4 mcg/kg/h intermittently receiving Dilaudid for pain. Feeding arce is presently on hold, patient had a leak around the jejunostomy tube, surgery is recommending a trickle feed or TPN if could not use the J-tube. Patient is arousable follows simple instructions, and today I had a chance to get rid of the IMV mode, and I am recommending a pressure support of 8 and CPAP. For the last few hours the patient has been tolerating this mode of mechanical ventilation, however he is not quite ready to go to [facility] at this point. Chest x-ray continues to show significant opacity in the right upper lobe and airspace disease in the right lower lobe. Previously patient had a CT of the chest showing right upper lobe abscess. Again he remains on Zosyn and daptomycin.Labs today showed WBC count of 10.6 hemoglobin 7.8 sodium is 147, patient is now on D5W at 100 cc an hour his bicarb is 19 BUN 74 creatinine 2.08, gradually improving, his last hemodialysis was on the , nephrology is considering removing his dialysis catheter in the left groin and I believe that is appropriate patient was seen and examined today on 12/25/2023, remains in the ICU, intubated and mechanically ventilated. Patient had to be placed back on assist-control mode of mechanical ventilation yesterday, mostly because he developed s ignificant agitation and restlessness, and ongoing persistent cough with some air leak from the cough of that tracheostomy. Patient had to be sedated and he was placed on propofol and he remains on propofol at 50 mcg/kg/min. Maximal dose of Precedex yesterday could not calm him down, hence we had to transition him from pressure support/CPAP mode of mechanical ventilation to assist-control mode of mechanical ventilation and fully sedated him with propofol replacing Precedex. Today the patient is sedated, he is on assist-control rate of 16 tidal volume 400 FiO2 30% PEEP of 5 ABG showed a pO2 of 98 pCO2 30 pH of 7.45 chest x-ray is basically the same showing significant airspace disease in the right upper lobe and right lower lobe. Remains on daptomycin and Zosyn. His IV fluid was transitioned to D5 4 5 from D5W sodium today is 141. His urine output is about 40 to 50 cc/h, renal profile is improving with steady trending of creatinine down. Patient continues to have leakage around the jejunostomy tube. Patient is being followed by surgery no specific recommendation made except to continue the same and except the leak as it isLabs today showed WBC count of 11.5 hemoglobin 8.2 basic metabolic profile is normal BUN is 60 creatinine down to 1.81 Patient seen today on 12/26/2023, remains in the ICU intubated mechanically ventilated sedated patient is on assist-control rate of 16 tidal volume 400 FiO2 30% PEEP of 5 ABG showed a pO2 of 82 pCO2 34 pH of 7.43. Patient is now on TPN at 30 cc/h propofol at 50 mcg/kg/min hemoglobin is down to 6.8 today and he is receiving a unit of packed RBCs. His IV fluids at 50 cc/h in the form of 0.9 normal saline. He was last night on a small dose of norepinephrine at 0.01 mcg/kg/min and is presently on hold. Antibiotics arce patient is on Zosyn daptomycin and Eraxis. Chest x-ray continues to show significant airspace disease involving the right upper lobe and right lower lobe not much of a change noted on the chest x-ray. Clinically the patient is about the same, today I plan to discontinue propofol, arrange for the patient to go on Precedex, and assess mental status off sedation. If tolerated, may transition the patient a gain to pressure support and CPAP type of mechanical ventilation, but he is not ready to go to that transition yet. WBC count is 11.6 hemoglobin 6.8. ABG today showed a pO2 of 82 pCO2 34 pH of 7.43 potassium is 3.3 being addressed accordingly BUN is 53 creatinine 1.84 Patient was evaluated today on 12/27/2023, remains in the ICU intubated and mechanically ventilated. Patient is presently on IMV mode of mechanical ventilation with pressure support rate of 16 pressure support 14 tidal volume 400 FiO2 30% and PEEP of 5 ABG showed a pO2 of 99 pCO2 31 pH of 7.44. Intermittently the patient has been experiencing episodes of extreme agitation and restlessness he is on Precedex at 0.5 mcg/kg/h. Patient is on IV fluid 0.9 normal saline at 50 cc/h and is also receiving TPN. Remains on Eraxis daptomycin and Zosyn patient is intermittently requiring Dilaudid, Ativan does not seem to help his agitation and restlessness. But Dilaudid does hence I would recommend 0.5 mg every 2-3 hours as needed for agitation. Patient has good urine output roughly about 100 cc/h. Continues to have leakage around the jejunostomy tube, and patient is undergoing the J-tube exchange today. Family is at bedside, seems to be quite anxious about his overall condition, and I explained to the that we are doing the best we can considering his critical illness situation and critical illness polyneuropathy. Patient is profoundly weak, and weaning the patient from mechanical ventilation is almost impossible. At least not at this point yet WBC count is 10.9 hemoglobin is 8.1 basic metabolic profile is normal BUN is 46 creatinine 1.90 patient has been off hemodialysis since the . Chest x-ray continues to show stable findings with right upper lobe opacity and right lower lobe opacity and possibly a small right-sided pleural effusion Was evaluated today on 12/28/2023, patient remains in the ICU, intubated and mechanically ventilated, on IMV mode of mechanical ventilation rate set at 16 he is on pressure support of 14 tidal volume 400 FiO2 30% and PEEP of 5 ABG showed a pO2 of 113 pCO2 31 pH of 7.43. No major events overnight, patient is still requiring Precedex at 0.7 mcg/kg/h. He is on TPN as we could not use his jejunostomy tube, no jejunostomy tube was done yesterday, IV fluid is 0.9 at 50 cc/h remains on TPN at 65 cc/h patient is on Eraxis daptomycin and Zosyn. Chest x-ray is showing improvement in his right upper lobe airspace disease/lung abscess and there is a slight improvement in his right lower lobe opacity. Patient is arousable but does not follow any instructions, patient gets agitated easily if aroused and he started gagging on the tracheostomy tube. Family is at bedside, again updated on his condition. WBC count is 7.6 hemoglobin 7.9. Basic metabolic profile is normal BUN is 45 creatinine down to 1.51 patient has not had any dialysis since 12/17, his renal functioning and urine output continues to improve, hence I am strongly recommending removing his dialysis catheter Objective - Vital Signs Vital signs: Vital Signs Temp 98.2 F 12/28/23 04:00 Pulse 65 12/28/23 11:24 Resp 26 H 12/28/23 07:00 BP 145/87 12/28/23 07:00 Pulse Ox 98 12/28/23 07:00 FiO2 30 12/28/23 11:14 Intake & Output 12/27/23 12/28/23 12/28/23 18:59 06:59 18:59 Intake Total 981.465 919.077 80.923 Output Total 1000 725 60 Balance -18.535 194.077 20.923 Weight 100.6 kg 100.7 kg Intake: IV 650 650 50 0.9 KVO 650 550 50 Piperacillin-Tazobactam 3 100 .375 gm In Sodium Chloride 0.9% 100 ml @ 25 mls/hr IVPB Q12HR [facility] Rx #:[id number] Intake, IV Titration 331.465 269.077 30.923 Amount Dexmedetomidine/0.9% NaCl 71.465 269.077 30.923 (Pmx) 400 mcg In Empty Bag 1 bag @ 0.2 MCG/KG/HR 4.94 mls/hr IV .[id number] [facility] Rx#:[id number] Sodium Acetate 30 meq 260 Potassium Acetate 30 meq Magnesium Sulfate gm 1.5 gm Calcium Gluconate 1 gm In Amino Acids 5 %/ Dextrose 20 % 1,000 ml @ 65 mls/hr IV .BY DURATION [facility] Rx#:[id number] Output: Drainage 100 140 Right Abdomen 100 140 Urine 900 585 60 Other: Voiding Method Indwelling Catheter Indwelling Catheter ABP, PAP, CO, CI - Last Documented Arterial Blood Pressure 167/71 - Exam General: Revealed 73-year-old white male on mechanical ventilation, on Precedex, receiving intermittently Dilaudid but no Ativan Skin: Skin is warm and dry and no rashes or lesions are noted. Eye: Pupils are equal, round and reactive to light, extra-ocular movements are intact; there is normal conjunctiva bilaterally. Ears, nose, mouth and throat: There are moist mucous membranes and no oral lesions. Neck: The neck is supple, there is no tenderness or JVD. Tracheostomy is intact. No air leak noted today Cardiovascular: There is a regular rate and rhythm. No murmur, rub or gallop is appreciated. Respiratory: Crackles at the bases, no rhonchi no wheezes Gastrointestinal: no rebound, no guarding, no bowel sounds, positive leak noted around the jejunostomy tube, being addressed by surgery on the case Musculoskeletal: No deformities and no limitation range of motion other the patient seems to be generally weak. 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 Neurological: Patient is arousable does not follow any instructions today. Extremities: 1+ bipedal edema - Labs CBC & Chem 7: 12/28/23 05:20 12/28/23 05:20 Labs: Abnormal Lab Results - Last 24 Hours (Table) 12/27/23 12/27/23 12/27/23 Range/Units 12:49 17:39 23:25 RBC (4.30-5.90) m/uL Hgb (13.0-17.5) gm/dL Hct (39.0-53.0) % RDW (11.5-15.5) % Plt Count (150-450) k/uL ABG pCO2 (35-45) mmHg ABG pO2 (83-108) mmHg ABG HCO3 (21-25) mmol/L ABG O2 Saturation (94-97) % Hemoglobin (13.0-17.5) gm/dL Chloride (98-107) mmol/L Carbon Dioxide (22-30) mmol/L BUN (9-20) mg/dL Creatinine (0.66-1.25) mg/dL Glucose (74-99) mg/dL POC Glucose (mg/dL) 287 H 221 H 222 H (70-110) mg/dL Calcium (8.4-10.2) mg/dL Phosphorus (2.5-4.5) mg/dL Total Protein (6.3-8.2) g/dL Albumin (3.5-5.0) g/dL 12/28/23 12/28/23 12/28/23 Range/Units 05:07 05:20 05:20 RBC 2.65 L (4.30-5.90) m/uL Hgb 7.9 L (13.0-17.5) gm/dL Hct 24.1 L (39.0-53.0) % RDW 18.3 H (11.5-15.5) % Plt Count 73 L (150-450) k/uL ABG pCO2 31 L (35-45) mmHg ABG pO2 113 H (83-108) mmHg ABG HCO3 20 L (21-25) mmol/L ABG O2 Saturation 99.0 H (94-97) % Hemoglobin 7.8 L (13.0-17.5) gm/dL Chloride 122 H (98-107) mmol/L Carbon Dioxide 20 L (22-30) mmol/L BUN 45 H (9-20) mg/dL Creatinine 1.51 H (0.66-1.25) mg/dL Glucose 234 H (74-99) mg/dL POC Glucose (mg/dL) (70-110) mg/dL Calcium 6.8 L (8.4-10.2) mg/dL Phosphorus 2.4 L (2.5-4.5) mg/dL Total Protein 4.9 L (6.3-8.2) g/dL Albumin 1.7 L (3.5-5.0) g/dL 12/28/23 Range/Units 05:26 RBC (4.30-5.90) m/uL Hgb (13.0-17.5) gm/dL Hct (39.0-53.0) % RDW (11.5-15.5) % Plt Count (150-450) k/uL ABG pCO2 (35-45) mmHg ABG pO2 (83-108) mmHg ABG HCO3 (21-25) mmol/L ABG O2 Saturation (94-97) % Hemoglobin (13.0-17.5) gm/dL Chloride (98-107) mmol/L Carbon Dioxide (22-30) mmol/L BUN (9-20) mg/dL Creatinine (0.66-1.25) mg/dL Glucose (74-99) mg/dL POC Glucose (mg/dL) 248 H (70-110) mg/dL Calcium (8.4-10.2) mg/dL Phosphorus (2.5-4.5) mg/dL Total Protein (6.3-8.2) g/dL Albumin (3.5-5.0) g/dL Microbiology - Last 24 Hours (Table) 12/25/23 12:52 Blood Culture Gram Stain - Preliminary Blood Blood Culture - Preliminary Staphlyococcus [email or web address] Molecular ID 12/25/23 16:49 Gram Stain - Preliminary Sputum Sputum Culture - Preliminary Citrobacter freundii Pseudomonas aeruginosa Assessment and Plan Assessment: Impression: Acute hypoxic respiratory failure requiring intubation mechanical ventilation secondary to aspiration. Status post tracheostomy on 12/10/2023 patient continues to have a cavitary lesion/lung abscess involving the right upper lobe. Status post J-tube placement 11/16/2023, multiple complications since then related to the J-tube placement requiring multiple surgeries. Ongoing leak around the J-tube, surgery is addressing not planning any surgical intervention at this point, and for feeding recommending either trickle feeds or TPN both. Acute peritonitis secondary to above, secondary to small bowel perforation with abdominal contamination Septic shock secondary to above Paroxysmal atrial fibrillation Acute kidney injury requiring hemodialysis secondary to sepsis and septic shock, last hemodialysis was on the , apparently patient is not requiring hemodi alysis since then and nephrology planning to discontinue his dialysis catheter from the left groin Weight loss secondary to non-Hodgkin's lymphoma Acute aspiration pneumonia/right upper lobe lung abscess Acute aspiration during upper endoscopy most likely secondary to gastric outlet obstruction secondary to non-Hodgkin's lymphoma based on the pathology from stomach biopsies 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 Today the patient will go on pressure support of 8 and CPAP not quite ready to be extubated. Critical illness polyneuropathy Metabolic encephalopathy Malfunctioning of the J-tube Recommendation: Continue ventilatory support changes in his IMV mode of mechanical ventilation today he will remain on IMV and pressure support Continue Dilaudid and Precedex avoid propofol avoid benzodiazepines Hoping to eventually go back and use his jejunostomy tube for enteral feeding Continue antibiotics including daptomycin and Zosyn, Eraxis was added by infectious disease Close monitoring of daily labs, and monitor daily x-rays of the chest Continue GI and DVT prophylaxis Remains critically ill Prognosis is extremely poor and guarded Family updated on his condition again Critical care time is over 30 Will continue to follow Time with Patient: Greater than 30
[2023-12-28] MEDS: LIDOCAINE 1% INJ 10MG/ML (20 ML MDV) SQ ONE (11:52)
[2023-12-28 11:54] LABS: Glucose,Whole Blood 212 mg/dL (70-110)
[2023-12-28] MEDS: SODIUM CHLORIDE 0.45% 1,000 ML IV SCH (12:00)
--- NOTE | 2023-12-28 12:11 | P.PN ---
Subjective Progress Note Date: 12/28/23 Patient seen and examined at bedside. No acute events. Per family, dialysis catheter removed. Objective - Vital Signs Vital signs: Vital Signs Temp 98.2 F 12/28/23 04:00 Pulse 65 12/28/23 11:24 Resp 26 H 12/28/23 07:00 BP 145/87 12/28/23 07:00 Pulse Ox 98 12/28/23 07:00 FiO2 30 12/28/23 11:14 Intake & Output 12/27/23 12/28/23 12/28/23 18:59 06:59 18:59 Intake Total 981.465 919.077 80.923 Output Total 1000 725 60 Balance -18.535 194.077 20.923 Weight 100.6 kg 100.7 kg Intake: IV 650 650 50 0.9 KVO 650 550 50 Piperacillin-Tazobactam 3 100 .375 gm In Sodium Chloride 0.9% 100 ml @ 25 mls/hr IVPB Q12HR [facility] Rx #:[id number] Intake, IV Titration 331.465 269.077 30.923 Amount Dexmedetomidine/0.9% NaCl 71.465 269.077 30.923 (Pmx) 400 mcg In Empty Bag 1 bag @ 0.2 MCG/KG/HR 4.94 mls/hr IV .[id number] [facility] Rx#:[id number] Sodium Acetate 30 meq 260 Potassium Acetate 30 meq Magnesium Sulfate gm 1.5 gm Calcium Gluconate 1 gm In Amino Acids 5 %/ Dextrose 20 % 1,000 ml @ 65 mls/hr IV .BY DURATION [facility] Rx#:[id number] Output: Drainage 100 140 Right Abdomen 100 140 Urine 900 585 60 Other: Voiding Method Indwelling Catheter Indwelling Catheter ABP, PAP, CO, CI - Last Documented Arterial Blood Pressure 167/71 - Respiratory Details: Tolerating vent with tracheostomy - Gastrointestinal Gastrointestinal Comment(s): Soft, nontender, nondistended, wound VAC in place, J-tube in place with drainage around site - Musculoskeletal Musculoskeletal: Present: generalized weakness - Labs CBC & Chem 7: 12/28/23 05:20 12/28/23 05:20 Labs: Abnormal Lab Results - Last 24 Hours (Table) 12/27/23 12/27/23 12/27/23 Range/Units 12:49 17:39 23:25 RBC (4.30-5.90) m/uL Hgb (13.0-17.5) gm/dL Hct (39.0-53.0) % RDW (11.5-15.5) % Plt Count (150-450) k/uL ABG pCO2 (35-45) mmHg ABG pO2 (83-108) mmHg ABG HCO3 (21-25) mmol/L ABG O2 Saturation (94-97) % Hemoglobin (13.0-17.5) gm/dL Chloride (98-107) mmol/L Carbon Dioxide (22-30) mmol/L BUN (9-20) mg/dL Creatinine (0.66-1.25) mg/dL Glucose (74-99) mg/dL POC Glucose (mg/dL) 287 H 221 H 222 H (70-110) mg/dL Calcium (8.4-10.2) mg/dL Phosphorus (2.5-4.5) mg/dL Total Protein (6.3-8.2) g/dL Albumin (3.5-5.0) g/dL 12/28/23 12/28/23 12/28/23 Range/Units 05:07 05:20 05:20 RBC 2.65 L (4.30-5.90) m/uL Hgb 7.9 L (13.0-17.5) gm/dL Hct 24.1 L (39.0-53.0) % RDW 18.3 H (11.5-15.5) % Plt Count 73 L (150-450) k/uL ABG pCO2 31 L (35-45) mmHg ABG pO2 113 H (83-108) mmHg ABG HCO3 20 L (21-25) mmol/L ABG O2 Saturation 99.0 H (94-97) % Hemoglobin 7.8 L (13.0-17.5) gm/dL Chloride 122 H (98-107) mmol/L Carbon Dioxide 20 L (22-30) mmol/L BUN 45 H (9-20) mg/dL Creatinine 1.51 H (0.66-1.25) mg/dL Glucose 234 H (74-99) mg/dL POC Glucose (mg/dL) (70-110) mg/dL Calcium 6.8 L (8.4-10.2) mg/dL Phosphorus 2.4 L (2.5-4.5) mg/dL Total Protein 4.9 L (6.3-8.2) g/dL Albumin 1.7 L (3.5-5.0) g/dL 12/28/23 12/28/23 Range/Units 05:26 11:44 RBC (4.30-5.90) m/uL Hgb (13.0-17.5) gm/dL Hct (39.0-53.0) % RDW (11.5-15.5) % Plt Count (150-450) k/uL ABG pCO2 (35-45) mmHg ABG pO2 (83-108) mmHg ABG HCO3 (21-25) mmol/L ABG O2 Saturation (94-97) % Hemoglobin (13.0-17.5) gm/dL Chloride (98-107) mmol/L Carbon Dioxide (22-30) mmol/L BUN (9-20) mg/dL Creatinine (0.66-1.25) mg/dL Glucose (74-99) mg/dL POC Glucose (mg/dL) 248 H 212 H (70-110) mg/dL Calcium (8.4-10.2) mg/dL Phosphorus (2.5-4.5) mg/dL Total Protein (6.3-8.2) g/dL Albumin (3.5-5.0) g/dL Microbiology - Last 24 Hours (Table) 12/25/23 12:52 Blood Culture Gram Stain - Preliminary Blood Blood Culture - Preliminary Staphlyococcus pettenkoferi Molecular ID 12/25/23 16:49 Gram Stain - Preliminary Sputum Sputum Culture - Preliminary Citrobacter freundii Pseudomonas aeruginosa Assessment and Plan Plan: ASSESSMENT: 1. 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 Status post J-tube placement and revision for small bowel obstruction 2. Abdominal wound dehiscence status post wound VAC placement 3. Status post tracheostomy PLAN: -At this time no plan to exchange J-tube, this was discussed further with the family. Concern is for dilating the fistula tract and having excessive output. Continue to monitor. -Keep J-tube to drainage -Continue to hold tube feeds -Wound VAC scheduled to be changed today -Continue TPN for nutrition support -Continue zinc barrier cream around J-tube
--- NOTE | 2023-12-28 13:24 | P.PN ---
Subjective Progress Note Date: 12/28/23 Principal diagnosis: Reason for follow-up is pneumonia and bacteremia Patient is 73-year-old with male initial presentation to the hospital on 11/11/2021 for after the patient did have aspiration while undergoing elective endoscopy, diagnosed with a non-Hodgkin of, subsequently did have explained laparotomy for perforated small bowel abdominal washout and feeding jejunostomy tube patient did require dialysis catheter placement for dialysis during this hospital stay and tracheostomy for respiratory failure, infectious was consulted for fever. On today's evaluation that is 12/28/2023, the patient continues to be afebrile, the patient is on the ventilator through the trach FiO2 is currently stable at 30% no significant pleural effusion clinically patient on requiring any pressor support still having drainage around his jejunostomy tube patient dialysis catheter has been discontinued. Patient white count normalized to 7.6, creatinine is 1.51 Objective - Vital Signs Vital signs: Vital Signs Temp 98.2 F 12/28/23 04:00 Pulse 65 12/28/23 11:24 Resp 26 H 12/28/23 07:00 BP 145/87 12/28/23 07:00 Pulse Ox 98 12/28/23 07:00 FiO2 30 12/28/23 11:14 Intake & Output 12/27/23 12/28/23 12/28/23 18:59 06:59 18:59 Intake Total 981.465 919.077 80.923 Output Total 1000 725 60 Balance -18.535 194.077 20.923 Weight 100.6 kg 100.7 kg Intake: IV 650 650 50 0.9 KVO 650 550 50 Piperacillin-Tazobactam 3 100 .375 gm In Sodium Chloride 0.9% 100 ml @ 25 mls/hr IVPB Q12HR [facility] Rx #:[id number] Intake, IV Titration 331.465 269.077 30.923 Amount Dexmedetomidine/0.9% NaCl 71.465 269.077 30.923 (Pmx) 400 mcg In Empty Bag 1 bag @ 0.2 MCG/KG/HR 4.94 mls/hr IV .[id number] [facility] Rx#:[id number] Sodium Acetate 30 meq 260 Potassium Acetate 30 meq Magnesium Sulfate gm 1.5 gm Calcium Gluconate 1 gm In Amino Acids 5 %/ Dextrose 20 % 1,000 ml @ 65 mls/hr IV .BY DURATION [facility] Rx#:[id number] Output: Drainage 100 140 Right Abdomen 100 140 Urine 900 585 60 Other: Voiding Method Indwelling Catheter Indwelling Catheter ABP, PAP, CO, CI - Last Documented Arterial Blood Pressure 167/71 - Exam GENERAL DESCRIPTION: An elderly male lying in bed in no distress RESPIRATORY SYSTEM: Unlabored breathing , decreased breath sounds at bases HEART: S1 S2 regular rate and rhythm , ABDOMEN: Soft , no tenderness EXTREMITIES: No edema feet - Labs CBC & Chem 7: 12/28/23 05:20 12/28/23 05:20 Labs: Abnormal Lab Results - Last 24 Hours (Table) 12/27/23 12/27/23 12/28/23 Range/Units 17:39 23:25 05:07 RBC (4.30-5.90) m/uL Hgb (13.0-17.5) gm/dL Hct (39.0-53.0) % RDW (11.5-15.5) % Plt Count (150-450) k/uL ABG pCO2 31 L (35-45) mmHg ABG pO2 113 H (83-108) mmHg ABG HCO3 20 L (21-25) mmol/L ABG O2 Saturation 99.0 H (94-97) % Hemoglobin 7.8 L (13.0-17.5) gm/dL Chloride (98-107) mmol/L Carbon Dioxide (22-30) mmol/L BUN (9-20) mg/dL Creatinine (0.66-1.25) mg/dL Glucose (74-99) mg/dL POC Glucose (mg/dL) 221 H 222 H (70-110) mg/dL Calcium (8.4-10.2) mg/dL Phosphorus (2.5-4.5) mg/dL Total Protein (6.3-8.2) g/dL Albumin (3.5-5.0) g/dL 12/28/23 12/28/23 12/28/23 Range/Units 05:20 05:20 05:26 RBC 2.65 L (4.30-5.90) m/uL Hgb 7.9 L (13.0-17.5) gm/dL Hct 24.1 L (39.0-53.0) % RDW 18.3 H (11.5-15.5) % Plt Count 73 L (150-450) k/uL ABG pCO2 (35-45) mmHg ABG pO2 (83-108) mmHg ABG HCO3 (21-25) mmol/L ABG O2 Saturation (94-97) % Hemoglobin (13.0-17.5) gm/dL Chloride 122 H (98-107) mmol/L Carbon Dioxide 20 L (22-30) mmol/L BUN 45 H (9-20) mg/dL Creatinine 1.51 H (0.66-1.25) mg/dL Glucose 234 H (74-99) mg/dL POC Glucose (mg/dL) 248 H (70-110) mg/dL Calcium 6.8 L (8.4-10.2) mg/dL Phosphorus 2.4 L (2.5-4.5) mg/dL Total Protein 4.9 L (6.3-8.2) g/dL Albumin 1.7 L (3.5-5.0) g/dL 12/28/23 Range/Units 11:44 RBC (4.30-5.90) m/uL Hgb (13.0-17.5) gm/dL Hct (39.0-53.0) % RDW (11.5-15.5) % Plt Count (150-450) k/uL ABG pCO2 (35-45) mmHg ABG pO2 (83-108) mmHg ABG HCO3 (21-25) mmol/L ABG O2 Saturation (94-97) % Hemoglobin (13.0-17.5) gm/dL Chloride (98-107) mmol/L Carbon Dioxide (22-30) mmol/L BUN (9-20) mg/dL Creatinine (0.66-1.25) mg/dL Glucose (74-99) mg/dL POC Glucose (mg/dL) 212 H (70-110) mg/dL Calcium (8.4-10.2) mg/dL Phosphorus (2.5-4.5) mg/dL Total Protein (6.3-8.2) g/dL Albumin (3.5-5.0) g/dL Microbiology - Last 24 Hours (Table) 12/25/23 12:52 Blood Culture Gram Stain - Preliminary Blood Blood Culture - Preliminary Staphlyococcus petevaferi Molecular ID 12/25/23 16:49 Gram Stain - Preliminary Sputum Sputum Culture - Preliminary Citrobacter freundii Pseudomonas aeruginosa Assessment and Plan (1) Sepsis Current Visit: Yes Status: Acute Code(s): A41.9 - SEPSIS, UNSPECIFIED ORGANISM SNOMED Code(s): 65883311 (2) Pneumonia Current Visit: Yes Status: Acute Code(s): J18.9 - PNEUMONIA, UNSPECIFIED ORGANISM SNOMED Code(s): 563022319 (3) Bacteremia Current Visit: Yes Status: Acute Code(s): R78.81 - BACTEREMIA SNOMED Code(s): 7444175 Plan: 1patient with pneumonia with a sputum showing Citrobacter and Pseudomonas aeruginosa, the patient sputum repeat is still growing Citrobacter and Pseudomonas sensitive to the Pseudomonas is pending continue with Zosyn 2-patient did have a positive blood culture with staph epi that was oxacillin resistant as the patient did have a PICC line and the dialysis catheter he is on daptomycin repeat blood culture currently growing oxacillin sensitive staph epi, the patient dialysis catheter has been discontinued Has been sent for the culture 3-patient also have significant excoriation around his jejunostomy tube site which is still leaking Eraxis was added which will be continued as the patient fever pattern has improved and the patient white count has normalized once again discussed with the nursing staff to apply Triad cream which was discussed yesterday but not applied and monitor clinical course closely at the bedside questions answered Dictation was produced using [employer] dictation software. please excuse any grammatical, word or spelling errors. Time with Patient: Less than 30
[2023-12-28] MEDS: HYDROPHILIC CREAM 180 GM TUBE TOPICAL SCH (15:32)
[2023-12-28 17:07] LABS: Glucose,Whole Blood 228 mg/dL (70-110)
[2023-12-28 23:53] LABS: Glucose,Whole Blood 205 mg/dL (70-110)
[2023-12-29 05:26] LABS: ABG Base Excess -2.5 mmol/L; ABG HCO3 21 mmol/L (21-25); ABG Oxygen Saturation 98.9 % (94-97); ABG PCO2 31 mmHg (35-45); ABG PH 7.45 (7.35-7.45); ABG PO2 105 mmHg (83-108); ABG TCO2 22 mmol/L (19-24); Allen Test Performed? Yes
[2023-12-29 05:31] LABS: Anisocytosis Slight; Basophils % (A) 0 %; Eosinophils % (A) 1 %; HCT 23.5 % (39.0-53.0); HGB 7.4 gm/dL (13.0-17.5); Hypochromasia Slight; Lymphocytes # (A) 2.1 k/uL (1.0-4.8); Lymphocytes % (A) 27 %; MCH 28.6 pg (25.0-35.0); MCHC 31.5 g/dL (31.0-37.0); MCV 90.9 fL (80.0-100.0); Mean Platelet Volume 9.7; Monocytes # (A) 0.3 k/uL (0-1.0); Monocytes % (A) 4 %; Neutrophils # (A) 5.2 k/uL (1.3-7.7); Neutrophils % (A) 67 %; RBC 2.59 m/uL (4.30-5.90); RDW 18.1 % (11.5-15.5); WBC 7.7 k/uL (3.8-10.6)
[2023-12-29 05:32] LABS: Platelet Count 71 k/uL (150-450)
[2023-12-29 05:35] LABS: Glucose,Whole Blood 197 mg/dL (70-110)
[2023-12-29 05:37] LABS: ALT 28 U/L (4-49); AST 26 U/L (17-59); African American GFR (CKD) 64 (>60 ml/min/1.73 sqM); Albumin 1.7 g/dL (3.5-5.0); Alkaline Phosphatase 94 U/L (38-126); Anion Gap 0 mmol/L; Blood Urea Nitrogen 43 mg/dL (9-20); Calcium 6.9 mg/dL (8.4-10.2); Carbon Dioxide 21 mmol/L (22-30); Chloride 122 mmol/L (98-107); Glucose 207 mg/dL (74-99); Magnesium 2.1 mg/dL (1.6-2.3); Non-African American GFR(CKD) 55 (>60 ml/min/1.73 sqM); Phosphorus 1.7 mg/dL (2.5-4.5); Potassium 3.9 mmol/L (3.5-5.1); Sodium 143 mmol/L (137-145); Total Bilirubin 1.5 mg/dL (0.2-1.3); Total Protein 4.8 g/dL (6.3-8.2)
[2023-12-29] MEDS: POTASSIUM CHLORIDE 10 MEQ in WATER FOR INJECTION 1 100ML.BAG IVPB SCH (06:38)
--- NOTE | 2023-12-29 07:33 | XR ---
EXAMINATION TYPE: XR chest 1V portable DATE OF EXAM: 12/29/2023 Comparison: 12/28/2023 Clinical History: 73-year-old male ICU follow-up, tracheostomy Findings: Tracheostomy cannula in place. Right anterior chest wall injection port with catheter tip probably in the region of the inferior cavoatrial junction level in the right atrium. Left PICC tip at the super ior cavoatrial junction. Heart borderline in size. There is a moderate right pleural effusion with pa tchy pleural-parenchymal opacities throughout the right hemithorax which is similar. Some patchy opac ity left mid and lower lung similar to slightly improved from prior. Semiupright exam. Impression: 1. Semiupright exam with similar pleural parenchymal opacities throughout the right hemithorax, suspe ct at least a moderate pleural effusion with areas of atelectasis and/or consolidation. 2. Some patchy opacity left mid and lower lung shows slight improvement. [facility], , 12/29/2023 7:31 AM
[2023-12-29] MEDS: POTASSIUM PHOSPHATE 10 MMOL in SODIUM CHLORIDE 0.9% 250 ML IV ONE (09:37)
--- NOTE | 2023-12-29 09:39 | P.PN ---
Subjective Patient is seen in follow-up for acute kidney injury. Patient underwent exploratory laparotomy with small bowel obstruction NG tube replacement Sep tem2023. Nonoliguric. Started on hemodialysis November 29, 2023. Last dialysis December 18, 2023. Status post tracheostomy December 10, 2023. Renal function continues to improve. Tube feeds currently held. Receiving TPN. Last received unit of blood December 26, 2023. Off Levophed. Vital signs stable. General: Resting in bed. HEENT: Tracheostomy noted. LUNGS: Scattered rhonchi. HEART: Regular rate and rhythm. ABDOMEN: No drainage. EXTREMITITES: 1+ edema. Objective - Vital Signs Vital signs: Vital Signs Temp 98.5 F 12/29/23 04:00 Pulse 65 12/29/23 07:39 Resp 27 H 12/29/23 07:00 BP 128/80 12/29/23 07:00 Pulse Ox 98 12/29/23 07:00 FiO2 30 12/29/23 07:31 Intake & Output 12/28/23 12/29/23 12/29/23 18:59 06:59 18:59 Intake Total 1261.711 900.000 50 Output Total 1060 955 60 Balance 201.711 -55.000 -10 Weight 101.5 kg Intake: IV 600 600 50 0.45 600 300 50 Piperacillin-Tazobactam 3 100 .375 gm In Sodium Chloride 0.9% 100 ml @ 25 mls/hr IVPB Q12HR [facility] Rx #:[id number] Sodium Chloride 0.45% 1, 200 000 ml @ 50 mls/hr IV . Q20H [facility] Rx#:[id number] Intake, IV Titration 661.711 300.000 Amount Dexmedetomidine/0.9% NaCl 206.711 200.000 (Pmx) 400 mcg In Empty Bag 1 bag @ 0.2 MCG/KG/HR 4.94 mls/hr IV .[id number] [facility] Rx#:[id number] Sodium Acetate 30 meq 455 Potassium Acetate 30 meq Magnesium Sulfate gm 1 gm Calcium Gluconate 1 gm In Amino Acids 5 %/ Dextrose 20 % 1,000 ml @ 65 mls/hr IV .BY DURATION [facility] Rx#:[id number] Sodium Chloride 0.45% 1, 100 000 ml @ 50 mls/hr IV . Q20H [facility] Rx#:[id number] Output: Drainage 140 Right Abdomen 140 Urine 1060 815 60 Other: Voiding Method Indwelling Catheter Indwelling Catheter ABP, PAP, CO, CI - Last Documented Arterial Blood Pressure 172/73 - Labs CBC & Chem 7: 12/29/23 05:15 12/29/23 05:15 Labs: Abnormal Lab Results - Last 24 Hours (Table) 12/28/23 12/28/23 12/28/23 Range/Units 11:44 17:06 23:52 RBC (4.30-5.90) m/uL Hgb (13.0-17.5) gm/dL Hct (39.0-53.0) % RDW (11.5-15.5) % Plt Count (150-450) k/uL ABG pCO2 (35-45) mmHg ABG O2 Saturation (94-97) % Hemoglobin (13.0-17.5) gm/dL Chloride (98-107) mmol/L Carbon Dioxide (22-30) mmol/L BUN (9-20) mg/dL Creatinine (0.66-1.25) mg/dL Glucose (74-99) mg/dL POC Glucose (mg/dL) 212 H 228 H 205 H (70-110) mg/dL Calcium (8.4-10.2) mg/dL Phosphorus (2.5-4.5) mg/dL Total Bilirubin (0.2-1.3) mg/dL Total Protein (6.3-8.2) g/dL Albumin (3.5-5.0) g/dL 12/29/23 12/29/23 12/29/23 Range/Units 05:15 05:15 05:21 RBC 2.59 L (4.30-5.90) m/uL Hgb 7.4 L (13.0-17.5) gm/dL Hct 23.5 L (39.0-53.0) % RDW 18.1 H (11.5-15.5) % Plt Count 71 L (150-450) k/uL ABG pCO2 31 L (35-45) mmHg ABG O2 Saturation 98.9 H (94-97) % Hemoglobin 7.6 L (13.0-17.5) gm/dL Chloride 122 H (98-107) mmol/L Carbon Dioxide 21 L (22-30) mmol/L BUN 43 H (9-20) mg/dL Creatinine 1.29 H (0.66-1.25) mg/dL Glucose 207 H (74-99) mg/dL POC Glucose (mg/dL) (70-110) mg/dL Calcium 6.9 L (8.4-10.2) mg/dL Phosphorus 1.7 L (2.5-4.5) mg/dL Total Bilirubin 1.5 H (0.2-1.3) mg/dL Total Protein 4.8 L (6.3-8.2) g/dL Albumin 1.7 L (3.5-5.0) g/dL 12/29/23 Range/Units 05:34 RBC (4.30-5.90) m/uL Hgb (13.0-17.5) gm/dL Hct (39.0-53.0) % RDW (11.5-15.5) % Plt Count (150-450) k/uL ABG pCO2 (35-45) mmHg ABG O2 Saturation (94-97) % Hemoglobin (13.0-17.5) gm/dL Chloride (98-107) mmol/L Carbon Dioxide (22-30) mmol/L BUN (9-20) mg/dL Creatinine (0.66-1.25) mg/dL Glucose (74-99) mg/dL POC Glucose (mg/dL) 197 H (70-110) mg/dL Calcium (8.4-10.2) mg/dL Phosphorus (2.5-4.5) mg/dL Total Bilirubin (0.2-1.3) mg/dL Total Protein (6.3-8.2) g/dL Albumin (3.5-5.0) g/dL Microbiology - Last 24 Hours (Table) 12/25/23 16:49 Gram Stain - Final Sputum Sputum Culture - Final Citrobacter freundii Pseudomonas aeruginosa 12/25/23 12:52 Blood Culture Gram Stain - Preliminary Blood Blood Culture - Preliminary Staphlyococcus pettenkoferi Molecular ID Assessment and Plan Plan: Assessment: 1. Acute kidney injury secondary to ATN secondary to septic shock. Creatinine 0.86 on admission and up to 5.38 dated November 29, 2023. Urine output improved, now nonoliguric. UA fairly benign. No hydronephrosis noted on imaging. Started on hemodialysis November 29, 2023 due to volume overload. Patient initially had a right femoral catheter placed which subsequently became occluded and a left tunneled femoral catheter was placed December 06, 2023. Renal function improving with creatinine improved to 1.29 today. 2. Perforated small bowel status post exploratory laparotomy with abdominal washout, small bowel resection and J-tube replacement November 25, 2023. 3. A-fib with RVR. s/p amiodarone drip. Also received digoxin this admission. 4. Recently diagnosed gastric B-cell lymphoma. 5. Septic shock. Likely abdominal source. On IV antibiotics. Blood culture positive for staph. The dialysis catheter is tunneled. Also potential source can be PICC line. 6. Hypocalcemia secondary to acute kidney injury. Replaced. Improved. 7. Metabolic acidosis secondary to acute kidney injury and partially from compensation for underlying respiratory alkalosis. Improved. 8. Volume overload. Improved with diuresis and ultrafiltration. 9. Status post tracheostomy December 10, 2023. 10. Anemia. Component of chronic illness and acute blood loss. Received blood transfusions and DDAVP this admission. On Aranesp. 11. Respiratory alkalosis. 12. Hypernatremia from lack of oral water intake. Status post D5W. Stable. Plan: Last dialysis December 18, 2023. No further need at this time. Dialysis catheter removed December 28, 2023. Receiving TPN. Maintain half-normal saline. Avoid nephrotoxins. Preserved EF noted on echocardiogram. Case discussed with family present at bedside. Maintain midodrine. Potassium and phosphorus being replaced.
--- NOTE | 2023-12-29 09:52 | P.PN ---
Subjective Progress Note Date: 12/29/23 Patient seen and examined at bedside. No acute events. Some decrease in drainage around jejunostomy tube Objective - Vital Signs Vital signs: Vital Signs Temp 98.5 F 12/29/23 04:00 Pulse 65 12/29/23 07:39 Resp 27 H 12/29/23 07:00 BP 128/80 12/29/23 07:00 Pulse Ox 98 12/29/23 07:00 FiO2 30 12/29/23 07:31 Intake & Output 12/28/23 12/29/23 12/29/23 18:59 06:59 18:59 Intake Total 1261.711 900.000 50 Output Total 1060 955 60 Balance 201.711 -55.000 -10 Weight 101.5 kg Intake: IV 600 600 50 0.45 600 300 50 Piperacillin-Tazobactam 3 100 .375 gm In Sodium Chloride 0.9% 100 ml @ 25 mls/hr IVPB Q12HR [facility] Rx #:[id number] Sodium Chloride 0.45% 1, 200 000 ml @ 50 mls/hr IV . Q20H [facility] Rx#:[id number] Intake, IV Titration 661.711 300.000 Amount Dexmedetomidine/0.9% NaCl 206.711 200.000 (Pmx) 400 mcg In Empty Bag 1 bag @ 0.2 MCG/KG/HR 4.94 mls/hr IV .[id number] [facility] Rx#:[id number] Sodium Acetate 30 meq 455 Potassium Acetate 30 meq Magnesium Sulfate gm 1 gm Calcium Gluconate 1 gm In Amino Acids 5 %/ Dextrose 20 % 1,000 ml @ 65 mls/hr IV .BY DURATION [facility] Rx#:[id number] Sodium Chloride 0.45% 1, 100 000 ml @ 50 mls/hr IV . Q20H [facility] Rx#:[id number] Output: Drainage 140 Right Abdomen 140 Urine 1060 815 60 Other: Voiding Method Indwelling Catheter Indwelling Catheter ABP, PAP, CO, CI - Last Documented Arterial Blood Pressure 172/73 - Constitutional General appearance: Present: no acute distress - Gastrointestinal Gastrointestinal Comment(s): Soft, nontender, nondistended, wound VAC in place, jejunostomy tube with some mild succus like drainage around - Labs CBC & Chem 7: 12/29/23 05:15 12/29/23 05:15 Labs: Abnormal Lab Results - Last 24 Hours (Table) 12/28/23 12/28/23 12/28/23 Range/Units 11:44 17:06 23:52 RBC (4.30-5.90) m/uL Hgb (13.0-17.5) gm/dL Hct (39.0-53.0) % RDW (11.5-15.5) % Plt Count (150-450) k/uL ABG pCO2 (35-45) mmHg ABG O2 Saturation (94-97) % Hemoglobin (13.0-17.5) gm/dL Chloride (98-107) mmol/L Carbon Dioxide (22-30) mmol/L BUN (9-20) mg/dL Creatinine (0.66-1.25) mg/dL Glucose (74-99) mg/dL POC Glucose (mg/dL) 212 H 228 H 205 H (70-110) mg/dL Calcium (8.4-10.2) mg/dL Phosphorus (2.5-4.5) mg/dL Total Bilirubin (0.2-1.3) mg/dL Total Protein (6.3-8.2) g/dL Albumin (3.5-5.0) g/dL 12/29/23 12/29/23 12/29/23 Range/Units 05:15 05:15 05:21 RBC 2.59 L (4.30-5.90) m/uL Hgb 7.4 L (13.0-17.5) gm/dL Hct 23.5 L (39.0-53.0) % RDW 18.1 H (11.5-15.5) % Plt Count 71 L (150-450) k/uL ABG pCO2 31 L (35-45) mmHg ABG O2 Saturation 98.9 H (94-97) % Hemoglobin 7.6 L (13.0-17.5) gm/dL Chloride 122 H (98-107) mmol/L Carbon Dioxide 21 L (22-30) mmol/L BUN 43 H (9-20) mg/dL Creatinine 1.29 H (0.66-1.25) mg/dL Glucose 207 H (74-99) mg/dL POC Glucose (mg/dL) (70-110) mg/dL Calcium 6.9 L (8.4-10.2) mg/dL Phosphorus 1.7 L (2.5-4.5) mg/dL Total Bilirubin 1.5 H (0.2-1.3) mg/dL Total Protein 4.8 L (6.3-8.2) g/dL Albumin 1.7 L (3.5-5.0) g/dL 12/29/23 Range/Units 05:34 RBC (4.30-5.90) m/uL Hgb (13.0-17.5) gm/dL Hct (39.0-53.0) % RDW (11.5-15.5) % Plt Count (150-450) k/uL ABG pCO2 (35-45) mmHg ABG O2 Saturation (94-97) % Hemoglobin (13.0-17.5) gm/dL Chloride (98-107) mmol/L Carbon Dioxide (22-30) mmol/L BUN (9-20) mg/dL Creatinine (0.66-1.25) mg/dL Glucose (74-99) mg/dL POC Glucose (mg/dL) 197 H (70-110) mg/dL Calcium (8.4-10.2) mg/dL Phosphorus (2.5-4.5) mg/dL Total Bilirubin (0.2-1.3) mg/dL Total Protein (6.3-8.2) g/dL Albumin (3.5-5.0) g/dL Microbiology - Last 24 Hours (Table) 12/25/23 16:49 Gram Stain - Final Sputum Sputum Culture - Final Citrobacter freundii Pseudomonas aeruginosa 12/25/23 12:52 Blood Culture Gram Stain - Preliminary Blood Blood Culture - Preliminary Staphlyococcus pettenkoferi Molecular ID Assessment and Plan Plan: ASSESSMENT: 1. 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 Status post J-tube placement and revision for small bowel obstruction 2. Abdominal wound dehiscence status post wound VAC placement 3. Status post tracheostomy PLAN: -At this time no plan to exchange J-tube, this was discussed further with the family. Concern is for dilating the fistula tract and having excessive output. Continue to monitor. Output has decreased over the past 2 days. -Keep J-tube to drainage -Continue to hold tube feeds -Wound VAC scheduled to be changed 1 day/Saturday/Saturday -Continue TPN for nutrition support -Continue zinc barrier cream around J-tube
[2023-12-29] MEDS: ALBUMIN HUMAN 25% 50 ML in EMPTY BAG 1 BAG IVPB SCH (09:56)
[2023-12-29] MEDS: FUROSEMIDE 10 MG/ML 2 ML VIAL IV ONE (11:15)
--- NOTE | 2023-12-29 11:51 | P.PN ---
Subjective Progress Note Date: 12/29/23 Principal diagnosis: Acute hypoxic respiratory failure requiring intubation mechanical ventilation secondary to aspiration. This is a 73-year-old white male with history of chronic abdominal pain for the last 8 months has been treated with Protonix 40 mg daily for the last 3 months with no improvement. Patient had a 22 pound weight loss in the last [address] of the abdomen and pelvis 3 weeks ago showed thickening of the antral wall with pathological adenopathy posterior to the stomach suspicious of neoplasm. Today the patient underwent elective upper endoscopy to evaluate further, patient received IV sedation by anesthesia endoscope was inserted into the mouth, esop hagus was intubated without any difficulty there was evidence of large amount of liquid and solid food noted in the stomach suggestive of gastric outlet obstruction. Scope could not be advanced through the pylorus, however in the prepyloric area there was a large superficial ulceration identified with multiple biopsies were done from this area. The body cardia and fundus could not adequately visualize because of large amount of retained food in the stomach. Scope was withdrawn back to the stomach and upon careful examination the mucosa of the antrum body and cardia as well as the fundus appeared normal. Procedure was being performed and biopsies were done patient threw up and subsequently became hypoxic there was clearly evidence of witnessed aspiration anesthesia intubated the patient, procedure was terminated, and the patient was transferred to the ICU, this consult was initiated. Patient is now on assist- control rate of 20 tidal volume 500 FiO2 70% PEEP of 10 ABG is pending, earlier ABG showed profound hypoxia patient is on propofol at 50 mcg/kg/min, next ABG is pending. Chest x-ray showed chronic changes without evidence of acute pulmonary disease. 12/20/2023, the patient is being seen for a follow-up. More alert and awake compared to yesterday. He is able to move his fingers and toes on today's evaluation. Following commands. Nevertheless, his J tube has been clogged and was unable to utilize the tube that has been some leaks around the tube. No abdominal distention. No nausea or emesis. Hemodynamically stable. Will undergo hemodialysis today. He remains on pressure control mode of mechanical ventilation at rate of 16, pressure of 10, +5 PEEP with an FiO2 of 30%. Chest x-ray from today is essentially unchanged with a stable cavity in his right uppe r lobe. White cell count of 15.7, hemoglobin 7.2, platelet count is 203, blood gas showed a pH of 7.49 with a pCO2 of 33 and pO2 of 73. BUN is 88 with a creatinine 1.89 and sodium is at 141 with a potassium level of 4.1. He is producing adequate amount of urine output. Fluid balance has been -900 cc over the past 24 hours. Normotensive. Remains on a combination of Zosyn and daptomycin. Remains on Levemir insulin 24 units daily. This is currently on hold as the patient has not been able to obtain enteral feeding. Wound VAC still in place. 12/21/2023, the patient remains on the mechanical ventilator. Overnight, the patient experienced discomfort in his abdomen and he was restless. Based on that, the patient was placed on a higher dose of Precedex which is currently running at 0.6 mcg/kg/h. The patient was also asynchronous with the mechanical ventilator and based on that, the patient was switched to an AC mode and currently is at a rate of 16, tidal volume of 400, FiO2 of 30% with a PEEP of 5. The patient is adequately sedated for now. Chest x-ray remains unchanged. Tra cheostomy tube in place and the patient is having increased amount of respiratory secretions. J tube needs to be replaced today and this will be done by his general surgery as the tube remains clogged. Urine output is low order of 30 cc an hour. Afebrile. Remains on Zosyn and daptomycin. White cell count is 16.9, hemoglobin 7.4 and a platelet count of 280. Blood gas from today showed a pH of 7.46 with a pCO2 of 36 and pO2 of 82. Sodium levels of 144, BUN is 19 with a creatinine of 2.2 and a serum bicarb is at 23. The abdominal wound remains unchanged. RAYA drain is serosanguineous. 12/22/2023, patient remains on Precedex at 0.4 mcg/kg/min. Arousable. Communicates. Profoundly weak. Remains on the mechanical ventilator with a right lung abscess. SIMV mode mode rate of 16, tidal volume of 400, FiO2 30% with a PEEP of 5, with a pressure support of 8. Blood gas showed a pH of 7.46 with a pCO2 of 32 and a pO2 of 82. Chest x-ray remains unchanged with a right upper lobe cavitating lesion/opacity and a suspected lung abscess. This is rated Pseudomonas and the patient remains on IV Zosyn. He remains on daptomycin. Urine output is in order of 50 cc an hour.. The J-tube was unplugged yesterday. Nevertheless, the tube itself is malfunctioning and there is drainage around the tube requiring dressing changes the dressings being soakedConstantly. The patient's white cell count is 12.3 with a hemoglobin 7.7. Sodium is at 149, BUN 91 with a creatinine of 2.3. Bicarb is at 20. Undergoing hemodialysis periodically. Last hemodialysis was on 12/21/2023. Currently NPO. Abdominal wound is clean and the patient has a wound VAC in place. RAYA drain output is serosanguineous. Patient was seen today on 12/23/2023, remains in the ICU, intubated and mechanically ventilated. Patient is on IMV with pressure support/IMV 16, pressure support of 8, tidal volume 400, PEEP of 5. Patient seems to be doing well with that kind of mode of mechanical ventilation, ABG showed a pO2 of 76 pCO2 28 pH of 7.50. I changed his rate from 16-8 kept him otherwise on the same ventilator settings. Plan to gradually go down on the IMV rate until we can get him on pressure support of 8 and CPAP. Patient is requiring Precedex at 0.4 mcg/kg/h, he is on D5W at 50 cc/h. Remains on antibiotics in the form of daptomycin and Zosyn, chest x-ray continues to show bilateral airspace disease and right upper lobe lung abscess. Continues to have a bit of a leak from his J-tube being addressed by surgery has a wound VAC, and he had a RAYA drain. Mentation arce the patient is a bit more appropriate, opens his eyes, follows very simple instructions, seems to comprehend. Patient has a left brachial PICC line, he also has a left groin hemodialysis catheter. WBC count is 10.1 hemoglobin is 7 sodium is 149 potassium 4 chloride is 121 BUN is 86 creatinine 2.31. Blood sugar is 173. Remains on enteral feeding via J-tube, a bit of a leak is noted, and surgery is to address this. Sputum cultures have grown Klebsiella and Pseudomonas and remains on proper antibiotics Patient was seen and examined today on 12/24/2023, patient remains in the ICU, and mechanically ventilated. On IMV mode of 8 pressure support of 8 tidal volume 400 FiO2 30% and PEEP of 5 ABG showed a pO2 of 81 pCO2 32 pH of 7.45. Patient remains on daptomycin and Zosyn, remains on Precedex at 0.4 mcg/kg/h intermittently receiving Dilaudid for pain. Feeding arce is presently on hold, patient had a leak around the jejunostomy tube, surgery is recommending a trickle feed or TPN if could not use the J-tube. Patient is arousable follows simple instructions, and today I had a chance to get rid of the IMV mode, and I am recommending a pressure support of 8 and CPAP. For the last few hours the patient has been tolerating this mode of mechanical ventilation, however he is not quite ready to go to [facility] at this point. Chest x-ray continues to show significant opacity in the right upper lobe and airspace disease in the right lower lobe. Previously patient had a CT of the chest showing right upper lobe abscess. Again he remains on Zosyn and daptomycin.Labs today showed WBC count of 10.6 hemoglobin 7.8 sodium is 147, patient is now on D5W at 100 cc an hour his bicarb is 19 BUN 74 creatinine 2.08, gradually improving, his last hemodialysis was on the , nephrology is considering removing his dialysis catheter in the left groin and I believe that is appropriate patient was seen and examined today on 12/25/2023, remains in the ICU, intubated and mechanically ventilated. Patient had to be placed back on assist-control mode of mechanical ventilation yesterday, mostly because he developed s ignificant agitation and restlessness, and ongoing persistent cough with some air leak from the cough of that tracheostomy. Patient had to be sedated and he was placed on propofol and he remains on propofol at 50 mcg/kg/min. Maximal dose of Precedex yesterday could not calm him down, hence we had to transition him from pressure support/CPAP mode of mechanical ventilation to assist-control mode of mechanical ventilation and fully sedated him with propofol replacing Precedex. Today the patient is sedated, he is on assist-control rate of 16 tidal volume 400 FiO2 30% PEEP of 5 ABG showed a pO2 of 98 pCO2 30 pH of 7.45 chest x-ray is basically the same showing significant airspace disease in the right upper lobe and right lower lobe. Remains on daptomycin and Zosyn. His IV fluid was transitioned to D5 4 5 from D5W sodium today is 141. His urine output is about 40 to 50 cc/h, renal profile is improving with steady trending of creatinine down. Patient continues to have leakage around the jejunostomy tube. Patient is being followed by surgery no specific recommendation made except to continue the same and except the leak as it isLabs today showed WBC count of 11.5 hemoglobin 8.2 basic metabolic profile is normal BUN is 60 creatinine down to 1.81 Patient seen today on 12/26/2023, remains in the ICU intubated mechanically ventilated sedated patient is on assist-control rate of 16 tidal volume 400 FiO2 30% PEEP of 5 ABG showed a pO2 of 82 pCO2 34 pH of 7.43. Patient is now on TPN at 30 cc/h propofol at 50 mcg/kg/min hemoglobin is down to 6.8 today and he is receiving a unit of packed RBCs. His IV fluids at 50 cc/h in the form of 0.9 normal saline. He was last night on a small dose of norepinephrine at 0.01 mcg/kg/min and is presently on hold. Antibiotics arce patient is on Zosyn daptomycin and Eraxis. Chest x-ray continues to show significant airspace disease involving the right upper lobe and right lower lobe not much of a change noted on the chest x-ray. Clinically the patient is about the same, today I plan to discontinue propofol, arrange for the patient to go on Precedex, and assess mental status off sedation. If tolerated, may transition the patient a gain to pressure support and CPAP type of mechanical ventilation, but he is not ready to go to that transition yet. WBC count is 11.6 hemoglobin 6.8. ABG today showed a pO2 of 82 pCO2 34 pH of 7.43 potassium is 3.3 being addressed accordingly BUN is 53 creatinine 1.84 Patient was evaluated today on 12/27/2023, remains in the ICU intubated and mechanically ventilated. Patient is presently on IMV mode of mechanical ventilation with pressure support rate of 16 pressure support 14 tidal volume 400 FiO2 30% and PEEP of 5 ABG showed a pO2 of 99 pCO2 31 pH of 7.44. Intermittently the patient has been experiencing episodes of extreme agitation and restlessness he is on Precedex at 0.5 mcg/kg/h. Patient is on IV fluid 0.9 normal saline at 50 cc/h and is also receiving TPN. Remains on Eraxis daptomycin and Zosyn patient is intermittently requiring Dilaudid, Ativan does not seem to help his agitation and restlessness. But Dilaudid does hence I would recommend 0.5 mg every 2-3 hours as needed for agitation. Patient has good urine output roughly about 100 cc/h. Continues to have leakage around the jejunostomy tube, and patient is undergoing the J-tube exchange today. Family is at bedside, seems to be quite anxious about his overall condition, and I explained to the that we are doing the best we can considering his critical illness situation and critical illness polyneuropathy. Patient is profoundly weak, and weaning the patient from mechanical ventilation is almost impossible. At least not at this point yet WBC count is 10.9 hemoglobin is 8.1 basic metabolic profile is normal BUN is 46 creatinine 1.90 patient has been off hemodialysis since the . Chest x-ray continues to show stable findings with right upper lobe opacity and right lower lobe opacity and possibly a small right-sided pleural effusion Was evaluated today on 12/28/2023, patient remains in the ICU, intubated and mechanically ventilated, on IMV mode of mechanical ventilation rate set at 16 he is on pressure support of 14 tidal volume 400 FiO2 30% and PEEP of 5 ABG showed a pO2 of 113 pCO2 31 pH of 7.43. No major events overnight, patient is still requiring Precedex at 0.7 mcg/kg/h. He is on TPN as we could not use his jejunostomy tube, no jejunostomy tube was done yesterday, IV fluid is 0.9 at 50 cc/h remains on TPN at 65 cc/h patient is on Eraxis daptomycin and Zosyn. Chest x-ray is showing improvement in his right upper lobe airspace disease/lung abscess and there is a slight improvement in his right lower lobe opacity. Patient is arousable but does not follow any instructions, patient gets agitated easily if aroused and he started gagging on the tracheostomy tube. Family is at bedside, again updated on his condition. WBC count is 7.6 hemoglobin 7.9. Basic metabolic profile is normal BUN is 45 creatinine down to 1.51 patient has not had any dialysis since 12/17, his renal functioning and urine output continues to improve, hence I am strongly recommending removing his dialysis catheter Patient was seen on 12/29/2023, remains intubated and mechanically ventilated, in the ICU, on IMV of 16 tidal volume 400 FiO2 30% PEEP of 5 ABG showed a pO2 of 105 pCO2 31 pH of 7.45. Remains on Precedex at 0.8 mcg/kg/h, remains on TPN at 65 cc/h IV fluid 0.45 at 50 mL/h remains on multiple antibiotics and antifungal including Eraxis daptomycin and Zosyn. His hemodialysis catheter has been removed, urine output has been excellent renal functioning is improving chest x-ray is showing improvement in his right upper lobe airspace disease/pulmonary abscess. Right lower lobe seems about the same with chronic opacity and possibly some small right-sided pleural effusion. Family is at bedside, patient is arousable but does not follow any instructions. Gets extremely restless and agitated easily hence patient is receiving Dilaudid which seems to be working much better for this patient than benzodiazepines. And we are trying to avoid Ativan, trying to avoid any propofol as much as possible. I believe his drainage from the jejunostomy tube is becoming less and less, hence we could start considering early next week arrangement to possibly transfer the patient to a select care specialty. In the meantime I am recommending that we go down on the IMV rate by 2 every 2 hours the goal is pressure support of 14 and IMV of 8. Objective - Vital Signs Vital signs: Vital Signs Temp 98.0 F 12/29/23 08:00 Pulse 63 12/29/23 11:16 Resp 25 H 12/29/23 11:00 BP 126/82 12/29/23 11:00 Pulse Ox 99 12/29/23 11:00 FiO2 30 12/29/23 11:09 Intake & Output 12/28/23 12/29/23 12/29/23 18:59 06:59 18:59 Intake Total 1261.711 239.687 9366.908 Output Total 1060 955 600 Balance 201.711 -55.000 449.908 Weight 101.5 kg Intake: IV 600 600 600 0.45 600 300 250 Piperacillin-Tazobactam 3 100 100 .375 gm In Sodium Chloride 0.9% 100 ml @ 25 mls/hr IVPB Q12HR [facility] Rx #:[id number] Potassium Phosphate 10 250 mmol In Sodium Chloride 0 .9% 250 ml @ 125 mls/hr IV ONCE ONE Rx#:[id number] Sodium Chloride 0.45% 1, 200 000 ml @ 50 mls/hr IV . Q20H [facility] Rx#:[id number] Intake, IV Titration 661.711 300.000 89.908 Amount Dexmedetomidine/0.9% NaCl 206.711 200.000 89.908 (Pmx) 400 mcg In Empty Bag 1 bag @ 0.2 MCG/KG/HR 4.94 mls/hr IV .[id number] [facility] Rx#:[id number] Sodium Acetate 30 meq 455 Potassium Acetate 30 meq Magnesium Sulfate gm 1 gm Calcium Gluconate 1 gm In Amino Acids 5 %/ Dextrose 20 % 1,000 ml @ 65 mls/hr IV .BY DURATION [facility] Rx#:[id number] Sodium Chloride 0.45% 1, 100 000 ml @ 50 mls/hr IV . Q20H [facility] Rx#:[id number] TPN/PPN 260 TPN 260 Albumin 100 Albumin Human 25% 50 ml 100 In Empty Bag 1 bag @ 50 mls/hr IVPB Q1H [facility] Rx#: [id number] Output: Gastric Drainage 65 Drainage 140 Right Abdomen 140 Urine 1060 815 535 Other: Voiding Method Indwelling Catheter Indwelling Catheter Indwelling Catheter ABP, PAP, CO, CI - Last Documented Arterial Blood Pressure 172/72 - Exam General: Revealed 73-year-old white male on mechanical ventilation, on Precedex, Skin: Skin is warm and dry and no rashes or lesions are noted. Eye: Pupils are equal, round and reactive to light, extra-ocular movements are intact; there is normal conjunctiva bilaterally. Ears, nose, mouth and throat: There are moist mucous membranes and no oral les ions. Neck: The neck is supple, there is no tenderness or JVD. Tracheostomy is intact. No air leak noted today Cardiovascular: There is a regular rate and rhythm. No murmur, rub or gallop is appreciated. Respiratory: Crackles at the bases, no rhonchi no wheezes Gastrointestinal: no rebound, no guarding, no bowel sounds, positive leak noted around the jejunostomy tube, seems to be less today compared to the last few days Musculoskeletal: No deformities and no limitation range of motion other the patient seems to be generally weak. 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 Neurological: Patient is arousable does not follow any instructions today. Extremities: 1+ bipedal edema - Labs CBC & Chem 7: 12/29/23 05:15 12/29/23 05:15 Labs: Abnormal Lab Results - Last 24 Hours (Table) 12/28/23 12/28/23 12/28/23 Range/Units 11:44 17:06 23:52 RBC (4.30-5.90) m/uL Hgb (13.0-17.5) gm/dL Hct (39.0-53.0) % RDW (11.5-15.5) % Plt Count (150-450) k/uL ABG pCO2 (35-45) mmHg ABG O2 Saturation (94-97) % Hemoglobin (13.0-17.5) gm/dL Chloride (98-107) mmol/L Carbon Dioxide (22-30) mmol/L BUN (9-20) mg/dL Creatinine (0.66-1.25) mg/dL Glucose (74-99) mg/dL POC Glucose (mg/dL) 212 H 228 H 205 H (70-110) mg/dL Calcium (8.4-10.2) mg/dL Phosphorus (2.5-4.5) mg/dL Total Bilirubin (0.2-1.3) mg/dL Total Protein (6.3-8.2) g/dL Albumin (3.5-5.0) g/dL 12/29/23 12/29/23 12/29/23 Range/Units 05:15 05:15 05:21 RBC 2.59 L (4.30-5.90) m/uL Hgb 7.4 L (13.0-17.5) gm/dL Hct 23.5 L (39.0-53.0) % RDW 18.1 H (11.5-15.5) % Plt Count 71 L (150-450) k/uL ABG pCO2 31 L (35-45) mmHg ABG O2 Saturation 98.9 H (94-97) % Hemoglobin 7.6 L (13.0-17.5) gm/dL Chloride 122 H (98-107) mmol/L Carbon Dioxide 21 L (22-30) mmol/L BUN 43 H (9-20) mg/dL Creatinine 1.29 H (0.66-1.25) mg/dL Glucose 207 H (74-99) mg/dL POC Glucose (mg/dL) (70-110) mg/dL Calcium 6.9 L (8.4-10.2) mg/dL Phosphorus 1.7 L (2.5-4.5) mg/dL Total Bilirubin 1.5 H (0.2-1.3) mg/dL Total Protein 4.8 L (6.3-8.2) g/dL Albumin 1.7 L (3.5-5.0) g/dL 12/29/23 Range/Units 05:34 RBC (4.30-5.90) m/uL Hgb (13.0-17.5) gm/dL Hct (39.0-53.0) % RDW (11.5-15.5) % Plt Count (150-450) k/uL ABG pCO2 (35-45) mmHg ABG O2 Saturation (94-97) % Hemoglobin (13.0-17.5) gm/dL Chloride (98-107) mmol/L Carbon Dioxide (22-30) mmol/L BUN (9-20) mg/dL Creatinine (0.66-1.25) mg/dL Glucose (74-99) mg/dL POC Glucose (mg/dL) 197 H (70-110) mg/dL Calcium (8.4-10.2) mg/dL Phosphorus (2.5-4.5) mg/dL Total Bilirubin (0.2-1.3) mg/dL Total Protein (6.3-8.2) g/dL Albumin (3.5-5.0) g/dL Microbiology - Last 24 Hours (Table) 12/25/23 12:52 Blood Culture Gram Stain - Final Blood Blood Culture - Final Staphlyococcus pettenkoferi Molecular ID 12/25/23 16:49 Gram Stain - Final Sputum Sputum Culture - Final Citrobacter freundii Pseudomonas aeruginosa Assessment and Plan Assessment: Impression: Acute hypoxic respiratory failure requiring intubation mechanical ventilation secondary to aspiration. Status post tracheostomy on 12/10/2023 patient continues to have a cavitary lesion/lung abscess involving the right upper lobe. Improving based on chest x-ray today compared to previous x-rays of the chest Status post J-tube placement 11/16/2023, multiple complications since then related to the J-tube placement requiring multiple surgeries. Ongoing leak around the J-tube, improving still cannot use the J-tube for feeding Acute peritonitis secondary to above, secondary to small bowel perforation with abdominal contamination Septic shock secondary to above Paroxysmal atrial fibrillation Acute kidney injury requiring hemodialysis secondary to sepsis and septic shock, last hemodialysis was on the , apparently patient is not requiring hemodialysis since then and nephrology planning to discontinue his dialysis catheter from the left groin Weight loss secondary to non-Hodgkin's lymphoma Acute aspiration pneumonia/right upper lobe lung abscess Acute aspiration during upper endoscopy most likely secondary to gastric outlet obstruction secondary to non-Hodgkin's lymphoma based on the pathology from stomach biopsies 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 Today the patient will go on pressure support of 8 and CPAP not quite ready to be extubated. Critical illness polyneuropathy Metabolic encephalopathy Malfunctioning of the J-tube Recommendation: Continue ventilatory support changes, plan today to lower down the IMV rate hopefully from 16-8 and keep pressure support of 14 FiO2 of 30% tidal volume the same. Continue Dilaudid and Precedex avoid propofol avoid benzodiazepines Still waiting for clearance by surgery to use the jejunostomy tube if possible for enteral feeding/nutritional support in the meantime the patient is on TPN Continue antibiotics including daptomycin and Zosyn, Eraxis was added by infectious disease Close monitoring of daily labs, and monitor daily x-rays of the chest Continue GI and DVT prophylaxis Continue nutritional support/TPN Remains critically ill the goal is to eventually transfer the patient out of the ICU to go to select care specialty hopefully in the next few days. Prognosis is extremely poor and guarded Family updated on his condition again Critical care time is over 30 Will continue to follow Time with Patient: Greater than 30
[2023-12-29] MEDS: SODIUM PHOSPHATE 15 MMOL in DEXTROSE 5% IN WATER 250 ML IVPB ONE (12:27)
[2023-12-29 12:31] LABS: Glucose,Whole Blood 220 mg/dL (70-110)
--- NOTE | 2023-12-29 13:40 | P.PN ---
Subjective Progress Note Date: 12/28/23 73-year-old white male with history of chronic abdominal pain for the last 8 months has been treated with Protonix 40 mg daily for the last 3 months with no improvement. Patient had a 22 pound weight loss in the last [address] of the abdomen and pelvis 3 weeks ago showed thickening of the antral wall with pathological adenopathy posterior to the stomach suspicious of neoplasm. Today the patient underwent elective upper endoscopy to evaluate further, patient received IV sedation by anesthesia endoscope was inserted into the mouth, esophagus was intubated without any difficulty there was evidence of large amount of liquid and solid food noted in the stomach suggestive of gastric outlet obstruction. Scope could not be advanced through the pylorus, however in the prepyloric area there was a large superficial ulceration identified with multiple biopsies were done from this area. The body cardia and fundus could not adequately visualize because of large amount of retained food in the stomach . Scope was withdrawn back to the stomach and upon careful examination the mucosa of the antrum body and cardia as well as the fundus appeared normal. Procedure was being performed and biopsies were done patient threw up and subsequently became hypoxic there was clearly evidence of witnessed aspiration anesthesia intubated the patient, procedure was terminated, and the patient was transferred to the ICU, this consult was initiated. Patient is now on assist- control rate of 20 tidal volume 500 FiO2 70% PEEP of 10 ABG is pending, earlier ABG showed profound hypoxia patient is on propofol at 50 mcg/kg/min, next ABG is pending. Chest x-ray showed chronic changes without evidence of acute pulmonary disease. 12/27/2023 Patient is seen and evaluated with family at bedside; remains in the ICU intubated and mechanically ventilated. - ABG showed a pO2 of 99 pCO2 31 pH of 7.44. -- Remains on Eraxis daptomycin and Zosyn patient is intermittently requiring Dilaudid, Ativan does not seem to help his agitation and restlessness. -- Continues to have leakage around the jejunostomy tube, and patient is undergoing the J-tube exchange today. Family is at bedside, seems to be quite anxious about his overall condition, and I explained to the that we are doing the best we can considering his critical illness situation and critical illness polyneuropathy. Patient is profoundly weak, and weaning the patient from mechanical ventilation is almost impossible. At least not at this point yet WBC count is 10.9 hemoglobin is 8.1 basic metabolic profile is normal BUN is 46 creatinine 1.90 patient has been off hemodialysis since the . Chest x- ray continues to show stable findings with right upper lobe opacity and right lower lobe opacity and possibly a small right-sided pleural effusion ----Continue ventilatory support, now on IMV mode rate of 16 with pressure support of 14 Continue Precedex and use Dilaudid 0.5 mg every 2-3 hours as needed. Nutritional support patient is now on TPN, Possible J-tube changed today for J- tube malfunction Continue antibiotics including daptomycin and Zosyn, Eraxis was added by infectious disease 12/28/2023 the patient is seen and evaluated in room at bedside; continues to be afebrile, the patient is on the ventilator through the trach FiO2 is currently stable at 30% no significant pleural effusion clinically patient on requiring any pressor support still having drainage around his jejunostomy tube patient dialysis catheter has been discontinued. Patient white count normalized to 7.6, creatinine is 1.51 patient with pneumonia with a sputum showing Citrobacter and Pseudomonas aeruginosa, the patient sputum repeat is still growing Citrobacter and Pseudomonas sensitive to the Pseudomonas is pending continue with Zosyn -patient did have a positive blood culture with staph epi that was oxacillin resistant as the patient did have a PICC line and the dialysis catheter he is on daptomycin repeat blood culture currently growing oxacillin sensitive staph epi, the patient dialysis catheter has been discontinued Has been sent for the culture -patient also have significant excoriation around his jejunostomy tube site which is still leaking Eraxis was added which will be continued as the patient fever pattern has improved and the patient white count has normalized once again discussed with the nursing staff to apply Triad cream which was discussed yesterday but not applied and monitor clinical course closely Objective - Vital Signs Vital signs: Vital Signs Temp 98.2 F 12/28/23 04:00 Pulse 64 12/28/23 08:02 Resp 26 H 12/28/23 07:00 BP 145/87 12/28/23 07:00 Pulse Ox 98 12/28/23 07:00 FiO2 30 12/28/23 07:55 Intake & Output 12/27/23 12/28/23 12/28/23 18:59 06:59 18:59 Intake Total 981.465 919.077 50 Output Total 1000 725 60 Balance -18.535 194.077 -10 Weight 100.6 kg 100.7 kg Intake: IV 650 650 50 0.9 KVO 650 550 50 Piperacillin-Tazobactam 3 100 .375 gm In Sodium Chloride 0.9% 100 ml @ 25 mls/hr IVPB Q12HR [facility] Rx #:[id number] Intake, IV Titration 331.465 269.077 Amount Dexmedetomidine/0.9% NaCl 71.465 269.077 (Pmx) 400 mcg In Empty Bag 1 bag @ 0.2 MCG/KG/HR 4.94 mls/hr IV .[id number] [facility] Rx#:[id number] Sodium Acetate 30 meq 260 Potassium Acetate 30 meq Magnesium Sulfate gm 1.5 gm Calcium Gluconate 1 gm In Amino Acids 5 %/ Dextrose 20 % 1,000 ml @ 65 mls/hr IV .BY DURATION [facility] Rx#:[id number] Output: Drainage 100 140 Right Abdomen 100 140 Urine 900 585 60 Other: Voiding Method Indwelling Catheter Indwelling Catheter ABP, PAP, CO, CI - Last Documented Arterial Blood Pressure 167/71 - Exam General: Revealed 73-year-old white male on mechanical ventilation with IMV mode and pressure support as noted earlier. On Precedex. Skin: Skin is warm and dry and no rashes or lesions are noted. Eye: Pupils are equal, round and reactive to light, extra-ocular movements are intact; there is normal conjunctiva bilaterally. Ears, nose, mouth and throat: There are moist mucous membranes and no oral lesions. Neck: The neck is supple, there is no tenderness or JVD. Tracheostomy is intact. No air leak noted today Cardiovascular: There is a regular rate and rhythm. No murmur, rub or gallop is appreciated. Respiratory: Crackles at the bases, no rhonchi no wheezes Gastrointestinal: no rebound, no guarding, no bowel sounds, positive leak noted around the jejunostomy tube, being addressed by surgery on the case, considering changing J-tube today Musculoskeletal: No deformities and no limitation range of motion other the patient seems to be generally weak. 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 Neurological: Patient is arousable but not appropriate, gets extremely agitated Extremities: 1+ bipedal edema - Labs CBC & Chem 7: 12/29/23 05:15 12/29/23 05:15 Labs: Abnormal Lab Results - Last 24 Hours (Table) 12/27/23 12/27/23 12/27/23 Range/Units 12:49 17:39 23:25 RBC (4.30-5.90) m/uL Hgb (13.0-17.5) gm/dL Hct (39.0-53.0) % RDW (11.5-15.5) % Plt Count (150-450) k/uL ABG pCO2 (35-45) mmHg ABG pO2 (83-108) mmHg ABG HCO3 (21-25) mmol/L ABG O2 Saturation (94-97) % Hemoglobin (13.0-17.5) gm/dL Chloride (98-107) mmol/L Carbon Dioxide (22-30) mmol/L BUN (9-20) mg/dL Creatinine (0.66-1.25) mg/dL Glucose (74-99) mg/dL POC Glucose (mg/dL) 287 H 221 H 222 H (70-110) mg/dL Calcium (8.4-10.2) mg/dL Phosphorus (2.5-4.5) mg/dL Total Protein (6.3-8.2) g/dL Albumin (3.5-5.0) g/dL 12/28/23 12/28/23 12/28/23 Range/Units 05:07 05:20 05:20 RBC 2.65 L (4.30-5.90) m/uL Hgb 7.9 L (13.0-17.5) gm/dL Hct 24.1 L (39.0-53.0) % RDW 18.3 H (11.5-15.5) % Plt Count 73 L (150-450) k/uL ABG pCO2 31 L (35-45) mmHg ABG pO2 113 H (83-108) mmHg ABG HCO3 20 L (21-25) mmol/L ABG O2 Saturation 99.0 H (94-97) % Hemoglobin 7.8 L (13.0-17.5) gm/dL Chloride 122 H (98-107) mmol/L Carbon Dioxide 20 L (22-30) mmol/L BUN 45 H (9-20) mg/dL Creatinine 1.51 H (0.66-1.25) mg/dL Glucose 234 H (74-99) mg/dL POC Glucose (mg/dL) (70-110) mg/dL Calcium 6.8 L (8.4-10.2) mg/dL Phosphorus 2.4 L (2.5-4.5) mg/dL Total Protein 4.9 L (6.3-8.2) g/dL Albumin 1.7 L (3.5-5.0) g/dL 12/28/23 Range/Units 05:26 RBC (4.30-5.90) m/uL Hgb (13.0-17.5) gm/dL Hct (39.0-53.0) % RDW (11.5-15.5) % Plt Count (150-450) k/uL ABG pCO2 (35-45) mmHg ABG pO2 (83-108) mmHg ABG HCO3 (21-25) mmol/L ABG O2 Saturation (94-97) % Hemoglobin (13.0-17.5) gm/dL Chloride (98-107) mmol/L Carbon Dioxide (22-30) mmol/L BUN (9-20) mg/dL Creatinine (0.66-1.25) mg/dL Glucose (74-99) mg/dL POC Glucose (mg/dL) 248 H (70-110) mg/dL Calcium (8.4-10.2) mg/dL Phosphorus (2.5-4.5) mg/dL Total Protein (6.3-8.2) g/dL Albumin (3.5-5.0) g/dL Microbiology - Last 24 Hours (Table) 12/25/23 16:49 Gram Stain - Preliminary Sputum Sputum Culture - Preliminary Citrobacter freundii Pseudomonas aeruginosa 12/25/23 12:52 Blood Culture Gram Stain - Preliminary Blood Blood Culture - Preliminary Molecular ID Assessment and Plan Assessment: 1. Acute hypoxic respiratory failure requiring intubation mechanical venti lation secondary to aspiration during upper endoscopy most likely secondary to gastric outlet obstruction Continue ventilatory support Continue DuoNeb 3 mL elation 4 times daily, Solu-Medrol 40 mg IV daily Continuing to evaluate for placement of a long-term acute care facility 2. Paroxysmal atrial fibrillation - resolved at the moment Normal on telemetry, patient noted to be in A-fib with RVR 3. CRISTAL secondary to sepsis and septic shock Patient receiving hemodialysis since 11/28 Continue to monitor patient's urine output 4. Acute aspiration at night as secondary to acute aspiration during upper endoscopy most likely secondary to gastric outlet obstruction secondary to non- Hodgkin's lymphoma based on the pathology from stomach biopsies Patient had been on IV Zosyn and vancomycin have been discontinued Has received 14 days total of antibiotics, combined Zosyn, vancomycin, meropenem 5. 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
[2023-12-29] MEDS: CEFTOLOZANE/TAZOBACTAM 3 GM in SODIUM CHLORIDE 0.9% 100 ML IV SCH (14:12)
--- NOTE | 2023-12-29 14:27 | P.PN ---
Subjective Progress Note Date: 12/29/23 73-year-old white male with history of chronic abdominal pain for the last 8 months has been treated with Protonix 40 mg daily for the last 3 months with no improvement. Patient had a 22 pound weight loss in the last [address] of the abdomen and pelvis 3 weeks ago showed thickening of the antral wall with pathological adenopathy posterior to the stomach suspicious of neoplasm. Today the patient underwent elective upper endoscopy to evaluate further, patient received IV sedation by anesthesia endoscope was inserted into the mouth, esophagus was intubated without any difficulty there was evidence of large amount of liquid and solid food noted in the stomach suggestive of gastric outlet obstruction. Scope could not be advanced through the pylorus, however in the prepyloric area there was a large superficial ulceration identified with multiple biopsies were done from this area. The body cardia and fundus could not adequately visualize because of large amount of retained food in the stomach . Scope was withdrawn back to the stomach and upon careful examination the mucosa of the antrum body and cardia as well as the fundus appeared normal. Procedure was being performed and biopsies were done patient threw up and subsequently became hypoxic there was clearly evidence of witnessed aspiration anesthesia intubated the patient, procedure was terminated, and the patient was transferred to the ICU, this consult was initiated. Patient is now on assist- control rate of 20 tidal volume 500 FiO2 70% PEEP of 10 ABG is pending, earlier ABG showed profound hypoxia patient is on propofol at 50 mcg/kg/min, next ABG is pending. Chest x-ray showed chronic changes without evidence of acute pulmonary disease. 12/27/2023 Patient is seen and evaluated with family at bedside; remains in the ICU intubated and mechanically ventilated. - ABG showed a pO2 of 99 pCO2 31 pH of 7.44. -- Remains on Eraxis daptomycin and Zosyn patient is intermittently requiring Dilaudid, Ativan does not seem to help his agitation and restlessness. -- Continues to have leakage around the jejunostomy tube, and patient is undergoing the J-tube exchange today. Family is at bedside, seems to be quite anxious about his overall condition, and I explained to the that we are doing the best we can considering his critical illness situation and critical illness polyneuropathy. Patient is profoundly weak, and weaning the patient from mechanical ventilation is almost impossible. At least not at this point yet WBC count is 10.9 hemoglobin is 8.1 basic metabolic profile is normal BUN is 46 creatinine 1.90 patient has been off hemodialysis since the . Chest x- ray continues to show stable findings with right upper lobe opacity and right lower lobe opacity and possibly a small right-sided pleural effusion ----Continue ventilatory support, now on IMV mode rate of 16 with pressure support of 14 Continue Precedex and use Dilaudid 0.5 mg every 2-3 hours as needed. Nutritional support patient is now on TPN, Possible J-tube changed today for J- tube malfunction Continue antibiotics including daptomycin and Zosyn, Eraxis was added by infectious disease 12/28/2023 the patient is seen and evaluated in room at bedside; continues to be afebrile, the patient is on the ventilator through the trach FiO2 is currently stable at 30% no significant pleural effusion clinically patient on requiring any pressor support still having drainage around his jejunostomy tube patient dialysis catheter has been discontinued. Patient white count normalized to 7.6, creatinine is 1.51 patient with pneumonia with a sputum showing Citrobacter and Pseudomonas aeruginosa, the patient sputum repeat is still growing Citrobacter and Pseudomonas sensitive to the Pseudomonas is pending continue with Zosyn -patient did have a positive blood culture with staph epi that was oxacillin resistant as the patient did have a PICC line and the dialysis catheter he is on daptomycin repeat blood culture currently growing oxacillin sensitive staph epi, the patient dialysis catheter has been discontinued Has been sent for the culture -patient also have significant excoriation around his jejunostomy tube site which is still leaking Eraxis was added which will be continued as the patient fever pattern has improved and the patient white count has normalized once again discussed with the nursing staff to apply Triad cream which was discussed yesterday but not applied and monitor clinical course closely 12/29/2023 Patient is seen and evaluated with family members at bedside; remains intubated and mechanically ventilated -- ABG showed a pO2 of 105 pCO2 31 pH of 7.45. Remains on Precedex; multiple antibiotics and antifungal including Eraxis daptomycin and Zosyn. -- chest x-ray is showing improvement in his right upper lobe airspace disease/pulmonary abscess. Right lower lobe seems about the same with chronic opacity and possibly some small right-sided pleural effusion. --Family is at bedside, patient is arousable but does not follow any i nstructions. Gets extremely restless and agitated easily hence patient is receiving Dilaudid which seems to be working much better for this patient than benzodiazepines --possibly transfer the patient to a select care specialty. Objective - Vital Signs Vital signs: Vital Signs Temp 98.5 F 12/29/23 04:00 Pulse 65 12/29/23 07:39 Resp 27 H 12/29/23 07:00 BP 128/80 12/29/23 07:00 Pulse Ox 98 12/29/23 07:00 FiO2 30 12/29/23 07:31 Intake & Output 12/28/23 12/29/23 12/29/23 18:59 06:59 18:59 Intake Total 1261.711 900.000 50 Output Total 1060 955 60 Balance 201.711 -55.000 -10 Weight 101.5 kg Intake: IV 600 600 50 0.45 600 300 50 Piperacillin-Tazobactam 3 100 .375 gm In Sodium Chloride 0.9% 100 ml @ 25 mls/hr IVPB Q12HR [facility] Rx #:[id number] Sodium Chloride 0.45% 1, 200 000 ml @ 50 mls/hr IV . Q20H [facility] Rx#:[id number] Intake, IV Titration 661.711 300.000 Amount Dexmedetomidine/0.9% NaCl 206.711 200.000 (Pmx) 400 mcg In Empty Bag 1 bag @ 0.2 MCG/KG/HR 4.94 mls/hr IV .[id number] [facility] Rx#:[id number] Sodium Acetate 30 meq 455 Potassium Acetate 30 meq Magnesium Sulfate gm 1 gm Calcium Gluconate 1 gm In Amino Acids 5 %/ Dextrose 20 % 1,000 ml @ 65 mls/hr IV .BY DURATION [facility] Rx#:[id number] Sodium Chloride 0.45% 1, 100 000 ml @ 50 mls/hr IV . Q20H [facility] Rx#:[id number] Output: Drainage 140 Right Abdomen 140 Urine 1060 815 60 Other: Voiding Method Indwelling Catheter Indwelling Catheter ABP, PAP, CO, CI - Last Documented Arterial Blood Pressure 172/73 - Exam General: Revealed 73-year-old white male on mechanical ventilation with IMV mode and pressure support as noted earlier. On Precedex. Skin: Skin is warm and dry and no rashes or lesions are noted. Eye: Pupils are equal, round and reactive to light, extra-ocular movements are intact; there is normal conjunctiva bilaterally. Ears, nose, mouth and throat: There are moist mucous membranes and no oral lesions. Neck: The neck is supple, there is no tenderness or JVD. Tracheostomy is intact. No air leak noted today Cardiovascular: There is a regular rate and rhythm. No murmur, rub or gallop is appreciated. Respiratory: Crackles at the bases, no rhonchi no wheezes Gastrointestinal: no rebound, no guarding, no bowel sounds, positive leak noted around the jejunostomy tube, being addressed by surgery on the case, considering changing J-tube today Musculoskeletal: No deformities and no limitation range of motion other the patient seems to be generally weak. 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 Neurological: Patient is arousable but not appropriate, gets extremely agitated Extremities: 1+ bipedal edema - Labs CBC & Chem 7: 12/29/23 05:15 12/29/23 05:15 Labs: Abnormal Lab Results - Last 24 Hours (Table) 12/28/23 12/28/23 12/28/23 Range/Units 11:44 17:06 23:52 RBC (4.30-5.90) m/uL Hgb (13.0-17.5) gm/dL Hct (39.0-53.0) % RDW (11.5-15.5) % Plt Count (150-450) k/uL ABG pCO2 (35-45) mmHg ABG O2 Saturation (94-97) % Hemoglobin (13.0-17.5) gm/dL Chloride (98-107) mmol/L Carbon Dioxide (22-30) mmol/L BUN (9-20) mg/dL Creatinine (0.66-1.25) mg/dL Glucose (74-99) mg/dL POC Glucose (mg/dL) 212 H 228 H 205 H (70-110) mg/dL Calcium (8.4-10.2) mg/dL Phosphorus (2.5-4.5) mg/dL Total Bilirubin (0.2-1.3) mg/dL Total Protein (6.3-8.2) g/dL Albumin (3.5-5.0) g/dL 12/29/23 12/29/2324 Range/Units 05:15 05:15 05:21 RBC 2.59 L (4.30-5.90) m/uL Hgb 7.4 L (13.0-17.5) gm/dL Hct 23.5 L (39.0-53.0) % RDW 18.1 H (11.5-15.5) % Plt Count 71 L (150-450) k/uL ABG pCO2 31 L (35-45) mmHg ABG O2 Saturation 98.9 H (94-97) % Hemoglobin 7.6 L (13.0-17.5) gm/dL Chloride 122 H (98-107) mmol/L Carbon Dioxide 21 L (22-30) mmol/L BUN 43 H (9-20) mg/dL Creatinine 1.29 H (0.66-1.25) mg/dL Glucose 207 H (74-99) mg/dL POC Glucose (mg/dL) (70-110) mg/dL Calcium 6.9 L (8.4-10.2) mg/dL Phosphorus 1.7 L (2.5-4.5) mg/dL Total Bilirubin 1.5 H (0.2-1.3) mg/dL Total Protein 4.8 L (6.3-8.2) g/dL Albumin 1.7 L (3.5-5.0) g/dL 12/29/23 Range/Units 05:34 RBC (4.30-5.90) m/uL Hgb (13.0-17.5) gm/dL Hct (39.0-53.0) % RDW (11.5-15.5) % Plt Count (150-450) k/uL ABG pCO2 (35-45) mmHg ABG O2 Saturation (94-97) % Hemoglobin (13.0-17.5) gm/dL Chloride (98-107) mmol/L Carbon Dioxide (22-30) mmol/L BUN (9-20) mg/dL Creatinine (0.66-1.25) mg/dL Glucose (74-99) mg/dL POC Glucose (mg/dL) 197 H (70-110) mg/dL Calcium (8.4-10.2) mg/dL Phosphorus (2.5-4.5) mg/dL Total Bilirubin (0.2-1.3) mg/dL Total Protein (6.3-8.2) g/dL Albumin (3.5-5.0) g/dL Microbiology - Last 24 Hours (Table) 12/25/23 16:49 Gram Stain - Final Sputum Sputum Culture - Final Citrobacter freundii Pseudomonas aeruginosa 12/25/23 12:52 Blood Culture Gram Stain - Preliminary Blood Blood Culture - Preliminary Staphlyococcus pettenkoferi Molecular ID Assessment and Plan Assessment: 1. Acute hypoxic respiratory failure requiring intubation mechanical ventilation secondary to aspiration during upper endoscopy most likely secondary to gastric outlet obstruction Continue ventilatory support Continue DuoNeb 3 mL elation 4 times daily, Solu-Medrol 40 mg IV daily Continuing to evaluate for placement of a long-term acute care facility 2. Paroxysmal atrial fibrillation - resolved at the moment Normal on telemetry, patient noted to be in A-fib with RVR 3. CRISTAL secondary to sepsis and septic shock Patient receiving hemodialysis since 11/28 Continue to monitor patient's urine output 4. Acute aspiration at night as secondary to acute aspiration during upper endoscopy most likely secondary to gastric outlet obstruction secondary to non- Hodgkin's lymphoma based on the pathology from stomach biopsies Patient had been on IV Zosyn and vancomycin have been discontinued Has received 14 days total of antibiotics, combined Zosyn, vancomycin, meropenem 5. 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
--- NOTE | 2023-12-29 15:35 | P.PN ---
Subjective Progress Note Date: 12/29/23 Principal diagnosis: Reason for follow-up is pneumonia and bacteremia Patient is 73-year-old with male initial presentation to the hospital on 11/11/2021 for after the patient did have aspiration while undergoing elective endoscopy, diagnosed with a non-Hodgkin of, subsequently did have explained laparotomy for perforated small bowel abdominal washout and feeding jejunostomy tube patient did require dialysis catheter placement for dialysis during this hospital stay and tracheostomy for respiratory failure, infectious was consulted for fever. On today's evaluation that is 12/29/2023, Patient is afebrile patient is currently on a ventilator through the trach FiO2 stable at 30% patient is hemodynamically stable not requiring any pressor support no diarrhea in the change reported by the nursing staff. Patient white count 7.7, creatinine is 1.2 9 repeat sputum did grow drug- resistant Pseudomonas aeruginosa sensitive to Zerbaxa Objective - Vital Signs Vital signs: Vital Signs Temp 98.1 F 12/29/23 12:00 Pulse 58 L 12/29/23 14:00 Resp 21 12/29/23 14:00 BP 136/80 12/29/23 14:00 Pulse Ox 99 12/29/23 14:00 FiO2 30 12/29/23 12:00 Intake & Output 12/28/23 12/29/23 12/29/23 18:59 06:59 18:59 Intake Total 1261.711 009.868 1979.908 Output Total 1203 045 6575 Balance 201.711 -55.000 -85.092 Weight 101.5 kg Intake: IV 601 702 8514 0.45 600 300 400 Piperacillin-Tazobactam 3 100 100 .375 gm In Sodium Chloride 0.9% 100 ml @ 25 mls/hr IVPB Q12HR [facility] Rx #:[id number] Potassium Phosphate 10 500 mmol In Sodium Chloride 0 .9% 250 ml @ 125 mls/hr IV ONCE ONE Rx#:[id number] Sodium Chloride 0.45% 1, 200 000 ml @ 50 mls/hr IV . Q20H [facility] Rx#:[id number] Intake, IV Titration 661.711 300.000 89.908 Amount Dexmedetomidine/0.9% NaCl 206.711 200.000 89.908 (Pmx) 400 mcg In Empty Bag 1 bag @ 0.2 MCG/KG/HR 4.94 mls/hr IV .[id number] [facility] Rx#:[id number] Sodium Acetate 30 meq 455 Potassium Acetate 30 meq Magnesium Sulfate gm 1 gm Calcium Gluconate 1 gm In Amino Acids 5 %/ Dextrose 20 % 1,000 ml @ 65 mls/hr IV .BY DURATION [facility] Rx#:[id number] Sodium Chloride 0.45% 1, 100 000 ml @ 50 mls/hr IV . Q20H [facility] Rx#:[id number] TPN/PPN 455 TPN 455 Albumin 100 Albumin Human 25% 50 ml 100 In Empty Bag 1 bag @ 50 mls/hr IVPB Q1H [facility] Rx#: [id number] Output: Gastric Drainage 65 Drainage 140 30 Right Abdomen 140 30 Urine [phone] Other: Voiding Method Indwelling Catheter Indwelling Catheter Indwelling Catheter ABP, PAP, CO, CI - Last Documented Arterial Blood Pressure 166/66 - Exam GENERAL DESCRIPTION: An elderly male lying in bed in no distress RESPIRATORY SYSTEM: Unlabored breathing , decreased breath sounds at bases HEART: S1 S2 regular rate and rhythm , ABDOMEN: Soft , no tenderness EXTREMITIES: No edema feet - Labs CBC & Chem 7: 12/29/23 05:15 12/29/23 05:15 Labs: Abnormal Lab Results - Last 24 Hours (Table) 12/28/23 12/28/23 12/29/23 Range/Units 17:06 23:52 05:15 RBC (4.30-5.90) m/uL Hgb (13.0-17.5) gm/dL Hct (39.0-53.0) % RDW (11.5-15.5) % Plt Count (150-450) k/uL ABG pCO2 (35-45) mmHg ABG O2 Saturation (94-97) % Hemoglobin (13.0-17.5) gm/dL Chloride 122 H (98-107) mmol/L Carbon Dioxide 21 L (22-30) mmol/L BUN 43 H (9-20) mg/dL Creatinine 1.29 H (0.66-1.25) mg/dL Glucose 207 H (74-99) mg/dL POC Glucose (mg/dL) 228 H 205 H (70-110) mg/dL Calcium 6.9 L (8.4-10.2) mg/dL Phosphorus 1.7 L (2.5-4.5) mg/dL Total Bilirubin 1.5 H (0.2-1.3) mg/dL Total Protein 4.8 L (6.3-8.2) g/dL Albumin 1.7 L (3.5-5.0) g/dL 12/29/23 12/29/23 12/29/23 Range/Units 05:15 05:21 05:34 RBC 2.59 L (4.30-5.90) m/uL Hgb 7.4 L (13.0-17.5) gm/dL Hct 23.5 L (39.0-53.0) % RDW 18.1 H (11.5-15.5) % Plt Count 71 L (150-450) k/uL ABG pCO2 31 L (35-45) mmHg ABG O2 Saturation 98.9 H (94-97) % Hemoglobin 7.6 L (13.0-17.5) gm/dL Chloride (98-107) mmol/L Carbon Dioxide (22-30) mmol/L BUN (9-20) mg/dL Creatinine (0.66-1.25) mg/dL Glucose (74-99) mg/dL POC Glucose (mg/dL) 197 H (70-110) mg/dL Calcium (8.4-10.2) mg/dL Phosphorus (2.5-4.5) mg/dL Total Bilirubin (0.2-1.3) mg/dL Total Protein (6.3-8.2) g/dL Albumin (3.5-5.0) g/dL 12/29/23 Range/Units 12:30 RBC (4.30-5.90) m/uL Hgb (13.0-17.5) gm/dL Hct (39.0-53.0) % RDW (11.5-15.5) % Plt Count (150-450) k/uL ABG pCO2 (35-45) mmHg ABG O2 Saturation (94-97) % Hemoglobin (13.0-17.5) gm/dL Chloride (98-107) mmol/L Carbon Dioxide (22-30) mmol/L BUN (9-20) mg/dL Creatinine (0.66-1.25) mg/dL Glucose (74-99) mg/dL POC Glucose (mg/dL) 220 H (70-110) mg/dL Calcium (8.4-10.2) mg/dL Phosphorus (2.5-4.5) mg/dL Total Bilirubin (0.2-1.3) mg/dL Total Protein (6.3-8.2) g/dL Albumin (3.5-5.0) g/dL Microbiology - Last 24 Hours (Table) 12/25/23 12:52 Blood Culture Gram Stain - Final Blood Blood Culture - Final Staphlyococcus [email or web address] Molecular ID 12/25/23 16:49 Gram Stain - Final Sputum Sputum Culture - Final Citrobacter freundii Pseudomonas aeruginosa Assessment and Plan (1) Sepsis Current Visit: Yes Status: Acute Code(s): A41.9 - SEPSIS, UNSPECIFIED ORGAN ISM SNOMED Code(s): 38531212 (2) Pneumonia Current Visit: Yes Status: Acute Code(s): J18.9 - PNEUMONIA, UNSPECIFIED ORGANISM SNOMED Code(s): 397990284 (3) Bacteremia Current Visit: Yes Status: Acute Code(s): R78.81 - BACTEREMIA SNOMED Co de(s): 6023299 Plan: 1patient with pneumonia with a sputum showing Citrobacter and Pseudomonas aeruginosa, the patient sputum repeat is still growing Citrobacter and Pseudomonas sensitive to the Pseudomonas that is a drug-resistant and resistant to Zosyn which has been discontinued patient started on Zerbaxa and will monitor clinical course closely 2-patient did have a positive blood culture with staph epi that was oxacillin resistant as the patient did have a PICC line and the dialysis catheter he is on daptomycin repeat blood culture currently growing oxacillin sensitive staph epi, the patient dialysis catheter has been discontinued Has been sent for the culture await results of the catheter tip 3-patient also have significant excoriation around his jejunostomy tube site which is still leaking local care with Triad cream along with Eraxis Dictation was produced using [employer] dictation software. please excuse any grammatical, word or spelling errors. Time with Patient: Less than 30
[2023-12-29 17:54] LABS: Glucose,Whole Blood 220 mg/dL (70-110)
[2023-12-29] MEDS: [UNRECOGNIZED DRUG - REMARK] IV SCH (19:45)
[2023-12-29] MEDS: 1: MVI, ADULT NO.4 WITH VIT K 10 ML, TRACE (CONC-1ML/DOSE) 1 ML, SODIUM ACETATE 30 MEQ, IV SCH (20:01)
[2023-12-29 21:32] LABS: Glucose,Whole Blood 161 mg/dL (70-110)
[2023-12-29] MEDS: FAT EMULSION 20% 250 ML in EMPTY BAG 1 BAG IV SCH (21:59)
[2023-12-30 05:33] LABS: ABG Base Excess -3.6 mmol/L; ABG HCO3 20 mmol/L (21-25); ABG Oxygen Saturation 97.6 % (94-97); ABG PCO2 31 mmHg (35-45); ABG PH 7.42 (7.35-7.45); ABG PO2 87 mmHg (83-108); ABG TCO2 21 mmol/L (19-24); Allen Test Performed? Yes
[2023-12-30 05:38] LABS: Anisocytosis Slight; Basophils % (A) 0 %; Eosinophils # (A) 0.1 k/uL (0-0.7); Eosinophils % (A) 0 %; HGB 8.1 gm/dL (13.0-17.5); Hypochromasia Moderate; Lymphocytes # (A) 2.4 k/uL (1.0-4.8); Lymphocytes % (A) 21 %; MCH 29.4 pg (25.0-35.0); MCHC 32.3 g/dL (31.0-37.0); MCV 91.2 fL (80.0-100.0); Mean Platelet Volume 9.7; Monocytes # (A) 0.4 k/uL (0-1.0); Monocytes % (A) 4 %; Neutrophils # (A) 8.5 k/uL (1.3-7.7); Neutrophils % (A) 74 %; RBC 2.74 m/uL (4.30-5.90); RDW 18.4 % (11.5-15.5); WBC 11.5 k/uL (3.8-10.6)
[2023-12-30 05:41] LABS: Platelet Count 78 k/uL (150-450)
[2023-12-30 05:50] LABS: ALT 29 U/L (4-49); AST 21 U/L (17-59); African American GFR (CKD) 68 (>60 ml/min/1.73 sqM); Albumin 1.9 g/dL (3.5-5.0); Alkaline Phosphatase 96 U/L (38-126); Anion Gap 3 mmol/L; Blood Urea Nitrogen 42 mg/dL (9-20); Calcium 6.9 mg/dL (8.4-10.2); Carbon Dioxide 20 mmol/L (22-30); Chloride 119 mmol/L (98-107); Glucose 178 mg/dL (74-99); Magnesium 1.9 mg/dL (1.6-2.3); Non-African American GFR(CKD) 59 (>60 ml/min/1.73 sqM); Phosphorus 2.3 mg/dL (2.5-4.5); Potassium 4.2 mmol/L (3.5-5.1); Sodium 142 mmol/L (137-145); Total Protein 5.3 g/dL (6.3-8.2)
[2023-12-30] MEDS: MAGNESIUM SULFATE-D5W PMX 1 GM in DEXTROSE/WATER 1 100ML.BAG IVPB ONE (06:57)
--- NOTE | 2023-12-30 07:37 | XR ---
EXAMINATION TYPE: XR chest 1V portable DATE OF EXAM: 12/30/2023 Comparison: 12/29/2023 Clinical History: 73-year-old male mechanical ventilation Findings: Tracheostomy cannula is in place. Right anterior chest wall injection port with catheter tip low in t he right atrium probably in the region of the inferior cavoatrial junction. Left PICC tip upper right atrium. Heart upper limits of normal in size. Extensive pleural-parenchymal opacities throughout the right lung persists, suspect at least a moderate right pleural effusion. Mild patchy opacity left mi d and lower lung is similar. Impression: 1. Right anterior chest wall injection port catheter tip stable, low in the right atrium, probably ne ar the inferior cavoatrial junction. 2. Overall similar exam with extensive pleural-parenchymal opacities throughout the right with at [place] [address] a moderate pleural effusion. Mild patchy densities left mid and lower lung are also similar. [facility], , 12/30/2023 7:35 AM
[2023-12-30] MEDS: FAT EMULSION 20% 250 ML in EMPTY BAG 1 BAG IV SCH (09:24)
[2023-12-30] MEDS: MAGNESIUM SULFATE IV ONE (11:09)
[2023-12-30] MEDS: [UNRECOGNIZED DRUG - OTHER] IV ONE (11:09)
[2023-12-30] MEDS: POTASSIUM ACETATE IV ONE (11:09)
[2023-12-30] MEDS: SODIUM ACETATE IV ONE (11:09)
--- NOTE | 2023-12-30 11:32 | P.PN ---
Subjective Progress Note Date: 12/30/23 Principal diagnosis: Abdominal pain. This is a 73-year-old white male with history of chronic abdominal pain for the last 8 months has been treated with Protonix 40 mg daily for the last 3 months with no improvement. Patient had a 22 pound weight loss in the last [address] of the abdomen and pelvis 3 weeks ago showed thickening of the antral wall with pathological adenopathy posterior to the stomach suspicious of neoplasm. Today the patient underwent elective upper endoscopy to evaluate further, patient received IV sedation by anesthesia endoscope was inserted into the mouth, esophagus was intubated without any difficulty there was evidence of large amount of liquid and solid food noted in the stomach suggestive of gastric outlet obstruction. Scope could not be advanced through the pylorus, however in the prepyloric area there was a large superficial ulceration identified with multiple biopsies were done from this area. The body cardia and fundus could not adequately visualize because of large amount of retained food in the stomach. Scope was withdrawn back to the stomach and upon careful examination the mucosa of the antrum body and cardia as well as the fundus appeared normal. Procedure was being performed and biopsies were done patient threw up and subsequently became hypoxic there was clearly evidence of witnessed aspiration anesthesia intubated the patient, procedure was terminated, and the patient was transferred to the ICU, this consult was initiated. Patient is now on assist- control rate of 20 tidal volume 500 FiO2 70% PEEP of 10 ABG is pending, earlier ABG showed profound hypoxia patient is on propofol at 50 mcg/kg/min, next ABG is pending. Chest x-ray showed chronic changes without evidence of acute pulmonary disease. Patient was seen and examined today on 11/13/2023, remains in the ICU, intubated mechanically ventilated, on assist-control rate of 20 tidal volume 500 FiO2 50% and PEEP of 10 ABG showed a pO2 of 143 pCO2 47 pH of 7.28 hence PEEP was cut down to 6, and increased rate to 22. Patient is still requiring IV fluid at 100 cc/h/LR. Requiring norepinephrine at 0.08 mcg/kg/min he is also on propofol at 50 mg/kg/min antibiotics arce patient is receiving Zosyn. Chest x-ray is showing worsening infiltrates specially in the left lung. This could be related to aspiration pneumonia. Patient had witnessed aspiration during endoscopy/upper endoscopy.WBC count is 14 hemoglobin 7.6 basic metabolic profile is normal BUN is 26 creatinine 1.57 obviously the patient sustained some acute kidney injury baseline creatinine 0.86 patient had received fluids over the last 24 hours, remains on fluids at 100 cc/h Patient with seen and examined today on 11/14/2023, patient remains in the ICU, intubated and mechanically ventilated. Failed weaning trial yesterday and he became quite agitated and desaturated once he went off propofol. Had to be placed back on assist-control mode of mechanical ventilation and sedation. Today the patient is on assist-control rate of 22 tidal volume 500 FiO2 50% PEEP of 6. ABG showed a pO2 of 123 pCO2 51 pH of 7.32, and I cut down his FiO2 down to 45%, patient is receiving a unit of packed RBCs for hemoglobin of 6.9 today. Patient had an episode of A-fib RVR at 3 AM in the morning, seen by cardiology, and recommended patient goes on amiodarone. Still requiring norepinephrine at 0.05 mg/kg/min, he is on LR at 100 cc/h propofol at 50 mg/kg/min. Remains empirically on Zosyn for aspiration pneumonia. My plan today is transitioning the patient to Precedex, hopefully discontinue propofol, and at least give the patient a decent weaning trial or at least check weaning parameters before we proceed to weaning trial. Chest x-ray continues to show evidence of pneumonia mostly in the left lung and left lower lobe more specifically. Some pulmonary vascular congestion is noted with interstitial edema, small pleural effusion is also noted/left side. WBC count today is 12 hemoglobin 6.9 basic metabolic profile is normal bicarb is 25, BUN is 25 creatinine is improving down to 1.21 from 1.57 yesterday Patient was evaluated today on 11/15/2023, patient remains in the ICU, he was extubated yesterday, and his extubation was relatively uneventful. However the patient continues to have nasogastric tube in place, his pathology report came back showing non-Hodgkin's lymphoma, patient has gastric outlet obstruction, and the recommendation by GI is to consult surgery for a jejunostomy tube which is appropriate. Patient will be seen today by oncology and [facility] In the meantime patient is comfortable, he is on 5 L nasal cannula he has LR running at 100 cc/h, he is remains on Zosyn for aspiration pneumonia remains on amiodarone which was started by cardiology for atrial fibrillation with RVR, presently in sinus rhythm. Cannot switch him to oral because of the fact that remains n.p.o., patient remains on TPN. WBC count is 10.7 hemoglobin 7.5 electrolytes are normal renal profile is normal, creatinine normalized to 0.96 Patient was evaluated today on 11/16/2023, remains in the ICU, on 5 L nasal cannula remains on amiodarone at 0.5 mg/min remains on LR at 100 cc/h, however his chest x-ray is showing some component of interstitial edema or could be findings related to his recent episode of aspiration/aspiration pneumonia, nonetheless the patient seems to be a bit symptomatic, he has intermittent cough and wheezing, I am recommending Lasix 40 mg IV push, cut down his IV fluid to 50 cc/h, continue Zosyn, patient will be placed on DuoNeb updrafts and on Solu- Medrol. Patient is scheduled to have jejunostomy-tube placement today. WBC count is 13 hemoglobin 7.7 basic metabolic profile is normal and renal profile is normal Patient was evaluated today on 11/17/2023, patient underwent uneventful placement of a jejunostomy tube yesterday, in the ICU on 5 L, patient is relatively stable, not in any distress, patient continues to have nasogastric tube in place although he did have a J-tube placed yesterday. Patient was seen by oncology for his non-Hodgkin's lymphoma involving the gastric outlet. Today's x-ray showed evidence of pneumonia/bilateral interstitial infiltrate/edema patient was given a dose of Lasix, I reminded the patient had an aspiration episode which was significant. And he required intubation mechanical ventilation for a few days.WBC count today is 9.1 hemoglobin 7.9 electrolytes are normal renal profile is normal hence I plan to transfer the patient out of the ICU to a cardiac floor. And hopefully discharge planning in the next 2 days for The patient was seen today November 18, 2023 in follow-up in the intensive care unit. He is currently sitting up in bed. Awake and alert in no acute distress. He is maintaining O2 saturations in the 90s on 5 L/min per nasal cannula. Glucose 177. Remains on DuoNeb inhalations and Solu-Medrol. Antibiotics in the form of Zosyn. He has a J-tube in place. He was initiated on vital AF 1.2 at 10 mL an hour with a goal of 82 mL/h The patient is seen today November 19, 2023 in follow-up in the intensive care unit. He is a regular medical floor overflow patient. He is currently sitting up in a chair. Awake and alert in no acute distress. He is maintaining O2 saturations in the 90s on 5 L/min per nasal cannula. No IV fluids. He denies any worsening shortness of breath, cough or congestion. He is having some issues with diarrhea. He remains on Zosyn. He is receiving vital AF at 55 mL/h with a goal of 82 mL/h. Glucose 161. Solu-Medrol, DuoNeb inhalations. The patient is seen today November 20, 2023 in follow-up on the regular medical floor. He is currently up in a chair at the bedside. Awake and alert in no acute distress. Denies any worsening shortness of breath, cough or congestion. He is maintaining O2 saturation in the 90s on 3 L/min per nasal cannula. He continues on Zosyn. Continues on bronchodilators and steroids. White count 12.3. Hemoglobin 9.0. Platelets 258. Glucose 168. He is not tolerating his tube feeds as he has developed diarrhea. C. difficile screen was negative. Abdominal series revealed cardiomegaly with left basilar acute infiltrate and/or atelectasis. Overall nonspecific bowel gas pattern. A small bowel obstruction needs to be considered. Progress note dated November 21, 2023. The patient is seen in room 517. The patient is currently on 3 L of oxygen. He continues on Zosyn. His biggest complaint has been abdominal discomfort and diarrhea. He did have a CT scan of the abdomen and pelvis. Current laboratory data includes a white count of 14.4, hemoglobin 8.8, hematocrit 28.7, and platelet count 229,000. Sodium 139, potassium 4.1, chlorides 103, CO2 30, BUN 42, creatinine 0.94. Glucose is 158. Calcium is 8.5. Progress note dated November 22, 2023. 73-year-old male seen in room 517. He currently is on 2 L of oxygen. Room air saturation was 89%. Chest CT shows bilateral patchy infiltrates. He continues on Zosyn. He is still not taking anything by mouth. No new laboratory data today other than a glucose of 138. Gram stain was negative. Progress note dated November 23, 2023. 73-year-old male seen in room 517. He is resting comfortably without com plaints. He continues on saline at 10 cc an hour, tube feedings with Pivot at 20 cc an hour, Zosyn, and 2 L by nasal cannula. He has had an uneventful night. Laboratory data today includes a white count 14.5, hemoglobin 9.7, hematocrit 31.4, and a platelet count of 242,000. Sodium 138, potassium 3.7, chlorides 106, CO2 26, BUN 39, creatinine 0.95. Glucose is 181. Calcium is 8.5. Sputum sampling was negative. Progress note dated November 24, 2023. 73-year-old male who is seen in room 517. The patient has been having significant abdominal discomfort, and went for a evaluation, ordered by surgery today, to determine whether or not the feeding tube, was in proper position, and whether or not there is anything acutely going on in the abdomen. He had been having diarrhea. He is on 3 L of oxygen. He has been here for 12 days. This is a patient, that had a prior EGD, aspirated, because of gastric outlet obstruction, and was diagnosis of non-Hodgkin's lymphoma. He is currently on Zosyn, DuoNebs, and Solu-Medrol. He has been NPO. Chest x-ray showed a left lower lobe infiltrate. Abdominal x-ray showed multiple air-fluid levels. CT of the abdomen showed multiple dilated small bowel loops, consistent with obstruction, pneumoperitoneum, ascites, and cholelithiasis. White count was 14.1, hemoglobin 8.9, hematocrit 29.5, and platelet count was 255,000. Glucose was 143. 11/25/2023, the patient is being seen in the intensive care unit. The patient is critically ill, n.p.o., he has an NG tube in place. Following the NG tube insertion, there was a total of 2.0 L of output and the patient's J-tube was also draining approximately 200 cc over the past 8 hours. Continues to have abdominal pain which is rather diffuse and the patient has direct abdominal tenderness. CAT scan of the abdomen was noted and was consistent with small bowel obstruction. The patient has a stomach that was inflated and in the same time there were multiple loops of small bowel distended with fluid. This extended to the pelvis. J-tube with contrast nondilated small bowel loops within the mid abdomen. Additional loops of small bowel were seen that was dilated. There was some contrast in the right lower quadrant and contrast was also in the cecum. No transition point was identified. The dilated loops of the bowel appeared to be in the proximal jejunum and distal to the duodenum. General surgery is on the case the patient will be taken to the operating room for another exploratory laparotomy. Noted the CAT scan of the abdomen also showed pneumoperitoneum and small amount of ascites and cholelithiasis. Hemodynamically, the patient is currently on normal saline at rate of 75 cc an hour. He is hypotensive and is going to be started on pressors. He is on 4 L of oxygen by nasal cannula. He also has sustained acute kidney injury. Blood work from today shows a rise in the creatinine which is currently up to 2.5 with a BUN of 57. Serum bicarb is at 14 with an anion gap of 11. The patient WBC count is at 8.2 with a hemoglobin of 12.3 and a platelet count of 188. Chest x- ray from this morning is showing a right-sided port and a stable left lung airspace disease and an NG tube being in place. The patient remains on IV Zosyn. The patient is receiving Dilaudid for pain control. The patient remains on IV Solu-Medrol 60 mg every 6 hours. It was noted that the patient's surgical wound over the port has dehisced and there is some serous drainage and erythema at the incision site. Awake and alert and communicating. Family at the bedside. No apparent signs of respiratory distress at this point. 11/26/2023, the patient is being seen in follow-up. Events from yesterday was noted and the patient was taken to the operating room for exploratory laparotomy. The patient was found to have large amount of free fluid noted in the abdomen and there was significant contamination. There was perforation of the small bowel with the balloon of the previously inserted jejunostomy tube penetrating through the perforation. As such, the tube was removed, abdominal washout was done. Small bowel resection was done and the patient had a nodular jejunostomy tube inserted. Postop, the patient was extubated he was unable to tolerate extubation and the patient was kept intubated on mechanical ventilator and he was brought back to the intensive care unit. He is currently postop day #1 following his small bowel resection. Abdominal surgical wound site is dry c lean and intact. This morning, the patient remains sedated on propofol which is currently running at 35 mcg/kg/min. He is on assist-control mode of mechanical ventilation at rate of 28, tidal volume of 550, FiO2 of 60% with a PEEP of 5. Blood gas from today shows a pH of 7.35 with a pCO2 44 and pO2 of 88. Chest x- ray shows adequate positioning of the orotracheal tube. The patient has a Mediport on the right and a subclavian triple-lumen catheter on the left and the patient has persistent bilateral pleural effusion and infiltrates in lung base bilaterally. Hemodynamically, the patient remains in shock. He has been on high-dose norepinephrine which is currently running at 0.28 mcg/kg/min and the patient is also on vasopressin at 0.03 units an hour. He is IV fluids are in the form of bicarb infusion running at rate of 150 cc an hour. He is in sinus tachycardia. NG tube output has been 250 cc over the past 8 hours and the output from the J-tube is minimal at this point in time. Urine output is quite diminished as the patient has also sustained acute kidney injury. Overall fluid balance is +4.9 L over the past 24 hours. The patient's white cell count of 5.7 with a hemoglobin 9.9 and platelet count of 172. BUN is 72 with a creatinine of 2.8 and sodium levels at 143. The calcium level is at 6.5. LFTs are normal. Triglyceride level is at 315. On 11/27/2023, the patient remains critically ill. Remains intubated and on mechanical ventilator, still awaiting shock which is essentially septic shock. Remains on propofol which is running at 50 mcg/kg/min. Remains on the mechanical ventilator, assist-control mode with rate of 28, tidal volume of 550 with an FiO2 of 60% with a PEEP of 5. Blood gas shows a pH of 7.29 with a pCO2 of 47 and pO2 of 78. The patient had a follow-up chest x-ray that showed lower lobe consolidation slightly worse on the right and the orotracheal tube is in a good location. Urine output is diminished in the order of 5 to 10 cc an hour and the patient is also developing progressive worsening renal function. Remains on normal citrate of 150 cc an hour and the patient was started on TPN which is running at 30 cc an hour. He has a triple-lumen catheter in his left subclavian. Overall fluid balance over the past 24 hours is +3.9 L. Output from the NG tube and the J-tube is minimal. Hemodynamically, he is hypotensive and norepinephrine running at 0.45 mcg/kg/min. Vasopressin is a physiologic dose. He received amiodarone and he remains on maintenance amiodarone of 0.5 mg/min and the patient continues to be in atrial fibrillation and is having episodes of tachycardia. The white cell count is at 13, hemoglobin 9.4 platelet count is pending. The patient's BUN is 83 with a creatinine of 3.7. Sodium is at 140 with a potassium level of 5.5 dropped down to 4.4 as the sample was hemolyzed. LFTs are normal. Abdominal wound is dry clean and intact. RAYA drainage is essentially serous at this point in time. 11/28/2023, the patient is being seen for a follow-up. The patient remains intubated on mechanical ventilator. This morning, the patient tolerated propofol drip running at 50 mcg/kg/min. The patient is on mechanical ventilator assist-control mode with rate of 28, tidal volume of 550, FiO2 55% with a PEEP of 5. Chest x-ray shows stable findings with lower lobe consolidations bilaterally. Blood gas shows a pH of 7.32 with a pCO2 38 and pO2 90. Neuropathy has improved and the patient is producing approximately 30 cc an hour and the overall input output balance is +3.3 L over the past 24 hours. The patient is still on pressors although his pressor requirements have improved since yesterday. He is on norepinephrine which is running at 0.05 mcg/kg/min and vasopressin physiologic dose. Also, the patient on amiodarone drip regarding his chronic ongoing atrial fibrillation. Amiodarone drip is running at 0.5 mg/min. Nevertheless, the rate is under much better control. Noted the patient was given a dose of digoxin 0.5 mg IV yesterday which helped with rate control. Remains on normal citrate of 150 cc an hour. Remains on TPN at 40 cc an hour. Output from the J-tube is fecal. Output from the NG tube is more gastric. Surgical wound site is dry clean and intact. Sputum Gram stain and culture showing Pseudomonas and Citrobacter. Note that the Citrobacter was intermediate resistance to Zosyn. This will be discussed further with infectious disease. Blood cultures are still pending for now. They have negative based on the most recent check. Blood work from today shows WBC count 11.2, hemoglobin 7.9 and platelet count of 46. Sodium is at 140, potassium is at 4.3, chloride is 114 with a bicarb of 18. He has 93 and the creatinine is 4.8. Serum random vancomycin level is at 25.7. On 11/29/2023, the patient is being seen for a follow-up. Remains intubated on the mechanical ventilator. The patient sedated on propofol which is running at 35 mcg/kg/min. Synchronous with mechanical ventilator. On today's evaluation, he is on assist-control mode with rate of 28, tidal volume of 550, FiO2 55% with a PEEP of 5. Chest x-ray shows lower lobe consolidation bilaterally worse on th e right and the orotracheal tube is in good location. The blood gas showed a pH of 7.34 with a pCO2 of 35 and a pO2 of 84. No significant orotracheal secretions. Hemodynamically improved compared to yesterday. In fact, the patient is on minimal norepinephrine that was discontinued earlier this morning. The patient has converted to normal sinus rhythm. Remains on amiodarone at 0.5 mg/min. Overall fluid balance over the past 24 hours is 2.4 L positive. Urine output has been adequate and the patient is currently on IV Lasix. Nevertheless, the patient has developed progressive worsening renal function. Creatinine is up to 5.3 on today's evaluation with a potassium level of 4.4. Serum bicarb is at 18 with an anion gap of 9. WBC count is at 8.1 with a hemoglobin of 7 and a platelet count of 32 which has dropped compared to earlier evaluation. The rest of the coagulation profile was normal from 11/28/2023. Fibrinogen level is slightly elevated. Sputum samples have shown a combination of Citrobacter and Pseudomonas aeruginosa. Based on cultures and sensitivities, the patient will be taken off his IV Zosyn and he will be switched to IV meropenem. Output from the J-tube is fecal. Output from the NG tube is gastric and surgical wound site is dry clean and intact. He is afebrile for now. Hemodynamically, the patient is doing better. He remains on TPN for nutritional support. IV fluids are also running at a rate of 75 cc an hour. Remains on vancomycin. 11/30/2023, the patient is being seen for a follow-up. The patient remains on propofol at 50 mcg/kg/min. Ventilator settings are essentially unchanged. The patient remains on assist-control mode with rate of 18, tidal volume of 400, FiO2 50% with a PEEP of 5. The blood gas showed a pH of 7.37 with a pCO2 of 43 and pO2 of 127. Chest x-ray shows no significant interval change. Patient remains on normal saline at rate of 75 cc an hour and TPN at rate of 35 cc an hour. Fluid balance is positive. Hemodialysis was performed yesterday and the second session of hemodialysis to be done today. The patient's urine output is in the order of 20 to 30 cc an hour. The patient has an NG output of 350 cc for yesterday and the drainage from the J-tube is in the order of 400 cc over the past 24 hours. The blood work shows a WBC count of 10.8, hemoglobin 8.1 and platelet count of 41. Platelet counts are essentially stable and slightly improved compared to yesterday. The sodium level is at 133, potassium is at 4.3, BUN is 93 with a creatinine of 3.6. LFTs are within normal limits. Albumin is down to 2.1. The patient is currently on no pressors. Norepinephrine and vasopressin are both discontinued and the patient remains in normal sinus rhythm. No other significant events overnight. Family has been updated on his condition. Antibiotic coverage is currently with IV meropenem. Vancomycin and Zosyn have been both discontinued. On 12/01/2023, the patient remains sedated on propofol which is running at 25 mcg/kg/min., Comfortable and synchronous mechanical ventilator. The patient remains on assist-control mode rate of 28, tidal volume of 550, FiO2 40% and PEEP of 5. Blood gas shows a pH of 7.49 with a pCO2 of 34 and pO2 of 121. Patient underwent hemodialysis yesterday. No plans for hemodialysis today the patient is producing urine output. Remains on TPN for nutrition support rate of 75 cc an hour. IV fluids are currently at KVO. The chest x-ray from today shows bilateral lower lobe consolidation worse on the right. No significant change in the volume status. The patient continues to have third spacing and edema in all 4 extremities. Nevertheless, urine output is adequate at this point in time and the patient remains on Lasix 80 mg IV every 12 hours. Remains NPO. NG tube and J-tube are both drainage. Output is noted. Remains on IV meropenem. Afebrile. Currently on no pressors. Blood work shows a WBC count of 11.4, hemoglobin of 8.1 and platelet count of 46. Sodium is at 131, potassium level is at 3.7, chloride 101 and bicarb is at 24. BUN is 84 with a creatinine of 3.6. Glucose of 228. LFTs are within normal limits. Patient was reevaluated today on 12/02/23, patient remains in the ICU, patient is familiar to my service, I saw this patient 3 weeks ago. Since then he had a very complicated hospital course, related to his jejunostomy tube dislodging and leaking and picture of abdominal sepsis and worsening pneumonia/ARDS. Patient had to be placed back on mechanical ventilation, and he is now intubated and mechanically ventilated. He is on assist-control rate of 20 tidal volume 550 FiO2 40% PEEP of 5 ABG showed a pO2 of 111 pCO2 38 pH of 7.43 and I cut down his FiO2 to 35% and increase his flow rate from 60-70. Patient remains on TPN at 75 cc/h he is on propofol at 25 mcg/kg/min patient is on Cleviprex which I added today for elevated blood pressure. Receiving Lasix 80 mg every 12 hours is also on Merrem as per infectious disease. Patient is on hemodialysis and being followed by nephrology. Patient required multiple abdominal surgeries since his initial admission. Chest x-ray continues to show worsening pneumonia involving both lungs, right more so than left, I suspect there may be a component of ARDS. His initial presentation was the presentation of aspiration pneumonia to begin with and that was 3 weeks agoWBC count is 10.3 hemoglobin 8.6 sodium 131 potassium 4 chloride 100 bicarb 23 BUN is 111 creatinine 4.02 blood sugar is 248. Albumin is 1.9 Patient was evaluated today on , patient remains in the ICU, intubated and mechanically ventilated. Patient is on assist-control rate of 20 tidal volume 550 FiO2 35% and PEEP of 5 ABG showed a pO2 of 99 pCO2 39 pH of 7.44 patient is undergoing hemodialysis today, and the plan is to remove 2 L. He is remains on propofol at 35 mcg/kg/min, remains on TPN at 75 cc/h. Remains on Merrem. Patient is not requiring any pressors today. Yesterday patient did not tolerate to be off sedation long enough, and today we tried the same sedation interruption, and the patient did not do well post interruption of sedation, became extremely agitated restless, tachycardic, and could not fully assess mental status off sedation. Hence the patient was placed back on AC mode of mechanical ventilation, and the plan is to continue the same supportive care measures. Family updated on his condition and most likely the patient will end up requiring tracheostomy in the next few days.WBC count is 8.5 hemoglobin 8.2 basic metabolic profile is relatively unremarkable BUN is 89 creatinine 3.45 chest x-ray today showed stable chest, suspect some right-sided pleural effusion which would likely improve with hemodialysis/ultrafiltration. X-ray of abdomen showed nonspecific nonobstructive bowel gas pattern Patient was seen today on 12/04/2023, remains in the ICU, intubated mechanically ventilated, on assist-control rate of 20 tidal volume 550 FiO2 35% PEEP of 5 ABG showed a pO2 of 112 pCO2 38 pH of 7.45, hence no changes were made in ventilator settings. Patient is on propofol at 35 mcg/kg/min he is also on IV fluid at KVO TPN at 75 cc/h. Remains on hemodialysis remains on Lasix 80 mg IV push twice daily, remains on Merrem. This x-ray continues to show the same findi ngs/airspace disease in both lungs, not much of a change in the last 2 days, however his oxygenation seems to be improved. WBC count is 7.1 hemoglobin 7.7. Electrolytes are normal, BUN is elevated 77 creatinine 3.32, patient is on hemodialysis. His condition was discussed today with the at bedside, and I do not believe the patient is ready to be weaned or extubated, however he seems to get extremely agitated when he goes off propofol, today I plan to transition propofol to Precedex, give him a trial on Precedex and determine whether the patient becomes more appropriate and at least ready for any weaning trials. Clinically I doubt if this will happen but we will go ahead and try Patient was evaluated today on 12/05/2023, remains in the ICU, intubated mechanically ventilated, not much of a change noted in the last 24 hours. Remains on assist-control of 20 tidal volume 550 FiO2 35% PEEP of 5 ABG showed a pO2 of 90 pCO2 37 pH of 7.48 hence chose not to change any of his ventilator settings. Yesterday the patient failed again trial of weaning, and he was never anywhere near ready to be weaned in spite of placing him on Precedex and off propofol, at 1 point the patient became extremely agitated restless and he was biting on the endotracheal tube could not fully awake the patient and determine improvement in his mental status. Hence patient was placed back on propofol yesterday and he remains on propofol today. He is on propofol at 25 mcg/kg/min he is on TPN at 75 cc/h surgery is considering starting his J-tube feedings today. Remains on hemodialysis remains on Merrem remains on Lasix 80 mg IV push twice daily overall not much of a change his chest x-ray is basically about the same showing bibasilar airspace disease. Today I had a discussion with the regarding the option of tracheostomy extremely reluctant to have it done yet. Said that the patient had multiple complications with previous surgeries and she is afraid that he is going to have another complication with the surgeryWBC count is 10.2 hemoglobin is 8, basic metabolic profile is normal sodium 130 BUN 70 creatinine 2.89 Patient was seen today on 12/06/23, remains in the ICU, intubated mechanically ventilated, his ventilator settings are assist-control rate 20 tidal volume 550 FiO2 35% and PEEP of 5 ABG showed a pO2 of 103 pCO2 36 pH of 7.47 patient opens eyes but does not follow any other instructions. He is now off propofol for the last 24 hours, he is maintained on Precedex at 0.4, TPN at 75 cc/h vital AF at 5 mL/h. Patient remains on Merrem, patient did not receive dialysis today because issues related to occluded dialysis catheter. Nonetheless the patient is making urine, and continues to improve with diuretics. Chest x-ray continues to show bibasilar airspace disease, not much of a jacquard loom card changer the last 1 week.WBC count today is 11.8 hemoglobin is 7.9.Basic metabolic profile is normal BUN is 92 creatinine 3.74. Blood sugar is 226. Family is at bedside, considering his overall mental status at this point, not quite ready to start checking weaning parameters, and is not ready for weaning. Nonetheless I plan to keep him on Precedex, and hopefully avoid narcotics and other sedatives. His mentation starts clearing a bit more, then will start trials of weaning parameters and/or weaning trials Patient was seen today on 12/07/2023, remains in the ICU, intubated and mechanically ventilated, on assist-control rate of 20 tidal volume 550 FiO2 35% PEEP of 5 ABG showed a pO2 of 83 pCO2 33 pH of 7.50 hence the tidal volume was cut down to 500. Patient remains off propofol remains off narcotics is only on Precedex for sedation at 0.6 mg/kg/h. He is on norepinephrine at 0.02 TPN at 75 cc/h IV fluid at KVO vital AF at 10 mL/h is also on Merrem. Neurologically I am concerned about this patient neurological status, does not seem to be waking up much, he opens his eyes but does not follow any instructions and spite of sedation hold for quite some time. Hence I am recommending a CT of the brain and multiple recommending a neurological consultation on this patient. WBC count is 18 7 hemoglobin is 8.4, basic metabolic profile is normal BUN is 75 creatinine 2.95, patient is back on dialysis, he had a new hemodialysis catheter placed yesterday by vascular surgery, and he will be restarted back on hemodialysis. CT of the brain done shortly after evaluating the patient showed no acute intracranial process chest x-ray basically about the same, continues to show small left and moderate right basilar infiltrate. Has not changed much over the last 1 week, patient remains on antibiotics. Patient was seen today on 12/08/2023, remains in the ICU, intubated and mechanically ventilated, remains on assist-control rate of 20 tidal volume 500 FiO2 35% PEEP of 5 ABG showed a pO2 of 88 pCO2 37 pH of 7.47 hence no changes were made in ventilator settings. Chest x-ray is showing slight increase in his right-sided pleural effusion, however his oxygenation seems to be about the same, and the patient is responding to Lasix given at 80 mg IV push every 12 hours, he is also doing well with hemodialysis he had 2 L removed yesterday and 2 L the day before. Hence will not recommend thoracentesis at this point. But the pleural effusion will need to be closely monitored. Patient remains off propofol he is on Precedex at 0.6 mcg/kg/h. For the last 2 days, and his mentation is not much different from baseline. Continues to open his eyes and does not follow any other instructions has the patient is clearly not ready for weaning trials or extubation. Brought up the issue of tracheostomy again with the , she is still reluctant to proceed with tracheostomy on him at this point. Patient remains on Merrem, remains on TPN but his enteral feeding will be advanced today to full goal, and if that happens then we will can discontinue TPN. Patient is receiving vital AF 1.2@10 mL/h at this point.WBC count is 19.3 hemoglobin 7.6. Basic metabolic profile is normal BUN is 72 creatinine 2.99 blood sugar ranging between 250 up to 334. 12/09/23 - patient seen at bedside today, remaining in the ICU, intubated and mechanically ventilated, remaining on assist-control rate of 20, tidal volume 500, FiO2 30%, PEEP of 5 and oxygen saturation of 100%. Patient is on day 27 of his hospital stay (admitted 11/11), day 15 of this current ICU stay (readmit to the ICU 11/24) and day 15 of this current period of time on the ventilator (placed 11/24). ABG showed pO2 100, pCO2 36, pH 7.47. Chest x-ray was deemed to be stable, however possibly with slight improvement noted on the left with a right-sided pleural effusion remains evident however the patient's oxygenation remains to be about the same. Continue to receive 80 mg IV Lasix every 12 hours and is receiving daily hemodialysis, in which he has been having 2 L removed the past couple of days, hemodialysis yet to occur today. His creatinine is 3.57 (compared to 2.99 yesterday) and BUN 98 (compared to 72 yesterday). Due to this response to diuresis and hemodialysis, no thoracentesis recommended at this point however pleural effusion will need to continue to be monitored. Patient shon off propofol, he is on Precedex at 0.4 mcg/kg/h. Due to his mentation remaining near baseline, neurology had been consulted who ordered an EEG which showed diffuse background slowing of his severe degree which is suggestive for generalized cerebral dysfunction and can be seen with toxic metabolic encephalopathy, as well as the presence of sporadic intermittent, some higher amplitude, sharply contoured waves of generalized distribution. Because of this per neurology's recommendation, patient started on Keppra 500 mg twice daily. The patient does seem to be having some improved mentation, with opening his eyes and responding to commands some of this morning. Spontaneous breathing trial to be attempted today, to see if the patient will be able to come off of mechanical ventilation. If that is unable to occur, discussed with the patient as well as his and one of his daughters that a tracheostomy would be the most appropriate next course of action due to the potential dangers of sustained endotracheal intubation for prolonged period of time. The , while reluctant, seem to acknowledge that this is the appropriate course of action. He remains receiving meropenem 1 g nightly. He remains on TPN 75 mL/h, which she has been on since 11/21 (18), but his enteral feeding has been vital 1.2 AF at 10 mL/h with a goal rate of 80 mL/h. Patient drained 60 mg of serosanguineous fluid from his RAYA. His WBCs increased to 21.5 (compared to 19.3 yesterday), hemoglobin dropped to 7.2 (compared to 7.6 yesterday), hematocrit dropped to 22.0 (compared to 22.9 yesterday) and patient procalcitonin remains elevated at 3.07. 12/10/23 - Patient seen at bedside today, remaining in the ICU, intubated and mechanically ventilated, remaining on assist-control rate of 20, tidal volume 500, FiO2 30%, PEEP of 5 and oxygen saturation of 100%. Patient is on day 28 of his hospital stay (admitted 11/11), day 16 of this current ICU stay (readmit to the ICU 11/24) and day 16 of this current period of time on the ventilator (placed 11/24). ABG showed pO2 93, pCO2 37, pH 7.47, showing evidence of a mild metabolic alkalosis. Chest x-ray today showed stable disease compared to yesterday. He received levo overnight due to atypical blood pressure, patient's TPN was up to 120 due to the change in formula. Patient is scheduled to undergo tracheotomy today (12/09) at 16:30. Per the nurse and the overnight staff patient continues to open his eyes and shows some responsiveness to commands. Per nephrology's recommendation dialysis to be held today due to the patient going for the tracheotomy later, as well as the dip in blood pressure seen after yesterday's dialysis session which required Levophed. Patient's Hgb this morning 6.6, will be given 1 unit today, which will be the second unit he has received during his hospital course. Patient's airway resistance noted to be 3.3 cm/L/s, static lung compliance shown to be 45 mL/cm H2O and dynamic compliance 33 mL/cm H2O. 12/11/23 - Patient seen at the bedside, remaining in the ICU, with a tracheotomy tube and mechanically ventilated while receiving dialysis. Patient remains on assist-control rate of 20, FiO2 30%, PEEP of 5 and has an oxygen saturation of 97%. Patient is on day 29 of the hospital stay (admitted 11/11), day 17 of his current ICU stay (readmitted to the ICU 11/24) and day 17 of his current period of time on the ventilator (placed 11/24). ABG today showed pO2 115, pCO2 38, pH 7.44 continuing to show evidence of a mild metabolic alkalosis. Chest x-ray today showed stable disease. Patient had tracheotomy placed yesterday afternoon (12/09) without any complications. Patient has had 3 consecutive days of attempting spontaneous breathing trials in an effort to wean the patient off the ventilator, all of which failed to this point. Beginning today the patient's antibiotics (meropenem) will be discontinued and we will begin weaning his propofol down from 25 mcg/kg/min. As the patient is weaned off of the propofol, 0.5 Dilaudid and 1 mg IV Ativan to be used every 6 hours as needed. Patient is continuing to receive normal saline 20 cc/h, and has a total of 200 mL of serosanguineous fluid from his RAYA drain. TPN to continue at a rate of 120 mL/h additionally tube feeds, which had been held due to the patient receiving s traight catheter yesterday, will be restarted today with an ultimate goal being to receive enteral nutrition at a rate of 80 mL/h. TPN to continue until able to increase the enteral nutrition to at least 50 mL/h, as per the dietitian's recommendation. Will be exploring the possibility of the patient being moved to select specialty. 12/12/23 - Patient seen at the bedside this morning, in ICU room 253, while receiving and EEG, no significant events overnight. Patient remains with tracheotomy and is mechanically ventilated on assist control with a rate of 20, tidal volume 500, FiO2 30%, PEEP of 5 with an oxygen saturation of 98%. Patient is on day 30 of the hospital stay (admitted 11/11), day 18 of his current ICU stay (readmitted to the ICU 11/24) and day 18 of his current period of time with mechanical ventilation (placed in 11/24). ABG today showed pO2 92, pCO2 36, pH is 7.49 continue to show signs of a combined respiratory and metabolic alkalosis. WBC 17.9, Hgb 7.4, Hct 22.6, PLT 151; sodium 133, potassium 4.0, HCO3 27, BUN 88, creatinine 2.96. Chest x-ray done today continuing to show patchy infiltrate throughout the right lung with layering effusion. Patient is continuing to receive normal saline 20 cc/h, continues to receive Dilaudid 0.5 mg IV push every 6 hours as needed, as well as Ativan 1 mg IV every 6 hours as needed. Patient is no longer maintained on propofol. TPN continues at a rate of 120 mm/h and EN vital AF at 30 mL/h with a goal of 40 mL/h. Once goal is reached, TPN can be discontinued and patient will be switched over to Nepro 50 mL/h. Following the patient having 3 consecutive days of attending spontaneous breathing trials and effort to wean, we will begin trying the patient with CPAP and pressure support in effort to wean, today's trial the patient will be placed on PS 5 and PEEP of 5 for 25-45 minutes, or as he is able to tolerate it. Disc ussed with the patient's the importance of continuing to wean the patient's with trials, in an effort to build up some of the strength in his lungs to better be able to tolerate breathing on his own. Will continue to evaluate for possible placement in a long-term acute care facility. 12/13/23 - Patient seen at the bedside this morning, in ICU room 253, with no significant events overnight noted. Patient remains with tracheotomy and is mechanically ventilated on assist control with a rate of 20, tidal volume 500, FiO2 30%, PEEP of 5 with an oxygen saturation of 98%. Patient is on day 30 one of the hospital stay (admitted to 11/11), day 19 of his current ICU stay (readmitted to the ICU 11/24) and day 19 of his current period of time with mechanical ventilation (placed 11/24). ABG today showed pO2 87, pCO2 36, pH 7.48 continue to show signs of a combined respiratory metabolic alkalosis. WBC 17.3, Hgb 8.0, Hct 25.3, PLT 191; sodium 136, potassium 4.1, BUN 116, creatinine 3.17. This x-ray done today continues to show stable disease. Patient had an EEG completed yesterday (12/11) which showed an abnormal EEG, study being limited because of diffuse myogenic artifact. Background slowing suggestive of severe encephalopathy. Otherwise no appreciable epileptiform discharges, focal slowing, or seizure noted during the exam. Patient continues to receive Dilaudid 0.5 mg IV push every 6 hours as needed, as well as Ativan 1 mg IV every 6 hours as needed. Patient's TPN has been stopped, he is not receiving Nepro at 50 mL/h, which is goal. Patient Solu-Medrol has been discontinued, patient now receiving 30 mg prednisone daily. Patient's trial yesterday with CPAP and pressure support with the patient was sent PS of 5 and PEEP of 5, patient tolerated 40 minutes well it was noted that his respiratory rate increased and his minute ventilation also increased during this time. Will continue with another weaning effort today and continue to reassess how the patient tolerates. He will be receiving hemodialysis today, with the plan to hold over the weekend and then reassess Saturday per nephrology. Additionally IV Lasix has been discontinued on this patient, nephrology did state that he may need to resume receiving the Lasix if the urine output tapers. Progress note dated December 14, 2023. The patient is seen today in room 253. The patient remains on the mechanical v entilator. His settings include volume assist-control, rate 20, tidal volume 500, FiO2 30%, PEEP of 5. Blood gases show pO2 of 76, pCO2 of 36, pH of 7.47. The patient is getting saline at 10 cc an hour, and Nepro at 50 cc an hour which is goal. The patient will go back on pressor support of 5 and CPAP of 5 today. Yesterday, he spent 2-1/2 hours on pressure support. The patient did have a tem perature last night. He discussed some purulent drainage at the wound site. I have asked surgeon to come back and see the patient. In addition, the nurse will get blood, urine, sputum, and wound cultures going. He is not on any antibiotics. We will check a procalcitonin level. White count of 16.7, hemoglobin 8.1, hematocrit 24.5, platelet count is normal. Sodium 135, potassium 3.9, chlorides 103, CO2 24, BUN 106, creatinine 3.04. Calcium is 7.1. Magnesium is 2.0. Urine is yellow, with 1+ protein, 6 WBCs, and rare bacteria. Chest x-ray shows a stable chest x-ray, which is largely unchanged. Progress note dated December 15, 2023. 73-year-old male seen again in room 253. The patient remains on mechanical ventilator. Blood gases show pO2 of 78, pCO2 of 36, pH of 7.47. The patient is getting saline at KVO, and Nepro at 50 cc an hour which is goal. The patient did a spontaneous breathing trial yesterday, and went about 6 hours on PSV 5, CPAP of 5. The patient's procalcitonin level was elevated at 1.92. We added back Zosyn. Yesterday we did sputum, blood, urine, and wound cultures. The patient will have another spontaneous breathing trial today. Current labs include a white count 16.3, hemoglobin 7.5, hematocrit 22.6, and a normal platelet count. Sodium 138, potassium 3.5, chlorides 105, CO2 24, BUN 125, and creatinine 3.22. Glucose is 220. Calcium is 6.9. Chest x-ray shows a right- sided pleural effusion, and some similar changes, to the previous x-ray. This is a 73-year-old white male with history of chronic abdominal pain for the last 8 months has been treated with Protonix 40 mg daily for the last 3 months with no improvement. Patient had a 22 pound weight loss in the last [address] of the abdomen and pelvis 3 weeks ago showed thickening of the antral wall with pathological adenopathy posterior to the stomach suspicious of neoplasm. Today the patient underwent elective upper endoscopy to evaluate further, patient received IV sedation by anesthesia endoscope was inserted into the mouth, esophagus was intubated without any difficulty there was evidence of large amount of liquid and solid food noted in the stomach suggestive of gastric out let obstruction. Scope could not be advanced through the pylorus, however in the prepyloric area there was a large superficial ulceration identified with multiple biopsies were done from this area. The body cardia and fundus could not adequately visualize because of large amount of retained food in the stomach. Scope was withdrawn back to the stomach and upon careful examination the mucosa of the antrum body and cardia as well as the fundus appeared normal. Procedure was being performed and biopsies were done patient threw up and subsequently became hypoxic there was clearly evidence of witnessed aspiration anesthesia intubated the patient, procedure was terminated, and the patient was transferred to the ICU, this consult was initiated. Patient is now on assist- control rate of 20 tidal volume 500 FiO2 70% PEEP of 10 ABG is pending, earlier ABG showed profound hypoxia patient is on propofol at 50 mcg/kg/min, next ABG is pending. Chest x-ray showed chronic changes without evidence of acute pulmonary disease. 12/20/2023, the patient is being seen for a follow-up. More alert and awake compared to yesterday. He is able to move his fingers and toes on today's evaluation. Following commands. Nevertheless, his J tube has been clogged and was unable to utilize the tube that has been some leaks around the tube. No abdominal distention. No nausea or emesis. Hemodynamically stable. Will undergo hemodialysis today. He remains on pressure control mode of mechanical ventilation at rate of 16, pressure of 10, +5 PEEP with an FiO2 of 30%. Chest x-ray from today is essentially unchanged with a stable cavity in his right upper lobe. White cell count of 15.7, hemoglobin 7.2, platelet count is 203, blood gas showed a pH of 7.49 with a pCO2 of 33 and pO2 of 73. BUN is 88 with a creatinine 1.89 and sodium is at 141 with a potassium level of 4.1. He is producing adequate amount of urine output. Fluid balance has been -900 cc over the past 24 hours. Normotensive. Remains on a combination of Zosyn and daptomycin. Remains on Levemir insulin 24 units daily. This is currently on hold as the patient has not been able to obtain enteral feeding. Wound VAC still in place. 12/21/2023, the patient remains on the mechanical ventilator. Overnight, the patient experienced discomfort in his abdomen and he was restless. Based on that, the patient was placed on a higher dose of Precedex which is currently running at 0.6 mcg/kg/h. The patient was also asynchronous with the mechanical ventilator and based on that, the patient was switched to an AC mode and currently is at a rate of 16, tidal volume of 400, FiO2 of 30% with a PEEP of 5. The patient is adequately sedated for now. Chest x-ray remains unchanged. Tracheostomy tube in place and the patient is having increased amount of respiratory secretions. J tube needs to be replaced today and this will be done by his general surgery as the tube remains clogged. Urine output is low order of 30 cc an hour. Afebrile. Remains on Zosyn and daptomycin. White cell count is 16.9, hemoglobin 7.4 and a platelet count of 280. Blood gas from today showed a pH of 7.46 with a pCO2 of 36 and pO2 of 82. Sodium levels of 144, BUN is 19 with a creatinine of 2.2 and a serum bicarb is at 23. The abdominal wound remains unchanged. RAYA drain is serosanguineous. 12/22/2023, patient remains on Precedex at 0.4 mcg/kg/min. Arousable. Communicates. Profoundly weak. Remains on the mechanical ventilator with a rig ht lung abscess. SIMV mode mode rate of 16, tidal volume of 400, FiO2 30% with a PEEP of 5, with a pressure support of 8. Blood gas showed a pH of 7.46 with a pCO2 of 32 and a pO2 of 82. Chest x-ray remains unchanged with a right upper lobe cavitating lesion/opacity and a suspected lung abscess. This is rated Pseudomonas and the patient remains on IV Zosyn. He remains on daptomycin. Urine output is in order of 50 cc an hour.. The J-tube was unplugged yesterday. Nevertheless, the tube itself is malfunctioning and there is drainage around the tube requiring dressing changes the dressings being soakedConstantly. The patient's white cell count is 12.3 with a hemoglobin 7.7. Sodium is at 149, BUN 91 with a creatinine of 2.3. Bicarb is at 20. Undergoing hemodialysis periodically. Last hemodialysis was on 12/21/2023. Currently NPO. Abdominal wound is clean and the patient has a wound VAC in place. RAYA drain output is serosanguineous. Patient was seen today on 12/23/2023, remains in the ICU, intubated and mechanically ventilated. Patient is on IMV with pressure support/IMV 16, pressure support of 8, tidal volume 400, PEEP of 5. Patient seems to be doing well with that kind of mode of mechanical ventilation, ABG showed a pO2 of 76 pCO2 28 pH of 7.50. I changed his rate from 16-8 kept him otherwise on the same ventilator settings. Plan to gradually go down on the IMV rate until we can get him on pressure support of 8 and CPAP. Patient is requiring Precedex at 0.4 m cg/kg/h, he is on D5W at 50 cc/h. Remains on antibiotics in the form of daptomycin and Zosyn, chest x-ray continues to show bilateral airspace disease and right upper lobe lung abscess. Continues to have a bit of a leak from his J-tube being addressed by surgery has a wound VAC, and he had a RAYA drain. Mentation arce the patient is a bit more appropriate, opens his eyes, follows very simple instructions, seems to comprehend. Patient has a left brachial PICC line, he also has a left groin hemodialysis catheter. WBC count is 10.1 hemoglobin is 7 sodium is 149 potassium 4 chloride is 121 BUN is 86 creatinine 2.31. Blood sugar is 173. Remains on enteral feeding via J-tube, a bit of a leak is noted, and surgery is to address this. Sputum cultures have grown Klebsiella and Pseudomonas and remains on proper antibiotics Patient was seen and examined today on 12/24/2023, patient remains in the ICU, and mechanically ventilated. On IMV mode of 8 pressure support of 8 tidal volume 400 FiO2 30% and PEEP of 5 ABG showed a pO2 of 81 pCO2 32 pH of 7.45. Patient remains on daptomycin and Zosyn, remains on Precedex at 0.4 mcg/kg/h intermittently receiving Dilaudid for pain. Feeding arce is presently on hold, patient had a leak around the jejunostomy tube, surgery is recommending a trick le feed or TPN if could not use the J-tube. Patient is arousable follows simple instructions, and today I had a chance to get rid of the IMV mode, and I am recommending a pressure support of 8 and CPAP. For the last few hours the patient has been tolerating this mode of mechanical ventilation, however he is not quite ready to go to [facility] at this point. Chest x-ray continues to show significant opacity in the right upper lobe and airspace disease in the right lower lobe. Previously patient had a CT of the chest showing right upper lobe abscess. Again he remains on Zosyn and daptomycin.Labs today showed WBC count of 10.6 hemoglobin 7.8 sodium is 147, patient is now on D5W at 100 cc an hour his bicarb is 19 BUN 74 creatinine 2.08, gradually improving, his last hemodialysis was on the , nephrology is considering removing his dialysis catheter in the left groin and I believe that is appropriate patient was seen and examined today on 12/25/2023, remains in the ICU, intubated and mechanically ventilated. Patient had to be placed back on assist-control mode of mechanical ventilation yesterday, mostly because he developed significant agitation and restlessness, and ongoing persistent cough with some air leak from the cough of that tracheostomy. Patient had to be sedated and he was placed on propofol and he remains on propofol at 50 mcg/kg/min. Maximal dose of Precedex yesterday could not calm him down, hence we had to transition him from pressure support/CPAP mode of mechanical ventilation to assist-control mode of mechanical ventilation and fully sedated him with propofol replacing Precedex. Today the patient is sedated, he is on assist-control rate of 16 ti sierra volume 400 FiO2 30% PEEP of 5 ABG showed a pO2 of 98 pCO2 30 pH of 7.45 chest x-ray is basically the same showing significant airspace disease in the right upper lobe and right lower lobe. Remains on daptomycin and Zosyn. His IV fluid was transitioned to D5 4 5 from D5W sodium today is 141. His urine output is about 40 to 50 cc/h, renal profile is improving with steady trending of creatinine down. Patient continues to have leakage around the jejunostomy tube. Patient is being followed by surgery no specific recommendation made except to continue the same and except the leak as it isLabs today showed WBC count of 11.5 hemoglobin 8.2 basic metabolic profile is normal BUN is 60 creatinine down to 1.81 Patient seen today on 12/26/2023, remains in the ICU intubated mechanically ventilated sedated patient is on assist-control rate of 16 tidal volume 400 FiO2 30% PEEP of 5 ABG showed a pO2 of 82 pCO2 34 pH of 7.43. Patient is now on TPN at 30 cc/h propofol at 50 mcg/kg/min hemoglobin is down to 6.8 today and he is receiving a unit of packed RBCs. His IV fluids at 50 cc/h in the form of 0.9 normal saline. He was last night on a small dose of norepinephrine at 0.01 mcg/kg/min and is presently on hold. Antibiotics arce patient is on Zosyn daptomycin and Eraxis. Chest x-ray continues to show significant airspace disease involving the right upper lobe and right lower lobe not much of a change noted on the chest x-ray. Clinically the patient is about the same, today I plan to discontinue propofol, arrange for the patient to go on Precedex, and assess mental status off sedation. If tolerated, may transition the patient again to pressure support and CPAP type of mechanical ventilation, but he is not ready to go to that transition yet. WBC count is 11.6 hemoglobin 6.8. ABG today showed a pO2 of 82 pCO2 34 pH of 7.43 potassium is 3.3 being addressed accordingly BUN is 53 creatinine 1.84 Patient was evaluated today on 12/27/2023, remains in the ICU intubated and mechanically ventilated. Patient is presently on IMV mode of mechanical ventilation with pressure support rate of 16 pressure support 14 tidal volume 400 FiO2 30% and PEEP of 5 ABG showed a pO2 of 99 pCO2 31 pH of 7.44. Intermittently the patient has been experiencing episodes of extreme agitation and restlessness he is on Precedex at 0.5 mcg/kg/h. Patient is on IV fluid 0.9 normal saline at 50 cc/h and is also receiving TPN. Remains on Eraxis daptomycin and Zosyn patient is intermittently requiring Dilaudid, Ativan does not seem to help his agitation and restlessness. But Dilaudid does hence I would recommend 0.5 mg every 2-3 hours as needed for agitation. Patient has good urine output roughly about 100 cc/h. Continues to have leakage around the jejunostomy tube, and patient is undergoing the J-tube exchange today. Family is at bedside, seems to be quite anxious about his overall condition, and I explained to the that we are doing the best we can considering his critical illness situation and critical illness polyneuropathy. Patient is profoundly weak, and weaning the patient from mechanical ventilation is almost impossible. At least not at this point yet WBC count is 10.9 hemoglobin is 8.1 basic metabolic profile is normal BUN is 46 creatinine 1.90 patient has been off hemodialysis since the . Chest x-ray continues to show stable findings with right upper lobe opacity and right lower lobe opacity and possibly a small right-sided pleural effusion Was evaluated today on 12/28/2023, patient remains in the ICU, intubated and mechanically ventilated, on IMV mode of mechanical ventilation rate set at 16 he is on pressure support of 14 tidal volume 400 FiO2 30% and PEEP of 5 ABG showed a pO2 of 113 pCO2 31 pH of 7.43. No major events overnight, patient is still requiring Precedex at 0.7 mcg/kg/h. He is on TPN as we could not use his jejunostomy tube, no jejunostomy tube was done yesterday, IV fluid is 0.9 at 50 cc/h remains on TPN at 65 cc/h patient is on Eraxis daptomycin and Zosyn. Chest x-ray is showing improvement in his right upper lobe airspace disease/lung abscess and there is a slight improvement in his right lower lobe opacity. Kathryn ent is arousable but does not follow any instructions, patient gets agitated easily if aroused and he started gagging on the tracheostomy tube. Family is at bedside, again updated on his condition. WBC count is 7.6 hemoglobin 7.9. Basic metabolic profile is normal BUN is 45 creatinine down to 1.51 patient has not had any dialysis since 12/17, his renal functioning and urine output continues to improve, hence I am strongly recommending removing his dialysis catheter Patient was seen on 12/29/2023, remains intubated and mechanically ventilated, in the ICU, on IMV of 16 tidal volume 400 FiO2 30% PEEP of 5 ABG showed a pO2 of 105 pCO2 31 pH of 7.45. Remains on Precedex at 0.8 mcg/kg/h, remains on TPN at 65 cc/h IV fluid 0.45 at 50 mL/h remains on multiple antibiotics and antifungal including Eraxis daptomycin and Zosyn. His hemodialysis catheter has been removed, urine output has been excellent renal functioning is improving chest x- ray is showing improvement in his right upper lobe airspace disease/pulmonary abscess. Right lower lobe seems about the same with chronic opacity and possibly some small right-sided pleural effusion. Family is at bedside, patient is arousable but does not follow any instructions. Gets extremely restless and agitated easily hence patient is receiving Dilaudid which seems to be working much better for this patient than benzodiazepines. And we are trying to avoid Ativan, trying to avoid any propofol as much as possible. I believe his drainage from the jejunostomy tube is becoming less and less, hence we could start considering early next week arrangement to possibly transfer the patient to a select care specialty. In the meantime I am recommending that we go down on the IMV rate by 2 every 2 hours the goal is pressure support of 14 and IMV of 8. Progress note dated December 30, 2023. This is a 73-year-old male who is now been in the hospital for 48 days. The patient was admitted back on November 11. Currently, he is seen in the intensive care unit, room 253. The patient is currently on synchronized IMV mode, rate of 8, pressure support of 14, PEEP of 5, FiO2 30%, and a backup tidal volume of 400 cc. Blood gases showed a pO2 of 87, pCO2 of 31, and a pH of 7.42. The patient will be switched back to the volume assist-control mode, as he is not ready to be weaned. His minute volume is nearly 18 L/min. He is breathing at a rate of about 40 times per minute. He currently is on Precedex 0.8 mics per kilogram per minute, TPN at 90 cc an hour, and half-normal saline at 50 cc an hour. The patient continues on Zerbaxa, Eraxis, and daptomycin. White count 11.5, hemoglobin 8.1, hematocrit 25, platelet count of 78,000. Sodium 142, potassium 4.2, chlorides 119, CO2 20, BUN 42, and creatinine 1.22. Glucose is 178. Albumin is 1.9. Sputum from December 24 shows evidence of Citrobacter freundii and Pseudomonas aeruginosa. Blood cultures from the same day were positive for Staphylococcus. Chest x-ray shows extensive pleural-parenchymal opacities, in both lungs, and the chest x-ray is largely unchanged from the pre vious days x-ray. Objective - Vital Signs Vital signs: Vital Signs Temp 98.2 F 12/30/23 04:00 Pulse 80 12/30/23 11:22 Resp 23 12/30/23 07:00 BP 146/94 12/30/23 07:00 Pulse Ox 97 12/30/23 07:00 FiO2 30 12/30/23 07:54 Intake & Output 12/29/23 12/30/23 12/30/23 18:59 06:59 18:59 Intake Total 2212.400 1472.508 237.774 Output Total 2755 1720 100 Balance -542.600 -247.492 137.774 Weight 101.6 kg Intake: IV 1200 600 50 0.45 600 600 50 Piperacillin-Tazobactam 3 100 .375 gm In Sodium Chloride 0.9% 100 ml @ 25 mls/hr IVPB Q12HR [facility] Rx #:[id number] Potassium Phosphate 10 500 mmol In Sodium Chloride 0 .9% 250 ml @ 125 mls/hr IV ONCE ONE Rx#:[id number] Intake, IV Titration 197.400 92.508 122.774 Amount Dexmedetomidine/0.9% NaCl 197.400 92.508 119.218 (Pmx) 400 mcg In Empty Bag 1 bag @ 0.2 MCG/KG/HR 4.94 mls/hr IV .[id number] [facility] Rx#:[id number] propofoL 1,000 mg In 3.556 Empty Bag 1 bag @ 15 MCG/ KG/MIN 9.144 mls/hr IV . [id number] [facility] Rx#:[id number] TPN/PPN 715 780 65 TPN 715 780 65 Albumin 100 Albumin Human 25% 50 ml 100 In Empty Bag 1 bag @ 50 mls/hr IVPB Q1H [facility] Rx#: [id number] Output: Gastric Drainage 65 Drainage 480 70 Right Abdomen 30 70 wound vac 450 Urine 2210 1650 100 Other: Voiding Method Indwelling Catheter Indwelling Catheter ABP, PAP, CO, CI - Last Documented Arterial Blood Pressure 150/62 - Exam No acute distress, somewhat lethargic, in no acute distress, with a midline tracheostomy tube. HEENT examination is grossly unremarkable. Neck supple. Full range of motion. No adenopathy thyromegaly or neck vein distention. Midline tracheostomy tube noted. Cardiovascular examination reveals regular rhythm rate. S1-S2 normal. No S3 or S4. No discernible murmur noted. Lungs reveal mild scattered rhonchi. No wheezes or crackles. Breath sounds equal. Abdomen soft, without bowel sounds. Midline incision, there is for the most part intact, although there is some purulence noted, with some minimal dehiscence Extremities are intact. No cyanosis clubbing or edema. Skin is without rash or lesion. Neurologic examination is difficult to assess. - Labs CBC & Chem 7: 12/30/23 05:25 12/30/23 05:25 Labs: Abnormal Lab Results - Last 24 Hours (Table) 12/29/23 12/29/23 12/29/23 Range/Units 12:30 17:53 21:30 WBC (3.8-10.6) k/uL RBC (4.30-5.90) m/uL Hgb (13.0-17.5) gm/dL Hct (39.0-53.0) % RDW (11.5-15.5) % Plt Count (150-450) k/uL Neutrophils # (1.3-7.7) k/uL ABG pCO2 (35-45) mmHg ABG HCO3 (21-25) mmol/L ABG O2 Saturation (94-97) % Hemoglobin (13.0-17.5) gm/dL Chloride (98-107) mmol/L Carbon Dioxide (22-30) mmol/L BUN (9-20) mg/dL Glucose (74-99) mg/dL POC Glucose (mg/dL) 220 H 220 H 161 H (70-110) mg/dL Calcium (8.4-10.2) mg/dL Phosphorus (2.5-4.5) mg/dL Total Bilirubin (0.2-1.3) mg/dL Total Protein (6.3-8.2) g/dL Albumin (3.5-5.0) g/dL 12/30/23 12/30/23 12/30/23 Range/Units 05:25 05:25 05:25 WBC 11.5 H (3.8-10.6) k/uL RBC 2.74 L (4.30-5.90) m/uL Hgb 8.1 L (13.0-17.5) gm/dL Hct 25.0 L (39.0-53.0) % RDW 18.4 H (11.5-15.5) % Plt Count 78 L (150-450) k/uL Neutrophils # 8.5 H (1.3-7.7) k/uL ABG pCO2 31 L (35-45) mmHg ABG HCO3 20 L (21-25) mmol/L ABG O2 Saturation 97.6 H (94-97) % Hemoglobin 7.9 L (13.0-17.5) gm/dL Chloride 119 H (98-107) mmol/L Carbon Dioxide 20 L (22-30) mmol/L BUN 42 H (9-20) mg/dL Glucose 178 H (74-99) mg/dL POC Glucose (mg/dL) (70-110) mg/dL Calcium 6.9 L (8.4-10.2) mg/dL Phosphorus 2.3 L (2.5-4.5) mg/dL Total Bilirubin 2.0 H (0.2-1.3) mg/dL Total Protein 5.3 L (6.3-8.2) g/dL Albumin 1.9 L (3.5-5.0) g/dL Microbiology - Last 24 Hours (Table) 12/28/23 12:22 Catheter Tip Culture - Preliminary Catheter Tip 12/25/23 12:52 Blood Culture Gram Stain - Final Blood Blood Culture - Final Staphlyococcus [email or web address] Molecular ID 12/25/23 16:49 Gram Stain - Final Sputum Sputum Culture - Final Citrobacter freundii Pseudomonas aeruginosa Assessment and Plan Assessment: Acute hypoxemic respiratory failure with failure to wean from mechanical ventilation, S/P tracheostomy on December 10, 2023. Respiratory failure, requiring reintubation, on November 25, 2023. Acute hypoxic respiratory failure requiring intubation/mechanical ventilation secondary to aspiration during EGD on 11/12/2023. Patient was extubated on 11/02. S/P J-tube placement 11/16/2023, which continues to leak. Septic shock. Acute kidney injury secondary to sepsis, and ATN. Acute bowel obstruction, diagnosed via CT scan, November 24, 2023. Acute aspiration pneumonia. Acute aspiration during upper endoscopy most likely secondary to gastric outlet obstruction secondary to non-Hodgkin's lymphoma. Chronic abdominal pain, secondary to B-cell lymphoma. Unexplained weight loss most likely secondary non-Hodgkin's lymphoma involving the stomach. Paroxysmal atrial fibrillation. Chronic anemia. Plan: Plan dated November 21, 2023. The patient is seen today in room 517. The patient is on 3 L of oxygen. He continues on Zosyn. Continues on tube feeds. He had a CT scan of the abdomen and pelvis. His respiratory status is improved. We will continue to follow. Prognosis is guarded. Labs, x-rays, medications are reviewed. The patient is apparently scheduled for an outpatient PET scan. Plan dated November 22, 2023. The patient appears very stable. His is in the room with him. Labs, x- rays, and medications are reviewed. The patient continues on Zosyn. Resting room air saturation was 89%. Chest CT, revealed bilateral patchy and basilar infiltrates. We will continue to follow make recommendations along the way. Prognosis is guarded. The patient was diagnosed with a gastric outlet obstruction, secondary to non-Hodgkin's lymphoma. Plan dated November 23, 2023. The patient is seen today in room 517. He is resting comfortably. He continues on saline at 10 cc an hour. He is getting tube feedings with Pivot at 20 cc an hour. He has been weaned down to 2 L of oxygen. He continues on Zosyn. Labs, x-rays, and all medications are reviewed. Prognosis is guarded. We will continue to follow. Plan dated November 24, 2023. The patient will be admitted to the intensive care unit. I believe he deserves to be an ICU patient. I did speak to the surgeon. Labs, x-rays, and medications are reviewed. No additional recommendations are made. Prognosis is guarded. The patient has now been in the hospital for 12 days. We will continue to follow. He continues on Zosyn. Plan dated December 14, 2023. The patient is seen today in room 253. Currently, the patient is on the ventilator. He will have another PSV/CPAP trial. Apparently yesterday, he went for about 2-1/2 hours before he required to be placed back on the ventilator. The patient is getting saline at 10 cc an hour, and Nepro tube feedings at 50 cc an hour, which is goal. The patient had a fever, and will be recultured. In addition, the midline incision in the abdomen, shows some evidence of purulence, and will have a surgeon, take a look at that. Currently, the patient is not on any antibiotics. We will recheck a procalcitonin level. One of the family members was in the room, and was updated. Plan dated December 15, 2023. The patient actually spent about 6 hours on pressor support yesterday. The patient will have another spontaneous breathing trial today. The patient remai ns off of all sedation. He is getting Ativan and Dilaudid as needed. He is receiving tube feedings at goal. Labs, x-rays, and medications are reviewed. The repeat procalcitonin level was elevated at 1.92. We added Zosyn empirically. He had pancultures done yesterday. Labs, x-rays, and all med ications are reviewed. Prognosis is guarded. An update was given to the daughter and to the right. Dictation was produced using [employer] software. Please excuse any grammatical, word or spelling errors. Plan dated December 30, 2023. The patient is seen today in room 253. The patient has now been in the hospital for 48 days. He was admitted way back on November 11. The patient currently is not ready to be weaned, given his high respiratory rate, and high minute volume. The patient is converted back to volume assist-control. In addition, the patient continues on Zerbaxa, Eraxis, and daptomycin, because of recent infections, including Pseudomonas, and Citrobacter, as well as Staphylococcus. Labs, x-rays, and medications are reviewed. The patient will continue on a small dose of propofol, Dilaudid as needed, and Ativan. Dexmedetomidine which is currently running was to be discontinued. Additional recommendations and suggestions are forthcoming. Prognosis is poor in my opinion. The patient remains a full code. The remains hopeful. Dictation was produced using [employer] software. Please excuse any grammatical, word or spelling errors. Time with Patient: Greater than 30
[2023-12-30 12:27] LABS: Glucose,Whole Blood 222 mg/dL (70-110)
--- NOTE | 2023-12-30 12:35 | P.PN ---
Subjective Patient is seen for follow-up for acute kidney injury. Patient underwent exploratory laparotomy with small bowel obstruction NG tube replacement Se ptember 2023. Nonoliguric. Started on hemodialysis November 29, 2023. Last dialysis December 18, 2023. Status post tracheostomy December 10, 2023. Renal function continues to improve. Tube feeds currently held. Receiving TPN. FiO2 at 30%. Family is present at bedside. Objective - Vital Signs Vital signs: Vital Signs Temp 100.6 F H 12/30/23 08:00 Pulse 86 12/30/23 11:39 Resp 38 H 12/30/23 11:00 BP 102/62 12/30/23 11:00 Pulse Ox 95 12/30/23 11:00 FiO2 30 12/30/23 11:23 Intake & Output 12/29/23 12/30/23 12/30/23 18:59 06:59 18:59 Intake Total 2212.400 1472.508 811.062 Output Total 2755 1720 575 Balance -542.600 -247.492 236.062 Weight 101.6 kg Intake: IV 1200 600 250 0.45 600 600 250 Piperacillin-Tazobactam 3 100 .375 gm In Sodium Chloride 0.9% 100 ml @ 25 mls/hr IVPB Q12HR [facility] Rx #:[id number] Potassium Phosphate 10 500 mmol In Sodium Chloride 0 .9% 250 ml @ 125 mls/hr IV ONCE ONE Rx#:[id number] Intake, IV Titration 197.400 92.508 161.062 Amount Dexmedetomidine/0.9% NaCl 197.400 92.508 152.934 (Pmx) 400 mcg In Empty Bag 1 bag @ 0.2 MCG/KG/HR 4.94 mls/hr IV .[id number] [facility] Rx#:[id number] propofoL 1,000 mg In 8.128 Empty Bag 1 bag @ 15 MCG/ KG/MIN 9.144 mls/hr IV . [id number] [facility] Rx#:[id number] TPN/PPN 715 780 400 TPN 715 780 400 Albumin 100 Albumin Human 25% 50 ml 100 In Empty Bag 1 bag @ 50 mls/hr IVPB Q1H [facility] Rx#: [id number] Output: Gastric Drainage 65 Drainage 480 70 Right Abdomen 30 70 wound vac 450 Urine 2210 1650 575 Other: Voiding Method Indwelling Catheter Indwelling Catheter ABP, PAP, CO, CI - Last Documented Arterial Blood Pressure 117/51 - Exam patient is on the vent. Examination of the heart S1 and S2 Examination of the lungs bilateral breath sounds are heard Abdomen is soft dressed, RAYA drain noted Examination of lower extremities shows edema 1+ bilaterally in upper and lower extremities. - Labs CBC & Chem 7: 12/30/23 05:25 12/30/23 05:25 Labs: Abnormal Lab Results - Last 24 Hours (Table) 12/29/23 12/29/23 12/29/23 Range/Units 12:30 17:53 21:30 WBC (3.8-10.6) k/uL RBC (4.30-5.90) m/uL Hgb (13.0-17.5) gm/dL Hct (39.0-53.0) % RDW (11.5-15.5) % Plt Count (150-450) k/uL Neutrophils # (1.3-7.7) k/uL ABG pCO2 (35-45) mmHg ABG HCO3 (21-25) mmol/L ABG O2 Saturation (94-97) % Hemoglobin (13.0-17.5) gm/dL Chloride (98-107) mmol/L Carbon Dioxide (22-30) mmol/L BUN (9-20) mg/dL Glucose (74-99) mg/dL POC Glucose (mg/dL) 220 H 220 H 161 H (70-110) mg/dL Calcium (8.4-10.2) mg/dL Phosphorus (2.5-4.5) mg/dL Total Bilirubin (0.2-1.3) mg/dL Total Protein (6.3-8.2) g/dL Albumin (3.5-5.0) g/dL 12/30/23 12/30/23 12/30/23 Range/Units 05:25 05:25 05:25 WBC 11.5 H (3.8-10.6) k/uL RBC 2.74 L (4.30-5.90) m/uL Hgb 8.1 L (13.0-17.5) gm/dL Hct 25.0 L (39.0-53.0) % RDW 18.4 H (11.5-15.5) % Plt Count 78 L (150-450) k/uL Neutrophils # 8.5 H (1.3-7.7) k/uL ABG pCO2 31 L (35-45) mmHg ABG HCO3 20 L (21-25) mmol/L ABG O2 Saturation 97.6 H (94-97) % Hemoglobin 7.9 L (13.0-17.5) gm/dL Chloride 119 H (98-107) mmol/L Carbon Dioxide 20 L (22-30) mmol/L BUN 42 H (9-20) mg/dL Glucose 178 H (74-99) mg/dL POC Glucose (mg/dL) (70-110) mg/dL Calcium 6.9 L (8.4-10.2) mg/dL Phosphorus 2.3 L (2.5-4.5) mg/dL Total Bilirubin 2.0 H (0.2-1.3) mg/dL Total Protein 5.3 L (6.3-8.2) g/dL Albumin 1.9 L (3.5-5.0) g/dL Microbiology - Last 24 Hours (Table) 12/28/23 12:22 Catheter Tip Culture - Preliminary Catheter Tip 12/25/23 12:52 Blood Culture Gram Stain - Final Blood Blood Culture - Final Staphlyococcus pettenkoferi Molecular ID 12/25/23 16:49 Gram Stain - Final Sputum Sputum Culture - Final Citrobacter freundii Pseudomonas aeruginosa Assessment and Plan Assessment: 1. Acute kidney injury secondary to ATN secondary to septic shock. Creatinine 0.86 on admission and up to 5.38 dated November 29, 2023. nonoliguric. UA fairly benign. No hydronephrosis noted on imaging. Started hemodialysis on 11/29/2023 for worsening volume status and acute kidney injury. Renal function has improved and dialysis catheter was discontinued on 12/28/2023 2. Perforated small bowel status post exploratory laparotomy with abdominal washout, small bowel resection and J-tube replacement November 25, 2023. 3. A-fib with RVR. s/p amiodarone drip. 4. Recently diagnosed gastric B-cell lymphoma. 5. Septic shock. 6. Hypokalemia status post replacement. 7. Hypophosphatemia, being supplemented in TPN 9. Hypernatremia, status post D5W and improved. Plan: continue with TPN. Replace phosphorus in TPN. Can discontinue half normal saline.
--- NOTE | 2023-12-30 13:43 | P.PN ---
Subjective Progress Note Date: 12/30/23 CHIEF COMPLAINT: Abdominal pain HISTORY OF PRESENT ILLNESS: Patient remains in the ICU on mechanical vent ilation. Has tracheostomy. Patient continues to have leaking from the J-tube. J-tube is currently to drainage and has bilious output. Tube feeds are on hold. He has TPN for nutrition support. Afebrile. WBC up from 7.7 to 11.5. Patient had wound VAC changed yesterday due to losing suction. PHYSICAL EXAM: VITAL SIGNS: Reviewed. GENERAL: no acute distress. HEENT: Tracheostomy site clean dry and intact ABDOMEN: Soft. Nondistended. Midline incision with wound VAC in place and intact. J-tube with bilious drainage noted. Skin is irritated and erythematous from drainage. Sutures are intact. ASSESSMENT: 1. 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 Status post J-tube placement and revision for small bowel obstruction 2. Abdominal wound dehiscence status post wound VAC placement 3. Status post tracheostomy PLAN: -At this time no plan to exchange J-tube -Keep J-tube to drainage -Continue to hold tube feeds -Continue wound VAC -Continue TPN for nutrition support -Continue zinc barrier cream around J-tube Physician Logistics Lead note has been reviewed by physician. Signing provider agrees with the documented findings, assessment, and plan of care. Attestation Patient seen and examined at bedside. Discussed case with . Continue curre nt management. Some of the output around the J-tube site has been decreasing. No plan to exchange J-tube at this time. Continue TPN. Zachary Ruiz, Objective - Vital Signs Vital signs: Vital Signs Temp 100.6 F H 12/30/23 08:00 Pulse 86 12/30/23 11:39 Resp 38 H 12/30/23 11:00 BP 102/62 12/30/23 11:00 Pulse Ox 95 12/30/23 11:00 FiO2 30 12/30/23 11:23 Intake & Output 12/29/23 12/30/23 12/30/23 18:59 06:59 18:59 Intake Total 2212.400 1472.508 811.062 Output Total 2755 1720 575 Balance -542.600 -247.492 236.062 Weight 101.6 kg 101.6 kg Intake: IV 1200 600 250 0.45 600 600 250 Piperacillin-Tazobactam 3 100 .375 gm In Sodium Chloride 0.9% 100 ml @ 25 mls/hr IVPB Q12HR [facility] Rx #:[id number] Potassium Phosphate 10 500 mmol In Sodium Chloride 0 .9% 250 ml @ 125 mls/hr IV ONCE ONE Rx#:[id number] Intake, IV Titration 197.400 92.508 161.062 Amount Dexmedetomidine/0.9% NaCl 197.400 92.508 152.934 (Pmx) 400 mcg In Empty Bag 1 bag @ 0.2 MCG/KG/HR 4.94 mls/hr IV .[id number] [facility] Rx#:[id number] propofoL 1,000 mg In 8.128 Empty Bag 1 bag @ 15 MCG/ KG/MIN 9.144 mls/hr IV . [id number] [facility] Rx#:[id number] TPN/PPN 715 780 400 TPN 715 780 400 Albumin 100 Albumin Human 25% 50 ml 100 In Empty Bag 1 bag @ 50 mls/hr IVPB Q1H [facility] Rx#: [id number] Output: Gastric Drainage 65 Drainage 480 70 Right Abdomen 30 70 wound vac 450 Urine 2210 1650 575 Other: Voiding Method Indwelling Catheter Indwelling Catheter ABP, PAP, CO, CI - Last Documented Arterial Blood Pressure 117/51 - Labs CBC & Chem 7: 12/30/23 05:25 12/30/23 05:25 Labs: Abnormal Lab Results - Last 24 Hours (Table) 12/29/23 12/29/23 12/30/23 Range/Units 17:53 21:30 05:25 WBC (3.8-10.6) k/uL RBC (4.30-5.90) m/uL Hgb (13.0-17.5) gm/dL Hct (39.0-53.0) % RDW (11.5-15.5) % Plt Count (150-450) k/uL Neutrophils # (1.3-7.7) k/uL ABG pCO2 (35-45) mmHg ABG HCO3 (21-25) mmol/L ABG O2 Saturation (94-97) % Hemoglobin (13.0-17.5) gm/dL Chloride 119 H (98-107) mmol/L Carbon Dioxide 20 L (22-30) mmol/L BUN 42 H (9-20) mg/dL Glucose 178 H (74-99) mg/dL POC Glucose (mg/dL) 220 H 161 H (70-110) mg/dL Calcium 6.9 L (8.4-10.2) mg/dL Phosphorus 2.3 L (2.5-4.5) mg/dL Total Bilirubin 2.0 H (0.2-1.3) mg/dL Total Protein 5.3 L (6.3-8.2) g/dL Albumin 1.9 L (3.5-5.0) g/dL 12/30/23 12/30/23 12/30/23 Range/Units 05:25 05:25 12:24 WBC 11.5 H (3.8-10.6) k/uL RBC 2.74 L (4.30-5.90) m/uL Hgb 8.1 L (13.0-17.5) gm/dL Hct 25.0 L (39.0-53.0) % RDW 18.4 H (11.5-15.5) % Plt Count 78 L (150-450) k/uL Neutrophils # 8.5 H (1.3-7.7) k/uL ABG pCO2 31 L (35-45) mmHg ABG HCO3 20 L (21-25) mmol/L ABG O2 Saturation 97.6 H (94-97) % Hemoglobin 7.9 L (13.0-17.5) gm/dL Chloride (98-107) mmol/L Carbon Dioxide (22-30) mmol/L BUN (9-20) mg/dL Glucose (74-99) mg/dL POC Glucose (mg/dL) 222 H (70-110) mg/dL Calcium (8.4-10.2) mg/dL Phosphorus (2.5-4.5) mg/dL Total Bilirubin (0.2-1.3) mg/dL Total Protein (6.3-8.2) g/dL Albumin (3.5-5.0) g/dL Microbiology - Last 24 Hours (Table) 12/28/23 12:22 Catheter Tip Culture - Preliminary Catheter Tip 12/25/23 12:52 Blood Culture Gram Stain - Final Blood Blood Culture - Final Staphlyococcus pettenkoferi Molecular ID
--- NOTE | 2023-12-30 15:46 | P.PN ---
Subjective Progress Note Date: 12/30/23 This is a 73-year-old male patient of Dr. Ibanez we assumed care of this patient today. Patient has had a prolonged hospital stay today is 45. Patient initially presented to the hospital on November 11 for a scheduled upper endoscopy as part of an evaluation for chronic epigastric pain which has been ongoing over the last 8 months. Patient has also had a 22 pound weight loss. He had a CT abdomen pelvis done outpatient which revealed thickening of the antral wall with pathological adenopathy posterior to the stomach suspicious for neoplasm. Patient underwent EGD with biopsy. The scope could not be advanced to the pylorus into the duodenum suggestive of a gastric outlet obstruction and biopsies were done from the gastric ulceration. Was admitted to the hospital and on November 15 patient went for a tube placement and Mediport insertion. 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 Patient's hospital stay has been complicated by atrial fibrillation with rapid ventricular rate currently he is rate controlled. He also had renal failure requiring hemodialysis with a creatinine down to 1.84 today and has no longer being dialyzed. Patient has had prolonged intubation for which she was trached he remains on the mechanical ventilator he had a difficult time with weaning yesterday. Patient has had leakage around the J-tube site for this reason he has been started on TPN and tube feedings have been placed on hold. Surgery did place 2 stitches at the J-tube site yesterday however he still has leakage and he is being considered for a secondary surgery to insert a larger J-tube. Initially surgery had recommended transfer out for tertiary care and further surgical evaluation however after evaluation by Jeyson Ramirez the transfer was denied. Chest x-ray today reveals a right apical basilar opacity which remains unchanged. He remains on IV daptomycin and IV anidulafungin as well as IV Zosyn. He is receiving propofol for sedation and was on Levophed which is currently being weaned and his MAP is maintaining above 65 at this time. Blood work today reveals a white blood cell count of 11.6, hemoglobin 6.8, platelet count of 86, BUN of 53, creatinine of 1.84, sodium 139, potassium 3.3. Procalcitonin level was checked yesterday and positive at 0.55. 12/30/2023 Evaluated in follow-up in the intensive care unit. He remains on the mechanical ventilator. Status post tracheostomy. There has been a decrease in the amount of leakage around the J-tube site he continues on a gravity flow. TPN is infusing tube feedings remain on hold at this time. No bowel movement reported for the last 5 days. X-ray today reveals extensive pleural parenchymal opacities throughout the right with at least a moderate pleural effusion. Mild patchy densities left mid and lower lung are also similar. Blood work reveals a white blood cell count 11.5, hemoglobin 8.1, platelet count of 78, sodium 142, potassium 4.2, BUN of 42, creatinine of 1.22, Phos of 2.3, magnesium 1.9. Patient continues on IV anidulafungin IV Zerbaxa IV daptomycin. Patient is c urrently sedated with propofol and also Precedex which is currently on hold at this time. Unable to complete a review of systems at this time as patient is currently intubated and sedated. PHYSICAL EXAMINATION: GENERAL: The patient is alert and oriented x0 not in any acute distress. Well developed, well nourished. Sedated. HEENT: Pupils are round and equally reacting to light. EOMI. No scleral icterus. No conjunctival pallor. Normocephalic, atraumatic. No pharyngeal erythema. No thyromegaly. CARDIOVASCULAR: S1 and S2 present. No murmurs, rubs, or gallops. PULMONARY: Chest is clear to auscultation, no wheezing or crackles. ABDOMEN: Soft, nontender, nondistended, normoactive bowel sounds. No palpable organomegaly. Drain coming from the LLQ, Midline Wound VAC in place MUSCULOSKELETAL: No joint swelling or deformity. EXTREMITIES: No cyanosis, clubbing, or pedal edema. NEUROLOGICAL: Gross neurological examination did not reveal any focal deficits. SKIN: No rashes. Assessment and Plan -Aspiration pneumonitis bilateral from retained gastric contents mostly food and liquids, causing acute hypoxic respiratory failure: On presentation: Subsequent sputum culture November 25: Citrobacter freundii, Pseudomonas aeruginosa. December 13: Klebsiella oxytoca, Pseudomonas aeruginosa IV meropenem-was received originally. Now receiving IV daptomycin and zerbaxa Pulmonary following Started on IV antifungal -Probable lung abscess larger 1 on the right side-patient cultures are growing Pseudomonas and Klebsiella oxytoca IV Zerbaxa, daptomycin -Acute pulmonary edema and fluid overload from hypoalbuminemic state and fluids from IV.:: Has been getting Lasix and dialysis: Both held -Altered mentation. Possibly encephalopathy. Could be delirium.: Not improving CT brain [December 06] nothing acute Neurology following EEG-evidence of generalized cerebral dysfunction and sporadic intermittent higher amplitude sharply contoured waves mainly bifrontal. Showing cortical irritability. Keppra was started on December 07 -Critical care poly- Pedro neuropathy: Slow to respond PT OT -Gallstones, asymptomatic -Small l bowel perforation at site of jejunostomy tube tip with balloon..: Portion of small bowel resected. On November 24. New J-tube was placed.- drainage to gravity:-Now discontinued December 19: J-tube blocked. J-tube replaced on December 20 over wire December 21: Leaking around the J-tube site. Feeding held December 23: J feeding was started yesterday evening but again started leaking increasingly around the J-tube site-feeding held again December 24: J-tube feeding has been held. -Acute kidney injury. Possible ATN from hypotensive shock: Slow to respond Renal ultrasound unremarkable. Started on renal replacement therapy on November 28. Followed by nephrology-dialysis has been on hold now -Nutrition Jejunostomy tube placed November [address] Ewing Received TPN-this was discontinued. Restarted on December 24 -Midline abdominal incision wound dehiscence Wound VAC placed -Acute recurrent atrial fibrillation-converted to sinus rhythm Received IV amiodarone. Cardiology following Lopressor -Acute hypoxic respiratory failure from aspiration pneumonia, status post ventilator assisted: Reintubated November 25. FiO2 35 PEEP of 5 Tracheostomy tube-by Dr. Ewing on December 09 -Septic shock, recovered -Hypertension Patient started on Cleviprex-discontinued -Intermittent hypotension Intermittent use of Levophed. 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 Also anemia of blood draw. Iron deficiency anemia Received 3rd unit of blood . IV iron. -Severe thrombocytopenia. Would consider coagulation disorder secondary to infection., In the setting of underlying lymphoma.: Recovered Hematology following. 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 difficile ruled out. -Large superficial gastric antral ulceration involving the gastric antrum extending into the pylorus with gastric outlet obstruction. 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 Port placed. For outpatient PET scan. -Full code Greater than 35 minutes have been spent with the patient family at the bedside in the intensive care unit and coronation of care and chart review for this lengthy hospital stay. At this time patient is feeling wishes for patient to remain full code would like to continue with current antibiotic therapies and TPN. Jtube to gravity flow. Patient continues on IV Zerbaxa IV daptomycin and IV anidulafungin. Recommend to repeat blood cultures CBC and BMP in the morn ing. Has been hospitalized for 48 days now. hopeful and not ready to discuss hospice. The impression and plan of care has been dictated by Carol Ulrich, Nurse Practitioner as directed. Dr. Jozef MD I have performed a history and physical examination and medical decision making of this patient, discussed the same with the dictator, and agree with the dictators assessment and plan as written, documented as a scribe. Based on total visit time, I have performed more than 50% of this visit. Objective - Vital Signs Vital signs: Vital Signs Temp 98.2 F 12/30/23 04:00 Pulse 86 12/30/23 08:02 Resp 23 12/30/23 07:00 BP 146/94 12/30/23 07:00 Pulse Ox 97 12/30/23 07:00 FiO2 30 12/30/23 07:54 Intake & Output 12/29/23 12/30/23 12/30/23 18:59 06:59 18:59 Intake Total 2212.400 1472.508 210.177 Output Total 2755 1720 100 Balance -542.600 -247.492 110.177 Weight 101.6 kg Intake: IV 1200 600 50 0.45 600 600 50 Piperacillin-Tazobactam 3 100 .375 gm In Sodium Chloride 0.9% 100 ml @ 25 mls/hr IVPB Q12HR [facility] Rx #:[id number] Potassium Phosphate 10 500 mmol In Sodium Chloride 0 .9% 250 ml @ 125 mls/hr IV ONCE ONE Rx#:[id number] Intake, IV Titration 197.400 92.508 95.177 Amount Dexmedetomidine/0.9% NaCl 197.400 92.508 95.177 (Pmx) 400 mcg In Empty Bag 1 bag @ 0.2 MCG/KG/HR 4.94 mls/hr IV .[id number] [facility] Rx#:[id number] TPN/PPN 715 780 65 TPN 715 780 65 Albumin 100 Albumin Human 25% 50 ml 100 In Empty Bag 1 bag @ 50 mls/hr IVPB Q1H [facility] Rx#: [id number] Output: Gastric Drainage 65 Drainage 480 70 Right Abdomen 30 70 wound vac 450 Urine 2210 1650 100 Other: Voiding Method Indwelling Catheter Indwelling Catheter ABP, PAP, CO, CI - Last Documented Arterial Blood Pressure 150/62 - Labs CBC & Chem 7: 12/30/23 05:25 12/30/23 05:25 Labs: Abnormal Lab Results - Last 24 Hours (Table) 12/29/23 12/29/23 12/29/23 Range/Units 12:30 17:53 21:30 WBC (3.8-10.6) k/uL RBC (4.30-5.90) m/uL Hgb (13.0-17.5) gm/dL Hct (39.0-53.0) % RDW (11.5-15.5) % Plt Count (150-450) k/uL Neutrophils # (1.3-7.7) k/uL ABG pCO2 (35-45) mmHg ABG HCO3 (21-25) mmol/L ABG O2 Saturation (94-97) % Hemoglobin (13.0-17.5) gm/dL Chloride (98-107) mmol/L Carbon Dioxide (22-30) mmol/L BUN (9-20) mg/dL Glucose (74-99) mg/dL POC Glucose (mg/dL) 220 H 220 H 161 H (70-110) mg/dL Calcium (8.4-10.2) mg/dL Phosphorus (2.5-4.5) mg/dL Total Bilirubin (0.2-1.3) mg/dL Total Protein (6.3-8.2) g/dL Albumin (3.5-5.0) g/dL 12/30/23 12/30/23 12/30/23 Range/Units 05:25 05:25 05:25 WBC 11.5 H (3.8-10.6) k/uL RBC 2.74 L (4.30-5.90) m/uL Hgb 8.1 L (13.0-17.5) gm/dL Hct 25.0 L (39.0-53.0) % RDW 18.4 H (11.5-15.5) % Plt Count 78 L (150-450) k/uL Neutrophils # 8.5 H (1.3-7.7) k/uL ABG pCO2 31 L (35-45) mmHg ABG HCO3 20 L (21-25) mmol/L ABG O2 Saturation 97.6 H (94-97) % Hemoglobin 7.9 L (13.0-17.5) gm/dL Chloride 119 H (98-107) mmol/L Carbon Dioxide 20 L (22-30) mmol/L BUN 42 H (9-20) mg/dL Glucose 178 H (74-99) mg/dL POC Glucose (mg/dL) (70-110) mg/dL Calcium 6.9 L (8.4-10.2) mg/dL Phosphorus 2.3 L (2.5-4.5) mg/dL Total Bilirubin 2.0 H (0.2-1.3) mg/dL Total Protein 5.3 L (6.3-8.2) g/dL Albumin 1.9 L (3.5-5.0) g/dL Microbiology - Last 24 Hours (Table) 12/28/23 12:22 Catheter Tip Culture - Preliminary Catheter Tip 12/25/23 12:52 Blood Culture Gram Stain - Final Blood Blood Culture - Final Staphlyococcus pettenkoferi Molecular ID 12/25/23 16:49 Gram Stain - Final Sputum Sputum Culture - Final Citrobacter freundii Pseudomonas aeruginosa Assessment and Plan Time with Patient: Less than 30
[2023-12-30] MEDS: LORazepam 2 MG/ML INJ IV PRN (16:54)
[2023-12-30 17:54] LABS: Glucose,Whole Blood 226 mg/dL (70-110)
--- NOTE | 2023-12-30 23:18 | P.PN ---
Subjective Progress Note Date: 12/30/23 Principal diagnosis: Reason for follow-up is pneumonia and bacteremia Patient is 73-year-old with male initial presentation to the hospital on 11/11/2021 for after the patient did have aspiration while undergoing elective endoscopy, diagnosed with a non-Hodgkin of, subsequently did have explained laparotomy for perforated small bowel abdominal washout and feeding jejunostomy tube patient did require dialysis catheter placement for dialysis during this hospital stay and tracheostomy for respiratory failure, infectious was consulted for fever. On today's evaluation that is 12/30/2023, patient id have low-grade fever 100.6 degrees Fahrenheit at 8 AM, the patient has been afebrile patient is back on the ventilator FiO2 stable at 30% no significant purulent secretion through the ET or any worsening drainage from the jejunostomy tube site. Patient white count is 11.5 creatinine is 1.22 Objective - Vital Signs Vital signs: Vital Signs Temp 100.6 F H 12/30/23 08:00 Pulse 86 12/30/23 11:39 Resp 38 H 12/30/23 11:00 BP 102/62 12/30/23 11:00 Pulse Ox 95 12/30/23 11:00 FiO2 30 12/30/23 11:23 Intake & Output 12/29/23 12/30/23 12/30/23 18:59 06:59 18:59 Intake Total 2212.400 1472.508 811.062 Output Total 2755 1720 575 Balance -542.600 -247.492 236.062 Weight 101.6 kg Intake: IV 1200 600 250 0.45 600 600 250 Piperacillin-Tazobactam 3 100 .375 gm In Sodium Chloride 0.9% 100 ml @ 25 mls/hr IVPB Q12HR [facility] Rx #:[id number] Potassium Phosphate 10 500 mmol In Sodium Chloride 0 .9% 250 ml @ 125 mls/hr IV ONCE ONE Rx#:[id number] Intake, IV Titration 197.400 92.508 161.062 Amount Dexmedetomidine/0.9% NaCl 197.400 92.508 152.934 (Pmx) 400 mcg In Empty Bag 1 bag @ 0.2 MCG/KG/HR 4.94 mls/hr IV .[id number] [facility] Rx#:[id number] propofoL 1,000 mg In 8.128 Empty Bag 1 bag @ 15 MCG/ KG/MIN 9.144 mls/hr IV . [id number] [facility] Rx#:[id number] TPN/PPN 715 780 400 TPN 715 780 400 Albumin 100 Albumin Human 25% 50 ml 100 In Empty Bag 1 bag @ 50 mls/hr IVPB Q1H [facility] Rx#: [id number] Output: Gastric Drainage 65 Drainage 480 70 Right Abdomen 30 70 wound vac 450 Urine 2210 1650 575 Other: Voiding Method Indwelling Catheter Indwelling Catheter ABP, PAP, CO, CI - Last Documented Arterial Blood Pressure 117/51 - Exam GENERAL DESCRIPTION: An elderly male lying in bed in no distress RESPIRATORY SYSTEM: Unlabored breathing , decreased breath sounds at bases HEART: S1 S2 regular rate and rhythm , ABDOMEN: Soft , no tenderness EXTREMITIES: No edema feet - Labs CBC & Chem 7: 12/30/23 05:25 12/30/23 05:25 Labs: Abnormal Lab Results - Last 24 Hours (Table) 12/29/23 12/29/23 12/29/23 Range/Units 12:30 17:53 21:30 WBC (3.8-10.6) k/uL RBC (4.30-5.90) m/uL Hgb (13.0-17.5) gm/dL Hct (39.0-53.0) % RDW (11.5-15.5) % Plt Count (150-450) k/uL Neutrophils # (1.3-7.7) k/uL ABG pCO2 (35-45) mmHg ABG HCO3 (21-25) mmol/L ABG O2 Saturation (94-97) % Hemoglobin (13.0-17.5) gm/dL Chloride (98-107) mmol/L Carbon Dioxide (22-30) mmol/L BUN (9-20) mg/dL Glucose (74-99) mg/dL POC Glucose (mg/dL) 220 H 220 H 161 H (70-110) mg/dL Calcium (8.4-10.2) mg/dL Phosphorus (2.5-4.5) mg/dL Total Bilirubin (0.2-1.3) mg/dL Total Protein (6.3-8.2) g/dL Albumin (3.5-5.0) g/dL 12/30/23 12/30/23 12/30/23 Range/Units 05:25 05:25 05:25 WBC 11.5 H (3.8-10.6) k/uL RBC 2.74 L (4.30-5.90) m/uL Hgb 8.1 L (13.0-17.5) gm/dL Hct 25.0 L (39.0-53.0) % RDW 18.4 H (11.5-15.5) % Plt Count 78 L (150-450) k/uL Neutrophils # 8.5 H (1.3-7.7) k/uL ABG pCO2 31 L (35-45) mmHg ABG HCO3 20 L (21-25) mmol/L ABG O2 Saturation 97.6 H (94-97) % Hemoglobin 7.9 L (13.0-17.5) gm/dL Chloride 119 H (98-107) mmol/L Carbon Dioxide 20 L (22-30) mmol/L BUN 42 H (9-20) mg/dL Glucose 178 H (74-99) mg/dL POC Glucose (mg/dL) (70-110) mg/dL Calcium 6.9 L (8.4-10.2) mg/dL Phosphorus 2.3 L (2.5-4.5) mg/dL Total Bilirubin 2.0 H (0.2-1.3) mg/dL Total Protein 5.3 L (6.3-8.2) g/dL Albumin 1.9 L (3.5-5.0) g/dL Microbiology - Last 24 Hours (Table) 12/28/23 12:22 Catheter Tip Culture - Preliminary Catheter Tip 12/25/23 12:52 Blood Culture Gram Stain - Final Blood Blood Culture - Final Staphlyococcus [email or web address] Molecular ID 12/25/23 16:49 Gram Stain - Final Sputum Sputum Culture - Final Citrobacter freundii Pseudomonas aeruginosa Assessment and Plan (1) Sepsis Current Visit: Yes Status: Acute Code(s): A41.9 - SEPSIS, UNSPECIFIED ORGANISM SNOMED Code(s): 78666809 (2) Pneumonia Current Visit: Yes Status: Acute Code(s): J18.9 - PNEUMONIA, UNSPECIFIED ORGANISM SNOMED Code(s): 010754419 (3) Bacteremia Current Visit: Yes Status: Acute Code(s): R78.81 - BACTEREMIA SNOMED Code(s): 4506146 Plan: 1patient with pneumonia with a sputum showing Citrobacter and Pseudomonas aeruginosa, the patient sputum repeat is still growing Citrobacter and Pseudomonas sensitive to the Pseudomonas that is a drug-resistant and resistant to Zosyn, patient is currently on Zerbaxa and will monitor clinical course closely 2-patient did have a positive blood culture with staph epi that was oxacillin resistant as the patient did have a PICC line and the dialysis catheter he is on daptomycin repeat blood culture currently growing oxacillin sensitive staph epi, the patient dialysis catheter has been discontinued Has been sent for the culture await results of the catheter tip 3-patient also have significant excoriation around his jejunostomy tube site which is still leaking local care with Triad cream along with Eraxis 4the patient did have a low-grade fever if any further fever or worsening white count will to reculture and adjust antibiotic at the bedside questions answered Dictation was produced using [employer] dictation software. please excuse any grammatical, word or spelling errors. Time with Patient: Less than 30
[2023-12-30 23:51] LABS: Glucose,Whole Blood 226 mg/dL (70-110)
[2023-12-31] MEDS: [UNRECOGNIZED DRUG - REMARK] IV SCH (02:50)
[2023-12-31 04:50] LABS: ABG Base Excess -3.2 mmol/L; ABG HCO3 21 mmol/L (21-25); ABG Oxygen Saturation 98.2 % (94-97); ABG PCO2 35 mmHg (35-45); ABG PO2 94 mmHg (83-108); ABG TCO2 22 mmol/L (19-24); Allen Test Performed? Yes
[2023-12-31 04:55] LABS: Anisocytosis Slight; Basophils % (A) 0 %; Eosinophils # (A) 0.1 k/uL (0-0.7); Eosinophils % (A) 1 %; HCT 22.4 % (39.0-53.0); HGB 7.3 gm/dL (13.0-17.5); Hypochromasia Moderate; Lymphocytes % (A) 23 %; MCHC 32.5 g/dL (31.0-37.0); MCV 92.3 fL (80.0-100.0); Mean Platelet Volume 10.8; Monocytes # (A) 0.3 k/uL (0-1.0); Monocytes % (A) 3 %; Neutrophils # (A) 9.3 k/uL (1.3-7.7); Neutrophils % (A) 72 %; RBC 2.43 m/uL (4.30-5.90); RDW 18.4 % (11.5-15.5); WBC 12.8 k/uL (3.8-10.6)
[2023-12-31 05:00] LABS: Platelet Count 67 k/uL (150-450)
[2023-12-31 05:48] LABS: African American GFR (CKD) 74 (>60 ml/min/1.73 sqM); Anion Gap 1 mmol/L; Blood Urea Nitrogen 43 mg/dL (9-20); Calcium 6.8 mg/dL (8.4-10.2); Carbon Dioxide 20 mmol/L (22-30); Chloride 119 mmol/L (98-107); Glucose 198 mg/dL (74-99); Magnesium 2.1 mg/dL (1.6-2.3); Non-African American GFR(CKD) 64 (>60 ml/min/1.73 sqM); Phosphorus 2.8 mg/dL (2.5-4.5); Potassium 3.6 mmol/L (3.5-5.1); Sodium 140 mmol/L (137-145)
[2023-12-31] MEDS ORDERED: Potassium Replacement Protocol 1 EACH MISC MISCELLANE PRN (05:57)
[2023-12-31 06:00] LABS: Glucose,Whole Blood 223 mg/dL (70-110)
[2023-12-31] MEDS: POTASSIUM CHLORIDE 10 MEQ in WATER FOR INJECTION 1 100ML.BAG IVPB SCH (07:03)
--- NOTE | 2023-12-31 07:30 | XR ---
EXAMINATION TYPE: XR chest 1V portable DATE OF EXAM: 12/31/2023 Comparison: 12/30/2023 Clinical History: 73-year-old male mechanical ventilation Findings: Tracheostomy cannula. Left PICC tip obscured by overlying EKG leak. Right anterior chest wall injecti on port with catheter tip low in the right atrium. Heart mildly enlarged. Extensive pleural parenchym al opacity with underlying effusions persist on the right. Increasing small left pleural effusion wit h ongoing patchy opacity left mid and lower lung. Impression: 1. Similar tip position of the right anterior chest wall injection port catheter, low in the right at rium near the inferior cavoatrial junction. An EKG lead obscures the left PICC line tip. 2. Ongoing extensive pleural-parenchymal opacities on the right. 3. Increasing small left pleural effusion on the left with ongoing patchy left mid and lower lung opa city. [facility], , 12/31/2023 7:27 AM
[2023-12-31] MEDS: HYDROmorphone 2 MG/ML 1 ML SYRINGE IVP PRN (09:56)
--- NOTE | 2023-12-31 10:41 | P.PN ---
Subjective Progress Note Date: 12/31/23 Principal diagnosis: Abdominal pain. This is a 73-year-old white male with history of chronic abdominal pain for the last 8 months has been treated with Protonix 40 mg daily for the last 3 months with no improvement. Patient had a 22 pound weight loss in the last [address] of the abdomen and pelvis 3 weeks ago showed thickening of the antral wall with pathological adenopathy posterior to the stomach suspicious of neoplasm. Today the patient underwent elective upper endoscopy to evaluate further, patient received IV sedation by anesthesia endoscope was inserted into the mouth, esophagus was intubated without any difficulty there was evidence of large amount of liquid and solid food noted in the stomach suggestive of gastric outlet obstruction. Scope could not be advanced through the pylorus, however in the prepyloric area there was a large superficial ulceration identified with multiple biopsies were done from this area. The body cardia and fundus could not adequately visualize because of large amount of retained food in the stomach. Scope was withdrawn back to the stomach and upon careful examination the mucosa of the antrum body and cardia as well as the fundus appeared normal. Procedure was being performed and biopsies were done patient threw up and subsequently became hypoxic there was clearly evidence of witnessed aspiration anesthesia intubated the patient, procedure was terminated, and the patient was transferred to the ICU, this consult was initiated. Patient is now on assist- control rate of 20 tidal volume 500 FiO2 70% PEEP of 10 ABG is pending, earlier ABG showed profound hypoxia patient is on propofol at 50 mcg/kg/min, next ABG is pending. Chest x-ray showed chronic changes without evidence of acute pulmonary disease. Patient was seen and examined today on 11/13/2023, remains in the ICU, intubated mechanically ventilated, on assist-control rate of 20 tidal volume 500 FiO2 50% and PEEP of 10 ABG showed a pO2 of 143 pCO2 47 pH of 7.28 hence PEEP was cut down to 6, and increased rate to 22. Patient is still requiring IV fluid at 100 cc/h/LR. Requiring norepinephrine at 0.08 mcg/kg/min he is also on propofol at 50 mg/kg/min antibiotics arce patient is receiving Zosyn. Chest x-ray is showing worsening infiltrates specially in the left lung. This could be related to aspiration pneumonia. Patient had witnessed aspiration during endoscopy/upper endoscopy.WBC count is 14 hemoglobin 7.6 basic metabolic profile is normal BUN is 26 creatinine 1.57 obviously the patient sustained some acute kidney injury baseline creatinine 0.86 patient had received fluids over the last 24 hours, remains on fluids at 100 cc/h Patient with seen and examined today on 11/14/2023, patient remains in the ICU, intubated and mechanically ventilated. Failed weaning trial yesterday and he became quite agitated and desaturated once he went off propofol. Had to be placed back on assist-control mode of mechanical ventilation and sedation. Today the patient is on assist-control rate of 22 tidal volume 500 FiO2 50% PEEP of 6. ABG showed a pO2 of 123 pCO2 51 pH of 7.32, and I cut down his FiO2 down to 45%, patient is receiving a unit of packed RBCs for hemoglobin of 6.9 today. Patient had an episode of A-fib RVR at 3 AM in the morning, seen by cardiology, and recommended patient goes on amiodarone. Still requiring norepinephrine at 0.05 mg/kg/min, he is on LR at 100 cc/h propofol at 50 mg/kg/min. Remains empirically on Zosyn for aspiration pneumonia. My plan today is transitioning the patient to Precedex, hopefully discontinue propofol, and at least give the patient a decent weaning trial or at least check weaning parameters before we proceed to weaning trial. Chest x-ray continues to show evidence of pneumonia mostly in the left lung and left lower lobe more specifically. Some pulmonary vascular congestion is noted with interstitial edema, small pleural effusion is also noted/left side. WBC count today is 12 hemoglobin 6.9 basic metabolic profile is normal bicarb is 25, BUN is 25 creatinine is improving down to 1.21 from 1.57 yesterday Patient was evaluated today on 11/15/2023, patient remains in the ICU, he was extubated yesterday, and his extubation was relatively uneventful. However the patient continues to have nasogastric tube in place, his pathology report came back showing non-Hodgkin's lymphoma, patient has gastric outlet obstruction, and the recommendation by GI is to consult surgery for a jejunostomy tube which is appropriate. Patient will be seen today by oncology and [facility] In the meantime patient is comfortable, he is on 5 L nasal cannula he has LR running at 100 cc/h, he is remains on Zosyn for aspiration pneumonia remains on amiodarone which was started by cardiology for atrial fibrillation with RVR, presently in sinus rhythm. Cannot switch him to oral because of the fact that remains n.p.o., patient remains on TPN. WBC count is 10.7 hemoglobin 7.5 electrolytes are normal renal profile is normal, creatinine normalized to 0.96 Patient was evaluated today on 11/16/2023, remains in the ICU, on 5 L nasal cannula remains on amiodarone at 0.5 mg/min remains on LR at 100 cc/h, however his chest x-ray is showing some component of interstitial edema or could be findings related to his recent episode of aspiration/aspiration pneumonia, nonetheless the patient seems to be a bit symptomatic, he has intermittent cough and wheezing, I am recommending Lasix 40 mg IV push, cut down his IV fluid to 50 cc/h, continue Zosyn, patient will be placed on DuoNeb updrafts and on Solu- Medrol. Patient is scheduled to have jejunostomy-tube placement today. WBC count is 13 hemoglobin 7.7 basic metabolic profile is normal and renal profile is normal Patient was evaluated today on 11/17/2023, patient underwent uneventful placement of a jejunostomy tube yesterday, in the ICU on 5 L, patient is relatively stable, not in any distress, patient continues to have nasogastric tube in place although he did have a J-tube placed yesterday. Patient was seen by oncology for his non-Hodgkin's lymphoma involving the gastric outlet. Today's x-ray showed evidence of pneumonia/bilateral interstitial infiltrate/edema patient was given a dose of Lasix, I reminded the patient had an aspiration episode which was significant. And he required intubation mechanical ventilation for a few days.WBC count today is 9.1 hemoglobin 7.9 electrolytes are normal renal profile is normal hence I plan to transfer the patient out of the ICU to a cardiac floor. And hopefully discharge planning in the next 2 days for The patient was seen today November 18, 2023 in follow-up in the intensive care unit. He is currently sitting up in bed. Awake and alert in no acute distress. He is maintaining O2 saturations in the 90s on 5 L/min per nasal cannula. Glucose 177. Remains on DuoNeb inhalations and Solu-Medrol. Antibiotics in the form of Zosyn. He has a J-tube in place. He was initiated on vital AF 1.2 at 10 mL an hour with a goal of 82 mL/h The patient is seen today November 19, 2023 in follow-up in the intensive care unit. He is a regular medical floor overflow patient. He is currently sitting up in a chair. Awake and alert in no acute distress. He is maintaining O2 saturations in the 90s on 5 L/min per nasal cannula. No IV fluids. He denies any worsening shortness of breath, cough or congestion. He is having some issues with diarrhea. He remains on Zosyn. He is receiving vital AF at 55 mL/h with a goal of 82 mL/h. Glucose 161. Solu-Medrol, DuoNeb inhalations. The patient is seen today November 20, 2023 in follow-up on the regular medical floor. He is currently up in a chair at the bedside. Awake and alert in no acute distress. Denies any worsening shortness of breath, cough or congestion. He is maintaining O2 saturation in the 90s on 3 L/min per nasal cannula. He continues on Zosyn. Continues on bronchodilators and steroids. White count 12.3. Hemoglobin 9.0. Platelets 258. Glucose 168. He is not tolerating his tube feeds as he has developed diarrhea. C. difficile screen was negative. Abdominal series revealed cardiomegaly with left basilar acute infiltrate and/or atelectasis. Overall nonspecific bowel gas pattern. A small bowel obstruction needs to be considered. Progress note dated November 21, 2023. The patient is seen in room 517. The patient is currently on 3 L of oxygen. He continues on Zosyn. His biggest complaint has been abdominal discomfort and diarrhea. He did have a CT scan of the abdomen and pelvis. Current laboratory data includes a white count of 14.4, hemoglobin 8.8, hematocrit 28.7, and platelet count 229,000. Sodium 139, potassium 4.1, chlorides 103, CO2 30, BUN 42, creatinine 0.94. Glucose is 158. Calcium is 8.5. Progress note dated November 22, 2023. 73-year-old male seen in room 517. He currently is on 2 L of oxygen. Room air saturation was 89%. Chest CT shows bilateral patchy infiltrates. He continues on Zosyn. He is still not taking anything by mouth. No new laboratory data today other than a glucose of 138. Gram stain was negative. Progress note dated November 23, 2023. 73-year-old male seen in room 517. He is resting comfortably without com plaints. He continues on saline at 10 cc an hour, tube feedings with Pivot at 20 cc an hour, Zosyn, and 2 L by nasal cannula. He has had an uneventful night. Laboratory data today includes a white count 14.5, hemoglobin 9.7, hematocrit 31.4, and a platelet count of 242,000. Sodium 138, potassium 3.7, chlorides 106, CO2 26, BUN 39, creatinine 0.95. Glucose is 181. Calcium is 8.5. Sputum sampling was negative. Progress note dated November 24, 2023. 73-year-old male who is seen in room 517. The patient has been having significant abdominal discomfort, and went for a evaluation, ordered by surgery today, to determine whether or not the feeding tube, was in proper position, and whether or not there is anything acutely going on in the abdomen. He had been having diarrhea. He is on 3 L of oxygen. He has been here for 12 days. This is a patient, that had a prior EGD, aspirated, because of gastric outlet obstruction, and was diagnosis of non-Hodgkin's lymphoma. He is currently on Zosyn, DuoNebs, and Solu-Medrol. He has been NPO. Chest x-ray showed a left lower lobe infiltrate. Abdominal x-ray showed multiple air-fluid levels. CT of the abdomen showed multiple dilated small bowel loops, consistent with obstruction, pneumoperitoneum, ascites, and cholelithiasis. White count was 14.1, hemoglobin 8.9, hematocrit 29.5, and platelet count was 255,000. Glucose was 143. 11/25/2023, the patient is being seen in the intensive care unit. The patient is critically ill, n.p.o., he has an NG tube in place. Following the NG tube insertion, there was a total of 2.0 L of output and the patient's J-tube was also draining approximately 200 cc over the past 8 hours. Continues to have abdominal pain which is rather diffuse and the patient has direct abdominal tenderness. CAT scan of the abdomen was noted and was consistent with small bowel obstruction. The patient has a stomach that was inflated and in the same time there were multiple loops of small bowel distended with fluid. This extended to the pelvis. J-tube with contrast nondilated small bowel loops within the mid abdomen. Additional loops of small bowel were seen that was dilated. There was some contrast in the right lower quadrant and contrast was also in the cecum. No transition point was identified. The dilated loops of the bowel appeared to be in the proximal jejunum and distal to the duodenum. General surgery is on the case the patient will be taken to the operating room for another exploratory laparotomy. Noted the CAT scan of the abdomen also showed pneumoperitoneum and small amount of ascites and cholelithiasis. Hemodynamically, the patient is currently on normal saline at rate of 75 cc an hour. He is hypotensive and is going to be started on pressors. He is on 4 L of oxygen by nasal cannula. He also has sustained acute kidney injury. Blood work from today shows a rise in the creatinine which is currently up to 2.5 with a BUN of 57. Serum bicarb is at 14 with an anion gap of 11. The patient WBC count is at 8.2 with a hemoglobin of 12.3 and a platelet count of 188. Chest x- ray from this morning is showing a right-sided port and a stable left lung airspace disease and an NG tube being in place. The patient remains on IV Zosyn. The patient is receiving Dilaudid for pain control. The patient remains on IV Solu-Medrol 60 mg every 6 hours. It was noted that the patient's surgical wound over the port has dehisced and there is some serous drainage and erythema at the incision site. Awake and alert and communicating. Family at the bedside. No apparent signs of respiratory distress at this point. 11/26/2023, the patient is being seen in follow-up. Events from yesterday was noted and the patient was taken to the operating room for exploratory laparotomy. The patient was found to have large amount of free fluid noted in the abdomen and there was significant contamination. There was perforation of the small bowel with the balloon of the previously inserted jejunostomy tube penetrating through the perforation. As such, the tube was removed, abdominal washout was done. Small bowel resection was done and the patient had a nodular jejunostomy tube inserted. Postop, the patient was extubated he was unable to tolerate extubation and the patient was kept intubated on mechanical ventilator and he was brought back to the intensive care unit. He is currently postop day #1 following his small bowel resection. Abdominal surgical wound site is dry c lean and intact. This morning, the patient remains sedated on propofol which is currently running at 35 mcg/kg/min. He is on assist-control mode of mechanical ventilation at rate of 28, tidal volume of 550, FiO2 of 60% with a PEEP of 5. Blood gas from today shows a pH of 7.35 with a pCO2 44 and pO2 of 88. Chest x- ray shows adequate positioning of the orotracheal tube. The patient has a Mediport on the right and a subclavian triple-lumen catheter on the left and the patient has persistent bilateral pleural effusion and infiltrates in lung base bilaterally. Hemodynamically, the patient remains in shock. He has been on high-dose norepinephrine which is currently running at 0.28 mcg/kg/min and the patient is also on vasopressin at 0.03 units an hour. He is IV fluids are in the form of bicarb infusion running at rate of 150 cc an hour. He is in sinus tachycardia. NG tube output has been 250 cc over the past 8 hours and the output from the J-tube is minimal at this point in time. Urine output is quite diminished as the patient has also sustained acute kidney injury. Overall fluid balance is +4.9 L over the past 24 hours. The patient's white cell count of 5.7 with a hemoglobin 9.9 and platelet count of 172. BUN is 72 with a creatinine of 2.8 and sodium levels at 143. The calcium level is at 6.5. LFTs are normal. Triglyceride level is at 315. On 11/27/2023, the patient remains critically ill. Remains intubated and on mechanical ventilator, still awaiting shock which is essentially septic shock. Remains on propofol which is running at 50 mcg/kg/min. Remains on the mechanical ventilator, assist-control mode with rate of 28, tidal volume of 550 with an FiO2 of 60% with a PEEP of 5. Blood gas shows a pH of 7.29 with a pCO2 of 47 and pO2 of 78. The patient had a follow-up chest x-ray that showed lower lobe consolidation slightly worse on the right and the orotracheal tube is in a good location. Urine output is diminished in the order of 5 to 10 cc an hour and the patient is also developing progressive worsening renal function. Remains on normal citrate of 150 cc an hour and the patient was started on TPN which is running at 30 cc an hour. He has a triple-lumen catheter in his left subclavian. Overall fluid balance over the past 24 hours is +3.9 L. Output from the NG tube and the J-tube is minimal. Hemodynamically, he is hypotensive and norepinephrine running at 0.45 mcg/kg/min. Vasopressin is a physiologic dose. He received amiodarone and he remains on maintenance amiodarone of 0.5 mg/min and the patient continues to be in atrial fibrillation and is having episodes of tachycardia. The white cell count is at 13, hemoglobin 9.4 platelet count is pending. The patient's BUN is 83 with a creatinine of 3.7. Sodium is at 140 with a potassium level of 5.5 dropped down to 4.4 as the sample was hemolyzed. LFTs are normal. Abdominal wound is dry clean and intact. RAYA drainage is essentially serous at this point in time. 11/28/2023, the patient is being seen for a follow-up. The patient remains intubated on mechanical ventilator. This morning, the patient tolerated propofol drip running at 50 mcg/kg/min. The patient is on mechanical ventilator assist-control mode with rate of 28, tidal volume of 550, FiO2 55% with a PEEP of 5. Chest x-ray shows stable findings with lower lobe consolidations bilaterally. Blood gas shows a pH of 7.32 with a pCO2 38 and pO2 90. Neuropathy has improved and the patient is producing approximately 30 cc an hour and the overall input output balance is +3.3 L over the past 24 hours. The patient is still on pressors although his pressor requirements have improved since yesterday. He is on norepinephrine which is running at 0.05 mcg/kg/min and vasopressin physiologic dose. Also, the patient on amiodarone drip regarding his chronic ongoing atrial fibrillation. Amiodarone drip is running at 0.5 mg/min. Nevertheless, the rate is under much better control. Noted the patient was given a dose of digoxin 0.5 mg IV yesterday which helped with rate control. Remains on normal citrate of 150 cc an hour. Remains on TPN at 40 cc an hour. Output from the J-tube is fecal. Output from the NG tube is more gastric. Surgical wound site is dry clean and intact. Sputum Gram stain and culture showing Pseudomonas and Citrobacter. Note that the Citrobacter was intermediate resistance to Zosyn. This will be discussed further with infectious disease. Blood cultures are still pending for now. They have negative based on the most recent check. Blood work from today shows WBC count 11.2, hemoglobin 7.9 and platelet count of 46. Sodium is at 140, potassium is at 4.3, chloride is 114 with a bicarb of 18. He has 93 and the creatinine is 4.8. Serum random vancomycin level is at 25.7. On 11/29/2023, the patient is being seen for a follow-up. Remains intubated on the mechanical ventilator. The patient sedated on propofol which is running at 35 mcg/kg/min. Synchronous with mechanical ventilator. On today's evaluation, he is on assist-control mode with rate of 28, tidal volume of 550, FiO2 55% with a PEEP of 5. Chest x-ray shows lower lobe consolidation bilaterally worse on th e right and the orotracheal tube is in good location. The blood gas showed a pH of 7.34 with a pCO2 of 35 and a pO2 of 84. No significant orotracheal secretions. Hemodynamically improved compared to yesterday. In fact, the patient is on minimal norepinephrine that was discontinued earlier this morning. The patient has converted to normal sinus rhythm. Remains on amiodarone at 0.5 mg/min. Overall fluid balance over the past 24 hours is 2.4 L positive. Urine output has been adequate and the patient is currently on IV Lasix. Nevertheless, the patient has developed progressive worsening renal function. Creatinine is up to 5.3 on today's evaluation with a potassium level of 4.4. Serum bicarb is at 18 with an anion gap of 9. WBC count is at 8.1 with a hemoglobin of 7 and a platelet count of 32 which has dropped compared to earlier evaluation. The rest of the coagulation profile was normal from 11/28/2023. Fibrinogen level is slightly elevated. Sputum samples have shown a combination of Citrobacter and Pseudomonas aeruginosa. Based on cultures and sensitivities, the patient will be taken off his IV Zosyn and he will be switched to IV meropenem. Output from the J-tube is fecal. Output from the NG tube is gastric and surgical wound site is dry clean and intact. He is afebrile for now. Hemodynamically, the patient is doing better. He remains on TPN for nutritional support. IV fluids are also running at a rate of 75 cc an hour. Remains on vancomycin. 11/30/2023, the patient is being seen for a follow-up. The patient remains on propofol at 50 mcg/kg/min. Ventilator settings are essentially unchanged. The patient remains on assist-control mode with rate of 18, tidal volume of 400, FiO2 50% with a PEEP of 5. The blood gas showed a pH of 7.37 with a pCO2 of 43 and pO2 of 127. Chest x-ray shows no significant interval change. Patient remains on normal saline at rate of 75 cc an hour and TPN at rate of 35 cc an hour. Fluid balance is positive. Hemodialysis was performed yesterday and the second session of hemodialysis to be done today. The patient's urine output is in the order of 20 to 30 cc an hour. The patient has an NG output of 350 cc for yesterday and the drainage from the J-tube is in the order of 400 cc over the past 24 hours. The blood work shows a WBC count of 10.8, hemoglobin 8.1 and platelet count of 41. Platelet counts are essentially stable and slightly improved compared to yesterday. The sodium level is at 133, potassium is at 4.3, BUN is 93 with a creatinine of 3.6. LFTs are within normal limits. Albumin is down to 2.1. The patient is currently on no pressors. Norepinephrine and vasopressin are both discontinued and the patient remains in normal sinus rhythm. No other significant events overnight. Family has been updated on his condition. Antibiotic coverage is currently with IV meropenem. Vancomycin and Zosyn have been both discontinued. On 12/01/2023, the patient remains sedated on propofol which is running at 25 mcg/kg/min., Comfortable and synchronous mechanical ventilator. The patient remains on assist-control mode rate of 28, tidal volume of 550, FiO2 40% and PEEP of 5. Blood gas shows a pH of 7.49 with a pCO2 of 34 and pO2 of 121. Patient underwent hemodialysis yesterday. No plans for hemodialysis today the patient is producing urine output. Remains on TPN for nutrition support rate of 75 cc an hour. IV fluids are currently at KVO. The chest x-ray from today shows bilateral lower lobe consolidation worse on the right. No significant change in the volume status. The patient continues to have third spacing and edema in all 4 extremities. Nevertheless, urine output is adequate at this point in time and the patient remains on Lasix 80 mg IV every 12 hours. Remains NPO. NG tube and J-tube are both drainage. Output is noted. Remains on IV meropenem. Afebrile. Currently on no pressors. Blood work shows a WBC count of 11.4, hemoglobin of 8.1 and platelet count of 46. Sodium is at 131, potassium level is at 3.7, chloride 101 and bicarb is at 24. BUN is 84 with a creatinine of 3.6. Glucose of 228. LFTs are within normal limits. Patient was reevaluated today on 12/02/23, patient remains in the ICU, patient is familiar to my service, I saw this patient 3 weeks ago. Since then he had a very complicated hospital course, related to his jejunostomy tube dislodging and leaking and picture of abdominal sepsis and worsening pneumonia/ARDS. Patient had to be placed back on mechanical ventilation, and he is now intubated and mechanically ventilated. He is on assist-control rate of 20 tidal volume 550 FiO2 40% PEEP of 5 ABG showed a pO2 of 111 pCO2 38 pH of 7.43 and I cut down his FiO2 to 35% and increase his flow rate from 60-70. Patient remains on TPN at 75 cc/h he is on propofol at 25 mcg/kg/min patient is on Cleviprex which I added today for elevated blood pressure. Receiving Lasix 80 mg every 12 hours is also on Merrem as per infectious disease. Patient is on hemodialysis and being followed by nephrology. Patient required multiple abdominal surgeries since his initial admission. Chest x-ray continues to show worsening pneumonia involving both lungs, right more so than left, I suspect there may be a component of ARDS. His initial presentation was the presentation of aspiration pneumonia to begin with and that was 3 weeks agoWBC count is 10.3 hemoglobin 8.6 sodium 131 potassium 4 chloride 100 bicarb 23 BUN is 111 creatinine 4.02 blood sugar is 248. Albumin is 1.9 Patient was evaluated today on , patient remains in the ICU, intubated and mechanically ventilated. Patient is on assist-control rate of 20 tidal volume 550 FiO2 35% and PEEP of 5 ABG showed a pO2 of 99 pCO2 39 pH of 7.44 patient is undergoing hemodialysis today, and the plan is to remove 2 L. He is remains on propofol at 35 mcg/kg/min, remains on TPN at 75 cc/h. Remains on Merrem. Patient is not requiring any pressors today. Yesterday patient did not tolerate to be off sedation long enough, and today we tried the same sedation interruption, and the patient did not do well post interruption of sedation, became extremely agitated restless, tachycardic, and could not fully assess mental status off sedation. Hence the patient was placed back on AC mode of mechanical ventilation, and the plan is to continue the same supportive care measures. Family updated on his condition and most likely the patient will end up requiring tracheostomy in the next few days.WBC count is 8.5 hemoglobin 8.2 basic metabolic profile is relatively unremarkable BUN is 89 creatinine 3.45 chest x-ray today showed stable chest, suspect some right-sided pleural effusion which would likely improve with hemodialysis/ultrafiltration. X-ray of abdomen showed nonspecific nonobstructive bowel gas pattern Patient was seen today on 12/04/2023, remains in the ICU, intubated mechanically ventilated, on assist-control rate of 20 tidal volume 550 FiO2 35% PEEP of 5 ABG showed a pO2 of 112 pCO2 38 pH of 7.45, hence no changes were made in ventilator settings. Patient is on propofol at 35 mcg/kg/min he is also on IV fluid at KVO TPN at 75 cc/h. Remains on hemodialysis remains on Lasix 80 mg IV push twice daily, remains on Merrem. This x-ray continues to show the same findi ngs/airspace disease in both lungs, not much of a change in the last 2 days, however his oxygenation seems to be improved. WBC count is 7.1 hemoglobin 7.7. Electrolytes are normal, BUN is elevated 77 creatinine 3.32, patient is on hemodialysis. His condition was discussed today with the at bedside, and I do not believe the patient is ready to be weaned or extubated, however he seems to get extremely agitated when he goes off propofol, today I plan to transition propofol to Precedex, give him a trial on Precedex and determine whether the patient becomes more appropriate and at least ready for any weaning trials. Clinically I doubt if this will happen but we will go ahead and try Patient was evaluated today on 12/05/2023, remains in the ICU, intubated mechanically ventilated, not much of a change noted in the last 24 hours. Remains on assist-control of 20 tidal volume 550 FiO2 35% PEEP of 5 ABG showed a pO2 of 90 pCO2 37 pH of 7.48 hence chose not to change any of his ventilator settings. Yesterday the patient failed again trial of weaning, and he was never anywhere near ready to be weaned in spite of placing him on Precedex and off propofol, at 1 point the patient became extremely agitated restless and he was biting on the endotracheal tube could not fully awake the patient and determine improvement in his mental status. Hence patient was placed back on propofol yesterday and he remains on propofol today. He is on propofol at 25 mcg/kg/min he is on TPN at 75 cc/h surgery is considering starting his J-tube feedings today. Remains on hemodialysis remains on Merrem remains on Lasix 80 mg IV push twice daily overall not much of a change his chest x-ray is basically about the same showing bibasilar airspace disease. Today I had a discussion with the regarding the option of tracheostomy extremely reluctant to have it done yet. Said that the patient had multiple complications with previous surgeries and she is afraid that he is going to have another complication with the surgeryWBC count is 10.2 hemoglobin is 8, basic metabolic profile is normal sodium 130 BUN 70 creatinine 2.89 Patient was seen today on 12/06/23, remains in the ICU, intubated mechanically ventilated, his ventilator settings are assist-control rate 20 tidal volume 550 FiO2 35% and PEEP of 5 ABG showed a pO2 of 103 pCO2 36 pH of 7.47 patient opens eyes but does not follow any other instructions. He is now off propofol for the last 24 hours, he is maintained on Precedex at 0.4, TPN at 75 cc/h vital AF at 5 mL/h. Patient remains on Merrem, patient did not receive dialysis today because issues related to occluded dialysis catheter. Nonetheless the patient is making urine, and continues to improve with diuretics. Chest x-ray continues to show bibasilar airspace disease, not much of a price changer the last 1 week.WBC count today is 11.8 hemoglobin is 7.9.Basic metabolic profile is normal BUN is 92 creatinine 3.74. Blood sugar is 226. Family is at bedside, considering his overall mental status at this point, not quite ready to start checking weaning parameters, and is not ready for weaning. Nonetheless I plan to keep him on Precedex, and hopefully avoid narcotics and other sedatives. His mentation starts clearing a bit more, then will start trials of weaning parameters and/or weaning trials Patient was seen today on 12/07/2023, remains in the ICU, intubated and mechanically ventilated, on assist-control rate of 20 tidal volume 550 FiO2 35% PEEP of 5 ABG showed a pO2 of 83 pCO2 33 pH of 7.50 hence the tidal volume was cut down to 500. Patient remains off propofol remains off narcotics is only on Precedex for sedation at 0.6 mg/kg/h. He is on norepinephrine at 0.02 TPN at 75 cc/h IV fluid at KVO vital AF at 10 mL/h is also on Merrem. Neurologically I am concerned about this patient neurological status, does not seem to be waking up much, he opens his eyes but does not follow any instructions and spite of sedation hold for quite some time. Hence I am recommending a CT of the brain and multiple recommending a neurological consultation on this patient. WBC count is 18 7 hemoglobin is 8.4, basic metabolic profile is normal BUN is 75 creatinine 2.95, patient is back on dialysis, he had a new hemodialysis catheter placed yesterday by vascular surgery, and he will be restarted back on hemodialysis. CT of the brain done shortly after evaluating the patient showed no acute intracranial process chest x-ray basically about the same, continues to show small left and moderate right basilar infiltrate. Has not changed much over the last 1 week, patient remains on antibiotics. Patient was seen today on 12/08/2023, remains in the ICU, intubated and mechanically ventilated, remains on assist-control rate of 20 tidal volume 500 FiO2 35% PEEP of 5 ABG showed a pO2 of 88 pCO2 37 pH of 7.47 hence no changes were made in ventilator settings. Chest x-ray is showing slight increase in his right-sided pleural effusion, however his oxygenation seems to be about the same, and the patient is responding to Lasix given at 80 mg IV push every 12 hours, he is also doing well with hemodialysis he had 2 L removed yesterday and 2 L the day before. Hence will not recommend thoracentesis at this point. But the pleural effusion will need to be closely monitored. Patient remains off propofol he is on Precedex at 0.6 mcg/kg/h. For the last 2 days, and his mentation is not much different from baseline. Continues to open his eyes and does not follow any other instructions has the patient is clearly not ready for weaning trials or extubation. Brought up the issue of tracheostomy again with the , she is still reluctant to proceed with tracheostomy on him at this point. Patient remains on Merrem, remains on TPN but his enteral feeding will be advanced today to full goal, and if that happens then we will can discontinue TPN. Patient is receiving vital AF 1.2@10 mL/h at this point.WBC count is 19.3 hemoglobin 7.6. Basic metabolic profile is normal BUN is 72 creatinine 2.99 blood sugar ranging between 250 up to 334. 12/09/23 - patient seen at bedside today, remaining in the ICU, intubated and mechanically ventilated, remaining on assist-control rate of 20, tidal volume 500, FiO2 30%, PEEP of 5 and oxygen saturation of 100%. Patient is on day 27 of his hospital stay (admitted 11/11), day 15 of this current ICU stay (readmit to the ICU 11/24) and day 15 of this current period of time on the ventilator (placed 11/24). ABG showed pO2 100, pCO2 36, pH 7.47. Chest x-ray was deemed to be stable, however possibly with slight improvement noted on the left with a right-sided pleural effusion remains evident however the patient's oxygenation remains to be about the same. Continue to receive 80 mg IV Lasix every 12 hours and is receiving daily hemodialysis, in which he has been having 2 L removed the past couple of days, hemodialysis yet to occur today. His creatinine is 3.57 (compared to 2.99 yesterday) and BUN 98 (compared to 72 yesterday). Due to this response to diuresis and hemodialysis, no thoracentesis recommended at this point however pleural effusion will need to continue to be monitored. Patient shon off propofol, he is on Precedex at 0.4 mcg/kg/h. Due to his mentation remaining near baseline, neurology had been consulted who ordered an EEG which showed diffuse background slowing of his severe degree which is suggestive for generalized cerebral dysfunction and can be seen with toxic metabolic encephalopathy, as well as the presence of sporadic intermittent, some higher amplitude, sharply contoured waves of generalized distribution. Because of this per neurology's recommendation, patient started on Keppra 500 mg twice daily. The patient does seem to be having some improved mentation, with opening his eyes and responding to commands some of this morning. Spontaneous breathing trial to be attempted today, to see if the patient will be able to come off of mechanical ventilation. If that is unable to occur, discussed with the patient as well as his and one of his daughters that a tracheostomy would be the most appropriate next course of action due to the potential dangers of sustained endotracheal intubation for prolonged period of time. The , while reluctant, seem to acknowledge that this is the appropriate course of action. He remains receiving meropenem 1 g nightly. He remains on TPN 75 mL/h, which she has been on since 11/21 (18), but his enteral feeding has been vital 1.2 AF at 10 mL/h with a goal rate of 80 mL/h. Patient drained 60 mg of serosanguineous fluid from his RAYA. His WBCs increased to 21.5 (compared to 19.3 yesterday), hemoglobin dropped to 7.2 (compared to 7.6 yesterday), hematocrit dropped to 22.0 (compared to 22.9 yesterday) and patient procalcitonin remains elevated at 3.07. 12/10/23 - Patient seen at bedside today, remaining in the ICU, intubated and mechanically ventilated, remaining on assist-control rate of 20, tidal volume 500, FiO2 30%, PEEP of 5 and oxygen saturation of 100%. Patient is on day 28 of his hospital stay (admitted 11/11), day 16 of this current ICU stay (readmit to the ICU 11/24) and day 16 of this current period of time on the ventilator (placed 11/24). ABG showed pO2 93, pCO2 37, pH 7.47, showing evidence of a mild metabolic alkalosis. Chest x-ray today showed stable disease compared to yesterday. He received levo overnight due to atypical blood pressure, patient's TPN was up to 120 due to the change in formula. Patient is scheduled to undergo tracheotomy today (12/09) at 16:30. Per the nurse and the overnight staff patient continues to open his eyes and shows some responsiveness to commands. Per nephrology's recommendation dialysis to be held today due to the patient going for the tracheotomy later, as well as the dip in blood pressure seen after yesterday's dialysis session which required Levophed. Patient's Hgb this morning 6.6, will be given 1 unit today, which will be the second unit he has received during his hospital course. Patient's airway resistance noted to be 3.3 cm/L/s, static lung compliance shown to be 45 mL/cm H2O and dynamic compliance 33 mL/cm H2O. 12/11/23 - Patient seen at the bedside, remaining in the ICU, with a tracheotomy tube and mechanically ventilated while receiving dialysis. Patient remains on assist-control rate of 20, FiO2 30%, PEEP of 5 and has an oxygen saturation of 97%. Patient is on day 29 of the hospital stay (admitted 11/11), day 17 of his current ICU stay (readmitted to the ICU 11/24) and day 17 of his current period of time on the ventilator (placed 11/24). ABG today showed pO2 115, pCO2 38, pH 7.44 continuing to show evidence of a mild metabolic alkalosis. Chest x-ray today showed stable disease. Patient had tracheotomy placed yesterday afternoon (12/09) without any complications. Patient has had 3 consecutive days of attempting spontaneous breathing trials in an effort to wean the patient off the ventilator, all of which failed to this point. Beginning today the patient's antibiotics (meropenem) will be discontinued and we will begin weaning his propofol down from 25 mcg/kg/min. As the patient is weaned off of the propofol, 0.5 Dilaudid and 1 mg IV Ativan to be used every 6 hours as needed. Patient is continuing to receive normal saline 20 cc/h, and has a total of 200 mL of serosanguineous fluid from his RAYA drain. TPN to continue at a rate of 120 mL/h additionally tube feeds, which had been held due to the patient receiving s traight catheter yesterday, will be restarted today with an ultimate goal being to receive enteral nutrition at a rate of 80 mL/h. TPN to continue until able to increase the enteral nutrition to at least 50 mL/h, as per the dietitian's recommendation. Will be exploring the possibility of the patient being moved to select specialty. 12/12/23 - Patient seen at the bedside this morning, in ICU room 253, while receiving and EEG, no significant events overnight. Patient remains with tracheotomy and is mechanically ventilated on assist control with a rate of 20, tidal volume 500, FiO2 30%, PEEP of 5 with an oxygen saturation of 98%. Patient is on day 30 of the hospital stay (admitted 11/11), day 18 of his current ICU stay (readmitted to the ICU 11/24) and day 18 of his current period of time with mechanical ventilation (placed in 11/24). ABG today showed pO2 92, pCO2 36, pH is 7.49 continue to show signs of a combined respiratory and metabolic alkalosis. WBC 17.9, Hgb 7.4, Hct 22.6, PLT 151; sodium 133, potassium 4.0, HCO3 27, BUN 88, creatinine 2.96. Chest x-ray done today continuing to show patchy infiltrate throughout the right lung with layering effusion. Patient is continuing to receive normal saline 20 cc/h, continues to receive Dilaudid 0.5 mg IV push every 6 hours as needed, as well as Ativan 1 mg IV every 6 hours as needed. Patient is no longer maintained on propofol. TPN continues at a rate of 120 mm/h and EN vital AF at 30 mL/h with a goal of 40 mL/h. Once goal is reached, TPN can be discontinued and patient will be switched over to Nepro 50 mL/h. Following the patient having 3 consecutive days of attending spontaneous breathing trials and effort to wean, we will begin trying the patient with CPAP and pressure support in effort to wean, today's trial the patient will be placed on PS 5 and PEEP of 5 for 25-45 minutes, or as he is able to tolerate it. Disc ussed with the patient's the importance of continuing to wean the patient's with trials, in an effort to build up some of the strength in his lungs to better be able to tolerate breathing on his own. Will continue to evaluate for possible placement in a long-term acute care facility. 12/13/23 - Patient seen at the bedside this morning, in ICU room 253, with no significant events overnight noted. Patient remains with tracheotomy and is mechanically ventilated on assist control with a rate of 20, tidal volume 500, FiO2 30%, PEEP of 5 with an oxygen saturation of 98%. Patient is on day 30 one of the hospital stay (admitted to 11/11), day 19 of his current ICU stay (readmitted to the ICU 11/24) and day 19 of his current period of time with mechanical ventilation (placed 11/24). ABG today showed pO2 87, pCO2 36, pH 7.48 continue to show signs of a combined respiratory metabolic alkalosis. WBC 17.3, Hgb 8.0, Hct 25.3, PLT 191; sodium 136, potassium 4.1, BUN 116, creatinine 3.17. This x-ray done today continues to show stable disease. Patient had an EEG completed yesterday (12/11) which showed an abnormal EEG, study being limited because of diffuse myogenic artifact. Background slowing suggestive of severe encephalopathy. Otherwise no appreciable epileptiform discharges, focal slowing, or seizure noted during the exam. Patient continues to receive Dilaudid 0.5 mg IV push every 6 hours as needed, as well as Ativan 1 mg IV every 6 hours as needed. Patient's TPN has been stopped, he is not receiving Nepro at 50 mL/h, which is goal. Patient Solu-Medrol has been discontinued, patient now receiving 30 mg prednisone daily. Patient's trial yesterday with CPAP and pressure support with the patient was sent PS of 5 and PEEP of 5, patient tolerated 40 minutes well it was noted that his respiratory rate increased and his minute ventilation also increased during this time. Will continue with another weaning effort today and continue to reassess how the patient tolerates. He will be receiving hemodialysis today, with the plan to hold over the weekend and then reassess Saturday per nephrology. Additionally IV Lasix has been discontinued on this patient, nephrology did state that he may need to resume receiving the Lasix if the urine output tapers. Progress note dated December 14, 2023. The patient is seen today in room 253. The patient remains on the mechanical v entilator. His settings include volume assist-control, rate 20, tidal volume 500, FiO2 30%, PEEP of 5. Blood gases show pO2 of 76, pCO2 of 36, pH of 7.47. The patient is getting saline at 10 cc an hour, and Nepro at 50 cc an hour which is goal. The patient will go back on pressor support of 5 and CPAP of 5 today. Yesterday, he spent 2-1/2 hours on pressure support. The patient did have a tem perature last night. He discussed some purulent drainage at the wound site. I have asked surgeon to come back and see the patient. In addition, the nurse will get blood, urine, sputum, and wound cultures going. He is not on any antibiotics. We will check a procalcitonin level. White count of 16.7, hemoglobin 8.1, hematocrit 24.5, platelet count is normal. Sodium 135, potassium 3.9, chlorides 103, CO2 24, BUN 106, creatinine 3.04. Calcium is 7.1. Magnesium is 2.0. Urine is yellow, with 1+ protein, 6 WBCs, and rare bacteria. Chest x-ray shows a stable chest x-ray, which is largely unchanged. Progress note dated December 15, 2023. 73-year-old male seen again in room 253. The patient remains on mechanical ventilator. Blood gases show pO2 of 78, pCO2 of 36, pH of 7.47. The patient is getting saline at KVO, and Nepro at 50 cc an hour which is goal. The patient did a spontaneous breathing trial yesterday, and went about 6 hours on PSV 5, CPAP of 5. The patient's procalcitonin level was elevated at 1.92. We added back Zosyn. Yesterday we did sputum, blood, urine, and wound cultures. The patient will have another spontaneous breathing trial today. Current labs include a white count 16.3, hemoglobin 7.5, hematocrit 22.6, and a normal platelet count. Sodium 138, potassium 3.5, chlorides 105, CO2 24, BUN 125, and creatinine 3.22. Glucose is 220. Calcium is 6.9. Chest x-ray shows a right- sided pleural effusion, and some similar changes, to the previous x-ray. This is a 73-year-old white male with history of chronic abdominal pain for the last 8 months has been treated with Protonix 40 mg daily for the last 3 months with no improvement. Patient had a 22 pound weight loss in the last [address] of the abdomen and pelvis 3 weeks ago showed thickening of the antral wall with pathological adenopathy posterior to the stomach suspicious of neoplasm. Today the patient underwent elective upper endoscopy to evaluate further, patient received IV sedation by anesthesia endoscope was inserted into the mouth, esophagus was intubated without any difficulty there was evidence of large amount of liquid and solid food noted in the stomach suggestive of gastric out let obstruction. Scope could not be advanced through the pylorus, however in the prepyloric area there was a large superficial ulceration identified with multiple biopsies were done from this area. The body cardia and fundus could not adequately visualize because of large amount of retained food in the stomach. Scope was withdrawn back to the stomach and upon careful examination the mucosa of the antrum body and cardia as well as the fundus appeared normal. Procedure was being performed and biopsies were done patient threw up and subsequently became hypoxic there was clearly evidence of witnessed aspiration anesthesia intubated the patient, procedure was terminated, and the patient was transferred to the ICU, this consult was initiated. Patient is now on assist- control rate of 20 tidal volume 500 FiO2 70% PEEP of 10 ABG is pending, earlier ABG showed profound hypoxia patient is on propofol at 50 mcg/kg/min, next ABG is pending. Chest x-ray showed chronic changes without evidence of acute pulmonary disease. 12/20/2023, the patient is being seen for a follow-up. More alert and awake compared to yesterday. He is able to move his fingers and toes on today's evaluation. Following commands. Nevertheless, his J tube has been clogged and was unable to utilize the tube that has been some leaks around the tube. No abdominal distention. No nausea or emesis. Hemodynamically stable. Will undergo hemodialysis today. He remains on pressure control mode of mechanical ventilation at rate of 16, pressure of 10, +5 PEEP with an FiO2 of 30%. Chest x-ray from today is essentially unchanged with a stable cavity in his right upper lobe. White cell count of 15.7, hemoglobin 7.2, platelet count is 203, blood gas showed a pH of 7.49 with a pCO2 of 33 and pO2 of 73. BUN is 88 with a creatinine 1.89 and sodium is at 141 with a potassium level of 4.1. He is producing adequate amount of urine output. Fluid balance has been -900 cc over the past 24 hours. Normotensive. Remains on a combination of Zosyn and daptomycin. Remains on Levemir insulin 24 units daily. This is currently on hold as the patient has not been able to obtain enteral feeding. Wound VAC still in place. 12/21/2023, the patient remains on the mechanical ventilator. Overnight, the patient experienced discomfort in his abdomen and he was restless. Based on that, the patient was placed on a higher dose of Precedex which is currently running at 0.6 mcg/kg/h. The patient was also asynchronous with the mechanical ventilator and based on that, the patient was switched to an AC mode and currently is at a rate of 16, tidal volume of 400, FiO2 of 30% with a PEEP of 5. The patient is adequately sedated for now. Chest x-ray remains unchanged. Tracheostomy tube in place and the patient is having increased amount of respiratory secretions. J tube needs to be replaced today and this will be done by his general surgery as the tube remains clogged. Urine output is low order of 30 cc an hour. Afebrile. Remains on Zosyn and daptomycin. White cell count is 16.9, hemoglobin 7.4 and a platelet count of 280. Blood gas from today showed a pH of 7.46 with a pCO2 of 36 and pO2 of 82. Sodium levels of 144, BUN is 19 with a creatinine of 2.2 and a serum bicarb is at 23. The abdominal wound remains unchanged. RAYA drain is serosanguineous. 12/22/2023, patient remains on Precedex at 0.4 mcg/kg/min. Arousable. Communicates. Profoundly weak. Remains on the mechanical ventilator with a rig ht lung abscess. SIMV mode mode rate of 16, tidal volume of 400, FiO2 30% with a PEEP of 5, with a pressure support of 8. Blood gas showed a pH of 7.46 with a pCO2 of 32 and a pO2 of 82. Chest x-ray remains unchanged with a right upper lobe cavitating lesion/opacity and a suspected lung abscess. This is rated Pseudomonas and the patient remains on IV Zosyn. He remains on daptomycin. Urine output is in order of 50 cc an hour.. The J-tube was unplugged yesterday. Nevertheless, the tube itself is malfunctioning and there is drainage around the tube requiring dressing changes the dressings being soakedConstantly. The patient's white cell count is 12.3 with a hemoglobin 7.7. Sodium is at 149, BUN 91 with a creatinine of 2.3. Bicarb is at 20. Undergoing hemodialysis periodically. Last hemodialysis was on 12/21/2023. Currently NPO. Abdominal wound is clean and the patient has a wound VAC in place. RAYA drain output is serosanguineous. Patient was seen today on 12/23/2023, remains in the ICU, intubated and mechanically ventilated. Patient is on IMV with pressure support/IMV 16, pressure support of 8, tidal volume 400, PEEP of 5. Patient seems to be doing well with that kind of mode of mechanical ventilation, ABG showed a pO2 of 76 pCO2 28 pH of 7.50. I changed his rate from 16-8 kept him otherwise on the same ventilator settings. Plan to gradually go down on the IMV rate until we can get him on pressure support of 8 and CPAP. Patient is requiring Precedex at 0.4 m cg/kg/h, he is on D5W at 50 cc/h. Remains on antibiotics in the form of daptomycin and Zosyn, chest x-ray continues to show bilateral airspace disease and right upper lobe lung abscess. Continues to have a bit of a leak from his J-tube being addressed by surgery has a wound VAC, and he had a RAYA drain. Mentation arce the patient is a bit more appropriate, opens his eyes, follows very simple instructions, seems to comprehend. Patient has a left brachial PICC line, he also has a left groin hemodialysis catheter. WBC count is 10.1 hemoglobin is 7 sodium is 149 potassium 4 chloride is 121 BUN is 86 creatinine 2.31. Blood sugar is 173. Remains on enteral feeding via J-tube, a bit of a leak is noted, and surgery is to address this. Sputum cultures have grown Klebsiella and Pseudomonas and remains on proper antibiotics Patient was seen and examined today on 12/24/2023, patient remains in the ICU, and mechanically ventilated. On IMV mode of 8 pressure support of 8 tidal volume 400 FiO2 30% and PEEP of 5 ABG showed a pO2 of 81 pCO2 32 pH of 7.45. Patient remains on daptomycin and Zosyn, remains on Precedex at 0.4 mcg/kg/h intermittently receiving Dilaudid for pain. Feeding arce is presently on hold, patient had a leak around the jejunostomy tube, surgery is recommending a trick le feed or TPN if could not use the J-tube. Patient is arousable follows simple instructions, and today I had a chance to get rid of the IMV mode, and I am recommending a pressure support of 8 and CPAP. For the last few hours the patient has been tolerating this mode of mechanical ventilation, however he is not quite ready to go to [facility] at this point. Chest x-ray continues to show significant opacity in the right upper lobe and airspace disease in the right lower lobe. Previously patient had a CT of the chest showing right upper lobe abscess. Again he remains on Zosyn and daptomycin.Labs today showed WBC count of 10.6 hemoglobin 7.8 sodium is 147, patient is now on D5W at 100 cc an hour his bicarb is 19 BUN 74 creatinine 2.08, gradually improving, his last hemodialysis was on the , nephrology is considering removing his dialysis catheter in the left groin and I believe that is appropriate patient was seen and examined today on 12/25/2023, remains in the ICU, intubated and mechanically ventilated. Patient had to be placed back on assist-control mode of mechanical ventilation yesterday, mostly because he developed significant agitation and restlessness, and ongoing persistent cough with some air leak from the cough of that tracheostomy. Patient had to be sedated and he was placed on propofol and he remains on propofol at 50 mcg/kg/min. Maximal dose of Precedex yesterday could not calm him down, hence we had to transition him from pressure support/CPAP mode of mechanical ventilation to assist-control mode of mechanical ventilation and fully sedated him with propofol replacing Precedex. Today the patient is sedated, he is on assist-control rate of 16 ti sierra volume 400 FiO2 30% PEEP of 5 ABG showed a pO2 of 98 pCO2 30 pH of 7.45 chest x-ray is basically the same showing significant airspace disease in the right upper lobe and right lower lobe. Remains on daptomycin and Zosyn. His IV fluid was transitioned to D5 4 5 from D5W sodium today is 141. His urine output is about 40 to 50 cc/h, renal profile is improving with steady trending of creatinine down. Patient continues to have leakage around the jejunostomy tube. Patient is being followed by surgery no specific recommendation made except to continue the same and except the leak as it isLabs today showed WBC count of 11.5 hemoglobin 8.2 basic metabolic profile is normal BUN is 60 creatinine down to 1.81 Patient seen today on 12/26/2023, remains in the ICU intubated mechanically ventilated sedated patient is on assist-control rate of 16 tidal volume 400 FiO2 30% PEEP of 5 ABG showed a pO2 of 82 pCO2 34 pH of 7.43. Patient is now on TPN at 30 cc/h propofol at 50 mcg/kg/min hemoglobin is down to 6.8 today and he is receiving a unit of packed RBCs. His IV fluids at 50 cc/h in the form of 0.9 normal saline. He was last night on a small dose of norepinephrine at 0.01 mcg/kg/min and is presently on hold. Antibiotics arce patient is on Zosyn daptomycin and Eraxis. Chest x-ray continues to show significant airspace disease involving the right upper lobe and right lower lobe not much of a change noted on the chest x-ray. Clinically the patient is about the same, today I plan to discontinue propofol, arrange for the patient to go on Precedex, and assess mental status off sedation. If tolerated, may transition the patient again to pressure support and CPAP type of mechanical ventilation, but he is not ready to go to that transition yet. WBC count is 11.6 hemoglobin 6.8. ABG today showed a pO2 of 82 pCO2 34 pH of 7.43 potassium is 3.3 being addressed accordingly BUN is 53 creatinine 1.84 Patient was evaluated today on 12/27/2023, remains in the ICU intubated and mechanically ventilated. Patient is presently on IMV mode of mechanical ventilation with pressure support rate of 16 pressure support 14 tidal volume 400 FiO2 30% and PEEP of 5 ABG showed a pO2 of 99 pCO2 31 pH of 7.44. Intermittently the patient has been experiencing episodes of extreme agitation and restlessness he is on Precedex at 0.5 mcg/kg/h. Patient is on IV fluid 0.9 normal saline at 50 cc/h and is also receiving TPN. Remains on Eraxis daptomycin and Zosyn patient is intermittently requiring Dilaudid, Ativan does not seem to help his agitation and restlessness. But Dilaudid does hence I would recommend 0.5 mg every 2-3 hours as needed for agitation. Patient has good urine output roughly about 100 cc/h. Continues to have leakage around the jejunostomy tube, and patient is undergoing the J-tube exchange today. Family is at bedside, seems to be quite anxious about his overall condition, and I explained to the that we are doing the best we can considering his critical illness situation and critical illness polyneuropathy. Patient is profoundly weak, and weaning the patient from mechanical ventilation is almost impossible. At least not at this point yet WBC count is 10.9 hemoglobin is 8.1 basic metabolic profile is normal BUN is 46 creatinine 1.90 patient has been off hemodialysis since the . Chest x-ray continues to show stable findings with right upper lobe opacity and right lower lobe opacity and possibly a small right-sided pleural effusion Was evaluated today on 12/28/2023, patient remains in the ICU, intubated and mechanically ventilated, on IMV mode of mechanical ventilation rate set at 16 he is on pressure support of 14 tidal volume 400 FiO2 30% and PEEP of 5 ABG showed a pO2 of 113 pCO2 31 pH of 7.43. No major events overnight, patient is still requiring Precedex at 0.7 mcg/kg/h. He is on TPN as we could not use his jejunostomy tube, no jejunostomy tube was done yesterday, IV fluid is 0.9 at 50 cc/h remains on TPN at 65 cc/h patient is on Eraxis daptomycin and Zosyn. Chest x-ray is showing improvement in his right upper lobe airspace disease/lung abscess and there is a slight improvement in his right lower lobe opacity. Kathryn ent is arousable but does not follow any instructions, patient gets agitated easily if aroused and he started gagging on the tracheostomy tube. Family is at bedside, again updated on his condition. WBC count is 7.6 hemoglobin 7.9. Basic metabolic profile is normal BUN is 45 creatinine down to 1.51 patient has not had any dialysis since 12/17, his renal functioning and urine output continues to improve, hence I am strongly recommending removing his dialysis catheter Patient was seen on 12/29/2023, remains intubated and mechanically ventilated, in the ICU, on IMV of 16 tidal volume 400 FiO2 30% PEEP of 5 ABG showed a pO2 of 105 pCO2 31 pH of 7.45. Remains on Precedex at 0.8 mcg/kg/h, remains on TPN at 65 cc/h IV fluid 0.45 at 50 mL/h remains on multiple antibiotics and antifungal including Eraxis daptomycin and Zosyn. His hemodialysis catheter has been removed, urine output has been excellent renal functioning is improving chest x- ray is showing improvement in his right upper lobe airspace disease/pulmonary abscess. Right lower lobe seems about the same with chronic opacity and possibly some small right-sided pleural effusion. Family is at bedside, patient is arousable but does not follow any instructions. Gets extremely restless and agitated easily hence patient is receiving Dilaudid which seems to be working much better for this patient than benzodiazepines. And we are trying to avoid Ativan, trying to avoid any propofol as much as possible. I believe his drainage from the jejunostomy tube is becoming less and less, hence we could start considering early next week arrangement to possibly transfer the patient to a select care specialty. In the meantime I am recommending that we go down on the IMV rate by 2 every 2 hours the goal is pressure support of 14 and IMV of 8. Progress note dated December 30, 2023. This is a 73-year-old male who is now been in the hospital for 48 days. The patient was admitted back on November 11. Currently, he is seen in the intensive care unit, room 253. The patient is currently on synchronized IMV mode, rate of 8, pressure support of 14, PEEP of 5, FiO2 30%, and a backup tidal volume of 400 cc. Blood gases showed a pO2 of 87, pCO2 of 31, and a pH of 7.42. The patient will be switched back to the volume assist-control mode, as he is not ready to be weaned. His minute volume is nearly 18 L/min. He is breathing at a rate of about 40 times per minute. He currently is on Precedex 0.8 mics per kilogram per minute, TPN at 90 cc an hour, and half-normal saline at 50 cc an hour. The patient continues on Zerbaxa, Eraxis, and daptomycin. White count 11.5, hemoglobin 8.1, hematocrit 25, platelet count of 78,000. Sodium 142, potassium 4.2, chlorides 119, CO2 20, BUN 42, and creatinine 1.22. Glucose is 178. Albumin is 1.9. Sputum from December 24 shows evidence of Citrobacter freundii and Pseudomonas aeruginosa. Blood cultures from the same day were positive for Staphylococcus. Chest x-ray shows extensive pleural-parenchymal opacities, in both lungs, and the chest x-ray is largely unchanged from the pre vious days x-ray. Progress note dated December 31, 2023. 73-year-old male now here in the hospital for 49 days. The patient was admitted way back on November 11. He is seen today in room 253. Family members are at the bedside. The patient currently is on volume assist-control, rate 32, tidal volume 400, FiO2 30%, PEEP of 5. Blood gases show pO2 of 94, pCO2 of 35, pH is 7.40. Unfortunately, the patient is not synchronous with the ventilator, and so we switched to pressure regulated volume control or VC plus. We set an inspiratory time at 0.8 seconds, and the targeted tidal volume of 450 cc. The patient is on TPN at 70 cc an hour, saline at KVO, propofol at 40 mcg/kg/min. The patient continues on Eraxis, daptomycin, and Zerbaxa. Current labs include a white count 12.8, hemoglobin 7.3, hematocrit 22.4, and a platelet count of 67,000. Sodium 140, potassium 3.6, chlorides 119, CO2 20, BUN 43, creatinine 1.15. Glucose is 223. Calcium is 6.8. Today's chest x-ray is largely unc hanged. Objective - Vital Signs Vital signs: Vital Signs Temp 98.1 F 12/31/23 04:00 Pulse 82 12/31/23 08:25 Resp 24 12/31/23 07:00 BP 103/71 12/31/23 02:00 Pulse Ox 97 12/31/23 07:00 FiO2 30 12/31/23 08:23 Intake & Output 12/30/23 12/31/23 12/31/23 18:59 06:59 18:59 Intake Total 4100.557 0768 100 Output Total 1130 1150 90 Balance 318.600 50 10 Weight 101.6 kg 101.1 kg Intake: IV 320 120 10 0.45 250 0.9 70 120 10 Intake, IV Titration 273.600 200 Amount Dexmedetomidine/0.9% NaCl 173.600 (Pmx) 400 mcg In Empty Bag 1 bag @ 0.2 MCG/KG/HR 4.94 mls/hr IV .[id number] [facility] Rx#:[id number] propofoL 1,000 mg In 100.000 200 Empty Bag 1 bag @ 15 MCG/ KG/MIN 9.144 mls/hr IV . [id number] [facility] Rx#:[id number] TPN/PPN 855 880 90 TPN 855 880 90 Output: Gastric Drainage 200 Drainage 40 Right Abdomen 40 Urine 1130 910 90 Other: Voiding Method Indwelling Catheter Indwelling Catheter ABP, PAP, CO, CI - Last Documented Arterial Blood Pressure 141/61 - Exam No acute distress, somewhat lethargic, in no acute distress, with a midline tracheostomy tube. HEENT examination is grossly unremarkable. Neck supple. Full range of motion. No adenopathy thyromegaly or neck vein distention. Midline tracheostomy tube noted. Cardiovascular examination reveals regular rhythm rate. S1-S2 normal. No S3 or S4. No discernible murmur noted. Lungs reveal mild scattered rhonchi. No wheezes or crackles. Breath sounds equal. Abdomen soft, without bowel sounds. Midline incision, there is for the most part intact, although there is some purulence noted, with some minimal dehiscence Extremities are intact. No cyanosis clubbing or edema. Skin is without rash or lesion. Neurologic examination is difficult to assess. - Labs CBC & Chem 7: 12/31/23 04:45 12/31/23 04:45 Labs: Abnormal Lab Results - Last 24 Hours (Table) 12/30/23 12/30/23 12/30/23 Range/Units 12:24 17:52 23:50 WBC (3.8-10.6) k/uL RBC (4.30-5.90) m/uL Hgb (13.0-17.5) gm/dL Hct (39.0-53.0) % RDW (11.5-15.5) % Plt Count (150-450) k/uL Neutrophils # (1.3-7.7) k/uL ABG O2 Saturation (94-97) % Hemoglobin (13.0-17.5) gm/dL Chloride (98-107) mmol/L Carbon Dioxide (22-30) mmol/L BUN (9-20) mg/dL Glucose (74-99) mg/dL POC Glucose (mg/dL) 222 H 226 H 226 H (70-110) mg/dL Calcium (8.4-10.2) mg/dL 12/31/23 12/31/23 12/31/23 Range/Units 04:45 04:45 04:50 WBC 12.8 H (3.8-10.6) k/uL RBC 2.43 L (4.30-5.90) m/uL Hgb 7.3 L (13.0-17.5) gm/dL Hct 22.4 L (39.0-53.0) % RDW 18.4 H (11.5-15.5) % Plt Count 67 L (150-450) k/uL Neutrophils # 9.3 H (1.3-7.7) k/uL ABG O2 Saturation 98.2 H (94-97) % Hemoglobin 7.0 L* (13.0-17.5) gm/dL Chloride 119 H (98-107) mmol/L Carbon Dioxide 20 L (22-30) mmol/L BUN 43 H (9-20) mg/dL Glucose 198 H (74-99) mg/dL POC Glucose (mg/dL) (70-110) mg/dL Calcium 6.8 L (8.4-10.2) mg/dL 12/31/23 Range/Units 05:58 WBC (3.8-10.6) k/uL RBC (4.30-5.90) m/uL Hgb (13.0-17.5) gm/dL Hct (39.0-53.0) % RDW (11.5-15.5) % Plt Count (150-450) k/uL Neutrophils # (1.3-7.7) k/uL ABG O2 Saturation (94-97) % Hemoglobin (13.0-17.5) gm/dL Chloride (98-107) mmol/L Carbon Dioxide (22-30) mmol/L BUN (9-20) mg/dL Glucose (74-99) mg/dL POC Glucose (mg/dL) 223 H (70-110) mg/dL Calcium (8.4-10.2) mg/dL Microbiology - Last 24 Hours (Table) 12/28/23 12:22 Catheter Tip Culture - Final Catheter Tip Assessment and Plan Assessment: Acute hypoxemic respiratory failure with failure to wean from mechanical ventilation, S/P tracheostomy on December 10, 2023. Respiratory failure, requiring reintubation, on November 25, 2023. Acute hypoxic respiratory failure requiring intubation/mechanical ventilation secondary to aspiration during EGD on 11/12/2023. Patient was extubated on 11/14/2023. S/P J-tube placement 11/16/2023, which continues to leak. Septic shock. Acute kidney injury secondary to sepsis, and ATN. Acute bowel obstruction, diagnosed via CT scan, November 24, 2023. Acute aspiration pneumonia. Acute aspiration during upper endoscopy most likely secondary to gastric outlet obstruction secondary to non-Hodgkin's lymphoma. Chronic abdominal pain, secondary to B-cell lymphoma. Unexplained weight loss most likely secondary non-Hodgkin's lymphoma involving the stomach. Paroxysmal atrial fibrillation. Chronic anemia. Plan: Plan dated November 21, 2023. The patient is seen today in room 517. The patient is on 3 L of oxygen. He continues on Zosyn. Continues on tube feeds. He had a CT scan of the abdomen and pelvis. His respiratory status is improved. We will continue to follow. Prognosis is guarded. Labs, x-rays, medications are reviewed. The patient is apparently scheduled for an outpatient PET scan. Plan dated November 22, 2023. The patient appears very stable. His is in the room with him. Labs, x- rays, and medications are reviewed. The patient continues on Zosyn. Resting ro om air saturation was 89%. Chest CT, revealed bilateral patchy and basilar infiltrates. We will continue to follow make recommendations along the way. Prognosis is guarded. The patient was diagnosed with a gastric outlet obstruction, secondary to non-Hodgkin's lymphoma. Plan dated November 23, 2023. The patient is seen today in room 517. He is resting comfortably. He continues on saline at 10 cc an hour. He is getting tube feedings with Pivot at 20 cc an hour. He has been weaned down to 2 L of oxygen. He continues on Zosyn. Labs, x-rays, and all medications are reviewed. Prognosis is guarded. We will continue to follow. Plan dated November 24, 2023. The patient will be admitted to the intensive care unit. I believe he deserves to be an ICU patient. I did speak to the surgeon. Labs, x-rays, and medications are reviewed. No additional recommendations are made. Prognosis is guarded. The patient has now been in the hospital for 12 days. We will continue to follow. He continues on Zosyn. Plan dated December 14, 2023. The patient is seen today in room 253. Currently, the patient is on the ventilator. He will have another PSV/CPAP trial. Apparently yesterday, he went for about 2-1/2 hours before he required to be placed back on the ventilator. The patient is getting saline at 10 cc an hour, and Nepro tube feedings at 50 cc an hour, which is goal. The patient had a fever, and will be recultured. In addition, the midline incision in the abdomen, shows some evidence of purulence, and will have a surgeon, take a look at that. Currently, the patient is not on any antibiotics. We will recheck a procalcitonin level. One of the family members was in the room, and was updated. Plan dated December 15, 2023. The patient actually spent about 6 hours on pressor support yesterday. The patient will have another spontaneous breathing trial today. The patient remains off of all sedation. He is getting Ativan and Dilaudid as needed. He is receiving tube feedings at goal. Labs, x-rays, and medications are reviewed. The repeat procalcitonin level was elevated at 1.92. We added Zosyn empirically. He had pancultures done yesterday. Labs, x-rays, and all medications are reviewed. Prognosis is guarded. An update was given to the daughter and to the right. Dictation was produced using [employer] software. Please excuse any grammatical, word or spelling errors. Plan dated December 30, 2023. The patient is seen today in room 253. The patient has now been in the hospital for 48 days. He was admitted way back on November 11. The patient currently is not ready to be weaned, given his high respiratory rate, and high minute volume. The patient is converted back to volume assist-control. In addition, the patient continues on Zerbaxa, Eraxis, and daptomycin, because of recent infections, including Pseudomonas, and Citrobacter, as well as Staphylococcus. Labs, x-rays, and medications are reviewed. The patient will continue on a small dose of propofol, Dilaudid as needed, and Ativan. Dexmedetomidine which is currently running was to be discontinued. Additional recommendations and suggestions are forthcoming. Prognosis is poor in my opinion. The patient remains a full code. The remains hopeful. Dictation was produced using [employer] software. Please excuse any grammatical, word or spelling errors. Plan dated December 31, 2023. The patient is seen today in room 253. Family members are at the bedside. After observing the patient on the ventilator, for period of time, it was clear to me, the patient was not synchronous with the ventilator. For that reason, we switched from volume assist-control, to pressure regulated volume control or VC plus. The patient had a inspiratory time of 0.8 seconds, and a targeted tidal volume of 450 cc. Everything else stayed the same. After switching, the patient's respiratory rate came down, as did his minute volume. He appeared much more comfortable. Labs, x-rays, medications are reviewed. The patient continues on Zerbaxa, Eraxis, and daptomycin. We will continue to follow. Prognosis is guarded. No additional recommendations are made. The patient is on propofol at 40 mcg/kg/min. I have asked the nurses to use both Ativan every 6 hours, and Dilaudid every 2 hours as needed, to see if we can get him on a small dose of propofol so that we can send the patient to long-term acute care facility. Prognosis is guarded. Dictation was produced using [employer] dictation software. Please excuse any grammatical, word or spelling errors. Time with Patient: Greater than 30
--- NOTE | 2023-12-31 11:15 | P.PN ---
Subjective Progress Note Date: 12/30/23 12/30/2023: Patient was seen for follow-up. Patient's daughter was present. Patient currently on propofol 35 mcg/kg/min. Patient continues to have sepsis, pneumonia being treated. Patient currently on Eraxis, Zerbaxa, daptomycin. Per patient's daughter, patient's motor improvement has regressed since back on propofol. Previously was doing better on Precedex. 12/22/2023: Patient was seen for a follow-up. Patient's was also present today. She states that she is doing better, but right now he has received Dilaudid, therefore somnolent. 12/20/2023: Patient was seen for follow-up. Patient's daughter and patient's are both present. Patient apparently has started responding remarkably. Patient is moving his lower extremities proximally and distally quite well, improved within the last 24 hours. Also able to move his arms well. Still no slider assembler, but approximately moving better. 12/19/2023: Patient was seen for a follow-up. Patient's and patient's daughter were present today. Patient is clinically unchanged. Continues to be very weak in the arms and legs. 12/18/2023: Patient was seen for a follow-up. Patient is much more alert and awake. He is off sedation. Please refer to examination below. 12/17/2023: Patient was seen for a follow-up. Patient's was also present, who believes that patient is doing better. Patient is nodding appropriately. He is still very weak in the arms and legs, not able to follow directions otherwise. Patient nods "no" for headache. Patient has tracheostomy. 12/16/2023: Patient was seen for a follow-up. Patient is laying in the bed, severely encephalopathic. Patient now has tracheostomy. Patient currently on Precedex 0.2 mcg/kg/h. Also on vancomycin. Patient getting hemodialysis as of now. 12/08/2023: Patient was seen for a follow-up. Patient's was also present. Per nursing report, with sedation holiday, patient opens eyes, but does not follow commands, does not track. Does not even response to yes/no questions. Patient does move right arm sometimes. Patient starts desynchronized ventilation therefore has to be put back on Precedex. Patient currently on Precedex 0.6 g per program per hour. Objective - Vital Signs Vital signs: Vital Signs Temp 98.3 F 12/30/23 12:00 Pulse 90 12/30/23 21:27 Resp 25 H 12/30/23 19:00 BP 90/57 12/30/23 19:00 Pulse Ox 97 12/30/23 19:00 FiO2 30 12/30/23 19:55 Intake & Output 12/30/23 12/30/23 12/31/23 06:59 18:59 06:59 Intake Total 9713.781 6064.600 75 Output Total 1720 1130 50 Balance -247.492 318.600 25 Weight 101.6 kg 101.6 kg Intake: IV 600 320 10 0.45 600 250 0.9 70 10 Intake, IV Titration 92.508 273.600 Amount Dexmedetomidine/0.9% NaCl 92.508 173.600 (Pmx) 400 mcg In Empty Bag 1 bag @ 0.2 MCG/KG/HR 4.94 mls/hr IV .[id number] [facility] Rx#:[id number] propofoL 1,000 mg In 100.000 Empty Bag 1 bag @ 15 MCG/ KG/MIN 9.144 mls/hr IV . [id number] [facility] Rx#:[id number] TPN/PPN 780 855 65 TPN 780 855 65 Output: Drainage 70 Right Abdomen 70 Urine 1650 1130 50 Other: Voiding Method Indwelling Catheter Indwelling Catheter ABP, PAP, CO, CI - Last Documented Arterial Blood Pressure 124/53 - Exam On examination patient is laying in the bed. Patient is intubated, with tracheostomy. Patient on propofol 35 mcg/kg/min. No seizure-like activity. Patient is somnolent at this time. Detailed examination deferred. Pupils are equal, round and reacting. - Labs CBC & Chem 7: 12/31/23 04:45 12/31/23 04:45 Labs: Abnormal Lab Results - Last 24 Hours (Table) 12/30/23 12/30/23 12/30/23 Range/Units 05:25 05:25 05:25 WBC 11.5 H (3.8-10.6) k/uL RBC 2.74 L (4.30-5.90) m/uL Hgb 8.1 L (13.0-17.5) gm/dL Hct 25.0 L (39.0-53.0) % RDW 18.4 H (11.5-15.5) % Plt Count 78 L (150-450) k/uL Neutrophils # 8.5 H (1.3-7.7) k/uL ABG pCO2 31 L (35-45) mmHg ABG HCO3 20 L (21-25) mmol/L ABG O2 Saturation 97.6 H (94-97) % Hemoglobin 7.9 L (13.0-17.5) gm/dL Chloride 119 H (98-107) mmol/L Carbon Dioxide 20 L (22-30) mmol/L BUN 42 H (9-20) mg/dL Glucose 178 H (74-99) mg/dL POC Glucose (mg/dL) (70-110) mg/dL Calcium 6.9 L (8.4-10.2) mg/dL Phosphorus 2.3 L (2.5-4.5) mg/dL Total Bilirubin 2.0 H (0.2-1.3) mg/dL Total Protein 5.3 L (6.3-8.2) g/dL Albumin 1.9 L (3.5-5.0) g/dL 12/30/23 12/30/23 Range/Units 12:24 17:52 WBC (3.8-10.6) k/uL RBC (4.30-5.90) m/uL Hgb (13.0-17.5) gm/dL Hct (39.0-53.0) % RDW (11.5-15.5) % Plt Count (150-450) k/uL Neutrophils # (1.3-7.7) k/uL ABG pCO2 (35-45) mmHg ABG HCO3 (21-25) mmol/L ABG O2 Saturation (94-97) % Hemoglobin (13.0-17.5) gm/dL Chloride (98-107) mmol/L Carbon Dioxide (22-30) mmol/L BUN (9-20) mg/dL Glucose (74-99) mg/dL POC Glucose (mg/dL) 222 H 226 H (70-110) mg/dL Calcium (8.4-10.2) mg/dL Phosphorus (2.5-4.5) mg/dL Total Bilirubin (0.2-1.3) mg/dL Total Protein (6.3-8.2) g/dL Albumin (3.5-5.0) g/dL Microbiology - Last 24 Hours (Table) 12/28/23 12:22 Catheter Tip Culture - Final Catheter Tip Assessment and Plan Assessment: * Altered mental status, likely due to toxic metabolic encephalopathy, remarkably improved. Now again got worse, likely due to persistent metabolic encephalopathy and due to sedation with propofol. 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 * Sepsis * Pneumonia * Ventilator dependent respiratory failure, status post tracheostomy 12/10/2023 * Status post pulmonary edema * History of small bowel perforation at the site of jejunostomy tube tip with balloon * Peritonitis, secondary to above * Acute kidney injury, with hemodialysis started 12/05/2023 * Acute recurrent atrial fibrillation, currently in sinus mechanism * Septic shock, recovered * Bacteremia with coagulase-negative staph * Hypertension * Anemia * Thrombocytopenia, resolved * History of gastric B-cell lymphoma, with gastric outlet obstruction. Plan: * Patient continues to have significant metabolic encephalopathy from ongoing sepsis, pneumonia, head previous bacteremia. ID on board. On multiple antibiotics. * Initial EEG on 12/08/2023: It revealed generalized slowing of severe degree. This is suggestive of generalized cerebral dysfunction as can be seen with toxic metabolic encephalopathy or related to diffuse structural brain about a day. Clinical correlation is recommended. Sporadic, periodic generalized sharp-appearing waves were seen. This may suggest underlying cortical irr itability. No electrographic seizure was recorded. * Repeat EEG 12/12/2023 revealed limited study because of diffuse myogenic artifact. Background slowing is suggestive of severe encephalopathy. No epileptiform activity was seen. * Patient's Keppra was decreased to 250 mg twice daily on 12/25/2023 (from 500 mg twice daily). Would recommend tapering off Keppra, once mentation and sepsis improves. * Repeat EEG on 12/12/2023: Is abnormal. The study is limited because of diffuse myogenic artifact. The background slowing is suggestive of severe encephalopathy. Otherwise no focal slowing, epileptiform discharges or seizure on the EEG. * CT head performed 12/07/2023 revealed no acute intracranial process. Some atrophy. I personally reviewed CT head agree with the findings. * Patient is generalized weak. Patient has been ICU for extended period of time. At risk for critical illness myopathy. * For medical management as per critical care, ID and other specialties on board.
[2023-12-31 11:57] LABS: Glucose,Whole Blood 184 mg/dL (70-110)
--- NOTE | 2023-12-31 12:02 | P.PN ---
Subjective Progress Note Date: 12/31/23 Principal diagnosis: DLBCL Pt is partially sedated, trach and ventilated. New diagnosis of Gastric DLBCL. Complicated hospitalization due to multiple other factors. He is on TPN at this time, dialysis has been stopped as pt is producing urine and renal functions is improved. CBC is overall stable Objective - Vital Signs Vital signs: Vital Signs Temp 98.1 F 12/31/23 04:00 Pulse 80 12/31/23 11:46 Resp 24 12/31/23 07:00 BP 103/71 12/31/23 02:00 Pulse Ox 97 12/31/23 07:00 FiO2 30 12/31/23 11:40 Intake & Output 12/30/23 12/31/23 12/31/23 18:59 06:59 18:59 Intake Total 9587.983 1587 100 Output Total 1130 1150 90 Balance 318.600 50 10 Weight 101.6 kg 101.1 kg Intake: IV 320 120 10 0.45 250 0.9 70 120 10 Intake, IV Titration 273.600 200 Amount Dexmedetomidine/0.9% NaCl 173.600 (Pmx) 400 mcg In Empty Bag 1 bag @ 0.2 MCG/KG/HR 4.94 mls/hr IV .[id number] [facility] Rx#:[id number] propofoL 1,000 mg In 100.000 200 Empty Bag 1 bag @ 15 MCG/ KG/MIN 9.144 mls/hr IV . [id number] [facility] Rx#:[id number] TPN/PPN 855 880 90 TPN 855 880 90 Output: Gastric Drainage 200 Drainage 40 Right Abdomen 40 Urine 1130 910 90 Other: Voiding Method Indwelling Catheter Indwelling Catheter ABP, PAP, CO, CI - Last Documented Arterial Blood Pressure 141/61 - Constitutional General appearance: Present: average body habitus, no acute distress - EENT Eyes: Present: anicteric sclerae - Respiratory Details: vent - Cardiovascular Rhythm: regular - Peripheral edema leg Peripheral Edema: bilateral: None - Musculoskeletal Musculoskeletal: Present: generalized weakness - Psychiatric Psychiatric Comment(s): pt opened eyes to voice Psychiatric: Absent: A&O x's 3, appropriate affect, intact judgment & insight - Labs CBC & Chem 7: 12/31/23 04:45 12/31/23 04:45 Labs: Abnormal Lab Results - Last 24 Hours (Table) 12/30/23 12/30/23 12/30/23 Range/Units 12:24 17:52 23:50 WBC (3.8-10.6) k/uL RBC (4.30-5.90) m/uL Hgb (13.0-17.5) gm/dL Hct (39.0-53.0) % RDW (11.5-15.5) % Plt Count (150-450) k/uL Neutrophils # (1.3-7.7) k/uL ABG O2 Saturation (94-97) % Hemoglobin (13.0-17.5) gm/dL Chloride (98-107) mmol/L Carbon Dioxide (22-30) mmol/L BUN (9-20) mg/dL Glucose (74-99) mg/dL POC Glucose (mg/dL) 222 H 226 H 226 H (70-110) mg/dL Calcium (8.4-10.2) mg/dL 12/31/23 12/31/23 12/31/23 Range/Units 04:45 04:45 04:50 WBC 12.8 H (3.8-10.6) k/uL RBC 2.43 L (4.30-5.90) m/uL Hgb 7.3 L (13.0-17.5) gm/dL Hct 22.4 L (39.0-53.0) % RDW 18.4 H (11.5-15.5) % Plt Count 67 L (150-450) k/uL Neutrophils # 9.3 H (1.3-7.7) k/uL ABG O2 Saturation 98.2 H (94-97) % Hemoglobin 7.0 L* (13.0-17.5) gm/dL Chloride 119 H (98-107) mmol/L Carbon Dioxide 20 L (22-30) mmol/L BUN 43 H (9-20) mg/dL Glucose 198 H (74-99) mg/dL POC Glucose (mg/dL) (70-110) mg/dL Calcium 6.8 L (8.4-10.2) mg/dL 12/31/23 Range/Units 05:58 WBC (3.8-10.6) k/uL RBC (4.30-5.90) m/uL Hgb (13.0-17.5) gm/dL Hct (39.0-53.0) % RDW (11.5-15.5) % Plt Count (150-450) k/uL Neutrophils # (1.3-7.7) k/uL ABG O2 Saturation (94-97) % Hemoglobin (13.0-17.5) gm/dL Chloride (98-107) mmol/L Carbon Dioxide (22-30) mmol/L BUN (9-20) mg/dL Glucose (74-99) mg/dL POC Glucose (mg/dL) 223 H (70-110) mg/dL Calcium (8.4-10.2) mg/dL Microbiology - Last 24 Hours (Table) 12/28/23 12:22 Catheter Tip Culture - Final Catheter Tip Assessment and Plan (1) Large B-cell lymphoma Current Visit: Yes Status: Acute Priority: High Code(s): C85.10 - UNSPECIFIED B-CELL LYMPHOMA, UNSPECIFIED SITE SNOMED Code(s): 420195147 (2) Iron deficiency anemia Current Visit: Yes Status: Acute Priority: High Code(s): D50.9 - IRON DEFICIENCY ANEMIA, UNSPECIFIED SNOMED Code(s): 42989070 Plan: DLBCL of GI tract -new diagnosis -MYC +, BCL2 & 6 neg-not dbl or triple hit. -Family is aware that treatment for lymphoma would not begin until patient is healed adequately from surgery and been rehabilitated to at least a performance status of 1. [place] -Suspect 2/2 to chronic GI losses, malabsorption. -s/p 4 IV iron infusions back on admit. Will recheck, pt may be a candidate for additional supplementation -Hgb currently stable Surgery, Critical Care team, IM, Nephrology, ID, Neurology, Wound care all following pt. Guarded prognosis due to complicated hospital course. Doctor attests: I performed a history and physical examination of this patient, developed impression and plan of care. Discussed with dictator. I agree with dictators note, documented as a scribe.
[2023-12-31] MEDS: [UNRECOGNIZED DRUG - REMARK] IV SCH (14:23)
--- NOTE | 2023-12-31 14:23 | P.PN ---
Subjective Progress Note Date: 12/31/23 CHIEF COMPLAINT: Abdominal pain HISTORY OF PRESENT ILLNESS: Patient remains in the ICU on mechanical vent ilation. Has tracheostomy. Patient continues to have leaking from the J-tube. J-tube is currently to drainage and has bilious output. Tube feeds are on hold. He has TPN for nutrition support. Critical care service did adjust vent settings. Patient is on propofol. Afebrile. WBC up from 11.5-12.8 Hgb 7.3 platelets 67. PHYSICAL EXAM: VITAL SIGNS: Reviewed. GENERAL: no acute distress. HEENT: Tracheostomy site clean dry and intact ABDOMEN: Soft. Nondistended. Midline incision with wound VAC in place and intact. J-tube with bilious drainage noted. Skin is irritated and erythematous from drainage. Sutures are intact. ASSESSMENT: 1. 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 Status post J-tube placement and revision for small bowel obstruction 2. Abdominal wound dehiscence status post wound VAC placement 3. Status post tracheostomy PLAN: -At this time no plan to exchange J-tube -Keep J-tube to drainage -Continue to hold tube feeds -Continue wound VAC -Continue TPN for nutrition support -Continue Triad barrier cream around J-tube Physician [employer] Observer Helper note has been reviewed by physician. Signing provider agrees with the documented findings, assessment, and plan of care. Objective - Vital Signs Vital signs: Vital Signs Temp 98.5 F 12/31/23 12:00 Pulse 84 12/31/23 13:00 Resp 32 H 12/31/23 13:00 BP 103/71 12/31/23 02:00 Pulse Ox 97 12/31/23 13:00 FiO2 30 12/31/23 13:00 Intake & Output 12/30/23 12/31/23 12/31/23 18:59 06:59 18:59 Intake Total 2844.148 5083 1215 Output Total 1130 1150 1135 Balance 318.600 50 80 Weight 101.6 kg 101.1 kg Intake: IV 312 092 6016 0.45 250 0.9 70 120 75 Anidulafungin 100 mg In 100 Sodium Chloride 0.9% 100 ml @ 84 mls/hr IVPB DAILY [facility] Rx#:[id number] DAPTOmycin 600 mg In 50 Sodium Chloride 0.9% 50 ml @ 100 mls/hr IVPB Q24H [facility] Rx#:[id number] Fat Emulsion 20% 250 ml 250 In Empty Bag 1 bag @ 21 mls/hr IV DAILY@1000 [facility] Rx#:[id number] Potassium Chloride 10 meq 100 In Water For Injection 1 100ml.bag @ 100 mls/hr IVPB Q1H [facility] Rx#: [id number] TPN 450 Intake, IV Titration 273.600 200 100 Amount Dexmedetomidine/0.9% NaCl 173.600 (Pmx) 400 mcg In Empty Bag 1 bag @ 0.2 MCG/KG/HR 4.94 mls/hr IV .[id number] [facility] Rx#:[id number] propofoL 1,000 mg In 100.000 200 100 Empty Bag 1 bag @ 15 MCG/ KG/MIN 9.144 mls/hr IV . [id number] [facility] Rx#:[id number] TPN/PPN 855 880 90 TPN 855 880 90 Output: Gastric Drainage 200 300 Drainage 40 120 Right Abdomen 40 120 Urine 1130 910 715 Other: Voiding Method Indwelling Catheter Indwelling Catheter # Bowel Movements 0 ABP, PAP, CO, CI - Last Documented Arterial Blood Pressure 138/61 - Labs CBC & Chem 7: 12/31/23 04:45 12/31/23 04:45 Labs: Abnormal Lab Results - Last 24 Hours (Table) 12/30/23 12/30/23 12/31/23 Range/Units 17:52 23:50 04:45 WBC 12.8 H (3.8-10.6) k/uL RBC 2.43 L (4.30-5.90) m/uL Hgb 7.3 L (13.0-17.5) gm/dL Hct 22.4 L (39.0-53.0) % RDW 18.4 H (11.5-15.5) % Plt Count 67 L (150-450) k/uL Neutrophils # 9.3 H (1.3-7.7) k/uL ABG O2 Saturation (94-97) % Hemoglobin (13.0-17.5) gm/dL Chloride (98-107) mmol/L Carbon Dioxide (22-30) mmol/L BUN (9-20) mg/dL Glucose (74-99) mg/dL POC Glucose (mg/dL) 226 H 226 H (70-110) mg/dL Calcium (8.4-10.2) mg/dL 12/31/23 12/31/23 12/31/23 Range/Units 04:45 04:50 05:58 WBC (3.8-10.6) k/uL RBC (4.30-5.90) m/uL Hgb (13.0-17.5) gm/dL Hct (39.0-53.0) % RDW (11.5-15.5) % Plt Count (150-450) k/uL Neutrophils # (1.3-7.7) k/uL ABG O2 Saturation 98.2 H (94-97) % Hemoglobin 7.0 L* (13.0-17.5) gm/dL Chloride 119 H (98-107) mmol/L Carbon Dioxide 20 L (22-30) mmol/L BUN 43 H (9-20) mg/dL Glucose 198 H (74-99) mg/dL POC Glucose (mg/dL) 223 H (70-110) mg/dL Calcium 6.8 L (8.4-10.2) mg/dL 12/31/23 Range/Units 11:55 WBC (3.8-10.6) k/uL RBC (4.30-5.90) m/uL Hgb (13.0-17.5) gm/dL Hct (39.0-53.0) % RDW (11.5-15.5) % Plt Count (150-450) k/uL Neutrophils # (1.3-7.7) k/uL ABG O2 Saturation (94-97) % Hemoglobin (13.0-17.5) gm/dL Chloride (98-107) mmol/L Carbon Dioxide (22-30) mmol/L BUN (9-20) mg/dL Glucose (74-99) mg/dL POC Glucose (mg/dL) 184 H (70-110) mg/dL Calcium (8.4-10.2) mg/dL Microbiology - Last 24 Hours (Table) 12/28/23 12:22 Catheter Tip Culture - Final Catheter Tip
--- NOTE | 2023-12-31 14:43 | P.PN ---
Subjective Progress Note Date: 12/31/23 Principal diagnosis: Reason for follow-up is pneumonia and bacteremia Patient is 73-year-old with male initial presentation to the hospital on 11/11/2021 for after the patient did have aspiration while undergoing elective endoscopy, diagnosed with a non-Hodgkin of, subsequently did have explained laparotomy for perforated small bowel abdominal washout and feeding jejunostomy tube patient did require dialysis catheter placement for dialysis during this hospital stay and tracheostomy for respiratory failure, infectious was consulted for fever. On today's evaluation that is 12/31/2023, Patient is afebrile this morning patient is on the ventilator FiO2 is currently stable at 30% no significant purulent secretion through the ET patient is hemodynamic stable not requiring any pressor support still having drainage from his jejunostomy tube site. Patient white count is 12.8 creatinine is 1.15 Objective - Vital Signs Vital signs: Vital Signs Temp 98.1 F 12/31/23 04:00 Pulse 82 12/31/23 08:25 Resp 24 12/31/23 07:00 BP 103/71 12/31/23 02:00 Pulse Ox 97 12/31/23 07:00 FiO2 30 12/31/23 08:23 Intake & Output 12/30/23 12/31/23 12/31/23 18:59 06:59 18:59 Intake Total 9066.353 1014 100 Output Total 1130 1150 90 Balance 318.600 50 10 Weight 101.6 kg 101.1 kg Intake: IV 320 120 10 0.45 250 0.9 70 120 10 Intake, IV Titration 273.600 200 Amount Dexmedetomidine/0.9% NaCl 173.600 (Pmx) 400 mcg In Empty Bag 1 bag @ 0.2 MCG/KG/HR 4.94 mls/hr IV .[id number] [facility] Rx#:[id number] propofoL 1,000 mg In 100.000 200 Empty Bag 1 bag @ 15 MCG/ KG/MIN 9.144 mls/hr IV . [id number] [facility] Rx#:[id number] TPN/PPN 855 880 90 TPN 855 880 90 Output: Gastric Drainage 200 Drainage 40 Right Abdomen 40 Urine 1130 910 90 Other: Voiding Method Indwelling Catheter Indwelling Catheter ABP, PAP, CO, CI - Last Documented Arterial Blood Pressure 141/61 - Exam GENERAL DESCRIPTION: An elderly male lying in bed in no distress RESPIRATORY SYSTEM: Unlabored breathing , decreased breath sounds at bases HEART: S1 S2 regular rate and rhythm , ABDOMEN: Soft , no tenderness EXTREMITIES: No edema feet - Labs CBC & Chem 7: 12/31/23 04:45 12/31/23 04:45 Labs: Abnormal Lab Results - Last 24 Hours (Table) 12/30/23 12/30/23 12/30/23 Range/Units 12:24 17:52 23:50 WBC (3.8-10.6) k/uL RBC (4.30-5.90) m/uL Hgb (13.0-17.5) gm/dL Hct (39.0-53.0) % RDW (11.5-15.5) % Plt Count (150-450) k/uL Neutrophils # (1.3-7.7) k/uL ABG O2 Saturation (94-97) % Hemoglobin (13.0-17.5) gm/dL Chloride (98-107) mmol/L Carbon Dioxide (22-30) mmol/L BUN (9-20) mg/dL Glucose (74-99) mg/dL POC Glucose (mg/dL) 222 H 226 H 226 H (70-110) mg/dL Calcium (8.4-10.2) mg/dL 12/31/23 12/31/23 12/31/23 Range/Units 04:45 04:45 04:50 WBC 12.8 H (3.8-10.6) k/uL RBC 2.43 L (4.30-5.90) m/uL Hgb 7.3 L (13.0-17.5) gm/dL Hct 22.4 L (39.0-53.0) % RDW 18.4 H (11.5-15.5) % Plt Count 67 L (150-450) k/uL Neutrophils # 9.3 H (1.3-7.7) k/uL ABG O2 Saturation 98.2 H (94-97) % Hemoglobin 7.0 L* (13.0-17.5) gm/dL Chloride 119 H (98-107) mmol/L Carbon Dioxide 20 L (22-30) mmol/L BUN 43 H (9-20) mg/dL Glucose 198 H (74-99) mg/dL POC Glucose (mg/dL) (70-110) mg/dL Calcium 6.8 L (8.4-10.2) mg/dL 12/31/23 Range/Units 05:58 WBC (3.8-10.6) k/uL RBC (4.30-5.90) m/uL Hgb (13.0-17.5) gm/dL Hct (39.0-53.0) % RDW (11.5-15.5) % Plt Count (150-450) k/uL Neutrophils # (1.3-7.7) k/uL ABG O2 Saturation (94-97) % Hemoglobin (13.0-17.5) gm/dL Chloride (98-107) mmol/L Carbon Dioxide (22-30) mmol/L BUN (9-20) mg/dL Glucose (74-99) mg/dL POC Glucose (mg/dL) 223 H (70-110) mg/dL Calcium (8.4-10.2) mg/dL Microbiology - Last 24 Hours (Table) 12/28/23 12:22 Catheter Tip Culture - Final Catheter Tip Assessment and Plan (1) Sepsis Current Visit: Yes Status: Acute Code(s): A41.9 - SEPSIS, UNSPECIFIED ORGANISM SNOMED Code(s): 88354116 (2) Pneumonia Current Visit: Yes Status: Acute Code(s): J18.9 - PNEUMONIA, UNSPECIFIED ORGANISM SNOMED Code(s): 984617010 (3) Bacteremia Current Visit: Yes Status: Acute Code(s): R78.81 - BACTEREMIA SNOMED Code(s): 0339422 Plan: 1patient with pneumonia with a sputum showing Citrobacter and Pseudomonas aerug inosa, the patient sputum repeat is still growing Citrobacter and Pseudomonas sensitive to the Pseudomonas that is a drug-resistant and resistant to Zosyn, patient is currently on Zerbaxa and will monitor clinical course closely 2-patient did have a positive blood culture with staph epi that was oxacillin resistant as the patient did have a PICC line and the dialysis catheter he is on daptomycin repeat blood culture currently growing oxacillin sensitive staph epi, the patient dialysis catheter has been discontinued, catheter cultures so far negative 3-patient also have significant excoriation around his jejunostomy tube site which is still leaking local care with Triad cream along with Eraxis 4the patient did have a low-grade fever yesterday that seem to have resolved white count mildly elevated for now we will monitor closely and continue with the current broad-spectrum antibiotics at the bedside question answered Dictation was produced using [employer] dictation software. please excuse any grammatical, word or spelling errors.
[2023-12-31 18:03] LABS: Glucose,Whole Blood 201 mg/dL (70-110)
--- NOTE | 2023-12-31 18:21 | P.PN ---
Progress Note - Text Progress Note Date: 12/31/23 Chief Complaint: Aspirated This is a 73-year-old patient, follows with Dr. Patricia Deal. Patient was seen this morning in the ICU. Patient's and daughter at the bedside. History obtained predominantly by the . Patient been having trouble with his stomach symptoms for close to 8 months. Patient underwent EGD by Dr. Sahara Cheng yesterday. Patient was found to have ulcerated around the antrum and obstruction to the pylorus. A lot of retained food was found. Patient aspirated. Had to be intubated and brought to the ICU. On a Levophed drip. FiO2 50 and a PEEP of 6. Patient had been losing weight lost about 25 pounds. Previously has a history of mitral valve prolapse. November 13: ICU. Patient remains on Precedex drip and propofol drip. Did not do well attempted extubation yesterday. Patient been off Levophed. NG tube to suction. Spoke to patient's and son at the bedside. Biopsy results awaited. Hemoglobin dropped to 6.9 this morning. Get a unit of blood. November 14: ICU. Up in a chair. Extubated yesterday. NG tube to suction. at the bedside. 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 Oncology was consulted. They have ordered a port. Results discussed with Dr. Sahara Cheng. General surgery was consulted for J-tube placement. Discussed with at the bedside. Patient getting IV fluids, IV Zosyn,. Patient has been on IV amiodarone for A-fib-back in sinus rhythm. Multiple PACs. Did receive unit of blood yesterday. Also IV ferric gluconate. November 15: ICU. Patient earlier today underwent jejunostomy tube placement and a port placement. Patient awake. Answering questions. NG tube to suction present. Updated patient's . Patient remains on IV amiodarone and IV Zosyn. November 16: ICU. Up in the chair. NG tube present but not to suction. Trickle feeding through the jejunostomy tube should be started today. Dietitian has been on board. IV Zosyn to continue. Patient's and his sister at the bedside. Discussed. Also spoke with Dr. Serna. Given patient has no other predisposing cardiac factors for the A-fib except acute illness. His LV function is normal. Left atrium is normal. He has already been loaded with IV amiodarone. Will switch him to oral Lopressor 12.5 twice daily. Hence will DC amiodarone. Patient yesterday had wheezing was put on bronchodilators steroids per pulmonary. November 17: Propped up in bed. NG tube was discontinued. Sinus rhythm. Remains NPO. Getting G-tube feeding at 40 cc an hour. Dietitian following. Get arrangements done for DC home tomorrow including tube feeding. Increase activity discussed with patient and elder daughter at the bedside. Still requiring oxygen. Incentive spirometry. November 18: Patient up in recliner. Earlier today spoke to psychiatric social worker supervisor David. Informed patient is rather weak and will be going to the [facility]. Looking at authorization. Denae came to the room and spoke to patient his and his daughter. They are very keen to take the patient home as 3 daughters all nurses and they will take care of him at home. Patient earlier today to abdominal cramping and some loose stools.'s tube feeding was held. Told the nurse to start back at the rate of 40 cc an hour. He was before the getting it at 55 cc an hour. Incentive spirometry was again emphasized. Patient remains on 4 L of oxygen. November 19: I saw the patient this morning. Hence I am in the evening. Morning was sitting with his sons. Has some edema. Lungs had crackles I gave him 40 mg of Lasix. He did make good urine. Tube feeding was held from the previous evening of because of abdominal cramping. Acute abdominal series showed nonspecific bowel gas pattern and SBO to be ruled out. Family and patient was updated. Told him discharge will depend on day by day. Later this afternoon CT scanAnd abdomen pelvis done. Showed small bowel to be 3 point centimeter dilated. Some anasarca. Gastric findings. Gallstones. Later spoke to Dr. Irby from general surgery. They will further review and decide about further plan of action. Will give further dose of IV Lasix because of fluid overload from likely hypoalbuminemia and IV fluids previously received. Patient may take his pills by mouth. Total time spent today about 1 hour with over 40 minutes of discussion. Patient did state his breathing is better after Lasix this morning. November 20: Saw the patient this morning. was present. Patient received 2 more doses of Lasix. Diuresed well. Breathing much better. Lungs are sounding better. Discussed with Dr. Zepeda other surgeon. He is taking 3 cc out of the balloon and the gastrostomy tube. Started trickle feeding at 5 cc an hour. Will see how this does. Later in the day ran into the and the daughter again. Did update them on the same. Dilaudid was discontinued yesterday but morphine was ordered by surgery for patient having pain. Concerns about GI issues with that we will DC the morphine. As family does not want the same. November 21: Patient reclining bed. Tired. Several family members at the bedside. Including his and eldest daughter. Patient started on trickle feed yesterday at 5 cc an hour. This morning he has been on 10 cc an hour. Still having some loose stools. C. difficile was ordered. Patient on 2 L of nasal cannula. Has diuresed well. Will give an additional dose of Lasix today. If C. difficile is negative and the diarrhea is from the tube feedings we may have to use a fecal management system to keep him comfortable. Otherwise patient remains NPO. Dietitian is following the patient. Care was discussed length with patient the and daughter at the bedside. Questions answered. Liquid Tylenol has been added for abdominal pain. Avoid narcotics. Elevated white count likely from Solu-Medrol 11/23/2023--patient was feeling better today. Multiple family member at bedside. No issues overnight. Normal saline at 10 cc an hour, tube feeding at 20 cc an hour, remains on Zosyn, on 3 L oxygen. Afebrile. Heart rate 62, respiratory rate 16, blood pressure 114/67, saturating 91% on 3 L. WBCs 14.5, 9.7 hemoglobin. Platelet 242. BMP is unremarkable. Pulmonary and general surgery following. General surgery recommended to continue tube feeds at 20 cc/h. 11/24/2023--patient reported significant abdominal discomfort, also noted to have leak around G-tube. General surgery is following, evaluated the patient at bedside, adjusted tube feeds. Also reported having diarrhea, on 2 L oxygen, went up to 5 L. Blood pressure was low, 500 mL fluid bolus with close monitoring of respiratory status ordered. Currently on DuoNebs, Solu-Medrol, will continue Zosyn. Chest x-ray showed a left lower lobe infiltrate. Abdominal x-ray showed multiple air-fluid levels. CT abdomen showed multiple dilated small bowel loops, consistent with obstruction, pneumoperitoneum, cholelithiasis and ascites. WBCs 14.1, platelet 255, hemoglobin 8.9. NG tube in place. Family at bedside. patient transferred to SICU for close monitoring. 11/25/23--patient is currently in the ICU, required Levophed overnight due to low blood pressure, low urine output with creatinine trending up. Nephrology following. Superintendent Drilling also following. Patient remains n.p.o., NG tube in place, following NG tube insertion patient had total of 2 L output, J-tube was draining approximately 200 cc over last 8 hours, continues to have abdominal pain and abdominal tenderness. Patient on IV fluids. Currently on 4 L oxygen. WBCs 8.2, hemoglobin 12.3, platelet 188. Chest x-ray earlier today showed right sided port and a stable left lung airspace disease, NG tube in place. Patient currently on Zosyn, on IV Dilaudid for pain control, on IV Solu-Medrol. General surgery planning for OR today, started on TPN. 11/26/23--patient was seen and examined today. Patient is currently sedated, intubated on mechanical ventilation. Family at bedside. Patient underwent ex lap, abdominal washout, small bowel resection with new feeding jejunostomy tube placement yesterday, small bowel was noted to be perforated with significant contamination of abdominal cavity. Patient is currently on vancomycin and Zosyn. Creatinine went up to 2.85, nephrology following, recommended to continue IV fluids, avoid nephrotoxin Preserved EF on echocardiogram.. Patient currently on Levophed, vasopressin in the ICU for close monitoring. Patient is afebrile, heart rate 122, blood pressure 129/76, currently on mechanical ventilation, sedated. November 26: ICU. Intubated. FiO2 60 and a PEEP of 5. Drips include IV amiodarone. Heart rate was up early did get fired microgram of IV digoxin and 2.5 mg of IV Lopressor. Did drop her blood pressure bit. Urine output was low. Received 80 mg of IV Lasix. Ahmet to 150 cc. Other drips include IV propofol, vasopressin, Levophed. TPN was started yesterday. Antibiotics include IV Zosyn and vancomycin. Patient has a J-tube to drainage to gravity. Spoke to patient's younger daughter and at the bedside. Prognosis guarded. Continue current treatment plan. Chest x-ray shows right lower lobe consolidation. Small pleural effusion. November 27: ICU. Intubated. FiO2 55 and a PEEP of 5. Antibiotics include IV vancomycin. Drips include Levophed at a small dose, IV vasopressin, propofol, amiodarone. Patient converted to sinus rhythm this morning. Getting TPN and normal saline at 75 cc an hour. Urine output about 25 cc an hour. RAYA drain put out about 260 cc last 12 hours that is last manufacturing supervisor 2nd shift. NG tube with bilious output. And also GI J-tube output to gravity. Spoke to patient's and daughter at the bedside. They understand patient still not out of the kee. Platelets have dropped-therefore probably Zosyn stopped. November 28: ICU. Intubated. FiO2 55 and a PEEP of 5. Patient is in sinus rhythm. Seen this morning. Due for dialysis catheter this afternoon. Urine output about 15 to 20 cc an hour. Patient is on IV Lasix 80 mg every 12. Saline is KVO. Drips include IV propofol vasopressin. Patient having significant output through the RAYA drain and the jejunostomy tube to drainage. Creatinine had been getting worse. Patient's at the bedside. Understands patient's remains critically ill. Hemoglobin is down to 7. Given that patient's pain hypotensive, and on vasopressin we will give a unit of blood with dialysis. Getting TPN antibiotic changed to IV meropenem November 29: ICU. Intubated. FiO2 55 and a PEEP of 5. Remains in sinus rhythm. Getting TPN. Dialyzed yesterday and this morning. About 1000 cc removed. Urine output about 50 cc an hour. Patient is on IV propofol. Off vasopressin. Still having significant output through the RAYA drain and jejunostomy tube. Patient received a second unit of blood yesterday. Patient's and daughter at the bedside. I did discuss guarded prognosis. Did asked them to revisit CODE STATUS.. Getting IV meropenem. November 30: ICU. Intubated. Did get a sedation holiday t today. Back on propofol. Getting TPN. Still getting IV Lasix. Fair urine output. Jejunostomy tube in last 8 hours was about 30 cc output. RAYA drain in the 8 hours had about 180 cc output. Telemetry shows sinus rhythm. NG tube has low intermittent suction with negative output. On the vent with FiO2 40 and a PEEP of 5. No hemodialysis today. Discussed with the and eldest daughter at the bedside. IV meropenem-patient's sputum had grown Citrobacter freundii and Pseudomonas aeruginosa. December 01: ICU. Intubated. Jejunostomy tube to gravity. Only 10 cc output in last 24 hours. RAYA drain. About 190 cc last 6 hours. Nasogastric tube to low intermittent suction. Minimal output. Patient is on a small dose of propofol 5 mics. Telemetry shows sinus rhythm. Patient started on small dose of Cleviprex this morning. Blood pressure. Getting TPN. FiO2 35 and PEEP of 5. Discussed with the at the bedside. Hemodialysis today December 02: ICU. Patient remains intubated. FiO2 35 PEEP of 5. Patient is on IV propofol. IV Cleviprex was discontinued yesterday. Also remains on TPN. Telemetry shows sinus rhythm. NG tube is good no output. Still significant output through the RAYA drain. Jejunostomy tube has minimal output. Patient had hemodialysis today 2 L of fluid was removed. Oral half liters yesterday. Patient getting a sedation holiday. General Surgery started the patient on trickle feeding at 10 cc an hour. I did speak to patient's at the bedside. Prognosis remains guarded but there is some improvement. December 03: ICU. Intubated. FiO2 35 PEEP of 5. Drips include IV propofol and Precedex. Getting TPN. Telemetry shows sinus rhythm. Remains on IV Lasix 80 mg twice a day. IV meropenem. Because patient gets easily agitated when transitioning off propofol he has been switched over to Precedex. For hemodialysis today. December 04: ICU. Intubated. FiO2 35 and a PEEP of 5. Patient been taken off propofol is on Precedex. Telemetry sinus rhythm. J-tube with minimal output. RAYA drain with decreased output. NG tube to suction minimal output. Family wanted to hold off trickle feeding until cleared by oncology. Which he did today. Trickle feeding will be started today. Spoke to patient's and one of the daughters at the bedside. Dr. Russ is spoken to the earlier this point they want to do further tracheostomy tube. December 05: ICU. Intubated. FiO2 35 PEEP of 5. Patient remains on Precedex and PPN. Patient's dialysis catheter was not functioning is getting another [address] Bobby this afternoon. Remains on IV meropenem. Has a RAYA drain in the jejunostomy tube to gravity. NG tube to low intermittent suction. No family at the bedside. December 06: ICU. Intubated. FiO2 35 PEEP of 5. RAYA drain putting out about approximately 120 cc per shift. Patient on IV Precedex. FiO2 35 PEEP of 5. Telemetry-sinus rhythm. Patient occasionally been put on small dose of Levophed specially for hemodialysis getting it today. Also started on midodrine for low blood pressure. Tolerating tube feeding at 10 cc an hour. Also had a bowel movement. Mentation has not improved. Even with sedation holiday. Neurology consulted. CT brain shows no acute process. December 07: ICU. Intubated. FiO2 35 PEEP of 5. Telemetry-sinus rhythm. NG tube to suction low intermittent minimal output. Getting TPN. Tube feeding at 20 cc an hour. RAYA drain averaging over 100 cc per shift. Remains on Precedex. EEG was done today. Discussed with at the bedside. Family is currently not inclined for tracheostomy tube today. Day 13 of being intubated December 08: ICU. Intubated. FiO2 35 PEEP of 5. Patient is put on back on propofol per rehabilitation coordinator Dr. BINGHAM. EEG did show some potential for spikes was put on Keppra by neurology. Telemetry shows sinus rhythm. NG tube to suction with no output. Tube feeding was put on hold because of questionable discharge on the site. Being restarted today. RAYA drain is 150 cc last 12-hour shift. Patient does open eyes. Family has decided to proceed with tracheostomy and surgery has been consulted for the same. Spoke to the at the bedside. For hemodialysis today. December 09: ICU. Intubated FiO2 35 PEEP of 5. Patient seen this morning. Pending tracheostomy placement this afternoon. Remains NPO. G-tube feeding was held overnight. RAYA drain putting out about 100 cc per shift. Received a unit of blood for hemoglobin of 6.6. On 25 mics of propofol. Getting TPN and meropenem. Spoke to the at the bedside. Patient became hypotensive with dialysis yesterday. Levophed had to be given. Only 800 cc were removed yesterday. No hemodialysis today. December 10: ICU . FiO2 35, PEEP 5. Tracheostomy was done yesterday by Dr. Ewing. G-tube feeding was started today at 10 cc an hour. Dietitian following. RAYA drain 12-hour shift overnight put out about 30 cc. Patient hemodialysis to day about 1 L removed. Patient has a sacral stage II decub with a dressing. On propofol 20 mics. Spoke to at the bedside. TPN. Meropenem was discontinued yesterday. December 11: ICU. FiO2 35 PEEP of 5. Tracheostomy. NG tube was discontinued. No hemodialysis today. Telemetry shows sinus rhythm. J-tube feeding at 40 cc an hour. TPN was discontinued. Patient has been off propofol also. PICC line in place. Patient had a EEG done today. Spoke to patient's elder daughter at the bedside. May open eyes occasionally. Not really following commands December 12: 73-year-old white male with history of chronic abdominal pain for the last 8 months has been treated with Protonix 40 mg daily for the last 3 months with no improvement. Patient had a 22 pound weight loss in the last [address] of the abdomen and pelvis 3 weeks ago showed thickening of the antral wall with pathological adenopathy posterior to the stomach suspicious of neoplasm. Today the patient underwent elective upper endoscopy to evaluate further, patient received IV sedation by anesthesia endoscope was inserted into the mouth, esophagus was intubated without any difficulty there was evidence of large amount of liquid and solid food noted in the stomach suggestive of gastric outlet obstruction. Scope could not be advanced through the pylorus, however in the prepyloric area there was a large superficial ulceration identified with multiple biopsies were done from this area. The body cardia and fundus could not adequately visualize because of large amount of retained food in the stomach. Scope was withdrawn back to the stomach and upon careful examination the mucosa of the antrum body and cardia as well as the fundus appeared normal. Procedure was being performed and biopsies were done patient threw up and subsequently became hypoxic there was clearly evidence of witnessed aspiration anesthesia intubated the patient, procedure was terminated, and the patient was transferred to the ICU, this consult was initiated. Patient is now on assist- control rate of 20 tidal volume 500 FiO2 70% PEEP of 10 ABG is pending, earlier ABG showed profound hypoxia patient is on propofol at 50 mcg/kg/min, next ABG is pending. Chest x-ray showed chronic changes without evidence of acute pulmonary disease. 12/14/2023 Patient remains in the ICU, generally weak Patient s/p tracheostomy G-tube in place Patient still has fever and mild tachycardia but tachycardia is improving, leukocytosis improving as well. Hemoglobin 8.1. Creatinine 3.0 and nephrology team on the case. He has mild transaminitis. He was getting Zosyn which is held now, nowCalcitonin is pending 12/14 Patient shon in the ICU, he is still encephalopathic and does not follow command. Neurology service following closely. He is status post tracheostomy. Also J-tube His abdomen looks soft and on exam he has mild coarse secretions. Has a Abarca catheter with clear urine His pro- Calcitonin is still high but trending down 3.0 down to 1.9 No fever this morning WBC slightly less at 16.3 Patient currently off antibiotic He is getting steroids IV Solu-Medrol which might contribute to his leukocytosis. Also he is on IV Keppra by neurologist 12/14 Patient remains confused in the ICU calm, he had a good night per family member and staff. Tracheostomy in place Patient has occasional coughing spells, patient also developed some partial wound dehiscence in his abdomen, surgery team are aware and are going to evaluate the patient Patient also has positive blood culture from 12/13: Gram-positive cocci in clusters. Patient received one-time dose of IV vancomycin. Patient also had fever 2 days ago, leukocytosis and total elevated pro- Calcitonin. Therefore we are going to consult infectious disease team. As his antibiotic Zosyn was stopped few days ago. Currently patient KVO He has good urine output December 16: ICU. Trach. Congested. Requiring suctioning. No hemodialysis today. Getting G-tube feeding at 50 cc an hour. FiO2 30 and a PEEP of 5. On IV Precedex. Eyes open. Does follow commands. Weakness in the limbs. Spoke to at the bedside. Sputum positive for Klebsiella oxytoca and Pseudomonas aeruginosa. December 17: ICU. On trach. Currently cough with increased secretions requiring suctioning. Adding scopolamine patch. Very much clear secretion. CT scan is showing right upper lobe lung abscess. G-tube feeding at 50 cc an hour. Hemodialysis today. RAYA drain putting out about 140 cc a shift. Serous. Has been midline incision wound dehiscence. Wound VAC was placed on it. Stage II ulcer. Patient is on Precedex drip 0.15 mics. Urine output is good about 6200 cc an hour. Spoke to the at the bedside. Patient currently not stable for transfer to LTAC. No limb movements. PT OT on the case. otherwise awake does follow simple commands by face December 18: ICU. Patient seen this afternoon. Because of pain getting IV Dilaudid. No nasal cannula on room air. Does move about his head. Telemetry shows sinus rhythm. FiO2 30 and a PEEP of 5. Patient started on scopolamine patch yesterday has decreased secretions today. Good urine output. Tube fee ding at 60 cc an hour. Wound VAC on incisional would be high since in place. RAYA drain continues to make output. No hemodialysis today December 19: ICU. Patient was seen earlier today. FiO2 30 and a PEEP of 5. Sinus rhythm. Awake. Does follow with eyes. Tube feeding got obstructed tube feedings held for now. Increasing oozing from the incision drainage site. at the bedside. Wound VAC remains in place. Good urine output. Dialysis held today. December 20: ICU. Per nephrology no dialysis today. 1 L fluid bolus given. J- tube was replaced over the wire by Dr. Ewing from surgery. On Precedex 0.6 mcg. FiO2 30 and a PEEP of 5 on the vent. RAYA drain putting out of around 100 cc per shift. at the bedside. Drainage through the abdominal incision wound. CT scan abdomen showed tube placement in the small bowel. Stable large right lower quadrant mass with a fluid level. December 21: ICU. No dialysis today. Patient started on trickle feeding through the J-tube yesterday. He started leaking around the J-tube site. Tube feeding was held. Dressings were placed. Wound VAC remains on the incision. Still having output through the RAYA drain. Patient remains on Precedex 0.4 mcg. FiO2 30 and a PEEP of 5. Sinus rhythm. at the bedside. December 22: ICU. Patient was seen this morning today by me. No dialysis today. Patient's and daughter at the bedside. FiO2 30 and a PEEP of 5. Sinus rhythm. Still having significant secretions through the tracheostomy tube. On Precedex 0.4 mcg. Getting D5W IV fluids. Tube feeding remains to be on hold since yesterday. Still output of RAYA drain. Awaiting input from surgery. Discussed with the and daughter. December 23: ICU. Saw the patient this afternoon. Because of good output of urine dialysis has been discontinued. Telemetry shows sinus rhythm. FiO2 30 and a PEEP of 5. RAYA output has been around 8200 cc an hour. Good urine output. Patient does have very slight movement of the limbs. Wound VAC is putting out about 20 cc per shift. Yesterday when trickle feeding was started patient's J- tube drainage also started leaking around the insertion site. Tube feeding was held. Patient remains on IV Zosyn and Precedex at 0.3 mcg. I had a very lengthy discussion with patient's daughter and at the bedside overall guarded prognosis. Later surgery spoke to the family, and then the nurse called me that family was wanting transferred to [facility]. I spoke to Dr. Irby. They felt they could not offer anything more at this point. I did call the [facility] transfer steam conditioning operator. Gave them the reason for transfer. Later in the ICU nurse informed me through [employer] that [facility] had declined the transfer. Total time spent today about 50 minutes with over 30 minutes of discussion. December 24: ICU. Patient is doing not too well. Sinus rhythm. Drips include norepinephrine and IV propofol. Surgery did put 2 stitches around the J-tube insertion site. Started on TPN today. FiO2 30 PEEP of 5. Patient became hypothermic put on a Manjit hugger. Also hypoglycemic. Decreased urine output. IV fluids increased. Patient's son was at the bedside. I did speak to patient's eldest daughter outside in the waiting room. Did tell the patient doing very poorly. I did try to call the on the phone number she has gone home. Started an IV antifungal today. December 26, 2023 73-year-old white male with history of chronic abdominal pain for the last 8 months has been treated with Protonix 40 mg daily for the last 3 months with no improvement. Patient had a 22 pound weight loss in the last [address] of the abdomen and pelvis 3 weeks ago showed thickening of the antral wall with pathological adenopathy posterior to the stomach suspicious of neoplasm. Today the patient underwent elective upper endoscopy to evaluate further, patient received IV sedation by anesthesia endoscope was inserted into the mouth, esophagus was intubated without any difficulty there was evidence of large amount of liquid and solid food noted in the stomach suggestive of gastric outlet obstruction. Scope could not be advanced through the pylorus, however in the prepyloric area there was a large superficial ulceration identified with multiple biopsies were done from this area. The body cardia and fundus could not adequately visualize because of large amount of retained food in the stomach. Scope was withdrawn back to the stomach and upon careful examination the mucosa of the antrum body and cardia as well as the fundus appeared normal. Procedure was being performed and biopsies were done patient threw up and subsequently became hypoxic there was clearly evidence of witnessed aspiration anesthesia intubated the patient, procedure was terminated, and the patient was transferred to the ICU, this consult was initiated. Patient is now on assist- control rate of 20 tidal volume 500 FiO2 70% PEEP of 10 ABG is pending, earlier ABG showed profound hypoxia patient is on propofol at 50 mcg/kg/min, next ABG is pending. Chest x-ray showed chronic changes without evidence of acute pulmonary disease. 12/27/2023 Patient is seen and evaluated with family at bedside; remains in the ICU intubated and mechanically ventilated. - ABG showed a pO2 of 99 pCO2 31 pH of 7.44. -- Remains on Eraxis daptomycin and Zosyn patient is intermittently requiring Dilaudid, Ativan does not seem to help his agitation and restlessness. -- Continues to have leakage around the jejunostomy tube, and patient is undergoing the J-tube exchange today. Family is at bedside, seems to be quite anxious about his overall condition, and I explained to the that we are doing the best we can considering his critical illness situation and critical illness polyneuropathy. Patient is profoundly weak, and weaning the patient from mechanical ventilation is almost impossible. At least not at this point yet WBC count is 10.9 hemoglobin is 8.1 basic metabolic profile is normal BUN is 46 creatinine 1.90 patient has been off hemodialysis since the . Chest x- ray continues to show stable findings with right upper lobe opacity and right lower lobe opacity and possibly a small right-sided pleural effusion ----Continue ventilatory support, now on IMV mode rate of 16 with pressure support of 14 Continue Precedex and use Dilaudid 0.5 mg every 2-3 hours as needed. Nutritional support patient is now on TPN, Possible J-tube changed today for J- tube malfunction Continue antibiotics including daptomycin and Zosyn, Eraxis was added by infecti ous disease 12/28/2023 the patient is seen and evaluated in room at bedside; continues to be afebrile, the patient is on the ventilator through the trach FiO2 is currently stable at 30% no significant pleural effusion clinically patient on requiring any pressor support still having drainage around his jejunostomy tube patient dialysis catheter has been discontinued. Patient white count normalized to 7.6, creatinine is 1.51 patient with pneumonia with a sputum showing Citrobacter and Pseudomonas aeruginosa, the patient sputum repeat is still growing Citrobacter and Ps eudomonas sensitive to the Pseudomonas is pending continue with Zosyn -patient did have a positive blood culture with staph epi that was oxacillin resistant as the patient did have a PICC line and the dialysis catheter he is on daptomycin repeat blood culture currently growing oxacillin sensitive staph epi, the patient dialysis catheter has been discontinued Has been sent for the culture -patient also have significant excoriation around his jejunostomy tube site which is still leaking Eraxis was added which will be continued as the patient fever pattern has improved and the patient white count has normalized once again discussed with the nursing staff to apply Triad cream which was discussed yesterday but not applied and monitor clinical course closely 12/29/2023 Patient is seen and evaluated with family members at bedside; remains intubated and mechanically ventilated -- ABG showed a pO2 of 105 pCO2 31 pH of 7.45. Remains on Precedex; multiple antibiotics and antifungal including Eraxis daptomycin and Zosyn. -- chest x-ray is showing improvement in his right upper lobe airspace disease/pulmonary abscess. Right lower lobe seems about the same with chronic opacity and possibly some small right-sided pleural effusion. --Family is at bedside, patient is arousable but does not follow any instructions. Gets extremely restless and agitated easily hence patient is receiving Dilaudid which seems to be working much better for this patient than benzodiazepines --possibly transfer the patient to a select care specialty. 12/30/2023 Evaluated in follow-up in the intensive care unit. He remains on the mechanical ventilator. Status post tracheostomy. There has been a decrease in the amount of leakage around the J-tube site he continues on a gravity flow. TPN is infusing tube feedings remain on hold at this time. No bowel movement reported for the last 5 days. X-ray today reveals extensive pleural parenchymal opacities throughout the right with at least a moderate pleural effusion. Mild patchy densities left mid and lower lung are also similar. Blood work reveals a white blood cell count 11.5, hemoglobin 8.1, platelet count of 78, sodium 142, potassium 4.2, BUN of 42, creatinine of 1.22, Phos of 2.3, magnesium 1.9. Patient continues on IV anidulafungin IV Zerbaxa IV daptomycin. Patient is currently sedated with propofol and also Precedex which is currently on hold at this time. December 31, 2023: ICU. Patient continues to do poorly. On propofol 35 mics. Also getting IV Dilaudid and IV Ativan.. Telemetry shows sinus rhythm. J-tube feeding has been discontinued. Significant output through the Abarca bag and around the G-tube site. Patient also putting out through the RAYA drain on the right side. Getting TPN and lipids. Patient is antimicrobial include iv aniedulefungin, IV ceftolozane/tazobactam, IV daptomycin Advance care planning [October 31, 2023] I met with patient's at the bedside. Went through in detail with patient is overall very poor clinical status. Chances of any meaningful recovery next to minimal. I also did mention that patient in my opinion was not stable to go to chronic ventilator setting. I suggested comfort care/hospice. I did not feel and why all honesty that patient is benefiting any further from the treatment we are giving him in fact causing probably more suffering. I also spoke to patient's daughter outside in the waiting room. Total time spent about 50 minutes with over 30 minutes of discussion. Later I called Dr. Luther BINGHAM the rehabilitation coordinator after he received a text that family was expressing that some physician expressed he was doing better and giving hope. I spoke to nurse Aminta in the evening and she and Dr. BINGHAM did go and talk to patient's family at the bedside later. Active Medications Acetaminophen (Acetaminophen Tab 325 Mg Tab) 650 mg PO Q4HR PRN PRN Reason: Fever and/ or Pain Last Admin: 12/09/23 20:09 Dose: 650 mg Acetaminophen (Acetaminophen Oral Susp (Peds) 3,840 Mg/120 Ml Bottle) 480 mg PO Q4HR PRN PRN Reason: Fever Albuterol/Ipratropium (Ipratropium-Albuterol 3 Ml Neb) 3 ml INHALATION RT-QID [facility] Last Admin: 12/31/23 15:12 Dose: 3 ml Albuterol/Ipratropium (Ipratropium-Albuterol 3 Ml Neb) 3 ml INHALATION RT-Q2H PRN PRN Reason: Shortness Of Breath Or Wheezing Last Admin: 12/03/23 03:45 Dose: 3 ml Chlorhexidine Gluconate (Chlorhexidine Gluconate 15 Ml Cup) 15 ml MUCOUS MEM BID NIRMAL Last Admin: 12/31/23 09:54 Dose: 15 ml Darbepoetin Scooby (Darbepoetin Scooby 40 Mcg/0.4 Ml Syringe) 40 mcg SQ Q7D [facility]AL Last Admin: 12/31/23 14:23 Dose: 40 mcg Dextrose/Water (Dextrose 50% Syringe 50 Ml) 25 ml IVP PER PROTOCOL PRN; Protocol PRN Reason: Hypoglycemia Last Admin: 12/24/23 01:01 Dose: 25 ml Dextrose/Water (Dextrose 50% Syringe 50 Ml) 50 ml IVP PER PROTOCOL PRN; Protocol PRN Reason: Hypoglycemia Last Admin: 12/25/23 18:03 Dose: 50 ml Hydromorphone HCl (Hydromorphone 2 Mg/Ml 1 Ml Syringe) 1 mg IVP Q2H PRN PRN Reason: Pain Last Admin: 12/31/23 17:57 Dose: 1 mg Anidulafungin 100 mg/ Sodium (Chloride) 130 mls @ 84 mls/hr IVPB DAILY [facility]; Protocol Last Admin: 12/31/23 09:55 Dose: 84 mls/hr Dexmedetomidine HCl 400 mcg/ (IV Solution) 100 mls @ 4.94 mls/hr IV .[id number] [facility]; Protocol Last Titration: 12/30/23 15:05 Dose: 0 mcg/kg/hr, 0 mls/hr Daptomycin 600 mg/ Sodium (Chloride) 50 mls @ 100 mls/hr IVPB Q24H [facility]; Protocol Last Admin: 12/31/23 12:41 Dose: 100 mls/hr Ceftolozane/Tazobactam 3 gm/ (Sodium Chloride) 100 mls @ 100 mls/hr IV Q8H [facility]; Protocol Last Admin: 12/31/23 15:30 Dose: 100 mls/hr Fat Emulsion Intravenous 250 (ml/ IV Solution) 250 mls @ 21 mls/hr IV DAILY@1000 NIRMAL Last Admin: 12/31/23 09:55 Dose: 21 mls/hr Propofol 1,000 mg/ IV Solution 100 mls @ 9.144 mls/hr IV .[id number] [facility]; Protocol Last Titration: 12/31/23 11:40 Dose: 20 mcg/kg/min, 12.192 mls/hr Parenteral Vitamin Supplement 10 ml/ Zinc/Copper/Manganese/Selenium 1 ml/ Potassium Acetate 40 meq/ Amino Ac/Electrol/Dextrose/Calcium 2,031 mls @ 90 mls/hr IV .[id number] [facility] Last Admin: 12/31/23 14:23 Dose: 90 mls/hr Potassium Chloride 10 meq/ (Sodium Chloride) 100 mls @ 100 mls/hr IVPB Q1H [facility]; Protocol Stop: 12/31/23 19:59 Insulin Aspart (Insulin Aspart (Novolog) 100 Unit/Ml Vial) 0 unit SQ 0000,0600,1200,1800 [facility]; Protocol Last Admin: 12/31/23 12:40 Dose: 2 unit Levetiracetam (Levetiracetam Iv 500 Mg/5 Ml Vial) 250 mg IVP Q24HR [facility]MAL Last Admin: 12/31/23 09:55 Dose: 250 mg Lorazepam (Lorazepam 2 Mg/Ml Inj) 1 mg IV Q6HR PRN PRN Reason: Anxiety Last Admin: 12/31/23 09:55 Dose: 1 mg Metoprolol Tartrate (Metoprolol Tartrate 5 Mg/5 Ml Vial) 2.5 mg IVP Q6HR PRN PRN Reason: Heart Rate - HIGH Last Admin: 11/27/23 08:25 Dose: 2.5 mg Midodrine (Midodrine 5 Mg Tab) 5 mg PO AC-TID NIRMAL Last Admin: 12/31/23 12:58 Dose: Not Given Miscellaneous Information (Magnesium Replacement Protocol 1 Each Misc) 1 each MISCELLANE DAILY PRN; Protocol PRN Reason: Per Protocol Miscellaneous Information (Potassium Replacement Protocol 1 Each Misc) 1 each MISCELLANE DAILY PRN; Protocol PRN Reason: Per Protocol Multi-Ingred Cream/Lotion/Oil/Oint (Hydrophilic Cream 180 Gm Tube) 1 applic TOPICAL BID [facility]MAL; Protocol Last Admin: 12/31/23 09:57 Dose: 1 applic Multi-Ingredient Ointment (Zinc Oxide 20% Oint 28.4 Gm Tube) 1 applic TOPICAL BID PRN; Protocol PRN Reason: Skin Irritation Naloxone HCl (Naloxone 0.4 Mg/Ml 1 Ml Vial) 0.2 mg IV Q2M PRN PRN Reason: Opioid Reversal Pantoprazole Sodium (Pantoprazole 40 Mg/10 Ml Vial) 40 mg IVP BID NIRMAL Last Admin: 12/31/23 09:55 Dose: 40 mg Petrolatum (Zinc Oxide Paste (Z-Guard) 1 Applic) 1 applic TOPICAL BID NIRMAL; Protocol Last Admin: 12/31/23 09:58 Dose: 1 applic Past medical history to include: GERD Social history: . No smoking. Physical examination: VITAL SIGNS: 97.2, 90, 31, 168 x 73, 98% on the ventilator GENERAL: Sedated. Left groin dialysis catheter. Right chest wall port. Getting TPN and lipids EYES: Pupils equal. Conjunctiva edouard l. HEENT: External appearance of nose and ears normal, tracheostomy-. NECK: JVD unable to assess; masses not palpable. HEART: First and second heart sounds are normal; edema, present LUNGS: Respiratory rate increased, decreased breath sounds ABDOMEN: Soft, some tenderness. Liver spleen not palpable, no masses pa lpable..jejunostomy tube-dressing in place, soaked. RAYA drain. Incision with stitches with - wound VAC PSYCH: Unable to assess NEURO: Patient sedated INVESTIGATIONS, reviewed in the clinical context: Sputum culture [December 24] Citrobacter freundii, Pseudomonas aeruginosa Blood culture [December 24] Staphylococcus pettenkoferi December 30: White count 12.8 hemoglobin 7.3 platelets 67 sodium 140 potassium 3.6 creatinine 1.15 December 24: White count 1.5 hemoglobin 8.2 platelets 106 potassium 3.8 BUN [address] chest abdomen without contrast [December 16] right upper lung cavitary lesion with air-fluid level in the posterior aspect and a larger cavitary lesion possibly within the lung parenchyma itself. Extending down towards the diaphragm additional airspace opacities in the left lung base. December 09: White count 26.1 hemoglobin 8.6 platelets 154 potassium 4.1 BUN 86 creatinine 3.31. Hemoglobin this morning was 6.6 prior to transfusion EEG-evidence of generalized cerebral dysfunction and sporadic intermittent higher amplitude sharply contoured waves mainly bifrontal. Showing cortical irritability. 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 Serosal fibrous adhesions. Viable margins. Sputum culture: [November 25]: Citrobacter freundii. Pseudomonas aeruginosa November 20: White count 14.4 hemoglobin 8.8 platelets 229 potassium 4.1 BUN [address] scan abdomen [November 19] possible small bowel obstruction Stool: C. difficile negative November 15: WBC 13 hemoglobin 7.7 platelets 248 potassium 4.3 creatinine 0.87 2D echo: EF 55 to 60%. Kidneys bladder: Unremarkable November 13: White count 12 hemoglobin 6.9 platelets 276 potassium 4.4 creatinine 1.21 magnesium 1.8 iron 6 TIBC 365% saturation 1.64 transferrin 261 ferritin 34.6 B12 569 folate 4.4 November 11: Creatinine 0.86 EGD: Large amount of retained solid liquid food noted in the stomach. Large superficial gastric antral ulceration involving most of the antrum extending into the pylorus causing pyloric stenosis. Biopsies were obtained. Chest x-ray film personally reviewed by me-scattered infiltrates Assessment plan: -Aspiration pneumonitis bilateral from retained gastric contents mostly food and liquids, causing acute hypoxic respiratory failure: On presentation: Subsequent bacterial pneumonia sputum culture November 25: Citrobacter freundii, Pseudomonas aeruginosa. December 13: Klebsiella oxytoca, Pseudomonas aeruginosa IV meropenem-was received originally. Also received IV Zosyn. Currently receiving:iv aniedulefungin, IV ceftolozane/tazobactam, IV daptomycin -Sepsis with septicemia from above Antibiotics -Probable lung abscess larger 1 on the right side-patient cultures are growing Pseudomonas and Klebsiella oxytoca , daptomycin, other antibiotics -Acute pulmonary edema and fluid overload from hypoalbuminemic state and fluids from IV.:: Has been getting Lasix and dialysis: Both held -Altered mentation. Possibly encephalopathy. Could be delirium.: Not improving CT brain [December 06] nothing acute Neurology following EEG-evidence of generalized cerebral dysfunction and sporadic intermittent higher amplitude sharply contoured waves mainly bifrontal. Showing cortical irritability. Keppra was started on December 07 -Critical care poly- Pedro neuropathy: Slow to respond PT OT -Gallstones, asymptomatic -Small l bowel perforation at site of jejunostomy tube tip with balloon..: Portion of small bowel resected. On November 24. New J-tube was placed.- drainage to gravity:-Now discontinued December 19: J-tube blocked. J-tube replaced on December 20 over wire December 21: Leaking around the J-tube site. Feeding held December 23: J feeding was started yesterday evening but again started leaking increasingly around the J-tube site-feeding held again December 24: J-tube feeding has been held. Patient is currently having increased drainage from the J-tube site and also Abarca bag over the ostomy -Acute kidney injury. Possible ATN from hypotensive shock: Slow to respond Renal ultrasound unremarkable. Started on renal replacement therapy on November 28. Followed by nephrology-dialysis has been held -Nutrition Jejunostomy tube placed November [address] Ewing Received TPN-this was discontinued. TPN lipids restarted on December 24 -Midline abdominal incision wound dehiscence Wound VAC placed -Acute recurrent atrial fibrillation-converted to sinus rhythm Received IV amiodarone. Cardiology following Lopressor -Acute hypoxic respiratory failure from aspiration pneumonia, status post ventilator assisted: Reintubated November 25. FiO2 35 PEEP of 5 Tracheostomy tube-by Dr. Zepeda on December 09 -Septic shock, recovered -Hypertension Patient started on Cleviprex-discontinued -Intermittent hypotension Intermittent use of Levophed. 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 Also anemia of blood draw. Iron deficiency anemia Received 3rd unit of blood . IV iron. -Severe thrombocytopenia. Would consider coagulation disorder secondary to infection., In the setting of underlying lymphoma.: Recovered Hematology following. 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 difficile ruled out. -Large superficial gastric antral ulceration involving the gastric antrum extending into the pylorus with gastric outlet obstruction. 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 Port placed. For outpatient PET scan. -Full code Patient continues to do poorly. As above discussed with patient's at length. And the daughter in the waiting room. My personal suggestion of hospice/comfort care. Dr. BINGHAM later spoke to the family. Past Medical History Past Medical History: GERD/Reflux History of Any Multi-Drug Resistant Organisms: None Reported Past Surgical History: Heart Catheterization Additional Past Surgical History / Comment(s): colonsocopy,spinal injection, Past Anesthesia/Blood Transfusion Reactions: No Reported Reaction Past Psychological History: No Psychological Hx Reported Smoking Status: Never smoker Past Alcohol Use History: None Reported Past Drug Use History: None Reported
[2023-12-31] MEDS: POTASSIUM CHLORIDE 10 MEQ in SODIUM CHLORIDE 0.9% 100 ML IVPB SCH (18:53)
--- NOTE | 2023-12-31 19:31 | P.PN ---
Subjective Patient is seen for follow-up for acute kidney injury. Nonoliguric. Started on hemodialysis November 29, 2023. Currently off of dialysis as renal function has recovered. Last dialysis on 12/18/2023 Renal function continues to improve. Tube feeds currently held. Receiving TPN. FiO2 at 30%. Family is present at bedside. Objective - Vital Signs Vital signs: Vital Signs Temp 97.2 F L 12/31/23 16:00 Pulse 92 12/31/23 18:00 Resp 27 H 12/31/23 18:00 BP 103/71 12/31/23 02:00 Pulse Ox 97 12/31/23 18:00 FiO2 30 12/31/23 18:00 Intake & Output 12/31/23 12/31/23 01/01/24 06:59 18:59 06:59 Intake Total 1200 3075.904 89.408 Output Total 1150 1910 Balance 50 1165.904 89.408 Weight 101.1 kg Intake: IV 120 1843 0.9 120 153 Anidulafungin 100 mg In 100 Sodium Chloride 0.9% 100 ml @ 84 mls/hr IVPB DAILY [facility] Rx#:[id number] Ceftolozane/Tazobactam 3 100 gm In Sodium Chloride 0.9 % 100 ml @ 100 mls/hr IV Q8H [facility] Rx#:[id number] DAPTOmycin 600 mg In 50 Sodium Chloride 0.9% 50 ml @ 100 mls/hr IVPB Q24H [facility] Rx#:[id number] Fat Emulsion 20% 250 ml 250 In Empty Bag 1 bag @ 21 mls/hr IV DAILY@1000 [facility] Rx#:[id number] Potassium Chloride 10 meq 200 In Water For Injection 1 100ml.bag @ 100 mls/hr IVPB Q1H [facility] Rx#: [id number] TPN 990 Intake, IV Titration 200 1142.904 89.408 Amount Mvi, Adult No.4 with Vit 1039.5 K 10 ml Trace (Conc-1Ml/ Dose) 1 ml Sodium Acetate 18 meq Potassium Acetate 28 meq Magnesium Sulfate gm 1 gm Calcium Gluconate 1 gm Potassium Phosphate 9 mmol In Amino Acid 5%-D15w 1,000 ml @ 90 mls/hr IV .BY DURATION [facility]MAL Rx#:[id number] propofoL 1,000 mg In 200 103.404 89.408 Empty Bag 1 bag @ 15 MCG/ KG/MIN 9.144 mls/hr IV . [id number] [facility] Rx#:[id number] TPN/PPN 880 90 TPN 880 90 Output: Gastric Drainage 200 400 Drainage 40 210 Right Abdomen 40 210 Urine 910 1300 Other: Voiding Method Indwelling Catheter Indwelling Catheter # Bowel Movements 0 ABP, PAP, CO, CI - Last Documented Arterial Blood Pressure 151/66 - Exam patient is on the vent. Examination of lower extremities shows edema 1+ bilaterally in upper and lower extremities. - Labs CBC & Chem 7: 12/31/23 04:45 12/31/23 14:32 Labs: Abnormal Lab Results - Last 24 Hours (Table) 12/30/23 12/31/23 12/31/23 Range/Units 23:50 04:45 04:45 WBC 12.8 H (3.8-10.6) k/uL RBC 2.43 L (4.30-5.90) m/uL Hgb 7.3 L (13.0-17.5) gm/dL Hct 22.4 L (39.0-53.0) % RDW 18.4 H (11.5-15.5) % Plt Count 67 L (150-450) k/uL Neutrophils # 9.3 H (1.3-7.7) k/uL ABG O2 Saturation (94-97) % Hemoglobin (13.0-17.5) gm/dL Chloride 119 H (98-107) mmol/L Carbon Dioxide 20 L (22-30) mmol/L BUN 43 H (9-20) mg/dL Glucose 198 H (74-99) mg/dL POC Glucose (mg/dL) 226 H (70-110) mg/dL Calcium 6.8 L (8.4-10.2) mg/dL 12/31/23 12/31/23 12/31/23 Range/Units 04:50 05:58 11:55 WBC (3.8-10.6) k/uL RBC (4.30-5.90) m/uL Hgb (13.0-17.5) gm/dL Hct (39.0-53.0) % RDW (11.5-15.5) % Plt Count (150-450) k/uL Neutrophils # (1.3-7.7) k/uL ABG O2 Saturation 98.2 H (94-97) % Hemoglobin 7.0 L* (13.0-17.5) gm/dL Chloride (98-107) mmol/L Carbon Dioxide (22-30) mmol/L BUN (9-20) mg/dL Glucose (74-99) mg/dL POC Glucose (mg/dL) 223 H 184 H (70-110) mg/dL Calcium (8.4-10.2) mg/dL 12/31/23 Range/Units 18:01 WBC (3.8-10.6) k/uL RBC (4.30-5.90) m/uL Hgb (13.0-17.5) gm/dL Hct (39.0-53.0) % RDW (11.5-15.5) % Plt Count (150-450) k/uL Neutrophils # (1.3-7.7) k/uL ABG O2 Saturation (94-97) % Hemoglobin (13.0-17.5) gm/dL Chloride (98-107) mmol/L Carbon Dioxide (22-30) mmol/L BUN (9-20) mg/dL Glucose (74-99) mg/dL POC Glucose (mg/dL) 201 H (70-110) mg/dL Calcium (8.4-10.2) mg/dL Microbiology - Last 24 Hours (Table) 12/28/23 12:22 Catheter Tip Culture - Final Catheter Tip Assessment and Plan Assessment: 1. Acute kidney injury secondary to ATN secondary to septic shock. Creatinine 0.86 on admission and up to 5.38 dated November 29, 2023. nonoliguric. UA fairly benign. No hydronephrosis noted on imaging. Started hemodialysis on 11/29/2023 for worsening volume status and acute kidney injury. Renal function has improved and dialysis catheter was discontinued on 12/28/2023 2. Perforated small bowel status post exploratory laparotomy with abdominal washout, small bowel resection and J-tube replacement November 25, 2023. 3. A-fib with RVR. s/p amiodarone drip. 4. Recently diagnosed gastric B-cell lymphoma. 5. Septic shock. 6. Hypokalemia status post replacement. 7. Hypophosphatemia, being supplemented in TPN. 9. Hypernatremia, status post D5W and improved. Plan: continue with TPN. Repeat labs in a.m. and adjust TPN as needed.
[2023-12-31 23:20] LABS: Glucose,Whole Blood 203 mg/dL (70-110)
[2024-01-01 04:30] LABS: ABG Base Excess -3.5 mmol/L; ABG HCO3 21 mmol/L (21-25); ABG Oxygen Saturation 98.5 % (94-97); ABG PCO2 34 mmHg (35-45); ABG PO2 98 mmHg (83-108); ABG TCO2 22 mmol/L (19-24); Allen Test Performed? Yes
[2024-01-01 04:32] LABS: Anisocytosis Slight; Basophils # (A) 0.1 k/uL (0-0.2); Basophils % (A) 0 %; Eosinophils # (A) 0.1 k/uL (0-0.7); Eosinophils % (A) 1 %; Hypochromasia Moderate; Lymphocytes # (A) 2.6 k/uL (1.0-4.8); Lymphocytes % (A) 21 %; MCH 29.1 pg (25.0-35.0); MCHC 31.6 g/dL (31.0-37.0); MCV 92.1 fL (80.0-100.0); Mean Platelet Volume 11.3; Monocytes # (A) 0.4 k/uL (0-1.0); Monocytes % (A) 3 %; Neutrophils # (A) 8.9 k/uL (1.3-7.7); Neutrophils % (A) 73 %; RBC 2.39 m/uL (4.30-5.90); RDW 18.5 % (11.5-15.5); WBC 12.1 k/uL (3.8-10.6)
[2024-01-01 04:37] LABS: Platelet Count 69 k/uL (150-450)
[2024-01-01 04:43] LABS: Reticulocyte % 1.8 % (0.5-2.0)
[2024-01-01 04:52] LABS: African American GFR (CKD) 77 (>60 ml/min/1.73 sqM); Anion Gap 2 mmol/L; Blood Urea Nitrogen 44 mg/dL (9-20); Carbon Dioxide 19 mmol/L (22-30); Chloride 120 mmol/L (98-107); Glucose 140 mg/dL (74-99); Non-African American GFR(CKD) 66 (>60 ml/min/1.73 sqM); Potassium 4.3 mmol/L (3.5-5.1); Sodium 141 mmol/L (137-145)
[2024-01-01 05:31] LABS: Phosphorus 3.1 mg/dL (2.5-4.5)
--- NOTE | 2024-01-01 07:23 | XR ---
EXAMINATION TYPE: XR chest 1V portable DATE OF EXAM: 01/01/2024 Comparison: 12/31/2023 Clinical History: 73-year-old male mechanical ventilation Findings: Tracheostomy cannula. Right anterior chest wall injection port. Additional left PICC line. Disks are secured by overlying EKG leads. At least one of these extends down to the lower right atrium. Heart b orderline enlarged. Mild interstitial density persists. Small left pleural effusion with retrocardiac and left basilar opacity similar to slightly increased. Ongoing moderate right pleural effusion and prominent parenchymal opacity at the right apex as well as a convexity marginated opacity at the righ t hilum. Impression: 1. Ongoing moderate right pleural effusion with adjacent atelectasis and/or consolidation, convexly m arginated opacity at the right hilum, and prominent pleural parenchymal opacity at the right apex. 2. Small left pleural effusion with prominent left basilar atelectasis and/or consolidation similar t o slightly increased. [facility], , 01/01/2024 7:20 AM
[2024-01-01 08:34] LABS: % Iron Saturation 12.38 (15.00-50.00)
--- NOTE | 2024-01-01 10:43 | P.PN ---
Subjective Progress Note Date: 01/01/24 Principal diagnosis: Abdominal pain. This is a 73-year-old white male with history of chronic abdominal pain for the last 8 months has been treated with Protonix 40 mg daily for the last 3 months with no improvement. Patient had a 22 pound weight loss in the last [address] of the abdomen and pelvis 3 weeks ago showed thickening of the antral wall with pathological adenopathy posterior to the stomach suspicious of neoplasm. Today the patient underwent elective upper endoscopy to evaluate further, patient received IV sedation by anesthesia endoscope was inserted into the mouth, esophagus was intubated without any difficulty there was evidence of large amount of liquid and solid food noted in the stomach suggestive of gastric outlet obstruction. Scope could not be advanced through the pylorus, however in the prepyloric area there was a large superficial ulceration identified with multiple biopsies were done from this area. The body cardia and fundus could not adequately visualize because of large amount of retained food in the stomach. Scope was withdrawn back to the stomach and upon careful examination the mucosa of the antrum body and cardia as well as the fundus appeared normal. Procedure was being performed and biopsies were done patient threw up and subsequently became hypoxic there was clearly evidence of witnessed aspiration anesthesia intubated the patient, procedure was terminated, and the patient was transferred to the ICU, this consult was initiated. Patient is now on assist- control rate of 20 tidal volume 500 FiO2 70% PEEP of 10 ABG is pending, earlier ABG showed profound hypoxia patient is on propofol at 50 mcg/kg/min, next ABG is pending. Chest x-ray showed chronic changes without evidence of acute pulmonary disease. Patient was seen and examined today on 11/13/2023, remains in the ICU, intubated mechanically ventilated, on assist-control rate of 20 tidal volume 500 FiO2 50% and PEEP of 10 ABG showed a pO2 of 143 pCO2 47 pH of 7.28 hence PEEP was cut down to 6, and increased rate to 22. Patient is still requiring IV fluid at 100 cc/h/LR. Requiring norepinephrine at 0.08 mcg/kg/min he is also on propofol at 50 mg/kg/min antibiotics arce patient is receiving Zosyn. Chest x-ray is showing worsening infiltrates specially in the left lung. This could be related to aspiration pneumonia. Patient had witnessed aspiration during endoscopy/upper endoscopy.WBC count is 14 hemoglobin 7.6 basic metabolic profile is normal BUN is 26 creatinine 1.57 obviously the patient sustained some acute kidney injury baseline creatinine 0.86 patient had received fluids over the last 24 hours, remains on fluids at 100 cc/h Patient with seen and examined today on 11/14/2023, patient remains in the ICU, intubated and mechanically ventilated. Failed weaning trial yesterday and he became quite agitated and desaturated once he went off propofol. Had to be placed back on assist-control mode of mechanical ventilation and sedation. Today the patient is on assist-control rate of 22 tidal volume 500 FiO2 50% PEEP of 6. ABG showed a pO2 of 123 pCO2 51 pH of 7.32, and I cut down his FiO2 down to 45%, patient is receiving a unit of packed RBCs for hemoglobin of 6.9 today. Patient had an episode of A-fib RVR at 3 AM in the morning, seen by cardiology, and recommended patient goes on amiodarone. Still requiring norepinephrine at 0.05 mg/kg/min, he is on LR at 100 cc/h propofol at 50 mg/kg/min. Remains empirically on Zosyn for aspiration pneumonia. My plan today is transitioning the patient to Precedex, hopefully discontinue propofol, and at least give the patient a decent weaning trial or at least check weaning parameters before we proceed to weaning trial. Chest x-ray continues to show evidence of pneumonia mostly in the left lung and left lower lobe more specifically. Some pulmonary vascular congestion is noted with interstitial edema, small pleural effusion is also noted/left side. WBC count today is 12 hemoglobin 6.9 basic metabolic profile is normal bicarb is 25, BUN is 25 creatinine is improving down to 1.21 from 1.57 yesterday Patient was evaluated today on 11/15/2023, patient remains in the ICU, he was extubated yesterday, and his extubation was relatively uneventful. However the patient continues to have nasogastric tube in place, his pathology report came back showing non-Hodgkin's lymphoma, patient has gastric outlet obstruction, and the recommendation by GI is to consult surgery for a jejunostomy tube which is appropriate. Patient will be seen today by oncology and [facility] In the meantime patient is comfortable, he is on 5 L nasal cannula he has LR running at 100 cc/h, he is remains on Zosyn for aspiration pneumonia remains on amiodarone which was started by cardiology for atrial fibrillation with RVR, presently in sinus rhythm. Cannot switch him to oral because of the fact that remains n.p.o., patient remains on TPN. WBC count is 10.7 hemoglobin 7.5 electrolytes are normal renal profile is normal, creatinine normalized to 0.96 Patient was evaluated today on 11/16/2023, remains in the ICU, on 5 L nasal cannula remains on amiodarone at 0.5 mg/min remains on LR at 100 cc/h, however his chest x-ray is showing some component of interstitial edema or could be findings related to his recent episode of aspiration/aspiration pneumonia, nonetheless the patient seems to be a bit symptomatic, he has intermittent cough and wheezing, I am recommending Lasix 40 mg IV push, cut down his IV fluid to 50 cc/h, continue Zosyn, patient will be placed on DuoNeb updrafts and on Solu- Medrol. Patient is scheduled to have jejunostomy-tube placement today. WBC count is 13 hemoglobin 7.7 basic metabolic profile is normal and renal profile is normal Patient was evaluated today on 11/17/2023, patient underwent uneventful placement of a jejunostomy tube yesterday, in the ICU on 5 L, patient is relatively stable, not in any distress, patient continues to have nasogastric tube in place although he did have a J-tube placed yesterday. Patient was seen by oncology for his non-Hodgkin's lymphoma involving the gastric outlet. Today's x-ray showed evidence of pneumonia/bilateral interstitial infiltrate/edema patient was given a dose of Lasix, I reminded the patient had an aspiration episode which was significant. And he required intubation mechanical ventilation for a few days.WBC count today is 9.1 hemoglobin 7.9 electrolytes are normal renal profile is normal hence I plan to transfer the patient out of the ICU to a cardiac floor. And hopefully discharge planning in the next 2 days for The patient was seen today November 18, 2023 in follow-up in the intensive care unit. He is currently sitting up in bed. Awake and alert in no acute distress. He is maintaining O2 saturations in the 90s on 5 L/min per nasal cannula. Glucose 177. Remains on DuoNeb inhalations and Solu-Medrol. Antibiotics in the form of Zosyn. He has a J-tube in place. He was initiated on vital AF 1.2 at 10 mL an hour with a goal of 82 mL/h The patient is seen today November 19, 2023 in follow-up in the intensive care unit. He is a regular medical floor overflow patient. He is currently sitting up in a chair. Awake and alert in no acute distress. He is maintaining O2 saturations in the 90s on 5 L/min per nasal cannula. No IV fluids. He denies any worsening shortness of breath, cough or congestion. He is having some issues with diarrhea. He remains on Zosyn. He is receiving vital AF at 55 mL/h with a goal of 82 mL/h. Glucose 161. Solu-Medrol, DuoNeb inhalations. The patient is seen today November 20, 2023 in follow-up on the regular medical floor. He is currently up in a chair at the bedside. Awake and alert in no acute distress. Denies any worsening shortness of breath, cough or congestion. He is maintaining O2 saturation in the 90s on 3 L/min per nasal cannula. He continues on Zosyn. Continues on bronchodilators and steroids. White count 12.3. Hemoglobin 9.0. Platelets 258. Glucose 168. He is not tolerating his tube feeds as he has developed diarrhea. C. difficile screen was negative. Abdominal series revealed cardiomegaly with left basilar acute infiltrate and/or atelectasis. Overall nonspecific bowel gas pattern. A small bowel obstruction needs to be considered. Progress note dated November 21, 2023. The patient is seen in room 517. The patient is currently on 3 L of oxygen. He continues on Zosyn. His biggest complaint has been abdominal discomfort and diarrhea. He did have a CT scan of the abdomen and pelvis. Current laboratory data includes a white count of 14.4, hemoglobin 8.8, hematocrit 28.7, and platelet count 229,000. Sodium 139, potassium 4.1, chlorides 103, CO2 30, BUN 42, creatinine 0.94. Glucose is 158. Calcium is 8.5. Progress note dated November 22, 2023. 73-year-old male seen in room 517. He currently is on 2 L of oxygen. Room air saturation was 89%. Chest CT shows bilateral patchy infiltrates. He continues on Zosyn. He is still not taking anything by mouth. No new laboratory data today other than a glucose of 138. Gram stain was negative. Progress note dated November 23, 2023. 73-year-old male seen in room 517. He is resting comfortably without com plaints. He continues on saline at 10 cc an hour, tube feedings with Pivot at 20 cc an hour, Zosyn, and 2 L by nasal cannula. He has had an uneventful night. Laboratory data today includes a white count 14.5, hemoglobin 9.7, hematocrit 31.4, and a platelet count of 242,000. Sodium 138, potassium 3.7, chlorides 106, CO2 26, BUN 39, creatinine 0.95. Glucose is 181. Calcium is 8.5. Sputum sampling was negative. Progress note dated November 24, 2023. 73-year-old male who is seen in room 517. The patient has been having significant abdominal discomfort, and went for a evaluation, ordered by surgery today, to determine whether or not the feeding tube, was in proper position, and whether or not there is anything acutely going on in the abdomen. He had been having diarrhea. He is on 3 L of oxygen. He has been here for 12 days. This is a patient, that had a prior EGD, aspirated, because of gastric outlet obstruction, and was diagnosis of non-Hodgkin's lymphoma. He is currently on Zosyn, DuoNebs, and Solu-Medrol. He has been NPO. Chest x-ray showed a left lower lobe infiltrate. Abdominal x-ray showed multiple air-fluid levels. CT of the abdomen showed multiple dilated small bowel loops, consistent with obstruction, pneumoperitoneum, ascites, and cholelithiasis. White count was 14.1, hemoglobin 8.9, hematocrit 29.5, and platelet count was 255,000. Glucose was 143. 11/25/2023, the patient is being seen in the intensive care unit. The patient is critically ill, n.p.o., he has an NG tube in place. Following the NG tube insertion, there was a total of 2.0 L of output and the patient's J-tube was also draining approximately 200 cc over the past 8 hours. Continues to have abdominal pain which is rather diffuse and the patient has direct abdominal tenderness. CAT scan of the abdomen was noted and was consistent with small bowel obstruction. The patient has a stomach that was inflated and in the same time there were multiple loops of small bowel distended with fluid. This extended to the pelvis. J-tube with contrast nondilated small bowel loops within the mid abdomen. Additional loops of small bowel were seen that was dilated. There was some contrast in the right lower quadrant and contrast was also in the cecum. No transition point was identified. The dilated loops of the bowel appeared to be in the proximal jejunum and distal to the duodenum. General surgery is on the case the patient will be taken to the operating room for another exploratory laparotomy. Noted the CAT scan of the abdomen also showed pneumoperitoneum and small amount of ascites and cholelithiasis. Hemodynamically, the patient is currently on normal saline at rate of 75 cc an hour. He is hypotensive and is going to be started on pressors. He is on 4 L of oxygen by nasal cannula. He also has sustained acute kidney injury. Blood work from today shows a rise in the creatinine which is currently up to 2.5 with a BUN of 57. Serum bicarb is at 14 with an anion gap of 11. The patient WBC count is at 8.2 with a hemoglobin of 12.3 and a platelet count of 188. Chest x- ray from this morning is showing a right-sided port and a stable left lung airspace disease and an NG tube being in place. The patient remains on IV Zosyn. The patient is receiving Dilaudid for pain control. The patient remains on IV Solu-Medrol 60 mg every 6 hours. It was noted that the patient's surgical wound over the port has dehisced and there is some serous drainage and erythema at the incision site. Awake and alert and communicating. Family at the bedside. No apparent signs of respiratory distress at this point. 11/26/2023, the patient is being seen in follow-up. Events from yesterday was noted and the patient was taken to the operating room for exploratory laparotomy. The patient was found to have large amount of free fluid noted in the abdomen and there was significant contamination. There was perforation of the small bowel with the balloon of the previously inserted jejunostomy tube penetrating through the perforation. As such, the tube was removed, abdominal washout was done. Small bowel resection was done and the patient had a nodular jejunostomy tube inserted. Postop, the patient was extubated he was unable to tolerate extubation and the patient was kept intubated on mechanical ventilator and he was brought back to the intensive care unit. He is currently postop day #1 following his small bowel resection. Abdominal surgical wound site is dry c lean and intact. This morning, the patient remains sedated on propofol which is currently running at 35 mcg/kg/min. He is on assist-control mode of mechanical ventilation at rate of 28, tidal volume of 550, FiO2 of 60% with a PEEP of 5. Blood gas from today shows a pH of 7.35 with a pCO2 44 and pO2 of 88. Chest x- ray shows adequate positioning of the orotracheal tube. The patient has a Mediport on the right and a subclavian triple-lumen catheter on the left and the patient has persistent bilateral pleural effusion and infiltrates in lung base bilaterally. Hemodynamically, the patient remains in shock. He has been on high-dose norepinephrine which is currently running at 0.28 mcg/kg/min and the patient is also on vasopressin at 0.03 units an hour. He is IV fluids are in the form of bicarb infusion running at rate of 150 cc an hour. He is in sinus tachycardia. NG tube output has been 250 cc over the past 8 hours and the output from the J-tube is minimal at this point in time. Urine output is quite diminished as the patient has also sustained acute kidney injury. Overall fluid balance is +4.9 L over the past 24 hours. The patient's white cell count of 5.7 with a hemoglobin 9.9 and platelet count of 172. BUN is 72 with a creatinine of 2.8 and sodium levels at 143. The calcium level is at 6.5. LFTs are normal. Triglyceride level is at 315. On 11/27/2023, the patient remains critically ill. Remains intubated and on mechanical ventilator, still awaiting shock which is essentially septic shock. Remains on propofol which is running at 50 mcg/kg/min. Remains on the mechanical ventilator, assist-control mode with rate of 28, tidal volume of 550 with an FiO2 of 60% with a PEEP of 5. Blood gas shows a pH of 7.29 with a pCO2 of 47 and pO2 of 78. The patient had a follow-up chest x-ray that showed lower lobe consolidation slightly worse on the right and the orotracheal tube is in a good location. Urine output is diminished in the order of 5 to 10 cc an hour and the patient is also developing progressive worsening renal function. Remains on normal citrate of 150 cc an hour and the patient was started on TPN which is running at 30 cc an hour. He has a triple-lumen catheter in his left subclavian. Overall fluid balance over the past 24 hours is +3.9 L. Output from the NG tube and the J-tube is minimal. Hemodynamically, he is hypotensive and norepinephrine running at 0.45 mcg/kg/min. Vasopressin is a physiologic dose. He received amiodarone and he remains on maintenance amiodarone of 0.5 mg/min and the patient continues to be in atrial fibrillation and is having episodes of tachycardia. The white cell count is at 13, hemoglobin 9.4 platelet count is pending. The patient's BUN is 83 with a creatinine of 3.7. Sodium is at 140 with a potassium level of 5.5 dropped down to 4.4 as the sample was hemolyzed. LFTs are normal. Abdominal wound is dry clean and intact. RAYA drainage is essentially serous at this point in time. 11/28/2023, the patient is being seen for a follow-up. The patient remains intubated on mechanical ventilator. This morning, the patient tolerated propofol drip running at 50 mcg/kg/min. The patient is on mechanical ventilator assist-control mode with rate of 28, tidal volume of 550, FiO2 55% with a PEEP of 5. Chest x-ray shows stable findings with lower lobe consolidations bilaterally. Blood gas shows a pH of 7.32 with a pCO2 38 and pO2 90. Neuropathy has improved and the patient is producing approximately 30 cc an hour and the overall input output balance is +3.3 L over the past 24 hours. The patient is still on pressors although his pressor requirements have improved since yesterday. He is on norepinephrine which is running at 0.05 mcg/kg/min and vasopressin physiologic dose. Also, the patient on amiodarone drip regarding his chronic ongoing atrial fibrillation. Amiodarone drip is running at 0.5 mg/min. Nevertheless, the rate is under much better control. Noted the patient was given a dose of digoxin 0.5 mg IV yesterday which helped with rate control. Remains on normal citrate of 150 cc an hour. Remains on TPN at 40 cc an hour. Output from the J-tube is fecal. Output from the NG tube is more gastric. Surgical wound site is dry clean and intact. Sputum Gram stain and culture showing Pseudomonas and Citrobacter. Note that the Citrobacter was intermediate resistance to Zosyn. This will be discussed further with infectious disease. Blood cultures are still pending for now. They have negative based on the most recent check. Blood work from today shows WBC count 11.2, hemoglobin 7.9 and platelet count of 46. Sodium is at 140, potassium is at 4.3, chloride is 114 with a bicarb of 18. He has 93 and the creatinine is 4.8. Serum random vancomycin level is at 25.7. On 11/29/2023, the patient is being seen for a follow-up. Remains intubated on the mechanical ventilator. The patient sedated on propofol which is running at 35 mcg/kg/min. Synchronous with mechanical ventilator. On today's evaluation, he is on assist-control mode with rate of 28, tidal volume of 550, FiO2 55% with a PEEP of 5. Chest x-ray shows lower lobe consolidation bilaterally worse on th e right and the orotracheal tube is in good location. The blood gas showed a pH of 7.34 with a pCO2 of 35 and a pO2 of 84. No significant orotracheal secretions. Hemodynamically improved compared to yesterday. In fact, the patient is on minimal norepinephrine that was discontinued earlier this morning. The patient has converted to normal sinus rhythm. Remains on amiodarone at 0.5 mg/min. Overall fluid balance over the past 24 hours is 2.4 L positive. Urine output has been adequate and the patient is currently on IV Lasix. Nevertheless, the patient has developed progressive worsening renal function. Creatinine is up to 5.3 on today's evaluation with a potassium level of 4.4. Serum bicarb is at 18 with an anion gap of 9. WBC count is at 8.1 with a hemoglobin of 7 and a platelet count of 32 which has dropped compared to earlier evaluation. The rest of the coagulation profile was normal from 11/28/2023. Fibrinogen level is slightly elevated. Sputum samples have shown a combination of Citrobacter and Pseudomonas aeruginosa. Based on cultures and sensitivities, the patient will be taken off his IV Zosyn and he will be switched to IV meropenem. Output from the J-tube is fecal. Output from the NG tube is gastric and surgical wound site is dry clean and intact. He is afebrile for now. Hemodynamically, the patient is doing better. He remains on TPN for nutritional support. IV fluids are also running at a rate of 75 cc an hour. Remains on vancomycin. 11/30/2023, the patient is being seen for a follow-up. The patient remains on propofol at 50 mcg/kg/min. Ventilator settings are essentially unchanged. The patient remains on assist-control mode with rate of 18, tidal volume of 400, FiO2 50% with a PEEP of 5. The blood gas showed a pH of 7.37 with a pCO2 of 43 and pO2 of 127. Chest x-ray shows no significant interval change. Patient remains on normal saline at rate of 75 cc an hour and TPN at rate of 35 cc an hour. Fluid balance is positive. Hemodialysis was performed yesterday and the second session of hemodialysis to be done today. The patient's urine output is in the order of 20 to 30 cc an hour. The patient has an NG output of 350 cc for yesterday and the drainage from the J-tube is in the order of 400 cc over the past 24 hours. The blood work shows a WBC count of 10.8, hemoglobin 8.1 and platelet count of 41. Platelet counts are essentially stable and slightly improved compared to yesterday. The sodium level is at 133, potassium is at 4.3, BUN is 93 with a creatinine of 3.6. LFTs are within normal limits. Albumin is down to 2.1. The patient is currently on no pressors. Norepinephrine and vasopressin are both discontinued and the patient remains in normal sinus rhythm. No other significant events overnight. Family has been updated on his condition. Antibiotic coverage is currently with IV meropenem. Vancomycin and Zosyn have been both discontinued. On 12/01/2023, the patient remains sedated on propofol which is running at 25 mcg/kg/min., Comfortable and synchronous mechanical ventilator. The patient remains on assist-control mode rate of 28, tidal volume of 550, FiO2 40% and PEEP of 5. Blood gas shows a pH of 7.49 with a pCO2 of 34 and pO2 of 121. Patient underwent hemodialysis yesterday. No plans for hemodialysis today the patient is producing urine output. Remains on TPN for nutrition support rate of 75 cc an hour. IV fluids are currently at KVO. The chest x-ray from today shows bilateral lower lobe consolidation worse on the right. No significant change in the volume status. The patient continues to have third spacing and edema in all 4 extremities. Nevertheless, urine output is adequate at this point in time and the patient remains on Lasix 80 mg IV every 12 hours. Remains NPO. NG tube and J-tube are both drainage. Output is noted. Remains on IV meropenem. Afebrile. Currently on no pressors. Blood work shows a WBC count of 11.4, hemoglobin of 8.1 and platelet count of 46. Sodium is at 131, potassium level is at 3.7, chloride 101 and bicarb is at 24. BUN is 84 with a creatinine of 3.6. Glucose of 228. LFTs are within normal limits. Patient was reevaluated today on 12/02/23, patient remains in the ICU, patient is familiar to my service, I saw this patient 3 weeks ago. Since then he had a very complicated hospital course, related to his jejunostomy tube dislodging and leaking and picture of abdominal sepsis and worsening pneumonia/ARDS. Patient had to be placed back on mechanical ventilation, and he is now intubated and mechanically ventilated. He is on assist-control rate of 20 tidal volume 550 FiO2 40% PEEP of 5 ABG showed a pO2 of 111 pCO2 38 pH of 7.43 and I cut down his FiO2 to 35% and increase his flow rate from 60-70. Patient remains on TPN at 75 cc/h he is on propofol at 25 mcg/kg/min patient is on Cleviprex which I added today for elevated blood pressure. Receiving Lasix 80 mg every 12 hours is also on Merrem as per infectious disease. Patient is on hemodialysis and being followed by nephrology. Patient required multiple abdominal surgeries since his initial admission. Chest x-ray continues to show worsening pneumonia involving both lungs, right more so than left, I suspect there may be a component of ARDS. His initial presentation was the presentation of aspiration pneumonia to begin with and that was 3 weeks agoWBC count is 10.3 hemoglobin 8.6 sodium 131 potassium 4 chloride 100 bicarb 23 BUN is 111 creatinine 4.02 blood sugar is 248. Albumin is 1.9 Patient was evaluated today on , patient remains in the ICU, intubated and mechanically ventilated. Patient is on assist-control rate of 20 tidal volume 550 FiO2 35% and PEEP of 5 ABG showed a pO2 of 99 pCO2 39 pH of 7.44 patient is undergoing hemodialysis today, and the plan is to remove 2 L. He is remains on propofol at 35 mcg/kg/min, remains on TPN at 75 cc/h. Remains on Merrem. Patient is not requiring any pressors today. Yesterday patient did not tolerate to be off sedation long enough, and today we tried the same sedation interruption, and the patient did not do well post interruption of sedation, became extremely agitated restless, tachycardic, and could not fully assess mental status off sedation. Hence the patient was placed back on AC mode of mechanical ventilation, and the plan is to continue the same supportive care measures. Family updated on his condition and most likely the patient will end up requiring tracheostomy in the next few days.WBC count is 8.5 hemoglobin 8.2 basic metabolic profile is relatively unremarkable BUN is 89 creatinine 3.45 chest x-ray today showed stable chest, suspect some right-sided pleural effusion which would likely improve with hemodialysis/ultrafiltration. X-ray of abdomen showed nonspecific nonobstructive bowel gas pattern Patient was seen today on 12/04/2023, remains in the ICU, intubated mechanically ventilated, on assist-control rate of 20 tidal volume 550 FiO2 35% PEEP of 5 ABG showed a pO2 of 112 pCO2 38 pH of 7.45, hence no changes were made in ventilator settings. Patient is on propofol at 35 mcg/kg/min he is also on IV fluid at KVO TPN at 75 cc/h. Remains on hemodialysis remains on Lasix 80 mg IV push twice daily, remains on Merrem. This x-ray continues to show the same findi ngs/airspace disease in both lungs, not much of a change in the last 2 days, however his oxygenation seems to be improved. WBC count is 7.1 hemoglobin 7.7. Electrolytes are normal, BUN is elevated 77 creatinine 3.32, patient is on hemodialysis. His condition was discussed today with the at bedside, and I do not believe the patient is ready to be weaned or extubated, however he seems to get extremely agitated when he goes off propofol, today I plan to transition propofol to Precedex, give him a trial on Precedex and determine whether the patient becomes more appropriate and at least ready for any weaning trials. Clinically I doubt if this will happen but we will go ahead and try Patient was evaluated today on 12/05/2023, remains in the ICU, intubated mechanically ventilated, not much of a change noted in the last 24 hours. Remains on assist-control of 20 tidal volume 550 FiO2 35% PEEP of 5 ABG showed a pO2 of 90 pCO2 37 pH of 7.48 hence chose not to change any of his ventilator settings. Yesterday the patient failed again trial of weaning, and he was never anywhere near ready to be weaned in spite of placing him on Precedex and off propofol, at 1 point the patient became extremely agitated restless and he was biting on the endotracheal tube could not fully awake the patient and determine improvement in his mental status. Hence patient was placed back on propofol yesterday and he remains on propofol today. He is on propofol at 25 mcg/kg/min he is on TPN at 75 cc/h surgery is considering starting his J-tube feedings today. Remains on hemodialysis remains on Merrem remains on Lasix 80 mg IV push twice daily overall not much of a change his chest x-ray is basically about the same showing bibasilar airspace disease. Today I had a discussion with the regarding the option of tracheostomy extremely reluctant to have it done yet. Said that the patient had multiple complications with previous surgeries and she is afraid that he is going to have another complication with the surgeryWBC count is 10.2 hemoglobin is 8, basic metabolic profile is normal sodium 130 BUN 70 creatinine 2.89 Patient was seen today on 12/06/23, remains in the ICU, intubated mechanically ventilated, his ventilator settings are assist-control rate 20 tidal volume 550 FiO2 35% and PEEP of 5 ABG showed a pO2 of 103 pCO2 36 pH of 7.47 patient opens eyes but does not follow any other instructions. He is now off propofol for the last 24 hours, he is maintained on Precedex at 0.4, TPN at 75 cc/h vital AF at 5 mL/h. Patient remains on Merrem, patient did not receive dialysis today because issues related to occluded dialysis catheter. Nonetheless the patient is making urine, and continues to improve with diuretics. 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 Blood sugar is 226. Family is at bedside, considering his overall mental status at this point, not quite ready to start checking weaning parameters, and is not ready for weaning. Nonetheless I plan to keep him on Precedex, and hopefully avoid narcotics and other sedatives. His mentation starts clearing a bit more, then will start trials of weaning parameters and/or weaning trials Patient was seen today on 12/07/2023, remains in the ICU, intubated and mechanically ventilated, on assist-control rate of 20 tidal volume 550 FiO2 35% PEEP of 5 ABG showed a pO2 of 83 pCO2 33 pH of 7.50 hence the tidal volume was cut down to 500. Patient remains off propofol remains off narcotics is only on Precedex for sedation at 0.6 mg/kg/h. He is on norepinephrine at 0.02 TPN at 75 cc/h IV fluid at KVO vital AF at 10 mL/h is also on Merrem. Neurologically I am concerned about this patient neurological status, does not seem to be waking up much, he opens his eyes but does not follow any instructions and spite of sedation hold for quite some time. Hence I am recommending a CT of the brain and multiple recommending a neurological consultation on this patient. WBC count is 18 7 hemoglobin is 8.4, basic metabolic profile is normal BUN is 75 creatinine 2.95, patient is back on dialysis, he had a new hemodialysis catheter placed yesterday by vascular surgery, and he will be restarted back on hemodialysis. CT of the brain done shortly after evaluating the patient showed no acute intracranial process chest x-ray basically about the same, continues to show small left and moderate right basilar infiltrate. Has not changed much over the last 1 week, patient remains on antibiotics. Patient was seen today on 12/08/2023, remains in the ICU, intubated and mechanically ventilated, remains on assist-control rate of 20 tidal volume 500 FiO2 35% PEEP of 5 ABG showed a pO2 of 88 pCO2 37 pH of 7.47 hence no changes were made in ventilator settings. Chest x-ray is showing slight increase in his right-sided pleural effusion, however his oxygenation seems to be about the same, and the patient is responding to Lasix given at 80 mg IV push every 12 hours, he is also doing well with hemodialysis he had 2 L removed yesterday and 2 L the day before. Hence will not recommend thoracentesis at this point. But the pleural effusion will need to be closely monitored. Patient remains off propofol he is on Precedex at 0.6 mcg/kg/h. For the last 2 days, and his mentation is not much different from baseline. Continues to open his eyes and does not follow any other instructions has the patient is clearly not ready for weaning trials or extubation. Brought up the issue of tracheostomy again with the , she is still reluctant to proceed with tracheostomy on him at this point. Patient remains on Merrem, remains on TPN but his enteral feeding will be advanced today to full goal, and if that happens then we will can discontinue TPN. Patient is receiving vital AF 1.2@10 mL/h at this point.WBC count is 19.3 hemoglobin 7.6. Basic metabolic profile is normal BUN is 72 creatinine 2.99 blood sugar ranging between 250 up to 334. 12/09/23 - patient seen at bedside today, remaining in the ICU, intubated and mechanically ventilated, remaining on assist-control rate of 20, tidal volume 500, FiO2 30%, PEEP of 5 and oxygen saturation of 100%. Patient is on day 27 of his hospital stay (admitted 11/11), day 15 of this current ICU stay (readmit to the ICU 11/24) and day 15 of this current period of time on the ventilator (placed 11/24). ABG showed pO2 100, pCO2 36, pH 7.47. Chest x-ray was deemed to be stable, however possibly with slight improvement noted on the left with a right-sided pleural effusion remains evident however the patient's oxygenation remains to be about the same. Continue to receive 80 mg IV Lasix every 12 hours and is receiving daily hemodialysis, in which he has been having 2 L removed the past couple of days, hemodialysis yet to occur today. His creatinine is 3.57 (compared to 2.99 yesterday) and BUN 98 (compared to 72 yesterday). Due to this response to diuresis and hemodialysis, no thoracentesis recommended at this point however pleural effusion will need to continue to be monitored. Patient shon off propofol, he is on Precedex at 0.4 mcg/kg/h. Due to his mentation remaining near baseline, neurology had been consulted who ordered an EEG which showed diffuse background slowing of his severe degree which is suggestive for generalized cerebral dysfunction and can be seen with toxic metabolic encephalopathy, as well as the presence of sporadic intermittent, some higher amplitude, sharply contoured waves of generalized distribution. Because of this per neurology's recommendation, patient started on Keppra 500 mg twice daily. The patient does seem to be having some improved mentation, with opening his eyes and responding to commands some of this morning. Spontaneous breathing trial to be attempted today, to see if the patient will be able to come off of mechanical ventilation. If that is unable to occur, discussed with the patient as well as his and one of his daughters that a tracheostomy would be the most appropriate next course of action due to the potential dangers of sustained endotracheal intubation for prolonged period of time. The , while reluctant, seem to acknowledge that this is the appropriate course of action. He remains receiving meropenem 1 g nightly. He remains on TPN 75 mL/h, which she has been on since 11/21 (18), but his enteral feeding has been vital 1.2 AF at 10 mL/h with a goal rate of 80 mL/h. Patient drained 60 mg of serosanguineous fluid from his RAYA. His WBCs increased to 21.5 (compared to 19.3 yesterday), hemoglobin dropped to 7.2 (compared to 7.6 yesterday), hematocrit dropped to 22.0 (compared to 22.9 yesterday) and patient procalcitonin remains elevated at 3.07. 12/10/23 - Patient seen at bedside today, remaining in the ICU, intubated and mechanically ventilated, remaining on assist-control rate of 20, tidal volume 500, FiO2 30%, PEEP of 5 and oxygen saturation of 100%. Patient is on day 28 of his hospital stay (admitted 11/11), day 16 of this current ICU stay (readmit to the ICU 11/24) and day 16 of this current period of time on the ventilator (placed 11/24). ABG showed pO2 93, pCO2 37, pH 7.47, showing evidence of a mild metabolic alkalosis. Chest x-ray today showed stable disease compared to yesterday. He received levo overnight due to atypical blood pressure, patient's TPN was up to 120 due to the change in formula. Patient is scheduled to undergo tracheotomy today (12/09) at 16:30. Per the nurse and the overnight staff patient continues to open his eyes and shows some responsiveness to commands. Per nephrology's recommendation dialysis to be held today due to the patient going for the tracheotomy later, as well as the dip in blood pressure seen after yesterday's dialysis session which required Levophed. Patient's Hgb this morning 6.6, will be given 1 unit today, which will be the second unit he has received during his hospital course. Patient's airway resistance noted to be 3.3 cm/L/s, static lung compliance shown to be 45 mL/cm H2O and dynamic compliance 33 mL/cm H2O. 12/11/23 - Patient seen at the bedside, remaining in the ICU, with a tracheotomy tube and mechanically ventilated while receiving dialysis. Patient remains on assist-control rate of 20, FiO2 30%, PEEP of 5 and has an oxygen saturation of 97%. Patient is on day 29 of the hospital stay (admitted 11/11), day 17 of his current ICU stay (readmitted to the ICU 11/24) and day 17 of his current period of time on the ventilator (placed 11/24). ABG today showed pO2 115, pCO2 38, pH 7.44 continuing to show evidence of a mild metabolic alkalosis. Chest x-ray today showed stable disease. Patient had tracheotomy placed yesterday afternoon (12/09) without any complications. Patient has had 3 consecutive days of attempting spontaneous breathing trials in an effort to wean the patient off the ventilator, all of which failed to this point. Beginning today the patient's antibiotics (meropenem) will be discontinued and we will begin weaning his propofol down from 25 mcg/kg/min. As the patient is weaned off of the propofol, 0.5 Dilaudid and 1 mg IV Ativan to be used every 6 hours as needed. Patient is continuing to receive normal saline 20 cc/h, and has a total of 200 mL of serosanguineous fluid from his RAYA drain. TPN to continue at a rate of 120 mL/h additionally tube feeds, which had been held due to the patient receiving s traight catheter yesterday, will be restarted today with an ultimate goal being to receive enteral nutrition at a rate of 80 mL/h. TPN to continue until able to increase the enteral nutrition to at least 50 mL/h, as per the dietitian's recommendation. Will be exploring the possibility of the patient being moved to select specialty. 12/12/23 - Patient seen at the bedside this morning, in ICU room 253, while receiving and EEG, no significant events overnight. Patient remains with tracheotomy and is mechanically ventilated on assist control with a rate of 20, tidal volume 500, FiO2 30%, PEEP of 5 with an oxygen saturation of 98%. Patient is on day 30 of the hospital stay (admitted 11/11), day 18 of his current ICU stay (readmitted to the ICU 11/24) and day 18 of his current period of time with mechanical ventilation (placed in 11/24). ABG today showed pO2 92, pCO2 36, pH is 7.49 continue to show signs of a combined respiratory and metabolic alkalosis. WBC 17.9, Hgb 7.4, Hct 22.6, PLT 151; sodium 133, potassium 4.0, HCO3 27, BUN 88, creatinine 2.96. Chest x-ray done today continuing to show patchy infiltrate throughout the right lung with layering effusion. Patient is continuing to receive normal saline 20 cc/h, continues to receive Dilaudid 0.5 mg IV push every 6 hours as needed, as well as Ativan 1 mg IV every 6 hours as needed. Patient is no longer maintained on propofol. TPN continues at a rate of 120 mm/h and EN vital AF at 30 mL/h with a goal of 40 mL/h. Once goal is reached, TPN can be discontinued and patient will be switched over to Nepro 50 mL/h. Following the patient having 3 consecutive days of attending spontaneous breathing trials and effort to wean, we will begin trying the patient with CPAP and pressure support in effort to wean, today's trial the patient will be placed on PS 5 and PEEP of 5 for 25-45 minutes, or as he is able to tolerate it. Disc ussed with the patient's the importance of continuing to wean the patient's with trials, in an effort to build up some of the strength in his lungs to better be able to tolerate breathing on his own. Will continue to evaluate for possible placement in a long-term acute care facility. 12/13/23 - Patient seen at the bedside this morning, in ICU room 253, with no significant events overnight noted. Patient remains with tracheotomy and is mechanically ventilated on assist control with a rate of 20, tidal volume 500, FiO2 30%, PEEP of 5 with an oxygen saturation of 98%. Patient is on day 30 one of the hospital stay (admitted to 11/11), day 19 of his current ICU stay (readmitted to the ICU 11/24) and day 19 of his current period of time with mechanical ventilation (placed 11/24). ABG today showed pO2 87, pCO2 36, pH 7.48 continue to show signs of a combined respiratory metabolic alkalosis. WBC 17.3, Hgb 8.0, Hct 25.3, PLT 191; sodium 136, potassium 4.1, BUN 116, creatinine 3.17. This x-ray done today continues to show stable disease. Patient had an EEG completed yesterday (12/11) which showed an abnormal EEG, study being limited because of diffuse myogenic artifact. Background slowing suggestive of severe encephalopathy. Otherwise no appreciable epileptiform discharges, focal slowing, or seizure noted during the exam. Patient continues to receive Dilaudid 0.5 mg IV push every 6 hours as needed, as well as Ativan 1 mg IV every 6 hours as needed. Patient's TPN has been stopped, he is not receiving Nepro at 50 mL/h, which is goal. Patient Solu-Medrol has been discontinued, patient now receiving 30 mg prednisone daily. Patient's trial yesterday with CPAP and pressure support with the patient was sent PS of 5 and PEEP of 5, patient tolerated 40 minutes well it was noted that his respiratory rate increased and his minute ventilation also increased during this time. Will continue with another weaning effort today and continue to reassess how the patient tolerates. He will be receiving hemodialysis today, with the plan to hold over the weekend and then reassess Saturday per nephrology. Additionally IV Lasix has been discontinued on this patient, nephrology did state that he may need to resume receiving the Lasix if the urine output tapers. Progress note dated December 14, 2023. The patient is seen today in room 253. The patient remains on the mechanical v entilator. His settings include volume assist-control, rate 20, tidal volume 500, FiO2 30%, PEEP of 5. Blood gases show pO2 of 76, pCO2 of 36, pH of 7.47. The patient is getting saline at 10 cc an hour, and Nepro at 50 cc an hour which is goal. The patient will go back on pressor support of 5 and CPAP of 5 today. Yesterday, he spent 2-1/2 hours on pressure support. The patient did have a tem perature last night. He discussed some purulent drainage at the wound site. I have asked surgeon to come back and see the patient. In addition, the nurse will get blood, urine, sputum, and wound cultures going. He is not on any antibiotics. We will check a procalcitonin level. White count of 16.7, hemoglobin 8.1, hematocrit 24.5, platelet count is normal. Sodium 135, potassium 3.9, chlorides 103, CO2 24, BUN 106, creatinine 3.04. Calcium is 7.1. Magnesium is 2.0. Urine is yellow, with 1+ protein, 6 WBCs, and rare bacteria. Chest x-ray shows a stable chest x-ray, which is largely unchanged. Progress note dated December 15, 2023. 73-year-old male seen again in room 253. The patient remains on mechanical ventilator. Blood gases show pO2 of 78, pCO2 of 36, pH of 7.47. The patient is getting saline at KVO, and Nepro at 50 cc an hour which is goal. The patient did a spontaneous breathing trial yesterday, and went about 6 hours on PSV 5, CPAP of 5. The patient's procalcitonin level was elevated at 1.92. We added back Zosyn. Yesterday we did sputum, blood, urine, and wound cultures. The patient will have another spontaneous breathing trial today. Current labs include a white count 16.3, hemoglobin 7.5, hematocrit 22.6, and a normal platelet count. Sodium 138, potassium 3.5, chlorides 105, CO2 24, BUN 125, and creatinine 3.22. Glucose is 220. Calcium is 6.9. Chest x-ray shows a right- sided pleural effusion, and some similar changes, to the previous x-ray. This is a 73-year-old white male with history of chronic abdominal pain for the last 8 months has been treated with Protonix 40 mg daily for the last 3 months with no improvement. Patient had a 22 pound weight loss in the last [address] of the abdomen and pelvis 3 weeks ago showed thickening of the antral wall with pathological adenopathy posterior to the stomach suspicious of neoplasm. Today the patient underwent elective upper endoscopy to evaluate further, patient received IV sedation by anesthesia endoscope was inserted into the mouth, esophagus was intubated without any difficulty there was evidence of large amount of liquid and solid food noted in the stomach suggestive of gastric out let obstruction. Scope could not be advanced through the pylorus, however in the prepyloric area there was a large superficial ulceration identified with multiple biopsies were done from this area. The body cardia and fundus could not adequately visualize because of large amount of retained food in the stomach. Scope was withdrawn back to the stomach and upon careful examination the mucosa of the antrum body and cardia as well as the fundus appeared normal. Procedure was being performed and biopsies were done patient threw up and subsequently became hypoxic there was clearly evidence of witnessed aspiration anesthesia intubated the patient, procedure was terminated, and the patient was transferred to the ICU, this consult was initiated. Patient is now on assist- control rate of 20 tidal volume 500 FiO2 70% PEEP of 10 ABG is pending, earlier ABG showed profound hypoxia patient is on propofol at 50 mcg/kg/min, next ABG is pending. Chest x-ray showed chronic changes without evidence of acute pulmonary disease. 12/20/2023, the patient is being seen for a follow-up. More alert and awake compared to yesterday. He is able to move his fingers and toes on today's evaluation. Following commands. Nevertheless, his J tube has been clogged and was unable to utilize the tube that has been some leaks around the tube. No abdominal distention. No nausea or emesis. Hemodynamically stable. Will undergo hemodialysis today. He remains on pressure control mode of mechanical ventilation at rate of 16, pressure of 10, +5 PEEP with an FiO2 of 30%. Chest x-ray from today is essentially unchanged with a stable cavity in his right upper lobe. White cell count of 15.7, hemoglobin 7.2, platelet count is 203, blood gas showed a pH of 7.49 with a pCO2 of 33 and pO2 of 73. BUN is 88 with a creatinine 1.89 and sodium is at 141 with a potassium level of 4.1. He is producing adequate amount of urine output. Fluid balance has been -900 cc over the past 24 hours. Normotensive. Remains on a combination of Zosyn and daptomycin. Remains on Levemir insulin 24 units daily. This is currently on hold as the patient has not been able to obtain enteral feeding. Wound VAC still in place. 12/21/2023, the patient remains on the mechanical ventilator. Overnight, the patient experienced discomfort in his abdomen and he was restless. Based on that, the patient was placed on a higher dose of Precedex which is currently running at 0.6 mcg/kg/h. The patient was also asynchronous with the mechanical ventilator and based on that, the patient was switched to an AC mode and currently is at a rate of 16, tidal volume of 400, FiO2 of 30% with a PEEP of 5. The patient is adequately sedated for now. Chest x-ray remains unchanged. Tracheostomy tube in place and the patient is having increased amount of respiratory secretions. J tube needs to be replaced today and this will be done by his general surgery as the tube remains clogged. Urine output is low order of 30 cc an hour. Afebrile. Remains on Zosyn and daptomycin. White cell count is 16.9, hemoglobin 7.4 and a platelet count of 280. Blood gas from today showed a pH of 7.46 with a pCO2 of 36 and pO2 of 82. Sodium levels of 144, BUN is 19 with a creatinine of 2.2 and a serum bicarb is at 23. The abdominal wound remains unchanged. RAYA drain is serosanguineous. 12/22/2023, patient remains on Precedex at 0.4 mcg/kg/min. Arousable. Communicates. Profoundly weak. Remains on the mechanical ventilator with a rig ht lung abscess. SIMV mode mode rate of 16, tidal volume of 400, FiO2 30% with a PEEP of 5, with a pressure support of 8. Blood gas showed a pH of 7.46 with a pCO2 of 32 and a pO2 of 82. Chest x-ray remains unchanged with a right upper lobe cavitating lesion/opacity and a suspected lung abscess. This is rated Pseudomonas and the patient remains on IV Zosyn. He remains on daptomycin. Urine output is in order of 50 cc an hour.. The J-tube was unplugged yesterday. Nevertheless, the tube itself is malfunctioning and there is drainage around the tube requiring dressing changes the dressings being soakedConstantly. The patient's white cell count is 12.3 with a hemoglobin 7.7. Sodium is at 149, BUN 91 with a creatinine of 2.3. Bicarb is at 20. Undergoing hemodialysis periodically. Last hemodialysis was on 12/21/2023. Currently NPO. Abdominal wound is clean and the patient has a wound VAC in place. RAYA drain output is serosanguineous. Patient was seen today on 12/23/2023, remains in the ICU, intubated and mechanically ventilated. Patient is on IMV with pressure support/IMV 16, pressure support of 8, tidal volume 400, PEEP of 5. Patient seems to be doing well with that kind of mode of mechanical ventilation, ABG showed a pO2 of 76 pCO2 28 pH of 7.50. I changed his rate from 16-8 kept him otherwise on the same ventilator settings. Plan to gradually go down on the IMV rate until we can get him on pressure support of 8 and CPAP. Patient is requiring Precedex at 0.4 m cg/kg/h, he is on D5W at 50 cc/h. Remains on antibiotics in the form of daptomycin and Zosyn, chest x-ray continues to show bilateral airspace disease and right upper lobe lung abscess. Continues to have a bit of a leak from his J-tube being addressed by surgery has a wound VAC, and he had a RAYA drain. Mentation arce the patient is a bit more appropriate, opens his eyes, follows very simple instructions, seems to comprehend. Patient has a left brachial PICC line, he also has a left groin hemodialysis catheter. WBC count is 10.1 hemoglobin is 7 sodium is 149 potassium 4 chloride is 121 BUN is 86 creatinine 2.31. Blood sugar is 173. Remains on enteral feeding via J-tube, a bit of a leak is noted, and surgery is to address this. Sputum cultures have grown Klebsiella and Pseudomonas and remains on proper antibiotics Patient was seen and examined today on 12/24/2023, patient remains in the ICU, and mechanically ventilated. On IMV mode of 8 pressure support of 8 tidal volume 400 FiO2 30% and PEEP of 5 ABG showed a pO2 of 81 pCO2 32 pH of 7.45. Patient remains on daptomycin and Zosyn, remains on Precedex at 0.4 mcg/kg/h intermittently receiving Dilaudid for pain. Feeding arce is presently on hold, patient had a leak around the jejunostomy tube, surgery is recommending a trick le feed or TPN if could not use the J-tube. Patient is arousable follows simple instructions, and today I had a chance to get rid of the IMV mode, and I am recommending a pressure support of 8 and CPAP. For the last few hours the patient has been tolerating this mode of mechanical ventilation, however he is not quite ready to go to [facility] at this point. Chest x-ray continues to show significant opacity in the right upper lobe and airspace disease in the right lower lobe. Previously patient had a CT of the chest showing right upper lobe abscess. Again he remains on Zosyn and daptomycin.Labs today showed WBC count of 10.6 hemoglobin 7.8 sodium is 147, patient is now on D5W at 100 cc an hour his bicarb is 19 BUN 74 creatinine 2.08, gradually improving, his last hemodialysis was on the , nephrology is considering removing his dialysis catheter in the left groin and I believe that is appropriate patient was seen and examined today on 12/25/2023, remains in the ICU, intubated and mechanically ventilated. Patient had to be placed back on assist-control mode of mechanical ventilation yesterday, mostly because he developed significant agitation and restlessness, and ongoing persistent cough with some air leak from the cough of that tracheostomy. Patient had to be sedated and he was placed on propofol and he remains on propofol at 50 mcg/kg/min. Maximal dose of Precedex yesterday could not calm him down, hence we had to transition him from pressure support/CPAP mode of mechanical ventilation to assist-control mode of mechanical ventilation and fully sedated him with propofol replacing Precedex. Today the patient is sedated, he is on assist-control rate of 16 ti sierra volume 400 FiO2 30% PEEP of 5 ABG showed a pO2 of 98 pCO2 30 pH of 7.45 chest x-ray is basically the same showing significant airspace disease in the right upper lobe and right lower lobe. Remains on daptomycin and Zosyn. His IV fluid was transitioned to D5 4 5 from D5W sodium today is 141. His urine output is about 40 to 50 cc/h, renal profile is improving with steady trending of creatinine down. Patient continues to have leakage around the jejunostomy tube. Patient is being followed by surgery no specific recommendation made except to continue the same and except the leak as it isLabs today showed WBC count of 11.5 hemoglobin 8.2 basic metabolic profile is normal BUN is 60 creatinine down to 1.81 Patient seen today on 12/26/2023, remains in the ICU intubated mechanically ventilated sedated patient is on assist-control rate of 16 tidal volume 400 FiO2 30% PEEP of 5 ABG showed a pO2 of 82 pCO2 34 pH of 7.43. Patient is now on TPN at 30 cc/h propofol at 50 mcg/kg/min hemoglobin is down to 6.8 today and he is receiving a unit of packed RBCs. His IV fluids at 50 cc/h in the form of 0.9 normal saline. He was last night on a small dose of norepinephrine at 0.01 mcg/kg/min and is presently on hold. Antibiotics arce patient is on Zosyn daptomycin and Eraxis. Chest x-ray continues to show significant airspace disease involving the right upper lobe and right lower lobe not much of a change noted on the chest x-ray. Clinically the patient is about the same, today I plan to discontinue propofol, arrange for the patient to go on Precedex, and assess mental status off sedation. If tolerated, may transition the patient again to pressure support and CPAP type of mechanical ventilation, but he is not ready to go to that transition yet. WBC count is 11.6 hemoglobin 6.8. ABG today showed a pO2 of 82 pCO2 34 pH of 7.43 potassium is 3.3 being addressed accordingly BUN is 53 creatinine 1.84 Patient was evaluated today on 12/27/2023, remains in the ICU intubated and mechanically ventilated. Patient is presently on IMV mode of mechanical ventilation with pressure support rate of 16 pressure support 14 tidal volume 400 FiO2 30% and PEEP of 5 ABG showed a pO2 of 99 pCO2 31 pH of 7.44. Intermittently the patient has been experiencing episodes of extreme agitation and restlessness he is on Precedex at 0.5 mcg/kg/h. Patient is on IV fluid 0.9 normal saline at 50 cc/h and is also receiving TPN. Remains on Eraxis daptomycin and Zosyn patient is intermittently requiring Dilaudid, Ativan does not seem to help his agitation and restlessness. But Dilaudid does hence I would recommend 0.5 mg every 2-3 hours as needed for agitation. Patient has good urine output roughly about 100 cc/h. Continues to have leakage around the jejunostomy tube, and patient is undergoing the J-tube exchange today. Family is at bedside, seems to be quite anxious about his overall condition, and I explained to the that we are doing the best we can considering his critical illness situation and critical illness polyneuropathy. Patient is profoundly weak, and weaning the patient from mechanical ventilation is almost impossible. At least not at this point yet WBC count is 10.9 hemoglobin is 8.1 basic metabolic profile is normal BUN is 46 creatinine 1.90 patient has been off hemodialysis since the . Chest x-ray continues to show stable findings with right upper lobe opacity and right lower lobe opacity and possibly a small right-sided pleural effusion Was evaluated today on 12/28/2023, patient remains in the ICU, intubated and mechanically ventilated, on IMV mode of mechanical ventilation rate set at 16 he is on pressure support of 14 tidal volume 400 FiO2 30% and PEEP of 5 ABG showed a pO2 of 113 pCO2 31 pH of 7.43. No major events overnight, patient is still requiring Precedex at 0.7 mcg/kg/h. He is on TPN as we could not use his jejunostomy tube, no jejunostomy tube was done yesterday, IV fluid is 0.9 at 50 cc/h remains on TPN at 65 cc/h patient is on Eraxis daptomycin and Zosyn. Chest x-ray is showing improvement in his right upper lobe airspace disease/lung abscess and there is a slight improvement in his right lower lobe opacity. Kathryn ent is arousable but does not follow any instructions, patient gets agitated easily if aroused and he started gagging on the tracheostomy tube. Family is at bedside, again updated on his condition. WBC count is 7.6 hemoglobin 7.9. Basic metabolic profile is normal BUN is 45 creatinine down to 1.51 patient has not had any dialysis since 12/17, his renal functioning and urine output continues to improve, hence I am strongly recommending removing his dialysis catheter Patient was seen on 12/29/2023, remains intubated and mechanically ventilated, in the ICU, on IMV of 16 tidal volume 400 FiO2 30% PEEP of 5 ABG showed a pO2 of 105 pCO2 31 pH of 7.45. Remains on Precedex at 0.8 mcg/kg/h, remains on TPN at 65 cc/h IV fluid 0.45 at 50 mL/h remains on multiple antibiotics and antifungal including Eraxis daptomycin and Zosyn. His hemodialysis catheter has been removed, urine output has been excellent renal functioning is improving chest x- ray is showing improvement in his right upper lobe airspace disease/pulmonary abscess. Right lower lobe seems about the same with chronic opacity and possibly some small right-sided pleural effusion. Family is at bedside, patient is arousable but does not follow any instructions. Gets extremely restless and agitated easily hence patient is receiving Dilaudid which seems to be working much better for this patient than benzodiazepines. And we are trying to avoid Ativan, trying to avoid any propofol as much as possible. I believe his drainage from the jejunostomy tube is becoming less and less, hence we could start considering early next week arrangement to possibly transfer the patient to a select care specialty. In the meantime I am recommending that we go down on the IMV rate by 2 every 2 hours the goal is pressure support of 14 and IMV of 8. Progress note dated December 30, 2023. This is a 73-year-old male who is now been in the hospital for 48 days. The patient was admitted back on November 11. Currently, he is seen in the intensive care unit, room 253. The patient is currently on synchronized IMV mode, rate of 8, pressure support of 14, PEEP of 5, FiO2 30%, and a backup tidal volume of 400 cc. Blood gases showed a pO2 of 87, pCO2 of 31, and a pH of 7.42. The patient will be switched back to the volume assist-control mode, as he is not ready to be weaned. His minute volume is nearly 18 L/min. He is breathing at a rate of about 40 times per minute. He currently is on Precedex 0.8 mics per kilogram per minute, TPN at 90 cc an hour, and half-normal saline at 50 cc an hour. The patient continues on Zerbaxa, Eraxis, and daptomycin. White count 11.5, hemoglobin 8.1, hematocrit 25, platelet count of 78,000. Sodium 142, potassium 4.2, chlorides 119, CO2 20, BUN 42, and creatinine 1.22. Glucose is 178. Albumin is 1.9. Sputum from December 24 shows evidence of Citrobacter freundii and Pseudomonas aeruginosa. Blood cultures from the same day were positive for Staphylococcus. Chest x-ray shows extensive pleural-parenchymal opacities, in both lungs, and the chest x-ray is largely unchanged from the pre vious days x-ray. Progress note dated December 31, 2023. 73-year-old male now here in the hospital for 49 days. The patient was admitted way back on November 11. He is seen today in room 253. Family members are at the bedside. The patient currently is on volume assist-control, rate 32, tidal volume 400, FiO2 30%, PEEP of 5. Blood gases show pO2 of 94, pCO2 of 35, pH is 7.40. Unfortunately, the patient is not synchronous with the ventilator, and so we switched to pressure regulated volume control or VC plus. We set an inspiratory time at 0.8 seconds, and the targeted tidal volume of 450 cc. The patient is on TPN at 70 cc an hour, saline at KVO, propofol at 40 mcg/kg/min. The patient continues on Eraxis, daptomycin, and Zerbaxa. Current labs include a white count 12.8, hemoglobin 7.3, hematocrit 22.4, and a platelet count of 67,000. Sodium 140, potassium 3.6, chlorides 119, CO2 20, BUN 43, creatinine 1.15. Glucose is 223. Calcium is 6.8. Today's chest x-ray is largely unc hanged. Progress note dated January 01, 2024. 73-year-old male seen again in room 253. The patient has not been in the hospital for 50 days. The patient continues on the mechanical ventilator. He is on pressure regulated volume control, or VC plus. His target tidal volume is 450 cc and his inspiratory time RTI is 0.8 seconds. His respiratory rate is 32. PEEP is 5, and FiO2 is 30%. Blood gases show pO2 of 98, pCO2 of 34, and a pH of 7.40. The patient continues on propofol at 15 mcg/kg/min, and TPN at 90 cc an hour. The patient also continues on Zerbaxa, daptomycin, and Eraxis. White count is 12.1, hemoglobin 7, hematocrit 22.0, and platelet count 69,000. Sodium 141, potassium 4.3, chlorides 120, CO2 19, BUN 44, creatinine 1.11. Calcium is 7. Chest x-ray shows a right-sided pleural effusion, with adjacent atelectasis and/or consolidation. There is a small left-sided pleural effusion as well. Objective - Vital Signs Vital signs: Vital Signs Temp 97.7 F 01/01/24 08:00 Pulse 89 01/01/24 09:00 Resp 14 01/01/24 09:00 BP 103/71 12/31/23 02:00 Pulse Ox 99 01/01/24 09:00 FiO2 30 01/01/24 09:00 Intake & Output 12/31/23 01/01/24 01/01/24 18:59 06:59 18:59 Intake Total 3075.904 1534.755 45.72 Output Total 1880 1055 90 Balance 1195.904 479.755 -44.28 Weight 103.1 kg Intake: IV 1843 1336 0.9 153 156 Anidulafungin 100 mg In 100 Sodium Chloride 0.9% 100 ml @ 84 mls/hr IVPB DAILY [facility] Rx#:[id number] Ceftolozane/Tazobactam 3 100 gm In Sodium Chloride 0.9 % 100 ml @ 100 mls/hr IV Q8H [facility] Rx#:[id number] DAPTOmycin 600 mg In 50 Sodium Chloride 0.9% 50 ml @ 100 mls/hr IVPB Q24H [facility] Rx#:[id number] Fat Emulsion 20% 250 ml 250 In Empty Bag 1 bag @ 21 mls/hr IV DAILY@1000 [facility] Rx#:[id number] Potassium Chloride 10 meq 200 100 In Water For Injection 1 100ml.bag @ 100 mls/hr IVPB Q1H [facility] Rx#: [id number] TPN 990 1080 Intake, IV Titration 1142.904 198.755 45.72 Amount Mvi, Adult No.4 with Vit 1039.5 K 10 ml Trace (Conc-1Ml/ Dose) 1 ml Sodium Acetate 18 meq Potassium Acetate 28 meq Magnesium Sulfate gm 1 gm Calcium Gluconate 1 gm Potassium Phosphate 9 mmol In Amino Acid 5%-D15w 1,000 ml @ 90 mls/hr IV .BY DURATION [facility] Rx#:[id number] propofoL 1,000 mg In 103.404 198.755 45.72 Empty Bag 1 bag @ 15 MCG/ KG/MIN 9.144 mls/hr IV . [id number] [facility] Rx#:[id number] TPN/PPN 90 TPN 90 Output: Gastric Drainage 400 Drainage 180 90 Right Abdomen 180 90 Urine 1300 1055 Other: Voiding Method Indwelling Catheter Indwelling Catheter # Bowel Movements 0 ABP, PAP, CO, CI - Last Documented Arterial Blood Pressure 148/79 - Exam No acute distress, somewhat lethargic, in no acute distress, with a midline tracheostomy tube. HEENT examination is grossly unremarkable. Neck supple. Full range of motion. No adenopathy thyromegaly or neck vein distention. Midline tracheostomy tube noted. Cardiovascular examination reveals regular rhythm rate. S1-S2 normal. No S3 or S4. No discernible murmur noted. Lungs reveal mild scattered rhonchi. No wheezes or crackles. Breath sounds equal. Abdomen soft, without bowel sounds. Midline incision, there is for the most part intact, although there is some purulence noted, with some minimal dehiscence Extremities are intact. No cyanosis clubbing or edema. Skin is without rash or lesion. Neurologic examination is difficult to assess. - Labs CBC & Chem 7: 01/01/24 04:20 01/01/24 04:20 Labs: Abnormal Lab Results - Last 24 Hours (Table) 12/31/23 12/31/23 12/31/23 Range/Units 11:55 18:01 23:19 WBC (3.8-10.6) k/uL RBC (4.30-5.90) m/uL Hgb (13.0-17.5) gm/dL Hct (39.0-53.0) % RDW (11.5-15.5) % Plt Count (150-450) k/uL Neutrophils # (1.3-7.7) k/uL ABG pCO2 (35-45) mmHg ABG O2 Saturation (94-97) % Hemoglobin (13.0-17.5) gm/dL Chloride (98-107) mmol/L Carbon Dioxide (22-30) mmol/L BUN (9-20) mg/dL Glucose (74-99) mg/dL POC Glucose (mg/dL) 184 H 201 H 203 H (70-110) mg/dL Calcium (8.4-10.2) mg/dL Iron (65-175) UG/DL TIBC (228-460) UG/DL % Saturation (15.00-50.00) Transferrin (204.0-354.0) mg/dL Ferritin (22.0-322.0) ng/mL 01/01/24 01/01/24 01/01/24 Range/Units 04:20 04:20 04:20 WBC 12.1 H (3.8-10.6) k/uL RBC 2.39 L (4.30-5.90) m/uL Hgb 7.0 L (13.0-17.5) gm/dL Hct 22.0 L (39.0-53.0) % RDW 18.5 H (11.5-15.5) % Plt Count 69 L (150-450) k/uL Neutrophils # 8.9 H (1.3-7.7) k/uL ABG pCO2 (35-45) mmHg ABG O2 Saturation (94-97) % Hemoglobin (13.0-17.5) gm/dL Chloride 120 H (98-107) mmol/L Carbon Dioxide 19 L (22-30) mmol/L BUN 44 H (9-20) mg/dL Glucose 140 H (74-99) mg/dL POC Glucose (mg/dL) (70-110) mg/dL Calcium 7.0 L (8.4-10.2) mg/dL Iron 13 L (65-175) UG/DL TIBC 105 L (228-460) UG/DL % Saturation 12.38 L (15.00-50.00) Transferrin 75.3 L (204.0-354.0) mg/dL Ferritin 642.0 H (22.0-322.0) ng/mL 01/01/24 Range/Units 04:26 WBC (3.8-10.6) k/uL RBC (4.30-5.90) m/uL Hgb (13.0-17.5) gm/dL Hct (39.0-53.0) % RDW (11.5-15.5) % Plt Count (150-450) k/uL Neutrophils # (1.3-7.7) k/uL ABG pCO2 34 L (35-45) mmHg ABG O2 Saturation 98.5 H (94-97) % Hemoglobin 7.0 L* (13.0-17.5) gm/dL Chloride (98-107) mmol/L Carbon Dioxide (22-30) mmol/L BUN (9-20) mg/dL Glucose (74-99) mg/dL POC Glucose (mg/dL) (70-110) mg/dL Calcium (8.4-10.2) mg/dL Iron (65-175) UG/DL TIBC (228-460) UG/DL % Saturation (15.00-50.00) Transferrin (204.0-354.0) mg/dL Ferritin (22.0-322.0) ng/mL Assessment and Plan Assessment: Acute hypoxemic respiratory failure with failure to wean from mechanical ventilation, S/P tracheostomy on December 10, 2023. Respiratory failure, requiring reintubation, on November 25, 2023. Acute hypoxic respiratory failure requiring intubation/mechanical ventilation secondary to aspiration during EGD on 11/12/2023. Patient was extubated on 11/14/2023. S/P J-tube placement 11/16/2023, which continues to leak. Septic shock. Acute kidney injury secondary to sepsis, and ATN. Acute bowel obstruction, diagnosed via CT scan, November 24, 2023. Acute aspiration pneumonia. Acute aspiration during upper endoscopy most likely secondary to gastric outlet obstruction secondary to non-Hodgkin's lymphoma. Chronic abdominal pain, secondary to B-cell lymphoma. Unexplained weight loss most likely secondary non-Hodgkin's lymphoma involving the stomach. Paroxysmal atrial fibrillation. Chronic anemia. Plan: Plan dated November 21, 2023. The patient is seen today in room 517. The patient is on 3 L of oxygen. He continues on Zosyn. Continues on tube feeds. He had a CT scan of the abdomen and pelvis. His respiratory status is improved. We will continue to follow. Prognosis is guarded. Labs, x-rays, medications are reviewed. The patient is apparently scheduled for an outpatient PET scan. Plan dated November 22, 2023. The patient appears very stable. His is in the room with him. Labs, x- rays, and medications are reviewed. The patient continues on Zosyn. Resting room air saturation was 89%. Chest CT, revealed bilateral patchy and basilar infiltrates. We will continue to follow make recommendations along the way. Prognosis is guarded. The patient was diagnosed with a gastric outlet obstruction, secondary to non-Hodgkin's lymphoma. Plan dated November 23, 2023. The patient is seen today in room 517. He is resting comfortably. He continues on saline at 10 cc an hour. He is getting tube feedings with Pivot at 20 cc an hour. He has been weaned down to 2 L of oxygen. He continues on Zosyn. Labs, x-rays, and all medications are reviewed. Prognosis is guarded. We will continue to follow. Plan dated November 24, 2023. The patient will be admitted to the intensive care unit. I believe he deserves to be an ICU patient. I did speak to the surgeon. Labs, x-rays, and medications are reviewed. No additional recommendations are made. Prognosis is guarded. The patient has now been in the hospital for 12 days. We will continue to follow. He continues on Zosyn. Plan dated December 14, 2023. The patient is seen today in room 253. Currently, the patient is on the ventilator. He will have another PSV/CPAP trial. Apparently yesterday, he went for about 2-1/2 hours before he required to be placed back on the ventilator. The patient is getting saline at 10 cc an hour, and Nepro tube feedings at 50 cc an hour, which is goal. The patient had a fever, and will be recultured. In addition, the midline incision in the abdomen, shows some evidence of purulence, and will have a surgeon, take a look at that. Currently, the patient is not on any antibiotics. We will recheck a procalcitonin level. One of the family members was in the room, and was updated. Plan dated December 15, 2023. The patient actually spent about 6 hours on pressor support yesterday. The patient will have another spontaneous breathing trial today. The patient remains off of all sedation. He is getting Ativan and Dilaudid as needed. He is receiving tube feedings at goal. Labs, x-rays, and medications are reviewed. The repeat procalcitonin level was elevated at 1.92. We added Zosyn empirically. He had pancultures done yesterday. Labs, x-rays, and all medicati ons are reviewed. Prognosis is guarded. An update was given to the daughter and to the right. Dictation was produced using [employer] dictation software. Please excuse any grammatical, word or spelling errors. Plan dated December 30, 2023. The patient is seen today in room 253. The patient has now been in the hospital for 48 days. He was admitted way back on November 11. The patient currently is not ready to be weaned, given his high respiratory rate, and high minute volume. The patient is converted back to volume assist-control. In addition, the patient continues on Zerbaxa, Eraxis, and daptomycin, because of recent infections, including Pseudomonas, and Citrobacter, as well as Staphylococcus. Labs, x-rays, and medications are reviewed. The patient will continue on a small dose of propofol, Dilaudid as needed, and Ativan. Dexmedetomidine which is currently running was to be discontinued. Additional recommendations and suggestions are forthcoming. Prognosis is poor in my opinion. The patient remains a full code. The remains hopeful. Dictation was produced using [employer] software. Please excuse any grammatical, word or spelling errors. Plan dated December 31, 2023. The patient is seen today in room 253. Family members are at the bedside. After observing the patient on the ventilator, for period of time, it was clear to me, the patient was not synchronous with the ventilator. For that reason, we switched from volume assist-control, to pressure regulated volume control or VC plus. The patient had a inspiratory time of 0.8 seconds, and a targeted tidal volume of 450 cc. Everything else stayed the same. After switching, the patient's respiratory rate came down, as did his minute volume. He appeared much more comfortable. Labs, x-rays, medications are reviewed. The patient continues on Zerbaxa, Eraxis, and daptomycin. We will continue to follow. Prognosis is guarded. No additional recommendations are made. The patient is on propofol at 40 mcg/kg/min. I have asked the nurses to use both Ativan every 6 hours, and Dilaudid every 2 hours as needed, to see if we can get him on a small dose of propofol so that we can send the patient to long-term acute care facility. Prognosis is guarded. Dictation was produced using [employer] software. Please excuse any grammatical, word or spelling errors. Plan dated January 01, 2024. The patient is seen today in room 253. I had a long conversation with the patient's family yesterday. It was encouraged, by the primary service, Dr. Rowe. Dr. Rowe also talked to the family about CODE STATUS, and the possibility of a palliative care consult or hospice consultation. The patient is chronically and critically ill, but stable. The patient remains on the mechanical ventilator, and is not able to be weaned at this time. Previous attempts at weaning, has caused significant increases in respiratory rate, significant increases in minute volume, and disruptions of his vital signs. The patient continues on Zerbaxa, daptomycin, and Eraxis. The patient is on a relatively smaller dose of propofol at 15 mcg/kg/min. I have encouraged the nurse to wean that down even further. In addition to propofol, the patient is receiving Ativan, and Dilaudid as needed. Labs, x-rays, medications are reviewed. The patient could be considered for possible discharge to long-term acute care facility or select specialty. Time with Patient: Greater than 30
[2024-01-01 11:51] LABS: Glucose,Whole Blood 181 mg/dL (70-110)
--- NOTE | 2024-01-01 11:59 | P.PN ---
Subjective Patient is seen for follow-up for acute kidney injury. Nonoliguric. Started on hemodialysis November 29, 2023. Currently off of dialysis as renal function has recovered. Last dialysis on 12/18/2023 Renal function continues to improve. Tube feeds currently held. Receiving TPN. FiO2 at 30%. is present at bedside. Objective - Vital Signs Vital signs: Vital Signs Temp 97.7 F 01/01/24 08:00 Pulse 98 01/01/24 11:00 Resp 32 H 01/01/24 11:00 BP 103/71 12/31/23 02:00 Pulse Ox 99 01/01/24 11:00 FiO2 30 01/01/24 11:00 Intake & Output 12/31/23 01/01/24 01/01/24 18:59 06:59 18:59 Intake Total 3075.904 1534.755 487.72 Output Total 1880 1055 570 Balance 1195.904 479.755 -82.28 Weight 103.1 kg Intake: IV 1843 1336 442 0.9 153 156 52 Anidulafungin 100 mg In 100 Sodium Chloride 0.9% 100 ml @ 84 mls/hr IVPB DAILY [facility] Rx#:[id number] Ceftolozane/Tazobactam 3 100 gm In Sodium Chloride 0.9 % 100 ml @ 100 mls/hr IV Q8H [facility] Rx#:[id number] DAPTOmycin 600 mg In 50 Sodium Chloride 0.9% 50 ml @ 100 mls/hr IVPB Q24H [facility] Rx#:[id number] Fat Emulsion 20% 250 ml 250 In Empty Bag 1 bag @ 21 mls/hr IV DAILY@1000 [facility] Rx#:[id number] Invasive Line 2 30 Potassium Chloride 10 meq 200 100 In Water For Injection 1 100ml.bag @ 100 mls/hr IVPB Q1H [facility] Rx#: [id number] TPN 990 1080 360 Intake, IV Titration 1142.904 198.755 45.72 Amount Mvi, Adult No.4 with Vit 1039.5 K 10 ml Trace (Conc-1Ml/ Dose) 1 ml Sodium Acetate 18 meq Potassium Acetate 28 meq Magnesium Sulfate gm 1 gm Calcium Gluconate 1 gm Potassium Phosphate 9 mmol In Amino Acid 5%-D15w 1,000 ml @ 90 mls/hr IV .BY DURATION [facility] Rx#:[id number] propofoL 1,000 mg In 103.404 198.755 45.72 Empty Bag 1 bag @ 15 MCG/ KG/MIN 9.144 mls/hr IV . [id number] [facility] Rx#:[id number] TPN/PPN 90 TPN 90 Output: Gastric Drainage 400 100 Drainage 180 160 Right Abdomen 180 160 Urine 1300 1055 310 Other: Voiding Method Indwelling Catheter Indwelling Catheter Indwelling Catheter # Bowel Movements 0 ABP, PAP, CO, CI - Last Documented Arterial Blood Pressure 168/76 - Exam patient is on the vent. He is awake Examination of the heart S1 and S2 Examination of the lungs decreased breath sounds at the bases Abdomen is soft Examination of lower extremities shows edema 1+ bilaterally in upper and lower extremities. - Labs CBC & Chem 7: 01/01/24 04:20 01/01/24 04:20 Labs: Abnormal Lab Results - Last 24 Hours (Table) 12/31/23 12/31/23 12/31/23 Range/Units 11:55 18:01 23:19 WBC (3.8-10.6) k/uL RBC (4.30-5.90) m/uL Hgb (13.0-17.5) gm/dL Hct (39.0-53.0) % RDW (11.5-15.5) % Plt Count (150-450) k/uL Neutrophils # (1.3-7.7) k/uL ABG pCO2 (35-45) mmHg ABG O2 Saturation (94-97) % Hemoglobin (13.0-17.5) gm/dL Chloride (98-107) mmol/L Carbon Dioxide (22-30) mmol/L BUN (9-20) mg/dL Glucose (74-99) mg/dL POC Glucose (mg/dL) 184 H 201 H 203 H (70-110) mg/dL Calcium (8.4-10.2) mg/dL Iron (65-175) UG/DL TIBC (228-460) UG/DL % Saturation (15.00-50.00) Transferrin (204.0-354.0) mg/dL Ferritin (22.0-322.0) ng/mL 01/01/24 01/01/24 01/01/24 Range/Units 04:20 04:20 04:20 WBC 12.1 H (3.8-10.6) k/uL RBC 2.39 L (4.30-5.90) m/uL Hgb 7.0 L (13.0-17.5) gm/dL Hct 22.0 L (39.0-53.0) % RDW 18.5 H (11.5-15.5) % Plt Count 69 L (150-450) k/uL Neutrophils # 8.9 H (1.3-7.7) k/uL ABG pCO2 (35-45) mmHg ABG O2 Saturation (94-97) % Hemoglobin (13.0-17.5) gm/dL Chloride 120 H (98-107) mmol/L Carbon Dioxide 19 L (22-30) mmol/L BUN 44 H (9-20) mg/dL Glucose 140 H (74-99) mg/dL POC Glucose (mg/dL) (70-110) mg/dL Calcium 7.0 L (8.4-10.2) mg/dL Iron 13 L (65-175) UG/DL TIBC 105 L (228-460) UG/DL % Saturation 12.38 L (15.00-50.00) Transferrin 75.3 L (204.0-354.0) mg/dL Ferritin 642.0 H (22.0-322.0) ng/mL 01/01/24 01/01/24 Range/Units 04:26 11:50 WBC (3.8-10.6) k/uL RBC (4.30-5.90) m/uL Hgb (13.0-17.5) gm/dL Hct (39.0-53.0) % RDW (11.5-15.5) % Plt Count (150-450) k/uL Neutrophils # (1.3-7.7) k/uL ABG pCO2 34 L (35-45) mmHg ABG O2 Saturation 98.5 H (94-97) % Hemoglobin 7.0 L* (13.0-17.5) gm/dL Chloride (98-107) mmol/L Carbon Dioxide (22-30) mmol/L BUN (9-20) mg/dL Glucose (74-99) mg/dL POC Glucose (mg/dL) 181 H (70-110) mg/dL Calcium (8.4-10.2) mg/dL Iron (65-175) UG/DL TIBC (228-460) UG/DL % Saturation (15.00-50.00) Transferrin (204.0-354.0) mg/dL Ferritin (22.0-322.0) ng/mL Assessment and Plan Assessment: 1. Acute kidney injury secondary to ATN secondary to septic shock. Creatinine 0.86 on admission and up to 5.38 dated November 29, 2023. nonoliguric. UA fairly benign. No hydronephrosis noted on imaging. Started hemodialysis on 11/29/2023 for worsening volume status and acute kidney injury. Renal function has improved and dialysis catheter was discontinued on 12/28/2023 2. Perforated small bowel status post exploratory laparotomy with abdominal washout, small bowel resection and J-tube replacement November 25, 2023. 3. A-fib with RVR. s/p amiodarone drip. 4. Recently diagnosed gastric B-cell lymphoma. 5. Septic shock. 6. Hypokalemia status post replacement. 7. Hypophosphatemia, being supplemented in TPN. 9. Hypernatremia, status post D5W and improved. Plan: continue with TPN. Repeat labs in a.m. and adjust TPN as needed.
--- NOTE | 2024-01-01 15:55 | P.PN ---
Progress Note - Text Progress Note Date: 01/01/24 Chief Complaint: Aspirated This is a 73-year-old patient, follows with Dr. Patricia Deal. Patient was seen this morning in the ICU. Patient's and daughter at the bedside. History obtained predominantly by the . Patient been having trouble with his stomach symptoms for close to 8 months. Patient underwent EGD by Dr. Sahara Cheng yesterday. Patient was found to have ulcerated around the antrum and obstruction to the pylorus. A lot of retained food was found. Patient aspirated. Had to be intubated and brought to the ICU. On a Levophed drip. FiO2 50 and a PEEP of 6. Patient had been losing weight lost about 25 pounds. Previously has a history of mitral valve prolapse. November 13: ICU. Patient remains on Precedex drip and propofol drip. Did not do well attempted extubation yesterday. Patient been off Levophed. NG tube to suction. Spoke to patient's and son at the bedside. Biopsy results awaited. Hemoglobin dropped to 6.9 this morning. Get a unit of blood. November 14: ICU. Up in a chair. Extubated yesterday. NG tube to suction. at the bedside. 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 Oncology was consulted. They have ordered a port. Results discussed with Dr. Sahara Cheng. General surgery was consulted for J-tube placement. Discussed with at the bedside. Patient getting IV fluids, IV Zosyn,. Patient has been on IV amiodarone for A-fib-back in sinus rhythm. Multiple PACs. Did receive unit of blood yesterday. Also IV ferric gluconate. November 15: ICU. Patient earlier today underwent jejunostomy tube placement and a port placement. Patient awake. Answering questions. NG tube to suction present. Updated patient's . Patient remains on IV amiodarone and IV Zosyn. November 16: ICU. Up in the chair. NG tube present but not to suction. Trickle feeding through the jejunostomy tube should be started today. Dietitian has been on board. IV Zosyn to continue. Patient's and his sister at the bedside. Discussed. Also spoke with Dr. Serna. Given patient has no other predisposing cardiac factors for the A-fib except acute illness. His LV function is normal. Left atrium is normal. He has already been loaded with IV amiodarone. Will switch him to oral Lopressor 12.5 twice daily. Hence will DC amiodarone. Patient yesterday had wheezing was put on bronchodilators steroids per pulmonary. November 17: Propped up in bed. NG tube was discontinued. Sinus rhythm. Remains NPO. Getting G-tube feeding at 40 cc an hour. Dietitian following. Get arrangements done for DC home tomorrow including tube feeding. Increase activity discussed with patient and elder daughter at the bedside. Still requiring oxygen. Incentive spirometry. November 18: Patient up in recliner. Earlier today spoke to social work associate David. Informed patient is rather weak and will be going to the [facility]. Looking at authorization. Denae came to the room and spoke to patient his and his daughter. They are very keen to take the patient home as 3 daughters all nurses and they will take care of him at home. Patient earlier today to abdominal cramping and some loose stools.'s tube feeding was held. Told the nurse to start back at the rate of 40 cc an hour. He was before the getting it at 55 cc an hour. Incentive spirometry was again emphasized. Patient remains on 4 L of oxygen. November 19: I saw the patient this morning. Hence I am in the evening. Morning was sitting with his sons. Has some edema. Lungs had crackles I gave him 40 mg of Lasix. He did make good urine. Tube feeding was held from the previous evening of because of abdominal cramping. Acute abdominal series showed nonspecific bowel gas pattern and SBO to be ruled out. Family and patient was updated. Told him discharge will depend on day by day. Later this afternoon CT scanAnd abdomen pelvis done. Showed small bowel to be 3 point centimeter dilated. Some anasarca. Gastric findings. Gallstones. Later spoke to Dr. Irby from general surgery. They will further review and decide about further plan of action. Will give further dose of IV Lasix because of fluid overload from likely hypoalbuminemia and IV fluids previously received. Patient may take his pills by mouth. Total time spent today about 1 hour with over 40 minutes of discussion. Patient did state his breathing is better after Lasix this morning. November 20: Saw the patient this morning. was present. Patient received 2 more doses of Lasix. Diuresed well. Breathing much better. Lungs are sounding better. Discussed with Dr. Zepeda other surgeon. He is taking 3 cc out of the balloon and the gastrostomy tube. Started trickle feeding at 5 cc an hour. Will see how this does. Later in the day ran into the and the daughter again. Did update them on the same. Dilaudid was discontinued yesterday but morphine was ordered by surgery for patient having pain. Concerns about GI issues with that we will DC the morphine. As family does not want the same. November 21: Patient reclining bed. Tired. Several family members at the bedside. Including his and eldest daughter. Patient started on trickle feed yesterday at 5 cc an hour. This morning he has been on 10 cc an hour. Still having some loose stools. C. difficile was ordered. Patient on 2 L of nasal cannula. Has diuresed well. Will give an additional dose of Lasix today. If C. difficile is negative and the diarrhea is from the tube feedings we may have to use a fecal management system to keep him comfortable. Otherwise patient remains NPO. Dietitian is following the patient. Care was discussed length with patient the and daughter at the bedside. Questions answered. Liquid Tylenol has been added for abdominal pain. Avoid narcotics. Elevated white count likely from Solu-Medrol 11/23/2023--patient was feeling better today. Multiple family member at bedside. No issues overnight. Normal saline at 10 cc an hour, tube feeding at 20 cc an hour, remains on Zosyn, on 3 L oxygen. Afebrile. Heart rate 62, respiratory rate 16, blood pressure 114/67, saturating 91% on 3 L. WBCs 14.5, 9.7 hemoglobin. Platelet 242. BMP is unremarkable. Pulmonary and general surgery following. General surgery recommended to continue tube feeds at 20 cc/h. 11/24/2023--patient reported significant abdominal discomfort, also noted to have leak around G-tube. General surgery is following, evaluated the patient at bedside, adjusted tube feeds. Also reported having diarrhea, on 2 L oxygen, went up to 5 L. Blood pressure was low, 500 mL fluid bolus with close monitoring of respiratory status ordered. Currently on DuoNebs, Solu-Medrol, will continue Zosyn. Chest x-ray showed a left lower lobe infiltrate. Abdominal x-ray showed multiple air-fluid levels. CT abdomen showed multiple dilated small bowel loops, consistent with obstruction, pneumoperitoneum, cholelithiasis and ascites. WBCs 14.1, platelet 255, hemoglobin 8.9. NG tube in place. Family at bedside. patient transferred to SICU for close monitoring. 11/25/23--patient is currently in the ICU, required Levophed overnight due to low blood pressure, low urine output with creatinine trending up. Nephrology following. Landman also following. Patient remains n.p.o., NG tube in place, following NG tube insertion patient had total of 2 L output, J-tube was draining approximately 200 cc over last 8 hours, continues to have abdominal pain and abdominal tenderness. Patient on IV fluids. Currently on 4 L oxygen. WBCs 8.2, hemoglobin 12.3, platelet 188. Chest x-ray earlier today showed right sided port and a stable left lung airspace disease, NG tube in place. Patient currently on Zosyn, on IV Dilaudid for pain control, on IV Solu-Medrol. General surgery planning for OR today, started on TPN. 11/26/23--patient was seen and examined today. Patient is currently sedated, intubated on mechanical ventilation. Family at bedside. Patient underwent ex lap, abdominal washout, small bowel resection with new feeding jejunostomy tube placement yesterday, small bowel was noted to be perforated with significant contamination of abdominal cavity. Patient is currently on vancomycin and Zosyn. Creatinine went up to 2.85, nephrology following, recommended to continue IV fluids, avoid nephrotoxin Preserved EF on echocardiogram.. Patient currently on Levophed, vasopressin in the ICU for close monitoring. Patient is afebrile, heart rate 122, blood pressure 129/76, currently on mechanical ventilation, sedated. November 26: ICU. Intubated. FiO2 60 and a PEEP of 5. Drips include IV amiodarone. Heart rate was up early did get fired microgram of IV digoxin and 2.5 mg of IV Lopressor. Did drop her blood pressure bit. Urine output was low. Received 80 mg of IV Lasix. Ahmet to 150 cc. Other drips include IV propofol, vasopressin, Levophed. TPN was started yesterday. Antibiotics include IV Zosyn and vancomycin. Patient has a J-tube to drainage to gravity. Spoke to patient's younger daughter and at the bedside. Prognosis guarded. Continue current treatment plan. Chest x-ray shows right lower lobe consolidation. Small pleural effusion. November 27: ICU. Intubated. FiO2 55 and a PEEP of 5. Antibiotics include IV vancomycin. Drips include Levophed at a small dose, IV vasopressin, propofol, amiodarone. Patient converted to sinus rhythm this morning. Getting TPN and normal saline at 75 cc an hour. Urine output about 25 cc an hour. RAYA drain put out about 260 cc last 12 hours that is last overnight caregiver. NG tube with bilious output. And also GI J-tube output to gravity. Spoke to patient's and daughter at the bedside. They understand patient still not out of the kee. Platelets have dropped-therefore probably Zosyn stopped. November 28: ICU. Intubated. FiO2 55 and a PEEP of 5. Patient is in sinus rhythm. Seen this morning. Due for dialysis catheter this afternoon. Urine output about 15 to 20 cc an hour. Patient is on IV Lasix 80 mg every 12. Saline is KVO. Drips include IV propofol vasopressin. Patient having significant output through the RAYA drain and the jejunostomy tube to drainage. Creatinine had been getting worse. Patient's at the bedside. Understands patient's remains critically ill. Hemoglobin is down to 7. Given that patient's pain hypotensive, and on vasopressin we will give a unit of blood with dialysis. Getting TPN antibiotic changed to IV meropenem November 29: ICU. Intubated. FiO2 55 and a PEEP of 5. Remains in sinus rhythm. Getting TPN. Dialyzed yesterday and this morning. About 1000 cc removed. Urine output about 50 cc an hour. Patient is on IV propofol. Off vasopressin. Still having significant output through the RAYA drain and jejunostomy tube. Patient received a second unit of blood yesterday. Patient's and daughter at the bedside. I did discuss guarded prognosis. Did asked them to revisit CODE STATUS.. Getting IV meropenem. November 30: ICU. Intubated. Did get a sedation holiday t today. Back on propofol. Getting TPN. Still getting IV Lasix. Fair urine output. Jejunostomy tube in last 8 hours was about 30 cc output. RAYA drain in the 8 hours had about 180 cc output. Telemetry shows sinus rhythm. NG tube has low intermittent suction with negative output. On the vent with FiO2 40 and a PEEP of 5. No hemodialysis today. Discussed with the and eldest daughter at the bedside. IV meropenem-patient's sputum had grown Citrobacter freundii and Pseudomonas aeruginosa. December 01: ICU. Intubated. Jejunostomy tube to gravity. Only 10 cc output in last 24 hours. RAYA drain. About 190 cc last 6 hours. Nasogastric tube to low intermittent suction. Minimal output. Patient is on a small dose of propofol 5 mics. Telemetry shows sinus rhythm. Patient started on small dose of Cleviprex this morning. Blood pressure. Getting TPN. FiO2 35 and PEEP of 5. Discussed with the at the bedside. Hemodialysis today December 02: ICU. Patient remains intubated. FiO2 35 PEEP of 5. Patient is on IV propofol. IV Cleviprex was discontinued yesterday. Also remains on TPN. Telemetry shows sinus rhythm. NG tube is good no output. Still significant output through the RAYA drain. Jejunostomy tube has minimal output. Patient had hemodialysis today 2 L of fluid was removed. Oral half liters yesterday. Patient getting a sedation holiday. General Surgery started the patient on trickle feeding at 10 cc an hour. I did speak to patient's at the bedside. Prognosis remains guarded but there is some improvement. December 03: ICU. Intubated. FiO2 35 PEEP of 5. Drips include IV propofol and Precedex. Getting TPN. Telemetry shows sinus rhythm. Remains on IV Lasix 80 mg twice a day. IV meropenem. Because patient gets easily agitated when transitioning off propofol he has been switched over to Precedex. For hemodialysis today. December 04: ICU. Intubated. FiO2 35 and a PEEP of 5. Patient been taken off propofol is on Precedex. Telemetry sinus rhythm. J-tube with minimal output. RAYA drain with decreased output. NG tube to suction minimal output. Family wanted to hold off trickle feeding until cleared by oncology. Which he did today. Trickle feeding will be started today. Spoke to patient's and one of the daughters at the bedside. Dr. Russ is spoken to the earlier this point they want to do further tracheostomy tube. December 05: ICU. Intubated. FiO2 35 PEEP of 5. Patient remains on Precedex and PPN. Patient's dialysis catheter was not functioning is getting another [address] Bobby this afternoon. Remains on IV meropenem. Has a RAYA drain in the jejunostomy tube to gravity. NG tube to low intermittent suction. No family at the bedside. December 06: ICU. Intubated. FiO2 35 PEEP of 5. RAYA drain putting out about approximately 120 cc per shift. Patient on IV Precedex. FiO2 35 PEEP of 5. Telemetry-sinus rhythm. Patient occasionally been put on small dose of Levophed specially for hemodialysis getting it today. Also started on midodrine for low blood pressure. Tolerating tube feeding at 10 cc an hour. Also had a bowel movement. Mentation has not improved. Even with sedation holiday. Neurology consulted. CT brain shows no acute process. December 07: ICU. Intubated. FiO2 35 PEEP of 5. Telemetry-sinus rhythm. NG tube to suction low intermittent minimal output. Getting TPN. Tube feeding at 20 cc an hour. RAYA drain averaging over 100 cc per shift. Remains on Precedex. EEG was done today. Discussed with at the bedside. Family is currently not inclined for tracheostomy tube today. Day 13 of being intubated December 08: ICU. Intubated. FiO2 35 PEEP of 5. Patient is put on back on propofol per licensed clinical social worker Dr. JIMENEZ. EEG did show some potential for spikes was put on Keppra by neurology. Telemetry shows sinus rhythm. NG tube to suction with no output. Tube feeding was put on hold because of questionable discharge on the site. Being restarted today. RAYA drain is 150 cc last 12-hour shift. Patient does open eyes. Family has decided to proceed with tracheostomy and surgery has been consulted for the same. Spoke to the at the bedside. For hemodialysis today. December 09: ICU. Intubated FiO2 35 PEEP of 5. Patient seen this morning. Pending tracheostomy placement this afternoon. Remains NPO. G-tube feeding was held overnight. RAYA drain putting out about 100 cc per shift. Received a unit of blood for hemoglobin of 6.6. On 25 mics of propofol. Getting TPN and meropenem. Spoke to the at the bedside. Patient became hypotensive with dialysis yesterday. Levophed had to be given. Only 800 cc were removed yesterday. No hemodialysis today. December 10: ICU . FiO2 35, PEEP 5. Tracheostomy was done yesterday by Dr. Ewing. G-tube feeding was started today at 10 cc an hour. Dietitian following. RAYA drain 12-hour shift overnight put out about 30 cc. Patient hemodialysis to day about 1 L removed. Patient has a sacral stage II decub with a dressing. On propofol 20 mics. Spoke to at the bedside. TPN. Meropenem was discontinued yesterday. December 11: ICU. FiO2 35 PEEP of 5. Tracheostomy. NG tube was discontinued. No hemodialysis today. Telemetry shows sinus rhythm. J-tube feeding at 40 cc an hour. TPN was discontinued. Patient has been off propofol also. PICC line in place. Patient had a EEG done today. Spoke to patient's elder daughter at the bedside. May open eyes occasionally. Not really following commands December 12: 73-year-old white male with history of chronic abdominal pain for the last 8 months has been treated with Protonix 40 mg daily for the last 3 months with no improvement. Patient had a 22 pound weight loss in the last [address] of the abdomen and pelvis 3 weeks ago showed thickening of the antral wall with pathological adenopathy posterior to the stomach suspicious of neoplasm. Today the patient underwent elective upper endoscopy to evaluate further, patient received IV sedation by anesthesia endoscope was inserted into the mouth, esophagus was intubated without any difficulty there was evidence of large amount of liquid and solid food noted in the stomach suggestive of gastric outlet obstruction. Scope could not be advanced through the pylorus, however in the prepyloric area there was a large superficial ulceration identified with multiple biopsies were done from this area. The body cardia and fundus could not adequately visualize because of large amount of retained food in the stomach. Scope was withdrawn back to the stomach and upon careful examination the mucosa of the antrum body and cardia as well as the fundus appeared normal. Procedure was being performed and biopsies were done patient threw up and subsequently became hypoxic there was clearly evidence of witnessed aspiration anesthesia intubated the patient, procedure was terminated, and the patient was transferred to the ICU, this consult was initiated. Patient is now on assist- control rate of 20 tidal volume 500 FiO2 70% PEEP of 10 ABG is pending, earlier ABG showed profound hypoxia patient is on propofol at 50 mcg/kg/min, next ABG is pending. Chest x-ray showed chronic changes without evidence of acute pulmonary disease. 12/14/2023 Patient remains in the ICU, generally weak Patient s/p tracheostomy G-tube in place Patient still has fever and mild tachycardia but tachycardia is improving, leukocytosis improving as well. Hemoglobin 8.1. Creatinine 3.0 and nephrology team on the case. He has mild transaminitis. He was getting Zosyn which is held now, nowCalcitonin is pending 12/14 Patient shon in the ICU, he is still encephalopathic and does not follow command. Neurology service following closely. He is status post tracheostomy. Also J-tube His abdomen looks soft and on exam he has mild coarse secretions. Has a Abarca catheter with clear urine His pro- Calcitonin is still high but trending down 3.0 down to 1.9 No fever this morning WBC slightly less at 16.3 Patient currently off antibiotic He is getting steroids IV Solu-Medrol which might contribute to his leukocytosis. Also he is on IV Keppra by neurologist 12/14 Patient remains confused in the ICU calm, he had a good night per family member and staff. Tracheostomy in place Patient has occasional coughing spells, patient also developed some partial wound dehiscence in his abdomen, surgery team are aware and are going to evaluate the patient Patient also has positive blood culture from 12/13: Gram-positive cocci in clusters. Patient received one-time dose of IV vancomycin. Patient also had fever 2 days ago, leukocytosis and total elevated pro- Calcitonin. Therefore we are going to consult infectious disease team. As his antibiotic Zosyn was stopped few days ago. Currently patient KVO He has good urine output December 16: ICU. Trach. Congested. Requiring suctioning. No hemodialysis today. Getting G-tube feeding at 50 cc an hour. FiO2 30 and a PEEP of 5. On IV Precedex. Eyes open. Does follow commands. Weakness in the limbs. Spoke to at the bedside. Sputum positive for Klebsiella oxytoca and Pseudomonas aeruginosa. December 17: ICU. On trach. Currently cough with increased secretions requiring suctioning. Adding scopolamine patch. Very much clear secretion. CT scan is showing right upper lobe lung abscess. G-tube feeding at 50 cc an hour. Hemodialysis today. RAYA drain putting out about 140 cc a shift. Serous. Has been midline incision wound dehiscence. Wound VAC was placed on it. Stage II ulcer. Patient is on Precedex drip 0.15 mics. Urine output is good about 6200 cc an hour. Spoke to the at the bedside. Patient currently not stable for transfer to LTAC. No limb movements. PT OT on the case. otherwise awake does follow simple commands by face December 18: ICU. Patient seen this afternoon. Because of pain getting IV Dilaudid. No nasal cannula on room air. Does move about his head. Telemetry shows sinus rhythm. FiO2 30 and a PEEP of 5. Patient started on scopolamine patch yesterday has decreased secretions today. Good urine output. Tube fee ding at 60 cc an hour. Wound VAC on incisional would be high since in place. RAYA drain continues to make output. No hemodialysis today December 19: ICU. Patient was seen earlier today. FiO2 30 and a PEEP of 5. Sinus rhythm. Awake. Does follow with eyes. Tube feeding got obstructed tube feedings held for now. Increasing oozing from the incision drainage site. at the bedside. Wound VAC remains in place. Good urine output. Dialysis held today. December 20: ICU. Per nephrology no dialysis today. 1 L fluid bolus given. J- tube was replaced over the wire by Dr. Ewing from surgery. On Precedex 0.6 mcg. FiO2 30 and a PEEP of 5 on the vent. RAYA drain putting out of around 100 cc per shift. at the bedside. Drainage through the abdominal incision wound. CT scan abdomen showed tube placement in the small bowel. Stable large right lower quadrant mass with a fluid level. December 21: ICU. No dialysis today. Patient started on trickle feeding through the J-tube yesterday. He started leaking around the J-tube site. Tube feeding was held. Dressings were placed. Wound VAC remains on the incision. Still having output through the RAYA drain. Patient remains on Precedex 0.4 mcg. FiO2 30 and a PEEP of 5. Sinus rhythm. at the bedside. December 22: ICU. Patient was seen this morning today by me. No dialysis today. Patient's and daughter at the bedside. FiO2 30 and a PEEP of 5. Sinus rhythm. Still having significant secretions through the tracheostomy tube. On Precedex 0.4 mcg. Getting D5W IV fluids. Tube feeding remains to be on hold since yesterday. Still output of RAYA drain. Awaiting input from surgery. Discussed with the and daughter. December 23: ICU. Saw the patient this afternoon. Because of good output of urine dialysis has been discontinued. Telemetry shows sinus rhythm. FiO2 30 and a PEEP of 5. RAYA output has been around 8200 cc an hour. Good urine output. Patient does have very slight movement of the limbs. Wound VAC is putting out about 20 cc per shift. Yesterday when trickle feeding was started patient's J- tube drainage also started leaking around the insertion site. Tube feeding was held. Patient remains on IV Zosyn and Precedex at 0.3 mcg. I had a very lengthy discussion with patient's daughter and at the bedside overall guarded prognosis. Later surgery spoke to the family, and then the nurse called me that family was wanting transferred to [facility]. I spoke to Dr. Irby. They felt they could not offer anything more at this point. I did call the [facility] transfer receiving team member. Gave them the reason for transfer. Later in the ICU nurse informed me through [employer] that [facility] had declined the transfer. Total time spent today about 50 minutes with over 30 minutes of discussion. December 24: ICU. Patient is doing not too well. Sinus rhythm. Drips include norepinephrine and IV propofol. Surgery did put 2 stitches around the J-tube insertion site. Started on TPN today. FiO2 30 PEEP of 5. Patient became hypothermic put on a Manjit hugger. Also hypoglycemic. Decreased urine output. IV fluids increased. Patient's son was at the bedside. I did speak to patient's eldest daughter outside in the waiting room. Did tell the patient doing very poorly. I did try to call the on the phone number she has gone home. Started an IV antifungal today. December 26, 2023 73-year-old white male with history of chronic abdominal pain for the last 8 months has been treated with Protonix 40 mg daily for the last 3 months with no improvement. Patient had a 22 pound weight loss in the last [address] of the abdomen and pelvis 3 weeks ago showed thickening of the antral wall with pathological adenopathy posterior to the stomach suspicious of neoplasm. Today the patient underwent elective upper endoscopy to evaluate further, patient received IV sedation by anesthesia endoscope was inserted into the mouth, esophagus was intubated without any difficulty there was evidence of large amount of liquid and solid food noted in the stomach suggestive of gastric outlet obstruction. Scope could not be advanced through the pylorus, however in the prepyloric area there was a large superficial ulceration identified with multiple biopsies were done from this area. The body cardia and fundus could not adequately visualize because of large amount of retained food in the stomach. Scope was withdrawn back to the stomach and upon careful examination the mucosa of the antrum body and cardia as well as the fundus appeared normal. Procedure was being performed and biopsies were done patient threw up and subsequently became hypoxic there was clearly evidence of witnessed aspiration anesthesia intubated the patient, procedure was terminated, and the patient was transferred to the ICU, this consult was initiated. Patient is now on assist- control rate of 20 tidal volume 500 FiO2 70% PEEP of 10 ABG is pending, earlier ABG showed profound hypoxia patient is on propofol at 50 mcg/kg/min, next ABG is pending. Chest x-ray showed chronic changes without evidence of acute pulmonary disease. 12/27/2023 Patient is seen and evaluated with family at bedside; remains in the ICU intubated and mechanically ventilated. - ABG showed a pO2 of 99 pCO2 31 pH of 7.44. -- Remains on Eraxis daptomycin and Zosyn patient is intermittently requiring Dilaudid, Ativan does not seem to help his agitation and restlessness. -- Continues to have leakage around the jejunostomy tube, and patient is undergoing the J-tube exchange today. Family is at bedside, seems to be quite anxious about his overall condition, and I explained to the that we are doing the best we can considering his critical illness situation and critical illness polyneuropathy. Patient is profoundly weak, and weaning the patient from mechanical ventilation is almost impossible. At least not at this point yet WBC count is 10.9 hemoglobin is 8.1 basic metabolic profile is normal BUN is 46 creatinine 1.90 patient has been off hemodialysis since the . Chest x- ray continues to show stable findings with right upper lobe opacity and right lower lobe opacity and possibly a small right-sided pleural effusion ----Continue ventilatory support, now on IMV mode rate of 16 with pressure support of 14 Continue Precedex and use Dilaudid 0.5 mg every 2-3 hours as needed. Nutritional support patient is now on TPN, Possible J-tube changed today for J- tube malfunction Continue antibiotics including daptomycin and Zosyn, Eraxis was added by infecti ous disease 12/28/2023 the patient is seen and evaluated in room at bedside; continues to be afebrile, the patient is on the ventilator through the trach FiO2 is currently stable at 30% no significant pleural effusion clinically patient on requiring any pressor support still having drainage around his jejunostomy tube patient dialysis catheter has been discontinued. Patient white count normalized to 7.6, creatinine is 1.51 patient with pneumonia with a sputum showing Citrobacter and Pseudomonas aeruginosa, the patient sputum repeat is still growing Citrobacter and Ps eudomonas sensitive to the Pseudomonas is pending continue with Zosyn -patient did have a positive blood culture with staph epi that was oxacillin resistant as the patient did have a PICC line and the dialysis catheter he is on daptomycin repeat blood culture currently growing oxacillin sensitive staph epi, the patient dialysis catheter has been discontinued Has been sent for the culture -patient also have significant excoriation around his jejunostomy tube site which is still leaking Eraxis was added which will be continued as the patient fever pattern has improved and the patient white count has normalized once again discussed with the nursing staff to apply Triad cream which was discussed yesterday but not applied and monitor clinical course closely 12/29/2023 Patient is seen and evaluated with family members at bedside; remains intubated and mechanically ventilated -- ABG showed a pO2 of 105 pCO2 31 pH of 7.45. Remains on Precedex; multiple antibiotics and antifungal including Eraxis daptomycin and Zosyn. -- chest x-ray is showing improvement in his right upper lobe airspace disease/pulmonary abscess. Right lower lobe seems about the same with chronic opacity and possibly some small right-sided pleural effusion. --Family is at bedside, patient is arousable but does not follow any instructions. Gets extremely restless and agitated easily hence patient is receiving Dilaudid which seems to be working much better for this patient than benzodiazepines --possibly transfer the patient to a select care specialty. 12/30/2023 Evaluated in follow-up in the intensive care unit. He remains on the mechanical ventilator. Status post tracheostomy. There has been a decrease in the amount of leakage around the J-tube site he continues on a gravity flow. TPN is infusing tube feedings remain on hold at this time. No bowel movement reported for the last 5 days. X-ray today reveals extensive pleural parenchymal opacities throughout the right with at least a moderate pleural effusion. Mild patchy densities left mid and lower lung are also similar. Blood work reveals a white blood cell count 11.5, hemoglobin 8.1, platelet count of 78, sodium 142, potassium 4.2, BUN of 42, creatinine of 1.22, Phos of 2.3, magnesium 1.9. Patient continues on IV anidulafungin IV Zerbaxa IV daptomycin. Patient is currently sedated with propofol and also Precedex which is currently on hold at this time. December 31, 2023: ICU. Patient continues to do poorly. On propofol 35 mics. Also getting IV Dilaudid and IV Ativan.. Telemetry shows sinus rhythm. J-tube feeding has been discontinued. Significant output through the Abarca bag and around the G-tube site. Patient also putting out through the RAYA drain on the right side. Getting TPN and lipids. Patient is antimicrobial include iv aniedulefungin, IV ceftolozane/tazobactam, IV daptomycin Advance care planning [October 31, 2023] I met with patient's at the bedside. Went through in detail with patient is overall very poor clinical status. Chances of any meaningful recovery next to minimal. I also did mention that patient in my opinion was not stable to go to chronic ventilator setting. I suggested comfort care/hospice. I did not feel and why all honesty that patient is benefiting any further from the treatment we are giving him in fact causing probably more suffering. I also spoke to patient's daughter outside in the waiting room. Total time spent about 50 minutes with over 30 minutes of discussion. Later I called Dr. Luther JIMENEZ the licensed clinical social worker after he received a text that family was expressing that some physician expressed he was doing better and giving hope. I spoke to nurse Aminta in the evening and she and Dr. JIMENEZ did go and talk to patient's family at the bedside later. January 01, 2024: ICU. FiO2 30 and a PEEP of 5. Continues to have increased drainage at the G-tube site. Wound VAC in place over the incision. RAYA drain continues to put out excretions. Good urine output. Drips include IV propofol at 20 mics, also getting IV Ativan and Dilaudid. Patient also keeping getting TPN lipids. Spoke to the patient's at the bedside. No further questions. I did speak to Dr. Irby from general surgery. Hence it is both our impression again that changing the tube will not make any difference to the bigger picture. And probably futile. Dr. Irby will be speaking to the family today. David from social work associate did ask about of family meeting. I did reiterate that I spoken at length to the a few times and also the daughter. Dr. Jimenez also spoke to the and Dr. Irby will be speaking with the today. Prognosis remains to be very poor. I did tell the in my opinion probably the patient is not r a candidate for long-term facility. Will licensed clinical social worker Dr. Jimenez determine if the patient is a candidate for long-term chronic ventilator facility. Active Medications Acetaminophen (Acetaminophen Tab 325 Mg Tab) 650 mg PO Q4HR PRN PRN Reason: Fever and/ or Pain Last Admin: 12/09/23 20:09 Dose: 650 mg Acetaminophen (Acetaminophen Oral Susp (Peds) 3,840 Mg/120 Ml Bottle) 480 mg PO Q4HR PRN PRN Reason: Fever Albuterol/Ipratropium (Ipratropium-Albuterol 3 Ml Neb) 3 ml INHALATION RT-QID [facility] Last Admin: 01/01/24 15:18 Dose: 3 ml Albuterol/Ipratropium (Ipratropium-Albuterol 3 Ml Neb) 3 ml INHALATION RT-Q2H PRN PRN Reason: Shortness Of Breath Or Wheezing Last Admin: 12/03/23 03:45 Dose: 3 ml Chlorhexidine Gluconate (Chlorhexidine Gluconate 15 Ml Cup) 15 ml MUCOUS MEM BID [facility] Last Admin: 01/01/24 08:12 Dose: 15 ml Darbepoetin Scooby (Darbepoetin Scooby 40 Mcg/0.4 Ml Syringe) 40 mcg SQ Q7D [facility] Last Admin: 12/31/23 14:23 Dose: 40 mcg Dextrose/Water (Dextrose 50% Syringe 50 Ml) 25 ml IVP PER PROTOCOL PRN; Protocol PRN Reason: Hypoglycemia Last Admin: 12/24/23 01:01 Dose: 25 ml Dextrose/Water (Dextrose 50% Syringe 50 Ml) 50 ml IVP PER PROTOCOL PRN; Protocol PRN Reason: Hypoglycemia Last Admin: 12/25/23 18:03 Dose: 50 ml Hydromorphone HCl (Hydromorphone 2 Mg/Ml 1 Ml Syringe) 1 mg IVP Q2H PRN PRN Reason: Pain Last Admin: 01/01/24 12:16 Dose: 1 mg Anidulafungin 100 mg/ Sodium (Chloride) 130 mls @ 84 mls/hr IVPB DAILY [facility]; Protocol Last Admin: 01/01/24 08:15 Dose: 84 mls/hr Daptomycin 600 mg/ Sodium (Chloride) 50 mls @ 100 mls/hr IVPB Q24H [facility]; Protocol Last Admin: 01/01/24 12:46 Dose: 100 mls/hr Ceftolozane/Tazobactam 3 gm/ (Sodium Chloride) 100 mls @ 100 mls/hr IV Q8H [facility]; Protocol Last Admin: 01/01/24 13:32 Dose: 100 mls/hr Fat Emulsion Intravenous 250 (ml/ IV Solution) 250 mls @ 21 mls/hr IV DAILY@1000 [facility] Last Admin: 01/01/24 08:14 Dose: 21 mls/hr Propofol 1,000 mg/ IV Solution 100 mls @ 9.144 mls/hr IV .[id number] [facility]; Protocol Last Admin: 01/01/24 12:20 Dose: 20 mcg/kg/min, 12.192 mls/hr Parenteral Vitamin Supplement 10 ml/ Zinc/Copper/Manganese/Selenium 1 ml/ Potassium Acetate 40 meq/ Amino Ac/Electrol/Dextrose/Calcium 2,031 mls @ 90 mls/hr IV .[id number] [facility] Last Admin: 01/01/24 12:40 Dose: 90 mls/hr Insulin Aspart (Insulin Aspart (Novolog) 100 Unit/Ml Vial) 0 unit SQ 0000,0600,1200,1800 [facility]; Protocol Last Admin: 01/01/24 12:21 Dose: 2 unit Levetiracetam (Levetiracetam Iv 500 Mg/5 Ml Vial) 250 mg IVP Q24HR [facility] Last Admin: 01/01/24 08:13 Dose: 250 mg Lorazepam (Lorazepam 2 Mg/Ml Inj) 1 mg IV Q6HR PRN PRN Reason: Anxiety Last Admin: 01/01/24 08:15 Dose: 1 mg Metoprolol Tartrate (Metoprolol Tartrate 5 Mg/5 Ml Vial) 2.5 mg IVP Q6HR PRN PRN Reason: Heart Rate - HIGH Last Admin: 11/27/23 08:25 Dose: 2.5 mg Midodrine (Midodrine 5 Mg Tab) 5 mg PO AC-TID [facility] Last Admin: 01/01/24 09:22 Dose: Not Given Miscellaneous Information (Magnesium Replacement Protocol 1 Each Misc) 1 each MISCELLANE DAILY PRN; Protocol PRN Reason: Per Protocol Miscellaneous Information (Potassium Replacement Protocol 1 Each Misc) 1 each MISCELLANE DAILY PRN; Protocol PRN Reason: Per Protocol Multi-Ingred Cream/Lotion/Oil/Oint (Hydrophilic Cream 180 Gm Tube) 1 applic TOPICAL BID [facility]; Protocol Last Admin: 01/01/24 08:13 Dose: 1 applic Multi-Ingredient Ointment (Zinc Oxide 20% Oint 28.4 Gm Tube) 1 applic TOPICAL BID PRN; Protocol PRN Reason: Skin Irritation Naloxone HCl (Naloxone 0.4 Mg/Ml 1 Ml Vial) 0.2 mg IV Q2M PRN PRN Reason: Opioid Reversal Pantoprazole Sodium (Pantoprazole 40 Mg/10 Ml Vial) 40 mg IVP BID [facility] Last Admin: 01/01/24 08:12 Dose: 40 mg Petrolatum (Zinc Oxide Paste (Z-Guard) 1 Applic) 1 applic TOPICAL BID [facility]; Protocol Last Admin: 01/01/24 08:13 Dose: 1 applic Past medical history to include: GERD Social history: . No smoking. Physical examination: VITAL SIGNS: 97.7, 87, 33, 123 x 56, 99% on the ventilator GENERAL: Sedated. Left groin dialysis catheter. Right chest wall port. Getting TPN and lipids EYES: Pupils equal. Conjunctiva edouard l. HEENT: External appearance of nose and ears normal, tracheostomy-. NECK: JVD unable to assess; masses not palpable. HEART: First and second heart sounds are normal; edema, present LUNGS: Respiratory rate increased, decreased breath sounds ABDOMEN: Soft, some tenderness. Liver spleen not palpable, no masses palpable..jejunostomy tube-dressing in place, soaked. RAYA drain. Incision with stitches with - wound VAC PSYCH: Unable to assess NEURO: Patient sedated INVESTIGATIONS, reviewed in the clinical context: December 31: White count 12.1 hemoglobin 7 platelets 69 sodium 141 potassium 4.3 creatinine 1.11 iron 13 TIBC 105% saturation 12.3 ferritin 642 Sputum culture [December 24] Citrobacter freundii, Pseudomonas aeruginosa Blood culture [December 24] Staphylococcus pettenkoferi December 30: White count 12.8 hemoglobin 7.3 platelets 67 sodium 140 potassium 3.6 creatinine 1.15 December 24: White count 1.5 hemoglobin 8.2 platelets 106 potassium 3.8 BUN [address] chest abdomen without contrast [December 16] right upper lung cavitary lesion with air-fluid level in the posterior aspect and a larger cavitary lesion possibly within the lung parenchyma itself. Extending down towards the diaphragm additional airspace opacities in the left lung base. December 09: White count 26.1 hemoglobin 8.6 platelets 154 potassium 4.1 BUN 86 creatinine 3.31. Hemoglobin this morning was 6.6 prior to transfusion EEG-evidence of generalized cerebral dysfunction and sporadic intermittent higher amplitude sharply contoured waves mainly bifrontal. Showing cortical irritability. 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 Serosal fibrous adhesions. Viable margins. Sputum culture: [November 25]: Citrobacter freundii. Pseudomonas aeruginosa November 20: White count 14.4 hemoglobin 8.8 platelets 229 potassium 4.1 BUN [address] scan abdomen [November 19] possible small bowel obstruction Stool: C. difficile negative November 15: WBC 13 hemoglobin 7.7 platelets 248 potassium 4.3 creatinine 0.87 2D echo: EF 55 to 60%. Kidneys bladder: Unremarkable November 13: White count 12 hemoglobin 6.9 platelets 276 potassium 4.4 creatinine 1.21 magnesium 1.8 iron 6 TIBC 365% saturation 1.64 transferrin 261 ferritin 34.6 B12 569 folate 4.4 November 11: Creatinine 0.86 EGD: Large amount of retained solid liquid food noted in the stomach. Large superficial gastric antral ulceration involving most of the antrum extending into the pylorus causing pyloric stenosis. Biopsies were obtained. Chest x-ray film personally reviewed by me-scattered infiltrates Assessment plan: -Aspiration pneumonitis bilateral from retained gastric contents mostly food and liquids, causing acute hypoxic respiratory failure: On presentation: Subsequent bacterial pneumonia sputum culture November 25: Citrobacter freundii, Pseudomonas aeruginosa. December 13: Klebsiella oxytoca, Pseudomonas aeruginosa IV meropenem-was received originally. Also received IV Zosyn. Currently receiving:iv aniedulefungin, IV ceftolozane/tazobactam, IV daptomycin -Sepsis with septicemia from above Antibiotics -Probable lung abscess larger 1 on the right side-patient cultures are growing Pseudomonas and Klebsiella oxytoca , daptomycin, other antibiotics -Acute pulmonary edema and fluid overload from hypoalbuminemic state and fluids from IV.:: Has been getting Lasix and dialysis: Both held -Altered mentation. Possibly encephalopathy. Could be delirium.: Not improving CT brain [December 06] nothing acute Neurology following EEG-evidence of generalized cerebral dysfunction and sporadic intermittent higher amplitude sharply contoured waves mainly bifrontal. Showing cortical irritability. Keppra was started on December 07 -Critical care poly- Pedro neuropathy: Slow to respond PT OT -Gallstones, asymptomatic -Small l bowel perforation at site of jejunostomy tube tip with balloon..: Portion of small bowel resected. On November 24. New J-tube was placed.- drainage to gravity:-Now discontinued December 19: J-tube blocked. J-tube replaced on December 20 over wire December 21: Leaking around the J-tube site. Feeding held December 23: J feeding was started yesterday evening but again started leaking increasingly around the J-tube site-feeding held again December 24: J-tube feeding has been held. Patient is currently having increased drainage from the J-tube site and also Abarca bag over the ostomy -Acute kidney injury. Possible ATN from hypotensive shock: Slow to respond Renal ultrasound unremarkable. Started on renal replacement therapy on November 28. Followed by nephrology-dialysis has been held -Nutrition Jejunostomy tube placed November [address] Ewing Received TPN-this was discontinued. TPN lipids restarted on December 24 -Midline abdominal incision wound dehiscence Wound VAC placed -Acute recurrent atrial fibrillation-converted to sinus rhythm Received IV amiodarone. Cardiology following Lopressor -Acute hypoxic respiratory failure from aspiration pneumonia, status post ventilator assisted: Reintubated November 25. FiO2 35 PEEP of 5 Tracheostomy tube-by Dr. Zepeda on December 09 -Septic shock, recovered -Hypertension Patient started on Cleviprex-discontinued -Intermittent hypotension Intermittent use of Levophed. 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 Also anemia of blood draw. Iron deficiency anemia Received 3rd unit of blood . IV iron. -Severe thrombocytopenia. Would consider coagulation disorder secondary to infection., In the setting of underlying lymphoma.: Recovered Hematology following. 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 difficile ruled out. -Large superficial gastric antral ulceration involving the gastric antrum extending into the pylorus with gastric outlet obstruction. 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 Port placed. For outpatient PET scan. -Full code Patient continues to do poorly. Prognosis very poor. Discussed with Dr. Irby from general surgery. Think that tube will not change the outcome at all. Follow with consultants. Past Medical History Past Medical History: GERD/Reflux History of Any Multi-Drug Resistant Organisms: None Reported Past Surgical History: Heart Catheterization Additional Past Surgical History / Comment(s): colonsocopy,spinal injection, Past Anesthesia/Blood Transfusion Reactions: No Reported Reaction Past Psychological History: No Psychological Hx Reported Smoking Status: Never smoker Past Alcohol Use History: None Reported Past Drug Use History: None Reported
[2024-01-01 17:34] LABS: Glucose,Whole Blood 177 mg/dL (70-110)
[2024-01-01 18:33] LABS: ABG Base Excess -4.1 mmol/L; ABG HCO3 21 mmol/L (21-25); ABG PCO2 34 mmHg (35-45); ABG PH 7.38 (7.35-7.45); ABG PO2 93 mmHg (83-108); ABG TCO2 22 mmol/L (19-24)
[2024-01-01 18:37] LABS: Allen Test Performed? No
[2024-01-01] MEDS: CEFTOLOZANE/TAZOBACTAM 1.5 GM in SODIUM CHLORIDE 0.9% 100 ML IV ONE (21:14)
[2024-01-02 00:17] LABS: Glucose,Whole Blood 189 mg/dL (70-110)
[2024-01-02 04:53] LABS: ABG Base Excess -3.3 mmol/L; ABG HCO3 21 mmol/L (21-25); ABG Oxygen Saturation 97.8 % (94-97); ABG PCO2 34 mmHg (35-45); ABG PO2 90 mmHg (83-108); ABG TCO2 22 mmol/L (19-24); Allen Test Performed? Yes
[2024-01-02 05:27] LABS: Ionized Calcium 4.7 mg/dL (4.5-5.3)
[2024-01-02 05:38] LABS: African American GFR (CKD) 79 (>60 ml/min/1.73 sqM); Anion Gap 1 mmol/L; Blood Urea Nitrogen 45 mg/dL (9-20); Calcium 7.1 mg/dL (8.4-10.2); Carbon Dioxide 20 mmol/L (22-30); Chloride 119 mmol/L (98-107); Glucose 142 mg/dL (74-99); Magnesium 1.9 mg/dL (1.6-2.3); Non-African American GFR(CKD) 68 (>60 ml/min/1.73 sqM); Potassium 4.6 mmol/L (3.5-5.1); Sodium 140 mmol/L (137-145)
[2024-01-02 05:41] LABS: Anisocytosis Slight; HCT 20.9 % (39.0-53.0); Hypochromasia Moderate; MCH 29.7 pg (25.0-35.0); MCHC 32.5 g/dL (31.0-37.0); MCV 91.4 fL (80.0-100.0); Mean Platelet Volume 9.9; RBC 2.28 m/uL (4.30-5.90); RDW 18.7 % (11.5-15.5); WBC 10.1 k/uL (3.8-10.6)
[2024-01-02 05:45] LABS: HGB 6.8 gm/dL (13.0-17.5); Platelet Count 72 k/uL (150-450)
[2024-01-02 06:05] LABS: Phosphorus 3.4 mg/dL (2.5-4.5)
--- NOTE | 2024-01-02 07:38 | XR ---
EXAMINATION TYPE: XR chest 1V portable DATE OF EXAM: 01/02/2024 5:28 AM COMPARISON: 01/01/2024 CLINICAL INDICATION: Male, 73 years old with history of mechanical ventilation, , FINDINGS: Tracheostomy cannula. Right anterior chest wall injection port with tip near the inferior cavoatrial junction. Left PICC tip in the upper right atrium. Heart mildly enlarged. Interstitial densities pers ist. Small effusion remains at the left base with increasing patchy left lower lobe opacity. Prominen t parenchymal opacities right upper lung persists. Convexity marginated opacity at the right hilum pe rsists. Moderate right pleural effusion persists. Background interstitial density unchanged. IMPRESSION: 1. Overall similar exam with extensive pleural parenchymal opacities in the right hemithorax and back ground bilateral interstitial density. 2. However, patchy opacity at the left lower lung has slightly increased in the interval. [facility], , 01/02/2024 7:35 AM
[2024-01-02 11:05] LABS: Anisocytosis Slight; HCT 20.3 % (39.0-53.0); Hypochromasia Moderate; MCH 29.5 pg (25.0-35.0); MCHC 32.2 g/dL (31.0-37.0); MCV 91.6 fL (80.0-100.0); Mean Platelet Volume 9.4; Platelet Count 83 k/uL (150-450); RBC 2.21 m/uL (4.30-5.90); RDW 18.9 % (11.5-15.5)
--- NOTE | 2024-01-02 11:20 | P.PN ---
Subjective Patient is seen for follow-up for acute kidney injury. Nonoliguric. Started on hemodialysis November 29, 2023. Currently off of dialysis as renal function has recovered. Last dialysis on 12/18/2023 Renal function continues to improve. Tube feeds currently held. Receiving TPN. Status post packed RBCs today. Hemoglobin was 6.8 g/dL. Objective - Vital Signs Vital signs: Vital Signs Temp 98.1 F 01/02/24 04:00 Pulse 90 01/02/24 11:01 Resp 32 H 01/02/24 07:00 BP 103/71 12/31/23 02:00 Pulse Ox 95 01/02/24 07:00 FiO2 30 01/02/24 10:55 Intake & Output 01/01/24 01/02/24 01/02/24 18:59 06:59 18:59 Intake Total 3414.38 1581.108 93 Output Total 6510 1055 100 Balance -3095.62 526.108 -7 Weight 103.1 kg 102.2 kg Intake: IV 1353 1306 93 0.9 73 36 3 Ceftolozane/Tazobactam 3 100 100 gm In Sodium Chloride 0.9 % 100 ml @ 100 mls/hr IV Q8H [facility] Rx#:[id number] DAPTOmycin 600 mg In 100 Sodium Chloride 0.9% 50 ml @ 100 mls/hr IVPB Q24H [facility] Rx#:[id number] Invasive Line 2 90 90 TPN 990 1080 90 Intake, IV Titration 2061.38 275.108 Amount Mvi, Adult No.4 with Vit 2005.5 K 10 ml Trace (Conc-1Ml/ Dose) 1 ml Potassium Acetate 40 meq In Amino Acid 5%-D15w+Lytes*E* 2, 000 ml @ 90 mls/hr IV . [id number] [facility] Rx#:[id number] propofoL 1,000 mg In 55.88 275.108 Empty Bag 1 bag @ 15 MCG/ KG/MIN 9.144 mls/hr IV . [id number] [facility] Rx#:[id number] Output: Gastric Drainage 150 Drainage 5300 40 Right Abdomen 300 40 wound vac 5000 Urine 1060 1015 100 Other: Voiding Method Indwelling Catheter Indwelling Catheter # Bowel Movements 0 ABP, PAP, CO, CI - Last Documented Arterial Blood Pressure 98/50 - Exam patient is sedated andon the vent. Examination of the heart S1 and S2 Examination of the lungs decreased breath sounds at the bases Abdomen is soft Examination of lower extremities shows edema 1+ bilaterally in upper and lower extremities. - Labs CBC & Chem 7: 01/02/24 05:00 01/02/24 05:00 Labs: Abnormal Lab Results - Last 24 Hours (Table) 01/01/24 01/01/24 01/01/24 Range/Units 11:50 17:33 18:30 RBC (4.30-5.90) m/uL Hgb (13.0-17.5) gm/dL Hct (39.0-53.0) % RDW (11.5-15.5) % Plt Count (150-450) k/uL ABG pCO2 34 L (35-45) mmHg ABG O2 Saturation 98.0 H (94-97) % Hemoglobin 7.0 L* (13.0-17.5) gm/dL Chloride (98-107) mmol/L Carbon Dioxide (22-30) mmol/L BUN (9-20) mg/dL Glucose (74-99) mg/dL POC Glucose (mg/dL) 181 H 177 H (70-110) mg/dL Calcium (8.4-10.2) mg/dL Triglycerides (0.00-149.00) mg/dL Crossmatch 01/02/24 01/02/24 01/02/24 Range/Units 00:16 04:50 05:00 RBC (4.30-5.90) m/uL Hgb (13.0-17.5) gm/dL Hct (39.0-53.0) % RDW (11.5-15.5) % Plt Count (150-450) k/uL ABG pCO2 34 L (35-45) mmHg ABG O2 Saturation 97.8 H (94-97) % Hemoglobin 6.7 L* (13.0-17.5) gm/dL Chloride 119 H (98-107) mmol/L Carbon Dioxide 20 L (22-30) mmol/L BUN 45 H (9-20) mg/dL Glucose 142 H (74-99) mg/dL POC Glucose (mg/dL) 189 H (70-110) mg/dL Calcium 7.1 L (8.4-10.2) mg/dL Triglycerides 293.00 H (0.00-149.00) mg/dL Crossmatch 01/02/24 01/02/24 Range/Units 05:00 09:30 RBC 2.28 L (4.30-5.90) m/uL Hgb 6.8 L* (13.0-17.5) gm/dL Hct 20.9 L (39.0-53.0) % RDW 18.7 H (11.5-15.5) % Plt Count 72 L (150-450) k/uL ABG pCO2 (35-45) mmHg ABG O2 Saturation (94-97) % Hemoglobin (13.0-17.5) gm/dL Chloride (98-107) mmol/L Carbon Dioxide (22-30) mmol/L BUN (9-20) mg/dL Glucose (74-99) mg/dL POC Glucose (mg/dL) (70-110) mg/dL Calcium (8.4-10.2) mg/dL Triglycerides (0.00-149.00) mg/dL Crossmatch See Detail Assessment and Plan Assessment: 1. Acute kidney injury secondary to ATN secondary to septic shock. Creatinine 0.86 on admission and up to 5.38 dated November 29, 2023. nonoliguric. UA fairly benign. No hydronephrosis noted on imaging. Started hemodialysis on 11/29/2023 for worsening volume status and acute kidney injury. Renal function has improved and dialysis catheter was discontinued on 12/28/2023 2. Perforated small bowel status post exploratory laparotomy with abdominal washout, small bowel resection and J-tube replacement November 25, 2023. 3. A-fib with RVR. s/p amiodarone drip. 4. Recently diagnosed gastric B-cell lymphoma. 5. Septic shock. 6. Hypokalemia status post replacement. 7. Hypophosphatemia, being supplemented in TPN. 9. Hypernatremia, status post D5W and improved. Plan: Repeat labs in a.m. and adjust TPN as needed. Overall prognosis is guarded
--- NOTE | 2024-01-02 11:35 | P.PN ---
Subjective Progress Note Date: 01/01/24 01/01/2024: Patient was seen for a follow-up. Patient continues to be significantly encephalopathic. Patient is on propofol 20 mcg/kg/min. Patient has developed air leak from tracheostomy. 12/30/2023: Patient was seen for follow-up. Patient's daughter was present. Patient currently on propofol 35 mcg/kg/min. Patient continues to have sepsis, pneumonia being treated. Patient currently on Eraxis, Zerbaxa, daptomycin. Per patient's daughter, patient's motor improvement has regressed since back on propofol. Previously was doing better on Precedex. 12/22/2023: Patient was seen for a follow-up. Patient's was also present today. She states that she is doing better, but right now he has received Dilaudid, therefore somnolent. 12/20/2023: Patient was seen for follow-up. Patient's daughter and patient's are both present. Patient apparently has started responding remarkably. Patient is moving his lower extremities proximally and distally quite well, improved within the last 24 hours. Also able to move his arms well. 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 12/19/2023: Patient was seen for a follow-up. Patient's and patient's daughter were present today. Patient is clinically unchanged. Continues to be very weak in the arms and legs. 12/18/2023: Patient was seen for a follow-up. Patient is much more alert and awake. He is off sedation. Please refer to examination below. 12/17/2023: Patient was seen for a follow-up. Patient's was also present, who believes that patient is doing better. Patient is nodding appropriately. He is still very weak in the arms and legs, not able to follow directions otherwise. Patient nods "no" for headache. Patient has tracheostomy. 12/16/2023: Patient was seen for a follow-up. Patient is laying in the bed, severely encephalopathic. Patient now has tracheostomy. Patient currently on Precedex 0.2 mcg/kg/h. Also on vancomycin. Patient getting hemodialysis as of now. 12/08/2023: Patient was seen for a follow-up. Patient's was also present. Per nursing report, with sedation holiday, patient opens eyes, but does not follow commands, does not track. Does not even response to yes/no questions. Patient does move right arm sometimes. Patient starts desynchronized ventilation therefore has to be put back on Precedex. Patient currently on Precedex 0.6 g per program per hour. Objective - Vital Signs Vital signs: Vital Signs Temp 97.7 F 01/01/24 08:00 Pulse 93 01/01/24 15:33 Resp 32 H 01/01/24 11:00 BP 103/71 12/31/23 02:00 Pulse Ox 99 01/01/24 11:00 FiO2 30 01/01/24 15:21 Intake & Output 12/31/23 01/01/24 01/01/24 18:59 06:59 18:59 Intake Total 3075.904 5782.868 1418.38 Output Total 1880 1055 1010 Balance 1195.904 423.515 7074.38 Weight 103.1 kg 103.1 kg Intake: IV 1843 1336 721 0.9 153 156 61 Anidulafungin 100 mg In 100 Sodium Chloride 0.9% 100 ml @ 84 mls/hr IVPB DAILY [facility] Rx#:[id number] Ceftolozane/Tazobactam 3 100 gm In Sodium Chloride 0.9 % 100 ml @ 100 mls/hr IV Q8H [facility] Rx#:[id number] DAPTOmycin 600 mg In 50 Sodium Chloride 0.9% 50 ml @ 100 mls/hr IVPB Q24H [facility] Rx#:[id number] Fat Emulsion 20% 250 ml 250 In Empty Bag 1 bag @ 21 mls/hr IV DAILY@1000 [facility] Rx#:[id number] Invasive Line 2 30 Potassium Chloride 10 meq 200 100 In Water For Injection 1 100ml.bag @ 100 mls/hr IVPB Q1H [facility] Rx#: [id number] TPN 990 1080 630 Intake, IV Titration 1142.904 186.779 4723.38 Amount Mvi, Adult No.4 with Vit 2005.5 K 10 ml Trace (Conc-1Ml/ Dose) 1 ml Potassium Acetate 40 meq In Amino Acid 5%-D15w+Lytes*E* 2, 000 ml @ 90 mls/hr IV . [id number] [facility] Rx#:[id number] Mvi, Adult No.4 with Vit 1039.5 K 10 ml Trace (Conc-1Ml/ Dose) 1 ml Sodium Acetate 18 meq Potassium Acetate 28 meq Magnesium Sulfate gm 1 gm Calcium Gluconate 1 gm Potassium Phosphate 9 mmol In Amino Acid 5%-D15w 1,000 ml @ 90 mls/hr IV .BY DURATION [facility] Rx#:[id number] propofoL 1,000 mg In 103.404 198.755 55.88 Empty Bag 1 bag @ 15 MCG/ KG/MIN 9.144 mls/hr IV . [id number] [facility] Rx#:[id number] TPN/PPN 90 TPN 90 Output: Gastric Drainage 400 100 Drainage 180 250 Right Abdomen 180 250 Urine 1300 1055 660 Other: Voiding Method Indwelling Catheter Indwelling Catheter Indwelling Catheter # Bowel Movements 0 ABP, PAP, CO, CI - Last Documented Arterial Blood Pressure 168/76 - Exam On examination patient is laying in the bed. Patient is intubated, with tracheostomy. Patient on propofol 20 mcg/kg/min. No seizure-like activity. Patient is somnolent at this time. Detailed examination deferred. Pupils are equal, round and reacting. Patient continues to be severely weak in the arms and legs. - Labs CBC & Chem 7: 01/02/24 05:00 01/02/24 05:00 Labs: Abnormal Lab Results - Last 24 Hours (Table) 12/31/23 12/31/23 01/01/24 Range/Units 18:01 23:19 04:20 WBC 12.1 H (3.8-10.6) k/uL RBC 2.39 L (4.30-5.90) m/uL Hgb 7.0 L (13.0-17.5) gm/dL Hct 22.0 L (39.0-53.0) % RDW 18.5 H (11.5-15.5) % Plt Count 69 L (150-450) k/uL Neutrophils # 8.9 H (1.3-7.7) k/uL ABG pCO2 (35-45) mmHg ABG O2 Saturation (94-97) % Hemoglobin (13.0-17.5) gm/dL Chloride (98-107) mmol/L Carbon Dioxide (22-30) mmol/L BUN (9-20) mg/dL Glucose (74-99) mg/dL POC Glucose (mg/dL) 201 H 203 H (70-110) mg/dL Calcium (8.4-10.2) mg/dL Iron (65-175) UG/DL TIBC (228-460) UG/DL % Saturation (15.00-50.00) Transferrin (204.0-354.0) mg/dL Ferritin (22.0-322.0) ng/mL 01/01/24 01/01/24 01/01/24 Range/Units 04:20 04:20 04:26 WBC (3.8-10.6) k/uL RBC (4.30-5.90) m/uL Hgb (13.0-17.5) gm/dL Hct (39.0-53.0) % RDW (11.5-15.5) % Plt Count (150-450) k/uL Neutrophils # (1.3-7.7) k/uL ABG pCO2 34 L (35-45) mmHg ABG O2 Saturation 98.5 H (94-97) % Hemoglobin 7.0 L* (13.0-17.5) gm/dL Chloride 120 H (98-107) mmol/L Carbon Dioxide 19 L (22-30) mmol/L BUN 44 H (9-20) mg/dL Glucose 140 H (74-99) mg/dL POC Glucose (mg/dL) (70-110) mg/dL Calcium 7.0 L (8.4-10.2) mg/dL Iron 13 L (65-175) UG/DL TIBC 105 L (228-460) UG/DL % Saturation 12.38 L (15.00-50.00) Transferrin 75.3 L (204.0-354.0) mg/dL Ferritin 642.0 H (22.0-322.0) ng/mL 01/01/24 Range/Units 11:50 WBC (3.8-10.6) k/uL RBC (4.30-5.90) m/uL Hgb (13.0-17.5) gm/dL Hct (39.0-53.0) % RDW (11.5-15.5) % Plt Count (150-450) k/uL Neutrophils # (1.3-7.7) k/uL ABG pCO2 (35-45) mmHg ABG O2 Saturation (94-97) % Hemoglobin (13.0-17.5) gm/dL Chloride (98-107) mmol/L Carbon Dioxide (22-30) mmol/L BUN (9-20) mg/dL Glucose (74-99) mg/dL POC Glucose (mg/dL) 181 H (70-110) mg/dL Calcium (8.4-10.2) mg/dL Iron (65-175) UG/DL TIBC (228-460) UG/DL % Saturation (15.00-50.00) Transferrin (204.0-354.0) mg/dL Ferritin (22.0-322.0) ng/mL Assessment and Plan Assessment: * Altered mental status, likely due to toxic metabolic encephalopathy. Patient had transiently improved, but now continues to be severely encephalopathic. 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 * Sepsis * Pneumonia, persistent, chest x-ray showing ongoing moderate right pleural effusion with adjacent atelectasis and/or consolidation. 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 Plan: * Patient continues to have significant metabolic encephalopathy from ongoing sepsis, pneumonia, head previous bacteremia. ID on board. On multiple antibiotics. * Patient not able to weaned off the ventilator. * Initial EEG on 12/08/2023: It revealed generalized slowing of severe degree. This is suggestive of generalized cerebral dysfunction as can be seen with toxic metabolic encephalopathy or related to diffuse structural brain about a day. Clinical correlation is recommended. Sporadic, periodic generalized sharp-appearing waves were seen. This may suggest underlying cortical irritability. No electrographic seizure was recorded. * Repeat EEG 12/12/2023 revealed limited study because of diffuse myogenic artifact. Background slowing is suggestive of severe encephalopathy. No epileptiform activity was seen. * Patient's Keppra was decreased to 250 mg twice daily on 12/25/2023 (from 500 mg twice daily). Would recommend tapering off Keppra, once mentation and sepsis improves. * Repeat EEG on 12/12/2023: Is abnormal. The study is limited because of diffuse myogenic artifact. The background slowing is suggestive of severe encephalopathy. Otherwise no focal slowing, epileptiform discharges or seizure on the EEG. * CT head performed 12/07/2023 revealed no acute intracranial process. Some atrophy. I personally reviewed CT head agree with the findings. * Patient is generalized weak. Patient has been ICU for extended period of time. At risk for critical illness myopathy. * For medical management as per critical care, ID and other specialties on board. * Patient being considered for possible palliative care, and changing CODE STATUS, as per report from critical care/IM.
[2024-01-02] MEDS: CEFTOLOZANE/TAZOBACTAM 3 GM in SODIUM CHLORIDE 0.9% 100 ML IV SCH (11:39)
[2024-01-02 11:40] LABS: HGB 6.5 gm/dL (13.0-17.5)
[2024-01-02] MEDS: HYDROmorphone 2 MG/ML 1 ML SYRINGE IVP SCH (11:42)
--- NOTE | 2024-01-02 11:45 | P.PN ---
Subjective Progress Note Date: 01/01/24 Patient seen and evaluated at bedside. Per nursing patient continue to have signficant drainage around tube. Objective - Vital Signs Vital signs: Vital Signs Temp 98.1 F 01/02/24 04:00 Pulse 93 01/02/24 11:19 Resp 32 H 01/02/24 07:00 BP 103/71 12/31/23 02:00 Pulse Ox 95 01/02/24 07:00 FiO2 30 01/02/24 10:55 Intake & Output 01/01/24 01/02/24 01/02/24 18:59 06:59 18:59 Intake Total 3414.38 1581.108 93 Output Total 6510 1055 100 Balance -3095.62 526.108 -7 Weight 103.1 kg 102.2 kg Intake: IV 1353 1306 93 0.9 73 36 3 Ceftolozane/Tazobactam 3 100 100 gm In Sodium Chloride 0.9 % 100 ml @ 100 mls/hr IV Q8H [facility] Rx#:[id number] DAPTOmycin 600 mg In 100 Sodium Chloride 0.9% 50 ml @ 100 mls/hr IVPB Q24H [facility] Rx#:[id number] Invasive Line 2 90 90 TPN 990 1080 90 Intake, IV Titration 2061.38 275.108 Amount Mvi, Adult No.4 with Vit 2005.5 K 10 ml Trace (Conc-1Ml/ Dose) 1 ml Potassium Acetate 40 meq In Amino Acid 5%-D15w+Lytes*E* 2, 000 ml @ 90 mls/hr IV . [id number] [facility] Rx#:[id number] propofoL 1,000 mg In 55.88 275.108 Empty Bag 1 bag @ 15 MCG/ KG/MIN 9.144 mls/hr IV . [id number] [facility] Rx#:[id number] Output: Gastric Drainage 150 Drainage 5300 40 Right Abdomen 300 40 wound vac 5000 Urine 1060 1015 100 Other: Voiding Method Indwelling Catheter Indwelling Catheter # Bowel Movements 0 ABP, PAP, CO, CI - Last Documented Arterial Blood Pressure 98/50 - Exam gen: nad cv: rrr pul: non labored on minimal vent settings abd: soft, min distended, previous surgical site demonstrates granulating tissue over dehissed wound j tube has significant bilious drainage around tube - Labs CBC & Chem 7: 01/02/24 09:30 01/02/24 05:00 Labs: Abnormal Lab Results - Last 24 Hours (Table) 01/01/24 01/01/24 01/01/24 Range/Units 11:50 17:33 18:30 RBC (4.30-5.90) m/uL Hgb (13.0-17.5) gm/dL Hct (39.0-53.0) % RDW (11.5-15.5) % Plt Count (150-450) k/uL ABG pCO2 34 L (35-45) mmHg ABG O2 Saturation 98.0 H (94-97) % Hemoglobin 7.0 L* (13.0-17.5) gm/dL Chloride (98-107) mmol/L Carbon Dioxide (22-30) mmol/L BUN (9-20) mg/dL Glucose (74-99) mg/dL POC Glucose (mg/dL) 181 H 177 H (70-110) mg/dL Calcium (8.4-10.2) mg/dL Triglycerides (0.00-149.00) mg/dL Crossmatch 01/02/24 01/02/24 01/02/24 Range/Units 00:16 04:50 05:00 RBC (4.30-5.90) m/uL Hgb (13.0-17.5) gm/dL Hct (39.0-53.0) % RDW (11.5-15.5) % Plt Count (150-450) k/uL ABG pCO2 34 L (35-45) mmHg ABG O2 Saturation 97.8 H (94-97) % Hemoglobin 6.7 L* (13.0-17.5) gm/dL Chloride 119 H (98-107) mmol/L Carbon Dioxide 20 L (22-30) mmol/L BUN 45 H (9-20) mg/dL Glucose 142 H (74-99) mg/dL POC Glucose (mg/dL) 189 H (70-110) mg/dL Calcium 7.1 L (8.4-10.2) mg/dL Triglycerides 293.00 H (0.00-149.00) mg/dL Crossmatch 01/02/24 01/02/24 01/02/24 Range/Units 05:00 09:30 09:30 RBC 2.28 L 2.21 L (4.30-5.90) m/uL Hgb 6.8 L* 6.5 L* (13.0-17.5) gm/dL Hct 20.9 L 20.3 L (39.0-53.0) % RDW 18.7 H 18.9 H (11.5-15.5) % Plt Count 72 L 83 L (150-450) k/uL ABG pCO2 (35-45) mmHg ABG O2 Saturation (94-97) % Hemoglobin (13.0-17.5) gm/dL Chloride (98-107) mmol/L Carbon Dioxide (22-30) mmol/L BUN (9-20) mg/dL Glucose (74-99) mg/dL POC Glucose (mg/dL) (70-110) mg/dL Calcium (8.4-10.2) mg/dL Triglycerides (0.00-149.00) mg/dL Crossmatch See Detail Assessment and Plan Assessment: 1. 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 Status post J-tube placement and revision for small bowel obstruction 2. Abdominal wound dehiscence status post wound VAC placement 3. Status post tracheostomy PLAN: -At this time no plan to exchange J-tube -Keep J-tube to drainage -Continue to hold tube feeds -Continue wound VAC -Continue TPN for nutrition support -Continue Tri[employer] barrier cream around J-tube Discussed w/ family and social work in detail, there is no surgical procedure that can be performed that will not cause more significant morbidity/mortality. Despite getting tpn and intermittent tube feeds patient is not healing. Time with Patient: Greater than 30
[2024-01-02] MEDS: LORazepam 2 MG/ML INJ IV SCH (11:46)
--- NOTE | 2024-01-02 12:14 | P.PN ---
Subjective Progress Note Date: 01/02/24 Principal diagnosis: Abdominal pain. This is a 73-year-old white male with history of chronic abdominal pain for the last 8 months has been treated with Protonix 40 mg daily for the last 3 months with no improvement. Patient had a 22 pound weight loss in the last [address] of the abdomen and pelvis 3 weeks ago showed thickening of the antral wall with pathological adenopathy posterior to the stomach suspicious of neoplasm. Today the patient underwent elective upper endoscopy to evaluate further, patient received IV sedation by anesthesia endoscope was inserted into the mouth, esophagus was intubated without any difficulty there was evidence of large amount of liquid and solid food noted in the stomach suggestive of gastric outlet obstruction. Scope could not be advanced through the pylorus, however in the prepyloric area there was a large superficial ulceration identified with multiple biopsies were done from this area. The body cardia and fundus could not adequately visualize because of large amount of retained food in the stomach. Scope was withdrawn back to the stomach and upon careful examination the mucosa of the antrum body and cardia as well as the fundus appeared normal. Procedure was being performed and biopsies were done patient threw up and subsequently became hypoxic there was clearly evidence of witnessed aspiration anesthesia intubated the patient, procedure was terminated, and the patient was transferred to the ICU, this consult was initiated. Patient is now on assist- control rate of 20 tidal volume 500 FiO2 70% PEEP of 10 ABG is pending, earlier ABG showed profound hypoxia patient is on propofol at 50 mcg/kg/min, next ABG is pending. Chest x-ray showed chronic changes without evidence of acute pulmonary disease. Patient was seen and examined today on 11/13/2023, remains in the ICU, intubated mechanically ventilated, on assist-control rate of 20 tidal volume 500 FiO2 50% and PEEP of 10 ABG showed a pO2 of 143 pCO2 47 pH of 7.28 hence PEEP was cut down to 6, and increased rate to 22. Patient is still requiring IV fluid at 100 cc/h/LR. Requiring norepinephrine at 0.08 mcg/kg/min he is also on propofol at 50 mg/kg/min antibiotics arce patient is receiving Zosyn. Chest x-ray is showing worsening infiltrates specially in the left lung. This could be related to aspiration pneumonia. Patient had witnessed aspiration during endoscopy/upper endoscopy.WBC count is 14 hemoglobin 7.6 basic metabolic profile is normal BUN is 26 creatinine 1.57 obviously the patient sustained some acute kidney injury baseline creatinine 0.86 patient had received fluids over the last 24 hours, remains on fluids at 100 cc/h Patient with seen and examined today on 11/14/2023, patient remains in the ICU, intubated and mechanically ventilated. Failed weaning trial yesterday and he became quite agitated and desaturated once he went off propofol. Had to be placed back on assist-control mode of mechanical ventilation and sedation. Today the patient is on assist-control rate of 22 tidal volume 500 FiO2 50% PEEP of 6. ABG showed a pO2 of 123 pCO2 51 pH of 7.32, and I cut down his FiO2 down to 45%, patient is receiving a unit of packed RBCs for hemoglobin of 6.9 today. Patient had an episode of A-fib RVR at 3 AM in the morning, seen by cardiology, and recommended patient goes on amiodarone. Still requiring norepinephrine at 0.05 mg/kg/min, he is on LR at 100 cc/h propofol at 50 mg/kg/min. Remains empirically on Zosyn for aspiration pneumonia. My plan today is transitioning the patient to Precedex, hopefully discontinue propofol, and at least give the patient a decent weaning trial or at least check weaning parameters before we proceed to weaning trial. Chest x-ray continues to show evidence of pneumonia mostly in the left lung and left lower lobe more specifically. Some pulmonary vascular congestion is noted with interstitial edema, small pleural effusion is also noted/left side. WBC count today is 12 hemoglobin 6.9 basic metabolic profile is normal bicarb is 25, BUN is 25 creatinine is improving down to 1.21 from 1.57 yesterday Patient was evaluated today on 11/15/2023, patient remains in the ICU, he was extubated yesterday, and his extubation was relatively uneventful. However the patient continues to have nasogastric tube in place, his pathology report came back showing non-Hodgkin's lymphoma, patient has gastric outlet obstruction, and the recommendation by GI is to consult surgery for a jejunostomy tube which is appropriate. Patient will be seen today by oncology and [facility]. In the meantime patient is comfortable, he is on 5 L nasal cannula he has LR running at 100 cc/h, he is remains on Zosyn for aspiration pneumonia remains on amiodarone which was started by cardiology for atrial fibrillation with RVR, presently in sinus rhythm. Cannot switch him to oral because of the fact that remains n.p.o., patient remains on TPN. WBC count is 10.7 hemoglobin 7.5 electrolytes are normal renal profile is normal, creatinine normalized to 0.96 Patient was evaluated today on 11/16/2023, remains in the ICU, on 5 L nasal cannula remains on amiodarone at 0.5 mg/min remains on LR at 100 cc/h, however his chest x-ray is showing some component of interstitial edema or could be findings related to his recent episode of aspiration/aspiration pneumonia, nonetheless the patient seems to be a bit symptomatic, he has intermittent cough and wheezing, I am recommending Lasix 40 mg IV push, cut down his IV fluid to 50 cc/h, continue Zosyn, patient will be placed on DuoNeb updrafts and on Solu- Medrol. Patient is scheduled to have jejunostomy-tube placement today. WBC count is 13 hemoglobin 7.7 basic metabolic profile is normal and renal profile is normal Patient was evaluated today on 11/17/2023, patient underwent uneventful placement of a jejunostomy tube yesterday, in the ICU on 5 L, patient is relatively stable, not in any distress, patient continues to have nasogastric tube in place although he did have a J-tube placed yesterday. Patient was seen by oncology for his non-Hodgkin's lymphoma involving the gastric outlet. Today's x-ray showed evidence of pneumonia/bilateral interstitial infiltrate/edema patient was given a dose of Lasix, I reminded the patient had an aspiration episode which was significant. And he required intubation mechanical ventilation for a few days.WBC count today is 9.1 hemoglobin 7.9 electrolytes are normal renal profile is normal hence I plan to transfer the patient out of the ICU to a cardiac floor. And hopefully discharge planning in the next 2 days for The patient was seen today November 18, 2023 in follow-up in the intensive care unit. He is currently sitting up in bed. Awake and alert in no acute distress. He is maintaining O2 saturations in the 90s on 5 L/min per nasal cannula. Glucose 177. Remains on DuoNeb inhalations and Solu-Medrol. Antibiotics in the form of Zosyn. He has a J-tube in place. He was initiated on vital AF 1.2 at 10 mL an hour with a goal of 82 mL/h The patient is seen today November 19, 2023 in follow-up in the intensive care unit. He is a regular medical floor overflow patient. He is currently sitting up in a chair. Awake and alert in no acute distress. He is maintaining O2 saturations in the 90s on 5 L/min per nasal cannula. No IV fluids. He denies any worsening shortness of breath, cough or congestion. He is having some issues with diarrhea. He remains on Zosyn. He is receiving vital AF at 55 mL/h with a goal of 82 mL/h. Glucose 161. Solu-Medrol, DuoNeb inhalations. The patient is seen today November 20, 2023 in follow-up on the regular medical floor. He is currently up in a chair at the bedside. Awake and alert in no acute distress. Denies any worsening shortness of breath, cough or congestion. He is maintaining O2 saturation in the 90s on 3 L/min per nasal cannula. He continues on Zosyn. Continues on bronchodilators and steroids. White count 12.3. Hemoglobin 9.0. Platelets 258. Glucose 168. He is not tolerating his tube feeds as he has developed diarrhea. C. difficile screen was negative. Abdominal series revealed cardiomegaly with left basilar acute infiltrate and/or atelectasis. Overall nonspecific bowel gas pattern. A small bowel obstruction needs to be considered. Progress note dated November 21, 2023. The patient is seen in room 517. The patient is currently on 3 L of oxygen. He continues on Zosyn. His biggest complaint has been abdominal discomfort and diarrhea. He did have a CT scan of the abdomen and pelvis. Current laboratory data includes a white count of 14.4, hemoglobin 8.8, hematocrit 28.7, and platelet count 229,000. Sodium 139, potassium 4.1, chlorides 103, CO2 30, BUN 42, creatinine 0.94. Glucose is 158. Calcium is 8.5. Progress note dated November 22, 2023. 73-year-old male seen in room 517. He currently is on 2 L of oxygen. Room air saturation was 89%. Chest CT shows bilateral patchy infiltrates. He continues on Zosyn. He is still not taking anything by mouth. No new laboratory data today other than a glucose of 138. Gram stain was negative. Progress note dated November 23, 2023. 73-year-old male seen in room 517. He is resting comfortably without com plaints. He continues on saline at 10 cc an hour, tube feedings with Pivot at 20 cc an hour, Zosyn, and 2 L by nasal cannula. He has had an uneventful night. Laboratory data today includes a white count 14.5, hemoglobin 9.7, hematocrit 31.4, and a platelet count of 242,000. Sodium 138, potassium 3.7, chlorides 106, CO2 26, BUN 39, creatinine 0.95. Glucose is 181. Calcium is 8.5. Sputum sampling was negative. Progress note dated November 24, 2023. 73-year-old male who is seen in room 517. The patient has been having significant abdominal discomfort, and went for a evaluation, ordered by surgery today, to determine whether or not the feeding tube, was in proper position, and whether or not there is anything acutely going on in the abdomen. He had been having diarrhea. He is on 3 L of oxygen. He has been here for 12 days. This is a patient, that had a prior EGD, aspirated, because of gastric outlet obstruction, and was diagnosis of non-Hodgkin's lymphoma. He is currently on Zosyn, DuoNebs, and Solu-Medrol. He has been NPO. Chest x-ray showed a left lower lobe infiltrate. Abdominal x-ray showed multiple air-fluid levels. CT of the abdomen showed multiple dilated small bowel loops, consistent with obstruction, pneumoperitoneum, ascites, and cholelithiasis. White count was 14.1, hemoglobin 8.9, hematocrit 29.5, and platelet count was 255,000. Glucose was 143. 11/25/2023, the patient is being seen in the intensive care unit. The patient is critically ill, n.p.o., he has an NG tube in place. Following the NG tube insertion, there was a total of 2.0 L of output and the patient's J-tube was also draining approximately 200 cc over the past 8 hours. Continues to have abdominal pain which is rather diffuse and the patient has direct abdominal tenderness. CAT scan of the abdomen was noted and was consistent with small bowel obstruction. The patient has a stomach that was inflated and in the same time there were multiple loops of small bowel distended with fluid. This extended to the pelvis. J-tube with contrast nondilated small bowel loops within the mid abdomen. Additional loops of small bowel were seen that was dilated. There was some contrast in the right lower quadrant and contrast was also in the cecum. No transition point was identified. The dilated loops of the bowel appeared to be in the proximal jejunum and distal to the duodenum. General surgery is on the case the patient will be taken to the operating room for another exploratory laparotomy. Noted the CAT scan of the abdomen also showed pneumoperitoneum and small amount of ascites and cholelithiasis. Hemodynamically, the patient is currently on normal saline at rate of 75 cc an hour. He is hypotensive and is going to be started on pressors. He is on 4 L of oxygen by nasal cannula. He also has sustained acute kidney injury. Blood work from today shows a rise in the creatinine which is currently up to 2.5 with a BUN of 57. Serum bicarb is at 14 with an anion gap of 11. The patient WBC count is at 8.2 with a hemoglobin of 12.3 and a platelet count of 188. Chest x- ray from this morning is showing a right-sided port and a stable left lung airspace disease and an NG tube being in place. The patient remains on IV Zosyn. The patient is receiving Dilaudid for pain control. The patient remains on IV Solu-Medrol 60 mg every 6 hours. It was noted that the patient's surgical wound over the port has dehisced and there is some serous drainage and erythema at the incision site. Awake and alert and communicating. Family at the bedside. No apparent signs of respiratory distress at this point. 11/26/2023, the patient is being seen in follow-up. Events from yesterday was noted and the patient was taken to the operating room for exploratory laparotomy. The patient was found to have large amount of free fluid noted in the abdomen and there was significant contamination. There was perforation of the small bowel with the balloon of the previously inserted jejunostomy tube penetrating through the perforation. As such, the tube was removed, abdominal washout was done. Small bowel resection was done and the patient had a nodular jejunostomy tube inserted. Postop, the patient was extubated he was unable to tolerate extubation and the patient was kept intubated on mechanical ventilator and he was brought back to the intensive care unit. He is currently postop day #1 following his small bowel resection. Abdominal surgical wound site is dry c lean and intact. This morning, the patient remains sedated on propofol which is currently running at 35 mcg/kg/min. He is on assist-control mode of mechanical ventilation at rate of 28, tidal volume of 550, FiO2 of 60% with a PEEP of 5. Blood gas from today shows a pH of 7.35 with a pCO2 44 and pO2 of 88. Chest x- ray shows adequate positioning of the orotracheal tube. The patient has a Mediport on the right and a subclavian triple-lumen catheter on the left and the patient has persistent bilateral pleural effusion and infiltrates in lung base bilaterally. Hemodynamically, the patient remains in shock. He has been on high-dose norepinephrine which is currently running at 0.28 mcg/kg/min and the patient is also on vasopressin at 0.03 units an hour. He is IV fluids are in the form of bicarb infusion running at rate of 150 cc an hour. He is in sinus tachycardia. NG tube output has been 250 cc over the past 8 hours and the output from the J-tube is minimal at this point in time. Urine output is quite diminished as the patient has also sustained acute kidney injury. Overall fluid balance is +4.9 L over the past 24 hours. The patient's white cell count of 5.7 with a hemoglobin 9.9 and platelet count of 172. BUN is 72 with a creatinine of 2.8 and sodium levels at 143. The calcium level is at 6.5. LFTs are normal. Triglyceride level is at 315. On 11/27/2023, the patient remains critically ill. Remains intubated and on mechanical ventilator, still awaiting shock which is essentially septic shock. Remains on propofol which is running at 50 mcg/kg/min. Remains on the mechanical ventilator, assist-control mode with rate of 28, tidal volume of 550 with an FiO2 of 60% with a PEEP of 5. Blood gas shows a pH of 7.29 with a pCO2 of 47 and pO2 of 78. The patient had a follow-up chest x-ray that showed lower lobe consolidation slightly worse on the right and the orotracheal tube is in a good location. Urine output is diminished in the order of 5 to 10 cc an hour and the patient is also developing progressive worsening renal function. Remains on normal citrate of 150 cc an hour and the patient was started on TPN which is running at 30 cc an hour. He has a triple-lumen catheter in his left subclavian. Overall fluid balance over the past 24 hours is +3.9 L. Output from the NG tube and the J-tube is minimal. Hemodynamically, he is hypotensive and norepinephrine running at 0.45 mcg/kg/min. Vasopressin is a physiologic dose. He received amiodarone and he remains on maintenance amiodarone of 0.5 mg/min and the patient continues to be in atrial fibrillation and is having episodes of tachycardia. The white cell count is at 13, hemoglobin 9.4 platelet count is pending. The patient's BUN is 83 with a creatinine of 3.7. Sodium is at 140 with a potassium level of 5.5 dropped down to 4.4 as the sample was hemolyzed. LFTs are normal. Abdominal wound is dry clean and intact. RAYA drainage is essentially serous at this point in time. 11/28/2023, the patient is being seen for a follow-up. The patient remains intubated on mechanical ventilator. This morning, the patient tolerated propofol drip running at 50 mcg/kg/min. The patient is on mechanical ventilator assist-control mode with rate of 28, tidal volume of 550, FiO2 55% with a PEEP of 5. Chest x-ray shows stable findings with lower lobe consolidations bilaterally. Blood gas shows a pH of 7.32 with a pCO2 38 and pO2 90. Neuropathy has improved and the patient is producing approximately 30 cc an hour and the overall input output balance is +3.3 L over the past 24 hours. The patient is still on pressors although his pressor requirements have improved since yesterday. He is on norepinephrine which is running at 0.05 mcg/kg/min and vasopressin physiologic dose. Also, the patient on amiodarone drip regarding his chronic ongoing atrial fibrillation. Amiodarone drip is running at 0.5 mg/min. Nevertheless, the rate is under much better control. Noted the patient was given a dose of digoxin 0.5 mg IV yesterday which helped with rate control. Remains on normal citrate of 150 cc an hour. Remains on TPN at 40 cc an hour. Output from the J-tube is fecal. Output from the NG tube is more gastric. Surgical wound site is dry clean and intact. Sputum Gram stain and culture showing Pseudomonas and Citrobacter. Note that the Citrobacter was intermediate resistance to Zosyn. This will be discussed further with infectious disease. Blood cultures are still pending for now. They have negative based on the most recent check. Blood work from today shows WBC count 11.2, hemoglobin 7.9 and platelet count of 46. Sodium is at 140, potassium is at 4.3, chloride is 114 with a bicarb of 18. He has 93 and the creatinine is 4.8. Serum random vancomycin level is at 25.7. On 11/29/2023, the patient is being seen for a follow-up. Remains intubated on the mechanical ventilator. The patient sedated on propofol which is running at 35 mcg/kg/min. Synchronous with mechanical ventilator. On today's evaluation, he is on assist-control mode with rate of 28, tidal volume of 550, FiO2 55% with a PEEP of 5. Chest x-ray shows lower lobe consolidation bilaterally worse on th e right and the orotracheal tube is in good location. The blood gas showed a pH of 7.34 with a pCO2 of 35 and a pO2 of 84. No significant orotracheal secretions. Hemodynamically improved compared to yesterday. In fact, the patient is on minimal norepinephrine that was discontinued earlier this morning. The patient has converted to normal sinus rhythm. Remains on amiodarone at 0.5 mg/min. Overall fluid balance over the past 24 hours is 2.4 L positive. Urine output has been adequate and the patient is currently on IV Lasix. Nevertheless, the patient has developed progressive worsening renal function. Creatinine is up to 5.3 on today's evaluation with a potassium level of 4.4. Serum bicarb is at 18 with an anion gap of 9. WBC count is at 8.1 with a hemoglobin of 7 and a platelet count of 32 which has dropped compared to earlier evaluation. The rest of the coagulation profile was normal from 11/28/2023. Fibrinogen level is slightly elevated. Sputum samples have shown a combination of Citrobacter and Pseudomonas aeruginosa. Based on cultures and sensitivities, the patient will be taken off his IV Zosyn and he will be switched to IV meropenem. Output from the J-tube is fecal. Output from the NG tube is gastric and surgical wound site is dry clean and intact. He is afebrile for now. Hemodynamically, the patient is doing better. He remains on TPN for nutritional support. IV fluids are also running at a rate of 75 cc an hour. Remains on vancomycin. 11/30/2023, the patient is being seen for a follow-up. The patient remains on propofol at 50 mcg/kg/min. Ventilator settings are essentially unchanged. The patient remains on assist-control mode with rate of 18, tidal volume of 400, FiO2 50% with a PEEP of 5. The blood gas showed a pH of 7.37 with a pCO2 of 43 and pO2 of 127. Chest x-ray shows no significant interval change. Patient remains on normal saline at rate of 75 cc an hour and TPN at rate of 35 cc an hour. Fluid balance is positive. Hemodialysis was performed yesterday and the second session of hemodialysis to be done today. The patient's urine output is in the order of 20 to 30 cc an hour. The patient has an NG output of 350 cc for yesterday and the drainage from the J-tube is in the order of 400 cc over the past 24 hours. The blood work shows a WBC count of 10.8, hemoglobin 8.1 and platelet count of 41. Platelet counts are essentially stable and slightly improved compared to yesterday. The sodium level is at 133, potassium is at 4.3, BUN is 93 with a creatinine of 3.6. LFTs are within normal limits. Albumin is down to 2.1. The patient is currently on no pressors. Norepinephrine and vasopressin are both discontinued and the patient remains in normal sinus rhythm. No other significant events overnight. Family has been updated on his condition. Antibiotic coverage is currently with IV meropenem. Vancomycin and Zosyn have been both discontinued. On 12/01/2023, the patient remains sedated on propofol which is running at 25 mcg/kg/min., Comfortable and synchronous mechanical ventilator. The patient remains on assist-control mode rate of 28, tidal volume of 550, FiO2 40% and PEEP of 5. Blood gas shows a pH of 7.49 with a pCO2 of 34 and pO2 of 121. Patient underwent hemodialysis yesterday. No plans for hemodialysis today the patient is producing urine output. Remains on TPN for nutrition support rate of 75 cc an hour. IV fluids are currently at KVO. The chest x-ray from today shows bilateral lower lobe consolidation worse on the right. No significant change in the volume status. The patient continues to have third spacing and edema in all 4 extremities. Nevertheless, urine output is adequate at this point in time and the patient remains on Lasix 80 mg IV every 12 hours. Remains NPO. NG tube and J-tube are both drainage. Output is noted. Remains on IV meropenem. Afebrile. Currently on no pressors. Blood work shows a WBC count of 11.4, hemoglobin of 8.1 and platelet count of 46. Sodium is at 131, potassium level is at 3.7, chloride 101 and bicarb is at 24. BUN is 84 with a creatinine of 3.6. Glucose of 228. LFTs are within normal limits. Patient was reevaluated today on 12/02/23, patient remains in the ICU, patient is familiar to my service, I saw this patient 3 weeks ago. Since then he had a very complicated hospital course, related to his jejunostomy tube dislodging and leaking and picture of abdominal sepsis and worsening pneumonia/ARDS. Patient had to be placed back on mechanical ventilation, and he is now intubated and mechanically ventilated. He is on assist-control rate of 20 tidal volume 550 FiO2 40% PEEP of 5 ABG showed a pO2 of 111 pCO2 38 pH of 7.43 and I cut down his FiO2 to 35% and increase his flow rate from 60-70. Patient remains on TPN at 75 cc/h he is on propofol at 25 mcg/kg/min patient is on Cleviprex which I added today for elevated blood pressure. Receiving Lasix 80 mg every 12 hours is also on Merrem as per infectious disease. Patient is on hemodialysis and being followed by nephrology. Patient required multiple abdominal surgeries since his initial admission. Chest x-ray continues to show worsening pneumonia involving both lungs, right more so than left, I suspect there may be a component of ARDS. His initial presentation was the presentation of aspiration pneumonia to begin with and that was 3 weeks agoWBC count is 10.3 hemoglobin 8.6 sodium 131 potassium 4 chloride 100 bicarb 23 BUN is 111 creatinine 4.02 blood sugar is 248. Albumin is 1.9 Patient was evaluated today on , patient remains in the ICU, intubated and mechanically ventilated. Patient is on assist-control rate of 20 tidal volume 550 FiO2 35% and PEEP of 5 ABG showed a pO2 of 99 pCO2 39 pH of 7.44 patient is undergoing hemodialysis today, and the plan is to remove 2 L. He is remains on propofol at 35 mcg/kg/min, remains on TPN at 75 cc/h. Remains on Merrem. Patient is not requiring any pressors today. Yesterday patient did not tolerate to be off sedation long enough, and today we tried the same sedation interruption, and the patient did not do well post interruption of sedation, became extremely agitated restless, tachycardic, and could not fully assess mental status off sedation. Hence the patient was placed back on AC mode of mechanical ventilation, and the plan is to continue the same supportive care measures. Family updated on his condition and most likely the patient will end up requiring tracheostomy in the next few days.WBC count is 8.5 hemoglobin 8.2 basic metabolic profile is relatively unremarkable BUN is 89 creatinine 3.45 chest x-ray today showed stable chest, suspect some right-sided pleural effusion which would likely improve with hemodialysis/ultrafiltration. X-ray of abdomen showed nonspecific nonobstructive bowel gas pattern Patient was seen today on 12/04/2023, remains in the ICU, intubated mechanically ventilated, on assist-control rate of 20 tidal volume 550 FiO2 35% PEEP of 5 ABG showed a pO2 of 112 pCO2 38 pH of 7.45, hence no changes were made in ventilator settings. Patient is on propofol at 35 mcg/kg/min he is also on IV fluid at KVO TPN at 75 cc/h. Remains on hemodialysis remains on Lasix 80 mg IV push twice daily, remains on Merrem. This x-ray continues to show the same findi ngs/airspace disease in both lungs, not much of a change in the last 2 days, however his oxygenation seems to be improved. WBC count is 7.1 hemoglobin 7.7. Electrolytes are normal, BUN is elevated 77 creatinine 3.32, patient is on hemodialysis. His condition was discussed today with the at bedside, and I do not believe the patient is ready to be weaned or extubated, however he seems to get extremely agitated when he goes off propofol, today I plan to transition propofol to Precedex, give him a trial on Precedex and determine whether the patient becomes more appropriate and at least ready for any weaning trials. Clinically I doubt if this will happen but we will go ahead and try Patient was evaluated today on 12/05/2023, remains in the ICU, intubated mechanically ventilated, not much of a change noted in the last 24 hours. Remains on assist-control of 20 tidal volume 550 FiO2 35% PEEP of 5 ABG showed a pO2 of 90 pCO2 37 pH of 7.48 hence chose not to change any of his ventilator settings. Yesterday the patient failed again trial of weaning, and he was never anywhere near ready to be weaned in spite of placing him on Precedex and off propofol, at 1 point the patient became extremely agitated restless and he was biting on the endotracheal tube could not fully awake the patient and determine improvement in his mental status. Hence patient was placed back on propofol yesterday and he remains on propofol today. He is on propofol at 25 mcg/kg/min he is on TPN at 75 cc/h surgery is considering starting his J-tube feedings today. Remains on hemodialysis remains on Merrem remains on Lasix 80 mg IV push twice daily overall not much of a change his chest x-ray is basically about the same showing bibasilar airspace disease. Today I had a discussion with the regarding the option of tracheostomy extremely reluctant to have it done yet. Said that the patient had multiple complications with previous surgeries and she is afraid that he is going to have another complication with the surgeryWBC count is 10.2 hemoglobin is 8, basic metabolic profile is normal sodium 130 BUN 70 creatinine 2.89 Patient was seen today on 12/06/23, remains in the ICU, intubated mechanically ventilated, his ventilator settings are assist-control rate 20 tidal volume 550 FiO2 35% and PEEP of 5 ABG showed a pO2 of 103 pCO2 36 pH of 7.47 patient opens eyes but does not follow any other instructions. He is now off propofol for the last 24 hours, he is maintained on Precedex at 0.4, TPN at 75 cc/h vital AF at 5 mL/h. Patient remains on Merrem, patient did not receive dialysis today because issues related to occluded dialysis catheter. Nonetheless the patient is making urine, and continues to improve with diuretics. 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 Blood sugar is 226. Family is at bedside, considering his overall mental status at this point, not quite ready to start checking weaning parameters, and is not ready for weaning. Nonetheless I plan to keep him on Precedex, and hopefully avoid narcotics and other sedatives. His mentation starts clearing a bit more, then will start trials of weaning parameters and/or weaning trials Patient was seen today on 12/07/2023, remains in the ICU, intubated and mechanically ventilated, on assist-control rate of 20 tidal volume 550 FiO2 35% PEEP of 5 ABG showed a pO2 of 83 pCO2 33 pH of 7.50 hence the tidal volume was cut down to 500. Patient remains off propofol remains off narcotics is only on Precedex for sedation at 0.6 mg/kg/h. He is on norepinephrine at 0.02 TPN at 75 cc/h IV fluid at KVO vital AF at 10 mL/h is also on Merrem. Neurologically I am concerned about this patient neurological status, does not seem to be waking up much, he opens his eyes but does not follow any instructions and spite of sedation hold for quite some time. Hence I am recommending a CT of the brain and multiple recommending a neurological consultation on this patient. WBC count is 18 7 hemoglobin is 8.4, basic metabolic profile is normal BUN is 75 creatinine 2.95, patient is back on dialysis, he had a new hemodialysis catheter placed yesterday by vascular surgery, and he will be restarted back on hemodialysis. CT of the brain done shortly after evaluating the patient showed no acute intracranial process chest x-ray basically about the same, continues to show small left and moderate right basilar infiltrate. Has not changed much over the last 1 week, patient remains on antibiotics. Patient was seen today on 12/08/2023, remains in the ICU, intubated and mechanically ventilated, remains on assist-control rate of 20 tidal volume 500 FiO2 35% PEEP of 5 ABG showed a pO2 of 88 pCO2 37 pH of 7.47 hence no changes were made in ventilator settings. Chest x-ray is showing slight increase in his right-sided pleural effusion, however his oxygenation seems to be about the same, and the patient is responding to Lasix given at 80 mg IV push every 12 hours, he is also doing well with hemodialysis he had 2 L removed yesterday and 2 L the day before. Hence will not recommend thoracentesis at this point. But the pleural effusion will need to be closely monitored. Patient remains off propofol he is on Precedex at 0.6 mcg/kg/h. For the last 2 days, and his mentation is not much different from baseline. Continues to open his eyes and does not follow any other instructions has the patient is clearly not ready for weaning trials or extubation. Brought up the issue of tracheostomy again with the , she is still reluctant to proceed with tracheostomy on him at this point. Patient remains on Merrem, remains on TPN but his enteral feeding will be advanced today to full goal, and if that happens then we will can discontinue TPN. Patient is receiving vital AF 1.2@10 mL/h at this point.WBC count is 19.3 hemoglobin 7.6. Basic metabolic profile is normal BUN is 72 creatinine 2.99 blood sugar ranging between 250 up to 334. 12/09/23 - patient seen at bedside today, remaining in the ICU, intubated and mechanically ventilated, remaining on assist-control rate of 20, tidal volume 500, FiO2 30%, PEEP of 5 and oxygen saturation of 100%. Patient is on day 27 of his hospital stay (admitted 11/11), day 15 of this current ICU stay (readmit to the ICU 11/24) and day 15 of this current period of time on the ventilator (placed 11/24). ABG showed pO2 100, pCO2 36, pH 7.47. Chest x-ray was deemed to be stable, however possibly with slight improvement noted on the left with a right-sided pleural effusion remains evident however the patient's oxygenation remains to be about the same. Continue to receive 80 mg IV Lasix every 12 hours and is receiving daily hemodialysis, in which he has been having 2 L removed the past couple of days, hemodialysis yet to occur today. His creatinine is 3.57 (compared to 2.99 yesterday) and BUN 98 (compared to 72 yesterday). Due to this response to diuresis and hemodialysis, no thoracentesis recommended at this point however pleural effusion will need to continue to be monitored. Patient shon off propofol, he is on Precedex at 0.4 mcg/kg/h. Due to his mentation remaining near baseline, neurology had been consulted who ordered an EEG which showed diffuse background slowing of his severe degree which is suggestive for generalized cerebral dysfunction and can be seen with toxic metabolic encephalopathy, as well as the presence of sporadic intermittent, some higher amplitude, sharply contoured waves of generalized distribution. Because of this per neurology's recommendation, patient started on Keppra 500 mg twice daily. The patient does seem to be having some improved mentation, with opening his eyes and responding to commands some of this morning. Spontaneous breathing trial to be attempted today, to see if the patient will be able to come off of mechanical ventilation. If that is unable to occur, discussed with the patient as well as his and one of his daughters that a tracheostomy would be the most appropriate next course of action due to the potential dangers of sustained endotracheal intubation for prolonged period of time. The , while reluctant, seem to acknowledge that this is the appropriate course of action. He remains receiving meropenem 1 g nightly. He remains on TPN 75 mL/h, which she has been on since 11/21 (18), but his enteral feeding has been vital 1.2 AF at 10 mL/h with a goal rate of 80 mL/h. Patient drained 60 mg of serosanguineous fluid from his RAYA. His WBCs increased to 21.5 (compared to 19.3 yesterday), hemoglobin dropped to 7.2 (compared to 7.6 yesterday), hematocrit dropped to 22.0 (compared to 22.9 yesterday) and patient procalcitonin remains elevated at 3.07. 12/10/23 - Patient seen at bedside today, remaining in the ICU, intubated and mechanically ventilated, remaining on assist-control rate of 20, tidal volume 500, FiO2 30%, PEEP of 5 and oxygen saturation of 100%. Patient is on day 28 of his hospital stay (admitted 11/11), day 16 of this current ICU stay (readmit to the ICU 11/24) and day 16 of this current period of time on the ventilator (placed 11/24). ABG showed pO2 93, pCO2 37, pH 7.47, showing evidence of a mild metabolic alkalosis. Chest x-ray today showed stable disease compared to yesterday. He received levo overnight due to atypical blood pressure, patient's TPN was up to 120 due to the change in formula. Patient is scheduled to undergo tracheotomy today (12/09) at 16:30. Per the nurse and the overnight staff patient continues to open his eyes and shows some responsiveness to commands. Per nephrology's recommendation dialysis to be held today due to the patient going for the tracheotomy later, as well as the dip in blood pressure seen after yesterday's dialysis session which required Levophed. Patient's Hgb this morning 6.6, will be given 1 unit today, which will be the second unit he has received during his hospital course. Patient's airway resistance noted to be 3.3 cm/L/s, static lung compliance shown to be 45 mL/cm H2O and dynamic compliance 33 mL/cm H2O. 12/11/23 - Patient seen at the bedside, remaining in the ICU, with a tracheotomy tube and mechanically ventilated while receiving dialysis. Patient remains on assist-control rate of 20, FiO2 30%, PEEP of 5 and has an oxygen saturation of 97%. Patient is on day 29 of the hospital stay (admitted 11/11), day 17 of his current ICU stay (readmitted to the ICU 11/24) and day 17 of his current period of time on the ventilator (placed 11/24). ABG today showed pO2 115, pCO2 38, pH 7.44 continuing to show evidence of a mild metabolic alkalosis. Chest x-ray today showed stable disease. Patient had tracheotomy placed yesterday afternoon (12/09) without any complications. Patient has had 3 consecutive days of attempting spontaneous breathing trials in an effort to wean the patient off the ventilator, all of which failed to this point. Beginning today the patient's antibiotics (meropenem) will be discontinued and we will begin weaning his propofol down from 25 mcg/kg/min. As the patient is weaned off of the propofol, 0.5 Dilaudid and 1 mg IV Ativan to be used every 6 hours as needed. Patient is continuing to receive normal saline 20 cc/h, and has a total of 200 mL of serosanguineous fluid from his RAYA drain. TPN to continue at a rate of 120 mL/h additionally tube feeds, which had been held due to the patient receiving s traight catheter yesterday, will be restarted today with an ultimate goal being to receive enteral nutrition at a rate of 80 mL/h. TPN to continue until able to increase the enteral nutrition to at least 50 mL/h, as per the dietitian's recommendation. Will be exploring the possibility of the patient being moved to select specialty. 12/12/23 - Patient seen at the bedside this morning, in ICU room 253, while receiving and EEG, no significant events overnight. Patient remains with tracheotomy and is mechanically ventilated on assist control with a rate of 20, tidal volume 500, FiO2 30%, PEEP of 5 with an oxygen saturation of 98%. Patient is on day 30 of the hospital stay (admitted 11/11), day 18 of his current ICU stay (readmitted to the ICU 11/24) and day 18 of his current period of time with mechanical ventilation (placed in 11/24). ABG today showed pO2 92, pCO2 36, pH is 7.49 continue to show signs of a combined respiratory and metabolic alkalosis. WBC 17.9, Hgb 7.4, Hct 22.6, PLT 151; sodium 133, potassium 4.0, HCO3 27, BUN 88, creatinine 2.96. Chest x-ray done today continuing to show patchy infiltrate throughout the right lung with layering effusion. Patient is continuing to receive normal saline 20 cc/h, continues to receive Dilaudid 0.5 mg IV push every 6 hours as needed, as well as Ativan 1 mg IV every 6 hours as needed. Patient is no longer maintained on propofol. TPN continues at a rate of 120 mm/h and EN vital AF at 30 mL/h with a goal of 40 mL/h. Once goal is reached, TPN can be discontinued and patient will be switched over to Nepro 50 mL/h. Following the patient having 3 consecutive days of attending spontaneous breathing trials and effort to wean, we will begin trying the patient with CPAP and pressure support in effort to wean, today's trial the patient will be placed on PS 5 and PEEP of 5 for 25-45 minutes, or as he is able to tolerate it. Disc ussed with the patient's the importance of continuing to wean the patient's with trials, in an effort to build up some of the strength in his lungs to better be able to tolerate breathing on his own. Will continue to evaluate for possible placement in a long-term acute care facility. 12/13/23 - Patient seen at the bedside this morning, in ICU room 253, with no significant events overnight noted. Patient remains with tracheotomy and is mechanically ventilated on assist control with a rate of 20, tidal volume 500, FiO2 30%, PEEP of 5 with an oxygen saturation of 98%. Patient is on day 30 one of the hospital stay (admitted to 11/11), day 19 of his current ICU stay (readmitted to the ICU 11/24) and day 19 of his current period of time with mechanical ventilation (placed 11/24). ABG today showed pO2 87, pCO2 36, pH 7.48 continue to show signs of a combined respiratory metabolic alkalosis. WBC 17.3, Hgb 8.0, Hct 25.3, PLT 191; sodium 136, potassium 4.1, BUN 116, creatinine 3.17. This x-ray done today continues to show stable disease. Patient had an EEG completed yesterday (12/11) which showed an abnormal EEG, study being limited because of diffuse myogenic artifact. Background slowing suggestive of severe encephalopathy. Otherwise no appreciable epileptiform discharges, focal slowing, or seizure noted during the exam. Patient continues to receive Dilaudid 0.5 mg IV push every 6 hours as needed, as well as Ativan 1 mg IV every 6 hours as needed. Patient's TPN has been stopped, he is not receiving Nepro at 50 mL/h, which is goal. Patient Solu-Medrol has been discontinued, patient now receiving 30 mg prednisone daily. Patient's trial yesterday with CPAP and pressure support with the patient was sent PS of 5 and PEEP of 5, patient tolerated 40 minutes well it was noted that his respiratory rate increased and his minute ventilation also increased during this time. Will continue with another weaning effort today and continue to reassess how the patient tolerates. He will be receiving hemodialysis today, with the plan to hold over the weekend and then reassess Saturday per nephrology. Additionally IV Lasix has been discontinued on this patient, nephrology did state that he may need to resume receiving the Lasix if the urine output tapers. Progress note dated December 14, 2023. The patient is seen today in room 253. The patient remains on the mechanical v entilator. His settings include volume assist-control, rate 20, tidal volume 500, FiO2 30%, PEEP of 5. Blood gases show pO2 of 76, pCO2 of 36, pH of 7.47. The patient is getting saline at 10 cc an hour, and Nepro at 50 cc an hour which is goal. The patient will go back on pressor support of 5 and CPAP of 5 today. Yesterday, he spent 2-1/2 hours on pressure support. The patient did have a tem perature last night. He discussed some purulent drainage at the wound site. I have asked surgeon to come back and see the patient. In addition, the nurse will get blood, urine, sputum, and wound cultures going. He is not on any antibiotics. We will check a procalcitonin level. White count of 16.7, hemoglobin 8.1, hematocrit 24.5, platelet count is normal. Sodium 135, potassium 3.9, chlorides 103, CO2 24, BUN 106, creatinine 3.04. Calcium is 7.1. Magnesium is 2.0. Urine is yellow, with 1+ protein, 6 WBCs, and rare bacteria. Chest x-ray shows a stable chest x-ray, which is largely unchanged. Progress note dated December 15, 2023. 73-year-old male seen again in room 253. The patient remains on mechanical ventilator. Blood gases show pO2 of 78, pCO2 of 36, pH of 7.47. The patient is getting saline at KVO, and Nepro at 50 cc an hour which is goal. The patient did a spontaneous breathing trial yesterday, and went about 6 hours on PSV 5, CPAP of 5. The patient's procalcitonin level was elevated at 1.92. We added back Zosyn. Yesterday we did sputum, blood, urine, and wound cultures. The patient will have another spontaneous breathing trial today. Current labs include a white count 16.3, hemoglobin 7.5, hematocrit 22.6, and a normal platelet count. Sodium 138, potassium 3.5, chlorides 105, CO2 24, BUN 125, and creatinine 3.22. Glucose is 220. Calcium is 6.9. Chest x-ray shows a right- sided pleural effusion, and some similar changes, to the previous x-ray. This is a 73-year-old white male with history of chronic abdominal pain for the last 8 months has been treated with Protonix 40 mg daily for the last 3 months with no improvement. Patient had a 22 pound weight loss in the last [address] of the abdomen and pelvis 3 weeks ago showed thickening of the antral wall with pathological adenopathy posterior to the stomach suspicious of neoplasm. Today the patient underwent elective upper endoscopy to evaluate further, patient received IV sedation by anesthesia endoscope was inserted into the mouth, esophagus was intubated without any difficulty there was evidence of large amount of liquid and solid food noted in the stomach suggestive of gastric out let obstruction. Scope could not be advanced through the pylorus, however in the prepyloric area there was a large superficial ulceration identified with multiple biopsies were done from this area. The body cardia and fundus could not adequately visualize because of large amount of retained food in the stomach. Scope was withdrawn back to the stomach and upon careful examination the mucosa of the antrum body and cardia as well as the fundus appeared normal. Procedure was being performed and biopsies were done patient threw up and subsequently became hypoxic there was clearly evidence of witnessed aspiration anesthesia intubated the patient, procedure was terminated, and the patient was transferred to the ICU, this consult was initiated. Patient is now on assist- control rate of 20 tidal volume 500 FiO2 70% PEEP of 10 ABG is pending, earlier ABG showed profound hypoxia patient is on propofol at 50 mcg/kg/min, next ABG is pending. Chest x-ray showed chronic changes without evidence of acute pulmonary disease. 12/20/2023, the patient is being seen for a follow-up. More alert and awake compared to yesterday. He is able to move his fingers and toes on today's evaluation. Following commands. Nevertheless, his J tube has been clogged and was unable to utilize the tube that has been some leaks around the tube. No abdominal distention. No nausea or emesis. Hemodynamically stable. Will undergo hemodialysis today. He remains on pressure control mode of mechanical ventilation at rate of 16, pressure of 10, +5 PEEP with an FiO2 of 30%. Chest x-ray from today is essentially unchanged with a stable cavity in his right upper lobe. White cell count of 15.7, hemoglobin 7.2, platelet count is 203, blood gas showed a pH of 7.49 with a pCO2 of 33 and pO2 of 73. BUN is 88 with a creatinine 1.89 and sodium is at 141 with a potassium level of 4.1. He is producing adequate amount of urine output. Fluid balance has been -900 cc over the past 24 hours. Normotensive. Remains on a combination of Zosyn and daptomycin. Remains on Levemir insulin 24 units daily. This is currently on hold as the patient has not been able to obtain enteral feeding. Wound VAC still in place. 12/21/2023, the patient remains on the mechanical ventilator. Overnight, the patient experienced discomfort in his abdomen and he was restless. Based on that, the patient was placed on a higher dose of Precedex which is currently running at 0.6 mcg/kg/h. The patient was also asynchronous with the mechanical ventilator and based on that, the patient was switched to an AC mode and currently is at a rate of 16, tidal volume of 400, FiO2 of 30% with a PEEP of 5. The patient is adequately sedated for now. Chest x-ray remains unchanged. Tracheostomy tube in place and the patient is having increased amount of respiratory secretions. J tube needs to be replaced today and this will be done by his general surgery as the tube remains clogged. Urine output is low order of 30 cc an hour. Afebrile. Remains on Zosyn and daptomycin. White cell count is 16.9, hemoglobin 7.4 and a platelet count of 280. Blood gas from today showed a pH of 7.46 with a pCO2 of 36 and pO2 of 82. Sodium levels of 144, BUN is 19 with a creatinine of 2.2 and a serum bicarb is at 23. The abdominal wound remains unchanged. RAYA drain is serosanguineous. 12/22/2023, patient remains on Precedex at 0.4 mcg/kg/min. Arousable. Communicates. Profoundly weak. Remains on the mechanical ventilator with a rig ht lung abscess. SIMV mode mode rate of 16, tidal volume of 400, FiO2 30% with a PEEP of 5, with a pressure support of 8. Blood gas showed a pH of 7.46 with a pCO2 of 32 and a pO2 of 82. Chest x-ray remains unchanged with a right upper lobe cavitating lesion/opacity and a suspected lung abscess. This is rated Pseudomonas and the patient remains on IV Zosyn. He remains on daptomycin. Urine output is in order of 50 cc an hour.. The J-tube was unplugged yesterday. Nevertheless, the tube itself is malfunctioning and there is drainage around the tube requiring dressing changes the dressings being soakedConstantly. The patient's white cell count is 12.3 with a hemoglobin 7.7. Sodium is at 149, BUN 91 with a creatinine of 2.3. Bicarb is at 20. Undergoing hemodialysis periodically. Last hemodialysis was on 12/21/2023. Currently NPO. Abdominal wound is clean and the patient has a wound VAC in place. RAYA drain output is serosanguineous. Patient was seen today on 12/23/2023, remains in the ICU, intubated and mechanically ventilated. Patient is on IMV with pressure support/IMV 16, pressure support of 8, tidal volume 400, PEEP of 5. Patient seems to be doing well with that kind of mode of mechanical ventilation, ABG showed a pO2 of 76 pCO2 28 pH of 7.50. I changed his rate from 16-8 kept him otherwise on the same ventilator settings. Plan to gradually go down on the IMV rate until we can get him on pressure support of 8 and CPAP. Patient is requiring Precedex at 0.4 m cg/kg/h, he is on D5W at 50 cc/h. Remains on antibiotics in the form of daptomycin and Zosyn, chest x-ray continues to show bilateral airspace disease and right upper lobe lung abscess. Continues to have a bit of a leak from his J-tube being addressed by surgery has a wound VAC, and he had a RAYA drain. Mentation arce the patient is a bit more appropriate, opens his eyes, follows very simple instructions, seems to comprehend. Patient has a left brachial PICC line, he also has a left groin hemodialysis catheter. WBC count is 10.1 hemoglobin is 7 sodium is 149 potassium 4 chloride is 121 BUN is 86 creatinine 2.31. Blood sugar is 173. Remains on enteral feeding via J-tube, a bit of a leak is noted, and surgery is to address this. Sputum cultures have grown Klebsiella and Pseudomonas and remains on proper antibiotics Patient was seen and examined today on 12/24/2023, patient remains in the ICU, and mechanically ventilated. On IMV mode of 8 pressure support of 8 tidal volume 400 FiO2 30% and PEEP of 5 ABG showed a pO2 of 81 pCO2 32 pH of 7.45. Patient remains on daptomycin and Zosyn, remains on Precedex at 0.4 mcg/kg/h intermittently receiving Dilaudid for pain. Feeding arce is presently on hold, patient had a leak around the jejunostomy tube, surgery is recommending a trick le feed or TPN if could not use the J-tube. Patient is arousable follows simple instructions, and today I had a chance to get rid of the IMV mode, and I am recommending a pressure support of 8 and CPAP. For the last few hours the patient has been tolerating this mode of mechanical ventilation, however he is not quite ready to go to [facility] at this point. Chest x-ray continues to show significant opacity in the right upper lobe and airspace disease in the right lower lobe. Previously patient had a CT of the chest showing right upper lobe abscess. Again he remains on Zosyn and daptomycin.Labs today showed WBC count of 10.6 hemoglobin 7.8 sodium is 147, patient is now on D5W at 100 cc an hour his bicarb is 19 BUN 74 creatinine 2.08, gradually improving, his last hemodialysis was on the , nephrology is considering removing his dialysis catheter in the left groin and I believe that is appropriate patient was seen and examined today on 12/25/2023, remains in the ICU, intubated and mechanically ventilated. Patient had to be placed back on assist-control mode of mechanical ventilation yesterday, mostly because he developed significant agitation and restlessness, and ongoing persistent cough with some air leak from the cough of that tracheostomy. Patient had to be sedated and he was placed on propofol and he remains on propofol at 50 mcg/kg/min. Maximal dose of Precedex yesterday could not calm him down, hence we had to transition him from pressure support/CPAP mode of mechanical ventilation to assist-control mode of mechanical ventilation and fully sedated him with propofol replacing Precedex. Today the patient is sedated, he is on assist-control rate of 16 ti sierra volume 400 FiO2 30% PEEP of 5 ABG showed a pO2 of 98 pCO2 30 pH of 7.45 chest x-ray is basically the same showing significant airspace disease in the right upper lobe and right lower lobe. Remains on daptomycin and Zosyn. His IV fluid was transitioned to D5 4 5 from D5W sodium today is 141. His urine output is about 40 to 50 cc/h, renal profile is improving with steady trending of creatinine down. Patient continues to have leakage around the jejunostomy tube. Patient is being followed by surgery no specific recommendation made except to continue the same and except the leak as it isLabs today showed WBC count of 11.5 hemoglobin 8.2 basic metabolic profile is normal BUN is 60 creatinine down to 1.81 Patient seen today on 12/26/2023, remains in the ICU intubated mechanically ventilated sedated patient is on assist-control rate of 16 tidal volume 400 FiO2 30% PEEP of 5 ABG showed a pO2 of 82 pCO2 34 pH of 7.43. Patient is now on TPN at 30 cc/h propofol at 50 mcg/kg/min hemoglobin is down to 6.8 today and he is receiving a unit of packed RBCs. His IV fluids at 50 cc/h in the form of 0.9 normal saline. He was last night on a small dose of norepinephrine at 0.01 mcg/kg/min and is presently on hold. Antibiotics arce patient is on Zosyn daptomycin and Eraxis. Chest x-ray continues to show significant airspace disease involving the right upper lobe and right lower lobe not much of a change noted on the chest x-ray. Clinically the patient is about the same, today I plan to discontinue propofol, arrange for the patient to go on Precedex, and assess mental status off sedation. If tolerated, may transition the patient again to pressure support and CPAP type of mechanical ventilation, but he is not ready to go to that transition yet. WBC count is 11.6 hemoglobin 6.8. ABG today showed a pO2 of 82 pCO2 34 pH of 7.43 potassium is 3.3 being addressed accordingly BUN is 53 creatinine 1.84 Patient was evaluated today on 12/27/2023, remains in the ICU intubated and mechanically ventilated. Patient is presently on IMV mode of mechanical ventilation with pressure support rate of 16 pressure support 14 tidal volume 400 FiO2 30% and PEEP of 5 ABG showed a pO2 of 99 pCO2 31 pH of 7.44. Intermittently the patient has been experiencing episodes of extreme agitation and restlessness he is on Precedex at 0.5 mcg/kg/h. Patient is on IV fluid 0.9 normal saline at 50 cc/h and is also receiving TPN. Remains on Eraxis daptomycin and Zosyn patient is intermittently requiring Dilaudid, Ativan does not seem to help his agitation and restlessness. But Dilaudid does hence I would recommend 0.5 mg every 2-3 hours as needed for agitation. Patient has good urine output roughly about 100 cc/h. Continues to have leakage around the jejunostomy tube, and patient is undergoing the J-tube exchange today. Family is at bedside, seems to be quite anxious about his overall condition, and I explained to the that we are doing the best we can considering his critical illness situation and critical illness polyneuropathy. Patient is profoundly weak, and weaning the patient from mechanical ventilation is almost impossible. At least not at this point yet WBC count is 10.9 hemoglobin is 8.1 basic metabolic profile is normal BUN is 46 creatinine 1.90 patient has been off hemodialysis since the . Chest x-ray continues to show stable findings with right upper lobe opacity and right lower lobe opacity and possibly a small right-sided pleural effusion Was evaluated today on 12/28/2023, patient remains in the ICU, intubated and mechanically ventilated, on IMV mode of mechanical ventilation rate set at 16 he is on pressure support of 14 tidal volume 400 FiO2 30% and PEEP of 5 ABG showed a pO2 of 113 pCO2 31 pH of 7.43. No major events overnight, patient is still requiring Precedex at 0.7 mcg/kg/h. He is on TPN as we could not use his jejunostomy tube, no jejunostomy tube was done yesterday, IV fluid is 0.9 at 50 cc/h remains on TPN at 65 cc/h patient is on Eraxis daptomycin and Zosyn. Chest x-ray is showing improvement in his right upper lobe airspace disease/lung abscess and there is a slight improvement in his right lower lobe opacity. Kathryn ent is arousable but does not follow any instructions, patient gets agitated easily if aroused and he started gagging on the tracheostomy tube. Family is at bedside, again updated on his condition. WBC count is 7.6 hemoglobin 7.9. Basic metabolic profile is normal BUN is 45 creatinine down to 1.51 patient has not had any dialysis since 12/17, his renal functioning and urine output continues to improve, hence I am strongly recommending removing his dialysis catheter Patient was seen on 12/29/2023, remains intubated and mechanically ventilated, in the ICU, on IMV of 16 tidal volume 400 FiO2 30% PEEP of 5 ABG showed a pO2 of 105 pCO2 31 pH of 7.45. Remains on Precedex at 0.8 mcg/kg/h, remains on TPN at 65 cc/h IV fluid 0.45 at 50 mL/h remains on multiple antibiotics and antifungal including Eraxis daptomycin and Zosyn. His hemodialysis catheter has been removed, urine output has been excellent renal functioning is improving chest x- ray is showing improvement in his right upper lobe airspace disease/pulmonary abscess. Right lower lobe seems about the same with chronic opacity and possibly some small right-sided pleural effusion. Family is at bedside, patient is arousable but does not follow any instructions. Gets extremely restless and agitated easily hence patient is receiving Dilaudid which seems to be working much better for this patient than benzodiazepines. And we are trying to avoid Ativan, trying to avoid any propofol as much as possible. I believe his drainage from the jejunostomy tube is becoming less and less, hence we could start considering early next week arrangement to possibly transfer the patient to a select care specialty. In the meantime I am recommending that we go down on the IMV rate by 2 every 2 hours the goal is pressure support of 14 and IMV of 8. Progress note dated December 30, 2023. This is a 73-year-old male who is now been in the hospital for 48 days. The patient was admitted back on November 11. Currently, he is seen in the intensive care unit, room 253. The patient is currently on synchronized IMV mode, rate of 8, pressure support of 14, PEEP of 5, FiO2 30%, and a backup tidal volume of 400 cc. Blood gases showed a pO2 of 87, pCO2 of 31, and a pH of 7.42. The patient will be switched back to the volume assist-control mode, as he is not ready to be weaned. His minute volume is nearly 18 L/min. He is breathing at a rate of about 40 times per minute. He currently is on Precedex 0.8 mics per kilogram per minute, TPN at 90 cc an hour, and half-normal saline at 50 cc an hour. The patient continues on Zerbaxa, Eraxis, and daptomycin. White count 11.5, hemoglobin 8.1, hematocrit 25, platelet count of 78,000. Sodium 142, potassium 4.2, chlorides 119, CO2 20, BUN 42, and creatinine 1.22. Glucose is 178. Albumin is 1.9. Sputum from December 24 shows evidence of Citrobacter freundii and Pseudomonas aeruginosa. Blood cultures from the same day were positive for Staphylococcus. Chest x-ray shows extensive pleural-parenchymal opacities, in both lungs, and the chest x-ray is largely unchanged from the pre vious days x-ray. Progress note dated December 31, 2023. 73-year-old male now here in the hospital for 49 days. The patient was admitted way back on November 11. He is seen today in room 253. Family members are at the bedside. The patient currently is on volume assist-control, rate 32, tidal volume 400, FiO2 30%, PEEP of 5. Blood gases show pO2 of 94, pCO2 of 35, pH is 7.40. Unfortunately, the patient is not synchronous with the ventilator, and so we switched to pressure regulated volume control or VC plus. We set an inspiratory time at 0.8 seconds, and the targeted tidal volume of 450 cc. The patient is on TPN at 70 cc an hour, saline at KVO, propofol at 40 mcg/kg/min. The patient continues on Eraxis, daptomycin, and Zerbaxa. Current labs include a white count 12.8, hemoglobin 7.3, hematocrit 22.4, and a platelet count of 67,000. Sodium 140, potassium 3.6, chlorides 119, CO2 20, BUN 43, creatinine 1.15. Glucose is 223. Calcium is 6.8. Today's chest x-ray is largely unc hanged. Progress note dated January 01, 2024. 73-year-old male seen again in room 253. The patient has not been in the hospital for 50 days. The patient continues on the mechanical ventilator. He is on pressure regulated volume control, or VC plus. His target tidal volume is 450 cc and his inspiratory time RTI is 0.8 seconds. His respiratory rate is 32. PEEP is 5, and FiO2 is 30%. Blood gases show pO2 of 98, pCO2 of 34, and a pH of 7.40. The patient continues on propofol at 15 mcg/kg/min, and TPN at 90 cc an hour. The patient also continues on Zerbaxa, daptomycin, and Eraxis. White count is 12.1, hemoglobin 7, hematocrit 22.0, and platelet count 69,000. Sodium 141, potassium 4.3, chlorides 120, CO2 19, BUN 44, creatinine 1.11. Calcium is 7. Chest x-ray shows a right-sided pleural effusion, with adjacent atelectasis and/or consolidation. There is a small left-sided pleural effusion as well. Progress note dated January 02, 2024. 73-year-old male seen again in room 253. The patient has not been here in the hospital for 51 days. He remains on mechanical ventilator. He is on the pressure regulated volume control modality no also noted his VC plus. The patient is on a rate of 32 breaths/min, PEEP of 5, FiO2 30%, inspiratory time her TI was 0.8, and a target tidal volume of 450 cc. Blood gases show pO2 of 90, pCO2 34, pH is 7.40. The patient is receiving TPN at 90 cc an hour, propofol at 20 mcg/kg/min, and has received a total of 6 units of packed red blood cells. The patient is going to get Dilaudid and Ativan scheduled. Dilaudid will be 1 mg every 2 hours, and Ativan 1 mg every 6 hours. The patient continues on daptomycin, Eraxis, and Zerbaxa. White count is 10, hemoglobin 6.5, hematocrit 20.3, platelet count 83,000. Sodium 140, potassium 4.6, ch lorides 119, CO2 20, BUN 45, creatinine 1.08. Most recent cultures are from December 24, showing evidence of Citrobacter from the and Pseudomonas aeruginosa, in the sputum. Blood cultures, on the same day, show evidence of Staphylococcus species. Chest x-ray shows extensive pleural-parenchymal opacities in the right hemithorax, and patchy opacity at the left lower lobe area. Objective - Vital Signs Vital signs: Vital Signs Temp 98.1 F 01/02/24 04:00 Pulse 93 01/02/24 11:19 Resp 32 H 01/02/24 07:00 BP 103/71 12/31/23 02:00 Pulse Ox 95 01/02/24 07:00 FiO2 30 01/02/24 10:55 Intake & Output 01/01/24 01/02/24 01/02/24 18:59 06:59 18:59 Intake Total 3414.38 2563.741 4923 Output Total 6510 1055 100 Balance -3095.62 772.267 4531 Weight 103.1 kg 102.2 kg Intake: IV 1353 1306 93 0.9 73 36 3 Ceftolozane/Tazobactam 3 100 100 gm In Sodium Chloride 0.9 % 100 ml @ 100 mls/hr IV Q8H [facility] Rx#:[id number] DAPTOmycin 600 mg In 100 Sodium Chloride 0.9% 50 ml @ 100 mls/hr IVPB Q24H [facility] Rx#:[id number] Invasive Line 2 90 90 TPN 990 1080 90 Intake, IV Titration 2060.38 536.082 6960 Amount Mvi, Adult No.4 with Vit 2030 K 10 ml Trace (Conc-1Ml/ Dose) 1 ml Potassium Acetate 40 meq In Amino Acid 5%-D15w+Lytes*E* 2, 000 ml @ 90 mls/hr IV . [id number] [facility] Rx#:[id number] propofoL 1,000 mg In 55.88 275.108 Empty Bag 1 bag @ 15 MCG/ KG/MIN 9.144 mls/hr IV . [id number] [facility] Rx#:[id number] Blood Product 0 Rc As-1 Unit 0 [id number] Output: Gastric Drainage 150 Drainage 5300 40 Right Abdomen 300 40 wound vac 5000 Urine 1060 1015 100 Other: Voiding Method Indwelling Catheter Indwelling Catheter # Bowel Movements 0 ABP, PAP, CO, CI - Last Documented Arterial Blood Pressure 98/50 - Exam No acute distress, somewhat lethargic, in no acute distress, with a midline tracheostomy tube. HEENT examination is grossly unremarkable. Neck supple. Full range of motion. No adenopathy thyromegaly or neck vein dis tention. Midline tracheostomy tube noted. Cardiovascular examination reveals regular rhythm rate. S1-S2 normal. No S3 or S4. No discernible murmur noted. Lungs reveal mild scattered rhonchi. No wheezes or crackles. Breath sounds equal. Abdomen soft, without bowel sounds. Midline incision, there is for the most part intact, although there is some purulence noted, with some minimal deh iscence Extremities are intact. No cyanosis clubbing or edema. Skin is without rash or lesion. Neurologic examination is difficult to assess. - Labs CBC & Chem 7: 01/02/24 09:30 01/02/24 05:00 Labs: Abnormal Lab Results - Last 24 Hours (Table) 01/01/24 01/01/24 01/02/24 Range/Units 17:33 18:30 00:16 RBC (4.30-5.90) m/uL Hgb (13.0-17.5) gm/dL Hct (39.0-53.0) % RDW (11.5-15.5) % Plt Count (150-450) k/uL ABG pCO2 34 L (35-45) mmHg ABG O2 Saturation 98.0 H (94-97) % Hemoglobin 7.0 L* (13.0-17.5) gm/dL Chloride (98-107) mmol/L Carbon Dioxide (22-30) mmol/L BUN (9-20) mg/dL Glucose (74-99) mg/dL POC Glucose (mg/dL) 177 H 189 H (70-110) mg/dL Calcium (8.4-10.2) mg/dL Triglycerides (0.00-149.00) mg/dL Crossmatch 01/02/24 01/02/24 01/02/24 Range/Units 04:50 05:00 05:00 RBC 2.28 L (4.30-5.90) m/uL Hgb 6.8 L* (13.0-17.5) gm/dL Hct 20.9 L (39.0-53.0) % RDW 18.7 H (11.5-15.5) % Plt Count 72 L (150-450) k/uL ABG pCO2 34 L (35-45) mmHg ABG O2 Saturation 97.8 H (94-97) % Hemoglobin 6.7 L* (13.0-17.5) gm/dL Chloride 119 H (98-107) mmol/L Carbon Dioxide 20 L (22-30) mmol/L BUN 45 H (9-20) mg/dL Glucose 142 H (74-99) mg/dL POC Glucose (mg/dL) (70-110) mg/dL Calcium 7.1 L (8.4-10.2) mg/dL Triglycerides 293.00 H (0.00-149.00) mg/dL Crossmatch 01/02/24 01/02/24 Range/Units 09:30 09:30 RBC 2.21 L (4.30-5.90) m/uL Hgb 6.5 L* (13.0-17.5) gm/dL Hct 20.3 L (39.0-53.0) % RDW 18.9 H (11.5-15.5) % Plt Count 83 L (150-450) k/uL ABG pCO2 (35-45) mmHg ABG O2 Saturation (94-97) % Hemoglobin (13.0-17.5) gm/dL Chloride (98-107) mmol/L Carbon Dioxide (22-30) mmol/L BUN (9-20) mg/dL Glucose (74-99) mg/dL POC Glucose (mg/dL) (70-110) mg/dL Calcium (8.4-10.2) mg/dL Triglycerides (0.00-149.00) mg/dL Crossmatch See Detail Assessment and Plan Assessment: Acute hypoxemic respiratory failure with failure to wean from mechanical ventilation, S/P tracheostomy/PEG tube on December 10, 2023. Respiratory failure, requiring reintubation, on November 25, 2023. Acute hypoxic respiratory failure requiring intubation/mechanical ventilation secondary to aspiration during EGD on 11/12/2023. Patient was extubated on 11/14/2023. S/P J-tube placement 11/16/2023, which continues to leak. Septic shock. Acute kidney injury secondary to sepsis, and ATN. Acute bowel obstruction, diagnosed via CT scan, November 24, 2023. Acute aspiration pneumonia. Acute aspiration during upper endoscopy most likely secondary to gastric outlet obstruction secondary to non-Hodgkin's lymphoma. Chronic abdominal pain, secondary to B-cell lymphoma. Unexplained weight loss most likely secondary non-Hodgkin's lymphoma involving the stomach. Paroxysmal atrial fibrillation. Chronic anemia. Plan: Plan dated November 21, 2023. The patient is seen today in room 517. The patient is on 3 L of oxygen. He continues on Zosyn. Continues on tube feeds. He had a CT scan of the abdomen and pelvis. His respiratory status is improved. We will continue to follow. Prognosis is guarded. Labs, x-rays, medications are reviewed. The patient is apparently scheduled for an outpatient PET scan. Plan dated November 22, 2023. The patient appears very stable. His is in the room with him. Labs, x- rays, and medications are reviewed. The patient continues on Zosyn. Resting room air saturation was 89%. Chest CT, revealed bilateral patchy and basilar infiltrates. We will continue to follow make recommendations along the way. Prognosis is guarded. The patient was diagnosed with a gastric outlet obstruction, secondary to non-Hodgkin's lymphoma. Plan dated November 23, 2023. The patient is seen today in room 517. He is resting comfortably. He continues on saline at 10 cc an hour. He is getting tube feedings with Pivot at 20 cc an hour. He has been weaned down to 2 L of oxygen. He continues on Zosyn. Labs, x-rays, and all medications are reviewed. Prognosis is guarded. We will continue to follow. Plan dated November 24, 2023. The patient will be admitted to the intensive care unit. I believe he deserves to be an ICU patient. I did speak to the surgeon. Labs, x-rays, and medications are reviewed. No additional recommendations are made. Prognosis is guarded. The patient has now been in the hospital for 12 days. We will continue to follow. He continues on Zosyn. Plan dated December 14, 2023. The patient is seen today in room 253. Currently, the patient is on the ventilator. He will have another PSV/CPAP trial. Apparently yesterday, he went for about 2-1/2 hours before he required to be placed back on the ventilator. The patient is getting saline at 10 cc an hour, and Nepro tube feedings at 50 cc an hour, which is goal. The patient had a fever, and will be recultured. In addition, the midline incision in the abdomen, shows some evidence of purulence, and will have a surgeon, take a look at that. Currently, the patient is not on any antibiotics. We will recheck a procalcitonin level. One of the family members was in the room, and was updated. Plan dated December 15, 2023. The patient actually spent about 6 hours on pressor support yesterday. The patient will have another spontaneous breathing trial today. The patient remains off of all sedation. He is getting Ativan and Dilaudid as needed. He is receiving tube feedings at goal. Labs, x-rays, and medications are reviewed. The repeat procalcitonin level was elevated at 1.92. We added Zosyn empirically. He had pancultures done yesterday. Labs, x-rays, and all medications are reviewed. Prognosis is guarded. An update was given to the daughter and to the right. Dictation was produced using [employer] software. Please excuse any grammatical, word or spelling errors. Plan dated December 30, 2023. The patient is seen today in room 253. The patient has now been in the hospital for 48 days. He was admitted way back on November 11. The patient currently is not ready to be weaned, given his high respiratory rate, and high minute volume. The patient is converted back to volume assist-control. In addition, the patient continues on Zerbaxa, Eraxis, and daptomycin, because of recent infections, including Pseudomonas, and Citrobacter, as well as Staphylococcus. Labs, x-rays, and medications are reviewed. The patient will continue on a small dose of propofol, Dilaudid as needed, and Ativan. Dexmedetomidine which is currently running was to be discontinued. Additional recommendations and suggestions are forthcoming. Prognosis is poor in my opinion. The patient remains a full code. The remains hopeful. Dictation was produced using [employer] software. Please excuse any grammatical, word or spelling errors. Plan dated December 31, 2023. The patient is seen today in room 253. Family members are at the bedside. After observing the patient on the ventilator, for period of time, it was clear to me, the patient was not synchronous with the ventilator. For that reason, we switched from volume assist-control, to pressure regulated volume control or VC plus. The patient had a inspiratory time of 0.8 seconds, and a targeted tidal volume of 450 cc. Everything else stayed the same. After switching, the patient's respiratory rate came down, as did his minute volume. He appeared much more comfortable. Labs, x-rays, medications are reviewed. The patient continues on Zerbaxa, Eraxis, and daptomycin. We will continue to follow. Prognosis is guarded. No additional recommendations are made. The patient is on propofol at 40 mcg/kg/min. I have asked the nurses to use both Ativan every 6 hours, and Dilaudid every 2 hours as needed, to see if we can get him on a small dose of propofol so that we can send the patient to long-term acute care facility. Prognosis is guarded. Dictation was produced using [employer] software. Please excuse any grammatical, word or spelling errors. Plan dated January 01, 2024. The patient is seen today in room 253. I had a long conversation with the patient's family yesterday. It was encouraged, by the primary service, Dr. Rowe. Dr. Rowe also talked to the family about CODE STATUS, and the possibility of a palliative care consult or hospice consultation. The patient is chronically and critically ill, but stable. The patient remains on the mechanical ventilator, and is not able to be weaned at this time. Previous attempts at weaning, has caused significant increases in respiratory rate, significant increases in minute volume, and disruptions of his vital signs. The patient continues on Zerbaxa, daptomycin, and Eraxis. The patient is on a relatively smaller dose of propofol at 15 mcg/kg/min. I have encouraged the nurse to wean that down even further. In addition to propofol, the patient is receiving Ativan, and Dilaudid as needed. Labs, x-rays, medications are reviewed. The patient could be considered for possible discharge to long-term acute care facility or select specialty. Plan dated January 02, 2024. I have ongoing discussions with the family. The patient is doing very poorly in my opinion, and is currently not weanable. The patient, could be transferred to a long-term acute care facility or specialized nursing facility. We are attempting to get his propofol dose down to a reasonable level. I did asked the nurses to make sure that the patient got his Dilaudid, and Ativan, as scheduled medications. The patient blood gases are excellent. pO2 is 90, pCO2 is 34, pH is 7.40. The patient remains on pressure regulated volume control modality of ventilation. Labs, x-rays, and all medications are reviewed. The patient is overall prognosis remains poor. The patient remains a full code patient. I did have a long talk with the patient's just a few days ago. Time with Patient: Greater than 30
[2024-01-02 12:17] LABS: Glucose,Whole Blood 151 mg/dL (70-110)
--- NOTE | 2024-01-02 13:04 | P.PN ---
Subjective Progress Note Date: 01/01/24 Principal diagnosis: Reason for follow-up is pneumonia and bacteremia Patient is 73-year-old with male initial presentation to the hospital on 11/11/2021 for after the patient did have aspiration while undergoing elective endoscopy, diagnosed with a non-Hodgkin of, subsequently did have explained laparotomy for perforated small bowel abdominal washout and feeding jejunostomy tube patient did require dialysis catheter placement for dialysis during this hospital stay and tracheostomy for respiratory failure, infectious was consulted for fever. On today's evaluation that is 01/01/2024,the patient has been afebrile no fever recorded last 48 hours patient remains intubated on the vent FiO2 is currently stable at 30% patient is hemodynamically stable not requiring any pressor support currently on TPN and no diarrhea has been reported. Patient white count is 12.1 creatinine is 1.11 Objective - Vital Signs Vital signs: Vital Signs Temp 97.7 F 01/01/24 08:00 Pulse 98 01/01/24 11:00 Resp 32 H 01/01/24 11:00 BP 103/71 12/31/23 02:00 Pulse Ox 99 01/01/24 11:00 FiO2 30 01/01/24 11:00 Intake & Output 12/31/23 01/01/24 01/01/24 18:59 06:59 18:59 Intake Total 3075.904 1534.755 487.72 Output Total 1880 1055 570 Balance 1195.904 479.755 -82.28 Weight 103.1 kg Intake: IV 1843 1336 442 0.9 153 156 52 Anidulafungin 100 mg In 100 Sodium Chloride 0.9% 100 ml @ 84 mls/hr IVPB DAILY [facility] Rx#:[id number] Ceftolozane/Tazobactam 3 100 gm In Sodium Chloride 0.9 % 100 ml @ 100 mls/hr IV Q8H [facility] Rx#:[id number] DAPTOmycin 600 mg In 50 Sodium Chloride 0.9% 50 ml @ 100 mls/hr IVPB Q24H [facility] Rx#:[id number] Fat Emulsion 20% 250 ml 250 In Empty Bag 1 bag @ 21 mls/hr IV DAILY@1000 [facility] Rx#:[id number] Invasive Line 2 30 Potassium Chloride 10 meq 200 100 In Water For Injection 1 100ml.bag @ 100 mls/hr IVPB Q1H [facility] Rx#: [id number] TPN 990 1080 360 Intake, IV Titration 1142.904 198.755 45.72 Amount Mvi, Adult No.4 with Vit 1039.5 K 10 ml Trace (Conc-1Ml/ Dose) 1 ml Sodium Acetate 18 meq Potassium Acetate 28 meq Magnesium Sulfate gm 1 gm Calcium Gluconate 1 gm Potassium Phosphate 9 mmol In Amino Acid 5%-D15w 1,000 ml @ 90 mls/hr IV .BY DURATION [facility] Rx#:[id number] propofoL 1,000 mg In 103.404 198.755 45.72 Empty Bag 1 bag @ 15 MCG/ KG/MIN 9.144 mls/hr IV . [id number] [facility] Rx#:[id number] TPN/PPN 90 TPN 90 Output: Gastric Drainage 400 100 Drainage 180 160 Right Abdomen 180 160 Urine 1300 1055 310 Other: Voiding Method Indwelling Catheter Indwelling Catheter Indwelling Catheter # Bowel Movements 0 ABP, PAP, CO, CI - Last Documented Arterial Blood Pressure 168/76 - Exam GENERAL DESCRIPTION: An elderly male lying in bed in no distress RESPIRATORY SYSTEM: Unlabored breathing , decreased breath sounds at bases HEART: S1 S2 regular rate and rhythm , ABDOMEN: Soft , no tenderness EXTREMITIES: No edema feet - Labs CBC & Chem 7: 01/02/24 09:30 01/02/24 05:00 Labs: Abnormal Lab Results - Last 24 Hours (Table) 12/31/23 12/31/23 01/01/24 Range/Units 18:01 23:19 04:20 WBC 12.1 H (3.8-10.6) k/uL RBC 2.39 L (4.30-5.90) m/uL Hgb 7.0 L (13.0-17.5) gm/dL Hct 22.0 L (39.0-53.0) % RDW 18.5 H (11.5-15.5) % Plt Count 69 L (150-450) k/uL Neutrophils # 8.9 H (1.3-7.7) k/uL ABG pCO2 (35-45) mmHg ABG O2 Saturation (94-97) % Hemoglobin (13.0-17.5) gm/dL Chloride (98-107) mmol/L Carbon Dioxide (22-30) mmol/L BUN (9-20) mg/dL Glucose (74-99) mg/dL POC Glucose (mg/dL) 201 H 203 H (70-110) mg/dL Calcium (8.4-10.2) mg/dL Iron (65-175) UG/DL TIBC (228-460) UG/DL % Saturation (15.00-50.00) Transferrin (204.0-354.0) mg/dL Ferritin (22.0-322.0) ng/mL 01/01/24 01/01/24 01/01/24 Range/Units 04:20 04:20 04:26 WBC (3.8-10.6) k/uL RBC (4.30-5.90) m/uL Hgb (13.0-17.5) gm/dL Hct (39.0-53.0) % RDW (11.5-15.5) % Plt Count (150-450) k/uL Neutrophils # (1.3-7.7) k/uL ABG pCO2 34 L (35-45) mmHg ABG O2 Saturation 98.5 H (94-97) % Hemoglobin 7.0 L* (13.0-17.5) gm/dL Chloride 120 H (98-107) mmol/L Carbon Dioxide 19 L (22-30) mmol/L BUN 44 H (9-20) mg/dL Glucose 140 H (74-99) mg/dL POC Glucose (mg/dL) (70-110) mg/dL Calcium 7.0 L (8.4-10.2) mg/dL Iron 13 L (65-175) UG/DL TIBC 105 L (228-460) UG/DL % Saturation 12.38 L (15.00-50.00) Transferrin 75.3 L (204.0-354.0) mg/dL Ferritin 642.0 H (22.0-322.0) ng/mL 01/01/24 Range/Units 11:50 WBC (3.8-10.6) k/uL RBC (4.30-5.90) m/uL Hgb (13.0-17.5) gm/dL Hct (39.0-53.0) % RDW (11.5-15.5) % Plt Count (150-450) k/uL Neutrophils # (1.3-7.7) k/uL ABG pCO2 (35-45) mmHg ABG O2 Saturation (94-97) % Hemoglobin (13.0-17.5) gm/dL Chloride (98-107) mmol/L Carbon Dioxide (22-30) mmol/L BUN (9-20) mg/dL Glucose (74-99) mg/dL POC Glucose (mg/dL) 181 H (70-110) mg/dL Calcium (8.4-10.2) mg/dL Iron (65-175) UG/DL TIBC (228-460) UG/DL % Saturation (15.00-50.00) Transferrin (204.0-354.0) mg/dL Ferritin (22.0-322.0) ng/mL Assessment and Plan (1) Sepsis Current Visit: Yes Status: Acute Code(s): A41.9 - SEPSIS, UNSPECIFIED ORGANISM SNOMED Code(s): 46934588 (2) Pneumonia Current Visit: Yes Status: Acute Code(s): J18.9 - PNEUMONIA, UNSPECIFIED ORGANISM SNOMED Code(s): 470362026 (3) Bacteremia Current Visit: Yes Status: Acute Code(s): R78.81 - BACTEREMIA SNOMED Code(s): 2584389 Plan: 1patient with pneumonia with a sputum showing Citrobacter and Pseudomonas aeruginosa, the patient sputum repeat is still growing Citrobacter and Pseudom onas sensitive to the Pseudomonas that is a drug-resistant and resistant to Zosyn, patient is currently on Zerbaxa and will monitor clinical course closely 2-patient did have a positive blood culture with staph epi that was oxacillin resistant as the patient did have a PICC line and the dialysis catheter he is on daptomycin repeat blood culture currently growing oxacillin sensitive staph epi, the patient dialysis catheter has been discontinued, catheter cultures so far negative 3-patient also have significant excoriation around his jejunostomy tube site which is still leaking local care with Triad cream 4the patient did have resolution of his fever white count is trending down he is currently broadly covered with the Zerbaxa and daptomycin and Eraxis to continue, prognosis remains to be guarded at the bedside question answered Dictation was produced using [employer] dictation software. please excuse any grammatical, word or spelling errors. Time with Patient: Less than 30
--- NOTE | 2024-01-02 13:05 | P.PN ---
Subjective Progress Note Date: 01/02/24 Principal diagnosis: Reason for follow-up is pneumonia and bacteremia Patient is 73-year-old with male initial presentation to the hospital on 11/11/2021 for after the patient did have aspiration while undergoing elective endoscopy, diagnosed with a non-Hodgkin of, subsequently did have explained laparotomy for perforated small bowel abdominal washout and feeding jejunostomy tube patient did require dialysis catheter placement for dialysis during this hospital stay and tracheostomy for respiratory failure, infectious was consulted for fever. On today's evaluation that is 01/02/2024, the patient continues to be afebrile and no fever in the last 72 hours patient is on the vent through the trach and FiO2 stable at 30% no significant purulent secretion through the ET patient is hemodynamically stable not requiring pressor support and no diarrhea has been reported. Patient white count normalized to 10.0, creatinine 1.08 Objective - Vital Signs Vital signs: Vital Signs Temp 99.1 F 01/02/24 12:11 Pulse 96 01/02/24 12:11 Resp 32 H 01/02/24 12:11 BP 156/69 01/02/24 12:11 Pulse Ox 97 01/02/24 12:11 FiO2 30 01/02/24 12:00 Intake & Output 01/01/24 01/02/24 01/02/24 18:59 06:59 18:59 Intake Total 3414.38 8097.594 9110 Output Total 6510 1055 410 Balance -3095.62 248.826 3913 Weight 103.1 kg 102.2 kg Intake: IV 1353 1306 968 0.9 73 36 68 Anidulafungin 100 mg In 100 Sodium Chloride 0.9% 100 ml @ 84 mls/hr IVPB DAILY [facility] Rx#:[id number] Ceftolozane/Tazobactam 3 100 100 100 gm In Sodium Chloride 0.9 % 100 ml @ 100 mls/hr IV Q8H [facility] Rx#:[id number] DAPTOmycin 600 mg In 100 100 Sodium Chloride 0.9% 50 ml @ 100 mls/hr IVPB Q24H [facility] Rx#:[id number] Invasive Line 2 90 90 60 TPN 990 1080 540 Intake, IV Titration 2060.38 520.034 7684 Amount Mvi, Adult No.4 with Vit 2030 K 10 ml Trace (Conc-1Ml/ Dose) 1 ml Potassium Acetate 40 meq In Amino Acid 5%-D15w+Lytes*E* 2, 000 ml @ 90 mls/hr IV . [id number] [facility] Rx#:[id number] propofoL 1,000 mg In 55.88 275.108 Empty Bag 1 bag @ 15 MCG/ KG/MIN 9.144 mls/hr IV . [id number] [facility] Rx#:[id number] Blood Product 0 Rc As-1 Unit 0 [id number] Output: Gastric Drainage 150 Drainage 5300 40 70 Right Abdomen 300 40 70 wound vac 5000 Urine 1060 1015 340 Other: Voiding Method Indwelling Catheter Indwelling Catheter Indwelling Catheter # Bowel Movements 0 ABP, PAP, CO, CI - Last Documented Arterial Blood Pressure 124/53 - Exam GENERAL DESCRIPTION: An elderly male lying in bed in no distress RESPIRATORY SYSTEM: Unlabored breathing , decreased breath sounds at bases HEART: S1 S2 regular rate and rhythm , ABDOMEN: Soft , no tenderness EXTREMITIES: No edema feet - Labs CBC & Chem 7: 01/02/24 09:30 01/02/24 05:00 Labs: Abnormal Lab Results - Last 24 Hours (Table) 01/01/24 01/01/24 01/02/24 Range/Units 17:33 18:30 00:16 RBC (4.30-5.90) m/uL Hgb (13.0-17.5) gm/dL Hct (39.0-53.0) % RDW (11.5-15.5) % Plt Count (150-450) k/uL ABG pCO2 34 L (35-45) mmHg ABG O2 Saturation 98.0 H (94-97) % Hemoglobin 7.0 L* (13.0-17.5) gm/dL Chloride (98-107) mmol/L Carbon Dioxide (22-30) mmol/L BUN (9-20) mg/dL Glucose (74-99) mg/dL POC Glucose (mg/dL) 177 H 189 H (70-110) mg/dL Calcium (8.4-10.2) mg/dL Triglycerides (0.00-149.00) mg/dL Crossmatch 01/02/24 01/02/24 01/02/24 Range/Units 04:50 05:00 05:00 RBC 2.28 L (4.30-5.90) m/uL Hgb 6.8 L* (13.0-17.5) gm/dL Hct 20.9 L (39.0-53.0) % RDW 18.7 H (11.5-15.5) % Plt Count 72 L (150-450) k/uL ABG pCO2 34 L (35-45) mmHg ABG O2 Saturation 97.8 H (94-97) % Hemoglobin 6.7 L* (13.0-17.5) gm/dL Chloride 119 H (98-107) mmol/L Carbon Dioxide 20 L (22-30) mmol/L BUN 45 H (9-20) mg/dL Glucose 142 H (74-99) mg/dL POC Glucose (mg/dL) (70-110) mg/dL Calcium 7.1 L (8.4-10.2) mg/dL Triglycerides 293.00 H (0.00-149.00) mg/dL Crossmatch 01/02/24 01/02/24 01/02/24 Range/Units 09:30 09:30 12:15 RBC 2.21 L (4.30-5.90) m/uL Hgb 6.5 L* (13.0-17.5) gm/dL Hct 20.3 L (39.0-53.0) % RDW 18.9 H (11.5-15.5) % Plt Count 83 L (150-450) k/uL ABG pCO2 (35-45) mmHg ABG O2 Saturation (94-97) % Hemoglobin (13.0-17.5) gm/dL Chloride (98-107) mmol/L Carbon Dioxide (22-30) mmol/L BUN (9-20) mg/dL Glucose (74-99) mg/dL POC Glucose (mg/dL) 151 H (70-110) mg/dL Calcium (8.4-10.2) mg/dL Triglycerides (0.00-149.00) mg/dL Crossmatch See Detail Assessment and Plan (1) Sepsis Current Visit: Yes Status: Acute Code(s): A41.9 - SEPSIS, UNSPECIFIED ORGANISM SNOMED Code(s): 71305274 (2) Pneumonia Current Visit: Yes Status: Acute Code(s): J18.9 - PNEUMONIA, UNSPECIFIED ORGANISM SNOMED Code(s): 788530310 (3) Bacteremia Current Visit: Yes Status: Acute Code(s): R78.81 - BACTEREMIA SNOMED Code(s): 8486656 Plan: 1patient with pneumonia with a sputum showing Citrobacter and Pseudomonas aeruginosa, the patient sputum repeat is still growing Citrobacter and Pseudomonas sensitive to the Pseudomonas that is a drug-resistant and resistant to Zosyn, patient is currently on Zerbaxa and will monitor clinical course closely 2-patient did have a positive blood culture with staph epi that was oxacillin resistant as the patient did have a PICC line and the dialysis catheter he is on daptomycin repeat blood culture currently growing oxacillin sensitive staph epi, the patient dialysis catheter has been discontinued, catheter cultures so far negative 3-patient also have significant excoriation around his jejunostomy tube site which is still leaking local care with Triad cream 4the patient did have resolution of his fever and white count has normalized patient is currently broadly covered with Zerbaxa and daptomycin and Eraxis however overall prognosis remains to be guarded, primary and pulmonary team has been discussing hospice with the patient family Family at the bedside question answered Dictation was produced using [employer] dictation software. please excuse any grammatical, word or spelling errors. Time with Patient: Less than 30
--- NOTE | 2024-01-02 15:19 | P.PN ---
Progress Note - Text Progress Note Date: 01/02/24 Chief Complaint: Aspirated This is a 73-year-old patient, follows with Dr. Patricia Deal. Patient was seen this morning in the ICU. Patient's and daughter at the bedside. History obtained predominantly by the . Patient been having trouble with his stomach symptoms for close to 8 months. Patient underwent EGD by Dr. Sahara Cheng yesterday. Patient was found to have ulcerated around the antrum and obstruction to the pylorus. A lot of retained food was found. Patient aspirated. Had to be intubated and brought to the ICU. On a Levophed drip. FiO2 50 and a PEEP of 6. Patient had been losing weight lost about 25 pounds. Previously has a history of mitral valve prolapse. November 13: ICU. Patient remains on Precedex drip and propofol drip. Did not do well attempted extubation yesterday. Patient been off Levophed. NG tube to suction. Spoke to patient's and son at the bedside. Biopsy results awaited. Hemoglobin dropped to 6.9 this morning. Get a unit of blood. November 14: ICU. Up in a chair. Extubated yesterday. NG tube to suction. at the bedside. 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 Oncology was consulted. They have ordered a port. Results discussed with Dr. Sahara Cheng. General surgery was consulted for J-tube placement. Discussed with at the bedside. Patient getting IV fluids, IV Zosyn,. Patient has been on IV amiodarone for A-fib-back in sinus rhythm. Multiple PACs. Did receive unit of blood yesterday. Also IV ferric gluconate. November 15: ICU. Patient earlier today underwent jejunostomy tube placement and a port placement. Patient awake. Answering questions. NG tube to suction present. Updated patient's . Patient remains on IV amiodarone and IV Zosyn. November 16: ICU. Up in the chair. NG tube present but not to suction. Trickle feeding through the jejunostomy tube should be started today. Dietitian has been on board. IV Zosyn to continue. Patient's and his sister at the bedside. Discussed. Also spoke with Dr. Serna. Given patient has no other predisposing cardiac factors for the A-fib except acute illness. His LV function is normal. Left atrium is normal. He has already been loaded with IV amiodarone. Will switch him to oral Lopressor 12.5 twice daily. Hence will DC amiodarone. Patient yesterday had wheezing was put on bronchodilators steroids per pulmonary. November 17: Propped up in bed. NG tube was discontinued. Sinus rhythm. Remains NPO. Getting G-tube feeding at 40 cc an hour. Dietitian following. Get arrangements done for DC home tomorrow including tube feeding. Increase activity discussed with patient and elder daughter at the bedside. Still requiring oxygen. Incentive spirometry. November 18: Patient up in recliner. Earlier today spoke to social worker palliative care David. Informed patient is rather weak and will be going to the [facility]. Looking at authorization. Denae came to the room and spoke to patient his and his daughter. They are very keen to take the patient home as 3 daughters all nurses and they will take care of him at home. Patient earlier today to abdominal cramping and some loose stools.'s tube feeding was held. Told the nurse to start back at the rate of 40 cc an hour. He was before the getting it at 55 cc an hour. Incentive spirometry was again emphasized. Patient remains on 4 L of oxygen. November 19: I saw the patient this morning. Hence I am in the evening. Morning was sitting with his sons. Has some edema. Lungs had crackles I gave him 40 mg of Lasix. He did make good urine. Tube feeding was held from the previous evening of because of abdominal cramping. Acute abdominal series showed nonspecific bowel gas pattern and SBO to be ruled out. Family and patient was updated. Told him discharge will depend on day by day. Later this afternoon CT scanAnd abdomen pelvis done. Showed small bowel to be 3 point centimeter dilated. Some anasarca. Gastric findings. Gallstones. Later spoke to Dr. Irby from general surgery. They will further review and decide about further plan of action. Will give further dose of IV Lasix because of fluid overload from likely hypoalbuminemia and IV fluids previously received. Patient may take his pills by mouth. Total time spent today about 1 hour with over 40 minutes of discussion. Patient did state his breathing is better after Lasix this morning. November 20: Saw the patient this morning. was present. Patient received 2 more doses of Lasix. Diuresed well. Breathing much better. Lungs are sounding better. Discussed with Dr. Zepeda other surgeon. He is taking 3 cc out of the balloon and the gastrostomy tube. Started trickle feeding at 5 cc an hour. Will see how this does. Later in the day ran into the and the daughter again. Did update them on the same. Dilaudid was discontinued yesterday but morphine was ordered by surgery for patient having pain. Concerns about GI issues with that we will DC the morphine. As family does not want the same. November 21: Patient reclining bed. Tired. Several family members at the bedside. Including his and eldest daughter. Patient started on trickle feed yesterday at 5 cc an hour. This morning he has been on 10 cc an hour. Still having some loose stools. C. difficile was ordered. Patient on 2 L of nasal cannula. Has diuresed well. Will give an additional dose of Lasix today. If C. difficile is negative and the diarrhea is from the tube feedings we may have to use a fecal management system to keep him comfortable. Otherwise patient remains NPO. Dietitian is following the patient. Care was discussed length with patient the and daughter at the bedside. Questions answered. Liquid Tylenol has been added for abdominal pain. Avoid narcotics. Elevated white count likely from Solu-Medrol 11/23/2023--patient was feeling better today. Multiple family member at bedside. No issues overnight. Normal saline at 10 cc an hour, tube feeding at 20 cc an hour, remains on Zosyn, on 3 L oxygen. Afebrile. Heart rate 62, respiratory rate 16, blood pressure 114/67, saturating 91% on 3 L. WBCs 14.5, 9.7 hemoglobin. Platelet 242. BMP is unremarkable. Pulmonary and general surgery following. General surgery recommended to continue tube feeds at 20 cc/h. 11/24/2023--patient reported significant abdominal discomfort, also noted to have leak around G-tube. General surgery is following, evaluated the patient at bedside, adjusted tube feeds. Also reported having diarrhea, on 2 L oxygen, went up to 5 L. Blood pressure was low, 500 mL fluid bolus with close monitoring of respiratory status ordered. Currently on DuoNebs, Solu-Medrol, will continue Zosyn. Chest x-ray showed a left lower lobe infiltrate. Abdominal x-ray showed multiple air-fluid levels. CT abdomen showed multiple dilated small bowel loops, consistent with obstruction, pneumoperitoneum, cholelithiasis and ascites. WBCs 14.1, platelet 255, hemoglobin 8.9. NG tube in place. Family at bedside. patient transferred to SICU for close monitoring. 11/25/23--patient is currently in the ICU, required Levophed overnight due to low blood pressure, low urine output with creatinine trending up. Nephrology following. Supervisor [employer] also following. Patient remains n.p.o., NG tube in place, following NG tube insertion patient had total of 2 L output, J-tube was draining approximately 200 cc over last 8 hours, continues to have abdominal pain and abdominal tenderness. Patient on IV fluids. Currently on 4 L oxygen. WBCs 8.2, hemoglobin 12.3, platelet 188. Chest x-ray earlier today showed right sided port and a stable left lung airspace disease, NG tube in place. Patient currently on Zosyn, on IV Dilaudid for pain control, on IV Solu-Medrol. General surgery planning for OR today, started on TPN. 11/26/23--patient was seen and examined today. Patient is currently sedated, intubated on mechanical ventilation. Family at bedside. Patient underwent ex lap, abdominal washout, small bowel resection with new feeding jejunostomy tube placement yesterday, small bowel was noted to be perforated with significant contamination of abdominal cavity. Patient is currently on vancomycin and Zosyn. Creatinine went up to 2.85, nephrology following, recommended to continue IV fluids, avoid nephrotoxin Preserved EF on echocardiogram.. Patient currently on Levophed, vasopressin in the ICU for close monitoring. Patient is afebrile, heart rate 122, blood pressure 129/76, currently on mechanical ventilation, sedated. November 26: ICU. Intubated. FiO2 60 and a PEEP of 5. Drips include IV amiodarone. Heart rate was up early did get fired microgram of IV digoxin and 2.5 mg of IV Lopressor. Did drop her blood pressure bit. Urine output was low. Received 80 mg of IV Lasix. Ahmet to 150 cc. Other drips include IV propofol, vasopressin, Levophed. TPN was started yesterday. Antibiotics include IV Zosyn and vancomycin. Patient has a J-tube to drainage to gravity. Spoke to patient's younger daughter and at the bedside. Prognosis guarded. Continue current treatment plan. Chest x-ray shows right lower lobe consolidation. Small pleural effusion. November 27: ICU. Intubated. FiO2 55 and a PEEP of 5. Antibiotics include IV vancomycin. Drips include Levophed at a small dose, IV vasopressin, propofol, amiodarone. Patient converted to sinus rhythm this morning. Getting TPN and normal saline at 75 cc an hour. Urine output about 25 cc an hour. RAYA drain put out about 260 cc last 12 hours that is last manufacturing shift supervisor. NG tube with bilious output. And also GI J-tube output to gravity. Spoke to patient's and daughter at the bedside. They understand patient still not out of the kee. Platelets have dropped-therefore probably Zosyn stopped. November 28: ICU. Intubated. FiO2 55 and a PEEP of 5. Patient is in sinus rhythm. Seen this morning. Due for dialysis catheter this afternoon. Urine output about 15 to 20 cc an hour. Patient is on IV Lasix 80 mg every 12. Saline is KVO. Drips include IV propofol vasopressin. Patient having significant output through the RAYA drain and the jejunostomy tube to drainage. Creatinine had been getting worse. Patient's at the bedside. Understands patient's remains critically ill. Hemoglobin is down to 7. Given that patient's pain hypotensive, and on vasopressin we will give a unit of blood with dialysis. Getting TPN antibiotic changed to IV meropenem November 29: ICU. Intubated. FiO2 55 and a PEEP of 5. Remains in sinus rhythm. Getting TPN. Dialyzed yesterday and this morning. About 1000 cc removed. Urine output about 50 cc an hour. Patient is on IV propofol. Off vasopressin. Still having significant output through the RAYA drain and jejunostomy tube. Patient received a second unit of blood yesterday. Patient's and daughter at the bedside. I did discuss guarded prognosis. Did asked them to revisit CODE STATUS.. Getting IV meropenem. November 30: ICU. Intubated. Did get a sedation holiday t today. Back on propofol. Getting TPN. Still getting IV Lasix. Fair urine output. Jejunostomy tube in last 8 hours was about 30 cc output. RAYA drain in the 8 hours had about 180 cc output. Telemetry shows sinus rhythm. NG tube has low intermittent suction with negative output. On the vent with FiO2 40 and a PEEP of 5. No hemodialysis today. Discussed with the and eldest daughter at the bedside. IV meropenem-patient's sputum had grown Citrobacter freundii and Pseudomonas aeruginosa. December 01: ICU. Intubated. Jejunostomy tube to gravity. Only 10 cc output in last 24 hours. RAYA drain. About 190 cc last 6 hours. Nasogastric tube to low intermittent suction. Minimal output. Patient is on a small dose of propofol 5 mics. Telemetry shows sinus rhythm. Patient started on small dose of Cleviprex this morning. Blood pressure. Getting TPN. FiO2 35 and PEEP of 5. Discussed with the at the bedside. Hemodialysis today December 02: ICU. Patient remains intubated. FiO2 35 PEEP of 5. Patient is on IV propofol. IV Cleviprex was discontinued yesterday. Also remains on TPN. Telemetry shows sinus rhythm. NG tube is good no output. Still significant output through the RAYA drain. Jejunostomy tube has minimal output. Patient had hemodialysis today 2 L of fluid was removed. Oral half liters yesterday. Patient getting a sedation holiday. General Surgery started the patient on trickle feeding at 10 cc an hour. I did speak to patient's at the bedside. Prognosis remains guarded but there is some improvement. December 03: ICU. Intubated. FiO2 35 PEEP of 5. Drips include IV propofol and Precedex. Getting TPN. Telemetry shows sinus rhythm. Remains on IV Lasix 80 mg twice a day. IV meropenem. Because patient gets easily agitated when transitioning off propofol he has been switched over to Precedex. For hemodialysis today. December 04: ICU. Intubated. FiO2 35 and a PEEP of 5. Patient been taken off propofol is on Precedex. Telemetry sinus rhythm. J-tube with minimal output. RAYA drain with decreased output. NG tube to suction minimal output. Family wanted to hold off trickle feeding until cleared by oncology. Which he did today. Trickle feeding will be started today. Spoke to patient's and one of the daughters at the bedside. Dr. Russ is spoken to the earlier this point they want to do further tracheostomy tube. December 05: ICU. Intubated. FiO2 35 PEEP of 5. Patient remains on Precedex and PPN. Patient's dialysis catheter was not functioning is getting another [address] Bobby this afternoon. Remains on IV meropenem. Has a RAYA drain in the jejunostomy tube to gravity. NG tube to low intermittent suction. No family at the bedside. December 06: ICU. Intubated. FiO2 35 PEEP of 5. RAYA drain putting out about approximately 120 cc per shift. Patient on IV Precedex. FiO2 35 PEEP of 5. Telemetry-sinus rhythm. Patient occasionally been put on small dose of Levophed specially for hemodialysis getting it today. Also started on midodrine for low blood pressure. Tolerating tube feeding at 10 cc an hour. Also had a bowel movement. Mentation has not improved. Even with sedation holiday. Neurology consulted. CT brain shows no acute process. December 07: ICU. Intubated. FiO2 35 PEEP of 5. Telemetry-sinus rhythm. NG tube to suction low intermittent minimal output. Getting TPN. Tube feeding at 20 cc an hour. RAYA drain averaging over 100 cc per shift. Remains on Precedex. EEG was done today. Discussed with at the bedside. Family is currently not inclined for tracheostomy tube today. Day 13 of being intubated December 08: ICU. Intubated. FiO2 35 PEEP of 5. Patient is put on back on propofol per technician anatomic pathology Dr. JIMENEZ. EEG did show some potential for spikes was put on Keppra by neurology. Telemetry shows sinus rhythm. NG tube to suction with no output. Tube feeding was put on hold because of questionable discharge on the site. Being restarted today. RAYA drain is 150 cc last 12-hour shift. Patient does open eyes. Family has decided to proceed with tracheostomy and surgery has been consulted for the same. Spoke to the at the bedside. For hemodialysis today. December 09: ICU. Intubated FiO2 35 PEEP of 5. Patient seen this morning. Pending tracheostomy placement this afternoon. Remains NPO. G-tube feeding was held overnight. RAYA drain putting out about 100 cc per shift. Received a unit of blood for hemoglobin of 6.6. On 25 mics of propofol. Getting TPN and meropenem. Spoke to the at the bedside. Patient became hypotensive with dialysis yesterday. Levophed had to be given. Only 800 cc were removed yesterday. No hemodialysis today. December 10: ICU . FiO2 35, PEEP 5. Tracheostomy was done yesterday by Dr. Ewing. G-tube feeding was started today at 10 cc an hour. Dietitian following. RAYA drain 12-hour shift overnight put out about 30 cc. Patient hemodialysis to day about 1 L removed. Patient has a sacral stage II decub with a dressing. On propofol 20 mics. Spoke to at the bedside. TPN. Meropenem was discontinued yesterday. December 11: ICU. FiO2 35 PEEP of 5. Tracheostomy. NG tube was discontinued. No hemodialysis today. Telemetry shows sinus rhythm. J-tube feeding at 40 cc an hour. TPN was discontinued. Patient has been off propofol also. PICC line in place. Patient had a EEG done today. Spoke to patient's elder daughter at the bedside. May open eyes occasionally. Not really following commands December 12: 73-year-old white male with history of chronic abdominal pain for the last 8 months has been treated with Protonix 40 mg daily for the last 3 months with no improvement. Patient had a 22 pound weight loss in the last [address] of the abdomen and pelvis 3 weeks ago showed thickening of the antral wall with pathological adenopathy posterior to the stomach suspicious of neoplasm. Today the patient underwent elective upper endoscopy to evaluate further, patient received IV sedation by anesthesia endoscope was inserted into the mouth, esophagus was intubated without any difficulty there was evidence of large amount of liquid and solid food noted in the stomach suggestive of gastric outlet obstruction. Scope could not be advanced through the pylorus, however in the prepyloric area there was a large superficial ulceration identified with multiple biopsies were done from this area. The body cardia and fundus could not adequately visualize because of large amount of retained food in the stomach. Scope was withdrawn back to the stomach and upon careful examination the mucosa of the antrum body and cardia as well as the fundus appeared normal. Procedure was being performed and biopsies were done patient threw up and subsequently became hypoxic there was clearly evidence of witnessed aspiration anesthesia intubated the patient, procedure was terminated, and the patient was transferred to the ICU, this consult was initiated. Patient is now on assist- control rate of 20 tidal volume 500 FiO2 70% PEEP of 10 ABG is pending, earlier ABG showed profound hypoxia patient is on propofol at 50 mcg/kg/min, next ABG is pending. Chest x-ray showed chronic changes without evidence of acute pulmonary disease. 12/14/2023 Patient remains in the ICU, generally weak Patient s/p tracheostomy G-tube in place Patient still has fever and mild tachycardia but tachycardia is improving, leukocytosis improving as well. Hemoglobin 8.1. Creatinine 3.0 and nephrology team on the case. He has mild transaminitis. He was getting Zosyn which is held now, nowCalcitonin is pending 12/14 Patient shon in the ICU, he is still encephalopathic and does not follow command. Neurology service following closely. He is status post tracheostomy. Also J-tube His abdomen looks soft and on exam he has mild coarse secretions. Has a Abarca catheter with clear urine His pro- Calcitonin is still high but trending down 3.0 down to 1.9 No fever this morning WBC slightly less at 16.3 Patient currently off antibiotic He is getting steroids IV Solu-Medrol which might contribute to his leukocytosis. Also he is on IV Keppra by neurologist 12/14 Patient remains confused in the ICU calm, he had a good night per family member and staff. Tracheostomy in place Patient has occasional coughing spells, patient also developed some partial wound dehiscence in his abdomen, surgery team are aware and are going to evaluate the patient Patient also has positive blood culture from 12/13: Gram-positive cocci in clusters. Patient received one-time dose of IV vancomycin. Patient also had fever 2 days ago, leukocytosis and total elevated pro- Calcitonin. Therefore we are going to consult infectious disease team. As his antibiotic Zosyn was stopped few days ago. Currently patient KVO He has good urine output December 16: ICU. Trach. Congested. Requiring suctioning. No hemodialysis today. Getting G-tube feeding at 50 cc an hour. FiO2 30 and a PEEP of 5. On IV Precedex. Eyes open. Does follow commands. Weakness in the limbs. Spoke to at the bedside. Sputum positive for Klebsiella oxytoca and Pseudomonas aeruginosa. December 17: ICU. On trach. Currently cough with increased secretions requiring suctioning. Adding scopolamine patch. Very much clear secretion. CT scan is showing right upper lobe lung abscess. G-tube feeding at 50 cc an hour. Hemodialysis today. RAYA drain putting out about 140 cc a shift. Serous. Has been midline incision wound dehiscence. Wound VAC was placed on it. Stage II ulcer. Patient is on Precedex drip 0.15 mics. Urine output is good about 6200 cc an hour. Spoke to the at the bedside. Patient currently not stable for transfer to LTAC. No limb movements. PT OT on the case. otherwise awake does follow simple commands by face December 18: ICU. Patient seen this afternoon. Because of pain getting IV Dilaudid. No nasal cannula on room air. Does move about his head. Telemetry shows sinus rhythm. FiO2 30 and a PEEP of 5. Patient started on scopolamine patch yesterday has decreased secretions today. Good urine output. Tube fee ding at 60 cc an hour. Wound VAC on incisional would be high since in place. RAYA drain continues to make output. No hemodialysis today December 19: ICU. Patient was seen earlier today. FiO2 30 and a PEEP of 5. Sinus rhythm. Awake. Does follow with eyes. Tube feeding got obstructed tube feedings held for now. Increasing oozing from the incision drainage site. at the bedside. Wound VAC remains in place. Good urine output. Dialysis held today. December 20: ICU. Per nephrology no dialysis today. 1 L fluid bolus given. J- tube was replaced over the wire by Dr. Ewing from surgery. On Precedex 0.6 mcg. FiO2 30 and a PEEP of 5 on the vent. RAYA drain putting out of around 100 cc per shift. at the bedside. Drainage through the abdominal incision wound. CT scan abdomen showed tube placement in the small bowel. Stable large right lower quadrant mass with a fluid level. December 21: ICU. No dialysis today. Patient started on trickle feeding through the J-tube yesterday. He started leaking around the J-tube site. Tube feeding was held. Dressings were placed. Wound VAC remains on the incision. Still having output through the RAYA drain. Patient remains on Precedex 0.4 mcg. FiO2 30 and a PEEP of 5. Sinus rhythm. at the bedside. December 22: ICU. Patient was seen this morning today by me. No dialysis today. Patient's and daughter at the bedside. FiO2 30 and a PEEP of 5. Sinus rhythm. Still having significant secretions through the tracheostomy tube. On Precedex 0.4 mcg. Getting D5W IV fluids. Tube feeding remains to be on hold since yesterday. Still output of RAYA drain. Awaiting input from surgery. Discussed with the and daughter. December 23: ICU. Saw the patient this afternoon. Because of good output of urine dialysis has been discontinued. Telemetry shows sinus rhythm. FiO2 30 and a PEEP of 5. RAYA output has been around 8200 cc an hour. Good urine output. Patient does have very slight movement of the limbs. Wound VAC is putting out about 20 cc per shift. Yesterday when trickle feeding was started patient's J- tube drainage also started leaking around the insertion site. Tube feeding was held. Patient remains on IV Zosyn and Precedex at 0.3 mcg. I had a very lengthy discussion with patient's daughter and at the bedside overall guarded prognosis. Later surgery spoke to the family, and then the nurse called me that family was wanting transferred to [facility]. I spoke to Dr. Irby. They felt they could not offer anything more at this point. I did call the [facility] transfer software team leader. Gave them the reason for transfer. Later in the ICU nurse informed me through [employer] that [facility] had declined the transfer. Total time spent today about 50 minutes with over 30 minutes of discussion. December 24: ICU. Patient is doing not too well. Sinus rhythm. Drips include norepinephrine and IV propofol. Surgery did put 2 stitches around the J-tube insertion site. Started on TPN today. FiO2 30 PEEP of 5. Patient became hypothermic put on a Manjit hugger. Also hypoglycemic. Decreased urine output. IV fluids increased. Patient's son was at the bedside. I did speak to patient's eldest daughter outside in the waiting room. Did tell the patient doing very poorly. I did try to call the on the phone number she has gone home. Started an IV antifungal today. December 26, 2023 73-year-old white male with history of chronic abdominal pain for the last 8 months has been treated with Protonix 40 mg daily for the last 3 months with no improvement. Patient had a 22 pound weight loss in the last [address] of the abdomen and pelvis 3 weeks ago showed thickening of the antral wall with pathological adenopathy posterior to the stomach suspicious of neoplasm. Today the patient underwent elective upper endoscopy to evaluate further, patient received IV sedation by anesthesia endoscope was inserted into the mouth, esophagus was intubated without any difficulty there was evidence of large amount of liquid and solid food noted in the stomach suggestive of gastric outlet obstruction. Scope could not be advanced through the pylorus, however in the prepyloric area there was a large superficial ulceration identified with multiple biopsies were done from this area. The body cardia and fundus could not adequately visualize because of large amount of retained food in the stomach. Scope was withdrawn back to the stomach and upon careful examination the mucosa of the antrum body and cardia as well as the fundus appeared normal. Procedure was being performed and biopsies were done patient threw up and subsequently became hypoxic there was clearly evidence of witnessed aspiration anesthesia intubated the patient, procedure was terminated, and the patient was transferred to the ICU, this consult was initiated. Patient is now on assist- control rate of 20 tidal volume 500 FiO2 70% PEEP of 10 ABG is pending, earlier ABG showed profound hypoxia patient is on propofol at 50 mcg/kg/min, next ABG is pending. Chest x-ray showed chronic changes without evidence of acute pulmonary disease. 12/27/2023 Patient is seen and evaluated with family at bedside; remains in the ICU intubated and mechanically ventilated. - ABG showed a pO2 of 99 pCO2 31 pH of 7.44. -- Remains on Eraxis daptomycin and Zosyn patient is intermittently requiring Dilaudid, Ativan does not seem to help his agitation and restlessness. -- Continues to have leakage around the jejunostomy tube, and patient is undergoing the J-tube exchange today. Family is at bedside, seems to be quite anxious about his overall condition, and I explained to the that we are doing the best we can considering his critical illness situation and critical illness polyneuropathy. Patient is profoundly weak, and weaning the patient from mechanical ventilation is almost impossible. At least not at this point yet WBC count is 10.9 hemoglobin is 8.1 basic metabolic profile is normal BUN is 46 creatinine 1.90 patient has been off hemodialysis since the . Chest x- ray continues to show stable findings with right upper lobe opacity and right lower lobe opacity and possibly a small right-sided pleural effusion ----Continue ventilatory support, now on IMV mode rate of 16 with pressure support of 14 Continue Precedex and use Dilaudid 0.5 mg every 2-3 hours as needed. Nutritional support patient is now on TPN, Possible J-tube changed today for J- tube malfunction Continue antibiotics including daptomycin and Zosyn, Eraxis was added by infecti ous disease 12/28/2023 the patient is seen and evaluated in room at bedside; continues to be afebrile, the patient is on the ventilator through the trach FiO2 is currently stable at 30% no significant pleural effusion clinically patient on requiring any pressor support still having drainage around his jejunostomy tube patient dialysis catheter has been discontinued. Patient white count normalized to 7.6, creatinine is 1.51 patient with pneumonia with a sputum showing Citrobacter and Pseudomonas aeruginosa, the patient sputum repeat is still growing Citrobacter and Ps eudomonas sensitive to the Pseudomonas is pending continue with Zosyn -patient did have a positive blood culture with staph epi that was oxacillin resistant as the patient did have a PICC line and the dialysis catheter he is on daptomycin repeat blood culture currently growing oxacillin sensitive staph epi, the patient dialysis catheter has been discontinued Has been sent for the culture -patient also have significant excoriation around his jejunostomy tube site which is still leaking Eraxis was added which will be continued as the patient fever pattern has improved and the patient white count has normalized once again discussed with the nursing staff to apply Triad cream which was discussed yesterday but not applied and monitor clinical course closely 12/29/2023 Patient is seen and evaluated with family members at bedside; remains intubated and mechanically ventilated -- ABG showed a pO2 of 105 pCO2 31 pH of 7.45. Remains on Precedex; multiple antibiotics and antifungal including Eraxis daptomycin and Zosyn. -- chest x-ray is showing improvement in his right upper lobe airspace disease/pulmonary abscess. Right lower lobe seems about the same with chronic opacity and possibly some small right-sided pleural effusion. --Family is at bedside, patient is arousable but does not follow any instructions. Gets extremely restless and agitated easily hence patient is receiving Dilaudid which seems to be working much better for this patient than benzodiazepines --possibly transfer the patient to a select care specialty. 12/30/2023 Evaluated in follow-up in the intensive care unit. He remains on the mechanical ventilator. Status post tracheostomy. There has been a decrease in the amount of leakage around the J-tube site he continues on a gravity flow. TPN is infusing tube feedings remain on hold at this time. No bowel movement reported for the last 5 days. X-ray today reveals extensive pleural parenchymal opacities throughout the right with at least a moderate pleural effusion. Mild patchy densities left mid and lower lung are also similar. Blood work reveals a white blood cell count 11.5, hemoglobin 8.1, platelet count of 78, sodium 142, potassium 4.2, BUN of 42, creatinine of 1.22, Phos of 2.3, magnesium 1.9. Patient continues on IV anidulafungin IV Zerbaxa IV daptomycin. Patient is currently sedated with propofol and also Precedex which is currently on hold at this time. December 31, 2023: ICU. Patient continues to do poorly. On propofol 35 mics. Also getting IV Dilaudid and IV Ativan.. Telemetry shows sinus rhythm. J-tube feeding has been discontinued. Significant output through the Abarca bag and around the G-tube site. Patient also putting out through the RAYA drain on the right side. Getting TPN and lipids. Patient is antimicrobial include iv aniedulefungin, IV ceftolozane/tazobactam, IV daptomycin Advance care planning [October 31, 2023] I met with patient's at the bedside. Went through in detail with patient is overall very poor clinical status. Chances of any meaningful recovery next to minimal. I also did mention that patient in my opinion was not stable to go to chronic ventilator setting. I suggested comfort care/hospice. I did not feel and why all honesty that patient is benefiting any further from the treatment we are giving him in fact causing probably more suffering. I also spoke to patient's daughter outside in the waiting room. Total time spent about 50 minutes with over 30 minutes of discussion. Later I called Dr. Luther JIMENEZ the technician anatomic pathology after he received a text that family was expressing that some physician expressed he was doing better and giving hope. I spoke to nurse Aminta in the evening and she and Dr. JIMENEZ did go and talk to patient's family at the bedside later. January 01, 2024: ICU. FiO2 30 and a PEEP of 5. Continues to have increased drainage at the G-tube site. Wound VAC in place over the incision. RAYA drain continues to put out excretions. Good urine output. Drips include IV propofol at 20 mics, also getting IV Ativan and Dilaudid. Patient also keeping getting TPN lipids. Spoke to the patient's at the bedside. No further questions. I did speak to Dr. Irby from general surgery. Hence it is both our impression again that changing the tube will not make any difference to the bigger picture. And probably futile. Dr. Irby will be speaking to the family today. David from social worker palliative care did ask about of family meeting. I did reiterate that I spoken at length to the a few times and also the daughter. Dr. Jimenez also spoke to the and Dr. Irby will be speaking with the today. Prognosis remains to be very poor. I did tell the in my opinion probably the patient is not r a candidate for long-term facility. Will technician anatomic pathology Dr. Jimenez determine if the patient is a candidate for long-term chronic ventilator facility. January 02, 2024: ICU. FiO2 30 PEEP of 5. Telemetry sinus rhythm. Drips include propofol at 20 mics. Patient getting TPN lipids. Receiving 1 unit of packed red blood cell. Patient was having a breakdown around the tracheostomy stoma site. With a cuff leak. G-tube site is continues to have increasing output. Wound VAC in place. RAYA drains also having increasing output. Patient sister and daughter from [place] from out of town. Earlier they spoke at length with Dr. alford from general surgery. Prognosis remains poor. Daily Active Medications Acetaminophen (Acetaminophen Tab 325 Mg Tab) 650 mg PO Q4HR PRN PRN Reason: Fever and/ or Pain Last Admin: 12/09/23 20:09 Dose: 650 mg Acetaminophen (Acetaminophen Oral Susp (Peds) 3,840 Mg/120 Ml Bottle) 480 mg PO Q4HR PRN PRN Reason: Fever Albuterol/Ipratropium (Ipratropium-Albuterol 3 Ml Neb) 3 ml INHALATION RT-QID [facility] Last Admin: 01/02/24 14:45 Dose: 3 ml Albuterol/Ipratropium (Ipratropium-Albuterol 3 Ml Neb) 3 ml INHALATION RT-Q2H PRN PRN Reason: Shortness Of Breath Or Wheezing Last Admin: 12/03/23 03:45 Dose: 3 ml Chlorhexidine Gluconate (Chlorhexidine Gluconate 15 Ml Cup) 15 ml MUCOUS MEM BID [facility] Last Admin: 01/02/24 08:23 Dose: 15 ml Darbepoetin Scooby (Darbepoetin Scooby 40 Mcg/0.4 Ml Syringe) 40 mcg SQ Q7D [facility] Last Admin: 12/31/23 14:23 Dose: 40 mcg Dextrose/Water (Dextrose 50% Syringe 50 Ml) 25 ml IVP PER PROTOCOL PRN; Protocol PRN Reason: Hypoglycemia Last Admin: 12/24/23 01:01 Dose: 25 ml Dextrose/Water (Dextrose 50% Syringe 50 Ml) 50 ml IVP PER PROTOCOL PRN; Protocol PRN Reason: Hypoglycemia Last Admin: 12/25/23 18:03 Dose: 50 ml Hydromorphone HCl (Hydromorphone 2 Mg/Ml 1 Ml Syringe) 1 mg IVP Q2H [facility] Last Admin: 01/02/24 14:49 Dose: 1 mg Anidulafungin 100 mg/ Sodium (Chloride) 130 mls @ 84 mls/hr IVPB DAILY [facility]; Protocol Last Admin: 01/02/24 08:25 Dose: 84 mls/hr Daptomycin 600 mg/ Sodium (Chloride) 50 mls @ 100 mls/hr IVPB Q24H [facility]; Protocol Last Admin: 01/02/24 08:27 Dose: 100 mls/hr Fat Emulsion Intravenous 250 (ml/ IV Solution) 250 mls @ 21 mls/hr IV DAILY@1000 [facility] Last Admin: 01/02/24 10:58 Dose: 21 mls/hr Propofol 1,000 mg/ IV Solution 100 mls @ 9.144 mls/hr IV .[id number] [facility]; Protocol Last Admin: 01/02/24 06:54 Dose: 20 mcg/kg/min, 12.192 mls/hr Parenteral Vitamin Supplement 10 ml/ Zinc/Copper/Manganese/Selenium 1 ml/ Potassium Acetate 40 meq/ Amino Ac/Electrol/Dextrose/Calcium 2,031 mls @ 90 mls/hr IV .[id number] [facility] Stop: 01/03/24 09:00 Last Admin: 01/02/24 11:53 Dose: 90 mls/hr Ceftolozane/Tazobactam 3 gm/ (Sodium Chloride) 100 mls @ 100 mls/hr IV Q8H [facility]; Protocol Last Admin: 01/02/24 11:39 Dose: 100 mls/hr Parenteral Vitamin Supplement 10 ml/ Zinc/Copper/Manganese/Selenium 1 ml/ Potassium Acetate 36 meq/ Amino Ac/Electrol/Dextrose/Calcium 2,029 mls @ 90 mls/hr IV .[id number] [facility] Insulin Aspart (Insulin Aspart (Novolog) 100 Unit/Ml Vial) 0 unit SQ 0000,0600,1200,1800 [facility]; Protocol Last Admin: 01/02/24 13:00 Dose: 2 unit Levetiracetam (Levetiracetam Iv 500 Mg/5 Ml Vial) 250 mg IVP Q24HR [facility] Last Admin: 01/02/24 08:23 Dose: 250 mg Lorazepam (Lorazepam 2 Mg/Ml Inj) 1 mg IV Q6HR [facility] Last Admin: 01/02/24 11:46 Dose: 1 mg Metoprolol Tartrate (Metoprolol Tartrate 5 Mg/5 Ml Vial) 2.5 mg IVP Q6HR PRN PRN Reason: Heart Rate - HIGH Last Admin: 11/27/23 08:25 Dose: 2.5 mg Midodrine (Midodrine 5 Mg Tab) 5 mg PO AC-TID [facility] Last Admin: 01/02/24 08:25 Dose: Not Given Miscellaneous Information (Magnesium Replacement Protocol 1 Each Misc) 1 each MISCELLANE DAILY PRN; Protocol PRN Reason: Per Protocol Miscellaneous Information (Potassium Replacement Protocol 1 Each Misc) 1 each MISCELLANE DAILY PRN; Protocol PRN Reason: Per Protocol Multi-Ingred Cream/Lotion/Oil/Oint (Hydrophilic Cream 180 Gm Tube) 1 applic TOPICAL BID [facility]; Protocol Last Admin: 01/02/24 10:53 Dose: 1 applic Multi-Ingredient Ointment (Zinc Oxide 20% Oint 28.4 Gm Tube) 1 applic TOPICAL BID PRN; Protocol PRN Reason: Skin Irritation Naloxone HCl (Naloxone 0.4 Mg/Ml 1 Ml Vial) 0.2 mg IV Q2M PRN PRN Reason: Opioid Reversal Pantoprazole Sodium (Pantoprazole 40 Mg/10 Ml Vial) 40 mg IVP BID [facility] Last Admin: 01/02/24 08:23 Dose: 40 mg Petrolatum (Zinc Oxide Paste (Z-Guard) 1 Applic) 1 applic TOPICAL BID [facility]; Protocol Last Admin: 01/02/24 10:54 Dose: 1 applic Past medical history to include: GERD Social history: . No smoking. Physical examination: VITAL SIGNS: 99.1, 96, 32, 156 x 69, 97% on the ventilator GENERAL: Sedated. Left groin dialysis catheter. Right chest wall port. Getting TPN and lipids EYES: Pupils equal. Conjunctiva edouard l. HEENT: External appearance of nose and ears normal, tracheostomy-. NECK: JVD unable to assess; masses not palpable. HEART: First and second heart sounds are normal; edema, present LUNGS: Respiratory rate increased, decreased breath sounds ABDOMEN: Soft, some tenderness. Liver spleen not palpable, no masses palpable..jejunostomy tube-dressing in place, soaked. RAYA drain. Incision with stitches with - wound VAC PSYCH: Unable to assess NEURO: Patient sedated INVESTIGATIONS, reviewed in the clinical context: January 01: White count 10 hemoglobin 6.5 platelets 83 potassium 4.6 creatinine 1.08 December 31: White count 12.1 hemoglobin 7 platelets 69 sodium 141 potassium 4.3 creatinine 1.11 iron 13 TIBC 105% saturation 12.3 ferritin 642 Sputum culture [December 24] Citrobacter freundii, Pseudomonas aeruginosa Blood culture [December 24] Staphylococcus pettenkoferi December 30: White count 12.8 hemoglobin 7.3 platelets 67 sodium 140 potassium 3.6 creatinine 1.15 December 24: White count 1.5 hemoglobin 8.2 platelets 106 potassium 3.8 BUN [address] chest abdomen without contrast [December 16] right upper lung cavitary lesion with air-fluid level in the posterior aspect and a larger cavitary lesion possibly within the lung parenchyma itself. Extending down towards the diaphragm additional airspace opacities in the left lung base. December 09: White count 26.1 hemoglobin 8.6 platelets 154 potassium 4.1 BUN 86 creatinine 3.31. Hemoglobin this morning was 6.6 prior to transfusion EEG-evidence of generalized cerebral dysfunction and sporadic intermittent higher amplitude sharply contoured waves mainly bifrontal. Showing cortical irritability. 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 Serosal fibrous adhesions. Viable margins. Sputum culture: [November 25]: Citrobacter freundii. Pseudomonas aeruginosa November 20: White count 14.4 hemoglobin 8.8 platelets 229 potassium 4.1 BUN [address] scan abdomen [November 19] possible small bowel obstruction Stool: C. difficile negative November 15: WBC 13 hemoglobin 7.7 platelets 248 potassium 4.3 creatinine 0.87 2D echo: EF 55 to 60%. Kidneys bladder: Unremarkable November 13: White count 12 hemoglobin 6.9 platelets 276 potassium 4.4 creatinine 1.21 magnesium 1.8 iron 6 TIBC 365% saturation 1.64 transferrin 261 ferritin 34.6 B12 569 folate 4.4 November 11: Creatinine 0.86 EGD: Large amount of retained solid liquid food noted in the stomach. Large superficial gastric antral ulceration involving most of the antrum extending into the pylorus causing pyloric stenosis. Biopsies were obtained. Chest x-ray film personally reviewed by me-scattered infiltrates Assessment plan: -Aspiration pneumonitis bilateral from retained gastric contents mostly food and liquids, causing acute hypoxic respiratory failure: On presentation: Subsequent bacterial pneumonia sputum culture November 25: Citrobacter freundii, Pseudomonas aeruginosa. December 13: Klebsiella oxytoca, Pseudomonas aeruginosa IV meropenem-was received originally. Also received IV Zosyn. Currently receiving:iv aniedulefungin, IV ceftolozane/tazobactam, IV daptomycin -Breakdown of tracheostomy stoma site. Being followed by technician anatomic pathology -Sepsis with septicemia from above Antibiotics -Probable lung abscess larger 1 on the right side-patient cultures are growing Pseudomonas and Klebsiella oxytoca , daptomycin, other antibiotics -Acute pulmonary edema and fluid overload from hypoalbuminemic state and fluids from IV.:: Has been getting Lasix and dialysis: Both held -Altered mentation. Possibly encephalopathy. Could be delirium.: Not improving CT brain [December 06] nothing acute Neurology following EEG-evidence of generalized cerebral dysfunction and sporadic intermittent higher amplitude sharply contoured waves mainly bifrontal. Showing cortical irritability. Keppra was started on December 07 -Critical care poly- Pedro neuropathy: Slow to respond PT OT -Gallstones, asymptomatic -Small l bowel perforation at site of jejunostomy tube tip with balloon..: Portion of small bowel resected. On November 24. New J-tube was placed.- drainage to gravity:-Now discontinued December 19: J-tube blocked. J-tube replaced on December 20 over wire December 21: Leaking around the J-tube site. Feeding held December 23: J feeding was started yesterday evening but again started leaking increasingly around the J-tube site-feeding held again December 24: J-tube feeding has been held. Patient is currently having increased drainage from the J-tube site and also Abarca bag over the ostomy -Acute kidney injury. Possible ATN from hypotensive shock: Slow to respond Renal ultrasound unremarkable. Started on renal replacement therapy on November 28. Followed by nephrology-dialysis has been held -Nutrition Jejunostomy tube placed November [address] Ewing Received TPN-this was discontinued. TPN lipids restarted on December 24 -Midline abdominal incision wound dehiscence Wound VAC placed -Acute recurrent atrial fibrillation-converted to sinus rhythm Received IV amiodarone. Cardiology following Lopressor -Acute hypoxic respiratory failure from aspiration pneumonia, status post ventilator assisted: Reintubated November 25. FiO2 35 PEEP of 5 Tracheostomy tube-by Dr. Zepeda on December 09 -Septic shock, recovered -Hypertension Patient started on Cleviprex-discontinued -Intermittent hypotension Intermittent use of Levophed. 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 Also anemia of blood draw. Iron deficiency anemia Received 3rd unit of blood . IV iron. -Severe thrombocytopenia. Would consider coagulation disorder secondary to infection., In the setting of underlying lymphoma.: Recovered Hematology following. 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 difficile ruled out. -Large superficial gastric antral ulceration involving the gastric antrum extending into the pylorus with gastric outlet obstruction. 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 Port placed. For outpatient PET scan. -Full code Prognosis remains poor. Continue current treatment plan supportive care. Follow-up with multiple consultants. Past Medical History Past Medical History: GERD/Reflux History of Any Multi-Drug Resistant Organisms: None Reported Past Surgical History: Heart Catheterization Additional Past Surgical History / Comment(s): colonsocopy,spinal injection, Past Anesthesia/Blood Transfusion Reactions: No Reported Reaction Past Psychological History: No Psychological Hx Reported Smoking Status: Never smoker Past Alcohol Use History: None Reported Past Drug Use History: None Reported
--- NOTE | 2024-01-02 15:59 | P.PN ---
Subjective Progress Note Date: 01/02/24 Patient seen and examined at bedside. Yesterday, patient had low volume intake and significant cuff leak around tracheostomy site. Tracheostomy has been in place now for a number of weeks without any issues. Appears to be positional. With sedation, patient is tolerating ventilator. Continues to have drainage around J-tube site. Objective - Vital Signs Vital signs: Vital Signs Temp 99.1 F 01/02/24 12:11 Pulse 92 01/02/24 15:01 Resp 32 H 01/02/24 12:11 BP 156/69 01/02/24 12:11 Pulse Ox 97 01/02/24 12:11 FiO2 30 01/02/24 14:46 Intake & Output 01/01/24 01/02/24 01/02/24 18:59 06:59 18:59 Intake Total 3414.38 8051.196 4479 Output Total 6510 1055 410 Balance -3095.62 498.477 5434 Weight 103.1 kg 102.2 kg Intake: IV 1353 1306 968 0.9 73 36 68 Anidulafungin 100 mg In 100 Sodium Chloride 0.9% 100 ml @ 84 mls/hr IVPB DAILY [facility] Rx#:[id number] Ceftolozane/Tazobactam 3 100 100 100 gm In Sodium Chloride 0.9 % 100 ml @ 100 mls/hr IV Q8H [facility] Rx#:[id number] DAPTOmycin 600 mg In 100 100 Sodium Chloride 0.9% 50 ml @ 100 mls/hr IVPB Q24H [facility] Rx#:[id number] Invasive Line 2 90 90 60 TPN 990 1080 540 Intake, IV Titration 2060.38 472.323 2958 Amount Mvi, Adult No.4 with Vit 2030 K 10 ml Trace (Conc-1Ml/ Dose) 1 ml Potassium Acetate 40 meq In Amino Acid 5%-D15w+Lytes*E* 2, 000 ml @ 90 mls/hr IV . [id number] [facility] Rx#:[id number] propofoL 1,000 mg In 55.88 275.108 Empty Bag 1 bag @ 15 MCG/ KG/MIN 9.144 mls/hr IV . [id number] [facility] Rx#:[id number] Blood Product 0 Rc As-1 Unit 0 [id number] Output: Gastric Drainage 150 Drainage 5300 40 70 Right Abdomen 300 40 70 wound vac 5000 Urine 1060 1015 340 Other: Voiding Method Indwelling Catheter Indwelling Catheter Indwelling Catheter # Bowel Movements 0 ABP, PAP, CO, CI - Last Documented Arterial Blood Pressure 124/53 - Constitutional General appearance: Present: no acute distress - Gastrointestinal Gastrointestinal Comment(s): Wound VAC in place, J-tube in place with continued drainage around site - Labs CBC & Chem 7: 01/02/24 09:30 01/02/24 05:00 Labs: Abnormal Lab Results - Last 24 Hours (Table) 01/01/24 01/01/24 01/02/24 Range/Units 17:33 18:30 00:16 RBC (4.30-5.90) m/uL Hgb (13.0-17.5) gm/dL Hct (39.0-53.0) % RDW (11.5-15.5) % Plt Count (150-450) k/uL ABG pCO2 34 L (35-45) mmHg ABG O2 Saturation 98.0 H (94-97) % Hemoglobin 7.0 L* (13.0-17.5) gm/dL Chloride (98-107) mmol/L Carbon Dioxide (22-30) mmol/L BUN (9-20) mg/dL Glucose (74-99) mg/dL POC Glucose (mg/dL) 177 H 189 H (70-110) mg/dL Calcium (8.4-10.2) mg/dL Triglycerides (0.00-149.00) mg/dL Crossmatch 01/02/24 01/02/24 01/02/24 Range/Units 04:50 05:00 05:00 RBC 2.28 L (4.30-5.90) m/uL Hgb 6.8 L* (13.0-17.5) gm/dL Hct 20.9 L (39.0-53.0) % RDW 18.7 H (11.5-15.5) % Plt Count 72 L (150-450) k/uL ABG pCO2 34 L (35-45) mmHg ABG O2 Saturation 97.8 H (94-97) % Hemoglobin 6.7 L* (13.0-17.5) gm/dL Chloride 119 H (98-107) mmol/L Carbon Dioxide 20 L (22-30) mmol/L BUN 45 H (9-20) mg/dL Glucose 142 H (74-99) mg/dL POC Glucose (mg/dL) (70-110) mg/dL Calcium 7.1 L (8.4-10.2) mg/dL Triglycerides 293.00 H (0.00-149.00) mg/dL Crossmatch 01/02/24 01/02/24 01/02/24 Range/Units 09:30 09:30 12:15 RBC 2.21 L (4.30-5.90) m/uL Hgb 6.5 L* (13.0-17.5) gm/dL Hct 20.3 L (39.0-53.0) % RDW 18.9 H (11.5-15.5) % Plt Count 83 L (150-450) k/uL ABG pCO2 (35-45) mmHg ABG O2 Saturation (94-97) % Hemoglobin (13.0-17.5) gm/dL Chloride (98-107) mmol/L Carbon Dioxide (22-30) mmol/L BUN (9-20) mg/dL Glucose (74-99) mg/dL POC Glucose (mg/dL) 151 H (70-110) mg/dL Calcium (8.4-10.2) mg/dL Triglycerides (0.00-149.00) mg/dL Crossmatch See Detail Assessment and Plan Plan: ASSESSMENT: 1. 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 Status post J-tube placement and revision for small bowel obstruction 2. Abdominal wound dehiscence status post wound VAC placement 3. Status post tracheostomy PLAN: -At this time no plan to exchange J-tube, this was discussed further with the family. Concern is for dilating the fistula tract and having excessive output. Continue to monitor. -Keep J-tube to drainage -Continue to hold tube feeds -Wound VAC scheduled to be changed 1 day/Saturday/Saturday -Continue TPN for nutrition support -Continue zinc barrier cream around J-tube -I had very long conversation with the patient's family at bedside. Patient's prognosis continues to be poor. I am concerned of developing tracheomalacia as patient's wounds all continue to have delayed healing and poor wound healing. Continue TPN at this time. Multiple service lines have now discussed poor prognosis with patient's family. Patient's daughter did state that family will discuss goals of care and would like the medical staff to stop discussing goals of care with them as they are feeling pressured. I did acknowledge this feeling and stated that medical staff is available if they have any further questions.
[2024-01-02 16:41] LABS: Glucose,Whole Blood 152 mg/dL (70-110)
[2024-01-02 16:55] LABS: Anisocytosis Slight; HCT 24.4 % (39.0-53.0); HGB 7.9 gm/dL (13.0-17.5); Hypochromasia Moderate; MCH 29.9 pg (25.0-35.0); MCHC 32.6 g/dL (31.0-37.0); MCV 91.8 fL (80.0-100.0); Mean Platelet Volume 8.3; Platelet Count 120 k/uL (150-450); RBC 2.66 m/uL (4.30-5.90); RDW 17.9 % (11.5-15.5); WBC 11.9 k/uL (3.8-10.6)
[2024-01-03 00:06] LABS: Glucose,Whole Blood 155 mg/dL (70-110)
[2024-01-03 04:44] LABS: Anisocytosis Slight; HCT 24.4 % (39.0-53.0); Hypochromasia Moderate; MCH 30.1 pg (25.0-35.0); MCHC 32.6 g/dL (31.0-37.0); MCV 92.1 fL (80.0-100.0); Mean Platelet Volume 10.3; RBC 2.65 m/uL (4.30-5.90); WBC 11.5 k/uL (3.8-10.6)
[2024-01-03 04:55] LABS: Platelet Count 78 k/uL (150-450)
[2024-01-03 04:58] LABS: African American GFR (CKD) 82 (>60 ml/min/1.73 sqM); Anion Gap 0 mmol/L; Blood Urea Nitrogen 44 mg/dL (9-20); Calcium 7.1 mg/dL (8.4-10.2); Carbon Dioxide 20 mmol/L (22-30); Chloride 119 mmol/L (98-107); Glucose 146 mg/dL (74-99); Magnesium 1.8 mg/dL (1.6-2.3); Non-African American GFR(CKD) 71 (>60 ml/min/1.73 sqM); Potassium 5.3 mmol/L (3.5-5.1); Sodium 139 mmol/L (137-145)
[2024-01-03 05:15] LABS: ABG Base Excess -2.5 mmol/L; ABG HCO3 22 mmol/L (21-25); ABG Oxygen Saturation 98.1 % (94-97); ABG PCO2 34 mmHg (35-45); ABG PH 7.41 (7.35-7.45); ABG PO2 95 mmHg (83-108); ABG TCO2 23 mmol/L (19-24); Allen Test Performed? Yes
[2024-01-03] MEDS: [UNRECOGNIZED DRUG - REMARK] IV SCH (06:06)
[2024-01-03 06:18] LABS: Glucose,Whole Blood 54 mg/dL (70-110)
[2024-01-03 06:35] LABS: Glucose,Whole Blood 192 mg/dL (70-110)
--- NOTE | 2024-01-03 07:34 | XR ---
EXAMINATION TYPE: XR chest 1V portable DATE OF EXAM: 01/03/2024 5:41 AM COMPARISON: 01/02/2024 CLINICAL INDICATION: Male, 73 years old with history of vented, , FINDINGS: Tracheostomy cannula. Right anterior chest wall injection port, catheter tip at the inferior cavoatri al junction. Left PICC tip upper right atrium. Ongoing distance of opacities throughout the right hem ithorax with focal opacity at the apex, convexly marginated opacity right hilum, and a probable moder ate right pleural effusion. Ongoing dense retrocardiac opacity and left basilar opacity persists as w ell. Prominent skin fold now projecting at the left upper lung. IMPRESSION: Overall stable exam with extensive pleural-parenchymal opacities on the right and ongoing prominent c onsolidation at the left lower lung. [facility], , 01/03/2024 7:31 AM
--- NOTE | 2024-01-03 10:45 | P.PN ---
Subjective Patient is seen for follow-up for acute kidney injury. Nonoliguric. Started on hemodialysis November 29, 2023. Currently off of dialysis as renal function has recovered. Last dialysis on 12/18/2023.. Dialysis catheter has been removed. Renal function continues to improve. Tube feeds currently held. Receiving TPN. Status post packed RBCs Yesterday. No active bleeding noted. Serum creatinine 1.08 today. Potassium was 5.3 and TPN has been adjusted. Objective - Vital Signs Vital signs: Vital Signs Temp 97.6 F 01/03/24 04:00 Pulse 90 01/03/24 07:54 Resp 32 H 01/03/24 07:00 BP 130/85 01/03/24 02:00 Pulse Ox 97 01/03/24 07:00 FiO2 30 01/03/24 07:30 Intake & Output 01/02/24 01/03/24 01/03/24 18:59 06:59 18:59 Intake Total 4160 1233.000 192.002 Output Total 830 1715 125 Balance 3330 -482.000 67.002 Weight 104.2 kg Intake: IV 1719 1133 103 0.9 159 143 13 Anidulafungin 100 mg In 100 Sodium Chloride 0.9% 100 ml @ 84 mls/hr IVPB DAILY [facility] Rx#:[id number] Ceftolozane/Tazobactam 3 100 gm In Sodium Chloride 0.9 % 100 ml @ 100 mls/hr IV Q8H [facility] Rx#:[id number] DAPTOmycin 600 mg In 100 Sodium Chloride 0.9% 50 ml @ 100 mls/hr IVPB Q24H [facility] Rx#:[id number] Invasive Line 2 90 TPN 1170 990 90 Intake, IV Titration 2131 100.000 89.002 Amount Mvi, Adult No.4 with Vit 2031 K 10 ml Trace (Conc-1Ml/ Dose) 1 ml Potassium Acetate 40 meq In Amino Acid 5%-D15w+Lytes*E* 2, 000 ml @ 90 mls/hr IV . [id number] [facility] Rx#:[id number] propofoL 1,000 mg In 100 100.000 89.002 Empty Bag 1 bag @ 15 MCG/ KG/MIN 9.144 mls/hr IV . [id number] [facility] Rx#:[id number] Blood Product 310 Rc As-1 Unit 310 [id number] Output: Drainage 130 40 Right Abdomen 130 40 Urine 700 1675 125 Other: Voiding Method Indwelling Catheter Indwelling Catheter ABP, PAP, CO, CI - Last Documented Arterial Blood Pressure 137/68 - Exam patient is sedated and on the vent. Status post trach Examination of the heart S1 and S2 Examination of the lungs decreased breath sounds at the bases Abdomen is soft, J-tube with drainage noted around Examination of lower extremities shows edema 1+ bilaterally in upper and lower extremities with scrotal edema. - Labs CBC & Chem 7: 01/03/24 04:25 01/03/24 04:25 Labs: Abnormal Lab Results - Last 24 Hours (Table) 01/02/24 01/02/24 01/02/24 Range/Units 09:30 09:30 12:15 WBC (3.8-10.6) k/uL RBC 2.21 L (4.30-5.90) m/uL Hgb 6.5 L* (13.0-17.5) gm/dL Hct 20.3 L (39.0-53.0) % RDW 18.9 H (11.5-15.5) % Plt Count 83 L (150-450) k/uL ABG pCO2 (35-45) mmHg ABG O2 Saturation (94-97) % Hemoglobin (13.0-17.5) gm/dL Potassium (3.5-5.1) mmol/L Chloride (98-107) mmol/L Carbon Dioxide (22-30) mmol/L BUN (9-20) mg/dL Glucose (74-99) mg/dL POC Glucose (mg/dL) 151 H (70-110) mg/dL Calcium (8.4-10.2) mg/dL Crossmatch See Detail 01/02/24 01/02/24 01/03/24 Range/Units 16:39 16:40 00:04 WBC 11.9 H (3.8-10.6) k/uL RBC 2.66 L (4.30-5.90) m/uL Hgb 7.9 L (13.0-17.5) gm/dL Hct 24.4 L (39.0-53.0) % RDW 17.9 H (11.5-15.5) % Plt Count 120 L (150-450) k/uL ABG pCO2 (35-45) mmHg ABG O2 Saturation (94-97) % Hemoglobin (13.0-17.5) gm/dL Potassium (3.5-5.1) mmol/L Chloride (98-107) mmol/L Carbon Dioxide (22-30) mmol/L BUN (9-20) mg/dL Glucose (74-99) mg/dL POC Glucose (mg/dL) 152 H 155 H (70-110) mg/dL Calcium (8.4-10.2) mg/dL Crossmatch 01/03/24 01/03/24 01/03/24 Range/Units 04:25 04:25 05:12 WBC 11.5 H (3.8-10.6) k/uL RBC 2.65 L (4.30-5.90) m/uL Hgb 8.0 L (13.0-17.5) gm/dL Hct 24.4 L (39.0-53.0) % RDW 18.0 H (11.5-15.5) % Plt Count 78 L (150-450) k/uL ABG pCO2 34 L (35-45) mmHg ABG O2 Saturation 98.1 H (94-97) % Hemoglobin 7.8 L (13.0-17.5) gm/dL Potassium 5.3 H (3.5-5.1) mmol/L Chloride 119 H (98-107) mmol/L Carbon Dioxide 20 L (22-30) mmol/L BUN 44 H (9-20) mg/dL Glucose 146 H (74-99) mg/dL POC Glucose (mg/dL) (70-110) mg/dL Calcium 7.1 L (8.4-10.2) mg/dL Crossmatch 01/03/24 01/03/24 Range/Units 06:16 06:32 WBC (3.8-10.6) k/uL RBC (4.30-5.90) m/uL Hgb (13.0-17.5) gm/dL Hct (39.0-53.0) % RDW (11.5-15.5) % Plt Count (150-450) k/uL ABG pCO2 (35-45) mmHg ABG O2 Saturation (94-97) % Hemoglobin (13.0-17.5) gm/dL Potassium (3.5-5.1) mmol/L Chloride (98-107) mmol/L Carbon Dioxide (22-30) mmol/L BUN (9-20) mg/dL Glucose (74-99) mg/dL POC Glucose (mg/dL) 54 L 192 H (70-110) mg/dL Calcium (8.4-10.2) mg/dL Crossmatch Assessment and Plan Assessment: 1. Acute kidney injury secondary to ATN secondary to septic shock. Creatinine 0.86 on admission and up to 5.38 dated November 29, 2023. nonoliguric. UA fairly benign. No hydronephrosis noted on imaging. Started hemodialysis on 11/29/2023 for worsening volume status and acute kidney injury. Renal function has improved and dialysis catheter was discontinued on 12/28/2023 2. Perforated small bowel status post exploratory laparotomy with abdominal washout, small bowel resection and J-tube replacement November 25, 2023. 3. A-fib with RVR. s/p amiodarone drip. 4. Recently diagnosed gastric B-cell lymphoma. 5. Septic shock. 6. Hypokalemia status post replacement. Potassium is elevated today at 5.3 and TPN has been adjusted. 7. Hypophosphatemia, being supplemented in TPN. 9. Hypernatremia, status post D5W and improved. Plan: IV Lasix 1 Repeat labs in a.m. and continue to adjust TPN as needed. Overall prognosis is guarded
--- NOTE | 2024-01-03 11:15 | P.PN ---
Subjective Progress Note Date: 01/03/24 Principal diagnosis: Reason for follow-up is pneumonia and bacteremia Patient is 73-year-old with male initial presentation to the hospital on 11/11/2021 for after the patient did have aspiration while undergoing elective endoscopy, diagnosed with a non-Hodgkin of, subsequently did have explained laparotomy for perforated small bowel abdominal washout and feeding jejunostomy tube patient did require dialysis catheter placement for dialysis during this hospital stay and tracheostomy for respiratory failure, infectious was consulted for fever. On today's evaluation that is 01/03/2024, the patient continues to be afebrile, the patient is on on the ventilator through the trach FiO2 remains to be stable at 30% no significant purulent secretion through the ET the patient is hemodynamically stable not requiring any pressor support no other changes reported by the nursing staff. Patient white count is slightly up to 11.5 today creatinine is 1.05 potassium is 5.3 catheter culture remains to be negative Objective - Vital Signs Vital signs: Vital Signs Temp 97.6 F 01/03/24 04:00 Pulse 90 01/03/24 07:54 Resp 32 H 01/03/24 07:00 BP 130/85 01/03/24 02:00 Pulse Ox 97 01/03/24 07:00 FiO2 30 01/03/24 07:30 Intake & Output 01/02/24 01/03/24 01/03/24 18:59 06:59 18:59 Intake Total 4160 1233.000 192.002 Output Total 830 1715 125 Balance 3330 -482.000 67.002 Weight 104.2 kg Intake: IV 1719 1133 103 0.9 159 143 13 Anidulafungin 100 mg In 100 Sodium Chloride 0.9% 100 ml @ 84 mls/hr IVPB DAILY [facility] Rx#:[id number] Ceftolozane/Tazobactam 3 100 gm In Sodium Chloride 0.9 % 100 ml @ 100 mls/hr IV Q8H [facility] Rx#:[id number] DAPTOmycin 600 mg In 100 Sodium Chloride 0.9% 50 ml @ 100 mls/hr IVPB Q24H [facility] Rx#:[id number] Invasive Line 2 90 TPN 1170 990 90 Intake, IV Titration 2131 100.000 89.002 Amount Mvi, Adult No.4 with Vit 2031 K 10 ml Trace (Conc-1Ml/ Dose) 1 ml Potassium Acetate 40 meq In Amino Acid 5%-D15w+Lytes*E* 2, 000 ml @ 90 mls/hr IV . [id number] [facility] Rx#:[id number] propofoL 1,000 mg In 100 100.000 89.002 Empty Bag 1 bag @ 15 MCG/ KG/MIN 9.144 mls/hr IV . [id number] [facility] Rx#:[id number] Blood Product 310 Rc As-1 Unit 310 [id number] Output: Drainage 130 40 Right Abdomen 130 40 Urine 700 1675 125 Other: Voiding Method Indwelling Catheter Indwelling Catheter ABP, PAP, CO, CI - Last Documented Arterial Blood Pressure 137/68 - Exam GENERAL DESCRIPTION: An elderly male lying in bed in no distress RESPIRATORY SYSTEM: Unlabored breathing , decreased breath sounds at bases HEART: S1 S2 regular rate and rhythm , ABDOMEN: Soft , no tenderness EXTREMITIES: No edema feet - Labs CBC & Chem 7: 01/03/24 04:25 01/03/24 04:25 Labs: Abnormal Lab Results - Last 24 Hours (Table) 01/02/24 01/02/24 01/02/24 Range/Units 09:30 09:30 12:15 WBC (3.8-10.6) k/uL RBC 2.21 L (4.30-5.90) m/uL Hgb 6.5 L* (13.0-17.5) gm/dL Hct 20.3 L (39.0-53.0) % RDW 18.9 H (11.5-15.5) % Plt Count 83 L (150-450) k/uL ABG pCO2 (35-45) mmHg ABG O2 Saturation (94-97) % Hemoglobin (13.0-17.5) gm/dL Potassium (3.5-5.1) mmol/L Chloride (98-107) mmol/L Carbon Dioxide (22-30) mmol/L BUN (9-20) mg/dL Glucose (74-99) mg/dL POC Glucose (mg/dL) 151 H (70-110) mg/dL Calcium (8.4-10.2) mg/dL Crossmatch See Detail 01/02/24 01/02/24 01/03/24 Range/Units 16:39 16:40 00:04 WBC 11.9 H (3.8-10.6) k/uL RBC 2.66 L (4.30-5.90) m/uL Hgb 7.9 L (13.0-17.5) gm/dL Hct 24.4 L (39.0-53.0) % RDW 17.9 H (11.5-15.5) % Plt Count 120 L (150-450) k/uL ABG pCO2 (35-45) mmHg ABG O2 Saturation (94-97) % Hemoglobin (13.0-17.5) gm/dL Potassium (3.5-5.1) mmol/L Chloride (98-107) mmol/L Carbon Dioxide (22-30) mmol/L BUN (9-20) mg/dL Glucose (74-99) mg/dL POC Glucose (mg/dL) 152 H 155 H (70-110) mg/dL Calcium (8.4-10.2) mg/dL Crossmatch 01/03/24 01/03/24 01/03/24 Range/Units 04:25 04:25 05:12 WBC 11.5 H (3.8-10.6) k/uL RBC 2.65 L (4.30-5.90) m/uL Hgb 8.0 L (13.0-17.5) gm/dL Hct 24.4 L (39.0-53.0) % RDW 18.0 H (11.5-15.5) % Plt Count 78 L (150-450) k/uL ABG pCO2 34 L (35-45) mmHg ABG O2 Saturation 98.1 H (94-97) % Hemoglobin 7.8 L (13.0-17.5) gm/dL Potassium 5.3 H (3.5-5.1) mmol/L Chloride 119 H (98-107) mmol/L Carbon Dioxide 20 L (22-30) mmol/L BUN 44 H (9-20) mg/dL Glucose 146 H (74-99) mg/dL POC Glucose (mg/dL) (70-110) mg/dL Calcium 7.1 L (8.4-10.2) mg/dL Crossmatch 01/03/24 01/03/24 Range/Units 06:16 06:32 WBC (3.8-10.6) k/uL RBC (4.30-5.90) m/uL Hgb (13.0-17.5) gm/dL Hct (39.0-53.0) % RDW (11.5-15.5) % Plt Count (150-450) k/uL ABG pCO2 (35-45) mmHg ABG O2 Saturation (94-97) % Hemoglobin (13.0-17.5) gm/dL Potassium (3.5-5.1) mmol/L Chloride (98-107) mmol/L Carbon Dioxide (22-30) mmol/L BUN (9-20) mg/dL Glucose (74-99) mg/dL POC Glucose (mg/dL) 54 L 192 H (70-110) mg/dL Calcium (8.4-10.2) mg/dL Crossmatch Assessment and Plan (1) Sepsis Current Visit: Yes Status: Acute Code(s): A41.9 - SEPSIS, UNSPECIFIED ORGANISM SNOMED Code(s): 14068409 (2) Pneumonia Current Visit: Yes Status: Acute Code(s): J18.9 - PNEUMONIA, UNSPECIFIED ORGANISM SNOMED Code(s): 478039042 (3) Bacteremia Current Visit: Yes Status: Acute Code(s): R78.81 - BACTEREMIA SNOMED Code(s): 9730873 Plan: 1patient with pneumonia with a sputum showing Citrobacter and Pseudomonas aeruginosa, the patient sputum repeat is still growing Citrobacter and Pseudomonas sensitive to the Pseudomonas that is a drug-resistant and resistant to Zosyn, patient is currently on Zerbaxa day number 6 out of 10 2-patient did have a positive blood culture with staph epi that was oxacillin resistant as the patient did have a PICC line and the dialysis catheter with concern for a line related infection with a suspected line removed repeat blood culture has been negative and the patient has received adequate daptomycin therapy daptomycin will be discontinued 3-patient also have significant excoriation around his jejunostomy tube site which is still leaking local care with Triad cream 4the patient also have elevated white count and the patient has been on TPN and significant excoriation around his jejunostomy tube site concerning for fungal infection so far blood culture has been negative for any resistant pathogen and received a 10-day course of Eraxis we will go ahead and discontinue Eraxis and monitor the patient closely prognosis remains to be guarded hospice may be a better option pulmonary and admitting team is discussing that with the patient f luisy Dictation was produced using [employer] dictation software. please excuse any grammatical, word or spelling errors. Time with Patient: Greater than 30
[2024-01-03] MEDS: FUROSEMIDE 10 MG/ML 4 ML VIAL IV STA (11:36)
--- NOTE | 2024-01-03 11:49 | P.PN ---
Subjective Progress Note Date: 01/03/24 Principal diagnosis: Abdominal pain. This is a 73-year-old white male with history of chronic abdominal pain for the last 8 months has been treated with Protonix 40 mg daily for the last 3 months with no improvement. Patient had a 22 pound weight loss in the last [address] of the abdomen and pelvis 3 weeks ago showed thickening of the antral wall with pathological adenopathy posterior to the stomach suspicious of neoplasm. Today the patient underwent elective upper endoscopy to evaluate further, patient received IV sedation by anesthesia endoscope was inserted into the mouth, esophagus was intubated without any difficulty there was evidence of large amount of liquid and solid food noted in the stomach suggestive of gastric outlet obstruction. Scope could not be advanced through the pylorus, however in the prepyloric area there was a large superficial ulceration identified with multiple biopsies were done from this area. The body cardia and fundus could not adequately visualize because of large amount of retained food in the stomach. Scope was withdrawn back to the stomach and upon careful examination the mucosa of the antrum body and cardia as well as the fundus appeared normal. Procedure was being performed and biopsies were done patient threw up and subsequently became hypoxic there was clearly evidence of witnessed aspiration anesthesia intubated the patient, procedure was terminated, and the patient was transferred to the ICU, this consult was initiated. Patient is now on assist- control rate of 20 tidal volume 500 FiO2 70% PEEP of 10 ABG is pending, earlier ABG showed profound hypoxia patient is on propofol at 50 mcg/kg/min, next ABG is pending. Chest x-ray showed chronic changes without evidence of acute pulmonary disease. Patient was seen and examined today on 11/13/2023, remains in the ICU, intubated mechanically ventilated, on assist-control rate of 20 tidal volume 500 FiO2 50% and PEEP of 10 ABG showed a pO2 of 143 pCO2 47 pH of 7.28 hence PEEP was cut down to 6, and increased rate to 22. Patient is still requiring IV fluid at 100 cc/h/LR. Requiring norepinephrine at 0.08 mcg/kg/min he is also on propofol at 50 mg/kg/min antibiotics arce patient is receiving Zosyn. Chest x-ray is showing worsening infiltrates specially in the left lung. This could be related to aspiration pneumonia. Patient had witnessed aspiration during endoscopy/upper endoscopy.WBC count is 14 hemoglobin 7.6 basic metabolic profile is normal BUN is 26 creatinine 1.57 obviously the patient sustained some acute kidney injury baseline creatinine 0.86 patient had received fluids over the last 24 hours, remains on fluids at 100 cc/h Patient with seen and examined today on 11/14/2023, patient remains in the ICU, intubated and mechanically ventilated. Failed weaning trial yesterday and he became quite agitated and desaturated once he went off propofol. Had to be placed back on assist-control mode of mechanical ventilation and sedation. Today the patient is on assist-control rate of 22 tidal volume 500 FiO2 50% PEEP of 6. ABG showed a pO2 of 123 pCO2 51 pH of 7.32, and I cut down his FiO2 down to 45%, patient is receiving a unit of packed RBCs for hemoglobin of 6.9 today. Patient had an episode of A-fib RVR at 3 AM in the morning, seen by cardiology, and recommended patient goes on amiodarone. Still requiring norepinephrine at 0.05 mg/kg/min, he is on LR at 100 cc/h propofol at 50 mg/kg/min. Remains empirically on Zosyn for aspiration pneumonia. My plan today is transitioning the patient to Precedex, hopefully discontinue propofol, and at least give the patient a decent weaning trial or at least check weaning parameters before we proceed to weaning trial. Chest x-ray continues to show evidence of pneumonia mostly in the left lung and left lower lobe more specifically. Some pulmonary vascular congestion is noted with interstitial edema, small pleural effusion is also noted/left side. WBC count today is 12 hemoglobin 6.9 basic metabolic profile is normal bicarb is 25, BUN is 25 creatinine is improving down to 1.21 from 1.57 yesterday Patient was evaluated today on 11/15/2023, patient remains in the ICU, he was extubated yesterday, and his extubation was relatively uneventful. However the patient continues to have nasogastric tube in place, his pathology report came back showing non-Hodgkin's lymphoma, patient has gastric outlet obstruction, and the recommendation by GI is to consult surgery for a jejunostomy tube which is appropriate. Patient will be seen today by oncology and [facility]. In the meantime patient is comfortable, he is on 5 L nasal cannula he has LR running at 100 cc/h, he is remains on Zosyn for aspiration pneumonia remains on amiodarone which was started by cardiology for atrial fibrillation with RVR, presently in sinus rhythm. Cannot switch him to oral because of the fact that remains n.p.o., patient remains on TPN. WBC count is 10.7 hemoglobin 7.5 electrolytes are normal renal profile is normal, creatinine normalized to 0.96 Patient was evaluated today on 11/16/2023, remains in the ICU, on 5 L nasal cannula remains on amiodarone at 0.5 mg/min remains on LR at 100 cc/h, however his chest x-ray is showing some component of interstitial edema or could be findings related to his recent episode of aspiration/aspiration pneumonia, nonetheless the patient seems to be a bit symptomatic, he has intermittent cough and wheezing, I am recommending Lasix 40 mg IV push, cut down his IV fluid to 50 cc/h, continue Zosyn, patient will be placed on DuoNeb updrafts and on Solu- Medrol. Patient is scheduled to have jejunostomy-tube placement today. WBC count is 13 hemoglobin 7.7 basic metabolic profile is normal and renal profile is normal Patient was evaluated today on 11/17/2023, patient underwent uneventful placement of a jejunostomy tube yesterday, in the ICU on 5 L, patient is relatively stable, not in any distress, patient continues to have nasogastric tube in place although he did have a J-tube placed yesterday. Patient was seen by oncology for his non-Hodgkin's lymphoma involving the gastric outlet. Today's x-ray showed evidence of pneumonia/bilateral interstitial infiltrate/edema patient was given a dose of Lasix, I reminded the patient had an aspiration episode which was significant. And he required intubation mechanical ventilation for a few days.WBC count today is 9.1 hemoglobin 7.9 electrolytes are normal renal profile is normal hence I plan to transfer the patient out of the ICU to a cardiac floor. And hopefully discharge planning in the next 2 days for The patient was seen today November 18, 2023 in follow-up in the intensive care unit. He is currently sitting up in bed. Awake and alert in no acute distress. He is maintaining O2 saturations in the 90s on 5 L/min per nasal cannula. Glucose 177. Remains on DuoNeb inhalations and Solu-Medrol. Antibiotics in the form of Zosyn. He has a J-tube in place. He was initiated on vital AF 1.2 at 10 mL an hour with a goal of 82 mL/h The patient is seen today November 19, 2023 in follow-up in the intensive care unit. He is a regular medical floor overflow patient. He is currently sitting up in a chair. Awake and alert in no acute distress. He is maintaining O2 saturations in the 90s on 5 L/min per nasal cannula. No IV fluids. He denies any worsening shortness of breath, cough or congestion. He is having some issues with diarrhea. He remains on Zosyn. He is receiving vital AF at 55 mL/h with a goal of 82 mL/h. Glucose 161. Solu-Medrol, DuoNeb inhalations. The patient is seen today November 20, 2023 in follow-up on the regular medical floor. He is currently up in a chair at the bedside. Awake and alert in no acute distress. Denies any worsening shortness of breath, cough or congestion. He is maintaining O2 saturation in the 90s on 3 L/min per nasal cannula. He continues on Zosyn. Continues on bronchodilators and steroids. White count 12.3. Hemoglobin 9.0. Platelets 258. Glucose 168. He is not tolerating his tube feeds as he has developed diarrhea. C. difficile screen was negative. Abdominal series revealed cardiomegaly with left basilar acute infiltrate and/or atelectasis. Overall nonspecific bowel gas pattern. A small bowel obstruction needs to be considered. Progress note dated November 21, 2023. The patient is seen in room 517. The patient is currently on 3 L of oxygen. He continues on Zosyn. His biggest complaint has been abdominal discomfort and diarrhea. He did have a CT scan of the abdomen and pelvis. Current laboratory data includes a white count of 14.4, hemoglobin 8.8, hematocrit 28.7, and platelet count 229,000. Sodium 139, potassium 4.1, chlorides 103, CO2 30, BUN 42, creatinine 0.94. Glucose is 158. Calcium is 8.5. Progress note dated November 22, 2023. 73-year-old male seen in room 517. He currently is on 2 L of oxygen. Room air saturation was 89%. Chest CT shows bilateral patchy infiltrates. He continues on Zosyn. He is still not taking anything by mouth. No new laboratory data today other than a glucose of 138. Gram stain was negative. Progress note dated November 23, 2023. 73-year-old male seen in room 517. He is resting comfortably without com plaints. He continues on saline at 10 cc an hour, tube feedings with Pivot at 20 cc an hour, Zosyn, and 2 L by nasal cannula. He has had an uneventful night. Laboratory data today includes a white count 14.5, hemoglobin 9.7, hematocrit 31.4, and a platelet count of 242,000. Sodium 138, potassium 3.7, chlorides 106, CO2 26, BUN 39, creatinine 0.95. Glucose is 181. Calcium is 8.5. Sputum sampling was negative. Progress note dated November 24, 2023. 73-year-old male who is seen in room 517. The patient has been having significant abdominal discomfort, and went for a evaluation, ordered by surgery today, to determine whether or not the feeding tube, was in proper position, and whether or not there is anything acutely going on in the abdomen. He had been having diarrhea. He is on 3 L of oxygen. He has been here for 12 days. This is a patient, that had a prior EGD, aspirated, because of gastric outlet obstruction, and was diagnosis of non-Hodgkin's lymphoma. He is currently on Zosyn, DuoNebs, and Solu-Medrol. He has been NPO. Chest x-ray showed a left lower lobe infiltrate. Abdominal x-ray showed multiple air-fluid levels. CT of the abdomen showed multiple dilated small bowel loops, consistent with obstruction, pneumoperitoneum, ascites, and cholelithiasis. White count was 14.1, hemoglobin 8.9, hematocrit 29.5, and platelet count was 255,000. Glucose was 143. 11/25/2023, the patient is being seen in the intensive care unit. The patient is critically ill, n.p.o., he has an NG tube in place. Following the NG tube insertion, there was a total of 2.0 L of output and the patient's J-tube was also draining approximately 200 cc over the past 8 hours. Continues to have abdominal pain which is rather diffuse and the patient has direct abdominal tenderness. CAT scan of the abdomen was noted and was consistent with small bowel obstruction. The patient has a stomach that was inflated and in the same time there were multiple loops of small bowel distended with fluid. This extended to the pelvis. J-tube with contrast nondilated small bowel loops within the mid abdomen. Additional loops of small bowel were seen that was dilated. There was some contrast in the right lower quadrant and contrast was also in the cecum. No transition point was identified. The dilated loops of the bowel appeared to be in the proximal jejunum and distal to the duodenum. General surgery is on the case the patient will be taken to the operating room for another exploratory laparotomy. Noted the CAT scan of the abdomen also showed pneumoperitoneum and small amount of ascites and cholelithiasis. Hemodynamically, the patient is currently on normal saline at rate of 75 cc an hour. He is hypotensive and is going to be started on pressors. He is on 4 L of oxygen by nasal cannula. He also has sustained acute kidney injury. Blood work from today shows a rise in the creatinine which is currently up to 2.5 with a BUN of 57. Serum bicarb is at 14 with an anion gap of 11. The patient WBC count is at 8.2 with a hemoglobin of 12.3 and a platelet count of 188. Chest x- ray from this morning is showing a right-sided port and a stable left lung airspace disease and an NG tube being in place. The patient remains on IV Zosyn. The patient is receiving Dilaudid for pain control. The patient remains on IV Solu-Medrol 60 mg every 6 hours. It was noted that the patient's surgical wound over the port has dehisced and there is some serous drainage and erythema at the incision site. Awake and alert and communicating. Family at the bedside. No apparent signs of respiratory distress at this point. 11/26/2023, the patient is being seen in follow-up. Events from yesterday was noted and the patient was taken to the operating room for exploratory laparotomy. The patient was found to have large amount of free fluid noted in the abdomen and there was significant contamination. There was perforation of the small bowel with the balloon of the previously inserted jejunostomy tube penetrating through the perforation. As such, the tube was removed, abdominal washout was done. Small bowel resection was done and the patient had a nodular jejunostomy tube inserted. Postop, the patient was extubated he was unable to tolerate extubation and the patient was kept intubated on mechanical ventilator and he was brought back to the intensive care unit. He is currently postop day #1 following his small bowel resection. Abdominal surgical wound site is dry c lean and intact. This morning, the patient remains sedated on propofol which is currently running at 35 mcg/kg/min. He is on assist-control mode of mechanical ventilation at rate of 28, tidal volume of 550, FiO2 of 60% with a PEEP of 5. Blood gas from today shows a pH of 7.35 with a pCO2 44 and pO2 of 88. Chest x- ray shows adequate positioning of the orotracheal tube. The patient has a Mediport on the right and a subclavian triple-lumen catheter on the left and the patient has persistent bilateral pleural effusion and infiltrates in lung base bilaterally. Hemodynamically, the patient remains in shock. He has been on high-dose norepinephrine which is currently running at 0.28 mcg/kg/min and the patient is also on vasopressin at 0.03 units an hour. He is IV fluids are in the form of bicarb infusion running at rate of 150 cc an hour. He is in sinus tachycardia. NG tube output has been 250 cc over the past 8 hours and the output from the J-tube is minimal at this point in time. Urine output is quite diminished as the patient has also sustained acute kidney injury. Overall fluid balance is +4.9 L over the past 24 hours. The patient's white cell count of 5.7 with a hemoglobin 9.9 and platelet count of 172. BUN is 72 with a creatinine of 2.8 and sodium levels at 143. The calcium level is at 6.5. LFTs are normal. Triglyceride level is at 315. On 11/27/2023, the patient remains critically ill. Remains intubated and on mechanical ventilator, still awaiting shock which is essentially septic shock. Remains on propofol which is running at 50 mcg/kg/min. Remains on the mechanical ventilator, assist-control mode with rate of 28, tidal volume of 550 with an FiO2 of 60% with a PEEP of 5. Blood gas shows a pH of 7.29 with a pCO2 of 47 and pO2 of 78. The patient had a follow-up chest x-ray that showed lower lobe consolidation slightly worse on the right and the orotracheal tube is in a good location. Urine output is diminished in the order of 5 to 10 cc an hour and the patient is also developing progressive worsening renal function. Remains on normal citrate of 150 cc an hour and the patient was started on TPN which is running at 30 cc an hour. He has a triple-lumen catheter in his left subclavian. Overall fluid balance over the past 24 hours is +3.9 L. Output from the NG tube and the J-tube is minimal. Hemodynamically, he is hypotensive and norepinephrine running at 0.45 mcg/kg/min. Vasopressin is a physiologic dose. He received amiodarone and he remains on maintenance amiodarone of 0.5 mg/min and the patient continues to be in atrial fibrillation and is having episodes of tachycardia. The white cell count is at 13, hemoglobin 9.4 platelet count is pending. The patient's BUN is 83 with a creatinine of 3.7. Sodium is at 140 with a potassium level of 5.5 dropped down to 4.4 as the sample was hemolyzed. LFTs are normal. Abdominal wound is dry clean and intact. RAYA drainage is essentially serous at this point in time. 11/28/2023, the patient is being seen for a follow-up. The patient remains intubated on mechanical ventilator. This morning, the patient tolerated propofol drip running at 50 mcg/kg/min. The patient is on mechanical ventilator assist-control mode with rate of 28, tidal volume of 550, FiO2 55% with a PEEP of 5. Chest x-ray shows stable findings with lower lobe consolidations bilaterally. Blood gas shows a pH of 7.32 with a pCO2 38 and pO2 90. Neuropathy has improved and the patient is producing approximately 30 cc an hour and the overall input output balance is +3.3 L over the past 24 hours. The patient is still on pressors although his pressor requirements have improved since yesterday. He is on norepinephrine which is running at 0.05 mcg/kg/min and vasopressin physiologic dose. Also, the patient on amiodarone drip regarding his chronic ongoing atrial fibrillation. Amiodarone drip is running at 0.5 mg/min. Nevertheless, the rate is under much better control. Noted the patient was given a dose of digoxin 0.5 mg IV yesterday which helped with rate control. Remains on normal citrate of 150 cc an hour. Remains on TPN at 40 cc an hour. Output from the J-tube is fecal. Output from the NG tube is more gastric. Surgical wound site is dry clean and intact. Sputum Gram stain and culture showing Pseudomonas and Citrobacter. Note that the Citrobacter was intermediate resistance to Zosyn. This will be discussed further with infectious disease. Blood cultures are still pending for now. They have negative based on the most recent check. Blood work from today shows WBC count 11.2, hemoglobin 7.9 and platelet count of 46. Sodium is at 140, potassium is at 4.3, chloride is 114 with a bicarb of 18. He has 93 and the creatinine is 4.8. Serum random vancomycin level is at 25.7. On 11/29/2023, the patient is being seen for a follow-up. Remains intubated on the mechanical ventilator. The patient sedated on propofol which is running at 35 mcg/kg/min. Synchronous with mechanical ventilator. On today's evaluation, he is on assist-control mode with rate of 28, tidal volume of 550, FiO2 55% with a PEEP of 5. Chest x-ray shows lower lobe consolidation bilaterally worse on th e right and the orotracheal tube is in good location. The blood gas showed a pH of 7.34 with a pCO2 of 35 and a pO2 of 84. No significant orotracheal secretions. Hemodynamically improved compared to yesterday. In fact, the patient is on minimal norepinephrine that was discontinued earlier this morning. The patient has converted to normal sinus rhythm. Remains on amiodarone at 0.5 mg/min. Overall fluid balance over the past 24 hours is 2.4 L positive. Urine output has been adequate and the patient is currently on IV Lasix. Nevertheless, the patient has developed progressive worsening renal function. Creatinine is up to 5.3 on today's evaluation with a potassium level of 4.4. Serum bicarb is at 18 with an anion gap of 9. WBC count is at 8.1 with a hemoglobin of 7 and a platelet count of 32 which has dropped compared to earlier evaluation. The rest of the coagulation profile was normal from 11/28/2023. Fibrinogen level is slightly elevated. Sputum samples have shown a combination of Citrobacter and Pseudomonas aeruginosa. Based on cultures and sensitivities, the patient will be taken off his IV Zosyn and he will be switched to IV meropenem. Output from the J-tube is fecal. Output from the NG tube is gastric and surgical wound site is dry clean and intact. He is afebrile for now. Hemodynamically, the patient is doing better. He remains on TPN for nutritional support. IV fluids are also running at a rate of 75 cc an hour. Remains on vancomycin. 11/30/2023, the patient is being seen for a follow-up. The patient remains on propofol at 50 mcg/kg/min. Ventilator settings are essentially unchanged. The patient remains on assist-control mode with rate of 18, tidal volume of 400, FiO2 50% with a PEEP of 5. The blood gas showed a pH of 7.37 with a pCO2 of 43 and pO2 of 127. Chest x-ray shows no significant interval change. Patient remains on normal saline at rate of 75 cc an hour and TPN at rate of 35 cc an hour. Fluid balance is positive. Hemodialysis was performed yesterday and the second session of hemodialysis to be done today. The patient's urine output is in the order of 20 to 30 cc an hour. The patient has an NG output of 350 cc for yesterday and the drainage from the J-tube is in the order of 400 cc over the past 24 hours. The blood work shows a WBC count of 10.8, hemoglobin 8.1 and platelet count of 41. Platelet counts are essentially stable and slightly improved compared to yesterday. The sodium level is at 133, potassium is at 4.3, BUN is 93 with a creatinine of 3.6. LFTs are within normal limits. Albumin is down to 2.1. The patient is currently on no pressors. Norepinephrine and vasopressin are both discontinued and the patient remains in normal sinus rhythm. No other significant events overnight. Family has been updated on his condition. Antibiotic coverage is currently with IV meropenem. Vancomycin and Zosyn have been both discontinued. On 12/01/2023, the patient remains sedated on propofol which is running at 25 mcg/kg/min., Comfortable and synchronous mechanical ventilator. The patient remains on assist-control mode rate of 28, tidal volume of 550, FiO2 40% and PEEP of 5. Blood gas shows a pH of 7.49 with a pCO2 of 34 and pO2 of 121. Patient underwent hemodialysis yesterday. No plans for hemodialysis today the patient is producing urine output. Remains on TPN for nutrition support rate of 75 cc an hour. IV fluids are currently at KVO. The chest x-ray from today shows bilateral lower lobe consolidation worse on the right. No significant change in the volume status. The patient continues to have third spacing and edema in all 4 extremities. Nevertheless, urine output is adequate at this point in time and the patient remains on Lasix 80 mg IV every 12 hours. Remains NPO. NG tube and J-tube are both drainage. Output is noted. Remains on IV meropenem. Afebrile. Currently on no pressors. Blood work shows a WBC count of 11.4, hemoglobin of 8.1 and platelet count of 46. Sodium is at 131, potassium level is at 3.7, chloride 101 and bicarb is at 24. BUN is 84 with a creatinine of 3.6. Glucose of 228. LFTs are within normal limits. Patient was reevaluated today on 12/02/23, patient remains in the ICU, patient is familiar to my service, I saw this patient 3 weeks ago. Since then he had a very complicated hospital course, related to his jejunostomy tube dislodging and leaking and picture of abdominal sepsis and worsening pneumonia/ARDS. Patient had to be placed back on mechanical ventilation, and he is now intubated and mechanically ventilated. He is on assist-control rate of 20 tidal volume 550 FiO2 40% PEEP of 5 ABG showed a pO2 of 111 pCO2 38 pH of 7.43 and I cut down his FiO2 to 35% and increase his flow rate from 60-70. Patient remains on TPN at 75 cc/h he is on propofol at 25 mcg/kg/min patient is on Cleviprex which I added today for elevated blood pressure. Receiving Lasix 80 mg every 12 hours is also on Merrem as per infectious disease. Patient is on hemodialysis and being followed by nephrology. Patient required multiple abdominal surgeries since his initial admission. Chest x-ray continues to show worsening pneumonia involving both lungs, right more so than left, I suspect there may be a component of ARDS. His initial presentation was the presentation of aspiration pneumonia to begin with and that was 3 weeks agoWBC count is 10.3 hemoglobin 8.6 sodium 131 potassium 4 chloride 100 bicarb 23 BUN is 111 creatinine 4.02 blood sugar is 248. Albumin is 1.9 Patient was evaluated today on , patient remains in the ICU, intubated and mechanically ventilated. Patient is on assist-control rate of 20 tidal volume 550 FiO2 35% and PEEP of 5 ABG showed a pO2 of 99 pCO2 39 pH of 7.44 patient is undergoing hemodialysis today, and the plan is to remove 2 L. He is remains on propofol at 35 mcg/kg/min, remains on TPN at 75 cc/h. Remains on Merrem. Patient is not requiring any pressors today. Yesterday patient did not tolerate to be off sedation long enough, and today we tried the same sedation interruption, and the patient did not do well post interruption of sedation, became extremely agitated restless, tachycardic, and could not fully assess mental status off sedation. Hence the patient was placed back on AC mode of mechanical ventilation, and the plan is to continue the same supportive care measures. Family updated on his condition and most likely the patient will end up requiring tracheostomy in the next few days.WBC count is 8.5 hemoglobin 8.2 basic metabolic profile is relatively unremarkable BUN is 89 creatinine 3.45 chest x-ray today showed stable chest, suspect some right-sided pleural effusion which would likely improve with hemodialysis/ultrafiltration. X-ray of abdomen showed nonspecific nonobstructive bowel gas pattern Patient was seen today on 12/04/2023, remains in the ICU, intubated mechanically ventilated, on assist-control rate of 20 tidal volume 550 FiO2 35% PEEP of 5 ABG showed a pO2 of 112 pCO2 38 pH of 7.45, hence no changes were made in ventilator settings. Patient is on propofol at 35 mcg/kg/min he is also on IV fluid at KVO TPN at 75 cc/h. Remains on hemodialysis remains on Lasix 80 mg IV push twice daily, remains on Merrem. This x-ray continues to show the same findi ngs/airspace disease in both lungs, not much of a change in the last 2 days, however his oxygenation seems to be improved. WBC count is 7.1 hemoglobin 7.7. Electrolytes are normal, BUN is elevated 77 creatinine 3.32, patient is on hemodialysis. His condition was discussed today with the at bedside, and I do not believe the patient is ready to be weaned or extubated, however he seems to get extremely agitated when he goes off propofol, today I plan to transition propofol to Precedex, give him a trial on Precedex and determine whether the patient becomes more appropriate and at least ready for any weaning trials. Clinically I doubt if this will happen but we will go ahead and try Patient was evaluated today on 12/05/2023, remains in the ICU, intubated mechanically ventilated, not much of a change noted in the last 24 hours. Remains on assist-control of 20 tidal volume 550 FiO2 35% PEEP of 5 ABG showed a pO2 of 90 pCO2 37 pH of 7.48 hence chose not to change any of his ventilator settings. Yesterday the patient failed again trial of weaning, and he was never anywhere near ready to be weaned in spite of placing him on Precedex and off propofol, at 1 point the patient became extremely agitated restless and he was biting on the endotracheal tube could not fully awake the patient and determine improvement in his mental status. Hence patient was placed back on propofol yesterday and he remains on propofol today. He is on propofol at 25 mcg/kg/min he is on TPN at 75 cc/h surgery is considering starting his J-tube feedings today. Remains on hemodialysis remains on Merrem remains on Lasix 80 mg IV push twice daily overall not much of a change his chest x-ray is basically about the same showing bibasilar airspace disease. Today I had a discussion with the regarding the option of tracheostomy extremely reluctant to have it done yet. Said that the patient had multiple complications with previous surgeries and she is afraid that he is going to have another complication with the surgeryWBC count is 10.2 hemoglobin is 8, basic metabolic profile is normal sodium 130 BUN 70 creatinine 2.89 Patient was seen today on 12/06/23, remains in the ICU, intubated mechanically ventilated, his ventilator settings are assist-control rate 20 tidal volume 550 FiO2 35% and PEEP of 5 ABG showed a pO2 of 103 pCO2 36 pH of 7.47 patient opens eyes but does not follow any other instructions. He is now off propofol for the last 24 hours, he is maintained on Precedex at 0.4, TPN at 75 cc/h vital AF at 5 mL/h. Patient remains on Merrem, patient did not receive dialysis today because issues related to occluded dialysis catheter. Nonetheless the patient is making urine, and continues to improve with diuretics. Chest x-ray continues to show bibasilar airspace disease, not much of a change analyst the last 1 week.WBC count today is 11.8 hemoglobin is 7.9.Basic metabolic profile is normal BUN is 92 creatinine 3.74. Blood sugar is 226. Family is at bedside, considering his overall mental status at this point, not quite ready to start checking weaning parameters, and is not ready for weaning. Nonetheless I plan to keep him on Precedex, and hopefully avoid narcotics and other sedatives. His mentation starts clearing a bit more, then will start trials of weaning parameters and/or weaning trials Patient was seen today on 12/07/2023, remains in the ICU, intubated and mechanically ventilated, on assist-control rate of 20 tidal volume 550 FiO2 35% PEEP of 5 ABG showed a pO2 of 83 pCO2 33 pH of 7.50 hence the tidal volume was cut down to 500. Patient remains off propofol remains off narcotics is only on Precedex for sedation at 0.6 mg/kg/h. He is on norepinephrine at 0.02 TPN at 75 cc/h IV fluid at KVO vital AF at 10 mL/h is also on Merrem. Neurologically I am concerned about this patient neurological status, does not seem to be waking up much, he opens his eyes but does not follow any instructions and spite of sedation hold for quite some time. Hence I am recommending a CT of the brain and multiple recommending a neurological consultation on this patient. WBC count is 18 7 hemoglobin is 8.4, basic metabolic profile is normal BUN is 75 creatinine 2.95, patient is back on dialysis, he had a new hemodialysis catheter placed yesterday by vascular surgery, and he will be restarted back on hemodialysis. CT of the brain done shortly after evaluating the patient showed no acute intracranial process chest x-ray basically about the same, continues to show small left and moderate right basilar infiltrate. Has not changed much over the last 1 week, patient remains on antibiotics. Patient was seen today on 12/08/2023, remains in the ICU, intubated and mechanically ventilated, remains on assist-control rate of 20 tidal volume 500 FiO2 35% PEEP of 5 ABG showed a pO2 of 88 pCO2 37 pH of 7.47 hence no changes were made in ventilator settings. Chest x-ray is showing slight increase in his right-sided pleural effusion, however his oxygenation seems to be about the same, and the patient is responding to Lasix given at 80 mg IV push every 12 hours, he is also doing well with hemodialysis he had 2 L removed yesterday and 2 L the day before. Hence will not recommend thoracentesis at this point. But the pleural effusion will need to be closely monitored. Patient remains off propofol he is on Precedex at 0.6 mcg/kg/h. For the last 2 days, and his mentation is not much different from baseline. Continues to open his eyes and does not follow any other instructions has the patient is clearly not ready for weaning trials or extubation. Brought up the issue of tracheostomy again with the , she is still reluctant to proceed with tracheostomy on him at this point. Patient remains on Merrem, remains on TPN but his enteral feeding will be advanced today to full goal, and if that happens then we will can discontinue TPN. Patient is receiving vital AF 1.2@10 mL/h at this point.WBC count is 19.3 hemoglobin 7.6. Basic metabolic profile is normal BUN is 72 creatinine 2.99 blood sugar ranging between 250 up to 334. 12/09/23 - patient seen at bedside today, remaining in the ICU, intubated and mechanically ventilated, remaining on assist-control rate of 20, tidal volume 500, FiO2 30%, PEEP of 5 and oxygen saturation of 100%. Patient is on day 27 of his hospital stay (admitted 11/11), day 15 of this current ICU stay (readmit to the ICU 11/24) and day 15 of this current period of time on the ventilator (placed 11/24). ABG showed pO2 100, pCO2 36, pH 7.47. Chest x-ray was deemed to be stable, however possibly with slight improvement noted on the left with a right-sided pleural effusion remains evident however the patient's oxygenation remains to be about the same. Continue to receive 80 mg IV Lasix every 12 hours and is receiving daily hemodialysis, in which he has been having 2 L removed the past couple of days, hemodialysis yet to occur today. His creatinine is 3.57 (compared to 2.99 yesterday) and BUN 98 (compared to 72 yesterday). Due to this response to diuresis and hemodialysis, no thoracentesis recommended at this point however pleural effusion will need to continue to be monitored. Patient shon off propofol, he is on Precedex at 0.4 mcg/kg/h. Due to his mentation remaining near baseline, neurology had been consulted who ordered an EEG which showed diffuse background slowing of his severe degree which is suggestive for generalized cerebral dysfunction and can be seen with toxic metabolic encephalopathy, as well as the presence of sporadic intermittent, some higher amplitude, sharply contoured waves of generalized distribution. Because of this per neurology's recommendation, patient started on Keppra 500 mg twice daily. The patient does seem to be having some improved mentation, with opening his eyes and responding to commands some of this morning. Spontaneous breathing trial to be attempted today, to see if the patient will be able to come off of mechanical ventilation. If that is unable to occur, discussed with the patient as well as his and one of his daughters that a tracheostomy would be the most appropriate next course of action due to the potential dangers of sustained endotracheal intubation for prolonged period of time. The , while reluctant, seem to acknowledge that this is the appropriate course of action. He remains receiving meropenem 1 g nightly. He remains on TPN 75 mL/h, which she has been on since 11/21 (18), but his enteral feeding has been vital 1.2 AF at 10 mL/h with a goal rate of 80 mL/h. Patient drained 60 mg of serosanguineous fluid from his RAYA. His WBCs increased to 21.5 (compared to 19.3 yesterday), hemoglobin dropped to 7.2 (compared to 7.6 yesterday), hematocrit dropped to 22.0 (compared to 22.9 yesterday) and patient procalcitonin remains elevated at 3.07. 12/10/23 - Patient seen at bedside today, remaining in the ICU, intubated and mechanically ventilated, remaining on assist-control rate of 20, tidal volume 500, FiO2 30%, PEEP of 5 and oxygen saturation of 100%. Patient is on day 28 of his hospital stay (admitted 11/11), day 16 of this current ICU stay (readmit to the ICU 11/24) and day 16 of this current period of time on the ventilator (placed 11/24). ABG showed pO2 93, pCO2 37, pH 7.47, showing evidence of a mild metabolic alkalosis. Chest x-ray today showed stable disease compared to yesterday. He received levo overnight due to atypical blood pressure, patient's TPN was up to 120 due to the change in formula. Patient is scheduled to undergo tracheotomy today (12/09) at 16:30. Per the nurse and the overnight staff patient continues to open his eyes and shows some responsiveness to commands. Per nephrology's recommendation dialysis to be held today due to the patient going for the tracheotomy later, as well as the dip in blood pressure seen after yesterday's dialysis session which required Levophed. Patient's Hgb this morning 6.6, will be given 1 unit today, which will be the second unit he has received during his hospital course. Patient's airway resistance noted to be 3.3 cm/L/s, static lung compliance shown to be 45 mL/cm H2O and dynamic compliance 33 mL/cm H2O. 12/11/23 - Patient seen at the bedside, remaining in the ICU, with a tracheotomy tube and mechanically ventilated while receiving dialysis. Patient remains on assist-control rate of 20, FiO2 30%, PEEP of 5 and has an oxygen saturation of 97%. Patient is on day 29 of the hospital stay (admitted 11/11), day 17 of his current ICU stay (readmitted to the ICU 11/24) and day 17 of his current period of time on the ventilator (placed 11/24). ABG today showed pO2 115, pCO2 38, pH 7.44 continuing to show evidence of a mild metabolic alkalosis. Chest x-ray today showed stable disease. Patient had tracheotomy placed yesterday afternoon (12/09) without any complications. Patient has had 3 consecutive days of attempting spontaneous breathing trials in an effort to wean the patient off the ventilator, all of which failed to this point. Beginning today the patient's antibiotics (meropenem) will be discontinued and we will begin weaning his propofol down from 25 mcg/kg/min. As the patient is weaned off of the propofol, 0.5 Dilaudid and 1 mg IV Ativan to be used every 6 hours as needed. Patient is continuing to receive normal saline 20 cc/h, and has a total of 200 mL of serosanguineous fluid from his RAYA drain. TPN to continue at a rate of 120 mL/h additionally tube feeds, which had been held due to the patient receiving s traight catheter yesterday, will be restarted today with an ultimate goal being to receive enteral nutrition at a rate of 80 mL/h. TPN to continue until able to increase the enteral nutrition to at least 50 mL/h, as per the dietitian's recommendation. Will be exploring the possibility of the patient being moved to select specialty. 12/12/23 - Patient seen at the bedside this morning, in ICU room 253, while receiving and EEG, no significant events overnight. Patient remains with tracheotomy and is mechanically ventilated on assist control with a rate of 20, tidal volume 500, FiO2 30%, PEEP of 5 with an oxygen saturation of 98%. Patient is on day 30 of the hospital stay (admitted 11/11), day 18 of his current ICU stay (readmitted to the ICU 11/24) and day 18 of his current period of time with mechanical ventilation (placed in 11/24). ABG today showed pO2 92, pCO2 36, pH is 7.49 continue to show signs of a combined respiratory and metabolic alkalosis. WBC 17.9, Hgb 7.4, Hct 22.6, PLT 151; sodium 133, potassium 4.0, HCO3 27, BUN 88, creatinine 2.96. Chest x-ray done today continuing to show patchy infiltrate throughout the right lung with layering effusion. Patient is continuing to receive normal saline 20 cc/h, continues to receive Dilaudid 0.5 mg IV push every 6 hours as needed, as well as Ativan 1 mg IV every 6 hours as needed. Patient is no longer maintained on propofol. TPN continues at a rate of 120 mm/h and EN vital AF at 30 mL/h with a goal of 40 mL/h. Once goal is reached, TPN can be discontinued and patient will be switched over to Nepro 50 mL/h. Following the patient having 3 consecutive days of attending spontaneous breathing trials and effort to wean, we will begin trying the patient with CPAP and pressure support in effort to wean, today's trial the patient will be placed on PS 5 and PEEP of 5 for 25-45 minutes, or as he is able to tolerate it. Disc ussed with the patient's the importance of continuing to wean the patient's with trials, in an effort to build up some of the strength in his lungs to better be able to tolerate breathing on his own. Will continue to evaluate for possible placement in a long-term acute care facility. 12/13/23 - Patient seen at the bedside this morning, in ICU room 253, with no significant events overnight noted. Patient remains with tracheotomy and is mechanically ventilated on assist control with a rate of 20, tidal volume 500, FiO2 30%, PEEP of 5 with an oxygen saturation of 98%. Patient is on day 30 one of the hospital stay (admitted to 11/11), day 19 of his current ICU stay (readmitted to the ICU 11/24) and day 19 of his current period of time with mechanical ventilation (placed 11/24). ABG today showed pO2 87, pCO2 36, pH 7.48 continue to show signs of a combined respiratory metabolic alkalosis. WBC 17.3, Hgb 8.0, Hct 25.3, PLT 191; sodium 136, potassium 4.1, BUN 116, creatinine 3.17. This x-ray done today continues to show stable disease. Patient had an EEG completed yesterday (12/11) which showed an abnormal EEG, study being limited because of diffuse myogenic artifact. Background slowing suggestive of severe encephalopathy. Otherwise no appreciable epileptiform discharges, focal slowing, or seizure noted during the exam. Patient continues to receive Dilaudid 0.5 mg IV push every 6 hours as needed, as well as Ativan 1 mg IV every 6 hours as needed. Patient's TPN has been stopped, he is not receiving Nepro at 50 mL/h, which is goal. Patient Solu-Medrol has been discontinued, patient now receiving 30 mg prednisone daily. Patient's trial yesterday with CPAP and pressure support with the patient was sent PS of 5 and PEEP of 5, patient tolerated 40 minutes well it was noted that his respiratory rate increased and his minute ventilation also increased during this time. Will continue with another weaning effort today and continue to reassess how the patient tolerates. He will be receiving hemodialysis today, with the plan to hold over the weekend and then reassess Saturday per nephrology. Additionally IV Lasix has been discontinued on this patient, nephrology did state that he may need to resume receiving the Lasix if the urine output tapers. Progress note dated December 14, 2023. The patient is seen today in room 253. The patient remains on the mechanical v entilator. His settings include volume assist-control, rate 20, tidal volume 500, FiO2 30%, PEEP of 5. Blood gases show pO2 of 76, pCO2 of 36, pH of 7.47. The patient is getting saline at 10 cc an hour, and Nepro at 50 cc an hour which is goal. The patient will go back on pressor support of 5 and CPAP of 5 today. Yesterday, he spent 2-1/2 hours on pressure support. The patient did have a tem perature last night. He discussed some purulent drainage at the wound site. I have asked surgeon to come back and see the patient. In addition, the nurse will get blood, urine, sputum, and wound cultures going. He is not on any antibiotics. We will check a procalcitonin level. White count of 16.7, hemoglobin 8.1, hematocrit 24.5, platelet count is normal. Sodium 135, potassium 3.9, chlorides 103, CO2 24, BUN 106, creatinine 3.04. Calcium is 7.1. Magnesium is 2.0. Urine is yellow, with 1+ protein, 6 WBCs, and rare bacteria. Chest x-ray shows a stable chest x-ray, which is largely unchanged. Progress note dated December 15, 2023. 73-year-old male seen again in room 253. The patient remains on mechanical ventilator. Blood gases show pO2 of 78, pCO2 of 36, pH of 7.47. The patient is getting saline at KVO, and Nepro at 50 cc an hour which is goal. The patient did a spontaneous breathing trial yesterday, and went about 6 hours on PSV 5, CPAP of 5. The patient's procalcitonin level was elevated at 1.92. We added back Zosyn. Yesterday we did sputum, blood, urine, and wound cultures. The patient will have another spontaneous breathing trial today. Current labs include a white count 16.3, hemoglobin 7.5, hematocrit 22.6, and a normal platelet count. Sodium 138, potassium 3.5, chlorides 105, CO2 24, BUN 125, and creatinine 3.22. Glucose is 220. Calcium is 6.9. Chest x-ray shows a right- sided pleural effusion, and some similar changes, to the previous x-ray. This is a 73-year-old white male with history of chronic abdominal pain for the last 8 months has been treated with Protonix 40 mg daily for the last 3 months with no improvement. Patient had a 22 pound weight loss in the last [address] of the abdomen and pelvis 3 weeks ago showed thickening of the antral wall with pathological adenopathy posterior to the stomach suspicious of neoplasm. Today the patient underwent elective upper endoscopy to evaluate further, patient received IV sedation by anesthesia endoscope was inserted into the mouth, esophagus was intubated without any difficulty there was evidence of large amount of liquid and solid food noted in the stomach suggestive of gastric out let obstruction. Scope could not be advanced through the pylorus, however in the prepyloric area there was a large superficial ulceration identified with multiple biopsies were done from this area. The body cardia and fundus could not adequately visualize because of large amount of retained food in the stomach. Scope was withdrawn back to the stomach and upon careful examination the mucosa of the antrum body and cardia as well as the fundus appeared normal. Procedure was being performed and biopsies were done patient threw up and subsequently became hypoxic there was clearly evidence of witnessed aspiration anesthesia intubated the patient, procedure was terminated, and the patient was transferred to the ICU, this consult was initiated. Patient is now on assist- control rate of 20 tidal volume 500 FiO2 70% PEEP of 10 ABG is pending, earlier ABG showed profound hypoxia patient is on propofol at 50 mcg/kg/min, next ABG is pending. Chest x-ray showed chronic changes without evidence of acute pulmonary disease. 12/20/2023, the patient is being seen for a follow-up. More alert and awake compared to yesterday. He is able to move his fingers and toes on today's evaluation. Following commands. Nevertheless, his J tube has been clogged and was unable to utilize the tube that has been some leaks around the tube. No abdominal distention. No nausea or emesis. Hemodynamically stable. Will undergo hemodialysis today. He remains on pressure control mode of mechanical ventilation at rate of 16, pressure of 10, +5 PEEP with an FiO2 of 30%. Chest x-ray from today is essentially unchanged with a stable cavity in his right upper lobe. White cell count of 15.7, hemoglobin 7.2, platelet count is 203, blood gas showed a pH of 7.49 with a pCO2 of 33 and pO2 of 73. BUN is 88 with a creatinine 1.89 and sodium is at 141 with a potassium level of 4.1. He is producing adequate amount of urine output. Fluid balance has been -900 cc over the past 24 hours. Normotensive. Remains on a combination of Zosyn and daptomycin. Remains on Levemir insulin 24 units daily. This is currently on hold as the patient has not been able to obtain enteral feeding. Wound VAC still in place. 12/21/2023, the patient remains on the mechanical ventilator. Overnight, the patient experienced discomfort in his abdomen and he was restless. Based on that, the patient was placed on a higher dose of Precedex which is currently running at 0.6 mcg/kg/h. The patient was also asynchronous with the mechanical ventilator and based on that, the patient was switched to an AC mode and currently is at a rate of 16, tidal volume of 400, FiO2 of 30% with a PEEP of 5. The patient is adequately sedated for now. Chest x-ray remains unchanged. Tracheostomy tube in place and the patient is having increased amount of respiratory secretions. J tube needs to be replaced today and this will be done by his general surgery as the tube remains clogged. Urine output is low order of 30 cc an hour. Afebrile. Remains on Zosyn and daptomycin. White cell count is 16.9, hemoglobin 7.4 and a platelet count of 280. Blood gas from today showed a pH of 7.46 with a pCO2 of 36 and pO2 of 82. Sodium levels of 144, BUN is 19 with a creatinine of 2.2 and a serum bicarb is at 23. The abdominal wound remains unchanged. RAYA drain is serosanguineous. 12/22/2023, patient remains on Precedex at 0.4 mcg/kg/min. Arousable. Communicates. Profoundly weak. Remains on the mechanical ventilator with a rig ht lung abscess. SIMV mode mode rate of 16, tidal volume of 400, FiO2 30% with a PEEP of 5, with a pressure support of 8. Blood gas showed a pH of 7.46 with a pCO2 of 32 and a pO2 of 82. Chest x-ray remains unchanged with a right upper lobe cavitating lesion/opacity and a suspected lung abscess. This is rated Pseudomonas and the patient remains on IV Zosyn. He remains on daptomycin. Urine output is in order of 50 cc an hour.. The J-tube was unplugged yesterday. Nevertheless, the tube itself is malfunctioning and there is drainage around the tube requiring dressing changes the dressings being soakedConstantly. The patient's white cell count is 12.3 with a hemoglobin 7.7. Sodium is at 149, BUN 91 with a creatinine of 2.3. Bicarb is at 20. Undergoing hemodialysis periodically. Last hemodialysis was on 12/21/2023. Currently NPO. Abdominal wound is clean and the patient has a wound VAC in place. RAYA drain output is serosanguineous. Patient was seen today on 12/23/2023, remains in the ICU, intubated and mechanically ventilated. Patient is on IMV with pressure support/IMV 16, pressure support of 8, tidal volume 400, PEEP of 5. Patient seems to be doing well with that kind of mode of mechanical ventilation, ABG showed a pO2 of 76 pCO2 28 pH of 7.50. I changed his rate from 16-8 kept him otherwise on the same ventilator settings. Plan to gradually go down on the IMV rate until we can get him on pressure support of 8 and CPAP. Patient is requiring Precedex at 0.4 m cg/kg/h, he is on D5W at 50 cc/h. Remains on antibiotics in the form of daptomycin and Zosyn, chest x-ray continues to show bilateral airspace disease and right upper lobe lung abscess. Continues to have a bit of a leak from his J-tube being addressed by surgery has a wound VAC, and he had a RAYA drain. Mentation arce the patient is a bit more appropriate, opens his eyes, follows very simple instructions, seems to comprehend. Patient has a left brachial PICC line, he also has a left groin hemodialysis catheter. WBC count is 10.1 hemoglobin is 7 sodium is 149 potassium 4 chloride is 121 BUN is 86 creatinine 2.31. Blood sugar is 173. Remains on enteral feeding via J-tube, a bit of a leak is noted, and surgery is to address this. Sputum cultures have grown Klebsiella and Pseudomonas and remains on proper antibiotics Patient was seen and examined today on 12/24/2023, patient remains in the ICU, and mechanically ventilated. On IMV mode of 8 pressure support of 8 tidal volume 400 FiO2 30% and PEEP of 5 ABG showed a pO2 of 81 pCO2 32 pH of 7.45. Patient remains on daptomycin and Zosyn, remains on Precedex at 0.4 mcg/kg/h intermittently receiving Dilaudid for pain. Feeding arce is presently on hold, patient had a leak around the jejunostomy tube, surgery is recommending a trick le feed or TPN if could not use the J-tube. Patient is arousable follows simple instructions, and today I had a chance to get rid of the IMV mode, and I am recommending a pressure support of 8 and CPAP. For the last few hours the patient has been tolerating this mode of mechanical ventilation, however he is not quite ready to go to [facility] at this point. Chest x-ray continues to show significant opacity in the right upper lobe and airspace disease in the right lower lobe. Previously patient had a CT of the chest showing right upper lobe abscess. Again he remains on Zosyn and daptomycin.Labs today showed WBC count of 10.6 hemoglobin 7.8 sodium is 147, patient is now on D5W at 100 cc an hour his bicarb is 19 BUN 74 creatinine 2.08, gradually improving, his last hemodialysis was on the , nephrology is considering removing his dialysis catheter in the left groin and I believe that is appropriate patient was seen and examined today on 12/25/2023, remains in the ICU, intubated and mechanically ventilated. Patient had to be placed back on assist-control mode of mechanical ventilation yesterday, mostly because he developed significant agitation and restlessness, and ongoing persistent cough with some air leak from the cough of that tracheostomy. Patient had to be sedated and he was placed on propofol and he remains on propofol at 50 mcg/kg/min. Maximal dose of Precedex yesterday could not calm him down, hence we had to transition him from pressure support/CPAP mode of mechanical ventilation to assist-control mode of mechanical ventilation and fully sedated him with propofol replacing Precedex. Today the patient is sedated, he is on assist-control rate of 16 ti sierra volume 400 FiO2 30% PEEP of 5 ABG showed a pO2 of 98 pCO2 30 pH of 7.45 chest x-ray is basically the same showing significant airspace disease in the right upper lobe and right lower lobe. Remains on daptomycin and Zosyn. His IV fluid was transitioned to D5 4 5 from D5W sodium today is 141. His urine output is about 40 to 50 cc/h, renal profile is improving with steady trending of creatinine down. Patient continues to have leakage around the jejunostomy tube. Patient is being followed by surgery no specific recommendation made except to continue the same and except the leak as it isLabs today showed WBC count of 11.5 hemoglobin 8.2 basic metabolic profile is normal BUN is 60 creatinine down to 1.81 Patient seen today on 12/26/2023, remains in the ICU intubated mechanically ventilated sedated patient is on assist-control rate of 16 tidal volume 400 FiO2 30% PEEP of 5 ABG showed a pO2 of 82 pCO2 34 pH of 7.43. Patient is now on TPN at 30 cc/h propofol at 50 mcg/kg/min hemoglobin is down to 6.8 today and he is receiving a unit of packed RBCs. His IV fluids at 50 cc/h in the form of 0.9 normal saline. He was last night on a small dose of norepinephrine at 0.01 mcg/kg/min and is presently on hold. Antibiotics arce patient is on Zosyn daptomycin and Eraxis. Chest x-ray continues to show significant airspace disease involving the right upper lobe and right lower lobe not much of a change noted on the chest x-ray. Clinically the patient is about the same, today I plan to discontinue propofol, arrange for the patient to go on Precedex, and assess mental status off sedation. If tolerated, may transition the patient again to pressure support and CPAP type of mechanical ventilation, but he is not ready to go to that transition yet. WBC count is 11.6 hemoglobin 6.8. ABG today showed a pO2 of 82 pCO2 34 pH of 7.43 potassium is 3.3 being addressed accordingly BUN is 53 creatinine 1.84 Patient was evaluated today on 12/27/2023, remains in the ICU intubated and mechanically ventilated. Patient is presently on IMV mode of mechanical ventilation with pressure support rate of 16 pressure support 14 tidal volume 400 FiO2 30% and PEEP of 5 ABG showed a pO2 of 99 pCO2 31 pH of 7.44. Intermittently the patient has been experiencing episodes of extreme agitation and restlessness he is on Precedex at 0.5 mcg/kg/h. Patient is on IV fluid 0.9 normal saline at 50 cc/h and is also receiving TPN. Remains on Eraxis daptomycin and Zosyn patient is intermittently requiring Dilaudid, Ativan does not seem to help his agitation and restlessness. But Dilaudid does hence I would recommend 0.5 mg every 2-3 hours as needed for agitation. Patient has good urine output roughly about 100 cc/h. Continues to have leakage around the jejunostomy tube, and patient is undergoing the J-tube exchange today. Family is at bedside, seems to be quite anxious about his overall condition, and I explained to the that we are doing the best we can considering his critical illness situation and critical illness polyneuropathy. Patient is profoundly weak, and weaning the patient from mechanical ventilation is almost impossible. At least not at this point yet WBC count is 10.9 hemoglobin is 8.1 basic metabolic profile is normal BUN is 46 creatinine 1.90 patient has been off hemodialysis since the . Chest x-ray continues to show stable findings with right upper lobe opacity and right lower lobe opacity and possibly a small right-sided pleural effusion Was evaluated today on 12/28/2023, patient remains in the ICU, intubated and mechanically ventilated, on IMV mode of mechanical ventilation rate set at 16 he is on pressure support of 14 tidal volume 400 FiO2 30% and PEEP of 5 ABG showed a pO2 of 113 pCO2 31 pH of 7.43. No major events overnight, patient is still requiring Precedex at 0.7 mcg/kg/h. He is on TPN as we could not use his jejunostomy tube, no jejunostomy tube was done yesterday, IV fluid is 0.9 at 50 cc/h remains on TPN at 65 cc/h patient is on Eraxis daptomycin and Zosyn. Chest x-ray is showing improvement in his right upper lobe airspace disease/lung abscess and there is a slight improvement in his right lower lobe opacity. Kathryn ent is arousable but does not follow any instructions, patient gets agitated easily if aroused and he started gagging on the tracheostomy tube. Family is at bedside, again updated on his condition. WBC count is 7.6 hemoglobin 7.9. Basic metabolic profile is normal BUN is 45 creatinine down to 1.51 patient has not had any dialysis since 12/17, his renal functioning and urine output continues to improve, hence I am strongly recommending removing his dialysis catheter Patient was seen on 12/29/2023, remains intubated and mechanically ventilated, in the ICU, on IMV of 16 tidal volume 400 FiO2 30% PEEP of 5 ABG showed a pO2 of 105 pCO2 31 pH of 7.45. Remains on Precedex at 0.8 mcg/kg/h, remains on TPN at 65 cc/h IV fluid 0.45 at 50 mL/h remains on multiple antibiotics and antifungal including Eraxis daptomycin and Zosyn. His hemodialysis catheter has been removed, urine output has been excellent renal functioning is improving chest x- ray is showing improvement in his right upper lobe airspace disease/pulmonary abscess. Right lower lobe seems about the same with chronic opacity and possibly some small right-sided pleural effusion. Family is at bedside, patient is arousable but does not follow any instructions. Gets extremely restless and agitated easily hence patient is receiving Dilaudid which seems to be working much better for this patient than benzodiazepines. And we are trying to avoid Ativan, trying to avoid any propofol as much as possible. I believe his drainage from the jejunostomy tube is becoming less and less, hence we could start considering early next week arrangement to possibly transfer the patient to a select care specialty. In the meantime I am recommending that we go down on the IMV rate by 2 every 2 hours the goal is pressure support of 14 and IMV of 8. Progress note dated December 30, 2023. This is a 73-year-old male who is now been in the hospital for 48 days. The patient was admitted back on November 11. Currently, he is seen in the intensive care unit, room 253. The patient is currently on synchronized IMV mode, rate of 8, pressure support of 14, PEEP of 5, FiO2 30%, and a backup tidal volume of 400 cc. Blood gases showed a pO2 of 87, pCO2 of 31, and a pH of 7.42. The patient will be switched back to the volume assist-control mode, as he is not ready to be weaned. His minute volume is nearly 18 L/min. He is breathing at a rate of about 40 times per minute. He currently is on Precedex 0.8 mics per kilogram per minute, TPN at 90 cc an hour, and half-normal saline at 50 cc an hour. The patient continues on Zerbaxa, Eraxis, and daptomycin. White count 11.5, hemoglobin 8.1, hematocrit 25, platelet count of 78,000. Sodium 142, potassium 4.2, chlorides 119, CO2 20, BUN 42, and creatinine 1.22. Glucose is 178. Albumin is 1.9. Sputum from December 24 shows evidence of Citrobacter freundii and Pseudomonas aeruginosa. Blood cultures from the same day were positive for Staphylococcus. Chest x-ray shows extensive pleural-parenchymal opacities, in both lungs, and the chest x-ray is largely unchanged from the pre vious days x-ray. Progress note dated December 31, 2023. 73-year-old male now here in the hospital for 49 days. The patient was admitted way back on November 11. He is seen today in room 253. Family members are at the bedside. The patient currently is on volume assist-control, rate 32, tidal volume 400, FiO2 30%, PEEP of 5. Blood gases show pO2 of 94, pCO2 of 35, pH is 7.40. Unfortunately, the patient is not synchronous with the ventilator, and so we switched to pressure regulated volume control or VC plus. We set an inspiratory time at 0.8 seconds, and the targeted tidal volume of 450 cc. The patient is on TPN at 70 cc an hour, saline at KVO, propofol at 40 mcg/kg/min. The patient continues on Eraxis, daptomycin, and Zerbaxa. Current labs include a white count 12.8, hemoglobin 7.3, hematocrit 22.4, and a platelet count of 67,000. Sodium 140, potassium 3.6, chlorides 119, CO2 20, BUN 43, creatinine 1.15. Glucose is 223. Calcium is 6.8. Today's chest x-ray is largely unc hanged. Progress note dated January 01, 2024. 73-year-old male seen again in room 253. The patient has not been in the hospital for 50 days. The patient continues on the mechanical ventilator. He is on pressure regulated volume control, or VC plus. His target tidal volume is 450 cc and his inspiratory time RTI is 0.8 seconds. His respiratory rate is 32. PEEP is 5, and FiO2 is 30%. Blood gases show pO2 of 98, pCO2 of 34, and a pH of 7.40. The patient continues on propofol at 15 mcg/kg/min, and TPN at 90 cc an hour. The patient also continues on Zerbaxa, daptomycin, and Eraxis. White count is 12.1, hemoglobin 7, hematocrit 22.0, and platelet count 69,000. Sodium 141, potassium 4.3, chlorides 120, CO2 19, BUN 44, creatinine 1.11. Calcium is 7. Chest x-ray shows a right-sided pleural effusion, with adjacent atelectasis and/or consolidation. There is a small left-sided pleural effusion as well. Progress note dated January 02, 2024. 73-year-old male seen again in room 253. The patient has not been here in the hospital for 51 days. He remains on mechanical ventilator. He is on the pressure regulated volume control modality no also noted his VC plus. The patient is on a rate of 32 breaths/min, PEEP of 5, FiO2 30%, inspiratory time her TI was 0.8, and a target tidal volume of 450 cc. Blood gases show pO2 of 90, pCO2 34, pH is 7.40. The patient is receiving TPN at 90 cc an hour, propofol at 20 mcg/kg/min, and has received a total of 6 units of packed red blood cells. The patient is going to get Dilaudid and Ativan scheduled. Dilaudid will be 1 mg every 2 hours, and Ativan 1 mg every 6 hours. The patient continues on daptomycin, Eraxis, and Zerbaxa. White count is 10, hemoglobin 6.5, hematocrit 20.3, platelet count 83,000. Sodium 140, potassium 4.6, ch lorides 119, CO2 20, BUN 45, creatinine 1.08. Most recent cultures are from December 24, showing evidence of Citrobacter from the and Pseudomonas aeruginosa, in the sputum. Blood cultures, on the same day, show evidence of Staphylococcus species. Chest x-ray shows extensive pleural-parenchymal opacities in the right hemithorax, and patchy opacity at the left lower lobe area. Progress note dated January 03, 2024. 73-year-old male seen in room 253. The patient has now been in the hospital for 52 days. He remains on mechanical ventilator, with the modality being the pressure regulated volume control modality, also known as VC plus. The patient's inspiratory time is 0.8 seconds, and his targeted tidal volume is 450 cc. Rate is 32, FiO2 30%, PEEP of 5. Blood gases show pO2 of 95, pCO2 of 34, pH of 7.41. The patient is on TPN at 90 cc an hour, propofol at 15 mcg/kg/min, saline at 10 cc an hour. Daptomycin and Eraxis have been discontinued. Zerbaxa is on day #6 of . We are going to DC the metoprolol and midodrine from the [facility]. Apparently, the patient has been denied twice, to the terminal [facility] acute care facility by his insurance. White count is 1.5, hemoglobin 8, macro 24.4, platelet count 78,000. Sodium 139, potassium 5.3, chlorides 119, CO2 20, BUN 44, creatinine 1.05. Glucose 192. Calcium 7.1. Magnesium 1.8. The chest x- ray today, is largely unchanged. Objective - Vital Signs Vital signs: Vital Signs Temp 97.6 F 01/03/24 04:00 Pulse 90 01/03/24 07:54 Resp 32 H 01/03/24 07:00 BP 130/85 01/03/24 02:00 Pulse Ox 97 01/03/24 07:00 FiO2 30 01/03/24 07:30 Intake & Output 01/02/24 01/03/24 01/03/24 18:59 06:59 18:59 Intake Total 4160 1233.000 192.002 Output Total 830 1715 125 Balance 3330 -482.000 67.002 Weight 104.2 kg Intake: IV 1719 1133 103 0.9 159 143 13 Anidulafungin 100 mg In 100 Sodium Chloride 0.9% 100 ml @ 84 mls/hr IVPB DAILY [facility] Rx#:[id number] Ceftolozane/Tazobactam 3 100 gm In Sodium Chloride 0.9 % 100 ml @ 100 mls/hr IV Q8H [facility] Rx#:[id number] DAPTOmycin 600 mg In 100 Sodium Chloride 0.9% 50 ml @ 100 mls/hr IVPB Q24H [facility] Rx#:[id number] Invasive Line 2 90 TPN 1170 990 90 Intake, IV Titration 2131 100.000 89.002 Amount Mvi, Adult No.4 with Vit 2031 K 10 ml Trace (Conc-1Ml/ Dose) 1 ml Potassium Acetate 40 meq In Amino Acid 5%-D15w+Lytes*E* 2, 000 ml @ 90 mls/hr IV . [id number] [facility] Rx#:[id number] propofoL 1,000 mg In 100 100.000 89.002 Empty Bag 1 bag @ 15 MCG/ KG/MIN 9.144 mls/hr IV . [id number] [facility] Rx#:[id number] Blood Product 310 Rc As-1 Unit 310 [id number] Output: Drainage 130 40 Right Abdomen 130 40 Urine 700 1675 125 Other: Voiding Method Indwelling Catheter Indwelling Catheter ABP, PAP, CO, CI - Last Documented Arterial Blood Pressure 137/68 - Exam No acute distress, somewhat lethargic, in no acute distress, with a midline tracheostomy tube. HEENT examination is grossly unremarkable. Neck supple. Full range of motion. No adenopathy thyromegaly or neck vein distention. Midline tracheostomy tube noted. Cardiovascular examination reveals regular rhythm rate. S1-S2 normal. No S3 or S4. No discernible murmur noted. Lungs reveal mild scattered rhonchi. No wheezes or crackles. Breath sounds equal. Abdomen soft, without bowel sounds. Midline incision, there is for the most part intact, although there is some purulence noted, with some minimal dehiscence Extremities are intact. No cyanosis clubbing or edema. Skin is without rash or lesion. Neurologic examination is difficult to assess. - Labs CBC & Chem 7: 01/03/24 04:25 01/03/24 04:25 Labs: Abnormal Lab Results - Last 24 Hours (Table) 01/02/24 01/02/24 01/02/24 Range/Units 09:30 12:15 16:39 WBC (3.8-10.6) k/uL RBC (4.30-5.90) m/uL Hgb (13.0-17.5) gm/dL Hct (39.0-53.0) % RDW (11.5-15.5) % Plt Count (150-450) k/uL ABG pCO2 (35-45) mmHg ABG O2 Saturation (94-97) % Hemoglobin (13.0-17.5) gm/dL Potassium (3.5-5.1) mmol/L Chloride (98-107) mmol/L Carbon Dioxide (22-30) mmol/L BUN (9-20) mg/dL Glucose (74-99) mg/dL POC Glucose (mg/dL) 151 H 152 H (70-110) mg/dL Calcium (8.4-10.2) mg/dL Crossmatch See Detail 01/02/24 01/03/24 01/03/24 Range/Units 16:40 00:04 04:25 WBC 11.9 H 11.5 H (3.8-10.6) k/uL RBC 2.66 L 2.65 L (4.30-5.90) m/uL Hgb 7.9 L 8.0 L (13.0-17.5) gm/dL Hct 24.4 L 24.4 L (39.0-53.0) % RDW 17.9 H 18.0 H (11.5-15.5) % Plt Count 120 L 78 L (150-450) k/uL ABG pCO2 (35-45) mmHg ABG O2 Saturation (94-97) % Hemoglobin (13.0-17.5) gm/dL Potassium (3.5-5.1) mmol/L Chloride (98-107) mmol/L Carbon Dioxide (22-30) mmol/L BUN (9-20) mg/dL Glucose (74-99) mg/dL POC Glucose (mg/dL) 155 H (70-110) mg/dL Calcium (8.4-10.2) mg/dL Crossmatch 01/03/24 01/03/24 01/03/24 Range/Units 04:25 05:12 06:16 WBC (3.8-10.6) k/uL RBC (4.30-5.90) m/uL Hgb (13.0-17.5) gm/dL Hct (39.0-53.0) % RDW (11.5-15.5) % Plt Count (150-450) k/uL ABG pCO2 34 L (35-45) mmHg ABG O2 Saturation 98.1 H (94-97) % Hemoglobin 7.8 L (13.0-17.5) gm/dL Potassium 5.3 H (3.5-5.1) mmol/L Chloride 119 H (98-107) mmol/L Carbon Dioxide 20 L (22-30) mmol/L BUN 44 H (9-20) mg/dL Glucose 146 H (74-99) mg/dL POC Glucose (mg/dL) 54 L (70-110) mg/dL Calcium 7.1 L (8.4-10.2) mg/dL Crossmatch 01/03/24 Range/Units 06:32 WBC (3.8-10.6) k/uL RBC (4.30-5.90) m/uL Hgb (13.0-17.5) gm/dL Hct (39.0-53.0) % RDW (11.5-15.5) % Plt Count (150-450) k/uL ABG pCO2 (35-45) mmHg ABG O2 Saturation (94-97) % Hemoglobin (13.0-17.5) gm/dL Potassium (3.5-5.1) mmol/L Chloride (98-107) mmol/L Carbon Dioxide (22-30) mmol/L BUN (9-20) mg/dL Glucose (74-99) mg/dL POC Glucose (mg/dL) 192 H (70-110) mg/dL Calcium (8.4-10.2) mg/dL Crossmatch Assessment and Plan Assessment: Acute hypoxemic respiratory failure with failure to wean from mechanical ventilation, S/P tracheostomy/PEG tube on December 10, 2023. Respiratory failure, requiring reintubation, on November 25, 2023. Acute hypoxic respiratory failure requiring intubation/mechanical ventilation secondary to aspiration during EGD on 11/12/2023. Patient was extubated on 11/14/2023. S/P J-tube placement 11/16/2023, which continues to leak. Septic shock. Acute kidney injury secondary to sepsis, and ATN. Acute bowel obstruction, diagnosed via CT scan, November 24, 2023. Acute aspiration pneumonia. Acute aspiration during upper endoscopy most likely secondary to gastric outlet obstruction secondary to non-Hodgkin's lymphoma. Chronic abdominal pain, secondary to B-cell lymphoma. Unexplained weight loss most likely secondary non-Hodgkin's lymphoma involving the stomach. Paroxysmal atrial fibrillation. Chronic anemia. Plan: Plan dated November 21, 2023. The patient is seen today in room 517. The patient is on 3 L of oxygen. He continues on Zosyn. Continues on tube feeds. He had a CT scan of the abdomen and pelvis. His respiratory status is improved. We will continue to follow. Prognosis is guarded. Labs, x-rays, medications are reviewed. The patient is apparently scheduled for an outpatient PET scan. Plan dated November 22, 2023. The patient appears very stable. His is in the room with him. Labs, x- rays, and medications are reviewed. The patient continues on Zosyn. Resting room air saturation was 89%. Chest CT, revealed bilateral patchy and basilar infiltrates. We will continue to follow make recommendations along the way. Prognosis is guarded. The patient was diagnosed with a gastric outlet obstruction, secondary to non-Hodgkin's lymphoma. Plan dated November 23, 2023. The patient is seen today in room 517. He is resting comfortably. He continues on saline at 10 cc an hour. He is getting tube feedings with Pivot at 20 cc an hour. He has been weaned down to 2 L of oxygen. He continues on Zosyn. Labs, x-rays, and all medications are reviewed. Prognosis is guarded. We will continue to follow. Plan dated November 24, 2023. The patient will be admitted to the intensive care unit. I believe he deserves to be an ICU patient. I did speak to the surgeon. Labs, x-rays, and medications are reviewed. No additional recommendations are made. Prognosis is guarded. The patient has now been in the hospital for 12 days. We will continue to follow. He continues on Zosyn. Plan dated December 14, 2023. The patient is seen today in room 253. Currently, the patient is on the ventilator. He will have another PSV/CPAP trial. Apparently yesterday, he went for about 2-1/2 hours before he required to be placed back on the ventilator. The patient is getting saline at 10 cc an hour, and Nepro tube feedings at 50 cc an hour, which is goal. The patient had a fever, and will be recultured. In addition, the midline incision in the abdomen, shows some evidence of purulence, and will have a surgeon, take a look at that. Currently, the patient is not on any antibiotics. We will recheck a procalcitonin level. One of the family members was in the room, and was updated. Plan dated December 15, 2023. The patient actually spent about 6 hours on pressor support yesterday. The patient will have another spontaneous breathing trial today. The patient remains off of all sedation. He is getting Ativan and Dilaudid as needed. He is receiving tube feedings at goal. Labs, x-rays, and medications are reviewed. The repeat procalcitonin level was elevated at 1.92. We added Zosyn empirically. He had pancultures done yesterday. Labs, x-rays, and all medications are reviewed. Prognosis is guarded. An update was given to the daughter and to the right. Dictation was produced using [employer] software. Please excuse any grammatical, word or spelling errors. Plan dated December 30, 2023. The patient is seen today in room 253. The patient has now been in the hospital for 48 days. He was admitted way back on November 11. The patient currently is not ready to be weaned, given his high respiratory rate, and high minute volume. The patient is converted back to volume assist-control. In addition, the patient continues on Zerbaxa, Eraxis, and daptomycin, because of recent in fections, including Pseudomonas, and Citrobacter, as well as Staphylococcus. Labs, x-rays, and medications are reviewed. The patient will continue on a small dose of propofol, Dilaudid as needed, and Ativan. Dexmedetomidine which is currently running was to be discontinued. Additional recommendations and suggestions are forthcoming. Prognosis is poor in my opinion. The patient remains a full code. The remains hopeful. Dictation was produced using [employer] software. Please excuse any grammatical, word or spelling errors. Plan dated December 31, 2023. The patient is seen today in room 253. Family members are at the bedside. After observing the patient on the ventilator, for period of time, it was clear to me, the patient was not synchronous with the ventilator. For that reason, we switched from volume assist-control, to pressure regulated volume control or VC plus. The patient had a inspiratory time of 0.8 seconds, and a targeted tidal volume of 450 cc. Everything else stayed the same. After switching, the patient's respiratory rate came down, as did his minute volume. He appeared much more comfortable. Labs, x-rays, medications are reviewed. The patient continues on Zerbaxa, Eraxis, and daptomycin. We will continue to follow. Prognosis is guarded. No additional recommendations are made. The patient is on propofol at 40 mcg/kg/min. I have asked the nurses to use both Ativan every 6 hours, and Dilaudid every 2 hours as needed, to see if we can get him on a small dose of propofol so that we can send the patient to long-term acute care facility. Prognosis is guarded. Dictation was produced using [employer] software. Please excuse any grammatical, word or spelling errors. Plan dated January 01, 2024. The patient is seen today in room 253. I had a long conversation with the patient's family yesterday. It was encouraged, by the primary service, Dr. Rowe. Dr. Rowe also talked to the family about CODE STATUS, and the po ssibility of a palliative care consult or hospice consultation. The patient is chronically and critically ill, but stable. The patient remains on the mechanical ventilator, and is not able to be weaned at this time. Previous attempts at weaning, has caused significant increases in respiratory rate, significant increases in minute volume, and disruptions of his vital signs. The patient continues on Zerbaxa, daptomycin, and Eraxis. The patient is on a relatively smaller dose of propofol at 15 mcg/kg/min. I have encouraged the nurse to wean that down even further. In addition to propofol, the patient is receiving Ativan, and Dilaudid as needed. Labs, x-rays, medications are reviewed. The patient could be considered for possible discharge to long-term acute care facility or select specialty. Plan dated January 02, 2024. I have ongoing discussions with the family. The patient is doing very poorly in my opinion, and is currently not weanable. The patient, could be transferred to a long-term acute care facility or specialized nursing facility. We are attempting to get his propofol dose down to a reasonable level. I did asked the nurses to make sure that the patient got his Dilaudid, and Ativan, as scheduled medications. The patient blood gases are excellent. pO2 is 90, pCO2 is 34, pH is 7.40. The patient remains on pressure regulated volume control modality of ventilation. Labs, x-rays, and all medications are reviewed. The patient is overall prognosis remains poor. The patient remains a full code patient. I did have a long talk with the patient's just a few days ago. Plan dated January 03, 2024. The patient is seen again in room 253. The , and one of the family members at the bedside. The patient continues on mechanical ventilation, and at this time, cannot be weaned. The patient is getting TPN at 90 cc an hour, propofol at 15 mcg/kg/min. The patient is receiving saline at 10 cc an hour. We were in contact with the infectious disease doctor. Daptomycin and Eraxis were discontinued. The patient is on day #6 of 10, on Zerbaxa. Metoprolol and midodrine were discontinued from the [facility]. The patient's insurance denied transfer to a long-term acute care facility twice now. Labs, x-rays, medications are reviewed. The patient is overall prognosis is very poor. Today's peak airway pressure is 19 cm of water. The Plateau pressure is 11 cm of water. We will continue to follow the patient, make recommendations along the way. I have had ongoing discussions with the patient's . Time with Patient: Greater than 30
[2024-01-03 12:39] LABS: Glucose,Whole Blood 150 mg/dL (70-110)
--- NOTE | 2024-01-03 14:47 | P.PN ---
Subjective Progress Note Date: 01/03/24 CHIEF COMPLAINT: Abdominal pain HISTORY OF PRESENT ILLNESS: Patient remains in the ICU on mechanical vent ilation. Has tracheostomy. Patient with positional cuff leak from the tracheostomy. Patient is holding his volumes. With sedation is tolerating ventilator. Patient continues to have leaking from the J-tube. J-tube is currently to drainage and has bilious output. Tube feeds are on hold. He has TPN for nutrition support. PHYSICAL EXAM: VITAL SIGNS: Reviewed. GENERAL: no acute distress. HEENT: Tracheostomy site clean dry and intact ABDOMEN: Soft. Nondistended. Midline incision with wound VAC in place and intact. J-tube with drainage around site. ASSESSMENT: 1. 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 Status post J-tube placement and revision for small bowel obstruction 2. Abdominal wound dehiscence status post wound VAC placement 3. Status post tracheostomy PLAN: -At this time no plan to exchange J-tube -Keep J-tube to drainage -Continue to hold tube feeds -Continue wound VAC to be changed Saturday/Saturday/Saturday -Continue TPN for nutrition support -Continue Triad barrier cream around J-tube -Dr. Irby did discuss goals of care with family again at bedside -Overall prognosis is poor. Insurance denied transfer to termite treater care facility again. Physician Mac Developer note has been reviewed by physician. Signing provider agrees with the documented findings, assessment, and plan of care. Objective - Vital Signs Vital signs: Vital Signs Temp 98.4 F 01/03/24 12:00 Pulse 88 01/03/24 12:53 Resp 32 H 01/03/24 12:00 BP 130/85 01/03/24 02:00 Pulse Ox 98 01/03/24 12:00 FiO2 30 01/03/24 12:38 Intake & Output 01/02/24 01/03/24 01/03/24 18:59 06:59 18:59 Intake Total 4160 1233.000 707.002 Output Total 830 1715 91878 Balance 3330 -482.000 -22534.998 Weight 104.2 kg 104.2 kg Intake: IV 1719 1133 618 0.9 159 143 78 Anidulafungin 100 mg In 100 Sodium Chloride 0.9% 100 ml @ 84 mls/hr IVPB DAILY [facility] Rx#:[id number] Ceftolozane/Tazobactam 3 100 gm In Sodium Chloride 0.9 % 100 ml @ 100 mls/hr IV Q8H [facility] Rx#:[id number] DAPTOmycin 600 mg In 100 Sodium Chloride 0.9% 50 ml @ 100 mls/hr IVPB Q24H [facility] Rx#:[id number] Invasive Line 2 90 TPN 1170 990 540 Intake, IV Titration 2131 100.000 89.002 Amount Mvi, Adult No.4 with Vit 2031 K 10 ml Trace (Conc-1Ml/ Dose) 1 ml Potassium Acetate 40 meq In Amino Acid 5%-D15w+Lytes*E* 2, 000 ml @ 90 mls/hr IV . [id number] [facility] Rx#:[id number] propofoL 1,000 mg In 100 100.000 89.002 Empty Bag 1 bag @ 15 MCG/ KG/MIN 9.144 mls/hr IV . [id number] [facility] Rx#:[id number] Blood Product 310 Rc As-1 Unit 310 [id number] Output: Drainage 130 40 46748 Right Abdomen 130 40 80 wound vac 93014 Urine 700 1675 1185 Other: Voiding Method Indwelling Catheter Indwelling Catheter Indwelling Catheter ABP, PAP, CO, CI - Last Documented Arterial Blood Pressure 144/70 - Labs CBC & Chem 7: 01/04/24 05:00 01/04/24 05:00 Labs: Abnormal Lab Results - Last 24 Hours (Table) 01/02/24 01/02/24 01/02/24 Range/Units 09:30 16:39 16:40 WBC 11.9 H (3.8-10.6) k/uL RBC 2.66 L (4.30-5.90) m/uL Hgb 7.9 L (13.0-17.5) gm/dL Hct 24.4 L (39.0-53.0) % RDW 17.9 H (11.5-15.5) % Plt Count 120 L (150-450) k/uL ABG pCO2 (35-45) mmHg ABG O2 Saturation (94-97) % Hemoglobin (13.0-17.5) gm/dL Potassium (3.5-5.1) mmol/L Chloride (98-107) mmol/L Carbon Dioxide (22-30) mmol/L BUN (9-20) mg/dL Glucose (74-99) mg/dL POC Glucose (mg/dL) 152 H (70-110) mg/dL Calcium (8.4-10.2) mg/dL Crossmatch See Detail 01/03/24 01/03/24 01/03/24 Range/Units 00:04 04:25 04:25 WBC 11.5 H (3.8-10.6) k/uL RBC 2.65 L (4.30-5.90) m/uL Hgb 8.0 L (13.0-17.5) gm/dL Hct 24.4 L (39.0-53.0) % RDW 18.0 H (11.5-15.5) % Plt Count 78 L (150-450) k/uL ABG pCO2 (35-45) mmHg ABG O2 Saturation (94-97) % Hemoglobin (13.0-17.5) gm/dL Potassium 5.3 H (3.5-5.1) mmol/L Chloride 119 H (98-107) mmol/L Carbon Dioxide 20 L (22-30) mmol/L BUN 44 H (9-20) mg/dL Glucose 146 H (74-99) mg/dL POC Glucose (mg/dL) 155 H (70-110) mg/dL Calcium 7.1 L (8.4-10.2) mg/dL Crossmatch 01/03/24 01/03/24 01/03/24 Range/Units 05:12 06:16 06:32 WBC (3.8-10.6) k/uL RBC (4.30-5.90) m/uL Hgb (13.0-17.5) gm/dL Hct (39.0-53.0) % RDW (11.5-15.5) % Plt Count (150-450) k/uL ABG pCO2 34 L (35-45) mmHg ABG O2 Saturation 98.1 H (94-97) % Hemoglobin 7.8 L (13.0-17.5) gm/dL Potassium (3.5-5.1) mmol/L Chloride (98-107) mmol/L Carbon Dioxide (22-30) mmol/L BUN (9-20) mg/dL Glucose (74-99) mg/dL POC Glucose (mg/dL) 54 L 192 H (70-110) mg/dL Calcium (8.4-10.2) mg/dL Crossmatch 01/03/24 Range/Units 12:37 WBC (3.8-10.6) k/uL RBC (4.30-5.90) m/uL Hgb (13.0-17.5) gm/dL Hct (39.0-53.0) % RDW (11.5-15.5) % Plt Count (150-450) k/uL ABG pCO2 (35-45) mmHg ABG O2 Saturation (94-97) % Hemoglobin (13.0-17.5) gm/dL Potassium (3.5-5.1) mmol/L Chloride (98-107) mmol/L Carbon Dioxide (22-30) mmol/L BUN (9-20) mg/dL Glucose (74-99) mg/dL POC Glucose (mg/dL) 150 H (70-110) mg/dL Calcium (8.4-10.2) mg/dL Crossmatch Assessment and Plan Assessment: s/p j tube placement 2/2 failure to thrive -j tube leaking 2/2 non healing -continue nutrition Time with Patient: Greater than 30
--- NOTE | 2024-01-03 15:14 | P.PN ---
Progress Note - Text Progress Note Date: 01/03/24 Chief Complaint: On the ventilator This is a 73-year-old patient, follows with Dr. Patricia Deal. Patient was seen this morning in the ICU. Patient's and daughter at the bedside. History obtained predominantly by the . Patient been having trouble with his stomach symptoms for close to 8 months. Patient underwent EGD by Dr. Sahara Cheng yesterday. Patient was found to have ulcerated around the antrum and obstruction to the pylorus. A lot of retained food was found. Patient aspirated. Had to be intubated and brought to the ICU. On a Levophed drip. FiO2 50 and a PEEP of 6. Patient had been losing weight lost about 25 pounds. Previously has a history of mitral valve prolapse. November 13: ICU. Patient remains on Precedex drip and propofol drip. Did not do well attempted extubation yesterday. Patient been off Levophed. NG tube to suction. Spoke to patient's and son at the bedside. Biopsy results awaited. Hemoglobin dropped to 6.9 this morning. Get a unit of blood. November 14: ICU. Up in a chair. Extubated yesterday. NG tube to suction. at the bedside. 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 Oncology was consulted. They have ordered a port. Results discussed with Dr. Sahara Cheng. General surgery was consulted for J-tube placement. Discussed with at the bedside. Patient getting IV fluids, IV Zosyn,. Patient has been on IV amiodarone for A-fib-back in sinus rhythm. Multiple PACs. Did receive unit of blood yesterday. Also IV ferric gluconate. November 15: ICU. Patient earlier today underwent jejunostomy tube placement and a port placement. Patient awake. Answering questions. NG tube to suction present. Updated patient's . Patient remains on IV amiodarone and IV Zosyn. November 16: ICU. Up in the chair. NG tube present but not to suction. Trickle feeding through the jejunostomy tube should be started today. Dietitian has been on board. IV Zosyn to continue. Patient's and his sister at the bedside. Discussed. Also spoke with Dr. Serna. Given patient has no other predisposing cardiac factors for the A-fib except acute illness. His LV function is normal. Left atrium is normal. He has already been loaded with IV amiodarone. Will switch him to oral Lopressor 12.5 twice daily. Hence will DC amiodarone. Patient yesterday had wheezing was put on bronchodilators steroids per pulmonary. November 17: Propped up in bed. NG tube was discontinued. Sinus rhythm. Remains NPO. Getting G-tube feeding at 40 cc an hour. Dietitian following. Get arrangements done for DC home tomorrow including tube feeding. Increase activity discussed with patient and elder daughter at the bedside. Still requiring oxygen. Incentive spirometry. November 18: Patient up in recliner. Earlier today spoke to secondary social studies teacher David. Informed patient is rather weak and will be going to the [facility]. Looking at authorization. Denae came to the room and spoke to patient his and his daughter. They are very keen to take the patient home as 3 daughters all nurses and they will take care of him at home. Patient earlier today to abdominal cramping and some loose stools.'s tube feeding was held. Told the nurse to start back at the rate of 40 cc an hour. He was before the getting it at 55 cc an hour. Incentive spirometry was again emphasized. Patient remains on 4 L of oxygen. November 19: I saw the patient this morning. Hence I am in the evening. Morning was sitting with his sons. Has some edema. Lungs had crackles I gave him 40 mg of Lasix. He did make good urine. Tube feeding was held from the p revious evening of because of abdominal cramping. Acute abdominal series showed nonspecific bowel gas pattern and SBO to be ruled out. Family and patient was updated. Told him discharge will depend on day by day. Later this afternoon CT scanAnd abdomen pelvis done. Showed small bowel to be 3 point centimeter dilated. Some anasarca. Gastric findings. Gallstones. Later spoke to Dr. Irby from general surgery. They will further review and decide about further plan of action. Will give further dose of IV Lasix because of fluid overload from likely hypoalbuminemia and IV fluids previously received. Patient may take his pills by mouth. Total time spent today about 1 hour with over 40 minutes of discussion. Patient did state his breathing is better after Lasix this morning. November 20: Saw the patient this morning. was present. Patient received 2 more doses of Lasix. Diuresed well. Breathing much better. Lungs are sounding better. Discussed with Dr. Zepeda other surgeon. He is taking 3 cc out of the balloon and the gastrostomy tube. Started trickle feeding at 5 cc an hour. Will see how this does. Later in the day ran into the and the daughter again. Did update them on the same. Dilaudid was discontinued yesterday but morphine was ordered by surgery for patient having pain. Concerns about GI issues with that we will DC the morphine. As family does not want the same. November 21: Patient reclining bed. Tired. Several family members at the bedside. Including his and eldest daughter. Patient started on trickle feed yesterday at 5 cc an hour. This morning he has been on 10 cc an hour. Still having some loose stools. C. difficile was ordered. Patient on 2 L of nasal cannula. Has diuresed well. Will give an additional dose of Lasix today. If C. difficile is negative and the diarrhea is from the tube feedings we may have to use a fecal management system to keep him comfortable. Otherwise patient remains NPO. Dietitian is following the patient. Care was discussed length with patient the and daughter at the bedside. Questions answered. Liquid Tylenol has been added for abdominal pain. Avoid narcotics. Elevated white count likely from Solu-Medrol 11/23/2023--patient was feeling better today. Multiple family member at bedside. No issues overnight. Normal saline at 10 cc an hour, tube feeding at 20 cc an hour, remains on Zosyn, on 3 L oxygen. Afebrile. Heart rate 62, respiratory rate 16, blood pressure 114/67, saturating 91% on 3 L. WBCs 14.5, 9.7 hemoglobin. Platelet 242. BMP is unremarkable. Pulmonary and general surgery following. General surgery recommended to continue tube feeds at 20 cc/h. 11/24/2023--patient reported significant abdominal discomfort, also noted to have leak around G-tube. General surgery is following, evaluated the patient at bedside, adjusted tube feeds. Also reported having diarrhea, on 2 L oxygen, went up to 5 L. Blood pressure was low, 500 mL fluid bolus with close monitoring of respiratory status ordered. Currently on DuoNebs, Solu-Medrol, will continue Zosyn. Chest x-ray showed a left lower lobe infiltrate. Abdominal x-ray showed multiple air-fluid levels. CT abdomen showed multiple dilated small bowel loops, consistent with obstruction, pneumoperitoneum, cholelithiasis and ascites. WBCs 14.1, platelet 255, hemoglobin 8.9. NG tube in place. Family at bedside. patient transferred to SICU for close monitoring. 11/25/23--patient is currently in the ICU, required Levophed overnight due to low blood pressure, low urine output with creatinine trending up. Nephrology following. Risk Consultant also following. Patient remains n.p.o., NG tube in place, following NG tube insertion patient had total of 2 L output, J-tube was draining approximately 200 cc over last 8 hours, continues to have abdominal pain and abdominal tenderness. Patient on IV fluids. Currently on 4 L oxygen. WBCs 8.2, hemoglobin 12.3, platelet 188. Chest x-ray earlier today showed right sided port and a stable left lung airspace disease, NG tube in place. Patient currently on Zosyn, on IV Dilaudid for pain control, on IV Solu-Medrol. General surgery planning for OR today, started on TPN. 11/26/23--patient was seen and examined today. Patient is currently sedated, intubated on mechanical ventilation. Family at bedside. Patient underwent ex lap, abdominal washout, small bowel resection with new feeding jejunostomy tube placement yesterday, small bowel was noted to be perforated with significant contamination of abdominal cavity. Patient is currently on vancomycin and Zosyn. Creatinine went up to 2.85, nephrology following, recommended to continue IV fluids, avoid nephrotoxin Preserved EF on echocardiogram.. Patient currently on Levophed, vasopressin in the ICU for close monitoring. Patient is afebrile, heart rate 122, blood pressure 129/76, currently on mechanical ventilation, sedated. November 26: ICU. Intubated. FiO2 60 and a PEEP of 5. Drips include IV amiodarone. Heart rate was up early did get fired microgram of IV digoxin and 2.5 mg of IV Lopressor. Did drop her blood pressure bit. Urine output was low. Received 80 mg of IV Lasix. Ahmet to 150 cc. Other drips include IV propofol, vasopressin, Levophed. TPN was started yesterday. Antibiotics include IV Zosyn and vancomycin. Patient has a J-tube to drainage to gravity. Spoke to patient's younger daughter and at the bedside. Prognosis guarded. Continue current treatment plan. Chest x-ray shows right lower lobe consolidation. Small pleural effusion. November 27: ICU. Intubated. FiO2 55 and a PEEP of 5. Antibiotics include IV vancomycin. Drips include Levophed at a small dose, IV vasopressin, propofol, amiodarone. Patient converted to sinus rhythm this morning. Getting TPN and normal saline at 75 cc an hour. Urine output about 25 cc an hour. RAYA drain put out about 260 cc last 12 hours that is last night shift supervisor. NG tube with bilious output. And also GI J-tube output to gravity. Spoke to patient's and daughter at the bedside. They understand patient still not out of the kee. Platelets have dropped-therefore probably Zosyn stopped. November 28: ICU. Intubated. FiO2 55 and a PEEP of 5. Patient is in sinus rhythm. Seen this morning. Due for dialysis catheter this afternoon. Urine output about 15 to 20 cc an hour. Patient is on IV Lasix 80 mg every 12. Saline is KVO. Drips include IV propofol vasopressin. Patient having significant output through the RAYA drain and the jejunostomy tube to drainage. Creatinine had been getting worse. Patient's at the bedside. Understands patient's remains critically ill. Hemoglobin is down to 7. Given that patient's pain hypotensive, and on vasopressin we will give a unit of blood with dialysis. Getting TPN antibiotic changed to IV meropenem November 29: ICU. Intubated. FiO2 55 and a PEEP of 5. Remains in sinus rhythm. Getting TPN. Dialyzed yesterday and this morning. About 1000 cc removed. Urine output about 50 cc an hour. Patient is on IV propofol. Off vasopressin. Still having significant output through the RAYA drain and jejunostomy tube. Patient received a second unit of blood yesterday. Patient's and daughter at the bedside. I did discuss guarded prognosis. Did asked them to revisit CODE STATUS.. Getting IV meropenem. November 30: ICU. Intubated. Did get a sedation holiday t today. Back on propofol. Getting TPN. Still getting IV Lasix. Fair urine output. Jejunostomy tube in last 8 hours was about 30 cc output. RAYA drain in the 8 hours had about 180 cc output. Telemetry shows sinus rhythm. NG tube has low intermittent suction with negative output. On the vent with FiO2 40 and a PEEP of 5. No hemodialysis today. Discussed with the and eldest daughter at the bedside. IV meropenem-patient's sputum had grown Citrobacter freundii and Pseudomonas aeruginosa. December 01: ICU. Intubated. Jejunostomy tube to gravity. Only 10 cc output in last 24 hours. RAYA drain. About 190 cc last 6 hours. Nasogastric tube to low intermittent suction. Minimal output. Patient is on a small dose of propofol 5 mics. Telemetry shows sinus rhythm. Patient started on small dose of Cleviprex this morning. Blood pressure. Getting TPN. FiO2 35 and PEEP of 5. Discussed with the at the bedside. Hemodialysis today December 02: ICU. Patient remains intubated. FiO2 35 PEEP of 5. Patient is on IV propofol. IV Cleviprex was discontinued yesterday. Also remains on TPN. Telemetry shows sinus rhythm. NG tube is good no output. Still significant output through the RAYA drain. Jejunostomy tube has minimal output. Patient had hemodialysis today 2 L of fluid was removed. Oral half liters yesterday. Patient getting a sedation holiday. General Surgery started the patient on trickle feeding at 10 cc an hour. I did speak to patient's at the bedside. Prognosis remains guarded but there is some improvement. December 03: ICU. Intubated. FiO2 35 PEEP of 5. Drips include IV propofol and Precedex. Getting TPN. Telemetry shows sinus rhythm. Remains on IV Lasix 80 mg twice a day. IV meropenem. Because patient gets easily agitated when transitioning off propofol he has been switched over to Precedex. For hemodialysis today. December 04: ICU. Intubated. FiO2 35 and a PEEP of 5. Patient been taken off propofol is on Precedex. Telemetry sinus rhythm. J-tube with minimal output. RAYA drain with decreased output. NG tube to suction minimal output. Family wanted to hold off trickle feeding until cleared by oncology. Which he did today. Trickle feeding will be started today. Spoke to patient's and one of the daughters at the bedside. Dr. Russ is spoken to the earlier this point they want to do further tracheostomy tube. October 4: ICU. Intubated. FiO2 35 PEEP of 5. Patient remains on Precedex and PPN. Patient's dialysis catheter was not functioning is getting another [address] Bobby this afternoon. Remains on IV meropenem. Has a RAYA drain in the jejunostomy tube to gravity. NG tube to low intermittent suction. No family at the bedside. December 06: ICU. Intubated. FiO2 35 PEEP of 5. RAYA drain putting out about approximately 120 cc per shift. Patient on IV Precedex. FiO2 35 PEEP of 5. Telemetry-sinus rhythm. Patient occasionally been put on small dose of Levophed specially for hemodialysis getting it today. Also started on midodrine for low blood pressure. Tolerating tube feeding at 10 cc an hour. Also had a bowel movement. Mentation has not improved. Even with sedation holiday. Neurology consulted. CT brain shows no acute process. December 07: ICU. Intubated. FiO2 35 PEEP of 5. Telemetry-sinus rhythm. NG tube to suction low intermittent minimal output. Getting TPN. Tube feeding at 20 cc an hour. RAYA drain averaging over 100 cc per shift. Remains on Precedex. EEG was done today. Discussed with at the bedside. Family is currently not inclined for tracheostomy tube today. Day 13 of being intubated December 08: ICU. Intubated. FiO2 35 PEEP of 5. Patient is put on back on propofol per flat cutter Dr. JIMENEZ. EEG did show some potential for spikes was put on Keppra by neurology. Telemetry shows sinus rhythm. NG tube to suction with no output. Tube feeding was put on hold because of questionable discharge on the site. Being restarted today. RAYA drain is 150 cc last 12-hour shift. Patient does open eyes. Family has decided to proceed with tracheostomy and surgery has been consulted for the same. Spoke to the at the bedside. For hemodialysis today. December 09: ICU. Intubated FiO2 35 PEEP of 5. Patient seen this morning. Pending tracheostomy placement this afternoon. Remains NPO. G-tube feeding was held overnight. RAYA drain putting out about 100 cc per shift. Received a unit of blood for hemoglobin of 6.6. On 25 mics of propofol. Getting TPN and meropenem. Spoke to the at the bedside. Patient became hypotensive with dialysis yesterday. Levophed had to be given. Only 800 cc were removed yesterday. No hemodialysis today. December 10: ICU . FiO2 35, PEEP 5. Tracheostomy was done yesterday by Dr. Ewing. G-tube feeding was started today at 10 cc an hour. Dietitian following. RAYA drain 12-hour shift overnight put out about 30 cc. Patient hemodialysis today about 1 L removed. Patient has a sacral stage II decub with a dressing. On propofol 20 mics. Spoke to at the bedside. TPN. Meropenem was discontinued yesterday. December 11: ICU. FiO2 35 PEEP of 5. Tracheostomy. NG tube was discontinued. No hemodialysis today. Telemetry shows sinus rhythm. J-tube feeding at 40 cc an hour. TPN was discontinued. Patient has been off propofol also. PICC line in place. Patient had a EEG done today. Spoke to patient's elder daughter at the bedside. May open eyes occasionally. Not really following commands December 12: 73-year-old white male with history of chronic abdominal pain for the last 8 months has been treated with Protonix 40 mg daily for the last 3 months with no improvement. Patient had a 22 pound weight loss in the last [address] of the abdomen and pelvis 3 weeks ago showed thickening of the antral wall with pathological adenopathy posterior to the stomach suspicious of neoplasm. Today the patient underwent elective upper endoscopy to evaluate further, patient received IV sedation by anesthesia endoscope was inserted into the mouth, esophagus was intubated without any difficulty there was evidence of large amount of liquid and solid food noted in the stomach suggestive of gastric outlet obstruction. Scope could not be advanced through the pylorus, however in the prepyloric area there was a large superficial ulceration identified with multiple biopsies were done from this area. The body cardia and fundus could not adequately visualize because of large amount of retained food in the s tomach. Scope was withdrawn back to the stomach and upon careful examination the mucosa of the antrum body and cardia as well as the fundus appeared normal. Procedure was being performed and biopsies were done patient threw up and subsequently became hypoxic there was clearly evidence of witnessed aspiration anesthesia intubated the patient, procedure was terminated, and the patient was transferred to the ICU, this consult was initiated. Patient is now on assist- control rate of 20 tidal volume 500 FiO2 70% PEEP of 10 ABG is pending, earlier ABG showed profound hypoxia patient is on propofol at 50 mcg/kg/min, next ABG is pending. Chest x-ray showed chronic changes without evidence of acute pulmonary disease. 12/14/2023 Patient remains in the ICU, generally weak Patient s/p tracheostomy G-tube in place Patient still has fever and mild tachycardia but tachycardia is improving, leukocytosis improving as well. Hemoglobin 8.1. Creatinine 3.0 and nephrology team on the case. He has mild transaminitis. He was getting Zosyn which is held now, nowCalcitonin is pending 12/14 Patient shon in the ICU, he is still encephalopathic and does not follow command. Neurology service following closely. He is status post tracheostomy. Also J-tube His abdomen looks soft and on exam he has mild coarse secretions. Has a Abarca catheter with clear urine His pro- Calcitonin is still high but trending down 3.0 down to 1.9 No fever this morning WBC slightly less at 16.3 Patient currently off antibiotic He is getting steroids IV Solu-Medrol which might contribute to his leukocytosis. Also he is on IV Keppra by neurologist 12/14 Patient remains confused in the ICU calm, he had a good night per family member and staff. Tracheostomy in place Patient has occasional coughing spells, patient also developed some partial wound dehiscence in his abdomen, surgery team are aware and are going to evaluate the patient Patient also has positive blood culture from 12/13: Gram-positive cocci in clusters. Patient received one-time dose of IV vancomycin. Patient also had fever 2 days ago, leukocytosis and total elevated pro- Calcitonin. Therefore we are going to consult infectious disease team. As his antibiotic Zosyn was stopped few days ago. Currently patient KVO He has good urine output December 16: ICU. Trach. Congested. Requiring suctioning. No hemodialysis today. Getting G-tube feeding at 50 cc an hour. FiO2 30 and a PEEP of 5. On IV Precedex. Eyes open. Does follow commands. Weakness in the limbs. Spoke to at the bedside. Sputum positive for Klebsiella oxytoca and Pseudomonas aeruginosa. December 17: ICU. On trach. Currently cough with increased secretions requiring suctioning. Adding scopolamine patch. Very much clear secretion. CT scan is showing right upper lobe lung abscess. G-tube feeding at 50 cc an hour. Hemodialysis today. RAYA drain putting out about 140 cc a shift. Serous. Has been midline incision wound dehiscence. Wound VAC was placed on it. Stage II ulcer. Patient is on Precedex drip 0.15 mics. Urine output is good about 6200 cc an hour. Spoke to the at the bedside. Patient currently not stable for transfer to LTAC. No limb movements. PT OT on the case. otherwise awake does follow simple commands by face December 18: ICU. Patient seen this afternoon. Because of pain getting IV Dilaudid. No nasal cannula on room air. Does move about his head. Telemetry shows sinus rhythm. FiO2 30 and a PEEP of 5. Patient started on scopolamine patch yesterday has decreased secretions today. Good urine output. Tube feeding at 60 cc an hour. Wound VAC on incisional would be high since in place. RAYA drain continues to make output. No hemodialysis today December 19: ICU. Patient was seen earlier today. FiO2 30 and a PEEP of 5. Sinus rhythm. Awake. Does follow with eyes. Tube feeding got obstructed tube feedings held for now. Increasing oozing from the incision drainage site. at the bedside. Wound VAC remains in place. Good urine output. Dialysis held today. December 20: ICU. Per nephrology no dialysis today. 1 L fluid bolus given. J- tube was replaced over the wire by Dr. Ewing from surgery. On Precedex 0.6 mcg. FiO2 30 and a PEEP of 5 on the vent. RAYA drain putting out of around 100 cc per shift. at the bedside. Drainage through the abdominal incision wound. CT scan abdomen showed tube placement in the small bowel. Stable large right lower quadrant mass with a fluid level. December 21: ICU. No dialysis today. Patient started on trickle feeding through the J-tube yesterday. He started leaking around the J-tube site. Tube feeding was held. Dressings were placed. Wound VAC remains on the incision. Still having output through the RAYA drain. Patient remains on Precedex 0.4 mcg. FiO2 30 and a PEEP of 5. Sinus rhythm. at the bedside. December 22: ICU. Patient was seen this morning today by me. No dialysis today. Patient's and daughter at the bedside. FiO2 30 and a PEEP of 5. Sinus rhythm. Still having significant secretions through the tracheostomy tube. On Precedex 0.4 mcg. Getting D5W IV fluids. Tube feeding remains to be on hold since yesterday. Still output of RAYA drain. Awaiting input from surgery. Discussed with the and daughter. December 23: ICU. Saw the patient this afternoon. Because of good output of urine dialysis has been discontinued. Telemetry shows sinus rhythm. FiO2 30 and a PEEP of 5. RAYA output has been around 8200 cc an hour. Good urine output. Patient does have very slight movement of the limbs. Wound VAC is putting out about 20 cc per shift. Yesterday when trickle feeding was started patient's J- tube drainage also started leaking around the insertion site. Tube feeding was held. Patient remains on IV Zosyn and Precedex at 0.3 mcg. I had a very lengthy discussion with patient's daughter and at the bedside overall guarded prognosis. Later surgery spoke to the family, and then the nurse called me that family was wanting transferred to [facility]. I spoke to Dr. Irby. They felt they could not offer anything more at this point. I did call the [facility] transfer team assembly line machine operator. Gave them the reason for transfer. Later in the ICU nurse informed me through [employer] that [facility] had declined the transfer. Total time spent today about 50 minutes with over 30 minutes of discussion. December 24: ICU. Patient is doing not too well. Sinus rhythm. Drips include norepinephrine and IV propofol. Surgery did put 2 stitches around the J-tube insertion site. Started on TPN today. FiO2 30 PEEP of 5. Patient became hypothermic put on a Manjit hugger. Also hypoglycemic. Decreased urine output. IV fluids increased. Patient's son was at the bedside. I did speak to patient's eldest daughter outside in the waiting room. Did tell the patient doing very poorly. I did try to call the on the phone number she has gone home. Started an IV antifungal today. December 26, 2023 73-year-old white male with history of chronic abdominal pain for the last 8 months has been treated with Protonix 40 mg daily for the last 3 months with no improvement. Patient had a 22 pound weight loss in the last [address] of the abdomen and pelvis 3 weeks ago showed thickening of the antral wall with pathological adenopathy posterior to the stomach suspicious of neoplasm. Today the patient underwent elective upper endoscopy to evaluate further, patient received IV sedation by anesthesia endoscope was inserted into the mouth, esophagus was intubated without any difficulty there was evidence of large amount of liquid and solid food noted in the stomach suggestive of gastric outlet obstruction. Scope could not be advanced through the pylorus, however in the prepyloric area there was a large superficial ulceration identified with multiple biopsies were done from this area. The body cardia and fundus could not adequately visualize because of large amount of retained food in the stomach. Scope was withdrawn back to the stomach and upon careful examination the mucosa of the antrum body and cardia as well as the fundus appeared normal. Procedure was being performed and biopsies were done patient threw up and subsequently became hypoxic there was clearly evidence of witnessed aspiration anesthesia intubated the patient, procedure was terminated, and the patient was transferred to the ICU, this consult was initiated. Patient is now on assist- control rate of 20 tidal volume 500 FiO2 70% PEEP of 10 ABG is pending, earlier ABG showed profound hypoxia patient is on propofol at 50 mcg/kg/min, next ABG is pending. Chest x-ray showed chronic changes without evidence of acute pulmonary disease. 12/27/2023 Patient is seen and evaluated with family at bedside; remains in the ICU intubated and mechanically ventilated. - ABG showed a pO2 of 99 pCO2 31 pH of 7.44. -- Remains on Eraxis daptomycin and Zosyn patient is intermittently requiring Dilaudid, Ativan does not seem to help his agitation and restlessness. -- Continues to have leakage around the jejunostomy tube, and patient is undergoing the J-tube exchange today. Family is at bedside, seems to be quite anxious about his overall condition, and I explained to the that we are doing the best we can considering his critical illness situation and critical illness polyneuropathy. Patient is profoundly weak, and weaning the patient from mechanical ventilation is almost impossible. At least not at this point yet WBC count is 10.9 hemoglobin is 8.1 basic metabolic profile is normal BUN is 46 creatinine 1.90 patient has been off hemodialysis since the . Chest x- ray continues to show stable findings with right upper lobe opacity and right lower lobe opacity and possibly a small right-sided pleural effusion ----Continue ventilatory support, now on IMV mode rate of 16 with pressure support of 14 Continue Precedex and use Dilaudid 0.5 mg every 2-3 hours as needed. Nutritional support patient is now on TPN, Possible J-tube changed today for J- tube malfunction Continue antibiotics including daptomycin and Zosyn, Eraxis was added by infectious disease 12/28/2023 the patient is seen and evaluated in room at bedside; continues to be afebrile, the patient is on the ventilator through the trach FiO2 is currently stable at 30% no significant pleural effusion clinically patient on requiring any pressor support still having drainage around his jejunostomy tube patient dialysis catheter has been discontinued. Patient white count normalized to 7.6, creatinine is 1.51 patient with pneumonia with a sputum showing Citrobacter and Pseudomonas aeruginosa, the patient sputum repeat is still growing Citrobacter and Pseudomonas sensitive to the Pseudomonas is pending continue with Zosyn -patient did have a positive blood culture with staph epi that was oxacillin resistant as the patient did have a PICC line and the dialysis catheter he is on daptomycin repeat blood culture currently growing oxacillin sensitive staph epi, the patient dialysis catheter has been discontinued Has been sent for the culture -patient also have significant excoriation around his jejunostomy tube site which is still leaking Eraxis was added which will be continued as the patient fever pattern has improved and the patient white count has normalized once again discussed with the nursing staff to apply Triad cream which was discussed yesterday but not applied and monitor clinical course closely 12/29/2023 Patient is seen and evaluated with family members at bedside; remains intubated and mechanically ventilated -- ABG showed a pO2 of 105 pCO2 31 pH of 7.45. Remains on Precedex; multiple antibiotics and antifungal including Eraxis daptomycin and Zosyn. -- chest x-ray is showing improvement in his right upper lobe airspace disease/pulmonary abscess. Right lower lobe seems about the same with chronic opacity and possibly some small right-sided pleural effusion. --Family is at bedside, patient is arousable but does not follow any instructions. Gets extremely restless and agitated easily hence patient is receiving Dilaudid which seems to be working much better for this patient than benzodiazepines --possibly transfer the patient to a select care specialty. 12/30/2023 Evaluated in follow-up in the intensive care unit. He remains on the mechanical ventilator. Status post tracheostomy. There has been a decrease in the amount of leakage around the J-tube site he continues on a gravity flow. TPN is infusing tube feedings remain on hold at this time. No bowel movement reported for the last 5 days. X-ray today reveals extensive pleural parenchymal opacities throughout the right with at least a moderate pleural effusion. Mild patchy densities left mid and lower lung are also similar. Blood work reveals a white blood cell count 11.5, hemoglobin 8.1, platelet count of 78, sodium 142, potassium 4.2, BUN of 42, creatinine of 1.22, Phos of 2.3, magnesium 1.9. Patient continues on IV anidulafungin IV Zerbaxa IV daptomycin. Patient is currently sedated with propofol and also Precedex which is currently on hold at this time. December 31, 2023: ICU. Patient continues to do poorly. On propofol 35 mics. Also getting IV Dilaudid and IV Ativan.. Telemetry shows sinus rhythm. J-tube feeding has been discontinued. Significant output through the Abarca bag and around the G-tube site. Patient also putting out through the RAYA drain on the right side. Getting TPN and lipids. Patient is antimicrobial include iv aniedulefungin, IV ceftolozane/tazobactam, IV daptomycin Advance care planning [October 31, 2023] I met with patient's at the bedside. Went through in detail with patient is overall very poor clinical status. Chances of any meaningful recovery next to minimal. I also did mention that patient in my opinion was not stable to go to chronic ventilator setting. I suggested comfort care/hospice. I did not feel and why all honesty that patient is benefiting any further from the treatment we are giving him in fact causing probably more suffering. I also spoke to patient's daughter outside in the waiting room. Total time spent about 50 minutes with over 30 minutes of discussion. Later I called Dr. Luther JIMENEZ the flat cutter after he received a text that family was expressing that some physician expressed he was doing better and giving hope. I spoke to nurse Lemos in the evening and she and Dr. JIMENEZ did go and talk to patient's family at the bedside later. January 01, 2024: ICU. FiO2 30 and a PEEP of 5. Continues to have increased drainage at the G-tube site. Wound VAC in place over the incision. RAYA drain continues to put out excretions. Good urine output. Drips include IV propofol at 20 mics, also getting IV Ativan and Dilaudid. Patient also keeping getting TPN lipids. Spoke to the patient's at the bedside. No further questions. I did speak to Dr. Irby from general surgery. Hence it is both our impression again that changing the tube will not make any difference to the bigger picture. And probably futile. Dr. Irby will be speaking to the family today. David from secondary social studies teacher did ask about of family meeting. I did reiterate that I spoken at length to the a few times and also the daughter. Dr. Jimenez also spoke to the and Dr. Irby will be speaking with the today. Prognosis remains to be very poor. I did tell the in my opinion probably the patient is not r a candidate for long-term facility. Will flat cutter Dr. Jimenez determine if the patient is a candidate for long-term chronic ventilator facility. January 02, 2024: ICU. FiO2 30 PEEP of 5. Telemetry sinus rhythm. Drips include propofol at 20 mics. Patient getting TPN lipids. Receiving 1 unit of packed red blood cell. Patient was having a breakdown around the tracheostomy stoma site. With a cuff leak. G-tube site is continues to have increasing output. Wound VAC in place. RAYA drains also having increasing output. Patient sister and daughter from [place] from out of town. Earlier they spoke at length with Dr. alford from general surgery. Prognosis remains poor. January 03, 2024: ICU. FiO2 30 PEEP of 5. On propofol. 50 mics. Getting TPN lipids. Sinus rhythm. Wound VAC in place. Drainage around the G-tube site. RAYA drain continues to drain. Patient somewhat sedated. at the bedside. Later secondary social studies teacher David inform me that the surgical team Dr. Irby has suggested possible you have [facility], to which family is trying to obtain transferred to. Per Dr. Jimenez note patient has been decline by long-term care twice. Prognosis remains poor. at the bedside. Had no questions. Brother Nathan is present. Active Medications Albuterol/Ipratropium (Ipratropium-Albuterol 3 Ml Neb) 3 ml INHALATION RT-QID [facility] Last Admin: 01/03/24 12:36 Dose: 3 ml Albuterol/Ipratropium (Ipratropium-Albuterol 3 Ml Neb) 3 ml INHALATION RT-Q2H PRN PRN Reason: Shortness Of Breath Or Wheezing Last Admin: 12/03/23 03:45 Dose: 3 ml Chlorhexidine Gluconate (Chlorhexidine Gluconate 15 Ml Cup) 15 ml MUCOUS MEM BID [facility] Last Admin: 01/03/24 08:23 Dose: 15 ml Darbepoetin Scooby (Darbepoetin Scooby 40 Mcg/0.4 Ml Syringe) 40 mcg SQ Q7D [facility] Last Admin: 12/31/23 14:23 Dose: 40 mcg Dextrose/Water (Dextrose 50% Syringe 50 Ml) 25 ml IVP PER PROTOCOL PRN; Protocol PRN Reason: Hypoglycemia Last Admin: 01/03/24 06:18 Dose: 25 ml Dextrose/Water (Dextrose 50% Syringe 50 Ml) 50 ml IVP PER PROTOCOL PRN; Protocol PRN Reason: Hypoglycemia Last Admin: 12/25/23 18:03 Dose: 50 ml Hydromorphone HCl (Hydromorphone 2 Mg/Ml 1 Ml Syringe) 1 mg IVP Q2H [facility] Last Admin: 01/03/24 14:46 Dose: 1 mg Propofol 1,000 mg/ IV Solution 100 mls @ 9.144 mls/hr IV .[id number] [facility]; Protocol Last Titration: 01/03/24 15:02 Dose: 12 mcg/kg/min, 7.315 mls/hr Ceftolozane/Tazobactam 3 gm/ (Sodium Chloride) 100 mls @ 100 mls/hr IV Q8H [facility]; Protocol Last Admin: 01/03/24 11:36 Dose: 100 mls/hr Parenteral Vitamin Supplement 10 ml/ Zinc/Copper/Manganese/Selenium 1 ml/ Potassium Acetate 36 meq/ Amino Ac/Electrol/Dextrose/Calcium 2,029 mls @ 90 mls/hr IV .[id number] [facility] Stop: 01/03/24 23:00 Last Admin: 01/03/24 06:06 Dose: 90 mls/hr Parenteral Vitamin Supplement 10 ml/ Zinc/Copper/Manganese/Selenium 1 ml/ Sodium Acetate 30 meq/ Magnesium Sulfate 1 gm / Calcium Gluconate 1 gm/Amino Acids/Dextrose 2,038 mls @ 90 mls/hr IV .[id number] [facility] Fat Emulsion Intravenous 250 (ml/ IV Solution) 250 mls @ 21 mls/hr IV TuThSa [facility] Insulin Aspart (Insulin Aspart (Novolog) 100 Unit/Ml Vial) 0 unit SQ 0000,0600,1200,1800 [facility]; Protocol Last Admin: 01/03/24 12:43 Dose: Not Given Levetiracetam (Levetiracetam Iv 500 Mg/5 Ml Vial) 250 mg IVP Q24HR [facility] Last Admin: 01/03/24 08:14 Dose: 250 mg Lorazepam (Lorazepam 2 Mg/Ml Inj) 1 mg IV Q6HR [facility] Last Admin: 01/03/24 12:50 Dose: 1 mg Miscellaneous Information (Magnesium Replacement Protocol 1 Each Misc) 1 each MISCELLANE DAILY PRN; Protocol PRN Reason: Per Protocol Miscellaneous Information (Potassium Replacement Protocol 1 Each Misc) 1 each MISCELLANE DAILY PRN; Protocol PRN Reason: Per Protocol Multi-Ingred Cream/Lotion/Oil/Oint (Hydrophilic Cream 180 Gm Tube) 1 applic TOPICAL BID [facility]; Protocol Last Admin: 01/03/24 09:56 Dose: 1 applic Multi-Ingredient Ointment (Zinc Oxide 20% Oint 28.4 Gm Tube) 1 applic TOPICAL BID PRN; Protocol PRN Reason: Skin Irritation Naloxone HCl (Naloxone 0.4 Mg/Ml 1 Ml Vial) 0.2 mg IV Q2M PRN PRN Reason: Opioid Reversal Pantoprazole Sodium (Pantoprazole 40 Mg/10 Ml Vial) 40 mg IVP BID [facility] Last Admin: 01/03/24 08:15 Dose: 40 mg Petrolatum (Zinc Oxide Paste (Z-Guard) 1 Applic) 1 applic TOPICAL BID [facility]; Protocol Last Admin: 01/03/24 09:56 Dose: 1 applic Past medical history to include: GERD Social history: . No smoking. Physical examination: VITAL SIGNS: 98, 32, 145/71, 98% on the ventilator GENERAL: Sedated. Left groin dialysis catheter. Right chest wall port. Getting TPN and lipids EYES: Pupils equal. Conjunctiva edouard l. HEENT: External appearance of nose and ears normal, tracheostomy-. NECK: JVD unable to assess; masses not palpable. HEART: First and second heart sounds are normal; edema, present LUNGS: Respiratory rate increased, decreased breath sounds ABDOMEN: Soft, some tenderness. Liver spleen not palpable, no masses palpable..jejunostomy tube-dressing in place, soaked. RAYA drain. Incision with stitches with - wound VAC PSYCH: Unable to assess NEURO: Patient sedated INVESTIGATIONS, reviewed in the clinical context: January 02: White 11.5 hemoglobin 8 platelets 78 potassium 5.3 creatinine 1.05 January 01: White count 10 hemoglobin 6.5 platelets 83 potassium 4.6 creatinine 1.08 December 31: White count 12.1 hemoglobin 7 platelets 69 sodium 141 potassium 4.3 creatinine 1.11 iron 13 TIBC 105% saturation 12.3 ferritin 642 Sputum culture [December 24] Citrobacter freundii, Pseudomonas aeruginosa Blood culture [December 24] Staphylococcus pettenkoferi December 30: White count 12.8 hemoglobin 7.3 platelets 67 sodium 140 potassium 3.6 creatinine 1.15 December 24: White count 1.5 hemoglobin 8.2 platelets 106 potassium 3.8 BUN [address] chest abdomen without contrast [December 16] right upper lung cavitary lesion with air-fluid level in the posterior aspect and a larger cavitary lesion possibly within the lung parenchyma itself. Extending down towards the diaphragm additional airspace opacities in the left lung base. December 09: White count 26.1 hemoglobin 8.6 platelets 154 potassium 4.1 BUN 86 creatinine 3.31. Hemoglobin this morning was 6.6 prior to transfusion EEG-evidence of generalized cerebral dysfunction and sporadic intermittent higher amplitude sharply contoured waves mainly bifrontal. Showing cortical irritability. Keppra was started on December 07 December 05: White count 1.8 hemoglobin 7.9 platelets 107 sodium 130 potassium 3.9 BUN 92 creatinine 3.74 Small bowel resection [December 01]: Ischemic active enteritis with focal necro sis and perforation. Serosal fibrous adhesions. Viable margins. Sputum culture: [November 25]: Citrobacter freundii. Pseudomonas aeruginosa November 20: White count 14.4 hemoglobin 8.8 platelets 229 potassium 4.1 BUN [address] scan abdomen [November 19] possible small bowel obstruction Stool: C. difficile negative November 15: WBC 13 hemoglobin 7.7 platelets 248 potassium 4.3 creatinine 0.87 2D echo: EF 55 to 60%. Kidneys bladder: Unremarkable November 13: White count 12 hemoglobin 6.9 platelets 276 potassium 4.4 creatinine 1.21 magnesium 1.8 iron 6 TIBC 365% saturation 1.64 transferrin 261 ferritin 34.6 B12 569 folate 4.4 November 11: Creatinine 0.86 EGD: Large amount of retained solid liquid food noted in the stomach. Large superficial gastric antral ulceration involving most of the antrum extending into the pylorus causing pyloric stenosis. Biopsies were obtained. Chest x-ray film personally reviewed by me-scattered infiltrates Assessment plan: -Aspiration pneumonia a bilateral initially from retained gastric contents mostly food and liquids, causing acute hypoxic respiratory failure: On presentation: Subsequent bacterial pneumonia sputum culture November 25: Citrobacter freundii, Pseudomonas aeruginosa. December 13: Klebsiella oxytoca, Pseudomonas aeruginosa IV meropenem-was received originally. Also received IV Zosyn. Currently receiving:iv aniedulefungin, IV ceftolozane/tazobactam, IV daptomycin -Breakdown of tracheostomy stoma site. Being followed by flat cutter -Sepsis with septicemia from above Antibiotics -Probable lung abscess larger 1 on the right side-patient cultures are growing Pseudomonas and Klebsiella oxytoca , daptomycin, other antibiotics -Acute pulmonary edema and fluid overload from hypoalbuminemic state and fluids from IV.:: Has been getting Lasix and dialysis: Both held -Altered mentation. Possibly encephalopathy. Could be delirium.: Not improving CT brain [December 06] nothing acute Neurology following EEG-evidence of generalized cerebral dysfunction and sporadic intermittent higher amplitude sharply contoured waves mainly bifrontal. Showing cortical irritability. Keppra was started on December 07 -Critical care poly- Pedro neuropathy: Slow to respond PT OT -Gallstones, asymptomatic -Small l bowel perforation at site of jejunostomy tube tip with balloon..: Portion of small bowel resected. On November 24. New J-tube was placed.- drainage to gravity:-Now discontinued December 19: J-tube blocked. J-tube replaced on December 20 over wire December 21: Leaking around the J-tube site. Feeding held December 23: J feeding was started yesterday evening but again started leaking increasingly around the J-tube site-feeding held again December 24: J-tube feeding has been held. Patient is currently having increased drainage from the J-tube site and also Abarca bag over the ostomy -Acute kidney injury. Possible ATN from hypotensive shock: Slow to respond Renal ultrasound unremarkable. Started on renal replacement therapy on November 28. Followed by nephrology-dialysis has been held -Nutrition Jejunostomy tube placed November [address] Ewing Received TPN-this was discontinued. TPN lipids restarted on December 24 -Midline abdominal incision wound dehiscence Wound VAC placed -Acute recurrent atrial fibrillation-converted to sinus rhythm Received IV amiodarone. Cardiology following Lopressor -Acute hypoxic respiratory failure from aspiration pneumonia, status post ventilator assisted: Reintubated November 25. FiO2 35 PEEP of 5 Tracheostomy tube-by Dr. Zepeda on December 09 -Septic shock, recovered -Hypertension Patient started on Cleviprex-discontinued -Intermittent hypotension Intermittent use of Levophed. 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 Also anemia of blood draw. Iron deficiency anemia Received 3rd unit of blood . IV iron. -Severe thrombocytopenia. Would consider coagulation disorder secondary to inf ection., In the setting of underlying lymphoma.: Recovered Hematology following. 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 difficile ruled out. -Large superficial gastric antral ulceration involving the gastric antrum extending into the pylorus with gastric outlet obstruction. 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 Port placed. For outpatient PET scan. -Full code Continue current treatment plan. Prognosis remains guarded/poor. Being followed by multiple consultants. Past Medical History Past Medical History: GERD/Reflux History of Any Multi-Drug Resistant Organisms: None Reported Past Surgical History: Heart Catheterization Additional Past Surgical History / Comment(s): colonsocopy,spinal injection, Past Anesthesia/Blood Transfusion Reactions: No Reported Reaction Past Psychological History: No Psychological Hx Reported Smoking Status: Never smoker Past Alcohol Use History: None Reported Past Drug Use History: None Reported
[2024-01-03 17:52] LABS: Glucose,Whole Blood 152 mg/dL (70-110)
[2024-01-04 00:17] LABS: Glucose,Whole Blood 169 mg/dL (70-110)
[2024-01-04 05:06] LABS: Glucose,Whole Blood 121 mg/dL (70-110)
[2024-01-04] MEDS: MVI, ADULT NO.4 WITH VIT K 10 ML, TRACE (CONC-1ML/DOSE) 1 ML, SODIUM ACETATE 30 MEQ, MA... IV SCH (05:15)
[2024-01-04 05:48] LABS: Allen Test Performed? Yes
[2024-01-04 05:49] LABS: ABG HCO3 24 mmol/L (21-25); ABG Oxygen Saturation 96.9 % (94-97); ABG PCO2 35 mmHg (35-45); ABG PH 7.44 (7.35-7.45); ABG PO2 81 mmHg (83-108); ABG TCO2 25 mmol/L (19-24)
[2024-01-04 06:24] LABS: Anisocytosis Slight; Basophils # (A) 0.1 k/uL (0-0.2); Basophils % (A) 1 %; Eosinophils # (A) 0.1 k/uL (0-0.7); Eosinophils % (A) 1 %; HGB 8.1 gm/dL (13.0-17.5); Hypochromasia Slight; Lymphocytes # (A) 3.7 k/uL (1.0-4.8); Lymphocytes % (A) 27 %; MCH 29.9 pg (25.0-35.0); MCHC 32.5 g/dL (31.0-37.0); MCV 92.2 fL (80.0-100.0); Mean Platelet Volume 9.2; Monocytes # (A) 0.6 k/uL (0-1.0); Monocytes % (A) 5 %; Neutrophils # (A) 8.7 k/uL (1.3-7.7); Neutrophils % (A) 65 %; RBC 2.71 m/uL (4.30-5.90); WBC 13.4 k/uL (3.8-10.6)
[2024-01-04 07:06] LABS: Platelet Count 95 k/uL (150-450)
--- NOTE | 2024-01-04 07:07 | XR ---
EXAMINATION TYPE: XR chest 1V portable DATE OF EXAM: 01/04/2024 5:27 AM COMPARISON: Chest radiographs from 01/03/2024 CLINICAL INDICATION: Male, 73 years old with history of vented; [facility] TECHNIQUE: XR chest 1V portable Frontal view of the chest. FINDINGS: Lungs/Pleura: Blunting of the right costophrenic angle. Scattered airspace opacities. There is no gavino dence of pleural effusion, focal consolidation, or pneumothorax. Pulmonary vascularity: Unremarkable. Heart/mediastinum: Cardiomediastinal silhouette is unremarkable. Musculoskeletal: No acute osseous pathology. Other findings: None Lines/Tubes: Tracheostomy cannula tip projecting over the trachea. Right internal jugular central venous catheter with distal tip at the cavoatrial junction. Left-sided PICC with distal tip at the superior vena cava/brachiocephalic confluence. IMPRESSION: Stable exam given differences in technique with multifocal airspace opacities with small moderate ple ural effusion. [facility], , 01/04/2024 7:05 AM
[2024-01-04 08:00] LABS: Albumin 1.8 g/dL (3.5-5.0); Calcium 7.4 mg/dL (8.4-10.2); Magnesium 1.7 mg/dL (1.6-2.3); Potassium 5.2 mmol/L (3.5-5.1); Total Bilirubin 1.4 mg/dL (0.2-1.3); Total Protein 5.6 g/dL (6.3-8.2)
[2024-01-04] MEDS: FAT EMULSION 20% 250 ML in EMPTY BAG 1 BAG IV SCH (09:16)
--- NOTE | 2024-01-04 10:38 | P.PN ---
Subjective Progress Note Date: 01/02/24 01/02/2024: Patient was seen for a follow-up. Patient on propofol 10 mcg/kg/min. He is clinically unchanged. 01/01/2024: Patient was seen for a follow-up. Patient continues to be significantly encephalopathic. Patient is on propofol 20 mcg/kg/min. Patient has developed air leak from tracheostomy. 12/30/2023: Patient was seen for follow-up. Patient's daughter was present. Patient currently on propofol 35 mcg/kg/min. Patient continues to have sepsis, pneumonia being treated. Patient currently on Eraxis, Zerbaxa, daptomycin. Per patient's daughter, patient's motor improvement has regressed since back on propofol. Previously was doing better on Precedex. 12/22/2023: Patient was seen for a follow-up. Patient's was also present today. She states that she is doing better, but right now he has received Dila udid, therefore somnolent. 12/20/2023: Patient was seen for follow-up. Patient's daughter and patient's are both present. Patient apparently has started responding remarkably. Patient is moving his lower extremities proximally and distally quite well, improved within the last 24 hours. Also able to move his arms well. 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 12/19/2023: Patient was seen for a follow-up. Patient's and patient's daughter were present today. Patient is clinically unchanged. Continues to be very weak in the arms and legs. 12/18/2023: Patient was seen for a follow-up. Patient is much more alert and awake. He is off sedation. Please refer to examination below. 12/17/2023: Patient was seen for a follow-up. Patient's was also present, who believes that patient is doing better. Patient is nodding appropriately. He is still very weak in the arms and legs, not able to follow directions otherwise. Patient nods "no" for headache. Patient has tracheostomy. 12/16/2023: Patient was seen for a follow-up. Patient is laying in the bed, severely encephalopathic. Patient now has tracheostomy. Patient currently on Precedex 0.2 mcg/kg/h. Also on vancomycin. Patient getting hemodialysis as of now. 12/08/2023: Patient was seen for a follow-up. Patient's was also present. Per nursing report, with sedation holiday, patient opens eyes, but does not follow commands, does not track. Does not even response to yes/no questions. Patient does move right arm sometimes. Patient starts desynchronized ventilation therefore has to be put back on Precedex. Patient currently on Precedex 0.6 g per program per hour. Objective - Vital Signs Vital signs: Vital Signs Temp 99.3 F 01/04/24 08:00 Pulse 99 01/04/24 10:00 Resp 32 H 01/04/24 10:00 BP 130/85 01/03/24 02:00 Pulse Ox 96 01/04/24 10:00 FiO2 30 01/04/24 10:00 Intake & Output 01/03/24 01/04/24 01/04/24 18:59 06:59 18:59 Intake Total 7675.654 5941.199 570.318 Output Total 66489 2045 582 Balance -39749.197 -771.801 -11.682 Weight 104.2 kg 100.5 kg Intake: IV 1123 1233 412 0.9 Normal Saline @ KVO 133 110 40 Ceftolozane/Tazobactam 3 100 gm In Sodium Chloride 0.9 % 100 ml @ 100 mls/hr IV Q8H [facility] Rx#:[id number] Mvi, Adult No.4 with Vit 990 360 K 10 ml Trace (Conc-1Ml/ Dose) 1 ml Potassium Acetate 36 meq In Amino Acid 5%-D15w+Lytes*E* 2, 000 ml @ 90 mls/hr IV . [id number] [facility] Rx#:[id number] Normal Saline Pressure 33 12 Saline TPN 990 Intake, IV Titration 328.803 40.199 58.318 Amount Mvi, Adult No.4 with Vit 180 K 10 ml Trace (Conc-1Ml/ Dose) 1 ml Potassium Acetate 36 meq In Amino Acid 5%-D15w+Lytes*E* 2, 000 ml @ 90 mls/hr IV . [id number] [facility] Rx#:[id number] propofoL 1,000 mg In 148.803 40.199 58.318 Empty Bag 1 bag @ 15 MCG/ KG/MIN 9.144 mls/hr IV . [id number] [facility] Rx#:[id number] TPN/PPN 100 Ceftolozane/Tazobactam 3 100 gm In Sodium Chloride 0.9 % 100 ml @ 100 mls/hr IV Q8H [facility] Rx#:[id number] Output: Drainage 24832 45 Medial Abdomen 69220 Right Abdomen 100 45 Urine 4385 2045 537 Other: Voiding Method Indwelling Catheter Indwelling Catheter ABP, PAP, CO, CI - Last Documented Arterial Blood Pressure 152/67 - Exam On examination patient is laying in the bed. Patient is intubated, with tracheostomy. Patient on propofol 10 mcg/kg/min. No seizure-like activity. Patient is somnolent at this time. Detailed examination deferred. Pupils are equal, round and reacting. Patient continues to be severely weak in the arms and legs. - Labs CBC & Chem 7: 01/04/24 05:00 01/04/24 05:00 Labs: Abnormal Lab Results - Last 24 Hours (Table) 01/03/24 01/03/24 01/04/24 Range/Units 12:37 17:50 00:15 WBC (3.8-10.6) k/uL RBC (4.30-5.90) m/uL Hgb (13.0-17.5) gm/dL Hct (39.0-53.0) % RDW (11.5-15.5) % Plt Count (150-450) k/uL Neutrophils # (1.3-7.7) k/uL ABG pO2 (83-108) mmHg ABG Total CO2 (19-24) mmol/L Hemoglobin (13.0-17.5) gm/dL Potassium (3.5-5.1) mmol/L Chloride (98-107) mmol/L BUN (9-20) mg/dL Glucose (74-99) mg/dL POC Glucose (mg/dL) 150 H 152 H 169 H (70-110) mg/dL Calcium (8.4-10.2) mg/dL Total Bilirubin (0.2-1.3) mg/dL Alkaline Phosphatase (38-126) U/L Total Protein (6.3-8.2) g/dL Albumin (3.5-5.0) g/dL 01/04/24 01/04/24 01/04/24 Range/Units 05:00 05:00 05:04 WBC 13.4 H (3.8-10.6) k/uL RBC 2.71 L (4.30-5.90) m/uL Hgb 8.1 L (13.0-17.5) gm/dL Hct 25.0 L (39.0-53.0) % RDW 18.0 H (11.5-15.5) % Plt Count 95 L (150-450) k/uL Neutrophils # 8.7 H (1.3-7.7) k/uL ABG pO2 (83-108) mmHg ABG Total CO2 (19-24) mmol/L Hemoglobin (13.0-17.5) gm/dL Potassium 5.2 H (3.5-5.1) mmol/L Chloride 114 H (98-107) mmol/L BUN 47 H (9-20) mg/dL Glucose 110 H (74-99) mg/dL POC Glucose (mg/dL) 121 H (70-110) mg/dL Calcium 7.4 L (8.4-10.2) mg/dL Total Bilirubin 1.4 H (0.2-1.3) mg/dL Alkaline Phosphatase 180 H (38-126) U/L Total Protein 5.6 L (6.3-8.2) g/dL Albumin 1.8 L (3.5-5.0) g/dL 01/04/24 Range/Units 05:44 WBC (3.8-10.6) k/uL RBC (4.30-5.90) m/uL Hgb (13.0-17.5) gm/dL Hct (39.0-53.0) % RDW (11.5-15.5) % Plt Count (150-450) k/uL Neutrophils # (1.3-7.7) k/uL ABG pO2 81 L (83-108) mmHg ABG Total CO2 25 H (19-24) mmol/L Hemoglobin 7.9 L (13.0-17.5) gm/dL Potassium (3.5-5.1) mmol/L Chloride (98-107) mmol/L BUN (9-20) mg/dL Glucose (74-99) mg/dL POC Glucose (mg/dL) (70-110) mg/dL Calcium (8.4-10.2) mg/dL Total Bilirubin (0.2-1.3) mg/dL Alkaline Phosphatase (38-126) U/L Total Protein (6.3-8.2) g/dL Albumin (3.5-5.0) g/dL Assessment and Plan Assessment: * Altered mental status, likely due to toxic metabolic encephalopathy. Patient had transiently improved, but now continues to be severely encephalopathic. 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 * Sepsis * Pneumonia, persistent, chest x-ray showing ongoing moderate right pleural effusion with adjacent atelectasis and/or consolidation. 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 Plan: * Patient continues to have significant metabolic encephalopathy from ongoing sepsis, pneumonia, head previous bacteremia. ID on board. On multiple antibiotics. * Patient not able to be weaned off the ventilator. * Initial EEG on 12/08/2023: It revealed generalized slowing of severe degree. This is suggestive of generalized cerebral dysfunction as can be seen with toxic metabolic encephalopathy or related to diffuse structural brain about a day. Clinical correlation is recommended. Sporadic, periodic generalized sharp-appearing waves were seen. This may suggest underlying cortical irritability. No electrographic seizure was recorded. * Repeat EEG 12/12/2023 revealed limited study because of diffuse myogenic artifact. Background slowing is suggestive of severe encephalopathy. No epileptiform activity was seen. * Patient's Keppra was decreased to 250 mg twice daily on 12/25/2023 (from 500 mg twice daily). Would recommend tapering off Keppra, once mentation and sepsis improves. * CT head performed 12/07/2023 revealed no acute intracranial process. Some atrophy. I personally reviewed CT head agree with the findings. * Patient is generalized weak. Patient has been ICU for extended period of time. Patient has developed critical illness myopathy. * For medical management as per critical care, ID and other specialties on board. * Patient being considered for possible palliative care, and changing CODE STATUS, as per report from critical care/IM.
--- NOTE | 2024-01-04 10:40 | P.PN ---
Subjective Progress Note Date: 01/03/24 01/03/2024: Patient was seen for a follow-up. Patient's was present. She is mentioning that patient has developed bigger cuff leak from the tracheostomy. Patient is currently on propofol 10 mcg/kg/min. 01/02/2024: Patient was seen for a follow-up. Patient on propofol 10 m cg/kg/min. He is clinically unchanged. 01/01/2024: Patient was seen for a follow-up. Patient continues to be significantly encephalopathic. Patient is on propofol 20 mcg/kg/min. Patient has developed air leak from tracheostomy. 12/30/2023: Patient was seen for follow-up. Patient's daughter was present. Patient currently on propofol 35 mcg/kg/min. Patient continues to have sepsis, pneumonia being treated. Patient currently on Eraxis, Zerbaxa, daptomycin. Per patient's daughter, patient's motor improvement has regressed since back on p ropofol. Previously was doing better on Precedex. 12/22/2023: Patient was seen for a follow-up. Patient's was also present today. She states that she is doing better, but right now he has received Dilaudid, therefore somnolent. 12/20/2023: Patient was seen for follow-up. Patient's daughter and patient's are both present. Patient apparently has started responding remarkably. Patient is moving his lower extremities proximally and distally quite well, improved within the last 24 hours. Also able to move his arms well. Still no pressurizer, but approximately moving better. 12/19/2023: Patient was seen for a follow-up. Patient's and patient's daughter were present today. Patient is clinically unchanged. Continues to be very weak in the arms and legs. 12/18/2023: Patient was seen for a follow-up. Patient is much more alert and awake. He is off sedation. Please refer to examination below. 12/17/2023: Patient was seen for a follow-up. Patient's was also present, who believes that patient is doing better. Patient is nodding appropriately. He is still very weak in the arms and legs, not able to follow directions otherwise. Patient nods "no" for headache. Patient has tracheostomy. 12/16/2023: Patient was seen for a follow-up. Patient is laying in the bed, severely encephalopathic. Patient now has tracheostomy. Patient currently on Precedex 0.2 mcg/kg/h. Also on vancomycin. Patient getting hemodialysis as of now. 12/08/2023: Patient was seen for a follow-up. Patient's was also present. Per nursing report, with sedation holiday, patient opens eyes, but does not follow commands, does not track. Does not even response to yes/no questions. Patient does move right arm sometimes. Patient starts desynchronized ventilation therefore has to be put back on Precedex. Patient currently on Precedex 0.6 g per program per hour. Objective - Vital Signs Vital signs: Vital Signs Temp 99.0 F 01/03/24 16:00 Pulse 93 01/03/24 17:00 Resp 32 H 01/03/24 17:00 BP 130/85 01/03/24 02:00 Pulse Ox 95 01/03/24 17:00 FiO2 30 01/03/24 15:53 Intake & Output 01/02/24 01/03/24 01/03/24 18:59 06:59 18:59 Intake Total 4160 8060.402 2070.803 Output Total 830 1715 42193 Balance 3330 -482.000 -57637.197 Weight 104.2 kg 104.2 kg Intake: IV 1719 1133 1103 0.9 159 143 113 Anidulafungin 100 mg In 100 Sodium Chloride 0.9% 100 ml @ 84 mls/hr IVPB DAILY [facility] Rx#:[id number] Ceftolozane/Tazobactam 3 100 gm In Sodium Chloride 0.9 % 100 ml @ 100 mls/hr IV Q8H [facility] Rx#:[id number] DAPTOmycin 600 mg In 100 Sodium Chloride 0.9% 50 ml @ 100 mls/hr IVPB Q24H [facility] Rx#:[id number] Invasive Line 2 90 TPN 1170 990 990 Intake, IV Titration 2131 100.000 148.803 Amount Mvi, Adult No.4 with Vit 2031 K 10 ml Trace (Conc-1Ml/ Dose) 1 ml Potassium Acetate 40 meq In Amino Acid 5%-D15w+Lytes*E* 2, 000 ml @ 90 mls/hr IV . [id number] [facility] Rx#:[id number] propofoL 1,000 mg In 100 100.000 148.803 Empty Bag 1 bag @ 15 MCG/ KG/MIN 9.144 mls/hr IV . [id number] [facility] Rx#:[id number] Blood Product 310 Rc As-1 Unit 310 [id number] Output: Drainage 130 40 35891 Right Abdomen 130 40 80 wound vac 50394 Urine 700 6154 3785 Other: Voiding Method Indwelling Catheter Indwelling Catheter Indwelling Catheter ABP, PAP, CO, CI - Last Documented Arterial Blood Pressure 121/64 - Exam On examination patient is laying in the bed. Patient is intubated, with tracheostomy. Patient on propofol 10 mcg/kg/min. No seizure-like activity. Patient is somnolent at this time. Detailed examination deferred. Pupils are equal, round and reacting. Patient continues to be severely weak in the arms and legs. - Labs CBC & Chem 7: 01/04/24 05:00 01/04/24 05:00 Labs: Abnormal Lab Results - Last 24 Hours (Table) 01/03/24 01/03/24 01/03/24 Range/Units 00:04 04:25 04:25 WBC 11.5 H (3.8-10.6) k/uL RBC 2.65 L (4.30-5.90) m/uL Hgb 8.0 L (13.0-17.5) gm/dL Hct 24.4 L (39.0-53.0) % RDW 18.0 H (11.5-15.5) % Plt Count 78 L (150-450) k/uL ABG pCO2 (35-45) mmHg ABG O2 Saturation (94-97) % Hemoglobin (13.0-17.5) gm/dL Potassium 5.3 H (3.5-5.1) mmol/L Chloride 119 H (98-107) mmol/L Carbon Dioxide 20 L (22-30) mmol/L BUN 44 H (9-20) mg/dL Glucose 146 H (74-99) mg/dL POC Glucose (mg/dL) 155 H (70-110) mg/dL Calcium 7.1 L (8.4-10.2) mg/dL 01/03/24 01/03/24 01/03/24 Range/Units 05:12 06:16 06:32 WBC (3.8-10.6) k/uL RBC (4.30-5.90) m/uL Hgb (13.0-17.5) gm/dL Hct (39.0-53.0) % RDW (11.5-15.5) % Plt Count (150-450) k/uL ABG pCO2 34 L (35-45) mmHg ABG O2 Saturation 98.1 H (94-97) % Hemoglobin 7.8 L (13.0-17.5) gm/dL Potassium (3.5-5.1) mmol/L Chloride (98-107) mmol/L Carbon Dioxide (22-30) mmol/L BUN (9-20) mg/dL Glucose (74-99) mg/dL POC Glucose (mg/dL) 54 L 192 H (70-110) mg/dL Calcium (8.4-10.2) mg/dL 01/03/24 Range/Units 12:37 WBC (3.8-10.6) k/uL RBC (4.30-5.90) m/uL Hgb (13.0-17.5) gm/dL Hct (39.0-53.0) % RDW (11.5-15.5) % Plt Count (150-450) k/uL ABG pCO2 (35-45) mmHg ABG O2 Saturation (94-97) % Hemoglobin (13.0-17.5) gm/dL Potassium (3.5-5.1) mmol/L Chloride (98-107) mmol/L Carbon Dioxide (22-30) mmol/L BUN (9-20) mg/dL Glucose (74-99) mg/dL POC Glucose (mg/dL) 150 H (70-110) mg/dL Calcium (8.4-10.2) mg/dL Assessment and Plan Assessment: * Altered mental status, likely due to toxic metabolic encephalopathy. Patient had transiently improved, but now continues to be severely encephalopathic. 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 * Sepsis * Pneumonia, persistent, chest x-ray showing ongoing moderate right pleural effusion with adjacent atelectasis and/or consolidation. 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 Plan: * Patient continues to have significant metabolic encephalopathy from ongoing sepsis, pneumonia, head previous bacteremia. ID on board. On multiple antibiotics. * Patient not able to be weaned off the ventilator. * Initial EEG on 12/08/2023: It revealed generalized slowing of severe degree. This is suggestive of generalized cerebral dysfunction as can be seen with to xic metabolic encephalopathy or related to diffuse structural brain about a day. Clinical correlation is recommended. Sporadic, periodic generalized sharp-appearing waves were seen. This may suggest underlying cortical irritability. No electrographic seizure was recorded. * Repeat EEG 12/12/2023 revealed limited study because of diffuse myogenic artifact. Background slowing is suggestive of severe encephalopathy. No epileptiform activity was seen. * Patient's Keppra was decreased to 250 mg twice daily on 12/25/2023 (from 500 mg twice daily). Would recommend tapering off Keppra, once mentation and sepsis improves. * CT head performed 12/07/2023 revealed no acute intracranial process. Some atrophy. I personally reviewed CT head agree with the findings. * Patient is generalized weak. Patient has been ICU for extended period of time. Patient has developed critical illness myopathy. * For medical management as per critical care, ID and other specialties on board. * Patient being considered for possible palliative care, and changing CODE STATUS, as per report from critical care/IM. * Dr. Vladimir Jimenez to resume neurology service from Saturday morning.
[2024-01-04] MEDS: bisacodyL 10 MG SUPP RECTAL SCH (10:55)
--- NOTE | 2024-01-04 11:05 | P.PN ---
Subjective Progress Note Date: 01/04/24 Principal diagnosis: Abdominal pain. This is a 73-year-old white male with history of chronic abdominal pain for the last 8 months has been treated with Protonix 40 mg daily for the last 3 months with no improvement. Patient had a 22 pound weight loss in the last [address] of the abdomen and pelvis 3 weeks ago showed thickening of the antral wall with pathological adenopathy posterior to the stomach suspicious of neoplasm. Today the patient underwent elective upper endoscopy to evaluate further, patient received IV sedation by anesthesia endoscope was inserted into the mouth, esophagus was intubated without any difficulty there was evidence of large amount of liquid and solid food noted in the stomach suggestive of gastric outlet obstruction. Scope could not be advanced through the pylorus, however in the prepyloric area there was a large superficial ulceration identified with multiple biopsies were done from this area. The body cardia and fundus could not adequately visualize because of large amount of retained food in the stomach. Scope was withdrawn back to the stomach and upon careful examination the mucosa of the antrum body and cardia as well as the fundus appeared normal. Procedure was being performed and biopsies were done patient threw up and subsequently became hypoxic there was clearly evidence of witnessed aspiration anesthesia intubated the patient, procedure was terminated, and the patient was transferred to the ICU, this consult was initiated. Patient is now on assist- control rate of 20 tidal volume 500 FiO2 70% PEEP of 10 ABG is pending, earlier ABG showed profound hypoxia patient is on propofol at 50 mcg/kg/min, next ABG is pending. Chest x-ray showed chronic changes without evidence of acute pulmonary disease. Patient was seen and examined today on 11/13/2023, remains in the ICU, intubated mechanically ventilated, on assist-control rate of 20 tidal volume 500 FiO2 50% and PEEP of 10 ABG showed a pO2 of 143 pCO2 47 pH of 7.28 hence PEEP was cut down to 6, and increased rate to 22. Patient is still requiring IV fluid at 100 cc/h/LR. Requiring norepinephrine at 0.08 mcg/kg/min he is also on propofol at 50 mg/kg/min antibiotics arce patient is receiving Zosyn. Chest x-ray is showing worsening infiltrates specially in the left lung. This could be related to aspiration pneumonia. Patient had witnessed aspiration during endoscopy/upper endoscopy.WBC count is 14 hemoglobin 7.6 basic metabolic profile is normal BUN is 26 creatinine 1.57 obviously the patient sustained some acute kidney injury baseline creatinine 0.86 patient had received fluids over the last 24 hours, remains on fluids at 100 cc/h Patient with seen and examined today on 11/14/2023, patient remains in the ICU, intubated and mechanically ventilated. Failed weaning trial yesterday and he became quite agitated and desaturated once he went off propofol. Had to be placed back on assist-control mode of mechanical ventilation and sedation. Today the patient is on assist-control rate of 22 tidal volume 500 FiO2 50% PEEP of 6. ABG showed a pO2 of 123 pCO2 51 pH of 7.32, and I cut down his FiO2 down to 45%, patient is receiving a unit of packed RBCs for hemoglobin of 6.9 today. Patient had an episode of A-fib RVR at 3 AM in the morning, seen by cardiology, and recommended patient goes on amiodarone. Still requiring norepinephrine at 0.05 mg/kg/min, he is on LR at 100 cc/h propofol at 50 mg/kg/min. Remains empirically on Zosyn for aspiration pneumonia. My plan today is transitioning the patient to Precedex, hopefully discontinue propofol, and at least give the patient a decent weaning trial or at least check weaning parameters before we proceed to weaning trial. Chest x-ray continues to show evidence of pneumonia mostly in the left lung and left lower lobe more specifically. Some pulmonary vascular congestion is noted with interstitial edema, small pleural effusion is also noted/left side. WBC count today is 12 hemoglobin 6.9 basic metabolic profile is normal bicarb is 25, BUN is 25 creatinine is improving down to 1.21 from 1.57 yesterday Patient was evaluated today on 11/15/2023, patient remains in the ICU, he was extubated yesterday, and his extubation was relatively uneventful. However the patient continues to have nasogastric tube in place, his pathology report came back showing non-Hodgkin's lymphoma, patient has gastric outlet obstruction, and the recommendation by GI is to consult surgery for a jejunostomy tube which is appropriate. Patient will be seen today by oncology and [facility] In the meantime patient is comfortable, he is on 5 L nasal cannula he has LR running at 100 cc/h, he is remains on Zosyn for aspiration pneumonia remains on amiodarone which was started by cardiology for atrial fibrillation with RVR, presently in sinus rhythm. Cannot switch him to oral because of the fact that remains n.p.o., patient remains on TPN. WBC count is 10.7 hemoglobin 7.5 electrolytes are normal renal profile is normal, creatinine normalized to 0.96 Patient was evaluated today on 11/16/2023, remains in the ICU, on 5 L nasal cannula remains on amiodarone at 0.5 mg/min remains on LR at 100 cc/h, however his chest x-ray is showing some component of interstitial edema or could be findings related to his recent episode of aspiration/aspiration pneumonia, nonetheless the patient seems to be a bit symptomatic, he has intermittent cough and wheezing, I am recommending Lasix 40 mg IV push, cut down his IV fluid to 50 cc/h, continue Zosyn, patient will be placed on DuoNeb updrafts and on Solu- Medrol. Patient is scheduled to have jejunostomy-tube placement today. WBC count is 13 hemoglobin 7.7 basic metabolic profile is normal and renal profile is normal Patient was evaluated today on 11/17/2023, patient underwent uneventful placement of a jejunostomy tube yesterday, in the ICU on 5 L, patient is relatively stable, not in any distress, patient continues to have nasogastric tube in place although he did have a J-tube placed yesterday. Patient was seen by oncology for his non-Hodgkin's lymphoma involving the gastric outlet. Today's x-ray showed evidence of pneumonia/bilateral interstitial infiltrate/edema patient was given a dose of Lasix, I reminded the patient had an aspiration episode which was significant. And he required intubation mechanical ventilation for a few days.WBC count today is 9.1 hemoglobin 7.9 electrolytes are normal renal profile is normal hence I plan to transfer the patient out of the ICU to a cardiac floor. And hopefully discharge planning in the next 2 days for The patient was seen today November 18, 2023 in follow-up in the intensive care unit. He is currently sitting up in bed. Awake and alert in no acute distress. He is maintaining O2 saturations in the 90s on 5 L/min per nasal cannula. Glucose 177. Remains on DuoNeb inhalations and Solu-Medrol. Antibiotics in the form of Zosyn. He has a J-tube in place. He was initiated on vital AF 1.2 at 10 mL an hour with a goal of 82 mL/h The patient is seen today November 19, 2023 in follow-up in the intensive care unit. He is a regular medical floor overflow patient. He is currently sitting up in a chair. Awake and alert in no acute distress. He is maintaining O2 saturations in the 90s on 5 L/min per nasal cannula. No IV fluids. He denies any worsening shortness of breath, cough or congestion. He is having some issues with diarrhea. He remains on Zosyn. He is receiving vital AF at 55 mL/h with a goal of 82 mL/h. Glucose 161. Solu-Medrol, DuoNeb inhalations. The patient is seen today November 20, 2023 in follow-up on the regular medical floor. He is currently up in a chair at the bedside. Awake and alert in no acute distress. Denies any worsening shortness of breath, cough or congestion. He is maintaining O2 saturation in the 90s on 3 L/min per nasal cannula. He continues on Zosyn. Continues on bronchodilators and steroids. White count 12.3. Hemoglobin 9.0. Platelets 258. Glucose 168. He is not tolerating his tube feeds as he has developed diarrhea. C. difficile screen was negative. Abdominal series revealed cardiomegaly with left basilar acute infiltrate and/or atelectasis. Overall nonspecific bowel gas pattern. A small bowel obstruction needs to be considered. Progress note dated November 21, 2023. The patient is seen in room 517. The patient is currently on 3 L of oxygen. He continues on Zosyn. His biggest complaint has been abdominal discomfort and diarrhea. He did have a CT scan of the abdomen and pelvis. Current laboratory data includes a white count of 14.4, hemoglobin 8.8, hematocrit 28.7, and platelet count 229,000. Sodium 139, potassium 4.1, chlorides 103, CO2 30, BUN 42, creatinine 0.94. Glucose is 158. Calcium is 8.5. Progress note dated November 22, 2023. 73-year-old male seen in room 517. He currently is on 2 L of oxygen. Room air saturation was 89%. Chest CT shows bilateral patchy infiltrates. He continues on Zosyn. He is still not taking anything by mouth. No new laboratory data today other than a glucose of 138. Gram stain was negative. Progress note dated November 23, 2023. 73-year-old male seen in room 517. He is resting comfortably without com plaints. He continues on saline at 10 cc an hour, tube feedings with Pivot at 20 cc an hour, Zosyn, and 2 L by nasal cannula. He has had an uneventful night. Laboratory data today includes a white count 14.5, hemoglobin 9.7, hematocrit 31.4, and a platelet count of 242,000. Sodium 138, potassium 3.7, chlorides 106, CO2 26, BUN 39, creatinine 0.95. Glucose is 181. Calcium is 8.5. Sputum sampling was negative. Progress note dated November 24, 2023. 73-year-old male who is seen in room 517. The patient has been having significant abdominal discomfort, and went for a evaluation, ordered by surgery today, to determine whether or not the feeding tube, was in proper position, and whether or not there is anything acutely going on in the abdomen. He had been having diarrhea. He is on 3 L of oxygen. He has been here for 12 days. This is a patient, that had a prior EGD, aspirated, because of gastric outlet obstruction, and was diagnosis of non-Hodgkin's lymphoma. He is currently on Zosyn, DuoNebs, and Solu-Medrol. He has been NPO. Chest x-ray showed a left lower lobe infiltrate. Abdominal x-ray showed multiple air-fluid levels. CT of the abdomen showed multiple dilated small bowel loops, consistent with obstruction, pneumoperitoneum, ascites, and cholelithiasis. White count was 14.1, hemoglobin 8.9, hematocrit 29.5, and platelet count was 255,000. Glucose was 143. 11/25/2023, the patient is being seen in the intensive care unit. The patient is critically ill, n.p.o., he has an NG tube in place. Following the NG tube insertion, there was a total of 2.0 L of output and the patient's J-tube was also draining approximately 200 cc over the past 8 hours. Continues to have abdominal pain which is rather diffuse and the patient has direct abdominal tenderness. CAT scan of the abdomen was noted and was consistent with small bowel obstruction. The patient has a stomach that was inflated and in the same time there were multiple loops of small bowel distended with fluid. This extended to the pelvis. J-tube with contrast nondilated small bowel loops within the mid abdomen. Additional loops of small bowel were seen that was dilated. There was some contrast in the right lower quadrant and contrast was also in the cecum. No transition point was identified. The dilated loops of the bowel appeared to be in the proximal jejunum and distal to the duodenum. General surgery is on the case the patient will be taken to the operating room for another exploratory laparotomy. Noted the CAT scan of the abdomen also showed pneumoperitoneum and small amount of ascites and cholelithiasis. Hemodynamically, the patient is currently on normal saline at rate of 75 cc an hour. He is hypotensive and is going to be started on pressors. He is on 4 L of oxygen by nasal cannula. He also has sustained acute kidney injury. Blood work from today shows a rise in the creatinine which is currently up to 2.5 with a BUN of 57. Serum bicarb is at 14 with an anion gap of 11. The patient WBC count is at 8.2 with a hemoglobin of 12.3 and a platelet count of 188. Chest x- ray from this morning is showing a right-sided port and a stable left lung airspace disease and an NG tube being in place. The patient remains on IV Zosyn. The patient is receiving Dilaudid for pain control. The patient remains on IV Solu-Medrol 60 mg every 6 hours. It was noted that the patient's surgical wound over the port has dehisced and there is some serous drainage and erythema at the incision site. Awake and alert and communicating. Family at the bedside. No apparent signs of respiratory distress at this point. 11/26/2023, the patient is being seen in follow-up. Events from yesterday was noted and the patient was taken to the operating room for exploratory laparotomy. The patient was found to have large amount of free fluid noted in the abdomen and there was significant contamination. There was perforation of the small bowel with the balloon of the previously inserted jejunostomy tube penetrating through the perforation. As such, the tube was removed, abdominal washout was done. Small bowel resection was done and the patient had a nodular jejunostomy tube inserted. Postop, the patient was extubated he was unable to tolerate extubation and the patient was kept intubated on mechanical ventilator and he was brought back to the intensive care unit. He is currently postop day #1 following his small bowel resection. Abdominal surgical wound site is dry c lean and intact. This morning, the patient remains sedated on propofol which is currently running at 35 mcg/kg/min. He is on assist-control mode of mechanical ventilation at rate of 28, tidal volume of 550, FiO2 of 60% with a PEEP of 5. Blood gas from today shows a pH of 7.35 with a pCO2 44 and pO2 of 88. Chest x- ray shows adequate positioning of the orotracheal tube. The patient has a Mediport on the right and a subclavian triple-lumen catheter on the left and the patient has persistent bilateral pleural effusion and infiltrates in lung base bilaterally. Hemodynamically, the patient remains in shock. He has been on high-dose norepinephrine which is currently running at 0.28 mcg/kg/min and the patient is also on vasopressin at 0.03 units an hour. He is IV fluids are in the form of bicarb infusion running at rate of 150 cc an hour. He is in sinus tachycardia. NG tube output has been 250 cc over the past 8 hours and the output from the J-tube is minimal at this point in time. Urine output is quite diminished as the patient has also sustained acute kidney injury. Overall fluid balance is +4.9 L over the past 24 hours. The patient's white cell count of 5.7 with a hemoglobin 9.9 and platelet count of 172. BUN is 72 with a creatinine of 2.8 and sodium levels at 143. The calcium level is at 6.5. LFTs are normal. Triglyceride level is at 315. On 11/27/2023, the patient remains critically ill. Remains intubated and on mechanical ventilator, still awaiting shock which is essentially septic shock. Remains on propofol which is running at 50 mcg/kg/min. Remains on the mechanical ventilator, assist-control mode with rate of 28, tidal volume of 550 with an FiO2 of 60% with a PEEP of 5. Blood gas shows a pH of 7.29 with a pCO2 of 47 and pO2 of 78. The patient had a follow-up chest x-ray that showed lower lobe consolidation slightly worse on the right and the orotracheal tube is in a good location. Urine output is diminished in the order of 5 to 10 cc an hour and the patient is also developing progressive worsening renal function. Remains on normal citrate of 150 cc an hour and the patient was started on TPN which is running at 30 cc an hour. He has a triple-lumen catheter in his left subclavian. Overall fluid balance over the past 24 hours is +3.9 L. Output from the NG tube and the J-tube is minimal. Hemodynamically, he is hypotensive and norepinephrine running at 0.45 mcg/kg/min. Vasopressin is a physiologic dose. He received amiodarone and he remains on maintenance amiodarone of 0.5 mg/min and the patient continues to be in atrial fibrillation and is having episodes of tachycardia. The white cell count is at 13, hemoglobin 9.4 platelet count is pending. The patient's BUN is 83 with a creatinine of 3.7. Sodium is at 140 with a potassium level of 5.5 dropped down to 4.4 as the sample was hemolyzed. LFTs are normal. Abdominal wound is dry clean and intact. RAYA drainage is essentially serous at this point in time. 11/28/2023, the patient is being seen for a follow-up. The patient remains intubated on mechanical ventilator. This morning, the patient tolerated propofol drip running at 50 mcg/kg/min. The patient is on mechanical ventilator assist-control mode with rate of 28, tidal volume of 550, FiO2 55% with a PEEP of 5. Chest x-ray shows stable findings with lower lobe consolidations bilaterally. Blood gas shows a pH of 7.32 with a pCO2 38 and pO2 90. Neuropathy has improved and the patient is producing approximately 30 cc an hour and the overall input output balance is +3.3 L over the past 24 hours. The patient is still on pressors although his pressor requirements have improved since yesterday. He is on norepinephrine which is running at 0.05 mcg/kg/min and vasopressin physiologic dose. Also, the patient on amiodarone drip regarding his chronic ongoing atrial fibrillation. Amiodarone drip is running at 0.5 mg/min. Nevertheless, the rate is under much better control. Noted the patient was given a dose of digoxin 0.5 mg IV yesterday which helped with rate control. Remains on normal citrate of 150 cc an hour. Remains on TPN at 40 cc an hour. Output from the J-tube is fecal. Output from the NG tube is more gastric. Surgical wound site is dry clean and intact. Sputum Gram stain and culture showing Pseudomonas and Citrobacter. Note that the Citrobacter was intermediate resistance to Zosyn. This will be discussed further with infectious disease. Blood cultures are still pending for now. They have negative based on the most recent check. Blood work from today shows WBC count 11.2, hemoglobin 7.9 and platelet count of 46. Sodium is at 140, potassium is at 4.3, chloride is 114 with a bicarb of 18. He has 93 and the creatinine is 4.8. Serum random vancomycin level is at 25.7. On 11/29/2023, the patient is being seen for a follow-up. Remains intubated on the mechanical ventilator. The patient sedated on propofol which is running at 35 mcg/kg/min. Synchronous with mechanical ventilator. On today's evaluation, he is on assist-control mode with rate of 28, tidal volume of 550, FiO2 55% with a PEEP of 5. Chest x-ray shows lower lobe consolidation bilaterally worse on th e right and the orotracheal tube is in good location. The blood gas showed a pH of 7.34 with a pCO2 of 35 and a pO2 of 84. No significant orotracheal secretions. Hemodynamically improved compared to yesterday. In fact, the patient is on minimal norepinephrine that was discontinued earlier this morning. The patient has converted to normal sinus rhythm. Remains on amiodarone at 0.5 mg/min. Overall fluid balance over the past 24 hours is 2.4 L positive. Urine output has been adequate and the patient is currently on IV Lasix. Nevertheless, the patient has developed progressive worsening renal function. Creatinine is up to 5.3 on today's evaluation with a potassium level of 4.4. Serum bicarb is at 18 with an anion gap of 9. WBC count is at 8.1 with a hemoglobin of 7 and a platelet count of 32 which has dropped compared to earlier evaluation. The rest of the coagulation profile was normal from 11/28/2023. Fibrinogen level is slightly elevated. Sputum samples have shown a combination of Citrobacter and Pseudomonas aeruginosa. Based on cultures and sensitivities, the patient will be taken off his IV Zosyn and he will be switched to IV meropenem. Output from the J-tube is fecal. Output from the NG tube is gastric and surgical wound site is dry clean and intact. He is afebrile for now. Hemodynamically, the patient is doing better. He remains on TPN for nutritional support. IV fluids are also running at a rate of 75 cc an hour. Remains on vancomycin. 11/30/2023, the patient is being seen for a follow-up. The patient remains on propofol at 50 mcg/kg/min. Ventilator settings are essentially unchanged. The patient remains on assist-control mode with rate of 18, tidal volume of 400, FiO2 50% with a PEEP of 5. The blood gas showed a pH of 7.37 with a pCO2 of 43 and pO2 of 127. Chest x-ray shows no significant interval change. Patient remains on normal saline at rate of 75 cc an hour and TPN at rate of 35 cc an hour. Fluid balance is positive. Hemodialysis was performed yesterday and the second session of hemodialysis to be done today. The patient's urine output is in the order of 20 to 30 cc an hour. The patient has an NG output of 350 cc for yesterday and the drainage from the J-tube is in the order of 400 cc over the past 24 hours. The blood work shows a WBC count of 10.8, hemoglobin 8.1 and platelet count of 41. Platelet counts are essentially stable and slightly improved compared to yesterday. The sodium level is at 133, potassium is at 4.3, BUN is 93 with a creatinine of 3.6. LFTs are within normal limits. Albumin is down to 2.1. The patient is currently on no pressors. Norepinephrine and vasopressin are both discontinued and the patient remains in normal sinus rhythm. No other significant events overnight. Family has been updated on his condition. Antibiotic coverage is currently with IV meropenem. Vancomycin and Zosyn have been both discontinued. On 12/01/2023, the patient remains sedated on propofol which is running at 25 mcg/kg/min., Comfortable and synchronous mechanical ventilator. The patient remains on assist-control mode rate of 28, tidal volume of 550, FiO2 40% and PEEP of 5. Blood gas shows a pH of 7.49 with a pCO2 of 34 and pO2 of 121. Patient underwent hemodialysis yesterday. No plans for hemodialysis today the patient is producing urine output. Remains on TPN for nutrition support rate of 75 cc an hour. IV fluids are currently at KVO. The chest x-ray from today shows bilateral lower lobe consolidation worse on the right. No significant change in the volume status. The patient continues to have third spacing and edema in all 4 extremities. Nevertheless, urine output is adequate at this point in time and the patient remains on Lasix 80 mg IV every 12 hours. Remains NPO. NG tube and J-tube are both drainage. Output is noted. Remains on IV meropenem. Afebrile. Currently on no pressors. Blood work shows a WBC count of 11.4, hemoglobin of 8.1 and platelet count of 46. Sodium is at 131, potassium level is at 3.7, chloride 101 and bicarb is at 24. BUN is 84 with a creatinine of 3.6. Glucose of 228. LFTs are within normal limits. Patient was reevaluated today on 12/02/23, patient remains in the ICU, patient is familiar to my service, I saw this patient 3 weeks ago. Since then he had a very complicated hospital course, related to his jejunostomy tube dislodging and leaking and picture of abdominal sepsis and worsening pneumonia/ARDS. Patient had to be placed back on mechanical ventilation, and he is now intubated and mechanically ventilated. He is on assist-control rate of 20 tidal volume 550 FiO2 40% PEEP of 5 ABG showed a pO2 of 111 pCO2 38 pH of 7.43 and I cut down his FiO2 to 35% and increase his flow rate from 60-70. Patient remains on TPN at 75 cc/h he is on propofol at 25 mcg/kg/min patient is on Cleviprex which I added today for elevated blood pressure. Receiving Lasix 80 mg every 12 hours is also on Merrem as per infectious disease. Patient is on hemodialysis and being followed by nephrology. Patient required multiple abdominal surgeries since his initial admission. Chest x-ray continues to show worsening pneumonia involving both lungs, right more so than left, I suspect there may be a component of ARDS. His initial presentation was the presentation of aspiration pneumonia to begin with and that was 3 weeks agoWBC count is 10.3 hemoglobin 8.6 sodium 131 potassium 4 chloride 100 bicarb 23 BUN is 111 creatinine 4.02 blood sugar is 248. Albumin is 1.9 Patient was evaluated today on , patient remains in the ICU, intubated and mechanically ventilated. Patient is on assist-control rate of 20 tidal volume 550 FiO2 35% and PEEP of 5 ABG showed a pO2 of 99 pCO2 39 pH of 7.44 patient is undergoing hemodialysis today, and the plan is to remove 2 L. He is remains on propofol at 35 mcg/kg/min, remains on TPN at 75 cc/h. Remains on Merrem. Patient is not requiring any pressors today. Yesterday patient did not tolerate to be off sedation long enough, and today we tried the same sedation interruption, and the patient did not do well post interruption of sedation, became extremely agitated restless, tachycardic, and could not fully assess mental status off sedation. Hence the patient was placed back on AC mode of mechanical ventilation, and the plan is to continue the same supportive care measures. Family updated on his condition and most likely the patient will end up requiring tracheostomy in the next few days.WBC count is 8.5 hemoglobin 8.2 basic metabolic profile is relatively unremarkable BUN is 89 creatinine 3.45 chest x-ray today showed stable chest, suspect some right-sided pleural effusion which would likely improve with hemodialysis/ultrafiltration. X-ray of abdomen showed nonspecific nonobstructive bowel gas pattern Patient was seen today on 12/04/2023, remains in the ICU, intubated mechanically ventilated, on assist-control rate of 20 tidal volume 550 FiO2 35% PEEP of 5 ABG showed a pO2 of 112 pCO2 38 pH of 7.45, hence no changes were made in ventilator settings. Patient is on propofol at 35 mcg/kg/min he is also on IV fluid at KVO TPN at 75 cc/h. Remains on hemodialysis remains on Lasix 80 mg IV push twice daily, remains on Merrem. This x-ray continues to show the same findi ngs/airspace disease in both lungs, not much of a change in the last 2 days, however his oxygenation seems to be improved. WBC count is 7.1 hemoglobin 7.7. Electrolytes are normal, BUN is elevated 77 creatinine 3.32, patient is on hemodialysis. His condition was discussed today with the at bedside, and I do not believe the patient is ready to be weaned or extubated, however he seems to get extremely agitated when he goes off propofol, today I plan to transition propofol to Precedex, give him a trial on Precedex and determine whether the patient becomes more appropriate and at least ready for any weaning trials. Clinically I doubt if this will happen but we will go ahead and try Patient was evaluated today on 12/05/2023, remains in the ICU, intubated mechanically ventilated, not much of a change noted in the last 24 hours. Remains on assist-control of 20 tidal volume 550 FiO2 35% PEEP of 5 ABG showed a pO2 of 90 pCO2 37 pH of 7.48 hence chose not to change any of his ventilator settings. Yesterday the patient failed again trial of weaning, and he was never anywhere near ready to be weaned in spite of placing him on Precedex and off propofol, at 1 point the patient became extremely agitated restless and he was biting on the endotracheal tube could not fully awake the patient and determine improvement in his mental status. Hence patient was placed back on propofol yesterday and he remains on propofol today. He is on propofol at 25 mcg/kg/min he is on TPN at 75 cc/h surgery is considering starting his J-tube feedings today. Remains on hemodialysis remains on Merrem remains on Lasix 80 mg IV push twice daily overall not much of a change his chest x-ray is basically about the same showing bibasilar airspace disease. Today I had a discussion with the regarding the option of tracheostomy extremely reluctant to have it done yet. Said that the patient had multiple complications with previous surgeries and she is afraid that he is going to have another complication with the surgeryWBC count is 10.2 hemoglobin is 8, basic metabolic profile is normal sodium 130 BUN 70 creatinine 2.89 Patient was seen today on 12/06/23, remains in the ICU, intubated mechanically ventilated, his ventilator settings are assist-control rate 20 tidal volume 550 FiO2 35% and PEEP of 5 ABG showed a pO2 of 103 pCO2 36 pH of 7.47 patient opens eyes but does not follow any other instructions. He is now off propofol for the last 24 hours, he is maintained on Precedex at 0.4, TPN at 75 cc/h vital AF at 5 mL/h. Patient remains on Merrem, patient did not receive dialysis today because issues related to occluded dialysis catheter. Nonetheless the patient is making urine, and continues to improve with diuretics. 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 Blood sugar is 226. Family is at bedside, considering his overall mental status at this point, not quite ready to start checking weaning parameters, and is not ready for weaning. Nonetheless I plan to keep him on Precedex, and hopefully avoid narcotics and other sedatives. His mentation starts clearing a bit more, then will start trials of weaning parameters and/or weaning trials Patient was seen today on 12/07/2023, remains in the ICU, intubated and mechanically ventilated, on assist-control rate of 20 tidal volume 550 FiO2 35% PEEP of 5 ABG showed a pO2 of 83 pCO2 33 pH of 7.50 hence the tidal volume was cut down to 500. Patient remains off propofol remains off narcotics is only on Precedex for sedation at 0.6 mg/kg/h. He is on norepinephrine at 0.02 TPN at 75 cc/h IV fluid at KVO vital AF at 10 mL/h is also on Merrem. Neurologically I am concerned about this patient neurological status, does not seem to be waking up much, he opens his eyes but does not follow any instructions and spite of sedation hold for quite some time. Hence I am recommending a CT of the brain and multiple recommending a neurological consultation on this patient. WBC count is 18 7 hemoglobin is 8.4, basic metabolic profile is normal BUN is 75 creatinine 2.95, patient is back on dialysis, he had a new hemodialysis catheter placed yesterday by vascular surgery, and he will be restarted back on hemodialysis. CT of the brain done shortly after evaluating the patient showed no acute intracranial process chest x-ray basically about the same, continues to show small left and moderate right basilar infiltrate. Has not changed much over the last 1 week, patient remains on antibiotics. Patient was seen today on 12/08/2023, remains in the ICU, intubated and mechanically ventilated, remains on assist-control rate of 20 tidal volume 500 FiO2 35% PEEP of 5 ABG showed a pO2 of 88 pCO2 37 pH of 7.47 hence no changes were made in ventilator settings. Chest x-ray is showing slight increase in his right-sided pleural effusion, however his oxygenation seems to be about the same, and the patient is responding to Lasix given at 80 mg IV push every 12 hours, he is also doing well with hemodialysis he had 2 L removed yesterday and 2 L the day before. Hence will not recommend thoracentesis at this point. But the pleural effusion will need to be closely monitored. Patient remains off propofol he is on Precedex at 0.6 mcg/kg/h. For the last 2 days, and his mentation is not much different from baseline. Continues to open his eyes and does not follow any other instructions has the patient is clearly not ready for weaning trials or extubation. Brought up the issue of tracheostomy again with the , she is still reluctant to proceed with tracheostomy on him at this point. Patient remains on Merrem, remains on TPN but his enteral feeding will be advanced today to full goal, and if that happens then we will can discontinue TPN. Patient is receiving vital AF 1.2@10 mL/h at this point.WBC count is 19.3 hemoglobin 7.6. Basic metabolic profile is normal BUN is 72 creatinine 2.99 blood sugar ranging between 250 up to 334. 12/09/23 - patient seen at bedside today, remaining in the ICU, intubated and mechanically ventilated, remaining on assist-control rate of 20, tidal volume 500, FiO2 30%, PEEP of 5 and oxygen saturation of 100%. Patient is on day 27 of his hospital stay (admitted 11/11), day 15 of this current ICU stay (readmit to the ICU 11/24) and day 15 of this current period of time on the ventilator (placed 11/24). ABG showed pO2 100, pCO2 36, pH 7.47. Chest x-ray was deemed to be stable, however possibly with slight improvement noted on the left with a right-sided pleural effusion remains evident however the patient's oxygenation remains to be about the same. Continue to receive 80 mg IV Lasix every 12 hours and is receiving daily hemodialysis, in which he has been having 2 L removed the past couple of days, hemodialysis yet to occur today. His creatinine is 3.57 (compared to 2.99 yesterday) and BUN 98 (compared to 72 yesterday). Due to this response to diuresis and hemodialysis, no thoracentesis recommended at this point however pleural effusion will need to continue to be monitored. Patient shon off propofol, he is on Precedex at 0.4 mcg/kg/h. Due to his mentation remaining near baseline, neurology had been consulted who ordered an EEG which showed diffuse background slowing of his severe degree which is suggestive for generalized cerebral dysfunction and can be seen with toxic metabolic encephalopathy, as well as the presence of sporadic intermittent, some higher amplitude, sharply contoured waves of generalized distribution. Because of this per neurology's recommendation, patient started on Keppra 500 mg twice daily. The patient does seem to be having some improved mentation, with opening his eyes and responding to commands some of this morning. Spontaneous breathing trial to be attempted today, to see if the patient will be able to come off of mechanical ventilation. If that is unable to occur, discussed with the patient as well as his and one of his daughters that a tracheostomy would be the most appropriate next course of action due to the potential dangers of sustained endotracheal intubation for prolonged period of time. The , while reluctant, seem to acknowledge that this is the appropriate course of action. He remains receiving meropenem 1 g nightly. He remains on TPN 75 mL/h, which she has been on since 11/21 (18), but his enteral feeding has been vital 1.2 AF at 10 mL/h with a goal rate of 80 mL/h. Patient drained 60 mg of serosanguineous fluid from his RAYA. His WBCs increased to 21.5 (compared to 19.3 yesterday), hemoglobin dropped to 7.2 (compared to 7.6 yesterday), hematocrit dropped to 22.0 (compared to 22.9 yesterday) and patient procalcitonin remains elevated at 3.07. 12/10/23 - Patient seen at bedside today, remaining in the ICU, intubated and mechanically ventilated, remaining on assist-control rate of 20, tidal volume 500, FiO2 30%, PEEP of 5 and oxygen saturation of 100%. Patient is on day 28 of his hospital stay (admitted 11/11), day 16 of this current ICU stay (readmit to the ICU 11/24) and day 16 of this current period of time on the ventilator (placed 11/24). ABG showed pO2 93, pCO2 37, pH 7.47, showing evidence of a mild metabolic alkalosis. Chest x-ray today showed stable disease compared to yesterday. He received levo overnight due to atypical blood pressure, patient's TPN was up to 120 due to the change in formula. Patient is scheduled to undergo tracheotomy today (12/09) at 16:30. Per the nurse and the overnight staff patient continues to open his eyes and shows some responsiveness to commands. Per nephrology's recommendation dialysis to be held today due to the patient going for the tracheotomy later, as well as the dip in blood pressure seen after yesterday's dialysis session which required Levophed. Patient's Hgb this morning 6.6, will be given 1 unit today, which will be the second unit he has received during his hospital course. Patient's airway resistance noted to be 3.3 cm/L/s, static lung compliance shown to be 45 mL/cm H2O and dynamic compliance 33 mL/cm H2O. 12/11/23 - Patient seen at the bedside, remaining in the ICU, with a tracheotomy tube and mechanically ventilated while receiving dialysis. Patient remains on assist-control rate of 20, FiO2 30%, PEEP of 5 and has an oxygen saturation of 97%. Patient is on day 29 of the hospital stay (admitted 11/11), day 17 of his current ICU stay (readmitted to the ICU 11/24) and day 17 of his current period of time on the ventilator (placed 11/24). ABG today showed pO2 115, pCO2 38, pH 7.44 continuing to show evidence of a mild metabolic alkalosis. Chest x-ray today showed stable disease. Patient had tracheotomy placed yesterday afternoon (12/09) without any complications. Patient has had 3 consecutive days of attempting spontaneous breathing trials in an effort to wean the patient off the ventilator, all of which failed to this point. Beginning today the patient's antibiotics (meropenem) will be discontinued and we will begin weaning his propofol down from 25 mcg/kg/min. As the patient is weaned off of the propofol, 0.5 Dilaudid and 1 mg IV Ativan to be used every 6 hours as needed. Patient is continuing to receive normal saline 20 cc/h, and has a total of 200 mL of serosanguineous fluid from his RAYA drain. TPN to continue at a rate of 120 mL/h additionally tube feeds, which had been held due to the patient receiving s traight catheter yesterday, will be restarted today with an ultimate goal being to receive enteral nutrition at a rate of 80 mL/h. TPN to continue until able to increase the enteral nutrition to at least 50 mL/h, as per the dietitian's recommendation. Will be exploring the possibility of the patient being moved to select specialty. 12/12/23 - Patient seen at the bedside this morning, in ICU room 253, while receiving and EEG, no significant events overnight. Patient remains with tracheotomy and is mechanically ventilated on assist control with a rate of 20, tidal volume 500, FiO2 30%, PEEP of 5 with an oxygen saturation of 98%. Patient is on day 30 of the hospital stay (admitted 11/11), day 18 of his current ICU stay (readmitted to the ICU 11/24) and day 18 of his current period of time with mechanical ventilation (placed in 11/24). ABG today showed pO2 92, pCO2 36, pH is 7.49 continue to show signs of a combined respiratory and metabolic alkalosis. WBC 17.9, Hgb 7.4, Hct 22.6, PLT 151; sodium 133, potassium 4.0, HCO3 27, BUN 88, creatinine 2.96. Chest x-ray done today continuing to show patchy infiltrate throughout the right lung with layering effusion. Patient is continuing to receive normal saline 20 cc/h, continues to receive Dilaudid 0.5 mg IV push every 6 hours as needed, as well as Ativan 1 mg IV every 6 hours as needed. Patient is no longer maintained on propofol. TPN continues at a rate of 120 mm/h and EN vital AF at 30 mL/h with a goal of 40 mL/h. Once goal is reached, TPN can be discontinued and patient will be switched over to Nepro 50 mL/h. Following the patient having 3 consecutive days of attending spontaneous breathing trials and effort to wean, we will begin trying the patient with CPAP and pressure support in effort to wean, today's trial the patient will be placed on PS 5 and PEEP of 5 for 25-45 minutes, or as he is able to tolerate it. Disc ussed with the patient's the importance of continuing to wean the patient's with trials, in an effort to build up some of the strength in his lungs to better be able to tolerate breathing on his own. Will continue to evaluate for possible placement in a long-term acute care facility. 12/13/23 - Patient seen at the bedside this morning, in ICU room 253, with no significant events overnight noted. Patient remains with tracheotomy and is mechanically ventilated on assist control with a rate of 20, tidal volume 500, FiO2 30%, PEEP of 5 with an oxygen saturation of 98%. Patient is on day 30 one of the hospital stay (admitted to 11/11), day 19 of his current ICU stay (readmitted to the ICU 11/24) and day 19 of his current period of time with mechanical ventilation (placed 11/24). ABG today showed pO2 87, pCO2 36, pH 7.48 continue to show signs of a combined respiratory metabolic alkalosis. WBC 17.3, Hgb 8.0, Hct 25.3, PLT 191; sodium 136, potassium 4.1, BUN 116, creatinine 3.17. This x-ray done today continues to show stable disease. Patient had an EEG completed yesterday (12/11) which showed an abnormal EEG, study being limited because of diffuse myogenic artifact. Background slowing suggestive of severe encephalopathy. Otherwise no appreciable epileptiform discharges, focal slowing, or seizure noted during the exam. Patient continues to receive Dilaudid 0.5 mg IV push every 6 hours as needed, as well as Ativan 1 mg IV every 6 hours as needed. Patient's TPN has been stopped, he is not receiving Nepro at 50 mL/h, which is goal. Patient Solu-Medrol has been discontinued, patient now receiving 30 mg prednisone daily. Patient's trial yesterday with CPAP and pressure support with the patient was sent PS of 5 and PEEP of 5, patient tolerated 40 minutes well it was noted that his respiratory rate increased and his minute ventilation also increased during this time. Will continue with another weaning effort today and continue to reassess how the patient tolerates. He will be receiving hemodialysis today, with the plan to hold over the weekend and then reassess Saturday per nephrology. Additionally IV Lasix has been discontinued on this patient, nephrology did state that he may need to resume receiving the Lasix if the urine output tapers. Progress note dated December 14, 2023. The patient is seen today in room 253. The patient remains on the mechanical v entilator. His settings include volume assist-control, rate 20, tidal volume 500, FiO2 30%, PEEP of 5. Blood gases show pO2 of 76, pCO2 of 36, pH of 7.47. The patient is getting saline at 10 cc an hour, and Nepro at 50 cc an hour which is goal. The patient will go back on pressor support of 5 and CPAP of 5 today. Yesterday, he spent 2-1/2 hours on pressure support. The patient did have a tem perature last night. He discussed some purulent drainage at the wound site. I have asked surgeon to come back and see the patient. In addition, the nurse will get blood, urine, sputum, and wound cultures going. He is not on any antibiotics. We will check a procalcitonin level. White count of 16.7, hemoglobin 8.1, hematocrit 24.5, platelet count is normal. Sodium 135, potassium 3.9, chlorides 103, CO2 24, BUN 106, creatinine 3.04. Calcium is 7.1. Magnesium is 2.0. Urine is yellow, with 1+ protein, 6 WBCs, and rare bacteria. Chest x-ray shows a stable chest x-ray, which is largely unchanged. Progress note dated December 15, 2023. 73-year-old male seen again in room 253. The patient remains on mechanical ventilator. Blood gases show pO2 of 78, pCO2 of 36, pH of 7.47. The patient is getting saline at KVO, and Nepro at 50 cc an hour which is goal. The patient did a spontaneous breathing trial yesterday, and went about 6 hours on PSV 5, CPAP of 5. The patient's procalcitonin level was elevated at 1.92. We added back Zosyn. Yesterday we did sputum, blood, urine, and wound cultures. The patient will have another spontaneous breathing trial today. Current labs include a white count 16.3, hemoglobin 7.5, hematocrit 22.6, and a normal platelet count. Sodium 138, potassium 3.5, chlorides 105, CO2 24, BUN 125, and creatinine 3.22. Glucose is 220. Calcium is 6.9. Chest x-ray shows a right- sided pleural effusion, and some similar changes, to the previous x-ray. This is a 73-year-old white male with history of chronic abdominal pain for the last 8 months has been treated with Protonix 40 mg daily for the last 3 months with no improvement. Patient had a 22 pound weight loss in the last [address] of the abdomen and pelvis 3 weeks ago showed thickening of the antral wall with pathological adenopathy posterior to the stomach suspicious of neoplasm. Today the patient underwent elective upper endoscopy to evaluate further, patient received IV sedation by anesthesia endoscope was inserted into the mouth, esophagus was intubated without any difficulty there was evidence of large amount of liquid and solid food noted in the stomach suggestive of gastric out let obstruction. Scope could not be advanced through the pylorus, however in the prepyloric area there was a large superficial ulceration identified with multiple biopsies were done from this area. The body cardia and fundus could not adequately visualize because of large amount of retained food in the stomach. Scope was withdrawn back to the stomach and upon careful examination the mucosa of the antrum body and cardia as well as the fundus appeared normal. Procedure was being performed and biopsies were done patient threw up and subsequently became hypoxic there was clearly evidence of witnessed aspiration anesthesia intubated the patient, procedure was terminated, and the patient was transferred to the ICU, this consult was initiated. Patient is now on assist- control rate of 20 tidal volume 500 FiO2 70% PEEP of 10 ABG is pending, earlier ABG showed profound hypoxia patient is on propofol at 50 mcg/kg/min, next ABG is pending. Chest x-ray showed chronic changes without evidence of acute pulmonary disease. 12/20/2023, the patient is being seen for a follow-up. More alert and awake compared to yesterday. He is able to move his fingers and toes on today's evaluation. Following commands. Nevertheless, his J tube has been clogged and was unable to utilize the tube that has been some leaks around the tube. No abdominal distention. No nausea or emesis. Hemodynamically stable. Will undergo hemodialysis today. He remains on pressure control mode of mechanical ventilation at rate of 16, pressure of 10, +5 PEEP with an FiO2 of 30%. Chest x-ray from today is essentially unchanged with a stable cavity in his right upper lobe. White cell count of 15.7, hemoglobin 7.2, platelet count is 203, blood gas showed a pH of 7.49 with a pCO2 of 33 and pO2 of 73. BUN is 88 with a creatinine 1.89 and sodium is at 141 with a potassium level of 4.1. He is producing adequate amount of urine output. Fluid balance has been -900 cc over the past 24 hours. Normotensive. Remains on a combination of Zosyn and daptomycin. Remains on Levemir insulin 24 units daily. This is currently on hold as the patient has not been able to obtain enteral feeding. Wound VAC still in place. 12/21/2023, the patient remains on the mechanical ventilator. Overnight, the patient experienced discomfort in his abdomen and he was restless. Based on that, the patient was placed on a higher dose of Precedex which is currently running at 0.6 mcg/kg/h. The patient was also asynchronous with the mechanical ventilator and based on that, the patient was switched to an AC mode and currently is at a rate of 16, tidal volume of 400, FiO2 of 30% with a PEEP of 5. The patient is adequately sedated for now. Chest x-ray remains unchanged. Tracheostomy tube in place and the patient is having increased amount of respiratory secretions. J tube needs to be replaced today and this will be done by his general surgery as the tube remains clogged. Urine output is low order of 30 cc an hour. Afebrile. Remains on Zosyn and daptomycin. White cell count is 16.9, hemoglobin 7.4 and a platelet count of 280. Blood gas from today showed a pH of 7.46 with a pCO2 of 36 and pO2 of 82. Sodium levels of 144, BUN is 19 with a creatinine of 2.2 and a serum bicarb is at 23. The abdominal wound remains unchanged. RAYA drain is serosanguineous. 12/22/2023, patient remains on Precedex at 0.4 mcg/kg/min. Arousable. Communicates. Profoundly weak. Remains on the mechanical ventilator with a rig ht lung abscess. SIMV mode mode rate of 16, tidal volume of 400, FiO2 30% with a PEEP of 5, with a pressure support of 8. Blood gas showed a pH of 7.46 with a pCO2 of 32 and a pO2 of 82. Chest x-ray remains unchanged with a right upper lobe cavitating lesion/opacity and a suspected lung abscess. This is rated Pseudomonas and the patient remains on IV Zosyn. He remains on daptomycin. Urine output is in order of 50 cc an hour.. The J-tube was unplugged yesterday. Nevertheless, the tube itself is malfunctioning and there is drainage around the tube requiring dressing changes the dressings being soakedConstantly. The patient's white cell count is 12.3 with a hemoglobin 7.7. Sodium is at 149, BUN 91 with a creatinine of 2.3. Bicarb is at 20. Undergoing hemodialysis periodically. Last hemodialysis was on 12/21/2023. Currently NPO. Abdominal wound is clean and the patient has a wound VAC in place. RAYA drain output is serosanguineous. Patient was seen today on 12/23/2023, remains in the ICU, intubated and mechanically ventilated. Patient is on IMV with pressure support/IMV 16, pressure support of 8, tidal volume 400, PEEP of 5. Patient seems to be doing well with that kind of mode of mechanical ventilation, ABG showed a pO2 of 76 pCO2 28 pH of 7.50. I changed his rate from 16-8 kept him otherwise on the same ventilator settings. Plan to gradually go down on the IMV rate until we can get him on pressure support of 8 and CPAP. Patient is requiring Precedex at 0.4 m cg/kg/h, he is on D5W at 50 cc/h. Remains on antibiotics in the form of daptomycin and Zosyn, chest x-ray continues to show bilateral airspace disease and right upper lobe lung abscess. Continues to have a bit of a leak from his J-tube being addressed by surgery has a wound VAC, and he had a RAYA drain. Mentation arce the patient is a bit more appropriate, opens his eyes, follows very simple instructions, seems to comprehend. Patient has a left brachial PICC line, he also has a left groin hemodialysis catheter. WBC count is 10.1 hemoglobin is 7 sodium is 149 potassium 4 chloride is 121 BUN is 86 creatinine 2.31. Blood sugar is 173. Remains on enteral feeding via J-tube, a bit of a leak is noted, and surgery is to address this. Sputum cultures have grown Klebsiella and Pseudomonas and remains on proper antibiotics Patient was seen and examined today on 12/24/2023, patient remains in the ICU, and mechanically ventilated. On IMV mode of 8 pressure support of 8 tidal volume 400 FiO2 30% and PEEP of 5 ABG showed a pO2 of 81 pCO2 32 pH of 7.45. Patient remains on daptomycin and Zosyn, remains on Precedex at 0.4 mcg/kg/h intermittently receiving Dilaudid for pain. Feeding arce is presently on hold, patient had a leak around the jejunostomy tube, surgery is recommending a trick le feed or TPN if could not use the J-tube. Patient is arousable follows simple instructions, and today I had a chance to get rid of the IMV mode, and I am recommending a pressure support of 8 and CPAP. For the last few hours the patient has been tolerating this mode of mechanical ventilation, however he is not quite ready to go to [facility] at this point. Chest x-ray continues to show significant opacity in the right upper lobe and airspace disease in the right lower lobe. Previously patient had a CT of the chest showing right upper lobe abscess. Again he remains on Zosyn and daptomycin.Labs today showed WBC count of 10.6 hemoglobin 7.8 sodium is 147, patient is now on D5W at 100 cc an hour his bicarb is 19 BUN 74 creatinine 2.08, gradually improving, his last hemodialysis was on the , nephrology is considering removing his dialysis catheter in the left groin and I believe that is appropriate patient was seen and examined today on 12/25/2023, remains in the ICU, intubated and mechanically ventilated. Patient had to be placed back on assist-control mode of mechanical ventilation yesterday, mostly because he developed significant agitation and restlessness, and ongoing persistent cough with some air leak from the cough of that tracheostomy. Patient had to be sedated and he was placed on propofol and he remains on propofol at 50 mcg/kg/min. Maximal dose of Precedex yesterday could not calm him down, hence we had to transition him from pressure support/CPAP mode of mechanical ventilation to assist-control mode of mechanical ventilation and fully sedated him with propofol replacing Precedex. Today the patient is sedated, he is on assist-control rate of 16 ti sierra volume 400 FiO2 30% PEEP of 5 ABG showed a pO2 of 98 pCO2 30 pH of 7.45 chest x-ray is basically the same showing significant airspace disease in the right upper lobe and right lower lobe. Remains on daptomycin and Zosyn. His IV fluid was transitioned to D5 4 5 from D5W sodium today is 141. His urine output is about 40 to 50 cc/h, renal profile is improving with steady trending of creatinine down. Patient continues to have leakage around the jejunostomy tube. Patient is being followed by surgery no specific recommendation made except to continue the same and except the leak as it isLabs today showed WBC count of 11.5 hemoglobin 8.2 basic metabolic profile is normal BUN is 60 creatinine down to 1.81 Patient seen today on 12/26/2023, remains in the ICU intubated mechanically ventilated sedated patient is on assist-control rate of 16 tidal volume 400 FiO2 30% PEEP of 5 ABG showed a pO2 of 82 pCO2 34 pH of 7.43. Patient is now on TPN at 30 cc/h propofol at 50 mcg/kg/min hemoglobin is down to 6.8 today and he is receiving a unit of packed RBCs. His IV fluids at 50 cc/h in the form of 0.9 normal saline. He was last night on a small dose of norepinephrine at 0.01 mcg/kg/min and is presently on hold. Antibiotics arce patient is on Zosyn daptomycin and Eraxis. Chest x-ray continues to show significant airspace disease involving the right upper lobe and right lower lobe not much of a change noted on the chest x-ray. Clinically the patient is about the same, today I plan to discontinue propofol, arrange for the patient to go on Precedex, and assess mental status off sedation. If tolerated, may transition the patient again to pressure support and CPAP type of mechanical ventilation, but he is not ready to go to that transition yet. WBC count is 11.6 hemoglobin 6.8. ABG today showed a pO2 of 82 pCO2 34 pH of 7.43 potassium is 3.3 being addressed accordingly BUN is 53 creatinine 1.84 Patient was evaluated today on 12/27/2023, remains in the ICU intubated and mechanically ventilated. Patient is presently on IMV mode of mechanical ventilation with pressure support rate of 16 pressure support 14 tidal volume 400 FiO2 30% and PEEP of 5 ABG showed a pO2 of 99 pCO2 31 pH of 7.44. Intermittently the patient has been experiencing episodes of extreme agitation and restlessness he is on Precedex at 0.5 mcg/kg/h. Patient is on IV fluid 0.9 normal saline at 50 cc/h and is also receiving TPN. Remains on Eraxis daptomycin and Zosyn patient is intermittently requiring Dilaudid, Ativan does not seem to help his agitation and restlessness. But Dilaudid does hence I would recommend 0.5 mg every 2-3 hours as needed for agitation. Patient has good urine output roughly about 100 cc/h. Continues to have leakage around the jejunostomy tube, and patient is undergoing the J-tube exchange today. Family is at bedside, seems to be quite anxious about his overall condition, and I explained to the that we are doing the best we can considering his critical illness situation and critical illness polyneuropathy. Patient is profoundly weak, and weaning the patient from mechanical ventilation is almost impossible. At least not at this point yet WBC count is 10.9 hemoglobin is 8.1 basic metabolic profile is normal BUN is 46 creatinine 1.90 patient has been off hemodialysis since the . Chest x-ray continues to show stable findings with right upper lobe opacity and right lower lobe opacity and possibly a small right-sided pleural effusion Was evaluated today on 12/28/2023, patient remains in the ICU, intubated and mechanically ventilated, on IMV mode of mechanical ventilation rate set at 16 he is on pressure support of 14 tidal volume 400 FiO2 30% and PEEP of 5 ABG showed a pO2 of 113 pCO2 31 pH of 7.43. No major events overnight, patient is still requiring Precedex at 0.7 mcg/kg/h. He is on TPN as we could not use his jejunostomy tube, no jejunostomy tube was done yesterday, IV fluid is 0.9 at 50 cc/h remains on TPN at 65 cc/h patient is on Eraxis daptomycin and Zosyn. Chest x-ray is showing improvement in his right upper lobe airspace disease/lung abscess and there is a slight improvement in his right lower lobe opacity. Kathryn ent is arousable but does not follow any instructions, patient gets agitated easily if aroused and he started gagging on the tracheostomy tube. Family is at bedside, again updated on his condition. WBC count is 7.6 hemoglobin 7.9. Basic metabolic profile is normal BUN is 45 creatinine down to 1.51 patient has not had any dialysis since 12/17, his renal functioning and urine output continues to improve, hence I am strongly recommending removing his dialysis catheter Patient was seen on 12/29/2023, remains intubated and mechanically ventilated, in the ICU, on IMV of 16 tidal volume 400 FiO2 30% PEEP of 5 ABG showed a pO2 of 105 pCO2 31 pH of 7.45. Remains on Precedex at 0.8 mcg/kg/h, remains on TPN at 65 cc/h IV fluid 0.45 at 50 mL/h remains on multiple antibiotics and antifungal including Eraxis daptomycin and Zosyn. His hemodialysis catheter has been removed, urine output has been excellent renal functioning is improving chest x- ray is showing improvement in his right upper lobe airspace disease/pulmonary abscess. Right lower lobe seems about the same with chronic opacity and possibly some small right-sided pleural effusion. Family is at bedside, patient is arousable but does not follow any instructions. Gets extremely restless and agitated easily hence patient is receiving Dilaudid which seems to be working much better for this patient than benzodiazepines. And we are trying to avoid Ativan, trying to avoid any propofol as much as possible. I believe his drainage from the jejunostomy tube is becoming less and less, hence we could start considering early next week arrangement to possibly transfer the patient to a select care specialty. In the meantime I am recommending that we go down on the IMV rate by 2 every 2 hours the goal is pressure support of 14 and IMV of 8. Progress note dated December 30, 2023. This is a 73-year-old male who is now been in the hospital for 48 days. The patient was admitted back on November 11. Currently, he is seen in the intensive care unit, room 253. The patient is currently on synchronized IMV mode, rate of 8, pressure support of 14, PEEP of 5, FiO2 30%, and a backup tidal volume of 400 cc. Blood gases showed a pO2 of 87, pCO2 of 31, and a pH of 7.42. The patient will be switched back to the volume assist-control mode, as he is not ready to be weaned. His minute volume is nearly 18 L/min. He is breathing at a rate of about 40 times per minute. He currently is on Precedex 0.8 mics per kilogram per minute, TPN at 90 cc an hour, and half-normal saline at 50 cc an hour. The patient continues on Zerbaxa, Eraxis, and daptomycin. White count 11.5, hemoglobin 8.1, hematocrit 25, platelet count of 78,000. Sodium 142, potassium 4.2, chlorides 119, CO2 20, BUN 42, and creatinine 1.22. Glucose is 178. Albumin is 1.9. Sputum from December 24 shows evidence of Citrobacter freundii and Pseudomonas aeruginosa. Blood cultures from the same day were positive for Staphylococcus. Chest x-ray shows extensive pleural-parenchymal opacities, in both lungs, and the chest x-ray is largely unchanged from the pre vious days x-ray. Progress note dated December 31, 2023. 73-year-old male now here in the hospital for 49 days. The patient was admitted way back on November 11. He is seen today in room 253. Family members are at the bedside. The patient currently is on volume assist-control, rate 32, tidal volume 400, FiO2 30%, PEEP of 5. Blood gases show pO2 of 94, pCO2 of 35, pH is 7.40. Unfortunately, the patient is not synchronous with the ventilator, and so we switched to pressure regulated volume control or VC plus. We set an inspiratory time at 0.8 seconds, and the targeted tidal volume of 450 cc. The patient is on TPN at 70 cc an hour, saline at KVO, propofol at 40 mcg/kg/min. The patient continues on Eraxis, daptomycin, and Zerbaxa. Current labs include a white count 12.8, hemoglobin 7.3, hematocrit 22.4, and a platelet count of 67,000. Sodium 140, potassium 3.6, chlorides 119, CO2 20, BUN 43, creatinine 1.15. Glucose is 223. Calcium is 6.8. Today's chest x-ray is largely unc hanged. Progress note dated January 01, 2024. 73-year-old male seen again in room 253. The patient has not been in the hospital for 50 days. The patient continues on the mechanical ventilator. He is on pressure regulated volume control, or VC plus. His target tidal volume is 450 cc and his inspiratory time RTI is 0.8 seconds. His respiratory rate is 32. PEEP is 5, and FiO2 is 30%. Blood gases show pO2 of 98, pCO2 of 34, and a pH of 7.40. The patient continues on propofol at 15 mcg/kg/min, and TPN at 90 cc an hour. The patient also continues on Zerbaxa, daptomycin, and Eraxis. White count is 12.1, hemoglobin 7, hematocrit 22.0, and platelet count 69,000. Sodium 141, potassium 4.3, chlorides 120, CO2 19, BUN 44, creatinine 1.11. Calcium is 7. Chest x-ray shows a right-sided pleural effusion, with adjacent atelectasis and/or consolidation. There is a small left-sided pleural effusion as well. Progress note dated January 02, 2024. 73-year-old male seen again in room 253. The patient has not been here in the hospital for 51 days. He remains on mechanical ventilator. He is on the pressure regulated volume control modality no also noted his VC plus. The patient is on a rate of 32 breaths/min, PEEP of 5, FiO2 30%, inspiratory time her TI was 0.8, and a target tidal volume of 450 cc. Blood gases show pO2 of 90, pCO2 34, pH is 7.40. The patient is receiving TPN at 90 cc an hour, propofol at 20 mcg/kg/min, and has received a total of 6 units of packed red blood cells. The patient is going to get Dilaudid and Ativan scheduled. Dilaudid will be 1 mg every 2 hours, and Ativan 1 mg every 6 hours. The patient continues on daptomycin, Eraxis, and Zerbaxa. White count is 10, hemoglobin 6.5, hematocrit 20.3, platelet count 83,000. Sodium 140, potassium 4.6, ch lorides 119, CO2 20, BUN 45, creatinine 1.08. Most recent cultures are from December 24, showing evidence of Citrobacter from the and Pseudomonas aeruginosa, in the sputum. Blood cultures, on the same day, show evidence of Staphylococcus species. Chest x-ray shows extensive pleural-parenchymal opacities in the right hemithorax, and patchy opacity at the left lower lobe area. Progress note dated January 03, 2024. 73-year-old male seen in room 253. The patient has now been in the hospital for 52 days. He remains on mechanical ventilator, with the modality being the pressure regulated volume control modality, also known as VC plus. The patient's inspiratory time is 0.8 seconds, and his targeted tidal volume is 450 cc. Rate is 32, FiO2 30%, PEEP of 5. Blood gases show pO2 of 95, pCO2 of 34, pH of 7.41. The patient is on TPN at 90 cc an hour, propofol at 15 mcg/kg/min, saline at 10 cc an hour. Daptomycin and Eraxis have been discontinued. Zerbaxa is on day #6 of . We are going to DC the metoprolol and midodrine from the [facility]. Apparently, the patient has been denied twice, to the [facility] facility by his insurance. White count is 1.5, hemoglobin 8, macro 24.4, platelet count 78,000. Sodium 139, potassium 5.3, chlorides 119, CO2 20, BUN 44, creatinine 1.05. Glucose 192. Calcium 7.1. Magnesium 1.8. The chest x- ray today, is largely unchanged. Progress note dated January 04, 2024. 73-year-old male seen in room 253. The patient has now been in the hospital for 53 days. He remains on the mechanical ventilator. He is on pressure regulated volume control or VC plus, but the inspiratory time is 0.8 seconds, and a targeted tidal volume of 450 cc. His rate is 32, FiO2 is 30%, PEEP of 5. Blood gases show pO2 of 81, pCO2 of 35, and a pH of 7.44. He is on propofol at 10 mcg/kg/min, TPN at 90 cc an hour, and saline at 10 cc an hour. His only anti biotic currently is Zerbaxa. White count 13.4, hemoglobin 8.1, hematocrit 25, platelet count 95,000. Sodium 141, potassium 5.2, chlorides 114, CO2 23, BUN 47, creatinine 1.10. Glucose is 110. Calcium 7.4. Albumin is 1.8. Chest x- ray shows a largely unchanged evaluation. Objective - Vital Signs Vital signs: Vital Signs Temp 99.3 F 01/04/24 08:00 Pulse 99 01/04/24 10:00 Resp 32 H 01/04/24 10:00 BP 130/85 01/03/24 02:00 Pulse Ox 96 01/04/24 10:00 FiO2 30 01/04/24 10:00 Intake & Output 01/03/24 01/04/24 01/04/24 18:59 06:59 18:59 Intake Total 3499.650 9604.199 570.318 Output Total 67090 2045 582 Balance -86987.197 -771.801 -11.682 Weight 104.2 kg 100.5 kg Intake: IV 1123 1233 412 0.9 Normal Saline @ KVO 133 110 40 Ceftolozane/Tazobactam 3 100 gm In Sodium Chloride 0.9 % 100 ml @ 100 mls/hr IV Q8H [facility] Rx#:[id number] Mvi, Adult No.4 with Vit 990 360 K 10 ml Trace (Conc-1Ml/ Dose) 1 ml Potassium Acetate 36 meq In Amino Acid 5%-D15w+Lytes*E* 2, 000 ml @ 90 mls/hr IV . [id number] [facility] Rx#:[id number] Normal Saline Pressure 33 12 Saline TPN 990 Intake, IV Titration 328.803 40.199 58.318 Amount Mvi, Adult No.4 with Vit 180 K 10 ml Trace (Conc-1Ml/ Dose) 1 ml Potassium Acetate 36 meq In Amino Acid 5%-D15w+Lytes*E* 2, 000 ml @ 90 mls/hr IV . [id number] [facility] Rx#:[id number] propofoL 1,000 mg In 148.803 40.199 58.318 Empty Bag 1 bag @ 15 MCG/ KG/MIN 9.144 mls/hr IV . [id number] [facility] Rx#:[id number] TPN/PPN 100 Ceftolozane/Tazobactam 3 100 gm In Sodium Chloride 0.9 % 100 ml @ 100 mls/hr IV Q8H [facility] Rx#:[id number] Output: Drainage 21387 45 Medial Abdomen 62302 Right Abdomen 100 45 Urine 4385 2045 537 Other: Voiding Method Indwelling Catheter Indwelling Catheter ABP, PAP, CO, CI - Last Documented Arterial Blood Pressure 152/67 - Exam No acute distress, somewhat lethargic, in no acute distress, with a midline tracheostomy tube. HEENT examination is grossly unremarkable. Neck supple. Full range of motion. No adenopathy thyromegaly or neck vein distention. Midline tracheostomy tube noted. Cardiovascular examination reveals regular rhythm rate. S1-S2 normal. No S3 or S4. No discernible murmur noted. Lungs reveal mild scattered rhonchi. No wheezes or crackles. Breath sounds equal. Abdomen soft, without bowel sounds. Midline incision, there is for the most part intact, although there is some purulence noted, with some minimal dehiscence Extremities are intact. No cyanosis clubbing or edema. Skin is without rash or lesion. Neurologic examination is difficult to assess. - Labs CBC & Chem 7: 01/04/24 05:00 01/04/24 05:00 Labs: Abnormal Lab Results - Last 24 Hours (Table) 01/03/24 01/03/24 01/04/24 Range/Units 12:37 17:50 00:15 WBC (3.8-10.6) k/uL RBC (4.30-5.90) m/uL Hgb (13.0-17.5) gm/dL Hct (39.0-53.0) % RDW (11.5-15.5) % Plt Count (150-450) k/uL Neutrophils # (1.3-7.7) k/uL ABG pO2 (83-108) mmHg ABG Total CO2 (19-24) mmol/L Hemoglobin (13.0-17.5) gm/dL Potassium (3.5-5.1) mmol/L Chloride (98-107) mmol/L BUN (9-20) mg/dL Glucose (74-99) mg/dL POC Glucose (mg/dL) 150 H 152 H 169 H (70-110) mg/dL Calcium (8.4-10.2) mg/dL Total Bilirubin (0.2-1.3) mg/dL Alkaline Phosphatase (38-126) U/L Total Protein (6.3-8.2) g/dL Albumin (3.5-5.0) g/dL 01/04/24 01/04/24 01/04/24 Range/Units 05:00 05:00 05:04 WBC 13.4 H (3.8-10.6) k/uL RBC 2.71 L (4.30-5.90) m/uL Hgb 8.1 L (13.0-17.5) gm/dL Hct 25.0 L (39.0-53.0) % RDW 18.0 H (11.5-15.5) % Plt Count 95 L (150-450) k/uL Neutrophils # 8.7 H (1.3-7.7) k/uL ABG pO2 (83-108) mmHg ABG Total CO2 (19-24) mmol/L Hemoglobin (13.0-17.5) gm/dL Potassium 5.2 H (3.5-5.1) mmol/L Chloride 114 H (98-107) mmol/L BUN 47 H (9-20) mg/dL Glucose 110 H (74-99) mg/dL POC Glucose (mg/dL) 121 H (70-110) mg/dL Calcium 7.4 L (8.4-10.2) mg/dL Total Bilirubin 1.4 H (0.2-1.3) mg/dL Alkaline Phosphatase 180 H (38-126) U/L Total Protein 5.6 L (6.3-8.2) g/dL Albumin 1.8 L (3.5-5.0) g/dL 01/04/24 Range/Units 05:44 WBC (3.8-10.6) k/uL RBC (4.30-5.90) m/uL Hgb (13.0-17.5) gm/dL Hct (39.0-53.0) % RDW (11.5-15.5) % Plt Count (150-450) k/uL Neutrophils # (1.3-7.7) k/uL ABG pO2 81 L (83-108) mmHg ABG Total CO2 25 H (19-24) mmol/L Hemoglobin 7.9 L (13.0-17.5) gm/dL Potassium (3.5-5.1) mmol/L Chloride (98-107) mmol/L BUN (9-20) mg/dL Glucose (74-99) mg/dL POC Glucose (mg/dL) (70-110) mg/dL Calcium (8.4-10.2) mg/dL Total Bilirubin (0.2-1.3) mg/dL Alkaline Phosphatase (38-126) U/L Total Protein (6.3-8.2) g/dL Albumin (3.5-5.0) g/dL Assessment and Plan Assessment: Acute hypoxemic respiratory failure with failure to wean from mechanical ventilation, S/P tracheostomy/PEG tube on December 10, 2023. Respiratory failure, requiring reintubation, on November 25, 2023. Acute hypoxic respiratory failure requiring intubation/mechanical ventilation secondary to aspiration during EGD on 11/12/2023. Patient was extubated on 11/14/2023. S/P J-tube placement 11/16/2023, which continues to leak. Septic shock. Acute kidney injury secondary to sepsis, and ATN. Acute bowel obstruction, diagnosed via CT scan, November 24, 2023. Acute aspiration pneumonia. Acute aspiration during upper endoscopy most likely secondary to gastric outlet obstruction secondary to non-Hodgkin's lymphoma. Chronic abdominal pain, secondary to B-cell lymphoma. Unexplained weight loss most likely secondary non-Hodgkin's lymphoma involving the stomach. Paroxysmal atrial fibrillation. Chronic anemia. Plan: Plan dated November 21, 2023. The patient is seen today in room 517. The patient is on 3 L of oxygen. He continues on Zosyn. Continues on tube feeds. He had a CT scan of the abdomen and pelvis. His respiratory status is improved. We will continue to follow. Prognosis is guarded. Labs, x-rays, medications are reviewed. The patient is apparently scheduled for an outpatient PET scan. Plan dated November 22, 2023. The patient appears very stable. His is in the room with him. Labs, x- rays, and medications are reviewed. The patient continues on Zosyn. Resting room air saturation was 89%. Chest CT, revealed bilateral patchy and basilar infiltrates. We will continue to follow make recommendations along the way. Prognosis is guarded. The patient was diagnosed with a gastric outlet obstruction, secondary to non-Hodgkin's lymphoma. Plan dated November 23, 2023. The patient is seen today in room 517. He is resting comfortably. He continues on saline at 10 cc an hour. He is getting tube feedings with Pivot at 20 cc an hour. He has been weaned down to 2 L of oxygen. He continues on Zosyn. Labs, x-rays, and all medications are reviewed. Prognosis is guarded. We will continue to follow. Plan dated November 24, 2023. The patient will be admitted to the intensive care unit. I believe he deserves to be an ICU patient. I did speak to the surgeon. Labs, x-rays, and medications are reviewed. No additional recommendations are made. Prognosis is guarded. The patient has now been in the hospital for 12 days. We will continue to follow. He continues on Zosyn. Plan dated December 14, 2023. The patient is seen today in room 253. Currently, the patient is on the ventilator. He will have another PSV/CPAP trial. Apparently yesterday, he went for about 2-1/2 hours before he required to be placed back on the ventilator. The patient is getting saline at 10 cc an hour, and Nepro tube feedings at 50 cc an hour, which is goal. The patient had a fever, and will be recultured. In addition, the midline incision in the abdomen, shows some evidence of purulence, and will have a surgeon, take a look at that. Currently, the patient is not on any antibiotics. We will recheck a procalcitonin level. One of the family members was in the room, and was updated. Plan dated December 15, 2023. The patient actually spent about 6 hours on pressor support yesterday. The patient will have another spontaneous breathing trial today. The patient remains off of all sedation. He is getting Ativan and Dilaudid as needed. He is receiving tube feedings at goal. Labs, x-rays, and medications are reviewed. The repeat procalcitonin level was elevated at 1.92. We added Zosyn empirical ly. He had pancultures done yesterday. Labs, x-rays, and all medications are reviewed. Prognosis is guarded. An update was given to the daughter and to the right. Dictation was produced using [employer] software. Please excuse any grammatical, word or spelling errors. Plan dated December 30, 2023. The patient is seen today in room 253. The patient has now been in the hospital for 48 days. He was admitted way back on November 11. The patient currently is not ready to be weaned, given his high respiratory rate, and high minute volume. The patient is converted back to volume assist-control. In addition, the patient continues on Zerbaxa, Eraxis, and daptomycin, because of recent infections, including Pseudomonas, and Citrobacter, as well as Staphylococcus. Labs, x-rays, and medications are reviewed. The patient will continue on a small dose of propofol, Dilaudid as needed, and Ativan. Dexmedetomidine which is currently running was to be discontinued. Additional recommendations and suggestions are forthcoming. Prognosis is poor in my opinion. The patient remains a full code. The remains hopeful. Dictation was produced using [employer] software. Please excuse any grammatical, word or spelling errors. Plan dated December 31, 2023. The patient is seen today in room 253. Family members are at the bedside. After observing the patient on the ventilator, for period of time, it was clear to me, the patient was not synchronous with the ventilator. For that reason, we switched from volume assist-control, to pressure regulated volume control or VC plus. The patient had a inspiratory time of 0.8 seconds, and a targeted tidal volume of 450 cc. Everything else stayed the same. After switching, the patient's respiratory rate came down, as did his minute volume. He appeared much more comfortable. Labs, x-rays, medications are reviewed. The patient continues on Zerbaxa, Eraxis, and daptomycin. We will continue to follow. Prognosis is guarded. No additional recommendations are made. The patient is on propofol at 40 mcg/kg/min. I have asked the nurses to use both Ativan every 6 hours, and Dilaudid every 2 hours as needed, to see if we can get him on a small dose of propofol so that we can send the patient to long-term acute care f acility. Prognosis is guarded. Dictation was produced using [employer] dictation software. Please excuse any grammatical, word or spelling errors. Plan dated January 01, 2024. The patient is seen today in room 253. I had a long conversation with the patient's family yesterday. It was encouraged, by the primary service, Dr. Rowe. Dr. Rowe also talked to the family about CODE STATUS, and the possibility of a palliative care consult or hospice consultation. The patient is chronically and critically ill, but stable. The patient remains on the mechanical ventilator, and is not able to be weaned at this time. Previous attempts at weaning, has caused significant increases in respiratory rate, significant increases in minute volume, and disruptions of his vital signs. The patient continues on Zerbaxa, daptomycin, and Eraxis. The patient is on a relatively smaller dose of propofol at 15 mcg/kg/min. I have encouraged the nurse to wean that down even further. In addition to propofol, the patient is receiving Ativan, and Dilaudid as needed. Labs, x-rays, medications are reviewe d. The patient could be considered for possible discharge to long-term acute care facility or select specialty. Plan dated January 02, 2024. I have ongoing discussions with the family. The patient is doing very poorly in my opinion, and is currently not weanable. The patient, could be transferred to a long-term acute care facility or specialized nursing facility. We are attempting to get his propofol dose down to a reasonable level. I did asked the nurses to make sure that the patient got his Dilaudid, and Ativan, as scheduled medications. The patient blood gases are excellent. pO2 is 90, pCO2 is 34, pH is 7.40. The patient remains on pressure regulated volume control modality of v entilation. Labs, x-rays, and all medications are reviewed. The patient is overall prognosis remains poor. The patient remains a full code patient. I did have a long talk with the patient's just a few days ago. Plan dated January 03, 2024. The patient is seen again in room 253. The , and one of the family members at the bedside. The patient continues on mechanical ventilation, and at this time, cannot be weaned. The patient is getting TPN at 90 cc an hour, propofol at 15 mcg/kg/min. The patient is receiving saline at 10 cc an hour. We were in contact with the infectious disease doctor. Daptomycin and Eraxis were discontinued. The patient is on day #6 of 10, on Zerbaxa. Metoprolol and midodrine were discontinued from the [facility]. The patient's insurance denied transfer to a long-term acute care facility twice now. Labs, x-rays, medications are reviewed. The patient is overall prognosis is very poor. Today's peak airway pressure is 19 cm of water. The Plateau pressure is 11 cm of water. We will continue to follow the patient, make recommendations along the way. I have had ongoing discussions with the patient's . Plan dated January 04, 2024. The patient is seen in room 253. The and daughter are in the room with the patient. She apparently did call [facility] yesterday, to see if they would except her . They apparently said that they had no beds, and did not currently except him. The patient continues on the mechanical v entilator. The patient's antibiotics have been pared down, to only Zerbaxa for another 3 to 4 days. The patient is down to propofol at 10 mcg/kg/min, TPN at 90 cc an hour, and saline at 10 cc an hour. The patient remains on VC plus modality of ventilation. Blood gases show pO2 of 81, pCO2 of 35, pH is 7.44. Labs, x-rays, medications are reviewed. Prognosis is guarded. We will continue to follow. Time with Patient: Greater than 30
--- NOTE | 2024-01-04 11:22 | P.PN ---
Progress Note - Text Progress Note Date: 01/04/24 CHIEF COMPLAINT: Abdominal pain HISTORY OF PRESENT ILLNESS: No acute events overnight. Patient remains in the ICU on mechanical ventilation. Has tracheostomy. Patient with positional cuff leak from the tracheostomy. Patient is holding his volumes. With sedation is tolerating ventilator. Patient continues to have leaking from the J-tube. J- tube is currently to drainage and has bilious output. Tube feeds are on hold. He has TPN for nutrition support. PHYSICAL EXAM: VITAL SIGNS: Reviewed. GENERAL: no acute distress. HEENT: Tracheostomy site clean dry and intact ABDOMEN: Soft. Nondistended. Midline incision with wound VAC in place and intact. J-tube with drainage around site. ASSESSMENT: 1. 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 Status post J-tube placement and revision for small bowel obstruction 2. Abdominal wound dehiscence status post wound VAC placement 3. Status post tracheostomy PLAN: -At this time no plan to exchange J-tube -Dulcolax added for constipation -Keep J-tube to drainage -Continue to hold tube feeds -Continue wound VAC to be changed Saturday/Saturday/Saturday -Continue TPN for nutrition support -Continue Triad barrier cream around J-tube -Overall prognosis is poor. Insurance denied transfer to detention care facility again. Dick Ewing DO [facility] [phone]
[2024-01-04 11:35] LABS: Glucose,Whole Blood 165 mg/dL (70-110)
--- NOTE | 2024-01-04 11:53 | P.PN ---
Subjective Progress Note Date: 01/04/24 Patient is seen in follow-up for acute kidney injury. Patient underwent exploratory laparotomy with small bowel obstruction NG tube replacement November 25, 2023. Nonoliguric. Started on hemodialysis November 29, 2023. Currently off of dialysis as renal function has recovered. Last dialysis on 12/18/2023. Dialysis catheter has been removed. Renal function continues to improve. Tube feeds currently held. Receiving TPN. Vital signs stable. General: Resting in bed. HEENT: Tracheostomy noted. LUNGS: Scattered rhonchi. HEART: Regular rate and rhythm. ABDOMEN: No drainage. EXTREMITITES: 1+ edema. Objective - Vital Signs Vital signs: Vital Signs Temp 99.3 F 01/04/24 08:00 Pulse 93 01/04/24 08:00 Resp 32 H 01/04/24 08:00 BP 130/85 01/03/24 02:00 Pulse Ox 96 01/04/24 08:00 FiO2 30 01/04/24 08:00 Intake & Output 01/03/24 01/04/24 01/04/24 18:59 06:59 18:59 Intake Total 4906.925 2452.199 206 Output Total 88497 2045 280 Balance -46115.197 -771.801 -74 Weight 104.2 kg 100.5 kg Intake: IV 1123 1233 206 0.9 Normal Saline @ KVO 133 110 20 Ceftolozane/Tazobactam 3 100 gm In Sodium Chloride 0.9 % 100 ml @ 100 mls/hr IV Q8H [facility] Rx#:[id number] Mvi, Adult No.4 with Vit 990 180 K 10 ml Trace (Conc-1Ml/ Dose) 1 ml Potassium Acetate 36 meq In Amino Acid 5%-D15w+Lytes*E* 2, 000 ml @ 90 mls/hr IV . [id number] [facility] Rx#:[id number] Normal Saline Pressure 33 6 Saline TPN 990 Intake, IV Titration 328.803 40.199 Amount Mvi, Adult No.4 with Vit 180 K 10 ml Trace (Conc-1Ml/ Dose) 1 ml Potassium Acetate 36 meq In Amino Acid 5%-D15w+Lytes*E* 2, 000 ml @ 90 mls/hr IV . [id number] [facility] Rx#:[id number] propofoL 1,000 mg In 148.803 40.199 Empty Bag 1 bag @ 15 MCG/ KG/MIN 9.144 mls/hr IV . [id number] [facility] Rx#:[id number] Output: Drainage 89411 45 Medial Abdomen 55568 Right Abdomen 100 45 Urine 4385 2045 235 Other: Voiding Method Indwelling Catheter Indwelling Catheter ABP, PAP, CO, CI - Last Documented Arterial Blood Pressure 144/67 - Labs CBC & Chem 7: 01/04/24 05:00 01/04/24 05:00 Labs: Abnormal Lab Results - Last 24 Hours (Table) 01/03/24 01/03/24 01/04/24 Range/Units 12:37 17:50 00:15 WBC (3.8-10.6) k/uL RBC (4.30-5.90) m/uL Hgb (13.0-17.5) gm/dL Hct (39.0-53.0) % RDW (11.5-15.5) % Plt Count (150-450) k/uL Neutrophils # (1.3-7.7) k/uL ABG pO2 (83-108) mmHg ABG Total CO2 (19-24) mmol/L Hemoglobin (13.0-17.5) gm/dL Potassium (3.5-5.1) mmol/L Chloride (98-107) mmol/L BUN (9-20) mg/dL Glucose (74-99) mg/dL POC Glucose (mg/dL) 150 H 152 H 169 H (70-110) mg/dL Calcium (8.4-10.2) mg/dL Total Bilirubin (0.2-1.3) mg/dL Alkaline Phosphatase (38-126) U/L Total Protein (6.3-8.2) g/dL Albumin (3.5-5.0) g/dL 01/04/24 01/04/24 01/04/24 Range/Units 05:00 05:00 05:04 WBC 13.4 H (3.8-10.6) k/uL RBC 2.71 L (4.30-5.90) m/uL Hgb 8.1 L (13.0-17.5) gm/dL Hct 25.0 L (39.0-53.0) % RDW 18.0 H (11.5-15.5) % Plt Count 95 L (150-450) k/uL Neutrophils # 8.7 H (1.3-7.7) k/uL ABG pO2 (83-108) mmHg ABG Total CO2 (19-24) mmol/L Hemoglobin (13.0-17.5) gm/dL Potassium 5.2 H (3.5-5.1) mmol/L Chloride 114 H (98-107) mmol/L BUN 47 H (9-20) mg/dL Glucose 110 H (74-99) mg/dL POC Glucose (mg/dL) 121 H (70-110) mg/dL Calcium 7.4 L (8.4-10.2) mg/dL Total Bilirubin 1.4 H (0.2-1.3) mg/dL Alkaline Phosphatase 180 H (38-126) U/L Total Protein 5.6 L (6.3-8.2) g/dL Albumin 1.8 L (3.5-5.0) g/dL 01/04/24 Range/Units 05:44 WBC (3.8-10.6) k/uL RBC (4.30-5.90) m/uL Hgb (13.0-17.5) gm/dL Hct (39.0-53.0) % RDW (11.5-15.5) % Plt Count (150-450) k/uL Neutrophils # (1.3-7.7) k/uL ABG pO2 81 L (83-108) mmHg ABG Total CO2 25 H (19-24) mmol/L Hemoglobin 7.9 L (13.0-17.5) gm/dL Potassium (3.5-5.1) mmol/L Chloride (98-107) mmol/L BUN (9-20) mg/dL Glucose (74-99) mg/dL POC Glucose (mg/dL) (70-110) mg/dL Calcium (8.4-10.2) mg/dL Total Bilirubin (0.2-1.3) mg/dL Alkaline Phosphatase (38-126) U/L Total Protein (6.3-8.2) g/dL Albumin (3.5-5.0) g/dL Assessment and Plan Assessment: 1. Acute kidney injury secondary to ATN secondary to septic shock. Creatinine 0.86 on admission and up to 5.38 dated November 29, 2023. nonoliguric. UA fairly benign. No hydronephrosis noted on imaging. Started hemodialysis on 11/29/2023 for worsening volume status and acute kidney injury. Renal function has improved and dialysis catheter was discontinued on 12/28/2023 2. Perforated small bowel status post exploratory laparotomy with abdominal washout, small bowel resection and J-tube replacement November 25, 2023. 3. A-fib with RVR. s/p amiodarone drip. 4. Recently diagnosed gastric B-cell lymphoma. 5. Septic shock. 6. Hypokalemia status post replacement. Potassium is elevated today at 5.3 and TPN has been adjusted. 7. Hypophosphatemia, being supplemented in TPN. 9. Hypernatremia, status post D5W and improved. Plan: IV Lasix as needed Repeat labs in a.m. and continue to adjust TPN as needed to reduce potassium. Overall prognosis is guarded
[2024-01-04] MEDS ORDERED: NYSTATIN 100,000 UNIT/ML SUSP 500,000 UNIT/5 ML CUP PO SCH (13:00)
--- NOTE | 2024-01-04 13:06 | P.PN ---
Subjective Progress Note Date: 01/04/24 Principal diagnosis: Reason for follow-up is pneumonia and bacteremia Patient is 73-year-old with male initial presentation to the hospital on 11/11/2021 for after the patient did have aspiration while undergoing elective endoscopy, diagnosed with a non-Hodgkin of, subsequently did have explained laparotomy for perforated small bowel abdominal washout and feeding jejunostomy tube patient did require dialysis catheter placement for dialysis during this hospital stay and tracheostomy for respiratory failure, infectious was consulted for fever. On today's evaluation that is 01/04/2024, Patient did have a low-grade fever of 99.4 axillary at noon patient remains to be intubated on the vent through the trach FiO2 is currently stable at 30% he is hemodynamically stable not requiring any pressor support no other changes has been reported. Patient white count is slightly up to 13.4 creatinine is 1.10 Objective - Vital Signs Vital signs: Vital Signs Temp 99.3 F 01/04/24 08:00 Pulse 99 01/04/24 10:00 Resp 32 H 01/04/24 10:00 BP 130/85 01/03/24 02:00 Pulse Ox 96 01/04/24 10:00 FiO2 30 01/04/24 10:00 Intake & Output 01/03/24 01/04/24 01/04/24 18:59 06:59 18:59 Intake Total 5728.769 5369.199 570.318 Output Total 52141 2045 582 Balance -49112.197 -771.801 -11.682 Weight 104.2 kg 100.5 kg Intake: IV 1123 1233 412 0.9 Normal Saline @ KVO 133 110 40 Ceftolozane/Tazobactam 3 100 gm In Sodium Chloride 0.9 % 100 ml @ 100 mls/hr IV Q8H [facility] Rx#:[id number] Mvi, Adult No.4 with Vit 990 360 K 10 ml Trace (Conc-1Ml/ Dose) 1 ml Potassium Acetate 36 meq In Amino Acid 5%-D15w+Lytes*E* 2, 000 ml @ 90 mls/hr IV . [id number] [facility] Rx#:[id number] Normal Saline Pressure 33 12 Saline TPN 990 Intake, IV Titration 328.803 40.199 58.318 Amount Mvi, Adult No.4 with Vit 180 K 10 ml Trace (Conc-1Ml/ Dose) 1 ml Potassium Acetate 36 meq In Amino Acid 5%-D15w+Lytes*E* 2, 000 ml @ 90 mls/hr IV . [id number] [facility] Rx#:[id number] propofoL 1,000 mg In 148.803 40.199 58.318 Empty Bag 1 bag @ 15 MCG/ KG/MIN 9.144 mls/hr IV . [id number] [facility] Rx#:[id number] TPN/PPN 100 Ceftolozane/Tazobactam 3 100 gm In Sodium Chloride 0.9 % 100 ml @ 100 mls/hr IV Q8H [facility] Rx#:[id number] Output: Drainage 29865 45 Medial Abdomen 95903 Right Abdomen 100 45 Urine 4385 2045 537 Other: Voiding Method Indwelling Catheter Indwelling Catheter ABP, PAP, CO, CI - Last Documented Arterial Blood Pressure 152/67 - Exam GENERAL DESCRIPTION: An elderly male lying in bed in no distress RESPIRATORY SYSTEM: Unlabored breathing , decreased breath sounds at bases HEART: S1 S2 regular rate and rhythm , ABDOMEN: Soft , no tenderness EXTREMITIES: No edema feet - Labs CBC & Chem 7: 01/04/24 05:00 01/04/24 05:00 Labs: Abnormal Lab Results - Last 24 Hours (Table) 01/03/24 01/03/24 01/04/24 Range/Units 12:37 17:50 00:15 WBC (3.8-10.6) k/uL RBC (4.30-5.90) m/uL Hgb (13.0-17.5) gm/dL Hct (39.0-53.0) % RDW (11.5-15.5) % Plt Count (150-450) k/uL Neutrophils # (1.3-7.7) k/uL ABG pO2 (83-108) mmHg ABG Total CO2 (19-24) mmol/L Hemoglobin (13.0-17.5) gm/dL Potassium (3.5-5.1) mmol/L Chloride (98-107) mmol/L BUN (9-20) mg/dL Glucose (74-99) mg/dL POC Glucose (mg/dL) 150 H 152 H 169 H (70-110) mg/dL Calcium (8.4-10.2) mg/dL Total Bilirubin (0.2-1.3) mg/dL Alkaline Phosphatase (38-126) U/L Total Protein (6.3-8.2) g/dL Albumin (3.5-5.0) g/dL 01/04/24 01/04/24 01/04/24 Range/Units 05:00 05:00 05:04 WBC 13.4 H (3.8-10.6) k/uL RBC 2.71 L (4.30-5.90) m/uL Hgb 8.1 L (13.0-17.5) gm/dL Hct 25.0 L (39.0-53.0) % RDW 18.0 H (11.5-15.5) % Plt Count 95 L (150-450) k/uL Neutrophils # 8.7 H (1.3-7.7) k/uL ABG pO2 (83-108) mmHg ABG Total CO2 (19-24) mmol/L Hemoglobin (13.0-17.5) gm/dL Potassium 5.2 H (3.5-5.1) mmol/L Chloride 114 H (98-107) mmol/L BUN 47 H (9-20) mg/dL Glucose 110 H (74-99) mg/dL POC Glucose (mg/dL) 121 H (70-110) mg/dL Calcium 7.4 L (8.4-10.2) mg/dL Total Bilirubin 1.4 H (0.2-1.3) mg/dL Alkaline Phosphatase 180 H (38-126) U/L Total Protein 5.6 L (6.3-8.2) g/dL Albumin 1.8 L (3.5-5.0) g/dL 01/04/24 Range/Units 05:44 WBC (3.8-10.6) k/uL RBC (4.30-5.90) m/uL Hgb (13.0-17.5) gm/dL Hct (39.0-53.0) % RDW (11.5-15.5) % Plt Count (150-450) k/uL Neutrophils # (1.3-7.7) k/uL ABG pO2 81 L (83-108) mmHg ABG Total CO2 25 H (19-24) mmol/L Hemoglobin 7.9 L (13.0-17.5) gm/dL Potassium (3.5-5.1) mmol/L Chloride (98-107) mmol/L BUN (9-20) mg/dL Glucose (74-99) mg/dL POC Glucose (mg/dL) (70-110) mg/dL Calcium (8.4-10.2) mg/dL Total Bilirubin (0.2-1.3) mg/dL Alkaline Phosphatase (38-126) U/L Total Protein (6.3-8.2) g/dL Albumin (3.5-5.0) g/dL Assessment and Plan (1) Sepsis Current Visit: Yes Status: Acute Code(s): A41.9 - SEPSIS, UNSPECIFIED ORGANISM SNOMED Code(s): 83290602 (2) Pneumonia Current Visit: Yes Status: Acute Code(s): J18.9 - PNEUMONIA, UNSPECIFIED ORGANISM SNOMED Code(s): 643340531 (3) Bacteremia Current Visit: Yes Status: Acute Code(s): R78.81 - BACTEREMIA SNOMED Code(s): 3689179 Plan: 1patient with pneumonia with a sputum showing Citrobacter and Pseudomonas aeruginosa, the patient sputum repeat is still growing Citrobacter and Pseudomonas sensitive to the Pseudomonas that is a drug-resistant and resistant to Zosyn, patient is currently on Zerbaxa day number 6 out of 10 2-patient did have a positive blood culture with staph epi that was oxacillin resistant as the patient did have a PICC line and the dialysis catheter with concern for a line related infection with a suspected line removed repeat blood culture has been negative and the patient has received adequate daptomycin therapy daptomycin will be discontinued 3-patient also have significant excoriation around his jejunostomy tube site which is still leaking local care with Triad cream 4the patient also have elevated white count and the patient has been on TPN and significant excoriation around his jejunostomy tube site concerning for fungal infection so far blood culture has been negative for any resistant pathogen and received a 10-day course of Eraxis which was subsequent discontinued on 01/03/2024 5patient did have a low-grade fever white count slightly up and will monitor closely if any temperature above 100.4 F or any further worsening of the white count will reculture and adjust antibiotic if needed at the bedside questions were answered Dictation was produced using dragon dictation software. please excuse any grammatical, word or spelling errors. Time with Patient: Less than 30
--- NOTE | 2024-01-04 13:38 | P.PN ---
Progress Note - Text Progress Note Date: 01/04/24 Chief Complaint: On the ventilator This is a 73-year-old patient, follows with Dr. Patricia Deal. Patient was seen this morning in the ICU. Patient's and daughter at the bedside. History obtained predominantly by the . Patient been having trouble with his stomach symptoms for close to 8 months. Patient underwent EGD by Dr. Sahara Cheng yesterday. Patient was found to have ulcerated around the antrum and obstruction to the pylorus. A lot of retained food was found. Patient aspirated. Had to be intubated and brought to the ICU. On a Levophed drip. FiO2 50 and a PEEP of 6. Patient had been losing weight lost about 25 pounds. Previously has a history of mitral valve prolapse. November 13: ICU. Patient remains on Precedex drip and propofol drip. Did not do well attempted extubation yesterday. Patient been off Levophed. NG tube to suction. Spoke to patient's and son at the bedside. Biopsy results awaited. Hemoglobin dropped to 6.9 this morning. Get a unit of blood. November 14: ICU. Up in a chair. Extubated yesterday. NG tube to suction. at the bedside. 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 Oncology was consulted. They have ordered a port. Results discussed with Dr. Sahara Cheng. General surgery was consulted for J-tube placement. Discussed with at the bedside. Patient getting IV fluids, IV Zosyn,. Patient has been on IV amiodarone for A-fib-back in sinus rhythm. Multiple PACs. Did receive unit of blood yesterday. Also IV ferric gluconate. November 15: ICU. Patient earlier today underwent jejunostomy tube placement and a port placement. Patient awake. Answering questions. NG tube to suction present. Updated patient's . Patient remains on IV amiodarone and IV Zosyn. November 16: ICU. Up in the chair. NG tube present but not to suction. Trickle feeding through the jejunostomy tube should be started today. Dietitian has been on board. IV Zosyn to continue. Patient's and his sister at the bedside. Discussed. Also spoke with Dr. Serna. Given patient has no other predisposing cardiac factors for the A-fib except acute illness. His LV function is normal. Left atrium is normal. He has already been loaded with IV amiodarone. Will switch him to oral Lopressor 12.5 twice daily. Hence will DC amiodarone. Patient yesterday had wheezing was put on bronchodilators steroids per pulmonary. November 17: Propped up in bed. NG tube was discontinued. Sinus rhythm. Remains NPO. Getting G-tube feeding at 40 cc an hour. Dietitian following. Get arrangements done for DC home tomorrow including tube feeding. Increase activity discussed with patient and elder daughter at the bedside. Still requiring oxygen. Incentive spirometry. November 18: Patient up in recliner. Earlier today spoke to adoption social worker David. Informed patient is rather weak and will be going to the [facility]. Looking at authorization. Denae came to the room and spoke to patient his and his daughter. They are very keen to take the patient home as 3 daughters all nurses and they will take care of him at home. Patient earlier today to abdominal cramping and some loose stools.'s tube feeding was held. Told the nurse to start back at the rate of 40 cc an hour. He was before the getting it at 55 cc an hour. Incentive spirometry was again emphasized. Patient remains on 4 L of oxygen. November 19: I saw the patient this morning. Hence I am in the evening. Morning was sitting with his sons. Has some edema. Lungs had crackles I gave him 40 mg of Lasix. He did make good urine. Tube feeding was held from the p revious evening of because of abdominal cramping. Acute abdominal series showed nonspecific bowel gas pattern and SBO to be ruled out. Family and patient was updated. Told him discharge will depend on day by day. Later this afternoon CT scanAnd abdomen pelvis done. Showed small bowel to be 3 point centimeter dilated. Some anasarca. Gastric findings. Gallstones. Later spoke to Dr. Irby from general surgery. They will further review and decide about further plan of action. Will give further dose of IV Lasix because of fluid overload from likely hypoalbuminemia and IV fluids previously received. Patient may take his pills by mouth. Total time spent today about 1 hour with over 40 minutes of discussion. Patient did state his breathing is better after Lasix this morning. November 20: Saw the patient this morning. was present. Patient received 2 more doses of Lasix. Diuresed well. Breathing much better. Lungs are sounding better. Discussed with Dr. Zepeda other surgeon. He is taking 3 cc out of the balloon and the gastrostomy tube. Started trickle feeding at 5 cc an hour. Will see how this does. Later in the day ran into the and the daughter again. Did update them on the same. Dilaudid was discontinued yesterday but morphine was ordered by surgery for patient having pain. Concerns about GI issues with that we will DC the morphine. As family does not want the same. November 21: Patient reclining bed. Tired. Several family members at the bedside. Including his and eldest daughter. Patient started on trickle feed yesterday at 5 cc an hour. This morning he has been on 10 cc an hour. Still having some loose stools. C. difficile was ordered. Patient on 2 L of nasal cannula. Has diuresed well. Will give an additional dose of Lasix today. If C. difficile is negative and the diarrhea is from the tube feedings we may have to use a fecal management system to keep him comfortable. Otherwise patient remains NPO. Dietitian is following the patient. Care was discussed length with patient the and daughter at the bedside. Questions answered. Liquid Tylenol has been added for abdominal pain. Avoid narcotics. Elevated white count likely from Solu-Medrol 11/23/2023--patient was feeling better today. Multiple family member at bedside. No issues overnight. Normal saline at 10 cc an hour, tube feeding at 20 cc an hour, remains on Zosyn, on 3 L oxygen. Afebrile. Heart rate 62, respiratory rate 16, blood pressure 114/67, saturating 91% on 3 L. WBCs 14.5, 9.7 hemoglobin. Platelet 242. BMP is unremarkable. Pulmonary and general surgery following. General surgery recommended to continue tube feeds at 20 cc/h. 11/24/2023--patient reported significant abdominal discomfort, also noted to have leak around G-tube. General surgery is following, evaluated the patient at bedside, adjusted tube feeds. Also reported having diarrhea, on 2 L oxygen, went up to 5 L. Blood pressure was low, 500 mL fluid bolus with close monitoring of respiratory status ordered. Currently on DuoNebs, Solu-Medrol, will continue Zosyn. Chest x-ray showed a left lower lobe infiltrate. Abdominal x-ray showed multiple air-fluid levels. CT abdomen showed multiple dilated small bowel loops, consistent with obstruction, pneumoperitoneum, cholelithiasis and ascites. WBCs 14.1, platelet 255, hemoglobin 8.9. NG tube in place. Family at bedside. patient transferred to SICU for close monitoring. 11/25/23--patient is currently in the ICU, required Levophed overnight due to low blood pressure, low urine output with creatinine trending up. Nephrology following. Biostatistics Professor also following. Patient remains n.p.o., NG tube in place, following NG tube insertion patient had total of 2 L output, J-tube was draining approximately 200 cc over last 8 hours, continues to have abdominal pain and abdominal tenderness. Patient on IV fluids. Currently on 4 L oxygen. WBCs 8.2, hemoglobin 12.3, platelet 188. Chest x-ray earlier today showed right sided port and a stable left lung airspace disease, NG tube in place. Patient currently on Zosyn, on IV Dilaudid for pain control, on IV Solu-Medrol. General surgery planning for OR today, started on TPN. 11/26/23--patient was seen and examined today. Patient is currently sedated, intubated on mechanical ventilation. Family at bedside. Patient underwent ex lap, abdominal washout, small bowel resection with new feeding jejunostomy tube placement yesterday, small bowel was noted to be perforated with significant contamination of abdominal cavity. Patient is currently on vancomycin and Zosyn. Creatinine went up to 2.85, nephrology following, recommended to continue IV fluids, avoid nephrotoxin Preserved EF on echocardiogram.. Patient currently on Levophed, vasopressin in the ICU for close monitoring. Patient is afebrile, heart rate 122, blood pressure 129/76, currently on mechanical ventilation, sedated. November 26: ICU. Intubated. FiO2 60 and a PEEP of 5. Drips include IV amiodarone. Heart rate was up early did get fired microgram of IV digoxin and 2.5 mg of IV Lopressor. Did drop her blood pressure bit. Urine output was low. Received 80 mg of IV Lasix. Ahmet to 150 cc. Other drips include IV propofol, vasopressin, Levophed. TPN was started yesterday. Antibiotics include IV Zosyn and vancomycin. Patient has a J-tube to drainage to gravity. Spoke to patient's younger daughter and at the bedside. Prognosis guarded. Continue current treatment plan. Chest x-ray shows right lower lobe consolidation. Small pleural effusion. November 27: ICU. Intubated. FiO2 55 and a PEEP of 5. Antibiotics include IV vancomycin. Drips include Levophed at a small dose, IV vasopressin, propofol, amiodarone. Patient converted to sinus rhythm this morning. Getting TPN and normal saline at 75 cc an hour. Urine output about 25 cc an hour. RAYA drain put out about 260 cc last 12 hours that is last night nurse. NG tube with bilious output. And also GI J-tube output to gravity. Spoke to patient's and daughter at the bedside. They understand patient still not out of the kee. Platelets have dropped-therefore probably Zosyn stopped. November 28: ICU. Intubated. FiO2 55 and a PEEP of 5. Patient is in sinus rhythm. Seen this morning. Due for dialysis catheter this afternoon. Urine output about 15 to 20 cc an hour. Patient is on IV Lasix 80 mg every 12. Saline is KVO. Drips include IV propofol vasopressin. Patient having significant output through the RAYA drain and the jejunostomy tube to drainage. Creatinine had been getting worse. Patient's at the bedside. Understands patient's remains critically ill. Hemoglobin is down to 7. Given that patient's pain hypotensive, and on vasopressin we will give a unit of blood with dialysis. Getting TPN antibiotic changed to IV meropenem November 29: ICU. Intubated. FiO2 55 and a PEEP of 5. Remains in sinus rhythm. Getting TPN. Dialyzed yesterday and this morning. About 1000 cc removed. Urine output about 50 cc an hour. Patient is on IV propofol. Off vasopressin. Still having significant output through the RAYA drain and jejunostomy tube. Patient received a second unit of blood yesterday. Patient's and daughter at the bedside. I did discuss guarded prognosis. Did asked them to revisit CODE STATUS.. Getting IV meropenem. November 30: ICU. Intubated. Did get a sedation holiday t today. Back on propofol. Getting TPN. Still getting IV Lasix. Fair urine output. Jejunostomy tube in last 8 hours was about 30 cc output. RAYA drain in the 8 hours had about 180 cc output. Telemetry shows sinus rhythm. NG tube has low intermittent suction with negative output. On the vent with FiO2 40 and a PEEP of 5. No hemodialysis today. Discussed with the and eldest daughter at the bedside. IV meropenem-patient's sputum had grown Citrobacter freundii and Pseudomonas aeruginosa. December 01: ICU. Intubated. Jejunostomy tube to gravity. Only 10 cc output in last 24 hours. RAYA drain. About 190 cc last 6 hours. Nasogastric tube to low intermittent suction. Minimal output. Patient is on a small dose of propofol 5 mics. Telemetry shows sinus rhythm. Patient started on small dose of Cleviprex this morning. Blood pressure. Getting TPN. FiO2 35 and PEEP of 5. Discussed with the at the bedside. Hemodialysis today December 02: ICU. Patient remains intubated. FiO2 35 PEEP of 5. Patient is on IV propofol. IV Cleviprex was discontinued yesterday. Also remains on TPN. Telemetry shows sinus rhythm. NG tube is good no output. Still significant output through the RAYA drain. Jejunostomy tube has minimal output. Patient had hemodialysis today 2 L of fluid was removed. Oral half liters yesterday. Patient getting a sedation holiday. General Surgery started the patient on trickle feeding at 10 cc an hour. I did speak to patient's at the bedside. Prognosis remains guarded but there is some improvement. December 03: ICU. Intubated. FiO2 35 PEEP of 5. Drips include IV propofol and Precedex. Getting TPN. Telemetry shows sinus rhythm. Remains on IV Lasix 80 mg twice a day. IV meropenem. Because patient gets easily agitated when transitioning off propofol he has been switched over to Precedex. For hemodialysis today. December 04: ICU. Intubated. FiO2 35 and a PEEP of 5. Patient been taken off propofol is on Precedex. Telemetry sinus rhythm. J-tube with minimal output. RAYA drain with decreased output. NG tube to suction minimal output. Family wanted to hold off trickle feeding until cleared by oncology. Which he did today. Trickle feeding will be started today. Spoke to patient's and one of the daughters at the bedside. Dr. Russ is spoken to the earlier this point they want to do further tracheostomy tube. October 4: ICU. Intubated. FiO2 35 PEEP of 5. Patient remains on Precedex and PPN. Patient's dialysis catheter was not functioning is getting another [address] Bobby this afternoon. Remains on IV meropenem. Has a RAYA drain in the jejunostomy tube to gravity. NG tube to low intermittent suction. No family at the bedside. December 06: ICU. Intubated. FiO2 35 PEEP of 5. RAYA drain putting out about approximately 120 cc per shift. Patient on IV Precedex. FiO2 35 PEEP of 5. Telemetry-sinus rhythm. Patient occasionally been put on small dose of Levophed specially for hemodialysis getting it today. Also started on midodrine for low blood pressure. Tolerating tube feeding at 10 cc an hour. Also had a bowel movement. Mentation has not improved. Even with sedation holiday. Neurology consulted. CT brain shows no acute process. December 07: ICU. Intubated. FiO2 35 PEEP of 5. Telemetry-sinus rhythm. NG tube to suction low intermittent minimal output. Getting TPN. Tube feeding at 20 cc an hour. RAYA drain averaging over 100 cc per shift. Remains on Precedex. EEG was done today. Discussed with at the bedside. Family is currently not inclined for tracheostomy tube today. Day 13 of being intubated December 08: ICU. Intubated. FiO2 35 PEEP of 5. Patient is put on back on propofol per cook chill technician Dr. JIMENEZ. EEG did show some potential for spikes was put on Keppra by neurology. Telemetry shows sinus rhythm. NG tube to suction with no output. Tube feeding was put on hold because of questionable discharge on the site. Being restarted today. RAYA drain is 150 cc last 12-hour shift. Patient does open eyes. Family has decided to proceed with tracheostomy and surgery has been consulted for the same. Spoke to the at the bedside. For hemodialysis today. December 09: ICU. Intubated FiO2 35 PEEP of 5. Patient seen this morning. Pending tracheostomy placement this afternoon. Remains NPO. G-tube feeding was held overnight. RAYA drain putting out about 100 cc per shift. Received a unit of blood for hemoglobin of 6.6. On 25 mics of propofol. Getting TPN and meropenem. Spoke to the at the bedside. Patient became hypotensive with dialysis yesterday. Levophed had to be given. Only 800 cc were removed yesterday. No hemodialysis today. December 10: ICU . FiO2 35, PEEP 5. Tracheostomy was done yesterday by Dr. Ewing. G-tube feeding was started today at 10 cc an hour. Dietitian following. RAYA drain 12-hour shift overnight put out about 30 cc. Patient hemodialysis today about 1 L removed. Patient has a sacral stage II decub with a dressing. On propofol 20 mics. Spoke to at the bedside. TPN. Meropenem was discontinued yesterday. December 11: ICU. FiO2 35 PEEP of 5. Tracheostomy. NG tube was discontinued. No hemodialysis today. Telemetry shows sinus rhythm. J-tube feeding at 40 cc an hour. TPN was discontinued. Patient has been off propofol also. PICC line in place. Patient had a EEG done today. Spoke to patient's elder daughter at the bedside. May open eyes occasionally. Not really following commands December 12: 73-year-old white male with history of chronic abdominal pain for the last 8 months has been treated with Protonix 40 mg daily for the last 3 months with no improvement. Patient had a 22 pound weight loss in the last [address] of the abdomen and pelvis 3 weeks ago showed thickening of the antral wall with pathological adenopathy posterior to the stomach suspicious of neoplasm. Today the patient underwent elective upper endoscopy to evaluate further, patient received IV sedation by anesthesia endoscope was inserted into the mouth, esophagus was intubated without any difficulty there was evidence of large amount of liquid and solid food noted in the stomach suggestive of gastric outlet obstruction. Scope could not be advanced through the pylorus, however in the prepyloric area there was a large superficial ulceration identified with multiple biopsies were done from this area. The body cardia and fundus could not adequately visualize because of large amount of retained food in the s tomach. Scope was withdrawn back to the stomach and upon careful examination the mucosa of the antrum body and cardia as well as the fundus appeared normal. Procedure was being performed and biopsies were done patient threw up and subsequently became hypoxic there was clearly evidence of witnessed aspiration anesthesia intubated the patient, procedure was terminated, and the patient was transferred to the ICU, this consult was initiated. Patient is now on assist- control rate of 20 tidal volume 500 FiO2 70% PEEP of 10 ABG is pending, earlier ABG showed profound hypoxia patient is on propofol at 50 mcg/kg/min, next ABG is pending. Chest x-ray showed chronic changes without evidence of acute pulmonary disease. 12/14/2023 Patient remains in the ICU, generally weak Patient s/p tracheostomy G-tube in place Patient still has fever and mild tachycardia but tachycardia is improving, leukocytosis improving as well. Hemoglobin 8.1. Creatinine 3.0 and nephrology team on the case. He has mild transaminitis. He was getting Zosyn which is held now, nowCalcitonin is pending 12/14 Patient shon in the ICU, he is still encephalopathic and does not follow command. Neurology service following closely. He is status post tracheostomy. Also J-tube His abdomen looks soft and on exam he has mild coarse secretions. Has a Abarca catheter with clear urine His pro- Calcitonin is still high but trending down 3.0 down to 1.9 No fever this morning WBC slightly less at 16.3 Patient currently off antibiotic He is getting steroids IV Solu-Medrol which might contribute to his leukocytosis. Also he is on IV Keppra by neurologist 12/14 Patient remains confused in the ICU calm, he had a good night per family member and staff. Tracheostomy in place Patient has occasional coughing spells, patient also developed some partial wound dehiscence in his abdomen, surgery team are aware and are going to evaluate the patient Patient also has positive blood culture from 12/13: Gram-positive cocci in clusters. Patient received one-time dose of IV vancomycin. Patient also had fever 2 days ago, leukocytosis and total elevated pro- Calcitonin. Therefore we are going to consult infectious disease team. As his antibiotic Zosyn was stopped few days ago. Currently patient KVO He has good urine output December 16: ICU. Trach. Congested. Requiring suctioning. No hemodialysis today. Getting G-tube feeding at 50 cc an hour. FiO2 30 and a PEEP of 5. On IV Precedex. Eyes open. Does follow commands. Weakness in the limbs. Spoke to at the bedside. Sputum positive for Klebsiella oxytoca and Pseudomonas aeruginosa. December 17: ICU. On trach. Currently cough with increased secretions requiring suctioning. Adding scopolamine patch. Very much clear secretion. CT scan is showing right upper lobe lung abscess. G-tube feeding at 50 cc an hour. Hemodialysis today. RAYA drain putting out about 140 cc a shift. Serous. Has been midline incision wound dehiscence. Wound VAC was placed on it. Stage II ulcer. Patient is on Precedex drip 0.15 mics. Urine output is good about 6200 cc an hour. Spoke to the at the bedside. Patient currently not stable for transfer to LTAC. No limb movements. PT OT on the case. otherwise awake does follow simple commands by face December 18: ICU. Patient seen this afternoon. Because of pain getting IV Dilaudid. No nasal cannula on room air. Does move about his head. Telemetry shows sinus rhythm. FiO2 30 and a PEEP of 5. Patient started on scopolamine patch yesterday has decreased secretions today. Good urine output. Tube feeding at 60 cc an hour. Wound VAC on incisional would be high since in place. RAYA drain continues to make output. No hemodialysis today December 19: ICU. Patient was seen earlier today. FiO2 30 and a PEEP of 5. Sinus rhythm. Awake. Does follow with eyes. Tube feeding got obstructed tube feedings held for now. Increasing oozing from the incision drainage site. at the bedside. Wound VAC remains in place. Good urine output. Dialysis held today. December 20: ICU. Per nephrology no dialysis today. 1 L fluid bolus given. J- tube was replaced over the wire by Dr. Ewing from surgery. On Precedex 0.6 mcg. FiO2 30 and a PEEP of 5 on the vent. RAYA drain putting out of around 100 cc per shift. at the bedside. Drainage through the abdominal incision wound. CT scan abdomen showed tube placement in the small bowel. Stable large right lower quadrant mass with a fluid level. December 21: ICU. No dialysis today. Patient started on trickle feeding through the J-tube yesterday. He started leaking around the J-tube site. Tube feeding was held. Dressings were placed. Wound VAC remains on the incision. Still having output through the RAYA drain. Patient remains on Precedex 0.4 mcg. FiO2 30 and a PEEP of 5. Sinus rhythm. at the bedside. December 22: ICU. Patient was seen this morning today by me. No dialysis today. Patient's and daughter at the bedside. FiO2 30 and a PEEP of 5. Sinus rhythm. Still having significant secretions through the tracheostomy tube. On Precedex 0.4 mcg. Getting D5W IV fluids. Tube feeding remains to be on hold since yesterday. Still output of RAYA drain. Awaiting input from surgery. Discussed with the and daughter. December 23: ICU. Saw the patient this afternoon. Because of good output of urine dialysis has been discontinued. Telemetry shows sinus rhythm. FiO2 30 and a PEEP of 5. RAYA output has been around 8200 cc an hour. Good urine output. Patient does have very slight movement of the limbs. Wound VAC is putting out about 20 cc per shift. Yesterday when trickle feeding was started patient's J- tube drainage also started leaking around the insertion site. Tube feeding was held. Patient remains on IV Zosyn and Precedex at 0.3 mcg. I had a very lengthy discussion with patient's daughter and at the bedside overall guarded prognosis. Later surgery spoke to the family, and then the nurse called me that family was wanting transferred to [facility]. I spoke to Dr. Irby. They felt they could not offer anything more at this point. I did call the [facility] transfer child care team lead. Gave them the reason for transfer. Later in the ICU nurse informed me through [employer] that [facility] had declined the transfer. Total time spent today about 50 minutes with over 30 minutes of discussion. December 24: ICU. Patient is doing not too well. Sinus rhythm. Drips include norepinephrine and IV propofol. Surgery did put 2 stitches around the J-tube insertion site. Started on TPN today. FiO2 30 PEEP of 5. Patient became hypothermic put on a Manjit hugger. Also hypoglycemic. Decreased urine output. IV fluids increased. Patient's son was at the bedside. I did speak to patient's eldest daughter outside in the waiting room. Did tell the patient doing very poorly. I did try to call the on the phone number she has gone home. Started an IV antifungal today. December 26, 2023 73-year-old white male with history of chronic abdominal pain for the last 8 months has been treated with Protonix 40 mg daily for the last 3 months with no improvement. Patient had a 22 pound weight loss in the last [address] of the abdomen and pelvis 3 weeks ago showed thickening of the antral wall with pathological adenopathy posterior to the stomach suspicious of neoplasm. Today the patient underwent elective upper endoscopy to evaluate further, patient received IV sedation by anesthesia endoscope was inserted into the mouth, esophagus was intubated without any difficulty there was evidence of large amount of liquid and solid food noted in the stomach suggestive of gastric outlet obstruction. Scope could not be advanced through the pylorus, however in the prepyloric area there was a large superficial ulceration identified with multiple biopsies were done from this area. The body cardia and fundus could not adequately visualize because of large amount of retained food in the stomach. Scope was withdrawn back to the stomach and upon careful examination the mucosa of the antrum body and cardia as well as the fundus appeared normal. Procedure was being performed and biopsies were done patient threw up and subsequently became hypoxic there was clearly evidence of witnessed aspiration anesthesia intubated the patient, procedure was terminated, and the patient was transferred to the ICU, this consult was initiated. Patient is now on assist- control rate of 20 tidal volume 500 FiO2 70% PEEP of 10 ABG is pending, earlier ABG showed profound hypoxia patient is on propofol at 50 mcg/kg/min, next ABG is pending. Chest x-ray showed chronic changes without evidence of acute pulmonary disease. 12/27/2023 Patient is seen and evaluated with family at bedside; remains in the ICU intubated and mechanically ventilated. - ABG showed a pO2 of 99 pCO2 31 pH of 7.44. -- Remains on Eraxis daptomycin and Zosyn patient is intermittently requiring Dilaudid, Ativan does not seem to help his agitation and restlessness. -- Continues to have leakage around the jejunostomy tube, and patient is undergoing the J-tube exchange today. Family is at bedside, seems to be quite anxious about his overall condition, and I explained to the that we are doing the best we can considering his critical illness situation and critical illness polyneuropathy. Patient is profoundly weak, and weaning the patient from mechanical ventilation is almost impossible. At least not at this point yet WBC count is 10.9 hemoglobin is 8.1 basic metabolic profile is normal BUN is 46 creatinine 1.90 patient has been off hemodialysis since the . Chest x- ray continues to show stable findings with right upper lobe opacity and right lower lobe opacity and possibly a small right-sided pleural effusion ----Continue ventilatory support, now on IMV mode rate of 16 with pressure support of 14 Continue Precedex and use Dilaudid 0.5 mg every 2-3 hours as needed. Nutritional support patient is now on TPN, Possible J-tube changed today for J- tube malfunction Continue antibiotics including daptomycin and Zosyn, Eraxis was added by infectious disease 12/28/2023 the patient is seen and evaluated in room at bedside; continues to be afebrile, the patient is on the ventilator through the trach FiO2 is currently stable at 30% no significant pleural effusion clinically patient on requiring any pressor support still having drainage around his jejunostomy tube patient dialysis catheter has been discontinued. Patient white count normalized to 7.6, creatinine is 1.51 patient with pneumonia with a sputum showing Citrobacter and Pseudomonas aeruginosa, the patient sputum repeat is still growing Citrobacter and Pseudomonas sensitive to the Pseudomonas is pending continue with Zosyn -patient did have a positive blood culture with staph epi that was oxacillin resistant as the patient did have a PICC line and the dialysis catheter he is on daptomycin repeat blood culture currently growing oxacillin sensitive staph epi, the patient dialysis catheter has been discontinued Has been sent for the culture -patient also have significant excoriation around his jejunostomy tube site which is still leaking Eraxis was added which will be continued as the patient fever pattern has improved and the patient white count has normalized once again discussed with the nursing staff to apply Triad cream which was discussed yesterday but not applied and monitor clinical course closely 12/29/2023 Patient is seen and evaluated with family members at bedside; remains intubated and mechanically ventilated -- ABG showed a pO2 of 105 pCO2 31 pH of 7.45. Remains on Precedex; multiple antibiotics and antifungal including Eraxis daptomycin and Zosyn. -- chest x-ray is showing improvement in his right upper lobe airspace disease/pulmonary abscess. Right lower lobe seems about the same with chronic opacity and possibly some small right-sided pleural effusion. --Family is at bedside, patient is arousable but does not follow any instructions. Gets extremely restless and agitated easily hence patient is receiving Dilaudid which seems to be working much better for this patient than benzodiazepines --possibly transfer the patient to a select care specialty. 12/30/2023 Evaluated in follow-up in the intensive care unit. He remains on the mechanical ventilator. Status post tracheostomy. There has been a decrease in the amount of leakage around the J-tube site he continues on a gravity flow. TPN is infusing tube feedings remain on hold at this time. No bowel movement reported for the last 5 days. X-ray today reveals extensive pleural parenchymal opacities throughout the right with at least a moderate pleural effusion. Mild patchy densities left mid and lower lung are also similar. Blood work reveals a white blood cell count 11.5, hemoglobin 8.1, platelet count of 78, sodium 142, potassium 4.2, BUN of 42, creatinine of 1.22, Phos of 2.3, magnesium 1.9. Patient continues on IV anidulafungin IV Zerbaxa IV daptomycin. Patient is currently sedated with propofol and also Precedex which is currently on hold at this time. December 31, 2023: ICU. Patient continues to do poorly. On propofol 35 mics. Also getting IV Dilaudid and IV Ativan.. Telemetry shows sinus rhythm. J-tube feeding has been discontinued. Significant output through the Abarca bag and around the G-tube site. Patient also putting out through the RAYA drain on the right side. Getting TPN and lipids. Patient is antimicrobial include iv aniedulefungin, IV ceftolozane/tazobactam, IV daptomycin Advance care planning [October 31, 2023] I met with patient's at the bedside. Went through in detail with patient is overall very poor clinical status. Chances of any meaningful recovery next to minimal. I also did mention that patient in my opinion was not stable to go to chronic ventilator setting. I suggested comfort care/hospice. I did not feel and why all honesty that patient is benefiting any further from the treatment we are giving him in fact causing probably more suffering. I also spoke to patient's daughter outside in the waiting room. Total time spent about 50 minutes with over 30 minutes of discussion. Later I called Dr. Luther JIMENEZ the cook chill technician after he received a text that family was expressing that some physician expressed he was doing better and giving hope. I spoke to nurse Lemos in the evening and she and Dr. JIMENEZ did go and talk to patient's family at the bedside later. January 01, 2024: ICU. FiO2 30 and a PEEP of 5. Continues to have increased drainage at the G-tube site. Wound VAC in place over the incision. RAYA drain continues to put out excretions. Good urine output. Drips include IV propofol at 20 mics, also getting IV Ativan and Dilaudid. Patient also keeping getting TPN lipids. Spoke to the patient's at the bedside. No further questions. I did speak to Dr. Irby from general surgery. Hence it is both our impression again that changing the tube will not make any difference to the bigger picture. And probably futile. Dr. Irby will be speaking to the family today. David from adoption social worker did ask about of family meeting. I did reiterate that I spoken at length to the a few times and also the daughter. Dr. Jimenez also spoke to the and Dr. Irby will be speaking with the today. Prognosis remains to be very poor. I did tell the in my opinion probably the patient is not r a candidate for long-term facility. Will cook chill technician Dr. Jimenez determine if the patient is a candidate for long-term chronic ventilator facility. January 02, 2024: ICU. FiO2 30 PEEP of 5. Telemetry sinus rhythm. Drips include propofol at 20 mics. Patient getting TPN lipids. Receiving 1 unit of packed red blood cell. Patient was having a breakdown around the tracheostomy stoma site. With a cuff leak. G-tube site is continues to have increasing output. Wound VAC in place. ARYA drains also having increasing output. Patient sister and daughter from [place] from out of town. Earlier they spoke at length with Dr. alford from general surgery. Prognosis remains poor. January 03, 2024: ICU. FiO2 30 PEEP of 5. On propofol. 50 mics. Getting TPN lipids. Sinus rhythm. Wound VAC in place. Drainage around the j-tube site. RAYA drain continues to drain. Patient somewhat sedated. at the bedside. Later adoption social worker David inform me that the surgical team Dr. Irby has suggested possible you have [facility], to which family is trying to obtain transferred to. Per Dr. Jimenez note patient has been decline by long-term care twice. Prognosis remains poor. at the bedside. Had no questions. Brother Nathan is present. January 04, 2024: ICU. FiO2 30 PEEP of 5. Propofol was held this morning. Getting TPN lipids. Sinus rhythm. Wound VAC remains in place. Continues to have drainage around the J-tube. RAYA drain continues to have output. at the bedside. She had no questions. Antibiotics in place. Active Medications Albuterol/Ipratropium (Ipratropium-Albuterol 3 Ml Neb) 3 ml INHALATION RT-QID [facility] Last Admin: 01/04/24 12:00 Dose: 3 ml Albuterol/Ipratropium (Ipratropium-Albuterol 3 Ml Neb) 3 ml INHALATION RT-Q2H PRN PRN Reason: Shortness Of Breath Or Wheezing Last Admin: 12/03/23 03:45 Dose: 3 ml Bisacodyl (Bisacodyl 10 Mg Supp) 10 mg RECTAL DAILY [facility] Last Admin: 01/04/24 10:55 Dose: 10 mg Chlorhexidine Gluconate (Chlorhexidine Gluconate 15 Ml Cup) 15 ml MUCOUS MEM BID [facility] Last Admin: 01/04/24 09:29 Dose: 15 ml Darbepoetin Scooby (Darbepoetin Scooby 40 Mcg/0.4 Ml Syringe) 40 mcg SQ Q7D [facility] Last Admin: 12/31/23 14:23 Dose: 40 mcg Dextrose/Water (Dextrose 50% Syringe 50 Ml) 25 ml IVP PER PROTOCOL PRN; Protocol PRN Reason: Hypoglycemia Last Admin: 01/03/24 06:18 Dose: 25 ml Dextrose/Water (Dextrose 50% Syringe 50 Ml) 50 ml IVP PER PROTOCOL PRN; Protocol PRN Reason: Hypoglycemia Last Admin: 12/25/23 18:03 Dose: 50 ml Hydromorphone HCl (Hydromorphone 2 Mg/Ml 1 Ml Syringe) 1 mg IVP Q2H [facility] Last Admin: 01/04/24 12:27 Dose: 1 mg Propofol 1,000 mg/ IV Solution 100 mls @ 9.144 mls/hr IV .[id number] [facility]; Protocol Last Titration: 01/04/24 09:09 Dose: 0 mcg/kg/min, 0 mls/hr Ceftolozane/Tazobactam 3 gm/ (Sodium Chloride) 100 mls @ 100 mls/hr IV Q8H [facility]; Protocol Stop: 01/07/24 23:59 Last Admin: 01/04/24 09:27 Dose: 100 mls/hr Parenteral Vitamin Supplement 10 ml/ Zinc/Copper/Manganese/Selenium 1 ml/ Sodium Acetate 30 meq/ Magnesium Sulfate 1 gm / Calcium Gluconate 1 gm/Amino Acids/Dextrose 2,038 mls @ 90 mls/hr IV .[id number] [facility] Last Admin: 01/04/24 05:15 Dose: 90 mls/hr Fat Emulsion Intravenous 250 (ml/ IV Solution) 250 mls @ 21 mls/hr IV TuThSa [facility] Last Admin: 01/04/24 09:16 Dose: 21 mls/hr Insulin Aspart (Insulin Aspart (Novolog) 100 Unit/Ml Vial) 0 unit SQ 0000,0600,1200,1800 [facility]; Protocol Last Admin: 01/04/24 12:13 Dose: 2 unit Levetiracetam (Levetiracetam Iv 500 Mg/5 Ml Vial) 250 mg IVP Q24HR [facility] Last Admin: 01/04/24 09:28 Dose: 250 mg Lorazepam (Lorazepam 2 Mg/Ml Inj) 1 mg IV Q6HR [facility] Last Admin: 01/04/24 12:27 Dose: 1 mg Miscellaneous Information (Magnesium Replacement Protocol 1 Each Misc) 1 each MISCELLANE DAILY PRN; Protocol PRN Reason: Per Protocol Miscellaneous Information (Potassium Replacement Protocol 1 Each Misc) 1 each MISCELLANE DAILY PRN; Protocol PRN Reason: Per Protocol Multi-Ingred Cream/Lotion/Oil/Oint (Hydrophilic Cream 180 Gm Tube) 1 applic TOPICAL BID NIRMAL; Protocol Last Admin: 01/04/24 09:29 Dose: 1 applic Multi-Ingredient Ointment (Zinc Oxide 20% Oint 28.4 Gm Tube) 1 applic TOPICAL BID PRN; Protocol PRN Reason: Skin Irritation Naloxone HCl (Naloxone 0.4 Mg/Ml 1 Ml Vial) 0.2 mg IV Q2M PRN PRN Reason: Opioid Reversal Pantoprazole Sodium (Pantoprazole 40 Mg/10 Ml Vial) 40 mg IVP BID [facility] Last Admin: 01/04/24 09:29 Dose: 40 mg Petrolatum (Zinc Oxide Paste (Z-Guard) 1 Applic) 1 applic TOPICAL BID NIRMAL; Protocol Last Admin: 01/04/24 09:29 Dose: 1 applic Past medical history to include: GERD Social history: . No smoking. Physical examination: VITAL SIGNS: 99.4, 101, 29, 155 x 68, 96% on the vent GENERAL: Sedated. Left groin dialysis catheter. Right chest wall port. Getting TPN and lipids EYES: Pupils equal. Conjunctiva edouard l. HEENT: External appearance of nose and ears normal, tracheostomy-. NECK: JVD unable to assess; masses not palpable. HEART: First and second heart sounds are normal; edema, present LUNGS: Respiratory rate increased, decreased breath sounds ABDOMEN: Soft, some tenderness. Liver spleen not palpable, no masses palpable..jejunostomy tube-dressing in place, soaked. RAYA drain. Incision with stitches with - wound VAC PSYCH: Unable to assess NEURO: Patient sedated INVESTIGATIONS, reviewed in the clinical context: January 03: White count 13.4 hemoglobin 8.1 platelets 95 potassium 5.2 creatinine 1.1 albumin 1.8 January 02: White 11.5 hemoglobin 8 platelets 78 potassium 5.3 creatinine 1.05 January 01: White count 10 hemoglobin 6.5 platelets 83 potassium 4.6 creatinine 1.08 December 31: White count 12.1 hemoglobin 7 platelets 69 sodium 141 potassium 4.3 creatinine 1.11 iron 13 TIBC 105% saturation 12.3 ferritin 642 Sputum culture [December 24] Citrobacter freundii, Pseudomonas aeruginosa Blood culture [December 24] Staphylococcus pettenkoferi December 30: White count 12.8 hemoglobin 7.3 platelets 67 sodium 140 potassium 3.6 creatinine 1.15 December 24: White count 1.5 hemoglobin 8.2 platelets 106 potassium 3.8 BUN [address] chest abdomen without contrast [December 16] right upper lung cavitary lesion with air-fluid level in the posterior aspect and a larger cavitary lesion possibly within the lung parenchyma itself. Extending down towards the diaphragm additional airspace opacities in the left lung base. December 09: White count 26.1 hemoglobin 8.6 platelets 154 potassium 4.1 BUN 86 creatinine 3.31. Hemoglobin this morning was 6.6 prior to transfusion EEG-evidence of generalized cerebral dysfunction and sporadic intermittent higher amplitude sharply contoured waves mainly bifrontal. Showing cortical irritability. 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 Serosal fibrous adhesions. Viable margins. Sputum culture: [November 25]: Citrobacter freundii. Pseudomonas aeruginosa November 20: White count 14.4 hemoglobin 8.8 platelets 229 potassium 4.1 BUN [address] scan abdomen [November 19] possible small bowel obstruction Stool: C. difficile negative November 15: WBC 13 hemoglobin 7.7 platelets 248 potassium 4.3 creatinine 0.87 2D echo: EF 55 to 60%. Kidneys bladder: Unremarkable November 13: White count 12 hemoglobin 6.9 platelets 276 potassium 4.4 creatinine 1.21 magnesium 1.8 iron 6 TIBC 365% saturation 1.64 transferrin 261 ferritin 34.6 B12 569 folate 4.4 November 11: Creatinine 0.86 EGD: Large amount of retained solid liquid food noted in the stomach. Large superficial gastric antral ulceration involving most of the antrum extending into the pylorus causing pyloric stenosis. Biopsies were obtained. Chest x-ray film personally reviewed by me-scattered infiltrates Assessment plan: -Aspiration pneumonia a bilateral initially from retained gastric contents mostly food and liquids, causing acute hypoxic respiratory failure: On presentation: Subsequent bacterial pneumonia sputum culture November 25: Citrobacter freundii, Pseudomonas aeruginosa. December 13: Klebsiella oxytoca, Pseudomonas aeruginosa IV meropenem-was received originally. Also received IV Zosyn. Currently receiving:iv aniedulefungin, IV ceftolozane/tazobactam, IV daptomycin -Breakdown of tracheostomy stoma site. Being followed by cook chill technician -Sepsis with septicemia from above Antibiotics -Probable lung abscess larger 1 on the right side-patient cultures are growing Pseudomonas and Klebsiella oxytoca , daptomycin, other antibiotics -Acute pulmonary edema and fluid overload from hypoalbuminemic state and fluids from IV.:: Has been getting Lasix and dialysis: Both held -Altered mentation. Possibly encephalopathy. Could be delirium.: Not improving CT brain [December 06] nothing acute Neurology following EEG-evidence of generalized cerebral dysfunction and sporadic intermittent higher amplitude sharply contoured waves mainly bifrontal. Showing cortical irritability. Keppra was started on December 07 -Critical care poly- Pedro neuropathy: Slow to respond PT OT -Gallstones, asymptomatic -Small l bowel perforation at site of jejunostomy tube tip with balloon..: Portion of small bowel resected. On November 24. New J-tube was placed.- drainage to gravity:-Now discontinued December 19: J-tube blocked. J-tube replaced on December 20 over wire December 21: Leaking around the J-tube site. Feeding held December 23: J feeding was started yesterday evening but again started leaking increasingly around the J-tube site-feeding held again December 24: J-tube feeding has been held. Patient is currently having increased drainage from the J-tube site -Acute kidney injury. Possible ATN from hypotensive shock: Slow to respond Renal ultrasound unremarkable. Started on renal replacement therapy on November 28. Followed by nephrology-dialysis has been discontinued -Nutrition Jejunostomy tube placed November [address] Ewing Received TPN-this was discontinued. TPN lipids restarted on December 24 -Midline abdominal incision wound dehiscence Wound VAC placed -Acute recurrent atrial fibrillation-converted to sinus rhythm Received IV amiodarone. Cardiology following Lopressor -Acute hypoxic respiratory failure from aspiration pneumonia, status post ventilator assisted: Reintubated November 25. FiO2 35 PEEP of 5 Tracheostomy tube-by Dr. Zepeda on December 09 -Septic shock, recovered -Hypertension Patient started on Cleviprex-discontinued -Intermittent hypotension: Corrected Intermittent use of Levophed. 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 Also anemia of blood draw. Iron deficiency anemia Received total of 6 units of blood IV iron. -Severe thrombocytopenia. Would consider coagulation disorder secondary to infection., In the setting of underlying lymphoma.: Fluctuating with infection Hematology following. 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 difficile ruled out. -Large superficial gastric antral ulceration involving the gastric antrum extending into the pylorus with gastric outlet obstruction. 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 Port placed. For outpatient PET scan. -Full code at the bedside. Had no questions. Prognosis remains not good. Past Medical History Past Medical History: GERD/Reflux History of Any Multi-Drug Resistant Organisms: None Reported Past Surgical History: Heart Catheterization Additional Past Surgical History / Comment(s): colonsocopy,spinal injection, Past Anesthesia/Blood Transfusion Reactions: No Reported Reaction Past Psychological History: No Psychological Hx Reported Smoking Status: Never smoker Past Alcohol Use History: None Reported Past Drug Use History: None Reported
[2024-01-04 17:41] LABS: Glucose,Whole Blood 157 mg/dL (70-110)
[2024-01-04 17:43] LABS: Phosphorus 3.5 mg/dL (2.5-4.5)
[2024-01-05 00:17] LABS: Glucose,Whole Blood 156 mg/dL (70-110)
[2024-01-05] MEDS: [UNRECOGNIZED DRUG - REMARK] IV SCH (04:38)
[2024-01-05 05:02] LABS: Glucose,Whole Blood 121 mg/dL (70-110)
[2024-01-05 05:18] LABS: Anisocytosis Slight; Basophils # (A) 0.1 k/uL (0-0.2); Basophils % (A) 0 %; Eosinophils # (A) 0.1 k/uL (0-0.7); Eosinophils % (A) 1 %; HCT 23.4 % (39.0-53.0); HGB 7.6 gm/dL (13.0-17.5); Hypochromasia Slight; Lymphocytes # (A) 3.1 k/uL (1.0-4.8); Lymphocytes % (A) 28 %; MCH 29.7 pg (25.0-35.0); MCHC 32.5 g/dL (31.0-37.0); MCV 91.4 fL (80.0-100.0); Mean Platelet Volume 9.8; Monocytes # (A) 0.5 k/uL (0-1.0); Monocytes % (A) 4 %; Neutrophils # (A) 7.4 k/uL (1.3-7.7); Neutrophils % (A) 66 %; Platelet Count 100 k/uL (150-450); RBC 2.56 m/uL (4.30-5.90); RDW 18.2 % (11.5-15.5); WBC 11.3 k/uL (3.8-10.6)
[2024-01-05 05:32] LABS: ALT 28 U/L (4-49); AST 32 U/L (17-59); African American GFR (CKD) 80 (>60 ml/min/1.73 sqM); Albumin 1.9 g/dL (3.5-5.0); Alkaline Phosphatase 210 U/L (38-126); Anion Gap 1 mmol/L; Blood Urea Nitrogen 46 mg/dL (9-20); Calcium 7.3 mg/dL (8.4-10.2); Carbon Dioxide 21 mmol/L (22-30); Chloride 116 mmol/L (98-107); Glucose 118 mg/dL (74-99); Magnesium 1.6 mg/dL (1.6-2.3); Non-African American GFR(CKD) 70 (>60 ml/min/1.73 sqM); Phosphorus 2.8 mg/dL (2.5-4.5); Potassium 3.9 mmol/L (3.5-5.1); Sodium 138 mmol/L (137-145); Total Bilirubin 1.4 mg/dL (0.2-1.3); Total Protein 5.8 g/dL (6.3-8.2)
[2024-01-05] MEDS ORDERED: Potassium Replacement Protocol 1 EACH MISC MISCELLANE PRN (05:55)
[2024-01-05] MEDS ORDERED: Magnesium Replacement Protocol 1 EACH MISC MISCELLANE PRN (05:55)
[2024-01-05 06:08] LABS: ABG Base Excess -1.5 mmol/L; ABG HCO3 23 mmol/L (21-25); ABG Oxygen Saturation 98.3 % (94-97); ABG PCO2 35 mmHg (35-45); ABG PH 7.42 (7.35-7.45); ABG PO2 98 mmHg (83-108); ABG TCO2 24 mmol/L (19-24); Allen Test Performed? Yes
[2024-01-05] MEDS: MAGNESIUM SULFATE-D5W PMX 1 GM in DEXTROSE/WATER 1 100ML.BAG IVPB SCH (06:24)
[2024-01-05] MEDS: POTASSIUM CHLORIDE 10 MEQ in WATER FOR INJECTION 1 100ML.BAG IVPB SCH (06:24)
--- NOTE | 2024-01-05 07:09 | XR ---
EXAMINATION TYPE: XR chest 1V portable DATE OF EXAM: 01/05/2024 5:08 AM COMPARISON: Chest radiograph from one day prior. CLINICAL INDICATION: Male, 73 years old with history of vented; [facility] TECHNIQUE: XR chest 1V portable Frontal view of the chest. FINDINGS: Lungs/Pleura: Blunting of the right costophrenic angle. Scattered airspace opacities. There is no evidence of pleural effusion, focal consolidation, or pneumothorax. Pulmonary vascularity: Unremarkable. Heart/mediastinum: Cardiomediastinal silhouette is unremarkable. Musculoskeletal: No acute osseous pathology. Other findings: None Lines/Tubes: Tracheostomy cannula tip projecting over the trachea. Right central venous catheter with distal tip at the cavoatrial junction. Left-sided PICC with distal tip at the superior vena cava/brachiocephalic confluence. IMPRESSION: Stable exam given differences in technique with multifocal airspace opacities with small moderate ple ural effusion. [facility], , 01/05/2024 7:07 AM
--- NOTE | 2024-01-05 10:49 | P.PN ---
Subjective Progress Note Date: 01/05/24 Patient is seen in follow-up for acute kidney injury. Patient underwent exploratory laparotomy with small bowel obstruction NG tube replacement November 25, 2023. Nonoliguric. Started on hemodialysis November 29, 2023. Currently off of dialysis as renal function has recovered. Last dialysis on 12/18/2023. Dialysis catheter has been removed. Renal function continues to improve. Receiving TPN. Vital signs stable. General: Resting in bed. HEENT: Tracheostomy noted. LUNGS: Scattered rhonchi. HEART: Regular rate and rhythm. ABDOMEN: No drainage. EXTREMITITES: 1+ edema. Objective - Vital Signs Vital signs: Vital Signs Temp 98.6 F 01/05/24 08:00 Pulse 90 01/05/24 08:00 Resp 32 H 01/05/24 08:00 BP 130/85 01/03/24 02:00 Pulse Ox 96 01/05/24 08:00 FiO2 30 01/05/24 08:00 Intake & Output 01/04/24 01/05/24 01/05/24 19:59 06:59 18:59 Intake Total 506 Output Total 220 Balance 286 Weight Intake: IV 26 0.9 Normal Saline @ KVO 20 Ceftolozane/Tazobactam 3 gm In Sodium Chloride 0.9 % 100 ml @ 100 mls/hr IV Q8H [facility] Rx#:[id number] Fat Emulsion 20% 250 ml In Empty Bag 1 bag @ 21 mls/hr IV TuThSa [facility] Rx#: [id number] Mvi, Adult No.4 with Vit K 10 ml Trace (Conc-1Ml/ Dose) 1 ml Potassium Acetate 36 meq In Amino Acid 5%-D15w+Lytes*E* 2, 000 ml @ 90 mls/hr IV . [id number] [facility] Rx#:[id number] Normal Saline Pressure 6 Saline Intake, IV Titration 300 Amount Magnesium Sulfate-D5w Pmx 100 1 gm In Dextrose/Water 1 100ml.bag @ 100 mls/hr IVPB Q1H [facility] Rx#: [id number] Potassium Chloride 10 meq 200 In Water For Injection 1 100ml.bag @ 100 mls/hr IVPB Q1H [facility] Rx#: [id number] propofoL 1,000 mg In Empty Bag 1 bag @ 15 MCG/ KG/MIN 9.144 mls/hr IV . [id number] [facility] Rx#:[id number] TPN/PPN 180 Ceftolozane/Tazobactam 3 gm In Sodium Chloride 0.9 % 100 ml @ 100 mls/hr IV Q8H [facility] Rx#:[id number] Mvi, Adult No.4 with Vit 180 K 10 ml Trace (Conc-1Ml/ Dose) 1 ml Sodium Acetate 22 meq Magnesium Sulfate gm 1 gm Calcium Gluconate 1 gm Sodium Phosphate 6 mmol In Amino Acid 5%-D15w 2,000 ml @ 90 mls/hr IV .[id number] [facility] Rx#:[id number] Output: Drainage 40 Medial Abdomen Right Abdomen 40 Urine 180 Other: Voiding Method # Bowel Movements ABP, PAP, CO, CI - Last Documented Arterial Blood Pressure 152/66 - Labs CBC & Chem 7: 01/05/24 05:00 01/05/24 05:00 Labs: Abnormal Lab Results - Last 24 Hours (Table) 01/04/24 01/04/24 01/05/24 Range/Units 11:34 17:40 00:16 WBC (3.8-10.6) k/uL RBC (4.30-5.90) m/uL Hgb (13.0-17.5) gm/dL Hct (39.0-53.0) % RDW (11.5-15.5) % Plt Count (150-450) k/uL ABG O2 Saturation (94-97) % Hemoglobin (13.0-17.5) gm/dL Chloride (98-107) mmol/L Carbon Dioxide (22-30) mmol/L BUN (9-20) mg/dL Glucose (74-99) mg/dL POC Glucose (mg/dL) 165 H 157 H 156 H (70-110) mg/dL Calcium (8.4-10.2) mg/dL Total Bilirubin (0.2-1.3) mg/dL Alkaline Phosphatase (38-126) U/L Total Protein (6.3-8.2) g/dL Albumin (3.5-5.0) g/dL 01/05/24 01/05/24 01/05/24 Range/Units 05:00 05:00 05:00 WBC 11.3 H (3.8-10.6) k/uL RBC 2.56 L (4.30-5.90) m/uL Hgb 7.6 L (13.0-17.5) gm/dL Hct 23.4 L (39.0-53.0) % RDW 18.2 H (11.5-15.5) % Plt Count 100 L (150-450) k/uL ABG O2 Saturation (94-97) % Hemoglobin (13.0-17.5) gm/dL Chloride 116 H (98-107) mmol/L Carbon Dioxide 21 L (22-30) mmol/L BUN 46 H (9-20) mg/dL Glucose 118 H (74-99) mg/dL POC Glucose (mg/dL) 121 H (70-110) mg/dL Calcium 7.3 L (8.4-10.2) mg/dL Total Bilirubin 1.4 H (0.2-1.3) mg/dL Alkaline Phosphatase 210 H (38-126) U/L Total Protein 5.8 L (6.3-8.2) g/dL Albumin 1.9 L (3.5-5.0) g/dL 01/05/24 Range/Units 06:04 WBC (3.8-10.6) k/uL RBC (4.30-5.90) m/uL Hgb (13.0-17.5) gm/dL Hct (39.0-53.0) % RDW (11.5-15.5) % Plt Count (150-450) k/uL ABG O2 Saturation 98.3 H (94-97) % Hemoglobin 7.7 L (13.0-17.5) gm/dL Chloride (98-107) mmol/L Carbon Dioxide (22-30) mmol/L BUN (9-20) mg/dL Glucose (74-99) mg/dL POC Glucose (mg/dL) (70-110) mg/dL Calcium (8.4-10.2) mg/dL Total Bilirubin (0.2-1.3) mg/dL Alkaline Phosphatase (38-126) U/L Total Protein (6.3-8.2) g/dL Albumin (3.5-5.0) g/dL Assessment and Plan Assessment: 1. Acute kidney injury secondary to ATN secondary to septic shock. Creatinine 0.86 on admission and up to 5.38 dated November 29, 2023. nonoliguric. UA fairly benign. No hydronephrosis noted on imaging. Started hemodialysis on 11/29/2023 for worsening volume status and acute kidney injury. Renal function h as improved and dialysis catheter was discontinued on 12/28/2023 2. Perforated small bowel status post exploratory laparotomy with abdominal washout, small bowel resection and J-tube replacement November 25, 2023. 3. A-fib with RVR. s/p amiodarone drip. 4. Recently diagnosed gastric B-cell lymphoma. 5. Septic shock. 6. Hypokalemia status post replacement. Potassium is elevated today at 5.3 and TPN has been adjusted. 7. Hypophosphatemia, being supplemented in TPN. 9. Hypernatremia, status post D5W and improved. Plan: IV Lasix as needed Continue TPN Overall prognosis is guarded
--- NOTE | 2024-01-05 10:54 | P.PN ---
Subjective Progress Note Date: 01/05/24 Principal diagnosis: Abdominal pain. This is a 73-year-old white male with history of chronic abdominal pain for the last 8 months has been treated with Protonix 40 mg daily for the last 3 months with no improvement. Patient had a 22 pound weight loss in the last [address] of the abdomen and pelvis 3 weeks ago showed thickening of the antral wall with pathological adenopathy posterior to the stomach suspicious of neoplasm. Today the patient underwent elective upper endoscopy to evaluate further, patient received IV sedation by anesthesia endoscope was inserted into the mouth, esophagus was intubated without any difficulty there was evidence of large amount of liquid and solid food noted in the stomach suggestive of gastric outlet obstruction. Scope could not be advanced through the pylorus, however in the prepyloric area there was a large superficial ulceration identified with multiple biopsies were done from this area. The body cardia and fundus could not adequately visualize because of large amount of retained food in the stomach. Scope was withdrawn back to the stomach and upon careful examination the mucosa of the antrum body and cardia as well as the fundus appeared normal. Procedure was being performed and biopsies were done patient threw up and subsequently became hypoxic there was clearly evidence of witnessed aspiration anesthesia intubated the patient, procedure was terminated, and the patient was transferred to the ICU, this consult was initiated. Patient is now on assist- control rate of 20 tidal volume 500 FiO2 70% PEEP of 10 ABG is pending, earlier ABG showed profound hypoxia patient is on propofol at 50 mcg/kg/min, next ABG is pending. Chest x-ray showed chronic changes without evidence of acute pulmonary disease. Patient was seen and examined today on 11/13/2023, remains in the ICU, intubated mechanically ventilated, on assist-control rate of 20 tidal volume 500 FiO2 50% and PEEP of 10 ABG showed a pO2 of 143 pCO2 47 pH of 7.28 hence PEEP was cut down to 6, and increased rate to 22. Patient is still requiring IV fluid at 100 cc/h/LR. Requiring norepinephrine at 0.08 mcg/kg/min he is also on propofol at 50 mg/kg/min antibiotics arce patient is receiving Zosyn. Chest x-ray is showing worsening infiltrates specially in the left lung. This could be related to aspiration pneumonia. Patient had witnessed aspiration during endoscopy/upper endoscopy.WBC count is 14 hemoglobin 7.6 basic metabolic profile is normal BUN is 26 creatinine 1.57 obviously the patient sustained some acute kidney injury baseline creatinine 0.86 patient had received fluids over the last 24 hours, remains on fluids at 100 cc/h Patient with seen and examined today on 11/14/2023, patient remains in the ICU, intubated and mechanically ventilated. Failed weaning trial yesterday and he became quite agitated and desaturated once he went off propofol. Had to be placed back on assist-control mode of mechanical ventilation and sedation. Today the patient is on assist-control rate of 22 tidal volume 500 FiO2 50% PEEP of 6. ABG showed a pO2 of 123 pCO2 51 pH of 7.32, and I cut down his FiO2 down to 45%, patient is receiving a unit of packed RBCs for hemoglobin of 6.9 today. Patient had an episode of A-fib RVR at 3 AM in the morning, seen by cardiology, and recommended patient goes on amiodarone. Still requiring norepinephrine at 0.05 mg/kg/min, he is on LR at 100 cc/h propofol at 50 mg/kg/min. Remains empirically on Zosyn for aspiration pneumonia. My plan today is transitioning the patient to Precedex, hopefully discontinue propofol, and at least give the patient a decent weaning trial or at least check weaning parameters before we proceed to weaning trial. Chest x-ray continues to show evidence of pneumonia mostly in the left lung and left lower lobe more specifically. Some pulmonary vascular congestion is noted with interstitial edema, small pleural effusion is also noted/left side. WBC count today is 12 hemoglobin 6.9 basic metabolic profile is normal bicarb is 25, BUN is 25 creatinine is improving down to 1.21 from 1.57 yesterday Patient was evaluated today on 11/15/2023, patient remains in the ICU, he was extubated yesterday, and his extubation was relatively uneventful. However the patient continues to have nasogastric tube in place, his pathology report came back showing non-Hodgkin's lymphoma, patient has gastric outlet obstruction, and the recommendation by GI is to consult surgery for a jejunostomy tube which is appropriate. Patient will be seen today by oncology and he will be seen by ge banneral surgery. In the meantime patient is comfortable, he is on 5 L nasal cannula he has LR running at 100 cc/h, he is remains on Zosyn for aspiration pneumonia remains on amiodarone which was started by cardiology for atrial fibrillation with RVR, presently in sinus rhythm. Cannot switch him to oral because of the fact that remains n.p.o., patient remains on TPN. WBC count is 10.7 hemoglobin 7.5 electrolytes are normal renal profile is normal, creatinine normalized to 0.96 Patient was evaluated today on 11/16/2023, remains in the ICU, on 5 L nasal cannula remains on amiodarone at 0.5 mg/min remains on LR at 100 cc/h, however his chest x-ray is showing some component of interstitial edema or could be findings related to his recent episode of aspiration/aspiration pneumonia, nonetheless the patient seems to be a bit symptomatic, he has intermittent cough and wheezing, I am recommending Lasix 40 mg IV push, cut down his IV fluid to 50 cc/h, continue Zosyn, patient will be placed on DuoNeb updrafts and on Solu- Medrol. Patient is scheduled to have jejunostomy-tube placement today. WBC count is 13 hemoglobin 7.7 basic metabolic profile is normal and renal profile is normal Patient was evaluated today on 11/17/2023, patient underwent uneventful placement of a jejunostomy tube yesterday, in the ICU on 5 L, patient is relatively stable, not in any distress, patient continues to have nasogastric tube in place although he did have a J-tube placed yesterday. Patient was seen by oncology for his non-Hodgkin's lymphoma involving the gastric outlet. Today's x-ray showed evidence of pneumonia/bilateral interstitial infiltrate/edema patient was given a dose of Lasix, I reminded the patient had an aspiration episode which was significant. And he required intubation mechanical ventilation for a few days.WBC count today is 9.1 hemoglobin 7.9 electrolytes are normal renal profile is normal hence I plan to transfer the patient out of the ICU to a cardiac floor. And hopefully discharge planning in the next 2 days for The patient was seen today November 18, 2023 in follow-up in the intensive care unit. He is currently sitting up in bed. Awake and alert in no acute distress. He is maintaining O2 saturations in the 90s on 5 L/min per nasal cannula. Glucose 177. Remains on DuoNeb inhalations and Solu-Medrol. Antibiotics in the form of Zosyn. He has a J-tube in place. He was initiated on vital AF 1.2 at 10 mL an hour with a goal of 82 mL/h The patient is seen today November 19, 2023 in follow-up in the intensive care unit. He is a regular medical floor overflow patient. He is currently sitting up in a chair. Awake and alert in no acute distress. He is maintaining O2 saturations in the 90s on 5 L/min per nasal cannula. No IV fluids. He denies any worsening shortness of breath, cough or congestion. He is having some issues with diarrhea. He remains on Zosyn. He is receiving vital AF at 55 mL/h with a goal of 82 mL/h. Glucose 161. Solu-Medrol, DuoNeb inhalations. The patient is seen today November 20, 2023 in follow-up on the regular medical floor. He is currently up in a chair at the bedside. Awake and alert in no acute distress. Denies any worsening shortness of breath, cough or congestion. He is maintaining O2 saturation in the 90s on 3 L/min per nasal cannula. He continues on Zosyn. Continues on bronchodilators and steroids. White count 12.3. Hemoglobin 9.0. Platelets 258. Glucose 168. He is not tolerating his tube feeds as he has developed diarrhea. C. difficile screen was negative. Abdominal series revealed cardiomegaly with left basilar acute infiltrate and/or atelectasis. Overall nonspecific bowel gas pattern. A small bowel obstruction needs to be considered. Progress note dated November 21, 2023. The patient is seen in room 517. The patient is currently on 3 L of oxygen. He continues on Zosyn. His biggest complaint has been abdominal discomfort and diarrhea. He did have a CT scan of the abdomen and pelvis. Current laboratory data includes a white count of 14.4, hemoglobin 8.8, hematocrit 28.7, and platelet count 229,000. Sodium 139, potassium 4.1, chlorides 103, CO2 30, BUN 42, creatinine 0.94. Glucose is 158. Calcium is 8.5. Progress note dated November 22, 2023. 73-year-old male seen in room 517. He currently is on 2 L of oxygen. Room air saturation was 89%. Chest CT shows bilateral patchy infiltrates. He continues on Zosyn. He is still not taking anything by mouth. No new laboratory data today other than a glucose of 138. Gram stain was negative. Progress note dated November 23, 2023. 73-year-old male seen in room 517. He is resting comfortably without com plaints. He continues on saline at 10 cc an hour, tube feedings with Pivot at 20 cc an hour, Zosyn, and 2 L by nasal cannula. He has had an uneventful night. Laboratory data today includes a white count 14.5, hemoglobin 9.7, hematocrit 31.4, and a platelet count of 242,000. Sodium 138, potassium 3.7, chlorides 106, CO2 26, BUN 39, creatinine 0.95. Glucose is 181. Calcium is 8.5. Sputum sampling was negative. Progress note dated November 24, 2023. 73-year-old male who is seen in room 517. The patient has been having significant abdominal discomfort, and went for a evaluation, ordered by surgery today, to determine whether or not the feeding tube, was in proper position, and whether or not there is anything acutely going on in the abdomen. He had been having diarrhea. He is on 3 L of oxygen. He has been here for 12 days. This is a patient, that had a prior EGD, aspirated, because of gastric outlet obstruction, and was diagnosis of non-Hodgkin's lymphoma. He is currently on Zosyn, DuoNebs, and Solu-Medrol. He has been NPO. Chest x-ray showed a left lower lobe infiltrate. Abdominal x-ray showed multiple air-fluid levels. CT of the abdomen showed multiple dilated small bowel loops, consistent with obstruction, pneumoperitoneum, ascites, and cholelithiasis. White count was 14.1, hemoglobin 8.9, hematocrit 29.5, and platelet count was 255,000. Glucose was 143. 11/25/2023, the patient is being seen in the intensive care unit. The patient is critically ill, n.p.o., he has an NG tube in place. Following the NG tube insertion, there was a total of 2.0 L of output and the patient's J-tube was also draining approximately 200 cc over the past 8 hours. Continues to have abdominal pain which is rather diffuse and the patient has direct abdominal tenderness. CAT scan of the abdomen was noted and was consistent with small bowel obstruction. The patient has a stomach that was inflated and in the same time there were multiple loops of small bowel distended with fluid. This extended to the pelvis. J-tube with contrast nondilated small bowel loops within the mid abdomen. Additional loops of small bowel were seen that was dilated. There was some contrast in the right lower quadrant and contrast was also in the cecum. No transition point was identified. The dilated loops of the bowel appeared to be in the proximal jejunum and distal to the duodenum. General surgery is on the case the patient will be taken to the operating room for another exploratory laparotomy. Noted the CAT scan of the abdomen also showed pneumoperitoneum and small amount of ascites and cholelithiasis. Hemodynamically, the patient is currently on normal saline at rate of 75 cc an hour. He is hypotensive and is going to be started on pressors. He is on 4 L of oxygen by nasal cannula. He also has sustained acute kidney injury. Blood work from today shows a rise in the creatinine which is currently up to 2.5 with a BUN of 57. Serum bicarb is at 14 with an anion gap of 11. The patient WBC count is at 8.2 with a hemoglobin of 12.3 and a platelet count of 188. Chest x- ray from this morning is showing a right-sided port and a stable left lung airspace disease and an NG tube being in place. The patient remains on IV Zosyn. The patient is receiving Dilaudid for pain control. The patient remains on IV Solu-Medrol 60 mg every 6 hours. It was noted that the patient's surgical wound over the port has dehisced and there is some serous drainage and erythema at the incision site. Awake and alert and communicating. Family at the bedside. No apparent signs of respiratory distress at this point. 11/26/2023, the patient is being seen in follow-up. Events from yesterday was noted and the patient was taken to the operating room for exploratory laparotomy. The patient was found to have large amount of free fluid noted in the abdomen and there was significant contamination. There was perforation of the small bowel with the balloon of the previously inserted jejunostomy tube penetrating through the perforation. As such, the tube was removed, abdominal washout was done. Small bowel resection was done and the patient had a nodular jejunostomy tube inserted. Postop, the patient was extubated he was unable to tolerate extubation and the patient was kept intubated on mechanical ventilator and he was brought back to the intensive care unit. He is currently postop day #1 following his small bowel resection. Abdominal surgical wound site is dry c lean and intact. This morning, the patient remains sedated on propofol which is currently running at 35 mcg/kg/min. He is on assist-control mode of mechanical ventilation at rate of 28, tidal volume of 550, FiO2 of 60% with a PEEP of 5. Blood gas from today shows a pH of 7.35 with a pCO2 44 and pO2 of 88. Chest x- ray shows adequate positioning of the orotracheal tube. The patient has a Mediport on the right and a subclavian triple-lumen catheter on the left and the patient has persistent bilateral pleural effusion and infiltrates in lung base bilaterally. Hemodynamically, the patient remains in shock. He has been on high-dose norepinephrine which is currently running at 0.28 mcg/kg/min and the patient is also on vasopressin at 0.03 units an hour. He is IV fluids are in the form of bicarb infusion running at rate of 150 cc an hour. He is in sinus tachycardia. NG tube output has been 250 cc over the past 8 hours and the output from the J-tube is minimal at this point in time. Urine output is quite diminished as the patient has also sustained acute kidney injury. Overall fluid balance is +4.9 L over the past 24 hours. The patient's white cell count of 5.7 with a hemoglobin 9.9 and platelet count of 172. BUN is 72 with a creatinine of 2.8 and sodium levels at 143. The calcium level is at 6.5. LFTs are normal. Triglyceride level is at 315. On 11/27/2023, the patient remains critically ill. Remains intubated and on mechanical ventilator, still awaiting shock which is essentially septic shock. Remains on propofol which is running at 50 mcg/kg/min. Remains on the mechanical ventilator, assist-control mode with rate of 28, tidal volume of 550 with an FiO2 of 60% with a PEEP of 5. Blood gas shows a pH of 7.29 with a pCO2 of 47 and pO2 of 78. The patient had a follow-up chest x-ray that showed lower lobe consolidation slightly worse on the right and the orotracheal tube is in a good location. Urine output is diminished in the order of 5 to 10 cc an hour and the patient is also developing progressive worsening renal function. Remains on normal citrate of 150 cc an hour and the patient was started on TPN which is running at 30 cc an hour. He has a triple-lumen catheter in his left subclavian. Overall fluid balance over the past 24 hours is +3.9 L. Output from the NG tube and the J-tube is minimal. Hemodynamically, he is hypotensive and norepinephrine running at 0.45 mcg/kg/min. Vasopressin is a physiologic dose. He received amiodarone and he remains on maintenance amiodarone of 0.5 mg/min and the patient continues to be in atrial fibrillation and is having episodes of tachycardia. The white cell count is at 13, hemoglobin 9.4 platelet count is pending. The patient's BUN is 83 with a creatinine of 3.7. Sodium is at 140 with a potassium level of 5.5 dropped down to 4.4 as the sample was hemolyzed. LFTs are normal. Abdominal wound is dry clean and intact. RAYA drainage is essentially serous at this point in time. 11/28/2023, the patient is being seen for a follow-up. The patient remains intubated on mechanical ventilator. This morning, the patient tolerated propofol drip running at 50 mcg/kg/min. The patient is on mechanical ventilator assist-control mode with rate of 28, tidal volume of 550, FiO2 55% with a PEEP of 5. Chest x-ray shows stable findings with lower lobe consolidations bilaterally. Blood gas shows a pH of 7.32 with a pCO2 38 and pO2 90. Neuropathy has improved and the patient is producing approximately 30 cc an hour and the overall input output balance is +3.3 L over the past 24 hours. The patient is still on pressors although his pressor requirements have improved since yesterday. He is on norepinephrine which is running at 0.05 mcg/kg/min and vasopressin physiologic dose. Also, the patient on amiodarone drip regarding his chronic ongoing atrial fibrillation. Amiodarone drip is running at 0.5 mg/min. Nevertheless, the rate is under much better control. Noted the patient was given a dose of digoxin 0.5 mg IV yesterday which helped with rate control. Remains on normal citrate of 150 cc an hour. Remains on TPN at 40 cc an hour. Output from the J-tube is fecal. Output from the NG tube is more gastric. Surgical wound site is dry clean and intact. Sputum Gram stain and culture showing Pseudomonas and Citrobacter. Note that the Citrobacter was intermediate resistance to Zosyn. This will be discussed further with infectious disease. Blood cultures are still pending for now. They have negative based on the most recent check. Blood work from today shows WBC count 11.2, hemoglobin 7.9 and platelet count of 46. Sodium is at 140, potassium is at 4.3, chloride is 114 with a bicarb of 18. He has 93 and the creatinine is 4.8. Serum random vancomycin level is at 25.7. On 11/29/2023, the patient is being seen for a follow-up. Remains intubated on the mechanical ventilator. The patient sedated on propofol which is running at 35 mcg/kg/min. Synchronous with mechanical ventilator. On today's evaluation, he is on assist-control mode with rate of 28, tidal volume of 550, FiO2 55% with a PEEP of 5. Chest x-ray shows lower lobe consolidation bilaterally worse on th e right and the orotracheal tube is in good location. The blood gas showed a pH of 7.34 with a pCO2 of 35 and a pO2 of 84. No significant orotracheal secretions. Hemodynamically improved compared to yesterday. In fact, the patient is on minimal norepinephrine that was discontinued earlier this morning. The patient has converted to normal sinus rhythm. Remains on amiodarone at 0.5 mg/min. Overall fluid balance over the past 24 hours is 2.4 L positive. Urine output has been adequate and the patient is currently on IV Lasix. Nevertheless, the patient has developed progressive worsening renal function. Creatinine is up to 5.3 on today's evaluation with a potassium level of 4.4. Serum bicarb is at 18 with an anion gap of 9. WBC count is at 8.1 with a hemoglobin of 7 and a platelet count of 32 which has dropped compared to earlier evaluation. The rest of the coagulation profile was normal from 11/28/2023. Fibrinogen level is slightly elevated. Sputum samples have shown a combination of Citrobacter and Pseudomonas aeruginosa. Based on cultures and sensitivities, the patient will be taken off his IV Zosyn and he will be switched to IV meropenem. Output from the J-tube is fecal. Output from the NG tube is gastric and surgical wound site is dry clean and intact. He is afebrile for now. Hemodynamically, the patient is doing better. He remains on TPN for nutritional support. IV fluids are also running at a rate of 75 cc an hour. Remains on vancomycin. 11/30/2023, the patient is being seen for a follow-up. The patient remains on propofol at 50 mcg/kg/min. Ventilator settings are essentially unchanged. The patient remains on assist-control mode with rate of 18, tidal volume of 400, FiO2 50% with a PEEP of 5. The blood gas showed a pH of 7.37 with a pCO2 of 43 and pO2 of 127. Chest x-ray shows no significant interval change. Patient remains on normal saline at rate of 75 cc an hour and TPN at rate of 35 cc an hour. Fluid balance is positive. Hemodialysis was performed yesterday and the second session of hemodialysis to be done today. The patient's urine output is in the order of 20 to 30 cc an hour. The patient has an NG output of 350 cc for yesterday and the drainage from the J-tube is in the order of 400 cc over the past 24 hours. The blood work shows a WBC count of 10.8, hemoglobin 8.1 and platelet count of 41. Platelet counts are essentially stable and slightly improved compared to yesterday. The sodium level is at 133, potassium is at 4.3, BUN is 93 with a creatinine of 3.6. LFTs are within normal limits. Albumin is down to 2.1. The patient is currently on no pressors. Norepinephrine and vasopressin are both discontinued and the patient remains in normal sinus rhythm. No other significant events overnight. Family has been updated on his condition. Antibiotic coverage is currently with IV meropenem. Vancomycin and Zosyn have been both discontinued. On 12/01/2023, the patient remains sedated on propofol which is running at 25 mcg/kg/min., Comfortable and synchronous mechanical ventilator. The patient remains on assist-control mode rate of 28, tidal volume of 550, FiO2 40% and PEEP of 5. Blood gas shows a pH of 7.49 with a pCO2 of 34 and pO2 of 121. Patient underwent hemodialysis yesterday. No plans for hemodialysis today the patient is producing urine output. Remains on TPN for nutrition support rate of 75 cc an hour. IV fluids are currently at KVO. The chest x-ray from today shows bilateral lower lobe consolidation worse on the right. No significant change in the volume status. The patient continues to have third spacing and edema in all 4 extremities. Nevertheless, urine output is adequate at this point in time and the patient remains on Lasix 80 mg IV every 12 hours. Remains NPO. NG tube and J-tube are both drainage. Output is noted. Remains on IV meropenem. Afebrile. Currently on no pressors. Blood work shows a WBC count of 11.4, hemoglobin of 8.1 and platelet count of 46. Sodium is at 131, potassium level is at 3.7, chloride 101 and bicarb is at 24. BUN is 84 with a creatinine of 3.6. Glucose of 228. LFTs are within normal limits. Patient was reevaluated today on 12/02/23, patient remains in the ICU, patient is familiar to my service, I saw this patient 3 weeks ago. Since then he had a very complicated hospital course, related to his jejunostomy tube dislodging and leaking and picture of abdominal sepsis and worsening pneumonia/ARDS. Patient had to be placed back on mechanical ventilation, and he is now intubated and mechanically ventilated. He is on assist-control rate of 20 tidal volume 550 FiO2 40% PEEP of 5 ABG showed a pO2 of 111 pCO2 38 pH of 7.43 and I cut down his FiO2 to 35% and increase his flow rate from 60-70. Patient remains on TPN at 75 cc/h he is on propofol at 25 mcg/kg/min patient is on Cleviprex which I added today for elevated blood pressure. Receiving Lasix 80 mg every 12 hours is also on Merrem as per infectious disease. Patient is on hemodialysis and being followed by nephrology. Patient required multiple abdominal surgeries since his initial admission. Chest x-ray continues to show worsening pneumonia involving both lungs, right more so than left, I suspect there may be a component of ARDS. His initial presentation was the presentation of aspiration pneumonia to begin with and that was 3 weeks agoWBC count is 10.3 hemoglobin 8.6 sodium 131 potassium 4 chloride 100 bicarb 23 BUN is 111 creatinine 4.02 blood sugar is 248. Albumin is 1.9 Patient was evaluated today on , patient remains in the ICU, intubated and mechanically ventilated. Patient is on assist-control rate of 20 tidal volume 550 FiO2 35% and PEEP of 5 ABG showed a pO2 of 99 pCO2 39 pH of 7.44 patient is undergoing hemodialysis today, and the plan is to remove 2 L. He is remains on propofol at 35 mcg/kg/min, remains on TPN at 75 cc/h. Remains on Merrem. Patient is not requiring any pressors today. Yesterday patient did not tolerate to be off sedation long enough, and today we tried the same sedation interruption, and the patient did not do well post interruption of sedation, became extremely agitated restless, tachycardic, and could not fully assess mental status off sedation. Hence the patient was placed back on AC mode of mechanical ventilation, and the plan is to continue the same supportive care measures. Family updated on his condition and most likely the patient will end up requiring tracheostomy in the next few days.WBC count is 8.5 hemoglobin 8.2 basic metabolic profile is relatively unremarkable BUN is 89 creatinine 3.45 chest x-ray today showed stable chest, suspect some right-sided pleural effusion which would likely improve with hemodialysis/ultrafiltration. X-ray of abdomen showed nonspecific nonobstructive bowel gas pattern Patient was seen today on 12/04/2023, remains in the ICU, intubated mechanically ventilated, on assist-control rate of 20 tidal volume 550 FiO2 35% PEEP of 5 ABG showed a pO2 of 112 pCO2 38 pH of 7.45, hence no changes were made in ventilator settings. Patient is on propofol at 35 mcg/kg/min he is also on IV fluid at KVO TPN at 75 cc/h. Remains on hemodialysis remains on Lasix 80 mg IV push twice daily, remains on Merrem. This x-ray continues to show the same findi ngs/airspace disease in both lungs, not much of a change in the last 2 days, however his oxygenation seems to be improved. WBC count is 7.1 hemoglobin 7.7. Electrolytes are normal, BUN is elevated 77 creatinine 3.32, patient is on hemodialysis. His condition was discussed today with the at bedside, and I do not believe the patient is ready to be weaned or extubated, however he seems to get extremely agitated when he goes off propofol, today I plan to transition propofol to Precedex, give him a trial on Precedex and determine whether the patient becomes more appropriate and at least ready for any weaning trials. Clinically I doubt if this will happen but we will go ahead and try Patient was evaluated today on 12/05/2023, remains in the ICU, intubated mechanically ventilated, not much of a change noted in the last 24 hours. Remains on assist-control of 20 tidal volume 550 FiO2 35% PEEP of 5 ABG showed a pO2 of 90 pCO2 37 pH of 7.48 hence chose not to change any of his ventilator settings. Yesterday the patient failed again trial of weaning, and he was never anywhere near ready to be weaned in spite of placing him on Precedex and off propofol, at 1 point the patient became extremely agitated restless and he was biting on the endotracheal tube could not fully awake the patient and determine improvement in his mental status. Hence patient was placed back on propofol yesterday and he remains on propofol today. He is on propofol at 25 mcg/kg/min he is on TPN at 75 cc/h surgery is considering starting his J-tube feedings today. Remains on hemodialysis remains on Merrem remains on Lasix 80 mg IV push twice daily overall not much of a change his chest x-ray is basically about the same showing bibasilar airspace disease. Today I had a discussion with the regarding the option of tracheostomy extremely reluctant to have it done yet. Said that the patient had multiple complications with previous surgeries and she is afraid that he is going to have another complication with the surgeryWBC count is 10.2 hemoglobin is 8, basic metabolic profile is normal sodium 130 BUN 70 creatinine 2.89 Patient was seen today on 12/06/23, remains in the ICU, intubated mechanically ventilated, his ventilator settings are assist-control rate 20 tidal volume 550 FiO2 35% and PEEP of 5 ABG showed a pO2 of 103 pCO2 36 pH of 7.47 patient opens eyes but does not follow any other instructions. He is now off propofol for the last 24 hours, he is maintained on Precedex at 0.4, TPN at 75 cc/h vital AF at 5 mL/h. Patient remains on Merrem, patient did not receive dialysis today because issues related to occluded dialysis catheter. Nonetheless the patient is making urine, and continues to improve with diuretics. Chest x-ray continues to show bibasilar airspace disease, not much of a change control analyst the last 1 week.WBC count today is 11.8 hemoglobin is 7.9.Basic metabolic profile is normal BUN is 92 creatinine 3.74. Blood sugar is 226. Family is at bedside, considering his overall mental status at this point, not quite ready to start checking weaning parameters, and is not ready for weaning. Nonetheless I plan to keep him on Precedex, and hopefully avoid narcotics and other sedatives. His mentation starts clearing a bit more, then will start trials of weaning parameters and/or weaning trials Patient was seen today on 12/07/2023, remains in the ICU, intubated and mechanically ventilated, on assist-control rate of 20 tidal volume 550 FiO2 35% PEEP of 5 ABG showed a pO2 of 83 pCO2 33 pH of 7.50 hence the tidal volume was cut down to 500. Patient remains off propofol remains off narcotics is only on Precedex for sedation at 0.6 mg/kg/h. He is on norepinephrine at 0.02 TPN at 75 cc/h IV fluid at KVO vital AF at 10 mL/h is also on Merrem. Neurologically I am concerned about this patient neurological status, does not seem to be waking up much, he opens his eyes but does not follow any instructions and spite of sedation hold for quite some time. Hence I am recommending a CT of the brain and multiple recommending a neurological consultation on this patient. WBC count is 18 7 hemoglobin is 8.4, basic metabolic profile is normal BUN is 75 creatinine 2.95, patient is back on dialysis, he had a new hemodialysis catheter placed yesterday by vascular surgery, and he will be restarted back on hemodialysis. CT of the brain done shortly after evaluating the patient showed no acute intracranial process chest x-ray basically about the same, continues to show small left and moderate right basilar infiltrate. Has not changed much over the last 1 week, patient remains on antibiotics. Patient was seen today on 12/08/2023, remains in the ICU, intubated and mechanically ventilated, remains on assist-control rate of 20 tidal volume 500 FiO2 35% PEEP of 5 ABG showed a pO2 of 88 pCO2 37 pH of 7.47 hence no changes were made in ventilator settings. Chest x-ray is showing slight increase in his right-sided pleural effusion, however his oxygenation seems to be about the same, and the patient is responding to Lasix given at 80 mg IV push every 12 hours, he is also doing well with hemodialysis he had 2 L removed yesterday and 2 L the day before. Hence will not recommend thoracentesis at this point. But the pleural effusion will need to be closely monitored. Patient remains off propofol he is on Precedex at 0.6 mcg/kg/h. For the last 2 days, and his mentation is not much different from baseline. Continues to open his eyes and does not follow any other instructions has the patient is clearly not ready for weaning trials or extubation. Brought up the issue of tracheostomy again with the , she is still reluctant to proceed with tracheostomy on him at this point. Patient remains on Merrem, remains on TPN but his enteral feeding will be advanced today to full goal, and if that happens then we will can discontinue TPN. Patient is receiving vital AF 1.2@10 mL/h at this point.WBC count is 19.3 hemoglobin 7.6. Basic metabolic profile is normal BUN is 72 creatinine 2.99 blood sugar ranging between 250 up to 334. 12/09/23 - patient seen at bedside today, remaining in the ICU, intubated and mechanically ventilated, remaining on assist-control rate of 20, tidal volume 500, FiO2 30%, PEEP of 5 and oxygen saturation of 100%. Patient is on day 27 of his hospital stay (admitted 11/11), day 15 of this current ICU stay (readmit to the ICU 11/24) and day 15 of this current period of time on the ventilator (placed 11/24). ABG showed pO2 100, pCO2 36, pH 7.47. Chest x-ray was deemed to be stable, however possibly with slight improvement noted on the left with a right-sided pleural effusion remains evident however the patient's oxygenation remains to be about the same. Continue to receive 80 mg IV Lasix every 12 hours and is receiving daily hemodialysis, in which he has been having 2 L removed the past couple of days, hemodialysis yet to occur today. His creatinine is 3.57 (compared to 2.99 yesterday) and BUN 98 (compared to 72 yesterday). Due to this response to diuresis and hemodialysis, no thoracentesis recommended at this point however pleural effusion will need to continue to be monitored. Patient shon off propofol, he is on Precedex at 0.4 mcg/kg/h. Due to his mentation remaining near baseline, neurology had been consulted who ordered an EEG which showed diffuse background slowing of his severe degree which is suggestive for generalized cerebral dysfunction and can be seen with toxic metabolic encephalopathy, as well as the presence of sporadic intermittent, some higher amplitude, sharply contoured waves of generalized distribution. Because of this per neurology's recommendation, patient started on Keppra 500 mg twice daily. The patient does seem to be having some improved mentation, with opening his eyes and responding to commands some of this morning. Spontaneous breathing trial to be attempted today, to see if the patient will be able to come off of mechanical ventilation. If that is unable to occur, discussed with the patient as well as his and one of his daughters that a tracheostomy would be the most appropriate next course of action due to the potential dangers of sustained endotracheal intubation for prolonged period of time. The , while reluctant, seem to acknowledge that this is the appropriate course of action. He remains receiving meropenem 1 g nightly. He remains on TPN 75 mL/h, which she has been on since 11/21 (18), but his enteral feeding has been vital 1.2 AF at 10 mL/h with a goal rate of 80 mL/h. Patient drained 60 mg of serosanguineous fluid from his RAYA. His WBCs increased to 21.5 (compared to 19.3 yesterday), hemoglobin dropped to 7.2 (compared to 7.6 yesterday), hematocrit dropped to 22.0 (compared to 22.9 yesterday) and patient procalcitonin remains elevated at 3.07. 12/10/23 - Patient seen at bedside today, remaining in the ICU, intubated and mechanically ventilated, remaining on assist-control rate of 20, tidal volume 500, FiO2 30%, PEEP of 5 and oxygen saturation of 100%. Patient is on day 28 of his hospital stay (admitted 11/11), day 16 of this current ICU stay (readmit to the ICU 11/24) and day 16 of this current period of time on the ventilator (placed 11/24). ABG showed pO2 93, pCO2 37, pH 7.47, showing evidence of a mild metabolic alkalosis. Chest x-ray today showed stable disease compared to yesterday. He received levo overnight due to atypical blood pressure, patient's TPN was up to 120 due to the change in formula. Patient is scheduled to undergo tracheotomy today (12/09) at 16:30. Per the nurse and the overnight staff patient continues to open his eyes and shows some responsiveness to commands. Per nephrology's recommendation dialysis to be held today due to the patient going for the tracheotomy later, as well as the dip in blood pressure seen after yesterday's dialysis session which required Levophed. Patient's Hgb this morning 6.6, will be given 1 unit today, which will be the second unit he has received during his hospital course. Patient's airway resistance noted to be 3.3 cm/L/s, static lung compliance shown to be 45 mL/cm H2O and dynamic compliance 33 mL/cm H2O. 12/11/23 - Patient seen at the bedside, remaining in the ICU, with a tracheotomy tube and mechanically ventilated while receiving dialysis. Patient remains on assist-control rate of 20, FiO2 30%, PEEP of 5 and has an oxygen saturation of 97%. Patient is on day 29 of the hospital stay (admitted 11/11), day 17 of his current ICU stay (readmitted to the ICU 11/24) and day 17 of his current period of time on the ventilator (placed 11/24). ABG today showed pO2 115, pCO2 38, pH 7.44 continuing to show evidence of a mild metabolic alkalosis. Chest x-ray today showed stable disease. Patient had tracheotomy placed yesterday afternoon (12/09) without any complications. Patient has had 3 consecutive days of attempting spontaneous breathing trials in an effort to wean the patient off the ventilator, all of which failed to this point. Beginning today the patient's antibiotics (meropenem) will be discontinued and we will begin weaning his propofol down from 25 mcg/kg/min. As the patient is weaned off of the propofol, 0.5 Dilaudid and 1 mg IV Ativan to be used every 6 hours as needed. Patient is continuing to receive normal saline 20 cc/h, and has a total of 200 mL of serosanguineous fluid from his RAYA drain. TPN to continue at a rate of 120 mL/h additionally tube feeds, which had been held due to the patient receiving s traight catheter yesterday, will be restarted today with an ultimate goal being to receive enteral nutrition at a rate of 80 mL/h. TPN to continue until able to increase the enteral nutrition to at least 50 mL/h, as per the dietitian's recommendation. Will be exploring the possibility of the patient being moved to select specialty. 12/12/23 - Patient seen at the bedside this morning, in ICU room 253, while receiving and EEG, no significant events overnight. Patient remains with tracheotomy and is mechanically ventilated on assist control with a rate of 20, tidal volume 500, FiO2 30%, PEEP of 5 with an oxygen saturation of 98%. Patient is on day 30 of the hospital stay (admitted 11/11), day 18 of his current ICU stay (readmitted to the ICU 11/24) and day 18 of his current period of time with mechanical ventilation (placed in 11/24). ABG today showed pO2 92, pCO2 36, pH is 7.49 continue to show signs of a combined respiratory and metabolic alkalosis. WBC 17.9, Hgb 7.4, Hct 22.6, PLT 151; sodium 133, potassium 4.0, HCO3 27, BUN 88, creatinine 2.96. Chest x-ray done today continuing to show patchy infiltrate throughout the right lung with layering effusion. Patient is continuing to receive normal saline 20 cc/h, continues to receive Dilaudid 0.5 mg IV push every 6 hours as needed, as well as Ativan 1 mg IV every 6 hours as needed. Patient is no longer maintained on propofol. TPN continues at a rate of 120 mm/h and EN vital AF at 30 mL/h with a goal of 40 mL/h. Once goal is reached, TPN can be discontinued and patient will be switched over to Nepro 50 mL/h. Following the patient having 3 consecutive days of attending spontaneous breathing trials and effort to wean, we will begin trying the patient with CPAP and pressure support in effort to wean, today's trial the patient will be placed on PS 5 and PEEP of 5 for 25-45 minutes, or as he is able to tolerate it. Disc ussed with the patient's the importance of continuing to wean the patient's with trials, in an effort to build up some of the strength in his lungs to better be able to tolerate breathing on his own. Will continue to evaluate for possible placement in a long-term acute care facility. 12/13/23 - Patient seen at the bedside this morning, in ICU room 253, with no significant events overnight noted. Patient remains with tracheotomy and is mechanically ventilated on assist control with a rate of 20, tidal volume 500, FiO2 30%, PEEP of 5 with an oxygen saturation of 98%. Patient is on day 30 one of the hospital stay (admitted to 11/11), day 19 of his current ICU stay (readmitted to the ICU 11/24) and day 19 of his current period of time with mechanical ventilation (placed 11/24). ABG today showed pO2 87, pCO2 36, pH 7.48 continue to show signs of a combined respiratory metabolic alkalosis. WBC 17.3, Hgb 8.0, Hct 25.3, PLT 191; sodium 136, potassium 4.1, BUN 116, creatinine 3.17. This x-ray done today continues to show stable disease. Patient had an EEG completed yesterday (12/11) which showed an abnormal EEG, study being limited because of diffuse myogenic artifact. Background slowing suggestive of severe encephalopathy. Otherwise no appreciable epileptiform discharges, focal slowing, or seizure noted during the exam. Patient continues to receive Dilaudid 0.5 mg IV push every 6 hours as needed, as well as Ativan 1 mg IV every 6 hours as needed. Patient's TPN has been stopped, he is not receiving Nepro at 50 mL/h, which is goal. Patient Solu-Medrol has been discontinued, patient now receiving 30 mg prednisone daily. Patient's trial yesterday with CPAP and pressure support with the patient was sent PS of 5 and PEEP of 5, patient tolerated 40 minutes well it was noted that his respiratory rate increased and his minute ventilation also increased during this time. Will continue with another weaning effort today and continue to reassess how the patient tolerates. He will be receiving hemodialysis today, with the plan to hold over the weekend and then reassess Saturday per nephrology. Additionally IV Lasix has been discontinued on this patient, nephrology did state that he may need to resume receiving the Lasix if the urine output tapers. Progress note dated December 14, 2023. The patient is seen today in room 253. The patient remains on the mechanical v entilator. His settings include volume assist-control, rate 20, tidal volume 500, FiO2 30%, PEEP of 5. Blood gases show pO2 of 76, pCO2 of 36, pH of 7.47. The patient is getting saline at 10 cc an hour, and Nepro at 50 cc an hour which is goal. The patient will go back on pressor support of 5 and CPAP of 5 today. Yesterday, he spent 2-1/2 hours on pressure support. The patient did have a tem perature last night. He discussed some purulent drainage at the wound site. I have asked surgeon to come back and see the patient. In addition, the nurse will get blood, urine, sputum, and wound cultures going. He is not on any antibiotics. We will check a procalcitonin level. White count of 16.7, hemoglobin 8.1, hematocrit 24.5, platelet count is normal. Sodium 135, potassium 3.9, chlorides 103, CO2 24, BUN 106, creatinine 3.04. Calcium is 7.1. Magnesium is 2.0. Urine is yellow, with 1+ protein, 6 WBCs, and rare bacteria. Chest x-ray shows a stable chest x-ray, which is largely unchanged. Progress note dated December 15, 2023. 73-year-old male seen again in room 253. The patient remains on mechanical ventilator. Blood gases show pO2 of 78, pCO2 of 36, pH of 7.47. The patient is getting saline at KVO, and Nepro at 50 cc an hour which is goal. The patient did a spontaneous breathing trial yesterday, and went about 6 hours on PSV 5, CPAP of 5. The patient's procalcitonin level was elevated at 1.92. We added back Zosyn. Yesterday we did sputum, blood, urine, and wound cultures. The patient will have another spontaneous breathing trial today. Current labs include a white count 16.3, hemoglobin 7.5, hematocrit 22.6, and a normal platelet count. Sodium 138, potassium 3.5, chlorides 105, CO2 24, BUN 125, and creatinine 3.22. Glucose is 220. Calcium is 6.9. Chest x-ray shows a right- sided pleural effusion, and some similar changes, to the previous x-ray. This is a 73-year-old white male with history of chronic abdominal pain for the last 8 months has been treated with Protonix 40 mg daily for the last 3 months with no improvement. Patient had a 22 pound weight loss in the last [address] of the abdomen and pelvis 3 weeks ago showed thickening of the antral wall with pathological adenopathy posterior to the stomach suspicious of neoplasm. Today the patient underwent elective upper endoscopy to evaluate further, patient received IV sedation by anesthesia endoscope was inserted into the mouth, esophagus was intubated without any difficulty there was evidence of large amount of liquid and solid food noted in the stomach suggestive of gastric out let obstruction. Scope could not be advanced through the pylorus, however in the prepyloric area there was a large superficial ulceration identified with multiple biopsies were done from this area. The body cardia and fundus could not adequately visualize because of large amount of retained food in the stomach. Scope was withdrawn back to the stomach and upon careful examination the mucosa of the antrum body and cardia as well as the fundus appeared normal. Procedure was being performed and biopsies were done patient threw up and subsequently became hypoxic there was clearly evidence of witnessed aspiration anesthesia intubated the patient, procedure was terminated, and the patient was transferred to the ICU, this consult was initiated. Patient is now on assist- control rate of 20 tidal volume 500 FiO2 70% PEEP of 10 ABG is pending, earlier ABG showed profound hypoxia patient is on propofol at 50 mcg/kg/min, next ABG is pending. Chest x-ray showed chronic changes without evidence of acute pulmonary disease. 12/20/2023, the patient is being seen for a follow-up. More alert and awake compared to yesterday. He is able to move his fingers and toes on today's evaluation. Following commands. Nevertheless, his J tube has been clogged and was unable to utilize the tube that has been some leaks around the tube. No abdominal distention. No nausea or emesis. Hemodynamically stable. Will undergo hemodialysis today. He remains on pressure control mode of mechanical ventilation at rate of 16, pressure of 10, +5 PEEP with an FiO2 of 30%. Chest x-ray from today is essentially unchanged with a stable cavity in his right upper lobe. White cell count of 15.7, hemoglobin 7.2, platelet count is 203, blood gas showed a pH of 7.49 with a pCO2 of 33 and pO2 of 73. BUN is 88 with a creatinine 1.89 and sodium is at 141 with a potassium level of 4.1. He is producing adequate amount of urine output. Fluid balance has been -900 cc over the past 24 hours. Normotensive. Remains on a combination of Zosyn and daptomycin. Remains on Levemir insulin 24 units daily. This is currently on hold as the patient has not been able to obtain enteral feeding. Wound VAC still in place. 12/21/2023, the patient remains on the mechanical ventilator. Overnight, the patient experienced discomfort in his abdomen and he was restless. Based on that, the patient was placed on a higher dose of Precedex which is currently running at 0.6 mcg/kg/h. The patient was also asynchronous with the mechanical ventilator and based on that, the patient was switched to an AC mode and currently is at a rate of 16, tidal volume of 400, FiO2 of 30% with a PEEP of 5. The patient is adequately sedated for now. Chest x-ray remains unchanged. Tracheostomy tube in place and the patient is having increased amount of respiratory secretions. J tube needs to be replaced today and this will be done by his general surgery as the tube remains clogged. Urine output is low order of 30 cc an hour. Afebrile. Remains on Zosyn and daptomycin. White cell count is 16.9, hemoglobin 7.4 and a platelet count of 280. Blood gas from today showed a pH of 7.46 with a pCO2 of 36 and pO2 of 82. Sodium levels of 144, BUN is 19 with a creatinine of 2.2 and a serum bicarb is at 23. The abdominal wound remains unchanged. RAYA drain is serosanguineous. 12/22/2023, patient remains on Precedex at 0.4 mcg/kg/min. Arousable. Communicates. Profoundly weak. Remains on the mechanical ventilator with a rig ht lung abscess. SIMV mode mode rate of 16, tidal volume of 400, FiO2 30% with a PEEP of 5, with a pressure support of 8. Blood gas showed a pH of 7.46 with a pCO2 of 32 and a pO2 of 82. Chest x-ray remains unchanged with a right upper lobe cavitating lesion/opacity and a suspected lung abscess. This is rated Pseudomonas and the patient remains on IV Zosyn. He remains on daptomycin. Urine output is in order of 50 cc an hour.. The J-tube was unplugged yesterday. Nevertheless, the tube itself is malfunctioning and there is drainage around the tube requiring dressing changes the dressings being soakedConstantly. The patient's white cell count is 12.3 with a hemoglobin 7.7. Sodium is at 149, BUN 91 with a creatinine of 2.3. Bicarb is at 20. Undergoing hemodialysis periodically. Last hemodialysis was on 12/21/2023. Currently NPO. Abdominal wound is clean and the patient has a wound VAC in place. RAYA drain output is serosanguineous. Patient was seen today on 12/23/2023, remains in the ICU, intubated and mechanically ventilated. Patient is on IMV with pressure support/IMV 16, pressure support of 8, tidal volume 400, PEEP of 5. Patient seems to be doing well with that kind of mode of mechanical ventilation, ABG showed a pO2 of 76 pCO2 28 pH of 7.50. I changed his rate from 16-8 kept him otherwise on the same ventilator settings. Plan to gradually go down on the IMV rate until we can get him on pressure support of 8 and CPAP. Patient is requiring Precedex at 0.4 m cg/kg/h, he is on D5W at 50 cc/h. Remains on antibiotics in the form of daptomycin and Zosyn, chest x-ray continues to show bilateral airspace disease and right upper lobe lung abscess. Continues to have a bit of a leak from his J-tube being addressed by surgery has a wound VAC, and he had a RAYA drain. Mentation arce the patient is a bit more appropriate, opens his eyes, follows very simple instructions, seems to comprehend. Patient has a left brachial PICC line, he also has a left groin hemodialysis catheter. WBC count is 10.1 hemoglobin is 7 sodium is 149 potassium 4 chloride is 121 BUN is 86 creatinine 2.31. Blood sugar is 173. Remains on enteral feeding via J-tube, a bit of a leak is noted, and surgery is to address this. Sputum cultures have grown Klebsiella and Pseudomonas and remains on proper antibiotics Patient was seen and examined today on 12/24/2023, patient remains in the ICU, and mechanically ventilated. On IMV mode of 8 pressure support of 8 tidal volume 400 FiO2 30% and PEEP of 5 ABG showed a pO2 of 81 pCO2 32 pH of 7.45. Patient remains on daptomycin and Zosyn, remains on Precedex at 0.4 mcg/kg/h intermittently receiving Dilaudid for pain. Feeding arce is presently on hold, patient had a leak around the jejunostomy tube, surgery is recommending a trick le feed or TPN if could not use the J-tube. Patient is arousable follows simple instructions, and today I had a chance to get rid of the IMV mode, and I am recommending a pressure support of 8 and CPAP. For the last few hours the patient has been tolerating this mode of mechanical ventilation, however he is not quite ready to go to [facility] at this point. Chest x-ray continues to show significant opacity in the right upper lobe and airspace disease in the right lower lobe. Previously patient had a CT of the chest showing right upper lobe abscess. Again he remains on Zosyn and daptomycin.Labs today showed WBC count of 10.6 hemoglobin 7.8 sodium is 147, patient is now on D5W at 100 cc an hour his bicarb is 19 BUN 74 creatinine 2.08, gradually improving, his last hemodialysis was on the , nephrology is considering removing his dialysis catheter in the left groin and I believe that is appropriate patient was seen and examined today on 12/25/2023, remains in the ICU, intubated and mechanically ventilated. Patient had to be placed back on assist-control mode of mechanical ventilation yesterday, mostly because he developed significant agitation and restlessness, and ongoing persistent cough with some air leak from the cough of that tracheostomy. Patient had to be sedated and he was placed on propofol and he remains on propofol at 50 mcg/kg/min. Maximal dose of Precedex yesterday could not calm him down, hence we had to transition him from pressure support/CPAP mode of mechanical ventilation to assist-control mode of mechanical ventilation and fully sedated him with propofol replacing Precedex. Today the patient is sedated, he is on assist-control rate of 16 ti sierra volume 400 FiO2 30% PEEP of 5 ABG showed a pO2 of 98 pCO2 30 pH of 7.45 chest x-ray is basically the same showing significant airspace disease in the right upper lobe and right lower lobe. Remains on daptomycin and Zosyn. His IV fluid was transitioned to D5 4 5 from D5W sodium today is 141. His urine output is about 40 to 50 cc/h, renal profile is improving with steady trending of creatinine down. Patient continues to have leakage around the jejunostomy tube. Patient is being followed by surgery no specific recommendation made except to continue the same and except the leak as it isLabs today showed WBC count of 11.5 hemoglobin 8.2 basic metabolic profile is normal BUN is 60 creatinine down to 1.81 Patient seen today on 12/26/2023, remains in the ICU intubated mechanically ventilated sedated patient is on assist-control rate of 16 tidal volume 400 FiO2 30% PEEP of 5 ABG showed a pO2 of 82 pCO2 34 pH of 7.43. Patient is now on TPN at 30 cc/h propofol at 50 mcg/kg/min hemoglobin is down to 6.8 today and he is receiving a unit of packed RBCs. His IV fluids at 50 cc/h in the form of 0.9 normal saline. He was last night on a small dose of norepinephrine at 0.01 mcg/kg/min and is presently on hold. Antibiotics arce patient is on Zosyn daptomycin and Eraxis. Chest x-ray continues to show significant airspace disease involving the right upper lobe and right lower lobe not much of a change noted on the chest x-ray. Clinically the patient is about the same, today I plan to discontinue propofol, arrange for the patient to go on Precedex, and assess mental status off sedation. If tolerated, may transition the patient again to pressure support and CPAP type of mechanical ventilation, but he is not ready to go to that transition yet. WBC count is 11.6 hemoglobin 6.8. ABG today showed a pO2 of 82 pCO2 34 pH of 7.43 potassium is 3.3 being addressed accordingly BUN is 53 creatinine 1.84 Patient was evaluated today on 12/27/2023, remains in the ICU intubated and mechanically ventilated. Patient is presently on IMV mode of mechanical ventilation with pressure support rate of 16 pressure support 14 tidal volume 400 FiO2 30% and PEEP of 5 ABG showed a pO2 of 99 pCO2 31 pH of 7.44. Intermittently the patient has been experiencing episodes of extreme agitation and restlessness he is on Precedex at 0.5 mcg/kg/h. Patient is on IV fluid 0.9 normal saline at 50 cc/h and is also receiving TPN. Remains on Eraxis daptomycin and Zosyn patient is intermittently requiring Dilaudid, Ativan does not seem to help his agitation and restlessness. But Dilaudid does hence I would recommend 0.5 mg every 2-3 hours as needed for agitation. Patient has good urine output roughly about 100 cc/h. Continues to have leakage around the jejunostomy tube, and patient is undergoing the J-tube exchange today. Family is at bedside, seems to be quite anxious about his overall condition, and I explained to the that we are doing the best we can considering his critical illness situation and critical illness polyneuropathy. Patient is profoundly weak, and weaning the patient from mechanical ventilation is almost impossible. At least not at this point yet WBC count is 10.9 hemoglobin is 8.1 basic metabolic profile is normal BUN is 46 creatinine 1.90 patient has been off hemodialysis since the . Chest x-ray continues to show stable findings with right upper lobe opacity and right lower lobe opacity and possibly a small right-sided pleural effusion Was evaluated today on 12/28/2023, patient remains in the ICU, intubated and mechanically ventilated, on IMV mode of mechanical ventilation rate set at 16 he is on pressure support of 14 tidal volume 400 FiO2 30% and PEEP of 5 ABG showed a pO2 of 113 pCO2 31 pH of 7.43. No major events overnight, patient is still requiring Precedex at 0.7 mcg/kg/h. He is on TPN as we could not use his jejunostomy tube, no jejunostomy tube was done yesterday, IV fluid is 0.9 at 50 cc/h remains on TPN at 65 cc/h patient is on Eraxis daptomycin and Zosyn. Chest x-ray is showing improvement in his right upper lobe airspace disease/lung abscess and there is a slight improvement in his right lower lobe opacity. Kathryn ent is arousable but does not follow any instructions, patient gets agitated easily if aroused and he started gagging on the tracheostomy tube. Family is at bedside, again updated on his condition. WBC count is 7.6 hemoglobin 7.9. Basic metabolic profile is normal BUN is 45 creatinine down to 1.51 patient has not had any dialysis since 12/17, his renal functioning and urine output continues to improve, hence I am strongly recommending removing his dialysis catheter Patient was seen on 12/29/2023, remains intubated and mechanically ventilated, in the ICU, on IMV of 16 tidal volume 400 FiO2 30% PEEP of 5 ABG showed a pO2 of 105 pCO2 31 pH of 7.45. Remains on Precedex at 0.8 mcg/kg/h, remains on TPN at 65 cc/h IV fluid 0.45 at 50 mL/h remains on multiple antibiotics and antifungal including Eraxis daptomycin and Zosyn. His hemodialysis catheter has been removed, urine output has been excellent renal functioning is improving chest x- ray is showing improvement in his right upper lobe airspace disease/pulmonary abscess. Right lower lobe seems about the same with chronic opacity and possibly some small right-sided pleural effusion. Family is at bedside, patient is arousable but does not follow any instructions. Gets extremely restless and agitated easily hence patient is receiving Dilaudid which seems to be working much better for this patient than benzodiazepines. And we are trying to avoid Ativan, trying to avoid any propofol as much as possible. I believe his drainage from the jejunostomy tube is becoming less and less, hence we could start considering early next week arrangement to possibly transfer the patient to a select care specialty. In the meantime I am recommending that we go down on the IMV rate by 2 every 2 hours the goal is pressure support of 14 and IMV of 8. Progress note dated December 30, 2023. This is a 73-year-old male who is now been in the hospital for 48 days. The patient was admitted back on November 11. Currently, he is seen in the intensive care unit, room 253. The patient is currently on synchronized IMV mode, rate of 8, pressure support of 14, PEEP of 5, FiO2 30%, and a backup tidal volume of 400 cc. Blood gases showed a pO2 of 87, pCO2 of 31, and a pH of 7.42. The patient will be switched back to the volume assist-control mode, as he is not ready to be weaned. His minute volume is nearly 18 L/min. He is breathing at a rate of about 40 times per minute. He currently is on Precedex 0.8 mics per kilogram per minute, TPN at 90 cc an hour, and half-normal saline at 50 cc an hour. The patient continues on Zerbaxa, Eraxis, and daptomycin. White count 11.5, hemoglobin 8.1, hematocrit 25, platelet count of 78,000. Sodium 142, potassium 4.2, chlorides 119, CO2 20, BUN 42, and creatinine 1.22. Glucose is 178. Albumin is 1.9. Sputum from December 24 shows evidence of Citrobacter freundii and Pseudomonas aeruginosa. Blood cultures from the same day were positive for Staphylococcus. Chest x-ray shows extensive pleural-parenchymal opacities, in both lungs, and the chest x-ray is largely unchanged from the pre vious days x-ray. Progress note dated December 31, 2023. 73-year-old male now here in the hospital for 49 days. The patient was admitted way back on November 11. He is seen today in room 253. Family members are at the bedside. The patient currently is on volume assist-control, rate 32, tidal volume 400, FiO2 30%, PEEP of 5. Blood gases show pO2 of 94, pCO2 of 35, pH is 7.40. Unfortunately, the patient is not synchronous with the ventilator, and so we switched to pressure regulated volume control or VC plus. We set an inspiratory time at 0.8 seconds, and the targeted tidal volume of 450 cc. The patient is on TPN at 70 cc an hour, saline at KVO, propofol at 40 mcg/kg/min. The patient continues on Eraxis, daptomycin, and Zerbaxa. Current labs include a white count 12.8, hemoglobin 7.3, hematocrit 22.4, and a platelet count of 67,000. Sodium 140, potassium 3.6, chlorides 119, CO2 20, BUN 43, creatinine 1.15. Glucose is 223. Calcium is 6.8. Today's chest x-ray is largely unc hanged. Progress note dated January 01, 2024. 73-year-old male seen again in room 253. The patient has not been in the hospital for 50 days. The patient continues on the mechanical ventilator. He is on pressure regulated volume control, or VC plus. His target tidal volume is 450 cc and his inspiratory time RTI is 0.8 seconds. His respiratory rate is 32. PEEP is 5, and FiO2 is 30%. Blood gases show pO2 of 98, pCO2 of 34, and a pH of 7.40. The patient continues on propofol at 15 mcg/kg/min, and TPN at 90 cc an hour. The patient also continues on Zerbaxa, daptomycin, and Eraxis. White count is 12.1, hemoglobin 7, hematocrit 22.0, and platelet count 69,000. Sodium 141, potassium 4.3, chlorides 120, CO2 19, BUN 44, creatinine 1.11. Calcium is 7. Chest x-ray shows a right-sided pleural effusion, with adjacent atelectasis and/or consolidation. There is a small left-sided pleural effusion as well. Progress note dated January 02, 2024. 73-year-old male seen again in room 253. The patient has not been here in the hospital for 51 days. He remains on mechanical ventilator. He is on the pressure regulated volume control modality no also noted his VC plus. The patient is on a rate of 32 breaths/min, PEEP of 5, FiO2 30%, inspiratory time her TI was 0.8, and a target tidal volume of 450 cc. Blood gases show pO2 of 90, pCO2 34, pH is 7.40. The patient is receiving TPN at 90 cc an hour, propofol at 20 mcg/kg/min, and has received a total of 6 units of packed red blood cells. The patient is going to get Dilaudid and Ativan scheduled. Dilaudid will be 1 mg every 2 hours, and Ativan 1 mg every 6 hours. The patient continues on daptomycin, Eraxis, and Zerbaxa. White count is 10, hemoglobin 6.5, hematocrit 20.3, platelet count 83,000. Sodium 140, potassium 4.6, ch lorides 119, CO2 20, BUN 45, creatinine 1.08. Most recent cultures are from December 24, showing evidence of Citrobacter from the and Pseudomonas aeruginosa, in the sputum. Blood cultures, on the same day, show evidence of Staphylococcus species. Chest x-ray shows extensive pleural-parenchymal opacities in the right hemithorax, and patchy opacity at the left lower lobe area. Progress note dated January 03, 2024. 73-year-old male seen in room 253. The patient has now been in the hospital for 52 days. He remains on mechanical ventilator, with the modality being the pressure regulated volume control modality, also known as VC plus. The patient's inspiratory time is 0.8 seconds, and his targeted tidal volume is 450 cc. Rate is 32, FiO2 30%, PEEP of 5. Blood gases show pO2 of 95, pCO2 of 34, pH of 7.41. The patient is on TPN at 90 cc an hour, propofol at 15 mcg/kg/min, saline at 10 cc an hour. Daptomycin and Eraxis have been discontinued. Zerbaxa is on day #6 of . We are going to DC the metoprolol and midodrine from the [facility]. Apparently, the patient has been denied twice, to the [facility] by his insurance. White count is 1.5, hemoglobin 8, macro 24.4, platelet count 78,000. Sodium 139, potassium 5.3, chlorides 119, CO2 20, BUN 44, creatinine 1.05. Glucose 192. Calcium 7.1. Magnesium 1.8. The chest x- ray today, is largely unchanged. Progress note dated January 04, 2024. 73-year-old male seen in room 253. The patient has now been in the hospital for 53 days. He remains on the mechanical ventilator. He is on pressure regulated volume control or VC plus, but the inspiratory time is 0.8 seconds, and a targeted tidal volume of 450 cc. His rate is 32, FiO2 is 30%, PEEP of 5. Blood gases show pO2 of 81, pCO2 of 35, and a pH of 7.44. He is on propofol at 10 mcg/kg/min, TPN at 90 cc an hour, and saline at 10 cc an hour. His only anti biotic currently is Zerbaxa. White count 13.4, hemoglobin 8.1, hematocrit 25, platelet count 95,000. Sodium 141, potassium 5.2, chlorides 114, CO2 23, BUN 47, creatinine 1.10. Glucose is 110. Calcium 7.4. Albumin is 1.8. Chest x- ray shows a largely unchanged evaluation. Progress note dated January 05, 2024. 73-year-old male seen in room 253. The patient has now been in the hospital for 54 days. He remains on mechanical ventilator. He is on pressure regulated volume control, with inspiratory time of 0.8 seconds, and a targeted tidal volume of 450 cc. Rate is set at 32, FiO2 30%, PEEP of 5. Blood gases show pO2 of 98, pCO2 35, and a pH of 7.42. The patient's propofol has been weaned off. He is just getting scheduled Dilaudid and Ativan. He is getting TPN at 90 cc an hour, saline at 10 cc an hour. His only antibiotic is Zerbaxa, as Eraxis, and daptomycin has been discontinued. The patient will get a spontaneous breathing trial today with pressure support of 10 and CPAP of 5. White count 11.3, hemoglobin 7.6, hematocrit 23.4, platelet count 100,000. Sodium 138, potassium 3.9, chlorides 116, CO2 21, BUN 46, Creatinine 1.07. Albumin Is 1.9. Chest x- ray is largely unchanged. Objective - Vital Signs Vital signs: Vital Signs Temp 98.6 F 01/05/24 08:00 Pulse 86 01/05/24 10:00 Resp 20 01/05/24 10:00 BP 130/85 01/03/24 02:00 Pulse Ox 96 01/05/24 10:00 FiO2 30 01/05/24 10:00 Intake & Output 01/04/24 01/05/24 01/05/24 19:59 06:59 18:59 Intake Total 712 Output Total 460 Balance 252 Weight Intake: IV 52 0.9 Normal Saline @ KVO 40 Ceftolozane/Tazobactam 3 gm In Sodium Chloride 0.9 % 100 ml @ 100 mls/hr IV Q8H [facility] Rx#:[id number] Fat Emulsion 20% 250 ml In Empty Bag 1 bag @ 21 mls/hr IV TuThSa [facility] Rx#: [id number] Mvi, Adult No.4 with Vit K 10 ml Trace (Conc-1Ml/ Dose) 1 ml Potassium Acetate 36 meq In Amino Acid 5%-D15w+Lytes*E* 2, 000 ml @ 90 mls/hr IV . [id number] [facility] Rx#:[id number] Normal Saline Pressure 12 Saline Intake, IV Titration 300 Amount Magnesium Sulfate-D5w Pmx 100 1 gm In Dextrose/Water 1 100ml.bag @ 100 mls/hr IVPB Q1H [facility] Rx#: [id number] Potassium Chloride 10 meq 200 In Water For Injection 1 100ml.bag @ 100 mls/hr IVPB Q1H [facility] Rx#: [id number] propofoL 1,000 mg In Empty Bag 1 bag @ 15 MCG/ KG/MIN 9.144 mls/hr IV . [id number] [facility] Rx#:[id number] TPN/PPN 360 Ceftolozane/Tazobactam 3 gm In Sodium Chloride 0.9 % 100 ml @ 100 mls/hr IV Q8H [facility] Rx#:[id number] Mvi, Adult No.4 with Vit 360 K 10 ml Trace (Conc-1Ml/ Dose) 1 ml Sodium Acetate 22 meq Magnesium Sulfate gm 1 gm Calcium Gluconate 1 gm Sodium Phosphate 6 mmol In Amino Acid 5%-D15w 2,000 ml @ 90 mls/hr IV .[id number] [facility] Rx#:[id number] Output: Drainage 80 Medial Abdomen Right Abdomen 80 Urine 380 Other: Voiding Method # Bowel Movements ABP, PAP, CO, CI - Last Documented Arterial Blood Pressure 135/61 - Exam No acute distress, somewhat lethargic, in no acute distress, with a midline tracheostomy tube. HEENT examination is grossly unremarkable. Neck supple. Full range of motion. No adenopathy thyromegaly or neck vein distention. Midline tracheostomy tube noted. Cardiovascular examination reveals regular rhythm rate. S1-S2 normal. No S3 or S4. No discernible murmur noted. Lungs reveal mild scattered rhonchi. No wheezes or crackles. Breath sounds equal. Abdomen soft, without bowel sounds. Midline incision, there is for the most part intact, although there is some purulence noted, with some minimal dehiscence Extremities are intact. No cyanosis clubbing or edema. Skin is without rash or lesion. Neurologic examination is difficult to assess. - Labs CBC & Chem 7: 01/05/24 05:00 01/05/24 05:00 Labs: Abnormal Lab Results - Last 24 Hours (Table) 01/04/24 01/05/24 01/05/24 Range/Units 17:40 00:16 05:00 WBC (3.8-10.6) k/uL RBC (4.30-5.90) m/uL Hgb (13.0-17.5) gm/dL Hct (39.0-53.0) % RDW (11.5-15.5) % Plt Count (150-450) k/uL ABG O2 Saturation (94-97) % Hemoglobin (13.0-17.5) gm/dL Chloride 116 H (98-107) mmol/L Carbon Dioxide 21 L (22-30) mmol/L BUN 46 H (9-20) mg/dL Glucose 118 H (74-99) mg/dL POC Glucose (mg/dL) 157 H 156 H (70-110) mg/dL Calcium 7.3 L (8.4-10.2) mg/dL Total Bilirubin 1.4 H (0.2-1.3) mg/dL Alkaline Phosphatase 210 H (38-126) U/L Total Protein 5.8 L (6.3-8.2) g/dL Albumin 1.9 L (3.5-5.0) g/dL 01/05/24 01/05/24 01/05/24 Range/Units 05:00 05:00 06:04 WBC 11.3 H (3.8-10.6) k/uL RBC 2.56 L (4.30-5.90) m/uL Hgb 7.6 L (13.0-17.5) gm/dL Hct 23.4 L (39.0-53.0) % RDW 18.2 H (11.5-15.5) % Plt Count 100 L (150-450) k/uL ABG O2 Saturation 98.3 H (94-97) % Hemoglobin 7.7 L (13.0-17.5) gm/dL Chloride (98-107) mmol/L Carbon Dioxide (22-30) mmol/L BUN (9-20) mg/dL Glucose (74-99) mg/dL POC Glucose (mg/dL) 121 H (70-110) mg/dL Calcium (8.4-10.2) mg/dL Total Bilirubin (0.2-1.3) mg/dL Alkaline Phosphatase (38-126) U/L Total Protein (6.3-8.2) g/dL Albumin (3.5-5.0) g/dL Assessment and Plan Assessment: Acute hypoxemic respiratory failure with failure to wean from mechanical ventilation, S/P tracheostomy/PEG tube on December 10, 2023. Respiratory failure, requiring reintubation, on November 25, 2023. Acute hypoxic respiratory failure requiring intubation/mechanical ventilation secondary to aspiration during EGD on 11/12/2023. Patient was extubated on 11/14/2023. S/P J-tube placement 11/16/2023, which continues to leak. Septic shock. Acute kidney injury secondary to sepsis, and ATN. Acute bowel obstruction, diagnosed via CT scan, November 24, 2023. Acute aspiration pneumonia. Acute aspiration during upper endoscopy most likely secondary to gastric outlet obstruction secondary to non-Hodgkin's lymphoma. Chronic abdominal pain, secondary to B-cell lymphoma. Unexplained weight loss most likely secondary non-Hodgkin's lymphoma involving the stomach. Paroxysmal atrial fibrillation. Chronic anemia. Plan: Plan dated November 21, 2023. The patient is seen today in room 517. The patient is on 3 L of oxygen. He continues on Zosyn. Continues on tube feeds. He had a CT scan of the abdomen and pelvis. His respiratory status is improved. We will continue to follow. Prognosis is guarded. Labs, x-rays, medications are reviewed. The patient is apparently scheduled for an outpatient PET scan. Plan dated November 22, 2023. The patient appears very stable. His is in the room with him. Labs, x- rays, and medications are reviewed. The patient continues on Zosyn. Resting room air saturation was 89%. Chest CT, revealed bilateral patchy and basilar infiltrates. We will continue to follow make recommendations along the way. Prognosis is guarded. The patient was diagnosed with a gastric outlet obstruction, secondary to non-Hodgkin's lymphoma. Plan dated November 23, 2023. The patient is seen today in room 517. He is resting comfortably. He continues on saline at 10 cc an hour. He is getting tube feedings with Pivot at 20 cc an hour. He has been weaned down to 2 L of oxygen. He continues on Zosyn. Labs, x-rays, and all medications are reviewed. Prognosis is guarded. We will continue to follow. Plan dated November 24, 2023. The patient will be admitted to the intensive care unit. I believe he deserves to be an ICU patient. I did speak to the surgeon. Labs, x-rays, and medications are reviewed. No additional recommendations are made. Prognosis is guarded. The patient has now been in the hospital for 12 days. We will cont inue to follow. He continues on Zosyn. Plan dated December 14, 2023. The patient is seen today in room 253. Currently, the patient is on the ventilator. He will have another PSV/CPAP trial. Apparently yesterday, he went for about 2-1/2 hours before he required to be placed back on the ventilator. The patient is getting saline at 10 cc an hour, and Nepro tube feedings at 50 cc an hour, which is goal. The patient had a fever, and will be recultured. In addition, the midline incision in the abdomen, shows some evidence of purulence, and will have a surgeon, take a look at that. Currently, the patient is not on any antibiotics. We will recheck a procalcitonin level. One of the family members was in the room, and was updated. Plan dated December 15, 2023. The patient actually spent about 6 hours on pressor support yesterday. The patient will have another spontaneous breathing trial today. The patient remains off of all sedation. He is getting Ativan and Dilaudid as needed. He is receiving tube feedings at goal. Labs, x-rays, and medications are reviewed. The repeat procalcitonin level was elevated at 1.92. We added Zosyn empirically. He had pancultures done yesterday. Labs, x-rays, and all medications are reviewed. Prognosis is guarded. An update was given to the daughter and to the right. Dictation was produced using [employer] software. Please excuse any grammatical, word or spelling errors. Plan dated December 30, 2023. The patient is seen today in room 253. The patient has now been in the hospital for 48 days. He was admitted way back on November 11. The patient currently is not ready to be weaned, given his high respiratory rate, and high minute volume. The patient is converted back to volume assist-control. In addition, the patient continues on Zerbaxa, Eraxis, and daptomycin, because of recent infections, including Pseudomonas, and Citrobacter, as well as Staphylococcus. Labs, x-rays, and medications are reviewed. The patient will continue on a small dose of propofol, Dilaudid as needed, and Ativan. Dexmedetomidine which is currently running was to be discontinued. Additional recommendations and suggestions are forthcoming. Prognosis is poor in my opinion. The patient remains a full code. The remains hopeful. Dictation was produced using [employer] software. Please excuse any grammatical, word or spelling errors. Plan dated December 31, 2023. The patient is seen today in room 253. Family members are at the bedside. After observing the patient on the ventilator, for period of time, it was clear to me, the patient was not synchronous with the ventilator. For that reason, we switched from volume assist-control, to pressure regulated volume control or VC plus. The patient had a inspiratory time of 0.8 seconds, and a targeted tidal volume of 450 cc. Everything else stayed the same. After switching, the patient's respiratory rate came down, as did his minute volume. He appeared much more comfortable. Labs, x-rays, medications are reviewed. The patient continues on Zerbaxa, Eraxis, and daptomycin. We will continue to follow. Prognosis is guarded. No additional recommendations are made. The patient is on propofol at 40 mcg/kg/min. I have asked the nurses to use both Ativan every 6 hours, and Dilaudid every 2 hours as needed, to see if we can get him on a small dose of propofol so that we can send the patient to long-term acute care facility. Prognosis is guarded. Dictation was produced using [employer] dictation software. Please excuse any grammatical, word or spelling errors. Plan dated January 01, 2024. The patient is seen today in room 253. I had a long conversation with the patient's family yesterday. It was encouraged, by the primary service, Dr. Rowe. Dr. Rowe also talked to the family about CODE STATUS, and the possibility of a palliative care consult or hospice consultation. The patient is chronically and critically ill, but stable. The patient remains on the mechanical ventilator, and is not able to be weaned at this time. Previous attempts at weaning, has caused significant increases in respiratory rate, significant increases in minute volume, and disruptions of his vital signs. The patient continues on Zerbaxa, daptomycin, and Eraxis. The patient is on a relatively smaller dose of propofol at 15 mcg/kg/min. I have encouraged the nurse to wean that down even further. In addition to propofol, the patient is receiving Ativan, and Dilaudid as needed. Labs, x-rays, medications are reviewed. The patient could be considered for possible discharge to long-term acute care facility or select specialty. Plan dated January 02, 2024. I have ongoing discussions with the family. The patient is doing very poorly in my opinion, and is currently not weanable. The patient, could be transferred to a long-term acute care facility or specialized nursing facility. We are attempting to get his propofol dose down to a reasonable level. I did asked the nurses to make sure that the patient got his Dilaudid, and Ativan, as scheduled medications. The patient blood gases are excellent. pO2 is 90, pCO2 is 34, pH is 7.40. The patient remains on pressure regulated volume control modality of ventilation. Labs, x-rays, and all medications are reviewed. The patient is overall prognosis remains poor. The patient remains a full code patient. I did have a long talk with the patient's just a few days ago. Plan dated January 03, 2024. The patient is seen again in room 253. The , and one of the family members at the bedside. The patient continues on mechanical ventilation, and at this time, cannot be weaned. The patient is getting TPN at 90 cc an hour, propofol at 15 mcg/kg/min. The patient is receiving saline at 10 cc an hour. We were in contact with the infectious disease doctor. Daptomycin and Eraxis were discontinued. The patient is on day #6 of 10, on Zerbaxa. Metoprolol and midodrine were discontinued from the [facility]. The patient's insurance denied transfer to a long-term acute care facility twice now. Labs, x-rays, medications are reviewed. The patient is overall prognosis is very poor. Phuc tapia's peak airway pressure is 19 cm of water. The Plateau pressure is 11 cm of water. We will continue to follow the patient, make recommendations along the way. I have had ongoing discussions with the patient's . Plan dated January 04, 2024. The patient is seen in room 253. The and daughter are in the room with the patient. She apparently did call [facility] yesterday, to see if they would except her . They apparently said that they had no beds, and did not currently except him. The patient continues on the mechanical ventilator. The patient's antibiotics have been pared down, to only Zerbaxa for another 3 to 4 days. The patient is down to propofol at 10 mcg/kg/min, TPN at 90 cc an hour, and saline at 10 cc an hour. The patient remains on VC plus mod ality of ventilation. Blood gases show pO2 of 81, pCO2 of 35, pH is 7.44. Labs, x-rays, medications are reviewed. Prognosis is guarded. We will continue to follow. Plan dated January 05, 2024. The patient will be given a spontaneous breathing trial, with pressure support of 10, CPAP of 5. I have asked the respiratory therapist to watch the patient carefully. Should he demonstrate any worsening respiratory status, high respiratory rate, low tidal volumes, high heart rate, diaphoresis, changes in blood pressure, or anything that would suggest fatigue, she should switch her back to the former modality. Labs, x-rays, medications are reviewed. I did spend some time talking to the patient's . I gave her an update. Apparently the patient's did call [facility], to see if he could be transferred. No beds were available. Also, he has been denied transfer to long-term acute care, by his insurance company, twice. Time with Patient: Greater than 30
--- NOTE | 2024-01-05 11:16 | P.PN ---
Progress Note - Text Progress Note Date: 01/05/24 HISTORY OF PRESENT ILLNESS: No acute events overnight. Patient remains in the ICU on mechanical ventilation. Has tracheostomy. Patient with positional cuff leak from the tracheostomy. Patient is holding his volumes. With sedation is tolerating ventilator. Patient continues to have leaking from the J-tube. J- tube is currently to drainage and has bilious output. Tube feeds are on hold. He has TPN for nutrition support. PHYSICAL EXAM: VITAL SIGNS: Reviewed. GENERAL: no acute distress. HEENT: Tracheostomy site clean dry and intact ABDOMEN: Soft. Nondistended. Midline incision with wound VAC in place and intact. J-tube with drainage around site. ASSESSMENT: 1. 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 Status post J-tube placement and revision for small bowel obstruction 2. Abdominal wound dehiscence status post wound VAC placement 3. Status post tracheostomy PLAN: -At this time no plan to exchange J-tube -Dulcolax added for constipation -Keep J-tube to drainage -Continue to hold tube feeds -Continue wound VAC to be changed Saturday/Saturday/Saturday -Continue TPN for nutrition support -Continue Triad barrier cream around J-tube -Overall prognosis is poor. Insurance denied transfer to half-way care facility again. Dick Ewign DO [facility] [phone]
[2024-01-05 11:52] LABS: Glucose,Whole Blood 151 mg/dL (70-110)
--- NOTE | 2024-01-05 13:00 | P.PN ---
Progress Note - Text Progress Note Date: 01/05/24 Chief Complaint: On the ventilator This is a 73-year-old patient, follows with Dr. Patricia Deal. Patient was seen this morning in the ICU. Patient's and daughter at the bedside. History obtained predominantly by the . Patient been having trouble with his stomach symptoms for close to 8 months. Patient underwent EGD by Dr. Sahara Cheng yesterday. Patient was found to have ulcerated around the antrum and obstruction to the pylorus. A lot of retained food was found. Patient aspirated. Had to be intubated and brought to the ICU. On a Levophed drip. FiO2 50 and a PEEP of 6. Patient had been losing weight lost about 25 pounds. Previously has a history of mitral valve prolapse. November 13: ICU. Patient remains on Precedex drip and propofol drip. Did not do well attempted extubation yesterday. Patient been off Levophed. NG tube to suction. Spoke to patient's and son at the bedside. Biopsy results awaited. Hemoglobin dropped to 6.9 this morning. Get a unit of blood. November 14: ICU. Up in a chair. Extubated yesterday. NG tube to suction. at the bedside. 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 Oncology was consulted. They have ordered a port. Results discussed with Dr. Sahara Cheng. General surgery was consulted for J-tube placement. Discussed with at the bedside. Patient getting IV fluids, IV Zosyn,. Patient has been on IV amiodarone for A-fib-back in sinus rhythm. Multiple PACs. Did receive unit of blood yesterday. Also IV ferric gluconate. November 15: ICU. Patient earlier today underwent jejunostomy tube placement and a port placement. Patient awake. Answering questions. NG tube to suction present. Updated patient's . Patient remains on IV amiodarone and IV Zosyn. November 16: ICU. Up in the chair. NG tube present but not to suction. Trickle feeding through the jejunostomy tube should be started today. Dietitian has been on board. IV Zosyn to continue. Patient's and his sister at the bedside. Discussed. Also spoke with Dr. Serna. Given patient has no other predisposing cardiac factors for the A-fib except acute illness. His LV function is normal. Left atrium is normal. He has already been loaded with IV amiodarone. Will switch him to oral Lopressor 12.5 twice daily. Hence will DC amiodarone. Patient yesterday had wheezing was put on bronchodilators steroids per pulmonary. November 17: Propped up in bed. NG tube was discontinued. Sinus rhythm. Remains NPO. Getting G-tube feeding at 40 cc an hour. Dietitian following. Get arrangements done for DC home tomorrow including tube feeding. Increase activity discussed with patient and elder daughter at the bedside. Still requiring oxygen. Incentive spirometry. November 18: Patient up in recliner. Earlier today spoke to social work professor David. Informed patient is rather weak and will be going to the [facility]. Looking at authorization. Denae came to the room and spoke to patient his and his daughter. They are very keen to take the patient home as 3 daughters all nurses and they will take care of him at home. Patient earlier today to abdominal cramping and some loose stools.'s tube feeding was held. Told the nurse to start back at the rate of 40 cc an hour. He was before the getting it at 55 cc an hour. Incentive spirometry was again emphasized. Patient remains on 4 L of oxygen. November 19: I saw the patient this morning. Hence I am in the evening. Morning was sitting with his sons. Has some edema. Lungs had crackles I gave him 40 mg of Lasix. He did make good urine. Tube feeding was held from the p revious evening of because of abdominal cramping. Acute abdominal series showed nonspecific bowel gas pattern and SBO to be ruled out. Family and patient was updated. Told him discharge will depend on day by day. Later this afternoon CT scanAnd abdomen pelvis done. Showed small bowel to be 3 point centimeter dilated. Some anasarca. Gastric findings. Gallstones. Later spoke to Dr. Irby from general surgery. They will further review and decide about further plan of action. Will give further dose of IV Lasix because of fluid overload from likely hypoalbuminemia and IV fluids previously received. Patient may take his pills by mouth. Total time spent today about 1 hour with over 40 minutes of discussion. Patient did state his breathing is better after Lasix this morning. November 20: Saw the patient this morning. was present. Patient received 2 more doses of Lasix. Diuresed well. Breathing much better. Lungs are sounding better. Discussed with Dr. Zepeda other surgeon. He is taking 3 cc out of the balloon and the gastrostomy tube. Started trickle feeding at 5 cc an hour. Will see how this does. Later in the day ran into the and the daughter again. Did update them on the same. Dilaudid was discontinued yesterday but morphine was ordered by surgery for patient having pain. Concerns about GI issues with that we will DC the morphine. As family does not want the same. November 21: Patient reclining bed. Tired. Several family members at the bedside. Including his and eldest daughter. Patient started on trickle feed yesterday at 5 cc an hour. This morning he has been on 10 cc an hour. Still having some loose stools. C. difficile was ordered. Patient on 2 L of nasal cannula. Has diuresed well. Will give an additional dose of Lasix today. If C. difficile is negative and the diarrhea is from the tube feedings we may have to use a fecal management system to keep him comfortable. Otherwise patient remains NPO. Dietitian is following the patient. Care was discussed length with patient the and daughter at the bedside. Questions answered. Liquid Tylenol has been added for abdominal pain. Avoid narcotics. Elevated white count likely from Solu-Medrol 11/23/2023--patient was feeling better today. Multiple family member at bedside. No issues overnight. Normal saline at 10 cc an hour, tube feeding at 20 cc an hour, remains on Zosyn, on 3 L oxygen. Afebrile. Heart rate 62, respiratory rate 16, blood pressure 114/67, saturating 91% on 3 L. WBCs 14.5, 9.7 hemoglobin. Platelet 242. BMP is unremarkable. Pulmonary and general surgery following. General surgery recommended to continue tube feeds at 20 cc/h. 11/24/2023--patient reported significant abdominal discomfort, also noted to have leak around G-tube. General surgery is following, evaluated the patient at bedside, adjusted tube feeds. Also reported having diarrhea, on 2 L oxygen, went up to 5 L. Blood pressure was low, 500 mL fluid bolus with close monitoring of respiratory status ordered. Currently on DuoNebs, Solu-Medrol, will continue Zosyn. Chest x-ray showed a left lower lobe infiltrate. Abdominal x-ray showed multiple air-fluid levels. CT abdomen showed multiple dilated small bowel loops, consistent with obstruction, pneumoperitoneum, cholelithiasis and ascites. WBCs 14.1, platelet 255, hemoglobin 8.9. NG tube in place. Family at bedside. patient transferred to SICU for close monitoring. 11/25/23--patient is currently in the ICU, required Levophed overnight due to low blood pressure, low urine output with creatinine trending up. Nephrology following. Clinical Reviewer also following. Patient remains n.p.o., NG tube in place, following NG tube insertion patient had total of 2 L output, J-tube was draining approximately 200 cc over last 8 hours, continues to have abdominal pain and abdominal tenderness. Patient on IV fluids. Currently on 4 L oxygen. WBCs 8.2, hemoglobin 12.3, platelet 188. Chest x-ray earlier today showed right sided port and a stable left lung airspace disease, NG tube in place. Patient currently on Zosyn, on IV Dilaudid for pain control, on IV Solu-Medrol. General surgery planning for OR today, started on TPN. 11/26/23--patient was seen and examined today. Patient is currently sedated, intubated on mechanical ventilation. Family at bedside. Patient underwent ex lap, abdominal washout, small bowel resection with new feeding jejunostomy tube placement yesterday, small bowel was noted to be perforated with significant contamination of abdominal cavity. Patient is currently on vancomycin and Zosyn. Creatinine went up to 2.85, nephrology following, recommended to continue IV fluids, avoid nephrotoxin Preserved EF on echocardiogram.. Patient currently on Levophed, vasopressin in the ICU for close monitoring. Patient is afebrile, heart rate 122, blood pressure 129/76, currently on mechanical ventilation, sedated. November 26: ICU. Intubated. FiO2 60 and a PEEP of 5. Drips include IV amiodarone. Heart rate was up early did get fired microgram of IV digoxin and 2.5 mg of IV Lopressor. Did drop her blood pressure bit. Urine output was low. Received 80 mg of IV Lasix. Ahmet to 150 cc. Other drips include IV propofol, vasopressin, Levophed. TPN was started yesterday. Antibiotics include IV Zosyn and vancomycin. Patient has a J-tube to drainage to gravity. Spoke to patient's younger daughter and at the bedside. Prognosis guarded. Continue current treatment plan. Chest x-ray shows right lower lobe consolidation. Small pleural effusion. November 27: ICU. Intubated. FiO2 55 and a PEEP of 5. Antibiotics include IV vancomycin. Drips include Levophed at a small dose, IV vasopressin, propofol, amiodarone. Patient converted to sinus rhythm this morning. Getting TPN and normal saline at 75 cc an hour. Urine output about 25 cc an hour. RAYA drain put out about 260 cc last 12 hours that is last clerk carrier. NG tube with bilious output. And also GI J-tube output to gravity. Spoke to patient's and daughter at the bedside. They understand patient still not out of the kee. Platelets have dropped-therefore probably Zosyn stopped. November 28: ICU. Intubated. FiO2 55 and a PEEP of 5. Patient is in sinus rhythm. Seen this morning. Due for dialysis catheter this afternoon. Urine output about 15 to 20 cc an hour. Patient is on IV Lasix 80 mg every 12. Saline is KVO. Drips include IV propofol vasopressin. Patient having significant output through the RAYA drain and the jejunostomy tube to drainage. Creatinine had been getting worse. Patient's at the bedside. Understands patient's remains critically ill. Hemoglobin is down to 7. Given that patient's pain hypotensive, and on vasopressin we will give a unit of blood with dialysis. Getting TPN antibiotic changed to IV meropenem November 29: ICU. Intubated. FiO2 55 and a PEEP of 5. Remains in sinus rhythm. Getting TPN. Dialyzed yesterday and this morning. About 1000 cc removed. Urine output about 50 cc an hour. Patient is on IV propofol. Off vasopressin. Still having significant output through the RAYA drain and jejunostomy tube. Patient received a second unit of blood yesterday. Patient's and daughter at the bedside. I did discuss guarded prognosis. Did asked them to revisit CODE STATUS.. Getting IV meropenem. November 30: ICU. Intubated. Did get a sedation holiday t today. Back on propofol. Getting TPN. Still getting IV Lasix. Fair urine output. Jejunostomy tube in last 8 hours was about 30 cc output. RAYA drain in the 8 hours had about 180 cc output. Telemetry shows sinus rhythm. NG tube has low intermittent suction with negative output. On the vent with FiO2 40 and a PEEP of 5. No hemodialysis today. Discussed with the and eldest daughter at the bedside. IV meropenem-patient's sputum had grown Citrobacter freundii and Pseudomonas aeruginosa. December 01: ICU. Intubated. Jejunostomy tube to gravity. Only 10 cc output in last 24 hours. RAYA drain. About 190 cc last 6 hours. Nasogastric tube to low intermittent suction. Minimal output. Patient is on a small dose of propofol 5 mics. Telemetry shows sinus rhythm. Patient started on small dose of Cleviprex this morning. Blood pressure. Getting TPN. FiO2 35 and PEEP of 5. Discussed with the at the bedside. Hemodialysis today December 02: ICU. Patient remains intubated. FiO2 35 PEEP of 5. Patient is on IV propofol. IV Cleviprex was discontinued yesterday. Also remains on TPN. Telemetry shows sinus rhythm. NG tube is good no output. Still significant output through the RAYA drain. Jejunostomy tube has minimal output. Patient had hemodialysis today 2 L of fluid was removed. Oral half liters yesterday. Patient getting a sedation holiday. General Surgery started the patient on trickle feeding at 10 cc an hour. I did speak to patient's at the bedside. Prognosis remains guarded but there is some improvement. December 03: ICU. Intubated. FiO2 35 PEEP of 5. Drips include IV propofol and Precedex. Getting TPN. Telemetry shows sinus rhythm. Remains on IV Lasix 80 mg twice a day. IV meropenem. Because patient gets easily agitated when transitioning off propofol he has been switched over to Precedex. For hemodialysis today. December 04: ICU. Intubated. FiO2 35 and a PEEP of 5. Patient been taken off propofol is on Precedex. Telemetry sinus rhythm. J-tube with minimal output. RAYA drain with decreased output. NG tube to suction minimal output. Family wanted to hold off trickle feeding until cleared by oncology. Which he did today. Trickle feeding will be started today. Spoke to patient's and one of the daughters at the bedside. Dr. Russ is spoken to the earlier this point they want to do further tracheostomy tube. October 4: ICU. Intubated. FiO2 35 PEEP of 5. Patient remains on Precedex and PPN. Patient's dialysis catheter was not functioning is getting another [address] Bobby this afternoon. Remains on IV meropenem. Has a RAYA drain in the jejunostomy tube to gravity. NG tube to low intermittent suction. No family at the bedside. December 06: ICU. Intubated. FiO2 35 PEEP of 5. RAYA drain putting out about approximately 120 cc per shift. Patient on IV Precedex. FiO2 35 PEEP of 5. Telemetry-sinus rhythm. Patient occasionally been put on small dose of Levophed specially for hemodialysis getting it today. Also started on midodrine for low blood pressure. Tolerating tube feeding at 10 cc an hour. Also had a bowel movement. Mentation has not improved. Even with sedation holiday. Neurology consulted. CT brain shows no acute process. December 07: ICU. Intubated. FiO2 35 PEEP of 5. Telemetry-sinus rhythm. NG tube to suction low intermittent minimal output. Getting TPN. Tube feeding at 20 cc an hour. RAYA drain averaging over 100 cc per shift. Remains on Precedex. EEG was done today. Discussed with at the bedside. Family is currently not inclined for tracheostomy tube today. Day 13 of being intubated December 08: ICU. Intubated. FiO2 35 PEEP of 5. Patient is put on back on propofol per district agent Dr. JIMENEZ. EEG did show some potential for spikes was put on Keppra by neurology. Telemetry shows sinus rhythm. NG tube to suction with no output. Tube feeding was put on hold because of questionable discharge on the site. Being restarted today. RAYA drain is 150 cc last 12-hour shift. Patient does open eyes. Family has decided to proceed with tracheostomy and surgery has been consulted for the same. Spoke to the at the bedside. For hemodialysis today. December 09: ICU. Intubated FiO2 35 PEEP of 5. Patient seen this morning. Pending tracheostomy placement this afternoon. Remains NPO. G-tube feeding was held overnight. RAYA drain putting out about 100 cc per shift. Received a unit of blood for hemoglobin of 6.6. On 25 mics of propofol. Getting TPN and meropenem. Spoke to the at the bedside. Patient became hypotensive with dialysis yesterday. Levophed had to be given. Only 800 cc were removed yesterday. No hemodialysis today. December 10: ICU . FiO2 35, PEEP 5. Tracheostomy was done yesterday by Dr. Ewing. G-tube feeding was started today at 10 cc an hour. Dietitian following. RAYA drain 12-hour shift overnight put out about 30 cc. Patient hemodialysis today about 1 L removed. Patient has a sacral stage II decub with a dressing. On propofol 20 mics. Spoke to at the bedside. TPN. Meropenem was discontinued yesterday. December 11: ICU. FiO2 35 PEEP of 5. Tracheostomy. NG tube was discontinued. No hemodialysis today. Telemetry shows sinus rhythm. J-tube feeding at 40 cc an hour. TPN was discontinued. Patient has been off propofol also. PICC line in place. Patient had a EEG done today. Spoke to patient's elder daughter at the bedside. May open eyes occasionally. Not really following commands December 12: 73-year-old white male with history of chronic abdominal pain for the last 8 months has been treated with Protonix 40 mg daily for the last 3 months with no improvement. Patient had a 22 pound weight loss in the last [address] of the abdomen and pelvis 3 weeks ago showed thickening of the antral wall with pathological adenopathy posterior to the stomach suspicious of neoplasm. Today the patient underwent elective upper endoscopy to evaluate further, patient received IV sedation by anesthesia endoscope was inserted into the mouth, esophagus was intubated without any difficulty there was evidence of large amount of liquid and solid food noted in the stomach suggestive of gastric outlet obstruction. Scope could not be advanced through the pylorus, however in the prepyloric area there was a large superficial ulceration identified with multiple biopsies were done from this area. The body cardia and fundus could not adequately visualize because of large amount of retained food in the s tomach. Scope was withdrawn back to the stomach and upon careful examination the mucosa of the antrum body and cardia as well as the fundus appeared normal. Procedure was being performed and biopsies were done patient threw up and subsequently became hypoxic there was clearly evidence of witnessed aspiration anesthesia intubated the patient, procedure was terminated, and the patient was transferred to the ICU, this consult was initiated. Patient is now on assist- control rate of 20 tidal volume 500 FiO2 70% PEEP of 10 ABG is pending, earlier ABG showed profound hypoxia patient is on propofol at 50 mcg/kg/min, next ABG is pending. Chest x-ray showed chronic changes without evidence of acute pulmonary disease. 12/14/2023 Patient remains in the ICU, generally weak Patient s/p tracheostomy G-tube in place Patient still has fever and mild tachycardia but tachycardia is improving, leukocytosis improving as well. Hemoglobin 8.1. Creatinine 3.0 and nephrology team on the case. He has mild transaminitis. He was getting Zosyn which is held now, nowCalcitonin is pending 12/14 Patient shon in the ICU, he is still encephalopathic and does not follow command. Neurology service following closely. He is status post tracheostomy. Also J-tube His abdomen looks soft and on exam he has mild coarse secretions. Has a Abarca catheter with clear urine His pro- Calcitonin is still high but trending down 3.0 down to 1.9 No fever this morning WBC slightly less at 16.3 Patient currently off antibiotic He is getting steroids IV Solu-Medrol which might contribute to his leukocytosis. Also he is on IV Keppra by neurologist 12/14 Patient remains confused in the ICU calm, he had a good night per family member and staff. Tracheostomy in place Patient has occasional coughing spells, patient also developed some partial wound dehiscence in his abdomen, surgery team are aware and are going to evaluate the patient Patient also has positive blood culture from 12/13: Gram-positive cocci in clusters. Patient received one-time dose of IV vancomycin. Patient also had fever 2 days ago, leukocytosis and total elevated pro- Calcitonin. Therefore we are going to consult infectious disease team. As his antibiotic Zosyn was stopped few days ago. Currently patient KVO He has good urine output December 16: ICU. Trach. Congested. Requiring suctioning. No hemodialysis today. Getting G-tube feeding at 50 cc an hour. FiO2 30 and a PEEP of 5. On IV Precedex. Eyes open. Does follow commands. Weakness in the limbs. Spoke to at the bedside. Sputum positive for Klebsiella oxytoca and Pseudomonas aeruginosa. December 17: ICU. On trach. Currently cough with increased secretions requiring suctioning. Adding scopolamine patch. Very much clear secretion. CT scan is showing right upper lobe lung abscess. G-tube feeding at 50 cc an hour. Hemodialysis today. RAYA drain putting out about 140 cc a shift. Serous. Has been midline incision wound dehiscence. Wound VAC was placed on it. Stage II ulcer. Patient is on Precedex drip 0.15 mics. Urine output is good about 6200 cc an hour. Spoke to the at the bedside. Patient currently not stable for transfer to LTAC. No limb movements. PT OT on the case. otherwise awake does follow simple commands by face December 18: ICU. Patient seen this afternoon. Because of pain getting IV Dilaudid. No nasal cannula on room air. Does move about his head. Telemetry shows sinus rhythm. FiO2 30 and a PEEP of 5. Patient started on scopolamine patch yesterday has decreased secretions today. Good urine output. Tube feeding at 60 cc an hour. Wound VAC on incisional would be high since in place. RAYA drain continues to make output. No hemodialysis today December 19: ICU. Patient was seen earlier today. FiO2 30 and a PEEP of 5. Sinus rhythm. Awake. Does follow with eyes. Tube feeding got obstructed tube feedings held for now. Increasing oozing from the incision drainage site. at the bedside. Wound VAC remains in place. Good urine output. Dialysis held today. December 20: ICU. Per nephrology no dialysis today. 1 L fluid bolus given. J- tube was replaced over the wire by Dr. Ewing from surgery. On Precedex 0.6 mcg. FiO2 30 and a PEEP of 5 on the vent. RAYA drain putting out of around 100 cc per shift. at the bedside. Drainage through the abdominal incision wound. CT scan abdomen showed tube placement in the small bowel. Stable large right lower quadrant mass with a fluid level. December 21: ICU. No dialysis today. Patient started on trickle feeding through the J-tube yesterday. He started leaking around the J-tube site. Tube feeding was held. Dressings were placed. Wound VAC remains on the incision. Still having output through the RAYA drain. Patient remains on Precedex 0.4 mcg. FiO2 30 and a PEEP of 5. Sinus rhythm. at the bedside. December 22: ICU. Patient was seen this morning today by me. No dialysis today. Patient's and daughter at the bedside. FiO2 30 and a PEEP of 5. Sinus rhythm. Still having significant secretions through the tracheostomy tube. On Precedex 0.4 mcg. Getting D5W IV fluids. Tube feeding remains to be on hold since yesterday. Still output of RAYA drain. Awaiting input from surgery. Discussed with the and daughter. December 23: ICU. Saw the patient this afternoon. Because of good output of urine dialysis has been discontinued. Telemetry shows sinus rhythm. FiO2 30 and a PEEP of 5. RAYA output has been around 8200 cc an hour. Good urine output. Patient does have very slight movement of the limbs. Wound VAC is putting out about 20 cc per shift. Yesterday when trickle feeding was started patient's J- tube drainage also started leaking around the insertion site. Tube feeding was held. Patient remains on IV Zosyn and Precedex at 0.3 mcg. I had a very lengthy discussion with patient's daughter and at the bedside overall guarded prognosis. Later surgery spoke to the family, and then the nurse called me that family was wanting transferred to [facility]. I spoke to Dr. Irby. They felt they could not offer anything more at this point. I did call the [facility] transfer inspector outside steam distribution. Gave them the reason for transfer. Later in the ICU nurse informed me through [employer] that [facility] had declined the transfer. Total time spent today about 50 minutes with over 30 minutes of discussion. December 24: ICU. Patient is doing not too well. Sinus rhythm. Drips include norepinephrine and IV propofol. Surgery did put 2 stitches around the J-tube insertion site. Started on TPN today. FiO2 30 PEEP of 5. Patient became hypothermic put on a Manjit hugger. Also hypoglycemic. Decreased urine output. IV fluids increased. Patient's son was at the bedside. I did speak to patient's eldest daughter outside in the waiting room. Did tell the patient doing very poorly. I did try to call the on the phone number she has gone home. Started an IV antifungal today. December 26, 2023 73-year-old white male with history of chronic abdominal pain for the last 8 months has been treated with Protonix 40 mg daily for the last 3 months with no improvement. Patient had a 22 pound weight loss in the last [address] of the abdomen and pelvis 3 weeks ago showed thickening of the antral wall with pathological adenopathy posterior to the stomach suspicious of neoplasm. Today the patient underwent elective upper endoscopy to evaluate further, patient received IV sedation by anesthesia endoscope was inserted into the mouth, esophagus was intubated without any difficulty there was evidence of large amount of liquid and solid food noted in the stomach suggestive of gastric outlet obstruction. Scope could not be advanced through the pylorus, however in the prepyloric area there was a large superficial ulceration identified with multiple biopsies were done from this area. The body cardia and fundus could not adequately visualize because of large amount of retained food in the stomach. Scope was withdrawn back to the stomach and upon careful examination the mucosa of the antrum body and cardia as well as the fundus appeared normal. Procedure was being performed and biopsies were done patient threw up and subsequently became hypoxic there was clearly evidence of witnessed aspiration anesthesia intubated the patient, procedure was terminated, and the patient was transferred to the ICU, this consult was initiated. Patient is now on assist- control rate of 20 tidal volume 500 FiO2 70% PEEP of 10 ABG is pending, earlier ABG showed profound hypoxia patient is on propofol at 50 mcg/kg/min, next ABG is pending. Chest x-ray showed chronic changes without evidence of acute pulmonary disease. 12/27/2023 Patient is seen and evaluated with family at bedside; remains in the ICU intubated and mechanically ventilated. - ABG showed a pO2 of 99 pCO2 31 pH of 7.44. -- Remains on Eraxis daptomycin and Zosyn patient is intermittently requiring Dilaudid, Ativan does not seem to help his agitation and restlessness. -- Continues to have leakage around the jejunostomy tube, and patient is undergoing the J-tube exchange today. Family is at bedside, seems to be quite anxious about his overall condition, and I explained to the that we are doing the best we can considering his critical illness situation and critical illness polyneuropathy. Patient is profoundly weak, and weaning the patient from mechanical ventilation is almost impossible. At least not at this point yet WBC count is 10.9 hemoglobin is 8.1 basic metabolic profile is normal BUN is 46 creatinine 1.90 patient has been off hemodialysis since the . Chest x- ray continues to show stable findings with right upper lobe opacity and right lower lobe opacity and possibly a small right-sided pleural effusion ----Continue ventilatory support, now on IMV mode rate of 16 with pressure support of 14 Continue Precedex and use Dilaudid 0.5 mg every 2-3 hours as needed. Nutritional support patient is now on TPN, Possible J-tube changed today for J- tube malfunction Continue antibiotics including daptomycin and Zosyn, Eraxis was added by infectious disease 12/28/2023 the patient is seen and evaluated in room at bedside; continues to be afebrile, the patient is on the ventilator through the trach FiO2 is currently stable at 30% no significant pleural effusion clinically patient on requiring any pressor support still having drainage around his jejunostomy tube patient dialysis catheter has been discontinued. Patient white count normalized to 7.6, creatinine is 1.51 patient with pneumonia with a sputum showing Citrobacter and Pseudomonas aeruginosa, the patient sputum repeat is still growing Citrobacter and Pseudomonas sensitive to the Pseudomonas is pending continue with Zosyn -patient did have a positive blood culture with staph epi that was oxacillin resistant as the patient did have a PICC line and the dialysis catheter he is on daptomycin repeat blood culture currently growing oxacillin sensitive staph epi, the patient dialysis catheter has been discontinued Has been sent for the culture -patient also have significant excoriation around his jejunostomy tube site which is still leaking Eraxis was added which will be continued as the patient fever pattern has improved and the patient white count has normalized once again discussed with the nursing staff to apply Triad cream which was discussed yesterday but not applied and monitor clinical course closely 12/29/2023 Patient is seen and evaluated with family members at bedside; remains intubated and mechanically ventilated -- ABG showed a pO2 of 105 pCO2 31 pH of 7.45. Remains on Precedex; multiple antibiotics and antifungal including Eraxis daptomycin and Zosyn. -- chest x-ray is showing improvement in his right upper lobe airspace disease/pulmonary abscess. Right lower lobe seems about the same with chronic opacity and possibly some small right-sided pleural effusion. --Family is at bedside, patient is arousable but does not follow any instructions. Gets extremely restless and agitated easily hence patient is receiving Dilaudid which seems to be working much better for this patient than benzodiazepines --possibly transfer the patient to a select care specialty. 12/30/2023 Evaluated in follow-up in the intensive care unit. He remains on the mechanical ventilator. Status post tracheostomy. There has been a decrease in the amount of leakage around the J-tube site he continues on a gravity flow. TPN is infusing tube feedings remain on hold at this time. No bowel movement reported for the last 5 days. X-ray today reveals extensive pleural parenchymal opacities throughout the right with at least a moderate pleural effusion. Mild patchy densities left mid and lower lung are also similar. Blood work reveals a white blood cell count 11.5, hemoglobin 8.1, platelet count of 78, sodium 142, potassium 4.2, BUN of 42, creatinine of 1.22, Phos of 2.3, magnesium 1.9. Patient continues on IV anidulafungin IV Zerbaxa IV daptomycin. Patient is currently sedated with propofol and also Precedex which is currently on hold at this time. December 31, 2023: ICU. Patient continues to do poorly. On propofol 35 mics. Also getting IV Dilaudid and IV Ativan.. Telemetry shows sinus rhythm. J-tube feeding has been discontinued. Significant output through the Abarca bag and around the G-tube site. Patient also putting out through the RAYA drain on the right side. Getting TPN and lipids. Patient is antimicrobial include iv aniedulefungin, IV ceftolozane/tazobactam, IV daptomycin Advance care planning [October 31, 2023] I met with patient's at the bedside. Went through in detail with patient is overall very poor clinical status. Chances of any meaningful recovery next to minimal. I also did mention that patient in my opinion was not stable to go to chronic ventilator setting. I suggested comfort care/hospice. I did not feel and why all honesty that patient is benefiting any further from the treatment we are giving him in fact causing probably more suffering. I also spoke to patient's daughter outside in the waiting room. Total time spent about 50 minutes with over 30 minutes of discussion. Later I called Dr. Luther JIMENEZ the district agent after he received a text that family was expressing that some physician expressed he was doing better and giving hope. I spoke to nurse Lemos in the evening and she and Dr. JIMENEZ did go and talk to patient's family at the bedside later. January 01, 2024: ICU. FiO2 30 and a PEEP of 5. Continues to have increased drainage at the G-tube site. Wound VAC in place over the incision. RAYA drain continues to put out excretions. Good urine output. Drips include IV propofol at 20 mics, also getting IV Ativan and Dilaudid. Patient also keeping getting TPN lipids. Spoke to the patient's at the bedside. No further questions. I did speak to Dr. Irby from general surgery. Hence it is both our impression again that changing the tube will not make any difference to the bigger picture. And probably futile. Dr. Irby will be speaking to the family today. David from social work professor did ask about of family meeting. I did reiterate that I spoken at length to the a few times and also the daughter. Dr. Jimenez also spoke to the and Dr. Irby will be speaking with the today. Prognosis remains to be very poor. I did tell the in my opinion probably the patient is not r a candidate for long-term facility. Will district agent Dr. Jimenez determine if the patient is a candidate for long-term chronic ventilator facility. January 02, 2024: ICU. FiO2 30 PEEP of 5. Telemetry sinus rhythm. Drips include propofol at 20 mics. Patient getting TPN lipids. Receiving 1 unit of packed red blood cell. Patient was having a breakdown around the tracheostomy stoma site. With a cuff leak. G-tube site is continues to have increasing output. Wound VAC in place. RAYA drains also having increasing output. Patient sister and daughter from [place] from out of town. Earlier they spoke at length with Dr. alford from general surgery. Prognosis remains poor. January 03, 2024: ICU. FiO2 30 PEEP of 5. On propofol. 50 mics. Getting TPN lipids. Sinus rhythm. Wound VAC in place. Drainage around the j-tube site. RAYA drain continues to drain. Patient somewhat sedated. at the bedside. Later social work professor David inform me that the surgical team Dr. Irby has suggested possible you have [facility], to which family is trying to obtain transferred to. Per Dr. Jimenez note patient has been decline by long-term care twice. Prognosis remains poor. at the bedside. Had no questions. Brother Nathan is present. January 04, 2024: ICU. FiO2 30 PEEP of 5. Propofol was held this morning. Getting TPN lipids. Sinus rhythm. Wound VAC remains in place. Continues to have drainage around the J-tube. RAYA drain continues to have output. at the bedside. She had no questions. Antibiotics in place. January 05, 2024: ICU. FiO2 30 PEEP of 5. Audibly sounding congested. Getting TPN lipids. Sinus rhythm. Wound VAC in place. Drainage around J-tube site. RAYA output continues. No family at bedside. Getting antibiotics. Lethargic The Active Medications Acetaminophen (Acetaminophen Suppository 650 Mg Supp) 650 mg RECTAL Q6HR PRN PRN Reason: Fever Albuterol/Ipratropium (Ipratropium-Albuterol 3 Ml Neb) 3 ml INHALATION RT-QID [facility] Last Admin: 01/05/24 11:21 Dose: 3 ml Albuterol/Ipratropium (Ipratropium-Albuterol 3 Ml Neb) 3 ml INHALATION RT-Q2H PRN PRN Reason: Shortness Of Breath Or Wheezing Last Admin: 12/03/23 03:45 Dose: 3 ml Bisacodyl (Bisacodyl 10 Mg Supp) 10 mg RECTAL DAILY [facility] Last Admin: 01/04/24 10:55 Dose: 10 mg Chlorhexidine Gluconate (Chlorhexidine Gluconate 15 Ml Cup) 15 ml MUCOUS MEM BID [facility] Last Admin: 01/05/24 09:36 Dose: 15 ml Darbepoetin Scooby (Darbepoetin Scooby 40 Mcg/0.4 Ml Syringe) 40 mcg SQ Q7D [facility] Last Admin: 12/31/23 14:23 Dose: 40 mcg Dextrose/Water (Dextrose 50% Syringe 50 Ml) 25 ml IVP PER PROTOCOL PRN; Protocol PRN Reason: Hypoglycemia Last Admin: 01/03/24 06:18 Dose: 25 ml Dextrose/Water (Dextrose 50% Syringe 50 Ml) 50 ml IVP PER PROTOCOL PRN; Protocol PRN Reason: Hypoglycemia Last Admin: 12/25/23 18:03 Dose: 50 ml Hydromorphone HCl (Hydromorphone 2 Mg/Ml 1 Ml Syringe) 1 mg IVP Q2H [facility] Last Admin: 01/05/24 12:52 Dose: 1 mg Propofol 1,000 mg/ IV Solution 100 mls @ 9.144 mls/hr IV .[id number] [facility]; Protocol Last Admin: 01/05/24 11:09 Dose: Not Given Ceftolozane/Tazobactam 3 gm/ (Sodium Chloride) 100 mls @ 100 mls/hr IV Q8H [facility]; Protocol Stop: 01/07/24 23:59 Last Admin: 01/05/24 11:06 Dose: 100 mls/hr Fat Emulsion Intravenous 250 (ml/ IV Solution) 250 mls @ 21 mls/hr IV TuThSa [facility] Last Admin: 01/04/24 09:16 Dose: 21 mls/hr Parenteral Vitamin Supplement 10 ml/ Zinc/Copper/Manganese/Selenium 1 ml/ Sodium Acetate 30 meq/ Magnesium Sulfate 1.25 gm/ Calcium Gluconate 1 gm/Potassium Phosphate 6 mmol/Amino Acids/Dextrose 2,040.5 mls @ 90 mls/hr IV .[id number] [facility] Insulin Aspart (Insulin Aspart (Novolog) 100 Unit/Ml Vial) 0 unit SQ 0000,0600,1200,1800 [facility]; Protocol Last Admin: 01/05/24 06:17 Dose: Not Given Levetiracetam (Levetiracetam Iv 500 Mg/5 Ml Vial) 250 mg IVP Q24HR [facility] Last Admin: 01/05/24 09:36 Dose: 250 mg Lorazepam (Lorazepam 2 Mg/Ml Inj) 1 mg IV Q6HR [facility] Last Admin: 01/05/24 06:24 Dose: 1 mg Miscellaneous Information (Potassium Replacement Protocol 1 Each Misc) 1 each MISCELLANE DAILY PRN; Protocol PRN Reason: Per Protocol Miscellaneous Information (Magnesium Replacement Protocol 1 Each Misc) 1 each MISCELLANE DAILY PRN; Protocol PRN Reason: Per Protocol Multi-Ingred Cream/Lotion/Oil/Oint (Hydrophilic Cream 180 Gm Tube) 1 applic TOPICAL BID [facility]; Protocol Last Admin: 01/05/24 09:43 Dose: 1 applic Multi-Ingredient Ointment (Zinc Oxide 20% Oint 28.4 Gm Tube) 1 applic TOPICAL BID PRN; Protocol PRN Reason: Skin Irritation Naloxone HCl (Naloxone 0.4 Mg/Ml 1 Ml Vial) 0.2 mg IV Q2M PRN PRN Reason: Opioid Reversal Pantoprazole Sodium (Pantoprazole 40 Mg/10 Ml Vial) 40 mg IVP BID [facility] Last Admin: 01/05/24 09:36 Dose: 40 mg Petrolatum (Zinc Oxide Paste (Z-Guard) 1 Applic) 1 applic TOPICAL BID [facility]; Protocol Last Admin: 01/05/24 09:44 Dose: 1 applic Past medical history to include: GERD Social history: . No smoking. Physical examination: VITAL SIGNS: 98.7, 87, 39, 132 x 78, 99% on vent GENERAL: Lethargic l. Right chest wall port. Getting TPN and lipids EYES: Pupils equal. Conjunctiva edouard l. HEENT: External appearance of nose and ears normal, tracheostomy-. NECK: JVD unable to assess; masses not palpable. HEART: First and second heart sounds are normal; edema, present LUNGS: Respiratory rate increased, decreased breath sounds ABDOMEN: Soft, some tenderness. Liver spleen not palpable, no masses palpable..jejunostomy tube-dressing in place, soaked. RAYA drain. Incision with stitches with - wound VAC PSYCH: Lethargic NEURO: Patient sedated INVESTIGATIONS, reviewed in the clinical context: January 04: White count 11.3 hemoglobin 7.6 platelets 100 potassium 3.9 creatinine 1.07 January 03: White count 13.4 hemoglobin 8.1 platelets 95 potassium 5.2 creatinine 1.1 albumin 1.8 Sputum culture [December 24] Citrobacter freundii, Pseudomonas aeruginosa Blood culture [December 24] Staphylococcus pettenkoferi December 24: White count 1.5 hemoglobin 8.2 platelets 106 potassium 3.8 BUN [address] chest abdomen without contrast [December 16] right upper lung cavitary lesion with air-fluid level in the posterior aspect and a larger cavitary lesion possibly within the lung parenchyma itself. Extending down towards the diaphragm additional airspace opacities in the left lung base. December 09: White count 26.1 hemoglobin 8.6 platelets 154 potassium 4.1 BUN 86 creatinine 3.31. Hemoglobin this morning was 6.6 prior to transfusion EEG-evidence of generalized cerebral dysfunction and sporadic intermittent h igher amplitude sharply contoured waves mainly bifrontal. Showing cortical irritability. 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 Serosal fibrous adhesions. Viable margins. Sputum culture: [November 25]: Citrobacter freundii. Pseudomonas aeruginosa November 20: White count 14.4 hemoglobin 8.8 platelets 229 potassium 4.1 BUN [address] scan abdomen [November 19] possible small bowel obstruction Stool: C. difficile negative November 15: WBC 13 hemoglobin 7.7 platelets 248 potassium 4.3 creatinine 0.87 2D echo: EF 55 to 60%. Kidneys bladder: Unremarkable November 13: White count 12 hemoglobin 6.9 platelets 276 potassium 4.4 creatinine 1.21 magnesium 1.8 iron 6 TIBC 365% saturation 1.64 transferrin 261 ferritin 34.6 B12 569 folate 4.4 November 11: Creatinine 0.86 EGD: Large amount of retained solid liquid food noted in the stomach. Large superficial gastric antral ulceration involving most of the antrum extending into the pylorus causing pyloric stenosis. Biopsies were obtained. Chest x-ray film personally reviewed by me-scattered infiltrates Assessment plan: -Aspiration pneumonia a bilateral initially from retained gastric contents mostly food and liquids, causing acute hypoxic respiratory failure: On presentation: Subsequent bacterial pneumonia sputum culture November 25: Citrobacter freundii, Pseudomonas aeruginosa. December 13: Klebsiella oxytoca, Pseudomonas aeruginosa IV meropenem-was received originally. Also received IV Zosyn. Currently receiving:iv aniedulefungin, IV ceftolozane/tazobactam, IV daptomycin -Breakdown of tracheostomy stoma site. Being followed by district agent -Sepsis with septicemia from above Antibiotics -Probable lung abscess larger 1 on the right side-patient cultures are growing Pseudomonas and Klebsiella oxytoca , daptomycin, other antibiotics -Acute pulmonary edema and fluid overload from hypoalbuminemic state and fluids from IV.:: Has been getting Lasix and dialysis: Both held -Altered mentation. Possibly encephalopathy. Could be delirium.: Not improving CT brain [December 06] nothing acute Neurology following EEG-evidence of generalized cerebral dysfunction and sporadic intermittent higher amplitude sharply contoured waves mainly bifrontal. Showing cortical irritability. Keppra was started on December 07 -Critical care poly- Pedro neuropathy: Slow to respond PT OT -Gallstones, asymptomatic -Small l bowel perforation at site of jejunostomy tube tip with balloon..: Portion of small bowel resected. On November 24. New J-tube was placed.- drainage to gravity:-Now discontinued December 19: J-tube blocked. J-tube replaced on December 20 over wire December 21: Leaking around the J-tube site. Feeding held December 23: J feeding was started yesterday evening but again started leaking increasingly around the J-tube site-feeding held again December 24: J-tube feeding has been held. Patient is currently having increased drainage from the J-tube site -Acute kidney injury. Possible ATN from hypotensive shock: Slow to respond Renal ultrasound unremarkable. Started on renal replacement therapy on November 28. Followed by nephrology-dialysis has been discontinued -Nutrition Jejunostomy tube placed November [address] Ewing Received TPN-this was discontinued. TPN lipids restarted on December 24 -Midline abdominal incision wound dehiscence Wound VAC placed -Acute recurrent atrial fibrillation-converted to sinus rhythm Received IV amiodarone. Cardiology following Lopressor -Acute hypoxic respiratory failure from aspiration pneumonia, status post ventilator assisted: Reintubated November 25. FiO2 35 PEEP of 5 Tracheostomy tube-by Dr. Zepeda on December 09 -Septic shock, recovered -Hypertension Patient started on Cleviprex-discontinued -Intermittent hypotension: Corrected Intermittent use of Levophed. 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 Also anemia of blood draw. Iron deficiency anemia Received total of 6 units of blood IV iron. -Severe thrombocytopenia. Would consider coagulation disorder secondary to infection., In the setting of underlying lymphoma.: Fluctuating with infection Hematology following. 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 difficile ruled out. -Large superficial gastric antral ulceration involving the gastric antrum extending into the pylorus with gastric outlet obstruction. 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 -Full code Patient off propofol. Other medication treatment plan to continue. No family at the bedside. Family contacted [facility] for transfer. Currently no update Past Medical History Past Medical History: GERD/Reflux History of Any Multi-Drug Resistant Organisms: None Reported Past Surgical History: Heart Catheterization Additional Past Surgical History / Comment(s): colonsocopy,spinal injection, Past Anesthesia/Blood Transfusion Reactions: No Reported Reaction Past Psychological History: No Psychological Hx Reported Smoking Status: Never smoker Past Alcohol Use History: None Reported Past Drug Use History: None Reported
[2024-01-05] MEDS: LORazepam 2 MG/ML INJ IV PRN (14:20)
--- NOTE | 2024-01-05 15:11 | P.PN ---
Subjective Progress Note Date: 01/05/24 Principal diagnosis: Reason for follow-up is pneumonia and bacteremia Patient is 73-year-old with male initial presentation to the hospital on 11/11/2021 for after the patient did have aspiration while undergoing elective endoscopy, diagnosed with a non-Hodgkin of, subsequently did have explained laparotomy for perforated small bowel abdominal washout and feeding jejunostomy tube patient did require dialysis catheter placement for dialysis during this hospital stay and tracheostomy for respiratory failure, infectious was consulted for fever. On today's evaluation that is 01/05/2024, patient has been afebrile, patient is intubated on the vent through the trach FiO2 has been stable at 30% no significant purulent secretion through the ET or any other changes reported by the nursing staff. Patient white count is down to 11.3, creatinine 1.07 Objective - Vital Signs Vital signs: Vital Signs Temp 98.6 F 01/05/24 08:00 Pulse 88 01/05/24 11:35 Resp 29 H 01/05/24 11:00 BP 130/85 01/03/24 02:00 Pulse Ox 96 01/05/24 11:00 FiO2 30 01/05/24 11:21 Intake & Output 01/04/24 01/05/24 01/05/24 19:59 06:59 18:59 Intake Total 815 Output Total 535 Balance 280 Weight Intake: IV 65 0.9 Normal Saline @ KVO 50 Ceftolozane/Tazobactam 3 gm In Sodium Chloride 0.9 % 100 ml @ 100 mls/hr IV Q8H [facility] Rx#:[id number] Fat Emulsion 20% 250 ml In Empty Bag 1 bag @ 21 mls/hr IV TuThSa [facility] Rx#: [id number] Mvi, Adult No.4 with Vit K 10 ml Trace (Conc-1Ml/ Dose) 1 ml Potassium Acetate 36 meq In Amino Acid 5%-D15w+Lytes*E* 2, 000 ml @ 90 mls/hr IV . [id number] [facility] Rx#:[id number] Normal Saline Pressure 15 Saline Intake, IV Titration 300 Amount Magnesium Sulfate-D5w Pmx 100 1 gm In Dextrose/Water 1 100ml.bag @ 100 mls/hr IVPB Q1H [facility] Rx#: [id number] Potassium Chloride 10 meq 200 In Water For Injection 1 100ml.bag @ 100 mls/hr IVPB Q1H [facility] Rx#: [id number] propofoL 1,000 mg In Empty Bag 1 bag @ 15 MCG/ KG/MIN 9.144 mls/hr IV . [id number] [facility] Rx#:[id number] TPN/PPN 450 Ceftolozane/Tazobactam 3 gm In Sodium Chloride 0.9 % 100 ml @ 100 mls/hr IV Q8H [facility] Rx#:[id number] Mvi, Adult No.4 with Vit 450 K 10 ml Trace (Conc-1Ml/ Dose) 1 ml Sodium Acetate 22 meq Magnesium Sulfate gm 1 gm Calcium Gluconate 1 gm Sodium Phosphate 6 mmol In Amino Acid 5%-D15w 2,000 ml @ 90 mls/hr IV .[id number] [facility] Rx#:[id number] Output: Drainage 80 Medial Abdomen Right Abdomen 80 Urine 455 Other: Voiding Method # Bowel Movements ABP, PAP, CO, CI - Last Documented Arterial Blood Pressure 127/57 - Exam GENERAL DESCRIPTION: An elderly male lying in bed in no distress RESPIRATORY SYSTEM: Unlabored breathing , decreased breath sounds at bases HEART: S1 S2 regular rate and rhythm , ABDOMEN: Soft , no tenderness EXTREMITIES: No edema feet - Labs CBC & Chem 7: 01/05/24 05:00 01/05/24 05:00 Labs: Abnormal Lab Results - Last 24 Hours (Table) 01/04/24 01/05/24 01/05/24 Range/Units 17:40 00:16 05:00 WBC (3.8-10.6) k/uL RBC (4.30-5.90) m/uL Hgb (13.0-17.5) gm/dL Hct (39.0-53.0) % RDW (11.5-15.5) % Plt Count (150-450) k/uL ABG O2 Saturation (94-97) % Hemoglobin (13.0-17.5) gm/dL Chloride 116 H (98-107) mmol/L Carbon Dioxide 21 L (22-30) mmol/L BUN 46 H (9-20) mg/dL Glucose 118 H (74-99) mg/dL POC Glucose (mg/dL) 157 H 156 H (70-110) mg/dL Calcium 7.3 L (8.4-10.2) mg/dL Total Bilirubin 1.4 H (0.2-1.3) mg/dL Alkaline Phosphatase 210 H (38-126) U/L Total Protein 5.8 L (6.3-8.2) g/dL Albumin 1.9 L (3.5-5.0) g/dL 01/05/24 01/05/24 01/05/24 Range/Units 05:00 05:00 06:04 WBC 11.3 H (3.8-10.6) k/uL RBC 2.56 L (4.30-5.90) m/uL Hgb 7.6 L (13.0-17.5) gm/dL Hct 23.4 L (39.0-53.0) % RDW 18.2 H (11.5-15.5) % Plt Count 100 L (150-450) k/uL ABG O2 Saturation 98.3 H (94-97) % Hemoglobin 7.7 L (13.0-17.5) gm/dL Chloride (98-107) mmol/L Carbon Dioxide (22-30) mmol/L BUN (9-20) mg/dL Glucose (74-99) mg/dL POC Glucose (mg/dL) 121 H (70-110) mg/dL Calcium (8.4-10.2) mg/dL Total Bilirubin (0.2-1.3) mg/dL Alkaline Phosphatase (38-126) U/L Total Protein (6.3-8.2) g/dL Albumin (3.5-5.0) g/dL 01/05/24 Range/Units 11:51 WBC (3.8-10.6) k/uL RBC (4.30-5.90) m/uL Hgb (13.0-17.5) gm/dL Hct (39.0-53.0) % RDW (11.5-15.5) % Plt Count (150-450) k/uL ABG O2 Saturation (94-97) % Hemoglobin (13.0-17.5) gm/dL Chloride (98-107) mmol/L Carbon Dioxide (22-30) mmol/L BUN (9-20) mg/dL Glucose (74-99) mg/dL POC Glucose (mg/dL) 151 H (70-110) mg/dL Calcium (8.4-10.2) mg/dL Total Bilirubin (0.2-1.3) mg/dL Alkaline Phosphatase (38-126) U/L Total Protein (6.3-8.2) g/dL Albumin (3.5-5.0) g/dL Assessment and Plan (1) Sepsis Current Visit: Yes Status: Acute Code(s): A41.9 - SEPSIS, UNSPECIFIED ORGA NISM SNOMED Code(s): 06817227 (2) Pneumonia Current Visit: Yes Status: Acute Code(s): J18.9 - PNEUMONIA, UNSPECIFIED ORGANISM SNOMED Code(s): 897340495 (3) Bacteremia Current Visit: Yes Status: Acute Code(s): R78.81 - BACTEREMIA SNOMED C ode(s): 4272843 Plan: 1patient with pneumonia with a sputum showing Citrobacter and Pseudomonas aeruginosa, the patient sputum repeat is still growing Citrobacter and Pseudomonas sensitive to the Pseudomonas that is a drug-resistant and resistant to Zosyn, patient is currently on Zerbaxa day number 8 out of 10 2-patient did have a positive blood culture with staph epi that was oxacillin resistant as the patient did have a PICC line and the dialysis catheter with concern for a line related infection with a suspected line removed repeat blood culture has been negative and the patient has received adequate daptomycin therapy daptomycin has been discontinued 3-patient also have significant excoriation around his jejunostomy tube site which is still leaking local care with Triad cream 4the patient also have elevated white count and the patient has been on TPN and significant excoriation around his jejunostomy tube site concerning for fungal infection so far blood culture has been negative for any resistant pathogen and received a 10-day course of Eraxis which was subsequent discontinued as of 01/03/2024 5patient has been afebrile and the patient white count is trending down down to 11.3 today will be monitored closely family at the bedside question answered Dictation was produced using [employer] dictation software. please excuse any grammatical, word or spelling errors. Time with Patient: Less than 30
[2024-01-05] MEDS: CLEVIDIPINE BUTYRATE 25 MG in EMPTY BAG 1 BAG IV SCH (17:30)
[2024-01-05 18:10] LABS: Glucose,Whole Blood 141 mg/dL (70-110)
[2024-01-06 00:25] LABS: Glucose,Whole Blood 181 mg/dL (70-110)
[2024-01-06] MEDS: MVI, ADULT NO.4 WITH VIT K 10 ML, TRACE (CONC-1ML/DOSE) 1 ML, SODIUM ACETATE 30 MEQ, MA... IV SCH (06:02)
[2024-01-06 06:05] LABS: Glucose,Whole Blood 140 mg/dL (70-110)
[2024-01-06 06:13] LABS: Anisocytosis Slight; Basophils # (A) 0.1 k/uL (0-0.2); Basophils % (A) 1 %; Eosinophils # (A) 0.1 k/uL (0-0.7); Eosinophils % (A) 1 %; HCT 23.7 % (39.0-53.0); HGB 7.6 gm/dL (13.0-17.5); Hypochromasia Moderate; Lymphocytes # (A) 2.1 k/uL (1.0-4.8); Lymphocytes % (A) 20 %; MCH 29.6 pg (25.0-35.0); MCV 92.5 fL (80.0-100.0); Mean Platelet Volume 9.3; Monocytes # (A) 0.5 k/uL (0-1.0); Monocytes % (A) 5 %; Neutrophils # (A) 7.7 k/uL (1.3-7.7); Neutrophils % (A) 73 %; Platelet Count 111 k/uL (150-450); RBC 2.57 m/uL (4.30-5.90); RDW 17.8 % (11.5-15.5); WBC 10.6 k/uL (3.8-10.6)
[2024-01-06 06:14] LABS: ABG Base Excess -3.2 mmol/L; ABG HCO3 21 mmol/L (21-25); ABG Oxygen Saturation 97.9 % (94-97); ABG PCO2 34 mmHg (35-45); ABG PO2 93 mmHg (83-108); ABG TCO2 22 mmol/L (19-24); Allen Test Performed? Yes
[2024-01-06 06:26] LABS: ALT 28 U/L (4-49); AST 29 U/L (17-59); African American GFR (CKD) >90 (>60 ml/min/1.73 sqM); Albumin 1.9 g/dL (3.5-5.0); Alkaline Phosphatase 222 U/L (38-126); Anion Gap 3 mmol/L; Blood Urea Nitrogen 44 mg/dL (9-20); Calcium 7.4 mg/dL (8.4-10.2); Carbon Dioxide 19 mmol/L (22-30); Chloride 115 mmol/L (98-107); Glucose 133 mg/dL (74-99); Non-African American GFR(CKD) 80 (>60 ml/min/1.73 sqM); Phosphorus 2.5 mg/dL (2.5-4.5); Potassium 3.5 mmol/L (3.5-5.1); Sodium 137 mmol/L (137-145); Total Bilirubin 1.2 mg/dL (0.2-1.3); Total Protein 5.8 g/dL (6.3-8.2)
[2024-01-06] MEDS ORDERED: Potassium Replacement Protocol 1 EACH MISC MISCELLANE PRN (07:03)
[2024-01-06] MEDS: POTASSIUM CHLORIDE 10 MEQ in WATER FOR INJECTION 1 100ML.BAG IVPB SCH (08:31)
--- NOTE | 2024-01-06 09:44 | P.PN ---
Subjective Patient is seen in follow-up for acute kidney injury. Patient underwent exploratory laparotomy with small bowel obstruction NG tube replacement Sep tem2023. Nonoliguric. Started on hemodialysis November 29, 2023. Last dialysis December 18, 2023. Status post tracheostomy December 10, 2023. Renal function has improved. Receiving TPN. Off vasopressors. Vital signs stable. General: Resting in bed. HEENT: Tracheostomy noted. LUNGS: Scattered rhonchi. HEART: Regular rate and rhythm. ABDOMEN: No drainage. EXTREMITITES: Trace edema. Objective - Vital Signs Vital signs: Vital Signs Temp 98.3 F 01/06/24 08:00 Pulse 100 01/06/24 08:45 Resp 21 01/06/24 08:45 BP 136/85 01/05/24 18:00 Pulse Ox 95 01/06/24 08:45 FiO2 30 01/06/24 08:22 Intake & Output 01/05/24 01/06/24 01/06/24 18:59 06:59 18:59 Intake Total 1232.308 4701 206 Output Total 1580 1695 260 Balance -43.000 1411 -54 Weight 98 kg Intake: IV 243 980 206 0.9 Normal Saline @ KVO 110 210 20 Ceftolozane/Tazobactam 3 100 200 gm In Sodium Chloride 0.9 % 100 ml @ 100 mls/hr IV Q8H [facility] Rx#:[id number] Normal Saline Pressure 33 30 6 Saline TPN 540 180 Intake, IV Titration 826.289 6396 Amount Clevidipine Butyrate 25 4.000 0 mg In Empty Bag 1 bag @ 1 MG/HR 2 mls/hr IV .Q24H [facility] Rx#:[id number] Magnesium Sulfate-D5w Pmx 100 1 gm In Dextrose/Water 1 100ml.bag @ 100 mls/hr IVPB Q1H [facility] Rx#: [id number] Mvi, Adult No.4 with Vit 2036 K 10 ml Trace (Conc-1Ml/ Dose) 1 ml Sodium Acetate 22 meq Magnesium Sulfate gm 1 gm Calcium Gluconate 1 gm Sodium Phosphate 6 mmol In Amino Acid 5%-D15w 2,000 ml @ 90 mls/hr IV .[id number] [facility] Rx#:[id number] Potassium Chloride 10 meq 200 In Water For Injection 1 100ml.bag @ 100 mls/hr IVPB Q1H [facility] Rx#: [id number] TPN/PPN 990 90 Mvi, Adult No.4 with Vit 990 90 K 10 ml Trace (Conc-1Ml/ Dose) 1 ml Sodium Acetate 22 meq Magnesium Sulfate gm 1 gm Calcium Gluconate 1 gm Sodium Phosphate 6 mmol In Amino Acid 5%-D15w 2,000 ml @ 90 mls/hr IV .[id number] [facility] Rx#:[id number] Output: Drainage 160 80 Medial Abdomen 50 Right Abdomen 110 80 Urine 1420 1695 180 Other: Voiding Method Indwelling Catheter Indwelling Catheter ABP, PAP, CO, CI - Last Documented Arterial Blood Pressure 149/61 - Labs CBC & Chem 7: 01/06/24 05:44 01/06/24 05:50 Labs: Abnormal Lab Results - Last 24 Hours (Table) 01/05/24 01/05/24 01/06/24 Range/Units 11:51 18:09 00:24 RBC (4.30-5.90) m/uL Hgb (13.0-17.5) gm/dL Hct (39.0-53.0) % RDW (11.5-15.5) % Plt Count (150-450) k/uL ABG pCO2 (35-45) mmHg ABG O2 Saturation (94-97) % Hemoglobin (13.0-17.5) gm/dL Chloride (98-107) mmol/L Carbon Dioxide (22-30) mmol/L BUN (9-20) mg/dL Glucose (74-99) mg/dL POC Glucose (mg/dL) 151 H 141 H 181 H (70-110) mg/dL Calcium (8.4-10.2) mg/dL Alkaline Phosphatase (38-126) U/L Total Protein (6.3-8.2) g/dL Albumin (3.5-5.0) g/dL 01/06/24 01/06/24 01/06/24 Range/Units 05:44 05:50 06:04 RBC 2.57 L (4.30-5.90) m/uL Hgb 7.6 L (13.0-17.5) gm/dL Hct 23.7 L (39.0-53.0) % RDW 17.8 H (11.5-15.5) % Plt Count 111 L (150-450) k/uL ABG pCO2 (35-45) mmHg ABG O2 Saturation (94-97) % Hemoglobin (13.0-17.5) gm/dL Chloride 115 H (98-107) mmol/L Carbon Dioxide 19 L (22-30) mmol/L BUN 44 H (9-20) mg/dL Glucose 133 H (74-99) mg/dL POC Glucose (mg/dL) 140 H (70-110) mg/dL Calcium 7.4 L (8.4-10.2) mg/dL Alkaline Phosphatase 222 H (38-126) U/L Total Protein 5.8 L (6.3-8.2) g/dL Albumin 1.9 L (3.5-5.0) g/dL 01/06/24 Range/Units 06:09 RBC (4.30-5.90) m/uL Hgb (13.0-17.5) gm/dL Hct (39.0-53.0) % RDW (11.5-15.5) % Plt Count (150-450) k/uL ABG pCO2 34 L (35-45) mmHg ABG O2 Saturation 97.9 H (94-97) % Hemoglobin 7.8 L (13.0-17.5) gm/dL Chloride (98-107) mmol/L Carbon Dioxide (22-30) mmol/L BUN (9-20) mg/dL Glucose (74-99) mg/dL POC Glucose (mg/dL) (70-110) mg/dL Calcium (8.4-10.2) mg/dL Alkaline Phosphatase (38-126) U/L Total Protein (6.3-8.2) g/dL Albumin (3.5-5.0) g/dL Assessment and Plan Plan: Assessment: 1. Acute kidney injury secondary to ATN secondary to septic shock. Creatinine 0.86 on admission and up to 5.38 dated November 29, 2023. Urine output improved, now nonoliguric. UA fairly benign. No hydronephrosis noted on imaging. Started on hemodialysis November 29, 2023 due to volume overload. Patient initially had a right femoral catheter placed which subsequently became occluded and a left tunneled femoral catheter was placed December 06, 2023. Renal function improving with creatinine improved to 0.95. 2. Perforated small bowel status post exploratory laparotomy with abdominal washout, small bowel resection and J-tube replacement November 25, 2023. 3. A-fib with RVR. s/p amiodarone drip. Also received digoxin this admission. 4. Recently diagnosed gastric B-cell lymphoma. 5. Septic shock. Likely abdominal source. On IV antibiotics. Blood culture positive for staph. ID following. Dialysis catheter removed. 6. Hypocalcemia secondary to acute kidney injury. Replaced. Improved. 7. Metabolic acidosis secondary to acute kidney injury and partially from compensation for underlying respiratory alkalosis. Improved. 8. Volume overload. Improved with diuresis and ultrafiltration. 9. Status post tracheostomy December 10, 2023. 10. Anemia. Component of chronic illness and acute blood loss. Received blood transfusions and DDAVP this admission. On Aranesp. 11. Respiratory alkalosis. 12. Hypernatremia from lack of oral water intake. Status post D5W. Sodium level now normal. Plan: Last dialysis December 18, 2023. No further need at this time. Dialysis catheter removed December 28, 2023. Receiving TPN. Avoid nephrotoxins. Preserved EF noted on echocardiogram. Case discussed with family present at bedside. Potassium being replaced. Lasix as needed.
--- NOTE | 2024-01-06 11:13 | CT ---
EXAMINATION TYPE: CT ChestAbdPelvis wo con CT DLP: 1113.8 mGycm, Automated exposure control for dose reduction was used. DATE OF EXAM: 01/06/2024 10:38 AM COMPARISON: CT abdomen and pelvis 12/21/2023, CT chest abdomen 12/17/2023 CLINICAL INDICATION:Male, 73 years old with history of Evaluate possible abscesses; PHH, possible abs cess Technique: Multiple axial images of the chest, abdomen, and pelvis were obtained without administrati on of intravenous or oral contrast. This significantly limits evaluation. Two-dimensional coronal and sagittal reconstructions were obtained. Findings: CHEST: LUNGS/ PLEURA: Left basilar patchy consolidation with air bronchograms. Trace left pleural effusion. . No pneumothorax. No significant change in right upper lung cavitary lesion with air-fluid level adele sures grossly 4.9 cm. And also within posterior right lower lung is a similar small to moderate size hydropneumothorax and possible cavitary lesion with air-fluid level. Difficult to measure due to lack of intravenous contrast and surrounding fluid. Right lower lobe patchy consolidation with air bronch ograms. AIRWAY: Tracheostomy cannula is in place.. HEART: Size within normal limits. Trace pericardial effusion. Small coronary artery calcifications. S mall aortic valvular calcifications. MEDIASTINUM: Few mildly prominent mediastinal lymph nodes measuring less than 1 cm in short axis. VASCULATURE: No aortic aneurysm. Left-sided PICC line with tip terminating at the superior cavoatria l junction. Right subclavian approach Mediport catheter with distal tip terminating at the lower cavo atrial junction. MUSCULOSKELETAL: No acute osseous abnormalities. SOFT TISSUES/LYMPH NODES: Diffuse anasarca. LOWER NECK: No significant findings. ABDOMEN: ABDOMEN LIVER: Unremarkable noncontrast appearance GALLBLADDER AND BILE DUCTS: Cholelithiasis with mild distended gallbladder measuring up to 4.1 cm in diameter. PANCREAS: Unremarkable noncontrast appearance SPLEEN: Unremarkable noncontrast appearance ADRENAL GLANDS: Unremarkable noncontrast appearance. KIDNEYS AND URETERS: No evidence of hydronephrosis. Nonobstructive abdomen 5 mm left renal calculus. Minimal bilateral perinephric fat stranding. PELVIS BLADDER: Nondistended with Abarca catheter in place. REPRODUCTIVE: Unremarkable. ABDOMEN & PELVIS STOMACH AND BOWEL: Periampullary duodenal diverticulum. Distal colonic diverticulosis without evidenc e for acute diverticulitis. Retained enteric contrast identified within the distal colon and rectum. The appendix is within normal limits. No evidence of bowel obstruction. PERITONEUM: No evidence of pneumoperitoneum. Trace free fluid within the bilateral paracolic gutter a nd pelvis. Organized fluid collection within the rectovesicular space measuring 2.9 x 3.1 cm (series 21, and 114). VASCULATURE: Mild atherosclerotic calcifications are present throughout the abdominal aorta and its b ranches. No abdominal aortic aneurysm. MUSCULOSKELETAL: No acute osseous abnormalities LYMPH NODES: Stable enlarged perigastric 2.6 cm lymph node. SOFT TISSUE/ABDOMINAL WALL: Diffuse anasarca. Surgical changes of the anterior abdominal wall with sk in only closure. Midline skin kelly identified. Left lower quadrant jejunostomy tube identified. Ri ght lower quadrant approach surgical drain identified with distal tip terminating in the left paracol ic gutter. Fat filled bilateral inguinal hernias. IMPRESSION: 1. Postsurgical changes with an organized 3.1 cm organized fluid collection within the rectovesicula r space concerning for abscess. 2. Stable enlarged perigastric 2.6 cm lymph node. 3. No significant change in right upper lung 4.9 cm fluid collection with air-fluid levels suspicio us for pulmonary abscess. Additional similar small to moderate sized right lung base multiloculated h ydropneumothorax and possible pulmonary abscess. Additional bibasilar consolidation with air bronchog cara likely representing pneumonia. [facility], , 01/06/2024 11:11 AM
[2024-01-06 11:26] LABS: Glucose,Whole Blood 164 mg/dL (70-110)
--- NOTE | 2024-01-06 12:25 | P.PN ---
Subjective Progress Note Date: 01/06/24 Principal diagnosis: Reason for follow-up is pneumonia and bacteremia Patient is 73-year-old with male initial presentation to the hospital on 11/11/2021 for after the patient did have aspiration while undergoing elective endoscopy, diagnosed with a non-Hodgkin of, subsequently did have explained laparotomy for perforated small bowel abdominal washout and feeding jejunostomy tube patient did require dialysis catheter placement for dialysis during this hospital stay and tracheostomy for respiratory failure, infectious was consulted for fever. On today's evaluation that is 01/06/2024, Patient is afebrile this morning patient remains to be debated on the vent through the trach FiO2 stable at 30% no significant purulent secretion through the ED still having drainage from the jejunostomy tube overall drainage decreased and less erythema no diarrhea reported. The patient white count is 10.6 creatinine 0.95 Objective - Vital Signs Vital signs: Vital Signs Temp 98.3 F 01/06/24 08:00 Pulse 95 01/06/24 09:45 Resp 25 H 01/06/24 09:45 BP 136/85 01/05/24 18:00 Pulse Ox 92 L 01/06/24 09:45 FiO2 30 01/06/24 08:22 Intake & Output 01/05/24 01/06/24 01/06/24 18:59 06:59 18:59 Intake Total 9162.800 9070 206 Output Total 1580 1695 260 Balance -43.000 1411 -54 Weight 98 kg Intake: IV 243 980 206 0.9 Normal Saline @ KVO 110 210 20 Ceftolozane/Tazobactam 3 100 200 gm In Sodium Chloride 0.9 % 100 ml @ 100 mls/hr IV Q8H [facility] Rx#:[id number] Normal Saline Pressure 33 30 6 Saline TPN 540 180 Intake, IV Titration 767.599 1194 Amount Clevidipine Butyrate 25 4.000 0 mg In Empty Bag 1 bag @ 1 MG/HR 2 mls/hr IV .Q24H [facility] Rx#:[id number] Magnesium Sulfate-D5w Pmx 100 1 gm In Dextrose/Water 1 100ml.bag @ 100 mls/hr IVPB Q1H [facility] Rx#: [id number] Mvi, Adult No.4 with Vit 2036 K 10 ml Trace (Conc-1Ml/ Dose) 1 ml Sodium Acetate 22 meq Magnesium Sulfate gm 1 gm Calcium Gluconate 1 gm Sodium Phosphate 6 mmol In Amino Acid 5%-D15w 2,000 ml @ 90 mls/hr IV .[id number] [facility] [place] Rx#:[id number] Potassium Chloride 10 meq 200 In Water For Injection 1 100ml.bag @ 100 mls/hr IVPB Q1H [facility] Rx#: [id number] TPN/PPN 990 90 Mvi, Adult No.4 with Vit 990 90 K 10 ml Trace (Conc-1Ml/ Dose) 1 ml Sodium Acetate 22 meq Magnesium Sulfate gm 1 gm Calcium Gluconate 1 gm Sodium Phosphate 6 mmol In Amino Acid 5%-D15w 2,000 ml @ 90 mls/hr IV .[id number] [facility] [place] Rx#:[id number] Output: Drainage 160 80 Medial Abdomen 50 Right Abdomen 110 80 Urine 1420 1695 180 Other: Voiding Method Indwelling Catheter Indwelling Catheter Indwelling Catheter ABP, PAP, CO, CI - Last Documented Arterial Blood Pressure 136/56 - Exam GENERAL DESCRIPTION: An elderly male lying in bed in no distress RESPIRATORY SYSTEM: Unlabored breathing , decreased breath sounds at bases HEART: S1 S2 regular rate and rhythm , ABDOMEN: Soft , no tenderness EXTREMITIES: No edema feet - Labs CBC & Chem 7: 01/06/24 05:44 01/06/24 05:50 Labs: Abnormal Lab Results - Last 24 Hours (Table) 01/05/24 01/05/24 01/06/24 Range/Units 11:51 18:09 00:24 RBC (4.30-5.90) m/uL Hgb (13.0-17.5) gm/dL Hct (39.0-53.0) % RDW (11.5-15.5) % Plt Count (150-450) k/uL ABG pCO2 (35-45) mmHg ABG O2 Saturation (94-97) % Hemoglobin (13.0-17.5) gm/dL Chloride (98-107) mmol/L Carbon Dioxide (22-30) mmol/L BUN (9-20) mg/dL Glucose (74-99) mg/dL POC Glucose (mg/dL) 151 H 141 H 181 H (70-110) mg/dL Calcium (8.4-10.2) mg/dL Alkaline Phosphatase (38-126) U/L Total Protein (6.3-8.2) g/dL Albumin (3.5-5.0) g/dL 01/06/24 01/06/24 01/06/24 Range/Units 05:44 05:50 06:04 RBC 2.57 L (4.30-5.90) m/uL Hgb 7.6 L (13.0-17.5) gm/dL Hct 23.7 L (39.0-53.0) % RDW 17.8 H (11.5-15.5) % Plt Count 111 L (150-450) k/uL ABG pCO2 (35-45) mmHg ABG O2 Saturation (94-97) % Hemoglobin (13.0-17.5) gm/dL Chloride 115 H (98-107) mmol/L Carbon Dioxide 19 L (22-30) mmol/L BUN 44 H (9-20) mg/dL Glucose 133 H (74-99) mg/dL POC Glucose (mg/dL) 140 H (70-110) mg/dL Calcium 7.4 L (8.4-10.2) mg/dL Alkaline Phosphatase 222 H (38-126) U/L Total Protein 5.8 L (6.3-8.2) g/dL Albumin 1.9 L (3.5-5.0) g/dL 01/06/24 Range/Units 06:09 RBC (4.30-5.90) m/uL Hgb (13.0-17.5) gm/dL Hct (39.0-53.0) % RDW (11.5-15.5) % Plt Count (150-450) k/uL ABG pCO2 34 L (35-45) mmHg ABG O2 Saturation 97.9 H (94-97) % Hemoglobin 7.8 L (13.0-17.5) gm/dL Chloride (98-107) mmol/L Carbon Dioxide (22-30) mmol/L BUN (9-20) mg/dL Glucose (74-99) mg/dL POC Glucose (mg/dL) (70-110) mg/dL Calcium (8.4-10.2) mg/dL Alkaline Phosphatase (38-126) U/L Total Protein (6.3-8.2) g/dL Albumin (3.5-5.0) g/dL Assessment and Plan (1) Sepsis Current Visit: Yes Status: Acute Code(s): A41.9 - SEPSIS, UNSPECIFIED ORGANISM SNOMED Code(s): 00818570 (2) Pneumonia Current Visit: Yes Status: Acute Code(s): J18.9 - PNEUMONIA, UNSPECIFIED ORGANISM SNOMED Code(s): 245591030 (3) Bacteremia Current Visit: Yes Status: Acute Code(s): R78.81 - BACTEREMIA SNOMED Code(s): 9538329 Plan: 1patient with pneumonia with a sputum showing Citrobacter and Pseudomonas aeruginosa, the patient sputum repeat is still growing Citrobacter and Pseudomonas sensitive to the Pseudomonas that is a drug-resistant and resistant to Zosyn, patient is currently on Zerbaxa day number 9 out of 10 2-patient did have a positive blood culture with staph epi that was oxacillin resistant as the patient did have a PICC line and the dialysis catheter with concern for a line related infection with a suspected line removed repeat blood culture has been negative and the patient has received adequate daptomycin therapy daptomycin has been discontinued 3-patient also have significant excoriation around his jejunostomy tube site which is still leaking local care with Triad cream 4the patient also have elevated white count and the patient has been on TPN and significant excoriation around his jejunostomy tube site concerning for fungal infection so far blood culture has been negative for any resistant pathogen and received a 10-day course of Eraxis which was subsequent discontinued as of 01/03/2024 5patient continues to be afebrile and the patient white count has normalized, patient will be monitored closely family at the bedside question answered Dictation was produced using [employer] dictation software. please excuse any grammatical, word or spelling errors. Time with Patient: Less than 30
--- NOTE | 2024-01-06 13:31 | P.PN ---
Subjective Progress Note Date: 01/06/24 01/06/2024, the patient is being seen for a follow-up. The patient remains off sedation. The patient is arousable. Remains profoundly weak and debilitated. He remains on the mechanical ventilator, assist-control mode with rate of 32, tidal volume of 450, FiO2 of 30% with a PEEP of 5. Chest x-ray shows extensive consolidation of the right lung and right upper lobe opacity with a previously described cavity. Blood gas shows a pH of 7.4 with a pCO2 of 34 pO2 of 93. The patient remains on KVO IV fluids. The patient is on TPN for nutritional support at a rate of 90 cc an hour. Fluid balance is +1.3 L over the past 24 hours. The patient is receiving Dilaudid for pain control. While off Dilaudid, he developed hypertension and overnight the patient was started on Cleviprex at 4 mg an hour. RAYA drain has produced around 40 cc over the past 24 hours. The J- tube is nonfunctional. The wound VAC is still in place. The blood work from today shows a white cell count of 10.6 and hemoglobin of 7.6 and a platelet count of 111. Renal function is normalized and the patient's BUN is 44 with a c reatinine of 0.9. Serum bicarb is at 19 with a chloride of 115 and a sodium level at 137. LFTs are normal with an alkaline phosphatase of 222. The sputum sample was positive for Citrobacter and Pseudomonas. The Pseudomonas aeruginosa was quite resistant and the patient is currently on a combination of ceftolozane and tazobactam. Afebrile. Hemodynamically stable. Cardiac rhythm is sinus. Objective - Vital Signs Vital signs: Vital Signs Temp 99.8 F H 01/06/24 00:00 Pulse 91 01/06/24 07:34 Resp 32 H 01/06/24 02:15 BP 136/85 01/05/24 18:00 Pulse Ox 96 01/06/24 02:15 FiO2 30 01/06/24 07:47 Intake & Output 01/05/24 01/06/24 01/06/24 18:59 06:59 18:59 Intake Total 6447.950 9628 Output Total 1580 1695 Balance -43.000 1411 Weight 98 kg Intake: IV 243 980 0.9 Normal Saline @ KVO 110 210 Ceftolozane/Tazobactam 3 100 200 gm In Sodium Chloride 0.9 % 100 ml @ 100 mls/hr IV Q8H [facility] Rx#:[id number] Normal Saline Pressure 33 30 Saline TPN 540 Intake, IV Titration 852.839 6088 Amount Clevidipine Butyrate 25 4.000 0 mg In Empty Bag 1 bag @ 1 MG/HR 2 mls/hr IV .Q24H [facility] Rx#:[id number] Magnesium Sulfate-D5w Pmx 100 1 gm In Dextrose/Water 1 100ml.bag @ 100 mls/hr IVPB Q1H [facility] Rx#: [id number] Mvi, Adult No.4 with Vit 2036 K 10 ml Trace (Conc-1Ml/ Dose) 1 ml Sodium Acetate 22 meq Magnesium Sulfate gm 1 gm Calcium Gluconate 1 gm Sodium Phosphate 6 mmol In Amino Acid 5%-D15w 2,000 ml @ 90 mls/hr IV .[id number] [facility] Rx#:[id number] Potassium Chloride 10 meq 200 In Water For Injection 1 100ml.bag @ 100 mls/hr IVPB Q1H [facility] Rx#: [id number] TPN/PPN 990 90 Mvi, Adult No.4 with Vit 990 90 K 10 ml Trace (Conc-1Ml/ Dose) 1 ml Sodium Acetate 22 meq Magnesium Sulfate gm 1 gm Calcium Gluconate 1 gm Sodium Phosphate 6 mmol In Amino Acid 5%-D15w 2,000 ml @ 90 mls/hr IV .[id number] [facility] Rx#:[id number] Output: Drainage 160 Medial Abdomen 50 Right Abdomen 110 Urine 1420 1695 Other: Voiding Method Indwelling Catheter Indwelling Catheter ABP, PAP, CO, CI - Last Documented Arterial Blood Pressure 134/60 - Exam No acute distress, arousable on Precedex and following simple commands, comf ortable, still on the mechanical ventilator. The patient has a tracheostomy tube in place. HEENT examination is grossly unremarkable. Mucous membranes are moist. No oral lesions.. The patient also has a tracheostomy tube in place and the patient has a #8 Shiley tracheostomy tube. Cardiac exam revealed the PMI to be normally situated and sized. The rhythm was regular and no extrasystoles were noted during several minutes of auscultation. The first and second heart sounds were normal and physiologic splitting of the second heart sound was noted. There were no murmurs, rubs, clicks, or gallops. The patient is in sinus tachycardia. Lungs reveal mild scattered rhonchi. No wheezes or crackles. Breath sounds equal. Diminished breath sound lung base bilaterally. Abdomen distended without bowel sounds. J-tube is noted. Mid abdominal wound is covered with a wound VAC and a RAYA drain in place and output is serosanguineous. Extremities are intact. No cyanosis clubbing trace edema lower extremities bilaterally Skin is without rash or lesion. The wound at the Mediport site is dry and the area has been sutured and the site is clean for now. Neurologic examination is brief but nonfocal. - Labs CBC & Chem 7: 01/06/24 05:44 01/06/24 05:50 Labs: Abnormal Lab Results - Last 24 Hours (Table) 01/05/24 01/05/24 01/06/24 Range/Units 11:51 18:09 00:24 RBC (4.30-5.90) m/uL Hgb (13.0-17.5) gm/dL Hct (39.0-53.0) % RDW (11.5-15.5) % Plt Count (150-450) k/uL ABG pCO2 (35-45) mmHg ABG O2 Saturation (94-97) % Hemoglobin (13.0-17.5) gm/dL Chloride (98-107) mmol/L Carbon Dioxide (22-30) mmol/L BUN (9-20) mg/dL Glucose (74-99) mg/dL POC Glucose (mg/dL) 151 H 141 H 181 H (70-110) mg/dL Calcium (8.4-10.2) mg/dL Alkaline Phosphatase (38-126) U/L Total Protein (6.3-8.2) g/dL Albumin (3.5-5.0) g/dL 01/06/24 01/06/24 01/06/24 Range/Units 05:44 05:50 06:04 RBC 2.57 L (4.30-5.90) m/uL Hgb 7.6 L (13.0-17.5) gm/dL Hct 23.7 L (39.0-53.0) % RDW 17.8 H (11.5-15.5) % Plt Count 111 L (150-450) k/uL ABG pCO2 (35-45) mmHg ABG O2 Saturation (94-97) % Hemoglobin (13.0-17.5) gm/dL Chloride 115 H (98-107) mmol/L Carbon Dioxide 19 L (22-30) mmol/L BUN 44 H (9-20) mg/dL Glucose 133 H (74-99) mg/dL POC Glucose (mg/dL) 140 H (70-110) mg/dL Calcium 7.4 L (8.4-10.2) mg/dL Alkaline Phosphatase 222 H (38-126) U/L Total Protein 5.8 L (6.3-8.2) g/dL Albumin 1.9 L (3.5-5.0) g/dL 01/06/24 Range/Units 06:09 RBC (4.30-5.90) m/uL Hgb (13.0-17.5) gm/dL Hct (39.0-53.0) % RDW (11.5-15.5) % Plt Count (150-450) k/uL ABG pCO2 34 L (35-45) mmHg ABG O2 Saturation 97.9 H (94-97) % Hemoglobin 7.8 L (13.0-17.5) gm/dL Chloride (98-107) mmol/L Carbon Dioxide (22-30) mmol/L BUN (9-20) mg/dL Glucose (74-99) mg/dL POC Glucose (mg/dL) (70-110) mg/dL Calcium (8.4-10.2) mg/dL Alkaline Phosphatase (38-126) U/L Total Protein (6.3-8.2) g/dL Albumin (3.5-5.0) g/dL Assessment and Plan Plan: Acute hypoxemic respiratory failure with failure to wean from mechanical ventilation, S/P tracheostomy on December 10, 2023. The patient has bilateral pneumonia with a cavitary infiltrate in the right upper lobe, secondary to Pseudomonas aeruginosa and Citrobacter and the patient is currently on a combination of ceftolozane/tazobactam. CAT scan of the chest done on 12/17/2023 was reviewed and the patient has a cavitating cyst/abscess in the posterior aspe ct of the right upper lobe in addition to patchy opacities bilaterally right more than left consistent with pneumonia,/gram-negative pneumonia Hospital-acquired right lung pseudomonal/Klebsiella pneumonia. Patient is currently on IV ceftolozane/tazobactam. Chest x-ray from remains unchanged. Re spiratory secretions are copious. The patient is having also frequent coughing episodes. 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 Small bowel perforation with abdominal contamination. The patient is status post expiratory laparotomy and small bowel resection and insertion of another jejunostomy tube. The patient jejunostomy is not functional and remains clogged and this was unclogged yesterday. Nevertheless, the tube itself is still malfunctioning. However, the abdominal wound is dehisced and is infected. RAYA drain output is serosanguineous. A wound VAC was applied to the anterior abdominal wall. Peritonitis secondary to above, recovered Septic shock secondary to above, the patient is currently off pressors Atrial fibrillation with rapid medical response, currently back into normal sinus rhythm . Acute kidney injury, off hemodialysis and renal function has normalized History of acute aspiration during upper endoscopy most likely secondary to gastric outlet obstruction secondary to non-Hodgkin's lymphoma. weight loss most likely secondary non-Hodgkin's lymphoma involving the stomach. Anemia of chronic disease, multifactorial, hemoglobin is stable for now Encephalopathy, multifactorial, stable Profound weakness in all 4 extremities and the patient is unable to move at this point in time. Motor function 0 out of 5 in all 4 extremities. Positive cough. Positive gag. 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 Malfunctioning of the J-tube, currently on TPN for nutritional support Hypertension, currently on Cleviprex Plan Continue ventilator support. Get the patient spontaneous breathing trials with a pressure support of 12 and a PEEP of 5 Chest x-ray findings are stable Obtain a CT scan of the chest and abdomen Continue IV ceftolozane/tazobactam The J-tube needs to be readdressed. It is nonfunctional and the patient is on TPN for nutritional support IV fluids to KVO Monitor fever pattern General Surgery is on the case regarding abdominal wound Start the patient on hydralazine and a gradual wean off the Cleviprex drip Condition remains extremely critical with poor prognosis based on the above Will continue to follow this patient along with the rest of the consultants. Condition is critical over the poor outcome based on the above. Evaluation was done more than 30 minutes. Time with Patient: Greater than 30
--- NOTE | 2024-01-06 13:33 | P.PN ---
Progress Note - Text Progress Note Date: 01/06/24 HISTORY OF PRESENT ILLNESS: No acute events overnight. Tube feeds are on hold. He has TPN for nutrition support. PHYSICAL EXAM: VITAL SIGNS: Reviewed. GENERAL: no acute distress. HEENT: Tracheostomy site clean dry and intact ABDOMEN: Soft. Nondistended. Midline incision with wound VAC in place and intact. J-tube with drainage around site. ASSESSMENT: 1. 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 Status post J-tube placement and revision for small bowel obstruction 2. Abdominal wound dehiscence status post wound VAC placement 3. Status post tracheostomy PLAN: -At this time no plan to exchange J-tube -Dulcolax added for constipation -Keep J-tube to drainage -Continue to hold tube feeds -Continue wound VAC to be changed Saturday/Saturday/Saturday -Continue TPN for nutrition support -Continue Triad barrier cream around J-tube -Overall prognosis is poor. Dick Ewing DO [facility] [phone]
--- NOTE | 2024-01-06 15:44 | P.PN ---
Progress Note - Text Progress Note Date: 01/06/24 Chief Complaint: On the ventilator This is a 73-year-old patient, follows with Dr. Patricia Deal. Patient was seen this morning in the ICU. Patient's and daughter at the bedside. History obtained predominantly by the . Patient been having trouble with his stomach symptoms for close to 8 months. Patient underwent EGD by Dr. Sahara Cheng yesterday. Patient was found to have ulcerated around the antrum and obstruction to the pylorus. A lot of retained food was found. Patient aspirated. Had to be intubated and brought to the ICU. On a Levophed drip. FiO2 50 and a PEEP of 6. Patient had been losing weight lost about 25 pounds. Previously has a history of mitral valve prolapse. November 13: ICU. Patient remains on Precedex drip and propofol drip. Did not do well attempted extubation yesterday. Patient been off Levophed. NG tube to suction. Spoke to patient's and son at the bedside. Biopsy results awaited. Hemoglobin dropped to 6.9 this morning. Get a unit of blood. November 14: ICU. Up in a chair. Extubated yesterday. NG tube to suction. at the bedside. 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 Oncology was consulted. They have ordered a port. Results discussed with Dr. Sahara Cheng. General surgery was consulted for J-tube placement. Discussed with at the bedside. Patient getting IV fluids, IV Zosyn,. Patient has been on IV amiodarone for A-fib-back in sinus rhythm. Multiple PACs. Did receive unit of blood yesterday. Also IV ferric gluconate. November 15: ICU. Patient earlier today underwent jejunostomy tube placement and a port placement. Patient awake. Answering questions. NG tube to suction present. Updated patient's . Patient remains on IV amiodarone and IV Zosyn. November 16: ICU. Up in the chair. NG tube present but not to suction. Trickle feeding through the jejunostomy tube should be started today. Dietitian has been on board. IV Zosyn to continue. Patient's and his sister at the bedside. Discussed. Also spoke with Dr. Serna. Given patient has no other predisposing cardiac factors for the A-fib except acute illness. His LV function is normal. Left atrium is normal. He has already been loaded with IV amiodarone. Will switch him to oral Lopressor 12.5 twice daily. Hence will DC amiodarone. Patient yesterday had wheezing was put on bronchodilators steroids per pulmonary. November 17: Propped up in bed. NG tube was discontinued. Sinus rhythm. Remains NPO. Getting G-tube feeding at 40 cc an hour. Dietitian following. Get arrangements done for DC home tomorrow including tube feeding. Increase activity discussed with patient and elder daughter at the bedside. Still requiring oxygen. Incentive spirometry. November 18: Patient up in recliner. Earlier today spoke to 7th grade social studies teacher David. Informed patient is rather weak and will be going to the [facility]. Looking at authorization. Denae came to the room and spoke to patient his and his daughter. They are very keen to take the patient home as 3 daughters all nurses and they will take care of him at home. Patient earlier today to abdominal cramping and some loose stools.'s tube feeding was held. Told the nurse to start back at the rate of 40 cc an hour. He was before the getting it at 55 cc an hour. Incentive spirometry was again emphasized. Patient remains on 4 L of oxygen. November 19: I saw the patient this morning. Hence I am in the evening. Morning was sitting with his sons. Has some edema. Lungs had crackles I gave him 40 mg of Lasix. He did make good urine. Tube feeding was held from the p revious evening of because of abdominal cramping. Acute abdominal series showed nonspecific bowel gas pattern and SBO to be ruled out. Family and patient was updated. Told him discharge will depend on day by day. Later this afternoon CT scanAnd abdomen pelvis done. Showed small bowel to be 3 point centimeter dilated. Some anasarca. Gastric findings. Gallstones. Later spoke to Dr. Irby from general surgery. They will further review and decide about further plan of action. Will give further dose of IV Lasix because of fluid overload from likely hypoalbuminemia and IV fluids previously received. Patient may take his pills by mouth. Total time spent today about 1 hour with over 40 minutes of discussion. Patient did state his breathing is better after Lasix this morning. November 20: Saw the patient this morning. was present. Patient received 2 more doses of Lasix. Diuresed well. Breathing much better. Lungs are sounding better. Discussed with Dr. Zepeda other surgeon. He is taking 3 cc out of the balloon and the gastrostomy tube. Started trickle feeding at 5 cc an hour. Will see how this does. Later in the day ran into the and the daughter again. Did update them on the same. Dilaudid was discontinued yesterday but morphine was ordered by surgery for patient having pain. Concerns about GI issues with that we will DC the morphine. As family does not want the same. November 21: Patient reclining bed. Tired. Several family members at the bedside. Including his and eldest daughter. Patient started on trickle feed yesterday at 5 cc an hour. This morning he has been on 10 cc an hour. Still having some loose stools. C. difficile was ordered. Patient on 2 L of nasal cannula. Has diuresed well. Will give an additional dose of Lasix today. If C. difficile is negative and the diarrhea is from the tube feedings we may have to use a fecal management system to keep him comfortable. Otherwise patient remains NPO. Dietitian is following the patient. Care was discussed length with patient the and daughter at the bedside. Questions answered. Liquid Tylenol has been added for abdominal pain. Avoid narcotics. Elevated white count likely from Solu-Medrol 11/23/2023--patient was feeling better today. Multiple family member at bedside. No issues overnight. Normal saline at 10 cc an hour, tube feeding at 20 cc an hour, remains on Zosyn, on 3 L oxygen. Afebrile. Heart rate 62, respiratory rate 16, blood pressure 114/67, saturating 91% on 3 L. WBCs 14.5, 9.7 hemoglobin. Platelet 242. BMP is unremarkable. Pulmonary and general surgery following. General surgery recommended to continue tube feeds at 20 cc/h. 11/24/2023--patient reported significant abdominal discomfort, also noted to have leak around G-tube. General surgery is following, evaluated the patient at bedside, adjusted tube feeds. Also reported having diarrhea, on 2 L oxygen, went up to 5 L. Blood pressure was low, 500 mL fluid bolus with close monitoring of respiratory status ordered. Currently on DuoNebs, Solu-Medrol, will continue Zosyn. Chest x-ray showed a left lower lobe infiltrate. Abdominal x-ray showed multiple air-fluid levels. CT abdomen showed multiple dilated small bowel loops, consistent with obstruction, pneumoperitoneum, cholelithiasis and ascites. WBCs 14.1, platelet 255, hemoglobin 8.9. NG tube in place. Family at bedside. patient transferred to SICU for close monitoring. 11/25/23--patient is currently in the ICU, required Levophed overnight due to low blood pressure, low urine output with creatinine trending up. Nephrology following. Independent Video Producer also following. Patient remains n.p.o., NG tube in place, following NG tube insertion patient had total of 2 L output, J-tube was draining approximately 200 cc over last 8 hours, continues to have abdominal pain and abdominal tenderness. Patient on IV fluids. Currently on 4 L oxygen. WBCs 8.2, hemoglobin 12.3, platelet 188. Chest x-ray earlier today showed right sided port and a stable left lung airspace disease, NG tube in place. Patient currently on Zosyn, on IV Dilaudid for pain control, on IV Solu-Medrol. General surgery planning for OR today, started on TPN. 11/26/23--patient was seen and examined today. Patient is currently sedated, intubated on mechanical ventilation. Family at bedside. Patient underwent ex lap, abdominal washout, small bowel resection with new feeding jejunostomy tube placement yesterday, small bowel was noted to be perforated with significant contamination of abdominal cavity. Patient is currently on vancomycin and Zosyn. Creatinine went up to 2.85, nephrology following, recommended to continue IV fluids, avoid nephrotoxin Preserved EF on echocardiogram.. Patient currently on Levophed, vasopressin in the ICU for close monitoring. Patient is afebrile, heart rate 122, blood pressure 129/76, currently on mechanical ventilation, sedated. November 26: ICU. Intubated. FiO2 60 and a PEEP of 5. Drips include IV amiodarone. Heart rate was up early did get fired microgram of IV digoxin and 2.5 mg of IV Lopressor. Did drop her blood pressure bit. Urine output was low. Received 80 mg of IV Lasix. Ahmet to 150 cc. Other drips include IV propofol, vasopressin, Levophed. TPN was started yesterday. Antibiotics include IV Zosyn and vancomycin. Patient has a J-tube to drainage to gravity. Spoke to patient's younger daughter and at the bedside. Prognosis guarded. Continue current treatment plan. Chest x-ray shows right lower lobe consolidation. Small pleural effusion. November 27: ICU. Intubated. FiO2 55 and a PEEP of 5. Antibiotics include IV vancomycin. Drips include Levophed at a small dose, IV vasopressin, propofol, amiodarone. Patient converted to sinus rhythm this morning. Getting TPN and normal saline at 75 cc an hour. Urine output about 25 cc an hour. RAYA drain put out about 260 cc last 12 hours that is last shift superintendent caustic cresylate. NG tube with bilious output. And also GI J-tube output to gravity. Spoke to patient's and daughter at the bedside. They understand patient still not out of the kee. Platelets have dropped-therefore probably Zosyn stopped. November 28: ICU. Intubated. FiO2 55 and a PEEP of 5. Patient is in sinus rhythm. Seen this morning. Due for dialysis catheter this afternoon. Urine output about 15 to 20 cc an hour. Patient is on IV Lasix 80 mg every 12. Saline is KVO. Drips include IV propofol vasopressin. Patient having significant output through the RAYA drain and the jejunostomy tube to drainage. Creatinine had been getting worse. Patient's at the bedside. Understands patient's remains critically ill. Hemoglobin is down to 7. Given that patient's pain hypotensive, and on vasopressin we will give a unit of blood with dialysis. Getting TPN antibiotic changed to IV meropenem November 29: ICU. Intubated. FiO2 55 and a PEEP of 5. Remains in sinus rhythm. Getting TPN. Dialyzed yesterday and this morning. About 1000 cc removed. Urine output about 50 cc an hour. Patient is on IV propofol. Off vasopressin. Still having significant output through the RAYA drain and jejunostomy tube. Patient received a second unit of blood yesterday. Patient's and daughter at the bedside. I did discuss guarded prognosis. Did asked them to revisit CODE STATUS.. Getting IV meropenem. November 30: ICU. Intubated. Did get a sedation holiday t today. Back on propofol. Getting TPN. Still getting IV Lasix. Fair urine output. Jejunostomy tube in last 8 hours was about 30 cc output. RAYA drain in the 8 hours had about 180 cc output. Telemetry shows sinus rhythm. NG tube has low intermittent suction with negative output. On the vent with FiO2 40 and a PEEP of 5. No hemodialysis today. Discussed with the and eldest daughter at the bedside. IV meropenem-patient's sputum had grown Citrobacter freundii and Pseudomonas aeruginosa. December 01: ICU. Intubated. Jejunostomy tube to gravity. Only 10 cc output in last 24 hours. RAYA drain. About 190 cc last 6 hours. Nasogastric tube to low intermittent suction. Minimal output. Patient is on a small dose of propofol 5 mics. Telemetry shows sinus rhythm. Patient started on small dose of Cleviprex this morning. Blood pressure. Getting TPN. FiO2 35 and PEEP of 5. Discussed with the at the bedside. Hemodialysis today December 02: ICU. Patient remains intubated. FiO2 35 PEEP of 5. Patient is on IV propofol. IV Cleviprex was discontinued yesterday. Also remains on TPN. Telemetry shows sinus rhythm. NG tube is good no output. Still significant output through the RAYA drain. Jejunostomy tube has minimal output. Patient had hemodialysis today 2 L of fluid was removed. Oral half liters yesterday. Patient getting a sedation holiday. General Surgery started the patient on trickle feeding at 10 cc an hour. I did speak to patient's at the bedside. Prognosis remains guarded but there is some improvement. December 03: ICU. Intubated. FiO2 35 PEEP of 5. Drips include IV propofol and Precedex. Getting TPN. Telemetry shows sinus rhythm. Remains on IV Lasix 80 mg twice a day. IV meropenem. Because patient gets easily agitated when transitioning off propofol he has been switched over to Precedex. For hemodialysis today. December 04: ICU. Intubated. FiO2 35 and a PEEP of 5. Patient been taken off propofol is on Precedex. Telemetry sinus rhythm. J-tube with minimal output. RAYA drain with decreased output. NG tube to suction minimal output. Family wanted to hold off trickle feeding until cleared by oncology. Which he did today. Trickle feeding will be started today. Spoke to patient's and one of the daughters at the bedside. Dr. Russ is spoken to the earlier this point they want to do further tracheostomy tube. October 4: ICU. Intubated. FiO2 35 PEEP of 5. Patient remains on Precedex and PPN. Patient's dialysis catheter was not functioning is getting another [address] Bobby this afternoon. Remains on IV meropenem. Has a RAYA drain in the jejunostomy tube to gravity. NG tube to low intermittent suction. No family at the bedside. December 06: ICU. Intubated. FiO2 35 PEEP of 5. RAYA drain putting out about approximately 120 cc per shift. Patient on IV Precedex. FiO2 35 PEEP of 5. Telemetry-sinus rhythm. Patient occasionally been put on small dose of Levophed specially for hemodialysis getting it today. Also started on midodrine for low blood pressure. Tolerating tube feeding at 10 cc an hour. Also had a bowel movement. Mentation has not improved. Even with sedation holiday. Neurology consulted. CT brain shows no acute process. December 07: ICU. Intubated. FiO2 35 PEEP of 5. Telemetry-sinus rhythm. NG tube to suction low intermittent minimal output. Getting TPN. Tube feeding at 20 cc an hour. RAYA drain averaging over 100 cc per shift. Remains on Precedex. EEG was done today. Discussed with at the bedside. Family is currently not inclined for tracheostomy tube today. Day 13 of being intubated December 08: ICU. Intubated. FiO2 35 PEEP of 5. Patient is put on back on propofol per photography teacher Dr. JIMENEZ. EEG did show some potential for spikes was put on Keppra by neurology. Telemetry shows sinus rhythm. NG tube to suction with no output. Tube feeding was put on hold because of questionable discharge on the site. Being restarted today. RAYA drain is 150 cc last 12-hour shift. Patient does open eyes. Family has decided to proceed with tracheostomy and surgery has been consulted for the same. Spoke to the at the bedside. For hemodialysis today. December 09: ICU. Intubated FiO2 35 PEEP of 5. Patient seen this morning. Pending tracheostomy placement this afternoon. Remains NPO. G-tube feeding was held overnight. RAYA drain putting out about 100 cc per shift. Received a unit of blood for hemoglobin of 6.6. On 25 mics of propofol. Getting TPN and meropenem. Spoke to the at the bedside. Patient became hypotensive with dialysis yesterday. Levophed had to be given. Only 800 cc were removed yesterday. No hemodialysis today. December 10: ICU . FiO2 35, PEEP 5. Tracheostomy was done yesterday by Dr. Ewing. G-tube feeding was started today at 10 cc an hour. Dietitian following. RAYA drain 12-hour shift overnight put out about 30 cc. Patient hemodialysis today about 1 L removed. Patient has a sacral stage II decub with a dressing. On propofol 20 mics. Spoke to at the bedside. TPN. Meropenem was discontinued yesterday. December 11: ICU. FiO2 35 PEEP of 5. Tracheostomy. NG tube was discontinued. No hemodialysis today. Telemetry shows sinus rhythm. J-tube feeding at 40 cc an hour. TPN was discontinued. Patient has been off propofol also. PICC line in place. Patient had a EEG done today. Spoke to patient's elder daughter at the bedside. May open eyes occasionally. Not really following commands December 12: 73-year-old white male with history of chronic abdominal pain for the last 8 months has been treated with Protonix 40 mg daily for the last 3 months with no improvement. Patient had a 22 pound weight loss in the last [address] of the abdomen and pelvis 3 weeks ago showed thickening of the antral wall with pathological adenopathy posterior to the stomach suspicious of neoplasm. Today the patient underwent elective upper endoscopy to evaluate further, patient received IV sedation by anesthesia endoscope was inserted into the mouth, esophagus was intubated without any difficulty there was evidence of large amount of liquid and solid food noted in the stomach suggestive of gastric outlet obstruction. Scope could not be advanced through the pylorus, however in the prepyloric area there was a large superficial ulceration identified with multiple biopsies were done from this area. The body cardia and fundus could not adequately visualize because of large amount of retained food in the s tomach. Scope was withdrawn back to the stomach and upon careful examination the mucosa of the antrum body and cardia as well as the fundus appeared normal. Procedure was being performed and biopsies were done patient threw up and subsequently became hypoxic there was clearly evidence of witnessed aspiration anesthesia intubated the patient, procedure was terminated, and the patient was transferred to the ICU, this consult was initiated. Patient is now on assist- control rate of 20 tidal volume 500 FiO2 70% PEEP of 10 ABG is pending, earlier ABG showed profound hypoxia patient is on propofol at 50 mcg/kg/min, next ABG is pending. Chest x-ray showed chronic changes without evidence of acute pulmonary disease. 12/14/2023 Patient remains in the ICU, generally weak Patient s/p tracheostomy G-tube in place Patient still has fever and mild tachycardia but tachycardia is improving, leukocytosis improving as well. Hemoglobin 8.1. Creatinine 3.0 and nephrology team on the case. He has mild transaminitis. He was getting Zosyn which is held now, nowCalcitonin is pending 12/14 Patient shon in the ICU, he is still encephalopathic and does not follow command. Neurology service following closely. He is status post tracheostomy. Also J-tube His abdomen looks soft and on exam he has mild coarse secretions. Has a Abarca catheter with clear urine His pro- Calcitonin is still high but trending down 3.0 down to 1.9 No fever this morning WBC slightly less at 16.3 Patient currently off antibiotic He is getting steroids IV Solu-Medrol which might contribute to his leukocytosis. Also he is on IV Keppra by neurologist 12/14 Patient remains confused in the ICU calm, he had a good night per family member and staff. Tracheostomy in place Patient has occasional coughing spells, patient also developed some partial wound dehiscence in his abdomen, surgery team are aware and are going to evaluate the patient Patient also has positive blood culture from 12/13: Gram-positive cocci in clusters. Patient received one-time dose of IV vancomycin. Patient also had fever 2 days ago, leukocytosis and total elevated pro- Calcitonin. Therefore we are going to consult infectious disease team. As his antibiotic Zosyn was stopped few days ago. Currently patient KVO He has good urine output December 16: ICU. Trach. Congested. Requiring suctioning. No hemodialysis today. Getting G-tube feeding at 50 cc an hour. FiO2 30 and a PEEP of 5. On IV Precedex. Eyes open. Does follow commands. Weakness in the limbs. Spoke to at the bedside. Sputum positive for Klebsiella oxytoca and Pseudomonas aeruginosa. December 17: ICU. On trach. Currently cough with increased secretions requiring suctioning. Adding scopolamine patch. Very much clear secretion. CT scan is showing right upper lobe lung abscess. G-tube feeding at 50 cc an hour. Hemodialysis today. RAYA drain putting out about 140 cc a shift. Serous. Has been midline incision wound dehiscence. Wound VAC was placed on it. Stage II ulcer. Patient is on Precedex drip 0.15 mics. Urine output is good about 6200 cc an hour. Spoke to the at the bedside. Patient currently not stable for transfer to LTAC. No limb movements. PT OT on the case. otherwise awake does follow simple commands by face December 18: ICU. Patient seen this afternoon. Because of pain getting IV Dilaudid. No nasal cannula on room air. Does move about his head. Telemetry shows sinus rhythm. FiO2 30 and a PEEP of 5. Patient started on scopolamine patch yesterday has decreased secretions today. Good urine output. Tube feeding at 60 cc an hour. Wound VAC on incisional would be high since in place. RAYA drain continues to make output. No hemodialysis today December 19: ICU. Patient was seen earlier today. FiO2 30 and a PEEP of 5. Sinus rhythm. Awake. Does follow with eyes. Tube feeding got obstructed tube feedings held for now. Increasing oozing from the incision drainage site. at the bedside. Wound VAC remains in place. Good urine output. Dialysis held today. December 20: ICU. Per nephrology no dialysis today. 1 L fluid bolus given. J- tube was replaced over the wire by Dr. Ewing from surgery. On Precedex 0.6 mcg. FiO2 30 and a PEEP of 5 on the vent. RAYA drain putting out of around 100 cc per shift. at the bedside. Drainage through the abdominal incision wound. CT scan abdomen showed tube placement in the small bowel. Stable large right lower quadrant mass with a fluid level. December 21: ICU. No dialysis today. Patient started on trickle feeding through the J-tube yesterday. He started leaking around the J-tube site. Tube feeding was held. Dressings were placed. Wound VAC remains on the incision. Still having output through the RAYA drain. Patient remains on Precedex 0.4 mcg. FiO2 30 and a PEEP of 5. Sinus rhythm. at the bedside. December 22: ICU. Patient was seen this morning today by me. No dialysis today. Patient's and daughter at the bedside. FiO2 30 and a PEEP of 5. Sinus rhythm. Still having significant secretions through the tracheostomy tube. On Precedex 0.4 mcg. Getting D5W IV fluids. Tube feeding remains to be on hold since yesterday. Still output of RAYA drain. Awaiting input from surgery. Discussed with the and daughter. December 23: ICU. Saw the patient this afternoon. Because of good output of urine dialysis has been discontinued. Telemetry shows sinus rhythm. FiO2 30 and a PEEP of 5. RAYA output has been around 8200 cc an hour. Good urine output. Patient does have very slight movement of the limbs. Wound VAC is putting out about 20 cc per shift. Yesterday when trickle feeding was started patient's J- tube drainage also started leaking around the insertion site. Tube feeding was held. Patient remains on IV Zosyn and Precedex at 0.3 mcg. I had a very lengthy discussion with patient's daughter and at the bedside overall guarded prognosis. Later surgery spoke to the family, and then the nurse called me that family was wanting transferred to [facility]. I spoke to Dr. Irby. They felt they could not offer anything more at this point. I did call the [facility] transfer steamtable worker. Gave them the reason for transfer. Later in the ICU nurse informed me through [employer] that [facility] had declined the transfer. Total time spent today about 50 minutes with over 30 minutes of discussion. December 24: ICU. Patient is doing not too well. Sinus rhythm. Drips include norepinephrine and IV propofol. Surgery did put 2 stitches around the J-tube insertion site. Started on TPN today. FiO2 30 PEEP of 5. Patient became hypothermic put on a Manjit hugger. Also hypoglycemic. Decreased urine output. IV fluids increased. Patient's son was at the bedside. I did speak to patient's eldest daughter outside in the waiting room. Did tell the patient doing very poorly. I did try to call the on the phone number she has gone home. Started an IV antifungal today. December 26, 2023 73-year-old white male with history of chronic abdominal pain for the last 8 months has been treated with Protonix 40 mg daily for the last 3 months with no improvement. Patient had a 22 pound weight loss in the last [address] of the abdomen and pelvis 3 weeks ago showed thickening of the antral wall with pathological adenopathy posterior to the stomach suspicious of neoplasm. Today the patient underwent elective upper endoscopy to evaluate further, patient received IV sedation by anesthesia endoscope was inserted into the mouth, esophagus was intubated without any difficulty there was evidence of large amount of liquid and solid food noted in the stomach suggestive of gastric outlet obstruction. Scope could not be advanced through the pylorus, however in the prepyloric area there was a large superficial ulceration identified with multiple biopsies were done from this area. The body cardia and fundus could not adequately visualize because of large amount of retained food in the stomach. Scope was withdrawn back to the stomach and upon careful examination the mucosa of the antrum body and cardia as well as the fundus appeared normal. Procedure was being performed and biopsies were done patient threw up and subsequently became hypoxic there was clearly evidence of witnessed aspiration anesthesia intubated the patient, procedure was terminated, and the patient was transferred to the ICU, this consult was initiated. Patient is now on assist- control rate of 20 tidal volume 500 FiO2 70% PEEP of 10 ABG is pending, earlier ABG showed profound hypoxia patient is on propofol at 50 mcg/kg/min, next ABG is pending. Chest x-ray showed chronic changes without evidence of acute pulmonary disease. 12/27/2023 Patient is seen and evaluated with family at bedside; remains in the ICU intubated and mechanically ventilated. - ABG showed a pO2 of 99 pCO2 31 pH of 7.44. -- Remains on Eraxis daptomycin and Zosyn patient is intermittently requiring Dilaudid, Ativan does not seem to help his agitation and restlessness. -- Continues to have leakage around the jejunostomy tube, and patient is undergoing the J-tube exchange today. Family is at bedside, seems to be quite anxious about his overall condition, and I explained to the that we are doing the best we can considering his critical illness situation and critical illness polyneuropathy. Patient is profoundly weak, and weaning the patient from mechanical ventilation is almost impossible. At least not at this point yet WBC count is 10.9 hemoglobin is 8.1 basic metabolic profile is normal BUN is 46 creatinine 1.90 patient has been off hemodialysis since the . Chest x- ray continues to show stable findings with right upper lobe opacity and right lower lobe opacity and possibly a small right-sided pleural effusion ----Continue ventilatory support, now on IMV mode rate of 16 with pressure support of 14 Continue Precedex and use Dilaudid 0.5 mg every 2-3 hours as needed. Nutritional support patient is now on TPN, Possible J-tube changed today for J- tube malfunction Continue antibiotics including daptomycin and Zosyn, Eraxis was added by infectious disease 12/28/2023 the patient is seen and evaluated in room at bedside; continues to be afebrile, the patient is on the ventilator through the trach FiO2 is currently stable at 30% no significant pleural effusion clinically patient on requiring any pressor support still having drainage around his jejunostomy tube patient dialysis catheter has been discontinued. Patient white count normalized to 7.6, creatinine is 1.51 patient with pneumonia with a sputum showing Citrobacter and Pseudomonas aeruginosa, the patient sputum repeat is still growing Citrobacter and Pseudomonas sensitive to the Pseudomonas is pending continue with Zosyn -patient did have a positive blood culture with staph epi that was oxacillin resistant as the patient did have a PICC line and the dialysis catheter he is on daptomycin repeat blood culture currently growing oxacillin sensitive staph epi, the patient dialysis catheter has been discontinued Has been sent for the culture -patient also have significant excoriation around his jejunostomy tube site which is still leaking Eraxis was added which will be continued as the patient fever pattern has improved and the patient white count has normalized once again discussed with the nursing staff to apply Triad cream which was discussed yesterday but not applied and monitor clinical course closely 12/29/2023 Patient is seen and evaluated with family members at bedside; remains intubated and mechanically ventilated -- ABG showed a pO2 of 105 pCO2 31 pH of 7.45. Remains on Precedex; multiple antibiotics and antifungal including Eraxis daptomycin and Zosyn. -- chest x-ray is showing improvement in his right upper lobe airspace disease/pulmonary abscess. Right lower lobe seems about the same with chronic opacity and possibly some small right-sided pleural effusion. --Family is at bedside, patient is arousable but does not follow any instructions. Gets extremely restless and agitated easily hence patient is receiving Dilaudid which seems to be working much better for this patient than benzodiazepines --possibly transfer the patient to a select care specialty. 12/30/2023 Evaluated in follow-up in the intensive care unit. He remains on the mechanical ventilator. Status post tracheostomy. There has been a decrease in the amount of leakage around the J-tube site he continues on a gravity flow. TPN is infusing tube feedings remain on hold at this time. No bowel movement reported for the last 5 days. X-ray today reveals extensive pleural parenchymal opacities throughout the right with at least a moderate pleural effusion. Mild patchy densities left mid and lower lung are also similar. Blood work reveals a white blood cell count 11.5, hemoglobin 8.1, platelet count of 78, sodium 142, potassium 4.2, BUN of 42, creatinine of 1.22, Phos of 2.3, magnesium 1.9. Patient continues on IV anidulafungin IV Zerbaxa IV daptomycin. Patient is currently sedated with propofol and also Precedex which is currently on hold at this time. December 31, 2023: ICU. Patient continues to do poorly. On propofol 35 mics. Also getting IV Dilaudid and IV Ativan.. Telemetry shows sinus rhythm. J-tube feeding has been discontinued. Significant output through the Abarca bag and around the G-tube site. Patient also putting out through the RAYA drain on the right side. Getting TPN and lipids. Patient is antimicrobial include iv aniedulefungin, IV ceftolozane/tazobactam, IV daptomycin Advance care planning [October 31, 2023] I met with patient's at the bedside. Went through in detail with patient is overall very poor clinical status. Chances of any meaningful recovery next to minimal. I also did mention that patient in my opinion was not stable to go to chronic ventilator setting. I suggested comfort care/hospice. I did not feel and why all honesty that patient is benefiting any further from the treatment we are giving him in fact causing probably more suffering. I also spoke to patient's daughter outside in the waiting room. Total time spent about 50 minutes with over 30 minutes of discussion. Later I called Dr. Luther JIMENEZ the photography teacher after he received a text that family was expressing that some physician expressed he was doing better and giving hope. I spoke to nurse Lemos in the evening and she and Dr. JIMENEZ did go and talk to patient's family at the bedside later. January 01, 2024: ICU. FiO2 30 and a PEEP of 5. Continues to have increased drainage at the G-tube site. Wound VAC in place over the incision. RAYA drain continues to put out excretions. Good urine output. Drips include IV propofol at 20 mics, also getting IV Ativan and Dilaudid. Patient also keeping getting TPN lipids. Spoke to the patient's at the bedside. No further questions. I did speak to Dr. Irby from general surgery. Hence it is both our impression again that changing the tube will not make any difference to the bigger picture. And probably futile. Dr. Irby will be speaking to the family today. David from 7th grade social studies teacher did ask about of family meeting. I did reiterate that I spoken at length to the a few times and also the daughter. Dr. Jimenez also spoke to the and Dr. Irby will be speaking with the today. Prognosis remains to be very poor. I did tell the in my opinion probably the patient is not r a candidate for long-term facility. Will photography teacher Dr. Jimenez determine if the patient is a candidate for long-term chronic ventilator facility. January 02, 2024: ICU. FiO2 30 PEEP of 5. Telemetry sinus rhythm. Drips include propofol at 20 mics. Patient getting TPN lipids. Receiving 1 unit of packed red blood cell. Patient was having a breakdown around the tracheostomy stoma site. With a cuff leak. G-tube site is continues to have increasing output. Wound VAC in place. RAYA drains also having increasing output. Patient sister and daughter from [place] from out of town. Earlier they spoke at length with Dr. alford from general surgery. Prognosis remains poor. January 03, 2024: ICU. FiO2 30 PEEP of 5. On propofol. 50 mics. Getting TPN lipids. Sinus rhythm. Wound VAC in place. Drainage around the j-tube site. RAYA drain continues to drain. Patient somewhat sedated. at the bedside. Later 7th grade social studies teacher David inform me that the surgical team Dr. Irby has suggested possible you have [facility], to which family is trying to obtain transferred to. Per Dr. Jimenez note patient has been decline by long-term care twice. Prognosis remains poor. at the bedside. Had no questions. Brother Nathan is present. January 04, 2024: ICU. FiO2 30 PEEP of 5. Propofol was held this morning. Getting TPN lipids. Sinus rhythm. Wound VAC remains in place. Continues to have drainage around the J-tube. RAYA drain continues to have output. at the bedside. She had no questions. Antibiotics in place. January 05, 2024: ICU. FiO2 30 PEEP of 5. Audibly sounding congested. Getting TPN lipids. Sinus rhythm. Wound VAC in place. Drainage around J-tube site. RAYA output continues. No family at bedside. Getting antibiotics. Lethargic January 06, 2024: ICU. FiO2 30 PEEP of 5. Patient is been off propofol since yesterday. Does move his head about. Try to open his eyes sometimes. Sinus rhythm. Blood pressure is running high yesterday. Started on Cleviprex. Hydralazine is being added. Continue to get TPN lipids. J-tube site remains excoriated. Wound VAC in place. RAYA output about 40 to 50 cc is a 12-hour shift. Patient elder daughter at the bedside. Eraxis was discontinued on January 02. Daptomycin is being discontinued by ID. Continue ceftolo'szone. CT abdomen pelvis done today: 3.1 cm organized fluid collection within the rectovesicular space concerning for abscess. No change in right upper lung 4.9 cm fluid collection with a fluid level. For possible pulmonary abscess. Moderate size right lung base multiloculated hydropneumothorax possibly abscess. Additional areas of air bronchograms. Active Medications Acetaminophen (Acetaminophen Suppository 650 Mg Supp) 650 mg RECTAL Q6HR PRN PRN Reason: Fever Albuterol/Ipratropium (Ipratropium-Albuterol 3 Ml Neb) 3 ml INHALATION RT-QID [facility] Last Admin: 01/06/24 15:00 Dose: 3 ml Albuterol/Ipratropium (Ipratropium-Albuterol 3 Ml Neb) 3 ml INHALATION RT-Q2H PRN PRN Reason: Shortness Of Breath Or Wheezing Last Admin: 12/03/23 03:45 Dose: 3 ml Bisacodyl (Bisacodyl 10 Mg Supp) 10 mg RECTAL DAILY [facility] Last Admin: 01/06/24 09:18 Dose: 10 mg Chlorhexidine Gluconate (Chlorhexidine Gluconate 15 Ml Cup) 15 ml MUCOUS MEM BID [facility] Last Admin: 01/06/24 09:17 Dose: 15 ml Darbepoetin Scooby (Darbepoetin Scooby 40 Mcg/0.4 Ml Syringe) 40 mcg SQ Q7D [facility] Last Admin: 12/31/23 14:23 Dose: 40 mcg Dextrose/Water (Dextrose 50% Syringe 50 Ml) 25 ml IVP PER PROTOCOL PRN; Protocol PRN Reason: Hypoglycemia Last Admin: 01/03/24 06:18 Dose: 25 ml Dextrose/Water (Dextrose 50% Syringe 50 Ml) 50 ml IVP PER PROTOCOL PRN; Protocol PRN Reason: Hypoglycemia Last Admin: 12/25/23 18:03 Dose: 50 ml Hydralazine HCl (Hydralazine Hcl 20 Mg/Ml 1 Ml Vial) 10 mg IVP Q6HR PRN PRN Reason: SBP >140 Hydromorphone HCl (Hydromorphone 2 Mg/Ml 1 Ml Syringe) 1 mg IVP Q2H [facility] Last Admin: 01/06/24 14:15 Dose: 1 mg Ceftolozane/Tazobactam 3 gm/ (Sodium Chloride) 100 mls @ 100 mls/hr IV Q8H [facility]; Protocol Stop: 01/07/24 23:59 Last Admin: 01/06/24 10:39 Dose: 100 mls/hr Fat Emulsion Intravenous 250 (ml/ IV Solution) 250 mls @ 21 mls/hr IV TuThSa [facility] Last Admin: 01/04/24 09:16 Dose: 21 mls/hr Parenteral Vitamin Supplement 10 ml/ Zinc/Copper/Manganese/Selenium 1 ml/ Sodium Acetate 30 meq/ Magnesium Sulfate 1.25 gm/ Calcium Gluconate 1 gm/Potassium Phosphate 6 mmol/Amino Acids/Dextrose 2,040.5 mls @ 90 mls/hr IV .[id number] [facility] Stop: 01/08/24 02:59 Last Admin: 01/06/24 06:02 Dose: Not Given Clevidipine 25 mg/ IV Solution 50 mls @ 2 mls/hr IV .Q24H [facility]; Protocol Last Admin: 01/06/24 02:17 Dose: 2 mg/hr, 4 mls/hr Parenteral Vitamin Supplement 10 ml/ Zinc/Copper/Manganese/Selenium 1 ml/ Sodium Acetate 16 meq/ Magnesium Sulfate 0. 625 gm/ Calcium Gluconate 0.5 gm/ Potassium Phosphate 3 mmol / Amino Acids/Dextrose 1,026.25 mls @ 90 mls/hr IV .BY DURATION [facility] Sodium Acetate 16 meq/Magnesium Sulfate 0.625 gm/Calcium Gluconate 0.5 gm/Potassium Phosphate 3 mmol/Amino Acids/Dextrose 1,015.25 mls @ 90 mls/hr IV .BY DURATION [facility] Insulin Aspart (Insulin Aspart (Novolog) 100 Unit/Ml Vial) 0 unit SQ 0000,0600,1200,1800 [facility]; Protocol Last Admin: 01/06/24 11:26 Dose: 2 unit Levetiracetam (Levetiracetam Iv 500 Mg/5 Ml Vial) 250 mg IVP Q24HR [facility] Last Admin: 01/06/24 09:17 Dose: 250 mg Lorazepam (Lorazepam 2 Mg/Ml Inj) 1 mg IV Q6HR PRN PRN Reason: Agitation Last Admin: 01/06/24 09:55 Dose: 1 mg Miscellaneous Information (Magnesium Replacement Protocol 1 Each Misc) 1 each MISCELLANE DAILY PRN; Protocol PRN Reason: Per Protocol Miscellaneous Information (Potassium Replacement Protocol 1 Each Misc) 1 each MISCELLANE DAILY PRN; Protocol PRN Reason: Per Protocol Multi-Ingred Cream/Lotion/Oil/Oint (Hydrophilic Cream 180 Gm Tube) 1 applic TOPICAL BID [facility]; Protocol Last Admin: 01/06/24 09:17 Dose: 1 applic Multi-Ingredient Ointment (Zinc Oxide 20% Oint 28.4 Gm Tube) 1 applic TOPICAL BID PRN; Protocol PRN Reason: Skin Irritation Naloxone HCl (Naloxone 0.4 Mg/Ml 1 Ml Vial) 0.2 mg IV Q2M PRN PRN Reason: Opioid Reversal Pantoprazole Sodium (Pantoprazole 40 Mg/10 Ml Vial) 40 mg IVP BID [facility] Last Admin: 01/06/24 09:17 Dose: 40 mg Petrolatum (Zinc Oxide Paste (Z-Guard) 1 Applic) 1 applic TOPICAL BID [facility]; Protocol Last Admin: 01/06/24 09:18 Dose: 1 applic Past medical history to include: GERD Social history: . No smoking. Physical examination: VITAL SIGNS: 98.2, 102, 33, 158 x 64, 94% on the vent GENERAL: Bit more awake. Getting TPN and lipids EYES: Pupils equal. Conjunctiva edouard l. HEENT: External appearance of nose and ears normal, tracheostomy-. NECK: JVD unable to assess; masses not palpable. HEART: First and second heart sounds are normal; edema, present LUNGS: Respiratory rate increased, decreased breath sounds ABDOMEN: Soft, some tenderness. Liver spleen not palpable, no masses palpable..jejunostomy tube-dressing in place, . RAYA drain. Incision with stitches with - wound VAC PSYCH: Lethargic NEURO: Patient sedated INVESTIGATIONS, reviewed in the clinical context: CT abdomen pelvis [January 05]: 3.1 cm organized fluid collection within the rectovesicular space concerning for abscess. No change in right upper lung 4.9 cm fluid collection with a fluid level. For possible pulmonary abscess. Moderate size right lung base multiloculated hydropneumothorax possibly abscess. Additional areas of air bronchograms. January 05: White count 10.6 hemoglobin 7.6 platelets 111 sodium 137 potassium 3.5 BUN 44 creatinine 0.95 January 03: White count 13.4 hemoglobin 8.1 platelets 95 potassium 5.2 creatinine 1.1 albumin 1.8 Sputum culture [December 24] Citrobacter freundii, Pseudomonas aeruginosa Blood culture [December 24] Staphylococcus pettenkoferi December 24: White count 1.5 hemoglobin 8.2 platelets 106 potassium 3.8 BUN [address] chest abdomen without contrast [December 16] right upper lung cavitary lesion with air-fluid level in the posterior aspect and a larger cavitary lesion possibly within the lung parenchyma itself. Extending down towards the diaphragm additional airspace opacities in the left lung base. December 09: White count 26.1 hemoglobin 8.6 platelets 154 potassium 4.1 BUN 86 creatinine 3.31. Hemoglobin this morning was 6.6 prior to transfusion EEG-evidence of generalized cerebral dysfunction and sporadic intermittent higher amplitude sharply contoured waves mainly bifrontal. Showing cortical irritability. 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 Serosal fibrous adhesions. Viable margins. Sputum culture: [November 25]: Citrobacter freundii. Pseudomonas aeruginosa November 20: White count 14.4 hemoglobin 8.8 platelets 229 potassium 4.1 BUN [address] scan abdomen [November 19] possible small bowel obstruction Stool: C. difficile negative November 15: WBC 13 hemoglobin 7.7 platelets 248 potassium 4.3 creatinine 0.87 2D echo: EF 55 to 60%. Kidneys bladder: Unremarkable November 13: White count 12 hemoglobin 6.9 platelets 276 potassium 4.4 creatinine 1.21 magnesium 1.8 iron 6 TIBC 365% saturation 1.64 transferrin 261 ferritin 34.6 B12 569 folate 4.4 November 11: Creatinine 0.86 EGD: Large amount of retained solid liquid food noted in the stomach. Large superficial gastric antral ulceration involving most of the antrum extending into the pylorus causing pyloric stenosis. Biopsies were obtained. Chest x-ray film personally reviewed by me-scattered infiltrates Assessment plan: -Aspiration and gram-negative bacterial pneumonia a bilateral initially from retained gastric contents mostly food and liquids, causing acute hypoxic respiratory failure: On presentation: Subsequent bacterial pneumonia sputum culture November 25: Citrobacter freundii, Pseudomonas aeruginosa. December 13: Klebsiella oxytoca, Pseudomonas aeruginosa IV meropenem-was received originally. Also received IV Zosyn. , IV ceftolozane/tazobactam, IV daptomycin-discontinued -Breakdown of tracheostomy stoma site. Being followed by photography teacher -Sepsis with septicemia from above Antibiotics - lung abscess larger 1 on the right side-patient cultures are growing Pseudomonas and Klebsiella oxytoca: Slow to respond , daptomycin, discontinued.IV ceftolozane/tazobactam -Acute pulmonary edema and fluid overload from hypoalbuminemic state and fluids from IV.:: Has been getting Lasix and dialysis: Both held -Altered mentation. Possibly encephalopathy. Could be delirium.: Not improvin g CT brain [December 06] nothing acute Neurology following EEG-evidence of generalized cerebral dysfunction and sporadic intermittent higher amplitude sharply contoured waves mainly bifrontal. Showing cortical irritability. Keppra was started on December 07 -Critical care poly- Pedro neuropathy: Slow to respond PT OT -Gallstones, asymptomatic -Small l bowel perforation at site of jejunostomy tube tip with balloon..: Portion of small bowel resected. On November 24. New J-tube was placed.- drainage to gravity:-Now discontinued December 19: J-tube blocked. J-tube replaced on December 20 over wire December 21: Leaking around the J-tube site. Feeding held December 23: J feeding was started yesterday evening but again started leaking increasingly around the J-tube site-feeding held again December 24: J-tube feeding has been held. Patient is currently having increased drainage from the J-tube site -Acute kidney injury. Possible ATN from hypotensive shock: Resolved Renal ultrasound unremarkable. Started on renal replacement therapy on November 28. Last hemodialysis on December 17. Being followed by an nephrology. Good urine output. -Nutrition Jejunostomy tube placed November [address] Ewing Received TPN-this was discontinued. TPN lipids restarted on December 24 -Lung abscess, not improving Antibiotics to continue. Pulmonary and ID following -Midline abdominal incision wound dehiscence Wound VAC placed -Acute recurrent atrial fibrillation-converted to sinus rhythm Received IV amiodarone. Cardiology following Lopressor -Acute hypoxic respiratory failure from aspiration pneumonia, status post ventilator assisted: Reintubated November 25. FiO2 35 PEEP of 5 Tracheostomy tube-by Dr. Zepeda on December 09 -Septic shock, recovered -Hypertension, recurrent Restarted Cleviprex-yesterday. Hydralazine added -Intermittent hypotension: Corrected Intermittent use of Levophed. 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 Also anemia of bloo d draw. Iron deficiency anemia Received total of 6 units of blood IV iron. -Severe thrombocytopenia. Would consider coagulation disorder secondary to infection., In the setting of underlying lymphoma.: Fluctuating with infection Hematology following. -Acute blood loss anemia, -Sacral stage II decub ulcer Dressing in place -Hypokalemia, multiple causes -Hypoglycemia -GERD PPI -Acute diarrhea secondary to tube feeding.: Resolved C. difficile ruled out. -Large superficial gastric antral ulceration involving the gastric antrum extending into the pylorus with gastric outlet obstruction. 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 -Full code Started on Cleviprex yesterday. Hydralazine added. CT scan chest abdomen pelvis noted. Prognosis remains poor. Past Medical History Past Medical History: GERD/Reflux History of Any Multi-Drug Resistant Organisms: None Reported Past Surgical History: Heart Catheterization Additional Past Surgical History / Comment(s): colonsocopy,spinal injection, Past Anesthesia/Blood Transfusion Reactions: No Reported Reaction Past Psychological History: No Psychological Hx Reported Smoking Status: Never smoker Past Alcohol Use History: None Reported Past Drug Use History: None Reported
[2024-01-06 18:11] LABS: Glucose,Whole Blood 177 mg/dL (70-110)
[2024-01-07 00:08] LABS: Glucose,Whole Blood 166 mg/dL (70-110)
[2024-01-07] MEDS: hydrALAZINE HCL 20 MG/ML 1 ML VIAL IVP PRN (00:19)
[2024-01-07 04:00] LABS: Anisocytosis Slight; HCT 22.8 % (39.0-53.0); HGB 7.4 gm/dL (13.0-17.5); Hypochromasia Moderate; MCH 29.8 pg (25.0-35.0); MCHC 32.3 g/dL (31.0-37.0); MCV 92.1 fL (80.0-100.0); Mean Platelet Volume 9.5; Platelet Count 145 k/uL (150-450); RBC 2.47 m/uL (4.30-5.90); WBC 11.4 k/uL (3.8-10.6)
[2024-01-07 04:20] LABS: African American GFR (CKD) >90 (>60 ml/min/1.73 sqM); Anion Gap 5 mmol/L; Blood Urea Nitrogen 44 mg/dL (9-20); Calcium 7.3 mg/dL (8.4-10.2); Carbon Dioxide 18 mmol/L (22-30); Chloride 113 mmol/L (98-107); Glucose 140 mg/dL (74-99); Non-African American GFR(CKD) 87 (>60 ml/min/1.73 sqM); Phosphorus 2.2 mg/dL (2.5-4.5); Potassium 3.4 mmol/L (3.5-5.1); Sodium 136 mmol/L (137-145)
[2024-01-07 04:35] LABS: Magnesium 1.8 mg/dL (1.6-2.3)
[2024-01-07] MEDS: MAGNESIUM SULFATE-D5W PMX 1 GM in DEXTROSE/WATER 1 100ML.BAG IVPB ONE (05:36)
[2024-01-07 05:56] LABS: ABG Base Excess -3.2 mmol/L; ABG HCO3 21 mmol/L (21-25); ABG Oxygen Saturation 98.9 % (94-97); ABG PCO2 30 mmHg (35-45); ABG PH 7.44 (7.35-7.45); ABG PO2 100 mmHg (83-108); ABG TCO2 21 mmol/L (19-24); Allen Test Performed? Yes
[2024-01-07 06:06] LABS: Glucose,Whole Blood 166 mg/dL (70-110)
[2024-01-07] MEDS: POTASSIUM CHLORIDE 10 MEQ in WATER FOR INJECTION 1 100ML.BAG IVPB SCH (08:36)
--- NOTE | 2024-01-07 09:55 | P.PN ---
Subjective Patient is seen in follow-up for acute kidney injury. Patient underwent exploratory laparotomy with small bowel obstruction NG tube replacement Sep tem2023. Nonoliguric. Started on hemodialysis November 29, 2023. Last dialysis December 18, 2023. Status post tracheostomy December 10, 2023. Renal function has improved. Receiving TPN. Off vasopressors. Scheduled for drainage of abscess today. Vital signs stable. General: Resting in bed. HEENT: Tracheostomy noted. LUNGS: Scattered rhonchi. HEART: Regular rate and rhythm. ABDOMEN: No drainage. EXTREMITITES: Trace edema. Objective - Vital Signs Vital signs: Vital Signs Temp 97.9 F 01/07/24 02:30 Pulse 97 01/07/24 07:59 Resp 22 01/07/24 07:00 BP 136/85 01/07/24 07:00 Pulse Ox 94 L 01/07/24 07:00 FiO2 30 01/07/24 07:46 Intake & Output 01/06/24 01/07/24 01/07/24 18:59 06:59 18:59 Intake Total 1486 1328 140 Output Total 1315 1350 75 Balance 171 -22 65 Weight 98 kg 97.3 kg Intake: IV 1436 1328 90 0.9 Normal Saline @ KVO 120 10 Ceftolozane/Tazobactam 3 100 gm In Sodium Chloride 0.9 % 100 ml @ 100 mls/hr IV Q8H [facility] Rx#:[id number] Magnesium 100 Normal Saline Pressure 36 38 Saline Potassium Chloride 10 meq 200 In Water For Injection 1 100ml.bag @ 100 mls/hr IVPB Q1H [facility] Rx#: [id number] TPN 1080 1080 90 Intake, IV Titration 50 50 Amount Clevidipine Butyrate 25 50 50 mg In Empty Bag 1 bag @ 1 MG/HR 2 mls/hr IV .Q24H [facility] Rx#:[id number] Output: Drainage 120 60 Right Abdomen 120 60 Urine 1195 1290 75 Other: Voiding Method Indwelling Catheter Indwelling Catheter ABP, PAP, CO, CI - Last Documented Arterial Blood Pressure 152/62 - Labs CBC & Chem 7: 01/07/24 03:40 01/07/24 03:40 Labs: Abnormal Lab Results - Last 24 Hours (Table) 01/06/24 01/06/24 01/07/24 Range/Units : 18:09 00:07 WBC (3.8-10.6) k/uL RBC (4.30-5.90) m/uL Hgb (13.0-17.5) gm/dL Hct (39.0-53.0) % RDW (11.5-15.5) % Plt Count (150-450) k/uL ABG pCO2 (35-45) mmHg ABG O2 Saturation (94-97) % Hemoglobin (13.0-17.5) gm/dL Sodium (137-145) mmol/L Potassium (3.5-5.1) mmol/L Chloride (98-107) mmol/L Carbon Dioxide (22-30) mmol/L BUN (9-20) mg/dL Glucose (74-99) mg/dL POC Glucose (mg/dL) 164 H 177 H 166 H (70-110) mg/dL Calcium (8.4-10.2) mg/dL Phosphorus (2.5-4.5) mg/dL 01/07/24 01/07/24 01/07/24 Range/Units 03:40 03:40 05:51 WBC 11.4 H (3.8-10.6) k/uL RBC 2.47 L (4.30-5.90) m/uL Hgb 7.4 L (13.0-17.5) gm/dL Hct 22.8 L (39.0-53.0) % RDW 18.0 H (11.5-15.5) % Plt Count 145 L (150-450) k/uL ABG pCO2 30 L (35-45) mmHg ABG O2 Saturation 98.9 H (94-97) % Hemoglobin 7.3 L (13.0-17.5) gm/dL Sodium 136 L (137-145) mmol/L Potassium 3.4 L (3.5-5.1) mmol/L Chloride 113 H (98-107) mmol/L Carbon Dioxide 18 L (22-30) mmol/L BUN 44 H (9-20) mg/dL Glucose 140 H (74-99) mg/dL POC Glucose (mg/dL) (70-110) mg/dL Calcium 7.3 L (8.4-10.2) mg/dL Phosphorus 2.2 L (2.5-4.5) mg/dL 01/07/24 Range/Units 06:05 WBC (3.8-10.6) k/uL RBC (4.30-5.90) m/uL Hgb (13.0-17.5) gm/dL Hct (39.0-53.0) % RDW (11.5-15.5) % Plt Count (150-450) k/uL ABG pCO2 (35-45) mmHg ABG O2 Saturation (94-97) % Hemoglobin (13.0-17.5) gm/dL Sodium (137-145) mmol/L Potassium (3.5-5.1) mmol/L Chloride (98-107) mmol/L Carbon Dioxide (22-30) mmol/L BUN (9-20) mg/dL Glucose (74-99) mg/dL POC Glucose (mg/dL) 166 H (70-110) mg/dL Calcium (8.4-10.2) mg/dL Phosphorus (2.5-4.5) mg/dL Assessment and Plan Plan: Assessment: 1. Acute kidney injury secondary to ATN secondary to septic shock. Creatinine 0.86 on admission and up to 5.38 dated November 29, 2023. Urine output im proved, now nonoliguric. UA fairly benign. No hydronephrosis noted on imaging. Started on hemodialysis November 29, 2023 due to volume overload. Patient initially had a right femoral catheter placed which subsequently became occluded and a left tunneled femoral catheter was placed December 06, 2023. Renal function improving with creatinine improved to 0.86. 2. Perforated small bowel status post exploratory laparotomy with abdominal washout, small bowel resection and J-tube replacement November 25, 2023. 3. A-fib with RVR. s/p amiodarone drip. Also received digoxin this admission. 4. Recently diagnosed gastric B-cell lymphoma. 5. Septic shock. Likely abdominal source. On IV antibiotics. Blood culture positive for staph. ID following. Dialysis catheter removed. 6. Hypocalcemia secondary to acute kidney injury. Replaced. Improved. 7. Metabolic acidosis secondary to acute kidney injury, TPN. 8. Volume overload. Improved with diuresis and ultrafiltration. 9. Status post tracheostomy December 10, 2023. 10. Anemia. Component of chronic illness and acute blood loss. Received blood transfusions and DDAVP this admission. On Aranesp. 11. Respiratory alkalosis with metabolic acidosis. 12. Hypernatremia from lack of oral water intake. Status post D5W. Sodium level now normal. Plan: Last dialysis December 18, 2023. No further need at this time. Dialysis cathete r removed December 28, 2023. Receiving TPN. Phosphorus to be adjusted with TPN. Avoid nephrotoxins. Preserved EF noted on echocardiogram. Case discussed with family present at bedside. Potassium being replaced. Lasix as needed. Drainage of lung abscess today. 2 A sodium bicarb IV push today.
[2024-01-07] MEDS: SODIUM BICARB 8.4% 50 ML SYR (1 MEQ/ML) IV STA (10:44)
[2024-01-07 10:50] LABS: INR 1.2 (<1.2)
--- NOTE | 2024-01-07 12:15 | P.PN ---
Subjective Progress Note Date: 01/07/24 01/06/2024, the patient is being seen for a follow-up. The patient remains off sedation. The patient is arousable. Remains profoundly weak and debilitated. He remains on the mechanical ventilator, assist-control mode with rate of 32, tidal volume of 450, FiO2 of 30% with a PEEP of 5. Chest x-ray shows extensive consolidation of the right lung and right upper lobe opacity with a previously described cavity. Blood gas shows a pH of 7.4 with a pCO2 of 34 pO2 of 93. The patient remains on KVO IV fluids. The patient is on TPN for nutritional support at a rate of 90 cc an hour. Fluid balance is +1.3 L over the past 24 hours. The patient is receiving Dilaudid for pain control. While off Dilaudid, he developed hypertension and overnight the patient was started on Cleviprex at 4 mg an hour. RAYA drain has produced around 40 cc over the past 24 hours. The J- tube is nonfunctional. The wound VAC is still in place. The blood work from today shows a white cell count of 10.6 and hemoglobin of 7.6 and a platelet count of 111. Renal function is normalized and the patient's BUN is 44 with a c reatinine of 0.9. Serum bicarb is at 19 with a chloride of 115 and a sodium level at 137. LFTs are normal with an alkaline phosphatase of 222. The sputum sample was positive for Citrobacter and Pseudomonas. The Pseudomonas aeruginosa was quite resistant and the patient is currently on a combination of ceftolozane and tazobactam. Afebrile. Hemodynamically stable. Cardiac rhythm is sinus. On 01/07/2024, the patient remains off sedation. Somewhat encephalopathic. Extremely weak, occasionally follows some simple commands. Unable to raise his arms against gravity. Continues to have respiratory secretions and coughing episodes specially once the effect of Dilaudid wears off. Remains on a mechanical ventilator. He was able to tolerate pressure support of 12 and a PEEP of 5 for a total of 4 hours yesterday. Overnight, the patient was kept on assist-control mode of mechanical ventilation this morning he is on assist- control of 20, tidal volume of 500, FiO2 of 30% with a PEEP of 5. The patient was placed back on pressure support mode of mechanical ventilation this is being done on a daily basis. Blood gas showed a pH of 7.44 with a pCO2 of 30 and pO2 100. Discussed the case with interventional radiology and the patient has a right lung abscess and the patient is going to have a pigtail catheter inserted today. Renal function is normal. TPN is running at a rate of 90 cc an hour. The J-tube is not being utilized at this point. Fluid balance is +149 cc over the past 24 hours. RAYA drain output is noted. Output is serosanguineous. Wound VAC is in place. The patient remains on Cleviprex at 2 mg an hour and the patient receiving hydralazine 10 mg for blood pressure control every 6 hours. He remains on a broad-spectrum antibiotic coverage and he is on ceftolozane tazobactamBlood work from today shows a WBC count of 11.4, hemoglobin of 7.4 and a platelet count of 145. BUN is 44 with a creatinine of 0.8 and sodium levels at 136 and potassium levels at 3.4. Glucose is 166. Objective - Vital Signs Vital signs: Vital Signs Temp 97.9 F 01/07/24 02:30 Pulse 97 01/07/24 07:59 Resp 22 01/07/24 07:00 BP 136/85 01/07/24 07:00 Pulse Ox 94 L 01/07/24 07:00 FiO2 30 01/07/24 07:46 Intake & Output 01/06/24 01/07/24 01/07/24 18:59 06:59 18:59 Intake Total 1486 1328 140 Output Total 1315 1350 75 Balance 171 -22 65 Weight 98 kg 97.3 kg Intake: IV 1436 1328 90 0.9 Normal Saline @ KVO 120 10 Ceftolozane/Tazobactam 3 100 gm In Sodium Chloride 0.9 % 100 ml @ 100 mls/hr IV Q8H [facility] Rx#:[id number] Magnesium 100 Normal Saline Pressure 36 38 Saline Potassium Chloride 10 meq 200 In Water For Injection 1 100ml.bag @ 100 mls/hr IVPB Q1H [facility] Rx#: [id number] TPN 1080 1080 90 Intake, IV Titration 50 50 Amount Clevidipine Butyrate 25 50 50 mg In Empty Bag 1 bag @ 1 MG/HR 2 mls/hr IV .Q24H [facility] Rx#:[id number] Output: Drainage 120 60 Right Abdomen 120 60 Urine 1195 1290 75 Other: Voiding Method Indwelling Catheter Indwelling Catheter ABP, PAP, CO, CI - Last Documented Arterial Blood Pressure 152/62 - Exam No acute distress, arousable on Precedex and following simple commands, comfortable, still on the mechanical ventilator. The patient has a tracheostomy tube in place. HEENT examination is grossly unremarkable. Mucous membranes are moist. No oral lesions.. The patient also has a tracheostomy tube in place and the patient has a #8 Shiley tracheostomy tube. Cardiac exam revealed the PMI to be normally situated and sized. The rhythm was regular and no extrasystoles were noted during several minutes of auscultation. The first and second heart sounds were normal and physiologic splitting of the second heart sound was noted. There were no murmurs, rubs, clicks, or gallops. The patient is in sinus tachycardia. Lungs reveal mild scattered rhonchi. No wheezes or crackles. Breath sounds equal. Diminished breath sound lung base bilaterally. Abdomen distended without bowel sounds. J-tube is noted. Mid abdominal wound is covered with a wound VAC and a RAYA drain in place and output is serosanguineous. Extremities are intact. No cyanosis clubbing trace edema lower extremities bilaterally Skin is without rash or lesion. The wound at the Mediport site is dry and the area has been sutured and the site is clean for now. Neurologic examination is brief but nonfocal. - Labs CBC & Chem 7: 01/07/24 03:40 01/07/24 03:40 Labs: Abnormal Lab Results - Last 24 Hours (Table) 01/06/24 01/06/24 01/07/24 Range/Units 11: 18:09 00:07 WBC (3.8-10.6) k/uL RBC (4.30-5.90) m/uL Hgb (13.0-17.5) gm/dL Hct (39.0-53.0) % RDW (11.5-15.5) % Plt Count (150-450) k/uL ABG pCO2 (35-45) mmHg ABG O2 Saturation (94-97) % Hemoglobin (13.0-17.5) gm/dL Sodium (137-145) mmol/L Potassium (3.5-5.1) mmol/L Chloride (98-107) mmol/L Carbon Dioxide (22-30) mmol/L BUN (9-20) mg/dL Glucose (74-99) mg/dL POC Glucose (mg/dL) 164 H 177 H 166 H (70-110) mg/dL Calcium (8.4-10.2) mg/dL Phosphorus (2.5-4.5) mg/dL 01/07/24 01/07/24 01/07/24 Range/Units 03:40 03:40 05:51 WBC 11.4 H (3.8-10.6) k/uL RBC 2.47 L (4.30-5.90) m/uL Hgb 7.4 L (13.0-17.5) gm/dL Hct 22.8 L (39.0-53.0) % RDW 18.0 H (11.5-15.5) % Plt Count 145 L (150-450) k/uL ABG pCO2 30 L (35-45) mmHg ABG O2 Saturation 98.9 H (94-97) % Hemoglobin 7.3 L (13.0-17.5) gm/dL Sodium 136 L (137-145) mmol/L Potassium 3.4 L (3.5-5.1) mmol/L Chloride 113 H (98-107) mmol/L Carbon Dioxide 18 L (22-30) mmol/L BUN 44 H (9-20) mg/dL Glucose 140 H (74-99) mg/dL POC Glucose (mg/dL) (70-110) mg/dL Calcium 7.3 L (8.4-10.2) mg/dL Phosphorus 2.2 L (2.5-4.5) mg/dL 01/07/24 Range/Units 06:05 WBC (3.8-10.6) k/uL RBC (4.30-5.90) m/uL Hgb (13.0-17.5) gm/dL Hct (39.0-53.0) % RDW (11.5-15.5) % Plt Count (150-450) k/uL ABG pCO2 (35-45) mmHg ABG O2 Saturation (94-97) % Hemoglobin (13.0-17.5) gm/dL Sodium (137-145) mmol/L Potassium (3.5-5.1) mmol/L Chloride (98-107) mmol/L Carbon Dioxide (22-30) mmol/L BUN (9-20) mg/dL Glucose (74-99) mg/dL POC Glucose (mg/dL) 166 H (70-110) mg/dL Calcium (8.4-10.2) mg/dL Phosphorus (2.5-4.5) mg/dL Assessment and Plan Plan: Acute hypoxemic respiratory failure with failure to wean from mechanical ventilation, S/P tracheostomy on December 10, 2023. The patient has bilateral pneumonia with a cavitary infiltrate in the right upper lobe, secondary to Pseudomonas aeruginosa and Citrobacter and the patient is currently on a combination of ceftolozane/tazobactam. CAT scan of the chest done on 12/17/2023 was reviewed and the patient has a cavitating cyst/abscess in the posterior aspect of the right upper lobe in addition to patchy opacities bilaterally right more than left consistent with pneumonia,/gram-negative pneumonia. Patient was able to tolerate pressure support mode of mechanical ventilation for a total of 4 hours. He is currently on assist-control mode, pending IR guided/CT-guided drainage of the right lung abscess. Hospital-acquired right lung pseudomonal/Klebsiella pneumonia. Patient is currently on IV ceftolozane/tazobactam. Chest x-ray from remains unchanged. Respiratory secretions are copious. The patient is having also frequent coughing episodes. 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 Small bowel perforation with abdominal contamination. The patient is status post expiratory laparotomy and small bowel resection and insertion of another jejunostomy tube. The patient jejunostomy is not functional and remains clogged and this was unclogged yesterday. Nevertheless, the tube itself is still malfunctioning. However, the abdominal wound is dehisced and is infected. RAYA drain output is serosanguineous. A wound VAC was applied to the anterior abdominal wall. Peritonitis secondary to above, recovered Septic shock secondary to above, the patient is currently off pressors Atrial fibrillation with rapid medical response, currently back into normal sinus rhythm . Acute kidney injury, off hemodialysis and renal function has normalized History of acute aspiration during upper endoscopy most likely secondary to gastric outlet obstruction secondary to non-Hodgkin's lymphoma. weight loss most likely secondary non-Hodgkin's lymphoma involving the stomach. Anemia of chronic disease, multifactorial, hemoglobin is stable for now Encephalopathy, multifactorial, stable Profound weakness in all 4 extremities and the patient is unable to move at this point in time. Motor function 0 out of 5 in all 4 extremities. Positive cough. Positive gag. 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 Malfunctioning of the J-tube, currently on TPN for nutritional support Hypertension, currently on Cleviprex Plan Continue ventilator support. Get the patient spontaneous breathing trials with a pressure support of 12 and a PEEP of 5, this time will be done on a daily basis. Reviewed the CAT scan of the chest and abdomen yesterday and the patient will have a pigtail catheter inserted today to further optimize respiratory status and this will be done by interventional radiology and we anticipate drainage of the right lung abscess. Continue IV ceftolozane/tazobactam The J-tube needs to be readdressed. It is nonfunctional and the patient is on TPN for nutritional support IV fluids to KVO Monitor fever pattern General Surgery is on the case regarding abdominal wound Continue hydralazine and a gradual wean off the Cleviprex drip Condition remains extremely critical with poor prognosis based on the above Will continue to follow this patient along with the rest of the consultants. Condition is critical over the poor outcome based on the above. Evaluation was done more than 30 minutes. Time with Patient: Greater than 30
[2024-01-07 12:46] LABS: Glucose,Whole Blood 162 mg/dL (70-110)
[2024-01-07] MEDS: HYDROmorphone 2 MG/ML 1 ML SYRINGE IVP SCH (12:50)
--- NOTE | 2024-01-07 15:17 | P.PN ---
Progress Note - Text Progress Note Date: 01/07/24 Chief Complaint: On the ventilator This is a 73-year-old patient, follows with Dr. Patricia Deal. Patient was seen this morning in the ICU. Patient's and daughter at the bedside. History obtained predominantly by the . Patient been having trouble with his stomach symptoms for close to 8 months. Patient underwent EGD by Dr. Sahara Cheng yesterday. Patient was found to have ulcerated around the antrum and obstruction to the pylorus. A lot of retained food was found. Patient aspirated. Had to be intubated and brought to the ICU. On a Levophed drip. FiO2 50 and a PEEP of 6. Patient had been losing weight lost about 25 pounds. Previously has a history of mitral valve prolapse. November 13: ICU. Patient remains on Precedex drip and propofol drip. Did not do well attempted extubation yesterday. Patient been off Levophed. NG tube to suction. Spoke to patient's and son at the bedside. Biopsy results awaited. Hemoglobin dropped to 6.9 this morning. Get a unit of blood. November 14: ICU. Up in a chair. Extubated yesterday. NG tube to suction. at the bedside. 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 Oncology was consulted. They have ordered a port. Results discussed with Dr. Sahara Cheng. General surgery was consulted for J-tube placement. Discussed with at the bedside. Patient getting IV fluids, IV Zosyn,. Patient has been on IV amiodarone for A-fib-back in sinus rhythm. Multiple PACs. Did receive unit of blood yesterday. Also IV ferric gluconate. November 15: ICU. Patient earlier today underwent jejunostomy tube placement and a port placement. Patient awake. Answering questions. NG tube to suction present. Updated patient's . Patient remains on IV amiodarone and IV Zosyn. November 16: ICU. Up in the chair. NG tube present but not to suction. Trickle feeding through the jejunostomy tube should be started today. Dietitian has been on board. IV Zosyn to continue. Patient's and his sister at the bedside. Discussed. Also spoke with Dr. Serna. Given patient has no other predisposing cardiac factors for the A-fib except acute illness. His LV function is normal. Left atrium is normal. He has already been loaded with IV amiodarone. Will switch him to oral Lopressor 12.5 twice daily. Hence will DC amiodarone. Patient yesterday had wheezing was put on bronchodilators steroids per pulmonary. November 17: Propped up in bed. NG tube was discontinued. Sinus rhythm. Remains NPO. Getting G-tube feeding at 40 cc an hour. Dietitian following. Get arrangements done for DC home tomorrow including tube feeding. Increase activity discussed with patient and elder daughter at the bedside. Still requiring oxygen. Incentive spirometry. November 18: Patient up in recliner. Earlier today spoke to aids social worker David. Informed patient is rather weak and will be going to the [facility]. Looking at authorization. Denae came to the room and spoke to patient his and his daughter. They are very keen to take the patient home as 3 daughters all nurses and they will take care of him at home. Patient earlier today to abdominal cramping and some loose stools.'s tube feeding was held. Told the nurse to start back at the rate of 40 cc an hour. He was before the getting it at 55 cc an hour. Incentive spirometry was again emphasized. Patient remains on 4 L of oxygen. November 19: I saw the patient this morning. Hence I am in the evening. Morning was sitting with his sons. Has some edema. Lungs had crackles I gave him 40 mg of Lasix. He did make good urine. Tube feeding was held from the p revious evening of because of abdominal cramping. Acute abdominal series showed nonspecific bowel gas pattern and SBO to be ruled out. Family and patient was updated. Told him discharge will depend on day by day. Later this afternoon CT scanAnd abdomen pelvis done. Showed small bowel to be 3 point centimeter dilated. Some anasarca. Gastric findings. Gallstones. Later spoke to Dr. Irby from general surgery. They will further review and decide about further plan of action. Will give further dose of IV Lasix because of fluid overload from likely hypoalbuminemia and IV fluids previously received. Patient may take his pills by mouth. Total time spent today about 1 hour with over 40 minutes of discussion. Patient did state his breathing is better after Lasix this morning. November 20: Saw the patient this morning. was present. Patient received 2 more doses of Lasix. Diuresed well. Breathing much better. Lungs are sounding better. Discussed with Dr. Zepeda other surgeon. He is taking 3 cc out of the balloon and the gastrostomy tube. Started trickle feeding at 5 cc an hour. Will see how this does. Later in the day ran into the and the daughter again. Did update them on the same. Dilaudid was discontinued yesterday but morphine was ordered by surgery for patient having pain. Concerns about GI issues with that we will DC the morphine. As family does not want the same. November 21: Patient reclining bed. Tired. Several family members at the bedside. Including his and eldest daughter. Patient started on trickle feed yesterday at 5 cc an hour. This morning he has been on 10 cc an hour. Still having some loose stools. C. difficile was ordered. Patient on 2 L of nasal cannula. Has diuresed well. Will give an additional dose of Lasix today. If C. difficile is negative and the diarrhea is from the tube feedings we may have to use a fecal management system to keep him comfortable. Otherwise patient remains NPO. Dietitian is following the patient. Care was discussed length with patient the and daughter at the bedside. Questions answered. Liquid Tylenol has been added for abdominal pain. Avoid narcotics. Elevated white count likely from Solu-Medrol 11/23/2023--patient was feeling better today. Multiple family member at bedside. No issues overnight. Normal saline at 10 cc an hour, tube feeding at 20 cc an hour, remains on Zosyn, on 3 L oxygen. Afebrile. Heart rate 62, respiratory rate 16, blood pressure 114/67, saturating 91% on 3 L. WBCs 14.5, 9.7 hemoglobin. Platelet 242. BMP is unremarkable. Pulmonary and general surgery following. General surgery recommended to continue tube feeds at 20 cc/h. 11/24/2023--patient reported significant abdominal discomfort, also noted to have leak around G-tube. General surgery is following, evaluated the patient at bedside, adjusted tube feeds. Also reported having diarrhea, on 2 L oxygen, went up to 5 L. Blood pressure was low, 500 mL fluid bolus with close monitoring of respiratory status ordered. Currently on DuoNebs, Solu-Medrol, will continue Zosyn. Chest x-ray showed a left lower lobe infiltrate. Abdominal x-ray showed multiple air-fluid levels. CT abdomen showed multiple dilated small bowel loops, consistent with obstruction, pneumoperitoneum, cholelithiasis and ascites. WBCs 14.1, platelet 255, hemoglobin 8.9. NG tube in place. Family at bedside. patient transferred to SICU for close monitoring. 11/25/23--patient is currently in the ICU, required Levophed overnight due to low blood pressure, low urine output with creatinine trending up. Nephrology following. Senior Corporate Accountant also following. Patient remains n.p.o., NG tube in place, following NG tube insertion patient had total of 2 L output, J-tube was draining approximately 200 cc over last 8 hours, continues to have abdominal pain and abdominal tenderness. Patient on IV fluids. Currently on 4 L oxygen. WBCs 8.2, hemoglobin 12.3, platelet 188. Chest x-ray earlier today showed right sided port and a stable left lung airspace disease, NG tube in place. Patient currently on Zosyn, on IV Dilaudid for pain control, on IV Solu-Medrol. General surgery planning for OR today, started on TPN. 11/26/23--patient was seen and examined today. Patient is currently sedated, intubated on mechanical ventilation. Family at bedside. Patient underwent ex lap, abdominal washout, small bowel resection with new feeding jejunostomy tube placement yesterday, small bowel was noted to be perforated with significant contamination of abdominal cavity. Patient is currently on vancomycin and Zosyn. Creatinine went up to 2.85, nephrology following, recommended to continue IV fluids, avoid nephrotoxin Preserved EF on echocardiogram.. Patient currently on Levophed, vasopressin in the ICU for close monitoring. Patient is afebrile, heart rate 122, blood pressure 129/76, currently on mechanical ventilation, sedated. November 26: ICU. Intubated. FiO2 60 and a PEEP of 5. Drips include IV amiodarone. Heart rate was up early did get fired microgram of IV digoxin and 2.5 mg of IV Lopressor. Did drop her blood pressure bit. Urine output was low. Received 80 mg of IV Lasix. Ahmet to 150 cc. Other drips include IV propofol, vasopressin, Levophed. TPN was started yesterday. Antibiotics include IV Zosyn and vancomycin. Patient has a J-tube to drainage to gravity. Spoke to patient's younger daughter and at the bedside. Prognosis guarded. Continue current treatment plan. Chest x-ray shows right lower lobe consolidation. Small pleural effusion. November 27: ICU. Intubated. FiO2 55 and a PEEP of 5. Antibiotics include IV vancomycin. Drips include Levophed at a small dose, IV vasopressin, propofol, amiodarone. Patient converted to sinus rhythm this morning. Getting TPN and normal saline at 75 cc an hour. Urine output about 25 cc an hour. RAYA drain put out about 260 cc last 12 hours that is last night worker. NG tube with bilious output. And also GI J-tube output to gravity. Spoke to patient's and daughter at the bedside. They understand patient still not out of the kee. Platelets have dropped-therefore probably Zosyn stopped. November 28: ICU. Intubated. FiO2 55 and a PEEP of 5. Patient is in sinus rhythm. Seen this morning. Due for dialysis catheter this afternoon. Urine output about 15 to 20 cc an hour. Patient is on IV Lasix 80 mg every 12. Saline is KVO. Drips include IV propofol vasopressin. Patient having significant output through the RAYA drain and the jejunostomy tube to drainage. Creatinine had been getting worse. Patient's at the bedside. Understands patient's remains critically ill. Hemoglobin is down to 7. Given that patient's pain hypotensive, and on vasopressin we will give a unit of blood with dialysis. Getting TPN antibiotic changed to IV meropenem November 29: ICU. Intubated. FiO2 55 and a PEEP of 5. Remains in sinus rhythm. Getting TPN. Dialyzed yesterday and this morning. About 1000 cc removed. Urine output about 50 cc an hour. Patient is on IV propofol. Off vasopressin. Still having significant output through the RAYA drain and jejunostomy tube. Patient received a second unit of blood yesterday. Patient's and daughter at the bedside. I did discuss guarded prognosis. Did asked them to revisit CODE STATUS.. Getting IV meropenem. November 30: ICU. Intubated. Did get a sedation holiday t today. Back on propofol. Getting TPN. Still getting IV Lasix. Fair urine output. Jejunostomy tube in last 8 hours was about 30 cc output. RAYA drain in the 8 hours had about 180 cc output. Telemetry shows sinus rhythm. NG tube has low intermittent suction with negative output. On the vent with FiO2 40 and a PEEP of 5. No hemodialysis today. Discussed with the and eldest daughter at the bedside. IV meropenem-patient's sputum had grown Citrobacter freundii and Pseudomonas aeruginosa. December 01: ICU. Intubated. Jejunostomy tube to gravity. Only 10 cc output in last 24 hours. RAYA drain. About 190 cc last 6 hours. Nasogastric tube to low intermittent suction. Minimal output. Patient is on a small dose of propofol 5 mics. Telemetry shows sinus rhythm. Patient started on small dose of Cleviprex this morning. Blood pressure. Getting TPN. FiO2 35 and PEEP of 5. Discussed with the at the bedside. Hemodialysis today December 02: ICU. Patient remains intubated. FiO2 35 PEEP of 5. Patient is on IV propofol. IV Cleviprex was discontinued yesterday. Also remains on TPN. Telemetry shows sinus rhythm. NG tube is good no output. Still significant output through the RAYA drain. Jejunostomy tube has minimal output. Patient had hemodialysis today 2 L of fluid was removed. Oral half liters yesterday. Patient getting a sedation holiday. General Surgery started the patient on trickle feeding at 10 cc an hour. I did speak to patient's at the bedside. Prognosis remains guarded but there is some improvement. December 03: ICU. Intubated. FiO2 35 PEEP of 5. Drips include IV propofol and Precedex. Getting TPN. Telemetry shows sinus rhythm. Remains on IV Lasix 80 mg twice a day. IV meropenem. Because patient gets easily agitated when transitioning off propofol he has been switched over to Precedex. For hemodialysis today. December 04: ICU. Intubated. FiO2 35 and a PEEP of 5. Patient been taken off propofol is on Precedex. Telemetry sinus rhythm. J-tube with minimal output. RAYA drain with decreased output. NG tube to suction minimal output. Family wanted to hold off trickle feeding until cleared by oncology. Which he did today. Trickle feeding will be started today. Spoke to patient's and one of the daughters at the bedside. Dr. Russ is spoken to the earlier this point they want to do further tracheostomy tube. October 4: ICU. Intubated. FiO2 35 PEEP of 5. Patient remains on Precedex and PPN. Patient's dialysis catheter was not functioning is getting another [address] Bobby this afternoon. Remains on IV meropenem. Has a RAYA drain in the jejunostomy tube to gravity. NG tube to low intermittent suction. No family at the bedside. December 06: ICU. Intubated. FiO2 35 PEEP of 5. RAYA drain putting out about approximately 120 cc per shift. Patient on IV Precedex. FiO2 35 PEEP of 5. Telemetry-sinus rhythm. Patient occasionally been put on small dose of Levophed specially for hemodialysis getting it today. Also started on midodrine for low blood pressure. Tolerating tube feeding at 10 cc an hour. Also had a bowel movement. Mentation has not improved. Even with sedation holiday. Neurology consulted. CT brain shows no acute process. December 07: ICU. Intubated. FiO2 35 PEEP of 5. Telemetry-sinus rhythm. NG tube to suction low intermittent minimal output. Getting TPN. Tube feeding at 20 cc an hour. RAYA drain averaging over 100 cc per shift. Remains on Precedex. EEG was done today. Discussed with at the bedside. Family is currently not inclined for tracheostomy tube today. Day 13 of being intubated December 08: ICU. Intubated. FiO2 35 PEEP of 5. Patient is put on back on propofol per dock clerk Dr. JIMENEZ. EEG did show some potential for spikes was put on Keppra by neurology. Telemetry shows sinus rhythm. NG tube to suction with no output. Tube feeding was put on hold because of questionable discharge on the site. Being restarted today. RAYA drain is 150 cc last 12-hour shift. Patient does open eyes. Family has decided to proceed with tracheostomy and surgery has been consulted for the same. Spoke to the at the bedside. For hemodialysis today. December 09: ICU. Intubated FiO2 35 PEEP of 5. Patient seen this morning. Pending tracheostomy placement this afternoon. Remains NPO. G-tube feeding was held overnight. RAYA drain putting out about 100 cc per shift. Received a unit of blood for hemoglobin of 6.6. On 25 mics of propofol. Getting TPN and meropenem. Spoke to the at the bedside. Patient became hypotensive with dialysis yesterday. Levophed had to be given. Only 800 cc were removed yesterday. No hemodialysis today. December 10: ICU . FiO2 35, PEEP 5. Tracheostomy was done yesterday by Dr. Ewing. G-tube feeding was started today at 10 cc an hour. Dietitian following. RAYA drain 12-hour shift overnight put out about 30 cc. Patient hemodialysis today about 1 L removed. Patient has a sacral stage II decub with a dressing. On propofol 20 mics. Spoke to at the bedside. TPN. Meropenem was discontinued yesterday. December 11: ICU. FiO2 35 PEEP of 5. Tracheostomy. NG tube was discontinued. No hemodialysis today. Telemetry shows sinus rhythm. J-tube feeding at 40 cc an hour. TPN was discontinued. Patient has been off propofol also. PICC line in place. Patient had a EEG done today. Spoke to patient's elder daughter at the bedside. May open eyes occasionally. Not really following commands December 12: 73-year-old white male with history of chronic abdominal pain for the last 8 months has been treated with Protonix 40 mg daily for the last 3 months with no improvement. Patient had a 22 pound weight loss in the last [address] of the abdomen and pelvis 3 weeks ago showed thickening of the antral wall with pathological adenopathy posterior to the stomach suspicious of neoplasm. Today the patient underwent elective upper endoscopy to evaluate further, patient received IV sedation by anesthesia endoscope was inserted into the mouth, esophagus was intubated without any difficulty there was evidence of large amount of liquid and solid food noted in the stomach suggestive of gastric outlet obstruction. Scope could not be advanced through the pylorus, however in the prepyloric area there was a large superficial ulceration identified with multiple biopsies were done from this area. The body cardia and fundus could not adequately visualize because of large amount of retained food in the s tomach. Scope was withdrawn back to the stomach and upon careful examination the mucosa of the antrum body and cardia as well as the fundus appeared normal. Procedure was being performed and biopsies were done patient threw up and subsequently became hypoxic there was clearly evidence of witnessed aspiration anesthesia intubated the patient, procedure was terminated, and the patient was transferred to the ICU, this consult was initiated. Patient is now on assist- control rate of 20 tidal volume 500 FiO2 70% PEEP of 10 ABG is pending, earlier ABG showed profound hypoxia patient is on propofol at 50 mcg/kg/min, next ABG is pending. Chest x-ray showed chronic changes without evidence of acute pulmonary disease. 12/14/2023 Patient remains in the ICU, generally weak Patient s/p tracheostomy G-tube in place Patient still has fever and mild tachycardia but tachycardia is improving, leukocytosis improving as well. Hemoglobin 8.1. Creatinine 3.0 and nephrology team on the case. He has mild transaminitis. He was getting Zosyn which is held now, nowCalcitonin is pending 12/14 Patient shon in the ICU, he is still encephalopathic and does not follow command. Neurology service following closely. He is status post tracheostomy. Also J-tube His abdomen looks soft and on exam he has mild coarse secretions. Has a Abarca catheter with clear urine His pro- Calcitonin is still high but trending down 3.0 down to 1.9 No fever this morning WBC slightly less at 16.3 Patient currently off antibiotic He is getting steroids IV Solu-Medrol which might contribute to his leukocytosis. Also he is on IV Keppra by neurologist 12/14 Patient remains confused in the ICU calm, he had a good night per family member and staff. Tracheostomy in place Patient has occasional coughing spells, patient also developed some partial wound dehiscence in his abdomen, surgery team are aware and are going to evaluate the patient Patient also has positive blood culture from 12/13: Gram-positive cocci in clusters. Patient received one-time dose of IV vancomycin. Patient also had fever 2 days ago, leukocytosis and total elevated pro- Calcitonin. Therefore we are going to consult infectious disease team. As his antibiotic Zosyn was stopped few days ago. Currently patient KVO He has good urine output December 16: ICU. Trach. Congested. Requiring suctioning. No hemodialysis today. Getting G-tube feeding at 50 cc an hour. FiO2 30 and a PEEP of 5. On IV Precedex. Eyes open. Does follow commands. Weakness in the limbs. Spoke to at the bedside. Sputum positive for Klebsiella oxytoca and Pseudomonas aeruginosa. December 17: ICU. On trach. Currently cough with increased secretions requiring suctioning. Adding scopolamine patch. Very much clear secretion. CT scan is showing right upper lobe lung abscess. G-tube feeding at 50 cc an hour. Hemodialysis today. RAYA drain putting out about 140 cc a shift. Serous. Has been midline incision wound dehiscence. Wound VAC was placed on it. Stage II ulcer. Patient is on Precedex drip 0.15 mics. Urine output is good about 6200 cc an hour. Spoke to the at the bedside. Patient currently not stable for transfer to LTAC. No limb movements. PT OT on the case. otherwise awake does follow simple commands by face December 18: ICU. Patient seen this afternoon. Because of pain getting IV Dilaudid. No nasal cannula on room air. Does move about his head. Telemetry shows sinus rhythm. FiO2 30 and a PEEP of 5. Patient started on scopolamine patch yesterday has decreased secretions today. Good urine output. Tube feeding at 60 cc an hour. Wound VAC on incisional would be high since in place. RAYA drain continues to make output. No hemodialysis today December 19: ICU. Patient was seen earlier today. FiO2 30 and a PEEP of 5. Sinus rhythm. Awake. Does follow with eyes. Tube feeding got obstructed tube feedings held for now. Increasing oozing from the incision drainage site. at the bedside. Wound VAC remains in place. Good urine output. Dialysis held today. December 20: ICU. Per nephrology no dialysis today. 1 L fluid bolus given. J- tube was replaced over the wire by Dr. Ewing from surgery. On Precedex 0.6 mcg. FiO2 30 and a PEEP of 5 on the vent. RAYA drain putting out of around 100 cc per shift. at the bedside. Drainage through the abdominal incision wound. CT scan abdomen showed tube placement in the small bowel. Stable large right lower quadrant mass with a fluid level. December 21: ICU. No dialysis today. Patient started on trickle feeding through the J-tube yesterday. He started leaking around the J-tube site. Tube feeding was held. Dressings were placed. Wound VAC remains on the incision. Still having output through the RAYA drain. Patient remains on Precedex 0.4 mcg. FiO2 30 and a PEEP of 5. Sinus rhythm. at the bedside. December 22: ICU. Patient was seen this morning today by me. No dialysis today. Patient's and daughter at the bedside. FiO2 30 and a PEEP of 5. Sinus rhythm. Still having significant secretions through the tracheostomy tube. On Precedex 0.4 mcg. Getting D5W IV fluids. Tube feeding remains to be on hold since yesterday. Still output of RAYA drain. Awaiting input from surgery. Discussed with the and daughter. December 23: ICU. Saw the patient this afternoon. Because of good output of urine dialysis has been discontinued. Telemetry shows sinus rhythm. FiO2 30 and a PEEP of 5. RAYA output has been around 8200 cc an hour. Good urine output. Patient does have very slight movement of the limbs. Wound VAC is putting out about 20 cc per shift. Yesterday when trickle feeding was started patient's J- tube drainage also started leaking around the insertion site. Tube feeding was held. Patient remains on IV Zosyn and Precedex at 0.3 mcg. I had a very lengthy discussion with patient's daughter and at the bedside overall guarded prognosis. Later surgery spoke to the family, and then the nurse called me that family was wanting transferred to [facility]. I spoke to Dr. Irby. They felt they could not offer anything more at this point. I did call the [facility] transfer steam distribution supervisor. Gave them the reason for transfer. Later in the ICU nurse informed me through [employer] that [facility] had declined the transfer. Total time spent today about 50 minutes with over 30 minutes of discussion. December 24: ICU. Patient is doing not too well. Sinus rhythm. Drips include norepinephrine and IV propofol. Surgery did put 2 stitches around the J-tube insertion site. Started on TPN today. FiO2 30 PEEP of 5. Patient became hypothermic put on a Manjit hugger. Also hypoglycemic. Decreased urine output. IV fluids increased. Patient's son was at the bedside. I did speak to patient's eldest daughter outside in the waiting room. Did tell the patient doing very poorly. I did try to call the on the phone number she has gone home. Started an IV antifungal today. December 26, 2023 73-year-old white male with history of chronic abdominal pain for the last 8 months has been treated with Protonix 40 mg daily for the last 3 months with no improvement. Patient had a 22 pound weight loss in the last [address] of the abdomen and pelvis 3 weeks ago showed thickening of the antral wall with pathological adenopathy posterior to the stomach suspicious of neoplasm. Today the patient underwent elective upper endoscopy to evaluate further, patient received IV sedation by anesthesia endoscope was inserted into the mouth, esophagus was intubated without any difficulty there was evidence of large amount of liquid and solid food noted in the stomach suggestive of gastric outlet obstruction. Scope could not be advanced through the pylorus, however in the prepyloric area there was a large superficial ulceration identified with multiple biopsies were done from this area. The body cardia and fundus could not adequately visualize because of large amount of retained food in the stomach. Scope was withdrawn back to the stomach and upon careful examination the mucosa of the antrum body and cardia as well as the fundus appeared normal. Procedure was being performed and biopsies were done patient threw up and subsequently became hypoxic there was clearly evidence of witnessed aspiration anesthesia intubated the patient, procedure was terminated, and the patient was transferred to the ICU, this consult was initiated. Patient is now on assist- control rate of 20 tidal volume 500 FiO2 70% PEEP of 10 ABG is pending, earlier ABG showed profound hypoxia patient is on propofol at 50 mcg/kg/min, next ABG is pending. Chest x-ray showed chronic changes without evidence of acute pulmonary disease. 12/27/2023 Patient is seen and evaluated with family at bedside; remains in the ICU intubated and mechanically ventilated. - ABG showed a pO2 of 99 pCO2 31 pH of 7.44. -- Remains on Eraxis daptomycin and Zosyn patient is intermittently requiring Dilaudid, Ativan does not seem to help his agitation and restlessness. -- Continues to have leakage around the jejunostomy tube, and patient is undergoing the J-tube exchange today. Family is at bedside, seems to be quite anxious about his overall condition, and I explained to the that we are doing the best we can considering his critical illness situation and critical illness polyneuropathy. Patient is profoundly weak, and weaning the patient from mechanical ventilation is almost impossible. At least not at this point yet WBC count is 10.9 hemoglobin is 8.1 basic metabolic profile is normal BUN is 46 creatinine 1.90 patient has been off hemodialysis since the . Chest x- ray continues to show stable findings with right upper lobe opacity and right lower lobe opacity and possibly a small right-sided pleural effusion ----Continue ventilatory support, now on IMV mode rate of 16 with pressure support of 14 Continue Precedex and use Dilaudid 0.5 mg every 2-3 hours as needed. Nutritional support patient is now on TPN, Possible J-tube changed today for J- tube malfunction Continue antibiotics including daptomycin and Zosyn, Eraxis was added by infectious disease 12/28/2023 the patient is seen and evaluated in room at bedside; continues to be afebrile, the patient is on the ventilator through the trach FiO2 is currently stable at 30% no significant pleural effusion clinically patient on requiring any pressor support still having drainage around his jejunostomy tube patient dialysis catheter has been discontinued. Patient white count normalized to 7.6, creatinine is 1.51 patient with pneumonia with a sputum showing Citrobacter and Pseudomonas aeruginosa, the patient sputum repeat is still growing Citrobacter and Pseudomonas sensitive to the Pseudomonas is pending continue with Zosyn -patient did have a positive blood culture with staph epi that was oxacillin resistant as the patient did have a PICC line and the dialysis catheter he is on daptomycin repeat blood culture currently growing oxacillin sensitive staph epi, the patient dialysis catheter has been discontinued Has been sent for the culture -patient also have significant excoriation around his jejunostomy tube site which is still leaking Eraxis was added which will be continued as the patient fever pattern has improved and the patient white count has normalized once again discussed with the nursing staff to apply Triad cream which was discussed yesterday but not applied and monitor clinical course closely 12/29/2023 Patient is seen and evaluated with family members at bedside; remains intubated and mechanically ventilated -- ABG showed a pO2 of 105 pCO2 31 pH of 7.45. Remains on Precedex; multiple antibiotics and antifungal including Eraxis daptomycin and Zosyn. -- chest x-ray is showing improvement in his right upper lobe airspace disease/pulmonary abscess. Right lower lobe seems about the same with chronic opacity and possibly some small right-sided pleural effusion. --Family is at bedside, patient is arousable but does not follow any instructions. Gets extremely restless and agitated easily hence patient is receiving Dilaudid which seems to be working much better for this patient than benzodiazepines --possibly transfer the patient to a select care specialty. 12/30/2023 Evaluated in follow-up in the intensive care unit. He remains on the mechanical ventilator. Status post tracheostomy. There has been a decrease in the amount of leakage around the J-tube site he continues on a gravity flow. TPN is infusing tube feedings remain on hold at this time. No bowel movement reported for the last 5 days. X-ray today reveals extensive pleural parenchymal opacities throughout the right with at least a moderate pleural effusion. Mild patchy densities left mid and lower lung are also similar. Blood work reveals a white blood cell count 11.5, hemoglobin 8.1, platelet count of 78, sodium 142, potassium 4.2, BUN of 42, creatinine of 1.22, Phos of 2.3, magnesium 1.9. Patient continues on IV anidulafungin IV Zerbaxa IV daptomycin. Patient is currently sedated with propofol and also Precedex which is currently on hold at this time. December 31, 2023: ICU. Patient continues to do poorly. On propofol 35 mics. Also getting IV Dilaudid and IV Ativan.. Telemetry shows sinus rhythm. J-tube feeding has been discontinued. Significant output through the Abarca bag and around the G-tube site. Patient also putting out through the RAYA drain on the right side. Getting TPN and lipids. Patient is antimicrobial include iv aniedulefungin, IV ceftolozane/tazobactam, IV daptomycin Advance care planning [October 31, 2023] I met with patient's at the bedside. Went through in detail with patient is overall very poor clinical status. Chances of any meaningful recovery next to minimal. I also did mention that patient in my opinion was not stable to go to chronic ventilator setting. I suggested comfort care/hospice. I did not feel and why all honesty that patient is benefiting any further from the treatment we are giving him in fact causing probably more suffering. I also spoke to patient's daughter outside in the waiting room. Total time spent about 50 minutes with over 30 minutes of discussion. Later I called Dr. Luther JIMENEZ the dock clerk after he received a text that family was expressing that some physician expressed he was doing better and giving hope. I spoke to nurse Lemos in the evening and she and Dr. JIMENEZ did go and talk to patient's family at the bedside later. January 01, 2024: ICU. FiO2 30 and a PEEP of 5. Continues to have increased drainage at the G-tube site. Wound VAC in place over the incision. RAYA drain continues to put out excretions. Good urine output. Drips include IV propofol at 20 mics, also getting IV Ativan and Dilaudid. Patient also keeping getting TPN lipids. Spoke to the patient's at the bedside. No further questions. I did speak to Dr. Irby from general surgery. Hence it is both our impression again that changing the tube will not make any difference to the bigger picture. And probably futile. Dr. Irby will be speaking to the family today. David from aids social worker did ask about of family meeting. I did reiterate that I spoken at length to the a few times and also the daughter. Dr. Jimenez also spoke to the and Dr. Irby will be speaking with the today. Prognosis remains to be very poor. I did tell the in my opinion probably the patient is not r a candidate for long-term facility. Will dock clerk Dr. Jimenez determine if the patient is a candidate for long-term chronic ventilator facility. January 02, 2024: ICU. FiO2 30 PEEP of 5. Telemetry sinus rhythm. Drips include propofol at 20 mics. Patient getting TPN lipids. Receiving 1 unit of packed red blood cell. Patient was having a breakdown around the tracheostomy stoma site. With a cuff leak. G-tube site is continues to have increasing output. Wound VAC in place. RAYA drains also having increasing output. Patient sister and daughter from [place] from out of town. Earlier they spoke at length with Dr. alford from general surgery. Prognosis remains poor. January 03, 2024: ICU. FiO2 30 PEEP of 5. On propofol. 50 mics. Getting TPN lipids. Sinus rhythm. Wound VAC in place. Drainage around the j-tube site. RAYA drain continues to drain. Patient somewhat sedated. at the bedside. Later aids social worker David inform me that the surgical team Dr. Irby has suggested possible you have [facility], to which family is trying to obtain transferred to. Per Dr. Jimenez note patient has been decline by long-term care twice. Prognosis remains poor. at the bedside. Had no questions. Brother Nathan is present. January 04, 2024: ICU. FiO2 30 PEEP of 5. Propofol was held this morning. Getting TPN lipids. Sinus rhythm. Wound VAC remains in place. Continues to have drainage around the J-tube. RAYA drain continues to have output. at the bedside. She had no questions. Antibiotics in place. January 05, 2024: ICU. FiO2 30 PEEP of 5. Audibly sounding congested. Getting TPN lipids. Sinus rhythm. Wound VAC in place. Drainage around J-tube site. RAYA output continues. No family at bedside. Getting antibiotics. Lethargic January 06, 2024: ICU. FiO2 30 PEEP of 5. Patient is been off propofol since yesterday. Does move his head about. Try to open his eyes sometimes. Sinus rhythm. Blood pressure is running high yesterday. Started on Cleviprex. Hydralazine is being added. Continue to get TPN lipids. J-tube site remains excoriated. Wound VAC in place. RAYA output about 40 to 50 cc is a 12-hour shift. Patient elder daughter at the bedside. Eraxis was discontinued on January 02. Daptomycin is being discontinued by ID. Continue ceftolo'szone. CT abdomen pelvis done today: 3.1 cm organized fluid collection within the rectovesicular space concerning for abscess. No change in right upper lung 4.9 cm fluid collection with a fluid level. For possible pulmonary abscess. Moderate size right lung base multiloculated hydropneumothorax possibly abscess. Additional areas of air bronchograms. January 07, 2024: ICU. FiO2 30 PEEP of 5. Patient was taken down for pigtail drainage of the right lung abscess. About 200 cc of pus was obtained. Nurse informed me when they told him about for the procedure a lot of pus gushed out from the tracheostomy site. Dr. Love at the bedside did a bronchoscopy. Some pus was aspirated. No obvious fistula was noted. Patient is being back on Cleviprex drip. TPN lipids. Active Medications Acetaminophen (Acetaminophen Suppository 650 Mg Supp) 650 mg RECTAL Q6HR PRN PRN Reason: Fever Albuterol/Ipratropium (Ipratropium-Albuterol 3 Ml Neb) 3 ml INHALATION RT-QID [facility] Last Admin: 01/07/24 14:41 Dose: 3 ml Albuterol/Ipratropium (Ipratropium-Albuterol 3 Ml Neb) 3 ml INHALATION RT-Q2H PRN PRN Reason: Shortness Of Breath Or Wheezing Last Admin: 01/07/24 03:57 Dose: 3 ml Bisacodyl (Bisacodyl 10 Mg Supp) 10 mg RECTAL DAILY [facility] Last Admin: 01/07/24 08:37 Dose: 10 mg Chlorhexidine Gluconate (Chlorhexidine Gluconate 15 Ml Cup) 15 ml MUCOUS MEM BID [facility] Last Admin: 01/07/24 08:36 Dose: 15 ml Darbepoetin Scooby (Darbepoetin Scooby 40 Mcg/0.4 Ml Syringe) 40 mcg SQ Q7D [facility] Last Admin: 01/07/24 08:36 Dose: 40 mcg Dextrose/Water (Dextrose 50% Syringe 50 Ml) 25 ml IVP PER PROTOCOL PRN; Protocol PRN Reason: Hypoglycemia Last Admin: 01/03/24 06:18 Dose: 25 ml Dextrose/Water (Dextrose 50% Syringe 50 Ml) 50 ml IVP PER PROTOCOL PRN; Protocol PRN Reason: Hypoglycemia Last Admin: 12/25/23 18:03 Dose: 50 ml Hydralazine HCl (Hydralazine Hcl 20 Mg/Ml 1 Ml Vial) 10 mg IVP Q6HR PRN PRN Reason: SBP >140 Last Admin: 01/07/24 00:19 Dose: 10 mg Hydromorphone HCl (Hydromorphone 2 Mg/Ml 1 Ml Syringe) 1.5 mg IVP Q4H [facility] Last Admin: 01/07/24 12:50 Dose: 1.5 mg Ceftolozane/Tazobactam 3 gm/ (Sodium Chloride) 100 mls @ 100 mls/hr IV Q8H [facility]; Protocol Stop: 01/07/24 23:59 Last Admin: 01/07/24 08:37 Dose: 100 mls/hr Fat Emulsion Intravenous 250 (ml/ IV Solution) 250 mls @ 21 mls/hr IV TuThSa [facility] Last Admin: 01/07/24 08:38 Dose: 21 mls/hr Parenteral Vitamin Supplement 10 ml/ Zinc/Copper/Manganese/Selenium 1 ml/ Sodium Acetate 30 meq/ Magnesium Sulfate 1.25 gm/ Calcium Gluconate 1 gm/Potassium Phosphate 6 mmol/Amino Acids/Dextrose 2,040.5 mls @ 90 mls/hr IV .[id number] [facility] Stop: 01/08/24 02:59 Last Admin: 01/07/24 03:40 Dose: 90 mls/hr Clevidipine 25 mg/ IV Solution 50 mls @ 2 mls/hr IV .Q24H [facility]; Protocol Last Admin: 01/07/24 08:58 Dose: 2 mg/hr, 4 mls/hr Parenteral Vitamin Supplement 10 ml/ Zinc/Copper/Manganese/Selenium 1 ml/ Sodium Acetate 16 meq/ Magnesium Sulfate 0. 625 gm/ Calcium Gluconate 0.5 gm/ Potassium Phosphate 6 mmol / Amino Acids/Dextrose 1,027.25 mls @ 90 mls/hr IV .BY DURATION [facility] Sodium Acetate 16 meq/Magnesium Sulfate 0.625 gm/Calcium Gluconate 0.5 gm/Potassium Phosphate 6 mmol/Amino Acids/Dextrose 1,016.25 mls @ 90 mls/hr IV .BY DURATION [facility] Propofol 1,000 mg/ IV Solution 100 mls @ 8.757 mls/hr IV .[id number] [facility]; Protocol Last Admin: 01/07/24 15:12 Dose: 15 mcg/kg/min, 8.757 mls/hr Insulin Aspart (Insulin Aspart (Novolog) 100 Unit/Ml Vial) 0 unit SQ 000 0,0600,1200,1800 [facility]; Protocol Last Admin: 01/07/24 12:49 Dose: 2 unit Levetiracetam (Levetiracetam Iv 500 Mg/5 Ml Vial) 250 mg IVP Q24HR [facility] Last Admin: 01/07/24 08:36 Dose: 250 mg Lorazepam (Lorazepam 2 Mg/Ml Inj) 1 mg IV Q6HR PRN PRN Reason: Agitation Last Admin: 01/06/24 09:55 Dose: 1 mg Miscellaneous Information (Magnesium Replacement Protocol 1 Each Misc) 1 each MISCELLANE DAILY PRN; Protocol PRN Reason: Per Protocol Miscellaneous Information (Potassium Replacement Protocol 1 Each Misc) 1 each MISCELLANE DAILY PRN; Protocol PRN Reason: Per Protocol Multi-Ingred Cream/Lotion/Oil/Oint (Hydrophilic Cream 180 Gm Tube) 1 applic TOPICAL BID [facility]; Protocol Last Admin: 01/07/24 08:38 Dose: 1 applic Multi-Ingredient Ointment (Zinc Oxide 20% Oint 28.4 Gm Tube) 1 applic TOPICAL BID PRN; Protocol PRN Reason: Skin Irritation Naloxone HCl (Naloxone 0.4 Mg/Ml 1 Ml Vial) 0.2 mg IV Q2M PRN PRN Reason: Opioid Reversal Pantoprazole Sodium (Pantoprazole 40 Mg/10 Ml Vial) 40 mg IVP BID [facility] Last Admin: 01/07/24 08:36 Dose: 40 mg Petrolatum (Zinc Oxide Paste (Z-Guard) 1 Applic) 1 applic TOPICAL BID [facility]; Protocol Last Admin: 01/07/24 08:39 Dose: 1 applic Past medical history to include: GERD Social history: . No smoking. Physical examination: VITAL SIGNS: 103, 28, 1 3625, GENERAL: Sedated getting TPN and lipids EYES: Pupils equal. Conjunctiva edouard l. HEENT: External appearance of nose and ears normal, tracheostomy-. NECK: JVD unable to assess; masses not palpable. HEART: First and second heart sounds are normal; edema, present LUNGS: Respiratory rate increased, decreased breath sounds ABDOMEN: Soft, some tenderness. Liver spleen not palpable, no masses palpable..jejunostomy tube-dressing in place, . RAYA drain. Incision with stitches with - wound VAC PSYCH: Lethargic NEURO: Patient sedated INVESTIGATIONS, reviewed in the clinical context: January 06: White count 11.4 hemoglobin 7.4 potassium 3[address] abdomen pelvis [January 05]: 3.1 cm organized fluid collection within the rectovesicular space concerning for abscess. No change in right upper lung 4.9 cm fluid collection with a fluid level. For possible pulmonary abscess. Moderate size right lung base multiloculated hydropneumothorax possibly abscess. Additional areas of air bronchograms. January 05: White count 10.6 hemoglobin 7.6 platelets 111 sodium 137 potassium 3.5 BUN 44 creatinine 0.95 January 03: White count 13.4 hemoglobin 8.1 platelets 95 potassium 5.2 creatinine 1.1 albumin 1.8 Sputum culture [December 24] Citrobacter freundii, Pseudomonas aeruginosa Blood culture [December 24] Staphylococcus pettenkoferi December 24: White count 1.5 hemoglobin 8.2 platelets 106 potassium 3.8 BUN [address] chest abdomen without contrast [December 16] right upper lung cavitary lesion with air-fluid level in the posterior aspect and a larger cavitary lesion possibly within the lung parenchyma itself. Extending down towards the diaphragm additional airspace opacities in the left lung base. December 09: White count 26.1 hemoglobin 8.6 platelets 154 potassium 4.1 BUN 86 creatinine 3.31. Hemoglobin this morning was 6.6 prior to transfusion EEG-evidence of generalized cerebral dysfunction and sporadic intermittent higher amplitude sharply contoured waves mainly bifrontal. Showing cortical irritability. 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 Serosal fibrous adhesions. Viable margins. Sputum culture: [November 25]: Citrobacter freundii. Pseudomonas aeruginosa November 20: White count 14.4 hemoglobin 8.8 platelets 229 potassium 4.1 BUN [address] scan abdomen [November 19] possible small bowel obstruction Stool: C. difficile negative November 15: WBC 13 hemoglobin 7.7 platelets 248 potassium 4.3 creatinine 0.87 2D echo: EF 55 to 60%. Kidneys bladder: Unremarkable November 13: White count 12 hemoglobin 6.9 platelets 276 potassium 4.4 creatinine 1.21 magnesium 1.8 iron 6 TIBC 365% saturation 1.64 transferrin 261 ferritin 34.6 B12 569 folate 4.4 November 11: Creatinine 0.86 EGD: Large amount of retained solid liquid food noted in the stomach. Large superficial gastric antral ulceration involving most of the antrum extending into the pylorus causing pyloric stenosis. Biopsies were obtained. Chest x-ray film personally reviewed by me-scattered infiltrates Assessment plan: -Aspiration and gram-negative bacterial pneumonia a bilateral initially from retained gastric contents mostly food and liquids, causing acute hypoxic respiratory failure: On presentation: Subsequent bacterial pneumonia sputum culture November 25: Citrobacter freundii, Pseudomonas aeruginosa. December 13: Klebsiella oxytoca, Pseudomonas aeruginosa IV meropenem-was received originally. Also received IV Zosyn. , IV ceftolozane/tazobactam, IV daptomycin-discontinued -Breakdown of tracheostomy stoma site. Being followed by dock clerk -Sepsis with septicemia from above Antibiotics -Right leg abscess, pigtail catheter placed January 07, 2024. Initially about 200 cc of pus obtained. During the procedure large amount of pus poured out of the tracheostomy site when patient was rolled on the left side. Status post bronchoscopy with some lavage on 01/07/2024 - lung abscess larger 1 on the right side-patient cultures are growing Pseudomonas and Klebsiella oxytoca: Slow to respond , daptomycin, discontinued.IV ceftolozane/tazobactam -Acute pulmonary edema and fluid overload from hypoalbuminemic state and fluids from IV.:: Has been getting Lasix and dialysis: Both held -Altered mentation. Possibly encephalopathy. Could be delirium.: Not improving CT brain [December 06] nothing acute Neurology following EEG-evidence of generalized cerebral dysfunction and sporadic intermittent higher amplitude sharply contoured waves mainly bifrontal. Showing cortical irritability. Keppra was started on December 07 -Critical care poly- Pedro neuropathy: Slow to respond PT OT -Gallstones, asymptomatic -Small l bowel perforation at site of jejunostomy tube tip with balloon..: Portion of small bowel resected. On November 24. New J-tube was placed.- drainage to gravity:-Now discontinued December 19: J-tube blocked. J-tube replaced on December 20 over wire December 21: Leaking around the J-tube site. Feeding held December 23: J feeding was started yesterday evening but again started leaking increasingly around the J-tube site-feeding held again December 24: J-tube feeding has been held. Patient is currently having increased drainage from the J-tube site -Acute kidney injury. Possible ATN from hypotensive shock: Resolved Renal ultrasound unremarkable. Started on renal replacement therapy on November 28. Last hemodialysis on December 17. Being followed by an nephrology. Good urine output. -Nutrition Jejunostomy tube placed November [address] Ewing Received TPN-this was discontinued. TPN lipids restarted on December 24 -Lung abscess, not improving Antibiotics to continue. Pulmonary and ID following -Midline abdominal incision wound dehiscence Wound VAC placed -Acute recurrent atrial fibrillation-converted to sinus rhythm Received IV amiodarone. Cardiology following Lopressor -Acute hypoxic respiratory failure from aspiration pneumonia, status post ventilator assisted: Reintubated November 25. FiO2 35 PEEP of 5 Tracheostomy tube-by Dr. Zepeda on December 09 -Septic shock, recovered -Hypertension, recurrent Restarted Cleviprex-yesterday. Hydralazine added -Intermittent hypotension: Corrected Intermittent use of Levophed. 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 Also anemia of blood draw. Iron deficiency anemia Received total of 6 units of blood IV iron. -Severe thrombocytopenia. Would consider coagulation disorder secondary to infection., In the setting of underlying lymphoma.: Fluctuating with infection Hematology following. -Acute blood loss anemia, -Sacral stage II decub ulcer Dressing in place -Hypokalemia, multiple causes -Hypoglycemia -GERD PPI -Acute diarrhea secondary to tube feeding.: Resolved C. difficile ruled out. -Large superficial gastric antral ulceration involving the gastric antrum extending into the pylorus with gastric outlet obstruction. 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 -Full code Cleviprex remains. Status post bronchoscopy and pigtail catheter placement of the right abscess. Prognosis remains very guarded. Past Medical History Past Medical History: GERD/Reflux History of Any Multi-Drug Resistant Organisms: None Reported Past Surgical History: Heart Catheterization Additional Past Surgical History / Comment(s): colonsocopy,spinal injection, Past Anesthesia/Blood Transfusion Reactions: No Reported Reaction Past Psychological History: No Psychological Hx Reported Smoking Status: Never smoker Past Alcohol Use History: None Reported Past Drug Use History: None Reported
--- NOTE | 2024-01-07 15:27 | CT ---
EXAMINATION TYPE: CT chest tube insertion DATE OF EXAM: 01/07/2024 COMPARISON: CLINICAL INDICATION: Male, 73 years old with history of see IR consult for order details; chest tube right side CT DLP: 1836 mGycm The procedure is discussed with the patient, the risks, complications, benefits and alternatives, wer e discussed and any questions were answered. Informed consent was obtained. The patient is placed l ateral sedation on the CT table, prepped and draped in the usual sterile fashion. Utilizing a 18-gauge core biopsy needle access into right pleural abscess\empyema was achieved with p lacement of a 0.018 guidewire. Conversion to an 0.035 system. Serial dilation to 8 [place] and placeme nt of an 8 [place] drainage catheter. Repeat imaging demonstrated ideal placement of the catheter. Sma ll samples obtained and sent to pathology for analysis.. Pathology pending. All elements of maximal barrier and sterile technique were utilized. The patient remained stable throughout the procedure w ith no immediate postprocedural complication. IMPRESSION: 1. Successful CT guided right chest tube insertion for empyema versus pulmonary abscess. [facility], , 01/07/2024 3:25 PM
--- NOTE | 2024-01-07 15:48 | P.PN ---
Progress Note - Text Progress Note Date: 01/07/24 HISTORY OF PRESENT ILLNESS: Patient noted to have some purulent drainage from tracheostomy site. He did have bronchoscopy today in which some purulent fluid was aspirated. There was no evidence of fistula on bronchoscopy. Patient also did have IR drainage of Lung Abscess. PHYSICAL EXAM: VITAL SIGNS: Reviewed. GENERAL: no acute distress. HEENT: Tracheostomy site clean dry and intact ABDOMEN: Soft. Nondistended. Midline incision with wound VAC in place and intact. J-tube with drainage around site. ASSESSMENT: 1. 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 Status post J-tube placement and revision for small bowel obstruction 2. Abdominal wound dehiscence status post wound VAC placement 3. Status post tracheostomy PLAN: -Continue TPN for nutrition support -Keep J-tube to drainage and hold tube feeds -Wound VAC to be changed Saturday/Saturday/Saturday -No acute surgical intervention planned Dick Ewing DO [facility] [phone]
[2024-01-07] MEDS: CISATRACURIUM 2 MG/ML 5 ML VIAL IV ONE ×2 (15:58→17:54)
--- NOTE | 2024-01-07 16:21 | XR ---
EXAMINATION TYPE: XR chest 1V portable DATE OF EXAM: 01/07/2024 4:15 PM COMPARISON: Chest radiographs from 01/05/2024. CLINICAL INDICATION: Male, 73 years old with history of post procedure; check for pneumothorax. TECHNIQUE: XR chest 1V portable Frontal view of the chest. FINDINGS: FINDINGS: Lungs/Pleura: Blunting of the right costophrenic angle. Scattered airspace opacities. There is no evidence of pleural effusion, focal consolidation, or pneumothorax. Pulmonary vascularity: Unremarkable. Heart/mediastinum: Cardiomediastinal silhouette is unremarkable. Musculoskeletal: No acute osseous pathology. Other findings: None Lines/Tubes: Tracheostomy cannula tip projecting over the trachea. [id number] projecting over the right hemithorax with distal tip projecting over the right ventricl e Left-sided PICC with distal tip at the superior vena cava/brachiocephalic confluence. Right thoracotomy tube present without appreciable pneumothorax.. IMPRESSION: Improved aeration of the right lung airspace opacities and persistent pleural effusion. Right thoracotomy now in place no appreciable pneumothorax. [facility], , 01/07/2024 4:19 PM
[2024-01-07] MEDS: CISATRACURIUM 200 MG in SODIUM CHLORIDE 0.9% 180 ML IV SCH (17:48)
[2024-01-07 18:38] LABS: Glucose,Whole Blood 157 mg/dL (70-110)
[2024-01-07] MEDS: ARTIFICIAL TEARS-HYPROMELLOSE DROPS 15 ML BTL BOTH EYES SCH (19:52)
--- NOTE | 2024-01-07 21:20 | P.PN ---
Subjective Progress Note Date: 01/07/24 Principal diagnosis: Reason for follow-up is pneumonia and bacteremia Patient is 73-year-old with male initial presentation to the hospital on 11/11/2021 for after the patient did have aspiration while undergoing elective endoscopy, diagnosed with a non-Hodgkin of, subsequently did have explained laparotomy for perforated small bowel abdominal washout and feeding jejunostomy tube patient did require dialysis catheter placement for dialysis during this hospital stay and tracheostomy for respiratory failure, infectious was consulted for fever. On today's evaluation that is 01/07/2024,the patient continues to be afebrile patient remains to be intubated on the vent through the trach FiO2 is currently stable at 30% no significant purulent secretion through the ET patient is hemodynamic stable not requiring any pressor support and no diarrhea has been reported by the nursing staff. Patient white count is 11.4 creatinine 0.86 Objective - Vital Signs Vital signs: Vital Signs Temp 97.9 F 01/07/24 02:30 Pulse 97 01/07/24 07:59 Resp 22 01/07/24 07:00 BP 136/85 01/07/24 07:00 Pulse Ox 94 L 01/07/24 07:00 FiO2 30 01/07/24 10:34 Intake & Output 01/06/24 01/07/24 01/07/24 18:59 06:59 18:59 Intake Total 1486 1328 584 Output Total 1315 1350 625 Balance 171 -22 -41 Weight 98 kg 97.3 kg Intake: IV 1436 1328 450 0.9 Normal Saline @ KVO 120 10 Ceftolozane/Tazobactam 3 100 gm In Sodium Chloride 0.9 % 100 ml @ 100 mls/hr IV Q8H [facility] Rx#:[id number] Magnesium 100 Normal Saline Pressure 36 38 Saline Potassium Chloride 10 meq 200 In Water For Injection 1 100ml.bag @ 100 mls/hr IVPB Q1H [facility] Rx#: [id number] TPN 1080 1080 450 Intake, IV Titration 50 134 Amount Clevidipine Butyrate 25 50 50 mg In Empty Bag 1 bag @ 1 MG/HR 2 mls/hr IV .Q24H [facility] Rx#:[id number] Fat Emulsion 20% 250 ml 84 In Empty Bag 1 bag @ 21 mls/hr IV TuThSa [facility] Rx#: [id number] Output: Drainage 120 60 Right Abdomen 120 60 Urine 1195 1290 625 Other: Voiding Method Indwelling Catheter Indwelling Catheter ABP, PAP, CO, CI - Last Documented Arterial Blood Pressure 152/62 - Exam GENERAL DESCRIPTION: An elderly male lying in bed in no distress RESPIRATORY SYSTEM: Unlabored breathing , decreased breath sounds at bases HEART: S1 S2 regular rate and rhythm , ABDOMEN: Soft , no tenderness EXTREMITIES: No edema feet - Labs CBC & Chem 7: 01/07/24 03:40 01/07/24 03:40 Labs: Abnormal Lab Results - Last 24 Hours (Table) 01/06/24 01/07/24 01/07/24 Range/Units 18:09 00:07 03:40 WBC (3.8-10.6) k/uL RBC (4.30-5.90) m/uL Hgb (13.0-17.5) gm/dL Hct (39.0-53.0) % RDW (11.5-15.5) % Plt Count (150-450) k/uL PT (10.0-12.5) sec INR (<1.2) ABG pCO2 (35-45) mmHg ABG O2 Saturation (94-97) % Hemoglobin (13.0-17.5) gm/dL Sodium 136 L (137-145) mmol/L Potassium 3.4 L (3.5-5.1) mmol/L Chloride 113 H (98-107) mmol/L Carbon Dioxide 18 L (22-30) mmol/L BUN 44 H (9-20) mg/dL Glucose 140 H (74-99) mg/dL POC Glucose (mg/dL) 177 H 166 H (70-110) mg/dL Calcium 7.3 L (8.4-10.2) mg/dL Phosphorus 2.2 L (2.5-4.5) mg/dL 01/07/24 01/07/24 01/07/24 Range/Units 03:40 05:51 06:05 WBC 11.4 H (3.8-10.6) k/uL RBC 2.47 L (4.30-5.90) m/uL Hgb 7.4 L (13.0-17.5) gm/dL Hct 22.8 L (39.0-53.0) % RDW 18.0 H (11.5-15.5) % Plt Count 145 L (150-450) k/uL PT (10.0-12.5) sec INR (<1.2) ABG pCO2 30 L (35-45) mmHg ABG O2 Saturation 98.9 H (94-97) % Hemoglobin 7.3 L (13.0-17.5) gm/dL Sodium (137-145) mmol/L Potassium (3.5-5.1) mmol/L Chloride (98-107) mmol/L Carbon Dioxide (22-30) mmol/L BUN (9-20) mg/dL Glucose (74-99) mg/dL POC Glucose (mg/dL) 166 H (70-110) mg/dL Calcium (8.4-10.2) mg/dL Phosphorus (2.5-4.5) mg/dL 01/07/24 Range/Units 09:30 WBC (3.8-10.6) k/uL RBC (4.30-5.90) m/uL Hgb (13.0-17.5) gm/dL Hct (39.0-53.0) % RDW (11.5-15.5) % Plt Count (150-450) k/uL PT 13.0 H (10.0-12.5) sec INR 1.2 H (<1.2) ABG pCO2 (35-45) mmHg ABG O2 Saturation (94-97) % Hemoglobin (13.0-17.5) gm/dL Sodium (137-145) mmol/L Potassium (3.5-5.1) mmol/L Chloride (98-107) mmol/L Carbon Dioxide (22-30) mmol/L BUN (9-20) mg/dL Glucose (74-99) mg/dL POC Glucose (mg/dL) (70-110) mg/dL Calcium (8.4-10.2) mg/dL Phosphorus (2.5-4.5) mg/dL Assessment and Plan (1) Sepsis Current Visit: Yes Status: Acute Code(s): A41.9 - SEPSIS, UNSPECIFIED ORGANISM SNOMED Code(s): 81756353 (2) Pneumonia Current Visit: Yes Status: Acute Code(s): J18.9 - PNEUMONIA, UNSPECIFIED ORGANISM SNOMED Code(s): 852131712 (3) Bacteremia Current Visit: Yes Status: Acute Code(s): R78.81 - BACTEREMIA SNOMED Code(s): 3047173 Plan: 1patient with pneumonia with a sputum showing Citrobacter and Pseudomonas aeruginosa, the patient sputum repeat is still growing Citrobacter and Pseudomonas, Pseudomonas that is a drug-resistant and resistant to Zosyn, patient is currently on Zerbaxa day number 10 out of 10, however keeping in mind the new findings of lung abscess on the CT status post drainage catheter placement by interventional radiology however they did not record any fluid as reported by nursing staff may need CT surgery evaluation and for now we will continue with Zerbaxa 2-patient also have evidence of retro vesicular abscess on the CT abdominal pelvis and no need to have either CT-guided versus open drainage General Surgery is on the case Dictation was produced using [employer] dictation software. please excuse any gra mmatical, word or spelling errors. Time with Patient: Less than 30
[2024-01-07 23:23] LABS: Glucose,Whole Blood 174 mg/dL (70-110)
[2024-01-08 05:05] LABS: HGB 7.1 gm/dL (13.0-17.5); RBC 2.34 m/uL (4.30-5.90); WBC 17.3 k/uL (3.8-10.6)
[2024-01-08 05:06] LABS: Anisocytosis Slight; Hypochromasia Marked; MCH 30.2 pg (25.0-35.0); MCHC 32.1 g/dL (31.0-37.0); MCV 93.9 fL (80.0-100.0); Mean Platelet Volume 8.7; Platelet Count 157 k/uL (150-450); RDW 18.1 % (11.5-15.5)
[2024-01-08 05:28] LABS: African American GFR (CKD) >90 (>60 ml/min/1.73 sqM); Anion Gap 4 mmol/L; Blood Urea Nitrogen 45 mg/dL (9-20); Calcium 7.4 mg/dL (8.4-10.2); Carbon Dioxide 19 mmol/L (22-30); Chloride 112 mmol/L (98-107); Glucose 208 mg/dL (74-99); Magnesium 1.8 mg/dL (1.6-2.3); Non-African American GFR(CKD) 87 (>60 ml/min/1.73 sqM); Phosphorus 2.9 mg/dL (2.5-4.5); Potassium 3.4 mmol/L (3.5-5.1); Sodium 135 mmol/L (137-145)
[2024-01-08 05:40] LABS: ABG Base Excess -4.9 mmol/L; ABG HCO3 22 mmol/L (21-25); ABG Oxygen Saturation 94.6 % (94-97); ABG PCO2 50 mmHg (35-45); ABG PH 7.25 (7.35-7.45); ABG PO2 76 mmHg (83-108); ABG TCO2 23 mmol/L (19-24); Allen Test Performed? Yes
[2024-01-08 05:51] LABS: Glucose,Whole Blood 218 mg/dL (70-110)
[2024-01-08] MEDS ORDERED: Magnesium Replacement Protocol 1 EACH MISC MISCELLANE PRN (06:18)
[2024-01-08] MEDS: MAGNESIUM SULFATE-D5W PMX 1 GM in DEXTROSE/WATER 1 100ML.BAG IVPB ONE (06:28)
[2024-01-08] MEDS: POTASSIUM CHLORIDE 10 MEQ in WATER FOR INJECTION 1 100ML.BAG IVPB SCH (06:29)
--- NOTE | 2024-01-08 07:27 | XR ---
EXAMINATION TYPE: XR chest 1V DATE OF EXAM: 01/08/2024 5:33 AM COMPARISON: 01/07/2024 CLINICAL INDICATION: Male, 73 years old with history of vent, TECHNIQUE: XR chest 1V view(s) obtained. FINDINGS: The heart size is normal. The pulmonary vasculature is normal. Minimal infiltrate is at the left base. This is increasing from comparison. There is a infiltrate at the right lower lobe. Small to moderate right pleural effusion is present. T racheostomy tube is in the midline. Right central venous catheter is present with the tip in the prox imal right atrium. Drainage catheter is in the lateral right lower lung field. IMPRESSION: 1. Stable chest x-ray from comparison. 2. Drainage catheter right lower chest space. Moderate fluid is present on the right. [facility], , 01/08/2024 7:25 AM
[2024-01-08] MEDS: CEFTOLOZANE/TAZOBACTAM 3 GM in SODIUM CHLORIDE 0.9% 100 ML IV SCH (08:29)
[2024-01-08] MEDS: SODIUM BICARB 8.4% 50 ML SYR (1 MEQ/ML) IV STA (09:01)
[2024-01-08] MEDS: DEXTROSE 5% IN WATER 1,000 ML with SODIUM BICARB (1 MEQ/ML) 150 ML IV SCH (09:28)
--- NOTE | 2024-01-08 10:17 | P.PN ---
Subjective Patient is seen in follow-up for acute kidney injury. Patient underwent exploratory laparotomy with small bowel obstruction NG tube replacement Sep tem2023. Nonoliguric. Started on hemodialysis November 29, 2023. Last dialysis December 18, 2023. Status post tracheostomy December 10, 2023. Renal function has improved. Receiving TPN. Off vasopressors. Underwent drainage of lung abscess yesterday. Vital signs stable. General: Resting in bed. HEENT: Tracheostomy noted. LUNGS: Scattered rhonchi. Chest tube noted. HEART: Regular rate and rhythm. ABDOMEN: No drainage. EXTREMITITES: Trace edema. Objective - Vital Signs Vital signs: Vital Signs Temp 98.6 F 01/08/24 04:00 Pulse 92 01/08/24 08:01 Resp 20 01/08/24 06:30 BP 99/56 01/08/24 02:00 Pulse Ox 94 L 01/08/24 06:30 FiO2 30 01/08/24 07:33 Intake & Output 01/07/24 01/08/24 01/08/24 18:59 06:59 18:59 Intake Total 1361 3979.150 1321.021 Output Total 1300 1080 495 Balance 61 500.222 751.021 Weight 97.3 kg 99 kg Intake: IV 1080 1236 1072 0.9 Normal Saline @ KVO 120 Ceftolozane/Tazobactam 3 100 gm In Sodium Chloride 0.9 % 100 ml @ 100 mls/hr IV Q8H [facility] Rx#:[id number] Dextrose 5% in Water 1, 300 000 ml @ 75 mls/hr IV . [id number] [facility] with Sodium Bicarb (1 Meq/ml) 150 ml Rx#:[id number] Magnesium 100 Normal Saline Pressure 36 12 Saline Potassium Chloride 10 meq 200 In Water For Injection 1 100ml.bag @ 100 mls/hr IVPB Q1H [facility] Rx#: [id number] TPN 1080 1080 360 Intake, IV Titration 281 344.222 174.021 Amount Cisatracurium 200 mg In 181.270 145.561 Sodium Chloride 0.9% 180 ml @ 1 MCG/KG/MIN 5.838 mls/hr IV .Q24H [facility] Rx#: [id number] Clevidipine Butyrate 25 50 45.900 mg In Empty Bag 1 bag @ 1 MG/HR 2 mls/hr IV .Q24H [facility] Rx#:[id number] Fat Emulsion 20% 250 ml 231 In Empty Bag 1 bag @ 21 mls/hr IV TuThSa [facility] Rx#: [id number] propofoL 1,000 mg In 117.052 28.46 Empty Bag 1 bag @ 15 MCG/ KG/MIN 8.757 mls/hr IV . [id number] [facility] Rx#:[id number] Output: Chest Tube Drainage 90 Chest Tube Right 90 Drainage 100 80 Right Abdomen 100 80 Urine 1300 890 415 Other: Voiding Method Indwelling Catheter Indwelling Catheter ABP, PAP, CO, CI - Last Documented Arterial Blood Pressure 102/51 - Labs CBC & Chem 7: 01/08/24 04:48 01/08/24 04:48 Labs: Abnormal Lab Results - Last 24 Hours (Table) 01/07/24 01/07/24 01/07/24 Range/Units 09:30 12:44 18:36 WBC (3.8-10.6) k/uL RBC (4.30-5.90) m/uL Hgb (13.0-17.5) gm/dL Hct (39.0-53.0) % RDW (11.5-15.5) % PT 13.0 H (10.0-12.5) sec INR 1.2 H (<1.2) ABG pH (7.35-7.45) ABG pCO2 (35-45) mmHg ABG pO2 (83-108) mmHg Hemoglobin (13.0-17.5) gm/dL Sodium (137-145) mmol/L Potassium (3.5-5.1) mmol/L Chloride (98-107) mmol/L Carbon Dioxide (22-30) mmol/L BUN (9-20) mg/dL Glucose (74-99) mg/dL POC Glucose (mg/dL) 162 H 157 H (70-110) mg/dL Calcium (8.4-10.2) mg/dL 01/07/24 01/08/24 01/08/24 Range/Units 23:21 04:48 04:48 WBC 17.3 H (3.8-10.6) k/uL RBC 2.34 L (4.30-5.90) m/uL Hgb 7.1 L (13.0-17.5) gm/dL Hct 22.0 L (39.0-53.0) % RDW 18.1 H (11.5-15.5) % PT (10.0-12.5) sec INR (<1.2) ABG pH (7.35-7.45) ABG pCO2 (35-45) mmHg ABG pO2 (83-108) mmHg Hemoglobin (13.0-17.5) gm/dL Sodium 135 L (137-145) mmol/L Potassium 3.4 L (3.5-5.1) mmol/L Chloride 112 H (98-107) mmol/L Carbon Dioxide 19 L (22-30) mmol/L BUN 45 H (9-20) mg/dL Glucose 208 H (74-99) mg/dL POC Glucose (mg/dL) 174 H (70-110) mg/dL Calcium 7.4 L (8.4-10.2) mg/dL 01/08/24 01/08/24 Range/Units 05:35 05:50 WBC (3.8-10.6) k/uL RBC (4.30-5.90) m/uL Hgb (13.0-17.5) gm/dL Hct (39.0-53.0) % RDW (11.5-15.5) % PT (10.0-12.5) sec INR (<1.2) ABG pH 7.25 L (7.35-7.45) ABG pCO2 50 H (35-45) mmHg ABG pO2 76 L (83-108) mmHg Hemoglobin 6.8 L* (13.0-17.5) gm/dL Sodium (137-145) mmol/L Potassium (3.5-5.1) mmol/L Chloride (98-107) mmol/L Carbon Dioxide (22-30) mmol/L BUN (9-20) mg/dL Glucose (74-99) mg/dL POC Glucose (mg/dL) 218 H (70-110) mg/dL Calcium (8.4-10.2) mg/dL Microbiology - Last 24 Hours (Table) 01/07/24 12:15 Gram Stain - Preliminary Pleural Fluid 01/07/24 15:07 Gram Stain - Preliminary Sputum Assessment and Plan Plan: Assessment: 1. Acute kidney injury secondary to ATN secondary to septic shock. Creatinine 0.86 on admission and up to 5.38 dated November 29, 2023. Urine output improved, now nonoliguric. UA fairly benign. No hydronephrosis noted on imaging. Started on hemodialysis November 29, 2023 due to volume overload. Patient initially had a right femoral catheter placed which subsequently became occluded and a left tunneled femoral catheter was placed December 06, 2023. Renal function back to baseline. 2. Perforated small bowel status post exploratory laparotomy with abdominal washout, small bowel resection and J-tube replacement November 25, 2023. 3. A-fib with RVR. s/p amiodarone drip. Also received digoxin this admission. 4. Recently diagnosed gastric B-cell lymphoma. 5. Septic shock. Likely abdominal source. On IV antibiotics. Blood culture positive for staph. ID following. Dialysis catheter removed. 6. Hypocalcemia secondary to acute kidney injury. Replaced. Improved. 7. Metabolic acidosis secondary to acute kidney injury, TPN. 8. Volume overload. Improved with diuresis and ultrafiltration. 9. Status post tracheostomy December 10, 2023. 10. Anemia. Component of chronic illness and acute blood loss. Received blood transfusions and DDAVP this admission. On Aranesp. 11. Respiratory and metabolic acidosis started on bicarb drip today. 12. Hypernatremia from lack of oral water intake. Status post D5W. Sodium level now normal. Plan: Last dialysis December 18, 2023. No further need at this time. Dialysis catheter removed December 28, 2023. Receiving TPN. Phosphorus to be adjusted with TPN. Avoid nephrotoxins. Preserved EF noted on echocardiogram. Case discussed with family present at bedside. Potassium and magnesium being replaced. Lasix as needed. Started on bicarb drip ICU team this morning.
--- NOTE | 2024-01-08 11:38 | P.PN ---
Subjective Progress Note Date: 01/08/24 01/06/2024, the patient is being seen for a follow-up. The patient remains off sedation. The patient is arousable. Remains profoundly weak and debilitated. He remains on the mechanical ventilator, assist-control mode with rate of 32, tidal volume of 450, FiO2 of 30% with a PEEP of 5. Chest x-ray shows extensive consolidation of the right lung and right upper lobe opacity with a previously described cavity. Blood gas shows a pH of 7.4 with a pCO2 of 34 pO2 of 93. The patient remains on KVO IV fluids. The patient is on TPN for nutritional support at a rate of 90 cc an hour. Fluid balance is +1.3 L over the past 24 hours. The patient is receiving Dilaudid for pain control. While off Dilaudid, he developed hypertension and overnight the patient was started on Cleviprex at 4 mg an hour. RAYA drain has produced around 40 cc over the past 24 hours. The J- tube is nonfunctional. The wound VAC is still in place. The blood work from today shows a white cell count of 10.6 and hemoglobin of 7.6 and a platelet count of 111. Renal function is normalized and the patient's BUN is 44 with a c reatinine of 0.9. Serum bicarb is at 19 with a chloride of 115 and a sodium level at 137. LFTs are normal with an alkaline phosphatase of 222. The sputum sample was positive for Citrobacter and Pseudomonas. The Pseudomonas aeruginosa was quite resistant and the patient is currently on a combination of ceftolozane and tazobactam. Afebrile. Hemodynamically stable. Cardiac rhythm is sinus. On 01/07/2024, the patient remains off sedation. Somewhat encephalopathic. Extremely weak, occasionally follows some simple commands. Unable to raise his arms against gravity. Continues to have respiratory secretions and coughing episodes specially once the effect of Dilaudid wears off. Remains on a mechanical ventilator. He was able to tolerate pressure support of 12 and a PEEP of 5 for a total of 4 hours yesterday. Overnight, the patient was kept on assist-control mode of mechanical ventilation this morning he is on assist- control of 20, tidal volume of 500, FiO2 of 30% with a PEEP of 5. The patient was placed back on pressure support mode of mechanical ventilation this is being done on a daily basis. Blood gas showed a pH of 7.44 with a pCO2 of 30 and pO2 100. Discussed the case with interventional radiology and the patient has a right lung abscess and the patient is going to have a pigtail catheter inserted today. Renal function is normal. TPN is running at a rate of 90 cc an hour. The J-tube is not being utilized at this point. Fluid balance is +149 cc over the past 24 hours. RAYA drain output is noted. Output is serosanguineous. Wound VAC is in place. The patient remains on Cleviprex at 2 mg an hour and the patient receiving hydralazine 10 mg for blood pressure control every 6 hours. He remains on a broad-spectrum antibiotic coverage and he is on ceftolozane tazobactamBlood work from today shows a WBC count of 11.4, hemoglobin of 7.4 and a platelet count of 145. BUN is 44 with a creatinine of 0.8 and sodium levels at 136 and potassium levels at 3.4. Glucose is 166. 01/08/2024, the patient is sedated on propofol and the patient is also paralyzed on Nimbex. Propofol during 50 mcg/kg/min and Nimbex at 4 mcg. The patient had to be sedated and paralyzed as the patient had frequent coughing spells to the point where the patient was unable to ventilate while being on the mechanical ventilator. Noted he had a pigtail catheter inserted yesterday. Pus was drained from his right hemithorax and a total amount of output is around 90 cc over the past 12 hours no purulent material and the patient has a positive airleak. The chest x-ray is still showing an area of consolidation which is quite extensive in the right lung with some improvement in the aeration of the right lung. Tracheostomy tube is in good location. A bronchoscopy was done. Unable to locate a bronchopleural fistula. Therapeutic airway suctioning was done. Respiratory secretions were suctioned out and sent for cultures. The right lung abscess was also sent for cultures. Currently on assist-control at rate of 20, tidal volume of 500, FiO2 of 30% with a PEEP of 5. Blood gas showed pH of 7.25 with a pCO2 of 50 and pO2 of 76. A white cell count of 17.3 with a hemoglobin 7.1 and a platelet count of 157. His sodium level is at 135, potassium levels at 3.4, bicarb is at 19 with a BUN of 45 with a creatinine of 0.8. Phosphorus is at 2.9, magnesium is at 1.8. Blood sugars of 208. He remains on ceftolozane/tazobactam. RAYA drain is still in place. Wound VAC is still in place. Receives TPN for nutritional support. The patient is not receiving enteral feeding. The J-tube is nonfunctional. Objective - Vital Signs Vital signs: Vital Signs Temp 98.6 F 01/08/24 04:00 Pulse 92 01/08/24 08:01 Resp 20 01/08/24 06:30 BP 99/56 01/08/24 02:00 Pulse Ox 94 L 01/08/24 06:30 FiO2 30 01/08/24 07:33 Intake & Output 01/07/24 01/08/24 01/08/24 18:59 06:59 18:59 Intake Total 1361 1580.222 28.46 Output Total 1300 1080 Balance 61 500.222 28.46 Weight 97.3 kg 99 kg Intake: IV 1080 1236 0.9 Normal Saline @ KVO 120 Normal Saline Pressure 36 Saline TPN 1080 1080 Intake, IV Titration 281 344.222 28.46 Amount Cisatracurium 200 mg In 181.270 Sodium Chloride 0.9% 180 ml @ 1 MCG/KG/MIN 5.838 mls/hr IV .Q24H [facility] Rx#: [id number] Clevidipine Butyrate 25 50 45.900 mg In Empty Bag 1 bag @ 1 MG/HR 2 mls/hr IV .Q24H [facility] Rx#:[id number] Fat Emulsion 20% 250 ml 231 In Empty Bag 1 bag @ 21 mls/hr IV TuThSa [facility] Rx#: [id number] propofoL 1,000 mg In 117.052 28.46 Empty Bag 1 bag @ 15 MCG/ KG/MIN 8.757 mls/hr IV . [id number] [facility] Rx#:[id number] Output: Chest Tube Drainage 90 Chest Tube Right 90 Drainage 100 Right Abdomen 100 Urine 1300 890 Other: Voiding Method Indwelling Catheter Indwelling Catheter ABP, PAP, CO, CI - Last Documented Arterial Blood Pressure 102/51 - Exam No acute distress, sedated and paralyzed on a combination of propofol and Nimbex still on the mechanical ventilator. The patient has a tracheostomy tube in place. HEENT examination is grossly unremarkable. Mucous membranes are moist. No oral lesions.. The patient also has a tracheostomy tube in place and the patient has a #8 Shiley tracheostomy tube. Cardiac exam revealed the PMI to be normally situated and sized. The rhythm was regular and no extrasystoles were noted during several minutes of auscultation. The first and second heart sounds were normal and physiologic splitting of the second heart sound was noted. There were no murmurs, rubs, clicks, or gallops. The patient is in sinus tachycardia. Lungs reveal mild scattered rhonchi. No wheezes or crackles. Breath sounds equal. Diminished breath sound lung base bilaterally. Pigtail catheter in the right chest posteriorly located with positive output and positive airleak on the Pleur-evac. Abdomen distended without bowel sounds. J-tube is noted. Mid abdominal wound is covered with a wound VAC and a RAYA drain in place and output is serosanguineous. Extremities are intact. No cyanosis clubbing trace edema lower extremities bilaterally Skin is without rash or lesion. The wound at the Mediport site is dry and the area has been sutured and the site is clean for now. Neurologic examination is brief but nonfocal. Currently, the patient is sedated and paralyzed. - Labs CBC & Chem 7: 01/08/24 04:48 01/08/24 04:48 Labs: Abnormal Lab Results - Last 24 Hours (Table) 01/07/24 01/07/24 01/07/24 Range/Units 09:30 12:44 18:36 WBC (3.8-10.6) k/uL RBC (4.30-5.90) m/uL Hgb (13.0-17.5) gm/dL Hct (39.0-53.0) % RDW (11.5-15.5) % PT 13.0 H (10.0-12.5) sec INR 1.2 H (<1.2) ABG pH (7.35-7.45) ABG pCO2 (35-45) mmHg ABG pO2 (83-108) mmHg Hemoglobin (13.0-17.5) gm/dL Sodium (137-145) mmol/L Potassium (3.5-5.1) mmol/L Chloride (98-107) mmol/L Carbon Dioxide (22-30) mmol/L BUN (9-20) mg/dL Glucose (74-99) mg/dL POC Glucose (mg/dL) 162 H 157 H (70-110) mg/dL Calcium (8.4-10.2) mg/dL 01/07/24 01/08/24 01/08/24 Range/Units 23:21 04:48 04:48 WBC 17.3 H (3.8-10.6) k/uL RBC 2.34 L (4.30-5.90) m/uL Hgb 7.1 L (13.0-17.5) gm/dL Hct 22.0 L (39.0-53.0) % RDW 18.1 H (11.5-15.5) % PT (10.0-12.5) sec INR (<1.2) ABG pH (7.35-7.45) ABG pCO2 (35-45) mmHg ABG pO2 (83-108) mmHg Hemoglobin (13.0-17.5) gm/dL Sodium 135 L (137-145) mmol/L Potassium 3.4 L (3.5-5.1) mmol/L Chloride 112 H (98-107) mmol/L Carbon Dioxide 19 L (22-30) mmol/L BUN 45 H (9-20) mg/dL Glucose 208 H (74-99) mg/dL POC Glucose (mg/dL) 174 H (70-110) mg/dL Calcium 7.4 L (8.4-10.2) mg/dL 01/08/24 01/08/24 Range/Units 05:35 05:50 WBC (3.8-10.6) k/uL RBC (4.30-5.90) m/uL Hgb (13.0-17.5) gm/dL Hct (39.0-53.0) % RDW (11.5-15.5) % PT (10.0-12.5) sec INR (<1.2) ABG pH 7.25 L (7.35-7.45) ABG pCO2 50 H (35-45) mmHg ABG pO2 76 L (83-108) mmHg Hemoglobin 6.8 L* (13.0-17.5) gm/dL Sodium (137-145) mmol/L Potassium (3.5-5.1) mmol/L Chloride (98-107) mmol/L Carbon Dioxide (22-30) mmol/L BUN (9-20) mg/dL Glucose (74-99) mg/dL POC Glucose (mg/dL) 218 H (70-110) mg/dL Calcium (8.4-10.2) mg/dL Microbiology - Last 24 Hours (Table) 01/07/24 12:15 Gram Stain - Preliminary Pleural Fluid 01/07/24 15:07 Gram Stain - Preliminary Sputum Assessment and Plan Plan: Acute hypoxemic respiratory failure with failure to wean from mechanical ventilation, S/P tracheostomy on December 10, 2023. The patient has bilateral pneumonia with a cavitary infiltrate in the right upper lobe, secondary to Pseudomonas aeruginosa and Citrobacter and the patient is currently on a combination of ceftolozane/tazobactam. CAT scan of the chest done on 12/17/2023 was reviewed and the patient has a cavitating cyst/abscess in the posterior aspect of the right upper lobe in addition to patchy opacities bilaterally right more than left consistent with pneumonia,/gram-negative pneumonia. The patient had a pigtail catheter inserted with drainage of the right lung abscess. Encountered significant amount of coughing, unable to ventilate and the patient based on that was placed on propofol and Nimbex for sedation and paralysis. Positive air leak through the pigtail catheter. Rule out bronchopleural fistula. Bronchoscopy was done yesterday, unable to identify a fistula. The rapeutic airway suctioning was done. Cultures were sent. Hospital-acquired right lung pseudomonal/Klebsiella pneumonia. Patient is currently on IV ceftolozane/tazobactam. Chest x-ray from remains unchanged. Respiratory secretions are copious. The patient is having also frequent coughing episodes. The patient is currently sedated and paralyzed to maintain adequate ventilation and oxygenation. 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 Small bowel perforation with abdominal contamination. The patient is status post expiratory laparotomy and small bowel resection and insertion of another jejunostomy tube. The patient jejunostomy is not functional and remains clogged and this was unclogged yesterday. Nevertheless, the tube itself is still malfunctioning. However, the abdominal wound is dehisced and is infected. RAYA drain output is serosanguineous. A wound VAC was applied to the anterior abdominal wall. Peritonitis secondary to above, recovered Septic shock secondary to above, the patient is currently off pressors Atrial fibrillation with rapid medical response, currently back into normal sinus rhythm . Acute kidney injury, off hemodialysis and renal function has normalized History of acute aspiration during upper endoscopy most likely secondary to gastric outlet obstruction secondary to non-Hodgkin's lymphoma. weight loss most likely secondary non-Hodgkin's lymphoma involving the stomach. Anemia of chronic disease, multifactorial, hemoglobin is stable for now Encephalopathy, multifactorial, stable Profound weakness in all 4 extremities and the patient is unable to move at this point in time. Motor function 0 out of 5 in all 4 extremities. Positive cough. Positive gag. 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 Malfunctioning of the J-tube, currently on TPN for nutritional support Hypertension, currently on Cleviprex Plan Continue ventilator support. Give the patient a paralytic holiday Gave the patient sedation holiday Bronchoscopy was done, unable to find a fistula although the possibility of bronchopleural fistula cannot be completely ruled out as the patient continues to have purulent secretions and frequent coughing episodes. He does have a positive air leak in his pigtail catheter. Cultures from the right lung abscess and sputum was sent Continue IV ceftolozane/tazobactam The J-tube needs to be readdressed. It is nonfunctional and the patient is on TPN for nutritional support IV fluids to KVO Monitor fever pattern General Surgery is on the case regarding abdominal wound Continue hydralazine and the patient is off Cleviprex Condition remains extremely critical with poor prognosis based on the above Will continue to follow this patient along with the rest of the consultants. Condition is critical over the poor outcome based on the above. Evaluation was done more than 30 minutes.
--- NOTE | 2024-01-08 11:40 | P.PCN ---
Date of Procedure: 01/08/24 Preoperative Diagnosis: Right lung abscess, rule out bronchopleural fistula Postoperative Diagnosis: Purulent respiratory secretions, no fistula identified Procedure(s) Performed: Flexible bronchoscopy, airway inspection, therapeutic airway suctioning Anesthesia: JOHANA Surgeon: Oswald Love Pathology: other Condition: critical Disposition: ICU Operative Findings: This procedure was done in the intensive care unit. The patient was placed on propofol for sedation. The flexor bronchoscope was inserted through the tracheostomy tube. Some purulent respiratory secretions identified within the airways especially the distal trachea and right mainstem bronchus. Therapeutic airway suctioning was done. A full airway inspection was done. Right mainstem was within normal limits. Right upper lobe was trifurcated and within normal limits. The bronchus intermedius was within normal limits. The posterior segment of the right lower lobe and the superior segment of the right lower lobe were quite inflamed and there is some purulent material originating in those segments. Rest of the segments of the right lower lobe were patent and within normal limits. Examination of the left side was also within normal limits. Therapeutic airway suctioning was done. The bronchial aspirate will be sent for cultures. No fistula identified although the posterior superior segment of the right lower lobe looks to be quite inflamed and atelectatic and filled with some purulent respiratory secretions.
[2024-01-08 11:49] LABS: Glucose,Whole Blood 174 mg/dL (70-110)
--- NOTE | 2024-01-08 13:04 | P.PN ---
Subjective Progress Note Date: 01/08/24 Patient seen and examined at bedside. No acute events. Has right-sided chest tube in place. J-tube in place with continued drainage around site that does appear to be improving. Objective - Vital Signs Vital signs: Vital Signs Temp 97.5 F L 01/08/24 12:00 Pulse 86 01/08/24 12:00 Resp 20 01/08/24 12:00 BP 99/56 01/08/24 12:00 Pulse Ox 95 01/08/24 12:00 FiO2 30 01/08/24 12:00 Intake & Output 01/07/24 01/08/24 01/08/24 18:59 06:59 18:59 Intake Total 1361 5567.065 6729.931 Output Total 1300 1080 635 Balance 61 222.562 1065.931 Weight 97.3 kg 99 kg 99 kg Intake: IV 1080 1236 1796 0.9 Normal Saline @ KVO 120 20 Ceftolozane/Tazobactam 3 100 gm In Sodium Chloride 0.9 % 100 ml @ 100 mls/hr IV Q8H [facility] Rx#:[id number] Dextrose 5% in Water 1, 525 000 ml @ 75 mls/hr IV . [id number] [facility] with Sodium Bicarb (1 Meq/ml) 150 ml Rx#:[id number] Magnesium 100 Normal Saline Pressure 36 21 Saline Potassium Chloride 10 meq 300 In Water For Injection 1 100ml.bag @ 100 mls/hr IVPB Q1H [facility] Rx#: [id number] Potassium Phosphate 10 100 mmol In Sodium Chloride 0 .9% 250 ml @ 125 mls/hr IV ONCE ONE Rx#:[id number] TPN 1080 1080 630 Intake, IV Titration 281 344.222 252.931 Amount Cisatracurium 200 mg In 181.270 196.449 Sodium Chloride 0.9% 180 ml @ 1 MCG/KG/MIN 5.838 mls/hr IV .Q24H [facility] Rx#: [id number] Clevidipine Butyrate 25 50 45.900 mg In Empty Bag 1 bag @ 1 MG/HR 2 mls/hr IV .Q24H [facility] Rx#:[id number] Fat Emulsion 20% 250 ml 231 In Empty Bag 1 bag @ 21 mls/hr IV TuThSa [facility] Rx#: [id number] propofoL 1,000 mg In 117.052 56.482 Empty Bag 1 bag @ 15 MCG/ KG/MIN 8.757 mls/hr IV . [id number] [facility] Rx#:[id number] Output: Chest Tube Drainage 90 30 Chest Tube Right 90 30 Drainage 100 80 Right Abdomen 100 80 Urine 1300 890 525 Other: Voiding Method Indwelling Catheter Indwelling Catheter Indwelling Catheter ABP, PAP, CO, CI - Last Documented Arterial Blood Pressure 113/48 - Constitutional General appearance: Present: no acute distress - Neck Details: Tracheostomy in place - Gastrointestinal Gastrointestinal Comment(s): J-tube site with bilious drainage around, skin with significant improvement - Musculoskeletal Musculoskeletal: Present: generalized weakness - Labs CBC & Chem 7: 01/08/24 04:48 01/08/24 04:48 Labs: Abnormal Lab Results - Last 24 Hours (Table) 01/07/24 01/07/24 01/08/24 Range/Units 18:36 23:21 04:48 WBC (3.8-10.6) k/uL RBC (4.30-5.90) m/uL Hgb (13.0-17.5) gm/dL Hct (39.0-53.0) % RDW (11.5-15.5) % ABG pH (7.35-7.45) ABG pCO2 (35-45) mmHg ABG pO2 (83-108) mmHg Hemoglobin (13.0-17.5) gm/dL Sodium 135 L (137-145) mmol/L Potassium 3.4 L (3.5-5.1) mmol/L Chloride 112 H (98-107) mmol/L Carbon Dioxide 19 L (22-30) mmol/L BUN 45 H (9-20) mg/dL Glucose 208 H (74-99) mg/dL POC Glucose (mg/dL) 157 H 174 H (70-110) mg/dL Calcium 7.4 L (8.4-10.2) mg/dL 01/08/24 01/08/24 01/08/24 Range/Units 04:48 05:35 05:50 WBC 17.3 H (3.8-10.6) k/uL RBC 2.34 L (4.30-5.90) m/uL Hgb 7.1 L (13.0-17.5) gm/dL Hct 22.0 L (39.0-53.0) % RDW 18.1 H (11.5-15.5) % ABG pH 7.25 L (7.35-7.45) ABG pCO2 50 H (35-45) mmHg ABG pO2 76 L (83-108) mmHg Hemoglobin 6.8 L* (13.0-17.5) gm/dL Sodium (137-145) mmol/L Potassium (3.5-5.1) mmol/L Chloride (98-107) mmol/L Carbon Dioxide (22-30) mmol/L BUN (9-20) mg/dL Glucose (74-99) mg/dL POC Glucose (mg/dL) 218 H (70-110) mg/dL Calcium (8.4-10.2) mg/dL 01/08/24 Range/Units 11:47 WBC (3.8-10.6) k/uL RBC (4.30-5.90) m/uL Hgb (13.0-17.5) gm/dL Hct (39.0-53.0) % RDW (11.5-15.5) % ABG pH (7.35-7.45) ABG pCO2 (35-45) mmHg ABG pO2 (83-108) mmHg Hemoglobin (13.0-17.5) gm/dL Sodium (137-145) mmol/L Potassium (3.5-5.1) mmol/L Chloride (98-107) mmol/L Carbon Dioxide (22-30) mmol/L BUN (9-20) mg/dL Glucose (74-99) mg/dL POC Glucose (mg/dL) 174 H (70-110) mg/dL Calcium (8.4-10.2) mg/dL Microbiology - Last 24 Hours (Table) 01/07/24 15:07 Gram Stain - Preliminary Sputum Sputum Culture - Preliminary Pseudomonas aeruginosa 01/07/24 12:15 Gram Stain - Preliminary Pleural Fluid Assessment and Plan Plan: ASSESSMENT: 1. 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 Status post J-tube placement and revision for small bowel obstruction 2. Abdominal wound dehiscence status post wound VAC placement 3. Status post tracheostomy PLAN: -At this time no plan to exchange J-tube, this was discussed further with the family. Concern is for dilating the fistula tract and having excessive output. Continue to monitor. -Keep J-tube to drainage, this was discussed in depth with patient's at bedside. Concern is for beginning tube feeds and increasing output from around J-tube site. Continue with TPN. -Continue to hold tube feeds -Wound VAC scheduled to be changed Saturday/Saturday/Saturday -Continue TPN for nutrition support -Continue zinc barrier cream around J-tube
--- NOTE | 2024-01-08 16:31 | P.PN ---
Subjective Progress Note Date: 01/08/24 Patient is known to me and last week he was being followed up with Dr. Hernández please refer to his note for further details. Trached on the ventilator. This seems to the patient has right lung abscess. He is on paralytic he is on Nimbex as well as he is on IV propofol. Objective - Vital Signs Vital signs: Vital Signs Temp 97.5 F L 01/08/24 16:00 Pulse 81 01/08/24 16:00 Resp 20 01/08/24 16:00 BP 99/56 01/08/24 16:00 Pulse Ox 95 01/08/24 16:00 FiO2 30 01/08/24 16:00 Intake & Output 01/07/24 01/08/24 01/08/24 18:59 06:59 18:59 Intake Total 1361 1894.753 0835.317 Output Total 1300 1080 855 Balance 61 118.188 6648.317 Weight 97.3 kg 99 kg 99 kg Intake: IV 1080 1236 2022 0.9 Normal Saline @ KVO 120 60 Ceftolozane/Tazobactam 3 100 gm In Sodium Chloride 0.9 % 100 ml @ 100 mls/hr IV Q8H [facility] Rx#:[id number] Dextrose 5% in Water 1, 525 000 ml @ 75 mls/hr IV . [id number] [facility] with Sodium Bicarb (1 Meq/ml) 150 ml Rx#:[id number] Magnesium 100 Normal Saline Pressure 36 27 Saline Potassium Chloride 10 meq 300 In Water For Injection 1 100ml.bag @ 100 mls/hr IVPB Q1H [facility] Rx#: [id number] Potassium Phosphate 10 100 mmol In Sodium Chloride 0 .9% 250 ml @ 125 mls/hr IV ONCE ONE Rx#:[id number] TPN 1080 1080 810 Intake, IV Titration 281 344.222 418.317 Amount Cisatracurium 200 mg In 181.270 196.449 Sodium Chloride 0.9% 180 ml @ 1 MCG/KG/MIN 5.838 mls/hr IV .Q24H [facility] Rx#: [id number] Clevidipine Butyrate 25 50 45.900 mg In Empty Bag 1 bag @ 1 MG/HR 2 mls/hr IV .Q24H [facility] Rx#:[id number] Fat Emulsion 20% 250 ml 231 In Empty Bag 1 bag @ 21 mls/hr IV TuThSa [facility] Rx#: [id number] propofoL 1,000 mg In 117.052 221.868 Empty Bag 1 bag @ 15 MCG/ KG/MIN 8.757 mls/hr IV . [id number] [facility] Rx#:[id number] Output: Chest Tube Drainage 90 30 Chest Tube Right 90 30 Drainage 100 80 Right Abdomen 100 80 Urine 1300 890 745 Other: Voiding Method Indwelling Catheter Indwelling Catheter Indwelling Catheter ABP, PAP, CO, CI - Last Documented Arterial Blood Pressure 115/46 - Exam General: Lying in bed and does not appear in acute distress. Resp: Trach on vent. Neuro: Limited since on paralytic. Is on IV Nimbex and Propofol. - Labs CBC & Chem 7: 01/08/24 04:48 01/08/24 04:48 Labs: Abnormal Lab Results - Last 24 Hours (Table) 01/07/24 01/07/24 01/08/24 Range/Units 18:36 23:21 04:48 WBC (3.8-10.6) k/uL RBC (4.30-5.90) m/uL Hgb (13.0-17.5) gm/dL Hct (39.0-53.0) % RDW (11.5-15.5) % ABG pH (7.35-7.45) ABG pCO2 (35-45) mmHg ABG pO2 (83-108) mmHg Hemoglobin (13.0-17.5) gm/dL Sodium 135 L (137-145) mmol/L Potassium 3.4 L (3.5-5.1) mmol/L Chloride 112 H (98-107) mmol/L Carbon Dioxide 19 L (22-30) mmol/L BUN 45 H (9-20) mg/dL Glucose 208 H (74-99) mg/dL POC Glucose (mg/dL) 157 H 174 H (70-110) mg/dL Calcium 7.4 L (8.4-10.2) mg/dL 01/08/24 01/08/24 01/08/24 Range/Units 04:48 05:35 05:50 WBC 17.3 H (3.8-10.6) k/uL RBC 2.34 L (4.30-5.90) m/uL Hgb 7.1 L (13.0-17.5) gm/dL Hct 22.0 L (39.0-53.0) % RDW 18.1 H (11.5-15.5) % ABG pH 7.25 L (7.35-7.45) ABG pCO2 50 H (35-45) mmHg ABG pO2 76 L (83-108) mmHg Hemoglobin 6.8 L* (13.0-17.5) gm/dL Sodium (137-145) mmol/L Potassium (3.5-5.1) mmol/L Chloride (98-107) mmol/L Carbon Dioxide (22-30) mmol/L BUN (9-20) mg/dL Glucose (74-99) mg/dL POC Glucose (mg/dL) 218 H (70-110) mg/dL Calcium (8.4-10.2) mg/dL 01/08/24 Range/Units 11:47 WBC (3.8-10.6) k/uL RBC (4.30-5.90) m/uL Hgb (13.0-17.5) gm/dL Hct (39.0-53.0) % RDW (11.5-15.5) % ABG pH (7.35-7.45) ABG pCO2 (35-45) mmHg ABG pO2 (83-108) mmHg Hemoglobin (13.0-17.5) gm/dL Sodium (137-145) mmol/L Potassium (3.5-5.1) mmol/L Chloride (98-107) mmol/L Carbon Dioxide (22-30) mmol/L BUN (9-20) mg/dL Glucose (74-99) mg/dL POC Glucose (mg/dL) 174 H (70-110) mg/dL Calcium (8.4-10.2) mg/dL Microbiology - Last 24 Hours (Table) 01/07/24 15:07 Gram Stain - Preliminary Sputum Sputum Culture - Preliminary Pseudomonas aeruginosa 01/07/24 12:15 Gram Stain - Preliminary Pleural Fluid Assessment and Plan Assessment: * Altered mental status, likely due to toxic metabolic encephalopathy---today limited since on paralytic (Nimbex) * Generalized weakness, 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--is mildly improving * Aspiration pneumonitis from retained gastric contents * Ventilator dependent respiratory failure, status post tracheostomy 12/10/2023 * Right lung abscess * Status post pulmonary edema * History of small bowel perforation at the site of jejunostomy tube tip with balloon * Peritonitis, secondary to above * Acute kidney injury, with hemodialysis started 12/05/2023 * Acute recurrent atrial fibrillation, currently in sinus mechanism * Septic shock, recovered * Bacteremia with coagulase-negative staph * Hypertension * Anemia * Thrombocytopenia, resolved * History of gastric B-cell lymphoma, with gastric outlet obstruction. Plan: * Stat EEG was performed on 12/08/2023: It revealed generalized slowing of severe degree. This is suggestive of generalized cerebral dysfunction as can be seen with toxic metabolic encephalopathy or related to diffuse structural brain about a day. Clinical correlation is recommended. Sporadic, periodic generalized sharp-appearing waves were seen. This may suggest underlying cortical irritability. No electrographic seizure was recorded. * Therefore, Dr. Hernández empirically started on Keppra 500 mg daily. I lowered to 250mg bid on 12/25/23 since mentation is improving. . * Repeat EEG on 12/12/2023: Is abnormal. The study is limited because of di ffuse myogenic artifact. The background slowing is suggestive of severe encephalopathy. Otherwise no focal slowing, epileptiform discharges or seizure on the EEG. * CT head performed 12/07/2023 revealed no acute intracranial process. Some atrophy. I personally reviewed CT head agree with the findings. * PT and OT are consulted and patient will benefit from rehab and if possible inpatient. * Recommend outpatient EMG with NCS of uppers and lowers if still has weakness after therapy. * ID following. * For medical management as per critical care and other specialties on board. The plan is discussed with patient's children who are at bedside. Will follow-up sporadically. Time with Patient: Less than 30
[2024-01-08 17:35] LABS: Glucose,Whole Blood 154 mg/dL (70-110)
--- NOTE | 2024-01-08 22:40 | P.PN ---
Progress Note - Text Progress Note Date: 01/08/24 Chief Complaint: On the ventilator This is a 73-year-old patient, follows with Dr. Patricia Deal. Patient was seen this morning in the ICU. Patient's and daughter at the bedside. History obtained predominantly by the . Patient been having trouble with his stomach symptoms for close to 8 months. Patient underwent EGD by Dr. Sahara Cheng yesterday. Patient was found to have ulcerated around the antrum and obstruction to the pylorus. A lot of retained food was found. Patient aspirated. Had to be intubated and brought to the ICU. On a Levophed drip. FiO2 50 and a PEEP of 6. Patient had been losing weight lost about 25 pounds. Previously has a history of mitral valve prolapse. November 13: ICU. Patient remains on Precedex drip and propofol drip. Did not do well attempted extubation yesterday. Patient been off Levophed. NG tube to suction. Spoke to patient's and son at the bedside. Biopsy results awaited. Hemoglobin dropped to 6.9 this morning. Get a unit of blood. November 14: ICU. Up in a chair. Extubated yesterday. NG tube to suction. at the bedside. 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 Oncology was consulted. They have ordered a port. Results discussed with Dr. Sahara Cheng. General surgery was consulted for J-tube placement. Discussed with at the bedside. Patient getting IV fluids, IV Zosyn,. Patient has been on IV amiodarone for A-fib-back in sinus rhythm. Multiple PACs. Did receive unit of blood yesterday. Also IV ferric gluconate. November 15: ICU. Patient earlier today underwent jejunostomy tube placement and a port placement. Patient awake. Answering questions. NG tube to suction present. Updated patient's . Patient remains on IV amiodarone and IV Zosyn. November 16: ICU. Up in the chair. NG tube present but not to suction. Trickle feeding through the jejunostomy tube should be started today. Dietitian has been on board. IV Zosyn to continue. Patient's and his sister at the bedside. Discussed. Also spoke with Dr. Serna. Given patient has no other predisposing cardiac factors for the A-fib except acute illness. His LV function is normal. Left atrium is normal. He has already been loaded with IV amiodarone. Will switch him to oral Lopressor 12.5 twice daily. Hence will DC amiodarone. Patient yesterday had wheezing was put on bronchodilators steroids per pulmonary. November 17: Propped up in bed. NG tube was discontinued. Sinus rhythm. Remains NPO. Getting G-tube feeding at 40 cc an hour. Dietitian following. Get arrangements done for DC home tomorrow including tube feeding. Increase activity discussed with patient and elder daughter at the bedside. Still requiring oxygen. Incentive spirometry. November 18: Patient up in recliner. Earlier today spoke to case management social worker David. Informed patient is rather weak and will be going to the [facility]. Looking at authorization. Denae came to the room and spoke to patient his and his daughter. They are very keen to take the patient home as 3 daughters all nurses and they will take care of him at home. Patient earlier today to abdominal cramping and some loose stools.'s tube feeding was held. Told the nurse to start back at the rate of 40 cc an hour. He was before the getting it at 55 cc an hour. Incentive spirometry was again emphasized. Patient remains on 4 L of oxygen. November 19: I saw the patient this morning. Hence I am in the evening. Morning was sitting with his sons. Has some edema. Lungs had crackles I gave him 40 mg of Lasix. He did make good urine. Tube feeding was held from the p revious evening of because of abdominal cramping. Acute abdominal series showed nonspecific bowel gas pattern and SBO to be ruled out. Family and patient was updated. Told him discharge will depend on day by day. Later this afternoon CT scanAnd abdomen pelvis done. Showed small bowel to be 3 point centimeter dilated. Some anasarca. Gastric findings. Gallstones. Later spoke to Dr. Irby from general surgery. They will further review and decide about further plan of action. Will give further dose of IV Lasix because of fluid overload from likely hypoalbuminemia and IV fluids previously received. Patient may take his pills by mouth. Total time spent today about 1 hour with over 40 minutes of discussion. Patient did state his breathing is better after Lasix this morning. November 20: Saw the patient this morning. was present. Patient received 2 more doses of Lasix. Diuresed well. Breathing much better. Lungs are sounding better. Discussed with Dr. Zepeda other surgeon. He is taking 3 cc out of the balloon and the gastrostomy tube. Started trickle feeding at 5 cc an hour. Will see how this does. Later in the day ran into the and the daughter again. Did update them on the same. Dilaudid was discontinued yesterday but morphine was ordered by surgery for patient having pain. Concerns about GI issues with that we will DC the morphine. As family does not want the same. November 21: Patient reclining bed. Tired. Several family members at the bedside. Including his and eldest daughter. Patient started on trickle feed yesterday at 5 cc an hour. This morning he has been on 10 cc an hour. Still having some loose stools. C. difficile was ordered. Patient on 2 L of nasal cannula. Has diuresed well. Will give an additional dose of Lasix today. If C. difficile is negative and the diarrhea is from the tube feedings we may have to use a fecal management system to keep him comfortable. Otherwise patient remains NPO. Dietitian is following the patient. Care was discussed length with patient the and daughter at the bedside. Questions answered. Liquid Tylenol has been added for abdominal pain. Avoid narcotics. Elevated white count likely from Solu-Medrol 11/23/2023--patient was feeling better today. Multiple family member at bedside. No issues overnight. Normal saline at 10 cc an hour, tube feeding at 20 cc an hour, remains on Zosyn, on 3 L oxygen. Afebrile. Heart rate 62, respiratory rate 16, blood pressure 114/67, saturating 91% on 3 L. WBCs 14.5, 9.7 hemoglobin. Platelet 242. BMP is unremarkable. Pulmonary and general surgery following. General surgery recommended to continue tube feeds at 20 cc/h. 11/24/2023--patient reported significant abdominal discomfort, also noted to have leak around G-tube. General surgery is following, evaluated the patient at bedside, adjusted tube feeds. Also reported having diarrhea, on 2 L oxygen, went up to 5 L. Blood pressure was low, 500 mL fluid bolus with close monitoring of respiratory status ordered. Currently on DuoNebs, Solu-Medrol, will continue Zosyn. Chest x-ray showed a left lower lobe infiltrate. Abdominal x-ray showed multiple air-fluid levels. CT abdomen showed multiple dilated small bowel loops, consistent with obstruction, pneumoperitoneum, cholelithiasis and ascites. WBCs 14.1, platelet 255, hemoglobin 8.9. NG tube in place. Family at bedside. patient transferred to SICU for close monitoring. 11/25/23--patient is currently in the ICU, required Levophed overnight due to low blood pressure, low urine output with creatinine trending up. Nephrology following. Metal Pickling Equipment Operator also following. Patient remains n.p.o., NG tube in place, following NG tube insertion patient had total of 2 L output, J-tube was draining approximately 200 cc over last 8 hours, continues to have abdominal pain and abdominal tenderness. Patient on IV fluids. Currently on 4 L oxygen. WBCs 8.2, hemoglobin 12.3, platelet 188. Chest x-ray earlier today showed right sided port and a stable left lung airspace disease, NG tube in place. Patient currently on Zosyn, on IV Dilaudid for pain control, on IV Solu-Medrol. General surgery planning for OR today, started on TPN. 11/26/23--patient was seen and examined today. Patient is currently sedated, intubated on mechanical ventilation. Family at bedside. Patient underwent ex lap, abdominal washout, small bowel resection with new feeding jejunostomy tube placement yesterday, small bowel was noted to be perforated with significant contamination of abdominal cavity. Patient is currently on vancomycin and Zosyn. Creatinine went up to 2.85, nephrology following, recommended to continue IV fluids, avoid nephrotoxin Preserved EF on echocardiogram.. Patient currently on Levophed, vasopressin in the ICU for close monitoring. Patient is afebrile, heart rate 122, blood pressure 129/76, currently on mechanical ventilation, sedated. November 26: ICU. Intubated. FiO2 60 and a PEEP of 5. Drips include IV amiodarone. Heart rate was up early did get fired microgram of IV digoxin and 2.5 mg of IV Lopressor. Did drop her blood pressure bit. Urine output was low. Received 80 mg of IV Lasix. Ahmet to 150 cc. Other drips include IV propofol, vasopressin, Levophed. TPN was started yesterday. Antibiotics include IV Zosyn and vancomycin. Patient has a J-tube to drainage to gravity. Spoke to patient's younger daughter and at the bedside. Prognosis guarded. Continue current treatment plan. Chest x-ray shows right lower lobe consolidation. Small pleural effusion. November 27: ICU. Intubated. FiO2 55 and a PEEP of 5. Antibiotics include IV vancomycin. Drips include Levophed at a small dose, IV vasopressin, propofol, amiodarone. Patient converted to sinus rhythm this morning. Getting TPN and normal saline at 75 cc an hour. Urine output about 25 cc an hour. RAYA drain put out about 260 cc last 12 hours that is last slot shift supervisor. NG tube with bilious output. And also GI J-tube output to gravity. Spoke to patient's and daughter at the bedside. They understand patient still not out of the kee. Platelets have dropped-therefore probably Zosyn stopped. November 28: ICU. Intubated. FiO2 55 and a PEEP of 5. Patient is in sinus rhythm. Seen this morning. Due for dialysis catheter this afternoon. Urine output about 15 to 20 cc an hour. Patient is on IV Lasix 80 mg every 12. Saline is KVO. Drips include IV propofol vasopressin. Patient having significant output through the RAYA drain and the jejunostomy tube to drainage. Creatinine had been getting worse. Patient's at the bedside. Understands patient's remains critically ill. Hemoglobin is down to 7. Given that patient's pain hypotensive, and on vasopressin we will give a unit of blood with dialysis. Getting TPN antibiotic changed to IV meropenem November 29: ICU. Intubated. FiO2 55 and a PEEP of 5. Remains in sinus rhythm. Getting TPN. Dialyzed yesterday and this morning. About 1000 cc removed. Urine output about 50 cc an hour. Patient is on IV propofol. Off vasopressin. Still having significant output through the RAYA drain and jejunostomy tube. Patient received a second unit of blood yesterday. Patient's and daughter at the bedside. I did discuss guarded prognosis. Did asked them to revisit CODE STATUS.. Getting IV meropenem. November 30: ICU. Intubated. Did get a sedation holiday t today. Back on propofol. Getting TPN. Still getting IV Lasix. Fair urine output. Jejunostomy tube in last 8 hours was about 30 cc output. RAYA drain in the 8 hours had about 180 cc output. Telemetry shows sinus rhythm. NG tube has low intermittent suction with negative output. On the vent with FiO2 40 and a PEEP of 5. No hemodialysis today. Discussed with the and eldest daughter at the bedside. IV meropenem-patient's sputum had grown Citrobacter freundii and Pseudomonas aeruginosa. December 01: ICU. Intubated. Jejunostomy tube to gravity. Only 10 cc output in last 24 hours. RAYA drain. About 190 cc last 6 hours. Nasogastric tube to low intermittent suction. Minimal output. Patient is on a small dose of propofol 5 mics. Telemetry shows sinus rhythm. Patient started on small dose of Cleviprex this morning. Blood pressure. Getting TPN. FiO2 35 and PEEP of 5. Discussed with the at the bedside. Hemodialysis today December 02: ICU. Patient remains intubated. FiO2 35 PEEP of 5. Patient is on IV propofol. IV Cleviprex was discontinued yesterday. Also remains on TPN. Telemetry shows sinus rhythm. NG tube is good no output. Still significant output through the RAYA drain. Jejunostomy tube has minimal output. Patient had hemodialysis today 2 L of fluid was removed. Oral half liters yesterday. Patient getting a sedation holiday. General Surgery started the patient on trickle feeding at 10 cc an hour. I did speak to patient's at the bedside. Prognosis remains guarded but there is some improvement. December 03: ICU. Intubated. FiO2 35 PEEP of 5. Drips include IV propofol and Precedex. Getting TPN. Telemetry shows sinus rhythm. Remains on IV Lasix 80 mg twice a day. IV meropenem. Because patient gets easily agitated when transitioning off propofol he has been switched over to Precedex. For hemodialysis today. December 04: ICU. Intubated. FiO2 35 and a PEEP of 5. Patient been taken off propofol is on Precedex. Telemetry sinus rhythm. J-tube with minimal output. RAYA drain with decreased output. NG tube to suction minimal output. Family wanted to hold off trickle feeding until cleared by oncology. Which he did today. Trickle feeding will be started today. Spoke to patient's and one of the daughters at the bedside. Dr. Russ is spoken to the earlier this point they want to do further tracheostomy tube. October 4: ICU. Intubated. FiO2 35 PEEP of 5. Patient remains on Precedex and PPN. Patient's dialysis catheter was not functioning is getting another [address] Bobby this afternoon. Remains on IV meropenem. Has a RAYA drain in the jejunostomy tube to gravity. NG tube to low intermittent suction. No family at the bedside. December 06: ICU. Intubated. FiO2 35 PEEP of 5. RAYA drain putting out about approximately 120 cc per shift. Patient on IV Precedex. FiO2 35 PEEP of 5. Telemetry-sinus rhythm. Patient occasionally been put on small dose of Levophed specially for hemodialysis getting it today. Also started on midodrine for low blood pressure. Tolerating tube feeding at 10 cc an hour. Also had a bowel movement. Mentation has not improved. Even with sedation holiday. Neurology consulted. CT brain shows no acute process. December 07: ICU. Intubated. FiO2 35 PEEP of 5. Telemetry-sinus rhythm. NG tube to suction low intermittent minimal output. Getting TPN. Tube feeding at 20 cc an hour. RAYA drain averaging over 100 cc per shift. Remains on Precedex. EEG was done today. Discussed with at the bedside. Family is currently not inclined for tracheostomy tube today. Day 13 of being intubated December 08: ICU. Intubated. FiO2 35 PEEP of 5. Patient is put on back on propofol per broadcast maintenance technician Dr. JIMENEZ. EEG did show some potential for spikes was put on Keppra by neurology. Telemetry shows sinus rhythm. NG tube to suction with no output. Tube feeding was put on hold because of questionable discharge on the site. Being restarted today. RAYA drain is 150 cc last 12-hour shift. Patient does open eyes. Family has decided to proceed with tracheostomy and surgery has been consulted for the same. Spoke to the at the bedside. For hemodialysis today. December 09: ICU. Intubated FiO2 35 PEEP of 5. Patient seen this morning. Pending tracheostomy placement this afternoon. Remains NPO. G-tube feeding was held overnight. RAYA drain putting out about 100 cc per shift. Received a unit of blood for hemoglobin of 6.6. On 25 mics of propofol. Getting TPN and meropenem. Spoke to the at the bedside. Patient became hypotensive with dialysis yesterday. Levophed had to be given. Only 800 cc were removed yesterday. No hemodialysis today. December 10: ICU . FiO2 35, PEEP 5. Tracheostomy was done yesterday by Dr. Ewing. G-tube feeding was started today at 10 cc an hour. Dietitian following. RAYA drain 12-hour shift overnight put out about 30 cc. Patient hemodialysis today about 1 L removed. Patient has a sacral stage II decub with a dressing. On propofol 20 mics. Spoke to at the bedside. TPN. Meropenem was discontinued yesterday. December 11: ICU. FiO2 35 PEEP of 5. Tracheostomy. NG tube was discontinued. No hemodialysis today. Telemetry shows sinus rhythm. J-tube feeding at 40 cc an hour. TPN was discontinued. Patient has been off propofol also. PICC line in place. Patient had a EEG done today. Spoke to patient's elder daughter at the bedside. May open eyes occasionally. Not really following commands December 12: 73-year-old white male with history of chronic abdominal pain for the last 8 months has been treated with Protonix 40 mg daily for the last 3 months with no improvement. Patient had a 22 pound weight loss in the last [address] of the abdomen and pelvis 3 weeks ago showed thickening of the antral wall with pathological adenopathy posterior to the stomach suspicious of neoplasm. Today the patient underwent elective upper endoscopy to evaluate further, patient received IV sedation by anesthesia endoscope was inserted into the mouth, esophagus was intubated without any difficulty there was evidence of large amount of liquid and solid food noted in the stomach suggestive of gastric outlet obstruction. Scope could not be advanced through the pylorus, however in the prepyloric area there was a large superficial ulceration identified with multiple biopsies were done from this area. The body cardia and fundus could not adequately visualize because of large amount of retained food in the s tomach. Scope was withdrawn back to the stomach and upon careful examination the mucosa of the antrum body and cardia as well as the fundus appeared normal. Procedure was being performed and biopsies were done patient threw up and subsequently became hypoxic there was clearly evidence of witnessed aspiration anesthesia intubated the patient, procedure was terminated, and the patient was transferred to the ICU, this consult was initiated. Patient is now on assist- control rate of 20 tidal volume 500 FiO2 70% PEEP of 10 ABG is pending, earlier ABG showed profound hypoxia patient is on propofol at 50 mcg/kg/min, next ABG is pending. Chest x-ray showed chronic changes without evidence of acute pulmonary disease. 12/14/2023 Patient remains in the ICU, generally weak Patient s/p tracheostomy G-tube in place Patient still has fever and mild tachycardia but tachycardia is improving, leukocytosis improving as well. Hemoglobin 8.1. Creatinine 3.0 and nephrology team on the case. He has mild transaminitis. He was getting Zosyn which is held now, nowCalcitonin is pending 12/14 Patient shon in the ICU, he is still encephalopathic and does not follow command. Neurology service following closely. He is status post tracheostomy. Also J-tube His abdomen looks soft and on exam he has mild coarse secretions. Has a Abarca catheter with clear urine His pro- Calcitonin is still high but trending down 3.0 down to 1.9 No fever this morning WBC slightly less at 16.3 Patient currently off antibiotic He is getting steroids IV Solu-Medrol which might contribute to his leukocytosis. Also he is on IV Keppra by neurologist 12/14 Patient remains confused in the ICU calm, he had a good night per family member and staff. Tracheostomy in place Patient has occasional coughing spells, patient also developed some partial wound dehiscence in his abdomen, surgery team are aware and are going to evaluate the patient Patient also has positive blood culture from 12/13: Gram-positive cocci in clusters. Patient received one-time dose of IV vancomycin. Patient also had fever 2 days ago, leukocytosis and total elevated pro- Calcitonin. Therefore we are going to consult infectious disease team. As his antibiotic Zosyn was stopped few days ago. Currently patient KVO He has good urine output December 16: ICU. Trach. Congested. Requiring suctioning. No hemodialysis today. Getting G-tube feeding at 50 cc an hour. FiO2 30 and a PEEP of 5. On IV Precedex. Eyes open. Does follow commands. Weakness in the limbs. Spoke to at the bedside. Sputum positive for Klebsiella oxytoca and Pseudomonas aeruginosa. December 17: ICU. On trach. Currently cough with increased secretions requiring suctioning. Adding scopolamine patch. Very much clear secretion. CT scan is showing right upper lobe lung abscess. G-tube feeding at 50 cc an hour. Hemodialysis today. RAYA drain putting out about 140 cc a shift. Serous. Has been midline incision wound dehiscence. Wound VAC was placed on it. Stage II ulcer. Patient is on Precedex drip 0.15 mics. Urine output is good about 6200 cc an hour. Spoke to the at the bedside. Patient currently not stable for transfer to LTAC. No limb movements. PT OT on the case. otherwise awake does follow simple commands by face December 18: ICU. Patient seen this afternoon. Because of pain getting IV Dilaudid. No nasal cannula on room air. Does move about his head. Telemetry shows sinus rhythm. FiO2 30 and a PEEP of 5. Patient started on scopolamine patch yesterday has decreased secretions today. Good urine output. Tube feeding at 60 cc an hour. Wound VAC on incisional would be high since in place. RAYA drain continues to make output. No hemodialysis today December 19: ICU. Patient was seen earlier today. FiO2 30 and a PEEP of 5. Sinus rhythm. Awake. Does follow with eyes. Tube feeding got obstructed tube feedings held for now. Increasing oozing from the incision drainage site. at the bedside. Wound VAC remains in place. Good urine output. Dialysis held today. December 20: ICU. Per nephrology no dialysis today. 1 L fluid bolus given. J- tube was replaced over the wire by Dr. Ewing from surgery. On Precedex 0.6 mcg. FiO2 30 and a PEEP of 5 on the vent. RAYA drain putting out of around 100 cc per shift. at the bedside. Drainage through the abdominal incision wound. CT scan abdomen showed tube placement in the small bowel. Stable large right lower quadrant mass with a fluid level. December 21: ICU. No dialysis today. Patient started on trickle feeding through the J-tube yesterday. He started leaking around the J-tube site. Tube feeding was held. Dressings were placed. Wound VAC remains on the incision. Still having output through the RAYA drain. Patient remains on Precedex 0.4 mcg. FiO2 30 and a PEEP of 5. Sinus rhythm. at the bedside. December 22: ICU. Patient was seen this morning today by me. No dialysis today. Patient's and daughter at the bedside. FiO2 30 and a PEEP of 5. Sinus rhythm. Still having significant secretions through the tracheostomy tube. On Precedex 0.4 mcg. Getting D5W IV fluids. Tube feeding remains to be on hold since yesterday. Still output of RAYA drain. Awaiting input from surgery. Discussed with the and daughter. December 23: ICU. Saw the patient this afternoon. Because of good output of urine dialysis has been discontinued. Telemetry shows sinus rhythm. FiO2 30 and a PEEP of 5. RAYA output has been around 8200 cc an hour. Good urine output. Patient does have very slight movement of the limbs. Wound VAC is putting out about 20 cc per shift. Yesterday when trickle feeding was started patient's J- tube drainage also started leaking around the insertion site. Tube feeding was held. Patient remains on IV Zosyn and Precedex at 0.3 mcg. I had a very lengthy discussion with patient's daughter and at the bedside overall guarded prognosis. Later surgery spoke to the family, and then the nurse called me that family was wanting transferred to [facility]. I spoke to Dr. Irby. They felt they could not offer anything more at this point. I did call the [facility] transfer teamcenter consultant. Gave them the reason for transfer. Later in the ICU nurse informed me through [employer] that [facility] had declined the transfer. Total time spent today about 50 minutes with over 30 minutes of discussion. December 24: ICU. Patient is doing not too well. Sinus rhythm. Drips include norepinephrine and IV propofol. Surgery did put 2 stitches around the J-tube insertion site. Started on TPN today. FiO2 30 PEEP of 5. Patient became hypothermic put on a Manjit hugger. Also hypoglycemic. Decreased urine output. IV fluids increased. Patient's son was at the bedside. I did speak to patient's eldest daughter outside in the waiting room. Did tell the patient doing very poorly. I did try to call the on the phone number she has gone home. Started an IV antifungal today. December 26, 2023 73-year-old white male with history of chronic abdominal pain for the last 8 months has been treated with Protonix 40 mg daily for the last 3 months with no improvement. Patient had a 22 pound weight loss in the last [address] of the abdomen and pelvis 3 weeks ago showed thickening of the antral wall with pathological adenopathy posterior to the stomach suspicious of neoplasm. Today the patient underwent elective upper endoscopy to evaluate further, patient received IV sedation by anesthesia endoscope was inserted into the mouth, esophagus was intubated without any difficulty there was evidence of large amount of liquid and solid food noted in the stomach suggestive of gastric outlet obstruction. Scope could not be advanced through the pylorus, however in the prepyloric area there was a large superficial ulceration identified with multiple biopsies were done from this area. The body cardia and fundus could not adequately visualize because of large amount of retained food in the stomach. Scope was withdrawn back to the stomach and upon careful examination the mucosa of the antrum body and cardia as well as the fundus appeared normal. Procedure was being performed and biopsies were done patient threw up and subsequently became hypoxic there was clearly evidence of witnessed aspiration anesthesia intubated the patient, procedure was terminated, and the patient was transferred to the ICU, this consult was initiated. Patient is now on assist- control rate of 20 tidal volume 500 FiO2 70% PEEP of 10 ABG is pending, earlier ABG showed profound hypoxia patient is on propofol at 50 mcg/kg/min, next ABG is pending. Chest x-ray showed chronic changes without evidence of acute pulmonary disease. 12/27/2023 Patient is seen and evaluated with family at bedside; remains in the ICU intubated and mechanically ventilated. - ABG showed a pO2 of 99 pCO2 31 pH of 7.44. -- Remains on Eraxis daptomycin and Zosyn patient is intermittently requiring Dilaudid, Ativan does not seem to help his agitation and restlessness. -- Continues to have leakage around the jejunostomy tube, and patient is undergoing the J-tube exchange today. Family is at bedside, seems to be quite anxious about his overall condition, and I explained to the that we are doing the best we can considering his critical illness situation and critical illness polyneuropathy. Patient is profoundly weak, and weaning the patient from mechanical ventilation is almost impossible. At least not at this point yet WBC count is 10.9 hemoglobin is 8.1 basic metabolic profile is normal BUN is 46 creatinine 1.90 patient has been off hemodialysis since the . Chest x- ray continues to show stable findings with right upper lobe opacity and right lower lobe opacity and possibly a small right-sided pleural effusion ----Continue ventilatory support, now on IMV mode rate of 16 with pressure support of 14 Continue Precedex and use Dilaudid 0.5 mg every 2-3 hours as needed. Nutritional support patient is now on TPN, Possible J-tube changed today for J- tube malfunction Continue antibiotics including daptomycin and Zosyn, Eraxis was added by infectious disease 12/28/2023 the patient is seen and evaluated in room at bedside; continues to be afebrile, the patient is on the ventilator through the trach FiO2 is currently stable at 30% no significant pleural effusion clinically patient on requiring any pressor support still having drainage around his jejunostomy tube patient dialysis catheter has been discontinued. Patient white count normalized to 7.6, creatinine is 1.51 patient with pneumonia with a sputum showing Citrobacter and Pseudomonas aeruginosa, the patient sputum repeat is still growing Citrobacter and Pseudomonas sensitive to the Pseudomonas is pending continue with Zosyn -patient did have a positive blood culture with staph epi that was oxacillin resistant as the patient did have a PICC line and the dialysis catheter he is on daptomycin repeat blood culture currently growing oxacillin sensitive staph epi, the patient dialysis catheter has been discontinued Has been sent for the culture -patient also have significant excoriation around his jejunostomy tube site which is still leaking Eraxis was added which will be continued as the patient fever pattern has improved and the patient white count has normalized once again discussed with the nursing staff to apply Triad cream which was discussed yesterday but not applied and monitor clinical course closely 12/29/2023 Patient is seen and evaluated with family members at bedside; remains intubated and mechanically ventilated -- ABG showed a pO2 of 105 pCO2 31 pH of 7.45. Remains on Precedex; multiple antibiotics and antifungal including Eraxis daptomycin and Zosyn. -- chest x-ray is showing improvement in his right upper lobe airspace disease/pulmonary abscess. Right lower lobe seems about the same with chronic opacity and possibly some small right-sided pleural effusion. --Family is at bedside, patient is arousable but does not follow any instructions. Gets extremely restless and agitated easily hence patient is receiving Dilaudid which seems to be working much better for this patient than benzodiazepines --possibly transfer the patient to a select care specialty. 12/30/2023 Evaluated in follow-up in the intensive care unit. He remains on the mechanical ventilator. Status post tracheostomy. There has been a decrease in the amount of leakage around the J-tube site he continues on a gravity flow. TPN is infusing tube feedings remain on hold at this time. No bowel movement reported for the last 5 days. X-ray today reveals extensive pleural parenchymal opacities throughout the right with at least a moderate pleural effusion. Mild patchy densities left mid and lower lung are also similar. Blood work reveals a white blood cell count 11.5, hemoglobin 8.1, platelet count of 78, sodium 142, potassium 4.2, BUN of 42, creatinine of 1.22, Phos of 2.3, magnesium 1.9. Patient continues on IV anidulafungin IV Zerbaxa IV daptomycin. Patient is currently sedated with propofol and also Precedex which is currently on hold at this time. December 31, 2023: ICU. Patient continues to do poorly. On propofol 35 mics. Also getting IV Dilaudid and IV Ativan.. Telemetry shows sinus rhythm. J-tube feeding has been discontinued. Significant output through the Abarca bag and around the G-tube site. Patient also putting out through the RAYA drain on the right side. Getting TPN and lipids. Patient is antimicrobial include iv aniedulefungin, IV ceftolozane/tazobactam, IV daptomycin Advance care planning [October 31, 2023] I met with patient's at the bedside. Went through in detail with patient is overall very poor clinical status. Chances of any meaningful recovery next to minimal. I also did mention that patient in my opinion was not stable to go to chronic ventilator setting. I suggested comfort care/hospice. I did not feel and why all honesty that patient is benefiting any further from the treatment we are giving him in fact causing probably more suffering. I also spoke to patient's daughter outside in the waiting room. Total time spent about 50 minutes with over 30 minutes of discussion. Later I called Dr. Luther JIMENEZ the broadcast maintenance technician after he received a text that family was expressing that some physician expressed he was doing better and giving hope. I spoke to nurse Lemos in the evening and she and Dr. JIMENEZ did go and talk to patient's family at the bedside later. January 01, 2024: ICU. FiO2 30 and a PEEP of 5. Continues to have increased drainage at the G-tube site. Wound VAC in place over the incision. RAYA drain continues to put out excretions. Good urine output. Drips include IV propofol at 20 mics, also getting IV Ativan and Dilaudid. Patient also keeping getting TPN lipids. Spoke to the patient's at the bedside. No further questions. I did speak to Dr. Irby from general surgery. Hence it is both our impression again that changing the tube will not make any difference to the bigger picture. And probably futile. Dr. Irby will be speaking to the family today. David from case management social worker did ask about of family meeting. I did reiterate that I spoken at length to the a few times and also the daughter. Dr. Jimenez also spoke to the and Dr. Irby will be speaking with the today. Prognosis remains to be very poor. I did tell the in my opinion probably the patient is not r a candidate for long-term facility. Will broadcast maintenance technician Dr. Jimenez determine if the patient is a candidate for long-term chronic ventilator facility. January 02, 2024: ICU. FiO2 30 PEEP of 5. Telemetry sinus rhythm. Drips include propofol at 20 mics. Patient getting TPN lipids. Receiving 1 unit of packed red blood cell. Patient was having a breakdown around the tracheostomy stoma site. With a cuff leak. G-tube site is continues to have increasing output. Wound VAC in place. RAYA drains also having increasing output. Patient sister and daughter from [place] from out of town. Earlier they spoke at length with Dr. alford from general surgery. Prognosis remains poor. January 03, 2024: ICU. FiO2 30 PEEP of 5. On propofol. 50 mics. Getting TPN lipids. Sinus rhythm. Wound VAC in place. Drainage around the j-tube site. RAYA drain continues to drain. Patient somewhat sedated. at the bedside. Later case management social worker David inform me that the surgical team Dr. Irby has suggested possible you have [facility], to which family is trying to obtain transferred to. Per Dr. Jimenez note patient has been decline by long-term care twice. Prognosis remains poor. at the bedside. Had no questions. Brother Nathan is present. January 04, 2024: ICU. FiO2 30 PEEP of 5. Propofol was held this morning. Getting TPN lipids. Sinus rhythm. Wound VAC remains in place. Continues to have drainage around the J-tube. RAYA drain continues to have output. at the bedside. She had no questions. Antibiotics in place. January 05, 2024: ICU. FiO2 30 PEEP of 5. Audibly sounding congested. Getting TPN lipids. Sinus rhythm. Wound VAC in place. Drainage around J-tube site. RAYA output continues. No family at bedside. Getting antibiotics. Lethargic January 06, 2024: ICU. FiO2 30 PEEP of 5. Patient is been off propofol since yesterday. Does move his head about. Try to open his eyes sometimes. Sinus rhythm. Blood pressure is running high yesterday. Started on Cleviprex. Hydralazine is being added. Continue to get TPN lipids. J-tube site remains excoriated. Wound VAC in place. RAYA output about 40 to 50 cc is a 12-hour shift. Patient elder daughter at the bedside. Eraxis was discontinued on January 02. Daptomycin is being discontinued by ID. Continue ceftolo'szone. CT abdomen pelvis done today: 3.1 cm organized fluid collection within the rectovesicular space concerning for abscess. No change in right upper lung 4.9 cm fluid collection with a fluid level. For possible pulmonary abscess. Moderate size right lung base multiloculated hydropneumothorax possibly abscess. Additional areas of air bronchograms. January 07, 2024: ICU. FiO2 30 PEEP of 5. Patient was taken down for pigtail drainage of the right lung abscess. About 200 cc of pus was obtained. Nurse informed me when they told him about for the procedure a lot of pus gushed out from the tracheostomy site. Dr. Love at the bedside did a bronchoscopy. Some pus was aspirated. No obvious fistula was noted. Patient is being back on Cleviprex drip. TPN lipids. January 08, 2024: ICU. Patient was having severe bouts of coughing. Unable to maintain ventilation. Patient was put on Nimbex drip and propofol drip. TPN lipids continue. Has a right chest wall pigtail catheter 90 cc output in 12- hour shift. Drainage from around the J-tube site. RAYA drain continues Ahmet to have an output. Abdominal wound is high since with the wound VAC in place. Patient sedated. Active Medications Acetaminophen (Acetaminophen Suppository 650 Mg Supp) 650 mg RECTAL Q6HR PRN PRN Reason: Fever Albuterol/Ipratropium (Ipratropium-Albuterol 3 Ml Neb) 3 ml INHALATION RT-QID [facility] Last Admin: 01/08/24 19:26 Dose: 3 ml Albuterol/Ipratropium (Ipratropium-Albuterol 3 Ml Neb) 3 ml INHALATION RT-Q2H PRN PRN Reason: Shortness Of Breath Or Wheezing Last Admin: 01/08/24 04:01 Dose: 3 ml Artificial Tears (Artificial Tears-Hypromellose Drops 15 Ml Btl) 2 drops BOTH EYES Q4HR [facility] Last Admin: 01/08/24 21:31 Dose: 2 drops Bisacodyl (Bisacodyl 10 Mg Supp) 10 mg RECTAL DAILY [facility] Last Admin: 01/08/24 08:28 Dose: 10 mg Chlorhexidine Gluconate (Chlorhexidine Gluconate 15 Ml Cup) 15 ml MUCOUS MEM BID [facility] Last Admin: 01/08/24 21:28 Dose: 15 ml Darbepoetin Scooby (Darbepoetin Scooby 40 Mcg/0.4 Ml Syringe) 40 mcg SQ Q7D [facility] Last Admin: 01/07/24 08:36 Dose: 40 mcg Dextrose/Water (Dextrose 50% Syringe 50 Ml) 25 ml IVP PER PROTOCOL PRN; Protocol PRN Reason: Hypoglycemia Last Admin: 01/03/24 06:18 Dose: 25 ml Dextrose/Water (Dextrose 50% Syringe 50 Ml) 50 ml IVP PER PROTOCOL PRN; Protocol PRN Reason: Hypoglycemia Last Admin: 12/25/23 18:03 Dose: 50 ml Hydralazine HCl (Hydralazine Hcl 20 Mg/Ml 1 Ml Vial) 10 mg IVP Q6HR PRN PRN Reason: SBP >140 Last Admin: 01/07/24 23:28 Dose: 10 mg Hydromorphone HCl (Hydromorphone 2 Mg/Ml 1 Ml Syringe) 1.5 mg IVP Q4H [facility] Last Admin: 01/08/24 21:29 Dose: 1.5 mg Clevidipine 25 mg/ IV Solution 50 mls @ 2 mls/hr IV .Q24H [facility]; Protocol Last Titration: 01/07/24 21:36 Dose: 0 mg/hr, 0 mls/hr Propofol 1,000 mg/ IV Solution 100 mls @ 8.757 mls/hr IV .[id number] [facility]; Protocol Last Titration: 01/08/24 18:06 Dose: 30 mcg/kg/min, 17.514 mls/hr Cisatracurium Besylate 200 mg/ (Sodium Chloride) 200 mls @ 5.838 mls/hr IV .Q24H [facility]; Protocol Last Titration: 01/08/24 12:53 Dose: 0 mcg/kg/min, 0 mls/hr Ceftolozane/Tazobactam 3 gm/ (Sodium Chloride) 100 mls @ 100 mls/hr IV Q8HR [facility]; Protocol Last Admin: 01/08/24 16:31 Dose: 100 mls/hr Sodium Bicarbonate 150 ml/ (Dextrose/Water) 1,150 mls @ 75 mls/hr IV .[id number] [facility] Last Admin: 01/08/24 09:28 Dose: 75 mls/hr Parenteral Vitamin Supplement 10 ml/ Zinc/Copper/Manganese/Selenium 1 ml/ Sodium Acetate 24 meq/ Magnesium Sulfate 0.75 gm/ Calcium Gluconate 0.5 gm/Potassium Phosphate 6 mmol/Potassium Acetate 10 meq/Amino Acids/Dextrose 1,036.5 mls @ 90 mls/hr IV .BY DURATION [facility] Sodium Acetate 24 meq/Magnesium Sulfate 0.75 gm/Calcium Gluconate 0.5 gm/Potassium Phosphate 6 mmol/Potassium Acetate 10 meq/Amino Acids/Dextrose 1,025.5 mls @ 90 mls/hr IV .BY DURATION [facility] Last Admin: 01/08/24 13:51 Dose: 90 mls/hr Insulin Aspart (Insulin Aspart (Novolog) 100 Unit/Ml Vial) 0 unit SQ 0000,0600,1200,1800 [facility]; Protocol Last Admin: 01/08/24 17:41 Dose: 2 unit Levetiracetam (Levetiracetam Iv 500 Mg/5 Ml Vial) 250 mg IVP Q24HR [facility] Last Admin: 01/08/24 08:27 Dose: 250 mg Lorazepam (Lorazepam 2 Mg/Ml Inj) 1 mg IV Q6HR PRN PRN Reason: Agitation Last Admin: 01/06/24 09:55 Dose: 1 mg Miscellaneous Information (Potassium Replacement Protocol 1 Each Misc) 1 each MISCELLANE DAILY PRN; Protocol PRN Reason: Per Protocol Miscellaneous Information (Magnesium Replacement Protocol 1 Each Misc) 1 each MISCELLANE DAILY PRN; Protocol PRN Reason: Per Protocol Multi-Ingred Cream/Lotion/Oil/Oint (Hydrophilic Cream 180 Gm Tube) 1 applic TOPICAL BID [facility]; Protocol Last Admin: 01/08/24 21:30 Dose: 1 applic Multi-Ingredient Ointment (Zinc Oxide 20% Oint 28.4 Gm Tube) 1 applic TOPICAL BID PRN; Protocol PRN Reason: Skin Irritation Naloxone HCl (Naloxone 0.4 Mg/Ml 1 Ml Vial) 0.2 mg IV Q2M PRN PRN Reason: Opioid Reversal Pantoprazole Sodium (Pantoprazole 40 Mg/10 Ml Vial) 40 mg IVP BID [facility] Last Admin: 01/08/24 21:28 Dose: 40 mg Petrolatum (Zinc Oxide Paste (Z-Guard) 1 Applic) 1 applic TOPICAL BID [facility]; Protocol Last Admin: 01/08/24 21:30 Dose: 1 applic Past medical history to include: GERD Social history: . No smoking. Physical examination: VITAL SIGNS: 97.3, 81, 24, 1 4153, 96% on the ventilator GENERAL: Sedated getting TPN and lipids EYES: Pupils equal. Conjunctiva edouard l. HEENT: External appearance of nose and ears normal, tracheostomy-. NECK: JVD unable to assess; masses not palpable. HEART: First and second heart sounds are normal; edema, present LUNGS: Respiratory rate increased, decreased breath sounds right chest wall pigtail catheter ABDOMEN: Soft, some tenderness. Liver spleen not palpable, no masses palpable..jejunostomy tube-dressing in place, . RAYA drain. Incision with stitches with - wound VAC PSYCH: Sedated NEURO: Patient sedated INVESTIGATIONS, reviewed in the clinical context: January 06: White count 11.4 hemoglobin 7.4 potassium [address] abdomen pelvis [January 05]: 3.1 cm organized fluid collection within the rectovesicular space concerning for abscess. No change in right upper lung 4.9 cm fluid collection with a fluid level. For possible pulmonary abscess. Moderate size right lung base multiloculated hydropneumothorax possibly abscess. Additional areas of air bronchograms. January 05: White count 10.6 hemoglobin 7.6 platelets 111 sodium 137 potassium 3.5 BUN 44 creatinine 0.95 January 03: White count 13.4 hemoglobin 8.1 platelets 95 potassium 5.2 creatinine 1.1 albumin 1.8 Sputum culture [December 24] Citrobacter freundii, Pseudomonas aeruginosa Blood culture [December 24] Staphylococcus pettenkoferi December 24: White count 1.5 hemoglobin 8.2 platelets 106 potassium 3.8 BUN [address] chest abdomen without contrast [December 16] right upper lung cavitary lesion with air-fluid level in the posterior aspect and a larger cavitary lesion possibly within the lung parenchyma itself. Extending down towards the diaphragm additional airspace opacities in the left lung base. December 09: White count 26.1 hemoglobin 8.6 platelets 154 potassium 4.1 BUN 86 creatinine 3.31. Hemoglobin this morning was 6.6 prior to transfusion EEG-evidence of generalized cerebral dysfunction and sporadic intermittent higher amplitude sharply contoured waves mainly bifrontal. Showing cortical irritability. 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 Serosal fibrous adhesions. Viable margins. Sputum culture: [November 25]: Citrobacter freundii. Pseudomonas aeruginosa November 20: White count 14.4 hemoglobin 8.8 platelets 229 potassium 4.1 BUN [address] scan abdomen [November 19] possible small bowel obstruction Stool: C. difficile negative November 15: WBC 13 hemoglobin 7.7 platelets 248 potassium 4.3 creatinine 0.87 2D echo: EF 55 to 60%. Kidneys bladder: Unremarkable November 13: White count 12 hemoglobin 6.9 platelets 276 potassium 4.4 creatinine 1.21 magnesium 1.8 iron 6 TIBC 365% saturation 1.64 transferrin 261 ferritin 34.6 B12 569 folate 4.4 November 11: Creatinine 0.86 EGD: Large amount of retained solid liquid food noted in the stomach. Large superficial gastric antral ulceration involving most of the antrum extending into the pylorus causing pyloric stenosis. Biopsies were obtained. Chest x-ray film personally reviewed by me-scattered infiltrates Assessment plan: -Aspiration and gram-negative bacterial pneumonia a bilateral initially from retained gastric contents mostly food and liquids, causing acute hypoxic respiratory failure: On presentation: Subsequent bacterial pneumonia sputum culture November 25: Citrobacter freundii, Pseudomonas aeruginosa. December 13: Klebsiella oxytoca, Pseudomonas aeruginosa IV meropenem-was received originally. Also received IV Zosyn. , IV ceftolozane/tazobactam, IV daptomycin-discontinued -Breakdown of tracheostomy stoma site. Being followed by broadcast maintenance technician -Sepsis with septicemia from above Antibiotics -Right leg abscess, pigtail catheter placed January 07, 2024. Initially about 200 cc of pus obtained. During the procedure large amount of pus poured out of the tracheostomy site when patient was rolled on the left side. Status post bronchoscopy with some lavage on 01/07/2024 - lung abscess larger 1 on the right side-patient cultures are growing Pseudomonas and Klebsiella oxytoca: Slow to respond , daptomycin, discontinued.IV ceftolozane/tazobactam -Acute pulmonary edema and fluid overload from hypoalbuminemic state and fluids from IV.:: Has been getting Lasix and dialysis: Both held -Altered mentation. Possibly encephalopathy. Could be delirium.: Not improving CT brain [December 06] nothing acute Neurology following EEG-evidence of generalized cerebral dysfunction and sporadic intermittent higher amplitude sharply contoured waves mainly bifrontal. Showing cortical irritability. Keppra was started on December 07 -Critical care poly- Pedro neuropathy: Slow to respond PT OT -Gallstones, asymptomatic -Small l bowel perforation at site of jejunostomy tube tip with balloon..: Portion of small bowel resected. On November 24. New J-tube was placed.- drainage to gravity:-Now discontinued December 19: J-tube blocked. J-tube replaced on December 20 over wire December 21: Leaking around the J-tube site. Feeding held December 23: J feeding was started yesterday evening but again started leaking increasingly around the J-tube site-feeding held again December 24: J-tube feeding has been held. Patient is currently having increased drainage from the J-tube site -Acute kidney injury. Possible ATN from hypotensive shock: Resolved Renal ultrasound unremarkable. Started on renal replacement therapy on November 28. Last hemodialysis on December 17. Being followed by an nephrology. Good urine output. -Nutrition Jejunostomy tube placed November [address] Ewing Received TPN-this was discontinued. TPN lipids restarted on December 24 -Lung abscess, not improving Antibiotics to continue. Pulmonary and ID following -Midline abdominal incision wound dehiscence Wound VAC placed -Acute recurrent atrial fibrillation-converted to sinus rhythm Received IV amiodarone. Cardiology following Lopressor -Acute hypoxic respiratory failure from aspiration pneumonia, status post ventilator assisted: Reintubated November 25. FiO2 35 PEEP of 5 Tracheostomy tube-by Dr. Zepeda on December 09 -Septic shock, recovered -Hypertension, recurrent Restarted Cleviprex-yesterday. Hydralazine added -Intermittent hypotension: Corrected Intermittent use of Levophed. 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 Also anemia of blood draw. Iron deficiency anemia Received total of 6 units of blood IV iron. -Severe thrombocytopenia. Would consider coagulation disorder secondary to infection., In the setting of underlying lymphoma.: Fluctuating with infection Hematology following. -Acute blood loss anemia, -Sacral stage II decub ulcer Dressing in place -Hypokalemia, multiple causes -Hypoglycemia -GERD PPI -Acute diarrhea secondary to tube feeding.: Resolved C. difficile ruled out. -Large superficial gastric antral ulceration involving the gastric antrum extending into the pylorus with gastric outlet obstruction. 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 -Full code Patient put on Nimbex. Propofol. Antibiotics to continue. Per surgery and enteral feeding through the tube not to be done currently. Has increased further secretions. Prognosis remains very guarded sputum is again growing Pseudomonas aeruginosa. Past Medical History Past Medical History: GERD/Reflux History of Any Multi-Drug Resistant Organisms: None Reported Past Surgical History: Heart Catheterization Additional Past Surgical History / Comment(s): colonsocopy,spinal injection, Past Anesthesia/Blood Transfusion Reactions: No Reported Reaction Past Psychological History: No Psychological Hx Reported Smoking Status: Never smoker Past Alcohol Use History: None Reported Past Drug Use History: None Reported
[2024-01-08 23:59] LABS: Glucose,Whole Blood 179 mg/dL (70-110)
[2024-01-09] MEDS: POTASSIUM CHLORIDE 20 MEQ in WATER FOR INJECTION 1 100ML.BAG IVPB SCH (02:14)
[2024-01-09 04:49] LABS: Anisocytosis Slight; Basophils # (A) 0.2 k/uL (0-0.2); Basophils % (A) 1 %; Eosinophils # (A) 0.3 k/uL (0-0.7); Eosinophils % (A) 2 %; HCT 22.8 % (39.0-53.0); HGB 7.3 gm/dL (13.0-17.5); Hypochromasia Slight; Lymphocytes # (A) 2.7 k/uL (1.0-4.8); Lymphocytes % (A) 18 %; MCH 29.2 pg (25.0-35.0); MCV 91.1 fL (80.0-100.0); Mean Platelet Volume 9.7; Monocytes # (A) 0.7 k/uL (0-1.0); Monocytes % (A) 4 %; Neutrophils # (A) 11.3 k/uL (1.3-7.7); Neutrophils % (A) 74 %; Platelet Count 176 k/uL (150-450); Poikilocytosis Slight; RDW 18.4 % (11.5-15.5); WBC 15.3 k/uL (3.8-10.6)
[2024-01-09 05:01] LABS: African American GFR (CKD) >90 (>60 ml/min/1.73 sqM); Anion Gap 2 mmol/L; Blood Urea Nitrogen 47 mg/dL (9-20); Calcium 7.3 mg/dL (8.4-10.2); Carbon Dioxide 24 mmol/L (22-30); Chloride 111 mmol/L (98-107); Glucose 157 mg/dL (74-99); Magnesium 1.9 mg/dL (1.6-2.3); Non-African American GFR(CKD) 86 (>60 ml/min/1.73 sqM); Phosphorus 2.5 mg/dL (2.5-4.5); Potassium 3.6 mmol/L (3.5-5.1); Sodium 137 mmol/L (137-145)
[2024-01-09 05:02] LABS: ABG Base Excess 0.7 mmol/L; ABG HCO3 25 mmol/L (21-25); ABG Oxygen Saturation 96.2 % (94-97); ABG PCO2 40 mmHg (35-45); ABG PH 7.42 (7.35-7.45); ABG PO2 75 mmHg (83-108); ABG TCO2 27 mmol/L (19-24)
[2024-01-09 05:06] LABS: Allen Test Performed? no
[2024-01-09 05:17] LABS: Glucose,Whole Blood 147 mg/dL (70-110)
[2024-01-09] MEDS: MAGNESIUM SULFATE-D5W PMX 1 GM in DEXTROSE/WATER 1 100ML.BAG IVPB ONE (05:21)
--- NOTE | 2024-01-09 07:50 | XR ---
EXAMINATION TYPE: XR chest 1V DATE OF EXAM: 01/09/2024 5:47 AM COMPARISON: None. CLINICAL INDICATION: Male, 73 years old with history of Mechanical ventilation, TECHNIQUE: XR chest 1V view(s) obtained. FINDINGS: The heart size is normal. The pulmonary vasculature is normal. Mild infiltrates scattered through the left mid and lower lung field. This is improving. Consolidatio n is in the right lower lobe. Drainage catheter remains at the right lateral chest. Central venous catheter tip is deep in the right atrium. Tracheostomy tube is in the midline. PICC li ne enters on the left with the tip in the superior vena cava region. IMPRESSION: 1. Persistent right lower lobe consolidation. Drainage catheter and suspected empyema remains present . 2. Mild improving left lower lung field infiltrate. 3. Lines and catheters discussed above [facility], , 01/09/2024 7:47 AM
--- NOTE | 2024-01-09 09:18 | P.PN ---
Subjective Patient is seen in follow-up for acute kidney injury. Patient underwent exploratory laparotomy with small bowel obstruction NG tube replacement Sep tember 2023. Nonoliguric. Started on hemodialysis November 29, 2023. Last dialysis December 18, 2023. Status post tracheostomy December 10, 2023. Renal function has improved. Receiving TPN. Off vasopressors. Underwent drainage of lung abscess January 07, 2024. Sedation being weaned off. Vital signs stable. General: Resting in bed. HEENT: Tracheostomy noted. LUNGS: Scattered rhonchi. Chest tube noted. HEART: Regular rate and rhythm. ABDOMEN: No drainage. EXTREMITITES: Trace edema. Objective - Vital Signs Vital signs: Vital Signs Temp 97.9 F 01/09/24 08:00 Pulse 90 01/09/24 09:00 Resp 22 01/09/24 09:00 BP 122/83 01/09/24 09:00 Pulse Ox 96 01/09/24 09:00 FiO2 30 01/09/24 07:44 Intake & Output 01/08/24 01/09/24 01/09/24 18:59 06:59 18:59 Intake Total 3204.317 2340.213 574.108 Output Total 1345 1283 720 Balance 7972.796 5942.213 -145.892 Weight 99 kg 104 kg Intake: IV 2686 2256 469 0.9 Normal Saline @ KVO 120 240 40 Ceftolozane/Tazobactam 3 200 gm In Sodium Chloride 0.9 % 100 ml @ 100 mls/hr IV Q8H [facility] Rx#:[id number] Dextrose 5% in Water 1, 750 900 150 000 ml @ 75 mls/hr IV . [id number] [facility] with Sodium Bicarb (1 Meq/ml) 150 ml Rx#:[id number] Magnesium 100 Normal Saline Pressure 36 36 9 Saline Potassium Chloride 10 meq 300 In Water For Injection 1 100ml.bag @ 100 mls/hr IVPB Q1H [facility] Rx#: [id number] Potassium Phosphate 10 100 mmol In Sodium Chloride 0 .9% 250 ml @ 125 mls/hr IV ONCE ONE Rx#:[id number] TPN 1080 1080 270 Intake, IV Titration 518.317 84.213 105.108 Amount Cisatracurium 200 mg In 196.449 Sodium Chloride 0.9% 180 ml @ 1 MCG/KG/MIN 5.838 mls/hr IV .Q24H [facility] Rx#: [id number] Magnesium Sulfate-D5w Pmx 100 1 gm In Dextrose/Water 1 100ml.bag @ 100 mls/hr IVPB ONCE ONE Rx#: [id number] propofoL 1,000 mg In 321.868 84.213 5.108 Empty Bag 1 bag @ 15 MCG/ KG/MIN 8.757 mls/hr IV . [id number] [facility] Rx#:[id number] Output: Chest Tube Drainage 70 78 20 Chest Tube Right 70 78 20 Drainage 160 120 25 Right Abdomen 160 120 25 Urine 1115 1085 675 Other: Voiding Method Indwelling Catheter Indwelling Catheter ABP, PAP, CO, CI - Last Documented Arterial Blood Pressure 141/62 - Labs CBC & Chem 7: 01/09/24 04:35 01/09/24 04:35 Labs: Abnormal Lab Results - Last 24 Hours (Table) 01/08/24 01/08/24 01/08/24 Range/Units 11:47 17:34 23:55 WBC (3.8-10.6) k/uL RBC (4.30-5.90) m/uL Hgb (13.0-17.5) gm/dL Hct (39.0-53.0) % RDW (11.5-15.5) % Neutrophils # (1.3-7.7) k/uL ABG pO2 (83-108) mmHg ABG Total CO2 (19-24) mmol/L Hemoglobin (13.0-17.5) gm/dL Potassium 3.2 L (3.5-5.1) mmol/L Chloride (98-107) mmol/L BUN (9-20) mg/dL Glucose (74-99) mg/dL POC Glucose (mg/dL) 174 H 154 H (70-110) mg/dL Calcium (8.4-10.2) mg/dL 01/08/24 01/09/24 01/09/24 Range/Units 23:58 04:35 04:35 WBC 15.3 H (3.8-10.6) k/uL RBC 2.50 L (4.30-5.90) m/uL Hgb 7.3 L (13.0-17.5) gm/dL Hct 22.8 L (39.0-53.0) % RDW 18.4 H (11.5-15.5) % Neutrophils # 11.3 H (1.3-7.7) k/uL ABG pO2 (83-108) mmHg ABG Total CO2 (19-24) mmol/L Hemoglobin (13.0-17.5) gm/dL Potassium (3.5-5.1) mmol/L Chloride 111 H (98-107) mmol/L BUN 47 H (9-20) mg/dL Glucose 157 H (74-99) mg/dL POC Glucose (mg/dL) 179 H (70-110) mg/dL Calcium 7.3 L (8.4-10.2) mg/dL 01/09/24 01/09/24 Range/Units 05:00 05:15 WBC (3.8-10.6) k/uL RBC (4.30-5.90) m/uL Hgb (13.0-17.5) gm/dL Hct (39.0-53.0) % RDW (11.5-15.5) % Neutrophils # (1.3-7.7) k/uL ABG pO2 75 L (83-108) mmHg ABG Total CO2 27 H (19-24) mmol/L Hemoglobin 7.5 L (13.0-17.5) gm/dL Potassium (3.5-5.1) mmol/L Chloride (98-107) mmol/L BUN (9-20) mg/dL Glucose (74-99) mg/dL POC Glucose (mg/dL) 147 H (70-110) mg/dL Calcium (8.4-10.2) mg/dL Microbiology - Last 24 Hours (Table) 01/07/24 12:15 Gram Stain - Preliminary Pleural Fluid Body Fluid Culture - Preliminary 01/07/24 15:07 Gram Stain - Preliminary Sputum Sputum Culture - Preliminary Pseudomonas aeruginosa Assessment and Plan Plan: Assessment: 1. Acute kidney injury secondary to ATN secondary to septic shock. Creatinine 0.86 on admission and up to 5.38 dated November 29, 2023. Urine output improved, now nonoliguric. UA fairly benign. No hydronephrosis noted on imaging. Started on hemodialysis November 29, 2023 due to volume overload. Patient initially had a right femoral catheter placed which subsequently became occluded and a left tunneled femoral catheter was placed December 06, 2023. Renal function back to baseline. 2. Perforated small bowel status post exploratory laparotomy with abdominal washout, small bowel resection and J-tube replacement November 25, 2023. 3. A-fib with RVR. s/p amiodarone drip. Also received digoxin this admission. 4. Recently diagnosed gastric B-cell lymphoma. 5. Septic shock. Likely abdominal source. On IV antibiotics. Blood culture positive for staph. ID following. Dialysis catheter removed. 6. Hypocalcemia secondary to acute kidney injury. Replaced. Improved. 7. Metabolic acidosis secondary to acute kidney injury, TPN. 8. Volume overload. Improved with diuresis and ultrafiltration. 9. Status post tracheostomy December 10, 2023. 10. Anemia. Component of chronic illness and acute blood loss. Received blood transfusions and DDAVP this admission. On Aranesp. 11. Respiratory and metabolic acidosis started on bicarb drip today. 12. Hypernatremia from lack of oral water intake. Status post D5W. Sodium level now normal. Plan: Last dialysis December 18, 2023. No further need at this time. Dialysis catheter removed December 28, 2023. Receiving TPN. Avoid nephrotoxins. Preserved EF noted on echocardiogram. Case discussed with family present at bedside. Replace potassium and magnesium as needed. Lasix as needed. IV fluids discontinued.
--- NOTE | 2024-01-09 11:31 | P.PN ---
Subjective Progress Note Date: 01/09/24 01/06/2024, the patient is being seen for a follow-up. The patient remains off sedation. The patient is arousable. Remains profoundly weak and debilitated. He remains on the mechanical ventilator, assist-control mode with rate of 32, tidal volume of 450, FiO2 of 30% with a PEEP of 5. Chest x-ray shows extensive consolidation of the right lung and right upper lobe opacity with a previously described cavity. Blood gas shows a pH of 7.4 with a pCO2 of 34 pO2 of 93. The patient remains on KVO IV fluids. The patient is on TPN for nutritional support at a rate of 90 cc an hour. Fluid balance is +1.3 L over the past 24 hours. The patient is receiving Dilaudid for pain control. While off Dilaudid, he developed hypertension and overnight the patient was started on Cleviprex at 4 mg an hour. RAYA drain has produced around 40 cc over the past 24 hours. The J- tube is nonfunctional. The wound VAC is still in place. The blood work from today shows a white cell count of 10.6 and hemoglobin of 7.6 and a platelet count of 111. Renal function is normalized and the patient's BUN is 44 with a creatinine of 0.9. Serum bicarb is at 19 with a chloride of 115 and a sodium level at 137. LFTs are normal with an alkaline phosphatase of 222. The sputum sample was positive for Citrobacter and Pseudomonas. The Pseudomonas aeruginosa was quite resistant and the patient is currently on a combination of ceftolozane and tazobactam. Afebrile. Hemodynamically stable. Cardiac rhythm is sinus. On 01/07/2024, the patient remains off sedation. Somewhat encephalopathic. Extremely weak, occasionally follows some simple commands. Unable to raise his arms against gravity. Continues to have respiratory secretions and coughing episodes specially once the effect of Dilaudid wears off. Remains on a m Trivopanical ventilator. He was able to tolerate pressure support of 12 and a PEEP of 5 for a total of 4 hours yesterday. Overnight, the patient was kept on assist-control mode of mechanical ventilation this morning he is on assist- control of 20, tidal volume of 500, FiO2 of 30% with a PEEP of 5. The patient was placed back on pressure support mode of mechanical ventilation this is being done on a daily basis. Blood gas showed a pH of 7.44 with a pCO2 of 30 and pO2 100. Discussed the case with interventional radiology and the patient has a right lung abscess and the patient is going to have a pigtail catheter inserted today. Renal function is normal. TPN is running at a rate of 90 cc an hour. The J-tube is not being utilized at this point. Fluid balance is +149 cc over the past 24 hours. RAYA drain output is noted. Output is serosanguineous. Wound VAC is in place. The patient remains on Cleviprex at 2 mg an hour and the patient receiving hydralazine 10 mg for blood pressure control every 6 hours. He remains on a broad-spectrum antibiotic coverage and he is on ceftolozane elizabeth obactamBlood work from today shows a WBC count of 11.4, hemoglobin of 7.4 and a platelet count of 145. BUN is 44 with a creatinine of 0.8 and sodium levels at 136 and potassium levels at 3.4. Glucose is 166. 01/08/2024, the patient is sedated on propofol and the patient is also paralyzed on Nimbex. Propofol during 50 mcg/kg/min and Nimbex at 4 mcg. The patient had to be sedated and paralyzed as the patient had frequent coughing spells to the point where the patient was unable to ventilate while being on the mechanical ventilator. Noted he had a pigtail catheter inserted yesterday. Pus was drained from his right hemithorax and a total amount of output is around 90 cc over the past 12 hours no purulent material and the patient has a positive airleak. The chest x-ray is still showing an area of consolidation which is quite extensive in the right lung with some improvement in the aeration of the right lung. Tracheostomy tube is in good location. A bronchoscopy was done. Unable to locate a bronchopleural fistula. Therapeutic airway suctioning was done. Respiratory secretions were suctioned out and sent for cultures. The right lung abscess was also sent for cultures. Currently on assist-control at rate of 20, tidal volume of 500, FiO2 of 30% with a PEEP of 5. Blood gas showed pH of 7.25 with a pCO2 of 50 and pO2 of 76. A white cell count of 17.3 with a hemoglobin 7.1 and a platelet count of 157. His sodium level is at 135, potassium levels at 3.4, bicarb is at 19 with a BUN of 45 with a creatinine of 0.8. Phosphorus is at 2.9, magnesium is at 1.8. Blood sugars of 208. He remains on ceftolozane/tazobactam. RAYA drain is still in place. Wound VAC is still in place. Receives TPN for nutritional support. The patient is not receiving enteral feeding. The J-tube is nonfunctional. 01/09/2024: Patient seen and evaluated at bedside. patient is currently off propofol 10. Has not been moving extremities. Opened eyes once. The patient is getting scheduled diluadid and has been helping with his cough. Patient is off the nimbex. Secretions through tracheal tube, thick yellow in nature. Pus was drained from right jassi-thorax, total amoung is around 60cc over the past 12 hours, no purulent material. Chest tube air-leak present. j-tube still leaking, greeni sh/brownish color. Currently on assist-control at rate of 20, tidal volume increased to 600, FiO2 of 30% with a PEEP of 5. Blood gas showed pH of 7.42 with a pCO2 of 40 and pO2 of 75. A white cell count of 15.3 with a hemoglobin 7.3 and a platelet count of 176. His sodium level is at 137, potassium levels at 3.6, bicarb is at 24 with a BUN of 47 with a creatinine of 0.89. Phosphorus is at 2.5, magnesium is at 1.9. Blood sugars of 157. He remains on ceftolozane/tazobactam. RAYA drain is still in place. Wound VAC is still in place. Receives TPN for nutritional support. The patient is not receiving enteral feeding. The J-tube is nonfunctional. Objective - Vital Signs Vital signs: Vital Signs Temp 98.2 F 01/09/24 04:00 Pulse 90 01/09/24 06:00 Resp 20 01/09/24 06:00 BP 126/78 01/09/24 06:00 Pulse Ox 95 01/09/24 06:00 FiO2 30 01/09/24 06:00 Intake & Output 01/08/24 01/08/24 01/09/24 06:59 18:59 06:59 Intake Total 3194.217 1975.317 2331.504 Output Total 1080 1345 1283 Balance 564.827 4919.317 1048.504 Weight 99 kg 99 kg 104 kg Intake: IV 1236 2686 2256 0.9 Normal Saline @ KVO 120 120 240 Ceftolozane/Tazobactam 3 200 gm In Sodium Chloride 0.9 % 100 ml @ 100 mls/hr IV Q8H [facility] Rx#:[id number] Dextrose 5% in Water 1, 750 900 000 ml @ 75 mls/hr IV . [id number] [facility] with Sodium Bicarb (1 Meq/ml) 150 ml Rx#:[id number] Magnesium 100 Normal Saline Pressure 36 36 36 Saline Potassium Chloride 10 meq 300 In Water For Injection 1 100ml.bag @ 100 mls/hr IVPB Q1H [facility] Rx#: [id number] Potassium Phosphate 10 100 mmol In Sodium Chloride 0 .9% 250 ml @ 125 mls/hr IV ONCE ONE Rx#:[id number] TPN 1080 1080 1080 Intake, IV Titration 344.222 518.317 75.504 Amount Cisatracurium 200 mg In 181.270 196.449 Sodium Chloride 0.9% 180 ml @ 1 MCG/KG/MIN 5.838 mls/hr IV .Q24H [facility] Rx#: [id number] Clevidipine Butyrate 25 45.900 mg In Empty Bag 1 bag @ 1 MG/HR 2 mls/hr IV .Q24H [facility] Rx#:[id number] propofoL 1,000 mg In 117.052 321.868 75.504 Empty Bag 1 bag @ 15 MCG/ KG/MIN 8.757 mls/hr IV . [id number] [facility] Rx#:[id number] Output: Chest Tube Drainage 90 70 78 Chest Tube Right 90 70 78 Drainage 100 160 120 Right Abdomen 100 160 120 Urine 890 1115 1085 Other: Voiding Method Indwelling Catheter Indwelling Catheter Indwelling Catheter ABP, PAP, CO, CI - Last Documented Arterial Blood Pressure 157/66 - Labs CBC & Chem 7: 01/09/24 04:35 01/09/24 04:35 Labs: Abnormal Lab Results - Last 24 Hours (Table) 01/08/24 01/08/24 01/08/24 Range/Units 11:47 17:34 23:55 WBC (3.8-10.6) k/uL RBC (4.30-5.90) m/uL Hgb (13.0-17.5) gm/dL Hct (39.0-53.0) % RDW (11.5-15.5) % Neutrophils # (1.3-7.7) k/uL ABG pO2 (83-108) mmHg ABG Total CO2 (19-24) mmol/L Hemoglobin (13.0-17.5) gm/dL Potassium 3.2 L (3.5-5.1) mmol/L Chloride (98-107) mmol/L BUN (9-20) mg/dL Glucose (74-99) mg/dL POC Glucose (mg/dL) 174 H 154 H (70-110) mg/dL Calcium (8.4-10.2) mg/dL 01/08/24 01/09/24 01/09/24 Range/Units 23:58 04:35 04:35 WBC 15.3 H (3.8-10.6) k/uL RBC 2.50 L (4.30-5.90) m/uL Hgb 7.3 L (13.0-17.5) gm/dL Hct 22.8 L (39.0-53.0) % RDW 18.4 H (11.5-15.5) % Neutrophils # 11.3 H (1.3-7.7) k/uL ABG pO2 (83-108) mmHg ABG Total CO2 (19-24) mmol/L Hemoglobin (13.0-17.5) gm/dL Potassium (3.5-5.1) mmol/L Chloride 111 H (98-107) mmol/L BUN 47 H (9-20) mg/dL Glucose 157 H (74-99) mg/dL POC Glucose (mg/dL) 179 H (70-110) mg/dL Calcium 7.3 L (8.4-10.2) mg/dL 01/09/24 01/09/24 Range/Units 05:00 05:15 WBC (3.8-10.6) k/uL RBC (4.30-5.90) m/uL Hgb (13.0-17.5) gm/dL Hct (39.0-53.0) % RDW (11.5-15.5) % Neutrophils # (1.3-7.7) k/uL ABG pO2 75 L (83-108) mmHg ABG Total CO2 27 H (19-24) mmol/L Hemoglobin 7.5 L (13.0-17.5) gm/dL Potassium (3.5-5.1) mmol/L Chloride (98-107) mmol/L BUN (9-20) mg/dL Glucose (74-99) mg/dL POC Glucose (mg/dL) 147 H (70-110) mg/dL Calcium (8.4-10.2) mg/dL Microbiology - Last 24 Hours (Table) 01/07/24 12:15 Gram Stain - Preliminary Pleural Fluid Body Fluid Culture - Preliminary 01/07/24 15:07 Gram Stain - Preliminary Sputum Sputum Culture - Preliminary Pseudomonas aeruginosa Assessment and Plan Plan: #. Acute hypoxemic respiratory failure with failure to wean from mechanical ventilation, S/P tracheostomy on December 10, 2023. The patient has bilateral pneumonia with a cavitary infiltrate in the right upper lobe, secondary to Pseudomonas aeruginosa and Citrobacter and the patient is currently on a combination of ceftolozane/tazobactam. CAT scan of the chest done on 12/17/2023 was reviewed and the patient has a cavitating cyst/abscess in the posterior aspect of the right upper lobe in addition to patchy opacities bilaterally right more than left consistent with pneumonia,/gram-negative pneumonia. The patient had a pigtail catheter inserted with drainage of the right lung abscess. Encountered significant amount of coughing, unable to ventilate and the patient based on that was placed on propofol and Nimbex for sedation and paralysis. Positive air leak through the pigtail catheter. Rule out bronchopleural fistula. Bronchoscopy was done yesterday, unable to identify a fistula. Therapeutic airway suctioning was done. Cultures were sent. #. Hospital-acquired right lung pseudomonal/Klebsiella pneumonia. Patient is currently on IV ceftolozane/tazobactam. Chest x-ray from remains unchanged. Respiratory secretions are copious. The patient is having also frequent coughing episodes. The patient is currently sedated and paralyzed to maintain adequate ventilation and oxygenation. #. 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 #. Small bowel perforation with abdominal contamination. The patient is status post expiratory laparotomy and small bowel resection and insertion of another jejunostomy tube. The patient jejunostomy is not functional and remains clogged and this was unclogged yesterday. Nevertheless, the tube itself is still malfunctioning. However, the abdominal wound is dehisced and is infected. RAYA drain output is serosanguineous. A wound VAC was applied to the anterior abdominal wall. #. Peritonitis secondary to above, recovered #. Septic shock secondary to above, the patient is currently off pressors #. Atrial fibrillation with rapid medical response, currently back into normal sinus rhythm . #. Acute kidney injury, off hemodialysis and renal function has normalized #. History of acute aspiration during upper endoscopy most likely secondary to gastric outlet obstruction secondary to non-Hodgkin's lymphoma. #. Weight loss most likely secondary non-Hodgkin's lymphoma involving the stomach. #. Anemia of chronic disease Multifactorial Hemoglobin is stable for now #. Encephalopathy, multifactorial, stable Profound weakness in all 4 extremities and the patient is unable to move at this point in time. Motor function 0 out of 5 in all 4 extremities. Positive cough. Positive gag. 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 #. Malfunctioning of the J-tube Currently on TPN for nutritional support #. Hypertension Off the Cleviprex On hydralazine as needed Plan Continue ventilator support. Patient off Nimbex Gave the patient sedation holiday Bronchoscopy was done, unable to find a fistula although the possibility of bronchopleural fistula cannot be completely ruled out as the patient continues to have purulent secretions and frequent coughing episodes. He does have a positive air leak in his pigtail catheter. Cultures from the right lung abscess and sputum showing Pseudomonas Continue IV ceftolozane/tazobactam The J-tube needs to be readdressed. It is nonfunctional and the patient is on TPN for nutritional support IV fluids to KVO Monitor fever pattern General Surgery is on the case regarding abdominal wound Continue hydralazine and the patient is off Cleviprex Condition remains extremely critical with poor prognosis based on the above Will continue to follow this patient along with the rest of the consultants. Condition is critical over the poor outcome based on the above. Evaluation was done more than 30 minutes.
[2024-01-09 11:54] LABS: Glucose,Whole Blood 164 mg/dL (70-110)
--- NOTE | 2024-01-09 13:11 | P.PN ---
Subjective Progress Note Date: 01/08/24 Principal diagnosis: Reason for follow-up is pneumonia and bacteremia Patient is 73-year-old with male initial presentation to the hospital on 11/11/2021 for after the patient did have aspiration while undergoing elective endoscopy, diagnosed with a non-Hodgkin of, subsequently did have explained laparotomy for perforated small bowel abdominal washout and feeding jejunostomy tube patient did require dialysis catheter placement for dialysis during this hospital stay and tracheostomy for respiratory failure, infectious was consulted for fever. On today's evaluation that is 01/08/2024,the patient remains to be afebrile, patient is on ventilator through the trach FiO2 is currently stable at 30% patient is hemodynamic stable not requiring any pressor support continues to be on TPN no diarrhea in the change reported by the nursing staff. Patient white count is up to 17.3 today, creatinine 0.85 pleural fluid and sputum cultures currently pending Objective - Vital Signs Vital signs: Vital Signs Temp 98.6 F 01/08/24 04:00 Pulse 92 01/08/24 08:01 Resp 20 01/08/24 06:30 BP 99/56 01/08/24 02:00 Pulse Ox 94 L 01/08/24 06:30 FiO2 30 01/08/24 07:33 Intake & Output 01/07/24 01/08/24 01/08/24 18:59 06:59 18:59 Intake Total 1361 1580.222 174.021 Output Total 1300 1080 Balance 61 500.222 174.021 Weight 97.3 kg 99 kg Intake: IV 1080 1236 0.9 Normal Saline @ KVO 120 Normal Saline Pressure 36 Saline TPN 1080 1080 Intake, IV Titration 281 344.222 174.021 Amount Cisatracurium 200 mg In 181.270 145.561 Sodium Chloride 0.9% 180 ml @ 1 MCG/KG/MIN 5.838 mls/hr IV .Q24H [facility] Rx#: [id number] Clevidipine Butyrate 25 50 45.900 mg In Empty Bag 1 bag @ 1 MG/HR 2 mls/hr IV .Q24H [facility] Rx#:[id number] Fat Emulsion 20% 250 ml 231 In Empty Bag 1 bag @ 21 mls/hr IV TuThSa [facility] Rx#: [id number] propofoL 1,000 mg In 117.052 28.46 Empty Bag 1 bag @ 15 MCG/ KG/MIN 8.757 mls/hr IV . [id number] [facility] Rx#:[id number] Output: Chest Tube Drainage 90 Chest Tube Right 90 Drainage 100 Right Abdomen 100 Urine 1300 890 Other: Voiding Method Indwelling Catheter Indwelling Catheter ABP, PAP, CO, CI - Last Documented Arterial Blood Pressure 102/51 - Exam GENERAL DESCRIPTION: An elderly male lying in bed in no distress RESPIRATORY SYSTEM: Unlabored breathing , decreased breath sounds at bases HEART: S1 S2 regular rate and rhythm , ABDOMEN: Soft , no tenderness EXTREMITIES: No edema feet - Labs CBC & Chem 7: 01/09/24 04:35 01/09/24 04:35 Labs: Abnormal Lab Results - Last 24 Hours (Table) 01/07/24 01/07/24 01/07/24 Range/Units 09:30 12:44 18:36 WBC (3.8-10.6) k/uL RBC (4.30-5.90) m/uL Hgb (13.0-17.5) gm/dL Hct (39.0-53.0) % RDW (11.5-15.5) % PT 13.0 H (10.0-12.5) sec INR 1.2 H (<1.2) ABG pH (7.35-7.45) ABG pCO2 (35-45) mmHg ABG pO2 (83-108) mmHg Hemoglobin (13.0-17.5) gm/dL Sodium (137-145) mmol/L Potassium (3.5-5.1) mmol/L Chloride (98-107) mmol/L Carbon Dioxide (22-30) mmol/L BUN (9-20) mg/dL Glucose (74-99) mg/dL POC Glucose (mg/dL) 162 H 157 H (70-110) mg/dL Calcium (8.4-10.2) mg/dL 01/07/24 01/08/24 01/08/24 Range/Units 23:21 04:48 04:48 WBC 17.3 H (3.8-10.6) k/uL RBC 2.34 L (4.30-5.90) m/uL Hgb 7.1 L (13.0-17.5) gm/dL Hct 22.0 L (39.0-53.0) % RDW 18.1 H (11.5-15.5) % PT (10.0-12.5) sec INR (<1.2) ABG pH (7.35-7.45) ABG pCO2 (35-45) mmHg ABG pO2 (83-108) mmHg Hemoglobin (13.0-17.5) gm/dL Sodium 135 L (137-145) mmol/L Potassium 3.4 L (3.5-5.1) mmol/L Chloride 112 H (98-107) mmol/L Carbon Dioxide 19 L (22-30) mmol/L BUN 45 H (9-20) mg/dL Glucose 208 H (74-99) mg/dL POC Glucose (mg/dL) 174 H (70-110) mg/dL Calcium 7.4 L (8.4-10.2) mg/dL 01/08/24 01/08/24 Range/Units 05:35 05:50 WBC (3.8-10.6) k/uL RBC (4.30-5.90) m/uL Hgb (13.0-17.5) gm/dL Hct (39.0-53.0) % RDW (11.5-15.5) % PT (10.0-12.5) sec INR (<1.2) ABG pH 7.25 L (7.35-7.45) ABG pCO2 50 H (35-45) mmHg ABG pO2 76 L (83-108) mmHg Hemoglobin 6.8 L* (13.0-17.5) gm/dL Sodium (137-145) mmol/L Potassium (3.5-5.1) mmol/L Chloride (98-107) mmol/L Carbon Dioxide (22-30) mmol/L BUN (9-20) mg/dL Glucose (74-99) mg/dL POC Glucose (mg/dL) 218 H (70-110) mg/dL Calcium (8.4-10.2) mg/dL Microbiology - Last 24 Hours (Table) 01/07/24 12:15 Gram Stain - Preliminary Pleural Fluid 01/07/24 15:07 Gram Stain - Preliminary Sputum Assessment and Plan (1) Sepsis Current Visit: Yes Status: Acute Code(s): A41.9 - SEPSIS, UNSPECIFIED ORGANISM SNOMED Code(s): 68794432 (2) Pneumonia Current Visit: Yes Status: Acute Code(s): J18.9 - PNEUMONIA, UNSPECIFIED ORGANISM SNOMED Code(s): 401908951 (3) Bacteremia Current Visit: Yes Status: Acute Code(s): R78.81 - BACTEREMIA SNOMED Code(s): 2186207 Plan: 1patient with pneumonia with a sputum showing Citrobacter and Pseudomonas aeruginosa, the patient sputum repeat is still growing Citrobacter and Pseudomonas, Pseudomonas that is a drug-resistant and resistant to Zosyn, patient is currently on Zerbaxa day number 10 out of 10, however keeping in mind the new findings of lung abscess on the CT status post drainage catheter placement by interventional radiology subsequently did have purulent pleural fluid which has been cultured did have a chest tube and results will be followed 2-patient also have evidence of retro vesicular abscess on the CT abdominal pelvis, this has been discussed with the surgical team on the case in person however mention patient would not be able to tolerate any further surgery. 3patient is afebrile and has slight worsening of the white count will continue Zerbaxa adjusting antibiotic further on the basis of repeat culture Family the bedside questions answered Dictation was produced using [employer] dictation software. please excuse any grammatical, word or spelling errors. Time with Patient: Less than 30
--- NOTE | 2024-01-09 13:31 | P.PN ---
Subjective Progress Note Date: 01/09/24 01/06/2024, the patient is being seen for a follow-up. The patient remains off sedation. The patient is arousable. Remains profoundly weak and debilitated. He remains on the mechanical ventilator, assist-control mode with rate of 32, tidal volume of 450, FiO2 of 30% with a PEEP of 5. Chest x-ray shows extensive consolidation of the right lung and right upper lobe opacity with a previously described cavity. Blood gas shows a pH of 7.4 with a pCO2 of 34 pO2 of 93. The patient remains on KVO IV fluids. The patient is on TPN for nutritional support at a rate of 90 cc an hour. Fluid balance is +1.3 L over the past 24 hours. The patient is receiving Dilaudid for pain control. While off Dilaudid, he developed hypertension and overnight the patient was started on Cleviprex at 4 mg an hour. RAYA drain has produced around 40 cc over the past 24 hours. The J- tube is nonfunctional. The wound VAC is still in place. The blood work from today shows a white cell count of 10.6 and hemoglobin of 7.6 and a platelet count of 111. Renal function is normalized and the patient's BUN is 44 with a c reatinine of 0.9. Serum bicarb is at 19 with a chloride of 115 and a sodium level at 137. LFTs are normal with an alkaline phosphatase of 222. The sputum sample was positive for Citrobacter and Pseudomonas. The Pseudomonas aeruginosa was quite resistant and the patient is currently on a combination of ceftolozane and tazobactam. Afebrile. Hemodynamically stable. Cardiac rhythm is sinus. On 01/07/2024, the patient remains off sedation. Somewhat encephalopathic. Extremely weak, occasionally follows some simple commands. Unable to raise his arms against gravity. Continues to have respiratory secretions and coughing episodes specially once the effect of Dilaudid wears off. Remains on a mechanical ventilator. He was able to tolerate pressure support of 12 and a PEEP of 5 for a total of 4 hours yesterday. Overnight, the patient was kept on assist-control mode of mechanical ventilation this morning he is on assist- control of 20, tidal volume of 500, FiO2 of 30% with a PEEP of 5. The patient was placed back on pressure support mode of mechanical ventilation this is being done on a daily basis. Blood gas showed a pH of 7.44 with a pCO2 of 30 and pO2 100. Discussed the case with interventional radiology and the patient has a right lung abscess and the patient is going to have a pigtail catheter inserted today. Renal function is normal. TPN is running at a rate of 90 cc an hour. The J-tube is not being utilized at this point. Fluid balance is +149 cc over the past 24 hours. RAYA drain output is noted. Output is serosanguineous. Wound VAC is in place. The patient remains on Cleviprex at 2 mg an hour and the patient receiving hydralazine 10 mg for blood pressure control every 6 hours. He remains on a broad-spectrum antibiotic coverage and he is on ceftolozane tazobactamBlood work from today shows a WBC count of 11.4, hemoglobin of 7.4 and a platelet count of 145. BUN is 44 with a creatinine of 0.8 and sodium levels at 136 and potassium levels at 3.4. Glucose is 166. 01/08/2024, the patient is sedated on propofol and the patient is also paralyzed on Nimbex. Propofol during 50 mcg/kg/min and Nimbex at 4 mcg. The patient had to be sedated and paralyzed as the patient had frequent coughing spells to the point where the patient was unable to ventilate while being on the mechanical ventilator. Noted he had a pigtail catheter inserted yesterday. Pus was drained from his right hemithorax and a total amount of output is around 90 cc over the past 12 hours no purulent material and the patient has a positive airleak. The chest x-ray is still showing an area of consolidation which is quite extensive in the right lung with some improvement in the aeration of the right lung. Tracheostomy tube is in good location. A bronchoscopy was done. Unable to locate a bronchopleural fistula. Therapeutic airway suctioning was done. Respiratory secretions were suctioned out and sent for cultures. The right lung abscess was also sent for cultures. Currently on assist-control at rate of 20, tidal volume of 500, FiO2 of 30% with a PEEP of 5. Blood gas showed pH of 7.25 with a pCO2 of 50 and pO2 of 76. A white cell count of 17.3 with a hemoglobin 7.1 and a platelet count of 157. His sodium level is at 135, potassium levels at 3.4, bicarb is at 19 with a BUN of 45 with a creatinine of 0.8. Phosphorus is at 2.9, magnesium is at 1.8. Blood sugars of 208. He remains on ceftolozane/tazobactam. RAYA drain is still in place. Wound VAC is still in place. Receives TPN for nutritional support. The patient is not receiving enteral feeding. The J-tube is nonfunctional. 01/09/2024, the patient was taken off the paralytics and the patient was taken off the propofol this morning. He is calm and comfortable. Cough is less. Pigtail is draining total of 300 cc of purulent material since insertion and 220 cc over the past 24 hours. There is positive air leak. Chest x-ray remains unchanged. No pneumothorax. Tracheostomy tube is in good location. Patient is currently on assist-control mode rate of 20, tidal volume of 500, FiO2 30% with a PEEP of 5. Blood gas showed a pH of 7.4 with a pCO2 of 40 and pO2 of 75. The patient was given bicarb infusion overnight and the patient serum bicarb has improved. Remains on TPN for nutritional support at a rate of 90 cc an hour. The white cell count of 15.3 with a hemoglobin 7.3. The serum bicarb is at 24. Chloride is 111 and a potassium level is at 3.6 and a sodium levels at 137. Remains on ceftolozane/tazobactam. ID is on the case for further antibiotic modification. Most recent Pseudomonas that was cultured from the lungs was sensitive to quinolones. RAYA drain is in place. The J-tube is nonfunctional. The patient continues to be on TPN for nutritional support. Objective - Vital Signs Vital signs: Vital Signs Temp 97.9 F 01/09/24 08:00 Pulse 94 01/09/24 08:00 Resp 30 H 01/09/24 08:00 BP 126/78 01/09/24 06:00 Pulse Ox 96 01/09/24 08:00 FiO2 30 01/09/24 07:44 Intake & Output 01/08/24 01/09/24 01/09/24 18:59 06:59 18:59 Intake Total 3204.317 2340.213 471.108 Output Total 1345 1283 370 Balance 7573.659 2704.213 101.108 Weight 99 kg 104 kg Intake: IV 2686 2256 366 0.9 Normal Saline @ KVO 120 240 30 Ceftolozane/Tazobactam 3 200 gm In Sodium Chloride 0.9 % 100 ml @ 100 mls/hr IV Q8H [facility] Rx#:[id number] Dextrose 5% in Water 1, 750 900 150 000 ml @ 75 mls/hr IV . [id number] [facility] with Sodium Bicarb (1 Meq/ml) 150 ml Rx#:[id number] Magnesium 100 Normal Saline Pressure 36 36 6 Saline Potassium Chloride 10 meq 300 In Water For Injection 1 100ml.bag @ 100 mls/hr IVPB Q1H [facility] Rx#: [id number] Potassium Phosphate 10 100 mmol In Sodium Chloride 0 .9% 250 ml @ 125 mls/hr IV ONCE ONE Rx#:[id number] TPN 1080 1080 180 Intake, IV Titration 518.317 84.213 105.108 Amount Cisatracurium 200 mg In 196.449 Sodium Chloride 0.9% 180 ml @ 1 MCG/KG/MIN 5.838 mls/hr IV .Q24H [facility] Rx#: [id number] Magnesium Sulfate-D5w Pmx 100 1 gm In Dextrose/Water 1 100ml.bag @ 100 mls/hr IVPB [facility] Rx#: [id number] propofoL 1,000 mg In 321.868 84.213 5.108 Empty Bag 1 bag @ 15 MCG/ KG/MIN 8.757 mls/hr IV . [id number] [facility] Rx#:[id number] Output: Chest Tube Drainage 70 78 20 Chest Tube Right 70 78 20 Drainage 160 120 25 Right Abdomen 160 120 25 Urine 1115 1085 325 Other: Voiding Method Indwelling Catheter Indwelling Catheter ABP, PAP, CO, CI - Last Documented Arterial Blood Pressure 151/68 - Exam No acute distress, opening of his eyes, not responding to commands, off Nimbex and off propofol, on the mechanical ventilator. The patient has a tracheostomy tube in place. HEENT examination is grossly unremarkable. Mucous membranes are moist. No oral lesions.. The patient also has a tracheostomy tube in place and the patient has a #8 Shiley tracheostomy tube. Cardiac exam revealed the PMI to be normally situated and sized. The rhythm was regular and no extrasystoles were noted during several minutes of auscultation. The first and second heart sounds were normal and physiologic splitting of the second heart sound was noted. There were no murmurs, rubs, clicks, or gallops. The patient is in sinus tachycardia. Lungs reveal mild scattered rhonchi. No wheezes or crackles. Breath sounds equal. Diminished breath sound lung base bilaterally. Pigtail catheter in the right chest posteriorly located with positive output and positive airleak on the Pleur-evac. Abdomen distended without bowel sounds. J-tube is noted. Mid abdominal wound is covered with a wound VAC and a RAYA drain in place and output is serosanguineous. Extremities are intact. No cyanosis clubbing trace edema lower extremities bilaterally Skin is without rash or lesion. The wound at the Mediport site is dry and the area has been sutured and the site is clean for now. Neurologic examination is brief but nonfocal. Currently, the patient is still sedated while being off propofol. - Labs CBC & Chem 7: 01/09/24 04:35 01/09/24 04:35 Labs: Abnormal Lab Results - Last 24 Hours (Table) 01/08/24 01/08/24 01/08/24 Range/Units 11:47 17:34 23:55 WBC (3.8-10.6) k/uL RBC (4.30-5.90) m/uL Hgb (13.0-17.5) gm/dL Hct (39.0-53.0) % RDW (11.5-15.5) % Neutrophils # (1.3-7.7) k/uL ABG pO2 (83-108) mmHg ABG Total CO2 (19-24) mmol/L Hemoglobin (13.0-17.5) gm/dL Potassium 3.2 L (3.5-5.1) mmol/L Chloride (98-107) mmol/L BUN (9-20) mg/dL Glucose (74-99) mg/dL POC Glucose (mg/dL) 174 H 154 H (70-110) mg/dL Calcium (8.4-10.2) mg/dL 01/08/24 01/09/24 01/09/24 Range/Units 23:58 04:35 04:35 WBC 15.3 H (3.8-10.6) k/uL RBC 2.50 L (4.30-5.90) m/uL Hgb 7.3 L (13.0-17.5) gm/dL Hct 22.8 L (39.0-53.0) % RDW 18.4 H (11.5-15.5) % Neutrophils # 11.3 H (1.3-7.7) k/uL ABG pO2 (83-108) mmHg ABG Total CO2 (19-24) mmol/L Hemoglobin (13.0-17.5) gm/dL Potassium (3.5-5.1) mmol/L Chloride 111 H (98-107) mmol/L BUN 47 H (9-20) mg/dL Glucose 157 H (74-99) mg/dL POC Glucose (mg/dL) 179 H (70-110) mg/dL Calcium 7.3 L (8.4-10.2) mg/dL 01/09/24 01/09/24 Range/Units 05:00 05:15 WBC (3.8-10.6) k/uL RBC (4.30-5.90) m/uL Hgb (13.0-17.5) gm/dL Hct (39.0-53.0) % RDW (11.5-15.5) % Neutrophils # (1.3-7.7) k/uL ABG pO2 75 L (83-108) mmHg ABG Total CO2 27 H (19-24) mmol/L Hemoglobin 7.5 L (13.0-17.5) gm/dL Potassium (3.5-5.1) mmol/L Chloride (98-107) mmol/L BUN (9-20) mg/dL Glucose (74-99) mg/dL POC Glucose (mg/dL) 147 H (70-110) mg/dL Calcium (8.4-10.2) mg/dL Microbiology - Last 24 Hours (Table) 01/07/24 12:15 Gram Stain - Preliminary Pleural Fluid Body Fluid Culture - Preliminary 01/07/24 15:07 Gram Stain - Preliminary Sputum Sputum Culture - Preliminary Pseudomonas aeruginosa Assessment and Plan Plan: Acute hypoxemic respiratory failure with failure to wean from mechanical ve ntilation, S/P tracheostomy on December 10, 2023. The patient has bilateral pneumonia with a cavitary infiltrate in the right upper lobe, secondary to Pseudomonas aeruginosa and Citrobacter and the patient is currently on a combination of ceftolozane/tazobactam. CAT scan of the chest done on 12/17/2023 was reviewed and the patient has a cavitating cyst/abscess in the posterior aspect of the right upper lobe in addition to patchy opacities bilaterally right more than left consistent with pneumonia,/gram-negative pneumonia. The patient had a pigtail catheter inserted with drainage of the right lung abscess. Encountered significant amount of coughing, unable to ventilate and the patient based on that was placed on propofol and Nimbex for sedation and paralysis. Positive air leak through the pigtail catheter. Rule out bronchopleural fistula. Bronchoscopy was done yesterday, unable to identify a fistula. Therapeutic airway suctioning was done. Cultures were sent. The bronchial washing is positive for Pseudomonas aeruginosa, quinolone sensitive and the cultures from the pigtail catheter/lung abscess are still negative. Chest x-ray findings are essentially unchanged, stable consolidation of the right lung and the pigtail remains in good location. Hospital-acquired right lung pseudomonal/Klebsiella pneumonia. Patient is currently on IV ceftolozane/tazobactam. Chest x-ray from remains unchanged. Respiratory secretions are copious. The patient is having also frequent coug diana episodes. The patient is currently sedated and paralyzed to maintain adequate ventilation and oxygenation. Cough, subsided, continues to have respiratory secretions. Rule out underlying bronchopleural fistula. Bronchoscopy was completed. 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 Small bowel perforation with abdominal contamination. The patient is status post expiratory laparotomy and small bowel resection and insertion of another jejunostomy tube. The patient jejunostomy is not functional and remains clogged and this was unclogged yesterday. Nevertheless, the tube itself is still malfunctioning. However, the abdominal wound is dehisced and is infected. RAYA drain output is serosanguineous. A wound VAC was applied to the anterior a bdominal wall. Peritonitis secondary to above, recovered Septic shock secondary to above, the patient is currently off pressors Atrial fibrillation with rapid medical response, currently back into normal sinus rhythm . Acute kidney injury, off hemodialysis and renal function has normalized History of acute aspiration during upper endoscopy most likely secondary to gastric outlet obstruction secondary to non-Hodgkin's lymphoma. weight loss most likely secondary non-Hodgkin's lymphoma involving the stomach. 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 Malfunctioning of the J-tube, currently on TPN for nutritional support Hypertension Plan Continue ventilator support. Paralytics have been discontinued and will continue holding the propofol for now. Bronchoscopy was done, unable to find a fistula although the possibility of bronchopleural fistula cannot be completely ruled out as the patient continues to have purulent secretions and frequent coughing episodes. He does have a positive air leak in his pigtail catheter. Cultures from the right lung abscess and sputum was sent and the sputum sample was positive for Pseudomonas aeruginosa, quinolone sensitive. Continue IV ceftolozane/tazobactam The J-tube needs to be readdressed. It is nonfunctional and the patient is on TPN for nutritional support IV fluids to KVO Monitor fever pattern General Surgery is on the case regarding abdominal wound Continue hydralazine and the patient is off Cleviprex Condition remains extremely critical with poor prognosis based on the above Will continue to follow this patient along with the rest of the consultants. Condition is critical over the poor outcome based on the above. Evaluation was done more than 30 minutes. Time with Patient: Greater than 30
[2024-01-09] MEDS: CIPROFLOXACIN/DEXTROSE PMX 400 MG in DEXTROSE/WATER 1 200ML.BAG IVPB SCH ×2 (13:32→22:27)
[2024-01-09] MEDS: FAT EMULSION 20% 250 ML in EMPTY BAG 1 BAG IV SCH (14:23)
[2024-01-09] MEDS: TOBRAMYCIN SULFATE IVPB SCH (14:42)
[2024-01-09] MEDS: SODIUM CHLORIDE 0.9% IVPB SCH (14:42)
--- NOTE | 2024-01-09 15:00 | P.PN ---
Progress Note - Text Progress Note Date: 01/09/24 Chief Complaint: On the ventilator This is a 73-year-old patient, follows with Dr. Patricia Deal. Patient was seen this morning in the ICU. Patient's and daughter at the bedside. History obtained predominantly by the . Patient been having trouble with his stomach symptoms for close to 8 months. Patient underwent EGD by Dr. Sahara Cheng yesterday. Patient was found to have ulcerated around the antrum and obstruction to the pylorus. A lot of retained food was found. Patient aspirated. Had to be intubated and brought to the ICU. On a Levophed drip. FiO2 50 and a PEEP of 6. Patient had been losing weight lost about 25 pounds. Previously has a history of mitral valve prolapse. November 13: ICU. Patient remains on Precedex drip and propofol drip. Did not do well attempted extubation yesterday. Patient been off Levophed. NG tube to suction. Spoke to patient's and son at the bedside. Biopsy results awaited. Hemoglobin dropped to 6.9 this morning. Get a unit of blood. November 14: ICU. Up in a chair. Extubated yesterday. NG tube to suction. at the bedside. 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 Oncology was consulted. They have ordered a port. Results discussed with Dr. Sahara Cheng. General surgery was consulted for J-tube placement. Discussed with at the bedside. Patient getting IV fluids, IV Zosyn,. Patient has been on IV amiodarone for A-fib-back in sinus rhythm. Multiple PACs. Did receive unit of blood yesterday. Also IV ferric gluconate. November 15: ICU. Patient earlier today underwent jejunostomy tube placement and a port placement. Patient awake. Answering questions. NG tube to suction present. Updated patient's . Patient remains on IV amiodarone and IV Zosyn. November 16: ICU. Up in the chair. NG tube present but not to suction. Trickle feeding through the jejunostomy tube should be started today. Dietitian has been on board. IV Zosyn to continue. Patient's and his sister at the bedside. Discussed. Also spoke with Dr. Serna. Given patient has no other predisposing cardiac factors for the A-fib except acute illness. His LV function is normal. Left atrium is normal. He has already been loaded with IV amiodarone. Will switch him to oral Lopressor 12.5 twice daily. Hence will DC amiodarone. Patient yesterday had wheezing was put on bronchodilators steroids per pulmonary. November 17: Propped up in bed. NG tube was discontinued. Sinus rhythm. Remains NPO. Getting G-tube feeding at 40 cc an hour. Dietitian following. Get arrangements done for DC home tomorrow including tube feeding. Increase activity discussed with patient and elder daughter at the bedside. Still requiring oxygen. Incentive spirometry. November 18: Patient up in recliner. Earlier today spoke to web content & social media manager David. Informed patient is rather weak and will be going to the [facility]. Looking at authorization. Denae came to the room and spoke to patient his and his daughter. They are very keen to take the patient home as 3 daughters all nurses and they will take care of him at home. Patient earlier today to abdominal cramping and some loose stools.'s tube feeding was held. Told the nurse to start back at the rate of 40 cc an hour. He was before the getting it at 55 cc an hour. Incentive spirometry was again emphasized. Patient remains on 4 L of oxygen. November 19: I saw the patient this morning. Hence I am in the evening. Morning was sitting with his sons. Has some edema. Lungs had crackles I gave him 40 mg of Lasix. He did make good urine. Tube feeding was held from the p revious evening of because of abdominal cramping. Acute abdominal series showed nonspecific bowel gas pattern and SBO to be ruled out. Family and patient was updated. Told him discharge will depend on day by day. Later this afternoon CT scanAnd abdomen pelvis done. Showed small bowel to be 3 point centimeter dilated. Some anasarca. Gastric findings. Gallstones. Later spoke to Dr. Irby from general surgery. They will further review and decide about further plan of action. Will give further dose of IV Lasix because of fluid overload from likely hypoalbuminemia and IV fluids previously received. Patient may take his pills by mouth. Total time spent today about 1 hour with over 40 minutes of discussion. Patient did state his breathing is better after Lasix this morning. November 20: Saw the patient this morning. was present. Patient received 2 more doses of Lasix. Diuresed well. Breathing much better. Lungs are sounding better. Discussed with Dr. Zepeda other surgeon. He is taking 3 cc out of the balloon and the gastrostomy tube. Started trickle feeding at 5 cc an hour. Will see how this does. Later in the day ran into the and the daughter again. Did update them on the same. Dilaudid was discontinued yesterday but morphine was ordered by surgery for patient having pain. Concerns about GI issues with that we will DC the morphine. As family does not want the same. November 21: Patient reclining bed. Tired. Several family members at the bedside. Including his and eldest daughter. Patient started on trickle feed yesterday at 5 cc an hour. This morning he has been on 10 cc an hour. Still having some loose stools. C. difficile was ordered. Patient on 2 L of nasal cannula. Has diuresed well. Will give an additional dose of Lasix today. If C. difficile is negative and the diarrhea is from the tube feedings we may have to use a fecal management system to keep him comfortable. Otherwise patient remains NPO. Dietitian is following the patient. Care was discussed length with patient the and daughter at the bedside. Questions answered. Liquid Tylenol has been added for abdominal pain. Avoid narcotics. Elevated white count likely from Solu-Medrol 11/23/2023--patient was feeling better today. Multiple family member at bedside. No issues overnight. Normal saline at 10 cc an hour, tube feeding at 20 cc an hour, remains on Zosyn, on 3 L oxygen. Afebrile. Heart rate 62, respiratory rate 16, blood pressure 114/67, saturating 91% on 3 L. WBCs 14.5, 9.7 hemoglobin. Platelet 242. BMP is unremarkable. Pulmonary and general surgery following. General surgery recommended to continue tube feeds at 20 cc/h. 11/24/2023--patient reported significant abdominal discomfort, also noted to have leak around G-tube. General surgery is following, evaluated the patient at bedside, adjusted tube feeds. Also reported having diarrhea, on 2 L oxygen, went up to 5 L. Blood pressure was low, 500 mL fluid bolus with close monitoring of respiratory status ordered. Currently on DuoNebs, Solu-Medrol, will continue Zosyn. Chest x-ray showed a left lower lobe infiltrate. Abdominal x-ray showed multiple air-fluid levels. CT abdomen showed multiple dilated small bowel loops, consistent with obstruction, pneumoperitoneum, cholelithiasis and ascites. WBCs 14.1, platelet 255, hemoglobin 8.9. NG tube in place. Family at bedside. patient transferred to SICU for close monitoring. 11/25/23--patient is currently in the ICU, required Levophed overnight due to low blood pressure, low urine output with creatinine trending up. Nephrology following. Instrument Maker And Repairer also following. Patient remains n.p.o., NG tube in place, following NG tube insertion patient had total of 2 L output, J-tube was draining approximately 200 cc over last 8 hours, continues to have abdominal pain and abdominal tenderness. Patient on IV fluids. Currently on 4 L oxygen. WBCs 8.2, hemoglobin 12.3, platelet 188. Chest x-ray earlier today showed right sided port and a stable left lung airspace disease, NG tube in place. Patient currently on Zosyn, on IV Dilaudid for pain control, on IV Solu-Medrol. General surgery planning for OR today, started on TPN. 11/26/23--patient was seen and examined today. Patient is currently sedated, intubated on mechanical ventilation. Family at bedside. Patient underwent ex lap, abdominal washout, small bowel resection with new feeding jejunostomy tube placement yesterday, small bowel was noted to be perforated with significant contamination of abdominal cavity. Patient is currently on vancomycin and Zosyn. Creatinine went up to 2.85, nephrology following, recommended to continue IV fluids, avoid nephrotoxin Preserved EF on echocardiogram.. Patient currently on Levophed, vasopressin in the ICU for close monitoring. Patient is afebrile, heart rate 122, blood pressure 129/76, currently on mechanical ventilation, sedated. November 26: ICU. Intubated. FiO2 60 and a PEEP of 5. Drips include IV amiodarone. Heart rate was up early did get fired microgram of IV digoxin and 2.5 mg of IV Lopressor. Did drop her blood pressure bit. Urine output was low. Received 80 mg of IV Lasix. Ahmet to 150 cc. Other drips include IV propofol, vasopressin, Levophed. TPN was started yesterday. Antibiotics include IV Zosyn and vancomycin. Patient has a J-tube to drainage to gravity. Spoke to patient's younger daughter and at the bedside. Prognosis guarded. Continue current treatment plan. Chest x-ray shows right lower lobe consolidation. Small pleural effusion. November 27: ICU. Intubated. FiO2 55 and a PEEP of 5. Antibiotics include IV vancomycin. Drips include Levophed at a small dose, IV vasopressin, propofol, amiodarone. Patient converted to sinus rhythm this morning. Getting TPN and normal saline at 75 cc an hour. Urine output about 25 cc an hour. RAYA drain put out about 260 cc last 12 hours that is last it auditor. NG tube with bilious output. And also GI J-tube output to gravity. Spoke to patient's and daughter at the bedside. They understand patient still not out of the kee. Platelets have dropped-therefore probably Zosyn stopped. November 28: ICU. Intubated. FiO2 55 and a PEEP of 5. Patient is in sinus rhythm. Seen this morning. Due for dialysis catheter this afternoon. Urine output about 15 to 20 cc an hour. Patient is on IV Lasix 80 mg every 12. Saline is KVO. Drips include IV propofol vasopressin. Patient having significant output through the RAYA drain and the jejunostomy tube to drainage. Creatinine had been getting worse. Patient's at the bedside. Understands patient's remains critically ill. Hemoglobin is down to 7. Given that patient's pain hypotensive, and on vasopressin we will give a unit of blood with dialysis. Getting TPN antibiotic changed to IV meropenem November 29: ICU. Intubated. FiO2 55 and a PEEP of 5. Remains in sinus rhythm. Getting TPN. Dialyzed yesterday and this morning. About 1000 cc removed. Urine output about 50 cc an hour. Patient is on IV propofol. Off vasopressin. Still having significant output through the RAYA drain and jejunostomy tube. Patient received a second unit of blood yesterday. Patient's and daughter at the bedside. I did discuss guarded prognosis. Did asked them to revisit CODE STATUS.. Getting IV meropenem. November 30: ICU. Intubated. Did get a sedation holiday t today. Back on propofol. Getting TPN. Still getting IV Lasix. Fair urine output. Jejunostomy tube in last 8 hours was about 30 cc output. RAYA drain in the 8 hours had about 180 cc output. Telemetry shows sinus rhythm. NG tube has low intermittent suction with negative output. On the vent with FiO2 40 and a PEEP of 5. No hemodialysis today. Discussed with the and eldest daughter at the bedside. IV meropenem-patient's sputum had grown Citrobacter freundii and Pseudomonas aeruginosa. December 01: ICU. Intubated. Jejunostomy tube to gravity. Only 10 cc output in last 24 hours. RAYA drain. About 190 cc last 6 hours. Nasogastric tube to low intermittent suction. Minimal output. Patient is on a small dose of propofol 5 mics. Telemetry shows sinus rhythm. Patient started on small dose of Cleviprex this morning. Blood pressure. Getting TPN. FiO2 35 and PEEP of 5. Discussed with the at the bedside. Hemodialysis today December 02: ICU. Patient remains intubated. FiO2 35 PEEP of 5. Patient is on IV propofol. IV Cleviprex was discontinued yesterday. Also remains on TPN. Telemetry shows sinus rhythm. NG tube is good no output. Still significant output through the RAYA drain. Jejunostomy tube has minimal output. Patient had hemodialysis today 2 L of fluid was removed. Oral half liters yesterday. Patient getting a sedation holiday. General Surgery started the patient on trickle feeding at 10 cc an hour. I did speak to patient's at the bedside. Prognosis remains guarded but there is some improvement. December 03: ICU. Intubated. FiO2 35 PEEP of 5. Drips include IV propofol and Precedex. Getting TPN. Telemetry shows sinus rhythm. Remains on IV Lasix 80 mg twice a day. IV meropenem. Because patient gets easily agitated when transitioning off propofol he has been switched over to Precedex. For hemodialysis today. December 04: ICU. Intubated. FiO2 35 and a PEEP of 5. Patient been taken off propofol is on Precedex. Telemetry sinus rhythm. J-tube with minimal output. RAYA drain with decreased output. NG tube to suction minimal output. Family wanted to hold off trickle feeding until cleared by oncology. Which he did today. Trickle feeding will be started today. Spoke to patient's and one of the daughters at the bedside. Dr. Russ is spoken to the earlier this point they want to do further tracheostomy tube. October 4: ICU. Intubated. FiO2 35 PEEP of 5. Patient remains on Precedex and PPN. Patient's dialysis catheter was not functioning is getting another [address] Bobby this afternoon. Remains on IV meropenem. Has a RAYA drain in the jejunostomy tube to gravity. NG tube to low intermittent suction. No family at the bedside. December 06: ICU. Intubated. FiO2 35 PEEP of 5. RAYA drain putting out about approximately 120 cc per shift. Patient on IV Precedex. FiO2 35 PEEP of 5. Telemetry-sinus rhythm. Patient occasionally been put on small dose of Levophed specially for hemodialysis getting it today. Also started on midodrine for low blood pressure. Tolerating tube feeding at 10 cc an hour. Also had a bowel movement. Mentation has not improved. Even with sedation holiday. Neurology consulted. CT brain shows no acute process. December 07: ICU. Intubated. FiO2 35 PEEP of 5. Telemetry-sinus rhythm. NG tube to suction low intermittent minimal output. Getting TPN. Tube feeding at 20 cc an hour. RAYA drain averaging over 100 cc per shift. Remains on Precedex. EEG was done today. Discussed with at the bedside. Family is currently not inclined for tracheostomy tube today. Day 13 of being intubated December 08: ICU. Intubated. FiO2 35 PEEP of 5. Patient is put on back on propofol per commercial loan collection officer Dr. JIMENEZ. EEG did show some potential for spikes was put on Keppra by neurology. Telemetry shows sinus rhythm. NG tube to suction with no output. Tube feeding was put on hold because of questionable discharge on the site. Being restarted today. RAYA drain is 150 cc last 12-hour shift. Patient does open eyes. Family has decided to proceed with tracheostomy and surgery has been consulted for the same. Spoke to the at the bedside. For hemodialysis today. December 09: ICU. Intubated FiO2 35 PEEP of 5. Patient seen this morning. Pending tracheostomy placement this afternoon. Remains NPO. G-tube feeding was held overnight. RAYA drain putting out about 100 cc per shift. Received a unit of blood for hemoglobin of 6.6. On 25 mics of propofol. Getting TPN and meropenem. Spoke to the at the bedside. Patient became hypotensive with dialysis yesterday. Levophed had to be given. Only 800 cc were removed yesterday. No hemodialysis today. December 10: ICU . FiO2 35, PEEP 5. Tracheostomy was done yesterday by Dr. Ewing. G-tube feeding was started today at 10 cc an hour. Dietitian following. RAYA drain 12-hour shift overnight put out about 30 cc. Patient hemodialysis today about 1 L removed. Patient has a sacral stage II decub with a dressing. On propofol 20 mics. Spoke to at the bedside. TPN. Meropenem was discontinued yesterday. December 11: ICU. FiO2 35 PEEP of 5. Tracheostomy. NG tube was discontinued. No hemodialysis today. Telemetry shows sinus rhythm. J-tube feeding at 40 cc an hour. TPN was discontinued. Patient has been off propofol also. PICC line in place. Patient had a EEG done today. Spoke to patient's elder daughter at the bedside. May open eyes occasionally. Not really following commands December 12: 73-year-old white male with history of chronic abdominal pain for the last 8 months has been treated with Protonix 40 mg daily for the last 3 months with no improvement. Patient had a 22 pound weight loss in the last [address] of the abdomen and pelvis 3 weeks ago showed thickening of the antral wall with pathological adenopathy posterior to the stomach suspicious of neoplasm. Today the patient underwent elective upper endoscopy to evaluate further, patient received IV sedation by anesthesia endoscope was inserted into the mouth, esophagus was intubated without any difficulty there was evidence of large amount of liquid and solid food noted in the stomach suggestive of gastric outlet obstruction. Scope could not be advanced through the pylorus, however in the prepyloric area there was a large superficial ulceration identified with multiple biopsies were done from this area. The body cardia and fundus could not adequately visualize because of large amount of retained food in the s tomach. Scope was withdrawn back to the stomach and upon careful examination the mucosa of the antrum body and cardia as well as the fundus appeared normal. Procedure was being performed and biopsies were done patient threw up and subsequently became hypoxic there was clearly evidence of witnessed aspiration anesthesia intubated the patient, procedure was terminated, and the patient was transferred to the ICU, this consult was initiated. Patient is now on assist- control rate of 20 tidal volume 500 FiO2 70% PEEP of 10 ABG is pending, earlier ABG showed profound hypoxia patient is on propofol at 50 mcg/kg/min, next ABG is pending. Chest x-ray showed chronic changes without evidence of acute pulmonary disease. 12/14/2023 Patient remains in the ICU, generally weak Patient s/p tracheostomy G-tube in place Patient still has fever and mild tachycardia but tachycardia is improving, leukocytosis improving as well. Hemoglobin 8.1. Creatinine 3.0 and nephrology team on the case. He has mild transaminitis. He was getting Zosyn which is held now, nowCalcitonin is pending 12/14 Patient shon in the ICU, he is still encephalopathic and does not follow command. Neurology service following closely. He is status post tracheostomy. Also J-tube His abdomen looks soft and on exam he has mild coarse secretions. Has a Abarca catheter with clear urine His pro- Calcitonin is still high but trending down 3.0 down to 1.9 No fever this morning WBC slightly less at 16.3 Patient currently off antibiotic He is getting steroids IV Solu-Medrol which might contribute to his leukocytosis. Also he is on IV Keppra by neurologist 12/14 Patient remains confused in the ICU calm, he had a good night per family member and staff. Tracheostomy in place Patient has occasional coughing spells, patient also developed some partial wound dehiscence in his abdomen, surgery team are aware and are going to evaluate the patient Patient also has positive blood culture from 12/13: Gram-positive cocci in clusters. Patient received one-time dose of IV vancomycin. Patient also had fever 2 days ago, leukocytosis and total elevated pro- Calcitonin. Therefore we are going to consult infectious disease team. As his antibiotic Zosyn was stopped few days ago. Currently patient KVO He has good urine output December 16: ICU. Trach. Congested. Requiring suctioning. No hemodialysis today. Getting G-tube feeding at 50 cc an hour. FiO2 30 and a PEEP of 5. On IV Precedex. Eyes open. Does follow commands. Weakness in the limbs. Spoke to at the bedside. Sputum positive for Klebsiella oxytoca and Pseudomonas aeruginosa. December 17: ICU. On trach. Currently cough with increased secretions requiring suctioning. Adding scopolamine patch. Very much clear secretion. CT scan is showing right upper lobe lung abscess. G-tube feeding at 50 cc an hour. Hemodialysis today. RAYA drain putting out about 140 cc a shift. Serous. Has been midline incision wound dehiscence. Wound VAC was placed on it. Stage II ulcer. Patient is on Precedex drip 0.15 mics. Urine output is good about 6200 cc an hour. Spoke to the at the bedside. Patient currently not stable for transfer to LTAC. No limb movements. PT OT on the case. otherwise awake does follow simple commands by face December 18: ICU. Patient seen this afternoon. Because of pain getting IV Dilaudid. No nasal cannula on room air. Does move about his head. Telemetry shows sinus rhythm. FiO2 30 and a PEEP of 5. Patient started on scopolamine patch yesterday has decreased secretions today. Good urine output. Tube feeding at 60 cc an hour. Wound VAC on incisional would be high since in place. RAYA drain continues to make output. No hemodialysis today December 19: ICU. Patient was seen earlier today. FiO2 30 and a PEEP of 5. Sinus rhythm. Awake. Does follow with eyes. Tube feeding got obstructed tube feedings held for now. Increasing oozing from the incision drainage site. at the bedside. Wound VAC remains in place. Good urine output. Dialysis held today. December 20: ICU. Per nephrology no dialysis today. 1 L fluid bolus given. J- tube was replaced over the wire by Dr. Ewing from surgery. On Precedex 0.6 mcg. FiO2 30 and a PEEP of 5 on the vent. RAYA drain putting out of around 100 cc per shift. at the bedside. Drainage through the abdominal incision wound. CT scan abdomen showed tube placement in the small bowel. Stable large right lower quadrant mass with a fluid level. December 21: ICU. No dialysis today. Patient started on trickle feeding through the J-tube yesterday. He started leaking around the J-tube site. Tube feeding was held. Dressings were placed. Wound VAC remains on the incision. Still having output through the RAYA drain. Patient remains on Precedex 0.4 mcg. FiO2 30 and a PEEP of 5. Sinus rhythm. at the bedside. December 22: ICU. Patient was seen this morning today by me. No dialysis today. Patient's and daughter at the bedside. FiO2 30 and a PEEP of 5. Sinus rhythm. Still having significant secretions through the tracheostomy tube. On Precedex 0.4 mcg. Getting D5W IV fluids. Tube feeding remains to be on hold since yesterday. Still output of RAYA drain. Awaiting input from surgery. Discussed with the and daughter. December 23: ICU. Saw the patient this afternoon. Because of good output of urine dialysis has been discontinued. Telemetry shows sinus rhythm. FiO2 30 and a PEEP of 5. RAYA output has been around 8200 cc an hour. Good urine output. Patient does have very slight movement of the limbs. Wound VAC is putting out about 20 cc per shift. Yesterday when trickle feeding was started patient's J- tube drainage also started leaking around the insertion site. Tube feeding was held. Patient remains on IV Zosyn and Precedex at 0.3 mcg. I had a very lengthy discussion with patient's daughter and at the bedside overall guarded prognosis. Later surgery spoke to the family, and then the nurse called me that family was wanting transferred to [facility]. I spoke to Dr. Irby. They felt they could not offer anything more at this point. I did call the [facility] transfer food service team member. Gave them the reason for transfer. Later in the ICU nurse informed me through [employer] that [facility] had declined the transfer. Total time spent today about 50 minutes with over 30 minutes of discussion. December 24: ICU. Patient is doing not too well. Sinus rhythm. Drips include norepinephrine and IV propofol. Surgery did put 2 stitches around the J-tube insertion site. Started on TPN today. FiO2 30 PEEP of 5. Patient became hypothermic put on a Manjit hugger. Also hypoglycemic. Decreased urine output. IV fluids increased. Patient's son was at the bedside. I did speak to patient's eldest daughter outside in the waiting room. Did tell the patient doing very poorly. I did try to call the on the phone number she has gone home. Started an IV antifungal today. December 26, 2023 73-year-old white male with history of chronic abdominal pain for the last 8 months has been treated with Protonix 40 mg daily for the last 3 months with no improvement. Patient had a 22 pound weight loss in the last [address] of the abdomen and pelvis 3 weeks ago showed thickening of the antral wall with pathological adenopathy posterior to the stomach suspicious of neoplasm. Today the patient underwent elective upper endoscopy to evaluate further, patient received IV sedation by anesthesia endoscope was inserted into the mouth, esophagus was intubated without any difficulty there was evidence of large amount of liquid and solid food noted in the stomach suggestive of gastric outlet obstruction. Scope could not be advanced through the pylorus, however in the prepyloric area there was a large superficial ulceration identified with multiple biopsies were done from this area. The body cardia and fundus could not adequately visualize because of large amount of retained food in the stomach. Scope was withdrawn back to the stomach and upon careful examination the mucosa of the antrum body and cardia as well as the fundus appeared normal. Procedure was being performed and biopsies were done patient threw up and subsequently became hypoxic there was clearly evidence of witnessed aspiration anesthesia intubated the patient, procedure was terminated, and the patient was transferred to the ICU, this consult was initiated. Patient is now on assist- control rate of 20 tidal volume 500 FiO2 70% PEEP of 10 ABG is pending, earlier ABG showed profound hypoxia patient is on propofol at 50 mcg/kg/min, next ABG is pending. Chest x-ray showed chronic changes without evidence of acute pulmonary disease. 12/27/2023 Patient is seen and evaluated with family at bedside; remains in the ICU intubated and mechanically ventilated. - ABG showed a pO2 of 99 pCO2 31 pH of 7.44. -- Remains on Eraxis daptomycin and Zosyn patient is intermittently requiring Dilaudid, Ativan does not seem to help his agitation and restlessness. -- Continues to have leakage around the jejunostomy tube, and patient is undergoing the J-tube exchange today. Family is at bedside, seems to be quite anxious about his overall condition, and I explained to the that we are doing the best we can considering his critical illness situation and critical illness polyneuropathy. Patient is profoundly weak, and weaning the patient from mechanical ventilation is almost impossible. At least not at this point yet WBC count is 10.9 hemoglobin is 8.1 basic metabolic profile is normal BUN is 46 creatinine 1.90 patient has been off hemodialysis since the . Chest x- ray continues to show stable findings with right upper lobe opacity and right lower lobe opacity and possibly a small right-sided pleural effusion ----Continue ventilatory support, now on IMV mode rate of 16 with pressure support of 14 Continue Precedex and use Dilaudid 0.5 mg every 2-3 hours as needed. Nutritional support patient is now on TPN, Possible J-tube changed today for J- tube malfunction Continue antibiotics including daptomycin and Zosyn, Eraxis was added by infectious disease 12/28/2023 the patient is seen and evaluated in room at bedside; continues to be afebrile, the patient is on the ventilator through the trach FiO2 is currently stable at 30% no significant pleural effusion clinically patient on requiring any pressor support still having drainage around his jejunostomy tube patient dialysis catheter has been discontinued. Patient white count normalized to 7.6, creatinine is 1.51 patient with pneumonia with a sputum showing Citrobacter and Pseudomonas aeruginosa, the patient sputum repeat is still growing Citrobacter and Pseudomonas sensitive to the Pseudomonas is pending continue with Zosyn -patient did have a positive blood culture with staph epi that was oxacillin resistant as the patient did have a PICC line and the dialysis catheter he is on daptomycin repeat blood culture currently growing oxacillin sensitive staph epi, the patient dialysis catheter has been discontinued Has been sent for the culture -patient also have significant excoriation around his jejunostomy tube site which is still leaking Eraxis was added which will be continued as the patient fever pattern has improved and the patient white count has normalized once again discussed with the nursing staff to apply Triad cream which was discussed yesterday but not applied and monitor clinical course closely 12/29/2023 Patient is seen and evaluated with family members at bedside; remains intubated and mechanically ventilated -- ABG showed a pO2 of 105 pCO2 31 pH of 7.45. Remains on Precedex; multiple antibiotics and antifungal including Eraxis daptomycin and Zosyn. -- chest x-ray is showing improvement in his right upper lobe airspace disease/pulmonary abscess. Right lower lobe seems about the same with chronic opacity and possibly some small right-sided pleural effusion. --Family is at bedside, patient is arousable but does not follow any instructions. Gets extremely restless and agitated easily hence patient is receiving Dilaudid which seems to be working much better for this patient than benzodiazepines --possibly transfer the patient to a select care specialty. 12/30/2023 Evaluated in follow-up in the intensive care unit. He remains on the mechanical ventilator. Status post tracheostomy. There has been a decrease in the amount of leakage around the J-tube site he continues on a gravity flow. TPN is infusing tube feedings remain on hold at this time. No bowel movement reported for the last 5 days. X-ray today reveals extensive pleural parenchymal opacities throughout the right with at least a moderate pleural effusion. Mild patchy densities left mid and lower lung are also similar. Blood work reveals a white blood cell count 11.5, hemoglobin 8.1, platelet count of 78, sodium 142, potassium 4.2, BUN of 42, creatinine of 1.22, Phos of 2.3, magnesium 1.9. Patient continues on IV anidulafungin IV Zerbaxa IV daptomycin. Patient is currently sedated with propofol and also Precedex which is currently on hold at this time. December 31, 2023: ICU. Patient continues to do poorly. On propofol 35 mics. Also getting IV Dilaudid and IV Ativan.. Telemetry shows sinus rhythm. J-tube feeding has been discontinued. Significant output through the Abarca bag and around the G-tube site. Patient also putting out through the RAYA drain on the right side. Getting TPN and lipids. Patient is antimicrobial include iv aniedulefungin, IV ceftolozane/tazobactam, IV daptomycin Advance care planning [October 31, 2023] I met with patient's at the bedside. Went through in detail with patient is overall very poor clinical status. Chances of any meaningful recovery next to minimal. I also did mention that patient in my opinion was not stable to go to chronic ventilator setting. I suggested comfort care/hospice. I did not feel and why all honesty that patient is benefiting any further from the treatment we are giving him in fact causing probably more suffering. I also spoke to patient's daughter outside in the waiting room. Total time spent about 50 minutes with over 30 minutes of discussion. Later I called Dr. Luther JIMENEZ the commercial loan collection officer after he received a text that family was expressing that some physician expressed he was doing better and giving hope. I spoke to nurse Lemos in the evening and she and Dr. JIMENEZ did go and talk to patient's family at the bedside later. January 01, 2024: ICU. FiO2 30 and a PEEP of 5. Continues to have increased drainage at the G-tube site. Wound VAC in place over the incision. RAYA drain continues to put out excretions. Good urine output. Drips include IV propofol at 20 mics, also getting IV Ativan and Dilaudid. Patient also keeping getting TPN lipids. Spoke to the patient's at the bedside. No further questions. I did speak to Dr. Irby from general surgery. Hence it is both our impression again that changing the tube will not make any difference to the bigger picture. And probably futile. Dr. Irby will be speaking to the family today. David from web content & social media manager did ask about of family meeting. I did reiterate that I spoken at length to the a few times and also the daughter. Dr. Jimenez also spoke to the and Dr. Irby will be speaking with the today. Prognosis remains to be very poor. I did tell the in my opinion probably the patient is not r a candidate for long-term facility. Will commercial loan collection officer Dr. Jimenez determine if the patient is a candidate for long-term chronic ventilator facility. January 02, 2024: ICU. FiO2 30 PEEP of 5. Telemetry sinus rhythm. Drips include propofol at 20 mics. Patient getting TPN lipids. Receiving 1 unit of packed red blood cell. Patient was having a breakdown around the tracheostomy stoma site. With a cuff leak. G-tube site is continues to have increasing output. Wound VAC in place. RAYA drains also having increasing output. Patient sister and daughter from [place] from out of town. Earlier they spoke at length with Dr. alford from general surgery. Prognosis remains poor. January 03, 2024: ICU. FiO2 30 PEEP of 5. On propofol. 50 mics. Getting TPN lipids. Sinus rhythm. Wound VAC in place. Drainage around the j-tube site. RAYA drain continues to drain. Patient somewhat sedated. at the bedside. Later web content & social media manager David inform me that the surgical team Dr. Irby has suggested possible you have [facility], to which family is trying to obtain transferred to. Per Dr. Jimenez note patient has been decline by long-term care twice. Prognosis remains poor. at the bedside. Had no questions. Brother Nathan is present. January 04, 2024: ICU. FiO2 30 PEEP of 5. Propofol was held this morning. Getting TPN lipids. Sinus rhythm. Wound VAC remains in place. Continues to have drainage around the J-tube. RAYA drain continues to have output. at the bedside. She had no questions. Antibiotics in place. January 05, 2024: ICU. FiO2 30 PEEP of 5. Audibly sounding congested. Getting TPN lipids. Sinus rhythm. Wound VAC in place. Drainage around J-tube site. RAYA output continues. No family at bedside. Getting antibiotics. Lethargic January 06, 2024: ICU. FiO2 30 PEEP of 5. Patient is been off propofol since yesterday. Does move his head about. Try to open his eyes sometimes. Sinus rhythm. Blood pressure is running high yesterday. Started on Cleviprex. Hydralazine is being added. Continue to get TPN lipids. J-tube site remains excoriated. Wound VAC in place. RAYA output about 40 to 50 cc is a 12-hour shift. Patient elder daughter at the bedside. Eraxis was discontinued on January 02. Daptomycin is being discontinued by ID. Continue ceftolo'szone. CT abdomen pelvis done today: 3.1 cm organized fluid collection within the rectovesicular space concerning for abscess. No change in right upper lung 4.9 cm fluid collection with a fluid level. For possible pulmonary abscess. Moderate size right lung base multiloculated hydropneumothorax possibly abscess. Additional areas of air bronchograms. January 07, 2024: ICU. FiO2 30 PEEP of 5. Patient was taken down for pigtail drainage of the right lung abscess. About 200 cc of pus was obtained. Nurse informed me when they told him about for the procedure a lot of pus gushed out from the tracheostomy site. Dr. Love at the bedside did a bronchoscopy. Some pus was aspirated. No obvious fistula was noted. Patient is being back on Cleviprex drip. TPN lipids. January 08, 2024: ICU. Patient was having severe bouts of coughing. Unable to maintain ventilation. Patient was put on Nimbex drip and propofol drip. TPN lipids continue. Has a right chest wall pigtail catheter 90 cc output in 12- hour shift. Drainage from around the J-tube site. RAYA drain continues Ahmet to have an output. Abdominal wound is high since with the wound VAC in place. Patient sedated. January 09, 2024: ICU. Patient is off propofol and Cleviprex. Does open eyes. RAYA drain. About 40 cc last 24 hours. J-tube site continues to have increased output. Requiring dressing change every so often. Wound VAC in place. Patient getting Dilaudid and Ativan. Telemetry shows sinus rhythm. 40 cc out of the pigtail drainage. Patient started on ciprofloxacin and tobramycin. Remains on TPN and lipids. Patient's eldest daughter and at the bedside. No new questions. Active Medications Acetaminophen (Acetaminophen Suppository 650 Mg Supp) 650 mg RECTAL Q6HR PRN PRN Reason: Fever Albuterol/Ipratropium (Ipratropium-Albuterol 3 Ml Neb) 3 ml INHALATION RT-QID [facility] Last Admin: 01/09/24 10:46 Dose: 3 ml Albuterol/Ipratropium (Ipratropium-Albuterol 3 Ml Neb) 3 ml INHALATION RT-Q2H PRN PRN Reason: Shortness Of Breath Or Wheezing Last Admin: 01/08/24 04:01 Dose: 3 ml Bisacodyl (Bisacodyl 10 Mg Supp) 10 mg RECTAL DAILY [facility] Last Admin: 01/09/24 09:56 Dose: 10 mg Chlorhexidine Gluconate (Chlorhexidine Gluconate 15 Ml Cup) 15 ml MUCOUS MEM BID [facility] Last Admin: 01/09/24 09:56 Dose: 15 ml Darbepoetin Scooby (Darbepoetin Scooby 40 Mcg/0.4 Ml Syringe) 40 mcg SQ Q7D [facility] Last Admin: 01/07/24 08:36 Dose: 40 mcg Dextrose/Water (Dextrose 50% Syringe 50 Ml) 25 ml IVP PER PROTOCOL PRN; Protocol PRN Reason: Hypoglycemia Last Admin: 01/03/24 06:18 Dose: 25 ml Dextrose/Water (Dextrose 50% Syringe 50 Ml) 50 ml IVP PER PROTOCOL PRN; Protocol PRN Reason: Hypoglycemia Last Admin: 12/25/23 18:03 Dose: 50 ml Hydralazine HCl (Hydralazine Hcl 20 Mg/Ml 1 Ml Vial) 10 mg IVP Q6HR PRN PRN Reason: SBP >140 Last Admin: 01/07/24 23:28 Dose: 10 mg Hydromorphone HCl (Hydromorphone 2 Mg/Ml 1 Ml Syringe) 1.5 mg IVP Q4H [facility] Last Admin: 01/09/24 12:03 Dose: 1.5 mg Clevidipine 25 mg/ IV Solution 50 mls @ 2 mls/hr IV .Q24H [facility]; Protocol Last Titration: 01/07/24 21:36 Dose: 0 mg/hr, 0 mls/hr Propofol 1,000 mg/ IV Solution 100 mls @ 8.757 mls/hr IV .[id number] [facility]; Protocol Last Titration: 01/09/24 08:00 Dose: 0 mcg/kg/min, 0 mls/hr Cisatracurium Besylate 200 mg/ (Sodium Chloride) 200 mls @ 5.838 mls/hr IV .Q24H [facility]; Protocol Last Titration: 01/08/24 12:53 Dose: 0 mcg/kg/min, 0 mls/hr Ciprofloxacin/Dextrose 400 mg/ (IV Solution) 200 mls @ 200 mls/hr IVPB Q12HR [facility] Stop: 01/09/24 15:00 Last Admin: 01/09/24 13:32 Dose: 200 mls/hr Tobramycin Sulfate 600 mg/ (Sodium Chloride) 115 mls @ 115 mls/hr IVPB Q24H [facility] Last Admin: 01/09/24 14:42 Dose: 115 mls/hr Fat Emulsion Intravenous 250 (ml/ IV Solution) 250 mls @ 21 mls/hr IV [id number] [facility] Last Admin: 01/09/24 14:23 Dose: 21 mls/hr Parenteral Vitamin Supplement 10 ml/ Zinc/Copper/Manganese/Selenium 1 ml/ Sodium Acetate 48 meq/ Magnesium Sulfate 1.5 gm/ Calcium Gluconate 1 gm/Potassium Phosphate 18 mmol/Potassium Acetate 20 meq/Amino Acids/Dextrose 2,064 mls @ 90 mls/hr IV .[id number] [facility] Ciprofloxacin/Dextrose 400 mg/ (IV Solution) 200 mls @ 200 mls/hr IVPB Q8H [facility] Insulin Aspart (Insulin Aspart (Novolog) 100 Unit/Ml Vial) 0 unit SQ 0 000,0600,1200,1800 [facility]; Protocol Last Admin: 01/09/24 11:59 Dose: 2 unit Levetiracetam (Levetiracetam Iv 500 Mg/5 Ml Vial) 250 mg IVP Q24HR [facility] Last Admin: 01/09/24 09:56 Dose: 250 mg Lorazepam (Lorazepam 2 Mg/Ml Inj) 1 mg IV Q6HR PRN PRN Reason: Agitation Last Admin: 01/09/24 13:46 Dose: 1 mg Miscellaneous Information (Potassium Replacement Protocol 1 Each Misc) 1 each MISCELLANE DAILY PRN; Protocol PRN Reason: Per Protocol Miscellaneous Information (Magnesium Replacement Protocol 1 Each Misc) 1 each MISCELLANE DAILY PRN; Protocol PRN Reason: Per Protocol Multi-Ingred Cream/Lotion/Oil/Oint (Hydrophilic Cream 180 Gm Tube) 1 applic TOPICAL BID NIRMAL; Protocol Last Admin: 01/09/24 09:57 Dose: 1 applic Multi-Ingredient Ointment (Zinc Oxide 20% Oint 28.4 Gm Tube) 1 applic TOPICAL BID PRN; Protocol PRN Reason: Skin Irritation Naloxone HCl (Naloxone 0.4 Mg/Ml 1 Ml Vial) 0.2 mg IV Q2M PRN PRN Reason: Opioid Reversal Pantoprazole Sodium (Pantoprazole 40 Mg/10 Ml Vial) 40 mg IVP BID NIRMAL Last Admin: 01/09/24 09:56 Dose: 40 mg Petrolatum (Zinc Oxide Paste (Z-Guard) 1 Applic) 1 applic TOPICAL BID NIRMAL; Protocol Last Admin: 01/09/24 09:57 Dose: 1 applic Past medical history to include: GERD Social history: . No smoking. Physical examination: VITAL SIGNS: 97.6, 96, 18, 132 x 94, 96% on the ventilator GENERAL: Does open eyes getting TPN and lipids EYES: Pupils equal. Conjunctiva edouard l. HEENT: External appearance of nose and ears normal, tracheostomy-. NECK: JVD unable to assess; masses not palpable. HEART: First and second heart sounds are normal; edema, present LUNGS: Respiratory rate increased, decreased breath sounds right chest wall pigtail catheter ABDOMEN: Soft, some tenderness. Liver spleen not palpable, no masses palpable..jejunostomy tube-dressing in place, . RAYA drain. Incision with stitches with - wound VAC PSYCH: Unable to assess NEURO: Eyes open. No movement in the limbs INVESTIGATIONS, reviewed in the clinical context: January 08: White count 15.3 hemoglobin 7.3 platelets 176 potassium 3.6 creatinine 0.89 January 06: White count 11.4 hemoglobin 7.4 potassium 3[address] abdomen pelvis [January 05]: 3.1 cm organized fluid collection within the rectovesicular space concerning for abscess. No change in right upper lung 4.9 cm fluid collection with a fluid level. For possible pulmonary abscess. Moderate size right lung base multiloculated hydropneumothorax possibly abscess. Additional areas of air bronchograms. January 05: White count 10.6 hemoglobin 7.6 platelets 111 sodium 137 potassium 3.5 BUN 44 creatinine 0.95 January 03: White count 13.4 hemoglobin 8.1 platelets 95 potassium 5.2 creatinine 1.1 albumin 1.8 Sputum culture [December 24] Citrobacter freundii, Pseudomonas aeruginosa Blood culture [December 24] Staphylococcus pettenkoferi December 24: White count 1.5 hemoglobin 8.2 platelets 106 potassium 3.8 BUN [address] chest abdomen without contrast [December 16] right upper lung cavitary lesion with air-fluid level in the posterior aspect and a larger cavitary lesion possibly within the lung parenchyma itself. Extending down towards the diaphragm additional airspace opacities in the left lung base. December 09: White count 26.1 hemoglobin 8.6 platelets 154 potassium 4.1 BUN 86 creatinine 3.31. Hemoglobin this morning was 6.6 prior to transfusion EEG-evidence of generalized cerebral dysfunction and sporadic intermittent higher amplitude sharply contoured waves mainly bifrontal. Showing cortical irritability. 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 Serosal fibrous adhesions. Viable margins. Sputum culture: [November 25]: Citrobacter freundii. Pseudomonas aeruginosa November 20: White count 14.4 hemoglobin 8.8 platelets 229 potassium 4.1 BUN [address] scan abdomen [November 19] possible small bowel obstruction Stool: C. difficile negative November 15: WBC 13 hemoglobin 7.7 platelets 248 potassium 4.3 creatinine 0.87 2D echo: EF 55 to 60%. Kidneys bladder: Unremarkable November 13: White count 12 hemoglobin 6.9 platelets 276 potassium 4.4 creatinine 1.21 magnesium 1.8 iron 6 TIBC 365% saturation 1.64 transferrin 261 ferritin 34.6 B12 569 folate 4.4 November 11: Creatinine 0.86 EGD: Large amount of retained solid liquid food noted in the stomach. Large superficial gastric antral ulceration involving most of the antrum extending into the pylorus causing pyloric stenosis. Biopsies were obtained. Chest x-ray film personally reviewed by me-scattered infiltrates Assessment plan: -Aspiration and gram-negative bacterial pneumonia a bilateral initially from retained gastric contents mostly food and liquids, causing acute hypoxic respiratory failure: On presentation: Subsequent bacterial pneumonia sputum culture November 25: Citrobacter freundii, Pseudomonas aeruginosa. December 13: Klebsiella oxytoca, Pseudomonas aeruginosa IV meropenem-, IV Zosyn.IV ceftolozane/tazobactam, IV daptomycin-all discontinued Currently getting IV ciprofloxacin and tobramycin -Breakdown of tracheostomy stoma site. Dressing in place Being followed by commercial loan collection officer -Sepsis with septicemia from above Patient received multiple antibiotics -Right l lung abscess, pigtail catheter placed January 07, 2024. Initially about 200 cc of pus obtained. During the procedure large amount of pus poured out of the tracheostomy site when patient was rolled on the left side. Status post bronchoscopy with some lavage on 01/07/2024 - lung abscess larger 1 on the right side-patient cultures are growing Pseudomonas and Klebsiella oxytoca: Slow to respond , Received other antibiotics. Currently on Levaquin and tobramycin -Acute pulmonary edema and fluid overload from hypoalbuminemic state and fluids from IV.:: Has been getting Lasix and dialysis: Both held -Altered mentation. Possibly encephalopathy. Could be delirium.: Not improving CT brain [December 06] nothing acute Neurology following EEG-evidence of generalized cerebral dysfunction and sporadic intermittent higher amplitude sharply contoured waves mainly bifrontal. Showing cortical irritability. Keppra was started on December 07 -Critical care poly- Pedro neuropathy: Slow to respond PT OT -Gallstones, asymptomatic -Small l bowel perforation at site of jejunostomy tube tip with balloon..: Portion of small bowel resected. On November 24. New J-tube was placed.- drainage to gravity:-Now discontinued December 19: J-tube blocked. J-tube replaced on December 20 over wire December 21: Leaking around the J-tube site. Feeding held December 23: J feeding was started yesterday evening but again started leaking increasingly around the J-tube site-feeding held again December 24: J-tube feeding has been held. Patient is currently having increased drainage from the J-tube site -Acute kidney injury. Possible ATN from hypotensive shock: Resolved Renal ultrasound unremarkable. Started on renal replacement therapy on November 28. Last hemodialysis on December 17. Being followed by an nephrology. Good urine output. -Nutrition Jejunostomy tube placed November [address] Ewing Received TPN-this was discontinued. TPN lipids restarted on December 24 -Lung abscess, not improving Antibiotics to continue. Pulmonary and ID following -Midline abdominal incision wound dehiscence Wound VAC placed -Acute recurrent atrial fibrillation-converted to sinus rhythm Received IV amiodarone. Cardiology following Lopressor -Acute hypoxic respiratory failure from aspiration pneumonia, status post ventilator assisted: Reintubated November 25. FiO2 35 PEEP of 5 Tracheostomy tube-by Dr. Zepeda on December 09 -Septic shock, recovered -Hypertension, recurrent Had received Cleviprex. Hydralazine added -Intermittent hypotension: Corrected Intermittent use of Levophed. 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 Also anemia of blood draw. Iron deficiency anemia Received total of 6 units of blood IV iron. -Severe thrombocytopenia. Would consider coagulation disorder secondary to infection., In the setting of underlying lymphoma.: Fluctuating with infection Hematology following. -Acute blood loss anemia, -Sacral stage II decub ulcer Dressing in place -Hypokalemia, multiple causes -Hypoglycemia -GERD PPI -Acute diarrhea secondary to tube feeding.: Resolved C. difficile ruled out. -Large superficial gastric antral ulceration involving the gastric antrum extending into the pylorus with gastric outlet obstruction. 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 -Full code Patient off propofol, off Nimbex. IV ciprofloxacin and IV tobramycin. Not for tube feeding as per surgery. Prognosis remains guarded. Follow with multiple consultants. Past Medical History Past Medical History: GERD/Reflux History of Any Multi-Drug Resistant Organisms: None Reported Past Surgical History: Heart Catheterization Additional Past Surgical History / Comment(s): colonsocopy,spinal injection, Past Anesthesia/Blood Transfusion Reactions: No Reported Reaction Past Psychological History: No Psychological Hx Reported Smoking Status: Never smoker Past Alcohol Use History: None Reported Past Drug Use History: None Reported
--- NOTE | 2024-01-09 15:31 | P.PN ---
Subjective Progress Note Date: 01/09/24 Principal diagnosis: Reason for follow-up is pneumonia and bacteremia Patient is 73-year-old with male initial presentation to the hospital on 11/11/2021 for after the patient did have aspiration while undergoing elective endoscopy, diagnosed with a non-Hodgkin of, subsequently did have explained laparotomy for perforated small bowel abdominal washout and feeding jejunostomy tube patient did require dialysis catheter placement for dialysis during this hospital stay and tracheostomy for respiratory failure, infectious was consulted for fever. On today's evaluation that is 01/09/2024, the patient continues to be afebrile, the patient is on ventilator through the trach FiO2 is currently stable at 30% patient is hemodynamically stable not requiring any pressor support seen to be slightly waking up with open eyes but no other purposeful response. Patient white count is 15.3, creatinine 0.8 sputum is growing Pseudomonas aeruginosa that is resistant to Zerbaxa meropenem intermediate to cefepime and Zosyn Objective - Vital Signs Vital signs: Vital Signs Temp 97.9 F 01/09/24 08:00 Pulse 90 01/09/24 11:05 Resp 24 01/09/24 11:05 BP 122/83 01/09/24 11:00 Pulse Ox 96 01/09/24 11:00 FiO2 30 01/09/24 10:41 Intake & Output 01/08/24 01/09/24 01/09/24 18:59 06:59 18:59 Intake Total 3204.317 2340.213 780.108 Output Total 1345 1283 1155 Balance 2044.456 7461.213 -374.892 Weight 99 kg 104 kg Intake: IV 2686 2256 675 0.9 Normal Saline @ KVO 120 240 60 Ceftolozane/Tazobactam 3 200 gm In Sodium Chloride 0.9 % 100 ml @ 100 mls/hr IV Q8H [facility] Rx#:[id number] Dextrose 5% in Water 1, 750 900 150 000 ml @ 75 mls/hr IV . [id number] [facility] with Sodium Bicarb (1 Meq/ml) 150 ml Rx#:[id number] Magnesium 100 Normal Saline Pressure 36 36 15 Saline Potassium Chloride 10 meq 300 In Water For Injection 1 100ml.bag @ 100 mls/hr IVPB Q1H [facility] Rx#: [id number] Potassium Phosphate 10 100 mmol In Sodium Chloride 0 .9% 250 ml @ 125 mls/hr IV ONCE ONE Rx#:[id number] TPN 1080 1080 450 Intake, IV Titration 518.317 84.213 105.108 Amount Cisatracurium 200 mg In 196.449 Sodium Chloride 0.9% 180 ml @ 1 MCG/KG/MIN 5.838 mls/hr IV .Q24H [facility] Rx#: [id number] Magnesium Sulfate-D5w Pmx 100 1 gm In Dextrose/Water 1 100ml.bag @ 100 mls/hr IVPB ONCE ONE Rx#: [id number] propofoL 1,000 mg In 321.868 84.213 5.108 Empty Bag 1 bag @ 15 MCG/ KG/MIN 8.757 mls/hr IV . [id number] [facility] Rx#:[id number] Output: Chest Tube Drainage 70 78 20 Chest Tube Right 70 78 20 Drainage 160 120 50 Medial Abdomen 0 Right Abdomen 160 120 50 Urine 1115 1085 1085 Other: Voiding Method Indwelling Catheter Indwelling Catheter ABP, PAP, CO, CI - Last Documented Arterial Blood Pressure 165/76 - Exam GENERAL DESCRIPTION: An elderly male lying in bed in no distress RESPIRATORY SYSTEM: Unlabored breathing , decreased breath sounds at bases HEART: S1 S2 regular rate and rhythm , ABDOMEN: Soft , no tenderness EXTREMITIES: No edema feet - Labs CBC & Chem 7: 01/09/24 04:35 01/09/24 04:35 Labs: Abnormal Lab Results - Last 24 Hours (Table) 01/08/24 01/08/24 01/08/24 Range/Units 17:34 23:55 23:58 WBC (3.8-10.6) k/uL RBC (4.30-5.90) m/uL Hgb (13.0-17.5) gm/dL Hct (39.0-53.0) % RDW (11.5-15.5) % Neutrophils # (1.3-7.7) k/uL ABG pO2 (83-108) mmHg ABG Total CO2 (19-24) mmol/L Hemoglobin (13.0-17.5) gm/dL Potassium 3.2 L (3.5-5.1) mmol/L Chloride (98-107) mmol/L BUN (9-20) mg/dL Glucose (74-99) mg/dL POC Glucose (mg/dL) 154 H 179 H (70-110) mg/dL Calcium (8.4-10.2) mg/dL 01/09/24 01/09/24 01/09/24 Range/Units 04:35 04:35 05:00 WBC 15.3 H (3.8-10.6) k/uL RBC 2.50 L (4.30-5.90) m/uL Hgb 7.3 L (13.0-17.5) gm/dL Hct 22.8 L (39.0-53.0) % RDW 18.4 H (11.5-15.5) % Neutrophils # 11.3 H (1.3-7.7) k/uL ABG pO2 75 L (83-108) mmHg ABG Total CO2 27 H (19-24) mmol/L Hemoglobin 7.5 L (13.0-17.5) gm/dL Potassium (3.5-5.1) mmol/L Chloride 111 H (98-107) mmol/L BUN 47 H (9-20) mg/dL Glucose 157 H (74-99) mg/dL POC Glucose (mg/dL) (70-110) mg/dL Calcium 7.3 L (8.4-10.2) mg/dL 01/09/24 Range/Units 05:15 WBC (3.8-10.6) k/uL RBC (4.30-5.90) m/uL Hgb (13.0-17.5) gm/dL Hct (39.0-53.0) % RDW (11.5-15.5) % Neutrophils # (1.3-7.7) k/uL ABG pO2 (83-108) mmHg ABG Total CO2 (19-24) mmol/L Hemoglobin (13.0-17.5) gm/dL Potassium (3.5-5.1) mmol/L Chloride (98-107) mmol/L BUN (9-20) mg/dL Glucose (74-99) mg/dL POC Glucose (mg/dL) 147 H (70-110) mg/dL Calcium (8.4-10.2) mg/dL Microbiology - Last 24 Hours (Table) 01/07/24 15:07 Gram Stain - Final Sputum Sputum Culture - Final Pseudomonas aeruginosa 01/07/24 12:15 Gram Stain - Preliminary Pleural Fluid Body Fluid Culture - Preliminary Assessment and Plan (1) Sepsis Current Visit: Yes Status: Acute Code(s): A41.9 - SEPSIS, UNSPECIFIED ORGANISM SNOMED Code(s): 67985860 (2) Pneumonia Current Visit: Yes Status: Acute Code(s): J18.9 - PNEUMONIA, UNSPECIFIED ORGANISM SNOMED Code(s): 475426557 (3) Bacteremia Current Visit: Yes Status: Acute Code(s): R78.81 - BACTEREMIA SNOMED Code(s): 9782500 Plan: 1patient with pneumonia with a sputum showing Citrobacter and Pseudomonas aeruginosa, the patient sputum repeat is still growing Citrobacter and Pseudomonas, Pseudomonas that is a drug-resistant and resistant to Zosyn, patient is currently on Zerbaxa day number 10 out of 10, however keeping in mind the new findings of lung abscess on the CT status post drainage catheter placement by interventional radiology subsequently did have purulent pleural fluid which has been cultured did have a chest tube. 2-patient also have evidence of retro vesicular abscess on the CT abdominal pelvis, this has been discussed with the surgical team on the case in person however mention patient would not be able to tolerate any further surgery. 3patient is afebrile white count is trending down however this pain is now growing multidrug-resistant Pseudomonas aeruginosa we will go ahead and discontinue Zerbaxa start patient on IV Cipro and tobramycin while watching his kidney function closely overall prognosis remains to be guarded at the bedside question answered Dictation was produced using Reactivity dictation software. please excuse any grammatical, word or spelling errors. Time with Patient: Less than 30
[2024-01-09 17:34] LABS: Glucose,Whole Blood 134 mg/dL (70-110)
[2024-01-09] MEDS: DEXMEDETOMIDINE/0.9% NACL(PMX) 400 MCG in EMPTY BAG 1 BAG IV SCH (19:41)
[2024-01-09] MEDS: TOBRAMYCIN PER PHARMACY MISCELLANE SCH (20:15)
--- NOTE | 2024-01-09 21:25 | P.PN ---
Subjective Progress Note Date: 01/09/24 Patient seen and examined at bedside. No acute events. Objective - Vital Signs Vital signs: Vital Signs Temp 98.6 F 01/09/24 20:00 Pulse 96 01/09/24 20:00 Resp 24 01/09/24 20:00 BP 146/93 01/09/24 20:00 Pulse Ox 95 01/09/24 20:00 FiO2 30 01/09/24 20:00 Intake & Output 01/09/24 01/09/24 01/10/24 06:59 18:59 06:59 Intake Total 2340.213 1500.108 232 Output Total 1283 2086 431 Balance 1057.213 -585.892 -199 Weight 104 kg 104 kg Intake: IV 2256 1395 232 0.9 Normal Saline @ KVO 240 60 10 Dextrose 5% in Water 1, 900 150 000 ml @ 75 mls/hr IV . [id number] [facility] with Sodium Bicarb (1 Meq/ml) 150 ml Rx#:[id number] Fat Emulsion 20% 250 ml 84 42 In Empty Bag 1 bag @ 21 mls/hr IV TuThSa@0900 [facility] Rx#:[id number] Normal Saline Pressure 36 21 Saline TPN 1080 1080 180 Intake, IV Titration 84.213 105.108 Amount Magnesium Sulfate-D5w Pmx 100 1 gm In Dextrose/Water 1 100ml.bag @ 100 mls/hr IVPB ONCE ONE Rx#: [id number] propofoL 1,000 mg In 84.213 5.108 Empty Bag 1 bag @ 15 MCG/ KG/MIN 8.757 mls/hr IV . [id number] [facility] Rx#:[id number] Output: Chest Tube Drainage 78 50 40 Chest Tube Right 78 50 40 Drainage 120 130 50 Medial Abdomen 0 Right Abdomen 120 130 50 Urine 1085 1905 340 Stool 1 1 Other: Voiding Method Indwelling Catheter Indwelling Catheter Indwelling Catheter ABP, PAP, CO, CI - Last Documented Arterial Blood Pressure 173/76 - Constitutional General appearance: Present: no acute distress - Gastrointestinal Gastrointestinal Comment(s): Soft, wound VAC in place and midline, J-tube with continued drainage from around insertion site, somewhat improved from previous week. - Musculoskeletal Musculoskeletal: Present: generalized weakness - Labs CBC & Chem 7: 01/09/24 04:35 01/09/24 04:35 Labs: Abnormal Lab Results - Last 24 Hours (Table) 01/08/24 01/08/24 01/09/24 Range/Units 23:55 23:58 04:35 WBC (3.8-10.6) k/uL RBC (4.30-5.90) m/uL Hgb (13.0-17.5) gm/dL Hct (39.0-53.0) % RDW (11.5-15.5) % Neutrophils # (1.3-7.7) k/uL ABG pO2 (83-108) mmHg ABG Total CO2 (19-24) mmol/L Hemoglobin (13.0-17.5) gm/dL Potassium 3.2 L (3.5-5.1) mmol/L Chloride 111 H (98-107) mmol/L BUN 47 H (9-20) mg/dL Glucose 157 H (74-99) mg/dL POC Glucose (mg/dL) 179 H (70-110) mg/dL Calcium 7.3 L (8.4-10.2) mg/dL 01/09/24 01/09/24 01/09/24 Range/Units 04:35 05:00 05:15 WBC 15.3 H (3.8-10.6) k/uL RBC 2.50 L (4.30-5.90) m/uL Hgb 7.3 L (13.0-17.5) gm/dL Hct 22.8 L (39.0-53.0) % RDW 18.4 H (11.5-15.5) % Neutrophils # 11.3 H (1.3-7.7) k/uL ABG pO2 75 L (83-108) mmHg ABG Total CO2 27 H (19-24) mmol/L Hemoglobin 7.5 L (13.0-17.5) gm/dL Potassium (3.5-5.1) mmol/L Chloride (98-107) mmol/L BUN (9-20) mg/dL Glucose (74-99) mg/dL POC Glucose (mg/dL) 147 H (70-110) mg/dL Calcium (8.4-10.2) mg/dL 01/09/24 01/09/24 Range/Units 11:49 17:32 WBC (3.8-10.6) k/uL RBC (4.30-5.90) m/uL Hgb (13.0-17.5) gm/dL Hct (39.0-53.0) % RDW (11.5-15.5) % Neutrophils # (1.3-7.7) k/uL ABG pO2 (83-108) mmHg ABG Total CO2 (19-24) mmol/L Hemoglobin (13.0-17.5) gm/dL Potassium (3.5-5.1) mmol/L Chloride (98-107) mmol/L BUN (9-20) mg/dL Glucose (74-99) mg/dL POC Glucose (mg/dL) 164 H 134 H (70-110) mg/dL Calcium (8.4-10.2) mg/dL Microbiology - Last 24 Hours (Table) 01/07/24 15:07 Gram Stain - Final Sputum Sputum Culture - Final Pseudomonas aeruginosa 01/07/24 12:15 Gram Stain - Preliminary Pleural Fluid Body Fluid Culture - Preliminary Assessment and Plan Plan: ASSESSMENT: 1. 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 Status post J-tube placement and revision for small bowel obstruction 2. Abdominal wound dehiscence status post wound VAC placement 3. Status post tracheostomy PLAN: -At this time no plan to exchange J-tube, this was discussed further with the family. Concern is for dilating the fistula tract and having excessive output. Continue to monitor. -There is concern for increased output from around J-tube site with introduction of tube feeding. This was discussed in depth with family. Family would like to continue with TPN and lipids at this time. -Continue to hold tube feeds -Wound VAC scheduled to be changed Saturday/Saturday/Saturday -Continue TPN for nutrition support -Continue zinc barrier cream around J-tube
[2024-01-09 23:48] LABS: Glucose,Whole Blood 210 mg/dL (70-110)
[2024-01-10] MEDS: [UNRECOGNIZED DRUG - REMARK] IV SCH (01:38)
[2024-01-10 04:40] LABS: Anisocytosis Slight; HCT 20.2 % (39.0-53.0); Hypochromasia Slight; MCH 29.2 pg (25.0-35.0); MCHC 32.1 g/dL (31.0-37.0); Mean Platelet Volume 10.3; Platelet Count 187 k/uL (150-450); Poikilocytosis Slight; RBC 2.22 m/uL (4.30-5.90); RDW 18.6 % (11.5-15.5); WBC 14.4 k/uL (3.8-10.6)
[2024-01-10 04:44] LABS: HGB 6.5 gm/dL (13.0-17.5)
[2024-01-10 04:52] LABS: African American GFR (CKD) >90 (>60 ml/min/1.73 sqM); Anion Gap 0 mmol/L; Blood Urea Nitrogen 46 mg/dL (9-20); Calcium 7.2 mg/dL (8.4-10.2); Carbon Dioxide 25 mmol/L (22-30); Chloride 110 mmol/L (98-107); Glucose 127 mg/dL (74-99); Magnesium 1.8 mg/dL (1.6-2.3); Non-African American GFR(CKD) >90 (>60 ml/min/1.73 sqM); Phosphorus 1.7 mg/dL (2.5-4.5); Potassium 3.3 mmol/L (3.5-5.1); Sodium 135 mmol/L (137-145)
[2024-01-10 04:59] LABS: Anisocytosis Slight; HCT 21.1 % (39.0-53.0); Hypochromasia Moderate; MCH 29.1 pg (25.0-35.0); MCHC 31.5 g/dL (31.0-37.0); MCV 92.2 fL (80.0-100.0); Mean Platelet Volume 9.6; Platelet Count 188 k/uL (150-450); RBC 2.29 m/uL (4.30-5.90); RDW 18.3 % (11.5-15.5); WBC 15.4 k/uL (3.8-10.6)
[2024-01-10 05:03] LABS: HGB 6.7 gm/dL (13.0-17.5)
[2024-01-10] MEDS: POTASSIUM CHLORIDE 10 MEQ in WATER FOR INJECTION 1 100ML.BAG IVPB SCH (05:06)
[2024-01-10 05:28] LABS: ABG Base Excess 2.3 mmol/L; ABG HCO3 26 mmol/L (21-25); ABG Oxygen Saturation 97.2 % (94-97); ABG PCO2 35 mmHg (35-45); ABG PH 7.48 (7.35-7.45); ABG PO2 80 mmHg (83-108); ABG TCO2 27 mmol/L (19-24); Allen Test Performed? Yes
[2024-01-10 06:09] LABS: Glucose,Whole Blood 172 mg/dL (70-110)
--- NOTE | 2024-01-10 08:06 | XR ---
EXAMINATION TYPE: XR chest 1V portable DATE OF EXAM: 01/10/2024 5:25 AM COMPARISON: 01/09/2024 CLINICAL INDICATION: Male, 73 years old with history of vent, TECHNIQUE: XR chest 1V portable view(s) obtained. FINDINGS: The heart size is normal. The pulmonary vasculature is normal. Tracheostomy tube is in the midline. Patchy bilateral lung infiltrates at the lung bases. The drainag e catheter on the right is stable in position. Ports on the right has its tip in the deep right atriu m. PICC line has its tip in the distal superior vena cava region IMPRESSION: 1. Stable bilateral lung base infiltrates. 2. Stable catheters [facility], , 01/10/2024 8:04 AM
[2024-01-10] MEDS ORDERED: Phosphorus Replacement Protoco 1 EACH MISC MISCELLANE PRN (09:33)
--- NOTE | 2024-01-10 09:35 | P.PN ---
Subjective Patient is seen in follow-up for acute kidney injury. Patient underwent exploratory laparotomy with small bowel obstruction NG tube replacement Sep tem2023. Nonoliguric. Started on hemodialysis November 29, 2023. Last dialysis December 18, 2023. Status post tracheostomy December 10, 2023. Renal function has improved and is back to baseline. Receiving TPN. Off vasopressors. Underwent drainage of lung abscess January 07, 2024. Receiving a unit of blood today. Vital signs stable. General: Resting in bed. HEENT: Tracheostomy noted. LUNGS: Scattered rhonchi. Chest tube noted. HEART: Regular rate and rhythm. ABDOMEN: No drainage. EXTREMITITES: Trace edema. Objective - Vital Signs Vital signs: Vital Signs Temp 98.6 F 01/10/24 07:58 Pulse 84 01/10/24 09:09 Resp 18 01/10/24 07:58 BP 114/79 01/10/24 07:58 Pulse Ox 95 01/10/24 07:49 FiO2 30 01/10/24 08:50 Intake & Output 01/09/24 01/10/24 01/10/24 18:59 06:59 18:59 Intake Total 0734.481 9558.82 147.32 Output Total 2086 1603 100 Balance -585.892 -186.18 47.32 Weight 104 kg 100 kg Intake: IV 1395 1337 100 0.9 Normal Saline @ KVO 60 110 10 Dextrose 5% in Water 1, 150 000 ml @ 75 mls/hr IV . [id number] [facility] with Sodium Bicarb (1 Meq/ml) 150 ml Rx#:[id number] Fat Emulsion 20% 250 ml 84 147 In Empty Bag 1 bag @ 21 mls/hr IV TuThSa@0900 [facility] Rx#:[id number] Normal Saline Pressure 21 Saline TPN 1080 1080 90 Intake, IV Titration 105.108 79.82 47.32 Amount Dexmedetomidine/0.9% NaCl 79.82 47.32 (Pmx) 400 mcg In Empty Bag 1 bag @ 0.2 MCG/KG/HR 5.2 mls/hr IV .[id number] [facility] Rx#:[id number] Magnesium Sulfate-D5w Pmx 100 1 gm In Dextrose/Water 1 100ml.bag @ 100 mls/hr IVPB ONCE ONE Rx#: [id number] propofoL 1,000 mg In 5.108 Empty Bag 1 bag @ 15 MCG/ KG/MIN 8.757 mls/hr IV . [id number] [facility] Rx#:[id number] Blood Product 0 Unit 0 Output: Chest Tube Drainage 50 100 Chest Tube Right 50 100 Drainage 130 85 Medial Abdomen 0 Right Abdomen 130 85 Urine 1905 1415 100 Stool 1 3 Other: Voiding Method Indwelling Catheter Indwelling Catheter # Bowel Movements 1 ABP, PAP, CO, CI - Last Documented Arterial Blood Pressure 173/76 - Labs CBC & Chem 7: 01/10/24 04:51 01/10/24 04:32 Labs: Abnormal Lab Results - Last 24 Hours (Table) 01/09/24 01/09/24 01/09/24 Range/Units 11:49 17:32 23:47 WBC (3.8-10.6) k/uL RBC (4.30-5.90) m/uL Hgb (13.0-17.5) gm/dL Hct (39.0-53.0) % RDW (11.5-15.5) % ABG pH (7.35-7.45) ABG pO2 (83-108) mmHg ABG HCO3 (21-25) mmol/L ABG Total CO2 (19-24) mmol/L ABG O2 Saturation (94-97) % Hemoglobin (13.0-17.5) gm/dL Sodium (137-145) mmol/L Potassium (3.5-5.1) mmol/L Chloride (98-107) mmol/L BUN (9-20) mg/dL Glucose (74-99) mg/dL POC Glucose (mg/dL) 164 H 134 H 210 H (70-110) mg/dL Calcium (8.4-10.2) mg/dL Phosphorus (2.5-4.5) mg/dL Crossmatch 01/10/24 01/10/24 01/10/24 Range/Units 04:32 04:32 04:51 WBC 14.4 H 15.4 H (3.8-10.6) k/uL RBC 2.22 L 2.29 L (4.30-5.90) m/uL Hgb 6.5 L* 6.7 L* (13.0-17.5) gm/dL Hct 20.2 L 21.1 L (39.0-53.0) % RDW 18.6 H 18.3 H (11.5-15.5) % ABG pH (7.35-7.45) ABG pO2 (83-108) mmHg ABG HCO3 (21-25) mmol/L ABG Total CO2 (19-24) mmol/L ABG O2 Saturation (94-97) % Hemoglobin (13.0-17.5) gm/dL Sodium 135 L (137-145) mmol/L Potassium 3.3 L (3.5-5.1) mmol/L Chloride 110 H (98-107) mmol/L BUN 46 H (9-20) mg/dL Glucose 127 H (74-99) mg/dL POC Glucose (mg/dL) (70-110) mg/dL Calcium 7.2 L (8.4-10.2) mg/dL Phosphorus 1.7 L (2.5-4.5) mg/dL Crossmatch 01/10/24 01/10/24 01/10/24 Range/Units 05:25 05:38 06:08 WBC (3.8-10.6) k/uL RBC (4.30-5.90) m/uL Hgb (13.0-17.5) gm/dL Hct (39.0-53.0) % RDW (11.5-15.5) % ABG pH 7.48 H (7.35-7.45) ABG pO2 80 L (83-108) mmHg ABG HCO3 26 H (21-25) mmol/L ABG Total CO2 27 H (19-24) mmol/L ABG O2 Saturation 97.2 H (94-97) % Hemoglobin 6.7 L* (13.0-17.5) gm/dL Sodium (137-145) mmol/L Potassium (3.5-5.1) mmol/L Chloride (98-107) mmol/L BUN (9-20) mg/dL Glucose (74-99) mg/dL POC Glucose (mg/dL) 172 H (70-110) mg/dL Calcium (8.4-10.2) mg/dL Phosphorus (2.5-4.5) mg/dL Crossmatch See Detail Microbiology - Last 24 Hours (Table) 01/07/24 12:15 Anaerobic Culture - Preliminary Pleural Fluid 01/07/24 12:15 Gram Stain - Preliminary Pleural Fluid Body Fluid Culture - Preliminary Pseudomonas aeruginosa 01/07/24 15:07 Gram Stain - Final Sputum Sputum Culture - Final Pseudomonas aeruginosa Assessment and Plan Plan: Assessment: 1. Acute kidney injury secondary to ATN secondary to septic shock. Creatinine 0.86 on admission and up to 5.38 dated November 29, 2023. Urine output improved, now nonoliguric. UA fairly benign. No hydronephrosis noted on imaging. Started on hemodialysis November 29, 2023 due to volume overload. Patient initially had a right femoral catheter placed which subsequently became occluded and a left tunneled femoral catheter was placed December 06, 2023. Renal function back to baseline. 2. Perforated small bowel status post exploratory laparotomy with abdominal washout, small bowel resection and J-tube replacement November 25, 2023. 3. A-fib with RVR. s/p amiodarone drip. Also received digoxin this admission. 4. Recently diagnosed gastric B-cell lymphoma. 5. Septic shock. Likely abdominal source. On IV antibiotics. Blood culture positive for staph. ID following. Dialysis catheter removed. 6. Hypocalcemia secondary to acute kidney injury. Replaced. Improved. 7. Metabolic acidosis secondary to acute kidney injury, TPN. 8. Volume overload. Improved with diuresis and ultrafiltration. 9. Status post tracheostomy December 10, 2023. 10. Anemia. Component of chronic illness and acute blood loss. Received blood transfusions and DDAVP this admission. 11. Respiratory and metabolic acidosis status post bicarb drip. Better. 12. Hypernatremia from lack of oral water intake. Status post D5W. Sodium level now normal. 13. Hypokalemia from intracellular shifting from bicarb. Being replaced. Plan: Last dialysis December 18, 2023. No further need at this time. Dialysis catheter removed December 28, 2023. Receiving TPN. Will replace phosphorus. Further to be adjusted in TPN. Avoid nephrotoxins. Preserved EF noted on echocardiogram. Case discussed with family present at bedside. Replace electrolytes as needed. Lasix as needed. Receiving a unit of blood today. Stop Aranesp as patient does not have CKD.
[2024-01-10] MEDS: SODIUM PHOSPHATE 30 MMOL in DEXTROSE 5% IN WATER 250 ML IVPB ONE (11:03)
[2024-01-10 11:33] LABS: Glucose,Whole Blood 122 mg/dL (70-110)
--- NOTE | 2024-01-10 12:49 | P.PN ---
Subjective Progress Note Date: 01/10/24 Principal diagnosis: Reason for follow-up is pneumonia and bacteremia Patient is 73-year-old with male initial presentation to the hospital on 11/11/2021 for after the patient did have aspiration while undergoing elective endoscopy, diagnosed with a non-Hodgkin of, subsequently did have explained laparotomy for perforated small bowel abdominal washout and feeding jejunostomy tube patient did require dialysis catheter placement for dialysis during this hospital stay and tracheostomy for respiratory failure, infectious was consulted for fever. On today's evaluation that is 01/10/2024, Patient is afebrile patient is currently on ventilator through the trach FiO2 is currently stable at 30% no significant purulent secretion through the ET patient did not have any diarrhea as reported by the nursing staff and is currently on TPN. Patient white count is 15.4 creatinine 0.78 pleural fluid culture also growing Pseudomonas aeruginosa with sensitivity pending Objective - Vital Signs Vital signs: Vital Signs Temp 98.1 F 01/10/24 08:00 Pulse 84 01/10/24 09:09 Resp 23 01/10/24 09:00 BP 116/88 01/10/24 09:00 Pulse Ox 96 01/10/24 09:00 FiO2 30 01/10/24 08:50 Intake & Output 01/09/24 01/10/24 01/10/24 18:59 06:59 18:59 Intake Total 5163.554 5085.82 147.32 Output Total 2086 1603 100 Balance -585.892 -186.18 47.32 Weight 104 kg 100 kg Intake: IV 1395 1337 100 0.9 Normal Saline @ KVO 60 110 10 Dextrose 5% in Water 1, 150 000 ml @ 75 mls/hr IV . [id number] NIRMAL with Sodium Bicarb (1 Meq/ml) 150 ml Rx#:[id number] Fat Emulsion 20% 250 ml 84 147 In Empty Bag 1 bag @ 21 mls/hr IV TuThSa@0900 [facility] Rx#:[id number] Normal Saline Pressure 21 Saline TPN 1080 1080 90 Intake, IV Titration 105.108 79.82 47.32 Amount Dexmedetomidine/0.9% NaCl 79.82 47.32 (Pmx) 400 mcg In Empty Bag 1 bag @ 0.2 MCG/KG/HR 5.2 mls/hr IV .[id number] [facility] Rx#:[id number] Magnesium Sulfate-D5w Pmx 100 1 gm In Dextrose/Water 1 100ml.bag @ 100 mls/hr IVPB ONCE ONE Rx#: [id number] propofoL 1,000 mg In 5.108 Empty Bag 1 bag @ 15 MCG/ KG/MIN 8.757 mls/hr IV . [id number] [facility] Rx#:[id number] Blood Product 0 Unit 0 Output: Chest Tube Drainage 50 100 Chest Tube Right 50 100 Drainage 130 85 Medial Abdomen 0 Right Abdomen 130 85 Urine 1905 1415 100 Stool 1 3 Other: Voiding Method Indwelling Catheter Indwelling Catheter # Bowel Movements 1 ABP, PAP, CO, CI - Last Documented Arterial Blood Pressure 173/76 - Exam GENERAL DESCRIPTION: An elderly male lying in bed in no distress RESPIRATORY SYSTEM: Unlabored breathing , decreased breath sounds at bases HEART: S1 S2 regular rate and rhythm , ABDOMEN: Soft , no tenderness EXTREMITIES: No edema feet - Labs CBC & Chem 7: 01/10/24 04:51 01/10/24 04:32 Labs: Abnormal Lab Results - Last 24 Hours (Table) 01/09/24 01/09/24 01/09/24 Range/Units 11:49 17:32 23:47 WBC (3.8-10.6) k/uL RBC (4.30-5.90) m/uL Hgb (13.0-17.5) gm/dL Hct (39.0-53.0) % RDW (11.5-15.5) % ABG pH (7.35-7.45) ABG pO2 (83-108) mmHg ABG HCO3 (21-25) mmol/L ABG Total CO2 (19-24) mmol/L ABG O2 Saturation (94-97) % Hemoglobin (13.0-17.5) gm/dL Sodium (137-145) mmol/L Potassium (3.5-5.1) mmol/L Chloride (98-107) mmol/L BUN (9-20) mg/dL Glucose (74-99) mg/dL POC Glucose (mg/dL) 164 H 134 H 210 H (70-110) mg/dL Calcium (8.4-10.2) mg/dL Phosphorus (2.5-4.5) mg/dL Crossmatch 01/10/24 01/10/24 01/10/24 Range/Units 04:32 04:32 04:51 WBC 14.4 H 15.4 H (3.8-10.6) k/uL RBC 2.22 L 2.29 L (4.30-5.90) m/uL Hgb 6.5 L* 6.7 L* (13.0-17.5) gm/dL Hct 20.2 L 21.1 L (39.0-53.0) % RDW 18.6 H 18.3 H (11.5-15.5) % ABG pH (7.35-7.45) ABG pO2 (83-108) mmHg ABG HCO3 (21-25) mmol/L ABG Total CO2 (19-24) mmol/L ABG O2 Saturation (94-97) % Hemoglobin (13.0-17.5) gm/dL Sodium 135 L (137-145) mmol/L Potassium 3.3 L (3.5-5.1) mmol/L Chloride 110 H (98-107) mmol/L BUN 46 H (9-20) mg/dL Glucose 127 H (74-99) mg/dL POC Glucose (mg/dL) (70-110) mg/dL Calcium 7.2 L (8.4-10.2) mg/dL Phosphorus 1.7 L (2.5-4.5) mg/dL Crossmatch 01/10/24 01/10/24 01/10/24 Range/Units 05:25 05:38 06:08 WBC (3.8-10.6) k/uL RBC (4.30-5.90) m/uL Hgb (13.0-17.5) gm/dL Hct (39.0-53.0) % RDW (11.5-15.5) % ABG pH 7.48 H (7.35-7.45) ABG pO2 80 L (83-108) mmHg ABG HCO3 26 H (21-25) mmol/L ABG Total CO2 27 H (19-24) mmol/L ABG O2 Saturation 97.2 H (94-97) % Hemoglobin 6.7 L* (13.0-17.5) gm/dL Sodium (137-145) mmol/L Potassium (3.5-5.1) mmol/L Chloride (98-107) mmol/L BUN (9-20) mg/dL Glucose (74-99) mg/dL POC Glucose (mg/dL) 172 H (70-110) mg/dL Calcium (8.4-10.2) mg/dL Phosphorus (2.5-4.5) mg/dL Crossmatch See Detail Microbiology - Last 24 Hours (Table) 01/07/24 12:15 Anaerobic Culture - Preliminary Pleural Fluid 01/07/24 12:15 Gram Stain - Preliminary Pleural Fluid Body Fluid Culture - Preliminary Pseudomonas aeruginosa 01/07/24 15:07 Gram Stain - Final Sputum Sputum Culture - Final Pseudomonas aeruginosa Assessment and Plan (1) Sepsis Current Visit: Yes Status: Acute Code(s): A41.9 - SEPSIS, UNSPECIFIED OR GANISM SNOMED Code(s): 37255883 (2) Pneumonia Current Visit: Yes Status: Acute Code(s): J18.9 - PNEUMONIA, UNSPECIFIED ORGANISM SNOMED Code(s): 264830273 (3) Bacteremia Current Visit: Yes Status: Acute Code(s): R78.81 - BACTEREMIA SNOMED Code(s): 9292553 Plan: 1patient with pneumonia with a sputum showing Citrobacter and Pseudomonas aeruginosa, the patient sputum repeat is still growing Citrobacter and Pseudomonas, Pseudomonas that is a drug-resistant and resistant to Zosyn, subsequently did have new findings of lung abscess on the CT status post drainage catheter placement by interventional radiology subsequently did have purulent pleural fluid which has been cultured did have a chest tube and is growing Pseudomonas with sensitivities pending sputum did grew multidrug- resistant Pseudomonas aeruginosa. 2-patient also have evidence of retro vesicular abscess on the CT abdominal pel vis, this has been discussed with the surgical team on the case in person however mention patient would not be able to tolerate any further surgery. 3patient to continue with IV Cipro and tobramycin while watching his kidney function and awaiting sensitivities on the Pseudomonas from the pleural fluid at the bedside questions answered Dictation was produced using [employer] dictation software. please excuse any grammatical, word or spelling errors. Time with Patient: Less than 30
--- NOTE | 2024-01-10 13:47 | P.PN ---
Subjective Progress Note Date: 01/10/24 01/06/2024, the patient is being seen for a follow-up. The patient remains off sedation. The patient is arousable. Remains profoundly weak and debilitated. He remains on the mechanical ventilator, assist-control mode with rate of 32, tidal volume of 450, FiO2 of 30% with a PEEP of 5. Chest x-ray shows extensive consolidation of the right lung and right upper lobe opacity with a previously described cavity. Blood gas shows a pH of 7.4 with a pCO2 of 34 pO2 of 93. The patient remains on KVO IV fluids. The patient is on TPN for nutritional support at a rate of 90 cc an hour. Fluid balance is +1.3 L over the past 24 hours. The patient is receiving Dilaudid for pain control. While off Dilaudid, he developed hypertension and overnight the patient was started on Cleviprex at 4 mg an hour. RAYA drain has produced around 40 cc over the past 24 hours. The J- tube is nonfunctional. The wound VAC is still in place. The blood work from today shows a white cell count of 10.6 and hemoglobin of 7.6 and a platelet count of 111. Renal function is normalized and the patient's BUN is 44 with a c reatinine of 0.9. Serum bicarb is at 19 with a chloride of 115 and a sodium level at 137. LFTs are normal with an alkaline phosphatase of 222. The sputum sample was positive for Citrobacter and Pseudomonas. The Pseudomonas aeruginosa was quite resistant and the patient is currently on a combination of ceftolozane and tazobactam. Afebrile. Hemodynamically stable. Cardiac rhythm is sinus. On 01/07/2024, the patient remains off sedation. Somewhat encephalopathic. Extremely weak, occasionally follows some simple commands. Unable to raise his arms against gravity. Continues to have respiratory secretions and coughing episodes specially once the effect of Dilaudid wears off. Remains on a mechanical ventilator. He was able to tolerate pressure support of 12 and a PEEP of 5 for a total of 4 hours yesterday. Overnight, the patient was kept on assist-control mode of mechanical ventilation this morning he is on assist- control of 20, tidal volume of 500, FiO2 of 30% with a PEEP of 5. The patient was placed back on pressure support mode of mechanical ventilation this is being done on a daily basis. Blood gas showed a pH of 7.44 with a pCO2 of 30 and pO2 100. Discussed the case with interventional radiology and the patient has a right lung abscess and the patient is going to have a pigtail catheter inserted today. Renal function is normal. TPN is running at a rate of 90 cc an hour. The J-tube is not being utilized at this point. Fluid balance is +149 cc over the past 24 hours. RAYA drain output is noted. Output is serosanguineous. Wound VAC is in place. The patient remains on Cleviprex at 2 mg an hour and the patient receiving hydralazine 10 mg for blood pressure control every 6 hours. He remains on a broad-spectrum antibiotic coverage and he is on ceftolozane tazobactamBlood work from today shows a WBC count of 11.4, hemoglobin of 7.4 and a platelet count of 145. BUN is 44 with a creatinine of 0.8 and sodium levels at 136 and potassium levels at 3.4. Glucose is 166. 01/08/2024, the patient is sedated on propofol and the patient is also paralyzed on Nimbex. Propofol during 50 mcg/kg/min and Nimbex at 4 mcg. The patient had to be sedated and paralyzed as the patient had frequent coughing spells to the point where the patient was unable to ventilate while being on the mechanical ventilator. Noted he had a pigtail catheter inserted yesterday. Pus was drained from his right hemithorax and a total amount of output is around 90 cc over the past 12 hours no purulent material and the patient has a positive airleak. The chest x-ray is still showing an area of consolidation which is quite extensive in the right lung with some improvement in the aeration of the right lung. Tracheostomy tube is in good location. A bronchoscopy was done. Unable to locate a bronchopleural fistula. Therapeutic airway suctioning was done. Respiratory secretions were suctioned out and sent for cultures. The right lung abscess was also sent for cultures. Currently on assist-control at rate of 20, tidal volume of 500, FiO2 of 30% with a PEEP of 5. Blood gas showed pH of 7.25 with a pCO2 of 50 and pO2 of 76. A white cell count of 17.3 with a hemoglobin 7.1 and a platelet count of 157. His sodium level is at 135, potassium levels at 3.4, bicarb is at 19 with a BUN of 45 with a creatinine of 0.8. Phosphorus is at 2.9, magnesium is at 1.8. Blood sugars of 208. He remains on ceftolozane/tazobactam. RAYA drain is still in place. Wound VAC is still in place. Receives TPN for nutritional support. The patient is not receiving enteral feeding. The J-tube is nonfunctional. 01/09/2024, the patient was taken off the paralytics and the patient was taken off the propofol this morning. He is calm and comfortable. Cough is less. Pigtail is draining total of 300 cc of purulent material since insertion and 220 cc over the past 24 hours. There is positive air leak. Chest x-ray remains unchanged. No pneumothorax. Tracheostomy tube is in good location. Patient is currently on assist-control mode rate of 20, tidal volume of 500, FiO2 30% with a PEEP of 5. Blood gas showed a pH of 7.4 with a pCO2 of 40 and pO2 of 75. The patient was given bicarb infusion overnight and the patient serum bicarb has improved. Remains on TPN for nutritional support at a rate of 90 cc an hour. The white cell count of 15.3 with a hemoglobin 7.3. The serum bicarb is at 24. Chloride is 111 and a potassium level is at 3.6 and a sodium levels at 137. Remains on ceftolozane/tazobactam. ID is on the case for further antibiotic modification. Most recent Pseudomonas that was cultured from the lungs was sensitive to quinolones. RAYA drain is in place. The J-tube is nonfunctional. The patient continues to be on TPN for nutritional support. 01/10/2024, the patient is on low-dose Precedex. Currently comfortable, sensitive to mechanical ventilator. Output from the pigtail has dropped and the patient continues to have a positive airleak. The chest x-ray shows bilateral consolidation worse on the right and there is a small right apical pneumothorax. Pigtail catheter is in a good location. Blood gas showed a pH of 7.48 with a pCO2 of 35 and a pO2 of 83. He is on assist-control mode with rate of 20, tidal volume of 600, FiO2 30% with a PEEP of 5. RAYA drain output is serosanguineous. TPN is at 90 cc an hour. Fluid balance is -700 cc. The white cell count is at 15.4, hemoglobin is at 6.7 and the patient was given a unit of packed RBC and a platelet count is 188. Electrolytes show a BUN of 46 with a creatinine of 0.7, sodium of 135, potassium level of 3.3. Antibiotics has been modified to a combination of ciprofloxacin and tobramycin as the patient showed quinolone sensitive Pseudomonas in the sputum and in the drain the abscess from the right lung. Objective - Vital Signs Vital signs: Vital Signs Temp 98.1 F 01/10/24 08:00 Pulse 87 01/10/24 10:00 Resp 24 01/10/24 10:00 BP 127/82 01/10/24 10:00 Pulse Ox 96 01/10/24 10:00 FiO2 30 01/10/24 08:50 Intake & Output 01/09/24 01/10/24 01/10/24 18:59 06:59 18:59 Intake Total 3035.333 1724.82 432.32 Output Total 2086 1603 380 Balance -585.892 -186.18 52.32 Weight 104 kg 100 kg Intake: IV 1395 1337 385 0.9 Normal Saline @ KVO 60 110 25 Dextrose 5% in Water 1, 150 000 ml @ 75 mls/hr IV . [id number] NIRMAL with Sodium Bicarb (1 Meq/ml) 150 ml Rx#:[id number] Fat Emulsion 20% 250 ml 84 147 In Empty Bag 1 bag @ 21 mls/hr IV TuThSa@0900 [facility] Rx#:[id number] Normal Saline Pressure 21 Saline TPN 1080 1080 360 Intake, IV Titration 105.108 79.82 47.32 Amount Dexmedetomidine/0.9% NaCl 79.82 47.32 (Pmx) 400 mcg In Empty Bag 1 bag @ 0.2 MCG/KG/HR 5.2 mls/hr IV .[id number] [facility] Rx#:[id number] Magnesium Sulfate-D5w Pmx 100 1 gm In Dextrose/Water 1 100ml.bag @ 100 mls/hr IVPB ONCE ONE Rx#: [id number] propofoL 1,000 mg In 5.108 Empty Bag 1 bag @ 15 MCG/ KG/MIN 8.757 mls/hr IV . [id number] [facility] Rx#:[id number] Blood Product 0 Unit 0 Output: Chest Tube Drainage 50 100 0 Chest Tube Right 50 100 0 Drainage 130 85 100 Medial Abdomen 0 Right Abdomen 130 85 100 Urine 1905 1415 280 Stool 1 3 Other: Voiding Method Indwelling Catheter Indwelling Catheter # Bowel Movements 1 ABP, PAP, CO, CI - Last Documented Arterial Blood Pressure 173/76 - Exam No acute distress, opening of his eyes, not responding to commands, off Nimbex and off propofol, on the mechanical ventilator. The patient has a tracheostomy tube in place. HEENT examination is grossly unremarkable. Mucous membranes are moist. No oral lesions.. The patient also has a tracheostomy tube in place and the patient has a #8 Shiley tracheostomy tube. Cardiac exam revealed the PMI to be normally situated and sized. The rhythm was regular and no extrasystoles were noted during several minutes of auscultation. The first and second heart sounds were normal and physiologic splitting of the second heart sound was noted. There were no murmurs, rubs, clicks, or gallops. The patient is in sinus tachycardia. Lungs reveal mild scattered rhonchi. No wheezes or crackles. Breath sounds equal. Diminished breath sound lung base bilaterally. Pigtail catheter in the right chest posteriorly located with positive output and positive airleak on the Pleur-evac. Abdomen distended without bowel sounds. J-tube is noted. Mid abdominal wound is covered with a wound VAC and a RAYA drain in place and output is serosanguineous. Extremities are intact. No cyanosis clubbing trace edema lower extremities bilaterally Skin is without rash or lesion. The wound at the Mediport site is dry and the area has been sutured and the site is clean for now. Neurologic examination is brief but nonfocal. Currently, the patient is still sedated while being off propofol. - Labs CBC & Chem 7: 01/10/24 04:51 01/10/24 04:32 Labs: Abnormal Lab Results - Last 24 Hours (Table) 01/09/24 01/09/24 01/09/24 Range/Units 11:49 17:32 23:47 WBC (3.8-10.6) k/uL RBC (4.30-5.90) m/uL Hgb (13.0-17.5) gm/dL Hct (39.0-53.0) % RDW (11.5-15.5) % ABG pH (7.35-7.45) ABG pO2 (83-108) mmHg ABG HCO3 (21-25) mmol/L ABG Total CO2 (19-24) mmol/L ABG O2 Saturation (94-97) % Hemoglobin (13.0-17.5) gm/dL Sodium (137-145) mmol/L Potassium (3.5-5.1) mmol/L Chloride (98-107) mmol/L BUN (9-20) mg/dL Glucose (74-99) mg/dL POC Glucose (mg/dL) 164 H 134 H 210 H (70-110) mg/dL Calcium (8.4-10.2) mg/dL Phosphorus (2.5-4.5) mg/dL Crossmatch 01/10/24 01/10/24 01/10/24 Range/Units 04:32 04:32 04:51 WBC 14.4 H 15.4 H (3.8-10.6) k/uL RBC 2.22 L 2.29 L (4.30-5.90) m/uL Hgb 6.5 L* 6.7 L* (13.0-17.5) gm/dL Hct 20.2 L 21.1 L (39.0-53.0) % RDW 18.6 H 18.3 H (11.5-15.5) % ABG pH (7.35-7.45) ABG pO2 (83-108) mmHg ABG HCO3 (21-25) mmol/L ABG Total CO2 (19-24) mmol/L ABG O2 Saturation (94-97) % Hemoglobin (13.0-17.5) gm/dL Sodium 135 L (137-145) mmol/L Potassium 3.3 L (3.5-5.1) mmol/L Chloride 110 H (98-107) mmol/L BUN 46 H (9-20) mg/dL Glucose 127 H (74-99) mg/dL POC Glucose (mg/dL) (70-110) mg/dL Calcium 7.2 L (8.4-10.2) mg/dL Phosphorus 1.7 L (2.5-4.5) mg/dL Crossmatch 01/10/24 01/10/24 01/10/24 Range/Units 05:25 05:38 06:08 WBC (3.8-10.6) k/uL RBC (4.30-5.90) m/uL Hgb (13.0-17.5) gm/dL Hct (39.0-53.0) % RDW (11.5-15.5) % ABG pH 7.48 H (7.35-7.45) ABG pO2 80 L (83-108) mmHg ABG HCO3 26 H (21-25) mmol/L ABG Total CO2 27 H (19-24) mmol/L ABG O2 Saturation 97.2 H (94-97) % Hemoglobin 6.7 L* (13.0-17.5) gm/dL Sodium (137-145) mmol/L Potassium (3.5-5.1) mmol/L Chloride (98-107) mmol/L BUN (9-20) mg/dL Glucose (74-99) mg/dL POC Glucose (mg/dL) 172 H (70-110) mg/dL Calcium (8.4-10.2) mg/dL Phosphorus (2.5-4.5) mg/dL Crossmatch See Detail Microbiology - Last 24 Hours (Table) 01/07/24 12:15 Anaerobic Culture - Preliminary Pleural Fluid 01/07/24 12:15 Gram Stain - Preliminary Pleural Fluid Body Fluid Culture - Preliminary Pseudomonas aeruginosa 01/07/24 15:07 Gram Stain - Final Sputum Sputum Culture - Final Pseudomonas aeruginosa Assessment and Plan Plan: Acute hypoxemic respiratory failure with failure to wean from mechanical ventilation, S/P tracheostomy on December 10, 2023. The patient has bilateral pneumonia with a cavitary infiltrate in the right upper lobe, secondary to Pseudomonas aeruginosa and Citrobacter and the patient is currently on a combination of ceftolozane/tazobactam. CAT scan of the chest done on 12/17/2023 was reviewed and the patient has a cavitating cyst/abscess in the posterior aspect of the right upper lobe in addition to patchy opacities bilaterally right more than left consistent with pneumonia,/gram-negative pneumonia. The patient had a pigtail catheter inserted with drainage of the right lung abscess. The bronchial washing is positive for Pseudomonas aeruginosa, quinolone sensitive and the cultures from the pigtail catheter/lung abscess was also positive for Pseudomonas aeruginosa.. Chest x-ray findings are essentially unchanged, stable consolidation of the right lung and the pigtail remains in good location. The patient has a tiny right apical pneumothorax. There is positive air leak. The patient is currently on a combination of tobramycin and ciprofloxacin. Hospital-acquired right lung pseudomonal/Klebsiella pneumonia. Patient is currently on IV Cipro and Tobra. Chest x-ray from remains unchanged. Respiratory secretions are copious. Coughing episodes have subsided while being on Precedex. Cough, subsided, continues to have respiratory secretions. Rule out underlying bronchopleural fistula. Bronchoscopy was completed. 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 Small bowel perforation with abdominal contamination. The patient is status post expiratory laparotomy and small bowel resection and insertion of another jejunostomy tube. The patient jejunostomy is not functional and remains clogged and this was unclogged yesterday. Nevertheless, the tube itself is still malfunctioning. However, the abdominal wound is dehisced and is infected. RAYA drain output is serosanguineous. A wound VAC was applied to the anterior abdominal wall. Peritonitis secondary to above, recovered Septic shock secondary to above, the patient is currently off pressors Atrial fibrillation with rapid medical response, currently back into normal sinus rhythm . Acute kidney injury, off hemodialysis and renal function has normalized History of acute aspiration during upper endoscopy most likely secondary to gas tric outlet obstruction secondary to non-Hodgkin's lymphoma. weight loss most likely secondary non-Hodgkin's lymphoma involving the stomach. 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 Malfunctioning of the J-tube, currently on TPN for nutritional support Hypertension Plan Continue ventilator support. Dropped a tidal volume to 550 Continue Precedex and titrate the dose Bronchoscopy was done, unable to find a fistula although the possibility of bronchopleural fistula cannot be completely ruled out as the patient continues to have purulent secretions and frequent coughing episodes. He does have a positive air leak in his pigtail catheter. Output from the pigtail catheter has dropped, will consider alteplase dornase. Noted the patient has a positive air leak and clamping of the tube may not be a favorable thing to do. Will discuss this with the cardiothoracic team. Cultures from the right lung abscess and sputum was sent and the sputum sample was positive for Pseudomonas aeruginosa, quinolone sensitive. Continue IV ciprofloxacin/tobramycin The J-tube is nonfunctional and the patient is on TPN for nutritional support IV fluids to KVO Monitor fever pattern General Surgery is on the case regarding abdominal wound Condition remains extremely critical with poor prognosis based on the above Will continue to follow this patient along with the rest of the consultants. Condition is critical over the poor outcome based on the above. Evaluation was done more than 30 minutes. Time with Patient: Greater than 30
[2024-01-10] MEDS ORDERED: HYDROmorphone 1 MG/ML 1 ML SYRINGE IVP SCH (17:00)
[2024-01-10] MEDS: DORNASE ALFA 5 MG in SODIUM CHLORIDE 0.9% 50 ML IRRIGATION ONE (17:15)
[2024-01-10] MEDS: ALTEPLASE 10 MG in SODIUM CHLORIDE 0.9% 50 ML IRRIGATION ONE (17:15)
[2024-01-10] MEDS: HYDROmorphone 2 MG/ML 1 ML SYRINGE IVP SCH (17:48)
[2024-01-10 17:53] LABS: Glucose,Whole Blood 213 mg/dL (70-110)
--- NOTE | 2024-01-10 19:10 | P.PN ---
Progress Note - Text Progress Note Date: 01/10/24 Chief Complaint: On the ventilator This is a 73-year-old patient, follows with Dr. Patricia Deal. Patient was seen this morning in the ICU. Patient's and daughter at the bedside. History obtained predominantly by the . Patient been having trouble with his stomach symptoms for close to 8 months. Patient underwent EGD by Dr. Sahara Cheng yesterday. Patient was found to have ulcerated around the antrum and obstruction to the pylorus. A lot of retained food was found. Patient aspirated. Had to be intubated and brought to the ICU. On a Levophed drip. FiO2 50 and a PEEP of 6. Patient had been losing weight lost about 25 pounds. Previously has a history of mitral valve prolapse. November 13: ICU. Patient remains on Precedex drip and propofol drip. Did not do well attempted extubation yesterday. Patient been off Levophed. NG tube to suction. Spoke to patient's and son at the bedside. Biopsy results awaited. Hemoglobin dropped to 6.9 this morning. Get a unit of blood. November 14: ICU. Up in a chair. Extubated yesterday. NG tube to suction. at the bedside. 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 Oncology was consulted. They have ordered a port. Results discussed with Dr. Sahara Cheng. General surgery was consulted for J-tube placement. Discussed with at the bedside. Patient getting IV fluids, IV Zosyn,. Patient has been on IV amiodarone for A-fib-back in sinus rhythm. Multiple PACs. Did receive unit of blood yesterday. Also IV ferric gluconate. November 15: ICU. Patient earlier today underwent jejunostomy tube placement and a port placement. Patient awake. Answering questions. NG tube to suction present. Updated patient's . Patient remains on IV amiodarone and IV Zosyn. November 16: ICU. Up in the chair. NG tube present but not to suction. Trickle feeding through the jejunostomy tube should be started today. Dietitian has been on board. IV Zosyn to continue. Patient's and his sister at the bedside. Discussed. Also spoke with Dr. Serna. Given patient has no other predisposing cardiac factors for the A-fib except acute illness. His LV function is normal. Left atrium is normal. He has already been loaded with IV amiodarone. Will switch him to oral Lopressor 12.5 twice daily. Hence will DC amiodarone. Patient yesterday had wheezing was put on bronchodilators steroids per pulmonary. November 17: Propped up in bed. NG tube was discontinued. Sinus rhythm. Remains NPO. Getting G-tube feeding at 40 cc an hour. Dietitian following. Get arrangements done for DC home tomorrow including tube feeding. Increase activity discussed with patient and elder daughter at the bedside. Still requiring oxygen. Incentive spirometry. November 18: Patient up in recliner. Earlier today spoke to manager social David. Informed patient is rather weak and will be going to the [facility]. Looking at authorization. Denae came to the room and spoke to patient his and his daughter. They are very keen to take the patient home as 3 daughters all nurses and they will take care of him at home. Patient earlier today to abdominal cramping and some loose stools.'s tube feeding was held. Told the nurse to start back at the rate of 40 cc an hour. He was before the getting it at 55 cc an hour. Incentive spirometry was again emphasized. Patient remains on 4 L of oxygen. November 19: I saw the patient this morning. Hence I am in the evening. Morning was sitting with his sons. Has some edema. Lungs had crackles I gave him 40 mg of Lasix. He did make good urine. Tube feeding was held from the p revious evening of because of abdominal cramping. Acute abdominal series showed nonspecific bowel gas pattern and SBO to be ruled out. Family and patient was updated. Told him discharge will depend on day by day. Later this afternoon CT scanAnd abdomen pelvis done. Showed small bowel to be 3 point centimeter dilated. Some anasarca. Gastric findings. Gallstones. Later spoke to Dr. Irby from general surgery. They will further review and decide about further plan of action. Will give further dose of IV Lasix because of fluid overload from likely hypoalbuminemia and IV fluids previously received. Patient may take his pills by mouth. Total time spent today about 1 hour with over 40 minutes of discussion. Patient did state his breathing is better after Lasix this morning. November 20: Saw the patient this morning. was present. Patient received 2 more doses of Lasix. Diuresed well. Breathing much better. Lungs are sounding better. Discussed with Dr. Zepeda other surgeon. He is taking 3 cc out of the balloon and the gastrostomy tube. Started trickle feeding at 5 cc an hour. Will see how this does. Later in the day ran into the and the daughter again. Did update them on the same. Dilaudid was discontinued yesterday but morphine was ordered by surgery for patient having pain. Concerns about GI issues with that we will DC the morphine. As family does not want the same. November 21: Patient reclining bed. Tired. Several family members at the bedside. Including his and eldest daughter. Patient started on trickle feed yesterday at 5 cc an hour. This morning he has been on 10 cc an hour. Still having some loose stools. C. difficile was ordered. Patient on 2 L of nasal cannula. Has diuresed well. Will give an additional dose of Lasix today. If C. difficile is negative and the diarrhea is from the tube feedings we may have to use a fecal management system to keep him comfortable. Otherwise patient remains NPO. Dietitian is following the patient. Care was discussed length with patient the and daughter at the bedside. Questions answered. Liquid Tylenol has been added for abdominal pain. Avoid narcotics. Elevated white count likely from Solu-Medrol 11/23/2023--patient was feeling better today. Multiple family member at bedside. No issues overnight. Normal saline at 10 cc an hour, tube feeding at 20 cc an hour, remains on Zosyn, on 3 L oxygen. Afebrile. Heart rate 62, respiratory rate 16, blood pressure 114/67, saturating 91% on 3 L. WBCs 14.5, 9.7 hemoglobin. Platelet 242. BMP is unremarkable. Pulmonary and general surgery following. General surgery recommended to continue tube feeds at 20 cc/h. 11/24/2023--patient reported significant abdominal discomfort, also noted to have leak around G-tube. General surgery is following, evaluated the patient at bedside, adjusted tube feeds. Also reported having diarrhea, on 2 L oxygen, went up to 5 L. Blood pressure was low, 500 mL fluid bolus with close monitoring of respiratory status ordered. Currently on DuoNebs, Solu-Medrol, will continue Zosyn. Chest x-ray showed a left lower lobe infiltrate. Abdominal x-ray showed multiple air-fluid levels. CT abdomen showed multiple dilated small bowel loops, consistent with obstruction, pneumoperitoneum, cholelithiasis and ascites. WBCs 14.1, platelet 255, hemoglobin 8.9. NG tube in place. Family at bedside. patient transferred to SICU for close monitoring. 11/25/23--patient is currently in the ICU, required Levophed overnight due to low blood pressure, low urine output with creatinine trending up. Nephrology following. Wireless Retail Manager also following. Patient remains n.p.o., NG tube in place, following NG tube insertion patient had total of 2 L output, J-tube was draining approximately 200 cc over last 8 hours, continues to have abdominal pain and abdominal tenderness. Patient on IV fluids. Currently on 4 L oxygen. WBCs 8.2, hemoglobin 12.3, platelet 188. Chest x-ray earlier today showed right sided port and a stable left lung airspace disease, NG tube in place. Patient currently on Zosyn, on IV Dilaudid for pain control, on IV Solu-Medrol. General surgery planning for OR today, started on TPN. 11/26/23--patient was seen and examined today. Patient is currently sedated, intubated on mechanical ventilation. Family at bedside. Patient underwent ex lap, abdominal washout, small bowel resection with new feeding jejunostomy tube placement yesterday, small bowel was noted to be perforated with significant contamination of abdominal cavity. Patient is currently on vancomycin and Zosyn. Creatinine went up to 2.85, nephrology following, recommended to continue IV fluids, avoid nephrotoxin Preserved EF on echocardiogram.. Patient currently on Levophed, vasopressin in the ICU for close monitoring. Patient is afebrile, heart rate 122, blood pressure 129/76, currently on mechanical ventilation, sedated. November 26: ICU. Intubated. FiO2 60 and a PEEP of 5. Drips include IV amiodarone. Heart rate was up early did get fired microgram of IV digoxin and 2.5 mg of IV Lopressor. Did drop her blood pressure bit. Urine output was low. Received 80 mg of IV Lasix. Ahmet to 150 cc. Other drips include IV propofol, vasopressin, Levophed. TPN was started yesterday. Antibiotics include IV Zosyn and vancomycin. Patient has a J-tube to drainage to gravity. Spoke to patient's younger daughter and at the bedside. Prognosis guarded. Continue current treatment plan. Chest x-ray shows right lower lobe consolidation. Small pleural effusion. November 27: ICU. Intubated. FiO2 55 and a PEEP of 5. Antibiotics include IV vancomycin. Drips include Levophed at a small dose, IV vasopressin, propofol, amiodarone. Patient converted to sinus rhythm this morning. Getting TPN and normal saline at 75 cc an hour. Urine output about 25 cc an hour. RAYA drain put out about 260 cc last 12 hours that is last wind commissioning technician. NG tube with bilious output. And also GI J-tube output to gravity. Spoke to patient's and daughter at the bedside. They understand patient still not out of the kee. Platelets have dropped-therefore probably Zosyn stopped. November 28: ICU. Intubated. FiO2 55 and a PEEP of 5. Patient is in sinus rhythm. Seen this morning. Due for dialysis catheter this afternoon. Urine output about 15 to 20 cc an hour. Patient is on IV Lasix 80 mg every 12. Saline is KVO. Drips include IV propofol vasopressin. Patient having significant output through the RAYA drain and the jejunostomy tube to drainage. Creatinine had been getting worse. Patient's at the bedside. Understands patient's remains critically ill. Hemoglobin is down to 7. Given that patient's pain hypotensive, and on vasopressin we will give a unit of blood with dialysis. Getting TPN antibiotic changed to IV meropenem November 29: ICU. Intubated. FiO2 55 and a PEEP of 5. Remains in sinus rhythm. Getting TPN. Dialyzed yesterday and this morning. About 1000 cc removed. Urine output about 50 cc an hour. Patient is on IV propofol. Off vasopressin. Still having significant output through the RAYA drain and jejunostomy tube. Patient received a second unit of blood yesterday. Patient's and daughter at the bedside. I did discuss guarded prognosis. Did asked them to revisit CODE STATUS.. Getting IV meropenem. November 30: ICU. Intubated. Did get a sedation holiday t today. Back on propofol. Getting TPN. Still getting IV Lasix. Fair urine output. Jejunostomy tube in last 8 hours was about 30 cc output. RAYA drain in the 8 hours had about 180 cc output. Telemetry shows sinus rhythm. NG tube has low intermittent suction with negative output. On the vent with FiO2 40 and a PEEP of 5. No hemodialysis today. Discussed with the and eldest daughter at the bedside. IV meropenem-patient's sputum had grown Citrobacter freundii and Pseudomonas aeruginosa. December 01: ICU. Intubated. Jejunostomy tube to gravity. Only 10 cc output in last 24 hours. RAYA drain. About 190 cc last 6 hours. Nasogastric tube to low intermittent suction. Minimal output. Patient is on a small dose of propofol 5 mics. Telemetry shows sinus rhythm. Patient started on small dose of Cleviprex this morning. Blood pressure. Getting TPN. FiO2 35 and PEEP of 5. Discussed with the at the bedside. Hemodialysis today December 02: ICU. Patient remains intubated. FiO2 35 PEEP of 5. Patient is on IV propofol. IV Cleviprex was discontinued yesterday. Also remains on TPN. Telemetry shows sinus rhythm. NG tube is good no output. Still significant output through the RAYA drain. Jejunostomy tube has minimal output. Patient had hemodialysis today 2 L of fluid was removed. Oral half liters yesterday. Patient getting a sedation holiday. General Surgery started the patient on trickle feeding at 10 cc an hour. I did speak to patient's at the bedside. Prognosis remains guarded but there is some improvement. December 03: ICU. Intubated. FiO2 35 PEEP of 5. Drips include IV propofol and Precedex. Getting TPN. Telemetry shows sinus rhythm. Remains on IV Lasix 80 mg twice a day. IV meropenem. Because patient gets easily agitated when transitioning off propofol he has been switched over to Precedex. For hemodialysis today. December 04: ICU. Intubated. FiO2 35 and a PEEP of 5. Patient been taken off propofol is on Precedex. Telemetry sinus rhythm. J-tube with minimal output. RAYA drain with decreased output. NG tube to suction minimal output. Family wanted to hold off trickle feeding until cleared by oncology. Which he did today. Trickle feeding will be started today. Spoke to patient's and one of the daughters at the bedside. Dr. Russ is spoken to the earlier this point they want to do further tracheostomy tube. October 4: ICU. Intubated. FiO2 35 PEEP of 5. Patient remains on Precedex and PPN. Patient's dialysis catheter was not functioning is getting another [address] Bobby this afternoon. Remains on IV meropenem. Has a RAYA drain in the jejunostomy tube to gravity. NG tube to low intermittent suction. No family at the bedside. December 06: ICU. Intubated. FiO2 35 PEEP of 5. RAYA drain putting out about approximately 120 cc per shift. Patient on IV Precedex. FiO2 35 PEEP of 5. Telemetry-sinus rhythm. Patient occasionally been put on small dose of Levophed specially for hemodialysis getting it today. Also started on midodrine for low blood pressure. Tolerating tube feeding at 10 cc an hour. Also had a bowel movement. Mentation has not improved. Even with sedation holiday. Neurology consulted. CT brain shows no acute process. December 07: ICU. Intubated. FiO2 35 PEEP of 5. Telemetry-sinus rhythm. NG tube to suction low intermittent minimal output. Getting TPN. Tube feeding at 20 cc an hour. RAYA drain averaging over 100 cc per shift. Remains on Precedex. EEG was done today. Discussed with at the bedside. Family is currently not inclined for tracheostomy tube today. Day 13 of being intubated December 08: ICU. Intubated. FiO2 35 PEEP of 5. Patient is put on back on propofol per cotton roll packer Dr. JIMENEZ. EEG did show some potential for spikes was put on Keppra by neurology. Telemetry shows sinus rhythm. NG tube to suction with no output. Tube feeding was put on hold because of questionable discharge on the site. Being restarted today. RAYA drain is 150 cc last 12-hour shift. Patient does open eyes. Family has decided to proceed with tracheostomy and surgery has been consulted for the same. Spoke to the at the bedside. For hemodialysis today. December 09: ICU. Intubated FiO2 35 PEEP of 5. Patient seen this morning. Pending tracheostomy placement this afternoon. Remains NPO. G-tube feeding was held overnight. RAYA drain putting out about 100 cc per shift. Received a unit of blood for hemoglobin of 6.6. On 25 mics of propofol. Getting TPN and meropenem. Spoke to the at the bedside. Patient became hypotensive with dialysis yesterday. Levophed had to be given. Only 800 cc were removed yesterday. No hemodialysis today. December 10: ICU . FiO2 35, PEEP 5. Tracheostomy was done yesterday by Dr. Ewing. G-tube feeding was started today at 10 cc an hour. Dietitian following. RAYA drain 12-hour shift overnight put out about 30 cc. Patient hemodialysis today about 1 L removed. Patient has a sacral stage II decub with a dressing. On propofol 20 mics. Spoke to at the bedside. TPN. Meropenem was discontinued yesterday. December 11: ICU. FiO2 35 PEEP of 5. Tracheostomy. NG tube was discontinued. No hemodialysis today. Telemetry shows sinus rhythm. J-tube feeding at 40 cc an hour. TPN was discontinued. Patient has been off propofol also. PICC line in place. Patient had a EEG done today. Spoke to patient's elder daughter at the bedside. May open eyes occasionally. Not really following commands December 12: 73-year-old white male with history of chronic abdominal pain for the last 8 months has been treated with Protonix 40 mg daily for the last 3 months with no improvement. Patient had a 22 pound weight loss in the last [address] of the abdomen and pelvis 3 weeks ago showed thickening of the antral wall with pathological adenopathy posterior to the stomach suspicious of neoplasm. Today the patient underwent elective upper endoscopy to evaluate further, patient received IV sedation by anesthesia endoscope was inserted into the mouth, esophagus was intubated without any difficulty there was evidence of large amount of liquid and solid food noted in the stomach suggestive of gastric outlet obstruction. Scope could not be advanced through the pylorus, however in the prepyloric area there was a large superficial ulceration identified with multiple biopsies were done from this area. The body cardia and fundus could not adequately visualize because of large amount of retained food in the s tomach. Scope was withdrawn back to the stomach and upon careful examination the mucosa of the antrum body and cardia as well as the fundus appeared normal. Procedure was being performed and biopsies were done patient threw up and subsequently became hypoxic there was clearly evidence of witnessed aspiration anesthesia intubated the patient, procedure was terminated, and the patient was transferred to the ICU, this consult was initiated. Patient is now on assist- control rate of 20 tidal volume 500 FiO2 70% PEEP of 10 ABG is pending, earlier ABG showed profound hypoxia patient is on propofol at 50 mcg/kg/min, next ABG is pending. Chest x-ray showed chronic changes without evidence of acute pulmonary disease. 12/14/2023 Patient remains in the ICU, generally weak Patient s/p tracheostomy G-tube in place Patient still has fever and mild tachycardia but tachycardia is improving, leukocytosis improving as well. Hemoglobin 8.1. Creatinine 3.0 and nephrology team on the case. He has mild transaminitis. He was getting Zosyn which is held now, nowCalcitonin is pending 12/14 Patient shon in the ICU, he is still encephalopathic and does not follow command. Neurology service following closely. He is status post tracheostomy. Also J-tube His abdomen looks soft and on exam he has mild coarse secretions. Has a Abarca catheter with clear urine His pro- Calcitonin is still high but trending down 3.0 down to 1.9 No fever this morning WBC slightly less at 16.3 Patient currently off antibiotic He is getting steroids IV Solu-Medrol which might contribute to his leukocytosis. Also he is on IV Keppra by neurologist 12/14 Patient remains confused in the ICU calm, he had a good night per family member and staff. Tracheostomy in place Patient has occasional coughing spells, patient also developed some partial wound dehiscence in his abdomen, surgery team are aware and are going to evaluate the patient Patient also has positive blood culture from 12/13: Gram-positive cocci in clusters. Patient received one-time dose of IV vancomycin. Patient also had fever 2 days ago, leukocytosis and total elevated pro- Calcitonin. Therefore we are going to consult infectious disease team. As his antibiotic Zosyn was stopped few days ago. Currently patient KVO He has good urine output December 16: ICU. Trach. Congested. Requiring suctioning. No hemodialysis today. Getting G-tube feeding at 50 cc an hour. FiO2 30 and a PEEP of 5. On IV Precedex. Eyes open. Does follow commands. Weakness in the limbs. Spoke to at the bedside. Sputum positive for Klebsiella oxytoca and Pseudomonas aeruginosa. December 17: ICU. On trach. Currently cough with increased secretions requiring suctioning. Adding scopolamine patch. Very much clear secretion. CT scan is showing right upper lobe lung abscess. G-tube feeding at 50 cc an hour. Hemodialysis today. RAYA drain putting out about 140 cc a shift. Serous. Has been midline incision wound dehiscence. Wound VAC was placed on it. Stage II ulcer. Patient is on Precedex drip 0.15 mics. Urine output is good about 6200 cc an hour. Spoke to the at the bedside. Patient currently not stable for transfer to LTAC. No limb movements. PT OT on the case. otherwise awake does follow simple commands by face December 18: ICU. Patient seen this afternoon. Because of pain getting IV Dilaudid. No nasal cannula on room air. Does move about his head. Telemetry shows sinus rhythm. FiO2 30 and a PEEP of 5. Patient started on scopolamine patch yesterday has decreased secretions today. Good urine output. Tube feeding at 60 cc an hour. Wound VAC on incisional would be high since in place. RAYA drain continues to make output. No hemodialysis today December 19: ICU. Patient was seen earlier today. FiO2 30 and a PEEP of 5. Sinus rhythm. Awake. Does follow with eyes. Tube feeding got obstructed tube feedings held for now. Increasing oozing from the incision drainage site. at the bedside. Wound VAC remains in place. Good urine output. Dialysis held today. December 20: ICU. Per nephrology no dialysis today. 1 L fluid bolus given. J- tube was replaced over the wire by Dr. Ewing from surgery. On Precedex 0.6 mcg. FiO2 30 and a PEEP of 5 on the vent. RAYA drain putting out of around 100 cc per shift. at the bedside. Drainage through the abdominal incision wound. CT scan abdomen showed tube placement in the small bowel. Stable large right lower quadrant mass with a fluid level. December 21: ICU. No dialysis today. Patient started on trickle feeding through the J-tube yesterday. He started leaking around the J-tube site. Tube feeding was held. Dressings were placed. Wound VAC remains on the incision. Still having output through the RAYA drain. Patient remains on Precedex 0.4 mcg. FiO2 30 and a PEEP of 5. Sinus rhythm. at the bedside. December 22: ICU. Patient was seen this morning today by me. No dialysis today. Patient's and daughter at the bedside. FiO2 30 and a PEEP of 5. Sinus rhythm. Still having significant secretions through the tracheostomy tube. On Precedex 0.4 mcg. Getting D5W IV fluids. Tube feeding remains to be on hold since yesterday. Still output of RAYA drain. Awaiting input from surgery. Discussed with the and daughter. December 23: ICU. Saw the patient this afternoon. Because of good output of urine dialysis has been discontinued. Telemetry shows sinus rhythm. FiO2 30 and a PEEP of 5. RAYA output has been around 8200 cc an hour. Good urine output. Patient does have very slight movement of the limbs. Wound VAC is putting out about 20 cc per shift. Yesterday when trickle feeding was started patient's J- tube drainage also started leaking around the insertion site. Tube feeding was held. Patient remains on IV Zosyn and Precedex at 0.3 mcg. I had a very lengthy discussion with patient's daughter and at the bedside overall guarded prognosis. Later surgery spoke to the family, and then the nurse called me that family was wanting transferred to [facility]. I spoke to Dr. Irby. They felt they could not offer anything more at this point. I did call the [facility] transfer seafood team member. Gave them the reason for transfer. Later in the ICU nurse informed me through [employer] that [facility] had declined the transfer. Total time spent today about 50 minutes with over 30 minutes of discussion. December 24: ICU. Patient is doing not too well. Sinus rhythm. Drips include norepinephrine and IV propofol. Surgery did put 2 stitches around the J-tube insertion site. Started on TPN today. FiO2 30 PEEP of 5. Patient became hypothermic put on a Manjit hugger. Also hypoglycemic. Decreased urine output. IV fluids increased. Patient's son was at the bedside. I did speak to patient's eldest daughter outside in the waiting room. Did tell the patient doing very poorly. I did try to call the on the phone number she has gone home. Started an IV antifungal today. December 26, 2023 73-year-old white male with history of chronic abdominal pain for the last 8 months has been treated with Protonix 40 mg daily for the last 3 months with no improvement. Patient had a 22 pound weight loss in the last [address] of the abdomen and pelvis 3 weeks ago showed thickening of the antral wall with pathological adenopathy posterior to the stomach suspicious of neoplasm. Today the patient underwent elective upper endoscopy to evaluate further, patient received IV sedation by anesthesia endoscope was inserted into the mouth, esophagus was intubated without any difficulty there was evidence of large amount of liquid and solid food noted in the stomach suggestive of gastric outlet obstruction. Scope could not be advanced through the pylorus, however in the prepyloric area there was a large superficial ulceration identified with multiple biopsies were done from this area. The body cardia and fundus could not adequately visualize because of large amount of retained food in the stomach. Scope was withdrawn back to the stomach and upon careful examination the mucosa of the antrum body and cardia as well as the fundus appeared normal. Procedure was being performed and biopsies were done patient threw up and subsequently became hypoxic there was clearly evidence of witnessed aspiration anesthesia intubated the patient, procedure was terminated, and the patient was transferred to the ICU, this consult was initiated. Patient is now on assist- control rate of 20 tidal volume 500 FiO2 70% PEEP of 10 ABG is pending, earlier ABG showed profound hypoxia patient is on propofol at 50 mcg/kg/min, next ABG is pending. Chest x-ray showed chronic changes without evidence of acute pulmonary disease. 12/27/2023 Patient is seen and evaluated with family at bedside; remains in the ICU intubated and mechanically ventilated. - ABG showed a pO2 of 99 pCO2 31 pH of 7.44. -- Remains on Eraxis daptomycin and Zosyn patient is intermittently requiring Dilaudid, Ativan does not seem to help his agitation and restlessness. -- Continues to have leakage around the jejunostomy tube, and patient is undergoing the J-tube exchange today. Family is at bedside, seems to be quite anxious about his overall condition, and I explained to the that we are doing the best we can considering his critical illness situation and critical illness polyneuropathy. Patient is profoundly weak, and weaning the patient from mechanical ventilation is almost impossible. At least not at this point yet WBC count is 10.9 hemoglobin is 8.1 basic metabolic profile is normal BUN is 46 creatinine 1.90 patient has been off hemodialysis since the . Chest x- ray continues to show stable findings with right upper lobe opacity and right lower lobe opacity and possibly a small right-sided pleural effusion ----Continue ventilatory support, now on IMV mode rate of 16 with pressure support of 14 Continue Precedex and use Dilaudid 0.5 mg every 2-3 hours as needed. Nutritional support patient is now on TPN, Possible J-tube changed today for J- tube malfunction Continue antibiotics including daptomycin and Zosyn, Eraxis was added by infectious disease 12/28/2023 the patient is seen and evaluated in room at bedside; continues to be afebrile, the patient is on the ventilator through the trach FiO2 is currently stable at 30% no significant pleural effusion clinically patient on requiring any pressor support still having drainage around his jejunostomy tube patient dialysis catheter has been discontinued. Patient white count normalized to 7.6, creatinine is 1.51 patient with pneumonia with a sputum showing Citrobacter and Pseudomonas aeruginosa, the patient sputum repeat is still growing Citrobacter and Pseudomonas sensitive to the Pseudomonas is pending continue with Zosyn -patient did have a positive blood culture with staph epi that was oxacillin resistant as the patient did have a PICC line and the dialysis catheter he is on daptomycin repeat blood culture currently growing oxacillin sensitive staph epi, the patient dialysis catheter has been discontinued Has been sent for the culture -patient also have significant excoriation around his jejunostomy tube site which is still leaking Eraxis was added which will be continued as the patient fever pattern has improved and the patient white count has normalized once again discussed with the nursing staff to apply Triad cream which was discussed yesterday but not applied and monitor clinical course closely 12/29/2023 Patient is seen and evaluated with family members at bedside; remains intubated and mechanically ventilated -- ABG showed a pO2 of 105 pCO2 31 pH of 7.45. Remains on Precedex; multiple antibiotics and antifungal including Eraxis daptomycin and Zosyn. -- chest x-ray is showing improvement in his right upper lobe airspace disease/pulmonary abscess. Right lower lobe seems about the same with chronic opacity and possibly some small right-sided pleural effusion. --Family is at bedside, patient is arousable but does not follow any instructions. Gets extremely restless and agitated easily hence patient is receiving Dilaudid which seems to be working much better for this patient than benzodiazepines --possibly transfer the patient to a select care specialty. 12/30/2023 Evaluated in follow-up in the intensive care unit. He remains on the mechanical ventilator. Status post tracheostomy. There has been a decrease in the amount of leakage around the J-tube site he continues on a gravity flow. TPN is infusing tube feedings remain on hold at this time. No bowel movement reported for the last 5 days. X-ray today reveals extensive pleural parenchymal opacities throughout the right with at least a moderate pleural effusion. Mild patchy densities left mid and lower lung are also similar. Blood work reveals a white blood cell count 11.5, hemoglobin 8.1, platelet count of 78, sodium 142, potassium 4.2, BUN of 42, creatinine of 1.22, Phos of 2.3, magnesium 1.9. Patient continues on IV anidulafungin IV Zerbaxa IV daptomycin. Patient is currently sedated with propofol and also Precedex which is currently on hold at this time. December 31, 2023: ICU. Patient continues to do poorly. On propofol 35 mics. Also getting IV Dilaudid and IV Ativan.. Telemetry shows sinus rhythm. J-tube feeding has been discontinued. Significant output through the Abarca bag and around the G-tube site. Patient also putting out through the RAYA drain on the right side. Getting TPN and lipids. Patient is antimicrobial include iv aniedulefungin, IV ceftolozane/tazobactam, IV daptomycin Advance care planning [October 31, 2023] I met with patient's at the bedside. Went through in detail with patient is overall very poor clinical status. Chances of any meaningful recovery next to minimal. I also did mention that patient in my opinion was not stable to go to chronic ventilator setting. I suggested comfort care/hospice. I did not feel and why all honesty that patient is benefiting any further from the treatment we are giving him in fact causing probably more suffering. I also spoke to patient's daughter outside in the waiting room. Total time spent about 50 minutes with over 30 minutes of discussion. Later I called Dr. Luther JIMENEZ the cotton roll packer after he received a text that family was expressing that some physician expressed he was doing better and giving hope. I spoke to nurse Lemos in the evening and she and Dr. JIMENEZ did go and talk to patient's family at the bedside later. January 01, 2024: ICU. FiO2 30 and a PEEP of 5. Continues to have increased drainage at the G-tube site. Wound VAC in place over the incision. RAYA drain continues to put out excretions. Good urine output. Drips include IV propofol at 20 mics, also getting IV Ativan and Dilaudid. Patient also keeping getting TPN lipids. Spoke to the patient's at the bedside. No further questions. I did speak to Dr. Irby from general surgery. Hence it is both our impression again that changing the tube will not make any difference to the bigger picture. And probably futile. Dr. Irby will be speaking to the family today. David from manager social did ask about of family meeting. I did reiterate that I spoken at length to the a few times and also the daughter. Dr. Jimenez also spoke to the and Dr. Irby will be speaking with the today. Prognosis remains to be very poor. I did tell the in my opinion probably the patient is not r a candidate for long-term facility. Will cotton roll packer Dr. Jimenez determine if the patient is a candidate for long-term chronic ventilator facility. January 02, 2024: ICU. FiO2 30 PEEP of 5. Telemetry sinus rhythm. Drips include propofol at 20 mics. Patient getting TPN lipids. Receiving 1 unit of packed red blood cell. Patient was having a breakdown around the tracheostomy stoma site. With a cuff leak. G-tube site is continues to have increasing output. Wound VAC in place. RAYA drains also having increasing output. Patient sister and daughter from [place] from out of town. Earlier they spoke at length with Dr. alford from general surgery. Prognosis remains poor. January 03, 2024: ICU. FiO2 30 PEEP of 5. On propofol. 50 mics. Getting TPN lipids. Sinus rhythm. Wound VAC in place. Drainage around the j-tube site. RAYA drain continues to drain. Patient somewhat sedated. at the bedside. Later manager social David inform me that the surgical team Dr. Irby has suggested possible you have [facility], to which family is trying to obtain transferred to. Per Dr. Jimenez note patient has been decline by long-term care twice. Prognosis remains poor. at the bedside. Had no questions. Brother Nathan is present. January 04, 2024: ICU. FiO2 30 PEEP of 5. Propofol was held this morning. Getting TPN lipids. Sinus rhythm. Wound VAC remains in place. Continues to have drainage around the J-tube. RAYA drain continues to have output. at the bedside. She had no questions. Antibiotics in place. January 05, 2024: ICU. FiO2 30 PEEP of 5. Audibly sounding congested. Getting TPN lipids. Sinus rhythm. Wound VAC in place. Drainage around J-tube site. RAYA output continues. No family at bedside. Getting antibiotics. Lethargic January 06, 2024: ICU. FiO2 30 PEEP of 5. Patient is been off propofol since yesterday. Does move his head about. Try to open his eyes sometimes. Sinus rhythm. Blood pressure is running high yesterday. Started on Cleviprex. Hydralazine is being added. Continue to get TPN lipids. J-tube site remains excoriated. Wound VAC in place. RAYA output about 40 to 50 cc is a 12-hour shift. Patient elder daughter at the bedside. Eraxis was discontinued on January 02. Daptomycin is being discontinued by ID. Continue ceftolo'szone. CT abdomen pelvis done today: 3.1 cm organized fluid collection within the rectovesicular space concerning for abscess. No change in right upper lung 4.9 cm fluid collection with a fluid level. For possible pulmonary abscess. Moderate size right lung base multiloculated hydropneumothorax possibly abscess. Additional areas of air bronchograms. January 07, 2024: ICU. FiO2 30 PEEP of 5. Patient was taken down for pigtail drainage of the right lung abscess. About 200 cc of pus was obtained. Nurse informed me when they told him about for the procedure a lot of pus gushed out from the tracheostomy site. Dr. Love at the bedside did a bronchoscopy. Some pus was aspirated. No obvious fistula was noted. Patient is being back on Cleviprex drip. TPN lipids. January 08, 2024: ICU. Patient was having severe bouts of coughing. Unable to maintain ventilation. Patient was put on Nimbex drip and propofol drip. TPN lipids continue. Has a right chest wall pigtail catheter 90 cc output in 12- hour shift. Drainage from around the J-tube site. RAYA drain continues Ahmet to have an output. Abdominal wound is high since with the wound VAC in place. Patient sedated. January 09, 2024: ICU. Patient is off propofol and Cleviprex. Does open eyes. RAYA drain. About 40 cc last 24 hours. J-tube site continues to have increased output. Requiring dressing change every so often. Wound VAC in place. Patient getting Dilaudid and Ativan. Telemetry shows sinus rhythm. 40 cc out of the pigtail drainage. Patient started on ciprofloxacin and tobramycin. Remains on TPN and lipids. Patient's eldest daughter and at the bedside. No new questions. January 10, 2024: ICU. Overnight patient had become asynchronous. Had to be put on Precedex drip. Hemoglobin dropped down to 6.6. Monitor blood ordered. RAYA output about 100 cc last 24 hours. Wound VAC remains in place. TPN lipid continues. Patient also has a leak in the right pigtail catheter. Sinus rhythm. Continues to have increased secretion at the G-tube site. Ventilator FiO2 30 and a PEEP of 5. at the bedside. Had no further questions. Active Medications Acetaminophen (Acetaminophen Suppository 650 Mg Supp) 650 mg RECTAL Q6HR PRN PRN Reason: Fever Albuterol/Ipratropium (Ipratropium-Albuterol 3 Ml Neb) 3 ml INHALATION RT-QID COUNTS INCLUDE 234 BEDS AT THE [facility] Last Admin: 01/10/24 16:17 Dose: 3 ml Albuterol/Ipratropium (Ipratropium-Albuterol 3 Ml Neb) 3 ml INHALATION RT-Q2H PRN PRN Reason: Shortness Of Breath Or Wheezing Last Admin: 01/08/24 04:01 Dose: 3 ml Bisacodyl (Bisacodyl 10 Mg Supp) 10 mg RECTAL DAILY COUNTS INCLUDE 234 BEDS AT THE [facility] Last Admin: 01/10/24 08:11 Dose: 10 mg Chlorhexidine Gluconate (Chlorhexidine Gluconate 15 Ml Cup) 15 ml MUCOUS MEM BID COUNTS INCLUDE 234 BEDS AT THE [facility] Last Admin: 01/10/24 08:10 Dose: 15 ml Dextrose/Water (Dextrose 50% Syringe 50 Ml) 25 ml IVP PER PROTOCOL PRN; Jasen col PRN Reason: Hypoglycemia Last Admin: 01/03/24 06:18 Dose: 25 ml Dextrose/Water (Dextrose 50% Syringe 50 Ml) 50 ml IVP PER PROTOCOL PRN; Protocol PRN Reason: Hypoglycemia Last Admin: 12/25/23 18:03 Dose: 50 ml Hydralazine HCl (Hydralazine Hcl 20 Mg/Ml 1 Ml Vial) 10 mg IVP Q6HR PRN PRN Reason: SBP >140 Last Admin: 01/07/24 23:28 Dose: 10 mg Hydromorphone HCl (Hydromorphone 2 Mg/Ml 1 Ml Syringe) 1.5 mg IVP Q4H COUNTS INCLUDE 234 BEDS AT THE [facility] Last Admin: 01/10/24 17:48 Dose: 1.5 mg Clevidipine 25 mg/ IV Solution 50 mls @ 2 mls/hr IV .Q24H COUNTS INCLUDE 234 BEDS AT THE [facility]; Protocol Last Admin: 01/10/24 17:49 Dose: Not Given Propofol 1,000 mg/ IV Solution 100 mls @ 8.757 mls/hr IV .[id number] COUNTS INCLUDE 234 BEDS AT THE [facility]; Protocol Last Titration: 01/09/24 08:00 Dose: 0 mcg/kg/min, 0 mls/hr Cisatracurium Besylate 200 mg/ (Sodium Chloride) 200 mls @ 5.838 mls/hr IV .Q24H COUNTS INCLUDE 234 BEDS AT THE [facility]; Protocol Last Admin: 01/10/24 17:49 Dose: Not Given Fat Emulsion Intravenous 250 (ml/ IV Solution) 250 mls @ 21 mls/hr IV TuThSa@0900 COUNTS INCLUDE 234 BEDS AT THE [facility] Last Admin: 01/09/24 14:23 Dose: 21 mls/hr Parenteral Vitamin Supplement 10 ml/ Zinc/Copper/Manganese/Selenium 1 ml/ Sodium Acetate 48 meq/ Magnesium Sulfate 1.5 gm/ Calcium Gluconate 1 gm/Potassium Phosphate 18 mmol/Potassium Acetate 20 meq/Amino Acids/Dextrose 2,064 mls @ 90 mls/hr IV .[id number] COUNTS INCLUDE 234 BEDS AT THE [facility] Stop: 01/11/24 00:59 Last Admin: 01/10/24 01:38 Dose: 90 mls/hr Ciprofloxacin/Dextrose 400 mg/ (IV Solution) 200 mls @ 200 mls/hr IVPB Q8H COUNTS INCLUDE 234 BEDS AT THE [facility] Last Admin: 01/10/24 16:30 Dose: 200 mls/hr Dexmedetomidine HCl 400 mcg/ (IV Solution) 100 mls @ 5.2 mls/hr IV .[id number] COUNTS INCLUDE 234 BEDS AT THE [facility]; Protocol Last Admin: 01/10/24 17:56 Dose: 0.7 mcg/kg/hr, 18.2 mls/hr Tobramycin Sulfate 600 mg/ (Sodium Chloride) 115 mls @ 115 mls/hr IVPB Q48H COUNTS INCLUDE 234 BEDS AT THE [facility] Parenteral Vitamin Supplement 10 ml/ Zinc/Copper/Manganese/Selenium 1 ml/ Sodium Acetate 48 meq/ Magnesium Sulfate 2 gm / Calcium Gluconate 1 gm/Potassium Phosphate 24 mmol/Potassium Acetate 20 meq/Amino Acids/Dextrose 2,067 mls @ 90 mls/hr IV .[id number] COUNTS INCLUDE 234 BEDS AT THE [facility] Insulin Aspart (Insulin Aspart (Novolog) 100 Unit/Ml Vial) 0 unit SQ 0000,0600,1200,1800 COUNTS INCLUDE 234 BEDS AT THE [facility]; Protocol Last Admin: 01/10/24 17:58 Dose: 4 unit Levetiracetam (Levetiracetam Iv 500 Mg/5 Ml Vial) 250 mg IVP Q24HR NIRMAL Last Admin: 01/10/24 08:10 Dose: 250 mg Lorazepam (Lorazepam 2 Mg/Ml Inj) 1 mg IV Q6HR PRN PRN Reason: Agitation Last Admin: 01/10/24 18:51 Dose: 1 mg Miscellaneous Information (Potassium Replacement Protocol 1 Each Misc) 1 each MISCELLANE DAILY PRN; Protocol PRN Reason: Per Protocol Miscellaneous Information (Magnesium Replacement Protocol 1 Each Misc) 1 each MISCELLANE DAILY PRN; Protocol PRN Reason: Per Protocol Miscellaneous Information (Phosphorus Replacement Protoco 1 Each Misc) 1 each MISCELLANE DAILY PRN; Protocol PRN Reason: Per Protocol Multi-Ingred Cream/Lotion/Oil/Oint (Hydrophilic Cream 180 Gm Tube) 1 applic TOPICAL BID NIRMAL; Protocol Last Admin: 01/10/24 08:16 Dose: 1 applic Multi-Ingredient Ointment (Zinc Oxide 20% Oint 28.4 Gm Tube) 1 applic TOPICAL BID PRN; Protocol PRN Reason: Skin Irritation Naloxone HCl (Naloxone 0.4 Mg/Ml 1 Ml Vial) 0.2 mg IV Q2M PRN PRN Reason: Opioid Reversal Pantoprazole Sodium (Pantoprazole 40 Mg/10 Ml Vial) 40 mg IVP BID COUNTS INCLUDE 234 BEDS AT THE [facility] Last Admin: 01/10/24 08:10 Dose: 40 mg Petrolatum (Zinc Oxide Paste (Z-Guard) 1 Applic) 1 applic TOPICAL BID NIRMAL; Protocol Last Admin: 01/09/24 20:15 Dose: Not Given Past medical history to include: GERD Social history: . No smoking. Physical examination: VITAL SIGNS: 98.2, 80, 22, 139 x 91, 98% on the ventilator GENERAL: Sedated getting TPN and lipids EYES: Pupils equal. Conjunctiva edouard l. HEENT: External appearance of nose and ears normal, tracheostomy-. NECK: JVD unable to assess; masses not palpable. HEART: First and second heart sounds are normal; edema, present LUNGS: Respiratory rate increased, decreased breath sounds right chest wall pigtail catheter ABDOMEN: Soft, some tenderness. Liver spleen not palpable, no masses palpable..jejunostomy tube-dressing in place, . RAYA drain. Incision with stitches with - wound VAC PSYCH: Unable to assess NEURO: Sedated INVESTIGATIONS, reviewed in the clinical context: January 09: White count 15.4 hemoglobin 6.7 platelets 188 January 08: White count 15.3 hemoglobin 7.3 platelets 176 potassium 3.6 creatinine 0.89 January 06: White count 11.4 hemoglobin 7.4 potassium 3.[address] abdomen pelvis [January 05]: 3.1 cm organized fluid collection within the rectovesicular space concerning for abscess. No change in right upper lung 4.9 cm fluid collection with a fluid level. For possible pulmonary abscess. Moderate size right lung base multiloculated hydropneumothorax possibly abscess. Additional areas of air bronchograms. January 05: White count 10.6 hemoglobin 7.6 platelets 111 sodium 137 potassium 3.5 BUN 44 creatinine 0.95 January 03: White count 13.4 hemoglobin 8.1 platelets 95 potassium 5.2 creatinine 1.1 albumin 1.8 Sputum culture [December 24] Citrobacter freundii, Pseudomonas aeruginosa Blood culture [December 24] Staphylococcus pettenkoferi December 24: White count 1.5 hemoglobin 8.2 platelets 106 potassium 3.8 BUN [address] chest abdomen without contrast [December 16] right upper lung cavitary lesion with air-fluid level in the posterior aspect and a larger cavitary lesion possibly within the lung parenchyma itself. Extending down towards the diaphragm additional airspace opacities in the left lung base. December 09: White count 26.1 hemoglobin 8.6 platelets 154 potassium 4.1 BUN 86 creatinine 3.31. Hemoglobin this morning was 6.6 prior to transfusion EEG-evidence of generalized cerebral dysfunction and sporadic intermittent higher amplitude sharply contoured waves mainly bifrontal. Showing cortical irritability. 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 Serosal fibrous adhesions. Viable margins. Sputum culture: [November 25]: Citrobacter freundii. Pseudomonas aeruginosa November 20: White count 14.4 hemoglobin 8.8 platelets 229 potassium 4.1 BUN [address] scan abdomen [November 19] possible small bowel obstruction Stool: C. difficile negative November 15: WBC 13 hemoglobin 7.7 platelets 248 potassium 4.3 creatinine 0.87 2D echo: EF 55 to 60%. Kidneys bladder: Unremarkable November 13: White count 12 hemoglobin 6.9 platelets 276 potassium 4.4 creatinine 1.21 magnesium 1.8 iron 6 TIBC 365% saturation 1.64 transferrin 261 ferritin 34.6 B12 569 folate 4.4 November 11: Creatinine 0.86 EGD: Large amount of retained solid liquid food noted in the stomach. Large superficial gastric antral ulceration involving most of the antrum extending into the pylorus causing pyloric stenosis. Biopsies were obtained. Chest x-ray film personally reviewed by me-scattered infiltrates Assessment plan: -Aspiration and gram-negative bacterial pneumonia a bilateral initially from retained gastric contents mostly food and liquids, causing acute hypoxic respiratory failure: On presentation: Subsequent bacterial pneumonia sputum culture November 25: Citrobacter freundii, Pseudomonas aeruginosa. December 13: Klebsiella oxytoca, Pseudomonas aeruginosa IV meropenem-, IV Zosyn.IV ceftolozane/tazobactam, IV daptomycin-all discontinued Currently getting IV ciprofloxacin and tobramycin -Patient became asynchronous with the ventilator. On Precedex drip -Breakdown of tracheostomy stoma site. Dressing in place Being followed by cotton roll packer -Sepsis with septicemia from above Patient received multiple antibiotics -Right l lung abscess, pigtail catheter placed January 07, 2024. Initially about 200 cc of pus obtained. During the procedure large amount of pus poured out of the tracheostomy site when patient was rolled on the left side. Status post bronchoscopy with some lavage on 01/07/2024 - lung abscess larger 1 on the right side-patient cultures are growing Pseudomonas and Klebsiella oxytoca: Slow to respond , Received other antibiotics. Currently on Levaquin and tobramycin -Acute pulmonary edema and fluid overload from hypoalbuminemic state and fluids from IV.:: Has been getting Lasix and dialysis: Both held -Altered mentation. Possibly encephalopathy. Could be delirium.: Not improving CT brain [December 06] nothing acute Neurology following EEG-evidence of generalized cerebral dysfunction and sporadic intermittent higher amplitude sharply contoured waves mainly bifrontal. Showing cortical irritability. Keppra was started on December 07 -Critical care poly- Pedro neuropathy: Slow to respond PT OT -Gallstones, asymptomatic -Small l bowel perforation at site of jejunostomy tube tip with balloon..: Portion of small bowel resected. On November 24. New J-tube was placed.- drainage to gravity:-Now discontinued December 19: J-tube blocked. J-tube replaced on December 20 over wire December 21: Leaking around the J-tube site. Feeding held December 23: J feeding was started yesterday evening but again started leaking increasingly around the J-tube site-feeding held again December 24: J-tube feeding has been held. Patient is currently having increased drainage from the J-tube site -Acute kidney injury. Possible ATN from hypotensive shock: Resolved Renal ultrasound unremarkable. Started on renal replacement therapy on November 28. Last hemodialysis on December 17. Being followed by an nephrology. Good urine output. -Nutrition Jejunostomy tube placed November [address] Ewing Received TPN-this was discontinued. TPN lipids restarted on December 24 -Lung abscess, not improving Antibiotics to continue. Pulmonary and ID following -Midline abdominal incision wound dehiscence Wound VAC placed -Acute recurrent atrial fibrillation-converted to sinus rhythm Received IV amiodarone. Cardiology following Lopressor -Acute hypoxic respiratory failure from aspiration pneumonia, status post ventilator assisted: Reintubated November 25. FiO2 35 PEEP of 5 Tracheostomy tube-by Dr. Zepeda on December 09 -Septic shock, recovered -Hypertension, recurrent Had received Cleviprex. Hydralazine added -Intermittent hypotension: Corrected Intermittent use of Levophed. 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 Also anemia of blood draw. Iron deficiency anemia Received total of 6 units of blood IV iron. -Severe thrombocytopenia. Would consider coagulation disorder secondary to in fection., In the setting of underlying lymphoma.: Fluctuating with infection Hematology following. -Acute blood loss anemia, -Sacral stage II decub ulcer Dressing in place -Hypokalemia, multiple causes -Hypoglycemia -GERD PPI -Acute diarrhea secondary to tube feeding.: Resolved C. difficile ruled out. -Large superficial gastric antral ulceration involving the gastric antrum extending into the pylorus with gastric outlet obstruction. 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 -Full code On Precedex. IV ciprofloxacin and IV tobramycin. TPN lipids. Prognosis remains poor. I spoke to Dr. Love he will discuss with the family over the weekend. Past Medical History Past Medical History: GERD/Reflux History of Any Multi-Drug Resistant Organisms: None Reported Past Surgical History: Heart Catheterization Additional Past Surgical History / Comment(s): colonsocopy,spinal injection, Past Anesthesia/Blood Transfusion Reactions: No Reported Reaction Past Psychological History: No Psychological Hx Reported Smoking Status: Never smoker Past Alcohol Use History: None Reported Past Drug Use History: None Reported
--- NOTE | 2024-01-10 21:25 | P.PN ---
Subjective Patient seen and evaluated at bedside. No new issues. Objective - Vital Signs Vital signs: Vital Signs Temp 98.2 F 01/10/24 16:00 Pulse 68 01/10/24 20:06 Resp 22 01/10/24 20:06 BP 108/89 01/10/24 19:00 Pulse Ox 97 01/10/24 19:00 FiO2 30 01/10/24 19:55 Intake & Output 01/10/24 01/10/24 01/11/24 06:59 18:59 06:59 Intake Total 1416.82 1626.047 95 Output Total 1603 913 70 Balance -186.18 713.047 25 Weight 100 kg Intake: IV 1337 1145 95 0.9 Normal Saline @ KVO 110 65 5 Fat Emulsion 20% 250 ml 147 In Empty Bag 1 bag @ 21 mls/hr IV TuThSa@0900 [facility] Rx#:[id number] TPN 1080 1080 90 Intake, IV Titration 79.82 181.047 Amount Dexmedetomidine/0.9% NaCl 79.82 181.047 (Pmx) 400 mcg In Empty Bag 1 bag @ 0.2 MCG/KG/HR 5.2 mls/hr IV .[id number] [facility] Rx#:[id number] Blood Product 300 Rc As-1 Unit 300 [id number] Output: Chest Tube Drainage 100 50 Chest Tube Right 100 50 Drainage 85 180 Medial Abdomen 0 Right Abdomen 85 180 Urine 1415 680 70 Stool 3 3 Other: Voiding Method Indwelling Catheter Indwelling Catheter # Bowel Movements 1 ABP, PAP, CO, CI - Last Documented Arterial Blood Pressure 173/76 - Exam gen: nad cv: rrr pul: non labored on vent abd: soft, non distended, wound vac intact, j tube continued drainage - Labs CBC & Chem 7: 01/10/24 04:51 01/10/24 04:32 Labs: Abnormal Lab Results - Last 24 Hours (Table) 01/09/24 01/10/24 01/10/24 Range/Units 23:47 04:32 04:32 WBC 14.4 H (3.8-10.6) k/uL RBC 2.22 L (4.30-5.90) m/uL Hgb 6.5 L* (13.0-17.5) gm/dL Hct 20.2 L (39.0-53.0) % RDW 18.6 H (11.5-15.5) % ABG pH (7.35-7.45) ABG pO2 (83-108) mmHg ABG HCO3 (21-25) mmol/L ABG Total CO2 (19-24) mmol/L ABG O2 Saturation (94-97) % Hemoglobin (13.0-17.5) gm/dL Sodium 135 L (137-145) mmol/L Potassium 3.3 L (3.5-5.1) mmol/L Chloride 110 H (98-107) mmol/L BUN 46 H (9-20) mg/dL Glucose 127 H (74-99) mg/dL POC Glucose (mg/dL) 210 H (70-110) mg/dL Calcium 7.2 L (8.4-10.2) mg/dL Phosphorus 1.7 L (2.5-4.5) mg/dL Crossmatch 01/10/24 01/10/24 01/10/24 Range/Units 04:51 05:25 05:38 WBC 15.4 H (3.8-10.6) k/uL RBC 2.29 L (4.30-5.90) m/uL Hgb 6.7 L* (13.0-17.5) gm/dL Hct 21.1 L (39.0-53.0) % RDW 18.3 H (11.5-15.5) % ABG pH 7.48 H (7.35-7.45) ABG pO2 80 L (83-108) mmHg ABG HCO3 26 H (21-25) mmol/L ABG Total CO2 27 H (19-24) mmol/L ABG O2 Saturation 97.2 H (94-97) % Hemoglobin 6.7 L* (13.0-17.5) gm/dL Sodium (137-145) mmol/L Potassium (3.5-5.1) mmol/L Chloride (98-107) mmol/L BUN (9-20) mg/dL Glucose (74-99) mg/dL POC Glucose (mg/dL) (70-110) mg/dL Calcium (8.4-10.2) mg/dL Phosphorus (2.5-4.5) mg/dL Crossmatch See Detail 01/10/24 01/10/2424 Range/Units 06:08 11:32 17:52 WBC (3.8-10.6) k/uL RBC (4.30-5.90) m/uL Hgb (13.0-17.5) gm/dL Hct (39.0-53.0) % RDW (11.5-15.5) % ABG pH (7.35-7.45) ABG pO2 (83-108) mmHg ABG HCO3 (21-25) mmol/L ABG Total CO2 (19-24) mmol/L ABG O2 Saturation (94-97) % Hemoglobin (13.0-17.5) gm/dL Sodium (137-145) mmol/L Potassium (3.5-5.1) mmol/L Chloride (98-107) mmol/L BUN (9-20) mg/dL Glucose (74-99) mg/dL POC Glucose (mg/dL) 172 H 122 H 213 H (70-110) mg/dL Calcium (8.4-10.2) mg/dL Phosphorus (2.5-4.5) mg/dL Crossmatch Microbiology - Last 24 Hours (Table) 01/07/24 12:15 Anaerobic Culture - Preliminary Pleural Fluid 01/07/24 12:15 Gram Stain - Preliminary Pleural Fluid Body Fluid Culture - Preliminary Pseudomonas aeruginosa Assessment and Plan Assessment: 1. 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 Status post J-tube placement and revision for small bowel obstruction 2. Abdominal wound dehiscence status post wound VAC placement 3. Status post tracheostomy PLAN: -At this time no plan to exchange J-tube, this was discussed further with the family. Concern is for dilating the fistula tract and having excessive output. Continue to monitor. -There is concern for increased output from around J-tube site with introduction of tube feeding. This was discussed in depth with family. Family would like to continue with TPN and lipids at this time. -Continue to hold tube feeds -Wound VAC scheduled to be changed Saturday/Saturday/Saturday -Continue TPN for nutrition support -Continue zinc barrier cream around J-tube Time with Patient: Less than 30
[2024-01-10 23:31] LABS: Glucose,Whole Blood 166 mg/dL (70-110)
[2024-01-11] MEDS: [UNRECOGNIZED DRUG - REMARK] IV SCH (01:00)
[2024-01-11 03:41] LABS: Anisocytosis Slight; HCT 25.5 % (39.0-53.0); Hypochromasia Slight; MCH 29.4 pg (25.0-35.0); MCHC 32.8 g/dL (31.0-37.0); MCV 89.7 fL (80.0-100.0); Mean Platelet Volume 8.6; Platelet Count 208 k/uL (150-450); Poikilocytosis Slight; RBC 2.85 m/uL (4.30-5.90); RDW 17.7 % (11.5-15.5); WBC 13.6 k/uL (3.8-10.6)
[2024-01-11 03:45] LABS: HGB 8.4 gm/dL (13.0-17.5)
[2024-01-11 03:55] LABS: ALT 30 U/L (4-49); AST 39 U/L (17-59); African American GFR (CKD) >90 (>60 ml/min/1.73 sqM); Alkaline Phosphatase 233 U/L (38-126); Anion Gap 4 mmol/L; Blood Urea Nitrogen 44 mg/dL (9-20); Calcium 7.2 mg/dL (8.4-10.2); Carbon Dioxide 22 mmol/L (22-30); Chloride 108 mmol/L (98-107); Glucose 162 mg/dL (74-99); Magnesium 1.8 mg/dL (1.6-2.3); Non-African American GFR(CKD) 88 (>60 ml/min/1.73 sqM); Phosphorus 3.3 mg/dL (2.5-4.5); Potassium 3.7 mmol/L (3.5-5.1); Sodium 134 mmol/L (137-145); Total Bilirubin 0.8 mg/dL (0.2-1.3)
[2024-01-11 04:05] LABS: Band Neutrophils % 13 %; Eosinophils # (M) 0.14 k/uL (0-0.7); Lymphocytes # (M) 2.86 k/uL (1.0-4.8); Metamyelocytes # (M) 1.22 k/uL (0); Metamyelocytes % 9 %; Monocytes # (M) 0.54 k/uL (0-1.0); Myelocytes # (M) 0.41 k/uL (0); Myelocytes % 3 %; Neutrophils % (M) 50 %; Nucleated Red Blood Cells 0 /100 WBC (0-0); Total Cells Counted 200
[2024-01-11] MEDS: POTASSIUM CHLORIDE 10 MEQ in WATER FOR INJECTION 1 100ML.BAG IVPB SCH (04:37)
[2024-01-11 05:23] LABS: Glucose,Whole Blood 206 mg/dL (70-110)
[2024-01-11 05:38] LABS: ABG Base Excess 1.2 mmol/L; ABG HCO3 25 mmol/L (21-25); ABG Oxygen Saturation 98.3 % (94-97); ABG PCO2 33 mmHg (35-45); ABG PH 7.48 (7.35-7.45); ABG PO2 93 mmHg (83-108); ABG TCO2 26 mmol/L (19-24); Allen Test Performed? Yes
--- NOTE | 2024-01-11 08:45 | P.PN ---
Subjective Patient is seen in follow-up for acute kidney injury. Patient underwent exploratory laparotomy with small bowel obstruction NG tube replacement Sep tember 2023. Nonoliguric. Started on hemodialysis November 29, 2023. Last dialysis December 18, 2023. Status post tracheostomy December 10, 2023. Renal function has improved and is back to baseline. Receiving TPN. Off vasopressors. Underwent drainage of lung abscess January 07, 2024. Hemoglobin improved post blood transfusion. Vital signs stable. General: Resting in bed. HEENT: Tracheostomy noted. LUNGS: Scattered rhonchi. Chest tube noted. HEART: Regular rate and rhythm. ABDOMEN: No drainage. EXTREMITITES: Trace edema. Objective - Vital Signs Vital signs: Vital Signs Temp 98.3 F 01/11/24 04:00 Pulse 66 01/11/24 08:17 Resp 21 01/11/24 07:00 BP 152/107 01/11/24 07:00 Pulse Ox 98 01/11/24 07:00 FiO2 30 01/11/24 08:16 Intake & Output 01/10/24 01/11/24 01/11/24 18:59 06:59 18:59 Intake Total 7010.223 3696.933 Output Total 913 1865 Balance 713.047 -60.067 Weight 101.4 kg Intake: IV 1145 1620 0.9 Normal Saline @ KVO 65 50 Ciprofloxacin/Dextrose 200 Pmx 400 mg In Dextrose/ Water 1 200ml.bag @ 200 mls/hr IVPB Q8H [facility] Rx#: [id number] Potassium Chloride 10 meq 200 In Water For Injection 1 100ml.bag @ 100 mls/hr IVPB Q1H [facility] Rx#: [id number] TPN 1080 1170 Intake, IV Titration 181.047 184.933 Amount Dexmedetomidine/0.9% NaCl 181.047 184.933 (Pmx) 400 mcg In Empty Bag 1 bag @ 0.2 MCG/KG/HR 5.2 mls/hr IV .[id number] [facility] Rx#:[id number] Blood Product 300 Rc As-1 Unit 300 [id number] Output: Chest Tube Drainage 50 40 Chest Tube Right 50 40 Drainage 180 380 Medial Abdomen 0 350 Right Abdomen 180 30 Urine 680 1445 Stool 3 Other: Voiding Method Indwelling Catheter Indwelling Catheter ABP, PAP, CO, CI - Last Documented Arterial Blood Pressure 173/76 - Labs CBC & Chem 7: 01/11/24 02:45 01/11/24 02:45 Labs: Abnormal Lab Results - Last 24 Hours (Table) 01/10/24 01/10/24 01/10/24 Range/Units 04:32 05:38 11:32 WBC (3.8-10.6) k/uL RBC (4.30-5.90) m/uL Hgb (13.0-17.5) gm/dL Hct (39.0-53.0) % RDW (11.5-15.5) % Neutrophils # (Manual) (1.3-7.7) k/uL Metamyelocytes # (Man) (0) k/uL Myelocytes # (Manual) (0) k/uL ABG pH (7.35-7.45) ABG pCO2 (35-45) mmHg ABG Total CO2 (19-24) mmol/L ABG O2 Saturation (94-97) % Hemoglobin (13.0-17.5) gm/dL Sodium 135 L (137-145) mmol/L Potassium 3.3 L (3.5-5.1) mmol/L Chloride 110 H (98-107) mmol/L BUN 46 H (9-20) mg/dL Glucose 127 H (74-99) mg/dL POC Glucose (mg/dL) 122 H (70-110) mg/dL Calcium 7.2 L (8.4-10.2) mg/dL Phosphorus 1.7 L (2.5-4.5) mg/dL Alkaline Phosphatase (38-126) U/L Total Protein (6.3-8.2) g/dL Albumin (3.5-5.0) g/dL Crossmatch See Detail 01/10/24 01/10/24 01/11/24 Range/Units 17:52 23:29 02:45 WBC (3.8-10.6) k/uL RBC (4.30-5.90) m/uL Hgb (13.0-17.5) gm/dL Hct (39.0-53.0) % RDW (11.5-15.5) % Neutrophils # (Manual) (1.3-7.7) k/uL Metamyelocytes # (Man) (0) k/uL Myelocytes # (Manual) (0) k/uL ABG pH (7.35-7.45) ABG pCO2 (35-45) mmHg ABG Total CO2 (19-24) mmol/L ABG O2 Saturation (94-97) % Hemoglobin (13.0-17.5) gm/dL Sodium 134 L (137-145) mmol/L Potassium (3.5-5.1) mmol/L Chloride 108 H (98-107) mmol/L BUN 44 H (9-20) mg/dL Glucose 162 H (74-99) mg/dL POC Glucose (mg/dL) 213 H 166 H (70-110) mg/dL Calcium 7.2 L (8.4-10.2) mg/dL Phosphorus (2.5-4.5) mg/dL Alkaline Phosphatase 233 H (38-126) U/L Total Protein 6.0 L (6.3-8.2) g/dL Albumin 2.0 L (3.5-5.0) g/dL Crossmatch 01/11/24 01/11/24 01/11/24 Range/Units 02:45 05:21 05:37 WBC 13.6 H (3.8-10.6) k/uL RBC 2.85 L (4.30-5.90) m/uL Hgb 8.4 L D (13.0-17.5) gm/dL Hct 25.5 L (39.0-53.0) % RDW 17.7 H (11.5-15.5) % Neutrophils # (Manual) 8.50 H (1.3-7.7) k/uL Metamyelocytes # (Man) 1.22 H (0) k/uL Myelocytes # (Manual) 0.41 H (0) k/uL ABG pH 7.48 H (7.35-7.45) ABG pCO2 33 L (35-45) mmHg ABG Total CO2 26 H (19-24) mmol/L ABG O2 Saturation 98.3 H (94-97) % Hemoglobin 8.3 L (13.0-17.5) gm/dL Sodium (137-145) mmol/L Potassium (3.5-5.1) mmol/L Chloride (98-107) mmol/L BUN (9-20) mg/dL Glucose (74-99) mg/dL POC Glucose (mg/dL) 206 H (70-110) mg/dL Calcium (8.4-10.2) mg/dL Phosphorus (2.5-4.5) mg/dL Alkaline Phosphatase (38-126) U/L Total Protein (6.3-8.2) g/dL Albumin (3.5-5.0) g/dL Crossmatch Assessment and Plan Plan: Assessment: 1. Acute kidney injury secondary to ATN secondary to septic shock. Creatinine 0.86 on admission and up to 5.38 dated November 29, 2023. Urine output improved, now nonoliguric. UA fairly benign. No hydronephrosis noted on imaging. Started on hemodialysis November 29, 2023 due to volume overload. Patient initially had a right femoral catheter placed which subsequently became occluded and a left tunneled femoral catheter was placed December 06, 2023. Renal function back to baseline. 2. Perforated small bowel status post exploratory laparotomy with abdominal washout, small bowel resection and J-tube replacement November 25, 2023. 3. A-fib with RVR. s/p amiodarone drip. Also received digoxin this admission. 4. Recently diagnosed gastric B-cell lymphoma. 5. Septic shock. Likely abdominal source. On IV antibiotics. Blood culture positive for staph. ID following. Dialysis catheter removed. 6. Hypocalcemia secondary to acute kidney injury. Replaced. Improved. 7. Metabolic acidosis secondary to acute kidney injury, TPN. 8. Volume overload. Improved with diuresis and ultrafiltration. 9. Status post tracheostomy December 10, 2023. 10. Anemia. Component of chronic illness and acute blood loss. Received blood transfusions and DDAVP this admission. 11. Respiratory and metabolic acidosis status post bicarb drip. ABG today suggestive of respiratory alkalosis. 12. Hypernatremia from lack of oral water intake. Status post D5W. Resolved. 13. Hypokalemia from poor intake. Being replaced. Plan: Last dialysis December 18, 2023. No further need at this time. Dialysis catheter removed December 28, 2023. Receiving TPN. Avoid nephrotoxins. Preserved EF noted on echocardiogram. Replace electrolytes as needed. Lasix as needed. Aranesp discontinued as patient does not have CKD.
--- NOTE | 2024-01-11 11:09 | XR ---
EXAMINATION TYPE: XR chest 1V portable DATE OF EXAM: 01/11/2024 COMPARISON: 01/10/2024 HISTORY: Mechanical ventilation TECHNIQUE: Single frontal view of the chest is obtained. FINDINGS: Tracheostomy tube, right pigtail drainage catheter, and right sided PICC All unchanged in position. The right lung infiltrates and pleural effusion and left lower lobe infiltrate are unchanged compared to the prior study. No definite pneumothorax. The osseous structures are intact IMPRESSION: Marked acute cardiopulmonary disease, right greater than left unchanged compared to prio r study. [facility], , 01/11/2024 11:06 AM
[2024-01-11 11:36] LABS: Glucose,Whole Blood 156 mg/dL (70-110)
--- NOTE | 2024-01-11 11:45 | P.PN ---
Progress Note - Text Progress Note Date: 01/11/24 Chief Complaint: On the ventilator This is a 73-year-old patient, follows with Dr. Patricia Deal. Patient was seen this morning in the ICU. Patient's and daughter at the bedside. History obtained predominantly by the . Patient been having trouble with his stomach symptoms for close to 8 months. Patient underwent EGD by Dr. Sahara Cheng yesterday. Patient was found to have ulcerated around the antrum and obstruction to the pylorus. A lot of retained food was found. Patient aspirated. Had to be intubated and brought to the ICU. On a Levophed drip. FiO2 50 and a PEEP of 6. Patient had been losing weight lost about 25 pounds. Previously has a history of mitral valve prolapse. November 13: ICU. Patient remains on Precedex drip and propofol drip. Did not do well attempted extubation yesterday. Patient been off Levophed. NG tube to suction. Spoke to patient's and son at the bedside. Biopsy results awaited. Hemoglobin dropped to 6.9 this morning. Get a unit of blood. November 14: ICU. Up in a chair. Extubated yesterday. NG tube to suction. at the bedside. 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 Oncology was consulted. They have ordered a port. Results discussed with Dr. Sahara Cheng. General surgery was consulted for J-tube placement. Discussed with at the bedside. Patient getting IV fluids, IV Zosyn,. Patient has been on IV amiodarone for A-fib-back in sinus rhythm. Multiple PACs. Did receive unit of blood yesterday. Also IV ferric gluconate. November 15: ICU. Patient earlier today underwent jejunostomy tube placement and a port placement. Patient awake. Answering questions. NG tube to suction present. Updated patient's . Patient remains on IV amiodarone and IV Zosyn. November 16: ICU. Up in the chair. NG tube present but not to suction. Trickle feeding through the jejunostomy tube should be started today. Dietitian has been on board. IV Zosyn to continue. Patient's and his sister at the bedside. Discussed. Also spoke with Dr. Serna. Given patient has no other predisposing cardiac factors for the A-fib except acute illness. His LV function is normal. Left atrium is normal. He has already been loaded with IV amiodarone. Will switch him to oral Lopressor 12.5 twice daily. Hence will DC amiodarone. Patient yesterday had wheezing was put on bronchodilators steroids per pulmonary. November 17: Propped up in bed. NG tube was discontinued. Sinus rhythm. Remains NPO. Getting G-tube feeding at 40 cc an hour. Dietitian following. Get arrangements done for DC home tomorrow including tube feeding. Increase activity discussed with patient and elder daughter at the bedside. Still requiring oxygen. Incentive spirometry. November 18: Patient up in recliner. Earlier today spoke to psychiatric social worker David. Informed patient is rather weak and [facility] Looking at authorization. Denae came to the room and spoke to patient his and his daughter. They are very keen to take the patient home as 3 daughters all nurses and they will take care of him at home. Patient earlier today to abdominal cramping and some loose stools.'s tube feeding was held. Told the nurse to start back at the rate of 40 cc an hour. He was before the getting it at 55 cc an hour. Incentive spirometry was again emphasized. Patient remains on 4 L of oxygen. November 19: I saw the patient this morning. Hence I am in the evening. Morning was sitting with his sons. Has some edema. Lungs had crackles I gave him 40 mg of Lasix. He did make good urine. Tube feeding was held from the p revious evening of because of abdominal cramping. Acute abdominal series showed nonspecific bowel gas pattern and SBO to be ruled out. Family and patient was updated. Told him discharge will depend on day by day. Later this afternoon CT scanAnd abdomen pelvis done. Showed small bowel to be 3 point centimeter dilated. Some anasarca. Gastric findings. Gallstones. Later spoke to Dr. Irby from general surgery. They will further review and decide about further plan of action. Will give further dose of IV Lasix because of fluid overload from likely hypoalbuminemia and IV fluids previously received. Patient may take his pills by mouth. Total time spent today about 1 hour with over 40 minutes of discussion. Patient did state his breathing is better after Lasix this morning. November 20: Saw the patient this morning. was present. Patient received 2 more doses of Lasix. Diuresed well. Breathing much better. Lungs are sounding better. Discussed with Dr. Zepeda other surgeon. He is taking 3 cc out of the balloon and the gastrostomy tube. Started trickle feeding at 5 cc an hour. Will see how this does. Later in the day ran into the and the daughter again. Did update them on the same. Dilaudid was discontinued yesterday but morphine was ordered by surgery for patient having pain. Concerns about GI issues with that we will DC the morphine. As family does not want the same. November 21: Patient reclining bed. Tired. Several family members at the bedside. Including his and eldest daughter. Patient started on trickle feed yesterday at 5 cc an hour. This morning he has been on 10 cc an hour. Still having some loose stools. C. difficile was ordered. Patient on 2 L of nasal cannula. Has diuresed well. Will give an additional dose of Lasix today. If C. difficile is negative and the diarrhea is from the tube feedings we may have to use a fecal management system to keep him comfortable. Otherwise patient remains NPO. Dietitian is following the patient. Care was discussed length with patient the and daughter at the bedside. Questions answered. Liquid Tylenol has been added for abdominal pain. Avoid narcotics. Elevated white count likely from Solu-Medrol 11/23/2023--patient was feeling better today. Multiple family member at bedside. No issues overnight. Normal saline at 10 cc an hour, tube feeding at 20 cc an hour, remains on Zosyn, on 3 L oxygen. Afebrile. Heart rate 62, respiratory rate 16, blood pressure 114/67, saturating 91% on 3 L. WBCs 14.5, 9.7 hemoglobin. Platelet 242. BMP is unremarkable. Pulmonary and general surgery following. General surgery recommended to continue tube feeds at 20 cc/h. 11/24/2023--patient reported significant abdominal discomfort, also noted to have leak around G-tube. General surgery is following, evaluated the patient at bedside, adjusted tube feeds. Also reported having diarrhea, on 2 L oxygen, went up to 5 L. Blood pressure was low, 500 mL fluid bolus with close monitoring of respiratory status ordered. Currently on DuoNebs, Solu-Medrol, will continue Zosyn. Chest x-ray showed a left lower lobe infiltrate. Abdominal x-ray showed multiple air-fluid levels. CT abdomen showed multiple dilated small bowel loops, consistent with obstruction, pneumoperitoneum, cholelithiasis and ascites. WBCs 14.1, platelet 255, hemoglobin 8.9. NG tube in place. Family at bedside. patient transferred to SICU for close monitoring. 11/25/23--patient is currently in the ICU, required Levophed overnight due to low blood pressure, low urine output with creatinine trending up. Nephrology following. Hydraulic Miner also following. Patient remains n.p.o., NG tube in place, following NG tube insertion patient had total of 2 L output, J-tube was draining approximately 200 cc over last 8 hours, continues to have abdominal pain and abdominal tenderness. Patient on IV fluids. Currently on 4 L oxygen. WBCs 8.2, hemoglobin 12.3, platelet 188. Chest x-ray earlier today showed right sided port and a stable left lung airspace disease, NG tube in place. Patient currently on Zosyn, on IV Dilaudid for pain control, on IV Solu-Medrol. General surgery planning for OR today, started on TPN. 11/26/23--patient was seen and examined today. Patient is currently sedated, intubated on mechanical ventilation. Family at bedside. Patient underwent ex lap, abdominal washout, small bowel resection with new feeding jejunostomy tube placement yesterday, small bowel was noted to be perforated with significant contamination of abdominal cavity. Patient is currently on vancomycin and Zosyn. Creatinine went up to 2.85, nephrology following, recommended to continue IV fluids, avoid nephrotoxin Preserved EF on echocardiogram.. Patient currently on Levophed, vasopressin in the ICU for close monitoring. Patient is afebrile, heart rate 122, blood pressure 129/76, currently on mechanical ventilation, sedated. November 26: ICU. Intubated. FiO2 60 and a PEEP of 5. Drips include IV amiodarone. Heart rate was up early did get fired microgram of IV digoxin and 2.5 mg of IV Lopressor. Did drop her blood pressure bit. Urine output was low. Received 80 mg of IV Lasix. Ahmet to 150 cc. Other drips include IV propofol, vasopressin, Levophed. TPN was started yesterday. Antibiotics include IV Zosyn and vancomycin. Patient has a J-tube to drainage to gravity. Spoke to patient's younger daughter and at the bedside. Prognosis guarded. Continue current treatment plan. Chest x-ray shows right lower lobe consolidation. Small pleural effusion. November 27: ICU. Intubated. FiO2 55 and a PEEP of 5. Antibiotics include IV vancomycin. Drips include Levophed at a small dose, IV vasopressin, propofol, amiodarone. Patient converted to sinus rhythm this morning. Getting TPN and normal saline at 75 cc an hour. Urine output about 25 cc an hour. RAYA drain put out about 260 cc last 12 hours that is last buckle assembler. NG tube with bilious output. And also GI J-tube output to gravity. Spoke to patient's and daughter at the bedside. They understand patient still not out of the kee. Platelets have dropped-therefore probably Zosyn stopped. November 28: ICU. Intubated. FiO2 55 and a PEEP of 5. Patient is in sinus rhythm. Seen this morning. Due for dialysis catheter this afternoon. Urine output about 15 to 20 cc an hour. Patient is on IV Lasix 80 mg every 12. Saline is KVO. Drips include IV propofol vasopressin. Patient having significant output through the RAYA drain and the jejunostomy tube to drainage. Creatinine had been getting worse. Patient's at the bedside. Understands patient's remains critically ill. Hemoglobin is down to 7. Given that patient's pain hypotensive, and on vasopressin we will give a unit of blood with dialysis. Getting TPN antibiotic changed to IV meropenem November 29: ICU. Intubated. FiO2 55 and a PEEP of 5. Remains in sinus rhythm. Getting TPN. Dialyzed yesterday and this morning. About 1000 cc removed. Urine output about 50 cc an hour. Patient is on IV propofol. Off vasopressin. Still having significant output through the RAYA drain and jejunostomy tube. Patient received a second unit of blood yesterday. Patient's and daughter at the bedside. I did discuss guarded prognosis. Did asked them to revisit CODE STATUS.. Getting IV meropenem. November 30: ICU. Intubated. Did get a sedation holiday t today. Back on propofol. Getting TPN. Still getting IV Lasix. Fair urine output. Jejunostomy tube in last 8 hours was about 30 cc output. RAYA drain in the 8 hours had about 180 cc output. Telemetry shows sinus rhythm. NG tube has low intermittent suction with negative output. On the vent with FiO2 40 and a PEEP of 5. No hemodialysis today. Discussed with the and eldest daughter at the bedside. IV meropenem-patient's sputum had grown Citrobacter freundii and Pseudomonas aeruginosa. December 01: ICU. Intubated. Jejunostomy tube to gravity. Only 10 cc output in last 24 hours. RAYA drain. About 190 cc last 6 hours. Nasogastric tube to low intermittent suction. Minimal output. Patient is on a small dose of propofol 5 mics. Telemetry shows sinus rhythm. Patient started on small dose of Cleviprex this morning. Blood pressure. Getting TPN. FiO2 35 and PEEP of 5. Discussed with the at the bedside. Hemodialysis today December 02: ICU. Patient remains intubated. FiO2 35 PEEP of 5. Patient is on IV propofol. IV Cleviprex was discontinued yesterday. Also remains on TPN. Telemetry shows sinus rhythm. NG tube is good no output. Still significant output through the RAYA drain. Jejunostomy tube has minimal output. Patient had hemodialysis today 2 L of fluid was removed. Oral half liters yesterday. Patient getting a sedation holiday. General Surgery started the patient on trickle feeding at 10 cc an hour. I did speak to patient's at the bedside. Prognosis remains guarded but there is some improvement. December 03: ICU. Intubated. FiO2 35 PEEP of 5. Drips include IV propofol and Precedex. Getting TPN. Telemetry shows sinus rhythm. Remains on IV Lasix 80 mg twice a day. IV meropenem. Because patient gets easily agitated when transitioning off propofol he has been switched over to Precedex. For hemodialysis today. December 04: ICU. Intubated. FiO2 35 and a PEEP of 5. Patient been taken off propofol is on Precedex. Telemetry sinus rhythm. J-tube with minimal output. RAYA drain with decreased output. NG tube to suction minimal output. Family wanted to hold off trickle feeding until cleared by oncology. Which he did today. Trickle feeding will be started today. Spoke to patient's and one of the daughters at the bedside. Dr. Russ is spoken to the earlier this point they want to do further tracheostomy tube. October 4: ICU. Intubated. FiO2 35 PEEP of 5. Patient remains on Precedex and PPN. Patient's dialysis catheter was not functioning is getting another [address] Bobby this afternoon. Remains on IV meropenem. Has a RAYA drain in the jejunostomy tube to gravity. NG tube to low intermittent suction. No family at the bedside. December 06: ICU. Intubated. FiO2 35 PEEP of 5. RAYA drain putting out about approximately 120 cc per shift. Patient on IV Precedex. FiO2 35 PEEP of 5. Telemetry-sinus rhythm. Patient occasionally been put on small dose of Levophed specially for hemodialysis getting it today. Also started on midodrine for low blood pressure. Tolerating tube feeding at 10 cc an hour. Also had a bowel movement. Mentation has not improved. Even with sedation holiday. Neurology consulted. CT brain shows no acute process. December 07: ICU. Intubated. FiO2 35 PEEP of 5. Telemetry-sinus rhythm. NG tube to suction low intermittent minimal output. Getting TPN. Tube feeding at 20 cc an hour. RAYA drain averaging over 100 cc per shift. Remains on Precedex. EEG was done today. Discussed with at the bedside. Family is currently not inclined for tracheostomy tube today. Day 13 of being intubated December 08: ICU. Intubated. FiO2 35 PEEP of 5. Patient is put on back on propofol per manager science Dr. JIMENEZ. EEG did show some potential for spikes was put on Keppra by neurology. Telemetry shows sinus rhythm. NG tube to suction with no output. Tube feeding was put on hold because of questionable discharge on the site. Being restarted today. RAYA drain is 150 cc last 12-hour shift. Patient does open eyes. Family has decided to proceed with tracheostomy and surgery has been consulted for the same. Spoke to the at the bedside. For hemodialysis today. December 09: ICU. Intubated FiO2 35 PEEP of 5. Patient seen this morning. Pending tracheostomy placement this afternoon. Remains NPO. G-tube feeding was held overnight. RAYA drain putting out about 100 cc per shift. Received a unit of blood for hemoglobin of 6.6. On 25 mics of propofol. Getting TPN and meropenem. Spoke to the at the bedside. Patient became hypotensive with dialysis yesterday. Levophed had to be given. Only 800 cc were removed yesterday. No hemodialysis today. December 10: ICU . FiO2 35, PEEP 5. Tracheostomy was done yesterday by Dr. Ewing. G-tube feeding was started today at 10 cc an hour. Dietitian following. RAYA drain 12-hour shift overnight put out about 30 cc. Patient hemodialysis today about 1 L removed. Patient has a sacral stage II decub with a dressing. On propofol 20 mics. Spoke to at the bedside. TPN. Meropenem was discontinued yesterday. December 11: ICU. FiO2 35 PEEP of 5. Tracheostomy. NG tube was discontinued. No hemodialysis today. Telemetry shows sinus rhythm. J-tube feeding at 40 cc an hour. TPN was discontinued. Patient has been off propofol also. PICC line in place. Patient had a EEG done today. Spoke to patient's elder daughter at the bedside. May open eyes occasionally. Not really following commands December 12: 73-year-old white male with history of chronic abdominal pain for the last 8 months has been treated with Protonix 40 mg daily for the last 3 months with no improvement. Patient had a 22 pound weight loss in the last [address] of the abdomen and pelvis 3 weeks ago showed thickening of the antral wall with pathological adenopathy posterior to the stomach suspicious of neoplasm. Today the patient underwent elective upper endoscopy to evaluate further, patient received IV sedation by anesthesia endoscope was inserted into the mouth, esophagus was intubated without any difficulty there was evidence of large amount of liquid and solid food noted in the stomach suggestive of gastric outlet obstruction. Scope could not be advanced through the pylorus, however in the prepyloric area there was a large superficial ulceration identified with multiple biopsies were done from this area. The body cardia and fundus could not adequately visualize because of large amount of retained food in the s tomach. Scope was withdrawn back to the stomach and upon careful examination the mucosa of the antrum body and cardia as well as the fundus appeared normal. Procedure was being performed and biopsies were done patient threw up and subsequently became hypoxic there was clearly evidence of witnessed aspiration anesthesia intubated the patient, procedure was terminated, and the patient was transferred to the ICU, this consult was initiated. Patient is now on assist- control rate of 20 tidal volume 500 FiO2 70% PEEP of 10 ABG is pending, earlier ABG showed profound hypoxia patient is on propofol at 50 mcg/kg/min, next ABG is pending. Chest x-ray showed chronic changes without evidence of acute pulmonary disease. 12/14/2023 Patient remains in the ICU, generally weak Patient s/p tracheostomy G-tube in place Patient still has fever and mild tachycardia but tachycardia is improving, leukocytosis improving as well. Hemoglobin 8.1. Creatinine 3.0 and nephrology team on the case. He has mild transaminitis. He was getting Zosyn which is held now, nowCalcitonin is pending 12/14 Patient shon in the ICU, he is still encephalopathic and does not follow command. Neurology service following closely. He is status post tracheostomy. Also J-tube His abdomen looks soft and on exam he has mild coarse secretions. Has a Abarca catheter with clear urine His pro- Calcitonin is still high but trending down 3.0 down to 1.9 No fever this morning WBC slightly less at 16.3 Patient currently off antibiotic He is getting steroids IV Solu-Medrol which might contribute to his leukocytosis. Also he is on IV Keppra by neurologist 12/14 Patient remains confused in the ICU calm, he had a good night per family member and staff. Tracheostomy in place Patient has occasional coughing spells, patient also developed some partial wound dehiscence in his abdomen, surgery team are aware and are going to evaluate the patient Patient also has positive blood culture from 12/13: Gram-positive cocci in clusters. Patient received one-time dose of IV vancomycin. Patient also had fever 2 days ago, leukocytosis and total elevated pro- Calcitonin. Therefore we are going to consult infectious disease team. As his antibiotic Zosyn was stopped few days ago. Currently patient KVO He has good urine output December 16: ICU. Trach. Congested. Requiring suctioning. No hemodialysis today. Getting G-tube feeding at 50 cc an hour. FiO2 30 and a PEEP of 5. On IV Precedex. Eyes open. Does follow commands. Weakness in the limbs. Spoke to at the bedside. Sputum positive for Klebsiella oxytoca and Pseudomonas aeruginosa. December 17: ICU. On trach. Currently cough with increased secretions requiring suctioning. Adding scopolamine patch. Very much clear secretion. CT scan is showing right upper lobe lung abscess. G-tube feeding at 50 cc an hour. Hemodialysis today. RAYA drain putting out about 140 cc a shift. Serous. Has been midline incision wound dehiscence. Wound VAC was placed on it. Stage II ulcer. Patient is on Precedex drip 0.15 mics. Urine output is good about 6200 cc an hour. Spoke to the at the bedside. Patient currently not stable for transfer to LTAC. No limb movements. PT OT on the case. otherwise awake does follow simple commands by face December 18: ICU. Patient seen this afternoon. Because of pain getting IV Dilaudid. No nasal cannula on room air. Does move about his head. Telemetry shows sinus rhythm. FiO2 30 and a PEEP of 5. Patient started on scopolamine patch yesterday has decreased secretions today. Good urine output. Tube feeding at 60 cc an hour. Wound VAC on incisional would be high since in place. RAYA drain continues to make output. No hemodialysis today December 19: ICU. Patient was seen earlier today. FiO2 30 and a PEEP of 5. Sinus rhythm. Awake. Does follow with eyes. Tube feeding got obstructed tube feedings held for now. Increasing oozing from the incision drainage site. at the bedside. Wound VAC remains in place. Good urine output. Dialysis held today. December 20: ICU. Per nephrology no dialysis today. 1 L fluid bolus given. J- tube was replaced over the wire by Dr. Ewing from surgery. On Precedex 0.6 mcg. FiO2 30 and a PEEP of 5 on the vent. RAYA drain putting out of around 100 cc per shift. at the bedside. Drainage through the abdominal incision wound. CT scan abdomen showed tube placement in the small bowel. Stable large right lower quadrant mass with a fluid level. December 21: ICU. No dialysis today. Patient started on trickle feeding through the J-tube yesterday. He started leaking around the J-tube site. Tube feeding was held. Dressings were placed. Wound VAC remains on the incision. Still having output through the RAYA drain. Patient remains on Precedex 0.4 mcg. FiO2 30 and a PEEP of 5. Sinus rhythm. at the bedside. December 22: ICU. Patient was seen this morning today by me. No dialysis today. Patient's and daughter at the bedside. FiO2 30 and a PEEP of 5. Sinus rhythm. Still having significant secretions through the tracheostomy tube. On Precedex 0.4 mcg. Getting D5W IV fluids. Tube feeding remains to be on hold since yesterday. Still output of RAYA drain. Awaiting input from surgery. Discussed with the and daughter. December 23: ICU. Saw the patient this afternoon. Because of good output of urine dialysis has been discontinued. Telemetry shows sinus rhythm. FiO2 30 and a PEEP of 5. RAYA output has been around 8200 cc an hour. Good urine output. Patient does have very slight movement of the limbs. Wound VAC is putting out about 20 cc per shift. Yesterday when trickle feeding was started patient's J- tube drainage also started leaking around the insertion site. Tube feeding was held. Patient remains on IV Zosyn and Precedex at 0.3 mcg. I had a very lengthy discussion with patient's daughter and at the bedside overall guarded prognosis. Later surgery spoke to the family, and then the nurse called me that family was wanting transferred to [facility]. I spoke to Dr. Iryb. They felt they could not offer anything more at this point. I did call the [facility] transfer assembler [employer]. Gave them the reason for transfer. Later in the ICU nurse informed me through [employer] that [facility] had declined the transfer. Total time spent today about 50 minutes with over 30 minutes of discussion. December 24: ICU. Patient is doing not too well. Sinus rhythm. Drips include norepinephrine and IV propofol. Surgery did put 2 stitches around the J-tube insertion site. Started on TPN today. FiO2 30 PEEP of 5. Patient became hypothermic put on a Manjit hugger. Also hypoglycemic. Decreased urine output. IV fluids increased. Patient's son was at the bedside. I did speak to patient's eldest daughter outside in the waiting room. Did tell the patient doing very poorly. I did try to call the on the phone number she has gone home. Started an IV antifungal today. December 26, 2023 73-year-old white male with history of chronic abdominal pain for the last 8 months has been treated with Protonix 40 mg daily for the last 3 months with no improvement. Patient had a 22 pound weight loss in the last [address] of the abdomen and pelvis 3 weeks ago showed thickening of the antral wall with pathological adenopathy posterior to the stomach suspicious of neoplasm. Today the patient underwent elective upper endoscopy to evaluate further, patient received IV sedation by anesthesia endoscope was inserted into the mouth, esophagus was intubated without any difficulty there was evidence of large amount of liquid and solid food noted in the stomach suggestive of gastric outlet obstruction. Scope could not be advanced through the pylorus, however in the prepyloric area there was a large superficial ulceration identified with multiple biopsies were done from this area. The body cardia and fundus could not adequately visualize because of large amount of retained food in the stomach. Scope was withdrawn back to the stomach and upon careful examination the mucosa of the antrum body and cardia as well as the fundus appeared normal. Procedure was being performed and biopsies were done patient threw up and subsequently became hypoxic there was clearly evidence of witnessed aspiration anesthesia intubated the patient, procedure was terminated, and the patient was transferred to the ICU, this consult was initiated. Patient is now on assist- control rate of 20 tidal volume 500 FiO2 70% PEEP of 10 ABG is pending, earlier ABG showed profound hypoxia patient is on propofol at 50 mcg/kg/min, next ABG is pending. Chest x-ray showed chronic changes without evidence of acute pulmonary disease. 12/27/2023 Patient is seen and evaluated with family at bedside; remains in the ICU intubated and mechanically ventilated. - ABG showed a pO2 of 99 pCO2 31 pH of 7.44. -- Remains on Eraxis daptomycin and Zosyn patient is intermittently requiring Dilaudid, Ativan does not seem to help his agitation and restlessness. -- Continues to have leakage around the jejunostomy tube, and patient is undergoing the J-tube exchange today. Family is at bedside, seems to be quite anxious about his overall condition, and I explained to the that we are doing the best we can considering his critical illness situation and critical illness polyneuropathy. Patient is profoundly weak, and weaning the patient from mechanical ventilation is almost impossible. At least not at this point yet WBC count is 10.9 hemoglobin is 8.1 basic metabolic profile is normal BUN is 46 creatinine 1.90 patient has been off hemodialysis since the . Chest x- ray continues to show stable findings with right upper lobe opacity and right lower lobe opacity and possibly a small right-sided pleural effusion ----Continue ventilatory support, now on IMV mode rate of 16 with pressure support of 14 Continue Precedex and use Dilaudid 0.5 mg every 2-3 hours as needed. Nutritional support patient is now on TPN, Possible J-tube changed today for J- tube malfunction Continue antibiotics including daptomycin and Zosyn, Eraxis was added by infectious disease 12/28/2023 the patient is seen and evaluated in room at bedside; continues to be afebrile, the patient is on the ventilator through the trach FiO2 is currently stable at 30% no significant pleural effusion clinically patient on requiring any pressor support still having drainage around his jejunostomy tube patient dialysis catheter has been discontinued. Patient white count normalized to 7.6, creatinine is 1.51 patient with pneumonia with a sputum showing Citrobacter and Pseudomonas aeruginosa, the patient sputum repeat is still growing Citrobacter and Pseudomonas sensitive to the Pseudomonas is pending continue with Zosyn -patient did have a positive blood culture with staph epi that was oxacillin resistant as the patient did have a PICC line and the dialysis catheter he is on daptomycin repeat blood culture currently growing oxacillin sensitive staph epi, the patient dialysis catheter has been discontinued Has been sent for the culture -patient also have significant excoriation around his jejunostomy tube site which is still leaking Eraxis was added which will be continued as the patient fever pattern has improved and the patient white count has normalized once again discussed with the nursing staff to apply Triad cream which was discussed yesterday but not applied and monitor clinical course closely 12/29/2023 Patient is seen and evaluated with family members at bedside; remains intubated and mechanically ventilated -- ABG showed a pO2 of 105 pCO2 31 pH of 7.45. Remains on Precedex; multiple antibiotics and antifungal including Eraxis daptomycin and Zosyn. -- chest x-ray is showing improvement in his right upper lobe airspace disease/pulmonary abscess. Right lower lobe seems about the same with chronic opacity and possibly some small right-sided pleural effusion. --Family is at bedside, patient is arousable but does not follow any instructions. Gets extremely restless and agitated easily hence patient is receiving Dilaudid which seems to be working much better for this patient than benzodiazepines --possibly transfer the patient to a select care specialty. 12/30/2023 Evaluated in follow-up in the intensive care unit. He remains on the mechanical ventilator. Status post tracheostomy. There has been a decrease in the amount of leakage around the J-tube site he continues on a gravity flow. TPN is infusing tube feedings remain on hold at this time. No bowel movement reported for the last 5 days. X-ray today reveals extensive pleural parenchymal opacities throughout the right with at least a moderate pleural effusion. Mild patchy densities left mid and lower lung are also similar. Blood work reveals a white blood cell count 11.5, hemoglobin 8.1, platelet count of 78, sodium 142, potassium 4.2, BUN of 42, creatinine of 1.22, Phos of 2.3, magnesium 1.9. Patient continues on IV anidulafungin IV Zerbaxa IV daptomycin. Patient is currently sedated with propofol and also Precedex which is currently on hold at this time. December 31, 2023: ICU. Patient continues to do poorly. On propofol 35 mics. Also getting IV Dilaudid and IV Ativan.. Telemetry shows sinus rhythm. J-tube feeding has been discontinued. Significant output through the Abarca bag and around the G-tube site. Patient also putting out through the RAYA drain on the right side. Getting TPN and lipids. Patient is antimicrobial include iv aniedulefungin, IV ceftolozane/tazobactam, IV daptomycin Advance care planning [October 31, 2023] I met with patient's at the bedside. Went through in detail with patient is overall very poor clinical status. Chances of any meaningful recovery next to minimal. I also did mention that patient in my opinion was not stable to go to chronic ventilator setting. I suggested comfort care/hospice. I did not feel and why all honesty that patient is benefiting any further from the treatment we are giving him in fact causing probably more suffering. I also spoke to patient's daughter outside in the waiting room. Total time spent about 50 minutes with over 30 minutes of discussion. Later I called Dr. Luther JIMENEZ the manager science after he received a text that family was expressing that some physician expressed he was doing better and giving hope. I spoke to nurse Lemos in the evening and she and Dr. JIMENEZ did go and talk to patient's family at the bedside later. January 01, 2024: ICU. FiO2 30 and a PEEP of 5. Continues to have increased drainage at the G-tube site. Wound VAC in place over the incision. RAYA drain continues to put out excretions. Good urine output. Drips include IV propofol at 20 mics, also getting IV Ativan and Dilaudid. Patient also keeping getting TPN lipids. Spoke to the patient's at the bedside. No further questions. I did speak to Dr. Irby from general surgery. Hence it is both our impression again that changing the tube will not make any difference to the bigger picture. And probably futile. Dr. Irby will be speaking to the family today. David from psychiatric social worker did ask about of family meeting. I did reiterate that I spoken at length to the a few times and also the daughter. Dr. Jimenez also spoke to the and Dr. Irby will be speaking with the today. Prognosis remains to be very poor. I did tell the in my opinion probably the patient is not r a candidate for long-term facility. Will manager science Dr. Jimenez determine if the patient is a candidate for long-term chronic ventilator facility. January 02, 2024: ICU. FiO2 30 PEEP of 5. Telemetry sinus rhythm. Drips include propofol at 20 mics. Patient getting TPN lipids. Receiving 1 unit of packed red blood cell. Patient was having a breakdown around the tracheostomy stoma site. With a cuff leak. G-tube site is continues to have increasing output. Wound VAC in place. RAYA drains also having increasing output. Patient sister and daughter from [place] from out of town. Earlier they spoke at length with Dr. alford from general surgery. Prognosis remains poor. January 03, 2024: ICU. FiO2 30 PEEP of 5. On propofol. 50 mics. Getting TPN lipids. Sinus rhythm. Wound VAC in place. Drainage around the j-tube site. RAYA drain continues to drain. Patient somewhat sedated. at the bedside. Later psychiatric social worker David inform me that the surgical team Dr. Irby has suggested possible you have [facility], to which family is trying to obtain transferred to. Per Dr. Jimenez note patient has been decline by long-term care twice. Prognosis remains poor. at the bedside. Had no questions. Brother Nathan is present. January 04, 2024: ICU. FiO2 30 PEEP of 5. Propofol was held this morning. Getting TPN lipids. Sinus rhythm. Wound VAC remains in place. Continues to have drainage around the J-tube. RAYA drain continues to have output. at the bedside. She had no questions. Antibiotics in place. January 05, 2024: ICU. FiO2 30 PEEP of 5. Audibly sounding congested. Getting TPN lipids. Sinus rhythm. Wound VAC in place. Drainage around J-tube site. RAYA output continues. No family at bedside. Getting antibiotics. Lethargic January 06, 2024: ICU. FiO2 30 PEEP of 5. Patient is been off propofol since yesterday. Does move his head about. Try to open his eyes sometimes. Sinus rhythm. Blood pressure is running high yesterday. Started on Cleviprex. Hydralazine is being added. Continue to get TPN lipids. J-tube site remains excoriated. Wound VAC in place. RAYA output about 40 to 50 cc is a 12-hour shift. Patient elder daughter at the bedside. Eraxis was discontinued on January 02. Daptomycin is being discontinued by ID. Continue ceftolo'szone. CT abdomen pelvis done today: 3.1 cm organized fluid collection within the rectovesicular space concerning for abscess. No change in right upper lung 4.9 cm fluid collection with a fluid level. For possible pulmonary abscess. Moderate size right lung base multiloculated hydropneumothorax possibly abscess. Additional areas of air bronchograms. January 07, 2024: ICU. FiO2 30 PEEP of 5. Patient was taken down for pigtail drainage of the right lung abscess. About 200 cc of pus was obtained. Nurse informed me when they told him about for the procedure a lot of pus gushed out from the tracheostomy site. Dr. Love at the bedside did a bronchoscopy. Some pus was aspirated. No obvious fistula was noted. Patient is being back on Cleviprex drip. TPN lipids. January 08, 2024: ICU. Patient was having severe bouts of coughing. Unable to maintain ventilation. Patient was put on Nimbex drip and propofol drip. TPN lipids continue. Has a right chest wall pigtail catheter 90 cc output in 12- hour shift. Drainage from around the J-tube site. RAYA drain continues Ahmet to have an output. Abdominal wound is high since with the wound VAC in place. Patient sedated. January 09, 2024: ICU. Patient is off propofol and Cleviprex. Does open eyes. RAYA drain. About 40 cc last 24 hours. J-tube site continues to have increased output. Requiring dressing change every so often. Wound VAC in place. Patient getting Dilaudid and Ativan. Telemetry shows sinus rhythm. 40 cc out of the pigtail drainage. Patient started on ciprofloxacin and tobramycin. Remains on TPN and lipids. Patient's eldest daughter and at the bedside. No new questions. January 10, 2024: ICU. Overnight patient had become asynchronous. Had to be put on Precedex drip. Hemoglobin dropped down to 6.6. Monitor blood ordered. RAYA output about 100 cc last 24 hours. Wound VAC remains in place. TPN lipid continues. Patient also has a leak in the right pigtail catheter. Sinus rhythm. Continues to have increased secretion at the G-tube site. Ventilator FiO2 30 and a PEEP of 5. at the bedside. Had no further questions. January 11, 2024: ICU. Patient remains on IV Precedex. TPN.'s RAYA output over 30 cc last 24 hours. Wound VAC remains in place. Sinus rhythm. FiO2 30 PEEP of 5. Pigtail with very little output. Spoke to Dr. Love who only spoke to the patient's at length. Gnosis poor. When I walked in patient's 2 daughters and the present. is very tearful crying hugging the patient. The daughter had no further questions Active Medications Acetaminophen (Acetaminophen Suppository 650 Mg Supp) 650 mg RECTAL Q6HR PRN PRN Reason: Fever Albuterol/Ipratropium (Ipratropium-Albuterol 3 Ml Neb) 3 ml INHALATION RT-QID [facility] Last Admin: 01/11/24 08:15 Dose: 3 ml Albuterol/Ipratropium (Ipratropium-Albuterol 3 Ml Neb) 3 ml INHALATION RT-Q2H PRN PRN Reason: Shortness Of Breath Or Wheezing Last Admin: 01/08/24 04:01 Dose: 3 ml Bisacodyl (Bisacodyl 10 Mg Supp) 10 mg RECTAL DAILY [facility] Last Admin: 01/11/24 09:03 Dose: 10 mg Chlorhexidine Gluconate (Chlorhexidine Gluconate 15 Ml Cup) 15 ml MUCOUS MEM BID [facility] Last Admin: 01/11/24 09:04 Dose: 15 ml Dextrose/Water (Dextrose 50% Syringe 50 Ml) 25 ml IVP PER PROTOCOL PRN; Protocol PRN Reason: Hypoglycemia Last Admin: 01/03/24 06:18 Dose: 25 ml Dextrose/Water (Dextrose 50% Syringe 50 Ml) 50 ml IVP PER PROTOCOL PRN; Protocol PRN Reason: Hypoglycemia Last Admin: 12/25/23 18:03 Dose: 50 ml Hydralazine HCl (Hydralazine Hcl 20 Mg/Ml 1 Ml Vial) 10 mg IVP Q6HR PRN PRN Reason: SBP >140 Last Admin: 01/07/24 23:28 Dose: 10 mg Hydromorphone HCl (Hydromorphone 2 Mg/Ml 1 Ml Syringe) 1.5 mg IVP Q4H [facility] Last Admin: 01/11/24 09:04 Dose: 1.5 mg Clevidipine 25 mg/ IV Solution 50 mls @ 2 mls/hr IV .Q24H [facility]; Protocol Last Admin: 01/10/24 17:49 Dose: Not Given Propofol 1,000 mg/ IV Solution 100 mls @ 8.757 mls/hr IV .[id number] [facility]; Protocol Last Titration: 01/09/24 08:00 Dose: 0 mcg/kg/min, 0 mls/hr Cisatracurium Besylate 200 mg/ (Sodium Chloride) 200 mls @ 5.838 mls/hr IV .Q24H [facility]; Protocol Last Admin: 01/10/24 17:49 Dose: Not Given Fat Emulsion Intravenous 250 (ml/ IV Solution) 250 mls @ 21 mls/hr IV TuThSa@0900 [facility] Last Admin: 01/11/24 09:02 Dose: 21 mls/hr Ciprofloxacin/Dextrose 400 mg/ (IV Solution) 200 mls @ 200 mls/hr IVPB Q8H [facility] Last Admin: 01/11/24 07:09 Dose: 200 mls/hr Dexmedetomidine HCl 400 mcg/ (IV Solution) 100 mls @ 5.2 mls/hr IV .[id number] [facility]; Protocol Last Admin: 01/11/24 10:24 Dose: 0.7 mcg/kg/hr, 18.2 mls/hr Tobramycin Sulfate 600 mg/ (Sodium Chloride) 115 mls @ 115 mls/hr IVPB Q48H [facility] Parenteral Vitamin Supplement 10 ml/ Zinc/Copper/Manganese/Selenium 1 ml/ Sodium Acetate 48 meq/ Magnesium Sulfate 2 gm / Calcium Gluconate 1 gm/Potassium Phosphate 24 mmol/Potassium Acetate 20 meq/Amino Acids/Dextrose 2,067 mls @ 90 mls/hr IV .[id number] [facility] Last Admin: 01/11/24 01:00 Dose: 90 mls/hr Insulin Aspart (Insulin Aspart (Novolog) 100 Unit/Ml Vial) 0 unit SQ 0000,0600,1200,1800 [facility]; Protocol Last Admin: 01/11/24 06:47 Dose: 4 unit Levetiracetam (Levetiracetam Iv 500 Mg/5 Ml Vial) 250 mg IVP Q24HR [facility] Last Admin: 01/11/24 09:03 Dose: 250 mg Lorazepam (Lorazepam 2 Mg/Ml Inj) 1 mg IV Q6HR PRN PRN Reason: Agitation Last Admin: 01/10/24 18:51 Dose: 1 mg Miscellaneous Information (Potassium Replacement Protocol 1 Each Misc) 1 each MISCELLANE DAILY PRN; Protocol PRN Reason: Per Protocol Miscellaneous Information (Magnesium Replacement Protocol 1 Each Misc) 1 each MISCELLANE DAILY PRN; Protocol PRN Reason: Per Protocol Miscellaneous Information (Phosphorus Replacement Protoco 1 Each Misc) 1 each MISCELLANE DAILY PRN; Protocol PRN Reason: Per Protocol Multi-Ingred Cream/Lotion/Oil/Oint (Hydrophilic Cream 180 Gm Tube) 1 applic TOPICAL BID [facility]; Protocol Last Admin: 01/11/24 09:14 Dose: 1 applic Multi-Ingredient Ointment (Zinc Oxide 20% Oint 28.4 Gm Tube) 1 applic TOPICAL BID PRN; Protocol PRN Reason: Skin Irritation Naloxone HCl (Naloxone 0.4 Mg/Ml 1 Ml Vial) 0.2 mg IV Q2M PRN PRN Reason: Opioid Reversal Pantoprazole Sodium (Pantoprazole 40 Mg/10 Ml Vial) 40 mg IVP BID [facility] Last Admin: 01/11/24 09:04 Dose: 40 mg Petrolatum (Zinc Oxide Paste (Z-Guard) 1 Applic) 1 applic TOPICAL BID [facility]; Protocol Last Admin: 01/11/24 09:14 Dose: 1 applic Past medical history to include: GERD Social history: . No smoking. Physical examination: VITAL SIGNS: 97.5, 82, 21, 128 / 88, 97% GENERAL: Sedated getting TPN and lipids EYES: Pupils equal. Conjunctiva edouard l. HEENT: External appearance of nose and ears normal, tracheostomy-. NECK: JVD unable to assess; masses not palpable. HEART: First and second heart sounds are normal; edema, present LUNGS: Respiratory rate increased, decreased breath sounds right chest wall pigtail catheter ABDOMEN: Soft, some tenderness. Liver spleen not palpable, no masses palpable..jejunostomy tube-dressing in place, . RAYA drain. Incision with stitches with - wound VAC PSYCH: Unable to assess NEURO: Sedated INVESTIGATIONS, reviewed in the clinical context: Debridement diet: White count 13.6 hemoglobin 8.4 platelets 208 potassium 3.7 creatinine 0.82 January 09: White count 15.4 hemoglobin 6.7 platelets 188 January 08: White count 15.3 hemoglobin 7.3 platelets 176 potassium 3.6 creatinine 0.89 January 06: White count 11.4 hemoglobin 7.4 potassium 3[address] abdomen pelvis [January 05]: 3.1 cm organized fluid collection within the rectovesicular space concerning for abscess. No change in right upper lung 4.9 cm fluid collection with a fluid level. For possible pulmonary abscess. Moderate size right lung base multiloculated hydropneumothorax possibly abscess. Additional areas of air bronchograms. January 05: White count 10.6 hemoglobin 7.6 platelets 111 sodium 137 potassium 3.5 BUN 44 creatinine 0.95 January 03: White count 13.4 hemoglobin 8.1 platelets 95 potassium 5.2 creatinine 1.1 albumin 1.8 Sputum culture [December 24] Citrobacter freundii, Pseudomonas aeruginosa Blood culture [December 24] Staphylococcus pettenkoferi December 24: White count 1.5 hemoglobin 8.2 platelets 106 potassium 3.8 BUN [address] chest abdomen without contrast [December 16] right upper lung cavitary lesion with air-fluid level in the posterior aspect and a larger cavitary lesion possibly within the lung parenchyma itself. Extending down towards the diaphragm additional airspace opacities in the left lung base. December 09: White count 26.1 hemoglobin 8.6 platelets 154 potassium 4.1 BUN 86 creatinine 3.31. Hemoglobin this morning was 6.6 prior to transfusion EEG-evidence of generalized cerebral dysfunction and sporadic intermittent higher amplitude sharply contoured waves mainly bifrontal. Showing cortical irritability. 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 Serosal fibrous adhesions. Viable margins. Sputum culture: [November 25]: Citrobacter freundii. Pseudomonas aeruginosa November 20: White count 14.4 hemoglobin 8.8 platelets 229 potassium 4.1 BUN [address] scan abdomen [November 19] possible small bowel obstruction Stool: C. difficile negative November 15: WBC 13 hemoglobin 7.7 platelets 248 potassium 4.3 creatinine 0.87 2D echo: EF 55 to 60%. Kidneys bladder: Unremarkable November 13: White count 12 hemoglobin 6.9 platelets 276 potassium 4.4 creatinine 1.21 magnesium 1.8 iron 6 TIBC 365% saturation 1.64 transferrin 261 ferritin 34.6 B12 569 folate 4.4 November 11: Creatinine 0.86 EGD: Large amount of retained solid liquid food noted in the stomach. Large superficial gastric antral ulceration involving most of the antrum extending into the pylorus causing pyloric stenosis. Biopsies were obtained. Chest x-ray film personally reviewed by me-scattered infiltrates Assessment plan: -Aspiration and gram-negative bacterial pneumonia a bilateral initially from retained gastric contents mostly food and liquids, causing acute hypoxic respiratory failure: On presentation: Subsequent bacterial pneumonia sputum culture November 25: Citrobacter freundii, Pseudomonas aeruginosa. December 13: Klebsiella oxytoca, Pseudomonas aeruginosa IV meropenem-, IV Zosyn.IV ceftolozane/tazobactam, IV daptomycin-all discontinued Currently getting IV ciprofloxacin and tobramycin -Patient became asynchronous with the ventilator. On Precedex drip -Breakdown of tracheostomy stoma site. Dressing in place Being followed by manager science -Sepsis with septicemia from above Patient received multiple antibiotics -Right l lung abscess, pigtail catheter placed January 07, 2024. Initially about 200 cc of pus obtained. During the procedure large amount of pus poured out of the tracheostomy site when patient was rolled on the left side. Status post bronchoscopy with some lavage on 01/07/2024 - lung abscess larger 1 on the right side-patient cultures are growing Pseudomonas and Klebsiella oxytoca: Slow to respond , Received other antibiotics. Currently on Levaquin and tobramycin -Acute pulmonary edema and fluid overload from hypoalbuminemic state and fluids from IV.:: Has been getting Lasix and dialysis: Both held -Altered mentation. Possibly encephalopathy. Could be delirium.: Not improving CT brain [December 06] nothing acute Neurology following EEG-evidence of generalized cerebral dysfunction and sporadic intermittent higher amplitude sharply contoured waves mainly bifrontal. Showing cortical irritability. Keppra was started on December 07 -Critical care poly- Pedro neuropathy: Slow to respond PT OT -Gallstones, asymptomatic -Small l bowel perforation at site of jejunostomy tube tip with balloon..: Portion of small bowel resected. On November 24. New J-tube was placed.- drainage to gravity:-Now discontinued December 19: J-tube blocked. J-tube replaced on December 20 over wire December 21: Leaking around the J-tube site. Feeding held December 23: J feeding was started yesterday evening but again started leaking increasingly around the J-tube site-feeding held again December 24: J-tube feeding has been held. Patient is currently having increased drainage from the J-tube site -Acute kidney injury. Possible ATN from hypotensive shock: Resolved Renal ultrasound unremarkable. Started on renal replacement therapy on November 28. Last hemodialysis on December 17. Being followed by an nephrology. Good urine output. -Nutrition Jejunostomy tube placed November [address] Ewing Received TPN-this was discontinued. TPN lipids restarted on December 24 -Lung abscess, not improving Antibiotics to continue. Pulmonary and ID following -Midline abdominal incision wound dehiscence Wound VAC placed -Acute recurrent atrial fibrillation-converted to sinus rhythm Received IV amiodarone. Cardiology following Lopressor -Acute hypoxic respiratory failure from aspiration pneumonia, status post ventilator assisted: Reintubated November 25. FiO2 35 PEEP of 5 Tracheostomy tube-by Dr. Zepeda on December 09 -Septic shock, recovered -Hypertension, recurrent Had received Cleviprex. Hydralazine added -Intermittent hypotension: Corrected Intermittent use of Levophed. 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 Also anemia of blood draw. Iron deficiency anemia Received total of 6 units of blood IV iron. -Severe thrombocytopenia. Would consider coagulation disorder secondary to infection., In the setting of underlying lymphoma.: Fluctuating with infection Hematology following. -Acute blood loss anemia, -Sacral stage II decub ulcer Dressing in place -Hypokalemia, multiple causes -Hypoglycemia -GERD PPI -Acute diarrhea secondary to tube feeding.: Resolved C. difficile ruled out. -Large superficial gastric antral ulceration involving the gastric antrum extending into the pylorus with gastric outlet obstruction. 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 -Full code On Precedex. IV ciprofloxacin and IV tobramycin. TPN lipids. Prognosis remains poor. To continue spoke to the patient's . Prognosis remains poor Past Medical History Past Medical History: GERD/Reflux History of Any Multi-Drug Resistant Organisms: None Reported Past Surgical History: Heart Catheterization Additional Past Surgical History / Comment(s): colonsocopy,spinal injection, Past Anesthesia/Blood Transfusion Reactions: No Reported Reaction Past Psychological History: No Psychological Hx Reported Smoking Status: Never smoker Past Alcohol Use History: None Reported Past Drug Use History: None Reported
[2024-01-11 13:08] LABS: Chol/HDL Ratio 9.33 Ratio; LDL Cholesterol,Calculated 50.1 mg/dL (0.0-131.0)
--- NOTE | 2024-01-11 13:26 | P.PN ---
Subjective she seen and evaluated bedside. No new changes. Objective - Vital Signs Vital signs: Vital Signs Temp 97.5 F L 01/11/24 12:00 Pulse 67 01/11/24 12:52 Resp 20 01/11/24 12:00 BP 134/86 01/11/24 12:00 Pulse Ox 97 01/11/24 12:00 FiO2 30 01/11/24 12:43 Intake & Output 01/10/24 01/11/24 01/11/24 18:59 06:59 18:59 Intake Total 5458.212 7259.933 571.157 Output Total 913 1865 600 Balance 713.047 -60.067 -28.843 Weight 101.4 kg Intake: IV 1145 1620 25 0.9 Normal Saline @ KVO 65 50 25 Ciprofloxacin/Dextrose 200 Pmx 400 mg In Dextrose/ Water 1 200ml.bag @ 200 mls/hr IVPB Q8H [facility] Rx#: [id number] Potassium Chloride 10 meq 200 In Water For Injection 1 100ml.bag @ 100 mls/hr IVPB Q1H [facility] Rx#: [id number] TPN 1080 1170 Intake, IV Titration 181.047 184.933 96.157 Amount Dexmedetomidine/0.9% NaCl 181.047 184.933 96.157 (Pmx) 400 mcg In Empty Bag 1 bag @ 0.2 MCG/KG/HR 5.2 mls/hr IV .[id number] [facility] Rx#:[id number] TPN/PPN 450 TPN 450 Blood Product 300 Rc As-1 Unit 300 [id number] Output: Chest Tube Drainage 50 40 Chest Tube Right 50 40 Drainage 180 380 Medial Abdomen 0 350 Right Abdomen 180 30 Urine 680 1445 600 Stool 3 Other: Voiding Method Indwelling Catheter Indwelling Catheter Indwelling Catheter ABP, PAP, CO, CI - Last Documented Arterial Blood Pressure 173/76 - Exam Physical exam: HEENT: Normocephalic, sclerae nonicteric Chest: Clear to auscultation Heart: Regular rate and rhythm Abdomen: [Nontender, nondistended, Hemovac in place, J-tube still leaking Extremities: No edema Neuro: Alert and oriented - Labs CBC & Chem 7: 01/11/24 02:45 01/11/24 02:45 Labs: Abnormal Lab Results - Last 24 Hours (Table) 01/10/24 01/10/24 01/10/24 Range/Units 04:32 17:52 23:29 WBC (3.8-10.6) k/uL RBC (4.30-5.90) m/uL Hgb (13.0-17.5) gm/dL Hct (39.0-53.0) % RDW (11.5-15.5) % Neutrophils # (Manual) (1.3-7.7) k/uL Metamyelocytes # (Man) (0) k/uL Myelocytes # (Manual) (0) k/uL ABG pH (7.35-7.45) ABG pCO2 (35-45) mmHg ABG Total CO2 (19-24) mmol/L ABG O2 Saturation (94-97) % Hemoglobin (13.0-17.5) gm/dL Sodium 135 L (137-145) mmol/L Potassium 3.3 L (3.5-5.1) mmol/L Chloride 110 H (98-107) mmol/L BUN 46 H (9-20) mg/dL Glucose 127 H (74-99) mg/dL POC Glucose (mg/dL) 213 H 166 H (70-110) mg/dL Calcium 7.2 L (8.4-10.2) mg/dL Phosphorus 1.7 L (2.5-4.5) mg/dL Alkaline Phosphatase (38-126) U/L Total Protein (6.3-8.2) g/dL Albumin (3.5-5.0) g/dL Triglycerides (0.00-149.00) mg/dL HDL Cholesterol (40.00-60.00) mg/dL 01/11/24 01/11/24 01/11/24 Range/Units 02:45 02:45 04:30 WBC 13.6 H (3.8-10.6) k/uL RBC 2.85 L (4.30-5.90) m/uL Hgb 8.4 L D (13.0-17.5) gm/dL Hct 25.5 L (39.0-53.0) % RDW 17.7 H (11.5-15.5) % Neutrophils # (Manual) 8.50 H (1.3-7.7) k/uL Metamyelocytes # (Man) 1.22 H (0) k/uL Myelocytes # (Manual) 0.41 H (0) k/uL ABG pH (7.35-7.45) ABG pCO2 (35-45) mmHg ABG Total CO2 (19-24) mmol/L ABG O2 Saturation (94-97) % Hemoglobin (13.0-17.5) gm/dL Sodium 134 L (137-145) mmol/L Potassium (3.5-5.1) mmol/L Chloride 108 H (98-107) mmol/L BUN 44 H (9-20) mg/dL Glucose 162 H (74-99) mg/dL POC Glucose (mg/dL) (70-110) mg/dL Calcium 7.2 L (8.4-10.2) mg/dL Phosphorus (2.5-4.5) mg/dL Alkaline Phosphatase 233 H (38-126) U/L Total Protein 6.0 L (6.3-8.2) g/dL Albumin 2.0 L (3.5-5.0) g/dL Triglycerides 187.00 H (0.00-149.00) mg/dL HDL Cholesterol 10.50 L (40.00-60.00) mg/dL 01/11/24 01/11/24 01/11/24 Range/Units 05:21 05:37 11:35 WBC (3.8-10.6) k/uL RBC (4.30-5.90) m/uL Hgb (13.0-17.5) gm/dL Hct (39.0-53.0) % RDW (11.5-15.5) % Neutrophils # (Manual) (1.3-7.7) k/uL Metamyelocytes # (Man) (0) k/uL Myelocytes # (Manual) (0) k/uL ABG pH 7.48 H (7.35-7.45) ABG pCO2 33 L (35-45) mmHg ABG Total CO2 26 H (19-24) mmol/L ABG O2 Saturation 98.3 H (94-97) % Hemoglobin 8.3 L (13.0-17.5) gm/dL Sodium (137-145) mmol/L Potassium (3.5-5.1) mmol/L Chloride (98-107) mmol/L BUN (9-20) mg/dL Glucose (74-99) mg/dL POC Glucose (mg/dL) 206 H 156 H (70-110) mg/dL Calcium (8.4-10.2) mg/dL Phosphorus (2.5-4.5) mg/dL Alkaline Phosphatase (38-126) U/L Total Protein (6.3-8.2) g/dL Albumin (3.5-5.0) g/dL Triglycerides (0.00-149.00) mg/dL HDL Cholesterol (40.00-60.00) mg/dL Assessment and Plan Assessment: 1. 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 Status post J-tube placement and revision for small bowel obstruction 2. Abdominal wound dehiscence status post wound VAC placement 3. Status post tracheostomy PLAN: -At this time no plan to exchange J-tube, this was discussed further with the family. Concern is for dilating the fistula tract and having excessive output. Continue to monitor. -There is concern for increased output from around J-tube site with introduction of tube feeding. This was discussed in depth with family. Family would like to continue with TPN and lipids at this time. -Continue to hold tube feeds -Wound VAC scheduled to be changed Saturday/Saturday/Saturday -Continue TPN for nutrition support -Continue zinc barrier cream around J-tube plan for ostomy appliance around J-tube when appropriate, ICU attending just spoke with the family and the patient's family is very tearful I will contact later. Time with Patient: Less than 30
--- NOTE | 2024-01-11 13:51 | P.PN ---
Subjective Progress Note Date: 01/11/24 01/06/2024, the patient is being seen for a follow-up. The patient remains off sedation. The patient is arousable. Remains profoundly weak and debilitated. He remains on the mechanical ventilator, assist-control mode with rate of 32, tidal volume of 450, FiO2 of 30% with a PEEP of 5. Chest x-ray shows extensive consolidation of the right lung and right upper lobe opacity with a previously described cavity. Blood gas shows a pH of 7.4 with a pCO2 of 34 pO2 of 93. The patient remains on KVO IV fluids. The patient is on TPN for nutritional support at a rate of 90 cc an hour. Fluid balance is +1.3 L over the past 24 hours. The patient is receiving Dilaudid for pain control. While off Dilaudid, he developed hypertension and overnight the patient was started on Cleviprex at 4 mg an hour. RAYA drain has produced around 40 cc over the past 24 hours. The J- tube is nonfunctional. The wound VAC is still in place. The blood work from today shows a white cell count of 10.6 and hemoglobin of 7.6 and a platelet count of 111. Renal function is normalized and the patient's BUN is 44 with a c reatinine of 0.9. Serum bicarb is at 19 with a chloride of 115 and a sodium level at 137. LFTs are normal with an alkaline phosphatase of 222. The sputum sample was positive for Citrobacter and Pseudomonas. The Pseudomonas aeruginosa was quite resistant and the patient is currently on a combination of ceftolozane and tazobactam. Afebrile. Hemodynamically stable. Cardiac rhythm is sinus. On 01/07/2024, the patient remains off sedation. Somewhat encephalopathic. Extremely weak, occasionally follows some simple commands. Unable to raise his arms against gravity. Continues to have respiratory secretions and coughing episodes specially once the effect of Dilaudid wears off. Remains on a mechanical ventilator. He was able to tolerate pressure support of 12 and a PEEP of 5 for a total of 4 hours yesterday. Overnight, the patient was kept on assist-control mode of mechanical ventilation this morning he is on assist- control of 20, tidal volume of 500, FiO2 of 30% with a PEEP of 5. The patient was placed back on pressure support mode of mechanical ventilation this is being done on a daily basis. Blood gas showed a pH of 7.44 with a pCO2 of 30 and pO2 100. Discussed the case with interventional radiology and the patient has a right lung abscess and the patient is going to have a pigtail catheter inserted today. Renal function is normal. TPN is running at a rate of 90 cc an hour. The J-tube is not being utilized at this point. Fluid balance is +149 cc over the past 24 hours. RAYA drain output is noted. Output is serosanguineous. Wound VAC is in place. The patient remains on Cleviprex at 2 mg an hour and the patient receiving hydralazine 10 mg for blood pressure control every 6 hours. He remains on a broad-spectrum antibiotic coverage and he is on ceftolozane tazobactamBlood work from today shows a WBC count of 11.4, hemoglobin of 7.4 and a platelet count of 145. BUN is 44 with a creatinine of 0.8 and sodium levels at 136 and potassium levels at 3.4. Glucose is 166. 01/08/2024, the patient is sedated on propofol and the patient is also paralyzed on Nimbex. Propofol during 50 mcg/kg/min and Nimbex at 4 mcg. The patient had to be sedated and paralyzed as the patient had frequent coughing spells to the point where the patient was unable to ventilate while being on the mechanical ventilator. Noted he had a pigtail catheter inserted yesterday. Pus was drained from his right hemithorax and a total amount of output is around 90 cc over the past 12 hours no purulent material and the patient has a positive airleak. The chest x-ray is still showing an area of consolidation which is quite extensive in the right lung with some improvement in the aeration of the right lung. Tracheostomy tube is in good location. A bronchoscopy was done. Unable to locate a bronchopleural fistula. Therapeutic airway suctioning was done. Respiratory secretions were suctioned out and sent for cultures. The right lung abscess was also sent for cultures. Currently on assist-control at rate of 20, tidal volume of 500, FiO2 of 30% with a PEEP of 5. Blood gas showed pH of 7.25 with a pCO2 of 50 and pO2 of 76. A white cell count of 17.3 with a hemoglobin 7.1 and a platelet count of 157. His sodium level is at 135, potassium levels at 3.4, bicarb is at 19 with a BUN of 45 with a creatinine of 0.8. Phosphorus is at 2.9, magnesium is at 1.8. Blood sugars of 208. He remains on ceftolozane/tazobactam. RAYA drain is still in place. Wound VAC is still in place. Receives TPN for nutritional support. The patient is not receiving enteral feeding. The J-tube is nonfunctional. 01/09/2024, the patient was taken off the paralytics and the patient was taken off the propofol this morning. He is calm and comfortable. Cough is less. Pigtail is draining total of 300 cc of purulent material since insertion and 220 cc over the past 24 hours. There is positive air leak. Chest x-ray remains unchanged. No pneumothorax. Tracheostomy tube is in good location. Patient is currently on assist-control mode rate of 20, tidal volume of 500, FiO2 30% with a PEEP of 5. Blood gas showed a pH of 7.4 with a pCO2 of 40 and pO2 of 75. The patient was given bicarb infusion overnight and the patient serum bicarb has improved. Remains on TPN for nutritional support at a rate of 90 cc an hour. The white cell count of 15.3 with a hemoglobin 7.3. The serum bicarb is at 24. Chloride is 111 and a potassium level is at 3.6 and a sodium levels at 137. Remains on ceftolozane/tazobactam. ID is on the case for further antibiotic modification. Most recent Pseudomonas that was cultured from the lungs was sensitive to quinolones. RAYA drain is in place. The J-tube is nonfunctional. The patient continues to be on TPN for nutritional support. 01/10/2024, the patient is on low-dose Precedex. Currently comfortable, sensitive to mechanical ventilator. Output from the pigtail has dropped and the patient continues to have a positive airleak. The chest x-ray shows bilateral consolidation worse on the right and there is a small right apical pneumothorax. Pigtail catheter is in a good location. Blood gas showed a pH of 7.48 with a pCO2 of 35 and a pO2 of 83. He is on assist-control mode with rate of 20, tidal volume of 600, FiO2 30% with a PEEP of 5. RAYA drain output is serosanguineous. TPN is at 90 cc an hour. Fluid balance is -700 cc. The white cell count is at 15.4, hemoglobin is at 6.7 and the patient was given a unit of packed RBC and a platelet count is 188. Electrolytes show a BUN of 46 with a creatinine of 0.7, sodium of 135, potassium level of 3.3. Antibiotics has been modified to a combination of ciprofloxacin and tobramycin as the patient showed quinolone sensitive Pseudomonas in the sputum and in the drain the abscess from the right lung. 01/11/2024, the patient is being seen for a follow-up. Patient is currently on low-dose Precedex at 0.2 mcg/kg/min. Calm and comfortable, no significant coughing. Remains on the mechanical ventilator./On the same vent setting which includes assist-control of 20, tidal volume of 600, FiO2 30% with a PEEP of 5. Chest x-ray shows a right apical pneumothorax, extensive consolidation of the right lung and some limited consolidation in the left and the catheter is in place with purulent output. There is also possibility through the pigtail catheter. Tracheostomy tube is in good location. Remains on tobramycin and ciprofloxacin. The white cell count of 13.6, hemoglobin 8.4 and platelet count is at 208. Blood gas from today showed a pH of 7.48 with a pCO2 of 33 and pO2 o f 93. Sodium is at 134, potassium is at 3.7, BUN is 44 with a creatinine of 0.8. LFTs are normal and the patient has an alkaline phosphatase of 233 as the patient continues to receive TPN for nutritional support. Triglyceride levels at 187. Otherwise, no other significant changes condition. Cardiac rhythm remains sinus. The patient is producing adequate amount of urine output. Extremely debilitated, extremely weak, J-tube is not functional and there is leak around the J-tube. The patient was seen again by general surgery and there is no plan to exchange the J-tube. Concern of some leak around the J-tube and based on that an ostomy appliance will be applied around the J-tube. Objective - Vital Signs Vital signs: Vital Signs Temp 97.5 F L 01/11/24 08:00 Pulse 83 01/11/24 10:00 Resp 21 01/11/24 10:00 BP 128/88 01/11/24 10:00 Pulse Ox 97 01/11/24 10:00 FiO2 30 01/11/24 08:16 Intake & Output 01/10/24 01/11/24 01/11/24 18:59 06:59 18:59 Intake Total 6784.974 8614.933 381.157 Output Total 913 1865 300 Balance 713.047 -60.067 81.157 Weight 101.4 kg Intake: IV 1145 1620 15 0.9 Normal Saline @ KVO 65 50 15 Ciprofloxacin/Dextrose 200 Pmx 400 mg In Dextrose/ Water 1 200ml.bag @ 200 mls/hr IVPB Q8H [facility] Rx#: [id number] Potassium Chloride 10 meq 200 In Water For Injection 1 100ml.bag @ 100 mls/hr IVPB Q1H [facility] Rx#: [id number] TPN 1080 1170 Intake, IV Titration 181.047 184.933 96.157 Amount Dexmedetomidine/0.9% NaCl 181.047 184.933 96.157 (Pmx) 400 mcg In Empty Bag 1 bag @ 0.2 MCG/KG/HR 5.2 mls/hr IV .[id number] NIRMAL Rx#:[id number] TPN/PPN 270 TPN 270 Blood Product 300 Rc As-1 Unit 300 [id number] Output: Chest Tube Drainage 50 40 Chest Tube Right 50 40 Drainage 180 380 Medial Abdomen 0 350 Right Abdomen 180 30 Urine 680 1445 300 Stool 3 Other: Voiding Method Indwelling Catheter Indwelling Catheter ABP, PAP, CO, CI - Last Documented Arterial Blood Pressure 173/76 - Exam No acute distress, opening of his eyes, not responding to commands, off Nimbex and off propofol, on the mechanical ventilator. The patient has a tracheostomy tube in place. HEENT examination is grossly unremarkable. Mucous membranes are moist. No oral lesions.. The patient also has a tracheostomy tube in place and the patient has a #8 Shiley tracheostomy tube. Cardiac exam revealed the PMI to be normally situated and sized. The rhythm was regular and no extrasystoles were noted during several minutes of auscultation. The first and second heart sounds were normal and physiologic splitting of the second heart sound was noted. There were no murmurs, rubs, clicks, or gallops. The patient is in sinus tachycardia. Lungs reveal mild scattered rhonchi. No wheezes or crackles. Breath sounds equal. Diminished breath sound lung base bilaterally. Pigtail catheter in the right chest posteriorly located with positive output and positive airleak on the Pleur-evac. Abdomen distended without bowel sounds. J-tube is noted. Mid abdominal wound is covered with a wound VAC and a RAYA drain in place and output is serosanguineous. Extremities are intact. No cyanosis clubbing trace edema lower extremities bilaterally Skin is without rash or lesion. The wound at the Mediport site is dry and the area has been sutured and the site is clean for now. Neurologic examination is brief but nonfocal. Currently, the patient is still sedated while being off propofol. - Labs CBC & Chem 7: 01/11/24 02:45 01/11/24 02:45 Labs: Abnormal Lab Results - Last 24 Hours (Table) 01/10/24 01/10/24 01/10/24 Range/Units 04:32 05:38 11:32 WBC (3.8-10.6) k/uL RBC (4.30-5.90) m/uL Hgb (13.0-17.5) gm/dL Hct (39.0-53.0) % RDW (11.5-15.5) % Neutrophils # (Manual) (1.3-7.7) k/uL Metamyelocytes # (Man) (0) k/uL Myelocytes # (Manual) (0) k/uL ABG pH (7.35-7.45) ABG pCO2 (35-45) mmHg ABG Total CO2 (19-24) mmol/L ABG O2 Saturation (94-97) % Hemoglobin (13.0-17.5) gm/dL Sodium 135 L (137-145) mmol/L Potassium 3.3 L (3.5-5.1) mmol/L Chloride 110 H (98-107) mmol/L BUN 46 H (9-20) mg/dL Glucose 127 H (74-99) mg/dL POC Glucose (mg/dL) 122 H (70-110) mg/dL Calcium 7.2 L (8.4-10.2) mg/dL Phosphorus 1.7 L (2.5-4.5) mg/dL Alkaline Phosphatase (38-126) U/L Total Protein (6.3-8.2) g/dL Albumin (3.5-5.0) g/dL Crossmatch See Detail 01/10/24 01/10/24 01/11/24 Range/Units 17:52 23:29 02:45 WBC (3.8-10.6) k/uL RBC (4.30-5.90) m/uL Hgb (13.0-17.5) gm/dL Hct (39.0-53.0) % RDW (11.5-15.5) % Neutrophils # (Manual) (1.3-7.7) k/uL Metamyelocytes # (Man) (0) k/uL Myelocytes # (Manual) (0) k/uL ABG pH (7.35-7.45) ABG pCO2 (35-45) mmHg ABG Total CO2 (19-24) mmol/L ABG O2 Saturation (94-97) % Hemoglobin (13.0-17.5) gm/dL Sodium 134 L (137-145) mmol/L Potassium (3.5-5.1) mmol/L Chloride 108 H (98-107) mmol/L BUN 44 H (9-20) mg/dL Glucose 162 H (74-99) mg/dL POC Glucose (mg/dL) 213 H 166 H (70-110) mg/dL Calcium 7.2 L (8.4-10.2) mg/dL Phosphorus (2.5-4.5) mg/dL Alkaline Phosphatase 233 H (38-126) U/L Total Protein 6.0 L (6.3-8.2) g/dL Albumin 2.0 L (3.5-5.0) g/dL Crossmatch 01/11/24 01/11/24 01/11/24 Range/Units 02:45 05:21 05:37 WBC 13.6 H (3.8-10.6) k/uL RBC 2.85 L (4.30-5.90) m/uL Hgb 8.4 L D (13.0-17.5) gm/dL Hct 25.5 L (39.0-53.0) % RDW 17.7 H (11.5-15.5) % Neutrophils # (Manual) 8.50 H (1.3-7.7) k/uL Metamyelocytes # (Man) 1.22 H (0) k/uL Myelocytes # (Manual) 0.41 H (0) k/uL ABG pH 7.48 H (7.35-7.45) ABG pCO2 33 L (35-45) mmHg ABG Total CO2 26 H (19-24) mmol/L ABG O2 Saturation 98.3 H (94-97) % Hemoglobin 8.3 L (13.0-17.5) gm/dL Sodium (137-145) mmol/L Potassium (3.5-5.1) mmol/L Chloride (98-107) mmol/L BUN (9-20) mg/dL Glucose (74-99) mg/dL POC Glucose (mg/dL) 206 H (70-110) mg/dL Calcium (8.4-10.2) mg/dL Phosphorus (2.5-4.5) mg/dL Alkaline Phosphatase (38-126) U/L Total Protein (6.3-8.2) g/dL Albumin (3.5-5.0) g/dL Crossmatch Assessment and Plan Plan: Acute hypoxemic respiratory failure with failure to wean from mechanical ventilation, S/P tracheostomy on December 10, 2023. The patient has bilateral pneumonia with a cavitary infiltrate in the right upper lobe, secondary to Pseudomonas aeruginosa and Citrobacter and the patient is currently on a combination of ceftolozane/tazobactam. CAT scan of the chest done on 12/17/2023 was reviewed and the patient has a cavitating cyst/abscess in the posterior aspect of the right upper lobe in addition to patchy opacities bilaterally right more than left consistent with pneumonia,/gram-negative pneumonia. The patient had a pigtail catheter inserted with drainage of the right lung abscess. The b ronchial washing is positive for Pseudomonas aeruginosa, quinolone sensitive and the cultures from the pigtail catheter/lung abscess was also positive for Pseudomonas aeruginosa.. Chest x-ray findings are essentially unchanged, stable consolidation of the right lung and the pigtail remains in good location. The patient has a tiny right apical pneumothorax. There is positive air leak. The patient is currently on a combination of tobramycin and ciprofloxacin. Right apical pneumothorax with ongoing airleak through the pigtail catheter Mild respiratory alkalosis Hospital-acquired right lung pseudomonal/Klebsiella pneumonia. Patient is currently on IV Cipro and Tobra. Chest x-ray from remains unchanged. Respiratory secretions are copious. Coughing episodes have subsided while being on Precedex. Cough, subsided, continues to have respiratory secretions. Rule out underlying bronchopleural fistula. Bronchoscopy was completed. 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 Small bowel perforation with abdominal contamination. The patient is status post expiratory laparotomy and small bowel resection and insertion of another jejunostomy tube. The patient jejunostomy is not functional and remains clogged and this was unclogged yesterday. Nevertheless, the tube itself is still malfunctioning. However, the abdominal wound is dehisced and is infected. RAYA drain output is serosanguineous. A wound VAC was applied to the anterior abdominal wall. Peritonitis secondary to above, recovered Septic shock secondary to above, the patient is currently off pressors Atrial fibrillation with rapid medical response, currently back into normal sinus rhythm . Acute kidney injury, off hemodialysis and renal function has normalized History of acute aspiration during upper endoscopy most likely secondary to gastric outlet obstruction secondary to non-Hodgkin's lymphoma. weight loss most likely secondary non-Hodgkin's lymphoma involving the stomach. 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 Malfunctioning of the J-tube, currently on TPN for nutritional support Hypertension Plan Continue ventilator support. Dropped a tidal volume to 500 Continue Precedex and titrate the dose Bronchoscopy was done, unable to find a fistula although the possibility of bronchopleural fistula cannot be completely ruled out as the patient continues to have purulent secretions and frequent coughing episodes. He does have a pos itive air leak in his pigtail catheter. output is adequate from the pigtail catheter. No plans for alteplase administration as the patient has positive air leak and right-sided pneumothorax. Cultures from the right lung abscess and sputum was sent and the sputum sample was positive for Pseudomonas aeruginosa, quinolone sensitive. Continue IV ciprofloxacin/tobramycin The J-tube is nonfunctional and the patient is on TPN for nutritional support, ostomy will be applied around the J-tube. IV fluids to KVO Monitor fever pattern General Surgery is on the case regarding abdominal wound Condition remains extremely critical with poor prognosis based on the above Will continue to follow this patient along with the rest of the consultants. Condition is critical over the poor outcome based on the above. Evaluation was done more than 30 minutes. I had a lengthy discussion with the . Explained to them the poor prognosis. May not be reasonable to consider hospice at this point in time. Family will give it a thought and will discuss this with family members. Time with Patient: Greater than 30
[2024-01-11] MEDS: TOBRAMYCIN SULFATE IVPB SCH (14:37)
[2024-01-11] MEDS: SODIUM CHLORIDE 0.9% IVPB SCH (14:37)
--- NOTE | 2024-01-11 15:18 | P.PN ---
Subjective Progress Note Date: 01/11/24 Principal diagnosis: Reason for follow-up is pneumonia and bacteremia Patient is 73-year-old with male initial presentation to the hospital on 11/11/2021 for after the patient did have aspiration while undergoing elective endoscopy, diagnosed with a non-Hodgkin of, subsequently did have explained laparotomy for perforated small bowel abdominal washout and feeding jejunostomy tube patient did require dialysis catheter placement for dialysis during this hospital stay and tracheostomy for respiratory failure, infectious was consulted for fever. On today's evaluation that is 01/11/2024, patient has been afebrile, patient is intubated on the vent through the trach patient is hemodynamically stable not requiring any pressor support no other changes reported by nursing staff or the family at the bedside. Patient white count is down to 13.6 creatinine 0.82 pleural fluid culture growing Pseudomonas but sensitivities are pending Objective - Vital Signs Vital signs: Vital Signs Temp 97.5 F L 01/11/24 08:00 Pulse 83 01/11/24 10:00 Resp 21 01/11/24 10:00 BP 128/88 01/11/24 10:00 Pulse Ox 97 01/11/24 10:00 FiO2 30 01/11/24 08:16 Intake & Output 01/10/24 01/11/24 01/11/24 18:59 06:59 18:59 Intake Total 0282.210 8120.933 476.157 Output Total 913 1865 500 Balance 713.047 -60.067 -23.843 Weight 101.4 kg Intake: IV 1145 1620 20 0.9 Normal Saline @ KVO 65 50 20 Ciprofloxacin/Dextrose 200 Pmx 400 mg In Dextrose/ Water 1 200ml.bag @ 200 mls/hr IVPB Q8H [facility] Rx#: [id number] Potassium Chloride 10 meq 200 In Water For Injection 1 100ml.bag @ 100 mls/hr IVPB Q1H [facility] Rx#: [id number] TPN 1080 1170 Intake, IV Titration 181.047 184.933 96.157 Amount Dexmedetomidine/0.9% NaCl 181.047 184.933 96.157 (Pmx) 400 mcg In Empty Bag 1 bag @ 0.2 MCG/KG/HR 5.2 mls/hr IV .[id number] [facility] Rx#:[id number] TPN/PPN 360 TPN 360 Blood Product 300 Rc As-1 Unit 300 [id number] Output: Chest Tube Drainage 50 40 Chest Tube Right 50 40 Drainage 180 380 Medial Abdomen 0 350 Right Abdomen 180 30 Urine 680 1445 500 Stool 3 Other: Voiding Method Indwelling Catheter Indwelling Catheter Indwelling Catheter ABP, PAP, CO, CI - Last Documented Arterial Blood Pressure 173/76 - Exam GENERAL DESCRIPTION: An elderly male lying in bed in no distress RESPIRATORY SYSTEM: Unlabored breathing , decreased breath sounds at bases HEART: S1 S2 regular rate and rhythm , ABDOMEN: Soft , no tenderness EXTREMITIES: No edema feet - Labs CBC & Chem 7: 01/11/24 02:45 01/11/24 02:45 Labs: Abnormal Lab Results - Last 24 Hours (Table) 01/10/24 01/10/24 01/10/24 Range/Units 04:32 17:52 23:29 WBC (3.8-10.6) k/uL RBC (4.30-5.90) m/uL Hgb (13.0-17.5) gm/dL Hct (39.0-53.0) % RDW (11.5-15.5) % Neutrophils # (Manual) (1.3-7.7) k/uL Metamyelocytes # (Man) (0) k/uL Myelocytes # (Manual) (0) k/uL ABG pH (7.35-7.45) ABG pCO2 (35-45) mmHg ABG Total CO2 (19-24) mmol/L ABG O2 Saturation (94-97) % Hemoglobin (13.0-17.5) gm/dL Sodium 135 L (137-145) mmol/L Potassium 3.3 L (3.5-5.1) mmol/L Chloride 110 H (98-107) mmol/L BUN 46 H (9-20) mg/dL Glucose 127 H (74-99) mg/dL POC Glucose (mg/dL) 213 H 166 H (70-110) mg/dL Calcium 7.2 L (8.4-10.2) mg/dL Phosphorus 1.7 L (2.5-4.5) mg/dL Alkaline Phosphatase (38-126) U/L Total Protein (6.3-8.2) g/dL Albumin (3.5-5.0) g/dL 01/11/24 01/11/24 01/11/24 Range/Units 02:45 02:45 05:21 WBC 13.6 H (3.8-10.6) k/uL RBC 2.85 L (4.30-5.90) m/uL Hgb 8.4 L D (13.0-17.5) gm/dL Hct 25.5 L (39.0-53.0) % RDW 17.7 H (11.5-15.5) % Neutrophils # (Manual) 8.50 H (1.3-7.7) k/uL Metamyelocytes # (Man) 1.22 H (0) k/uL Myelocytes # (Manual) 0.41 H (0) k/uL ABG pH (7.35-7.45) ABG pCO2 (35-45) mmHg ABG Total CO2 (19-24) mmol/L ABG O2 Saturation (94-97) % Hemoglobin (13.0-17.5) gm/dL Sodium 134 L (137-145) mmol/L Potassium (3.5-5.1) mmol/L Chloride 108 H (98-107) mmol/L BUN 44 H (9-20) mg/dL Glucose 162 H (74-99) mg/dL POC Glucose (mg/dL) 206 H (70-110) mg/dL Calcium 7.2 L (8.4-10.2) mg/dL Phosphorus (2.5-4.5) mg/dL Alkaline Phosphatase 233 H (38-126) U/L Total Protein 6.0 L (6.3-8.2) g/dL Albumin 2.0 L (3.5-5.0) g/dL 01/11/24 01/11/24 Range/Units 05:37 11:35 WBC (3.8-10.6) k/uL RBC (4.30-5.90) m/uL Hgb (13.0-17.5) gm/dL Hct (39.0-53.0) % RDW (11.5-15.5) % Neutrophils # (Manual) (1.3-7.7) k/uL Metamyelocytes # (Man) (0) k/uL Myelocytes # (Manual) (0) k/uL ABG pH 7.48 H (7.35-7.45) ABG pCO2 33 L (35-45) mmHg ABG Total CO2 26 H (19-24) mmol/L ABG O2 Saturation 98.3 H (94-97) % Hemoglobin 8.3 L (13.0-17.5) gm/dL Sodium (137-145) mmol/L Potassium (3.5-5.1) mmol/L Chloride (98-107) mmol/L BUN (9-20) mg/dL Glucose (74-99) mg/dL POC Glucose (mg/dL) 156 H (70-110) mg/dL Calcium (8.4-10.2) mg/dL Phosphorus (2.5-4.5) mg/dL Alkaline Phosphatase (38-126) U/L Total Protein (6.3-8.2) g/dL Albumin (3.5-5.0) g/dL Assessment and Plan (1) Sepsis Current Visit: Yes Status: Acute Code(s): A41.9 - SEPSIS, UNSPECIFIED ORGANISM SNOMED Code(s): 21648408 (2) Pneumonia Current Visit: Yes Status: Acute Code(s): J18.9 - PNEUMONIA, UNSPECIFIED ORGANISM SNOMED Code(s): 935435606 (3) Bacteremia Current Visit: Yes Status: Acute Code(s): R78.81 - BACTEREMIA SNOMED Code(s): 5051119 Plan: 1patient with pneumonia with a sputum showing Citrobacter and Pseudomonas aeruginosa, the patient sputum repeat is still growing Citrobacter and Pseudomonas, Pseudomonas that is a drug-resistant and resistant to Zosyn, subsequently did have new findings of lung abscess on the CT status post drainage catheter placement by interventional radiology subsequently did have purulent pleural fluid which has been cultured did have a chest tube and is growing Pseudomonas with sensitivities pending sputum did grew multidrug- resistant Pseudomonas aeruginosa. 2-patient also have evidence of retro vesicular abscess on the CT abdominal pelvis, this has been discussed with the surgical team on the case in person however mention patient would not be able to tolerate any further surgery. 3patient is afebrile the patient white count is slowly trending down, to continue with IV Cipro and tobramycin creatinine has been normal and will be monitored closely currently waiting for sensitivity on the Pseudomonas growing in the pleural fluid Dictation was produced using [employer] software. please excuse any grammatical, word or spelling errors. Time with Patient: Less than 30
[2024-01-11] MEDS: POTASSIUM CHLORIDE 20 MEQ in WATER FOR INJECTION 1 100ML.BAG IVPB STA (15:26)
[2024-01-11 17:34] LABS: Glucose,Whole Blood 162 mg/dL (70-110)
[2024-01-12 00:07] LABS: Glucose,Whole Blood 141 mg/dL (70-110)
[2024-01-12 06:09] LABS: Glucose,Whole Blood 165 mg/dL (70-110)
[2024-01-12 07:34] LABS: ALT 27 U/L (4-49); AST 35 U/L (17-59); African American GFR (CKD) >90 (>60 ml/min/1.73 sqM); Albumin 1.9 g/dL (3.5-5.0); Alkaline Phosphatase 244 U/L (38-126); Anion Gap 1 mmol/L; Blood Urea Nitrogen 42 mg/dL (9-20); Carbon Dioxide 25 mmol/L (22-30); Chloride 106 mmol/L (98-107); Glucose 184 mg/dL (74-99); Magnesium 1.8 mg/dL (1.6-2.3); Non-African American GFR(CKD) 87 (>60 ml/min/1.73 sqM); Phosphorus 3.8 mg/dL (2.5-4.5); Potassium 3.9 mmol/L (3.5-5.1); Sodium 132 mmol/L (137-145); Total Bilirubin 0.8 mg/dL (0.2-1.3); Total Protein 5.8 g/dL (6.3-8.2)
[2024-01-12] MEDS: POTASSIUM CHLORIDE 10 MEQ in WATER FOR INJECTION 1 100ML.BAG IVPB SCH (08:02)
--- NOTE | 2024-01-12 09:03 | P.PN ---
Subjective Patient is seen in follow-up for acute kidney injury. Patient underwent exploratory laparotomy with small bowel obstruction NG tube replacement Sep tem2023. Nonoliguric. Started on hemodialysis November 29, 2023. Last dialysis December 18, 2023. Status post tracheostomy December 10, 2023. Renal function has improved and is back to baseline. Receiving TPN. Off vasopressors. Underwent drainage of lung abscess January 07, 2024. Hemoglobin improved post blood transfusion. Vital signs stable. General: Resting in bed. HEENT: Tracheostomy noted. LUNGS: Scattered rhonchi. Chest tube noted. HEART: Regular rate and rhythm. ABDOMEN: No drainage. EXTREMITITES: Trace edema. Objective - Vital Signs Vital signs: Vital Signs Temp 97.4 F L 01/12/24 04:00 Pulse 84 01/12/24 08:43 Resp 27 H 01/12/24 07:00 BP 120/81 01/12/24 07:00 Pulse Ox 98 01/12/24 07:00 FiO2 30 01/12/24 08:43 Intake & Output 01/11/24 01/12/24 01/12/24 18:59 06:59 18:59 Intake Total 5648.897 9236.797 191.763 Output Total 1565 2025 100 Balance -929.624 1487.797 91.763 Weight 104.2 kg Intake: IV 55 450 5 0.9 Normal Saline @ KVO 55 50 5 Ciprofloxacin/Dextrose 400 Pmx 400 mg In Dextrose/ Water 1 200ml.bag @ 200 mls/hr IVPB Q8H [facility] Rx#: [id number] Intake, IV Titration 978.029 9204.797 96.763 Amount Dexmedetomidine/0.9% NaCl 196.157 190.797 96.763 (Pmx) 400 mcg In Empty Bag 1 bag @ 0.2 MCG/KG/HR 5.2 mls/hr IV .[id number] [facility] Rx#:[id number] Mvi, Adult No.4 with Vit 2067 K 10 ml Trace (Conc-1Ml/ Dose) 1 ml Sodium Acetate 48 meq Magnesium Sulfate gm 2 gm Calcium Gluconate 1 gm Potassium Phosphate 24 mmol Potassium Acetate 20 meq In Amino Acids 5 %/ Dextrose 20 % 2,000 ml @ 90 mls/hr IV .[id number] [facility] Rx#:[id number] TPN/PPN 990 1080 90 TPN 990 1080 90 Output: Chest Tube Drainage 50 40 Chest Tube Right 50 40 Drainage 60 Right Abdomen 60 Urine 1515 1925 100 Other: Voiding Method Indwelling Catheter Indwelling Catheter ABP, PAP, CO, CI - Last Documented Arterial Blood Pressure 173/76 - Labs CBC & Chem 7: 01/11/24 02:45 01/12/24 06:59 Labs: Abnormal Lab Results - Last 24 Hours (Table) 01/11/24 01/11/24 01/11/24 Range/Units 04:30 11:35 17:33 Sodium (137-145) mmol/L BUN (9-20) mg/dL Glucose (74-99) mg/dL POC Glucose (mg/dL) 156 H 162 H (70-110) mg/dL Calcium (8.4-10.2) mg/dL Alkaline Phosphatase (38-126) U/L Total Protein (6.3-8.2) g/dL Albumin (3.5-5.0) g/dL Triglycerides 187.00 H (0.00-149.00) mg/dL HDL Cholesterol 10.50 L (40.00-60.00) mg/dL 01/12/24 01/12/24 01/12/24 Range/Units 00:06 06:07 06:59 Sodium 132 L (137-145) mmol/L BUN 42 H (9-20) mg/dL Glucose 184 H (74-99) mg/dL POC Glucose (mg/dL) 141 H 165 H (70-110) mg/dL Calcium 7.0 L (8.4-10.2) mg/dL Alkaline Phosphatase 244 H (38-126) U/L Total Protein 5.8 L (6.3-8.2) g/dL Albumin 1.9 L (3.5-5.0) g/dL Triglycerides (0.00-149.00) mg/dL HDL Cholesterol (40.00-60.00) mg/dL Microbiology - Last 24 Hours (Table) 01/07/24 12:15 Anaerobic Culture - Final Pleural Fluid 01/07/24 12:15 Gram Stain - Preliminary Pleural Fluid Body Fluid Culture - Preliminary Pseudomonas aeruginosa Alejandra albicans Assessment and Plan Plan: Assessment: 1. Acute kidney injury secondary to ATN secondary to septic shock. Creatinine 0.86 on admission and up to 5.38 dated November 29, 2023. Urine output improved, now nonoliguric. UA fairly benign. No hydronephrosis noted on imaging. Started on hemodialysis November 29, 2023 due to volume overload. Patient initially had a right femoral catheter placed which subsequently became occluded and a left tunneled femoral catheter was placed December 06, 2023. Renal function back to baseline. 2. Perforated small bowel status post exploratory laparotomy with abdominal washout, small bowel resection and J-tube replacement November 25, 2023. 3. A-fib with RVR. s/p amiodarone drip. Also received digoxin this admission. 4. Recently diagnosed gastric B-cell lymphoma. 5. Septic shock. Likely abdominal source. On IV antibiotics. Blood culture positive for staph. ID following. Dialysis catheter removed. 6. Hypocalcemia secondary to acute kidney injury. Replaced. Improved. 7. Metabolic acidosis secondary to acute kidney injury, TPN. 8. Volume overload. Improved with diuresis and ultrafiltration. 9. Status post tracheostomy December 10, 2023. 10. Anemia. Component of chronic illness and acute blood loss. Received blood transfusions and DDAVP this admission. 11. Respiratory and metabolic acidosis status post bicarb drip. ABG today suggestive of respiratory alkalosis. 12. Hypernatremia from lack of oral water intake. Status post D5W. Resolved. 13. Hypokalemia from poor intake. Replaced. Better. Plan: Last dialysis December 18, 2023. No further need at this time. Dialysis catheter removed December 28, 2023. Receiving TPN. Avoid nephrotoxins. Preserved EF noted on echocardiogram. Replace electrolytes as needed. Lasix as needed. Aranesp discontinued as patient does not have CKD. Will see on as-needed basis.
--- NOTE | 2024-01-12 09:43 | XR ---
EXAMINATION TYPE: XR chest 1V portable DATE OF EXAM: 01/12/2024 COMPARISON: 01/11/2024 HISTORY: Chest tube TECHNIQUE: Single frontal view of the chest is obtained. FINDINGS: There is a trach tube unchanged in position. There is a pigtail in the region of the right lower pleu ral space unchanged in position. There is a left-sided PICC line in the SVC/RA junction. There is a M ediport catheter tip in the right atrium, unchanged in position. There has been no significant interval change in the bilateral scattered infiltrates and right effusi on. IMPRESSION: Severe acute cardiopulmonary disease unchanged compared to the prior study. [facility], , 01/12/2024 9:41 AM
--- NOTE | 2024-01-12 11:07 | P.PN ---
Subjective Progress Note Date: 01/12/24 01/06/2024, the patient is being seen for a follow-up. The patient remains off sedation. The patient is arousable. Remains profoundly weak and debilitated. He remains on the mechanical ventilator, assist-control mode with rate of 32, tidal volume of 450, FiO2 of 30% with a PEEP of 5. Chest x-ray shows extensive consolidation of the right lung and right upper lobe opacity with a previously described cavity. Blood gas shows a pH of 7.4 with a pCO2 of 34 pO2 of 93. The patient remains on KVO IV fluids. The patient is on TPN for nutritional support at a rate of 90 cc an hour. Fluid balance is +1.3 L over the past 24 hours. The patient is receiving Dilaudid for pain control. While off Dilaudid, he developed hypertension and overnight the patient was started on Cleviprex at 4 mg an hour. RAYA drain has produced around 40 cc over the past 24 hours. The J- tube is nonfunctional. The wound VAC is still in place. The blood work from today shows a white cell count of 10.6 and hemoglobin of 7.6 and a platelet count of 111. Renal function is normalized and the patient's BUN is 44 with a c reatinine of 0.9. Serum bicarb is at 19 with a chloride of 115 and a sodium level at 137. LFTs are normal with an alkaline phosphatase of 222. The sputum sample was positive for Citrobacter and Pseudomonas. The Pseudomonas aeruginosa was quite resistant and the patient is currently on a combination of ceftolozane and tazobactam. Afebrile. Hemodynamically stable. Cardiac rhythm is sinus. On 01/07/2024, the patient remains off sedation. Somewhat encephalopathic. Extremely weak, occasionally follows some simple commands. Unable to raise his arms against gravity. Continues to have respiratory secretions and coughing episodes specially once the effect of Dilaudid wears off. Remains on a mechanical ventilator. He was able to tolerate pressure support of 12 and a PEEP of 5 for a total of 4 hours yesterday. Overnight, the patient was kept on assist-control mode of mechanical ventilation this morning he is on assist- control of 20, tidal volume of 500, FiO2 of 30% with a PEEP of 5. The patient was placed back on pressure support mode of mechanical ventilation this is being done on a daily basis. Blood gas showed a pH of 7.44 with a pCO2 of 30 and pO2 100. Discussed the case with interventional radiology and the patient has a right lung abscess and the patient is going to have a pigtail catheter inserted today. Renal function is normal. TPN is running at a rate of 90 cc an hour. The J-tube is not being utilized at this point. Fluid balance is +149 cc over the past 24 hours. RAYA drain output is noted. Output is serosanguineous. Wound VAC is in place. The patient remains on Cleviprex at 2 mg an hour and the patient receiving hydralazine 10 mg for blood pressure control every 6 hours. He remains on a broad-spectrum antibiotic coverage and he is on ceftolozane tazobactamBlood work from today shows a WBC count of 11.4, hemoglobin of 7.4 and a platelet count of 145. BUN is 44 with a creatinine of 0.8 and sodium levels at 136 and potassium levels at 3.4. Glucose is 166. 01/08/2024, the patient is sedated on propofol and the patient is also paralyzed on Nimbex. Propofol during 50 mcg/kg/min and Nimbex at 4 mcg. The patient had to be sedated and paralyzed as the patient had frequent coughing spells to the point where the patient was unable to ventilate while being on the mechanical ventilator. Noted he had a pigtail catheter inserted yesterday. Pus was drained from his right hemithorax and a total amount of output is around 90 cc over the past 12 hours no purulent material and the patient has a positive airleak. The chest x-ray is still showing an area of consolidation which is quite extensive in the right lung with some improvement in the aeration of the right lung. Tracheostomy tube is in good location. A bronchoscopy was done. Unable to locate a bronchopleural fistula. Therapeutic airway suctioning was done. Respiratory secretions were suctioned out and sent for cultures. The right lung abscess was also sent for cultures. Currently on assist-control at rate of 20, tidal volume of 500, FiO2 of 30% with a PEEP of 5. Blood gas showed pH of 7.25 with a pCO2 of 50 and pO2 of 76. A white cell count of 17.3 with a hemoglobin 7.1 and a platelet count of 157. His sodium level is at 135, potassium levels at 3.4, bicarb is at 19 with a BUN of 45 with a creatinine of 0.8. Phosphorus is at 2.9, magnesium is at 1.8. Blood sugars of 208. He remains on ceftolozane/tazobactam. RAYA drain is still in place. Wound VAC is still in place. Receives TPN for nutritional support. The patient is not receiving enteral feeding. The J-tube is nonfunctional. 01/09/2024, the patient was taken off the paralytics and the patient was taken off the propofol this morning. He is calm and comfortable. Cough is less. Pigtail is draining total of 300 cc of purulent material since insertion and 220 cc over the past 24 hours. There is positive air leak. Chest x-ray remains unchanged. No pneumothorax. Tracheostomy tube is in good location. Patient is currently on assist-control mode rate of 20, tidal volume of 500, FiO2 30% with a PEEP of 5. Blood gas showed a pH of 7.4 with a pCO2 of 40 and pO2 of 75. The patient was given bicarb infusion overnight and the patient serum bicarb has improved. Remains on TPN for nutritional support at a rate of 90 cc an hour. The white cell count of 15.3 with a hemoglobin 7.3. The serum bicarb is at 24. Chloride is 111 and a potassium level is at 3.6 and a sodium levels at 137. Remains on ceftolozane/tazobactam. ID is on the case for further antibiotic modification. Most recent Pseudomonas that was cultured from the lungs was sensitive to quinolones. RAYA drain is in place. The J-tube is nonfunctional. The patient continues to be on TPN for nutritional support. 01/10/2024, the patient is on low-dose Precedex. Currently comfortable, sensitive to mechanical ventilator. Output from the pigtail has dropped and the patient continues to have a positive airleak. The chest x-ray shows bilateral consolidation worse on the right and there is a small right apical pneumothorax. Pigtail catheter is in a good location. Blood gas showed a pH of 7.48 with a pCO2 of 35 and a pO2 of 83. He is on assist-control mode with rate of 20, tidal volume of 600, FiO2 30% with a PEEP of 5. RAYA drain output is serosanguineous. TPN is at 90 cc an hour. Fluid balance is -700 cc. The white cell count is at 15.4, hemoglobin is at 6.7 and the patient was given a unit of packed RBC and a platelet count is 188. Electrolytes show a BUN of 46 with a creatinine of 0.7, sodium of 135, potassium level of 3.3. Antibiotics has been modified to a combination of ciprofloxacin and tobramycin as the patient showed quinolone sensitive Pseudomonas in the sputum and in the drain the abscess from the right lung. 01/11/2024, the patient is being seen for a follow-up. Patient is currently on low-dose Precedex at 0.2 mcg/kg/min. Calm and comfortable, no significant coughing. Remains on the mechanical ventilator./On the same vent setting which includes assist-control of 20, tidal volume of 600, FiO2 30% with a PEEP of 5. Chest x-ray shows a right apical pneumothorax, extensive consolidation of the right lung and some limited consolidation in the left and the catheter is in place with purulent output. There is also possibility through the pigtail catheter. Tracheostomy tube is in good location. Remains on tobramycin and ciprofloxacin. The white cell count of 13.6, hemoglobin 8.4 and platelet count is at 208. Blood gas from today showed a pH of 7.48 with a pCO2 of 33 and pO2 o f 93. Sodium is at 134, potassium is at 3.7, BUN is 44 with a creatinine of 0.8. LFTs are normal and the patient has an alkaline phosphatase of 233 as the patient continues to receive TPN for nutritional support. Triglyceride levels at 187. Otherwise, no other significant changes condition. Cardiac rhythm remains sinus. The patient is producing adequate amount of urine output. Extremely debilitated, extremely weak, J-tube is not functional and there is leak around the J-tube. The patient was seen again by general surgery and there is no plan to exchange the J-tube. Concern of some leak around the J-tube and based on that an ostomy appliance will be applied around the J-tube. On 01/12/2024, clinically unchanged, remains on Precedex at 0.7 mcg/kg/h. Remains on TPN for nutritional support. Remains on same ventilator settings with assist-control mode rate of 20, tidal volume of 500, FiO2 30% with a PEEP of 5. No blood gases are available from today. Repeat chest x-ray shows stable findings. Stable right apical pneumothorax. Consolidation involving the right lung and the left base remains unchanged. Sputum sample was positive for Pseudomonas aeruginosa and the patient remains on a combination of ciprofloxacin and tobramycin. The patient has positive air leak in his pigtail catheter and total amount of output overnight and over the past 12 hours has been in the orde r of 80 cc. Extremely debilitated. Extremely weak. Not coherent although arousable. Objective - Vital Signs Vital signs: Vital Signs Temp 97.7 F 01/12/24 08:00 Pulse 83 01/12/24 11:00 Resp 30 H 01/12/24 11:00 BP 112/68 01/12/24 11:00 Pulse Ox 97 01/12/24 11:00 FiO2 30 01/12/24 08:43 Intake & Output 01/11/24 01/12/24 01/12/24 18:59 06:59 18:59 Intake Total 6043.970 4608.797 771.763 Output Total 1565 2025 725 Balance -393.949 0908.797 46.763 Weight 104.2 kg Intake: IV 55 450 225 0.9 Normal Saline @ KVO 55 50 25 Ciprofloxacin/Dextrose 400 Pmx 400 mg In Dextrose/ Water 1 200ml.bag @ 200 mls/hr IVPB Q8H [facility] Rx#: [id number] Potassium Chloride 10 meq 200 In Water For Injection 1 100ml.bag @ 100 mls/hr IVPB Q1H [facility] Rx#: [id number] Intake, IV Titration 909.885 2951.797 96.763 Amount Dexmedetomidine/0.9% NaCl 196.157 190.797 96.763 (Pmx) 400 mcg In Empty Bag 1 bag @ 0.2 MCG/KG/HR 5.2 mls/hr IV .[id number] [facility] Rx#:[id number] Mvi, Adult No.4 with Vit 2067 K 10 ml Trace (Conc-1Ml/ Dose) 1 ml Sodium Acetate 48 meq Magnesium Sulfate gm 2 gm Calcium Gluconate 1 gm Potassium Phosphate 24 mmol Potassium Acetate 20 meq In Amino Acids 5 %/ Dextrose 20 % 2,000 ml @ 90 mls/hr IV .[id number] [facility] Rx#:[id number] TPN/PPN 990 1080 450 TPN 990 1080 450 Output: Chest Tube Drainage 50 40 Chest Tube Right 50 40 Drainage 60 Right Abdomen 60 Urine 1515 3879 725 Other: Voiding Method Indwelling Catheter Indwelling Catheter Indwelling Catheter ABP, PAP, CO, CI - Last Documented Arterial Blood Pressure 173/76 - Exam No acute distress, opening of his eyes, not responding to commands, off Nimbex and off propofol, on the mechanical ventilator. The patient has a tracheostomy tube in place. HEENT examination is grossly unremarkable. Mucous membranes are moist. No oral lesions.. The patient also has a tracheostomy tube in place and the patient has a #8 Shiley tracheostomy tube. Cardiac exam revealed the PMI to be normally situated and sized. The rhythm was regular and no extrasystoles were noted during several minutes of auscultation. The first and second heart sounds were normal and physiologic splitting of the second heart sound was noted. There were no murmurs, rubs, clicks, or gallops. The patient is in sinus tachycardia. Lungs reveal mild scattered rhonchi. No wheezes or crackles. Breath sounds equal. Diminished breath sound lung base bilaterally. Pigtail catheter in the right chest posteriorly located with positive output and positive airleak on the Pleur-evac. Abdomen distended without bowel sounds. J-tube is noted. Mid abdominal wound is covered with a wound VAC and a RAYA drain in place and output is serosanguineous. Extremities are intact. No cyanosis clubbing trace edema lower extremities bilaterally Skin is without rash or lesion. The wound at the Mediport site is dry and the area has been sutured and the site is clean for now. Neurologic examination is brief but nonfocal. Currently, the patient is still sedated while being off propofol. - Labs CBC & Chem 7: 01/11/24 02:45 01/12/24 06:59 Labs: Abnormal Lab Results - Last 24 Hours (Table) 01/11/24 01/11/24 01/11/24 Range/Units 04:30 11:35 17:33 Sodium (137-145) mmol/L BUN (9-20) mg/dL Glucose (74-99) mg/dL POC Glucose (mg/dL) 156 H 162 H (70-110) mg/dL Calcium (8.4-10.2) mg/dL Alkaline Phosphatase (38-126) U/L Total Protein (6.3-8.2) g/dL Albumin (3.5-5.0) g/dL Triglycerides 187.00 H (0.00-149.00) mg/dL HDL Cholesterol 10.50 L (40.00-60.00) mg/dL 01/12/24 01/12/24 01/12/24 Range/Units 00:06 06:07 06:59 Sodium 132 L (137-145) mmol/L BUN 42 H (9-20) mg/dL Glucose 184 H (74-99) mg/dL POC Glucose (mg/dL) 141 H 165 H (70-110) mg/dL Calcium 7.0 L (8.4-10.2) mg/dL Alkaline Phosphatase 244 H (38-126) U/L Total Protein 5.8 L (6.3-8.2) g/dL Albumin 1.9 L (3.5-5.0) g/dL Triglycerides (0.00-149.00) mg/dL HDL Cholesterol (40.00-60.00) mg/dL Microbiology - Last 24 Hours (Table) 01/07/24 12:15 Anaerobic Culture - Final Pleural Fluid 01/07/24 12:15 Gram Stain - Preliminary Pleural Fluid Body Fluid Culture - Preliminary Pseudomonas aeruginosa Alejandra albicans Assessment and Plan Plan: Acute hypoxemic respiratory failure with failure to wean from mechanical ventilation, S/P tracheostomy on December 10, 2023. The patient has bilateral pneumonia with a cavitary infiltrate in the right upper lobe, secondary to Pseudomonas aeruginosa and Citrobacter and the patient is currently on a combination of ceftolozane/tazobactam. CAT scan of the chest done on 12/17/2023 was reviewed and the patient has a cavitating cyst/abscess in the posterior aspect of the right upper lobe in addition to patchy opacities bilaterally right more than left consistent with pneumonia,/gram-negative pneumonia. The patient had a pigtail catheter inserted with drainage of the right lung abscess. The bronchial washing is positive for Pseudomonas aeruginosa, quinolone sensitive and the cultures from the pigtail catheter/lung abscess was also positive for Pseudomonas aeruginosa.. Chest x-ray findings are essentially unchanged, stable consolidation of the right lung and the pigtail remains in good location. The patient has a tiny right apical pneumothorax. There is positive air leak. The patient is currently on a combination of tobramycin and ciprofloxacin. Right apical pneumothorax with ongoing airleak through the pigtail catheter, suspect a bronchopleural fistula in addition. Episodes of vigorous coughing while being on spontaneous breathing. Failed weaning. Mild respiratory alkalosis Hospital-acquired right lung pseudomonal/Klebsiella pneumonia. Patient is currently on IV Cipro and Tobra. Chest x-ray from remains unchanged. Respiratory secretions are copious. Coughing episodes have subsided while being on Precedex. Cough, subsided, continues to have respiratory secretions. Rule out underlying bronchopleural fistula. Bronchoscopy was completed. 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 Small bowel perforation with abdominal contamination. The patient is status post expiratory laparotomy and small bowel resection and insertion of another jejunostomy tube. The patient jejunostomy is not functional and remains clogged and this was unclogged yesterday. Nevertheless, the tube itself is still malfunctioning. However, the abdominal wound is dehisced and is infected. RAYA drain output is serosanguineous. A wound VAC was applied to the anterior abdominal wall. Peritonitis secondary to above, recovered Septic shock secondary to above, the patient is currently off pressors Atrial fibrillation with rapid medical response, currently back into normal sinus rhythm . Acute kidney injury, off hemodialysis and renal function has normalized History of acute aspiration during upper endoscopy most likely secondary to gastric outlet obstruction secondary to non-Hodgkin's lymphoma. weight loss most likely secondary non-Hodgkin's lymphoma involving the stomach. 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 Malfunctioning of the J-tube, currently on TPN for nutritional support Hypertension Plan Not a whole lot can be added on this patient's case. The average distance and symptoms of his progress. He continues to receive antibiotics. There is a tiny pneumothorax in the right apex and the patient continues to drain from his pigtail catheter, pleural bacteria. He is vent dependent. Efforts to put him to a pressure support spontaneous breathing has failed because of increased shortness of breath and vigorous coughing. Continue ventilator support. Dropped a tidal volume to 500 Continue Precedex and titrate the dose Bronchoscopy was done, unable to find a fistula although the possibility of bronchopleural fistula cannot be completely ruled out as the patient continues to have purulent secretions and frequent coughing episodes. He does have a positive air leak in his pigtail catheter. output is adequate from the pigtail catheter. No plans for alteplase administration as the patient has positive air leak and right-sided pneumothorax. Cultures from the right lung abscess and sputum was sent and the sputum sample was positive for Pseudomonas aeruginosa, quinolone sensitive. Continue IV ciprofloxacin/tobramycin The J-tube is nonfunctional and the patient is on TPN for nutritional support, ostomy will be applied around the J-tube. IV fluids to KVO Monitor fever pattern General Surgery is on the case regarding abdominal wound Condition remains extremely critical with poor prognosis based on the above Will continue to follow this patient along with the rest of the consultants. Condition is critical over the poor outcome based on the above. Evaluation was done more than 30 minutes. I had a lengthy discussion with the . Explained to them the poor prognosis. May not be reasonable to consider hospice at this point in time. Family will give it a thought and will discuss this with family members. Awaiting final decision from family regarding goals of treatment and future care. Prognosis remains extremely poor. Time with Patient: Greater than 30
[2024-01-12 11:35] LABS: Glucose,Whole Blood 152 mg/dL (70-110)
[2024-01-12] MEDS: FLUCONAZOLE IN NACL,ISO-OSM 200 MG in SALINE 1 100ML.BAG IVPB SCH (15:05)
--- NOTE | 2024-01-12 15:05 | P.PN ---
Subjective Progress Note Date: 01/12/24 Principal diagnosis: Reason for follow-up is pneumonia and bacteremia Patient is 73-year-old with male initial presentation to the hospital on 11/11/2021 for after the patient did have aspiration while undergoing elective endoscopy, diagnosed with a non-Hodgkin of, subsequently did have explained laparotomy for perforated small bowel abdominal washout and feeding jejunostomy tube patient did require dialysis catheter placement for dialysis during this hospital stay and tracheostomy for respiratory failure, infectious was consulted for fever. On today's evaluation that is 01/12/2024, Patient continues to be afebrile, the patient remains to be intubated on the vent FiO2 stable at 30% no significant purulent secretion patient is not requiring any pressor support no other changes reported. Patient did have a creatinine 0.86 sensitivities on the Pseudomonas from the pleural fluid has been finalized which is sensitive to Zerbaxa patient previously was on and also sensitive to Cipro and tobramycin culture also growing Alejandra albicans Objective - Vital Signs Vital signs: Vital Signs Temp 97.2 F L 01/12/24 12:00 Pulse 80 01/12/24 12:19 Resp 33 H 01/12/24 12:00 BP 116/78 01/12/24 12:00 Pulse Ox 98 01/12/24 12:00 FiO2 30 01/12/24 12:13 Intake & Output 01/11/24 01/12/24 01/12/24 18:59 06:59 18:59 Intake Total 7034.272 6681.797 957.156 Output Total 1565 2025 875 Balance -701.176 7555.797 82.156 Weight 104.2 kg Intake: IV 55 450 230 0.9 Normal Saline @ KVO 55 50 30 Ciprofloxacin/Dextrose 400 Pmx 400 mg In Dextrose/ Water 1 200ml.bag @ 200 mls/hr IVPB Q8H [facility] Rx#: [id number] Potassium Chloride 10 meq 200 In Water For Injection 1 100ml.bag @ 100 mls/hr IVPB Q1H [facility] Rx#: [id number] Intake, IV Titration 251.214 7716.797 187.156 Amount Dexmedetomidine/0.9% NaCl 196.157 190.797 187.156 (Pmx) 400 mcg In Empty Bag 1 bag @ 0.2 MCG/KG/HR 5.2 mls/hr IV .[id number] [facility] Rx#:[id number] Mvi, Adult No.4 with Vit 2067 K 10 ml Trace (Conc-1Ml/ Dose) 1 ml Sodium Acetate 48 meq Magnesium Sulfate gm 2 gm Calcium Gluconate 1 gm Potassium Phosphate 24 mmol Potassium Acetate 20 meq In Amino Acids 5 %/ Dextrose 20 % 2,000 ml @ 90 mls/hr IV .[id number] [facility] Rx#:[id number] TPN/PPN 990 1080 540 TPN 990 1080 540 Output: Chest Tube Drainage 50 40 Chest Tube Right 50 40 Drainage 60 Right Abdomen 60 Urine 1515 1925 875 Other: Voiding Method Indwelling Catheter Indwelling Catheter Indwelling Catheter ABP, PAP, CO, CI - Last Documented Arterial Blood Pressure 173/76 - Exam GENERAL DESCRIPTION: An elderly male lying in bed in no distress RESPIRATORY SYSTEM: Unlabored breathing , decreased breath sounds at bases HEART: S1 S2 regular rate and rhythm , ABDOMEN: Soft , no tenderness EXTREMITIES: No edema feet - Labs CBC & Chem 7: 01/11/24 02:45 01/12/24 06:59 Labs: Abnormal Lab Results - Last 24 Hours (Table) 01/11/24 01/12/24 01/12/24 Range/Units 17:33 00:06 06:07 Sodium (137-145) mmol/L BUN (9-20) mg/dL Glucose (74-99) mg/dL POC Glucose (mg/dL) 162 H 141 H 165 H (70-110) mg/dL Calcium (8.4-10.2) mg/dL Alkaline Phosphatase (38-126) U/L Total Protein (6.3-8.2) g/dL Albumin (3.5-5.0) g/dL 01/12/24 01/12/24 Range/Units 06:59 11:33 Sodium 132 L (137-145) mmol/L BUN 42 H (9-20) mg/dL Glucose 184 H (74-99) mg/dL POC Glucose (mg/dL) 152 H (70-110) mg/dL Calcium 7.0 L (8.4-10.2) mg/dL Alkaline Phosphatase 244 H (38-126) U/L Total Protein 5.8 L (6.3-8.2) g/dL Albumin 1.9 L (3.5-5.0) g/dL Microbiology - Last 24 Hours (Table) 01/07/24 12:15 Anaerobic Culture - Final Pleural Fluid 01/07/24 12:15 Gram Stain - Preliminary Pleural Fluid Body Fluid Culture - Preliminary Pseudomonas aeruginosa Alejandra albicans Assessment and Plan (1) Sepsis Current Visit: Yes Status: Acute Code(s): A41.9 - SEPSIS, UNSPECIFIED ORGANISM SNOMED Code(s): 18801566 (2) Pneumonia Current Visit: Yes Status: Acute Code(s): J18.9 - PNEUMONIA, UNSPECIFIED ORGANISM SNOMED Code(s): 688565247 (3) Bacteremia Current Visit: Yes Status: Acute Code(s): R78.81 - BACTEREMIA SNOMED Code(s): 2541822 Plan: 1patient with pneumonia with a sputum showing Citrobacter and Pseudomonas aeruginosa, the patient sputum repeat is still growing Citrobacter and Pseudomonas, Pseudomonas that is a drug-resistant and resistant to Zosyn, s ubsequently did have new findings of lung abscess on the CT status post drainage catheter placement by interventional radiology subsequently did have purulent pleural fluid which has been cultured did have a chest tube and is growing Pseudomonas with sensitivities pending sputum did grew multidrug-resistant Pseudomonas aeruginosa. 2-patient also have evidence of retro vesicular abscess on the CT abdominal pelvis, this has been discussed with the surgical team on the case in person however mention patient would not be able to tolerate any further surgery. 3patient pleural fluid cultures are growing Pseudomonas aeruginosa that is sensitive to Zerbaxa as well as tobramycin and Cipro and also growing Alejandra albicans 4patient to continue with IV Cipro and tobramycin creatinine has been normal and will add Diflucan to cover for the Alejandra albicans Dictation was produced using [employer] dictation software. please excuse any grammatical, word or spelling errors. Time with Patient: Less than 30
--- NOTE | 2024-01-12 17:29 | P.PN ---
Progress Note - Text Progress Note Date: 01/12/24 Chief Complaint: On the ventilator This is a 73-year-old patient, follows with Dr. Patricia Deal. Patient was seen this morning in the ICU. Patient's and daughter at the bedside. History obtained predominantly by the . Patient been having trouble with his stomach symptoms for close to 8 months. Patient underwent EGD by Dr. Sahara Cheng yesterday. Patient was found to have ulcerated around the antrum and obstruction to the pylorus. A lot of retained food was found. Patient aspirated. Had to be intubated and brought to the ICU. On a Levophed drip. FiO2 50 and a PEEP of 6. Patient had been losing weight lost about 25 pounds. Previously has a history of mitral valve prolapse. November 13: ICU. Patient remains on Precedex drip and propofol drip. Did not do well attempted extubation yesterday. Patient been off Levophed. NG tube to suction. Spoke to patient's and son at the bedside. Biopsy results awaited. Hemoglobin dropped to 6.9 this morning. Get a unit of blood. November 14: ICU. Up in a chair. Extubated yesterday. NG tube to suction. at the bedside. 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 Oncology was consulted. They have ordered a port. Results discussed with Dr. Sahara Cheng. General surgery was consulted for J-tube placement. Discussed with at the bedside. Patient getting IV fluids, IV Zosyn,. Patient has been on IV amiodarone for A-fib-back in sinus rhythm. Multiple PACs. Did receive unit of blood yesterday. Also IV ferric gluconate. November 15: ICU. Patient earlier today underwent jejunostomy tube placement and a port placement. Patient awake. Answering questions. NG tube to suction present. Updated patient's . Patient remains on IV amiodarone and IV Zosyn. November 16: ICU. Up in the chair. NG tube present but not to suction. Trickle feeding through the jejunostomy tube should be started today. Dietitian has been on board. IV Zosyn to continue. Patient's and his sister at the bedside. Discussed. Also spoke with Dr. Serna. Given patient has no other predisposing cardiac factors for the A-fib except acute illness. His LV function is normal. Left atrium is normal. He has already been loaded with IV amiodarone. Will switch him to oral Lopressor 12.5 twice daily. Hence will DC amiodarone. Patient yesterday had wheezing was put on bronchodilators steroids per pulmonary. November 17: Propped up in bed. NG tube was discontinued. Sinus rhythm. Remains NPO. Getting G-tube feeding at 40 cc an hour. Dietitian following. Get arrangements done for DC home tomorrow including tube feeding. Increase activity discussed with patient and elder daughter at the bedside. Still requiring oxygen. Incentive spirometry. November 18: Patient up in recliner. Earlier today spoke to social security assessor David. Informed patient is rather weak and will be going to the [facility]. Looking at authorization. Denae came to the room and spoke to patient his and his daughter. They are very keen to take the patient home as 3 daughters all nurses and they will take care of him at home. Patient earlier today to abdominal cramping and some loose stools.'s tube feeding was held. Told the nurse to start back at the rate of 40 cc an hour. He was before the getting it at 55 cc an hour. Incentive spirometry was again emphasized. Patient remains on 4 L of oxygen. November 19: I saw the patient this morning. Hence I am in the evening. Morning was sitting with his sons. Has some edema. Lungs had crackles I gave him 40 mg of Lasix. He did make good urine. Tube feeding was held from the p revious evening of because of abdominal cramping. Acute abdominal series showed nonspecific bowel gas pattern and SBO to be ruled out. Family and patient was updated. Told him discharge will depend on day by day. Later this afternoon CT scanAnd abdomen pelvis done. Showed small bowel to be 3 point centimeter dilated. Some anasarca. Gastric findings. Gallstones. Later spoke to Dr. Irby from general surgery. They will further review and decide about further plan of action. Will give further dose of IV Lasix because of fluid overload from likely hypoalbuminemia and IV fluids previously received. Patient may take his pills by mouth. Total time spent today about 1 hour with over 40 minutes of discussion. Patient did state his breathing is better after Lasix this morning. November 20: Saw the patient this morning. was present. Patient received 2 more doses of Lasix. Diuresed well. Breathing much better. Lungs are sounding better. Discussed with Dr. Zepeda other surgeon. He is taking 3 cc out of the balloon and the gastrostomy tube. Started trickle feeding at 5 cc an hour. Will see how this does. Later in the day ran into the and the daughter again. Did update them on the same. Dilaudid was discontinued yesterday but morphine was ordered by surgery for patient having pain. Concerns about GI issues with that we will DC the morphine. As family does not want the same. November 21: Patient reclining bed. Tired. Several family members at the bedside. Including his and eldest daughter. Patient started on trickle feed yesterday at 5 cc an hour. This morning he has been on 10 cc an hour. Still having some loose stools. C. difficile was ordered. Patient on 2 L of nasal cannula. Has diuresed well. Will give an additional dose of Lasix today. If C. difficile is negative and the diarrhea is from the tube feedings we may have to use a fecal management system to keep him comfortable. Otherwise patient remains NPO. Dietitian is following the patient. Care was discussed length with patient the and daughter at the bedside. Questions answered. Liquid Tylenol has been added for abdominal pain. Avoid narcotics. Elevated white count likely from Solu-Medrol 11/23/2023--patient was feeling better today. Multiple family member at bedside. No issues overnight. Normal saline at 10 cc an hour, tube feeding at 20 cc an hour, remains on Zosyn, on 3 L oxygen. Afebrile. Heart rate 62, respiratory rate 16, blood pressure 114/67, saturating 91% on 3 L. WBCs 14.5, 9.7 hemoglobin. Platelet 242. BMP is unremarkable. Pulmonary and general surgery following. General surgery recommended to continue tube feeds at 20 cc/h. 11/24/2023--patient reported significant abdominal discomfort, also noted to have leak around G-tube. General surgery is following, evaluated the patient at bedside, adjusted tube feeds. Also reported having diarrhea, on 2 L oxygen, went up to 5 L. Blood pressure was low, 500 mL fluid bolus with close monitoring of respiratory status ordered. Currently on DuoNebs, Solu-Medrol, will continue Zosyn. Chest x-ray showed a left lower lobe infiltrate. Abdominal x-ray showed multiple air-fluid levels. CT abdomen showed multiple dilated small bowel loops, consistent with obstruction, pneumoperitoneum, cholelithiasis and ascites. WBCs 14.1, platelet 255, hemoglobin 8.9. NG tube in place. Family at bedside. patient transferred to SICU for close monitoring. 11/25/23--patient is currently in the ICU, required Levophed overnight due to low blood pressure, low urine output with creatinine trending up. Nephrology following. Solar Site Assessment Specialist also following. Patient remains n.p.o., NG tube in place, following NG tube insertion patient had total of 2 L output, J-tube was draining approximately 200 cc over last 8 hours, continues to have abdominal pain and abdominal tenderness. Patient on IV fluids. Currently on 4 L oxygen. WBCs 8.2, hemoglobin 12.3, platelet 188. Chest x-ray earlier today showed right sided port and a stable left lung airspace disease, NG tube in place. Patient currently on Zosyn, on IV Dilaudid for pain control, on IV Solu-Medrol. General surgery planning for OR today, started on TPN. 11/26/23--patient was seen and examined today. Patient is currently sedated, intubated on mechanical ventilation. Family at bedside. Patient underwent ex lap, abdominal washout, small bowel resection with new feeding jejunostomy tube placement yesterday, small bowel was noted to be perforated with significant contamination of abdominal cavity. Patient is currently on vancomycin and Zosyn. Creatinine went up to 2.85, nephrology following, recommended to continue IV fluids, avoid nephrotoxin Preserved EF on echocardiogram.. Patient currently on Levophed, vasopressin in the ICU for close monitoring. Patient is afebrile, heart rate 122, blood pressure 129/76, currently on mechanical ventilation, sedated. November 26: ICU. Intubated. FiO2 60 and a PEEP of 5. Drips include IV amiodarone. Heart rate was up early did get fired microgram of IV digoxin and 2.5 mg of IV Lopressor. Did drop her blood pressure bit. Urine output was low. Received 80 mg of IV Lasix. Ahmet to 150 cc. Other drips include IV propofol, vasopressin, Levophed. TPN was started yesterday. Antibiotics include IV Zosyn and vancomycin. Patient has a J-tube to drainage to gravity. Spoke to patient's younger daughter and at the bedside. Prognosis guarded. Continue current treatment plan. Chest x-ray shows right lower lobe consolidation. Small pleural effusion. November 27: ICU. Intubated. FiO2 55 and a PEEP of 5. Antibiotics include IV vancomycin. Drips include Levophed at a small dose, IV vasopressin, propofol, amiodarone. Patient converted to sinus rhythm this morning. Getting TPN and normal saline at 75 cc an hour. Urine output about 25 cc an hour. RAYA drain put out about 260 cc last 12 hours that is last night patrol inspector. NG tube with bilious output. And also GI J-tube output to gravity. Spoke to patient's and daughter at the bedside. They understand patient still not out of the kee. Platelets have dropped-therefore probably Zosyn stopped. November 28: ICU. Intubated. FiO2 55 and a PEEP of 5. Patient is in sinus rhythm. Seen this morning. Due for dialysis catheter this afternoon. Urine output about 15 to 20 cc an hour. Patient is on IV Lasix 80 mg every 12. Saline is KVO. Drips include IV propofol vasopressin. Patient having significant output through the RAYA drain and the jejunostomy tube to drainage. Creatinine had been getting worse. Patient's at the bedside. Understands patient's remains critically ill. Hemoglobin is down to 7. Given that patient's pain hypotensive, and on vasopressin we will give a unit of blood with dialysis. Getting TPN antibiotic changed to IV meropenem November 29: ICU. Intubated. FiO2 55 and a PEEP of 5. Remains in sinus rhythm. Getting TPN. Dialyzed yesterday and this morning. About 1000 cc removed. Urine output about 50 cc an hour. Patient is on IV propofol. Off vasopressin. Still having significant output through the RAYA drain and jejunostomy tube. Patient received a second unit of blood yesterday. Patient's and daughter at the bedside. I did discuss guarded prognosis. Did asked them to revisit CODE STATUS.. Getting IV meropenem. November 30: ICU. Intubated. Did get a sedation holiday t today. Back on propofol. Getting TPN. Still getting IV Lasix. Fair urine output. Jejunostomy tube in last 8 hours was about 30 cc output. RAYA drain in the 8 hours had about 180 cc output. Telemetry shows sinus rhythm. NG tube has low intermittent suction with negative output. On the vent with FiO2 40 and a PEEP of 5. No hemodialysis today. Discussed with the and eldest daughter at the bedside. IV meropenem-patient's sputum had grown Citrobacter freundii and Pseudomonas aeruginosa. December 01: ICU. Intubated. Jejunostomy tube to gravity. Only 10 cc output in last 24 hours. RAYA drain. About 190 cc last 6 hours. Nasogastric tube to low intermittent suction. Minimal output. Patient is on a small dose of propofol 5 mics. Telemetry shows sinus rhythm. Patient started on small dose of Cleviprex this morning. Blood pressure. Getting TPN. FiO2 35 and PEEP of 5. Discussed with the at the bedside. Hemodialysis today December 02: ICU. Patient remains intubated. FiO2 35 PEEP of 5. Patient is on IV propofol. IV Cleviprex was discontinued yesterday. Also remains on TPN. Telemetry shows sinus rhythm. NG tube is good no output. Still significant output through the RAYA drain. Jejunostomy tube has minimal output. Patient had hemodialysis today 2 L of fluid was removed. Oral half liters yesterday. Patient getting a sedation holiday. General Surgery started the patient on trickle feeding at 10 cc an hour. I did speak to patient's at the bedside. Prognosis remains guarded but there is some improvement. December 03: ICU. Intubated. FiO2 35 PEEP of 5. Drips include IV propofol and Precedex. Getting TPN. Telemetry shows sinus rhythm. Remains on IV Lasix 80 mg twice a day. IV meropenem. Because patient gets easily agitated when transitioning off propofol he has been switched over to Precedex. For hemodialysis today. December 04: ICU. Intubated. FiO2 35 and a PEEP of 5. Patient been taken off propofol is on Precedex. Telemetry sinus rhythm. J-tube with minimal output. RAYA drain with decreased output. NG tube to suction minimal output. Family wanted to hold off trickle feeding until cleared by oncology. Which he did today. Trickle feeding will be started today. Spoke to patient's and one of the daughters at the bedside. Dr. Russ is spoken to the earlier this point they want to do further tracheostomy tube. October 4: ICU. Intubated. FiO2 35 PEEP of 5. Patient remains on Precedex and PPN. Patient's dialysis catheter was not functioning is getting another [address] Bobby this afternoon. Remains on IV meropenem. Has a RAYA drain in the jejunostomy tube to gravity. NG tube to low intermittent suction. No family at the bedside. December 06: ICU. Intubated. FiO2 35 PEEP of 5. RAYA drain putting out about approximately 120 cc per shift. Patient on IV Precedex. FiO2 35 PEEP of 5. Telemetry-sinus rhythm. Patient occasionally been put on small dose of Levophed specially for hemodialysis getting it today. Also started on midodrine for low blood pressure. Tolerating tube feeding at 10 cc an hour. Also had a bowel movement. Mentation has not improved. Even with sedation holiday. Neurology consulted. CT brain shows no acute process. December 07: ICU. Intubated. FiO2 35 PEEP of 5. Telemetry-sinus rhythm. NG tube to suction low intermittent minimal output. Getting TPN. Tube feeding at 20 cc an hour. RAYA drain averaging over 100 cc per shift. Remains on Precedex. EEG was done today. Discussed with at the bedside. Family is currently not inclined for tracheostomy tube today. Day 13 of being intubated December 08: ICU. Intubated. FiO2 35 PEEP of 5. Patient is put on back on propofol per plasterer rough Dr. JIMENEZ. EEG did show some potential for spikes was put on Keppra by neurology. Telemetry shows sinus rhythm. NG tube to suction with no output. Tube feeding was put on hold because of questionable discharge on the site. Being restarted today. RAYA drain is 150 cc last 12-hour shift. Patient does open eyes. Family has decided to proceed with tracheostomy and surgery has been consulted for the same. Spoke to the at the bedside. For hemodialysis today. December 09: ICU. Intubated FiO2 35 PEEP of 5. Patient seen this morning. Pending tracheostomy placement this afternoon. Remains NPO. G-tube feeding was held overnight. RAYA drain putting out about 100 cc per shift. Received a unit of blood for hemoglobin of 6.6. On 25 mics of propofol. Getting TPN and meropenem. Spoke to the at the bedside. Patient became hypotensive with dialysis yesterday. Levophed had to be given. Only 800 cc were removed yesterday. No hemodialysis today. December 10: ICU . FiO2 35, PEEP 5. Tracheostomy was done yesterday by Dr. Ewing. G-tube feeding was started today at 10 cc an hour. Dietitian following. RAYA drain 12-hour shift overnight put out about 30 cc. Patient hemodialysis today about 1 L removed. Patient has a sacral stage II decub with a dressing. On propofol 20 mics. Spoke to at the bedside. TPN. Meropenem was discontinued yesterday. December 11: ICU. FiO2 35 PEEP of 5. Tracheostomy. NG tube was discontinued. No hemodialysis today. Telemetry shows sinus rhythm. J-tube feeding at 40 cc an hour. TPN was discontinued. Patient has been off propofol also. PICC line in place. Patient had a EEG done today. Spoke to patient's elder daughter at the bedside. May open eyes occasionally. Not really following commands December 12: 73-year-old white male with history of chronic abdominal pain for the last 8 months has been treated with Protonix 40 mg daily for the last 3 months with no improvement. Patient had a 22 pound weight loss in the last [address] of the abdomen and pelvis 3 weeks ago showed thickening of the antral wall with pathological adenopathy posterior to the stomach suspicious of neoplasm. Today the patient underwent elective upper endoscopy to evaluate further, patient received IV sedation by anesthesia endoscope was inserted into the mouth, esophagus was intubated without any difficulty there was evidence of large amount of liquid and solid food noted in the stomach suggestive of gastric outlet obstruction. Scope could not be advanced through the pylorus, however in the prepyloric area there was a large superficial ulceration identified with multiple biopsies were done from this area. The body cardia and fundus could not adequately visualize because of large amount of retained food in the s tomach. Scope was withdrawn back to the stomach and upon careful examination the mucosa of the antrum body and cardia as well as the fundus appeared normal. Procedure was being performed and biopsies were done patient threw up and subsequently became hypoxic there was clearly evidence of witnessed aspiration anesthesia intubated the patient, procedure was terminated, and the patient was transferred to the ICU, this consult was initiated. Patient is now on assist- control rate of 20 tidal volume 500 FiO2 70% PEEP of 10 ABG is pending, earlier ABG showed profound hypoxia patient is on propofol at 50 mcg/kg/min, next ABG is pending. Chest x-ray showed chronic changes without evidence of acute pulmonary disease. 12/14/2023 Patient remains in the ICU, generally weak Patient s/p tracheostomy G-tube in place Patient still has fever and mild tachycardia but tachycardia is improving, leukocytosis improving as well. Hemoglobin 8.1. Creatinine 3.0 and nephrology team on the case. He has mild transaminitis. He was getting Zosyn which is held now, nowCalcitonin is pending 12/14 Patient shon in the ICU, he is still encephalopathic and does not follow command. Neurology service following closely. He is status post tracheostomy. Also J-tube His abdomen looks soft and on exam he has mild coarse secretions. Has a Abarca catheter with clear urine His pro- Calcitonin is still high but trending down 3.0 down to 1.9 No fever this morning WBC slightly less at 16.3 Patient currently off antibiotic He is getting steroids IV Solu-Medrol which might contribute to his leukocytosis. Also he is on IV Keppra by neurologist 12/14 Patient remains confused in the ICU calm, he had a good night per family member and staff. Tracheostomy in place Patient has occasional coughing spells, patient also developed some partial wound dehiscence in his abdomen, surgery team are aware and are going to evaluate the patient Patient also has positive blood culture from 12/13: Gram-positive cocci in clusters. Patient received one-time dose of IV vancomycin. Patient also had fever 2 days ago, leukocytosis and total elevated pro- Calcitonin. Therefore we are going to consult infectious disease team. As his antibiotic Zosyn was stopped few days ago. Currently patient KVO He has good urine output December 16: ICU. Trach. Congested. Requiring suctioning. No hemodialysis today. Getting G-tube feeding at 50 cc an hour. FiO2 30 and a PEEP of 5. On IV Precedex. Eyes open. Does follow commands. Weakness in the limbs. Spoke to at the bedside. Sputum positive for Klebsiella oxytoca and Pseudomonas aeruginosa. December 17: ICU. On trach. Currently cough with increased secretions requiring suctioning. Adding scopolamine patch. Very much clear secretion. CT scan is showing right upper lobe lung abscess. G-tube feeding at 50 cc an hour. Hemodialysis today. RAYA drain putting out about 140 cc a shift. Serous. Has been midline incision wound dehiscence. Wound VAC was placed on it. Stage II ulcer. Patient is on Precedex drip 0.15 mics. Urine output is good about 6200 cc an hour. Spoke to the at the bedside. Patient currently not stable for transfer to LTAC. No limb movements. PT OT on the case. otherwise awake does follow simple commands by face December 18: ICU. Patient seen this afternoon. Because of pain getting IV Dilaudid. No nasal cannula on room air. Does move about his head. Telemetry shows sinus rhythm. FiO2 30 and a PEEP of 5. Patient started on scopolamine patch yesterday has decreased secretions today. Good urine output. Tube feeding at 60 cc an hour. Wound VAC on incisional would be high since in place. RAYA drain continues to make output. No hemodialysis today December 19: ICU. Patient was seen earlier today. FiO2 30 and a PEEP of 5. Sinus rhythm. Awake. Does follow with eyes. Tube feeding got obstructed tube feedings held for now. Increasing oozing from the incision drainage site. at the bedside. Wound VAC remains in place. Good urine output. Dialysis held today. December 20: ICU. Per nephrology no dialysis today. 1 L fluid bolus given. J- tube was replaced over the wire by Dr. Ewing from surgery. On Precedex 0.6 mcg. FiO2 30 and a PEEP of 5 on the vent. RAYA drain putting out of around 100 cc per shift. at the bedside. Drainage through the abdominal incision wound. CT scan abdomen showed tube placement in the small bowel. Stable large right lower quadrant mass with a fluid level. December 21: ICU. No dialysis today. Patient started on trickle feeding through the J-tube yesterday. He started leaking around the J-tube site. Tube feeding was held. Dressings were placed. Wound VAC remains on the incision. Still having output through the RAYA drain. Patient remains on Precedex 0.4 mcg. FiO2 30 and a PEEP of 5. Sinus rhythm. at the bedside. December 22: ICU. Patient was seen this morning today by me. No dialysis today. Patient's and daughter at the bedside. FiO2 30 and a PEEP of 5. Sinus rhythm. Still having significant secretions through the tracheostomy tube. On Precedex 0.4 mcg. Getting D5W IV fluids. Tube feeding remains to be on hold since yesterday. Still output of RAYA drain. Awaiting input from surgery. Discussed with the and daughter. December 23: ICU. Saw the patient this afternoon. Because of good output of urine dialysis has been discontinued. Telemetry shows sinus rhythm. FiO2 30 and a PEEP of 5. RAYA output has been around 8200 cc an hour. Good urine output. Patient does have very slight movement of the limbs. Wound VAC is putting out about 20 cc per shift. Yesterday when trickle feeding was started patient's J- tube drainage also started leaking around the insertion site. Tube feeding was held. Patient remains on IV Zosyn and Precedex at 0.3 mcg. I had a very lengthy discussion with patient's daughter and at the bedside overall guarded prognosis. Later surgery spoke to the family, and then the nurse called me that family was wanting transferred to [facility]. I spoke to Dr. Irby. They felt they could not offer anything more at this point. I did call the [facility] transfer steam shovel runner. Gave them the reason for transfer. Later in the ICU nurse informed me through [employer] that [facility] had declined the transfer. Total time spent today about 50 minutes with over 30 minutes of discussion. December 24: ICU. Patient is doing not too well. Sinus rhythm. Drips include norepinephrine and IV propofol. Surgery did put 2 stitches around the J-tube insertion site. Started on TPN today. FiO2 30 PEEP of 5. Patient became hypothermic put on a Manjit hugger. Also hypoglycemic. Decreased urine output. IV fluids increased. Patient's son was at the bedside. I did speak to patient's eldest daughter outside in the waiting room. Did tell the patient doing very poorly. I did try to call the on the phone number she has gone home. Started an IV antifungal today. December 26, 2023 73-year-old white male with history of chronic abdominal pain for the last 8 months has been treated with Protonix 40 mg daily for the last 3 months with no improvement. Patient had a 22 pound weight loss in the last [address] of the abdomen and pelvis 3 weeks ago showed thickening of the antral wall with pathological adenopathy posterior to the stomach suspicious of neoplasm. Today the patient underwent elective upper endoscopy to evaluate further, patient received IV sedation by anesthesia endoscope was inserted into the mouth, esophagus was intubated without any difficulty there was evidence of large amount of liquid and solid food noted in the stomach suggestive of gastric outlet obstruction. Scope could not be advanced through the pylorus, however in the prepyloric area there was a large superficial ulceration identified with multiple biopsies were done from this area. The body cardia and fundus could not adequately visualize because of large amount of retained food in the stomach. Scope was withdrawn back to the stomach and upon careful examination the mucosa of the antrum body and cardia as well as the fundus appeared normal. Procedure was being performed and biopsies were done patient threw up and subsequently became hypoxic there was clearly evidence of witnessed aspiration anesthesia intubated the patient, procedure was terminated, and the patient was transferred to the ICU, this consult was initiated. Patient is now on assist- control rate of 20 tidal volume 500 FiO2 70% PEEP of 10 ABG is pending, earlier ABG showed profound hypoxia patient is on propofol at 50 mcg/kg/min, next ABG is pending. Chest x-ray showed chronic changes without evidence of acute pulmonary disease. 12/27/2023 Patient is seen and evaluated with family at bedside; remains in the ICU intubated and mechanically ventilated. - ABG showed a pO2 of 99 pCO2 31 pH of 7.44. -- Remains on Eraxis daptomycin and Zosyn patient is intermittently requiring Dilaudid, Ativan does not seem to help his agitation and restlessness. -- Continues to have leakage around the jejunostomy tube, and patient is undergoing the J-tube exchange today. Family is at bedside, seems to be quite anxious about his overall condition, and I explained to the that we are doing the best we can considering his critical illness situation and critical illness polyneuropathy. Patient is profoundly weak, and weaning the patient from mechanical ventilation is almost impossible. At least not at this point yet WBC count is 10.9 hemoglobin is 8.1 basic metabolic profile is normal BUN is 46 creatinine 1.90 patient has been off hemodialysis since the . Chest x- ray continues to show stable findings with right upper lobe opacity and right lower lobe opacity and possibly a small right-sided pleural effusion ----Continue ventilatory support, now on IMV mode rate of 16 with pressure support of 14 Continue Precedex and use Dilaudid 0.5 mg every 2-3 hours as needed. Nutritional support patient is now on TPN, Possible J-tube changed today for J- tube malfunction Continue antibiotics including daptomycin and Zosyn, Eraxis was added by infectious disease 12/28/2023 the patient is seen and evaluated in room at bedside; continues to be afebrile, the patient is on the ventilator through the trach FiO2 is currently stable at 30% no significant pleural effusion clinically patient on requiring any pressor support still having drainage around his jejunostomy tube patient dialysis catheter has been discontinued. Patient white count normalized to 7.6, creatinine is 1.51 patient with pneumonia with a sputum showing Citrobacter and Pseudomonas aeruginosa, the patient sputum repeat is still growing Citrobacter and Pseudomonas sensitive to the Pseudomonas is pending continue with Zosyn -patient did have a positive blood culture with staph epi that was oxacillin resistant as the patient did have a PICC line and the dialysis catheter he is on daptomycin repeat blood culture currently growing oxacillin sensitive staph epi, the patient dialysis catheter has been discontinued Has been sent for the culture -patient also have significant excoriation around his jejunostomy tube site which is still leaking Eraxis was added which will be continued as the patient fever pattern has improved and the patient white count has normalized once again discussed with the nursing staff to apply Triad cream which was discussed yesterday but not applied and monitor clinical course closely 12/29/2023 Patient is seen and evaluated with family members at bedside; remains intubated and mechanically ventilated -- ABG showed a pO2 of 105 pCO2 31 pH of 7.45. Remains on Precedex; multiple antibiotics and antifungal including Eraxis daptomycin and Zosyn. -- chest x-ray is showing improvement in his right upper lobe airspace disease/pulmonary abscess. Right lower lobe seems about the same with chronic opacity and possibly some small right-sided pleural effusion. --Family is at bedside, patient is arousable but does not follow any instructions. Gets extremely restless and agitated easily hence patient is receiving Dilaudid which seems to be working much better for this patient than benzodiazepines --possibly transfer the patient to a select care specialty. 12/30/2023 Evaluated in follow-up in the intensive care unit. He remains on the mechanical ventilator. Status post tracheostomy. There has been a decrease in the amount of leakage around the J-tube site he continues on a gravity flow. TPN is infusing tube feedings remain on hold at this time. No bowel movement reported for the last 5 days. X-ray today reveals extensive pleural parenchymal opacities throughout the right with at least a moderate pleural effusion. Mild patchy densities left mid and lower lung are also similar. Blood work reveals a white blood cell count 11.5, hemoglobin 8.1, platelet count of 78, sodium 142, potassium 4.2, BUN of 42, creatinine of 1.22, Phos of 2.3, magnesium 1.9. Patient continues on IV anidulafungin IV Zerbaxa IV daptomycin. Patient is currently sedated with propofol and also Precedex which is currently on hold at this time. December 31, 2023: ICU. Patient continues to do poorly. On propofol 35 mics. Also getting IV Dilaudid and IV Ativan.. Telemetry shows sinus rhythm. J-tube feeding has been discontinued. Significant output through the Abarca bag and around the G-tube site. Patient also putting out through the RAYA drain on the right side. Getting TPN and lipids. Patient is antimicrobial include iv aniedulefungin, IV ceftolozane/tazobactam, IV daptomycin Advance care planning [October 31, 2023] I met with patient's at the bedside. Went through in detail with patient is overall very poor clinical status. Chances of any meaningful recovery next to minimal. I also did mention that patient in my opinion was not stable to go to chronic ventilator setting. I suggested comfort care/hospice. I did not feel and why all honesty that patient is benefiting any further from the treatment we are giving him in fact causing probably more suffering. I also spoke to patient's daughter outside in the waiting room. Total time spent about 50 minutes with over 30 minutes of discussion. Later I called Dr. Luther JIMENEZ the plasterer rough after he received a text that family was expressing that some physician expressed he was doing better and giving hope. I spoke to nurse Lemos in the evening and she and Dr. JIMENEZ did go and talk to patient's family at the bedside later. January 01, 2024: ICU. FiO2 30 and a PEEP of 5. Continues to have increased drainage at the G-tube site. Wound VAC in place over the incision. RAYA drain continues to put out excretions. Good urine output. Drips include IV propofol at 20 mics, also getting IV Ativan and Dilaudid. Patient also keeping getting TPN lipids. Spoke to the patient's at the bedside. No further questions. I did speak to Dr. Irby from general surgery. Hence it is both our impression again that changing the tube will not make any difference to the bigger picture. And probably futile. Dr. Irby will be speaking to the family today. David from social security assessor did ask about of family meeting. I did reiterate that I spoken at length to the a few times and also the daughter. Dr. Jimenez also spoke to the and Dr. Irby will be speaking with the today. Prognosis remains to be very poor. I did tell the in my opinion probably the patient is not r a candidate for long-term facility. Will plasterer rough Dr. Jimenez determine if the patient is a candidate for long-term chronic ventilator facility. January 02, 2024: ICU. FiO2 30 PEEP of 5. Telemetry sinus rhythm. Drips include propofol at 20 mics. Patient getting TPN lipids. Receiving 1 unit of packed red blood cell. Patient was having a breakdown around the tracheostomy stoma site. With a cuff leak. G-tube site is continues to have increasing output. Wound VAC in place. RAYA drains also having increasing output. Patient sister and daughter from [place] from out of town. Earlier they spoke at length with Dr. alford from general surgery. Prognosis remains poor. January 03, 2024: ICU. FiO2 30 PEEP of 5. On propofol. 50 mics. Getting TPN lipids. Sinus rhythm. Wound VAC in place. Drainage around the j-tube site. RAYA drain continues to drain. Patient somewhat sedated. at the bedside. Later social security assessor David inform me that the surgical team Dr. Irby has suggested possible you have [facility], to which family is trying to obtain transferred to. Per Dr. Jimenez note patient has been decline by long-term care twice. Prognosis remains poor. at the bedside. Had no questions. Brother Nathan is present. January 04, 2024: ICU. FiO2 30 PEEP of 5. Propofol was held this morning. Getting TPN lipids. Sinus rhythm. Wound VAC remains in place. Continues to have drainage around the J-tube. RAYA drain continues to have output. at the bedside. She had no questions. Antibiotics in place. January 05, 2024: ICU. FiO2 30 PEEP of 5. Audibly sounding congested. Getting TPN lipids. Sinus rhythm. Wound VAC in place. Drainage around J-tube site. RAYA output continues. No family at bedside. Getting antibiotics. Lethargic January 06, 2024: ICU. FiO2 30 PEEP of 5. Patient is been off propofol since yesterday. Does move his head about. Try to open his eyes sometimes. Sinus rhythm. Blood pressure is running high yesterday. Started on Cleviprex. Hydralazine is being added. Continue to get TPN lipids. J-tube site remains excoriated. Wound VAC in place. RAYA output about 40 to 50 cc is a 12-hour shift. Patient elder daughter at the bedside. Eraxis was discontinued on January 02. Daptomycin is being discontinued by ID. Continue ceftolo'szone. CT abdomen pelvis done today: 3.1 cm organized fluid collection within the rectovesicular space concerning for abscess. No change in right upper lung 4.9 cm fluid collection with a fluid level. For possible pulmonary abscess. Moderate size right lung base multiloculated hydropneumothorax possibly abscess. Additional areas of air bronchograms. January 07, 2024: ICU. FiO2 30 PEEP of 5. Patient was taken down for pigtail drainage of the right lung abscess. About 200 cc of pus was obtained. Nurse informed me when they told him about for the procedure a lot of pus gushed out from the tracheostomy site. Dr. Love at the bedside did a bronchoscopy. Some pus was aspirated. No obvious fistula was noted. Patient is being back on Cleviprex drip. TPN lipids. January 08, 2024: ICU. Patient was having severe bouts of coughing. Unable to maintain ventilation. Patient was put on Nimbex drip and propofol drip. TPN lipids continue. Has a right chest wall pigtail catheter 90 cc output in 12- hour shift. Drainage from around the J-tube site. RAYA drain continues Ahmet to have an output. Abdominal wound is high since with the wound VAC in place. Patient sedated. January 09, 2024: ICU. Patient is off propofol and Cleviprex. Does open eyes. RAYA drain. About 40 cc last 24 hours. J-tube site continues to have increased output. Requiring dressing change every so often. Wound VAC in place. Patient getting Dilaudid and Ativan. Telemetry shows sinus rhythm. 40 cc out of the pigtail drainage. Patient started on ciprofloxacin and tobramycin. Remains on TPN and lipids. Patient's eldest daughter and at the bedside. No new questions. January 10, 2024: ICU. Overnight patient had become asynchronous. Had to be put on Precedex drip. Hemoglobin dropped down to 6.6. Monitor blood ordered. RAYA output about 100 cc last 24 hours. Wound VAC remains in place. TPN lipid continues. Patient also has a leak in the right pigtail catheter. Sinus rhythm. Continues to have increased secretion at the G-tube site. Ventilator FiO2 30 and a PEEP of 5. at the bedside. Had no further questions. January 11, 2024: ICU. Patient remains on IV Precedex. TPN.'s RAYA output over 30 cc last 24 hours. Wound VAC remains in place. Sinus rhythm. FiO2 30 PEEP of 5. Pigtail with very little output. Spoke to Dr. Love who only spoke to the patient's at length. Gnosis poor. When I walked in patient's 2 daughters and the present. is very tearful crying hugging the patient. The daughter had no further questions January 12, 2024 Ahmet: ICU. Continues on IV Precedex. Getting TPN lipids. Wound VAC in place. Sensitive. FiO2 30 and a PEEP of 5. Patient's at the bedside. Had no questions. Active Medications Acetaminophen (Acetaminophen Suppository 650 Mg Supp) 650 mg RECTAL Q6HR PRN PRN Reason: Fever Albuterol/Ipratropium (Ipratropium-Albuterol 3 Ml Neb) 3 ml INHALATION RT-QID [facility] Last Admin: 01/12/24 16:20 Dose: 3 ml Albuterol/Ipratropium (Ipratropium-Albuterol 3 Ml Neb) 3 ml INHALATION RT-Q2H PRN PRN Reason: Shortness Of Breath Or Wheezing Last Admin: 01/08/24 04:01 Dose: 3 ml Bisacodyl (Bisacodyl 10 Mg Supp) 10 mg RECTAL DAILY [facility] Last Admin: 01/12/24 09:16 Dose: 10 mg Dextrose/Water (Dextrose 50% Syringe 50 Ml) 25 ml IVP PER PROTOCOL PRN; Protocol PRN Reason: Hypoglycemia Last Admin: 01/03/24 06:18 Dose: 25 ml Dextrose/Water (Dextrose 50% Syringe 50 Ml) 50 ml IVP PER PROTOCOL PRN; Protocol PRN Reason: Hypoglycemia Last Admin: 12/25/23 18:03 Dose: 50 ml Hydralazine HCl (Hydralazine Hcl 20 Mg/Ml 1 Ml Vial) 10 mg IVP Q6HR PRN PRN Reason: SBP >140 Last Admin: 01/07/24 23:28 Dose: 10 mg Hydromorphone HCl (Hydromorphone 2 Mg/Ml 1 Ml Syringe) 1.5 mg IVP Q4H [facility] Last Admin: 01/12/24 16:47 Dose: 1.5 mg Fat Emulsion Intravenous 250 (ml/ IV Solution) 250 mls @ 21 mls/hr IV TuThSa@0900 [facility] Last Admin: 01/11/24 09:02 Dose: 21 mls/hr Ciprofloxacin/Dextrose 400 mg/ (IV Solution) 200 mls @ 200 mls/hr IVPB Q8H [facility] Last Admin: 01/12/24 16:09 Dose: 200 mls/hr Dexmedetomidine HCl 400 mcg/ (IV Solution) 100 mls @ 5.2 mls/hr IV .[id number] [facility]; Protocol Last Admin: 01/12/24 12:42 Dose: 0.7 mcg/kg/hr, 18.2 mls/hr Tobramycin Sulfate 600 mg/ (Sodium Chloride) 115 mls @ 115 mls/hr IVPB Q48H [facility] Last Admin: 01/11/24 14:37 Dose: 115 mls/hr Parenteral Vitamin Supplement 10 ml/ Zinc/Copper/Manganese/Selenium 1 ml/ Sodium Acetate 48 meq/ Magnesium Sulfate 2 gm / Calcium Gluconate 1 gm/Potassium Phosphate 24 mmol/Potassium Acetate 20 meq/Amino Acids/Dextrose 2,067 mls @ 90 mls/hr IV .[id number] [facility] Stop: 01/12/24 22:59 Last Admin: 01/12/24 00:13 Dose: 90 mls/hr Parenteral Vitamin Supplement 10 ml/ Zinc/Copper/Manganese/Selenium 1 ml/ Sodium Acetate 54 meq/ Magnesium Sulfate 2 gm / Calcium Gluconate 1 gm/Potassium Phosphate 24 mmol/Potassium Acetate 20 meq/Amino Acids/Dextrose 2,070 mls @ 90 mls/hr IV .Q23H [facility] Fluconazole/Sodium Chloride (200 mg/ IV Solution) 100 mls @ 100 mls/hr IVPB DAILY [facility]; Protocol Last Admin: 01/12/24 15:05 Dose: 100 mls/hr Insulin Aspart (Insulin Aspart (Novolog) 100 Unit/Ml Vial) 0 unit SQ 0000,0600,1200,1800 [facility]; Protocol Last Admin: 01/12/24 11:41 Dose: 2 unit Levetiracetam (Levetiracetam Iv 500 Mg/5 Ml Vial) 250 mg IVP Q24HR [facility] Last Admin: 01/12/24 09:16 Dose: 250 mg Lorazepam (Lorazepam 2 Mg/Ml Inj) 1 mg IV Q6HR PRN PRN Reason: Agitation Last Admin: 01/11/24 15:21 Dose: 1 mg Miscellaneous Information (Potassium Replacement Protocol 1 Each Misc) 1 each MISCELLANE DAILY PRN; Protocol PRN Reason: Per Protocol Miscellaneous Information (Magnesium Replacement Protocol 1 Each Misc) 1 each MISCELLANE DAILY PRN; Protocol PRN Reason: Per Protocol Miscellaneous Information (Phosphorus Replacement Protoco 1 Each Misc) 1 each MISCELLANE DAILY PRN; Protocol PRN Reason: Per Protocol Multi-Ingred Cream/Lotion/Oil/Oint (Hydrophilic Cream 180 Gm Tube) 1 applic TOPICAL BID [facility]; Protocol Last Admin: 01/12/24 09:18 Dose: 1 applic Multi-Ingredient Ointment (Zinc Oxide 20% Oint 28.4 Gm Tube) 1 applic TOPICAL BID PRN; Protocol PRN Reason: Skin Irritation Naloxone HCl (Naloxone 0.4 Mg/Ml 1 Ml Vial) 0.2 mg IV Q2M PRN PRN Reason: Opioid Reversal Pantoprazole Sodium (Pantoprazole 40 Mg/10 Ml Vial) 40 mg IVP BID [facility] Last Admin: 01/12/24 09:16 Dose: 40 mg Petrolatum (Zinc Oxide Paste (Z-Guard) 1 Applic) 1 applic TOPICAL BID [facility]; Protocol Last Admin: 01/12/24 09:18 Dose: 1 applic Past medical history to include: GERD Social history: . No smoking. Physical examination: VITAL SIGNS: 97.2, 82, 33, 116/78, 98% on the vent GENERAL: Sedated getting TPN and lipids EYES: Pupils equal. Conjunctiva edouard l. HEENT: External appearance of nose and ears normal, tracheostomy-. NECK: JVD unable to assess; masses not palpable. HEART: First and second heart sounds are normal; edema, present LUNGS: Respiratory rate increased, decreased breath sounds right chest wall pigtail catheter ABDOMEN: Soft, some tenderness. Liver spleen not palpable, no masses palpable..jejunostomy tube-dressing in place, . RAYA drain. Incision with stitches with - wound VAC PSYCH: Unable to assess NEURO: Sedated INVESTIGATIONS, reviewed in the clinical context: January 11: Sodium 132 potassium 3.9 creatinine 0.86 January 09: White count 15.4 hemoglobin 6.7 platelets 188 January 08: White count 15.3 hemoglobin 7.3 platelets 176 potassium 3.6 creatinine 0.89 January 06: White count 11.4 hemoglobin 7.4 potassium 3.[address] abdomen pelvis [January 05]: 3.1 cm organized fluid collection within the rectovesicular space concerning for abscess. No change in right upper lung 4.9 cm fluid collection with a fluid level. For possible pulmonary abscess. Moderate size right lung base multiloculated hydropneumothorax possibly abscess. Additional areas of air bronchograms. January 05: White count 10.6 hemoglobin 7.6 platelets 111 sodium 137 potassium 3.5 BUN 44 creatinine 0.95 January 03: White count 13.4 hemoglobin 8.1 platelets 95 potassium 5.2 creatinine 1.1 albumin 1.8 Sputum culture [December 24] Citrobacter freundii, Pseudomonas aeruginosa Blood culture [December 24] Staphylococcus pettenkoferi December 24: White count 1.5 hemoglobin 8.2 platelets 106 potassium 3.8 BUN [address] chest abdomen without contrast [December 16] right upper lung cavitary lesion with air-fluid level in the posterior aspect and a larger cavitary lesion possibly within the lung parenchyma itself. Extending down towards the diaphragm additional airspace opacities in the left lung base. December 09: White count 26.1 hemoglobin 8.6 platelets 154 potassium 4.1 BUN 86 creatinine 3.31. Hemoglobin this morning was 6.6 prior to transfusion EEG-evidence of generalized cerebral dysfunction and sporadic intermittent higher amplitude sharply contoured waves mainly bifrontal. Showing cortical irritability. 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 Serosal fibrous adhesions. Viable margins. Sputum culture: [November 25]: Citrobacter freundii. Pseudomonas aeruginosa November 20: White count 14.4 hemoglobin 8.8 platelets 229 potassium 4.1 BUN [address] scan abdomen [November 19] possible small bowel obstruction Stool: C. difficile negative November 15: WBC 13 hemoglobin 7.7 platelets 248 potassium 4.3 creatinine 0.87 2D echo: EF 55 to 60%. Kidneys bladder: Unremarkable November 13: White count 12 hemoglobin 6.9 platelets 276 potassium 4.4 creatinine 1.21 magnesium 1.8 iron 6 TIBC 365% saturation 1.64 transferrin 261 ferritin 34.6 B12 569 folate 4.4 November 11: Creatinine 0.86 EGD: Large amount of retained solid liquid food noted in the stomach. Large superficial gastric antral ulceration involving most of the antrum extending into the pylorus causing pyloric stenosis. Biopsies were obtained. Chest x-ray film personally reviewed by me-scattered infiltrates Assessment plan: -Aspiration and gram-negative bacterial pneumonia a bilateral initially from retained gastric contents mostly food and liquids, causing acute hypoxic respiratory failure: On presentation: Subsequent bacterial pneumonia sputum culture November 25: Citrobacter freundii, Pseudomonas aeruginosa. December 13: Klebsiella oxytoca, Pseudomonas aeruginosa IV meropenem-, IV Zosyn.IV ceftolozane/tazobactam, IV daptomycin-all discontinued Currently getting IV ciprofloxacin and tobramycin -Patient became asynchronous with the ventilator. On Precedex drip -Breakdown of tracheostomy stoma site. Dressing in place Being followed by plasterer rough -Sepsis with septicemia from above Patient received multiple antibiotics -Right l lung abscess, pigtail catheter placed January 07, 2024. Initially about 200 cc of pus obtained. During the procedure large amount of pus poured out of the tracheostomy site when patient was rolled on the left side. Status post bronchoscopy with some lavage on 01/07/2024 - lung abscess larger 1 on the right side-patient cultures are growing Pseudomonas and Klebsiella oxytoca: Slow to respond , Received other antibiotics. Currently on Levaquin and tobramycin -Acute pulmonary edema and fluid overload from hypoalbuminemic state and fluids from IV.:: Has been getting Lasix and dialysis: Both held -Altered mentation. Possibly encephalopathy. Could be delirium.: Not improving CT brain [December 06] nothing acute Neurology following EEG-evidence of generalized cerebral dysfunction and sporadic intermittent higher amplitude sharply contoured waves mainly bifrontal. Showing cortical irritability. Keppra was started on December 07 -Critical care poly- Pedro neuropathy: Slow to respond PT OT -Gallstones, asymptomatic -Small l bowel perforation at site of jejunostomy tube tip with balloon..: Portion of small bowel resected. On November 24. New J-tube was placed.- drainage to gravity:-Now discontinued December 19: J-tube blocked. J-tube replaced on December 20 over wire December 21: Leaking around the J-tube site. Feeding held December 23: J feeding was started yesterday evening but again started leaking increasingly around the J-tube site-feeding held again December 24: J-tube feeding has been held. Patient is currently having increased drainage from the J-tube site -Acute kidney injury. Possible ATN from hypotensive shock: Resolved Renal ultrasound unremarkable. Started on renal replacement therapy on November 28. Last hemodialysis on December 17. Being followed by an nephrology. Good urine output. -Nutrition Jejunostomy tube placed November [address] Ewing Received TPN-this was discontinued. TPN lipids restarted on December 24 -Lung abscess, not improving Antibiotics to continue. Pulmonary and ID following -Midline abdominal incision wound dehiscence Wound VAC placed -Acute recurrent atrial fibrillation-converted to sinus rhythm Received IV amiodarone. Cardiology following Lopressor -Acute hypoxic respiratory failure from aspiration pneumonia, status post ventilator assisted: Reintubated November 25. FiO2 35 PEEP of 5 Tracheostomy tube-by Dr. Zepeda on December 09 -Septic shock, recovered -Hypertension, recurrent Had received Cleviprex. Hydralazine added -Intermittent hypotension: Corrected Intermittent use of Levophed. 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 Also anemia of blood draw. Iron deficiency anemia Received total of 6 units of blood IV iron. -Severe thrombocytopenia. Would consider coagulation disorder secondary to infection., In the setting of underlying lymphoma.: Fluctuating with infection Hematology following. -Acute blood loss anemia, -Sacral stage II decub ulcer Dressing in place -Hypokalemia, multiple causes -Hypoglycemia -GERD PPI -Acute diarrhea secondary to tube feeding.: Resolved C. difficile ruled out. -Large superficial gastric antral ulceration involving the gastric antrum extending into the pylorus with gastric outlet obstruction. 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 -Full code On Precedex. IV ciprofloxacin and IV tobramycin. TPN lipids. at the bedside had no questions. Prognosis poor. Past Medical History Past Medical History: GERD/Reflux History of Any Multi-Drug Resistant Organisms: None Reported Past Surgical History: Heart Catheterization Additional Past Surgical History / Comment(s): colonsocopy,spinal injection, Past Anesthesia/Blood Transfusion Reactions: No Reported Reaction Past Psychological History: No Psychological Hx Reported Smoking Status: Never smoker Past Alcohol Use History: None Reported Past Drug Use History: None Reported
[2024-01-12 17:54] LABS: Glucose,Whole Blood 178 mg/dL (70-110)
--- NOTE | 2024-01-12 20:40 | P.PN ---
Subjective she seen and evaluated bedside. No new changes. Objective - Vital Signs Vital signs: Vital Signs Temp 97.2 F L 01/12/24 12:00 Pulse 80 01/12/24 20:05 Resp 23 01/12/24 19:00 BP 123/84 01/12/24 19:00 Pulse Ox 97 01/12/24 19:00 FiO2 30 01/12/24 19:43 Intake & Output 01/12/24 01/12/24 01/13/24 06:59 18:59 06:59 Intake Total 3787.797 1622.706 95 Output Total 2024 1700 150 Balance 1762.797 -77.294 -55 Weight 104.2 kg Intake: IV 450 260 5 0.9 Normal Saline @ KVO 50 60 5 Ciprofloxacin/Dextrose 400 Pmx 400 mg In Dextrose/ Water 1 200ml.bag @ 200 mls/hr IVPB Q8H [facility] Rx#: [id number] Potassium Chloride 10 meq 200 In Water For Injection 1 100ml.bag @ 100 mls/hr IVPB Q1H [facility] Rx#: [id number] Intake, IV Titration 2257.797 282.706 Amount Dexmedetomidine/0.9% NaCl 190.797 282.706 (Pmx) 400 mcg In Empty Bag 1 bag @ 0.2 MCG/KG/HR 5.2 mls/hr IV .[id number] [facility] Rx#:[id number] Mvi, Adult No.4 with Vit 2067 K 10 ml Trace (Conc-1Ml/ Dose) 1 ml Sodium Acetate 48 meq Magnesium Sulfate gm 2 gm Calcium Gluconate 1 gm Potassium Phosphate 24 mmol Potassium Acetate 20 meq In Amino Acids 5 %/ Dextrose 20 % 2,000 ml @ 90 mls/hr IV .[id number] [facility] Rx#:[id number] TPN/PPN 1080 1080 90 TPN 1080 1080 90 Output: Chest Tube Drainage 40 50 Chest Tube Right 40 50 Drainage 60 Right Abdomen 60 Urine 1925 1650 150 Other: Voiding Method Indwelling Catheter Indwelling Catheter ABP, PAP, CO, CI - Last Documented Arterial Blood Pressure 173/76 - Exam Physical exam: HEENT: Normocephalic, sclerae nonicteric Chest: Clear to auscultation Heart: Regular rate and rhythm Abdomen: [Nontender, nondistended, Hemovac in place, J-tube still leaking Extremities: No edema Neuro: Alert and oriented - Labs CBC & Chem 7: 01/11/24 02:45 01/12/24 06:59 Labs: Abnormal Lab Results - Last 24 Hours (Table) 01/12/24 01/12/24 01/12/24 Range/Units 00:06 06:07 06:59 Sodium 132 L (137-145) mmol/L BUN 42 H (9-20) mg/dL Glucose 184 H (74-99) mg/dL POC Glucose (mg/dL) 141 H 165 H (70-110) mg/dL Calcium 7.0 L (8.4-10.2) mg/dL Alkaline Phosphatase 244 H (38-126) U/L Total Protein 5.8 L (6.3-8.2) g/dL Albumin 1.9 L (3.5-5.0) g/dL 01/12/24 01/12/24 Range/Units 11:33 17:53 Sodium (137-145) mmol/L BUN (9-20) mg/dL Glucose (74-99) mg/dL POC Glucose (mg/dL) 152 H 178 H (70-110) mg/dL Calcium (8.4-10.2) mg/dL Alkaline Phosphatase (38-126) U/L Total Protein (6.3-8.2) g/dL Albumin (3.5-5.0) g/dL Microbiology - Last 24 Hours (Table) 01/07/24 12:15 Gram Stain - Final Pleural Fluid Body Fluid Culture - Final Pseudomonas aeruginosa Alejandra albicans 01/07/24 12:15 Anaerobic Culture - Final Pleural Fluid Assessment and Plan Assessment: 1. 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 Status post J-tube placement and revision for small bowel obstruction 2. Abdominal wound dehiscence status post wound VAC placement 3. Status post tracheostomy PLAN: -At this time no plan to exchange J-tube, this was discussed further with the family. Concern is for dilating the fistula tract and having excessive output. Continue to monitor. -There is concern for increased output from around J-tube site with introduction of tube feeding. This was discussed in depth with family. Family would like to continue with TPN and lipids at this time. -Continue to hold tube feeds -Wound VAC scheduled to be changed Saturday/Saturday/Saturday -Continue TPN for nutrition support -Continue zinc barrier cream around J-tube plan for ostomy appliance around J-tube when appropriate, ICU attending just spoke with the family and the patient's family is very tearful I will contact later. Time with Patient: Less than 30
[2024-01-12] MEDS: [UNRECOGNIZED DRUG - REMARK] IV SCH (23:21)
[2024-01-13 00:09] LABS: Glucose,Whole Blood 186 mg/dL (70-110)
[2024-01-13 05:47] LABS: Glucose,Whole Blood 210 mg/dL (70-110)
[2024-01-13 06:04] LABS: ABG Base Excess 0.8 mmol/L; ABG HCO3 25 mmol/L (21-25); ABG Oxygen Saturation 97.9 % (94-97); ABG PCO2 35 mmHg (35-45); ABG PH 7.45 (7.35-7.45); ABG PO2 90 mmHg (83-108); ABG TCO2 26 mmol/L (19-24); Allen Test Performed? Yes
[2024-01-13 06:07] LABS: Anisocytosis Slight; Basophils % (A) 0 %; Eosinophils # (A) 0.1 k/uL (0-0.7); Eosinophils % (A) 1 %; HCT 24.8 % (39.0-53.0); HGB 8.1 gm/dL (13.0-17.5); Hypochromasia Slight; Lymphocytes # (A) 0.9 k/uL (1.0-4.8); Lymphocytes % (A) 15 %; MCH 30.4 pg (25.0-35.0); MCHC 32.7 g/dL (31.0-37.0); MCV 92.9 fL (80.0-100.0); Monocytes # (A) 0.3 k/uL (0-1.0); Monocytes % (A) 5 %; Neutrophils # (A) 4.8 k/uL (1.3-7.7); Neutrophils % (A) 78 %; Platelet Count 278 k/uL (150-450); RBC 2.67 m/uL (4.30-5.90); WBC 6.2 k/uL (3.8-10.6)
[2024-01-13 06:23] LABS: ALT 26 U/L (4-49); AST 28 U/L (17-59); African American GFR (CKD) >90 (>60 ml/min/1.73 sqM); Albumin 1.9 g/dL (3.5-5.0); Alkaline Phosphatase 235 U/L (38-126); Anion Gap 4 mmol/L; Blood Urea Nitrogen 41 mg/dL (9-20); Carbon Dioxide 20 mmol/L (22-30); Chloride 106 mmol/L (98-107); Glucose 192 mg/dL (74-99); Magnesium 1.7 mg/dL (1.6-2.3); Non-African American GFR(CKD) 90 (>60 ml/min/1.73 sqM); Phosphorus 4.1 mg/dL (2.5-4.5); Sodium 130 mmol/L (137-145); Total Bilirubin 0.9 mg/dL (0.2-1.3)
[2024-01-13] MEDS: MAGNESIUM SULFATE-D5W PMX 1 GM in DEXTROSE/WATER 1 100ML.BAG IVPB ONE (07:10)
--- NOTE | 2024-01-13 07:24 | XR ---
EXAMINATION TYPE: XR chest 1V portable DATE OF EXAM: 01/13/2024 5:12 AM COMPARISON: 01/12/2024 CLINICAL INDICATION: Male, 73 years old with history of mechanical ventilator/r lung pigtail, TECHNIQUE: XR chest 1V portable view(s) obtained. FINDINGS: The heart size is normal. The pulmonary vasculature is normal. Bibasilar infiltrates are present. There is persistent opacity at the right apex. Tracheostomy tube i s in the midline. PICC line is present with the tip in the superior vena cava region. Right-sided por t has tip within the right atrium. Drainage catheter appears to be present on the right chest. IMPRESSION: 1. Bibasilar infiltrates. Opacity at the right costophrenic angle appears diminished from comparison. 2. Right apical thickening. 3. Lines and catheters discussed above [facility], , 01/13/2024 7:22 AM
--- NOTE | 2024-01-13 11:01 | P.PN ---
Subjective Patient is seen for follow-up for acute kidney injury. patient remains off of dialysis. Urine output 100-125 mL an hour. Serum creatinine 0.8 today. Sodium 130 and CO2 at 20. TPN has been adjusted. Objective - Vital Signs Vital signs: Vital Signs Temp 98.9 F 01/13/24 08:00 Pulse 86 01/13/24 10:00 Resp 27 H 01/13/24 10:00 BP 128/90 01/13/24 10:00 Pulse Ox 94 L 01/13/24 10:00 FiO2 30 01/13/24 10:44 Intake & Output 01/12/24 01/13/24 01/13/24 18:59 06:59 18:59 Intake Total 3928.094 1104.520 390.333 Output Total 1700 2000 525 Balance -77.294 -287.480 -134.667 Weight 104.5 kg Intake: IV 260 450 205 0.9 Normal Saline @ KVO 60 50 5 Ciprofloxacin/Dextrose 400 200 Pmx 400 mg In Dextrose/ Water 1 200ml.bag @ 200 mls/hr IVPB Q8H [facility] Rx#: [id number] Potassium Chloride 10 meq 200 In Water For Injection 1 100ml.bag @ 100 mls/hr IVPB Q1H [facility] Rx#: [id number] Intake, IV Titration 282.706 182.520 95.333 Amount Dexmedetomidine/0.9% NaCl 282.706 182.520 95.333 (Pmx) 400 mcg In Empty Bag 1 bag @ 0.2 MCG/KG/HR 5.2 mls/hr IV .[id number] [facility] Rx#:[id number] TPN/PPN 1080 1080 90 TPN 1080 1080 90 Output: Chest Tube Drainage 50 100 Chest Tube Right 50 100 Drainage 100 Right Abdomen 100 Urine 1650 1800 525 Other: Voiding Method Indwelling Catheter Indwelling Catheter Indwelling Catheter ABP, PAP, CO, CI - Last Documented Arterial Blood Pressure 173/76 - Exam patient is awake and on the vent. FiO2 30% Right chest tube in place Examination of the heart S1 and S2 Examination of the lungs bilateral breath sounds are heard Abdomen is soft, ventral hernia noted along with wound VAC Examination of lower extremities shows edema 1+ bilaterally in upper and lower extremities with scrotal edema. - Labs CBC & Chem 7: 01/13/24 05:54 01/13/24 05:47 Labs: Abnormal Lab Results - Last 24 Hours (Table) 01/12/24 01/12/24 01/13/24 Range/Units 11:33 17:53 00:07 RBC (4.30-5.90) m/uL Hgb (13.0-17.5) gm/dL Hct (39.0-53.0) % RDW (11.5-15.5) % Lymphocytes # (1.0-4.8) k/uL ABG Total CO2 (19-24) mmol/L ABG O2 Saturation (94-97) % Hemoglobin (13.0-17.5) gm/dL Sodium (137-145) mmol/L Carbon Dioxide (22-30) mmol/L BUN (9-20) mg/dL Glucose (74-99) mg/dL POC Glucose (mg/dL) 152 H 178 H 186 H (70-110) mg/dL Calcium (8.4-10.2) mg/dL Alkaline Phosphatase (38-126) U/L Total Protein (6.3-8.2) g/dL Albumin (3.5-5.0) g/dL 01/13/24 01/13/24 01/13/24 Range/Units 04:57 05:46 05:47 RBC (4.30-5.90) m/uL Hgb (13.0-17.5) gm/dL Hct (39.0-53.0) % RDW (11.5-15.5) % Lymphocytes # (1.0-4.8) k/uL ABG Total CO2 26 H (19-24) mmol/L ABG O2 Saturation 97.9 H (94-97) % Hemoglobin 7.8 L (13.0-17.5) gm/dL Sodium 130 L (137-145) mmol/L Carbon Dioxide 20 L (22-30) mmol/L BUN 41 H (9-20) mg/dL Glucose 192 H (74-99) mg/dL POC Glucose (mg/dL) 210 H (70-110) mg/dL Calcium 7.0 L (8.4-10.2) mg/dL Alkaline Phosphatase 235 H (38-126) U/L Total Protein 6.0 L (6.3-8.2) g/dL Albumin 1.9 L (3.5-5.0) g/dL 01/13/24 Range/Units 05:54 RBC 2.67 L (4.30-5.90) m/uL Hgb 8.1 L (13.0-17.5) gm/dL Hct 24.8 L (39.0-53.0) % RDW 16.0 H (11.5-15.5) % Lymphocytes # 0.9 L (1.0-4.8) k/uL ABG Total CO2 (19-24) mmol/L ABG O2 Saturation (94-97) % Hemoglobin (13.0-17.5) gm/dL Sodium (137-145) mmol/L Carbon Dioxide (22-30) mmol/L BUN (9-20) mg/dL Glucose (74-99) mg/dL POC Glucose (mg/dL) (70-110) mg/dL Calcium (8.4-10.2) mg/dL Alkaline Phosphatase (38-126) U/L Total Protein (6.3-8.2) g/dL Albumin (3.5-5.0) g/dL Microbiology - Last 24 Hours (Table) 01/07/24 12:15 Gram Stain - Final Pleural Fluid Body Fluid Culture - Final Pseudomonas aeruginosa Alejandra albicans Assessment and Plan Assessment: 1. Acute kidney injury secondary to ATN secondary to septic shock. Creatinine 0.86 on admission and up to 5.38 dated November 29, 2023. nonoliguric. UA fairly benign. No hydronephrosis noted on imaging. Started hemodialysis on 11/29/2023 for worsening volume status and acute kidney injury. Renal function has improved and dialysis catheter was discontinued on 12/28/2023 2. Perforated small bowel status post exploratory laparotomy with abdominal washout, small bowel resection and J-tube replacement November 25, 2023. 3. A-fib with RVR. s/p amiodarone drip. 4. Recently diagnosed gastric B-cell lymphoma. 5. Septic shock. 6. Hypokalemia status post replacement. 7. Hypophosphatemia, being supplemented in TPN. 9. Hypernatremia, status post D5W and improved. Plan: IV Lasix 1 Increase sodium acetate in TPN Repeat labs in a.m. and continue to adjust TPN as needed. Overall prognosis is guarded
[2024-01-13 11:22] LABS: Glucose,Whole Blood 183 mg/dL (70-110)
[2024-01-13] MEDS: FUROSEMIDE 10 MG/ML 4 ML VIAL IV STA (11:31)
--- NOTE | 2024-01-13 11:57 | P.PN ---
Subjective Progress Note Date: 01/13/24 Principal diagnosis: Acute hypoxic respiratory failure requiring intubation mechanical ventilation secondary to aspiration. This is a 73-year-old white male with history of chronic abdominal pain for the last 8 months has been treated with Protonix 40 mg daily for the last 3 months with no improvement. Patient had a 22 pound weight loss in the last [address] of the abdomen and pelvis 3 weeks ago showed thickening of the antral wall with pathological adenopathy posterior to the stomach suspicious of neoplasm. Today the patient underwent elective upper endoscopy to evaluate further, patient received IV sedation by anesthesia endoscope was inserted into the mouth, esop hagus was intubated without any difficulty there was evidence of large amount of liquid and solid food noted in the stomach suggestive of gastric outlet obstruction. Scope could not be advanced through the pylorus, however in the prepyloric area there was a large superficial ulceration identified with multiple biopsies were done from this area. The body cardia and fundus could not adequately visualize because of large amount of retained food in the stomach. Scope was withdrawn back to the stomach and upon careful examination the mucosa of the antrum body and cardia as well as the fundus appeared normal. Procedure was being performed and biopsies were done patient threw up and subsequently became hypoxic there was clearly evidence of witnessed aspiration anesthesia intubated the patient, procedure was terminated, and the patient was transferred to the ICU, this consult was initiated. Patient is now on assist- control rate of 20 tidal volume 500 FiO2 70% PEEP of 10 ABG is pending, earlier ABG showed profound hypoxia patient is on propofol at 50 mcg/kg/min, next ABG is pending. Chest x-ray showed chronic changes without evidence of acute pulmonary disease. 01/10/2024, the patient is on low-dose Precedex. Currently comfortable, sensitive to mechanical ventilator. Output from the pigtail has dropped and the patient continues to have a positive airleak. The chest x-ray shows bilateral consolidation worse on the right and there is a small right apical pneumothorax. Pigtail catheter is in a good location. Blood gas showed a pH of 7.48 with a pCO2 of 35 and a pO2 of 83. He is on assist-control mode with rate of 20, tidal volume of 600, FiO2 30% with a PEEP of 5. RAYA drain output is serosanguineous. TPN is at 90 cc an hour. Fluid balance is -700 cc. The white cell count is at 15.4, hemoglobin is at 6.7 and the patient was given a unit of packed RBC and a platelet count is 188. Electrolytes show a BUN of 46 with a creatinine of 0.7, sodium of 135, potassium level of 3.3. Antibiotics has been modified to a combination of ciprofloxacin and tobramycin as the patient showed quinolone sensitive Pseudomonas in the sputum and in the drain the abscess from the right lung. 01/11/2024, the patient is being seen for a follow-up. Patient is currently on low-dose Precedex at 0.2 mcg/kg/min. Calm and comfortable, no significant coughing. Remains on the mechanical ventilator./On the same vent setting which includes assist-control of 20, tidal volume of 600, FiO2 30% with a PEEP of 5. Chest x-ray shows a right apical pneumothorax, extensive consolidation of the right lung and some limited consolidation in the left and the catheter is in place with purulent output. There is also possibility through the pigtail catheter. Tracheostomy tube is in good location. Remains on tobramycin and ciprofloxacin. The white cell count of 13.6, hemoglobin 8.4 and platelet count is at 208. Blood gas from today showed a pH of 7.48 with a pCO2 of 33 and pO2 of 93. Sodium is at 134, potassium is at 3.7, BUN is 44 with a creatinine of 0.8. LFTs are normal and the patient has an alkaline phosphatase of 233 as the patient continues to receive TPN for nutritional support. Triglyceride levels at 187. Otherwise, no other significant changes condition. Cardiac rhythm remains sinus. The patient is producing adequate amount of urine output. Extremely debilitated, extremely weak, J-tube is not functional and there is leak around the J-tube. The patient was seen again by general surgery and there is no plan to exchange the J-tube. Concern of some leak around the J-tube and based on that an ostomy appliance will be applied around the J-tube. On 01/12/2024, clinically unchanged, remains on Precedex at 0.7 mcg/kg/h. Remains on TPN for nutritional support. Remains on same ventilator settings with assist-control mode rate of 20, tidal volume of 500, FiO2 30% with a PEEP of 5. No blood gases are available from today. Repeat chest x-ray shows stable findings. Stable right apical pneumothorax. Consolidation involving the right lung and the left base remains unchanged. Sputum sample was positive for Pseudomonas aeruginosa and the patient remains on a combination of ciprofloxacin and tobramycin. The patient has positive air leak in his pigtail catheter and total amount of output overnight and over the past 12 hours has been in the order of 80 cc. Extremely debilitated. Extremely weak. Not coherent although arousable. evaluated today on 01/13/2024, remains in the ICU, patient remains intubated and mechanically ventilated, he is on volume control plus with tidal volume of 500 rate 20 FiO2 30% and PEEP of 5 ABG showed a pO2 of 90 pCO2 35 pH of 7.45. No changes were made in ventilator settings. Patient remains on Precedex at 0.8 mcg/kg/h remains on TPN at 90 cc/h patient remains on multiple antibiotics including Cipro fluconazole and tobramycin patient has resistant Pseudomonas in the sputum. Continues to have an air leak in the right-sided chest tube and he has a pigtail catheter in place. Chest x-ray continues showed significant airspace disease bilaterally. Patient is arousable but does not follow any instructions, he is a bit encephalopathic. Family is at bedside, and I had a long discussion with the family regarding his condition and prognosis.WBC count today 6.2 hemoglobin 8.1. Basic metabolic profile is normal renal profile is normal bicarb is 20. Albumin is 1.9. Patient is receiving Dilaudid intermittently for agitation. And that seems to calm down along with Precedex. Objective - Vital Signs Vital signs: Vital Signs Temp 98.9 F 01/13/24 08:00 Pulse 86 01/13/24 10:00 Resp 27 H 01/13/24 10:00 BP 128/90 01/13/24 10:00 Pulse Ox 94 L 01/13/24 10:00 FiO2 30 01/13/24 10:44 Intake & Output 01/12/24 01/13/24 01/13/24 18:59 06:59 18:59 Intake Total 5582.389 1162.520 390.333 Output Total 1700 2000 525 Balance -77.294 -287.480 -134.667 Weight 104.5 kg 104.5 kg Intake: IV 260 450 205 0.9 Normal Saline @ KVO 60 50 5 Ciprofloxacin/Dextrose 400 200 Pmx 400 mg In Dextrose/ Water 1 200ml.bag @ 200 mls/hr IVPB Q8H [facility] Rx#: [id number] Potassium Chloride 10 meq 200 In Water For Injection 1 100ml.bag @ 100 mls/hr IVPB Q1H [facility] Rx#: [id number] Intake, IV Titration 282.706 182.520 95.333 Amount Dexmedetomidine/0.9% NaCl 282.706 182.520 95.333 (Pmx) 400 mcg In Empty Bag 1 bag @ 0.2 MCG/KG/HR 5.2 mls/hr IV .[id number] [facility] Rx#:[id number] TPN/PPN 1080 1080 90 TPN 1080 1080 90 Output: Chest Tube Drainage 50 100 Chest Tube Right 50 100 Drainage 100 Right Abdomen 100 Urine 1650 1800 525 Other: Voiding Method Indwelling Catheter Indwelling Catheter Indwelling Catheter ABP, PAP, CO, CI - Last Documented Arterial Blood Pressure 173/76 - Exam General: Revealed 73-year-old white male on mechanical ventilation, on Precedex, Skin: Skin is warm and dry and no rashes or lesions are noted. Eye: Pupils are equal, round and reactive to light, extra-ocular movements are intact; there is normal conjunctiva bilaterally. Ears, nose, mouth and throat: There are moist mucous membranes and no oral lesions. Neck: The neck is supple, there is no tenderness or JVD. Tracheostomy is intact. Cardiovascular: There is a regular rate and rhythm. No murmur, rub or gallop is appreciated. Respiratory: Crackles at the bases, no rhonchi no wheezes, right-sided pigtail catheter is noted, evidence of air leak noted. Gastrointestinal: no rebound, no guarding, no bowel sounds, wound VAC is noted jejunostomy tube is noted, surgery is considering removing the jejunostomy tube altogether. Musculoskeletal: No deformities and no limitation range of motion other the patient seems to be generally weak. Neurological: Patient is arousable does not follow any instructions today. Extremities: 1+ bipedal edema - Labs CBC & Chem 7: 01/13/24 05:54 01/13/24 05:47 Labs: Abnormal Lab Results - Last 24 Hours (Table) 01/12/24 01/13/24 01/13/24 Range/Units 17:53 00:07 04:57 RBC (4.30-5.90) m/uL Hgb (13.0-17.5) gm/dL Hct (39.0-53.0) % RDW (11.5-15.5) % Lymphocytes # (1.0-4.8) k/uL ABG Total CO2 26 H (19-24) mmol/L ABG O2 Saturation 97.9 H (94-97) % Hemoglobin 7.8 L (13.0-17.5) gm/dL Sodium (137-145) mmol/L Carbon Dioxide (22-30) mmol/L BUN (9-20) mg/dL Glucose (74-99) mg/dL POC Glucose (mg/dL) 178 H 186 H (70-110) mg/dL Calcium (8.4-10.2) mg/dL Alkaline Phosphatase (38-126) U/L Total Protein (6.3-8.2) g/dL Albumin (3.5-5.0) g/dL 01/13/24 01/13/24 01/13/24 Range/Units 05:46 05:47 05:54 RBC 2.67 L (4.30-5.90) m/uL Hgb 8.1 L (13.0-17.5) gm/dL Hct 24.8 L (39.0-53.0) % RDW 16.0 H (11.5-15.5) % Lymphocytes # 0.9 L (1.0-4.8) k/uL ABG Total CO2 (19-24) mmol/L ABG O2 Saturation (94-97) % Hemoglobin (13.0-17.5) gm/dL Sodium 130 L (137-145) mmol/L Carbon Dioxide 20 L (22-30) mmol/L BUN 41 H (9-20) mg/dL Glucose 192 H (74-99) mg/dL POC Glucose (mg/dL) 210 H (70-110) mg/dL Calcium 7.0 L (8.4-10.2) mg/dL Alkaline Phosphatase 235 H (38-126) U/L Total Protein 6.0 L (6.3-8.2) g/dL Albumin 1.9 L (3.5-5.0) g/dL 01/13/24 Range/Units 11:20 RBC (4.30-5.90) m/uL Hgb (13.0-17.5) gm/dL Hct (39.0-53.0) % RDW (11.5-15.5) % Lymphocytes # (1.0-4.8) k/uL ABG Total CO2 (19-24) mmol/L ABG O2 Saturation (94-97) % Hemoglobin (13.0-17.5) gm/dL Sodium (137-145) mmol/L Carbon Dioxide (22-30) mmol/L BUN (9-20) mg/dL Glucose (74-99) mg/dL POC Glucose (mg/dL) 183 H (70-110) mg/dL Calcium (8.4-10.2) mg/dL Alkaline Phosphatase (38-126) U/L Total Protein (6.3-8.2) g/dL Albumin (3.5-5.0) g/dL Microbiology - Last 24 Hours (Table) 01/07/24 12:15 Gram Stain - Final Pleural Fluid Body Fluid Culture - Final Pseudomonas aeruginosa Alejandra albicans Assessment and Plan Assessment: Impression: Acute hypoxic respiratory failure requiring intubation mechanical ventilation secondary to aspiration. Status post tracheostomy on 12/10/2023 The patient has bilateral pneumonia with a cavitary infiltrate in the right upper lobe, secondary to Pseudomonas aeruginosa and Citrobacter and the patient is currently on a combination of ciprofloxacin, fluconazole, and tobramycin CAT scan of the chest done on 12/17/2023 was reviewed and the patient has a cavitating cyst/abscess in the posterior aspect of the right upper lobe in addition to patchy opacities bilaterally right more than left consistent with pneumonia,/gram-negative pneumonia. The patient had a pigtail catheter inserted with drainage of the right lung abscess. The bronchial washing is positive for Pseudomonas aeruginosa, quinolone sensitive and the cultures from the pigtail catheter/lung abscess was also positive for Pseudomonas aeruginosa.. Status post J-tube placement 11/16/2023, multiple complications since then related to the J-tube placement requiring multiple surgeries. Ongoing leak around the J-tube, improving still cannot use the J-tube for feeding Persistent right apical pneumothorax with persistent air leak noted in the pigtail catheter Acute peritonitis secondary to above, secondary to small bowel perforation with abdominal contamination Septic shock secondary to above Paroxysmal atrial fibrillation Acute kidney injury requiring hemodialysis secondary to sepsis and septic shock, last hemodialysis was on the , apparently patient is not requiring hemodialysis since then and nephrology planning to discontinue his dialysis catheter from the left groin Weight loss secondary to non-Hodgkin's lymphoma Acute aspiration pneumonia/right upper lobe lung abscess Acute aspiration during upper endoscopy most likely secondary to gastric outlet obstruction secondary to non-Hodgkin's lymphoma based on the pathology from stomach biopsies 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 Critical illness polyneuropathy Metabolic encephalopathy Malfunctioning of the J-tube Recommendation: Continue ventilatory support Continue antibiotics and antifungal therapy Continue Dilaudid and Precedex Continue nutritional support/TPN Close monitoring of daily labs, and monitor daily x-rays of the chest Continue GI and DVT prophylaxis Remains critically ill General Surgery still following regarding his malfunctioning J-tube and wound VAC. Family was updated today on his condition, CODE STATUS was changed to DNR, I even touched bases and seriously considering hospice. Family will think about Prognosis is extremely poor and guarded Critical care time is over 30 Will continue to follow Time with Patient: Greater than 30
--- NOTE | 2024-01-13 12:05 | P.PN ---
Subjective Progress Note Date: 01/13/24 Principal diagnosis: Reason for follow-up is pneumonia and bacteremia Patient is 73-year-old with male initial presentation to the hospital on 11/11/2021 for after the patient did have aspiration while undergoing elective endoscopy, diagnosed with a non-Hodgkin of, subsequently did have explained laparotomy for perforated small bowel abdominal washout and feeding jejunostomy tube patient did require dialysis catheter placement for dialysis during this hospital stay and tracheostomy for respiratory failure, infectious was consulted for fever. On today's evaluation that is 01/13/2024,the patient continues to be afebrile, the patient remains to be intubated on the vent through the trach FiO2 is currently stable at 30% no significant purulent secretion through the ET patient not requiring any pressor support. Patient white count 6.2, creatinine 0.80 chest x-ray this morning bibasilar infiltrate opacity of the right costophrenic angle has diminished in intensity Objective - Vital Signs Vital signs: Vital Signs Temp 98.9 F 01/13/24 08:00 Pulse 86 01/13/24 10:00 Resp 27 H 01/13/24 10:00 BP 128/90 01/13/24 10:00 Pulse Ox 94 L 01/13/24 10:00 FiO2 30 01/13/24 10:44 Intake & Output 01/12/24 01/13/24 01/13/24 18:59 06:59 18:59 Intake Total 0426.045 8479.520 390.333 Output Total 1700 2000 525 Balance -77.294 -287.480 -134.667 Weight 104.5 kg 104.5 kg Intake: IV 260 450 205 0.9 Normal Saline @ KVO 60 50 5 Ciprofloxacin/Dextrose 400 200 Pmx 400 mg In Dextrose/ Water 1 200ml.bag @ 200 mls/hr IVPB Q8H [facility] Rx#: [id number] Potassium Chloride 10 meq 200 In Water For Injection 1 100ml.bag @ 100 mls/hr IVPB Q1H [facility] Rx#: [id number] Intake, IV Titration 282.706 182.520 95.333 Amount Dexmedetomidine/0.9% NaCl 282.706 182.520 95.333 (Pmx) 400 mcg In Empty Bag 1 bag @ 0.2 MCG/KG/HR 5.2 mls/hr IV .[id number] [facility] Rx#:[id number] TPN/PPN 1079 1080 90 TPN 1080 1080 90 Output: Chest Tube Drainage 50 100 Chest Tube Right 50 100 Drainage 100 Right Abdomen 100 Urine 1650 1800 525 Other: Voiding Method Indwelling Catheter Indwelling Catheter Indwelling Catheter ABP, PAP, CO, CI - Last Documented Arterial Blood Pressure 173/76 - Exam GENERAL DESCRIPTION: An elderly male lying in bed in no distress RESPIRATORY SYSTEM: Unlabored breathing , decreased breath sounds at bases HEART: S1 S2 regular rate and rhythm , ABDOMEN: Soft , no tenderness EXTREMITIES: No edema feet - Labs CBC & Chem 7: 01/13/24 05:54 01/13/24 05:47 Labs: Abnormal Lab Results - Last 24 Hours (Table) 01/12/24 01/13/24 01/13/24 Range/Units 17:53 00:07 04:57 RBC (4.30-5.90) m/uL Hgb (13.0-17.5) gm/dL Hct (39.0-53.0) % RDW (11.5-15.5) % Lymphocytes # (1.0-4.8) k/uL ABG Total CO2 26 H (19-24) mmol/L ABG O2 Saturation 97.9 H (94-97) % Hemoglobin 7.8 L (13.0-17.5) gm/dL Sodium (137-145) mmol/L Carbon Dioxide (22-30) mmol/L BUN (9-20) mg/dL Glucose (74-99) mg/dL POC Glucose (mg/dL) 178 H 186 H (70-110) mg/dL Calcium (8.4-10.2) mg/dL Alkaline Phosphatase (38-126) U/L Total Protein (6.3-8.2) g/dL Albumin (3.5-5.0) g/dL 01/13/24 01/13/24 01/13/24 Range/Units 05:46 05:47 05:54 RBC 2.67 L (4.30-5.90) m/uL Hgb 8.1 L (13.0-17.5) gm/dL Hct 24.8 L (39.0-53.0) % RDW 16.0 H (11.5-15.5) % Lymphocytes # 0.9 L (1.0-4.8) k/uL ABG Total CO2 (19-24) mmol/L ABG O2 Saturation (94-97) % Hemoglobin (13.0-17.5) gm/dL Sodium 130 L (137-145) mmol/L Carbon Dioxide 20 L (22-30) mmol/L BUN 41 H (9-20) mg/dL Glucose 192 H (74-99) mg/dL POC Glucose (mg/dL) 210 H (70-110) mg/dL Calcium 7.0 L (8.4-10.2) mg/dL Alkaline Phosphatase 235 H (38-126) U/L Total Protein 6.0 L (6.3-8.2) g/dL Albumin 1.9 L (3.5-5.0) g/dL 01/13/24 Range/Units 11:20 RBC (4.30-5.90) m/uL Hgb (13.0-17.5) gm/dL Hct (39.0-53.0) % RDW (11.5-15.5) % Lymphocytes # (1.0-4.8) k/uL ABG Total CO2 (19-24) mmol/L ABG O2 Saturation (94-97) % Hemoglobin (13.0-17.5) gm/dL Sodium (137-145) mmol/L Carbon Dioxide (22-30) mmol/L BUN (9-20) mg/dL Glucose (74-99) mg/dL POC Glucose (mg/dL) 183 H (70-110) mg/dL Calcium (8.4-10.2) mg/dL Alkaline Phosphatase (38-126) U/L Total Protein (6.3-8.2) g/dL Albumin (3.5-5.0) g/dL Microbiology - Last 24 Hours (Table) 01/07/24 12:15 Gram Stain - Final Pleural Fluid Body Fluid Culture - Final Pseudomonas aeruginosa Alejandra albicans Assessment and Plan (1) Sepsis Current Visit: Yes Status: Acute Code(s): A41.9 - SEPSIS, UNSPECIFIED ORGANISM SNOMED Code(s): 92632115 (2) Pneumonia Current Visit: Yes Status: Acute Code(s): J18.9 - PNEUMONIA, UNSPECIFIED ORGANISM SNOMED Code(s): 401447274 (3) Bacteremia Current Visit: Yes Status: Acute Code(s): R78.81 - BACTEREMIA SNOMED Code(s): 8493118 Plan: 1patient with complicated pneumonia and lung abscess on the CT status post drainage catheter placement by interventional radiology subsequently did have purulent pleural fluid which has been cultured did have a chest tube and is growing Pseudomonas with slightly different sensitivity from the sputum Pseudomonas aeruginosa. 2-patient also have evidence of retro vesicular abscess on the CT abdominal pelvis, this has been discussed with the surgical team on the case in person however mention patient would not be able to tolerate any further surgery. 3patient pleural fluid cultures are growing Pseudomonas aeruginosa that is sensitive to Zerbaxa as well as tobramycin and Cipro and also growing Alejandra albicans 4patient to continue with IV Cipro and Diflucan, we will switch tobramycin to Zerbaxa to which the organism from the pleural fluid is sensitive to and will also decrease risk of nephrotoxicity at the bedside multiple question answered Dictation was produced using [employer] dictation software. please excuse any grammatical, word or spelling errors. Time with Patient: Less than 30
--- NOTE | 2024-01-13 12:21 | P.PN ---
Progress Note - Text Progress Note Date: 01/13/24 Chief Complaint: On the ventilator This is a 73-year-old patient, follows with Dr. Patricia Deal. Patient was seen this morning in the ICU. Patient's and daughter at the bedside. History obtained predominantly by the . Patient been having trouble with his stomach symptoms for close to 8 months. Patient underwent EGD by Dr. Sahara Cheng yesterday. Patient was found to have ulcerated around the antrum and obstruction to the pylorus. A lot of retained food was found. Patient aspirated. Had to be intubated and brought to the ICU. On a Levophed drip. FiO2 50 and a PEEP of 6. Patient had been losing weight lost about 25 pounds. Previously has a history of mitral valve prolapse. November 13: ICU. Patient remains on Precedex drip and propofol drip. Did not do well attempted extubation yesterday. Patient been off Levophed. NG tube to suction. Spoke to patient's and son at the bedside. Biopsy results awaited. Hemoglobin dropped to 6.9 this morning. Get a unit of blood. November 14: ICU. Up in a chair. Extubated yesterday. NG tube to suction. at the bedside. 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 Oncology was consulted. They have ordered a port. Results discussed with Dr. Sahara Cheng. General surgery was consulted for J-tube placement. Discussed with at the bedside. Patient getting IV fluids, IV Zosyn,. Patient has been on IV amiodarone for A-fib-back in sinus rhythm. Multiple PACs. Did receive unit of blood yesterday. Also IV ferric gluconate. November 15: ICU. Patient earlier today underwent jejunostomy tube placement and a port placement. Patient awake. Answering questions. NG tube to suction present. Updated patient's . Patient remains on IV amiodarone and IV Zosyn. November 16: ICU. Up in the chair. NG tube present but not to suction. Trickle feeding through the jejunostomy tube should be started today. Dietitian has been on board. IV Zosyn to continue. Patient's and his sister at the bedside. Discussed. Also spoke with Dr. Serna. Given patient has no other predisposing cardiac factors for the A-fib except acute illness. His LV function is normal. Left atrium is normal. He has already been loaded with IV amiodarone. Will switch him to oral Lopressor 12.5 twice daily. Hence will DC amiodarone. Patient yesterday had wheezing was put on bronchodilators steroids per pulmonary. November 17: Propped up in bed. NG tube was discontinued. Sinus rhythm. Remains NPO. Getting G-tube feeding at 40 cc an hour. Dietitian following. Get arrangements done for DC home tomorrow including tube feeding. Increase activity discussed with patient and elder daughter at the bedside. Still requiring oxygen. Incentive spirometry. November 18: Patient up in recliner. Earlier today spoke to social media community manager David. Informed patient is rather weak and will be going to the [facility]. Looking at authorization. Denae came to the room and spoke to patient his and his daughter. They are very keen to take the patient home as 3 daughters all nurses and they will take care of him at home. Patient earlier today to abdominal cramping and some loose stools.'s tube feeding was held. Told the nurse to start back at the rate of 40 cc an hour. He was before the getting it at 55 cc an hour. Incentive spirometry was again emphasized. Patient remains on 4 L of oxygen. November 19: I saw the patient this morning. Hence I am in the evening. Morning was sitting with his sons. Has some edema. Lungs had crackles I gave him 40 mg of Lasix. He did make good urine. Tube feeding was held from the p revious evening of because of abdominal cramping. Acute abdominal series showed nonspecific bowel gas pattern and SBO to be ruled out. Family and patient was updated. Told him discharge will depend on day by day. Later this afternoon CT scanAnd abdomen pelvis done. Showed small bowel to be 3 point centimeter dilated. Some anasarca. Gastric findings. Gallstones. Later spoke to Dr. Irby from general surgery. They will further review and decide about further plan of action. Will give further dose of IV Lasix because of fluid overload from likely hypoalbuminemia and IV fluids previously received. Patient may take his pills by mouth. Total time spent today about 1 hour with over 40 minutes of discussion. Patient did state his breathing is better after Lasix this morning. November 20: Saw the patient this morning. was present. Patient received 2 more doses of Lasix. Diuresed well. Breathing much better. Lungs are sounding better. Discussed with Dr. Zepeda other surgeon. He is taking 3 cc out of the balloon and the gastrostomy tube. Started trickle feeding at 5 cc an hour. Will see how this does. Later in the day ran into the and the daughter again. Did update them on the same. Dilaudid was discontinued yesterday but morphine was ordered by surgery for patient having pain. Concerns about GI issues with that we will DC the morphine. As family does not want the same. November 21: Patient reclining bed. Tired. Several family members at the bedside. Including his and eldest daughter. Patient started on trickle feed yesterday at 5 cc an hour. This morning he has been on 10 cc an hour. Still having some loose stools. C. difficile was ordered. Patient on 2 L of nasal cannula. Has diuresed well. Will give an additional dose of Lasix today. If C. difficile is negative and the diarrhea is from the tube feedings we may have to use a fecal management system to keep him comfortable. Otherwise patient remains NPO. Dietitian is following the patient. Care was discussed length with patient the and daughter at the bedside. Questions answered. Liquid Tylenol has been added for abdominal pain. Avoid narcotics. Elevated white count likely from Solu-Medrol 11/23/2023--patient was feeling better today. Multiple family member at bedside. No issues overnight. Normal saline at 10 cc an hour, tube feeding at 20 cc an hour, remains on Zosyn, on 3 L oxygen. Afebrile. Heart rate 62, respiratory rate 16, blood pressure 114/67, saturating 91% on 3 L. WBCs 14.5, 9.7 hemoglobin. Platelet 242. BMP is unremarkable. Pulmonary and general surgery following. General surgery recommended to continue tube feeds at 20 cc/h. 11/24/2023--patient reported significant abdominal discomfort, also noted to have leak around G-tube. General surgery is following, evaluated the patient at bedside, adjusted tube feeds. Also reported having diarrhea, on 2 L oxygen, went up to 5 L. Blood pressure was low, 500 mL fluid bolus with close monitoring of respiratory status ordered. Currently on DuoNebs, Solu-Medrol, will continue Zosyn. Chest x-ray showed a left lower lobe infiltrate. Abdominal x-ray showed multiple air-fluid levels. CT abdomen showed multiple dilated small bowel loops, consistent with obstruction, pneumoperitoneum, cholelithiasis and ascites. WBCs 14.1, platelet 255, hemoglobin 8.9. NG tube in place. Family at bedside. patient transferred to SICU for close monitoring. 11/25/23--patient is currently in the ICU, required Levophed overnight due to low blood pressure, low urine output with creatinine trending up. Nephrology following. Occupational Health And Safety Officer also following. Patient remains n.p.o., NG tube in place, following NG tube insertion patient had total of 2 L output, J-tube was draining approximately 200 cc over last 8 hours, continues to have abdominal pain and abdominal tenderness. Patient on IV fluids. Currently on 4 L oxygen. WBCs 8.2, hemoglobin 12.3, platelet 188. Chest x-ray earlier today showed right sided port and a stable left lung airspace disease, NG tube in place. Patient currently on Zosyn, on IV Dilaudid for pain control, on IV Solu-Medrol. General surgery planning for OR today, started on TPN. 11/26/23--patient was seen and examined today. Patient is currently sedated, intubated on mechanical ventilation. Family at bedside. Patient underwent ex lap, abdominal washout, small bowel resection with new feeding jejunostomy tube placement yesterday, small bowel was noted to be perforated with significant contamination of abdominal cavity. Patient is currently on vancomycin and Zosyn. Creatinine went up to 2.85, nephrology following, recommended to continue IV fluids, avoid nephrotoxin Preserved EF on echocardiogram.. Patient currently on Levophed, vasopressin in the ICU for close monitoring. Patient is afebrile, heart rate 122, blood pressure 129/76, currently on mechanical ventilation, sedated. November 26: ICU. Intubated. FiO2 60 and a PEEP of 5. Drips include IV amiodarone. Heart rate was up early did get fired microgram of IV digoxin and 2.5 mg of IV Lopressor. Did drop her blood pressure bit. Urine output was low. Received 80 mg of IV Lasix. Ahmet to 150 cc. Other drips include IV propofol, vasopressin, Levophed. TPN was started yesterday. Antibiotics include IV Zosyn and vancomycin. Patient has a J-tube to drainage to gravity. Spoke to patient's younger daughter and at the bedside. Prognosis guarded. Continue current treatment plan. Chest x-ray shows right lower lobe consolidation. Small pleural effusion. November 27: ICU. Intubated. FiO2 55 and a PEEP of 5. Antibiotics include IV vancomycin. Drips include Levophed at a small dose, IV vasopressin, propofol, amiodarone. Patient converted to sinus rhythm this morning. Getting TPN and normal saline at 75 cc an hour. Urine output about 25 cc an hour. RAYA drain put out about 260 cc last 12 hours that is last warehouse shift supervisor. NG tube with bilious output. And also GI J-tube output to gravity. Spoke to patient's and daughter at the bedside. They understand patient still not out of the kee. Platelets have dropped-therefore probably Zosyn stopped. November 28: ICU. Intubated. FiO2 55 and a PEEP of 5. Patient is in sinus rhythm. Seen this morning. Due for dialysis catheter this afternoon. Urine output about 15 to 20 cc an hour. Patient is on IV Lasix 80 mg every 12. Saline is KVO. Drips include IV propofol vasopressin. Patient having significant output through the RAYA drain and the jejunostomy tube to drainage. Creatinine had been getting worse. Patient's at the bedside. Understands patient's remains critically ill. Hemoglobin is down to 7. Given that patient's pain hypotensive, and on vasopressin we will give a unit of blood with dialysis. Getting TPN antibiotic changed to IV meropenem November 29: ICU. Intubated. FiO2 55 and a PEEP of 5. Remains in sinus rhythm. Getting TPN. Dialyzed yesterday and this morning. About 1000 cc removed. Urine output about 50 cc an hour. Patient is on IV propofol. Off vasopressin. Still having significant output through the RAYA drain and jejunostomy tube. Patient received a second unit of blood yesterday. Patient's and daughter at the bedside. I did discuss guarded prognosis. Did asked them to revisit CODE STATUS.. Getting IV meropenem. November 30: ICU. Intubated. Did get a sedation holiday t today. Back on propofol. Getting TPN. Still getting IV Lasix. Fair urine output. Jejunostomy tube in last 8 hours was about 30 cc output. RAYA drain in the 8 hours had about 180 cc output. Telemetry shows sinus rhythm. NG tube has low intermittent suction with negative output. On the vent with FiO2 40 and a PEEP of 5. No hemodialysis today. Discussed with the and eldest daughter at the bedside. IV meropenem-patient's sputum had grown Citrobacter freundii and Pseudomonas aeruginosa. December 01: ICU. Intubated. Jejunostomy tube to gravity. Only 10 cc output in last 24 hours. RAYA drain. About 190 cc last 6 hours. Nasogastric tube to low intermittent suction. Minimal output. Patient is on a small dose of propofol 5 mics. Telemetry shows sinus rhythm. Patient started on small dose of Cleviprex this morning. Blood pressure. Getting TPN. FiO2 35 and PEEP of 5. Discussed with the at the bedside. Hemodialysis today December 02: ICU. Patient remains intubated. FiO2 35 PEEP of 5. Patient is on IV propofol. IV Cleviprex was discontinued yesterday. Also remains on TPN. Telemetry shows sinus rhythm. NG tube is good no output. Still significant output through the RAYA drain. Jejunostomy tube has minimal output. Patient had hemodialysis today 2 L of fluid was removed. Oral half liters yesterday. Patient getting a sedation holiday. General Surgery started the patient on trickle feeding at 10 cc an hour. I did speak to patient's at the bedside. Prognosis remains guarded but there is some improvement. December 03: ICU. Intubated. FiO2 35 PEEP of 5. Drips include IV propofol and Precedex. Getting TPN. Telemetry shows sinus rhythm. Remains on IV Lasix 80 mg twice a day. IV meropenem. Because patient gets easily agitated when transitioning off propofol he has been switched over to Precedex. For hemodialysis today. December 04: ICU. Intubated. FiO2 35 and a PEEP of 5. Patient been taken off propofol is on Precedex. Telemetry sinus rhythm. J-tube with minimal output. RAYA drain with decreased output. NG tube to suction minimal output. Family wanted to hold off trickle feeding until cleared by oncology. Which he did today. Trickle feeding will be started today. Spoke to patient's and one of the daughters at the bedside. Dr. Russ is spoken to the earlier this point they want to do further tracheostomy tube. October 4: ICU. Intubated. FiO2 35 PEEP of 5. Patient remains on Precedex and PPN. Patient's dialysis catheter was not functioning is getting another [address] Bobby this afternoon. Remains on IV meropenem. Has a RAYA drain in the jejunostomy tube to gravity. NG tube to low intermittent suction. No family at the bedside. December 06: ICU. Intubated. FiO2 35 PEEP of 5. RAYA drain putting out about approximately 120 cc per shift. Patient on IV Precedex. FiO2 35 PEEP of 5. Telemetry-sinus rhythm. Patient occasionally been put on small dose of Levophed specially for hemodialysis getting it today. Also started on midodrine for low blood pressure. Tolerating tube feeding at 10 cc an hour. Also had a bowel movement. Mentation has not improved. Even with sedation holiday. Neurology consulted. CT brain shows no acute process. December 07: ICU. Intubated. FiO2 35 PEEP of 5. Telemetry-sinus rhythm. NG tube to suction low intermittent minimal output. Getting TPN. Tube feeding at 20 cc an hour. RAYA drain averaging over 100 cc per shift. Remains on Precedex. EEG was done today. Discussed with at the bedside. Family is currently not inclined for tracheostomy tube today. Day 13 of being intubated December 08: ICU. Intubated. FiO2 35 PEEP of 5. Patient is put on back on propofol per tub chucker Dr. JIMENEZ. EEG did show some potential for spikes was put on Keppra by neurology. Telemetry shows sinus rhythm. NG tube to suction with no output. Tube feeding was put on hold because of questionable discharge on the site. Being restarted today. RAYA drain is 150 cc last 12-hour shift. Patient does open eyes. Family has decided to proceed with tracheostomy and surgery has been consulted for the same. Spoke to the at the bedside. For hemodialysis today. December 09: ICU. Intubated FiO2 35 PEEP of 5. Patient seen this morning. Pending tracheostomy placement this afternoon. Remains NPO. G-tube feeding was held overnight. RAYA drain putting out about 100 cc per shift. Received a unit of blood for hemoglobin of 6.6. On 25 mics of propofol. Getting TPN and meropenem. Spoke to the at the bedside. Patient became hypotensive with dialysis yesterday. Levophed had to be given. Only 800 cc were removed yesterday. No hemodialysis today. December 10: ICU . FiO2 35, PEEP 5. Tracheostomy was done yesterday by Dr. Ewing. G-tube feeding was started today at 10 cc an hour. Dietitian following. RAYA drain 12-hour shift overnight put out about 30 cc. Patient hemodialysis today about 1 L removed. Patient has a sacral stage II decub with a dressing. On propofol 20 mics. Spoke to at the bedside. TPN. Meropenem was discontinued yesterday. December 11: ICU. FiO2 35 PEEP of 5. Tracheostomy. NG tube was discontinued. No hemodialysis today. Telemetry shows sinus rhythm. J-tube feeding at 40 cc an hour. TPN was discontinued. Patient has been off propofol also. PICC line in place. Patient had a EEG done today. Spoke to patient's elder daughter at the bedside. May open eyes occasionally. Not really following commands December 12: 73-year-old white male with history of chronic abdominal pain for the last 8 months has been treated with Protonix 40 mg daily for the last 3 months with no improvement. Patient had a 22 pound weight loss in the last [address] of the abdomen and pelvis 3 weeks ago showed thickening of the antral wall with pathological adenopathy posterior to the stomach suspicious of neoplasm. Today the patient underwent elective upper endoscopy to evaluate further, patient received IV sedation by anesthesia endoscope was inserted into the mouth, esophagus was intubated without any difficulty there was evidence of large amount of liquid and solid food noted in the stomach suggestive of gastric outlet obstruction. Scope could not be advanced through the pylorus, however in the prepyloric area there was a large superficial ulceration identified with multiple biopsies were done from this area. The body cardia and fundus could not adequately visualize because of large amount of retained food in the s tomach. Scope was withdrawn back to the stomach and upon careful examination the mucosa of the antrum body and cardia as well as the fundus appeared normal. Procedure was being performed and biopsies were done patient threw up and subsequently became hypoxic there was clearly evidence of witnessed aspiration anesthesia intubated the patient, procedure was terminated, and the patient was transferred to the ICU, this consult was initiated. Patient is now on assist- control rate of 20 tidal volume 500 FiO2 70% PEEP of 10 ABG is pending, earlier ABG showed profound hypoxia patient is on propofol at 50 mcg/kg/min, next ABG is pending. Chest x-ray showed chronic changes without evidence of acute pulmonary disease. 12/14/2023 Patient remains in the ICU, generally weak Patient s/p tracheostomy G-tube in place Patient still has fever and mild tachycardia but tachycardia is improving, leukocytosis improving as well. Hemoglobin 8.1. Creatinine 3.0 and nephrology team on the case. He has mild transaminitis. He was getting Zosyn which is held now, nowCalcitonin is pending 12/14 Patient shon in the ICU, he is still encephalopathic and does not follow command. Neurology service following closely. He is status post tracheostomy. Also J-tube His abdomen looks soft and on exam he has mild coarse secretions. Has a Abarca catheter with clear urine His pro- Calcitonin is still high but trending down 3.0 down to 1.9 No fever this morning WBC slightly less at 16.3 Patient currently off antibiotic He is getting steroids IV Solu-Medrol which might contribute to his leukocytosis. Also he is on IV Keppra by neurologist 12/14 Patient remains confused in the ICU calm, he had a good night per family member and staff. Tracheostomy in place Patient has occasional coughing spells, patient also developed some partial wound dehiscence in his abdomen, surgery team are aware and are going to evaluate the patient Patient also has positive blood culture from 12/13: Gram-positive cocci in clusters. Patient received one-time dose of IV vancomycin. Patient also had fever 2 days ago, leukocytosis and total elevated pro- Calcitonin. Therefore we are going to consult infectious disease team. As his antibiotic Zosyn was stopped few days ago. Currently patient KVO He has good urine output December 16: ICU. Trach. Congested. Requiring suctioning. No hemodialysis today. Getting G-tube feeding at 50 cc an hour. FiO2 30 and a PEEP of 5. On IV Precedex. Eyes open. Does follow commands. Weakness in the limbs. Spoke to at the bedside. Sputum positive for Klebsiella oxytoca and Pseudomonas aeruginosa. December 17: ICU. On trach. Currently cough with increased secretions requiring suctioning. Adding scopolamine patch. Very much clear secretion. CT scan is showing right upper lobe lung abscess. G-tube feeding at 50 cc an hour. Hemodialysis today. RAYA drain putting out about 140 cc a shift. Serous. Has been midline incision wound dehiscence. Wound VAC was placed on it. Stage II ulcer. Patient is on Precedex drip 0.15 mics. Urine output is good about 6200 cc an hour. Spoke to the at the bedside. Patient currently not stable for transfer to LTAC. No limb movements. PT OT on the case. otherwise awake does follow simple commands by face December 18: ICU. Patient seen this afternoon. Because of pain getting IV Dilaudid. No nasal cannula on room air. Does move about his head. Telemetry shows sinus rhythm. FiO2 30 and a PEEP of 5. Patient started on scopolamine patch yesterday has decreased secretions today. Good urine output. Tube feeding at 60 cc an hour. Wound VAC on incisional would be high since in place. RAYA drain continues to make output. No hemodialysis today December 19: ICU. Patient was seen earlier today. FiO2 30 and a PEEP of 5. Sinus rhythm. Awake. Does follow with eyes. Tube feeding got obstructed tube feedings held for now. Increasing oozing from the incision drainage site. at the bedside. Wound VAC remains in place. Good urine output. Dialysis held today. December 20: ICU. Per nephrology no dialysis today. 1 L fluid bolus given. J- tube was replaced over the wire by Dr. Ewing from surgery. On Precedex 0.6 mcg. FiO2 30 and a PEEP of 5 on the vent. RAYA drain putting out of around 100 cc per shift. at the bedside. Drainage through the abdominal incision wound. CT scan abdomen showed tube placement in the small bowel. Stable large right lower quadrant mass with a fluid level. December 21: ICU. No dialysis today. Patient started on trickle feeding through the J-tube yesterday. He started leaking around the J-tube site. Tube feeding was held. Dressings were placed. Wound VAC remains on the incision. Still having output through the RAYA drain. Patient remains on Precedex 0.4 mcg. FiO2 30 and a PEEP of 5. Sinus rhythm. at the bedside. December 22: ICU. Patient was seen this morning today by me. No dialysis today. Patient's and daughter at the bedside. FiO2 30 and a PEEP of 5. Sinus rhythm. Still having significant secretions through the tracheostomy tube. On Precedex 0.4 mcg. Getting D5W IV fluids. Tube feeding remains to be on hold since yesterday. Still output of RAYA drain. Awaiting input from surgery. Discussed with the and daughter. December 23: ICU. Saw the patient this afternoon. Because of good output of urine dialysis has been discontinued. Telemetry shows sinus rhythm. FiO2 30 and a PEEP of 5. RAYA output has been around 8200 cc an hour. Good urine output. Patient does have very slight movement of the limbs. Wound VAC is putting out about 20 cc per shift. Yesterday when trickle feeding was started patient's J- tube drainage also started leaking around the insertion site. Tube feeding was held. Patient remains on IV Zosyn and Precedex at 0.3 mcg. I had a very lengthy discussion with patient's daughter and at the bedside overall guarded prognosis. Later surgery spoke to the family, and then the nurse called me that family was wanting transferred to [facility]. I spoke to Dr. Irby. They felt they could not offer anything more at this point. I did call the [facility] transfer pricing/signage team member. Gave them the reason for transfer. Later in the ICU nurse informed me through [employer] that [facility] had declined the transfer. Total time spent today about 50 minutes with over 30 minutes of discussion. December 24: ICU. Patient is doing not too well. Sinus rhythm. Drips include norepinephrine and IV propofol. Surgery did put 2 stitches around the J-tube insertion site. Started on TPN today. FiO2 30 PEEP of 5. Patient became hypothermic put on a Manjit hugger. Also hypoglycemic. Decreased urine output. IV fluids increased. Patient's son was at the bedside. I did speak to patient's eldest daughter outside in the waiting room. Did tell the patient doing very poorly. I did try to call the on the phone number she has gone home. Started an IV antifungal today. December 26, 2023 73-year-old white male with history of chronic abdominal pain for the last 8 months has been treated with Protonix 40 mg daily for the last 3 months with no improvement. Patient had a 22 pound weight loss in the last [address] of the abdomen and pelvis 3 weeks ago showed thickening of the antral wall with pathological adenopathy posterior to the stomach suspicious of neoplasm. Today the patient underwent elective upper endoscopy to evaluate further, patient received IV sedation by anesthesia endoscope was inserted into the mouth, esophagus was intubated without any difficulty there was evidence of large amount of liquid and solid food noted in the stomach suggestive of gastric outlet obstruction. Scope could not be advanced through the pylorus, however in the prepyloric area there was a large superficial ulceration identified with multiple biopsies were done from this area. The body cardia and fundus could not adequately visualize because of large amount of retained food in the stomach. Scope was withdrawn back to the stomach and upon careful examination the mucosa of the antrum body and cardia as well as the fundus appeared normal. Procedure was being performed and biopsies were done patient threw up and subsequently became hypoxic there was clearly evidence of witnessed aspiration anesthesia intubated the patient, procedure was terminated, and the patient was transferred to the ICU, this consult was initiated. Patient is now on assist- control rate of 20 tidal volume 500 FiO2 70% PEEP of 10 ABG is pending, earlier ABG showed profound hypoxia patient is on propofol at 50 mcg/kg/min, next ABG is pending. Chest x-ray showed chronic changes without evidence of acute pulmonary disease. 12/27/2023 Patient is seen and evaluated with family at bedside; remains in the ICU intubated and mechanically ventilated. - ABG showed a pO2 of 99 pCO2 31 pH of 7.44. -- Remains on Eraxis daptomycin and Zosyn patient is intermittently requiring Dilaudid, Ativan does not seem to help his agitation and restlessness. -- Continues to have leakage around the jejunostomy tube, and patient is undergoing the J-tube exchange today. Family is at bedside, seems to be quite anxious about his overall condition, and I explained to the that we are doing the best we can considering his critical illness situation and critical illness polyneuropathy. Patient is profoundly weak, and weaning the patient from mechanical ventilation is almost impossible. At least not at this point yet WBC count is 10.9 hemoglobin is 8.1 basic metabolic profile is normal BUN is 46 creatinine 1.90 patient has been off hemodialysis since the . Chest x- ray continues to show stable findings with right upper lobe opacity and right lower lobe opacity and possibly a small right-sided pleural effusion ----Continue ventilatory support, now on IMV mode rate of 16 with pressure support of 14 Continue Precedex and use Dilaudid 0.5 mg every 2-3 hours as needed. Nutritional support patient is now on TPN, Possible J-tube changed today for J- tube malfunction Continue antibiotics including daptomycin and Zosyn, Eraxis was added by infectious disease 12/28/2023 the patient is seen and evaluated in room at bedside; continues to be afebrile, the patient is on the ventilator through the trach FiO2 is currently stable at 30% no significant pleural effusion clinically patient on requiring any pressor support still having drainage around his jejunostomy tube patient dialysis catheter has been discontinued. Patient white count normalized to 7.6, creatinine is 1.51 patient with pneumonia with a sputum showing Citrobacter and Pseudomonas aeruginosa, the patient sputum repeat is still growing Citrobacter and Pseudomonas sensitive to the Pseudomonas is pending continue with Zosyn -patient did have a positive blood culture with staph epi that was oxacillin resistant as the patient did have a PICC line and the dialysis catheter he is on daptomycin repeat blood culture currently growing oxacillin sensitive staph epi, the patient dialysis catheter has been discontinued Has been sent for the culture -patient also have significant excoriation around his jejunostomy tube site which is still leaking Eraxis was added which will be continued as the patient fever pattern has improved and the patient white count has normalized once again discussed with the nursing staff to apply Triad cream which was discussed yesterday but not applied and monitor clinical course closely 12/29/2023 Patient is seen and evaluated with family members at bedside; remains intubated and mechanically ventilated -- ABG showed a pO2 of 105 pCO2 31 pH of 7.45. Remains on Precedex; multiple antibiotics and antifungal including Eraxis daptomycin and Zosyn. -- chest x-ray is showing improvement in his right upper lobe airspace disease/pulmonary abscess. Right lower lobe seems about the same with chronic opacity and possibly some small right-sided pleural effusion. --Family is at bedside, patient is arousable but does not follow any instructions. Gets extremely restless and agitated easily hence patient is receiving Dilaudid which seems to be working much better for this patient than benzodiazepines --possibly transfer the patient to a select care specialty. 12/30/2023 Evaluated in follow-up in the intensive care unit. He remains on the mechanical ventilator. Status post tracheostomy. There has been a decrease in the amount of leakage around the J-tube site he continues on a gravity flow. TPN is infusing tube feedings remain on hold at this time. No bowel movement reported for the last 5 days. X-ray today reveals extensive pleural parenchymal opacities throughout the right with at least a moderate pleural effusion. Mild patchy densities left mid and lower lung are also similar. Blood work reveals a white blood cell count 11.5, hemoglobin 8.1, platelet count of 78, sodium 142, potassium 4.2, BUN of 42, creatinine of 1.22, Phos of 2.3, magnesium 1.9. Patient continues on IV anidulafungin IV Zerbaxa IV daptomycin. Patient is currently sedated with propofol and also Precedex which is currently on hold at this time. December 31, 2023: ICU. Patient continues to do poorly. On propofol 35 mics. Also getting IV Dilaudid and IV Ativan.. Telemetry shows sinus rhythm. J-tube feeding has been discontinued. Significant output through the Abarca bag and around the G-tube site. Patient also putting out through the RAYA drain on the right side. Getting TPN and lipids. Patient is antimicrobial include iv aniedulefungin, IV ceftolozane/tazobactam, IV daptomycin Advance care planning [October 31, 2023] I met with patient's at the bedside. Went through in detail with patient is overall very poor clinical status. Chances of any meaningful recovery next to minimal. I also did mention that patient in my opinion was not stable to go to chronic ventilator setting. I suggested comfort care/hospice. I did not feel and why all honesty that patient is benefiting any further from the treatment we are giving him in fact causing probably more suffering. I also spoke to patient's daughter outside in the waiting room. Total time spent about 50 minutes with over 30 minutes of discussion. Later I called Dr. Luther JIMENEZ the tub chucker after he received a text that family was expressing that some physician expressed he was doing better and giving hope. I spoke to nurse Lemos in the evening and she and Dr. JIMENEZ did go and talk to patient's family at the bedside later. January 01, 2024: ICU. FiO2 30 and a PEEP of 5. Continues to have increased drainage at the G-tube site. Wound VAC in place over the incision. RAYA drain continues to put out excretions. Good urine output. Drips include IV propofol at 20 mics, also getting IV Ativan and Dilaudid. Patient also keeping getting TPN lipids. Spoke to the patient's at the bedside. No further questions. I did speak to Dr. Irby from general surgery. Hence it is both our impression again that changing the tube will not make any difference to the bigger picture. And probably futile. Dr. Irby will be speaking to the family today. David from social media community manager did ask about of family meeting. I did reiterate that I spoken at length to the a few times and also the daughter. Dr. Jimenez also spoke to the and Dr. Irby will be speaking with the today. Prognosis remains to be very poor. I did tell the in my opinion probably the patient is not r a candidate for long-term facility. Will tub chucker Dr. Jimenez determine if the patient is a candidate for long-term chronic ventilator facility. January 02, 2024: ICU. FiO2 30 PEEP of 5. Telemetry sinus rhythm. Drips include propofol at 20 mics. Patient getting TPN lipids. Receiving 1 unit of packed red blood cell. Patient was having a breakdown around the tracheostomy stoma site. With a cuff leak. G-tube site is continues to have increasing output. Wound VAC in place. RAYA drains also having increasing output. Patient sister and daughter from [place] from out of town. Earlier they spoke at length with Dr. alford from general surgery. Prognosis remains poor. January 03, 2024: ICU. FiO2 30 PEEP of 5. On propofol. 50 mics. Getting TPN lipids. Sinus rhythm. Wound VAC in place. Drainage around the j-tube site. RAYA drain continues to drain. Patient somewhat sedated. at the bedside. Later social media community manager David inform me that the surgical team Dr. Irby has suggested possible you have [facility], to which family is trying to obtain transferred to. Per Dr. Jimenez note patient has been decline by long-term care twice. Prognosis remains poor. at the bedside. Had no questions. Brother Nathan is present. January 04, 2024: ICU. FiO2 30 PEEP of 5. Propofol was held this morning. Getting TPN lipids. Sinus rhythm. Wound VAC remains in place. Continues to have drainage around the J-tube. RAYA drain continues to have output. at the bedside. She had no questions. Antibiotics in place. January 05, 2024: ICU. FiO2 30 PEEP of 5. Audibly sounding congested. Getting TPN lipids. Sinus rhythm. Wound VAC in place. Drainage around J-tube site. RAYA output continues. No family at bedside. Getting antibiotics. Lethargic January 06, 2024: ICU. FiO2 30 PEEP of 5. Patient is been off propofol since yesterday. Does move his head about. Try to open his eyes sometimes. Sinus rhythm. Blood pressure is running high yesterday. Started on Cleviprex. Hydralazine is being added. Continue to get TPN lipids. J-tube site remains excoriated. Wound VAC in place. RAYA output about 40 to 50 cc is a 12-hour shift. Patient elder daughter at the bedside. Eraxis was discontinued on January 02. Daptomycin is being discontinued by ID. Continue ceftolo'szone. CT abdomen pelvis done today: 3.1 cm organized fluid collection within the rectovesicular space concerning for abscess. No change in right upper lung 4.9 cm fluid collection with a fluid level. For possible pulmonary abscess. Moderate size right lung base multiloculated hydropneumothorax possibly abscess. Additional areas of air bronchograms. January 07, 2024: ICU. FiO2 30 PEEP of 5. Patient was taken down for pigtail drainage of the right lung abscess. About 200 cc of pus was obtained. Nurse informed me when they told him about for the procedure a lot of pus gushed out from the tracheostomy site. Dr. Love at the bedside did a bronchoscopy. Some pus was aspirated. No obvious fistula was noted. Patient is being back on Cleviprex drip. TPN lipids. January 08, 2024: ICU. Patient was having severe bouts of coughing. Unable to maintain ventilation. Patient was put on Nimbex drip and propofol drip. TPN lipids continue. Has a right chest wall pigtail catheter 90 cc output in 12- hour shift. Drainage from around the J-tube site. RAYA drain continues Ahmet to have an output. Abdominal wound is high since with the wound VAC in place. Patient sedated. January 09, 2024: ICU. Patient is off propofol and Cleviprex. Does open eyes. RAYA drain. About 40 cc last 24 hours. J-tube site continues to have increased output. Requiring dressing change every so often. Wound VAC in place. Patient getting Dilaudid and Ativan. Telemetry shows sinus rhythm. 40 cc out of the pigtail drainage. Patient started on ciprofloxacin and tobramycin. Remains on TPN and lipids. Patient's eldest daughter and at the bedside. No new questions. January 10, 2024: ICU. Overnight patient had become asynchronous. Had to be put on Precedex drip. Hemoglobin dropped down to 6.6. Monitor blood ordered. RAYA output about 100 cc last 24 hours. Wound VAC remains in place. TPN lipid continues. Patient also has a leak in the right pigtail catheter. Sinus rhythm. Continues to have increased secretion at the G-tube site. Ventilator FiO2 30 and a PEEP of 5. at the bedside. Had no further questions. January 11, 2024: ICU. Patient remains on IV Precedex. TPN.'s RAYA output over 30 cc last 24 hours. Wound VAC remains in place. Sinus rhythm. FiO2 30 PEEP of 5. Pigtail with very little output. Spoke to Dr. Love who only spoke to the patient's at length. Gnosis poor. When I walked in patient's 2 daughters and the present. is very tearful crying hugging the patient. The daughter had no further questions January 12, 2024 Ahmet: ICU. Continues on IV Precedex. Getting TPN lipids. Wound VAC in place. Sensitive. FiO2 30 and a PEEP of 5. Patient's at the bedside. Had no questions. January 13, 2024: ICU. FiO2 30 PEEP of 5. Remains on Precedex 0.8 mg. Eyes open. Sometimes does track with head. Not moving limbs. Some decrease in output from the G-tube site. Wound VAC putting out about 100 cc every 12 hours. RAYA drain about 100 cc every [address] Russ met with the family earlier today. Patient's been made DNR. Telemetry sinus rhythm. Patient's and daughter at bedside. They have no questions Active Medications Acetaminophen (Acetaminophen Suppository 650 Mg Supp) 650 mg RECTAL Q6HR PRN PRN Reason: Fever Albuterol/Ipratropium (Ipratropium-Albuterol 3 Ml Neb) 3 ml INHALATION RT-QID NIRMAL Last Admin: 01/13/24 08:08 Dose: 3 ml Albuterol/Ipratropium (Ipratropium-Albuterol 3 Ml Neb) 3 ml INHALATION RT-Q2H PRN PRN Reason: Shortness Of Breath Or Wheezing Last Admin: 01/08/24 04:01 Dose: 3 ml Bisacodyl (Bisacodyl 10 Mg Supp) 10 mg RECTAL DAILY [facility] Last Admin: 01/13/24 09:30 Dose: Not Given Dextrose/Water (Dextrose 50% Syringe 50 Ml) 25 ml IVP PER PROTOCOL PRN; Protocol PRN Reason: Hypoglycemia Last Admin: 01/03/24 06:18 Dose: 25 ml Dextrose/Water (Dextrose 50% Syringe 50 Ml) 50 ml IVP PER PROTOCOL PRN; Protocol PRN Reason: Hypoglycemia Last Admin: 12/25/23 18:03 Dose: 50 ml Hydralazine HCl (Hydralazine Hcl 20 Mg/Ml 1 Ml Vial) 10 mg IVP Q6HR PRN PRN Reason: SBP >140 Last Admin: 01/07/24 23:28 Dose: 10 mg Hydromorphone HCl (Hydromorphone 2 Mg/Ml 1 Ml Syringe) 1.5 mg IVP Q4H [facility] Last Admin: 01/13/24 11:59 Dose: 1.5 mg Fat Emulsion Intravenous 250 (ml/ IV Solution) 250 mls @ 21 mls/hr IV TuThSa@0900 [facility] Last Admin: 01/11/24 09:02 Dose: 21 mls/hr Ciprofloxacin/Dextrose 400 mg/ (IV Solution) 200 mls @ 200 mls/hr IVPB Q8H [facility] Last Admin: 01/13/24 05:50 Dose: 200 mls/hr Dexmedetomidine HCl 400 mcg/ (IV Solution) 100 mls @ 5.2 mls/hr IV .[id number] [facility]; Protocol Last Admin: 01/13/24 08:27 Dose: 0.8 mcg/kg/hr, 20.8 mls/hr Parenteral Vitamin Supplement 10 ml/ Zinc/Copper/Manganese/Selenium 1 ml/ Sodium Acetate 54 meq/ Magnesium Sulfate 2 gm / Calcium Gluconate 1 gm/Potassium Phosphate 24 mmol/Potassium Acetate 20 meq/Amino Acids/Dextrose 2,070 mls @ 90 mls/hr IV .Q23H [facility] Stop: 01/13/24 21:59 Last Admin: 01/12/24 23:21 Dose: 90 mls/hr Fluconazole/Sodium Chloride (200 mg/ IV Solution) 100 mls @ 100 mls/hr IVPB DAILY [facility]; Protocol Last Admin: 01/13/24 09:11 Dose: 100 mls/hr Parenteral Vitamin Supplement 10 ml/ Zinc/Copper/Manganese/Selenium 1 ml/ Sodium Acetate 30 meq/ Magnesium Sulfate 1 gm / Calcium Gluconate 0.5 gm/Potassium Phosphate 9 mmol/Potassium Acetate 10 meq/Amino Acids/Dextrose 1,041 mls @ 90 mls/hr IV .BY DURATION NIRMAL Sodium Acetate 30 meq/Magnesium Sulfate 1 gm/Calcium Gluconate 0.5 gm/Potassium Phosphate 9 mmol/Potassium Acetate 10 meq/Amino Acids/Dextrose 1,030 mls @ 90 mls/hr IV .BY DURATION NIRMAL Ceftolozane/Tazobactam 3 gm/ (Sodium Chloride) 100 mls @ 100 mls/hr IV Q8HR [facility]; Protocol Insulin Aspart (Insulin Aspart (Novolog) 100 Unit/Ml Vial) 0 unit SQ 0000,0600,1200,1800 [facility]; Protocol Last Admin: 01/13/24 11:31 Dose: 2 unit Levetiracetam (Levetiracetam Iv 500 Mg/5 Ml Vial) 250 mg IVP Q24HR [facility] Last Admin: 01/13/24 09:11 Dose: 250 mg Miscellaneous Information (Potassium Replacement Protocol 1 Each Misc) 1 each MISCELLANE DAILY PRN; Protocol PRN Reason: Per Protocol Miscellaneous Information (Magnesium Replacement Protocol 1 Each Misc) 1 each MISCELLANE DAILY PRN; Protocol PRN Reason: Per Protocol Miscellaneous Information (Phosphorus Replacement Protoco 1 Each Misc) 1 each MISCELLANE DAILY PRN; Protocol PRN Reason: Per Protocol Multi-Ingred Cream/Lotion/Oil/Oint (Hydrophilic Cream 180 Gm Tube) 1 applic TOPICAL BID [facility]; Protocol Last Admin: 01/13/24 09:31 Dose: 1 applic Multi-Ingredient Ointment (Zinc Oxide 20% Oint 28.4 Gm Tube) 1 applic TOPICAL BID PRN; Protocol PRN Reason: Skin Irritation Naloxone HCl (Naloxone 0.4 Mg/Ml 1 Ml Vial) 0.2 mg IV Q2M PRN PRN Reason: Opioid Reversal Pantoprazole Sodium (Pantoprazole 40 Mg/10 Ml Vial) 40 mg IVP BID [facility] Last Admin: 01/13/24 09:11 Dose: 40 mg Petrolatum (Zinc Oxide Paste (Z-Guard) 1 Applic) 1 applic TOPICAL BID [facility]; Protocol Last Admin: 01/13/24 09:11 Dose: 1 applic Past medical history to include: GERD Social history: . No smoking. Physical examination: VITAL SIGNS: 98.9, 81, 28, 146.98, 97% on the ventilator GENERAL: Eyes open getting TPN and lipids EYES: Pupils equal. Conjunctiva edouard l. HEENT: External appearance of nose and ears normal, tracheostomy-. NECK: JVD unable to assess; masses not palpable. HEART: First and second heart sounds are normal; edema, present LUNGS: Respiratory rate increased, decreased breath sounds right chest wall pigtail catheter ABDOMEN: Soft, some tenderness. Liver spleen not palpable, no masses palpable..jejunostomy tube-dressing in place, . RAYA drain. Incision with stitches with - wound VAC PSYCH: Unable to assess NEURO: Eyes open. Not really following commands INVESTIGATIONS, reviewed in the clinical context: January 12: White count 6.2 hemoglobin 8.1 platelets 278 potassium 4 creatinine 0.8 January 11: Sodium 132 potassium 3.9 creatinine 0.86 January 09: White count 15.4 hemoglobin 6.7 platelets 188 January 08: White count 15.3 hemoglobin 7.3 platelets 176 potassium 3.6 creatinine 0.89 January 06: White count 11.4 hemoglobin 7.4 potassium 3[address] abdomen pelvis [January 05]: 3.1 cm organized fluid collection within the rectovesicular space concerning for abscess. No change in right upper lung 4.9 cm fluid collection with a fluid level. For possible pulmonary abscess. Moderate size right lung base multiloculated hydropneumothorax possibly abscess. Additional areas of air bronchograms. January 05: White count 10.6 hemoglobin 7.6 platelets 111 sodium 137 potassium 3.5 BUN 44 creatinine 0.95 January 03: White count 13.4 hemoglobin 8.1 platelets 95 potassium 5.2 creatinine 1.1 albumin 1.8 Sputum culture [December 24] Citrobacter freundii, Pseudomonas aeruginosa Blood culture [December 24] Staphylococcus pettenkoferi December 24: White count 1.5 hemoglobin 8.2 platelets 106 potassium 3.8 BUN [address] chest abdomen without contrast [December 16] right upper lung cavitary lesion with air-fluid level in the posterior aspect and a larger cavitary lesion possibly within the lung parenchyma itself. Extending down towards the diaphragm additional airspace opacities in the left lung base. December 09: White count 26.1 hemoglobin 8.6 platelets 154 potassium 4.1 BUN 86 creatinine 3.31. Hemoglobin this morning was 6.6 prior to transfusion EEG-evidence of generalized cerebral dysfunction and sporadic intermittent higher amplitude sharply contoured waves mainly bifrontal. Showing cortical irritability. 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 Serosal fibrous adhesions. Viable margins. Sputum culture: [November 25]: Citrobacter freundii. Pseudomonas aeruginosa November 20: White count 14.4 hemoglobin 8.8 platelets 229 potassium 4.1 BUN [address] scan abdomen [November 19] possible small bowel obstruction Stool: C. difficile negative November 15: WBC 13 hemoglobin 7.7 platelets 248 potassium 4.3 creatinine 0.87 2D echo: EF 55 to 60%. Kidneys bladder: Unremarkable November 13: White count 12 hemoglobin 6.9 platelets 276 potassium 4.4 creatinine 1.21 magnesium 1.8 iron 6 TIBC 365% saturation 1.64 transferrin 261 ferritin 34.6 B12 569 folate 4.4 November 11: Creatinine 0.86 EGD: Large amount of retained solid liquid food noted in the stomach. Large superficial gastric antral ulceration involving most of the antrum extending into the pylorus causing pyloric stenosis. Biopsies were obtained. Chest x-ray film personally reviewed by me-scattered infiltrates Assessment plan: -Aspiration and gram-negative bacterial pneumonia a bilateral initially from retained gastric contents mostly food and liquids, causing acute hypoxic respiratory failure: On presentation: Subsequent bacterial pneumonia sputum culture November 25: Citrobacter freundii, Pseudomonas aeruginosa. December 13: Klebsiella oxytoca, Pseudomonas aeruginosa IV meropenem-, IV Zosyn.IV ceftolozane/tazobactam, IV daptomycin-all discontinued Currently getting IV ciprofloxacin and tobramycin -Patient became asynchronous with the ventilator. On Precedex drip -Breakdown of tracheostomy stoma site. Dressing in place Being followed by tub chucker -Sepsis with septicemia from above Patient received multiple antibiotics -Right l lung abscess, pigtail catheter placed January 07, 2024. Initially about 200 cc of pus obtained. During the procedure large amount of pus poured out of the tracheostomy site when patient was rolled on the left side. Status post bronchoscopy with some lavage on 01/07/2024 - lung abscess larger 1 on the right side-patient cultures are growing Pseudomon as and Klebsiella oxytoca: Slow to respond , Received other antibiotics. Currently on Levaquin and tobramycin -Acute pulmonary edema and fluid overload from hypoalbuminemic state and fluids from IV.:: Has been getting Lasix and dialysis: Both held -Altered mentation. Possibly encephalopathy. Could be delirium.: Not improving CT brain [December 06] nothing acute Neurology following EEG-evidence of generalized cerebral dysfunction and sporadic intermittent higher amplitude sharply contoured waves mainly bifrontal. Showing cortical irritability. Keppra was started on December 07 -Critical care poly- Pedro neuropathy: Slow to respond PT OT -Gallstones, asymptomatic -Small l bowel perforation at site of jejunostomy tube tip with balloon..: Portion of small bowel resected. On November 24. New J-tube was placed.- drainage to gravity:-Now discontinued December 19: J-tube blocked. J-tube replaced on December 20 over wire December 21: Leaking around the J-tube site. Feeding held December 23: J feeding was started yesterday evening but again started leaking increasingly around the J-tube site-feeding held again December 24: J-tube feeding has been held. Patient is currently having increased drainage from the J-tube site -Acute kidney injury. Possible ATN from hypotensive shock: Resolved Renal ultrasound unremarkable. Started on renal replacement therapy on November 28. Last hemodialysis on December 17. Being followed by an nephrology. Good urine output. -Nutrition Jejunostomy tube placed November [address] Ewing Received TPN-this was discontinued. TPN lipids restarted on December 24 -Lung abscess, not improving Antibiotics to continue. Pulmonary and ID following -Midline abdominal incision wound dehiscence Wound VAC placed -Acute recurrent atrial fibrillation-converted to sinus rhythm Received IV amiodarone. Cardiology following Lopressor -Acute hypoxic respiratory failure from aspiration pneumonia, status post ventilator assisted: Reintubated November 25. FiO2 35 PEEP of 5 Tracheostomy tube-by Dr. Zepeda on December 09 -Septic shock, recovered -Hypertension, recurrent Had received Cleviprex. Hydralazine added -Intermittent hypotension: Corrected Intermittent use of Levophed. 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 Also anemia of blood draw. Iron deficiency anemia Received total of 6 units of blood IV iron. -Severe thrombocytopenia. Would consider coagulation disorder secondary to infection., In the setting of underlying lymphoma.: Fluctuating with infection Hematology following. -Acute blood loss anemia, -Sacral stage II decub ulcer Dressing in place -Hypokalemia, multiple causes -Hypoglycemia -GERD PPI -Acute diarrhea secondary to tube feeding.: Resolved C. difficile ruled out. -Large superficial gastric antral ulceration involving the gastric antrum extending into the pylorus with gastric outlet obstruction. 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 -DNR made on January 12 On Precedex. IV ciprofloxacin and IV tobramycin. TPN lipids. and daughter at the bedside. No questions. Made DNR. Prognosis remains very poor Past Medical History Past Medical History: GERD/Reflux History of Any Multi-Drug Resistant Organisms: None Reported Past Surgical History: Heart Catheterization Additional Past Surgical History / Comment(s): colonsocopy,spinal injection, Past Anesthesia/Blood Transfusion Reactions: No Reported Reaction Past Psychological History: No Psychological Hx Reported Smoking Status: Never smoker Past Alcohol Use History: None Reported Past Drug Use History: None Reported
--- NOTE | 2024-01-13 12:38 | P.PN ---
Progress Note - Text Progress Note Date: 01/13/24 HISTORY OF PRESENT ILLNESS: No acute events overnight. Patient has been made DNR. PHYSICAL EXAM: VITAL SIGNS: Reviewed. GENERAL: no acute distress. HEENT: Tracheostomy site clean dry and intact ABDOMEN: Soft. Nondistended. Midline incision with wound VAC in place and intact. J-tube with drainage around site. ASSESSMENT: 1. 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 Status post J-tube placement and revision for small bowel obstruction 2. Abdominal wound dehiscence status post wound VAC placement 3. Status post tracheostomy PLAN: -Continue TPN for nutrition support -Keep J-tube to drainage and hold tube feeds -Wound VAC to be changed Saturday/Saturday/Saturday -No acute surgical intervention planned Dick Ewing DO [facility] [phone]
[2024-01-13] MEDS: CEFTOLOZANE/TAZOBACTAM 3 GM in SODIUM CHLORIDE 0.9% 100 ML IV SCH (17:03)
[2024-01-13 17:12] LABS: Glucose,Whole Blood 190 mg/dL (70-110)
[2024-01-13] MEDS: HYDROmorphone 1 MG/ML 1 ML SYRINGE IVP PRN (19:30)
[2024-01-13] MEDS: 1: MVI, ADULT NO.4 WITH VIT K 10 ML, TRACE (CONC-1ML/DOSE) 1 ML, SODIUM ACETATE 30 MEQ, IV SCH (22:43)
[2024-01-13 23:58] LABS: Glucose,Whole Blood 232 mg/dL (70-110)
[2024-01-14 01:03] LABS: African American GFR (CKD) >90 (>60 ml/min/1.73 sqM); Anion Gap 1 mmol/L; Blood Urea Nitrogen 40 mg/dL (9-20); Calcium 6.7 mg/dL (8.4-10.2); Carbon Dioxide 25 mmol/L (22-30); Chloride 105 mmol/L (98-107); Glucose 255 mg/dL (74-99); Non-African American GFR(CKD) 90 (>60 ml/min/1.73 sqM); Potassium 3.6 mmol/L (3.5-5.1); Sodium 131 mmol/L (137-145)
[2024-01-14] MEDS ORDERED: Potassium Replacement Protocol 1 EACH MISC MISCELLANE PRN (01:09)
[2024-01-14] MEDS: POTASSIUM CHLORIDE 10 MEQ in WATER FOR INJECTION 1 100ML.BAG IVPB SCH (01:46)
[2024-01-14 04:49] LABS: ABG HCO3 27 mmol/L (21-25); ABG Oxygen Saturation 76.9 % (94-97); ABG PCO2 40 mmHg (35-45); ABG PH 7.43 (7.35-7.45); ABG TCO2 28 mmol/L (19-24); Allen Test Performed? Yes
[2024-01-14 04:54] LABS: ABG PO2 43 mmHg (83-108)
[2024-01-14 05:40] LABS: Glucose,Whole Blood 208 mg/dL (70-110)
[2024-01-14 06:07] LABS: African American GFR (CKD) >90 (>60 ml/min/1.73 sqM); Anion Gap 1 mmol/L; Blood Urea Nitrogen 39 mg/dL (9-20); Calcium 6.7 mg/dL (8.4-10.2); Carbon Dioxide 25 mmol/L (22-30); Chloride 104 mmol/L (98-107); Glucose 208 mg/dL (74-99); Magnesium 1.8 mg/dL (1.6-2.3); Non-African American GFR(CKD) >90 (>60 ml/min/1.73 sqM); Phosphorus 3.6 mg/dL (2.5-4.5); Potassium 4.4 mmol/L (3.5-5.1); Sodium 130 mmol/L (137-145)
[2024-01-14 06:08] LABS: Anisocytosis Slight; HCT 25.6 % (39.0-53.0); HGB 8.3 gm/dL (13.0-17.5); MCH 29.4 pg (25.0-35.0); MCHC 32.4 g/dL (31.0-37.0); MCV 90.7 fL (80.0-100.0); Mean Platelet Volume 8.3; Platelet Count 325 k/uL (150-450); RBC 2.82 m/uL (4.30-5.90); RDW 17.8 % (11.5-15.5); WBC 15.3 k/uL (3.8-10.6)
[2024-01-14] MEDS ORDERED: Magnesium Replacement Protocol 1 EACH MISC MISCELLANE PRN (06:27)
[2024-01-14] MEDS: MAGNESIUM SULFATE-D5W PMX 1 GM in DEXTROSE/WATER 1 100ML.BAG IVPB ONE (06:55)
[2024-01-14 07:18] LABS: Band Neutrophils % 1 %; Eosinophils # (M) 0.31 k/uL (0-0.7); Metamyelocytes # (M) 1.22 k/uL (0); Metamyelocytes % 8 %; Monocytes # (M) 0.46 k/uL (0-1.0); Myelocytes # (M) 0.15 k/uL (0); Myelocytes % 1 %; Neutrophils % (M) 72 %; Nucleated Red Blood Cells 0 /100 WBC (0-0); Total Cells Counted 200
--- NOTE | 2024-01-14 11:13 | P.PN ---
Subjective Progress Note Date: 01/14/24 Principal diagnosis: Acute hypoxic respiratory failure requiring intubation mechanical ventilation secondary to aspiration. This is a 73-year-old white male with history of chronic abdominal pain for the last 8 months has been treated with Protonix 40 mg daily for the last 3 months with no improvement. Patient had a 22 pound weight loss in the last [address] of the abdomen and pelvis 3 weeks ago showed thickening of the antral wall with pathological adenopathy posterior to the stomach suspicious of neoplasm. Today the patient underwent elective upper endoscopy to evaluate further, patient received IV sedation by anesthesia endoscope was inserted into the mouth, esop hagus was intubated without any difficulty there was evidence of large amount of liquid and solid food noted in the stomach suggestive of gastric outlet obstruction. Scope could not be advanced through the pylorus, however in the prepyloric area there was a large superficial ulceration identified with multiple biopsies were done from this area. The body cardia and fundus could not adequately visualize because of large amount of retained food in the stomach. Scope was withdrawn back to the stomach and upon careful examination the mucosa of the antrum body and cardia as well as the fundus appeared normal. Procedure was being performed and biopsies were done patient threw up and subsequently became hypoxic there was clearly evidence of witnessed aspiration anesthesia intubated the patient, procedure was terminated, and the patient was transferred to the ICU, this consult was initiated. Patient is now on assist- control rate of 20 tidal volume 500 FiO2 70% PEEP of 10 ABG is pending, earlier ABG showed profound hypoxia patient is on propofol at 50 mcg/kg/min, next ABG is pending. Chest x-ray showed chronic changes without evidence of acute pulmonary disease. 01/10/2024, the patient is on low-dose Precedex. Currently comfortable, sensitive to mechanical ventilator. Output from the pigtail has dropped and the patient continues to have a positive airleak. The chest x-ray shows bilateral consolidation worse on the right and there is a small right apical pneumothorax. Pigtail catheter is in a good location. Blood gas showed a pH of 7.48 with a pCO2 of 35 and a pO2 of 83. He is on assist-control mode with rate of 20, tidal volume of 600, FiO2 30% with a PEEP of 5. RAYA drain output is serosanguineous. TPN is at 90 cc an hour. Fluid balance is -700 cc. The white cell count is at 15.4, hemoglobin is at 6.7 and the patient was given a unit of packed RBC and a platelet count is 188. Electrolytes show a BUN of 46 with a creatinine of 0.7, sodium of 135, potassium level of 3.3. Antibiotics has been modified to a combination of ciprofloxacin and tobramycin as the patient showed quinolone sensitive Pseudomonas in the sputum and in the drain the abscess from the right lung. 01/11/2024, the patient is being seen for a follow-up. Patient is currently on low-dose Precedex at 0.2 mcg/kg/min. Calm and comfortable, no significant coughing. Remains on the mechanical ventilator./On the same vent setting which includes assist-control of 20, tidal volume of 600, FiO2 30% with a PEEP of 5. Chest x-ray shows a right apical pneumothorax, extensive consolidation of the right lung and some limited consolidation in the left and the catheter is in place with purulent output. There is also possibility through the pigtail catheter. Tracheostomy tube is in good location. Remains on tobramycin and ciprofloxacin. The white cell count of 13.6, hemoglobin 8.4 and platelet count is at 208. Blood gas from today showed a pH of 7.48 with a pCO2 of 33 and pO2 of 93. Sodium is at 134, potassium is at 3.7, BUN is 44 with a creatinine of 0.8. LFTs are normal and the patient has an alkaline phosphatase of 233 as the patient continues to receive TPN for nutritional support. Triglyceride levels at 187. Otherwise, no other significant changes condition. Cardiac rhythm remains sinus. The patient is producing adequate amount of urine output. Extremely debilitated, extremely weak, J-tube is not functional and there is leak around the J-tube. The patient was seen again by general surgery and there is no plan to exchange the J-tube. Concern of some leak around the J-tube and based on that an ostomy appliance will be applied around the J-tube. On 01/12/2024, clinically unchanged, remains on Precedex at 0.7 mcg/kg/h. Remains on TPN for nutritional support. Remains on same ventilator settings with assist-control mode rate of 20, tidal volume of 500, FiO2 30% with a PEEP of 5. No blood gases are available from today. Repeat chest x-ray shows stable findings. Stable right apical pneumothorax. Consolidation involving the right lung and the left base remains unchanged. Sputum sample was positive for Pseudomonas aeruginosa and the patient remains on a combination of ciprofloxacin and tobramycin. The patient has positive air leak in his pigtail catheter and total amount of output overnight and over the past 12 hours has been in the order of 80 cc. Extremely debilitated. Extremely weak. Not coherent although arousable. evaluated today on 01/13/2024, remains in the ICU, patient remains intubated and mechanically ventilated, he is on volume control plus with tidal volume of 500 rate 20 FiO2 30% and PEEP of 5 ABG showed a pO2 of 90 pCO2 35 pH of 7.45. No changes were made in ventilator settings. Patient remains on Precedex at 0.8 mcg/kg/h remains on TPN at 90 cc/h patient remains on multiple antibiotics including Cipro fluconazole and tobramycin patient has resistant Pseudomonas in the sputum. Continues to have an air leak in the right-sided chest tube and he has a pigtail catheter in place. Chest x-ray continues showed significant airspace disease bilaterally. Patient is arousable but does not follow any instructions, he is a bit encephalopathic. Family is at bedside, and I had a long discussion with the family regarding his condition and prognosis.WBC count today 6.2 hemoglobin 8.1. Basic metabolic profile is normal renal profile is normal bicarb is 20. Albumin is 1.9. Patient is receiving Dilaudid intermittently for agitation. And that seems to calm down along with Precedex. Patient was seen today on 01/14/2024, patient remains in the ICU, intubated and mechanically ventilated, on volume control plus mode of mechanical ventilation with rate of 20 tidal volume 500 FiO2 30% and PEEP of 5 ABG showed a pO2 of 43 pCO2 of 40 pH of 7.3, however I believe there is an error in the pO2 since his O2 saturation is presently 100%. Patient remains on Precedex, 1.2 mcg/kg/h is also on TPN at 90 cc/h antibiotics were changed he is now on Zerbaxa Cipro and fluconazole. Patient had a -2.8 L over the last 24 hours, today he is awake, follows simple instructions. Remains intubated and mechanically ventilated, and noted to be a bit tachypneic. Patient is not requiring any pressors not requiring any propofol, hemodynamically stable, no chest x-ray was done today, continues to have air leak in the Pleur-evac. WBC is 15.3 hemoglobin 8.3, basic metabolic profile is normal renal profile is normal Objective - Vital Signs Vital signs: Vital Signs Temp 97.7 F 01/14/24 08:00 Pulse 81 01/14/24 11:07 Resp 30 H 01/14/24 10:00 BP 129/90 01/14/24 10:00 Pulse Ox 97 01/14/24 10:00 FiO2 30 01/14/24 11:07 Intake & Output 01/13/24 01/14/24 01/14/24 18:59 06:59 18:59 Intake Total 194.197 2309.620 305 Output Total 3825 1575 475 Balance -3241.227 436.620 -170 Weight 104.5 kg 98.3 kg Intake: IV 205 1717.5 205 0.9 Normal Saline @ KVO 5 27.5 15 Ceftolozane/Tazobactam 3 100 gm In Sodium Chloride 0.9 % 100 ml @ 100 mls/hr IV Q8HR [facility] Rx#:[id number] Ciprofloxacin/Dextrose 200 400 Pmx 400 mg In Dextrose/ Water 1 200ml.bag @ 200 mls/hr IVPB Q8H [facility] Rx#: [id number] Magnesium Sulfate-D5w Pmx 100 1 gm In Dextrose/Water 1 100ml.bag @ 100 mls/hr IVPB ONCE ONE Rx#: [id number] Potassium Chloride 10 meq 200 In Water For Injection 1 100ml.bag @ 100 mls/hr IVPB Q1H [facility] Rx#: [id number] TPN 990 90 Intake, IV Titration 288.773 294.120 100 Amount Dexmedetomidine/0.9% NaCl 288.773 294.120 100 (Pmx) 400 mcg In Empty Bag 1 bag @ 0.2 MCG/KG/HR 5.2 mls/hr IV .[id number] [facility] Rx#:[id number] TPN/PPN 90 TPN 90 Output: Chest Tube Drainage 20 0 Chest Tube Right 20 0 Drainage 105 0 Medial Abdomen 0 Right Abdomen 105 0 Urine 3825 1450 475 Other: Voiding Method Indwelling Catheter Indwelling Catheter ABP, PAP, CO, CI - Last Documented Arterial Blood Pressure 173/76 - Exam General: Revealed 73-year-old white male on mechanical ventilation, on Precedex, Skin: Skin is warm and dry and no rashes or lesions are noted. Eye: Pupils are equal, round and reactive to light, extra-ocular movements are intact; there is normal conjunctiva bilaterally. Ears, nose, mouth and throat: There are moist mucous membranes and no oral lesions. Neck: The neck is supple, there is no tenderness or JVD. Tracheostomy is intact. Cardiovascular: There is a regular rate and rhythm. No murmur, rub or gallop is appreciated. Respiratory: Crackles at the bases, no rhonchi no wheezes, right-sided pigtail catheter is noted, evidence of air leak noted. Gastrointestinal: no rebound, no guarding, no bowel sounds, wound VAC is noted jejunostomy tube is noted, surgery is considering removing the jejunostomy tube altogether. Musculoskeletal: No deformities and no limitation range of motion other the patient seems to be generally weak. Neurological: Patient is awake ,generally weak, follows simple instructions today like squeezing hands and wiggling toes. Extremities: 1 trace of bipedal edema - Labs CBC & Chem 7: 01/14/24 05:45 01/14/24 05:45 Labs: Abnormal Lab Results - Last 24 Hours (Table) 01/13/24 01/13/24 01/13/24 Range/Units 11:20 17:09 23:56 WBC (3.8-10.6) k/uL RBC (4.30-5.90) m/uL Hgb (13.0-17.5) gm/dL Hct (39.0-53.0) % RDW (11.5-15.5) % Neutrophils # (Manual) (1.3-7.7) k/uL Metamyelocytes # (Man) (0) k/uL Myelocytes # (Manual) (0) k/uL ABG pO2 (83-108) mmHg ABG HCO3 (21-25) mmol/L ABG Total CO2 (19-24) mmol/L ABG O2 Saturation (94-97) % Hemoglobin (13.0-17.5) gm/dL Sodium (137-145) mmol/L BUN (9-20) mg/dL Glucose (74-99) mg/dL POC Glucose (mg/dL) 183 H 190 H 232 H (70-110) mg/dL Calcium (8.4-10.2) mg/dL 01/14/24 01/14/24 01/14/24 Range/Units 00:40 04:41 05:39 WBC (3.8-10.6) k/uL RBC (4.30-5.90) m/uL Hgb (13.0-17.5) gm/dL Hct (39.0-53.0) % RDW (11.5-15.5) % Neutrophils # (Manual) (1.3-7.7) k/uL Metamyelocytes # (Man) (0) k/uL Myelocytes # (Manual) (0) k/uL ABG pO2 43 L* (83-108) mmHg ABG HCO3 27 H (21-25) mmol/L ABG Total CO2 28 H (19-24) mmol/L ABG O2 Saturation 76.9 L (94-97) % Hemoglobin 8.3 L (13.0-17.5) gm/dL Sodium 131 L (137-145) mmol/L BUN 40 H (9-20) mg/dL Glucose 255 H (74-99) mg/dL POC Glucose (mg/dL) 208 H (70-110) mg/dL Calcium 6.7 L (8.4-10.2) mg/dL 01/14/24 01/14/24 Range/Units 05:45 05:45 WBC 15.3 H (3.8-10.6) k/uL RBC 2.82 L (4.30-5.90) m/uL Hgb 8.3 L (13.0-17.5) gm/dL Hct 25.6 L (39.0-53.0) % RDW 17.8 H (11.5-15.5) % Neutrophils # (Manual) 11.10 H (1.3-7.7) k/uL Metamyelocytes # (Man) 1.22 H (0) k/uL Myelocytes # (Manual) 0.15 H (0) k/uL ABG pO2 (83-108) mmHg ABG HCO3 (21-25) mmol/L ABG Total CO2 (19-24) mmol/L ABG O2 Saturation (94-97) % Hemoglobin (13.0-17.5) gm/dL Sodium 130 L (137-145) mmol/L BUN 39 H (9-20) mg/dL Glucose 208 H (74-99) mg/dL POC Glucose (mg/dL) (70-110) mg/dL Calcium 6.7 L (8.4-10.2) mg/dL Assessment and Plan Assessment: Impression: Acute hypoxic respiratory failure requiring intubation mechanical ventilation secondary to aspiration. Status post tracheostomy on 12/10/2023 The patient has bilateral pneumonia with a cavitary infiltrate in the right upper lobe, secondary to Pseudomonas aeruginosa and Citrobacter and the patient is currently on a combination of ciprofloxacin, fluconazole, and tobramycin CAT scan of the chest done on 12/17/2023 was reviewed and the patient has a cavitating cyst/abscess in the posterior aspect of the right upper lobe in addition to patchy opacities bilaterally right more than left consistent with pneumonia,/gram-negative pneumonia. The patient had a pigtail catheter inserted with drainage of the right lung abscess. The bronchial washing is positive for Pseudomonas aeruginosa, quinolone sensitive and the cultures from the pigtail catheter/lung abscess was also positive for Pseudomonas aeruginosa.. Status post J-tube placement 11/16/2023, multiple complications since then related to the J-tube placement requiring multiple surgeries. Ongoing leak around the J-tube, improving still cannot use the J-tube for feeding Persistent right apical pneumothorax with persistent air leak noted in the p igtail catheter Acute peritonitis secondary to above, secondary to small bowel perforation with abdominal contamination Septic shock secondary to above Paroxysmal atrial fibrillation Acute kidney injury requiring hemodialysis secondary to sepsis and septic shock, last hemodialysis was on the , apparently patient is not requiring hemodialysis since then and nephrology planning to discontinue his dialysis catheter from the left groin Weight loss secondary to non-Hodgkin's lymphoma Acute aspiration pneumonia/right upper lobe lung abscess Acute aspiration during upper endoscopy most likely secondary to gastric outlet obstruction secondary to non-Hodgkin's lymphoma based on the pathology from stomach biopsies 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 Critical illness polyneuropathy Metabolic encephalopathy Malfunctioning of the J-tube Recommendation: Discussed condition with family today, seems to be open to consider hospice evaluation. And will go ahead and consult hospice today. Continue ventilatory support Continue antibiotics and antifungal therapy Continue Dilaudid and Precedex Continue nutritional support/TPN Close monitoring of daily labs, and monitor daily x-rays of the chest Continue GI and DVT prophylaxis Remains critically ill General Surgery still following regarding his malfunctioning J-tube and wound VAC. Hospice consultation was initiated mostly because of the patient's overall poor picture and failure to thrive. Critical care time is over 30 Will continue to follow Time with Patient: Greater than 30
[2024-01-14 12:55] LABS: Glucose,Whole Blood 220 mg/dL (70-110)
--- NOTE | 2024-01-14 14:18 | P.PN ---
Subjective Progress Note Date: 01/14/24 Principal diagnosis: Reason for follow-up is pneumonia and bacteremia Patient is 73-year-old with male initial presentation to the hospital on 11/11/2021 for after the patient did have aspiration while undergoing elective endoscopy, diagnosed with a non-Hodgkin of, subsequently did have explained laparotomy for perforated small bowel abdominal washout and feeding jejunostomy tube patient did require dialysis catheter placement for dialysis during this hospital stay and tracheostomy for respiratory failure, infectious was consulted for fever. On today's evaluation that is 01/14/2024,the patient remains to be afebrile, patient is on ventilator through the trach FiO2 is currently stable, patient is hemodynamically stable not requiring any pressor support no diarrhea or any other changes reported by the nursing staff. Patient white count is 15.3 creatinine 0.77 Objective - Vital Signs Vital signs: Vital Signs Temp 97.7 F 01/14/24 08:00 Pulse 83 01/14/24 10:00 Resp 30 H 01/14/24 10:00 BP 129/90 01/14/24 10:00 Pulse Ox 97 01/14/24 10:00 FiO2 30 01/14/24 08:00 Intake & Output 01/13/24 01/14/24 01/14/24 18:59 06:59 18:59 Intake Total 141.741 9956.620 305 Output Total 3825 1575 475 Balance -3241.227 436.620 -170 Weight 104.5 kg 98.3 kg Intake: IV 205 1717.5 205 0.9 Normal Saline @ KVO 5 27.5 15 Ceftolozane/Tazobactam 3 100 gm In Sodium Chloride 0.9 % 100 ml @ 100 mls/hr IV Q8HR [facility] Rx#:[id number] Ciprofloxacin/Dextrose 200 400 Pmx 400 mg In Dextrose/ Water 1 200ml.bag @ 200 mls/hr IVPB Q8H [facility] Rx#: [id number] Magnesium Sulfate-D5w Pmx 100 1 gm In Dextrose/Water 1 100ml.bag @ 100 mls/hr IVPB ONCE ONE Rx#: [id number] Potassium Chloride 10 meq 200 In Water For Injection 1 100ml.bag @ 100 mls/hr IVPB Q1H [facility] Rx#: [id number] TPN 990 90 Intake, IV Titration 288.773 294.120 100 Amount Dexmedetomidine/0.9% NaCl 288.773 294.120 100 (Pmx) 400 mcg In Empty Bag 1 bag @ 0.2 MCG/KG/HR 5.2 mls/hr IV .[id number] [facility] Rx#:[id number] TPN/PPN 90 TPN 90 Output: Chest Tube Drainage 20 0 Chest Tube Right 20 0 Drainage 105 0 Medial Abdomen 0 Right Abdomen 105 0 Urine 3825 1450 475 Other: Voiding Method Indwelling Catheter Indwelling Catheter ABP, PAP, CO, CI - Last Documented Arterial Blood Pressure 173/76 - Labs CBC & Chem 7: 01/14/24 05:45 01/14/24 05:45 Labs: Abnormal Lab Results - Last 24 Hours (Table) 01/13/24 01/13/24 01/13/24 Range/Units 11:20 17:09 23:56 WBC (3.8-10.6) k/uL RBC (4.30-5.90) m/uL Hgb (13.0-17.5) gm/dL Hct (39.0-53.0) % RDW (11.5-15.5) % Neutrophils # (Manual) (1.3-7.7) k/uL Metamyelocytes # (Man) (0) k/uL Myelocytes # (Manual) (0) k/uL ABG pO2 (83-108) mmHg ABG HCO3 (21-25) mmol/L ABG Total CO2 (19-24) mmol/L ABG O2 Saturation (94-97) % Hemoglobin (13.0-17.5) gm/dL Sodium (137-145) mmol/L BUN (9-20) mg/dL Glucose (74-99) mg/dL POC Glucose (mg/dL) 183 H 190 H 232 H (70-110) mg/dL Calcium (8.4-10.2) mg/dL 01/14/24 01/14/24 01/14/24 Range/Units 00:40 04:41 05:39 WBC (3.8-10.6) k/uL RBC (4.30-5.90) m/uL Hgb (13.0-17.5) gm/dL Hct (39.0-53.0) % RDW (11.5-15.5) % Neutrophils # (Manual) (1.3-7.7) k/uL Metamyelocytes # (Man) (0) k/uL Myelocytes # (Manual) (0) k/uL ABG pO2 43 L* (83-108) mmHg ABG HCO3 27 H (21-25) mmol/L ABG Total CO2 28 H (19-24) mmol/L ABG O2 Saturation 76.9 L (94-97) % Hemoglobin 8.3 L (13.0-17.5) gm/dL Sodium 131 L (137-145) mmol/L BUN 40 H (9-20) mg/dL Glucose 255 H (74-99) mg/dL POC Glucose (mg/dL) 208 H (70-110) mg/dL Calcium 6.7 L (8.4-10.2) mg/dL 01/14/24 01/14/24 Range/Units 05:45 05:45 WBC 15.3 H (3.8-10.6) k/uL RBC 2.82 L (4.30-5.90) m/uL Hgb 8.3 L (13.0-17.5) gm/dL Hct 25.6 L (39.0-53.0) % RDW 17.8 H (11.5-15.5) % Neutrophils # (Manual) 11.10 H (1.3-7.7) k/uL Metamyelocytes # (Man) 1.22 H (0) k/uL Myelocytes # (Manual) 0.15 H (0) k/uL ABG pO2 (83-108) mmHg ABG HCO3 (21-25) mmol/L ABG Total CO2 (19-24) mmol/L ABG O2 Saturation (94-97) % Hemoglobin (13.0-17.5) gm/dL Sodium 130 L (137-145) mmol/L BUN 39 H (9-20) mg/dL Glucose 208 H (74-99) mg/dL POC Glucose (mg/dL) (70-110) mg/dL Calcium 6.7 L (8.4-10.2) mg/dL Assessment and Plan (1) Sepsis Current Visit: Yes Status: Acute Code(s): A41.9 - SEPSIS, UNSPECIFIED ORGANISM SNOMED Code(s): 69187510 (2) Pneumonia Current Visit: Yes Status: Acute Code(s): J18.9 - PNEUMONIA, UNSPECIFIED ORGANISM SNOMED Code(s): 121808860 (3) Bacteremia Current Visit: Yes Status: Acute Code(s): R78.81 - BACTEREMIA SNOMED Code(s): 4152003 Plan: 1patient with complicated pneumonia and lung abscess on the CT status post drainage catheter placement by interventional radiology subsequently did have purulent pleural fluid which has been cultured did have a chest tube and is growing Pseudomonas with slightly different sensitivity from the sputum Pseudomonas aeruginosa. 2-patient also have evidence of retro vesicular abscess on the CT abdominal pelvis, this has been discussed with the surgical team on the case in person however mention patient would not be able to tolerate any further surgery. 3patient pleural fluid cultures are growing Pseudomonas aeruginosa that is sensitive to Zerbaxa as well as tobramycin and Cipro and also growing Alejandra albicans 4patient is currently on Cipro, Diflucan along with Zerbaxa to which the organism from the pleural fluid is sensitive Admitting team is discussing with the patient family about possible hospice which may be appropriate at that point antibiotics can be safely discontinued Dictation was produced using [employer] dictation software. please excuse any grammatical, word or spelling errors.
--- NOTE | 2024-01-14 14:37 | P.PN ---
Progress Note - Text Progress Note Date: 01/14/24 Chief Complaint: On the ventilator This is a 73-year-old patient, follows with Dr. Patricia Deal. Patient was seen this morning in the ICU. Patient's and daughter at the bedside. History obtained predominantly by the . Patient been having trouble with his stomach symptoms for close to 8 months. Patient underwent EGD by Dr. Sahara Cheng yesterday. Patient was found to have ulcerated around the antrum and obstruction to the pylorus. A lot of retained food was found. Patient aspirated. Had to be intubated and brought to the ICU. On a Levophed drip. FiO2 50 and a PEEP of 6. Patient had been losing weight lost about 25 pounds. Previously has a history of mitral valve prolapse. November 13: ICU. Patient remains on Precedex drip and propofol drip. Did not do well attempted extubation yesterday. Patient been off Levophed. NG tube to suction. Spoke to patient's and son at the bedside. Biopsy results awaited. Hemoglobin dropped to 6.9 this morning. Get a unit of blood. November 14: ICU. Up in a chair. Extubated yesterday. NG tube to suction. at the bedside. 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 Oncology was consulted. They have ordered a port. Results discussed with Dr. Sahara Cheng. General surgery was consulted for J-tube placement. Discussed with at the bedside. Patient getting IV fluids, IV Zosyn,. Patient has been on IV amiodarone for A-fib-back in sinus rhythm. Multiple PACs. Did receive unit of blood yesterday. Also IV ferric gluconate. November 15: ICU. Patient earlier today underwent jejunostomy tube placement and a port placement. Patient awake. Answering questions. NG tube to suction present. Updated patient's . Patient remains on IV amiodarone and IV Zosyn. November 16: ICU. Up in the chair. NG tube present but not to suction. Trickle feeding through the jejunostomy tube should be started today. Dietitian has been on board. IV Zosyn to continue. Patient's and his sister at the bedside. Discussed. Also spoke with Dr. Serna. Given patient has no other predisposing cardiac factors for the A-fib except acute illness. His LV function is normal. Left atrium is normal. He has already been loaded with IV amiodarone. Will switch him to oral Lopressor 12.5 twice daily. Hence will DC amiodarone. Patient yesterday had wheezing was put on bronchodilators steroids per pulmonary. November 17: Propped up in bed. NG tube was discontinued. Sinus rhythm. Remains NPO. Getting G-tube feeding at 40 cc an hour. Dietitian following. Get arrangements done for DC home tomorrow including tube feeding. Increase activity discussed with patient and elder daughter at the bedside. Still requiring oxygen. Incentive spirometry. November 18: Patient up in recliner. Earlier today spoke to social worker palliative care David. Informed patient is rather weak and will be going to the [facility]. Looking at authorization. Denae came to the room and spoke to patient his and his daughter. They are very keen to take the patient home as 3 daughters all nurses and they will take care of him at home. Patient earlier today to abdominal cramping and some loose stools.'s tube feeding was held. Told the nurse to start back at the rate of 40 cc an hour. He was before the getting it at 55 cc an hour. Incentive spirometry was again emphasized. Patient remains on 4 L of oxygen. November 19: I saw the patient this morning. Hence I am in the evening. Morning was sitting with his sons. Has some edema. Lungs had crackles I gave him 40 mg of Lasix. He did make good urine. Tube feeding was held from the p revious evening of because of abdominal cramping. Acute abdominal series showed nonspecific bowel gas pattern and SBO to be ruled out. Family and patient was updated. Told him discharge will depend on day by day. Later this afternoon CT scanAnd abdomen pelvis done. Showed small bowel to be 3 point centimeter dilated. Some anasarca. Gastric findings. Gallstones. Later spoke to Dr. Irby from general surgery. They will further review and decide about further plan of action. Will give further dose of IV Lasix because of fluid overload from likely hypoalbuminemia and IV fluids previously received. Patient may take his pills by mouth. Total time spent today about 1 hour with over 40 minutes of discussion. Patient did state his breathing is better after Lasix this morning. November 20: Saw the patient this morning. was present. Patient received 2 more doses of Lasix. Diuresed well. Breathing much better. Lungs are sounding better. Discussed with Dr. Zepeda other surgeon. He is taking 3 cc out of the balloon and the gastrostomy tube. Started trickle feeding at 5 cc an hour. Will see how this does. Later in the day ran into the and the daughter again. Did update them on the same. Dilaudid was discontinued yesterday but morphine was ordered by surgery for patient having pain. Concerns about GI issues with that we will DC the morphine. As family does not want the same. November 21: Patient reclining bed. Tired. Several family members at the bedside. Including his and eldest daughter. Patient started on trickle feed yesterday at 5 cc an hour. This morning he has been on 10 cc an hour. Still having some loose stools. C. difficile was ordered. Patient on 2 L of nasal cannula. Has diuresed well. Will give an additional dose of Lasix today. If C. difficile is negative and the diarrhea is from the tube feedings we may have to use a fecal management system to keep him comfortable. Otherwise patient remains NPO. Dietitian is following the patient. Care was discussed length with patient the and daughter at the bedside. Questions answered. Liquid Tylenol has been added for abdominal pain. Avoid narcotics. Elevated white count likely from Solu-Medrol 11/23/2023--patient was feeling better today. Multiple family member at bedside. No issues overnight. Normal saline at 10 cc an hour, tube feeding at 20 cc an hour, remains on Zosyn, on 3 L oxygen. Afebrile. Heart rate 62, respiratory rate 16, blood pressure 114/67, saturating 91% on 3 L. WBCs 14.5, 9.7 hemoglobin. Platelet 242. BMP is unremarkable. Pulmonary and general surgery following. General surgery recommended to continue tube feeds at 20 cc/h. 11/24/2023--patient reported significant abdominal discomfort, also noted to have leak around G-tube. General surgery is following, evaluated the patient at bedside, adjusted tube feeds. Also reported having diarrhea, on 2 L oxygen, went up to 5 L. Blood pressure was low, 500 mL fluid bolus with close monitoring of respiratory status ordered. Currently on DuoNebs, Solu-Medrol, will continue Zosyn. Chest x-ray showed a left lower lobe infiltrate. Abdominal x-ray showed multiple air-fluid levels. CT abdomen showed multiple dilated small bowel loops, consistent with obstruction, pneumoperitoneum, cholelithiasis and ascites. WBCs 14.1, platelet 255, hemoglobin 8.9. NG tube in place. Family at bedside. patient transferred to SICU for close monitoring. 11/25/23--patient is currently in the ICU, required Levophed overnight due to low blood pressure, low urine output with creatinine trending up. Nephrology following. Foster Care Worker also following. Patient remains n.p.o., NG tube in place, following NG tube insertion patient had total of 2 L output, J-tube was draining approximately 200 cc over last 8 hours, continues to have abdominal pain and abdominal tenderness. Patient on IV fluids. Currently on 4 L oxygen. WBCs 8.2, hemoglobin 12.3, platelet 188. Chest x-ray earlier today showed right sided port and a stable left lung airspace disease, NG tube in place. Patient currently on Zosyn, on IV Dilaudid for pain control, on IV Solu-Medrol. General surgery planning for OR today, started on TPN. 11/26/23--patient was seen and examined today. Patient is currently sedated, intubated on mechanical ventilation. Family at bedside. Patient underwent ex lap, abdominal washout, small bowel resection with new feeding jejunostomy tube placement yesterday, small bowel was noted to be perforated with significant contamination of abdominal cavity. Patient is currently on vancomycin and Zosyn. Creatinine went up to 2.85, nephrology following, recommended to continue IV fluids, avoid nephrotoxin Preserved EF on echocardiogram.. Patient currently on Levophed, vasopressin in the ICU for close monitoring. Patient is afebrile, heart rate 122, blood pressure 129/76, currently on mechanical ventilation, sedated. November 26: ICU. Intubated. FiO2 60 and a PEEP of 5. Drips include IV amiodarone. Heart rate was up early did get fired microgram of IV digoxin and 2.5 mg of IV Lopressor. Did drop her blood pressure bit. Urine output was low. Received 80 mg of IV Lasix. Ahmet to 150 cc. Other drips include IV propofol, vasopressin, Levophed. TPN was started yesterday. Antibiotics include IV Zosyn and vancomycin. Patient has a J-tube to drainage to gravity. Spoke to patient's younger daughter and at the bedside. Prognosis guarded. Continue current treatment plan. Chest x-ray shows right lower lobe consolidation. Small pleural effusion. November 27: ICU. Intubated. FiO2 55 and a PEEP of 5. Antibiotics include IV vancomycin. Drips include Levophed at a small dose, IV vasopressin, propofol, amiodarone. Patient converted to sinus rhythm this morning. Getting TPN and normal saline at 75 cc an hour. Urine output about 25 cc an hour. RAYA drain put out about 260 cc last 12 hours that is last pantograph engraver. NG tube with bilious output. And also GI J-tube output to gravity. Spoke to patient's and daughter at the bedside. They understand patient still not out of the kee. Platelets have dropped-therefore probably Zosyn stopped. November 28: ICU. Intubated. FiO2 55 and a PEEP of 5. Patient is in sinus rhythm. Seen this morning. Due for dialysis catheter this afternoon. Urine output about 15 to 20 cc an hour. Patient is on IV Lasix 80 mg every 12. Saline is KVO. Drips include IV propofol vasopressin. Patient having significant output through the RAYA drain and the jejunostomy tube to drainage. Creatinine had been getting worse. Patient's at the bedside. Understands patient's remains critically ill. Hemoglobin is down to 7. Given that patient's pain hypotensive, and on vasopressin we will give a unit of blood with dialysis. Getting TPN antibiotic changed to IV meropenem November 29: ICU. Intubated. FiO2 55 and a PEEP of 5. Remains in sinus rhythm. Getting TPN. Dialyzed yesterday and this morning. About 1000 cc removed. Urine output about 50 cc an hour. Patient is on IV propofol. Off vasopressin. Still having significant output through the RAYA drain and jejunostomy tube. Patient received a second unit of blood yesterday. Patient's and daughter at the bedside. I did discuss guarded prognosis. Did asked them to revisit CODE STATUS.. Getting IV meropenem. November 30: ICU. Intubated. Did get a sedation holiday t today. Back on propofol. Getting TPN. Still getting IV Lasix. Fair urine output. Jejunostomy tube in last 8 hours was about 30 cc output. RAYA drain in the 8 hours had about 180 cc output. Telemetry shows sinus rhythm. NG tube has low intermittent suction with negative output. On the vent with FiO2 40 and a PEEP of 5. No hemodialysis today. Discussed with the and eldest daughter at the bedside. IV meropenem-patient's sputum had grown Citrobacter freundii and Pseudomonas aeruginosa. December 01: ICU. Intubated. Jejunostomy tube to gravity. Only 10 cc output in last 24 hours. RAYA drain. About 190 cc last 6 hours. Nasogastric tube to low intermittent suction. Minimal output. Patient is on a small dose of propofol 5 mics. Telemetry shows sinus rhythm. Patient started on small dose of Cleviprex this morning. Blood pressure. Getting TPN. FiO2 35 and PEEP of 5. Discussed with the at the bedside. Hemodialysis today December 02: ICU. Patient remains intubated. FiO2 35 PEEP of 5. Patient is on IV propofol. IV Cleviprex was discontinued yesterday. Also remains on TPN. Telemetry shows sinus rhythm. NG tube is good no output. Still significant output through the RAYA drain. Jejunostomy tube has minimal output. Patient had hemodialysis today 2 L of fluid was removed. Oral half liters yesterday. Patient getting a sedation holiday. General Surgery started the patient on trickle feeding at 10 cc an hour. I did speak to patient's at the bedside. Prognosis remains guarded but there is some improvement. December 03: ICU. Intubated. FiO2 35 PEEP of 5. Drips include IV propofol and Precedex. Getting TPN. Telemetry shows sinus rhythm. Remains on IV Lasix 80 mg twice a day. IV meropenem. Because patient gets easily agitated when transitioning off propofol he has been switched over to Precedex. For hemodialysis today. December 04: ICU. Intubated. FiO2 35 and a PEEP of 5. Patient been taken off propofol is on Precedex. Telemetry sinus rhythm. J-tube with minimal output. RAYA drain with decreased output. NG tube to suction minimal output. Family wanted to hold off trickle feeding until cleared by oncology. Which he did today. Trickle feeding will be started today. Spoke to patient's and one of the daughters at the bedside. Dr. Russ is spoken to the earlier this point they want to do further tracheostomy tube. October 4: ICU. Intubated. FiO2 35 PEEP of 5. Patient remains on Precedex and PPN. Patient's dialysis catheter was not functioning is getting another [address] Bobby this afternoon. Remains on IV meropenem. Has a RAYA drain in the jejunostomy tube to gravity. NG tube to low intermittent suction. No family at the bedside. December 06: ICU. Intubated. FiO2 35 PEEP of 5. RAYA drain putting out about approximately 120 cc per shift. Patient on IV Precedex. FiO2 35 PEEP of 5. Telemetry-sinus rhythm. Patient occasionally been put on small dose of Levophed specially for hemodialysis getting it today. Also started on midodrine for low blood pressure. Tolerating tube feeding at 10 cc an hour. Also had a bowel movement. Mentation has not improved. Even with sedation holiday. Neurology consulted. CT brain shows no acute process. December 07: ICU. Intubated. FiO2 35 PEEP of 5. Telemetry-sinus rhythm. NG tube to suction low intermittent minimal output. Getting TPN. Tube feeding at 20 cc an hour. RAYA drain averaging over 100 cc per shift. Remains on Precedex. EEG was done today. Discussed with at the bedside. Family is currently not inclined for tracheostomy tube today. Day 13 of being intubated December 08: ICU. Intubated. FiO2 35 PEEP of 5. Patient is put on back on propofol per senior cyber intelligence analyst Dr. JIMENEZ. EEG did show some potential for spikes was put on Keppra by neurology. Telemetry shows sinus rhythm. NG tube to suction with no output. Tube feeding was put on hold because of questionable discharge on the site. Being restarted today. RAYA drain is 150 cc last 12-hour shift. Patient does open eyes. Family has decided to proceed with tracheostomy and surgery has been consulted for the same. Spoke to the at the bedside. For hemodialysis today. December 09: ICU. Intubated FiO2 35 PEEP of 5. Patient seen this morning. Pending tracheostomy placement this afternoon. Remains NPO. G-tube feeding was held overnight. RAYA drain putting out about 100 cc per shift. Received a unit of blood for hemoglobin of 6.6. On 25 mics of propofol. Getting TPN and meropenem. Spoke to the at the bedside. Patient became hypotensive with dialysis yesterday. Levophed had to be given. Only 800 cc were removed yesterday. No hemodialysis today. December 10: ICU . FiO2 35, PEEP 5. Tracheostomy was done yesterday by Dr. Ewing. G-tube feeding was started today at 10 cc an hour. Dietitian following. RAYA drain 12-hour shift overnight put out about 30 cc. Patient hemodialysis today about 1 L removed. Patient has a sacral stage II decub with a dressing. On propofol 20 mics. Spoke to at the bedside. TPN. Meropenem was discontinued yesterday. December 11: ICU. FiO2 35 PEEP of 5. Tracheostomy. NG tube was discontinued. No hemodialysis today. Telemetry shows sinus rhythm. J-tube feeding at 40 cc an hour. TPN was discontinued. Patient has been off propofol also. PICC line in place. Patient had a EEG done today. Spoke to patient's elder daughter at the bedside. May open eyes occasionally. Not really following commands December 12: 73-year-old white male with history of chronic abdominal pain for the last 8 months has been treated with Protonix 40 mg daily for the last 3 months with no improvement. Patient had a 22 pound weight loss in the last [address] of the abdomen and pelvis 3 weeks ago showed thickening of the antral wall with pathological adenopathy posterior to the stomach suspicious of neoplasm. Today the patient underwent elective upper endoscopy to evaluate further, patient received IV sedation by anesthesia endoscope was inserted into the mouth, esophagus was intubated without any difficulty there was evidence of large amount of liquid and solid food noted in the stomach suggestive of gastric outlet obstruction. Scope could not be advanced through the pylorus, however in the prepyloric area there was a large superficial ulceration identified with multiple biopsies were done from this area. The body cardia and fundus could not adequately visualize because of large amount of retained food in the s tomach. Scope was withdrawn back to the stomach and upon careful examination the mucosa of the antrum body and cardia as well as the fundus appeared normal. Procedure was being performed and biopsies were done patient threw up and subsequently became hypoxic there was clearly evidence of witnessed aspiration anesthesia intubated the patient, procedure was terminated, and the patient was transferred to the ICU, this consult was initiated. Patient is now on assist- control rate of 20 tidal volume 500 FiO2 70% PEEP of 10 ABG is pending, earlier ABG showed profound hypoxia patient is on propofol at 50 mcg/kg/min, next ABG is pending. Chest x-ray showed chronic changes without evidence of acute pulmonary disease. 12/14/2023 Patient remains in the ICU, generally weak Patient s/p tracheostomy G-tube in place Patient still has fever and mild tachycardia but tachycardia is improving, leukocytosis improving as well. Hemoglobin 8.1. Creatinine 3.0 and nephrology team on the case. He has mild transaminitis. He was getting Zosyn which is held now, nowCalcitonin is pending 12/14 Patient shon in the ICU, he is still encephalopathic and does not follow command. Neurology service following closely. He is status post tracheostomy. Also J-tube His abdomen looks soft and on exam he has mild coarse secretions. Has a Abarca catheter with clear urine His pro- Calcitonin is still high but trending down 3.0 down to 1.9 No fever this morning WBC slightly less at 16.3 Patient currently off antibiotic He is getting steroids IV Solu-Medrol which might contribute to his leukocytosis. Also he is on IV Keppra by neurologist 12/14 Patient remains confused in the ICU calm, he had a good night per family member and staff. Tracheostomy in place Patient has occasional coughing spells, patient also developed some partial wound dehiscence in his abdomen, surgery team are aware and are going to evaluate the patient Patient also has positive blood culture from 12/13: Gram-positive cocci in clusters. Patient received one-time dose of IV vancomycin. Patient also had fever 2 days ago, leukocytosis and total elevated pro- Calcitonin. Therefore we are going to consult infectious disease team. As his antibiotic Zosyn was stopped few days ago. Currently patient KVO He has good urine output December 16: ICU. Trach. Congested. Requiring suctioning. No hemodialysis today. Getting G-tube feeding at 50 cc an hour. FiO2 30 and a PEEP of 5. On IV Precedex. Eyes open. Does follow commands. Weakness in the limbs. Spoke to at the bedside. Sputum positive for Klebsiella oxytoca and Pseudomonas aeruginosa. December 17: ICU. On trach. Currently cough with increased secretions requiring suctioning. Adding scopolamine patch. Very much clear secretion. CT scan is showing right upper lobe lung abscess. G-tube feeding at 50 cc an hour. Hemodialysis today. RAYA drain putting out about 140 cc a shift. Serous. Has been midline incision wound dehiscence. Wound VAC was placed on it. Stage II ulcer. Patient is on Precedex drip 0.15 mics. Urine output is good about 6200 cc an hour. Spoke to the at the bedside. Patient currently not stable for transfer to LTAC. No limb movements. PT OT on the case. otherwise awake does follow simple commands by face December 18: ICU. Patient seen this afternoon. Because of pain getting IV Dilaudid. No nasal cannula on room air. Does move about his head. Telemetry shows sinus rhythm. FiO2 30 and a PEEP of 5. Patient started on scopolamine patch yesterday has decreased secretions today. Good urine output. Tube feeding at 60 cc an hour. Wound VAC on incisional would be high since in place. RAYA drain continues to make output. No hemodialysis today December 19: ICU. Patient was seen earlier today. FiO2 30 and a PEEP of 5. Sinus rhythm. Awake. Does follow with eyes. Tube feeding got obstructed tube feedings held for now. Increasing oozing from the incision drainage site. at the bedside. Wound VAC remains in place. Good urine output. Dialysis held today. December 20: ICU. Per nephrology no dialysis today. 1 L fluid bolus given. J- tube was replaced over the wire by Dr. Ewing from surgery. On Precedex 0.6 mcg. FiO2 30 and a PEEP of 5 on the vent. RAYA drain putting out of around 100 cc per shift. at the bedside. Drainage through the abdominal incision wound. CT scan abdomen showed tube placement in the small bowel. Stable large right lower quadrant mass with a fluid level. December 21: ICU. No dialysis today. Patient started on trickle feeding through the J-tube yesterday. He started leaking around the J-tube site. Tube feeding was held. Dressings were placed. Wound VAC remains on the incision. Still having output through the RAYA drain. Patient remains on Precedex 0.4 mcg. FiO2 30 and a PEEP of 5. Sinus rhythm. at the bedside. December 22: ICU. Patient was seen this morning today by me. No dialysis today. Patient's and daughter at the bedside. FiO2 30 and a PEEP of 5. Sinus rhythm. Still having significant secretions through the tracheostomy tube. On Precedex 0.4 mcg. Getting D5W IV fluids. Tube feeding remains to be on hold since yesterday. Still output of RAYA drain. Awaiting input from surgery. Discussed with the and daughter. December 23: ICU. Saw the patient this afternoon. Because of good output of urine dialysis has been discontinued. Telemetry shows sinus rhythm. FiO2 30 and a PEEP of 5. RAYA output has been around 8200 cc an hour. Good urine output. Patient does have very slight movement of the limbs. Wound VAC is putting out about 20 cc per shift. Yesterday when trickle feeding was started patient's J- tube drainage also started leaking around the insertion site. Tube feeding was held. Patient remains on IV Zosyn and Precedex at 0.3 mcg. I had a very lengthy discussion with patient's daughter and at the bedside overall guarded prognosis. Later surgery spoke to the family, and then the nurse called me that family was wanting transferred to [facility]. I spoke to Dr. Irby. They felt they could not offer anything more at this point. I did call the [facility] transfer steam fitter supervisor. Gave them the reason for transfer. Later in the ICU nurse informed me through [employer] that [facility] had declined the transfer. Total time spent today about 50 minutes with over 30 minutes of discussion. December 24: ICU. Patient is doing not too well. Sinus rhythm. Drips include norepinephrine and IV propofol. Surgery did put 2 stitches around the J-tube insertion site. Started on TPN today. FiO2 30 PEEP of 5. Patient became hypothermic put on a Manjit hugger. Also hypoglycemic. Decreased urine output. IV fluids increased. Patient's son was at the bedside. I did speak to patient's eldest daughter outside in the waiting room. Did tell the patient doing very poorly. I did try to call the on the phone number she has gone home. Started an IV antifungal today. December 26, 2023 73-year-old white male with history of chronic abdominal pain for the last 8 months has been treated with Protonix 40 mg daily for the last 3 months with no improvement. Patient had a 22 pound weight loss in the last [address] of the abdomen and pelvis 3 weeks ago showed thickening of the antral wall with pathological adenopathy posterior to the stomach suspicious of neoplasm. Today the patient underwent elective upper endoscopy to evaluate further, patient received IV sedation by anesthesia endoscope was inserted into the mouth, esophagus was intubated without any difficulty there was evidence of large amount of liquid and solid food noted in the stomach suggestive of gastric outlet obstruction. Scope could not be advanced through the pylorus, however in the prepyloric area there was a large superficial ulceration identified with multiple biopsies were done from this area. The body cardia and fundus could not adequately visualize because of large amount of retained food in the stomach. Scope was withdrawn back to the stomach and upon careful examination the mucosa of the antrum body and cardia as well as the fundus appeared normal. Procedure was being performed and biopsies were done patient threw up and subsequently became hypoxic there was clearly evidence of witnessed aspiration anesthesia intubated the patient, procedure was terminated, and the patient was transferred to the ICU, this consult was initiated. Patient is now on assist- control rate of 20 tidal volume 500 FiO2 70% PEEP of 10 ABG is pending, earlier ABG showed profound hypoxia patient is on propofol at 50 mcg/kg/min, next ABG is pending. Chest x-ray showed chronic changes without evidence of acute pulmonary disease. 12/27/2023 Patient is seen and evaluated with family at bedside; remains in the ICU intubated and mechanically ventilated. - ABG showed a pO2 of 99 pCO2 31 pH of 7.44. -- Remains on Eraxis daptomycin and Zosyn patient is intermittently requiring Dilaudid, Ativan does not seem to help his agitation and restlessness. -- Continues to have leakage around the jejunostomy tube, and patient is undergoing the J-tube exchange today. Family is at bedside, seems to be quite anxious about his overall condition, and I explained to the that we are doing the best we can considering his critical illness situation and critical illness polyneuropathy. Patient is profoundly weak, and weaning the patient from mechanical ventilation is almost impossible. At least not at this point yet WBC count is 10.9 hemoglobin is 8.1 basic metabolic profile is normal BUN is 46 creatinine 1.90 patient has been off hemodialysis since the . Chest x- ray continues to show stable findings with right upper lobe opacity and right lower lobe opacity and possibly a small right-sided pleural effusion ----Continue ventilatory support, now on IMV mode rate of 16 with pressure support of 14 Continue Precedex and use Dilaudid 0.5 mg every 2-3 hours as needed. Nutritional support patient is now on TPN, Possible J-tube changed today for J- tube malfunction Continue antibiotics including daptomycin and Zosyn, Eraxis was added by infectious disease 12/28/2023 the patient is seen and evaluated in room at bedside; continues to be afebrile, the patient is on the ventilator through the trach FiO2 is currently stable at 30% no significant pleural effusion clinically patient on requiring any pressor support still having drainage around his jejunostomy tube patient dialysis catheter has been discontinued. Patient white count normalized to 7.6, creatinine is 1.51 patient with pneumonia with a sputum showing Citrobacter and Pseudomonas aeruginosa, the patient sputum repeat is still growing Citrobacter and Pseudomonas sensitive to the Pseudomonas is pending continue with Zosyn -patient did have a positive blood culture with staph epi that was oxacillin resistant as the patient did have a PICC line and the dialysis catheter he is on daptomycin repeat blood culture currently growing oxacillin sensitive staph epi, the patient dialysis catheter has been discontinued Has been sent for the culture -patient also have significant excoriation around his jejunostomy tube site which is still leaking Eraxis was added which will be continued as the patient fever pattern has improved and the patient white count has normalized once again discussed with the nursing staff to apply Triad cream which was discussed yesterday but not applied and monitor clinical course closely 12/29/2023 Patient is seen and evaluated with family members at bedside; remains intubated and mechanically ventilated -- ABG showed a pO2 of 105 pCO2 31 pH of 7.45. Remains on Precedex; multiple antibiotics and antifungal including Eraxis daptomycin and Zosyn. -- chest x-ray is showing improvement in his right upper lobe airspace disease/pulmonary abscess. Right lower lobe seems about the same with chronic opacity and possibly some small right-sided pleural effusion. --Family is at bedside, patient is arousable but does not follow any instructions. Gets extremely restless and agitated easily hence patient is receiving Dilaudid which seems to be working much better for this patient than benzodiazepines --possibly transfer the patient to a select care specialty. 12/30/2023 Evaluated in follow-up in the intensive care unit. He remains on the mechanical ventilator. Status post tracheostomy. There has been a decrease in the amount of leakage around the J-tube site he continues on a gravity flow. TPN is infusing tube feedings remain on hold at this time. No bowel movement reported for the last 5 days. X-ray today reveals extensive pleural parenchymal opacities throughout the right with at least a moderate pleural effusion. Mild patchy densities left mid and lower lung are also similar. Blood work reveals a white blood cell count 11.5, hemoglobin 8.1, platelet count of 78, sodium 142, potassium 4.2, BUN of 42, creatinine of 1.22, Phos of 2.3, magnesium 1.9. Patient continues on IV anidulafungin IV Zerbaxa IV daptomycin. Patient is currently sedated with propofol and also Precedex which is currently on hold at this time. December 31, 2023: ICU. Patient continues to do poorly. On propofol 35 mics. Also getting IV Dilaudid and IV Ativan.. Telemetry shows sinus rhythm. J-tube feeding has been discontinued. Significant output through the Abarca bag and around the G-tube site. Patient also putting out through the RAYA drain on the right side. Getting TPN and lipids. Patient is antimicrobial include iv aniedulefungin, IV ceftolozane/tazobactam, IV daptomycin Advance care planning [October 31, 2023] I met with patient's at the bedside. Went through in detail with patient is overall very poor clinical status. Chances of any meaningful recovery next to minimal. I also did mention that patient in my opinion was not stable to go to chronic ventilator setting. I suggested comfort care/hospice. I did not feel and why all honesty that patient is benefiting any further from the treatment we are giving him in fact causing probably more suffering. I also spoke to patient's daughter outside in the waiting room. Total time spent about 50 minutes with over 30 minutes of discussion. Later I called Dr. Luther JIMENEZ the senior cyber intelligence analyst after he received a text that family was expressing that some physician expressed he was doing better and giving hope. I spoke to nurse Lemos in the evening and she and Dr. JIMENEZ did go and talk to patient's family at the bedside later. January 01, 2024: ICU. FiO2 30 and a PEEP of 5. Continues to have increased drainage at the G-tube site. Wound VAC in place over the incision. RAYA drain continues to put out excretions. Good urine output. Drips include IV propofol at 20 mics, also getting IV Ativan and Dilaudid. Patient also keeping getting TPN lipids. Spoke to the patient's at the bedside. No further questions. I did speak to Dr. Irby from general surgery. Hence it is both our impression again that changing the tube will not make any difference to the bigger picture. And probably futile. Dr. Irby will be speaking to the family today. David from social worker palliative care did ask about of family meeting. I did reiterate that I spoken at length to the a few times and also the daughter. Dr. Jimenez also spoke to the and Dr. Irby will be speaking with the today. Prognosis remains to be very poor. I did tell the in my opinion probably the patient is not r a candidate for long-term facility. Will senior cyber intelligence analyst Dr. Jimenez determine if the patient is a candidate for long-term chronic ventilator facility. January 02, 2024: ICU. FiO2 30 PEEP of 5. Telemetry sinus rhythm. Drips include propofol at 20 mics. Patient getting TPN lipids. Receiving 1 unit of packed red blood cell. Patient was having a breakdown around the tracheostomy stoma site. With a cuff leak. G-tube site is continues to have increasing output. Wound VAC in place. RAYA drains also having increasing output. Patient sister and daughter from [place] from out of town. Earlier they spoke at length with Dr. alford from general surgery. Prognosis remains poor. January 03, 2024: ICU. FiO2 30 PEEP of 5. On propofol. 50 mics. Getting TPN lipids. Sinus rhythm. Wound VAC in place. Drainage around the j-tube site. RAYA drain continues to drain. Patient somewhat sedated. at the bedside. Later social worker palliative care David inform me that the surgical team Dr. Irby has suggested possible you have [facility], to which family is trying to obtain transferred to. Per Dr. Jimenez note patient has been decline by long-term care twice. Prognosis remains poor. at the bedside. Had no questions. Brother Nathan is present. January 04, 2024: ICU. FiO2 30 PEEP of 5. Propofol was held this morning. Getting TPN lipids. Sinus rhythm. Wound VAC remains in place. Continues to have drainage around the J-tube. RAYA drain continues to have output. at the bedside. She had no questions. Antibiotics in place. January 05, 2024: ICU. FiO2 30 PEEP of 5. Audibly sounding congested. Getting TPN lipids. Sinus rhythm. Wound VAC in place. Drainage around J-tube site. RAYA output continues. No family at bedside. Getting antibiotics. Lethargic January 06, 2024: ICU. FiO2 30 PEEP of 5. Patient is been off propofol since yesterday. Does move his head about. Try to open his eyes sometimes. Sinus rhythm. Blood pressure is running high yesterday. Started on Cleviprex. Hydralazine is being added. Continue to get TPN lipids. J-tube site remains excoriated. Wound VAC in place. RYAA output about 40 to 50 cc is a 12-hour shift. Patient elder daughter at the bedside. Eraxis was discontinued on January 02. Daptomycin is being discontinued by ID. Continue ceftolo'szone. CT abdomen pelvis done today: 3.1 cm organized fluid collection within the rectovesicular space concerning for abscess. No change in right upper lung 4.9 cm fluid collection with a fluid level. For possible pulmonary abscess. Moderate size right lung base multiloculated hydropneumothorax possibly abscess. Additional areas of air bronchograms. January 07, 2024: ICU. FiO2 30 PEEP of 5. Patient was taken down for pigtail drainage of the right lung abscess. About 200 cc of pus was obtained. Nurse informed me when they told him about for the procedure a lot of pus gushed out from the tracheostomy site. Dr. Love at the bedside did a bronchoscopy. Some pus was aspirated. No obvious fistula was noted. Patient is being back on Cleviprex drip. TPN lipids. January 08, 2024: ICU. Patient was having severe bouts of coughing. Unable to maintain ventilation. Patient was put on Nimbex drip and propofol drip. TPN lipids continue. Has a right chest wall pigtail catheter 90 cc output in 12- hour shift. Drainage from around the J-tube site. RAYA drain continues Ahmet to have an output. Abdominal wound is high since with the wound VAC in place. Patient sedated. January 09, 2024: ICU. Patient is off propofol and Cleviprex. Does open eyes. RAYA drain. About 40 cc last 24 hours. J-tube site continues to have increased output. Requiring dressing change every so often. Wound VAC in place. Patient getting Dilaudid and Ativan. Telemetry shows sinus rhythm. 40 cc out of the pigtail drainage. Patient started on ciprofloxacin and tobramycin. Remains on TPN and lipids. Patient's eldest daughter and at the bedside. No new questions. January 10, 2024: ICU. Overnight patient had become asynchronous. Had to be put on Precedex drip. Hemoglobin dropped down to 6.6. Monitor blood ordered. RAYA output about 100 cc last 24 hours. Wound VAC remains in place. TPN lipid continues. Patient also has a leak in the right pigtail catheter. Sinus rhythm. Continues to have increased secretion at the G-tube site. Ventilator FiO2 30 and a PEEP of 5. at the bedside. Had no further questions. January 11, 2024: ICU. Patient remains on IV Precedex. TPN.'s RAYA output over 30 cc last 24 hours. Wound VAC remains in place. Sinus rhythm. FiO2 30 PEEP of 5. Pigtail with very little output. Spoke to Dr. Love who only spoke to the patient's at length. Gnosis poor. When I walked in patient's 2 daughters and the present. is very tearful crying hugging the patient. The daughter had no further questions January 12, 2024 Ahmet: ICU. Continues on IV Precedex. Getting TPN lipids. Wound VAC in place. Sensitive. FiO2 30 and a PEEP of 5. Patient's at the bedside. Had no questions. January 13, 2024: ICU. FiO2 30 PEEP of 5. Remains on Precedex 0.8 mg. Eyes open. Sometimes does track with head. Not moving limbs. Some decrease in output from the G-tube site. Wound VAC putting out about 100 cc every 12 hours. RAYA drain about 100 cc every [address] Russ met with the family earlier today. Patient's been made DNR. Telemetry sinus rhythm. Patient's and daughter at bedside. They have no questions January 14, 2024: ICU. FiO2 30. PEEP of 5. Patient is has eyes open and tracking. Urine output about 100 cc an hour. NG site output looks like gastric contents. RAYA site about 50 cc in the last 12 hours. Telemetry sinus rhythm. and daughter have asked for hospice consultation for informational visit. They want to use [facility]. I sat with them and the nurse and a full expression of the hospice involved involved. Several questions answered. Daughter does express that she would like to take the patient home. The other sibling will be coming on from [place] on Saturday. They want to hold on at least until then. Active Medications Acetaminophen (Acetaminophen Suppository 650 Mg Supp) 650 mg RECTAL Q6HR PRN PRN Reason: Fever Albuterol/Ipratropium (Ipratropium-Albuterol 3 Ml Neb) 3 ml INHALATION RT-QID NIRMAL Last Admin: 01/14/24 11:05 Dose: 3 ml Albuterol/Ipratropium (Ipratropium-Albuterol 3 Ml Neb) 3 ml INHALATION RT-Q2H PRN PRN Reason: Shortness Of Breath Or Wheezing Last Admin: 01/08/24 04:01 Dose: 3 ml Bisacodyl (Bisacodyl 10 Mg Supp) 10 mg RECTAL DAILY [facility] Last Admin: 01/14/24 10:07 Dose: Not Given Dextrose/Water (Dextrose 50% Syringe 50 Ml) 25 ml IVP PER PROTOCOL PRN; Protocol PRN Reason: Hypoglycemia Last Admin: 01/03/24 06:18 Dose: 25 ml Dextrose/Water (Dextrose 50% Syringe 50 Ml) 50 ml IVP PER PROTOCOL PRN; Protocol PRN Reason: Hypoglycemia Last Admin: 12/25/23 18:03 Dose: 50 ml Hydralazine HCl (Hydralazine Hcl 20 Mg/Ml 1 Ml Vial) 10 mg IVP Q6HR PRN PRN Reason: SBP >140 Last Admin: 01/07/24 23:28 Dose: 10 mg Hydromorphone HCl (Hydromorphone 1 Mg/Ml 1 Ml Syringe) 1 mg IVP Q2HR PRN PRN Reason: Breakthrough Pain Last Admin: 01/14/24 10:28 Dose: 1 mg Fat Emulsion Intravenous 250 (ml/ IV Solution) 250 mls @ 21 mls/hr IV [id number] [facility] Last Admin: 01/14/24 10:26 Dose: 21 mls/hr Ciprofloxacin/Dextrose 400 mg/ (IV Solution) 200 mls @ 200 mls/hr IVPB Q8H [facility] Last Admin: 01/14/24 05:53 Dose: 200 mls/hr Dexmedetomidine HCl 400 mcg/ (IV Solution) 100 mls @ 5.2 mls/hr IV .[id number] [facility]; Protocol Last Admin: 01/14/24 13:26 Dose: 1.2 mcg/kg/hr, 31.2 mls/hr Fluconazole/Sodium Chloride (200 mg/ IV Solution) 100 mls @ 100 mls/hr IVPB DAILY [facility]; Protocol Last Admin: 01/14/24 10:26 Dose: 100 mls/hr Parenteral Vitamin Supplement 10 ml/ Zinc/Copper/Manganese/Selenium 1 ml/ Sodium Acetate 30 meq/ Magnesium Sulfate 1 gm / Calcium Gluconate 0.5 gm/Potassium Phosphate 9 mmol/Potassium Acetate 10 meq/Amino Acids/Dextrose 1,041 mls @ 90 mls/hr IV .BY DURATION NIRMAL Last Admin: 01/14/24 10:28 Dose: 90 mls/hr Sodium Acetate 30 meq/Magnesium Sulfate 1 gm/Calcium Gluconate 0.5 gm/Potassium Phosphate 9 mmol/Potassium Acetate 10 meq/Amino Acids/Dextrose 1,030 mls @ 90 mls/hr IV .BY DURATION [facility] Last Admin: 01/13/24 22:43 Dose: 90 mls/hr Ceftolozane/Tazobactam 3 gm/ (Sodium Chloride) 100 mls @ 100 mls/hr IV Q8HR [facility]; Protocol Last Admin: 01/14/24 10:40 Dose: 100 mls/hr Insulin Aspart (Insulin Aspart (Novolog) 100 Unit/Ml Vial) 0 unit SQ 0000,0600,1200,1800 [facility]; Protocol Last Admin: 01/14/24 13:26 Dose: 4 unit Levetiracetam (Levetiracetam Iv 500 Mg/5 Ml Vial) 250 mg IVP Q24HR [facility] Last Admin: 01/14/24 10:25 Dose: 250 mg Miscellaneous Information (Phosphorus Replacement Protoco 1 Each Misc) 1 each MISCELLANE DAILY PRN; Protocol PRN Reason: Per Protocol Miscellaneous Information (Potassium Replacement Protocol 1 Each Misc) 1 each MISCELLANE DAILY PRN; Protocol PRN Reason: Per Protocol Miscellaneous Information (Magnesium Replacement Protocol 1 Each Misc) 1 each MISCELLANE DAILY PRN; Protocol PRN Reason: Per Protocol Multi-Ingred Cream/Lotion/Oil/Oint (Hydrophilic Cream 180 Gm Tube) 1 applic TOPICAL BID [facility]; Protocol Last Admin: 01/14/24 13:28 Dose: 1 applic Multi-Ingredient Ointment (Zinc Oxide 20% Oint 28.4 Gm Tube) 1 applic TOPICAL BID PRN; Protocol PRN Reason: Skin Irritation Naloxone HCl (Naloxone 0.4 Mg/Ml 1 Ml Vial) 0.2 mg IV Q2M PRN PRN Reason: Opioid Reversal Pantoprazole Sodium (Pantoprazole 40 Mg/10 Ml Vial) 40 mg IVP BID NIRMAL Last Admin: 01/14/24 10:24 Dose: 40 mg Petrolatum (Zinc Oxide Paste (Z-Guard) 1 Applic) 1 applic TOPICAL BID NIRMAL; Protocol Last Admin: 01/14/24 13:28 Dose: 1 applic Past medical history to include: GERD Social history: . No smoking. Physical examination: VITAL SIGNS:97.7, 88, 19, 130/90, 96% on the ventilator GENERAL: Eyes open tracking, TPN and lipids EYES: Pupils equal. , tracking Conjunctiva edouard l. HEENT: External appearance of nose and ears normal, tracheostomy-. NECK: JVD unable to assess; masses not palpable. HEART: First and second heart sounds are normal; edema, present LUNGS: Respiratory rate increased, decreased breath sounds right chest wall pigtail catheter ABDOMEN: Soft, some tenderness. Liver spleen not palpable, no masses palpable..jejunostomy tube-dressing in place, . RAYA drain. Incision with stitches with - wound VAC PSYCH: Unable to assess NEURO: Eyes open. Attempts to talk. Tracking. INVESTIGATIONS, reviewed in the clinical context: January 13: White count 15.3 hemoglobin 8.3 platelets 325 sodium 130 potassium 4.4 creatinine 0.77 January 12: White count 6.2 hemoglobin 8.1 platelets 278 potassium 4 creatinine 0.8 January 11: Sodium 132 potassium 3.9 creatinine 0.86 January 09: White count 15.4 hemoglobin 6.7 platelets 188 January 08: White count 15.3 hemoglobin 7.3 platelets 176 potassium 3.6 creatinine 0.89 January 06: White count 11.4 hemoglobin 7.4 potassium 3[address] abdomen pelvis [January 05]: 3.1 cm organized fluid collection within the rectovesicular space concerning for abscess. No change in right upper lung 4.9 cm fluid collection with a fluid level. For possible pulmonary abscess. Moderate size right lung base multiloculated hydropneumothorax possibly abscess. Additional areas of air bronchograms. January 05: White count 10.6 hemoglobin 7.6 platelets 111 sodium 137 potassium 3.5 BUN 44 creatinine 0.95 January 03: White count 13.4 hemoglobin 8.1 platelets 95 potassium 5.2 creatinine 1.1 albumin 1.8 Sputum culture [December 24] Citrobacter freundii, Pseudomonas aeruginosa Blood culture [December 24] Staphylococcus pettenkoferi December 24: White count 1.5 hemoglobin 8.2 platelets 106 potassium 3.8 BUN [address] chest abdomen without contrast [December 16] right upper lung cavitary lesion with air-fluid level in the posterior aspect and a larger cavitary lesion possibly within the lung parenchyma itself. Extending down towards the diaphragm additional airspace opacities in the left lung base. December 09: White count 26.1 hemoglobin 8.6 platelets 154 potassium 4.1 BUN 86 creatinine 3.31. Hemoglobin this morning was 6.6 prior to transfusion EEG-evidence of generalized cerebral dysfunction and sporadic intermittent higher amplitude sharply contoured waves mainly bifrontal. Showing cortical irritability. 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 Serosal fibrous adhesions. Viable margins. Sputum culture: [November 25]: Citrobacter freundii. Pseudomonas aeruginosa November 20: White count 14.4 hemoglobin 8.8 platelets 229 potassium 4.1 BUN [address] scan abdomen [November 19] possible small bowel obstruction Stool: C. difficile negative November 15: WBC 13 hemoglobin 7.7 platelets 248 potassium 4.3 creatinine 0.87 2D echo: EF 55 to 60%. Kidneys bladder: Unremarkable November 13: White count 12 hemoglobin 6.9 platelets 276 potassium 4.4 creatinine 1.21 magnesium 1.8 iron 6 TIBC 365% saturation 1.64 transferrin 261 ferritin 34.6 B12 569 folate 4.4 November 11: Creatinine 0.86 EGD: Large amount of retained solid liquid food noted in the stomach. Large superficial gastric antral ulceration involving most of the antrum extending into the pylorus causing pyloric stenosis. Biopsies were obtained. Chest x-ray film personally reviewed by me-scattered infiltrates Assessment plan: -Aspiration and gram-negative bacterial pneumonia a bilateral initially from retained gastric contents mostly food and liquids, causing acute hypoxic respiratory failure: On presentation: Subsequent bacterial pneumonia sputum culture November 25: Citrobacter freundii, Pseudomonas aeruginosa. December 13: Klebsiella oxytoca, Pseudomonas aeruginosa IV meropenem-, IV Zosyn.IV ceftolozane/tazobactam, IV daptomycin-all discontinued Currently getting IV ciprofloxacin. Tobramycin was discontinued. Patient resumed home ceftolozane tazobactam. -Patient became asynchronous with the ventilator. On Precedex drip -Breakdown of tracheostomy stoma site. Dressing in place Being followed by senior cyber intelligence analyst -Sepsis with septicemia from above Patient received multiple antibiotics -Right l lung abscess, pigtail catheter placed January 07, 2024. Initially about 200 cc of pus obtained. During the procedure large amount of pus poured out of the tracheostomy site when patient was rolled on the left side. Status post bronchoscopy with some lavage on 01/07/2024 - lung abscess larger 1 on the right side-patient cultures are growing Pseudomonas and Klebsiella oxytoca: Slow to respond , Received other antibiotics. Currently on Levaquin and tobramycin -Acute pulmonary edema and fluid overload from hypoalbuminemic state and fluids from IV.:: Has been getting Lasix and dialysis: Both held -Altered mentation. Possibly encephalopathy. Could be delirium.: Not improving CT brain [December 06] nothing acute Neurology following EEG-evidence of generalized cerebral dysfunction and sporadic intermittent higher amplitude sharply contoured waves mainly bifrontal. Showing cortical irritability. Keppra was started on December 07 -Critical care poly- Pedro neuropathy: Slow to respond PT OT -Gallstones, asymptomatic -Small l bowel perforation at site of jejunostomy tube tip with balloon..: Portion of small bowel resected. On November 24. New J-tube was placed.- drainage to gravity:-Now discontinued December 19: J-tube blocked. J-tube replaced on December 20 over wire December 21: Leaking around the J-tube site. Feeding held December 23: J feeding was started yesterday evening but again started leaking increasingly around the J-tube site-feeding held again December 24: J-tube feeding has been held. Patient is currently having increased drainage from the J-tube site -Acute kidney injury. Possible ATN from hypotensive shock: Resolved Renal ultrasound unremarkable. Started on renal replacement therapy on November 28. Last hemodialysis on December 17. Being followed by an nephrology. Good urine output. -Nutrition Jejunostomy tube placed November [address] Ewing Received TPN-this was discontinued. TPN lipids restarted on December 24 -Lung abscess, not improving Antibiotics to continue. Pulmonary and ID following -Midline abdominal incision wound dehiscence Wound VAC placed -Acute recurrent atrial fibrillation-converted to sinus rhythm Received IV amiodarone. Cardiology following Lopressor -Acute hypoxic respiratory failure from aspiration pneumonia, status post ventilator assisted: Reintubated November 25. FiO2 35 PEEP of 5 Tracheostomy tube-by Dr. Zepeda on December 09 -Septic shock, recovered -Hypertension, recurrent Had received Cleviprex. Hydralazine added -Intermittent hypotension: Corrected Intermittent use of Levophed. 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 Also anemia of blood draw. Iron deficiency anemia Received total of 6 units of blood IV iron. -Severe thrombocytopenia. Would consider coagulation disorder secondary to infection., In the setting of underlying lymphoma.: Fluctuating with infection Hematology following. -Acute blood loss anemia, -Sacral stage II decub ulcer Dressing in place -Hypokalemia, multiple causes -Hypoglycemia -GERD PPI -Acute diarrhea secondary to tube feeding.: Resolved C. difficile ruled out. -Large superficial gastric antral ulceration involving the gastric antrum extending into the pylorus with gastric outlet obstruction. 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 -DNR made on January 12 On Precedex. IV ciprofloxacin and IV tazobactam. TPN lipids. Lengthy discussion with the and daughter at the bedside. Waiting for 2 other daughters from [place] then possibly hospice on Saturday. Have wished to take the patient home. Past Medical History Past Medical History: GERD/Reflux History of Any Multi-Drug Resistant Organisms: None Reported Past Surgical History: Heart Catheterization Additional Past Surgical History / Comment(s): colonsocopy,spinal injection, Past Anesthesia/Blood Transfusion Reactions: No Reported Reaction Past Psychological History: No Psychological Hx Reported Smoking Status: Never smoker Past Alcohol Use History: None Reported Past Drug Use History: None Reported
--- NOTE | 2024-01-14 18:19 | P.PN ---
Subjective Progress Note Date: 01/14/24 Patient seen and examined at bedside. No acute events. Objective - Vital Signs Vital signs: Vital Signs Temp 98.9 F 01/14/24 16:00 Pulse 91 01/14/24 17:00 Resp 33 H 01/14/24 17:00 BP 121/87 01/14/24 17:00 Pulse Ox 97 01/14/24 17:00 FiO2 30 01/14/24 16:00 Intake & Output 01/13/24 01/14/24 01/14/24 18:59 06:59 18:59 Intake Total 612.330 6414.620 1010 Output Total 3825 1575 1490 Balance -3241.227 436.620 -480 Weight 104.5 kg 98.3 kg Intake: IV 205 1717.5 710 0.9 Normal Saline @ KVO 5 27.5 20 Ceftolozane/Tazobactam 3 100 200 gm In Sodium Chloride 0.9 % 100 ml @ 100 mls/hr IV Q8HR [facility] Rx#:[id number] Ciprofloxacin/Dextrose 200 400 200 Pmx 400 mg In Dextrose/ Water 1 200ml.bag @ 200 mls/hr IVPB Q8H [facility] Rx#: [id number] Fluconazole in NaCl,Iso- 100 Osm 200 mg In Saline 1 100ml.bag @ 100 mls/hr IVPB DAILY [facility] Rx#: [id number] Magnesium Sulfate-D5w Pmx 100 1 gm In Dextrose/Water 1 100ml.bag @ 100 mls/hr IVPB ONCE ONE Rx#: [id number] Potassium Chloride 10 meq 200 In Water For Injection 1 100ml.bag @ 100 mls/hr IVPB Q1H [facility] Rx#: [id number] TPN 990 90 Intake, IV Titration 288.773 294.120 300 Amount Dexmedetomidine/0.9% NaCl 288.773 294.120 300 (Pmx) 400 mcg In Empty Bag 1 bag @ 0.2 MCG/KG/HR 5.2 mls/hr IV .[id number] [facility] Rx#:[id number] TPN/PPN 90 TPN 90 Output: Chest Tube Drainage 20 50 Chest Tube Right 20 50 Drainage 105 0 Medial Abdomen 0 Right Abdomen 105 0 Urine 3825 1450 1440 Other: Voiding Method Indwelling Catheter Indwelling Catheter Indwelling Catheter ABP, PAP, CO, CI - Last Documented Arterial Blood Pressure 173/76 - Constitutional General appearance: Present: no acute distress - Gastrointestinal Gastrointestinal Comment(s): Unchanged abdominal exam with some output around J-tube site, wound VAC in place - Labs CBC & Chem 7: 01/14/24 05:45 01/14/24 05:45 Labs: Abnormal Lab Results - Last 24 Hours (Table) 01/13/24 01/14/24 01/14/24 Range/Units 23:56 00:40 04:41 WBC (3.8-10.6) k/uL RBC (4.30-5.90) m/uL Hgb (13.0-17.5) gm/dL Hct (39.0-53.0) % RDW (11.5-15.5) % Neutrophils # (Manual) (1.3-7.7) k/uL Metamyelocytes # (Man) (0) k/uL Myelocytes # (Manual) (0) k/uL ABG pO2 43 L* (83-108) mmHg ABG HCO3 27 H (21-25) mmol/L ABG Total CO2 28 H (19-24) mmol/L ABG O2 Saturation 76.9 L (94-97) % Hemoglobin 8.3 L (13.0-17.5) gm/dL Sodium 131 L (137-145) mmol/L BUN 40 H (9-20) mg/dL Glucose 255 H (74-99) mg/dL POC Glucose (mg/dL) 232 H (70-110) mg/dL Calcium 6.7 L (8.4-10.2) mg/dL 01/14/24 01/14/24 01/14/24 Range/Units 05:39 05:45 05:45 WBC 15.3 H (3.8-10.6) k/uL RBC 2.82 L (4.30-5.90) m/uL Hgb 8.3 L (13.0-17.5) gm/dL Hct 25.6 L (39.0-53.0) % RDW 17.8 H (11.5-15.5) % Neutrophils # (Manual) 11.10 H (1.3-7.7) k/uL Metamyelocytes # (Man) 1.22 H (0) k/uL Myelocytes # (Manual) 0.15 H (0) k/uL ABG pO2 (83-108) mmHg ABG HCO3 (21-25) mmol/L ABG Total CO2 (19-24) mmol/L ABG O2 Saturation (94-97) % Hemoglobin (13.0-17.5) gm/dL Sodium 130 L (137-145) mmol/L BUN 39 H (9-20) mg/dL Glucose 208 H (74-99) mg/dL POC Glucose (mg/dL) 208 H (70-110) mg/dL Calcium 6.7 L (8.4-10.2) mg/dL 01/14/24 Range/Units 12:54 WBC (3.8-10.6) k/uL RBC (4.30-5.90) m/uL Hgb (13.0-17.5) gm/dL Hct (39.0-53.0) % RDW (11.5-15.5) % Neutrophils # (Manual) (1.3-7.7) k/uL Metamyelocytes # (Man) (0) k/uL Myelocytes # (Manual) (0) k/uL ABG pO2 (83-108) mmHg ABG HCO3 (21-25) mmol/L ABG Total CO2 (19-24) mmol/L ABG O2 Saturation (94-97) % Hemoglobin (13.0-17.5) gm/dL Sodium (137-145) mmol/L BUN (9-20) mg/dL Glucose (74-99) mg/dL POC Glucose (mg/dL) 220 H (70-110) mg/dL Calcium (8.4-10.2) mg/dL Assessment and Plan Plan: Per patient's at bedside, patient has opted for hospice care. Meeting with palliative care team for beginning this process.
[2024-01-14 18:51] LABS: Glucose,Whole Blood 197 mg/dL (70-110)
[2024-01-15 00:17] LABS: Glucose,Whole Blood 214 mg/dL (70-110)
[2024-01-15 06:12] LABS: African American GFR (CKD) >90 (>60 ml/min/1.73 sqM); Anion Gap 3 mmol/L; Blood Urea Nitrogen 40 mg/dL (9-20); Calcium 7.1 mg/dL (8.4-10.2); Carbon Dioxide 22 mmol/L (22-30); Chloride 105 mmol/L (98-107); Glucose 193 mg/dL (74-99); Non-African American GFR(CKD) >90 (>60 ml/min/1.73 sqM); Phosphorus 3.5 mg/dL (2.5-4.5); Potassium 3.8 mmol/L (3.5-5.1); Sodium 130 mmol/L (137-145)
[2024-01-15 06:24] LABS: Glucose,Whole Blood 221 mg/dL (70-110)
[2024-01-15] MEDS: POTASSIUM CHLORIDE 10 MEQ in WATER FOR INJECTION 1 100ML.BAG IVPB SCH (06:26)
[2024-01-15 07:19] LABS: Anisocytosis Slight; HCT 25.1 % (39.0-53.0); HGB 7.9 gm/dL (13.0-17.5); Hypochromasia Moderate; MCH 29.5 pg (25.0-35.0); MCHC 31.6 g/dL (31.0-37.0); MCV 93.4 fL (80.0-100.0); Mean Platelet Volume 7.8; Platelet Count 310 k/uL (150-450); RBC 2.69 m/uL (4.30-5.90); RDW 17.2 % (11.5-15.5)
--- NOTE | 2024-01-15 10:37 | XR ---
EXAMINATION TYPE: XR chest 1V portable DATE OF EXAM: 01/15/2024 10:16 AM COMPARISON: None. CLINICAL INDICATION: Male, 73 years old with history of mechanical vent with R side pigtail, TECHNIQUE: XR chest 1V portable view(s) obtained. FINDINGS: The heart size is normal. The pulmonary vasculature is normal. Right lower lobe. Remains present. Mild patchy infiltrate is at the left base. Findings are stable. Left-sided PICC line present with tip in superior vena cava region. Right port present with tip withi n the deep right atrium. Some right apical thickening present. Tracheostomy tube is in the midline. IMPRESSION: 1. Right lower lobe and patchy left lower lobe infiltrates. Correlate for pneumonia. 2. Lines and catheters discussed above [facility], , 01/15/2024 10:35 AM
--- NOTE | 2024-01-15 11:25 | P.PN ---
Subjective Progress Note Date: 01/15/24 Principal diagnosis: Acute hypoxic respiratory failure requiring intubation mechanical ventilation secondary to aspiration. This is a 73-year-old white male with history of chronic abdominal pain for the last 8 months has been treated with Protonix 40 mg daily for the last 3 months with no improvement. Patient had a 22 pound weight loss in the last [address] of the abdomen and pelvis 3 weeks ago showed thickening of the antral wall with pathological adenopathy posterior to the stomach suspicious of neoplasm. Today the patient underwent elective upper endoscopy to evaluate further, patient received IV sedation by anesthesia endoscope was inserted into the mouth, esop hagus was intubated without any difficulty there was evidence of large amount of liquid and solid food noted in the stomach suggestive of gastric outlet obstruction. Scope could not be advanced through the pylorus, however in the prepyloric area there was a large superficial ulceration identified with multiple biopsies were done from this area. The body cardia and fundus could not adequately visualize because of large amount of retained food in the stomach. Scope was withdrawn back to the stomach and upon careful examination the mucosa of the antrum body and cardia as well as the fundus appeared normal. Procedure was being performed and biopsies were done patient threw up and subsequently became hypoxic there was clearly evidence of witnessed aspiration anesthesia intubated the patient, procedure was terminated, and the patient was transferred to the ICU, this consult was initiated. Patient is now on assist- control rate of 20 tidal volume 500 FiO2 70% PEEP of 10 ABG is pending, earlier ABG showed profound hypoxia patient is on propofol at 50 mcg/kg/min, next ABG is pending. Chest x-ray showed chronic changes without evidence of acute pulmonary disease. 01/10/2024, the patient is on low-dose Precedex. Currently comfortable, sensitive to mechanical ventilator. Output from the pigtail has dropped and the patient continues to have a positive airleak. The chest x-ray shows bilateral consolidation worse on the right and there is a small right apical pneumothorax. Pigtail catheter is in a good location. Blood gas showed a pH of 7.48 with a pCO2 of 35 and a pO2 of 83. He is on assist-control mode with rate of 20, tidal volume of 600, FiO2 30% with a PEEP of 5. RAYA drain output is serosanguineous. TPN is at 90 cc an hour. Fluid balance is -700 cc. The white cell count is at 15.4, hemoglobin is at 6.7 and the patient was given a unit of packed RBC and a platelet count is 188. Electrolytes show a BUN of 46 with a creatinine of 0.7, sodium of 135, potassium level of 3.3. Antibiotics has been modified to a combination of ciprofloxacin and tobramycin as the patient showed quinolone sensitive Pseudomonas in the sputum and in the drain the abscess from the right lung. 01/11/2024, the patient is being seen for a follow-up. Patient is currently on low-dose Precedex at 0.2 mcg/kg/min. Calm and comfortable, no significant coughing. Remains on the mechanical ventilator./On the same vent setting which includes assist-control of 20, tidal volume of 600, FiO2 30% with a PEEP of 5. Chest x-ray shows a right apical pneumothorax, extensive consolidation of the right lung and some limited consolidation in the left and the catheter is in place with purulent output. There is also possibility through the pigtail catheter. Tracheostomy tube is in good location. Remains on tobramycin and ciprofloxacin. The white cell count of 13.6, hemoglobin 8.4 and platelet count is at 208. Blood gas from today showed a pH of 7.48 with a pCO2 of 33 and pO2 of 93. Sodium is at 134, potassium is at 3.7, BUN is 44 with a creatinine of 0.8. LFTs are normal and the patient has an alkaline phosphatase of 233 as the patient continues to receive TPN for nutritional support. Triglyceride levels at 187. Otherwise, no other significant changes condition. Cardiac rhythm remains sinus. The patient is producing adequate amount of urine output. Extremely debilitated, extremely weak, J-tube is not functional and there is leak around the J-tube. The patient was seen again by general surgery and there is no plan to exchange the J-tube. Concern of some leak around the J-tube and based on that an ostomy appliance will be applied around the J-tube. On 01/12/2024, clinically unchanged, remains on Precedex at 0.7 mcg/kg/h. Remains on TPN for nutritional support. Remains on same ventilator settings with assist-control mode rate of 20, tidal volume of 500, FiO2 30% with a PEEP of 5. No blood gases are available from today. Repeat chest x-ray shows stable findings. Stable right apical pneumothorax. Consolidation involving the right lung and the left base remains unchanged. Sputum sample was positive for Pseudomonas aeruginosa and the patient remains on a combination of ciprofloxacin and tobramycin. The patient has positive air leak in his pigtail catheter and total amount of output overnight and over the past 12 hours has been in the order of 80 cc. Extremely debilitated. Extremely weak. Not coherent although arousable. evaluated today on 01/13/2024, remains in the ICU, patient remains intubated and mechanically ventilated, he is on volume control plus with tidal volume of 500 rate 20 FiO2 30% and PEEP of 5 ABG showed a pO2 of 90 pCO2 35 pH of 7.45. No changes were made in ventilator settings. Patient remains on Precedex at 0.8 mcg/kg/h remains on TPN at 90 cc/h patient remains on multiple antibiotics including Cipro fluconazole and tobramycin patient has resistant Pseudomonas in the sputum. Continues to have an air leak in the right-sided chest tube and he has a pigtail catheter in place. Chest x-ray continues showed significant airspace disease bilaterally. Patient is arousable but does not follow any instructions, he is a bit encephalopathic. Family is at bedside, and I had a long discussion with the family regarding his condition and prognosis.WBC count today 6.2 hemoglobin 8.1. Basic metabolic profile is normal renal profile is normal bicarb is 20. Albumin is 1.9. Patient is receiving Dilaudid intermittently for agitation. And that seems to calm down along with Precedex. Patient was seen today on 01/14/2024, patient remains in the ICU, intubated and mechanically ventilated, on volume control plus mode of mechanical ventilation with rate of 20 tidal volume 500 FiO2 30% and PEEP of 5 ABG showed a pO2 of 43 pCO2 of 40 pH of 7.3, however I believe there is an error in the pO2 since his O2 saturation is presently 100%. Patient remains on Precedex, 1.2 mcg/kg/h is also on TPN at 90 cc/h antibiotics were changed he is now on Zerbaxa Cipro and fluconazole. Patient had a -2.8 L over the last 24 hours, today he is awake, follows simple instructions. Remains intubated and mechanically ventilated, and noted to be a bit tachypneic. Patient is not requiring any pressors not requiring any propofol, hemodynamically stable, no chest x-ray was done today, continues to have air leak in the Pleur-evac. WBC is 15.3 hemoglobin 8.3, basic metabolic profile is normal renal profile is normal Patient was evaluated today on 01/15/2024, remains in the ICU, remains intubated and mechanically ventilated. Remains on volume control plus mode of mechanical ventilation with a rate of 20 tidal volume 500 FiO2 30% and PEEP of 5 No ABG was done today. Patient is awake, he looks comfortable, has I will give him a trial of pressure support of 14 and CPAP today. Continues to have multiple drips Precedex, at 1.3 mcg/kg/h he is also on TPN at 90 cc/h receiving Dilaudid 1 mg every 2 hours as needed patient is on the backside, ciprofloxacin, and fluconazole. Patient is to be placed on hospice possibly in the next 24 hours, family discussed his condition with hospice staff apparently yesterday. And the plan is to proceed with hospice on . Continues to have air leak from the pigtail catheter/pleural VAC. Chest x-ray continues to show bilateral airspace disease specially in the right lower lobe and left lower lobe, sputum has been positive for resistant Pseudomonas WBC count is 17 hemoglobin 7.9 basic metabolic profile is normal BUN is 40 creatinine 0.76 Objective - Vital Signs Vital signs: Vital Signs Temp 98 F 01/15/24 07:00 Pulse 80 01/15/24 09:00 Resp 29 H 01/15/24 09:00 BP 130/86 01/15/24 09:00 Pulse Ox 98 01/15/24 09:00 FiO2 30 01/15/24 08:32 Intake & Output 01/14/24 01/15/24 01/15/24 18:59 06:59 18:59 Intake Total 2045 1486.537 466.394 Output Total 1615 1190 375 Balance 430 296.537 91.394 Weight 100.7 kg Intake: IV 715 55 285 0.9 Normal Saline @ KVO 25 55 15 Ceftolozane/Tazobactam 3 200 gm In Sodium Chloride 0.9 % 100 ml @ 100 mls/hr IV Q8HR [facility] Rx#:[id number] Ciprofloxacin/Dextrose 200 Pmx 400 mg In Dextrose/ Water 1 200ml.bag @ 200 mls/hr IVPB Q8H [facility] Rx#: [id number] Fluconazole in NaCl,Iso- 100 Osm 200 mg In Saline 1 100ml.bag @ 100 mls/hr IVPB DAILY [facility] Rx#: [id number] Magnesium Sulfate-D5w Pmx 100 1 gm In Dextrose/Water 1 100ml.bag @ 100 mls/hr IVPB ONCE ONE Rx#: [id number] TPN 90 270 Intake, IV Titration 1330 1431.537 181.394 Amount Dexmedetomidine/0.9% NaCl 300 390.537 181.394 (Pmx) 400 mcg In Empty Bag 1 bag @ 0.2 MCG/KG/HR 5.2 mls/hr IV .[id number] [facility] Rx#:[id number] Mvi, Adult No.4 with Vit 1041 K 10 ml Trace (Conc-1Ml/ Dose) 1 ml Sodium Acetate 30 meq Magnesium Sulfate gm 1 gm Calcium Gluconate 0.5 gm Potassium Phosphate 9 mmol Potassium Acetate 10 meq In Amino Acids 5 %/ Dextrose 20 % 1,000 ml @ 90 mls/hr IV .BY DURATION [facility] Rx#:[id number] Sodium Acetate 30 meq 1030 Magnesium Sulfate gm 1 gm Calcium Gluconate 0.5 gm Potassium Phosphate 9 mmol Potassium Acetate 10 meq In Amino Acids 5 %/ Dextrose 20 % 1,000 ml @ 90 mls/hr IV .BY DURATION [facility] Rx#:[id number] Output: Chest Tube Drainage 50 0 0 Chest Tube Right 50 0 0 Drainage 0 0 0 Medial Abdomen 0 Right Abdomen 0 0 0 Right Upper Posterior 0 Chest Urine 1565 1190 375 Other: Voiding Method Indwelling Catheter Indwelling Catheter Indwelling Catheter ABP, PAP, CO, CI - Last Documented Arterial Blood Pressure 173/76 - Exam General: Revealed 73-year-old white male on mechanical ventilation, on Precedex, Skin: Skin is warm and dry and no rashes or lesions are noted. Eye: Pupils are equal, round and reactive to light, extra-ocular movements are intact; there is normal conjunctiva bilaterally. Ears, nose, mouth and throat: There are moist mucous membranes and no oral lesions. Neck: The neck is supple, there is no tenderness or JVD. Tracheostomy is intact. Cardiovascular: There is a regular rate and rhythm. No murmur, rub or gallop is appreciated. Respiratory: Crackles at the bases, no rhonchi no wheezes, right-sided pigtail catheter is noted, evidence of air leak noted. Gastrointestinal: no rebound, no guarding, no bowel sounds, wound VAC is noted jejunostomy tube is noted, surgery is considering removing the jejunostomy tube altogether. Musculoskeletal: No deformities and no limitation range of motion other the patient seems to be generally weak. Neurological: Patient is awake ,generally weak, follows simple instructions today like squeezing hands and wiggling toes. Extremities: 1 trace of bipedal edema - Labs CBC & Chem 7: 01/15/24 05:21 01/15/24 05:21 Labs: Abnormal Lab Results - Last 24 Hours (Table) 01/14/24 01/14/24 01/15/24 Range/Units 12:54 18:49 00:16 WBC (3.8-10.6) k/uL RBC (4.30-5.90) m/uL Hgb (13.0-17.5) gm/dL Hct (39.0-53.0) % RDW (11.5-15.5) % Sodium (137-145) mmol/L BUN (9-20) mg/dL Glucose (74-99) mg/dL POC Glucose (mg/dL) 220 H 197 H 214 H (70-110) mg/dL Calcium (8.4-10.2) mg/dL 01/15/24 01/15/24 01/15/24 Range/Units 05:21 05:21 06:23 WBC 17.0 H (3.8-10.6) k/uL RBC 2.69 L (4.30-5.90) m/uL Hgb 7.9 L (13.0-17.5) gm/dL Hct 25.1 L (39.0-53.0) % RDW 17.2 H (11.5-15.5) % Sodium 130 L (137-145) mmol/L BUN 40 H (9-20) mg/dL Glucose 193 H (74-99) mg/dL POC Glucose (mg/dL) 221 H (70-110) mg/dL Calcium 7.1 L (8.4-10.2) mg/dL Assessment and Plan Assessment: Impression: Acute hypoxic respiratory failure requiring intubation mechanical ventilation secondary to aspiration. Status post tracheostomy on 12/10/2023 The patient has bilateral pneumonia with a cavitary infiltrate in the right upper lobe, secondary to Pseudomonas aeruginosa and Citrobacter and the patient is currently on a combination of ciprofloxacin, fluconazole, and tobramycin CAT scan of the chest done on 12/17/2023 was reviewed and the patient has a cavitating cyst/abscess in the posterior aspect of the right upper lobe in addition to patchy opacities bilaterally right more than left consistent with pneumonia,/gram-negative pneumonia. The patient had a pigtail catheter inserted with drainage of the right lung abscess. The bronchial washing is positive for Pseudomonas aeruginosa, quinolone sensitive and the cultures from the pigtail catheter/lung abscess was also positive for Pseudomonas aeruginosa.. Status post J-tube placement 11/16/2023, multiple complications since then related to the J-tube placement requiring multiple surgeries. Ongoing leak around the J-tube, improving still cannot use the J-tube for feeding Persistent right apical pneumothorax with persistent air leak noted in the pigtail catheter Acute peritonitis secondary to above, secondary to small bowel perforation with abdominal contamination Septic shock secondary to above Paroxysmal atrial fibrillation Acute kidney injury requiring hemodialysis secondary to sepsis and septic shock, last hemodialysis was on the , apparently patient is not requiring hemodialysis since then and nephrology planning to discontinue his dialysis catheter from the left groin Weight loss secondary to non-Hodgkin's lymphoma Acute aspiration pneumonia/right upper lobe lung abscess Acute aspiration during upper endoscopy most likely secondary to gastric outlet obstruction secondary to non-Hodgkin's lymphoma based on the pathology from stomach biopsies 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 Critical illness polyneuropathy Metabolic encephalopathy Malfunctioning of the J-tube Recommendation: Continue ventilatory support patient will be given however a trial of pressure support of 14 and CPAP, on a trial basis Continue antibiotics and antifungal therapy Continue Dilaudid and Precedex Continue nutritional support/TPN X-ray and labs were reviewed today. Continue GI and DVT prophylaxis Family is still planning to proceed with hospice tomorrow. And I think that is very appropriate General Surgery still following regarding his malfunctioning J-tube and wound VAC. Remains extremely and critically ill Critical care time is over 30 Will continue to follow Time with Patient: Greater than 30
--- NOTE | 2024-01-15 11:37 | P.PN ---
Progress Note - Text Progress Note Date: 01/15/24 Chief Complaint: On the ventilator This is a 73-year-old patient, follows with Dr. Patricia Deal. Patient was seen this morning in the ICU. Patient's and daughter at the bedside. History obtained predominantly by the . Patient been having trouble with his stomach symptoms for close to 8 months. Patient underwent EGD by Dr. Sahara Cheng yesterday. Patient was found to have ulcerated around the antrum and obstruction to the pylorus. A lot of retained food was found. Patient aspirated. Had to be intubated and brought to the ICU. On a Levophed drip. FiO2 50 and a PEEP of 6. Patient had been losing weight lost about 25 pounds. Previously has a history of mitral valve prolapse. November 13: ICU. Patient remains on Precedex drip and propofol drip. Did not do well attempted extubation yesterday. Patient been off Levophed. NG tube to suction. Spoke to patient's and son at the bedside. Biopsy results awaited. Hemoglobin dropped to 6.9 this morning. Get a unit of blood. November 14: ICU. Up in a chair. Extubated yesterday. NG tube to suction. at the bedside. 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 Oncology was consulted. They have ordered a port. Results discussed with Dr. Sahara Cheng. General surgery was consulted for J-tube placement. Discussed with at the bedside. Patient getting IV fluids, IV Zosyn,. Patient has been on IV amiodarone for A-fib-back in sinus rhythm. Multiple PACs. Did receive unit of blood yesterday. Also IV ferric gluconate. November 15: ICU. Patient earlier today underwent jejunostomy tube placement and a port placement. Patient awake. Answering questions. NG tube to suction present. Updated patient's . Patient remains on IV amiodarone and IV Zosyn. November 16: ICU. Up in the chair. NG tube present but not to suction. Trickle feeding through the jejunostomy tube should be started today. Dietitian has been on board. IV Zosyn to continue. Patient's and his sister at the bedside. Discussed. Also spoke with Dr. Serna. Given patient has no other predisposing cardiac factors for the A-fib except acute illness. His LV function is normal. Left atrium is normal. He has already been loaded with IV amiodarone. Will switch him to oral Lopressor 12.5 twice daily. Hence will DC amiodarone. Patient yesterday had wheezing was put on bronchodilators steroids per pulmonary. November 17: Propped up in bed. NG tube was discontinued. Sinus rhythm. Remains NPO. Getting G-tube feeding at 40 cc an hour. Dietitian following. Get arrangements done for DC home tomorrow including tube feeding. Increase activity discussed with patient and elder daughter at the bedside. Still requiring oxygen. Incentive spirometry. November 18: Patient up in recliner. Earlier today spoke to social work assistant David. Informed patient is rather weak and will be going to the [facility]. Looking at authorization. Denae came to the room and spoke to patient his and his daughter. They are very keen to take the patient home as 3 daughters all nurses and they will take care of him at home. Patient earlier today to abdominal cramping and some loose stools.'s tube feeding was held. Told the nurse to start back at the rate of 40 cc an hour. He was before the getting it at 55 cc an hour. Incentive spirometry was again emphasized. Patient remains on 4 L of oxygen. November 19: I saw the patient this morning. Hence I am in the evening. Morning was sitting with his sons. Has some edema. Lungs had crackles I gave him 40 mg of Lasix. He did make good urine. Tube feeding was held from the p revious evening of because of abdominal cramping. Acute abdominal series showed nonspecific bowel gas pattern and SBO to be ruled out. Family and patient was updated. Told him discharge will depend on day by day. Later this afternoon CT scanAnd abdomen pelvis done. Showed small bowel to be 3 point centimeter dilated. Some anasarca. Gastric findings. Gallstones. Later spoke to Dr. Irby from general surgery. They will further review and decide about further plan of action. Will give further dose of IV Lasix because of fluid overload from likely hypoalbuminemia and IV fluids previously received. Patient may take his pills by mouth. Total time spent today about 1 hour with over 40 minutes of discussion. Patient did state his breathing is better after Lasix this morning. November 20: Saw the patient this morning. was present. Patient received 2 more doses of Lasix. Diuresed well. Breathing much better. Lungs are sounding better. Discussed with Dr. Zepeda other surgeon. He is taking 3 cc out of the balloon and the gastrostomy tube. Started trickle feeding at 5 cc an hour. Will see how this does. Later in the day ran into the and the daughter again. Did update them on the same. Dilaudid was discontinued yesterday but morphine was ordered by surgery for patient having pain. Concerns about GI issues with that we will DC the morphine. As family does not want the same. November 21: Patient reclining bed. Tired. Several family members at the bedside. Including his and eldest daughter. Patient started on trickle feed yesterday at 5 cc an hour. This morning he has been on 10 cc an hour. Still having some loose stools. C. difficile was ordered. Patient on 2 L of nasal cannula. Has diuresed well. Will give an additional dose of Lasix today. If C. difficile is negative and the diarrhea is from the tube feedings we may have to use a fecal management system to keep him comfortable. Otherwise patient remains NPO. Dietitian is following the patient. Care was discussed length with patient the and daughter at the bedside. Questions answered. Liquid Tylenol has been added for abdominal pain. Avoid narcotics. Elevated white count likely from Solu-Medrol 11/23/2023--patient was feeling better today. Multiple family member at bedside. No issues overnight. Normal saline at 10 cc an hour, tube feeding at 20 cc an hour, remains on Zosyn, on 3 L oxygen. Afebrile. Heart rate 62, respiratory rate 16, blood pressure 114/67, saturating 91% on 3 L. WBCs 14.5, 9.7 hemoglobin. Platelet 242. BMP is unremarkable. Pulmonary and general surgery following. General surgery recommended to continue tube feeds at 20 cc/h. 11/24/2023--patient reported significant abdominal discomfort, also noted to have leak around G-tube. General surgery is following, evaluated the patient at bedside, adjusted tube feeds. Also reported having diarrhea, on 2 L oxygen, went up to 5 L. Blood pressure was low, 500 mL fluid bolus with close monitoring of respiratory status ordered. Currently on DuoNebs, Solu-Medrol, will continue Zosyn. Chest x-ray showed a left lower lobe infiltrate. Abdominal x-ray showed multiple air-fluid levels. CT abdomen showed multiple dilated small bowel loops, consistent with obstruction, pneumoperitoneum, cholelithiasis and ascites. WBCs 14.1, platelet 255, hemoglobin 8.9. NG tube in place. Family at bedside. patient transferred to SICU for close monitoring. 11/25/23--patient is currently in the ICU, required Levophed overnight due to low blood pressure, low urine output with creatinine trending up. Nephrology following. Podiatric Assistant also following. Patient remains n.p.o., NG tube in place, following NG tube insertion patient had total of 2 L output, J-tube was draining approximately 200 cc over last 8 hours, continues to have abdominal pain and abdominal tenderness. Patient on IV fluids. Currently on 4 L oxygen. WBCs 8.2, hemoglobin 12.3, platelet 188. Chest x-ray earlier today showed right sided port and a stable left lung airspace disease, NG tube in place. Patient currently on Zosyn, on IV Dilaudid for pain control, on IV Solu-Medrol. General surgery planning for OR today, started on TPN. 11/26/23--patient was seen and examined today. Patient is currently sedated, intubated on mechanical ventilation. Family at bedside. Patient underwent ex lap, abdominal washout, small bowel resection with new feeding jejunostomy tube placement yesterday, small bowel was noted to be perforated with significant contamination of abdominal cavity. Patient is currently on vancomycin and Zosyn. Creatinine went up to 2.85, nephrology following, recommended to continue IV fluids, avoid nephrotoxin Preserved EF on echocardiogram.. Patient currently on Levophed, vasopressin in the ICU for close monitoring. Patient is afebrile, heart rate 122, blood pressure 129/76, currently on mechanical ventilation, sedated. November 26: ICU. Intubated. FiO2 60 and a PEEP of 5. Drips include IV amiodarone. Heart rate was up early did get fired microgram of IV digoxin and 2.5 mg of IV Lopressor. Did drop her blood pressure bit. Urine output was low. Received 80 mg of IV Lasix. Ahmet to 150 cc. Other drips include IV propofol, vasopressin, Levophed. TPN was started yesterday. Antibiotics include IV Zosyn and vancomycin. Patient has a J-tube to drainage to gravity. Spoke to patient's younger daughter and at the bedside. Prognosis guarded. Continue current treatment plan. Chest x-ray shows right lower lobe consolidation. Small pleural effusion. November 27: ICU. Intubated. FiO2 55 and a PEEP of 5. Antibiotics include IV vancomycin. Drips include Levophed at a small dose, IV vasopressin, propofol, amiodarone. Patient converted to sinus rhythm this morning. Getting TPN and normal saline at 75 cc an hour. Urine output about 25 cc an hour. 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 NG tube with bilious output. And also GI J-tube output to gravity. Spoke to patient's and daughter at the bedside. They understand patient still not out of the kee. Platelets have dropped-therefore probably Zosyn stopped. November 28: ICU. Intubated. FiO2 55 and a PEEP of 5. Patient is in sinus rhythm. Seen this morning. Due for dialysis catheter this afternoon. Urine output about 15 to 20 cc an hour. Patient is on IV Lasix 80 mg every 12. Saline is KVO. Drips include IV propofol vasopressin. Patient having significant output through the RAYA drain and the jejunostomy tube to drainage. Creatinine had been getting worse. Patient's at the bedside. Understands patient's remains critically ill. Hemoglobin is down to 7. Given that patient's pain hypotensive, and on vasopressin we will give a unit of blood with dialysis. Getting TPN antibiotic changed to IV meropenem November 29: ICU. Intubated. FiO2 55 and a PEEP of 5. Remains in sinus rhythm. Getting TPN. Dialyzed yesterday and this morning. About 1000 cc removed. Urine output about 50 cc an hour. Patient is on IV propofol. Off vasopressin. Still having significant output through the RAYA drain and jejunostomy tube. Patient received a second unit of blood yesterday. Patient's and daughter at the bedside. I did discuss guarded prognosis. Did asked them to revisit CODE STATUS.. Getting IV meropenem. November 30: ICU. Intubated. Did get a sedation holiday t today. Back on propofol. Getting TPN. Still getting IV Lasix. Fair urine output. Jejunostomy tube in last 8 hours was about 30 cc output. RAYA drain in the 8 hours had about 180 cc output. Telemetry shows sinus rhythm. NG tube has low intermittent suction with negative output. On the vent with FiO2 40 and a PEEP of 5. No hemodialysis today. Discussed with the and eldest daughter at the bedside. IV meropenem-patient's sputum had grown Citrobacter freundii and Pseudomonas aeruginosa. December 01: ICU. Intubated. Jejunostomy tube to gravity. Only 10 cc output in last 24 hours. RAYA drain. About 190 cc last 6 hours. Nasogastric tube to low intermittent suction. Minimal output. Patient is on a small dose of propofol 5 mics. Telemetry shows sinus rhythm. Patient started on small dose of Cleviprex this morning. Blood pressure. Getting TPN. FiO2 35 and PEEP of 5. Discussed with the at the bedside. Hemodialysis today December 02: ICU. Patient remains intubated. FiO2 35 PEEP of 5. Patient is on IV propofol. IV Cleviprex was discontinued yesterday. Also remains on TPN. Telemetry shows sinus rhythm. NG tube is good no output. Still significant output through the RAYA drain. Jejunostomy tube has minimal output. Patient had hemodialysis today 2 L of fluid was removed. Oral half liters yesterday. Patient getting a sedation holiday. General Surgery started the patient on trickle feeding at 10 cc an hour. I did speak to patient's at the bedside. Prognosis remains guarded but there is some improvement. December 03: ICU. Intubated. FiO2 35 PEEP of 5. Drips include IV propofol and Precedex. Getting TPN. Telemetry shows sinus rhythm. Remains on IV Lasix 80 mg twice a day. IV meropenem. Because patient gets easily agitated when transitioning off propofol he has been switched over to Precedex. For hemodialysis today. December 04: ICU. Intubated. FiO2 35 and a PEEP of 5. Patient been taken off propofol is on Precedex. Telemetry sinus rhythm. J-tube with minimal output. RAYA drain with decreased output. NG tube to suction minimal output. Family wanted to hold off trickle feeding until cleared by oncology. Which he did today. Trickle feeding will be started today. Spoke to patient's and one of the daughters at the bedside. Dr. Russ is spoken to the earlier this point they want to do further tracheostomy tube. October 4: ICU. Intubated. FiO2 35 PEEP of 5. Patient remains on Precedex and PPN. Patient's dialysis catheter was not functioning is getting another [address] Bobby this afternoon. Remains on IV meropenem. Has a RAYA drain in the jejunostomy tube to gravity. NG tube to low intermittent suction. No family at the bedside. December 06: ICU. Intubated. FiO2 35 PEEP of 5. RAYA drain putting out about approximately 120 cc per shift. Patient on IV Precedex. FiO2 35 PEEP of 5. Telemetry-sinus rhythm. Patient occasionally been put on small dose of Levophed specially for hemodialysis getting it today. Also started on midodrine for low blood pressure. Tolerating tube feeding at 10 cc an hour. Also had a bowel movement. Mentation has not improved. Even with sedation holiday. Neurology consulted. CT brain shows no acute process. December 07: ICU. Intubated. FiO2 35 PEEP of 5. Telemetry-sinus rhythm. NG tube to suction low intermittent minimal output. Getting TPN. Tube feeding at 20 cc an hour. RAYA drain averaging over 100 cc per shift. Remains on Precedex. EEG was done today. Discussed with at the bedside. Family is currently not inclined for tracheostomy tube today. Day 13 of being intubated December 08: ICU. Intubated. FiO2 35 PEEP of 5. Patient is put on back on propofol per aircraft engine mechanic Dr. JIMENEZ. EEG did show some potential for spikes was put on Keppra by neurology. Telemetry shows sinus rhythm. NG tube to suction with no output. Tube feeding was put on hold because of questionable discharge on the site. Being restarted today. RAYA drain is 150 cc last 12-hour shift. Patient does open eyes. Family has decided to proceed with tracheostomy and surgery has been consulted for the same. Spoke to the at the bedside. For hemodialysis today. December 09: ICU. Intubated FiO2 35 PEEP of 5. Patient seen this morning. Pending tracheostomy placement this afternoon. Remains NPO. G-tube feeding was held overnight. RAYA drain putting out about 100 cc per shift. Received a unit of blood for hemoglobin of 6.6. On 25 mics of propofol. Getting TPN and meropenem. Spoke to the at the bedside. Patient became hypotensive with dialysis yesterday. Levophed had to be given. Only 800 cc were removed yesterday. No hemodialysis today. December 10: ICU . FiO2 35, PEEP 5. Tracheostomy was done yesterday by Dr. Ewing. G-tube feeding was started today at 10 cc an hour. Dietitian following. RAYA drain 12-hour shift overnight put out about 30 cc. Patient hemodialysis today about 1 L removed. Patient has a sacral stage II decub with a dressing. On propofol 20 mics. Spoke to at the bedside. TPN. Meropenem was discontinued yesterday. December 11: ICU. FiO2 35 PEEP of 5. Tracheostomy. NG tube was discontinued. No hemodialysis today. Telemetry shows sinus rhythm. J-tube feeding at 40 cc an hour. TPN was discontinued. Patient has been off propofol also. PICC line in place. Patient had a EEG done today. Spoke to patient's elder daughter at the bedside. May open eyes occasionally. Not really following commands December 12: 73-year-old white male with history of chronic abdominal pain for the last 8 months has been treated with Protonix 40 mg daily for the last 3 months with no improvement. Patient had a 22 pound weight loss in the last [address] of the abdomen and pelvis 3 weeks ago showed thickening of the antral wall with pathological adenopathy posterior to the stomach suspicious of neoplasm. Today the patient underwent elective upper endoscopy to evaluate further, patient received IV sedation by anesthesia endoscope was inserted into the mouth, esophagus was intubated without any difficulty there was evidence of large amount of liquid and solid food noted in the stomach suggestive of gastric outlet obstruction. Scope could not be advanced through the pylorus, however in the prepyloric area there was a large superficial ulceration identified with multiple biopsies were done from this area. The body cardia and fundus could not adequately visualize because of large amount of retained food in the s tomach. Scope was withdrawn back to the stomach and upon careful examination the mucosa of the antrum body and cardia as well as the fundus appeared normal. Procedure was being performed and biopsies were done patient threw up and subsequently became hypoxic there was clearly evidence of witnessed aspiration anesthesia intubated the patient, procedure was terminated, and the patient was transferred to the ICU, this consult was initiated. Patient is now on assist- control rate of 20 tidal volume 500 FiO2 70% PEEP of 10 ABG is pending, earlier ABG showed profound hypoxia patient is on propofol at 50 mcg/kg/min, next ABG is pending. Chest x-ray showed chronic changes without evidence of acute pulmonary disease. 12/14/2023 Patient remains in the ICU, generally weak Patient s/p tracheostomy G-tube in place Patient still has fever and mild tachycardia but tachycardia is improving, leukocytosis improving as well. Hemoglobin 8.1. Creatinine 3.0 and nephrology team on the case. He has mild transaminitis. He was getting Zosyn which is held now, nowCalcitonin is pending 12/14 Patient shon in the ICU, he is still encephalopathic and does not follow command. Neurology service following closely. He is status post tracheostomy. Also J-tube His abdomen looks soft and on exam he has mild coarse secretions. Has a Abarca catheter with clear urine His pro- Calcitonin is still high but trending down 3.0 down to 1.9 No fever this morning WBC slightly less at 16.3 Patient currently off antibiotic He is getting steroids IV Solu-Medrol which might contribute to his leukocytosis. Also he is on IV Keppra by neurologist 12/14 Patient remains confused in the ICU calm, he had a good night per family member and staff. Tracheostomy in place Patient has occasional coughing spells, patient also developed some partial wound dehiscence in his abdomen, surgery team are aware and are going to evaluate the patient Patient also has positive blood culture from 12/13: Gram-positive cocci in clusters. Patient received one-time dose of IV vancomycin. Patient also had fever 2 days ago, leukocytosis and total elevated pro- Calcitonin. Therefore we are going to consult infectious disease team. As his antibiotic Zosyn was stopped few days ago. Currently patient KVO He has good urine output December 16: ICU. Trach. Congested. Requiring suctioning. No hemodialysis today. Getting G-tube feeding at 50 cc an hour. FiO2 30 and a PEEP of 5. On IV Precedex. Eyes open. Does follow commands. Weakness in the limbs. Spoke to at the bedside. Sputum positive for Klebsiella oxytoca and Pseudomonas aeruginosa. December 17: ICU. On trach. Currently cough with increased secretions requiring suctioning. Adding scopolamine patch. Very much clear secretion. CT scan is showing right upper lobe lung abscess. G-tube feeding at 50 cc an hour. Hemodialysis today. RAYA drain putting out about 140 cc a shift. Serous. Has been midline incision wound dehiscence. Wound VAC was placed on it. Stage II ulcer. Patient is on Precedex drip 0.15 mics. Urine output is good about 6200 cc an hour. Spoke to the at the bedside. Patient currently not stable for transfer to LTAC. No limb movements. PT OT on the case. otherwise awake does follow simple commands by face December 18: ICU. Patient seen this afternoon. Because of pain getting IV Dilaudid. No nasal cannula on room air. Does move about his head. Telemetry shows sinus rhythm. FiO2 30 and a PEEP of 5. Patient started on scopolamine patch yesterday has decreased secretions today. Good urine output. Tube feeding at 60 cc an hour. Wound VAC on incisional would be high since in place. RAYA drain continues to make output. No hemodialysis today December 19: ICU. Patient was seen earlier today. FiO2 30 and a PEEP of 5. Sinus rhythm. Awake. Does follow with eyes. Tube feeding got obstructed tube feedings held for now. Increasing oozing from the incision drainage site. at the bedside. Wound VAC remains in place. Good urine output. Dialysis held today. December 20: ICU. Per nephrology no dialysis today. 1 L fluid bolus given. J- tube was replaced over the wire by Dr. Ewing from surgery. On Precedex 0.6 mcg. FiO2 30 and a PEEP of 5 on the vent. RAYA drain putting out of around 100 cc per shift. at the bedside. Drainage through the abdominal incision wound. CT scan abdomen showed tube placement in the small bowel. Stable large right lower quadrant mass with a fluid level. December 21: ICU. No dialysis today. Patient started on trickle feeding through the J-tube yesterday. He started leaking around the J-tube site. Tube feeding was held. Dressings were placed. Wound VAC remains on the incision. Still having output through the RAYA drain. Patient remains on Precedex 0.4 mcg. FiO2 30 and a PEEP of 5. Sinus rhythm. at the bedside. December 22: ICU. Patient was seen this morning today by me. No dialysis today. Patient's and daughter at the bedside. FiO2 30 and a PEEP of 5. Sinus rhythm. Still having significant secretions through the tracheostomy tube. On Precedex 0.4 mcg. Getting D5W IV fluids. Tube feeding remains to be on hold since yesterday. Still output of RAYA drain. Awaiting input from surgery. Discussed with the and daughter. December 23: ICU. Saw the patient this afternoon. Because of good output of urine dialysis has been discontinued. Telemetry shows sinus rhythm. FiO2 30 and a PEEP of 5. RAYA output has been around 8200 cc an hour. Good urine output. Patient does have very slight movement of the limbs. Wound VAC is putting out about 20 cc per shift. Yesterday when trickle feeding was started patient's J- tube drainage also started leaking around the insertion site. Tube feeding was held. Patient remains on IV Zosyn and Precedex at 0.3 mcg. I had a very lengthy discussion with patient's daughter and at the bedside overall guarded prognosis. Later surgery spoke to the family, and then the nurse called me that family was wanting transferred to [facility]. I spoke to Dr. Irby. They felt they could not offer anything more at this point. I did call the [facility] transfer steam crane operator. Gave them the reason for transfer. Later in the ICU nurse informed me through [employer] that [facility] had declined the transfer. Total time spent today about 50 minutes with over 30 minutes of discussion. December 24: ICU. Patient is doing not too well. Sinus rhythm. Drips include norepinephrine and IV propofol. Surgery did put 2 stitches around the J-tube insertion site. Started on TPN today. FiO2 30 PEEP of 5. Patient became hypothermic put on a Manjit hugger. Also hypoglycemic. Decreased urine output. IV fluids increased. Patient's son was at the bedside. I did speak to patient's eldest daughter outside in the waiting room. Did tell the patient doing very poorly. I did try to call the on the phone number she has gone home. Started an IV antifungal today. December 26, 2023 73-year-old white male with history of chronic abdominal pain for the last 8 months has been treated with Protonix 40 mg daily for the last 3 months with no improvement. Patient had a 22 pound weight loss in the last [address] of the abdomen and pelvis 3 weeks ago showed thickening of the antral wall with pathological adenopathy posterior to the stomach suspicious of neoplasm. Today the patient underwent elective upper endoscopy to evaluate further, patient received IV sedation by anesthesia endoscope was inserted into the mouth, esophagus was intubated without any difficulty there was evidence of large amount of liquid and solid food noted in the stomach suggestive of gastric outlet obstruction. Scope could not be advanced through the pylorus, however in the prepyloric area there was a large superficial ulceration identified with multiple biopsies were done from this area. The body cardia and fundus could not adequately visualize because of large amount of retained food in the stomach. Scope was withdrawn back to the stomach and upon careful examination the mucosa of the antrum body and cardia as well as the fundus appeared normal. Procedure was being performed and biopsies were done patient threw up and subsequently became hypoxic there was clearly evidence of witnessed aspiration anesthesia intubated the patient, procedure was terminated, and the patient was transferred to the ICU, this consult was initiated. Patient is now on assist- control rate of 20 tidal volume 500 FiO2 70% PEEP of 10 ABG is pending, earlier ABG showed profound hypoxia patient is on propofol at 50 mcg/kg/min, next ABG is pending. Chest x-ray showed chronic changes without evidence of acute pulmonary disease. 12/27/2023 Patient is seen and evaluated with family at bedside; remains in the ICU intubated and mechanically ventilated. - ABG showed a pO2 of 99 pCO2 31 pH of 7.44. -- Remains on Eraxis daptomycin and Zosyn patient is intermittently requiring Dilaudid, Ativan does not seem to help his agitation and restlessness. -- Continues to have leakage around the jejunostomy tube, and patient is undergoing the J-tube exchange today. Family is at bedside, seems to be quite anxious about his overall condition, and I explained to the that we are doing the best we can considering his critical illness situation and critical illness polyneuropathy. Patient is profoundly weak, and weaning the patient from mechanical ventilation is almost impossible. At least not at this point yet WBC count is 10.9 hemoglobin is 8.1 basic metabolic profile is normal BUN is 46 creatinine 1.90 patient has been off hemodialysis since the . Chest x- ray continues to show stable findings with right upper lobe opacity and right lower lobe opacity and possibly a small right-sided pleural effusion ----Continue ventilatory support, now on IMV mode rate of 16 with pressure support of 14 Continue Precedex and use Dilaudid 0.5 mg every 2-3 hours as needed. Nutritional support patient is now on TPN, Possible J-tube changed today for J- tube malfunction Continue antibiotics including daptomycin and Zosyn, Eraxis was added by infectious disease 12/28/2023 the patient is seen and evaluated in room at bedside; continues to be afebrile, the patient is on the ventilator through the trach FiO2 is currently stable at 30% no significant pleural effusion clinically patient on requiring any pressor support still having drainage around his jejunostomy tube patient dialysis catheter has been discontinued. Patient white count normalized to 7.6, creatinine is 1.51 patient with pneumonia with a sputum showing Citrobacter and Pseudomonas aeruginosa, the patient sputum repeat is still growing Citrobacter and Pseudomonas sensitive to the Pseudomonas is pending continue with Zosyn -patient did have a positive blood culture with staph epi that was oxacillin resistant as the patient did have a PICC line and the dialysis catheter he is on daptomycin repeat blood culture currently growing oxacillin sensitive staph epi, the patient dialysis catheter has been discontinued Has been sent for the culture -patient also have significant excoriation around his jejunostomy tube site which is still leaking Eraxis was added which will be continued as the patient fever pattern has improved and the patient white count has normalized once again discussed with the nursing staff to apply Triad cream which was discussed yesterday but not applied and monitor clinical course closely 12/29/2023 Patient is seen and evaluated with family members at bedside; remains intubated and mechanically ventilated -- ABG showed a pO2 of 105 pCO2 31 pH of 7.45. Remains on Precedex; multiple antibiotics and antifungal including Eraxis daptomycin and Zosyn. -- chest x-ray is showing improvement in his right upper lobe airspace disease/pulmonary abscess. Right lower lobe seems about the same with chronic opacity and possibly some small right-sided pleural effusion. --Family is at bedside, patient is arousable but does not follow any instructions. Gets extremely restless and agitated easily hence patient is receiving Dilaudid which seems to be working much better for this patient than benzodiazepines --possibly transfer the patient to a select care specialty. 12/30/2023 Evaluated in follow-up in the intensive care unit. He remains on the mechanical ventilator. Status post tracheostomy. There has been a decrease in the amount of leakage around the J-tube site he continues on a gravity flow. TPN is infusing tube feedings remain on hold at this time. No bowel movement reported for the last 5 days. X-ray today reveals extensive pleural parenchymal opacities throughout the right with at least a moderate pleural effusion. Mild patchy densities left mid and lower lung are also similar. Blood work reveals a white blood cell count 11.5, hemoglobin 8.1, platelet count of 78, sodium 142, potassium 4.2, BUN of 42, creatinine of 1.22, Phos of 2.3, magnesium 1.9. Patient continues on IV anidulafungin IV Zerbaxa IV daptomycin. Patient is currently sedated with propofol and also Precedex which is currently on hold at this time. December 31, 2023: ICU. Patient continues to do poorly. On propofol 35 mics. Also getting IV Dilaudid and IV Ativan.. Telemetry shows sinus rhythm. J-tube feeding has been discontinued. Significant output through the Abarca bag and around the G-tube site. Patient also putting out through the RAYA drain on the right side. Getting TPN and lipids. Patient is antimicrobial include iv aniedulefungin, IV ceftolozane/tazobactam, IV daptomycin Advance care planning [October 31, 2023] I met with patient's at the bedside. Went through in detail with patient is overall very poor clinical status. Chances of any meaningful recovery next to minimal. I also did mention that patient in my opinion was not stable to go to chronic ventilator setting. I suggested comfort care/hospice. I did not feel and why all honesty that patient is benefiting any further from the treatment we are giving him in fact causing probably more suffering. I also spoke to patient's daughter outside in the waiting room. Total time spent about 50 minutes with over 30 minutes of discussion. Later I called Dr. Luther JIMENEZ the aircraft engine mechanic after he received a text that family was expressing that some physician expressed he was doing better and giving hope. I spoke to nurse Lemos in the evening and she and Dr. JIMENEZ did go and talk to patient's family at the bedside later. January 01, 2024: ICU. FiO2 30 and a PEEP of 5. Continues to have increased drainage at the G-tube site. Wound VAC in place over the incision. RAYA drain continues to put out excretions. Good urine output. Drips include IV propofol at 20 mics, also getting IV Ativan and Dilaudid. Patient also keeping getting TPN lipids. Spoke to the patient's at the bedside. No further questions. I did speak to Dr. Irby from general surgery. Hence it is both our impression again that changing the tube will not make any difference to the bigger picture. And probably futile. Dr. Irby will be speaking to the family today. David from social work assistant did ask about of family meeting. I did reiterate that I spoken at length to the a few times and also the daughter. Dr. Jimenez also spoke to the and Dr. Irby will be speaking with the today. Prognosis remains to be very poor. I did tell the in my opinion probably the patient is not r a candidate for long-term facility. Will aircraft engine mechanic Dr. Jimenez determine if the patient is a candidate for long-term chronic ventilator facility. January 02, 2024: ICU. FiO2 30 PEEP of 5. Telemetry sinus rhythm. Drips include propofol at 20 mics. Patient getting TPN lipids. Receiving 1 unit of packed red blood cell. Patient was having a breakdown around the tracheostomy stoma site. With a cuff leak. G-tube site is continues to have increasing output. Wound VAC in place. RAYA drains also having increasing output. Patient sister and daughter from [place] from out of town. Earlier they spoke at length with Dr. alford from general surgery. Prognosis remains poor. January 03, 2024: ICU. FiO2 30 PEEP of 5. On propofol. 50 mics. Getting TPN lipids. Sinus rhythm. Wound VAC in place. Drainage around the j-tube site. RAYA drain continues to drain. Patient somewhat sedated. at the bedside. Later social work assistant David inform me that the surgical team Dr. Irby has suggested possible you have [facility], to which family is trying to obtain transferred to. Per Dr. Jimenez note patient has been decline by long-term care twice. Prognosis remains poor. at the bedside. Had no questions. Brother Nathan is present. January 04, 2024: ICU. FiO2 30 PEEP of 5. Propofol was held this morning. Getting TPN lipids. Sinus rhythm. Wound VAC remains in place. Continues to have drainage around the J-tube. RAYA drain continues to have output. at the bedside. She had no questions. Antibiotics in place. January 05, 2024: ICU. FiO2 30 PEEP of 5. Audibly sounding congested. Getting TPN lipids. Sinus rhythm. Wound VAC in place. Drainage around J-tube site. RAYA output continues. No family at bedside. Getting antibiotics. Lethargic January 06, 2024: ICU. FiO2 30 PEEP of 5. Patient is been off propofol since yesterday. Does move his head about. Try to open his eyes sometimes. Sinus rhythm. Blood pressure is running high yesterday. Started on Cleviprex. Hydralazine is being added. Continue to get TPN lipids. J-tube site remains excoriated. Wound VAC in place. RAYA output about 40 to 50 cc is a 12-hour shift. Patient elder daughter at the bedside. Eraxis was discontinued on January 02. Daptomycin is being discontinued by ID. Continue ceftolo'szone. CT abdomen pelvis done today: 3.1 cm organized fluid collection within the rectovesicular space concerning for abscess. No change in right upper lung 4.9 cm fluid collection with a fluid level. For possible pulmonary abscess. Moderate size right lung base multiloculated hydropneumothorax possibly abscess. Additional areas of air bronchograms. January 07, 2024: ICU. FiO2 30 PEEP of 5. Patient was taken down for pigtail drainage of the right lung abscess. About 200 cc of pus was obtained. Nurse informed me when they told him about for the procedure a lot of pus gushed out from the tracheostomy site. Dr. Love at the bedside did a bronchoscopy. Some pus was aspirated. No obvious fistula was noted. Patient is being back on Cleviprex drip. TPN lipids. January 08, 2024: ICU. Patient was having severe bouts of coughing. Unable to maintain ventilation. Patient was put on Nimbex drip and propofol drip. TPN lipids continue. Has a right chest wall pigtail catheter 90 cc output in 12- hour shift. Drainage from around the J-tube site. RAYA drain continues Ahmet to have an output. Abdominal wound is high since with the wound VAC in place. Patient sedated. January 09, 2024: ICU. Patient is off propofol and Cleviprex. Does open eyes. RAYA drain. About 40 cc last 24 hours. J-tube site continues to have increased output. Requiring dressing change every so often. Wound VAC in place. Patient getting Dilaudid and Ativan. Telemetry shows sinus rhythm. 40 cc out of the pigtail drainage. Patient started on ciprofloxacin and tobramycin. Remains on TPN and lipids. Patient's eldest daughter and at the bedside. No new questions. January 10, 2024: ICU. Overnight patient had become asynchronous. Had to be put on Precedex drip. Hemoglobin dropped down to 6.6. Monitor blood ordered. RAYA output about 100 cc last 24 hours. Wound VAC remains in place. TPN lipid continues. Patient also has a leak in the right pigtail catheter. Sinus rhythm. Continues to have increased secretion at the G-tube site. Ventilator FiO2 30 and a PEEP of 5. at the bedside. Had no further questions. January 11, 2024: ICU. Patient remains on IV Precedex. TPN.'s RAYA output over 30 cc last 24 hours. Wound VAC remains in place. Sinus rhythm. FiO2 30 PEEP of 5. Pigtail with very little output. Spoke to Dr. Love who only spoke to the patient's at length. Gnosis poor. When I walked in patient's 2 daughters and the present. is very tearful crying hugging the patient. The daughter had no further questions January 12, 2024 Ahmet: ICU. Continues on IV Precedex. Getting TPN lipids. Wound VAC in place. Sensitive. FiO2 30 and a PEEP of 5. Patient's at the bedside. Had no questions. January 13, 2024: ICU. FiO2 30 PEEP of 5. Remains on Precedex 0.8 mg. Eyes open. Sometimes does track with head. Not moving limbs. Some decrease in output from the G-tube site. Wound VAC putting out about 100 cc every 12 hours. RAYA drain about 100 cc every [address] Russ met with the family earlier today. Patient's been made DNR. Telemetry sinus rhythm. Patient's and daughter at bedside. They have no questions January 14, 2024: ICU. FiO2 30. PEEP of 5. Patient is has eyes open and tracking. Urine output about 100 cc an hour. NG site output looks like gastric contents. RAYA site about 50 cc in the last 12 hours. Telemetry sinus rhythm. and daughter have asked for hospice consultation for informational visit. They want to use [facility]. I sat with them and the nurse and a full expression of the hospice involved involved. Several questions answered. Daughter does express that she would like to take the patient home. The other sibling will be coming on from [place] on Saturday. They want to hold on at least until then. January 15, 2024: ICU. FiO2 30 and a PEEP of 5. Getting CPAP today. Asynchronous better. J-tube site continues to have increase secretions. Sinus rhythm. Awake. Does move his head possibly to command. Remains on Precedex. Getting Dilaudid. Fair urine output. Has a air leak in the pigtail. Minimal output through the chest tube. RAYA drain continues to have an output. at the bedside. At Active Medications Acetaminophen (Acetaminophen Suppository 650 Mg Supp) 650 mg RECTAL Q6HR PRN PRN Reason: Fever Albuterol/Ipratropium (Ipratropium-Albuterol 3 Ml Neb) 3 ml INHALATION RT-QID [facility] Last Admin: 01/15/24 07:29 Dose: 3 ml Albuterol/Ipratropium (Ipratropium-Albuterol 3 Ml Neb) 3 ml INHALATION RT-Q2H PRN PRN Reason: Shortness Of Breath Or Wheezing Last Admin: 01/08/24 04:01 Dose: 3 ml Bisacodyl (Bisacodyl 10 Mg Supp) 10 mg RECTAL DAILY [facility] Last Admin: 01/15/24 08:27 Dose: 10 mg Dextrose/Water (Dextrose 50% Syringe 50 Ml) 25 ml IVP PER PROTOCOL PRN; Protocol PRN Reason: Hypoglycemia Last Admin: 01/03/24 06:18 Dose: 25 ml Dextrose/Water (Dextrose 50% Syringe 50 Ml) 50 ml IVP PER PROTOCOL PRN; Protocol PRN Reason: Hypoglycemia Last Admin: 12/25/23 18:03 Dose: 50 ml Hydralazine HCl (Hydralazine Hcl 20 Mg/Ml 1 Ml Vial) 10 mg IVP Q6HR PRN PRN Reason: SBP >140 Last Admin: 01/07/24 23:28 Dose: 10 mg Hydromorphone HCl (Hydromorphone 1 Mg/Ml 1 Ml Syringe) 1 mg IVP Q2HR PRN PRN Reason: Breakthrough Pain Last Admin: 01/15/24 08:18 Dose: 1 mg Fat Emulsion Intravenous 250 (ml/ IV Solution) 250 mls @ 21 mls/hr IV [id number] [facility] Last Admin: 01/14/24 10:26 Dose: 21 mls/hr Ciprofloxacin/Dextrose 400 mg/ (IV Solution) 200 mls @ 200 mls/hr IVPB Q8H [facility] Last Admin: 01/15/24 05:09 Dose: 200 mls/hr Dexmedetomidine HCl 400 mcg/ (IV Solution) 100 mls @ 5.2 mls/hr IV .[id number] [facility]; Protocol Last Admin: 01/15/24 10:31 Dose: 1.3 mcg/kg/hr, 33.8 mls/hr Fluconazole/Sodium Chloride (200 mg/ IV Solution) 100 mls @ 100 mls/hr IVPB DAILY [facility]; Protocol Last Admin: 01/15/24 10:21 Dose: 100 mls/hr Parenteral Vitamin Supplement 10 ml/ Zinc/Copper/Manganese/Selenium 1 ml/ Sodium Acetate 30 meq/ Magnesium Sulfate 1 gm / Calcium Gluconate 0.5 gm/Potassium Phosphate 9 mmol/Potassium Acetate 10 meq/Amino Acids/Dextrose 1,041 mls @ 90 mls/hr IV .BY DURATION [facility] Last Admin: 01/15/24 10:23 Dose: 90 mls/hr Sodium Acetate 30 meq/Magnesium Sulfate 1 gm/Calcium Gluconate 0.5 gm/Potassium Phosphate 9 mmol/Potassium Acetate 10 meq/Amino Acids/Dextrose 1,030 mls @ 90 mls/hr IV .BY DURATION [facility] Last Admin: 01/14/24 23:02 Dose: 90 mls/hr Ceftolozane/Tazobactam 3 gm/ (Sodium Chloride) 100 mls @ 100 mls/hr IV Q8HR [facility]; Protocol Last Admin: 01/15/24 08:27 Dose: 100 mls/hr Insulin Aspart (Insulin Aspart (Novolog) 100 Unit/Ml Vial) 0 unit SQ 0000,0600,1200,1800 [facility]; Protocol Last Admin: 01/15/24 06:26 Dose: 4 unit Levetiracetam (Levetiracetam Iv 500 Mg/5 Ml Vial) 250 mg IVP Q24HR [facility] Last Admin: 01/15/24 08:27 Dose: 250 mg Miscellaneous Information (Phosphorus Replacement Protoco 1 Each Misc) 1 each MISCELLANE DAILY PRN; Protocol PRN Reason: Per Protocol Miscellaneous Information (Potassium Replacement Protocol 1 Each Misc) 1 each MISCELLANE DAILY PRN; Protocol PRN Reason: Per Protocol Miscellaneous Information (Magnesium Replacement Protocol 1 Each Misc) 1 each MISCELLANE DAILY PRN; Protocol PRN Reason: Per Protocol Multi-Ingred Cream/Lotion/Oil/Oint (Hydrophilic Cream 180 Gm Tube) 1 applic TOPICAL BID [facility]; Protocol Last Admin: 01/15/24 08:28 Dose: 1 applic Multi-Ingredient Ointment (Zinc Oxide 20% Oint 28.4 Gm Tube) 1 applic TOPICAL BID PRN; Protocol PRN Reason: Skin Irritation Naloxone HCl (Naloxone 0.4 Mg/Ml 1 Ml Vial) 0.2 mg IV Q2M PRN PRN Reason: Opioid Reversal Pantoprazole Sodium (Pantoprazole 40 Mg/10 Ml Vial) 40 mg IVP BID [facility] Last Admin: 01/15/24 08:27 Dose: 40 mg Petrolatum (Zinc Oxide Paste (Z-Guard) 1 Applic) 1 applic TOPICAL BID [facility]; Protocol Last Admin: 01/15/24 08:29 Dose: 1 applic Past medical history to include: GERD Social history: . No smoking. Physical examination: VITAL SIGNS: 98, 72, 24, 134 x 89, 99% on ventilator GENERAL: Eyes open, tracking, TPN and lipids EYES: Pupils equal. , tracking Conjunctiva edouard l. HEENT: External appearance of nose and ears normal, tracheostomy-. NECK: JVD unable to assess; masses not palpable. HEART: First and second heart sounds are normal; edema, present LUNGS: Respiratory rate increased, decreased breath sounds right chest wall pigtail catheter ABDOMEN: Soft, some tenderness. Liver spleen not palpable, no masses palpable..jejunostomy tube-dressing in place, . RAYA drain. Incision with stitches with - wound VAC PSYCH: Unable to assess NEURO: Eyes open. Attempts to talk. Tracking. INVESTIGATIONS, reviewed in the clinical context: January 14: White count 17 hemoglobin 7.9 platelets 310 potassium 3.8 creatinine 0.76 January 13: White count 15.3 hemoglobin 8.3 platelets 325 sodium 130 potassium 4.4 creatinine 0.77 January 11: White count 6.2 hemoglobin 8.1 platelets 278 potassium 4 creatinine 0.8 January 10: Sodium 132 potassium 3.9 creatinine 0.86 January 8: White count 15.4 hemoglobin 6.7 platelets 188 January 7: White count 15.3 hemoglobin 7.3 platelets 176 potassium 3.6 creatinine 0.89 November 5: White count 11.4 hemoglobin 7.4 potassium 3[address] abdomen pelvis [January 05]: 3.1 cm organized fluid collection within the rectovesicular space concerning for abscess. No change in right upper lung 4.9 cm fluid collection with a fluid level. For possible pulmonary abscess. Moderate size right lung base multiloculated hydropneumothorax possibly abscess. Additional areas of air bronchograms. January 05: White count 10.6 hemoglobin 7.6 platelets 111 sodium 137 potassium 3.5 BUN 44 creatinine 0.95 January 03: White count 13.4 hemoglobin 8.1 platelets 95 potassium 5.2 creatinine 1.1 albumin 1.8 Sputum culture [December 24] Citrobacter freundii, Pseudomonas aeruginosa Blood culture [December 24] Staphylococcus pettenkoferi December 24: White count 1.5 hemoglobin 8.2 platelets 106 potassium 3.8 BUN [address] chest abdomen without contrast [December 16] right upper lung cavitary lesion with air-fluid level in the posterior aspect and a larger cavitary lesion possibly within the lung parenchyma itself. Extending down towards the diaphragm additional airspace opacities in the left lung base. December 09: White count 26.1 hemoglobin 8.6 platelets 154 potassium 4.1 BUN 86 creatinine 3.31. Hemoglobin this morning was 6.6 prior to transfusion EEG-evidence of generalized cerebral dysfunction and sporadic intermittent higher amplitude sharply contoured waves mainly bifrontal. Showing cortical irritability. 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 Serosal fibrous adhesions. Viable margins. Sputum culture: [November 25]: Citrobacter freundii. Pseudomonas aeruginosa November 20: White count 14.4 hemoglobin 8.8 platelets 229 potassium 4.1 BUN [address] scan abdomen [November 19] possible small bowel obstruction Stool: C. difficile negative November 15: WBC 13 hemoglobin 7.7 platelets 248 potassium 4.3 creatinine 0.87 2D echo: EF 55 to 60%. Kidneys bladder: Unremarkable November 13: White count 12 hemoglobin 6.9 platelets 276 potassium 4.4 creatinine 1.21 magnesium 1.8 iron 6 TIBC 365% saturation 1.64 transferrin 261 ferritin 34.6 B12 569 folate 4.4 November 11: Creatinine 0.86 EGD: Large amount of retained solid liquid food noted in the stomach. Large superficial gastric antral ulceration involving most of the antrum extending into the pylorus causing pyloric stenosis. Biopsies were obtained. Chest x-ray film personally reviewed by me-scattered infiltrates Assessment plan: -Aspiration and gram-negative bacterial pneumonia a bilateral initially from retained gastric contents mostly food and liquids, causing acute hypoxic respiratory failure: On presentation: Subsequent bacterial pneumonia sputum culture November 25: Citrobacter freundii, Pseudomonas aeruginosa. December 13: Klebsiella oxytoca, Pseudomonas aeruginosa IV meropenem-, IV Zosyn.IV ceftolozane/tazobactam, IV daptomycin, tobramycin- all discontinued Currently getting IV ciprofloxacin. T resumed ceftolozane tazobactam. -Patient became asynchronous with the ventilator. On Precedex drip -Breakdown of tracheostomy stoma site. Dressing in place Being followed by aircraft engine mechanic -Sepsis with septicemia from above Patient received multiple antibiotics -Right l lung abscess, pigtail catheter placed January 07, 2024. Initially about 200 cc of pus obtained. During the procedure large amount of pus poured out of the tracheostomy site when patient was rolled on the left side. Status post bronchoscopy with some lavage on 01/07/2024 - lung abscess larger 1 on the right side-patient cultures are growing Pseudomonas and Klebsiella oxytoca: Slow to respond , Received other antibiotics. Currently on Levaquin and tobramycin -Acute pulmonary edema and fluid overload from hypoalbuminemic state and fluids from IV.:: Has been getting Lasix and dialysis: Both held -Altered mentation. Possibly encephalopathy. Could be delirium.: Not improving CT brain [December 06] nothing acute Neurology following EEG-evidence of generalized cerebral dysfunction and sporadic intermittent hig her amplitude sharply contoured waves mainly bifrontal. Showing cortical irritability. Keppra was started on December 07 -Critical care poly- Pedro neuropathy: Slow to respond PT OT -Gallstones, asymptomatic -Small l bowel perforation at site of jejunostomy tube tip with balloon..: Portion of small bowel resected. On November 24. New J-tube was placed.- drainage to gravity:-Now discontinued December 19: J-tube blocked. J-tube replaced on December 20 over wire December 21: Leaking around the J-tube site. Feeding held December 23: J feeding was started yesterday evening but again started leaking increasingly around the J-tube site-feeding held again December 24: J-tube feeding has been held. Patient is currently having increased drainage from the J-tube site -Acute kidney injury. Possible ATN from hypotensive shock: Resolved Renal ultrasound unremarkable. Started on renal replacement therapy on November 28. Last hemodialysis on December 17. Being followed by an nephrology. Good urine output. -Nutrition Jejunostomy tube placed November [address] Ewing Received TPN-this was discontinued. TPN lipids restarted on December 24 -Lung abscess, not improving Antibiotics to continue. Pulmonary and ID following -Midline abdominal incision wound dehiscence Wound VAC placed -Acute recurrent atrial fibrillation-converted to sinus rhythm Received IV amiodarone. Cardiology following Lopressor -Acute hypoxic respiratory failure from aspiration pneumonia, status post ventilator assisted: Reintubated November 25. FiO2 35 PEEP of 5 Tracheostomy tube-by Dr. eZpeda on December 09 -Septic shock, recovered -Hypertension, recurrent Had received Cleviprex. Hydralazine added -Intermittent hypotension: Corrected Intermittent use of Levophed. 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 Also anemia of blood draw. Iron deficiency anemia Received total of 6 units of blood IV iron. -Severe thrombocytopenia. Would consider coagulation disorder secondary to infection., In the setting of underlying lymphoma.: Fluctuating with infection Hematology following. -Acute blood loss anemia, -Sacral stage II decub ulcer Dressing in place -Hypokalemia, multiple causes -Hypoglycemia -GERD PPI -Acute diarrhea secondary to tube feeding.: Resolved C. difficile ruled out. -Large superficial gastric antral ulceration involving the gastric antrum extending into the pylorus with gastric outlet obstruction. 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 -DNR made on January 12 On Precedex. IV ciprofloxacin and IV tazobactam. TPN lipids. Prognosis remains guarded. Air leak. Minimal output through the pigtail catheter. Plan for hospice when patient's 2 daughters arrive from [place]. Past Medical History Past Medical History: GERD/Reflux History of Any Multi-Drug Resistant Organisms: None Reported Past Surgical History: Heart Catheterization Additional Past Surgical History / Comment(s): colonsocopy,spinal injection, Past Anesthesia/Blood Transfusion Reactions: No Reported Reaction Past Psychological History: No Psychological Hx Reported Smoking Status: Never smoker Past Alcohol Use History: None Reported Past Drug Use History: None Reported
[2024-01-15 11:44] LABS: Glucose,Whole Blood 165 mg/dL (70-110)
[2024-01-15] MEDS ORDERED: TOBRAMYCIN TROUGH DUE 1 EACH MISC MISCELLANE ONE (13:30)
[2024-01-15 17:30] LABS: Glucose,Whole Blood 190 mg/dL (70-110)
--- NOTE | 2024-01-15 20:04 | P.PN ---
Subjective Progress Note Date: 01/15/24 Patient seen and examined at bedside. Resting comfortably. Daughter at bedside. No acute events. Objective - Vital Signs Vital signs: Vital Signs Temp 98.3 F 01/15/24 16:00 Pulse 78 01/15/24 19:00 Resp 33 H 01/15/24 19:00 BP 142/96 01/15/24 19:00 Pulse Ox 98 01/15/24 19:00 FiO2 30 01/15/24 19:52 Intake & Output 01/15/24 01/15/24 01/16/24 06:59 18:59 06:59 Intake Total 4880.342 6787.098 95 Output Total 1190 1385 60 Balance 296.537 216.098 35 Weight 100.7 kg Intake: IV 55 1140 95 0.9 Normal Saline @ KVO 55 60 5 TPN 1080 90 Intake, IV Titration 1431.537 461.098 Amount Dexmedetomidine/0.9% NaCl 390.537 461.098 (Pmx) 400 mcg In Empty Bag 1 bag @ 0.2 MCG/KG/HR 5.2 mls/hr IV .[id number] [facility] Rx#:[id number] Mvi, Adult No.4 with Vit 1041 K 10 ml Trace (Conc-1Ml/ Dose) 1 ml Sodium Acetate 30 meq Magnesium Sulfate gm 1 gm Calcium Gluconate 0.5 gm Potassium Phosphate 9 mmol Potassium Acetate 10 meq In Amino Acids 5 %/ Dextrose 20 % 1,000 ml @ 90 mls/hr IV .BY DURATION [facility] Rx#:[id number] Output: Chest Tube Drainage 0 50 0 Chest Tube Right 0 50 0 Drainage 0 60 0 Medial Abdomen 0 0 Right Abdomen 0 60 0 Right Upper Posterior 0 0 Chest Urine 1190 1275 60 Other: Voiding Method Indwelling Catheter Indwelling Catheter Indwelling Catheter ABP, PAP, CO, CI - Last Documented Arterial Blood Pressure 173/76 - Constitutional General appearance: Present: no acute distress - Gastrointestinal Gastrointestinal Comment(s): RAYA drain in place with output, J-tube with some surrounding drainage. - Labs CBC & Chem 7: 01/15/24 05:21 01/15/24 05:21 Labs: Abnormal Lab Results - Last 24 Hours (Table) 01/15/24 01/15/24 01/15/24 Range/Units 00:16 05:21 05:21 WBC 17.0 H (3.8-10.6) k/uL RBC 2.69 L (4.30-5.90) m/uL Hgb 7.9 L (13.0-17.5) gm/dL Hct 25.1 L (39.0-53.0) % RDW 17.2 H (11.5-15.5) % Sodium 130 L (137-145) mmol/L BUN 40 H (9-20) mg/dL Glucose 193 H (74-99) mg/dL POC Glucose (mg/dL) 214 H (70-110) mg/dL Calcium 7.1 L (8.4-10.2) mg/dL 01/15/24 01/15/24 01/15/24 Range/Units 06:23 11:43 17:27 WBC (3.8-10.6) k/uL RBC (4.30-5.90) m/uL Hgb (13.0-17.5) gm/dL Hct (39.0-53.0) % RDW (11.5-15.5) % Sodium (137-145) mmol/L BUN (9-20) mg/dL Glucose (74-99) mg/dL POC Glucose (mg/dL) 221 H 165 H 190 H (70-110) mg/dL Calcium (8.4-10.2) mg/dL Assessment and Plan Plan: Patient awaiting hospice. No plan for any further surgical intervention.
[2024-01-15 23:09] LABS: Glucose,Whole Blood 223 mg/dL (70-110)
[2024-01-16 05:31] LABS: Glucose,Whole Blood 173 mg/dL (70-110)
--- NOTE | 2024-01-16 07:29 | XR ---
EXAMINATION TYPE: XR chest 1V portable DATE OF EXAM: 01/16/2024 5:15 AM COMPARISON: 01/15/2024 CLINICAL INDICATION: Male, 73 years old with history of trach, TECHNIQUE: XR chest 1V portable view(s) obtained. FINDINGS: The heart size is normal. The pulmonary vasculature is normal. Right apical thickening. 3 present. Mild infiltrates at the left days. There is a pleural effusion on the right. There is a tracheostomy tube in the midline. Drainage catheter is on the right. Port is present on th e right with the tip in the proximal right atrium PICC line enters on the left the tip in the distal superior vena cava region. IMPRESSION: 1. Bibasilar infiltrates, stable. 2. Lines and catheters discussed above [facility], , 01/16/2024 7:26 AM
[2024-01-16 07:30] LABS: Anisocytosis Slight; Basophils # (A) 0.1 k/uL (0-0.2); Basophils % (A) 1 %; Eosinophils # (A) 0.2 k/uL (0-0.7); Eosinophils % (A) 1 %; HCT 24.3 % (39.0-53.0); Hypochromasia Marked; Lymphocytes # (A) 2.2 k/uL (1.0-4.8); Lymphocytes % (A) 18 %; MCH 29.3 pg (25.0-35.0); MCHC 26.8 g/dL (31.0-37.0); Macrocytosis Marked; Mean Platelet Volume 8.1; Monocytes # (A) 0.8 k/uL (0-1.0); Monocytes % (A) 7 %; Neutrophils # (A) 8.8 k/uL (1.3-7.7); Neutrophils % (A) 72 %; Platelet Count 291 k/uL (150-450); RBC 2.22 m/uL (4.30-5.90); RDW 17.7 % (11.5-15.5); WBC 12.3 k/uL (3.8-10.6)
[2024-01-16 07:41] LABS: HGB 6.5 gm/dL (13.0-17.5); MCV 109.3 fL (80.0-100.0)
[2024-01-16 11:23] LABS: Glucose,Whole Blood 191 mg/dL (70-110)
--- NOTE | 2024-01-16 12:52 | P.PN ---
Subjective Progress Note Date: 01/16/24 Principal diagnosis: Acute hypoxic respiratory failure requiring intubation mechanical ventilation secondary to aspiration. This is a 73-year-old white male with history of chronic abdominal pain for the last 8 months has been treated with Protonix 40 mg daily for the last 3 months with no improvement. Patient had a 22 pound weight loss in the last [address] of the abdomen and pelvis 3 weeks ago showed thickening of the antral wall with pathological adenopathy posterior to the stomach suspicious of neoplasm. Today the patient underwent elective upper endoscopy to evaluate further, patient received IV sedation by anesthesia endoscope was inserted into the mouth, esop hagus was intubated without any difficulty there was evidence of large amount of liquid and solid food noted in the stomach suggestive of gastric outlet obstruction. Scope could not be advanced through the pylorus, however in the prepyloric area there was a large superficial ulceration identified with multiple biopsies were done from this area. The body cardia and fundus could not adequately visualize because of large amount of retained food in the stomach. Scope was withdrawn back to the stomach and upon careful examination the mucosa of the antrum body and cardia as well as the fundus appeared normal. Procedure was being performed and biopsies were done patient threw up and subsequently became hypoxic there was clearly evidence of witnessed aspiration anesthesia intubated the patient, procedure was terminated, and the patient was transferred to the ICU, this consult was initiated. Patient is now on assist- control rate of 20 tidal volume 500 FiO2 70% PEEP of 10 ABG is pending, earlier ABG showed profound hypoxia patient is on propofol at 50 mcg/kg/min, next ABG is pending. Chest x-ray showed chronic changes without evidence of acute pulmonary disease. 01/10/2024, the patient is on low-dose Precedex. Currently comfortable, sensitive to mechanical ventilator. Output from the pigtail has dropped and the patient continues to have a positive airleak. The chest x-ray shows bilateral consolidation worse on the right and there is a small right apical pneumothorax. Pigtail catheter is in a good location. Blood gas showed a pH of 7.48 with a pCO2 of 35 and a pO2 of 83. He is on assist-control mode with rate of 20, tidal volume of 600, FiO2 30% with a PEEP of 5. RAYA drain output is serosanguineous. TPN is at 90 cc an hour. Fluid balance is -700 cc. The white cell count is at 15.4, hemoglobin is at 6.7 and the patient was given a unit of packed RBC and a platelet count is 188. Electrolytes show a BUN of 46 with a creatinine of 0.7, sodium of 135, potassium level of 3.3. Antibiotics has been modified to a combination of ciprofloxacin and tobramycin as the patient showed quinolone sensitive Pseudomonas in the sputum and in the drain the abscess from the right lung. 01/11/2024, the patient is being seen for a follow-up. Patient is currently on low-dose Precedex at 0.2 mcg/kg/min. Calm and comfortable, no significant coughing. Remains on the mechanical ventilator./On the same vent setting which includes assist-control of 20, tidal volume of 600, FiO2 30% with a PEEP of 5. Chest x-ray shows a right apical pneumothorax, extensive consolidation of the right lung and some limited consolidation in the left and the catheter is in place with purulent output. There is also possibility through the pigtail catheter. Tracheostomy tube is in good location. Remains on tobramycin and ciprofloxacin. The white cell count of 13.6, hemoglobin 8.4 and platelet count is at 208. Blood gas from today showed a pH of 7.48 with a pCO2 of 33 and pO2 of 93. Sodium is at 134, potassium is at 3.7, BUN is 44 with a creatinine of 0.8. LFTs are normal and the patient has an alkaline phosphatase of 233 as the patient continues to receive TPN for nutritional support. Triglyceride levels at 187. Otherwise, no other significant changes condition. Cardiac rhythm remains sinus. The patient is producing adequate amount of urine output. Extremely debilitated, extremely weak, J-tube is not functional and there is leak around the J-tube. The patient was seen again by general surgery and there is no plan to exchange the J-tube. Concern of some leak around the J-tube and based on that an ostomy appliance will be applied around the J-tube. On 01/12/2024, clinically unchanged, remains on Precedex at 0.7 mcg/kg/h. Remains on TPN for nutritional support. Remains on same ventilator settings with assist-control mode rate of 20, tidal volume of 500, FiO2 30% with a PEEP of 5. No blood gases are available from today. Repeat chest x-ray shows stable findings. Stable right apical pneumothorax. Consolidation involving the right lung and the left base remains unchanged. Sputum sample was positive for Pseudomonas aeruginosa and the patient remains on a combination of ciprofloxacin and tobramycin. The patient has positive air leak in his pigtail catheter and total amount of output overnight and over the past 12 hours has been in the order of 80 cc. Extremely debilitated. Extremely weak. Not coherent although arousable. evaluated today on 01/13/2024, remains in the ICU, patient remains intubated and mechanically ventilated, he is on volume control plus with tidal volume of 500 rate 20 FiO2 30% and PEEP of 5 ABG showed a pO2 of 90 pCO2 35 pH of 7.45. No changes were made in ventilator settings. Patient remains on Precedex at 0.8 mcg/kg/h remains on TPN at 90 cc/h patient remains on multiple antibiotics including Cipro fluconazole and tobramycin patient has resistant Pseudomonas in the sputum. Continues to have an air leak in the right-sided chest tube and he has a pigtail catheter in place. Chest x-ray continues showed significant airspace disease bilaterally. Patient is arousable but does not follow any instructions, he is a bit encephalopathic. Family is at bedside, and I had a long discussion with the family regarding his condition and prognosis.WBC count today 6.2 hemoglobin 8.1. Basic metabolic profile is normal renal profile is normal bicarb is 20. Albumin is 1.9. Patient is receiving Dilaudid intermittently for agitation. And that seems to calm down along with Precedex. Patient was seen today on 01/14/2024, patient remains in the ICU, intubated and mechanically ventilated, on volume control plus mode of mechanical ventilation with rate of 20 tidal volume 500 FiO2 30% and PEEP of 5 ABG showed a pO2 of 43 pCO2 of 40 pH of 7.3, however I believe there is an error in the pO2 since his O2 saturation is presently 100%. Patient remains on Precedex, 1.2 mcg/kg/h is also on TPN at 90 cc/h antibiotics were changed he is now on Zerbaxa Cipro and fluconazole. Patient had a -2.8 L over the last 24 hours, today he is awake, follows simple instructions. Remains intubated and mechanically ventilated, and noted to be a bit tachypneic. Patient is not requiring any pressors not requiring any propofol, hemodynamically stable, no chest x-ray was done today, continues to have air leak in the Pleur-evac. WBC is 15.3 hemoglobin 8.3, basic metabolic profile is normal renal profile is normal Patient was evaluated today on 01/15/2024, remains in the ICU, remains intubated and mechanically ventilated. Remains on volume control plus mode of mechanical ventilation with a rate of 20 tidal volume 500 FiO2 30% and PEEP of 5 No ABG was done today. Patient is awake, he looks comfortable, has I will give him a trial of pressure support of 14 and CPAP today. Continues to have multiple drips Precedex, at 1.3 mcg/kg/h he is also on TPN at 90 cc/h receiving Dilaudid 1 mg every 2 hours as needed patient is on the backside, ciprofloxacin, and fluconazole. Patient is to be placed on hospice possibly in the next 24 hours, family discussed his condition with hospice staff apparently yesterday. And the plan is to proceed with hospice on . Continues to have air leak from the pigtail catheter/pleural VAC. Chest x-ray continues to show bilateral airspace disease specially in the right lower lobe and left lower lobe, sputum has been positive for resistant Pseudomonas WBC count is 17 hemoglobin 7.9 basic metabolic profile is normal BUN is 40 creatinine 0.76 Patient was reevaluated today on 01/16/2024, patient remains in the ICU, intubated and mechanically ventilated, he is on pressure control mode of mechanical ventilation, with rate 20, pressure control of 15, inspiratory time of 0.8, FiO2 30% and PEEP of 5. Hemoglobin today is down to 6.5 WBC count is 12.3 hematocrit is 24.3 family is now requesting to have hospice at home, however the patient will not be able to make it home unless we could temporarily arrange for portable ventilator, will look into the possibility of doing so. In the meantime patient remains on treatment for his infections an Pseudomonas in the sputum, and in the pleural effusion fluid.d patient remains on TPN remains on Precedex at 1.5 mcg/kg/h. Patient is extremely frail, ill looking, chronically ill, and extremely weak Objective - Vital Signs Vital signs: Vital Signs Temp 97.9 F 01/16/24 11:00 Pulse 79 01/16/24 11:30 Resp 24 01/16/24 11:00 BP 132/93 01/16/24 11:00 Pulse Ox 99 01/16/24 11:00 FiO2 30 01/16/24 10:57 Intake & Output 01/15/24 01/16/24 01/16/24 18:59 06:59 18:59 Intake Total 2631.098 3566.627 670 Output Total 1385 1275 1125 Balance 9474.382 6987.627 -455 Weight 100.2 kg Intake: IV 1140 2140 570 0.9 Normal Saline @ KVO 60 60 20 Ceftolozane/Tazobactam 3 1000 100 gm In Sodium Chloride 0.9 % 100 ml @ 100 mls/hr IV Q8HR [facility] Rx#:[id number] TPN 1080 1080 450 Intake, IV Titration 2077.651 4898.627 100 Amount Dexmedetomidine/0.9% NaCl 461.098 385.627 100 (Pmx) 400 mcg In Empty Bag 1 bag @ 0.2 MCG/KG/HR 5.2 mls/hr IV .[id number] [facility] Rx#:[id number] Mvi, Adult No.4 with Vit 1041 K 10 ml Trace (Conc-1Ml/ Dose) 1 ml Sodium Acetate 30 meq Magnesium Sulfate gm 1 gm Calcium Gluconate 0.5 gm Potassium Phosphate 9 mmol Potassium Acetate 10 meq In Amino Acids 5 %/ Dextrose 20 % 1,000 ml @ 90 mls/hr IV .BY DURATION [facility] Rx#:[id number] Sodium Acetate 30 meq 1030 Magnesium Sulfate gm 1 gm Calcium Gluconate 0.5 gm Potassium Phosphate 9 mmol Potassium Acetate 10 meq In Amino Acids 5 %/ Dextrose 20 % 1,000 ml @ 90 mls/hr IV .BY DURATION [facility] Rx#:[id number] Output: Chest Tube Drainage 50 0 200 Chest Tube Right 50 0 200 Drainage 60 0 100 Medial Abdomen 0 0 0 Right Abdomen 60 0 100 Right Upper Posterior 0 0 0 Chest Urine 1275 1275 825 Other: Voiding Method Indwelling Catheter Indwelling Catheter Indwelling Catheter # Bowel Movements 1 ABP, PAP, CO, CI - Last Documented Arterial Blood Pressure 173/76 - Exam General: Revealed 73-year-old white male on mechanical ventilation, pressure control mode of mechanical ventilation on Precedex, Skin: Skin is warm and dry and no rashes or lesions are noted. Eye: Pupils are equal, round and reactive to light, extra-ocular movements are intact; there is normal conjunctiva bilaterally. Ears, nose, mouth and throat: There are moist mucous membranes and no oral lesions. Neck: The neck is supple, there is no tenderness or JVD. Tracheostomy is intact. Cardiovascular: There is a regular rate and rhythm. No murmur, rub or gallop is appreciated. Respiratory: Crackles at the bases, no rhonchi no wheezes, right-sided pigtail catheter is noted, evidence of air leak noted. Gastrointestinal: no rebound, no guarding, no bowel sounds, wound VAC is noted jejunostomy tube is noted, surgery is considering removing the jejunostomy tube altogether. Musculoskeletal: No deformities and no limitation range of motion other the patient seems to be generally weak. Neurological: Patient is awake ,generally weak, follows simple instructions today like squeezing hands and wiggling toes. Extremities: 1 trace of bipedal edema - Labs CBC & Chem 7: 01/16/24 07:08 01/15/24 05:21 Labs: Abnormal Lab Results - Last 24 Hours (Table) 01/15/24 01/15/24 01/16/24 Range/Units 17:27 23:08 05:30 WBC (3.8-10.6) k/uL RBC (4.30-5.90) m/uL Hgb (13.0-17.5) gm/dL Hct (39.0-53.0) % MCV (80.0-100.0) fL MCHC (31.0-37.0) g/dL RDW (11.5-15.5) % Neutrophils # (1.3-7.7) k/uL Macrocytosis POC Glucose (mg/dL) 190 H 223 H 173 H (70-110) mg/dL 01/16/24 01/16/24 Range/Units 07:08 11:21 WBC 12.3 H (3.8-10.6) k/uL RBC 2.22 L (4.30-5.90) m/uL Hgb 6.5 L* (13.0-17.5) gm/dL Hct 24.3 L (39.0-53.0) % MCV 109.3 H D (80.0-100.0) fL MCHC 26.8 L (31.0-37.0) g/dL RDW 17.7 H (11.5-15.5) % Neutrophils # 8.8 H (1.3-7.7) k/uL Macrocytosis Marked A POC Glucose (mg/dL) 191 H (70-110) mg/dL Assessment and Plan Assessment: Impression: Acute hypoxic respiratory failure requiring intubation mechanical ventilation secondary to aspiration. Status post tracheostomy on 12/10/2023 The patient has bilateral pneumonia with a cavitary infiltrate in the right upper lobe, secondary to Pseudomonas aeruginosa and Citrobacter and the patient is currently on a combination of ciprofloxacin, fluconazole, and tobramycin CAT scan of the chest done on 12/17/2023 was reviewed and the patient has a cavitating cyst/abscess in the posterior aspect of the right upper lobe in addition to patchy opacities bilaterally right more than left consistent with pneumonia,/gram-negative pneumonia. The patient had a pigtail catheter inserted with drainage of the right lung abscess. The bronchial washing is positive for Pseudomonas aeruginosa, quinolone sensitive and the cultures from the pigtail catheter/lung abscess was also positive for Pseudomonas aeruginosa.. Status post J-tube placement 11/16/2023, multiple complications since then related to the J-tube placement requiring multiple surgeries. Ongoing leak around the J-tube, improving still cannot use the J-tube for feeding Persistent right apical pneumothorax with persistent air leak noted in the pigtail catheter Acute peritonitis secondary to above, secondary to small bowel perforation with abdominal contamination Septic shock secondary to above Paroxysmal atrial fibrillation Acute kidney injury requiring hemodialysis secondary to sepsis and septic shock, last hemodialysis was on the , apparently patient is not requiring hemodialysis since then and nephrology planning to discontinue his dialysis catheter from the left groin Weight loss secondary to non-Hodgkin's lymphoma Acute aspiration pneumonia/right upper lobe lung abscess Acute aspiration during upper endoscopy most likely secondary to gastric outlet obstruction secondary to non-Hodgkin's lymphoma based on the pathology from stomach biopsies 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 Critical illness polyneuropathy Metabolic encephalopathy Malfunctioning of the J-tube Recommendation: Continue ventilatory support Continue antibiotics and antifungal therapy, as per ID on the case Continue Dilaudid and Precedex Continue nutritional support/TPN ABG was not done today, but labs were reviewed Continue GI and DVT prophylaxis Family is now requesting that the patient gets hospice at home, may have to arrange for a portable ventilator at home and hospice could take over once the patient is home Remains extremely and critically ill Critical care time is over 30 Will continue to follow Time with Patient: Greater than 30
--- NOTE | 2024-01-16 14:50 | P.PN ---
Subjective Progress Note Date: 01/16/24 CHIEF COMPLAINT: Abdominal pain HISTORY OF PRESENT ILLNESS: Patient shon in the ICU and on mechanical ve ntilation. No acute changes. He is on TPN for nutrition support. PHYSICAL EXAM: VITAL SIGNS: Reviewed. GENERAL: frail, weak HEENT: Tracheostomy site clean dry and intact ABDOMEN: Soft. Nondistended. Midline incision with wound VAC in place and intact. RAYA drain in place. RAYA tube with surrounding drainage ASSESSMENT: 1. 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 Status post J-tube placement and revision for small bowel obstruction 2. Abdominal wound dehiscence status post wound VAC placement 3. Status post tracheostomy PLAN: -Family planning home with hospice tomorrow -Wound VAC to be removed before discharge. Can apply wet-to-dry dressing to in cision wound Physician Coffee Machine Technician note has been reviewed by physician. Signing provider agrees with the documented findings, assessment, and plan of care. Objective - Vital Signs Vital signs: Vital Signs Temp 97.8 F 01/16/24 12:00 Pulse 77 01/16/24 14:00 Resp 25 H 01/16/24 14:00 BP 140/93 01/16/24 14:00 Pulse Ox 99 01/16/24 14:00 FiO2 30 01/16/24 14:00 Intake & Output 01/15/24 01/16/24 01/16/24 18:59 06:59 18:59 Intake Total 2631.098 3566.627 1065 Output Total 1385 1275 1125 Balance 8578.891 8621.627 -60 Weight 100.2 kg 100.2 kg Intake: IV 1140 2140 760 0.9 Normal Saline @ KVO 60 60 30 Ceftolozane/Tazobactam 3 1000 100 gm In Sodium Chloride 0.9 % 100 ml @ 100 mls/hr IV Q8HR [facility] Rx#:[id number] TPN 1080 1080 630 Intake, IV Titration 1351.103 7792.627 305 Amount Dexmedetomidine/0.9% NaCl 461.098 385.627 200 (Pmx) 400 mcg In Empty Bag 1 bag @ 0.2 MCG/KG/HR 5.2 mls/hr IV .[id number] [facility] Rx#:[id number] Fat Emulsion 20% 250 ml 105 In Empty Bag 1 bag @ 21 mls/hr IV TuThSa@0900 [facility] Rx#:[id number] Mvi, Adult No.4 with Vit 1041 K 10 ml Trace (Conc-1Ml/ Dose) 1 ml Sodium Acetate 30 meq Magnesium Sulfate gm 1 gm Calcium Gluconate 0.5 gm Potassium Phosphate 9 mmol Potassium Acetate 10 meq In Amino Acids 5 %/ Dextrose 20 % 1,000 ml @ 90 mls/hr IV .BY DURATION [facility] Rx#:[id number] Sodium Acetate 30 meq 1030 Magnesium Sulfate gm 1 gm Calcium Gluconate 0.5 gm Potassium Phosphate 9 mmol Potassium Acetate 10 meq In Amino Acids 5 %/ Dextrose 20 % 1,000 ml @ 90 mls/hr IV .BY DURATION [facility] Rx#:[id number] Output: Chest Tube Drainage 50 0 200 Chest Tube Right 50 0 200 Drainage 60 0 100 Medial Abdomen 0 0 0 Right Abdomen 60 0 100 Right Upper Posterior 0 0 0 Chest Urine 1275 1275 825 Other: Voiding Method Indwelling Catheter Indwelling Catheter Indwelling Catheter # Bowel Movements 1 ABP, PAP, CO, CI - Last Documented Arterial Blood Pressure 173/76 - Labs CBC & Chem 7: 01/16/24 07:08 01/15/24 05:21 Labs: Abnormal Lab Results - Last 24 Hours (Table) 01/15/24 01/15/24 01/16/24 Range/Units 17:27 23:08 05:30 WBC (3.8-10.6) k/uL RBC (4.30-5.90) m/uL Hgb (13.0-17.5) gm/dL Hct (39.0-53.0) % MCV (80.0-100.0) fL MCHC (31.0-37.0) g/dL RDW (11.5-15.5) % Neutrophils # (1.3-7.7) k/uL Macrocytosis POC Glucose (mg/dL) 190 H 223 H 173 H (70-110) mg/dL 01/16/24 01/16/24 Range/Units 07:08 11:21 WBC 12.3 H (3.8-10.6) k/uL RBC 2.22 L (4.30-5.90) m/uL Hgb 6.5 L* (13.0-17.5) gm/dL Hct 24.3 L (39.0-53.0) % MCV 109.3 H D (80.0-100.0) fL MCHC 26.8 L (31.0-37.0) g/dL RDW 17.7 H (11.5-15.5) % Neutrophils # 8.8 H (1.3-7.7) k/uL Macrocytosis Marked A POC Glucose (mg/dL) 191 H (70-110) mg/dL
[2024-01-16 16:56] LABS: Glucose,Whole Blood 185 mg/dL (70-110)
--- NOTE | 2024-01-16 17:07 | P.PN ---
Progress Note - Text Progress Note Date: 01/16/24 Chief Complaint: On the ventilator This is a 73-year-old patient, follows with Dr. Patricia Deal. Patient was seen this morning in the ICU. Patient's and daughter at the bedside. History obtained predominantly by the . Patient been having trouble with his stomach symptoms for close to 8 months. Patient underwent EGD by Dr. Sahara Cheng yesterday. Patient was found to have ulcerated around the antrum and obstruction to the pylorus. A lot of retained food was found. Patient aspirated. Had to be intubated and brought to the ICU. On a Levophed drip. FiO2 50 and a PEEP of 6. Patient had been losing weight lost about 25 pounds. Previously has a history of mitral valve prolapse. November 13: ICU. Patient remains on Precedex drip and propofol drip. Did not do well attempted extubation yesterday. Patient been off Levophed. NG tube to suction. Spoke to patient's and son at the bedside. Biopsy results awaited. Hemoglobin dropped to 6.9 this morning. Get a unit of blood. November 14: ICU. Up in a chair. Extubated yesterday. NG tube to suction. at the bedside. 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 Oncology was consulted. They have ordered a port. Results discussed with Dr. Sahara Cheng. General surgery was consulted for J-tube placement. Discussed with at the bedside. Patient getting IV fluids, IV Zosyn,. Patient has been on IV amiodarone for A-fib-back in sinus rhythm. Multiple PACs. Did receive unit of blood yesterday. Also IV ferric gluconate. November 15: ICU. Patient earlier today underwent jejunostomy tube placement and a port placement. Patient awake. Answering questions. NG tube to suction present. Updated patient's . Patient remains on IV amiodarone and IV Zosyn. November 16: ICU. Up in the chair. NG tube present but not to suction. Trickle feeding through the jejunostomy tube should be started today. Dietitian has been on board. IV Zosyn to continue. Patient's and his sister at the bedside. Discussed. Also spoke with Dr. Serna. Given patient has no other predisposing cardiac factors for the A-fib except acute illness. His LV function is normal. Left atrium is normal. He has already been loaded with IV amiodarone. Will switch him to oral Lopressor 12.5 twice daily. Hence will DC amiodarone. Patient yesterday had wheezing was put on bronchodilators steroids per pulmonary. November 17: Propped up in bed. NG tube was discontinued. Sinus rhythm. Remains NPO. Getting G-tube feeding at 40 cc an hour. Dietitian following. Get arrangements done for DC home tomorrow including tube feeding. Increase activity discussed with patient and elder daughter at the bedside. Still requiring oxygen. Incentive spirometry. November 18: Patient up in recliner. Earlier today spoke to rn social services David. Informed patient is rather weak and will be going to the [facility]. Looking at authorization. Denae came to the room and spoke to patient his and his daughter. They are very keen to take the patient home as 3 daughters all nurses and they will take care of him at home. Patient earlier today to abdominal cramping and some loose stools.'s tube feeding was held. Told the nurse to start back at the rate of 40 cc an hour. He was before the getting it at 55 cc an hour. Incentive spirometry was again emphasized. Patient remains on 4 L of oxygen. November 19: I saw the patient this morning. Hence I am in the evening. Morning was sitting with his sons. Has some edema. Lungs had crackles I gave him 40 mg of Lasix. He did make good urine. Tube feeding was held from the p revious evening of because of abdominal cramping. Acute abdominal series showed nonspecific bowel gas pattern and SBO to be ruled out. Family and patient was updated. Told him discharge will depend on day by day. Later this afternoon CT scanAnd abdomen pelvis done. Showed small bowel to be 3 point centimeter dilated. Some anasarca. Gastric findings. Gallstones. Later spoke to Dr. Irby from general surgery. They will further review and decide about further plan of action. Will give further dose of IV Lasix because of fluid overload from likely hypoalbuminemia and IV fluids previously received. Patient may take his pills by mouth. Total time spent today about 1 hour with over 40 minutes of discussion. Patient did state his breathing is better after Lasix this morning. November 20: Saw the patient this morning. was present. Patient received 2 more doses of Lasix. Diuresed well. Breathing much better. Lungs are sounding better. Discussed with Dr. Zepeda other surgeon. He is taking 3 cc out of the balloon and the gastrostomy tube. Started trickle feeding at 5 cc an hour. Will see how this does. Later in the day ran into the and the daughter again. Did update them on the same. Dilaudid was discontinued yesterday but morphine was ordered by surgery for patient having pain. Concerns about GI issues with that we will DC the morphine. As family does not want the same. November 21: Patient reclining bed. Tired. Several family members at the bedside. Including his and eldest daughter. Patient started on trickle feed yesterday at 5 cc an hour. This morning he has been on 10 cc an hour. Still having some loose stools. C. difficile was ordered. Patient on 2 L of nasal cannula. Has diuresed well. Will give an additional dose of Lasix today. If C. difficile is negative and the diarrhea is from the tube feedings we may have to use a fecal management system to keep him comfortable. Otherwise patient remains NPO. Dietitian is following the patient. Care was discussed length with patient the and daughter at the bedside. Questions answered. Liquid Tylenol has been added for abdominal pain. Avoid narcotics. Elevated white count likely from Solu-Medrol 11/23/2023--patient was feeling better today. Multiple family member at bedside. No issues overnight. Normal saline at 10 cc an hour, tube feeding at 20 cc an hour, remains on Zosyn, on 3 L oxygen. Afebrile. Heart rate 62, respiratory rate 16, blood pressure 114/67, saturating 91% on 3 L. WBCs 14.5, 9.7 hemoglobin. Platelet 242. BMP is unremarkable. Pulmonary and general surgery following. General surgery recommended to continue tube feeds at 20 cc/h. 11/24/2023--patient reported significant abdominal discomfort, also noted to have leak around G-tube. General surgery is following, evaluated the patient at bedside, adjusted tube feeds. Also reported having diarrhea, on 2 L oxygen, went up to 5 L. Blood pressure was low, 500 mL fluid bolus with close monitoring of respiratory status ordered. Currently on DuoNebs, Solu-Medrol, will continue Zosyn. Chest x-ray showed a left lower lobe infiltrate. Abdominal x-ray showed multiple air-fluid levels. CT abdomen showed multiple dilated small bowel loops, consistent with obstruction, pneumoperitoneum, cholelithiasis and ascites. WBCs 14.1, platelet 255, hemoglobin 8.9. NG tube in place. Family at bedside. patient transferred to SICU for close monitoring. 11/25/23--patient is currently in the ICU, required Levophed overnight due to low blood pressure, low urine output with creatinine trending up. Nephrology following. Torch Solderer also following. Patient remains n.p.o., NG tube in place, following NG tube insertion patient had total of 2 L output, J-tube was draining approximately 200 cc over last 8 hours, continues to have abdominal pain and abdominal tenderness. Patient on IV fluids. Currently on 4 L oxygen. WBCs 8.2, hemoglobin 12.3, platelet 188. Chest x-ray earlier today showed right sided port and a stable left lung airspace disease, NG tube in place. Patient currently on Zosyn, on IV Dilaudid for pain control, on IV Solu-Medrol. General surgery planning for OR today, started on TPN. 11/26/23--patient was seen and examined today. Patient is currently sedated, intubated on mechanical ventilation. Family at bedside. Patient underwent ex lap, abdominal washout, small bowel resection with new feeding jejunostomy tube placement yesterday, small bowel was noted to be perforated with significant contamination of abdominal cavity. Patient is currently on vancomycin and Zosyn. Creatinine went up to 2.85, nephrology following, recommended to continue IV fluids, avoid nephrotoxin Preserved EF on echocardiogram.. Patient currently on Levophed, vasopressin in the ICU for close monitoring. Patient is afebrile, heart rate 122, blood pressure 129/76, currently on mechanical ventilation, sedated. November 26: ICU. Intubated. FiO2 60 and a PEEP of 5. Drips include IV amiodarone. Heart rate was up early did get fired microgram of IV digoxin and 2.5 mg of IV Lopressor. Did drop her blood pressure bit. Urine output was low. Received 80 mg of IV Lasix. Ahmet to 150 cc. Other drips include IV propofol, vasopressin, Levophed. TPN was started yesterday. Antibiotics include IV Zosyn and vancomycin. Patient has a J-tube to drainage to gravity. Spoke to patient's younger daughter and at the bedside. Prognosis guarded. Continue current treatment plan. Chest x-ray shows right lower lobe consolidation. Small pleural effusion. November 27: ICU. Intubated. FiO2 55 and a PEEP of 5. Antibiotics include IV vancomycin. Drips include Levophed at a small dose, IV vasopressin, propofol, amiodarone. Patient converted to sinus rhythm this morning. Getting TPN and normal saline at 75 cc an hour. Urine output about 25 cc an hour. RAYA drain put out about 260 cc last 12 hours that is last warehouse worker 2nd shift. NG tube with bilious output. And also GI J-tube output to gravity. Spoke to patient's and daughter at the bedside. They understand patient still not out of the kee. Platelets have dropped-therefore probably Zosyn stopped. November 28: ICU. Intubated. FiO2 55 and a PEEP of 5. Patient is in sinus rhythm. Seen this morning. Due for dialysis catheter this afternoon. Urine output about 15 to 20 cc an hour. Patient is on IV Lasix 80 mg every 12. Saline is KVO. Drips include IV propofol vasopressin. Patient having significant output through the RAYA drain and the jejunostomy tube to drainage. Creatinine had been getting worse. Patient's at the bedside. Understands patient's remains critically ill. Hemoglobin is down to 7. Given that patient's pain hypotensive, and on vasopressin we will give a unit of blood with dialysis. Getting TPN antibiotic changed to IV meropenem November 29: ICU. Intubated. FiO2 55 and a PEEP of 5. Remains in sinus rhythm. Getting TPN. Dialyzed yesterday and this morning. About 1000 cc removed. Urine output about 50 cc an hour. Patient is on IV propofol. Off vasopressin. Still having significant output through the RAYA drain and jejunostomy tube. Patient received a second unit of blood yesterday. Patient's and daughter at the bedside. I did discuss guarded prognosis. Did asked them to revisit CODE STATUS.. Getting IV meropenem. November 30: ICU. Intubated. Did get a sedation holiday t today. Back on propofol. Getting TPN. Still getting IV Lasix. Fair urine output. Jejunostomy tube in last 8 hours was about 30 cc output. RAYA drain in the 8 hours had about 180 cc output. Telemetry shows sinus rhythm. NG tube has low intermittent suction with negative output. On the vent with FiO2 40 and a PEEP of 5. No hemodialysis today. Discussed with the and eldest daughter at the bedside. IV meropenem-patient's sputum had grown Citrobacter freundii and Pseudomonas aeruginosa. December 01: ICU. Intubated. Jejunostomy tube to gravity. Only 10 cc output in last 24 hours. RAYA drain. About 190 cc last 6 hours. Nasogastric tube to low intermittent suction. Minimal output. Patient is on a small dose of propofol 5 mics. Telemetry shows sinus rhythm. Patient started on small dose of Cleviprex this morning. Blood pressure. Getting TPN. FiO2 35 and PEEP of 5. Discussed with the at the bedside. Hemodialysis today December 02: ICU. Patient remains intubated. FiO2 35 PEEP of 5. Patient is on IV propofol. IV Cleviprex was discontinued yesterday. Also remains on TPN. Telemetry shows sinus rhythm. NG tube is good no output. Still significant output through the RAYA drain. Jejunostomy tube has minimal output. Patient had hemodialysis today 2 L of fluid was removed. Oral half liters yesterday. Patient getting a sedation holiday. General Surgery started the patient on trickle feeding at 10 cc an hour. I did speak to patient's at the bedside. Prognosis remains guarded but there is some improvement. December 03: ICU. Intubated. FiO2 35 PEEP of 5. Drips include IV propofol and Precedex. Getting TPN. Telemetry shows sinus rhythm. Remains on IV Lasix 80 mg twice a day. IV meropenem. Because patient gets easily agitated when transitioning off propofol he has been switched over to Precedex. For hemodialysis today. December 04: ICU. Intubated. FiO2 35 and a PEEP of 5. Patient been taken off propofol is on Precedex. Telemetry sinus rhythm. J-tube with minimal output. RAYA drain with decreased output. NG tube to suction minimal output. Family wanted to hold off trickle feeding until cleared by oncology. Which he did today. Trickle feeding will be started today. Spoke to patient's and one of the daughters at the bedside. Dr. Russ is spoken to the earlier this point they want to do further tracheostomy tube. October 4: ICU. Intubated. FiO2 35 PEEP of 5. Patient remains on Precedex and PPN. Patient's dialysis catheter was not functioning is getting another [address] Bobby this afternoon. Remains on IV meropenem. Has a RAYA drain in the jejunostomy tube to gravity. NG tube to low intermittent suction. No family at the bedside. December 06: ICU. Intubated. FiO2 35 PEEP of 5. RAYA drain putting out about approximately 120 cc per shift. Patient on IV Precedex. FiO2 35 PEEP of 5. Telemetry-sinus rhythm. Patient occasionally been put on small dose of Levophed specially for hemodialysis getting it today. Also started on midodrine for low blood pressure. Tolerating tube feeding at 10 cc an hour. Also had a bowel movement. Mentation has not improved. Even with sedation holiday. Neurology consulted. CT brain shows no acute process. December 07: ICU. Intubated. FiO2 35 PEEP of 5. Telemetry-sinus rhythm. NG tube to suction low intermittent minimal output. Getting TPN. Tube feeding at 20 cc an hour. RAYA drain averaging over 100 cc per shift. Remains on Precedex. EEG was done today. Discussed with at the bedside. Family is currently not inclined for tracheostomy tube today. Day 13 of being intubated December 08: ICU. Intubated. FiO2 35 PEEP of 5. Patient is put on back on propofol per bioinformatics support specialist Dr. JIMENEZ. EEG did show some potential for spikes was put on Keppra by neurology. Telemetry shows sinus rhythm. NG tube to suction with no output. Tube feeding was put on hold because of questionable discharge on the site. Being restarted today. RAYA drain is 150 cc last 12-hour shift. Patient does open eyes. Family has decided to proceed with tracheostomy and surgery has been consulted for the same. Spoke to the at the bedside. For hemodialysis today. December 09: ICU. Intubated FiO2 35 PEEP of 5. Patient seen this morning. Pending tracheostomy placement this afternoon. Remains NPO. G-tube feeding was held overnight. RAYA drain putting out about 100 cc per shift. Received a unit of blood for hemoglobin of 6.6. On 25 mics of propofol. Getting TPN and meropenem. Spoke to the at the bedside. Patient became hypotensive with dialysis yesterday. Levophed had to be given. Only 800 cc were removed yesterday. No hemodialysis today. December 10: ICU . FiO2 35, PEEP 5. Tracheostomy was done yesterday by Dr. Ewing. G-tube feeding was started today at 10 cc an hour. Dietitian following. RAYA drain 12-hour shift overnight put out about 30 cc. Patient hemodialysis today about 1 L removed. Patient has a sacral stage II decub with a dressing. On propofol 20 mics. Spoke to at the bedside. TPN. Meropenem was discontinued yesterday. December 11: ICU. FiO2 35 PEEP of 5. Tracheostomy. NG tube was discontinued. No hemodialysis today. Telemetry shows sinus rhythm. J-tube feeding at 40 cc an hour. TPN was discontinued. Patient has been off propofol also. PICC line in place. Patient had a EEG done today. Spoke to patient's elder daughter at the bedside. May open eyes occasionally. Not really following commands December 12: 73-year-old white male with history of chronic abdominal pain for the last 8 months has been treated with Protonix 40 mg daily for the last 3 months with no improvement. Patient had a 22 pound weight loss in the last [address] of the abdomen and pelvis 3 weeks ago showed thickening of the antral wall with pathological adenopathy posterior to the stomach suspicious of neoplasm. Today the patient underwent elective upper endoscopy to evaluate further, patient received IV sedation by anesthesia endoscope was inserted into the mouth, esophagus was intubated without any difficulty there was evidence of large amount of liquid and solid food noted in the stomach suggestive of gastric outlet obstruction. Scope could not be advanced through the pylorus, however in the prepyloric area there was a large superficial ulceration identified with multiple biopsies were done from this area. The body cardia and fundus could not adequately visualize because of large amount of retained food in the s tomach. Scope was withdrawn back to the stomach and upon careful examination the mucosa of the antrum body and cardia as well as the fundus appeared normal. Procedure was being performed and biopsies were done patient threw up and subsequently became hypoxic there was clearly evidence of witnessed aspiration anesthesia intubated the patient, procedure was terminated, and the patient was transferred to the ICU, this consult was initiated. Patient is now on assist- control rate of 20 tidal volume 500 FiO2 70% PEEP of 10 ABG is pending, earlier ABG showed profound hypoxia patient is on propofol at 50 mcg/kg/min, next ABG is pending. Chest x-ray showed chronic changes without evidence of acute pulmonary disease. 12/14/2023 Patient remains in the ICU, generally weak Patient s/p tracheostomy G-tube in place Patient still has fever and mild tachycardia but tachycardia is improving, leukocytosis improving as well. Hemoglobin 8.1. Creatinine 3.0 and nephrology team on the case. He has mild transaminitis. He was getting Zosyn which is held now, nowCalcitonin is pending 12/14 Patient shon in the ICU, he is still encephalopathic and does not follow command. Neurology service following closely. He is status post tracheostomy. Also J-tube His abdomen looks soft and on exam he has mild coarse secretions. Has a Abarca catheter with clear urine His pro- Calcitonin is still high but trending down 3.0 down to 1.9 No fever this morning WBC slightly less at 16.3 Patient currently off antibiotic He is getting steroids IV Solu-Medrol which might contribute to his leukocytosis. Also he is on IV Keppra by neurologist 12/14 Patient remains confused in the ICU calm, he had a good night per family member and staff. Tracheostomy in place Patient has occasional coughing spells, patient also developed some partial wound dehiscence in his abdomen, surgery team are aware and are going to evaluate the patient Patient also has positive blood culture from 12/13: Gram-positive cocci in clusters. Patient received one-time dose of IV vancomycin. Patient also had fever 2 days ago, leukocytosis and total elevated pro- Calcitonin. Therefore we are going to consult infectious disease team. As his antibiotic Zosyn was stopped few days ago. Currently patient KVO He has good urine output December 16: ICU. Trach. Congested. Requiring suctioning. No hemodialysis today. Getting G-tube feeding at 50 cc an hour. FiO2 30 and a PEEP of 5. On IV Precedex. Eyes open. Does follow commands. Weakness in the limbs. Spoke to at the bedside. Sputum positive for Klebsiella oxytoca and Pseudomonas aeruginosa. December 17: ICU. On trach. Currently cough with increased secretions requiring suctioning. Adding scopolamine patch. Very much clear secretion. CT scan is showing right upper lobe lung abscess. G-tube feeding at 50 cc an hour. Hemodialysis today. RAYA drain putting out about 140 cc a shift. Serous. Has been midline incision wound dehiscence. Wound VAC was placed on it. Stage II ulcer. Patient is on Precedex drip 0.15 mics. Urine output is good about 6200 cc an hour. Spoke to the at the bedside. Patient currently not stable for transfer to LTAC. No limb movements. PT OT on the case. otherwise awake does follow simple commands by face December 18: ICU. Patient seen this afternoon. Because of pain getting IV Dilaudid. No nasal cannula on room air. Does move about his head. Telemetry shows sinus rhythm. FiO2 30 and a PEEP of 5. Patient started on scopolamine patch yesterday has decreased secretions today. Good urine output. Tube feeding at 60 cc an hour. Wound VAC on incisional would be high since in place. RAYA drain continues to make output. No hemodialysis today December 19: ICU. Patient was seen earlier today. FiO2 30 and a PEEP of 5. Sinus rhythm. Awake. Does follow with eyes. Tube feeding got obstructed tube feedings held for now. Increasing oozing from the incision drainage site. at the bedside. Wound VAC remains in place. Good urine output. Dialysis held today. December 20: ICU. Per nephrology no dialysis today. 1 L fluid bolus given. J- tube was replaced over the wire by Dr. Ewing from surgery. On Precedex 0.6 mcg. FiO2 30 and a PEEP of 5 on the vent. RAYA drain putting out of around 100 cc per shift. at the bedside. Drainage through the abdominal incision wound. CT scan abdomen showed tube placement in the small bowel. Stable large right lower quadrant mass with a fluid level. December 21: ICU. No dialysis today. Patient started on trickle feeding through the J-tube yesterday. He started leaking around the J-tube site. Tube feeding was held. Dressings were placed. Wound VAC remains on the incision. Still having output through the RAYA drain. Patient remains on Precedex 0.4 mcg. FiO2 30 and a PEEP of 5. Sinus rhythm. at the bedside. December 22: ICU. Patient was seen this morning today by me. No dialysis today. Patient's and daughter at the bedside. FiO2 30 and a PEEP of 5. Sinus rhythm. Still having significant secretions through the tracheostomy tube. On Precedex 0.4 mcg. Getting D5W IV fluids. Tube feeding remains to be on hold since yesterday. Still output of RAYA drain. Awaiting input from surgery. Discussed with the and daughter. December 23: ICU. Saw the patient this afternoon. Because of good output of urine dialysis has been discontinued. Telemetry shows sinus rhythm. FiO2 30 and a PEEP of 5. RAYA output has been around 8200 cc an hour. Good urine output. Patient does have very slight movement of the limbs. Wound VAC is putting out about 20 cc per shift. Yesterday when trickle feeding was started patient's J- tube drainage also started leaking around the insertion site. Tube feeding was held. Patient remains on IV Zosyn and Precedex at 0.3 mcg. I had a very lengthy discussion with patient's daughter and at the bedside overall guarded prognosis. Later surgery spoke to the family, and then the nurse called me that family was wanting transferred to [facility]. I spoke to Dr. Irby. They felt they could not offer anything more at this point. 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 Gave them the reason for transfer. Later in the ICU nurse informed me through [employer] that [facility] had declined the transfer. Total time spent today about 50 minutes with over 30 minutes of discussion. December 24: ICU. Patient is doing not too well. Sinus rhythm. Drips include norepinephrine and IV propofol. Surgery did put 2 stitches around the J-tube insertion site. Started on TPN today. FiO2 30 PEEP of 5. Patient became hypothermic put on a Manjit hugger. Also hypoglycemic. Decreased urine output. IV fluids increased. Patient's son was at the bedside. I did speak to patient's eldest daughter outside in the waiting room. Did tell the patient doing very poorly. I did try to call the on the phone number she has gone home. Started an IV antifungal today. December 26, 2023 73-year-old white male with history of chronic abdominal pain for the last 8 months has been treated with Protonix 40 mg daily for the last 3 months with no improvement. Patient had a 22 pound weight loss in the last [address] of the abdomen and pelvis 3 weeks ago showed thickening of the antral wall with pathological adenopathy posterior to the stomach suspicious of neoplasm. Today the patient underwent elective upper endoscopy to evaluate further, patient received IV sedation by anesthesia endoscope was inserted into the mouth, esophagus was intubated without any difficulty there was evidence of large amount of liquid and solid food noted in the stomach suggestive of gastric outlet obstruction. Scope could not be advanced through the pylorus, however in the prepyloric area there was a large superficial ulceration identified with multiple biopsies were done from this area. The body cardia and fundus could not adequately visualize because of large amount of retained food in the stomach. Scope was withdrawn back to the stomach and upon careful examination the mucosa of the antrum body and cardia as well as the fundus appeared normal. Procedure was being performed and biopsies were done patient threw up and subsequently became hypoxic there was clearly evidence of witnessed aspiration anesthesia intubated the patient, procedure was terminated, and the patient was transferred to the ICU, this consult was initiated. Patient is now on assist- control rate of 20 tidal volume 500 FiO2 70% PEEP of 10 ABG is pending, earlier ABG showed profound hypoxia patient is on propofol at 50 mcg/kg/min, next ABG is pending. Chest x-ray showed chronic changes without evidence of acute pulmonary disease. 12/27/2023 Patient is seen and evaluated with family at bedside; remains in the ICU intubated and mechanically ventilated. - ABG showed a pO2 of 99 pCO2 31 pH of 7.44. -- Remains on Eraxis daptomycin and Zosyn patient is intermittently requiring Dilaudid, Ativan does not seem to help his agitation and restlessness. -- Continues to have leakage around the jejunostomy tube, and patient is undergoing the J-tube exchange today. Family is at bedside, seems to be quite anxious about his overall condition, and I explained to the that we are doing the best we can considering his critical illness situation and critical illness polyneuropathy. Patient is profoundly weak, and weaning the patient from mechanical ventilation is almost impossible. At least not at this point yet WBC count is 10.9 hemoglobin is 8.1 basic metabolic profile is normal BUN is 46 creatinine 1.90 patient has been off hemodialysis since the . Chest x- ray continues to show stable findings with right upper lobe opacity and right lower lobe opacity and possibly a small right-sided pleural effusion ----Continue ventilatory support, now on IMV mode rate of 16 with pressure support of 14 Continue Precedex and use Dilaudid 0.5 mg every 2-3 hours as needed. Nutritional support patient is now on TPN, Possible J-tube changed today for J- tube malfunction Continue antibiotics including daptomycin and Zosyn, Eraxis was added by infectious disease 12/28/2023 the patient is seen and evaluated in room at bedside; continues to be afebrile, the patient is on the ventilator through the trach FiO2 is currently stable at 30% no significant pleural effusion clinically patient on requiring any pressor support still having drainage around his jejunostomy tube patient dialysis catheter has been discontinued. Patient white count normalized to 7.6, creatinine is 1.51 patient with pneumonia with a sputum showing Citrobacter and Pseudomonas aeruginosa, the patient sputum repeat is still growing Citrobacter and Pseudomonas sensitive to the Pseudomonas is pending continue with Zosyn -patient did have a positive blood culture with staph epi that was oxacillin resistant as the patient did have a PICC line and the dialysis catheter he is on daptomycin repeat blood culture currently growing oxacillin sensitive staph epi, the patient dialysis catheter has been discontinued Has been sent for the culture -patient also have significant excoriation around his jejunostomy tube site which is still leaking Eraxis was added which will be continued as the patient fever pattern has improved and the patient white count has normalized once again discussed with the nursing staff to apply Triad cream which was discussed yesterday but not applied and monitor clinical course closely 12/29/2023 Patient is seen and evaluated with family members at bedside; remains intubated and mechanically ventilated -- ABG showed a pO2 of 105 pCO2 31 pH of 7.45. Remains on Precedex; multiple antibiotics and antifungal including Eraxis daptomycin and Zosyn. -- chest x-ray is showing improvement in his right upper lobe airspace disease/pulmonary abscess. Right lower lobe seems about the same with chronic opacity and possibly some small right-sided pleural effusion. --Family is at bedside, patient is arousable but does not follow any instructions. Gets extremely restless and agitated easily hence patient is receiving Dilaudid which seems to be working much better for this patient than benzodiazepines --possibly transfer the patient to a select care specialty. 12/30/2023 Evaluated in follow-up in the intensive care unit. He remains on the mechanical ventilator. Status post tracheostomy. There has been a decrease in the amount of leakage around the J-tube site he continues on a gravity flow. TPN is infusing tube feedings remain on hold at this time. No bowel movement reported for the last 5 days. X-ray today reveals extensive pleural parenchymal opacities throughout the right with at least a moderate pleural effusion. Mild patchy densities left mid and lower lung are also similar. Blood work reveals a white blood cell count 11.5, hemoglobin 8.1, platelet count of 78, sodium 142, potassium 4.2, BUN of 42, creatinine of 1.22, Phos of 2.3, magnesium 1.9. Patient continues on IV anidulafungin IV Zerbaxa IV daptomycin. Patient is currently sedated with propofol and also Precedex which is currently on hold at this time. December 31, 2023: ICU. Patient continues to do poorly. On propofol 35 mics. Also getting IV Dilaudid and IV Ativan.. Telemetry shows sinus rhythm. J-tube feeding has been discontinued. Significant output through the Abarca bag and around the G-tube site. Patient also putting out through the RAYA drain on the right side. Getting TPN and lipids. Patient is antimicrobial include iv aniedulefungin, IV ceftolozane/tazobactam, IV daptomycin Advance care planning [October 31, 2023] I met with patient's at the bedside. Went through in detail with patient is overall very poor clinical status. Chances of any meaningful recovery next to minimal. I also did mention that patient in my opinion was not stable to go to chronic ventilator setting. I suggested comfort care/hospice. I did not feel and why all honesty that patient is benefiting any further from the treatment we are giving him in fact causing probably more suffering. I also spoke to patient's daughter outside in the waiting room. Total time spent about 50 minutes with over 30 minutes of discussion. Later I called Dr. Luther JIMENEZ the bioinformatics support specialist after he received a text that family was expressing that some physician expressed he was doing better and giving hope. I spoke to nurse Lemos in the evening and she and Dr. JIMENEZ did go and talk to patient's family at the bedside later. January 01, 2024: ICU. FiO2 30 and a PEEP of 5. Continues to have increased drainage at the G-tube site. Wound VAC in place over the incision. RAYA drain continues to put out excretions. Good urine output. Drips include IV propofol at 20 mics, also getting IV Ativan and Dilaudid. Patient also keeping getting TPN lipids. Spoke to the patient's at the bedside. No further questions. I did speak to Dr. Irby from general surgery. Hence it is both our impression again that changing the tube will not make any difference to the bigger picture. And probably futile. Dr. Irby will be speaking to the family today. David from rn social services did ask about of family meeting. I did reiterate that I spoken at length to the a few times and also the daughter. Dr. Jimenez also spoke to the and Dr. Irby will be speaking with the today. Prognosis remains to be very poor. I did tell the in my opinion probably the patient is not r a candidate for long-term facility. Will bioinformatics support specialist Dr. Jimenez determine if the patient is a candidate for long-term chronic ventilator facility. January 02, 2024: ICU. FiO2 30 PEEP of 5. Telemetry sinus rhythm. Drips include propofol at 20 mics. Patient getting TPN lipids. Receiving 1 unit of packed red blood cell. Patient was having a breakdown around the tracheostomy stoma site. With a cuff leak. G-tube site is continues to have increasing output. Wound VAC in place. RAYA drains also having increasing output. Patient sister and daughter from [place] from out of town. Earlier they spoke at length with Dr. alford from general surgery. Prognosis remains poor. January 03, 2024: ICU. FiO2 30 PEEP of 5. On propofol. 50 mics. Getting TPN lipids. Sinus rhythm. Wound VAC in place. Drainage around the j-tube site. RAYA drain continues to drain. Patient somewhat sedated. at the bedside. Later rn social services David inform me that the surgical team Dr. Irby has suggested possible you have [facility], to which family is trying to obtain transferred to. Per Dr. Jimenez note patient has been decline by long-term care twice. Prognosis remains poor. at the bedside. Had no questions. Brother Nathan is present. January 04, 2024: ICU. FiO2 30 PEEP of 5. Propofol was held this morning. Getting TPN lipids. Sinus rhythm. Wound VAC remains in place. Continues to have drainage around the J-tube. RAYA drain continues to have output. at the bedside. She had no questions. Antibiotics in place. January 05, 2024: ICU. FiO2 30 PEEP of 5. Audibly sounding congested. Getting TPN lipids. Sinus rhythm. Wound VAC in place. Drainage around J-tube site. RAYA output continues. No family at bedside. Getting antibiotics. Lethargic January 06, 2024: ICU. FiO2 30 PEEP of 5. Patient is been off propofol since yesterday. Does move his head about. Try to open his eyes sometimes. Sinus rhythm. Blood pressure is running high yesterday. Started on Cleviprex. Hydralazine is being added. Continue to get TPN lipids. J-tube site remains excoriated. Wound VAC in place. RAYA output about 40 to 50 cc is a 12-hour shift. Patient elder daughter at the bedside. Eraxis was discontinued on January 02. Daptomycin is being discontinued by ID. Continue ceftolo'szone. CT abdomen pelvis done today: 3.1 cm organized fluid collection within the rectovesicular space concerning for abscess. No change in right upper lung 4.9 cm fluid collection with a fluid level. For possible pulmonary abscess. Moderate size right lung base multiloculated hydropneumothorax possibly abscess. Additional areas of air bronchograms. January 07, 2024: ICU. FiO2 30 PEEP of 5. Patient was taken down for pigtail drainage of the right lung abscess. About 200 cc of pus was obtained. Nurse informed me when they told him about for the procedure a lot of pus gushed out from the tracheostomy site. Dr. Love at the bedside did a bronchoscopy. Some pus was aspirated. No obvious fistula was noted. Patient is being back on Cleviprex drip. TPN lipids. January 08, 2024: ICU. Patient was having severe bouts of coughing. Unable to maintain ventilation. Patient was put on Nimbex drip and propofol drip. TPN lipids continue. Has a right chest wall pigtail catheter 90 cc output in 12- hour shift. Drainage from around the J-tube site. RAYA drain continues Ahmet to have an output. Abdominal wound is high since with the wound VAC in place. Patient sedated. January 09, 2024: ICU. Patient is off propofol and Cleviprex. Does open eyes. RAYA drain. About 40 cc last 24 hours. J-tube site continues to have increased output. Requiring dressing change every so often. Wound VAC in place. Patient getting Dilaudid and Ativan. Telemetry shows sinus rhythm. 40 cc out of the pigtail drainage. Patient started on ciprofloxacin and tobramycin. Remains on TPN and lipids. Patient's eldest daughter and at the bedside. No new questions. January 10, 2024: ICU. Overnight patient had become asynchronous. Had to be put on Precedex drip. Hemoglobin dropped down to 6.6. Monitor blood ordered. RAYA output about 100 cc last 24 hours. Wound VAC remains in place. TPN lipid continues. Patient also has a leak in the right pigtail catheter. Sinus rhythm. Continues to have increased secretion at the G-tube site. Ventilator FiO2 30 and a PEEP of 5. at the bedside. Had no further questions. January 11, 2024: ICU. Patient remains on IV Precedex. TPN.'s RAYA output over 30 cc last 24 hours. Wound VAC remains in place. Sinus rhythm. FiO2 30 PEEP of 5. Pigtail with very little output. Spoke to Dr. Love who only spoke to the patient's at length. Gnosis poor. When I walked in patient's 2 daughters and the present. is very tearful crying hugging the patient. The daughter had no further questions January 12, 2024 Ahmet: ICU. Continues on IV Precedex. Getting TPN lipids. Wound VAC in place. Sensitive. FiO2 30 and a PEEP of 5. Patient's at the bedside. Had no questions. January 13, 2024: ICU. FiO2 30 PEEP of 5. Remains on Precedex 0.8 mg. Eyes open. Sometimes does track with head. Not moving limbs. Some decrease in output from the G-tube site. Wound VAC putting out about 100 cc every 12 hours. RAYA drain about 100 cc every [address] Russ met with the family earlier today. Patient's been made DNR. Telemetry sinus rhythm. Patient's and daughter at bedside. They have no questions January 14, 2024: ICU. FiO2 30. PEEP of 5. Patient is has eyes open and tracking. Urine output about 100 cc an hour. NG site output looks like gastric contents. RAYA site about 50 cc in the last 12 hours. Telemetry sinus rhythm. and daughter have asked for hospice consultation for informational visit. They want to use [facility]. I sat with them and the nurse and a full expression of the hospice involved involved. Several questions answered. Daughter does express that she would like to take the patient home. The other sibling will be coming on from [place] on Saturday. They want to hold on at least until then. January 15, 2024: ICU. FiO2 30 and a PEEP of 5. Getting CPAP today. Asynchronous better. J-tube site continues to have increase secretions. Sinus rhythm. Awake. Does move his head possibly to command. Remains on Precedex. Getting Dilaudid. Fair urine output. Has a air leak in the pigtail. Minimal output through the chest tube. RAYA drain continues to have an output. at the bedside. January 16, 2024: ICU. On the ventilator FiO2 30 and a PEEP of 5. Pressure support mode. Wound VAC remains in place. J-tube site continues to have output. RAYA drain putting out output. Remains on pressors Precedex and getting Dilaudid. Antibiotics per ID. Patient being planned to go home tomorrow with home hospice. at the bedside. Had no further questions. Being followed by rn social services David and home hospice team from [facility] The plan for tomorrow currently is as follows: -Hospice arranging for transport with portable ventilator, to home with family -Antibiotics as discussed with ID will be discontinued -Wound VAC to be removed prior to discharge per surgery -RAYA drain to remain in place with dressing changes at the J-tube site. Dressing changes at the incision site per surgery. -TPN lipids will be discontinued prior to discharge -Patient to be taken off Precedex by r bioinformatics support specialist Active Medications Acetaminophen (Acetaminophen Suppository 650 Mg Supp) 650 mg RECTAL Q6HR PRN PRN Reason: Fever Albuterol/Ipratropium (Ipratropium-Albuterol 3 Ml Neb) 3 ml INHALATION RT-QID [facility] Last Admin: 01/16/24 15:08 Dose: 3 ml Albuterol/Ipratropium (Ipratropium-Albuterol 3 Ml Neb) 3 ml INHALATION RT-Q2H PRN PRN Reason: Shortness Of Breath Or Wheezing Last Admin: 01/08/24 04:01 Dose: 3 ml Bisacodyl (Bisacodyl 10 Mg Supp) 10 mg RECTAL DAILY [facility] Last Admin: 01/16/24 08:22 Dose: Not Given Dextrose/Water (Dextrose 50% Syringe 50 Ml) 25 ml IVP PER PROTOCOL PRN; Protocol PRN Reason: Hypoglycemia Last Admin: 01/03/24 06:18 Dose: 25 ml Dextrose/Water (Dextrose 50% Syringe 50 Ml) 50 ml IVP PER PROTOCOL PRN; Protocol PRN Reason: Hypoglycemia Last Admin: 12/25/23 18:03 Dose: 50 ml Hydralazine HCl (Hydralazine Hcl 20 Mg/Ml 1 Ml Vial) 10 mg IVP Q6HR PRN PRN Reason: SBP >140 Last Admin: 01/07/24 23:28 Dose: 10 mg Hydromorphone HCl (Hydromorphone 1 Mg/Ml 1 Ml Syringe) 1 mg IVP Q2HR PRN PRN Reason: Breakthrough Pain Last Admin: 01/16/24 16:38 Dose: 1 mg Fat Emulsion Intravenous 250 (ml/ IV Solution) 250 mls @ 21 mls/hr IV [id number] [facility] Last Admin: 01/16/24 09:25 Dose: 21 mls/hr Ciprofloxacin/Dextrose 400 mg/ (IV Solution) 200 mls @ 200 mls/hr IVPB Q8H [facility] Last Admin: 01/16/24 13:23 Dose: 200 mls/hr Dexmedetomidine HCl 400 mcg/ (IV Solution) 100 mls @ 5.2 mls/hr IV .[id number] [facility]; Protocol Last Admin: 01/16/24 16:00 Dose: 1.4 mcg/kg/hr, 36.4 mls/hr Fluconazole/Sodium Chloride (200 mg/ IV Solution) 100 mls @ 100 mls/hr IVPB DAILY [facility]; Protocol Last Admin: 01/16/24 08:33 Dose: 100 mls/hr Parenteral Vitamin Supplement 10 ml/ Zinc/Copper/Manganese/Selenium 1 ml/ Sodium Acetate 30 meq/ Magnesium Sulfate 1 gm / Calcium Gluconate 0.5 gm/Potassium Phosphate 9 mmol/Potassium Acetate 10 meq/Amino Acids/Dextrose 1,041 mls @ 90 mls/hr IV .BY DURATION [facility] Last Admin: 01/16/24 08:07 Dose: 90 mls/hr Sodium Acetate 30 meq/Magnesium Sulfate 1 gm/Calcium Gluconate 0.5 gm/Potassium Phosphate 9 mmol/Potassium Acetate 10 meq/Amino Acids/Dextrose 1,030 mls @ 90 mls/hr IV .BY DURATION [facility] Last Admin: 01/15/24 20:31 Dose: 90 mls/hr Insulin Aspart (Insulin Aspart (Novolog) 100 Unit/Ml Vial) 0 unit SQ 0000,060 0,1200,1800 [facility]; Protocol Last Admin: 01/16/24 12:13 Dose: 2 unit Levetiracetam (Levetiracetam Iv 500 Mg/5 Ml Vial) 250 mg IVP Q24HR [facility] Last Admin: 01/16/24 08:34 Dose: 250 mg Miscellaneous Information (Phosphorus Replacement Protoco 1 Each Misc) 1 each MISCELLANE DAILY PRN; Protocol PRN Reason: Per Protocol Miscellaneous Information (Potassium Replacement Protocol 1 Each Misc) 1 each MISCELLANE DAILY PRN; Protocol PRN Reason: Per Protocol Miscellaneous Information (Magnesium Replacement Protocol 1 Each Misc) 1 each MISCELLANE DAILY PRN; Protocol PRN Reason: Per Protocol Multi-Ingred Cream/Lotion/Oil/Oint (Hydrophilic Cream 180 Gm Tube) 1 applic TOPICAL BID [facility]; Protocol Last Admin: 01/16/24 08:46 Dose: 1 applic Multi-Ingredient Ointment (Zinc Oxide 20% Oint 28.4 Gm Tube) 1 applic TOPICAL BID PRN; Protocol PRN Reason: Skin Irritation Naloxone HCl (Naloxone 0.4 Mg/Ml 1 Ml Vial) 0.2 mg IV Q2M PRN PRN Reason: Opioid Reversal Pantoprazole Sodium (Pantoprazole 40 Mg/10 Ml Vial) 40 mg IVP BID [facility] Last Admin: 01/16/24 08:33 Dose: 40 mg Petrolatum (Zinc Oxide Paste (Z-Guard) 1 Applic) 1 applic TOPICAL BID [facility]; Protocol Last Admin: 01/16/24 08:46 Dose: 1 applic Past medical history to include: GERD Social history: . No smoking. Physical examination: VITAL SIGNS: 97.9, 79, 20, 131 x 90, 99% on the ventilator GENERAL: Eyes open, does attempt to talk, TPN and lipids EYES: Pupils equal. , tracking Conjunctiva edouard l. HEENT: External appearance of nose and ears normal, tracheostomy-. NECK: JVD unable to assess; masses not palpable. HEART: First and second heart sounds are normal; edema, present LUNGS: Respiratory rate increased, decreased breath sounds right chest wall pigtail catheter ABDOMEN: Soft, some tenderness. Liver spleen not palpable, no masses palpable..jejunostomy tube-dressing in place, . RAYA drain. Incision with stitches with - wound VAC PSYCH: Unable to assess NEURO: Eyes open. Attempts to talk. Moves his head tracking. Slight movement in the arm. INVESTIGATIONS, reviewed in the clinical context: January 15: White count 12.3 hemoglobin 6.5 platelets 291 January 14: White count 17 hemoglobin 7.9 platelets 310 potassium 3.[address] abdomen pelvis [January 05]: 3.1 cm organized fluid collection within the rectovesicular space concerning for abscess. No change in right upper lung 4.9 cm fluid collection with a fluid level. For possible pulmonary abscess. Moderate size right lung base multiloculated hydropneumothorax possibly abscess. Additional areas of air bronchograms. January 05: White count 10.6 hemoglobin 7.6 platelets 111 sodium 137 potassium 3.5 BUN 44 creatinine 0.95 January 03: White count 13.4 hemoglobin 8.1 platelets 95 potassium 5.2 creatin ine 1.1 albumin 1.8 Sputum culture [December 24] Citrobacter freundii, Pseudomonas aeruginosa Blood culture [December 24] Staphylococcus pettenkoferi December 24: White count 1.5 hemoglobin 8.2 platelets 106 potassium 3.8 BUN [address] chest abdomen without contrast [December 16] right upper lung cavitary lesion with air-fluid level in the posterior aspect and a larger cavitary lesion poss ibly within the lung parenchyma itself. Extending down towards the diaphragm additional airspace opacities in the left lung base. December 09: White count 26.1 hemoglobin 8.6 platelets 154 potassium 4.1 BUN 86 creatinine 3.31. Hemoglobin this morning was 6.6 prior to transfusion EEG-evidence of generalized cerebral dysfunction and sporadic intermittent higher amplitude sharply contoured waves mainly bifrontal. Showing cortical irritability. 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 Serosal fibrous adhesions. Viable margins. Sputum culture: [November 25]: Citrobacter freundii. Pseudomonas aeruginosa November 20: White count 14.4 hemoglobin 8.8 platelets 229 potassium 4.1 BUN [address] scan abdomen [November 19] possible small bowel obstruction Stool: C. difficile negative November 15: WBC 13 hemoglobin 7.7 platelets 248 potassium 4.3 creatinine 0.87 2D echo: EF 55 to 60%. Kidneys bladder: Unremarkable November 13: White count 12 hemoglobin 6.9 platelets 276 potassium 4.4 creatinine 1.21 magnesium 1.8 iron 6 TIBC 365% saturation 1.64 transferrin 261 ferritin 34.6 B12 569 folate 4.4 November 11: Creatinine 0.86 EGD: Large amount of retained solid liquid food noted in the stomach. Large superficial gastric antral ulceration involving most of the antrum extending into the pylorus causing pyloric stenosis. Biopsies were obtained. Chest x-ray film personally reviewed by me-scattered infiltrates Assessment plan: -Aspiration and gram-negative bacterial pneumonia a bilateral initially from retained gastric contents mostly food and liquids, causing acute hypoxic respiratory failure: On presentation: Subsequent bacterial pneumonia sputum culture November 25: Citrobacter freundii, Pseudomonas aeruginosa. December 13: Klebsiella oxytoca, Pseudomonas aeruginosa IV meropenem-, IV Zosyn.IV ceftolozane/tazobactam, IV daptomycin, tobramycin- all discontinued Currently getting IV ciprofloxacin. , ceftolozane-tazobactam. -Patient became asynchronous with the ventilator. On Precedex drip -Breakdown of tracheostomy stoma site. Dressing in place Being followed by bioinformatics support specialist -Sepsis with septicemia from above Patient received multiple antibiotics -Right l lung abscess, pigtail catheter placed January 07, 2024. Initially about 200 cc of pus obtained. During the procedure large amount of pus poured out of the tracheostomy site when patient was rolled on the left side. Status post bronchoscopy with some lavage on 01/07/2024 - lung abscess larger 1 on the right side-patient cultures are growing Pseudomonas and Klebsiella oxytoca: Slow to respond , Received other antibiotics. Currently on Levaquin and tobramycin -Acute pulmonary edema and fluid overload from hypoalbuminemic state and fluids from IV.:: Has been getting Lasix and dialysis: Both held -Altered mentation. Possibly encephalopathy. Could be delirium.: Not improving CT brain [December 06] nothing acute Neurology following EEG-evidence of generalized cerebral dysfunction and sporadic intermittent higher amplitude sharply contoured waves mainly bifrontal. Showing cortical irritability. Keppra was started on December 07 -Critical care poly- Pedro neuropathy: Slow to respond PT OT -Gallstones, asymptomatic -Small l bowel perforation at site of jejunostomy tube tip with balloon..: Portion of small bowel resected. On November 24. New J-tube was placed.- drainage to gravity:-Now discontinued December 19: J-tube blocked. J-tube replaced on December 20 over wire December 21: Leaking around the J-tube site. Feeding held December 23: J feeding was started yesterday evening but again started leaking increasingly around the J-tube site-feeding held again December 24: J-tube feeding has been held. Patient is currently having increased drainage from the J-tube site -Acute kidney injury. Possible ATN from hypotensive shock: Resolved Renal ultrasound unremarkable. Started on renal replacement therapy on November 28. Last hemodialysis on December 17. Being followed by an nephrology. Good urine output. -Nutrition Jejunostomy tube placed November [address] Ewing Received TPN-this was discontinued. TPN lipids restarted on December 24 -Lung abscess, not improving Antibiotics to continue. Pulmonary and ID following -Midline abdominal incision wound dehiscence Wound VAC placed -Acute recurrent atrial fibrillation-converted to sinus rhythm Received IV amiodarone. Cardiology following Lopressor -Acute hypoxic respiratory failure from aspiration pneumonia, status post ventilator assisted: Reintubated November 25. FiO2 35 PEEP of 5 Tracheostomy tube-by Dr. Zepeda on December 09 -Septic shock, recovered -Hypertension, recurrent Had received Cleviprex. Hydralazine added -Intermittent hypotension: Corrected Intermittent use of Levophed. 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 Also anemia of blood draw. Iron deficiency anemia Received total of 6 units of blood IV iron. -Severe thrombocytopenia. Would consider coagulation disorder secondary to infection., In the setting of underlying lymphoma.: Fluctuating with infection Hematology following. -Acute blood loss anemia, -Sacral stage II decub ulcer Dressing in place -Hypokalemia, multiple causes -Hypoglycemia -GERD PPI -Acute diarrhea secondary to tube feeding.: Resolved C. difficile ruled out. -Large superficial gastric antral ulceration involving the gastric antrum extending into the pylorus with gastric outlet obstruction. 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 -DNR made on January 12 On Precedex. IV ciprofloxacin and IV tazobactam. TPN lipids. Plan for patient to be discharged to home with hospice, [facility] hospice: Discharge plan for tomorrow as above. Past Medical History Past Medical History: GERD/Reflux History of Any Multi-Drug Resistant Organisms: None Reported Past Surgical History: Heart Catheterization Additional Past Surgical History / Comment(s): colonsocopy,spinal injection, Past Anesthesia/Blood Transfusion Reactions: No Reported Reaction Past Psychological History: No Psychological Hx Reported Smoking Status: Never smoker Past Alcohol Use History: None Reported Past Drug Use History: None Reported
--- NOTE | 2024-01-16 23:16 | P.PN ---
Subjective Progress Note Date: 01/15/24 Principal diagnosis: Reason for follow-up is pneumonia and bacteremia Patient is 73-year-old with male initial presentation to the hospital on 11/11/2021 for after the patient did have aspiration while undergoing elective endoscopy, diagnosed with a non-Hodgkin of, subsequently did have explained laparotomy for perforated small bowel abdominal washout and feeding jejunostomy tube patient did require dialysis catheter placement for dialysis during this hospital stay and tracheostomy for respiratory failure, infectious was consulted for fever. On today's evaluation that is 01/15/2024, the patient continues to be afebrile, the patient is on ventilator through the trach FiO2 is currently stable at 30% no significant purulent secretion through the ET diarrhea or any other changes reported by nursing staff. Patient white count slightly up to 17,000 creatinine is 0.76 Objective - Vital Signs Vital signs: Vital Signs Temp 98 F 01/15/24 07:00 Pulse 80 01/15/24 09:00 Resp 29 H 01/15/24 09:00 BP 130/86 01/15/24 09:00 Pulse Ox 98 01/15/24 09:00 FiO2 30 01/15/24 08:32 Intake & Output 01/14/24 01/15/24 01/15/24 18:59 06:59 18:59 Intake Total 2045 445.537 377.387 Output Total 1615 1190 375 Balance 430 -744.463 2.387 Weight 100.7 kg Intake: IV 715 55 285 0.9 Normal Saline @ KVO 25 55 15 Ceftolozane/Tazobactam 3 200 gm In Sodium Chloride 0.9 % 100 ml @ 100 mls/hr IV Q8HR [facility] Rx#:[id number] Ciprofloxacin/Dextrose 200 Pmx 400 mg In Dextrose/ Water 1 200ml.bag @ 200 mls/hr IVPB Q8H [facility] Rx#: [id number] Fluconazole in NaCl,Iso- 100 Osm 200 mg In Saline 1 100ml.bag @ 100 mls/hr IVPB DAILY [facility] Rx#: [id number] Magnesium Sulfate-D5w Pmx 100 1 gm In Dextrose/Water 1 100ml.bag @ 100 mls/hr IVPB ONCE ONE Rx#: [id number] TPN 90 270 Intake, IV Titration 1330 390.537 92.387 Amount Dexmedetomidine/0.9% NaCl 300 390.537 92.387 (Pmx) 400 mcg In Empty Bag 1 bag @ 0.2 MCG/KG/HR 5.2 mls/hr IV .[id number] [facility] Rx#:[id number] Sodium Acetate 30 meq 1030 Magnesium Sulfate gm 1 gm Calcium Gluconate 0.5 gm Potassium Phosphate 9 mmol Potassium Acetate 10 meq In Amino Acids 5 %/ Dextrose 20 % 1,000 ml @ 90 mls/hr IV .BY DURATION [facility] Rx#:[id number] Output: Chest Tube Drainage 50 0 0 Chest Tube Right 50 0 0 Drainage 0 0 0 Medial Abdomen 0 Right Abdomen 0 0 0 Right Upper Posterior 0 Chest Urine 1565 1190 375 Other: Voiding Method Indwelling Catheter Indwelling Catheter Indwelling Catheter ABP, PAP, CO, CI - Last Documented Arterial Blood Pressure 173/76 - Exam Elderly male lying in bed intubated through the trach in no distress No tachypnea or accessory muscle respiration Unlabored breathing - Labs CBC & Chem 7: 01/16/24 07:08 01/15/24 05:21 Labs: Abnormal Lab Results - Last 24 Hours (Table) 01/14/24 01/14/24 01/15/24 Range/Units 12:54 18:49 00:16 WBC (3.8-10.6) k/uL RBC (4.30-5.90) m/uL Hgb (13.0-17.5) gm/dL Hct (39.0-53.0) % RDW (11.5-15.5) % Sodium (137-145) mmol/L BUN (9-20) mg/dL Glucose (74-99) mg/dL POC Glucose (mg/dL) 220 H 197 H 214 H (70-110) mg/dL Calcium (8.4-10.2) mg/dL 01/15/24 01/15/24 01/15/24 Range/Units 05:21 05:21 06:23 WBC 17.0 H (3.8-10.6) k/uL RBC 2.69 L (4.30-5.90) m/uL Hgb 7.9 L (13.0-17.5) gm/dL Hct 25.1 L (39.0-53.0) % RDW 17.2 H (11.5-15.5) % Sodium 130 L (137-145) mmol/L BUN 40 H (9-20) mg/dL Glucose 193 H (74-99) mg/dL POC Glucose (mg/dL) 221 H (70-110) mg/dL Calcium 7.1 L (8.4-10.2) mg/dL Assessment and Plan (1) Sepsis Current Visit: Yes Status: Acute Code(s): A41.9 - SEPSIS, UNSPECIFIED ORGANISM SNOMED Code(s): 96341545 (2) Pneumonia Current Visit: Yes Status: Acute Code(s): J18.9 - PNEUMONIA, UNSPECIFIED ORGANISM SNOMED Code(s): 616290012 (3) Bacteremia Current Visit: Yes Status: Acute Code(s): R78.81 - BACTEREMIA SNOMED Code(s): 8200272 Plan: 1patient with complicated pneumonia and lung abscess on the CT status post drainage catheter placement by interventional radiology subsequently did have purulent pleural fluid which has been cultured did have a chest tube and is growing Pseudomonas with slightly different sensitivity from the sputum Pseudomonas aeruginosa. 2-patient also have evidence of retro vesicular abscess on the CT abdominal pelvis, this has been discussed with the surgical team on the case in person however mention patient would not be able to tolerate any further surgery. 3patient pleural fluid cultures are growing Pseudomonas aeruginosa that is sensitive to Zerbaxa as well as tobramycin and Cipro and also growing Alejandra albicans 4patient is currently on Cipro, Diflucan with a goal possible hospice Zerbaxa will be discontinued after discussion with the pharmacy Dictation was produced using [employer] dictation software. please excuse any grammatical, word or spelling errors. Time with Patient: Less than 30
--- NOTE | 2024-01-16 23:17 | P.PN ---
Subjective Progress Note Date: 01/16/24 Principal diagnosis: Reason for follow-up is pneumonia and bacteremia Patient is 73-year-old with male initial presentation to the hospital on 11/11/2021 for after the patient did have aspiration while undergoing elective endoscopy, diagnosed with a non-Hodgkin of, subsequently did have explained laparotomy for perforated small bowel abdominal washout and feeding jejunostomy tube patient did require dialysis catheter placement for dialysis during this hospital stay and tracheostomy for respiratory failure, infectious was consulted for fever. On today's evaluation that is 01/16/2024, Patient is afebrile patient remains to be on the ventilator through the trach FiO2 stable at 30% patient is hemodynamic stable not requiring any pressor support no vomiting or diarrhea has been reported. Patient white count is 12.3 creatinine is 0.76 as of yesterday Objective - Vital Signs Vital signs: Vital Signs Temp 97.9 F 01/16/24 08:00 Pulse 70 01/16/24 09:00 Resp 21 01/16/24 09:00 BP 131/86 01/16/24 09:00 Pulse Ox 99 01/16/24 09:00 FiO2 30 01/16/24 08:00 Intake & Output 01/15/24 01/16/24 01/16/24 18:59 06:59 18:59 Intake Total 2631.098 3566.627 285 Output Total 1385 1275 300 Balance 9489.598 1982.627 -15 Weight 100.2 kg Intake: IV 1140 2140 285 0.9 Normal Saline @ KVO 60 60 5 Ceftolozane/Tazobactam 3 1000 100 gm In Sodium Chloride 0.9 % 100 ml @ 100 mls/hr IV Q8HR [facility] Rx#:[id number] TPN 1080 1080 180 Intake, IV Titration 7044.071 8897.627 Amount Dexmedetomidine/0.9% NaCl 461.098 385.627 (Pmx) 400 mcg In Empty Bag 1 bag @ 0.2 MCG/KG/HR 5.2 mls/hr IV .[id number] [facility] Rx#:[id number] Mvi, Adult No.4 with Vit 1041 K 10 ml Trace (Conc-1Ml/ Dose) 1 ml Sodium Acetate 30 meq Magnesium Sulfate gm 1 gm Calcium Gluconate 0.5 gm Potassium Phosphate 9 mmol Potassium Acetate 10 meq In Amino Acids 5 %/ Dextrose 20 % 1,000 ml @ 90 mls/hr IV .BY DURATION [facility] Rx#:[id number] Sodium Acetate 30 meq 1030 Magnesium Sulfate gm 1 gm Calcium Gluconate 0.5 gm Potassium Phosphate 9 mmol Potassium Acetate 10 meq In Amino Acids 5 %/ Dextrose 20 % 1,000 ml @ 90 mls/hr IV .BY DURATION [facility] Rx#:[id number] Output: Chest Tube Drainage 50 0 Chest Tube Right 50 0 Drainage 60 0 0 Medial Abdomen 0 0 0 Right Abdomen 60 0 0 Right Upper Posterior 0 0 0 Chest Urine 1275 1275 300 Other: Voiding Method Indwelling Catheter Indwelling Catheter Indwelling Catheter # Bowel Movements 1 ABP, PAP, CO, CI - Last Documented Arterial Blood Pressure 173/76 - Exam Elderly male lying in bed intubated through the trach in no distress No tachypnea or accessory muscle respiration Unlabored breathing - Labs CBC & Chem 7: 01/16/24 07:08 01/15/24 05:21 Labs: Abnormal Lab Results - Last 24 Hours (Table) 01/15/24 01/15/24 01/15/24 Range/Units 11:43 17:27 23:08 WBC (3.8-10.6) k/uL RBC (4.30-5.90) m/uL Hgb (13.0-17.5) gm/dL Hct (39.0-53.0) % MCV (80.0-100.0) fL MCHC (31.0-37.0) g/dL RDW (11.5-15.5) % Neutrophils # (1.3-7.7) k/uL Macrocytosis POC Glucose (mg/dL) 165 H 190 H 223 H (70-110) mg/dL 01/16/24 01/16/24 Range/Units 05:30 07:08 WBC 12.3 H (3.8-10.6) k/uL RBC 2.22 L (4.30-5.90) m/uL Hgb 6.5 L* (13.0-17.5) gm/dL Hct 24.3 L (39.0-53.0) % MCV 109.3 H D (80.0-100.0) fL MCHC 26.8 L (31.0-37.0) g/dL RDW 17.7 H (11.5-15.5) % Neutrophils # 8.8 H (1.3-7.7) k/uL Macrocytosis Marked A POC Glucose (mg/dL) 173 H (70-110) mg/dL Assessment and Plan (1) Sepsis Current Visit: Yes Status: Acute Code(s): A41.9 - SEPSIS, UNSPECIFIED ORGANISM SNOMED Code(s): 26135961 (2) Pneumonia Current Visit: Yes Status: Acute Code(s): J18.9 - PNEUMONIA, UNSPECIFIED ORGANISM SNOMED Code(s): 383575520 (3) Bacteremia Current Visit: Yes Status: Acute Code(s): R78.81 - BACTEREMIA SNOMED Code(s): 9323670 Plan: 1patient with complicated pneumonia and lung abscess on the CT status post drainage catheter placement by interventional radiology subsequently did have purulent pleural fluid which has been cultured did have a chest tube and is growing Pseudomonas with slightly different sensitivity from the sputum Pseudomonas aeruginosa. 2-patient also have evidence of retro vesicular abscess on the CT abdominal pelvis, this has been discussed with the surgical team on the case in person however mention patient would not be able to tolerate any further surgery. 3patient pleural fluid cultures are growing Pseudomonas aeruginosa that is sensitive to Zerbaxa as well as tobramycin and Cipro and also growing Alejandra albicans 4patient is currently on Cipro, Diflucan with a goal possible hospice and plan is for tomorrow, both Cipro and Diflucan can be discontinued discussed with admitting physician at the bedside question answered Dictation was produced using [employer] dictation software. please excuse any grammatical, word or spelling errors. Time with Patient: Less than 30
[2024-01-16 23:42] LABS: Glucose,Whole Blood 223 mg/dL (70-110)
[2024-01-17 06:17] LABS: Glucose,Whole Blood 181 mg/dL (70-110)
[2024-01-17 07:52] LABS: African American GFR (CKD) >90 (>60 ml/min/1.73 sqM); Anion Gap 5 mmol/L; Blood Urea Nitrogen 34 mg/dL (9-20); Calcium 6.9 mg/dL (8.4-10.2); Carbon Dioxide 23 mmol/L (22-30); Chloride 104 mmol/L (98-107); Glucose 180 mg/dL (74-99); Magnesium 1.6 mg/dL (1.6-2.3); Non-African American GFR(CKD) >90 (>60 ml/min/1.73 sqM); Phosphorus 3.2 mg/dL (2.5-4.5); Potassium 3.3 mmol/L (3.5-5.1); Sodium 132 mmol/L (137-145)
--- NOTE | 2024-01-17 08:14 | P.PN ---
Subjective Progress Note Date: 01/16/24 01/16/2024: Patient was seen for follow-up. Patient's son and patient's were present. Apparently patient continues to have very poor lung function, cannot be weaned off the ventilator. His chest x-ray revealed bibasilar infiltrates, stable. Patient is fully alert and awake, on ventilator via tracheostomy. Patient follows directions very well. 01/03/2024: Patient was seen for a follow-up. Patient's was present. She is mentioning that patient has developed bigger cuff leak from the tracheostomy. Patient is currently on propofol 10 mcg/kg/min. 01/02/2024: Patient was seen for a follow-up. Patient on propofol 10 mcg/kg/min. He is clinically unchanged. 01/01/2024: Patient was seen for a follow-up. Patient continues to be significantly encephalopathic. Patient is on propofol 20 mcg/kg/min. Patient has developed air leak from tracheostomy. 12/30/2023: Patient was seen for follow-up. Patient's daughter was present. Patient currently on propofol 35 mcg/kg/min. Patient continues to have sepsis, pneumonia being treated. Patient currently on Eraxis, Zerbaxa, daptomycin. Per patient's daughter, patient's motor improvement has regressed since back on propofol. Previously was doing better on Precedex. 12/22/2023: Patient was seen for a follow-up. Patient's was also present today. She states that she is doing better, but right now he has received Dilaudid, therefore somnolent. 12/20/2023: Patient was seen for follow-up. Patient's daughter and patient's are both present. Patient apparently has started responding remarkably. Patient is moving his lower extremities proximally and distally quite well, improved within the last 24 hours. Also able to move his arms well. Still no mental health unit lead psychologist, but approximately moving better. 12/19/2023: Patient was seen for a follow-up. Patient's and patient's daughter were present today. Patient is clinically unchanged. Continues to be very weak in the arms and legs. 12/18/2023: Patient was seen for a follow-up. Patient is much more alert and awake. He is off sedation. Please refer to examination below. 12/17/2023: Patient was seen for a follow-up. Patient's was also present, who believes that patient is doing better. Patient is nodding appropriately. He is still very weak in the arms and legs, not able to follow directions otherwise. Patient nods "no" for headache. Patient has tracheostomy. 12/16/2023: Patient was seen for a follow-up. Patient is laying in the bed, severely encephalopathic. Patient now has tracheostomy. Patient currently on Precedex 0.2 mcg/kg/h. Also on vancomycin. Patient getting hemodialysis as of now. 12/08/2023: Patient was seen for a follow-up. Patient's was also present. Per nursing report, with sedation holiday, patient opens eyes, but does not follow commands, does not track. Does not even response to yes/no questions. Patient does move right arm sometimes. Patient starts desynchronized ventilation therefore has to be put back on Precedex. Patient currently on Precedex 0.6 g per program per hour. Objective - Vital Signs Vital signs: Vital Signs Temp 97.8 F 01/16/24 12:00 Pulse 71 01/16/24 13:00 Resp 21 01/16/24 13:00 BP 139/94 01/16/24 13:00 Pulse Ox 99 01/16/24 13:00 FiO2 30 01/16/24 13:00 Intake & Output 01/15/24 01/16/24 01/16/24 18:59 06:59 18:59 Intake Total 2631.098 3566.627 770 Output Total 1385 1275 1125 Balance 2070.233 6827.627 -355 Weight 100.2 kg 100.2 kg Intake: IV 1140 2140 570 0.9 Normal Saline @ KVO 60 60 20 Ceftolozane/Tazobactam 3 1000 100 gm In Sodium Chloride 0.9 % 100 ml @ 100 mls/hr IV Q8HR [facility] Rx#:[id number] TPN 1080 1080 450 Intake, IV Titration 4874.292 3488.627 200 Amount Dexmedetomidine/0.9% NaCl 461.098 385.627 200 (Pmx) 400 mcg In Empty Bag 1 bag @ 0.2 MCG/KG/HR 5.2 mls/hr IV .[id number] [facility] Rx#:[id number] Mvi, Adult No.4 with Vit 1041 K 10 ml Trace (Conc-1Ml/ Dose) 1 ml Sodium Acetate 30 meq Magnesium Sulfate gm 1 gm Calcium Gluconate 0.5 gm Potassium Phosphate 9 mmol Potassium Acetate 10 meq In Amino Acids 5 %/ Dextrose 20 % 1,000 ml @ 90 mls/hr IV .BY DURATION [facility] Rx#:[id number] Sodium Acetate 30 meq 1030 Magnesium Sulfate gm 1 gm Calcium Gluconate 0.5 gm Potassium Phosphate 9 mmol Potassium Acetate 10 meq In Amino Acids 5 %/ Dextrose 20 % 1,000 ml @ 90 mls/hr IV .BY DURATION [facility] Rx#:[id number] Output: Chest Tube Drainage 50 0 200 Chest Tube Right 50 0 200 Drainage 60 0 100 Medial Abdomen 0 0 0 Right Abdomen 60 0 100 Right Upper Posterior 0 0 0 Chest Urine 1275 1275 825 Other: Voiding Method Indwelling Catheter Indwelling Catheter Indwelling Catheter # Bowel Movements 1 ABP, PAP, CO, CI - Last Documented Arterial Blood Pressure 173/76 - Exam On examination patient is laying in the bed. Patient is intubated, with tracheostomy. Patient is fully alert and awake, very interactive. Pupils are equal, round and reacting, face is symmetric. Patient squeezing hands about 3+ on the right, 3 - on the left. Patient able to wiggle his feet very well, and able to move his legs proximally to some extent as well. - Labs CBC & Chem 7: 01/16/24 07:08 01/17/24 05:17 Labs: Abnormal Lab Results - Last 24 Hours (Table) 01/15/24 01/15/24 01/16/24 Range/Units 17:27 23:08 05:30 WBC (3.8-10.6) k/uL RBC (4.30-5.90) m/uL Hgb (13.0-17.5) gm/dL Hct (39.0-53.0) % MCV (80.0-100.0) fL MCHC (31.0-37.0) g/dL RDW (11.5-15.5) % Neutrophils # (1.3-7.7) k/uL Macrocytosis POC Glucose (mg/dL) 190 H 223 H 173 H (70-110) mg/dL 01/16/24 01/16/24 Range/Units 07:08 11:21 WBC 12.3 H (3.8-10.6) k/uL RBC 2.22 L (4.30-5.90) m/uL Hgb 6.5 L* (13.0-17.5) gm/dL Hct 24.3 L (39.0-53.0) % MCV 109.3 H D (80.0-100.0) fL MCHC 26.8 L (31.0-37.0) g/dL RDW 17.7 H (11.5-15.5) % Neutrophils # 8.8 H (1.3-7.7) k/uL Macrocytosis Marked A POC Glucose (mg/dL) 191 H (70-110) mg/dL Assessment and Plan Assessment: * Altered mental status, likely due to toxic metabolic encephalopathy. Patient has had fluctuating course with worsening encephalopathy and then improvement. At present patient's mentation is quite normal. 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 * Sepsis * Pneumonia, persistent, lung abscess, status post drainage, growing Pseudomonas. * Chest x-ray showing ongoing bibasilar infiltrates, stable. * Ventilator dependent respiratory failure, status post tracheostomy 12/10/2023, not able to get off ventilator * Status post pulmonary edema * History of small bowel perforation at the site of jejunostomy tube tip with balloon * Peritonitis, secondary to above * Acute kidney injury, with hemodialysis started 12/05/2023 * Acute recurrent atrial fibrillation, currently in sinus mechanism * Septic shock, recovered * Bacteremia with coagulase-negative staph * Hypertension * Anemia * Thrombocytopenia, resolved * History of gastric B-cell lymphoma, with gastric outlet obstruction. Plan: * Patient's metabolic encephalopathy again has improved, but he has ongoing pulmonary condition with pneumonia, lung abscess. ID on board. On multiple antibiotics, including Cipro, Diflucan IVPB. * Patient not able to be weaned off the ventilator. * Initial EEG on 12/08/2023: It revealed generalized slowing of severe degree. This is suggestive of generalized cerebral dysfunction as can be seen with toxic metabolic encephalopathy or related to diffuse structural brain about a day. Clinical correlation is recommended. Sporadic, periodic generalized sharp-appearing waves were seen. This may suggest underlying cortical irritability. No electrographic seizure was recorded. * Repeat EEG 12/12/2023 revealed limited study because of diffuse myogenic artifact. Background slowing is suggestive of severe encephalopathy. No epileptiform activity was seen. * Patient's Keppra was decreased to 250 mg twice daily on 12/25/2023 (from 500 mg twice daily). Would recommend tapering off Keppra, once mentation and sepsis improves. * CT head performed 12/07/2023 revealed no acute intracranial process. Some atrophy. I personally reviewed CT head agree with the findings. * Patient is generalized weak. Patient has been ICU for extended period of time. Patient has developed critical illness myopathy. However he again is showing improvement in muscle strength in the arms and legs as above. * For medical management as per critical care, ID and other specialties on board. * Patient being considered for possible palliative care, and changing CODE STATUS, as per report from critical care/IM. * Family is considering taking patient home with hospice. Discussed with nursing staff. * Neurology will sign off. Please reconsult neurology if any concerns.
[2024-01-17 08:47] LABS: Anisocytosis Slight; HCT 24.2 % (39.0-53.0); Hypochromasia Slight; MCH 30.4 pg (25.0-35.0); MCHC 33.3 g/dL (31.0-37.0); Mean Platelet Volume 8.2; Platelet Count 336 k/uL (150-450); RBC 2.65 m/uL (4.30-5.90); RDW 17.3 % (11.5-15.5); WBC 16.3 k/uL (3.8-10.6)
[2024-01-17] MEDS: POTASSIUM CHLORIDE 20 MEQ in WATER FOR INJECTION 1 100ML.BAG IVPB SCH (08:49)
[2024-01-17] MEDS: MAGNESIUM SULFATE-D5W PMX 1 GM in DEXTROSE/WATER 1 100ML.BAG IVPB SCH (08:49)
[2024-01-17 09:06] LABS: HGB 8.1 gm/dL (13.0-17.5); MCV 91.4 fL (80.0-100.0)
--- NOTE | 2024-01-17 10:40 | P.PN ---
Subjective Patient is seen for follow-up for acute kidney injury. patient remains off of dialysis. Urine output 100-125 mL an hour. Patient remains on TPN. Serum creatinine 0.6 today. Sodium 132 . It is noted that there were initially plans for hospice care however the family stated that patient was awake and communicating yesterday. Objective - Vital Signs Vital signs: Vital Signs Temp 97.8 F 01/17/24 08:00 Pulse 69 01/17/24 10:00 Resp 23 01/17/24 10:00 BP 131/89 01/17/24 10:00 Pulse Ox 98 01/17/24 10:00 FiO2 30 01/17/24 08:00 Intake & Output 01/16/24 01/17/24 01/17/24 18:59 06:59 18:59 Intake Total 2749.493 3240.887 690 Output Total 1974 2024 450 Balance 602.144 7123.887 240 Weight 100.2 kg 107.6 kg Intake: IV 1140 1780 590 0.9 Normal Saline @ KVO 50 50 20 Ceftolozane/Tazobactam 3 100 gm In Sodium Chloride 0.9 % 100 ml @ 100 mls/hr IV Q8HR [facility] Rx#:[id number] Ciprofloxacin/Dextrose 400 Pmx 400 mg In Dextrose/ Water 1 200ml.bag @ 200 mls/hr IVPB Q8H [facility] Rx#: [id number] Fat Emulsion 20% 250 ml 250 In Empty Bag 1 bag @ 21 mls/hr IV TuThSa@0900 [facility] Rx#:[id number] Fluconazole in NaCl,Iso- 100 Osm 200 mg In Saline 1 100ml.bag @ 100 mls/hr IVPB DAILY [facility] Rx#: [id number] Magnesium Sulfate-D5w Pmx 100 1 gm In Dextrose/Water 1 100ml.bag @ 100 mls/hr IVPB ONCE ONE Rx#: [id number] Potassium Chloride 10 meq 100 In Water For Injection 1 100ml.bag @ 100 mls/hr IVPB Q1H [facility] Rx#: [id number] TPN 990 1080 270 Intake, IV Titration 2666.358 5567.887 100 Amount Dexmedetomidine/0.9% NaCl 390.493 398.887 100 (Pmx) 400 mcg In Empty Bag 1 bag @ 0.2 MCG/KG/HR 5.2 mls/hr IV .[id number] [facility] Rx#:[id number] Fat Emulsion 20% 250 ml 189 21 In Empty Bag 1 bag @ 21 mls/hr IV TuThSa@0900 [facility] Rx#:[id number] Mvi, Adult No.4 with Vit 1041 K 10 ml Trace (Conc-1Ml/ Dose) 1 ml Sodium Acetate 30 meq Magnesium Sulfate gm 1 gm Calcium Gluconate 0.5 gm Potassium Phosphate 9 mmol Potassium Acetate 10 meq In Amino Acids 5 %/ Dextrose 20 % 1,000 ml @ 90 mls/hr IV .BY DURATION [facility] Rx#:[id number] Sodium Acetate 30 meq 1030 Magnesium Sulfate gm 1 gm Calcium Gluconate 0.5 gm Potassium Phosphate 9 mmol Potassium Acetate 10 meq In Amino Acids 5 %/ Dextrose 20 % 1,000 ml @ 90 mls/hr IV .BY DURATION [facility] Rx#:[id number] Output: Chest Tube Drainage 200 70 0 Chest Tube Right 200 70 0 Drainage 200 60 0 Medial Abdomen 0 0 Right Abdomen 200 60 Right Upper Posterior 0 Chest Urine 1575 1895 450 Other: Voiding Method Indwelling Catheter Indwelling Catheter Indwelling Catheter # Bowel Movements 1 ABP, PAP, CO, CI - Last Documented Arterial Blood Pressure 173/76 - Exam patient is on the vent. FiO2 30% Right chest tube in place Examination of the heart S1 and S2 Examination of the lungs bilateral breath sounds are heard Abdomen is soft, ventral hernia noted along with wound VAC Examination of lower extremities shows edema 1+ bilaterally in upper and lower extremities - Labs CBC & Chem 7: 01/17/24 05:48 01/17/24 05:17 Labs: Abnormal Lab Results - Last 24 Hours (Table) 01/16/24 01/16/24 01/16/24 Range/Units 11:21 16:55 23:40 WBC (3.8-10.6) k/uL RBC (4.30-5.90) m/uL Hgb (13.0-17.5) gm/dL Hct (39.0-53.0) % RDW (11.5-15.5) % Sodium (137-145) mmol/L Potassium (3.5-5.1) mmol/L BUN (9-20) mg/dL Glucose (74-99) mg/dL POC Glucose (mg/dL) 191 H 185 H 223 H (70-110) mg/dL Calcium (8.4-10.2) mg/dL 01/17/24 01/17/24 01/17/24 Range/Units 05:17 05:48 05:48 WBC 16.3 H (3.8-10.6) k/uL RBC 2.65 L (4.30-5.90) m/uL Hgb 8.1 L D (13.0-17.5) gm/dL Hct 24.2 L (39.0-53.0) % RDW 17.3 H (11.5-15.5) % Sodium 132 L (137-145) mmol/L Potassium 3.3 L (3.5-5.1) mmol/L BUN 34 H (9-20) mg/dL Glucose 180 H (74-99) mg/dL POC Glucose (mg/dL) 181 H (70-110) mg/dL Calcium 6.9 L (8.4-10.2) mg/dL Assessment and Plan Assessment: 1. Acute kidney injury secondary to ATN secondary to septic shock. Creatinine 0.86 on admission and up to 5.38 dated November 29, 2023. nonoliguric. UA fairly benign. No hydronephrosis noted on imaging. Started hemodialysis on 11/29/2023 for worsening volume status and acute kidney injury. Renal function has improved and dialysis catheter was discontinued on 12/28/2023 2. Perforated small bowel status post exploratory laparotomy with abdominal washout, small bowel resection and J-tube replacement November 25, 2023. 3. A-fib with RVR. s/p amiodarone drip. 4. Recently diagnosed gastric B-cell lymphoma. 5. Septic shock. 6. Hypokalemia status post replacement. TPN has been adjusted 7. Hypophosphatemia, being supplemented in TPN. 8. Encephalopathy Plan: replace potassium Adjust TPN based on labs in a.m.
[2024-01-17 11:23] LABS: Glucose,Whole Blood 215 mg/dL (70-110)
--- NOTE | 2024-01-17 11:24 | P.PN ---
Subjective Progress Note Date: 01/17/24 Principal diagnosis: Acute hypoxic respiratory failure requiring intubation mechanical ventilation secondary to aspiration. This is a 73-year-old white male with history of chronic abdominal pain for the last 8 months has been treated with Protonix 40 mg daily for the last 3 months with no improvement. Patient had a 22 pound weight loss in the last [address] of the abdomen and pelvis 3 weeks ago showed thickening of the antral wall with pathological adenopathy posterior to the stomach suspicious of neoplasm. Today the patient underwent elective upper endoscopy to evaluate further, patient received IV sedation by anesthesia endoscope was inserted into the mouth, esop hagus was intubated without any difficulty there was evidence of large amount of liquid and solid food noted in the stomach suggestive of gastric outlet obstruction. Scope could not be advanced through the pylorus, however in the prepyloric area there was a large superficial ulceration identified with multiple biopsies were done from this area. The body cardia and fundus could not adequately visualize because of large amount of retained food in the stomach. Scope was withdrawn back to the stomach and upon careful examination the mucosa of the antrum body and cardia as well as the fundus appeared normal. Procedure was being performed and biopsies were done patient threw up and subsequently became hypoxic there was clearly evidence of witnessed aspiration anesthesia intubated the patient, procedure was terminated, and the patient was transferred to the ICU, this consult was initiated. Patient is now on assist- control rate of 20 tidal volume 500 FiO2 70% PEEP of 10 ABG is pending, earlier ABG showed profound hypoxia patient is on propofol at 50 mcg/kg/min, next ABG is pending. Chest x-ray showed chronic changes without evidence of acute pulmonary disease. 01/10/2024, the patient is on low-dose Precedex. Currently comfortable, sensitive to mechanical ventilator. Output from the pigtail has dropped and the patient continues to have a positive airleak. The chest x-ray shows bilateral consolidation worse on the right and there is a small right apical pneumothorax. Pigtail catheter is in a good location. Blood gas showed a pH of 7.48 with a pCO2 of 35 and a pO2 of 83. He is on assist-control mode with rate of 20, tidal volume of 600, FiO2 30% with a PEEP of 5. RAYA drain output is serosanguineous. TPN is at 90 cc an hour. Fluid balance is -700 cc. The white cell count is at 15.4, hemoglobin is at 6.7 and the patient was given a unit of packed RBC and a platelet count is 188. Electrolytes show a BUN of 46 with a creatinine of 0.7, sodium of 135, potassium level of 3.3. Antibiotics has been modified to a combination of ciprofloxacin and tobramycin as the patient showed quinolone sensitive Pseudomonas in the sputum and in the drain the abscess from the right lung. 01/11/2024, the patient is being seen for a follow-up. Patient is currently on low-dose Precedex at 0.2 mcg/kg/min. Calm and comfortable, no significant coughing. Remains on the mechanical ventilator./On the same vent setting which includes assist-control of 20, tidal volume of 600, FiO2 30% with a PEEP of 5. Chest x-ray shows a right apical pneumothorax, extensive consolidation of the right lung and some limited consolidation in the left and the catheter is in place with purulent output. There is also possibility through the pigtail catheter. Tracheostomy tube is in good location. Remains on tobramycin and ciprofloxacin. The white cell count of 13.6, hemoglobin 8.4 and platelet count is at 208. Blood gas from today showed a pH of 7.48 with a pCO2 of 33 and pO2 of 93. Sodium is at 134, potassium is at 3.7, BUN is 44 with a creatinine of 0.8. LFTs are normal and the patient has an alkaline phosphatase of 233 as the patient continues to receive TPN for nutritional support. Triglyceride levels at 187. Otherwise, no other significant changes condition. Cardiac rhythm remains sinus. The patient is producing adequate amount of urine output. Extremely debilitated, extremely weak, J-tube is not functional and there is leak around the J-tube. The patient was seen again by general surgery and there is no plan to exchange the J-tube. Concern of some leak around the J-tube and based on that an ostomy appliance will be applied around the J-tube. On 01/12/2024, clinically unchanged, remains on Precedex at 0.7 mcg/kg/h. Remains on TPN for nutritional support. Remains on same ventilator settings with assist-control mode rate of 20, tidal volume of 500, FiO2 30% with a PEEP of 5. No blood gases are available from today. Repeat chest x-ray shows stable findings. Stable right apical pneumothorax. Consolidation involving the right lung and the left base remains unchanged. Sputum sample was positive for Pseudomonas aeruginosa and the patient remains on a combination of ciprofloxacin and tobramycin. The patient has positive air leak in his pigtail catheter and total amount of output overnight and over the past 12 hours has been in the order of 80 cc. Extremely debilitated. Extremely weak. Not coherent although arousable. evaluated today on 01/13/2024, remains in the ICU, patient remains intubated and mechanically ventilated, he is on volume control plus with tidal volume of 500 rate 20 FiO2 30% and PEEP of 5 ABG showed a pO2 of 90 pCO2 35 pH of 7.45. No changes were made in ventilator settings. Patient remains on Precedex at 0.8 mcg/kg/h remains on TPN at 90 cc/h patient remains on multiple antibiotics including Cipro fluconazole and tobramycin patient has resistant Pseudomonas in the sputum. Continues to have an air leak in the right-sided chest tube and he has a pigtail catheter in place. Chest x-ray continues showed significant airspace disease bilaterally. Patient is arousable but does not follow any instructions, he is a bit encephalopathic. Family is at bedside, and I had a long discussion with the family regarding his condition and prognosis.WBC count today 6.2 hemoglobin 8.1. Basic metabolic profile is normal renal profile is normal bicarb is 20. Albumin is 1.9. Patient is receiving Dilaudid intermittently for agitation. And that seems to calm down along with Precedex. Patient was seen today on 01/14/2024, patient remains in the ICU, intubated and mechanically ventilated, on volume control plus mode of mechanical ventilation with rate of 20 tidal volume 500 FiO2 30% and PEEP of 5 ABG showed a pO2 of 43 pCO2 of 40 pH of 7.3, however I believe there is an error in the pO2 since his O2 saturation is presently 100%. Patient remains on Precedex, 1.2 mcg/kg/h is also on TPN at 90 cc/h antibiotics were changed he is now on Zerbaxa Cipro and fluconazole. Patient had a -2.8 L over the last 24 hours, today he is awake, follows simple instructions. Remains intubated and mechanically ventilated, and noted to be a bit tachypneic. Patient is not requiring any pressors not requiring any propofol, hemodynamically stable, no chest x-ray was done today, continues to have air leak in the Pleur-evac. WBC is 15.3 hemoglobin 8.3, basic metabolic profile is normal renal profile is normal Patient was evaluated today on 01/15/2024, remains in the ICU, remains intubated and mechanically ventilated. Remains on volume control plus mode of mechanical ventilation with a rate of 20 tidal volume 500 FiO2 30% and PEEP of 5 No ABG was done today. Patient is awake, he looks comfortable, has I will give him a trial of pressure support of 14 and CPAP today. Continues to have multiple drips Precedex, at 1.3 mcg/kg/h he is also on TPN at 90 cc/h receiving Dilaudid 1 mg every 2 hours as needed patient is on the backside, ciprofloxacin, and fluconazole. Patient is to be placed on hospice possibly in the next 24 hours, family discussed his condition with hospice staff apparently yesterday. And the plan is to proceed with hospice on . Continues to have air leak from the pigtail catheter/pleural VAC. Chest x-ray continues to show bilateral airspace disease specially in the right lower lobe and left lower lobe, sputum has been positive for resistant Pseudomonas WBC count is 17 hemoglobin 7.9 basic metabolic profile is normal BUN is 40 creatinine 0.76 Patient was reevaluated today on 01/16/2024, patient remains in the ICU, intubated and mechanically ventilated, he is on pressure control mode of mechanical ventilation, with rate 20, pressure control of 15, inspiratory time of 0.8, FiO2 30% and PEEP of 5. Hemoglobin today is down to 6.5 WBC count is 12.3 hematocrit is 24.3 family is now requesting to have hospice at home, however the patient will not be able to make it home unless we could temporarily arrange for portable ventilator, will look into the possibility of doing so. In the meantime patient remains on treatment for his infections an Pseudomonas in the sputum, and in the pleural effusion fluid.d patient remains on TPN remains on Precedex at 1.5 mcg/kg/h. Patient is extremely frail, ill looking, chronically ill, and extremely weak Patient was reevaluated today on 01/17/2024, patient was supposed to be sent home today with hospice to follow at home, however the family today/ change her mind, and asking to consider palliative care, she is also asking for a second opinion but she is not specific about the second opinion, explained to her that the only 3 pharmacy stock clerk that we have in this institution is myself Dr. Jimenez and Dr. Nieves and we have all given the same opinion, and if she could find a place where they could accept him to transfer to another institution, I will be more than happy to do so patient was declined transfer to [facility] he was also declined transfer to the [facility]. Today he is on pressure control mode of mechanical ventilation basically unchanged compared to yesterday. He remains on Precedex 1.4 mcg/kg/h remains on TPN, still could not use his J-tube. Patient is intermittently on Dilaudid, an tibiotics arce he is receiving Cipro and fluconazole. Patient had multiple attempts to wean, could not tolerate more than few hours of pressure support of 14 and CPAP this has been done quite frequently and sometimes he does not even tolerate the switch from pressure control mode of mechanical ventilation to pressure support of mechanical ventilation. Patient is definitely a failure to wean and multiple attempts have failed. Patient has critical illness polyneuropathy he continues to have some nonspecific airspace disease bilaterally continues to have a pigtail catheter in place, and continues to have air leak,WBC count today is 16.3 hemoglobin 8.1 electrolytes showed low potassium of 3.3 being addressed accordingly renal profile is normal. Chest x- ray today is actually showing improvement compared to the previous x-rays he had all along. With significant improvement in the right upper lobe and the right lower lobe, continues to have some infiltrate in the left lower lobe Castriz seems to be intact Objective - Vital Signs Vital signs: Vital Signs Temp 97.8 F 01/17/24 08:00 Pulse 65 01/17/24 11:00 Resp 26 H 01/17/24 11:00 BP 136/87 01/17/24 11:00 Pulse Ox 99 01/17/24 11:00 FiO2 30 01/17/24 08:00 Intake & Output 01/16/24 01/17/24 01/17/24 18:59 06:59 18:59 Intake Total 2749.493 3240.887 785 Output Total 1974 2024 600 Balance 846.287 8415.887 185 Weight 100.2 kg 107.6 kg Intake: IV 1140 1780 685 0.9 Normal Saline @ KVO 50 50 25 Ceftolozane/Tazobactam 3 100 gm In Sodium Chloride 0.9 % 100 ml @ 100 mls/hr IV Q8HR [facility] Rx#:[id number] Ciprofloxacin/Dextrose 400 Pmx 400 mg In Dextrose/ Water 1 200ml.bag @ 200 mls/hr IVPB Q8H [facility] Rx#: [id number] Fat Emulsion 20% 250 ml 250 In Empty Bag 1 bag @ 21 mls/hr IV TuThSa@0900 [facility] Rx#:[id number] Fluconazole in NaCl,Iso- 100 Osm 200 mg In Saline 1 100ml.bag @ 100 mls/hr IVPB DAILY [facility] Rx#: [id number] Magnesium Sulfate-D5w Pmx 100 1 gm In Dextrose/Water 1 100ml.bag @ 100 mls/hr IVPB ONCE ONE Rx#: [id number] Potassium Chloride 10 meq 100 In Water For Injection 1 100ml.bag @ 100 mls/hr IVPB Q1H [facility] Rx#: [id number] TPN 990 1080 360 Intake, IV Titration 6981.258 8231.887 100 Amount Dexmedetomidine/0.9% NaCl 390.493 398.887 100 (Pmx) 400 mcg In Empty Bag 1 bag @ 0.2 MCG/KG/HR 5.2 mls/hr IV .[id number] [facility] Rx#:[id number] Fat Emulsion 20% 250 ml 189 21 In Empty Bag 1 bag @ 21 mls/hr IV TuThSa@0900 [facility] Rx#:[id number] Mvi, Adult No.4 with Vit 1041 K 10 ml Trace (Conc-1Ml/ Dose) 1 ml Sodium Acetate 30 meq Magnesium Sulfate gm 1 gm Calcium Gluconate 0.5 gm Potassium Phosphate 9 mmol Potassium Acetate 10 meq In Amino Acids 5 %/ Dextrose 20 % 1,000 ml @ 90 mls/hr IV .BY DURATION [facility] Rx#:[id number] Sodium Acetate 30 meq 1030 Magnesium Sulfate gm 1 gm Calcium Gluconate 0.5 gm Potassium Phosphate 9 mmol Potassium Acetate 10 meq In Amino Acids 5 %/ Dextrose 20 % 1,000 ml @ 90 mls/hr IV .BY DURATION [facility] Rx#:[id number] Output: Chest Tube Drainage 200 70 0 Chest Tube Right 200 70 0 Drainage 200 60 0 Medial Abdomen 0 0 Right Abdomen 200 60 Right Upper Posterior 0 Chest Urine 1575 1895 600 Other: Voiding Method Indwelling Catheter Indwelling Catheter Indwelling Catheter # Bowel Movements 1 ABP, PAP, CO, CI - Last Documented Arterial Blood Pressure 173/76 - Exam General: Revealed 73-year-old white male on mechanical ventilation, pressure control mode of mechanical ventilation on Precedex, patient looks frail extremely weak, and chronically ill Skin: Skin is warm and dry and no rashes or lesions are noted. Eye: Pupils are equal, round and reactive to light, extra-ocular movements are intact; there is normal conjunctiva bilaterally. Ears, nose, mouth and throat: There are moist mucous membranes and no oral lesions. Neck: The neck is supple, there is no tenderness or JVD. Tracheostomy is intact. Cardiovascular: There is a regular rate and rhythm. No murmur, rub or gallop is appreciated. Respiratory: Crackles at the bases, no rhonchi no wheezes, right-sided pigtail catheter is noted, evidence of air leak noted. Gastrointestinal: no rebound, no guarding, no bowel sounds, wound VAC is noted jejunostomy tube is noted, continues to have some leak around the jejunostomy tube, and it is nonfunctional Musculoskeletal: No deformities and no limitation range of motion other the patient seems to be generally weak. Neurological: Patient is awake ,generally weak, follows simple instructions today like squeezing hands and wiggling toes. Extremities: Trace of bipedal edema - Labs CBC & Chem 7: 01/17/24 05:48 01/17/24 05:17 Labs: Abnormal Lab Results - Last 24 Hours (Table) 01/16/24 01/16/24 01/16/24 Range/Units 11:21 16:55 23:40 WBC (3.8-10.6) k/uL RBC (4.30-5.90) m/uL Hgb (13.0-17.5) gm/dL Hct (39.0-53.0) % RDW (11.5-15.5) % Sodium (137-145) mmol/L Potassium (3.5-5.1) mmol/L BUN (9-20) mg/dL Glucose (74-99) mg/dL POC Glucose (mg/dL) 191 H 185 H 223 H (70-110) mg/dL Calcium (8.4-10.2) mg/dL 01/17/24 01/17/2401/16/24 Range/Units 05:17 05:48 05:48 WBC 16.3 H (3.8-10.6) k/uL RBC 2.65 L (4.30-5.90) m/uL Hgb 8.1 L D (13.0-17.5) gm/dL Hct 24.2 L (39.0-53.0) % RDW 17.3 H (11.5-15.5) % Sodium 132 L (137-145) mmol/L Potassium 3.3 L (3.5-5.1) mmol/L BUN 34 H (9-20) mg/dL Glucose 180 H (74-99) mg/dL POC Glucose (mg/dL) 181 H (70-110) mg/dL Calcium 6.9 L (8.4-10.2) mg/dL Assessment and Plan Assessment: Impression: Acute hypoxic respiratory failure requiring intubation mechanical ventilation secondary to aspiration. Status post tracheostomy on 12/10/2023 The patient has bilateral pneumonia with a cavitary infiltrate in the right upper lobe, secondary to Pseudomonas aeruginosa and Citrobacter and the patient is currently on a combination of ciprofloxacin, fluconazole, and tobramycin CAT scan of the chest done on 12/17/2023 was reviewed and the patient has a cavitating cyst/abscess in the posterior aspect of the right upper lobe in addition to patchy opacities bilaterally right more than left consistent with pneumonia,/gram-negative pneumonia. The patient had a pigtail catheter inserted with drainage of the right lung abscess. The bronchial washing is positive for Pseudomonas aeruginosa, quinolone sensitive and the cultures from the pigtail catheter/lung abscess was also positive for Pseudomonas aeruginosa.. Status post J-tube placement 11/16/2023, multiple complications since then related to the J-tube placement requiring multiple surgeries. Ongoing leak around the J-tube, improving still cannot use the J-tube for feeding Persistent right apical pneumothorax with persistent air leak noted in the pigtail catheter Acute peritonitis secondary to above, secondary to small bowel perforation with abdominal contamination Septic shock secondary to above Paroxysmal atrial fibrillation Acute kidney injury requiring hemodialysis secondary to sepsis and septic shock, last hemodialysis was on the , apparently patient is not requiring hemodialysis since then and nephrology planning to discontinue his dialysis catheter from the left groin Weight loss secondary to non-Hodgkin's lymphoma Acute aspiration pneumonia/right upper lobe lung abscess Acute aspiration during upper endoscopy most likely secondary to gastric outlet obstruction secondary to non-Hodgkin's lymphoma based on the pathology from stomach biopsies 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 Critical illness polyneuropathy Metabolic encephalopathy Malfunctioning of the J-tube Recommendation: Continue ventilatory support multiple attempts for weaning of this patient have failed, patient was given trials of pressure support 14/CPAP many times over the last couple of months, his last trial was yesterday and he failed yesterday and the day prior. Continue antibiotics and antifungal therapy, as per ID on the case Continue Dilaudid and Precedex Continue nutritional support/TPN Consult physical therapy may benefit from physical therapy and Occupational Therapy and chest physical therapy although patient is a poor candidate for all of these and he could not tolerate much. He is extremely weak Continue GI and DVT prophylaxis Family changed their mind regarding hospice, and the plan now is to continue present supportive care measures discussed with discharge planning to reevaluate or consult select care specialty Remains extremely and critically ill Explained to the that if she could get him accepted in any institution, I will definitely make arrangements for transfer patient has been denied at [facility] and at the [facility] Will also consider palliative care for this patient Critical care time is over 30 Will continue to follow Time with Patient: Greater than 30
[2024-01-17] MEDS: TOBRAMYCIN PER PHARMACY MISCELLANE SCH (14:17)
[2024-01-17] MEDS: SODIUM CHLORIDE 0.9% IVPB SCH (14:18)
[2024-01-17] MEDS: TOBRAMYCIN SULFATE IVPB SCH (14:18)
--- NOTE | 2024-01-17 14:30 | P.PN ---
Subjective Progress Note Date: 01/17/24 CHIEF COMPLAINT: Abdominal pain HISTORY OF PRESENT ILLNESS: Patient shon in the ICU and on mechanical ve ntilation. Patient is more awake and alert. He is able to follow commands. He is on TPN for nutrition support. There has been decreased drainage from around the J-tube. Patient's family is at bedside patient and family no longer want to proceed with hospice care. [facility] Afebrile. WBC is up from 12-16 hemoglobin 6.5 up to 8.1 with no blo od transfusion. PHYSICAL EXAM: VITAL SIGNS: Reviewed. GENERAL: frail, weak HEENT: Tracheostomy site clean dry and intact ABDOMEN: Soft. Nondistended. Midline incision with wound VAC in place and intact with granulation tissue. RAYA drain in place. RAYA tube with decrease in surrounding drainage ASSESSMENT: 1. 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 Status post J-tube placement and revision for small bowel obstruction 2. Abdominal wound dehiscence status post wound VAC placement 3. Status post tracheostomy PLAN: -press manager is working on transferring [facility] -Dr. Irby did talk with physician from [facility] as well -Wound VAC scheduled to be changed today. If [facility] cannot go to [facility] with [facility] wound VAC can do wet-to-dry dressings on midline incision wound -Continue supportive care -Continue TPN for nutrition support Physician Supply Chain Buyer note has been reviewed by physician. Signing provider agrees with the documented findings, assessment, and plan of care. Objective - Vital Signs Vital signs: Vital Signs Temp 97.9 F 01/17/24 12:00 Pulse 76 01/17/24 14:00 Resp 17 01/17/24 14:00 BP 130/88 01/17/24 14:00 Pulse Ox 99 01/17/24 14:00 FiO2 30 01/17/24 12:00 Intake & Output 01/16/24 01/17/24 01/17/24 18:59 06:59 18:59 Intake Total 2749.493 3240.887 1370 Output Total 1974 2024 105 Balance 621.863 0748.887 320 Weight 100.2 kg 107.6 kg Intake: IV 1140 1780 1170 0.9 Normal Saline @ KVO 50 50 40 Ceftolozane/Tazobactam 3 100 gm In Sodium Chloride 0.9 % 100 ml @ 100 mls/hr IV Q8HR [facility] Rx#:[id number] Ciprofloxacin/Dextrose 400 Pmx 400 mg In Dextrose/ Water 1 200ml.bag @ 200 mls/hr IVPB Q8H [facility] Rx#: [id number] Fat Emulsion 20% 250 ml 250 In Empty Bag 1 bag @ 21 mls/hr IV TuThSa@0900 [facility] Rx#:[id number] Fluconazole in NaCl,Iso- 100 Osm 200 mg In Saline 1 100ml.bag @ 100 mls/hr IVPB DAILY [facility] Rx#: [id number] Magnesium Sulfate-D5w Pmx 100 1 gm In Dextrose/Water 1 100ml.bag @ 100 mls/hr IVPB ONCE ONE Rx#: [id number] Magnesium Sulfate-D5w Pmx 100 1 gm In Dextrose/Water 1 100ml.bag @ 100 mls/hr IVPB Q1H [facility] Rx#: [id number] Potassium Chloride 10 meq 100 In Water For Injection 1 100ml.bag @ 100 mls/hr IVPB Q1H [facility] Rx#: [id number] Potassium Chloride 20 meq 100 In Water For Injection 1 100ml.bag @ 50 mls/hr IVPB Q2H [facility] Rx#: [id number] TPN 990 1080 630 Intake, IV Titration 9488.597 1945.887 200 Amount Dexmedetomidine/0.9% NaCl 390.493 398.887 200 (Pmx) 400 mcg In Empty Bag 1 bag @ 0.2 MCG/KG/HR 5.2 mls/hr IV .[id number] [facility] Rx#:[id number] Fat Emulsion 20% 250 ml 189 21 In Empty Bag 1 bag @ 21 mls/hr IV TuThSa@0900 [facility] Rx#:[id number] Mvi, Adult No.4 with Vit 1041 K 10 ml Trace (Conc-1Ml/ Dose) 1 ml Sodium Acetate 30 meq Magnesium Sulfate gm 1 gm Calcium Gluconate 0.5 gm Potassium Phosphate 9 mmol Potassium Acetate 10 meq In Amino Acids 5 %/ Dextrose 20 % 1,000 ml @ 90 mls/hr IV .BY DURATION [facility] Rx#:[id number] Sodium Acetate 30 meq 1030 Magnesium Sulfate gm 1 gm Calcium Gluconate 0.5 gm Potassium Phosphate 9 mmol Potassium Acetate 10 meq In Amino Acids 5 %/ Dextrose 20 % 1,000 ml @ 90 mls/hr IV .BY DURATION [facility] Rx#:[id number] Output: Chest Tube Drainage 200 70 0 Chest Tube Right 200 70 0 Drainage 200 60 0 Medial Abdomen 0 0 Right Abdomen 200 60 Right Upper Posterior 0 Chest Urine 1575 1895 1050 Other: Voiding Method Indwelling Catheter Indwelling Catheter Indwelling Catheter # Bowel Movements 1 ABP, PAP, CO, CI - Last Documented Arterial Blood Pressure 173/76 - Labs CBC & Chem 7: 01/17/24 05:48 01/17/24 05:17 Labs: Abnormal Lab Results - Last 24 Hours (Table) 01/16/24 01/16/24 01/17/24 Range/Units 16:55 23:40 05:17 WBC (3.8-10.6) k/uL RBC (4.30-5.90) m/uL Hgb (13.0-17.5) gm/dL Hct (39.0-53.0) % RDW (11.5-15.5) % Sodium 132 L (137-145) mmol/L Potassium 3.3 L (3.5-5.1) mmol/L BUN 34 H (9-20) mg/dL Glucose 180 H (74-99) mg/dL POC Glucose (mg/dL) 185 H 223 H (70-110) mg/dL Calcium 6.9 L (8.4-10.2) mg/dL 01/17/24 01/17/24 01/17/24 Range/Units 05:48 05:48 11:21 WBC 16.3 H (3.8-10.6) k/uL RBC 2.65 L (4.30-5.90) m/uL Hgb 8.1 L D (13.0-17.5) gm/dL Hct 24.2 L (39.0-53.0) % RDW 17.3 H (11.5-15.5) % Sodium (137-145) mmol/L Potassium (3.5-5.1) mmol/L BUN (9-20) mg/dL Glucose (74-99) mg/dL POC Glucose (mg/dL) 181 H 215 H (70-110) mg/dL Calcium (8.4-10.2) mg/dL
--- NOTE | 2024-01-17 14:48 | P.PN ---
Subjective Progress Note Date: 01/17/24 Principal diagnosis: Reason for follow-up is pneumonia and bacteremia Patient is 73-year-old with male initial presentation to the hospital on 11/11/2021 for after the patient did have aspiration while undergoing elective endoscopy, diagnosed with a non-Hodgkin of, subsequently did have explained laparotomy for perforated small bowel abdominal washout and feeding jejunostomy tube patient did require dialysis catheter placement for dialysis during this hospital stay and tracheostomy for respiratory failure, infectious was consulted for fever. On today's evaluation that is 01/17/2024, patient has been afebrile, patient remains to be intubated through the trach patient is hemodynamic stable not requiring any pressor support FiO2 is currently stable. Patient white count is 16.3, creatinine 0.66 Objective - Vital Signs Vital signs: Vital Signs Temp 97.8 F 01/17/24 08:00 Pulse 69 01/17/24 10:00 Resp 23 01/17/24 10:00 BP 131/89 01/17/24 10:00 Pulse Ox 98 01/17/24 10:00 FiO2 30 01/17/24 08:00 Intake & Output 01/16/24 01/17/24 01/17/24 18:59 06:59 18:59 Intake Total 2749.493 3240.887 690 Output Total 1974 2024 450 Balance 603.860 5076.887 240 Weight 100.2 kg 107.6 kg Intake: IV 1140 1780 590 0.9 Normal Saline @ KVO 50 50 20 Ceftolozane/Tazobactam 3 100 gm In Sodium Chloride 0.9 % 100 ml @ 100 mls/hr IV Q8HR [facility] Rx#:[id number] Ciprofloxacin/Dextrose 400 Pmx 400 mg In Dextrose/ Water 1 200ml.bag @ 200 mls/hr IVPB Q8H [facility] Rx#: [id number] Fat Emulsion 20% 250 ml 250 In Empty Bag 1 bag @ 21 mls/hr IV TuThSa@0900 [facility] Rx#:[id number] Fluconazole in NaCl,Iso- 100 Osm 200 mg In Saline 1 100ml.bag @ 100 mls/hr IVPB DAILY [facility] Rx#: [id number] Magnesium Sulfate-D5w Pmx 100 1 gm In Dextrose/Water 1 100ml.bag @ 100 mls/hr IVPB ONCE ONE Rx#: [id number] Potassium Chloride 10 meq 100 In Water For Injection 1 100ml.bag @ 100 mls/hr IVPB Q1H [facility] Rx#: [id number] TPN 990 1080 270 Intake, IV Titration 7963.980 8582.887 100 Amount Dexmedetomidine/0.9% NaCl 390.493 398.887 100 (Pmx) 400 mcg In Empty Bag 1 bag @ 0.2 MCG/KG/HR 5.2 mls/hr IV .[id number] [facility] Rx#:[id number] Fat Emulsion 20% 250 ml 189 21 In Empty Bag 1 bag @ 21 mls/hr IV TuThSa@0900 [facility] Rx#:[id number] Mvi, Adult No.4 with Vit 1041 K 10 ml Trace (Conc-1Ml/ Dose) 1 ml Sodium Acetate 30 meq Magnesium Sulfate gm 1 gm Calcium Gluconate 0.5 gm Potassium Phosphate 9 mmol Potassium Acetate 10 meq In Amino Acids 5 %/ Dextrose 20 % 1,000 ml @ 90 mls/hr IV .BY DURATION [facility] Rx#:[id number] Sodium Acetate 30 meq 1030 Magnesium Sulfate gm 1 gm Calcium Gluconate 0.5 gm Potassium Phosphate 9 mmol Potassium Acetate 10 meq In Amino Acids 5 %/ Dextrose 20 % 1,000 ml @ 90 mls/hr IV .BY DURATION [facility] Rx#:[id number] Output: Chest Tube Drainage 200 70 0 Chest Tube Right 200 70 0 Drainage 200 60 0 Medial Abdomen 0 0 Right Abdomen 200 60 Right Upper Posterior 0 Chest Urine 1575 1895 450 Other: Voiding Method Indwelling Catheter Indwelling Catheter Indwelling Catheter # Bowel Movements 1 ABP, PAP, CO, CI - Last Documented Arterial Blood Pressure 173/76 - Exam Elderly male lying in bed intubated through the trach in no distress No tachypnea or accessory muscle respiration Unlabored breathing - Labs CBC & Chem 7: 01/17/24 05:48 01/17/24 05:17 Labs: Abnormal Lab Results - Last 24 Hours (Table) 01/16/24 01/16/24 01/16/24 Range/Units 11:21 16:55 23:40 WBC (3.8-10.6) k/uL RBC (4.30-5.90) m/uL Hgb (13.0-17.5) gm/dL Hct (39.0-53.0) % RDW (11.5-15.5) % Sodium (137-145) mmol/L Potassium (3.5-5.1) mmol/L BUN (9-20) mg/dL Glucose (74-99) mg/dL POC Glucose (mg/dL) 191 H 185 H 223 H (70-110) mg/dL Calcium (8.4-10.2) mg/dL 01/17/24 01/17/24 01/17/24 Range/Units 05:17 05:48 05:48 WBC 16.3 H (3.8-10.6) k/uL RBC 2.65 L (4.30-5.90) m/uL Hgb 8.1 L D (13.0-17.5) gm/dL Hct 24.2 L (39.0-53.0) % RDW 17.3 H (11.5-15.5) % Sodium 132 L (137-145) mmol/L Potassium 3.3 L (3.5-5.1) mmol/L BUN 34 H (9-20) mg/dL Glucose 180 H (74-99) mg/dL POC Glucose (mg/dL) 181 H (70-110) mg/dL Calcium 6.9 L (8.4-10.2) mg/dL Assessment and Plan (1) Sepsis Current Visit: Yes Status: Acute Code(s): A41.9 - SEPSIS, UNSPECIFIED ORGANISM SNOMED Code(s): 66137584 (2) Pneumonia Current Visit: Yes Status: Acute Code(s): J18.9 - PNEUMONIA, UNSPECIFIED ORGANISM SNOMED Code(s): 620216575 (3) Bacteremia Current Visit: Yes Status: Acute Code(s): R78.81 - BACTEREMIA SNOMED Code(s): 5078814 Plan: 1patient with complicated pneumonia and lung abscess on the CT status post drainage catheter placement by interventional radiology subsequently did have purulent pleural fluid which has been cultured did have a chest tube and is growing Pseudomonas with slightly different sensitivity from the sputum Pseudomonas aeruginosa. 2-patient also have evidence of retro vesicular abscess on the CT abdominal pelvis, this has been discussed with the surgical team on the case in person however mention patient would not be able to tolerate any further surgery. 3patient pleural fluid cultures are growing Pseudomonas aeruginosa that is sensitive to Zerbaxa as well as tobramycin and Cipro and also growing Alejandra albicans 4patient family has decided against hospice care at this point we will restart his tobramycin watch his kidney function closely continue Cipro and Diflucan prognosis remains to be guarded Dictation was produced using [employer] software. please excuse any grammatical, word or spelling errors. Time with Patient: Less than 30
--- NOTE | 2024-01-17 15:48 | P.PN ---
Subjective Progress Note Date: 01/17/24 Interval History: This is a 73-year-old patient, follows with Dr. Patricia Deal. Patient was seen this morning in the ICU. Patient's and daughter at the bedside. History obtained predominantly by the . Patient been having trouble with his stomach symptoms for close to 8 months. Patient underwent EGD by Dr. Sahara Cheng yesterday. Patient was found to have ulcerated around the antrum and obstruction to the pylorus. A lot of retained food was found. Patient aspirated. Had to be intubated and brought to the ICU. On a Levophed drip. FiO2 50 and a PEEP of 6. Patient had been losing weight lost about 25 pounds. Previously has a history of mitral valve prolapse. November 13: ICU. Patient remains on Precedex drip and propofol drip. Did not do well attempted extubation yesterday. Patient been off Levophed. NG tube to suction. Spoke to patient's and son at the bedside. Biopsy results awaited. Hemoglobin dropped to 6.9 this morning. Get a unit of blood. November 14: ICU. Up in a chair. Extubated yesterday. NG tube to suction. at the bedside. 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 Oncology was consulted. They have ordered a port. Results discussed with Dr. Sahara Cheng. General surgery was consu lted for J-tube placement. Discussed with at the bedside. Patient getting IV fluids, IV Zosyn,. Patient has been on IV amiodarone for A-fib-back in sinus rhythm. Multiple PACs. Did receive unit of blood yesterday. Also IV ferric gluconate. November 15: ICU. Patient earlier today underwent jejunostomy tube placement and a port placement. Patient awake. Answering questions. NG tube to suction present. Updated patient's . Patient remains on IV amiodarone and IV Zosyn. November 16: ICU. Up in the chair. NG tube present but not to suction. Trickle feeding through the jejunostomy tube should be started today. Dietitian has been on board. IV Zosyn to continue. Patient's and his sister at the bedside. Discussed. Also spoke with Dr. Serna. Given patient has no other predisposing cardiac factors for the A-fib except acute illness. His LV function is normal. Left atrium is normal. He has already been loaded with IV amiodarone. Will switch him to oral Lopressor 12.5 twice daily. Hence will DC amiodarone. Patient yesterday had wheezing was put on bronchodilators steroids per pulmonary. November 17: Propped up in bed. NG tube was discontinued. Sinus rhythm. Remains NPO. Getting G-tube feeding at 40 cc an hour. Dietitian following. Get arrangements done for DC home tomorrow including tube feeding. Increase activity discussed with patient and elder daughter at the bedside. Still requiring oxygen. Incentive spirometry. November 18: Patient up in recliner. Earlier today spoke to social service coordinator David. Informed patient is rather weak and will be going to the [facility]. Looking at authorization. Denae came to the room and spoke to patient his and his daughter. They are very keen to take the patient home as 3 daughters all nurses and they will take care of him at home. Patient earlier today to abdominal cramping and some loose stools.'s tube feeding was held. Told the nurse to start back at the rate of 40 cc an hour. He was before the getting it at 55 cc an hour. Incentive spirometry was again emphasized. Patient remains on 4 L of oxygen. November 19: I saw the patient this morning. Hence I am in the evening. Morning was sitting with his sons. Has some edema. Lungs had crackles I gave him 40 mg of Lasix. He did make good urine. Tube feeding was held from the previous evening of because of abdominal cramping. Acute abdominal series showed nonspecific bowel gas pattern and SBO to be ruled out. Family and patien t was updated. Told him discharge will depend on day by day. Later this afternoon CT scanAnd abdomen pelvis done. Showed small bowel to be 3 point centimeter dilated. Some anasarca. Gastric findings. Gallstones. Later spoke to Dr. Irby from general surgery. They will further review and decide about further plan of action. Will give further dose of IV Lasix because of fluid overload from likely hypoalbuminemia and IV fluids previously received. Patient may take his pills by mouth. Total time spent today about 1 hour with over 40 minutes of discussion. Patient did state his breathing is better after Lasix this morning. November 20: Saw the patient this morning. was present. Patient received 2 more doses of Lasix. Diuresed well. Breathing much better. Lungs are soundi ng better. Discussed with Dr. Zepeda other surgeon. He is taking 3 cc out of the balloon and the gastrostomy tube. Started trickle feeding at 5 cc an hour. Will see how this does. Later in the day ran into the and the daughter again. Did update them on the same. Dilaudid was discontinued yesterday but morphine was ordered by surgery for patient having pain. Concerns about GI issues with that we will DC the morphine. As family does not want the same. November 21: Patient reclining bed. Tired. Several family members at the bedside. Including his and eldest daughter. Patient started on trickle feed yesterday at 5 cc an hour. This morning he has been on [address] ill having some loose stools. C. difficile was ordered. Patient on 2 L of nasal cannula. Has diuresed well. Will give an additional dose of Lasix today. If C. difficile is negative and the diarrhea is from the tube feedings we may have to use a fecal management system to keep him comfortable. Otherwise patient remains NPO. Dietitian is following the patient. Care was discussed length with patient the and daughter at the bedside. Questions answered. Liquid Tylenol has been added for abdominal pain. Avoid narcotics. Elevated white count likely from Solu-Medrol 11/23/2023--patient was feeling better today. Multiple family member at bedside. No issues overnight. Normal saline at 10 cc an hour, tube feeding at 20 cc an hour, remains on Zosyn, on 3 L oxygen. Afebrile. Heart rate 62, respiratory rate 16, blood pressure 114/67, saturating 91% on 3 L. WBCs 14.5, 9.7 hemoglobin. Platelet 242. BMP is unremarkable. Pulmonary and general surgery following. General surgery recommended to continue tube feeds at 20 cc/h. 11/24/2023--patient reported significant abdominal discomfort, also noted to have leak around G-tube. General surgery is following, evaluated the patient at bedside, adjusted tube feeds. Also reported having diarrhea, on 2 L oxygen, went up to 5 L. Blood pressure was low, 500 mL fluid bolus with close monitoring of respiratory status ordered. Currently on DuoNebs, Solu-Medrol, will continue Zosyn. Chest x-ray showed a left lower lobe infiltrate. Abdominal x-ray showed multiple air-fluid levels. CT abdomen showed multiple dilated small bowel loops, consistent with obstruction, pneumoperitoneum, cholelithiasis and ascites. WBCs 14.1, platelet 255, hemoglobin 8.9. NG tube in place. Family at bedside. patient transferred to SICU for close monitoring. 11/25/23--patient is currently in the ICU, required Levophed overnight due to low blood pressure, low urine output with creatinine trending up. Nephrology following. Supervisor Adult Education also following. Patient remains n.p.o., NG tube in place, following NG tube insertion patient had total of 2 L output, J-tube was draining approximately 200 cc over last 8 hours, continues to have abdominal pain and abdominal tenderness. Patient on IV fluids. Currently on 4 L oxygen. WBCs 8.2, hemoglobin 12.3, platelet 188. Chest x-ray earlier today showed right sided port and a stable left lung airspace disease, NG tube in place. Patient currently on Zosyn, on IV Dilaudid for pain control, on IV Solu-Medrol. General surgery planning for OR today, started on TPN. 11/26/23--patient was seen and examined today. Patient is currently sedated, intubated on mechanical ventilation. Family at bedside. Patient underwent ex lap, abdominal washout, small bowel resection with new feeding jejunostomy tube placement yesterday, small bowel was noted to be perforated with significant contamination of abdominal cavity. Patient is currently on vancomycin and Zosyn. Creatinine went up to 2.85, nephrology following, recommended to continue IV fluids, avoid nephrotoxin Preserved EF on echocardiogram.. Patient currently on Levophed, vasopressin in the ICU for close monitoring. Patient is afebrile, heart rate 122, blood pressure 129/76, currently on mechanical ventilation, sedated. November 26: ICU. Intubated. FiO2 60 and a PEEP of 5. Drips include IV amiodarone. Heart rate was up early did get fired microgram of IV digoxin and 2.5 mg of IV Lopressor. Did drop her blood pressure bit. Urine output was low. Received 80 mg of IV Lasix. Ahmet to 150 cc. Other drips include IV propofol, vasopressin, Levophed. TPN was started yesterday. Antibiotics include IV Zosyn and vancomycin. Patient has a J-tube to drainage to gravity. Spoke to patient's younger daughter and at the bedside. Prognosis guarded. Continue current treatment plan. Chest x-ray shows right lower lobe consolidation. Small pleural effusion. November 27: ICU. Intubated. FiO2 55 and a PEEP of 5. Antibiotics include IV vancomycin. Drips include Levophed at a small dose, IV vasopressin, propo fol, amiodarone. Patient converted to sinus rhythm this morning. Getting TPN and normal saline at 75 cc an hour. Urine output about 25 cc an hour. RAYA drain put out about 260 cc last 12 hours that is last mine shifter. NG tube with bilious output. And also GI J-tube output to gravity. Spoke to patient's and daughter at the bedside. They understand patient still not out of the kee. Platelets have dropped-therefore probably Zosyn stopped. November 28: ICU. Intubated. FiO2 55 and a PEEP of 5. Patient is in sinus rhythm. Seen this morning. Due for dialysis catheter this afternoon. Urine output about 15 to 20 cc an hour. Patient is on IV Lasix 80 mg every 12. Saline is KVO. Drips include IV propofol vasopressin. Patient having significant output through the RAYA drain and the jejunostomy tube to drainage. Creatinine had been getting worse. Patient's at the bedside. Understands patient's remains critically ill. Hemoglobin is down to 7. Given that patient's pain hypotensive, and on vasopressin we will give a unit of blood with dialysis. Getting TPN antibiotic changed to IV meropenem November 29: ICU. Intubated. FiO2 55 and a PEEP of 5. Remains in sinus rhythm. Getting TPN. Dialyzed yesterday and this morning. About 1000 cc removed. Urine output about 50 cc an hour. Patient is on IV propofol. Off vasopressin. Still having significant output through the RAYA drain and jejunostomy tube. Patient received a second unit of blood yesterday. Patient's and daughter at the bedside. I did discuss guarded prognosis. Did asked them to revisit CODE STATUS.. Getting IV meropenem. November 30: ICU. Intubated. Did get a sedation holiday t today. Back on propofol. Getting TPN. Still getting IV Lasix. Fair urine output. Jejunostomy tube in last 8 hours was about 30 cc output. RAYA drain in the 8 hours had about 180 cc output. Telemetry shows sinus rhythm. NG tube has low intermittent suction with negative output. On the vent with FiO2 40 and a PEEP of 5. No hemodialysis today. Discussed with the and eldest daughter at the bedside. IV meropenem-patient's sputum had grown Citrobacter freundii and Pseudomonas aeruginosa. December 01: ICU. Intubated. Jejunostomy tube to gravity. Only 10 cc output in last 24 hours. RAYA drain. About 190 cc last 6 hours. Nasogastric tube to low intermittent suction. Minimal output. Patient is on a small dose of propofol 5 mics. Telemetry shows sinus rhythm. Patient started on small dose of Cleviprex this morning. Blood pressure. Getting TPN. FiO2 35 and PEEP of 5. Discussed with the at the bedside. Hemodialysis today December 02: ICU. Patient remains intubated. FiO2 35 PEEP of 5. Patient is on IV propofol. IV Cleviprex was discontinued yesterday. Also remains on TPN. Telemetry shows sinus rhythm. NG tube is good no output. Still significant output through the RAYA drain. Jejunostomy tube has minimal output. Patient had hemodialysis today 2 L of fluid was removed. Oral half liters yesterday. Patient getting a sedation holiday. General Surgery started the patient on trickle feeding at 10 cc an hour. I did speak to patient's at the bedside. Prognosis remains guarded but there is some improvement. December 03: ICU. Intubated. FiO2 35 PEEP of 5. Drips include IV propofol and Precedex. Getting TPN. Telemetry shows sinus rhythm. Remains on IV Lasix 80 mg twice a day. IV meropenem. Because patient gets easily agitated when swift sitioning off propofol he has been switched over to Precedex. For hemodialysis today. December 04: ICU. Intubated. FiO2 35 and a PEEP of 5. Patient been taken off propofol is on Precedex. Telemetry sinus rhythm. J-tube with minimal output. RAYA drain with decreased output. NG tube to suction minimal output. Family wanted to hold off trickle feeding until cleared by oncology. Which he did to day. Trickle feeding will be started today. Spoke to patient's and one of the daughters at the bedside. Dr. Russ is spoken to the earlier this point they want to do further tracheostomy tube. December 05: ICU. Intubated. FiO2 35 PEEP of 5. Patient remains on Precedex and PPN. Patient's dialysis catheter was not functioning is getting another [address] Bobby this afternoon. Remains on IV meropenem. Has a RAYA drain in the jejunostomy tube to gravity. NG tube to low intermittent suction. No family at the bedside. December 06: ICU. Intubated. FiO2 35 PEEP of 5. RAYA drain putting out about approximately 120 cc per shift. Patient on IV Precedex. FiO2 35 PEEP of 5. Telemetry-sinus rhythm. Patient occasionally been put on small dose of Levophed specially for hemodialysis getting it today. Also started on midodrine for low blood pressure. Tolerating tube feeding at 10 cc an hour. Also had a bowel movement. Mentation has not improved. Even with sedation holiday. Neurology consulted. CT brain shows no acute process. December 07: ICU. Intubated. FiO2 35 PEEP of 5. Telemetry-sinus rhythm. NG tube to suction low intermittent minimal output. Getting TPN. Tube feeding at 20 cc an hour. RAYA drain averaging over 100 cc per shift. Remains on Precedex. EEG was done today. Discussed with at the bedside. Family is currently not inclined for tracheostomy tube today. Day 13 of being intubated December 08: ICU. Intubated. FiO2 35 PEEP of 5. Patient is put on back on propofol per chemical inspector Dr. JIMENEZ. EEG did show some potential for spikes was put on Keppra by neurology. Telemetry shows sinus rhythm. NG tube to suction with no output. Tube feeding was put on hold because of questionable discharge on the site. Being restarted today. RAYA drain is 150 cc last 12-hour shift. Patient does open eyes. Family has decided to proceed with tracheostomy and surgery has been consulted for the same. Spoke to the at the bedside. For hemodialysis today. December 09: ICU. Intubated FiO2 35 PEEP of 5. Patient seen this morning. Pen ding tracheostomy placement this afternoon. Remains NPO. G-tube feeding was held overnight. RAYA drain putting out about 100 cc per shift. Received a unit of blood for hemoglobin of 6.6. On 25 mics of propofol. Getting TPN and meropenem. Spoke to the at the bedside. Patient became hypotensive with dialysis yesterday. Levophed had to be given. Only 800 cc were removed yesterday. No hemodialysis today. December 10: ICU . FiO2 35, PEEP 5. Tracheostomy was done yesterday by Dr. Ewing. G-tube feeding was started today at 10 cc an hour. Dietitian following. RAYA drain 12-hour shift overnight put out about 30 cc. Patient hemodialysis today about 1 L removed. Patient has a sacral stage II decub with a dressing. On propofol 20 mics. Spoke to at the bedside. TPN. Meropenem was discontinued yesterday. December 11: ICU. FiO2 35 PEEP of 5. Tracheostomy. NG tube was discontinued. No hemodialysis today. Telemetry shows sinus rhythm. J-tube feeding at 40 cc an hour. TPN was discontinued. Patient has been off propofol also. PICC line in place. Patient had a EEG done today. Spoke to patient's elder daughter at the bedside. May open eyes occasionally. Not really following commands December 12: 73-year-old white male with history of chronic abdominal pain for the last 8 months has been treated with Protonix 40 mg daily for the last 3 months with no improvement. Patient had a 22 pound weight loss in the last [address] of the abdomen and pelvis 3 weeks ago showed thickening of the antral wall with pathological adenopathy posterior to the stomach suspicious of neoplasm. Today the patient underwent elective upper endoscopy to evaluate further, patient received IV sedation by anesthesia endoscope was inserted into the mouth, esophagus was intubated without any difficulty there was evidence of large amount of liquid and solid food noted in the stomach suggestive of gastric outlet obstruction. Scope could not be advanced through the pylorus, however in the prepyloric area there was a large superficial ulceration identified with multiple biopsies were done from this area. The body cardia and fundus could not adequately visualize because of large amount of retained food in the stomach. Scope was withdrawn back to the stomach and upon careful examination the mucosa of the antrum body and cardia as well as the fundus appeared normal. Procedure was being performed and biopsies were done patient threw up and subsequently became hypoxic there was clearly evidence of witnessed aspiration anesthesia intubated the patient, procedure was terminated, and the patient was transferred to the ICU, this consult was initiated. Patient is now on assist- control rate of 20 tidal volume 500 FiO2 70% PEEP of 10 ABG is pending, earlier ABG showed profound hypoxia patient is on propofol at 50 mcg/kg/min, next ABG is pending. Chest x-ray showed chronic changes without evidence of acute pulmonary disease. 12/14/2023 Patient remains in the ICU, generally weak Patient s/p tracheostomy G-tube in place Patient still has fever and mild tachycardia but tachycardia is improving, leukocytosis improving as well. Hemoglobin 8.1. Creatinine 3.0 and nephrology team on the case. He has mild transaminitis. He was getting Zosyn which is held now, nowCalcitonin is pending 12/14 Patient shon in the ICU, he is still encephalopathic and does not follow command. Neurology service following closely. He is status post tracheostomy. Also J-tube His abdomen looks soft and on exam he has mild coarse secretions. Has a Abarca catheter with clear urine His pro- Calcitonin is still high but trending down 3.0 down to 1.9 No fever this morning WBC slightly less at 16.3 Patient currently off antibiotic He is getting steroids IV Solu-Medrol which might contribute to his leukocytosis. Also he is on IV Keppra by neurologist 12/14 Patient remains confused in the ICU calm, he had a good night per family member and staff. Tracheostomy in place Patient has occasional coughing spells, patient also developed some partial wound dehiscence in his abdomen, surgery team are aware and are going to evaluate the patient Patient also has positive blood culture from 12/13: Gram-positive cocci in clusters. Patient received one-time dose of IV vancomycin. Patient also had fever 2 days ago, leukocytosis and total elevated pro- Calcitonin. Therefore we are going to consult infectious disease team. As his antibiotic Zosyn was stopped few days ago. Currently patient KVO He has good urine output December 16: ICU. Trach. Congested. Requiring suctioning. No hemodialysis today. Getting G-tube feeding at 50 cc an hour. FiO2 30 and a PEEP of 5. On IV Precedex. Eyes open. Does follow commands. Weakness in the limbs. Spoke to at the bedside. Sputum positive for Klebsiella oxytoca and Pseudomonas aeruginosa. December 17: ICU. On trach. Currently cough with increased secretions requiring suctioning. Adding scopolamine patch. Very much clear secretion. CT scan is showing right upper lobe lung abscess. G-tube feeding at 50 cc an hour. Hemodialysis today. RAYA drain putting out about 140 cc a shift. Serous. Has been midline incision wound dehiscence. Wound VAC was placed on it. Stage II ulcer. Patient is on Precedex drip 0.15 mics. Urine output is good about 6200 cc an hour. Spoke to the at the bedside. Patient currently not stable for transfer to LTAC. No limb movements. PT OT on the case. otherwise awake does follow simple commands by face December 18: ICU. Patient seen this afternoon. Because of pain getting IV Dilaudid. No nasal cannula on room air. Does move about his head. Telemetry s hows sinus rhythm. FiO2 30 and a PEEP of 5. Patient started on scopolamine patch yesterday has decreased secretions today. Good urine output. Tube feeding at 60 cc an hour. Wound VAC on incisional would be high since in place. RAYA drain continues to make output. No hemodialysis today December 19: ICU. Patient was seen earlier today. FiO2 30 and a PEEP of 5. Sinus rhythm. Awake. Does follow with eyes. Tube feeding got obstructed tube feedings held for now. Increasing oozing from the incision drainage site. at the bedside. Wound VAC remains in place. Good urine output. Dialysis held today. December 20: ICU. Per nephrology no dialysis today. 1 L fluid bolus given. J-tube was replaced over the wire by Dr. Ewing from surgery. On Precedex 0.6 mcg. FiO2 30 and a PEEP of 5 on the vent. RAYA drain putting out of around 100 cc per shift. at the bedside. Drainage through the abdominal incision wound. CT scan abdomen showed tube placement in the small bowel. Stable large right lower quadrant mass with a fluid level. December 21: ICU. No dialysis today. Patient started on trickle feeding through the J-tube yesterday. He started leaking around the J-tube site. Tube feeding was held. Dressings were placed. Wound VAC remains on the incision. Still having output through the RAYA drain. Patient remains on Precedex 0.4 mcg. FiO2 30 and a PEEP of 5. Sinus rhythm. at the bedside. December 22: ICU. Patient was seen this morning today by me. No dialysis today. Patient's and daughter at the bedside. FiO2 30 and a PEEP of 5. Sinus rhythm. Still having significant secretions through the tracheostomy tube. On Precedex 0.4 mcg. Getting D5W IV fluids. Tube feeding remains to be on hold since yesterday. Still output of RAYA drain. Awaiting input from surgery. Discussed with the and daughter. December 23: ICU. Saw the patient this afternoon. Because of good output of urine dialysis has been discontinued. Telemetry shows sinus rhythm. FiO2 30 and a PEEP of 5. RAYA output has been around 8200 cc an hour. Good urine output. Patient does have very slight movement of the limbs. Wound VAC is putting out about 20 cc per shift. Yesterday when trickle feeding was started patient's J- tube drainage also started leaking around the insertion site. Tube feeding was held. Patient remains on IV Zosyn and Precedex at 0.3 mcg. I had a very lengthy discussion with patient's daughter and at the bedside overall guarded prognosis. Later surgery spoke to the family, and then the nurse called me that family was wanting transferred to [facility]. I spoke to Dr. Irby. They felt they could not offer anything more at this point. 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 Gave them the reason for transfer. Later in the ICU nurse informed me through [employer] that [facility] had declined the transfer. Total time spent today about 50 minutes with over 30 minutes of discussion. December 24: ICU. Patient is doing not too well. Sinus rhythm. Drips include norepinephrine and IV propofol. Surgery did put 2 stitches around the J-tube insertion site. Started on TPN today. FiO2 30 PEEP of 5. Patient became hypothermic put on a Manjit hugger. Also hypoglycemic. Decreased urine output. IV fluids increased. Patient's son was at the bedside. I did speak to patient's eldest daughter outside in the waiting room. Did tell the patient doing very poorly. I did try to call the on the phone number she has gone home. Started an IV antifungal today. December 26, 2023 73-year-old white male with history of chronic abdominal pain for the last 8 months has been treated with Protonix 40 mg daily for the last 3 months with no improvement. Patient had a 22 pound weight loss in the last [address] of the abdomen and pelvis 3 weeks ago showed thickening of the antral wall with patho logical adenopathy posterior to the stomach suspicious of neoplasm. Today the patient underwent elective upper endoscopy to evaluate further, patient received IV sedation by anesthesia endoscope was inserted into the mouth, esophagus was intubated without any difficulty there was evidence of large amount of liquid and solid food noted in the stomach suggestive of gastric outlet obstruction. Scope could not be advanced through the pylorus, however in the prepyloric area there was a large superficial ulceration identified with multiple biopsies were done from this area. The body cardia and fundus could not adequately visualize because of large amount of retained food in the stomach. Scope was withdrawn back to the stomach and upon careful examination the mucosa of the antrum body and cardia as well as the fundus appeared normal. Procedure was being performed and biopsies were done patient threw up and subsequently became hypoxic there was clearly evidence of witnessed aspiration anesthesia intubated the patient, procedure was terminated, and the patient was transferred to the ICU, this consult was initiated. Patient is now on assist-control rate of 20 tidal volume 500 FiO2 70% PEEP of 10 ABG is pending, earlier ABG showed profound hypoxia patient is on propofol at 50 mcg/kg/min, next ABG is pending. Chest x-ray showed chronic changes without evidence of acute pulmonary disease. 12/27/2023 Patient is seen and evaluated with family at bedside; remains in the ICU intubated and mechanically ventilated. - ABG showed a pO2 of 99 pCO2 31 pH of 7.44. -- Remains on Eraxis daptomycin and Zosyn patient is intermittently requiring Dilaudid, Ativan does not seem to help his agitation and restlessness. -- Continues to have leakage around the jejunostomy tube, and patient is undergoing the J-tube exchange today. Family is at bedside, seems to be quite anxious about his overall condition, and I explained to the that we are doing the best we can considering his critical illness situation and critical illness polyneuropathy. Patient is profoundly weak, and weaning the patient from mechanical ventilation is almost impossible. At least not at this point yet WBC count is 10.9 hemoglobin is 8.1 basic metabolic profile is normal BUN is 46 creatinine 1.90 patient has been off hemodialysis since the . Chest x- ray continues to show stable findings with right upper lobe opacity and right lower lobe opacity and possibly a small right-sided pleural effusion ----Continue ventilatory support, now on IMV mode rate of 16 with pressure suppo rt of 14 Continue Precedex and use Dilaudid 0.5 mg every 2-3 hours as needed. Nutritional support patient is now on TPN, Possible J-tube changed today for J- tube malfunction Continue antibiotics including daptomycin and Zosyn, Eraxis was added by infectious disease 12/28/2023 the patient is seen and evaluated in room at bedside; continues to be afebrile, the patient is on the ventilator through the trach FiO2 is currently stable at 30% no significant pleural effusion clinically patient on requiring any pressor support still having drainage around his jejunostomy tube patient dialysis catheter has been discontinued. Patient white count normalized to 7.6, creatinine is 1.51 patient with pneumonia with a sputum showing Citrobacter and Pseudomonas aeruginosa, the patient sputum repeat is still growing Citrobacter and Pseudomonas sensitive to the Pseudomonas is pending continue with Zosyn -patient did have a positive blood culture with staph epi that was oxacillin resistant as the patient did have a PICC line and the dialysis catheter he is on daptomycin repeat blood culture currently growing oxacillin sensitive staph epi, the patient dialysis catheter has been discontinued Has been sent for the culture -patient also have significant excoriation around his jejunostomy tube site which is still leaking Eraxis was added which will be continued as the patient fever pattern has improved and the patient white count has normalized once again discussed with the nursing staff to apply Triad cream which was discussed yesterday but not applied and monitor clinical course closely 12/29/2023 Patient is seen and evaluated with family members at bedside; remains intubated and mechanically ventilated -- ABG showed a pO2 of 105 pCO2 31 pH of 7.45. Remains on Precedex; multiple antibiotics and antifungal including Eraxis daptomycin and Zosyn. -- chest x-ray is showing improvement in his right upper lobe airspace disease/pulmonary abscess. Right lower lobe seems about the same with chronic opacity and possibly some small right-sided pleural effusion. --Family is at bedside, patient is arousable but does not follow any instructio ns. Gets extremely restless and agitated easily hence patient is receiving Dilaudid which seems to be working much better for this patient than benzodiazepines --possibly transfer the patient to a [facility] specialty. 12/30/2023 Evaluated in follow-up in the intensive care unit. He remains on the mechanical ventilator. Status post tracheostomy. There has been a decrease in the amount of leakage around the J-tube site he continues on a gravity flow. TPN is infusing tube feedings remain on hold at this time. No bowel movement reported for the last 5 days. X-ray today reveals extensive pleural parenchymal opacities throughout the right with at least a moderate pleural effusion. Mild patchy densities left mid and lower lung are also similar. Blood work reveals a white blood cell count 11.5, hemoglobin 8.1, platelet count of 78, sodium 142, potassium 4.2, BUN of 42, creatinine of 1.22, Phos of 2.3, magnesium 1.9. Patient continues on IV anidulafungin IV Zerbaxa IV daptomycin. Patient is currently sedated with propofol and also Precedex which is currently on hold at this time. December 31, 2023: ICU. Patient continues to do poorly. On propofol 35 mics. Also getting IV Dilaudid and IV Ativan.. Telemetry shows sinus rhythm. J-tube feeding has been discontinued. Significant output through the Abarca bag and around the G-tube site. Patient also putting out through the RAYA drain on the right side. Getting TPN and lipids. Patient is antimicrobial include iv aniedulefungin, IV ceftolozane/tazobactam, IV daptomycin Advance care planning [October 31, 2023] I met with patient's at the bedside. Went through in detail with patient is overall very poor clinical sta tus. Chances of any meaningful recovery next to minimal. I also did mention that patient in my opinion was not stable to go to chronic ventilator setting. I suggested comfort care/hospice. I did not feel and why all honesty that patient is benefiting any further from the treatment we are giving him in fact causing probably more suffering. I also spoke to patient's daughter outside in the waiting room. Total time spent about 50 minutes with over 30 minutes of discussion. Later I called Dr. Luther JIMENEZ the chemical inspector after he received a text that family was expressing that some physician expressed he was doing better and giving hope. I spoke to nurse Aminta in the evening and she and Dr. JIMENEZ did go and talk to patient's family at the bedside later. January 01, 2024: ICU. FiO2 30 and a PEEP of 5. Continues to have increased drainage at the G-tube site. Wound VAC in place over the incision. RAYA drain continues to put out excretions. Good urine output. Drips include IV propofol at 20 mics, also getting IV Ativan and Dilaudid. Patient also keeping getting TPN lipids. Spoke to the patient's at the bedside. No further questions. I did speak to Dr. Irby from general surgery. Hence it is both our impression again that changing the tube will not make any difference to the bigger picture. And probably futile. Dr. Irby will be speaking to the family today. David from social service coordinator did ask about of family meeting. I did reiterate that I spoken at length to the a few times and also the daughter. Dr. Jimenez also spoke to the and Dr. Irby will be speaking with the today. Prognosis remains to be very poor. I did tell the in my opinion probably the patient is not r a candidate for long-term facility. Will chemical inspector Dr. Jimenez determine if the patient is a candidate for long-term chronic ventilator facility. January 02, 2024: ICU. FiO2 30 PEEP of 5. Telemetry sinus rhythm. Drips include propofol at 20 mics. Patient getting TPN lipids. Receiving 1 unit of packed red blood cell. Patient was having a breakdown around the tracheostomy stoma site. With a cuff leak. G-tube site is continues to have increasing output. Wound VAC in place. RAYA drains also having increasing output. Patient sister and daughter from [place] from out of town. Earlier they spoke at length with Dr. alford from general surgery. Prognosis remains poor. January 03, 2024: ICU. FiO2 30 PEEP of 5. On propofol. 50 mics. Getting TPN lipids. Sinus rhythm. Wound VAC in place. Drainage around the j-tube site. RAYA drain continues to drain. Patient somewhat sedated. at the bedside. Later social service coordinator David inform me that the surgical team Dr. Irby has suggested possible you have [facility], to which family is trying to obtain tra nsferred to. Per Dr. Jimenez note patient has been decline by long-term care twice. Prognosis remains poor. at the bedside. Had no questions. Brother Nathan is present. January 04, 2024: ICU. FiO2 30 PEEP of 5. Propofol was held this morning. Getting TPN lipids. Sinus rhythm. Wound VAC remains in place. Continues to have drainage around the J-tube. RAYA drain continues to have output. at the bedside. She had no questions. Antibiotics in place. January 05, 2024: ICU. FiO2 30 PEEP of 5. Audibly sounding congested. Getting TPN lipids. Sinus rhythm. Wound VAC in place. Drainage around J-tube site. RAYA output continues. No family at bedside. Getting antibiotics. Lethargic January 06, 2024: ICU. FiO2 30 PEEP of 5. Patient is been off propofol since yesterday. Does move his head about. Try to open his eyes sometimes. Sinus rhythm. Blood pressure is running high yesterday. Started on Cleviprex. Hydralazine is being added. Continue to get TPN lipids. J-tube site remains excoriated. Wound VAC in place. RAYA output about 40 to 50 cc is a 12-hour shift. Patient elder daughter at the bedside. Eraxis was discontinued on January 02. Daptomycin is being discontinued by ID. Continue ceftolo'szone. CT abdomen pelvis done today: 3.1 cm organized fluid collection within the rectovesicular space concerning for abscess. No change in right upper lung 4.9 cm fluid collection with a fluid level. For possible pulmonary abscess. Moderate size right lung base multiloculated hydropneumothorax possibly abscess. Additional areas of air bronchograms. January 07, 2024: ICU. FiO2 30 PEEP of 5. Patient was taken down for pigtail drainage of the right lung abscess. About 200 cc of pus was obtained. Nurse informed me when they told him about for the procedure a lot of pus gushed out from the tracheostomy site. Dr. Love at the bedside did a bronchoscopy. Some pus was aspirated. No obvious fistula was noted. Patient is being back on Cleviprex drip. TPN lipids. January 08, 2024: ICU. Patient was having severe bouts of coughing. Unable to maintain ventilation. Patient was put on Nimbex drip and propofol drip. TPN lipids continue. Has a right chest wall pigtail catheter 90 cc output in 12- hour shift. Drainage from around the J-tube site. RAYA drain continues Ahmet to have an output. Abdominal wound is high since with the wound VAC in place. Patient sedated. January 09, 2024: ICU. Patient is off propofol and Cleviprex. Does open eyes. RAYA drain. About 40 cc last 24 hours. J-tube site continues to have increased output. Requiring dressing change every so often. Wound VAC in place. Patient getting Dilaudid and Ativan. Telemetry shows sinus rhythm. 40 cc out of the pigtail drainage. Patient started on ciprofloxacin and tobramycin. Remains on TPN and lipids. Patient's eldest daughter and at the bedside. No new questions. January 10, 2024: ICU. Overnight patient had become asynchronous. Had to be put on Precedex drip. Hemoglobin dropped down to 6.6. Monitor blood ordered. RAYA output about 100 cc last 24 hours. Wound VAC remains in place. TPN lipid continues. Patient also has a leak in the right pigtail catheter. Sinus rhythm. Continues to have increased secretion at the G-tube site. Ventilator FiO2 30 and a PEEP of 5. at the bedside. Had no further questions. January 11, 2024: ICU. Patient remains on IV Precedex. TPN.'s RAYA output over 30 cc last 24 hours. Wound VAC remains in place. Sinus rhythm. FiO2 30 PEEP of 5. Pigtail with very little output. Spoke to Dr. Love who only spoke to the patient's at length. Gnosis poor. When I walked in patient's 2 daughters and the present. is very tearful crying hugging the patient. The daughter had no further questions January 12, 2024 Ahmet: ICU. Continues on IV Precedex. Getting TPN lipids. Wound VAC in place. Sensitive. FiO2 30 and a PEEP of 5. Patient's at the bedside. Had no questions. January 13, 2024: ICU. FiO2 30 PEEP of 5. Remains on Precedex 0.8 mg. Eyes open. Sometimes does track with head. Not moving limbs. Some decrease in output from the G-tube site. Wound VAC putting out about 100 cc every 12 hours. RAYA drain about 100 cc every [address] Russ met with the family earlier today. Patient's been made DNR. Telemetry sinus rhythm. Patient's and daughter at bedside. They have no questions January 14, 2024: ICU. FiO2 30. PEEP of 5. Patient is has eyes open and tracking. Urine output about 100 cc an hour. NG site output looks like gastric contents. RAYA site about 50 cc in the last 12 hours. Telemetry sinus rhythm. and daughter have asked for hospice consultation for informational visit. They want to use [facility]. I sat with them and the nurse and a full expression of the hospice involved involved. Several questions answered. Daughter does express that she would like to take the patient home. The other sibling will be coming on from [place] on Saturday. They want to hold on at least until then. January 15, 2024: ICU. FiO2 30 and a PEEP of 5. Getting CPAP today. Asynchronous better. J-tube site continues to have increase secretions. Sinus rhythm. Awake. Does move his head possibly to command. Remains on Precedex. Getting Dilaudid. Fair urine output. Has a air leak in the pigtail. Minimal output through the chest tube. RAYA drain continues to have an output. at the bedside. January 16, 2024: ICU. On the ventilator FiO2 30 and a PEEP of 5. Pressure support mode. Wound VAC remains in place. J-tube site continues to have output. RAYA drain putting out output. Remains on pressors Precedex and getting Dilaudid. Antibiotics per ID. Patient being planned to go home tomorrow with home hospice. at the bedside. Had no further questions. Being followed by social service coordinator David and home hospice team from [facility] -Hospice arranging for transport with portable ventilator, to home with family -Antibiotics as discussed with ID will be discontinued -Wound VAC to be removed prior to discharge per surgery -RAYA drain to remain in place with dressing changes at the J-tube site. Dressing changes at the incision site per surgery. -TPN lipids will be discontinued prior to discharge -Patient to be taken off Precedex by r chemical inspector January 17, 2024: ICU: Patient was seen and examined today, family at bedside, initially plan was patient to go home with hospice today however patient and family/ change their mind, and wanted to continue current treatment. Patient is currently on pressure control mode of mechanical ventilation unchanged as compared to yesterday, remains on Precedex 1.4 mcg/kg/h, remains on TPN, unable to use his J-tube. Patient intermittently requiring Dilaudid. Currently on antibiotics Cipro and fluconazole, infectious disease added tobramycin today. ICU following. Infectious disease following. Nephrology following. General surgery on board and following. manager athletics working to transfer patient to [facility]. Dr. Oseguera talk to the physician from [facility] as well. INVESTIGATIONS, reviewed in the clinical context: January 15: White count 12.3 hemoglobin 6.5 platelets 291 January 14: White count 17 hemoglobin 7.9 platelets 310 potassium 3.[address] abdomen pelvis [January 05]: 3.1 cm organized fluid collection within the rectovesicular space concerning for abscess. No change in right upper lung 4.9 cm fluid collection with a fluid level. For possible pulmonary abscess. Moderate size right lung base multiloculated hydropneumothorax possibly abscess. Additional areas of air bronchograms. January 05: White count 10.6 hemoglobin 7.6 platelets 111 sodium 137 potassium 3.5 BUN 44 creatinine 0.95 January 03: White count 13.4 hemoglobin 8.1 platelets 95 potassium 5.2 creati nine 1.1 albumin 1.8 Sputum culture [December 24] Citrobacter freundii, Pseudomonas aeruginosa Blood culture [December 24] Staphylococcus pettenkoferi December 24: White count 1.5 hemoglobin 8.2 platelets 106 potassium 3.8 BUN [address] chest abdomen without contrast [December 16] right upper lung cavitary lesion with air-fluid level in the posterior aspect and a larger cavitary lesion pos sibly within the lung parenchyma itself. Extending down towards the diaphragm additional airspace opacities in the left lung base. December 09: White count 26.1 hemoglobin 8.6 platelets 154 potassium 4.1 BUN 86 creatinine 3.31. Hemoglobin this morning was 6.6 prior to transfusion EEG-evidence of generalized cerebral dysfunction and sporadic intermittent higher amplitude sharply contoured waves mainly bifrontal. Showing cortical irritability. 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 Serosal fibrous adhesions. Viable margins. Sputum culture: [November 25]: Citrobacter freundii. Pseudomonas aeruginosa November 20: White count 14.4 hemoglobin 8.8 platelets 229 potassium 4.1 BUN [address] scan abdomen [November 19] possible small bowel obstruction Stool: C. difficile negative November 15: WBC 13 hemoglobin 7.7 platelets 248 potassium 4.3 creatinine 0.87 2D echo: EF 55 to 60%. Kidneys bladder: Unremarkable November 13: White count 12 hemoglobin 6.9 platelets 276 potassium 4.4 creatinine 1.21 magnesium 1.8 iron 6 TIBC 365% saturation 1.64 transferrin 261 ferritin 34.6 B12 569 folate 4.4 November 11: Creatinine 0.86 EGD: Large amount of retained solid liquid food noted in the stomach. Large superficial gastric antral ulceration involving most of the antrum extending i nto the pylorus causing pyloric stenosis. Biopsies were obtained. Chest x-ray film personally reviewed by me-scattered infiltrates Assessment plan: -Aspiration and gram-negative bacterial pneumonia a bilateral initially from retained gastric contents mostly food and liquids, causing acute hypoxic respiratory failure: On presentation: Subsequent bacterial pneumonia sputum culture November 25: Citrobacter freundii, Pseudomonas aeruginosa. December 13: Klebsiella oxytoca, Pseudomonas aeruginosa IV meropenem-, IV Zosyn.IV ceftolozane/tazobactam, IV daptomycin, tobramycin- all discontinued Currently getting IV ciprofloxacin. , ceftolozane-tazobactam. -Patient became asynchronous with the ventilator. On Precedex drip -Breakdown of tracheostomy stoma site. Dressing in place Being followed by chemical inspector -Sepsis with septicemia from above Patient received multiple antibiotics -Right l lung abscess, pigtail catheter placed January 07, 2024. Initially about 200 cc of pus obtained. During the procedure large amount of pus poured out of the tracheostomy site when patient was rolled on the left side. Status post bronchoscopy with some lavage on 01/07/2024 - lung abscess larger 1 on the right side-patient cultures are growing Pseudomonas and Klebsiella oxytoca: Slow to respond , Received other antibiotics. Currently on Floxin, Diflucan and tobramycin. -Acute pulmonary edema and fluid overload from hypoalbuminemic state and fluids from IV.:: Has been getting Lasix and dialysis: Both held -Altered mentation. Possibly encephalopathy. Could be delirium.: Proving CT brain [December 06] nothing acute Neurology following EEG-evidence of generalized cerebral dysfunction and sporadic intermittent higher amplitude sharply contoured waves mainly bifrontal. Showing cortical irritability. Keppra was started on December 07 -Critical care poly- Pedro neuropathy: Slow to respond PT OT -Gallstones, asymptomatic -Small l bowel perforation at site of jejunostomy tube tip with balloon..: Portion of small bowel resected. On November 24. New J-tube was placed.- drainage to gravity:-Now discontinued December 19: J-tube blocked. J-tube replaced on December 20 over wire December 21: Leaking around the J-tube site. Feeding held December 23: J feeding was started yesterday evening but again started leaking increasingly around the J-tube site-feeding held again December 24: J-tube feeding has been held. Patient is currently having increased drainage from the J-tube site -Acute kidney injury. Possible ATN from hypotensive shock: Resolved Renal ultrasound unremarkable. Started on renal replacement therapy on November 28. Last hemodialysis on December 17. Being followed by an nephrology. Good urine output. -Nutrition Jejunostomy tube placed November [address] Ewing Received TPN-this was discontinued. TPN lipids restarted on December 24 -Lung abscess, not improving Antibiotics to continue. Pulmonary and ID following On ciprofloxacin, Diflucan and tobramycin. -Midline abdominal incision wound dehiscence Wound VAC placed -Acute recurrent atrial fibrillation-converted to sinus rhythm Received IV amiodarone. Cardiology following Lopressor -Acute hypoxic respiratory failure from aspiration pneumonia, status post ventilator assisted: Reintubated November 25. FiO2 35 PEEP of 5 Tracheostomy tube-by Dr. Zepeda on December 09 -Septic shock, recovered -Hypertension, recurrent Had received Cleviprex. Hydralazine added -Intermittent hypotension: Corrected Intermittent use of Levophed. 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 Also anemia of blood draw. Iron deficiency anemia Received total of 6 units of blood IV iron. -Severe thrombocytopenia. Would consider coagulation disorder secondary to infection., In the setting of underlying lymphoma.: Fluctuating with infection Hematology following. -Acute blood loss anemia, -Sacral stage II decub ulcer Dressing in place -Hypokalemia, multiple causes -Hypoglycemia -GERD PPI -Acute diarrhea secondary to tube feeding.: Resolved C. difficile ruled out. -Large superficial gastric antral ulceration involving the gastric antrum extending into the pylorus with gastric outlet obstruction. 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 -DNR made on January 12 On Precedex. IV ciprofloxacin and Diflucan, started on tobramycin by infectious disease. Disposition: Specialist [facility], manager of case on board and working on placement. Monitor vital signs and labs Labs and medication were reviewed. Continue same treatment. Further recommendations as per clinical course of the patient PHYSICAL EXAMINATION: GENERAL: The patient is A&O x3, NAD HEENT: EOMI, Sclerae anicteric, Moist Mucous membranes Neck: Supple, Non tender, No JVD PULMONARY: Equal breath souds B/L, No wheezing, No crackles. CARDIOVASCULAR: S1, S2 present. No murmurs, rubs, or gallops. ABDOMEN: Soft, nontender, nondistended, normoactive bowel sounds. No guarding or rebound tenderness. MUSCULOSKELETAL: No edema, No cyanosis. No clubbing. Normal ROM. Intact peripheral pulses. NEUROLOGICAL: CN 2-12 grossly intact. No FND Skin: No Rash REVIEW OF SYSTEMS: CONSTITUTIONAL: No fever or chills. CARDIOVASCULAR: No chest pain, palpitations or syncope. PULMONARY: No shortness of breath, no cough, sore throat. GASTROINTESTINAL: No nausea, vomiting, diarrhea, abdominal pain. : No Dysuria, urgency, frequency. Extremities: No edema. NEUROLOGICAL: No headaches, no weakness, or numbness Dictation was produced using [employer] dictation software. please excuse any grammatical, word or spelling errors. Objective - Vital Signs Vital signs: Vital Signs Temp 97.9 F 01/17/24 12:00 Pulse 76 01/17/24 15:34 Resp 20 01/17/24 15:00 BP 122/86 01/17/24 15:00 Pulse Ox 99 01/17/24 15:00 FiO2 30 01/17/24 15:17 Intake & Output 01/16/24 01/17/24 01/17/24 18:59 06:59 18:59 Intake Total 2749.493 3240.887 1563.193 Output Total 1974 2024 1205 Balance 729.663 4000.887 358.193 Weight 100.2 kg 107.6 kg Intake: IV 1140 1780 1265 0.9 Normal Saline @ KVO 50 50 45 Ceftolozane/Tazobactam 3 100 gm In Sodium Chloride 0.9 % 100 ml @ 100 mls/hr IV Q8HR [facility] Rx#:[id number] Ciprofloxacin/Dextrose 400 Pmx 400 mg In Dextrose/ Water 1 200ml.bag @ 200 mls/hr IVPB Q8H [facility] Rx#: [id number] Fat Emulsion 20% 250 ml 250 In Empty Bag 1 bag @ 21 mls/hr IV TuThSa@0900 [facility] Rx#:[id number] Fluconazole in NaCl,Iso- 100 Osm 200 mg In Saline 1 100ml.bag @ 100 mls/hr IVPB DAILY [facility] Rx#: [id number] Magnesium Sulfate-D5w Pmx 100 1 gm In Dextrose/Water 1 100ml.bag @ 100 mls/hr IVPB ONCE ONE Rx#: [id number] Magnesium Sulfate-D5w Pmx 100 1 gm In Dextrose/Water 1 100ml.bag @ 100 mls/hr IVPB Q1H [facility] Rx#: [id number] Potassium Chloride 10 meq 100 In Water For Injection 1 100ml.bag @ 100 mls/hr IVPB Q1H [facility] Rx#: [id number] Potassium Chloride 20 meq 100 In Water For Injection 1 100ml.bag @ 50 mls/hr IVPB Q2H [facility] Rx#: [id number] TPN 990 1080 720 Intake, IV Titration 8521.038 2188.887 298.193 Amount Dexmedetomidine/0.9% NaCl 390.493 398.887 298.193 (Pmx) 400 mcg In Empty Bag 1 bag @ 0.2 MCG/KG/HR 5.2 mls/hr IV .[id number] [facility] Rx#:[id number] Fat Emulsion 20% 250 ml 189 21 In Empty Bag 1 bag @ 21 mls/hr IV TuThSa@0900 [facility] Rx#:[id number] Mvi, Adult No.4 with Vit 1041 K 10 ml Trace (Conc-1Ml/ Dose) 1 ml Sodium Acetate 30 meq Magnesium Sulfate gm 1 gm Calcium Gluconate 0.5 gm Potassium Phosphate 9 mmol Potassium Acetate 10 meq In Amino Acids 5 %/ Dextrose 20 % 1,000 ml @ 90 mls/hr IV .BY DURATION [facility] Rx#:[id number] Sodium Acetate 30 meq 1030 Magnesium Sulfate gm 1 gm Calcium Gluconate 0.5 gm Potassium Phosphate 9 mmol Potassium Acetate 10 meq In Amino Acids 5 %/ Dextrose 20 % 1,000 ml @ 90 mls/hr IV .BY DURATION [facility] Rx#:[id number] Output: Chest Tube Drainage 200 70 30 Chest Tube Right 200 70 30 Drainage 200 60 0 Medial Abdomen 0 0 Right Abdomen 200 60 Right Upper Posterior 0 Chest Urine 1575 1895 1175 Other: Voiding Method Indwelling Catheter Indwelling Catheter Indwelling Catheter # Bowel Movements 1 ABP, PAP, CO, CI - Last Documented Arterial Blood Pressure 173/76 - Labs CBC & Chem 7: 01/17/24 05:48 01/17/24 05:17 Labs: Abnormal Lab Results - Last 24 Hours (Table) 01/16/24 01/16/24 01/17/24 Range/Units 16:55 23:40 05:17 WBC (3.8-10.6) k/uL RBC (4.30-5.90) m/uL Hgb (13.0-17.5) gm/dL Hct (39.0-53.0) % RDW (11.5-15.5) % Sodium 132 L (137-145) mmol/L Potassium 3.3 L (3.5-5.1) mmol/L BUN 34 H (9-20) mg/dL Glucose 180 H (74-99) mg/dL POC Glucose (mg/dL) 185 H 223 H (70-110) mg/dL Calcium 6.9 L (8.4-10.2) mg/dL 01/17/24 01/17/24 01/17/24 Range/Units 05:48 05:48 11:21 WBC 16.3 H (3.8-10.6) k/uL RBC 2.65 L (4.30-5.90) m/uL Hgb 8.1 L D (13.0-17.5) gm/dL Hct 24.2 L (39.0-53.0) % RDW 17.3 H (11.5-15.5) % Sodium (137-145) mmol/L Potassium (3.5-5.1) mmol/L BUN (9-20) mg/dL Glucose (74-99) mg/dL POC Glucose (mg/dL) 181 H 215 H (70-110) mg/dL Calcium (8.4-10.2) mg/dL
[2024-01-17 18:03] LABS: Glucose,Whole Blood 177 mg/dL (70-110)
[2024-01-17] MEDS: 1: MVI, ADULT NO.4 WITH VIT K 10 ML, TRACE (CONC-1ML/DOSE) 1 ML, SODIUM ACETATE 30 MEQ, IV SCH (18:51)
[2024-01-17 23:16] LABS: Glucose,Whole Blood 158 mg/dL (70-110)
[2024-01-17] MEDS ORDERED: Potassium Replacement Protocol 1 EACH MISC MISCELLANE PRN (23:48)
[2024-01-18] MEDS: POTASSIUM CHLORIDE 10 MEQ in WATER FOR INJECTION 1 100ML.BAG IVPB SCH (00:08)
--- NOTE | 2024-01-18 03:38 | P.PN ---
Progress Note - Text Progress Note Date: 01/18/24 HISTORY OF PRESENT ILLNESS: Patient shon in the ICU and on mechanical ventilation. Patient is more awake and alert. He is able to follow commands. He is on TPN for nutrition support. There has been decreased drainage from around the J-tube. No acute events overnight. PHYSICAL EXAM: VITAL SIGNS: Reviewed. GENERAL: frail, weak HEENT: Tracheostomy site clean dry and intact ABDOMEN: Soft. Nondistended. Midline incision with wound VAC in place and intact with granulation tissue. RAYA drain in place. RAYA tube with decrease in surrounding drainage ASSESSMENT: 1. 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 Status post J-tube placement and revision for small bowel obstruction 2. Abdominal wound dehiscence status post wound VAC placement 3. Status post tracheostomy PLAN: -pool manager is working on transferring patient to [facility] -Wound VAC scheduled changes. If [facility] cannot go to [facility] with [facility] VAC can do wet-to-dry dressings on midline incision wound -Continue supportive care -Continue TPN for nutrition support Dick Ewing DO [facility] [phone]
[2024-01-18 05:43] LABS: Glucose,Whole Blood 187 mg/dL (70-110)
[2024-01-18 08:44] LABS: Anisocytosis Slight; Basophils # (A) 0.1 k/uL (0-0.2); Basophils % (A) 0 %; Eosinophils # (A) 0.2 k/uL (0-0.7); Eosinophils % (A) 1 %; HCT 23.2 % (39.0-53.0); HGB 7.4 gm/dL (13.0-17.5); Hypochromasia Slight; Lymphocytes # (A) 2.9 k/uL (1.0-4.8); Lymphocytes % (A) 18 %; MCH 29.5 pg (25.0-35.0); MCV 92.3 fL (80.0-100.0); Mean Platelet Volume 7.3; Monocytes % (A) 6 %; Neutrophils # (A) 11.5 k/uL (1.3-7.7); Neutrophils % (A) 73 %; Platelet Count 334 k/uL (150-450); RBC 2.52 m/uL (4.30-5.90); RDW 17.2 % (11.5-15.5); WBC 15.8 k/uL (3.8-10.6)
[2024-01-18 09:06] LABS: Ionized Calcium 4.5 mg/dL (4.5-5.3)
[2024-01-18 09:19] LABS: ALT 26 U/L (4-49); AST 33 U/L (17-59); African American GFR (CKD) >90 (>60 ml/min/1.73 sqM); Albumin 2.1 g/dL (3.5-5.0); Alkaline Phosphatase 194 U/L (38-126); Anion Gap 3 mmol/L; Blood Urea Nitrogen 32 mg/dL (9-20); Calcium 7.1 mg/dL (8.4-10.2); Carbon Dioxide 24 mmol/L (22-30); Chloride 103 mmol/L (98-107); Glucose 194 mg/dL (74-99); Magnesium 1.8 mg/dL (1.6-2.3); Non-African American GFR(CKD) >90 (>60 ml/min/1.73 sqM); Phosphorus 2.9 mg/dL (2.5-4.5); Sodium 130 mmol/L (137-145); Total Bilirubin 0.6 mg/dL (0.2-1.3)
--- NOTE | 2024-01-18 11:24 | XR ---
EXAMINATION TYPE: XR chest 1V portable DATE OF EXAM: 01/18/2024 10:41 AM COMPARISON: None. CLINICAL INDICATION: Male, 73 years old with history of Hypoxemia, TECHNIQUE: XR chest 1V portable view(s) obtained. FINDINGS: The heart size is normal. The pulmonary vasculature is normal. There is improving left lower lobe infiltrate. Small right lower lung effusion may be present. Previous drainage catheter remains stable in position . Port has tip within the right atrium. Left-sided PICC line tip is in distal superior vena cava toby on. Tracheostomy tube is in the midline. IMPRESSION: 1. Improving left lower lobe infiltrate. 2. Resolving right lower lobe consolidation. A drainage catheter remains in position [facility], , 01/18/2024 11:22 AM
[2024-01-18 11:27] LABS: Glucose,Whole Blood 175 mg/dL (70-110)
--- NOTE | 2024-01-18 11:35 | P.PN ---
Subjective Progress Note Date: 01/18/24 Principal diagnosis: Acute hypoxic respiratory failure requiring intubation mechanical ventilation secondary to aspiration. This is a 73-year-old white male with history of chronic abdominal pain for the last 8 months has been treated with Protonix 40 mg daily for the last 3 months with no improvement. Patient had a 22 pound weight loss in the last [address] of the abdomen and pelvis 3 weeks ago showed thickening of the antral wall with pathological adenopathy posterior to the stomach suspicious of neoplasm. Today the patient underwent elective upper endoscopy to evaluate further, patient received IV sedation by anesthesia endoscope was inserted into the mouth, esop hagus was intubated without any difficulty there was evidence of large amount of liquid and solid food noted in the stomach suggestive of gastric outlet obstruction. Scope could not be advanced through the pylorus, however in the prepyloric area there was a large superficial ulceration identified with multiple biopsies were done from this area. The body cardia and fundus could not adequately visualize because of large amount of retained food in the stomach. Scope was withdrawn back to the stomach and upon careful examination the mucosa of the antrum body and cardia as well as the fundus appeared normal. Procedure was being performed and biopsies were done patient threw up and subsequently became hypoxic there was clearly evidence of witnessed aspiration anesthesia intubated the patient, procedure was terminated, and the patient was transferred to the ICU, this consult was initiated. Patient is now on assist- control rate of 20 tidal volume 500 FiO2 70% PEEP of 10 ABG is pending, earlier ABG showed profound hypoxia patient is on propofol at 50 mcg/kg/min, next ABG is pending. Chest x-ray showed chronic changes without evidence of acute pulmonary disease. 01/10/2024, the patient is on low-dose Precedex. Currently comfortable, sensitive to mechanical ventilator. Output from the pigtail has dropped and the patient continues to have a positive airleak. The chest x-ray shows bilateral consolidation worse on the right and there is a small right apical pneumothorax. Pigtail catheter is in a good location. Blood gas showed a pH of 7.48 with a pCO2 of 35 and a pO2 of 83. He is on assist-control mode with rate of 20, tidal volume of 600, FiO2 30% with a PEEP of 5. RAYA drain output is serosanguineous. TPN is at 90 cc an hour. Fluid balance is -700 cc. The white cell count is at 15.4, hemoglobin is at 6.7 and the patient was given a unit of packed RBC and a platelet count is 188. Electrolytes show a BUN of 46 with a creatinine of 0.7, sodium of 135, potassium level of 3.3. Antibiotics has been modified to a combination of ciprofloxacin and tobramycin as the patient showed quinolone sensitive Pseudomonas in the sputum and in the drain the abscess from the right lung. 01/11/2024, the patient is being seen for a follow-up. Patient is currently on low-dose Precedex at 0.2 mcg/kg/min. Calm and comfortable, no significant coughing. Remains on the mechanical ventilator./On the same vent setting which includes assist-control of 20, tidal volume of 600, FiO2 30% with a PEEP of 5. Chest x-ray shows a right apical pneumothorax, extensive consolidation of the right lung and some limited consolidation in the left and the catheter is in place with purulent output. There is also possibility through the pigtail catheter. Tracheostomy tube is in good location. Remains on tobramycin and ciprofloxacin. The white cell count of 13.6, hemoglobin 8.4 and platelet count is at 208. Blood gas from today showed a pH of 7.48 with a pCO2 of 33 and pO2 of 93. Sodium is at 134, potassium is at 3.7, BUN is 44 with a creatinine of 0.8. LFTs are normal and the patient has an alkaline phosphatase of 233 as the patient continues to receive TPN for nutritional support. Triglyceride levels at 187. Otherwise, no other significant changes condition. Cardiac rhythm remains sinus. The patient is producing adequate amount of urine output. Extremely debilitated, extremely weak, J-tube is not functional and there is leak around the J-tube. The patient was seen again by general surgery and there is no plan to exchange the J-tube. Concern of some leak around the J-tube and based on that an ostomy appliance will be applied around the J-tube. On 01/12/2024, clinically unchanged, remains on Precedex at 0.7 mcg/kg/h. Remains on TPN for nutritional support. Remains on same ventilator settings with assist-control mode rate of 20, tidal volume of 500, FiO2 30% with a PEEP of 5. No blood gases are available from today. Repeat chest x-ray shows stable findings. Stable right apical pneumothorax. Consolidation involving the right lung and the left base remains unchanged. Sputum sample was positive for Pseudomonas aeruginosa and the patient remains on a combination of ciprofloxacin and tobramycin. The patient has positive air leak in his pigtail catheter and total amount of output overnight and over the past 12 hours has been in the order of 80 cc. Extremely debilitated. Extremely weak. Not coherent although arousable. evaluated today on 01/13/2024, remains in the ICU, patient remains intubated and mechanically ventilated, he is on volume control plus with tidal volume of 500 rate 20 FiO2 30% and PEEP of 5 ABG showed a pO2 of 90 pCO2 35 pH of 7.45. No changes were made in ventilator settings. Patient remains on Precedex at 0.8 mcg/kg/h remains on TPN at 90 cc/h patient remains on multiple antibiotics including Cipro fluconazole and tobramycin patient has resistant Pseudomonas in the sputum. Continues to have an air leak in the right-sided chest tube and he has a pigtail catheter in place. Chest x-ray continues showed significant airspace disease bilaterally. Patient is arousable but does not follow any instructions, he is a bit encephalopathic. Family is at bedside, and I had a long discussion with the family regarding his condition and prognosis.WBC count today 6.2 hemoglobin 8.1. Basic metabolic profile is normal renal profile is normal bicarb is 20. Albumin is 1.9. Patient is receiving Dilaudid intermittently for agitation. And that seems to calm down along with Precedex. Patient was seen today on 01/14/2024, patient remains in the ICU, intubated and mechanically ventilated, on volume control plus mode of mechanical ventilation with rate of 20 tidal volume 500 FiO2 30% and PEEP of 5 ABG showed a pO2 of 43 pCO2 of 40 pH of 7.3, however I believe there is an error in the pO2 since his O2 saturation is presently 100%. Patient remains on Precedex, 1.2 mcg/kg/h is also on TPN at 90 cc/h antibiotics were changed he is now on Zerbaxa Cipro and fluconazole. Patient had a -2.8 L over the last 24 hours, today he is awake, follows simple instructions. Remains intubated and mechanically ventilated, and noted to be a bit tachypneic. Patient is not requiring any pressors not requiring any propofol, hemodynamically stable, no chest x-ray was done today, continues to have air leak in the Pleur-evac. WBC is 15.3 hemoglobin 8.3, basic metabolic profile is normal renal profile is normal Patient was evaluated today on 01/15/2024, remains in the ICU, remains intubated and mechanically ventilated. Remains on volume control plus mode of mechanical ventilation with a rate of 20 tidal volume 500 FiO2 30% and PEEP of 5 No ABG was done today. Patient is awake, he looks comfortable, has I will give him a trial of pressure support of 14 and CPAP today. Continues to have multiple drips Precedex, at 1.3 mcg/kg/h he is also on TPN at 90 cc/h receiving Dilaudid 1 mg every 2 hours as needed patient is on the backside, ciprofloxacin, and fluconazole. Patient is to be placed on hospice possibly in the next 24 hours, family discussed his condition with hospice staff apparently yesterday. And the plan is to proceed with hospice on . Continues to have air leak from the pigtail catheter/pleural VAC. Chest x-ray continues to show bilateral airspace disease specially in the right lower lobe and left lower lobe, sputum has been positive for resistant Pseudomonas WBC count is 17 hemoglobin 7.9 basic metabolic profile is normal BUN is 40 creatinine 0.76 Patient was reevaluated today on 01/16/2024, patient remains in the ICU, intubated and mechanically ventilated, he is on pressure control mode of mechanical ventilation, with rate 20, pressure control of 15, inspiratory time of 0.8, FiO2 30% and PEEP of 5. Hemoglobin today is down to 6.5 WBC count is 12.3 hematocrit is 24.3 family is now requesting to have hospice at home, however the patient will not be able to make it home unless we could temporarily arrange for portable ventilator, will look into the possibility of doing so. In the meantime patient remains on treatment for his infections an Pseudomonas in the sputum, and in the pleural effusion fluid.d patient remains on TPN remains on Precedex at 1.5 mcg/kg/h. Patient is extremely frail, ill looking, chronically ill, and extremely weak Patient was reevaluated today on 01/17/2024, patient was supposed to be sent home today with hospice to follow at home, however the family today/ change her mind, and asking to consider palliative care, she is also asking for a second opinion but she is not specific about the second opinion, explained to her that the only 3 hob machine operator that we have in this institution is myself Dr. Jimenez and Dr. Nieves and we have all given the same opinion, and if she could find a place where they could accept him to transfer to another institution, I will be more than happy to do so patient was declined transfer to [facility] he was also declined transfer to the [facility]. Today he is on pressure control mode of mechanical ventilation basically unchanged compared to yesterday. He remains on Precedex 1.4 mcg/kg/h remains on TPN, still could not use his J-tube. Patient is intermittently on Dilaudid, an tibiotics arce he is receiving Cipro and fluconazole. Patient had multiple attempts to wean, could not tolerate more than few hours of pressure support of 14 and CPAP this has been done quite frequently and sometimes he does not even tolerate the switch from pressure control mode of mechanical ventilation to pressure support of mechanical ventilation. Patient is definitely a failure to wean and multiple attempts have failed. Patient has critical illness polyneuropathy he continues to have some nonspecific airspace disease bilaterally continues to have a pigtail catheter in place, and continues to have air leak,WBC count today is 16.3 hemoglobin 8.1 electrolytes showed low potassium of 3.3 being addressed accordingly renal profile is normal. Chest x- ray today is actually showing improvement compared to the previous x-rays he had all along. With significant improvement in the right upper lobe and the right lower lobe, continues to have some infiltrate in the left lower lobe Castriz seems to be intact Patient was seen01/18/24, remains in the ICU, remains intubated and mechanically ventilated, he is on pressure control mode of mechanical ventilation with pressure control of 15, DI of 0.8, rate 20, FiO2 30% and PEEP of 5 no ABG was done this morning did not feel to be necessary. Patient had a WBC of 15.8 hemoglobin 7.4. Basic metabolic profile is normal renal profile is normal continues to have bilateral airspace disease on chest x-ray specially the right upper lobe, and left lower lobe. Continues to have a pigtail catheter in place and continues to drain and he continues to have a air leak. Patient remains on ciprofloxacin, he is also on fluconazole, tobramycin was added by infectious disease on the case. Patient is getting now physical therapy and Occupational T herapy, he remains on Precedex at 1.3 mcg/kg/h he is also on TPN at 90 cc/h chest x-ray was noted and again he has bilateral airspace disease. Patient remains frail, chronically ill, and he does have clearly critical illness polyneuropathy. No plans by surgery to do much about his J-tube, continues to have a wound VAC in place. Today the patient will be given another trial of pressure support and CPAP, and will document how long he could do on pressure support mode of mechanical ventilation Objective - Vital Signs Vital signs: Vital Signs Temp 97.8 F 01/18/24 08:00 Pulse 92 01/18/24 11:00 Resp 18 01/18/24 11:00 BP 126/85 01/18/24 11:00 Pulse Ox 97 01/18/24 11:00 FiO2 30 01/18/24 11:02 Intake & Output 01/17/24 01/18/24 01/18/24 18:59 06:59 18:59 Intake Total 2241.360 2202.656 738.520 Output Total 1820 1825 625 Balance 421.360 377.656 113.520 Weight 100.7 kg Intake: IV 1850 1915 573 0.9 Normal Saline @ KVO 60 125 50 Ciprofloxacin/Dextrose 200 400 Pmx 400 mg In Dextrose/ Water 1 200ml.bag @ 200 mls/hr IVPB Q8H [facility] Rx#: [id number] Fat Emulsion 20% 250 ml 63 In Empty Bag 1 bag @ 21 mls/hr IV TuThSa@0900 [facility] Rx#:[id number] Fluconazole in NaCl,Iso- 100 100 Osm 200 mg In Saline 1 100ml.bag @ 100 mls/hr IVPB DAILY [facility] Rx#: [id number] Magnesium Sulfate-D5w Pmx 100 1 gm In Dextrose/Water 1 100ml.bag @ 100 mls/hr IVPB ONCE ONE Rx#: [id number] Magnesium Sulfate-D5w Pmx 100 1 gm In Dextrose/Water 1 100ml.bag @ 100 mls/hr IVPB Q1H [facility] Rx#: [id number] Potassium Chloride 10 meq 100 In Water For Injection 1 100ml.bag @ 100 mls/hr IVPB Q1H [facility] Rx#: [id number] Potassium Chloride 20 meq 100 400 In Water For Injection 1 100ml.bag @ 50 mls/hr IVPB Q2H [facility] Rx#: [id number] TPN 990 990 360 Tobramycin Sulfate 600 mg 100 In Sodium Chloride 0.9% 100 ml @ 115 mls/hr IVPB Q48H [facility] Rx#:[id number] Intake, IV Titration 391.360 287.656 165.520 Amount Dexmedetomidine/0.9% NaCl 391.360 287.656 165.520 (Pmx) 400 mcg In Empty Bag 1 bag @ 0.2 MCG/KG/HR 5.2 mls/hr IV .[id number] [facility] Rx#:[id number] Output: Chest Tube Drainage 100 10 10 Chest Tube Right 100 10 10 Drainage 20 35 0 Medial Abdomen 0 0 Right Abdomen 20 35 Urine 1700 1780 615 Other: Voiding Method Indwelling Catheter Indwelling Catheter Indwelling Catheter ABP, PAP, CO, CI - Last Documented Arterial Blood Pressure 173/76 - Exam General: Revealed 73-year-old white male on mechanical ventilation Skin: Skin is warm and dry and no rashes or lesions are noted. Eye: Pupils are equal, round and reactive to light, extra-ocular movements are intact; there is normal conjunctiva bilaterally. Ears, nose, mouth and throat: There are moist mucous membranes and no oral lesions. Neck: The neck is supple, there is no tenderness or JVD. Tracheostomy is intact. Cardiovascular: There is a regular rate and rhythm. No murmur, rub or gallop is appreciated. Respiratory: Crackles at the bases, no rhonchi no wheezes, right-sided pigtail catheter is noted, evidence of air leak noted. Gastrointestinal: no rebound, no guarding, no bowel sounds, wound VAC is noted jejunostomy tube is noted Musculoskeletal: No deformities and no limitation range of motion other the patient seems to be generally weak. Neurological: Patient is awake ,generally weak, follows simple instructions today like squeezing hands and wiggling toes. Extremities: Trace of bipedal edema - Labs CBC & Chem 7: 01/18/24 08:20 01/18/24 08:20 Labs: Abnormal Lab Results - Last 24 Hours (Table) 01/17/24 01/17/24 01/18/24 Range/Units 18:02 23:14 05:42 WBC (3.8-10.6) k/uL RBC (4.30-5.90) m/uL Hgb (13.0-17.5) gm/dL Hct (39.0-53.0) % RDW (11.5-15.5) % Neutrophils # (1.3-7.7) k/uL Sodium (137-145) mmol/L BUN (9-20) mg/dL Glucose (74-99) mg/dL POC Glucose (mg/dL) 177 H 158 H 187 H (70-110) mg/dL Calcium (8.4-10.2) mg/dL Alkaline Phosphatase (38-126) U/L Total Protein (6.3-8.2) g/dL Albumin (3.5-5.0) g/dL 01/18/24 01/18/24 01/18/24 Range/Units 08:20 08:20 11:25 WBC 15.8 H (3.8-10.6) k/uL RBC 2.52 L (4.30-5.90) m/uL Hgb 7.4 L (13.0-17.5) gm/dL Hct 23.2 L (39.0-53.0) % RDW 17.2 H (11.5-15.5) % Neutrophils # 11.5 H (1.3-7.7) k/uL Sodium 130 L (137-145) mmol/L BUN 32 H (9-20) mg/dL Glucose 194 H (74-99) mg/dL POC Glucose (mg/dL) 175 H (70-110) mg/dL Calcium 7.1 L (8.4-10.2) mg/dL Alkaline Phosphatase 194 H (38-126) U/L Total Protein 6.0 L (6.3-8.2) g/dL Albumin 2.1 L (3.5-5.0) g/dL Assessment and Plan Assessment: Impression: Acute hypoxic respiratory failure requiring intubation mechanical ventilation secondary to aspiration. Status post tracheostomy on 12/10/2023 The patient has bilateral pneumonia with a cavitary infiltrate in the right upper lobe, secondary to Pseudomonas aeruginosa and Citrobacter and the patient is currently on a combination of ciprofloxacin, fluconazole, and tobramycin CAT scan of the chest done on 12/17/2023 was reviewed and the patient has a cavitating cyst/abscess in the posterior aspect of the right upper lobe in addition to patchy opacities bilaterally right more than left consistent with pneumonia,/gram-negative pneumonia. The patient had a pigtail catheter inserted with drainage of the right lung abscess. The bronchial washing is positive for Pseudomonas aeruginosa, quinolone sensitive and the cultures from the pigtail catheter/lung abscess was also positive for Pseudomonas aeruginosa.. Status post J-tube placement 11/16/2023, multiple complications since then related to the J-tube placement requiring multiple surgeries. Ongoing leak kapil und the J-tube, improving still cannot use the J-tube for feeding Persistent right apical pneumothorax with persistent air leak noted in the pigtail catheter Acute peritonitis secondary to above, secondary to small bowel perforation with abdominal contamination Septic shock secondary to above Paroxysmal atrial fibrillation Weight loss secondary to non-Hodgkin's lymphoma Acute aspiration pneumonia/right upper lobe lung abscess, remains on antibiotics Acute aspiration during upper endoscopy most likely secondary to gastric outlet obstruction secondary to non-Hodgkin's lymphoma based on the pathology from stomach biopsies 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 Critical illness polyneuropathy Metabolic encephalopathy Malfunctioning of the J-tube Recommendation: Continue ventilatory will try another trial of weaning today with pressure support and CPAP using pressure support of 14 Continue antibiotics and antifungal therapy, as per ID on the case Continue Dilaudid and Precedex Continue nutritional support/TPN Continue physical therapy Continue chest PT and frequent suctioning Continue GI and DVT prophylaxis food and nutrition services assistant is looking into select care specialty again Remains critically ill, prognosis is extremely poor Critical care time is over 30 Will continue to follow Time with Patient: Greater than 30
--- NOTE | 2024-01-18 12:52 | P.PN ---
Subjective Progress Note Date: 01/18/24 Patient is seen in follow-up for acute kidney injury. Patient underwent exploratory laparotomy with small bowel obstruction NG tube replacement November 25, 2023. Nonoliguric. Started on hemodialysis November 29, 2023. Currently off of dialysis as renal function has recovered. Last dialysis on 12/18/2023. Dialysis catheter has been removed. More awake today and responsive. Vital signs stable. General: Resting in bed. HEENT: Tracheostomy noted. LUNGS: Scattered rhonchi. HEART: Regular rate and rhythm. ABDOMEN: No drainage. EXTREMITITES: 1+ edema. Objective - Vital Signs Vital signs: Vital Signs Temp 97.8 F 01/18/24 08:00 Pulse 87 01/18/24 10:00 Resp 27 H 01/18/24 10:00 BP 118/85 01/18/24 10:00 Pulse Ox 97 01/18/24 10:00 FiO2 30 01/18/24 09:55 Intake & Output 01/17/24 01/18/24 01/18/24 18:59 06:59 18:59 Intake Total 2241.360 2202.656 650.653 Output Total 1820 1825 625 Balance 421.360 377.656 25.653 Weight 100.7 kg Intake: IV 1850 1915 573 0.9 Normal Saline @ KVO 60 125 50 Ciprofloxacin/Dextrose 200 400 Pmx 400 mg In Dextrose/ Water 1 200ml.bag @ 200 mls/hr IVPB Q8H [facility] Rx#: [id number] Fat Emulsion 20% 250 ml 63 In Empty Bag 1 bag @ 21 mls/hr IV TuThSa@0900 [facility] Rx#:[id number] Fluconazole in NaCl,Iso- 100 100 Osm 200 mg In Saline 1 100ml.bag @ 100 mls/hr IVPB DAILY [facility] Rx#: [id number] Magnesium Sulfate-D5w Pmx 100 1 gm In Dextrose/Water 1 100ml.bag @ 100 mls/hr IVPB ONCE ONE Rx#: [id number] Magnesium Sulfate-D5w Pmx 100 1 gm In Dextrose/Water 1 100ml.bag @ 100 mls/hr IVPB Q1H [facility] Rx#: [id number] Potassium Chloride 10 meq 100 In Water For Injection 1 100ml.bag @ 100 mls/hr IVPB Q1H [facility] Rx#: [id number] Potassium Chloride 20 meq 100 400 In Water For Injection 1 100ml.bag @ 50 mls/hr IVPB Q2H [facility] Rx#: [id number] TPN 990 990 360 Tobramycin Sulfate 600 mg 100 In Sodium Chloride 0.9% 100 ml @ 115 mls/hr IVPB Q48H [facility] Rx#:[id number] Intake, IV Titration 391.360 287.656 77.653 Amount Dexmedetomidine/0.9% NaCl 391.360 287.656 77.653 (Pmx) 400 mcg In Empty Bag 1 bag @ 0.2 MCG/KG/HR 5.2 mls/hr IV .[id number] [facility] Rx#:[id number] Output: Chest Tube Drainage 100 10 10 Chest Tube Right 100 10 10 Drainage 20 35 0 Medial Abdomen 0 0 Right Abdomen 20 35 Urine 1700 1780 615 Other: Voiding Method Indwelling Catheter Indwelling Catheter Indwelling Catheter ABP, PAP, CO, CI - Last Documented Arterial Blood Pressure 173/76 - Labs CBC & Chem 7: 01/18/24 08:20 01/18/24 08:20 Labs: Abnormal Lab Results - Last 24 Hours (Table) 01/17/24 01/17/24 01/17/24 Range/Units 11:21 18:02 23:14 WBC (3.8-10.6) k/uL RBC (4.30-5.90) m/uL Hgb (13.0-17.5) gm/dL Hct (39.0-53.0) % RDW (11.5-15.5) % Neutrophils # (1.3-7.7) k/uL Sodium (137-145) mmol/L BUN (9-20) mg/dL Glucose (74-99) mg/dL POC Glucose (mg/dL) 215 H 177 H 158 H (70-110) mg/dL Calcium (8.4-10.2) mg/dL Alkaline Phosphatase (38-126) U/L Total Protein (6.3-8.2) g/dL Albumin (3.5-5.0) g/dL 01/18/24 01/18/24 01/18/24 Range/Units 05:42 08:20 08:20 WBC 15.8 H (3.8-10.6) k/uL RBC 2.52 L (4.30-5.90) m/uL Hgb 7.4 L (13.0-17.5) gm/dL Hct 23.2 L (39.0-53.0) % RDW 17.2 H (11.5-15.5) % Neutrophils # 11.5 H (1.3-7.7) k/uL Sodium 130 L (137-145) mmol/L BUN 32 H (9-20) mg/dL Glucose 194 H (74-99) mg/dL POC Glucose (mg/dL) 187 H (70-110) mg/dL Calcium 7.1 L (8.4-10.2) mg/dL Alkaline Phosphatase 194 H (38-126) U/L Total Protein 6.0 L (6.3-8.2) g/dL Albumin 2.1 L (3.5-5.0) g/dL Assessment and Plan Assessment: 1. Acute kidney injury secondary to ATN secondary to septic shock. Creatinine 0.86 on admission and up to 5.38 dated November 29, 2023. nonoliguric. UA fairly benign. No hydronephrosis noted on imaging. Started hemodialysis on 11/29/2023 for worsening volume status and acute kidney injury. Renal function has improved and dialysis catheter was discontinued on 12/28/2023 2. Perforated small bowel status post exploratory laparotomy with abdominal washout, small bowel resection and J-tube replacement November 25, 2023. 3. A-fib with RVR. s/p amiodarone drip. 4. Recently diagnosed gastric B-cell lymphoma. 5. Septic shock. 6. Hypokalemia status post replacement. Potassium is elevated today at 5.3 and TPN has been adjusted. 7. Hypophosphatemia, being supplemented in TPN. 9. Hypernatremia, status post D5W and improved. Now mildly hyponatremia Plan: IV Lasix as needed Continue TPN, recommend decrease water to aid with hyponatremia
[2024-01-18] MEDS ORDERED: SODIUM CHLORIDE 0.9% IVPB SCH (14:00)
[2024-01-18] MEDS ORDERED: TOBRAMYCIN SULFATE IVPB SCH (14:00)
[2024-01-18 17:33] LABS: Glucose,Whole Blood 188 mg/dL (70-110)
--- NOTE | 2024-01-18 21:15 | P.PN ---
Subjective This is a 73-year-old patient, follows with Dr. Patricia Deal. Patient was seen this morning in the ICU. Patient's and daughter at the bedside. History obtained predominantly by the . Patient been having trouble with his stomach symptoms for close to 8 months. Patient underwent EGD by Dr. Sahara Cheng yesterday. Patient was found to have ulcerated around the antrum and obstruction to the pylorus. A lot of retained food was found. Patient aspirated. Had to be intubated and brought to the ICU. On a Levophed drip. FiO2 50 and a PEEP of 6. Patient had been losing weight lost about 25 pounds. Previously has a history of mitral valve prolapse. November 13: ICU. Patient remains on Precedex drip and propofol drip. Did not do well attempted extubation yesterday. Patient been off Levophed. NG tube to suction. Spoke to patient's and son at the bedside. Biopsy results awaited. Hemoglobin dropped to 6.9 this morning. Get a unit of blood. November 14: ICU. Up in a chair. Extubated yesterday. NG tube to suction. at the bedside. 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 Oncology was consulted. They have ordered a port. Results discussed with Dr. Sahara Cheng. General surgery was consulted for J-tube placement. Discussed with at the bedside. Patient getting IV fluids, IV Zosyn,. Patient has been on IV amiodarone for A-fib-back in sinus rhythm. Multiple PACs. Did receive unit of blood yesterday. Also IV ferric gluconate. November 15: ICU. Patient earlier today underwent jejunostomy tube placement and a port placement. Patient awake. Answering questions. NG tube to suction present. Updated patient's . Patient remains on IV amiodarone and IV Zosyn. November 16: ICU. Up in the chair. NG tube present but not to suction. Trickle feeding through the jejunostomy tube should be started today. Dietitian has been on board. IV Zosyn to continue. Patient's and his sister at the bedside. Discussed. Also spoke with Dr. eSrna. Given patient has no other predisposing cardiac factors for the A-fib except acute illness. His LV function is normal. Left atrium is normal. He has already been loaded with IV amiodarone. Will switch him to oral Lopressor 12.5 twice daily. Hence will DC amiodarone. Patient yesterday had wheezing was put on bronchodilators steroids per pulmonary. November 17: Propped up in bed. NG tube was discontinued. Sinus rhythm. Remains NPO. Getting G-tube feeding at 40 cc an hour. Dietitian following. Get arrangements done for DC home tomorrow including tube feeding. Increase activity discussed with patient and elder daughter at the bedside. Still requiring oxygen. Incentive spirometry. November 18: Patient up in recliner. Earlier today spoke to social work manager David. Informed patient is rather weak and will be going to the [facility]. Looking at authorization. Denies came to the room and spoke to patient his and his daughter. They are very keen to take the patient home as 3 daughters all nurses and they will take care of him at home. Patient earlier today to abdominal cramping and some loose stools.'s tube feeding was held. Told the nurse to start back at the rate of 40 cc an hour. He was before the getting it at 55 cc an hour. Incentive spirometry was again emphasized. Patient remains on 4 L of oxygen. November 19: I saw the patient this morning. Hence I am in the evening. Morning was sitting with his sons. Has some edema. Lungs had crackles I gave him 40 mg of Lasix. He did make good urine. Tube feeding was held from the previous evening of because of abdominal cramping. Acute abdominal series showed nonspecific bowel gas pattern and SBO to be ruled out. Family and patient was updated. Told him discharge will depend on day by day. Later this afternoon CT scanAnd abdomen pelvis done. Showed small bowel to be 3 point centimeter dilated. Some anasarca. Gastric findings. Gallstones. Later spoke to Dr. Irby from general surgery. They will further review and decide about further plan of action. Will give further dose of IV Lasix because of fluid overload from likely hypoalbuminemia and IV fluids previously received. Patient may take his pills by mouth. Total time spent today about 1 hour with over 40 minutes of discussion. Patient did state his breathing is better after Lasix this morning. November 20: Saw the patient this morning. was present. Patient received 2 more doses of Lasix. Diuresed well. Breathing much better. Lungs are sounding better. Discussed with Dr. Zepeda other surgeon. He is taking 3 cc out of the balloon and the gastrostomy tube. Started trickle feeding at 5 cc an hour. Will see how this does. Later in the day ran into the and the daughter again. Did update them on the same. Dilaudid was discontinued yesterday but morphine was ordered by surgery for patient having pain. Concerns about GI issues with that we will DC the morphine. As family does not want the same. November 21: Patient reclining bed. Tired. Several family members at the bedside. Including his and eldest daughter. Patient started on trickle feed yesterday at 5 cc an hour. This morning he has been on 10 cc an hour. Still having some loose stools. C. difficile was ordered. Patient on 2 L of nasal cannula. Has diuresed well. Will give an additional dose of Lasix today. If C. difficile is negative and the diarrhea is from the tube feedings we may have to use a fecal management system to keep him comfortable. Otherwise patient remains NPO. Dietitian is following the patient. Care was discussed length with patient the and daughter at the bedside. Questions answered. Liquid Tylenol has been added for abdominal pain. Avoid narcotics. Elevated white count likely from Solu-Medrol 11/23/2023--patient was feeling better today. Multiple family member at beds jazmin. No issues overnight. Normal saline at 10 cc an hour, tube feeding at 20 cc an hour, remains on Zosyn, on 3 L oxygen. Afebrile. Heart rate 62, respiratory rate 16, blood pressure 114/67, saturating 91% on 3 L. WBCs 14.5, 9.7 hemoglobin. Platelet 242. BMP is unremarkable. Pulmonary and general surgery following. General surgery recommended to continue tube feeds at 20 cc/h. 11/24/2023--patient reported significant abdominal discomfort, also noted to have leak around G-tube. General surgery is following, evaluated the patient at bedside, adjusted tube feeds. Also reported having diarrhea, on 2 L oxygen, went up to 5 L. Blood pressure was low, 500 mL fluid bolus with close jorje toring of respiratory status ordered. Currently on DuoNebs, Solu-Medrol, will continue Zosyn. Chest x-ray showed a left lower lobe infiltrate. Abdominal x- ray showed multiple air-fluid levels. CT abdomen showed multiple dilated small bowel loops, consistent with obstruction, pneumoperitoneum, cholelithiasis and ascites. WBCs 14.1, platelet 255, hemoglobin 8.9. NG tube in place. Family at bedside. patient transferred to SICU for close monitoring. 11/25/23--patient is currently in the ICU, required Levophed overnight due to low blood pressure, low urine output with creatinine trending up. Nephrology following. Farm Reporter also following. Patient remains n.p.o., NG tube in place, following NG tube insertion patient had total of 2 L output, J-tube was draining approximately 200 cc over last 8 hours, continues to have abdominal pain and abdominal tenderness. Patient on IV fluids. Currently on 4 L oxygen. WBCs 8.2, hemoglobin 12.3, platelet 188. Chest x-ray earlier today showed right sided port and a stable left lung airspace disease, NG tube in place. Patient currently on Zosyn, on IV Dilaudid for pain control, on IV Solu-Medrol. General surgery planning for OR today, started on TPN. 11/26/23--patient was seen and examined today. Patient is currently sedated, intubated on mechanical ventilation. Family at bedside. Patient underwent ex lap, abdominal washout, small bowel resection with new feeding jejunostomy tube placement yesterday, small bowel was noted to be perforated with significant contamination of abdominal cavity. Patient is currently on vancomycin and Zosyn. Creatinine went up to 2.85, nephrology following, recommended to continue IV fluids, avoid nephrotoxin Preserved EF on echocardiogram.. Patient currently on Levophed, vasopressin in the ICU for close monitoring. Patient is afebrile, heart rate 122, blood pressure 129/76, currently on mechanical ventilation, sedated. November 26: ICU. Intubated. FiO2 60 and a PEEP of 5. Drips include IV amiodarone. Heart rate was up early did get fired microgram of IV digoxin and 2.5 mg of IV Lopressor. Did drop her blood pressure bit. Urine output was low. Received 80 mg of IV Lasix. Ahmet to 150 cc. Other drips include IV propofol, vasopressin, Levophed. TPN was started yesterday. Antibiotics include IV Zosyn and vancomycin. Patient has a J-tube to drainage to gravity. Spoke to patient's younger daughter and at the bedside. Prognosis guarded. Continue current treatment plan. Chest x-ray shows right lower lobe consolidation. Small pleural effusion. November 27: ICU. Intubated. FiO2 55 and a PEEP of 5. Antibiotics include IV vancomycin. Drips include Levophed at a small dose, IV vasopressin, propofol, amiodarone. Patient converted to sinus rhythm this morning. Getting TPN and normal saline at 75 cc an hour. Urine output about 25 cc an hour. RAYA drain put out about 260 cc last 12 hours that is last weight shifter. NG tube with bilious output. And also GI J-tube output to gravity. Spoke to patient's and daughter at the bedside. They understand patient still not out of the kee. Platelets have dropped-therefore probably Zosyn stopped. November 28: ICU. Intubated. FiO2 55 and a PEEP of 5. Patient is in sinus rhythm. Seen this morning. Due for dialysis catheter this afternoon. Urine output about 15 to 20 cc an hour. Patient is on IV Lasix 80 mg every 12. Saline is KVO. Drips include IV propofol vasopressin. Patient having s ignificant output through the RAYA drain and the jejunostomy tube to drainage. Creatinine had been getting worse. Patient's at the bedside. Understands patient's remains critically ill. Hemoglobin is down to 7. Given that patient's pain hypotensive, and on vasopressin we will give a unit of blood with dialysis. Getting TPN antibiotic changed to IV meropenem November 29: ICU. Intubated. FiO2 55 and a PEEP of 5. Remains in sinus rhythm. Getting TPN. Dialyzed yesterday and this morning. About 1000 cc removed. Urine output about 50 cc an hour. Patient is on IV propofol. Off vas opressin. Still having significant output through the RAYA drain and jejunostomy tube. Patient received a second unit of blood yesterday. Patient's and daughter at the bedside. I did discuss guarded prognosis. Did asked them to revisit CODE STATUS.. Getting IV meropenem. November 30: ICU. Intubated. Did get a sedation holiday t today. Back on propofol. Getting TPN. Still getting IV Lasix. Fair urine output. Jejunostomy tube in last 8 hours was about 30 cc output. RAYA drain in the 8 hours had about 180 cc output. Telemetry shows sinus rhythm. NG tube has low intermittent suction with negative output. On the vent with FiO2 40 and a PEEP of 5. No hemodialysis today. Discussed with the and eldest daughter at the bedside. IV meropenem-patient's sputum had grown Citrobacter freundii and Pseudomonas aeruginosa. December 01: ICU. Intubated. Jejunostomy tube to gravity. Only 10 cc output in last 24 hours. RAYA drain. About 190 cc last 6 hours. Nasogastric tube to low intermittent suction. Minimal output. Patient is on a small dose of propofol 5 mics. Telemetry shows sinus rhythm. Patient started on small dose of Cleviprex this morning. Blood pressure. Getting TPN. FiO2 35 and PEEP of 5. Discussed with the at the bedside. Hemodialysis today December 02: ICU. Patient remains intubated. FiO2 35 PEEP of 5. Patient is on IV propofol. IV Cleviprex was discontinued yesterday. Also remains on TPN. Telemetry shows sinus rhythm. NG tube is good no output. Still significant output through the RAYA drain. Jejunostomy tube has minimal output. Patient had hemodialysis today 2 L of fluid was removed. Oral half liters yesterday. Patient getting a sedation holiday. General Surgery started the patient on trickle feeding at 10 cc an hour. I did speak to patient's at the bedside. Prognosis remains guarded but there is some improvement. December 03: ICU. Intubated. FiO2 35 PEEP of 5. Drips include IV propofol and Precedex. Getting TPN. Telemetry shows sinus rhythm. Remains on IV Lasix 80 mg twice a day. IV meropenem. Because patient gets easily agitated when transitioning off propofol he has been switched over to Precedex. For hemodialysis today. December 04: ICU. Intubated. FiO2 35 and a PEEP of 5. Patient been taken off propofol is on Precedex. Telemetry sinus rhythm. J-tube with minimal output. RAYA drain with decreased output. NG tube to suction minimal output. Family wanted to hold off trickle feeding until cleared by oncology. Which he did today. Trickle feeding will be started today. Spoke to patient's and one of the daughters at the bedside. Dr. Russ is spoken to the earlier this point they want to do further tracheostomy tube. December 05: ICU. Intubated. FiO2 35 PEEP of 5. Patient remains on Precedex and PPN. Patient's dialysis catheter was not functioning is getting another [address] Bobby this afternoon. Remains on IV meropenem. Has a RAYA drain in the jejunostomy tube to gravity. NG tube to low intermittent suction. No family at the bedside. December 06: ICU. Intubated. FiO2 35 PEEP of 5. RAYA drain putting out about approximately 120 cc per shift. Patient on IV Precedex. FiO2 35 PEEP of 5. Telemetry-sinus rhythm. Patient occasionally been put on small dose of Levophed specially for hemodialysis getting it today. Also started on midodrine for low blood pressure. Tolerating tube feeding at 10 cc an hour. Also had a bowel movement. Mentation has not improved. Even with sedation holiday. Neurology consulted. CT brain shows no acute process. December 07: ICU. Intubated. FiO2 35 PEEP of 5. Telemetry-sinus rhythm. NG tube to suction low intermittent minimal output. Getting TPN. Tube feeding at 20 cc an hour. RAYA drain averaging over 100 cc per shift. Remains on Precedex. EEG was done today. Discussed with at the bedside. Family is currently not inclined for tracheostomy tube today. Day 13 of being intubated December 08: ICU. Intubated. FiO2 35 PEEP of 5. Patient is put on back on propofol per intelligence director Dr. JIMENEZ. EEG did show some potential for spikes was put on Keppra by neurology. Telemetry shows sinus rhythm. NG tube to suction with no output. Tube feeding was put on hold because of questionable discharge on the site. Being restarted today. RAYA drain is 150 cc last 12-hour shift. Patient does open eyes. Family has decided to proceed with tracheostomy and surgery has been consulted for the same. Spoke to the at the bedside. For hemodialysis today. December 09: ICU. Intubated FiO2 35 PEEP of 5. Patient seen this morning. Pending tracheostomy placement this afternoon. Remains NPO. G-tube feeding was held overnight. RAYA drain putting out about 100 cc per shift. Received a unit of blood for hemoglobin of 6.6. On 25 mics of propofol. Getting TPN and meropenem. Spoke to the at the bedside. Patient became hypotensive with dialysis yesterday. Levophed had to be given. Only 800 cc were removed yesterday. No hemodialysis today. December 10: ICU . FiO2 35, PEEP 5. Tracheostomy was done yesterday by Dr. Ewing. G-tube feeding was started today at 10 cc an hour. Dietitian following. RAYA drain 12-hour shift overnight put out about 30 cc. Patient hemodialysis today about 1 L removed. Patient has a sacral stage II decub with a dressing. On propofol 20 mics. Spoke to at the bedside. TPN. Meropenem was discontinued yesterday. December 11: ICU. FiO2 35 PEEP of 5. Tracheostomy. NG tube was discontinued. No hemodialysis today. Telemetry shows sinus rhythm. J-tube feeding at 40 cc an hour. TPN was discontinued. Patient has been off propofol also. PICC line in place. Patient had a EEG done today. Spoke to patient's elder daughter at the bedside. May open eyes occasionally. Not really following commands December 12: 73-year-old white male with history of chronic abdominal pain for the last 8 months has been treated with Protonix 40 mg daily for the last 3 months with no improvement. Patient had a 22 pound weight loss in the last [address] of the abdomen and pelvis 3 weeks ago showed thickening of the antral wall with pat hological adenopathy posterior to the stomach suspicious of neoplasm. Today the patient underwent elective upper endoscopy to evaluate further, patient received IV sedation by anesthesia endoscope was inserted into the mouth, esophagus was intubated without any difficulty there was evidence of large amount of liquid and solid food noted in the stomach suggestive of gastric outlet obstruction. Scope could not be advanced through the pylorus, however in the prepyloric area there was a large superficial ulceration identified with multiple biopsies were done from this area. The body cardia and fundus could not adequately visualize because of large amount of retained food in the stomach. Scope was withdrawn back to the stomach and upon careful examination the mucosa of the antrum body and cardia as well as the fundus appeared normal. Procedure was being performed and biopsies were done patient threw up and subsequently became hypoxic there was clearly evidence of witnessed aspiration anesthesia intubated the patient, procedure was terminated, and the patient was transferred to the ICU, this consult was initiated. Patient is now on assist-control rate of 20 tidal volume 500 FiO2 70% PEEP of 10 ABG is pending, earlier ABG showed profound hypoxia patient is on propofol at 50 mcg/kg/min, next ABG is pending. Chest x-ray showed chronic changes without evidence of acute pulmonary disease. 12/14/2023 Patient remains in the ICU, generally weak Patient s/p tracheostomy G-tube in place Patient still has fever and mild tachycardia but tachycardia is improving, leukocytosis improving as well. Hemoglobin 8.1. Creatinine 3.0 and nephrology team on the case. He has mild transaminitis. He was getting Zosyn which is held now, nowCalcitonin is pending 12/14 Patient shon in the ICU, he is still encephalopathic and does not follow command. Neurology service following closely. He is status post tracheostomy. Also J-tube His abdomen looks soft and on exam he has mild coarse secretions. Has a Abarca catheter with clear urine His pro- Calcitonin is still high but trending down 3.0 down to 1.9 No fever this morning WBC slightly less at 16.3 Patient currently off antibiotic He is getting steroids IV Solu-Medrol which might contribute to his leukocytosis. Also he is on IV Keppra by neurologist 12/14 Patient remains confused in the ICU calm, he had a good night per family member and staff. Tracheostomy in place Patient has occasional coughing spells, patient also developed some partial wound dehiscence in his abdomen, surgery team are aware and are going to evaluate the patient Patient also has positive blood culture from 12/13: Gram-positive cocci in clusters. Patient received one-time dose of IV vancomycin. Patient also had fever 2 days ago, leukocytosis and total elevated pro- Calcitonin. Therefore we are going to consult infectious disease team. As his antibiotic Zosyn was stopped few days ago. Currently patient KVO He has good urine output December 16: ICU. Trach. Congested. Requiring suctioning. No hemodialysis today. Getting G-tube feeding at 50 cc an hour. FiO2 30 and a PEEP of 5. On IV Precedex. Eyes open. Does follow commands. Weakness in the limbs. Spoke to at the bedside. Sputum positive for Klebsiella oxytoca and Pseudomonas aeruginosa. December 17: ICU. On trach. Currently cough with increased secretions requiring suctioning. Adding scopolamine patch. Very much clear secretion. CT scan is showing right upper lobe lung abscess. G-tube feeding at 50 cc an hour. Hemodialysis today. RAYA drain putting out about 140 cc a shift. Serous. Has been midline incision wound dehiscence. Wound VAC was placed on it. Stage II ulcer. Patient is on Precedex drip 0.15 mics. Urine output is good about 6200 cc an hour. Spoke to the at the bedside. Patient currently not stable for transfer to LTAC. No limb movements. PT OT on the case. otherwise awake does follow simple commands by face December 18: ICU. Patient seen this afternoon. Because of pain getting IV Dilaudid. No nasal cannula on room air. Does move about his head. Telemetry shows sinus rhythm. FiO2 30 and a PEEP of 5. Patient started on scopolamine patch yesterday has decreased secretions today. Good urine output. Tube feeding at 60 cc an hour. Wound VAC on incisional would be high since in place. RAYA drain continues to make output. No hemodialysis today December 19: ICU. Patient was seen earlier today. FiO2 30 and a PEEP of 5. Sinus rhythm. Awake. Does follow with eyes. Tube feeding got obstructed tube feedings held for now. Increasing oozing from the incision drainage site. at the bedside. Wound VAC remains in place. Good urine output. Dialysis held today. December 20: ICU. Per nephrology no dialysis today. 1 L fluid bolus given. J- tube was replaced over the wire by Dr. Ewing from surgery. On Precedex 0.6 mcg. FiO2 30 and a PEEP of 5 on the vent. RAYA drain putting out of around 100 cc per shift. at the bedside. Drainage through the abdominal incision wound. CT scan abdomen showed tube placement in the small bowel. Stable large right lower quadrant mass with a fluid level. December 21: ICU. No dialysis today. Patient started on trickle feeding through the J-tube yesterday. He started leaking around the J-tube site. Tube feeding was held. Dressings were placed. Wound VAC remains on the incision. Still having output through the RAYA drain. Patient remains on Precedex 0.4 mcg. FiO2 30 and a PEEP of 5. Sinus rhythm. at the bedside. December 22: ICU. Patient was seen this morning today by me. No dialysis today. Patient's and daughter at the bedside. FiO2 30 and a PEEP of 5. Sinus rhythm. Still having significant secretions through the tracheostomy tube. On Precedex 0.4 mcg. Getting D5W IV fluids. Tube feeding remains to be on hold since yesterday. Still output of RAYA drain. Awaiting input from surgery. Discussed with the and daughter. December 23: ICU. Saw the patient this afternoon. Because of good output of urine dialysis has been discontinued. Telemetry shows sinus rhythm. FiO2 30 and a PEEP of 5. RAYA output has been around 8200 cc an hour. Good urine output. Patient does have very slight movement of the limbs. Wound VAC is putting out about 20 cc per shift. Yesterday when trickle feeding was started patient's J- tube drainage also started leaking around the insertion site. Tube feeding was held. Patient remains on IV Zosyn and Precedex at 0.3 mcg. I had a very lengthy discussion with patient's daughter and at the bedside overall guarded prognosis. Later surgery spoke to the family, and then the nurse called me that family was wanting transferred to [facility]. I spoke to Dr. Irby. They felt they could not offer anything more at this point. I did call the [facility] transfer steaming cabinet tender. Gave them the reason for transfer. Later in the ICU nurse informed me through [employer] that [facility] had declined the transfer. Total time spent today about 50 minutes with over 30 minutes of discussion. December 24: ICU. Patient is doing not too well. Sinus rhythm. Drips include norepinephrine and IV propofol. Surgery did put 2 stitches around the J-tube insertion site. Started on TPN today. FiO2 30 PEEP of 5. Patient became hypothermic put on a Manjit hugger. Also hypoglycemic. Decreased urine output. IV fluids increased. Patient's son was at the bedside. I did speak to patient's eldest daughter outside in the waiting room. Did tell the patient doing very poorly. I did try to call the on the phone number she has gone home. Started an IV antifungal today. December 26, 2023 73-year-old white male with history of chronic abdominal pain for the last 8 months has been treated with Protonix 40 mg daily for the last 3 months with no improvement. Patient had a 22 pound weight loss in the last [address] of the abdomen and pelvis 3 weeks ago showed thickening of the antral wall with pathological adenopathy posterior to the stomach suspicious of neoplasm. Today the patient underwent elective upper endoscopy to evaluate further, patient received IV sedation by anesthesia endoscope was inserted into the mouth, esophagus was intubated without any difficulty there was evidence of large amount of liquid and solid food noted in the stomach suggestive of gastric outlet obstruction. Scope could not be advanced through the pylorus, however in the prepyloric area there was a large superficial ulceration identified with multiple biopsies were done from this area. The body cardia and fundus could not adequately visualize because of large amount of retained food in the stomach. Scope was withdrawn back to the stomach and upon careful examination the mucosa of the antrum body and cardia as well as the fundus appeared normal. Procedure was being performed and biopsies were done patient threw up and subsequently became hypoxic there was clearly evidence of witnessed aspiration anesthesia intubated the patient, procedure was terminated, and the patient was transferred to the ICU, this consult was initiated. Patient is now on assist-control rate of 20 tidal volume 500 FiO2 70% PEEP of 10 ABG is pending, earlier ABG showed profound hypoxia patient is on propofol at 50 mcg/kg/min, next ABG is pending. Chest x-ray showed chronic changes without evidence of acute pulmonary disease. 12/27/2023 Patient is seen and evaluated with family at bedside; remains in the ICU intubated and mechanically ventilated. - ABG showed a pO2 of 99 pCO2 31 pH of 7.44. -- Remains on Eraxis daptomycin and Zosyn patient is intermittently requiring Dilaudid, Ativan does not seem to help his agitation and restlessness. -- Continues to have leakage around the jejunostomy tube, and patient is undergoing the J-tube exchange today. Family is at bedside, seems to be quite anxious about his overall condition, and I explained to the that we are doing the best we can considering his critical illness situation and critical illness polyneuropathy. Patient is profoundly weak, and weaning the patient from mechanical ventilation is almost impossible. At least not at this point yet WBC count is 10.9 hemoglobin is 8.1 basic metabolic profile is normal BUN is 46 creatinine 1.90 patient has been off hemodialysis since the . Chest x- ray continues to show stable findings with right upper lobe opacity and right lower lobe opacity and possibly a small right-sided pleural effusion ----Continue ventilatory support, now on IMV mode rate of 16 with pressure support of 14 Continue Precedex and use Dilaudid 0.5 mg every 2-3 hours as needed. Nutritional support patient is now on TPN, Possible J-tube changed today for J-tube malfunction Continue antibiotics including daptomycin and Zosyn, Eraxis was added by infectious disease 12/28/2023 the patient is seen and evaluated in room at bedside; continues to be afebrile, the patient is on the ventilator through the trach FiO2 is currently stable at 30% no significant pleural effusion clinically patient on requiring any pressor support still having drainage around his jejunostomy tube patient dialysis catheter has been discontinued. Patient white count normalized to 7.6, creatinine is 1.51 patient with pneumonia with a sputum showing Citrobacter and Pseudomonas aeruginosa, the patient sputum repeat is still growing Citrobacter and Pseudom onas sensitive to the Pseudomonas is pending continue with Zosyn -patient did have a positive blood culture with staph epi that was oxacillin resistant as the patient did have a PICC line and the dialysis catheter he is on daptomycin repeat blood culture currently growing oxacillin sensitive staph epi, the patient dialysis catheter has been discontinued Has been sent for the culture -patient also have significant excoriation around his jejunostomy tube site which is still leaking Eraxis was added which will be continued as the patient fever pattern has improved and the patient white count has normalized once again discussed with the nursing staff to apply Triad cream which was discussed yest akhil but not applied and monitor clinical course closely 12/29/2023 Patient is seen and evaluated with family members at bedside; remains intubated and mechanically ventilated -- ABG showed a pO2 of 105 pCO2 31 pH of 7.45. Remains on Precedex; multiple antibiotics and antifungal including Eraxis daptomycin and Zosyn. -- chest x-ray is showing improvement in his right upper lobe airspace disease/pulmonary abscess. Right lower lobe seems about the same with chronic opacity and possibly some small right-sided pleural effusion. --Family is at bedside, patient is arousable but does not follow any instructions. Gets extremely restless and agitated easily hence patient is receiving Dilaudid which seems to be working much better for this patient than benzodiazepines --possibly transfer the patient to a select care specialty. 12/30/2023 Evaluated in follow-up in the intensive care unit. He remains on the mechanical ventilator. Status post tracheostomy. There has been a decrease in the amount of leakage around the J-tube site he continues on a gravity flow. TPN is infusing tube feedings remain on hold at this time. No bowel movement reported for the last 5 days. X-ray today reveals extensive pleural parenchymal opacities throughout the right with at least a moderate pleural effusion. Mild patchy densities left mid and lower lung are also similar. Blood work reveals a white blood cell count 11.5, hemoglobin 8.1, platelet count of 78, sodium 142, potassium 4.2, BUN of 42, creatinine of 1.22, Phos of 2.3, magnesium 1.9. Patient continues on IV anidulafungin IV Zerbaxa IV daptomycin. Patient is currently sedated with propofol and also Precedex which is currently on hold at this time. December 31, 2023: ICU. Patient continues to do poorly. On propofol 35 mics. Also getting IV Dilaudid and IV Ativan.. Telemetry shows sinus rhythm. J-tube feeding has been discontinued. Significant output through the Abarca bag and around the G-tube site. Patient also putting out through the RAYA drain on the right side. Getting TPN and lipids. Patient is antimicrobial include iv aniedulefungin, IV ceftolozane/tazobactam, IV daptomycin Advance care planning [October 31, 2023] I met with patient's at the bedside. Went through in detail with patient is overall very poor clinical status. Chances of any meaningful recovery next to minimal. I also did mention that patient in my opinion was not stable to go to chronic ventilator setting. I suggested comfort care/hospice. I did not feel and why all honesty that patient is benefiting any further from the treatment we are giving him in fact causing probably more suffering. I also spoke to patient's daughter outside in the waiting room. Total time spent about 50 minutes with over 30 minutes of discussion. Later I called Dr. Luther JIMENEZ the intelligence director after he received a text that family was expressing that some physician expressed he was doing better and giving hope. I spoke to nurse Lemos in the evening and she and Dr. JIMENEZ did go and talk to patient's family at the bedside later. January 01, 2024: ICU. FiO2 30 and a PEEP of 5. Continues to have increased drainage at the G-tube site. Wound VAC in place over the incision. RAYA drain continues to put out excretions. Good urine output. Drips include IV propofol at 20 mics, also getting IV Ativan and Dilaudid. Patient also keeping getting TPN lipids. Spoke to the patient's at the bedside. No further questions. I did speak to Dr. Irby from general surgery. Hence it is both our impression again that changing the tube will not make any difference to the bigger picture. And probably futile. Dr. Irby will be speaking to the family today. David from social work manager did ask about of family meeting. I did reiterate that I spoken at length to the a few times and also the daughter. Dr. Jimenez also spoke to the and Dr. Irby will be speaking with the today. Prognosis remains to be very poor. I did tell the in my opinion probably the patient is not r a candidate for long-term facility. Will intelligence director Dr. Jimenez determine if the patient is a candidate for long-term chronic ventilator facility. January 02, 2024: ICU. FiO2 30 PEEP of 5. Telemetry sinus rhythm. Atilio inc lude propofol at 20 mics. Patient getting TPN lipids. Receiving 1 unit of packed red blood cell. Patient was having a breakdown around the tracheostomy stoma site. With a cuff leak. G-tube site is continues to have increasing output. Wound VAC in place. RAYA drains also having increasing output. Patient sister and daughter from [place] from out of town. Earlier they spoke at length with Dr. alford from general surgery. Prognosis remains poor. January 03, 2024: ICU. FiO2 30 PEEP of 5. On propofol. 50 mics. Getting TPN lipids. Sinus rhythm. Wound VAC in place. Drainage around the j-tube site. RAYA drain continues to drain. Patient somewhat sedated. at the bedside. Later social work manager David inform me that the surgical team Dr. Irby has suggested possible you have [facility], to which family is trying to obtain transferred to. Per Dr. Jimenez note patient has been decline by long-term care twice. Prognosis remains poor. at the bedside. Had no questions. Brother Nathan is present. January 04, 2024: ICU. FiO2 30 PEEP of 5. Propofol was held this morning. Getting TPN lipids. Sinus rhythm. Wound VAC remains in place. Continues to have drainage around the J-tube. RAYA drain continues to have output. at the bedside. She had no questions. Antibiotics in place. January 05, 2024: ICU. FiO2 30 PEEP of 5. Audibly sounding congested. Getting TPN lipids. Sinus rhythm. Wound VAC in place. Drainage around J-tube site. RAYA output continues. No family at bedside. Getting antibiotics. Lethargic January 06, 2024: ICU. FiO2 30 PEEP of 5. Patient is been off propofol since yesterday. Does move his head about. Try to open his eyes sometimes. Sinus rhythm. Blood pressure is running high yesterday. Started on Cleviprex. Hydralazine is being added. Continue to get TPN lipids. J-tube site remains excoriated. Wound VAC in place. RAYA output about 40 to 50 cc is a 12-hour shift. Patient elder daughter at the bedside. Eraxis was discontinued on January 02. Daptomycin is being discontinued by ID. Continue ceftolo'szone. CT abdomen pelvis done today: 3.1 cm organized fluid collection within the rectovesicular space concerning for abscess. No change in right upper lung 4.9 cm fluid collection with a fluid level. For possible pulmonary abscess. Moderate size right lung base multiloculated hydropneumothorax possibly abscess. Additional areas of air bronchograms. January 07, 2024: ICU. FiO2 30 PEEP of 5. Patient was taken down for pigtail drainage of the right lung abscess. About 200 cc of pus was obtained. Nurse informed me when they told him about for the procedure a lot of pus gushed out from the tracheostomy site. Dr. Love at the bedside did a bronchoscopy. Some pus was aspirated. No obvious fistula was noted. Patient is being back on Cleviprex drip. TPN lipids. January 08, 2024: ICU. Patient was having severe bouts of coughing. Unable to maintain ventilation. Patient was put on Nimbex drip and propofol drip. TPN lipids continue. Has a right chest wall pigtail catheter 90 cc output in 12- hour shift. Drainage from around the J-tube site. RAYA drain continues Ahmet to have an output. Abdominal wound is high since with the wound VAC in place. Patient sedated. January 09, 2024: ICU. Patient is off propofol and Cleviprex. Does open eyes. RAYA drain. About 40 cc last 24 hours. J-tube site continues to have increased output. Requiring dressing change every so often. Wound VAC in place. Patient getting Dilaudid and Ativan. Telemetry shows sinus rhythm. 40 cc out of the pi gtail drainage. Patient started on ciprofloxacin and tobramycin. Remains on TPN and lipids. Patient's eldest daughter and at the bedside. No new questions. January 10, 2024: ICU. Overnight patient had become asynchronous. Had to be put on Precedex drip. Hemoglobin dropped down to 6.6. Monitor blood ordered. RAYA output about 100 cc last 24 hours. Wound VAC remains in place. TPN lipid continues. Patient also has a leak in the right pigtail catheter. Sinus rhythm. Continues to have increased secretion at the G-tube site. Ventilator FiO2 30 and a PEEP of 5. at the bedside. Had no further questions. January 11, 2024: ICU. Patient remains on IV Precedex. TPN.'s RAYA output over 30 cc last 24 hours. Wound VAC remains in place. Sinus rhythm. FiO2 30 PEEP of 5. Pigtail with very little output. Spoke to Dr. Love who only spoke to the patient's at length. Gnosis poor. When I walked in patient's 2 daughters and the present. is very tearful crying hugging the patient. The daughter had no further questions January 12, 2024 Ahmet: ICU. Continues on IV Precedex. Getting TPN lipids. Wound VAC in place. Sensitive. FiO2 30 and a PEEP of 5. Patient's at the bedside. Had no questions. January 13, 2024: ICU. FiO2 30 PEEP of 5. Remains on Precedex 0.8 mg. Eyes open. Sometimes does track with head. Not moving limbs. Some decrease in output from the G-tube site. Wound VAC putting out about 100 cc every 12 hours. RAYA drain about 100 cc every [address] Russ met with the family earlier today. Patient's been made DNR. Telemetry sinus rhythm. Patient's and daughter at bedside. They have no questions January 14, 2024: ICU. FiO2 30. PEEP of 5. Patient is has eyes open and tracking. Urine output about 100 cc an hour. NG site output looks like gastric contents. RAYA site about 50 cc in the last 12 hours. Telemetry sinus rhythm. and daughter have asked for hospice consultation for informational visit. They want to use [facility]. I sat with them and the nurse and a full expression of the hospice involved involved. Several questions answered. Daughter does express that she would like to take the patient home. The other sibling will be coming on from [place] on Saturday. They want to hold on at least until then. January 15, 2024: ICU. FiO2 30 and a PEEP of 5. Getting CPAP today. Asynchronous better. J-tube site continues to have increase secretions. Sinus rhythm. Awake. Does move his head possibly to command. Remains on Precedex. Getting Dilaudid. Fair urine output. Has a air leak in the pigtail. Minimal output through the chest tube. RAYA drain continues to have an output. at the bedside. January 16, 2024: ICU. On the ventilator FiO2 30 and a PEEP of 5. Pressure support mode. Wound VAC remains in place. J-tube site continues to have output. RAYA drain putting out output. Remains on pressors Precedex and getting Dilaudid. Antibiotics per ID. Patient being planned to go home tomorrow with home hospice. at the bedside. Had no further questions. Being followed by social work manager David and home hospice team from [facility] -Hospice arranging for transport with portable ventilator, to home with family -Antibiotics as discussed with ID will be discontinued -Wound VAC to be removed prior to discharge per surgery -RAYA drain to remain in place with dressing changes at the J-tube site. Dressing changes at the incision site per surgery. -TPN lipids will be discontinued prior to discharge -Patient to be taken off Precedex by r intelligence director January 17, 2024: ICU: Patient was seen and examined today, family at bedside, initially plan was patient to go home with hospice today however patient and family/ change their mind, and wanted to continue current treatment. Patient is currently on pressure control mode of mechanical ventilation unchanged as compared to yester day, remains on Precedex 1.4 mcg/kg/h, remains on TPN, unable to use his J-tube. Patient intermittently requiring Dilaudid. Currently on antibiotics Cipro and fluconazole, infectious disease added tobramycin today. ICU following. Infectious disease following. Nephrology following. General surgery on board and following. 01/17 pt remain in the icu, family at bed side, he is on mechanical ventilation still, with pulmonary critical care team help in the vent management he is also getting TPN , on broad spectrum antibiotic with tobramycin , fluconazole, and cipro , sputum culture growing pseudomonas Objective - Vital Signs Vital signs: Vital Signs Temp 97.8 F 01/18/24 08:00 Pulse 92 01/18/24 11:00 Resp 18 01/18/24 11:00 BP 126/85 01/18/24 11:00 Pulse Ox 97 01/18/24 11:00 FiO2 30 01/18/24 11:02 Intake & Output 01/17/24 01/18/24 01/18/24 18:59 06:59 18:59 Intake Total 2241.360 2202.656 880.520 Output Total 1820 1825 625 Balance 421.360 377.656 255.520 Weight 100.7 kg Intake: IV 1850 1915 694 0.9 Normal Saline @ KVO 60 125 60 Ciprofloxacin/Dextrose 200 400 Pmx 400 mg In Dextrose/ Water 1 200ml.bag @ 200 mls/hr IVPB Q8H [facility] Rx#: [id number] Fat Emulsion 20% 250 ml 84 In Empty Bag 1 bag @ 21 mls/hr IV TuThSa@0900 [facility] Rx#:[id number] Fluconazole in NaCl,Iso- 100 100 Osm 200 mg In Saline 1 100ml.bag @ 100 mls/hr IVPB DAILY [facility] Rx#: [id number] Magnesium Sulfate-D5w Pmx 100 1 gm In Dextrose/Water 1 100ml.bag @ 100 mls/hr IVPB ONCE ONE Rx#: [id number] Magnesium Sulfate-D5w Pmx 100 1 gm In Dextrose/Water 1 100ml.bag @ 100 mls/hr IVPB Q1H [facility] Rx#: [id number] Potassium Chloride 10 meq 100 In Water For Injection 1 100ml.bag @ 100 mls/hr IVPB Q1H [facility] Rx#: [id number] Potassium Chloride 20 meq 100 400 In Water For Injection 1 100ml.bag @ 50 mls/hr IVPB Q2H [facility] Rx#: [id number] TPN 990 990 450 Tobramycin Sulfate 600 mg 100 In Sodium Chloride 0.9% 100 ml @ 115 mls/hr IVPB Q48H [facility] Rx#:[id number] Intake, IV Titration 391.360 287.656 186.520 Amount Dexmedetomidine/0.9% NaCl 391.360 287.656 165.520 (Pmx) 400 mcg In Empty Bag 1 bag @ 0.2 MCG/KG/HR 5.2 mls/hr IV .[id number] [facility] Rx#:[id number] Fat Emulsion 20% 250 ml 21 In Empty Bag 1 bag @ 21 mls/hr IV TuThSa@0900 [facility] Rx#:[id number] Output: Chest Tube Drainage 100 10 10 Chest Tube Right 100 10 10 Drainage 20 35 0 Medial Abdomen 0 0 Right Abdomen 20 35 Urine 1700 1780 615 Other: Voiding Method Indwelling Catheter Indwelling Catheter Indwelling Catheter ABP, PAP, CO, CI - Last Documented Arterial Blood Pressure 173/76 - Exam -GENERAL: The patient is on mechican ventilation HEENT: Pupils are round and equally reacting to light. EOMI. No scleral icterus. No conjunctival pallor. Normocephalic, atraumatic. No pharyngeal erythema. No thyromegaly. CARDIOVASCULAR: S1 and S2 present. No murmurs, rubs, or gallops. - PULMONARY: Chest is clear to auscultation, no wheezing , no crackles. Status post tracheostomy tube - ABDOMEN: Soft, nontender, nondistended, normoactive bowel sounds. No palpable organomegaly. S/p J-tube in place MUSCULOSKELETAL: No joint swelling or deformity. EXTREMITIES: No cyanosis, clubbing, or pedal edema. NEUROLOGICAL: Gross neurological examination did not reveal any focal deficits. SKIN: No rashes. no petechiae. - Labs CBC & Chem 7: 01/18/24 08:20 01/18/24 08:20 Labs: Abnormal Lab Results - Last 24 Hours (Table) 01/17/24 01/17/24 01/18/24 Range/Units 18:02 23:14 05:42 WBC (3.8-10.6) k/uL RBC (4.30-5.90) m/uL Hgb (13.0-17.5) gm/dL Hct (39.0-53.0) % RDW (11.5-15.5) % Neutrophils # (1.3-7.7) k/uL Sodium (137-145) mmol/L BUN (9-20) mg/dL Glucose (74-99) mg/dL POC Glucose (mg/dL) 177 H 158 H 187 H (70-110) mg/dL Calcium (8.4-10.2) mg/dL Alkaline Phosphatase (38-126) U/L Total Protein (6.3-8.2) g/dL Albumin (3.5-5.0) g/dL 01/18/24 01/18/24 01/18/24 Range/Units 08:20 08:20 11:25 WBC 15.8 H (3.8-10.6) k/uL RBC 2.52 L (4.30-5.90) m/uL Hgb 7.4 L (13.0-17.5) gm/dL Hct 23.2 L (39.0-53.0) % RDW 17.2 H (11.5-15.5) % Neutrophils # 11.5 H (1.3-7.7) k/uL Sodium 130 L (137-145) mmol/L BUN 32 H (9-20) mg/dL Glucose 194 H (74-99) mg/dL POC Glucose (mg/dL) 175 H (70-110) mg/dL Calcium 7.1 L (8.4-10.2) mg/dL Alkaline Phosphatase 194 H (38-126) U/L Total Protein 6.0 L (6.3-8.2) g/dL Albumin 2.1 L (3.5-5.0) g/dL Assessment and Plan Assessment: -Aspiration and gram-negative bacterial pneumonia a bilateral initially from retained gastric contents mostly food and liquids, causing acute hypoxic respiratory failure: On presentation: Subsequent bacterial pneumonia sputum culture November 25: Citrobacter freundii, Pseudomonas aeruginosa. December 13: Klebsiella oxytoca, Pseudomonas aeruginosa IV meropenem-, IV Zosyn.IV ceftolozane/tazobactam, IV daptomycin, tobramycin- all discontinued Currently getting IV ciprofloxacin. , ceftolozane-tazobactam. -Patient became asynchronous with the ventilator. On Precedex drip -Breakdown of tracheostomy stoma site. Dressing in place Being followed by intelligence director -Sepsis with septicemia from above Patient received multiple antibiotics -Right l lung abscess, pigtail catheter placed January 07, 2024. Initially about 200 cc of pus obtained. During the procedure large amount of pus poured out of the tracheostomy site when patient was rolled on the left side. Status post bronchoscopy with some lavage on 01/07/2024 - lung abscess larger 1 on the right side-patient cultures are growing Pseudomonas and Klebsiella oxytoca: Slow to respond , Received other antibiotics. Currently on Floxin, Diflucan and tobramycin. -Acute pulmonary edema and fluid overload from hypoalbuminemic state and fluids from IV.:: Has been getting Lasix and dialysis: Both held -Altered mentation. Possibly encephalopathy. Could be delirium.: Proving CT brain [December 06] nothing acute Neurology following EEG-evidence of generalized cerebral dysfunction and sporadic intermittent higher amplitude sharply contoured waves mainly bifrontal. Showing cortical irritability. Keppra was started on December 07 -Critical care poly- Pedro neuropathy: Slow to respond PT OT -Gallstones, asymptomatic -Small l bowel perforation at site of jejunostomy tube tip with balloon..: Portion of small bowel resected. On November 24. New J-tube was placed.- drainage to gravity:-Now discontinued December 19: J-tube blocked. J-tube replaced on December 20 over wire December 21: Leaking around the J-tube site. Feeding held December 23: J feeding was started yesterday evening but again started leaking increasingly around the J-tube site-feeding held again December 24: J-tube feeding has been held. Patient is currently having increased drainage from the J-tube site -Acute kidney injury. Possible ATN from hypotensive shock: Resolved Renal ultrasound unremarkable. Started on renal replacement therapy on November 28. Last hemodialysis on December 17. Being followed by an nephrology. Good urine output. -Nutrition Jejunostomy tube placed November [address] Ewing Received TPN-this was discontinued. TPN lipids restarted on December 24 -Lung abscess, not improving Antibiotics to continue. Pulmonary and ID following On ciprofloxacin, Diflucan and tobramycin. -Midline abdominal incision wound dehiscence Wound VAC placed -Acute recurrent atrial fibrillation-converted to sinus rhythm Received IV amiodarone. Cardiology following Lopressor -Acute hypoxic respiratory failure from aspiration pneumonia, status post ventilator assisted: Reintubated November 25. FiO2 35 PEEP of 5 Tracheostomy tube-by Dr. Zepeda on December 09 -Septic shock, recovered -Hypertension, recurrent Had received Cleviprex. Hydralazine added -Intermittent hypotension: Corrected Intermittent use of Levophed. 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 Also anemia of blood draw. Iron deficiency anemia Received total of 6 units of blood IV iron. -Severe thrombocytopenia. Would consider coagulation disorder secondary to infection., In the setting of underlying lymphoma.: Fluctuating with infection Hematology following. -Acute blood loss anemia, -Sacral stage II decub ulcer Dressing in place -Hypokalemia, multiple causes -Hypoglycemia -GERD PPI -Acute diarrhea secondary to tube feeding.: Resolved C. difficile ruled out. -Large superficial gastric antral ulceration involving the gastric antrum extending into the pylorus with gastric outlet obstruction. 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 -DNR made on January 12 On Precedex. IV ciprofloxacin and Diflucan, started on tobramycin by infectious disease.
[2024-01-18 23:48] LABS: Glucose,Whole Blood 187 mg/dL (70-110)
[2024-01-19] MEDS ORDERED: TOBRAMYCIN SULFATE IVPB SCH (02:15)
[2024-01-19] MEDS ORDERED: SODIUM CHLORIDE 0.9% IVPB SCH (02:15)
[2024-01-19] MEDS: TOBRAMYCIN SULFATE IVPB SCH (03:53)
[2024-01-19] MEDS: SODIUM CHLORIDE 0.9% IVPB SCH (03:53)
[2024-01-19 05:53] LABS: Glucose,Whole Blood 181 mg/dL (70-110)
[2024-01-19 06:31] LABS: ALT 24 U/L (4-49); AST 30 U/L (17-59); African American GFR (CKD) >90 (>60 ml/min/1.73 sqM); Alkaline Phosphatase 177 U/L (38-126); Anion Gap 3 mmol/L; Blood Urea Nitrogen 31 mg/dL (9-20); Calcium 7.2 mg/dL (8.4-10.2); Carbon Dioxide 20 mmol/L (22-30); Chloride 106 mmol/L (98-107); Glucose 164 mg/dL (74-99); Magnesium 1.6 mg/dL (1.6-2.3); Non-African American GFR(CKD) >90 (>60 ml/min/1.73 sqM); Phosphorus 3.3 mg/dL (2.5-4.5); Potassium 3.7 mmol/L (3.5-5.1); Sodium 129 mmol/L (137-145); Total Bilirubin 0.7 mg/dL (0.2-1.3)
[2024-01-19] MEDS ORDERED: POTASSIUM CHLORIDE 10 MEQ in WATER FOR INJECTION 1 100ML.BAG IVPB SCH (07:15)
--- NOTE | 2024-01-19 08:31 | P.PN ---
Progress Note - Text Progress Note Date: 01/19/24 HISTORY OF PRESENT ILLNESS: Patient shon in the ICU and on mechanical ventilation. Patient is more awake and alert. He is able to follow commands. He is on TPN for nutrition support. There has been decreased drainage from around the J-tube. No acute events overnight. PHYSICAL EXAM: VITAL SIGNS: Reviewed. GENERAL: frail, weak HEENT: Tracheostomy site clean dry and intact ABDOMEN: Soft. Nondistended. Midline incision with wound VAC in place and intact with granulation tissue. RAYA drain in place. RAYA tube with decrease in surrounding drainage ASSESSMENT: 1. 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 Status post J-tube placement and revision for small bowel obstruction 2. Abdominal wound dehiscence status post wound VAC placement 3. Status post tracheostomy PLAN: -licensing manager is working on transferring patient to [facility] -At this time, patients J tube site fistula is mature and it is of no harm to the patient if the J tube has been pulled back as the patient has not been getting any tube feeds. Please do not adjust J tube. This was explained to the patient's family on several occasions. Patients nutritional support will be from TPN. -Wound VAC scheduled changes. If patient cannot go to [facility] with the wound VAC can do wet-to-dry dressings on midline incision wound -Continue supportive care -Continue TPN for nutrition support Dick Ewing DO [facility] [phone]
[2024-01-19] MEDS: MAGNESIUM SULFATE-D5W PMX 1 GM in DEXTROSE/WATER 1 100ML.BAG IVPB SCH (08:57)
[2024-01-19] MEDS: SODIUM CHLORIDE 0.9% 1,000 ML IV SCH (08:57)
--- NOTE | 2024-01-19 09:04 | XR ---
EXAMINATION TYPE: XR chest 1V portable DATE OF EXAM: 01/19/2024 8:35 AM COMPARISON: None. CLINICAL INDICATION: Male, 73 years old with history of Pneumonia, TECHNIQUE: XR chest 1V portable view(s) obtained. FINDINGS: The heart size is normal. The pulmonary vasculature is normal. The lungs are clear. Mild right lower lobe infiltrate is present. Drainage catheter remains present. Tracheostomy tube is in the midline. Port is present on right with tip in right atrium. PICC line enters on the left with tip in the superior vena cava region IMPRESSION: 1. Right lower lobe infiltrate improving. Previous consolidation largely resolved. [facility], , 01/19/2024 9:02 AM
[2024-01-19] MEDS: HYDROmorphone 0.5 MG/0.5 ML SYRINGE IVP PRN (09:34)
--- NOTE | 2024-01-19 10:12 | P.PN ---
Subjective Progress Note Date: 01/19/24 Patient is seen in follow-up for acute kidney injury. Patient underwent exploratory laparotomy with small bowel obstruction NG tube replacement November 25, 2023. Nonoliguric. Started on hemodialysis November 29, 2023. Currently off of dialysis as renal function has recovered. Last dialysis on 12/18/2023. Dialysis catheter has been removed. More awake today and responsive. Vital signs stable. General: Resting in bed. HEENT: Tracheostomy noted. LUNGS: Scattered rhonchi. HEART: Regular rate and rhythm. ABDOMEN: No drainage. EXTREMITITES: 1+ edema. Objective - Vital Signs Vital signs: Vital Signs Temp 98.7 F 01/19/24 08:00 Pulse 74 01/19/24 09:00 Resp 26 H 01/19/24 09:00 BP 117/76 01/19/24 09:00 Pulse Ox 98 01/19/24 09:00 FiO2 30 01/19/24 08:40 Intake & Output 01/18/24 01/19/24 01/19/24 18:59 06:59 18:59 Intake Total 2894.063 3138.457 300 Output Total 1830 1565 375 Balance 0234.454 6167.457 -75 Weight 101 kg Intake: IV 1541 1742 200 0.9 Normal Saline @ KVO 130 120 20 Ciprofloxacin/Dextrose 400 Pmx 400 mg In Dextrose/ Water 1 200ml.bag @ 200 mls/hr IVPB Q8H [facility] Rx#: [id number] Fat Emulsion 20% 250 ml 231 42 In Empty Bag 1 bag @ 21 mls/hr IV TuThSa@0900 [facility] Rx#:[id number] Fluconazole in NaCl,Iso- 100 Osm 200 mg In Saline 1 100ml.bag @ 100 mls/hr IVPB DAILY [facility] Rx#: [id number] TPN 1080 1080 180 Tobramycin Sulfate 600 mg 100 In Sodium Chloride 0.9% 100 ml @ 115 mls/hr IVPB Q48H [facility] Rx#:[id number] Intake, IV Titration 7403.412 8552.457 100 Amount Ciprofloxacin/Dextrose 200 Pmx 400 mg In Dextrose/ Water 1 200ml.bag @ 200 mls/hr IVPB Q8H [facility] Rx#: [id number] Dexmedetomidine/0.9% NaCl 311.063 154.457 100 (Pmx) 400 mcg In Empty Bag 1 bag @ 0.2 MCG/KG/HR 5.2 mls/hr IV .[id number] [facility] Rx#:[id number] Mvi, Adult No.4 with Vit 1042 1042 K 10 ml Trace (Conc-1Ml/ Dose) 1 ml Sodium Acetate 30 meq Magnesium Sulfate gm 1 gm Calcium Gluconate 0.5 gm Potassium Phosphate 9 mmol Potassium Acetate 12 meq In Amino Acids 5 %/ Dextrose 20 % 1,000 ml @ 90 mls/hr IV .BY DURATION [facility] Rx#:[id number] Output: Chest Tube Drainage 40 Chest Tube Right 40 Drainage 0 90 0 Medial Abdomen 0 0 0 Right Upper Posterior 90 Chest Urine 1790 1475 375 Other: Voiding Method Indwelling Catheter Indwelling Catheter Indwelling Catheter ABP, PAP, CO, CI - Last Documented Arterial Blood Pressure 173/76 - Labs CBC & Chem 7: 01/18/24 08:20 01/19/24 05:38 Labs: Abnormal Lab Results - Last 24 Hours (Table) 01/18/24 01/18/24 01/18/24 Range/Units 11:25 17:31 23:46 Sodium (137-145) mmol/L Carbon Dioxide (22-30) mmol/L BUN (9-20) mg/dL Creatinine (0.66-1.25) mg/dL Glucose (74-99) mg/dL POC Glucose (mg/dL) 175 H 188 H 187 H (70-110) mg/dL Calcium (8.4-10.2) mg/dL Alkaline Phosphatase (38-126) U/L Total Protein (6.3-8.2) g/dL Albumin (3.5-5.0) g/dL 01/19/24 01/19/24 Range/Units 05:38 05:51 Sodium 129 L (137-145) mmol/L Carbon Dioxide 20 L (22-30) mmol/L BUN 31 H (9-20) mg/dL Creatinine 0.64 L (0.66-1.25) mg/dL Glucose 164 H (74-99) mg/dL POC Glucose (mg/dL) 181 H (70-110) mg/dL Calcium 7.2 L (8.4-10.2) mg/dL Alkaline Phosphatase 177 H (38-126) U/L Total Protein 6.0 L (6.3-8.2) g/dL Albumin 2.0 L (3.5-5.0) g/dL Assessment and Plan Assessment: 1. Acute kidney injury secondary to ATN secondary to septic shock. Creatinine 0.86 on admission and up to 5.38 dated November 29, 2023. nonoliguric. UA fairly benign. No hydronephrosis noted on imaging. Started hemodialysis on 11/29/2023 for worsening volume status and acute kidney injury. Renal function has improved and dialysis catheter was discontinued on 12/28/2023 2. Perforated small bowel status post exploratory laparotomy with abdominal washout, small bowel resection and J-tube replacement November 25, 2023. 3. A-fib with RVR. s/p amiodarone drip. 4. Recently diagnosed gastric B-cell lymphoma. 5. Septic shock. 6. Hypokalemia status post replacement. Potassium is elevated today at 5.3 and TPN has been adjusted. 7. Hypophosphatemia, being supplemented in TPN. 9. Hypernatremia, status post D5W and improved. Now mildly hyponatremia Plan: IV Lasix as needed Continue TPN, recommend decrease water to aid with hyponatremia
--- NOTE | 2024-01-19 10:37 | P.PN ---
Subjective Progress Note Date: 01/19/24 Principal diagnosis: Acute hypoxic respiratory failure requiring intubation mechanical ventilation secondary to aspiration. This is a 73-year-old white male with history of chronic abdominal pain for the last 8 months has been treated with Protonix 40 mg daily for the last 3 months with no improvement. Patient had a 22 pound weight loss in the last [address] of the abdomen and pelvis 3 weeks ago showed thickening of the antral wall with pathological adenopathy posterior to the stomach suspicious of neoplasm. Today the patient underwent elective upper endoscopy to evaluate further, patient received IV sedation by anesthesia endoscope was inserted into the mouth, esop hagus was intubated without any difficulty there was evidence of large amount of liquid and solid food noted in the stomach suggestive of gastric outlet obstruction. Scope could not be advanced through the pylorus, however in the prepyloric area there was a large superficial ulceration identified with multiple biopsies were done from this area. The body cardia and fundus could not adequately visualize because of large amount of retained food in the stomach. Scope was withdrawn back to the stomach and upon careful examination the mucosa of the antrum body and cardia as well as the fundus appeared normal. Procedure was being performed and biopsies were done patient threw up and subsequently became hypoxic there was clearly evidence of witnessed aspiration anesthesia intubated the patient, procedure was terminated, and the patient was transferred to the ICU, this consult was initiated. Patient is now on assist- control rate of 20 tidal volume 500 FiO2 70% PEEP of 10 ABG is pending, earlier ABG showed profound hypoxia patient is on propofol at 50 mcg/kg/min, next ABG is pending. Chest x-ray showed chronic changes without evidence of acute pulmonary disease. 01/10/2024, the patient is on low-dose Precedex. Currently comfortable, sensitive to mechanical ventilator. Output from the pigtail has dropped and the patient continues to have a positive airleak. The chest x-ray shows bilateral consolidation worse on the right and there is a small right apical pneumothorax. Pigtail catheter is in a good location. Blood gas showed a pH of 7.48 with a pCO2 of 35 and a pO2 of 83. He is on assist-control mode with rate of 20, tidal volume of 600, FiO2 30% with a PEEP of 5. RAYA drain output is serosanguineous. TPN is at 90 cc an hour. Fluid balance is -700 cc. The white cell count is at 15.4, hemoglobin is at 6.7 and the patient was given a unit of packed RBC and a platelet count is 188. Electrolytes show a BUN of 46 with a creatinine of 0.7, sodium of 135, potassium level of 3.3. Antibiotics has been modified to a combination of ciprofloxacin and tobramycin as the patient showed quinolone sensitive Pseudomonas in the sputum and in the drain the abscess from the right lung. 01/11/2024, the patient is being seen for a follow-up. Patient is currently on low-dose Precedex at 0.2 mcg/kg/min. Calm and comfortable, no significant coughing. Remains on the mechanical ventilator./On the same vent setting which includes assist-control of 20, tidal volume of 600, FiO2 30% with a PEEP of 5. Chest x-ray shows a right apical pneumothorax, extensive consolidation of the right lung and some limited consolidation in the left and the catheter is in place with purulent output. There is also possibility through the pigtail catheter. Tracheostomy tube is in good location. Remains on tobramycin and ciprofloxacin. The white cell count of 13.6, hemoglobin 8.4 and platelet count is at 208. Blood gas from today showed a pH of 7.48 with a pCO2 of 33 and pO2 of 93. Sodium is at 134, potassium is at 3.7, BUN is 44 with a creatinine of 0.8. LFTs are normal and the patient has an alkaline phosphatase of 233 as the patient continues to receive TPN for nutritional support. Triglyceride levels at 187. Otherwise, no other significant changes condition. Cardiac rhythm remains sinus. The patient is producing adequate amount of urine output. Extremely debilitated, extremely weak, J-tube is not functional and there is leak around the J-tube. The patient was seen again by general surgery and there is no plan to exchange the J-tube. Concern of some leak around the J-tube and based on that an ostomy appliance will be applied around the J-tube. On 01/12/2024, clinically unchanged, remains on Precedex at 0.7 mcg/kg/h. Remains on TPN for nutritional support. Remains on same ventilator settings with assist-control mode rate of 20, tidal volume of 500, FiO2 30% with a PEEP of 5. No blood gases are available from today. Repeat chest x-ray shows stable findings. Stable right apical pneumothorax. Consolidation involving the right lung and the left base remains unchanged. Sputum sample was positive for Pseudomonas aeruginosa and the patient remains on a combination of ciprofloxacin and tobramycin. The patient has positive air leak in his pigtail catheter and total amount of output overnight and over the past 12 hours has been in the order of 80 cc. Extremely debilitated. Extremely weak. Not coherent although arousable. evaluated today on 01/13/2024, remains in the ICU, patient remains intubated and mechanically ventilated, he is on volume control plus with tidal volume of 500 rate 20 FiO2 30% and PEEP of 5 ABG showed a pO2 of 90 pCO2 35 pH of 7.45. No changes were made in ventilator settings. Patient remains on Precedex at 0.8 mcg/kg/h remains on TPN at 90 cc/h patient remains on multiple antibiotics including Cipro fluconazole and tobramycin patient has resistant Pseudomonas in the sputum. Continues to have an air leak in the right-sided chest tube and he has a pigtail catheter in place. Chest x-ray continues showed significant airspace disease bilaterally. Patient is arousable but does not follow any instructions, he is a bit encephalopathic. Family is at bedside, and I had a long discussion with the family regarding his condition and prognosis.WBC count today 6.2 hemoglobin 8.1. Basic metabolic profile is normal renal profile is normal bicarb is 20. Albumin is 1.9. Patient is receiving Dilaudid intermittently for agitation. And that seems to calm down along with Precedex. Patient was seen today on 01/14/2024, patient remains in the ICU, intubated and mechanically ventilated, on volume control plus mode of mechanical ventilation with rate of 20 tidal volume 500 FiO2 30% and PEEP of 5 ABG showed a pO2 of 43 pCO2 of 40 pH of 7.3, however I believe there is an error in the pO2 since his O2 saturation is presently 100%. Patient remains on Precedex, 1.2 mcg/kg/h is also on TPN at 90 cc/h antibiotics were changed he is now on Zerbaxa Cipro and fluconazole. Patient had a -2.8 L over the last 24 hours, today he is awake, follows simple instructions. Remains intubated and mechanically ventilated, and noted to be a bit tachypneic. Patient is not requiring any pressors not requiring any propofol, hemodynamically stable, no chest x-ray was done today, continues to have air leak in the Pleur-evac. WBC is 15.3 hemoglobin 8.3, basic metabolic profile is normal renal profile is normal Patient was evaluated today on 01/15/2024, remains in the ICU, remains intubated and mechanically ventilated. Remains on volume control plus mode of mechanical ventilation with a rate of 20 tidal volume 500 FiO2 30% and PEEP of 5 No ABG was done today. Patient is awake, he looks comfortable, has I will give him a trial of pressure support of 14 and CPAP today. Continues to have multiple drips Precedex, at 1.3 mcg/kg/h he is also on TPN at 90 cc/h receiving Dilaudid 1 mg every 2 hours as needed patient is on the backside, ciprofloxacin, and fluconazole. Patient is to be placed on hospice possibly in the next 24 hours, family discussed his condition with hospice staff apparently yesterday. And the plan is to proceed with hospice on . Continues to have air leak from the pigtail catheter/pleural VAC. Chest x-ray continues to show bilateral airspace disease specially in the right lower lobe and left lower lobe, sputum has been positive for resistant Pseudomonas WBC count is 17 hemoglobin 7.9 basic metabolic profile is normal BUN is 40 creatinine 0.76 Patient was reevaluated today on 01/16/2024, patient remains in the ICU, intubated and mechanically ventilated, he is on pressure control mode of mechanical ventilation, with rate 20, pressure control of 15, inspiratory time of 0.8, FiO2 30% and PEEP of 5. Hemoglobin today is down to 6.5 WBC count is 12.3 hematocrit is 24.3 family is now requesting to have hospice at home, however the patient will not be able to make it home unless we could temporarily arrange for portable ventilator, will look into the possibility of doing so. In the meantime patient remains on treatment for his infections an Pseudomonas in the sputum, and in the pleural effusion fluid.d patient remains on TPN remains on Precedex at 1.5 mcg/kg/h. Patient is extremely frail, ill looking, chronically ill, and extremely weak Patient was reevaluated today on 01/17/2024, patient was supposed to be sent home today with hospice to follow at home, however the family today/ change her mind, and asking to consider palliative care, she is also asking for a second opinion but she is not specific about the second opinion, explained to her that the only 3 catalyst impregnator that we have in this institution is myself Dr. Jimenez and Dr. Nieves and we have all given the same opinion, and if she could find a place where they could accept him to transfer to another institution, I will be more than happy to do so patient was declined transfer to [facility] he was also declined transfer to the [facility]. Today he is on pressure control mode of mechanical ventilation basically unchanged compared to yesterday. He remains on Precedex 1.4 mcg/kg/h remains on TPN, still could not use his J-tube. Patient is intermittently on Dilaudid, an tibiotics arce he is receiving Cipro and fluconazole. Patient had multiple attempts to wean, could not tolerate more than few hours of pressure support of 14 and CPAP this has been done quite frequently and sometimes he does not even tolerate the switch from pressure control mode of mechanical ventilation to pressure support of mechanical ventilation. Patient is definitely a failure to wean and multiple attempts have failed. Patient has critical illness polyneuropathy he continues to have some nonspecific airspace disease bilaterally continues to have a pigtail catheter in place, and continues to have air leak,WBC count today is 16.3 hemoglobin 8.1 electrolytes showed low potassium of 3.3 being addressed accordingly renal profile is normal. Chest x- ray today is actually showing improvement compared to the previous x-rays he had all along. With significant improvement in the right upper lobe and the right lower lobe, continues to have some infiltrate in the left lower lobe Castriz seems to be intact Patient was seen01/18/24, remains in the ICU, remains intubated and mechanically ventilated, he is on pressure control mode of mechanical ventilation with pressure control of 15, DI of 0.8, rate 20, FiO2 30% and PEEP of 5 no ABG was done this morning did not feel to be necessary. Patient had a WBC of 15.8 hemoglobin 7.4. Basic metabolic profile is normal renal profile is normal continues to have bilateral airspace disease on chest x-ray specially the right upper lobe, and left lower lobe. Continues to have a pigtail catheter in place and continues to drain and he continues to have a air leak. Patient remains on ciprofloxacin, he is also on fluconazole, tobramycin was added by infectious disease on the case. Patient is getting now physical therapy and Occupational T herapy, he remains on Precedex at 1.3 mcg/kg/h he is also on TPN at 90 cc/h chest x-ray was noted and again he has bilateral airspace disease. Patient remains frail, chronically ill, and he does have clearly critical illness polyneuropathy. No plans by surgery to do much about his J-tube, continues to have a wound VAC in place. Today the patient will be given another trial of pressure support and CPAP, and will document how long he could do on pressure support mode of mechanical ventilation Patient was seen today on 01/19/2024, patient remains in the ICU, intubated and mechanically ventilated. Patient tolerated about 2 hours of pressure support and CPAP weaning yesterday, then he became restless, agitated, and went on to develop this ongoing cough. Hence had to be placed back on mechanical ventilation and remains on pressure control mode of mechanical ventilation with PI 15 ti 0.8 per 820 FiO2 30% PEEP of 5. Patient continues to have episodes of agitation and he has been on Precedex at 1.1 mcg/kg/h. Remains on TPN at 90 cc/h remains on IV fluid of 0.9 at 50 cc/h sodium is 129, that we will correct with 0.9 normal saline. Patient remains on tobramycin and ciprofloxacin and fluconazole. Continues to have right-sided pigtail catheter in place, and continues to have ongoing air leak. Chest x-ray continues to show airspace disease in both lungs but more concerning is the right upper lobe abnormality. Multiple attempts have been made in the past to wean the patient, and has not been able to tolerate more than few hours of pressure support and CPAP, will try another weaning trial today with pressure support of 14 and CPAP. Unfortunately I cannot place the patient on Seroquel and hoping to get rid of Precedex, mostly because we cannot use his GI tract. Fanny arce the patient remains on TPN. Objective - Vital Signs Vital signs: Vital Signs Temp 98.7 F 01/19/24 08:00 Pulse 71 01/19/24 10:00 Resp 18 01/19/24 10:00 BP 117/76 01/19/24 10:00 Pulse Ox 98 01/19/24 10:00 FiO2 30 01/19/24 08:40 Intake & Output 01/18/24 01/19/2401/18/24 18:59 06:59 18:59 Intake Total 2894.063 3138.457 750 Output Total 1830 1565 525 Balance 1600.016 7660.457 225 Weight 101 kg Intake: IV 1541 1742 350 0.9 Normal Saline @ KVO 130 120 30 Ciprofloxacin/Dextrose 400 Pmx 400 mg In Dextrose/ Water 1 200ml.bag @ 200 mls/hr IVPB Q8H [facility] Rx#: [id number] Fat Emulsion 20% 250 ml 231 42 In Empty Bag 1 bag @ 21 mls/hr IV [id number] [facility] Rx#:[id number] Fluconazole in NaCl,Iso- 100 Osm 200 mg In Saline 1 100ml.bag @ 100 mls/hr IVPB DAILY [facility] Rx#: [id number] Sodium Chloride 0.9% 1, 50 000 ml @ 50 mls/hr IV . Q20H [facility] Rx#:[id number] TPN 1080 1080 270 Tobramycin Sulfate 600 mg 100 In Sodium Chloride 0.9% 100 ml @ 115 mls/hr IVPB Q48H [facility] Rx#:[id number] Intake, IV Titration 8350.751 0807.457 400 Amount Ciprofloxacin/Dextrose 200 Pmx 400 mg In Dextrose/ Water 1 200ml.bag @ 200 mls/hr IVPB Q8H [facility] Rx#: [id number] Dexmedetomidine/0.9% NaCl 311.063 154.457 100 (Pmx) 400 mcg In Empty Bag 1 bag @ 0.2 MCG/KG/HR 5.2 mls/hr IV .[id number] [facility] Rx#:[id number] Fluconazole in NaCl,Iso- 100 Osm 200 mg In Saline 1 100ml.bag @ 100 mls/hr IVPB DAILY [facility] Rx#: [id number] Magnesium Sulfate-D5w Pmx 100 1 gm In Dextrose/Water 1 100ml.bag @ 100 mls/hr IVPB Q1H [facility] Rx#: [id number] Mvi, Adult No.4 with Vit 1042 1042 K 10 ml Trace (Conc-1Ml/ Dose) 1 ml Sodium Acetate 30 meq Magnesium Sulfate gm 1 gm Calcium Gluconate 0.5 gm Potassium Phosphate 9 mmol Potassium Acetate 12 meq In Amino Acids 5 %/ Dextrose 20 % 1,000 ml @ 90 mls/hr IV .BY DURATION [facility] Rx#:[id number] Potassium Chloride 20 meq 100 In Water For Injection 1 100ml.bag @ 50 mls/hr IVPB ONCE STA Rx#: [id number] Output: Chest Tube Drainage 40 Chest Tube Right 40 Drainage 0 90 0 Medial Abdomen 0 0 0 Right Upper Posterior 90 Chest Urine 1790 1475 525 Other: Voiding Method Indwelling Catheter Indwelling Catheter Indwelling Catheter ABP, PAP, CO, CI - Last Documented Arterial Blood Pressure 173/76 - Exam General: Revealed 73-year-old white male on mechanical ventilation Skin: Skin is warm and dry and no rashes or lesions are noted. Tracheostomy is intact. Eye: Pupils are equal, round and reactive to light, extra-ocular movements are intact; there is normal conjunctiva bilaterally. Ears, nose, mouth and throat: There are moist mucous membranes and no oral lesi ons. Neck: The neck is supple, there is no tenderness or JVD. No secretions around tracheostomy site, tracheostomy is intact. Cardiovascular: There is a regular rate and rhythm. No murmur, rub or gallop is appreciated. Respiratory: Crackles at the bases, no rhonchi no wheezes, right-sided pigtail catheter is noted, evidence of air leak no significant drainage from the pigtail catheter noted. Gastrointestinal: no rebound, no guarding, no bowel sounds, wound VAC is noted jejunostomy tube is noted Musculoskeletal: No deformities and no limitation range of motion other the patient seems to be generally weak. Neurological: Patient is awake ,generally weak, follows simple instructions Extremities: Trace of bipedal edema - Labs CBC & Chem 7: 01/18/24 08:20 01/19/24 05:38 Labs: Abnormal Lab Results - Last 24 Hours (Table) 01/18/24 01/18/24 01/18/24 Range/Units 11:25 17:31 23:46 Sodium (137-145) mmol/L Carbon Dioxide (22-30) mmol/L BUN (9-20) mg/dL Creatinine (0.66-1.25) mg/dL Glucose (74-99) mg/dL POC Glucose (mg/dL) 175 H 188 H 187 H (70-110) mg/dL Calcium (8.4-10.2) mg/dL Alkaline Phosphatase (38-126) U/L Total Protein (6.3-8.2) g/dL Albumin (3.5-5.0) g/dL 01/19/24 01/19/24 Range/Units 05:38 05:51 Sodium 129 L (137-145) mmol/L Carbon Dioxide 20 L (22-30) mmol/L BUN 31 H (9-20) mg/dL Creatinine 0.64 L (0.66-1.25) mg/dL Glucose 164 H (74-99) mg/dL POC Glucose (mg/dL) 181 H (70-110) mg/dL Calcium 7.2 L (8.4-10.2) mg/dL Alkaline Phosphatase 177 H (38-126) U/L Total Protein 6.0 L (6.3-8.2) g/dL Albumin 2.0 L (3.5-5.0) g/dL Assessment and Plan Assessment: Impression: Acute hypoxic respiratory failure requiring intubation mechanical ventilation secondary to aspiration. Status post tracheostomy on 12/10/2023 The patient has bilateral pneumonia with a cavitary infiltrate in the right upper lobe, secondary to Pseudomonas aeruginosa and Citrobacter and the patient is currently on a combination of ciprofloxacin, fluconazole, and tobramycin CAT scan of the chest done on 12/17/2023 was reviewed and the patient has a cavitating cyst/abscess in the posterior aspect of the right upper lobe in addition to patchy opacities bilaterally right more than left consistent with pneumonia,/gram-negative pneumonia. The patient had a pigtail catheter inserted with drainage of the right lung abscess. The bronchial washing is positive for Pseudomonas aeruginosa, quinolone sensitive and the cultures from the pigtail catheter/lung abscess was also positive for Pseudomonas aeruginosa.. Status post J-tube placement 11/16/2023, multiple complications since then related to the J-tube placement requiring multiple surgeries. Ongoing leak around the J-tube, improving still cannot use the J-tube for feeding Persistent right apical pneumothorax with persistent air leak noted in the pigtail catheter Acute peritonitis secondary to above, secondary to small bowel perforation with abdominal contamination Septic shock secondary to above Paroxysmal atrial fibrillation Weight loss secondary to non-Hodgkin's lymphoma Acute aspiration pneumonia/right upper lobe lung abscess, remains on antibiotics Acute aspiration during upper endoscopy most likely secondary to gastric outlet obstruction secondary to non-Hodgkin's lymphoma based on the pathology from stomach biopsies 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 Critical illness polyneuropathy Metabolic encephalopathy Malfunctioning of the J-tube Recommendation: Continue ventilatory will try another trial of weaning today with pressure support and CPAP using pressure support of 14, and CPAP, yesterday the patient tolerated only 2 hours of pressure support and CPAP. Continue antibiotics and antifungal therapy, as per ID on the case Continue Dilaudid and Precedex Continue nutritional support/TPN continue chest tube/pigtail catheter to suction Trial of tapering down Precedex and cutting down on the dose of Dilaudid Continue physical therapy Continue chest PT and frequent suctioning Continue GI and DVT prophylaxis social services is looking into [facility] Remains critically ill, prognosis is extremely poor Critical care time is over 30 Will continue to follow Time with Patient: Greater than 30
[2024-01-19] MEDS: POTASSIUM CHLORIDE 20 MEQ in WATER FOR INJECTION 1 100ML.BAG IVPB STA (11:19)
[2024-01-19 11:23] LABS: Glucose,Whole Blood 163 mg/dL (70-110)
--- NOTE | 2024-01-19 15:38 | P.PN ---
Subjective Progress Note Date: 01/18/24 Principal diagnosis: Reason for follow-up is pneumonia and bacteremia Patient is 73-year-old with male initial presentation to the hospital on 11/11/2021 for after the patient did have aspiration while undergoing elective endoscopy, diagnosed with a non-Hodgkin of, subsequently did have explained laparotomy for perforated small bowel abdominal washout and feeding jejunostomy tube patient did require dialysis catheter placement for dialysis during this hospital stay and tracheostomy for respiratory failure, infectious was consulted for fever. On today's evaluation that is 01/18/2024, Patient is afebrile this morning patient remains to be on the ventilator through the tracheostomy patient is hemodynamically stable no need for pressor support no diarrhea no change reported by nurse. Still having some drainage around his jejunostomy site which is mostly stool. Patient white count is 15.8 creatinine 0.67 Objective - Vital Signs Vital signs: Vital Signs Temp 98.5 F 01/18/24 12:00 Pulse 96 01/18/24 12:00 Resp 37 H 01/18/24 12:00 BP 114/77 01/18/24 12:00 Pulse Ox 96 01/18/24 12:00 FiO2 30 01/18/24 12:00 Intake & Output 01/17/24 01/18/24 01/18/24 18:59 06:59 18:59 Intake Total 2241.360 2202.656 980.520 Output Total 1820 1825 880 Balance 421.360 377.656 100.520 Weight 100.7 kg Intake: IV 1850 1915 815 0.9 Normal Saline @ KVO 60 125 70 Ciprofloxacin/Dextrose 200 400 Pmx 400 mg In Dextrose/ Water 1 200ml.bag @ 200 mls/hr IVPB Q8H [facility] Rx#: [id number] Fat Emulsion 20% 250 ml 105 In Empty Bag 1 bag @ 21 mls/hr IV TuThSa@0900 [facility] Rx#:[id number] Fluconazole in NaCl,Iso- 100 100 Osm 200 mg In Saline 1 100ml.bag @ 100 mls/hr IVPB DAILY [facility] Rx#: [id number] Magnesium Sulfate-D5w Pmx 100 1 gm In Dextrose/Water 1 100ml.bag @ 100 mls/hr IVPB ONCE [facility] Rx#: [id number] Magnesium Sulfate-D5w Pmx 100 1 gm In Dextrose/Water 1 100ml.bag @ 100 mls/hr IVPB Q1H [facility] Rx#: [id number] Potassium Chloride 10 meq 100 In Water For Injection 1 100ml.bag @ 100 mls/hr IVPB Q1H [facility] Rx#: [id number] Potassium Chloride 20 meq 100 400 In Water For Injection 1 100ml.bag @ 50 mls/hr IVPB Q2H [facility] Rx#: [id number] TPN 990 990 540 Tobramycin Sulfate 600 mg 100 In Sodium Chloride 0.9% 100 ml @ 115 mls/hr IVPB Q48H [facility] Rx#:[id number] Intake, IV Titration 391.360 287.656 165.520 Amount Dexmedetomidine/0.9% NaCl 391.360 287.656 165.520 (Pmx) 400 mcg In Empty Bag 1 bag @ 0.2 MCG/KG/HR 5.2 mls/hr IV .[id number] [facility] Rx#:[id number] Output: Chest Tube Drainage 100 10 10 Chest Tube Right 100 10 10 Drainage 20 35 0 Medial Abdomen 0 0 Right Abdomen 20 35 Urine 1700 1780 870 Other: Voiding Method Indwelling Catheter Indwelling Catheter Indwelling Catheter ABP, PAP, CO, CI - Last Documented Arterial Blood Pressure 173/76 - Exam Elderly male lying in bed intubated through the trach in no distress No tachypnea or accessory muscle respiration Unlabored breathing - Labs CBC & Chem 7: 01/18/24 08:20 01/19/24 05:38 Labs: Abnormal Lab Results - Last 24 Hours (Table) 01/17/24 01/17/24 01/18/24 Range/Units 18:02 23:14 05:42 WBC (3.8-10.6) k/uL RBC (4.30-5.90) m/uL Hgb (13.0-17.5) gm/dL Hct (39.0-53.0) % RDW (11.5-15.5) % Neutrophils # (1.3-7.7) k/uL Sodium (137-145) mmol/L BUN (9-20) mg/dL Glucose (74-99) mg/dL POC Glucose (mg/dL) 177 H 158 H 187 H (70-110) mg/dL Calcium (8.4-10.2) mg/dL Alkaline Phosphatase (38-126) U/L Total Protein (6.3-8.2) g/dL Albumin (3.5-5.0) g/dL 01/18/24 01/18/24 01/18/24 Range/Units 08:20 08:20 11:25 WBC 15.8 H (3.8-10.6) k/uL RBC 2.52 L (4.30-5.90) m/uL Hgb 7.4 L (13.0-17.5) gm/dL Hct 23.2 L (39.0-53.0) % RDW 17.2 H (11.5-15.5) % Neutrophils # 11.5 H (1.3-7.7) k/uL Sodium 130 L (137-145) mmol/L BUN 32 H (9-20) mg/dL Glucose 194 H (74-99) mg/dL POC Glucose (mg/dL) 175 H (70-110) mg/dL Calcium 7.1 L (8.4-10.2) mg/dL Alkaline Phosphatase 194 H (38-126) U/L Total Protein 6.0 L (6.3-8.2) g/dL Albumin 2.1 L (3.5-5.0) g/dL Assessment and Plan (1) Sepsis Current Visit: Yes Status: Acute Code(s): A41.9 - SEPSIS, UNSPECIFIED ORGANISM SNOMED Code(s): 12687220 (2) Pneumonia Current Visit: Yes Status: Acute Code(s): J18.9 - PNEUMONIA, UNSPECIFIED ORGANISM SNOMED Code(s): 947908375 (3) Bacteremia Current Visit: Yes Status: Acute Code(s): R78.81 - BACTEREMIA SNOMED Code(s): 5845770 Plan: 1patient with complicated pneumonia and lung abscess on the CT status post drainage catheter placement by interventional radiology subsequently did have purulent pleural fluid which has been cultured did have a chest tube and is growing Pseudomonas with slightly different sensitivity from the sputum Pseudomonas aeruginosa. 2-patient also have evidence of retro vesicular abscess on the CT abdominal pelvis, this has been discussed with the surgical team on the case in person however mention patient would not be able to tolerate any further surgery. 3patient CT chest also showed evidence of pulmonary abscess status post chest tube placement, pleural fluid cultures are growing Pseudomonas aeruginosa that is sensitive to Zerbaxa as well as tobramycin and Cipro and also growing Alejandra albicans 4patient family has decided against hospice care, the patient was subsequently started back on tobramycin and continued Cipro and Diflucan will monitor his kidney function closely white count is trending down Dictation was produced using [employer] software. please excuse any grammatical, word or spelling errors. Time with Patient: Less than 30
--- NOTE | 2024-01-19 15:39 | P.PN ---
Subjective Progress Note Date: 01/19/24 Principal diagnosis: Reason for follow-up is pneumonia and bacteremia Patient is 73-year-old with male initial presentation to the hospital on 11/11/2021 for after the patient did have aspiration while undergoing elective endoscopy, diagnosed with a non-Hodgkin of, subsequently did have explained laparotomy for perforated small bowel abdominal washout and feeding jejunostomy tube patient did require dialysis catheter placement for dialysis during this hospital stay and tracheostomy for respiratory failure, infectious was consulted for fever. On today's evaluation that is 01/19/2024,the patient continues to be afebrile patient remains to be on the ventilator through the trach patient is hemodynamic stable remains to be on Cleviprex, no diarrhea any change reported by the nursing staff No CBC was done today his creatinine 0.64 Objective - Vital Signs Vital signs: Vital Signs Temp 97.6 F 01/19/24 12:00 Pulse 72 01/19/24 15:00 Resp 27 H 01/19/24 15:00 BP 119/74 01/19/24 15:00 Pulse Ox 98 01/19/24 15:00 FiO2 30 01/19/24 12:00 Intake & Output 01/18/24 01/19/24 01/19/24 18:59 06:59 18:59 Intake Total 2894.063 3138.457 1609.521 Output Total 1830 1565 1160 Balance 3031.836 5558.457 449.521 Weight 101 kg Intake: IV 1541 1742 1040 0.9 Normal Saline @ KVO 130 120 20 Ciprofloxacin/Dextrose 400 Pmx 400 mg In Dextrose/ Water 1 200ml.bag @ 200 mls/hr IVPB Q8H [facility] Rx#: [id number] Fat Emulsion 20% 250 ml 231 42 In Empty Bag 1 bag @ 21 mls/hr IV TuThSa@0900 [facility] Rx#:[id number] Fluconazole in NaCl,Iso- 100 Osm 200 mg In Saline 1 100ml.bag @ 100 mls/hr IVPB DAILY [facility] Rx#: [id number] Sodium Chloride 0.9% 1, 300 000 ml @ 50 mls/hr IV . Q20H [facility] Rx#:[id number] TPN 1080 1080 720 Tobramycin Sulfate 600 mg 100 In Sodium Chloride 0.9% 100 ml @ 115 mls/hr IVPB Q48H [facility] Rx#:[id number] Intake, IV Titration 4157.961 2689.457 569.521 Amount Ciprofloxacin/Dextrose 200 Pmx 400 mg In Dextrose/ Water 1 200ml.bag @ 200 mls/hr IVPB Q8H [facility] Rx#: [id number] Dexmedetomidine/0.9% NaCl 311.063 154.457 269.521 (Pmx) 400 mcg In Empty Bag 1 bag @ 0.2 MCG/KG/HR 5.2 mls/hr IV .[id number] [facility] Rx#:[id number] Fluconazole in NaCl,Iso- 100 Osm 200 mg In Saline 1 100ml.bag @ 100 mls/hr IVPB DAILY [facility] Rx#: [id number] Magnesium Sulfate-D5w Pmx 100 1 gm In Dextrose/Water 1 100ml.bag @ 100 mls/hr IVPB Q1H [facility] Rx#: [id number] Mvi, Adult No.4 with Vit 1042 1042 K 10 ml Trace (Conc-1Ml/ Dose) 1 ml Sodium Acetate 30 meq Magnesium Sulfate gm 1 gm Calcium Gluconate 0.5 gm Potassium Phosphate 9 mmol Potassium Acetate 12 meq In Amino Acids 5 %/ Dextrose 20 % 1,000 ml @ 90 mls/hr IV .BY DURATION [facility] Rx#:[id number] Potassium Chloride 20 meq 100 In Water For Injection 1 100ml.bag @ 50 mls/hr IVPB ONCE [facility] Rx#: [id number] Output: Chest Tube Drainage 40 60 Chest Tube Right 40 60 Drainage 0 90 0 Medial Abdomen 0 0 0 Right Upper Posterior 90 Chest Urine 1790 1475 1100 Other: Voiding Method Indwelling Catheter Indwelling Catheter Indwelling Catheter ABP, PAP, CO, CI - Last Documented Arterial Blood Pressure 173/76 - Exam Elderly male lying in bed intubated through the trach in no distress No tachypnea or accessory muscle respiration Unlabored breathing - Labs CBC & Chem 7: 01/18/24 08:20 01/19/24 05:38 Labs: Abnormal Lab Results - Last 24 Hours (Table) 01/18/24 01/18/24 01/19/24 Range/Units 17:31 23:46 05:38 Sodium 129 L (137-145) mmol/L Carbon Dioxide 20 L (22-30) mmol/L BUN 31 H (9-20) mg/dL Creatinine 0.64 L (0.66-1.25) mg/dL Glucose 164 H (74-99) mg/dL POC Glucose (mg/dL) 188 H 187 H (70-110) mg/dL Calcium 7.2 L (8.4-10.2) mg/dL Alkaline Phosphatase 177 H (38-126) U/L Total Protein 6.0 L (6.3-8.2) g/dL Albumin 2.0 L (3.5-5.0) g/dL 01/19/24 01/19/24 Range/Units 05:51 11:22 Sodium (137-145) mmol/L Carbon Dioxide (22-30) mmol/L BUN (9-20) mg/dL Creatinine (0.66-1.25) mg/dL Glucose (74-99) mg/dL POC Glucose (mg/dL) 181 H 163 H (70-110) mg/dL Calcium (8.4-10.2) mg/dL Alkaline Phosphatase (38-126) U/L Total Protein (6.3-8.2) g/dL Albumin (3.5-5.0) g/dL Assessment and Plan (1) Sepsis Current Visit: Yes Status: Acute Code(s): A41.9 - SEPSIS, UNSPECIFIED ORGANISM SNOMED Code(s): 23743842 (2) Pneumonia Current Visit: Yes Status: Acute Code(s): J18.9 - PNEUMONIA, UNSPECIFIED ORGANISM SNOMED Code(s): 105000082 (3) Bacteremia Current Visit: Yes Status: Acute Code(s): R78.81 - BACTEREMIA SNOMED Code(s): 6672782 Plan: 1patient with complicated pneumonia and lung abscess on the CT status post drainage catheter placement by interventional radiology subsequently did have purulent pleural fluid which has been cultured did have a chest tube and is growing Pseudomonas with slightly different sensitivity from the sputum Pseudomonas aeruginosa. 2-patient also have evidence of retro vesicular abscess on the CT abdominal pelvis, this has been discussed with the surgical team on the case in person however mention patient would not be able to tolerate any further surgery. 3patient CT chest also showed evidence of pulmonary abscess status post chest tube placement, pleural fluid cultures are growing Pseudomonas aeruginosa that is sensitive to Zerbaxa as well as tobramycin and Cipro and also growing Alejandra albicans 4patient is currently being treated with tobramycin, Cipro and Diflucan will monitor, potentially decrease her 2-week course however no recommend obtaining a CT of the chest abdominal pelvis to make sure resolution of the abscess before discontinuation of antibiotic Dictation was produced using [employer] dictation software. please excuse any grammatical, word or spelling errors. Time with Patient: Less than 30
[2024-01-19] MEDS: 1: MVI, ADULT NO.4 WITH VIT K 10 ML, TRACE (CONC-1ML/DOSE) 1 ML, SODIUM ACETATE 30 MEQ, IV SCH (17:31)
[2024-01-19 17:37] LABS: Glucose,Whole Blood 144 mg/dL (70-110)
[2024-01-20 00:14] LABS: Glucose,Whole Blood 180 mg/dL (70-110)
[2024-01-20 06:22] LABS: Anisocytosis Slight; Basophils # (A) 0.1 k/uL (0-0.2); Basophils % (A) 0 %; Eosinophils # (A) 0.2 k/uL (0-0.7); Eosinophils % (A) 2 %; HCT 25.3 % (39.0-53.0); HGB 8.3 gm/dL (13.0-17.5); Hypochromasia Slight; Lymphocytes # (A) 3.4 k/uL (1.0-4.8); Lymphocytes % (A) 21 %; MCH 30.4 pg (25.0-35.0); MCHC 32.9 g/dL (31.0-37.0); MCV 92.3 fL (80.0-100.0); Monocytes % (A) 6 %; Neutrophils # (A) 11.4 k/uL (1.3-7.7); Neutrophils % (A) 70 %; Platelet Count 363 k/uL (150-450); RBC 2.74 m/uL (4.30-5.90); RDW 16.8 % (11.5-15.5); WBC 16.3 k/uL (3.8-10.6)
[2024-01-20 06:42] LABS: ALT 25 U/L (4-49); AST 28 U/L (17-59); African American GFR (CKD) >90 (>60 ml/min/1.73 sqM); Albumin 2.2 g/dL (3.5-5.0); Alkaline Phosphatase 194 U/L (38-126); Anion Gap 5 mmol/L; Blood Urea Nitrogen 30 mg/dL (9-20); Calcium 7.2 mg/dL (8.4-10.2); Carbon Dioxide 22 mmol/L (22-30); Chloride 103 mmol/L (98-107); Glucose 152 mg/dL (74-99); Magnesium 1.7 mg/dL (1.6-2.3); Non-African American GFR(CKD) >90 (>60 ml/min/1.73 sqM); Phosphorus 3.4 mg/dL (2.5-4.5); Potassium 3.7 mmol/L (3.5-5.1); Sodium 130 mmol/L (137-145); Total Bilirubin 0.8 mg/dL (0.2-1.3); Total Protein 6.3 g/dL (6.3-8.2)
[2024-01-20 06:42] LABS: Glucose,Whole Blood 195 mg/dL (70-110)
--- NOTE | 2024-01-20 08:31 | XR ---
EXAMINATION TYPE: XR chest 1V portable DATE OF EXAM: 01/20/2024 5:30 AM COMPARISON: None. CLINICAL INDICATION: Male, 73 years old with history of trach/vent, FINDINGS: Indwelling tubes and catheters are unchanged. No change in bibasilar opacities. Stable appearance of the cardio-mediastinal structures at this time. IMPRESSION: 1. Stable portable chest. Clinical correlation and follow up until resolution is recommended. [facility], , 01/20/2024 8:29 AM
--- NOTE | 2024-01-20 08:59 | P.PN ---
Subjective Patient is seen in follow-up for acute kidney injury. Patient underwent exploratory laparotomy with small bowel obstruction NG tube replacement Sep tem2023. Nonoliguric. Started on hemodialysis November 29, 2023. Last dialysis December 18, 2023. Status post tracheostomy December 10, 2023. Renal function has improved and is back to baseline. Receiving TPN. Off vasopressors. Underwent drainage of lung abscess January 07, 2024. Hemoglobin improved post blood transfusion. On sedation. Vital signs stable. General: Resting in bed. HEENT: Tracheostomy noted. LUNGS: Scattered rhonchi. Chest tube noted. HEART: Regular rate and rhythm. ABDOMEN: No drainage. EXTREMITITES: Trace edema. Objective - Vital Signs Vital signs: Vital Signs Temp 98.1 F 01/20/24 04:00 Pulse 70 01/20/24 07:00 Resp 27 H 01/20/24 07:00 BP 133/90 01/20/24 07:00 Pulse Ox 97 01/20/24 07:00 FiO2 30 01/20/24 07:37 Intake & Output 01/19/24 01/20/24 01/20/24 18:59 06:59 18:59 Intake Total 2123.554 2358.62 229.96 Output Total 1435 1495 235 Balance 688.554 863.62 -5.04 Weight 100.6 kg Intake: IV 1460 2080 140 0.9 Normal Saline @ KVO 20 Ciprofloxacin/Dextrose 400 Pmx 400 mg In Dextrose/ Water 1 200ml.bag @ 200 mls/hr IVPB Q8H [facility] Rx#: [id number] Sodium Chloride 0.9% 1, 450 600 50 000 ml @ 50 mls/hr IV . Q20H [facility] Rx#:[id number] TPN 990 1080 90 Intake, IV Titration 663.554 278.62 89.96 Amount Dexmedetomidine/0.9% NaCl 363.554 278.62 89.96 (Pmx) 400 mcg In Empty Bag 1 bag @ 0.2 MCG/KG/HR 5.2 mls/hr IV .[id number] [facility] Rx#:[id number] Fluconazole in NaCl,Iso- 100 Osm 200 mg In Saline 1 100ml.bag @ 100 mls/hr IVPB DAILY [facility] Rx#: [id number] Magnesium Sulfate-D5w Pmx 100 1 gm In Dextrose/Water 1 100ml.bag @ 100 mls/hr IVPB Q1H [facility] Rx#: [id number] Potassium Chloride 20 meq 100 In Water For Injection 1 100ml.bag @ 50 mls/hr IVPB ONCE [facility] Rx#: [id number] Output: Chest Tube Drainage 60 50 Chest Tube Right 60 50 Drainage 0 0 60 Medial Abdomen 0 0 Right Upper Posterior 60 Chest Urine 1375 1445 175 Other: Voiding Method Indwelling Catheter Indwelling Catheter ABP, PAP, CO, CI - Last Documented Arterial Blood Pressure 173/76 - Labs CBC & Chem 7: 01/20/24 05:56 01/20/24 05:56 Labs: Abnormal Lab Results - Last 24 Hours (Table) 01/19/24 01/19/24 01/20/24 Range/Units 11: 17:36 00:12 WBC (3.8-10.6) k/uL RBC (4.30-5.90) m/uL Hgb (13.0-17.5) gm/dL Hct (39.0-53.0) % RDW (11.5-15.5) % Neutrophils # (1.3-7.7) k/uL Sodium (137-145) mmol/L BUN (9-20) mg/dL Creatinine (0.66-1.25) mg/dL Glucose (74-99) mg/dL POC Glucose (mg/dL) 163 H 144 H 180 H (70-110) mg/dL Calcium (8.4-10.2) mg/dL Alkaline Phosphatase (38-126) U/L Albumin (3.5-5.0) g/dL 01/20/24 01/20/24 01/20/24 Range/Units 05:56 05:56 06:41 WBC 16.3 H (3.8-10.6) k/uL RBC 2.74 L (4.30-5.90) m/uL Hgb 8.3 L (13.0-17.5) gm/dL Hct 25.3 L (39.0-53.0) % RDW 16.8 H (11.5-15.5) % Neutrophils # 11.4 H (1.3-7.7) k/uL Sodium 130 L (137-145) mmol/L BUN 30 H (9-20) mg/dL Creatinine 0.65 L (0.66-1.25) mg/dL Glucose 152 H (74-99) mg/dL POC Glucose (mg/dL) 195 H (70-110) mg/dL Calcium 7.2 L (8.4-10.2) mg/dL Alkaline Phosphatase 194 H (38-126) U/L Albumin 2.2 L (3.5-5.0) g/dL Assessment and Plan Plan: Assessment: 1. Acute kidney injury secondary to ATN secondary to septic shock. Creatinine 0.86 on admission and up to 5.38 dated November 29, 2023. Urine output impr rayshawn, now nonoliguric. UA fairly benign. No hydronephrosis noted on imaging. Started on hemodialysis November 29, 2023 due to volume overload. Patient initially had a right femoral catheter placed which subsequently became occluded and a left tunneled femoral catheter was placed December 06, 2023. Renal function back to baseline. 2. Perforated small bowel status post exploratory laparotomy with abdominal washout, small bowel resection and J-tube replacement November 25, 2023. 3. A-fib with RVR. s/p amiodarone drip. Also received digoxin this admission. 4. Recently diagnosed gastric B-cell lymphoma. 5. Septic shock. Likely abdominal source. On IV antibiotics. Blood culture positive for staph. ID following. Dialysis catheter removed. 6. Hypocalcemia secondary to acute kidney injury. Replaced. Improved. 7. Metabolic acidosis secondary to acute kidney injury, TPN. 8. Volume overload. Improved with diuresis and ultrafiltration. 9. Status post tracheostomy December 10, 2023. 10. Anemia. Component of chronic illness and acute blood loss. Received blood transfusions and DDAVP this admission. 11. Hypernatremia from lack of oral water intake. Status post D5W. Resolved. 12. Hypokalemia from poor intake. Being replaced as needed. Plan: Last dialysis December 18, 2023. No further need at this time. Dialysis catheter removed December 28, 2023. Receiving TPN. Avoid nephrotoxins. Preserved EF noted on echocardiogram. Replace electrolytes as needed. Lasix as needed. Aranesp discontinued as patient does not have CKD. Prognosis guarded.
--- NOTE | 2024-01-20 10:00 | P.PN ---
Subjective This is a 73-year-old patient, follows with Dr. Patricia Deal. Patient was seen this morning in the ICU. Patient's and daughter at the bedside. History obtained predominantly by the . Patient been having trouble with his stomach symptoms for close to 8 months. Patient underwent EGD by Dr. Sahara Cheng yesterday. Patient was found to have ulcerated around the antrum and obstruction to the pylorus. A lot of retained food was found. Patient aspirated. Had to be intubated and brought to the ICU. On a Levophed drip. FiO2 50 and a PEEP of 6. Patient had been losing weight lost about 25 pounds. Previously has a history of mitral valve prolapse. November 13: ICU. Patient remains on Precedex drip and propofol drip. Did not do well attempted extubation yesterday. Patient been off Levophed. NG tube to suction. Spoke to patient's and son at the bedside. Biopsy results awaited. Hemoglobin dropped to 6.9 this morning. Get a unit of blood. November 14: ICU. Up in a chair. Extubated yesterday. NG tube to suction. at the bedside. 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 Oncology was consulted. They have ordered a port. Results discussed with Dr. Sahara Cheng. General surgery was consulted for J-tube placement. Discussed with at the bedside. Patient getting IV fluids, IV Zosyn,. Patient has been on IV amiodarone for A-fib-back in sinus rhythm. Multiple PACs. Did receive unit of blood yesterday. Also IV ferric gluconate. November 15: ICU. Patient earlier today underwent jejunostomy tube placement and a port placement. Patient awake. Answering questions. NG tube to suction present. Updated patient's . Patient remains on IV amiodarone and IV Zosyn. November 16: ICU. Up in the chair. NG tube present but not to suction. Trickle feeding through the jejunostomy tube should be started today. Dietitian has been on board. IV Zosyn to continue. Patient's and his sister at the bedside. Discussed. Also spoke with Dr. Serna. Given patient has no other predisposing cardiac factors for the A-fib except acute illness. His LV function is normal. Left atrium is normal. He has already been loaded with IV amiodarone. Will switch him to oral Lopressor 12.5 twice daily. Hence will DC amiodarone. Patient yesterday had wheezing was put on bronchodilators steroids per pulmonary. November 17: Propped up in bed. NG tube was discontinued. Sinus rhythm. Remains NPO. Getting G-tube feeding at 40 cc an hour. Dietitian following. Get arrangements done for DC home tomorrow including tube feeding. Increase activity discussed with patient and elder daughter at the bedside. Still requiring oxygen. Incentive spirometry. November 18: Patient up in recliner. Earlier today spoke to social contact worker David. Informed patient is rather weak and will be going to the [facility]. Looking at authorization. Denies came to the room and spoke to patient his and his daughter. They are very keen to take the patient home as 3 daughters all nurses and they will take care of him at home. Patient earlier today to abdominal cramping and some loose stools.'s tube feeding was held. Told the nurse to start back at the rate of 40 cc an hour. He was before the getting it at 55 cc an hour. Incentive spirometry was again emphasized. Patient remains on 4 L of oxygen. November 19: I saw the patient this morning. Hence I am in the evening. Morning was sitting with his sons. Has some edema. Lungs had crackles I gave him 40 mg of Lasix. He did make good urine. Tube feeding was held from the previous evening of because of abdominal cramping. Acute abdominal series showed nonspecific bowel gas pattern and SBO to be ruled out. Family and patient was updated. Told him discharge will depend on day by day. Later this afternoon CT scanAnd abdomen pelvis done. Showed small bowel to be 3 point centimeter dilated. Some anasarca. Gastric findings. Gallstones. Later spoke to Dr. Irby from general surgery. They will further review and decide about further plan of action. Will give further dose of IV Lasix because of fluid overload from likely hypoalbuminemia and IV fluids previously received. Patient may take his pills by mouth. Total time spent today about 1 hour with over 40 minutes of discussion. Patient did state his breathing is better after Lasix this morning. November 20: Saw the patient this morning. was present. Patient received 2 more doses of Lasix. Diuresed well. Breathing much better. Lungs are sounding better. Discussed with Dr. Zepeda other surgeon. He is taking 3 cc out of the balloon and the gastrostomy tube. Started trickle feeding at 5 cc an hour. Will see how this does. Later in the day ran into the and the daughter again. Did update them on the same. Dilaudid was discontinued yesterday but morphine was ordered by surgery for patient having pain. Concerns about GI issues with that we will DC the morphine. As family does not want the same. November 21: Patient reclining bed. Tired. Several family members at the bedside. Including his and eldest daughter. Patient started on trickle feed yesterday at 5 cc an hour. This morning he has been on 10 cc an hour. Still having some loose stools. C. difficile was ordered. Patient on 2 L of nasal cannula. Has diuresed well. Will give an additional dose of Lasix today. If C. difficile is negative and the diarrhea is from the tube feedings we may have to use a fecal management system to keep him comfortable. Otherwise patient remains NPO. Dietitian is following the patient. Care was discussed length with patient the and daughter at the bedside. Questions answered. Liquid Tylenol has been added for abdominal pain. Avoid narcotics. Elevated white count likely from Solu-Medrol 11/23/2023--patient was feeling better today. Multiple family member at beds jazmin. No issues overnight. Normal saline at 10 cc an hour, tube feeding at 20 cc an hour, remains on Zosyn, on 3 L oxygen. Afebrile. Heart rate 62, respiratory rate 16, blood pressure 114/67, saturating 91% on 3 L. WBCs 14.5, 9.7 hemoglobin. Platelet 242. BMP is unremarkable. Pulmonary and general surgery following. General surgery recommended to continue tube feeds at 20 cc/h. 11/24/2023--patient reported significant abdominal discomfort, also noted to have leak around G-tube. General surgery is following, evaluated the patient at bedside, adjusted tube feeds. Also reported having diarrhea, on 2 L oxygen, went up to 5 L. Blood pressure was low, 500 mL fluid bolus with close jorje toring of respiratory status ordered. Currently on DuoNebs, Solu-Medrol, will continue Zosyn. Chest x-ray showed a left lower lobe infiltrate. Abdominal x- ray showed multiple air-fluid levels. CT abdomen showed multiple dilated small bowel loops, consistent with obstruction, pneumoperitoneum, cholelithiasis and ascites. WBCs 14.1, platelet 255, hemoglobin 8.9. NG tube in place. Family at bedside. patient transferred to SICU for close monitoring. 11/25/23--patient is currently in the ICU, required Levophed overnight due to low blood pressure, low urine output with creatinine trending up. Nephrology following. Fruit Pitter also following. Patient remains n.p.o., NG tube in place, following NG tube insertion patient had total of 2 L output, J-tube was draining approximately 200 cc over last 8 hours, continues to have abdominal pain and abdominal tenderness. Patient on IV fluids. Currently on 4 L oxygen. WBCs 8.2, hemoglobin 12.3, platelet 188. Chest x-ray earlier today showed right sided port and a stable left lung airspace disease, NG tube in place. Patient currently on Zosyn, on IV Dilaudid for pain control, on IV Solu-Medrol. General surgery planning for OR today, started on TPN. 11/26/23--patient was seen and examined today. Patient is currently sedated, intubated on mechanical ventilation. Family at bedside. Patient underwent ex lap, abdominal washout, small bowel resection with new feeding jejunostomy tube placement yesterday, small bowel was noted to be perforated with significant contamination of abdominal cavity. Patient is currently on vancomycin and Zosyn. Creatinine went up to 2.85, nephrology following, recommended to continue IV fluids, avoid nephrotoxin Preserved EF on echocardiogram.. Patient currently on Levophed, vasopressin in the ICU for close monitoring. Patient is afebrile, heart rate 122, blood pressure 129/76, currently on mechanical ventilation, sedated. November 26: ICU. Intubated. FiO2 60 and a PEEP of 5. Drips include IV amiodarone. Heart rate was up early did get fired microgram of IV digoxin and 2.5 mg of IV Lopressor. Did drop her blood pressure bit. Urine output was low. Received 80 mg of IV Lasix. Ahmet to 150 cc. Other drips include IV propofol, vasopressin, Levophed. TPN was started yesterday. Antibiotics include IV Zosyn and vancomycin. Patient has a J-tube to drainage to gravity. Spoke to patient's younger daughter and at the bedside. Prognosis guarded. Continue current treatment plan. Chest x-ray shows right lower lobe consolidation. Small pleural effusion. November 27: ICU. Intubated. FiO2 55 and a PEEP of 5. Antibiotics include IV vancomycin. Drips include Levophed at a small dose, IV vasopressin, propofol, amiodarone. Patient converted to sinus rhythm this morning. Getting TPN and normal saline at 75 cc an hour. Urine output about 25 cc an hour. RAYA drain put out about 260 cc last 12 hours that is last night shift supervisor. NG tube with bilious output. And also GI J-tube output to gravity. Spoke to patient's and daughter at the bedside. They understand patient still not out of the kee. Platelets have dropped-therefore probably Zosyn stopped. November 28: ICU. Intubated. FiO2 55 and a PEEP of 5. Patient is in sinus rhythm. Seen this morning. Due for dialysis catheter this afternoon. Urine output about 15 to 20 cc an hour. Patient is on IV Lasix 80 mg every 12. Saline is KVO. Drips include IV propofol vasopressin. Patient having s ignificant output through the RAYA drain and the jejunostomy tube to drainage. Creatinine had been getting worse. Patient's at the bedside. Understands patient's remains critically ill. Hemoglobin is down to 7. Given that patient's pain hypotensive, and on vasopressin we will give a unit of blood with dialysis. Getting TPN antibiotic changed to IV meropenem November 29: ICU. Intubated. FiO2 55 and a PEEP of 5. Remains in sinus rhythm. Getting TPN. Dialyzed yesterday and this morning. About 1000 cc removed. Urine output about 50 cc an hour. Patient is on IV propofol. Off vas opressin. Still having significant output through the RAYA drain and jejunostomy tube. Patient received a second unit of blood yesterday. Patient's and daughter at the bedside. I did discuss guarded prognosis. Did asked them to revisit CODE STATUS.. Getting IV meropenem. November 30: ICU. Intubated. Did get a sedation holiday t today. Back on propofol. Getting TPN. Still getting IV Lasix. Fair urine output. Jejunostomy tube in last 8 hours was about 30 cc output. RAYA drain in the 8 hours had about 180 cc output. Telemetry shows sinus rhythm. NG tube has low intermittent suction with negative output. On the vent with FiO2 40 and a PEEP of 5. No hemodialysis today. Discussed with the and eldest daughter at the bedside. IV meropenem-patient's sputum had grown Citrobacter freundii and Pseudomonas aeruginosa. December 01: ICU. Intubated. Jejunostomy tube to gravity. Only 10 cc output in last 24 hours. RAYA drain. About 190 cc last 6 hours. Nasogastric tube to low intermittent suction. Minimal output. Patient is on a small dose of propofol 5 mics. Telemetry shows sinus rhythm. Patient started on small dose of Cleviprex this morning. Blood pressure. Getting TPN. FiO2 35 and PEEP of 5. Discussed with the at the bedside. Hemodialysis today December 02: ICU. Patient remains intubated. FiO2 35 PEEP of 5. Patient is on IV propofol. IV Cleviprex was discontinued yesterday. Also remains on TPN. Telemetry shows sinus rhythm. NG tube is good no output. Still significant output through the RAYA drain. Jejunostomy tube has minimal output. Patient had hemodialysis today 2 L of fluid was removed. Oral half liters yesterday. Patient getting a sedation holiday. General Surgery started the patient on trickle feeding at 10 cc an hour. I did speak to patient's at the bedside. Prognosis remains guarded but there is some improvement. December 03: ICU. Intubated. FiO2 35 PEEP of 5. Drips include IV propofol and Precedex. Getting TPN. Telemetry shows sinus rhythm. Remains on IV Lasix 80 mg twice a day. IV meropenem. Because patient gets easily agitated when transitioning off propofol he has been switched over to Precedex. For hemodialysis today. December 04: ICU. Intubated. FiO2 35 and a PEEP of 5. Patient been taken off propofol is on Precedex. Telemetry sinus rhythm. J-tube with minimal output. RAYA drain with decreased output. NG tube to suction minimal output. Family wanted to hold off trickle feeding until cleared by oncology. Which he did today. Trickle feeding will be started today. Spoke to patient's and one of the daughters at the bedside. Dr. Russ is spoken to the earlier this point they want to do further tracheostomy tube. December 05: ICU. Intubated. FiO2 35 PEEP of 5. Patient remains on Precedex and PPN. Patient's dialysis catheter was not functioning is getting another [address] Bobby this afternoon. Remains on IV meropenem. Has a RAYA drain in the jejunostomy tube to gravity. NG tube to low intermittent suction. No family at the bedside. December 06: ICU. Intubated. FiO2 35 PEEP of 5. RAYA drain putting out about approximately 120 cc per shift. Patient on IV Precedex. FiO2 35 PEEP of 5. Telemetry-sinus rhythm. Patient occasionally been put on small dose of Levophed specially for hemodialysis getting it today. Also started on midodrine for low blood pressure. Tolerating tube feeding at 10 cc an hour. Also had a bowel movement. Mentation has not improved. Even with sedation holiday. Neurology consulted. CT brain shows no acute process. December 07: ICU. Intubated. FiO2 35 PEEP of 5. Telemetry-sinus rhythm. NG tube to suction low intermittent minimal output. Getting TPN. Tube feeding at 20 cc an hour. RAYA drain averaging over 100 cc per shift. Remains on Precedex. EEG was done today. Discussed with at the bedside. Family is currently not inclined for tracheostomy tube today. Day 13 of being intubated December 08: ICU. Intubated. FiO2 35 PEEP of 5. Patient is put on back on propofol per battery assembler dry cell Dr. JIMENEZ. EEG did show some potential for spikes was put on Keppra by neurology. Telemetry shows sinus rhythm. NG tube to suction with no output. Tube feeding was put on hold because of questionable discharge on the site. Being restarted today. RAYA drain is 150 cc last 12-hour shift. Patient does open eyes. Family has decided to proceed with tracheostomy and surgery has been consulted for the same. Spoke to the at the bedside. For hemodialysis today. December 09: ICU. Intubated FiO2 35 PEEP of 5. Patient seen this morning. Pending tracheostomy placement this afternoon. Remains NPO. G-tube feeding was held overnight. RAYA drain putting out about 100 cc per shift. Received a unit of blood for hemoglobin of 6.6. On 25 mics of propofol. Getting TPN and meropenem. Spoke to the at the bedside. Patient became hypotensive with dialysis yesterday. Levophed had to be given. Only 800 cc were removed yesterday. No hemodialysis today. December 10: ICU . FiO2 35, PEEP 5. Tracheostomy was done yesterday by Dr. Ewing. G-tube feeding was started today at 10 cc an hour. Dietitian following. RAYA drain 12-hour shift overnight put out about 30 cc. Patient hemodialysis today about 1 L removed. Patient has a sacral stage II decub with a dressing. On propofol 20 mics. Spoke to at the bedside. TPN. Meropenem was discontinued yesterday. December 11: ICU. FiO2 35 PEEP of 5. Tracheostomy. NG tube was discontinued. No hemodialysis today. Telemetry shows sinus rhythm. J-tube feeding at 40 cc an hour. TPN was discontinued. Patient has been off propofol also. PICC line in place. Patient had a EEG done today. Spoke to patient's elder daughter at the bedside. May open eyes occasionally. Not really following commands December 12: 73-year-old white male with history of chronic abdominal pain for the last 8 months has been treated with Protonix 40 mg daily for the last 3 months with no improvement. Patient had a 22 pound weight loss in the last [address] of the abdomen and pelvis 3 weeks ago showed thickening of the antral wall with pat hological adenopathy posterior to the stomach suspicious of neoplasm. Today the patient underwent elective upper endoscopy to evaluate further, patient received IV sedation by anesthesia endoscope was inserted into the mouth, esophagus was intubated without any difficulty there was evidence of large amount of liquid and solid food noted in the stomach suggestive of gastric outlet obstruction. Scope could not be advanced through the pylorus, however in the prepyloric area there was a large superficial ulceration identified with multiple biopsies were done from this area. The body cardia and fundus could not adequately visualize because of large amount of retained food in the stomach. Scope was withdrawn back to the stomach and upon careful examination the mucosa of the antrum body and cardia as well as the fundus appeared normal. Procedure was being performed and biopsies were done patient threw up and subsequently became hypoxic there was clearly evidence of witnessed aspiration anesthesia intubated the patient, procedure was terminated, and the patient was transferred to the ICU, this consult was initiated. Patient is now on assist-control rate of 20 tidal volume 500 FiO2 70% PEEP of 10 ABG is pending, earlier ABG showed profound hypoxia patient is on propofol at 50 mcg/kg/min, next ABG is pending. Chest x-ray showed chronic changes without evidence of acute pulmonary disease. 12/14/2023 Patient remains in the ICU, generally weak Patient s/p tracheostomy G-tube in place Patient still has fever and mild tachycardia but tachycardia is improving, leukocytosis improving as well. Hemoglobin 8.1. Creatinine 3.0 and nephrology team on the case. He has mild transaminitis. He was getting Zosyn which is held now, nowCalcitonin is pending 12/14 Patient shon in the ICU, he is still encephalopathic and does not follow command. Neurology service following closely. He is status post tracheostomy. Also J-tube His abdomen looks soft and on exam he has mild coarse secretions. Has a Abarca catheter with clear urine His pro- Calcitonin is still high but trending down 3.0 down to 1.9 No fever this morning WBC slightly less at 16.3 Patient currently off antibiotic He is getting steroids IV Solu-Medrol which might contribute to his leukocytosis. Also he is on IV Keppra by neurologist 12/14 Patient remains confused in the ICU calm, he had a good night per family member and staff. Tracheostomy in place Patient has occasional coughing spells, patient also developed some partial wound dehiscence in his abdomen, surgery team are aware and are going to evaluate the patient Patient also has positive blood culture from 12/13: Gram-positive cocci in clusters. Patient received one-time dose of IV vancomycin. Patient also had fever 2 days ago, leukocytosis and total elevated pro- Calcitonin. Therefore we are going to consult infectious disease team. As his antibiotic Zosyn was stopped few days ago. Currently patient KVO He has good urine output December 16: ICU. Trach. Congested. Requiring suctioning. No hemodialysis today. Getting G-tube feeding at 50 cc an hour. FiO2 30 and a PEEP of 5. On IV Precedex. Eyes open. Does follow commands. Weakness in the limbs. Spoke to at the bedside. Sputum positive for Klebsiella oxytoca and Pseudomonas aeruginosa. December 17: ICU. On trach. Currently cough with increased secretions requiring suctioning. Adding scopolamine patch. Very much clear secretion. CT scan is showing right upper lobe lung abscess. G-tube feeding at 50 cc an hour. Hemodialysis today. RAYA drain putting out about 140 cc a shift. Serous. Has been midline incision wound dehiscence. Wound VAC was placed on it. Stage II ulcer. Patient is on Precedex drip 0.15 mics. Urine output is good about 6200 cc an hour. Spoke to the at the bedside. Patient currently not stable for transfer to LTAC. No limb movements. PT OT on the case. otherwise awake does follow simple commands by face December 18: ICU. Patient seen this afternoon. Because of pain getting IV Dilaudid. No nasal cannula on room air. Does move about his head. Telemetry shows sinus rhythm. FiO2 30 and a PEEP of 5. Patient started on scopolamine patch yesterday has decreased secretions today. Good urine output. Tube feeding at 60 cc an hour. Wound VAC on incisional would be high since in place. RAYA drain continues to make output. No hemodialysis today December 19: ICU. Patient was seen earlier today. FiO2 30 and a PEEP of 5. Sinus rhythm. Awake. Does follow with eyes. Tube feeding got obstructed tube feedings held for now. Increasing oozing from the incision drainage site. at the bedside. Wound VAC remains in place. Good urine output. Dialysis held today. December 20: ICU. Per nephrology no dialysis today. 1 L fluid bolus given. J- tube was replaced over the wire by Dr. Ewing from surgery. On Precedex 0.6 mcg. FiO2 30 and a PEEP of 5 on the vent. RAYA drain putting out of around 100 cc per shift. at the bedside. Drainage through the abdominal incision wound. CT scan abdomen showed tube placement in the small bowel. Stable large right lower quadrant mass with a fluid level. December 21: ICU. No dialysis today. Patient started on trickle feeding through the J-tube yesterday. He started leaking around the J-tube site. Tube feeding was held. Dressings were placed. Wound VAC remains on the incision. Still having output through the RAYA drain. Patient remains on Precedex 0.4 mcg. FiO2 30 and a PEEP of 5. Sinus rhythm. at the bedside. December 22: ICU. Patient was seen this morning today by me. No dialysis today. Patient's and daughter at the bedside. FiO2 30 and a PEEP of 5. Sinus rhythm. Still having significant secretions through the tracheostomy tube. On Precedex 0.4 mcg. Getting D5W IV fluids. Tube feeding remains to be on hold since yesterday. Still output of RAYA drain. Awaiting input from surgery. Discussed with the and daughter. December 23: ICU. Saw the patient this afternoon. Because of good output of urine dialysis has been discontinued. Telemetry shows sinus rhythm. FiO2 30 and a PEEP of 5. RAYA output has been around 8200 cc an hour. Good urine output. Patient does have very slight movement of the limbs. Wound VAC is putting out about 20 cc per shift. Yesterday when trickle feeding was started patient's J- tube drainage also started leaking around the insertion site. Tube feeding was held. Patient remains on IV Zosyn and Precedex at 0.3 mcg. I had a very lengthy discussion with patient's daughter and at the bedside overall guarded prognosis. Later surgery spoke to the family, and then the nurse called me that family was wanting transferred to [facility]. I spoke to Dr. Irby. They felt they could not offer anything more at this point. I did call the [facility] transfer produce production team member. Gave them the reason for transfer. Later in the ICU nurse informed me through [employer] that [facility] had declined the transfer. Total time spent today about 50 minutes with over 30 minutes of discussion. December 24: ICU. Patient is doing not too well. Sinus rhythm. Drips include norepinephrine and IV propofol. Surgery did put 2 stitches around the J-tube insertion site. Started on TPN today. FiO2 30 PEEP of 5. Patient became hypothermic put on a Manjit hugger. Also hypoglycemic. Decreased urine output. IV fluids increased. Patient's son was at the bedside. I did speak to patient's eldest daughter outside in the waiting room. Did tell the patient doing very poorly. I did try to call the on the phone number she has gone home. Started an IV antifungal today. December 26, 2023 73-year-old white male with history of chronic abdominal pain for the last 8 months has been treated with Protonix 40 mg daily for the last 3 months with no improvement. Patient had a 22 pound weight loss in the last [address] of the abdomen and pelvis 3 weeks ago showed thickening of the antral wall with pathological adenopathy posterior to the stomach suspicious of neoplasm. Today the patient underwent elective upper endoscopy to evaluate further, patient received IV sedation by anesthesia endoscope was inserted into the mouth, esophagus was intubated without any difficulty there was evidence of large amount of liquid and solid food noted in the stomach suggestive of gastric outlet obstruction. Scope could not be advanced through the pylorus, however in the prepyloric area there was a large superficial ulceration identified with multiple biopsies were done from this area. The body cardia and fundus could not adequately visualize because of large amount of retained food in the stomach. Scope was withdrawn back to the stomach and upon careful examination the mucosa of the antrum body and cardia as well as the fundus appeared normal. Procedure was being performed and biopsies were done patient threw up and subsequently became hypoxic there was clearly evidence of witnessed aspiration anesthesia intubated the patient, procedure was terminated, and the patient was transferred to the ICU, this consult was initiated. Patient is now on assist-control rate of 20 tidal volume 500 FiO2 70% PEEP of 10 ABG is pending, earlier ABG showed profound hypoxia patient is on propofol at 50 mcg/kg/min, next ABG is pending. Chest x-ray showed chronic changes without evidence of acute pulmonary disease. 12/27/2023 Patient is seen and evaluated with family at bedside; remains in the ICU intubated and mechanically ventilated. - ABG showed a pO2 of 99 pCO2 31 pH of 7.44. -- Remains on Eraxis daptomycin and Zosyn patient is intermittently requiring Dilaudid, Ativan does not seem to help his agitation and restlessness. -- Continues to have leakage around the jejunostomy tube, and patient is undergoing the J-tube exchange today. Family is at bedside, seems to be quite anxious about his overall condition, and I explained to the that we are doing the best we can considering his critical illness situation and critical illness polyneuropathy. Patient is profoundly weak, and weaning the patient from mechanical ventilation is almost impossible. At least not at this point yet WBC count is 10.9 hemoglobin is 8.1 basic metabolic profile is normal BUN is 46 creatinine 1.90 patient has been off hemodialysis since the . Chest x- ray continues to show stable findings with right upper lobe opacity and right lower lobe opacity and possibly a small right-sided pleural effusion ----Continue ventilatory support, now on IMV mode rate of 16 with pressure support of 14 Continue Precedex and use Dilaudid 0.5 mg every 2-3 hours as needed. Nutritional support patient is now on TPN, Possible J-tube changed today for J-tube malfunction Continue antibiotics including daptomycin and Zosyn, Eraxis was added by infectious disease 12/28/2023 the patient is seen and evaluated in room at bedside; continues to be afebrile, the patient is on the ventilator through the trach FiO2 is currently stable at 30% no significant pleural effusion clinically patient on requiring any pressor support still having drainage around his jejunostomy tube patient dialysis catheter has been discontinued. Patient white count normalized to 7.6, creatinine is 1.51 patient with pneumonia with a sputum showing Citrobacter and Pseudomonas aeruginosa, the patient sputum repeat is still growing Citrobacter and Pseudom onas sensitive to the Pseudomonas is pending continue with Zosyn -patient did have a positive blood culture with staph epi that was oxacillin resistant as the patient did have a PICC line and the dialysis catheter he is on daptomycin repeat blood culture currently growing oxacillin sensitive staph epi, the patient dialysis catheter has been discontinued Has been sent for the culture -patient also have significant excoriation around his jejunostomy tube site which is still leaking Eraxis was added which will be continued as the patient fever pattern has improved and the patient white count has normalized once again discussed with the nursing staff to apply Triad cream which was discussed yest akhil but not applied and monitor clinical course closely 12/29/2023 Patient is seen and evaluated with family members at bedside; remains intubated and mechanically ventilated -- ABG showed a pO2 of 105 pCO2 31 pH of 7.45. Remains on Precedex; multiple antibiotics and antifungal including Eraxis daptomycin and Zosyn. -- chest x-ray is showing improvement in his right upper lobe airspace disease/pulmonary abscess. Right lower lobe seems about the same with chronic opacity and possibly some small right-sided pleural effusion. --Family is at bedside, patient is arousable but does not follow any instructions. Gets extremely restless and agitated easily hence patient is receiving Dilaudid which seems to be working much better for this patient than benzodiazepines --possibly transfer the patient to a select care specialty. 12/30/2023 Evaluated in follow-up in the intensive care unit. He remains on the mechanical ventilator. Status post tracheostomy. There has been a decrease in the amount of leakage around the J-tube site he continues on a gravity flow. TPN is infusing tube feedings remain on hold at this time. No bowel movement reported for the last 5 days. X-ray today reveals extensive pleural parenchymal opacities throughout the right with at least a moderate pleural effusion. Mild patchy densities left mid and lower lung are also similar. Blood work reveals a white blood cell count 11.5, hemoglobin 8.1, platelet count of 78, sodium 142, potassium 4.2, BUN of 42, creatinine of 1.22, Phos of 2.3, magnesium 1.9. Patient continues on IV anidulafungin IV Zerbaxa IV daptomycin. Patient is currently sedated with propofol and also Precedex which is currently on hold at this time. December 31, 2023: ICU. Patient continues to do poorly. On propofol 35 mics. Also getting IV Dilaudid and IV Ativan.. Telemetry shows sinus rhythm. J-tube feeding has been discontinued. Significant output through the Abarca bag and around the G-tube site. Patient also putting out through the RAYA drain on the right side. Getting TPN and lipids. Patient is antimicrobial include iv aniedulefungin, IV ceftolozane/tazobactam, IV daptomycin Advance care planning [October 31, 2023] I met with patient's at the bedside. Went through in detail with patient is overall very poor clinical status. Chances of any meaningful recovery next to minimal. I also did mention that patient in my opinion was not stable to go to chronic ventilator setting. I suggested comfort care/hospice. I did not feel and why all honesty that patient is benefiting any further from the treatment we are giving him in fact causing probably more suffering. I also spoke to patient's daughter outside in the waiting room. Total time spent about 50 minutes with over 30 minutes of discussion. Later I called Dr. Luther JIMENEZ the battery assembler dry cell after he received a text that family was expressing that some physician expressed he was doing better and giving hope. I spoke to nurse Lemos in the evening and she and Dr. JIMENEZ did go and talk to patient's family at the bedside later. January 01, 2024: ICU. FiO2 30 and a PEEP of 5. Continues to have increased drainage at the G-tube site. Wound VAC in place over the incision. RAYA drain continues to put out excretions. Good urine output. Drips include IV propofol at 20 mics, also getting IV Ativan and Dilaudid. Patient also keeping getting TPN lipids. Spoke to the patient's at the bedside. No further questions. I did speak to Dr. Irby from general surgery. Hence it is both our impression again that changing the tube will not make any difference to the bigger picture. And probably futile. Dr. Irby will be speaking to the family today. David from social contact worker did ask about of family meeting. I did reiterate that I spoken at length to the a few times and also the daughter. Dr. Jimenez also spoke to the and Dr. Irby will be speaking with the today. Prognosis remains to be very poor. I did tell the in my opinion probably the patient is not r a candidate for long-term facility. Will battery assembler dry cell Dr. Jimenez determine if the patient is a candidate for long-term chronic ventilator facility. January 02, 2024: ICU. FiO2 30 PEEP of 5. Telemetry sinus rhythm. Atilio inc lude propofol at 20 mics. Patient getting TPN lipids. Receiving 1 unit of packed red blood cell. Patient was having a breakdown around the tracheostomy stoma site. With a cuff leak. G-tube site is continues to have increasing output. Wound VAC in place. RAYA drains also having increasing output. Patient sister and daughter from [place] from out of town. Earlier they spoke at length with Dr. alford from general surgery. Prognosis remains poor. January 03, 2024: ICU. FiO2 30 PEEP of 5. On propofol. 50 mics. Getting TPN lipids. Sinus rhythm. Wound VAC in place. Drainage around the j-tube site. RAYA drain continues to drain. Patient somewhat sedated. at the bedside. Later social contact worker David inform me that the surgical team Dr. Irby has suggested possible you have [facility], to which family is trying to obtain transferred to. Per Dr. Jimenez note patient has been decline by long-term care twice. Prognosis remains poor. at the bedside. Had no questions. Brother Nathan is present. January 04, 2024: ICU. FiO2 30 PEEP of 5. Propofol was held this morning. Getting TPN lipids. Sinus rhythm. Wound VAC remains in place. Continues to have drainage around the J-tube. RAYA drain continues to have output. at the bedside. She had no questions. Antibiotics in place. January 05, 2024: ICU. FiO2 30 PEEP of 5. Audibly sounding congested. Getting TPN lipids. Sinus rhythm. Wound VAC in place. Drainage around J-tube site. RAYA output continues. No family at bedside. Getting antibiotics. Lethargic January 06, 2024: ICU. FiO2 30 PEEP of 5. Patient is been off propofol since yesterday. Does move his head about. Try to open his eyes sometimes. Sinus rhythm. Blood pressure is running high yesterday. Started on Cleviprex. Hydralazine is being added. Continue to get TPN lipids. J-tube site remains excoriated. Wound VAC in place. RAYA output about 40 to 50 cc is a 12-hour shift. Patient elder daughter at the bedside. Eraxis was discontinued on January 02. Daptomycin is being discontinued by ID. Continue ceftolo'szone. CT abdomen pelvis done today: 3.1 cm organized fluid collection within the rectovesicular space concerning for abscess. No change in right upper lung 4.9 cm fluid collection with a fluid level. For possible pulmonary abscess. Moderate size right lung base multiloculated hydropneumothorax possibly abscess. Additional areas of air bronchograms. January 07, 2024: ICU. FiO2 30 PEEP of 5. Patient was taken down for pigtail drainage of the right lung abscess. About 200 cc of pus was obtained. Nurse informed me when they told him about for the procedure a lot of pus gushed out from the tracheostomy site. Dr. Love at the bedside did a bronchoscopy. Some pus was aspirated. No obvious fistula was noted. Patient is being back on Cleviprex drip. TPN lipids. January 08, 2024: ICU. Patient was having severe bouts of coughing. Unable to maintain ventilation. Patient was put on Nimbex drip and propofol drip. TPN lipids continue. Has a right chest wall pigtail catheter 90 cc output in 12- hour shift. Drainage from around the J-tube site. RAYA drain continues Ahmet to have an output. Abdominal wound is high since with the wound VAC in place. Patient sedated. January 09, 2024: ICU. Patient is off propofol and Cleviprex. Does open eyes. RAYA drain. About 40 cc last 24 hours. J-tube site continues to have increased output. Requiring dressing change every so often. Wound VAC in place. Patient getting Dilaudid and Ativan. Telemetry shows sinus rhythm. 40 cc out of the pi gtail drainage. Patient started on ciprofloxacin and tobramycin. Remains on TPN and lipids. Patient's eldest daughter and at the bedside. No new questions. January 10, 2024: ICU. Overnight patient had become asynchronous. Had to be put on Precedex drip. Hemoglobin dropped down to 6.6. Monitor blood ordered. RAYA output about 100 cc last 24 hours. Wound VAC remains in place. TPN lipid continues. Patient also has a leak in the right pigtail catheter. Sinus rhythm. Continues to have increased secretion at the G-tube site. Ventilator FiO2 30 and a PEEP of 5. at the bedside. Had no further questions. January 11, 2024: ICU. Patient remains on IV Precedex. TPN.'s RAYA output over 30 cc last 24 hours. Wound VAC remains in place. Sinus rhythm. FiO2 30 PEEP of 5. Pigtail with very little output. Spoke to Dr. Love who only spoke to the patient's at length. Gnosis poor. When I walked in patient's 2 daughters and the present. is very tearful crying hugging the patient. The daughter had no further questions January 12, 2024 Ahmet: ICU. Continues on IV Precedex. Getting TPN lipids. Wound VAC in place. Sensitive. FiO2 30 and a PEEP of 5. Patient's at the bedside. Had no questions. January 13, 2024: ICU. FiO2 30 PEEP of 5. Remains on Precedex 0.8 mg. Eyes open. Sometimes does track with head. Not moving limbs. Some decrease in output from the G-tube site. Wound VAC putting out about 100 cc every 12 hours. RAYA drain about 100 cc every [address] Russ met with the family earlier today. Patient's been made DNR. Telemetry sinus rhythm. Patient's and daughter at bedside. They have no questions January 14, 2024: ICU. FiO2 30. PEEP of 5. Patient is has eyes open and tracking. Urine output about 100 cc an hour. NG site output looks like gastric contents. RAYA site about 50 cc in the last 12 hours. Telemetry sinus rhythm. and daughter have asked for hospice consultation for informational visit. They want to use [facility]. I sat with them and the nurse and a full expression of the hospice involved involved. Several questions answered. Daughter does express that she would like to take the patient home. The other sibling will be coming on from [place] on Saturday. They want to hold on at least until then. January 15, 2024: ICU. FiO2 30 and a PEEP of 5. Getting CPAP today. Asynchronous better. J-tube site continues to have increase secretions. Sinus rhythm. Awake. Does move his head possibly to command. Remains on Precedex. Getting Dilaudid. Fair urine output. Has a air leak in the pigtail. Minimal output through the chest tube. RAYA drain continues to have an output. at the bedside. January 16, 2024: ICU. On the ventilator FiO2 30 and a PEEP of 5. Pressure support mode. Wound VAC remains in place. J-tube site continues to have output. RAYA drain putting out output. Remains on pressors Precedex and getting Dilaudid. Antibiotics per ID. Patient being planned to go home tomorrow with home hospice. at the bedside. Had no further questions. Being followed by social contact worker David and home hospice team from [facility] -Hospice arranging for transport with portable ventilator, to home with family -Antibiotics as discussed with ID will be discontinued -Wound VAC to be removed prior to discharge per surgery -RAYA drain to remain in place with dressing changes at the J-tube site. Dressing changes at the incision site per surgery. -TPN lipids will be discontinued prior to discharge -Patient to be taken off Precedex by r battery assembler dry cell January 17, 2024: ICU: Patient was seen and examined today, family at bedside, initially plan was patient to go home with hospice today however patient and family/ change their mind, and wanted to continue current treatment. Patient is currently on pressure control mode of mechanical ventilation unchanged as compared to yester day, remains on Precedex 1.4 mcg/kg/h, remains on TPN, unable to use his J-tube. Patient intermittently requiring Dilaudid. Currently on antibiotics Cipro and fluconazole, infectious disease added tobramycin today. ICU following. Infectious disease following. Nephrology following. General surgery on board and following. 01/17 pt remain in the icu, family at bed side, he is on mechanical ventilation still, with pulmonary critical care team help in the vent management he is also getting TPN , on broad spectrum antibiotic with tobramycin , fluconazole, and cipro , sputum culture growing pseudomonas 01/18 Patient remains in the ICU He is on mechanical ventilation yesterday tracheostomy He got agitation at times and currently he is on a Precedex, trying now to wean him off Precedex so patient can go to LTAC upon discharge. Also patient getting TPN. He is on broad-spectrum IV antibiotics with Cipro, fluconazole and tobramycin for his pneumonia, sepsis and bacteremia Objective - Vital Signs Vital signs: Vital Signs Temp 97.9 F 01/19/24 20:00 Pulse 73 01/19/24 20:00 Resp 24 01/19/24 20:00 BP 122/77 01/19/24 20:00 Pulse Ox 98 01/19/24 20:00 FiO2 30 01/19/24 20:00 Intake & Output 01/19/24 01/19/24 01/20/24 06:59 18:59 06:59 Intake Total 3138.457 2123.554 280 Output Total 1565 1435 280 Balance 1573.457 688.554 0 Weight 101 kg Intake: IV 1742 1460 280 0.9 Normal Saline @ KVO 120 20 Ciprofloxacin/Dextrose 400 Pmx 400 mg In Dextrose/ Water 1 200ml.bag @ 200 mls/hr IVPB Q8H [facility] Rx#: [id number] Fat Emulsion 20% 250 ml 42 In Empty Bag 1 bag @ 21 mls/hr IV [id number] [facility] Rx#:[id number] Sodium Chloride 0.9% 1, 450 100 000 ml @ 50 mls/hr IV . Q20H [facility] Rx#:[id number] TPN 1080 990 180 Tobramycin Sulfate 600 mg 100 In Sodium Chloride 0.9% 100 ml @ 115 mls/hr IVPB Q48H [facility] Rx#:[id number] Intake, IV Titration 1396.457 663.554 Amount Ciprofloxacin/Dextrose 200 Pmx 400 mg In Dextrose/ Water 1 200ml.bag @ 200 mls/hr IVPB Q8H [facility] Rx#: [id number] Dexmedetomidine/0.9% NaCl 154.457 363.554 (Pmx) 400 mcg In Empty Bag 1 bag @ 0.2 MCG/KG/HR 5.2 mls/hr IV .[id number] [facility] Rx#:[id number] Fluconazole in NaCl,Iso- 100 Osm 200 mg In Saline 1 100ml.bag @ 100 mls/hr IVPB DAILY [facility] Rx#: [id number] Magnesium Sulfate-D5w Pmx 100 1 gm In Dextrose/Water 1 100ml.bag @ 100 mls/hr IVPB Q1H [facility] Rx#: [id number] Mvi, Adult No.4 with Vit 1042 K 10 ml Trace (Conc-1Ml/ Dose) 1 ml Sodium Acetate 30 meq Magnesium Sulfate gm 1 gm Calcium Gluconate 0.5 gm Potassium Phosphate 9 mmol Potassium Acetate 12 meq In Amino Acids 5 %/ Dextrose 20 % 1,000 ml @ 90 mls/hr IV .BY DURATION [facility] Rx#:[id number] Potassium Chloride 20 meq 100 In Water For Injection 1 100ml.bag @ 50 mls/hr IVPB ONCE [facility] Rx#: [id number] Output: Chest Tube Drainage 60 20 Chest Tube Right 60 20 Drainage 90 0 0 Medial Abdomen 0 0 0 Right Upper Posterior 90 Chest Urine 1475 1375 260 Other: Voiding Method Indwelling Catheter Indwelling Catheter Indwelling Catheter ABP, PAP, CO, CI - Last Documented Arterial Blood Pressure 173/76 - Exam -GENERAL: The patient is on mechican ventilation HEENT: Pupils are round and equally reacting to light. EOMI. No scleral icterus. No conjunctival pallor. Normocephalic, atraumatic. No pharyngeal erythema. No thyromegaly. CARDIOVASCULAR: S1 and S2 present. No murmurs, rubs, or gallops. - PULMONARY: Chest is clear to auscultation, no wheezing , no crackles. Status post tracheostomy tube - ABDOMEN: Soft, nontender, nondistended, normoactive bowel sounds. No palpable organomegaly. S/p J-tube in place MUSCULOSKELETAL: No joint swelling or deformity. EXTREMITIES: No cyanosis, clubbing, or pedal edema. NEUROLOGICAL: Gross neurological examination did not reveal any focal deficits. SKIN: No rashes. no petechiae. - Labs CBC & Chem 7: 01/20/24 05:56 01/20/24 05:56 Labs: Abnormal Lab Results - Last 24 Hours (Table) 01/18/24 01/19/24 01/19/24 Range/Units 23:46 05:38 05:51 Sodium 129 L (137-145) mmol/L Carbon Dioxide 20 L (22-30) mmol/L BUN 31 H (9-20) mg/dL Creatinine 0.64 L (0.66-1.25) mg/dL Glucose 164 H (74-99) mg/dL POC Glucose (mg/dL) 187 H 181 H (70-110) mg/dL Calcium 7.2 L (8.4-10.2) mg/dL Alkaline Phosphatase 177 H (38-126) U/L Total Protein 6.0 L (6.3-8.2) g/dL Albumin 2.0 L (3.5-5.0) g/dL 01/19/24 01/19/24 Range/Units 11:22 17:36 Sodium (137-145) mmol/L Carbon Dioxide (22-30) mmol/L BUN (9-20) mg/dL Creatinine (0.66-1.25) mg/dL Glucose (74-99) mg/dL POC Glucose (mg/dL) 163 H 144 H (70-110) mg/dL Calcium (8.4-10.2) mg/dL Alkaline Phosphatase (38-126) U/L Total Protein (6.3-8.2) g/dL Albumin (3.5-5.0) g/dL Assessment and Plan Assessment: -Aspiration and gram-negative bacterial pneumonia a bilateral initially from retained gastric contents mostly food and liquids, causing acute hypoxic respiratory failure: On presentation: Subsequent bacterial pneumonia sputum culture November 25: Citrobacter freundii, Pseudomonas aeruginosa. December 13: Klebsiella oxytoca, Pseudomonas aeruginosa IV meropenem-, IV Zosyn.IV ceftolozane/tazobactam, IV daptomycin, tobramycin- all discontinued Currently getting IV ciprofloxacin. , ceftolozane-tazobactam. -Patient became asynchronous with the ventilator. On Precedex drip -Breakdown of tracheostomy stoma site. Dressing in place Being followed by battery assembler dry cell -Sepsis with septicemia from above Patient received multiple antibiotics -Right l lung abscess, pigtail catheter placed January 07, 2024. Initially about 200 cc of pus obtained. During the procedure large amount of pus poured out of the tracheostomy site when patient was rolled on the left side. Status post bronchoscopy with some lavage on 01/07/2024 - lung abscess larger 1 on the right side-patient cultures are growing Pseudomonas and Klebsiella oxytoca: Slow to respond , Received other antibiotics. Currently on Floxin, Diflucan and tobramycin. -Acute pulmonary edema and fluid overload from hypoalbuminemic state and fluids from IV.:: Has been getting Lasix and dialysis: Both held -Altered mentation. Possibly encephalopathy. Could be delirium.: Proving CT brain [December 06] nothing acute Neurology following EEG-evidence of generalized cerebral dysfunction and sporadic intermittent higher amplitude sharply contoured waves mainly bifrontal. Showing cortical irritability. Keppra was started on December 07 -Critical care poly- Pedro neuropathy: Slow to respond PT OT -Gallstones, asymptomatic -Small l bowel perforation at site of jejunostomy tube tip with balloon..: Portion of small bowel resected. On November 24. New J-tube was placed.- drainage to gravity:-Now discontinued December 19: J-tube blocked. J-tube replaced on December 20 over wire December 21: Leaking around the J-tube site. Feeding held December 23: J feeding was started yesterday evening but again started leaking increasingly around the J-tube site-feeding held again December 24: J-tube feeding has been held. Patient is currently having increased drainage from the J-tube site -Acute kidney injury. Possible ATN from hypotensive shock: Resolved Renal ultrasound unremarkable. Started on renal replacement therapy on ptember . Last hemodialysis on December 17. Being followed by an nephrology. Good urine output. -Nutrition Jejunostomy tube placed November [address] Ewing Received TPN-this was discontinued. TPN lipids restarted on December 24 -Lung abscess, not improving Antibiotics to continue. Pulmonary and ID following On ciprofloxacin, Diflucan and tobramycin. -Midline abdominal incision wound dehiscence Wound VAC placed -Acute recurrent atrial fibrillation-converted to sinus rhythm Received IV amiodarone. Cardiology following Lopressor -Acute hypoxic respiratory failure from aspiration pneumonia, status post ventilator assisted: Reintubated November 25. FiO2 35 PEEP of 5 Tracheostomy tube-by Dr. Zepeda on December 09 -Septic shock, recovered -Hypertension, recurrent Had received Cleviprex. Hydralazine added -Intermittent hypotension: Corrected Intermittent use of Levophed. 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 Also anemia of blood draw. Iron deficiency anemia Received total of 6 units of blood IV iron. -Severe thrombocytopenia. Would consider coagulation disorder secondary to infection., In the setting of underlying lymphoma.: Fluctuating with infection Hematology following. -Acute blood loss anemia, -Sacral stage II decub ulcer Dressing in place -Hypokalemia, multiple causes -Hypoglycemia -GERD PPI -Acute diarrhea secondary to tube feeding.: Resolved C. difficile ruled out. -Large superficial gastric antral ulceration involving the gastric antrum extending into the pylorus with gastric outlet obstruction. 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 -DNR made on January 12 On Precedex. IV ciprofloxacin and Diflucan, started on tobramycin by infectious disease.
--- NOTE | 2024-01-20 12:08 | P.PN ---
Subjective Progress Note Date: 01/20/24 Principal diagnosis: Abdominal pain. This is a 73-year-old white male with history of chronic abdominal pain for the last 8 months has been treated with Protonix 40 mg daily for the last 3 months with no improvement. Patient had a 22 pound weight loss in the last [address] of the abdomen and pelvis 3 weeks ago showed thickening of the antral wall with pathological adenopathy posterior to the stomach suspicious of neoplasm. Today the patient underwent elective upper endoscopy to evaluate further, patient received IV sedation by anesthesia endoscope was inserted into the mouth, esophagus was intubated without any difficulty there was evidence of large amount of liquid and solid food noted in the stomach suggestive of gastric outlet obstruction. Scope could not be advanced through the pylorus, however in the prepyloric area there was a large superficial ulceration identified with multiple biopsies were done from this area. The body cardia and fundus could not adequately visualize because of large amount of retained food in the stomach. Scope was withdrawn back to the stomach and upon careful examination the mucosa of the antrum body and cardia as well as the fundus appeared normal. Procedure was being performed and biopsies were done patient threw up and subsequently became hypoxic there was clearly evidence of witnessed aspiration anesthesia intubated the patient, procedure was terminated, and the patient was transferred to the ICU, this consult was initiated. Patient is now on assist- control rate of 20 tidal volume 500 FiO2 70% PEEP of 10 ABG is pending, earlier ABG showed profound hypoxia patient is on propofol at 50 mcg/kg/min, next ABG is pending. Chest x-ray showed chronic changes without evidence of acute pulmonary disease. Patient was seen and examined today on 11/13/2023, remains in the ICU, intubated mechanically ventilated, on assist-control rate of 20 tidal volume 500 FiO2 50% and PEEP of 10 ABG showed a pO2 of 143 pCO2 47 pH of 7.28 hence PEEP was cut down to 6, and increased rate to 22. Patient is still requiring IV fluid at 100 cc/h/LR. Requiring norepinephrine at 0.08 mcg/kg/min he is also on propofol at 50 mg/kg/min antibiotics arce patient is receiving Zosyn. Chest x-ray is showing worsening infiltrates specially in the left lung. This could be related to aspiration pneumonia. Patient had witnessed aspiration during endoscopy/upper endoscopy.WBC count is 14 hemoglobin 7.6 basic metabolic profile is normal BUN is 26 creatinine 1.57 obviously the patient sustained some acute kidney injury baseline creatinine 0.86 patient had received fluids over the last 24 hours, remains on fluids at 100 cc/h Patient with seen and examined today on 11/14/2023, patient remains in the ICU, intubated and mechanically ventilated. Failed weaning trial yesterday and he became quite agitated and desaturated once he went off propofol. Had to be placed back on assist-control mode of mechanical ventilation and sedation. Today the patient is on assist-control rate of 22 tidal volume 500 FiO2 50% PEEP of 6. ABG showed a pO2 of 123 pCO2 51 pH of 7.32, and I cut down his FiO2 down to 45%, patient is receiving a unit of packed RBCs for hemoglobin of 6.9 today. Patient had an episode of A-fib RVR at 3 AM in the morning, seen by cardiology, and recommended patient goes on amiodarone. Still requiring norepinephrine at 0.05 mg/kg/min, he is on LR at 100 cc/h propofol at 50 mg/kg/min. Remains empirically on Zosyn for aspiration pneumonia. My plan today is transitioning the patient to Precedex, hopefully discontinue propofol, and at least give the patient a decent weaning trial or at least check weaning parameters before we proceed to weaning trial. Chest x-ray continues to show evidence of pneumonia mostly in the left lung and left lower lobe more specifically. Some pulmonary vascular congestion is noted with interstitial edema, small pleural effusion is also noted/left side. WBC count today is 12 hemoglobin 6.9 basic metabolic profile is normal bicarb is 25, BUN is 25 creatinine is improving down to 1.21 from 1.57 yesterday Patient was evaluated today on 11/15/2023, patient remains in the ICU, he was extubated yesterday, and his extubation was relatively uneventful. However the patient continues to have nasogastric tube in place, his pathology report came back showing non-Hodgkin's lymphoma, patient has gastric outlet obstruction, and the recommendation by GI is to consult surgery for a jejunostomy tube which is appropriate. Patient will be seen today by oncology and he will be seen by [facility]. In the meantime patient is comfortable, he is on 5 L nasal cannula he has LR running at 100 cc/h, he is remains on Zosyn for aspiration pneumonia remains on amiodarone which was started by cardiology for atrial fibrillation with RVR, presently in sinus rhythm. Cannot switch him to oral because of the fact that remains n.p.o., patient remains on TPN. WBC count is 10.7 hemoglobin 7.5 electrolytes are normal renal profile is normal, creatinine normalized to 0.96 Patient was evaluated today on 11/16/2023, remains in the ICU, on 5 L nasal cannula remains on amiodarone at 0.5 mg/min remains on LR at 100 cc/h, however his chest x-ray is showing some component of interstitial edema or could be findings related to his recent episode of aspiration/aspiration pneumonia, nonetheless the patient seems to be a bit symptomatic, he has intermittent cough and wheezing, I am recommending Lasix 40 mg IV push, cut down his IV fluid to 50 cc/h, continue Zosyn, patient will be placed on DuoNeb updrafts and on Solu- Medrol. Patient is scheduled to have jejunostomy-tube placement today. WBC count is 13 hemoglobin 7.7 basic metabolic profile is normal and renal profile is normal Patient was evaluated today on 11/17/2023, patient underwent uneventful placement of a jejunostomy tube yesterday, in the ICU on 5 L, patient is relatively stable, not in any distress, patient continues to have nasogastric tube in place although he did have a J-tube placed yesterday. Patient was seen by oncology for his non-Hodgkin's lymphoma involving the gastric outlet. Today's x-ray showed evidence of pneumonia/bilateral interstitial infiltrate/edema patient was given a dose of Lasix, I reminded the patient had an aspiration episode which was significant. And he required intubation mechanical ventilation for a few days.WBC count today is 9.1 hemoglobin 7.9 electrolytes are normal renal profile is normal hence I plan to transfer the patient out of the ICU to a cardiac floor. And hopefully discharge planning in the next 2 days for The patient was seen today November 18, 2023 in follow-up in the intensive care unit. He is currently sitting up in bed. Awake and alert in no acute distress. He is maintaining O2 saturations in the 90s on 5 L/min per nasal cannula. Glucose 177. Remains on DuoNeb inhalations and Solu-Medrol. Antibiotics in the form of Zosyn. He has a J-tube in place. He was initiated on vital AF 1.2 at 10 mL an hour with a goal of 82 mL/h The patient is seen today November 19, 2023 in follow-up in the intensive care unit. He is a regular medical floor overflow patient. He is currently sitting up in a chair. Awake and alert in no acute distress. He is maintaining O2 saturations in the 90s on 5 L/min per nasal cannula. No IV fluids. He denies any worsening shortness of breath, cough or congestion. He is having some issues with diarrhea. He remains on Zosyn. He is receiving vital AF at 55 mL/h with a goal of 82 mL/h. Glucose 161. Solu-Medrol, DuoNeb inhalations. The patient is seen today November 20, 2023 in follow-up on the regular medical floor. He is currently up in a chair at the bedside. Awake and alert in no acute distress. Denies any worsening shortness of breath, cough or congestion. He is maintaining O2 saturation in the 90s on 3 L/min per nasal cannula. He continues on Zosyn. Continues on bronchodilators and steroids. White count 12.3. Hemoglobin 9.0. Platelets 258. Glucose 168. He is not tolerating his tube feeds as he has developed diarrhea. C. difficile screen was negative. Abdominal series revealed cardiomegaly with left basilar acute infiltrate and/or atelectasis. Overall nonspecific bowel gas pattern. A small bowel obstruction needs to be considered. Progress note dated November 21, 2023. The patient is seen in room 517. The patient is currently on 3 L of oxygen. He continues on Zosyn. His biggest complaint has been abdominal discomfort and diarrhea. He did have a CT scan of the abdomen and pelvis. Current laboratory data includes a white count of 14.4, hemoglobin 8.8, hematocrit 28.7, and platelet count 229,000. Sodium 139, potassium 4.1, chlorides 103, CO2 30, BUN 42, creatinine 0.94. Glucose is 158. Calcium is 8.5. Progress note dated November 22, 2023. 73-year-old male seen in room 517. He currently is on 2 L of oxygen. Room air saturation was 89%. Chest CT shows bilateral patchy infiltrates. He continues on Zosyn. He is still not taking anything by mouth. No new laboratory data today other than a glucose of 138. Gram stain was negative. Progress note dated November 23, 2023. 73-year-old male seen in room 517. He is resting comfortably without com plaints. He continues on saline at 10 cc an hour, tube feedings with Pivot at 20 cc an hour, Zosyn, and 2 L by nasal cannula. He has had an uneventful night. Laboratory data today includes a white count 14.5, hemoglobin 9.7, hematocrit 31.4, and a platelet count of 242,000. Sodium 138, potassium 3.7, chlorides 106, CO2 26, BUN 39, creatinine 0.95. Glucose is 181. Calcium is 8.5. Sputum sampling was negative. Progress note dated November 24, 2023. 73-year-old male who is seen in room 517. The patient has been having significant abdominal discomfort, and went for a evaluation, ordered by surgery today, to determine whether or not the feeding tube, was in proper position, and whether or not there is anything acutely going on in the abdomen. He had been having diarrhea. He is on 3 L of oxygen. He has been here for 12 days. This is a patient, that had a prior EGD, aspirated, because of gastric outlet obstruction, and was diagnosis of non-Hodgkin's lymphoma. He is currently on Zosyn, DuoNebs, and Solu-Medrol. He has been NPO. Chest x-ray showed a left lower lobe infiltrate. Abdominal x-ray showed multiple air-fluid levels. CT of the abdomen showed multiple dilated small bowel loops, consistent with obstruction, pneumoperitoneum, ascites, and cholelithiasis. White count was 14.1, hemoglobin 8.9, hematocrit 29.5, and platelet count was 255,000. Glucose was 143. 11/25/2023, the patient is being seen in the intensive care unit. The patient is critically ill, n.p.o., he has an NG tube in place. Following the NG tube insertion, there was a total of 2.0 L of output and the patient's J-tube was also draining approximately 200 cc over the past 8 hours. Continues to have abdominal pain which is rather diffuse and the patient has direct abdominal tenderness. CAT scan of the abdomen was noted and was consistent with small bowel obstruction. The patient has a stomach that was inflated and in the same time there were multiple loops of small bowel distended with fluid. This extended to the pelvis. J-tube with contrast nondilated small bowel loops within the mid abdomen. Additional loops of small bowel were seen that was dilated. There was some contrast in the right lower quadrant and contrast was also in the cecum. No transition point was identified. The dilated loops of the bowel appeared to be in the proximal jejunum and distal to the duodenum. General surgery is on the case the patient will be taken to the operating room for another exploratory laparotomy. Noted the CAT scan of the abdomen also showed pneumoperitoneum and small amount of ascites and cholelithiasis. Hemodynamically, the patient is currently on normal saline at rate of 75 cc an hour. He is hypotensive and is going to be started on pressors. He is on 4 L of oxygen by nasal cannula. He also has sustained acute kidney injury. Blood work from today shows a rise in the creatinine which is currently up to 2.5 with a BUN of 57. Serum bicarb is at 14 with an anion gap of 11. The patient WBC count is at 8.2 with a hemoglobin of 12.3 and a platelet count of 188. Chest x- ray from this morning is showing a right-sided port and a stable left lung airspace disease and an NG tube being in place. The patient remains on IV Zosyn. The patient is receiving Dilaudid for pain control. The patient remains on IV Solu-Medrol 60 mg every 6 hours. It was noted that the patient's surgical wound over the port has dehisced and there is some serous drainage and erythema at the incision site. Awake and alert and communicating. Family at the bedside. No apparent signs of respiratory distress at this point. 11/26/2023, the patient is being seen in follow-up. Events from yesterday was noted and the patient was taken to the operating room for exploratory laparotomy. The patient was found to have large amount of free fluid noted in the abdomen and there was significant contamination. There was perforation of the small bowel with the balloon of the previously inserted jejunostomy tube penetrating through the perforation. As such, the tube was removed, abdominal washout was done. Small bowel resection was done and the patient had a nodular jejunostomy tube inserted. Postop, the patient was extubated he was unable to tolerate extubation and the patient was kept intubated on mechanical ventilator and he was brought back to the intensive care unit. He is currently postop day #1 following his small bowel resection. Abdominal surgical wound site is dry c lean and intact. This morning, the patient remains sedated on propofol which is currently running at 35 mcg/kg/min. He is on assist-control mode of mechanical ventilation at rate of 28, tidal volume of 550, FiO2 of 60% with a PEEP of 5. Blood gas from today shows a pH of 7.35 with a pCO2 44 and pO2 of 88. Chest x- ray shows adequate positioning of the orotracheal tube. The patient has a Mediport on the right and a subclavian triple-lumen catheter on the left and the patient has persistent bilateral pleural effusion and infiltrates in lung base bilaterally. Hemodynamically, the patient remains in shock. He has been on high-dose norepinephrine which is currently running at 0.28 mcg/kg/min and the patient is also on vasopressin at 0.03 units an hour. He is IV fluids are in the form of bicarb infusion running at rate of 150 cc an hour. He is in sinus tachycardia. NG tube output has been 250 cc over the past 8 hours and the output from the J-tube is minimal at this point in time. Urine output is quite diminished as the patient has also sustained acute kidney injury. Overall fluid balance is +4.9 L over the past 24 hours. The patient's white cell count of 5.7 with a hemoglobin 9.9 and platelet count of 172. BUN is 72 with a creatinine of 2.8 and sodium levels at 143. The calcium level is at 6.5. LFTs are normal. Triglyceride level is at 315. On 11/27/2023, the patient remains critically ill. Remains intubated and on mechanical ventilator, still awaiting shock which is essentially septic shock. Remains on propofol which is running at 50 mcg/kg/min. Remains on the mechanical ventilator, assist-control mode with rate of 28, tidal volume of 550 with an FiO2 of 60% with a PEEP of 5. Blood gas shows a pH of 7.29 with a pCO2 of 47 and pO2 of 78. The patient had a follow-up chest x-ray that showed lower lobe consolidation slightly worse on the right and the orotracheal tube is in a good location. Urine output is diminished in the order of 5 to 10 cc an hour and the patient is also developing progressive worsening renal function. Remains on normal citrate of 150 cc an hour and the patient was started on TPN which is running at 30 cc an hour. He has a triple-lumen catheter in his left subclavian. Overall fluid balance over the past 24 hours is +3.9 L. Output from the NG tube and the J-tube is minimal. Hemodynamically, he is hypotensive and norepinephrine running at 0.45 mcg/kg/min. Vasopressin is a physiologic dose. He received amiodarone and he remains on maintenance amiodarone of 0.5 mg/min and the patient continues to be in atrial fibrillation and is having episodes of tachycardia. The white cell count is at 13, hemoglobin 9.4 platelet count is pending. The patient's BUN is 83 with a creatinine of 3.7. Sodium is at 140 with a potassium level of 5.5 dropped down to 4.4 as the sample was hemolyzed. LFTs are normal. Abdominal wound is dry clean and intact. RAYA drainage is essentially serous at this point in time. 11/28/2023, the patient is being seen for a follow-up. The patient remains intubated on mechanical ventilator. This morning, the patient tolerated propofol drip running at 50 mcg/kg/min. The patient is on mechanical ventilator assist-control mode with rate of 28, tidal volume of 550, FiO2 55% with a PEEP of 5. Chest x-ray shows stable findings with lower lobe consolidations bilaterally. Blood gas shows a pH of 7.32 with a pCO2 38 and pO2 90. Neuropathy has improved and the patient is producing approximately 30 cc an hour and the overall input output balance is +3.3 L over the past 24 hours. The patient is still on pressors although his pressor requirements have improved since yesterday. He is on norepinephrine which is running at 0.05 mcg/kg/min and vasopressin physiologic dose. Also, the patient on amiodarone drip regarding his chronic ongoing atrial fibrillation. Amiodarone drip is running at 0.5 mg/min. Nevertheless, the rate is under much better control. Noted the patient was given a dose of digoxin 0.5 mg IV yesterday which helped with rate control. Remains on normal citrate of 150 cc an hour. Remains on TPN at 40 cc an hour. Output from the J-tube is fecal. Output from the NG tube is more gastric. Surgical wound site is dry clean and intact. Sputum Gram stain and culture showing Pseudomonas and Citrobacter. Note that the Citrobacter was intermediate resistance to Zosyn. This will be discussed further with infectious disease. Blood cultures are still pending for now. They have negative based on the most recent check. Blood work from today shows WBC count 11.2, hemoglobin 7.9 and platelet count of 46. Sodium is at 140, potassium is at 4.3, chloride is 114 with a bicarb of 18. He has 93 and the creatinine is 4.8. Serum random vancomycin level is at 25.7. On 11/29/2023, the patient is being seen for a follow-up. Remains intubated on the mechanical ventilator. The patient sedated on propofol which is running at 35 mcg/kg/min. Synchronous with mechanical ventilator. On today's evaluation, he is on assist-control mode with rate of 28, tidal volume of 550, FiO2 55% with a PEEP of 5. Chest x-ray shows lower lobe consolidation bilaterally worse on th e right and the orotracheal tube is in good location. The blood gas showed a pH of 7.34 with a pCO2 of 35 and a pO2 of 84. No significant orotracheal secretions. Hemodynamically improved compared to yesterday. In fact, the patient is on minimal norepinephrine that was discontinued earlier this morning. The patient has converted to normal sinus rhythm. Remains on amiodarone at 0.5 mg/min. Overall fluid balance over the past 24 hours is 2.4 L positive. Urine output has been adequate and the patient is currently on IV Lasix. Nevertheless, the patient has developed progressive worsening renal function. Creatinine is up to 5.3 on today's evaluation with a potassium level of 4.4. Serum bicarb is at 18 with an anion gap of 9. WBC count is at 8.1 with a hemoglobin of 7 and a platelet count of 32 which has dropped compared to earlier evaluation. The rest of the coagulation profile was normal from 11/28/2023. Fibrinogen level is slightly elevated. Sputum samples have shown a combination of Citrobacter and Pseudomonas aeruginosa. Based on cultures and sensitivities, the patient will be taken off his IV Zosyn and he will be switched to IV meropenem. Output from the J-tube is fecal. Output from the NG tube is gastric and surgical wound site is dry clean and intact. He is afebrile for now. Hemodynamically, the patient is doing better. He remains on TPN for nutritional support. IV fluids are also running at a rate of 75 cc an hour. Remains on vancomycin. 11/30/2023, the patient is being seen for a follow-up. The patient remains on propofol at 50 mcg/kg/min. Ventilator settings are essentially unchanged. The patient remains on assist-control mode with rate of 18, tidal volume of 400, FiO2 50% with a PEEP of 5. The blood gas showed a pH of 7.37 with a pCO2 of 43 and pO2 of 127. Chest x-ray shows no significant interval change. Patient remains on normal saline at rate of 75 cc an hour and TPN at rate of 35 cc an hour. Fluid balance is positive. Hemodialysis was performed yesterday and the second session of hemodialysis to be done today. The patient's urine output is in the order of 20 to 30 cc an hour. The patient has an NG output of 350 cc for yesterday and the drainage from the J-tube is in the order of 400 cc over the past 24 hours. The blood work shows a WBC count of 10.8, hemoglobin 8.1 and platelet count of 41. Platelet counts are essentially stable and slightly improved compared to yesterday. The sodium level is at 133, potassium is at 4.3, BUN is 93 with a creatinine of 3.6. LFTs are within normal limits. Albumin is down to 2.1. The patient is currently on no pressors. Norepinephrine and vasopressin are both discontinued and the patient remains in normal sinus rhythm. No other significant events overnight. Family has been updated on his condition. Antibiotic coverage is currently with IV meropenem. Vancomycin and Zosyn have been both discontinued. On 12/01/2023, the patient remains sedated on propofol which is running at 25 mcg/kg/min., Comfortable and synchronous mechanical ventilator. The patient remains on assist-control mode rate of 28, tidal volume of 550, FiO2 40% and PEEP of 5. Blood gas shows a pH of 7.49 with a pCO2 of 34 and pO2 of 121. Patient underwent hemodialysis yesterday. No plans for hemodialysis today the patient is producing urine output. Remains on TPN for nutrition support rate of 75 cc an hour. IV fluids are currently at KVO. The chest x-ray from today shows bilateral lower lobe consolidation worse on the right. No significant change in the volume status. The patient continues to have third spacing and edema in all 4 extremities. Nevertheless, urine output is adequate at this point in time and the patient remains on Lasix 80 mg IV every 12 hours. Remains NPO. NG tube and J-tube are both drainage. Output is noted. Remains on IV meropenem. Afebrile. Currently on no pressors. Blood work shows a WBC count of 11.4, hemoglobin of 8.1 and platelet count of 46. Sodium is at 131, potassium level is at 3.7, chloride 101 and bicarb is at 24. BUN is 84 with a creatinine of 3.6. Glucose of 228. LFTs are within normal limits. Patient was reevaluated today on 12/02/23, patient remains in the ICU, patient is familiar to my service, I saw this patient 3 weeks ago. Since then he had a very complicated hospital course, related to his jejunostomy tube dislodging and leaking and picture of abdominal sepsis and worsening pneumonia/ARDS. Patient had to be placed back on mechanical ventilation, and he is now intubated and mechanically ventilated. He is on assist-control rate of 20 tidal volume 550 FiO2 40% PEEP of 5 ABG showed a pO2 of 111 pCO2 38 pH of 7.43 and I cut down his FiO2 to 35% and increase his flow rate from 60-70. Patient remains on TPN at 75 cc/h he is on propofol at 25 mcg/kg/min patient is on Cleviprex which I added today for elevated blood pressure. Receiving Lasix 80 mg every 12 hours is also on Merrem as per infectious disease. Patient is on hemodialysis and being followed by nephrology. Patient required multiple abdominal surgeries since his initial admission. Chest x-ray continues to show worsening pneumonia involving both lungs, right more so than left, I suspect there may be a component of ARDS. His initial presentation was the presentation of aspiration pneumonia to begin with and that was 3 weeks agoWBC count is 10.3 hemoglobin 8.6 sodium 131 potassium 4 chloride 100 bicarb 23 BUN is 111 creatinine 4.02 blood sugar is 248. Albumin is 1.9 Patient was evaluated today on , patient remains in the ICU, intubated and mechanically ventilated. Patient is on assist-control rate of 20 tidal volume 550 FiO2 35% and PEEP of 5 ABG showed a pO2 of 99 pCO2 39 pH of 7.44 patient is undergoing hemodialysis today, and the plan is to remove 2 L. He is remains on propofol at 35 mcg/kg/min, remains on TPN at 75 cc/h. Remains on Merrem. Patient is not requiring any pressors today. Yesterday patient did not tolerate to be off sedation long enough, and today we tried the same sedation interruption, and the patient did not do well post interruption of sedation, became extremely agitated restless, tachycardic, and could not fully assess mental status off sedation. Hence the patient was placed back on AC mode of mechanical ventilation, and the plan is to continue the same supportive care measures. Family updated on his condition and most likely the patient will end up requiring tracheostomy in the next few days.WBC count is 8.5 hemoglobin 8.2 basic metabolic profile is relatively unremarkable BUN is 89 creatinine 3.45 chest x-ray today showed stable chest, suspect some right-sided pleural effusion which would likely improve with hemodialysis/ultrafiltration. X-ray of abdomen showed nonspecific nonobstructive bowel gas pattern Patient was seen today on 12/04/2023, remains in the ICU, intubated mechanically ventilated, on assist-control rate of 20 tidal volume 550 FiO2 35% PEEP of 5 ABG showed a pO2 of 112 pCO2 38 pH of 7.45, hence no changes were made in ventilator settings. Patient is on propofol at 35 mcg/kg/min he is also on IV fluid at KVO TPN at 75 cc/h. Remains on hemodialysis remains on Lasix 80 mg IV push twice daily, remains on Merrem. This x-ray continues to show the same findi ngs/airspace disease in both lungs, not much of a change in the last 2 days, however his oxygenation seems to be improved. WBC count is 7.1 hemoglobin 7.7. Electrolytes are normal, BUN is elevated 77 creatinine 3.32, patient is on hemodialysis. His condition was discussed today with the at bedside, and I do not believe the patient is ready to be weaned or extubated, however he seems to get extremely agitated when he goes off propofol, today I plan to transition propofol to Precedex, give him a trial on Precedex and determine whether the patient becomes more appropriate and at least ready for any weaning trials. Clinically I doubt if this will happen but we will go ahead and try Patient was evaluated today on 12/05/2023, remains in the ICU, intubated mechanically ventilated, not much of a change noted in the last 24 hours. Remains on assist-control of 20 tidal volume 550 FiO2 35% PEEP of 5 ABG showed a pO2 of 90 pCO2 37 pH of 7.48 hence chose not to change any of his ventilator settings. Yesterday the patient failed again trial of weaning, and he was never anywhere near ready to be weaned in spite of placing him on Precedex and off propofol, at 1 point the patient became extremely agitated restless and he was biting on the endotracheal tube could not fully awake the patient and determine improvement in his mental status. Hence patient was placed back on propofol yesterday and he remains on propofol today. He is on propofol at 25 mcg/kg/min he is on TPN at 75 cc/h surgery is considering starting his J-tube feedings today. Remains on hemodialysis remains on Merrem remains on Lasix 80 mg IV push twice daily overall not much of a change his chest x-ray is basically about the same showing bibasilar airspace disease. Today I had a discussion with the regarding the option of tracheostomy extremely reluctant to have it done yet. Said that the patient had multiple complications with previous surgeries and she is afraid that he is going to have another complication with the surgeryWBC count is 10.2 hemoglobin is 8, basic metabolic profile is normal sodium 130 BUN 70 creatinine 2.89 Patient was seen today on 12/06/23, remains in the ICU, intubated mechanically ventilated, his ventilator settings are assist-control rate 20 tidal volume 550 FiO2 35% and PEEP of 5 ABG showed a pO2 of 103 pCO2 36 pH of 7.47 patient opens eyes but does not follow any other instructions. He is now off propofol for the last 24 hours, he is maintained on Precedex at 0.4, TPN at 75 cc/h vital AF at 5 mL/h. Patient remains on Merrem, patient did not receive dialysis today because issues related to occluded dialysis catheter. Nonetheless the patient is making urine, and continues to improve with diuretics. Chest x-ray continues to show bibasilar airspace disease, not much of a change control specialist the last 1 week.WBC count today is 11.8 hemoglobin is 7.9.Basic metabolic profile is normal BUN is 92 creatinine 3.74. Blood sugar is 226. Family is at bedside, considering his overall mental status at this point, not quite ready to start checking weaning parameters, and is not ready for weaning. Nonetheless I plan to keep him on Precedex, and hopefully avoid narcotics and other sedatives. His mentation starts clearing a bit more, then will start trials of weaning parameters and/or weaning trials Patient was seen today on 12/07/2023, remains in the ICU, intubated and mechanically ventilated, on assist-control rate of 20 tidal volume 550 FiO2 35% PEEP of 5 ABG showed a pO2 of 83 pCO2 33 pH of 7.50 hence the tidal volume was cut down to 500. Patient remains off propofol remains off narcotics is only on Precedex for sedation at 0.6 mg/kg/h. He is on norepinephrine at 0.02 TPN at 75 cc/h IV fluid at KVO vital AF at 10 mL/h is also on Merrem. Neurologically I am concerned about this patient neurological status, does not seem to be waking up much, he opens his eyes but does not follow any instructions and spite of sedation hold for quite some time. Hence I am recommending a CT of the brain and multiple recommending a neurological consultation on this patient. WBC count is 18 7 hemoglobin is 8.4, basic metabolic profile is normal BUN is 75 creatinine 2.95, patient is back on dialysis, he had a new hemodialysis catheter placed yesterday by vascular surgery, and he will be restarted back on hemodialysis. CT of the brain done shortly after evaluating the patient showed no acute intracranial process chest x-ray basically about the same, continues to show small left and moderate right basilar infiltrate. Has not changed much over the last 1 week, patient remains on antibiotics. Patient was seen today on 12/08/2023, remains in the ICU, intubated and mechanically ventilated, remains on assist-control rate of 20 tidal volume 500 FiO2 35% PEEP of 5 ABG showed a pO2 of 88 pCO2 37 pH of 7.47 hence no changes were made in ventilator settings. Chest x-ray is showing slight increase in his right-sided pleural effusion, however his oxygenation seems to be about the same, and the patient is responding to Lasix given at 80 mg IV push every 12 hours, he is also doing well with hemodialysis he had 2 L removed yesterday and 2 L the day before. Hence will not recommend thoracentesis at this point. But the pleural effusion will need to be closely monitored. Patient remains off propofol he is on Precedex at 0.6 mcg/kg/h. For the last 2 days, and his mentation is not much different from baseline. Continues to open his eyes and does not follow any other instructions has the patient is clearly not ready for weaning trials or extubation. Brought up the issue of tracheostomy again with the , she is still reluctant to proceed with tracheostomy on him at this point. Patient remains on Merrem, remains on TPN but his enteral feeding will be advanced today to full goal, and if that happens then we will can discontinue TPN. Patient is receiving vital AF 1.2@10 mL/h at this point.WBC count is 19.3 hemoglobin 7.6. Basic metabolic profile is normal BUN is 72 creatinine 2.99 blood sugar ranging between 250 up to 334. 12/09/23 - patient seen at bedside today, remaining in the ICU, intubated and mechanically ventilated, remaining on assist-control rate of 20, tidal volume 500, FiO2 30%, PEEP of 5 and oxygen saturation of 100%. Patient is on day 27 of his hospital stay (admitted 11/11), day 15 of this current ICU stay (readmit to the ICU 11/24) and day 15 of this current period of time on the ventilator (placed 11/24). ABG showed pO2 100, pCO2 36, pH 7.47. Chest x-ray was deemed to be stable, however possibly with slight improvement noted on the left with a right-sided pleural effusion remains evident however the patient's oxygenation remains to be about the same. Continue to receive 80 mg IV Lasix every 12 hours and is receiving daily hemodialysis, in which he has been having 2 L removed the past couple of days, hemodialysis yet to occur today. His creatinine is 3.57 (compared to 2.99 yesterday) and BUN 98 (compared to 72 yesterday). Due to this response to diuresis and hemodialysis, no thoracentesis recommended at this point however pleural effusion will need to continue to be monitored. Patient shon off propofol, he is on Precedex at 0.4 mcg/kg/h. Due to his mentation remaining near baseline, neurology had been consulted who ordered an EEG which showed diffuse background slowing of his severe degree which is suggestive for generalized cerebral dysfunction and can be seen with toxic metabolic encephalopathy, as well as the presence of sporadic intermittent, some higher amplitude, sharply contoured waves of generalized distribution. Because of this per neurology's recommendation, patient started on Keppra 500 mg twice daily. The patient does seem to be having some improved mentation, with opening his eyes and responding to commands some of this morning. Spontaneous breathing trial to be attempted today, to see if the patient will be able to come off of mechanical ventilation. If that is unable to occur, discussed with the patient as well as his and one of his daughters that a tracheostomy would be the most appropriate next course of action due to the potential dangers of sustained endotracheal intubation for prolonged period of time. The , while reluctant, seem to acknowledge that this is the appropriate course of action. He remains receiving meropenem 1 g nightly. He remains on TPN 75 mL/h, which she has been on since 11/21 (18), but his enteral feeding has been vital 1.2 AF at 10 mL/h with a goal rate of 80 mL/h. Patient drained 60 mg of serosanguineous fluid from his RAYA. His WBCs increased to 21.5 (compared to 19.3 yesterday), hemoglobin dropped to 7.2 (compared to 7.6 yesterday), hematocrit dropped to 22.0 (compared to 22.9 yesterday) and patient procalcitonin remains elevated at 3.07. 12/10/23 - Patient seen at bedside today, remaining in the ICU, intubated and mechanically ventilated, remaining on assist-control rate of 20, tidal volume 500, FiO2 30%, PEEP of 5 and oxygen saturation of 100%. Patient is on day 28 of his hospital stay (admitted 11/11), day 16 of this current ICU stay (readmit to the ICU 11/24) and day 16 of this current period of time on the ventilator (placed 11/24). ABG showed pO2 93, pCO2 37, pH 7.47, showing evidence of a mild metabolic alkalosis. Chest x-ray today showed stable disease compared to yesterday. He received levo overnight due to atypical blood pressure, patient's TPN was up to 120 due to the change in formula. Patient is scheduled to undergo tracheotomy today (12/09) at 16:30. Per the nurse and the overnight staff patient continues to open his eyes and shows some responsiveness to commands. Per nephrology's recommendation dialysis to be held today due to the patient going for the tracheotomy later, as well as the dip in blood pressure seen after yesterday's dialysis session which required Levophed. Patient's Hgb this morning 6.6, will be given 1 unit today, which will be the second unit he has received during his hospital course. Patient's airway resistance noted to be 3.3 cm/L/s, static lung compliance shown to be 45 mL/cm H2O and dynamic compliance 33 mL/cm H2O. 12/11/23 - Patient seen at the bedside, remaining in the ICU, with a tracheotomy tube and mechanically ventilated while receiving dialysis. Patient remains on assist-control rate of 20, FiO2 30%, PEEP of 5 and has an oxygen saturation of 97%. Patient is on day 29 of the hospital stay (admitted 11/11), day 17 of his current ICU stay (readmitted to the ICU 11/24) and day 17 of his current period of time on the ventilator (placed 11/24). ABG today showed pO2 115, pCO2 38, pH 7.44 continuing to show evidence of a mild metabolic alkalosis. Chest x-ray today showed stable disease. Patient had tracheotomy placed yesterday afternoon (12/09) without any complications. Patient has had 3 consecutive days of attempting spontaneous breathing trials in an effort to wean the patient off the ventilator, all of which failed to this point. Beginning today the patient's antibiotics (meropenem) will be discontinued and we will begin weaning his propofol down from 25 mcg/kg/min. As the patient is weaned off of the propofol, 0.5 Dilaudid and 1 mg IV Ativan to be used every 6 hours as needed. Patient is continuing to receive normal saline 20 cc/h, and has a total of 200 mL of serosanguineous fluid from his RAYA drain. TPN to continue at a rate of 120 mL/h additionally tube feeds, which had been held due to the patient receiving s traight catheter yesterday, will be restarted today with an ultimate goal being to receive enteral nutrition at a rate of 80 mL/h. TPN to continue until able to increase the enteral nutrition to at least 50 mL/h, as per the dietitian's recommendation. Will be exploring the possibility of the patient being moved to select specialty. 12/12/23 - Patient seen at the bedside this morning, in ICU room 253, while receiving and EEG, no significant events overnight. Patient remains with tracheotomy and is mechanically ventilated on assist control with a rate of 20, tidal volume 500, FiO2 30%, PEEP of 5 with an oxygen saturation of 98%. Patient is on day 30 of the hospital stay (admitted 11/11), day 18 of his current ICU stay (readmitted to the ICU 11/24) and day 18 of his current period of time with mechanical ventilation (placed in 11/24). ABG today showed pO2 92, pCO2 36, pH is 7.49 continue to show signs of a combined respiratory and metabolic alkalosis. WBC 17.9, Hgb 7.4, Hct 22.6, PLT 151; sodium 133, potassium 4.0, HCO3 27, BUN 88, creatinine 2.96. Chest x-ray done today continuing to show patchy infiltrate throughout the right lung with layering effusion. Patient is continuing to receive normal saline 20 cc/h, continues to receive Dilaudid 0.5 mg IV push every 6 hours as needed, as well as Ativan 1 mg IV every 6 hours as needed. Patient is no longer maintained on propofol. TPN continues at a rate of 120 mm/h and EN vital AF at 30 mL/h with a goal of 40 mL/h. Once goal is reached, TPN can be discontinued and patient will be switched over to Nepro 50 mL/h. Following the patient having 3 consecutive days of attending spontaneous breathing trials and effort to wean, we will begin trying the patient with CPAP and pressure support in effort to wean, today's trial the patient will be placed on PS 5 and PEEP of 5 for 25-45 minutes, or as he is able to tolerate it. Disc ussed with the patient's the importance of continuing to wean the patient's with trials, in an effort to build up some of the strength in his lungs to better be able to tolerate breathing on his own. Will continue to evaluate for possible placement in a long-term acute care facility. 12/13/23 - Patient seen at the bedside this morning, in ICU room 253, with no significant events overnight noted. Patient remains with tracheotomy and is mechanically ventilated on assist control with a rate of 20, tidal volume 500, FiO2 30%, PEEP of 5 with an oxygen saturation of 98%. Patient is on day 30 one of the hospital stay (admitted to 11/11), day 19 of his current ICU stay (readmitted to the ICU 11/24) and day 19 of his current period of time with mechanical ventilation (placed 11/24). ABG today showed pO2 87, pCO2 36, pH 7.48 continue to show signs of a combined respiratory metabolic alkalosis. WBC 17.3, Hgb 8.0, Hct 25.3, PLT 191; sodium 136, potassium 4.1, BUN 116, creatinine 3.17. This x-ray done today continues to show stable disease. Patient had an EEG completed yesterday (12/11) which showed an abnormal EEG, study being limited because of diffuse myogenic artifact. Background slowing suggestive of severe encephalopathy. Otherwise no appreciable epileptiform discharges, focal slowing, or seizure noted during the exam. Patient continues to receive Dilaudid 0.5 mg IV push every 6 hours as needed, as well as Ativan 1 mg IV every 6 hours as needed. Patient's TPN has been stopped, he is not receiving Nepro at 50 mL/h, which is goal. Patient Solu-Medrol has been discontinued, patient now receiving 30 mg prednisone daily. Patient's trial yesterday with CPAP and pressure support with the patient was sent PS of 5 and PEEP of 5, patient tolerated 40 minutes well it was noted that his respiratory rate increased and his minute ventilation also increased during this time. Will continue with another weaning effort today and continue to reassess how the patient tolerates. He will be receiving hemodialysis today, with the plan to hold over the weekend and then reassess Saturday per nephrology. Additionally IV Lasix has been discontinued on this patient, nephrology did state that he may need to resume receiving the Lasix if the urine output tapers. Progress note dated December 14, 2023. The patient is seen today in room 253. The patient remains on the mechanical v entilator. His settings include volume assist-control, rate 20, tidal volume 500, FiO2 30%, PEEP of 5. Blood gases show pO2 of 76, pCO2 of 36, pH of 7.47. The patient is getting saline at 10 cc an hour, and Nepro at 50 cc an hour which is goal. The patient will go back on pressor support of 5 and CPAP of 5 today. Yesterday, he spent 2-1/2 hours on pressure support. The patient did have a tem perature last night. He discussed some purulent drainage at the wound site. I have asked surgeon to come back and see the patient. In addition, the nurse will get blood, urine, sputum, and wound cultures going. He is not on any antibiotics. We will check a procalcitonin level. White count of 16.7, hemoglobin 8.1, hematocrit 24.5, platelet count is normal. Sodium 135, potassium 3.9, chlorides 103, CO2 24, BUN 106, creatinine 3.04. Calcium is 7.1. Magnesium is 2.0. Urine is yellow, with 1+ protein, 6 WBCs, and rare bacteria. Chest x-ray shows a stable chest x-ray, which is largely unchanged. Progress note dated December 15, 2023. 73-year-old male seen again in room 253. The patient remains on mechanical ventilator. Blood gases show pO2 of 78, pCO2 of 36, pH of 7.47. The patient is getting saline at KVO, and Nepro at 50 cc an hour which is goal. The patient did a spontaneous breathing trial yesterday, and went about 6 hours on PSV 5, CPAP of 5. The patient's procalcitonin level was elevated at 1.92. We added back Zosyn. Yesterday we did sputum, blood, urine, and wound cultures. The patient will have another spontaneous breathing trial today. Current labs include a white count 16.3, hemoglobin 7.5, hematocrit 22.6, and a normal platelet count. Sodium 138, potassium 3.5, chlorides 105, CO2 24, BUN 125, and creatinine 3.22. Glucose is 220. Calcium is 6.9. Chest x-ray shows a right- sided pleural effusion, and some similar changes, to the previous x-ray. This is a 73-year-old white male with history of chronic abdominal pain for the last 8 months has been treated with Protonix 40 mg daily for the last 3 months with no improvement. Patient had a 22 pound weight loss in the last [address] of the abdomen and pelvis 3 weeks ago showed thickening of the antral wall with pathological adenopathy posterior to the stomach suspicious of neoplasm. Today the patient underwent elective upper endoscopy to evaluate further, patient received IV sedation by anesthesia endoscope was inserted into the mouth, esophagus was intubated without any difficulty there was evidence of large amount of liquid and solid food noted in the stomach suggestive of gastric out let obstruction. Scope could not be advanced through the pylorus, however in the prepyloric area there was a large superficial ulceration identified with multiple biopsies were done from this area. The body cardia and fundus could not adequately visualize because of large amount of retained food in the stomach. Scope was withdrawn back to the stomach and upon careful examination the mucosa of the antrum body and cardia as well as the fundus appeared normal. Procedure was being performed and biopsies were done patient threw up and subsequently became hypoxic there was clearly evidence of witnessed aspiration anesthesia intubated the patient, procedure was terminated, and the patient was transferred to the ICU, this consult was initiated. Patient is now on assist- control rate of 20 tidal volume 500 FiO2 70% PEEP of 10 ABG is pending, earlier ABG showed profound hypoxia patient is on propofol at 50 mcg/kg/min, next ABG is pending. Chest x-ray showed chronic changes without evidence of acute pulmonary disease. 12/20/2023, the patient is being seen for a follow-up. More alert and awake compared to yesterday. He is able to move his fingers and toes on today's evaluation. Following commands. Nevertheless, his J tube has been clogged and was unable to utilize the tube that has been some leaks around the tube. No abdominal distention. No nausea or emesis. Hemodynamically stable. Will undergo hemodialysis today. He remains on pressure control mode of mechanical ventilation at rate of 16, pressure of 10, +5 PEEP with an FiO2 of 30%. Chest x-ray from today is essentially unchanged with a stable cavity in his right upper lobe. White cell count of 15.7, hemoglobin 7.2, platelet count is 203, blood gas showed a pH of 7.49 with a pCO2 of 33 and pO2 of 73. BUN is 88 with a creatinine 1.89 and sodium is at 141 with a potassium level of 4.1. He is producing adequate amount of urine output. Fluid balance has been -900 cc over the past 24 hours. Normotensive. Remains on a combination of Zosyn and daptomycin. Remains on Levemir insulin 24 units daily. This is currently on hold as the patient has not been able to obtain enteral feeding. Wound VAC still in place. 12/21/2023, the patient remains on the mechanical ventilator. Overnight, the patient experienced discomfort in his abdomen and he was restless. Based on that, the patient was placed on a higher dose of Precedex which is currently running at 0.6 mcg/kg/h. The patient was also asynchronous with the mechanical ventilator and based on that, the patient was switched to an AC mode and currently is at a rate of 16, tidal volume of 400, FiO2 of 30% with a PEEP of 5. The patient is adequately sedated for now. Chest x-ray remains unchanged. Tracheostomy tube in place and the patient is having increased amount of respiratory secretions. J tube needs to be replaced today and this will be done by his general surgery as the tube remains clogged. Urine output is low order of 30 cc an hour. Afebrile. Remains on Zosyn and daptomycin. White cell count is 16.9, hemoglobin 7.4 and a platelet count of 280. Blood gas from today showed a pH of 7.46 with a pCO2 of 36 and pO2 of 82. Sodium levels of 144, BUN is 19 with a creatinine of 2.2 and a serum bicarb is at 23. The abdominal wound remains unchanged. RAYA drain is serosanguineous. 12/22/2023, patient remains on Precedex at 0.4 mcg/kg/min. Arousable. Communicates. Profoundly weak. Remains on the mechanical ventilator with a rig ht lung abscess. SIMV mode mode rate of 16, tidal volume of 400, FiO2 30% with a PEEP of 5, with a pressure support of 8. Blood gas showed a pH of 7.46 with a pCO2 of 32 and a pO2 of 82. Chest x-ray remains unchanged with a right upper lobe cavitating lesion/opacity and a suspected lung abscess. This is rated Pseudomonas and the patient remains on IV Zosyn. He remains on daptomycin. Urine output is in order of 50 cc an hour.. The J-tube was unplugged yesterday. Nevertheless, the tube itself is malfunctioning and there is drainage around the tube requiring dressing changes the dressings being soakedConstantly. The patient's white cell count is 12.3 with a hemoglobin 7.7. Sodium is at 149, BUN 91 with a creatinine of 2.3. Bicarb is at 20. Undergoing hemodialysis periodically. Last hemodialysis was on 12/21/2023. Currently NPO. Abdominal wound is clean and the patient has a wound VAC in place. RAYA drain output is serosanguineous. Patient was seen today on 12/23/2023, remains in the ICU, intubated and mechanically ventilated. Patient is on IMV with pressure support/IMV 16, pressure support of 8, tidal volume 400, PEEP of 5. Patient seems to be doing well with that kind of mode of mechanical ventilation, ABG showed a pO2 of 76 pCO2 28 pH of 7.50. I changed his rate from 16-8 kept him otherwise on the same ventilator settings. Plan to gradually go down on the IMV rate until we can get him on pressure support of 8 and CPAP. Patient is requiring Precedex at 0.4 m cg/kg/h, he is on D5W at 50 cc/h. Remains on antibiotics in the form of daptomycin and Zosyn, chest x-ray continues to show bilateral airspace disease and right upper lobe lung abscess. Continues to have a bit of a leak from his J-tube being addressed by surgery has a wound VAC, and he had a RAYA drain. Mentation arce the patient is a bit more appropriate, opens his eyes, follows very simple instructions, seems to comprehend. Patient has a left brachial PICC line, he also has a left groin hemodialysis catheter. WBC count is 10.1 hemoglobin is 7 sodium is 149 potassium 4 chloride is 121 BUN is 86 creatinine 2.31. Blood sugar is 173. Remains on enteral feeding via J-tube, a bit of a leak is noted, and surgery is to address this. Sputum cultures have grown Klebsiella and Pseudomonas and remains on proper antibiotics Patient was seen and examined today on 12/24/2023, patient remains in the ICU, and mechanically ventilated. On IMV mode of 8 pressure support of 8 tidal volume 400 FiO2 30% and PEEP of 5 ABG showed a pO2 of 81 pCO2 32 pH of 7.45. Patient remains on daptomycin and Zosyn, remains on Precedex at 0.4 mcg/kg/h intermittently receiving Dilaudid for pain. Feeding arce is presently on hold, patient had a leak around the jejunostomy tube, surgery is recommending a trick le feed or TPN if could not use the J-tube. Patient is arousable follows simple instructions, and today I had a chance to get rid of the IMV mode, and I am recommending a pressure support of 8 and CPAP. For the last few hours the patient has been tolerating this mode of mechanical ventilation, however he is not quite ready to go to [facility] at this point. Chest x-ray continues to show significant opacity in the right upper lobe and airspace disease in the right lower lobe. Previously patient had a CT of the chest showing right upper lobe abscess. Again he remains on Zosyn and daptomycin.Labs today showed WBC count of 10.6 hemoglobin 7.8 sodium is 147, patient is now on D5W at 100 cc an hour his bicarb is 19 BUN 74 creatinine 2.08, gradually improving, his last hemodialysis was on the , nephrology is considering removing his dialysis catheter in the left groin and I believe that is appropriate patient was seen and examined today on 12/25/2023, remains in the ICU, intubated and mechanically ventilated. Patient had to be placed back on assist-control mode of mechanical ventilation yesterday, mostly because he developed significant agitation and restlessness, and ongoing persistent cough with some air leak from the cough of that tracheostomy. Patient had to be sedated and he was placed on propofol and he remains on propofol at 50 mcg/kg/min. Maximal dose of Precedex yesterday could not calm him down, hence we had to transition him from pressure support/CPAP mode of mechanical ventilation to assist-control mode of mechanical ventilation and fully sedated him with propofol replacing Precedex. Today the patient is sedated, he is on assist-control rate of 16 ti sierra volume 400 FiO2 30% PEEP of 5 ABG showed a pO2 of 98 pCO2 30 pH of 7.45 chest x-ray is basically the same showing significant airspace disease in the right upper lobe and right lower lobe. Remains on daptomycin and Zosyn. His IV fluid was transitioned to D5 4 5 from D5W sodium today is 141. His urine output is about 40 to 50 cc/h, renal profile is improving with steady trending of creatinine down. Patient continues to have leakage around the jejunostomy tube. Patient is being followed by surgery no specific recommendation made except to continue the same and except the leak as it isLabs today showed WBC count of 11.5 hemoglobin 8.2 basic metabolic profile is normal BUN is 60 creatinine down to 1.81 Patient seen today on 12/26/2023, remains in the ICU intubated mechanically ventilated sedated patient is on assist-control rate of 16 tidal volume 400 FiO2 30% PEEP of 5 ABG showed a pO2 of 82 pCO2 34 pH of 7.43. Patient is now on TPN at 30 cc/h propofol at 50 mcg/kg/min hemoglobin is down to 6.8 today and he is receiving a unit of packed RBCs. His IV fluids at 50 cc/h in the form of 0.9 normal saline. He was last night on a small dose of norepinephrine at 0.01 mcg/kg/min and is presently on hold. Antibiotics arce patient is on Zosyn daptomycin and Eraxis. Chest x-ray continues to show significant airspace disease involving the right upper lobe and right lower lobe not much of a change noted on the chest x-ray. Clinically the patient is about the same, today I plan to discontinue propofol, arrange for the patient to go on Precedex, and assess mental status off sedation. If tolerated, may transition the patient again to pressure support and CPAP type of mechanical ventilation, but he is not ready to go to that transition yet. WBC count is 11.6 hemoglobin 6.8. ABG today showed a pO2 of 82 pCO2 34 pH of 7.43 potassium is 3.3 being addressed accordingly BUN is 53 creatinine 1.84 Patient was evaluated today on 12/27/2023, remains in the ICU intubated and mechanically ventilated. Patient is presently on IMV mode of mechanical ventilation with pressure support rate of 16 pressure support 14 tidal volume 400 FiO2 30% and PEEP of 5 ABG showed a pO2 of 99 pCO2 31 pH of 7.44. Intermittently the patient has been experiencing episodes of extreme agitation and restlessness he is on Precedex at 0.5 mcg/kg/h. Patient is on IV fluid 0.9 normal saline at 50 cc/h and is also receiving TPN. Remains on Eraxis daptomycin and Zosyn patient is intermittently requiring Dilaudid, Ativan does not seem to help his agitation and restlessness. But Dilaudid does hence I would recommend 0.5 mg every 2-3 hours as needed for agitation. Patient has good urine output roughly about 100 cc/h. Continues to have leakage around the jejunostomy tube, and patient is undergoing the J-tube exchange today. Family is at bedside, seems to be quite anxious about his overall condition, and I explained to the that we are doing the best we can considering his critical illness situation and critical illness polyneuropathy. Patient is profoundly weak, and weaning the patient from mechanical ventilation is almost impossible. At least not at this point yet WBC count is 10.9 hemoglobin is 8.1 basic metabolic profile is normal BUN is 46 creatinine 1.90 patient has been off hemodialysis since the . Chest x-ray continues to show stable findings with right upper lobe opacity and right lower lobe opacity and possibly a small right-sided pleural effusion Was evaluated today on 12/28/2023, patient remains in the ICU, intubated and mechanically ventilated, on IMV mode of mechanical ventilation rate set at 16 he is on pressure support of 14 tidal volume 400 FiO2 30% and PEEP of 5 ABG showed a pO2 of 113 pCO2 31 pH of 7.43. No major events overnight, patient is still requiring Precedex at 0.7 mcg/kg/h. He is on TPN as we could not use his jejunostomy tube, no jejunostomy tube was done yesterday, IV fluid is 0.9 at 50 cc/h remains on TPN at 65 cc/h patient is on Eraxis daptomycin and Zosyn. Chest x-ray is showing improvement in his right upper lobe airspace disease/lung abscess and there is a slight improvement in his right lower lobe opacity. Kathryn ent is arousable but does not follow any instructions, patient gets agitated easily if aroused and he started gagging on the tracheostomy tube. Family is at bedside, again updated on his condition. WBC count is 7.6 hemoglobin 7.9. Basic metabolic profile is normal BUN is 45 creatinine down to 1.51 patient has not had any dialysis since 12/17, his renal functioning and urine output continues to improve, hence I am strongly recommending removing his dialysis catheter Patient was seen on 12/29/2023, remains intubated and mechanically ventilated, in the ICU, on IMV of 16 tidal volume 400 FiO2 30% PEEP of 5 ABG showed a pO2 of 105 pCO2 31 pH of 7.45. Remains on Precedex at 0.8 mcg/kg/h, remains on TPN at 65 cc/h IV fluid 0.45 at 50 mL/h remains on multiple antibiotics and antifungal including Eraxis daptomycin and Zosyn. His hemodialysis catheter has been removed, urine output has been excellent renal functioning is improving chest x- ray is showing improvement in his right upper lobe airspace disease/pulmonary abscess. Right lower lobe seems about the same with chronic opacity and possibly some small right-sided pleural effusion. Family is at bedside, patient is arousable but does not follow any instructions. Gets extremely restless and agitated easily hence patient is receiving Dilaudid which seems to be working much better for this patient than benzodiazepines. And we are trying to avoid Ativan, trying to avoid any propofol as much as possible. I believe his drainage from the jejunostomy tube is becoming less and less, hence we could start considering early next week arrangement to possibly transfer the patient to a select care specialty. In the meantime I am recommending that we go down on the IMV rate by 2 every 2 hours the goal is pressure support of 14 and IMV of 8. Progress note dated December 30, 2023. This is a 73-year-old male who is now been in the hospital for 48 days. The patient was admitted back on November 11. Currently, he is seen in the intensive care unit, room 253. The patient is currently on synchronized IMV mode, rate of 8, pressure support of 14, PEEP of 5, FiO2 30%, and a backup tidal volume of 400 cc. Blood gases showed a pO2 of 87, pCO2 of 31, and a pH of 7.42. The patient will be switched back to the volume assist-control mode, as he is not ready to be weaned. His minute volume is nearly 18 L/min. He is breathing at a rate of about 40 times per minute. He currently is on Precedex 0.8 mics per kilogram per minute, TPN at 90 cc an hour, and half-normal saline at 50 cc an hour. The patient continues on Zerbaxa, Eraxis, and daptomycin. White count 11.5, hemoglobin 8.1, hematocrit 25, platelet count of 78,000. Sodium 142, potassium 4.2, chlorides 119, CO2 20, BUN 42, and creatinine 1.22. Glucose is 178. Albumin is 1.9. Sputum from December 24 shows evidence of Citrobacter freundii and Pseudomonas aeruginosa. Blood cultures from the same day were positive for Staphylococcus. Chest x-ray shows extensive pleural-parenchymal opacities, in both lungs, and the chest x-ray is largely unchanged from the pre vious days x-ray. Progress note dated December 31, 2023. 73-year-old male now here in the hospital for 49 days. The patient was admitted way back on November 11. He is seen today in room 253. Family members are at the bedside. The patient currently is on volume assist-control, rate 32, tidal volume 400, FiO2 30%, PEEP of 5. Blood gases show pO2 of 94, pCO2 of 35, pH is 7.40. Unfortunately, the patient is not synchronous with the ventilator, and so we switched to pressure regulated volume control or VC plus. We set an inspiratory time at 0.8 seconds, and the targeted tidal volume of 450 cc. The patient is on TPN at 70 cc an hour, saline at KVO, propofol at 40 mcg/kg/min. The patient continues on Eraxis, daptomycin, and Zerbaxa. Current labs include a white count 12.8, hemoglobin 7.3, hematocrit 22.4, and a platelet count of 67,000. Sodium 140, potassium 3.6, chlorides 119, CO2 20, BUN 43, creatinine 1.15. Glucose is 223. Calcium is 6.8. Today's chest x-ray is largely unc hanged. Progress note dated January 01, 2024. 73-year-old male seen again in room 253. The patient has not been in the hospital for 50 days. The patient continues on the mechanical ventilator. He is on pressure regulated volume control, or VC plus. His target tidal volume is 450 cc and his inspiratory time RTI is 0.8 seconds. His respiratory rate is 32. PEEP is 5, and FiO2 is 30%. Blood gases show pO2 of 98, pCO2 of 34, and a pH of 7.40. The patient continues on propofol at 15 mcg/kg/min, and TPN at 90 cc an hour. The patient also continues on Zerbaxa, daptomycin, and Eraxis. White count is 12.1, hemoglobin 7, hematocrit 22.0, and platelet count 69,000. Sodium 141, potassium 4.3, chlorides 120, CO2 19, BUN 44, creatinine 1.11. Calcium is 7. Chest x-ray shows a right-sided pleural effusion, with adjacent atelectasis and/or consolidation. There is a small left-sided pleural effusion as well. Progress note dated January 02, 2024. 73-year-old male seen again in room 253. The patient has not been here in the hospital for 51 days. He remains on mechanical ventilator. He is on the pressure regulated volume control modality no also noted his VC plus. The patient is on a rate of 32 breaths/min, PEEP of 5, FiO2 30%, inspiratory time her TI was 0.8, and a target tidal volume of 450 cc. Blood gases show pO2 of 90, pCO2 34, pH is 7.40. The patient is receiving TPN at 90 cc an hour, propofol at 20 mcg/kg/min, and has received a total of 6 units of packed red blood cells. The patient is going to get Dilaudid and Ativan scheduled. Dilaudid will be 1 mg every 2 hours, and Ativan 1 mg every 6 hours. The patient continues on daptomycin, Eraxis, and Zerbaxa. White count is 10, hemoglobin 6.5, hematocrit 20.3, platelet count 83,000. Sodium 140, potassium 4.6, ch lorides 119, CO2 20, BUN 45, creatinine 1.08. Most recent cultures are from December 24, showing evidence of Citrobacter from the and Pseudomonas aeruginosa, in the sputum. Blood cultures, on the same day, show evidence of Staphylococcus species. Chest x-ray shows extensive pleural-parenchymal opacities in the right hemithorax, and patchy opacity at the left lower lobe area. Progress note dated January 03, 2024. 73-year-old male seen in room 253. The patient has now been in the hospital for 52 days. He remains on mechanical ventilator, with the modality being the pressure regulated volume control modality, also known as VC plus. The patient's inspiratory time is 0.8 seconds, and his targeted tidal volume is 450 cc. Rate is 32, FiO2 30%, PEEP of 5. Blood gases show pO2 of 95, pCO2 of 34, pH of 7.41. The patient is on TPN at 90 cc an hour, propofol at 15 mcg/kg/min, saline at 10 cc an hour. Daptomycin and Eraxis have been discontinued. Zerbaxa is on day #6 of . We are going to DC the metoprolol and midodrine from the [facility]. Apparently, the patient has been denied twice, to the [facility] by his insurance. White count is 1.5, hemoglobin 8, macro 24.4, platelet count 78,000. Sodium 139, potassium 5.3, chlorides 119, CO2 20, BUN 44, creatinine 1.05. Glucose 192. Calcium 7.1. Magnesium 1.8. The chest x- ray today, is largely unchanged. Progress note dated January 04, 2024. 73-year-old male seen in room 253. The patient has now been in the hospital for 53 days. He remains on the mechanical ventilator. He is on pressure regulated volume control or VC plus, but the inspiratory time is 0.8 seconds, and a targeted tidal volume of 450 cc. His rate is 32, FiO2 is 30%, PEEP of 5. Blood gases show pO2 of 81, pCO2 of 35, and a pH of 7.44. He is on propofol at 10 mcg/kg/min, TPN at 90 cc an hour, and saline at 10 cc an hour. His only anti biotic currently is Zerbaxa. White count 13.4, hemoglobin 8.1, hematocrit 25, platelet count 95,000. Sodium 141, potassium 5.2, chlorides 114, CO2 23, BUN 47, creatinine 1.10. Glucose is 110. Calcium 7.4. Albumin is 1.8. Chest x- ray shows a largely unchanged evaluation. Progress note dated January 05, 2024. 73-year-old male seen in room 253. The patient has now been in the hospital for 54 days. He remains on mechanical ventilator. He is on pressure regulated volume control, with inspiratory time of 0.8 seconds, and a targeted tidal volume of 450 cc. Rate is set at 32, FiO2 30%, PEEP of 5. Blood gases show pO2 of 98, pCO2 35, and a pH of 7.42. The patient's propofol has been weaned off. He is just getting scheduled Dilaudid and Ativan. He is getting TPN at 90 cc an hour, saline at 10 cc an hour. His only antibiotic is Zerbaxa, as Eraxis, and daptomycin has been discontinued. The patient will get a spontaneous breathing trial today with pressure support of 10 and CPAP of 5. White count 11.3, hemoglobin 7.6, hematocrit 23.4, platelet count 100,000. Sodium 138, potassium 3.9, chlorides 116, CO2 21, BUN 46, Creatinine 1.07. Albumin Is 1.9. Chest x- ray is largely unchanged. Patient was reevaluated today on 01/17/2024, patient was supposed to be sent home today with hospice to follow at home, however the family today/ change her mind, and asking to consider palliative care, she is also asking for a second opinion but she is not specific about the second opinion, explained to her that the only 3 downstairs maid that we have in this institution is myself Dr. Livia espinoza and Dr. Nivees and we have all given the same opinion, and if she could find a place where they could accept him to transfer to another institution, I will be more than happy to do so patient was declined transfer to [facility] he was also declined transfer to the [facility]. Today he is on pressure control mode of mechanical ventilation basically unchanged compared to yesterday. He remains on Precedex 1.4 mcg/kg/h remains on TPN, still could not use his J-tube. Patient is intermittently on Dilaudid, antibiotics arce he is receiving Cipro and fluconazole. Patient had multiple attempts to wean, could not tolerate more than few hours of pressure support of 14 and CPAP this has been done quite frequently and sometimes he does not even tolerate the switch from pressure control mode of mechanical ventilation to pressure support of mechanical ventilation. Patient is definitely a failure to wean and multiple attempts have failed. Patient has critical illness polyneuropathy he continues to have some nonspecific airspace disease bilaterally continues to have a pigtail catheter in place, and continues to have air leak,WBC count today is 16.3 hemoglobin 8.1 electrolytes showed low potassium of 3.3 being addressed accordingly renal profile is normal. Chest x- ray today is actually showing improvement compared to the previous x-rays he had all along. With significant improvement in the right upper lobe and the right lower lobe, continues to have some infiltrate in the left lower lobe Castriz seems to be intact Patient was seen01/18/24, remains in the ICU, remains intubated and mechanically ventilated, he is on pressure control mode of mechanical ventilation with pressure control of 15, DI of 0.8, rate 20, FiO2 30% and PEEP of 5 no ABG was done this morning did not feel to be necessary. Patient had a WBC of 15.8 hemoglobin 7.4. Basic metabolic profile is normal renal profile is normal continues to have bilateral airspace disease on chest x-ray specially the right upper lobe, and left lower lobe. Continues to have a pigtail catheter in place and continues to drain and he continues to have a air leak. Patient remains on ciprofloxacin, he is also on fluconazole, tobramycin was added by infectious disease on the case. Patient is getting now physical therapy and Occupational Therapy, he remains on Precedex at 1.3 mcg/kg/h he is also on TPN at 90 cc/h chest x-ray was noted and again he has bilateral airspace disease. Patient remains frail, chronically ill, and he does have clearly critical illness polyneuropathy. No plans by surgery to do much about his J-tube, continues to have a wound VAC in place. Today the patient will be given another trial of pressure support and CPAP, and will document how long he could do on pressure s upport mode of mechanical ventilation Patient was seen today on 01/19/2024, patient remains in the ICU, intubated and mechanically ventilated. Patient tolerated about 2 hours of pressure support and CPAP weaning yesterday, then he became restless, agitated, and went on to develop this ongoing cough. Hence had to be placed back on mechanical ventilation and remains on pressure control mode of mechanical ventilation with PI 15 ti 0.8 per 820 FiO2 30% PEEP of 5. Patient continues to have episodes of agitation and he has been on Precedex at 1.1 mcg/kg/h. Remains on TPN at 90 cc/h remains on IV fluid of 0.9 at 50 cc/h sodium is 129, that we will correct with 0.9 normal saline. Patient remains on tobramycin and ciprofloxacin and fluconazole. Continues to have right-sided pigtail catheter in place, and continues to have ongoing air leak. Chest x-ray continues to show airspace disease in both lungs but more concerning is the right upper lobe abnormality. Multiple attempts have been made in the past to wean the patient, and has not been able to tolerate more than few hours of pressure support and CPAP, will try another weaning trial today with pressure support of 14 and CPAP. Unfortunately I cannot place the patient on Seroquel and hoping to get rid of Precedex, mostly because we cannot use his GI tract. Fanny arce the patient remains on TPN. Progress note dated January 20, 2024. 73-year-old male who is now been in the hospital for 69 days. I last saw the patient on January 05, 2024. Currently, the patient remains in the intensive care unit, room 253. He spent about 20 hours on pressor support of 14 and CPAP of 5, yesterday, and is currently back on pressor support and CPAP. When not on pressor support and CPAP, the patient is on pressure assist control, with an inspiratory pressure of 15 cm of water, and inspiratory time is 0.8 seconds. Respiratory rate 20, PEEP 5, and FiO2 30%. The patient remains on TPN at 90 cc an hour, and saline at 50 cc an hour. He continues on Precedex at 1 mcg/kg/h. The patient is also on ciprofloxacin, tobramycin, and Diflucan. Current labs are good a white count 16.3, hemoglobin 8.3, hematocrit 25.3, and a normal plate let count. Sodium 130, potassium 3.7, chlorides 103, CO2 22, BUN 30, creatinine 0.65. Albumin is 2.2. Glucose is 195. Most recent sputum shows evidence of Pseudomonas aeruginosa. Chest x-ray is showing chronic changes, with no appreciable change. Objective - Vital Signs Vital signs: Vital Signs Temp 98.8 F 01/20/24 08:00 Pulse 67 01/20/24 10:00 Resp 22 01/20/24 10:00 BP 117/76 01/20/24 10:00 Pulse Ox 100 01/20/24 10:00 FiO2 30 01/20/24 11:25 Intake & Output 01/19/24 01/20/24 01/20/24 18:59 06:59 18:59 Intake Total 2123.554 2358.62 575.680 Output Total 1435 1495 510 Balance 688.554 863.62 65.680 Weight 100.6 kg Intake: IV 1460 2080 480 0.9 Normal Saline @ KVO 20 20 Ciprofloxacin/Dextrose 400 Pmx 400 mg In Dextrose/ Water 1 200ml.bag @ 200 mls/hr IVPB Q8H [facility] Rx#: [id number] Fluconazole in NaCl,Iso- 100 Osm 200 mg In Saline 1 100ml.bag @ 100 mls/hr IVPB DAILY [facility] Rx#: [id number] Sodium Chloride 0.9% 1, 450 600 90 000 ml @ 50 mls/hr IV . Q20H [facility] Rx#:[id number] TPN 990 1080 270 Intake, IV Titration 663.554 278.62 95.680 Amount Dexmedetomidine/0.9% NaCl 363.554 278.62 95.680 (Pmx) 400 mcg In Empty Bag 1 bag @ 0.2 MCG/KG/HR 5.2 mls/hr IV .[id number] [facility] Rx#:[id number] Fluconazole in NaCl,Iso- 100 Osm 200 mg In Saline 1 100ml.bag @ 100 mls/hr IVPB DAILY [facility] Rx#: [id number] Magnesium Sulfate-D5w Pmx 100 1 gm In Dextrose/Water 1 100ml.bag @ 100 mls/hr IVPB Q1H [facility] Rx#: [id number] Potassium Chloride 20 meq 100 In Water For Injection 1 100ml.bag @ 50 mls/hr IVPB ONCE [facility] Rx#: [id number] Output: Chest Tube Drainage 60 50 Chest Tube Right 60 50 Drainage 0 0 60 Medial Abdomen 0 0 0 Right Upper Posterior 60 Chest Urine 1375 1445 450 Other: Voiding Method Indwelling Catheter Indwelling Catheter ABP, PAP, CO, CI - Last Documented Arterial Blood Pressure 173/76 - Exam No acute distress, somewhat lethargic, in no acute distress, with a midline tracheostomy tube. HEENT examination is grossly unremarkable. Neck supple. Full range of motion. No adenopathy thyromegaly or neck vein distention. Midline tracheostomy tube noted. Cardiovascular examination reveals regular rhythm rate. S1-S2 normal. No S3 or S4. No discernible murmur noted. Lungs reveal mild scattered rhonchi. No wheezes or crackles. Breath sounds equal. Abdomen soft, without bowel sounds. Midline incision, there is for the most part intact, although there is some purulence noted, with some minimal dehiscence Extremities are intact. No cyanosis clubbing or edema. Skin is without rash or lesion. Neurologic examination is somewhat improved. - Labs CBC & Chem 7: 01/20/24 05:56 01/20/24 05:56 Labs: Abnormal Lab Results - Last 24 Hours (Table) 01/19/24 01/20/24 01/20/24 Range/Units 17:36 00:12 05:56 WBC (3.8-10.6) k/uL RBC (4.30-5.90) m/uL Hgb (13.0-17.5) gm/dL Hct (39.0-53.0) % RDW (11.5-15.5) % Neutrophils # (1.3-7.7) k/uL Sodium 130 L (137-145) mmol/L BUN 30 H (9-20) mg/dL Creatinine 0.65 L (0.66-1.25) mg/dL Glucose 152 H (74-99) mg/dL POC Glucose (mg/dL) 144 H 180 H (70-110) mg/dL Calcium 7.2 L (8.4-10.2) mg/dL Alkaline Phosphatase 194 H (38-126) U/L Albumin 2.2 L (3.5-5.0) g/dL 01/20/24 01/20/24 Range/Units 05:56 06:41 WBC 16.3 H (3.8-10.6) k/uL RBC 2.74 L (4.30-5.90) m/uL Hgb 8.3 L (13.0-17.5) gm/dL Hct 25.3 L (39.0-53.0) % RDW 16.8 H (11.5-15.5) % Neutrophils # 11.4 H (1.3-7.7) k/uL Sodium (137-145) mmol/L BUN (9-20) mg/dL Creatinine (0.66-1.25) mg/dL Glucose (74-99) mg/dL POC Glucose (mg/dL) 195 H (70-110) mg/dL Calcium (8.4-10.2) mg/dL Alkaline Phosphatase (38-126) U/L Albumin (3.5-5.0) g/dL Assessment and Plan Assessment: Acute hypoxemic respiratory failure with failure to wean from mechanical ventilation, S/P tracheostomy/PEG tube on December 10, 2023. Respiratory failure, requiring reintubation, on November 25, 2023. Acute hypoxic respiratory failure requiring intubation/mechanical ventilation secondary to aspiration during EGD on 11/12/2023. Patient was extubated on 11/14/2023. S/P J-tube placement 11/16/2023, which continues to leak. Septic shock. Acute kidney injury secondary to sepsis, and ATN. Acute bowel obstruction, diagnosed via CT scan, November 24, 2023. Acute aspiration pneumonia. Acute aspiration during upper endoscopy most likely secondary to gastric outlet obstruction secondary to non-Hodgkin's lymphoma. Chronic abdominal pain, secondary to B-cell lymphoma. Unexplained weight loss most likely secondary non-Hodgkin's lymphoma involving the stomach. Paroxysmal atrial fibrillation. Chronic anemia. Plan: Plan dated November 21, 2023. The patient is seen today in room 517. The patient is on 3 L of oxygen. He continues on Zosyn. Continues on tube feeds. He had a CT scan of the abdomen and pelvis. His respiratory status is improved. We will continue to follow. Prognosis is guarded. Labs, x-rays, medications are reviewed. The patient is apparently scheduled for an outpatient PET scan. Plan dated November 22, 2023. The patient appears very stable. His is in the room with him. Labs, x- rays, and medications are reviewed. The patient continues on Zosyn. Resting room air saturation was 89%. Chest CT, revealed bilateral patchy and basilar infiltrates. We will continue to follow make recommendations along the way. Prognosis is guarded. The patient was diagnosed with a gastric outlet obstruction, secondary to non-Hodgkin's lymphoma. Plan dated November 23, 2023. The patient is seen today in room 517. He is resting comfortably. He continues on saline at 10 cc an hour. He is getting tube feedings with Pivot at 20 cc an hour. He has been weaned down to 2 L of oxygen. He continues on Zosyn. Labs, x-rays, and all medications are reviewed. Prognosis is guarded. We will continue to follow. Plan dated November 24, 2023. The patient will be admitted to the intensive care unit. I believe he deserves to be an ICU patient. I did speak to the surgeon. Labs, x-rays, and medications are reviewed. No additional recommendations are made. Prognosis is guarded. The patient has now been in the hospital for 12 days. We will continue to follow. He continues on Zosyn. Plan dated December 14, 2023. The patient is seen today in room 253. Currently, the patient is on the ventilator. He will have another PSV/CPAP trial. Apparently yesterday, he went for about 2-1/2 hours before he required to be placed back on the ventilator. The patient is getting saline at 10 cc an hour, and Nepro tube feedings at 50 cc an hour, which is goal. The patient had a fever, and will be recultured. In addition, the midline incision in the abdomen, shows some evidence of purulence, and will have a surgeon, take a look at that. Currently, the patient is not on any antibiotics. We will recheck a procalcitonin level. One of the family members was in the room, and was updated. Plan dated December 15, 2023. The patient actually spent about 6 hours on pressor support yesterday. The patient will have another spontaneous breathing trial today. The patient remains off of all sedation. He is getting Ativan and Dilaudid as needed. He is receiving tube feedings at goal. Labs, x-rays, and medications are reviewed. The repeat procalcitonin level was elevated at 1.92. We added Zosyn empirically. He had pancultures done yesterday. Labs, x-rays, and all medications are reviewed. Prognosis is guarded. An update was given to the daughter and to the right. Dictation was produced using [employer] software. Please excuse any grammatical, word or spelling errors. Plan dated December 30, 2023. The patient is seen today in room 253. The patient has now been in the hospital for 48 days. He was admitted way back on November 11. The patient currently is not ready to be weaned, given his high respiratory rate, and high minute volume. The patient is converted back to volume assist-control. In addition, the patient continues on Zerbaxa, Eraxis, and daptomycin, because of recent infections, including Pseudomonas, and Citrobacter, as well as Staphylococcus. Labs, x-rays, and medications are reviewed. The patient will continue on a small dose of propofol, Dilaudid as needed, and Ativan. Dexmedetomidine which is currently running was to be discontinued. Additional recommendations and suggestions are forthcoming. Prognosis is poor in my opinion. The patient remains a full code. The remains hopeful. Dictation was produced using [employer] software. Please excuse any grammatical, word or spelling errors. Plan dated December 31, 2023. The patient is seen today in room 253. Family members are at the bedside. After observing the patient on the ventilator, for period of time, it was clear to me, the patient was not synchronous with the ventilator. For that reason, we switched from volume assist-control, to pressure regulated volume control or VC plus. The patient had a inspiratory time of 0.8 seconds, and a targeted tidal volume of 450 cc. Everything else stayed the same. After switching, the patient's respiratory rate came down, as did his minute volume. He appeared much more comfortable. Labs, x-rays, medications are reviewed. The patient continues on Zerbaxa, Eraxis, and daptomycin. We will continue to follow. Prognosis is guarded. No additional recommendations are made. The patient is on propofol at 40 mcg/kg/min. I have asked the nurses to use both Ativan every 6 hours, and Dilaudid every 2 hours as needed, to see if we can get him on a sm all dose of propofol so that we can send the patient to long-term acute care facility. Prognosis is guarded. Dictation was produced using [employer] dictation software. Please excuse any grammatical, word or spelling errors. Plan dated January 01, 2024. The patient is seen today in room 253. I had a long conversation with the patient's family yesterday. It was encouraged, by the primary service, Dr. Rowe. Dr. Rowe also talked to the family about CODE STATUS, and the possibility of a palliative care consult or hospice consultation. The patient is chronically and critically ill, but stable. The patient remains on the mechanical ventilator, and is not able to be weaned at this time. Previous attempts at weaning, has caused significant increases in respiratory rate, significant increases in minute volume, and disruptions of his vital signs. The patient continues on Zerbaxa, daptomycin, and Eraxis. The patient is on a relatively smaller dose of propofol at 15 mcg/kg/min. I have encouraged the nurse to wean that down even further. In addition to propofol, the patient is receiving Ativan, and Dilaudid as needed. Labs, x-rays, medications are reviewed. The patient could be considered for possible discharge to long-term acute care facility or [facility]. Plan dated January 02, 2024. I have ongoing discussions with the family. The patient is doing very poorly in my opinion, and is currently not weanable. The patient, could be transferred to a long-term acute care facility or specialized nursing facility. We are attempting to get his propofol dose down to a reasonable level. I did asked the nurses to make sure that the patient got his Dilaudid, and Ativan, as scheduled medications. The patient blood gases are excellent. pO2 is 90, pCO2 is 34, pH is 7.40. The patient remains on pressure regulated volume control modality of ventilation. Labs, x-rays, and all medications are reviewed. The patient is overall prognosis remains poor. The patient remains a full code patient. I did have a long talk with the patient's just a few days ago. Plan dated January 03, 2024. The patient is seen again in room 253. The , and one of the family members at the bedside. The patient continues on mechanical ventilation, and at this time, cannot be weaned. The patient is getting TPN at 90 cc an hour, propofol at 15 mcg/kg/min. The patient is receiving saline at 10 cc an hour. We were in contact with the infectious disease doctor. Daptomycin and Eraxis were discontinued. The patient is on day #6 of 10, on Zerbaxa. Metoprolol and midodrine were discontinued from the [facility]. The patient's insurance denied transfer to a long-term acute care facility twice now. Labs, x-rays, medications are reviewed. The patient is overall prognosis is very poor. Today's peak airway pressure is 19 cm of water. The Plateau pressure is 11 cm of water. We will continue to follow the patient, make recommendations along the way. I have had ongoing discussions with the patient's . Plan dated January 04, 2024. The patient is seen in room 253. The and daughter are in the room with the patient. She apparently did call [facility] yesterday, to see if they would except her . They apparently said that they had no beds, and did not currently except him. The patient continues on the mechanical ventilator. The patient's antibiotics have been pared down, to only Zerbaxa for another 3 to 4 days. The patient is down to propofol at 10 mcg/kg/min, TPN at 90 cc an hour, and saline at 10 cc an hour. The patient remains on VC plus modality of ventilation. Blood gases show pO2 of 81, pCO2 of 35, pH is 7.44. Labs, x-rays, medications are reviewed. Prognosis is guarded. We will continue to follow. Plan dated January 05, 2024. The patient will be given a spontaneous breathing trial, with pressure support of 10, CPAP of 5. I have asked the respiratory therapist to watch the patient carefully. Should he demonstrate any worsening respiratory status, high respiratory rate, low tidal volumes, high heart rate, diaphoresis, changes in blood pressure, or anything that would suggest fatigue, she should switch her back to the former modality. Labs, x-rays, medications are reviewed. I did spend some time talking to the patient's . I gave her an update. Apparently the patient's did call [facility], to see if he could be transferred. No beds were available. Also, he has been denied t [facility] to long-term acute care, by his insurance company, twice. Plan dated January 20, 2024. The patient was on pressor support and CPAP, for about 20 hours yesterday. The patient was placed back on pressor support and CPAP, this morning. When not on pressor support and CPAP, the patient is maintained on pressure assist control, with inspiratory pressure of 15 cm of water, inspiratory time 0.8 seconds, FiO2 30%, rate 20, PEEP of 5. Blood gases were not done. TPN is at 90 cc an hour, saline's at 50 cc an hour and Precedex is 1 mcg/kg/h. The patient remains on ciprofloxacin, tobramycin, Diflucan. Clinically, the patient appears to be tolerating weaning trials reasonably well. We are hoping to have the patient transferred to long-term acute care tomorrow. Additional recommendations and suggestions are forthcoming. Prognosis is guarded. Labs, x-rays, and all medications are reviewed. Dictation was produced using [employer] software. Please excuse any grammatical, word or spelling errors. Time with Patient: Greater than 30
[2024-01-20] MEDS: LIDOCAINE 2% (PF) 20 MG/ML 5 ML VIAL INHALATION PRN (16:15)
[2024-01-20] MEDS: 1: MVI, ADULT NO.4 WITH VIT K 10 ML, TRACE (CONC-1ML/DOSE) 1 ML, PARENTERAL ELECTROLYTES IV SCH (17:17)
[2024-01-20] MEDS: POTASSIUM CHLORIDE 10 MEQ in WATER FOR INJECTION 1 100ML.BAG IVPB SCH (17:18)
[2024-01-20 18:07] LABS: Glucose,Whole Blood 165 mg/dL (70-110)
--- NOTE | 2024-01-20 20:50 | P.PN ---
Subjective Progress Note Date: 01/20/24 Patient seen at bedside with at bedside. No acute events. Objective - Vital Signs Vital signs: Vital Signs Temp 99.0 F 01/20/24 15:00 Pulse 87 01/20/24 18:00 Resp 19 01/20/24 18:00 BP 139/97 01/20/24 18:00 Pulse Ox 98 01/20/24 18:00 FiO2 30 01/20/24 11:25 Intake & Output 01/20/24 01/20/24 01/21/24 06:59 18:59 06:59 Intake Total 2358.62 2237.993 Output Total 1495 1700 Balance 863.62 537.993 Weight 100.6 kg 100.6 kg Intake: IV 2080 1980 0.9 Normal Saline @ KVO 110 Ciprofloxacin/Dextrose 400 Pmx 400 mg In Dextrose/ Water 1 200ml.bag @ 200 mls/hr IVPB Q8H [facility] Rx#: [id number] Fluconazole in NaCl,Iso- 200 Osm 200 mg In Saline 1 100ml.bag @ 100 mls/hr IVPB DAILY [facility] Rx#: [id number] Potassium Chloride 10 meq 200 In Water For Injection 1 100ml.bag @ 100 mls/hr IVPB Q1H [facility] Rx#: [id number] Sodium Chloride 0.9% 1, 600 290 000 ml @ 50 mls/hr IV . Q20H [facility] Rx#:[id number] TPN 1080 1080 Tobramycin Sulfate 600 mg 100 In Sodium Chloride 0.9% 100 ml @ 115 mls/hr IVPB Q48H [facility] Rx#:[id number] Intake, IV Titration 278.62 257.993 Amount Dexmedetomidine/0.9% NaCl 278.62 257.993 (Pmx) 400 mcg In Empty Bag 1 bag @ 0.2 MCG/KG/HR 5.2 mls/hr IV .[id number] [facility] Rx#:[id number] Output: Chest Tube Drainage 50 Chest Tube Right 50 Drainage 0 220 Medial Abdomen 0 0 Right Abdomen 100 Right Upper Posterior 120 Chest Urine 1445 1480 Other: Voiding Method Indwelling Catheter Indwelling Catheter ABP, PAP, CO, CI - Last Documented Arterial Blood Pressure 173/76 - Constitutional General appearance: Present: no acute distress - Gastrointestinal Gastrointestinal Comment(s): Soft, midline incision with wound VAC in place, J-tube in place with some drainage around site - Labs CBC & Chem 7: 01/20/24 05:56 01/20/24 05:56 Labs: Abnormal Lab Results - Last 24 Hours (Table) 01/20/24 01/20/24 01/20/24 Range/Units 00:12 05:56 05:56 WBC 16.3 H (3.8-10.6) k/uL RBC 2.74 L (4.30-5.90) m/uL Hgb 8.3 L (13.0-17.5) gm/dL Hct 25.3 L (39.0-53.0) % RDW 16.8 H (11.5-15.5) % Neutrophils # 11.4 H (1.3-7.7) k/uL Sodium 130 L (137-145) mmol/L BUN 30 H (9-20) mg/dL Creatinine 0.65 L (0.66-1.25) mg/dL Glucose 152 H (74-99) mg/dL POC Glucose (mg/dL) 180 H (70-110) mg/dL Calcium 7.2 L (8.4-10.2) mg/dL Alkaline Phosphatase 194 H (38-126) U/L Albumin 2.2 L (3.5-5.0) g/dL 01/20/24 01/20/24 Range/Units 06:41 18:06 WBC (3.8-10.6) k/uL RBC (4.30-5.90) m/uL Hgb (13.0-17.5) gm/dL Hct (39.0-53.0) % RDW (11.5-15.5) % Neutrophils # (1.3-7.7) k/uL Sodium (137-145) mmol/L BUN (9-20) mg/dL Creatinine (0.66-1.25) mg/dL Glucose (74-99) mg/dL POC Glucose (mg/dL) 195 H 165 H (70-110) mg/dL Calcium (8.4-10.2) mg/dL Alkaline Phosphatase (38-126) U/L Albumin (3.5-5.0) g/dL Assessment and Plan Plan: -[facility] is working on transferring patient to [facility] -At this time, patients J tube site fistula is mature and it is of no harm to the patient if the J tube has been pulled back as the patient has not been getting any tube feeds. Please do not adjust J tube. Patients nutritional support will be from TPN. -Wound VAC scheduled changes. If patient cannot go to [facility] with the wound VAC can do wet-to-dry dressings on midline incision wound -Continue supportive care -Continue TPN for nutrition support - All questions answered at bedside with and daughter
[2024-01-20 23:35] LABS: Glucose,Whole Blood 193 mg/dL (70-110)
[2024-01-21 05:09] LABS: Glucose,Whole Blood 156 mg/dL (70-110)
--- NOTE | 2024-01-21 05:47 | PN ---
PROGRESS NOTE DATE OF SERVICE: 01/20/2024 SUBJECTIVE: This is a 73-year-old gentleman, who was admitted here for 69 days, is on mechanical ventilation. The patient had tracheostomy also. The sensorium has improved significantly and currently the patient also had pneumonia and the patient is being worked up for possible referral to [facility] at this time. The most recent chest x-ray which I reviewed personally showed bilateral lesions mostly on the right side. PAST MEDICAL HISTORY: Reviewed. REVIEW OF SYSTEMS: Could not be taken. CURRENT MEDICATIONS: Reviewed. PHYSICAL EXAMINATION: VITAL SIGNS: Pulse is 78, blood pressure is 140/91, respirations 14. HEENT: Conjunctivae normal. NECK: No JVD. CARDIOVASCULAR: S1, S2. RESPIRATIONS: Breath sounds diminished at the bases. A few scattered rhonchi. ABDOMEN: Soft. NERVOUS SYSTEM: Nonfocal. LABORATORY DATA: Reviewed. ASSESSMENT: 1. Acute bilateral aspiration pneumonia, right more than the left with possible sepsis present on admission. 2. Acute hypoxic respiratory failure on mechanical ventilation. 3. Status post tracheostomy. 4. Right lung abscess with pigtail catheter. 5. Change in mental status, metabolic encephalopathy. 6. Multiple complex medical issues. RECOMMENDATIONS AND DISCUSSION: I recommend to continue current management and continue symptomatic treatment. I would recommend repeat labs. Continue with antibiotics. Closely follow with multiple consultants, otherwise possible referral to [facility]. Guarded prognosis. Further recommendations to follow. Dr. Rowe will follow. MMHAILEYL / IJN: [id number] /
[2024-01-21 06:25] LABS: Anisocytosis Slight; Basophils % (A) 0 %; Eosinophils # (A) 0.2 k/uL (0-0.7); Eosinophils % (A) 1 %; HCT 24.4 % (39.0-53.0); HGB 7.8 gm/dL (13.0-17.5); Hypochromasia Moderate; Lymphocytes # (A) 2.9 k/uL (1.0-4.8); Lymphocytes % (A) 17 %; MCH 29.8 pg (25.0-35.0); MCHC 32.1 g/dL (31.0-37.0); MCV 92.7 fL (80.0-100.0); Mean Platelet Volume 7.1; Monocytes % (A) 6 %; Neutrophils # (A) 12.4 k/uL (1.3-7.7); Neutrophils % (A) 74 %; Platelet Count 353 k/uL (150-450); RBC 2.63 m/uL (4.30-5.90); RDW 16.7 % (11.5-15.5); WBC 16.6 k/uL (3.8-10.6)
[2024-01-21 06:39] LABS: African American GFR (CKD) >90 (>60 ml/min/1.73 sqM); Anion Gap 6 mmol/L; Blood Urea Nitrogen 27 mg/dL (9-20); Calcium 7.3 mg/dL (8.4-10.2); Carbon Dioxide 21 mmol/L (22-30); Chloride 102 mmol/L (98-107); Glucose 168 mg/dL (74-99); Magnesium 1.4 mg/dL (1.6-2.3); Non-African American GFR(CKD) >90 (>60 ml/min/1.73 sqM); Phosphorus 3.9 mg/dL (2.5-4.5); Potassium 3.7 mmol/L (3.5-5.1); Sodium 129 mmol/L (137-145)
[2024-01-21] MEDS: ONDANSETRON 4 MG/2 ML VIAL IVP PRN (07:03)
[2024-01-21] MEDS: POTASSIUM CHLORIDE 10 MEQ in WATER FOR INJECTION 1 100ML.BAG IVPB SCH (07:03)
[2024-01-21] MEDS: MAGNESIUM SULFATE-D5W PMX 1 GM in DEXTROSE/WATER 1 100ML.BAG IVPB SCH (07:03)
--- NOTE | 2024-01-21 10:04 | P.PN ---
Subjective Patient is seen in follow-up for acute kidney injury. Patient underwent exploratory laparotomy with small bowel obstruction NG tube replacement Sep tem2023. Nonoliguric. Started on hemodialysis November 29, 2023. Last dialysis December 18, 2023. Status post tracheostomy December 10, 2023. Renal function has improved and is back to baseline. Receiving TPN. Off vasopressors. Underwent drainage of lung abscess January 07, 2024. Hemoglobin improved post blood transfusion. Awaits transfer to LTAC. Vital signs stable. General: Resting in bed. HEENT: Tracheostomy noted. LUNGS: Scattered rhonchi. Chest tube noted. HEART: Regular rate and rhythm. ABDOMEN: No drainage. EXTREMITITES: Trace edema. Objective - Vital Signs Vital signs: Vital Signs Temp 98.9 F 01/21/24 06:00 Pulse 84 01/21/24 07:58 Resp 26 H 01/21/24 07:00 BP 123/99 01/21/24 07:00 Pulse Ox 98 01/21/24 07:00 FiO2 30 01/21/24 07:47 Intake & Output 01/20/24 01/21/24 01/21/24 18:59 06:59 18:59 Intake Total 2237.993 1284.24 Output Total 1700 1540 80 Balance 537.993 -255.76 -80 Weight 100.6 kg 105.3 kg Intake: IV 1980 1100 0.9 Normal Saline @ KVO 110 110 Fluconazole in NaCl,Iso- 200 Osm 200 mg In Saline 1 100ml.bag @ 100 mls/hr IVPB DAILY [facility] Rx#: [id number] Potassium Chloride 10 meq 200 In Water For Injection 1 100ml.bag @ 100 mls/hr IVPB Q1H [facility] Rx#: [id number] Sodium Chloride 0.9% 1, 290 0 000 ml @ 50 mls/hr IV . Q20H [facility] Rx#:[id number] TPN 1080 990 Tobramycin Sulfate 600 mg 100 In Sodium Chloride 0.9% 100 ml @ 115 mls/hr IVPB Q48H [facility] Rx#:[id number] Intake, IV Titration 257.993 184.24 Amount Dexmedetomidine/0.9% NaCl 257.993 184.24 (Pmx) 400 mcg In Empty Bag 1 bag @ 0.2 MCG/KG/HR 5.2 mls/hr IV .[id number] [facility] Rx#:[id number] Output: Drainage 220 170 80 Medial Abdomen 0 0 0 Right Abdomen 100 140 50 Right Upper Posterior 120 30 30 Chest Urine 1480 1370 Other: Voiding Method Indwelling Catheter Indwelling Catheter ABP, PAP, CO, CI - Last Documented Arterial Blood Pressure 173/76 - Labs CBC & Chem 7: 01/21/24 06:16 01/21/24 06:16 Labs: Abnormal Lab Results - Last 24 Hours (Table) 01/20/24 01/20/24 01/21/24 Range/Units 18:06 23:33 05:08 WBC (3.8-10.6) k/uL RBC (4.30-5.90) m/uL Hgb (13.0-17.5) gm/dL Hct (39.0-53.0) % RDW (11.5-15.5) % Neutrophils # (1.3-7.7) k/uL Sodium (137-145) mmol/L Carbon Dioxide (22-30) mmol/L BUN (9-20) mg/dL Creatinine (0.66-1.25) mg/dL Glucose (74-99) mg/dL POC Glucose (mg/dL) 165 H 193 H 156 H (70-110) mg/dL Calcium (8.4-10.2) mg/dL Magnesium (1.6-2.3) mg/dL 01/21/24 01/21/24 Range/Units 06:16 06:16 WBC 16.6 H (3.8-10.6) k/uL RBC 2.63 L (4.30-5.90) m/uL Hgb 7.8 L (13.0-17.5) gm/dL Hct 24.4 L (39.0-53.0) % RDW 16.7 H (11.5-15.5) % Neutrophils # 12.4 H (1.3-7.7) k/uL Sodium 129 L (137-145) mmol/L Carbon Dioxide 21 L (22-30) mmol/L BUN 27 H (9-20) mg/dL Creatinine 0.59 L (0.66-1.25) mg/dL Glucose 168 H (74-99) mg/dL POC Glucose (mg/dL) (70-110) mg/dL Calcium 7.3 L (8.4-10.2) mg/dL Magnesium 1.4 L (1.6-2.3) mg/dL Assessment and Plan Plan: Assessment: 1. Acute kidney injury secondary to ATN secondary to septic shock. Creatinine 0.86 on admission and up to 5.38 dated November 29, 2023. Urine output improved, now nonoliguric. UA fairly benign. No hydronephrosis noted on imaging. Started on hemodialysis November 29, 2023 due to volume overload. Patient initially had a right femoral catheter placed which subsequently became occluded and a left tunneled femoral catheter was placed December 06, 2023. Renal function back to baseline. 2. Perforated small bowel status post exploratory laparotomy with abdominal washout, small bowel resection and J-tube replacement November 25, 2023. 3. A-fib with RVR. s/p amiodarone drip. Also received digoxin this admission. 4. Recently diagnosed gastric B-cell lymphoma. 5. Septic shock. Likely abdominal source. On IV antibiotics. Blood culture positive for staph. ID following. Dialysis catheter removed. 6. Hypocalcemia secondary to acute kidney injury. Replaced. Improved. 7. Metabolic acidosis secondary to acute kidney injury, TPN. 8. Volume overload. Improved with diuresis and ultrafiltration. 9. Status post tracheostomy December 10, 2023. 10. Anemia. Component of chronic illness and acute blood loss. Received blood transfusions and DDAVP this admission. 11. Hypernatremia from lack of oral water intake. Status post D5W. Resolved. No sodium on the lower side. Receiving meds with hypotonic solution. 12. Hypokalemia from poor intake. Being replaced as needed. 13. Hypomagnesemia from poor intake. Being replaced. Plan: Last dialysis December 18, 2023. No further need at this time. Dialysis catheter removed December 28, 2023. Receiving TPN. Avoid nephrotoxins. Preserved EF noted on echocardiogram. Replace electrolytes as needed. Lasix as needed. Aranesp discontinued as patient does not have CKD. Prognosis guarded.
--- NOTE | 2024-01-21 11:08 | P.PN ---
Subjective Progress Note Date: 01/21/24 Principal diagnosis: Abdominal pain. This is a 73-year-old white male with history of chronic abdominal pain for the last 8 months has been treated with Protonix 40 mg daily for the last 3 months with no improvement. Patient had a 22 pound weight loss in the last [address] of the abdomen and pelvis 3 weeks ago showed thickening of the antral wall with pathological adenopathy posterior to the stomach suspicious of neoplasm. Today the patient underwent elective upper endoscopy to evaluate further, patient received IV sedation by anesthesia endoscope was inserted into the mouth, esophagus was intubated without any difficulty there was evidence of large amount of liquid and solid food noted in the stomach suggestive of gastric outlet obstruction. Scope could not be advanced through the pylorus, however in the prepyloric area there was a large superficial ulceration identified with multiple biopsies were done from this area. The body cardia and fundus could not adequately visualize because of large amount of retained food in the stomach. Scope was withdrawn back to the stomach and upon careful examination the mucosa of the antrum body and cardia as well as the fundus appeared normal. Procedure was being performed and biopsies were done patient threw up and subsequently became hypoxic there was clearly evidence of witnessed aspiration anesthesia intubated the patient, procedure was terminated, and the patient was transferred to the ICU, this consult was initiated. Patient is now on assist- control rate of 20 tidal volume 500 FiO2 70% PEEP of 10 ABG is pending, earlier ABG showed profound hypoxia patient is on propofol at 50 mcg/kg/min, next ABG is pending. Chest x-ray showed chronic changes without evidence of acute pulmonary disease. Patient was seen and examined today on 11/13/2023, remains in the ICU, intubated mechanically ventilated, on assist-control rate of 20 tidal volume 500 FiO2 50% and PEEP of 10 ABG showed a pO2 of 143 pCO2 47 pH of 7.28 hence PEEP was cut down to 6, and increased rate to 22. Patient is still requiring IV fluid at 100 cc/h/LR. Requiring norepinephrine at 0.08 mcg/kg/min he is also on propofol at 50 mg/kg/min antibiotics arce patient is receiving Zosyn. Chest x-ray is showing worsening infiltrates specially in the left lung. This could be related to aspiration pneumonia. Patient had witnessed aspiration during endoscopy/upper endoscopy.WBC count is 14 hemoglobin 7.6 basic metabolic profile is normal BUN is 26 creatinine 1.57 obviously the patient sustained some acute kidney injury baseline creatinine 0.86 patient had received fluids over the last 24 hours, remains on fluids at 100 cc/h Patient with seen and examined today on 11/14/2023, patient remains in the ICU, intubated and mechanically ventilated. Failed weaning trial yesterday and he became quite agitated and desaturated once he went off propofol. Had to be placed back on assist-control mode of mechanical ventilation and sedation. Today the patient is on assist-control rate of 22 tidal volume 500 FiO2 50% PEEP of 6. ABG showed a pO2 of 123 pCO2 51 pH of 7.32, and I cut down his FiO2 down to 45%, patient is receiving a unit of packed RBCs for hemoglobin of 6.9 today. Patient had an episode of A-fib RVR at 3 AM in the morning, seen by cardiology, and recommended patient goes on amiodarone. Still requiring norepinephrine at 0.05 mg/kg/min, he is on LR at 100 cc/h propofol at 50 mg/kg/min. Remains empirically on Zosyn for aspiration pneumonia. My plan today is transitioning the patient to Precedex, hopefully discontinue propofol, and at least give the patient a decent weaning trial or at least check weaning parameters before we proceed to weaning trial. Chest x-ray continues to show evidence of pneumonia mostly in the left lung and left lower lobe more specifically. Some pulmonary vascular congestion is noted with interstitial edema, small pleural effusion is also noted/left side. WBC count today is 12 hemoglobin 6.9 basic metabolic profile is normal bicarb is 25, BUN is 25 creatinine is improving down to 1.21 from 1.57 yesterday Patient was evaluated today on 11/15/2023, patient remains in the ICU, he was extubated yesterday, and his extubation was relatively uneventful. However the patient continues to have nasogastric tube in place, his pathology report came back showing non-Hodgkin's lymphoma, patient has gastric outlet obstruction, and the recommendation by GI is to consult surgery for a jejunostomy tube which is appropriate. Patient will be seen today by oncology and [facility] In the meantime patient is comfortable, he is on 5 L nasal cannula he has LR running at 100 cc/h, he is remains on Zosyn for aspiration pneumonia remains on amiodarone which was started by cardiology for atrial fibrillation with RVR, presently in sinus rhythm. Cannot switch him to oral because of the fact that remains n.p.o., patient remains on TPN. WBC count is 10.7 hemoglobin 7.5 electrolytes are normal renal profile is normal, creatinine normalized to 0.96 Patient was evaluated today on 11/16/2023, remains in the ICU, on 5 L nasal cannula remains on amiodarone at 0.5 mg/min remains on LR at 100 cc/h, however his chest x-ray is showing some component of interstitial edema or could be findings related to his recent episode of aspiration/aspiration pneumonia, nonetheless the patient seems to be a bit symptomatic, he has intermittent cough and wheezing, I am recommending Lasix 40 mg IV push, cut down his IV fluid to 50 cc/h, continue Zosyn, patient will be placed on DuoNeb updrafts and on Solu- Medrol. Patient is scheduled to have jejunostomy-tube placement today. WBC count is 13 hemoglobin 7.7 basic metabolic profile is normal and renal profile is normal Patient was evaluated today on 11/17/2023, patient underwent uneventful placement of a jejunostomy tube yesterday, in the ICU on 5 L, patient is relatively stable, not in any distress, patient continues to have nasogastric tube in place although he did have a J-tube placed yesterday. Patient was seen by oncology for his non-Hodgkin's lymphoma involving the gastric outlet. Today's x-ray showed evidence of pneumonia/bilateral interstitial infiltrate/edema patient was given a dose of Lasix, I reminded the patient had an aspiration episode which was significant. And he required intubation mechanical ventilation for a few days.WBC count today is 9.1 hemoglobin 7.9 electrolytes are normal renal profile is normal hence I plan to transfer the patient out of the ICU to a cardiac floor. And hopefully discharge planning in the next 2 days for The patient was seen today November 18, 2023 in follow-up in the intensive care unit. He is currently sitting up in bed. Awake and alert in no acute distress. He is maintaining O2 saturations in the 90s on 5 L/min per nasal cannula. Glucose 177. Remains on DuoNeb inhalations and Solu-Medrol. Antibiotics in the form of Zosyn. He has a J-tube in place. He was initiated on vital AF 1.2 at 10 mL an hour with a goal of 82 mL/h The patient is seen today November 19, 2023 in follow-up in the intensive care unit. He is a regular medical floor overflow patient. He is currently sitting up in a chair. Awake and alert in no acute distress. He is maintaining O2 saturations in the 90s on 5 L/min per nasal cannula. No IV fluids. He denies any worsening shortness of breath, cough or congestion. He is having some issues with diarrhea. He remains on Zosyn. He is receiving vital AF at 55 mL/h with a goal of 82 mL/h. Glucose 161. Solu-Medrol, DuoNeb inhalations. The patient is seen today November 20, 2023 in follow-up on the regular medical floor. He is currently up in a chair at the bedside. Awake and alert in no acute distress. Denies any worsening shortness of breath, cough or congestion. He is maintaining O2 saturation in the 90s on 3 L/min per nasal cannula. He continues on Zosyn. Continues on bronchodilators and steroids. White count 12.3. Hemoglobin 9.0. Platelets 258. Glucose 168. He is not tolerating his tube feeds as he has developed diarrhea. C. difficile screen was negative. Abdominal series revealed cardiomegaly with left basilar acute infiltrate and/or atelectasis. Overall nonspecific bowel gas pattern. A small bowel obstruction needs to be considered. Progress note dated November 21, 2023. The patient is seen in room 517. The patient is currently on 3 L of oxygen. He continues on Zosyn. His biggest complaint has been abdominal discomfort and diarrhea. He did have a CT scan of the abdomen and pelvis. Current laboratory data includes a white count of 14.4, hemoglobin 8.8, hematocrit 28.7, and platelet count 229,000. Sodium 139, potassium 4.1, chlorides 103, CO2 30, BUN 42, creatinine 0.94. Glucose is 158. Calcium is 8.5. Progress note dated November 22, 2023. 73-year-old male seen in room 517. He currently is on 2 L of oxygen. Room air saturation was 89%. Chest CT shows bilateral patchy infiltrates. He continues on Zosyn. He is still not taking anything by mouth. No new laboratory data today other than a glucose of 138. Gram stain was negative. Progress note dated November 23, 2023. 73-year-old male seen in room 517. He is resting comfortably without com plaints. He continues on saline at 10 cc an hour, tube feedings with Pivot at 20 cc an hour, Zosyn, and 2 L by nasal cannula. He has had an uneventful night. Laboratory data today includes a white count 14.5, hemoglobin 9.7, hematocrit 31.4, and a platelet count of 242,000. Sodium 138, potassium 3.7, chlorides 106, CO2 26, BUN 39, creatinine 0.95. Glucose is 181. Calcium is 8.5. Sputum sampling was negative. Progress note dated November 24, 2023. 73-year-old male who is seen in room 517. The patient has been having significant abdominal discomfort, and went for a evaluation, ordered by surgery today, to determine whether or not the feeding tube, was in proper position, and whether or not there is anything acutely going on in the abdomen. He had been having diarrhea. He is on 3 L of oxygen. He has been here for 12 days. This is a patient, that had a prior EGD, aspirated, because of gastric outlet obstruction, and was diagnosis of non-Hodgkin's lymphoma. He is currently on Zosyn, DuoNebs, and Solu-Medrol. He has been NPO. Chest x-ray showed a left lower lobe infiltrate. Abdominal x-ray showed multiple air-fluid levels. CT of the abdomen showed multiple dilated small bowel loops, consistent with obstruction, pneumoperitoneum, ascites, and cholelithiasis. White count was 14.1, hemoglobin 8.9, hematocrit 29.5, and platelet count was 255,000. Glucose was 143. 11/25/2023, the patient is being seen in the intensive care unit. The patient is critically ill, n.p.o., he has an NG tube in place. Following the NG tube insertion, there was a total of 2.0 L of output and the patient's J-tube was also draining approximately 200 cc over the past 8 hours. Continues to have abdominal pain which is rather diffuse and the patient has direct abdominal tenderness. CAT scan of the abdomen was noted and was consistent with small bowel obstruction. The patient has a stomach that was inflated and in the same time there were multiple loops of small bowel distended with fluid. This extended to the pelvis. J-tube with contrast nondilated small bowel loops within the mid abdomen. Additional loops of small bowel were seen that was dilated. There was some contrast in the right lower quadrant and contrast was also in the cecum. No transition point was identified. The dilated loops of the bowel appeared to be in the proximal jejunum and distal to the duodenum. General surgery is on the case the patient will be taken to the operating room for another exploratory laparotomy. Noted the CAT scan of the abdomen also showed pneumoperitoneum and small amount of ascites and cholelithiasis. Hemodynamically, the patient is currently on normal saline at rate of 75 cc an hour. He is hypotensive and is going to be started on pressors. He is on 4 L of oxygen by nasal cannula. He also has sustained acute kidney injury. Blood work from today shows a rise in the creatinine which is currently up to 2.5 with a BUN of 57. Serum bicarb is at 14 with an anion gap of 11. The patient WBC count is at 8.2 with a hemoglobin of 12.3 and a platelet count of 188. Chest x- ray from this morning is showing a right-sided port and a stable left lung airspace disease and an NG tube being in place. The patient remains on IV Zosyn. The patient is receiving Dilaudid for pain control. The patient remains on IV Solu-Medrol 60 mg every 6 hours. It was noted that the patient's surgical wound over the port has dehisced and there is some serous drainage and erythema at the incision site. Awake and alert and communicating. Family at the bedside. No apparent signs of respiratory distress at this point. 11/26/2023, the patient is being seen in follow-up. Events from yesterday was noted and the patient was taken to the operating room for exploratory laparotomy. The patient was found to have large amount of free fluid noted in the abdomen and there was significant contamination. There was perforation of the small bowel with the balloon of the previously inserted jejunostomy tube penetrating through the perforation. As such, the tube was removed, abdominal washout was done. Small bowel resection was done and the patient had a nodular jejunostomy tube inserted. Postop, the patient was extubated he was unable to tolerate extubation and the patient was kept intubated on mechanical ventilator and he was brought back to the intensive care unit. He is currently postop day #1 following his small bowel resection. Abdominal surgical wound site is dry c lean and intact. This morning, the patient remains sedated on propofol which is currently running at 35 mcg/kg/min. He is on assist-control mode of mechanical ventilation at rate of 28, tidal volume of 550, FiO2 of 60% with a PEEP of 5. Blood gas from today shows a pH of 7.35 with a pCO2 44 and pO2 of 88. Chest x- ray shows adequate positioning of the orotracheal tube. The patient has a Mediport on the right and a subclavian triple-lumen catheter on the left and the patient has persistent bilateral pleural effusion and infiltrates in lung base bilaterally. Hemodynamically, the patient remains in shock. He has been on high-dose norepinephrine which is currently running at 0.28 mcg/kg/min and the patient is also on vasopressin at 0.03 units an hour. He is IV fluids are in the form of bicarb infusion running at rate of 150 cc an hour. He is in sinus tachycardia. NG tube output has been 250 cc over the past 8 hours and the output from the J-tube is minimal at this point in time. Urine output is quite diminished as the patient has also sustained acute kidney injury. Overall fluid balance is +4.9 L over the past 24 hours. The patient's white cell count of 5.7 with a hemoglobin 9.9 and platelet count of 172. BUN is 72 with a creatinine of 2.8 and sodium levels at 143. The calcium level is at 6.5. LFTs are normal. Triglyceride level is at 315. On 11/27/2023, the patient remains critically ill. Remains intubated and on mechanical ventilator, still awaiting shock which is essentially septic shock. Remains on propofol which is running at 50 mcg/kg/min. Remains on the mechanical ventilator, assist-control mode with rate of 28, tidal volume of 550 with an FiO2 of 60% with a PEEP of 5. Blood gas shows a pH of 7.29 with a pCO2 of 47 and pO2 of 78. The patient had a follow-up chest x-ray that showed lower lobe consolidation slightly worse on the right and the orotracheal tube is in a good location. Urine output is diminished in the order of 5 to 10 cc an hour and the patient is also developing progressive worsening renal function. Remains on normal citrate of 150 cc an hour and the patient was started on TPN which is running at 30 cc an hour. He has a triple-lumen catheter in his left subclavian. Overall fluid balance over the past 24 hours is +3.9 L. Output from the NG tube and the J-tube is minimal. Hemodynamically, he is hypotensive and norepinephrine running at 0.45 mcg/kg/min. Vasopressin is a physiologic dose. He received amiodarone and he remains on maintenance amiodarone of 0.5 mg/min and the patient continues to be in atrial fibrillation and is having episodes of tachycardia. The white cell count is at 13, hemoglobin 9.4 platelet count is pending. The patient's BUN is 83 with a creatinine of 3.7. Sodium is at 140 with a potassium level of 5.5 dropped down to 4.4 as the sample was hemolyzed. LFTs are normal. Abdominal wound is dry clean and intact. RAYA drainage is essentially serous at this point in time. 11/28/2023, the patient is being seen for a follow-up. The patient remains intubated on mechanical ventilator. This morning, the patient tolerated propofol drip running at 50 mcg/kg/min. The patient is on mechanical ventilator assist-control mode with rate of 28, tidal volume of 550, FiO2 55% with a PEEP of 5. Chest x-ray shows stable findings with lower lobe consolidations bilaterally. Blood gas shows a pH of 7.32 with a pCO2 38 and pO2 90. Neuropathy has improved and the patient is producing approximately 30 cc an hour and the overall input output balance is +3.3 L over the past 24 hours. The patient is still on pressors although his pressor requirements have improved since yesterday. He is on norepinephrine which is running at 0.05 mcg/kg/min and vasopressin physiologic dose. Also, the patient on amiodarone drip regarding his chronic ongoing atrial fibrillation. Amiodarone drip is running at 0.5 mg/min. Nevertheless, the rate is under much better control. Noted the patient was given a dose of digoxin 0.5 mg IV yesterday which helped with rate control. Remains on normal citrate of 150 cc an hour. Remains on TPN at 40 cc an hour. Output from the J-tube is fecal. Output from the NG tube is more gastric. Surgical wound site is dry clean and intact. Sputum Gram stain and culture showing Pseudomonas and Citrobacter. Note that the Citrobacter was intermediate resistance to Zosyn. This will be discussed further with infectious disease. Blood cultures are still pending for now. They have negative based on the most recent check. Blood work from today shows WBC count 11.2, hemoglobin 7.9 and platelet count of 46. Sodium is at 140, potassium is at 4.3, chloride is 114 with a bicarb of 18. He has 93 and the creatinine is 4.8. Serum random vancomycin level is at 25.7. On 11/29/2023, the patient is being seen for a follow-up. Remains intubated on the mechanical ventilator. The patient sedated on propofol which is running at 35 mcg/kg/min. Synchronous with mechanical ventilator. On today's evaluation, he is on assist-control mode with rate of 28, tidal volume of 550, FiO2 55% with a PEEP of 5. Chest x-ray shows lower lobe consolidation bilaterally worse on th e right and the orotracheal tube is in good location. The blood gas showed a pH of 7.34 with a pCO2 of 35 and a pO2 of 84. No significant orotracheal secretions. Hemodynamically improved compared to yesterday. In fact, the patient is on minimal norepinephrine that was discontinued earlier this morning. The patient has converted to normal sinus rhythm. Remains on amiodarone at 0.5 mg/min. Overall fluid balance over the past 24 hours is 2.4 L positive. Urine output has been adequate and the patient is currently on IV Lasix. Nevertheless, the patient has developed progressive worsening renal function. Creatinine is up to 5.3 on today's evaluation with a potassium level of 4.4. Serum bicarb is at 18 with an anion gap of 9. WBC count is at 8.1 with a hemoglobin of 7 and a platelet count of 32 which has dropped compared to earlier evaluation. The rest of the coagulation profile was normal from 11/28/2023. Fibrinogen level is slightly elevated. Sputum samples have shown a combination of Citrobacter and Pseudomonas aeruginosa. Based on cultures and sensitivities, the patient will be taken off his IV Zosyn and he will be switched to IV meropenem. Output from the J-tube is fecal. Output from the NG tube is gastric and surgical wound site is dry clean and intact. He is afebrile for now. Hemodynamically, the patient is doing better. He remains on TPN for nutritional support. IV fluids are also running at a rate of 75 cc an hour. Remains on vancomycin. 11/30/2023, the patient is being seen for a follow-up. The patient remains on propofol at 50 mcg/kg/min. Ventilator settings are essentially unchanged. The patient remains on assist-control mode with rate of 18, tidal volume of 400, FiO2 50% with a PEEP of 5. The blood gas showed a pH of 7.37 with a pCO2 of 43 and pO2 of 127. Chest x-ray shows no significant interval change. Patient remains on normal saline at rate of 75 cc an hour and TPN at rate of 35 cc an hour. Fluid balance is positive. Hemodialysis was performed yesterday and the second session of hemodialysis to be done today. The patient's urine output is in the order of 20 to 30 cc an hour. The patient has an NG output of 350 cc for yesterday and the drainage from the J-tube is in the order of 400 cc over the past 24 hours. The blood work shows a WBC count of 10.8, hemoglobin 8.1 and platelet count of 41. Platelet counts are essentially stable and slightly improved compared to yesterday. The sodium level is at 133, potassium is at 4.3, BUN is 93 with a creatinine of 3.6. LFTs are within normal limits. Albumin is down to 2.1. The patient is currently on no pressors. Norepinephrine and vasopressin are both discontinued and the patient remains in normal sinus rhythm. No other significant events overnight. Family has been updated on his condition. Antibiotic coverage is currently with IV meropenem. Vancomycin and Zosyn have been both discontinued. On 12/01/2023, the patient remains sedated on propofol which is running at 25 mcg/kg/min., Comfortable and synchronous mechanical ventilator. The patient remains on assist-control mode rate of 28, tidal volume of 550, FiO2 40% and PEEP of 5. Blood gas shows a pH of 7.49 with a pCO2 of 34 and pO2 of 121. Patient underwent hemodialysis yesterday. No plans for hemodialysis today the patient is producing urine output. Remains on TPN for nutrition support rate of 75 cc an hour. IV fluids are currently at KVO. The chest x-ray from today shows bilateral lower lobe consolidation worse on the right. No significant change in the volume status. The patient continues to have third spacing and edema in all 4 extremities. Nevertheless, urine output is adequate at this point in time and the patient remains on Lasix 80 mg IV every 12 hours. Remains NPO. NG tube and J-tube are both drainage. Output is noted. Remains on IV meropenem. Afebrile. Currently on no pressors. Blood work shows a WBC count of 11.4, hemoglobin of 8.1 and platelet count of 46. Sodium is at 131, potassium level is at 3.7, chloride 101 and bicarb is at 24. BUN is 84 with a creatinine of 3.6. Glucose of 228. LFTs are within normal limits. Patient was reevaluated today on 12/02/23, patient remains in the ICU, patient is familiar to my service, I saw this patient 3 weeks ago. Since then he had a very complicated hospital course, related to his jejunostomy tube dislodging and leaking and picture of abdominal sepsis and worsening pneumonia/ARDS. Patient had to be placed back on mechanical ventilation, and he is now intubated and mechanically ventilated. He is on assist-control rate of 20 tidal volume 550 FiO2 40% PEEP of 5 ABG showed a pO2 of 111 pCO2 38 pH of 7.43 and I cut down his FiO2 to 35% and increase his flow rate from 60-70. Patient remains on TPN at 75 cc/h he is on propofol at 25 mcg/kg/min patient is on Cleviprex which I added today for elevated blood pressure. Receiving Lasix 80 mg every 12 hours is also on Merrem as per infectious disease. Patient is on hemodialysis and being followed by nephrology. Patient required multiple abdominal surgeries since his initial admission. Chest x-ray continues to show worsening pneumonia involving both lungs, right more so than left, I suspect there may be a component of ARDS. His initial presentation was the presentation of aspiration pneumonia to begin with and that was 3 weeks agoWBC count is 10.3 hemoglobin 8.6 sodium 131 potassium 4 chloride 100 bicarb 23 BUN is 111 creatinine 4.02 blood sugar is 248. Albumin is 1.9 Patient was evaluated today on , patient remains in the ICU, intubated and mechanically ventilated. Patient is on assist-control rate of 20 tidal volume 550 FiO2 35% and PEEP of 5 ABG showed a pO2 of 99 pCO2 39 pH of 7.44 patient is undergoing hemodialysis today, and the plan is to remove 2 L. He is remains on propofol at 35 mcg/kg/min, remains on TPN at 75 cc/h. Remains on Merrem. Patient is not requiring any pressors today. Yesterday patient did not tolerate to be off sedation long enough, and today we tried the same sedation interruption, and the patient did not do well post interruption of sedation, became extremely agitated restless, tachycardic, and could not fully assess mental status off sedation. Hence the patient was placed back on AC mode of mechanical ventilation, and the plan is to continue the same supportive care measures. Family updated on his condition and most likely the patient will end up requiring tracheostomy in the next few days.WBC count is 8.5 hemoglobin 8.2 basic metabolic profile is relatively unremarkable BUN is 89 creatinine 3.45 chest x-ray today showed stable chest, suspect some right-sided pleural effusion which would likely improve with hemodialysis/ultrafiltration. X-ray of abdomen showed nonspecific nonobstructive bowel gas pattern Patient was seen today on 12/04/2023, remains in the ICU, intubated mechanically ventilated, on assist-control rate of 20 tidal volume 550 FiO2 35% PEEP of 5 ABG showed a pO2 of 112 pCO2 38 pH of 7.45, hence no changes were made in ventilator settings. Patient is on propofol at 35 mcg/kg/min he is also on IV fluid at KVO TPN at 75 cc/h. Remains on hemodialysis remains on Lasix 80 mg IV push twice daily, remains on Merrem. This x-ray continues to show the same findi ngs/airspace disease in both lungs, not much of a change in the last 2 days, however his oxygenation seems to be improved. WBC count is 7.1 hemoglobin 7.7. Electrolytes are normal, BUN is elevated 77 creatinine 3.32, patient is on hemodialysis. His condition was discussed today with the at bedside, and I do not believe the patient is ready to be weaned or extubated, however he seems to get extremely agitated when he goes off propofol, today I plan to transition propofol to Precedex, give him a trial on Precedex and determine whether the patient becomes more appropriate and at least ready for any weaning trials. Clinically I doubt if this will happen but we will go ahead and try Patient was evaluated today on 12/05/2023, remains in the ICU, intubated mechanically ventilated, not much of a change noted in the last 24 hours. Remains on assist-control of 20 tidal volume 550 FiO2 35% PEEP of 5 ABG showed a pO2 of 90 pCO2 37 pH of 7.48 hence chose not to change any of his ventilator settings. Yesterday the patient failed again trial of weaning, and he was never anywhere near ready to be weaned in spite of placing him on Precedex and off propofol, at 1 point the patient became extremely agitated restless and he was biting on the endotracheal tube could not fully awake the patient and determine improvement in his mental status. Hence patient was placed back on propofol yesterday and he remains on propofol today. He is on propofol at 25 mcg/kg/min he is on TPN at 75 cc/h surgery is considering starting his J-tube feedings today. Remains on hemodialysis remains on Merrem remains on Lasix 80 mg IV push twice daily overall not much of a change his chest x-ray is basically about the same showing bibasilar airspace disease. Today I had a discussion with the regarding the option of tracheostomy extremely reluctant to have it done yet. Said that the patient had multiple complications with previous surgeries and she is afraid that he is going to have another complication with the surgeryWBC count is 10.2 hemoglobin is 8, basic metabolic profile is normal sodium 130 BUN 70 creatinine 2.89 Patient was seen today on 12/06/23, remains in the ICU, intubated mechanically ventilated, his ventilator settings are assist-control rate 20 tidal volume 550 FiO2 35% and PEEP of 5 ABG showed a pO2 of 103 pCO2 36 pH of 7.47 patient opens eyes but does not follow any other instructions. He is now off propofol for the last 24 hours, he is maintained on Precedex at 0.4, TPN at 75 cc/h vital AF at 5 mL/h. Patient remains on Merrem, patient did not receive dialysis today because issues related to occluded dialysis catheter. Nonetheless the patient is making urine, and continues to improve with diuretics. Chest x-ray continues to show bibasilar airspace disease, not much of a post exchange manager the last 1 week.WBC count today is 11.8 hemoglobin is 7.9.Basic metabolic profile is normal BUN is 92 creatinine 3.74. Blood sugar is 226. Family is at bedside, considering his overall mental status at this point, not quite ready to start checking weaning parameters, and is not ready for weaning. Nonetheless I plan to keep him on Precedex, and hopefully avoid narcotics and other sedatives. His mentation starts clearing a bit more, then will start trials of weaning parameters and/or weaning trials Patient was seen today on 12/07/2023, remains in the ICU, intubated and mechanically ventilated, on assist-control rate of 20 tidal volume 550 FiO2 35% PEEP of 5 ABG showed a pO2 of 83 pCO2 33 pH of 7.50 hence the tidal volume was cut down to 500. Patient remains off propofol remains off narcotics is only on Precedex for sedation at 0.6 mg/kg/h. He is on norepinephrine at 0.02 TPN at 75 cc/h IV fluid at KVO vital AF at 10 mL/h is also on Merrem. Neurologically I am concerned about this patient neurological status, does not seem to be waking up much, he opens his eyes but does not follow any instructions and spite of sedation hold for quite some time. Hence I am recommending a CT of the brain and multiple recommending a neurological consultation on this patient. WBC count is 18 7 hemoglobin is 8.4, basic metabolic profile is normal BUN is 75 creatinine 2.95, patient is back on dialysis, he had a new hemodialysis catheter placed yesterday by vascular surgery, and he will be restarted back on hemodialysis. CT of the brain done shortly after evaluating the patient showed no acute intracranial process chest x-ray basically about the same, continues to show small left and moderate right basilar infiltrate. Has not changed much over the last 1 week, patient remains on antibiotics. Patient was seen today on 12/08/2023, remains in the ICU, intubated and mechanically ventilated, remains on assist-control rate of 20 tidal volume 500 FiO2 35% PEEP of 5 ABG showed a pO2 of 88 pCO2 37 pH of 7.47 hence no changes were made in ventilator settings. Chest x-ray is showing slight increase in his right-sided pleural effusion, however his oxygenation seems to be about the same, and the patient is responding to Lasix given at 80 mg IV push every 12 hours, he is also doing well with hemodialysis he had 2 L removed yesterday and 2 L the day before. Hence will not recommend thoracentesis at this point. But the pleural effusion will need to be closely monitored. Patient remains off propofol he is on Precedex at 0.6 mcg/kg/h. For the last 2 days, and his mentation is not much different from baseline. Continues to open his eyes and does not follow any other instructions has the patient is clearly not ready for weaning trials or extubation. Brought up the issue of tracheostomy again with the , she is still reluctant to proceed with tracheostomy on him at this point. Patient remains on Merrem, remains on TPN but his enteral feeding will be advanced today to full goal, and if that happens then we will can discontinue TPN. Patient is receiving vital AF 1.2@10 mL/h at this point.WBC count is 19.3 hemoglobin 7.6. Basic metabolic profile is normal BUN is 72 creatinine 2.99 blood sugar ranging between 250 up to 334. 12/09/23 - patient seen at bedside today, remaining in the ICU, intubated and mechanically ventilated, remaining on assist-control rate of 20, tidal volume 500, FiO2 30%, PEEP of 5 and oxygen saturation of 100%. Patient is on day 27 of his hospital stay (admitted 11/11), day 15 of this current ICU stay (readmit to the ICU 11/24) and day 15 of this current period of time on the ventilator (placed 11/24). ABG showed pO2 100, pCO2 36, pH 7.47. Chest x-ray was deemed to be stable, however possibly with slight improvement noted on the left with a right-sided pleural effusion remains evident however the patient's oxygenation remains to be about the same. Continue to receive 80 mg IV Lasix every 12 hours and is receiving daily hemodialysis, in which he has been having 2 L removed the past couple of days, hemodialysis yet to occur today. His creatinine is 3.57 (compared to 2.99 yesterday) and BUN 98 (compared to 72 yesterday). Due to this response to diuresis and hemodialysis, no thoracentesis recommended at this point however pleural effusion will need to continue to be monitored. Patient shon off propofol, he is on Precedex at 0.4 mcg/kg/h. Due to his mentation remaining near baseline, neurology had been consulted who ordered an EEG which showed diffuse background slowing of his severe degree which is suggestive for generalized cerebral dysfunction and can be seen with toxic metabolic encephalopathy, as well as the presence of sporadic intermittent, some higher amplitude, sharply contoured waves of generalized distribution. Because of this per neurology's recommendation, patient started on Keppra 500 mg twice daily. The patient does seem to be having some improved mentation, with opening his eyes and responding to commands some of this morning. Spontaneous breathing trial to be attempted today, to see if the patient will be able to come off of mechanical ventilation. If that is unable to occur, discussed with the patient as well as his and one of his daughters that a tracheostomy would be the most appropriate next course of action due to the potential dangers of sustained endotracheal intubation for prolonged period of time. The , while reluctant, seem to acknowledge that this is the appropriate course of action. He remains receiving meropenem 1 g nightly. He remains on TPN 75 mL/h, which she has been on since 11/21 (18), but his enteral feeding has been vital 1.2 AF at 10 mL/h with a goal rate of 80 mL/h. Patient drained 60 mg of serosanguineous fluid from his RAYA. His WBCs increased to 21.5 (compared to 19.3 yesterday), hemoglobin dropped to 7.2 (compared to 7.6 yesterday), hematocrit dropped to 22.0 (compared to 22.9 yesterday) and patient procalcitonin remains elevated at 3.07. 12/10/23 - Patient seen at bedside today, remaining in the ICU, intubated and mechanically ventilated, remaining on assist-control rate of 20, tidal volume 500, FiO2 30%, PEEP of 5 and oxygen saturation of 100%. Patient is on day 28 of his hospital stay (admitted 11/11), day 16 of this current ICU stay (readmit to the ICU 11/24) and day 16 of this current period of time on the ventilator (placed 11/24). ABG showed pO2 93, pCO2 37, pH 7.47, showing evidence of a mild metabolic alkalosis. Chest x-ray today showed stable disease compared to yesterday. He received levo overnight due to atypical blood pressure, patient's TPN was up to 120 due to the change in formula. Patient is scheduled to undergo tracheotomy today (12/09) at 16:30. Per the nurse and the overnight staff patient continues to open his eyes and shows some responsiveness to commands. Per nephrology's recommendation dialysis to be held today due to the patient going for the tracheotomy later, as well as the dip in blood pressure seen after yesterday's dialysis session which required Levophed. Patient's Hgb this morning 6.6, will be given 1 unit today, which will be the second unit he has received during his hospital course. Patient's airway resistance noted to be 3.3 cm/L/s, static lung compliance shown to be 45 mL/cm H2O and dynamic compliance 33 mL/cm H2O. 12/11/23 - Patient seen at the bedside, remaining in the ICU, with a tracheotomy tube and mechanically ventilated while receiving dialysis. Patient remains on assist-control rate of 20, FiO2 30%, PEEP of 5 and has an oxygen saturation of 97%. Patient is on day 29 of the hospital stay (admitted 11/11), day 17 of his current ICU stay (readmitted to the ICU 11/24) and day 17 of his current period of time on the ventilator (placed 11/24). ABG today showed pO2 115, pCO2 38, pH 7.44 continuing to show evidence of a mild metabolic alkalosis. Chest x-ray today showed stable disease. Patient had tracheotomy placed yesterday afternoon (12/09) without any complications. Patient has had 3 consecutive days of attempting spontaneous breathing trials in an effort to wean the patient off the ventilator, all of which failed to this point. Beginning today the patient's antibiotics (meropenem) will be discontinued and we will begin weaning his propofol down from 25 mcg/kg/min. As the patient is weaned off of the propofol, 0.5 Dilaudid and 1 mg IV Ativan to be used every 6 hours as needed. Patient is continuing to receive normal saline 20 cc/h, and has a total of 200 mL of serosanguineous fluid from his RAYA drain. TPN to continue at a rate of 120 mL/h additionally tube feeds, which had been held due to the patient receiving s traight catheter yesterday, will be restarted today with an ultimate goal being to receive enteral nutrition at a rate of 80 mL/h. TPN to continue until able to increase the enteral nutrition to at least 50 mL/h, as per the dietitian's recommendation. Will be exploring the possibility of the patient being moved to select specialty. 12/12/23 - Patient seen at the bedside this morning, in ICU room 253, while receiving and EEG, no significant events overnight. Patient remains with tracheotomy and is mechanically ventilated on assist control with a rate of 20, tidal volume 500, FiO2 30%, PEEP of 5 with an oxygen saturation of 98%. Patient is on day 30 of the hospital stay (admitted 11/11), day 18 of his current ICU stay (readmitted to the ICU 11/24) and day 18 of his current period of time with mechanical ventilation (placed in 11/24). ABG today showed pO2 92, pCO2 36, pH is 7.49 continue to show signs of a combined respiratory and metabolic alkalosis. WBC 17.9, Hgb 7.4, Hct 22.6, PLT 151; sodium 133, potassium 4.0, HCO3 27, BUN 88, creatinine 2.96. Chest x-ray done today continuing to show patchy infiltrate throughout the right lung with layering effusion. Patient is continuing to receive normal saline 20 cc/h, continues to receive Dilaudid 0.5 mg IV push every 6 hours as needed, as well as Ativan 1 mg IV every 6 hours as needed. Patient is no longer maintained on propofol. TPN continues at a rate of 120 mm/h and EN vital AF at 30 mL/h with a goal of 40 mL/h. Once goal is reached, TPN can be discontinued and patient will be switched over to Nepro 50 mL/h. Following the patient having 3 consecutive days of attending spontaneous breathing trials and effort to wean, we will begin trying the patient with CPAP and pressure support in effort to wean, today's trial the patient will be placed on PS 5 and PEEP of 5 for 25-45 minutes, or as he is able to tolerate it. Disc ussed with the patient's the importance of continuing to wean the patient's with trials, in an effort to build up some of the strength in his lungs to better be able to tolerate breathing on his own. Will continue to evaluate for possible placement in a long-term acute care facility. 12/13/23 - Patient seen at the bedside this morning, in ICU room 253, with no significant events overnight noted. Patient remains with tracheotomy and is mechanically ventilated on assist control with a rate of 20, tidal volume 500, FiO2 30%, PEEP of 5 with an oxygen saturation of 98%. Patient is on day 30 one of the hospital stay (admitted to 11/11), day 19 of his current ICU stay (readmitted to the ICU 11/24) and day 19 of his current period of time with mechanical ventilation (placed 11/24). ABG today showed pO2 87, pCO2 36, pH 7.48 continue to show signs of a combined respiratory metabolic alkalosis. WBC 17.3, Hgb 8.0, Hct 25.3, PLT 191; sodium 136, potassium 4.1, BUN 116, creatinine 3.17. This x-ray done today continues to show stable disease. Patient had an EEG completed yesterday (12/11) which showed an abnormal EEG, study being limited because of diffuse myogenic artifact. Background slowing suggestive of severe encephalopathy. Otherwise no appreciable epileptiform discharges, focal slowing, or seizure noted during the exam. Patient continues to receive Dilaudid 0.5 mg IV push every 6 hours as needed, as well as Ativan 1 mg IV every 6 hours as needed. Patient's TPN has been stopped, he is not receiving Nepro at 50 mL/h, which is goal. Patient Solu-Medrol has been discontinued, patient now receiving 30 mg prednisone daily. Patient's trial yesterday with CPAP and pressure support with the patient was sent PS of 5 and PEEP of 5, patient tolerated 40 minutes well it was noted that his respiratory rate increased and his minute ventilation also increased during this time. Will continue with another weaning effort today and continue to reassess how the patient tolerates. He will be receiving hemodialysis today, with the plan to hold over the weekend and then reassess Saturday per nephrology. Additionally IV Lasix has been discontinued on this patient, nephrology did state that he may need to resume receiving the Lasix if the urine output tapers. Progress note dated December 14, 2023. The patient is seen today in room 253. The patient remains on the mechanical v entilator. His settings include volume assist-control, rate 20, tidal volume 500, FiO2 30%, PEEP of 5. Blood gases show pO2 of 76, pCO2 of 36, pH of 7.47. The patient is getting saline at 10 cc an hour, and Nepro at 50 cc an hour which is goal. The patient will go back on pressor support of 5 and CPAP of 5 today. Yesterday, he spent 2-1/2 hours on pressure support. The patient did have a tem perature last night. He discussed some purulent drainage at the wound site. I have asked surgeon to come back and see the patient. In addition, the nurse will get blood, urine, sputum, and wound cultures going. He is not on any antibiotics. We will check a procalcitonin level. White count of 16.7, hemoglobin 8.1, hematocrit 24.5, platelet count is normal. Sodium 135, potassium 3.9, chlorides 103, CO2 24, BUN 106, creatinine 3.04. Calcium is 7.1. Magnesium is 2.0. Urine is yellow, with 1+ protein, 6 WBCs, and rare bacteria. Chest x-ray shows a stable chest x-ray, which is largely unchanged. Progress note dated December 15, 2023. 73-year-old male seen again in room 253. The patient remains on mechanical ventilator. Blood gases show pO2 of 78, pCO2 of 36, pH of 7.47. The patient is getting saline at KVO, and Nepro at 50 cc an hour which is goal. The patient did a spontaneous breathing trial yesterday, and went about 6 hours on PSV 5, CPAP of 5. The patient's procalcitonin level was elevated at 1.92. We added back Zosyn. Yesterday we did sputum, blood, urine, and wound cultures. The patient will have another spontaneous breathing trial today. Current labs include a white count 16.3, hemoglobin 7.5, hematocrit 22.6, and a normal platelet count. Sodium 138, potassium 3.5, chlorides 105, CO2 24, BUN 125, and creatinine 3.22. Glucose is 220. Calcium is 6.9. Chest x-ray shows a right- sided pleural effusion, and some similar changes, to the previous x-ray. This is a 73-year-old white male with history of chronic abdominal pain for the last 8 months has been treated with Protonix 40 mg daily for the last 3 months with no improvement. Patient had a 22 pound weight loss in the last [address] of the abdomen and pelvis 3 weeks ago showed thickening of the antral wall with pathological adenopathy posterior to the stomach suspicious of neoplasm. Today the patient underwent elective upper endoscopy to evaluate further, patient received IV sedation by anesthesia endoscope was inserted into the mouth, esophagus was intubated without any difficulty there was evidence of large amount of liquid and solid food noted in the stomach suggestive of gastric out let obstruction. Scope could not be advanced through the pylorus, however in the prepyloric area there was a large superficial ulceration identified with multiple biopsies were done from this area. The body cardia and fundus could not adequately visualize because of large amount of retained food in the stomach. Scope was withdrawn back to the stomach and upon careful examination the mucosa of the antrum body and cardia as well as the fundus appeared normal. Procedure was being performed and biopsies were done patient threw up and subsequently became hypoxic there was clearly evidence of witnessed aspiration anesthesia intubated the patient, procedure was terminated, and the patient was transferred to the ICU, this consult was initiated. Patient is now on assist- control rate of 20 tidal volume 500 FiO2 70% PEEP of 10 ABG is pending, earlier ABG showed profound hypoxia patient is on propofol at 50 mcg/kg/min, next ABG is pending. Chest x-ray showed chronic changes without evidence of acute pulmonary disease. 12/20/2023, the patient is being seen for a follow-up. More alert and awake compared to yesterday. He is able to move his fingers and toes on today's evaluation. Following commands. Nevertheless, his J tube has been clogged and was unable to utilize the tube that has been some leaks around the tube. No abdominal distention. No nausea or emesis. Hemodynamically stable. Will undergo hemodialysis today. He remains on pressure control mode of mechanical ventilation at rate of 16, pressure of 10, +5 PEEP with an FiO2 of 30%. Chest x-ray from today is essentially unchanged with a stable cavity in his right upper lobe. White cell count of 15.7, hemoglobin 7.2, platelet count is 203, blood gas showed a pH of 7.49 with a pCO2 of 33 and pO2 of 73. BUN is 88 with a creatinine 1.89 and sodium is at 141 with a potassium level of 4.1. He is producing adequate amount of urine output. Fluid balance has been -900 cc over the past 24 hours. Normotensive. Remains on a combination of Zosyn and daptomycin. Remains on Levemir insulin 24 units daily. This is currently on hold as the patient has not been able to obtain enteral feeding. Wound VAC still in place. 12/21/2023, the patient remains on the mechanical ventilator. Overnight, the patient experienced discomfort in his abdomen and he was restless. Based on that, the patient was placed on a higher dose of Precedex which is currently running at 0.6 mcg/kg/h. The patient was also asynchronous with the mechanical ventilator and based on that, the patient was switched to an AC mode and currently is at a rate of 16, tidal volume of 400, FiO2 of 30% with a PEEP of 5. The patient is adequately sedated for now. Chest x-ray remains unchanged. Tracheostomy tube in place and the patient is having increased amount of respiratory secretions. J tube needs to be replaced today and this will be done by his general surgery as the tube remains clogged. Urine output is low order of 30 cc an hour. Afebrile. Remains on Zosyn and daptomycin. White cell count is 16.9, hemoglobin 7.4 and a platelet count of 280. Blood gas from today showed a pH of 7.46 with a pCO2 of 36 and pO2 of 82. Sodium levels of 144, BUN is 19 with a creatinine of 2.2 and a serum bicarb is at 23. The abdominal wound remains unchanged. RAYA drain is serosanguineous. 12/22/2023, patient remains on Precedex at 0.4 mcg/kg/min. Arousable. Communicates. Profoundly weak. Remains on the mechanical ventilator with a rig ht lung abscess. SIMV mode mode rate of 16, tidal volume of 400, FiO2 30% with a PEEP of 5, with a pressure support of 8. Blood gas showed a pH of 7.46 with a pCO2 of 32 and a pO2 of 83. Chest x-ray remains unchanged with a right upper lobe cavitating lesion/opacity and a suspected lung abscess. This is rated Pseudomonas and the patient remains on IV Zosyn. He remains on daptomycin. Urine output is in order of 50 cc an hour.. The J-tube was unplugged yesterday. Nevertheless, the tube itself is malfunctioning and there is drainage around the tube requiring dressing changes the dressings being soakedConstantly. The patient's white cell count is 12.3 with a hemoglobin 7.7. Sodium is at 149, BUN 91 with a creatinine of 2.3. Bicarb is at 20. Undergoing hemodialysis periodically. Last hemodialysis was on 12/21/2023. Currently NPO. Abdominal wound is clean and the patient has a wound VAC in place. RAYA drain output is serosanguineous. Patient was seen today on 12/23/2023, remains in the ICU, intubated and mechanically ventilated. Patient is on IMV with pressure support/IMV 16, pressure support of 8, tidal volume 400, PEEP of 5. Patient seems to be doing well with that kind of mode of mechanical ventilation, ABG showed a pO2 of 76 pCO2 28 pH of 7.50. I changed his rate from 16-8 kept him otherwise on the same ventilator settings. Plan to gradually go down on the IMV rate until we can get him on pressure support of 8 and CPAP. Patient is requiring Precedex at 0.4 m cg/kg/h, he is on D5W at 50 cc/h. Remains on antibiotics in the form of daptomycin and Zosyn, chest x-ray continues to show bilateral airspace disease and right upper lobe lung abscess. Continues to have a bit of a leak from his J-tube being addressed by surgery has a wound VAC, and he had a RAYA drain. Mentation arce the patient is a bit more appropriate, opens his eyes, follows very simple instructions, seems to comprehend. Patient has a left brachial PICC line, he also has a left groin hemodialysis catheter. WBC count is 10.1 hemoglobin is 7 sodium is 149 potassium 4 chloride is 121 BUN is 86 creatinine 2.31. Blood sugar is 173. Remains on enteral feeding via J-tube, a bit of a leak is noted, and surgery is to address this. Sputum cultures have grown Klebsiella and Pseudomonas and remains on proper antibiotics Patient was seen and examined today on 12/24/2023, patient remains in the ICU, and mechanically ventilated. On IMV mode of 8 pressure support of 8 tidal volume 400 FiO2 30% and PEEP of 5 ABG showed a pO2 of 81 pCO2 32 pH of 7.45. Patient remains on daptomycin and Zosyn, remains on Precedex at 0.4 mcg/kg/h intermittently receiving Dilaudid for pain. Feeding arce is presently on hold, patient had a leak around the jejunostomy tube, surgery is recommending a trick le feed or TPN if could not use the J-tube. Patient is arousable follows simple instructions, and today I had a chance to get rid of the IMV mode, and I am recommending a pressure support of 8 and CPAP. For the last few hours the patient has been tolerating this mode of mechanical ventilation, however he is not quite ready to go to [facility] at this point. Chest x-ray continues to show significant opacity in the right upper lobe and airspace disease in the right lower lobe. Previously patient had a CT of the chest showing right upper lobe abscess. Again he remains on Zosyn and daptomycin.Labs today showed WBC count of 10.6 hemoglobin 7.8 sodium is 147, patient is now on D5W at 100 cc an hour his bicarb is 19 BUN 74 creatinine 2.08, gradually improving, his last hemodialysis was on the , nephrology is considering removing his dialysis catheter in the left groin and I believe that is appropriate patient was seen and examined today on 12/25/2023, remains in the ICU, intubated and mechanically ventilated. Patient had to be placed back on assist-control mode of mechanical ventilation yesterday, mostly because he developed significant agitation and restlessness, and ongoing persistent cough with some air leak from the cough of that tracheostomy. Patient had to be sedated and he was placed on propofol and he remains on propofol at 50 mcg/kg/min. Maximal dose of Precedex yesterday could not calm him down, hence we had to transition him from pressure support/CPAP mode of mechanical ventilation to assist-control mode of mechanical ventilation and fully sedated him with propofol replacing Precedex. Today the patient is sedated, he is on assist-control rate of 16 ti sierra volume 400 FiO2 30% PEEP of 5 ABG showed a pO2 of 98 pCO2 30 pH of 7.45 chest x-ray is basically the same showing significant airspace disease in the right upper lobe and right lower lobe. Remains on daptomycin and Zosyn. His IV fluid was transitioned to D5 4 5 from D5W sodium today is 141. His urine output is about 40 to 50 cc/h, renal profile is improving with steady trending of creatinine down. Patient continues to have leakage around the jejunostomy tube. Patient is being followed by surgery no specific recommendation made except to continue the same and except the leak as it isLabs today showed WBC count of 11.5 hemoglobin 8.2 basic metabolic profile is normal BUN is 60 creatinine down to 1.81 Patient seen today on 12/26/2023, remains in the ICU intubated mechanically ventilated sedated patient is on assist-control rate of 16 tidal volume 400 FiO2 30% PEEP of 5 ABG showed a pO2 of 82 pCO2 34 pH of 7.43. Patient is now on TPN at 30 cc/h propofol at 50 mcg/kg/min hemoglobin is down to 6.8 today and he is receiving a unit of packed RBCs. His IV fluids at 50 cc/h in the form of 0.9 normal saline. He was last night on a small dose of norepinephrine at 0.01 mcg/kg/min and is presently on hold. Antibiotics arce patient is on Zosyn daptomycin and Eraxis. Chest x-ray continues to show significant airspace disease involving the right upper lobe and right lower lobe not much of a change noted on the chest x-ray. Clinically the patient is about the same, today I plan to discontinue propofol, arrange for the patient to go on Precedex, and assess mental status off sedation. If tolerated, may transition the patient again to pressure support and CPAP type of mechanical ventilation, but he is not ready to go to that transition yet. WBC count is 11.6 hemoglobin 6.8. ABG today showed a pO2 of 82 pCO2 34 pH of 7.43 potassium is 3.3 being addressed accordingly BUN is 53 creatinine 1.84 Patient was evaluated today on 12/27/2023, remains in the ICU intubated and mechanically ventilated. Patient is presently on IMV mode of mechanical ventilation with pressure support rate of 16 pressure support 14 tidal volume 400 FiO2 30% and PEEP of 5 ABG showed a pO2 of 99 pCO2 31 pH of 7.44. Intermittently the patient has been experiencing episodes of extreme agitation and restlessness he is on Precedex at 0.5 mcg/kg/h. Patient is on IV fluid 0.9 normal saline at 50 cc/h and is also receiving TPN. Remains on Eraxis daptomycin and Zosyn patient is intermittently requiring Dilaudid, Ativan does not seem to help his agitation and restlessness. But Dilaudid does hence I would recommend 0.5 mg every 2-3 hours as needed for agitation. Patient has good urine output roughly about 100 cc/h. Continues to have leakage around the jejunostomy tube, and patient is undergoing the J-tube exchange today. Family is at bedside, seems to be quite anxious about his overall condition, and I explained to the that we are doing the best we can considering his critical illness situation and critical illness polyneuropathy. Patient is profoundly weak, and weaning the patient from mechanical ventilation is almost impossible. At least not at this point yet WBC count is 10.9 hemoglobin is 8.1 basic metabolic profile is normal BUN is 46 creatinine 1.90 patient has been off hemodialysis since the . Chest x-ray continues to show stable findings with right upper lobe opacity and right lower lobe opacity and possibly a small right-sided pleural effusion Was evaluated today on 12/28/2023, patient remains in the ICU, intubated and mechanically ventilated, on IMV mode of mechanical ventilation rate set at 16 he is on pressure support of 14 tidal volume 400 FiO2 30% and PEEP of 5 ABG showed a pO2 of 113 pCO2 31 pH of 7.43. No major events overnight, patient is still requiring Precedex at 0.7 mcg/kg/h. He is on TPN as we could not use his jejunostomy tube, no jejunostomy tube was done yesterday, IV fluid is 0.9 at 50 cc/h remains on TPN at 65 cc/h patient is on Eraxis daptomycin and Zosyn. Chest x-ray is showing improvement in his right upper lobe airspace disease/lung abscess and there is a slight improvement in his right lower lobe opacity. Kathryn ent is arousable but does not follow any instructions, patient gets agitated easily if aroused and he started gagging on the tracheostomy tube. Family is at bedside, again updated on his condition. WBC count is 7.6 hemoglobin 7.9. Basic metabolic profile is normal BUN is 45 creatinine down to 1.51 patient has not had any dialysis since 12/17, his renal functioning and urine output continues to improve, hence I am strongly recommending removing his dialysis catheter Patient was seen on 12/29/2023, remains intubated and mechanically ventilated, in the ICU, on IMV of 16 tidal volume 400 FiO2 30% PEEP of 5 ABG showed a pO2 of 105 pCO2 31 pH of 7.45. Remains on Precedex at 0.8 mcg/kg/h, remains on TPN at 65 cc/h IV fluid 0.45 at 50 mL/h remains on multiple antibiotics and antifungal including Eraxis daptomycin and Zosyn. His hemodialysis catheter has been removed, urine output has been excellent renal functioning is improving chest x- ray is showing improvement in his right upper lobe airspace disease/pulmonary abscess. Right lower lobe seems about the same with chronic opacity and possibly some small right-sided pleural effusion. Family is at bedside, patient is arousable but does not follow any instructions. Gets extremely restless and agitated easily hence patient is receiving Dilaudid which seems to be working much better for this patient than benzodiazepines. And we are trying to avoid Ativan, trying to avoid any propofol as much as possible. I believe his drainage from the jejunostomy tube is becoming less and less, hence we could start considering early next week arrangement to possibly transfer the patient to a select care specialty. In the meantime I am recommending that we go down on the IMV rate by 2 every 2 hours the goal is pressure support of 14 and IMV of 8. Progress note dated December 30, 2023. This is a 73-year-old male who is now been in the hospital for 48 days. The patient was admitted back on November 11. Currently, he is seen in the intensive care unit, room 253. The patient is currently on synchronized IMV mode, rate of 8, pressure support of 14, PEEP of 5, FiO2 30%, and a backup tidal volume of 400 cc. Blood gases showed a pO2 of 87, pCO2 of 31, and a pH of 7.42. The patient will be switched back to the volume assist-control mode, as he is not ready to be weaned. His minute volume is nearly 18 L/min. He is breathing at a rate of about 40 times per minute. He currently is on Precedex 0.8 mics per kilogram per minute, TPN at 90 cc an hour, and half-normal saline at 50 cc an hour. The patient continues on Zerbaxa, Eraxis, and daptomycin. White count 11.5, hemoglobin 8.1, hematocrit 25, platelet count of 78,000. Sodium 142, potassium 4.2, chlorides 119, CO2 20, BUN 42, and creatinine 1.22. Glucose is 178. Albumin is 1.9. Sputum from December 24 shows evidence of Citrobacter freundii and Pseudomonas aeruginosa. Blood cultures from the same day were positive for Staphylococcus. Chest x-ray shows extensive pleural-parenchymal opacities, in both lungs, and the chest x-ray is largely unchanged from the pre vious days x-ray. Progress note dated December 31, 2023. 73-year-old male now here in the hospital for 49 days. The patient was admitted way back on November 11. He is seen today in room 253. Family members are at the bedside. The patient currently is on volume assist-control, rate 32, tidal volume 400, FiO2 30%, PEEP of 5. Blood gases show pO2 of 94, pCO2 of 35, pH is 7.40. Unfortunately, the patient is not synchronous with the ventilator, and so we switched to pressure regulated volume control or VC plus. We set an inspiratory time at 0.8 seconds, and the targeted tidal volume of 450 cc. The patient is on TPN at 70 cc an hour, saline at KVO, propofol at 40 mcg/kg/min. The patient continues on Eraxis, daptomycin, and Zerbaxa. Current labs include a white count 12.8, hemoglobin 7.3, hematocrit 22.4, and a platelet count of 67,000. Sodium 140, potassium 3.6, chlorides 119, CO2 20, BUN 43, creatinine 1.15. Glucose is 223. Calcium is 6.8. Today's chest x-ray is largely unc hanged. Progress note dated January 01, 2024. 73-year-old male seen again in room 253. The patient has not been in the hospital for 50 days. The patient continues on the mechanical ventilator. He is on pressure regulated volume control, or VC plus. His target tidal volume is 450 cc and his inspiratory time RTI is 0.8 seconds. His respiratory rate is 32. PEEP is 5, and FiO2 is 30%. Blood gases show pO2 of 98, pCO2 of 34, and a pH of 7.40. The patient continues on propofol at 15 mcg/kg/min, and TPN at 90 cc an hour. The patient also continues on Zerbaxa, daptomycin, and Eraxis. White count is 12.1, hemoglobin 7, hematocrit 22.0, and platelet count 69,000. Sodium 141, potassium 4.3, chlorides 120, CO2 19, BUN 44, creatinine 1.11. Calcium is 7. Chest x-ray shows a right-sided pleural effusion, with adjacent atelectasis and/or consolidation. There is a small left-sided pleural effusion as well. Progress note dated January 02, 2024. 73-year-old male seen again in room 253. The patient has not been here in the hospital for 51 days. He remains on mechanical ventilator. He is on the pressure regulated volume control modality no also noted his VC plus. The patient is on a rate of 32 breaths/min, PEEP of 5, FiO2 30%, inspiratory time her TI was 0.8, and a target tidal volume of 450 cc. Blood gases show pO2 of 90, pCO2 34, pH is 7.40. The patient is receiving TPN at 90 cc an hour, propofol at 20 mcg/kg/min, and has received a total of 6 units of packed red blood cells. The patient is going to get Dilaudid and Ativan scheduled. Dilaudid will be 1 mg every 2 hours, and Ativan 1 mg every 6 hours. The patient continues on daptomycin, Eraxis, and Zerbaxa. White count is 10, hemoglobin 6.5, hematocrit 20.3, platelet count 83,000. Sodium 140, potassium 4.6, ch lorides 119, CO2 20, BUN 45, creatinine 1.08. Most recent cultures are from December 24, showing evidence of Citrobacter from the and Pseudomonas aeruginosa, in the sputum. Blood cultures, on the same day, show evidence of Staphylococcus species. Chest x-ray shows extensive pleural-parenchymal opacities in the right hemithorax, and patchy opacity at the left lower lobe area. Progress note dated January 03, 2024. 73-year-old male seen in room 253. The patient has now been in the hospital for 52 days. He remains on mechanical ventilator, with the modality being the pressure regulated volume control modality, also known as VC plus. The patient's inspiratory time is 0.8 seconds, and his targeted tidal volume is 450 cc. Rate is 32, FiO2 30%, PEEP of 5. Blood gases show pO2 of 95, pCO2 of 34, pH of 7.41. The patient is on TPN at 90 cc an hour, propofol at 15 mcg/kg/min, saline at 10 cc an hour. Daptomycin and Eraxis have been discontinued. Zerbaxa is on day #6 of . We are going to DC the metoprolol and midodrine from the [facility]. Apparently, the patient has been denied twice, to the [facility] acute care facility by his insurance. White count is 1.5, hemoglobin 8, macro 24.4, platelet count 78,000. Sodium 139, potassium 5.3, chlorides 119, CO2 20, BUN 44, creatinine 1.05. Glucose 192. Calcium 7.1. Magnesium 1.8. The chest x- ray today, is largely unchanged. Progress note dated January 04, 2024. 73-year-old male seen in room 253. The patient has now been in the hospital for 53 days. He remains on the mechanical ventilator. He is on pressure regulated volume control or VC plus, but the inspiratory time is 0.8 seconds, and a targeted tidal volume of 450 cc. His rate is 32, FiO2 is 30%, PEEP of 5. Blood gases show pO2 of 81, pCO2 of 35, and a pH of 7.44. He is on propofol at 10 mcg/kg/min, TPN at 90 cc an hour, and saline at 10 cc an hour. His only anti biotic currently is Zerbaxa. White count 13.4, hemoglobin 8.1, hematocrit 25, platelet count 95,000. Sodium 141, potassium 5.2, chlorides 114, CO2 23, BUN 47, creatinine 1.10. Glucose is 110. Calcium 7.4. Albumin is 1.8. Chest x- ray shows a largely unchanged evaluation. Progress note dated January 05, 2024. 73-year-old male seen in room 253. The patient has now been in the hospital for 54 days. He remains on mechanical ventilator. He is on pressure regulated volume control, with inspiratory time of 0.8 seconds, and a targeted tidal volume of 450 cc. Rate is set at 32, FiO2 30%, PEEP of 5. Blood gases show pO2 of 98, pCO2 35, and a pH of 7.42. The patient's propofol has been weaned off. He is just getting scheduled Dilaudid and Ativan. He is getting TPN at 90 cc an hour, saline at 10 cc an hour. His only antibiotic is Zerbaxa, as Eraxis, and daptomycin has been discontinued. The patient will get a spontaneous breathing trial today with pressure support of 10 and CPAP of 5. White count 11.3, hemoglobin 7.6, hematocrit 23.4, platelet count 100,000. Sodium 138, potassium 3.9, chlorides 116, CO2 21, BUN 46, Creatinine 1.07. Albumin Is 1.9. Chest x- ray is largely unchanged. Patient was reevaluated today on 01/17/2024, patient was supposed to be sent home today with hospice to follow at home, however the family today/ change her mind, and asking to consider palliative care, she is also asking for a second opinion but she is not specific about the second opinion, explained to her that the only 3 kil[employer] mechanic that we have in this institution is myself Dr. Livia espinoza and Dr. Nieves and we have all given the same opinion, and if she could find a place where they could accept him to transfer to another institution, I will be more than happy to do so patient was declined transfer to [facility] he was also declined transfer to the [facility]. Today he is on pressure control mode of mechanical ventilation basically unchanged compared to yesterday. He remains on Precedex 1.4 mcg/kg/h remains on TPN, still could not use his J-tube. Patient is intermittently on Dilaudid, antibiotics arce he is receiving Cipro and fluconazole. Patient had multiple attempts to wean, could not tolerate more than few hours of pressure support of 14 and CPAP this has been done quite frequently and sometimes he does not even tolerate the switch from pressure control mode of mechanical ventilation to pressure support of mechanical ventilation. Patient is definitely a failure to wean and multiple attempts have failed. Patient has critical illness polyneuropathy he continues to have some nonspecific airspace disease bilaterally continues to have a pigtail catheter in place, and continues to have air leak,WBC count today is 16.3 hemoglobin 8.1 electrolytes showed low potassium of 3.3 being addressed accordingly renal profile is normal. Chest x- ray today is actually showing improvement compared to the previous x-rays he had all along. With significant improvement in the right upper lobe and the right lower lobe, continues to have some infiltrate in the left lower lobe Castriz seems to be intact Patient was seen01/18/24, remains in the ICU, remains intubated and mechanically ventilated, he is on pressure control mode of mechanical ventilation with pressure control of 15, DI of 0.8, rate 20, FiO2 30% and PEEP of 5 no ABG was done this morning did not feel to be necessary. Patient had a WBC of 15.8 hemoglobin 7.4. Basic metabolic profile is normal renal profile is normal continues to have bilateral airspace disease on chest x-ray specially the right upper lobe, and left lower lobe. Continues to have a pigtail catheter in place and continues to drain and he continues to have a air leak. Patient remains on ciprofloxacin, he is also on fluconazole, tobramycin was added by infectious disease on the case. Patient is getting now physical therapy and Occupational Therapy, he remains on Precedex at 1.3 mcg/kg/h he is also on TPN at 90 cc/h chest x-ray was noted and again he has bilateral airspace disease. Patient remains frail, chronically ill, and he does have clearly critical illness polyneuropathy. No plans by surgery to do much about his J-tube, continues to have a wound VAC in place. Today the patient will be given another trial of pressure support and CPAP, and will document how long he could do on pressure s upport mode of mechanical ventilation Patient was seen today on 01/19/2024, patient remains in the ICU, intubated and mechanically ventilated. Patient tolerated about 2 hours of pressure support and CPAP weaning yesterday, then he became restless, agitated, and went on to develop this ongoing cough. Hence had to be placed back on mechanical ventilation and remains on pressure control mode of mechanical ventilation with PI 15 ti 0.8 per 820 FiO2 30% PEEP of 5. Patient continues to have episodes of agitation and he has been on Precedex at 1.1 mcg/kg/h. Remains on TPN at 90 cc/h remains on IV fluid of 0.9 at 50 cc/h sodium is 129, that we will correct with 0.9 normal saline. Patient remains on tobramycin and ciprofloxacin and fluconazole. Continues to have right-sided pigtail catheter in place, and continues to have ongoing air leak. Chest x-ray continues to show airspace disease in both lungs but more concerning is the right upper lobe abnormality. Multiple attempts have been made in the past to wean the patient, and has not been able to tolerate more than few hours of pressure support and CPAP, will try another weaning trial today with pressure support of 14 and CPAP. Unfortunately I cannot place the patient on Seroquel and hoping to get rid of Precedex, mostly because we cannot use his GI tract. Fanny arce the patient remains on TPN. Progress note dated January 20, 2024. 73-year-old male who is now been in the hospital for 69 days. I last saw the patient on January 05, 2024. Currently, the patient remains in the intensive care unit, room 253. He spent about 20 hours on pressor support of 14 and CPAP of 5, yesterday, and is currently back on pressor support and CPAP. When not on pressor support and CPAP, the patient is on pressure assist control, with an inspiratory pressure of 15 cm of water, and inspiratory time is 0.8 seconds. Respiratory rate 20, PEEP 5, and FiO2 30%. The patient remains on TPN at 90 cc an hour, and saline at 50 cc an hour. He continues on Precedex at 1 mcg/kg/h. The patient is also on ciprofloxacin, tobramycin, and Diflucan. Current labs are good a white count 16.3, hemoglobin 8.3, hematocrit 25.3, and a normal plate let count. Sodium 130, potassium 3.7, chlorides 103, CO2 22, BUN 30, creatinine 0.65. Albumin is 2.2. Glucose is 195. Most recent sputum shows evidence of Pseudomonas aeruginosa. Chest x-ray is showing chronic changes, with no appreciable change. Progress note dated January 21, 2024. 73-year-old male who has now been in the hospital for 70 days. The patient is seen again today in room 253. Since yesterday, the patient has been on pressor support of 14, CPAP of 5. FiO2 is 30%. He did not need to go back on pressure assist control ventilation. He is currently on Precedex and 0.9 mcg/kg/h, TPN at 90 cc an hour, saline at KVO. The patient had a pretty uneventful night. He does have some episodes of coughing. We did add some aerosolized lidocaine, which seemed to help initially, but may be more recently not so much. White count 16.6, hemoglobin 7.8, macro 24.4, and platelet count normal. Sodium 129, potassium 3.7, chlorides 102, CO2 21, BUN 27, creatinine 0.59. Glucose 168. Magnesium 1.4. Most recent sputum culture showed evidence of Pseudomonas aeruginosa. No chest x-ray today. The patient is currently on tobramycin, ciprofloxacin, and fluconazole, as per infectious diseases. Objective - Vital Signs Vital signs: Vital Signs Temp 98.9 F 01/21/24 06:00 Pulse 75 01/21/24 10:57 Resp 26 H 01/21/24 07:00 BP 123/99 01/21/24 07:00 Pulse Ox 98 11/19/24 07:00 FiO2 30 01/21/24 10:57 Intake & Output 01/20/24 01/21/24 01/21/24 18:59 06:59 18:59 Intake Total 2237.993 1384.24 Output Total 1700 1540 80 Balance 537.993 -155.76 -80 Weight 100.6 kg 105.3 kg Intake: IV 1980 1100 0.9 Normal Saline @ KVO 110 110 Fluconazole in NaCl,Iso- 200 Osm 200 mg In Saline 1 100ml.bag @ 100 mls/hr IVPB DAILY [facility] Rx#: [id number] Potassium Chloride 10 meq 200 In Water For Injection 1 100ml.bag @ 100 mls/hr IVPB Q1H [facility] Rx#: [id number] Sodium Chloride 0.9% 1, 290 0 000 ml @ 50 mls/hr IV . Q20H [facility] Rx#:[id number] TPN 1080 990 Tobramycin Sulfate 600 mg 100 In Sodium Chloride 0.9% 100 ml @ 115 mls/hr IVPB Q48H [facility] Rx#:[id number] Intake, IV Titration 257.993 284.24 Amount Dexmedetomidine/0.9% NaCl 257.993 284.24 (Pmx) 400 mcg In Empty Bag 1 bag @ 0.2 MCG/KG/HR 5.2 mls/hr IV .[id number] [facility] Rx#:[id number] Output: Drainage 220 170 80 Medial Abdomen 0 0 0 Right Abdomen 100 140 50 Right Upper Posterior 120 30 30 Chest Urine 1480 1370 Other: Voiding Method Indwelling Catheter Indwelling Catheter ABP, PAP, CO, CI - Last Documented Arterial Blood Pressure 173/76 - Exam No acute distress, somewhat lethargic, in no acute distress, with a midline tracheostomy tube. HEENT examination is grossly unremarkable. Neck supple. Full range of motion. No adenopathy thyromegaly or neck vein di stention. Midline tracheostomy tube noted. Cardiovascular examination reveals regular rhythm rate. S1-S2 normal. No S3 or S4. No discernible murmur noted. Lungs reveal mild scattered rhonchi. No wheezes or crackles. Breath sounds equal. Abdomen soft, without bowel sounds. Midline incision, there is for the most part intact, although there is some purulence noted, with some minimal de hiscence Extremities are intact. No cyanosis clubbing or edema. Skin is without rash or lesion. Neurologic examination is somewhat improved. - Labs CBC & Chem 7: 01/21/24 06:16 01/21/24 06:16 Labs: Abnormal Lab Results - Last 24 Hours (Table) 01/20/24 01/20/24 01/21/24 Range/Units 18:06 23:33 05:08 WBC (3.8-10.6) k/uL RBC (4.30-5.90) m/uL Hgb (13.0-17.5) gm/dL Hct (39.0-53.0) % RDW (11.5-15.5) % Neutrophils # (1.3-7.7) k/uL Sodium (137-145) mmol/L Carbon Dioxide (22-30) mmol/L BUN (9-20) mg/dL Creatinine (0.66-1.25) mg/dL Glucose (74-99) mg/dL POC Glucose (mg/dL) 165 H 193 H 156 H (70-110) mg/dL Calcium (8.4-10.2) mg/dL Magnesium (1.6-2.3) mg/dL 01/21/24 01/21/24 Range/Units 06:16 06:16 WBC 16.6 H (3.8-10.6) k/uL RBC 2.63 L (4.30-5.90) m/uL Hgb 7.8 L (13.0-17.5) gm/dL Hct 24.4 L (39.0-53.0) % RDW 16.7 H (11.5-15.5) % Neutrophils # 12.4 H (1.3-7.7) k/uL Sodium 129 L (137-145) mmol/L Carbon Dioxide 21 L (22-30) mmol/L BUN 27 H (9-20) mg/dL Creatinine 0.59 L (0.66-1.25) mg/dL Glucose 168 H (74-99) mg/dL POC Glucose (mg/dL) (70-110) mg/dL Calcium 7.3 L (8.4-10.2) mg/dL Magnesium 1.4 L (1.6-2.3) mg/dL Assessment and Plan Assessment: Acute hypoxemic respiratory failure with failure to wean from mechanical ventilation, S/P tracheostomy/PEG tube on December 10, 2023. Respiratory failure, requiring reintubation, on November 25, 2023. Acute hypoxic respiratory failure requiring intubation/mechanical ventilation secondary to aspiration during EGD on 11/12/2023. Patient was extubated on 11/14/2023. S/P J-tube placement 11/16/2023, which continues to leak. Septic shock. Acute kidney injury secondary to sepsis, and ATN. Acute bowel obstruction, diagnosed via CT scan, November 24, 2023. Acute aspiration pneumonia. Acute aspiration during upper endoscopy most likely secondary to gastric outlet obstruction secondary to non-Hodgkin's lymphoma. Chronic abdominal pain, secondary to B-cell lymphoma. Unexplained weight loss most likely secondary non-Hodgkin's lymphoma involving the stomach. Paroxysmal atrial fibrillation. Chronic anemia. Plan: Plan dated November 21, 2023. The patient is seen today in room 517. The patient is on 3 L of oxygen. He continues on Zosyn. Continues on tube feeds. He had a CT scan of the abdomen and pelvis. His respiratory status is improved. We will continue to follow. Prognosis is guarded. Labs, x-rays, medications are reviewed. The patient is a pparently scheduled for an outpatient PET scan. Plan dated November 22, 2023. The patient appears very stable. His is in the room with him. Labs, x- rays, and medications are reviewed. The patient continues on Zosyn. Resting room air saturation was 89%. Chest CT, revealed bilateral patchy and basilar infiltrates. We will continue to follow make recommendations along the way. Prognosis is guarded. The patient was diagnosed with a gastric outlet obstruction, secondary to non-Hodgkin's lymphoma. Plan dated November 23, 2023. The patient is seen today in room 517. He is resting comfortably. He continues on saline at 10 cc an hour. He is getting tube feedings with Pivot at 20 cc an hour. He has been weaned down to 2 L of oxygen. He continues on Zosyn. Labs, x-rays, and all medications are reviewed. Prognosis is guarded. We will continue to follow. Plan dated November 24, 2023. The patient will be admitted to the intensive care unit. I believe he deserves to be an ICU patient. I did speak to the surgeon. Labs, x-rays, and medications are reviewed. No additional recommendations are made. Prognosis is guarded. The patient has now been in the hospital for 12 days. We will continue to follow. He continues on Zosyn. Plan dated December 14, 2023. The patient is seen today in room 253. Currently, the patient is on the ventilator. He will have another PSV/CPAP trial. Apparently yesterday, he went for about 2-1/2 hours before he required to be placed back on the ventilator. The patient is getting saline at 10 cc an hour, and Nepro tube feedings at 50 cc an hour, which is goal. The patient had a fever, and will be recultured. In addition, the midline incision in the abdomen, shows some evidence of purulence, and will have a surgeon, take a look at that. Currently, the patient is not on any antibiotics. We will recheck a procalcitonin level. One of the family members was in the room, and was updated. Plan dated December 15, 2023. The patient actually spent about 6 hours on pressor support yesterday. The patient will have another spontaneous breathing trial today. The patient remains off of all sedation. He is getting Ativan and Dilaudid as needed. He is receiving tube feedings at goal. Labs, x-rays, and medications are reviewed. The repeat procalcitonin level was elevated at 1.92. We added Zosyn empirically. He had pancultures done yesterday. Labs, x-rays, and all medications are reviewed. Prognosis is guarded. An update was given to the daughter and to the right. Dictation was produced using [employer] dictation software. Please excuse any grammatical, word or spelling errors. Plan dated December 30, 2023. The patient is seen today in room 253. The patient has now been in the hospital for 48 days. He was admitted way back on November 11. The patient currently is not ready to be weaned, given his high respiratory rate, and high minute volume. The patient is converted back to volume assist-control. In addition, the patient continues on Zerbaxa, Eraxis, and daptomycin, because of recent infections, including Pseudomonas, and Citrobacter, as well as Staphylococcus. Labs, x-rays, and medications are reviewed. The patient will continue on a small dose of propofol, Dilaudid as needed, and Ativan. Dexmedetomidine which is currently running was to be discontinued. Additional recommendations and s uggestions are forthcoming. Prognosis is poor in my opinion. The patient remains a full code. The remains hopeful. Dictation was produced using [employer] software. Please excuse any g rammatical, word or spelling errors. Plan dated December 31, 2023. The patient is seen today in room 253. Family members are at the bedside. After observing the patient on the ventilator, for period of time, it was clear to me, the patient was not synchronous with the ventilator. For that reason, we switched from volume assist-control, to pressure regulated volume control or VC plus. The patient had a inspiratory time of 0.8 seconds, and a targeted tidal volume of 450 cc. Everything else stayed the same. After switching, the patient's respiratory rate came down, as did his minute volume. He appeared much more comfortable. Labs, x-rays, medications are reviewed. The patient continues on Zerbaxa, Eraxis, and daptomycin. We will continue to follow. Prognosis is guarded. No additional recommendations are made. The patient is on propofol at 40 mcg/kg/min. I have asked the nurses to use both Ativan every 6 hours, and Dilaudid every 2 hours as needed, to see if we can get him on a small dose of propofol so that we can send the patient to long-term acute care facility. Prognosis is guarded. Dictation was produced using [employer] software. Please excuse any grammatical, word or spelling errors. Plan dated January 01, 2024. The patient is seen today in room 253. I had a long conversation with the patient's family yesterday. It was encouraged, by the primary service, Dr. Rowe. Dr. Rowe also talked to the family about CODE STATUS, and the possibility of a palliative care consult or hospice consultation. The patient is chronically and critically ill, but stable. The patient remains on the mechanical ventilator, and is not able to be weaned at this time. Previous attempts at weaning, has caused significant increases in respiratory rate, significant increases in minute volume, and disruptions of his vital signs. The patient continues on Zerbaxa, daptomycin, and Eraxis. The patient is on a relatively smaller dose of propofol at 15 mcg/kg/min. I have encouraged the nurse to wean that down even further. In addition to propofol, the patient is receiving Ativan, and Dilaudid as needed. Labs, x-rays, medications are reviewed. The patient could be considered for possible discharge to long-term acute care facility or select specialty. Plan dated January 02, 2024. I have ongoing discussions with the family. The patient is doing very poorly in my opinion, and is currently not weanable. The patient, could be transferred to a long-term acute care facility or specialized nursing facility. We are attempting to get his propofol dose down to a reasonable level. I did asked the nurses to make sure that the patient got his Dilaudid, and Ativan, as scheduled medications. The patient blood gases are excellent. pO2 is 90, pCO2 is 34, pH is 7.40. The patient remains on pressure regulated volume control modality of ventilation. Labs, x-rays, and all medications are reviewed. The patient is overall prognosis remains poor. The patient remains a full code patient. I did have a long talk with the patient's just a few days ago. Plan dated January 03, 2024. The patient is seen again in room 253. The , and one of the family members at the bedside. The patient continues on mechanical ventilation, and at this time, cannot be weaned. The patient is getting TPN at 90 cc an hour, propofol at 15 mcg/kg/min. The patient is receiving saline at 10 cc an hour. We were in contact with the infectious disease doctor. Daptomycin and Eraxis were discontinued. The patient is on day #6 of 10, on Zerbaxa. Metoprolol and midodrine were discontinued from the [facility]. The patient's insurance denied transfer to a long-term acute care facility twice now. Labs, x-rays, medications are reviewed. The patient is overall prognosis is very poor. Today's peak airway pressure is 19 cm of water. The Plateau pressure is 11 cm of water. We will continue to follow the patient, make recommendations along the way. I have had ongoing discussions with the patient's . Plan dated January 04, 2024. The patient is seen in room 253. The and daughter are in the room with the patient. She apparently did call [facility] yesterday, to see if they would except her . They apparently said that they had no beds, and did not currently except him. The patient continues on the mechanical ventilator. The patient's antibiotics have been pared down, to only Zerbaxa for another 3 to 4 days. The patient is down to propofol at 10 mcg/kg/min, TPN at 90 cc an hour, and saline at 10 cc an hour. The patient remains on VC plus modality of ventilation. Blood gases show pO2 of 81, pCO2 of 35, pH is 7.44. Labs, x-rays, medications are reviewed. Prognosis is guarded. We will continue to follow. Plan dated January 05, 2024. The patient will be given a spontaneous breathing trial, with pressure support of 10, CPAP of 5. I have asked the respiratory therapist to watch the patient carefully. Should he demonstrate any worsening respiratory status, high respiratory rate, low tidal volumes, high heart rate, diaphoresis, changes in blood pressure, or anything that would suggest fatigue, she should switch her back to the former modality. Labs, x-rays, medications are reviewed. I did spend some time talking to the patient's . I gave her an update. Apparently the patient's did call [facility], to see if he could be transferred. No beds were available. Also, he has been denied transfer to long-term acute care, by his insurance company, twice. Plan dated January 20, 2024. The patient was on pressor support and CPAP, for about 20 hours yesterday. The patient was placed back on pressor support and CPAP, this morning. When not on pressor support and CPAP, the patient is maintained on pressure assist control, with inspiratory pressure of 15 cm of water, inspiratory time 0.8 seconds, FiO2 30%, rate 20, PEEP of 5. Blood gases were not done. TPN is at 90 cc an hour, saline's at 50 cc an hour and Precedex is 1 mcg/kg/h. The patient remains on ciprofloxacin, tobramycin, Diflucan. Clinically, the patient appears to be tolerating weaning trials reasonably well. We are hoping to have the patient transferred to long-term acute care tomorrow. Additional recommendations and suggestions are forthcoming. Prognosis is guarded. Labs, x-rays, and all medications are reviewed. Dictation was produced using [employer] software. Please excuse any grammatical, word or spelling errors. Plan dated January 21, 2024. The patient is seen today in room 253. Family members are at the bedside as they have been all along during this hospitalization. The patient continues on pressure support of 14, and CPAP of 5, and an FiO2 of 30%. He has been on those settings, since yesterday. Clinically, the patient appears reasonably stable. The patient is currently on Precedex 0.9 mcg/kg/h, and TPN at 90 cc an hour. Labs, x-rays, and all medications are reviewed. We are hoping to be able to get the patient discharged to long-term acute care facility. We will continue to follow make recommendations. In terms of antibiotics, the patient is on ciprofloxacin, tobramycin, and Diflucan. Prognosis is guarded. Time with Patient: Greater than 30
[2024-01-21 12:03] LABS: Glucose,Whole Blood 198 mg/dL (70-110)
--- NOTE | 2024-01-21 13:21 | P.PN ---
Subjective Progress Note Date: 01/20/24 Principal diagnosis: Reason for follow-up is pneumonia and bacteremia Patient is 73-year-old with male initial presentation to the hospital on 11/11/2021 for after the patient did have aspiration while undergoing elective endoscopy, diagnosed with a non-Hodgkin of, subsequently did have explained laparotomy for perforated small bowel abdominal washout and feeding jejunostomy tube patient did require dialysis catheter placement for dialysis during this hospital stay and tracheostomy for respiratory failure, infectious was consulted for fever. On today's evaluation that is 01/20/2024,the patient did have a low-grade fever 100.1 F last evening however patient has been afebrile since then, the patient is hemodynamically stable not requiring any pressor support, the patient remains to be intubated through the trach FiO2 is currently stable no diarrhea or any other changes reported by nursing staff. Patient white count 16.3, creatinine 0.65 Objective - Vital Signs Vital signs: Vital Signs Temp 98.8 F 01/20/24 08:00 Pulse 67 01/20/24 10:00 Resp 22 01/20/24 10:00 BP 117/76 01/20/24 10:00 Pulse Ox 100 01/20/24 10:00 FiO2 30 01/20/24 11:25 Intake & Output 01/19/24 01/20/24 01/20/24 18:59 06:59 18:59 Intake Total 2123.554 2358.62 575.680 Output Total 1435 1495 510 Balance 688.554 863.62 65.680 Weight 100.6 kg Intake: IV 1460 2080 480 0.9 Normal Saline @ KVO 20 20 Ciprofloxacin/Dextrose 400 Pmx 400 mg In Dextrose/ Water 1 200ml.bag @ 200 mls/hr IVPB Q8H [facility] Rx#: [id number] Fluconazole in NaCl,Iso- 100 Osm 200 mg In Saline 1 100ml.bag @ 100 mls/hr IVPB DAILY [facility] Rx#: [id number] Sodium Chloride 0.9% 1, 450 600 90 000 ml @ 50 mls/hr IV . Q20H [facility] Rx#:[id number] TPN 990 1080 270 Intake, IV Titration 663.554 278.62 95.680 Amount Dexmedetomidine/0.9% NaCl 363.554 278.62 95.680 (Pmx) 400 mcg In Empty Bag 1 bag @ 0.2 MCG/KG/HR 5.2 mls/hr IV .[id number] [facility] Rx#:[id number] Fluconazole in NaCl,Iso- 100 Osm 200 mg In Saline 1 100ml.bag @ 100 mls/hr IVPB DAILY [facility] Rx#: [id number] Magnesium Sulfate-D5w Pmx 100 1 gm In Dextrose/Water 1 100ml.bag @ 100 mls/hr IVPB Q1H [facility] Rx#: [id number] Potassium Chloride 20 meq 100 In Water For Injection 1 100ml.bag @ 50 mls/hr IVPB [facility]CE [facility] Rx#: [id number] Output: Chest Tube Drainage 60 50 Chest Tube Right 60 50 Drainage 0 0 60 Medial Abdomen 0 0 0 Right Upper Posterior 60 Chest Urine 1375 1445 450 Other: Voiding Method Indwelling Catheter Indwelling Catheter ABP, PAP, CO, CI - Last Documented Arterial Blood Pressure 173/76 - Exam Elderly male lying in bed intubated through the trach in no distress No tachypnea or accessory muscle respiration Unlabored breathing - Labs CBC & Chem 7: 01/21/24 06:16 01/21/24 06:16 Labs: Abnormal Lab Results - Last 24 Hours (Table) 01/19/24 01/20/24 01/20/24 Range/Units 17:36 00:12 05:56 WBC (3.8-10.6) k/uL RBC (4.30-5.90) m/uL Hgb (13.0-17.5) gm/dL Hct (39.0-53.0) % RDW (11.5-15.5) % Neutrophils # (1.3-7.7) k/uL Sodium 130 L (137-145) mmol/L BUN 30 H (9-20) mg/dL Creatinine 0.65 L (0.66-1.25) mg/dL Glucose 152 H (74-99) mg/dL POC Glucose (mg/dL) 144 H 180 H (70-110) mg/dL Calcium 7.2 L (8.4-10.2) mg/dL Alkaline Phosphatase 194 H (38-126) U/L Albumin 2.2 L (3.5-5.0) g/dL 01/20/24 01/20/24 Range/Units 05:56 06:41 WBC 16.3 H (3.8-10.6) k/uL RBC 2.74 L (4.30-5.90) m/uL Hgb 8.3 L (13.0-17.5) gm/dL Hct 25.3 L (39.0-53.0) % RDW 16.8 H (11.5-15.5) % Neutrophils # 11.4 H (1.3-7.7) k/uL Sodium (137-145) mmol/L BUN (9-20) mg/dL Creatinine (0.66-1.25) mg/dL Glucose (74-99) mg/dL POC Glucose (mg/dL) 195 H (70-110) mg/dL Calcium (8.4-10.2) mg/dL Alkaline Phosphatase (38-126) U/L Albumin (3.5-5.0) g/dL Assessment and Plan (1) Sepsis Current Visit: Yes Status: Acute Code(s): A41.9 - SEPSIS, UNSPECIFIED ORGANISM SNOMED Code(s): 62753911 (2) Pneumonia Current Visit: Yes Status: Acute Code(s): J18.9 - PNEUMONIA, UNSPECIFIED ORGANISM SNOMED Code(s): 272360876 (3) Bacteremia Current Visit: Yes Status: Acute Code(s): R78.81 - BACTEREMIA SNOMED Code(s): 9330952 Plan: 1patient with complicated pneumonia and lung abscess on the CT status post drainage catheter placement by interventional radiology subsequently did have purulent pleural fluid which has been cultured did have a chest tube and is growing Pseudomonas with slightly different sensitivity from the sputum Pseudomonas aeruginosa. 2-patient also have evidence of retro vesicular abscess on the CT abdominal pelvis, this has been discussed with the surgical team on the case in person however mention patient would not be able to tolerate any further surgery. 3patient CT chest also showed evidence of pulmonary abscess status post chest tube placement, pleural fluid cultures are growing Pseudomonas aeruginosa that is sensitive to Zerbaxa as well as tobramycin and Cipro and also growing Alejandra albicans 4patient to continue with tobramycin, Cipro and Diflucan while watching his kidney function closely Dictation was produced using [employer] dictation software. please excuse any grammatical, word or spelling errors. Time with Patient: Less than 30
--- NOTE | 2024-01-21 13:23 | P.PN ---
Subjective Progress Note Date: 01/21/24 Principal diagnosis: Reason for follow-up is pneumonia and bacteremia Patient is 73-year-old with male initial presentation to the hospital on 11/11/2021 for after the patient did have aspiration while undergoing elective endoscopy, diagnosed with a non-Hodgkin of, subsequently did have explained laparotomy for perforated small bowel abdominal washout and feeding jejunostomy tube patient did require dialysis catheter placement for dialysis during this hospital stay and tracheostomy for respiratory failure, infectious was consulted for fever. On today's evaluation that is 01/21/2024, the patient continues to be afebrile, the patient is on ventilator through the trach FiO2 stable at 30% patient is hemodynamically stable not requiring any pressor support no vomiting diarrhea in the change reported by the nursing staff. Patient white count is 16.6, creatinine 0.59 Objective - Vital Signs Vital signs: Vital Signs Temp 98.2 F 01/21/24 12:00 Pulse 84 01/21/24 12:00 Resp 24 01/21/24 12:00 BP 105/67 01/21/24 12:00 Pulse Ox 98 01/21/24 12:00 FiO2 30 01/21/24 12:00 Intake & Output 01/20/24 01/21/24 01/21/24 18:59 06:59 18:59 Intake Total 2237.993 1384.24 500 Output Total 1700 1540 1180 Balance 537.993 -155.76 -680 Weight 100.6 kg 105.3 kg Intake: IV 1980 1100 500 0.9 Normal Saline @ KVO 110 110 50 Fluconazole in NaCl,Iso- 200 Osm 200 mg In Saline 1 100ml.bag @ 100 mls/hr IVPB DAILY [facility] Rx#: [id number] Potassium Chloride 10 meq 200 In Water For Injection 1 100ml.bag @ 100 mls/hr IVPB Q1H [facility] Rx#: [id number] Sodium Chloride 0.9% 1, 290 0 0 000 ml @ 50 mls/hr IV . Q20H [facility] Rx#:[id number] TPN 1080 990 450 Tobramycin Sulfate 600 mg 100 In Sodium Chloride 0.9% 100 ml @ 115 mls/hr IVPB Q48H [facility] Rx#:[id number] Intake, IV Titration 257.993 284.24 Amount Dexmedetomidine/0.9% NaCl 257.993 284.24 (Pmx) 400 mcg In Empty Bag 1 bag @ 0.2 MCG/KG/HR 5.2 mls/hr IV .[id number] REPLACED BY [facility] Rx#:[id number] Output: Drainage 220 170 80 Medial Abdomen 0 0 0 Right Abdomen 100 140 50 Right Upper Posterior 120 30 30 Chest Urine 1480 1370 1100 Other: Voiding Method Indwelling Catheter Indwelling Catheter Indwelling Catheter ABP, PAP, CO, CI - Last Documented Arterial Blood Pressure 173/76 - Exam Elderly male lying in bed intubated through the trach in no distress No tachypnea or accessory muscle respiration Unlabored breathing - Labs CBC & Chem 7: 01/21/24 06:16 01/21/24 06:16 Labs: Abnormal Lab Results - Last 24 Hours (Table) 01/20/24 01/20/24 01/21/24 Range/Units 18:06 23:33 05:08 WBC (3.8-10.6) k/uL RBC (4.30-5.90) m/uL Hgb (13.0-17.5) gm/dL Hct (39.0-53.0) % RDW (11.5-15.5) % Neutrophils # (1.3-7.7) k/uL Sodium (137-145) mmol/L Carbon Dioxide (22-30) mmol/L BUN (9-20) mg/dL Creatinine (0.66-1.25) mg/dL Glucose (74-99) mg/dL POC Glucose (mg/dL) 165 H 193 H 156 H (70-110) mg/dL Calcium (8.4-10.2) mg/dL Magnesium (1.6-2.3) mg/dL 01/21/24 01/21/24 01/21/24 Range/Units 06:16 06:16 12:01 WBC 16.6 H (3.8-10.6) k/uL RBC 2.63 L (4.30-5.90) m/uL Hgb 7.8 L (13.0-17.5) gm/dL Hct 24.4 L (39.0-53.0) % RDW 16.7 H (11.5-15.5) % Neutrophils # 12.4 H (1.3-7.7) k/uL Sodium 129 L (137-145) mmol/L Carbon Dioxide 21 L (22-30) mmol/L BUN 27 H (9-20) mg/dL Creatinine 0.59 L (0.66-1.25) mg/dL Glucose 168 H (74-99) mg/dL POC Glucose (mg/dL) 198 H (70-110) mg/dL Calcium 7.3 L (8.4-10.2) mg/dL Magnesium 1.4 L (1.6-2.3) mg/dL Assessment and Plan (1) Sepsis Current Visit: Yes Status: Acute Code(s): A41.9 - SEPSIS, UNSPECIFIED ORGANISM SNOMED Code(s): 36427162 (2) Pneumonia Current Visit: Yes Status: Acute Code(s): J18.9 - PNEUMONIA, UNSPECIFIED ORGANISM SNOMED Code(s): 298110780 (3) Bacteremia Current Visit: Yes Status: Acute Code(s): R78.81 - BACTEREMIA SNOMED Code(s): 8199348 Plan: 1patient with complicated pneumonia and lung abscess on the CT status post drainage catheter placement by interventional radiology subsequently did have purulent pleural fluid which has been cultured did have a chest tube and is growing Pseudomonas with slightly different sensitivity from the sputum Pseudomonas aeruginosa. 2-patient also have evidence of retro vesicular abscess on the CT abdominal pelvis, this has been discussed with the surgical team on the case in person however mention patient would not be able to tolerate any further surgery. 3patient CT chest also showed evidence of pulmonary abscess status post chest tube placement, pleural fluid cultures are growing Pseudomonas aeruginosa that is sensitive to Zerbaxa as well as tobramycin and Cipro and also growing Alejandra albicans 4patient to continue with tobramycin, Cipro and Diflucan, the kidney function remains to be stable may benefit from a repeat CT of the chest abdominal pelvis and if overall resolution of the abscess antibiotics can be discontinued Dictation was produced using [employer] dictation software. please excuse any gramma tical, word or spelling errors. Time with Patient: Less than 30
--- NOTE | 2024-01-21 15:50 | P.PN ---
Subjective Progress Note Date: 01/21/24 CHIEF COMPLAINT: Abdominal pain HISTORY OF PRESENT ILLNESS: Patient shon in the ICU and on mechanical ve ntilation. Patient is more awake and alert. [facility] He is awaiting insurance authorization. J-tube site drainage has decreased. Afebrile. WBC 16.6 Hgb 7.8 PHYSICAL EXAM: VITAL SIGNS: Reviewed. GENERAL: frail, weak HEENT: Tracheostomy site clean dry and intact ABDOMEN: Distended. Wound VAC intact. J-tube drain with very minimal to no drainage on the dressing. ASSESSMENT: 1. 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 Status post J-tube placement and revision for small bowel obstruction 2. Abdominal wound dehiscence status post wound VAC placement 3. Status post tracheostomy PLAN: -Wound VAC to be changed today -Awaiting insurance authorization for [facility] -Continue TPN for nutrition support Physician [employer] note has been reviewed by physician. Signing provider agrees with the documented findings, assessment, and plan of care. Objective - Vital Signs Vital signs: Vital Signs Temp 98.2 F 01/21/24 12:00 Pulse 75 01/21/24 15:33 Resp 26 H 01/21/24 14:00 BP 121/82 01/21/24 14:00 Pulse Ox 99 01/21/24 14:00 FiO2 30 01/21/24 15:09 Intake & Output 01/20/24 01/21/24 01/21/24 18:59 06:59 18:59 Intake Total 2237.993 1384.24 1000 Output Total 1700 1540 1330 Balance 537.993 -155.76 -330 Weight 100.6 kg 105.3 kg Intake: IV 1980 1100 1000 0.9 Normal Saline @ KVO 110 110 70 Fluconazole in NaCl,Iso- 200 Osm 200 mg In Saline 1 100ml.bag @ 100 mls/hr IVPB DAILY [facility] Rx#: [id number] Potassium Chloride 10 meq 200 In Water For Injection 1 100ml.bag @ 100 mls/hr IVPB Q1H [facility] Rx#: [id number] Sodium Chloride 0.9% 1, 290 0 300 000 ml @ 50 mls/hr IV . Q20H [facility] Rx#:[id number] TPN 1080 990 630 Tobramycin Sulfate 600 mg 100 In Sodium Chloride 0.9% 100 ml @ 115 mls/hr IVPB Q48H [facility] Rx#:[id number] Intake, IV Titration 257.993 284.24 Amount Dexmedetomidine/0.9% NaCl 257.993 284.24 (Pmx) 400 mcg In Empty Bag 1 bag @ 0.2 MCG/KG/HR 5.2 mls/hr IV .[id number] [facility] Rx#:[id number] Output: Drainage 220 170 80 Medial Abdomen 0 0 0 Right Abdomen 100 140 50 Right Upper Posterior 120 30 30 Chest Urine 1480 1370 1250 Other: Voiding Method Indwelling Catheter Indwelling Catheter Indwelling Catheter ABP, PAP, CO, CI - Last Documented Arterial Blood Pressure 173/76 - Labs CBC & Chem 7: 01/21/24 06:16 01/21/24 06:16 Labs: Abnormal Lab Results - Last 24 Hours (Table) 01/20/24 01/20/24 01/21/24 Range/Units 18:06 23:33 05:08 WBC (3.8-10.6) k/uL RBC (4.30-5.90) m/uL Hgb (13.0-17.5) gm/dL Hct (39.0-53.0) % RDW (11.5-15.5) % Neutrophils # (1.3-7.7) k/uL Sodium (137-145) mmol/L Carbon Dioxide (22-30) mmol/L BUN (9-20) mg/dL Creatinine (0.66-1.25) mg/dL Glucose (74-99) mg/dL POC Glucose (mg/dL) 165 H 193 H 156 H (70-110) mg/dL Calcium (8.4-10.2) mg/dL Magnesium (1.6-2.3) mg/dL 01/21/24 01/21/24 01/21/24 Range/Units 06:16 06:16 12:01 WBC 16.6 H (3.8-10.6) k/uL RBC 2.63 L (4.30-5.90) m/uL Hgb 7.8 L (13.0-17.5) gm/dL Hct 24.4 L (39.0-53.0) % RDW 16.7 H (11.5-15.5) % Neutrophils # 12.4 H (1.3-7.7) k/uL Sodium 129 L (137-145) mmol/L Carbon Dioxide 21 L (22-30) mmol/L BUN 27 H (9-20) mg/dL Creatinine 0.59 L (0.66-1.25) mg/dL Glucose 168 H (74-99) mg/dL POC Glucose (mg/dL) 198 H (70-110) mg/dL Calcium 7.3 L (8.4-10.2) mg/dL Magnesium 1.4 L (1.6-2.3) mg/dL Assessment and Plan Assessment: 1. 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 Status post J-tube placement and revision for small bowel obstruction 2. Abdominal wound dehiscence status post wound VAC placement 3. Status post tracheostomy PLAN: -Wound VAC to be changed today -Awaiting insurance authorization for [facility] -Continue TPN for nutrition support Time with Patient: Less than 30
[2024-01-21] MEDS: 1: MVI, ADULT NO.4 WITH VIT K 10 ML, TRACE (CONC-1ML/DOSE) 1 ML, PARENTERAL ELECTROLYTES IV SCH (16:05)
--- NOTE | 2024-01-21 16:35 | P.PN ---
Progress Note - Text Progress Note Date: 01/21/24 Chief Complaint: On the ventilator This is a 73-year-old patient, follows with Dr. Patricia Deal. Patient was seen this morning in the ICU. Patient's and daughter at the bedside. History obtained predominantly by the . Patient been having trouble with his stomach symptoms for close to 8 months. Patient underwent EGD by Dr. Sahara Cheng yesterday. Patient was found to have ulcerated around the antrum and obstruction to the pylorus. A lot of retained food was found. Patient aspirated. Had to be intubated and brought to the ICU. On a Levophed drip. FiO2 50 and a PEEP of 6. Patient had been losing weight lost about 25 pounds. Previously has a history of mitral valve prolapse. November 13: ICU. Patient remains on Precedex drip and propofol drip. Did not do well attempted extubation yesterday. Patient been off Levophed. NG tube to suction. Spoke to patient's and son at the bedside. Biopsy results awaited. Hemoglobin dropped to 6.9 this morning. Get a unit of blood. November 14: ICU. Up in a chair. Extubated yesterday. NG tube to suction. at the bedside. 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 Oncology was consulted. They have ordered a port. Results discussed with Dr. Sahara Cheng. General surgery was consulted for J-tube placement. Discussed with at the bedside. Patient getting IV fluids, IV Zosyn,. Patient has been on IV amiodarone for A-fib-back in sinus rhythm. Multiple PACs. Did receive unit of blood yesterday. Also IV ferric gluconate. November 15: ICU. Patient earlier today underwent jejunostomy tube placement and a port placement. Patient awake. Answering questions. NG tube to suction present. Updated patient's . Patient remains on IV amiodarone and IV Zosyn. November 16: ICU. Up in the chair. NG tube present but not to suction. Trickle feeding through the jejunostomy tube should be started today. Dietitian has been on board. IV Zosyn to continue. Patient's and his sister at the bedside. Discussed. Also spoke with Dr. Serna. Given patient has no other predisposing cardiac factors for the A-fib except acute illness. His LV function is normal. Left atrium is normal. He has already been loaded with IV amiodarone. Will switch him to oral Lopressor 12.5 twice daily. Hence will DC amiodarone. Patient yesterday had wheezing was put on bronchodilators steroids per pulmonary. November 17: Propped up in bed. NG tube was discontinued. Sinus rhythm. Remains NPO. Getting G-tube feeding at 40 cc an hour. Dietitian following. Get arrangements done for DC home tomorrow including tube feeding. Increase activity discussed with patient and elder daughter at the bedside. Still requiring oxygen. Incentive spirometry. November 18: Patient up in recliner. Earlier today spoke to social media marketing specialist David. Informed patient is rather weak [facility] Looking at authorization. Denae came to the room and spoke to patient his and his daughter. They are very keen to take the patient home as 3 daughters all nurses and they will take care of him at home. Patient earlier today to abdominal cramping and some loose stools.'s tube feeding was held. Told the nurse to start back at the rate of 40 cc an hour. He was before the getting it at 55 cc an hour. Incentive spirometry was again emphasized. Patient remains on 4 L of oxygen. November 19: I saw the patient this morning. Hence I am in the evening. Morning was sitting with his sons. Has some edema. Lungs had crackles I gave him 40 mg of Lasix. He did make good urine. Tube feeding was held from the p revious evening of because of abdominal cramping. Acute abdominal series showed nonspecific bowel gas pattern and SBO to be ruled out. Family and patient was updated. Told him discharge will depend on day by day. Later this afternoon CT scanAnd abdomen pelvis done. Showed small bowel to be 3 point centimeter dilated. Some anasarca. Gastric findings. Gallstones. Later spoke to Dr. Irby from general surgery. They will further review and decide about further plan of action. Will give further dose of IV Lasix because of fluid overload from likely hypoalbuminemia and IV fluids previously received. Patient may take his pills by mouth. Total time spent today about 1 hour with over 40 minutes of discussion. Patient did state his breathing is better after Lasix this morning. November 20: Saw the patient this morning. was present. Patient received 2 more doses of Lasix. Diuresed well. Breathing much better. Lungs are sounding better. Discussed with Dr. Zepeda other surgeon. He is taking 3 cc out of the balloon and the gastrostomy tube. Started trickle feeding at 5 cc an hour. Will see how this does. Later in the day ran into the and the daughter again. Did update them on the same. Dilaudid was discontinued yesterday but morphine was ordered by surgery for patient having pain. Concerns about GI issues with that we will DC the morphine. As family does not want the same. November 21: Patient reclining bed. Tired. Several family members at the bedside. Including his and eldest daughter. Patient started on trickle feed yesterday at 5 cc an hour. This morning he has been on 10 cc an hour. Still having some loose stools. C. difficile was ordered. Patient on 2 L of nasal cannula. Has diuresed well. Will give an additional dose of Lasix today. If C. difficile is negative and the diarrhea is from the tube feedings we may have to use a fecal management system to keep him comfortable. Otherwise patient remains NPO. Dietitian is following the patient. Care was discussed length with patient the and daughter at the bedside. Questions answered. Liquid Tylenol has been added for abdominal pain. Avoid narcotics. Elevated white count likely from Solu-Medrol 11/23/2023--patient was feeling better today. Multiple family member at bedside. No issues overnight. Normal saline at 10 cc an hour, tube feeding at 20 cc an hour, remains on Zosyn, on 3 L oxygen. Afebrile. Heart rate 62, respiratory rate 16, blood pressure 114/67, saturating 91% on 3 L. WBCs 14.5, 9.7 hemoglobin. Platelet 242. BMP is unremarkable. Pulmonary and general surgery following. General surgery recommended to continue tube feeds at 20 cc/h. 11/24/2023--patient reported significant abdominal discomfort, also noted to have leak around G-tube. General surgery is following, evaluated the patient at bedside, adjusted tube feeds. Also reported having diarrhea, on 2 L oxygen, went up to 5 L. Blood pressure was low, 500 mL fluid bolus with close monitoring of respiratory status ordered. Currently on DuoNebs, Solu-Medrol, will continue Zosyn. Chest x-ray showed a left lower lobe infiltrate. Abdominal x-ray showed multiple air-fluid levels. CT abdomen showed multiple dilated small bowel loops, consistent with obstruction, pneumoperitoneum, cholelithiasis and ascites. WBCs 14.1, platelet 255, hemoglobin 8.9. NG tube in place. Family at bedside. patient transferred to SICU for close monitoring. 11/25/23--patient is currently in the ICU, required Levophed overnight due to low blood pressure, low urine output with creatinine trending up. Nephrology following. Waiter/Waitress Tourist Class also following. Patient remains n.p.o., NG tube in place, following NG tube insertion patient had total of 2 L output, J-tube was draining approximately 200 cc over last 8 hours, continues to have abdominal pain and abdominal tenderness. Patient on IV fluids. Currently on 4 L oxygen. WBCs 8.2, hemoglobin 12.3, platelet 188. Chest x-ray earlier today showed right sided port and a stable left lung airspace disease, NG tube in place. Patient currently on Zosyn, on IV Dilaudid for pain control, on IV Solu-Medrol. General surgery planning for OR today, started on TPN. 11/26/23--patient was seen and examined today. Patient is currently sedated, intubated on mechanical ventilation. Family at bedside. Patient underwent ex lap, abdominal washout, small bowel resection with new feeding jejunostomy tube placement yesterday, small bowel was noted to be perforated with significant contamination of abdominal cavity. Patient is currently on vancomycin and Zosyn. Creatinine went up to 2.85, nephrology following, recommended to continue IV fluids, avoid nephrotoxin Preserved EF on echocardiogram.. Patient currently on Levophed, vasopressin in the ICU for close monitoring. Patient is afebrile, heart rate 122, blood pressure 129/76, currently on mechanical ventilation, sedated. November 26: ICU. Intubated. FiO2 60 and a PEEP of 5. Drips include IV amiodarone. Heart rate was up early did get fired microgram of IV digoxin and 2.5 mg of IV Lopressor. Did drop her blood pressure bit. Urine output was low. Received 80 mg of IV Lasix. Ahmet to 150 cc. Other drips include IV propofol, vasopressin, Levophed. TPN was started yesterday. Antibiotics include IV Zosyn and vancomycin. Patient has a J-tube to drainage to gravity. Spoke to patient's younger daughter and at the bedside. Prognosis guarded. Continue current treatment plan. Chest x-ray shows right lower lobe consolidation. Small pleural effusion. November 27: ICU. Intubated. FiO2 55 and a PEEP of 5. Antibiotics include IV vancomycin. Drips include Levophed at a small dose, IV vasopressin, propofol, amiodarone. Patient converted to sinus rhythm this morning. Getting TPN and normal saline at 75 cc an hour. Urine output about 25 cc an hour. RAYA drain put out about 260 cc last 12 hours that is last shift nurse manager. NG tube with bilious output. And also GI J-tube output to gravity. Spoke to patient's and daughter at the bedside. They understand patient still not out of the kee. Platelets have dropped-therefore probably Zosyn stopped. November 28: ICU. Intubated. FiO2 55 and a PEEP of 5. Patient is in sinus rhythm. Seen this morning. Due for dialysis catheter this afternoon. Urine output about 15 to 20 cc an hour. Patient is on IV Lasix 80 mg every 12. Saline is KVO. Drips include IV propofol vasopressin. Patient having significant output through the RAYA drain and the jejunostomy tube to drainage. Creatinine had been getting worse. Patient's at the bedside. Understands patient's remains critically ill. Hemoglobin is down to 7. Given that patient's pain hypotensive, and on vasopressin we will give a unit of blood with dialysis. Getting TPN antibiotic changed to IV meropenem November 29: ICU. Intubated. FiO2 55 and a PEEP of 5. Remains in sinus rhythm. Getting TPN. Dialyzed yesterday and this morning. About 1000 cc removed. Urine output about 50 cc an hour. Patient is on IV propofol. Off vasopressin. Still having significant output through the RAYA drain and jejunostomy tube. Patient received a second unit of blood yesterday. Patient's and daughter at the bedside. I did discuss guarded prognosis. Did asked them to revisit CODE STATUS.. Getting IV meropenem. November 30: ICU. Intubated. Did get a sedation holiday t today. Back on propofol. Getting TPN. Still getting IV Lasix. Fair urine output. Jejunostomy tube in last 8 hours was about 30 cc output. RAYA drain in the 8 hours had about 180 cc output. Telemetry shows sinus rhythm. NG tube has low intermittent suction with negative output. On the vent with FiO2 40 and a PEEP of 5. No hemodialysis today. Discussed with the and eldest daughter at the bedside. IV meropenem-patient's sputum had grown Citrobacter freundii and Pseudomonas aeruginosa. December 01: ICU. Intubated. Jejunostomy tube to gravity. Only 10 cc output in last 24 hours. RAYA drain. About 190 cc last 6 hours. Nasogastric tube to low intermittent suction. Minimal output. Patient is on a small dose of propofol 5 mics. Telemetry shows sinus rhythm. Patient started on small dose of Cleviprex this morning. Blood pressure. Getting TPN. FiO2 35 and PEEP of 5. Discussed with the at the bedside. Hemodialysis today December 02: ICU. Patient remains intubated. FiO2 35 PEEP of 5. Patient is on IV propofol. IV Cleviprex was discontinued yesterday. Also remains on TPN. Telemetry shows sinus rhythm. NG tube is good no output. Still significant output through the RAYA drain. Jejunostomy tube has minimal output. Patient had hemodialysis today 2 L of fluid was removed. Oral half liters yesterday. Patient getting a sedation holiday. General Surgery started the patient on trickle feeding at 10 cc an hour. I did speak to patient's at the bedside. Prognosis remains guarded but there is some improvement. December 03: ICU. Intubated. FiO2 35 PEEP of 5. Drips include IV propofol and Precedex. Getting TPN. Telemetry shows sinus rhythm. Remains on IV Lasix 80 mg twice a day. IV meropenem. Because patient gets easily agitated when transitioning off propofol he has been switched over to Precedex. For hemodialysis today. December 04: ICU. Intubated. FiO2 35 and a PEEP of 5. Patient been taken off propofol is on Precedex. Telemetry sinus rhythm. J-tube with minimal output. RAYA drain with decreased output. NG tube to suction minimal output. Family wanted to hold off trickle feeding until cleared by oncology. Which he did today. Trickle feeding will be started today. Spoke to patient's and one of the daughters at the bedside. Dr. Russ is spoken to the earlier this point they want to do further tracheostomy tube. October 4: ICU. Intubated. FiO2 35 PEEP of 5. Patient remains on Precedex and PPN. Patient's dialysis catheter was not functioning is getting another [address] Bobby this afternoon. Remains on IV meropenem. Has a RAYA drain in the jejunostomy tube to gravity. NG tube to low intermittent suction. No family at the bedside. December 06: ICU. Intubated. FiO2 35 PEEP of 5. RAYA drain putting out about approximately 120 cc per shift. Patient on IV Precedex. FiO2 35 PEEP of 5. Telemetry-sinus rhythm. Patient occasionally been put on small dose of Levophed specially for hemodialysis getting it today. Also started on midodrine for low blood pressure. Tolerating tube feeding at 10 cc an hour. Also had a bowel movement. Mentation has not improved. Even with sedation holiday. Neurology consulted. CT brain shows no acute process. December 07: ICU. Intubated. FiO2 35 PEEP of 5. Telemetry-sinus rhythm. NG tube to suction low intermittent minimal output. Getting TPN. Tube feeding at 20 cc an hour. RAYA drain averaging over 100 cc per shift. Remains on Precedex. EEG was done today. Discussed with at the bedside. Family is currently not inclined for tracheostomy tube today. Day 13 of being intubated December 08: ICU. Intubated. FiO2 35 PEEP of 5. Patient is put on back on propofol per institutional asset manager Dr. JIMENEZ. EEG did show some potential for spikes was put on Keppra by neurology. Telemetry shows sinus rhythm. NG tube to suction with no output. Tube feeding was put on hold because of questionable discharge on the site. Being restarted today. RAYA drain is 150 cc last 12-hour shift. Patient does open eyes. Family has decided to proceed with tracheostomy and surgery has been consulted for the same. Spoke to the at the bedside. For hemodialysis today. December 09: ICU. Intubated FiO2 35 PEEP of 5. Patient seen this morning. Pending tracheostomy placement this afternoon. Remains NPO. G-tube feeding was held overnight. RAYA drain putting out about 100 cc per shift. Received a unit of blood for hemoglobin of 6.6. On 25 mics of propofol. Getting TPN and meropenem. Spoke to the at the bedside. Patient became hypotensive with dialysis yesterday. Levophed had to be given. Only 800 cc were removed yesterday. No hemodialysis today. December 10: ICU . FiO2 35, PEEP 5. Tracheostomy was done yesterday by Dr. Ewing. G-tube feeding was started today at 10 cc an hour. Dietitian following. RAYA drain 12-hour shift overnight put out about 30 cc. Patient hemodialysis today about 1 L removed. Patient has a sacral stage II decub with a dressing. On propofol 20 mics. Spoke to at the bedside. TPN. Meropenem was discontinued yesterday. December 11: ICU. FiO2 35 PEEP of 5. Tracheostomy. NG tube was discontinued. No hemodialysis today. Telemetry shows sinus rhythm. J-tube feeding at 40 cc an hour. TPN was discontinued. Patient has been off propofol also. PICC line in place. Patient had a EEG done today. Spoke to patient's elder daughter at the bedside. May open eyes occasionally. Not really following commands December 12: 73-year-old white male with history of chronic abdominal pain for the last 8 months has been treated with Protonix 40 mg daily for the last 3 months with no improvement. Patient had a 22 pound weight loss in the last [address] of the abdomen and pelvis 3 weeks ago showed thickening of the antral wall with pathological adenopathy posterior to the stomach suspicious of neoplasm. Today the patient underwent elective upper endoscopy to evaluate further, patient received IV sedation by anesthesia endoscope was inserted into the mouth, esophagus was intubated without any difficulty there was evidence of large amount of liquid and solid food noted in the stomach suggestive of gastric outlet obstruction. Scope could not be advanced through the pylorus, however in the prepyloric area there was a large superficial ulceration identified with multiple biopsies were done from this area. The body cardia and fundus could not adequately visualize because of large amount of retained food in the s tomach. Scope was withdrawn back to the stomach and upon careful examination the mucosa of the antrum body and cardia as well as the fundus appeared normal. Procedure was being performed and biopsies were done patient threw up and subsequently became hypoxic there was clearly evidence of witnessed aspiration anesthesia intubated the patient, procedure was terminated, and the patient was transferred to the ICU, this consult was initiated. Patient is now on assist- control rate of 20 tidal volume 500 FiO2 70% PEEP of 10 ABG is pending, earlier ABG showed profound hypoxia patient is on propofol at 50 mcg/kg/min, next ABG is pending. Chest x-ray showed chronic changes without evidence of acute pulmonary disease. 12/14/2023 Patient remains in the ICU, generally weak Patient s/p tracheostomy G-tube in place Patient still has fever and mild tachycardia but tachycardia is improving, leukocytosis improving as well. Hemoglobin 8.1. Creatinine 3.0 and nephrology team on the case. He has mild transaminitis. He was getting Zosyn which is held now, nowCalcitonin is pending 12/14 Patient shon in the ICU, he is still encephalopathic and does not follow command. Neurology service following closely. He is status post tracheostomy. Also J-tube His abdomen looks soft and on exam he has mild coarse secretions. Has a Abarca catheter with clear urine His pro- Calcitonin is still high but trending down 3.0 down to 1.9 No fever this morning WBC slightly less at 16.3 Patient currently off antibiotic He is getting steroids IV Solu-Medrol which might contribute to his leukocytosis. Also he is on IV Keppra by neurologist 12/14 Patient remains confused in the ICU calm, he had a good night per family member and staff. Tracheostomy in place Patient has occasional coughing spells, patient also developed some partial wound dehiscence in his abdomen, surgery team are aware and are going to evaluate the patient Patient also has positive blood culture from 12/13: Gram-positive cocci in clusters. Patient received one-time dose of IV vancomycin. Patient also had fever 2 days ago, leukocytosis and total elevated pro- Calcitonin. Therefore we are going to consult infectious disease team. As his antibiotic Zosyn was stopped few days ago. Currently patient KVO He has good urine output December 16: ICU. Trach. Congested. Requiring suctioning. No hemodialysis today. Getting G-tube feeding at 50 cc an hour. FiO2 30 and a PEEP of 5. On IV Precedex. Eyes open. Does follow commands. Weakness in the limbs. Spoke to at the bedside. Sputum positive for Klebsiella oxytoca and Pseudomonas aeruginosa. December 17: ICU. On trach. Currently cough with increased secretions requiring suctioning. Adding scopolamine patch. Very much clear secretion. CT scan is showing right upper lobe lung abscess. G-tube feeding at 50 cc an hour. Hemodialysis today. RAYA drain putting out about 140 cc a shift. Serous. Has been midline incision wound dehiscence. Wound VAC was placed on it. Stage II ulcer. Patient is on Precedex drip 0.15 mics. Urine output is good about 6200 cc an hour. Spoke to the at the bedside. Patient currently not stable for transfer to LTAC. No limb movements. PT OT on the case. otherwise awake does follow simple commands by face December 18: ICU. Patient seen this afternoon. Because of pain getting IV Dilaudid. No nasal cannula on room air. Does move about his head. Telemetry shows sinus rhythm. FiO2 30 and a PEEP of 5. Patient started on scopolamine patch yesterday has decreased secretions today. Good urine output. Tube feeding at 60 cc an hour. Wound VAC on incisional would be high since in place. RAYA drain continues to make output. No hemodialysis today December 19: ICU. Patient was seen earlier today. FiO2 30 and a PEEP of 5. Sinus rhythm. Awake. Does follow with eyes. Tube feeding got obstructed tube feedings held for now. Increasing oozing from the incision drainage site. at the bedside. Wound VAC remains in place. Good urine output. Dialysis held today. December 20: ICU. Per nephrology no dialysis today. 1 L fluid bolus given. J- tube was replaced over the wire by Dr. Ewing from surgery. On Precedex 0.6 mcg. FiO2 30 and a PEEP of 5 on the vent. RAYA drain putting out of around 100 cc per shift. at the bedside. Drainage through the abdominal incision wound. CT scan abdomen showed tube placement in the small bowel. Stable large right lower quadrant mass with a fluid level. December 21: ICU. No dialysis today. Patient started on trickle feeding through the J-tube yesterday. He started leaking around the J-tube site. Tube feeding was held. Dressings were placed. Wound VAC remains on the incision. Still having output through the RAYA drain. Patient remains on Precedex 0.4 mcg. FiO2 30 and a PEEP of 5. Sinus rhythm. at the bedside. December 22: ICU. Patient was seen this morning today by me. No dialysis today. Patient's and daughter at the bedside. FiO2 30 and a PEEP of 5. Sinus rhythm. Still having significant secretions through the tracheostomy tube. On Precedex 0.4 mcg. Getting D5W IV fluids. Tube feeding remains to be on hold since yesterday. Still output of RAYA drain. Awaiting input from surgery. Discussed with the and daughter. December 23: ICU. Saw the patient this afternoon. Because of good output of urine dialysis has been discontinued. Telemetry shows sinus rhythm. FiO2 30 and a PEEP of 5. RAYA output has been around 8200 cc an hour. Good urine output. Patient does have very slight movement of the limbs. Wound VAC is putting out about 20 cc per shift. Yesterday when trickle feeding was started patient's J- tube drainage also started leaking around the insertion site. Tube feeding was held. Patient remains on IV Zosyn and Precedex at 0.3 mcg. I had a very lengthy discussion with patient's daughter and at the bedside overall guarded prognosis. Later surgery spoke to the family, and then the nurse called me that family was wanting transferred to [facility]. I spoke to Dr. Irby. They felt they could not offer anything more at this point. I did call the [facility] transfer engineer steam. Gave them the reason for transfer. Later in the ICU nurse informed me through [employer] that [facility] had declined the transfer. Total time spent today about 50 minutes with over 30 minutes of discussion. December 24: ICU. Patient is doing not too well. Sinus rhythm. Drips include norepinephrine and IV propofol. Surgery did put 2 stitches around the J-tube insertion site. Started on TPN today. FiO2 30 PEEP of 5. Patient became hypothermic put on a Manjit hugger. Also hypoglycemic. Decreased urine output. IV fluids increased. Patient's son was at the bedside. I did speak to patient's eldest daughter outside in the waiting room. Did tell the patient doing very poorly. I did try to call the on the phone number she has gone home. Started an IV antifungal today. December 26, 2023 73-year-old white male with history of chronic abdominal pain for the last 8 months has been treated with Protonix 40 mg daily for the last 3 months with no improvement. Patient had a 22 pound weight loss in the last [address] of the abdomen and pelvis 3 weeks ago showed thickening of the antral wall with pathological adenopathy posterior to the stomach suspicious of neoplasm. Today the patient underwent elective upper endoscopy to evaluate further, patient received IV sedation by anesthesia endoscope was inserted into the mouth, esophagus was intubated without any difficulty there was evidence of large amount of liquid and solid food noted in the stomach suggestive of gastric outlet obstruction. Scope could not be advanced through the pylorus, however in the prepyloric area there was a large superficial ulceration identified with multiple biopsies were done from this area. The body cardia and fundus could not adequately visualize because of large amount of retained food in the stomach. Scope was withdrawn back to the stomach and upon careful examination the mucosa of the antrum body and cardia as well as the fundus appeared normal. Procedure was being performed and biopsies were done patient threw up and subsequently became hypoxic there was clearly evidence of witnessed aspiration anesthesia intubated the patient, procedure was terminated, and the patient was transferred to the ICU, this consult was initiated. Patient is now on assist- control rate of 20 tidal volume 500 FiO2 70% PEEP of 10 ABG is pending, earlier ABG showed profound hypoxia patient is on propofol at 50 mcg/kg/min, next ABG is pending. Chest x-ray showed chronic changes without evidence of acute pulmonary disease. 12/27/2023 Patient is seen and evaluated with family at bedside; remains in the ICU intubated and mechanically ventilated. - ABG showed a pO2 of 99 pCO2 31 pH of 7.44. -- Remains on Eraxis daptomycin and Zosyn patient is intermittently requiring Dilaudid, Ativan does not seem to help his agitation and restlessness. -- Continues to have leakage around the jejunostomy tube, and patient is undergoing the J-tube exchange today. Family is at bedside, seems to be quite anxious about his overall condition, and I explained to the that we are doing the best we can considering his critical illness situation and critical illness polyneuropathy. Patient is profoundly weak, and weaning the patient from mechanical ventilation is almost impossible. At least not at this point yet WBC count is 10.9 hemoglobin is 8.1 basic metabolic profile is normal BUN is 46 creatinine 1.90 patient has been off hemodialysis since the . Chest x- ray continues to show stable findings with right upper lobe opacity and right lower lobe opacity and possibly a small right-sided pleural effusion ----Continue ventilatory support, now on IMV mode rate of 16 with pressure support of 14 Continue Precedex and use Dilaudid 0.5 mg every 2-3 hours as needed. Nutritional support patient is now on TPN, Possible J-tube changed today for J- tube malfunction Continue antibiotics including daptomycin and Zosyn, Eraxis was added by infectious disease 12/28/2023 the patient is seen and evaluated in room at bedside; continues to be afebrile, the patient is on the ventilator through the trach FiO2 is currently stable at 30% no significant pleural effusion clinically patient on requiring any pressor support still having drainage around his jejunostomy tube patient dialysis catheter has been discontinued. Patient white count normalized to 7.6, creatinine is 1.51 patient with pneumonia with a sputum showing Citrobacter and Pseudomonas aeruginosa, the patient sputum repeat is still growing Citrobacter and Pseudomonas sensitive to the Pseudomonas is pending continue with Zosyn -patient did have a positive blood culture with staph epi that was oxacillin resistant as the patient did have a PICC line and the dialysis catheter he is on daptomycin repeat blood culture currently growing oxacillin sensitive staph epi, the patient dialysis catheter has been discontinued Has been sent for the culture -patient also have significant excoriation around his jejunostomy tube site which is still leaking Eraxis was added which will be continued as the patient fever pattern has improved and the patient white count has normalized once again discussed with the nursing staff to apply Triad cream which was discussed yesterday but not applied and monitor clinical course closely 12/29/2023 Patient is seen and evaluated with family members at bedside; remains intubated and mechanically ventilated -- ABG showed a pO2 of 105 pCO2 31 pH of 7.45. Remains on Precedex; multiple antibiotics and antifungal including Eraxis daptomycin and Zosyn. -- chest x-ray is showing improvement in his right upper lobe airspace disease/pulmonary abscess. Right lower lobe seems about the same with chronic opacity and possibly some small right-sided pleural effusion. --Family is at bedside, patient is arousable but does not follow any instructions. Gets extremely restless and agitated easily hence patient is receiving Dilaudid which seems to be working much better for this patient than benzodiazepines --possibly transfer the patient to a select care specialty. 12/30/2023 Evaluated in follow-up in the intensive care unit. He remains on the mechanical ventilator. Status post tracheostomy. There has been a decrease in the amount of leakage around the J-tube site he continues on a gravity flow. TPN is infusing tube feedings remain on hold at this time. No bowel movement reported for the last 5 days. X-ray today reveals extensive pleural parenchymal opacities throughout the right with at least a moderate pleural effusion. Mild patchy densities left mid and lower lung are also similar. Blood work reveals a white blood cell count 11.5, hemoglobin 8.1, platelet count of 78, sodium 142, potassium 4.2, BUN of 42, creatinine of 1.22, Phos of 2.3, magnesium 1.9. Patient continues on IV anidulafungin IV Zerbaxa IV daptomycin. Patient is currently sedated with propofol and also Precedex which is currently on hold at this time. December 31, 2023: ICU. Patient continues to do poorly. On propofol 35 mics. Also getting IV Dilaudid and IV Ativan.. Telemetry shows sinus rhythm. J-tube feeding has been discontinued. Significant output through the Abarca bag and around the G-tube site. Patient also putting out through the RAYA drain on the right side. Getting TPN and lipids. Patient is antimicrobial include iv aniedulefungin, IV ceftolozane/tazobactam, IV daptomycin Advance care planning [October 31, 2023] I met with patient's at the bedside. Went through in detail with patient is overall very poor clinical status. Chances of any meaningful recovery next to minimal. I also did mention that patient in my opinion was not stable to go to chronic ventilator setting. I suggested comfort care/hospice. I did not feel and why all honesty that patient is benefiting any further from the treatment we are giving him in fact causing probably more suffering. I also spoke to patient's daughter outside in the waiting room. Total time spent about 50 minutes with over 30 minutes of discussion. Later I called Dr. Luther JIMENEZ the institutional asset manager after he received a text that family was expressing that some physician expressed he was doing better and giving hope. I spoke to nurse Lemos in the evening and she and Dr. JIMENEZ did go and talk to patient's family at the bedside later. January 01, 2024: ICU. FiO2 30 and a PEEP of 5. Continues to have increased drainage at the G-tube site. Wound VAC in place over the incision. RAYA drain continues to put out excretions. Good urine output. Drips include IV propofol at 20 mics, also getting IV Ativan and Dilaudid. Patient also keeping getting TPN lipids. Spoke to the patient's at the bedside. No further questions. I did speak to Dr. Irby from general surgery. Hence it is both our impression again that changing the tube will not make any difference to the bigger picture. And probably futile. Dr. Irby will be speaking to the family today. David from social media marketing specialist did ask about of family meeting. I did reiterate that I spoken at length to the a few times and also the daughter. Dr. Jimenez also spoke to the and Dr. Irby will be speaking with the today. Prognosis remains to be very poor. I did tell the in my opinion probably the patient is not r a candidate for long-term facility. Will institutional asset manager Dr. Jimenez determine if the patient is a candidate for long-term chronic ventilator facility. January 02, 2024: ICU. FiO2 30 PEEP of 5. Telemetry sinus rhythm. Drips include propofol at 20 mics. Patient getting TPN lipids. Receiving 1 unit of packed red blood cell. Patient was having a breakdown around the tracheostomy stoma site. With a cuff leak. G-tube site is continues to have increasing output. Wound VAC in place. RAYA drains also having increasing output. Patient sister and daughter from [place] from out of town. Earlier they spoke at length with Dr. alford from general surgery. Prognosis remains poor. January 03, 2024: ICU. FiO2 30 PEEP of 5. On propofol. 50 mics. Getting TPN lipids. Sinus rhythm. Wound VAC in place. Drainage around the j-tube site. RAYA drain continues to drain. Patient somewhat sedated. at the bedside. Later social media marketing specialist David inform me that the surgical team Dr. Irby has suggested possible you have [facility], to which family is trying to obtain transferred to. Per Dr. Jimenez note patient has been decline by long-term care twice. Prognosis remains poor. at the bedside. Had no questions. Brother Nathan is present. January 04, 2024: ICU. FiO2 30 PEEP of 5. Propofol was held this morning. Getting TPN lipids. Sinus rhythm. Wound VAC remains in place. Continues to have drainage around the J-tube. RAYA drain continues to have output. at the bedside. She had no questions. Antibiotics in place. January 05, 2024: ICU. FiO2 30 PEEP of 5. Audibly sounding congested. Getting TPN lipids. Sinus rhythm. Wound VAC in place. Drainage around J-tube site. RAYA output continues. No family at bedside. Getting antibiotics. Lethargic January 06, 2024: ICU. FiO2 30 PEEP of 5. Patient is been off propofol since yesterday. Does move his head about. Try to open his eyes sometimes. Sinus rhythm. Blood pressure is running high yesterday. Started on Cleviprex. Hydralazine is being added. Continue to get TPN lipids. J-tube site remains excoriated. Wound VAC in place. RAYA output about 40 to 50 cc is a 12-hour shift. Patient elder daughter at the bedside. Eraxis was discontinued on January 02. Daptomycin is being discontinued by ID. Continue ceftolo'szone. CT abdomen pelvis done today: 3.1 cm organized fluid collection within the rectovesicular space concerning for abscess. No change in right upper lung 4.9 cm fluid collection with a fluid level. For possible pulmonary abscess. Moderate size right lung base multiloculated hydropneumothorax possibly abscess. Additional areas of air bronchograms. January 07, 2024: ICU. FiO2 30 PEEP of 5. Patient was taken down for pigtail drainage of the right lung abscess. About 200 cc of pus was obtained. Nurse informed me when they told him about for the procedure a lot of pus gushed out from the tracheostomy site. Dr. Love at the bedside did a bronchoscopy. Some pus was aspirated. No obvious fistula was noted. Patient is being back on Cleviprex drip. TPN lipids. January 08, 2024: ICU. Patient was having severe bouts of coughing. Unable to maintain ventilation. Patient was put on Nimbex drip and propofol drip. TPN lipids continue. Has a right chest wall pigtail catheter 90 cc output in 12- hour shift. Drainage from around the J-tube site. RAYA drain continues Ahmet to have an output. Abdominal wound is high since with the wound VAC in place. Patient sedated. January 09, 2024: ICU. Patient is off propofol and Cleviprex. Does open eyes. RAYA drain. About 40 cc last 24 hours. J-tube site continues to have increased output. Requiring dressing change every so often. Wound VAC in place. Patient getting Dilaudid and Ativan. Telemetry shows sinus rhythm. 40 cc out of the pigtail drainage. Patient started on ciprofloxacin and tobramycin. Remains on TPN and lipids. Patient's eldest daughter and at the bedside. No new questions. January 10, 2024: ICU. Overnight patient had become asynchronous. Had to be put on Precedex drip. Hemoglobin dropped down to 6.6. Monitor blood ordered. RAYA output about 100 cc last 24 hours. Wound VAC remains in place. TPN lipid continues. Patient also has a leak in the right pigtail catheter. Sinus rhythm. Continues to have increased secretion at the G-tube site. Ventilator FiO2 30 and a PEEP of 5. at the bedside. Had no further questions. January 11, 2024: ICU. Patient remains on IV Precedex. TPN.'s RAYA output over 30 cc last 24 hours. Wound VAC remains in place. Sinus rhythm. FiO2 30 PEEP of 5. Pigtail with very little output. Spoke to Dr. Love who only spoke to the patient's at length. Gnosis poor. When I walked in patient's 2 daughters and the present. is very tearful crying hugging the patient. The daughter had no further questions January 12, 2024 Ahmet: ICU. Continues on IV Precedex. Getting TPN lipids. Wound VAC in place. Sensitive. FiO2 30 and a PEEP of 5. Patient's at the bedside. Had no questions. January 13, 2024: ICU. FiO2 30 PEEP of 5. Remains on Precedex 0.8 mg. Eyes open. Sometimes does track with head. Not moving limbs. Some decrease in output from the G-tube site. Wound VAC putting out about 100 cc every 12 hours. RAYA drain about 100 cc every [address] Russ met with the family earlier today. Patient's been made DNR. Telemetry sinus rhythm. Patient's and daughter at bedside. They have no questions January 14, 2024: ICU. FiO2 30. PEEP of 5. Patient is has eyes open and tracking. Urine output about 100 cc an hour. NG site output looks like gastric contents. RAYA site about 50 cc in the last 12 hours. Telemetry sinus rhythm. and daughter have asked for hospice consultation for informational visit. They want to use [facility]. I sat with them and the nurse and a full expression of the hospice involved involved. Several questions answered. Daughter does express that she would like to take the patient home. The other sibling will be coming on from [place] on Saturday. They want to hold on at least until then. January 15, 2024: ICU. FiO2 30 and a PEEP of 5. Getting CPAP today. Asynchronous better. J-tube site continues to have increase secretions. Sinus rhythm. Awake. Does move his head possibly to command. Remains on Precedex. Getting Dilaudid. Fair urine output. Has a air leak in the pigtail. Minimal output through the chest tube. RAYA drain continues to have an output. at the bedside. January 16, 2024: ICU. On the ventilator FiO2 30 and a PEEP of 5. Pressure support mode. Wound VAC remains in place. J-tube site continues to have output. RAYA drain putting out output. Remains on pressors Precedex and getting Dilaudid. Antibiotics per ID. Patient being planned to go home tomorrow with home hospice. at the bedside. Had no further questions. Being followed by social media marketing specialist David and home hospice team from [facility] The plan for tomorrow currently is as follows: -Hospice arranging for transport with portable ventilator, to home with family -Antibiotics as discussed with ID will be discontinued -Wound VAC to be removed prior to discharge per surgery -RAYA drain to remain in place with dressing changes at the J-tube site. Dressing changes at the incision site per surgery. -TPN lipids will be discontinued prior to discharge -Patient to be taken off Precedex by r institutional asset manager January 21, 2024: ICU. Ventilator FiO2 30 and a PEEP of 5. Precedex drip. Sinus rhythm. Does wake up and follow commands. Weak in the limbs. Very little output through the RAYA drain. Wound VAC in place. Requiring Dilaudid for pain control close to every 2 hours. Over the weekend patient and family dec ided not for hospice. Patient is now full code instructions. Looking at long- term placement. Patient on tobramycin and ciprofloxacin and Diflucan per ID. Patient and daughter at the bedside.. Physical therapy in the room for passive movements. Family being educated. Since yesterday patient has been on pressure support./CPAP. Getting TPN lipids. Active Medications Acetaminophen (Acetaminophen Suppository 650 Mg Supp) 650 mg RECTAL Q6HR PRN PRN Reason: Fever Albuterol/Ipratropium (Ipratropium-Albuterol 3 Ml Neb) 3 ml INHALATION RT-QID NIRMAL Last Admin: 01/21/24 15:15 Dose: 3 ml Albuterol/Ipratropium (Ipratropium-Albuterol 3 Ml Neb) 3 ml INHALATION RT-Q2H PRN PRN Reason: Shortness Of Breath Or Wheezing Last Admin: 01/08/24 04:01 Dose: 3 ml Bisacodyl (Bisacodyl 10 Mg Supp) 10 mg RECTAL DAILY [facility] Last Admin: 01/21/24 10:35 Dose: 10 mg Dextrose/Water (Dextrose 50% Syringe 50 Ml) 25 ml IVP PER PROTOCOL PRN; Protocol PRN Reason: Hypoglycemia Last Admin: 01/03/24 06:18 Dose: 25 ml Dextrose/Water (Dextrose 50% Syringe 50 Ml) 50 ml IVP PER PROTOCOL PRN; Protocol PRN Reason: Hypoglycemia Last Admin: 12/25/23 18:03 Dose: 50 ml Hydralazine HCl (Hydralazine Hcl 20 Mg/Ml 1 Ml Vial) 10 mg IVP Q6HR PRN PRN Reason: SBP >140 Last Admin: 01/07/24 23:28 Dose: 10 mg Hydromorphone HCl (Hydromorphone 0.5 Mg/0.5 Ml Syringe) 0.5 mg IVP Q2HR PRN PRN Reason: Breakthrough Pain Last Admin: 01/21/24 15:37 Dose: 0.5 mg Fat Emulsion Intravenous 250 (ml/ IV Solution) 250 mls @ 21 mls/hr IV [id number]@0900 [facility] Last Admin: 01/21/24 10:33 Dose: 21 mls/hr Ciprofloxacin/Dextrose 400 mg/ (IV Solution) 200 mls @ 200 mls/hr IVPB Q8H [facility] Last Admin: 01/21/24 15:54 Dose: 200 mls/hr Dexmedetomidine HCl 400 mcg/ (IV Solution) 100 mls @ 5.2 mls/hr IV .[id number] [facility]; Protocol Last Admin: 01/21/24 16:08 Dose: 0.7 mcg/kg/hr, 18.2 mls/hr Fluconazole/Sodium Chloride (200 mg/ IV Solution) 100 mls @ 100 mls/hr IVPB DAILY [facility]; Protocol Last Admin: 01/21/24 10:34 Dose: 100 mls/hr Tobramycin Sulfate 600 mg/ (Sodium Chloride) 115 mls @ 115 mls/hr IVPB Q36H [facility] Last Admin: 01/20/24 15:00 Dose: 115 mls/hr Sodium Chloride (Saline 0.9%) 1,000 mls @ 50 mls/hr IV .Q20H [facility] Last Admin: 01/21/24 01:39 Dose: 50 mls/hr Parenteral Vitamin Supplement 10 ml/ Zinc/Copper/Manganese/Selenium 1 ml/ Parenteral Electrolytes 20 ml/ Sodium Acetate 16 meq/ Potassium Chloride 10 meq/ Magnesium Sulfate 0.5 gm/ Sodium Phosphate 12 mmol/ Amino Acids /Dextrose 1,049 mls @ 90 mls/hr IV .BY DURATION [facility] Last Admin: 01/21/24 16:05 Dose: 90 mls/hr Parenteral Electrolytes 20 ml/Sodium Acetate 16 meq/Potassium Chloride 10 meq/Magnesium Sulfate 0.5 gm/Sodium Phosphate 12 mmol/Amino Acids/Dextrose 1,038 mls @ 90 mls/hr IV .BY DURATION [facility] Last Admin: 01/21/24 16:07 Dose: Not Given Insulin Aspart (Insulin Aspart (Novolog) 100 Unit/Ml Vial) 0 unit SQ 0000,0600,1200,1800 [facility]; Protocol Last Admin: 01/21/24 12:20 Dose: 2 unit Levetiracetam (Levetiracetam Iv 500 Mg/5 Ml Vial) 250 mg IVP Q24HR [facility] Last Admin: 01/21/24 10:34 Dose: 250 mg Lidocaine HCl (Lidocaine 2% (Pf) 20 Mg/Ml 5 Ml Vial) 60 mg INHALATION Q6HR PRN PRN Reason: Dyspnea Last Admin: 01/21/24 10:52 Dose: 60 mg Miscellaneous Information (Phosphorus Replacement Protoco 1 Each Misc) 1 each MISCELLANE DAILY PRN; Protocol PRN Reason: Per Protocol Miscellaneous Information (Magnesium Replacement Protocol 1 Each Misc) 1 each MISCELLANE DAILY PRN; Protocol PRN Reason: Per Protocol Miscellaneous Information (Potassium Replacement Protocol 1 Each Misc) 1 each MISCELLANE DAILY PRN; Protocol PRN Reason: Per Protocol Multi-Ingred Cream/Lotion/Oil/Oint (Hydrophilic Cream 180 Gm Tube) 1 applic TOPICAL BID [facility]; Protocol Last Admin: 01/21/24 10:36 Dose: 1 applic Multi-Ingredient Ointment (Zinc Oxide 20% Oint 28.4 Gm Tube) 1 applic TOPICAL BID PRN; Protocol PRN Reason: Skin Irritation Naloxone HCl (Naloxone 0.4 Mg/Ml 1 Ml Vial) 0.2 mg IV Q2M PRN PRN Reason: Opioid Reversal Ondansetron HCl (Ondansetron 4 Mg/2 Ml Vial) 4 mg IVP Q6HR PRN PRN Reason: Nausea And Vomiting Last Admin: 01/21/24 07:03 Dose: 4 mg Pantoprazole Sodium (Pantoprazole 40 Mg/10 Ml Vial) 40 mg IVP BID NIRMAL Last Admin: 01/21/24 10:34 Dose: 40 mg Petrolatum (Zinc Oxide Paste (Z-Guard) 1 Applic) 1 applic TOPICAL BID NIRMAL; Protocol Last Admin: 01/21/24 10:36 Dose: 1 applic Past medical history to include: GERD Social history: . No smoking. Physical examination: VITAL SIGNS: 98.5, 76, 22, 128 x 80, CPAP GENERAL: Eyes open, follows commands moving his head EYES: Pupils equal. , tracking Conjunctiva edouard l. HEENT: External appearance of nose and ears normal, tracheostomy-. NECK: JVD unable to assess; masses not palpable. HEART: First and second heart sounds are normal; edema, present LUNGS: Respiratory rate increased, decreased breath sounds right chest wall pigtail catheter ABDOMEN: Soft, some tenderness. Liver spleen not palpable, no masses palpable..jejunostomy tube-dressing in place, . RAYA drain. Incision with stitches with - wound VAC PSYCH: Unable to assess NEURO: Eyes open. Attempts to talk. Moves his head tracking. Slight movement in the arm. INVESTIGATIONS, reviewed in the clinical context: January 20: White count 6.6 hemoglobin 7.8 platelets 353 sodium 129 potassium 3.7 creatinine 0.5 January 15: White count 12.3 hemoglobin 6.5 platelets 291 January 14: White count 17 hemoglobin 7.9 platelets 310 potassium 3.[address] abdomen pelvis [January 05]: 3.1 cm organized fluid collection within the rectovesicular space concerning for abscess. No change in right upper lung 4.9 cm fluid collection with a fluid level. For possible pulmonary abscess. Moderate size right lung base multiloculated hydropneumothorax possibly abscess. Additional areas of air bronchograms. January 05: White count 10.6 hemoglobin 7.6 platelets 111 sodium 137 potassium 3.5 BUN 44 creatinine 0.95 January 03: White count 13.4 hemoglobin 8.1 platelets 95 potassium 5.2 creatinine 1.1 albumin 1.8 Sputum culture [December 24] Citrobacter freundii, Pseudomonas aeruginosa Blood culture [December 24] Staphylococcus pettenkoferi December 24: White count 1.5 hemoglobin 8.2 platelets 106 potassium 3.8 BUN [address] chest abdomen without contrast [December 16] right upper lung cavitary lesion with air-fluid level in the posterior aspect and a larger cavitary lesion possibly within the lung parenchyma itself. Extending down towards the diaphragm additional airspace opacities in the left lung base. December 09: White count 26.1 hemoglobin 8.6 platelets 154 potassium 4.1 BUN 86 creatinine 3.31. Hemoglobin this morning was 6.6 prior to transfusion EEG-evidence of generalized cerebral dysfunction and sporadic intermittent higher amplitude sharply contoured waves mainly bifrontal. Showing cortical irritability. 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 Serosal fibrous adhesions. Viable margins. Sputum culture: [November 25]: Citrobacter freundii. Pseudomonas aeruginosa November 20: White count 14.4 hemoglobin 8.8 platelets 229 potassium 4.1 BUN [address] scan abdomen [November 19] possible small bowel obstruction Stool: C. difficile negative November 15: WBC 13 hemoglobin 7.7 platelets 248 potassium 4.3 creatinine 0.87 2D echo: EF 55 to 60%. Kidneys bladder: Unremarkable November 13: White count 12 hemoglobin 6.9 platelets 276 potassium 4.4 creatinine 1.21 magnesium 1.8 iron 6 TIBC 365% saturation 1.64 transferrin 261 ferritin 34.6 B12 569 folate 4.4 November 11: Creatinine 0.86 EGD: Large amount of retained solid liquid food noted in the stomach. Large superficial gastric antral ulceration involving most of the antrum extending into the pylorus causing pyloric stenosis. Biopsies were obtained. Chest x-ray film personally reviewed by me-scattered infiltrates Assessment plan: -Aspiration and gram-negative bacterial pneumonia a bilateral initially from retained gastric contents mostly food and liquids, causing acute hypoxic respiratory failure: On presentation: Subsequent bacterial pneumonia and lung abscess sputum culture November 25: Citrobacter freundii, Pseudomonas aeruginosa. December 13: Klebsiella oxytoca, Pseudomonas aeruginosa IV meropenem-, IV Zosyn.IV ceftolozane/tazobactam, IV daptomycin, tobramycin-a ll discontinued Currently getting IV ciprofloxacin. , Tobramycin, Diflucan -Had became asynchronous with the ventilator. On Precedex drip -Pain, multifactorial Getting Dilaudid every 2 as needed -Breakdown of tracheostomy stoma site. Dressing in place Being followed by institutional asset manager -Sepsis with septicemia from above Patient received multiple antibiotics -Right l lung abscess, pigtail catheter placed January 07, 2024. Initially about 200 cc of pus obtained. During the procedure large amount of pus poured out of the tracheostomy site when patient was rolled on the left side. Status post bronchoscopy with some lavage on 01/07/2024 - lung abscess larger 1 on the right side-patient cultures are growing Pseudomonas and Klebsiella oxytoca: , Received other antibiotics. Currently on ciprofloxacin and tobramycin -Acute pulmonary edema and fluid overload from hypoalbuminemic state and fluids from IV.:: Has been getting Lasix and dialysis: Both held -Altered mentation. Possibly encephalopathy. Could be delirium.: Some improvement CT brain [December 06] nothing acute Neurology following EEG-evidence of generalized cerebral dysfunction and sporadic intermittent higher amplitude sharply contoured waves mainly bifrontal. Showing cortical irritability. Keppra was started on December 07 -Critical care poly- Pedro neuropathy: Slow to respond PT OT -Gallstones, asymptomatic -Small l bowel perforation at site of jejunostomy tube tip with balloon..: Portion of small bowel resected. On November 24. New J-tube was placed.- drainage to gravity:-Now discontinued December 19: J-tube blocked. J-tube replaced on December 20 over wire December 21: Leaking around the J-tube site. Feeding held December 23: J feeding was started yesterday evening but again started leaking increasingly around the J-tube site-feeding held again December 24: J-tube feeding has been held. Patient is currently having increased drainage from the J-tube site -Acute kidney injury. Possible ATN from hypotensive shock: Resolved Renal ultrasound unremarkable. Started on renal replacement therapy on November 28. Last hemodialysis on December 17. Being followed by an nephrology. Good urine output. -Nutrition Jejunostomy tube placed November [address] Ewing Received TPN-this was discontinued. TPN lipids restarted on December 24 -Midline abdominal incision wound dehiscence Wound VAC placed -Acute recurrent atrial fibrillation-converted to sinus rhythm Received IV amiodarone. Cardiology following -Acute hypoxic respiratory failure from aspiration pneumonia, status post ventil ator assisted: Reintubated November 25. FiO2 35 PEEP of 5 Tracheostomy tube-by Dr. Zepeda on December 09 -Septic shock, recovered -Hypertension, recurrent Had received Cleviprex. Hydralazine added -Intermittent hypotension: Corrected Intermittent use of Levophed. 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 Also anemia of blood draw. Iron deficiency anemia Received total of 6 units of blood IV iron. -Severe thrombocytopenia. Would consider coagulation disorder secondary to infection., In the setting of underlying lymphoma.: Fluctuating with infection Hematology following. -Acute blood loss anemia, -Sacral stage II decub ulcer Dressing in place -Hypokalemia, multiple causes -Hypoglycemia: Corrected -GERD PPI -Acute diarrhea secondary to tube feeding.: Resolved C. difficile ruled out. -Large superficial gastric antral ulceration involving the gastric antrum extending into the pylorus with gastric outlet obstruction. 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 -DNR made on January 12. Now full code with instructions on January 17 On Precedex. IV ciprofloxacin and IV tazobactam. TPN lipids. 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 Prognosis remains guarded Past Medical History Past Medical History: GERD/Reflux History of Any Multi-Drug Resistant Organisms: None Reported Past Surgical History: Heart Catheterization Additional Past Surgical History / Comment(s): colonsocopy,spinal injection, Past Anesthesia/Blood Transfusion Reactions: No Reported Reaction Past Psychological History: No Psychological Hx Reported Smoking Status: Never smoker Past Alcohol Use History: None Reported Past Drug Use History: None Reported
[2024-01-21 17:57] LABS: Glucose,Whole Blood 165 mg/dL (70-110)
[2024-01-21 23:26] LABS: Glucose,Whole Blood 169 mg/dL (70-110)
[2024-01-22 05:50] LABS: Glucose,Whole Blood 174 mg/dL (70-110)
[2024-01-22 06:08] LABS: Anisocytosis Slight; HCT 24.6 % (39.0-53.0); HGB 7.9 gm/dL (13.0-17.5); Hypochromasia Slight; MCH 29.3 pg (25.0-35.0); MCV 91.6 fL (80.0-100.0); Mean Platelet Volume 7.4; Platelet Count 399 k/uL (150-450); Poikilocytosis Slight; RBC 2.68 m/uL (4.30-5.90); RDW 17.1 % (11.5-15.5); WBC 14.9 k/uL (3.8-10.6)
[2024-01-22 06:30] LABS: ALT 27 U/L (4-49); AST 31 U/L (17-59); African American GFR (CKD) >90 (>60 ml/min/1.73 sqM); Albumin 2.3 g/dL (3.5-5.0); Alkaline Phosphatase 184 U/L (38-126); Anion Gap 4 mmol/L; Blood Urea Nitrogen 25 mg/dL (9-20); Calcium 7.3 mg/dL (8.4-10.2); Carbon Dioxide 22 mmol/L (22-30); Chloride 104 mmol/L (98-107); Glucose 150 mg/dL (74-99); Magnesium 1.7 mg/dL (1.6-2.3); Non-African American GFR(CKD) >90 (>60 ml/min/1.73 sqM); Potassium 3.6 mmol/L (3.5-5.1); Sodium 130 mmol/L (137-145); Total Bilirubin 0.8 mg/dL (0.2-1.3); Total Protein 6.4 g/dL (6.3-8.2)
[2024-01-22] MEDS ORDERED: Magnesium Replacement Protocol 1 EACH MISC MISCELLANE PRN (06:32)
[2024-01-22] MEDS: POTASSIUM CHLORIDE 10 MEQ in WATER FOR INJECTION 1 100ML.BAG IVPB SCH ×2 (06:43→17:49)
[2024-01-22] MEDS: MAGNESIUM SULFATE-D5W PMX 1 GM in DEXTROSE/WATER 1 100ML.BAG IVPB ONE (08:18)
--- NOTE | 2024-01-22 10:11 | P.PN ---
Subjective Progress Note Date: 01/22/24 CHIEF COMPLAINT: Abdominal pain HISTORY OF PRESENT ILLNESS: Patient shon in the ICU and on mechanical ve ntilation. Patient is awake and alert. Patient again had some leaking around the J-tube. No new complaints. Afebrile. Wound VAC changed yesterday. WBC is down from 16.6-14.9 Hgb 7.9 PHYSICAL EXAM: VITAL SIGNS: Reviewed. GENERAL: frail, weak HEENT: Tracheostomy site clean dry and intact ABDOMEN: Mildly distended. Softer. Wound VAC intact. J-tube with bilious drainage noted on bandage. ASSESSMENT: 1. 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 Status post J-tube placement and revision for small bowel obstruction 2. Abdominal wound dehiscence status post wound VAC placement 3. Status post tracheostomy PLAN: -Due to leaking around J-tube site, will not start tube feeds at this time -Awaiting insurance authorization for transfer to select specialty -Continue TPN for nutrition support Physician Epic Kaleidoscope Analyst note has been reviewed by physician. Signing provider agrees with the documented findings, assessment, and plan of care. Objective - Vital Signs Vital signs: Vital Signs Temp 98.2 F 01/22/24 09:00 Pulse 80 01/22/24 09:05 Resp 28 H 01/22/24 09:00 BP 138/123 01/22/24 09:00 Pulse Ox 96 01/22/24 09:00 FiO2 30 01/22/24 09:00 Intake & Output 01/21/24 01/22/24 01/22/24 18:59 06:59 18:59 Intake Total 1700.00 3281.989 771 Output Total 1605 1365 380 Balance 95.00 1916.989 391 Weight 110.8 kg Intake: IV 1600 2000 771 0.9 Normal Saline @ KVO 110 120 11 Magnesium Sulfate-D5w Pmx 100 1 gm In Dextrose/Water 1 100ml.bag @ 100 mls/hr IVPB ONCE ONE Rx#: [id number] Potassium Chloride 10 meq 100 In Water For Injection 1 100ml.bag @ 100 mls/hr IVPB Q1H [facility] Rx#: [id number] Potassium Chloride 10 meq 100 In Water For Injection 1 100ml.bag @ 100 mls/hr IVPB Q1H [facility] Rx#: [id number] Sodium Chloride 0.9% 1, 500 600 200 000 ml @ 50 mls/hr IV . Q20H [facility] Rx#:[id number] TPN 990 1080 360 Tobramycin Sulfate 600 mg 100 In Sodium Chloride 0.9% 100 ml @ 115 mls/hr IVPB Q48H [facility] Rx#:[id number] Intake, IV Titration 100.00 1281.989 Amount Dexmedetomidine/0.9% NaCl 100.00 249.989 (Pmx) 400 mcg In Empty Bag 1 bag @ 0.2 MCG/KG/HR 5.2 mls/hr IV .[id number] [facility] Rx#:[id number] Mvi, Adult No.4 with Vit 1032 K 10 ml Trace (Conc-1Ml/ Dose) 1 ml Parenteral Electrolytes 20 ml Sodium Acetate 16 meq Potassium Chloride 10 meq Magnesium Sulfate gm 0.5 gm Sodium Phosphate 12 mmol In Amino Acids 5 %/ Dextrose 20 % 1,000 ml @ 90 mls/hr IV .BY DURATION [facility] Rx#:[id number] Output: Chest Tube Drainage 30 30 Chest Tube Right 30 30 Drainage 80 80 Medial Abdomen 0 0 Right Abdomen 50 80 Right Upper Posterior 30 Chest Urine 1525 1255 350 Other: Voiding Method Indwelling Catheter Indwelling Catheter ABP, PAP, CO, CI - Last Documented Arterial Blood Pressure 173/76 - Labs CBC & Chem 7: 01/22/24 05:32 01/22/24 15:25 Labs: Abnormal Lab Results - Last 24 Hours (Table) 01/21/24 01/21/24 01/21/24 Range/Units 12:01 17:55 23:24 WBC (3.8-10.6) k/uL RBC (4.30-5.90) m/uL Hgb (13.0-17.5) gm/dL Hct (39.0-53.0) % RDW (11.5-15.5) % Sodium (137-145) mmol/L BUN (9-20) mg/dL Creatinine (0.66-1.25) mg/dL Glucose (74-99) mg/dL POC Glucose (mg/dL) 198 H 165 H 169 H (70-110) mg/dL Calcium (8.4-10.2) mg/dL Alkaline Phosphatase (38-126) U/L Albumin (3.5-5.0) g/dL 01/22/24 01/22/24 01/22/24 Range/Units 05:32 05:32 05:49 WBC 14.9 H (3.8-10.6) k/uL RBC 2.68 L (4.30-5.90) m/uL Hgb 7.9 L (13.0-17.5) gm/dL Hct 24.6 L (39.0-53.0) % RDW 17.1 H (11.5-15.5) % Sodium 130 L (137-145) mmol/L BUN 25 H (9-20) mg/dL Creatinine 0.64 L (0.66-1.25) mg/dL Glucose 150 H (74-99) mg/dL POC Glucose (mg/dL) 174 H (70-110) mg/dL Calcium 7.3 L (8.4-10.2) mg/dL Alkaline Phosphatase 184 H (38-126) U/L Albumin 2.3 L (3.5-5.0) g/dL Assessment and Plan Assessment: 1. 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 Status post J-tube placement and revision for small bowel obstruction 2. Abdominal wound dehiscence status post wound VAC placement 3. Status post tracheostomy PLAN: -Due to leaking around J-tube site, will not start tube feeds at this time -Awaiting insurance authorization for transfer to select specialty -Continue TPN for nutrition support Time with Patient: Less than 30
[2024-01-22 11:40] LABS: Glucose,Whole Blood 180 mg/dL (70-110)
--- NOTE | 2024-01-22 11:49 | P.PN ---
Subjective Progress Note Date: 01/22/24 Principal diagnosis: Abdominal pain. This is a 73-year-old white male with history of chronic abdominal pain for the last 8 months has been treated with Protonix 40 mg daily for the last 3 months with no improvement. Patient had a 22 pound weight loss in the last [address] of the abdomen and pelvis 3 weeks ago showed thickening of the antral wall with pathological adenopathy posterior to the stomach suspicious of neoplasm. Today the patient underwent elective upper endoscopy to evaluate further, patient received IV sedation by anesthesia endoscope was inserted into the mouth, esophagus was intubated without any difficulty there was evidence of large amount of liquid and solid food noted in the stomach suggestive of gastric outlet obstruction. Scope could not be advanced through the pylorus, however in the prepyloric area there was a large superficial ulceration identified with multiple biopsies were done from this area. The body cardia and fundus could not adequately visualize because of large amount of retained food in the stomach. Scope was withdrawn back to the stomach and upon careful examination the mucosa of the antrum body and cardia as well as the fundus appeared normal. Procedure was being performed and biopsies were done patient threw up and subsequently became hypoxic there was clearly evidence of witnessed aspiration anesthesia intubated the patient, procedure was terminated, and the patient was transferred to the ICU, this consult was initiated. Patient is now on assist- control rate of 20 tidal volume 500 FiO2 70% PEEP of 10 ABG is pending, earlier ABG showed profound hypoxia patient is on propofol at 50 mcg/kg/min, next ABG is pending. Chest x-ray showed chronic changes without evidence of acute pulmonary disease. Patient was seen and examined today on 11/13/2023, remains in the ICU, intubated mechanically ventilated, on assist-control rate of 20 tidal volume 500 FiO2 50% and PEEP of 10 ABG showed a pO2 of 143 pCO2 47 pH of 7.28 hence PEEP was cut down to 6, and increased rate to 22. Patient is still requiring IV fluid at 100 cc/h/LR. Requiring norepinephrine at 0.08 mcg/kg/min he is also on propofol at 50 mg/kg/min antibiotics arce patient is receiving Zosyn. Chest x-ray is showing worsening infiltrates specially in the left lung. This could be related to aspiration pneumonia. Patient had witnessed aspiration during endoscopy/upper endoscopy.WBC count is 14 hemoglobin 7.6 basic metabolic profile is normal BUN is 26 creatinine 1.57 obviously the patient sustained some acute kidney injury baseline creatinine 0.86 patient had received fluids over the last 24 hours, remains on fluids at 100 cc/h Patient with seen and examined today on 11/14/2023, patient remains in the ICU, intubated and mechanically ventilated. Failed weaning trial yesterday and he became quite agitated and desaturated once he went off propofol. Had to be placed back on assist-control mode of mechanical ventilation and sedation. Today the patient is on assist-control rate of 22 tidal volume 500 FiO2 50% PEEP of 6. ABG showed a pO2 of 123 pCO2 51 pH of 7.32, and I cut down his FiO2 down to 45%, patient is receiving a unit of packed RBCs for hemoglobin of 6.9 today. Patient had an episode of A-fib RVR at 3 AM in the morning, seen by cardiology, and recommended patient goes on amiodarone. Still requiring norepinephrine at 0.05 mg/kg/min, he is on LR at 100 cc/h propofol at 50 mg/kg/min. Remains empirically on Zosyn for aspiration pneumonia. My plan today is transitioning the patient to Precedex, hopefully discontinue propofol, and at least give the patient a decent weaning trial or at least check weaning parameters before we proceed to weaning trial. Chest x-ray continues to show evidence of pneumonia mostly in the left lung and left lower lobe more specifically. Some pulmonary vascular congestion is noted with interstitial edema, small pleural effusion is also noted/left side. WBC count today is 12 hemoglobin 6.9 basic metabolic profile is normal bicarb is 25, BUN is 25 creatinine is improving down to 1.21 from 1.57 yesterday Patient was evaluated today on 11/15/2023, patient remains in the ICU, he was extubated yesterday, and his extubation was relatively uneventful. However the patient continues to have nasogastric tube in place, his pathology report came back showing non-Hodgkin's lymphoma, patient has gastric outlet obstruction, and the recommendation by GI is to consult surgery for a jejunostomy tube which is appropriate. Patient will be seen today by oncology and [facility] In the meantime patient is comfortable, he is on 5 L nasal cannula he has LR running at 100 cc/h, he is remains on Zosyn for aspiration pneumonia remains on amiodarone which was started by cardiology for atrial fibrillation with RVR, presently in sinus rhythm. Cannot switch him to oral because of the fact that remains n.p.o., patient remains on TPN. WBC count is 10.7 hemoglobin 7.5 electrolytes are normal renal profile is normal, creatinine normalized to 0.96 Patient was evaluated today on 11/16/2023, remains in the ICU, on 5 L nasal cannula remains on amiodarone at 0.5 mg/min remains on LR at 100 cc/h, however his chest x-ray is showing some component of interstitial edema or could be findings related to his recent episode of aspiration/aspiration pneumonia, nonetheless the patient seems to be a bit symptomatic, he has intermittent cough and wheezing, I am recommending Lasix 40 mg IV push, cut down his IV fluid to 50 cc/h, continue Zosyn, patient will be placed on DuoNeb updrafts and on Solu- Medrol. Patient is scheduled to have jejunostomy-tube placement today. WBC count is 13 hemoglobin 7.7 basic metabolic profile is normal and renal profile is normal Patient was evaluated today on 11/17/2023, patient underwent uneventful placement of a jejunostomy tube yesterday, in the ICU on 5 L, patient is relatively stable, not in any distress, patient continues to have nasogastric tube in place although he did have a J-tube placed yesterday. Patient was seen by oncology for his non-Hodgkin's lymphoma involving the gastric outlet. Today's x-ray showed evidence of pneumonia/bilateral interstitial infiltrate/edema patient was given a dose of Lasix, I reminded the patient had an aspiration episode which was significant. And he required intubation mechanical ventilation for a few days.WBC count today is 9.1 hemoglobin 7.9 electrolytes are normal renal profile is normal hence I plan to transfer the patient out of the ICU to a cardiac floor. And hopefully discharge planning in the next 2 days for The patient was seen today November 18, 2023 in follow-up in the intensive care unit. He is currently sitting up in bed. Awake and alert in no acute distress. He is maintaining O2 saturations in the 90s on 5 L/min per nasal cannula. Glucose 177. Remains on DuoNeb inhalations and Solu-Medrol. Antibiotics in the form of Zosyn. He has a J-tube in place. He was initiated on vital AF 1.2 at 10 mL an hour with a goal of 82 mL/h The patient is seen today November 19, 2023 in follow-up in the intensive care unit. He is a regular medical floor overflow patient. He is currently sitting up in a chair. Awake and alert in no acute distress. He is maintaining O2 saturations in the 90s on 5 L/min per nasal cannula. No IV fluids. He denies any worsening shortness of breath, cough or congestion. He is having some issues with diarrhea. He remains on Zosyn. He is receiving vital AF at 55 mL/h with a goal of 82 mL/h. Glucose 161. Solu-Medrol, DuoNeb inhalations. The patient is seen today November 20, 2023 in follow-up on the regular medical floor. He is currently up in a chair at the bedside. Awake and alert in no acute distress. Denies any worsening shortness of breath, cough or congestion. He is maintaining O2 saturation in the 90s on 3 L/min per nasal cannula. He continues on Zosyn. Continues on bronchodilators and steroids. White count 12.3. Hemoglobin 9.0. Platelets 258. Glucose 168. He is not tolerating his tube feeds as he has developed diarrhea. C. difficile screen was negative. Abdominal series revealed cardiomegaly with left basilar acute infiltrate and/or atelectasis. Overall nonspecific bowel gas pattern. A small bowel obstruction needs to be considered. Progress note dated November 21, 2023. The patient is seen in room 517. The patient is currently on 3 L of oxygen. He continues on Zosyn. His biggest complaint has been abdominal discomfort and diarrhea. He did have a CT scan of the abdomen and pelvis. Current laboratory data includes a white count of 14.4, hemoglobin 8.8, hematocrit 28.7, and platelet count 229,000. Sodium 139, potassium 4.1, chlorides 103, CO2 30, BUN 42, creatinine 0.94. Glucose is 158. Calcium is 8.5. Progress note dated November 22, 2023. 73-year-old male seen in room 517. He currently is on 2 L of oxygen. Room air saturation was 89%. Chest CT shows bilateral patchy infiltrates. He continues on Zosyn. He is still not taking anything by mouth. No new laboratory data today other than a glucose of 138. Gram stain was negative. Progress note dated November 23, 2023. 73-year-old male seen in room 517. He is resting comfortably without com plaints. He continues on saline at 10 cc an hour, tube feedings with Pivot at 20 cc an hour, Zosyn, and 2 L by nasal cannula. He has had an uneventful night. Laboratory data today includes a white count 14.5, hemoglobin 9.7, hematocrit 31.4, and a platelet count of 242,000. Sodium 138, potassium 3.7, chlorides 106, CO2 26, BUN 39, creatinine 0.95. Glucose is 181. Calcium is 8.5. Sputum sampling was negative. Progress note dated November 24, 2023. 73-year-old male who is seen in room 517. The patient has been having significant abdominal discomfort, and went for a evaluation, ordered by surgery today, to determine whether or not the feeding tube, was in proper position, and whether or not there is anything acutely going on in the abdomen. He had been having diarrhea. He is on 3 L of oxygen. He has been here for 12 days. This is a patient, that had a prior EGD, aspirated, because of gastric outlet obstruction, and was diagnosis of non-Hodgkin's lymphoma. He is currently on Zosyn, DuoNebs, and Solu-Medrol. He has been NPO. Chest x-ray showed a left lower lobe infiltrate. Abdominal x-ray showed multiple air-fluid levels. CT of the abdomen showed multiple dilated small bowel loops, consistent with obstruction, pneumoperitoneum, ascites, and cholelithiasis. White count was 14.1, hemoglobin 8.9, hematocrit 29.5, and platelet count was 255,000. Glucose was 143. 11/25/2023, the patient is being seen in the intensive care unit. The patient is critically ill, n.p.o., he has an NG tube in place. Following the NG tube insertion, there was a total of 2.0 L of output and the patient's J-tube was also draining approximately 200 cc over the past 8 hours. Continues to have abdominal pain which is rather diffuse and the patient has direct abdominal tenderness. CAT scan of the abdomen was noted and was consistent with small bowel obstruction. The patient has a stomach that was inflated and in the same time there were multiple loops of small bowel distended with fluid. This extended to the pelvis. J-tube with contrast nondilated small bowel loops within the mid abdomen. Additional loops of small bowel were seen that was dilated. There was some contrast in the right lower quadrant and contrast was also in the cecum. No transition point was identified. The dilated loops of the bowel appeared to be in the proximal jejunum and distal to the duodenum. General surgery is on the case the patient will be taken to the operating room for another exploratory laparotomy. Noted the CAT scan of the abdomen also showed pneumoperitoneum and small amount of ascites and cholelithiasis. Hemodynamically, the patient is currently on normal saline at rate of 75 cc an hour. He is hypotensive and is going to be started on pressors. He is on 4 L of oxygen by nasal cannula. He also has sustained acute kidney injury. Blood work from today shows a rise in the creatinine which is currently up to 2.5 with a BUN of 57. Serum bicarb is at 14 with an anion gap of 11. The patient WBC count is at 8.2 with a hemoglobin of 12.3 and a platelet count of 188. Chest x- ray from this morning is showing a right-sided port and a stable left lung airspace disease and an NG tube being in place. The patient remains on IV Zosyn. The patient is receiving Dilaudid for pain control. The patient remains on IV Solu-Medrol 60 mg every 6 hours. It was noted that the patient's surgical wound over the port has dehisced and there is some serous drainage and erythema at the incision site. Awake and alert and communicating. Family at the bedside. No apparent signs of respiratory distress at this point. 11/26/2023, the patient is being seen in follow-up. Events from yesterday was noted and the patient was taken to the operating room for exploratory laparotomy. The patient was found to have large amount of free fluid noted in the abdomen and there was significant contamination. There was perforation of the small bowel with the balloon of the previously inserted jejunostomy tube penetrating through the perforation. As such, the tube was removed, abdominal washout was done. Small bowel resection was done and the patient had a nodular jejunostomy tube inserted. Postop, the patient was extubated he was unable to tolerate extubation and the patient was kept intubated on mechanical ventilator and he was brought back to the intensive care unit. He is currently postop day #1 following his small bowel resection. Abdominal surgical wound site is dry c lean and intact. This morning, the patient remains sedated on propofol which is currently running at 35 mcg/kg/min. He is on assist-control mode of mechanical ventilation at rate of 28, tidal volume of 550, FiO2 of 60% with a PEEP of 5. Blood gas from today shows a pH of 7.35 with a pCO2 44 and pO2 of 88. Chest x- ray shows adequate positioning of the orotracheal tube. The patient has a Mediport on the right and a subclavian triple-lumen catheter on the left and the patient has persistent bilateral pleural effusion and infiltrates in lung base bilaterally. Hemodynamically, the patient remains in shock. He has been on high-dose norepinephrine which is currently running at 0.28 mcg/kg/min and the patient is also on vasopressin at 0.03 units an hour. He is IV fluids are in the form of bicarb infusion running at rate of 150 cc an hour. He is in sinus tachycardia. NG tube output has been 250 cc over the past 8 hours and the output from the J-tube is minimal at this point in time. Urine output is quite diminished as the patient has also sustained acute kidney injury. Overall fluid balance is +4.9 L over the past 24 hours. The patient's white cell count of 5.7 with a hemoglobin 9.9 and platelet count of 172. BUN is 72 with a creatinine of 2.8 and sodium levels at 143. The calcium level is at 6.5. LFTs are normal. Triglyceride level is at 315. On 11/27/2023, the patient remains critically ill. Remains intubated and on mechanical ventilator, still awaiting shock which is essentially septic shock. Remains on propofol which is running at 50 mcg/kg/min. Remains on the mechanical ventilator, assist-control mode with rate of 28, tidal volume of 550 with an FiO2 of 60% with a PEEP of 5. Blood gas shows a pH of 7.29 with a pCO2 of 47 and pO2 of 78. The patient had a follow-up chest x-ray that showed lower lobe consolidation slightly worse on the right and the orotracheal tube is in a good location. Urine output is diminished in the order of 5 to 10 cc an hour and the patient is also developing progressive worsening renal function. Remains on normal citrate of 150 cc an hour and the patient was started on TPN which is running at 30 cc an hour. He has a triple-lumen catheter in his left subclavian. Overall fluid balance over the past 24 hours is +3.9 L. Output from the NG tube and the J-tube is minimal. Hemodynamically, he is hypotensive and norepinephrine running at 0.45 mcg/kg/min. Vasopressin is a physiologic dose. He received amiodarone and he remains on maintenance amiodarone of 0.5 mg/min and the patient continues to be in atrial fibrillation and is having episodes of tachycardia. The white cell count is at 13, hemoglobin 9.4 platelet count is pending. The patient's BUN is 83 with a creatinine of 3.7. Sodium is at 140 with a potassium level of 5.5 dropped down to 4.4 as the sample was hemolyzed. LFTs are normal. Abdominal wound is dry clean and intact. RAYA drainage is essentially serous at this point in time. 11/28/2023, the patient is being seen for a follow-up. The patient remains intubated on mechanical ventilator. This morning, the patient tolerated propofol drip running at 50 mcg/kg/min. The patient is on mechanical ventilator assist-control mode with rate of 28, tidal volume of 550, FiO2 55% with a PEEP of 5. Chest x-ray shows stable findings with lower lobe consolidations bilaterally. Blood gas shows a pH of 7.32 with a pCO2 38 and pO2 90. Neuropathy has improved and the patient is producing approximately 30 cc an hour and the overall input output balance is +3.3 L over the past 24 hours. The patient is still on pressors although his pressor requirements have improved since yesterday. He is on norepinephrine which is running at 0.05 mcg/kg/min and vasopressin physiologic dose. Also, the patient on amiodarone drip regarding his chronic ongoing atrial fibrillation. Amiodarone drip is running at 0.5 mg/min. Nevertheless, the rate is under much better control. Noted the patient was given a dose of digoxin 0.5 mg IV yesterday which helped with rate control. Remains on normal citrate of 150 cc an hour. Remains on TPN at 40 cc an hour. Output from the J-tube is fecal. Output from the NG tube is more gastric. Surgical wound site is dry clean and intact. Sputum Gram stain and culture showing Pseudomonas and Citrobacter. Note that the Citrobacter was intermediate resistance to Zosyn. This will be discussed further with infectious disease. Blood cultures are still pending for now. They have negative based on the most recent check. Blood work from today shows WBC count 11.2, hemoglobin 7.9 and platelet count of 46. Sodium is at 140, potassium is at 4.3, chloride is 114 with a bicarb of 18. He has 93 and the creatinine is 4.8. Serum random vancomycin level is at 25.7. On 11/29/2023, the patient is being seen for a follow-up. Remains intubated on the mechanical ventilator. The patient sedated on propofol which is running at 35 mcg/kg/min. Synchronous with mechanical ventilator. On today's evaluation, he is on assist-control mode with rate of 28, tidal volume of 550, FiO2 55% with a PEEP of 5. Chest x-ray shows lower lobe consolidation bilaterally worse on th e right and the orotracheal tube is in good location. The blood gas showed a pH of 7.34 with a pCO2 of 35 and a pO2 of 84. No significant orotracheal secretions. Hemodynamically improved compared to yesterday. In fact, the patient is on minimal norepinephrine that was discontinued earlier this morning. The patient has converted to normal sinus rhythm. Remains on amiodarone at 0.5 mg/min. Overall fluid balance over the past 24 hours is 2.4 L positive. Urine output has been adequate and the patient is currently on IV Lasix. Nevertheless, the patient has developed progressive worsening renal function. Creatinine is up to 5.3 on today's evaluation with a potassium level of 4.4. Serum bicarb is at 18 with an anion gap of 9. WBC count is at 8.1 with a hemoglobin of 7 and a platelet count of 32 which has dropped compared to earlier evaluation. The rest of the coagulation profile was normal from 11/28/2023. Fibrinogen level is slightly elevated. Sputum samples have shown a combination of Citrobacter and Pseudomonas aeruginosa. Based on cultures and sensitivities, the patient will be taken off his IV Zosyn and he will be switched to IV meropenem. Output from the J-tube is fecal. Output from the NG tube is gastric and surgical wound site is dry clean and intact. He is afebrile for now. Hemodynamically, the patient is doing better. He remains on TPN for nutritional support. IV fluids are also running at a rate of 75 cc an hour. Remains on vancomycin. 11/30/2023, the patient is being seen for a follow-up. The patient remains on propofol at 50 mcg/kg/min. Ventilator settings are essentially unchanged. The patient remains on assist-control mode with rate of 18, tidal volume of 400, FiO2 50% with a PEEP of 5. The blood gas showed a pH of 7.37 with a pCO2 of 43 and pO2 of 127. Chest x-ray shows no significant interval change. Patient remains on normal saline at rate of 75 cc an hour and TPN at rate of 35 cc an hour. Fluid balance is positive. Hemodialysis was performed yesterday and the second session of hemodialysis to be done today. The patient's urine output is in the order of 20 to 30 cc an hour. The patient has an NG output of 350 cc for yesterday and the drainage from the J-tube is in the order of 400 cc over the past 24 hours. The blood work shows a WBC count of 10.8, hemoglobin 8.1 and platelet count of 41. Platelet counts are essentially stable and slightly improved compared to yesterday. The sodium level is at 133, potassium is at 4.3, BUN is 93 with a creatinine of 3.6. LFTs are within normal limits. Albumin is down to 2.1. The patient is currently on no pressors. Norepinephrine and vasopressin are both discontinued and the patient remains in normal sinus rhythm. No other significant events overnight. Family has been updated on his condition. Antibiotic coverage is currently with IV meropenem. Vancomycin and Zosyn have been both discontinued. On 12/01/2023, the patient remains sedated on propofol which is running at 25 mcg/kg/min., Comfortable and synchronous mechanical ventilator. The patient remains on assist-control mode rate of 28, tidal volume of 550, FiO2 40% and PEEP of 5. Blood gas shows a pH of 7.49 with a pCO2 of 34 and pO2 of 121. Patient underwent hemodialysis yesterday. No plans for hemodialysis today the patient is producing urine output. Remains on TPN for nutrition support rate of 75 cc an hour. IV fluids are currently at KVO. The chest x-ray from today shows bilateral lower lobe consolidation worse on the right. No significant change in the volume status. The patient continues to have third spacing and edema in all 4 extremities. Nevertheless, urine output is adequate at this point in time and the patient remains on Lasix 80 mg IV every 12 hours. Remains NPO. NG tube and J-tube are both drainage. Output is noted. Remains on IV meropenem. Afebrile. Currently on no pressors. Blood work shows a WBC count of 11.4, hemoglobin of 8.1 and platelet count of 46. Sodium is at 131, potassium level is at 3.7, chloride 101 and bicarb is at 24. BUN is 84 with a creatinine of 3.6. Glucose of 228. LFTs are within normal limits. Patient was reevaluated today on 12/02/23, patient remains in the ICU, patient is familiar to my service, I saw this patient 3 weeks ago. Since then he had a very complicated hospital course, related to his jejunostomy tube dislodging and leaking and picture of abdominal sepsis and worsening pneumonia/ARDS. Patient had to be placed back on mechanical ventilation, and he is now intubated and mechanically ventilated. He is on assist-control rate of 20 tidal volume 550 FiO2 40% PEEP of 5 ABG showed a pO2 of 111 pCO2 38 pH of 7.43 and I cut down his FiO2 to 35% and increase his flow rate from 60-70. Patient remains on TPN at 75 cc/h he is on propofol at 25 mcg/kg/min patient is on Cleviprex which I added today for elevated blood pressure. Receiving Lasix 80 mg every 12 hours is also on Merrem as per infectious disease. Patient is on hemodialysis and being followed by nephrology. Patient required multiple abdominal surgeries since his initial admission. Chest x-ray continues to show worsening pneumonia involving both lungs, right more so than left, I suspect there may be a component of ARDS. His initial presentation was the presentation of aspiration pneumonia to begin with and that was 3 weeks agoWBC count is 10.3 hemoglobin 8.6 sodium 131 potassium 4 chloride 100 bicarb 23 BUN is 111 creatinine 4.02 blood sugar is 248. Albumin is 1.9 Patient was evaluated today on , patient remains in the ICU, intubated and mechanically ventilated. Patient is on assist-control rate of 20 tidal volume 550 FiO2 35% and PEEP of 5 ABG showed a pO2 of 99 pCO2 39 pH of 7.44 patient is undergoing hemodialysis today, and the plan is to remove 2 L. He is remains on propofol at 35 mcg/kg/min, remains on TPN at 75 cc/h. Remains on Merrem. Patient is not requiring any pressors today. Yesterday patient did not tolerate to be off sedation long enough, and today we tried the same sedation interruption, and the patient did not do well post interruption of sedation, became extremely agitated restless, tachycardic, and could not fully assess mental status off sedation. Hence the patient was placed back on AC mode of mechanical ventilation, and the plan is to continue the same supportive care measures. Family updated on his condition and most likely the patient will end up requiring tracheostomy in the next few days.WBC count is 8.5 hemoglobin 8.2 basic metabolic profile is relatively unremarkable BUN is 89 creatinine 3.45 chest x-ray today showed stable chest, suspect some right-sided pleural effusion which would likely improve with hemodialysis/ultrafiltration. X-ray of abdomen showed nonspecific nonobstructive bowel gas pattern Patient was seen today on 12/04/2023, remains in the ICU, intubated mechanically ventilated, on assist-control rate of 20 tidal volume 550 FiO2 35% PEEP of 5 ABG showed a pO2 of 112 pCO2 38 pH of 7.45, hence no changes were made in ventilator settings. Patient is on propofol at 35 mcg/kg/min he is also on IV fluid at KVO TPN at 75 cc/h. Remains on hemodialysis remains on Lasix 80 mg IV push twice daily, remains on Merrem. This x-ray continues to show the same findi ngs/airspace disease in both lungs, not much of a change in the last 2 days, however his oxygenation seems to be improved. WBC count is 7.1 hemoglobin 7.7. Electrolytes are normal, BUN is elevated 77 creatinine 3.32, patient is on hemodialysis. His condition was discussed today with the at bedside, and I do not believe the patient is ready to be weaned or extubated, however he seems to get extremely agitated when he goes off propofol, today I plan to transition propofol to Precedex, give him a trial on Precedex and determine whether the patient becomes more appropriate and at least ready for any weaning trials. Clinically I doubt if this will happen but we will go ahead and try Patient was evaluated today on 12/05/2023, remains in the ICU, intubated mechanically ventilated, not much of a change noted in the last 24 hours. Remains on assist-control of 20 tidal volume 550 FiO2 35% PEEP of 5 ABG showed a pO2 of 90 pCO2 37 pH of 7.48 hence chose not to change any of his ventilator settings. Yesterday the patient failed again trial of weaning, and he was never anywhere near ready to be weaned in spite of placing him on Precedex and off propofol, at 1 point the patient became extremely agitated restless and he was biting on the endotracheal tube could not fully awake the patient and determine improvement in his mental status. Hence patient was placed back on propofol yesterday and he remains on propofol today. He is on propofol at 25 mcg/kg/min he is on TPN at 75 cc/h surgery is considering starting his J-tube feedings today. Remains on hemodialysis remains on Merrem remains on Lasix 80 mg IV push twice daily overall not much of a change his chest x-ray is basically about the same showing bibasilar airspace disease. Today I had a discussion with the regarding the option of tracheostomy extremely reluctant to have it done yet. Said that the patient had multiple complications with previous surgeries and she is afraid that he is going to have another complication with the surgeryWBC count is 10.2 hemoglobin is 8, basic metabolic profile is normal sodium 130 BUN 70 creatinine 2.89 Patient was seen today on 12/06/23, remains in the ICU, intubated mechanically ventilated, his ventilator settings are assist-control rate 20 tidal volume 550 FiO2 35% and PEEP of 5 ABG showed a pO2 of 103 pCO2 36 pH of 7.47 patient opens eyes but does not follow any other instructions. He is now off propofol for the last 24 hours, he is maintained on Precedex at 0.4, TPN at 75 cc/h vital AF at 5 mL/h. Patient remains on Merrem, patient did not receive dialysis today because issues related to occluded dialysis catheter. Nonetheless the patient is making urine, and continues to improve with diuretics. Chest x-ray continues to show bibasilar airspace disease, not much of a change control manager the last 1 week.WBC count today is 11.8 hemoglobin is 7.9.Basic metabolic profile is normal BUN is 92 creatinine 3.74. Blood sugar is 226. Family is at bedside, considering his overall mental status at this point, not quite ready to start checking weaning parameters, and is not ready for weaning. Nonetheless I plan to keep him on Precedex, and hopefully avoid narcotics and other sedatives. His mentation starts clearing a bit more, then will start trials of weaning parameters and/or weaning trials Patient was seen today on 12/07/2023, remains in the ICU, intubated and mechanically ventilated, on assist-control rate of 20 tidal volume 550 FiO2 35% PEEP of 5 ABG showed a pO2 of 83 pCO2 33 pH of 7.50 hence the tidal volume was cut down to 500. Patient remains off propofol remains off narcotics is only on Precedex for sedation at 0.6 mg/kg/h. He is on norepinephrine at 0.02 TPN at 75 cc/h IV fluid at KVO vital AF at 10 mL/h is also on Merrem. Neurologically I am concerned about this patient neurological status, does not seem to be waking up much, he opens his eyes but does not follow any instructions and spite of sedation hold for quite some time. Hence I am recommending a CT of the brain and multiple recommending a neurological consultation on this patient. WBC count is 18 7 hemoglobin is 8.4, basic metabolic profile is normal BUN is 75 creatinine 2.95, patient is back on dialysis, he had a new hemodialysis catheter placed yesterday by vascular surgery, and he will be restarted back on hemodialysis. CT of the brain done shortly after evaluating the patient showed no acute intracranial process chest x-ray basically about the same, continues to show small left and moderate right basilar infiltrate. Has not changed much over the last 1 week, patient remains on antibiotics. Patient was seen today on 12/08/2023, remains in the ICU, intubated and mechanically ventilated, remains on assist-control rate of 20 tidal volume 500 FiO2 35% PEEP of 5 ABG showed a pO2 of 88 pCO2 37 pH of 7.47 hence no changes were made in ventilator settings. Chest x-ray is showing slight increase in his right-sided pleural effusion, however his oxygenation seems to be about the same, and the patient is responding to Lasix given at 80 mg IV push every 12 hours, he is also doing well with hemodialysis he had 2 L removed yesterday and 2 L the day before. Hence will not recommend thoracentesis at this point. But the pleural effusion will need to be closely monitored. Patient remains off propofol he is on Precedex at 0.6 mcg/kg/h. For the last 2 days, and his mentation is not much different from baseline. Continues to open his eyes and does not follow any other instructions has the patient is clearly not ready for weaning trials or extubation. Brought up the issue of tracheostomy again with the , she is still reluctant to proceed with tracheostomy on him at this point. Patient remains on Merrem, remains on TPN but his enteral feeding will be advanced today to full goal, and if that happens then we will can discontinue TPN. Patient is receiving vital AF 1.2@10 mL/h at this point.WBC count is 19.3 hemoglobin 7.6. Basic metabolic profile is normal BUN is 72 creatinine 2.99 blood sugar ranging between 250 up to 334. 12/09/23 - patient seen at bedside today, remaining in the ICU, intubated and mechanically ventilated, remaining on assist-control rate of 20, tidal volume 500, FiO2 30%, PEEP of 5 and oxygen saturation of 100%. Patient is on day 27 of his hospital stay (admitted 11/11), day 15 of this current ICU stay (readmit to the ICU 11/24) and day 15 of this current period of time on the ventilator (placed 11/24). ABG showed pO2 100, pCO2 36, pH 7.47. Chest x-ray was deemed to be stable, however possibly with slight improvement noted on the left with a right-sided pleural effusion remains evident however the patient's oxygenation remains to be about the same. Continue to receive 80 mg IV Lasix every 12 hours and is receiving daily hemodialysis, in which he has been having 2 L removed the past couple of days, hemodialysis yet to occur today. His creatinine is 3.57 (compared to 2.99 yesterday) and BUN 98 (compared to 72 yesterday). Due to this response to diuresis and hemodialysis, no thoracentesis recommended at this point however pleural effusion will need to continue to be monitored. Patient shon off propofol, he is on Precedex at 0.4 mcg/kg/h. Due to his mentation remaining near baseline, neurology had been consulted who ordered an EEG which showed diffuse background slowing of his severe degree which is suggestive for generalized cerebral dysfunction and can be seen with toxic metabolic encephalopathy, as well as the presence of sporadic intermittent, some higher amplitude, sharply contoured waves of generalized distribution. Because of this per neurology's recommendation, patient started on Keppra 500 mg twice daily. The patient does seem to be having some improved mentation, with opening his eyes and responding to commands some of this morning. Spontaneous breathing trial to be attempted today, to see if the patient will be able to come off of mechanical ventilation. If that is unable to occur, discussed with the patient as well as his and one of his daughters that a tracheostomy would be the most appropriate next course of action due to the potential dangers of sustained endotracheal intubation for prolonged period of time. The , while reluctant, seem to acknowledge that this is the appropriate course of action. He remains receiving meropenem 1 g nightly. He remains on TPN 75 mL/h, which she has been on since 11/21 (18), but his enteral feeding has been vital 1.2 AF at 10 mL/h with a goal rate of 80 mL/h. Patient drained 60 mg of serosanguineous fluid from his RAYA. His WBCs increased to 21.5 (compared to 19.3 yesterday), hemoglobin dropped to 7.2 (compared to 7.6 yesterday), hematocrit dropped to 22.0 (compared to 22.9 yesterday) and patient procalcitonin remains elevated at 3.07. 12/10/23 - Patient seen at bedside today, remaining in the ICU, intubated and mechanically ventilated, remaining on assist-control rate of 20, tidal volume 500, FiO2 30%, PEEP of 5 and oxygen saturation of 100%. Patient is on day 28 of his hospital stay (admitted 11/11), day 16 of this current ICU stay (readmit to the ICU 11/24) and day 16 of this current period of time on the ventilator (placed 11/24). ABG showed pO2 93, pCO2 37, pH 7.47, showing evidence of a mild metabolic alkalosis. Chest x-ray today showed stable disease compared to yesterday. He received levo overnight due to atypical blood pressure, patient's TPN was up to 120 due to the change in formula. Patient is scheduled to undergo tracheotomy today (12/09) at 16:30. Per the nurse and the overnight staff patient continues to open his eyes and shows some responsiveness to commands. Per nephrology's recommendation dialysis to be held today due to the patient going for the tracheotomy later, as well as the dip in blood pressure seen after yesterday's dialysis session which required Levophed. Patient's Hgb this morning 6.6, will be given 1 unit today, which will be the second unit he has received during his hospital course. Patient's airway resistance noted to be 3.3 cm/L/s, static lung compliance shown to be 45 mL/cm H2O and dynamic compliance 33 mL/cm H2O. 12/11/23 - Patient seen at the bedside, remaining in the ICU, with a tracheotomy tube and mechanically ventilated while receiving dialysis. Patient remains on assist-control rate of 20, FiO2 30%, PEEP of 5 and has an oxygen saturation of 97%. Patient is on day 29 of the hospital stay (admitted 11/11), day 17 of his current ICU stay (readmitted to the ICU 11/24) and day 17 of his current period of time on the ventilator (placed 11/24). ABG today showed pO2 115, pCO2 38, pH 7.44 continuing to show evidence of a mild metabolic alkalosis. Chest x-ray today showed stable disease. Patient had tracheotomy placed yesterday afternoon (12/09) without any complications. Patient has had 3 consecutive days of attempting spontaneous breathing trials in an effort to wean the patient off the ventilator, all of which failed to this point. Beginning today the patient's antibiotics (meropenem) will be discontinued and we will begin weaning his propofol down from 25 mcg/kg/min. As the patient is weaned off of the propofol, 0.5 Dilaudid and 1 mg IV Ativan to be used every 6 hours as needed. Patient is continuing to receive normal saline 20 cc/h, and has a total of 200 mL of serosanguineous fluid from his RAYA drain. TPN to continue at a rate of 120 mL/h additionally tube feeds, which had been held due to the patient receiving s traight catheter yesterday, will be restarted today with an ultimate goal being to receive enteral nutrition at a rate of 80 mL/h. TPN to continue until able to increase the enteral nutrition to at least 50 mL/h, as per the dietitian's recommendation. Will be exploring the possibility of the patient being moved to select specialty. 12/12/23 - Patient seen at the bedside this morning, in ICU room 253, while receiving and EEG, no significant events overnight. Patient remains with tracheotomy and is mechanically ventilated on assist control with a rate of 20, tidal volume 500, FiO2 30%, PEEP of 5 with an oxygen saturation of 98%. Patient is on day 30 of the hospital stay (admitted 11/11), day 18 of his current ICU stay (readmitted to the ICU 11/24) and day 18 of his current period of time with mechanical ventilation (placed in 11/24). ABG today showed pO2 92, pCO2 36, pH is 7.49 continue to show signs of a combined respiratory and metabolic alkalosis. WBC 17.9, Hgb 7.4, Hct 22.6, PLT 151; sodium 133, potassium 4.0, HCO3 27, BUN 88, creatinine 2.96. Chest x-ray done today continuing to show patchy infiltrate throughout the right lung with layering effusion. Patient is continuing to receive normal saline 20 cc/h, continues to receive Dilaudid 0.5 mg IV push every 6 hours as needed, as well as Ativan 1 mg IV every 6 hours as needed. Patient is no longer maintained on propofol. TPN continues at a rate of 120 mm/h and EN vital AF at 30 mL/h with a goal of 40 mL/h. Once goal is reached, TPN can be discontinued and patient will be switched over to Nepro 50 mL/h. Following the patient having 3 consecutive days of attending spontaneous breathing trials and effort to wean, we will begin trying the patient with CPAP and pressure support in effort to wean, today's trial the patient will be placed on PS 5 and PEEP of 5 for 25-45 minutes, or as he is able to tolerate it. Disc ussed with the patient's the importance of continuing to wean the patient's with trials, in an effort to build up some of the strength in his lungs to better be able to tolerate breathing on his own. Will continue to evaluate for possible placement in a long-term acute care facility. 12/13/23 - Patient seen at the bedside this morning, in ICU room 253, with no significant events overnight noted. Patient remains with tracheotomy and is mechanically ventilated on assist control with a rate of 20, tidal volume 500, FiO2 30%, PEEP of 5 with an oxygen saturation of 98%. Patient is on day 30 one of the hospital stay (admitted to 11/11), day 19 of his current ICU stay (readmitted to the ICU 11/24) and day 19 of his current period of time with mechanical ventilation (placed 11/24). ABG today showed pO2 87, pCO2 36, pH 7.48 continue to show signs of a combined respiratory metabolic alkalosis. WBC 17.3, Hgb 8.0, Hct 25.3, PLT 191; sodium 136, potassium 4.1, BUN 116, creatinine 3.17. This x-ray done today continues to show stable disease. Patient had an EEG completed yesterday (12/11) which showed an abnormal EEG, study being limited because of diffuse myogenic artifact. Background slowing suggestive of severe encephalopathy. Otherwise no appreciable epileptiform discharges, focal slowing, or seizure noted during the exam. Patient continues to receive Dilaudid 0.5 mg IV push every 6 hours as needed, as well as Ativan 1 mg IV every 6 hours as needed. Patient's TPN has been stopped, he is not receiving Nepro at 50 mL/h, which is goal. Patient Solu-Medrol has been discontinued, patient now receiving 30 mg prednisone daily. Patient's trial yesterday with CPAP and pressure support with the patient was sent PS of 5 and PEEP of 5, patient tolerated 40 minutes well it was noted that his respiratory rate increased and his minute ventilation also increased during this time. Will continue with another weaning effort today and continue to reassess how the patient tolerates. He will be receiving hemodialysis today, with the plan to hold over the weekend and then reassess Saturday per nephrology. Additionally IV Lasix has been discontinued on this patient, nephrology did state that he may need to resume receiving the Lasix if the urine output tapers. Progress note dated December 14, 2023. The patient is seen today in room 253. The patient remains on the mechanical v entilator. His settings include volume assist-control, rate 20, tidal volume 500, FiO2 30%, PEEP of 5. Blood gases show pO2 of 76, pCO2 of 36, pH of 7.47. The patient is getting saline at 10 cc an hour, and Nepro at 50 cc an hour which is goal. The patient will go back on pressor support of 5 and CPAP of 5 today. Yesterday, he spent 2-1/2 hours on pressure support. The patient did have a tem perature last night. He discussed some purulent drainage at the wound site. I have asked surgeon to come back and see the patient. In addition, the nurse will get blood, urine, sputum, and wound cultures going. He is not on any antibiotics. We will check a procalcitonin level. White count of 16.7, hemoglobin 8.1, hematocrit 24.5, platelet count is normal. Sodium 135, potassium 3.9, chlorides 103, CO2 24, BUN 106, creatinine 3.04. Calcium is 7.1. Magnesium is 2.0. Urine is yellow, with 1+ protein, 6 WBCs, and rare bacteria. Chest x-ray shows a stable chest x-ray, which is largely unchanged. Progress note dated December 15, 2023. 73-year-old male seen again in room 253. The patient remains on mechanical ventilator. Blood gases show pO2 of 78, pCO2 of 36, pH of 7.47. The patient is getting saline at KVO, and Nepro at 50 cc an hour which is goal. The patient did a spontaneous breathing trial yesterday, and went about 6 hours on PSV 5, CPAP of 5. The patient's procalcitonin level was elevated at 1.92. We added back Zosyn. Yesterday we did sputum, blood, urine, and wound cultures. The patient will have another spontaneous breathing trial today. Current labs include a white count 16.3, hemoglobin 7.5, hematocrit 22.6, and a normal platelet count. Sodium 138, potassium 3.5, chlorides 105, CO2 24, BUN 125, and creatinine 3.22. Glucose is 220. Calcium is 6.9. Chest x-ray shows a right- sided pleural effusion, and some similar changes, to the previous x-ray. This is a 73-year-old white male with history of chronic abdominal pain for the last 8 months has been treated with Protonix 40 mg daily for the last 3 months with no improvement. Patient had a 22 pound weight loss in the last [address] of the abdomen and pelvis 3 weeks ago showed thickening of the antral wall with pathological adenopathy posterior to the stomach suspicious of neoplasm. Today the patient underwent elective upper endoscopy to evaluate further, patient received IV sedation by anesthesia endoscope was inserted into the mouth, esophagus was intubated without any difficulty there was evidence of large amount of liquid and solid food noted in the stomach suggestive of gastric out let obstruction. Scope could not be advanced through the pylorus, however in the prepyloric area there was a large superficial ulceration identified with multiple biopsies were done from this area. The body cardia and fundus could not adequately visualize because of large amount of retained food in the stomach. Scope was withdrawn back to the stomach and upon careful examination the mucosa of the antrum body and cardia as well as the fundus appeared normal. Procedure was being performed and biopsies were done patient threw up and subsequently became hypoxic there was clearly evidence of witnessed aspiration anesthesia intubated the patient, procedure was terminated, and the patient was transferred to the ICU, this consult was initiated. Patient is now on assist- control rate of 20 tidal volume 500 FiO2 70% PEEP of 10 ABG is pending, earlier ABG showed profound hypoxia patient is on propofol at 50 mcg/kg/min, next ABG is pending. Chest x-ray showed chronic changes without evidence of acute pulmonary disease. 12/20/2023, the patient is being seen for a follow-up. More alert and awake compared to yesterday. He is able to move his fingers and toes on today's evaluation. Following commands. Nevertheless, his J tube has been clogged and was unable to utilize the tube that has been some leaks around the tube. No abdominal distention. No nausea or emesis. Hemodynamically stable. Will undergo hemodialysis today. He remains on pressure control mode of mechanical ventilation at rate of 16, pressure of 10, +5 PEEP with an FiO2 of 30%. Chest x-ray from today is essentially unchanged with a stable cavity in his right upper lobe. White cell count of 15.7, hemoglobin 7.2, platelet count is 203, blood gas showed a pH of 7.49 with a pCO2 of 33 and pO2 of 73. BUN is 88 with a creatinine 1.89 and sodium is at 141 with a potassium level of 4.1. He is producing adequate amount of urine output. Fluid balance has been -900 cc over the past 24 hours. Normotensive. Remains on a combination of Zosyn and daptomycin. Remains on Levemir insulin 24 units daily. This is currently on hold as the patient has not been able to obtain enteral feeding. Wound VAC still in place. 12/21/2023, the patient remains on the mechanical ventilator. Overnight, the patient experienced discomfort in his abdomen and he was restless. Based on that, the patient was placed on a higher dose of Precedex which is currently running at 0.6 mcg/kg/h. The patient was also asynchronous with the mechanical ventilator and based on that, the patient was switched to an AC mode and currently is at a rate of 16, tidal volume of 400, FiO2 of 30% with a PEEP of 5. The patient is adequately sedated for now. Chest x-ray remains unchanged. Tracheostomy tube in place and the patient is having increased amount of respiratory secretions. J tube needs to be replaced today and this will be done by his general surgery as the tube remains clogged. Urine output is low order of 30 cc an hour. Afebrile. Remains on Zosyn and daptomycin. White cell count is 16.9, hemoglobin 7.4 and a platelet count of 280. Blood gas from today showed a pH of 7.46 with a pCO2 of 36 and pO2 of 82. Sodium levels of 144, BUN is 19 with a creatinine of 2.2 and a serum bicarb is at 23. The abdominal wound remains unchanged. RAYA drain is serosanguineous. 12/22/2023, patient remains on Precedex at 0.4 mcg/kg/min. Arousable. Communicates. Profoundly weak. Remains on the mechanical ventilator with a rig ht lung abscess. SIMV mode mode rate of 16, tidal volume of 400, FiO2 30% with a PEEP of 5, with a pressure support of 8. Blood gas showed a pH of 7.46 with a pCO2 of 32 and a pO2 of 82. Chest x-ray remains unchanged with a right upper lobe cavitating lesion/opacity and a suspected lung abscess. This is rated Pseudomonas and the patient remains on IV Zosyn. He remains on daptomycin. Urine output is in order of 50 cc an hour.. The J-tube was unplugged yesterday. Nevertheless, the tube itself is malfunctioning and there is drainage around the tube requiring dressing changes the dressings being soakedConstantly. The patient's white cell count is 12.3 with a hemoglobin 7.7. Sodium is at 149, BUN 91 with a creatinine of 2.3. Bicarb is at 20. Undergoing hemodialysis periodically. Last hemodialysis was on 12/21/2023. Currently NPO. Abdominal wound is clean and the patient has a wound VAC in place. RAYA drain output is serosanguineous. Patient was seen today on 12/23/2023, remains in the ICU, intubated and mechanically ventilated. Patient is on IMV with pressure support/IMV 16, pressure support of 8, tidal volume 400, PEEP of 5. Patient seems to be doing well with that kind of mode of mechanical ventilation, ABG showed a pO2 of 76 pCO2 28 pH of 7.50. I changed his rate from 16-8 kept him otherwise on the same ventilator settings. Plan to gradually go down on the IMV rate until we can get him on pressure support of 8 and CPAP. Patient is requiring Precedex at 0.4 m cg/kg/h, he is on D5W at 50 cc/h. Remains on antibiotics in the form of daptomycin and Zosyn, chest x-ray continues to show bilateral airspace disease and right upper lobe lung abscess. Continues to have a bit of a leak from his J-tube being addressed by surgery has a wound VAC, and he had a RAYA drain. Mentation arce the patient is a bit more appropriate, opens his eyes, follows very simple instructions, seems to comprehend. Patient has a left brachial PICC line, he also has a left groin hemodialysis catheter. WBC count is 10.1 hemoglobin is 7 sodium is 149 potassium 4 chloride is 121 BUN is 86 creatinine 2.31. Blood sugar is 173. Remains on enteral feeding via J-tube, a bit of a leak is noted, and surgery is to address this. Sputum cultures have grown Klebsiella and Pseudomonas and remains on proper antibiotics Patient was seen and examined today on 12/24/2023, patient remains in the ICU, and mechanically ventilated. On IMV mode of 8 pressure support of 8 tidal volume 400 FiO2 30% and PEEP of 5 ABG showed a pO2 of 81 pCO2 32 pH of 7.45. Patient remains on daptomycin and Zosyn, remains on Precedex at 0.4 mcg/kg/h intermittently receiving Dilaudid for pain. Feeding arce is presently on hold, patient had a leak around the jejunostomy tube, surgery is recommending a trick le feed or TPN if could not use the J-tube. Patient is arousable follows simple instructions, and today I had a chance to get rid of the IMV mode, and I am recommending a pressure support of 8 and CPAP. For the last few hours the patient has been tolerating this mode of mechanical ventilation, however he is not quite ready to go to [facility] at this point. Chest x-ray continues to show significant opacity in the right upper lobe and airspace disease in the right lower lobe. Previously patient had a CT of the chest showing right upper lobe abscess. Again he remains on Zosyn and daptomycin.Labs today showed WBC count of 10.6 hemoglobin 7.8 sodium is 147, patient is now on D5W at 100 cc an hour his bicarb is 19 BUN 74 creatinine 2.08, gradually improving, his last hemodialysis was on the , nephrology is considering removing his dialysis catheter in the left groin and I believe that is appropriate patient was seen and examined today on 12/25/2023, remains in the ICU, intubated and mechanically ventilated. Patient had to be placed back on assist-control mode of mechanical ventilation yesterday, mostly because he developed significant agitation and restlessness, and ongoing persistent cough with some air leak from the cough of that tracheostomy. Patient had to be sedated and he was placed on propofol and he remains on propofol at 50 mcg/kg/min. Maximal dose of Precedex yesterday could not calm him down, hence we had to transition him from pressure support/CPAP mode of mechanical ventilation to assist-control mode of mechanical ventilation and fully sedated him with propofol replacing Precedex. Today the patient is sedated, he is on assist-control rate of 16 ti sierra volume 400 FiO2 30% PEEP of 5 ABG showed a pO2 of 98 pCO2 30 pH of 7.45 chest x-ray is basically the same showing significant airspace disease in the right upper lobe and right lower lobe. Remains on daptomycin and Zosyn. His IV fluid was transitioned to D5 4 5 from D5W sodium today is 141. His urine output is about 40 to 50 cc/h, renal profile is improving with steady trending of creatinine down. Patient continues to have leakage around the jejunostomy tube. Patient is being followed by surgery no specific recommendation made except to continue the same and except the leak as it isLabs today showed WBC count of 11.5 hemoglobin 8.2 basic metabolic profile is normal BUN is 60 creatinine down to 1.81 Patient seen today on 12/26/2023, remains in the ICU intubated mechanically ventilated sedated patient is on assist-control rate of 16 tidal volume 400 FiO2 30% PEEP of 5 ABG showed a pO2 of 82 pCO2 34 pH of 7.43. Patient is now on TPN at 30 cc/h propofol at 50 mcg/kg/min hemoglobin is down to 6.8 today and he is receiving a unit of packed RBCs. His IV fluids at 50 cc/h in the form of 0.9 normal saline. He was last night on a small dose of norepinephrine at 0.01 mcg/kg/min and is presently on hold. Antibiotics arce patient is on Zosyn daptomycin and Eraxis. Chest x-ray continues to show significant airspace disease involving the right upper lobe and right lower lobe not much of a change noted on the chest x-ray. Clinically the patient is about the same, today I plan to discontinue propofol, arrange for the patient to go on Precedex, and assess mental status off sedation. If tolerated, may transition the patient again to pressure support and CPAP type of mechanical ventilation, but he is not ready to go to that transition yet. WBC count is 11.6 hemoglobin 6.8. ABG today showed a pO2 of 82 pCO2 34 pH of 7.43 potassium is 3.3 being addressed accordingly BUN is 53 creatinine 1.84 Patient was evaluated today on 12/27/2023, remains in the ICU intubated and mechanically ventilated. Patient is presently on IMV mode of mechanical ventilation with pressure support rate of 16 pressure support 14 tidal volume 400 FiO2 30% and PEEP of 5 ABG showed a pO2 of 99 pCO2 31 pH of 7.44. Intermittently the patient has been experiencing episodes of extreme agitation and restlessness he is on Precedex at 0.5 mcg/kg/h. Patient is on IV fluid 0.9 normal saline at 50 cc/h and is also receiving TPN. Remains on Eraxis daptomycin and Zosyn patient is intermittently requiring Dilaudid, Ativan does not seem to help his agitation and restlessness. But Dilaudid does hence I would recommend 0.5 mg every 2-3 hours as needed for agitation. Patient has good urine output roughly about 100 cc/h. Continues to have leakage around the jejunostomy tube, and patient is undergoing the J-tube exchange today. Family is at bedside, seems to be quite anxious about his overall condition, and I explained to the that we are doing the best we can considering his critical illness situation and critical illness polyneuropathy. Patient is profoundly weak, and weaning the patient from mechanical ventilation is almost impossible. At least not at this point yet WBC count is 10.9 hemoglobin is 8.1 basic metabolic profile is normal BUN is 46 creatinine 1.90 patient has been off hemodialysis since the . Chest x-ray continues to show stable findings with right upper lobe opacity and right lower lobe opacity and possibly a small right-sided pleural effusion Was evaluated today on 12/28/2023, patient remains in the ICU, intubated and mechanically ventilated, on IMV mode of mechanical ventilation rate set at 16 he is on pressure support of 14 tidal volume 400 FiO2 30% and PEEP of 5 ABG showed a pO2 of 113 pCO2 31 pH of 7.43. No major events overnight, patient is still requiring Precedex at 0.7 mcg/kg/h. He is on TPN as we could not use his jejunostomy tube, no jejunostomy tube was done yesterday, IV fluid is 0.9 at 50 cc/h remains on TPN at 65 cc/h patient is on Eraxis daptomycin and Zosyn. Chest x-ray is showing improvement in his right upper lobe airspace disease/lung abscess and there is a slight improvement in his right lower lobe opacity. Kathryn ent is arousable but does not follow any instructions, patient gets agitated easily if aroused and he started gagging on the tracheostomy tube. Family is at bedside, again updated on his condition. WBC count is 7.6 hemoglobin 7.9. Basic metabolic profile is normal BUN is 45 creatinine down to 1.51 patient has not had any dialysis since 12/17, his renal functioning and urine output continues to improve, hence I am strongly recommending removing his dialysis catheter Patient was seen on 12/29/2023, remains intubated and mechanically ventilated, in the ICU, on IMV of 16 tidal volume 400 FiO2 30% PEEP of 5 ABG showed a pO2 of 105 pCO2 31 pH of 7.45. Remains on Precedex at 0.8 mcg/kg/h, remains on TPN at 65 cc/h IV fluid 0.45 at 50 mL/h remains on multiple antibiotics and antifungal including Eraxis daptomycin and Zosyn. His hemodialysis catheter has been removed, urine output has been excellent renal functioning is improving chest x- ray is showing improvement in his right upper lobe airspace disease/pulmonary abscess. Right lower lobe seems about the same with chronic opacity and possibly some small right-sided pleural effusion. Family is at bedside, patient is arousable but does not follow any instructions. Gets extremely restless and agitated easily hence patient is receiving Dilaudid which seems to be working much better for this patient than benzodiazepines. And we are trying to avoid Ativan, trying to avoid any propofol as much as possible. I believe his drainage from the jejunostomy tube is becoming less and less, hence we could start considering early next week arrangement to possibly transfer the patient to a select care specialty. In the meantime I am recommending that we go down on the IMV rate by 2 every 2 hours the goal is pressure support of 14 and IMV of 8. Progress note dated December 30, 2023. This is a 73-year-old male who is now been in the hospital for 48 days. The patient was admitted back on November 11. Currently, he is seen in the intensive care unit, room 253. The patient is currently on synchronized IMV mode, rate of 8, pressure support of 14, PEEP of 5, FiO2 30%, and a backup tidal volume of 400 cc. Blood gases showed a pO2 of 87, pCO2 of 31, and a pH of 7.42. The patient will be switched back to the volume assist-control mode, as he is not ready to be weaned. His minute volume is nearly 18 L/min. He is breathing at a rate of about 40 times per minute. He currently is on Precedex 0.8 mics per kilogram per minute, TPN at 90 cc an hour, and half-normal saline at 50 cc an hour. The patient continues on Zerbaxa, Eraxis, and daptomycin. White count 11.5, hemoglobin 8.1, hematocrit 25, platelet count of 78,000. Sodium 142, potassium 4.2, chlorides 119, CO2 20, BUN 42, and creatinine 1.22. Glucose is 178. Albumin is 1.9. Sputum from December 24 shows evidence of Citrobacter freundii and Pseudomonas aeruginosa. Blood cultures from the same day were positive for Staphylococcus. Chest x-ray shows extensive pleural-parenchymal opacities, in both lungs, and the chest x-ray is largely unchanged from the pre vious days x-ray. Progress note dated December 31, 2023. 73-year-old male now here in the hospital for 49 days. The patient was admitted way back on November 11. He is seen today in room 253. Family members are at the bedside. The patient currently is on volume assist-control, rate 32, tidal volume 400, FiO2 30%, PEEP of 5. Blood gases show pO2 of 94, pCO2 of 35, pH is 7.40. Unfortunately, the patient is not synchronous with the ventilator, and so we switched to pressure regulated volume control or VC plus. We set an inspiratory time at 0.8 seconds, and the targeted tidal volume of 450 cc. The patient is on TPN at 70 cc an hour, saline at KVO, propofol at 40 mcg/kg/min. The patient continues on Eraxis, daptomycin, and Zerbaxa. Current labs include a white count 12.8, hemoglobin 7.3, hematocrit 22.4, and a platelet count of 67,000. Sodium 140, potassium 3.6, chlorides 119, CO2 20, BUN 43, creatinine 1.15. Glucose is 223. Calcium is 6.8. Today's chest x-ray is largely unc hanged. Progress note dated January 01, 2024. 73-year-old male seen again in room 253. The patient has not been in the hospital for 50 days. The patient continues on the mechanical ventilator. He is on pressure regulated volume control, or VC plus. His target tidal volume is 450 cc and his inspiratory time RTI is 0.8 seconds. His respiratory rate is 32. PEEP is 5, and FiO2 is 30%. Blood gases show pO2 of 98, pCO2 of 34, and a pH of 7.40. The patient continues on propofol at 15 mcg/kg/min, and TPN at 90 cc an hour. The patient also continues on Zerbaxa, daptomycin, and Eraxis. White count is 12.1, hemoglobin 7, hematocrit 22.0, and platelet count 69,000. Sodium 141, potassium 4.3, chlorides 120, CO2 19, BUN 44, creatinine 1.11. Calcium is 7. Chest x-ray shows a right-sided pleural effusion, with adjacent atelectasis and/or consolidation. There is a small left-sided pleural effusion as well. Progress note dated January 02, 2024. 73-year-old male seen again in room 253. The patient has not been here in the hospital for 51 days. He remains on mechanical ventilator. He is on the pressure regulated volume control modality no also noted his VC plus. The patient is on a rate of 32 breaths/min, PEEP of 5, FiO2 30%, inspiratory time her TI was 0.8, and a target tidal volume of 450 cc. Blood gases show pO2 of 90, pCO2 34, pH is 7.40. The patient is receiving TPN at 90 cc an hour, propofol at 20 mcg/kg/min, and has received a total of 6 units of packed red blood cells. The patient is going to get Dilaudid and Ativan scheduled. Dilaudid will be 1 mg every 2 hours, and Ativan 1 mg every 6 hours. The patient continues on daptomycin, Eraxis, and Zerbaxa. White count is 10, hemoglobin 6.5, hematocrit 20.3, platelet count 83,000. Sodium 140, potassium 4.6, ch lorides 119, CO2 20, BUN 45, creatinine 1.08. Most recent cultures are from December 24, showing evidence of Citrobacter from the and Pseudomonas aeruginosa, in the sputum. Blood cultures, on the same day, show evidence of Staphylococcus species. Chest x-ray shows extensive pleural-parenchymal opacities in the right hemithorax, and patchy opacity at the left lower lobe area. Progress note dated January 03, 2024. 73-year-old male seen in room 253. The patient has now been in the hospital for 52 days. He remains on mechanical ventilator, with the modality being the pressure regulated volume control modality, also known as VC plus. The patient's inspiratory time is 0.8 seconds, and his targeted tidal volume is 450 cc. Rate is 32, FiO2 30%, PEEP of 5. Blood gases show pO2 of 95, pCO2 of 34, pH of 7.41. The patient is on TPN at 90 cc an hour, propofol at 15 mcg/kg/min, saline at 10 cc an hour. Daptomycin and Eraxis have been discontinued. Zerbaxa is on day #6 of . We are going to DC the metoprolol and midodrine from the [facility]. Apparently, the patient has been denied twice, to the long term care social worker acute care facility by his insurance. White count is 1.5, hemoglobin 8, macro 24.4, platelet count 78,000. Sodium 139, potassium 5.3, chlorides 119, CO2 20, BUN 44, creatinine 1.05. Glucose 192. Calcium 7.1. Magnesium 1.8. The chest x- ray today, is largely unchanged. Progress note dated January 04, 2024. 73-year-old male seen in room 253. The patient has now been in the hospital for 53 days. He remains on the mechanical ventilator. He is on pressure regulated volume control or VC plus, but the inspiratory time is 0.8 seconds, and a targeted tidal volume of 450 cc. His rate is 32, FiO2 is 30%, PEEP of 5. Blood gases show pO2 of 81, pCO2 of 35, and a pH of 7.44. He is on propofol at 10 mcg/kg/min, TPN at 90 cc an hour, and saline at 10 cc an hour. His only anti biotic currently is Zerbaxa. White count 13.4, hemoglobin 8.1, hematocrit 25, platelet count 95,000. Sodium 141, potassium 5.2, chlorides 114, CO2 23, BUN 47, creatinine 1.10. Glucose is 110. Calcium 7.4. Albumin is 1.8. Chest x- ray shows a largely unchanged evaluation. Progress note dated January 05, 2024. 73-year-old male seen in room 253. The patient has now been in the hospital for 54 days. He remains on mechanical ventilator. He is on pressure regulated volume control, with inspiratory time of 0.8 seconds, and a targeted tidal volume of 450 cc. Rate is set at 32, FiO2 30%, PEEP of 5. Blood gases show pO2 of 98, pCO2 35, and a pH of 7.42. The patient's propofol has been weaned off. He is just getting scheduled Dilaudid and Ativan. He is getting TPN at 90 cc an hour, saline at 10 cc an hour. His only antibiotic is Zerbaxa, as Eraxis, and daptomycin has been discontinued. The patient will get a spontaneous breathing trial today with pressure support of 10 and CPAP of 5. White count 11.3, hemoglobin 7.6, hematocrit 23.4, platelet count 100,000. Sodium 138, potassium 3.9, chlorides 116, CO2 21, BUN 46, Creatinine 1.07. Albumin Is 1.9. Chest x- ray is largely unchanged. Patient was reevaluated today on 01/17/2024, patient was supposed to be sent home today with hospice to follow at home, however the family today/ change her mind, and asking to consider palliative care, she is also asking for a second opinion but she is not specific about the second opinion, explained to her that the only 3 stain dipper that we have in this institution is myself Dr. Livia espinoza and Dr. Nieves and we have all given the same opinion, and if she could find a place where they could accept him to transfer to another institution, I will be more than happy to do so patient was declined transfer to [facility] he was also declined transfer to the [facility]. Today he is on pressure control mode of mechanical ventilation basically unchanged compared to yesterday. He remains on Precedex 1.4 mcg/kg/h remains on TPN, still could not use his J-tube. Patient is intermittently on Dilaudid, antibiotics arce he is receiving Cipro and fluconazole. Patient had multiple attempts to wean, could not tolerate more than few hours of pressure support of 14 and CPAP this has been done quite frequently and sometimes he does not even tolerate the switch from pressure control mode of mechanical ventilation to pressure support of mechanical ventilation. Patient is definitely a failure to wean and multiple attempts have failed. Patient has critical illness polyneuropathy he continues to have some nonspecific airspace disease bilaterally continues to have a pigtail catheter in place, and continues to have air leak,WBC count today is 16.3 hemoglobin 8.1 electrolytes showed low potassium of 3.3 being addressed accordingly renal profile is normal. Chest x- ray today is actually showing improvement compared to the previous x-rays he had all along. With significant improvement in the right upper lobe and the right lower lobe, continues to have some infiltrate in the left lower lobe Castriz seems to be intact Patient was seen01/18/24, remains in the ICU, remains intubated and mechanically ventilated, he is on pressure control mode of mechanical ventilation with pressure control of 15, DI of 0.8, rate 20, FiO2 30% and PEEP of 5 no ABG was done this morning did not feel to be necessary. Patient had a WBC of 15.8 hemoglobin 7.4. Basic metabolic profile is normal renal profile is normal continues to have bilateral airspace disease on chest x-ray specially the right upper lobe, and left lower lobe. Continues to have a pigtail catheter in place and continues to drain and he continues to have a air leak. Patient remains on ciprofloxacin, he is also on fluconazole, tobramycin was added by infectious disease on the case. Patient is getting now physical therapy and Occupational Therapy, he remains on Precedex at 1.3 mcg/kg/h he is also on TPN at 90 cc/h chest x-ray was noted and again he has bilateral airspace disease. Patient remains frail, chronically ill, and he does have clearly critical illness polyneuropathy. No plans by surgery to do much about his J-tube, continues to have a wound VAC in place. Today the patient will be given another trial of pressure support and CPAP, and will document how long he could do on pressure s upport mode of mechanical ventilation Patient was seen today on 01/19/2024, patient remains in the ICU, intubated and mechanically ventilated. Patient tolerated about 2 hours of pressure support and CPAP weaning yesterday, then he became restless, agitated, and went on to develop this ongoing cough. Hence had to be placed back on mechanical ventilation and remains on pressure control mode of mechanical ventilation with PI 15 ti 0.8 per 820 FiO2 30% PEEP of 5. Patient continues to have episodes of agitation and he has been on Precedex at 1.1 mcg/kg/h. Remains on TPN at 90 cc/h remains on IV fluid of 0.9 at 50 cc/h sodium is 129, that we will correct with 0.9 normal saline. Patient remains on tobramycin and ciprofloxacin and fluconazole. Continues to have right-sided pigtail catheter in place, and continues to have ongoing air leak. Chest x-ray continues to show airspace disease in both lungs but more concerning is the right upper lobe abnormality. Multiple attempts have been made in the past to wean the patient, and has not been able to tolerate more than few hours of pressure support and CPAP, will try another weaning trial today with pressure support of 14 and CPAP. Unfortunately I cannot place the patient on Seroquel and hoping to get rid of Precedex, mostly because we cannot use his GI tract. Fanny arce the patient remains on TPN. Progress note dated January 20, 2024. 73-year-old male who is now been in the hospital for 69 days. I last saw the patient on January 05, 2024. Currently, the patient remains in the intensive care unit, room 253. He spent about 20 hours on pressor support of 14 and CPAP of 5, yesterday, and is currently back on pressor support and CPAP. When not on pressor support and CPAP, the patient is on pressure assist control, with an inspiratory pressure of 15 cm of water, and inspiratory time is 0.8 seconds. Respiratory rate 20, PEEP 5, and FiO2 30%. The patient remains on TPN at 90 cc an hour, and saline at 50 cc an hour. He continues on Precedex at 1 mcg/kg/h. The patient is also on ciprofloxacin, tobramycin, and Diflucan. Current labs are good a white count 16.3, hemoglobin 8.3, hematocrit 25.3, and a normal plate let count. Sodium 130, potassium 3.7, chlorides 103, CO2 22, BUN 30, creatinine 0.65. Albumin is 2.2. Glucose is 195. Most recent sputum shows evidence of Pseudomonas aeruginosa. Chest x-ray is showing chronic changes, with no appreciable change. Progress note dated January 21, 2024. 73-year-old male who has now been in the hospital for 70 days. The patient is seen again today in room 253. Since yesterday, the patient has been on pressor support of 14, CPAP of 5. FiO2 is 30%. He did not need to go back on pressure assist control ventilation. He is currently on Precedex and 0.9 mcg/kg/h, TPN at 90 cc an hour, saline at KVO. The patient had a pretty uneventful night. He does have some episodes of coughing. We did add some aerosolized lidocaine, which seemed to help initially, but may be more recently not so much. White count 16.6, hemoglobin 7.8, macro 24.4, and platelet count normal. Sodium 129, potassium 3.7, chlorides 102, CO2 21, BUN 27, creatinine 0.59. Glucose 168. Magnesium 1.4. Most recent sputum culture showed evidence of Pseudomonas aeruginosa. No chest x-ray today. The patient is currently on tobramycin, ciprofloxacin, and fluconazole, as per infectious diseases. Progress note dated January 22, 2024. 73-year-old male who is now been here for 71 days. The patient is seen today in room 253. He continues on pressure support of 14, CPAP of 5. The patient's FiO2 is 30%. He is getting TPN at 90 cc an hour, saline at 50 cc an hour, and Precedex at 0.5 mcg/kg/h. He continues on ciprofloxacin, tobramycin, and fluconazole. We will attempt some trach collar today. White count 14.9, hemoglobin 7.9, hematocrit 24.6, platelet count 399,000. Sodium 130, potassium 3.6, chlorides 104, CO2 22, BUN 25, creatinine 0.64. Glucose is 180. Albumin i s 2.3. Objective - Vital Signs Vital signs: Vital Signs Temp 98.2 F 01/22/24 09:00 Pulse 82 01/22/24 11:36 Resp 20 01/22/24 11:00 BP 127/83 01/22/24 11:00 Pulse Ox 97 01/22/24 11:00 FiO2 30 01/22/24 09:00 Intake & Output 01/21/24 01/22/24 01/22/24 18:59 06:59 18:59 Intake Total 1700.00 3281.989 771 Output Total 1605 1365 380 Balance 95.00 1916.989 391 Weight 110.8 kg Intake: IV 1600 2000 771 0.9 Normal Saline @ KVO 110 120 11 Magnesium Sulfate-D5w Pmx 100 1 gm In Dextrose/Water 1 100ml.bag @ 100 mls/hr IVPB ONCE ONE Rx#: [id number] Potassium Chloride 10 meq 100 In Water For Injection 1 100ml.bag @ 100 mls/hr IVPB Q1H [facility] Rx#: [id number] Potassium Chloride 10 meq 100 In Water For Injection 1 100ml.bag @ 100 mls/hr IVPB Q1H [facility] Rx#: [id number] Sodium Chloride 0.9% 1, 500 600 200 000 ml @ 50 mls/hr IV . Q20H [facility] Rx#:[id number] TPN 990 1080 360 Tobramycin Sulfate 600 mg 100 In Sodium Chloride 0.9% 100 ml @ 115 mls/hr IVPB Q48H [facility] Rx#:[id number] Intake, IV Titration 100.00 1281.989 Amount Dexmedetomidine/0.9% NaCl 100.00 249.989 (Pmx) 400 mcg In Empty Bag 1 bag @ 0.2 MCG/KG/HR 5.2 mls/hr IV .[id number] [facility] Rx#:[id number] Mvi, Adult No.4 with Vit 1032 K 10 ml Trace (Conc-1Ml/ Dose) 1 ml Parenteral Electrolytes 20 ml Sodium Acetate 16 meq Potassium Chloride 10 meq Magnesium Sulfate gm 0.5 gm Sodium Phosphate 12 mmol In Amino Acids 5 %/ Dextrose 20 % 1,000 ml @ 90 mls/hr IV .BY DURATION [facility] Rx#:[id number] Output: Chest Tube Drainage 30 30 Chest Tube Right 30 30 Drainage 80 80 Medial Abdomen 0 0 Right Abdomen 50 80 Right Upper Posterior 30 Chest Urine 1525 1255 350 Other: Voiding Method Indwelling Catheter Indwelling Catheter Indwelling Catheter ABP, PAP, CO, CI - Last Documented Arterial Blood Pressure 173/76 - Exam No acute distress, somewhat lethargic, in no acute distress, with a midline tracheostomy tube. HEENT examination is grossly unremarkable. Neck supple. Full range of motion. No adenopathy thyromegaly or neck vein di stention. Midline tracheostomy tube noted. Cardiovascular examination reveals regular rhythm rate. S1-S2 normal. No S3 or S4. No discernible murmur noted. Lungs reveal mild scattered rhonchi. No wheezes or crackles. Breath sounds equal. Saturations are 97%. Abdomen soft, without bowel sounds. Extremities are intact. No cyanosis clubbing or edema. Skin is without rash or lesion. Neurologic examination is somewhat improved. - Labs CBC & Chem 7: 01/22/24 05:32 01/22/24 05:32 Labs: Abnormal Lab Results - Last 24 Hours (Table) 01/21/24 01/21/24 01/21/24 Range/Units 12:01 17:55 23:24 WBC (3.8-10.6) k/uL RBC (4.30-5.90) m/uL Hgb (13.0-17.5) gm/dL Hct (39.0-53.0) % RDW (11.5-15.5) % Sodium (137-145) mmol/L BUN (9-20) mg/dL Creatinine (0.66-1.25) mg/dL Glucose (74-99) mg/dL POC Glucose (mg/dL) 198 H 165 H 169 H (70-110) mg/dL Calcium (8.4-10.2) mg/dL Alkaline Phosphatase (38-126) U/L Albumin (3.5-5.0) g/dL 01/22/24 01/22/24 01/22/24 Range/Units 05:32 05:32 05:49 WBC 14.9 H (3.8-10.6) k/uL RBC 2.68 L (4.30-5.90) m/uL Hgb 7.9 L (13.0-17.5) gm/dL Hct 24.6 L (39.0-53.0) % RDW 17.1 H (11.5-15.5) % Sodium 130 L (137-145) mmol/L BUN 25 H (9-20) mg/dL Creatinine 0.64 L (0.66-1.25) mg/dL Glucose 150 H (74-99) mg/dL POC Glucose (mg/dL) 174 H (70-110) mg/dL Calcium 7.3 L (8.4-10.2) mg/dL Alkaline Phosphatase 184 H (38-126) U/L Albumin 2.3 L (3.5-5.0) g/dL 01/22/24 Range/Units 11:39 WBC (3.8-10.6) k/uL RBC (4.30-5.90) m/uL Hgb (13.0-17.5) gm/dL Hct (39.0-53.0) % RDW (11.5-15.5) % Sodium (137-145) mmol/L BUN (9-20) mg/dL Creatinine (0.66-1.25) mg/dL Glucose (74-99) mg/dL POC Glucose (mg/dL) 180 H (70-110) mg/dL Calcium (8.4-10.2) mg/dL Alkaline Phosphatase (38-126) U/L Albumin (3.5-5.0) g/dL Assessment and Plan Assessment: Acute hypoxemic respiratory failure with failure to wean from mechanical ventilation, S/P tracheostomy/PEG tube on December 10, 2023. Respiratory failure, requiring reintubation, on November 25, 2023. Acute hypoxic respiratory failure requiring intubation/mechanical ventilation secondary to aspiration during EGD on 11/12/2023. Patient was extubated on 11/14/2023. S/P J-tube placement 11/16/2023, which continues to leak. Septic shock. Acute kidney injury secondary to sepsis, and ATN. Acute bowel obstruction, diagnosed via CT scan, November 24, 2023. Acute aspiration pneumonia. Acute aspiration during upper endoscopy most likely secondary to gastric outlet obstruction secondary to non-Hodgkin's lymphoma. Chronic abdominal pain, secondary to B-cell lymphoma. Unexplained weight loss most likely secondary non-Hodgkin's lymphoma involving the stomach. Paroxysmal atrial fibrillation. Chronic anemia. Plan: Plan dated November 21, 2023. The patient is seen today in room 517. The patient is on 3 L of oxygen. He continues on Zosyn. Continues on tube feeds. He had a CT scan of the abdomen and pelvis. His respiratory status is improved. We will continue to follow. Prognosis is guarded. Labs, x-rays, medications are reviewed. The patient is apparently scheduled for an outpatient PET scan. Plan dated November 22, 2023. The patient appears very stable. His is in the room with him. Labs, x- rays, and medications are reviewed. The patient continues on Zosyn. Resting room air saturation was 89%. Chest CT, revealed bilateral patchy and basilar infiltrates. We will continue to follow make recommendations along the way. Prognosis is guarded. The patient was diagnosed with a gastric outlet obstruction, secondary to non-Hodgkin's lymphoma. Plan dated November 23, 2023. The patient is seen today in room 517. He is resting comfortably. He continues on saline at 10 cc an hour. He is getting tube feedings with Pivot at 20 cc an hour. He has been weaned down to 2 L of oxygen. He continues on Zosyn. Labs, x-rays, and all medications are reviewed. Prognosis is guarded. We will continue to follow. Plan dated November 24, 2023. The patient will be admitted to the intensive care unit. I believe he deserves to be an ICU patient. I did speak to the surgeon. Labs, x-rays, and medications are reviewed. No additional recommendations are made. Prognosis is guarded. The patient has now been in the hospital for 12 days. We will continue to follow. He continues on Zosyn. Plan dated December 14, 2023. The patient is seen today in room 253. Currently, the patient is on the ventilator. He will have another PSV/CPAP trial. Apparently yesterday, he went for about 2-1/2 hours before he required to be placed back on the ventilator. The patient is getting saline at 10 cc an hour, and Nepro tube feedings at 50 cc an hour, which is goal. The patient had a fever, and will be recultured. In addition, the midline incision in the abdomen, shows some evidence of purulence, and will have a surgeon, take a look at that. Currently, the patient is not on any antibiotics. We will recheck a procalcitonin level. One of the family memb ers was in the room, and was updated. Plan dated December 15, 2023. The patient actually spent about 6 hours on pressor support yesterday. The patient will have another spontaneous breathing trial today. The patient remains off of all sedation. He is getting Ativan and Dilaudid as needed. He is receiving tube feedings at goal. Labs, x-rays, and medications are reviewed. The repeat procalcitonin level was elevated at 1.92. We added Zosyn empirically. He had pancultures done yesterday. Labs, x-rays, and all medications are reviewed. Prognosis is guarded. An update was given to the da ashvinhter and to the right. Dictation was produced using [employer] software. Please excuse any grammatical, word or spelling errors. Plan dated December 30, 2023. The patient is seen today in room 253. The patient has now been in the hospital for 48 days. He was admitted way back on November 11. The patient currently is not ready to be weaned, given his high respiratory rate, and high minute volume. The patient is converted back to volume assist-control. In addition, the patient continues on Zerbaxa, Eraxis, and daptomycin, because of recent infections, including Pseudomonas, and Citrobacter, as well as Staphylococcus. Labs, x-rays, and medications are reviewed. The patient will continue on a small dose of propofol, Dilaudid as needed, and Ativan. Dexmedetomidine which is currently running was to be discontinued. Additional recommendations and suggestions are forthcoming. Prognosis is poor in my opinion. The patient remains a full code. The remains hopeful. Dictation was produced using [employer] software. Please excuse any grammatical, word or spelling errors. Plan dated December 31, 2023. The patient is seen today in room 253. Family members are at the bedside. After observing the patient on the ventilator, for period of time, it was clear to me, the patient was not synchronous with the ventilator. For that reason, we switched from volume assist-control, to pressure regulated volume control or VC plus. The patient had a inspiratory time of 0.8 seconds, and a targeted tidal volume of 450 cc. Everything else stayed the same. After switching, the patient's respiratory rate came down, as did his minute volume. He appeared much more comfortable. Labs, x-rays, medications are reviewed. The patient continues on Zerbaxa, Eraxis, and daptomycin. We will continue to follow. Prognosis is guarded. No additional recommendations are made. The patient is on propofol at 40 mcg/kg/min. I have asked the nurses to use both Ativan every 6 hours, and Dilaudid every 2 hours as needed, to see if we can get him on a small dose of propofol so that we can send the patient to long-term acute care facility. Prognosis is guarded. Dictation was produced using [employer] dictation software. Please excuse any grammatical, word or spelling errors. Plan dated January 01, 2024. The patient is seen today in room 253. I had a long conversation with the patient's family yesterday. It was encouraged, by the primary service, Dr. Rowe. Dr. Rowe also talked to the family about CODE STATUS, and the possibility of a palliative care consult or hospice consultation. The patient is chronically and critically ill, but stable. The patient remains on the mechanical ventilator, and is not able to be weaned at this time. Previous attempts at weaning, has caused significant increases in respiratory rate, significant increases in minute volume, and disruptions of his vital signs. The patient continues on Zerbaxa, daptomycin, and Eraxis. The patient is on a relatively smaller dose of propofol at 15 mcg/kg/min. I have encouraged the n faraz to wean that down even further. In addition to propofol, the patient is receiving Ativan, and Dilaudid as needed. Labs, x-rays, medications are reviewed. The patient could be considered for possible discharge to long-term acute care facility or select specialty. Plan dated January 02, 2024. I have ongoing discussions with the family. The patient is doing very poorly in my opinion, and is currently not weanable. The patient, could be transferred to a long-term acute care facility or specialized nursing facility. We are attempting to get his propofol dose down to a reasonable level. I did asked the nurses to make sure that the patient got his Dilaudid, and Ativan, as scheduled medications. The patient blood gases are excellent. pO2 is 90, pCO2 is 34, pH is 7.40. The patient remains on pressure regulated volume control modality of ventilation. Labs, x-rays, and all medications are reviewed. The patient is overall prognosis remains poor. The patient remains a full code patient. I did have a long talk with the patient's just a few days ago. Plan dated January 03, 2024. The patient is seen again in room 253. The , and one of the family members at the bedside. The patient continues on mechanical ventilation, and at this time, cannot be weaned. The patient is getting TPN at 90 cc an hour, propofol at 15 mcg/kg/min. The patient is receiving saline at 10 cc an hour. We were in contact with the infectious disease doctor. Daptomycin and Eraxis were d iscontinued. The patient is on day #6 of 10, on Zerbaxa. Metoprolol and midodrine were discontinued from the [facility]. The patient's insurance denied transfer to a long-term acute care facility twice now. Labs, x-rays, medications are reviewed. The patient is overall prognosis is very poor. Today's peak airway pressure is 19 cm of water. The Plateau pressure is 11 cm of water. We will continue to follow the patient, make recommendations along the way. I have had ongoing discussions with the patient's . Plan dated January 04, 2024. The patient is seen in room 253. The and daughter are in the room with the patient. She apparently did call [facility] yesterday, to see if they would except her . They apparently said that they had no beds, and did not currently except him. The patient continues on the mechanical ventilator. The patient's antibiotics have been pared down, to only Zerbaxa for another 3 to 4 days. The patient is down to propofol at 10 mcg/kg/min, TPN at 90 cc an hour, and saline at 10 cc an hour. The patient remains on VC plus modality of ventilation. Blood gases show pO2 of 81, pCO2 of 35, pH is 7.44. Labs, x-rays, medications are reviewed. Prognosis is guarded. We will continue to follow. Plan dated January 05, 2024. The patient will be given a spontaneous breathing trial, with pressure support of 10, CPAP of 5. I have asked the respiratory therapist to watch the patient carefully. Should he demonstrate any worsening respiratory status, high respiratory rate, low tidal volumes, high heart rate, diaphoresis, changes in blood pressure, or anything that would suggest fatigue, she should switch her back to the former modality. Labs, x-rays, medications are reviewed. I did spend some time talking to the patient's . I gave her an update. Apparently the patient's did call [facility], to see if he could be transferred. No beds were available. Also, he has been denied transfer to long-term acute care, by his insurance company, twice. Plan dated January 20, 2024. The patient was on pressor support and CPAP, for about 20 hours yesterday. The patient was placed back on pressor support and CPAP, this morning. When not on pressor support and CPAP, the patient is maintained on pressure assist control, with inspiratory pressure of 15 cm of water, inspiratory time 0.8 seconds, FiO2 30%, rate 20, PEEP of 5. Blood gases were not done. TPN is at 90 cc an hour, saline's at 50 cc an hour and Precedex is 1 mcg/kg/h. The patient remains on ciprofloxacin, tobramycin, Diflucan. Clinically, the patient appears to be tolerating weaning trials reasonably well. We are hoping to have the patient transferred to long-term acute care tomorrow. Additional recommendations and suggestions are forthcoming. Prognosis is guarded. Labs, x-rays, and all medications are reviewed. Dictation was produced using [employer] software. Please excuse any grammatical, word or spelling errors. Plan dated January 21, 2024. The patient is seen today in room 253. Family members are at the bedside as they have been all along during this hospitalization. The patient continues on pressure support of 14, and CPAP of 5, and an FiO2 of 30%. He has been on those settings, since yesterday. Clinically, the patient appears reasonably stable. The patient is currently on Precedex 0.9 mcg/kg/h, and TPN at 90 cc an hour. Labs, x-rays, and all medications are reviewed. We are hoping to be able to get the patient discharged to long-term acute care facility. We will continue to follow make recommendations. In terms of antibiotics, the patient is on ciprofloxacin, tobramycin, and Diflucan. Prognosis is guarded. Plan dated January 22, 2024. The patient is again seen today in room 253. He has not been in the hospital for 71 days. The patient continues on pressure support of 14, CPAP of 5, and 30%. He has been on that for more than a day and a half. He continues on TPN at 90 cc an hour, saline at 50 cc an hour. The patient continues on ciprofloxacin, tobramycin, and fluconazole. He is also on Precedex 0.5 mcg/kg/h. We will attempt a trach collar today. We are waiting for authorization from the long-term acute care facility. Labs, x-rays, and all medications are reviewed. Prognosis is guarded. Dictation was produced using [employer] dictation software. Please excuse any grammatical, word or spelling errors. Time with Patient: Greater than 30
--- NOTE | 2024-01-22 13:30 | P.PN ---
Subjective Progress Note Date: 01/22/24 Last week the patient was being cared by Dr. Hernández. Please refer to his note for further details. Since of seeing the patient last the is at bedside and feels that the patient is making improvement and he is responding to her and following commands. Objective - Vital Signs Vital signs: Vital Signs Temp 98.2 F 01/22/24 09:00 Pulse 92 01/22/24 12:05 Resp 20 01/22/24 11:00 BP 127/83 01/22/24 11:00 Pulse Ox 99 01/22/24 12:07 FiO2 40 01/22/24 12:07 Intake & Output 01/21/24 01/22/24 01/22/24 18:59 06:59 18:59 Intake Total 1700.00 3281.989 9970 Output Total 1605 1365 780 Balance 95.00 4454.475 7270 Weight 110.8 kg Intake: IV 1600 2000 9970 0.9 Normal Saline @ KVO 110 120 20 Fluconazole in NaCl,Iso- 100 Osm 200 mg In Saline 1 100ml.bag @ 100 mls/hr IVPB DAILY [facility] Rx#: [id number] Magnesium Sulfate-D5w Pmx 100 1 gm In Dextrose/Water 1 100ml.bag @ 100 mls/hr IVPB ONCE ONE Rx#: [id number] Potassium Chloride 10 meq 100 In Water For Injection 1 100ml.bag @ 100 mls/hr IVPB Q1H [facility] Rx#: [id number] Potassium Chloride 10 meq 100 In Water For Injection 1 100ml.bag @ 100 mls/hr IVPB Q1H [facility] Rx#: [id number] Sodium Chloride 0.9% 1, 500 600 200 000 ml @ 50 mls/hr IV . Q20H [facility] Rx#:[id number] TPN 990 1080 9450 Tobramycin Sulfate 600 mg 100 In Sodium Chloride 0.9% 100 ml @ 115 mls/hr IVPB Q48H [facility] Rx#:[id number] Intake, IV Titration 100.00 1281.989 Amount Dexmedetomidine/0.9% NaCl 100.00 249.989 (Pmx) 400 mcg In Empty Bag 1 bag @ 0.2 MCG/KG/HR 5.2 mls/hr IV .[id number] [facility] Rx#:[id number] Mvi, Adult No.4 with Vit 1032 K 10 ml Trace (Conc-1Ml/ Dose) 1 ml Parenteral Electrolytes 20 ml Sodium Acetate 16 meq Potassium Chloride 10 meq Magnesium Sulfate gm 0.5 gm Sodium Phosphate 12 mmol In Amino Acids 5 %/ Dextrose 20 % 1,000 ml @ 90 mls/hr IV .BY DURATION [facility] Rx#:[id number] Output: Chest Tube Drainage 30 30 Chest Tube Right 30 30 Drainage 80 80 Medial Abdomen 0 0 Right Abdomen 50 80 Right Upper Posterior 30 Chest Urine 1525 1255 750 Other: Voiding Method Indwelling Catheter Indwelling Catheter Indwelling Catheter ABP, PAP, CO, CI - Last Documented Arterial Blood Pressure 173/76 - Exam General: Lying in bed and does not appear in acute distress. Resp: Trach on vent. Neuro: Limited. Patient is drowsy but is awake both voice. He is following simple commands such as showing thumbs up, closing his eyes to command, smiling. Not verbalizing. No facial weakness. Was able to lift up bilateral upper extremities above gravity. - Labs CBC & Chem 7: 01/22/24 05:32 01/22/24 05:32 Labs: Abnormal Lab Results - Last 24 Hours (Table) 01/21/24 01/21/24 01/22/24 Range/Units 17:55 23:24 05:32 WBC (3.8-10.6) k/uL RBC (4.30-5.90) m/uL Hgb (13.0-17.5) gm/dL Hct (39.0-53.0) % RDW (11.5-15.5) % Sodium 130 L (137-145) mmol/L BUN 25 H (9-20) mg/dL Creatinine 0.64 L (0.66-1.25) mg/dL Glucose 150 H (74-99) mg/dL POC Glucose (mg/dL) 165 H 169 H (70-110) mg/dL Calcium 7.3 L (8.4-10.2) mg/dL Alkaline Phosphatase 184 H (38-126) U/L Albumin 2.3 L (3.5-5.0) g/dL 01/22/24 01/22/24 01/22/24 Range/Units 05:32 05:49 11:39 WBC 14.9 H (3.8-10.6) k/uL RBC 2.68 L (4.30-5.90) m/uL Hgb 7.9 L (13.0-17.5) gm/dL Hct 24.6 L (39.0-53.0) % RDW 17.1 H (11.5-15.5) % Sodium (137-145) mmol/L BUN (9-20) mg/dL Creatinine (0.66-1.25) mg/dL Glucose (74-99) mg/dL POC Glucose (mg/dL) 174 H 180 H (70-110) mg/dL Calcium (8.4-10.2) mg/dL Alkaline Phosphatase (38-126) U/L Albumin (3.5-5.0) g/dL Assessment and Plan Assessment: * Altered mental status, likely due to toxic metabolic encephalopathy---Mentation is improving * Generalized weakness, 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 * Aspiration pneumonitis from retained gastric contents * Ventilator dependent respiratory failure, status post tracheostomy 12/10/2023 * Right lung abscess * Status post pulmonary edema * History of small bowel perforation at the site of jejunostomy tube tip with balloon * Peritonitis, secondary to above * Acute kidney injury, with hemodialysis started 12/05/2023 * Acute recurrent atrial fibrillation, currently in sinus mechanism * Septic shock, recovered * Bacteremia with coagulase-negative staph * Hypertension * Anemia * Thrombocytopenia, resolved * History of gastric B-cell lymphoma, with gastric outlet obstruction. Plan: * Stat EEG was performed on 12/08/2023: It revealed generalized slowing of severe degree. This is suggestive of generalized cerebral dysfunction as can be seen with toxic metabolic encephalopathy or related to diffuse structural brain about a day. Clinical correlation is recommended. Sporadic, periodic generalized sharp-appearing waves were seen. This may suggest underlying co rtical irritability. No electrographic seizure was recorded. * Therefore, Dr. Hernández empirically started on Keppra 500 mg daily. I lowered to 250mg bid on 12/25/23 since mentation is improving. . * Repeat EEG on 12/12/2023: Is abnormal. The study is limited because of diffuse myogenic artifact. The background slowing is suggestive of severe encephalopathy. Otherwise no focal slowing, epileptiform discharges or seizure on the EEG. * CT head performed 12/07/2023 revealed no acute intracranial process. Some atrophy. I personally reviewed CT head agree with the findings. * PT and OT are consulted and patient will benefit from rehab and if possible inpatient. * Recommend outpatient EMG with NCS of uppers and lowers if still has weakness after therapy. * ID following. * For medical management as per critical care and other specialties on board. The plan is discussed with patient's who is at bedside. Will follow-up sporadically. Time with Patient: Less than 30
--- NOTE | 2024-01-22 15:18 | P.PN ---
Progress Note - Text Progress Note Date: 01/22/24 Chief Complaint: On the ventilator This is a 73-year-old patient, follows with Dr. Patricia Deal. Patient was seen this morning in the ICU. Patient's and daughter at the bedside. History obtained predominantly by the . Patient been having trouble with his stomach symptoms for close to 8 months. Patient underwent EGD by Dr. Sahara Cheng yesterday. Patient was found to have ulcerated around the antrum and obstruction to the pylorus. A lot of retained food was found. Patient aspirated. Had to be intubated and brought to the ICU. On a Levophed drip. FiO2 50 and a PEEP of 6. Patient had been losing weight lost about 25 pounds. Previously has a history of mitral valve prolapse. November 13: ICU. Patient remains on Precedex drip and propofol drip. Did not do well attempted extubation yesterday. Patient been off Levophed. NG tube to suction. Spoke to patient's and son at the bedside. Biopsy results awaited. Hemoglobin dropped to 6.9 this morning. Get a unit of blood. November 14: ICU. Up in a chair. Extubated yesterday. NG tube to suction. at the bedside. 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 Oncology was consulted. They have ordered a port. Results discussed with Dr. Sahara Cheng. General surgery was consulted for J-tube placement. Discussed with at the bedside. Patient getting IV fluids, IV Zosyn,. Patient has been on IV amiodarone for A-fib-back in sinus rhythm. Multiple PACs. Did receive unit of blood yesterday. Also IV ferric gluconate. November 15: ICU. Patient earlier today underwent jejunostomy tube placement and a port placement. Patient awake. Answering questions. NG tube to suction present. Updated patient's . Patient remains on IV amiodarone and IV Zosyn. November 16: ICU. Up in the chair. NG tube present but not to suction. Trickle feeding through the jejunostomy tube should be started today. Dietitian has been on board. IV Zosyn to continue. Patient's and his sister at the bedside. Discussed. Also spoke with Dr. Serna. Given patient has no other predisposing cardiac factors for the A-fib except acute illness. His LV function is normal. Left atrium is normal. He has already been loaded with IV amiodarone. Will switch him to oral Lopressor 12.5 twice daily. Hence will DC amiodarone. Patient yesterday had wheezing was put on bronchodilators steroids per pulmonary. November 17: Propped up in bed. NG tube was discontinued. Sinus rhythm. Remains NPO. Getting G-tube feeding at 40 cc an hour. Dietitian following. Get arrangements done for DC home tomorrow including tube feeding. Increase activity discussed with patient and elder daughter at the bedside. Still requiring oxygen. Incentive spirometry. November 18: Patient up in recliner. Earlier today spoke to administrator social welfare David. Informed patient is rather weak and will be going to the [facility]. Looking at authorization. Denae came to the room and spoke to patient his and his daughter. They are very keen to take the patient home as 3 daughters all nurses and they will take care of him at home. Patient earlier today to abdominal cramping and some loose stools.'s tube feeding was held. Told the nurse to start back at the rate of 40 cc an hour. He was before the getting it at 55 cc an hour. Incentive spirometry was again emphasized. Patient remains on 4 L of oxygen. November 19: I saw the patient this morning. Hence I am in the evening. Morning was sitting with his sons. Has some edema. Lungs had crackles I gave him 40 mg of Lasix. He did make good urine. Tube feeding was held from the p revious evening of because of abdominal cramping. Acute abdominal series showed nonspecific bowel gas pattern and SBO to be ruled out. Family and patient was updated. Told him discharge will depend on day by day. Later this afternoon CT scanAnd abdomen pelvis done. Showed small bowel to be 3 point centimeter dilated. Some anasarca. Gastric findings. Gallstones. Later spoke to Dr. Irby from general surgery. They will further review and decide about further plan of action. Will give further dose of IV Lasix because of fluid overload from likely hypoalbuminemia and IV fluids previously received. Patient may take his pills by mouth. Total time spent today about 1 hour with over 40 minutes of discussion. Patient did state his breathing is better after Lasix this morning. November 20: Saw the patient this morning. was present. Patient received 2 more doses of Lasix. Diuresed well. Breathing much better. Lungs are sounding better. Discussed with Dr. Zepeda other surgeon. He is taking 3 cc out of the balloon and the gastrostomy tube. Started trickle feeding at 5 cc an hour. Will see how this does. Later in the day ran into the and the daughter again. Did update them on the same. Dilaudid was discontinued yesterday but morphine was ordered by surgery for patient having pain. Concerns about GI issues with that we will DC the morphine. As family does not want the same. November 21: Patient reclining bed. Tired. Several family members at the bedside. Including his and eldest daughter. Patient started on trickle feed yesterday at 5 cc an hour. This morning he has been on 10 cc an hour. Still having some loose stools. C. difficile was ordered. Patient on 2 L of nasal cannula. Has diuresed well. Will give an additional dose of Lasix today. If C. difficile is negative and the diarrhea is from the tube feedings we may have to use a fecal management system to keep him comfortable. Otherwise patient remains NPO. Dietitian is following the patient. Care was discussed length with patient the and daughter at the bedside. Questions answered. Liquid Tylenol has been added for abdominal pain. Avoid narcotics. Elevated white count likely from Solu-Medrol 11/23/2023--patient was feeling better today. Multiple family member at bedside. No issues overnight. Normal saline at 10 cc an hour, tube feeding at 20 cc an hour, remains on Zosyn, on 3 L oxygen. Afebrile. Heart rate 62, respiratory rate 16, blood pressure 114/67, saturating 91% on 3 L. WBCs 14.5, 9.7 hemoglobin. Platelet 242. BMP is unremarkable. Pulmonary and general surgery following. General surgery recommended to continue tube feeds at 20 cc/h. 11/24/2023--patient reported significant abdominal discomfort, also noted to have leak around G-tube. General surgery is following, evaluated the patient at bedside, adjusted tube feeds. Also reported having diarrhea, on 2 L oxygen, went up to 5 L. Blood pressure was low, 500 mL fluid bolus with close monitoring of respiratory status ordered. Currently on DuoNebs, Solu-Medrol, will continue Zosyn. Chest x-ray showed a left lower lobe infiltrate. Abdominal x-ray showed multiple air-fluid levels. CT abdomen showed multiple dilated small bowel loops, consistent with obstruction, pneumoperitoneum, cholelithiasis and ascites. WBCs 14.1, platelet 255, hemoglobin 8.9. NG tube in place. Family at bedside. patient transferred to SICU for close monitoring. 11/25/23--patient is currently in the ICU, required Levophed overnight due to low blood pressure, low urine output with creatinine trending up. Nephrology following. Partner Marketing Intern also following. Patient remains n.p.o., NG tube in place, following NG tube insertion patient had total of 2 L output, J-tube was draining approximately 200 cc over last 8 hours, continues to have abdominal pain and abdominal tenderness. Patient on IV fluids. Currently on 4 L oxygen. WBCs 8.2, hemoglobin 12.3, platelet 188. Chest x-ray earlier today showed right sided port and a stable left lung airspace disease, NG tube in place. Patient currently on Zosyn, on IV Dilaudid for pain control, on IV Solu-Medrol. General surgery planning for OR today, started on TPN. 11/26/23--patient was seen and examined today. Patient is currently sedated, intubated on mechanical ventilation. Family at bedside. Patient underwent ex lap, abdominal washout, small bowel resection with new feeding jejunostomy tube placement yesterday, small bowel was noted to be perforated with significant contamination of abdominal cavity. Patient is currently on vancomycin and Zosyn. Creatinine went up to 2.85, nephrology following, recommended to continue IV fluids, avoid nephrotoxin Preserved EF on echocardiogram.. Patient currently on Levophed, vasopressin in the ICU for close monitoring. Patient is afebrile, heart rate 122, blood pressure 129/76, currently on mechanical ventilation, sedated. November 26: ICU. Intubated. FiO2 60 and a PEEP of 5. Drips include IV amiodarone. Heart rate was up early did get fired microgram of IV digoxin and 2.5 mg of IV Lopressor. Did drop her blood pressure bit. Urine output was low. Received 80 mg of IV Lasix. Ahmet to 150 cc. Other drips include IV propofol, vasopressin, Levophed. TPN was started yesterday. Antibiotics include IV Zosyn and vancomycin. Patient has a J-tube to drainage to gravity. Spoke to patient's younger daughter and at the bedside. Prognosis guarded. Continue current treatment plan. Chest x-ray shows right lower lobe consolidation. Small pleural effusion. November 27: ICU. Intubated. FiO2 55 and a PEEP of 5. Antibiotics include IV vancomycin. Drips include Levophed at a small dose, IV vasopressin, propofol, amiodarone. Patient converted to sinus rhythm this morning. Getting TPN and normal saline at 75 cc an hour. Urine output about 25 cc an hour. RAYA drain put out about 260 cc last 12 hours that is last retail loss prevention investigator. NG tube with bilious output. And also GI J-tube output to gravity. Spoke to patient's and daughter at the bedside. They understand patient still not out of the kee. Platelets have dropped-therefore probably Zosyn stopped. November 28: ICU. Intubated. FiO2 55 and a PEEP of 5. Patient is in sinus rhythm. Seen this morning. Due for dialysis catheter this afternoon. Urine output about 15 to 20 cc an hour. Patient is on IV Lasix 80 mg every 12. Saline is KVO. Drips include IV propofol vasopressin. Patient having significant output through the RAYA drain and the jejunostomy tube to drainage. Creatinine had been getting worse. Patient's at the bedside. Understands patient's remains critically ill. Hemoglobin is down to 7. Given that patient's pain hypotensive, and on vasopressin we will give a unit of blood with dialysis. Getting TPN antibiotic changed to IV meropenem November 29: ICU. Intubated. FiO2 55 and a PEEP of 5. Remains in sinus rhythm. Getting TPN. Dialyzed yesterday and this morning. About 1000 cc removed. Urine output about 50 cc an hour. Patient is on IV propofol. Off vasopressin. Still having significant output through the RAYA drain and jejunostomy tube. Patient received a second unit of blood yesterday. Patient's and daughter at the bedside. I did discuss guarded prognosis. Did asked them to revisit CODE STATUS.. Getting IV meropenem. November 30: ICU. Intubated. Did get a sedation holiday t today. Back on propofol. Getting TPN. Still getting IV Lasix. Fair urine output. Jejunostomy tube in last 8 hours was about 30 cc output. RAYA drain in the 8 hours had about 180 cc output. Telemetry shows sinus rhythm. NG tube has low intermittent suction with negative output. On the vent with FiO2 40 and a PEEP of 5. No hemodialysis today. Discussed with the and eldest daughter at the bedside. IV meropenem-patient's sputum had grown Citrobacter freundii and Pseudomonas aeruginosa. December 01: ICU. Intubated. Jejunostomy tube to gravity. Only 10 cc output in last 24 hours. RAYA drain. About 190 cc last 6 hours. Nasogastric tube to low intermittent suction. Minimal output. Patient is on a small dose of propofol 5 mics. Telemetry shows sinus rhythm. Patient started on small dose of Cleviprex this morning. Blood pressure. Getting TPN. FiO2 35 and PEEP of 5. Discussed with the at the bedside. Hemodialysis today December 02: ICU. Patient remains intubated. FiO2 35 PEEP of 5. Patient is on IV propofol. IV Cleviprex was discontinued yesterday. Also remains on TPN. Telemetry shows sinus rhythm. NG tube is good no output. Still significant output through the RAYA drain. Jejunostomy tube has minimal output. Patient had hemodialysis today 2 L of fluid was removed. Oral half liters yesterday. Patient getting a sedation holiday. General Surgery started the patient on trickle feeding at 10 cc an hour. I did speak to patient's at the bedside. Prognosis remains guarded but there is some improvement. December 03: ICU. Intubated. FiO2 35 PEEP of 5. Drips include IV propofol and Precedex. Getting TPN. Telemetry shows sinus rhythm. Remains on IV Lasix 80 mg twice a day. IV meropenem. Because patient gets easily agitated when transitioning off propofol he has been switched over to Precedex. For hemodialysis today. December 04: ICU. Intubated. FiO2 35 and a PEEP of 5. Patient been taken off propofol is on Precedex. Telemetry sinus rhythm. J-tube with minimal output. RAYA drain with decreased output. NG tube to suction minimal output. Family wanted to hold off trickle feeding until cleared by oncology. Which he did today. Trickle feeding will be started today. Spoke to patient's and one of the daughters at the bedside. Dr. Russ is spoken to the earlier this point they want to do further tracheostomy tube. October 4: ICU. Intubated. FiO2 35 PEEP of 5. Patient remains on Precedex and PPN. Patient's dialysis catheter was not functioning is getting another [address] Bobby this afternoon. Remains on IV meropenem. Has a RAYA drain in the jejunostomy tube to gravity. NG tube to low intermittent suction. No family at the bedside. December 06: ICU. Intubated. FiO2 35 PEEP of 5. RAYA drain putting out about approximately 120 cc per shift. Patient on IV Precedex. FiO2 35 PEEP of 5. Telemetry-sinus rhythm. Patient occasionally been put on small dose of Levophed specially for hemodialysis getting it today. Also started on midodrine for low blood pressure. Tolerating tube feeding at 10 cc an hour. Also had a bowel movement. Mentation has not improved. Even with sedation holiday. Neurology consulted. CT brain shows no acute process. December 07: ICU. Intubated. FiO2 35 PEEP of 5. Telemetry-sinus rhythm. NG tube to suction low intermittent minimal output. Getting TPN. Tube feeding at 20 cc an hour. RAYA drain averaging over 100 cc per shift. Remains on Precedex. EEG was done today. Discussed with at the bedside. Family is currently not inclined for tracheostomy tube today. Day 13 of being intubated December 08: ICU. Intubated. FiO2 35 PEEP of 5. Patient is put on back on propofol per parcel post carrier Dr. JIMENEZ. EEG did show some potential for spikes was put on Keppra by neurology. Telemetry shows sinus rhythm. NG tube to suction with no output. Tube feeding was put on hold because of questionable discharge on the site. Being restarted today. RAYA drain is 150 cc last 12-hour shift. Patient does open eyes. Family has decided to proceed with tracheostomy and surgery has been consulted for the same. Spoke to the at the bedside. For hemodialysis today. December 09: ICU. Intubated FiO2 35 PEEP of 5. Patient seen this morning. Pending tracheostomy placement this afternoon. Remains NPO. G-tube feeding was held overnight. RAYA drain putting out about 100 cc per shift. Received a unit of blood for hemoglobin of 6.6. On 25 mics of propofol. Getting TPN and meropenem. Spoke to the at the bedside. Patient became hypotensive with dialysis yesterday. Levophed had to be given. Only 800 cc were removed yesterday. No hemodialysis today. December 10: ICU . FiO2 35, PEEP 5. Tracheostomy was done yesterday by Dr. Ewing. G-tube feeding was started today at 10 cc an hour. Dietitian following. RAYA drain 12-hour shift overnight put out about 30 cc. Patient hemodialysis today about 1 L removed. Patient has a sacral stage II decub with a dressing. On propofol 20 mics. Spoke to at the bedside. TPN. Meropenem was discontinued yesterday. December 11: ICU. FiO2 35 PEEP of 5. Tracheostomy. NG tube was discontinued. No hemodialysis today. Telemetry shows sinus rhythm. J-tube feeding at 40 cc an hour. TPN was discontinued. Patient has been off propofol also. PICC line in place. Patient had a EEG done today. Spoke to patient's elder daughter at the bedside. May open eyes occasionally. Not really following commands December 12: 73-year-old white male with history of chronic abdominal pain for the last 8 months has been treated with Protonix 40 mg daily for the last 3 months with no improvement. Patient had a 22 pound weight loss in the last [address] of the abdomen and pelvis 3 weeks ago showed thickening of the antral wall with pathological adenopathy posterior to the stomach suspicious of neoplasm. Today the patient underwent elective upper endoscopy to evaluate further, patient received IV sedation by anesthesia endoscope was inserted into the mouth, esophagus was intubated without any difficulty there was evidence of large amount of liquid and solid food noted in the stomach suggestive of gastric outlet obstruction. Scope could not be advanced through the pylorus, however in the prepyloric area there was a large superficial ulceration identified with multiple biopsies were done from this area. The body cardia and fundus could not adequately visualize because of large amount of retained food in the s tomach. Scope was withdrawn back to the stomach and upon careful examination the mucosa of the antrum body and cardia as well as the fundus appeared normal. Procedure was being performed and biopsies were done patient threw up and subsequently became hypoxic there was clearly evidence of witnessed aspiration anesthesia intubated the patient, procedure was terminated, and the patient was transferred to the ICU, this consult was initiated. Patient is now on assist- control rate of 20 tidal volume 500 FiO2 70% PEEP of 10 ABG is pending, earlier ABG showed profound hypoxia patient is on propofol at 50 mcg/kg/min, next ABG is pending. Chest x-ray showed chronic changes without evidence of acute pulmonary disease. 12/14/2023 Patient remains in the ICU, generally weak Patient s/p tracheostomy G-tube in place Patient still has fever and mild tachycardia but tachycardia is improving, leukocytosis improving as well. Hemoglobin 8.1. Creatinine 3.0 and nephrology team on the case. He has mild transaminitis. He was getting Zosyn which is held now, nowCalcitonin is pending 12/14 Patient shon in the ICU, he is still encephalopathic and does not follow command. Neurology service following closely. He is status post tracheostomy. Also J-tube His abdomen looks soft and on exam he has mild coarse secretions. Has a Abarca catheter with clear urine His pro- Calcitonin is still high but trending down 3.0 down to 1.9 No fever this morning WBC slightly less at 16.3 Patient currently off antibiotic He is getting steroids IV Solu-Medrol which might contribute to his leukocytosis. Also he is on IV Keppra by neurologist 12/14 Patient remains confused in the ICU calm, he had a good night per family member and staff. Tracheostomy in place Patient has occasional coughing spells, patient also developed some partial wound dehiscence in his abdomen, surgery team are aware and are going to evaluate the patient Patient also has positive blood culture from 12/13: Gram-positive cocci in clusters. Patient received one-time dose of IV vancomycin. Patient also had fever 2 days ago, leukocytosis and total elevated pro- Calcitonin. Therefore we are going to consult infectious disease team. As his antibiotic Zosyn was stopped few days ago. Currently patient KVO He has good urine output December 16: ICU. Trach. Congested. Requiring suctioning. No hemodialysis today. Getting G-tube feeding at 50 cc an hour. FiO2 30 and a PEEP of 5. On IV Precedex. Eyes open. Does follow commands. Weakness in the limbs. Spoke to at the bedside. Sputum positive for Klebsiella oxytoca and Pseudomonas aeruginosa. December 17: ICU. On trach. Currently cough with increased secretions requiring suctioning. Adding scopolamine patch. Very much clear secretion. CT scan is showing right upper lobe lung abscess. G-tube feeding at 50 cc an hour. Hemodialysis today. RAYA drain putting out about 140 cc a shift. Serous. Has been midline incision wound dehiscence. Wound VAC was placed on it. Stage II ulcer. Patient is on Precedex drip 0.15 mics. Urine output is good about 6200 cc an hour. Spoke to the at the bedside. Patient currently not stable for transfer to LTAC. No limb movements. PT OT on the case. otherwise awake does follow simple commands by face December 18: ICU. Patient seen this afternoon. Because of pain getting IV Dilaudid. No nasal cannula on room air. Does move about his head. Telemetry shows sinus rhythm. FiO2 30 and a PEEP of 5. Patient started on scopolamine patch yesterday has decreased secretions today. Good urine output. Tube feeding at 60 cc an hour. Wound VAC on incisional would be high since in place. RAYA drain continues to make output. No hemodialysis today December 19: ICU. Patient was seen earlier today. FiO2 30 and a PEEP of 5. Sinus rhythm. Awake. Does follow with eyes. Tube feeding got obstructed tube feedings held for now. Increasing oozing from the incision drainage site. at the bedside. Wound VAC remains in place. Good urine output. Dialysis held today. December 20: ICU. Per nephrology no dialysis today. 1 L fluid bolus given. J- tube was replaced over the wire by Dr. Ewing from surgery. On Precedex 0.6 mcg. FiO2 30 and a PEEP of 5 on the vent. RAYA drain putting out of around 100 cc per shift. at the bedside. Drainage through the abdominal incision wound. CT scan abdomen showed tube placement in the small bowel. Stable large right lower quadrant mass with a fluid level. December 21: ICU. No dialysis today. Patient started on trickle feeding through the J-tube yesterday. He started leaking around the J-tube site. Tube feeding was held. Dressings were placed. Wound VAC remains on the incision. Still having output through the RAYA drain. Patient remains on Precedex 0.4 mcg. FiO2 30 and a PEEP of 5. Sinus rhythm. at the bedside. December 22: ICU. Patient was seen this morning today by me. No dialysis today. Patient's and daughter at the bedside. FiO2 30 and a PEEP of 5. Sinus rhythm. Still having significant secretions through the tracheostomy tube. On Precedex 0.4 mcg. Getting D5W IV fluids. Tube feeding remains to be on hold since yesterday. Still output of RAYA drain. Awaiting input from surgery. Discussed with the and daughter. December 23: ICU. Saw the patient this afternoon. Because of good output of urine dialysis has been discontinued. Telemetry shows sinus rhythm. FiO2 30 and a PEEP of 5. RAYA output has been around 8200 cc an hour. Good urine output. Patient does have very slight movement of the limbs. Wound VAC is putting out about 20 cc per shift. Yesterday when trickle feeding was started patient's J- tube drainage also started leaking around the insertion site. Tube feeding was held. Patient remains on IV Zosyn and Precedex at 0.3 mcg. I had a very lengthy discussion with patient's daughter and at the bedside overall guarded prognosis. Later surgery spoke to the family, and then the nurse called me that family was wanting transferred to [facility]. I spoke to Dr. Irby. They felt they could not offer anything more at this point. I did call the [facility] transfer steam shovel operating engineer. Gave them the reason for transfer. Later in the ICU nurse informed me through [employer] that [facility] had declined the transfer. Total time spent today about 50 minutes with over 30 minutes of discussion. December 24: ICU. Patient is doing not too well. Sinus rhythm. Drips include norepinephrine and IV propofol. Surgery did put 2 stitches around the J-tube insertion site. Started on TPN today. FiO2 30 PEEP of 5. Patient became hypothermic put on a Manjit hugger. Also hypoglycemic. Decreased urine output. IV fluids increased. Patient's son was at the bedside. I did speak to patient's eldest daughter outside in the waiting room. Did tell the patient doing very poorly. I did try to call the on the phone number she has gone home. Started an IV antifungal today. December 26, 2023 73-year-old white male with history of chronic abdominal pain for the last 8 months has been treated with Protonix 40 mg daily for the last 3 months with no improvement. Patient had a 22 pound weight loss in the last [address] of the abdomen and pelvis 3 weeks ago showed thickening of the antral wall with pathological adenopathy posterior to the stomach suspicious of neoplasm. Today the patient underwent elective upper endoscopy to evaluate further, patient received IV sedation by anesthesia endoscope was inserted into the mouth, esophagus was intubated without any difficulty there was evidence of large amount of liquid and solid food noted in the stomach suggestive of gastric outlet obstruction. Scope could not be advanced through the pylorus, however in the prepyloric area there was a large superficial ulceration identified with multiple biopsies were done from this area. The body cardia and fundus could not adequately visualize because of large amount of retained food in the stomach. Scope was withdrawn back to the stomach and upon careful examination the mucosa of the antrum body and cardia as well as the fundus appeared normal. Procedure was being performed and biopsies were done patient threw up and subsequently became hypoxic there was clearly evidence of witnessed aspiration anesthesia intubated the patient, procedure was terminated, and the patient was transferred to the ICU, this consult was initiated. Patient is now on assist- control rate of 20 tidal volume 500 FiO2 70% PEEP of 10 ABG is pending, earlier ABG showed profound hypoxia patient is on propofol at 50 mcg/kg/min, next ABG is pending. Chest x-ray showed chronic changes without evidence of acute pulmonary disease. 12/27/2023 Patient is seen and evaluated with family at bedside; remains in the ICU intubated and mechanically ventilated. - ABG showed a pO2 of 99 pCO2 31 pH of 7.44. -- Remains on Eraxis daptomycin and Zosyn patient is intermittently requiring Dilaudid, Ativan does not seem to help his agitation and restlessness. -- Continues to have leakage around the jejunostomy tube, and patient is undergoing the J-tube exchange today. Family is at bedside, seems to be quite anxious about his overall condition, and I explained to the that we are doing the best we can considering his critical illness situation and critical illness polyneuropathy. Patient is profoundly weak, and weaning the patient from mechanical ventilation is almost impossible. At least not at this point yet WBC count is 10.9 hemoglobin is 8.1 basic metabolic profile is normal BUN is 46 creatinine 1.90 patient has been off hemodialysis since the . Chest x- ray continues to show stable findings with right upper lobe opacity and right lower lobe opacity and possibly a small right-sided pleural effusion ----Continue ventilatory support, now on IMV mode rate of 16 with pressure support of 14 Continue Precedex and use Dilaudid 0.5 mg every 2-3 hours as needed. Nutritional support patient is now on TPN, Possible J-tube changed today for J- tube malfunction Continue antibiotics including daptomycin and Zosyn, Eraxis was added by infectious disease 12/28/2023 the patient is seen and evaluated in room at bedside; continues to be afebrile, the patient is on the ventilator through the trach FiO2 is currently stable at 30% no significant pleural effusion clinically patient on requiring any pressor support still having drainage around his jejunostomy tube patient dialysis catheter has been discontinued. Patient white count normalized to 7.6, creatinine is 1.51 patient with pneumonia with a sputum showing Citrobacter and Pseudomonas aeruginosa, the patient sputum repeat is still growing Citrobacter and Pseudomonas sensitive to the Pseudomonas is pending continue with Zosyn -patient did have a positive blood culture with staph epi that was oxacillin resistant as the patient did have a PICC line and the dialysis catheter he is on daptomycin repeat blood culture currently growing oxacillin sensitive staph epi, the patient dialysis catheter has been discontinued Has been sent for the culture -patient also have significant excoriation around his jejunostomy tube site which is still leaking Eraxis was added which will be continued as the patient fever pattern has improved and the patient white count has normalized once again discussed with the nursing staff to apply Triad cream which was discussed yesterday but not applied and monitor clinical course closely 12/29/2023 Patient is seen and evaluated with family members at bedside; remains intubated and mechanically ventilated -- ABG showed a pO2 of 105 pCO2 31 pH of 7.45. Remains on Precedex; multiple antibiotics and antifungal including Eraxis daptomycin and Zosyn. -- chest x-ray is showing improvement in his right upper lobe airspace disease/pulmonary abscess. Right lower lobe seems about the same with chronic opacity and possibly some small right-sided pleural effusion. --Family is at bedside, patient is arousable but does not follow any instructions. Gets extremely restless and agitated easily hence patient is receiving Dilaudid which seems to be working much better for this patient than benzodiazepines --possibly transfer the patient to a select care specialty. 12/30/2023 Evaluated in follow-up in the intensive care unit. He remains on the mechanical ventilator. Status post tracheostomy. There has been a decrease in the amount of leakage around the J-tube site he continues on a gravity flow. TPN is infusing tube feedings remain on hold at this time. No bowel movement reported for the last 5 days. X-ray today reveals extensive pleural parenchymal opacities throughout the right with at least a moderate pleural effusion. Mild patchy densities left mid and lower lung are also similar. Blood work reveals a white blood cell count 11.5, hemoglobin 8.1, platelet count of 78, sodium 142, potassium 4.2, BUN of 42, creatinine of 1.22, Phos of 2.3, magnesium 1.9. Patient continues on IV anidulafungin IV Zerbaxa IV daptomycin. Patient is currently sedated with propofol and also Precedex which is currently on hold at this time. December 31, 2023: ICU. Patient continues to do poorly. On propofol 35 mics. Also getting IV Dilaudid and IV Ativan.. Telemetry shows sinus rhythm. J-tube feeding has been discontinued. Significant output through the Abarca bag and around the G-tube site. Patient also putting out through the RAYA drain on the right side. Getting TPN and lipids. Patient is antimicrobial include iv aniedulefungin, IV ceftolozane/tazobactam, IV daptomycin Advance care planning [October 31, 2023] I met with patient's at the bedside. Went through in detail with patient is overall very poor clinical status. Chances of any meaningful recovery next to minimal. I also did mention that patient in my opinion was not stable to go to chronic ventilator setting. I suggested comfort care/hospice. I did not feel and why all honesty that patient is benefiting any further from the treatment we are giving him in fact causing probably more suffering. I also spoke to patient's daughter outside in the waiting room. Total time spent about 50 minutes with over 30 minutes of discussion. Later I called Dr. Luther JIMENEZ the parcel post carrier after he received a text that family was expressing that some physician expressed he was doing better and giving hope. I spoke to nurse Lemos in the evening and she and Dr. JIMENEZ did go and talk to patient's family at the bedside later. January 01, 2024: ICU. FiO2 30 and a PEEP of 5. Continues to have increased drainage at the G-tube site. Wound VAC in place over the incision. RAYA drain continues to put out excretions. Good urine output. Drips include IV propofol at 20 mics, also getting IV Ativan and Dilaudid. Patient also keeping getting TPN lipids. Spoke to the patient's at the bedside. No further questions. I did speak to Dr. Irby from general surgery. Hence it is both our impression again that changing the tube will not make any difference to the bigger picture. And probably futile. Dr. Irby will be speaking to the family today. David from administrator social welfare did ask about of family meeting. I did reiterate that I spoken at length to the a few times and also the daughter. Dr. Jimenez also spoke to the and Dr. Irby will be speaking with the today. Prognosis remains to be very poor. I did tell the in my opinion probably the patient is not r a candidate for long-term facility. Will parcel post carrier Dr. Jimenez determine if the patient is a candidate for long-term chronic ventilator facility. January 02, 2024: ICU. FiO2 30 PEEP of 5. Telemetry sinus rhythm. Drips include propofol at 20 mics. Patient getting TPN lipids. Receiving 1 unit of packed red blood cell. Patient was having a breakdown around the tracheostomy stoma site. With a cuff leak. G-tube site is continues to have increasing output. Wound VAC in place. RAYA drains also having increasing output. Patient sister and daughter from [place] from out of town. Earlier they spoke at length with Dr. alford from general surgery. Prognosis remains poor. January 03, 2024: ICU. FiO2 30 PEEP of 5. On propofol. 50 mics. Getting TPN lipids. Sinus rhythm. Wound VAC in place. Drainage around the j-tube site. RAYA drain continues to drain. Patient somewhat sedated. at the bedside. Later administrator social welfare David inform me that the surgical team Dr. Irby has suggested possible you have [facility], to which family is trying to obtain transferred to. Per Dr. Jimenez note patient has been decline by long-term care twice. Prognosis remains poor. at the bedside. Had no questions. Brother Nathan is present. January 04, 2024: ICU. FiO2 30 PEEP of 5. Propofol was held this morning. Getting TPN lipids. Sinus rhythm. Wound VAC remains in place. Continues to have drainage around the J-tube. RAYA drain continues to have output. at the bedside. She had no questions. Antibiotics in place. January 05, 2024: ICU. FiO2 30 PEEP of 5. Audibly sounding congested. Getting TPN lipids. Sinus rhythm. Wound VAC in place. Drainage around J-tube site. RAYA output continues. No family at bedside. Getting antibiotics. Lethargic January 06, 2024: ICU. FiO2 30 PEEP of 5. Patient is been off propofol since yesterday. Does move his head about. Try to open his eyes sometimes. Sinus rhythm. Blood pressure is running high yesterday. Started on Cleviprex. Hydralazine is being added. Continue to get TPN lipids. J-tube site remains excoriated. Wound VAC in place. RAYA output about 40 to 50 cc is a 12-hour shift. Patient elder daughter at the bedside. Eraxis was discontinued on January 02. Daptomycin is being discontinued by ID. Continue ceftolo'szone. CT abdomen pelvis done today: 3.1 cm organized fluid collection within the rectovesicular space concerning for abscess. No change in right upper lung 4.9 cm fluid collection with a fluid level. For possible pulmonary abscess. Moderate size right lung base multiloculated hydropneumothorax possibly abscess. Additional areas of air bronchograms. January 07, 2024: ICU. FiO2 30 PEEP of 5. Patient was taken down for pigtail drainage of the right lung abscess. About 200 cc of pus was obtained. Nurse informed me when they told him about for the procedure a lot of pus gushed out from the tracheostomy site. Dr. Love at the bedside did a bronchoscopy. Some pus was aspirated. No obvious fistula was noted. Patient is being back on Cleviprex drip. TPN lipids. January 08, 2024: ICU. Patient was having severe bouts of coughing. Unable to maintain ventilation. Patient was put on Nimbex drip and propofol drip. TPN lipids continue. Has a right chest wall pigtail catheter 90 cc output in 12- hour shift. Drainage from around the J-tube site. RAYA drain continues Ahmet to have an output. Abdominal wound is high since with the wound VAC in place. Patient sedated. January 09, 2024: ICU. Patient is off propofol and Cleviprex. Does open eyes. RAYA drain. About 40 cc last 24 hours. J-tube site continues to have increased output. Requiring dressing change every so often. Wound VAC in place. Patient getting Dilaudid and Ativan. Telemetry shows sinus rhythm. 40 cc out of the pigtail drainage. Patient started on ciprofloxacin and tobramycin. Remains on TPN and lipids. Patient's eldest daughter and at the bedside. No new questions. January 10, 2024: ICU. Overnight patient had become asynchronous. Had to be put on Precedex drip. Hemoglobin dropped down to 6.6. Monitor blood ordered. RAYA output about 100 cc last 24 hours. Wound VAC remains in place. TPN lipid continues. Patient also has a leak in the right pigtail catheter. Sinus rhythm. Continues to have increased secretion at the G-tube site. Ventilator FiO2 30 and a PEEP of 5. at the bedside. Had no further questions. January 11, 2024: ICU. Patient remains on IV Precedex. TPN.'s RAYA output over 30 cc last 24 hours. Wound VAC remains in place. Sinus rhythm. FiO2 30 PEEP of 5. Pigtail with very little output. Spoke to Dr. Love who only spoke to the patient's at length. Gnosis poor. When I walked in patient's 2 daughters and the present. is very tearful crying hugging the patient. The daughter had no further questions January 12, 2024 Ahmet: ICU. Continues on IV Precedex. Getting TPN lipids. Wound VAC in place. Sensitive. FiO2 30 and a PEEP of 5. Patient's at the bedside. Had no questions. January 13, 2024: ICU. FiO2 30 PEEP of 5. Remains on Precedex 0.8 mg. Eyes open. Sometimes does track with head. Not moving limbs. Some decrease in output from the G-tube site. Wound VAC putting out about 100 cc every 12 hours. RAYA drain about 100 cc every [address] Russ met with the family earlier today. Patient's been made DNR. Telemetry sinus rhythm. Patient's and daughter at bedside. They have no questions January 14, 2024: ICU. FiO2 30. PEEP of 5. Patient is has eyes open and tracking. Urine output about 100 cc an hour. NG site output looks like gastric contents. RAYA site about 50 cc in the last 12 hours. Telemetry sinus rhythm. and daughter have asked for hospice consultation for informational visit. They want to use [facility]. I sat with them and the nurse and a full expression of the hospice involved involved. Several questions answered. Daughter does express that she would like to take the patient home. The other sibling will be coming on from [place] on Saturday. They want to hold on at least until then. January 15, 2024: ICU. FiO2 30 and a PEEP of 5. Getting CPAP today. Asynchronous better. J-tube site continues to have increase secretions. Sinus rhythm. Awake. Does move his head possibly to command. Remains on Precedex. Getting Dilaudid. Fair urine output. Has a air leak in the pigtail. Minimal output through the chest tube. RAYA drain continues to have an output. at the bedside. January 16, 2024: ICU. On the ventilator FiO2 30 and a PEEP of 5. Pressure support mode. Wound VAC remains in place. J-tube site continues to have output. RAYA drain putting out output. Remains on pressors Precedex and getting Dilaudid. Antibiotics per ID. Patient being planned to go home tomorrow with home hospice. at the bedside. Had no further questions. Being followed by administrator social welfare David and home hospice team from [facility] The plan for tomorrow currently is as follows: -Hospice arranging for transport with portable ventilator, to home with family -Antibiotics as discussed with ID will be discontinued -Wound VAC to be removed prior to discharge per surgery -RAYA drain to remain in place with dressing changes at the J-tube site. Dressing changes at the incision site per surgery. -TPN lipids will be discontinued prior to discharge -Patient to be taken off Precedex by r parcel post carrier January 21, 2024: ICU. Ventilator FiO2 30 and a PEEP of 5. Precedex drip. Sinus rhythm. Does wake up and follow commands. Weak in the limbs. Very little output through the RAYA drain. Wound VAC in place. Requiring Dilaudid for pain control close to every 2 hours. Over the weekend patient and family dec ided not for hospice. Patient is now full code instructions. Looking at long- term placement. Patient on tobramycin and ciprofloxacin and Diflucan per ID. Patient and daughter at the bedside.. Physical therapy in the room for passive movements. Family being educated. Since yesterday patient has been on pressure support./CPAP. Getting TPN lipids. January 22, 2024: ICU. Patient was on CPAP this morning. Plan was to take him to trach only this afternoon. Getting IV Precedex. Awake. Moves his head to command. Was able to move his right arm. Wound VAC remains in place. Right c hest tube/pigtail catheter in place. Some air leak. Minimal output from the right RAYA drain. Secretions persist through the left J-tube site. at the bedside. Spoke to the administrator social welfare David. Looking into long-term placement. Past medical history to include: GERD Social history: . No smoking. Physical examination: VITAL SIGNS: 98.2, 86, 28, 136 x 94, 98% GENERAL: Eyes open, follows commands moving his head EYES: Pupils equal. , tracking Conjunctiva edouard l. HEENT: External appearance of nose and ears normal, tracheostomy-. NECK: JVD unable to assess; masses not palpable. HEART: First and second heart sounds are normal; edema, present LUNGS: Respiratory rate increased, decreased breath sounds right chest wall pigtail catheter ABDOMEN: Soft, some tenderness. Liver spleen not palpable, no masses palpable..jejunostomy tube-dressing in place, . RAYA drain. Incision with stitches with - wound VAC PSYCH: Unable to assess NEURO: Eyes open. Attempts to talk. Moves his head tracking. Some movement in the right arm. Able to raise it off the bed and probably INVESTIGATIONS, reviewed in the clinical context: January 21: White count 14.9 hemoglobin 7.9 platelets 399 potassium 3[address] abdomen pelvis [January 05]: 3.1 cm organized fluid collection within the rectovesicular space concerning for abscess. No change in right upper lung 4.9 cm fluid collection with a fluid level. For possible pulmonary abscess. Moderate size right lung base multiloculated hydropneumothorax possibly abscess. Additional areas of air bronchograms. January 05: White count 10.6 hemoglobin 7.6 platelets 111 sodium 137 potassium 3.5 BUN 44 creatinine 0.95 January 03: White count 13.4 hemoglobin 8.1 platelets 95 potassium 5.2 creatinine 1.1 albumin 1.8 Sputum culture [December 24] Citrobacter freundii, Pseudomonas aeruginosa Blood culture [December 24] Staphylococcus pettenkoferi December 24: White count 1.5 hemoglobin 8.2 platelets 106 potassium 3.8 BUN [address] chest abdomen without contrast [December 16] right upper lung cavitary lesion with air-fluid level in the posterior aspect and a larger cavitary lesion possibly within the lung parenchyma itself. Extending down towards the diaphragm additional airspace opacities in the left lung base. December 09: White count 26.1 hemoglobin 8.6 platelets 154 potassium 4.1 BUN 86 creatinine 3.31. Hemoglobin this morning was 6.6 prior to transfusion EEG-evidence of generalized cerebral dysfunction and sporadic intermittent higher amplitude sharply contoured waves mainly bifrontal. Showing cortical irritability. 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 Serosal fibrous adhesions. Viable margins. Sputum culture: [November 25]: Citrobacter freundii. Pseudomonas aeruginosa November 20: White count 14.4 hemoglobin 8.8 platelets 229 potassium 4.1 BUN [address] scan abdomen [November 19] possible small bowel obstruction Stool: C. difficile negative November 15: WBC 13 hemoglobin 7.7 platelets 248 potassium 4.3 creatinine 0.87 2D echo: EF 55 to 60%. Kidneys bladder: Unremarkable November 13: White count 12 hemoglobin 6.9 platelets 276 potassium 4.4 creatinine 1.21 magnesium 1.8 iron 6 TIBC 365% saturation 1.64 transferrin 261 ferritin 34.6 B12 569 folate 4.4 November 11: Creatinine 0.86 EGD: Large amount of retained solid liquid food noted in the stomach. Large superficial gastric antral ulceration involving most of the antrum extending into the pylorus causing pyloric stenosis. Biopsies were obtained. Chest x-ray film personally reviewed by me-scattered infiltrates Assessment plan: -Aspiration and gram-negative bacterial pneumonia a bilateral initially from retained gastric contents mostly food and liquids, causing acute hypoxic respiratory failure: On presentation: Subsequent bacterial pneumonia and lung abscess sputum culture November 25: Citrobacter freundii, Pseudomonas aeruginosa. December 13: Klebsiella oxytoca, Pseudomonas aeruginosa IV meropenem-, IV Zosyn.IV ceftolozane/tazobactam, IV daptomycin, tobramycin- all discontinued Currently getting IV ciprofloxacin. , Tobramycin, Diflucan -Had became asynchronous with the ventilator. On Precedex drip -Pain, multifactorial Getting Dilaudid every 2 as needed -Breakdown of tracheostomy stoma site. Dressing in place Being followed by parcel post carrier -Sepsis with septicemia from above Patient received multiple antibiotics -Right l lung abscess, pigtail catheter placed January 07, 2024. Initially about 200 cc of pus obtained. During the procedure large amount of pus poured out of the tracheostomy site when patient was rolled on the left side. Status post bronchoscopy with some lavage on 01/07/2024 - lung abscess larger 1 on the right side-patient cultures are growing Pseudomonas and Klebsiella oxytoca: , Received other antibiotics. Currently on ciprofloxacin and tobramycin -Acute pulmonary edema and fluid overload from hypoalbuminemic state and fluids from IV.:: Has been getting Lasix and dialysis: Both held -Altered mentation. Possibly encephalopathy. Could be delirium.: Some improvement CT brain [December 06] nothing acute Neurology following EEG-evidence of generalized cerebral dysfunction and sporadic intermittent higher amplitude sharply contoured waves mainly bifrontal. Showing cortical irritability. Keppra was started on December 07 -Critical care poly- Pedro neuropathy: Slow to respond PT OT -Gallstones, asymptomatic -Small l bowel perforation at site of jejunostomy tube tip with balloon..: Portion of small bowel resected. On November 24. New J-tube was placed.- drainage to gravity:-Now discontinued December 19: J-tube blocked. J-tube replaced on December 20 over wire December 21: Leaking around the J-tube site. Feeding held December 23: J feeding was started yesterday evening but again started leaking increasingly around the J-tube site-feeding held again December 24: J-tube feeding has been held. Patient is currently having increased drainage from the J-tube site -Acute kidney injury. Possible ATN from hypotensive shock: Resolved Renal ultrasound unremarkable. Started on renal replacement therapy on November 28. Last hemodialysis on December 17. Being followed by an nephrology. Good urine output. -Nutrition Jejunostomy tube placed November [address] Ewing Received TPN-this was discontinued. TPN lipids restarted on December 24 -Midline abdominal incision wound dehiscence Wound VAC placed -Acute recurrent atrial fibrillation-converted to sinus rhythm Received IV amiodarone. Cardiology following -Acute hypoxic respiratory failure from aspiration pneumonia, status post ventilator assisted: Reintubated November 25. FiO2 35 PEEP of 5 Tracheostomy tube-by Dr. Zepeda on December 09 -Septic shock, recovered -Hypertension, recurrent Had received Cleviprex. Hydralazine added -Intermittent hypotension: Corrected Intermittent use of Levophed. 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 Also anemia of blood draw. Iron deficiency anemia Received total of 6 units of blood IV iron. -Severe thrombocytopenia. Would consider coagulation disorder secondary to infection., In the setting of underlying lymphoma.: Fluctuating with infection Hematology following. -Acute blood loss anemia, -Sacral stage II decub ulcer Dressing in place -Hypokalemia, multiple causes -Hypoglycemia: Corrected -GERD PPI -Acute diarrhea secondary to tube feeding.: Resolved C. difficile ruled out. -Large superficial gastric antral ulceration involving the gastric antrum extending into the pylorus with gastric outlet obstruction. 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 -DNR made on January 12. Now full code with instructions on January 17 On Precedex. IV ciprofloxacin and IV tazobactam. TPN lipids. director workers compensation looking into long-term placement. Spoke to the at the bedside. Continue treatment plan. Past Medical History Past Medical History: GERD/Reflux History of Any Multi-Drug Resistant Organisms: None Reported Past Surgical History: Heart Catheterization Additional Past Surgical History / Comment(s): colonsocopy,spinal injection, Past Anesthesia/Blood Transfusion Reactions: No Reported Reaction Past Psychological History: No Psychological Hx Reported Smoking Status: Never smoker Past Alcohol Use History: None Reported Past Drug Use History: None Reported
[2024-01-22] MEDS: 1: MVI, ADULT NO.4 WITH VIT K 10 ML, TRACE (CONC-1ML/DOSE) 1 ML, PARENTERAL ELECTROLYTES IV SCH (16:39)
[2024-01-22] MEDS: TOBRAMYCIN PER PHARMACY MISCELLANE SCH (17:25)
[2024-01-22 17:49] LABS: Glucose,Whole Blood 134 mg/dL (70-110)
[2024-01-22 23:39] LABS: Glucose,Whole Blood 141 mg/dL (70-110)
[2024-01-23 05:46] LABS: Glucose,Whole Blood 190 mg/dL (70-110)
[2024-01-23 08:09] LABS: ALT 34 U/L (4-49); AST 41 U/L (17-59); African American GFR (CKD) >90 (>60 ml/min/1.73 sqM); Albumin 2.5 g/dL (3.5-5.0); Alkaline Phosphatase 212 U/L (38-126); Anion Gap 6 mmol/L; Blood Urea Nitrogen 22 mg/dL (9-20); Calcium 7.6 mg/dL (8.4-10.2); Carbon Dioxide 23 mmol/L (22-30); Chloride 102 mmol/L (98-107); Glucose 153 mg/dL (74-99); Magnesium 1.7 mg/dL (1.6-2.3); Non-African American GFR(CKD) >90 (>60 ml/min/1.73 sqM); Phosphorus 3.6 mg/dL (2.5-4.5); Potassium 3.7 mmol/L (3.5-5.1); Sodium 131 mmol/L (137-145); Total Bilirubin 0.8 mg/dL (0.2-1.3); Total Protein 6.8 g/dL (6.3-8.2)
--- NOTE | 2024-01-23 08:25 | P.PN ---
Subjective Progress Note Date: 01/22/24 Principal diagnosis: Reason for follow-up is pneumonia and bacteremia Patient is 73-year-old with male initial presentation to the hospital on 11/11/2021 for after the patient did have aspiration while undergoing elective endoscopy, diagnosed with a non-Hodgkin of, subsequently did have explained laparotomy for perforated small bowel abdominal washout and feeding jejunostomy tube patient did require dialysis catheter placement for dialysis during this hospital stay and tracheostomy for respiratory failure, infectious was consulted for fever. On today's evaluation that is 01/22/2024, patient has been afebrile, patient is breathing comfortably and is currently on trach collar patient is hemodynamically stable not requiring any pressor support no vomiting diarrhea any changes reported by nursing staff. Patient white count is 14.9, creatinine 0.64 tobramycin trough is on the high side Objective - Vital Signs Vital signs: Vital Signs Temp 98.2 F 01/22/24 12:00 Pulse 82 01/22/24 15:16 Resp 26 H 01/22/24 15:00 BP 137/83 01/22/24 15:00 Pulse Ox 100 01/22/24 15:00 FiO2 40 01/22/24 13:00 Intake & Output 01/21/24 01/22/24 01/22/24 18:59 06:59 18:59 Intake Total 1700.00 3281.989 1270 Output Total 1605 1365 1280 Balance 95.00 1916.989 -10 Weight 110.8 kg Intake: IV 1600 2000 1170 0.9 Normal Saline @ KVO 110 120 40 Fluconazole in NaCl,Iso- 100 Osm 200 mg In Saline 1 100ml.bag @ 100 mls/hr IVPB DAILY [facility] Rx#: [id number] Magnesium Sulfate-D5w Pmx 100 1 gm In Dextrose/Water 1 100ml.bag @ 100 mls/hr IVPB ONCE ONE Rx#: [id number] Potassium Chloride 10 meq 100 In Water For Injection 1 100ml.bag @ 100 mls/hr IVPB Q1H [facility] Rx#: [id number] Potassium Chloride 10 meq 100 In Water For Injection 1 100ml.bag @ 100 mls/hr IVPB Q1H [facility] Rx#: [id number] Sodium Chloride 0.9% 1, 500 600 200 000 ml @ 50 mls/hr IV . Q20H [facility] Rx#:[id number] TPN 990 1080 630 Tobramycin Sulfate 600 mg 100 In Sodium Chloride 0.9% 100 ml @ 115 mls/hr IVPB Q48H [facility] Rx#:[id number] Intake, IV Titration 100.00 1281.989 100 Amount Dexmedetomidine/0.9% NaCl 100.00 249.989 100 (Pmx) 400 mcg In Empty Bag 1 bag @ 0.2 MCG/KG/HR 5.2 mls/hr IV .[id number] [facility] Rx#:[id number] Mvi, Adult No.4 with Vit 1032 K 10 ml Trace (Conc-1Ml/ Dose) 1 ml Parenteral Electrolytes 20 ml Sodium Acetate 16 meq Potassium Chloride 10 meq Magnesium Sulfate gm 0.5 gm Sodium Phosphate 12 mmol In Amino Acids 5 %/ Dextrose 20 % 1,000 ml @ 90 mls/hr IV .BY DURATION [facility] Rx#:[id number] Output: Chest Tube Drainage 30 30 Chest Tube Right 30 30 Drainage 80 80 Medial Abdomen 0 0 Right Abdomen 50 80 Right Upper Posterior 30 Chest Urine 1525 1255 1250 Other: Voiding Method Indwelling Catheter Indwelling Catheter Indwelling Catheter ABP, PAP, CO, CI - Last Documented Arterial Blood Pressure 173/76 - Exam Elderly male lying in bed intubated through the trach in no distress No tachypnea or accessory muscle respiration Unlabored breathing - Labs CBC & Chem 7: 01/22/24 05:32 01/23/24 07:10 Labs: Abnormal Lab Results - Last 24 Hours (Table) 01/21/24 01/21/24 01/22/24 Range/Units 17:55 23:24 05:32 WBC (3.8-10.6) k/uL RBC (4.30-5.90) m/uL Hgb (13.0-17.5) gm/dL Hct (39.0-53.0) % RDW (11.5-15.5) % Sodium 130 L (137-145) mmol/L BUN 25 H (9-20) mg/dL Creatinine 0.64 L (0.66-1.25) mg/dL Glucose 150 H (74-99) mg/dL POC Glucose (mg/dL) 165 H 169 H (70-110) mg/dL Calcium 7.3 L (8.4-10.2) mg/dL Alkaline Phosphatase 184 H (38-126) U/L Albumin 2.3 L (3.5-5.0) g/dL 01/22/24 01/22/24 01/22/24 Range/Units 05:32 05:49 11:39 WBC 14.9 H (3.8-10.6) k/uL RBC 2.68 L (4.30-5.90) m/uL Hgb 7.9 L (13.0-17.5) gm/dL Hct 24.6 L (39.0-53.0) % RDW 17.1 H (11.5-15.5) % Sodium (137-145) mmol/L BUN (9-20) mg/dL Creatinine (0.66-1.25) mg/dL Glucose (74-99) mg/dL POC Glucose (mg/dL) 174 H 180 H (70-110) mg/dL Calcium (8.4-10.2) mg/dL Alkaline Phosphatase (38-126) U/L Albumin (3.5-5.0) g/dL Assessment and Plan (1) Sepsis Current Visit: Yes Status: Acute Code(s): A41.9 - SEPSIS, UNSPECIFIED ORGANISM SNOMED Code(s): 69176340 (2) Pneumonia Current Visit: Yes Status: Acute Code(s): J18.9 - PNEUMONIA, UNSPECIFIED ORGANISM SNOMED Code(s): 887521688 (3) Bacteremia Current Visit: Yes Status: Acute Code(s): R78.81 - BACTEREMIA SNOMED Code(s): 5291694 Plan: 1patient with complicated pneumonia and lung abscess on the CT status post drainage catheter placement by interventional radiology subsequently did have purulent pleural fluid which has been cultured did have a chest tube and is growing Pseudomonas with slightly different sensitivity from the sputum Pseudomonas aeruginosa. 2-patient also have evidence of retro vesicular abscess on the CT abdominal pelvis, this has been discussed with the surgical team on the case in person however mention patient would not be able to tolerate any further surgery. 3patient CT chest also showed evidence of pulmonary abscess status post chest tube placement, pleural fluid cultures are growing Pseudomonas aeruginosa that is sensitive to Zerbaxa as well as tobramycin and Cipro and also growing Alejandra albicans 4patient to continue with, Cipro and Diflucan, we will discontinue tobramycin as a trough is high to decrease risk of nephrotoxicity though creatinine is normal and monitor clinical course closely Dictation was produced using [employer] software. please excuse any grammatical, word or spelling errors.
[2024-01-23 12:28] LABS: Glucose,Whole Blood 164 mg/dL (70-110)
[2024-01-23] MEDS: POTASSIUM CHLORIDE 10 MEQ in WATER FOR INJECTION 1 100ML.BAG IVPB SCH (13:09)
[2024-01-23] MEDS ORDERED: TOBRAMYCIN TROUGH DUE 1 EACH MISC MISCELLANE ONE (13:30)
--- NOTE | 2024-01-23 13:55 | P.PN ---
Subjective Progress Note Date: 01/23/24 Principal diagnosis: Reason for follow-up is pneumonia and bacteremia Patient is 73-year-old with male initial presentation to the hospital on 11/11/2021 for after the patient did have aspiration while undergoing elective endoscopy, diagnosed with a non-Hodgkin of, subsequently did have explained laparotomy for perforated small bowel abdominal washout and feeding jejunostomy tube patient did require dialysis catheter placement for dialysis during this hospital stay and tracheostomy for respiratory failure, infectious was consulted for fever. On today's evaluation that is 01/23/2024, Patient is afebrile this morning patient has been switched over to trach collar and seem to be breathing comfortably he is hemodynamically stable for the blood pressure is on the higher side and is on Cleviprex no vomiting or diarrhea has been reported. Patient tobramycin remains 3.1 creatinine 0.67 Objective - Vital Signs Vital signs: Vital Signs Temp 99.3 F 01/23/24 12:00 Pulse 80 01/23/24 13:00 Resp 28 H 01/23/24 13:00 BP 151/109 01/23/24 13:00 Pulse Ox 99 01/23/24 13:00 FiO2 40 01/23/24 12:00 Intake & Output 01/22/24 01/23/24 01/23/24 18:59 06:59 18:59 Intake Total 2290 3444.400 1154.13 Output Total 2330 1810 501 Balance -40 1634.400 653.13 Weight 108.3 kg Intake: IV 2190 2300 1063 0.9 Normal Saline @ KVO 60 120 60 Ciprofloxacin/Dextrose 400 Pmx 400 mg In Dextrose/ Water 1 200ml.bag @ 200 mls/hr IVPB Q8H [facility] Rx#: [id number] Fat Emulsion 20% 250 ml 63 In Empty Bag 1 bag @ 21 mls/hr IV TuThSa@0900 [facility] Rx#:[id number] Fluconazole in NaCl,Iso- 200 100 Osm 200 mg In Saline 1 100ml.bag @ 100 mls/hr IVPB DAILY [facility] Rx#: [id number] Magnesium Sulfate-D5w Pmx 100 1 gm In Dextrose/Water 1 100ml.bag @ 100 mls/hr IVPB ONCE ONE Rx#: [id number] Potassium Chloride 10 meq 200 100 In Water For Injection 1 100ml.bag @ 100 mls/hr IVPB Q1H [facility] Rx#: [id number] Sodium Chloride 0.9% 1, 550 600 300 000 ml @ 50 mls/hr IV . Q20H [facility] Rx#:[id number] TPN 1080 1080 540 Intake, IV Titration 100 1144.400 91.13 Amount Dexmedetomidine/0.9% NaCl 100 185.900 91.13 (Pmx) 400 mcg In Empty Bag 1 bag @ 0.2 MCG/KG/HR 5.2 mls/hr IV .[id number] [facility] Rx#:[id number] Mvi, Adult No.4 with Vit 958.5 K 10 ml Trace (Conc-1Ml/ Dose) 1 ml Parenteral Electrolytes 20 ml Sodium Acetate 34 meq Potassium Chloride 16 meq Magnesium Sulfate gm 0.5 gm Sodium Phosphate 9 mmol In Amino Acids 5 %/ Dextrose 20 % 1,000 ml @ 90 mls/hr IV .BY DURATION [facility] Rx#:[id number] Output: Chest Tube Drainage 30 Chest Tube Right 30 Drainage 135 Right Abdomen 80 Right Upper Posterior 55 Chest Urine 2300 1675 500 Stool 1 Other: Voiding Method Indwelling Catheter Indwelling Catheter Indwelling Catheter # Bowel Movements 1 ABP, PAP, CO, CI - Last Documented Arterial Blood Pressure 173/76 - Exam GENERAL DESCRIPTION: An elderly male lying in bed in no distress RESPIRATORY SYSTEM: Unlabored breathing , decreased breath sounds at bases HEART: S1 S2 regular rate and rhythm , ABDOMEN: Soft , no tenderness EXTREMITIES: No edema feet - Labs CBC & Chem 7: 01/22/24 05:32 01/23/24 07:10 Labs: Abnormal Lab Results - Last 24 Hours (Table) 01/22/24 01/22/24 01/22/24 Range/Units 15:19 17:46 23:38 Sodium (137-145) mmol/L BUN (9-20) mg/dL Glucose (74-99) mg/dL POC Glucose (mg/dL) 134 H 141 H (70-110) mg/dL Calcium (8.4-10.2) mg/dL Alkaline Phosphatase (38-126) U/L Albumin (3.5-5.0) g/dL Tobramycin Trough 7.7 H* ug/mL 01/23/24 01/23/24 01/23/24 Range/Units 05:45 07:10 12:27 Sodium 131 L (137-145) mmol/L BUN 22 H (9-20) mg/dL Glucose 153 H (74-99) mg/dL POC Glucose (mg/dL) 190 H 164 H (70-110) mg/dL Calcium 7.6 L (8.4-10.2) mg/dL Alkaline Phosphatase 212 H (38-126) U/L Albumin 2.5 L (3.5-5.0) g/dL Tobramycin Trough ug/mL Assessment and Plan (1) Sepsis Current Visit: Yes Status: Acute Code(s): A41.9 - SEPSIS, UNSPECIFIED ORGANISM SNOMED Code(s): 08313968 (2) Pneumonia Current Visit: Yes Status: Acute Code(s): J18.9 - PNEUMONIA, UNSPECIFIED ORGANISM SNOMED Code(s): 615904680 (3) Bacteremia Current Visit: Yes Status: Acute Code(s): R78.81 - BACTEREMIA SNOMED Code(s): 2605520 Plan: 1patient with complicated pneumonia and lung abscess on the CT status post drainage catheter placement by interventional radiology subsequently did have purulent pleural fluid which has been cultured did have a chest tube and is growing Pseudomonas with slightly different sensitivity from the sputum Pseudomonas aeruginosa. 2-patient also have evidence of retro vesicular abscess on the CT abdominal pelvis, this has been discussed with the surgical team on the case in person however mention patient would not be able to tolerate any further surgery. 3patient CT chest also showed evidence of pulmonary abscess status post chest tube placement, pleural fluid cultures are growing Pseudomonas aeruginosa that is sensitive to Zerbaxa as well as tobramycin and Cipro and also growing Alejandra albicans 4patient currently being treated with, Cipro and Diflucan, will benefit from a repeat CT chest abdominal pelvis to make sure resolution of the abscess before discontinuation of antibiotic Dictation was produced using [employer] dictation software. please excuse any grammatical, word or spelling errors. Time with Patient: Less than 30
[2024-01-23 17:59] LABS: Glucose,Whole Blood 147 mg/dL (70-110)
--- NOTE | 2024-01-23 19:25 | P.PN ---
Subjective Progress Note Date: 01/23/24 January 22, 2024: ICU. Patient was on CPAP this morning. Plan was to take him to trach only this afternoon. Getting IV Precedex. Awake. Moves his head to command. Was able to move his right arm. Wound VAC remains in place. Right chest tube/pigtail catheter in place. Some air leak. Minimal output from the right RAYA drain. Secretions persist through the left J-tube site. at the bedside. Spoke to the social media marketing manager David. Looking into long-term placement. 01/23/24 Patient is evaluated in the ICU at the bedside. Feels anxious today, precedex is being weaned. He is awake alert. He is edematous. Abdominal wound vac in place. Right chest tube/pigtail in place. 55 ML of drainage overnight. Right sided RAYA drain. J tube in place. On TPN. He is pending approval for select specialty vs. [facility]. Blood work today reveals a sodium level of 131. Continues on IV Ciprofloxacin/ IV fluconazole. REVIEW OF SYSTEMS: CONSTITUTIONAL: No fever, no malaise, reports fatigue HEENT: No recent visual problems or hearing problems. Denied any sore throat. CARDIOVASCULAR: No chest pain, orthopnea, PND, no palpitations, no syncope. PULMONARY: Reports shortness of breath, no cough, no hemoptysis. GASTROINTESTINAL: No diarrhea, no nausea, no vomiting, no abdominal pain. NEUROLOGICAL: No headaches, no weakness, no numbness. Anxious. PHYSICAL EXAMINATION: GENERAL: The patient is alert and oriented x2, not in any acute distress. Well developed, well nourished. Trach Collar. HEENT: Pupils are round and equally reacting to light. EOMI. No scleral icterus. No conjunctival pallor. Normocephalic, atraumatic. No pharyngeal erythema. No thyromegaly. CARDIOVASCULAR: S1 and S2 present. No murmurs, rubs, or gallops. PULMONARY: Chest is clear to auscultation, no wheezing or crackles. Diminished. ABDOMEN: Soft, nontender, nondistended, normoactive bowel sounds. No palpable organomegaly. MUSCULOSKELETAL: No joint swelling or deformity. EXTREMITIES: No cyanosis, clubbing, or pedal edema. Peripheral edema 1+ NEUROLOGICAL: Diffuse weakness throughout SKIN: No rashes. Stage 2 sacral decub Assessment plan: -Aspiration and gram-negative bacterial pneumonia a bilateral initially from retained gastric contents mostly food and liquids, causing acute hypoxic respiratory failure: On presentation: Subsequent bacterial pneumonia and lung abscess sputum culture November 25: Citrobacter freundii, Pseudomonas aeruginosa. December 13: Klebsiella oxytoca, Pseudomonas aeruginosa IV meropenem-, IV Zosyn.IV ceftolozane/tazobactam, IV daptomycin, tobramycin-all discontinued Currently getting IV ciprofloxacin. , Tobramycin, Diflucan -Had became asynchronous with the ventilator; currently now on trach collar and agitated. On Precedex drip which is being weaned. -Pain, multifactorial Getting Dilaudid every 2 as needed -Breakdown of tracheostomy stoma site. Dressing in place Being followed by video production assistant -Sepsis with septicemia from above Patient received multiple antibiotics -Right l lung abscess, pigtail catheter placed January 07, 2024. Initially about 200 cc of pus obtained. During the procedure large amount of pus poured out of the tracheostomy site when patient was rolled on the left side. Status post bronchoscopy with some lavage on 01/07/2024 -Pigtail catheter in place - lung abscess larger 1 on the right side-patient cultures are growing Pseudomonas and Klebsiella oxytoca: , Received other antibiotics. Currently on ciprofloxacin and tobramycin -Acute pulmonary edema and fluid overload from hypoalbuminemic state and fluids from IV.:: Has been getting Lasix and dialysis: Both held -Altered mentation. Possibly encephalopathy. Could be delirium.: Some im provement CT brain [December 06] nothing acute Neurology following EEG-evidence of generalized cerebral dysfunction and sporadic intermittent higher amplitude sharply contoured waves mainly bifrontal. Showing cortical irritability. Keppra was started on December 07 -Critical care poly- Pedro neuropathy: Slow to respond PT OT -Gallstones, asymptomatic -Small l bowel perforation at site of jejunostomy tube tip with balloon..: Portion of small bowel resected. On November 24. New J-tube was placed.- drainage to gravity:-Now discontinued December 19: J-tube blocked. J-tube replaced on December 20 over wire December 21: Leaking around the J-tube site. Feeding held December 23: J feeding was started yesterday evening but again started leaking increasingly around the J-tube site-feeding held again December 24: J-tube feeding has been held. Patient is currently having increased drainage from the J-tube site -Acute kidney injury. Possible ATN from hypotensive shock: Resolved Renal ultrasound unremarkable. Started on renal replacement therapy on November 28. Last hemodialysis on December 17. Being followed by an nephrology. Good urine output. -Nutrition Jejunostomy tube placed November [address] Ewing Received TPN-this was discontinued. TPN lipids restarted on December 24 -Midline abdominal incision wound dehiscence Wound VAC placed -Acute recurrent atrial fibrillation-converted to sinus rhythm Received IV amiodarone. Cardiology following -Acute hypoxic respiratory failure from aspiration pneumonia, status post ventilator assisted: Reintubated November 25. FiO2 35 PEEP of 5 Tracheostomy tube-by Dr. Zepeda on December 09 -Septic shock, recovered -Hypertension, recurrent Had received Cleviprex. Hydralazine added -Intermittent hypotension: Corrected Intermittent use of Levophed. 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 Also anemia of blood draw. Iron deficiency anemia Received total of 6 units of blood IV iron. -Severe thrombocytopenia. Would consider coagulation disorder secondary to infection., In the setting of underlying lymphoma.: Fluctuating with infection Hematology following. -Acute blood loss anemia, -Sacral stage II decub ulcer Dressing in place -Hypokalemia, multiple causes -Hypoglycemia: Corrected -GERD PPI -Acute diarrhea secondary to tube feeding.: Resolved C. difficile ruled out. -Large superficial gastric antral ulceration involving the gastric antrum extending into the pylorus with gastric outlet obstruction. 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 -DNR made on January 12. Now full code with instructions on January 17 On Precedex which is being weaned currently. IV ciprofloxacin and IV fluconazole.. TPN lipids. gas worker looking into long-term placement. Spoke to the at the bedside. Continue treatment plan. Repeat electrolytes tomorrow. The impression and plan of care has been dictated by Carol Ulrich Nurse Practitioner as directed. Dr. Jozef MD I have performed a history and physical examination and medical decision making of this patient, discussed the same with the dictator, and agree with the d ictators assessment and plan as written, documented as a scribe. Based on total visit time, I have performed more than 50% of this visit. Objective - Vital Signs Vital signs: Vital Signs Temp 98.9 F 01/23/24 04:00 Pulse 74 01/23/24 07:00 Resp 31 H 01/23/24 07:00 BP 128/82 01/23/24 07:00 Pulse Ox 98 01/23/24 07:56 FiO2 40 01/23/24 07:56 Intake & Output 01/22/24 01/23/24 01/23/24 18:59 06:59 18:59 Intake Total 2290 3444.400 Output Total 2330 1810 Balance -40 1634.400 Weight 108.3 kg Intake: IV 2190 2300 0.9 Normal Saline @ KVO 60 120 Ciprofloxacin/Dextrose 400 Pmx 400 mg In Dextrose/ Water 1 200ml.bag @ 200 mls/hr IVPB Q8H [facility] Rx#: [id number] Fluconazole in NaCl,Iso- 200 Osm 200 mg In Saline 1 100ml.bag @ 100 mls/hr IVPB DAILY [facility] Rx#: [id number] Magnesium Sulfate-D5w Pmx 100 1 gm In Dextrose/Water 1 100ml.bag @ 100 mls/hr IVPB ONCE ONE Rx#: [id number] Potassium Chloride 10 meq 200 100 In Water For Injection 1 100ml.bag @ 100 mls/hr IVPB Q1H [facility] Rx#: [id number] Sodium Chloride 0.9% 1, 550 600 000 ml @ 50 mls/hr IV . Q20H [facility] Rx#:[id number] TPN 1080 1080 Intake, IV Titration 100 1144.400 Amount Dexmedetomidine/0.9% NaCl 100 185.900 (Pmx) 400 mcg In Empty Bag 1 bag @ 0.2 MCG/KG/HR 5.2 mls/hr IV .[id number] [facility] Rx#:[id number] Mvi, Adult No.4 with Vit 958.5 K 10 ml Trace (Conc-1Ml/ Dose) 1 ml Parenteral Electrolytes 20 ml Sodium Acetate 34 meq Potassium Chloride 16 meq Magnesium Sulfate gm 0.5 gm Sodium Phosphate 9 mmol In Amino Acids 5 %/ Dextrose 20 % 1,000 ml @ 90 mls/hr IV .BY DURATION [facility] Rx#:[id number] Output: Chest Tube Drainage 30 Chest Tube Right 30 Drainage 135 Right Abdomen 80 Right Upper Posterior 55 Chest Urine 2300 1675 Other: Voiding Method Indwelling Catheter Indwelling Catheter # Bowel Movements 1 ABP, PAP, CO, CI - Last Documented Arterial Blood Pressure 173/76 - Labs CBC & Chem 7: 01/22/24 05:32 01/23/24 07:10 Labs: Abnormal Lab Results - Last 24 Hours (Table) 01/22/24 01/22/24 01/22/24 Range/Units 11:39 15:19 17:46 Sodium (137-145) mmol/L BUN (9-20) mg/dL Glucose (74-99) mg/dL POC Glucose (mg/dL) 180 H 134 H (70-110) mg/dL Calcium (8.4-10.2) mg/dL Alkaline Phosphatase (38-126) U/L Albumin (3.5-5.0) g/dL Tobramycin Trough 7.7 H* ug/mL 01/22/24 01/23/24 01/23/24 Range/Units 23:38 05:45 07:10 Sodium 131 L (137-145) mmol/L BUN 22 H (9-20) mg/dL Glucose 153 H (74-99) mg/dL POC Glucose (mg/dL) 141 H 190 H (70-110) mg/dL Calcium 7.6 L (8.4-10.2) mg/dL Alkaline Phosphatase 212 H (38-126) U/L Albumin 2.5 L (3.5-5.0) g/dL Tobramycin Trough ug/mL Assessment and Plan Time with Patient: Less than 30
--- NOTE | 2024-01-23 21:00 | P.PN ---
Subjective Progress Note Date: 01/23/24 Patient seen and examined at bedside. According to family he sat at bedside for a little while today and sat in the chair yesterday. No other acute changes. Objective - Vital Signs Vital signs: Vital Signs Temp 98.9 F 01/23/24 20:00 Pulse 74 01/23/24 20:32 Resp 31 H 01/23/24 20:00 BP 149/93 01/23/24 20:00 Pulse Ox 100 01/23/24 20:24 FiO2 35 01/23/24 20:24 Intake & Output 01/23/24 01/23/24 01/24/24 06:59 18:59 06:59 Intake Total 3444.400 3433.02 321 Output Total 1810 1221 250 Balance 4087.221 8673.02 71 Weight 108.3 kg Intake: IV 2300 2060 321 0.9 Normal Saline @ KVO 120 110 20 Ciprofloxacin/Dextrose 400 200 Pmx 400 mg In Dextrose/ Water 1 200ml.bag @ 200 mls/hr IVPB Q8H [facility] Rx#: [id number] Fat Emulsion 20% 250 ml 210 21 In Empty Bag 1 bag @ 21 mls/hr IV TuThSa@0900 [facility] Rx#:[id number] Fluconazole in NaCl,Iso- 100 Osm 200 mg In Saline 1 100ml.bag @ 100 mls/hr IVPB DAILY [facility] Rx#: [id number] Potassium Chloride 10 meq 100 In Water For Injection 1 100ml.bag @ 100 mls/hr IVPB Q1H [facility] Rx#: [id number] Sodium Chloride 0.9% 1, 600 450 100 000 ml @ 50 mls/hr IV . Q20H [facility] Rx#:[id number] TPN 1080 990 180 Intake, IV Titration 0442.778 1579.02 Amount Dexmedetomidine/0.9% NaCl 185.900 124.02 (Pmx) 400 mcg In Empty Bag 1 bag @ 0.2 MCG/KG/HR 5.2 mls/hr IV .[id number] [facility] Rx#:[id number] Mvi, Adult No.4 with Vit 958.5 K 10 ml Trace (Conc-1Ml/ Dose) 1 ml Parenteral Electrolytes 20 ml Sodium Acetate 34 meq Potassium Chloride 16 meq Magnesium Sulfate gm 0.5 gm Sodium Phosphate 9 mmol In Amino Acids 5 %/ Dextrose 20 % 1,000 ml @ 90 mls/hr IV .BY DURATION [facility] Rx#:[id number] Parenteral Electrolytes 1049 20 ml Sodium Acetate 34 meq Potassium Chloride 16 meq Magnesium Sulfate gm 0.5 gm Sodium Phosphate 9 mmol In Amino Acids 5 % /Dextrose 20 % 1,000 ml @ 90 mls/hr IV .BY DURATION [facility] Rx#: [id number] Potassium Chloride 10 meq 200 In Water For Injection 1 100ml.bag @ 100 mls/hr IVPB Q1H [facility] Rx#: [id number] Output: Chest Tube Drainage 20 Chest Tube Right 20 Drainage 135 50 Right Abdomen 80 50 Right Upper Posterior 55 Chest Urine 1675 1150 250 Stool 1 Other: Voiding Method Indwelling Catheter Indwelling Catheter # Bowel Movements 1 ABP, PAP, CO, CI - Last Documented Arterial Blood Pressure 173/76 - Constitutional General appearance: Present: cooperative, no acute distress - Gastrointestinal Gastrointestinal Comment(s): Soft, nontender, wound VAC in place, J-tube in place with some surrounding drainage - Labs CBC & Chem 7: 01/22/24 05:32 01/23/24 07:10 Labs: Abnormal Lab Results - Last 24 Hours (Table) 01/22/24 01/23/24 01/23/24 Range/Units 23:38 05:45 07:10 Sodium 131 L (137-145) mmol/L BUN 22 H (9-20) mg/dL Glucose 153 H (74-99) mg/dL POC Glucose (mg/dL) 141 H 190 H (70-110) mg/dL Calcium 7.6 L (8.4-10.2) mg/dL Alkaline Phosphatase 212 H (38-126) U/L Albumin 2.5 L (3.5-5.0) g/dL 01/23/24 01/23/24 Range/Units 12:27 17:57 Sodium (137-145) mmol/L BUN (9-20) mg/dL Glucose (74-99) mg/dL POC Glucose (mg/dL) 164 H 147 H (70-110) mg/dL Calcium (8.4-10.2) mg/dL Alkaline Phosphatase (38-126) U/L Albumin (3.5-5.0) g/dL Assessment and Plan Plan: -concert manager is working on transferring patient to [facility] -At this time, patients J tube site fistula is mature and it is of no harm to the patient if the J tube has been pulled back as the patient has not been getting any tube feeds. Please do not adjust J tube. Patients nutritional support will be from TPN. -Wound VAC scheduled changes. If patient cannot go to [facility] with the wound VAC can do wet-to-dry dressings on midline incision wound -Continue supportive care -Continue TPN for nutrition support - All questions answered at bedside with and daughter
[2024-01-23 23:34] LABS: Glucose,Whole Blood 127 mg/dL (70-110)
[2024-01-24 05:20] LABS: Glucose,Whole Blood 134 mg/dL (70-110)
[2024-01-24 06:04] LABS: Anisocytosis Slight; HCT 24.4 % (39.0-53.0); HGB 7.8 gm/dL (13.0-17.5); Hypochromasia Slight; MCH 29.5 pg (25.0-35.0); MCHC 32.1 g/dL (31.0-37.0); MCV 91.8 fL (80.0-100.0); Platelet Count 405 k/uL (150-450); RBC 2.66 m/uL (4.30-5.90); RDW 16.9 % (11.5-15.5); WBC 15.9 k/uL (3.8-10.6)
[2024-01-24 06:15] LABS: ALT 33 U/L (4-49); AST 40 U/L (17-59); African American GFR (CKD) >90 (>60 ml/min/1.73 sqM); Albumin 2.3 g/dL (3.5-5.0); Alkaline Phosphatase 196 U/L (38-126); Anion Gap 1 mmol/L; Blood Urea Nitrogen 21 mg/dL (9-20); Calcium 7.2 mg/dL (8.4-10.2); Carbon Dioxide 23 mmol/L (22-30); Chloride 106 mmol/L (98-107); Glucose 115 mg/dL (74-99); Magnesium 1.5 mg/dL (1.6-2.3); Non-African American GFR(CKD) >90 (>60 ml/min/1.73 sqM); Phosphorus 3.5 mg/dL (2.5-4.5); Potassium 3.5 mmol/L (3.5-5.1); Sodium 130 mmol/L (137-145); Total Bilirubin 0.9 mg/dL (0.2-1.3); Total Protein 6.4 g/dL (6.3-8.2)
[2024-01-24] MEDS: LORazepam 2 MG/ML INJ IV PRN (08:16)
[2024-01-24] MEDS: POTASSIUM CHLORIDE 10 MEQ in WATER FOR INJECTION 1 100ML.BAG IVPB SCH (08:26)
[2024-01-24] MEDS: MAGNESIUM SULFATE-D5W PMX 1 GM in DEXTROSE/WATER 1 100ML.BAG IVPB SCH (08:26)
--- NOTE | 2024-01-24 10:21 | P.PN ---
Subjective Patient is seen in follow-up for acute kidney injury. Patient underwent exploratory laparotomy with small bowel obstruction NG tube replacement Sep tem2023. Nonoliguric. Started on hemodialysis November 29, 2023. Last dialysis December 18, 2023. Status post tracheostomy December 10, 2023. Renal function has improved and is back to baseline. Receiving TPN. Off vasopressors. Underwent drainage of lung abscess January 07, 2024. Hemoglobin improved post blood transfusion. ID requesting CT with IV contrast. Vital signs stable. General: Resting in bed. HEENT: Tracheostomy noted. LUNGS: Scattered rhonchi. HEART: Regular rate and rhythm. ABDOMEN: No drainage. EXTREMITITES: Trace edema. Objective - Vital Signs Vital signs: Vital Signs Temp 98.7 F 01/24/24 09:00 Pulse 94 01/24/24 10:14 Resp 35 H 01/24/24 10:14 BP 158/97 01/24/24 09:00 Pulse Ox 100 01/24/24 09:00 FiO2 40 01/24/24 10:14 Intake & Output 01/23/24 01/24/24 01/24/24 18:59 06:59 18:59 Intake Total 3433.02 3104.433 630 Output Total 1221 1505 150 Balance 2212.02 1599.433 480 Weight 105.5 kg Intake: IV 2059 2020 330 0.9 Normal Saline @ KVO 110 120 10 Ciprofloxacin/Dextrose 200 200 Pmx 400 mg In Dextrose/ Water 1 200ml.bag @ 200 mls/hr IVPB Q8H [facility] Rx#: [id number] Fat Emulsion 20% 250 ml 210 21 In Empty Bag 1 bag @ 21 mls/hr IV TuThSa@0900 [facility] Rx#:[id number] Fluconazole in NaCl,Iso- 100 Osm 200 mg In Saline 1 100ml.bag @ 100 mls/hr IVPB DAILY [facility] Rx#: [id number] Sodium Chloride 0.9% 1, 450 600 50 000 ml @ 50 mls/hr IV . Q20H [facility] Rx#:[id number] TPN 990 1080 270 Intake, IV Titration 1373.02 1083.433 300 Amount Dexmedetomidine/0.9% NaCl 124.02 58.933 (Pmx) 400 mcg In Empty Bag 1 bag @ 0.2 MCG/KG/HR 5.2 mls/hr IV .[id number] [facility] Rx#:[id number] Fluconazole in NaCl,Iso- 100 Osm 200 mg In Saline 1 100ml.bag @ 100 mls/hr IVPB DAILY [facility] Rx#: [id number] Magnesium Sulfate-D5w Pmx 100 1 gm In Dextrose/Water 1 100ml.bag @ 100 mls/hr IVPB Q1H [facility] Rx#: [id number] Parenteral Electrolytes 1049 1024.5 20 ml Sodium Acetate 34 meq Potassium Chloride 16 meq Magnesium Sulfate gm 0.5 gm Sodium Phosphate 9 mmol In Amino Acids 5 % /Dextrose 20 % 1,000 ml @ 90 mls/hr IV .BY DURATION [facility] Rx#: [id number] Potassium Chloride 10 meq 200 100 In Water For Injection 1 100ml.bag @ 100 mls/hr IVPB Q1H [facility] Rx#: [id number] Output: Chest Tube Drainage 20 15 Chest Tube Right 20 15 Drainage 50 90 Right Abdomen 50 90 Urine 1150 1400 150 Stool 1 Other: Voiding Method Indwelling Catheter Indwelling Catheter # Bowel Movements 1 ABP, PAP, CO, CI - Last Documented Arterial Blood Pressure 173/76 - Labs CBC & Chem 7: 01/24/24 05:53 01/24/24 05:53 Labs: Abnormal Lab Results - Last 24 Hours (Table) 01/23/24 01/23/24 01/23/24 Range/Units 12:27 17:57 23:33 WBC (3.8-10.6) k/uL RBC (4.30-5.90) m/uL Hgb (13.0-17.5) gm/dL Hct (39.0-53.0) % RDW (11.5-15.5) % Sodium (137-145) mmol/L BUN (9-20) mg/dL Glucose (74-99) mg/dL POC Glucose (mg/dL) 164 H 147 H 127 H (70-110) mg/dL Calcium (8.4-10.2) mg/dL Magnesium (1.6-2.3) mg/dL Alkaline Phosphatase (38-126) U/L Albumin (3.5-5.0) g/dL 01/24/24 01/24/24 01/24/24 Range/Units 05:18 05:53 05:53 WBC 15.9 H (3.8-10.6) k/uL RBC 2.66 L (4.30-5.90) m/uL Hgb 7.8 L (13.0-17.5) gm/dL Hct 24.4 L (39.0-53.0) % RDW 16.9 H (11.5-15.5) % Sodium 130 L (137-145) mmol/L BUN 21 H (9-20) mg/dL Glucose 115 H (74-99) mg/dL POC Glucose (mg/dL) 134 H (70-110) mg/dL Calcium 7.2 L (8.4-10.2) mg/dL Magnesium 1.5 L (1.6-2.3) mg/dL Alkaline Phosphatase 196 H (38-126) U/L Albumin 2.3 L (3.5-5.0) g/dL Assessment and Plan Plan: Assessment: 1. Acute kidney injury secondary to ATN secondary to septic shock. Creatinine 0.86 on admission and up to 5.38 dated November 29, 2023. Urine output impr rayshawn, now nonoliguric. UA fairly benign. No hydronephrosis noted on imaging. Started on hemodialysis November 29, 2023 due to volume overload. Patient initially had a right femoral catheter placed which subsequently became occluded and a left tunneled femoral catheter was placed December 06, 2023. Renal function back to baseline. 2. Perforated small bowel status post exploratory laparotomy with abdominal washout, small bowel resection and J-tube replacement November 25, 2023. 3. A-fib with RVR. s/p amiodarone drip. Also received digoxin this admission. 4. Recently diagnosed gastric B-cell lymphoma. 5. Septic shock. Likely abdominal source. On IV antibiotics. Blood culture positive for staph. ID following. Dialysis catheter removed. 6. Hypocalcemia secondary to acute kidney injury. Replaced. Improved. 7. Metabolic acidosis secondary to acute kidney injury, TPN. 8. Volume overload. Improved with diuresis and ultrafiltration. 9. Status post tracheostomy December 10, 2023. 10. Anemia. Component of chronic illness and acute blood loss. Received blood transfusions and DDAVP this admission. 11. Hypernatremia from lack of oral water intake. Status post D5W. Resolved. Now sodium on the lower side. 12. Hypokalemia from poor intake. Being replaced as needed. 13. Hypomagnesemia from poor intake. Being replaced. Plan: Last dialysis December 18, 2023. No further need at this time. Dialysis catheter removed December 28, 2023. Receiving TPN. Avoid nephrotoxins. Preserved EF noted on echocardiogram. Replace electrolytes as needed. Lasix as needed. Aranesp discontinued as patient does not have CKD. Maintain gentle IV hydration. Okay to proceed to CT with IV contrast. Discussed risk of worsening renal function in detail with family present at bedside. Prognosis guarded.
--- NOTE | 2024-01-24 11:35 | P.PN ---
Subjective Progress Note Date: 01/24/24 Principal diagnosis: Abdominal pain. This is a 73-year-old white male with history of chronic abdominal pain for the last 8 months has been treated with Protonix 40 mg daily for the last 3 months with no improvement. Patient had a 22 pound weight loss in the last [address] of the abdomen and pelvis 3 weeks ago showed thickening of the antral wall with pathological adenopathy posterior to the stomach suspicious of neoplasm. Today the patient underwent elective upper endoscopy to evaluate further, patient received IV sedation by anesthesia endoscope was inserted into the mouth, esophagus was intubated without any difficulty there was evidence of large amount of liquid and solid food noted in the stomach suggestive of gastric outlet obstruction. Scope could not be advanced through the pylorus, however in the prepyloric area there was a large superficial ulceration identified with multiple biopsies were done from this area. The body cardia and fundus could not adequately visualize because of large amount of retained food in the stomach. Scope was withdrawn back to the stomach and upon careful examination the mucosa of the antrum body and cardia as well as the fundus appeared normal. Procedure was being performed and biopsies were done patient threw up and subsequently became hypoxic there was clearly evidence of witnessed aspiration anesthesia intubated the patient, procedure was terminated, and the patient was transferred to the ICU, this consult was initiated. Patient is now on assist- control rate of 20 tidal volume 500 FiO2 70% PEEP of 10 ABG is pending, earlier ABG showed profound hypoxia patient is on propofol at 50 mcg/kg/min, next ABG is pending. Chest x-ray showed chronic changes without evidence of acute pulmonary disease. Patient was seen and examined today on 11/13/2023, remains in the ICU, intubated mechanically ventilated, on assist-control rate of 20 tidal volume 500 FiO2 50% and PEEP of 10 ABG showed a pO2 of 143 pCO2 47 pH of 7.28 hence PEEP was cut down to 6, and increased rate to 22. Patient is still requiring IV fluid at 100 cc/h/LR. Requiring norepinephrine at 0.08 mcg/kg/min he is also on propofol at 50 mg/kg/min antibiotics arce patient is receiving Zosyn. Chest x-ray is showing worsening infiltrates specially in the left lung. This could be related to aspiration pneumonia. Patient had witnessed aspiration during endoscopy/upper endoscopy.WBC count is 14 hemoglobin 7.6 basic metabolic profile is normal BUN is 26 creatinine 1.57 obviously the patient sustained some acute kidney injury baseline creatinine 0.86 patient had received fluids over the last 24 hours, remains on fluids at 100 cc/h Patient with seen and examined today on 11/14/2023, patient remains in the ICU, intubated and mechanically ventilated. Failed weaning trial yesterday and he became quite agitated and desaturated once he went off propofol. Had to be placed back on assist-control mode of mechanical ventilation and sedation. Today the patient is on assist-control rate of 22 tidal volume 500 FiO2 50% PEEP of 6. ABG showed a pO2 of 123 pCO2 51 pH of 7.32, and I cut down his FiO2 down to 45%, patient is receiving a unit of packed RBCs for hemoglobin of 6.9 today. Patient had an episode of A-fib RVR at 3 AM in the morning, seen by cardiology, and recommended patient goes on amiodarone. Still requiring norepinephrine at 0.05 mg/kg/min, he is on LR at 100 cc/h propofol at 50 mg/kg/min. Remains empirically on Zosyn for aspiration pneumonia. My plan today is transitioning the patient to Precedex, hopefully discontinue propofol, and at least give the patient a decent weaning trial or at least check weaning parameters before we proceed to weaning trial. Chest x-ray continues to show evidence of pneumonia mostly in the left lung and left lower lobe more specifically. Some pulmonary vascular congestion is noted with interstitial edema, small pleural effusion is also noted/left side. WBC count today is 12 hemoglobin 6.9 basic metabolic profile is normal bicarb is 25, BUN is 25 creatinine is improving down to 1.21 from 1.57 yesterday Patient was evaluated today on 11/15/2023, patient remains in the ICU, he was extubated yesterday, and his extubation was relatively uneventful. However the patient continues to have nasogastric tube in place, his pathology report came back showing non-Hodgkin's lymphoma, patient has gastric outlet obstruction, and the recommendation by GI is to consult surgery for a jejunostomy tube which is appropriate. Patient will be seen today by oncology and he will be seen by [facility]. In the meantime patient is comfortable, he is on 5 L nasal cannula he has LR running at 100 cc/h, he is remains on Zosyn for aspiration pneumonia remains on amiodarone which was started by cardiology for atrial fibrillation with RVR, presently in sinus rhythm. Cannot switch him to oral because of the fact that remains n.p.o., patient remains on TPN. WBC count is 10.7 hemoglobin 7.5 electrolytes are normal renal profile is normal, creatinine normalized to 0.96 Patient was evaluated today on 11/16/2023, remains in the ICU, on 5 L nasal cannula remains on amiodarone at 0.5 mg/min remains on LR at 100 cc/h, however his chest x-ray is showing some component of interstitial edema or could be findings related to his recent episode of aspiration/aspiration pneumonia, nonetheless the patient seems to be a bit symptomatic, he has intermittent cough and wheezing, I am recommending Lasix 40 mg IV push, cut down his IV fluid to 50 cc/h, continue Zosyn, patient will be placed on DuoNeb updrafts and on Solu- Medrol. Patient is scheduled to have jejunostomy-tube placement today. WBC count is 13 hemoglobin 7.7 basic metabolic profile is normal and renal profile is normal Patient was evaluated today on 11/17/2023, patient underwent uneventful placement of a jejunostomy tube yesterday, in the ICU on 5 L, patient is relatively stable, not in any distress, patient continues to have nasogastric tube in place although he did have a J-tube placed yesterday. Patient was seen by oncology for his non-Hodgkin's lymphoma involving the gastric outlet. Today's x-ray showed evidence of pneumonia/bilateral interstitial infiltrate/edema patient was given a dose of Lasix, I reminded the patient had an aspiration episode which was significant. And he required intubation mechanical ventilation for a few days.WBC count today is 9.1 hemoglobin 7.9 electrolytes are normal renal profile is normal hence I plan to transfer the patient out of the ICU to a cardiac floor. And hopefully discharge planning in the next 2 days for The patient was seen today November 18, 2023 in follow-up in the intensive care unit. He is currently sitting up in bed. Awake and alert in no acute distress. He is maintaining O2 saturations in the 90s on 5 L/min per nasal cannula. Glucose 177. Remains on DuoNeb inhalations and Solu-Medrol. Antibiotics in the form of Zosyn. He has a J-tube in place. He was initiated on vital AF 1.2 at 10 mL an hour with a goal of 82 mL/h The patient is seen today November 19, 2023 in follow-up in the intensive care unit. He is a regular medical floor overflow patient. He is currently sitting up in a chair. Awake and alert in no acute distress. He is maintaining O2 saturations in the 90s on 5 L/min per nasal cannula. No IV fluids. He denies any worsening shortness of breath, cough or congestion. He is having some issues with diarrhea. He remains on Zosyn. He is receiving vital AF at 55 mL/h with a goal of 82 mL/h. Glucose 161. Solu-Medrol, DuoNeb inhalations. The patient is seen today November 20, 2023 in follow-up on the regular medical floor. He is currently up in a chair at the bedside. Awake and alert in no acute distress. Denies any worsening shortness of breath, cough or congestion. He is maintaining O2 saturation in the 90s on 3 L/min per nasal cannula. He continues on Zosyn. Continues on bronchodilators and steroids. White count 12.3. Hemoglobin 9.0. Platelets 258. Glucose 168. He is not tolerating his tube feeds as he has developed diarrhea. C. difficile screen was negative. Abdominal series revealed cardiomegaly with left basilar acute infiltrate and/or atelectasis. Overall nonspecific bowel gas pattern. A small bowel obstruction needs to be considered. Progress note dated November 21, 2023. The patient is seen in room 517. The patient is currently on 3 L of oxygen. He continues on Zosyn. His biggest complaint has been abdominal discomfort and diarrhea. He did have a CT scan of the abdomen and pelvis. Current laboratory data includes a white count of 14.4, hemoglobin 8.8, hematocrit 28.7, and platelet count 229,000. Sodium 139, potassium 4.1, chlorides 103, CO2 30, BUN 42, creatinine 0.94. Glucose is 158. Calcium is 8.5. Progress note dated November 22, 2023. 73-year-old male seen in room 517. He currently is on 2 L of oxygen. Room air saturation was 89%. Chest CT shows bilateral patchy infiltrates. He continues on Zosyn. He is still not taking anything by mouth. No new laboratory data today other than a glucose of 138. Gram stain was negative. Progress note dated November 23, 2023. 73-year-old male seen in room 517. He is resting comfortably without com plaints. He continues on saline at 10 cc an hour, tube feedings with Pivot at 20 cc an hour, Zosyn, and 2 L by nasal cannula. He has had an uneventful night. Laboratory data today includes a white count 14.5, hemoglobin 9.7, hematocrit 31.4, and a platelet count of 242,000. Sodium 138, potassium 3.7, chlorides 106, CO2 26, BUN 39, creatinine 0.95. Glucose is 181. Calcium is 8.5. Sputum sampling was negative. Progress note dated November 24, 2023. 73-year-old male who is seen in room 517. The patient has been having significant abdominal discomfort, and went for a evaluation, ordered by surgery today, to determine whether or not the feeding tube, was in proper position, and whether or not there is anything acutely going on in the abdomen. He had been having diarrhea. He is on 3 L of oxygen. He has been here for 12 days. This is a patient, that had a prior EGD, aspirated, because of gastric outlet obstruction, and was diagnosis of non-Hodgkin's lymphoma. He is currently on Zosyn, DuoNebs, and Solu-Medrol. He has been NPO. Chest x-ray showed a left lower lobe infiltrate. Abdominal x-ray showed multiple air-fluid levels. CT of the abdomen showed multiple dilated small bowel loops, consistent with obstruction, pneumoperitoneum, ascites, and cholelithiasis. White count was 14.1, hemoglobin 8.9, hematocrit 29.5, and platelet count was 255,000. Glucose was 143. 11/25/2023, the patient is being seen in the intensive care unit. The patient is critically ill, n.p.o., he has an NG tube in place. Following the NG tube insertion, there was a total of 2.0 L of output and the patient's J-tube was also draining approximately 200 cc over the past 8 hours. Continues to have abdominal pain which is rather diffuse and the patient has direct abdominal tenderness. CAT scan of the abdomen was noted and was consistent with small bowel obstruction. The patient has a stomach that was inflated and in the same time there were multiple loops of small bowel distended with fluid. This extended to the pelvis. J-tube with contrast nondilated small bowel loops within the mid abdomen. Additional loops of small bowel were seen that was dilated. There was some contrast in the right lower quadrant and contrast was also in the cecum. No transition point was identified. The dilated loops of the bowel appeared to be in the proximal jejunum and distal to the duodenum. General surgery is on the case the patient will be taken to the operating room for another exploratory laparotomy. Noted the CAT scan of the abdomen also showed pneumoperitoneum and small amount of ascites and cholelithiasis. Hemodynamically, the patient is currently on normal saline at rate of 75 cc an hour. He is hypotensive and is going to be started on pressors. He is on 4 L of oxygen by nasal cannula. He also has sustained acute kidney injury. Blood work from today shows a rise in the creatinine which is currently up to 2.5 with a BUN of 57. Serum bicarb is at 14 with an anion gap of 11. The patient WBC count is at 8.2 with a hemoglobin of 12.3 and a platelet count of 188. Chest x- ray from this morning is showing a right-sided port and a stable left lung airspace disease and an NG tube being in place. The patient remains on IV Zosyn. The patient is receiving Dilaudid for pain control. The patient remains on IV Solu-Medrol 60 mg every 6 hours. It was noted that the patient's surgical wound over the port has dehisced and there is some serous drainage and erythema at the incision site. Awake and alert and communicating. Family at the bedside. No apparent signs of respiratory distress at this point. 11/26/2023, the patient is being seen in follow-up. Events from yesterday was noted and the patient was taken to the operating room for exploratory laparotomy. The patient was found to have large amount of free fluid noted in the abdomen and there was significant contamination. There was perforation of the small bowel with the balloon of the previously inserted jejunostomy tube penetrating through the perforation. As such, the tube was removed, abdominal washout was done. Small bowel resection was done and the patient had a nodular jejunostomy tube inserted. Postop, the patient was extubated he was unable to tolerate extubation and the patient was kept intubated on mechanical ventilator and he was brought back to the intensive care unit. He is currently postop day #1 following his small bowel resection. Abdominal surgical wound site is dry c lean and intact. This morning, the patient remains sedated on propofol which is currently running at 35 mcg/kg/min. He is on assist-control mode of mechanical ventilation at rate of 28, tidal volume of 550, FiO2 of 60% with a PEEP of 5. Blood gas from today shows a pH of 7.35 with a pCO2 44 and pO2 of 88. Chest x- ray shows adequate positioning of the orotracheal tube. The patient has a Mediport on the right and a subclavian triple-lumen catheter on the left and the patient has persistent bilateral pleural effusion and infiltrates in lung base bilaterally. Hemodynamically, the patient remains in shock. He has been on high-dose norepinephrine which is currently running at 0.28 mcg/kg/min and the patient is also on vasopressin at 0.03 units an hour. He is IV fluids are in the form of bicarb infusion running at rate of 150 cc an hour. He is in sinus tachycardia. NG tube output has been 250 cc over the past 8 hours and the output from the J-tube is minimal at this point in time. Urine output is quite diminished as the patient has also sustained acute kidney injury. Overall fluid balance is +4.9 L over the past 24 hours. The patient's white cell count of 5.7 with a hemoglobin 9.9 and platelet count of 172. BUN is 72 with a creatinine of 2.8 and sodium levels at 143. The calcium level is at 6.5. LFTs are normal. Triglyceride level is at 315. On 11/27/2023, the patient remains critically ill. Remains intubated and on mechanical ventilator, still awaiting shock which is essentially septic shock. Remains on propofol which is running at 50 mcg/kg/min. Remains on the mechanical ventilator, assist-control mode with rate of 28, tidal volume of 550 with an FiO2 of 60% with a PEEP of 5. Blood gas shows a pH of 7.29 with a pCO2 of 47 and pO2 of 78. The patient had a follow-up chest x-ray that showed lower lobe consolidation slightly worse on the right and the orotracheal tube is in a good location. Urine output is diminished in the order of 5 to 10 cc an hour and the patient is also developing progressive worsening renal function. Remains on normal citrate of 150 cc an hour and the patient was started on TPN which is running at 30 cc an hour. He has a triple-lumen catheter in his left subclavian. Overall fluid balance over the past 24 hours is +3.9 L. Output from the NG tube and the J-tube is minimal. Hemodynamically, he is hypotensive and norepinephrine running at 0.45 mcg/kg/min. Vasopressin is a physiologic dose. He received amiodarone and he remains on maintenance amiodarone of 0.5 mg/min and the patient continues to be in atrial fibrillation and is having episodes of tachycardia. The white cell count is at 13, hemoglobin 9.4 platelet count is pending. The patient's BUN is 83 with a creatinine of 3.7. Sodium is at 140 with a potassium level of 5.5 dropped down to 4.4 as the sample was hemolyzed. LFTs are normal. Abdominal wound is dry clean and intact. RAYA drainage is essentially serous at this point in time. 11/28/2023, the patient is being seen for a follow-up. The patient remains intubated on mechanical ventilator. This morning, the patient tolerated propofol drip running at 50 mcg/kg/min. The patient is on mechanical ventilator assist-control mode with rate of 28, tidal volume of 550, FiO2 55% with a PEEP of 5. Chest x-ray shows stable findings with lower lobe consolidations bilaterally. Blood gas shows a pH of 7.32 with a pCO2 38 and pO2 90. Neuropathy has improved and the patient is producing approximately 30 cc an hour and the overall input output balance is +3.3 L over the past 24 hours. The patient is still on pressors although his pressor requirements have improved since yesterday. He is on norepinephrine which is running at 0.05 mcg/kg/min and vasopressin physiologic dose. Also, the patient on amiodarone drip regarding his chronic ongoing atrial fibrillation. Amiodarone drip is running at 0.5 mg/min. Nevertheless, the rate is under much better control. Noted the patient was given a dose of digoxin 0.5 mg IV yesterday which helped with rate control. Remains on normal citrate of 150 cc an hour. Remains on TPN at 40 cc an hour. Output from the J-tube is fecal. Output from the NG tube is more gastric. Surgical wound site is dry clean and intact. Sputum Gram stain and culture showing Pseudomonas and Citrobacter. Note that the Citrobacter was intermediate resistance to Zosyn. This will be discussed further with infectious disease. Blood cultures are still pending for now. They have negative based on the most recent check. Blood work from today shows WBC count 11.2, hemoglobin 7.9 and platelet count of 46. Sodium is at 140, potassium is at 4.3, chloride is 114 with a bicarb of 18. He has 93 and the creatinine is 4.8. Serum random vancomycin level is at 25.7. On 11/29/2023, the patient is being seen for a follow-up. Remains intubated on the mechanical ventilator. The patient sedated on propofol which is running at 35 mcg/kg/min. Synchronous with mechanical ventilator. On today's evaluation, he is on assist-control mode with rate of 28, tidal volume of 550, FiO2 55% with a PEEP of 5. Chest x-ray shows lower lobe consolidation bilaterally worse on th e right and the orotracheal tube is in good location. The blood gas showed a pH of 7.34 with a pCO2 of 35 and a pO2 of 84. No significant orotracheal secretions. Hemodynamically improved compared to yesterday. In fact, the patient is on minimal norepinephrine that was discontinued earlier this morning. The patient has converted to normal sinus rhythm. Remains on amiodarone at 0.5 mg/min. Overall fluid balance over the past 24 hours is 2.4 L positive. Urine output has been adequate and the patient is currently on IV Lasix. Nevertheless, the patient has developed progressive worsening renal function. Creatinine is up to 5.3 on today's evaluation with a potassium level of 4.4. Serum bicarb is at 18 with an anion gap of 9. WBC count is at 8.1 with a hemoglobin of 7 and a platelet count of 32 which has dropped compared to earlier evaluation. The rest of the coagulation profile was normal from 11/28/2023. Fibrinogen level is slightly elevated. Sputum samples have shown a combination of Citrobacter and Pseudomonas aeruginosa. Based on cultures and sensitivities, the patient will be taken off his IV Zosyn and he will be switched to IV meropenem. Output from the J-tube is fecal. Output from the NG tube is gastric and surgical wound site is dry clean and intact. He is afebrile for now. Hemodynamically, the patient is doing better. He remains on TPN for nutritional support. IV fluids are also running at a rate of 75 cc an hour. Remains on vancomycin. 11/30/2023, the patient is being seen for a follow-up. The patient remains on propofol at 50 mcg/kg/min. Ventilator settings are essentially unchanged. The patient remains on assist-control mode with rate of 18, tidal volume of 400, FiO2 50% with a PEEP of 5. The blood gas showed a pH of 7.37 with a pCO2 of 43 and pO2 of 127. Chest x-ray shows no significant interval change. Patient remains on normal saline at rate of 75 cc an hour and TPN at rate of 35 cc an hour. Fluid balance is positive. Hemodialysis was performed yesterday and the second session of hemodialysis to be done today. The patient's urine output is in the order of 20 to 30 cc an hour. The patient has an NG output of 350 cc for yesterday and the drainage from the J-tube is in the order of 400 cc over the past 24 hours. The blood work shows a WBC count of 10.8, hemoglobin 8.1 and platelet count of 41. Platelet counts are essentially stable and slightly improved compared to yesterday. The sodium level is at 133, potassium is at 4.3, BUN is 93 with a creatinine of 3.6. LFTs are within normal limits. Albumin is down to 2.1. The patient is currently on no pressors. Norepinephrine and vasopressin are both discontinued and the patient remains in normal sinus rhythm. No other significant events overnight. Family has been updated on his condition. Antibiotic coverage is currently with IV meropenem. Vancomycin and Zosyn have been both discontinued. On 12/01/2023, the patient remains sedated on propofol which is running at 25 mcg/kg/min., Comfortable and synchronous mechanical ventilator. The patient remains on assist-control mode rate of 28, tidal volume of 550, FiO2 40% and PEEP of 5. Blood gas shows a pH of 7.49 with a pCO2 of 34 and pO2 of 121. Patient underwent hemodialysis yesterday. No plans for hemodialysis today the patient is producing urine output. Remains on TPN for nutrition support rate of 75 cc an hour. IV fluids are currently at KVO. The chest x-ray from today shows bilateral lower lobe consolidation worse on the right. No significant change in the volume status. The patient continues to have third spacing and edema in all 4 extremities. Nevertheless, urine output is adequate at this point in time and the patient remains on Lasix 80 mg IV every 12 hours. Remains NPO. NG tube and J-tube are both drainage. Output is noted. Remains on IV meropenem. Afebrile. Currently on no pressors. Blood work shows a WBC count of 11.4, hemoglobin of 8.1 and platelet count of 46. Sodium is at 131, potassium level is at 3.7, chloride 101 and bicarb is at 24. BUN is 84 with a creatinine of 3.6. Glucose of 228. LFTs are within normal limits. Patient was reevaluated today on 12/02/23, patient remains in the ICU, patient is familiar to my service, I saw this patient 3 weeks ago. Since then he had a very complicated hospital course, related to his jejunostomy tube dislodging and leaking and picture of abdominal sepsis and worsening pneumonia/ARDS. Patient had to be placed back on mechanical ventilation, and he is now intubated and mechanically ventilated. He is on assist-control rate of 20 tidal volume 550 FiO2 40% PEEP of 5 ABG showed a pO2 of 111 pCO2 38 pH of 7.43 and I cut down his FiO2 to 35% and increase his flow rate from 60-70. Patient remains on TPN at 75 cc/h he is on propofol at 25 mcg/kg/min patient is on Cleviprex which I added today for elevated blood pressure. Receiving Lasix 80 mg every 12 hours is also on Merrem as per infectious disease. Patient is on hemodialysis and being followed by nephrology. Patient required multiple abdominal surgeries since his initial admission. Chest x-ray continues to show worsening pneumonia involving both lungs, right more so than left, I suspect there may be a component of ARDS. His initial presentation was the presentation of aspiration pneumonia to begin with and that was 3 weeks agoWBC count is 10.3 hemoglobin 8.6 sodium 131 potassium 4 chloride 100 bicarb 23 BUN is 111 creatinine 4.02 blood sugar is 248. Albumin is 1.9 Patient was evaluated today on , patient remains in the ICU, intubated and mechanically ventilated. Patient is on assist-control rate of 20 tidal volume 550 FiO2 35% and PEEP of 5 ABG showed a pO2 of 99 pCO2 39 pH of 7.44 patient is undergoing hemodialysis today, and the plan is to remove 2 L. He is remains on propofol at 35 mcg/kg/min, remains on TPN at 75 cc/h. Remains on Merrem. Patient is not requiring any pressors today. Yesterday patient did not tolerate to be off sedation long enough, and today we tried the same sedation interruption, and the patient did not do well post interruption of sedation, became extremely agitated restless, tachycardic, and could not fully assess mental status off sedation. Hence the patient was placed back on AC mode of mechanical ventilation, and the plan is to continue the same supportive care measures. Family updated on his condition and most likely the patient will end up requiring tracheostomy in the next few days.WBC count is 8.5 hemoglobin 8.2 basic metabolic profile is relatively unremarkable BUN is 89 creatinine 3.45 chest x-ray today showed stable chest, suspect some right-sided pleural effusion which would likely improve with hemodialysis/ultrafiltration. X-ray of abdomen showed nonspecific nonobstructive bowel gas pattern Patient was seen today on 12/04/2023, remains in the ICU, intubated mechanically ventilated, on assist-control rate of 20 tidal volume 550 FiO2 35% PEEP of 5 ABG showed a pO2 of 112 pCO2 38 pH of 7.45, hence no changes were made in ventilator settings. Patient is on propofol at 35 mcg/kg/min he is also on IV fluid at KVO TPN at 75 cc/h. Remains on hemodialysis remains on Lasix 80 mg IV push twice daily, remains on Merrem. This x-ray continues to show the same findi ngs/airspace disease in both lungs, not much of a change in the last 2 days, however his oxygenation seems to be improved. WBC count is 7.1 hemoglobin 7.7. Electrolytes are normal, BUN is elevated 77 creatinine 3.32, patient is on hemodialysis. His condition was discussed today with the at bedside, and I do not believe the patient is ready to be weaned or extubated, however he seems to get extremely agitated when he goes off propofol, today I plan to transition propofol to Precedex, give him a trial on Precedex and determine whether the patient becomes more appropriate and at least ready for any weaning trials. Clinically I doubt if this will happen but we will go ahead and try Patient was evaluated today on 12/05/2023, remains in the ICU, intubated mechanically ventilated, not much of a change noted in the last 24 hours. Remains on assist-control of 20 tidal volume 550 FiO2 35% PEEP of 5 ABG showed a pO2 of 90 pCO2 37 pH of 7.48 hence chose not to change any of his ventilator settings. Yesterday the patient failed again trial of weaning, and he was never anywhere near ready to be weaned in spite of placing him on Precedex and off propofol, at 1 point the patient became extremely agitated restless and he was biting on the endotracheal tube could not fully awake the patient and determine improvement in his mental status. Hence patient was placed back on propofol yesterday and he remains on propofol today. He is on propofol at 25 mcg/kg/min he is on TPN at 75 cc/h surgery is considering starting his J-tube feedings today. Remains on hemodialysis remains on Merrem remains on Lasix 80 mg IV push twice daily overall not much of a change his chest x-ray is basically about the same showing bibasilar airspace disease. Today I had a discussion with the regarding the option of tracheostomy extremely reluctant to have it done yet. Said that the patient had multiple complications with previous surgeries and she is afraid that he is going to have another complication with the surgeryWBC count is 10.2 hemoglobin is 8, basic metabolic profile is normal sodium 130 BUN 70 creatinine 2.89 Patient was seen today on 12/06/23, remains in the ICU, intubated mechanically ventilated, his ventilator settings are assist-control rate 20 tidal volume 550 FiO2 35% and PEEP of 5 ABG showed a pO2 of 103 pCO2 36 pH of 7.47 patient opens eyes but does not follow any other instructions. He is now off propofol for the last 24 hours, he is maintained on Precedex at 0.4, TPN at 75 cc/h vital AF at 5 mL/h. Patient remains on Merrem, patient did not receive dialysis today because issues related to occluded dialysis catheter. Nonetheless the patient is making urine, and continues to improve with diuretics. Chest x-ray continues to show bibasilar airspace disease, not much of a change analyst the last 1 week.WBC count today is 11.8 hemoglobin is 7.9.Basic metabolic profile is normal BUN is 92 creatinine 3.74. Blood sugar is 226. Family is at bedside, considering his overall mental status at this point, not quite ready to start checking weaning parameters, and is not ready for weaning. Nonetheless I plan to keep him on Precedex, and hopefully avoid narcotics and other sedatives. His mentation starts clearing a bit more, then will start trials of weaning parameters and/or weaning trials Patient was seen today on 12/07/2023, remains in the ICU, intubated and mechanically ventilated, on assist-control rate of 20 tidal volume 550 FiO2 35% PEEP of 5 ABG showed a pO2 of 83 pCO2 33 pH of 7.50 hence the tidal volume was cut down to 500. Patient remains off propofol remains off narcotics is only on Precedex for sedation at 0.6 mg/kg/h. He is on norepinephrine at 0.02 TPN at 75 cc/h IV fluid at KVO vital AF at 10 mL/h is also on Merrem. Neurologically I am concerned about this patient neurological status, does not seem to be waking up much, he opens his eyes but does not follow any instructions and spite of sedation hold for quite some time. Hence I am recommending a CT of the brain and multiple recommending a neurological consultation on this patient. WBC count is 18 7 hemoglobin is 8.4, basic metabolic profile is normal BUN is 75 creatinine 2.95, patient is back on dialysis, he had a new hemodialysis catheter placed yesterday by vascular surgery, and he will be restarted back on hemodialysis. CT of the brain done shortly after evaluating the patient showed no acute intracranial process chest x-ray basically about the same, continues to show small left and moderate right basilar infiltrate. Has not changed much over the last 1 week, patient remains on antibiotics. Patient was seen today on 12/08/2023, remains in the ICU, intubated and mechanically ventilated, remains on assist-control rate of 20 tidal volume 500 FiO2 35% PEEP of 5 ABG showed a pO2 of 88 pCO2 37 pH of 7.47 hence no changes were made in ventilator settings. Chest x-ray is showing slight increase in his right-sided pleural effusion, however his oxygenation seems to be about the same, and the patient is responding to Lasix given at 80 mg IV push every 12 hours, he is also doing well with hemodialysis he had 2 L removed yesterday and 2 L the day before. Hence will not recommend thoracentesis at this point. But the pleural effusion will need to be closely monitored. Patient remains off propofol he is on Precedex at 0.6 mcg/kg/h. For the last 2 days, and his mentation is not much different from baseline. Continues to open his eyes and does not follow any other instructions has the patient is clearly not ready for weaning trials or extubation. Brought up the issue of tracheostomy again with the , she is still reluctant to proceed with tracheostomy on him at this point. Patient remains on Merrem, remains on TPN but his enteral feeding will be advanced today to full goal, and if that happens then we will can discontinue TPN. Patient is receiving vital AF 1.2@10 mL/h at this point.WBC count is 19.3 hemoglobin 7.6. Basic metabolic profile is normal BUN is 72 creatinine 2.99 blood sugar ranging between 250 up to 334. 12/09/23 - patient seen at bedside today, remaining in the ICU, intubated and mechanically ventilated, remaining on assist-control rate of 20, tidal volume 500, FiO2 30%, PEEP of 5 and oxygen saturation of 100%. Patient is on day 27 of his hospital stay (admitted 11/11), day 15 of this current ICU stay (readmit to the ICU 11/24) and day 15 of this current period of time on the ventilator (placed 11/24). ABG showed pO2 100, pCO2 36, pH 7.47. Chest x-ray was deemed to be stable, however possibly with slight improvement noted on the left with a right-sided pleural effusion remains evident however the patient's oxygenation remains to be about the same. Continue to receive 80 mg IV Lasix every 12 hours and is receiving daily hemodialysis, in which he has been having 2 L removed the past couple of days, hemodialysis yet to occur today. His creatinine is 3.57 (compared to 2.99 yesterday) and BUN 98 (compared to 72 yesterday). Due to this response to diuresis and hemodialysis, no thoracentesis recommended at this point however pleural effusion will need to continue to be monitored. Patient shon off propofol, he is on Precedex at 0.4 mcg/kg/h. Due to his mentation remaining near baseline, neurology had been consulted who ordered an EEG which showed diffuse background slowing of his severe degree which is suggestive for generalized cerebral dysfunction and can be seen with toxic metabolic encephalopathy, as well as the presence of sporadic intermittent, some higher amplitude, sharply contoured waves of generalized distribution. Because of this per neurology's recommendation, patient started on Keppra 500 mg twice daily. The patient does seem to be having some improved mentation, with opening his eyes and responding to commands some of this morning. Spontaneous breathing trial to be attempted today, to see if the patient will be able to come off of mechanical ventilation. If that is unable to occur, discussed with the patient as well as his and one of his daughters that a tracheostomy would be the most appropriate next course of action due to the potential dangers of sustained endotracheal intubation for prolonged period of time. The , while reluctant, seem to acknowledge that this is the appropriate course of action. He remains receiving meropenem 1 g nightly. He remains on TPN 75 mL/h, which she has been on since 11/21 (18), but his enteral feeding has been vital 1.2 AF at 10 mL/h with a goal rate of 80 mL/h. Patient drained 60 mg of serosanguineous fluid from his RAYA. His WBCs increased to 21.5 (compared to 19.3 yesterday), hemoglobin dropped to 7.2 (compared to 7.6 yesterday), hematocrit dropped to 22.0 (compared to 22.9 yesterday) and patient procalcitonin remains elevated at 3.07. 12/10/23 - Patient seen at bedside today, remaining in the ICU, intubated and mechanically ventilated, remaining on assist-control rate of 20, tidal volume 500, FiO2 30%, PEEP of 5 and oxygen saturation of 100%. Patient is on day 28 of his hospital stay (admitted 11/11), day 16 of this current ICU stay (readmit to the ICU 11/24) and day 16 of this current period of time on the ventilator (placed 11/24). ABG showed pO2 93, pCO2 37, pH 7.47, showing evidence of a mild metabolic alkalosis. Chest x-ray today showed stable disease compared to yesterday. He received levo overnight due to atypical blood pressure, patient's TPN was up to 120 due to the change in formula. Patient is scheduled to undergo tracheotomy today (12/09) at 16:30. Per the nurse and the overnight staff patient continues to open his eyes and shows some responsiveness to commands. Per nephrology's recommendation dialysis to be held today due to the patient going for the tracheotomy later, as well as the dip in blood pressure seen after yesterday's dialysis session which required Levophed. Patient's Hgb this morning 6.6, will be given 1 unit today, which will be the second unit he has received during his hospital course. Patient's airway resistance noted to be 3.3 cm/L/s, static lung compliance shown to be 45 mL/cm H2O and dynamic compliance 33 mL/cm H2O. 12/11/23 - Patient seen at the bedside, remaining in the ICU, with a tracheotomy tube and mechanically ventilated while receiving dialysis. Patient remains on assist-control rate of 20, FiO2 30%, PEEP of 5 and has an oxygen saturation of 97%. Patient is on day 29 of the hospital stay (admitted 11/11), day 17 of his current ICU stay (readmitted to the ICU 11/24) and day 17 of his current period of time on the ventilator (placed 11/24). ABG today showed pO2 115, pCO2 38, pH 7.44 continuing to show evidence of a mild metabolic alkalosis. Chest x-ray today showed stable disease. Patient had tracheotomy placed yesterday afternoon (12/09) without any complications. Patient has had 3 consecutive days of attempting spontaneous breathing trials in an effort to wean the patient off the ventilator, all of which failed to this point. Beginning today the patient's antibiotics (meropenem) will be discontinued and we will begin weaning his propofol down from 25 mcg/kg/min. As the patient is weaned off of the propofol, 0.5 Dilaudid and 1 mg IV Ativan to be used every 6 hours as needed. Patient is continuing to receive normal saline 20 cc/h, and has a total of 200 mL of serosanguineous fluid from his RAYA drain. TPN to continue at a rate of 120 mL/h additionally tube feeds, which had been held due to the patient receiving s traight catheter yesterday, will be restarted today with an ultimate goal being to receive enteral nutrition at a rate of 80 mL/h. TPN to continue until able to increase the enteral nutrition to at least 50 mL/h, as per the dietitian's recommendation. Will be exploring the possibility of the patient being moved to select specialty. 12/12/23 - Patient seen at the bedside this morning, in ICU room 253, while receiving and EEG, no significant events overnight. Patient remains with tracheotomy and is mechanically ventilated on assist control with a rate of 20, tidal volume 500, FiO2 30%, PEEP of 5 with an oxygen saturation of 98%. Patient is on day 30 of the hospital stay (admitted 11/11), day 18 of his current ICU stay (readmitted to the ICU 11/24) and day 18 of his current period of time with mechanical ventilation (placed in 11/24). ABG today showed pO2 92, pCO2 36, pH is 7.49 continue to show signs of a combined respiratory and metabolic alkalosis. WBC 17.9, Hgb 7.4, Hct 22.6, PLT 151; sodium 133, potassium 4.0, HCO3 27, BUN 88, creatinine 2.96. Chest x-ray done today continuing to show patchy infiltrate throughout the right lung with layering effusion. Patient is continuing to receive normal saline 20 cc/h, continues to receive Dilaudid 0.5 mg IV push every 6 hours as needed, as well as Ativan 1 mg IV every 6 hours as needed. Patient is no longer maintained on propofol. TPN continues at a rate of 120 mm/h and EN vital AF at 30 mL/h with a goal of 40 mL/h. Once goal is reached, TPN can be discontinued and patient will be switched over to Nepro 50 mL/h. Following the patient having 3 consecutive days of attending spontaneous breathing trials and effort to wean, we will begin trying the patient with CPAP and pressure support in effort to wean, today's trial the patient will be placed on PS 5 and PEEP of 5 for 25-45 minutes, or as he is able to tolerate it. Disc ussed with the patient's the importance of continuing to wean the patient's with trials, in an effort to build up some of the strength in his lungs to better be able to tolerate breathing on his own. Will continue to evaluate for possible placement in a long-term acute care facility. 12/13/23 - Patient seen at the bedside this morning, in ICU room 253, with no significant events overnight noted. Patient remains with tracheotomy and is mechanically ventilated on assist control with a rate of 20, tidal volume 500, FiO2 30%, PEEP of 5 with an oxygen saturation of 98%. Patient is on day 30 one of the hospital stay (admitted to 11/11), day 19 of his current ICU stay (readmitted to the ICU 11/24) and day 19 of his current period of time with mechanical ventilation (placed 11/24). ABG today showed pO2 87, pCO2 36, pH 7.48 continue to show signs of a combined respiratory metabolic alkalosis. WBC 17.3, Hgb 8.0, Hct 25.3, PLT 191; sodium 136, potassium 4.1, BUN 116, creatinine 3.17. This x-ray done today continues to show stable disease. Patient had an EEG completed yesterday (12/11) which showed an abnormal EEG, study being limited because of diffuse myogenic artifact. Background slowing suggestive of severe encephalopathy. Otherwise no appreciable epileptiform discharges, focal slowing, or seizure noted during the exam. Patient continues to receive Dilaudid 0.5 mg IV push every 6 hours as needed, as well as Ativan 1 mg IV every 6 hours as needed. Patient's TPN has been stopped, he is not receiving Nepro at 50 mL/h, which is goal. Patient Solu-Medrol has been discontinued, patient now receiving 30 mg prednisone daily. Patient's trial yesterday with CPAP and pressure support with the patient was sent PS of 5 and PEEP of 5, patient tolerated 40 minutes well it was noted that his respiratory rate increased and his minute ventilation also increased during this time. Will continue with another weaning effort today and continue to reassess how the patient tolerates. He will be receiving hemodialysis today, with the plan to hold over the weekend and then reassess Saturday per nephrology. Additionally IV Lasix has been discontinued on this patient, nephrology did state that he may need to resume receiving the Lasix if the urine output tapers. Progress note dated December 14, 2023. The patient is seen today in room 253. The patient remains on the mechanical v entilator. His settings include volume assist-control, rate 20, tidal volume 500, FiO2 30%, PEEP of 5. Blood gases show pO2 of 76, pCO2 of 36, pH of 7.47. The patient is getting saline at 10 cc an hour, and Nepro at 50 cc an hour which is goal. The patient will go back on pressor support of 5 and CPAP of 5 today. Yesterday, he spent 2-1/2 hours on pressure support. The patient did have a tem perature last night. He discussed some purulent drainage at the wound site. I have asked surgeon to come back and see the patient. In addition, the nurse will get blood, urine, sputum, and wound cultures going. He is not on any antibiotics. We will check a procalcitonin level. White count of 16.7, hemoglobin 8.1, hematocrit 24.5, platelet count is normal. Sodium 135, potassium 3.9, chlorides 103, CO2 24, BUN 106, creatinine 3.04. Calcium is 7.1. Magnesium is 2.0. Urine is yellow, with 1+ protein, 6 WBCs, and rare bacteria. Chest x-ray shows a stable chest x-ray, which is largely unchanged. Progress note dated December 15, 2023. 73-year-old male seen again in room 253. The patient remains on mechanical ventilator. Blood gases show pO2 of 78, pCO2 of 36, pH of 7.47. The patient is getting saline at KVO, and Nepro at 50 cc an hour which is goal. The patient did a spontaneous breathing trial yesterday, and went about 6 hours on PSV 5, CPAP of 5. The patient's procalcitonin level was elevated at 1.92. We added back Zosyn. Yesterday we did sputum, blood, urine, and wound cultures. The patient will have another spontaneous breathing trial today. Current labs include a white count 16.3, hemoglobin 7.5, hematocrit 22.6, and a normal platelet count. Sodium 138, potassium 3.5, chlorides 105, CO2 24, BUN 125, and creatinine 3.22. Glucose is 220. Calcium is 6.9. Chest x-ray shows a right- sided pleural effusion, and some similar changes, to the previous x-ray. This is a 73-year-old white male with history of chronic abdominal pain for the last 8 months has been treated with Protonix 40 mg daily for the last 3 months with no improvement. Patient had a 22 pound weight loss in the last [address] of the abdomen and pelvis 3 weeks ago showed thickening of the antral wall with pathological adenopathy posterior to the stomach suspicious of neoplasm. Today the patient underwent elective upper endoscopy to evaluate further, patient received IV sedation by anesthesia endoscope was inserted into the mouth, esophagus was intubated without any difficulty there was evidence of large amount of liquid and solid food noted in the stomach suggestive of gastric out let obstruction. Scope could not be advanced through the pylorus, however in the prepyloric area there was a large superficial ulceration identified with multiple biopsies were done from this area. The body cardia and fundus could not adequately visualize because of large amount of retained food in the stomach. Scope was withdrawn back to the stomach and upon careful examination the mucosa of the antrum body and cardia as well as the fundus appeared normal. Procedure was being performed and biopsies were done patient threw up and subsequently became hypoxic there was clearly evidence of witnessed aspiration anesthesia intubated the patient, procedure was terminated, and the patient was transferred to the ICU, this consult was initiated. Patient is now on assist- control rate of 20 tidal volume 500 FiO2 70% PEEP of 10 ABG is pending, earlier ABG showed profound hypoxia patient is on propofol at 50 mcg/kg/min, next ABG is pending. Chest x-ray showed chronic changes without evidence of acute pulmonary disease. 12/20/2023, the patient is being seen for a follow-up. More alert and awake compared to yesterday. He is able to move his fingers and toes on today's evaluation. Following commands. Nevertheless, his J tube has been clogged and was unable to utilize the tube that has been some leaks around the tube. No abdominal distention. No nausea or emesis. Hemodynamically stable. Will undergo hemodialysis today. He remains on pressure control mode of mechanical ventilation at rate of 16, pressure of 10, +5 PEEP with an FiO2 of 30%. Chest x-ray from today is essentially unchanged with a stable cavity in his right upper lobe. White cell count of 15.7, hemoglobin 7.2, platelet count is 203, blood gas showed a pH of 7.49 with a pCO2 of 33 and pO2 of 73. BUN is 88 with a creatinine 1.89 and sodium is at 141 with a potassium level of 4.1. He is producing adequate amount of urine output. Fluid balance has been -900 cc over the past 24 hours. Normotensive. Remains on a combination of Zosyn and daptomycin. Remains on Levemir insulin 24 units daily. This is currently on hold as the patient has not been able to obtain enteral feeding. Wound VAC still in place. 12/21/2023, the patient remains on the mechanical ventilator. Overnight, the patient experienced discomfort in his abdomen and he was restless. Based on that, the patient was placed on a higher dose of Precedex which is currently running at 0.6 mcg/kg/h. The patient was also asynchronous with the mechanical ventilator and based on that, the patient was switched to an AC mode and currently is at a rate of 16, tidal volume of 400, FiO2 of 30% with a PEEP of 5. The patient is adequately sedated for now. Chest x-ray remains unchanged. Tracheostomy tube in place and the patient is having increased amount of respiratory secretions. J tube needs to be replaced today and this will be done by his general surgery as the tube remains clogged. Urine output is low order of 30 cc an hour. Afebrile. Remains on Zosyn and daptomycin. White cell count is 16.9, hemoglobin 7.4 and a platelet count of 280. Blood gas from today showed a pH of 7.46 with a pCO2 of 36 and pO2 of 82. Sodium levels of 144, BUN is 19 with a creatinine of 2.2 and a serum bicarb is at 23. The abdominal wound remains unchanged. RAYA drain is serosanguineous. 12/22/2023, patient remains on Precedex at 0.4 mcg/kg/min. Arousable. Communicates. Profoundly weak. Remains on the mechanical ventilator with a rig ht lung abscess. SIMV mode mode rate of 16, tidal volume of 400, FiO2 30% with a PEEP of 5, with a pressure support of 8. Blood gas showed a pH of 7.46 with a pCO2 of 32 and a pO2 of 82. Chest x-ray remains unchanged with a right upper lobe cavitating lesion/opacity and a suspected lung abscess. This is rated Pseudomonas and the patient remains on IV Zosyn. He remains on daptomycin. Urine output is in order of 50 cc an hour.. The J-tube was unplugged yesterday. Nevertheless, the tube itself is malfunctioning and there is drainage around the tube requiring dressing changes the dressings being soakedConstantly. The patient's white cell count is 12.3 with a hemoglobin 7.7. Sodium is at 149, BUN 91 with a creatinine of 2.3. Bicarb is at 20. Undergoing hemodialysis periodically. Last hemodialysis was on 12/21/2023. Currently NPO. Abdominal wound is clean and the patient has a wound VAC in place. RAYA drain output is serosanguineous. Patient was seen today on 12/23/2023, remains in the ICU, intubated and mechanically ventilated. Patient is on IMV with pressure support/IMV 16, pressure support of 8, tidal volume 400, PEEP of 5. Patient seems to be doing well with that kind of mode of mechanical ventilation, ABG showed a pO2 of 76 pCO2 28 pH of 7.50. I changed his rate from 16-8 kept him otherwise on the same ventilator settings. Plan to gradually go down on the IMV rate until we can get him on pressure support of 8 and CPAP. Patient is requiring Precedex at 0.4 m cg/kg/h, he is on D5W at 50 cc/h. Remains on antibiotics in the form of daptomycin and Zosyn, chest x-ray continues to show bilateral airspace disease and right upper lobe lung abscess. Continues to have a bit of a leak from his J-tube being addressed by surgery has a wound VAC, and he had a RAYA drain. Mentation arce the patient is a bit more appropriate, opens his eyes, follows very simple instructions, seems to comprehend. Patient has a left brachial PICC line, he also has a left groin hemodialysis catheter. WBC count is 10.1 hemoglobin is 7 sodium is 149 potassium 4 chloride is 121 BUN is 86 creatinine 2.31. Blood sugar is 173. Remains on enteral feeding via J-tube, a bit of a leak is noted, and surgery is to address this. Sputum cultures have grown Klebsiella and Pseudomonas and remains on proper antibiotics Patient was seen and examined today on 12/24/2023, patient remains in the ICU, and mechanically ventilated. On IMV mode of 8 pressure support of 8 tidal volume 400 FiO2 30% and PEEP of 5 ABG showed a pO2 of 81 pCO2 32 pH of 7.45. Patient remains on daptomycin and Zosyn, remains on Precedex at 0.4 mcg/kg/h intermittently receiving Dilaudid for pain. Feeding arce is presently on hold, patient had a leak around the jejunostomy tube, surgery is recommending a trick le feed or TPN if could not use the J-tube. Patient is arousable follows simple instructions, and today I had a chance to get rid of the IMV mode, and I am recommending a pressure support of 8 and CPAP. For the last few hours the patient has been tolerating this mode of mechanical ventilation, however he is not quite ready to go to [facility] at this point. Chest x-ray continues to show significant opacity in the right upper lobe and airspace disease in the right lower lobe. Previously patient had a CT of the chest showing right upper lobe abscess. Again he remains on Zosyn and daptomycin.Labs today showed WBC count of 10.6 hemoglobin 7.8 sodium is 147, patient is now on D5W at 100 cc an hour his bicarb is 19 BUN 74 creatinine 2.08, gradually improving, his last hemodialysis was on the , nephrology is considering removing his dialysis catheter in the left groin and I believe that is appropriate patient was seen and examined today on 12/25/2023, remains in the ICU, intubated and mechanically ventilated. Patient had to be placed back on assist-control mode of mechanical ventilation yesterday, mostly because he developed significant agitation and restlessness, and ongoing persistent cough with some air leak from the cough of that tracheostomy. Patient had to be sedated and he was placed on propofol and he remains on propofol at 50 mcg/kg/min. Maximal dose of Precedex yesterday could not calm him down, hence we had to transition him from pressure support/CPAP mode of mechanical ventilation to assist-control mode of mechanical ventilation and fully sedated him with propofol replacing Precedex. Today the patient is sedated, he is on assist-control rate of 16 ti sierra volume 400 FiO2 30% PEEP of 5 ABG showed a pO2 of 98 pCO2 30 pH of 7.45 chest x-ray is basically the same showing significant airspace disease in the right upper lobe and right lower lobe. Remains on daptomycin and Zosyn. His IV fluid was transitioned to D5 4 5 from D5W sodium today is 141. His urine output is about 40 to 50 cc/h, renal profile is improving with steady trending of creatinine down. Patient continues to have leakage around the jejunostomy tube. Patient is being followed by surgery no specific recommendation made except to continue the same and except the leak as it isLabs today showed WBC count of 11.5 hemoglobin 8.2 basic metabolic profile is normal BUN is 60 creatinine down to 1.81 Patient seen today on 12/26/2023, remains in the ICU intubated mechanically ventilated sedated patient is on assist-control rate of 16 tidal volume 400 FiO2 30% PEEP of 5 ABG showed a pO2 of 82 pCO2 34 pH of 7.43. Patient is now on TPN at 30 cc/h propofol at 50 mcg/kg/min hemoglobin is down to 6.8 today and he is receiving a unit of packed RBCs. His IV fluids at 50 cc/h in the form of 0.9 normal saline. He was last night on a small dose of norepinephrine at 0.01 mcg/kg/min and is presently on hold. Antibiotics arce patient is on Zosyn daptomycin and Eraxis. Chest x-ray continues to show significant airspace disease involving the right upper lobe and right lower lobe not much of a change noted on the chest x-ray. Clinically the patient is about the same, today I plan to discontinue propofol, arrange for the patient to go on Precedex, and assess mental status off sedation. If tolerated, may transition the patient again to pressure support and CPAP type of mechanical ventilation, but he is not ready to go to that transition yet. WBC count is 11.6 hemoglobin 6.8. ABG today showed a pO2 of 82 pCO2 34 pH of 7.43 potassium is 3.3 being addressed accordingly BUN is 53 creatinine 1.84 Patient was evaluated today on 12/27/2023, remains in the ICU intubated and mechanically ventilated. Patient is presently on IMV mode of mechanical ventilation with pressure support rate of 16 pressure support 14 tidal volume 400 FiO2 30% and PEEP of 5 ABG showed a pO2 of 99 pCO2 31 pH of 7.44. Intermittently the patient has been experiencing episodes of extreme agitation and restlessness he is on Precedex at 0.5 mcg/kg/h. Patient is on IV fluid 0.9 normal saline at 50 cc/h and is also receiving TPN. Remains on Eraxis daptomycin and Zosyn patient is intermittently requiring Dilaudid, Ativan does not seem to help his agitation and restlessness. But Dilaudid does hence I would recommend 0.5 mg every 2-3 hours as needed for agitation. Patient has good urine output roughly about 100 cc/h. Continues to have leakage around the jejunostomy tube, and patient is undergoing the J-tube exchange today. Family is at bedside, seems to be quite anxious about his overall condition, and I explained to the that we are doing the best we can considering his critical illness situation and critical illness polyneuropathy. Patient is profoundly weak, and weaning the patient from mechanical ventilation is almost impossible. At least not at this point yet WBC count is 10.9 hemoglobin is 8.1 basic metabolic profile is normal BUN is 46 creatinine 1.90 patient has been off hemodialysis since the . Chest x-ray continues to show stable findings with right upper lobe opacity and right lower lobe opacity and possibly a small right-sided pleural effusion Was evaluated today on 12/28/2023, patient remains in the ICU, intubated and mechanically ventilated, on IMV mode of mechanical ventilation rate set at 16 he is on pressure support of 14 tidal volume 400 FiO2 30% and PEEP of 5 ABG showed a pO2 of 113 pCO2 31 pH of 7.43. No major events overnight, patient is still requiring Precedex at 0.7 mcg/kg/h. He is on TPN as we could not use his jejunostomy tube, no jejunostomy tube was done yesterday, IV fluid is 0.9 at 50 cc/h remains on TPN at 65 cc/h patient is on Eraxis daptomycin and Zosyn. Chest x-ray is showing improvement in his right upper lobe airspace disease/lung abscess and there is a slight improvement in his right lower lobe opacity. Kathryn ent is arousable but does not follow any instructions, patient gets agitated easily if aroused and he started gagging on the tracheostomy tube. Family is at bedside, again updated on his condition. WBC count is 7.6 hemoglobin 7.9. Basic metabolic profile is normal BUN is 45 creatinine down to 1.51 patient has not had any dialysis since 12/17, his renal functioning and urine output continues to improve, hence I am strongly recommending removing his dialysis catheter Patient was seen on 12/29/2023, remains intubated and mechanically ventilated, in the ICU, on IMV of 16 tidal volume 400 FiO2 30% PEEP of 5 ABG showed a pO2 of 105 pCO2 31 pH of 7.45. Remains on Precedex at 0.8 mcg/kg/h, remains on TPN at 65 cc/h IV fluid 0.45 at 50 mL/h remains on multiple antibiotics and antifungal including Eraxis daptomycin and Zosyn. His hemodialysis catheter has been removed, urine output has been excellent renal functioning is improving chest x- ray is showing improvement in his right upper lobe airspace disease/pulmonary abscess. Right lower lobe seems about the same with chronic opacity and possibly some small right-sided pleural effusion. Family is at bedside, patient is arousable but does not follow any instructions. Gets extremely restless and agitated easily hence patient is receiving Dilaudid which seems to be working much better for this patient than benzodiazepines. And we are trying to avoid Ativan, trying to avoid any propofol as much as possible. I believe his drainage from the jejunostomy tube is becoming less and less, hence we could start considering early next week arrangement to possibly transfer the patient to a select care specialty. In the meantime I am recommending that we go down on the IMV rate by 2 every 2 hours the goal is pressure support of 14 and IMV of 8. Progress note dated December 30, 2023. This is a 73-year-old male who is now been in the hospital for 48 days. The patient was admitted back on November 11. Currently, he is seen in the intensive care unit, room 253. The patient is currently on synchronized IMV mode, rate of 8, pressure support of 14, PEEP of 5, FiO2 30%, and a backup tidal volume of 400 cc. Blood gases showed a pO2 of 87, pCO2 of 31, and a pH of 7.42. The patient will be switched back to the volume assist-control mode, as he is not ready to be weaned. His minute volume is nearly 18 L/min. He is breathing at a rate of about 40 times per minute. He currently is on Precedex 0.8 mics per kilogram per minute, TPN at 90 cc an hour, and half-normal saline at 50 cc an hour. The patient continues on Zerbaxa, Eraxis, and daptomycin. White count 11.5, hemoglobin 8.1, hematocrit 25, platelet count of 78,000. Sodium 142, potassium 4.2, chlorides 119, CO2 20, BUN 42, and creatinine 1.22. Glucose is 178. Albumin is 1.9. Sputum from December 24 shows evidence of Citrobacter freundii and Pseudomonas aeruginosa. Blood cultures from the same day were positive for Staphylococcus. Chest x-ray shows extensive pleural-parenchymal opacities, in both lungs, and the chest x-ray is largely unchanged from the pre vious days x-ray. Progress note dated December 31, 2023. 73-year-old male now here in the hospital for 49 days. The patient was admitted way back on November 11. He is seen today in room 253. Family members are at the bedside. The patient currently is on volume assist-control, rate 32, tidal volume 400, FiO2 30%, PEEP of 5. Blood gases show pO2 of 94, pCO2 of 35, pH is 7.40. Unfortunately, the patient is not synchronous with the ventilator, and so we switched to pressure regulated volume control or VC plus. We set an inspiratory time at 0.8 seconds, and the targeted tidal volume of 450 cc. The patient is on TPN at 70 cc an hour, saline at KVO, propofol at 40 mcg/kg/min. The patient continues on Eraxis, daptomycin, and Zerbaxa. Current labs include a white count 12.8, hemoglobin 7.3, hematocrit 22.4, and a platelet count of 67,000. Sodium 140, potassium 3.6, chlorides 119, CO2 20, BUN 43, creatinine 1.15. Glucose is 223. Calcium is 6.8. Today's chest x-ray is largely unc hanged. Progress note dated January 01, 2024. 73-year-old male seen again in room 253. The patient has not been in the hospital for 50 days. The patient continues on the mechanical ventilator. He is on pressure regulated volume control, or VC plus. His target tidal volume is 450 cc and his inspiratory time RTI is 0.8 seconds. His respiratory rate is 32. PEEP is 5, and FiO2 is 30%. Blood gases show pO2 of 98, pCO2 of 34, and a pH of 7.40. The patient continues on propofol at 15 mcg/kg/min, and TPN at 90 cc an hour. The patient also continues on Zerbaxa, daptomycin, and Eraxis. White count is 12.1, hemoglobin 7, hematocrit 22.0, and platelet count 69,000. Sodium 141, potassium 4.3, chlorides 120, CO2 19, BUN 44, creatinine 1.11. Calcium is 7. Chest x-ray shows a right-sided pleural effusion, with adjacent atelectasis and/or consolidation. There is a small left-sided pleural effusion as well. Progress note dated January 02, 2024. 73-year-old male seen again in room 253. The patient has not been here in the hospital for 51 days. He remains on mechanical ventilator. He is on the pressure regulated volume control modality no also noted his VC plus. The patient is on a rate of 32 breaths/min, PEEP of 5, FiO2 30%, inspiratory time her TI was 0.8, and a target tidal volume of 450 cc. Blood gases show pO2 of 90, pCO2 34, pH is 7.40. The patient is receiving TPN at 90 cc an hour, propofol at 20 mcg/kg/min, and has received a total of 6 units of packed red blood cells. The patient is going to get Dilaudid and Ativan scheduled. Dilaudid will be 1 mg every 2 hours, and Ativan 1 mg every 6 hours. The patient continues on daptomycin, Eraxis, and Zerbaxa. White count is 10, hemoglobin 6.5, hematocrit 20.3, platelet count 83,000. Sodium 140, potassium 4.6, ch lorides 119, CO2 20, BUN 45, creatinine 1.08. Most recent cultures are from December 24, showing evidence of Citrobacter from the and Pseudomonas aeruginosa, in the sputum. Blood cultures, on the same day, show evidence of Staphylococcus species. Chest x-ray shows extensive pleural-parenchymal opacities in the right hemithorax, and patchy opacity at the left lower lobe area. Progress note dated January 03, 2024. 73-year-old male seen in room 253. The patient has now been in the hospital for 52 days. He remains on mechanical ventilator, with the modality being the pressure regulated volume control modality, also known as VC plus. The patient's inspiratory time is 0.8 seconds, and his targeted tidal volume is 450 cc. Rate is 32, FiO2 30%, PEEP of 5. Blood gases show pO2 of 95, pCO2 of 34, pH of 7.41. The patient is on TPN at 90 cc an hour, propofol at 15 mcg/kg/min, saline at 10 cc an hour. Daptomycin and Eraxis have been discontinued. Zerbaxa is on day #6 of . We are going to DC the metoprolol and midodrine from the [facility]. Apparently, the patient has been [facility] twice, [facility] by his [facility]. White count is 1.5, hemoglobin 8, macro 24.4, platelet count 78,000. Sodium 139, potassium 5.3, chlorides 119, CO2 20, BUN 44, creatinine 1.05. Glucose 192. Calcium 7.1. Magnesium 1.8. The chest x- ray today, is largely unchanged. Progress note dated January 04, 2024. 73-year-old male seen in room 253. The patient has now been in the hospital for 53 days. He remains on the mechanical ventilator. He is on pressure regulated volume control or VC plus, but the inspiratory time is 0.8 seconds, and a targeted tidal volume of 450 cc. His rate is 32, FiO2 is 30%, PEEP of 5. Blood gases show pO2 of 81, pCO2 of 35, and a pH of 7.44. He is on propofol at 10 mcg/kg/min, TPN at 90 cc an hour, and saline at 10 cc an hour. His only anti biotic currently is Zerbaxa. White count 13.4, hemoglobin 8.1, hematocrit 25, platelet count 95,000. Sodium 141, potassium 5.2, chlorides 114, CO2 23, BUN 47, creatinine 1.10. Glucose is 110. Calcium 7.4. Albumin is 1.8. Chest x- ray shows a largely unchanged evaluation. Progress note dated January 05, 2024. 73-year-old male seen in room 253. The patient has now been in the hospital for 54 days. He remains on mechanical ventilator. He is on pressure regulated volume control, with inspiratory time of 0.8 seconds, and a targeted tidal volume of 450 cc. Rate is set at 32, FiO2 30%, PEEP of 5. Blood gases show pO2 of 98, pCO2 35, and a pH of 7.42. The patient's propofol has been weaned off. He is just getting scheduled Dilaudid and Ativan. He is getting TPN at 90 cc an hour, saline at 10 cc an hour. His only antibiotic is Zerbaxa, as Eraxis, and daptomycin has been discontinued. The patient will get a spontaneous breathing trial today with pressure support of 10 and CPAP of 5. White count 11.3, hemoglobin 7.6, hematocrit 23.4, platelet count 100,000. Sodium 138, potassium 3.9, chlorides 116, CO2 21, BUN 46, Creatinine 1.07. Albumin Is 1.9. Chest x- ray is largely unchanged. Patient was reevaluated today on 01/17/2024, patient was supposed to be sent home today with hospice to follow at home, however the family today/ change her mind, and asking to consider palliative care, she is also asking for a second opinion but she is not specific about the second opinion, explained to her that the only 3 underwear cutter that we have in this institution is myself Dr. Livia espinoza and Dr. Nieves and we have all given the same opinion, and if she could find a place where they could accept him to transfer to another institution, I will be more than happy to do so patient was declined transfer to [facility] he was also declined transfer to the [facility]. Today he is on pressure control mode of mechanical ventilation basically unchanged compared to yesterday. He remains on Precedex 1.4 mcg/kg/h remains on TPN, still could not use his J-tube. Patient is intermittently on Dilaudid, antibiotics arce he is receiving Cipro and fluconazole. Patient had multiple attempts to wean, could not tolerate more than few hours of pressure support of 14 and CPAP this has been done quite frequently and sometimes he does not even tolerate the switch from pressure control mode of mechanical ventilation to pressure support of mechanical ventilation. Patient is definitely a failure to wean and multiple attempts have failed. Patient has critical illness polyneuropathy he continues to have some nonspecific airspace disease bilaterally continues to have a pigtail catheter in place, and continues to have air leak,WBC count today is 16.3 hemoglobin 8.1 electrolytes showed low potassium of 3.3 being addressed accordingly renal profile is normal. Chest x- ray today is actually showing improvement compared to the previous x-rays he had all along. With significant improvement in the right upper lobe and the right lower lobe, continues to have some infiltrate in the left lower lobe Castriz seems to be intact Patient was seen01/18/24, remains in the ICU, remains intubated and mechanically ventilated, he is on pressure control mode of mechanical ventilation with pressure control of 15, DI of 0.8, rate 20, FiO2 30% and PEEP of 5 no ABG was done this morning did not feel to be necessary. Patient had a WBC of 15.8 hemoglobin 7.4. Basic metabolic profile is normal renal profile is normal continues to have bilateral airspace disease on chest x-ray specially the right upper lobe, and left lower lobe. Continues to have a pigtail catheter in place and continues to drain and he continues to have a air leak. Patient remains on ciprofloxacin, he is also on fluconazole, tobramycin was added by infectious disease on the case. Patient is getting now physical therapy and Occupational Therapy, he remains on Precedex at 1.3 mcg/kg/h he is also on TPN at 90 cc/h chest x-ray was noted and again he has bilateral airspace disease. Patient remains frail, chronically ill, and he does have clearly critical illness polyneuropathy. No plans by surgery to do much about his J-tube, continues to have a wound VAC in place. Today the patient will be given another trial of pressure support and CPAP, and will document how long he could do on pressure s upport mode of mechanical ventilation Patient was seen today on 01/19/2024, patient remains in the ICU, intubated and mechanically ventilated. Patient tolerated about 2 hours of pressure support and CPAP weaning yesterday, then he became restless, agitated, and went on to develop this ongoing cough. Hence had to be placed back on mechanical ventilation and remains on pressure control mode of mechanical ventilation with PI 15 ti 0.8 per 820 FiO2 30% PEEP of 5. Patient continues to have episodes of agitation and he has been on Precedex at 1.1 mcg/kg/h. Remains on TPN at 90 cc/h remains on IV fluid of 0.9 at 50 cc/h sodium is 129, that we will correct with 0.9 normal saline. Patient remains on tobramycin and ciprofloxacin and fluconazole. Continues to have right-sided pigtail catheter in place, and continues to have ongoing air leak. Chest x-ray continues to show airspace disease in both lungs but more concerning is the right upper lobe abnormality. Multiple attempts have been made in the past to wean the patient, and has not been able to tolerate more than few hours of pressure support and CPAP, will try another weaning trial today with pressure support of 14 and CPAP. Unfortunately I cannot place the patient on Seroquel and hoping to get rid of Precedex, mostly because we cannot use his GI tract. Fanny arce the patient remains on TPN. Progress note dated January 20, 2024. 73-year-old male who is now been in the hospital for 69 days. I last saw the patient on January 05, 2024. Currently, the patient remains in the intensive care unit, room 253. He spent about 20 hours on pressor support of 14 and CPAP of 5, yesterday, and is currently back on pressor support and CPAP. When not on pressor support and CPAP, the patient is on pressure assist control, with an inspiratory pressure of 15 cm of water, and inspiratory time is 0.8 seconds. Respiratory rate 20, PEEP 5, and FiO2 30%. The patient remains on TPN at 90 cc an hour, and saline at 50 cc an hour. He continues on Precedex at 1 mcg/kg/h. The patient is also on ciprofloxacin, tobramycin, and Diflucan. Current labs are good a white count 16.3, hemoglobin 8.3, hematocrit 25.3, and a normal plate let count. Sodium 130, potassium 3.7, chlorides 103, CO2 22, BUN 30, creatinine 0.65. Albumin is 2.2. Glucose is 195. Most recent sputum shows evidence of Pseudomonas aeruginosa. Chest x-ray is showing chronic changes, with no appreciable change. Progress note dated January 21, 2024. 73-year-old male who has now been in the hospital for 70 days. The patient is seen again today in room 253. Since yesterday, the patient has been on pressor support of 14, CPAP of 5. FiO2 is 30%. He did not need to go back on pressure assist control ventilation. He is currently on Precedex and 0.9 mcg/kg/h, TPN at 90 cc an hour, saline at KVO. The patient had a pretty uneventful night. He does have some episodes of coughing. We did add some aerosolized lidocaine, which seemed to help initially, but may be more recently not so much. White count 16.6, hemoglobin 7.8, macro 24.4, and platelet count normal. Sodium 129, potassium 3.7, chlorides 102, CO2 21, BUN 27, creatinine 0.59. Glucose 168. Magnesium 1.4. Most recent sputum culture showed evidence of Pseudomonas aeruginosa. No chest x-ray today. The patient is currently on tobramycin, ciprofloxacin, and fluconazole, as per infectious diseases. Progress note dated January 22, 2024. 73-year-old male who is now been here for 71 days. The patient is seen today in room 253. He continues on pressure support of 14, CPAP of 5. The patient's FiO2 is 30%. He is getting TPN at 90 cc an hour, saline at 50 cc an hour, and Precedex at 0.5 mcg/kg/h. He continues on ciprofloxacin, tobramycin, and fluconazole. We will attempt some trach collar today. White count 14.9, hemoglobin 7.9, hematocrit 24.6, platelet count 399,000. Sodium 130, potassium 3.6, chlorides 104, CO2 22, BUN 25, creatinine 0.64. Glucose is 180. Albumin i s 2.3. Progress note dated January 23, 2024. 73-year-old male seen today in room 253. Since about noon yesterday, the patient's been on trach collar 40%. Prior to that, the patient was on pressor support and CPAP. The patient continues on TPN at 90 cc an hour, saline at 50 cc an hour. The patient continues on ciprofloxacin, and fluconazole. In addition, the patient is on Precedex 0.5 mcg/kg/h. We are hoping to get the patient to long-term acute care today. Labs today include a sodium 131, potassium 3.7, chlorides 102, CO2 23, BUN 22, creatinine 0.67. Glucose is 164. Calcium 7.6. Albumin 2.5. Most recent sputum sample from January 06, shows evidence of Pseudomonas aeruginosa. No chest x-ray today. Note dated January 24, 2024. 73-year-old male seen today in room 253. The patient has been on 40% trach collar, for more than 2 days. The patient continues on TPN at 90 cc an hour, saline at 50 cc an hour. Precedex has been weaned off. The patient continues on alternative medications such as Ativan and Dilaudid. Current labs include a white count 15.9, hemoglobin 7.8, hematocrit 24.4, and a normal platelet count. Sodium 130, potassium 3.5, chlorides 106, CO2 23, BUN 21, creatinine 0.67. Albumin is 2.3. Objective - Vital Signs Vital signs: Vital Signs Temp 98.7 F 01/24/24 09:00 Pulse 98 01/24/24 10:26 Resp 34 H 01/24/24 10:26 BP 158/97 01/24/24 09:00 Pulse Ox 100 01/24/24 09:00 FiO2 40 01/24/24 10:14 Intake & Output 01/23/24 01/24/24 01/24/24 18:59 06:59 18:59 Intake Total 3433.02 3104.433 1070 Output Total 1221 1505 150 Balance 2212.02 1599.433 920 Weight 105.5 kg Intake: IV 2059 2020 470 0.9 Normal Saline @ KVO 110 120 10 Ciprofloxacin/Dextrose 200 200 Pmx 400 mg In Dextrose/ Water 1 200ml.bag @ 200 mls/hr IVPB Q8H [facility] Rx#: [id number] Fat Emulsion 20% 250 ml 210 21 In Empty Bag 1 bag @ 21 mls/hr IV [id number] [facility] Rx#:[id number] Fluconazole in NaCl,Iso- 100 Osm 200 mg In Saline 1 100ml.bag @ 100 mls/hr IVPB DAILY [facility] Rx#: [id number] Sodium Chloride 0.9% 1, 450 600 100 000 ml @ 50 mls/hr IV . Q20H [facility] Rx#:[id number] TPN 990 1080 360 Intake, IV Titration 1373.02 1083.433 600 Amount Dexmedetomidine/0.9% NaCl 124.02 58.933 (Pmx) 400 mcg In Empty Bag 1 bag @ 0.2 MCG/KG/HR 5.2 mls/hr IV .[id number] [facility] Rx#:[id number] Fluconazole in NaCl,Iso- 200 Osm 200 mg In Saline 1 100ml.bag @ 100 mls/hr IVPB DAILY [facility] Rx#: [id number] Magnesium Sulfate-D5w Pmx 200 1 gm In Dextrose/Water 1 100ml.bag @ 100 mls/hr IVPB Q1H [facility] Rx#: [id number] Parenteral Electrolytes 1049 1024.5 20 ml Sodium Acetate 34 meq Potassium Chloride 16 meq Magnesium Sulfate gm 0.5 gm Sodium Phosphate 9 mmol In Amino Acids 5 % /Dextrose 20 % 1,000 ml @ 90 mls/hr IV .BY DURATION [facility] Rx#: [id number] Potassium Chloride 10 meq 200 200 In Water For Injection 1 100ml.bag @ 100 mls/hr IVPB Q1H [facility] Rx#: [id number] Output: Chest Tube Drainage 20 15 Chest Tube Right 20 15 Drainage 50 90 Right Abdomen 50 90 Urine 1150 1400 150 Stool 1 Other: Voiding Method Indwelling Catheter Indwelling Catheter # Bowel Movements 1 ABP, PAP, CO, CI - Last Documented Arterial Blood Pressure 173/76 - Exam No acute distress, somewhat lethargic, in no acute distress, with a midline tracheostomy tube. Patient is currently on 40% trach collar HEENT examination is grossly unremarkable. Neck supple. Full range of motion. No adenopathy thyromegaly or neck vein distention. Midline tracheostomy tube noted. Trach collar in place. Cardiovascular examination reveals regular rhythm rate. S1-S2 normal. No S3 or S4. No discernible murmur noted. Lungs reveal mild scattered rhonchi. No wheezes or crackles. Breath sounds equal. Saturations are 97%. Abdomen soft, without bowel sounds. Extremities are intact. No cyanosis clubbing or edema. Skin is without rash or lesion. Neurologic examination is somewhat improved. - Labs CBC & Chem 7: 01/24/24 05:53 01/24/24 05:53 Labs: Abnormal Lab Results - Last 24 Hours (Table) 01/23/24 01/23/24 01/23/24 Range/Units 12:27 17:57 23:33 WBC (3.8-10.6) k/uL RBC (4.30-5.90) m/uL Hgb (13.0-17.5) gm/dL Hct (39.0-53.0) % RDW (11.5-15.5) % Sodium (137-145) mmol/L BUN (9-20) mg/dL Glucose (74-99) mg/dL POC Glucose (mg/dL) 164 H 147 H 127 H (70-110) mg/dL Calcium (8.4-10.2) mg/dL Magnesium (1.6-2.3) mg/dL Alkaline Phosphatase (38-126) U/L Albumin (3.5-5.0) g/dL 01/24/24 01/24/24 01/24/24 Range/Units 05:18 05:53 05:53 WBC 15.9 H (3.8-10.6) k/uL RBC 2.66 L (4.30-5.90) m/uL Hgb 7.8 L (13.0-17.5) gm/dL Hct 24.4 L (39.0-53.0) % RDW 16.9 H (11.5-15.5) % Sodium 130 L (137-145) mmol/L BUN 21 H (9-20) mg/dL Glucose 115 H (74-99) mg/dL POC Glucose (mg/dL) 134 H (70-110) mg/dL Calcium 7.2 L (8.4-10.2) mg/dL Magnesium 1.5 L (1.6-2.3) mg/dL Alkaline Phosphatase 196 H (38-126) U/L Albumin 2.3 L (3.5-5.0) g/dL Assessment and Plan Assessment: Acute hypoxemic respiratory failure with failure to wean from mechanical ventilation, S/P tracheostomy/PEG tube on December 10, 2023. Respiratory failure, requiring reintubation, on November 25, 2023. Acute hypoxic respiratory failure requiring intubation/mechanical ventilation secondary to aspiration during EGD on 11/12/2023. Patient was extubated on 11/14/2023. S/P J-tube placement 11/16/2023, which continues to leak. Septic shock. Acute kidney injury secondary to sepsis, and ATN. Acute bowel obstruction, diagnosed via CT scan, November 24, 2023. Acute aspiration pneumonia. Acute aspiration during upper endoscopy most likely secondary to gastric outlet obstruction secondary to non-Hodgkin's lymphoma. Chronic abdominal pain, secondary to B-cell lymphoma. Unexplained weight loss most likely secondary non-Hodgkin's lymphoma involving the stomach. Paroxysmal atrial fibrillation. Chronic anemia. Plan: Plan dated November 21, 2023. The patient is seen today in room 517. The patient is on 3 L of oxygen. He continues on Zosyn. Continues on tube feeds. He had a CT scan of the abdomen and pelvis. His respiratory status is improved. We will continue to follow. Prognosis is guarded. Labs, x-rays, medications are reviewed. The patient is apparently scheduled for an outpatient PET scan. Plan dated November 22, 2023. The patient appears very stable. His is in the room with him. Labs, x- rays, and medications are reviewed. The patient continues on Zosyn. Resting room air saturation was 89%. Chest CT, revealed bilateral patchy and basilar infiltrates. We will continue to follow make recommendations along the way. Prognosis is guarded. The patient was diagnosed with a gastric outlet obstruction, secondary to non-Hodgkin's lymphoma. Plan dated November 23, 2023. The patient is seen today in room 517. He is resting comfortably. He continues on saline at 10 cc an hour. He is getting tube feedings with Pivot at 20 cc an hour. He has been weaned down to 2 L of oxygen. He continues on Zosyn. Labs, x-rays, and all medications are reviewed. Prognosis is guarded. We will continue to follow. Plan dated November 24, 2023. The patient will be admitted to the intensive care unit. I believe he deserves to be an ICU patient. I did speak to the surgeon. Labs, x-rays, and medications are reviewed. No additional recommendations are made. Prognosis is guarded. The patient has now been in the hospital for 12 days. We will continue to follow. He continues on Zosyn. Plan dated December 14, 2023. The patient is seen today in room 253. Currently, the patient is on the ventilator. He will have another PSV/CPAP trial. Apparently yesterday, he went for about 2-1/2 hours before he required to be placed back on the ventilator. The patient is getting saline at 10 cc an hour, and Nepro tube feedings at 50 cc an hour, which is goal. The patient had a fever, and will be recultured. In addition, the midline incision in the abdomen, shows some evidence of purulence, and will have a surgeon, take a look at that. Currently, the patient is not on any antibiotics. We will recheck a procalcitonin level. One of the family members was in the room, and was updated. Plan dated December 15, 2023. The patient actually spent about 6 hours on pressor support yesterday. The kathryn ent will have another spontaneous breathing trial today. The patient remains off of all sedation. He is getting Ativan and Dilaudid as needed. He is receiving tube feedings at goal. Labs, x-rays, and medications are reviewed. The repeat procalcitonin level was elevated at 1.92. We added Zosyn empirically. He had pancultures done yesterday. Labs, x-rays, and all medications are reviewed. Prognosis is guarded. An update was given to the daughter and to the right. Dictation was produced using [employer] software. Please excuse any grammatical, word or spelling errors. Plan dated December 30, 2023. The patient is seen today in room 253. The patient has now been in the hospital for 48 days. He was admitted way back on November 11. The patient currently is not ready to be weaned, given his high respiratory rate, and high minute volume. The patient is converted back to volume assist-control. In addition, the patient continues on Zerbaxa, Eraxis, and daptomycin, because of recent infections, including Pseudomonas, and Citrobacter, as well as Staphylococcus. Labs, x-rays, and medications are reviewed. The patient will continue on a small dose of propofol, Dilaudid as needed, and Ativan. Dexmedetomidine which is currently running was to be discontinued. Additional recommendations and suggestions are forthcoming. Prognosis is poor in my opinion. The patient remains a full code. The remains hopeful. Dictation was produced using [employer] software. Please excuse any grammatical, word or spelling errors. Plan dated December 31, 2023. The patient is seen today in room 253. Family members are at the bedside. After observing the patient on the ventilator, for period of time, it was clear to me, the patient was not synchronous with the ventilator. For that reason, we switched from volume assist-control, to pressure regulated volume control or VC plus. The patient had a inspiratory time of 0.8 seconds, and a targeted tidal volume of 450 cc. Everything else stayed the same. After switching, the patient's respiratory rate came down, as did his minute volume. He appeared much more comfortable. Labs, x-rays, medications are reviewed. The patient continues on Zerbaxa, Eraxis, and daptomycin. We will continue to follow. Prognosis is guarded. No additional recommendations are made. The patient is on propofol at 40 mcg/kg/min. I have asked the nurses to use both Ativan every 6 hours, and Dilaudid every 2 hours as needed, to see if we can get him on a small dose of propofol so that we can send the patient to long-term acute care facility. Prognosis is guarded. Dictation was produced using [employer] software. Please excuse any grammatical, word or spelling errors. Plan dated January 01, 2024. The patient is seen today in room 253. I had a long conversation with the patient's family yesterday. It was encouraged, by the primary service, Dr. Rowe. Dr. Rowe also talked to the family about CODE STATUS, and the possibility of a palliative care consult or hospice consultation. The patient is chronically and critically ill, but stable. The patient remains on the mechanical ventilator, and is not able to be weaned at this time. Previous attempts at weaning, has caused significant increases in respiratory rate, significant increases in minute volume, and disruptions of his vital signs. The patient continues on Zerbaxa, daptomycin, and Eraxis. The patient is on a relatively smaller dose of propofol at 15 mcg/kg/min. I have encouraged the nurse to wean that down even further. In addition to propofol, the patient is receiving Ativan, and Dilaudid as needed. Labs, x-rays, medications are reviewed. The patient could be considered for possible discharge to long-term acute care facility or select specialty. Plan dated January 02, 2024. I have ongoing discussions with the family. The patient is doing very poorly in my opinion, and is currently not weanable. The patient, could be transferred to a long-term acute care facility or specialized nursing facility. We are attempting to get his propofol dose down to a reasonable level. I did asked the nurses to make sure that the patient got his Dilaudid, and Ativan, as scheduled medications. The patient blood gases are excellent. pO2 is 90, pCO2 is 34, pH is 7.40. The patient remains on pressure regulated volume control modality of ventilation. Labs, x-rays, and all medications are reviewed. The patient is overall prognosis remains poor. The patient remains a full code patient. I did have a long talk with the patient's just a few days ago. Plan dated January 03, 2024. The patient is seen again in room 253. The , and one of the family members at the bedside. The patient continues on mechanical ventilation, and at this time, cannot be weaned. The patient is getting TPN at 90 cc an hour, propofol at 15 mcg/kg/min. The patient is receiving saline at 10 cc an hour. We were in contact with the infectious disease doctor. Daptomycin and Eraxis were discontinued. The patient is on day #6 of 10, on Zerbaxa. Metoprolol and midodrine were discontinued from the [facility]. The patient's insurance denied t ransfer to a long-term acute care facility twice now. Labs, x-rays, medications are reviewed. The patient is overall prognosis is very poor. Today's peak airway pressure is 19 cm of water. The Plateau pressure is 11 cm of water. We will continue to follow the patient, make recommendations along the way. I have had ongoing discussions with the patient's . Plan dated January 04, 2024. The patient is seen in room 253. The and daughter are in the room with the patient. She apparently did call [facility] yesterday, to see if they would except her . They apparently said that they had no beds, and did not currently except him. The patient continues on the mechanical ventilator. The patient's antibiotics have been pared down, to only Zerbaxa for another 3 to 4 days. The patient is down to propofol at 10 mcg/kg/min, TPN at 90 cc an hour, and saline at 10 cc an hour. The patient remains on VC plus modality of ventilation. Blood gases show pO2 of 81, pCO2 of 35, pH is 7.44. Labs, x-rays, medications are reviewed. Prognosis is guarded. We will continue to follow. Plan dated January 05, 2024. The patient will be given a spontaneous breathing trial, with pressure support of 10, CPAP of 5. I have asked the respiratory therapist to watch the patient carefully. Should he demonstrate any worsening respiratory status, high respiratory rate, low tidal volumes, high heart rate, diaphoresis, changes in blood pressure, or anything that would suggest fatigue, she should switch her back to the former modality. Labs, x-rays, medications are reviewed. I did spend some time talking to the patient's . I gave her an update. Apparently the patient's did call [facility], to see if he could be transferred. No beds were available. Also, he has been denied transfer to long-term acute care, by his insurance company, twice. Plan dated January 20, 2024. The patient was on pressor support and CPAP, for about 20 hours yesterday. The patient was placed back on pressor support and CPAP, this morning. When not on pressor support and CPAP, the patient is maintained on pressure assist control, with inspiratory pressure of 15 cm of water, inspiratory time 0.8 seconds, FiO2 30%, rate 20, PEEP of 5. Blood gases were not done. TPN is at 90 cc an hour, saline's at 50 cc an hour and Precedex is 1 mcg/kg/h. The patient remains on ciprofloxacin, tobramycin, Diflucan. Clinically, the patient appears to be tolerating weaning trials reasonably well. We are hoping to have the patient transferred to long-term acute care tomorrow. Additional recommendations and suggestions are forthcoming. Prognosis is guarded. Labs, x-rays, and all medications are reviewed. Dictation was produced using [employer] software. Please excuse any grammatical, word or spelling errors. Plan dated January 21, 2024. The patient is seen today in room 253. Family members are at the bedside as they have been all along during this hospitalization. The patient continues on pressure support of 14, and CPAP of 5, and an FiO2 of 30%. He has been on those settings, since yesterday. Clinically, the patient appears reasonably stable. The patient is currently on Precedex 0.9 mcg/kg/h, and TPN at 90 cc an hour. Labs, x-rays, and all medications are reviewed. We are hoping to be able to get the patient discharged to long-term acute care facility. We will continue to follow make recommendations. In terms of antibiotics, the patient is on ciprofloxacin, tobramycin, and Diflucan. Prognosis is guarded. Plan dated January 22, 2024. The patient is again seen today in room 253. He has not been in the hospital for 71 days. The patient continues on pressure support of 14, CPAP of 5, and 30%. He has been on that for more than a day and a half. He continues on TPN at 90 cc an hour, saline at 50 cc an hour. The patient continues on ciprofloxacin, tobramycin, and fluconazole. He is also on Precedex 0.5 mcg/kg/h. We will attempt a trach collar today. We are waiting for authorization from the long-term acute care facility. Labs, x-rays, and all medications are reviewed. Prognosis is guarded. Dictation was produced using [employer] software. Please excuse any grammatical, word or spelling errors. Plan dated January 23, 2024. The patient is seen today in room 253. The patient is currently on a 40% trach collar. He has been on trach collar since about noon yesterday. Prior to that he was on pressor support and CPAP. He continues on TPN at 90 cc an hour, saline at 50 cc an hour. The patient also continues on Precedex 0.5 mcg/kg/h. Antibiotic arce, the patient is on ciprofloxacin, and fluconazole. We are hoping to get the patient to long-term acute care today. I have asked the nurses to try using Ativan, Dilaudid, and Haldol, and small doses, to get the patient off of Precedex. I did speak to the patient's . I gave her an update. Additional recommendations and suggestions are forthcoming. Dictation was produced using [employer] dictation software. Please excuse any grammatical, word or spelling errors. Plan dated January 24, 2024. The patient is seen today in room 253. The patient continues on 40% trach collar. The patient is getting TPN at 90 cc an hour, saline at 50 cc an hour. The Precedex has been weaned off. He continues on fluconazole, and ciprofloxacin. Tobramycin has been discontinued. Labs, x-rays, and all medications are reviewed. We will continue to follow make recommendations. The patient will likely be discharged either to long-term acute care facility, or one of the local nursing homes. Prognosis is certainly guarded. Time with Patient: Greater than 30
[2024-01-24 11:53] LABS: Glucose,Whole Blood 134 mg/dL (70-110)
--- NOTE | 2024-01-24 12:49 | P.PN ---
Subjective Progress Note Date: 01/24/24 I am following up with the patient and he is accompanied with his states that he is doing much better on a daily basis. He is on a TCAR and according to the yesterday he was sitting up in a chair. Objective - Vital Signs Vital signs: Vital Signs Temp 98.7 F 01/24/24 09:00 Pulse 98 01/24/24 10:26 Resp 34 H 01/24/24 10:26 BP 158/97 01/24/24 09:00 Pulse Ox 100 01/24/24 09:00 FiO2 40 01/24/24 10:14 Intake & Output 01/23/24 01/24/24 01/24/24 18:59 06:59 18:59 Intake Total 3433.02 3104.433 1070 Output Total 1221 1505 150 Balance 2212.02 1599.433 920 Weight 105.5 kg 105.5 kg Intake: IV 2059 2020 470 0.9 Normal Saline @ KVO 110 120 10 Ciprofloxacin/Dextrose 200 200 Pmx 400 mg In Dextrose/ Water 1 200ml.bag @ 200 mls/hr IVPB Q8H [facility] Rx#: [id number] Fat Emulsion 20% 250 ml 210 21 In Empty Bag 1 bag @ 21 mls/hr IV TuThSa@0900 [facility] Rx#:[id number] Fluconazole in NaCl,Iso- 100 Osm 200 mg In Saline 1 100ml.bag @ 100 mls/hr IVPB DAILY [facility] Rx#: [id number] Sodium Chloride 0.9% 1, 450 600 100 000 ml @ 50 mls/hr IV . Q20H [facility] Rx#:[id number] TPN 990 1080 360 Intake, IV Titration 1373.02 1083.433 600 Amount Dexmedetomidine/0.9% NaCl 124.02 58.933 (Pmx) 400 mcg In Empty Bag 1 bag @ 0.2 MCG/KG/HR 5.2 mls/hr IV .[id number] [facility] Rx#:[id number] Fluconazole in NaCl,Iso- 200 Osm 200 mg In Saline 1 100ml.bag @ 100 mls/hr IVPB DAILY [facility] Rx#: [id number] Magnesium Sulfate-D5w Pmx 200 1 gm In Dextrose/Water 1 100ml.bag @ 100 mls/hr IVPB Q1H [facility] Rx#: [id number] Parenteral Electrolytes 1049 1024.5 20 ml Sodium Acetate 34 meq Potassium Chloride 16 meq Magnesium Sulfate gm 0.5 gm Sodium Phosphate 9 mmol In Amino Acids 5 % /Dextrose 20 % 1,000 ml @ 90 mls/hr IV .BY DURATION [facility] Rx#: [id number] Potassium Chloride 10 meq 200 200 In Water For Injection 1 100ml.bag @ 100 mls/hr IVPB Q1H [facility] Rx#: [id number] Output: Chest Tube Drainage 20 15 Chest Tube Right 20 15 Drainage 50 90 Right Abdomen 50 90 Urine 1150 1400 150 Stool 1 Other: Voiding Method Indwelling Catheter Indwelling Catheter # Bowel Movements 1 ABP, PAP, CO, CI - Last Documented Arterial Blood Pressure 173/76 - Exam General: Lying in bed and does not appear in acute distress. Resp: on T-collar Neuro: Limited. Patient is drowsy but is awake to voice. He is following simple commands such as showing thumbs up, closing his eyes to command, smiling. Not verbalizing. No facial weakness. Was able to lift upper bilateral upper extremities above gravity and wiggling ankles. - Labs CBC & Chem 7: 01/24/24 05:53 01/24/24 05:53 Labs: Abnormal Lab Results - Last 24 Hours (Table) 01/23/24 01/23/24 01/24/24 Range/Units 17:57 23:33 05:18 WBC (3.8-10.6) k/uL RBC (4.30-5.90) m/uL Hgb (13.0-17.5) gm/dL Hct (39.0-53.0) % RDW (11.5-15.5) % Sodium (137-145) mmol/L BUN (9-20) mg/dL Glucose (74-99) mg/dL POC Glucose (mg/dL) 147 H 127 H 134 H (70-110) mg/dL Calcium (8.4-10.2) mg/dL Magnesium (1.6-2.3) mg/dL Alkaline Phosphatase (38-126) U/L Albumin (3.5-5.0) g/dL 01/24/24 01/24/24 01/24/24 Range/Units 05:53 05:53 11:51 WBC 15.9 H (3.8-10.6) k/uL RBC 2.66 L (4.30-5.90) m/uL Hgb 7.8 L (13.0-17.5) gm/dL Hct 24.4 L (39.0-53.0) % RDW 16.9 H (11.5-15.5) % Sodium 130 L (137-145) mmol/L BUN 21 H (9-20) mg/dL Glucose 115 H (74-99) mg/dL POC Glucose (mg/dL) 134 H (70-110) mg/dL Calcium 7.2 L (8.4-10.2) mg/dL Magnesium 1.5 L (1.6-2.3) mg/dL Alkaline Phosphatase 196 H (38-126) U/L Albumin 2.3 L (3.5-5.0) g/dL Assessment and Plan Assessment: * Altered mental status, likely due to toxic metabolic encephalopathy---Mentation is improving * Generalized weakness, 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 * Aspiration pneumonitis from retained gastric contents * Ventilator dependent respiratory failure, status post tracheostomy 12/10/2023 * Right lung abscess * Status post pulmonary edema * History of small bowel perforation at the site of jejunostomy tube tip with balloon * Peritonitis, secondary to above * Acute kidney injury, with hemodialysis started 12/05/2023 * Acute recurrent atrial fibrillation, currently in sinus mechanism * Septic shock, recovered * Bacteremia with coagulase-negative staph * Hypertension * Anemia * Thrombocytopenia, resolved * History of gastric B-cell lymphoma, with gastric outlet obstruction. Plan: * Stat EEG was performed on 12/08/2023: It revealed generalized slowing of severe degree. This is suggestive of generalized cerebral dysfunction as can be seen with toxic metabolic encephalopathy or related to diffuse structural brain about a day. Clinical correlation is recommended. Sporadic, periodic generalized sharp-appearing waves were seen. This may suggest underlying cortical irritability. No electrographic seizure was recorded. * Therefore, Dr. Hernández empirically started on Keppra 500 mg daily. I lowered to 250mg bid on 12/25/23 since mentation is improving. . * Repeat EEG on 12/12/2023: Is abnormal. The study is limited because of diffuse myogenic artifact. The background slowing is suggestive of severe encephalopathy. Otherwise no focal slowing, epileptiform discharges or seizure on the EEG. * CT head performed 12/07/2023 revealed no acute intracranial process. Some atrophy. I personally reviewed CT head agree with the findings. * PT and OT are consulted and patient will benefit from rehab and if possible inpatient. * Recommend outpatient EMG with NCS of uppers and lowers if still has weakness after therapy. * ID following. * For medical management as per critical care and other specialties on board. The plan is discussed with patient's who is at bedside. There is no further neurological work-up. Will sign off. Pleaser reconsult if needed. Time with Patient: Less than 30
--- NOTE | 2024-01-24 14:45 | P.PN ---
Subjective Progress Note Date: 01/24/24 Principal diagnosis: Reason for follow-up is pneumonia and bacteremia Patient is 73-year-old with male initial presentation to the hospital on 11/11/2021 for after the patient did have aspiration while undergoing elective endoscopy, diagnosed with a non-Hodgkin of, subsequently did have explained laparotomy for perforated small bowel abdominal washout and feeding jejunostomy tube patient did require dialysis catheter placement for dialysis during this hospital stay and tracheostomy for respiratory failure, infectious was consulted for fever. On today's evaluation that is 01/24/2024,the patient continues to be afebrile patient is on the trach collar he is up in the bed breathing comfortably no chest pain no worsening cough no vomiting or diarrhea has been reported. Patient white count is 15.9 creatinine 0.67 Objective - Vital Signs Vital signs: Vital Signs Temp 98.7 F 01/24/24 12:00 Pulse 98 01/24/24 12:00 Resp 28 H 01/24/24 12:00 BP 148/105 01/24/24 12:00 Pulse Ox 97 01/24/24 12:00 FiO2 40 01/24/24 13:01 Intake & Output 01/23/24 01/24/24 01/24/24 18:59 06:59 18:59 Intake Total 3433.02 3104.433 1590 Output Total 1221 1505 625 Balance 2212.02 1599.433 965 Weight 105.5 kg 105.5 kg Intake: IV 2059 2020 890 0.9 Normal Saline @ KVO 110 120 10 Ciprofloxacin/Dextrose 200 200 Pmx 400 mg In Dextrose/ Water 1 200ml.bag @ 200 mls/hr IVPB Q8H [facility] Rx#: [id number] Fat Emulsion 20% 250 ml 210 21 In Empty Bag 1 bag @ 21 mls/hr IV TuThSa@0900 [facility] Rx#:[id number] Fluconazole in NaCl,Iso- 100 Osm 200 mg In Saline 1 100ml.bag @ 100 mls/hr IVPB DAILY [facility] Rx#: [id number] Sodium Chloride 0.9% 1, 450 600 250 000 ml @ 50 mls/hr IV . Q20H [facility] Rx#:[id number] TPN 990 1080 630 Intake, IV Titration 1373.02 1083.433 700 Amount Dexmedetomidine/0.9% NaCl 124.02 58.933 (Pmx) 400 mcg In Empty Bag 1 bag @ 0.2 MCG/KG/HR 5.2 mls/hr IV .[id number] [facility] Rx#:[id number] Fluconazole in NaCl,Iso- 200 Osm 200 mg In Saline 1 100ml.bag @ 100 mls/hr IVPB DAILY [facility] Rx#: [id number] Magnesium Sulfate-D5w Pmx 200 1 gm In Dextrose/Water 1 100ml.bag @ 100 mls/hr IVPB Q1H [facility] Rx#: [id number] Parenteral Electrolytes 1049 1024.5 20 ml Sodium Acetate 34 meq Potassium Chloride 16 meq Magnesium Sulfate gm 0.5 gm Sodium Phosphate 9 mmol In Amino Acids 5 % /Dextrose 20 % 1,000 ml @ 90 mls/hr IV .BY DURATION [facility] Rx#: [id number] Potassium Chloride 10 meq 200 300 In Water For Injection 1 100ml.bag @ 100 mls/hr IVPB Q1H [facility] Rx#: [id number] Output: Chest Tube Drainage 20 15 0 Chest Tube Right 20 15 0 Drainage 50 90 Right Abdomen 50 90 Urine 1150 1400 625 Stool 1 Other: Voiding Method Indwelling Catheter Indwelling Catheter # Bowel Movements 1 1 ABP, PAP, CO, CI - Last Documented Arterial Blood Pressure 173/76 - Exam GENERAL DESCRIPTION: An elderly male up in bed in no distress RESPIRATORY SYSTEM: Unlabored breathing , decreased breath sounds at bases HEART: S1 S2 regular rate and rhythm , ABDOMEN: Soft , no tenderness EXTREMITIES: No edema feet - Labs CBC & Chem 7: 01/24/24 05:53 01/24/24 05:53 Labs: Abnormal Lab Results - Last 24 Hours (Table) 01/23/24 01/23/24 01/24/24 Range/Units 17:57 23:33 05:18 WBC (3.8-10.6) k/uL RBC (4.30-5.90) m/uL Hgb (13.0-17.5) gm/dL Hct (39.0-53.0) % RDW (11.5-15.5) % Sodium (137-145) mmol/L BUN (9-20) mg/dL Glucose (74-99) mg/dL POC Glucose (mg/dL) 147 H 127 H 134 H (70-110) mg/dL Calcium (8.4-10.2) mg/dL Magnesium (1.6-2.3) mg/dL Alkaline Phosphatase (38-126) U/L Albumin (3.5-5.0) g/dL 01/24/24 01/24/24 01/24/24 Range/Units 05:53 05:53 11:51 WBC 15.9 H (3.8-10.6) k/uL RBC 2.66 L (4.30-5.90) m/uL Hgb 7.8 L (13.0-17.5) gm/dL Hct 24.4 L (39.0-53.0) % RDW 16.9 H (11.5-15.5) % Sodium 130 L (137-145) mmol/L BUN 21 H (9-20) mg/dL Glucose 115 H (74-99) mg/dL POC Glucose (mg/dL) 134 H (70-110) mg/dL Calcium 7.2 L (8.4-10.2) mg/dL Magnesium 1.5 L (1.6-2.3) mg/dL Alkaline Phosphatase 196 H (38-126) U/L Albumin 2.3 L (3.5-5.0) g/dL Assessment and Plan (1) Sepsis Current Visit: Yes Status: Acute Code(s): A41.9 - SEPSIS, UNSPECIFIED ORGANISM SNOMED Code(s): 11335663 (2) Pneumonia Current Visit: Yes Status: Acute Code(s): J18.9 - PNEUMONIA, UNSPECIFIED ORGANISM SNOMED Code(s): 625082842 (3) Bacteremia Current Visit: Yes Status: Acute Code(s): R78.81 - BACTEREMIA SNOMED Code(s): 4690945 Plan: 1patient with complicated pneumonia and lung abscess on the CT status post drainage catheter placement by interventional radiology subsequently did have purulent pleural fluid which has been cultured did have a chest tube and is growing Pseudomonas with slightly different sensitivity from the sputum Pseudomonas aeruginosa. 2-patient also have evidence of retro vesicular abscess on the CT abdominal pelvis, this has been discussed with the surgical team on the case in person however mention patient would not be able to tolerate any further surgery. 3patient CT chest also showed evidence of pulmonary abscess status post chest tube placement, pleural fluid cultures are growing Pseudomonas aeruginosa that is sensitive to Zerbaxa as well as tobramycin and Cipro and also growing Alejandra albicans 4we will obtain CT of the chest abdominal pelvis to make sure resolution of the abscess before discontinuation of his antibiotic for now continue Cipro and Diflucan and monitor clinical course closely Dictation was produced using [employer] dictation software. please excuse any grammatical, word or spelling errors. Time with Patient: Less than 30
--- NOTE | 2024-01-24 15:18 | P.PN ---
Subjective Progress Note Date: 01/24/24 January 22, 2024: ICU. Patient was on CPAP this morning. Plan was to take him to trach only this afternoon. Getting IV Precedex. Awake. Moves his head to command. Was able to move his right arm. Wound VAC remains in place. Right chest tube/pigtail catheter in place. Some air leak. Minimal output from the right RAYA drain. Secretions persist through the left J-tube site. at the bedside. Spoke to the family welfare social work professor David. Looking into long-term placement. 01/23/24 Patient is evaluated in the ICU at the bedside. Feels anxious today, precedex is being weaned. He is awake alert. He is edematous. Abdominal wound vac in place. Right chest tube/pigtail in place. 55 ML of drainage overnight. Right sided ARYA drain. J tube in place. On TPN. He is pending approval for [facility] vs. [facility]. Blood work today reveals a sodium level of 131. Continues on IV Ciprofloxacin/ IV fluconazole. 01/24/2024 Patient remains in the intensive care unit as remains at the bedside. He was weaned off the Precedex today did receive a dose of Ativan this morning however his mood has much improved. Abdominal wound VAC in place with evidence of purulent drainage in the canister. He has had 15 mL of drainage overnight from the right sided chest tube. J-tube remains in place. He continues on TPN. He continues on IV ciprofloxacin and IV fluconazole with plans for repeat abdominal pelvis CT today by infectious disease and consider discontinuation of antibiotics afterwards. Sodium level today is 130. Still pending approval for discharge to LTAC versus [facility]. REVIEW OF SYSTEMS: CONSTITUTIONAL: No fever, no malaise, reports fatigue HEENT: No recent visual problems or hearing problems. Denied any sore throat. CARDIOVASCULAR: No chest pain, orthopnea, PND, no palpitations, no syncope. PULMONARY: Reports shortness of breath, no cough, no hemoptysis. GASTROINTESTINAL: No diarrhea, no nausea, no vomiting, no abdominal pain. NEUROLOGICAL: No headaches, no weakness, no numbness. Anxious. PHYSICAL EXAMINATION: GENERAL: The patient is alert and oriented x2, not in any acute distress. Well developed, well nourished. Trach Collar. HEENT: Pupils are round and equally reacting to light. EOMI. No scleral icterus. No conjunctival pallor. Normocephalic, atraumatic. No pharyngeal erythema. No thyromegaly. CARDIOVASCULAR: S1 and S2 present. No murmurs, rubs, or gallops. PULMONARY: Chest is clear to auscultation, no wheezing or crackles. Diminished. ABDOMEN: Soft, nontender, nondistended, normoactive bowel sounds. No palpable organomegaly. MUSCULOSKELETAL: No joint swelling or deformity. EXTREMITIES: No cyanosis, clubbing, or pedal edema. Peripheral edema 1+ NEUROLOGICAL: Diffuse weakness throughout SKIN: No rashes. Stage 2 sacral decub Assessment plan: -Aspiration and gram-negative bacterial pneumonia a bilateral initially from retained gastric contents mostly food and liquids, causing acute hypoxic respiratory failure: On presentation: Subsequent bacterial pneumonia and lung abscess sputum culture November 25: Citrobacter freundii, Pseudomonas aeruginosa. December 13: Klebsiella oxytoca, Pseudomonas aeruginosa IV meropenem-, IV Zosyn.IV ceftolozane/tazobactam, IV daptomycin, tobramycin-all discontinued Currently getting IV ciprofloxacin. , Tobramycin, Diflucan -Had became asynchronous with the ventilator; currently now on trach collar and agitated. On Precedex drip which is being weaned. -Pain, multifactorial Getting Dilaudid every 2 as needed -Breakdown of tracheostomy stoma site. Dressing in place Being followed by surfacing machine operator -Sepsis with septicemia from above Patient received multiple antibiotics -Right l lung abscess, pigtail catheter placed January 07, 2024. Initially about 200 cc of pus obtained. During the procedure large amount of pus poured out of the tracheostomy site when patient was rolled on the left side. Status post bronchoscopy with some lavage on 01/07/2024 -Pigtail catheter in place - lung abscess larger 1 on the right side-patient cultures are growing Pseudomonas and Klebsiella oxytoca: , Received other antibiotics. Currently on ciprofloxacin and tobramycin -Acute pulmonary edema and fluid overload from hypoalbuminemic state and fluids from IV.:: Has been getting Lasix and dialysis: Both held -Altered mentation. Possibly encephalopathy. Could be delirium.: Some improvement CT brain [December 06] nothing acute Neurology following EEG-evidence of generalized cerebral dysfunction and sporadic intermittent higher amplitude sharply contoured waves mainly bifrontal. Showing cortical irritability. Keppra was started on December 07 -Critical care poly- Pedro neuropathy: Slow to respond PT OT -Gallstones, asymptomatic -Small l bowel perforation at site of jejunostomy tube tip with balloon..: Portion of small bowel resected. On November 24. New J-tube was placed.- drainage to gravity:-Now discontinued December 19: J-tube blocked. J-tube replaced on December 20 over wire December 21: Leaking around the J-tube site. Feeding held December 23: J feeding was started yesterday evening but again started leaking increasingly around the J-tube site-feeding held again December 24: J-tube feeding has been held. Patient is currently having increased drainage from the J-tube site -Acute kidney injury. Possible ATN from hypotensive shock: Resolved Renal ultrasound unremarkable. Started on renal replacement therapy on November 28. Last hemodialysis on December 17. Being followed by an nephrology. Good urine output. -Nutrition Jejunostomy tube placed November [address] Ewing Received TPN-this was discontinued. TPN lipids restarted on December 24 -Midline abdominal incision wound dehiscence Wound VAC placed -Acute recurrent atrial fibrillation-converted to sinus rhythm Received IV amiodarone. Cardiology following -Acute hypoxic respiratory failure from aspiration pneumonia, status post ventilator assisted: Reintubated November 25. FiO2 35 PEEP of 5 Tracheostomy tube-by Dr. Zepeda on December 09 -Septic shock, recovered -Hypertension, recurrent Had received Cleviprex. Hydralazine added -Intermittent hypotension: Corrected Intermittent use of Levophed. 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 Also anemia of blood draw. Iron deficiency anemia Received total of 6 units of blood IV iron. -Severe thrombocytopenia. Would consider coagulation disorder secondary to infection., In the setting of underlying lymphoma.: Fluctuating with infection Hematology following. -Acute blood loss anemia, -Sacral stage II decub ulcer Dressing in place -Hypokalemia, multiple causes -Hypoglycemia: Corrected -GERD PPI -Acute diarrhea secondary to tube feeding.: Resolved C. difficile ruled out. -Large superficial gastric antral ulceration involving the gastric antrum extending into the pylorus with gastric outlet obstruction. 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 -DNR made on January 12. Now full code with instructions on January 17 Remains off IV Precedex at this time. Repeat abdominal pelvis CT planned for today. IV ciprofloxacin and IV fluconazole.. TPN lipids. piece worker looking into long-term placement. Spoke to the at the bedside. Continue treatment plan. Repeat electrolytes tomorrow. The impression and plan of care has been dictated by Carol Ulrich, Nurse Practitioner as directed. Dr. Jozef MD I have performed a history and physical examination and medical decision making of this patient, discussed the same with the dictator, and agree with the dictators assessment and plan as written, documented as a scribe. Based on total visit time, I have performed more than 50% of this visit. Objective - Vital Signs Vital signs: Vital Signs Temp 99.4 F 01/24/24 04:00 Pulse 78 01/24/24 06:00 Resp 25 H 01/24/24 06:00 BP 143/87 01/24/24 06:00 Pulse Ox 99 01/24/24 06:00 FiO2 40 01/24/24 04:00 Intake & Output 01/23/24 01/24/24 01/24/24 18:59 06:59 18:59 Intake Total 3433.02 3104.433 Output Total 1221 1505 Balance 2212.02 1599.433 Weight 105.5 kg Intake: IV 2059 2020 0.9 Normal Saline @ KVO 110 120 Ciprofloxacin/Dextrose 200 200 Pmx 400 mg In Dextrose/ Water 1 200ml.bag @ 200 mls/hr IVPB Q8H [facility] Rx#: [id number] Fat Emulsion 20% 250 ml 210 21 In Empty Bag 1 bag @ 21 mls/hr IV TuThSa@0900 [facility] Rx#:[id number] Fluconazole in NaCl,Iso- 100 Osm 200 mg In Saline 1 100ml.bag @ 100 mls/hr IVPB DAILY [facility] Rx#: [id number] Sodium Chloride 0.9% 1, 450 600 000 ml @ 50 mls/hr IV . Q20H [facility] Rx#:[id number] TPN 990 1080 Intake, IV Titration 1373.02 1083.433 Amount Dexmedetomidine/0.9% NaCl 124.02 58.933 (Pmx) 400 mcg In Empty Bag 1 bag @ 0.2 MCG/KG/HR 5.2 mls/hr IV .[id number] [facility] Rx#:[id number] Parenteral Electrolytes 1049 1024.5 20 ml Sodium Acetate 34 meq Potassium Chloride 16 meq Magnesium Sulfate gm 0.5 gm Sodium Phosphate 9 mmol In Amino Acids 5 % /Dextrose 20 % 1,000 ml @ 90 mls/hr IV .BY DURATION [facility] Rx#: [id number] Potassium Chloride 10 meq 200 In Water For Injection 1 100ml.bag @ 100 mls/hr IVPB Q1H [facility] Rx#: [id number] Output: Chest Tube Drainage 20 15 Chest Tube Right 20 15 Drainage 50 90 Right Abdomen 50 90 Urine 1150 1400 Stool 1 Other: Voiding Method Indwelling Catheter Indwelling Catheter # Bowel Movements 1 ABP, PAP, CO, CI - Last Documented Arterial Blood Pressure 173/76 - Labs CBC & Chem 7: 01/24/24 05:53 01/24/24 05:53 Labs: Abnormal Lab Results - Last 24 Hours (Table) 01/23/24 01/23/24 01/23/24 Range/Units 07:10 12:27 17:57 WBC (3.8-10.6) k/uL RBC (4.30-5.90) m/uL Hgb (13.0-17.5) gm/dL Hct (39.0-53.0) % RDW (11.5-15.5) % Sodium 131 L (137-145) mmol/L BUN 22 H (9-20) mg/dL Glucose 153 H (74-99) mg/dL POC Glucose (mg/dL) 164 H 147 H (70-110) mg/dL Calcium 7.6 L (8.4-10.2) mg/dL Magnesium (1.6-2.3) mg/dL Alkaline Phosphatase 212 H (38-126) U/L Albumin 2.5 L (3.5-5.0) g/dL 01/23/24 01/24/24 01/24/24 Range/Units 23:33 05:18 05:53 WBC (3.8-10.6) k/uL RBC (4.30-5.90) m/uL Hgb (13.0-17.5) gm/dL Hct (39.0-53.0) % RDW (11.5-15.5) % Sodium 130 L (137-145) mmol/L BUN 21 H (9-20) mg/dL Glucose 115 H (74-99) mg/dL POC Glucose (mg/dL) 127 H 134 H (70-110) mg/dL Calcium 7.2 L (8.4-10.2) mg/dL Magnesium 1.5 L (1.6-2.3) mg/dL Alkaline Phosphatase 196 H (38-126) U/L Albumin 2.3 L (3.5-5.0) g/dL 01/24/24 Range/Units 05:53 WBC 15.9 H (3.8-10.6) k/uL RBC 2.66 L (4.30-5.90) m/uL Hgb 7.8 L (13.0-17.5) gm/dL Hct 24.4 L (39.0-53.0) % RDW 16.9 H (11.5-15.5) % Sodium (137-145) mmol/L BUN (9-20) mg/dL Glucose (74-99) mg/dL POC Glucose (mg/dL) (70-110) mg/dL Calcium (8.4-10.2) mg/dL Magnesium (1.6-2.3) mg/dL Alkaline Phosphatase (38-126) U/L Albumin (3.5-5.0) g/dL Assessment and Plan Time with Patient: Less than 30
[2024-01-24 15:58] LABS: Glucose,Whole Blood 110 mg/dL (70-110)
--- NOTE | 2024-01-24 16:37 | P.PN ---
Progress Note - Text Progress Note Date: 01/24/24 HISTORY OF PRESENT ILLNESS: No acute events overnight. PHYSICAL EXAM: VITAL SIGNS: Reviewed. GENERAL: frail, weak HEENT: Tracheostomy site clean dry and intact ABDOMEN: Soft. Nondistended. Midline incision with wound VAC in place and intact with granulation tissue. RAYA drain in place. RAYA tube with decrease in surrounding drainage ASSESSMENT: 1. 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 Status post J-tube placement and revision for small bowel obstruction 2. Abdominal wound dehiscence status post wound VAC placement 3. Status post tracheostomy PLAN: -digital program manager is working on transferring patient to [facility] -At this time, patients J tube site fistula is mature and it is of no harm to the patient if the J tube has been pulled back as the patient has not been getting any tube feeds. Please do not adjust J tube. This was explained to the patient's family on several occasions. Patients nutritional support will be from TPN. -Wound VAC scheduled changes. If patient cannot go to [facility] with the wound VAC can do wet-to-dry dressings on midline incision wound -Continue supportive care -Continue TPN for nutrition support Dick Ewing DO [facility] [phone]
[2024-01-24 17:56] LABS: Glucose,Whole Blood 133 mg/dL (70-110)
[2024-01-24 23:50] LABS: Glucose,Whole Blood 130 mg/dL (70-110)
[2024-01-25 05:57] LABS: Glucose,Whole Blood 137 mg/dL (70-110)
[2024-01-25 06:28] LABS: Anisocytosis Slight; Basophils # (A) 0.1 k/uL (0-0.2); Basophils % (A) 0 %; Eosinophils # (A) 0.2 k/uL (0-0.7); Eosinophils % (A) 1 %; HCT 26.7 % (39.0-53.0); HGB 8.3 gm/dL (13.0-17.5); Hypochromasia Moderate; Lymphocytes % (A) 20 %; MCH 29.3 pg (25.0-35.0); MCV 94.4 fL (80.0-100.0); Mean Platelet Volume 6.7; Monocytes # (A) 1.3 k/uL (0-1.0); Monocytes % (A) 7 %; Neutrophils # (A) 14.2 k/uL (1.3-7.7); Neutrophils % (A) 71 %; Platelet Count 412 k/uL (150-450); RBC 2.83 m/uL (4.30-5.90); RDW 16.7 % (11.5-15.5); WBC 20.1 k/uL (3.8-10.6)
[2024-01-25 06:40] LABS: African American GFR (CKD) >90 (>60 ml/min/1.73 sqM); Anion Gap 5 mmol/L; Blood Urea Nitrogen 21 mg/dL (9-20); Calcium 7.3 mg/dL (8.4-10.2); Carbon Dioxide 20 mmol/L (22-30); Chloride 106 mmol/L (98-107); Glucose 139 mg/dL (74-99); Magnesium 1.7 mg/dL (1.6-2.3); Non-African American GFR(CKD) >90 (>60 ml/min/1.73 sqM); Phosphorus 3.6 mg/dL (2.5-4.5); Potassium 3.8 mmol/L (3.5-5.1); Sodium 131 mmol/L (137-145)
--- NOTE | 2024-01-25 07:24 | P.PN ---
Progress Note - Text Progress Note Date: 01/25/24 HISTORY OF PRESENT ILLNESS: No acute events overnight. PHYSICAL EXAM: VITAL SIGNS: Reviewed. GENERAL: frail, weak HEENT: Tracheostomy site clean dry and intact ABDOMEN: Soft. Nondistended. Midline incision with wound VAC in place and intact with granulation tissue. RAYA drain in place. RAYA tube with decrease in surrounding drainage ASSESSMENT: 1. 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 Status post J-tube placement and revision for small bowel obstruction 2. Abdominal wound dehiscence status post wound VAC placement 3. Status post tracheostomy PLAN: -copyright manager is working on transferring patient to [facility] -At this time, patients J tube site fistula is mature and it is of no harm to the patient if the J tube has been pulled back as the patient has not been getting any tube feeds. Please do not adjust J tube. This was explained to the patient's family on several occasions. Patients nutritional support will be from TPN. -Wound VAC scheduled changes. If patient cannot go to [facility] with the wound VAC can do wet-to-dry dressings on midline incision wound -Continue supportive care -Continue TPN for nutrition support Dick Ewing DO [facility] [phone]
--- NOTE | 2024-01-25 08:03 | XR ---
EXAMINATION TYPE: XR chest 1V DATE OF EXAM: 01/25/2024 COMPARISON: 01/09/2024 HISTORY: Shortness of breath TECHNIQUE: Single frontal view of the chest is obtained. FINDINGS: There is a tracheostomy tube essentially unchanged in position. There is a pigtail catheter in the ri ght pleural space in the right lung. There is a Mediport catheter tip in the right atrium. The partially consolidative infiltrate in the left lung mid lower lung zone is stable. There is decre asing right pleural effusion but small right pleural effusion persists. There is opacity in the right lung apex which is stable. The heart size is normal. The pulmonary vasculature is not congested IMPRESSION: Bilateral Acute cardiopulmonary disease with mild interval improvement in the right pleu ral effusion. [facility], , 01/25/2024 8:00 AM
[2024-01-25] MEDS ORDERED: POTASSIUM CHLORIDE 20 MEQ in SODIUM CHLORIDE 0.9% 100 ML IVPB ONE (08:30)
--- NOTE | 2024-01-25 08:59 | CT ---
EXAMINATION TYPE: CT ChestAbdPelvis w con DATE OF EXAM: 01/24/2024 COMPARISON: 01/06/2024 HISTORY: assess for infection CT DLP: 1976 mGycm Automated exposure control for dose reduction was used. CONTRAST: CT scan of the chest, abdomen and pelvis is performed without Oral Contrast and with IV Contrast, pat ient injected with 100ml mL of Isovue 370. FINDINGS: CT chest: There is been interval insertion of a pigtail drainage catheter in the right pleural space where ther e is a loculated hydropneumothorax. The hydropneumothorax is moderate in size but has decreased in th e interval compared to the prior study. In there are by basilar consolidative infiltrates essentially unchanged compared to the prior study. There is a stable small left pleural effusion. There is a tracheostomy tube unchanged in position. The great vessels chest are normal and there is n o mediastinal, hilar or axillary adenopathy. The osseous structures are intact. CT abdomen and pelvis: There is mild cholelithiasis. There is no biliary ductal dilatation. There is no focal mass or organomegaly involving the liver, pancreas, spleen or adrenal glands. There is no renal calcification or hydronephrosis. There is no solid renal mass. The caliber of the abdominal aorta is normal and there is no retroperitoneal adenopathy. There is a dialysis catheter in unchanged position in the left abdomen. There is a small bowel draina ge tube unchanged in position. There are a few dilated small bowel loops in the mid abdomen raising the question of partial obstruct ion. Ill-defined mass/fluid collection in the rectovesicular space has decreased in size from 3.4 cm to 3 cm. There is diverticulosis of the sigmoid colon and inflammatory change in the pericolic fat and fin dings raise the question of acute diverticulitis with a decreasing phlegmon/abscess. There is no free intraperitoneal air. There is no free intraperitoneal fluid. There is moderate anasarca. The osseous structures are intact. IMPRESSION: 1. Decrease seen hydropneumothorax in the right lung base with drainage catheter. 2. No change in the bibasilar infiltrates and small left effusion. 3. Interval development of a dilated small bowel loop in the midabdomen consistent with either focal ileus or partial obstruction. 4. Findings suggestive of acute diverticulitis of the sigmoid colon with a small pericolic phlegmon o r abscess however is decreasing in the interval from compared to the prior study from 3.4 cm to 3 cm. 5. Moderate anasarca. 6. Peritoneal dialysis catheter and small bowel drainage tube unchanged in position [facility], , 01/25/2024 8:57 AM
[2024-01-25] MEDS: MAGNESIUM SULFATE-D5W PMX 1 GM in DEXTROSE/WATER 1 100ML.BAG IVPB ONE (10:09)
[2024-01-25] MEDS: POTASSIUM CHLORIDE 20 MEQ in WATER FOR INJECTION 1 100ML.BAG IVPB ONE (10:09)
[2024-01-25 11:56] LABS: Glucose,Whole Blood 140 mg/dL (70-110)
--- NOTE | 2024-01-25 12:22 | P.PN ---
Subjective Patient is seen for follow-up for acute kidney injury. Patient remains off of dialysis. Urine output 140-160 mL an hour. Patient remains on TPN. Serum creatinine 0.6 . Sodium 131 Objective - Vital Signs Vital signs: Vital Signs Temp 97.9 F 01/25/24 00:00 Pulse 90 01/25/24 11:58 Resp 26 H 01/25/24 07:00 BP 149/92 01/25/24 07:00 Pulse Ox 96 01/25/24 09:10 FiO2 40 01/25/24 09:10 Intake & Output 01/24/24 01/25/24 01/25/24 18:59 06:59 18:59 Intake Total 2380 1290 90 Output Total 1455 1920 140 Balance 925 630 -50 Weight 105.5 kg 105.6 kg Intake: IV 1680 1290 90 0.9 Normal Saline @ KVO 10 Ciprofloxacin/Dextrose 100 Pmx 400 mg In Dextrose/ Water 1 200ml.bag @ 200 mls/hr IVPB Q8H [facility] Rx#: [id number] Sodium Chloride 0.9% 1, 400 300 000 ml @ 50 mls/hr IV . Q20H [facility] Rx#:[id number] TPN 1170 990 90 Intake, IV Titration 700 Amount Fluconazole in NaCl,Iso- 200 Osm 200 mg In Saline 1 100ml.bag @ 100 mls/hr IVPB DAILY [facility] Rx#: [id number] Magnesium Sulfate-D5w Pmx 200 1 gm In Dextrose/Water 1 100ml.bag @ 100 mls/hr IVPB Q1H [facility] Rx#: [id number] Potassium Chloride 10 meq 300 In Water For Injection 1 100ml.bag @ 100 mls/hr IVPB Q1H [facility] Rx#: [id number] Output: Chest Tube Drainage 25 100 Chest Tube Right 25 100 Drainage 130 70 Right Abdomen 130 70 Urine 1300 1750 140 Other: Voiding Method Indwelling Catheter Indwelling Catheter # Bowel Movements 1 ABP, PAP, CO, CI - Last Documented Arterial Blood Pressure 173/76 - Exam patient is awake FiO2 40% Examination of the heart S1 and S2 Examination of the lungs bilateral breath sounds are heard Abdomen is soft, ventral hernia noted along with wound VAC Examination of lower extremities shows edema 1+ bilaterally in upper and lower extremities - Labs CBC & Chem 7: 01/25/24 06:08 01/25/24 06:08 Labs: Abnormal Lab Results - Last 24 Hours (Table) 01/24/24 01/24/24 01/25/24 Range/Units 17:54 23:49 05:56 WBC (3.8-10.6) k/uL RBC (4.30-5.90) m/uL Hgb (13.0-17.5) gm/dL Hct (39.0-53.0) % RDW (11.5-15.5) % Neutrophils # (1.3-7.7) k/uL Monocytes # (0-1.0) k/uL Sodium (137-145) mmol/L Carbon Dioxide (22-30) mmol/L BUN (9-20) mg/dL Glucose (74-99) mg/dL POC Glucose (mg/dL) 133 H 130 H 137 H (70-110) mg/dL Calcium (8.4-10.2) mg/dL 01/25/24 01/25/24 01/25/24 Range/Units 06:08 06:08 11:54 WBC 20.1 H (3.8-10.6) k/uL RBC 2.83 L (4.30-5.90) m/uL Hgb 8.3 L (13.0-17.5) gm/dL Hct 26.7 L (39.0-53.0) % RDW 16.7 H (11.5-15.5) % Neutrophils # 14.2 H (1.3-7.7) k/uL Monocytes # 1.3 H (0-1.0) k/uL Sodium 131 L (137-145) mmol/L Carbon Dioxide 20 L (22-30) mmol/L BUN 21 H (9-20) mg/dL Glucose 139 H (74-99) mg/dL POC Glucose (mg/dL) 140 H (70-110) mg/dL Calcium 7.3 L (8.4-10.2) mg/dL Assessment and Plan Assessment: 1. Acute kidney injury secondary to ATN secondary to septic shock. Creatinine 0.86 on admission and up to 5.38, improved. UA fairly benign. No hydronephrosis noted on imaging. Started hemodialysis on 11/29/2023 for worsening volume status and acute kidney injury. Renal function has improved and dialysis catheter was discontinued on 12/28/2023 2. Perforated small bowel status post exploratory laparotomy with abdominal washout, small bowel resection and J-tube replacement November 25, 2023. 3. A-fib with RVR. s/p amiodarone drip. 4. Recently diagnosed gastric B-cell lymphoma. 5. Septic shock. 6. Hypokalemia status post replacement. TPN has been adjusted 7. Hypophosphatemia, being supplemented in TPN. 8. Encephalopathy, improved Plan: Continue TPN D/c saline
--- NOTE | 2024-01-25 12:48 | P.PN ---
Subjective Progress Note Date: 01/25/24 Principal diagnosis: Reason for follow-up is pneumonia and bacteremia Patient is 73-year-old with male initial presentation to the hospital on 11/11/2021 for after the patient did have aspiration while undergoing elective endoscopy, diagnosed with a non-Hodgkin of, subsequently did have explained laparotomy for perforated small bowel abdominal washout and feeding jejunostomy tube patient did require dialysis catheter placement for dialysis during this hospital stay and tracheostomy for respiratory failure, infectious was consulted for fever. On today's evaluation that is 01/25/2024,the patient remains to be afebrile, patient is on trach collar and is breathing comfortably no worsening cough nausea vomiting abdominal pain or diarrhea reported patient is hemodynamically stable. Patient white count is up to 20.1, creatinine 0.[address] did have a CT of the chest abdominal pelvis decrease in the hydropneumothorax right lung base with a drainage catheter development of dilated small bowel loop acute diverticulitis sigmoid colon with small pericolonic phlegmon or abscess Objective - Vital Signs Vital signs: Vital Signs Temp 97.9 F 01/25/24 00:00 Pulse 95 01/25/24 09:31 Resp 26 H 01/25/24 07:00 BP 149/92 01/25/24 07:00 Pulse Ox 96 01/25/24 09:10 FiO2 40 01/25/24 09:10 Intake & Output 01/24/24 01/25/24 01/25/24 18:59 06:59 18:59 Intake Total 2380 1290 90 Output Total 1455 1920 140 Balance 925 -630 -50 Weight 105.5 kg 105.6 kg Intake: IV 1680 1290 90 0.9 Normal Saline @ KVO 10 Ciprofloxacin/Dextrose 100 Pmx 400 mg In Dextrose/ Water 1 200ml.bag @ 200 mls/hr IVPB Q8H [facility] Rx#: [id number] Sodium Chloride 0.9% 1, 400 300 000 ml @ 50 mls/hr IV . Q20H [facility] Rx#:[id number] TPN 1170 990 90 Intake, IV Titration 700 Amount Fluconazole in NaCl,Iso- 200 Osm 200 mg In Saline 1 100ml.bag @ 100 mls/hr IVPB DAILY [facility] Rx#: [id number] Magnesium Sulfate-D5w Pmx 200 1 gm In Dextrose/Water 1 100ml.bag @ 100 mls/hr IVPB Q1H [facility] Rx#: [id number] Potassium Chloride 10 meq 300 In Water For Injection 1 100ml.bag @ 100 mls/hr IVPB Q1H [facility] Rx#: [id number] Output: Chest Tube Drainage 25 100 Chest Tube Right 25 100 Drainage 130 70 Right Abdomen 130 70 Urine 1300 1750 140 Other: Voiding Method Indwelling Catheter Indwelling Catheter # Bowel Movements 1 ABP, PAP, CO, CI - Last Documented Arterial Blood Pressure 173/76 - Exam GENERAL DESCRIPTION: An elderly male up in bed in no distress RESPIRATORY SYSTEM: Unlabored breathing , decreased breath sounds at bases HEART: S1 S2 regular rate and rhythm , ABDOMEN: Soft , no tenderness EXTREMITIES: No edema feet - Labs CBC & Chem 7: 01/25/24 06:08 01/25/24 06:08 Labs: Abnormal Lab Results - Last 24 Hours (Table) 01/24/24 01/24/24 01/24/24 Range/Units 11:51 17:54 23:49 WBC (3.8-10.6) k/uL RBC (4.30-5.90) m/uL Hgb (13.0-17.5) gm/dL Hct (39.0-53.0) % RDW (11.5-15.5) % Neutrophils # (1.3-7.7) k/uL Monocytes # (0-1.0) k/uL Sodium (137-145) mmol/L Carbon Dioxide (22-30) mmol/L BUN (9-20) mg/dL Glucose (74-99) mg/dL POC Glucose (mg/dL) 134 H 133 H 130 H (70-110) mg/dL Calcium (8.4-10.2) mg/dL 01/25/24 01/25/24 01/25/24 Range/Units 05:56 06:08 06:08 WBC 20.1 H (3.8-10.6) k/uL RBC 2.83 L (4.30-5.90) m/uL Hgb 8.3 L (13.0-17.5) gm/dL Hct 26.7 L (39.0-53.0) % RDW 16.7 H (11.5-15.5) % Neutrophils # 14.2 H (1.3-7.7) k/uL Monocytes # 1.3 H (0-1.0) k/uL Sodium 131 L (137-145) mmol/L Carbon Dioxide 20 L (22-30) mmol/L BUN 21 H (9-20) mg/dL Glucose 139 H (74-99) mg/dL POC Glucose (mg/dL) 137 H (70-110) mg/dL Calcium 7.3 L (8.4-10.2) mg/dL Assessment and Plan (1) Sepsis Current Visit: Yes Status: Acute Code(s): A41.9 - SEPSIS, UNSPECIFIED ORGANISM SNOMED Code(s): 28290813 (2) Pneumonia Current Visit: Yes Status: Acute Code(s): J18.9 - PNEUMONIA, UNSPECIFIED ORGANISM SNOMED Code(s): 911906222 (3) Bacteremia Current Visit: Yes Status: Acute Code(s): R78.81 - BACTEREMIA SNOMED Code( s): 9519271 Plan: 1patient with complicated pneumonia and lung abscess on the CT status post drainage catheter placement by interventional radiology subsequently did have purulent pleural fluid which has been cultured did have a chest tube and is growing Pseudomonas with slightly different sensitivity from the sputum Pseudomonas aeruginosa. 2-patient also have evidence of retro vesicular abscess on the CT abdominal pelvis, this has been discussed with the surgical team on the case in person however mention patient would not be able to tolerate any further surgery. 3patient CT chest also showed evidence of pulmonary abscess status post chest tube placement, pleural fluid cultures are growing Pseudomonas aeruginosa that is sensitive to Zerbaxa as well as tobramycin and Cipro and also growing Alejandra albicans 4patient did have a follow-up CT of the chest abdominal pelvis on 01/24/2024 reporting overall decrease in the hydropneumothorax on the right side and now concerning for acute diverticulitis with surrounding phlegmon and the patient also notes a worsening of the white count, I will go ahead add Flagyl and continue with the Cipro however discontinue the Diflucan Family bedside multiple question answered Dictation was produced using [employer] dictation software. please excuse any grammatical, word or spelling errors. Time with Patient: Less than 30
--- NOTE | 2024-01-25 13:26 | P.PN ---
Subjective Progress Note Date: 01/25/24 January 22, 2024: ICU. Patient was on CPAP this morning. Plan was to take him to trach only this afternoon. Getting IV Precedex. Awake. Moves his head to command. Was able to move his right arm. Wound VAC remains in place. Right chest tube/pigtail catheter in place. Some air leak. Minimal output from the right RAYA drain. Secretions persist through the left J-tube site. at the bedside. Spoke to the social media sr strategy manager David. Looking into long-term placement. 01/23/24 Patient is evaluated in the ICU at the bedside. Feels anxious today, precedex is being weaned. He is awake alert. He is edematous. Abdominal wound vac in place. Right chest tube/pigtail in place. 55 ML of drainage overnight. Right sided RAYA drain. J tube in place. On TPN. He is pending approval for [facility] vs[facility]. Blood work today reveals a sodium level of 131. Continues on IV Ciprofloxacin/ IV fluconazole. 01/24/2024 Patient remains in the intensive care unit as remains at the bedside. He was weaned off the Precedex today did receive a dose of Ativan this morning however his mood has much improved. Abdominal wound VAC in place with evidence of purulent drainage in the canister. He has had 15 mL of drainage overnight from the right sided chest tube. J-tube remains in place. He continues on TPN. He continues on IV ciprofloxacin and IV fluconazole with plans for repeat abdominal pelvis CT today by infectious disease and consider discontinuation of antibiotics afterwards. Sodium level today is 130. Still pending approval for discharge to LTAC versus [facility]. 01/25/2024 Patient remains in the intensive care unit he continues off IV Precedex at this time. Continues with TPN. Repeat chest abdomen pelvis CT completed yesterday which shows a decrease seen in the hydropneumothorax within the right lung base with drainage catheter there is no change in the bibasilar infiltrates and small left effusion. There is interval development of a dilated small bowel loop in the mid abdomen consistent with either a focal ileus or partial obstruction. There are findings suggestive of acute diverticulitis of the sigmoid colon with a small pericolic phlegmon abscess however is decreasing in the interval from compared in the prior study from 3.4 cm to 3 cm. There is moderate anasarca and the peritoneal dialysis catheter and small bowel drainage tube unchanged in position. Blood work today reveals a white blood cell count of 20.1, hemoglobin 8.3, sodium 131, BUN of 21, creatinine 0.66, magnesium 1.7. He is on IV Cipro. IV Flagyl was added today by infectious disease. Was made a full code at request of family. REVIEW OF SYSTEMS: CONSTITUTIONAL: No fever, no malaise, reports fatigue HEENT: No recent visual problems or hearing problems. Denied any sore throat. CARDIOVASCULAR: No chest pain, orthopnea, PND, no palpitations, no syncope. PULMONARY: Reports shortness of breath, no cough, no hemoptysis. GASTROINTESTINAL: No diarrhea, no nausea, no vomiting, no abdominal pain. NEUROLOGICAL: No headaches, no weakness, no numbness. Anxious. PHYSICAL EXAMINATION: GENERAL: The patient is alert and oriented x2, not in any acute distress. Well developed, well nourished. Trach Collar. HEENT: Pupils are round and equally reacting to light. EOMI. No scleral icterus. No conjunctival pallor. Normocephalic, atraumatic. No pharyngeal erythema. No thyromegaly. CARDIOVASCULAR: S1 and S2 present. No murmurs, rubs, or gallops. PULMONARY: Chest is clear to auscultation, no wheezing or crackles. Diminished. ABDOMEN: Soft, nontender, nondistended, normoactive bowel sounds. No palpable organomegaly. MUSCULOSKELETAL: No joint swelling or deformity. EXTREMITIES: No cyanosis, clubbing, or pedal edema. Peripheral edema 1+ NEUROLOGICAL: Diffuse weakness throughout SKIN: No rashes. Stage 2 sacral decub Assessment plan: -Aspiration and gram-negative bacterial pneumonia a bilateral initially from retained gastric contents mostly food and liquids, causing acute hypoxic respiratory failure: On presentation: Subsequent bacterial pneumonia and lung abscess sputum culture November 25: Citrobacter freundii, Pseudomonas aeruginosa. December 13: Klebsiella oxytoca, Pseudomonas aeruginosa IV meropenem-, IV Zosyn.IV ceftolozane/tazobactam, IV daptomycin, tobramycin-all discontinued Currently getting IV ciprofloxacin. , Tobramycin, Diflucan -Had became asynchronous with the ventilator; currently now on trach collar and agitated. On Precedex drip which is being weaned. -Pain, multifactorial Getting Dilaudid every 2 as needed -Breakdown of tracheostomy stoma site. Dressing in place Being followed by promotional model -Sepsis with septicemia from above Patient received multiple antibiotics -Right l lung abscess, pigtail catheter placed January 07, 2024. Initially about 200 cc of pus obtained. During the procedure large amount of pus poured out of the tracheostomy site when patient was rolled on the left side. Status post bronchoscopy with some lavage on 01/07/2024 -Pigtail catheter in place - lung abscess larger 1 on the right side-patient cultures are growing Pseudomonas and Klebsiella oxytoca: , Received other antibiotics. Currently on ciprofloxacin and tobramycin -Acute pulmonary edema and fluid overload from hypoalbuminemic state and fluids from IV.:: Has been getting Lasix and dialysis: Both held -Altered mentation. Possibly encephalopathy. Could be delirium.: Some improvement CT brain [December 06] nothing acute Neurology following EEG-evidence of generalized cerebral dysfunction and sporadic intermittent higher amplitude sharply contoured waves mainly bifrontal. Showing cortical irritability. Keppra was started on December 07 -Critical care poly- Pedro neuropathy: Slow to respond PT OT -Gallstones, asymptomatic -Small l bowel perforation at site of jejunostomy tube tip with balloon..: Portion of small bowel resected. On November 24. New J-tube was placed.- drainage to gravity:-Now discontinued December 19: J-tube blocked. J-tube replaced on December 20 over wire December 21: Leaking around the J-tube site. Feeding held December 23: J feeding was started yesterday evening but again started leaking increasingly around the J-tube site-feeding held again December 24: J-tube feeding has been held. Patient is currently having increased drainage from the J-tube site -Acute kidney injury. Possible ATN from hypotensive shock: Resolved Renal ultrasound unremarkable. Started on renal replacement therapy on November 28. Last hemodialysis on December 17. Being followed by an nephrology. Good urine output. -Nutrition Jejunostomy tube placed November [address] Ewing Received TPN-this was discontinued. TPN lipids restarted on December 24 -Midline abdominal incision wound dehiscence Wound VAC placed -Acute recurrent atrial fibrillation-converted to sinus rhythm Received IV amiodarone. Cardiology following -Acute hypoxic respiratory failure from aspiration pneumonia, status post ventilator assisted: Reintubated November 25. FiO2 35 PEEP of 5 Tracheostomy tube-by Dr. Zepeda on December 09 -Septic shock, recovered -Hypertension, recurrent Had received Cleviprex. Hydralazine added -Intermittent hypotension: Corrected Intermittent use of Levophed. 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 Also anemia of blood draw. Iron deficiency anemia Received total of 6 units of blood IV iron. -Severe thrombocytopenia. Would consider coagulation disorder secondary to infection., In the setting of underlying lymphoma.: Fluctuating with infection Hematology following. -Acute blood loss anemia -Sacral stage II decub ulcer Dressing in place -Hypokalemia, multiple causes -Hypoglycemia: Corrected -GERD PPI -Acute diarrhea secondary to tube feeding.: Resolved C. difficile ruled out. -Large superficial gastric antral ulceration involving the gastric antrum extend ing into the pylorus with gastric outlet obstruction. 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 -DNR made on January 12. Now full code with instructions on January 17 Remains off IV Precedex at this time. White blood cell count has been increasing up to 20.1 today based off the abdominal pelvis chest CT results patient is been started on IV metronidazole in conjunction with IV Cipro and infectious diseases following closely. TPN lipids continue. Surgery recommending to continue holding off using the Jtube and to not change the position. Discussed CT results ileus vs. partial obstruction; per surgery this is not a concern at this time are likely just an ileus and to continue with the suppositories and TPN feedings. Chest tube remains in place. RAYA drain remains in place. Wound vac to the midline abdomen remains in place. Continue pressure offloading and barrier cream to the sacral decub. Tracheostomy in place and remains on the trach collar. community organization worker looking into long-term placement currently pending authorization for LTAC vs. [facility]. Spoke to the at the bedside. Continue treatment plan. Repeat electrolytes tomorrow. The impression and plan of care has been dictated by Carol Ulrich Nurse Practitioner as directed. Dr. Jozef MD I have performed a history and physical examination and medical decision making of this patient, discussed the same with the dictator, and agree with the dictators assessment and plan as written, documented as a scribe. Based on total visit time, I have performed more than 50% of this visit. Objective - Vital Signs Vital signs: Vital Signs Temp 97.9 F 01/25/24 00:00 Pulse 90 01/25/24 11:58 Resp 26 H 01/25/24 07:00 BP 149/92 01/25/24 07:00 Pulse Ox 96 01/25/24 09:10 FiO2 40 01/25/24 09:10 Intake & Output 01/24/24 01/25/24 01/25/24 18:59 06:59 18:59 Intake Total 2380 1290 90 Output Total 1455 1920 140 Balance 925 -630 -50 Weight 105.5 kg 105.6 kg Intake: IV 1680 1290 90 0.9 Normal Saline @ KVO 10 Ciprofloxacin/Dextrose 100 Pmx 400 mg In Dextrose/ Water 1 200ml.bag @ 200 mls/hr IVPB Q8H [facility] Rx#: [id number] Sodium Chloride 0.9% 1, 400 300 000 ml @ 50 mls/hr IV . Q20H [facility] Rx#:[id number] TPN 1170 990 90 Intake, IV Titration 700 Amount Fluconazole in NaCl,Iso- 200 Osm 200 mg In Saline 1 100ml.bag @ 100 mls/hr IVPB DAILY [facility] Rx#: [id number] Magnesium Sulfate-D5w Pmx 200 1 gm In Dextrose/Water 1 100ml.bag @ 100 mls/hr IVPB Q1H [facility] Rx#: [id number] Potassium Chloride 10 meq 300 In Water For Injection 1 100ml.bag @ 100 mls/hr IVPB Q1H [facility] Rx#: [id number] Output: Chest Tube Drainage 25 100 Chest Tube Right 25 100 Drainage 130 70 Right Abdomen 130 70 Urine 1300 1750 140 Other: Voiding Method Indwelling Catheter Indwelling Catheter # Bowel Movements 1 ABP, PAP, CO, CI - Last Documented Arterial Blood Pressure 173/76 - Labs CBC & Chem 7: 01/25/24 06:08 01/25/24 06:08 Labs: Abnormal Lab Results - Last 24 Hours (Table) 01/24/24 01/24/24 01/25/24 Range/Units 17:54 23:49 05:56 WBC (3.8-10.6) k/uL RBC (4.30-5.90) m/uL Hgb (13.0-17.5) gm/dL Hct (39.0-53.0) % RDW (11.5-15.5) % Neutrophils # (1.3-7.7) k/uL Monocytes # (0-1.0) k/uL Sodium (137-145) mmol/L Carbon Dioxide (22-30) mmol/L BUN (9-20) mg/dL Glucose (74-99) mg/dL POC Glucose (mg/dL) 133 H 130 H 137 H (70-110) mg/dL Calcium (8.4-10.2) mg/dL 01/25/24 01/25/24 01/25/24 Range/Units 06:08 06:08 11:54 WBC 20.1 H (3.8-10.6) k/uL RBC 2.83 L (4.30-5.90) m/uL Hgb 8.3 L (13.0-17.5) gm/dL Hct 26.7 L (39.0-53.0) % RDW 16.7 H (11.5-15.5) % Neutrophils # 14.2 H (1.3-7.7) k/uL Monocytes # 1.3 H (0-1.0) k/uL Sodium 131 L (137-145) mmol/L Carbon Dioxide 20 L (22-30) mmol/L BUN 21 H (9-20) mg/dL Glucose 139 H (74-99) mg/dL POC Glucose (mg/dL) 140 H (70-110) mg/dL Calcium 7.3 L (8.4-10.2) mg/dL Assessment and Plan Time with Patient: Less than 30
[2024-01-25] MEDS: metroNIDAZOLE-NS PMX 500 MG in SALINE 1 100ML.BAG IVPB SCH (14:06)
[2024-01-25 17:43] LABS: Glucose,Whole Blood 103 mg/dL (70-110)
[2024-01-25] MEDS: HYDROmorphone 0.5 MG/0.5 ML SYRINGE IVP PRN (19:47)
[2024-01-25] MEDS: 1: MVI, ADULT NO.4 WITH VIT K 10 ML, TRACE (CONC-1ML/DOSE) 1 ML, PARENTERAL ELECTROLYTES IV SCH (21:00)
[2024-01-25 23:28] LABS: Glucose,Whole Blood 139 mg/dL (70-110)
[2024-01-26 06:02] LABS: Anisocytosis Slight; Basophils # (A) 0.1 k/uL (0-0.2); Basophils % (A) 0 %; Eosinophils # (A) 0.3 k/uL (0-0.7); Eosinophils % (A) 2 %; HGB 7.2 gm/dL (13.0-17.5); Lymphocytes # (A) 3.7 k/uL (1.0-4.8); Lymphocytes % (A) 23 %; MCH 29.9 pg (25.0-35.0); MCHC 32.5 g/dL (31.0-37.0); MCV 91.8 fL (80.0-100.0); Mean Platelet Volume 7.3; Monocytes # (A) 1.1 k/uL (0-1.0); Monocytes % (A) 7 %; Neutrophils % (A) 67 %; Platelet Count 403 k/uL (150-450); WBC 16.3 k/uL (3.8-10.6)
[2024-01-26 06:05] LABS: Glucose,Whole Blood 148 mg/dL (70-110)
[2024-01-26 06:22] LABS: African American GFR (CKD) >90 (>60 ml/min/1.73 sqM); Anion Gap 1 mmol/L; Blood Urea Nitrogen 19 mg/dL (9-20); Calcium 7.1 mg/dL (8.4-10.2); Carbon Dioxide 25 mmol/L (22-30); Chloride 104 mmol/L (98-107); Glucose 125 mg/dL (74-99); Non-African American GFR(CKD) >90 (>60 ml/min/1.73 sqM); Phosphorus 3.6 mg/dL (2.5-4.5); Potassium 3.4 mmol/L (3.5-5.1); Sodium 130 mmol/L (137-145)
[2024-01-26] MEDS: MAGNESIUM SULFATE-D5W PMX 1 GM in DEXTROSE/WATER 1 100ML.BAG IVPB SCH (06:46)
--- NOTE | 2024-01-26 10:04 | P.PN ---
Subjective Progress Note Date: 01/26/24 Principal diagnosis: Abdominal pain. This is a 73-year-old white male with history of chronic abdominal pain for the last 8 months has been treated with Protonix 40 mg daily for the last 3 months with no improvement. Patient had a 22 pound weight loss in the last [address] of the abdomen and pelvis 3 weeks ago showed thickening of the antral wall with pathological adenopathy posterior to the stomach suspicious of neoplasm. Today the patient underwent elective upper endoscopy to evaluate further, patient received IV sedation by anesthesia endoscope was inserted into the mouth, esophagus was intubated without any difficulty there was evidence of large amount of liquid and solid food noted in the stomach suggestive of gastric outlet obstruction. Scope could not be advanced through the pylorus, however in the prepyloric area there was a large superficial ulceration identified with multiple biopsies were done from this area. The body cardia and fundus could not adequately visualize because of large amount of retained food in the stomach. Scope was withdrawn back to the stomach and upon careful examination the mucosa of the antrum body and cardia as well as the fundus appeared normal. Procedure was being performed and biopsies were done patient threw up and subsequently became hypoxic there was clearly evidence of witnessed aspiration anesthesia intubated the patient, procedure was terminated, and the patient was transferred to the ICU, this consult was initiated. Patient is now on assist- control rate of 20 tidal volume 500 FiO2 70% PEEP of 10 ABG is pending, earlier ABG showed profound hypoxia patient is on propofol at 50 mcg/kg/min, next ABG is pending. Chest x-ray showed chronic changes without evidence of acute pulmonary disease. Patient was seen and examined today on 11/13/2023, remains in the ICU, intubated mechanically ventilated, on assist-control rate of 20 tidal volume 500 FiO2 50% and PEEP of 10 ABG showed a pO2 of 143 pCO2 47 pH of 7.28 hence PEEP was cut down to 6, and increased rate to 22. Patient is still requiring IV fluid at 100 cc/h/LR. Requiring norepinephrine at 0.08 mcg/kg/min he is also on propofol at 50 mg/kg/min antibiotics arce patient is receiving Zosyn. Chest x-ray is showing worsening infiltrates specially in the left lung. This could be related to aspiration pneumonia. Patient had witnessed aspiration during endoscopy/upper endoscopy.WBC count is 14 hemoglobin 7.6 basic metabolic profile is normal BUN is 26 creatinine 1.57 obviously the patient sustained some acute kidney injury baseline creatinine 0.86 patient had received fluids over the last 24 hours, remains on fluids at 100 cc/h Patient with seen and examined today on 11/14/2023, patient remains in the ICU, intubated and mechanically ventilated. Failed weaning trial yesterday and he became quite agitated and desaturated once he went off propofol. Had to be placed back on assist-control mode of mechanical ventilation and sedation. Today the patient is on assist-control rate of 22 tidal volume 500 FiO2 50% PEEP of 6. ABG showed a pO2 of 123 pCO2 51 pH of 7.32, and I cut down his FiO2 down to 45%, patient is receiving a unit of packed RBCs for hemoglobin of 6.9 today. Patient had an episode of A-fib RVR at 3 AM in the morning, seen by cardiology, and recommended patient goes on amiodarone. Still requiring norepinephrine at 0.05 mg/kg/min, he is on LR at 100 cc/h propofol at 50 mg/kg/min. Remains empirically on Zosyn for aspiration pneumonia. My plan today is transitioning the patient to Precedex, hopefully discontinue propofol, and at least give the patient a decent weaning trial or at least check weaning parameters before we proceed to weaning trial. Chest x-ray continues to show evidence of pneumonia mostly in the left lung and left lower lobe more specifically. Some pulmonary vascular congestion is noted with interstitial edema, small pleural effusion is also noted/left side. WBC count today is 12 hemoglobin 6.9 basic metabolic profile is normal bicarb is 25, BUN is 25 creatinine is improving down to 1.21 from 1.57 yesterday Patient was evaluated today on 11/15/2023, patient remains in the ICU, he was extubated yesterday, and his extubation was relatively uneventful. However the patient continues to have nasogastric tube in place, his pathology report came back showing non-Hodgkin's lymphoma, patient has gastric outlet obstruction, and the recommendation by GI is to consult surgery for a jejunostomy tube which is appropriate. Patient will be seen today by oncology and [facility]. In the meantime patient is comfortable, he is on 5 L nasal cannula he has LR running at 100 cc/h, he is remains on Zosyn for aspiration pneumonia remains on amiodarone which was started by cardiology for atrial fibrillation with RVR, presently in sinus rhythm. Cannot switch him to oral because of the fact that remains n.p.o., patient remains on TPN. WBC count is 10.7 hemoglobin 7.5 electrolytes are normal renal profile is normal, creatinine normalized to 0.96 Patient was evaluated today on 11/16/2023, remains in the ICU, on 5 L nasal cannula remains on amiodarone at 0.5 mg/min remains on LR at 100 cc/h, however his chest x-ray is showing some component of interstitial edema or could be findings related to his recent episode of aspiration/aspiration pneumonia, nonetheless the patient seems to be a bit symptomatic, he has intermittent cough and wheezing, I am recommending Lasix 40 mg IV push, cut down his IV fluid to 50 cc/h, continue Zosyn, patient will be placed on DuoNeb updrafts and on Solu- Medrol. Patient is scheduled to have jejunostomy-tube placement today. WBC count is 13 hemoglobin 7.7 basic metabolic profile is normal and renal profile is normal Patient was evaluated today on 11/17/2023, patient underwent uneventful placement of a jejunostomy tube yesterday, in the ICU on 5 L, patient is relatively stable, not in any distress, patient continues to have nasogastric tube in place although he did have a J-tube placed yesterday. Patient was seen by oncology for his non-Hodgkin's lymphoma involving the gastric outlet. Today's x-ray showed evidence of pneumonia/bilateral interstitial infiltrate/edema patient was given a dose of Lasix, I reminded the patient had an aspiration episode which was significant. And he required intubation mechanical ventilation for a few days.WBC count today is 9.1 hemoglobin 7.9 electrolytes are normal renal profile is normal hence I plan to transfer the patient out of the ICU to a cardiac floor. And hopefully discharge planning in the next 2 days for The patient was seen today November 18, 2023 in follow-up in the intensive care unit. He is currently sitting up in bed. Awake and alert in no acute distress. He is maintaining O2 saturations in the 90s on 5 L/min per nasal cannula. Glucose 177. Remains on DuoNeb inhalations and Solu-Medrol. Antibiotics in the form of Zosyn. He has a J-tube in place. He was initiated on vital AF 1.2 at 10 mL an hour with a goal of 82 mL/h The patient is seen today November 19, 2023 in follow-up in the intensive care unit. He is a regular medical floor overflow patient. He is currently sitting up in a chair. Awake and alert in no acute distress. He is maintaining O2 saturations in the 90s on 5 L/min per nasal cannula. No IV fluids. He denies any worsening shortness of breath, cough or congestion. He is having some issues with diarrhea. He remains on Zosyn. He is receiving vital AF at 55 mL/h with a goal of 82 mL/h. Glucose 161. Solu-Medrol, DuoNeb inhalations. The patient is seen today November 20, 2023 in follow-up on the regular medical floor. He is currently up in a chair at the bedside. Awake and alert in no acute distress. Denies any worsening shortness of breath, cough or congestion. He is maintaining O2 saturation in the 90s on 3 L/min per nasal cannula. He continues on Zosyn. Continues on bronchodilators and steroids. White count 12.3. Hemoglobin 9.0. Platelets 258. Glucose 168. He is not tolerating his tube feeds as he has developed diarrhea. C. difficile screen was negative. Abdominal series revealed cardiomegaly with left basilar acute infiltrate and/or atelectasis. Overall nonspecific bowel gas pattern. A small bowel obstruction needs to be considered. Progress note dated November 21, 2023. The patient is seen in room 517. The patient is currently on 3 L of oxygen. He continues on Zosyn. His biggest complaint has been abdominal discomfort and diarrhea. He did have a CT scan of the abdomen and pelvis. Current laboratory data includes a white count of 14.4, hemoglobin 8.8, hematocrit 28.7, and platelet count 229,000. Sodium 139, potassium 4.1, chlorides 103, CO2 30, BUN 42, creatinine 0.94. Glucose is 158. Calcium is 8.5. Progress note dated November 22, 2023. 73-year-old male seen in room 517. He currently is on 2 L of oxygen. Room air saturation was 89%. Chest CT shows bilateral patchy infiltrates. He continues on Zosyn. He is still not taking anything by mouth. No new laboratory data today other than a glucose of 138. Gram stain was negative. Progress note dated November 23, 2023. 73-year-old male seen in room 517. He is resting comfortably without com plaints. He continues on saline at 10 cc an hour, tube feedings with Pivot at 20 cc an hour, Zosyn, and 2 L by nasal cannula. He has had an uneventful night. Laboratory data today includes a white count 14.5, hemoglobin 9.7, hematocrit 31.4, and a platelet count of 242,000. Sodium 138, potassium 3.7, chlorides 106, CO2 26, BUN 39, creatinine 0.95. Glucose is 181. Calcium is 8.5. Sputum sampling was negative. Progress note dated November 24, 2023. 73-year-old male who is seen in room 517. The patient has been having significant abdominal discomfort, and went for a evaluation, ordered by surgery today, to determine whether or not the feeding tube, was in proper position, and whether or not there is anything acutely going on in the abdomen. He had been having diarrhea. He is on 3 L of oxygen. He has been here for 12 days. This is a patient, that had a prior EGD, aspirated, because of gastric outlet obstruction, and was diagnosis of non-Hodgkin's lymphoma. He is currently on Zosyn, DuoNebs, and Solu-Medrol. He has been NPO. Chest x-ray showed a left lower lobe infiltrate. Abdominal x-ray showed multiple air-fluid levels. CT of the abdomen showed multiple dilated small bowel loops, consistent with obstruction, pneumoperitoneum, ascites, and cholelithiasis. White count was 14.1, hemoglobin 8.9, hematocrit 29.5, and platelet count was 255,000. Glucose was 143. 11/25/2023, the patient is being seen in the intensive care unit. The patient is critically ill, n.p.o., he has an NG tube in place. Following the NG tube insertion, there was a total of 2.0 L of output and the patient's J-tube was also draining approximately 200 cc over the past 8 hours. Continues to have abdominal pain which is rather diffuse and the patient has direct abdominal tenderness. CAT scan of the abdomen was noted and was consistent with small bowel obstruction. The patient has a stomach that was inflated and in the same time there were multiple loops of small bowel distended with fluid. This extended to the pelvis. J-tube with contrast nondilated small bowel loops within the mid abdomen. Additional loops of small bowel were seen that was dilated. There was some contrast in the right lower quadrant and contrast was also in the cecum. No transition point was identified. The dilated loops of the bowel appeared to be in the proximal jejunum and distal to the duodenum. General surgery is on the case the patient will be taken to the operating room for another exploratory laparotomy. Noted the CAT scan of the abdomen also showed pneumoperitoneum and small amount of ascites and cholelithiasis. Hemodynamically, the patient is currently on normal saline at rate of 75 cc an hour. He is hypotensive and is going to be started on pressors. He is on 4 L of oxygen by nasal cannula. He also has sustained acute kidney injury. Blood work from today shows a rise in the creatinine which is currently up to 2.5 with a BUN of 57. Serum bicarb is at 14 with an anion gap of 11. The patient WBC count is at 8.2 with a hemoglobin of 12.3 and a platelet count of 188. Chest x- ray from this morning is showing a right-sided port and a stable left lung airspace disease and an NG tube being in place. The patient remains on IV Zosyn. The patient is receiving Dilaudid for pain control. The patient remains on IV Solu-Medrol 60 mg every 6 hours. It was noted that the patient's surgical wound over the port has dehisced and there is some serous drainage and erythema at the incision site. Awake and alert and communicating. Family at the bedside. No apparent signs of respiratory distress at this point. 11/26/2023, the patient is being seen in follow-up. Events from yesterday was noted and the patient was taken to the operating room for exploratory laparotomy. The patient was found to have large amount of free fluid noted in the abdomen and there was significant contamination. There was perforation of the small bowel with the balloon of the previously inserted jejunostomy tube penetrating through the perforation. As such, the tube was removed, abdominal washout was done. Small bowel resection was done and the patient had a nodular jejunostomy tube inserted. Postop, the patient was extubated he was unable to tolerate extubation and the patient was kept intubated on mechanical ventilator and he was brought back to the intensive care unit. He is currently postop day #1 following his small bowel resection. Abdominal surgical wound site is dry c lean and intact. This morning, the patient remains sedated on propofol which is currently running at 35 mcg/kg/min. He is on assist-control mode of mechanical ventilation at rate of 28, tidal volume of 550, FiO2 of 60% with a PEEP of 5. Blood gas from today shows a pH of 7.35 with a pCO2 44 and pO2 of 88. Chest x- ray shows adequate positioning of the orotracheal tube. The patient has a Mediport on the right and a subclavian triple-lumen catheter on the left and the patient has persistent bilateral pleural effusion and infiltrates in lung base bilaterally. Hemodynamically, the patient remains in shock. He has been on high-dose norepinephrine which is currently running at 0.28 mcg/kg/min and the patient is also on vasopressin at 0.03 units an hour. He is IV fluids are in the form of bicarb infusion running at rate of 150 cc an hour. He is in sinus tachycardia. NG tube output has been 250 cc over the past 8 hours and the output from the J-tube is minimal at this point in time. Urine output is quite diminished as the patient has also sustained acute kidney injury. Overall fluid balance is +4.9 L over the past 24 hours. The patient's white cell count of 5.7 with a hemoglobin 9.9 and platelet count of 172. BUN is 72 with a creatinine of 2.8 and sodium levels at 143. The calcium level is at 6.5. LFTs are normal. Triglyceride level is at 315. On 11/27/2023, the patient remains critically ill. Remains intubated and on mechanical ventilator, still awaiting shock which is essentially septic shock. Remains on propofol which is running at 50 mcg/kg/min. Remains on the mechanical ventilator, assist-control mode with rate of 28, tidal volume of 550 with an FiO2 of 60% with a PEEP of 5. Blood gas shows a pH of 7.29 with a pCO2 of 47 and pO2 of 78. The patient had a follow-up chest x-ray that showed lower lobe consolidation slightly worse on the right and the orotracheal tube is in a good location. Urine output is diminished in the order of 5 to 10 cc an hour and the patient is also developing progressive worsening renal function. Remains on normal citrate of 150 cc an hour and the patient was started on TPN which is running at 30 cc an hour. He has a triple-lumen catheter in his left subclavian. Overall fluid balance over the past 24 hours is +3.9 L. Output from the NG tube and the J-tube is minimal. Hemodynamically, he is hypotensive and norepinephrine running at 0.45 mcg/kg/min. Vasopressin is a physiologic dose. He received amiodarone and he remains on maintenance amiodarone of 0.5 mg/min and the patient continues to be in atrial fibrillation and is having episodes of tachycardia. The white cell count is at 13, hemoglobin 9.4 platelet count is pending. The patient's BUN is 83 with a creatinine of 3.7. Sodium is at 140 with a potassium level of 5.5 dropped down to 4.4 as the sample was hemolyzed. LFTs are normal. Abdominal wound is dry clean and intact. RAYA drainage is essentially serous at this point in time. 11/28/2023, the patient is being seen for a follow-up. The patient remains intubated on mechanical ventilator. This morning, the patient tolerated propofol drip running at 50 mcg/kg/min. The patient is on mechanical ventilator assist-control mode with rate of 28, tidal volume of 550, FiO2 55% with a PEEP of 5. Chest x-ray shows stable findings with lower lobe consolidations bilaterally. Blood gas shows a pH of 7.32 with a pCO2 38 and pO2 90. Neuropathy has improved and the patient is producing approximately 30 cc an hour and the overall input output balance is +3.3 L over the past 24 hours. The patient is still on pressors although his pressor requirements have improved since yesterday. He is on norepinephrine which is running at 0.05 mcg/kg/min and vasopressin physiologic dose. Also, the patient on amiodarone drip regarding his chronic ongoing atrial fibrillation. Amiodarone drip is running at 0.5 mg/min. Nevertheless, the rate is under much better control. Noted the patient was given a dose of digoxin 0.5 mg IV yesterday which helped with rate control. Remains on normal citrate of 150 cc an hour. Remains on TPN at 40 cc an hour. Output from the J-tube is fecal. Output from the NG tube is more gastric. Surgical wound site is dry clean and intact. Sputum Gram stain and culture showing Pseudomonas and Citrobacter. Note that the Citrobacter was intermediate resistance to Zosyn. This will be discussed further with infectious disease. Blood cultures are still pending for now. They have negative based on the most recent check. Blood work from today shows WBC count 11.2, hemoglobin 7.9 and platelet count of 46. Sodium is at 140, potassium is at 4.3, chloride is 114 with a bicarb of 18. He has 93 and the creatinine is 4.8. Serum random vancomycin level is at 25.7. On 11/29/2023, the patient is being seen for a follow-up. Remains intubated on the mechanical ventilator. The patient sedated on propofol which is running at 35 mcg/kg/min. Synchronous with mechanical ventilator. On today's evaluation, he is on assist-control mode with rate of 28, tidal volume of 550, FiO2 55% with a PEEP of 5. Chest x-ray shows lower lobe consolidation bilaterally worse on th e right and the orotracheal tube is in good location. The blood gas showed a pH of 7.34 with a pCO2 of 35 and a pO2 of 84. No significant orotracheal secretions. Hemodynamically improved compared to yesterday. In fact, the patient is on minimal norepinephrine that was discontinued earlier this morning. The patient has converted to normal sinus rhythm. Remains on amiodarone at 0.5 mg/min. Overall fluid balance over the past 24 hours is 2.4 L positive. Urine output has been adequate and the patient is currently on IV Lasix. Nevertheless, the patient has developed progressive worsening renal function. Creatinine is up to 5.3 on today's evaluation with a potassium level of 4.4. Serum bicarb is at 18 with an anion gap of 9. WBC count is at 8.1 with a hemoglobin of 7 and a platelet count of 32 which has dropped compared to earlier evaluation. The rest of the coagulation profile was normal from 11/28/2023. Fibrinogen level is slightly elevated. Sputum samples have shown a combination of Citrobacter and Pseudomonas aeruginosa. Based on cultures and sensitivities, the patient will be taken off his IV Zosyn and he will be switched to IV meropenem. Output from the J-tube is fecal. Output from the NG tube is gastric and surgical wound site is dry clean and intact. He is afebrile for now. Hemodynamically, the patient is doing better. He remains on TPN for nutritional support. IV fluids are also running at a rate of 75 cc an hour. Remains on vancomycin. 11/30/2023, the patient is being seen for a follow-up. The patient remains on propofol at 50 mcg/kg/min. Ventilator settings are essentially unchanged. The patient remains on assist-control mode with rate of 18, tidal volume of 400, FiO2 50% with a PEEP of 5. The blood gas showed a pH of 7.37 with a pCO2 of 43 and pO2 of 127. Chest x-ray shows no significant interval change. Patient remains on normal saline at rate of 75 cc an hour and TPN at rate of 35 cc an hour. Fluid balance is positive. Hemodialysis was performed yesterday and the second session of hemodialysis to be done today. The patient's urine output is in the order of 20 to 30 cc an hour. The patient has an NG output of 350 cc for yesterday and the drainage from the J-tube is in the order of 400 cc over the past 24 hours. The blood work shows a WBC count of 10.8, hemoglobin 8.1 and platelet count of 41. Platelet counts are essentially stable and slightly improved compared to yesterday. The sodium level is at 133, potassium is at 4.3, BUN is 93 with a creatinine of 3.6. LFTs are within normal limits. Albumin is down to 2.1. The patient is currently on no pressors. Norepinephrine and vasopressin are both discontinued and the patient remains in normal sinus rhythm. No other significant events overnight. Family has been updated on his condition. Antibiotic coverage is currently with IV meropenem. Vancomycin and Zosyn have been both discontinued. On 12/01/2023, the patient remains sedated on propofol which is running at 25 mcg/kg/min., Comfortable and synchronous mechanical ventilator. The patient remains on assist-control mode rate of 28, tidal volume of 550, FiO2 40% and PEEP of 5. Blood gas shows a pH of 7.49 with a pCO2 of 34 and pO2 of 121. Patient underwent hemodialysis yesterday. No plans for hemodialysis today the patient is producing urine output. Remains on TPN for nutrition support rate of 75 cc an hour. IV fluids are currently at KVO. The chest x-ray from today shows bilateral lower lobe consolidation worse on the right. No significant change in the volume status. The patient continues to have third spacing and edema in all 4 extremities. Nevertheless, urine output is adequate at this point in time and the patient remains on Lasix 80 mg IV every 12 hours. Remains NPO. NG tube and J-tube are both drainage. Output is noted. Remains on IV meropenem. Afebrile. Currently on no pressors. Blood work shows a WBC count of 11.4, hemoglobin of 8.1 and platelet count of 46. Sodium is at 131, potassium level is at 3.7, chloride 101 and bicarb is at 24. BUN is 84 with a creatinine of 3.6. Glucose of 228. LFTs are within normal limits. Patient was reevaluated today on 12/02/23, patient remains in the ICU, patient is familiar to my service, I saw this patient 3 weeks ago. Since then he had a very complicated hospital course, related to his jejunostomy tube dislodging and leaking and picture of abdominal sepsis and worsening pneumonia/ARDS. Patient had to be placed back on mechanical ventilation, and he is now intubated and mechanically ventilated. He is on assist-control rate of 20 tidal volume 550 FiO2 40% PEEP of 5 ABG showed a pO2 of 111 pCO2 38 pH of 7.43 and I cut down his FiO2 to 35% and increase his flow rate from 60-70. Patient remains on TPN at 75 cc/h he is on propofol at 25 mcg/kg/min patient is on Cleviprex which I added today for elevated blood pressure. Receiving Lasix 80 mg every 12 hours is also on Merrem as per infectious disease. Patient is on hemodialysis and being followed by nephrology. Patient required multiple abdominal surgeries since his initial admission. Chest x-ray continues to show worsening pneumonia involving both lungs, right more so than left, I suspect there may be a component of ARDS. His initial presentation was the presentation of aspiration pneumonia to begin with and that was 3 weeks agoWBC count is 10.3 hemoglobin 8.6 sodium 131 potassium 4 chloride 100 bicarb 23 BUN is 111 creatinine 4.02 blood sugar is 248. Albumin is 1.9 Patient was evaluated today on , patient remains in the ICU, intubated and mechanically ventilated. Patient is on assist-control rate of 20 tidal volume 550 FiO2 35% and PEEP of 5 ABG showed a pO2 of 99 pCO2 39 pH of 7.44 patient is undergoing hemodialysis today, and the plan is to remove 2 L. He is remains on propofol at 35 mcg/kg/min, remains on TPN at 75 cc/h. Remains on Merrem. Patient is not requiring any pressors today. Yesterday patient did not tolerate to be off sedation long enough, and today we tried the same sedation interruption, and the patient did not do well post interruption of sedation, became extremely agitated restless, tachycardic, and could not fully assess mental status off sedation. Hence the patient was placed back on AC mode of mechanical ventilation, and the plan is to continue the same supportive care measures. Family updated on his condition and most likely the patient will end up requiring tracheostomy in the next few days.WBC count is 8.5 hemoglobin 8.2 basic metabolic profile is relatively unremarkable BUN is 89 creatinine 3.45 chest x-ray today showed stable chest, suspect some right-sided pleural effusion which would likely improve with hemodialysis/ultrafiltration. X-ray of abdomen showed nonspecific nonobstructive bowel gas pattern Patient was seen today on 12/04/2023, remains in the ICU, intubated mechanically ventilated, on assist-control rate of 20 tidal volume 550 FiO2 35% PEEP of 5 ABG showed a pO2 of 112 pCO2 38 pH of 7.45, hence no changes were made in ventilator settings. Patient is on propofol at 35 mcg/kg/min he is also on IV fluid at KVO TPN at 75 cc/h. Remains on hemodialysis remains on Lasix 80 mg IV push twice daily, remains on Merrem. This x-ray continues to show the same findi ngs/airspace disease in both lungs, not much of a change in the last 2 days, however his oxygenation seems to be improved. WBC count is 7.1 hemoglobin 7.7. Electrolytes are normal, BUN is elevated 77 creatinine 3.32, patient is on hemodialysis. His condition was discussed today with the at bedside, and I do not believe the patient is ready to be weaned or extubated, however he seems to get extremely agitated when he goes off propofol, today I plan to transition propofol to Precedex, give him a trial on Precedex and determine whether the patient becomes more appropriate and at least ready for any weaning trials. Clinically I doubt if this will happen but we will go ahead and try Patient was evaluated today on 12/05/2023, remains in the ICU, intubated mechanically ventilated, not much of a change noted in the last 24 hours. Remains on assist-control of 20 tidal volume 550 FiO2 35% PEEP of 5 ABG showed a pO2 of 90 pCO2 37 pH of 7.48 hence chose not to change any of his ventilator settings. Yesterday the patient failed again trial of weaning, and he was never anywhere near ready to be weaned in spite of placing him on Precedex and off propofol, at 1 point the patient became extremely agitated restless and he was biting on the endotracheal tube could not fully awake the patient and determine improvement in his mental status. Hence patient was placed back on propofol yesterday and he remains on propofol today. He is on propofol at 25 mcg/kg/min he is on TPN at 75 cc/h surgery is considering starting his J-tube feedings today. Remains on hemodialysis remains on Merrem remains on Lasix 80 mg IV push twice daily overall not much of a change his chest x-ray is basically about the same showing bibasilar airspace disease. Today I had a discussion with the regarding the option of tracheostomy extremely reluctant to have it done yet. Said that the patient had multiple complications with previous surgeries and she is afraid that he is going to have another complication with the surgeryWBC count is 10.2 hemoglobin is 8, basic metabolic profile is normal sodium 130 BUN 70 creatinine 2.89 Patient was seen today on 12/06/23, remains in the ICU, intubated mechanically ventilated, his ventilator settings are assist-control rate 20 tidal volume 550 FiO2 35% and PEEP of 5 ABG showed a pO2 of 103 pCO2 36 pH of 7.47 patient opens eyes but does not follow any other instructions. He is now off propofol for the last 24 hours, he is maintained on Precedex at 0.4, TPN at 75 cc/h vital AF at 5 mL/h. Patient remains on Merrem, patient did not receive dialysis today because issues related to occluded dialysis catheter. Nonetheless the patient is making urine, and continues to improve with diuretics. 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 Blood sugar is 226. Family is at bedside, considering his overall mental status at this point, not quite ready to start checking weaning parameters, and is not ready for weaning. Nonetheless I plan to keep him on Precedex, and hopefully avoid narcotics and other sedatives. His mentation starts clearing a bit more, then will start trials of weaning parameters and/or weaning trials Patient was seen today on 12/07/2023, remains in the ICU, intubated and mechanically ventilated, on assist-control rate of 20 tidal volume 550 FiO2 35% PEEP of 5 ABG showed a pO2 of 83 pCO2 33 pH of 7.50 hence the tidal volume was cut down to 500. Patient remains off propofol remains off narcotics is only on Precedex for sedation at 0.6 mg/kg/h. He is on norepinephrine at 0.02 TPN at 75 cc/h IV fluid at KVO vital AF at 10 mL/h is also on Merrem. Neurologically I am concerned about this patient neurological status, does not seem to be waking up much, he opens his eyes but does not follow any instructions and spite of sedation hold for quite some time. Hence I am recommending a CT of the brain and multiple recommending a neurological consultation on this patient. WBC count is 18 7 hemoglobin is 8.4, basic metabolic profile is normal BUN is 75 creatinine 2.95, patient is back on dialysis, he had a new hemodialysis catheter placed yesterday by vascular surgery, and he will be restarted back on hemodialysis. CT of the brain done shortly after evaluating the patient showed no acute intracranial process chest x-ray basically about the same, continues to show small left and moderate right basilar infiltrate. Has not changed much over the last 1 week, patient remains on antibiotics. Patient was seen today on 12/08/2023, remains in the ICU, intubated and mechanically ventilated, remains on assist-control rate of 20 tidal volume 500 FiO2 35% PEEP of 5 ABG showed a pO2 of 88 pCO2 37 pH of 7.47 hence no changes were made in ventilator settings. Chest x-ray is showing slight increase in his right-sided pleural effusion, however his oxygenation seems to be about the same, and the patient is responding to Lasix given at 80 mg IV push every 12 hours, he is also doing well with hemodialysis he had 2 L removed yesterday and 2 L the day before. Hence will not recommend thoracentesis at this point. But the pleural effusion will need to be closely monitored. Patient remains off propofol he is on Precedex at 0.6 mcg/kg/h. For the last 2 days, and his mentation is not much different from baseline. Continues to open his eyes and does not follow any other instructions has the patient is clearly not ready for weaning trials or extubation. Brought up the issue of tracheostomy again with the , she is still reluctant to proceed with tracheostomy on him at this point. Patient remains on Merrem, remains on TPN but his enteral feeding will be advanced today to full goal, and if that happens then we will can discontinue TPN. Patient is receiving vital AF 1.2@10 mL/h at this point.WBC count is 19.3 hemoglobin 7.6. Basic metabolic profile is normal BUN is 72 creatinine 2.99 blood sugar ranging between 250 up to 334. 12/09/23 - patient seen at bedside today, remaining in the ICU, intubated and mechanically ventilated, remaining on assist-control rate of 20, tidal volume 500, FiO2 30%, PEEP of 5 and oxygen saturation of 100%. Patient is on day 27 of his hospital stay (admitted 11/11), day 15 of this current ICU stay (readmit to the ICU 11/24) and day 15 of this current period of time on the ventilator (placed 11/24). ABG showed pO2 100, pCO2 36, pH 7.47. Chest x-ray was deemed to be stable, however possibly with slight improvement noted on the left with a right-sided pleural effusion remains evident however the patient's oxygenation remains to be about the same. Continue to receive 80 mg IV Lasix every 12 hours and is receiving daily hemodialysis, in which he has been having 2 L removed the past couple of days, hemodialysis yet to occur today. His creatinine is 3.57 (compared to 2.99 yesterday) and BUN 98 (compared to 72 yesterday). Due to this response to diuresis and hemodialysis, no thoracentesis recommended at this point however pleural effusion will need to continue to be monitored. Patient shon off propofol, he is on Precedex at 0.4 mcg/kg/h. Due to his mentation remaining near baseline, neurology had been consulted who ordered an EEG which showed diffuse background slowing of his severe degree which is suggestive for generalized cerebral dysfunction and can be seen with toxic metabolic encephalopathy, as well as the presence of sporadic intermittent, some higher amplitude, sharply contoured waves of generalized distribution. Because of this per neurology's recommendation, patient started on Keppra 500 mg twice daily. The patient does seem to be having some improved mentation, with opening his eyes and responding to commands some of this morning. Spontaneous breathing trial to be attempted today, to see if the patient will be able to come off of mechanical ventilation. If that is unable to occur, discussed with the patient as well as his and one of his daughters that a tracheostomy would be the most appropriate next course of action due to the potential dangers of sustained endotracheal intubation for prolonged period of time. The , while reluctant, seem to acknowledge that this is the appropriate course of action. He remains receiving meropenem 1 g nightly. He remains on TPN 75 mL/h, which she has been on since 11/21 (18), but his enteral feeding has been vital 1.2 AF at 10 mL/h with a goal rate of 80 mL/h. Patient drained 60 mg of serosanguineous fluid from his RAYA. His WBCs increased to 21.5 (compared to 19.3 yesterday), hemoglobin dropped to 7.2 (compared to 7.6 yesterday), hematocrit dropped to 22.0 (compared to 22.9 yesterday) and patient procalcitonin remains elevated at 3.07. 12/10/23 - Patient seen at bedside today, remaining in the ICU, intubated and mechanically ventilated, remaining on assist-control rate of 20, tidal volume 500, FiO2 30%, PEEP of 5 and oxygen saturation of 100%. Patient is on day 28 of his hospital stay (admitted 11/11), day 16 of this current ICU stay (readmit to the ICU 11/24) and day 16 of this current period of time on the ventilator (placed 11/24). ABG showed pO2 93, pCO2 37, pH 7.47, showing evidence of a mild metabolic alkalosis. Chest x-ray today showed stable disease compared to yesterday. He received levo overnight due to atypical blood pressure, patient's TPN was up to 120 due to the change in formula. Patient is scheduled to undergo tracheotomy today (12/09) at 16:30. Per the nurse and the overnight staff patient continues to open his eyes and shows some responsiveness to commands. Per nephrology's recommendation dialysis to be held today due to the patient going for the tracheotomy later, as well as the dip in blood pressure seen after yesterday's dialysis session which required Levophed. Patient's Hgb this morning 6.6, will be given 1 unit today, which will be the second unit he has received during his hospital course. Patient's airway resistance noted to be 3.3 cm/L/s, static lung compliance shown to be 45 mL/cm H2O and dynamic compliance 33 mL/cm H2O. 12/11/23 - Patient seen at the bedside, remaining in the ICU, with a tracheotomy tube and mechanically ventilated while receiving dialysis. Patient remains on assist-control rate of 20, FiO2 30%, PEEP of 5 and has an oxygen saturation of 97%. Patient is on day 29 of the hospital stay (admitted 11/11), day 17 of his current ICU stay (readmitted to the ICU 11/24) and day 17 of his current period of time on the ventilator (placed 11/24). ABG today showed pO2 115, pCO2 38, pH 7.44 continuing to show evidence of a mild metabolic alkalosis. Chest x-ray today showed stable disease. Patient had tracheotomy placed yesterday afternoon (12/09) without any complications. Patient has had 3 consecutive days of attempting spontaneous breathing trials in an effort to wean the patient off the ventilator, all of which failed to this point. Beginning today the patient's antibiotics (meropenem) will be discontinued and we will begin weaning his propofol down from 25 mcg/kg/min. As the patient is weaned off of the propofol, 0.5 Dilaudid and 1 mg IV Ativan to be used every 6 hours as needed. Patient is continuing to receive normal saline 20 cc/h, and has a total of 200 mL of serosanguineous fluid from his RAYA drain. TPN to continue at a rate of 120 mL/h additionally tube feeds, which had been held due to the patient receiving s traight catheter yesterday, will be restarted today with an ultimate goal being to receive enteral nutrition at a rate of 80 mL/h. TPN to continue until able to increase the enteral nutrition to at least 50 mL/h, as per the dietitian's recommendation. Will be exploring the possibility of the patient being moved to select specialty. 12/12/23 - Patient seen at the bedside this morning, in ICU room 253, while receiving and EEG, no significant events overnight. Patient remains with tracheotomy and is mechanically ventilated on assist control with a rate of 20, tidal volume 500, FiO2 30%, PEEP of 5 with an oxygen saturation of 98%. Patient is on day 30 of the hospital stay (admitted 11/11), day 18 of his current ICU stay (readmitted to the ICU 11/24) and day 18 of his current period of time with mechanical ventilation (placed in 11/24). ABG today showed pO2 92, pCO2 36, pH is 7.49 continue to show signs of a combined respiratory and metabolic alkalosis. WBC 17.9, Hgb 7.4, Hct 22.6, PLT 151; sodium 133, potassium 4.0, HCO3 27, BUN 88, creatinine 2.96. Chest x-ray done today continuing to show patchy infiltrate throughout the right lung with layering effusion. Patient is continuing to receive normal saline 20 cc/h, continues to receive Dilaudid 0.5 mg IV push every 6 hours as needed, as well as Ativan 1 mg IV every 6 hours as needed. Patient is no longer maintained on propofol. TPN continues at a rate of 120 mm/h and EN vital AF at 30 mL/h with a goal of 40 mL/h. Once goal is reached, TPN can be discontinued and patient will be switched over to Nepro 50 mL/h. Following the patient having 3 consecutive days of attending spontaneous breathing trials and effort to wean, we will begin trying the patient with CPAP and pressure support in effort to wean, today's trial the patient will be placed on PS 5 and PEEP of 5 for 25-45 minutes, or as he is able to tolerate it. Disc ussed with the patient's the importance of continuing to wean the patient's with trials, in an effort to build up some of the strength in his lungs to better be able to tolerate breathing on his own. Will continue to evaluate for possible placement in a long-term acute care facility. 12/13/23 - Patient seen at the bedside this morning, in ICU room 253, with no significant events overnight noted. Patient remains with tracheotomy and is mechanically ventilated on assist control with a rate of 20, tidal volume 500, FiO2 30%, PEEP of 5 with an oxygen saturation of 98%. Patient is on day 30 one of the hospital stay (admitted to 11/11), day 19 of his current ICU stay (readmitted to the ICU 11/24) and day 19 of his current period of time with mechanical ventilation (placed 11/24). ABG today showed pO2 87, pCO2 36, pH 7.48 continue to show signs of a combined respiratory metabolic alkalosis. WBC 17.3, Hgb 8.0, Hct 25.3, PLT 191; sodium 136, potassium 4.1, BUN 116, creatinine 3.17. This x-ray done today continues to show stable disease. Patient had an EEG completed yesterday (12/11) which showed an abnormal EEG, study being limited because of diffuse myogenic artifact. Background slowing suggestive of severe encephalopathy. Otherwise no appreciable epileptiform discharges, focal slowing, or seizure noted during the exam. Patient continues to receive Dilaudid 0.5 mg IV push every 6 hours as needed, as well as Ativan 1 mg IV every 6 hours as needed. Patient's TPN has been stopped, he is not receiving Nepro at 50 mL/h, which is goal. Patient Solu-Medrol has been discontinued, patient now receiving 30 mg prednisone daily. Patient's trial yesterday with CPAP and pressure support with the patient was sent PS of 5 and PEEP of 5, patient tolerated 40 minutes well it was noted that his respiratory rate increased and his minute ventilation also increased during this time. Will continue with another weaning effort today and continue to reassess how the patient tolerates. He will be receiving hemodialysis today, with the plan to hold over the weekend and then reassess Saturday per nephrology. Additionally IV Lasix has been discontinued on this patient, nephrology did state that he may need to resume receiving the Lasix if the urine output tapers. Progress note dated December 14, 2023. The patient is seen today in room 253. The patient remains on the mechanical v entilator. His settings include volume assist-control, rate 20, tidal volume 500, FiO2 30%, PEEP of 5. Blood gases show pO2 of 76, pCO2 of 36, pH of 7.47. The patient is getting saline at 10 cc an hour, and Nepro at 50 cc an hour which is goal. The patient will go back on pressor support of 5 and CPAP of 5 today. Yesterday, he spent 2-1/2 hours on pressure support. The patient did have a tem perature last night. He discussed some purulent drainage at the wound site. I have asked surgeon to come back and see the patient. In addition, the nurse will get blood, urine, sputum, and wound cultures going. He is not on any antibiotics. We will check a procalcitonin level. White count of 16.7, hemoglobin 8.1, hematocrit 24.5, platelet count is normal. Sodium 135, potassium 3.9, chlorides 103, CO2 24, BUN 106, creatinine 3.04. Calcium is 7.1. Magnesium is 2.0. Urine is yellow, with 1+ protein, 6 WBCs, and rare bacteria. Chest x-ray shows a stable chest x-ray, which is largely unchanged. Progress note dated December 15, 2023. 73-year-old male seen again in room 253. The patient remains on mechanical ventilator. Blood gases show pO2 of 78, pCO2 of 36, pH of 7.47. The patient is getting saline at KVO, and Nepro at 50 cc an hour which is goal. The patient did a spontaneous breathing trial yesterday, and went about 6 hours on PSV 5, CPAP of 5. The patient's procalcitonin level was elevated at 1.92. We added back Zosyn. Yesterday we did sputum, blood, urine, and wound cultures. The patient will have another spontaneous breathing trial today. Current labs include a white count 16.3, hemoglobin 7.5, hematocrit 22.6, and a normal platelet count. Sodium 138, potassium 3.5, chlorides 105, CO2 24, BUN 125, and creatinine 3.22. Glucose is 220. Calcium is 6.9. Chest x-ray shows a right- sided pleural effusion, and some similar changes, to the previous x-ray. This is a 73-year-old white male with history of chronic abdominal pain for the last 8 months has been treated with Protonix 40 mg daily for the last 3 months with no improvement. Patient had a 22 pound weight loss in the last [address] of the abdomen and pelvis 3 weeks ago showed thickening of the antral wall with pathological adenopathy posterior to the stomach suspicious of neoplasm. Today the patient underwent elective upper endoscopy to evaluate further, patient received IV sedation by anesthesia endoscope was inserted into the mouth, esophagus was intubated without any difficulty there was evidence of large amount of liquid and solid food noted in the stomach suggestive of gastric out let obstruction. Scope could not be advanced through the pylorus, however in the prepyloric area there was a large superficial ulceration identified with multiple biopsies were done from this area. The body cardia and fundus could not adequately visualize because of large amount of retained food in the stomach. Scope was withdrawn back to the stomach and upon careful examination the mucosa of the antrum body and cardia as well as the fundus appeared normal. Procedure was being performed and biopsies were done patient threw up and subsequently became hypoxic there was clearly evidence of witnessed aspiration anesthesia intubated the patient, procedure was terminated, and the patient was transferred to the ICU, this consult was initiated. Patient is now on assist- control rate of 20 tidal volume 500 FiO2 70% PEEP of 10 ABG is pending, earlier ABG showed profound hypoxia patient is on propofol at 50 mcg/kg/min, next ABG is pending. Chest x-ray showed chronic changes without evidence of acute pulmonary disease. 12/20/2023, the patient is being seen for a follow-up. More alert and awake compared to yesterday. He is able to move his fingers and toes on today's evaluation. Following commands. Nevertheless, his J tube has been clogged and was unable to utilize the tube that has been some leaks around the tube. No abdominal distention. No nausea or emesis. Hemodynamically stable. Will undergo hemodialysis today. He remains on pressure control mode of mechanical ventilation at rate of 16, pressure of 10, +5 PEEP with an FiO2 of 30%. Chest x-ray from today is essentially unchanged with a stable cavity in his right upper lobe. White cell count of 15.7, hemoglobin 7.2, platelet count is 203, blood gas showed a pH of 7.49 with a pCO2 of 33 and pO2 of 73. BUN is 88 with a creatinine 1.89 and sodium is at 141 with a potassium level of 4.1. He is producing adequate amount of urine output. Fluid balance has been -900 cc over the past 24 hours. Normotensive. Remains on a combination of Zosyn and daptomycin. Remains on Levemir insulin 24 units daily. This is currently on hold as the patient has not been able to obtain enteral feeding. Wound VAC still in place. 12/21/2023, the patient remains on the mechanical ventilator. Overnight, the patient experienced discomfort in his abdomen and he was restless. Based on that, the patient was placed on a higher dose of Precedex which is currently running at 0.6 mcg/kg/h. The patient was also asynchronous with the mechanical ventilator and based on that, the patient was switched to an AC mode and currently is at a rate of 16, tidal volume of 400, FiO2 of 30% with a PEEP of 5. The patient is adequately sedated for now. Chest x-ray remains unchanged. Tracheostomy tube in place and the patient is having increased amount of respiratory secretions. J tube needs to be replaced today and this will be done by his general surgery as the tube remains clogged. Urine output is low order of 30 cc an hour. Afebrile. Remains on Zosyn and daptomycin. White cell count is 16.9, hemoglobin 7.4 and a platelet count of 280. Blood gas from today showed a pH of 7.46 with a pCO2 of 36 and pO2 of 82. Sodium levels of 144, BUN is 19 with a creatinine of 2.2 and a serum bicarb is at 23. The abdominal wound remains unchanged. RAYA drain is serosanguineous. 12/22/2023, patient remains on Precedex at 0.4 mcg/kg/min. Arousable. Communicates. Profoundly weak. Remains on the mechanical ventilator with a rig ht lung abscess. SIMV mode mode rate of 16, tidal volume of 400, FiO2 30% with a PEEP of 5, with a pressure support of 8. Blood gas showed a pH of 7.46 with a pCO2 of 32 and a pO2 of 82. Chest x-ray remains unchanged with a right upper lobe cavitating lesion/opacity and a suspected lung abscess. This is rated Pseudomonas and the patient remains on IV Zosyn. He remains on daptomycin. Urine output is in order of 50 cc an hour.. The J-tube was unplugged yesterday. Nevertheless, the tube itself is malfunctioning and there is drainage around the tube requiring dressing changes the dressings being soakedConstantly. The patient's white cell count is 12.3 with a hemoglobin 7.7. Sodium is at 149, BUN 91 with a creatinine of 2.3. Bicarb is at 20. Undergoing hemodialysis periodically. Last hemodialysis was on 12/21/2023. Currently NPO. Abdominal wound is clean and the patient has a wound VAC in place. RAYA drain output is serosanguineous. Patient was seen today on 12/23/2023, remains in the ICU, intubated and mechanically ventilated. Patient is on IMV with pressure support/IMV 16, pressure support of 8, tidal volume 400, PEEP of 5. Patient seems to be doing well with that kind of mode of mechanical ventilation, ABG showed a pO2 of 76 pCO2 28 pH of 7.50. I changed his rate from 16-8 kept him otherwise on the same ventilator settings. Plan to gradually go down on the IMV rate until we can get him on pressure support of 8 and CPAP. Patient is requiring Precedex at 0.4 m cg/kg/h, he is on D5W at 50 cc/h. Remains on antibiotics in the form of daptomycin and Zosyn, chest x-ray continues to show bilateral airspace disease and right upper lobe lung abscess. Continues to have a bit of a leak from his J-tube being addressed by surgery has a wound VAC, and he had a RAYA drain. Mentation arce the patient is a bit more appropriate, opens his eyes, follows very simple instructions, seems to comprehend. Patient has a left brachial PICC line, he also has a left groin hemodialysis catheter. WBC count is 10.1 hemoglobin is 7 sodium is 149 potassium 4 chloride is 121 BUN is 86 creatinine 2.31. Blood sugar is 173. Remains on enteral feeding via J-tube, a bit of a leak is noted, and surgery is to address this. Sputum cultures have grown Klebsiella and Pseudomonas and remains on proper antibiotics Patient was seen and examined today on 12/24/2023, patient remains in the ICU, and mechanically ventilated. On IMV mode of 8 pressure support of 8 tidal volume 400 FiO2 30% and PEEP of 5 ABG showed a pO2 of 81 pCO2 32 pH of 7.45. Patient remains on daptomycin and Zosyn, remains on Precedex at 0.4 mcg/kg/h intermittently receiving Dilaudid for pain. Feeding arce is presently on hold, patient had a leak around the jejunostomy tube, surgery is recommending a trick le feed or TPN if could not use the J-tube. Patient is arousable follows simple instructions, and today I had a chance to get rid of the IMV mode, and I am recommending a pressure support of 8 and CPAP. For the last few hours the patient has been tolerating this mode of mechanical ventilation, however he is not quite ready to go to [facility] at this point. Chest x-ray continues to show significant opacity in the right upper lobe and airspace disease in the right lower lobe. Previously patient had a CT of the chest showing right upper lobe abscess. Again he remains on Zosyn and daptomycin.Labs today showed WBC count of 10.6 hemoglobin 7.8 sodium is 147, patient is now on D5W at 100 cc an hour his bicarb is 19 BUN 74 creatinine 2.08, gradually improving, his last hemodialysis was on the , nephrology is considering removing his dialysis catheter in the left groin and I believe that is appropriate patient was seen and examined today on 12/25/2023, remains in the ICU, intubated and mechanically ventilated. Patient had to be placed back on assist-control mode of mechanical ventilation yesterday, mostly because he developed significant agitation and restlessness, and ongoing persistent cough with some air leak from the cough of that tracheostomy. Patient had to be sedated and he was placed on propofol and he remains on propofol at 50 mcg/kg/min. Maximal dose of Precedex yesterday could not calm him down, hence we had to transition him from pressure support/CPAP mode of mechanical ventilation to assist-control mode of mechanical ventilation and fully sedated him with propofol replacing Precedex. Today the patient is sedated, he is on assist-control rate of 16 ti sierra volume 400 FiO2 30% PEEP of 5 ABG showed a pO2 of 98 pCO2 30 pH of 7.45 chest x-ray is basically the same showing significant airspace disease in the right upper lobe and right lower lobe. Remains on daptomycin and Zosyn. His IV fluid was transitioned to D5 4 5 from D5W sodium today is 141. His urine output is about 40 to 50 cc/h, renal profile is improving with steady trending of creatinine down. Patient continues to have leakage around the jejunostomy tube. Patient is being followed by surgery no specific recommendation made except to continue the same and except the leak as it isLabs today showed WBC count of 11.5 hemoglobin 8.2 basic metabolic profile is normal BUN is 60 creatinine down to 1.81 Patient seen today on 12/26/2023, remains in the ICU intubated mechanically ventilated sedated patient is on assist-control rate of 16 tidal volume 400 FiO2 30% PEEP of 5 ABG showed a pO2 of 82 pCO2 34 pH of 7.43. Patient is now on TPN at 30 cc/h propofol at 50 mcg/kg/min hemoglobin is down to 6.8 today and he is receiving a unit of packed RBCs. His IV fluids at 50 cc/h in the form of 0.9 normal saline. He was last night on a small dose of norepinephrine at 0.01 mcg/kg/min and is presently on hold. Antibiotics arce patient is on Zosyn daptomycin and Eraxis. Chest x-ray continues to show significant airspace disease involving the right upper lobe and right lower lobe not much of a change noted on the chest x-ray. Clinically the patient is about the same, today I plan to discontinue propofol, arrange for the patient to go on Precedex, and assess mental status off sedation. If tolerated, may transition the patient again to pressure support and CPAP type of mechanical ventilation, but he is not ready to go to that transition yet. WBC count is 11.6 hemoglobin 6.8. ABG today showed a pO2 of 82 pCO2 34 pH of 7.43 potassium is 3.3 being addressed accordingly BUN is 53 creatinine 1.84 Patient was evaluated today on 12/27/2023, remains in the ICU intubated and mechanically ventilated. Patient is presently on IMV mode of mechanical ventilation with pressure support rate of 16 pressure support 14 tidal volume 400 FiO2 30% and PEEP of 5 ABG showed a pO2 of 99 pCO2 31 pH of 7.44. Intermittently the patient has been experiencing episodes of extreme agitation and restlessness he is on Precedex at 0.5 mcg/kg/h. Patient is on IV fluid 0.9 normal saline at 50 cc/h and is also receiving TPN. Remains on Eraxis daptomycin and Zosyn patient is intermittently requiring Dilaudid, Ativan does not seem to help his agitation and restlessness. But Dilaudid does hence I would recommend 0.5 mg every 2-3 hours as needed for agitation. Patient has good urine output roughly about 100 cc/h. Continues to have leakage around the jejunostomy tube, and patient is undergoing the J-tube exchange today. Family is at bedside, seems to be quite anxious about his overall condition, and I explained to the that we are doing the best we can considering his critical illness situation and critical illness polyneuropathy. Patient is profoundly weak, and weaning the patient from mechanical ventilation is almost impossible. At least not at this point yet WBC count is 10.9 hemoglobin is 8.1 basic metabolic profile is normal BUN is 46 creatinine 1.90 patient has been off hemodialysis since the . Chest x-ray continues to show stable findings with right upper lobe opacity and right lower lobe opacity and possibly a small right-sided pleural effusion Was evaluated today on 12/28/2023, patient remains in the ICU, intubated and mechanically ventilated, on IMV mode of mechanical ventilation rate set at 16 he is on pressure support of 14 tidal volume 400 FiO2 30% and PEEP of 5 ABG showed a pO2 of 113 pCO2 31 pH of 7.43. No major events overnight, patient is still requiring Precedex at 0.7 mcg/kg/h. He is on TPN as we could not use his jejunostomy tube, no jejunostomy tube was done yesterday, IV fluid is 0.9 at 50 cc/h remains on TPN at 65 cc/h patient is on Eraxis daptomycin and Zosyn. Chest x-ray is showing improvement in his right upper lobe airspace disease/lung abscess and there is a slight improvement in his right lower lobe opacity. Kathryn ent is arousable but does not follow any instructions, patient gets agitated easily if aroused and he started gagging on the tracheostomy tube. Family is at bedside, again updated on his condition. WBC count is 7.6 hemoglobin 7.9. Basic metabolic profile is normal BUN is 45 creatinine down to 1.51 patient has not had any dialysis since 12/17, his renal functioning and urine output continues to improve, hence I am strongly recommending removing his dialysis catheter Patient was seen on 12/29/2023, remains intubated and mechanically ventilated, in the ICU, on IMV of 16 tidal volume 400 FiO2 30% PEEP of 5 ABG showed a pO2 of 105 pCO2 31 pH of 7.45. Remains on Precedex at 0.8 mcg/kg/h, remains on TPN at 65 cc/h IV fluid 0.45 at 50 mL/h remains on multiple antibiotics and antifungal including Eraxis daptomycin and Zosyn. His hemodialysis catheter has been removed, urine output has been excellent renal functioning is improving chest x- ray is showing improvement in his right upper lobe airspace disease/pulmonary abscess. Right lower lobe seems about the same with chronic opacity and possibly some small right-sided pleural effusion. Family is at bedside, patient is arousable but does not follow any instructions. Gets extremely restless and agitated easily hence patient is receiving Dilaudid which seems to be working much better for this patient than benzodiazepines. And we are trying to avoid Ativan, trying to avoid any propofol as much as possible. I believe his drainage from the jejunostomy tube is becoming less and less, hence we could start considering early next week arrangement to possibly transfer the patient to a select care specialty. In the meantime I am recommending that we go down on the IMV rate by 2 every 2 hours the goal is pressure support of 14 and IMV of 8. Progress note dated December 30, 2023. This is a 73-year-old male who is now been in the hospital for 48 days. The patient was admitted back on November 11. Currently, he is seen in the intensive care unit, room 253. The patient is currently on synchronized IMV mode, rate of 8, pressure support of 14, PEEP of 5, FiO2 30%, and a backup tidal volume of 400 cc. Blood gases showed a pO2 of 87, pCO2 of 31, and a pH of 7.42. The patient will be switched back to the volume assist-control mode, as he is not ready to be weaned. His minute volume is nearly 18 L/min. He is breathing at a rate of about 40 times per minute. He currently is on Precedex 0.8 mics per kilogram per minute, TPN at 90 cc an hour, and half-normal saline at 50 cc an hour. The patient continues on Zerbaxa, Eraxis, and daptomycin. White count 11.5, hemoglobin 8.1, hematocrit 25, platelet count of 78,000. Sodium 142, potassium 4.2, chlorides 119, CO2 20, BUN 42, and creatinine 1.22. Glucose is 178. Albumin is 1.9. Sputum from December 24 shows evidence of Citrobacter freundii and Pseudomonas aeruginosa. Blood cultures from the same day were positive for Staphylococcus. Chest x-ray shows extensive pleural-parenchymal opacities, in both lungs, and the chest x-ray is largely unchanged from the pre vious days x-ray. Progress note dated December 31, 2023. 73-year-old male now here in the hospital for 49 days. The patient was admitted way back on November 11. He is seen today in room 253. Family members are at the bedside. The patient currently is on volume assist-control, rate 32, tidal volume 400, FiO2 30%, PEEP of 5. Blood gases show pO2 of 94, pCO2 of 35, pH is 7.40. Unfortunately, the patient is not synchronous with the ventilator, and so we switched to pressure regulated volume control or VC plus. We set an inspiratory time at 0.8 seconds, and the targeted tidal volume of 450 cc. The patient is on TPN at 70 cc an hour, saline at KVO, propofol at 40 mcg/kg/min. The patient continues on Eraxis, daptomycin, and Zerbaxa. Current labs include a white count 12.8, hemoglobin 7.3, hematocrit 22.4, and a platelet count of 67,000. Sodium 140, potassium 3.6, chlorides 119, CO2 20, BUN 43, creatinine 1.15. Glucose is 223. Calcium is 6.8. Today's chest x-ray is largely unc hanged. Progress note dated January 01, 2024. 73-year-old male seen again in room 253. The patient has not been in the hospital for 50 days. The patient continues on the mechanical ventilator. He is on pressure regulated volume control, or VC plus. His target tidal volume is 450 cc and his inspiratory time RTI is 0.8 seconds. His respiratory rate is 32. PEEP is 5, and FiO2 is 30%. Blood gases show pO2 of 98, pCO2 of 34, and a pH of 7.40. The patient continues on propofol at 15 mcg/kg/min, and TPN at 90 cc an hour. The patient also continues on Zerbaxa, daptomycin, and Eraxis. White count is 12.1, hemoglobin 7, hematocrit 22.0, and platelet count 69,000. Sodium 141, potassium 4.3, chlorides 120, CO2 19, BUN 44, creatinine 1.11. Calcium is 7. Chest x-ray shows a right-sided pleural effusion, with adjacent atelectasis and/or consolidation. There is a small left-sided pleural effusion as well. Progress note dated January 02, 2024. 73-year-old male seen again in room 253. The patient has not been here in the hospital for 51 days. He remains on mechanical ventilator. He is on the pressure regulated volume control modality no also noted his VC plus. The patient is on a rate of 32 breaths/min, PEEP of 5, FiO2 30%, inspiratory time her TI was 0.8, and a target tidal volume of 450 cc. Blood gases show pO2 of 90, pCO2 34, pH is 7.40. The patient is receiving TPN at 90 cc an hour, propofol at 20 mcg/kg/min, and has received a total of 6 units of packed red blood cells. The patient is going to get Dilaudid and Ativan scheduled. Dilaudid will be 1 mg every 2 hours, and Ativan 1 mg every 6 hours. The patient continues on daptomycin, Eraxis, and Zerbaxa. White count is 10, hemoglobin 6.5, hematocrit 20.3, platelet count 83,000. Sodium 140, potassium 4.6, ch lorides 119, CO2 20, BUN 45, creatinine 1.08. Most recent cultures are from December 24, showing evidence of Citrobacter from the and Pseudomonas aeruginosa, in the sputum. Blood cultures, on the same day, show evidence of Staphylococcus species. Chest x-ray shows extensive pleural-parenchymal opacities in the right hemithorax, and patchy opacity at the left lower lobe area. Progress note dated January 03, 2024. 73-year-old male seen in room 253. The patient has now been in the hospital for 52 days. He remains on mechanical ventilator, with the modality being the pressure regulated volume control modality, also known as VC plus. The patient's inspiratory time is 0.8 seconds, and his targeted tidal volume is 450 cc. Rate is 32, FiO2 30%, PEEP of 5. Blood gases show pO2 of 95, pCO2 of 34, pH of 7.41. The patient is on TPN at 90 cc an hour, propofol at 15 mcg/kg/min, saline at 10 cc an hour. Daptomycin and Eraxis have been discontinued. Zerbaxa is on day #6 of . We are going to DC the metoprolol and midodrine from the [facility]. Apparently, the patient has been denied twice, to the senior care acute care facility by his insurance. White count is 1.5, hemoglobin 8, macro 24.4, platelet count 78,000. Sodium 139, potassium 5.3, chlorides 119, CO2 20, BUN 44, creatinine 1.05. Glucose 192. Calcium 7.1. Magnesium 1.8. The chest x- ray today, is largely unchanged. Progress note dated January 04, 2024. 73-year-old male seen in room 253. The patient has now been in the hospital for 53 days. He remains on the mechanical ventilator. He is on pressure regulated volume control or VC plus, but the inspiratory time is 0.8 seconds, and a targeted tidal volume of 450 cc. His rate is 32, FiO2 is 30%, PEEP of 5. Blood gases show pO2 of 81, pCO2 of 35, and a pH of 7.44. He is on propofol at 10 mcg/kg/min, TPN at 90 cc an hour, and saline at 10 cc an hour. His only anti biotic currently is Zerbaxa. White count 13.4, hemoglobin 8.1, hematocrit 25, platelet count 95,000. Sodium 141, potassium 5.2, chlorides 114, CO2 23, BUN 47, creatinine 1.10. Glucose is 110. Calcium 7.4. Albumin is 1.8. Chest x- ray shows a largely unchanged evaluation. Progress note dated January 05, 2024. 73-year-old male seen in room 253. The patient has now been in the hospital for 54 days. He remains on mechanical ventilator. He is on pressure regulated volume control, with inspiratory time of 0.8 seconds, and a targeted tidal volume of 450 cc. Rate is set at 32, FiO2 30%, PEEP of 5. Blood gases show pO2 of 98, pCO2 35, and a pH of 7.42. The patient's propofol has been weaned off. He is just getting scheduled Dilaudid and Ativan. He is getting TPN at 90 cc an hour, saline at 10 cc an hour. His only antibiotic is Zerbaxa, as Eraxis, and daptomycin has been discontinued. The patient will get a spontaneous breathing trial today with pressure support of 10 and CPAP of 5. White count 11.3, hemoglobin 7.6, hematocrit 23.4, platelet count 100,000. Sodium 138, potassium 3.9, chlorides 116, CO2 21, BUN 46, Creatinine 1.07. Albumin Is 1.9. Chest x- ray is largely unchanged. Patient was reevaluated today on 01/17/2024, patient was supposed to be sent home today with hospice to follow at home, however the family today/ change her mind, and asking to consider palliative care, she is also asking for a second opinion but she is not specific about the second opinion, explained to her that the only 3 wind commissioning technician that we have in this institution is myself Dr. Livia espinoza and Dr. Nieves and we have all given the same opinion, and if she could find a place where they could accept him to transfer to another institution, I will be more than happy to do so patient was declined transfer to [facility] he was also declined transfer to the [facility]. Today he is on pressure control mode of mechanical ventilation basically unchanged compared to yesterday. He remains on Precedex 1.4 mcg/kg/h remains on TPN, still could not use his J-tube. Patient is intermittently on Dilaudid, antibiotics arce he is receiving Cipro and fluconazole. Patient had multiple attempts to wean, could not tolerate more than few hours of pressure support of 14 and CPAP this has been done quite frequently and sometimes he does not even tolerate the switch from pressure control mode of mechanical ventilation to pressure support of mechanical ventilation. Patient is definitely a failure to wean and multiple attempts have failed. Patient has critical illness polyneuropathy he continues to have some nonspecific airspace disease bilaterally continues to have a pigtail catheter in place, and continues to have air leak,WBC count today is 16.3 hemoglobin 8.1 electrolytes showed low potassium of 3.3 being addressed accordingly renal profile is normal. Chest x- ray today is actually showing improvement compared to the previous x-rays he had all along. With significant improvement in the right upper lobe and the right lower lobe, continues to have some infiltrate in the left lower lobe Castriz seems to be intact Patient was seen01/18/24, remains in the ICU, remains intubated and mechanically ventilated, he is on pressure control mode of mechanical ventilation with pressure control of 15, DI of 0.8, rate 20, FiO2 30% and PEEP of 5 no ABG was done this morning did not feel to be necessary. Patient had a WBC of 15.8 hemoglobin 7.4. Basic metabolic profile is normal renal profile is normal continues to have bilateral airspace disease on chest x-ray specially the right upper lobe, and left lower lobe. Continues to have a pigtail catheter in place and continues to drain and he continues to have a air leak. Patient remains on ciprofloxacin, he is also on fluconazole, tobramycin was added by infectious disease on the case. Patient is getting now physical therapy and Occupational Therapy, he remains on Precedex at 1.3 mcg/kg/h he is also on TPN at 90 cc/h chest x-ray was noted and again he has bilateral airspace disease. Patient remains frail, chronically ill, and he does have clearly critical illness polyneuropathy. No plans by surgery to do much about his J-tube, continues to have a wound VAC in place. Today the patient will be given another trial of pressure support and CPAP, and will document how long he could do on pressure s upport mode of mechanical ventilation Patient was seen today on 01/19/2024, patient remains in the ICU, intubated and mechanically ventilated. Patient tolerated about 2 hours of pressure support and CPAP weaning yesterday, then he became restless, agitated, and went on to develop this ongoing cough. Hence had to be placed back on mechanical ventilation and remains on pressure control mode of mechanical ventilation with PI 15 ti 0.8 per 820 FiO2 30% PEEP of 5. Patient continues to have episodes of agitation and he has been on Precedex at 1.1 mcg/kg/h. Remains on TPN at 90 cc/h remains on IV fluid of 0.9 at 50 cc/h sodium is 129, that we will correct with 0.9 normal saline. Patient remains on tobramycin and ciprofloxacin and fluconazole. Continues to have right-sided pigtail catheter in place, and continues to have ongoing air leak. Chest x-ray continues to show airspace disease in both lungs but more concerning is the right upper lobe abnormality. Multiple attempts have been made in the past to wean the patient, and has not been able to tolerate more than few hours of pressure support and CPAP, will try another weaning trial today with pressure support of 14 and CPAP. Unfortunately I cannot place the patient on Seroquel and hoping to get rid of Precedex, mostly because we cannot use his GI tract. Fanny arce the patient remains on TPN. Progress note dated January 20, 2024. 73-year-old male who is now been in the hospital for 69 days. I last saw the patient on January 05, 2024. Currently, the patient remains in the intensive care unit, room 253. He spent about 20 hours on pressor support of 14 and CPAP of 5, yesterday, and is currently back on pressor support and CPAP. When not on pressor support and CPAP, the patient is on pressure assist control, with an inspiratory pressure of 15 cm of water, and inspiratory time is 0.8 seconds. Respiratory rate 20, PEEP 5, and FiO2 30%. The patient remains on TPN at 90 cc an hour, and saline at 50 cc an hour. He continues on Precedex at 1 mcg/kg/h. The patient is also on ciprofloxacin, tobramycin, and Diflucan. Current labs are good a white count 16.3, hemoglobin 8.3, hematocrit 25.3, and a normal plate let count. Sodium 130, potassium 3.7, chlorides 103, CO2 22, BUN 30, creatinine 0.65. Albumin is 2.2. Glucose is 195. Most recent sputum shows evidence of Pseudomonas aeruginosa. Chest x-ray is showing chronic changes, with no appreciable change. Progress note dated January 21, 2024. 73-year-old male who has now been in the hospital for 70 days. The patient is seen again today in room 253. Since yesterday, the patient has been on pressor support of 14, CPAP of 5. FiO2 is 30%. He did not need to go back on pressure assist control ventilation. He is currently on Precedex and 0.9 mcg/kg/h, TPN at 90 cc an hour, saline at KVO. The patient had a pretty uneventful night. He does have some episodes of coughing. We did add some aerosolized lidocaine, which seemed to help initially, but may be more recently not so much. White count 16.6, hemoglobin 7.8, macro 24.4, and platelet count normal. Sodium 129, potassium 3.7, chlorides 102, CO2 21, BUN 27, creatinine 0.59. Glucose 168. Magnesium 1.4. Most recent sputum culture showed evidence of Pseudomonas aeruginosa. No chest x-ray today. The patient is currently on tobramycin, ciprofloxacin, and fluconazole, as per infectious diseases. Progress note dated January 22, 2024. 73-year-old male who is now been here for 71 days. The patient is seen today in room 253. He continues on pressure support of 14, CPAP of 5. The patient's FiO2 is 30%. He is getting TPN at 90 cc an hour, saline at 50 cc an hour, and Precedex at 0.5 mcg/kg/h. He continues on ciprofloxacin, tobramycin, and fluconazole. We will attempt some trach collar today. White count 14.9, hemoglobin 7.9, hematocrit 24.6, platelet count 399,000. Sodium 130, potassium 3.6, chlorides 104, CO2 22, BUN 25, creatinine 0.64. Glucose is 180. Albumin i s 2.3. Progress note dated January 23, 2024. 73-year-old male seen today in room 253. Since about noon yesterday, the patient's been on trach collar 40%. Prior to that, the patient was on pressor support and CPAP. The patient continues on TPN at 90 cc an hour, saline at 50 cc an hour. The patient continues on ciprofloxacin, and fluconazole. In addition, the patient is on Precedex 0.5 mcg/kg/h. We are hoping to get the patient to long-term acute care today. Labs today include a sodium 131, potassium 3.7, chlorides 102, CO2 23, BUN 22, creatinine 0.67. Glucose is 164. Calcium 7.6. Albumin 2.5. Most recent sputum sample from January 06, shows evidence of Pseudomonas aeruginosa. No chest x-ray today. Progress note dated January 24, 2024. 73-year-old male seen today in room 253. The patient has been on 40% trach collar, for more than 2 days. The patient continues on TPN at 90 cc an hour, saline at 50 cc an hour. Precedex has been weaned off. The patient continues on alternative medications such as Ativan and Dilaudid. Current labs include a white count 15.9, hemoglobin 7.8, hematocrit 24.4, and a normal platelet count. Sodium 130, potassium 3.5, chlorides 106, CO2 23, BUN 21, creatinine 0.67. Albumin is 2.3. Progress note dated January 25, 2024. 73-year-old male who is now been in the hospital for 72 days. The patient is currently on 40% trach collar. He has been on trach collar for about 3 days. He is getting TPN at 90 cc an hour, saline at 50 cc an hour. According to his , he has been denied transfer to long-term acute care facility. He may end up in a local correction. Current labs include a white count 20.1, hemoglobin 8.3, hematocrit 26.7, and a normal platelet count. Sodium 131, potassium 3.8, chlorides 106, CO2 20, BUN 21, and creatinine 0.66. Glucose is 139. Calcium is 7.3. Chest x-ray shows bilateral airspace disease, which is improved. CT scan of the chest abdomen pelvis shows decreasing of the hydropneumothorax in the right lung, bibasilar infiltrates, dilated small bowel loops, possible acute diverticulitis of the sigmoid colon, moderate anasarca, and the presence of a peritoneal dialysis catheter and small bowel drainage tube. Progress note dated January 26, 2024. 73-year-old male who is now been here in the hospital for 75 days. The patient continues on 40% trach collar. He has been on trach collar for about 3 days now. He is also receiving TPN at 90 cc an hour, saline at 50 cc an hour. Apparently, his admission to long-term acute care, and to the correction, was denied. Current labs include a white count 16.3, hemoglobin 7.2, hematocrit 22, platelet count 403,000. Sodium 130, potassium 3.4, chlorides 104, CO2 25, BUN 19, creatinine 0.66. Glucose 148. Calcium 7.1. Objective - Vital Signs Vital signs: Vital Signs Temp 97.7 F 01/26/24 04:00 Pulse 89 01/26/24 09:11 Resp 28 H 01/26/24 07:00 BP 142/94 01/26/24 07:00 Pulse Ox 95 01/26/24 08:40 FiO2 40 01/26/24 08:40 Intake & Output 01/25/24 01/26/24 01/26/24 18:59 06:59 18:59 Intake Total 1080 1630 140 Output Total 1942 1934 140 Balance -863 -305 0 Weight 106.7 kg Intake: IV 1080 1630 140 Sodium Chloride 0.9% 1, 550 50 000 ml @ 50 mls/hr IV . Q20H [facility] Rx#:[id number] TPN 1080 1080 90 Output: Chest Tube Drainage 40 Chest Tube Right 40 Drainage 40 Right Abdomen 40 Urine 1939 1855 140 Stool 3 Other: Voiding Method Indwelling Catheter Indwelling Catheter # Voids 1 ABP, PAP, CO, CI - Last Documented Arterial Blood Pressure 173/76 - Exam No acute distress, awake and alert, in no acute distress, with a midline tracheostomy tube. Patient is currently on 40% trach collar HEENT examination is grossly unremarkable. Neck supple. Full range of motion. No adenopathy thyromegaly or neck vein distention. Midline tracheostomy tube noted. Trach collar in place. Cardiovascular examination reveals regular rhythm rate. S1-S2 normal. No S3 or S4. No discernible murmur noted. Lungs reveal mild scattered rhonchi. No wheezes or crackles. Breath sounds equal. Saturations are 97%. Abdomen soft, without bowel sounds. Extremities are intact. No cyanosis clubbing or edema. Skin is without rash or lesion. Neurologic examination is somewhat improved. - Labs CBC & Chem 7: 01/26/24 05:31 01/26/24 05:31 Labs: Abnormal Lab Results - Last 24 Hours (Table) 01/25/24 01/25/24 01/26/24 Range/Units 11:54 23:27 05:31 WBC 16.3 H (3.8-10.6) k/uL RBC 2.40 L (4.30-5.90) m/uL Hgb 7.2 L (13.0-17.5) gm/dL Hct 22.0 L (39.0-53.0) % RDW 17.0 H (11.5-15.5) % Neutrophils # 11.0 H (1.3-7.7) k/uL Monocytes # 1.1 H (0-1.0) k/uL Sodium (137-145) mmol/L Potassium (3.5-5.1) mmol/L Glucose (74-99) mg/dL POC Glucose (mg/dL) 140 H 139 H (70-110) mg/dL Calcium (8.4-10.2) mg/dL 01/26/24 01/26/24 Range/Units 05:31 06:03 WBC (3.8-10.6) k/uL RBC (4.30-5.90) m/uL Hgb (13.0-17.5) gm/dL Hct (39.0-53.0) % RDW (11.5-15.5) % Neutrophils # (1.3-7.7) k/uL Monocytes # (0-1.0) k/uL Sodium 130 L (137-145) mmol/L Potassium 3.4 L (3.5-5.1) mmol/L Glucose 125 H (74-99) mg/dL POC Glucose (mg/dL) 148 H (70-110) mg/dL Calcium 7.1 L (8.4-10.2) mg/dL Assessment and Plan Assessment: Acute hypoxemic respiratory failure with failure to wean from mechanical ventilation, S/P tracheostomy/PEG tube on December 10, 2023. Respiratory failure, requiring reintubation, on November 25, 2023. Acute hypoxic respiratory failure requiring intubation/mechanical ventilation secondary to aspiration during EGD on 11/12/2023. Patient was extubated on 11/14/2023. S/P J-tube placement 11/16/2023, which continues to leak. Septic shock. Acute kidney injury secondary to sepsis, and ATN. Acute bowel obstruction, diagnosed via CT scan, November 24, 2023. Acute aspiration pneumonia. Acute aspiration during upper endoscopy most likely secondary to gastric outlet obstruction secondary to non-Hodgkin's lymphoma. Chronic abdominal pain, secondary to B-cell lymphoma. Unexplained weight loss most likely secondary non-Hodgkin's lymphoma involving the stomach. Paroxysmal atrial fibrillation. Chronic anemia. Plan: Plan dated November 21, 2023. The patient is seen today in room 517. The patient is on 3 L of oxygen. He continues on Zosyn. Continues on tube feeds. He had a CT scan of the abdomen and pelvis. His respiratory status is improved. We will continue to follow. Prognosis is guarded. Labs, x-rays, medications are reviewed. The patient is apparently scheduled for an outpatient PET scan. Plan dated November 22, 2023. The patient appears very stable. His is in the room with him. Labs, x- rays, and medications are reviewed. The patient continues on Zosyn. Resting room air saturation was 89%. Chest CT, revealed bilateral patchy and basilar infiltrates. We will continue to follow make recommendations along the way. Prognosis is guarded. The patient was diagnosed with a gastric outlet obstruction, secondary to non-Hodgkin's lymphoma. Plan dated November 23, 2023. The patient is seen today in room 517. He is resting comfortably. He continues on saline at 10 cc an hour. He is getting tube feedings with Pivot at 20 cc an hour. He has been weaned down to 2 L of oxygen. He continues on Zosyn. Labs, x-rays, and all medications are reviewed. Prognosis is guarded. We will continue to follow. Plan dated November 24, 2023. The patient will be admitted to the intensive care unit. I believe he deserves to be an ICU patient. I did speak to the surgeon. Labs, x-rays, and medications are reviewed. No additional recommendations are made. Prognosis is guarded. The patient has now been in the hospital for 12 days. We will continue to follow. He continues on Zosyn. Plan dated December 14, 2023. The patient is seen today in room 253. Currently, the patient is on the ventilator. He will have another PSV/CPAP trial. Apparently yesterday, he went for about 2-1/2 hours before he required to be placed back on the ventilator. The patient is getting saline at 10 cc an hour, and Nepro tube feedings at 50 cc an hour, which is goal. The patient had a fever, and will be recultured. In addition, the midline incision in the abdomen, shows some evidence of purulence, and will have a surgeon, take a look at that. Currently, the patient is not on any antibiotics. We will recheck a procalcitonin level. One of the family members was in the room, and was updated. Plan dated December 15, 2023. The patient actually spent about 6 hours on pressor support yesterday. The patient will have another spontaneous breathing trial today. The patient remains off of all sedation. He is getting Ativan and Dilaudid as needed. He is receiving tube feedings at goal. Labs, x-rays, and medications are reviewed. The repeat procalcitonin level was elevated at 1.92. We added Zosyn empirically. He had pancultures done yesterday. Labs, x-rays, and all medications are reviewed. Prognosis is guarded. An update was given to the daughter and to the right. Dictation was produced using [employer] software. Please excuse any grammatical, word or spelling errors. Plan dated December 30, 2023. The patient is seen today in room 253. The patient has now been in the hospital for 48 days. He was admitted way back on November 11. The patient currently is not ready to be weaned, given his high respiratory rate, and high minute volume. The patient is converted back to volume assist-control. In addition, the patient continues on Zerbaxa, Eraxis, and daptomycin, because of recent infections, including Pseudomonas, and Citrobacter, as well as Staphylococcus. Labs, x-rays, and medications are reviewed. The patient will continue on a small dose of propofol, Dilaudid as needed, and Ativan. Dexmedetomidine which is currently running was to be discontinued. Additional recommendations and suggestions are forthcoming. Prognosis is poor in my opinion. The patient remains a full code. The remains hopeful. Dictation was produced using [employer] software. Please excuse any grammatical, word or spelling errors. Plan dated December 31, 2023. The patient is seen today in room 253. Family members are at the bedside. After observing the patient on the ventilator, for period of time, it was clear to me, the patient was not synchronous with the ventilator. For that reason, we switched from volume assist-control, to pressure regulated volume control or VC plus. The patient had a inspiratory time of 0.8 seconds, and a targeted tidal volume of 450 cc. Everything else stayed the same. After switching, the patient's respiratory rate came down, as did his minute volume. He appeared much more comfortable. Labs, x-rays, medications are reviewed. The patient continues on Zerbaxa, Eraxis, and daptomycin. We will continue to follow. Prognosis is guarded. No additional recommendations are made. The patient is on propofol at 40 mcg/kg/min. I have asked the nurses to use both Ativan every 6 hours, and Dilaudid every 2 hours as needed, to see if we can get him on a small dose of propofol so that we can send the patient to long-term acute care facility. Prognosis is guarded. Dictation was produced using [employer] software. Please excuse any grammatical, word or spelling errors. Plan dated January 01, 2024. The patient is seen today in room 253. I had a long conversation with the patient's family yesterday. It was encouraged, by the primary service, Dr. Rowe. Dr. Rowe also talked to the family about CODE STATUS, and the possibility of a palliative care consult or hospice consultation. The patient is chronically and critically ill, but stable. The patient remains on the mechanical ventilator, and is not able to be weaned at this time. Previous attempts at weaning, has caused significant increases in respiratory rate, significant increases in minute volume, and disruptions of his vital signs. The patient continues on Zerbaxa, daptomycin, and Eraxis. The patient is on a relatively smaller dose of propofol at 15 mcg/kg/min. I have encouraged the nurse to wean that down even further. In addition to propofol, the patient is receiving Ativan, and Dilaudid as needed. Labs, x-rays, medications are reviewed. The patient could be considered for possible discharge to long-term acute care facility or select specialty. Plan dated January 02, 2024. I have ongoing discussions with the family. The patient is doing very poorly in my opinion, and is currently not weanable. The patient, could be transferred to a long-term acute care facility or specialized nursing facility. We are attempting to get his propofol dose down to a reasonable level. I did asked the nurses to make sure that the patient got his Dilaudid, and Ativan, as scheduled medications. The patient blood gases are excellent. pO2 is 90, pCO2 is 34, pH is 7.40. The patient remains on pressure regulated volume control modality of ventilation. Labs, x-rays, and all medications are reviewed. The patient is overall prognosis remains poor. The patient remains a full code patient. I did have a long talk with the patient's just a few days ago. Plan dated January 03, 2024. The patient is seen again in room 253. The , and one of the family members at the bedside. The patient continues on mechanical ventilation, and at this time, cannot be weaned. The patient is getting TPN at 90 cc an hour, propofol at 15 mcg/kg/min. The patient is receiving saline at 10 cc an hour. We were in contact with the infectious disease doctor. Daptomycin and Eraxis were discontinued. The patient is on day #6 of 10, on Zerbaxa. Metoprolol and midodrine were discontinued from the [facility]. The patient's insurance denied transfer to a long-term acute care facility twice now. Labs, x-rays, medications are reviewed. The patient is overall prognosis is very poor. Today's peak airway pressure is 19 cm of water. The Plateau pressure is 11 cm of water. We will continue to follow the patient, make recommendations along the way. I have had ongoing discussions with the patient's . Plan dated January 04, 2024. The patient is seen in room 253. The and daughter are in the room with the patient. She apparently did call [facility] yesterday, to see if they would except her . They apparently said that they had no beds, and did not currently except him. The patient continues on the mechanical ventilator. The patient's antibiotics have been pared down, to only Zerbaxa for another 3 to 4 days. The patient is down to propofol at 10 mcg/kg/min, TPN at 90 cc an hour, and saline at 10 cc an hour. The patient remains on VC plus modality of ventilation. Blood gases show pO2 of 81, pCO2 of 35, pH is 7.44. Labs, x-rays, medications are reviewed. Prognosis is guarded. We will continue to follow. Plan dated January 05, 2024. The patient will be given a spontaneous breathing trial, with pressure support of 10, CPAP of 5. I have asked the respiratory therapist to watch the patient carefully. Should he demonstrate any worsening respiratory status, high respiratory rate, low tidal volumes, high heart rate, diaphoresis, changes in blood pressure, or anything that would suggest fatigue, she should switch her ba ck to the former modality. Labs, x-rays, medications are reviewed. I did spend some time talking to the patient's . I gave her an update. Apparently the patient's did call [facility], to see if he could be transferred. No beds were available. Also, he has been denied transfer to long-term acute care, by his insurance company, twice. Plan dated January 20, 2024. The patient was on pressor support and CPAP, for about 20 hours yesterday. The patient was placed back on pressor support and CPAP, this morning. When not on pressor support and CPAP, the patient is maintained on pressure assist control, with inspiratory pressure of 15 cm of water, inspiratory time 0.8 seconds, FiO2 30%, rate 20, PEEP of 5. Blood gases were not done. TPN is at 90 cc an hour, saline's at 50 cc an hour and Precedex is 1 mcg/kg/h. The patient remains on ciprofloxacin, tobramycin, Diflucan. Clinically, the patient appears to be tolerating weaning trials reasonably well. We are hoping to have the patient transferred to long-term acute care tomorrow. Additional recommendations and suggestions are forthcoming. Prognosis is guarded. Labs, x-rays, and all medications are reviewed. Dictation was produced using [employer] software. Please excuse any grammatical, word or spelling errors. Plan dated January 21, 2024. The patient is seen today in room 253. Family members are at the bedside as they have been all along during this hospitalization. The patient continues on pressure support of 14, and CPAP of 5, and an FiO2 of 30%. He has been on those settings, since yesterday. Clinically, the patient appears reasonably stable. The patient is currently on Precedex 0.9 mcg/kg/h, and TPN at 90 cc an hour. Labs, x-rays, and all medications are reviewed. We are hoping to be able to get the patient discharged to long-term acute care facility. We will continue to follow make recommendations. In terms of antibiotics, the patient is on ciprofloxacin, tobramycin, and Diflucan. Prognosis is guarded. Plan dated January 22, 2024. The patient is again seen today in room 253. He has not been in the hospital for 71 days. The patient continues on pressure support of 14, CPAP of 5, and 30%. He has been on that for more than a day and a half. He continues on TPN at 90 cc an hour, saline at 50 cc an hour. The patient continues on ciprofloxacin, tobramycin, and fluconazole. He is also on Precedex 0.5 mcg/kg/h. We will attempt a trach collar today. We are waiting for authorization from the long-term acute care facility. Labs, x-rays, and all medications are reviewed. Prognosis is guarded. Dictation was produced using [employer] software. Please excuse any grammatical, word or spelling errors. Plan dated January 23, 2024. The patient is seen today in room 253. The patient is currently on a 40% trach collar. He has been on trach collar since about noon yesterday. Prior to that he was on pressor support and CPAP. He continues on TPN at 90 cc an hour, saline at 50 cc an hour. The patient also continues on Precedex 0.5 mcg/kg/h. Antibiotic arce, the patient is on ciprofloxacin, and fluconazole. We are hoping to get the patient to long-term acute care today. I have asked the nurses to try using Ativan, Dilaudid, and Haldol, and small doses, to get the patient off of Precedex. I did speak to the patient's . I gave her an update. Additional recommendations and suggestions are forthcoming. Dictation was produced using [employer] software. Please excuse any grammatical, word or spelling errors. Plan dated January 24, 2024. The patient is seen today in room 253. The patient continues on 40% trach collar. The patient is getting TPN at 90 cc an hour, saline at 50 cc an hour. The Precedex has been weaned off. He continues on fluconazole, and ciprofloxacin. Tobramycin has been discontinued. Labs, x-rays, and all medications are reviewed. We will continue to follow make recommendations. The patient will likely be discharged either to long-term acute care facility, or one of the local nursing homes. Prognosis is certainly guarded. Plan dated January 25, 2024. The patient is again seen today in room 253. He has not been in the hospital for 72 days. Has been on trach collar 40%, for 3 days. He is getting TPN at 90 cc an hour, saline at 50 cc an hour. The patient apparently was denied admission to long-term acute care. He may end up at a local correction. Clinically, he is doing reasonably stable. He continues on ciprofloxacin, and fluconazole as per infectious diseases. The results of his chest x-ray, CT scan of the chest abdomen and pelvis, are reviewed. Prognosis is guarded. Dictation was produced using [employer] software. Please excuse any grammatical, word or spelling errors. Plan dated January 26, 2024. The patient is seen today in room 253. The patient continues on a trach collar, at 40%. The patient is receiving TPN at 90 cc an hour, and saline at 50 cc an hour. Labs, x-rays, and all medications are reviewed. The patient continues on ciprofloxacin, and fluconazole. The patient is stable to be transferred out to the 3 S. unit. I am not sure that there is a bed available for him. Apparently, he was refused admission to long-term acute care, and one of the local nursing homes. We will continue to follow make recommendations. Labs, x- rays, and all medications are reviewed. Time with Patient: Greater than 30
[2024-01-26] MEDS: POTASSIUM CHLORIDE 20 MEQ in WATER FOR INJECTION 1 100ML.BAG IVPB SCH (10:55)
[2024-01-26] MEDS: 1: MVI, ADULT NO.4 WITH VIT K 10 ML, TRACE (CONC-1ML/DOSE) 1 ML, PARENTERAL ELECTROLYTES IV SCH ×2 (10:59→22:45)
--- NOTE | 2024-01-26 11:06 | P.PN ---
Progress Note - Text Progress Note Date: 01/26/24 HISTORY OF PRESENT ILLNESS: No acute events overnight. PHYSICAL EXAM: VITAL SIGNS: Reviewed. GENERAL: frail, weak HEENT: Tracheostomy site clean dry and intact ABDOMEN: Soft. Nondistended. Midline incision with wound VAC in place and intact with granulation tissue. RAYA drain in place. RAYA tube with decrease in surrounding drainage ASSESSMENT: 1. 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 Status post J-tube placement and revision for small bowel obstruction 2. Abdominal wound dehiscence status post wound VAC placement 3. Status post tracheostomy PLAN: -At this time, patients J tube site fistula is mature and it is of no harm to the patient if the J tube has been pulled back as the patient has not been getting any tube feeds. Please do not adjust J tube. This was explained to the patient's family on several occasions. Patients nutritional support will be from TPN. -Wound VAC scheduled changes. -Continue supportive care -Continue TPN for nutrition support Dick Ewing DO [facility] [phone]
[2024-01-26 11:37] LABS: Glucose,Whole Blood 120 mg/dL (70-110)
--- NOTE | 2024-01-26 13:33 | P.PN ---
Subjective Progress Note Date: 01/26/24 January 22, 2024: ICU. Patient was on CPAP this morning. Plan was to take him to trach only this afternoon. Getting IV Precedex. Awake. Moves his head to command. Was able to move his right arm. Wound VAC remains in place. Right chest tube/pigtail catheter in place. Some air leak. Minimal output from the right RAYA drain. Secretions persist through the left J-tube site. at the bedside. Spoke to the licensed master social worker David. Looking into long-term placement. 01/23/24 Patient is evaluated in the ICU at the bedside. Feels anxious today, precedex is being weaned. He is awake alert. He is edematous. Abdominal wound vac in place. Right chest tube/pigtail in place. 55 ML of drainage overnight. Right sided RAYA drain. J tube in place. On TPN. He is pending approval for [facility]. Blood work today reveals a sodium level of 131. Continues on IV Ciprofloxacin/ IV fluconazole. 01/24/2024 Patient remains in the intensive care unit as remains at the bedside. He was weaned off the Precedex today did receive a dose of Ativan this morning however his mood has much improved. Abdominal wound VAC in place with evidence of purulent drainage in the canister. He has had 15 mL of drainage overnight from the right sided chest tube. J-tube remains in place. He continues on TPN. He continues on IV ciprofloxacin and IV fluconazole with plans for repeat abdominal pelvis CT today by infectious disease and consider discontinuation of antibiotics afterwards. Sodium level today is 130. Still pending approval for discharge to LTAC versus [facility]. 01/25/2024 Patient remains in the intensive care unit he continues off IV Precedex at this time. Continues with TPN. Repeat chest abdomen pelvis CT completed yesterday which shows a decrease seen in the hydropneumothorax within the right lung base with drainage catheter there is no change in the bibasilar infiltrates and small left effusion. There is interval development of a dilated small bowel loop in the mid abdomen consistent with either a focal ileus or partial obstruction. There are findings suggestive of acute diverticulitis of the sigmoid colon with a small pericolic phlegmon abscess however is decreasing in the interval from compared in the prior study from 3.4 cm to 3 cm. There is moderate anasarca and the peritoneal dialysis catheter and small bowel drainage tube unchanged in position. Blood work today reveals a white blood cell count of 20.1, hemoglobin 8.3, sodium 131, BUN of 21, creatinine 0.66, magnesium 1.7. He is on IV Cipro. IV Flagyl was added today by infectious disease. Was made a full code at request of family. 01/26/2024 Patient remains in the ICU. More awake alert and oriented today. He continues on the trach collar. Sounds less congested. Continues on IV cipro and IV flagyl. White blood cell count better today at 16.3. Hgb 7.2. Sodium 130, potassium 3.4. Continues on TPN. REVIEW OF SYSTEMS: CONSTITUTIONAL: No fever, no malaise, reports fatigue HEENT: No recent visual problems or hearing problems. Denied any sore throat. CARDIOVASCULAR: No chest pain, orthopnea, PND, no palpitations, no syncope. PULMONARY: Reports shortness of breath, no cough, no hemoptysis. GASTROINTESTINAL: No diarrhea, no nausea, no vomiting, no abdominal pain. NEUROLOGICAL: No headaches, no weakness, no numbness. Anxious. PHYSICAL EXAMINATION: GENERAL: The patient is alert and oriented x2, not in any acute distress. Well developed, well nourished. Trach Collar. HEENT: Pupils are round and equally reacting to light. EOMI. No scleral icterus. No conjunctival pallor. Normocephalic, atraumatic. No pharyngeal erythema. No thyromegaly. CARDIOVASCULAR: S1 and S2 present. No murmurs, rubs, or gallops. PULMONARY: Chest is clear to auscultation, no wheezing or crackles. Diminished. ABDOMEN: Soft, nontender, nondistended, normoactive bowel sounds. No palpable organomegaly. MUSCULOSKELETAL: No joint swelling or deformity. EXTREMITIES: No cyanosis, clubbing, or pedal edema. Peripheral edema 1+ NEUROLOGICAL: Diffuse weakness throughout SKIN: No rashes. Stage 2 sacral decub Assessment plan: -Aspiration and gram-negative bacterial pneumonia a bilateral initially from retained gastric contents mostly food and liquids, causing acute hypoxic respiratory failure: On presentation: Subsequent bacterial pneumonia and lung abscess sputum culture November 25: Citrobacter freundii, Pseudomonas aeruginosa. December 13: Klebsiella oxytoca, Pseudomonas aeruginosa IV meropenem-, IV Zosyn.IV ceftolozane/tazobactam, IV daptomycin, tobramycin-all discontinued Currently getting IV ciprofloxacin. , Tobramycin, Diflucan -Had became asynchronous with the ventilator; currently now on trach collar and agitated. On Precedex drip which is being weaned. -Pain, multifactorial Getting Dilaudid every 2 as needed -Breakdown of tracheostomy stoma site. Dressing in place Being followed by warehouse lead -Sepsis with septicemia from above Patient received multiple antibiotics -Right l lung abscess, pigtail catheter placed January 07, 2024. Initially about 200 cc of pus obtained. During the procedure large amount of pus poured out of the tracheostomy site when patient was rolled on the left side. Status post bronchoscopy with some lavage on 01/07/2024 -Pigtail catheter in place - lung abscess larger 1 on the right side-patient cultures are growing Pseudomonas and Klebsiella oxytoca: , Received other antibiotics. Currently on ciprofloxacin and tobramycin -Acute pulmonary edema and fluid overload from hypoalbuminemic state and fluids from IV.:: Has been getting Lasix and dialysis: Both held -Altered mentation. Possibly encephalopathy. Could be delirium.: Some improvement CT brain [December 06] nothing acute Neurology following EEG-evidence of generalized cerebral dysfunction and sporadic intermittent higher amplitude sharply contoured waves mainly bifrontal. Showing cortical irritability. Keppra was started on December 07 -Critical care poly- Pedro neuropathy: Slow to respond PT OT -Gallstones, asymptomatic -Small l bowel perforation at site of jejunostomy tube tip with balloon..: Portion of small bowel resected. On November 24. New J-tube was placed.- drainage to gravity:-Now discontinued December 19: J-tube blocked. J-tube replaced on December 20 over wire December 21: Leaking around the J-tube site. Feeding held December 23: J feeding was started yesterday evening but again started leaking increasingly around the J-tube site-feeding held again December 24: J-tube feeding has been held. Patient is currently having increased drainage from the J-tube site -Acute kidney injury. Possible ATN from hypotensive shock: Resolved Renal ultrasound unremarkable. Started on renal replacement therapy on November 28. Last hemodialysis on December 17. Being followed by an nephrology. Good urine output. -Nutrition Jejunostomy tube placed November [address] Ewing Received TPN-this was discontinued. TPN lipids restarted on December 24 -Midline abdominal incision wound dehiscence Wound VAC placed -Acute recurrent atrial fibrillation-converted to sinus rhythm Received IV amiodarone. Cardiology following -Acute hypoxic respiratory failure from aspiration pneumonia, status post ventilator assisted: Reintubated November 25. FiO2 35 PEEP of 5 Tracheostomy tube-by Dr. Zepeda on December 09 -Septic shock, recovered -Hypertension, recurrent Had received Cleviprex. Hydralazine added -Intermittent hypotension: Corrected Intermittent use of Levophed. 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 Also anemia of blood draw. Iron deficiency anemia Received total of 6 units of blood IV iron. -Severe thrombocytopenia. Would consider coagulation disorder secondary to infection., In the setting of underlying lymphoma.: Fluctuating with infection Hematology following. -Acute blood loss anemia -Sacral stage II decub ulcer Dressing in place -Hypokalemia, multiple causes -Hypoglycemia: Corrected -GERD PPI -Acute diarrhea secondary to tube feeding.: Resolved C. difficile ruled out. -Large superficial gastric antral ulceration involving the gastric antrum extending into the pylorus with gastric outlet obstruction. 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 -DNR made on January 12. Now full code with instructions on January 17 Remains off IV Precedex at this time. White blood cell count has been increasing up to 20.1 today based off the abdominal pelvis chest CT results patient is been started on IV metronidazole in conjunction with IV Cipro and infectious diseases following closely. TPN lipids continue. Surgery recommending to continue holding off using the Jtube and to not change the position. Discussed CT results ileus vs. partial obstruction; per surgery this is not a concern at this time are likely just an ileus and to continue with the suppositories and TPN feedings. Chest tube remains in place. RAYA drain remains in place. Wound vac to the midline abdomen remains in place. Continue pressure offloading and barrier cream to the sacral decub. Tracheostomy in place and remains on the trach collar. 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. Spoke to the at the bedside. Continue treatment plan. Repeat electrolytes tomorrow. The impression and plan of care has been dictated by Carol Ulrich Nurse Practitioner as directed. Dr. Jozef MD I have performed a history and physical examination and medical decision making of this patient, discussed the same with the dictator, and agree with the dictators assessment and plan as written, documented as a scribe. Based on total visit time, I have performed more than 50% of this visit. Objective - Vital Signs Vital signs: Vital Signs Temp 98.9 F 01/26/24 08:00 Pulse 87 01/26/24 12:23 Resp 34 H 01/26/24 11:00 BP 144/87 01/26/24 11:00 Pulse Ox 94 L 01/26/24 11:00 FiO2 40 01/26/24 08:40 Intake & Output 01/25/24 01/26/24 01/26/24 18:59 06:59 18:59 Intake Total 1080 1630 590 Output Total 194 1935 690 Balance -863 -305 -100 Weight 106.7 kg Intake: IV 1080 1630 590 Sodium Chloride 0.9% 1, 550 50 000 ml @ 50 mls/hr IV . Q20H [facility] Rx#:[id number] TPN 1080 1080 540 Output: Chest Tube Drainage 40 Chest Tube Right 40 Drainage 40 Right Abdomen 40 Urine 1939 1854 690 Stool 3 Other: Voiding Method Indwelling Catheter Indwelling Catheter # Voids 1 ABP, PAP, CO, CI - Last Documented Arterial Blood Pressure 173/76 - Labs CBC & Chem 7: 01/26/24 05:31 01/26/24 05:31 Labs: Abnormal Lab Results - Last 24 Hours (Table) 01/25/24 01/26/24 01/26/24 Range/Units 23:27 05:31 05:31 WBC 16.3 H (3.8-10.6) k/uL RBC 2.40 L (4.30-5.90) m/uL Hgb 7.2 L (13.0-17.5) gm/dL Hct 22.0 L (39.0-53.0) % RDW 17.0 H (11.5-15.5) % Neutrophils # 11.0 H (1.3-7.7) k/uL Monocytes # 1.1 H (0-1.0) k/uL Sodium 130 L (137-145) mmol/L Potassium 3.4 L (3.5-5.1) mmol/L Glucose 125 H (74-99) mg/dL POC Glucose (mg/dL) 139 H (70-110) mg/dL Calcium 7.1 L (8.4-10.2) mg/dL 01/26/24 01/26/24 Range/Units 06:03 11:36 WBC (3.8-10.6) k/uL RBC (4.30-5.90) m/uL Hgb (13.0-17.5) gm/dL Hct (39.0-53.0) % RDW (11.5-15.5) % Neutrophils # (1.3-7.7) k/uL Monocytes # (0-1.0) k/uL Sodium (137-145) mmol/L Potassium (3.5-5.1) mmol/L Glucose (74-99) mg/dL POC Glucose (mg/dL) 148 H 120 H (70-110) mg/dL Calcium (8.4-10.2) mg/dL Assessment and Plan Time with Patient: Less than 30
[2024-01-26 18:06] LABS: Glucose,Whole Blood 141 mg/dL (70-110)
--- NOTE | 2024-01-26 20:45 | P.PN ---
Subjective Progress Note Date: 01/26/24 Principal diagnosis: Reason for follow-up is pneumonia and bacteremia This is a telehealth visit Patient is 73-year-old with male initial presentation to the hospital on 11/12/2023 after the patient did have aspiration while undergoing elective endoscopy, diagnosed with a non-Hodgkin lymphoma subsequently did have exploratory laparotomy for perforated small bowel, abdominal washout and feeding jejunostomy tube patient did require dialysis catheter placement for dialysis during this hospital stay which was subsequently discontinued, and tracheostomy for respiratory failure. On today's evaluation that is 01/26/2024, the patient continues to be afebrile, the patient is on trach collar and breathing comfortably no significant cough chest pain abdominal pain or any diarrhea has been reported. Patient white count is down to 16.3, creatinine 0.66 Objective - Vital Signs Vital signs: Vital Signs Temp 97.7 F 01/26/24 04:00 Pulse 89 01/26/24 09:11 Resp 28 H 01/26/24 07:00 BP 142/94 01/26/24 07:00 Pulse Ox 95 01/26/24 08:40 FiO2 40 01/26/24 08:40 Intake & Output 01/25/24 01/26/24 01/26/24 18:59 06:59 18:59 Intake Total 1080 1630 140 Output Total 1943 1935 140 Balance -863 -305 0 Weight 106.7 kg Intake: IV 1080 1630 140 Sodium Chloride 0.9% 1, 550 50 000 ml @ 50 mls/hr IV . Q20H [facility] Rx#:[id number] TPN 1080 1080 90 Output: Chest Tube Drainage 40 Chest Tube Right 40 Drainage 40 Right Abdomen 40 Urine 1940 1855 140 Stool 3 Other: Voiding Method Indwelling Catheter Indwelling Catheter # Voids 1 ABP, PAP, CO, CI - Last Documented Arterial Blood Pressure 173/76 - Exam Elderly male up in the bed in no distress No tachypnea or accessory muscle respiration Unlabored breathing - Labs CBC & Chem 7: 01/26/24 05:31 01/26/24 05:31 Labs: Abnormal Lab Results - Last 24 Hours (Table) 01/25/24 01/25/24 01/26/24 Range/Units 11:54 23:27 05:31 WBC 16.3 H (3.8-10.6) k/uL RBC 2.40 L (4.30-5.90) m/uL Hgb 7.2 L (13.0-17.5) gm/dL Hct 22.0 L (39.0-53.0) % RDW 17.0 H (11.5-15.5) % Neutrophils # 11.0 H (1.3-7.7) k/uL Monocytes # 1.1 H (0-1.0) k/uL Sodium (137-145) mmol/L Potassium (3.5-5.1) mmol/L Glucose (74-99) mg/dL POC Glucose (mg/dL) 140 H 139 H (70-110) mg/dL Calcium (8.4-10.2) mg/dL 01/26/24 01/26/24 Range/Units 05:31 06:03 WBC (3.8-10.6) k/uL RBC (4.30-5.90) m/uL Hgb (13.0-17.5) gm/dL Hct (39.0-53.0) % RDW (11.5-15.5) % Neutrophils # (1.3-7.7) k/uL Monocytes # (0-1.0) k/uL Sodium 130 L (137-145) mmol/L Potassium 3.4 L (3.5-5.1) mmol/L Glucose 125 H (74-99) mg/dL POC Glucose (mg/dL) 148 H (70-110) mg/dL Calcium 7.1 L (8.4-10.2) mg/dL Assessment and Plan (1) Sepsis Current Visit: Yes Status: Acute Code(s): A41.9 - SEPSIS, UNSPECIFIED ORGANISM SNOMED Code(s): 71798689 (2) Pneumonia Current Visit: Yes Status: Acute Code(s): J18.9 - PNEUMONIA, UNSPECIFIED ORGANISM SNOMED Code(s): 861835660 (3) Bacteremia Current Visit: Yes Status: Acute Code(s): R78.81 - BACTEREMIA SNOMED Code(s): 7456486 Plan: 1patient with complicated pneumonia and lung abscess on the CT status post drainage catheter placement by interventional radiology subsequently did have purulent pleural fluid which has been cultured did have a chest tube and is growing Pseudomonas with slightly different sensitivity from the sputum Pseudomonas aeruginosa. 2-patient also have evidence of retro vesicular abscess on the CT abdominal pelvis, this has been discussed with the surgical team on the case in person however mention patient would not be able to tolerate any further surgery. 3patient CT chest also showed evidence of pulmonary abscess status post chest tube placement, pleural fluid cultures are growing Pseudomonas aeruginosa that is sensitive to Zerbaxa as well as tobramycin and Cipro and also growing Alejandra albicans 4patient did have a follow-up CT of the chest abdominal pelvis on 01/24/2024 reporting overall decrease in the hydropneumothorax on the right side and now concerning for acute diverticulitis with surrounding phlegmon and the patient currently covered with the Cipro and Flagyl to continue white count is trending down, family question answered Dictation was produced using [employer] dictation software. please excuse any grammatical, word or spelling errors. Time with Patient: Less than 30
[2024-01-27 00:26] LABS: Glucose,Whole Blood 156 mg/dL (70-110)
[2024-01-27 06:09] LABS: Glucose,Whole Blood 146 mg/dL (70-110)
[2024-01-27 06:22] LABS: African American GFR (CKD) >90 (>60 ml/min/1.73 sqM); Anion Gap 4 mmol/L; Anisocytosis Slight; Basophils % (A) 0 %; Blood Urea Nitrogen 19 mg/dL (9-20); Calcium 7.2 mg/dL (8.4-10.2); Carbon Dioxide 24 mmol/L (22-30); Chloride 104 mmol/L (98-107); Eosinophils # (A) 0.3 k/uL (0-0.7); Eosinophils % (A) 2 %; Glucose 126 mg/dL (74-99); HCT 23.9 % (39.0-53.0); HGB 7.8 gm/dL (13.0-17.5); Hypochromasia Slight; Lymphocytes # (A) 3.1 k/uL (1.0-4.8); Lymphocytes % (A) 21 %; MCH 30.2 pg (25.0-35.0); MCHC 32.6 g/dL (31.0-37.0); MCV 92.7 fL (80.0-100.0); Magnesium 1.9 mg/dL (1.6-2.3); Mean Platelet Volume 7.1; Monocytes # (A) 1.1 k/uL (0-1.0); Monocytes % (A) 7 %; Neutrophils % (A) 68 %; Non-African American GFR(CKD) >90 (>60 ml/min/1.73 sqM); Phosphorus 3.3 mg/dL (2.5-4.5); Platelet Count 376 k/uL (150-450); RBC 2.58 m/uL (4.30-5.90); RDW 16.6 % (11.5-15.5); Sodium 132 mmol/L (137-145); WBC 14.7 k/uL (3.8-10.6)
[2024-01-27 06:53] LABS: Potassium 3.9 mmol/L (3.5-5.1)
--- NOTE | 2024-01-27 07:50 | P.PN ---
Progress Note - Text Progress Note Date: 01/27/24 HISTORY OF PRESENT ILLNESS: No acute events overnight. Recent CT-AP shows ileus and diverticulitis with phlegmon. Patient is being followed by ID> PHYSICAL EXAM: VITAL SIGNS: Reviewed. GENERAL: frail, weak HEENT: Tracheostomy site clean dry and intact ABDOMEN: Soft. Nondistended. Midline incision with wound VAC in place and intact with granulation tissue. RAYA drain in place. RAYA tube with decrease in surrounding drainage ASSESSMENT: 1. 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 Status post J-tube placement and revision for small bowel obstruction 2. Abdominal wound dehiscence status post wound VAC placement 3. Status post tracheostomy PLAN: -At this time, patients J tube site fistula is mature and it is of no harm to the patient if the J tube has been pulled back as the patient has not been getting any tube feeds. Please do not adjust J tube. This was explained to the patient's family on several occasions. Patients nutritional support will be from TPN. -Wound VAC scheduled changes. -Continue supportive care -Continue TPN for nutrition support Dick Ewing DO [facility] [phone]
[2024-01-27] MEDS: MAGNESIUM SULFATE-D5W PMX 1 GM in DEXTROSE/WATER 1 100ML.BAG IVPB ONE (09:00)
[2024-01-27] MEDS: POTASSIUM CHLORIDE 20 MEQ in WATER FOR INJECTION 1 100ML.BAG IVPB ONE (10:05)
[2024-01-27] MEDS ORDERED: BENZOCAINE SPRAY 1 CAN MUCOUS MEM PRN (10:30)
--- NOTE | 2024-01-27 11:36 | P.PN ---
Subjective Progress Note Date: 01/27/24 Principal diagnosis: Reason for follow-up is pneumonia and diverticulitis Patient is 73-year-old with male initial presentation to the hospital on 11/12/2023 after the patient did have aspiration while undergoing elective endoscopy, diagnosed with a non-Hodgkin lymphoma subsequently did have exploratory laparotomy for perforated small bowel, abdominal washout and feeding jejunostomy tube patient did require dialysis catheter placement for dialysis during this hospital stay which was subsequently discontinued, and tracheostomy for respiratory failure. On today's evaluation that is 01/27/2024, Patient is afebrile patient is currently on trach collar and breathing comfortably did have a cough but no worsening or any sputum production no vomiting or diarrhea reported remains to be on TPN. The patient white count is down to 14.7 creatinine 0.57 Objective - Vital Signs Vital signs: Vital Signs Temp 98.3 F 01/27/24 08:00 Pulse 92 01/27/24 11:28 Resp 25 H 01/27/24 08:00 BP 165/84 01/27/24 08:00 Pulse Ox 95 01/27/24 08:11 FiO2 40 01/27/24 08:11 Intake & Output 01/26/24 01/27/24 01/27/24 18:59 06:59 18:59 Intake Total 590 2840 Output Total 690 2110 Balance -100 730 Intake: IV 590 2840 0.9 Normal Saline @ KVO 800 Ciprofloxacin/Dextrose 400 Pmx 400 mg In Dextrose/ Water 1 200ml.bag @ 200 mls/hr IVPB Q8H [facility] Rx#: [id number] Sodium Chloride 0.9% 1, 50 000 ml @ 50 mls/hr IV . Q20H [facility] Rx#:[id number] TPN 540 1440 metroNIDAZOLE-NS PMX 500 200 mg In Saline 1 100ml.bag @ 100 mls/hr IVPB Q8H [facility] Rx#:[id number] Output: Chest Tube Drainage 10 Chest Tube Right 10 Urine 690 2100 Other: Voiding Method Indwelling Catheter Indwelling Catheter ABP, PAP, CO, CI - Last Documented Arterial Blood Pressure 173/76 - Exam GENERAL DESCRIPTION: An elderly male up in bed in no distress RESPIRATORY SYSTEM: Unlabored breathing , coarse breath sounds anteriorly HEART: S1 S2 regular rate and rhythm , ABDOMEN: Soft , no tenderness EXTREMITIES: No edema feet - Labs CBC & Chem 7: 01/27/24 05:26 01/27/24 05:26 Labs: Abnormal Lab Results - Last 24 Hours (Table) 01/26/24 01/26/24 01/27/24 Range/Units 11:36 18:04 00:24 WBC (3.8-10.6) k/uL RBC (4.30-5.90) m/uL Hgb (13.0-17.5) gm/dL Hct (39.0-53.0) % RDW (11.5-15.5) % Neutrophils # (1.3-7.7) k/uL Monocytes # (0-1.0) k/uL Sodium (137-145) mmol/L Creatinine (0.66-1.25) mg/dL Glucose (74-99) mg/dL POC Glucose (mg/dL) 120 H 141 H 156 H (70-110) mg/dL Calcium (8.4-10.2) mg/dL 01/27/24 01/27/24 01/27/24 Range/Units 05:26 05:26 06:07 WBC 14.7 H (3.8-10.6) k/uL RBC 2.58 L (4.30-5.90) m/uL Hgb 7.8 L (13.0-17.5) gm/dL Hct 23.9 L (39.0-53.0) % RDW 16.6 H (11.5-15.5) % Neutrophils # 10.0 H (1.3-7.7) k/uL Monocytes # 1.1 H (0-1.0) k/uL Sodium 132 L (137-145) mmol/L Creatinine 0.57 L (0.66-1.25) mg/dL Glucose 126 H (74-99) mg/dL POC Glucose (mg/dL) 146 H (70-110) mg/dL Calcium 7.2 L (8.4-10.2) mg/dL Assessment and Plan (1) Sepsis Current Visit: Yes Status: Acute Code(s): A41.9 - SEPSIS, UNSPECIFIED ORGANISM SNOMED Code(s): 47214369 (2) Pneumonia Current Visit: Yes Status: Acute Code(s): J18.9 - PNEUMONIA, UNSPECIFIED ORGANISM SNOMED Code(s): 614618658 (3) Bacteremia Current Visit: Yes Status: Acute Code(s): R78.81 - BACTEREMIA SNOMED Code(s): 3641653 Plan: 1patient with complicated pneumonia and lung abscess on the CT status post drainage catheter placement by interventional radiology subsequently did have purulent pleural fluid which has been cultured did have a chest tube and is growing Pseudomonas with slightly different sensitivity from the sputum Pseudomo jose antonio aeruginosa. 2-patient also have evidence of retro vesicular abscess on the CT abdominal pelvis, this has been discussed with the surgical team on the case in person however mention patient would not be able to tolerate any further surgery. 3patient CT chest also showed evidence of pulmonary abscess status post chest tube placement, pleural fluid cultures are growing Pseudomonas aeruginosa that is sensitive to Zerbaxa as well as tobramycin and Cipro and also growing Alejandra albicans for the patient has received adequate Cipro and Diflucan 4patient did have a follow-up CT of the chest abdominal pelvis on 01/24/2024 reporting overall decrease in the hydropneumothorax on the right side and now concerning for acute diverticulitis with surrounding phlegmon for the patient is currently being treated with Cipro and Flagyl, the patient white count is trending down, family question answered Dictation was produced using [employer] dictation software. please excuse any grammatical, word or spelling errors. Time with Patient: Less than 30
--- NOTE | 2024-01-27 11:55 | CDI ---
Documentation Clarification Form Date: 01/27/2024 10:32:23 AM From: Herlinda Ventura RN CCDS Phone: [phone] Admit Date: 11/12/2023 09:12:00 AM Patient Name: Salbador Lawton Visit Number: [id number] Discharge Date: ATTENTION: The Clinical Documentation Specialists (CDI) and [facility] Coding Staff appreciate your assistance in clarifying documentation. Please respond to the clarification below the line at the bottom and electronically sign. The CDI & [facility] Coding staff will review the response and follow-up if needed. Please note: Queries are made part of the Legal Health Record. If you have any questions, please contact the author of this message via ITS. Doctor: Dick Ewing Abdominal wound dehiscence is documented 12/13, Pulmonary note, and patient had [insert procedure, date]. Additional clarification is requested regarding the relationship, if any, that exists between the diagnosis and the procedure. Patients Admitting Diagnosis: Small Bowel Obstruction Post-Operative Diagnosis: Perforated Small Bowel Procedure performed: Exploratory Laparotomy. Abdominal Washout. Small bowel resection. Wizel Feeding Jejunostomy History/Risk Factors: 73 year old male underwent EGD and was found to have ulcerated around the antrum and obstruction to the pylorus. A lot of retained food was found. Patient aspirated. Had to be intubated and brought to the ICU. Clinical Indicators: 12/13 Pulmonology: The patient had a fever and will be re-cultured. In addition, the midline incision in the abdomen, shows some evidence of purulence, and will have surgeon, take a look at that. Currently the patient is not on any antibiotics. 12/13 Surgery: Will continue to monitor midline wound dehiscence. Fascia is intact 12/18 Wound care consult: Non healing ulceration with muscle involvement other site. #2 Surgical wound dehiscence. 12/13 Blood Culture Grain Stain: Staphylococcus epidermidis Molecular ID 12/13 Abdomen Anaerobic Culture: Bacteroides thetaiotaomicron Treatment: 11/11 11/26 Zosyn IVPB Q8H; 11/23 0.9NS IVPB 1L Bolus x 1; 11/23 Tylenol IVPB Q6H x 4 bags, 11/24 Vancomycin IVPB x 1; 11/25 Tylenol IVPB x 1; 11/26 Vancomycin IVPB x 1; 11/29 12/09 Meropenem IVPB HS Consults: See above What relationship, if any, exists between the diagnosis of surgical wound dehiscence and the procedure: [ ] Surgical wound dehiscence is a complication of surgical procedure [ ] Surgical wound dehiscence is an expected outcome of the surgical procedure [ ] Surgical wound dehiscence is related to patients co-morbid condition(s) of suspected Infection at the, Severe malnutrition , Non Hodgkins lymphoma and Sepsis & not a complication of the procedure [ ] [insert dx] has been ruled out [ ] Other please specify ____ [ ] Unable to determine (Template Last Revised: May 2020) MTDD
[2024-01-27 12:03] LABS: Glucose,Whole Blood 142 mg/dL (70-110)
--- NOTE | 2024-01-27 14:29 | P.PN ---
Subjective Progress Note Date: 01/27/24 On today's evaluation of 01/27/2024, the patient remains on a trach collar airfit 40% with a flow of 10 L. No significant respiratory distress. Awake and alert and communicating. Profound weakness although is able to move all 4 extremities with essentially profound weakness in the motor function is 2 out of 5 in all 4 extremities. The patient has a right-sided pigtail catheter. There is ongoing episodic air leak and the output from the right sided chest has been only 10 cc over the past 24 hours. The follow-up chest x-ray showed interval improvement in the right-sided pleural effusion and there is residual consolidation bilaterally as the patient is being treated for pseudomonal pneumonia. Sputum samples from 01/07/2024 was again positive for Pseudomonas aeruginosa and the patient remains on IV ciprofloxacin. The patient remains NPO. The patient remains on TPN for nutritional support and TPN is running at a rate of 90 cc an hour. He has an adequate urine output. The most recent CAT scan of the abdomen and pelvis from 01/25/2024 showed interval development of a dilated small bowel loop in the mid abdomen consistent with either focal ileus versus a partial obstruction. There is also findings suggestive of acute diverticulitis of the sigmoid colon with small pericolic phlegmon/abscess and this has been decreasing in size measuring previously 3.4 cm in size and currently measuring 3 cm in size. Continues to have moderate anasarca. The patient also has decreased right-sided hydropneumothorax on the right side and persistent bilateral pulmonary consolidation. Overall CAT scan findings of the chest have improved. Her white cell count is 14.7. Hemoglobin 7.8. Platelet count of 376. BUN is 19 with a creatinine of 0.5. Sodium is at 132 and a potassium level is at 3.9. The magnesium is at 1.9. Phosphorus is 3.3. Calcium is at 7.2. The patient is having some ongoing leaks around the J-tube. He is on TPN for nutritional support and remains NPO. He is on IV Flagyl in addition. Insulin is in the form of sliding scale coverage. Objective - Vital Signs Vital signs: Vital Signs Temp 98.3 F 01/27/24 08:00 Pulse 94 01/27/24 08:30 Resp 25 H 01/27/24 08:00 BP 165/84 01/27/24 08:00 Pulse Ox 95 01/27/24 08:11 FiO2 40 01/27/24 08:11 Intake & Output 01/26/24 01/27/24 01/27/24 18:59 06:59 18:59 Intake Total 590 2840 Output Total 690 2110 Balance -100 730 Intake: IV 590 2840 0.9 Normal Saline @ KVO 800 Ciprofloxacin/Dextrose 400 Pmx 400 mg In Dextrose/ Water 1 200ml.bag @ 200 mls/hr IVPB Q8H NIRMAL Rx#: [id number] Sodium Chloride 0.9% 1, 50 000 ml @ 50 mls/hr IV . Q20H NIRMAL Rx#:[id number] TPN 540 1440 metroNIDAZOLE-NS PMX 500 200 mg In Saline 1 100ml.bag @ 100 mls/hr IVPB Q8H NIRMAL Rx#:[id number] Output: Chest Tube Drainage 10 Chest Tube Right 10 Urine 690 2100 Other: Voiding Method Indwelling Catheter Indwelling Catheter ABP, PAP, CO, CI - Last Documented Arterial Blood Pressure 173/76 - Exam Awake and alert can communicating and the patient has a tracheostomy collar at 40% FiO2, 10 L. HEENT examination is grossly unremarkable. Mucous membranes are moist. No oral lesions.. The patient also has a tracheostomy tube in place and the patient has a #8 Shiley tracheostomy tube. Cardiac exam revealed the PMI to be normally situated and sized. The rhythm was regular and no extrasystoles were noted during several minutes of auscultation. The first and second heart sounds were normal and physiologic splitting of the second heart sound was noted. There were no murmurs, rubs, clicks, or gallops. The patient is in sinus tachycardia. Lungs reveal mild scattered rhonchi. No wheezes or crackles. Breath sounds equal. Diminished breath sound lung base bilaterally. Pigtail catheter in the right chest posteriorly located with positive output and positive airleak on the Pleur-evac. Abdomen distended without bowel sounds. J-tube is noted. Mid abdominal wound is covered with a wound VAC. Output from the wound VAC is minimal at this point in time. And underlying wound is rather clean. J tube remains in place. Some leaks around the tube noted. Extremities are intact. No cyanosis clubbing trace edema lower extremities bilaterally Skin is without rash or lesion. The wound at the [facility] site is dry and the area has been sutured and the site is clean for now. Neurologic examination is brief but nonfocal. Currently, the patient is awake and communicating. Motor function is weak in all 4 extremities, 2/5 with diminished reflexes. - Labs CBC & Chem 7: 01/27/24 05:26 01/27/24 05:26 Labs: Abnormal Lab Results - Last 24 Hours (Table) 01/26/24 01/26/24 01/27/24 Range/Units 11:36 18:04 00:24 WBC (3.8-10.6) k/uL RBC (4.30-5.90) m/uL Hgb (13.0-17.5) gm/dL Hct (39.0-53.0) % RDW (11.5-15.5) % Neutrophils # (1.3-7.7) k/uL Monocytes # (0-1.0) k/uL Sodium (137-145) mmol/L Creatinine (0.66-1.25) mg/dL Glucose (74-99) mg/dL POC Glucose (mg/dL) 120 H 141 H 156 H (70-110) mg/dL Calcium (8.4-10.2) mg/dL 01/27/24 01/27/24 01/27/24 Range/Units 05:26 05:26 06:07 WBC 14.7 H (3.8-10.6) k/uL RBC 2.58 L (4.30-5.90) m/uL Hgb 7.8 L (13.0-17.5) gm/dL Hct 23.9 L (39.0-53.0) % RDW 16.6 H (11.5-15.5) % Neutrophils # 10.0 H (1.3-7.7) k/uL Monocytes # 1.1 H (0-1.0) k/uL Sodium 132 L (137-145) mmol/L Creatinine 0.57 L (0.66-1.25) mg/dL Glucose 126 H (74-99) mg/dL POC Glucose (mg/dL) 146 H (70-110) mg/dL Calcium 7.2 L (8.4-10.2) mg/dL Assessment and Plan Plan: Acute hypoxemic respiratory failure with failure to wean from mechanical ventilation, S/P tracheostomy on December 10, 2023. The patient has bilateral pneumonia with a cavitary infiltrate in the right upper lobe, secondary to Pseudomonas aeruginosa and Citrobacter. The patient had a pigtail catheter inserted with drainage of the right lung abscess. The bronchial washing is positive for Pseudomonas aeruginosa, quinolone sensitive and the cultures from the pigtail catheter/lung abscess was also positive for Pseudomonas aeruginosa and follow-up CAT scan of the chest was done on 01/25/2024 showed improvement the right-sided hydropneumothorax and the patient does have residual infiltrates and patchy consolidations bilaterally. There is persistent air leak. Output from the pigtail catheter is minimal at this point in time. The patient is currently on a trach collar, off the mechanical ventilator with an FiO2 of 40% and a flow of 10 L. Right apical pneumothorax with ongoing airleak through the pigtail catheter, suspect a bronchopleural fistula in addition. There is ongoing airleak and the chest CAT scan from 01/25/2024 shows improvement in the right-sided hydropneumothorax. Output from the pigtail catheter is minimal at this point in time. Hospital-acquired right lung pseudomonalpneumonia. Patient is currently on IV Cipro . Cough, subsided, continues to have respiratory secretions. Rule out underlying bronchopleural fistula. Bronchoscopy was completed. 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 The patient remains n.p.o. Small bowel perforation with abdominal contamination. The patient is status post expiratory laparotomy and small bowel resection and insertion of another jejunostomy tube. The patient jejunostomy is not functional, awaiting further recommendations from general surgery regarding the functionality of this tube and our ability to restart enteral feeding for nutritional support. Peritonitis secondary to above, recovered. Questionable diverticulitis of the sigmoid level with a phlegmon/abscess formation. This is also improving based on the most recent CAT scan of the abdomen and pelvis done on 01/25/2024. Septic shock secondary to above, the patient is currently off pressors Atrial fibrillation with rapid medical response, currently back into normal sinus rhythm . 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 Malfunctioning of the J-tube, currently on TPN for nutritional support Hypertension Plan Keep the patient on 40% trach collar Aggressive pulmonary toileting Keep the pigtail catheter in place and the patient has persistent air leak Most recent CAT scan of the chest from 01/25/2024 shows improving right-sided hydropneumothorax Cultures from the right lung abscess and sputum was sent and the sputum sample was positive for Pseudomonas aeruginosa, quinolone sensitive. Continue IV ciprofloxacin Continue IV Flagyl The J-tube is nonfunctional and the patient is on TPN for nutritional support, general surgery is on the case IV fluids to KVO Monitor fever pattern General Surgery is on the case regarding abdominal wound Condition remains extremely critical with poor prognosis based on the above Will continue to follow this patient along with the rest of the consultants. Evaluation was done more than 30 minutes. I had a lengthy discussion with the . Explained to them the poor prognosis. Time with Patient: Greater than 30
--- NOTE | 2024-01-27 14:41 | P.PN ---
Subjective Progress Note Date: 01/27/24 January 22, 2024: ICU. Patient was on CPAP this morning. Plan was to take him to trach only this afternoon. Getting IV Precedex. Awake. Moves his head to command. Was able to move his right arm. Wound VAC remains in place. Right chest tube/pigtail catheter in place. Some air leak. Minimal output from the right RAYA drain. Secretions persist through the left J-tube site. at the bedside. Spoke to the social service technician David. Looking into long-term placement. 01/23/24 Patient is evaluated in the ICU at the bedside. Feels anxious today, precedex is being weaned. He is awake alert. He is edematous. Abdominal wound vac in place. Right chest tube/pigtail in place. 55 ML of drainage overnight. Right sided RAYA drain. J tube in place. On TPN. He is pending approval for [facility] vs[facility]. Blood work today reveals a sodium level of 131. Continues on IV Ciprofloxacin/ IV fluconazole. 01/24/2024 Patient remains in the intensive care unit as remains at the bedside. He was weaned off the Precedex today did receive a dose of Ativan this morning however his mood has much improved. Abdominal wound VAC in place with evidence of purulent drainage in the canister. He has had 15 mL of drainage overnight from the right sided chest tube. J-tube remains in place. He continues on TPN. He continues on IV ciprofloxacin and IV fluconazole with plans for repeat abdominal pelvis CT today by infectious disease and consider discontinuation of antibiotics afterwards. Sodium level today is 130. Still pending approval for discharge to LTAC versus [facility]. 01/25/2024 Patient remains in the intensive care unit he continues off IV Precedex at this time. Continues with TPN. Repeat chest abdomen pelvis CT completed yesterday which shows a decrease seen in the hydropneumothorax within the right lung base with drainage catheter there is no change in the bibasilar infiltrates and small left effusion. There is interval development of a dilated small bowel loop in the mid abdomen consistent with either a focal ileus or partial obstruction. There are findings suggestive of acute diverticulitis of the sigmoid colon with a small pericolic phlegmon abscess however is decreasing in the interval from compared in the prior study from 3.4 cm to 3 cm. There is moderate anasarca and the peritoneal dialysis catheter and small bowel drainage tube unchanged in position. Blood work today reveals a white blood cell count of 20.1, hemoglobin 8.3, sodium 131, BUN of 21, creatinine 0.66, magnesium 1.7. He is on IV Cipro. IV Flagyl was added today by infectious disease. Was made a full code at request of family. 01/26/2024 Patient remains in the ICU. More awake alert and oriented today. He continues on the trach collar. Sounds less congested. Continues on IV cipro and IV flagyl. White blood cell count better today at 16.3. Hgb 7.2. Sodium 130, potassium 3.4. Continues on TPN. 01/27/2024 Patient is seen in follow-up continues to be in the ICU with multiple con sultations following. Family at the bedside and patient is more awake although continues with bronchial congestion and frequent suctioning with the trach collar. Patient remains off Precedex. Patient continues on antibiotics for possible lung abscess that was positive for Pseudomonas with a persistent air leak. Minimal output of the pigtail catheter noted. FiO2 is 40% trach collar maintained on 10 L oxygen. Patient continues on TPN and will adjust accordingly per dietary and pharmacy. Overall prognosis remains extremely poor. Patient remains full code. Per nursing staff patient was denied from [facility] with case management/social work following. REVIEW OF SYSTEMS: CONSTITUTIONAL: No fever, no malaise, reports fatigue HEENT: No recent visual problems or hearing problems. Denied any sore throat. CARDIOVASCULAR: No chest pain, orthopnea, PND, no palpitations, no syncope. PULMONARY: Reports shortness of breath, no cough, no hemoptysis. GASTROINTESTINAL: No diarrhea, no nausea, no vomiting, no abdominal pain. NEUROLOGICAL: No headaches, no weakness, no numbness. Anxious. PHYSICAL EXAMINATION: GENERAL: The patient is alert and oriented x2, not in any acute distress. Well developed, ill-appearing, elderly appearing. Trach Collar with an FiO2 of 40%, 10 L O2. HEENT: Pupils are round and equally reacting to light. EOMI. No scleral icterus. No conjunctival pallor. Normocephalic, atraumatic. No pharyngeal erythema. No thyromegaly. CARDIOVASCULAR: S1 and S2 present. No murmurs, rubs, or gallops. PULMONARY: Chest is clear to auscultation, no wheezing or crackles. Diminished. ABDOMEN: Soft, nontender, nondistended, normoactive bowel sounds. No palpable o rganomegaly. MUSCULOSKELETAL: No joint swelling or deformity. EXTREMITIES: No cyanosis, clubbing, or pedal edema. Peripheral edema 1+ NEUROLOGICAL: Diffuse weakness throughout SKIN: No rashes. Stage 2 sacral decub Assessment plan: -Aspiration and gram-negative bacterial pneumonia a bilateral initially from retained gastric contents mostly food and liquids, causing acute hypoxic respiratory failure: On presentation: Subsequent bacterial pneumonia and lung abscess sputum culture November 25: C itrobacter freundii, Pseudomonas aeruginosa. December 13: Klebsiella oxytoca, Pseudomonas aeruginosa IV meropenem-, IV Zosyn.IV ceftolozane/tazobactam, IV daptomycin, tobramycin-all discontinued Currently getting IV ciprofloxacin. , Tobramycin, Diflucan -Had became asynchronous with the ventilator; currently remains on trach collar and off Precedex, FiO2 is 40%, 10 L oxygen -Pain, multifactorial Getting Dilaudid every 2 as needed -Breakdown of tracheostomy stoma site. Dressing in place Being followed by drug safety physician -Sepsis with septicemia from above Patient received multiple antibiotics -Right l lung abscess, pigtail catheter placed January 07, 2024. Initially about 200 cc of pus obtained. During the procedure large amount of pus poured out of the tracheostomy site when patient was rolled on the left side. Status post bronchoscopy with some lavage on 01/07/2024 -Pigtail catheter in place, minimal output - lung abscess larger 1 on the right side-patient cultures are growing Pseu domonas and Klebsiella oxytoca: , Received other antibiotics. Currently on ciprofloxacin and tobramycin with infectious disease following -Acute pulmonary edema and fluid overload from hypoalbuminemic state and fluids from IV.:: Has been getting Lasix and dialysis: Both held -Altered mentation. Possibly encephalopathy. Could be delirium.: Some improvement CT brain [December 06] nothing acute Neurology following EEG-evidence of generalized cerebral dysfunction and sporadic intermittent high er amplitude sharply contoured waves mainly bifrontal. Showing cortical irritability. Keppra was started on December 07 -Critical care poly- Pedro neuropathy: Slow to respond PT OT -Gallstones, asymptomatic -Small l bowel perforation at site of jejunostomy tube tip with balloon..: Portion of small bowel resected. On November 24. New J-tube was placed.- drainage to gravity:-Now discontinued December 19: J-tube blocked. J-tube replaced on December 20 over wire December 21: Leaking around the J-tube site. Feeding held December 23: J feeding was started yesterday evening but again started leaking increasingly around the J-tube site-feeding held again December 24: J-tube feeding has been held. Patient is currently having increased drainage from the J-tube site and patient is maintained on only TPN -Acute kidney injury. Possible ATN from hypotensive shock: Resolved Renal ultrasound unremarkable. Started on renal replacement therapy on November 28. Last hemodialysis on December 17. Being followed by an nephrology. Good urine output. -Nutrition Jejunostomy tube placed November [address] Ewing, nonfunctioning Received TPN-currently maintained on TPN TPN lipids restarted on January 24 -Midline abdominal incision wound dehiscence Wound VAC placed -Acute recurrent atrial fibrillation-converted to sinus rhythm Received IV amiodarone. Cardiology following -Acute hypoxic respiratory failure from aspiration pneumonia, status post ventilator assisted: Reintubated November 25. FiO2 35 PEEP of 5 Tracheostomy tube-by Dr. Ewing on December 09 -Septic shock, recovered -Hypertension, recurrent Had received Cleviprex. Hydralazine added -Intermittent hypotension: Corrected Intermittent use of Levophed. 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 Also anemia of blood draw. Iron deficiency anemia Received total of 6 units of blood IV iron. -Severe thrombocytopenia. Would consider coagulation disorder secondary to infection., In the setting of underlying lymphoma.: Fluctuating with infection Hematology following. -Acute blood loss anemia -Sacral stage II decub ulcer Dressing in place -Hypokalemia, multiple causes -Hypoglycemia: Corrected -GERD PPI -Acute diarrhea secondary to tube feeding.: Resolved C. difficile ruled out. -Large superficial gastric antral ulceration involving the gastric antrum extending into the pylorus with gastric outlet obstruction. 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 -DNR made on January 12. Now full code with instructions on January 17 Remains off IV Precedex at this time. White blood cell count has been increasing up to 20.1 today based off the abdominal pelvis chest CT results patient is been started on IV metronidazole in conjunction with IV Cipro and infectious diseases following closely. TPN lipids continue. Surgery recommen ding to continue holding off using the Jtube and to not change the position. Discussed CT results ileus vs. partial obstruction; per surgery this is not a concern at this time are likely just an ileus and to continue with the suppositories and TPN feedings. Chest tube remains in place. RAYA drain remains in place. Wound vac to the midline abdomen remains in place. Continue pressure offloading and barrier cream to the sacral decub. Tracheostomy in place and remains on the trach collar. 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 [facility]. Spoke to the at the bedside. Continue treatment plan. Patient was denied going to [facility] and per nursing staff and case management/social work, no safe airport planner excepting ECF or facility at this time. Overall prognosis is extremely poor and guarded at this time The impression and plan of care has been dictated by Dorita Saldivar, Nurse Practitioner as directed. Dr. Jozef MD I have performed a history and physical examination and medical decision making of this patient, discussed the same with the dictator, and agree with the dictators assessment and plan as written, documented as a scribe. Based on total visit time, I have performed more than 50% of this visit. Objective - Vital Signs Vital signs: Vital Signs Temp 98.2 F 01/27/24 04:00 Pulse 96 01/27/24 08:11 Resp 33 H 01/27/24 04:00 BP 145/82 01/27/24 04:00 Pulse Ox 95 01/27/24 08:11 FiO2 40 01/27/24 08:11 Intake & Output 01/26/24 01/27/24 01/27/24 18:59 06:59 18:59 Intake Total 590 2840 Output Total 690 2110 Balance -100 730 Intake: IV 590 2840 0.9 Normal Saline @ KVO 800 Ciprofloxacin/Dextrose 400 Pmx 400 mg In Dextrose/ Water 1 200ml.bag @ 200 mls/hr IVPB Q8H [facility] Rx#: [id number] Sodium Chloride 0.9% 1, 50 000 ml @ 50 mls/hr IV . Q20H [facility] Rx#:[id number] TPN 540 1440 metroNIDAZOLE-NS PMX 500 200 mg In Saline 1 100ml.bag @ 100 mls/hr IVPB Q8H [facility] Rx#:[id number] Output: Chest Tube Drainage 10 Chest Tube Right 10 Urine 690 2100 Other: Voiding Method Indwelling Catheter Indwelling Catheter ABP, PAP, CO, CI - Last Documented Arterial Blood Pressure 173/76 - Labs CBC & Chem 7: 01/27/24 05:26 01/27/24 05:26 Labs: Abnormal Lab Results - Last 24 Hours (Table) 01/26/24 01/26/24 01/27/24 Range/Units 11:36 18:04 00:24 WBC (3.8-10.6) k/uL RBC (4.30-5.90) m/uL Hgb (13.0-17.5) gm/dL Hct (39.0-53.0) % RDW (11.5-15.5) % Neutrophils # (1.3-7.7) k/uL Monocytes # (0-1.0) k/uL Sodium (137-145) mmol/L Creatinine (0.66-1.25) mg/dL Glucose (74-99) mg/dL POC Glucose (mg/dL) 120 H 141 H 156 H (70-110) mg/dL Calcium (8.4-10.2) mg/dL 01/27/24 01/27/24 01/27/24 Range/Units 05:26 05:26 06:07 WBC 14.7 H (3.8-10.6) k/uL RBC 2.58 L (4.30-5.90) m/uL Hgb 7.8 L (13.0-17.5) gm/dL Hct 23.9 L (39.0-53.0) % RDW 16.6 H (11.5-15.5) % Neutrophils # 10.0 H (1.3-7.7) k/uL Monocytes # 1.1 H (0-1.0) k/uL Sodium 132 L (137-145) mmol/L Creatinine 0.57 L (0.66-1.25) mg/dL Glucose 126 H (74-99) mg/dL POC Glucose (mg/dL) 146 H (70-110) mg/dL Calcium 7.2 L (8.4-10.2) mg/dL
[2024-01-27 18:42] LABS: Glucose,Whole Blood 137 mg/dL (70-110)
[2024-01-27 23:12] LABS: Glucose,Whole Blood 107 mg/dL (70-110)
[2024-01-28 06:24] LABS: Glucose,Whole Blood 141 mg/dL (70-110)
[2024-01-28 06:53] LABS: Ionized Calcium 4.3 mg/dL (4.5-5.3)
[2024-01-28 06:59] LABS: African American GFR (CKD) >90 (>60 ml/min/1.73 sqM); Anion Gap 6 mmol/L; Blood Urea Nitrogen 20 mg/dL (9-20); Calcium 7.4 mg/dL (8.4-10.2); Carbon Dioxide 26 mmol/L (22-30); Chloride 101 mmol/L (98-107); Glucose 139 mg/dL (74-99); Magnesium 1.9 mg/dL (1.6-2.3); Non-African American GFR(CKD) >90 (>60 ml/min/1.73 sqM); Potassium 4.3 mmol/L (3.5-5.1); Sodium 133 mmol/L (137-145)
[2024-01-28 11:55] LABS: Glucose,Whole Blood 173 mg/dL (70-110)
--- NOTE | 2024-01-28 12:43 | P.PN ---
Subjective Progress Note Date: 01/28/24 On today's evaluation of 01/27/2024, the patient remains on a trach collar airfit 40% with a flow of 10 L. No significant respiratory distress. Awake and alert and communicating. Profound weakness although is able to move all 4 extremities with essentially profound weakness in the motor function is 2 out of 5 in all 4 extremities. The patient has a right-sided pigtail catheter. There is ongoing episodic air leak and the output from the right sided chest has been only 10 cc over the past 24 hours. The follow-up chest x-ray showed interval improvement in the right-sided pleural effusion and there is residual consolidation bilaterally as the patient is being treated for pseudomonal pneumonia. Sputum samples from 01/07/2024 was again positive for Pseudomonas aeruginosa and the patient remains on IV ciprofloxacin. The patient remains NPO. The patient remains on TPN for nutritional support and TPN is running at a rate of 90 cc an hour. He has an adequate urine output. The most recent CAT scan of the abdomen and pelvis from 01/25/2024 showed interval development of a dilated small bowel loop in the mid abdomen consistent with either focal ileus versus a partial obstruction. There is also findings suggestive of acute diverticulitis of the sigmoid colon with small pericolic phlegmon/abscess and this has been decreasing in size measuring previously 3.4 cm in size and currently measuring 3 cm in size. Continues to have moderate anasarca. The patient also has decreased right-sided hydropneumothorax on the right side and persistent bilateral pulmonary consolidation. Overall CAT scan findings of the chest have improved. Her white cell count is 14.7. Hemoglobin 7.8. Platelet count of 376. BUN is 19 with a creatinine of 0.5. Sodium is at 132 and a potassium level is at 3.9. The magnesium is at 1.9. Phosphorus is 3.3. Calcium is at 7.2. The patient is having some ongoing leaks around the J-tube. He is on TPN for nutritional support and remains NPO. He is on IV Flagyl in addition. Insulin is in the form of sliding scale coverage. On 01/28/2024, clinically stable and unchanged. Remains on 40% trach collar,, comfortable, communicating, motor function is still weak in all 4 extremities and unchanged compared to yesterday. No significant leaks around the J-tube. RAYA drain is still in place in the right lower quadrant and the output is minimal at this point in time. Wound VAC is also in place. There is still ongoing air leak for the pigtail catheter in his right lung and output has been minimal in the order of 10 cc over the past 12 hours. Remains on IV Cipro. Remains on IV Flagyl. Remains on TPN for nutritional support. Blood work is showing a sodium level of 133, potassium of 4.3, BUN is 20 with a creatinine of 0.6. CBC is still pending and the most recent hemoglobin is at 7.8. Objective - Vital Signs Vital signs: Vital Signs Temp 98.6 F 01/28/24 08:00 Pulse 92 01/28/24 08:53 Resp 25 H 01/28/24 08:00 BP 156/89 01/28/24 08:00 Pulse Ox 92 L 01/28/24 08:00 FiO2 40 01/27/24 15:41 Intake & Output 01/27/24 01/28/24 01/28/24 18:59 06:59 18:59 Intake Total 2196 1310 Output Total 1130 1000 20 Balance 1066 310 -20 Weight 103.3 kg Intake: IV 910 1310 0.9 Normal Saline @ KVO 90 90 Ciprofloxacin/Dextrose 400 Pmx 400 mg In Dextrose/ Water 1 200ml.bag @ 200 mls/hr IVPB Q8H [facility]END[facility] TO [facility] Rx#: [id number] TPN 720 720 metroNIDAZOLE-NS PMX 500 100 100 mg In Saline 1 100ml.bag @ 100 mls/hr IVPB Q8H PENDING SALE TO [facility] Rx#:[id number] Intake, IV Titration 1286 Amount Magnesium Sulfate-D5w Pmx 100 1 gm In Dextrose/Water 1 100ml.bag @ 100 mls/hr IVPB ONCE ONE Rx#: [id number] Mvi, Adult No.4 with Vit 1086 K 10 ml Trace (Conc-1Ml/ Dose) 1 ml Parenteral Electrolytes 20 ml Sodium Acetate 64 meq Potassium Acetate 36 meq Magnesium Sulfate gm 1 gm Sodium Phosphate 9 mmol In Amino Acids 5 %/Dextrose 20 % 1,000 ml @ 90 mls/hr IV . BY DURATION PENDING SALE TO [facility] Rx#: [id number] Potassium Chloride 20 meq 100 In Water For Injection 1 100ml.bag @ 50 mls/hr IVPB ONCE ONE Rx#: [id number] Oral 0 Output: Chest Tube Drainage 30 20 Chest Tube Right 30 20 Drainage 0 0 Medial Abdomen 0 0 Right Abdomen 0 0 Urine 1100 1000 Other: Voiding Method Indwelling Catheter Indwelling Catheter ABP, PAP, CO, CI - Last Documented Arterial Blood Pressure 173/76 - Exam Awake and alert can communicating and the patient has a tracheostomy collar at 40% FiO2, 10 L. HEENT examination is grossly unremarkable. Mucous membranes are moist. No oral lesions.. The patient also has a tracheostomy tube in place and the patient has a #8 Shiley tracheostomy tube. Cardiac exam revealed the PMI to be normally situated and sized. The rhythm was regular and no extrasystoles were noted during several minutes of auscultation. The first and second heart sounds were normal and physiologic splitting of the second heart sound was noted. There were no murmurs, rubs, clicks, or gallops. The patient is in sinus tachycardia. Lungs reveal mild scattered rhonchi. No wheezes or crackles. Breath sounds equal. Diminished breath sound lung base bilaterally. Pigtail catheter in the right chest posteriorly located with positive output and positive airleak on the Pleur-evac. Abdomen distended without bowel sounds. J-tube is noted. Mid abdominal w ound is covered with a wound VAC. Output from the wound VAC is minimal at this point in time. And underlying wound is rather clean. J tube remains in place. Some leaks around the tube noted. Extremities are intact. No cyanosis clubbing trace edema lower extremities bilaterally Skin is without rash or lesion. The wound at the Mediport site is dry and the area has been sutured and the site is clean for now. Neurologic examination is brief but nonfocal. Currently, the patient is awake and communicating. Motor function is weak in all 4 extremities, 2/5 with diminished reflexes. - Labs CBC & Chem 7: 01/27/24 05:26 01/28/24 06:20 Labs: Abnormal Lab Results - Last 24 Hours (Table) 01/27/24 01/27/24 01/28/24 Range/Units 12:01 18:39 06:20 Sodium 133 L (137-145) mmol/L Glucose 139 H (74-99) mg/dL POC Glucose (mg/dL) 142 H 137 H (70-110) mg/dL Calcium 7.4 L (8.4-10.2) mg/dL Ionized Calcium Krystal 4.3 L (4.5-5.3) mg/dL 01/28/24 Range/Units 06:22 Sodium (137-145) mmol/L Glucose (74-99) mg/dL POC Glucose (mg/dL) 141 H (70-110) mg/dL Calcium (8.4-10.2) mg/dL Ionized Calcium Krystal (4.5-5.3) mg/dL Assessment and Plan Plan: Acute hypoxemic respiratory failure with failure to wean from mechanical ventilation, S/P tracheostomy on December 10, 2023. The patient has bilateral pneumonia with a cavitary infiltrate in the right upper lobe, secondary to Pseudomonas aeruginosa and Citrobacter. The patient had a pigtail catheter inserted with drainage of the right lung abscess. The bronchial washing is positive for Pseudomonas aeruginosa, quinolone sensitive and the cultures from the pigtail catheter/lung abscess was also positive for Pseudomonas aeruginosa and follow-up CAT scan of the chest was done on 01/25/2024 showed improvement the right-sided hydropneumothorax and the patient does have residual infiltrates and patchy consolidations bilaterally. There is persistent air leak. Output from the pigtail catheter is minimal at this point in time. The patient is currently on a trach collar, off the mechanical ventilator with an FiO2 of 40% and a flow of 10 L. Right apical pneumothorax with ongoing airleak through the pigtail catheter, suspect a bronchopleural fistula in addition. There is ongoing airleak and the chest CAT scan from 01/25/2024 shows improvement in the right-sided hydropneumothorax. Output from the pigtail catheter is minimal at this point in time. Hospital-acquired right lung pseudomonalpneumonia. Patient is currently on IV Cipro . Cough, subsided, continues to have respiratory secretions. Rule out underlying bronchopleural fistula. Bronchoscopy was completed. 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 The patient remains n.p.o. Small bowel perforation with abdominal contamination. The patient is status post expiratory laparotomy and small bowel resection and insertion of another jejunostomy tube. The patient jejunostomy is not functional, awaiting further recommendations from general surgery regarding the functionality of this tube and our ability to restart enteral feeding for nutritional support. Peritonitis secondary to above, recovered. Questionable diverticulitis of the sigmoid level with a phlegmon/abscess formation. This is also improving based on the most recent CAT scan of the abdomen and pelvis done on 8 01/25/2024. Septic shock secondary to above, the patient is currently off pressors Atrial fibrillation with rapid medical response, currently back into normal sinus rhythm . 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 Malfunctioning of the J-tube, currently on TPN for nutritional support Hypertension Plan Keep the patient on 40% trach collar Aggressive pulmonary toileting Keep the pigtail catheter in place and the patient has persistent air leak Most recent CAT scan of the chest from 01/25/2024 shows improving right-sided hydropneumothorax Cultures from the right lung abscess and sputum was sent and the sputum sample was positive for Pseudomonas aeruginosa, quinolone sensitive. Continue IV ciprofloxacin Continue IV Flagyl The J-tube is nonfunctional and the patient is on TPN for nutritional support, general surgery is on the case, we will ask the surgeon to reevaluate the J-tube and awaiting further recommendations regarding the functionality of the tube and our ability to utilize some enteral feeding for nutritional support IV fluids to KVO Monitor fever pattern General Surgery is on the case regarding abdominal wound Condition remains extremely critical with poor prognosis based on the above Will continue to follow this patient along with the rest of the consultants. Evaluation was done more than 30 minutes. Time with Patient: Greater than 30
--- NOTE | 2024-01-28 12:54 | P.PN ---
Subjective Progress Note Date: 01/28/24 Principal diagnosis: Reason for follow-up is pneumonia and diverticulitis Patient is 73-year-old with male initial presentation to the hospital on 11/12/2023 after the patient did have aspiration while undergoing elective endoscopy, diagnosed with a non-Hodgkin lymphoma subsequently did have exploratory laparotomy for perforated small bowel, abdominal washout and feeding jejunostomy tube patient did require dialysis catheter placement for dialysis during this hospital stay which was subsequently discontinued, and tracheostomy for respiratory failure. On today's evaluation that is 01/28/2024, patient did have a low-grade fever 100.3 last night however has been afebrile this morning, patient is breathing comfortably on trach collar no chest pain or any worsening cough no vomiting or diarrhea has been reported. Patient did have a creatinine 0.66 no CBC was done today Objective - Vital Signs Vital signs: Vital Signs Temp 98.6 F 01/28/24 08:00 Pulse 99 01/28/24 12:00 Resp 35 H 01/28/24 12:00 BP 156/89 01/28/24 08:00 Pulse Ox 100 01/28/24 12:00 FiO2 80 01/28/24 12:36 Intake & Output 01/27/24 01/28/24 01/28/24 18:59 06:59 18:59 Intake Total 2196 2385 Output Total 1130 1000 30 Balance 1066 1385 -30 Weight 103.3 kg Intake: IV 910 1310 0.9 Normal Saline @ KVO 90 90 Ciprofloxacin/Dextrose 400 Pmx 400 mg In Dextrose/ Water 1 200ml.bag @ 200 mls/hr IVPB Q8H [facility] Rx#: [id number] TPN 720 720 metroNIDAZOLE-NS PMX 500 100 100 mg In Saline 1 100ml.bag @ 100 mls/hr IVPB Q8H [facility] Rx#:[id number] Intake, IV Titration 1286 1075 Amount Magnesium Sulfate-D5w Pmx 100 1 gm In Dextrose/Water 1 100ml.bag @ 100 mls/hr IVPB ONCE ONE Rx#: [id number] Mvi, Adult No.4 with Vit 1086 K 10 ml Trace (Conc-1Ml/ Dose) 1 ml Parenteral Electrolytes 20 ml Sodium Acetate 64 meq Potassium Acetate 36 meq Magnesium Sulfate gm 1 gm Sodium Phosphate 9 mmol In Amino Acids 5 %/Dextrose 20 % 1,000 ml @ 90 mls/hr IV . BY DURATION [facility] Rx#: [id number] Parenteral Electrolytes 1075 20 ml Sodium Acetate 64 meq Potassium Acetate 36 meq Magnesium Sulfate gm 1 gm Sodium Phosphate 9 mmol In Amino Acids 5 %/ Dextrose 20 % 1,000 ml @ 90 mls/hr IV .BY DURATION [facility] Rx#:[id number] Potassium Chloride 20 meq 100 In Water For Injection 1 100ml.bag @ 50 mls/hr IVPB ONCE ONE Rx#: [id number] Oral 0 Output: Chest Tube Drainage 30 30 Chest Tube Right 30 30 Drainage 0 0 Medial Abdomen 0 0 Right Abdomen 0 0 Urine 1100 1000 Other: Voiding Method Indwelling Catheter Indwelling Catheter Indwelling Catheter ABP, PAP, CO, CI - Last Documented Arterial Blood Pressure 173/76 - Exam GENERAL DESCRIPTION: An elderly male up in bed in no distress RESPIRATORY SYSTEM: Unlabored breathing , coarse breath sounds anteriorly HEART: S1 S2 regular rate and rhythm , ABDOMEN: Soft , no tenderness EXTREMITIES: No edema feet - Labs CBC & Chem 7: 01/27/24 05:26 01/28/24 06:20 Labs: Abnormal Lab Results - Last 24 Hours (Table) 01/27/24 01/28/24 01/28/24 Range/Units 18:39 06:20 06:22 Sodium 133 L (137-145) mmol/L Glucose 139 H (74-99) mg/dL POC Glucose (mg/dL) 137 H 141 H (70-110) mg/dL Calcium 7.4 L (8.4-10.2) mg/dL Ionized Calcium Krystal 4.3 L (4.5-5.3) mg/dL 01/28/24 Range/Units 11:53 Sodium (137-145) mmol/L Glucose (74-99) mg/dL POC Glucose (mg/dL) 173 H (70-110) mg/dL Calcium (8.4-10.2) mg/dL Ionized Calcium Krystal (4.5-5.3) mg/dL Assessment and Plan (1) Sepsis Current Visit: Yes Status: Acute Code(s): A41.9 - SEPSIS, UNSPECIFIED ORGANISM SNOMED Code(s): 64903583 (2) Pneumonia Current Visit: Yes Status: Acute Code(s): J18.9 - PNEUMONIA, UNSPECIFIED ORGANISM SNOMED Code(s): 665524356 (3) Bacteremia Current Visit: Yes Status: Acute Code(s): R78.81 - BACTEREMIA SNOMED Code(s): 3263656 Plan: 1patient with complicated pneumonia and lung abscess on the CT status post drainage catheter placement by interventional radiology subsequently did have purulent pleural fluid which has been cultured did have a chest tube and is growing Pseudomonas with slightly different sensitivity from the sputum Pseudomonas aeruginosa. 2-patient also have evidence of retro vesicular abscess on the CT abdominal pelvis, this has been discussed with the surgical team on the case in person however mention patient would not be able to tolerate any further surgery. 3patient CT chest also showed evidence of pulmonary abscess status post chest tube placement, pleural fluid cultures are growing Pseudomonas aeruginosa that is sensitive to Zerbaxa as well as tobramycin and Cipro and also growing Alejandra albicans for the patient has received adequate Cipro and Diflucan 4patient did have a follow-up CT of the chest abdominal pelvis on 01/24/2024 reporting overall decrease in the hydropneumothorax on the right side and new findings of acute diverticulitis with surrounding phlegmon 5 the patient is currently being treated with Cipro and Flagyl, the patient white count is trending down as of yesterday no CBC was done today we will repeat a CBC with a.m. lab, family question answered Dictation was produced using [employer] dictation software. please excuse any grammatical, word or spelling errors. Time with Patient: Less than 30
[2024-01-28] MEDS: ACETAMINOPHEN IV (For NPO) 1,000 MG in EMPTY BAG 1 BAG IVPB SCH (13:50)
--- NOTE | 2024-01-28 15:15 | P.PN ---
Subjective Progress Note Date: 01/28/24 January 22, 2024: ICU. Patient was on CPAP this morning. Plan was to take him to trach only this afternoon. Getting IV Precedex. Awake. Moves his head to command. Was able to move his right arm. Wound VAC remains in place. Right chest tube/pigtail catheter in place. Some air leak. Minimal output from the right RAYA drain. Secretions persist through the left J-tube site. at the bedside. Spoke to the social media analyst David. Looking into long-term placement. 01/23/24 Patient is evaluated in the ICU at the bedside. Feels anxious today, precedex is being weaned. He is awake alert. He is edematous. Abdominal wound vac in place. Right chest tube/pigtail in place. 55 ML of drainage overnight. Right sided RAYA drain. J tube in place. On TPN. He is pending approval for [facility] vs. [facility]. Blood work today reveals a sodium level of 131. Continues on IV Ciprofloxacin/ IV fluconazole. 01/24/2024 Patient remains in the intensive care unit as remains at the bedside. He was weaned off the Precedex today did receive a dose of Ativan this morning however his mood has much improved. Abdominal wound VAC in place with evidence of purulent drainage in the canister. He has had 15 mL of drainage overnight from the right sided chest tube. J-tube remains in place. He continues on TPN. He continues on IV ciprofloxacin and IV fluconazole with plans for repeat abdominal pelvis CT today by infectious disease and consider discontinuation of antibiotics afterwards. Sodium level today is 130. Still pending approval for discharge to LTAC versus [facility]. 01/25/2024 Patient remains in the intensive care unit he continues off IV Precedex at this time. Continues with TPN. Repeat chest abdomen pelvis CT completed yesterday which shows a decrease seen in the hydropneumothorax within the right lung base with drainage catheter there is no change in the bibasilar infiltrates and small left effusion. There is interval development of a dilated small bowel loop in the mid abdomen consistent with either a focal ileus or partial obstruction. There are findings suggestive of acute diverticulitis of the sigmoid colon with a small pericolic phlegmon abscess however is decreasing in the interval from compared in the prior study from 3.4 cm to 3 cm. There is moderate anasarca and the peritoneal dialysis catheter and small bowel drainage tube unchanged in position. Blood work today reveals a white blood cell count of 20.1, hemoglobin 8.3, sodium 131, BUN of 21, creatinine 0.66, magnesium 1.7. He is on IV Cipro. IV Flagyl was added today by infectious disease. Was made a full code at request of family. 01/26/2024 Patient remains in the ICU. More awake alert and oriented today. He continues on the trach collar. Sounds less congested. Continues on IV cipro and IV flagyl. White blood cell count better today at 16.3. Hgb 7.2. Sodium 130, potassium 3.4. Continues on TPN. 01/27/2024 Patient is seen in follow-up continues to be in the ICU with multiple consul tations following. Family at the bedside and patient is more awake although continues with bronchial congestion and frequent suctioning with the trach collar. Patient remains off Precedex. Patient continues on antibiotics for possible lung abscess that was positive for Pseudomonas with a persistent air leak. Minimal output of the pigtail catheter noted. FiO2 is 40% trach collar maintained on 10 L oxygen. Patient continues on TPN and will adjust accordingly per dietary and pharmacy. Overall prognosis remains extremely poor. Patient remains full code. Per nursing staff patient was denied from [facility] specialties with case management/social work following. 03/29/2023 Patient is eval in follow-up today in the intensive care unit. He had an axillary temp 101.6 for this reason a septic protocol was done including urinalysis blood cultures and viral panel. He remains on IV cipro and IV flagyl. Airleak to the chest tube remains to suction. He continues on a trach collar 40% FiO2 with oxygen at 8 L. He continues on TPN and lipids adjustments per dietary and pharmacy. We are currently not using the J-tube for feedings at this time. He has a wound VAC in place to the midline abdominal incision. He is more awake alert and oriented and less agitated. Sodium level today is 133. Renal function is within normal limits. REVIEW OF SYSTEMS: CONSTITUTIONAL: No fever, no malaise, reports fatigue HEENT: No recent visual problems or hearing problems. Denied any sore throat. CARDIOVASCULAR: No chest pain, orthopnea, PND, no palpitations, no syncope. PULMONARY: Reports shortness of breath, no cough, no hemoptysis. GASTROINTESTINAL: No diarrhea, no nausea, no vomiting, no abdominal pain. NEUROLOGICAL: No headaches, no weakness, no numbness. Anxious. PHYSICAL EXAMINATION: GENERAL: The patient is alert and oriented x2, not in any acute distress. Well developed, ill-appearing, elderly appearing. Trach Collar with an FiO2 of 40%, 10 L O2. HEENT: Pupils are round and equally reacting to light. EOMI. No scleral icterus. No conjunctival pallor. Normocephalic, atraumatic. No pharyngeal erythema. No thyromegaly. CARDIOVASCULAR: S1 and S2 present. No murmurs, rubs, or gallops. PULMONARY: Chest is clear to auscultation, no wheezing or crackles. Diminished. ABDOMEN: Soft, nontender, nondistended, normoactive bowel sounds. No palpable organomegaly. MUSCULOSKELETAL: No joint swelling or deformity. EXTREMITIES: No cyanosis, clubbing, or pedal edema. Peripheral edema 1+ NEUROLOGICAL: Diffuse weakness throughout SKIN: No rashes. Stage 2 sacral decub Assessment plan: -Aspiration and gram-negative bacterial pneumonia a bilateral initially from retained gastric contents mostly food and liquids, causing acute hypoxic respiratory failure: On presentation: Subsequent bacterial pneumonia and lung abscess sputum culture November 25: Citrobacter freundii, Pseudomonas aeruginosa. December 13: Klebsiella oxytoca, Pseudomonas aeruginosa IV meropenem-, IV Zosyn.IV ceftolozane/tazobactam, IV daptomycin, tobramycin-all discontinued Currently getting IV ciprofloxacin. , Tobramycin, Diflucan -Had became asynchronous with the ventilator; currently remains on trach collar and off Precedex, FiO2 is 40%, 10 L oxygen -Pain, multifactorial Getting Dilaudid every 2 as needed -Breakdown of tracheostomy stoma site. Dressing in place Being followed by engine repairer service -Sepsis with septicemia from above Patient received multiple antibiotics -Right l lung abscess, pigtail catheter placed January 07, 2024. Initially about 200 cc of pus obtained. During the procedure large amount of pus poured out of the tracheostomy site when patient was rolled on the left side. Status post bronchoscopy with some lavage on 01/07/2024 -Pigtail catheter in place, minimal output - lung abscess larger 1 on the right side-patient cultures are growing Pseudomonas and Klebsiella oxytoca: , Received other antibiotics. Currently on ciprofloxacin and tobramycin with infectious disease following -Acute pulmonary edema and fluid overload from hypoalbuminemic state and fluids from IV.:: Has been getting Lasix and dialysis: Both held -Altered mentation. Possibly encephalopathy. Could be delirium.: Some improvement CT brain [December 06] nothing acute Neurology following EEG-evidence of generalized cerebral dysfunction and sporadic intermittent higher amplitude sharply contoured waves mainly bifrontal. Showing cortical irritability. Keppra was started on December 07 -Critical care poly- Pedro neuropathy: Slow to respond PT OT -Gallstones, asymptomatic -Small l bowel perforation at site of jejunostomy tube tip with balloon..: Portion of small bowel resected. On November 24. New J-tube was placed.- drainage to gravity:-Now discontinued December 19: J-tube blocked. J-tube replaced on December 20 over wire December 21: Leaking around the J-tube site. Feeding held December 23: J feeding was started yesterday evening but again started leaking increasingly around the J-tube site-feeding held again December 24: J-tube feeding has been held. Patient is currently having increased drainage from the J-tube site and patient is maintained on only TPN -Acute kidney injury. Possible ATN from hypotensive shock: Resolved Renal ultrasound unremarkable. Started on renal replacement therapy on November 28. Last hemodialysis on December 17. Being followed by an nephrology. Good urine output. -Nutrition Jejunostomy tube placed November [address] Ewing, nonfunctioning Received TPN-currently maintained on TPN TPN lipids restarted on January 24 -Midline abdominal incision wound dehiscence Wound VAC placed -Acute recurrent atrial fibrillation-converted to sinus rhythm Received IV amiodarone. Cardiology following -Acute hypoxic respiratory failure from aspiration pneumonia, status post ventilator assisted: Reintubated November 25. FiO2 35 PEEP of 5 Tracheostomy tube-by Dr. Ewing on December 09 -Septic shock, recovered -Hypertension, recurrent Had received Cleviprex. Hydralazine added -Intermittent hypotension: Corrected Intermittent use of Levophed. 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 Also anemia of blood draw. Iron deficiency anemia Received total of 6 units of blood IV iron. -Severe thrombocytopenia. Would consider coagulation disorder secondary to infection., In the setting of underlying lymphoma.: Fluctuating with infection Hematology following. -Acute blood loss anemia -Sacral stage II decub ulcer Dressing in place -Hypokalemia, multiple causes -Hypoglycemia: Corrected -GERD PPI -Acute diarrhea secondary to tube feeding.: Resolved C. difficile ruled out. -Large superficial gastric antral ulceration involving the gastric antrum extending into the pylorus with gastric outlet obstruction. 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 -DNR made on January 12. Now full code with instructions on January 17 Remains off IV Precedex at this time. White blood cell count has been increasing up to 20.1 today based off the abdominal pelvis chest CT results patient is been started on IV metronidazole in conjunction with IV Cipro and infectious diseases following closely. TPN lipids continue. Surgery recommending to continue holding off using the Jtube and to not change the position. Discussed CT results ileus vs. partial obstruction; per surgery this is not a concern at this time are likely just an ileus and to continue with the suppositories and TPN feedings. Chest tube remains in place. RAYA drain remains in place. Wound vac to the midline abdomen remains in place. Continue pressure offloading and barrier cream to the sacral decub. Tracheostomy in place and remains on the trach collar. Patient was denied going to [facility] special[facility] and per nursing staff and case management/social work, no safe order planner excepting ECF or facility at this time. Overall prognosis is extremely poor and guarded at this time The impression and plan of care has been dictated by Carol Ulrich Nurse Practitioner as directed. Dr. Jozef MD I have performed a history and physical examination and medical decision making of this patient, discussed the same with the dictator, and agree with the dictators assessment and plan as written, documented as a scribe. Based on total visit time, I have performed more than 50% of this visit. Objective - Vital Signs Vital signs: Vital Signs Temp 101.6 F H 01/28/24 13:36 Pulse 96 01/28/24 13:36 Resp 35 H 01/28/24 12:00 BP 159/90 01/28/24 13:36 Pulse Ox 100 01/28/24 12:00 FiO2 80 01/28/24 12:36 Intake & Output 01/27/24 01/28/24 01/28/24 18:59 06:59 18:59 Intake Total 2196 2385 Output Total 1130 1000 830 Balance 1066 1385 -830 Weight 103.3 kg 103.3 kg Intake: IV 910 1310 0.9 Normal Saline @ KVO 90 90 Ciprofloxacin/Dextrose 400 Pmx 400 mg In Dextrose/ Water 1 200ml.bag @ 200 mls/hr IVPB Q8H [facility] Rx#: [id number] TPN 720 720 metroNIDAZOLE-NS PMX 500 100 100 mg In Saline 1 100ml.bag @ 100 mls/hr IVPB Q8H [facility] Rx#:[id number] Intake, IV Titration 1286 1075 Amount Magnesium Sulfate-D5w Pmx 100 1 gm In Dextrose/Water 1 100ml.bag @ 100 mls/hr IVPB ONCE ONE Rx#: [id number] Mvi, Adult No.4 with Vit 1086 K 10 ml Trace (Conc-1Ml/ Dose) 1 ml Parenteral Electrolytes 20 ml Sodium Acetate 64 meq Potassium Acetate 36 meq Magnesium Sulfate gm 1 gm Sodium Phosphate 9 mmol In Amino Acids 5 %/Dextrose 20 % 1,000 ml @ 90 mls/hr IV . BY DURATION [facility] Rx#: [id number] Parenteral Electrolytes 1075 20 ml Sodium Acetate 64 meq Potassium Acetate 36 meq Magnesium Sulfate gm 1 gm Sodium Phosphate 9 mmol In Amino Acids 5 %/ Dextrose 20 % 1,000 ml @ 90 mls/hr IV .BY DURATION [facility] Rx#:[id number] Potassium Chloride 20 meq 100 In Water For Injection 1 100ml.bag @ 50 mls/hr IVPB ONCE ONE Rx#: [id number] Oral 0 Output: Chest Tube Drainage 30 30 Chest Tube Right 30 30 Drainage 0 0 Medial Abdomen 0 0 Right Abdomen 0 0 Urine 1100 1000 800 Other: Voiding Method Indwelling Catheter Indwelling Catheter Indwelling Catheter ABP, PAP, CO, CI - Last Documented Arterial Blood Pressure 173/76 - Labs CBC & Chem 7: 01/27/24 05:26 01/28/24 06:20 Labs: Abnormal Lab Results - Last 24 Hours (Table) 01/27/24 01/28/24 01/28/24 Range/Units 18:39 06:20 06:22 Sodium 133 L (137-145) mmol/L Glucose 139 H (74-99) mg/dL POC Glucose (mg/dL) 137 H 141 H (70-110) mg/dL Calcium 7.4 L (8.4-10.2) mg/dL Ionized Calcium Krystal 4.3 L (4.5-5.3) mg/dL 01/28/24 Range/Units 11:53 Sodium (137-145) mmol/L Glucose (74-99) mg/dL POC Glucose (mg/dL) 173 H (70-110) mg/dL Calcium (8.4-10.2) mg/dL Ionized Calcium Krystal (4.5-5.3) mg/dL Assessment and Plan Time with Patient: Less than 30
--- NOTE | 2024-01-28 17:55 | P.PN ---
Subjective Progress Note Date: 01/28/24 Patient seen and examined at bedside. Alert. Family at bedside. Patient did have febrile episode Objective - Vital Signs Vital signs: Vital Signs Temp 98.7 F 01/28/24 16:00 Pulse 86 01/28/24 16:00 Resp 35 H 01/28/24 16:00 BP 147/81 01/28/24 16:00 Pulse Ox 95 01/28/24 16:00 FiO2 80 01/28/24 12:36 Intake & Output 01/27/24 01/28/24 01/28/24 18:59 06:59 18:59 Intake Total 2196 2385 Output Total 1130 1000 840 Balance 1066 1385 -840 Weight 103.3 kg 103.3 kg Intake: IV 910 1310 0.9 Normal Saline @ KVO 90 90 Ciprofloxacin/Dextrose 400 Pmx 400 mg In Dextrose/ Water 1 200ml.bag @ 200 mls/hr IVPB Q8H [facility] Rx#: [id number] TPN 720 720 metroNIDAZOLE-NS PMX 500 100 100 mg In Saline 1 100ml.bag @ 100 mls/hr IVPB Q8H [facility] Rx#:[id number] Intake, IV Titration 1286 1075 Amount Magnesium Sulfate-D5w Pmx 100 1 gm In Dextrose/Water 1 100ml.bag @ 100 mls/hr IVPB ONCE ONE Rx#: [id number] Mvi, Adult No.4 with Vit 1086 K 10 ml Trace (Conc-1Ml/ Dose) 1 ml Parenteral Electrolytes 20 ml Sodium Acetate 64 meq Potassium Acetate 36 meq Magnesium Sulfate gm 1 gm Sodium Phosphate 9 mmol In Amino Acids 5 %/Dextrose 20 % 1,000 ml @ 90 mls/hr IV . BY DURATION [facility] Rx#: [id number] Parenteral Electrolytes 1075 20 ml Sodium Acetate 64 meq Potassium Acetate 36 meq Magnesium Sulfate gm 1 gm Sodium Phosphate 9 mmol In Amino Acids 5 %/ Dextrose 20 % 1,000 ml @ 90 mls/hr IV .BY DURATION [facility] Rx#:[id number] Potassium Chloride 20 meq 100 In Water For Injection 1 100ml.bag @ 50 mls/hr IVPB ONCE ONE Rx#: [id number] Oral 0 Output: Chest Tube Drainage 30 40 Chest Tube Right 30 40 Drainage 0 0 Medial Abdomen 0 0 Right Abdomen 0 0 Urine 1100 1000 800 Other: Voiding Method Indwelling Catheter Indwelling Catheter Indwelling Catheter ABP, PAP, CO, CI - Last Documented Arterial Blood Pressure 173/76 - Constitutional General appearance: Present: cooperative - Gastrointestinal Gastrointestinal Comment(s): Midline wound appears to be healing well with wound VAC placement, pictures were reviewed, J-tube in place with improved output from fistula tract, RAYA drain in place with no significant output over the past 48 hours - Labs CBC & Chem 7: 01/27/24 05:26 01/28/24 06:20 Labs: Abnormal Lab Results - Last 24 Hours (Table) 01/27/24 01/28/24 01/28/24 Range/Units 18:39 06:20 06:22 Sodium 133 L (137-145) mmol/L Glucose 139 H (74-99) mg/dL POC Glucose (mg/dL) 137 H 141 H (70-110) mg/dL Calcium 7.4 L (8.4-10.2) mg/dL Ionized Calcium Krystal 4.3 L (4.5-5.3) mg/dL 01/28/24 Range/Units 11:53 Sodium (137-145) mmol/L Glucose (74-99) mg/dL POC Glucose (mg/dL) 173 H (70-110) mg/dL Calcium (8.4-10.2) mg/dL Ionized Calcium Krystal (4.5-5.3) mg/dL Assessment and Plan Plan: PLAN: -At this time, patients J tube site fistula is mature. Output from around the J-tube site appears to be improving. Case was discussed with decorative engraver apprentice and as there is improved conditions of this tube, we will continue current treatment regimen until safer time to begin attempting tube feeds. -RAYA drain removed at bedside -Wound VAC scheduled changes. -Continue supportive care -Continue TPN for nutrition support
[2024-01-28 18:06] LABS: Glucose,Whole Blood 158 mg/dL (70-110)
[2024-01-28 18:12] LABS: Amorphous Sediment,Urine Few /hpf; Appearance,Urine Cloudy (Clear); Bacteria,Urine Rare /hpf; Bilirubin,Urine Negative (Negative); Blood,Urine Small (Negative); Budding Yeast,Urine Rare /hpf; Color,Urine Yellow; Glucose,Urine (UA) Negative (Negative); Hyaline Casts,Urine 3 /lpf (0-2); Ketones,Urine Negative (Negative); Leukocyte Esterase,Urine Large (Negative); Mucus,Urine Rare /hpf; Nitrite,Urine Negative (Negative); Protein,Urine 1+ (Negative); RBC,Urine 13 /hpf (0-5); Specific Gravity,Urine 1.015 (1.001-1.035); Squamous Epithelial Cell,Urine <1 /hpf (0-4); Urobilinogen,Urine <2.0 mg/dL (<2.0); WBC,Urine 78 /hpf (0-5)
[2024-01-28 23:27] LABS: Glucose,Whole Blood 148 mg/dL (70-110)
[2024-01-29 01:01] LABS: Glucose,Whole Blood 162 mg/dL (70-110)
[2024-01-29 05:57] LABS: Glucose,Whole Blood 141 mg/dL (70-110)
[2024-01-29 06:07] LABS: Anisocytosis Slight; Basophils # (A) 0.1 k/uL (0-0.2); Basophils % (A) 0 %; Eosinophils # (A) 0.3 k/uL (0-0.7); Eosinophils % (A) 1 %; HCT 22.3 % (39.0-53.0); Hypochromasia Marked; Lymphocytes # (A) 4.4 k/uL (1.0-4.8); Lymphocytes % (A) 19 %; MCH 29.1 pg (25.0-35.0); MCHC 29.5 g/dL (31.0-37.0); MCV 98.6 fL (80.0-100.0); Macrocytosis Slight; Mean Platelet Volume 8.2; Monocytes % (A) 4 %; Neutrophils # (A) 17.8 k/uL (1.3-7.7); Neutrophils % (A) 75 %; RBC 2.26 m/uL (4.30-5.90); RDW 16.3 % (11.5-15.5); WBC 23.8 k/uL (3.8-10.6)
[2024-01-29 06:13] LABS: HGB 6.6 gm/dL (13.0-17.5); Platelet Count 162 k/uL (150-450)
[2024-01-29 06:25] LABS: African American GFR (CKD) >90 (>60 ml/min/1.73 sqM); Anion Gap 7 mmol/L; Blood Urea Nitrogen 21 mg/dL (9-20); Calcium 7.5 mg/dL (8.4-10.2); Carbon Dioxide 25 mmol/L (22-30); Chloride 102 mmol/L (98-107); Glucose 129 mg/dL (74-99); Magnesium 2.1 mg/dL (1.6-2.3); Non-African American GFR(CKD) >90 (>60 ml/min/1.73 sqM); Phosphorus 3.7 mg/dL (2.5-4.5); Potassium 4.2 mmol/L (3.5-5.1); Sodium 134 mmol/L (137-145)
[2024-01-29 07:53] LABS: Anisocytosis Slight; Basophils # (A) 0.1 k/uL (0-0.2); Basophils % (A) 0 %; Eosinophils # (A) 0.4 k/uL (0-0.7); Eosinophils % (A) 2 %; HCT 24.3 % (39.0-53.0); HGB 7.6 gm/dL (13.0-17.5); Hypochromasia Moderate; Lymphocytes # (A) 3.1 k/uL (1.0-4.8); Lymphocytes % (A) 15 %; MCH 29.9 pg (25.0-35.0); MCHC 31.4 g/dL (31.0-37.0); MCV 95.1 fL (80.0-100.0); Monocytes # (A) 0.8 k/uL (0-1.0); Monocytes % (A) 4 %; Neutrophils # (A) 15.7 k/uL (1.3-7.7); Neutrophils % (A) 78 %; RBC 2.55 m/uL (4.30-5.90); RDW 16.3 % (11.5-15.5); WBC 20.2 k/uL (3.8-10.6)
[2024-01-29 08:01] LABS: Platelet Count 387 k/uL (150-450)
[2024-01-29] MEDS: CALCIUM GLUCONATE IN NACL 1 GM in SALINE 1 100ML.BAG IVPB ONE (09:34)
--- NOTE | 2024-01-29 10:35 | XR ---
EXAMINATION TYPE: XR chest 1V portable DATE OF EXAM: 01/29/2024 10:24 AM COMPARISON: 01/25/2024 CLINICAL INDICATION: Male, 73 years old with history of hypoxia, , FINDINGS: Tracheostomy cannula. Left CVC likely within the upper right atrium. Right intradiscal injection port with catheter tip likely at the inferior cavoatrial junction. Heart mildly enlarged. Multifocal patc hy and confluent airspace opacity appears slightly worsened. Right-sided pleural catheter is noted wi th similar small right pleural effusion. IMPRESSION: 1. Patchy and confluent bilateral airspace disease similar to slightly worsened. 2. Right-sided pleural catheter demonstrated. There is similar small right pleural effusion. [facility], , 01/29/2024 10:32 AM
[2024-01-29] MEDS: DEXMEDETOMIDINE/0.9% NACL(PMX) 400 MCG in EMPTY BAG 1 BAG IV SCH (11:38)
[2024-01-29 11:53] LABS: Glucose,Whole Blood 149 mg/dL (70-110)
[2024-01-29] MEDS ORDERED: VANCOMYCIN IV PER PHARMACY 1 EACH MISC MISCELLANE PRN (12:25)
[2024-01-29] MEDS: CISATRACURIUM 200 MG in SODIUM CHLORIDE 0.9% 180 ML IV SCH (12:48)
[2024-01-29] MEDS: CISATRACURIUM 2 MG/ML 5 ML VIAL IV ONE (12:48)
[2024-01-29] MEDS: VANCOMYCIN 1,500 MG in SODIUM CHLORIDE 0.9% 500 ML 500 ML IVPB SCH (14:23)
[2024-01-29 17:56] LABS: Glucose,Whole Blood 246 mg/dL (70-110)
--- NOTE | 2024-01-29 18:22 | P.PN ---
Subjective Progress Note Date: 01/29/24 On today's evaluation of 01/27/2024, the patient remains on a trach collar airfit 40% with a flow of 10 L. No significant respiratory distress. Awake and alert and communicating. Profound weakness although is able to move all 4 extremities with essentially profound weakness in the motor function is 2 out of 5 in all 4 extremities. The patient has a right-sided pigtail catheter. There is ongoing episodic air leak and the output from the right sided chest has been only 10 cc over the past 24 hours. The follow-up chest x-ray showed interval improvement in the right-sided pleural effusion and there is residual consolidation bilaterally as the patient is being treated for pseudomonal pneumonia. Sputum samples from 01/07/2024 was again positive for Pseudomonas aeruginosa and the patient remains on IV ciprofloxacin. The patient remains NPO. The patient remains on TPN for nutritional support and TPN is running at a rate of 90 cc an hour. He has an adequate urine output. The most recent CAT scan of the abdomen and pelvis from 01/25/2024 showed interval development of a dilated small bowel loop in the mid abdomen consistent with either focal ileus versus a partial obstruction. There is also findings suggestive of acute diverticulitis of the sigmoid colon with small pericolic phlegmon/abscess and this has been decreasing in size measuring previously 3.4 cm in size and currently measuring 3 cm in size. Continues to have moderate anasarca. The patient also has decreased right-sided hydropneumothorax on the right side and persistent bilateral pulmonary consolidation. Overall CAT scan findings of the chest have improved. Her white cell count is 14.7. Hemoglobin 7.8. Platelet count of 376. BUN is 19 with a creatinine of 0.5. Sodium is at 132 and a potassium level is at 3.9. The magnesium is at 1.9. Phosphorus is 3.3. Calcium is at 7.2. The patient is having some ongoing leaks around the J-tube. He is on TPN for nutritional support and remains NPO. He is on IV Flagyl in addition. Insulin is in the form of sliding scale coverage. On 01/28/2024, clinically stable and unchanged. Remains on 40% trach collar,, comfortable, communicating, motor function is still weak in all 4 extremities and unchanged compared to yesterday. No significant leaks around the J-tube. RAYA drain is still in place in the right lower quadrant and the output is minimal at this point in time. Wound VAC is also in place. There is still ongoing air leak for the pigtail catheter in his right lung and output has been minimal in the order of 10 cc over the past 12 hours. Remains on IV Cipro. Remains on IV Flagyl. Remains on TPN for nutritional support. Blood work is showing a sodium level of 133, potassium of 4.3, BUN is 20 with a creatinine of 0.6. CBC is still pending and the most recent hemoglobin is at 7.8. On 01/29/2024, the patient's condition is decompensated. Earlier this morning, the patient was found to be in more respiratory distress. Overnight, he was bender ving episodes of hypoglycemia and the patient was placed on 80% trach collar. Later on during the morning, the patient decompensated further. A repeat chest x-ray was done and the patient was found to have patchy confluent bilateral airspace disease with worsening especially on the left. The patient has a right-sided pigtail catheter in place. No evidence of any air leak. Output remains minimal from the pigtail catheter. Noted with those changes, the patient was resedated. Initially was started on Precedex and later on to propofol as the patient was quite tachypneic and is synchronous with the mechanical ventilator. He was placed on a control mode with rate of 16, TV 500, PEEP of 10 with an FiO2 of 100%. Subsequently, he started having significant amount of leak around the tracheostomy tube and he was not returning volumes back. I did a bedside tracheostomy tube exchange and inserted another Shiley #8 tracheostomy tube catheter. Following that, I performed a bronchoscopy and obtain a bronchial lavage of the lingula as the patient had worsening in airspace disease specially on the left. Meanwhile, the patient remains on IV cefepime. The patient remains on Flagyl. Remains hemodynamically stable. Cardiac rhythm is sinus tachycardia. Remains on TPN for nutritional shipley pport at a rate of 90. The RAYA drain was removed yesterday by the surgical team. There is no interval increase in the leaks around the J-tube. He is not receiving enteral feeding for now. His white cell count currently is up to 20 with a hemoglobin 7.6 and a platelet count of 387. Electrolytes from today shows a BUN of 21 with a creatinine of 0.6. Sodium levels at 134 with a potassium level of 4.2, bicarb of 25. Objective - Vital Signs Vital signs: Vital Signs Temp 98.9 F 01/29/24 08:00 Pulse 105 H 01/29/24 17:26 Resp 23 01/29/24 14:00 BP 133/83 01/29/24 14:00 Pulse Ox 100 01/29/24 14:00 FiO2 100 01/29/24 16:00 Intake & Output 01/28/24 01/29/24 01/29/24 18:59 06:59 18:59 Intake Total 1086 2075 1237.420 Output Total 840 630 450 Balance 246 1445 787.420 Weight 103.3 kg 103.2 kg Intake: IV 870 0.9 Normal Saline @ KVO 110 Ciprofloxacin/Dextrose 200 Pmx 400 mg In Dextrose/ Water 1 200ml.bag @ 200 mls/hr IVPB Q8H [facility] Rx#: [id number] TPN 360 metroNIDAZOLE-NS PMX 500 200 mg In Saline 1 100ml.bag @ 100 mls/hr IVPB Q8H [facility] Rx#:[id number] Intake, IV Titration 1086 1075 97.420 Amount Cisatracurium 200 mg In 12.848 Sodium Chloride 0.9% 180 ml @ 1 MCG/KG/MIN 6.192 mls/hr IV .Q24H [facility] Rx#: [id number] Dexmedetomidine/0.9% NaCl 3.870 (Pmx) 400 mcg In Empty Bag 1 bag @ 0.2 MCG/KG/HR 5.16 mls/hr IV .[id number] [facility] Rx#:[id number] Mvi, Adult No.4 with Vit 1086 K 10 ml Trace (Conc-1Ml/ Dose) 1 ml Parenteral Electrolytes 20 ml Sodium Acetate 64 meq Potassium Acetate 36 meq Magnesium Sulfate gm 1 gm Sodium Phosphate 9 mmol In Amino Acids 5 %/Dextrose 20 % 1,000 ml @ 90 mls/hr IV . BY DURATION [facility] Rx#: [id number] Parenteral Electrolytes 1075 20 ml Sodium Acetate 64 meq Potassium Acetate 36 meq Magnesium Sulfate gm 1 gm Sodium Phosphate 9 mmol In Amino Acids 5 %/ Dextrose 20 % 1,000 ml @ 90 mls/hr IV .BY DURATION [facility] Rx#:[id number] propofoL 1,000 mg In 80.702 Empty Bag 1 bag @ 15 MCG/ KG/MIN 9.288 mls/hr IV . [id number] [facility] Rx#:[id number] TPN/PPN 1000 270 TPN 1000 270 Output: Chest Tube Drainage 40 30 30 Chest Tube Right 40 30 30 Drainage 0 Medial Abdomen 0 Right Abdomen 0 Urine 800 600 420 Other: Voiding Method Indwelling Catheter Indwelling Catheter Indwelling Catheter ABP, PAP, CO, CI - Last Documented Arterial Blood Pressure 173/76 - Exam The patient was sedated and he was quite asynchronous on mechanical ventilator. He is currently on a combination of propofol and Nimbex. HEENT examination is grossly unremarkable. Mucous membranes are moist. No oral lesions.. The patient also has a tracheostomy tube in place and the patient has a #8 Shiley tracheostomy tube. Cardiac exam revealed the PMI to be normally situated and sized. The rhythm was regular and no extrasystoles were noted during several minutes of auscultation. The first and second heart sounds were normal and physiologic splitting of the second heart sound was noted. There were no murmurs, rubs, clicks, or gallops. The patient is in sinus tachycardia. Lungs reveal mild scattered rhonchi. No wheezes or crackles. Breath sounds eq ual. Diminished breath sound lung base bilaterally. Pigtail catheter in the right chest posteriorly located with positive output and positive airleak on the Pleur-evac. Abdomen distended without bowel sounds. J-tube is noted. Mid abdominal wound is covered with a wound VAC. Output from the wound VAC is minimal at this point in time. And underlying wound is rather clean. J tube remains in place. Some leaks around the tube noted. The RAYA drain has been removed. Extremities are intact. No cyanosis clubbing trace edema lower extremities bilaterally Skin is without rash or lesion. The wound at the Mediport site is dry and the area has been sutured and the site is clean for now. Neurologic profound weakness in all 4 extremities and the patient is currently on sedation. - Labs CBC & Chem 7: 01/29/24 07:47 01/29/24 05:26 Labs: Abnormal Lab Results - Last 24 Hours (Table) 01/28/24 01/29/24 01/29/24 Range/Units 23:26 01:00 05:26 WBC (3.8-10.6) k/uL RBC (4.30-5.90) m/uL Hgb (13.0-17.5) gm/dL Hct (39.0-53.0) % MCHC (31.0-37.0) g/dL RDW (11.5-15.5) % Neutrophils # (1.3-7.7) k/uL Sodium 134 L (137-145) mmol/L BUN 21 H (9-20) mg/dL Glucose 129 H (74-99) mg/dL POC Glucose (mg/dL) 148 H 162 H (70-110) mg/dL Calcium 7.5 L (8.4-10.2) mg/dL 01/29/24 01/29/24 01/29/24 Range/Units 05:26 05:55 07:47 WBC 23.8 H 20.2 H (3.8-10.6) k/uL RBC 2.26 L 2.55 L (4.30-5.90) m/uL Hgb 6.6 L* 7.6 L (13.0-17.5) gm/dL Hct 22.3 L 24.3 L (39.0-53.0) % MCHC 29.5 L (31.0-37.0) g/dL RDW 16.3 H 16.3 H (11.5-15.5) % Neutrophils # 17.8 H 15.7 H (1.3-7.7) k/uL Sodium (137-145) mmol/L BUN (9-20) mg/dL Glucose (74-99) mg/dL POC Glucose (mg/dL) 141 H (70-110) mg/dL Calcium (8.4-10.2) mg/dL 01/29/24 01/29/24 Range/Units 11:51 17:55 WBC (3.8-10.6) k/uL RBC (4.30-5.90) m/uL Hgb (13.0-17.5) gm/dL Hct (39.0-53.0) % MCHC (31.0-37.0) g/dL RDW (11.5-15.5) % Neutrophils # (1.3-7.7) k/uL Sodium (137-145) mmol/L BUN (9-20) mg/dL Glucose (74-99) mg/dL POC Glucose (mg/dL) 149 H 246 H (70-110) mg/dL Calcium (8.4-10.2) mg/dL Assessment and Plan Plan: Acute hypoxemic respiratory failure with failure to wean from mechanical ve ntilation, S/P tracheostomy on December 10, 2023. The patient has bilateral pneumonia with a cavitary infiltrate in the right upper lobe, secondary to Pseudomonas aeruginosa and Citrobacter. The patient had a pigtail catheter inserted with drainage of the right lung abscess. The bronchial washing is positive for Pseudomonas aeruginosa, quinolone sensitive and the cultures from the pigtail catheter/lung abscess was also positive for Pseudomonas aeruginosa and follow-up CAT scan of the chest was done on 01/25/2024 showed improvement the right-sided hydropneumothorax and the patient does have residual infiltrates and patchy consolidations bilaterally. Earlier this morning, the patient jeanna me progressively more hypoxic. Went into significant respiratory distress and the patient was sedated and the patient is currently on a combination of sedation and paralytics with a combination of Nimbex and propofol. He is on volume-cycled mode of mechanical ventilation. Blood gases are to follow. Chest x-ray shows interval worsening of the infiltrates with extensive consolidation in the left. Tracheostomy tube was exchanged due to massive air leaks and the leaks were eliminated. Bronchoscopy also done with a bronchial lavage of the left upper lobe. Right apical pneumothorax with ongoing airleak through the pigtail catheter, suspect a bronchopleural fistula in addition. There is no airleak and the chest CAT scan from 01/25/2024 shows improvement in the right-sided hydropneumothorax. Output from the pigtail catheter is minimal at this point in time. Nevertheless, the follow-up chest x-ray from today showing worsening in the consolidation especially left. Hospital-acquired right lung pseudomonalpneumonia. Patient is currently on IV Cipro . Cough, subsided, continues to have respiratory secretions. Rule out underlying bronchopleural fistula. Bronchoscopy was completed. 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 The patient remains n.p.o. Small bowel perforation with abdominal contamination. The patient is status post expiratory laparotomy and small bowel resection and insertion of another jejunostomy tube. The patient jejunostomy is not functional, awaiting further recommendations from general surgery regarding the functionality of this tube and our ability to restart enteral feeding for nutritional support. The RAYA drain has been removed on 01/28/2024. Peritonitis secondary to above, recovered. Questionable diverticulitis of the sigmoid level with a phlegmon/abscess formation. This is also improving based on the most recent CAT scan of the abdomen and pelvis done on 8 01/25/2024. Septic shock secondary to above, the patient is currently off pressors Atrial fibrillation with rapid medical response, currently back into normal sinus rhythm . 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 Malfunctioning of the J-tube, currently on TPN for nutritional support Hypertension Plan Keep the patient on a combination of propofol and Nimbex for the next 24 hours Obtain a blood gas Wean FiO2 slowly to maintain saturation above 90% Bronchoscopy and bronchial lavage of the left upper lobe/lingula was done Keep the pigtail catheter in place and the patient has no air leak on today's evaluation Previous cultures from the right lung abscess and sputum was sent and the sputum sample was positive for Pseudomonas aeruginosa, quinolone sensitive. Continue IV ciprofloxacin Continue IV Flagyl The J-tube is nonfunctional and the patient is on TPN for nutritional support, general surgery is on the case, we will ask the surgeon to reevaluate the J-tube and any surgical recommendations was to keep the patient n.p.o. and the J-tube. Drain has been removed IV fluids to KVO Monitor fever pattern General Surgery is on the case regarding abdominal wound Will consider broadening the antibiotic coverage and will discuss this with infectious disease Hemoglobin is stable Condition remains extremely critical with poor prognosis based on the above Will continue to follow this patient along with the rest of the consultants. Evaluation was done more than 30 minutes.
--- NOTE | 2024-01-29 18:26 | P.PCN ---
Date of Procedure: 01/29/24 Preoperative Diagnosis: Air leak around the tracheostomy tube, respiratory failure Postoperative Diagnosis: Same Procedure(s) Performed: Tracheostomy tube exchange Bronchoscopy and bronchoalveolar lavage of the lingula Anesthesia: JOHANA Surgeon: Oswald Love Estimated Blood Loss (ml): 0 Pathology: other Condition: critical Disposition: ICU Operative Findings: Tracheostomy tube exchange The patient was having significant amount of leaks through his mouth and around the tracheostomy tube and he was not returning his volumes. Based on that, bedside tracheostomy tube exchange was done. The previously inserted tracheostomy tube was easily removed. Obviously, the cuff was inspected and the tear was identified which was causing significant amount of air leak. The stoma was wide open and the patient had a nice track. I was able to easily insert a #8 Shiley tracheostomy tube and the cuff was inflated and the air leak resolved. Bronchoscopy/bronchoalveolar lavage The portable flexor bronchoscope was inserted through the tracheostomy tube and the position of the tube was confirmed. Following that, a bronchoscopy was completed while the patient being on the mechanical ventilator and the patient was also sedated with propofol. The distal trachea was patent and within normal limits. No suspicious secretions were encountered bilaterally more so on the left. Examination included the bilateral mainstem bronchi, right upper lobe bronchus, right middle lobe bronchus and the right lower lobe bronchus and the bronchus intermedius. Examination of the left included the left upper lobe bronchus and the left lower lobe bronchus. The various segments on the right and 8 segments on the left were also inspected. Following that, the bronchoscope was wedged in the superior segment of the lingula and a bronchioloalveolar lavage was done. A total of 80 cc of fluid was infused and 25 cc was aspirated without any major difficulties. The aspirate was nonbloody and was sent for microbial cultures and analysis. At the completion of the procedure, the patient had adequate oxygenation. No air leaks and the patient was able to return his lung volumes adequately.
[2024-01-29 18:46] LABS: ABG Base Excess 1.5 mmol/L; ABG HCO3 30 mmol/L (21-25); ABG Oxygen Saturation 96.9 % (94-97); ABG PO2 101 mmHg (83-108); ABG TCO2 33 mmol/L (19-24); Allen Test Performed? Yes
[2024-01-29 18:48] LABS: ABG PCO2 82 mmHg (35-45); ABG PH 7.18 (7.35-7.45)
--- NOTE | 2024-01-29 19:38 | P.PN ---
Subjective Progress Note Date: 01/29/24 Patient seen and examined at bedside. States he wants to get out of bed and walk. Patient with leukocytosis today above 20,000. No other significant changes Objective - Vital Signs Vital signs: Vital Signs Temp 98.8 F 01/29/24 16:00 Pulse 122 H 01/29/24 19:00 Resp 28 H 01/29/24 19:00 BP 101/64 01/29/24 18:00 Pulse Ox 100 01/29/24 19:00 FiO2 75 01/29/24 16:00 Intake & Output 01/29/24 01/29/24 01/30/24 06:59 18:59 06:59 Intake Total 2075 1347.420 Output Total 630 551 Balance 1445 796.420 Weight 103.2 kg Intake: IV 980 0.9 Normal Saline @ KVO 130 Ciprofloxacin/Dextrose 200 Pmx 400 mg In Dextrose/ Water 1 200ml.bag @ 200 mls/hr IVPB Q8H [facility] Rx#: [id number] TPN 450 metroNIDAZOLE-NS PMX 500 200 mg In Saline 1 100ml.bag @ 100 mls/hr IVPB Q8H [facility] Rx#:[id number] Intake, IV Titration 1075 97.420 Amount Cisatracurium 200 mg In 12.848 Sodium Chloride 0.9% 180 ml @ 1 MCG/KG/MIN 6.192 mls/hr IV .Q24H [facility] Rx#: [id number] Dexmedetomidine/0.9% NaCl 3.870 (Pmx) 400 mcg In Empty Bag 1 bag @ 0.2 MCG/KG/HR 5.16 mls/hr IV .[id number] [facility] Rx#:[id number] Parenteral Electrolytes 1075 20 ml Sodium Acetate 64 meq Potassium Acetate 36 meq Magnesium Sulfate gm 1 gm Sodium Phosphate 9 mmol In Amino Acids 5 %/ Dextrose 20 % 1,000 ml @ 90 mls/hr IV .BY DURATION [facility] Rx#:[id number] propofoL 1,000 mg In 80.702 Empty Bag 1 bag @ 15 MCG/ KG/MIN 9.288 mls/hr IV . [id number] [facility] Rx#:[id number] TPN/PPN 1000 270 TPN 1000 270 Output: Chest Tube Drainage 30 100 Chest Tube Right 30 100 Urine 600 450 Stool 1 Other: Voiding Method Indwelling Catheter Indwelling Catheter ABP, PAP, CO, CI - Last Documented Arterial Blood Pressure 173/76 - Constitutional General appearance: Present: cooperative - Gastrointestinal Gastrointestinal Comment(s): Soft, nontender, wound VAC in place, minimal drainage from around J-tube site - Labs CBC & Chem 7: 01/29/24 07:47 01/29/24 05:26 Labs: Abnormal Lab Results - Last 24 Hours (Table) 01/28/24 01/29/24 01/29/24 Range/Units 23:26 01:00 05:26 WBC (3.8-10.6) k/uL RBC (4.30-5.90) m/uL Hgb (13.0-17.5) gm/dL Hct (39.0-53.0) % MCHC (31.0-37.0) g/dL RDW (11.5-15.5) % Neutrophils # (1.3-7.7) k/uL ABG pH (7.35-7.45) ABG pCO2 (35-45) mmHg ABG HCO3 (21-25) mmol/L ABG Total CO2 (19-24) mmol/L Hemoglobin (13.0-17.5) gm/dL Sodium 134 L (137-145) mmol/L BUN 21 H (9-20) mg/dL Glucose 129 H (74-99) mg/dL POC Glucose (mg/dL) 148 H 162 H (70-110) mg/dL Calcium 7.5 L (8.4-10.2) mg/dL 01/29/24 01/29/24 01/29/24 Range/Units 05:26 05:55 07:47 WBC 23.8 H 20.2 H (3.8-10.6) k/uL RBC 2.26 L 2.55 L (4.30-5.90) m/uL Hgb 6.6 L* 7.6 L (13.0-17.5) gm/dL Hct 22.3 L 24.3 L (39.0-53.0) % MCHC 29.5 L (31.0-37.0) g/dL RDW 16.3 H 16.3 H (11.5-15.5) % Neutrophils # 17.8 H 15.7 H (1.3-7.7) k/uL ABG pH (7.35-7.45) ABG pCO2 (35-45) mmHg ABG HCO3 (21-25) mmol/L ABG Total CO2 (19-24) mmol/L Hemoglobin (13.0-17.5) gm/dL Sodium (137-145) mmol/L BUN (9-20) mg/dL Glucose (74-99) mg/dL POC Glucose (mg/dL) 141 H (70-110) mg/dL Calcium (8.4-10.2) mg/dL 01/29/24 01/29/24 01/29/24 Range/Units 11:51 17:55 18:38 WBC (3.8-10.6) k/uL RBC (4.30-5.90) m/uL Hgb (13.0-17.5) gm/dL Hct (39.0-53.0) % MCHC (31.0-37.0) g/dL RDW (11.5-15.5) % Neutrophils # (1.3-7.7) k/uL ABG pH 7.18 L* (7.35-7.45) ABG pCO2 82 H* (35-45) mmHg ABG HCO3 30 H (21-25) mmol/L ABG Total CO2 33 H (19-24) mmol/L Hemoglobin 7.2 L (13.0-17.5) gm/dL Sodium (137-145) mmol/L BUN (9-20) mg/dL Glucose (74-99) mg/dL POC Glucose (mg/dL) 149 H 246 H (70-110) mg/dL Calcium (8.4-10.2) mg/dL Assessment and Plan Plan: PLAN: -At this time, patients J tube site fistula is mature. Output from around the J-tube site appears to be improving. Case was discussed with printer apprentice and as there is improved conditions of this tube, we will continue current treatment regimen until safer time to begin attempting tube feeds. -Wound VAC scheduled changes. -Continue supportive care -Continue TPN for nutrition support
--- NOTE | 2024-01-29 21:17 | P.PN ---
Subjective Progress Note Date: 01/29/24 January 22, 2024: ICU. Patient was on CPAP this morning. Plan was to take him to trach only this afternoon. Getting IV Precedex. Awake. Moves his head to command. Was able to move his right arm. Wound VAC remains in place. Right chest tube/pigtail catheter in place. Some air leak. Minimal output from the right RAYA drain. Secretions persist through the left J-tube site. at the bedside. Spoke to the psych social worker David. Looking into long-term placement. 01/23/24 Patient is evaluated in the ICU at the bedside. Feels anxious today, precedex is being weaned. He is awake alert. He is edematous. Abdominal wound vac in place. Right chest tube/pigtail in place. 55 ML of drainage overnight. Right sided RAYA drain. J tube in place. On TPN. He is pending approval for [facility] vs. [facility]. Blood work today reveals a sodium level of 131. Continues on IV Ciprofloxacin/ IV fluconazole. 01/24/2024 Patient remains in the intensive care unit as remains at the bedside. He was weaned off the Precedex today did receive a dose of Ativan this morning however his mood has much improved. Abdominal wound VAC in place with evidence of purulent drainage in the canister. He has had 15 mL of drainage overnight from the right sided chest tube. J-tube remains in place. He continues on TPN. He continues on IV ciprofloxacin and IV fluconazole with plans for repeat abdominal pelvis CT today by infectious disease and consider discontinuation of antibiotics afterwards. Sodium level today is 130. Still pending approval for discharge to LTAC versus [facility]. 01/25/2024 Patient remains in the intensive care unit he continues off IV Precedex at this time. Continues with TPN. Repeat chest abdomen pelvis CT completed yesterday which shows a decrease seen in the hydropneumothorax within the right lung base with drainage catheter there is no change in the bibasilar infiltrates and small left effusion. There is interval development of a dilated small bowel loop in the mid abdomen consistent with either a focal ileus or partial obstruction. There are findings suggestive of acute diverticulitis of the sigmoid colon with a small pericolic phlegmon abscess however is decreasing in the interval from compared in the prior study from 3.4 cm to 3 cm. There is moderate anasarca and the peritoneal dialysis catheter and small bowel drainage tube unchanged in position. Blood work today reveals a white blood cell count of 20.1, hemoglobin 8.3, sodium 131, BUN of 21, creatinine 0.66, magnesium 1.7. He is on IV Cipro. IV Flagyl was added today by infectious disease. Was made a full code at request of family. 01/26/2024 Patient remains in the ICU. More awake alert and oriented today. He continues on the trach collar. Sounds less congested. Continues on IV cipro and IV flagyl. White blood cell count better today at 16.3. Hgb 7.2. Sodium 130, potassium 3.4. Continues on TPN. 01/27/2024 Patient is seen in follow-up continues to be in the ICU with multiple consul tations following. Family at the bedside and patient is more awake although continues with bronchial congestion and frequent suctioning with the trach collar. Patient remains off Precedex. Patient continues on antibiotics for possible lung abscess that was positive for Pseudomonas with a persistent air leak. Minimal output of the pigtail catheter noted. FiO2 is 40% trach collar maintained on 10 L oxygen. Patient continues on TPN and will adjust accordingly per dietary and pharmacy. Overall prognosis remains extremely poor. Patient remains full code. Per nursing staff patient was denied from [facility] special[facility] with case management/social work following. 01/28/2024 Patient is eval in follow-up today in the intensive care unit. He had an axillary temp 101.6 for this reason a septic protocol was done including urinalysis blood cultures and viral panel. He remains on IV cipro and IV flagyl. Airleak to the chest tube remains to suction. He continues on a trach collar 40% FiO2 with oxygen at 8 L. He continues on TPN and lipids adjustments per dietary and pharmacy. We are currently not using the J-tube for feedings at this time. He has a wound VAC in place to the midline abdominal incision. He is more awake alert and oriented and less agitated. Sodium level today is 133. Renal function is within normal limits. 01/27/2024 Patient is evaluated today in the ICU with family at the bedside. He continues to have elevated temps. He is more lethargic. White count 20.2 today. Septic work up started. Repeat urinalysis not overly suggesting of infection. Viral panel negative. Chest xray today reveals patchy and confluent bilateral airspace disease similar to slightly worsened. Right-sided pleural catheter demonstrated. There is similar small right pleural effusion. He was started on IV vancomyin, IV meropenem and IV metronidazole. The cipro has been discontinued. Lactic acid 2.3. Sodium 134, renal function normal. Hgb 7.6. Tube feedings remain on hold. Not safe to restart and he continues on TPN/Lipids. REVIEW OF SYSTEMS: Unable to complete patient with increasing lethargy today. PHYSICAL EXAMINATION: GENERAL: The patient is alert and oriented x2, not in any acute distress. Well developed, ill-appearing, elderly appearing. Trach Collar with an FiO2 of 40%, 10 L O2. HEENT: Pupils are round and equally reacting to light. EOMI. No scleral icterus. No conjunctival pallor. Normocephalic, atraumatic. No pharyngeal erythema. No thyromegaly. CARDIOVASCULAR: S1 and S2 present. No murmurs, rubs, or gallops. PULMONARY: Chest is clear to auscultation, no wheezing or crackles. Diminished. ABDOMEN: Soft, nontender, nondistended, normoactive bowel sounds. No palpable organomegaly. MUSCULOSKELETAL: No joint swelling or deformity. EXTREMITIES: No cyanosis, clubbing, or pedal edema. Peripheral edema 1+ NEUROLOGICAL: Diffuse weakness throughout SKIN: No rashes. Stage 2 sacral decub Assessment -Worsening leukocytosis septic work up initiated. -Large superficial gastric antral ulceration involving the gastric antrum extending into the pylorus with gastric outlet obstruction. 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 Status post Jtube insertion and patient has been NPO. -Acute hypoxemic respiratory failure from aspiration pneumonia on admission requring mechanical ventilation. Now post tracheostomy. -Also Bacterial pneumonia and sepsis and septic shock present on admission with right lung abscess cultures showing citrobacter; pseudomonas, klebsiella. Status post bronch on 01/07/24. -Acute kidney injury. Possible ATN from hypotensive shock: Resolved -Breakdown of tracheostomy stoma site. Dressing in place -Acute pulmonary edema and fluid overload from hypoalbuminemic state and fluids from IV.: Has been getting Lasix and dialysis: Both held -Altered mentation. Possibly encephalopathy. Could be delirium. Was improved. -Generalized cerebral dysfunction on EEG; [place] on oral keppra -Critical care poly- Pedro neuropathy: Slow to respond -Gallstones, asymptomatic -Small l bowel perforation at site of jejunostomy tube tip with balloon..: Portion of small bowel resected. On November 24. New J-tube was placed.- drainage to gravity:-Now discontinued December 19: J-tube blocked. J-tube replaced on December 20 over wire December 21: Leaking around the J-tube site. Feeding held December 23: J feeding was started yesterday evening but again started leaking increasingly around the J-tube site-feeding held again December 24: J-tube feeding has been held. -Midline abdominal incision wound dehiscence midline wound Vac in place. -Acute recurrent atrial fibrillation-converted to sinus rhythm -Hypertension, currently hypotensive. Currently off pressor support. -Normocytic anemia likely to secondary underlying lymphoma. Also anemia of blood draw. Underlying iron deficiency; received PRBC x 6 units and IV iron. -Severe thrombocytopenia. Would consider coagulation disorder secondary to infection., In the setting of underlying lymphoma.: Fluctuating with infection. Currently resolved. -Acute blood loss anemia -Sacral stage II decub ulcer -GERD -Acute diarrhea secondary to tube feeding. C. difficile ruled out. Resolved. Tube feedings on hold. GI prophylaxis Full Code Remains off IV Precedex at this time. White blood cell count has been increasing up to 20.1 based off the abdominal pelvis chest CT results patient is been started on IV metronidazole in conjunction with IV Cipro and infectious diseases following closely. TPN lipids continue. Surgery recommending to continue holding off using the Jtube and to not change the position. Discussed CT results ileus vs. partial obstruction; per surgery this is not a concern at this time are likely just an ileus and to continue with the suppositories and TPN feedings. Chest tube remains in place, noted airleak and this has been placed to suction. RAYA drain was removed. Wound vac to the midline abdomen remains in place. Continue pressure offloading and barrier cream to the sacral decub. Tracheostomy in place and remains on the trach collar. Patient was denied going to [facility] special[facility] and per nursing staff and case management/social work, no safe facility planner excepting ECF or facility at this time. Overall prognosis is extremely poor and guarded at this time The impression and plan of care has been dictated by Carol Ulrich, Nurse Practitioner as directed. Dr. Jozef MD I have performed a history and physical examination and medical decision making of this patient, discussed the same with the dictator, and agree with the dictators assessment and plan as written, documented as a scribe. Based on total visit time, I have performed more than 50% of this visit. Objective - Vital Signs Vital signs: Vital Signs Temp 99.0 F 01/29/24 04:00 Pulse 95 01/29/24 09:10 Resp 25 H 01/29/24 04:00 BP 132/68 01/29/24 04:00 Pulse Ox 91 L 01/29/24 04:00 FiO2 60 01/29/24 08:56 Intake & Output 01/28/24 01/29/24 01/29/24 18:59 06:59 18:59 Intake Total 1086 1000 Output Total 840 630 10 Balance 246 370 -10 Weight 103.3 kg 103.2 kg Intake: Intake, IV Titration 1086 Amount Mvi, Adult No.4 with Vit 1086 K 10 ml Trace (Conc-1Ml/ Dose) 1 ml Parenteral Electrolytes 20 ml Sodium Acetate 64 meq Potassium Acetate 36 meq Magnesium Sulfate gm 1 gm Sodium Phosphate 9 mmol In Amino Acids 5 %/Dextrose 20 % 1,000 ml @ 90 mls/hr IV . BY DURATION [facility] Rx#: [id number] TPN/PPN 1000 TPN 1000 Output: Chest Tube Drainage 40 30 10 Chest Tube Right 40 30 10 Drainage 0 Medial Abdomen 0 Right Abdomen 0 Urine 800 600 Other: Voiding Method Indwelling Catheter Indwelling Catheter ABP, PAP, CO, CI - Last Documented Arterial Blood Pressure 173/76 - Labs CBC & Chem 7: 01/29/24 07:47 01/29/24 05:26 Labs: Abnormal Lab Results - Last 24 Hours (Table) 01/28/24 01/28/24 01/28/24 Range/Units 11:53 17:16 18:05 WBC (3.8-10.6) k/uL RBC (4.30-5.90) m/uL Hgb (13.0-17.5) gm/dL Hct (39.0-53.0) % MCHC (31.0-37.0) g/dL RDW (11.5-15.5) % Neutrophils # (1.3-7.7) k/uL Sodium (137-145) mmol/L BUN (9-20) mg/dL Glucose (74-99) mg/dL POC Glucose (mg/dL) 173 H 158 H (70-110) mg/dL Calcium (8.4-10.2) mg/dL Urine Protein 1+ H (Negative) Urine Blood Small H (Negative) Ur Leukocyte Esterase Large H (Negative) Urine RBC 13 H (0-5) /hpf Urine WBC 78 H (0-5) /hpf Urine WBC Clumps Few H (None) /hpf Amorphous Sediment Few H (None) /hpf Urine Bacteria Rare H (None) /hpf Hyaline Casts 3 H (0-2) /lpf Urine Mucus Rare H (None) /hpf Urine Yeast (Budding) Rare H (None) /hpf 01/28/24 01/29/24 01/29/24 Range/Units 23:26 01:00 05:26 WBC (3.8-10.6) k/uL RBC (4.30-5.90) m/uL Hgb (13.0-17.5) gm/dL Hct (39.0-53.0) % MCHC (31.0-37.0) g/dL RDW (11.5-15.5) % Neutrophils # (1.3-7.7) k/uL Sodium 134 L (137-145) mmol/L BUN 21 H (9-20) mg/dL Glucose 129 H (74-99) mg/dL POC Glucose (mg/dL) 148 H 162 H (70-110) mg/dL Calcium 7.5 L (8.4-10.2) mg/dL Urine Protein (Negative) Urine Blood (Negative) Ur Leukocyte Esterase (Negative) Urine RBC (0-5) /hpf Urine WBC (0-5) /hpf Urine WBC Clumps (None) /hpf Amorphous Sediment (None) /hpf Urine Bacteria (None) /hpf Hyaline Casts (0-2) /lpf Urine Mucus (None) /hpf Urine Yeast (Budding) (None) /hpf 01/29/24 01/29/24 01/29/24 Range/Units 05:26 05:55 07:47 WBC 23.8 H 20.2 H (3.8-10.6) k/uL RBC 2.26 L 2.55 L (4.30-5.90) m/uL Hgb 6.6 L* 7.6 L (13.0-17.5) gm/dL Hct 22.3 L 24.3 L (39.0-53.0) % MCHC 29.5 L (31.0-37.0) g/dL RDW 16.3 H 16.3 H (11.5-15.5) % Neutrophils # 17.8 H 15.7 H (1.3-7.7) k/uL Sodium (137-145) mmol/L BUN (9-20) mg/dL Glucose (74-99) mg/dL POC Glucose (mg/dL) 141 H (70-110) mg/dL Calcium (8.4-10.2) mg/dL Urine Protein (Negative) Urine Blood (Negative) Ur Leukocyte Esterase (Negative) Urine RBC (0-5) /hpf Urine WBC (0-5) /hpf Urine WBC Clumps (None) /hpf Amorphous Sediment (None) /hpf Urine Bacteria (None) /hpf Hyaline Casts (0-2) /lpf Urine Mucus (None) /hpf Urine Yeast (Budding) (None) /hpf Assessment and Plan Time with Patient: Less than 30
[2024-01-30] MEDS: MEROPENEM 1 GM in SODIUM CHLORIDE 0.9% 100 ML IVPB SCH (01:02)
[2024-01-30 01:42] LABS: Glucose,Whole Blood 106 mg/dL (70-110)
[2024-01-30 05:05] LABS: ABG Base Excess 4.2 mmol/L; ABG HCO3 31 mmol/L (21-25); ABG PCO2 59 mmHg (35-45); ABG PH 7.33 (7.35-7.45); ABG PO2 152 mmHg (83-108); ABG TCO2 33 mmol/L (19-24); Allen Test Performed? Yes
[2024-01-30 06:02] LABS: Glucose,Whole Blood 139 mg/dL (70-110)
[2024-01-30 06:50] LABS: Anisocytosis Slight; Basophils # (A) 0.1 k/uL (0-0.2); Basophils % (A) 0 %; Eosinophils # (A) 0.6 k/uL (0-0.7); Eosinophils % (A) 3 %; HCT 23.7 % (39.0-53.0); HGB 7.3 gm/dL (13.0-17.5); Hypochromasia Marked; Lymphocytes # (A) 1.7 k/uL (1.0-4.8); Lymphocytes % (A) 9 %; MCHC 30.8 g/dL (31.0-37.0); MCV 97.6 fL (80.0-100.0); Macrocytosis Slight; Mean Platelet Volume 7.9; Monocytes # (A) 0.9 k/uL (0-1.0); Monocytes % (A) 5 %; Neutrophils # (A) 15.8 k/uL (1.3-7.7); Neutrophils % (A) 82 %; Platelet Count 417 k/uL (150-450); RBC 2.43 m/uL (4.30-5.90); RDW 16.4 % (11.5-15.5); WBC 19.3 k/uL (3.8-10.6)
--- NOTE | 2024-01-30 06:54 | P.PN ---
Progress Note - Text Progress Note Date: 01/30/24 HISTORY OF PRESENT ILLNESS: No acute events overnight. PHYSICAL EXAM: VITAL SIGNS: Reviewed. GENERAL: frail, weak HEENT: Tracheostomy site clean dry and intact ABDOMEN: Soft. Nondistended. Midline incision with wound VAC in place and intact with granulation tissue. RAYA drain in place. RAYA tube with decrease in surrounding drainage ASSESSMENT: 1. 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 Status post J-tube placement and revision for small bowel obstruction 2. Abdominal wound dehiscence status post wound VAC placement 3. Status post tracheostomy PLAN: -At this time, patients J tube site fistula is mature and it is of no harm to the patient if the J tube has been pulled back as the patient has not been getting any tube feeds. Patients nutritional support will be from TPN. -Wound VAC scheduled changes. -Continue supportive care -Continue TPN for nutrition support Dick Ewing DO [facility] [phone]
[2024-01-30 07:03] LABS: African American GFR (CKD) >90 (>60 ml/min/1.73 sqM); Anion Gap 1 mmol/L; Blood Urea Nitrogen 25 mg/dL (9-20); Calcium 7.4 mg/dL (8.4-10.2); Carbon Dioxide 31 mmol/L (22-30); Chloride 103 mmol/L (98-107); Glucose 139 mg/dL (74-99); Non-African American GFR(CKD) >90 (>60 ml/min/1.73 sqM); Potassium 4.3 mmol/L (3.5-5.1); Sodium 135 mmol/L (137-145)
--- NOTE | 2024-01-30 09:28 | XR ---
EXAMINATION TYPE: XR chest 1V portable DATE OF EXAM: 01/30/2024 8:56 AM COMPARISON: 01/29/2024 CLINICAL INDICATION: Male, 73 years old with history of mechanical ventilation, FINDINGS: Mixed infiltrates persist throughout both lung ramirez with mild improved aeration at the right lung b ase. No pneumothorax present. No change in bibasilar opacities. Stable appearance of the cardio-mediastinal structures at this time. Pleural effusion unchanged. IMPRESSION: 1. Mixed infiltrates persist throughout both lung ramirez with mild improved aeration at the right williams ng base. No pneumothorax present. Clinical correlation and follow up until resolution is recommended. [facility], , 01/30/2024 9:25 AM
--- NOTE | 2024-01-30 09:55 | P.PN ---
Subjective Progress Note Date: 01/29/24 Principal diagnosis: Reason for follow-up is pneumonia and diverticulitis Patient is 73-year-old with male initial presentation to the hospital on 11/12/2023 after the patient did have aspiration while undergoing elective endoscopy, diagnosed with a non-Hodgkin lymphoma subsequently did have exploratory laparotomy for perforated small bowel, abdominal washout and feeding jejunostomy tube patient did require dialysis catheter placement for dialysis during this hospital stay which was subsequently discontinued, and tracheostomy for respiratory failure. On today's evaluation that is 01/29/2024, Patient did have a low-grade fever of 100.5 F last evening and also temperature of 101.6 yesterday afternoon patient did have worsening of respiratory status for the patient has been intubated patient is tachycardic but hemodynamically stable currently on 75% FiO2. Patient white count is up to 20.2 creatinine 0.67 Objective - Vital Signs Vital signs: Vital Signs Temp 98.9 F 01/29/24 08:00 Pulse 96 01/29/24 12:18 Resp 27 H 01/29/24 12:00 BP 150/99 01/29/24 08:00 Pulse Ox 100 01/29/24 12:00 FiO2 100 01/29/24 11:50 Intake & Output 01/28/24 01/29/24 01/29/24 18:59 06:59 18:59 Intake Total 1086 2075 5.418 Output Total 840 630 20 Balance 246 1445 -14.582 Weight 103.3 kg 103.2 kg Intake: Intake, IV Titration 1086 1075 5.418 Amount Dexmedetomidine/0.9% NaCl 3.870 (Pmx) 400 mcg In Empty Bag 1 bag @ 0.2 MCG/KG/HR 5.16 mls/hr IV .[id number] [facility] Rx#:[id number] Mvi, Adult No.4 with Vit 1086 K 10 ml Trace (Conc-1Ml/ Dose) 1 ml Parenteral Electrolytes 20 ml Sodium Acetate 64 meq Potassium Acetate 36 meq Magnesium Sulfate gm 1 gm Sodium Phosphate 9 mmol In Amino Acids 5 %/Dextrose 20 % 1,000 ml @ 90 mls/hr IV . BY DURATION [facility] Rx#: [id number] Parenteral Electrolytes 1075 20 ml Sodium Acetate 64 meq Potassium Acetate 36 meq Magnesium Sulfate gm 1 gm Sodium Phosphate 9 mmol In Amino Acids 5 %/ Dextrose 20 % 1,000 ml @ 90 mls/hr IV .BY DURATION [facility] Rx#:[id number] propofoL 1,000 mg In 1.548 Empty Bag 1 bag @ 15 MCG/ KG/MIN 9.288 mls/hr IV . [id number] [facility] Rx#:[id number] TPN/PPN 1000 TPN 1000 Output: Chest Tube Drainage 40 30 20 Chest Tube Right 40 30 20 Drainage 0 Medial Abdomen 0 Right Abdomen 0 Urine 800 600 Other: Voiding Method Indwelling Catheter Indwelling Catheter Indwelling Catheter ABP, PAP, CO, CI - Last Documented Arterial Blood Pressure 173/76 - Exam GENERAL DESCRIPTION: An elderly male intubated with trach RESPIRATORY SYSTEM: Unlabored breathing , coarse breath sounds anteriorly HEART: S1 S2 regular rate and rhythm , ABDOMEN: Soft , no tenderness EXTREMITIES: No edema feet - Labs CBC & Chem 7: 01/30/24 06:16 01/30/24 06:16 Labs: Abnormal Lab Results - Last 24 Hours (Table) 01/28/24 01/28/24 01/28/24 Range/Units 17:16 18:05 23:26 WBC (3.8-10.6) k/uL RBC (4.30-5.90) m/uL Hgb (13.0-17.5) gm/dL Hct (39.0-53.0) % MCHC (31.0-37.0) g/dL RDW (11.5-15.5) % Neutrophils # (1.3-7.7) k/uL Sodium (137-145) mmol/L BUN (9-20) mg/dL Glucose (74-99) mg/dL POC Glucose (mg/dL) 158 H 148 H (70-110) mg/dL Calcium (8.4-10.2) mg/dL Urine Protein 1+ H (Negative) Urine Blood Small H (Negative) Ur Leukocyte Esterase Large H (Negative) Urine RBC 13 H (0-5) /hpf Urine WBC 78 H (0-5) /hpf Urine WBC Clumps Few H (None) /hpf Amorphous Sediment Few H (None) /hpf Urine Bacteria Rare H (None) /hpf Hyaline Casts 3 H (0-2) /lpf Urine Mucus Rare H (None) /hpf Urine Yeast (Budding) Rare H (None) /hpf 01/29/24 01/29/24 01/29/24 Range/Units 01:00 05:26 05:26 WBC 23.8 H (3.8-10.6) k/uL RBC 2.26 L (4.30-5.90) m/uL Hgb 6.6 L* (13.0-17.5) gm/dL Hct 22.3 L (39.0-53.0) % MCHC 29.5 L (31.0-37.0) g/dL RDW 16.3 H (11.5-15.5) % Neutrophils # 17.8 H (1.3-7.7) k/uL Sodium 134 L (137-145) mmol/L BUN 21 H (9-20) mg/dL Glucose 129 H (74-99) mg/dL POC Glucose (mg/dL) 162 H (70-110) mg/dL Calcium 7.5 L (8.4-10.2) mg/dL Urine Protein (Negative) Urine Blood (Negative) Ur Leukocyte Esterase (Negative) Urine RBC (0-5) /hpf Urine WBC (0-5) /hpf Urine WBC Clumps (None) /hpf Amorphous Sediment (None) /hpf Urine Bacteria (None) /hpf Hyaline Casts (0-2) /lpf Urine Mucus (None) /hpf Urine Yeast (Budding) (None) /hpf 01/29/24 01/29/24 01/29/24 Range/Units 05:55 07:47 11:51 WBC 20.2 H (3.8-10.6) k/uL RBC 2.55 L (4.30-5.90) m/uL Hgb 7.6 L (13.0-17.5) gm/dL Hct 24.3 L (39.0-53.0) % MCHC (31.0-37.0) g/dL RDW 16.3 H (11.5-15.5) % Neutrophils # 15.7 H (1.3-7.7) k/uL Sodium (137-145) mmol/L BUN (9-20) mg/dL Glucose (74-99) mg/dL POC Glucose (mg/dL) 141 H 149 H (70-110) mg/dL Calcium (8.4-10.2) mg/dL Urine Protein (Negative) Urine Blood (Negative) Ur Leukocyte Esterase (Negative) Urine RBC (0-5) /hpf Urine WBC (0-5) /hpf Urine WBC Clumps (None) /hpf Amorphous Sediment (None) /hpf Urine Bacteria (None) /hpf Hyaline Casts (0-2) /lpf Urine Mucus (None) /hpf Urine Yeast (Budding) (None) /hpf Assessment and Plan (1) Sepsis Current Visit: Yes Status: Acute Code(s): A41.9 - SEPSIS, UNSPECIFIED ORGANISM SNOMED Code(s): 43776795 (2) Pneumonia Current Visit: Yes Status: Acute Code(s): J18.9 - PNEUMONIA, UNSPECIFIED ORGANISM SNOMED Code(s): 910930868 (3) Bacteremia Current Visit: Yes Status: Acute Code(s): R78.81 - BACTEREMIA SNOMED Code(s): 5967738 Plan: 1patient with complicated pneumonia and lung abscess on the CT status post drainage catheter placement by interventional radiology subsequently did have purulent pleural fluid which has been cultured did have a chest tube and is growing Pseudomonas with slightly different sensitivity from the sputum Pseudomonas aeruginosa. 2-patient also have evidence of retro vesicular abscess on the CT abdominal pelvis, this has been discussed with the surgical team on the case in person however mention patient would not be able to tolerate any further surgery. 3patient CT chest also showed evidence of pulmonary abscess status post chest tube placement, pleural fluid cultures are growing Pseudomonas aeruginosa that is sensitive to Zerbaxa as well as tobramycin and Cipro and also growing Alejandra albicans for the patient has received adequate Cipro and Diflucan 4patient did have a follow-up CT of the chest abdominal pelvis on 01/24/2024 reporting overall decrease in the hydropneumothorax on the right side and new findings of acute diverticulitis with surrounding phlegmon 5 the patient did have a new fever also noticed to have worsening of his respiratory status concerning for possible worsening pneumonia repeat sputum and blood culture have been requested vancomycin will be added to the Cipro and Flagyl regimen and will monitor clinical course closely prognosis remains to be guarded Dictation was produced using [employer] software. please excuse any gramm atical, word or spelling errors. Time with Patient: Less than 30
[2024-01-30 11:49] LABS: Glucose,Whole Blood 174 mg/dL (70-110)
--- NOTE | 2024-01-30 13:11 | P.PN ---
Subjective Progress Note Date: 01/30/24 January 22, 2024: ICU. Patient was on CPAP this morning. Plan was to take him to trach only this afternoon. Getting IV Precedex. Awake. Moves his head to command. Was able to move his right arm. Wound VAC remains in place. Right chest tube/pigtail catheter in place. Some air leak. Minimal output from the right RAYA drain. Secretions persist through the left J-tube site. at the bedside. Spoke to the social worker psychiatric David. Looking into long-term placement. 01/23/24 Patient is evaluated in the ICU at the bedside. Feels anxious today, precedex is being weaned. He is awake alert. He is edematous. Abdominal wound vac in place. Right chest tube/pigtail in place. 55 ML of drainage overnight. Right sided RAYA drain. J tube in place. On TPN. He is pending approval for [facility] vs. [facility]. Blood work today reveals a sodium level of 131. Continues on IV Ciprofloxacin/ IV fluconazole. 01/24/2024 Patient remains in the intensive care unit as remains at the bedside. He was weaned off the Precedex today did receive a dose of Ativan this morning however his mood has much improved. Abdominal wound VAC in place with evidence of purulent drainage in the canister. He has had 15 mL of drainage overnight from the right sided chest tube. J-tube remains in place. He continues on TPN. He continues on IV ciprofloxacin and IV fluconazole with plans for repeat abdominal pelvis CT today by infectious disease and consider discontinuation of antibiotics afterwards. Sodium level today is 130. Still pending approval for discharge to LTAC versus [facility]. 01/25/2024 Patient remains in the intensive care unit he continues off IV Precedex at this time. Continues with TPN. Repeat chest abdomen pelvis CT completed yesterday which shows a decrease seen in the hydropneumothorax within the right lung base with drainage catheter there is no change in the bibasilar infiltrates and small left effusion. There is interval development of a dilated small bowel loop in the mid abdomen consistent with either a focal ileus or partial obstruction. There are findings suggestive of acute diverticulitis of the sigmoid colon with a small pericolic phlegmon abscess however is decreasing in the interval from compared in the prior study from 3.4 cm to 3 cm. There is moderate anasarca and the peritoneal dialysis catheter and small bowel drainage tube unchanged in position. Blood work today reveals a white blood cell count of 20.1, hemoglobin 8.3, sodium 131, BUN of 21, creatinine 0.66, magnesium 1.7. He is on IV Cipro. IV Flagyl was added today by infectious disease. Was made a full code at request of family. 01/26/2024 Patient remains in the ICU. More awake alert and oriented today. He continues on the trach collar. Sounds less congested. Continues on IV cipro and IV flagyl. White blood cell count better today at 16.3. Hgb 7.2. Sodium 130, potassium 3.4. Continues on TPN. 01/27/2024 Patient is seen in follow-up continues to be in the ICU with multiple consul tations following. Family at the bedside and patient is more awake although continues with bronchial congestion and frequent suctioning with the trach collar. Patient remains off Precedex. Patient continues on antibiotics for possible lung abscess that was positive for Pseudomonas with a persistent air leak. Minimal output of the pigtail catheter noted. FiO2 is 40% trach collar maintained on 10 L oxygen. Patient continues on TPN and will adjust accordingly per dietary and pharmacy. Overall prognosis remains extremely poor. Patient remains full code. Per nursing staff patient was denied from [facility] with case management/social work following. 01/28/2024 Patient is eval in follow-up today in the intensive care unit. He had an axillary temp 101.6 for this reason a septic protocol was done including urinalysis blood cultures and viral panel. He remains on IV cipro and IV flagyl. Airleak to the chest tube remains to suction. He continues on a trach collar 40% FiO2 with oxygen at 8 L. He continues on TPN and lipids adjustments per dietary and pharmacy. We are currently not using the J-tube for feedings at this time. He has a wound VAC in place to the midline abdominal incision. He is more awake alert and oriented and less agitated. Sodium level today is 133. Renal function is within normal limits. 01/29/2024 Patient is evaluated today in the ICU with family at the bedside. He continues to have elevated temps. He is more lethargic. White count 20.2 today. Septic work up started. Repeat urinalysis not overly suggesting of infection. Viral panel negative. Chest xray today reveals patchy and confluent bilateral airspace disease similar to slightly worsened. Right-sided pleural catheter demonstrated. There is similar small right pleural effusion. He was started on IV vancomyin, IV meropenem and IV metronidazole. The cipro has been discontinued. Lactic acid 2.3. Sodium 134, renal function normal. Hgb 7.6. Tube feedings remain on hold. Not safe to restart and he continues on TPN/Lipids. 01/30/2024 Patient evaluated today in follow up. Remains in the ICU. Underwent bronchoscopy and repair of a tear in the tracheostomy cuff. Deep sputum culture pending. Patient remains on the mechanical ventilator with ABGs today showing pH level of 0.33, pCO2 of 59, pO2 of 152, HCO3 of 41, total CO2 of 33, hemoglobin 6.6. Lactic acid has normalized. White blood cell count 19.3 today hemoglobin 7.3. Patient is continued on IV propofol as well as backs. Continues on antibiotics in the form of IV vancomycin, IV meropenem, IV metronidazole. Continues on TPN lipids. Chest xray improved throughout both lung ramirez with mild improved aeration at the right lung base. No pneumothorax present. Right-sided chest tube remains in place to suction. REVIEW OF SYSTEMS: Unable to complete patient with increasing lethargy today. PHYSICAL EXAMINATION: GENERAL: The patient is alert and oriented x2, not in any acute distress. Well developed, ill-appearing, elderly appearing. Trach Collar with an FiO2 of 40%, 10 L O2. HEENT: Pupils are round and equally reacting to light. EOMI. No scleral icterus. No conjunctival pallor. Normocephalic, atraumatic. No pharyngeal erythema. No thyromegaly. CARDIOVASCULAR: S1 and S2 present. No murmurs, rubs, or gallops. PULMONARY: Chest is clear to auscultation, no wheezing or crackles. Diminished. ABDOMEN: Soft, nontender, nondistended, normoactive bowel sounds. No palpable organomegaly. MUSCULOSKELETAL: No joint swelling or deformity. EXTREMITIES: No cyanosis, clubbing, or pedal edema. Peripheral edema 1+ NEUROLOGICAL: Diffuse weakness throughout SKIN: No rashes. Stage 2 sacral decub Assessment -Worsening leukocytosis septic work up initiated. -Large superficial gastric antral ulceration involving the gastric antrum extending into the pylorus with gastric outlet obstruction. 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 Status post Jtube insertion and patient has been NPO. -Acute hypoxemic respiratory failure from aspiration pneumonia on admission requring mechanical ventilation. Now post tracheostomy. -Also Bacterial pneumonia and sepsis and septic shock present on admission with right lung abscess cultures showing citrobacter; pseudomonas, klebsiella. Status post bronch on 01/07/24. -Acute kidney injury. Possible ATN from hypotensive shock: Resolved -Breakdown of tracheostomy stoma site. Dressing in place -Acute pulmonary edema and fluid overload from hypoalbuminemic state and fluids from IV.: Has been getting Lasix and dialysis: Both held -Altered mentation. Possibly encephalopathy. Could be delirium. Was improved. -Generalized cerebral dysfunction on EEG; [place] on oral keppra -Critical care poly- Pedro neuropathy: Slow to respond -Gallstones, asymptomatic -Small l bowel perforation at site of jejunostomy tube tip with balloon..: Portion of small bowel resected. On November 24. New J-tube was placed.- drainage to gravity:-Now discontinued December 19: J-tube blocked. J-tube replaced on December 20 over wire December 21: Leaking around the J-tube site. Feeding held December 23: J feeding was started yesterday evening but again started leaking increasingly around the J-tube site-feeding held again December 24: J-tube feeding has been held. -Midline abdominal incision wound dehiscence midline wound Vac in place. -Acute recurrent atrial fibrillation-converted to sinus rhythm -Hypertension, currently hypotensive. Currently off pressor support. -Normocytic anemia likely to secondary underlying lymphoma. Also anemia of blood draw. Underlying iron deficiency; received PRBC x 6 units and IV iron. -Severe thrombocytopenia. Would consider coagulation disorder secondary to infection., In the setting of underlying lymphoma.: Fluctuating with infection. Currently resolved. -Acute blood loss anemia -Sacral stage II decub ulcer -GERD -Acute diarrhea secondary to tube feeding. C. difficile ruled out. Resolved. Tube feedings on hold. GI prophylaxis Full Code Patient is now post bronchoscopy and tracheostomy tube replacement he continues today on the mechanical ventilator and under IV sedation. White blood cell count 19 today based off the abdominal pelvis chest CT results patient is been started on IV metronidazole in conjunction with IV vancomycin and IV meropenem. TPN lipids continue. Surgery recommending to continue holding off using the Jtube and to not change the position. Discussed CT results ileus vs. partial obstruction; per surgery this is not a concern at this time are likely just an ileus and to continue with the suppositories and TPN feedings. Chest tube remains in place, noted airleak and this has been placed to suction. RAYA drain was removed. Wound vac to the midline abdomen remains in place. Continue pr essure offloading and barrier cream to the sacral decub. Tracheostomy in place and remains on the trach collar. Patient was denied going to [facility] and per nursing staff and case management/social work, no safe assistant media planner excepting ECF or facility at this time. Overall prognosis is extremely poor and guarded at this time. The impression and plan of care has been dictated by Carol Ulrich, Nurse Practitioner as directed. Dr. Jozef MD I have performed a history and physical examination and medical decision making of this patient, discussed the same with the dictator, and agree with the dictators assessment and plan as written, documented as a scribe. Based on total visit time, I have performed more than 50% of this visit. Objective - Vital Signs Vital signs: Vital Signs Temp 98.1 F 01/29/24 20:00 Pulse 100 01/30/24 07:54 Resp 28 H 01/30/24 07:00 BP 115/74 01/30/24 07:00 Pulse Ox 99 01/30/24 07:00 FiO2 75 01/30/24 07:42 Intake & Output 01/29/24 01/30/24 01/30/24 18:59 06:59 18:59 Intake Total 2433.420 2569.247 Output Total 551 1245 Balance 5057.176 4075.247 Weight 104.1 kg Intake: IV 980 2300 0.9 Normal Saline @ KVO 130 220 Ciprofloxacin/Dextrose 200 Pmx 400 mg In Dextrose/ Water 1 200ml.bag @ 200 mls/hr IVPB Q8H [facility] Rx#: [id number] IV Bolus 1000 TPN 450 1080 metroNIDAZOLE-NS PMX 500 200 mg In Saline 1 100ml.bag @ 100 mls/hr IVPB Q8H [facility] Rx#:[id number] Intake, IV Titration 1183.420 269.247 Amount Cisatracurium 200 mg In 12.848 149.949 Sodium Chloride 0.9% 180 ml @ 1 MCG/KG/MIN 6.192 mls/hr IV .Q24H [facility] Rx#: [id number] Dexmedetomidine/0.9% NaCl 3.870 (Pmx) 400 mcg In Empty Bag 1 bag @ 0.2 MCG/KG/HR 5.16 mls/hr IV .[id number] [facility] Rx#:[id number] Mvi, Adult No.4 with Vit 1086 K 10 ml Trace (Conc-1Ml/ Dose) 1 ml Parenteral Electrolytes 20 ml Sodium Acetate 64 meq Potassium Acetate 36 meq Magnesium Sulfate gm 1 gm Sodium Phosphate 9 mmol In Amino Acids 5 %/Dextrose 20 % 1,000 ml @ 90 mls/hr IV . BY DURATION [facility] Rx#: [id number] propofoL 1,000 mg In 80.702 119.298 Empty Bag 1 bag @ 15 MCG/ KG/MIN 9.288 mls/hr IV . [id number] [facility] Rx#:[id number] TPN/PPN 270 TPN 270 Output: Chest Tube Drainage 100 10 Chest Tube Right 100 10 Urine 450 1235 Stool 1 Other: Voiding Method Indwelling Catheter Indwelling Catheter ABP, PAP, CO, CI - Last Documented Arterial Blood Pressure 173/76 - Labs CBC & Chem 7: 01/30/24 06:16 01/30/24 06:16 Labs: Abnormal Lab Results - Last 24 Hours (Table) 01/29/24 01/29/24 01/29/24 Range/Units 11:51 17:55 18:38 WBC (3.8-10.6) k/uL RBC (4.30-5.90) m/uL Hgb (13.0-17.5) gm/dL Hct (39.0-53.0) % MCHC (31.0-37.0) g/dL RDW (11.5-15.5) % Neutrophils # (1.3-7.7) k/uL ABG pH 7.18 L* (7.35-7.45) ABG pCO2 82 H* (35-45) mmHg ABG pO2 (83-108) mmHg ABG HCO3 30 H (21-25) mmol/L ABG Total CO2 33 H (19-24) mmol/L ABG O2 Saturation (94-97) % Hemoglobin 7.2 L (13.0-17.5) gm/dL Sodium (137-145) mmol/L Carbon Dioxide (22-30) mmol/L BUN (9-20) mg/dL Glucose (74-99) mg/dL POC Glucose (mg/dL) 149 H 246 H (70-110) mg/dL Plasma Lactic Acid Hector (0.7-2.0) mmol/L Calcium (8.4-10.2) mg/dL 01/29/24 01/30/24 01/30/24 Range/Units 20:26 01:10 05:03 WBC (3.8-10.6) k/uL RBC (4.30-5.90) m/uL Hgb (13.0-17.5) gm/dL Hct (39.0-53.0) % MCHC (31.0-37.0) g/dL RDW (11.5-15.5) % Neutrophils # (1.3-7.7) k/uL ABG pH 7.33 L (7.35-7.45) ABG pCO2 59 H (35-45) mmHg ABG pO2 152 H (83-108) mmHg ABG HCO3 31 H (21-25) mmol/L ABG Total CO2 33 H (19-24) mmol/L ABG O2 Saturation 100.0 H (94-97) % Hemoglobin 6.6 L* (13.0-17.5) gm/dL Sodium (137-145) mmol/L Carbon Dioxide (22-30) mmol/L BUN (9-20) mg/dL Glucose (74-99) mg/dL POC Glucose (mg/dL) (70-110) mg/dL Plasma Lactic Acid Hector 2.3 H* 2.1 H* (0.7-2.0) mmol/L Calcium (8.4-10.2) mg/dL 01/30/24 01/30/24 01/30/24 Range/Units 06:00 06:16 06:16 WBC 19.3 H (3.8-10.6) k/uL RBC 2.43 L (4.30-5.90) m/uL Hgb 7.3 L (13.0-17.5) gm/dL Hct 23.7 L (39.0-53.0) % MCHC 30.8 L (31.0-37.0) g/dL RDW 16.4 H (11.5-15.5) % Neutrophils # 15.8 H (1.3-7.7) k/uL ABG pH (7.35-7.45) ABG pCO2 (35-45) mmHg ABG pO2 (83-108) mmHg ABG HCO3 (21-25) mmol/L ABG Total CO2 (19-24) mmol/L ABG O2 Saturation (94-97) % Hemoglobin (13.0-17.5) gm/dL Sodium 135 L (137-145) mmol/L Carbon Dioxide 31 H (22-30) mmol/L BUN 25 H (9-20) mg/dL Glucose 139 H (74-99) mg/dL POC Glucose (mg/dL) 139 H (70-110) mg/dL Plasma Lactic Acid Hector (0.7-2.0) mmol/L Calcium 7.4 L (8.4-10.2) mg/dL Microbiology - Last 24 Hours (Table) 01/29/24 13:40 Gram Stain - Preliminary Sputum 01/28/24 15:40 Blood Culture - Preliminary Blood Assessment and Plan Time with Patient: Less than 30
--- NOTE | 2024-01-30 13:45 | P.PN ---
Subjective Progress Note Date: 01/30/24 On today's evaluation of 01/27/2024, the patient remains on a trach collar airfit 40% with a flow of 10 L. No significant respiratory distress. Awake and alert and communicating. Profound weakness although is able to move all 4 extremities with essentially profound weakness in the motor function is 2 out of 5 in all 4 extremities. The patient has a right-sided pigtail catheter. There is ongoing episodic air leak and the output from the right sided chest has been only 10 cc over the past 24 hours. The follow-up chest x-ray showed interval improvement in the right-sided pleural effusion and there is residual consolidation bilaterally as the patient is being treated for pseudomonal pneumonia. Sputum samples from 01/07/2024 was again positive for Pseudomonas aeruginosa and the patient remains on IV ciprofloxacin. The patient remains NPO. The patient remains on TPN for nutritional support and TPN is running at a rate of 90 cc an hour. He has an adequate urine output. The most recent CAT scan of the abdomen and pelvis from 01/25/2024 showed interval development of a dilated small bowel loop in the mid abdomen consistent with either focal ileus versus a partial obstruction. There is also findings suggestive of acute diverticulitis of the sigmoid colon with small pericolic phlegmon/abscess and this has been decreasing in size measuring previously 3.4 cm in size and currently measuring 3 cm in size. Continues to have moderate anasarca. The patient also has decreased right-sided hydropneumothorax on the right side and persistent bilateral pulmonary consolidation. Overall CAT scan findings of the chest have improved. Her white cell count is 14.7. Hemoglobin 7.8. Platelet count of 376. BUN is 19 with a creatinine of 0.5. Sodium is at 132 and a potassium level is at 3.9. The magnesium is at 1.9. Phosphorus is 3.3. Calcium is at 7.2. The patient is having some ongoing leaks around the J-tube. He is on TPN for nutritional support and remains NPO. He is on IV Flagyl in addition. Insulin is in the form of sliding scale coverage. On 01/28/2024, clinically stable and unchanged. Remains on 40% trach collar,, comfortable, communicating, motor function is still weak in all 4 extremities and unchanged compared to yesterday. No significant leaks around the J-tube. RAYA drain is still in place in the right lower quadrant and the output is minimal at this point in time. Wound VAC is also in place. There is still ongoing air leak for the pigtail catheter in his right lung and output has been minimal in the order of 10 cc over the past 12 hours. Remains on IV Cipro. Remains on IV Flagyl. Remains on TPN for nutritional support. Blood work is showing a sodium level of 133, potassium of 4.3, BUN is 20 with a creatinine of 0.6. CBC is still pending and the most recent hemoglobin is at 7.8. On 01/29/2024, the patient's condition is decompensated. Earlier this morning, the patient was found to be in more respiratory distress. Overnight, he was bender ving episodes of hypoglycemia and the patient was placed on 80% trach collar. Later on during the morning, the patient decompensated further. A repeat chest x-ray was done and the patient was found to have patchy confluent bilateral airspace disease with worsening especially on the left. The patient has a right-sided pigtail catheter in place. No evidence of any air leak. Output remains minimal from the pigtail catheter. Noted with those changes, the patient was resedated. Initially was started on Precedex and later on to propofol as the patient was quite tachypneic and is synchronous with the mechanical ventilator. He was placed on a control mode with rate of 16, TV 500, PEEP of 10 with an FiO2 of 100%. Subsequently, he started having significant amount of leak around the tracheostomy tube and he was not returning volumes back. I did a bedside tracheostomy tube exchange and inserted another Shiley #8 tracheostomy tube catheter. Following that, I performed a bronchoscopy and obtain a bronchial lavage of the lingula as the patient had worsening in airspace disease specially on the left. Meanwhile, the patient remains on IV cefepime. The patient remains on Flagyl. Remains hemodynamically stable. Cardiac rhythm is sinus tachycardia. Remains on TPN for nutritional shipley pport at a rate of 90. The RAYA drain was removed yesterday by the surgical team. There is no interval increase in the leaks around the J-tube. He is not receiving enteral feeding for now. His white cell count currently is up to 20 with a hemoglobin 7.6 and a platelet count of 387. Electrolytes from today shows a BUN of 21 with a creatinine of 0.6. Sodium levels at 134 with a potassium level of 4.2, bicarb of 25. 01/30/2024, the patient is on the mechanical ventilator, tracheostomy tube has been exchanged yesterday and there is no significant leaks around the tracheostomy tube. The patient is sedated with propofol running at 30 mcg/kg/min and the patient is also on Nimbex at 2 mcg. He is on assist-control mode with rate of 28, tidal volume of 500, FiO2 of 75% with a PEEP of 10. Blood gas showed a pH of 7.33 with a pCO2 of 59 and pO2 of 152. Chest x-ray shows worsening in consolidations bilaterally. Bronchoscopy endobronchial lavage of the left upper lobe/lingula was done. Results are still pending. Currently on broad-spectrum antibiotic coverage with a combination of meropenem, vancomycin and Flagyl. Remains on TPN for nutritional support at a rate of 90 cc an hour. Fluid balance is +3.2 L over the past 24 hours. His procalcitonin level is at 0.4. Rest of the labs was reviewed and the white cell count remains elevated at 19.3, hemoglobin 7.3, sodium is at 135, BUN 25 with a creatinine of 0.6. Potassium is at 3.4. Pigtail catheter still present in his right lung. Output is minimal and there is no air leak. Chest x-ray shows mixed infiltrates bilaterally and there is considerable amount of consolidation involving the left lung. No significant drainage around the J she open the patient has a wound VAC. RAYA drain has been removed. Objective - Vital Signs Vital signs: Vital Signs Temp 97.7 F 01/30/24 08:00 Pulse 105 H 01/30/24 09:00 Resp 28 H 01/30/24 09:00 BP 120/74 01/30/24 09:00 Pulse Ox 100 01/30/24 09:00 FiO2 75 01/30/24 08:00 Intake & Output 01/29/24 01/30/24 01/30/24 18:59 06:59 18:59 Intake Total 2433.420 2569.247 390.847 Output Total 551 1245 175 Balance 4401.049 6553.247 215.847 Weight 104.1 kg Intake: IV 980 2300 40 0.9 Normal Saline @ KVO 130 220 40 Ciprofloxacin/Dextrose 200 Pmx 400 mg In Dextrose/ Water 1 200ml.bag @ 200 mls/hr IVPB Q8H [facility] Rx#: [id number] IV Bolus 1000 TPN 450 1080 metroNIDAZOLE-NS PMX 500 200 mg In Saline 1 100ml.bag @ 100 mls/hr IVPB Q8H [facility] Rx#:[id number] Intake, IV Titration 1183.420 269.247 149.847 Amount Cisatracurium 200 mg In 12.848 149.949 149.847 Sodium Chloride 0.9% 180 ml @ 1 MCG/KG/MIN 6.192 mls/hr IV .Q24H [facility] Rx#: [id number] Dexmedetomidine/0.9% NaCl 3.870 (Pmx) 400 mcg In Empty Bag 1 bag @ 0.2 MCG/KG/HR 5.16 mls/hr IV .[id number] [facility] Rx#:[id number] Mvi, Adult No.4 with Vit 1086 K 10 ml Trace (Conc-1Ml/ Dose) 1 ml Parenteral Electrolytes 20 ml Sodium Acetate 64 meq Potassium Acetate 36 meq Magnesium Sulfate gm 1 gm Sodium Phosphate 9 mmol In Amino Acids 5 %/Dextrose 20 % 1,000 ml @ 90 mls/hr IV . BY DURATION [facility] Rx#: [id number] propofoL 1,000 mg In 80.702 119.298 Empty Bag 1 bag @ 15 MCG/ KG/MIN 9.288 mls/hr IV . [id number] [facility] Rx#:[id number] TPN/PPN 270 180 TPN 270 180 Lipid 21 Fat Emulsion 20% 250 ml 21 In Empty Bag 1 bag @ 21 mls/hr IV TuThSa@0900 [facility] Rx#:[id number] Output: Chest Tube Drainage 100 10 Chest Tube Right 100 10 Urine 450 1235 175 Stool 1 Other: Voiding Method Indwelling Catheter Indwelling Catheter Indwelling Catheter ABP, PAP, CO, CI - Last Documented Arterial Blood Pressure 173/76 - Exam The patient was sedated and he was quite asynchronous on mechanical ventilator. He is currently on a combination of propofol and Nimbex. HEENT examination is grossly unremarkable. Mucous membranes are moist. No oral lesions.. The patient also has a tracheostomy tube in place and the patient has a #8 Shiley tracheostomy tube. Cardiac exam revealed the PMI to be normally situated and sized. The rhythm was regular and no extrasystoles were noted during several minutes of auscultation. The first and second heart sounds were normal and physiologic splitting of the second heart sound was noted. There were no murmurs, rubs, clicks, or gallops. The patient is in sinus tachycardia. Lungs reveal mild scattered rhonchi. No wheezes or crackles. Breath sounds equal. Diminished breath sound lung base bilaterally. Pigtail catheter in the right chest posteriorly located with positive output and positive airleak on the Pleur-evac. Abdomen distended without bowel sounds. J-tube is noted. Mid abdominal wound is covered with a wound VAC. Output from the wound VAC is minimal at this point in time. And underlying wound is rather clean. J tube remains in place. Some leaks around the tube noted. The RAYA drain has been removed. Extremities are intact. No cyanosis clubbing trace edema lower extremities bilaterally Skin is without rash or lesion. The wound at the Mediport site is dry and the area has been sutured and the site is clean for now. Neurologic profound weakness in all 4 extremities and the patient is currently on sedation. - Labs CBC & Chem 7: 01/30/24 06:16 01/30/24 06:16 Labs: Abnormal Lab Results - Last 24 Hours (Table) 01/29/24 01/29/24 01/29/24 Range/Units 11:51 17:55 18:38 WBC (3.8-10.6) k/uL RBC (4.30-5.90) m/uL Hgb (13.0-17.5) gm/dL Hct (39.0-53.0) % MCHC (31.0-37.0) g/dL RDW (11.5-15.5) % Neutrophils # (1.3-7.7) k/uL ABG pH 7.18 L* (7.35-7.45) ABG pCO2 82 H* (35-45) mmHg ABG pO2 (83-108) mmHg ABG HCO3 30 H (21-25) mmol/L ABG Total CO2 33 H (19-24) mmol/L ABG O2 Saturation (94-97) % Hemoglobin 7.2 L (13.0-17.5) gm/dL Sodium (137-145) mmol/L Carbon Dioxide (22-30) mmol/L BUN (9-20) mg/dL Glucose (74-99) mg/dL POC Glucose (mg/dL) 149 H 246 H (70-110) mg/dL Plasma Lactic Acid Hector (0.7-2.0) mmol/L Calcium (8.4-10.2) mg/dL 01/29/24 01/30/24 01/30/24 Range/Units 20:26 01:10 05:03 WBC (3.8-10.6) k/uL RBC (4.30-5.90) m/uL Hgb (13.0-17.5) gm/dL Hct (39.0-53.0) % MCHC (31.0-37.0) g/dL RDW (11.5-15.5) % Neutrophils # (1.3-7.7) k/uL ABG pH 7.33 L (7.35-7.45) ABG pCO2 59 H (35-45) mmHg ABG pO2 152 H (83-108) mmHg ABG HCO3 31 H (21-25) mmol/L ABG Total CO2 33 H (19-24) mmol/L ABG O2 Saturation 100.0 H (94-97) % Hemoglobin 6.6 L* (13.0-17.5) gm/dL Sodium (137-145) mmol/L Carbon Dioxide (22-30) mmol/L BUN (9-20) mg/dL Glucose (74-99) mg/dL POC Glucose (mg/dL) (70-110) mg/dL Plasma Lactic Acid Hector 2.3 H* 2.1 H* (0.7-2.0) mmol/L Calcium (8.4-10.2) mg/dL 01/30/24 01/30/24 01/30/24 Range/Units 06:00 06:16 06:16 WBC 19.3 H (3.8-10.6) k/uL RBC 2.43 L (4.30-5.90) m/uL Hgb 7.3 L (13.0-17.5) gm/dL Hct 23.7 L (39.0-53.0) % MCHC 30.8 L (31.0-37.0) g/dL RDW 16.4 H (11.5-15.5) % Neutrophils # 15.8 H (1.3-7.7) k/uL ABG pH (7.35-7.45) ABG pCO2 (35-45) mmHg ABG pO2 (83-108) mmHg ABG HCO3 (21-25) mmol/L ABG Total CO2 (19-24) mmol/L ABG O2 Saturation (94-97) % Hemoglobin (13.0-17.5) gm/dL Sodium 135 L (137-145) mmol/L Carbon Dioxide 31 H (22-30) mmol/L BUN 25 H (9-20) mg/dL Glucose 139 H (74-99) mg/dL POC Glucose (mg/dL) 139 H (70-110) mg/dL Plasma Lactic Acid Hector (0.7-2.0) mmol/L Calcium 7.4 L (8.4-10.2) mg/dL Microbiology - Last 24 Hours (Table) 01/29/24 13:40 Gram Stain - Preliminary Sputum 01/28/24 15:40 Blood Culture - Preliminary Blood Assessment and Plan Plan: Acute hypoxemic respiratory failure with failure to wean from mechanical ventilation, S/P tracheostomy on December 10, 2023. The patient has bilateral pneumonia with a cavitary infiltrate in the right upper lobe, secondary to Pseudomonas aeruginosa and Citrobacter. The patient had a pigtail catheter inserted with drainage of the right lung abscess. The bronchial washing is positive for Pseudomonas aeruginosa, quinolone sensitive and the cultures from the pigtail catheter/lung abscess was also positive for Pseudomonas aeruginosa and follow-up CAT scan of the chest was done on 01/25/2024 showed improvement the right-sided hydropneumothorax and the patient does have residual infiltrates and patchy consolidations bilaterally. On 01/29/2024, the patient became progressively more hypoxic. Went into significant respiratory distress and the patient was sedated and the patient is currently on a combination of sedation and paralytics with a combination of Nimbex and propofol. He is on volume- cycled mode of mechanical ventilation. Blood gases are to follow. Chest x-ray shows interval worsening of the infiltrates with extensive consolidation in the left. Tracheostomy tube was exchanged due to massive air leaks and the leaks were eliminated. Bronchoscopy also done with a bronchial lavage of the left upper lobe. The patient is currently covered with a combination of meropenem and vancomycin. He is also on Flagyl. Pigtail catheter remains in place. Chest x-ray remains unchanged. Awaiting the results of the bronchoalveolar lavage that was collected on bronchoscopy. Right apical pneumothorax with ongoing airleak through the pigtail catheter, suspect a bronchopleural fistula in addition. There is no airleak and the chest CAT scan from 01/25/2024 shows improvement in the right-sided hydropneumothorax. Output from the pigtail catheter is minimal at this point in time. Nevertheless, the follow-up chest x-ray from today showing worsening in the consolidation especially left. Hospital-acquired right lung pseudomonalpneumonia. The patient had a cavitating gram-negative pneumonia that was further complicated by development of a lung abscess. Patient is status post the pigtail catheter insertion. Output from the pigtail is minimal at this point in time.. Cough, subsided, continues to have respiratory secretions. Rule out underlying bronchopleural fistula. Bronchoscopy was completed. 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 The patient remains n.p.o. Small bowel perforation with abdominal contamination. The patient is status post expiratory laparotomy and small bowel resection and insertion of another jejunostomy tube. The patient jejunostomy is not functional, awaiting further recommendations from general surgery regarding the functionality of this tube and our ability to restart enteral feeding for nutritional support. The RAYA drain has been removed on 01/28/2024. Peritonitis secondary to above, recovered. Questionable diverticulitis of the sigmoid level with a phlegmon/abscess formation. This is also improving based on the most recent CAT scan of the abdomen and pelvis done on 01/25/2024. Septic shock secondary to above, the patient is currently off pressors Atrial fibrillation with rapid medical response, currently back into normal sinus rhythm . 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 Malfunctioning of the J-tube, currently on TPN for nutritional support Hypertension Leukocytosis Plan Keep the patient on a combination of propofol and Nimbex for the next 24 hours Dropped FiO2 down to 50% and dropped the PEEP down to 8 Wean FiO2 slowly to maintain saturation above 90% Bronchoscopy and bronchial lavage of the left upper lobe/lingula was done, the results are still pending Keep the pigtail catheter in place and the patient has no air leak on today's evaluation Previous cultures from the right lung abscess and sputum was sent and the sputum sample was positive for Pseudomonas aeruginosa, quinolone sensitive. The J-tube is nonfunctional and the patient is on TPN for nutritional support, general surgery is on the case, we will ask the surgeon to reevaluate the J-tube and any surgical recommendations was to keep the patient n.p.o. and the J-tube. The RAYA drain has been removed IV fluids to KVO Monitor fever pattern General Surgery is on the case regarding abdominal wound Will consider broadening the antibiotic coverage and will discuss this with infectious disease Hemoglobin is stable Condition remains extremely critical with poor prognosis based on the above Will continue to follow this patient along with the rest of the consultants. Evaluation was done more than 30 minutes. Time with Patient: Greater than 30
--- NOTE | 2024-01-30 14:47 | P.PN ---
Subjective Progress Note Date: 01/30/24 Principal diagnosis: Reason for follow-up is pneumonia and diverticulitis Patient is 73-year-old with male initial presentation to the hospital on 11/12/2023 after the patient did have aspiration while undergoing elective endoscopy, diagnosed with a non-Hodgkin lymphoma subsequently did have exploratory laparotomy for perforated small bowel, abdominal washout and feeding jejunostomy tube patient did require dialysis catheter placement for dialysis during this hospital stay which was subsequently discontinued, and tracheostomy for respiratory failure. On today's evaluation that is 01/30/2024,the patient did have resolution of his fever and afebrile this morning patient remains to be intubated on the vent FiO2 is currently stable at 50% patient is hemodynamically stable not requiring any pressor support and no diarrhea has been reported. Patient white count slightly down to 19.3 today, creatinine 0.6 7 repeat blood and sputum cultures currently pending chest x-ray this morning mixed infiltrate persist throughout both lungs with mild improved aeration at the right lung base Objective - Vital Signs Vital signs: Vital Signs Temp 97.7 F 01/30/24 08:00 Pulse 95 01/30/24 11:58 Resp 28 H 01/30/24 11:00 BP 125/83 01/30/24 11:00 Pulse Ox 96 01/30/24 11:00 FiO2 50 01/30/24 11:47 Intake & Output 01/29/24 01/30/24 01/30/24 18:59 06:59 18:59 Intake Total 2433.420 2569.247 983.847 Output Total 551 1245 450 Balance 8751.407 4980.247 533.847 Weight 104.1 kg Intake: IV 980 2300 200 0.9 Normal Saline @ KVO 130 220 100 Ciprofloxacin/Dextrose 200 Pmx 400 mg In Dextrose/ Water 1 200ml.bag @ 200 mls/hr IVPB Q8H [facility] Rx#: [id number] IV Bolus 1000 TPN 450 1080 metroNIDAZOLE-NS PMX 500 200 100 mg In Saline 1 100ml.bag @ 100 mls/hr IVPB Q8H [facility] Rx#:[id number] Intake, IV Titration 1183.420 269.247 249.847 Amount Cisatracurium 200 mg In 12.848 149.949 149.847 Sodium Chloride 0.9% 180 ml @ 1 MCG/KG/MIN 6.192 mls/hr IV .Q24H [facility] Rx#: [id number] Dexmedetomidine/0.9% NaCl 3.870 (Pmx) 400 mcg In Empty Bag 1 bag @ 0.2 MCG/KG/HR 5.16 mls/hr IV .[id number] [facility] Rx#:[id number] Mvi, Adult No.4 with Vit 1086 K 10 ml Trace (Conc-1Ml/ Dose) 1 ml Parenteral Electrolytes 20 ml Sodium Acetate 64 meq Potassium Acetate 36 meq Magnesium Sulfate gm 1 gm Sodium Phosphate 9 mmol In Amino Acids 5 %/Dextrose 20 % 1,000 ml @ 90 mls/hr IV . BY DURATION [facility] Rx#: [id number] propofoL 1,000 mg In 80.702 119.298 100 Empty Bag 1 bag @ 15 MCG/ KG/MIN 9.288 mls/hr IV . [id number] [facility] Rx#:[id number] TPN/PPN 270 450 TPN 270 450 Lipid 84 Fat Emulsion 20% 250 ml 84 In Empty Bag 1 bag @ 21 mls/hr IV TuThSa@0900 [facility] Rx#:[id number] Output: Chest Tube Drainage 100 10 Chest Tube Right 100 10 Urine 450 1235 450 Stool 1 Other: Voiding Method Indwelling Catheter Indwelling Catheter Indwelling Catheter ABP, PAP, CO, CI - Last Documented Arterial Blood Pressure 173/76 - Exam GENERAL DESCRIPTION: An elderly male intubated with trach RESPIRATORY SYSTEM: Unlabored breathing , coarse breath sounds anteriorly HEART: S1 S2 regular rate and rhythm , ABDOMEN: Soft , no tenderness EXTREMITIES: No edema feet - Labs CBC & Chem 7: 01/30/24 06:16 01/30/24 06:16 Labs: Abnormal Lab Results - Last 24 Hours (Table) 01/29/24 01/29/24 01/29/24 Range/Units 17:55 18:38 20:26 WBC (3.8-10.6) k/uL RBC (4.30-5.90) m/uL Hgb (13.0-17.5) gm/dL Hct (39.0-53.0) % MCHC (31.0-37.0) g/dL RDW (11.5-15.5) % Neutrophils # (1.3-7.7) k/uL ABG pH 7.18 L* (7.35-7.45) ABG pCO2 82 H* (35-45) mmHg ABG pO2 (83-108) mmHg ABG HCO3 30 H (21-25) mmol/L ABG Total CO2 33 H (19-24) mmol/L ABG O2 Saturation (94-97) % Hemoglobin 7.2 L (13.0-17.5) gm/dL Sodium (137-145) mmol/L Carbon Dioxide (22-30) mmol/L BUN (9-20) mg/dL Glucose (74-99) mg/dL POC Glucose (mg/dL) 246 H (70-110) mg/dL Plasma Lactic Acid Hector 2.3 H* (0.7-2.0) mmol/L Calcium (8.4-10.2) mg/dL 01/30/24 01/30/24 01/30/24 Range/Units 01:10 05:03 06:00 WBC (3.8-10.6) k/uL RBC (4.30-5.90) m/uL Hgb (13.0-17.5) gm/dL Hct (39.0-53.0) % MCHC (31.0-37.0) g/dL RDW (11.5-15.5) % Neutrophils # (1.3-7.7) k/uL ABG pH 7.33 L (7.35-7.45) ABG pCO2 59 H (35-45) mmHg ABG pO2 152 H (83-108) mmHg ABG HCO3 31 H (21-25) mmol/L ABG Total CO2 33 H (19-24) mmol/L ABG O2 Saturation 100.0 H (94-97) % Hemoglobin 6.6 L* (13.0-17.5) gm/dL Sodium (137-145) mmol/L Carbon Dioxide (22-30) mmol/L BUN (9-20) mg/dL Glucose (74-99) mg/dL POC Glucose (mg/dL) 139 H (70-110) mg/dL Plasma Lactic Acid Hector 2.1 H* (0.7-2.0) mmol/L Calcium (8.4-10.2) mg/dL 01/30/24 01/30/24 01/30/24 Range/Units 06:16 06:16 11:48 WBC 19.3 H (3.8-10.6) k/uL RBC 2.43 L (4.30-5.90) m/uL Hgb 7.3 L (13.0-17.5) gm/dL Hct 23.7 L (39.0-53.0) % MCHC 30.8 L (31.0-37.0) g/dL RDW 16.4 H (11.5-15.5) % Neutrophils # 15.8 H (1.3-7.7) k/uL ABG pH (7.35-7.45) ABG pCO2 (35-45) mmHg ABG pO2 (83-108) mmHg ABG HCO3 (21-25) mmol/L ABG Total CO2 (19-24) mmol/L ABG O2 Saturation (94-97) % Hemoglobin (13.0-17.5) gm/dL Sodium 135 L (137-145) mmol/L Carbon Dioxide 31 H (22-30) mmol/L BUN 25 H (9-20) mg/dL Glucose 139 H (74-99) mg/dL POC Glucose (mg/dL) 174 H (70-110) mg/dL Plasma Lactic Acid Hector (0.7-2.0) mmol/L Calcium 7.4 L (8.4-10.2) mg/dL Microbiology - Last 24 Hours (Table) 01/29/24 13:40 Gram Stain - Preliminary Sputum 01/28/24 15:40 Blood Culture - Preliminary Blood Assessment and Plan (1) Sepsis Current Visit: Yes Status: Acute Code(s): A41.9 - SEPSIS, UNSPECIFIED ORGANISM SNOMED Code(s): 11957049 (2) Pneumonia Current Visit: Yes Status: Acute Code(s): J18.9 - PNEUMONIA, UNSPECIFIED ORGANISM SNOMED Code(s): 169814658 (3) Bacteremia Current Visit: Yes Status: Acute Code(s): R78.81 - BACTEREMIA SNOMED Code(s): 3042655 Plan: 1 the patient did have a new fever also noticed to have worsening of his respiratory status concerning for pneumonia 2repeat sputum and blood culture are currently pending 3patient is currently being treated with vancomycin and meropenem added by pulmonary, no need for Flagyl with meropenem which will be discontinued Dictation was produced using dragon dictation software. please excuse any grammatical, word or spelling errors.
[2024-01-30 18:12] LABS: Glucose,Whole Blood 141 mg/dL (70-110)
[2024-01-30 23:45] LABS: Glucose,Whole Blood 173 mg/dL (70-110)
[2024-01-31 04:40] LABS: ABG Base Excess 6.9 mmol/L; ABG HCO3 33 mmol/L (21-25); ABG Oxygen Saturation 97.5 % (94-97); ABG PCO2 59 mmHg (35-45); ABG PH 7.36 (7.35-7.45); ABG PO2 85 mmHg (83-108); ABG TCO2 35 mmol/L (19-24); Allen Test Performed? Yes
[2024-01-31] MEDS: VANCOMYCIN 1,500 MG in SODIUM CHLORIDE 0.9% 500 ML 500 ML IVPB SCH (04:43)
[2024-01-31 05:17] LABS: Anisocytosis Slight; Basophils # (A) 0.1 k/uL (0-0.2); Basophils % (A) 1 %; Eosinophils # (A) 0.5 k/uL (0-0.7); Eosinophils % (A) 3 %; HCT 23.5 % (39.0-53.0); Hypochromasia Marked; Lymphocytes # (A) 2.4 k/uL (1.0-4.8); Lymphocytes % (A) 16 %; MCH 30.1 pg (25.0-35.0); MCV 100.4 fL (80.0-100.0); Macrocytosis Slight; Mean Platelet Volume 8.7; Monocytes # (A) 0.6 k/uL (0-1.0); Monocytes % (A) 4 %; Neutrophils # (A) 11.7 k/uL (1.3-7.7); Neutrophils % (A) 76 %; RBC 2.34 m/uL (4.30-5.90); RDW 16.4 % (11.5-15.5); WBC 15.4 k/uL (3.8-10.6)
[2024-01-31 05:34] LABS: Glucose,Whole Blood 160 mg/dL (70-110)
[2024-01-31 05:36] LABS: African American GFR (CKD) >90 (>60 ml/min/1.73 sqM); Anion Gap 0 mmol/L; Blood Urea Nitrogen 29 mg/dL (9-20); Calcium 7.6 mg/dL (8.4-10.2); Carbon Dioxide 30 mmol/L (22-30); Chloride 106 mmol/L (98-107); Glucose 152 mg/dL (74-99); Magnesium 2.2 mg/dL (1.6-2.3); Non-African American GFR(CKD) >90 (>60 ml/min/1.73 sqM); Potassium 5.4 mmol/L (3.5-5.1); Sodium 136 mmol/L (137-145)
[2024-01-31 05:38] LABS: Platelet Count 169 k/uL (150-450)
--- NOTE | 2024-01-31 08:31 | XR ---
EXAMINATION TYPE: XR chest 1V portable DATE OF EXAM: 01/31/2024 5:29 AM COMPARISON: Chest radiographs from CLINICAL INDICATION: Male, 73 years old with history of On vent, , TECHNIQUE: Single frontal view of the chest is obtained. FINDINGS: Tracheostomy cannula in place. Left PICC tip not clearly seen beyond the lower SVC level. Right anterior chest wall injection port catheter tip at the inferior cavoatrial junction. Right-side d pigtail pleural catheter in place. Heart upper limits of normal in size. Multifocal patchy and conf luent airspace opacity persists without significant change. Small to moderate right pleural effusion may be slightly increased. IMPRESSION: 1. Ongoing multifocal patchy and confluent airspace disease. 2. A [id number] right pleural effusion may be slightly increased. [facility], , 01/31/2024 8:28 AM
[2024-01-31] MEDS: SODIUM POLYSTYRENE SULFONATE 30 GM/120 ML BOTTLE RECTAL STA (10:15)
[2024-01-31 11:18] LABS: Glucose,Whole Blood 157 mg/dL (70-110)
--- NOTE | 2024-01-31 14:00 | P.PN ---
Subjective Progress Note Date: 01/31/24 On today's evaluation of 01/27/2024, the patient remains on a trach collar airfit 40% with a flow of 10 L. No significant respiratory distress. Awake and alert and communicating. Profound weakness although is able to move all 4 extremities with essentially profound weakness in the motor function is 2 out of 5 in all 4 extremities. The patient has a right-sided pigtail catheter. There is ongoing episodic air leak and the output from the right sided chest has been only 10 cc over the past 24 hours. The follow-up chest x-ray showed interval improvement in the right-sided pleural effusion and there is residual consolidation bilaterally as the patient is being treated for pseudomonal pneumonia. Sputum samples from 01/07/2024 was again positive for Pseudomonas aeruginosa and the patient remains on IV ciprofloxacin. The patient remains NPO. The patient remains on TPN for nutritional support and TPN is running at a rate of 90 cc an hour. He has an adequate urine output. The most recent CAT scan of the abdomen and pelvis from 01/25/2024 showed interval development of a dilated small bowel loop in the mid abdomen consistent with either focal ileus versus a partial obstruction. There is also findings suggestive of acute diverticulitis of the sigmoid colon with small pericolic phlegmon/abscess and this has been decreasing in size measuring previously 3.4 cm in size and currently measuring 3 cm in size. Continues to have moderate anasarca. The patient also has decreased right-sided hydropneumothorax on the right side and persistent bilateral pulmonary consolidation. Overall CAT scan findings of the chest have improved. Her white cell count is 14.7. Hemoglobin 7.8. Platelet count of 376. BUN is 19 with a creatinine of 0.5. Sodium is at 132 and a potassium level is at 3.9. The magnesium is at 1.9. Phosphorus is 3.3. Calcium is at 7.2. The patient is having some ongoing leaks around the J-tube. He is on TPN for nutritional support and remains NPO. He is on IV Flagyl in addition. Insulin is in the form of sliding scale coverage. On 01/28/2024, clinically stable and unchanged. Remains on 40% trach collar,, comfortable, communicating, motor function is still weak in all 4 extremities and unchanged compared to yesterday. No significant leaks around the J-tube. RAYA drain is still in place in the right lower quadrant and the output is minimal at this point in time. Wound VAC is also in place. There is still ongoing air leak for the pigtail catheter in his right lung and output has been minimal in the order of 10 cc over the past 12 hours. Remains on IV Cipro. Remains on IV Flagyl. Remains on TPN for nutritional support. Blood work is showing a sodium level of 133, potassium of 4.3, BUN is 20 with a creatinine of 0.6. CBC is still pending and the most recent hemoglobin is at 7.8. On 01/29/2024, the patient's condition is decompensated. Earlier this morning, the patient was found to be in more respiratory distress. Overnight, he was bender ving episodes of hypoglycemia and the patient was placed on 80% trach collar. Later on during the morning, the patient decompensated further. A repeat chest x-ray was done and the patient was found to have patchy confluent bilateral airspace disease with worsening especially on the left. The patient has a right-sided pigtail catheter in place. No evidence of any air leak. Output remains minimal from the pigtail catheter. Noted with those changes, the patient was resedated. Initially was started on Precedex and later on to propofol as the patient was quite tachypneic and is synchronous with the mechanical ventilator. He was placed on a control mode with rate of 16, TV 500, PEEP of 10 with an FiO2 of 100%. Subsequently, he started having significant amount of leak around the tracheostomy tube and he was not returning volumes back. I did a bedside tracheostomy tube exchange and inserted another Shiley #8 tracheostomy tube catheter. Following that, I performed a bronchoscopy and obtain a bronchial lavage of the lingula as the patient had worsening in airspace disease specially on the left. Meanwhile, the patient remains on IV cefepime. The patient remains on Flagyl. Remains hemodynamically stable. Cardiac rhythm is sinus tachycardia. Remains on TPN for nutritional shipley pport at a rate of 90. The RAYA drain was removed yesterday by the surgical team. There is no interval increase in the leaks around the J-tube. He is not receiving enteral feeding for now. His white cell count currently is up to 20 with a hemoglobin 7.6 and a platelet count of 387. Electrolytes from today shows a BUN of 21 with a creatinine of 0.6. Sodium levels at 134 with a potassium level of 4.2, bicarb of 25. 01/30/2024, the patient is on the mechanical ventilator, tracheostomy tube has been exchanged yesterday and there is no significant leaks around the tracheostomy tube. The patient is sedated with propofol running at 30 mcg/kg/min and the patient is also on Nimbex at 2 mcg. He is on assist-control mode with rate of 28, tidal volume of 500, FiO2 of 75% with a PEEP of 10. Blood gas showed a pH of 7.33 with a pCO2 of 59 and pO2 of 152. Chest x-ray shows worsening in consolidations bilaterally. Bronchoscopy endobronchial lavage of the left upper lobe/lingula was done. Results are still pending. Currently on broad-spectrum antibiotic coverage with a combination of meropenem, vancomycin and Flagyl. Remains on TPN for nutritional support at a rate of 90 cc an hour. Fluid balance is +3.2 L over the past 24 hours. His procalcitonin level is at 0.4. Rest of the labs was reviewed and the white cell count remains elevated at 19.3, hemoglobin 7.3, sodium is at 135, BUN 25 with a creatinine of 0.6. Potassium is at 3.4. Pigtail catheter still present in his right lung. Output is minimal and there is no air leak. Chest x-ray shows mixed infiltrates bilaterally and there is considerable amount of consolidation involving the left lung. No significant drainage around the J she open the patient has a wound VAC. RAYA drain has been removed. 01/31/2024, the patient remains sedated and paralyzed. This morning, the patient is on propofol at 40 mcg/kg/min and the patient is also on Nimbex. Remains on assist-control mode of mechanical ventilation with a rate of 28, tidal volume of 500, FiO2 50% with a PEEP of 8. Blood gas showed a pH of 7.36 with a pCO2 of 59 and pO2 of 85. Pigtail catheter is present in the right chest. There is intermittent airleak. Output is minimal. Chest x-ray shows ongoing patchy opacities bilaterally along with airspace disease. A small right-sided pleural effusion is also present. The bronchial lavage that was obtained on 01/30/2024 is still showing persistent Pseudomonas aeruginosa. The patient is currently on IV meropenem, vancomycin and Flagyl. The white cell count is 15.4, the hemoglobin is at 7 with a platelet count of 169. Potassium level is at 5.4 and the TPN will be adjusted in the potassium supplements will be admitted from TPN. TPN is running at a rate of 90 cc an hour. Sodium is at 136, BUN is 29 with a creatinine of 0.6. Abdominal findings are essentially stable. Abdominal distention. No significant drainage around the J-tube. No pressors for now. Fluid balance is +4.2 L over the past 24 hours. Objective - Vital Signs Vital signs: Vital Signs Temp 98.7 F 01/31/24 08:00 Pulse 94 01/31/24 09:36 Resp 28 H 01/31/24 09:36 BP 138/86 01/31/24 08:00 Pulse Ox 100 01/31/24 08:00 FiO2 50 01/31/24 09:39 Intake & Output 01/30/24 01/31/24 01/31/24 18:59 06:59 18:59 Intake Total 9073.182 2320.411 573.607 Output Total 630 1100 190 Balance 6490.249 0442.411 383.607 Weight 99 kg Intake: IV 410 2331 367 0.9 Normal Saline @ KVO 220 150 20 Meropenem 1 gm In Sodium 99 Chloride 0.9% 100 ml @ 33 .3 mls/hr IVPB Q8HR [facility] Rx#:[id number] TPN 90 1080 180 Vancomycin 1,500 mg In 1002 167 Sodium Chloride 0.9% 500 ml 500 ml @ 167 mls/hr IVPB Q16H [facility] Rx#: [id number] metroNIDAZOLE-NS PMX 500 100 mg In Saline 1 100ml.bag @ 100 mls/hr IVPB Q8H [facility] Rx#:[id number] Intake, IV Titration 913.832 4792.411 206.607 Amount Cisatracurium 200 mg In 252.221 264.345 119.609 Sodium Chloride 0.9% 180 ml @ 1 MCG/KG/MIN 6.192 mls/hr IV .Q24H [facility] Rx#: [id number] Mvi, Adult No.4 with Vit 1086 K 10 ml Trace (Conc-1Ml/ Dose) 1 ml Parenteral Electrolytes 20 ml Sodium Acetate 64 meq Potassium Acetate 36 meq Magnesium Sulfate gm 1 gm Sodium Phosphate 9 mmol In Amino Acids 5 %/Dextrose 20 % 1,000 ml @ 90 mls/hr IV . BY DURATION [facility] Rx#: [id number] propofoL 1,000 mg In 200 173.066 86.998 Empty Bag 1 bag @ 15 MCG/ KG/MIN 9.288 mls/hr IV . [id number] [facility] Rx#:[id number] TPN/PPN 900 TPN 900 Lipid 189 21 Fat Emulsion 20% 250 ml 189 21 In Empty Bag 1 bag @ 21 mls/hr IV TuThSa@0900 [facility] Rx#:[id number] Output: Chest Tube Drainage 0 0 Chest Tube Right 0 0 Urine 630 1100 190 Other: Voiding Method Indwelling Catheter Indwelling Catheter Indwelling Catheter ABP, PAP, CO, CI - Last Documented Arterial Blood Pressure 173/76 - Exam The patient was sedated and he was synchronous on mechanical ventilator. He is currently on a combination of propofol and Nimbex. HEENT examination is grossly unremarkable. Mucous membranes are moist. No oral lesions.. The patient also has a tracheostomy tube in place and the patient has a #8 Shiley tracheostomy tube. Cardiac exam revealed the PMI to be normally situated and sized. The rhythm was regular and no extrasystoles were noted during several minutes of auscultation. The first and second heart sounds were normal and physiologic splitting of the second heart sound was noted. There were no murmurs, rubs, clicks, or gallops. The patient is in sinus tachycardia. Lungs reveal mild scattered rhonchi. No wheezes or crackles. Breath sounds equal. Diminished breath sound lung base bilaterally. Pigtail catheter in the right chest posteriorly located with positive output and positive airleak on the Pleur-evac. Abdomen distended without bowel sounds. J-tube is noted. Mid abdominal wound is covered with a wound VAC. Output from the wound VAC is minimal at this point in time. And underlying wound is rather clean. J tube remains in place. Some leaks around the tube noted. The RAYA drain has been removed. Extremities are intact. No cyanosis clubbing trace edema lower extremities bilaterally Skin is without rash or lesion. The wound at the Mediport site is dry and the area has been sutured and the site is clean for now. Neurologic profound weakness in all 4 extremities and the patient is currently on sedation. - Labs CBC & Chem 7: 01/31/24 05:01 01/31/24 09:09 Labs: Abnormal Lab Results - Last 24 Hours (Table) 01/30/24 01/30/24 01/30/24 Range/Units 11:48 18:11 23:44 WBC (3.8-10.6) k/uL RBC (4.30-5.90) m/uL Hgb (13.0-17.5) gm/dL Hct (39.0-53.0) % MCV (80.0-100.0) fL MCHC (31.0-37.0) g/dL RDW (11.5-15.5) % Neutrophils # (1.3-7.7) k/uL ABG pCO2 (35-45) mmHg ABG HCO3 (21-25) mmol/L ABG Total CO2 (19-24) mmol/L ABG O2 Saturation (94-97) % Hemoglobin (13.0-17.5) gm/dL Sodium (137-145) mmol/L Potassium (3.5-5.1) mmol/L BUN (9-20) mg/dL Creatinine (0.66-1.25) mg/dL Glucose (74-99) mg/dL POC Glucose (mg/dL) 174 H 141 H 173 H (70-110) mg/dL Calcium (8.4-10.2) mg/dL 01/31/24 01/31/24 01/31/24 Range/Units 04:34 05:01 05:01 WBC 15.4 H (3.8-10.6) k/uL RBC 2.34 L (4.30-5.90) m/uL Hgb 7.0 L (13.0-17.5) gm/dL Hct 23.5 L (39.0-53.0) % MCV 100.4 H (80.0-100.0) fL MCHC 30.0 L (31.0-37.0) g/dL RDW 16.4 H (11.5-15.5) % Neutrophils # 11.7 H (1.3-7.7) k/uL ABG pCO2 59 H (35-45) mmHg ABG HCO3 33 H (21-25) mmol/L ABG Total CO2 35 H (19-24) mmol/L ABG O2 Saturation 97.5 H (94-97) % Hemoglobin 7.3 L (13.0-17.5) gm/dL Sodium 136 L (137-145) mmol/L Potassium 5.4 H (3.5-5.1) mmol/L BUN 29 H (9-20) mg/dL Creatinine 0.61 L (0.66-1.25) mg/dL Glucose 152 H (74-99) mg/dL POC Glucose (mg/dL) (70-110) mg/dL Calcium 7.6 L (8.4-10.2) mg/dL 01/31/24 01/31/24 Range/Units 05:33 09:09 WBC (3.8-10.6) k/uL RBC (4.30-5.90) m/uL Hgb (13.0-17.5) gm/dL Hct (39.0-53.0) % MCV (80.0-100.0) fL MCHC (31.0-37.0) g/dL RDW (11.5-15.5) % Neutrophils # (1.3-7.7) k/uL ABG pCO2 (35-45) mmHg ABG HCO3 (21-25) mmol/L ABG Total CO2 (19-24) mmol/L ABG O2 Saturation (94-97) % Hemoglobin (13.0-17.5) gm/dL Sodium (137-145) mmol/L Potassium 5.4 H (3.5-5.1) mmol/L BUN (9-20) mg/dL Creatinine (0.66-1.25) mg/dL Glucose (74-99) mg/dL POC Glucose (mg/dL) 160 H (70-110) mg/dL Calcium (8.4-10.2) mg/dL Microbiology - Last 24 Hours (Table) 01/30/24 04:06 Gram Stain - Preliminary Sputum 01/28/24 15:40 Blood Culture - Preliminary Blood 01/29/24 13:40 Gram Stain - Preliminary Sputum Assessment and Plan Plan: Acute hypoxemic respiratory failure with failure to wean from mechanical ventilation, S/P tracheostomy on December 10, 2023. The patient has bilateral pneumonia with a cavitary infiltrate in the right upper lobe, secondary to Pseudomonas aeruginosa and Citrobacter. The patient had a pigtail catheter inserted with drainage of the right lung abscess. The bronchial washing is positive for Pseudomonas aeruginosa, quinolone sensitive and the cultures from the pigtail catheter/lung abscess was also positive for Pseudomonas aeruginosa and follow-up CAT scan of the chest was done on 01/25/2024 showed improvement the right-sided hydropneumothorax and the patient does have residual infiltrates and patchy consolidations bilaterally. On 01/29/2024, the patient became progressively more hypoxic. Went into significant respiratory distress and the patient was sedated and the patient is currently on a combination of sedation and paralytics with a combination of Nimbex and propofol. He is on volume- cycled mode of mechanical ventilation. Blood gases are to follow. Chest x-ray shows interval worsening of the infiltrates with extensive consolidation in the left. Tracheostomy tube was exchanged due to massive air leaks and the leaks were eliminated. Bronchoscopy also done with a bronchial lavage of the left upper lobe. The patient is currently covered with a combination of meropenem and vancomycin. He is also on Flagyl. Pigtail catheter remains in place. Chest x-ray remains unchanged. Awaiting the results of the bronchoalveolar lavage was consistent with Pseudomonas aeruginosa, persistent bacterial growth/infection with Pseudomonas is confirmed. Right apical pneumothorax with ongoing airleak through the pigtail catheter, suspect a bronchopleural fistula in addition. There is intermittent airleak and the chest CAT scan from 01/25/2024 shows improvement in the right-sided hydropneumothorax. Output from the pigtail catheter is minimal at this point in time. Nevertheless, the follow-up chest x-ray shows persistent airspace disease and consolidations in the repeat bronchoscopy and bronchial lavage showed persistent growth with Pseudomonas aeruginosa. Hospital-acquired right lung pseudomonalpneumonia. The patient had a cavitating gram-negative pneumonia that was further complicated by development of a lung abscess. Patient is status post the pigtail catheter insertion. Output from the pigtail is minimal at this point in time.. There is evidence of inte rmittent air leak. Cough, subsided, continues to have respiratory secretions. Rule out underlying bronchopleural fistula. Bronchoscopy was completed. 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 The patient remains n.p.o. Small bowel perforation with abdominal contamination. The patient is status post expiratory laparotomy and small bowel resection and insertion of another jejunostomy tube. The patient jejunostomy is not functional, awaiting further recommendations from general surgery regarding the functionality of this tube and our ability to restart enteral feeding for nutritional support. The RAYA drain has been removed on 01/28/2024. Peritonitis secondary to above, recovered. Questionable diverticulitis of the sigmoid level with a phlegmon/abscess formation. This is also improving based on the most recent CAT scan of the abdomen and pelvis done on 01/25/2024. Septic shock secondary to above, the patient is currently off pressors Atrial fibrillation with rapid medical response, currently back into normal sinus rhythm . 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 Malfunctioning of the J-tube, currently on TPN for nutritional support Hypertension Leukocytosis Hyperkalemia Plan Stop Nimbex and give the patient a paralytic holiday Keep the patient on propofol and weaning down Dropped FiO2 down to 50% and dropped the PEEP down to 6 Wean FiO2 slowly to maintain saturation above 90% Bronchoscopy and bronchial lavage of the left upper lobe/lingula was done, the bronchioloalveolar lavage was positive for Pseudomonas aeruginosa Keep the pigtail catheter in place and the patient has intermittent air leak without any significant output The J-tube is nonfunctional and the patient is on TPN for nutritional support, general surgery is on the case, Eliminate the potassium supplements from the TPN IV fluids to KVO Give the patient a dose of Lasix 40 mg IV push x 1 Monitor fever pattern General Surgery is on the case regarding abdominal wound Will consider broadening the antibiotic coverage and will discuss this with infectious disease Hemoglobin is stable Condition remains extremely critical with poor prognosis based on the above Will continue to follow this patient along with the rest of the consultants. Evaluation was done more than 30 minutes. Time with Patient: Greater than 30
--- NOTE | 2024-01-31 14:37 | P.PN ---
Subjective Progress Note Date: 01/31/24 Principal diagnosis: Reason for follow-up is pneumonia and diverticulitis Patient is 73-year-old with male initial presentation to the hospital on 11/12/2023 after the patient did have aspiration while undergoing elective endoscopy, diagnosed with a non-Hodgkin lymphoma subsequently did have exploratory laparotomy for perforated small bowel, abdominal washout and feeding jejunostomy tube patient did require dialysis catheter placement for dialysis during this hospital stay which was subsequently discontinued, and tracheostomy for respiratory failure. On today's evaluation that is 01/31/2024,the patient remains to be afebrile, patient is on ventilator FiO2 is down to 50% no significant purulent secretion through the ET patient is hemodynamically stable not requiring any pressor support no other changes reported by the nursing staff. Patient white count is down to 15.4 creatinine 0.61 sputum culture now growing Pseudomonas aeruginosa with sensitivities pending Objective - Vital Signs Vital signs: Vital Signs Temp 98.7 F 01/31/24 08:00 Pulse 96 01/31/24 10:00 Resp 28 H 01/31/24 10:00 BP 113/63 01/31/24 10:00 Pulse Ox 100 01/31/24 10:00 FiO2 50 01/31/24 09:39 Intake & Output 01/30/24 01/31/24 01/31/24 18:59 06:59 18:59 Intake Total 1242.937 8173.411 914.784 Output Total 630 1100 440 Balance 9570.796 7465.411 474.784 Weight 99 kg Intake: IV 410 2331 667 0.9 Normal Saline @ KVO 220 150 40 Meropenem 1 gm In Sodium 99 100 Chloride 0.9% 100 ml @ 33 .3 mls/hr IVPB Q8HR [facility] Rx#:[id number] TPN 90 1080 360 Vancomycin 1,500 mg In 1002 167 Sodium Chloride 0.9% 500 ml 500 ml @ 167 mls/hr IVPB Q16H [facility] Rx#: [id number] metroNIDAZOLE-NS PMX 500 100 mg In Saline 1 100ml.bag @ 100 mls/hr IVPB Q8H [facility] Rx#:[id number] Intake, IV Titration 328.096 2778.411 247.784 Amount Cisatracurium 200 mg In 252.221 264.345 160.786 Sodium Chloride 0.9% 180 ml @ 1 MCG/KG/MIN 6.192 mls/hr IV .Q24H [facility] Rx#: [id number] Mvi, Adult No.4 with Vit 1086 K 10 ml Trace (Conc-1Ml/ Dose) 1 ml Parenteral Electrolytes 20 ml Sodium Acetate 64 meq Potassium Acetate 36 meq Magnesium Sulfate gm 1 gm Sodium Phosphate 9 mmol In Amino Acids 5 %/Dextrose 20 % 1,000 ml @ 90 mls/hr IV . BY DURATION [facility] Rx#: [id number] propofoL 1,000 mg In 200 173.066 86.998 Empty Bag 1 bag @ 15 MCG/ KG/MIN 9.288 mls/hr IV . [id number] [facility] Rx#:[id number] TPN/PPN 900 TPN 900 Lipid 189 21 Fat Emulsion 20% 250 ml 189 21 In Empty Bag 1 bag @ 21 mls/hr IV TuThSa@0900 [facility] Rx#:[id number] Output: Chest Tube Drainage 0 0 Chest Tube Right 0 0 Urine 630 1100 440 Other: Voiding Method Indwelling Catheter Indwelling Catheter Indwelling Catheter ABP, PAP, CO, CI - Last Documented Arterial Blood Pressure 173/76 - Exam GENERAL DESCRIPTION: An elderly male intubated with trach RESPIRATORY SYSTEM: Unlabored breathing , coarse breath sounds anteriorly HEART: S1 S2 regular rate and rhythm , ABDOMEN: Soft , no tenderness EXTREMITIES: No edema feet - Labs CBC & Chem 7: 01/31/24 05:01 01/31/24 09:09 Labs: Abnormal Lab Results - Last 24 Hours (Table) 01/30/24 01/30/24 01/30/24 Range/Units 11:48 18:11 23:44 WBC (3.8-10.6) k/uL RBC (4.30-5.90) m/uL Hgb (13.0-17.5) gm/dL Hct (39.0-53.0) % MCV (80.0-100.0) fL MCHC (31.0-37.0) g/dL RDW (11.5-15.5) % Neutrophils # (1.3-7.7) k/uL ABG pCO2 (35-45) mmHg ABG HCO3 (21-25) mmol/L ABG Total CO2 (19-24) mmol/L ABG O2 Saturation (94-97) % Hemoglobin (13.0-17.5) gm/dL Sodium (137-145) mmol/L Potassium (3.5-5.1) mmol/L BUN (9-20) mg/dL Creatinine (0.66-1.25) mg/dL Glucose (74-99) mg/dL POC Glucose (mg/dL) 174 H 141 H 173 H (70-110) mg/dL Calcium (8.4-10.2) mg/dL 01/31/24 01/31/24 01/31/24 Range/Units 04:34 05:01 05:01 WBC 15.4 H (3.8-10.6) k/uL RBC 2.34 L (4.30-5.90) m/uL Hgb 7.0 L (13.0-17.5) gm/dL Hct 23.5 L (39.0-53.0) % MCV 100.4 H (80.0-100.0) fL MCHC 30.0 L (31.0-37.0) g/dL RDW 16.4 H (11.5-15.5) % Neutrophils # 11.7 H (1.3-7.7) k/uL ABG pCO2 59 H (35-45) mmHg ABG HCO3 33 H (21-25) mmol/L ABG Total CO2 35 H (19-24) mmol/L ABG O2 Saturation 97.5 H (94-97) % Hemoglobin 7.3 L (13.0-17.5) gm/dL Sodium 136 L (137-145) mmol/L Potassium 5.4 H (3.5-5.1) mmol/L BUN 29 H (9-20) mg/dL Creatinine 0.61 L (0.66-1.25) mg/dL Glucose 152 H (74-99) mg/dL POC Glucose (mg/dL) (70-110) mg/dL Calcium 7.6 L (8.4-10.2) mg/dL 01/31/24 01/31/24 01/31/24 Range/Units 05:33 09:09 11:17 WBC (3.8-10.6) k/uL RBC (4.30-5.90) m/uL Hgb (13.0-17.5) gm/dL Hct (39.0-53.0) % MCV (80.0-100.0) fL MCHC (31.0-37.0) g/dL RDW (11.5-15.5) % Neutrophils # (1.3-7.7) k/uL ABG pCO2 (35-45) mmHg ABG HCO3 (21-25) mmol/L ABG Total CO2 (19-24) mmol/L ABG O2 Saturation (94-97) % Hemoglobin (13.0-17.5) gm/dL Sodium (137-145) mmol/L Potassium 5.4 H (3.5-5.1) mmol/L BUN (9-20) mg/dL Creatinine (0.66-1.25) mg/dL Glucose (74-99) mg/dL POC Glucose (mg/dL) 160 H 157 H (70-110) mg/dL Calcium (8.4-10.2) mg/dL Microbiology - Last 24 Hours (Table) 01/30/24 04:06 Gram Stain - Preliminary Sputum 01/28/24 15:40 Blood Culture - Preliminary Blood 01/29/24 13:40 Gram Stain - Preliminary Sputum Assessment and Plan (1) Sepsis Current Visit: Yes Status: Acute Code(s): A41.9 - SEPSIS, UNSPECIFIED ORGANISM SNOMED Code(s): 09311652 (2) Pneumonia Current Visit: Yes Status: Acute Code(s): J18.9 - PNEUMONIA, UNSPECIFIED ORGANISM SNOMED Code(s): 572903300 (3) Bacteremia Current Visit: Yes Status: Acute Code(s): R78.81 - BACTEREMIA SNOMED Code(s): 8701210 Plan: 1 the patient did have a new fever also noticed to have worsening of his respiratory status concerning for pneumonia 2repeat sputum and blood culture are currently growing Pseudomonas with sensitivities pending 3patient did have resolution of his fever white count is trending down we will continue vancomycin and meropenem while waiting for sensitivities to finalize if no MRSA vancomycin will be discontinued Dictation was produced using [employer] dictation software. please excuse any grammatical, word or spelling errors. Time with Patient: Less than 30
[2024-01-31] MEDS: FUROSEMIDE 10 MG/ML 4 ML VIAL IV STA (14:50)
--- NOTE | 2024-01-31 15:05 | P.PN ---
Subjective Patient seen and evaluated at bedside. Patient was having difficulty with vent, increased vent settings. J tube drainage slowing down. Objective - Vital Signs Vital signs: Vital Signs Temp 98.7 F 01/31/24 08:00 Pulse 99 01/31/24 12:23 Resp 32 H 01/31/24 12:23 BP 108/77 01/31/24 12:00 Pulse Ox 100 01/31/24 12:00 FiO2 50 01/31/24 12:00 Intake & Output 01/30/24 01/31/24 01/31/24 18:59 06:59 18:59 Intake Total 7834.738 8001.411 1114.784 Output Total 630 1100 665 Balance 2197.497 6767.411 449.784 Weight 99 kg Intake: IV 410 2331 867 0.9 Normal Saline @ KVO 220 150 60 Meropenem 1 gm In Sodium 99 100 Chloride 0.9% 100 ml @ 33 .3 mls/hr IVPB Q8HR [facility] Rx#:[id number] TPN 90 1080 540 Vancomycin 1,500 mg In 1002 167 Sodium Chloride 0.9% 500 ml 500 ml @ 167 mls/hr IVPB Q16H [facility] Rx#: [id number] metroNIDAZOLE-NS PMX 500 100 mg In Saline 1 100ml.bag @ 100 mls/hr IVPB Q8H [facility] Rx#:[id number] Intake, IV Titration 672.915 5429.411 247.784 Amount Cisatracurium 200 mg In 252.221 264.345 160.786 Sodium Chloride 0.9% 180 ml @ 1 MCG/KG/MIN 6.192 mls/hr IV .Q24H [facility] Rx#: [id number] Mvi, Adult No.4 with Vit 1086 K 10 ml Trace (Conc-1Ml/ Dose) 1 ml Parenteral Electrolytes 20 ml Sodium Acetate 64 meq Potassium Acetate 36 meq Magnesium Sulfate gm 1 gm Sodium Phosphate 9 mmol In Amino Acids 5 %/Dextrose 20 % 1,000 ml @ 90 mls/hr IV . BY DURATION [facility] Rx#: [id number] propofoL 1,000 mg In 200 173.066 86.998 Empty Bag 1 bag @ 15 MCG/ KG/MIN 9.288 mls/hr IV . [id number] [facility] Rx#:[id number] TPN/PPN 900 TPN 900 Lipid 189 21 Fat Emulsion 20% 250 ml 189 21 In Empty Bag 1 bag @ 21 mls/hr IV TuThSa@0900 [facility] Rx#:[id number] Output: Chest Tube Drainage 0 0 Chest Tube Right 0 0 Urine 630 1100 665 Other: Voiding Method Indwelling Catheter Indwelling Catheter Indwelling Catheter ABP, PAP, CO, CI - Last Documented Arterial Blood Pressure 173/76 - Exam gen: nad cv: rrr pul: non labored breathing abd: soft, non distended, non tender, no guarding, j tube drainage minimal, woound vac in place - Labs CBC & Chem 7: 01/31/24 05:01 01/31/24 09:09 Labs: Abnormal Lab Results - Last 24 Hours (Table) 01/30/24 01/30/24 01/31/24 Range/Units 18:11 23:44 04:34 WBC (3.8-10.6) k/uL RBC (4.30-5.90) m/uL Hgb (13.0-17.5) gm/dL Hct (39.0-53.0) % MCV (80.0-100.0) fL MCHC (31.0-37.0) g/dL RDW (11.5-15.5) % Neutrophils # (1.3-7.7) k/uL ABG pCO2 59 H (35-45) mmHg ABG HCO3 33 H (21-25) mmol/L ABG Total CO2 35 H (19-24) mmol/L ABG O2 Saturation 97.5 H (94-97) % Hemoglobin 7.3 L (13.0-17.5) gm/dL Sodium (137-145) mmol/L Potassium (3.5-5.1) mmol/L BUN (9-20) mg/dL Creatinine (0.66-1.25) mg/dL Glucose (74-99) mg/dL POC Glucose (mg/dL) 141 H 173 H (70-110) mg/dL Calcium (8.4-10.2) mg/dL 01/31/24 01/31/24 01/31/24 Range/Units 05:01 05:01 05:33 WBC 15.4 H (3.8-10.6) k/uL RBC 2.34 L (4.30-5.90) m/uL Hgb 7.0 L (13.0-17.5) gm/dL Hct 23.5 L (39.0-53.0) % MCV 100.4 H (80.0-100.0) fL MCHC 30.0 L (31.0-37.0) g/dL RDW 16.4 H (11.5-15.5) % Neutrophils # 11.7 H (1.3-7.7) k/uL ABG pCO2 (35-45) mmHg ABG HCO3 (21-25) mmol/L ABG Total CO2 (19-24) mmol/L ABG O2 Saturation (94-97) % Hemoglobin (13.0-17.5) gm/dL Sodium 136 L (137-145) mmol/L Potassium 5.4 H (3.5-5.1) mmol/L BUN 29 H (9-20) mg/dL Creatinine 0.61 L (0.66-1.25) mg/dL Glucose 152 H (74-99) mg/dL POC Glucose (mg/dL) 160 H (70-110) mg/dL Calcium 7.6 L (8.4-10.2) mg/dL 01/31/24 01/31/24 Range/Units 09:09 11:17 WBC (3.8-10.6) k/uL RBC (4.30-5.90) m/uL Hgb (13.0-17.5) gm/dL Hct (39.0-53.0) % MCV (80.0-100.0) fL MCHC (31.0-37.0) g/dL RDW (11.5-15.5) % Neutrophils # (1.3-7.7) k/uL ABG pCO2 (35-45) mmHg ABG HCO3 (21-25) mmol/L ABG Total CO2 (19-24) mmol/L ABG O2 Saturation (94-97) % Hemoglobin (13.0-17.5) gm/dL Sodium (137-145) mmol/L Potassium 5.4 H (3.5-5.1) mmol/L BUN (9-20) mg/dL Creatinine (0.66-1.25) mg/dL Glucose (74-99) mg/dL POC Glucose (mg/dL) 157 H (70-110) mg/dL Calcium (8.4-10.2) mg/dL Microbiology - Last 24 Hours (Table) 01/30/24 04:06 Gram Stain - Preliminary Sputum Sputum Culture - Preliminary Pseudomonas aeruginosa 01/29/24 13:40 Gram Stain - Preliminary Sputum Sputum Culture - Preliminary Pseudomonas aeruginosa 01/28/24 15:40 Blood Culture - Preliminary Blood Assessment and Plan Assessment: 1. 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 Status post J-tube placement and revision for small bowel obstruction 2. Abdominal wound dehiscence status post wound VAC placement 3. Status post tracheostomy PLAN: -At this time, patients J tube site fistula is mature and it is of no harm to the patient if the J tube has been pulled back as the patient has not been getting any tube feeds. Patients nutritional support will be from TPN. -Wound VAC scheduled changes. -Continue supportive care -Continue TPN for nutrition support Daron Irby DO [facility] [phone] Time with Patient: Less than 30
[2024-01-31 17:27] LABS: Glucose,Whole Blood 143 mg/dL (70-110)
--- NOTE | 2024-01-31 18:03 | P.PN ---
Subjective Progress Note Date: 01/31/24 January 22, 2024: ICU. Patient was on CPAP this morning. Plan was to take him to trach only this afternoon. Getting IV Precedex. Awake. Moves his head to command. Was able to move his right arm. Wound VAC remains in place. Right chest tube/pigtail catheter in place. Some air leak. Minimal output from the right RAYA drain. Secretions persist through the left J-tube site. at the bedside. Spoke to the hospice social worker David. Looking into long-term placement. 01/23/24 Patient is evaluated in the ICU at the bedside. Feels anxious today, precedex is being weaned. He is awake alert. He is edematous. Abdominal wound vac in place. Right chest tube/pigtail in place. 55 ML of drainage overnight. Right sided RAYA drain. J tube in place. On TPN. He is pending approval for [facility] vs. [facility]. Blood work today reveals a sodium level of 131. Continues on IV Ciprofloxacin/ IV fluconazole. 01/24/2024 Patient remains in the intensive care unit as remains at the bedside. He was weaned off the Precedex today did receive a dose of Ativan this morning however his mood has much improved. Abdominal wound VAC in place with evidence of purulent drainage in the canister. He has had 15 mL of drainage overnight from the right sided chest tube. J-tube remains in place. He continues on TPN. He continues on IV ciprofloxacin and IV fluconazole with plans for repeat abdominal pelvis CT today by infectious disease and consider discontinuation of antibiotics afterwards. Sodium level today is 130. Still pending approval for discharge to [facility] versus [facility]. 01/25/2024 Patient remains in the intensive care unit he continues off IV Precedex at this time. Continues with TPN. Repeat chest abdomen pelvis CT completed yesterday which shows a decrease seen in the hydropneumothorax within the right lung base with drainage catheter there is no change in the bibasilar infiltrates and small left effusion. There is interval development of a dilated small bowel loop in the mid abdomen consistent with either a focal ileus or partial obstruction. There are findings suggestive of acute diverticulitis of the sigmoid colon with a small pericolic phlegmon abscess however is decreasing in the interval from compared in the prior study from 3.4 cm to 3 cm. There is moderate anasarca and the peritoneal dialysis catheter and small bowel drainage tube unchanged in position. Blood work today reveals a white blood cell count of 20.1, hemoglobin 8.3, sodium 131, BUN of 21, creatinine 0.66, magnesium 1.7. He is on IV Cipro. IV Flagyl was added today by infectious disease. Was made a full code at request of family. 01/26/2024 Patient remains in the ICU. More awake alert and oriented today. He continues on the trach collar. Sounds less congested. Continues on IV cipro and IV flagyl. White blood cell count better today at 16.3. Hgb 7.2. Sodium 130, potassium 3.4. Continues on TPN. 01/27/2024 Patient is seen in follow-up continues to be in the ICU with multiple consul tations following. Family at the bedside and patient is more awake although continues with bronchial congestion and frequent suctioning with the trach collar. Patient remains off Precedex. Patient continues on antibiotics for possible lung abscess that was positive for Pseudomonas with a persistent air leak. Minimal output of the pigtail catheter noted. FiO2 is 40% trach collar maintained on 10 L oxygen. Patient continues on TPN and will adjust accordingly per dietary and pharmacy. Overall prognosis remains extremely poor. Patient remains full code. Per nursing staff patient was denied from [facility] with case management/social work following. 01/28/2024 Patient is eval in follow-up today in the intensive care unit. He had an axillary temp 101.6 for this reason a septic protocol was done including urinalysis blood cultures and viral panel. He remains on IV cipro and IV flagyl. Airleak to the chest tube remains to suction. He continues on a trach collar 40% FiO2 with oxygen at 8 L. He continues on TPN and lipids adjustments per dietary and pharmacy. We are currently not using the J-tube for feedings at this time. He has a wound VAC in place to the midline abdominal incision. He is more awake alert and oriented and less agitated. Sodium level today is 133. Renal function is within normal limits. 01/29/2024 Patient is evaluated today in the ICU with family at the bedside. He continues to have elevated temps. He is more lethargic. White count 20.2 today. Septic work up started. Repeat urinalysis not overly suggesting of infection. Viral panel negative. Chest xray today reveals patchy and confluent bilateral airspace disease similar to slightly worsened. Right-sided pleural catheter demonstrated. There is similar small right pleural effusion. He was started on IV vancomyin, IV meropenem and IV metronidazole. The cipro has been discontinued. Lactic acid 2.3. Sodium 134, renal function normal. Hgb 7.6. Tube feedings remain on hold. Not safe to restart and he continues on TPN/Lipids. 01/30/2024 Patient evaluated today in follow up. Remains in the ICU. Underwent bronchoscopy and repair of a tear in the tracheostomy cuff. Deep sputum culture pending. Patient remains on the mechanical ventilator with ABGs today showing pH level of 0.33, pCO2 of 59, pO2 of 152, HCO3 of 41, total CO2 of 33, hemoglobin 6.6. Lactic acid has normalized. White blood cell count 19.3 today hemoglobin 7.3. Patient is continued on IV propofol as well as backs. Continues on antibiotics in the form of IV vancomycin, IV meropenem, IV metronidazole. Continues on TPN lipids. Chest xray improved throughout both lung ramirez with mild improved aeration at the right lung base. No pneumothorax present. Right-sided chest tube remains in place to suction. 01/31/2024 Patient evaluated today in follow up in the intensive care unit. Remains on the mechanical ventilator, 50% FiO2. Family at the bedside and hoping for extubation today. Continues on TPN/Lipids. Labs today reveal white blood cell count 15.4, hgb 7.0, platelet count 169. Sodium 136, potassium 5.4. BUN 29, creatinine 0.61. Chest xray today reveals ongoing multifocal patchy and confluent airspace disease. A small to moderate right pleural effusion may be slightly increased. Sputum culture from bronchoscopy continues to show pseudomonas. Chest tube remains in place. on IV vancomycin and IV meropenem. REVIEW OF SYSTEMS: Unable to complete patient with increasing lethargy today. PHYSICAL EXAMINATION: GENERAL: The patient is alert and oriented x2, not in any acute distress. Well developed, ill-appearing, elderly appearing. Trach Collar with an FiO2 of 40%, 10 L O2. HEENT: Pupils are round and equally reacting to light. EOMI. No scleral icterus. No conjunctival pallor. Normocephalic, atraumatic. No pharyngeal erythema. No thyromegaly. CARDIOVASCULAR: S1 and S2 present. No murmurs, rubs, or gallops. PULMONARY: Chest is clear to auscultation, no wheezing or crackles. Diminished. ABDOMEN: Soft, nontender, nondistended, normoactive bowel sounds. No palpable organomegaly. MUSCULOSKELETAL: No joint swelling or deformity. EXTREMITIES: No cyanosis, clubbing, or pedal edema. Peripheral edema 1+ NEUROLOGICAL: Diffuse weakness throughout SKIN: No rashes. Stage 2 sacral decub Assessment -Worsening leukocytosis septic work up initiated. -Large superficial gastric antral ulceration involving the gastric antrum extending into the pylorus with gastric outlet obstruction. 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 Status post Jtube insertion and patient has been NPO. -Acute hypoxemic respiratory failure from aspiration pneumonia on admission requring mechanical ventilation. Now post tracheostomy. -Also Bacterial pneumonia and sepsis and septic shock present on admission with right lung abscess cultures showing citrobacter; pseudomonas, klebsiella. Status post bronch on 01/07/24. -Acute kidney injury. Possible ATN from hypotensive shock: Resolved -Breakdown of tracheostomy stoma site. Dressing in place -Acute pulmonary edema and fluid overload from hypoalbuminemic state and fluids from IV.: Has been getting Lasix and dialysis: Both held -Altered mentation. Possibly encephalopathy. Could be delirium. Was improved. -Generalized cerebral dysfunction on EEG; [place] on oral keppra -Critical care poly- Pedro neuropathy: Slow to respond -Gallstones, asymptomatic -Small l bowel perforation at site of jejunostomy tube tip with balloon..: Portion of small bowel resected. On November 24. New J-tube was placed.- drainage to gravity:-Now discontinued December 19: J-tube blocked. J-tube replaced on December 20 over wire December 21: Leaking around the J-tube site. Feeding held December 23: J feeding was started yesterday evening but again started leaking increasingly around the J-tube site-feeding held again December 24: J-tube feeding has been held. -Midline abdominal incision wound dehiscence midline wound Vac in place. -Acute recurrent atrial fibrillation-converted to sinus rhythm -Hypertension, currently hypotensive. Currently off pressor support. -Normocytic anemia likely to secondary underlying lymphoma. Also anemia of bl ood draw. Underlying iron deficiency; received PRBC x 6 units and IV iron. -Severe thrombocytopenia. Would consider coagulation disorder secondary to infection., In the setting of underlying lymphoma.: Fluctuating with infection. Currently resolved. -Acute blood loss anemia -Sacral stage II decub ulcer -GERD -Acute diarrhea secondary to tube feeding. C. difficile ruled out. Resolved. Tube feedings on hold. GI prophylaxis Full Code Patient is now post bronchoscopy and tracheostomy tube replacement he continues today on the mechanical ventilator and under IV sedation. White blood cell count 19 today based off the abdominal pelvis chest CT results patient is been started on IV metronidazole in conjunction with IV vancomycin and IV meropenem. TPN lipids continue. Surgery recommending to continue holding off using the Jtube and to not change the position. Discussed CT results ileus vs. partial obstruction; per surgery this is not a concern at this time are likely just an ileus and to continue with the suppositories and TPN feedings. Chest tube remains in place, noted airleak and this has been placed to suction. RAYA drain was removed. Wound vac to the midline abdomen remains in place. Continue pressure offloading and barrier cream to the sacral decub. Tracheostomy in place and remains on the trach collar. Patient was denied going to [facility] and per nursing staff and case management/social work, no safe transportation planner excepting ECF or facility at this time. Overall prognosis is extremely poor and guarded at this time. The impression and plan of care has been dictated by Carol Ulrich Nurse Practitioner as directed. Dr. Jozef MD I have performed a history and physical examination and medical decision making of this patient, discussed the same with the dictator, and agree with the dictators assessment and plan as written, documented as a scribe. Based on total visit time, I have performed more than 50% of this visit. Objective - Vital Signs Vital signs: Vital Signs Temp 98.7 F 01/31/24 08:00 Pulse 99 01/31/24 12:23 Resp 32 H 01/31/24 12:23 BP 108/77 01/31/24 12:00 Pulse Ox 100 01/31/24 12:00 FiO2 50 01/31/24 12:00 Intake & Output 01/30/24 01/31/24 01/31/24 18:59 06:59 18:59 Intake Total 5189.863 9504.411 1212.307 Output Total 630 1100 665 Balance 3067.961 8111.411 547.307 Weight 99 kg Intake: IV 410 2331 867 0.9 Normal Saline @ KVO 220 150 60 Meropenem 1 gm In Sodium 99 100 Chloride 0.9% 100 ml @ 33 .3 mls/hr IVPB Q8HR [facility] Rx#:[id number] TPN 90 1080 540 Vancomycin 1,500 mg In 1002 167 Sodium Chloride 0.9% 500 ml 500 ml @ 167 mls/hr IVPB Q16H [facility] Rx#: [id number] metroNIDAZOLE-NS PMX 500 100 mg In Saline 1 100ml.bag @ 100 mls/hr IVPB Q8H [facility] Rx#:[id number] Intake, IV Titration 570.296 2475.411 345.307 Amount Cisatracurium 200 mg In 252.221 264.345 160.786 Sodium Chloride 0.9% 180 ml @ 1 MCG/KG/MIN 6.192 mls/hr IV .Q24H [facility] Rx#: [id number] Mvi, Adult No.4 with Vit 1086 K 10 ml Trace (Conc-1Ml/ Dose) 1 ml Parenteral Electrolytes 20 ml Sodium Acetate 64 meq Potassium Acetate 36 meq Magnesium Sulfate gm 1 gm Sodium Phosphate 9 mmol In Amino Acids 5 %/Dextrose 20 % 1,000 ml @ 90 mls/hr IV . BY DURATION [facility] Rx#: [id number] propofoL 1,000 mg In 200 173.066 184.521 Empty Bag 1 bag @ 15 MCG/ KG/MIN 9.288 mls/hr IV . [id number] [facility] Rx#:[id number] TPN/PPN 900 TPN 900 Lipid 189 21 Fat Emulsion 20% 250 ml 189 21 In Empty Bag 1 bag @ 21 mls/hr IV TuThSa@0900 [facility] Rx#:[id number] Output: Chest Tube Drainage 0 0 Chest Tube Right 0 0 Urine 630 1100 665 Other: Voiding Method Indwelling Catheter Indwelling Catheter Indwelling Catheter ABP, PAP, CO, CI - Last Documented Arterial Blood Pressure 173/76 - Labs CBC & Chem 7: 01/31/24 05:01 01/31/24 09:09 Labs: Abnormal Lab Results - Last 24 Hours (Table) 01/30/24 01/30/24 01/31/24 Range/Units 18:11 23:44 04:34 WBC (3.8-10.6) k/uL RBC (4.30-5.90) m/uL Hgb (13.0-17.5) gm/dL Hct (39.0-53.0) % MCV (80.0-100.0) fL MCHC (31.0-37.0) g/dL RDW (11.5-15.5) % Neutrophils # (1.3-7.7) k/uL ABG pCO2 59 H (35-45) mmHg ABG HCO3 33 H (21-25) mmol/L ABG Total CO2 35 H (19-24) mmol/L ABG O2 Saturation 97.5 H (94-97) % Hemoglobin 7.3 L (13.0-17.5) gm/dL Sodium (137-145) mmol/L Potassium (3.5-5.1) mmol/L BUN (9-20) mg/dL Creatinine (0.66-1.25) mg/dL Glucose (74-99) mg/dL POC Glucose (mg/dL) 141 H 173 H (70-110) mg/dL Calcium (8.4-10.2) mg/dL 01/31/24 01/31/24 01/31/24 Range/Units 05:01 05:01 05:33 WBC 15.4 H (3.8-10.6) k/uL RBC 2.34 L (4.30-5.90) m/uL Hgb 7.0 L (13.0-17.5) gm/dL Hct 23.5 L (39.0-53.0) % MCV 100.4 H (80.0-100.0) fL MCHC 30.0 L (31.0-37.0) g/dL RDW 16.4 H (11.5-15.5) % Neutrophils # 11.7 H (1.3-7.7) k/uL ABG pCO2 (35-45) mmHg ABG HCO3 (21-25) mmol/L ABG Total CO2 (19-24) mmol/L ABG O2 Saturation (94-97) % Hemoglobin (13.0-17.5) gm/dL Sodium 136 L (137-145) mmol/L Potassium 5.4 H (3.5-5.1) mmol/L BUN 29 H (9-20) mg/dL Creatinine 0.61 L (0.66-1.25) mg/dL Glucose 152 H (74-99) mg/dL POC Glucose (mg/dL) 160 H (70-110) mg/dL Calcium 7.6 L (8.4-10.2) mg/dL 01/31/24 01/31/24 Range/Units 09:09 11:17 WBC (3.8-10.6) k/uL RBC (4.30-5.90) m/uL Hgb (13.0-17.5) gm/dL Hct (39.0-53.0) % MCV (80.0-100.0) fL MCHC (31.0-37.0) g/dL RDW (11.5-15.5) % Neutrophils # (1.3-7.7) k/uL ABG pCO2 (35-45) mmHg ABG HCO3 (21-25) mmol/L ABG Total CO2 (19-24) mmol/L ABG O2 Saturation (94-97) % Hemoglobin (13.0-17.5) gm/dL Sodium (137-145) mmol/L Potassium 5.4 H (3.5-5.1) mmol/L BUN (9-20) mg/dL Creatinine (0.66-1.25) mg/dL Glucose (74-99) mg/dL POC Glucose (mg/dL) 157 H (70-110) mg/dL Calcium (8.4-10.2) mg/dL Microbiology - Last 24 Hours (Table) 01/30/24 04:06 Gram Stain - Preliminary Sputum Sputum Culture - Preliminary Pseudomonas aeruginosa 01/29/24 13:40 Gram Stain - Preliminary Sputum Sputum Culture - Preliminary Pseudomonas aeruginosa 01/28/24 15:40 Blood Culture - Preliminary Blood Assessment and Plan Time with Patient: Less than 30
[2024-01-31 23:39] LABS: Glucose,Whole Blood 142 mg/dL (70-110)
[2024-02-01] MEDS ORDERED: VANCOMYCIN TROUGH DUE 1 EACH MISC MISCELLANE ONE (05:00)
[2024-02-01 06:01] LABS: Glucose,Whole Blood 152 mg/dL (70-110)
[2024-02-01 06:02] LABS: ABG Base Excess 10.9 mmol/L; ABG HCO3 36 mmol/L (21-25); ABG Oxygen Saturation 99.6 % (94-97); ABG PCO2 53 mmHg (35-45); ABG PH 7.44 (7.35-7.45); ABG PO2 115 mmHg (83-108); ABG TCO2 38 mmol/L (19-24); Allen Test Performed? Yes
--- NOTE | 2024-02-01 07:09 | XR ---
EXAMINATION TYPE: XR chest 1V portable DATE OF EXAM: 02/01/2024 COMPARISON: 01/31/2024 CLINICAL INDICATION: Male, 73 years old with history of increase O2 demands; TECHNIQUE: Single frontal view of the chest is obtained. FINDINGS: There is a tracheostomy tube unchanged in position. There is a Mediport catheter in the right atrium. There is a pigtail catheter in right lower lobe pleural space. There is a left-sided PICC line terminating in the SVC/RA junction The scattered interstitial and partially consolidative infiltrates and bilateral pleural effusions ar e unchanged compared to previous. There is no pneumothorax. The osseous structures are intact IMPRESSION: No change in the marked diffuse cardiopulmonary process as described above. [facility], , 02/01/2024 7:07 AM
[2024-02-01 07:26] LABS: Anisocytosis Slight; HCT 22.4 % (39.0-53.0); HGB 7.2 gm/dL (13.0-17.5); Hypochromasia Slight; MCH 29.9 pg (25.0-35.0); MCHC 32.1 g/dL (31.0-37.0); Mean Platelet Volume 8.1; WBC 15.3 k/uL (3.8-10.6)
[2024-02-01 07:27] LABS: MCV 93.3 fL (80.0-100.0); Platelet Count 408 k/uL (150-450)
[2024-02-01 07:34] LABS: African American GFR (CKD) >90 (>60 ml/min/1.73 sqM); Anion Gap 2 mmol/L; Blood Urea Nitrogen 33 mg/dL (9-20); Calcium 7.6 mg/dL (8.4-10.2); Carbon Dioxide 34 mmol/L (22-30); Chloride 104 mmol/L (98-107); Glucose 150 mg/dL (74-99); Non-African American GFR(CKD) >90 (>60 ml/min/1.73 sqM); Sodium 140 mmol/L (137-145)
--- NOTE | 2024-02-01 10:00 | P.PN ---
Subjective Patient seen and evaluated at bedside. Patient much more alert this am, vent settings have decreased Objective - Vital Signs Vital signs: Vital Signs Temp 99.3 F 02/01/24 08:00 Pulse 100 02/01/24 08:20 Resp 33 H 02/01/24 08:20 BP 138/88 02/01/24 08:00 Pulse Ox 100 02/01/24 08:00 FiO2 50 02/01/24 08:00 Intake & Output 01/31/24 02/01/24 02/01/24 18:59 06:59 18:59 Intake Total 4053.132 2559.581 728.638 Output Total 3665 2575 460 Balance -1706.707 -593.419 268.638 Weight 101.3 kg Intake: IV 1557 1800 300 0.9 Normal Saline @ KVO 110 120 30 Meropenem 1 gm In Sodium 200 100 Chloride 0.9% 100 ml @ 33 .3 mls/hr IVPB Q8HR [facility] Rx#:[id number] TPN 1080 1080 270 Vancomycin 1,500 mg In 167 500 Sodium Chloride 0.9% 500 ml 500 ml @ 167 mls/hr IVPB Q16H [facility] Rx#: [id number] Intake, IV Titration 401.293 181.581 428.638 Amount Cisatracurium 200 mg In 160.786 Sodium Chloride 0.9% 180 ml @ 1 MCG/KG/MIN 6.192 mls/hr IV .Q24H [facility] Rx#: [id number] Fat Emulsion 20% 250 ml 250 In Empty Bag 1 bag @ 21 mls/hr IV TuThSa@0900 [facility] Rx#:[id number] Meropenem 1 gm In Sodium 100 Chloride 0.9% 100 ml @ 33 .3 mls/hr IVPB Q8HR [facility] Rx#:[id number] propofoL 1,000 mg In 240.507 181.581 78.638 Empty Bag 1 bag @ 15 MCG/ KG/MIN 9.288 mls/hr IV . [id number] [facility] Rx#:[id number] Output: Chest Tube Drainage 0 0 Chest Tube Right 0 0 Urine 3665 2575 460 Other: Voiding Method Indwelling Catheter Indwelling Catheter # Bowel Movements 1 ABP, PAP, CO, CI - Last Documented Arterial Blood Pressure 173/76 - Exam gen: nad cv: rrr pul: non labored breathing abd: soft, non distended, non tender, no guarding, j tube drainage minimal, woound vac in place - Labs CBC & Chem 7: 02/01/24 07:02 02/01/24 07:02 Labs: Abnormal Lab Results - Last 24 Hours (Table) 01/31/24 01/31/24 01/31/24 Range/Units 11:17 17:24 23:37 WBC (3.8-10.6) k/uL RBC (4.30-5.90) m/uL Hgb (13.0-17.5) gm/dL Hct (39.0-53.0) % RDW (11.5-15.5) % ABG pCO2 (35-45) mmHg ABG pO2 (83-108) mmHg ABG HCO3 (21-25) mmol/L ABG Total CO2 (19-24) mmol/L ABG O2 Saturation (94-97) % Hemoglobin (13.0-17.5) gm/dL Carbon Dioxide (22-30) mmol/L BUN (9-20) mg/dL Creatinine (0.66-1.25) mg/dL Glucose (74-99) mg/dL POC Glucose (mg/dL) 157 H 143 H 142 H (70-110) mg/dL Calcium (8.4-10.2) mg/dL 02/01/24 02/01/24 02/01/24 Range/Units 05:59 05:59 07:02 WBC (3.8-10.6) k/uL RBC (4.30-5.90) m/uL Hgb (13.0-17.5) gm/dL Hct (39.0-53.0) % RDW (11.5-15.5) % ABG pCO2 53 H (35-45) mmHg ABG pO2 115 H (83-108) mmHg ABG HCO3 36 H (21-25) mmol/L ABG Total CO2 38 H (19-24) mmol/L ABG O2 Saturation 99.6 H (94-97) % Hemoglobin 6.8 L* (13.0-17.5) gm/dL Carbon Dioxide 34 H (22-30) mmol/L BUN 33 H (9-20) mg/dL Creatinine 0.59 L (0.66-1.25) mg/dL Glucose 150 H (74-99) mg/dL POC Glucose (mg/dL) 152 H (70-110) mg/dL Calcium 7.6 L (8.4-10.2) mg/dL 02/01/24 Range/Units 07:02 WBC 15.3 H (3.8-10.6) k/uL RBC 2.40 L (4.30-5.90) m/uL Hgb 7.2 L (13.0-17.5) gm/dL Hct 22.4 L (39.0-53.0) % RDW 16.0 H (11.5-15.5) % ABG pCO2 (35-45) mmHg ABG pO2 (83-108) mmHg ABG HCO3 (21-25) mmol/L ABG Total CO2 (19-24) mmol/L ABG O2 Saturation (94-97) % Hemoglobin (13.0-17.5) gm/dL Carbon Dioxide (22-30) mmol/L BUN (9-20) mg/dL Creatinine (0.66-1.25) mg/dL Glucose (74-99) mg/dL POC Glucose (mg/dL) (70-110) mg/dL Calcium (8.4-10.2) mg/dL Microbiology - Last 24 Hours (Table) 01/28/24 15:40 Blood Culture - Preliminary Blood 01/30/24 04:06 Gram Stain - Preliminary Sputum Sputum Culture - Preliminary Pseudomonas aeruginosa 01/29/24 13:40 Gram Stain - Preliminary Sputum Sputum Culture - Preliminary Pseudomonas aeruginosa Assessment and Plan Assessment: 1. 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 Status post J-tube placement and revision for small bowel obstruction 2. Abdominal wound dehiscence status post wound VAC placement 3. Status post tracheostomy PLAN: -At this time, patients J tube site fistula is mature and it is of no harm to the patient if the J tube has been pulled back as the patient has not been g etting any tube feeds. Patients nutritional support will be from TPN. -Wound VAC scheduled changes. -Continue supportive care -Continue TPN for nutrition support Daron Ibry DO [facility] [phone] Time with Patient: Less than 30
[2024-02-01] MEDS: DEXMEDETOMIDINE/0.9% NACL(PMX) 400 MCG in EMPTY BAG 1 BAG IV SCH (10:06)
[2024-02-01] MEDS: FUROSEMIDE 10 MG/ML 2 ML VIAL IV ONE (10:57)
[2024-02-01 11:58] LABS: Glucose,Whole Blood 168 mg/dL (70-110)
[2024-02-01] MEDS: ACETAMINOPHEN SUPPOSITORY 650 MG SUPP RECTAL PRN (12:10)
--- NOTE | 2024-02-01 12:34 | P.PN ---
Subjective Progress Note Date: 02/01/24 January 22, 2024: ICU. Patient was on CPAP this morning. Plan was to take him to trach only this afternoon. Getting IV Precedex. Awake. Moves his head to command. Was able to move his right arm. Wound VAC remains in place. Right chest tube/pigtail catheter in place. Some air leak. Minimal output from the right ARYA drain. Secretions persist through the left J-tube site. at the bedside. Spoke to the manager social David. Looking into long-term placement. 01/23/24 Patient is evaluated in the ICU at the bedside. Feels anxious today, precedex is being weaned. He is awake alert. He is edematous. Abdominal wound vac in place. Right chest tube/pigtail in place. 55 ML of drainage overnight. Right sided RAYA drain. J tube in place. On TPN. He is pending approval for select specialty vs. [facility]. Blood work today reveals a sodium level of 131. Continues on IV Ciprofloxacin/ IV fluconazole. 01/24/2024 Patient remains in the intensive care unit as remains at the bedside. He was weaned off the Precedex today did receive a dose of Ativan this morning however his mood has much improved. Abdominal wound VAC in place with evidence of purulent drainage in the canister. He has had 15 mL of drainage overnight from the right sided chest tube. J-tube remains in place. He continues on TPN. He continues on IV ciprofloxacin and IV fluconazole with plans for repeat abdominal pelvis CT today by infectious disease and consider discontinuation of antibiotics afterwards. Sodium level today is 130. Still pending approval for discharge to LTAC versus [facility]. 01/25/2024 Patient remains in the intensive care unit he continues off IV Precedex at this time. Continues with TPN. Repeat chest abdomen pelvis CT completed yesterday which shows a decrease seen in the hydropneumothorax within the right lung base with drainage catheter there is no change in the bibasilar infiltrates and small left effusion. There is interval development of a dilated small bowel loop in the mid abdomen consistent with either a focal ileus or partial obstruction. There are findings suggestive of acute diverticulitis of the sigmoid colon with a small pericolic phlegmon abscess however is decreasing in the interval from compared in the prior study from 3.4 cm to 3 cm. There is moderate anasarca and the peritoneal dialysis catheter and small bowel drainage tube unchanged in position. Blood work today reveals a white blood cell count of 20.1, hemoglobin 8.3, sodium 131, BUN of 21, creatinine 0.66, magnesium 1.7. He is on IV Cipro. IV Flagyl was added today by infectious disease. Was made a full code at request of family. 01/26/2024 Patient remains in the ICU. More awake alert and oriented today. He continues on the trach collar. Sounds less congested. Continues on IV cipro and IV flagyl. White blood cell count better today at 16.3. Hgb 7.2. Sodium 130, potassium 3.4. Continues on TPN. 01/27/2024 Patient is seen in follow-up continues to be in the ICU with multiple consul tations following. Family at the bedside and patient is more awake although continues with bronchial congestion and frequent suctioning with the trach collar. Patient remains off Precedex. Patient continues on antibiotics for possible lung abscess that was positive for Pseudomonas with a persistent air leak. Minimal output of the pigtail catheter noted. FiO2 is 40% trach collar maintained on 10 L oxygen. Patient continues on TPN and will adjust accordingly per dietary and pharmacy. Overall prognosis remains extremely poor. Patient remains full code. Per nursing staff patient was denied from [facility] specialties with case management/social work following. 01/28/2024 Patient is eval in follow-up today in the intensive care unit. He had an axillary temp 101.6 for this reason a septic protocol was done including urinalysis blood cultures and viral panel. He remains on IV cipro and IV flagyl. Airleak to the chest tube remains to suction. He continues on a trach collar 40% FiO2 with oxygen at 8 L. He continues on TPN and lipids adjustments per dietary and pharmacy. We are currently not using the J-tube for feedings at this time. He has a wound VAC in place to the midline abdominal incision. He is more awake alert and oriented and less agitated. Sodium level today is 133. Renal function is within normal limits. 01/29/2024 Patient is evaluated today in the ICU with family at the bedside. He continues to have elevated temps. He is more lethargic. White count 20.2 today. Septic work up started. Repeat urinalysis not overly suggesting of infection. Viral panel negative. Chest xray today reveals patchy and confluent bilateral airspace disease similar to slightly worsened. Right-sided pleural catheter demonstrated. There is similar small right pleural effusion. He was started on IV vancomyin, IV meropenem and IV metronidazole. The cipro has been discontinued. Lactic acid 2.3. Sodium 134, renal function normal. Hgb 7.6. Tube feedings remain on hold. Not safe to restart and he continues on TPN/Lipids. 01/30/2024 Patient evaluated today in follow up. Remains in the ICU. Underwent bronchoscopy and repair of a tear in the tracheostomy cuff. Deep sputum culture pending. Patient remains on the mechanical ventilator with ABGs today showing pH level of 0.33, pCO2 of 59, pO2 of 152, HCO3 of 41, total CO2 of 33, hemoglobin 6.6. Lactic acid has normalized. White blood cell count 19.3 today hemoglobin 7.3. Patient is continued on IV propofol as well as backs. Continues on antibiotics in the form of IV vancomycin, IV meropenem, IV metronidazole. Continues on TPN lipids. Chest xray improved throughout both lung ramirez with mild improved aeration at the right lung base. No pneumothorax present. Right-sided chest tube remains in place to suction. 01/31/2024 Patient evaluated today in follow up in the intensive care unit. Remains on the mechanical ventilator, 50% FiO2. Family at the bedside and hoping for extubation today. Continues on TPN/Lipids. Labs today reveal white blood cell count 15.4, hgb 7.0, platelet count 169. Sodium 136, potassium 5.4. BUN 29, creatinine 0.61. Chest xray today reveals ongoing multifocal patchy and confluent airspace disease. A small to moderate right pleural effusion may be slightly increased. Sputum culture from bronchoscopy continues to show pseudomonas. Chest tube remains in place. on IV vancomycin and IV meropenem. 02/01/2024 Evaluated today in follow-up in the intensive care unit. Patient remains on me chanical ventilator with a 50% FiO2. His repeat sputum cultures from the bronchoscopy continue to show Pseudomonas. He continues on IV vancomycin and IV meropenem infectious diseases following closely. He continues with a wound VAC to his midline abdominal incision. Per surgery they feel that the fistula from his J-tube is mature he is currently off of tube feedings at this time though continues on TPN lipids. White blood cell count today is 15.3, hemoglobin 7.2, sodium 140, potassium 5.0, BUN of 33, creatinine 0.59. 2.0 mL of drainage over the last couple days. His chest x-ray today reveals no change in the marked diffuse cardiopulmonary process including scattered interstitial and partially consolidative infiltrates and bilateral pleural effusions which remain unchanged as compared to prior. REVIEW OF SYSTEMS: Unable to complete patient with increasing lethargy today. PHYSICAL EXAMINATION: GENERAL: The patient is alert and oriented x2, not in any acute distress. Well developed, ill-appearing, elderly appearing. Trach Collar with an FiO2 of 40%, 10 L O2. HEENT: Pupils are round and equally reacting to light. EOMI. No scleral icterus. No conjunctival pallor. Normocephalic, atraumatic. No pharyngeal erythema. No thyromegaly. CARDIOVASCULAR: S1 and S2 present. No murmurs, rubs, or gallops. PULMONARY: Chest is clear to auscultation, no wheezing or crackles. Diminished. ABDOMEN: Soft, nontender, nondistended, normoactive bowel sounds. No palpable organomegaly. MUSCULOSKELETAL: No joint swelling or deformity. EXTREMITIES: No cyanosis, clubbing, or pedal edema. Peripheral edema 1+ NEUROLOGICAL: Diffuse weakness throughout SKIN: No rashes. Stage 2 sacral decub Assessment -Worsening leukocytosis septic work up initiated. -Large superficial gastric antral ulceration involving the gastric antrum extending into the pylorus with gastric outlet obstruction. 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 Status post Jtube insertion and patient has been NPO. -Acute hypoxemic respiratory failure from aspiration pneumonia on admission requring mechanical ventilation. Now post tracheostomy. -Also Bacterial pneumonia and sepsis and septic shock present on admission with right lung abscess cultures showing citrobacter; pseudomonas, klebsiella. Status post bronch on 01/07/24. -Acute kidney injury. Possible ATN from hypotensive shock: Resolved -Breakdown of tracheostomy stoma site. Dressing in place -Acute pulmonary edema and fluid overload from hypoalbuminemic state and fluids from IV.: Has been getting Lasix and dialysis: Both held -Altered mentation. Possibly encephalopathy. Could be delirium. Was improved. -Generalized cerebral dysfunction on EEG; [place] on oral keppra -Critical care poly- Pedro neuropathy: Slow to respond -Gallstones, asymptomatic -Small l bowel perforation at site of jejunostomy tube tip with balloon..: Portion of small bowel resected. On November 24. New J-tube was placed.- drainage to gravity:-Now discontinued December 19: J-tube blocked. J-tube replaced on December 20 over wire December 21: Leaking around the J-tube site. Feeding held December 23: J feeding was started yesterday evening but again started leaking increasingly around the J-tube site-feeding held again December 24: J-tube feeding has been held. -Midline abdominal incision wound dehiscence midline wound Vac in place. -Acute recurrent atrial fibrillation-converted to sinus rhythm -Hypertension, currently hypotensive. Currently off pressor support. -Normocytic anemia likely to secondary underlying lymphoma. Also anemia of blood draw. Underlying iron deficiency; received PRBC x 6 units and IV iron. -Severe thrombocytopenia. Would consider coagulation disorder secondary to infection., In the setting of underlying lymphoma.: Fluctuating with infection. Currently resolved. -Acute blood loss anemia -Sacral stage II decub ulcer -GERD -Acute diarrhea secondary to tube feeding. C. difficile ruled out. Resolved. Tube feedings on hold. GI prophylaxis Full Code Patient is now post bronchoscopy and tracheostomy tube replacement he continues today on the mechanical ventilator and under IV sedation. Cell count today is 15. His repeat sputum comes back again showing Pseudomonas. He continues on vancomycin and meropenem with infectious disease following closely. Chest tube remains in place, noted airleak and this has been placed to suction. RAYA drain was removed. Wound vac to the midline abdomen remains in place. Continue pressure offloading and barrier cream to the sacral decub. Patient was denied going to [facility] special[facility] and per nursing staff and case management/social work, no safe management planner excepting ECF or facility at this time. Overall prognosis is extremely poor and guarded at this time. The impression and plan of care has been dictated by Carol Ulrich Nurse Practitioner as directed. Dr. Jozef MD I have performed a history and physical examination and medical decision making of this patient, discussed the same with the dictator, and agree with the dictators assessment and plan as written, documented as a scribe. Based on total visit time, I have performed more than 50% of this visit. Objective - Vital Signs Vital signs: Vital Signs Temp 99.3 F 02/01/24 08:00 Pulse 86 02/01/24 12:10 Resp 26 H 02/01/24 12:10 BP 104/62 02/01/24 11:00 Pulse Ox 100 02/01/24 11:00 FiO2 50 02/01/24 11:59 Intake & Output 01/31/24 02/01/24 02/01/24 18:59 06:59 18:59 Intake Total 2680.368 3126.581 1046.747 Output Total 1505 9615 970 Balance -1706.707 -593.419 76.747 Weight 101.3 kg Intake: IV 1557 1800 600 0.9 Normal Saline @ KVO 110 120 60 Meropenem 1 gm In Sodium 200 100 Chloride 0.9% 100 ml @ 33 .3 mls/hr IVPB Q8HR [facility] Rx#:[id number] TPN 1080 1080 540 Vancomycin 1,500 mg In 167 500 Sodium Chloride 0.9% 500 ml 500 ml @ 167 mls/hr IVPB Q16H [facility] Rx#: [id number] Intake, IV Titration 401.293 181.581 446.747 Amount Cisatracurium 200 mg In 160.786 Sodium Chloride 0.9% 180 ml @ 1 MCG/KG/MIN 6.192 mls/hr IV .Q24H [facility] Rx#: [id number] Dexmedetomidine/0.9% NaCl 10.679 (Pmx) 400 mcg In Empty Bag 1 bag @ 0.2 MCG/KG/HR 5.065 mls/hr IV .[id number] [facility] Rx#:[id number] Fat Emulsion 20% 250 ml 250 In Empty Bag 1 bag @ 21 mls/hr IV TuThSa@0900 [facility] Rx#:[id number] Meropenem 1 gm In Sodium 100 Chloride 0.9% 100 ml @ 33 .3 mls/hr IVPB Q8HR [facility] Rx#:[id number] propofoL 1,000 mg In 240.507 181.581 86.068 Empty Bag 1 bag @ 15 MCG/ KG/MIN 9.288 mls/hr IV . [id number] [facility] Rx#:[id number] Output: Chest Tube Drainage 0 0 0 Chest Tube Right 0 0 0 Urine 3665 0835 970 Other: Voiding Method Indwelling Catheter Indwelling Catheter Indwelling Catheter # Bowel Movements 1 ABP, PAP, CO, CI - Last Documented Arterial Blood Pressure 173/76 - Labs CBC & Chem 7: 02/01/24 07:02 02/01/24 07:02 Labs: Abnormal Lab Results - Last 24 Hours (Table) 01/31/24 01/31/24 02/01/24 Range/Units 17:24 23:37 05:59 WBC (3.8-10.6) k/uL RBC (4.30-5.90) m/uL Hgb (13.0-17.5) gm/dL Hct (39.0-53.0) % RDW (11.5-15.5) % ABG pCO2 53 H (35-45) mmHg ABG pO2 115 H (83-108) mmHg ABG HCO3 36 H (21-25) mmol/L ABG Total CO2 38 H (19-24) mmol/L ABG O2 Saturation 99.6 H (94-97) % Hemoglobin 6.8 L* (13.0-17.5) gm/dL Carbon Dioxide (22-30) mmol/L BUN (9-20) mg/dL Creatinine (0.66-1.25) mg/dL Glucose (74-99) mg/dL POC Glucose (mg/dL) 143 H 142 H (70-110) mg/dL Calcium (8.4-10.2) mg/dL 02/01/24 02/01/24 02/01/24 Range/Units 05:59 07:02 07:02 WBC 15.3 H (3.8-10.6) k/uL RBC 2.40 L (4.30-5.90) m/uL Hgb 7.2 L (13.0-17.5) gm/dL Hct 22.4 L (39.0-53.0) % RDW 16.0 H (11.5-15.5) % ABG pCO2 (35-45) mmHg ABG pO2 (83-108) mmHg ABG HCO3 (21-25) mmol/L ABG Total CO2 (19-24) mmol/L ABG O2 Saturation (94-97) % Hemoglobin (13.0-17.5) gm/dL Carbon Dioxide 34 H (22-30) mmol/L BUN 33 H (9-20) mg/dL Creatinine 0.59 L (0.66-1.25) mg/dL Glucose 150 H (74-99) mg/dL POC Glucose (mg/dL) 152 H (70-110) mg/dL Calcium 7.6 L (8.4-10.2) mg/dL 02/01/24 Range/Units 11:56 WBC (3.8-10.6) k/uL RBC (4.30-5.90) m/uL Hgb (13.0-17.5) gm/dL Hct (39.0-53.0) % RDW (11.5-15.5) % ABG pCO2 (35-45) mmHg ABG pO2 (83-108) mmHg ABG HCO3 (21-25) mmol/L ABG Total CO2 (19-24) mmol/L ABG O2 Saturation (94-97) % Hemoglobin (13.0-17.5) gm/dL Carbon Dioxide (22-30) mmol/L BUN (9-20) mg/dL Creatinine (0.66-1.25) mg/dL Glucose (74-99) mg/dL POC Glucose (mg/dL) 168 H (70-110) mg/dL Calcium (8.4-10.2) mg/dL Microbiology - Last 24 Hours (Table) 01/29/24 13:40 Gram Stain - Final Sputum Sputum Culture - Final Pseudomonas aeruginosa 01/28/24 15:40 Blood Culture - Preliminary Blood 01/30/24 04:06 Gram Stain - Preliminary Sputum Sputum Culture - Preliminary Pseudomonas aeruginosa Assessment and Plan Time with Patient: Less than 30
--- NOTE | 2024-02-01 13:40 | P.PN ---
Subjective Progress Note Date: 02/01/24 On today's evaluation of 01/27/2024, the patient remains on a trach collar airfit 40% with a flow of 10 L. No significant respiratory distress. Awake and alert and communicating. Profound weakness although is able to move all 4 extremities with essentially profound weakness in the motor function is 2 out of 5 in all 4 extremities. The patient has a right-sided pigtail catheter. There is ongoing episodic air leak and the output from the right sided chest has been only 10 cc over the past 24 hours. The follow-up chest x-ray showed interval improvement in the right-sided pleural effusion and there is residual consolidation bilaterally as the patient is being treated for pseudomonal pneumonia. Sputum samples from 01/07/2024 was again positive for Pseudomonas aeruginosa and the patient remains on IV ciprofloxacin. The patient remains NPO. The patient remains on TPN for nutritional support and TPN is running at a rate of 90 cc an hour. He has an adequate urine output. The most recent CAT scan of the abdomen and pelvis from 01/25/2024 showed interval development of a dilated small bowel loop in the mid abdomen consistent with either focal ileus versus a partial obstruction. There is also findings suggestive of acute diverticulitis of the sigmoid colon with small pericolic phlegmon/abscess and this has been decreasing in size measuring previously 3.4 cm in size and currently measuring 3 cm in size. Continues to have moderate anasarca. The patient also has decreased right-sided hydropneumothorax on the right side and persistent bilateral pulmonary consolidation. Overall CAT scan findings of the chest have improved. Her white cell count is 14.7. Hemoglobin 7.8. Platelet count of 376. BUN is 19 with a creatinine of 0.5. Sodium is at 132 and a potassium level is at 3.9. The magnesium is at 1.9. Phosphorus is 3.3. Calcium is at 7.2. The patient is having some ongoing leaks around the J-tube. He is on TPN for nutritional support and remains NPO. He is on IV Flagyl in addition. Insulin is in the form of sliding scale coverage. On 01/28/2024, clinically stable and unchanged. Remains on 40% trach collar,, comfortable, communicating, motor function is still weak in all 4 extremities and unchanged compared to yesterday. No significant leaks around the J-tube. RAYA drain is still in place in the right lower quadrant and the output is minimal at this point in time. Wound VAC is also in place. There is still ongoing air leak for the pigtail catheter in his right lung and output has been minimal in the order of 10 cc over the past 12 hours. Remains on IV Cipro. Remains on IV Flagyl. Remains on TPN for nutritional support. Blood work is showing a sodium level of 133, potassium of 4.3, BUN is 20 with a creatinine of 0.6. CBC is still pending and the most recent hemoglobin is at 7.8. On 01/29/2024, the patient's condition is decompensated. Earlier this morning, the patient was found to be in more respiratory distress. Overnight, he was bender ving episodes of hypoglycemia and the patient was placed on 80% trach collar. Later on during the morning, the patient decompensated further. A repeat chest x-ray was done and the patient was found to have patchy confluent bilateral airspace disease with worsening especially on the left. The patient has a right-sided pigtail catheter in place. No evidence of any air leak. Output remains minimal from the pigtail catheter. Noted with those changes, the patient was resedated. Initially was started on Precedex and later on to propofol as the patient was quite tachypneic and is synchronous with the mechanical ventilator. He was placed on a control mode with rate of 16, TV 500, PEEP of 10 with an FiO2 of 100%. Subsequently, he started having significant amount of leak around the tracheostomy tube and he was not returning volumes back. I did a bedside tracheostomy tube exchange and inserted another Shiley #8 tracheostomy tube catheter. Following that, I performed a bronchoscopy and obtain a bronchial lavage of the lingula as the patient had worsening in airspace disease specially on the left. Meanwhile, the patient remains on IV cefepime. The patient remains on Flagyl. Remains hemodynamically stable. Cardiac rhythm is sinus tachycardia. Remains on TPN for nutritional shipley pport at a rate of 90. The RAYA drain was removed yesterday by the surgical team. There is no interval increase in the leaks around the J-tube. He is not receiving enteral feeding for now. His white cell count currently is up to 20 with a hemoglobin 7.6 and a platelet count of 387. Electrolytes from today shows a BUN of 21 with a creatinine of 0.6. Sodium levels at 134 with a potassium level of 4.2, bicarb of 25. 01/30/2024, the patient is on the mechanical ventilator, tracheostomy tube has been exchanged yesterday and there is no significant leaks around the tracheostomy tube. The patient is sedated with propofol running at 30 mcg/kg/min and the patient is also on Nimbex at 2 mcg. He is on assist-control mode with rate of 28, tidal volume of 500, FiO2 of 75% with a PEEP of 10. Blood gas showed a pH of 7.33 with a pCO2 of 59 and pO2 of 152. Chest x-ray shows worsening in consolidations bilaterally. Bronchoscopy endobronchial lavage of the left upper lobe/lingula was done. Results are still pending. Currently on broad-spectrum antibiotic coverage with a combination of meropenem, vancomycin and Flagyl. Remains on TPN for nutritional support at a rate of 90 cc an hour. Fluid balance is +3.2 L over the past 24 hours. His procalcitonin level is at 0.4. Rest of the labs was reviewed and the white cell count remains elevated at 19.3, hemoglobin 7.3, sodium is at 135, BUN 25 with a creatinine of 0.6. Potassium is at 3.4. Pigtail catheter still present in his right lung. Output is minimal and there is no air leak. Chest x-ray shows mixed infiltrates bilaterally and there is considerable amount of consolidation involving the left lung. No significant drainage around the J she open the patient has a wound VAC. RAYA drain has been removed. 01/31/2024, the patient remains sedated and paralyzed. This morning, the patient is on propofol at 40 mcg/kg/min and the patient is also on Nimbex. Remains on assist-control mode of mechanical ventilation with a rate of 28, tidal volume of 500, FiO2 50% with a PEEP of 8. Blood gas showed a pH of 7.36 with a pCO2 of 59 and pO2 of 85. Pigtail catheter is present in the right chest. There is intermittent airleak. Output is minimal. Chest x-ray shows ongoing patchy opacities bilaterally along with airspace disease. A small right-sided pleural effusion is also present. The bronchial lavage that was obtained on 01/30/2024 is still showing persistent Pseudomonas aeruginosa. The patient is currently on IV meropenem, vancomycin and Flagyl. The white cell count is 15.4, the hemoglobin is at 7 with a platelet count of 169. Potassium level is at 5.4 and the TPN will be adjusted in the potassium supplements will be admitted from TPN. TPN is running at a rate of 90 cc an hour. Sodium is at 136, BUN is 29 with a creatinine of 0.6. Abdominal findings are essentially stable. Abdominal distention. No significant drainage around the J-tube. No pressors for now. Fluid balance is +4.2 L over the past 24 hours. On 02/01/2024, the patient is still on propofol and currently is off Nimbex. Propofol is running at 30 mcg/kg/min. He remains on assist-control mode of mechanical ventilation at rate of 28, tidal volume of 500, FiO2 50% with a PEEP of 6. Blood gases showed a pH of 7.44 with a pCO2 of 53 and pO2 of 115. Chest x-ray shows bilateral consolidation. No significant cavitation. No pneumotho rax. There is a right-sided pigtail catheter in place. No significant change in the patient has diffuse bilateral pneumonia. Bronchoscopy was done on 01/30/2024 was consistent with Pseudomonas aeruginosa. The patient remains on a combination of meropenem, vancomycin and Flagyl. He is afebrile. Hemodynamically stable. Cardiac rhythm is sinus. Continues to have leaks around his tracheostomy tube and I decided to exchange tracheostomy tube to XLT longer tracheostomy tube to prevent post leaks. The patient remains on TPN for nutritional support. Fluid balance is -2.3 L as the patient received diuretics yesterday. Continues to have edema in all 4 extremities. The white cell count is lower at 15.3 with a hemoglobin of 7.2 and a platelet count of 408. Sodium is at 140, bicarb is at 34, BUN 33 with a creatinine of 0.5. No other significant events overnight. He seems to be more arousable compared to yesterday. Objective - Vital Signs Vital signs: Vital Signs Temp 99.3 F 02/01/24 08:00 Pulse 100 02/01/24 08:20 Resp 33 H 02/01/24 08:20 BP 138/88 02/01/24 08:00 Pulse Ox 100 02/01/24 08:00 FiO2 50 02/01/24 08:00 Intake & Output 01/31/24 02/01/24 02/01/24 18:59 06:59 18:59 Intake Total 6197.098 5338.581 728.638 Output Total 3669 1778 135 Balance -1706.707 -593.419 268.638 Weight 101.3 kg Intake: IV 1557 1800 300 0.9 Normal Saline @ KVO 110 120 30 Meropenem 1 gm In Sodium 200 100 Chloride 0.9% 100 ml @ 33 .3 mls/hr IVPB Q8HR [facility] Rx#:[id number] TPN 1080 1080 270 Vancomycin 1,500 mg In 167 500 Sodium Chloride 0.9% 500 ml 500 ml @ 167 mls/hr IVPB Q16H [facility] Rx#: [id number] Intake, IV Titration 401.293 181.581 428.638 Amount Cisatracurium 200 mg In 160.786 Sodium Chloride 0.9% 180 ml @ 1 MCG/KG/MIN 6.192 mls/hr IV .Q24H [facility] Rx#: [id number] Fat Emulsion 20% 250 ml 250 In Empty Bag 1 bag @ 21 mls/hr IV TuThSa@[id number] [facility] Rx#:[id number] Meropenem 1 gm In Sodium 100 Chloride 0.9% 100 ml @ 33 .3 mls/hr IVPB Q8HR [facility] Rx#:[id number] propofoL 1,000 mg In 240.507 181.581 78.638 Empty Bag 1 bag @ 15 MCG/ KG/MIN 9.288 mls/hr IV . [id number] [facility] Rx#:[id number] Output: Chest Tube Drainage 0 0 Chest Tube Right 0 0 Urine 0327 5357 864 Other: Voiding Method Indwelling Catheter Indwelling Catheter # Bowel Movements 1 ABP, PAP, CO, CI - Last Documented Arterial Blood Pressure 173/76 - Exam The patient was sedated and he was synchronous on mechanical ventilator. He is currently on a combination of propofol and the patient is currently off Nimbex HEENT examination is grossly unremarkable. Mucous membranes are moist. No oral lesions.. The patient also has a tracheostomy tube in place and the patient has a #8 Shiley tracheostomy tube. Cardiac exam revealed the PMI to be normally situated and sized. The rhythm was regular and no extrasystoles were noted during several minutes of auscultation. The first and second heart sounds were normal and physiologic splitting of the second heart sound was noted. There were no murmurs, rubs, clicks, or gallops. The patient is in sinus tachycardia. Lungs reveal mild scattered rhonchi. No wheezes or crackles. Breath sounds equal. Diminished breath sound lung base bilaterally. Pigtail catheter in the right chest posteriorly located with positive output and positive airleak on the Pleur-evac. Abdomen distended without bowel sounds. J-tube is noted. Mid abdominal wound is covered with a wound VAC. Output from the wound VAC is minimal at this point in time. And underlying wound is rather clean. J tube remains in place. Some leaks around the tube noted. The RAYA drain has been removed. Extremities are intact. No cyanosis clubbing trace edema lower extremities bilaterally Skin is without rash or lesion. The wound at the Mediport site is dry and the area has been sutured and the site is clean for now. Neurologic profound weakness in all 4 extremities and the patient is currently on sedation. - Labs CBC & Chem 7: 02/01/24 07:02 02/01/24 07:02 Labs: Abnormal Lab Results - Last 24 Hours (Table) 01/31/24 01/31/24 01/31/24 Range/Units 09:09 11:17 17:24 WBC (3.8-10.6) k/uL RBC (4.30-5.90) m/uL Hgb (13.0-17.5) gm/dL Hct (39.0-53.0) % RDW (11.5-15.5) % ABG pCO2 (35-45) mmHg ABG pO2 (83-108) mmHg ABG HCO3 (21-25) mmol/L ABG Total CO2 (19-24) mmol/L ABG O2 Saturation (94-97) % Hemoglobin (13.0-17.5) gm/dL Potassium 5.4 H (3.5-5.1) mmol/L Carbon Dioxide (22-30) mmol/L BUN (9-20) mg/dL Creatinine (0.66-1.25) mg/dL Glucose (74-99) mg/dL POC Glucose (mg/dL) 157 H 143 H (70-110) mg/dL Calcium (8.4-10.2) mg/dL 11/02/01/24 02/01/24 Range/Units 23:37 05:59 05:59 WBC (3.8-10.6) k/uL RBC (4.30-5.90) m/uL Hgb (13.0-17.5) gm/dL Hct (39.0-53.0) % RDW (11.5-15.5) % ABG pCO2 53 H (35-45) mmHg ABG pO2 115 H (83-108) mmHg ABG HCO3 36 H (21-25) mmol/L ABG Total CO2 38 H (19-24) mmol/L ABG O2 Saturation 99.6 H (94-97) % Hemoglobin 6.8 L* (13.0-17.5) gm/dL Potassium (3.5-5.1) mmol/L Carbon Dioxide (22-30) mmol/L BUN (9-20) mg/dL Creatinine (0.66-1.25) mg/dL Glucose (74-99) mg/dL POC Glucose (mg/dL) 142 H 152 H (70-110) mg/dL Calcium (8.4-10.2) mg/dL 02/01/24 02/01/24 Range/Units 07:02 07:02 WBC 15.3 H (3.8-10.6) k/uL RBC 2.40 L (4.30-5.90) m/uL Hgb 7.2 L (13.0-17.5) gm/dL Hct 22.4 L (39.0-53.0) % RDW 16.0 H (11.5-15.5) % ABG pCO2 (35-45) mmHg ABG pO2 (83-108) mmHg ABG HCO3 (21-25) mmol/L ABG Total CO2 (19-24) mmol/L ABG O2 Saturation (94-97) % Hemoglobin (13.0-17.5) gm/dL Potassium (3.5-5.1) mmol/L Carbon Dioxide 34 H (22-30) mmol/L BUN 33 H (9-20) mg/dL Creatinine 0.59 L (0.66-1.25) mg/dL Glucose 150 H (74-99) mg/dL POC Glucose (mg/dL) (70-110) mg/dL Calcium 7.6 L (8.4-10.2) mg/dL Microbiology - Last 24 Hours (Table) 01/28/24 15:40 Blood Culture - Preliminary Blood 01/30/24 04:06 Gram Stain - Preliminary Sputum Sputum Culture - Preliminary Pseudomonas aeruginosa 01/29/24 13:40 Gram Stain - Preliminary Sputum Sputum Culture - Preliminary Pseudomonas aeruginosa Assessment and Plan Plan: Acute hypoxemic respiratory failure with failure to wean from mechanical ventilation, S/P tracheostomy on December 10, 2023. The patient has bilateral pneumonia with a cavitary infiltrate in the right upper lobe, secondary to Pseudomonas aeruginosa and Citrobacter. The patient had a pigtail catheter inserted with drainage of the right lung abscess. The bronchial washing is positive for Pseudomonas aeruginosa, quinolone sensitive and the cultures from the pigtail catheter/lung abscess was also positive for Pseudomonas aeruginosa and follow-up CAT scan of the chest was done on 01/25/2024 showed improvement the right-sided hydropneumothorax and the patient does have residual infiltrates and patchy consolidations bilaterally. On 01/29/2024, the patient became progressively more hypoxic. Went into significant respiratory distress and the patient was sedated and the patient is currently on propofol and paralytics have been discontinued.. He is on volume-cycled mode of mechanical ventilation. Blood gases are to follow. Chest x-ray shows interval worsening of the infiltrates with extensive consolidation in the left. Tracheostomy tube was exchanged due to massive air leaks and the leaks were eliminated. Bronchoscopy also done with a bronchial lavage of the left upper lobe. The patient is currently covered with a combination of meropenem and vancomycin. He is also on Flagyl. Pigtail catheter remains in place. Chest x-ray remains unchanged. Awaiting the results of the bronchoalveolar lavage was consistent with Pseudo monas aeruginosa, persistent bacterial growth/infection with Pseudomonas is confirmed. The patient continues to have air leaks around the tracheostomy tube and based on that, I decided to switch this patient to a Shiley XLT. Right apical pneumothorax with ongoing airleak through the pigtail catheter, suspect a bronchopleural fistula in addition. There is intermittent airleak and the chest CAT scan from 01/25/2024 shows improvement in the right-sided hydropneumothorax. Output from the pigtail catheter is minimal at this point in time. Nevertheless, the follow-up chest x-ray shows persistent airspace disease and consolidations in the repeat bronchoscopy and bronchial lavage showed persistent growth with Pseudomonas aeruginosa. Hospital-acquired right lung pseudomonalpneumonia. The patient had a cavitating gram-negative pneumonia that was further complicated by development of a lung abscess. Patient is status post the pigtail catheter insertion. Output from the pigtail is minimal at this point in time.. There is evidence of intermittent air leak. Cough, subsided, continues to have respiratory secretions. Rule out underlying bronchopleural fistula. Bronchoscopy was completed. 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 The patient remains n.p.o. Small bowel perforation with abdominal contamination. The patient is status post expiratory laparotomy and small bowel resection and insertion of another jejunostomy tube. The patient jejunostomy is not functional, awaiting further recommendations from general surgery regarding the functionality of this tube and our ability to restart enteral feeding for nutritional support. The RAYA drain has been removed on 01/28/2024. Peritonitis secondary to above, recovered. Questionable diverticulitis of the sigmoid level with a phlegmon/abscess formation. This is also improving based on the most recent CAT scan of the abdomen and pelvis done on 01/25/2024. Septic shock secondary to above, the patient is currently off pressors Atrial fibrillation with rapid medical response, currently back into normal sinus rhythm . 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 Malfunctioning of the J-tube, currently on TPN for nutritional support Hypertension Leukocytosis Hyperkalemia Plan Keep the patient on propofol and weaning down and switch to Precedex if needed Dropped the respiratory rate down to 20 Wean FiO2 slowly to maintain saturation above 90% Bronchoscopy and bronchial lavage of the left upper lobe/lingula was done, the bronchioloalveolar lavage was positive for Pseudomonas aeruginosa, and the patient will be kept on IV meropenem and vancomycin will be discontinued Give the patient Lasix 40 mg IV push Keep the pigtail catheter in place and the patient has intermittent air leak without any significant output The J-tube is nonfunctional and the patient is on TPN for nutritional support, general surgery is on the case, Eliminate the potassium supplements from the TPN IV fluids to KVO Monitor fever pattern General Surgery is on the case regarding abdominal wound Hemoglobin is stable Condition remains extremely critical with poor prognosis based on the above Will continue to follow this patient along with the rest of the consultants. Evaluation was done more than 30 minutes.
--- NOTE | 2024-02-01 13:43 | P.PCN ---
Date of Procedure: 02/01/24 Operative Findings: Preoperative Diagnosis: Air leak around the tracheostomy tube, respiratory failure Postoperative Diagnosis: Same Procedure(s) Performed: Tracheostomy tube exchange Bronchoscopy Anesthesia: OZZYA Surgeon: Oswald Love Estimated Blood Loss (ml): 0 Pathology: other Condition: critical Disposition: ICU Operative Findings: Tracheostomy tube exchange The patient was having significant amount of leaks through his mouth and around the tracheostomy tube and he was not returning his volumes. Based on that, bedside tracheostomy tube exchange was done. The previously inserted tracheostomy tube was easily removed. I was able to easily insert a #8 Shiley XLT tracheostomy tube and the cuff was inflated and the air leak resolved. The blistering of the tracheostomy tube was confirmed by direct bronchoscopy. Bronchoscopy The portable flexor bronchoscope was inserted through the tracheostomy tube and the position of the tube was confirmed. Following that, a bronchoscopy was completed while the patient being on the mechanical ventilator and the patient was also sedated with propofol. The distal trachea was patent and within normal limits. No suspicious secretions were encountered bilaterally more so on the left. Examination included the bilateral mainstem bronchi, right upper lobe bronchus, right middle lobe bronchus and the right lower lobe bronchus and the bronchus intermedius. Examination of the left included the left upper lobe bronchus and the left lower lobe bronchus. The various segments on the right and 8 segments on the left were also inspected. Scant respiratory secretions were identified mainly in the right lung and therapeutic airway suctioning was done and all of the respiratory secretions were suctioned out easily without any complications. The flexible bronchoscope was subsequently removed and the patient was kept on the mechanical ventilator.
[2024-02-01] MEDS: VANCOMYCIN TROUGH DUE 1 EACH MISC MISCELLANE ONE (14:01)
--- NOTE | 2024-02-01 15:05 | P.PN ---
Subjective Progress Note Date: 02/01/24 Principal diagnosis: Reason for follow-up is pneumonia and diverticulitis Patient is 73-year-old with male initial presentation to the hospital on 11/12/2023 after the patient did have aspiration while undergoing elective endoscopy, diagnosed with a non-Hodgkin lymphoma subsequently did have exploratory laparotomy for perforated small bowel, abdominal washout and feeding jejunostomy tube patient did require dialysis catheter placement for dialysis during this hospital stay which was subsequently discontinued, and tracheostomy for respiratory failure. On today's evaluation that is 02/01/2024, the patient continues to be afebrile, the patient is on ventilator FiO2 is currently stable at 50% no significant purulent secretion through the ET or any other changes reported by nursing staff. Sputum is growing a drug-resistant Pseudomonas sensitive only to amikacin and tobramycin with intermediate sensitivity to Zosyn, white count is down to 15.3 creatinine 0.59 Objective - Vital Signs Vital signs: Vital Signs Temp 98.4 F 02/01/24 12:00 Pulse 86 02/01/24 14:00 Resp 29 H 02/01/24 14:00 BP 104/65 02/01/24 14:00 Pulse Ox 100 02/01/24 14:00 FiO2 50 02/01/24 12:00 Intake & Output 01/31/24 02/01/24 02/01/24 18:59 06:59 18:59 Intake Total 2464.958 8277.581 1326.996 Output Total 3665 2575 1320 Balance -1706.707 -593.419 6.996 Weight 101.3 kg Intake: IV 1557 1800 800 0.9 Normal Saline @ KVO 110 120 80 Meropenem 1 gm In Sodium 200 100 Chloride 0.9% 100 ml @ 33 .3 mls/hr IVPB Q8HR [facility] Rx#:[id number] TPN 1080 1080 720 Vancomycin 1,500 mg In 167 500 Sodium Chloride 0.9% 500 ml 500 ml @ 167 mls/hr IVPB Q16H [facility] Rx#: [id number] Intake, IV Titration 401.293 181.581 526.996 Amount Cisatracurium 200 mg In 160.786 Sodium Chloride 0.9% 180 ml @ 1 MCG/KG/MIN 6.192 mls/hr IV .Q24H [facility] Rx#: [id number] Dexmedetomidine/0.9% NaCl 67.450 (Pmx) 400 mcg In Empty Bag 1 bag @ 0.2 MCG/KG/HR 5.065 mls/hr IV .[id number] [facility] Rx#:[id number] Fat Emulsion 20% 250 ml 250 In Empty Bag 1 bag @ 21 mls/hr IV TuThSa@0900 [facility] Rx#:[id number] Meropenem 1 gm In Sodium 100 Chloride 0.9% 100 ml @ 33 .3 mls/hr IVPB Q8HR [facility] Rx#:[id number] propofoL 1,000 mg In 240.507 181.581 109.546 Empty Bag 1 bag @ 15 MCG/ KG/MIN 9.288 mls/hr IV . [id number] [facility] Rx#:[id number] Output: Chest Tube Drainage 0 0 0 Chest Tube Right 0 0 0 Urine 3665 8685 1320 Other: Voiding Method Indwelling Catheter Indwelling Catheter Indwelling Catheter # Bowel Movements 1 1 ABP, PAP, CO, CI - Last Documented Arterial Blood Pressure 173/76 - Exam GENERAL DESCRIPTION: An elderly male intubated with trach RESPIRATORY SYSTEM: Unlabored breathing , coarse breath sounds anteriorly HEART: S1 S2 regular rate and rhythm , ABDOMEN: Soft , no tenderness EXTREMITIES: No edema feet - Labs CBC & Chem 7: 02/01/24 07:02 02/01/24 07:02 Labs: Abnormal Lab Results - Last 24 Hours (Table) 01/31/24 01/31/24 02/01/24 Range/Units 17:24 23:37 05:59 WBC (3.8-10.6) k/uL RBC (4.30-5.90) m/uL Hgb (13.0-17.5) gm/dL Hct (39.0-53.0) % RDW (11.5-15.5) % ABG pCO2 53 H (35-45) mmHg ABG pO2 115 H (83-108) mmHg ABG HCO3 36 H (21-25) mmol/L ABG Total CO2 38 H (19-24) mmol/L ABG O2 Saturation 99.6 H (94-97) % Hemoglobin 6.8 L* (13.0-17.5) gm/dL Carbon Dioxide (22-30) mmol/L BUN (9-20) mg/dL Creatinine (0.66-1.25) mg/dL Glucose (74-99) mg/dL POC Glucose (mg/dL) 143 H 142 H (70-110) mg/dL Calcium (8.4-10.2) mg/dL 02/01/24 02/01/24 02/01/24 Range/Units 05:59 07:02 07:02 WBC 15.3 H (3.8-10.6) k/uL RBC 2.40 L (4.30-5.90) m/uL Hgb 7.2 L (13.0-17.5) gm/dL Hct 22.4 L (39.0-53.0) % RDW 16.0 H (11.5-15.5) % ABG pCO2 (35-45) mmHg ABG pO2 (83-108) mmHg ABG HCO3 (21-25) mmol/L ABG Total CO2 (19-24) mmol/L ABG O2 Saturation (94-97) % Hemoglobin (13.0-17.5) gm/dL Carbon Dioxide 34 H (22-30) mmol/L BUN 33 H (9-20) mg/dL Creatinine 0.59 L (0.66-1.25) mg/dL Glucose 150 H (74-99) mg/dL POC Glucose (mg/dL) 152 H (70-110) mg/dL Calcium 7.6 L (8.4-10.2) mg/dL 02/01/24 Range/Units 11:56 WBC (3.8-10.6) k/uL RBC (4.30-5.90) m/uL Hgb (13.0-17.5) gm/dL Hct (39.0-53.0) % RDW (11.5-15.5) % ABG pCO2 (35-45) mmHg ABG pO2 (83-108) mmHg ABG HCO3 (21-25) mmol/L ABG Total CO2 (19-24) mmol/L ABG O2 Saturation (94-97) % Hemoglobin (13.0-17.5) gm/dL Carbon Dioxide (22-30) mmol/L BUN (9-20) mg/dL Creatinine (0.66-1.25) mg/dL Glucose (74-99) mg/dL POC Glucose (mg/dL) 168 H (70-110) mg/dL Calcium (8.4-10.2) mg/dL Microbiology - Last 24 Hours (Table) 01/29/24 13:40 Gram Stain - Final Sputum Sputum Culture - Final Pseudomonas aeruginosa 01/28/24 15:40 Blood Culture - Preliminary Blood 01/30/24 04:06 Gram Stain - Preliminary Sputum Sputum Culture - Preliminary Pseudomonas aeruginosa Assessment and Plan (1) Sepsis Current Visit: Yes Status: Acute Code(s): A41.9 - SEPSIS, UNSPECIFIED ORGANISM SNOMED Code(s): 64217668 (2) Pneumonia Current Visit: Yes Status: Acute Code(s): J18.9 - PNEUMONIA, UNSPECIFIED ORGANISM SNOMED Code(s): 344138489 (3) Bacteremia Current Visit: Yes Status: Acute Code(s): R78.81 - BACTEREMIA SNOMED Code(s): 8781215 Plan: 1 the patient did have a new fever also noticed to have worsening of his respiratory status concerning for pneumonia 2repeat blood culture have been negative sputum culture from 7 is growing drug-resistant Pseudomonas aeruginosa sensitive only to tobramycin amikacin intermediate sensitive to Zosyn patient also have a bronchoscopy on 1127 that specimen is growing Pseudomonas with sensitivities pending 3patient did have resolution of his fever, however keeping in mind the sensit ivity with a bacteria resistant to meropenem will be discontinued he did have intermediate sensitivity to Zosyn that will be started as well as tobramycin watching his kidney function closely we will wait for the 01/30/2024 cultures to finalize and also discussed with the pulmonary as he may benefit from a bronchoscopy in the deep lavage and sputum specimen to better define infective pathogen and to make sure the Pseudomonas is not just a colonization of the trach which has also been changed Dictation was produced using [employer] software. please excuse any grammatical, word or spelling errors. Time with Patient: Less than 30
[2024-02-01] MEDS: TOBRAMYCIN SULFATE 160 MG in SODIUM CHLORIDE 0.9% 100 ML IVPB SCH (16:15)
[2024-02-01] MEDS: TOBRAMYCIN PER PHARMACY MISCELLANE SCH (16:19)
[2024-02-01] MEDS: [UNRECOGNIZED DRUG - REMARK] IV SCH (16:39)
[2024-02-01 17:32] LABS: Glucose,Whole Blood 177 mg/dL (70-110)
[2024-02-01] MEDS: PIPERACILLIN-TAZOBACTAM 3.375 GM in SODIUM CHLORIDE 0.9% 100 ML IVPB SCH (17:49)
[2024-02-01] MEDS: ACETAMINOPHEN IV (For NPO) 1,000 MG in EMPTY BAG 1 BAG IVPB PRN (19:04)
[2024-02-01] MEDS: HYDROmorphone 0.5 MG/0.5 ML SYRINGE IVP PRN (20:18)
[2024-02-01 23:23] LABS: Glucose,Whole Blood 211 mg/dL (70-110)
[2024-02-02] MEDS: KETOROLAC 15 MG/ML 1 ML VIAL IVP PRN (01:03)
[2024-02-02 05:34] LABS: Allen Test Performed? Yes
[2024-02-02 05:40] LABS: ABG Base Excess 9.5 mmol/L; ABG HCO3 36 mmol/L (21-25); ABG Oxygen Saturation 99.4 % (94-97); ABG PCO2 61 mmHg (35-45); ABG PH 7.38 (7.35-7.45); ABG PO2 115 mmHg (83-108); ABG TCO2 38 mmol/L (19-24)
[2024-02-02 06:04] LABS: Glucose,Whole Blood 213 mg/dL (70-110)
--- NOTE | 2024-02-02 06:37 | XR ---
EXAMINATION TYPE: XR chest 1V portable DATE OF EXAM: 02/02/2024 COMPARISON: 02/01/2024 CLINICAL INDICATION: Male, 73 years old with history of Intubated; TECHNIQUE: Single frontal view of the chest is obtained. FINDINGS: Tracheostomy tube is 3.7 cm above the josseline. There is no change in the pigtail catheter i n the right pleural space. The right-sided Mediport catheter tip is in the right atrium. Diffuse interstitial and partial air space infiltrates and right effusion is stable. IMPRESSION: No change in the diffuse cardiopulmonary disease as described above. [facility], , 02/02/2024 6:34 AM
[2024-02-02 07:39] LABS: Basophils # (A) 0.1 k/uL (0-0.2); Basophils % (A) 1 %; Eosinophils # (A) 0.3 k/uL (0-0.7); Eosinophils % (A) 3 %; Hypochromasia Marked; Lymphocytes # (A) 2.4 k/uL (1.0-4.8); Lymphocytes % (A) 21 %; MCH 29.7 pg (25.0-35.0); MCHC 30.5 g/dL (31.0-37.0); MCV 97.5 fL (80.0-100.0); Mean Platelet Volume 7.5; Monocytes # (A) 0.6 k/uL (0-1.0); Monocytes % (A) 5 %; Neutrophils # (A) 7.7 k/uL (1.3-7.7); Neutrophils % (A) 69 %; Platelet Count 233 k/uL (150-450); RBC 2.15 m/uL (4.30-5.90); WBC 11.1 k/uL (3.8-10.6)
[2024-02-02 07:55] LABS: African American GFR (CKD) >90 (>60 ml/min/1.73 sqM); Anion Gap 3 mmol/L; Blood Urea Nitrogen 34 mg/dL (9-20); Calcium 7.8 mg/dL (8.4-10.2); Carbon Dioxide 35 mmol/L (22-30); Chloride 103 mmol/L (98-107); Glucose 191 mg/dL (74-99); Magnesium 1.8 mg/dL (1.6-2.3); Non-African American GFR(CKD) >90 (>60 ml/min/1.73 sqM); Phosphorus 4.1 mg/dL (2.5-4.5); Potassium 3.9 mmol/L (3.5-5.1); Sodium 141 mmol/L (137-145)
[2024-02-02 07:56] LABS: HGB 6.4 gm/dL (13.0-17.5)
[2024-02-02] MEDS: POTASSIUM CHLORIDE 10 MEQ in WATER FOR INJECTION 1 100ML.BAG IVPB SCH (09:07)
[2024-02-02] MEDS: MAGNESIUM SULFATE-D5W PMX 1 GM in DEXTROSE/WATER 1 100ML.BAG IVPB ONE (09:07)
--- NOTE | 2024-02-02 09:45 | P.PN ---
Subjective No acute events overnight per nursing Objective - Vital Signs Vital signs: Vital Signs Temp 97.8 F 02/02/24 04:00 Pulse 58 L 02/02/24 09:38 Resp 30 H 02/02/24 07:00 BP 133/85 02/02/24 07:00 Pulse Ox 100 02/02/24 07:00 FiO2 50 02/02/24 09:38 Intake & Output 02/01/24 02/02/24 02/02/24 18:59 06:59 18:59 Intake Total 9706.320 2490.728 197.214 Output Total 1620 870 50 Balance 322.214 810.728 147.214 Weight 108 kg Intake: IV 1200 1400 100 0.9 Normal Saline @ KVO 120 120 10 Piperacillin-Tazobactam 3 100 .375 gm In Sodium Chloride 0.9% 100 ml @ 25 mls/hr IVPB Q8HR [facility] Rx# :[id number] TPN 1080 1080 90 Tobramycin Sulfate 160 mg 100 In Sodium Chloride 0.9% 100 ml @ 104 mls/hr IVPB Q8HR [facility] Rx#:[id number] Intake, IV Titration 742.214 280.728 97.214 Amount Dexmedetomidine/0.9% NaCl 168.581 280.728 97.214 (Pmx) 400 mcg In Empty Bag 1 bag @ 0.2 MCG/KG/HR 5.065 mls/hr IV .[id number] [facility] Rx#:[id number] Fat Emulsion 20% 250 ml 250 In Empty Bag 1 bag @ 21 mls/hr IV TuThSa@0900 [facility] Rx#:[id number] Meropenem 1 gm In Sodium 100 Chloride 0.9% 100 ml @ 33 .3 mls/hr IVPB Q8HR [facility] Rx#:[id number] Piperacillin-Tazobactam 3 100 .375 gm In Sodium Chloride 0.9% 100 ml @ 25 mls/hr IVPB Q8HR [facility] Rx# :[id number] propofoL 1,000 mg In 123.633 Empty Bag 1 bag @ 15 MCG/ KG/MIN 9.288 mls/hr IV . [id number] [facility] Rx#:[id number] Output: Chest Tube Drainage 0 30 Chest Tube Right 0 30 Urine 1620 840 50 Other: Voiding Method Indwelling Catheter Indwelling Catheter # Bowel Movements 1 ABP, PAP, CO, CI - Last Documented Arterial Blood Pressure 173/76 - Exam gen: nad cv: rrr pul: non labored breathing abd: soft, non distended, non tender, no guarding, j tube drainage minimal, woound vac in place - Labs CBC & Chem 7: 02/02/24 06:06 02/02/24 06:06 Labs: Abnormal Lab Results - Last 24 Hours (Table) 02/01/24 02/01/24 02/01/24 Range/Units 07:20 11:56 17:30 WBC (3.8-10.6) k/uL RBC (4.30-5.90) m/uL Hgb (13.0-17.5) gm/dL Hct (39.0-53.0) % MCHC (31.0-37.0) g/dL RDW (11.5-15.5) % ABG pCO2 (35-45) mmHg ABG pO2 (83-108) mmHg ABG HCO3 (21-25) mmol/L ABG Total CO2 (19-24) mmol/L ABG O2 Saturation (94-97) % Hemoglobin (13.0-17.5) gm/dL Carbon Dioxide (22-30) mmol/L BUN (9-20) mg/dL Creatinine (0.66-1.25) mg/dL Glucose (74-99) mg/dL POC Glucose (mg/dL) 168 H 177 H (70-110) mg/dL Calcium (8.4-10.2) mg/dL Crossmatch See Detail 02/01/24 02/02/24 02/02/24 Range/Units 23:22 05:24 06:03 WBC (3.8-10.6) k/uL RBC (4.30-5.90) m/uL Hgb (13.0-17.5) gm/dL Hct (39.0-53.0) % MCHC (31.0-37.0) g/dL RDW (11.5-15.5) % ABG pCO2 61 H (35-45) mmHg ABG pO2 115 H (83-108) mmHg ABG HCO3 36 H (21-25) mmol/L ABG Total CO2 38 H (19-24) mmol/L ABG O2 Saturation 99.4 H (94-97) % Hemoglobin 6.8 L* (13.0-17.5) gm/dL Carbon Dioxide (22-30) mmol/L BUN (9-20) mg/dL Creatinine (0.66-1.25) mg/dL Glucose (74-99) mg/dL POC Glucose (mg/dL) 211 H 213 H (70-110) mg/dL Calcium (8.4-10.2) mg/dL Crossmatch 02/02/24 02/02/24 Range/Units 06:06 06:06 WBC 11.1 H (3.8-10.6) k/uL RBC 2.15 L (4.30-5.90) m/uL Hgb 6.4 L* (13.0-17.5) gm/dL Hct 21.0 L (39.0-53.0) % MCHC 30.5 L (31.0-37.0) g/dL RDW 16.0 H (11.5-15.5) % ABG pCO2 (35-45) mmHg ABG pO2 (83-108) mmHg ABG HCO3 (21-25) mmol/L ABG Total CO2 (19-24) mmol/L ABG O2 Saturation (94-97) % Hemoglobin (13.0-17.5) gm/dL Carbon Dioxide 35 H (22-30) mmol/L BUN 34 H (9-20) mg/dL Creatinine 0.60 L (0.66-1.25) mg/dL Glucose 191 H (74-99) mg/dL POC Glucose (mg/dL) (70-110) mg/dL Calcium 7.8 L (8.4-10.2) mg/dL Crossmatch Microbiology - Last 24 Hours (Table) 01/30/24 04:06 Gram Stain - Final Sputum Sputum Culture - Final Pseudomonas aeruginosa 01/29/24 13:40 Gram Stain - Final Sputum Sputum Culture - Final Pseudomonas aeruginosa Assessment and Plan Assessment: 1. 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 Status post J-tube placement and revision for small bowel obstruction 2. Abdominal wound dehiscence status post wound VAC placement 3. Status post tracheostomy PLAN: -At this time, patients J tube site fistula is mature and it is of no harm to the patient if the J tube has been pulled back as the patient has not been getting any tube feeds. Patients nutritional support will be from TPN. -Wound VAC scheduled changes. -Continue supportive care -Continue TPN for nutrition support Daron Irby DO [facility] [phone] Time with Patient: Less than 30
--- NOTE | 2024-02-02 12:11 | P.PN ---
Subjective Progress Note Date: 02/02/24 On today's evaluation of 01/27/2024, the patient remains on a trach collar airfit 40% with a flow of 10 L. No significant respiratory distress. Awake and alert and communicating. Profound weakness although is able to move all 4 extremities with essentially profound weakness in the motor function is 2 out of 5 in all 4 extremities. The patient has a right-sided pigtail catheter. There is ongoing episodic air leak and the output from the right sided chest has been only 10 cc over the past 24 hours. The follow-up chest x-ray showed interval improvement in the right-sided pleural effusion and there is residual consolidation bilaterally as the patient is being treated for pseudomonal pneumonia. Sputum samples from 01/07/2024 was again positive for Pseudomonas aeruginosa and the patient remains on IV ciprofloxacin. The patient remains NPO. The patient remains on TPN for nutritional support and TPN is running at a rate of 90 cc an hour. He has an adequate urine output. The most recent CAT scan of the abdomen and pelvis from 01/25/2024 showed interval development of a dilated small bowel loop in the mid abdomen consistent with either focal ileus versus a partial obstruction. There is also findings suggestive of acute diverticulitis of the sigmoid colon with small pericolic phlegmon/abscess and this has been decreasing in size measuring previously 3.4 cm in size and currently measuring 3 cm in size. Continues to have moderate anasarca. The patient also has decreased right-sided hydropneumothorax on the right side and persistent bilateral pulmonary consolidation. Overall CAT scan findings of the chest have improved. Her white cell count is 14.7. Hemoglobin 7.8. Platelet count of 376. BUN is 19 with a creatinine of 0.5. Sodium is at 132 and a potassium level is at 3.9. The magnesium is at 1.9. Phosphorus is 3.3. Calcium is at 7.2. The patient is having some ongoing leaks around the J-tube. He is on TPN for nutritional support and remains NPO. He is on IV Flagyl in addition. Insulin is in the form of sliding scale coverage. On 01/28/2024, clinically stable and unchanged. Remains on 40% trach collar,, comfortable, communicating, motor function is still weak in all 4 extremities and unchanged compared to yesterday. No significant leaks around the J-tube. RAYA drain is still in place in the right lower quadrant and the output is minimal at this point in time. Wound VAC is also in place. There is still ongoing air leak for the pigtail catheter in his right lung and output has been minimal in the order of 10 cc over the past 12 hours. Remains on IV Cipro. Remains on IV Flagyl. Remains on TPN for nutritional support. Blood work is showing a sodium level of 133, potassium of 4.3, BUN is 20 with a creatinine of 0.6. CBC is still pending and the most recent hemoglobin is at 7.8. On 01/29/2024, the patient's condition is decompensated. Earlier this morning, the patient was found to be in more respiratory distress. Overnight, he was bender ving episodes of hypoglycemia and the patient was placed on 80% trach collar. Later on during the morning, the patient decompensated further. A repeat chest x-ray was done and the patient was found to have patchy confluent bilateral airspace disease with worsening especially on the left. The patient has a right-sided pigtail catheter in place. No evidence of any air leak. Output remains minimal from the pigtail catheter. Noted with those changes, the patient was resedated. Initially was started on Precedex and later on to propofol as the patient was quite tachypneic and is synchronous with the mechanical ventilator. He was placed on a control mode with rate of 16, TV 500, PEEP of 10 with an FiO2 of 100%. Subsequently, he started having significant amount of leak around the tracheostomy tube and he was not returning volumes back. I did a bedside tracheostomy tube exchange and inserted another Shiley #8 tracheostomy tube catheter. Following that, I performed a bronchoscopy and obtain a bronchial lavage of the lingula as the patient had worsening in airspace disease specially on the left. Meanwhile, the patient remains on IV cefepime. The patient remains on Flagyl. Remains hemodynamically stable. Cardiac rhythm is sinus tachycardia. Remains on TPN for nutritional shipley pport at a rate of 90. The RAYA drain was removed yesterday by the surgical team. There is no interval increase in the leaks around the J-tube. He is not receiving enteral feeding for now. His white cell count currently is up to 20 with a hemoglobin 7.6 and a platelet count of 387. Electrolytes from today shows a BUN of 21 with a creatinine of 0.6. Sodium levels at 134 with a potassium level of 4.2, bicarb of 25. 01/30/2024, the patient is on the mechanical ventilator, tracheostomy tube has been exchanged yesterday and there is no significant leaks around the tracheostomy tube. The patient is sedated with propofol running at 30 mcg/kg/min and the patient is also on Nimbex at 2 mcg. He is on assist-control mode with rate of 28, tidal volume of 500, FiO2 of 75% with a PEEP of 10. Blood gas showed a pH of 7.33 with a pCO2 of 59 and pO2 of 152. Chest x-ray shows worsening in consolidations bilaterally. Bronchoscopy endobronchial lavage of the left upper lobe/lingula was done. Results are still pending. Currently on broad-spectrum antibiotic coverage with a combination of meropenem, vancomycin and Flagyl. Remains on TPN for nutritional support at a rate of 90 cc an hour. Fluid balance is +3.2 L over the past 24 hours. His procalcitonin level is at 0.4. Rest of the labs was reviewed and the white cell count remains elevated at 19.3, hemoglobin 7.3, sodium is at 135, BUN 25 with a creatinine of 0.6. Potassium is at 3.4. Pigtail catheter still present in his right lung. Output is minimal and there is no air leak. Chest x-ray shows mixed infiltrates bilaterally and there is considerable amount of consolidation involving the left lung. No significant drainage around the J she open the patient has a wound VAC. RAYA drain has been removed. 01/31/2024, the patient remains sedated and paralyzed. This morning, the patient is on propofol at 40 mcg/kg/min and the patient is also on Nimbex. Remains on assist-control mode of mechanical ventilation with a rate of 28, tidal volume of 500, FiO2 50% with a PEEP of 8. Blood gas showed a pH of 7.36 with a pCO2 of 59 and pO2 of 85. Pigtail catheter is present in the right chest. There is intermittent airleak. Output is minimal. Chest x-ray shows ongoing patchy opacities bilaterally along with airspace disease. A small right-sided pleural effusion is also present. The bronchial lavage that was obtained on 01/30/2024 is still showing persistent Pseudomonas aeruginosa. The patient is currently on IV meropenem, vancomycin and Flagyl. The white cell count is 15.4, the hemoglobin is at 7 with a platelet count of 169. Potassium level is at 5.4 and the TPN will be adjusted in the potassium supplements will be admitted from TPN. TPN is running at a rate of 90 cc an hour. Sodium is at 136, BUN is 29 with a creatinine of 0.6. Abdominal findings are essentially stable. Abdominal distention. No significant drainage around the J-tube. No pressors for now. Fluid balance is +4.2 L over the past 24 hours. On 02/01/2024, the patient is still on propofol and currently is off Nimbex. Propofol is running at 30 mcg/kg/min. He remains on assist-control mode of mechanical ventilation at rate of 28, tidal volume of 500, FiO2 50% with a PEEP of 6. Blood gases showed a pH of 7.44 with a pCO2 of 53 and pO2 of 115. Chest x-ray shows bilateral consolidation. No significant cavitation. No pneumotho rax. There is a right-sided pigtail catheter in place. No significant change in the patient has diffuse bilateral pneumonia. Bronchoscopy was done on 01/30/2024 was consistent with Pseudomonas aeruginosa. The patient remains on a combination of meropenem, vancomycin and Flagyl. He is afebrile. Hemodynamically stable. Cardiac rhythm is sinus. Continues to have leaks around his tracheostomy tube and I decided to exchange tracheostomy tube to XLT longer tracheostomy tube to prevent post leaks. The patient remains on TPN for nutritional support. Fluid balance is -2.3 L as the patient received diuretics yesterday. Continues to have edema in all 4 extremities. The white cell count is lower at 15.3 with a hemoglobin of 7.2 and a platelet count of 408. Sodium is at 140, bicarb is at 34, BUN 33 with a creatinine of 0.5. No other significant events overnight. He seems to be more arousable compared to yesterday. On 02/02/2024, the patient is on Precedex running at 1.1 mcg/kg/min. He is a bit restless. Awake and tries to talk while even being on the mechanical ventilator. He remains on assist-control mode of mechanical ventilation. He is on volume-cycled rate of 20, tidal volume of 500, FiO2 of 50% with a PEEP of 6. Blood gas showed pH of 7.38 with a pCO2 of 61 and pO2 115. Chest x-ray shows multifocal bilateral pneumonia consolidation. No pneumothorax. Pigtail nikko ter still present in the right hemithorax and there is intermittent air leak. No significant output. Fluid balance is +1.1 L over the past 24 hours. The most recent bronchioloalveolar lavage obtained from this patient showed Pseudomonas aeruginosa. Nevertheless, sensitivities have been changed and is Pseudomonas aeruginosa is multidrug-resistant, there is intermediate sensitivity to Zosyn and tobramycin and based on that the patient was started on a combination of Zosyn and tobramycin. He remains on TPN for nutritional support rate of 90 cc an hour. Blood work shows a white cell count of 11.1, hemoglobin is down to 6.4 and a platelet count is at 233. BUN 34 with a creatinine of 0.6 and a sodium levels at 141 with a potassium level is a 3.9. Vancomycin has been discontinued. Abdominal exam remains unchanged. Objective - Vital Signs Vital signs: Vital Signs Temp 97.8 F 02/02/24 04:00 Pulse 58 L 02/02/24 09:38 Resp 30 H 02/02/24 07:00 BP 133/85 02/02/24 07:00 Pulse Ox 100 02/02/24 07:00 FiO2 50 02/02/24 09:38 Intake & Output 02/01/24 02/02/24 02/02/24 18:59 06:59 18:59 Intake Total 1683.222 7497.728 197.214 Output Total 1620 870 50 Balance 322.214 810.728 147.214 Weight 108 kg Intake: IV 1200 1400 100 0.9 Normal Saline @ KVO 120 120 10 Piperacillin-Tazobactam 3 100 .375 gm In Sodium Chloride 0.9% 100 ml @ 25 mls/hr IVPB Q8HR [facility] Rx# :[id number] TPN 1080 1080 90 Tobramycin Sulfate 160 mg 100 In Sodium Chloride 0.9% 100 ml @ 104 mls/hr IVPB Q8HR [facility] Rx#:[id number] Intake, IV Titration 742.214 280.728 97.214 Amount Dexmedetomidine/0.9% NaCl 168.581 280.728 97.214 (Pmx) 400 mcg In Empty Bag 1 bag @ 0.2 MCG/KG/HR 5.065 mls/hr IV .[id number] [facility] Rx#:[id number] Fat Emulsion 20% 250 ml 250 In Empty Bag 1 bag @ 21 mls/hr IV [id number] [facility] Rx#:[id number] Meropenem 1 gm In Sodium 100 Chloride 0.9% 100 ml @ 33 .3 mls/hr IVPB Q8HR [facility] Rx#:[id number] Piperacillin-Tazobactam 3 100 .375 gm In Sodium Chloride 0.9% 100 ml @ 25 mls/hr IVPB Q8HR [facility] Rx# :[id number] propofoL 1,000 mg In 123.633 Empty Bag 1 bag @ 15 MCG/ KG/MIN 9.288 mls/hr IV . [id number] [facility] Rx#:[id number] Output: Chest Tube Drainage 0 30 Chest Tube Right 0 30 Urine 1620 840 50 Other: Voiding Method Indwelling Catheter Indwelling Catheter # Bowel Movements 1 ABP, PAP, CO, CI - Last Documented Arterial Blood Pressure 173/76 - Exam The patient is a bit restless yet awake and somewhat asynchronous on mechanical ventilator. He is currently on a combination of Precedex HEENT examination is grossly unremarkable. Mucous membranes are moist. No oral lesions.. The patient also has a tracheostomy tube in place and the patient has a #8 Shiley tracheostomy tube, XLT Cardiac exam revealed the PMI to be normally situated and sized. The rhythm was regular and no extrasystoles were noted during several minutes of auscultation. The first and second heart sounds were normal and physiologic splitting of the second heart sound was noted. There were no murmurs, rubs, clicks, or gallops. The patient is in sinus tachycardia. Lungs reveal mild scattered rhonchi. No wheezes or crackles. Breath sounds equal. Diminished breath sound lung base bilaterally. Pigtail catheter in the right chest posteriorly located with positive output and positive airleak on the Pleur-evac. Abdomen distended without bowel sounds. J-tube is noted. Mid abdominal wound is covered with a wound VAC. Output from the wound VAC is minimal at this point in time. And underlying wound is rather clean. J tube remains in place. Some leaks around the tube noted. The RAYA drain has been removed. Extremities are intact. No cyanosis clubbing trace edema lower extremities bilaterally Skin is without rash or lesion. The wound at the Mediport site is dry and the area has been sutured and the site is clean for now. Neurologic profound weakness in all 4 extremities and the patient is currently on sedation. Arousable, follows commands and tries to answer questions. - Labs CBC & Chem 7: 02/02/24 06:06 02/02/24 06:06 Labs: Abnormal Lab Results - Last 24 Hours (Table) 02/01/24 02/01/24 02/01/24 Range/Units 07:20 17:30 23:22 WBC (3.8-10.6) k/uL RBC (4.30-5.90) m/uL Hgb (13.0-17.5) gm/dL Hct (39.0-53.0) % MCHC (31.0-37.0) g/dL RDW (11.5-15.5) % ABG pCO2 (35-45) mmHg ABG pO2 (83-108) mmHg ABG HCO3 (21-25) mmol/L ABG Total CO2 (19-24) mmol/L ABG O2 Saturation (94-97) % Hemoglobin (13.0-17.5) gm/dL Carbon Dioxide (22-30) mmol/L BUN (9-20) mg/dL Creatinine (0.66-1.25) mg/dL Glucose (74-99) mg/dL POC Glucose (mg/dL) 177 H 211 H (70-110) mg/dL Calcium (8.4-10.2) mg/dL Crossmatch See Detail 02/02/24 02/02/24 02/02/24 Range/Units 05:24 06:03 06:06 WBC 11.1 H (3.8-10.6) k/uL RBC 2.15 L (4.30-5.90) m/uL Hgb 6.4 L* (13.0-17.5) gm/dL Hct 21.0 L (39.0-53.0) % MCHC 30.5 L (31.0-37.0) g/dL RDW 16.0 H (11.5-15.5) % ABG pCO2 61 H (35-45) mmHg ABG pO2 115 H (83-108) mmHg ABG HCO3 36 H (21-25) mmol/L ABG Total CO2 38 H (19-24) mmol/L ABG O2 Saturation 99.4 H (94-97) % Hemoglobin 6.8 L* (13.0-17.5) gm/dL Carbon Dioxide (22-30) mmol/L BUN (9-20) mg/dL Creatinine (0.66-1.25) mg/dL Glucose (74-99) mg/dL POC Glucose (mg/dL) 213 H (70-110) mg/dL Calcium (8.4-10.2) mg/dL Crossmatch 02/02/24 Range/Units 06:06 WBC (3.8-10.6) k/uL RBC (4.30-5.90) m/uL Hgb (13.0-17.5) gm/dL Hct (39.0-53.0) % MCHC (31.0-37.0) g/dL RDW (11.5-15.5) % ABG pCO2 (35-45) mmHg ABG pO2 (83-108) mmHg ABG HCO3 (21-25) mmol/L ABG Total CO2 (19-24) mmol/L ABG O2 Saturation (94-97) % Hemoglobin (13.0-17.5) gm/dL Carbon Dioxide 35 H (22-30) mmol/L BUN 34 H (9-20) mg/dL Creatinine 0.60 L (0.66-1.25) mg/dL Glucose 191 H (74-99) mg/dL POC Glucose (mg/dL) (70-110) mg/dL Calcium 7.8 L (8.4-10.2) mg/dL Crossmatch Microbiology - Last 24 Hours (Table) 01/30/24 04:06 Gram Stain - Final Sputum Sputum Culture - Final Pseudomonas aeruginosa 01/29/24 13:40 Gram Stain - Final Sputum Sputum Culture - Final Pseudomonas aeruginosa Assessment and Plan Plan: Acute hypoxemic respiratory failure with failure to wean from mechanical ventilation, S/P tracheostomy on December 10, 2023. The patient has bilateral pneumonia with a cavitary infiltrate in the right upper lobe, secondary to Pseudomonas aeruginosa and Citrobacter. The patient had a pigtail catheter inserted with drainage of the right lung abscess. The bronchial washing is positive for Pseudomonas aeruginosa, quinolone sensitive and the cultures from the pigtail catheter/lung abscess was also positive for Pseudomonas aeruginosa and follow-up CAT scan of the chest was done on 01/25/2024 showed improvement the right-sided hydropneumothorax and the patient does have residual infiltrates and patchy consolidations bilaterally. On 01/29/2024, the patient became progressively more hypoxic. Went into significant respiratory distress and the patient was sedated and the patient is currently on propofol and paralytics have been discontinued.. He is on volume-cycled mode of mechanical ventilation. Blood gases are to follow. Chest x-ray shows interval worsening of the infiltrates with extensive consolidation in the left. Tracheostomy tube was exchanged due to massive air leaks and the leaks were eliminated. Bronchoscopy also done with a bronchial lavage of the left upper lobe. The cultures was positive for multidrug-resistant Pseudomonas aeruginosa and the patient was switched to a combination of Zosyn and tobramycin. Tracheostomy tube was also exchanged the patient was given a #8 Shiley XLT. Intermittent air leaks around the tracheostomy tube is still present although this has not affected the patient's overall ventilation. Chest x-ray findings are essentially unchanged the patient continues to have diffuse bilateral pulmonary filtrates. No pneumothorax. Right apical pneumothorax with ongoing airleak through the pigtail catheter, suspect a bronchopleural fistula in addition. There is intermittent airleak and the chest CAT scan from 01/25/2024 shows improvement in the right-sided hydropneumothorax. Output from the pigtail catheter is minimal at this point in time. Nevertheless, the follow-up chest x-ray shows persistent airspace disease and consolidations in the repeat bronchoscopy and bronchial lavage showed persistent growth with Pseudomonas aeruginosa. Hospital-acquired right lung pseudomonalpneumonia/multidrug-resistant. The patient had a cavitating gram-negative pneumonia that was further complicated by development of a lung abscess. Patient is status post the pigtail catheter insertion. Output from the pigtail is minimal at this point in time.. There is evidence of intermittent air leak. Cough, subsided, continues to have respiratory secretions. Rule out underlying bronchopleural fistula. Bronchoscopy was completed. 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 The patient remains n.p.o. Small bowel perforation with abdominal contamination. The patient is status post expiratory laparotomy and small bowel resection and insertion of another jejunostomy tube. The patient jejunostomy is not functional, awaiting further recommendations from general surgery regarding the functionality of this tube and our ability to restart enteral feeding for nutritional support. The RAYA drain has been removed on 01/28/2024. Peritonitis secondary to above, recovered. Questionable diverticulitis of the sigmoid level with a phlegmon/abscess formation. This is also improving based on the most recent CAT scan of the abdomen and pelvis done on 01/25/2024. Septic shock secondary to above, the patient is currently off pressors Atrial fibrillation with rapid medical response, currently back into normal sin us rhythm . 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 Malfunctioning of the J-tube, currently on TPN for nutritional support Hypertension Leukocytosis Hyperkalemia Plan Keep the patient on Precedex Increase tidal volume to 620 and dropped the PEEP down to 5 Wean FiO2 slowly to maintain saturation above 90% Bronchoscopy and bronchial lavage of the left upper lobe/lingula was done, the bronchioloalveolar lavage was positive for Pseudomonas aeruginosa, and the patient will be kept on Zosyn and tobramycin. Rest of the antibiotics have been discontinued Give the patient Lasix 40 mg IV push Keep the pigtail catheter in place and the patient has intermittent air leak without any significant output The J-tube is nonfunctional and the patient is on TPN for nutritional support, general surgery is on the case, Eliminate the potassium supplements from the TPN Give the patient a unit of packed RBC IV fluids to KVO Monitor fever pattern General Surgery is on the case regarding abdominal wound Hemoglobin is stable Condition remains extremely critical with poor prognosis based on the above Will continue to follow this patient along with the rest of the consultants. Evaluation was done more than 30 minutes. Time with Patient: Greater than 30
[2024-02-02 12:55] LABS: Glucose,Whole Blood 219 mg/dL (70-110)
--- NOTE | 2024-02-02 12:55 | P.PN ---
Subjective Progress Note Date: 02/02/24 Principal diagnosis: Reason for follow-up is pneumonia and diverticulitis Patient is 73-year-old with male initial presentation to the hospital on 11/12/2023 after the patient did have aspiration while undergoing elective endoscopy, diagnosed with a non-Hodgkin lymphoma subsequently did have exploratory laparotomy for perforated small bowel, abdominal washout and feeding jejunostomy tube patient did require dialysis catheter placement for dialysis during this hospital stay which was subsequently discontinued, and tracheostomy for respiratory failure. On today's evaluation that is 02/02/2024, Patient is afebrile patient is currently on ventilator through the trach no significant purulent secretion through the ET patient is hemodynamically stable not requiring any pressor support FiO2 stable at 50% no diarrhea reported. Patient white count is down to 11.1 hemoglobin is 6.4 creatinine 0.60 Objective - Vital Signs Vital signs: Vital Signs Temp 97.8 F 02/02/24 04:00 Pulse 58 L 02/02/24 09:38 Resp 30 H 02/02/24 07:00 BP 133/85 02/02/24 07:00 Pulse Ox 100 02/02/24 07:00 FiO2 50 02/02/24 09:38 Intake & Output 02/01/24 02/02/24 02/02/24 18:59 06:59 18:59 Intake Total 5181.599 1849.728 197.214 Output Total 1620 870 50 Balance 322.214 810.728 147.214 Weight 108 kg Intake: IV 1200 1400 100 0.9 Normal Saline @ KVO 120 120 10 Piperacillin-Tazobactam 3 100 .375 gm In Sodium Chloride 0.9% 100 ml @ 25 mls/hr IVPB Q8HR [facility] Rx# :[id number] TPN 1080 1080 90 Tobramycin Sulfate 160 mg 100 In Sodium Chloride 0.9% 100 ml @ 104 mls/hr IVPB Q8HR [facility] Rx#:[id number] Intake, IV Titration 742.214 280.728 97.214 Amount Dexmedetomidine/0.9% NaCl 168.581 280.728 97.214 (Pmx) 400 mcg In Empty Bag 1 bag @ 0.2 MCG/KG/HR 5.065 mls/hr IV .[id number] [facility] Rx#:[id number] Fat Emulsion 20% 250 ml 250 In Empty Bag 1 bag @ 21 mls/hr IV TuThSa@0900 COUNT INCLUDES THE [facility] Rx#:[id number] Meropenem 1 gm In Sodium 100 Chloride 0.9% 100 ml @ 33 .3 mls/hr IVPB Q8HR COUNT INCLUDES THE [facility] Rx#:[id number] Piperacillin-Tazobactam 3 100 .375 gm In Sodium Chloride 0.9% 100 ml @ 25 mls/hr IVPB Q8HR [facility] Rx# :[id number] propofoL 1,000 mg In 123.633 Empty Bag 1 bag @ 15 MCG/ KG/MIN 9.288 mls/hr IV . [id number] [facility] Rx#:[id number] Output: Chest Tube Drainage 0 30 Chest Tube Right 0 30 Urine 1620 840 50 Other: Voiding Method Indwelling Catheter Indwelling Catheter # Bowel Movements 1 ABP, PAP, CO, CI - Last Documented Arterial Blood Pressure 173/76 - Exam GENERAL DESCRIPTION: An elderly male intubated with trach RESPIRATORY SYSTEM: Unlabored breathing , coarse breath sounds anteriorly HEART: S1 S2 regular rate and rhythm , ABDOMEN: Soft , no tenderness EXTREMITIES: No edema feet - Labs CBC & Chem 7: 02/02/24 06:06 02/02/24 06:06 Labs: Abnormal Lab Results - Last 24 Hours (Table) 02/01/24 02/01/24 02/01/24 Range/Units 07:20 11:56 17:30 WBC (3.8-10.6) k/uL RBC (4.30-5.90) m/uL Hgb (13.0-17.5) gm/dL Hct (39.0-53.0) % MCHC (31.0-37.0) g/dL RDW (11.5-15.5) % ABG pCO2 (35-45) mmHg ABG pO2 (83-108) mmHg ABG HCO3 (21-25) mmol/L ABG Total CO2 (19-24) mmol/L ABG O2 Saturation (94-97) % Hemoglobin (13.0-17.5) gm/dL Carbon Dioxide (22-30) mmol/L BUN (9-20) mg/dL Creatinine (0.66-1.25) mg/dL Glucose (74-99) mg/dL POC Glucose (mg/dL) 168 H 177 H (70-110) mg/dL Calcium (8.4-10.2) mg/dL Crossmatch See Detail 02/01/24 02/02/24 02/02/24 Range/Units 23:22 05:24 06:03 WBC (3.8-10.6) k/uL RBC (4.30-5.90) m/uL Hgb (13.0-17.5) gm/dL Hct (39.0-53.0) % MCHC (31.0-37.0) g/dL RDW (11.5-15.5) % ABG pCO2 61 H (35-45) mmHg ABG pO2 115 H (83-108) mmHg ABG HCO3 36 H (21-25) mmol/L ABG Total CO2 38 H (19-24) mmol/L ABG O2 Saturation 99.4 H (94-97) % Hemoglobin 6.8 L* (13.0-17.5) gm/dL Carbon Dioxide (22-30) mmol/L BUN (9-20) mg/dL Creatinine (0.66-1.25) mg/dL Glucose (74-99) mg/dL POC Glucose (mg/dL) 211 H 213 H (70-110) mg/dL Calcium (8.4-10.2) mg/dL Crossmatch 02/02/24 02/02/24 Range/Units 06:06 06:06 WBC 11.1 H (3.8-10.6) k/uL RBC 2.15 L (4.30-5.90) m/uL Hgb 6.4 L* (13.0-17.5) gm/dL Hct 21.0 L (39.0-53.0) % MCHC 30.5 L (31.0-37.0) g/dL RDW 16.0 H (11.5-15.5) % ABG pCO2 (35-45) mmHg ABG pO2 (83-108) mmHg ABG HCO3 (21-25) mmol/L ABG Total CO2 (19-24) mmol/L ABG O2 Saturation (94-97) % Hemoglobin (13.0-17.5) gm/dL Carbon Dioxide 35 H (22-30) mmol/L BUN 34 H (9-20) mg/dL Creatinine 0.60 L (0.66-1.25) mg/dL Glucose 191 H (74-99) mg/dL POC Glucose (mg/dL) (70-110) mg/dL Calcium 7.8 L (8.4-10.2) mg/dL Crossmatch Microbiology - Last 24 Hours (Table) 01/30/24 04:06 Gram Stain - Final Sputum Sputum Culture - Final Pseudomonas aeruginosa 01/29/24 13:40 Gram Stain - Final Sputum Sputum Culture - Final Pseudomonas aeruginosa Assessment and Plan (1) Sepsis Current Visit: Yes Status: Acute Code(s): A41.9 - SEPSIS, UNSPECIFIED ORGANISM SNOMED Code(s): 51635949 (2) Pneumonia Current Visit: Yes Status: Acute Code(s): J18.9 - PNEUMONIA, UNSPECIFIED ORGANISM SNOMED Code(s): 862975450 (3) Bacteremia Current Visit: Yes Status: Acute Code(s): R78.81 - BACTEREMIA SNOMED Code(s): 3237156 Plan: 1 the patient did have a new fever also noticed to have worsening of his respiratory status concerning for pneumonia 2repeat blood culture have been negative sputum culture from 1127 is growing drug-resistant Pseudomonas aeruginosa sensitive only to tobramycin amikacin intermediate sensitive to Zosyn patient also have a bronchoscopy on 1128 that specimen is growing Pseudomonas with multidrug resistant pattern and intermediate to Zosyn sensitive to amikacin and tobramycin 3patient did have resolution of his fever, and the white count is trending down 4patient was treated with Zosyn and tobramycin and will watch his kidney function closely Family at the bedside question answered Dictation was produced using [employer] dictation software. please excuse any grammatical, word or spelling errors. Time with Patient: Less than 30
[2024-02-02] MEDS: FUROSEMIDE 10 MG/ML 4 ML VIAL IV STA (13:02)
--- NOTE | 2024-02-02 15:49 | P.PN ---
Subjective Progress Note Date: 02/02/24 January 22, 2024: ICU. Patient was on CPAP this morning. Plan was to take him to trach only this afternoon. Getting IV Precedex. Awake. Moves his head to command. Was able to move his right arm. Wound VAC remains in place. Right chest tube/pigtail catheter in place. Some air leak. Minimal output from the right RAYA drain. Secretions persist through the left J-tube site. at the bedside. Spoke to the clinical social work therapist David. Looking into long-term placement. 01/23/24 Patient is evaluated in the ICU at the bedside. Feels anxious today, precedex is being weaned. He is awake alert. He is edematous. Abdominal wound vac in place. Right chest tube/pigtail in place. 55 ML of drainage overnight. Right sided RAYA drain. J tube in place. On TPN. He is pending approval for select specialty vs. [facility]. Blood work today reveals a sodium level of 131. Continues on IV Ciprofloxacin/ IV fluconazole. 01/24/2024 Patient remains in the intensive care unit as remains at the bedside. He was weaned off the Precedex today did receive a dose of Ativan this morning however his mood has much improved. Abdominal wound VAC in place with evidence of purulent drainage in the canister. He has had 15 mL of drainage overnight from the right sided chest tube. J-tube remains in place. He continues on TPN. He continues on IV ciprofloxacin and IV fluconazole with plans for repeat abdominal pelvis CT today by infectious disease and consider discontinuation of antibiotics afterwards. Sodium level today is 130. Still pending approval for discharge to LTAC versus [facility]. 01/25/2024 Patient remains in the intensive care unit he continues off IV Precedex at this time. Continues with TPN. Repeat chest abdomen pelvis CT completed yesterday which shows a decrease seen in the hydropneumothorax within the right lung base with drainage catheter there is no change in the bibasilar infiltrates and small left effusion. There is interval development of a dilated small bowel loop in the mid abdomen consistent with either a focal ileus or partial obstruction. There are findings suggestive of acute diverticulitis of the sigmoid colon with a small pericolic phlegmon abscess however is decreasing in the interval from compared in the prior study from 3.4 cm to 3 cm. There is moderate anasarca and the peritoneal dialysis catheter and small bowel drainage tube unchanged in position. Blood work today reveals a white blood cell count of 20.1, hemoglobin 8.3, sodium 131, BUN of 21, creatinine 0.66, magnesium 1.7. He is on IV Cipro. IV Flagyl was added today by infectious disease. Was made a full code at request of family. 01/26/2024 Patient remains in the ICU. More awake alert and oriented today. He continues on the trach collar. Sounds less congested. Continues on IV cipro and IV flagyl. White blood cell count better today at 16.3. Hgb 7.2. Sodium 130, potassium 3.4. Continues on TPN. 01/27/2024 Patient is seen in follow-up continues to be in the ICU with multiple consul tations following. Family at the bedside and patient is more awake although continues with bronchial congestion and frequent suctioning with the trach collar. Patient remains off Precedex. Patient continues on antibiotics for possible lung abscess that was positive for Pseudomonas with a persistent air leak. Minimal output of the pigtail catheter noted. FiO2 is 40% trach collar maintained on 10 L oxygen. Patient continues on TPN and will adjust accordingly per dietary and pharmacy. Overall prognosis remains extremely poor. Patient remains full code. Per nursing staff patient was denied from select specialties with case management/social work following. 01/28/2024 Patient is eval in follow-up today in the intensive care unit. He had an axillary temp 101.6 for this reason a septic protocol was done including urinalysis blood cultures and viral panel. He remains on IV cipro and IV flagyl. Airleak to the chest tube remains to suction. He continues on a trach collar 40% FiO2 with oxygen at 8 L. He continues on TPN and lipids adjustments per dietary and pharmacy. We are currently not using the J-tube for feedings at this time. He has a wound VAC in place to the midline abdominal incision. He is more awake alert and oriented and less agitated. Sodium level today is 133. Renal function is within normal limits. 01/29/2024 Patient is evaluated today in the ICU with family at the bedside. He continues to have elevated temps. He is more lethargic. White count 20.2 today. Septic work up started. Repeat urinalysis not overly suggesting of infection. Viral panel negative. Chest xray today reveals patchy and confluent bilateral airspace disease similar to slightly worsened. Right-sided pleural catheter demonstrated. There is similar small right pleural effusion. He was started on IV vancomyin, IV meropenem and IV metronidazole. The cipro has been discontinued. Lactic acid 2.3. Sodium 134, renal function normal. Hgb 7.6. Tube feedings remain on hold. Not safe to restart and he continues on TPN/Lipids. 01/30/2024 Patient evaluated today in follow up. Remains in the ICU. Underwent bronchoscopy and repair of a tear in the tracheostomy cuff. Deep sputum culture pending. Patient remains on the mechanical ventilator with ABGs today showing pH level of 0.33, pCO2 of 59, pO2 of 152, HCO3 of 41, total CO2 of 33, hemoglobin 6.6. Lactic acid has normalized. White blood cell count 19.3 today hemoglobin 7.3. Patient is continued on IV propofol as well as backs. Continues on antibiotics in the form of IV vancomycin, IV meropenem, IV metronidazole. Continues on TPN lipids. Chest xray improved throughout both lung ramirez with mild improved aeration at the right lung base. No pneumothorax present. Right-sided chest tube remains in place to suction. 01/31/2024 Patient evaluated today in follow up in the intensive care unit. Remains on the mechanical ventilator, 50% FiO2. Family at the bedside and hoping for extubation today. Continues on TPN/Lipids. Labs today reveal white blood cell count 15.4, hgb 7.0, platelet count 169. Sodium 136, potassium 5.4. BUN 29, creatinine 0.61. Chest xray today reveals ongoing multifocal patchy and confluent airspace disease. A small to moderate right pleural effusion may be slightly increased. Sputum culture from bronchoscopy continues to show pseudomonas. Chest tube remains in place. on IV vancomycin and IV meropenem. 02/01/2024 Evaluated today in follow-up in the intensive care unit. Patient remains on me chanical ventilator with a 50% FiO2. His repeat sputum cultures from the bronchoscopy continue to show Pseudomonas. He continues on IV vancomycin and IV meropenem infectious diseases following closely. He continues with a wound VAC to his midline abdominal incision. Per surgery they feel that the fistula from his J-tube is mature he is currently off of tube feedings at this time though continues on TPN lipids. White blood cell count today is 15.3, hemoglobin 7.2, sodium 140, potassium 5.0, BUN of 33, creatinine 0.59. 2.0 mL of drainage over the last couple days. His chest x-ray today reveals no change in the marked diffuse cardiopulmonary process including scattered interstitial and partially consolidative infiltrates and bilateral pleural effusions which remain unchanged as compared to prior. 02/02/2024 Patient is evaluated today in follow-up in the intensive care unit. Patient remains in the mechanical ventilator with an FiO2 of 50%. His repeat sputum cultures are showing Pseudomonas now with drug resistance Pseudomonas is susceptible to amikacin and tobramycin with intermediate susceptibility to Zosyn and gentamicin. Antibiotics have been adjusted to Tobramycin and IV zosyn. REVIEW OF SYSTEMS: Unable to complete patient with increasing lethargy today. PHYSICAL EXAMINATION: GENERAL: The patient is alert and oriented x2, not in any acute distress. Well developed, ill-appearing, elderly appearing. Trach Collar with an FiO2 of 40%, 10 L O2. HEENT: Pupils are round and equally reacting to light. EOMI. No scleral icterus. No conjunctival pallor. Normocephalic, atraumatic. No pharyngeal erythema. No thyromegaly. CARDIOVASCULAR: S1 and S2 present. No murmurs, rubs, or gallops. PULMONARY: Chest is clear to auscultation, no wheezing or crackles. Diminished. ABDOMEN: Soft, nontender, nondistended, normoactive bowel sounds. No palpable organomegaly. MUSCULOSKELETAL: No joint swelling or deformity. EXTREMITIES: No cyanosis, clubbing, or pedal edema. Peripheral edema 1+ NEUROLOGICAL: Diffuse weakness throughout SKIN: No rashes. Stage 2 sacral decub Assessment -Worsening leukocytosis septic work up initiated. -Large superficial gastric antral ulceration involving the gastric antrum extending into the pylorus with gastric outlet obstruction. 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 Status post Jtube insertion and patient has been NPO. -Acute hypoxemic respiratory failure from aspiration pneumonia on admission requring mechanical ventilation. Now post tracheostomy. -Also Bacterial pneumonia and sepsis and septic shock present on admission with right lung abscess cultures showing citrobacter; pseudomonas, klebsiella. Status post bronch on 01/07/24. -Acute kidney injury. Possible ATN from hypotensive shock: Resolved -Breakdown of tracheostomy stoma site. Dressing in place -Acute pulmonary edema and fluid overload from hypoalbuminemic state and fluids from IV.: Has been getting Lasix and dialysis: Both held -Altered mentation. Possibly encephalopathy. Could be delirium. Was improved. -Generalized cerebral dysfunction on EEG; [place] on oral keppra -Critical care poly- Pedro neuropathy: Slow to respond -Gallstones, asymptomatic -Small l bowel perforation at site of jejunostomy tube tip with balloon..: Portion of small bowel resected. On November 24. New J-tube was placed.- drainage to gravity:-Now discontinued December 19: J-tube blocked. J-tube replaced on December 20 over wire December 21: Leaking around the J-tube site. Feeding held December 23: J feeding was started yesterday evening but again started leaking increasingly around the J-tube site-feeding held again December 24: J-tube feeding has been held. -Midline abdominal incision wound dehiscence midline wound Vac in place. -Acute recurrent atrial fibrillation-converted to sinus rhythm -Hypertension, currently hypotensive. Currently off pressor support. -Normocytic anemia likely to secondary underlying lymphoma. Also anemia of bl ood draw. Underlying iron deficiency; received PRBC x 6 units and IV iron. -Severe thrombocytopenia. Would consider coagulation disorder secondary to infection., In the setting of underlying lymphoma.: Fluctuating with infection. Currently resolved. -Acute blood loss anemia -Sacral stage II decub ulcer -GERD -Acute diarrhea secondary to tube feeding. C. difficile ruled out. Resolved. Tube feedings on hold. GI prophylaxis Full Code Patient is now post bronchoscopy and tracheostomy tube replacement he continues today on the mechanical ventilator and under IV sedation. White blood cell count is 11.1, hgb is 6.4. His repeat sputum comes back again showing Pseudomonas there is now significant drug resistance as compared to the first positive pseudomonas which was pansensitive. Right pigtail catheter remains in place, noted airleak and this has been placed to suction. RAYA drain was removed. Wound vac to the midline abdomen remains in place. Continue pressure offloading and barrier cream to the sacral decub. Patient was denied going to select specialties and per nursing staff and case management/social work, no safe financial planner excepting ECF or facility at this time. He has been reintubated, the trach was changed out yesterday. Overall prognosis is extremely poor and guarded at this time. at the bedside and remains hopeful. Patient will get 1 units of packed red blood cells today and blood work will be repeated tomorrow. Patients has made the patient full code again. Code status to be addressed and overall plan of care and prognosis tomorrow. He has been in the hospital 82 days. The impression and plan of care has been dictated by Carol Ulrich, Nurse Practitioner as directed. Dr. Jozef MD I have performed a history and physical examination and medical decision making of this patient, discussed the same with the dictator, and agree with the dictators assessment and plan as written, documented as a scribe. Based on total visit time, I have performed more than 50% of this visit. Objective - Vital Signs Vital signs: Vital Signs Temp 98.1 F 02/02/24 15:26 Pulse 75 02/02/24 15:26 Resp 20 02/02/24 15:26 BP 152/97 02/02/24 15:26 Pulse Ox 100 02/02/24 15:26 FiO2 50 02/02/24 12:00 Intake & Output 02/01/24 02/02/24 02/02/24 18:59 06:59 18:59 Intake Total 7714.410 3372.728 1057.214 Output Total 1620 870 275 Balance 322.214 810.728 782.214 Weight 108 kg Intake: IV 1200 1400 200 0.9 Normal Saline @ KVO 120 120 110 Piperacillin-Tazobactam 3 100 .375 gm In Sodium Chloride 0.9% 100 ml @ 25 mls/hr IVPB Q8HR [facility] Rx# :[id number] TPN 1080 1080 90 Tobramycin Sulfate 160 mg 100 In Sodium Chloride 0.9% 100 ml @ 104 mls/hr IVPB Q8HR [facility] Rx#:[id number] Intake, IV Titration 742.214 280.728 97.214 Amount Dexmedetomidine/0.9% NaCl 168.581 280.728 97.214 (Pmx) 400 mcg In Empty Bag 1 bag @ 0.2 MCG/KG/HR 5.065 mls/hr IV .[id number] [facility] Rx#:[id number] Fat Emulsion 20% 250 ml 250 In Empty Bag 1 bag @ 21 mls/hr IV TuThSa@0900 [facility] Rx#:[id number] Meropenem 1 gm In Sodium 100 Chloride 0.9% 100 ml @ 33 .3 mls/hr IVPB Q8HR [facility] Rx#:[id number] Piperacillin-Tazobactam 3 100 .375 gm In Sodium Chloride 0.9% 100 ml @ 25 mls/hr IVPB Q8HR [facility] Rx# :[id number] propofoL 1,000 mg In 123.633 Empty Bag 1 bag @ 15 MCG/ KG/MIN 9.288 mls/hr IV . [id number] [facility] Rx#:[id number] TPN/PPN 450 TPN 450 Blood Product 310 Rc As-1 Unit 310 [id number] Output: Chest Tube Drainage 0 30 0 Chest Tube Right 0 30 0 Urine 1620 840 275 Other: Voiding Method Indwelling Catheter Indwelling Catheter # Bowel Movements 1 ABP, PAP, CO, CI - Last Documented Arterial Blood Pressure 173/76 - Labs CBC & Chem 7: 02/02/24 06:06 02/02/24 06:06 Labs: Abnormal Lab Results - Last 24 Hours (Table) 02/01/24 02/01/24 02/01/24 Range/Units 07:20 17:30 23:22 WBC (3.8-10.6) k/uL RBC (4.30-5.90) m/uL Hgb (13.0-17.5) gm/dL Hct (39.0-53.0) % MCHC (31.0-37.0) g/dL RDW (11.5-15.5) % ABG pCO2 (35-45) mmHg ABG pO2 (83-108) mmHg ABG HCO3 (21-25) mmol/L ABG Total CO2 (19-24) mmol/L ABG O2 Saturation (94-97) % Hemoglobin (13.0-17.5) gm/dL Carbon Dioxide (22-30) mmol/L BUN (9-20) mg/dL Creatinine (0.66-1.25) mg/dL Glucose (74-99) mg/dL POC Glucose (mg/dL) 177 H 211 H (70-110) mg/dL Calcium (8.4-10.2) mg/dL Crossmatch See Detail 02/02/24 02/02/24 02/02/24 Range/Units 05:24 06:03 06:06 WBC 11.1 H (3.8-10.6) k/uL RBC 2.15 L (4.30-5.90) m/uL Hgb 6.4 L* (13.0-17.5) gm/dL Hct 21.0 L (39.0-53.0) % MCHC 30.5 L (31.0-37.0) g/dL RDW 16.0 H (11.5-15.5) % ABG pCO2 61 H (35-45) mmHg ABG pO2 115 H (83-108) mmHg ABG HCO3 36 H (21-25) mmol/L ABG Total CO2 38 H (19-24) mmol/L ABG O2 Saturation 99.4 H (94-97) % Hemoglobin 6.8 L* (13.0-17.5) gm/dL Carbon Dioxide (22-30) mmol/L BUN (9-20) mg/dL Creatinine (0.66-1.25) mg/dL Glucose (74-99) mg/dL POC Glucose (mg/dL) 213 H (70-110) mg/dL Calcium (8.4-10.2) mg/dL Crossmatch 02/02/24 02/02/24 Range/Units 06:06 12:54 WBC (3.8-10.6) k/uL RBC (4.30-5.90) m/uL Hgb (13.0-17.5) gm/dL Hct (39.0-53.0) % MCHC (31.0-37.0) g/dL RDW (11.5-15.5) % ABG pCO2 (35-45) mmHg ABG pO2 (83-108) mmHg ABG HCO3 (21-25) mmol/L ABG Total CO2 (19-24) mmol/L ABG O2 Saturation (94-97) % Hemoglobin (13.0-17.5) gm/dL Carbon Dioxide 35 H (22-30) mmol/L BUN 34 H (9-20) mg/dL Creatinine 0.60 L (0.66-1.25) mg/dL Glucose 191 H (74-99) mg/dL POC Glucose (mg/dL) 219 H (70-110) mg/dL Calcium 7.8 L (8.4-10.2) mg/dL Crossmatch Microbiology - Last 24 Hours (Table) 01/30/24 04:06 Gram Stain - Final Sputum Sputum Culture - Final Pseudomonas aeruginosa 01/29/24 13:40 Gram Stain - Final Sputum Sputum Culture - Final Pseudomonas aeruginosa Assessment and Plan Time with Patient: Less than 30
[2024-02-02] MEDS: [UNRECOGNIZED DRUG - REMARK] IV SCH (16:30)
[2024-02-02] MEDS: TOBRAMYCIN TROUGH DUE 1 EACH MISC MISCELLANE ONE (16:30)
[2024-02-02] MEDS ORDERED: TOBRAMYCIN PEAK DUE 1 EACH MISC MISCELLANE ONE (18:00)
[2024-02-02 18:22] LABS: Glucose,Whole Blood 211 mg/dL (70-110)
[2024-02-02 22:58] LABS: Glucose,Whole Blood 200 mg/dL (70-110)
[2024-02-03 05:30] LABS: ABG HCO3 33 mmol/L (21-25); ABG Oxygen Saturation 99.5 % (94-97); ABG PCO2 44 mmHg (35-45); ABG PH 7.49 (7.35-7.45); ABG PO2 122 mmHg (83-108); ABG TCO2 35 mmol/L (19-24); Allen Test Performed? Yes
[2024-02-03 05:31] LABS: Glucose,Whole Blood 204 mg/dL (70-110)
[2024-02-03 06:50] LABS: African American GFR (CKD) >90 (>60 ml/min/1.73 sqM); Anion Gap 2 mmol/L; Blood Urea Nitrogen 37 mg/dL (9-20); Calcium 7.7 mg/dL (8.4-10.2); Carbon Dioxide 34 mmol/L (22-30); Chloride 106 mmol/L (98-107); Glucose 185 mg/dL (74-99); Non-African American GFR(CKD) >90 (>60 ml/min/1.73 sqM); Potassium 3.1 mmol/L (3.5-5.1); Sodium 142 mmol/L (137-145)
[2024-02-03 07:00] LABS: Basophils % (A) 0 %; Eosinophils # (A) 0.1 k/uL (0-0.7); Eosinophils % (A) 1 %; HCT 27.2 % (39.0-53.0); Hypochromasia Marked; Lymphocytes # (A) 2.5 k/uL (1.0-4.8); Lymphocytes % (A) 15 %; MCH 30.3 pg (25.0-35.0); MCHC 31.6 g/dL (31.0-37.0); MCV 95.9 fL (80.0-100.0); Mean Platelet Volume 7.9; Monocytes # (A) 0.5 k/uL (0-1.0); Monocytes % (A) 3 %; Neutrophils # (A) 13.2 k/uL (1.3-7.7); Neutrophils % (A) 80 %; Platelet Count 385 k/uL (150-450); RBC 2.84 m/uL (4.30-5.90); RDW 15.9 % (11.5-15.5); WBC 16.5 k/uL (3.8-10.6)
[2024-02-03 07:02] LABS: HGB 8.6 gm/dL (13.0-17.5)
[2024-02-03] MEDS ORDERED: POTASSIUM CHLORIDE 20 MEQ in WATER FOR INJECTION 1 100ML.BAG IVPB SCH (08:00)
[2024-02-03] MEDS: POTASSIUM CHLORIDE 10 MEQ in WATER FOR INJECTION 1 100ML.BAG IVPB SCH (08:33)
--- NOTE | 2024-02-03 09:12 | XR ---
EXAMINATION TYPE: XR chest 1V portable DATE OF EXAM: 02/03/2024 5:35 AM COMPARISON: 02/02/2024 CLINICAL INDICATION: Male, 73 years old with history of pt on mechanical ventilator, , FINDINGS: Tracheostomy cannula present. Right anterior chest wall injection port with catheter tip in the infer ior cavoatrial junction. Left PICC tip likely in the upper right atrium. There appears to be right-si ded pleural catheter. Heart borderline enlarged. Diffuse interstitial and patchy opacities persist. P rominent anterior density projecting below the diaphragm. IMPRESSION: 1. Ongoing extensive interstitial and patchy bilateral infiltrates/pulmonary edema. 2. New prominent air density below the diaphragm. Pneumoperitoneum should be excluded. Called to bibi Welsh on 2SICU at 9:08am. [facility], , 02/03/2024 9:10 AM
[2024-02-03] MEDS: FUROSEMIDE 10 MG/ML 4 ML VIAL IV STA (09:42)
[2024-02-03 11:55] LABS: Glucose,Whole Blood 199 mg/dL (70-110)
--- NOTE | 2024-02-03 13:08 | P.PN ---
Progress Note - Text Progress Note Date: 02/03/24 Chief Complaint: On the ventilator This is a 73-year-old patient, follows with Dr. Patricia Deal. Patient was seen this morning in the ICU. Patient's and daughter at the bedside. History obtained predominantly by the . Patient been having trouble with his stomach symptoms for close to 8 months. Patient underwent EGD by Dr. Sahara Cheng yesterday. Patient was found to have ulcerated around the antrum and obstruction to the pylorus. A lot of retained food was found. Patient aspirated. Had to be intubated and brought to the ICU. On a Levophed drip. FiO2 50 and a PEEP of 6. Patient had been losing weight lost about 25 pounds. Previously has a history of mitral valve prolapse. November 13: ICU. Patient remains on Precedex drip and propofol drip. Did not do well attempted extubation yesterday. Patient been off Levophed. NG tube to suction. Spoke to patient's and son at the bedside. Biopsy results awaited. Hemoglobin dropped to 6.9 this morning. Get a unit of blood. November 14: ICU. Up in a chair. Extubated yesterday. NG tube to suction. at the bedside. 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 Oncology was consulted. They have ordered a port. Results discussed with Dr. Sahara Cheng. General surgery was consulted for J-tube placement. Discussed with at the bedside. Patient getting IV fluids, IV Zosyn,. Patient has been on IV amiodarone for A-fib-back in sinus rhythm. Multiple PACs. Did receive unit of blood yesterday. Also IV ferric gluconate. November 15: ICU. Patient earlier today underwent jejunostomy tube placement and a port placement. Patient awake. Answering questions. NG tube to suction present. Updated patient's . Patient remains on IV amiodarone and IV Zosyn. November 16: ICU. Up in the chair. NG tube present but not to suction. Trickle feeding through the jejunostomy tube should be started today. Dietitian has been on board. IV Zosyn to continue. Patient's and his sister at the bedside. Discussed. Also spoke with Dr. Serna. Given patient has no other predisposing cardiac factors for the A-fib except acute illness. His LV function is normal. Left atrium is normal. He has already been loaded with IV amiodarone. Will switch him to oral Lopressor 12.5 twice daily. Hence will DC amiodarone. Patient yesterday had wheezing was put on bronchodilators steroids per pulmonary. November 17: Propped up in bed. NG tube was discontinued. Sinus rhythm. Remains NPO. Getting G-tube feeding at 40 cc an hour. Dietitian following. Get arrangements done for DC home tomorrow including tube feeding. Increase activity discussed with patient and elder daughter at the bedside. Still requiring oxygen. Incentive spirometry. November 18: Patient up in recliner. Earlier today spoke to social media specialist David. Informed patient is rather weak and will be going to the [facility]. Looking at authorization. Denae came to the room and spoke to patient his and his daughter. They are very keen to take the patient home as 3 daughters all nurses and they will take care of him at home. Patient earlier today to abdominal cramping and some loose stools.'s tube feeding was held. Told the nurse to start back at the rate of 40 cc an hour. He was before the getting it at 55 cc an hour. Incentive spirometry was again emphasized. Patient remains on 4 L of oxygen. November 19: I saw the patient this morning. Hence I am in the evening. Morning was sitting with his sons. Has some edema. Lungs had crackles I gave him 40 mg of Lasix. He did make good urine. Tube feeding was held from the p revious evening of because of abdominal cramping. Acute abdominal series showed nonspecific bowel gas pattern and SBO to be ruled out. Family and patient was updated. Told him discharge will depend on day by day. Later this afternoon CT scanAnd abdomen pelvis done. Showed small bowel to be 3 point centimeter dilated. Some anasarca. Gastric findings. Gallstones. Later spoke to Dr. Irby from general surgery. They will further review and decide about further plan of action. Will give further dose of IV Lasix because of fluid overload from likely hypoalbuminemia and IV fluids previously received. Patient may take his pills by mouth. Total time spent today about 1 hour with over 40 minutes of discussion. Patient did state his breathing is better after Lasix this morning. November 20: Saw the patient this morning. was present. Patient received 2 more doses of Lasix. Diuresed well. Breathing much better. Lungs are sounding better. Discussed with Dr. Zepeda other surgeon. He is taking 3 cc out of the balloon and the gastrostomy tube. Started trickle feeding at 5 cc an hour. Will see how this does. Later in the day ran into the and the daughter again. Did update them on the same. Dilaudid was discontinued yesterday but morphine was ordered by surgery for patient having pain. Concerns about GI issues with that we will DC the morphine. As family does not want the same. November 21: Patient reclining bed. Tired. Several family members at the bedside. Including his and eldest daughter. Patient started on trickle feed yesterday at 5 cc an hour. This morning he has been on 10 cc an hour. Still having some loose stools. C. difficile was ordered. Patient on 2 L of nasal cannula. Has diuresed well. Will give an additional dose of Lasix today. If C. difficile is negative and the diarrhea is from the tube feedings we may have to use a fecal management system to keep him comfortable. Otherwise patient remains NPO. Dietitian is following the patient. Care was discussed length with patient the and daughter at the bedside. Questions answered. Liquid Tylenol has been added for abdominal pain. Avoid narcotics. Elevated white count likely from Solu-Medrol 11/23/2023--patient was feeling better today. Multiple family member at bedside. No issues overnight. Normal saline at 10 cc an hour, tube feeding at 20 cc an hour, remains on Zosyn, on 3 L oxygen. Afebrile. Heart rate 62, respiratory rate 16, blood pressure 114/67, saturating 91% on 3 L. WBCs 14.5, 9.7 hemoglobin. Platelet 242. BMP is unremarkable. Pulmonary and general surgery following. General surgery recommended to continue tube feeds at 20 cc/h. 11/24/2023--patient reported significant abdominal discomfort, also noted to have leak around G-tube. General surgery is following, evaluated the patient at bedside, adjusted tube feeds. Also reported having diarrhea, on 2 L oxygen, went up to 5 L. Blood pressure was low, 500 mL fluid bolus with close monitoring of respiratory status ordered. Currently on DuoNebs, Solu-Medrol, will continue Zosyn. Chest x-ray showed a left lower lobe infiltrate. Abdominal x-ray showed multiple air-fluid levels. CT abdomen showed multiple dilated small bowel loops, consistent with obstruction, pneumoperitoneum, cholelithiasis and ascites. WBCs 14.1, platelet 255, hemoglobin 8.9. NG tube in place. Family at bedside. patient transferred to SICU for close monitoring. 11/25/23--patient is currently in the ICU, required Levophed overnight due to low blood pressure, low urine output with creatinine trending up. Nephrology following. Security Officer Supervisor also following. Patient remains n.p.o., NG tube in place, following NG tube insertion patient had total of 2 L output, J-tube was draining approximately 200 cc over last 8 hours, continues to have abdominal pain and abdominal tenderness. Patient on IV fluids. Currently on 4 L oxygen. WBCs 8.2, hemoglobin 12.3, platelet 188. Chest x-ray earlier today showed right sided port and a stable left lung airspace disease, NG tube in place. Patient currently on Zosyn, on IV Dilaudid for pain control, on IV Solu-Medrol. General surgery planning for OR today, started on TPN. 11/26/23--patient was seen and examined today. Patient is currently sedated, intubated on mechanical ventilation. Family at bedside. Patient underwent ex lap, abdominal washout, small bowel resection with new feeding jejunostomy tube placement yesterday, small bowel was noted to be perforated with significant contamination of abdominal cavity. Patient is currently on vancomycin and Zosyn. Creatinine went up to 2.85, nephrology following, recommended to continue IV fluids, avoid nephrotoxin Preserved EF on echocardiogram.. Patient currently on Levophed, vasopressin in the ICU for close monitoring. Patient is afebrile, heart rate 122, blood pressure 129/76, currently on mechanical ventilation, sedated. November 26: ICU. Intubated. FiO2 60 and a PEEP of 5. Drips include IV amiodarone. Heart rate was up early did get fired microgram of IV digoxin and 2.5 mg of IV Lopressor. Did drop her blood pressure bit. Urine output was low. Received 80 mg of IV Lasix. Ahmet to 150 cc. Other drips include IV propofol, vasopressin, Levophed. TPN was started yesterday. Antibiotics include IV Zosyn and vancomycin. Patient has a J-tube to drainage to gravity. Spoke to patient's younger daughter and at the bedside. Prognosis guarded. Continue current treatment plan. Chest x-ray shows right lower lobe consolidation. Small pleural effusion. November 27: ICU. Intubated. FiO2 55 and a PEEP of 5. Antibiotics include IV vancomycin. Drips include Levophed at a small dose, IV vasopressin, propofol, amiodarone. Patient converted to sinus rhythm this morning. Getting TPN and normal saline at 75 cc an hour. Urine output about 25 cc an hour. RAYA drain put out about 260 cc last 12 hours that is last plant operator/shift supervisor. NG tube with bilious output. And also GI J-tube output to gravity. Spoke to patient's and daughter at the bedside. They understand patient still not out of the kee. Platelets have dropped-therefore probably Zosyn stopped. November 28: ICU. Intubated. FiO2 55 and a PEEP of 5. Patient is in sinus rhythm. Seen this morning. Due for dialysis catheter this afternoon. Urine output about 15 to 20 cc an hour. Patient is on IV Lasix 80 mg every 12. Saline is KVO. Drips include IV propofol vasopressin. Patient having significant output through the RAYA drain and the jejunostomy tube to drainage. Creatinine had been getting worse. Patient's at the bedside. Understands patient's remains critically ill. Hemoglobin is down to 7. Given that patient's pain hypotensive, and on vasopressin we will give a unit of blood with dialysis. Getting TPN antibiotic changed to IV meropenem November 29: ICU. Intubated. FiO2 55 and a PEEP of 5. Remains in sinus rhythm. Getting TPN. Dialyzed yesterday and this morning. About 1000 cc removed. Urine output about 50 cc an hour. Patient is on IV propofol. Off vasopressin. Still having significant output through the RAYA drain and jejunostomy tube. Patient received a second unit of blood yesterday. Patient's and daughter at the bedside. I did discuss guarded prognosis. Did asked them to revisit CODE STATUS.. Getting IV meropenem. November 30: ICU. Intubated. Did get a sedation holiday t today. Back on propofol. Getting TPN. Still getting IV Lasix. Fair urine output. Jejunostomy tube in last 8 hours was about 30 cc output. RAYA drain in the 8 hours had about 180 cc output. Telemetry shows sinus rhythm. NG tube has low intermittent suction with negative output. On the vent with FiO2 40 and a PEEP of 5. No hemodialysis today. Discussed with the and eldest daughter at the bedside. IV meropenem-patient's sputum had grown Citrobacter freundii and Pseudomonas aeruginosa. December 01: ICU. Intubated. Jejunostomy tube to gravity. Only 10 cc output in last 24 hours. RAYA drain. About 190 cc last 6 hours. Nasogastric tube to low intermittent suction. Minimal output. Patient is on a small dose of propofol 5 mics. Telemetry shows sinus rhythm. Patient started on small dose of Cleviprex this morning. Blood pressure. Getting TPN. FiO2 35 and PEEP of 5. Discussed with the at the bedside. Hemodialysis today December 02: ICU. Patient remains intubated. FiO2 35 PEEP of 5. Patient is on IV propofol. IV Cleviprex was discontinued yesterday. Also remains on TPN. Telemetry shows sinus rhythm. NG tube is good no output. Still significant output through the RAYA drain. Jejunostomy tube has minimal output. Patient had hemodialysis today 2 L of fluid was removed. Oral half liters yesterday. Patient getting a sedation holiday. General Surgery started the patient on trickle feeding at 10 cc an hour. I did speak to patient's at the bedside. Prognosis remains guarded but there is some improvement. December 03: ICU. Intubated. FiO2 35 PEEP of 5. Drips include IV propofol and Precedex. Getting TPN. Telemetry shows sinus rhythm. Remains on IV Lasix 80 mg twice a day. IV meropenem. Because patient gets easily agitated when transitioning off propofol he has been switched over to Precedex. For hemodialysis today. December 04: ICU. Intubated. FiO2 35 and a PEEP of 5. Patient been taken off propofol is on Precedex. Telemetry sinus rhythm. J-tube with minimal output. RAYA drain with decreased output. NG tube to suction minimal output. Family wanted to hold off trickle feeding until cleared by oncology. Which he did today. Trickle feeding will be started today. Spoke to patient's and one of the daughters at the bedside. Dr. Russ is spoken to the earlier this point they want to do further tracheostomy tube. October 4: ICU. Intubated. FiO2 35 PEEP of 5. Patient remains on Precedex and PPN. Patient's dialysis catheter was not functioning is getting another [address] Bobby this afternoon. Remains on IV meropenem. Has a RAYA drain in the jejunostomy tube to gravity. NG tube to low intermittent suction. No family at the bedside. December 06: ICU. Intubated. FiO2 35 PEEP of 5. RAYA drain putting out about approximately 120 cc per shift. Patient on IV Precedex. FiO2 35 PEEP of 5. Telemetry-sinus rhythm. Patient occasionally been put on small dose of Levophed specially for hemodialysis getting it today. Also started on midodrine for low blood pressure. Tolerating tube feeding at 10 cc an hour. Also had a bowel movement. Mentation has not improved. Even with sedation holiday. Neurology consulted. CT brain shows no acute process. December 07: ICU. Intubated. FiO2 35 PEEP of 5. Telemetry-sinus rhythm. NG tube to suction low intermittent minimal output. Getting TPN. Tube feeding at 20 cc an hour. RAYA drain averaging over 100 cc per shift. Remains on Precedex. EEG was done today. Discussed with at the bedside. Family is currently not inclined for tracheostomy tube today. Day 13 of being intubated December 08: ICU. Intubated. FiO2 35 PEEP of 5. Patient is put on back on propofol per bindery machine setter Dr. JIMENEZ. EEG did show some potential for spikes was put on Keppra by neurology. Telemetry shows sinus rhythm. NG tube to suction with no output. Tube feeding was put on hold because of questionable discharge on the site. Being restarted today. RAYA drain is 150 cc last 12-hour shift. Patient does open eyes. Family has decided to proceed with tracheostomy and surgery has been consulted for the same. Spoke to the at the bedside. For hemodialysis today. December 09: ICU. Intubated FiO2 35 PEEP of 5. Patient seen this morning. Pending tracheostomy placement this afternoon. Remains NPO. G-tube feeding was held overnight. RAYA drain putting out about 100 cc per shift. Received a unit of blood for hemoglobin of 6.6. On 25 mics of propofol. Getting TPN and meropenem. Spoke to the at the bedside. Patient became hypotensive with dialysis yesterday. Levophed had to be given. Only 800 cc were removed yesterday. No hemodialysis today. December 10: ICU . FiO2 35, PEEP 5. Tracheostomy was done yesterday by Dr. Ewing. G-tube feeding was started today at 10 cc an hour. Dietitian following. RAYA drain 12-hour shift overnight put out about 30 cc. Patient hemodialysis today about 1 L removed. Patient has a sacral stage II decub with a dressing. On propofol 20 mics. Spoke to at the bedside. TPN. Meropenem was discontinued yesterday. December 11: ICU. FiO2 35 PEEP of 5. Tracheostomy. NG tube was discontinued. No hemodialysis today. Telemetry shows sinus rhythm. J-tube feeding at 40 cc an hour. TPN was discontinued. Patient has been off propofol also. PICC line in place. Patient had a EEG done today. Spoke to patient's elder daughter at the bedside. May open eyes occasionally. Not really following commands December 12: 73-year-old white male with history of chronic abdominal pain for the last 8 months has been treated with Protonix 40 mg daily for the last 3 months with no improvement. Patient had a 22 pound weight loss in the last [address] of the abdomen and pelvis 3 weeks ago showed thickening of the antral wall with pathological adenopathy posterior to the stomach suspicious of neoplasm. Today the patient underwent elective upper endoscopy to evaluate further, patient received IV sedation by anesthesia endoscope was inserted into the mouth, esophagus was intubated without any difficulty there was evidence of large amount of liquid and solid food noted in the stomach suggestive of gastric outlet obstruction. Scope could not be advanced through the pylorus, however in the prepyloric area there was a large superficial ulceration identified with multiple biopsies were done from this area. The body cardia and fundus could not adequately visualize because of large amount of retained food in the s tomach. Scope was withdrawn back to the stomach and upon careful examination the mucosa of the antrum body and cardia as well as the fundus appeared normal. Procedure was being performed and biopsies were done patient threw up and subsequently became hypoxic there was clearly evidence of witnessed aspiration anesthesia intubated the patient, procedure was terminated, and the patient was transferred to the ICU, this consult was initiated. Patient is now on assist- control rate of 20 tidal volume 500 FiO2 70% PEEP of 10 ABG is pending, earlier ABG showed profound hypoxia patient is on propofol at 50 mcg/kg/min, next ABG is pending. Chest x-ray showed chronic changes without evidence of acute pulmonary disease. 12/14/2023 Patient remains in the ICU, generally weak Patient s/p tracheostomy G-tube in place Patient still has fever and mild tachycardia but tachycardia is improving, leukocytosis improving as well. Hemoglobin 8.1. Creatinine 3.0 and nephrology team on the case. He has mild transaminitis. He was getting Zosyn which is held now, nowCalcitonin is pending 12/14 Patient shon in the ICU, he is still encephalopathic and does not follow command. Neurology service following closely. He is status post tracheostomy. Also J-tube His abdomen looks soft and on exam he has mild coarse secretions. Has a Abarca catheter with clear urine His pro- Calcitonin is still high but trending down 3.0 down to 1.9 No fever this morning WBC slightly less at 16.3 Patient currently off antibiotic He is getting steroids IV Solu-Medrol which might contribute to his leukocytosis. Also he is on IV Keppra by neurologist 12/14 Patient remains confused in the ICU calm, he had a good night per family member and staff. Tracheostomy in place Patient has occasional coughing spells, patient also developed some partial wound dehiscence in his abdomen, surgery team are aware and are going to evaluate the patient Patient also has positive blood culture from 12/13: Gram-positive cocci in clusters. Patient received one-time dose of IV vancomycin. Patient also had fever 2 days ago, leukocytosis and total elevated pro- Calcitonin. Therefore we are going to consult infectious disease team. As his antibiotic Zosyn was stopped few days ago. Currently patient KVO He has good urine output December 16: ICU. Trach. Congested. Requiring suctioning. No hemodialysis today. Getting G-tube feeding at 50 cc an hour. FiO2 30 and a PEEP of 5. On IV Precedex. Eyes open. Does follow commands. Weakness in the limbs. Spoke to at the bedside. Sputum positive for Klebsiella oxytoca and Pseudomonas aeruginosa. December 17: ICU. On trach. Currently cough with increased secretions requiring suctioning. Adding scopolamine patch. Very much clear secretion. CT scan is showing right upper lobe lung abscess. G-tube feeding at 50 cc an hour. Hemodialysis today. RAYA drain putting out about 140 cc a shift. Serous. Has been midline incision wound dehiscence. Wound VAC was placed on it. Stage II ulcer. Patient is on Precedex drip 0.15 mics. Urine output is good about 6200 cc an hour. Spoke to the at the bedside. Patient currently not stable for transfer to LTAC. No limb movements. PT OT on the case. otherwise awake does follow simple commands by face December 18: ICU. Patient seen this afternoon. Because of pain getting IV Dilaudid. No nasal cannula on room air. Does move about his head. Telemetry shows sinus rhythm. FiO2 30 and a PEEP of 5. Patient started on scopolamine patch yesterday has decreased secretions today. Good urine output. Tube feeding at 60 cc an hour. Wound VAC on incisional would be high since in place. RAYA drain continues to make output. No hemodialysis today December 19: ICU. Patient was seen earlier today. FiO2 30 and a PEEP of 5. Sinus rhythm. Awake. Does follow with eyes. Tube feeding got obstructed tube feedings held for now. Increasing oozing from the incision drainage site. at the bedside. Wound VAC remains in place. Good urine output. Dialysis held today. December 20: ICU. Per nephrology no dialysis today. 1 L fluid bolus given. J- tube was replaced over the wire by Dr. Ewing from surgery. On Precedex 0.6 mcg. FiO2 30 and a PEEP of 5 on the vent. RAYA drain putting out of around 100 cc per shift. at the bedside. Drainage through the abdominal incision wound. CT scan abdomen showed tube placement in the small bowel. Stable large right lower quadrant mass with a fluid level. December 21: ICU. No dialysis today. Patient started on trickle feeding through the J-tube yesterday. He started leaking around the J-tube site. Tube feeding was held. Dressings were placed. Wound VAC remains on the incision. Still having output through the RAYA drain. Patient remains on Precedex 0.4 mcg. FiO2 30 and a PEEP of 5. Sinus rhythm. at the bedside. December 22: ICU. Patient was seen this morning today by me. No dialysis today. Patient's and daughter at the bedside. FiO2 30 and a PEEP of 5. Sinus rhythm. Still having significant secretions through the tracheostomy tube. On Precedex 0.4 mcg. Getting D5W IV fluids. Tube feeding remains to be on hold since yesterday. Still output of RAYA drain. Awaiting input from surgery. Discussed with the and daughter. December 23: ICU. Saw the patient this afternoon. Because of good output of urine dialysis has been discontinued. Telemetry shows sinus rhythm. FiO2 30 and a PEEP of 5. RAYA output has been around 8200 cc an hour. Good urine output. Patient does have very slight movement of the limbs. Wound VAC is putting out about 20 cc per shift. Yesterday when trickle feeding was started patient's J- tube drainage also started leaking around the insertion site. Tube feeding was held. Patient remains on IV Zosyn and Precedex at 0.3 mcg. I had a very lengthy discussion with patient's daughter and at the bedside overall guarded prognosis. Later surgery spoke to the family, and then the nurse called me that family was wanting transferred to [facility]. I spoke to Dr. Irby. They felt they could not offer anything more at this point. I did call the [facility] transfer steam cleaner. Gave them the reason for transfer. Later in the ICU nurse informed me through [employer] that [facility] had declined the transfer. Total time spent today about 50 minutes with over 30 minutes of discussion. December 24: ICU. Patient is doing not too well. Sinus rhythm. Drips include norepinephrine and IV propofol. Surgery did put 2 stitches around the J-tube insertion site. Started on TPN today. FiO2 30 PEEP of 5. Patient became hypothermic put on a Manjit hugger. Also hypoglycemic. Decreased urine output. IV fluids increased. Patient's son was at the bedside. I did speak to patient's eldest daughter outside in the waiting room. Did tell the patient doing very poorly. I did try to call the on the phone number she has gone home. Started an IV antifungal today. December 26, 2023 73-year-old white male with history of chronic abdominal pain for the last 8 months has been treated with Protonix 40 mg daily for the last 3 months with no improvement. Patient had a 22 pound weight loss in the last [address] of the abdomen and pelvis 3 weeks ago showed thickening of the antral wall with pathological adenopathy posterior to the stomach suspicious of neoplasm. Today the patient underwent elective upper endoscopy to evaluate further, patient received IV sedation by anesthesia endoscope was inserted into the mouth, esophagus was intubated without any difficulty there was evidence of large amount of liquid and solid food noted in the stomach suggestive of gastric outlet obstruction. Scope could not be advanced through the pylorus, however in the prepyloric area there was a large superficial ulceration identified with multiple biopsies were done from this area. The body cardia and fundus could not adequately visualize because of large amount of retained food in the stomach. Scope was withdrawn back to the stomach and upon careful examination the mucosa of the antrum body and cardia as well as the fundus appeared normal. Procedure was being performed and biopsies were done patient threw up and subsequently became hypoxic there was clearly evidence of witnessed aspiration anesthesia intubated the patient, procedure was terminated, and the patient was transferred to the ICU, this consult was initiated. Patient is now on assist- control rate of 20 tidal volume 500 FiO2 70% PEEP of 10 ABG is pending, earlier ABG showed profound hypoxia patient is on propofol at 50 mcg/kg/min, next ABG is pending. Chest x-ray showed chronic changes without evidence of acute pulmonary disease. 12/27/2023 Patient is seen and evaluated with family at bedside; remains in the ICU intubated and mechanically ventilated. - ABG showed a pO2 of 99 pCO2 31 pH of 7.44. -- Remains on Eraxis daptomycin and Zosyn patient is intermittently requiring Dilaudid, Ativan does not seem to help his agitation and restlessness. -- Continues to have leakage around the jejunostomy tube, and patient is undergoing the J-tube exchange today. Family is at bedside, seems to be quite anxious about his overall condition, and I explained to the that we are doing the best we can considering his critical illness situation and critical illness polyneuropathy. Patient is profoundly weak, and weaning the patient from mechanical ventilation is almost impossible. At least not at this point yet WBC count is 10.9 hemoglobin is 8.1 basic metabolic profile is normal BUN is 46 creatinine 1.90 patient has been off hemodialysis since the . Chest x- ray continues to show stable findings with right upper lobe opacity and right lower lobe opacity and possibly a small right-sided pleural effusion ----Continue ventilatory support, now on IMV mode rate of 16 with pressure support of 14 Continue Precedex and use Dilaudid 0.5 mg every 2-3 hours as needed. Nutritional support patient is now on TPN, Possible J-tube changed today for J- tube malfunction Continue antibiotics including daptomycin and Zosyn, Eraxis was added by infectious disease 12/28/2023 the patient is seen and evaluated in room at bedside; continues to be afebrile, the patient is on the ventilator through the trach FiO2 is currently stable at 30% no significant pleural effusion clinically patient on requiring any pressor support still having drainage around his jejunostomy tube patient dialysis catheter has been discontinued. Patient white count normalized to 7.6, creatinine is 1.51 patient with pneumonia with a sputum showing Citrobacter and Pseudomonas aeruginosa, the patient sputum repeat is still growing Citrobacter and Pseudomonas sensitive to the Pseudomonas is pending continue with Zosyn -patient did have a positive blood culture with staph epi that was oxacillin resistant as the patient did have a PICC line and the dialysis catheter he is on daptomycin repeat blood culture currently growing oxacillin sensitive staph epi, the patient dialysis catheter has been discontinued Has been sent for the culture -patient also have significant excoriation around his jejunostomy tube site which is still leaking Eraxis was added which will be continued as the patient fever pattern has improved and the patient white count has normalized once again discussed with the nursing staff to apply Triad cream which was discussed yesterday but not applied and monitor clinical course closely 12/29/2023 Patient is seen and evaluated with family members at bedside; remains intubated and mechanically ventilated -- ABG showed a pO2 of 105 pCO2 31 pH of 7.45. Remains on Precedex; multiple antibiotics and antifungal including Eraxis daptomycin and Zosyn. -- chest x-ray is showing improvement in his right upper lobe airspace disease/pulmonary abscess. Right lower lobe seems about the same with chronic opacity and possibly some small right-sided pleural effusion. --Family is at bedside, patient is arousable but does not follow any instructions. Gets extremely restless and agitated easily hence patient is receiving Dilaudid which seems to be working much better for this patient than benzodiazepines --possibly transfer the patient to a select care specialty. 12/30/2023 Evaluated in follow-up in the intensive care unit. He remains on the mechanical ventilator. Status post tracheostomy. There has been a decrease in the amount of leakage around the J-tube site he continues on a gravity flow. TPN is infusing tube feedings remain on hold at this time. No bowel movement reported for the last 5 days. X-ray today reveals extensive pleural parenchymal opacities throughout the right with at least a moderate pleural effusion. Mild patchy densities left mid and lower lung are also similar. Blood work reveals a white blood cell count 11.5, hemoglobin 8.1, platelet count of 78, sodium 142, potassium 4.2, BUN of 42, creatinine of 1.22, Phos of 2.3, magnesium 1.9. Patient continues on IV anidulafungin IV Zerbaxa IV daptomycin. Patient is currently sedated with propofol and also Precedex which is currently on hold at this time. December 31, 2023: ICU. Patient continues to do poorly. On propofol 35 mics. Also getting IV Dilaudid and IV Ativan.. Telemetry shows sinus rhythm. J-tube feeding has been discontinued. Significant output through the Abarca bag and around the G-tube site. Patient also putting out through the RAYA drain on the right side. Getting TPN and lipids. Patient is antimicrobial include iv aniedulefungin, IV ceftolozane/tazobactam, IV daptomycin Advance care planning [October 31, 2023] I met with patient's at the bedside. Went through in detail with patient is overall very poor clinical status. Chances of any meaningful recovery next to minimal. I also did mention that patient in my opinion was not stable to go to chronic ventilator setting. I suggested comfort care/hospice. I did not feel and why all honesty that patient is benefiting any further from the treatment we are giving him in fact causing probably more suffering. I also spoke to patient's daughter outside in the waiting room. Total time spent about 50 minutes with over 30 minutes of discussion. Later I called Dr. Luther JIMENEZ the bindery machine setter after he received a text that family was expressing that some physician expressed he was doing better and giving hope. I spoke to nurse Lemos in the evening and she and Dr. JIMENEZ did go and talk to patient's family at the bedside later. January 01, 2024: ICU. FiO2 30 and a PEEP of 5. Continues to have increased drainage at the G-tube site. Wound VAC in place over the incision. RAYA drain continues to put out excretions. Good urine output. Drips include IV propofol at 20 mics, also getting IV Ativan and Dilaudid. Patient also keeping getting TPN lipids. Spoke to the patient's at the bedside. No further questions. I did speak to Dr. Irby from general surgery. Hence it is both our impression again that changing the tube will not make any difference to the bigger picture. And probably futile. Dr. Irby will be speaking to the family today. David from social media specialist did ask about of family meeting. I did reiterate that I spoken at length to the a few times and also the daughter. Dr. Jimenez also spoke to the and Dr. Irby will be speaking with the today. Prognosis remains to be very poor. I did tell the in my opinion probably the patient is not r a candidate for long-term facility. Will bindery machine setter Dr. Jimenez determine if the patient is a candidate for long-term chronic ventilator facility. January 02, 2024: ICU. FiO2 30 PEEP of 5. Telemetry sinus rhythm. Drips include propofol at 20 mics. Patient getting TPN lipids. Receiving 1 unit of packed red blood cell. Patient was having a breakdown around the tracheostomy stoma site. With a cuff leak. G-tube site is continues to have increasing output. Wound VAC in place. RAYA drains also having increasing output. Patient sister and daughter from [place] from out of town. Earlier they spoke at length with Dr. alford from general surgery. Prognosis remains poor. January 03, 2024: ICU. FiO2 30 PEEP of 5. On propofol. 50 mics. Getting TPN lipids. Sinus rhythm. Wound VAC in place. Drainage around the j-tube site. RAYA drain continues to drain. Patient somewhat sedated. at the bedside. Later social media specialist David inform me that the surgical team Dr. Irby has suggested possible you have [facility], to which family is trying to obtain transferred to. Per Dr. Jimenez note patient has been decline by long-term care twice. Prognosis remains poor. at the bedside. Had no questions. Brother Nathan is present. January 04, 2024: ICU. FiO2 30 PEEP of 5. Propofol was held this morning. Getting TPN lipids. Sinus rhythm. Wound VAC remains in place. Continues to have drainage around the J-tube. RAYA drain continues to have output. at the bedside. She had no questions. Antibiotics in place. January 05, 2024: ICU. FiO2 30 PEEP of 5. Audibly sounding congested. Getting TPN lipids. Sinus rhythm. Wound VAC in place. Drainage around J-tube site. RAYA output continues. No family at bedside. Getting antibiotics. Lethargic January 06, 2024: ICU. FiO2 30 PEEP of 5. Patient is been off propofol since yesterday. Does move his head about. Try to open his eyes sometimes. Sinus rhythm. Blood pressure is running high yesterday. Started on Cleviprex. Hydralazine is being added. Continue to get TPN lipids. J-tube site remains excoriated. Wound VAC in place. RAYA output about 40 to 50 cc is a 12-hour shift. Patient elder daughter at the bedside. Eraxis was discontinued on January 02. Daptomycin is being discontinued by ID. Continue ceftolo'szone. CT abdomen pelvis done today: 3.1 cm organized fluid collection within the rectovesicular space concerning for abscess. No change in right upper lung 4.9 cm fluid collection with a fluid level. For possible pulmonary abscess. Moderate size right lung base multiloculated hydropneumothorax possibly abscess. Additional areas of air bronchograms. January 07, 2024: ICU. FiO2 30 PEEP of 5. Patient was taken down for pigtail drainage of the right lung abscess. About 200 cc of pus was obtained. Nurse informed me when they told him about for the procedure a lot of pus gushed out from the tracheostomy site. Dr. Love at the bedside did a bronchoscopy. Some pus was aspirated. No obvious fistula was noted. Patient is being back on Cleviprex drip. TPN lipids. January 08, 2024: ICU. Patient was having severe bouts of coughing. Unable to maintain ventilation. Patient was put on Nimbex drip and propofol drip. TPN lipids continue. Has a right chest wall pigtail catheter 90 cc output in 12- hour shift. Drainage from around the J-tube site. RAYA drain continues Ahmet to have an output. Abdominal wound is high since with the wound VAC in place. Patient sedated. January 09, 2024: ICU. Patient is off propofol and Cleviprex. Does open eyes. RAYA drain. About 40 cc last 24 hours. J-tube site continues to have increased output. Requiring dressing change every so often. Wound VAC in place. Patient getting Dilaudid and Ativan. Telemetry shows sinus rhythm. 40 cc out of the pigtail drainage. Patient started on ciprofloxacin and tobramycin. Remains on TPN and lipids. Patient's eldest daughter and at the bedside. No new questions. January 10, 2024: ICU. Overnight patient had become asynchronous. Had to be put on Precedex drip. Hemoglobin dropped down to 6.6. Monitor blood ordered. RAYA output about 100 cc last 24 hours. Wound VAC remains in place. TPN lipid continues. Patient also has a leak in the right pigtail catheter. Sinus rhythm. Continues to have increased secretion at the G-tube site. Ventilator FiO2 30 and a PEEP of 5. at the bedside. Had no further questions. January 11, 2024: ICU. Patient remains on IV Precedex. TPN.'s RAYA output over 30 cc last 24 hours. Wound VAC remains in place. Sinus rhythm. FiO2 30 PEEP of 5. Pigtail with very little output. Spoke to Dr. Love who only spoke to the patient's at length. Gnosis poor. When I walked in patient's 2 daughters and the present. is very tearful crying hugging the patient. The daughter had no further questions January 12, 2024 Ahmet: ICU. Continues on IV Precedex. Getting TPN lipids. Wound VAC in place. Sensitive. FiO2 30 and a PEEP of 5. Patient's at the bedside. Had no questions. January 13, 2024: ICU. FiO2 30 PEEP of 5. Remains on Precedex 0.8 mg. Eyes open. Sometimes does track with head. Not moving limbs. Some decrease in output from the G-tube site. Wound VAC putting out about 100 cc every 12 hours. RAYA drain about 100 cc every [address] Russ met with the family earlier today. Patient's been made DNR. Telemetry sinus rhythm. Patient's and daughter at bedside. They have no questions January 14, 2024: ICU. FiO2 30. PEEP of 5. Patient is has eyes open and tracking. Urine output about 100 cc an hour. NG site output looks like gastric contents. RAYA site about 50 cc in the last 12 hours. Telemetry sinus rhythm. and daughter have asked for hospice consultation for informational visit. They want to use [facility]. I sat with them and the nurse and a full expression of the hospice involved involved. Several questions answered. Daughter does express that she would like to take the patient home. The other sibling will be coming on from [place] on Saturday. They want to hold on at least until then. January 15, 2024: ICU. FiO2 30 and a PEEP of 5. Getting CPAP today. Asynchronous better. J-tube site continues to have increase secretions. Sinus rhythm. Awake. Does move his head possibly to command. Remains on Precedex. Getting Dilaudid. Fair urine output. Has a air leak in the pigtail. Minimal output through the chest tube. RAYA drain continues to have an output. at the bedside. January 16, 2024: ICU. On the ventilator FiO2 30 and a PEEP of 5. Pressure support mode. Wound VAC remains in place. J-tube site continues to have output. RAYA drain putting out output. Remains on pressors Precedex and getting Dilaudid. Antibiotics per ID. Patient being planned to go home tomorrow with home hospice. at the bedside. Had no further questions. Being followed by social media specialist David and home hospice team from [facility] The plan for tomorrow currently is as follows: -Hospice arranging for transport with portable ventilator, to home with family -Antibiotics as discussed with ID will be discontinued -Wound VAC to be removed prior to discharge per surgery -RAYA drain to remain in place with dressing changes at the J-tube site. Dressing changes at the incision site per surgery. -TPN lipids will be discontinued prior to discharge -Patient to be taken off Precedex by r bindery machine setter January 21, 2024: ICU. Ventilator FiO2 30 and a PEEP of 5. Precedex drip. Sinus rhythm. Does wake up and follow commands. Weak in the limbs. Very little output through the RAYA drain. Wound VAC in place. Requiring Dilaudid for pain control close to every 2 hours. Over the weekend patient and family dec ided not for hospice. Patient is now full code instructions. Looking at long- term placement. Patient on tobramycin and ciprofloxacin and Diflucan per ID. Patient and daughter at the bedside.. Physical therapy in the room for passive movements. Family being educated. Since yesterday patient has been on pressure support./CPAP. Getting TPN lipids. January 22, 2024: ICU. Patient was on CPAP this morning. Plan was to take him to trach only this afternoon. Getting IV Precedex. Awake. Moves his head to command. Was able to move his right arm. Wound VAC remains in place. Right c hest tube/pigtail catheter in place. Some air leak. Minimal output from the right RAYA drain. Secretions persist through the left J-tube site. at the bedside. Spoke to the social media specialist David. Looking into long-term placement. 01/23/24 Patient is evaluated in the ICU at the bedside. Feels anxious today, precedex is being weaned. He is awake alert. He is edematous. Abdominal wound vac in place. Right chest tube/pigtail in place. 55 ML of drainage overnight. Right sided RAYA drain. J tube in place. On TPN. He is pending approval for [facility] vs. [facility]. Blood work today reveals a sodium level of 131. Continues on IV Ciprofloxacin/ IV fluconazole. 01/24/2024 Patient remains in the intensive care unit as remains at the bedside. He was weaned off the Precedex today did receive a dose of Ativan this morning however his mood has much improved. Abdominal wound VAC in place with evidence of purulent drainage in the canister. He has had 15 mL of drainage overnight from the right sided chest tube. J-tube remains in place. He continues on TPN. He continues on IV ciprofloxacin and IV fluconazole with plans for repeat abdominal pelvis CT today by infectious disease and consider discontinuation of antibiotics afterwards. Sodium level today is 130. Still pending approval for discharge to LTAC versus [facility]. 01/25/2024 Patient remains in the intensive care unit he continues off IV Precedex at this time. Continues with TPN. Repeat chest abdomen pelvis CT completed yesterday which shows a decrease seen in the hydropneumothorax within the right lung base with drainage catheter there is no change in the bibasilar infiltrates and small left effusion. There is interval development of a dilated small bowel loop in the mid abdomen consistent with either a focal ileus or partial obstruction. There are findings suggestive of acute diverticulitis of the sigmoid colon with a small pericolic phlegmon abscess however is decreasing in the interval from compared in the prior study from 3.4 cm to 3 cm. There is moderate anasarca and the peritoneal dialysis catheter and small bowel drainage tube unchanged in position. Blood work today reveals a white blood cell count of 20.1, hemoglobin 8.3, sodium 131, BUN of 21, creatinine 0.66, magnesium 1.7. He is on IV Cipro. IV Flagyl was added today by infectious disease. Was made a full code at request of family. 01/26/2024 Patient remains in the ICU. More awake alert and oriented today. He continues on the trach collar. Sounds less congested. Continues on IV cipro and IV flagyl. White blood cell count better today at 16.3. Hgb 7.2. Sodium 130, potassium 3.4. Continues on TPN. 01/27/2024 Patient is seen in follow-up continues to be in the ICU with multiple consultations following. Family at the bedside and patient is more awake although continues with bronchial congestion and frequent suctioning with the trach collar. Patient remains off Precedex. Patient continues on antibiotics for possible lung abscess that was positive for Pseudomonas with a persistent air leak. Minimal output of the pigtail catheter noted. FiO2 is 40% trach collar maintained on 10 L oxygen. Patient continues on TPN and will adjust accordingly per dietary and pharmacy. Overall prognosis remains extremely poor. Patient remains full code. Per nursing staff patient was denied from [facility] with case management/social work following. 01/28/2024 Patient is eval in follow-up today in the intensive care unit. He had an axillary temp 101.6 for this reason a septic protocol was done including urinalysis blood cultures and viral panel. He remains on IV cipro and IV flagyl. Airleak to the chest tube remains to suction. He continues on a trach collar 40% FiO2 with oxygen at 8 L. He continues on TPN and lipids adjustments per dietary and pharmacy. We are currently not using the J-tube for feedings at this time. He has a wound VAC in place to the midline abdominal incision. He is more awake alert and oriented and less agitated. Sodium level today is 133. Renal function is within normal limits. 01/29/2024 Patient is evaluated today in the ICU with family at the bedside. He continues to have elevated temps. He is more lethargic. White count 20.2 today. Septic work up started. Repeat urinalysis not overly suggesting of infection. Viral panel negative. Chest xray today reveals patchy and confluent bilateral airspace disease similar to slightly worsened. Right-sided pleural catheter demonstrated. There is similar small right pleural effusion. He was started on IV vancomyin, IV meropenem and IV metronidazole. The cipro has been discontinued. Lactic acid 2.3. Sodium 134, renal function normal. Hgb 7.6. Tube feedings remain on hold. Not safe to restart and he continues on TPN/Lipids. 01/30/2024 Patient evaluated today in follow up. Remains in the ICU. Underwent bronchoscopy and repair of a tear in the tracheostomy cuff. Deep sputum culture pending. Patient remains on the mechanical ventilator with ABGs today showing pH level of 0.33, pCO2 of 59, pO2 of 152, HCO3 of 41, total CO2 of 33, hemoglobin 6.6. Lactic acid has normalized. White blood cell count 19.3 today hemoglobin 7.3. Patient is continued on IV propofol as well as backs. Continues on antibiotics in the form of IV vancomycin, IV meropenem, IV metronidazole. Continues on TPN lipids. Chest xray improved throughout both lung ramirez with mild improved aeration at the right lung base. No pneumothorax present. Right-sided chest tube remains in place to suction. 01/31/2024 Patient evaluated today in follow up in the intensive care unit. Remains on the mechanical ventilator, 50% FiO2. Family at the bedside and hoping for extubation today. Continues on TPN/Lipids. Labs today reveal white blood cell count 15.4, hgb 7.0, platelet count 169. Sodium 136, potassium 5.4. BUN 29, creatinine 0.61. Chest xray today reveals ongoing multifocal patchy and confluent airspace disease. A small to moderate right pleural effusion may be slightly increased. Sputum culture from bronchoscopy continues to show pseudomonas. Chest tube remains in place. on IV vancomycin and IV meropenem. 02/01/2024 Evaluated today in follow-up in the intensive care unit. Patient remains on mechanical ventilator with a 50% FiO2. His repeat sputum cultures from the bronchoscopy continue to show Pseudomonas. He continues on IV vancomycin and IV meropenem infectious diseases following closely. He continues with a wound VAC to his midline abdominal incision. Per surgery they feel that the fistula from his J-tube is mature he is currently off of tube feedings at this time though continues on TPN lipids. White blood cell count today is 15.3, hemoglobin 7.2, sodium 140, potassium 5.0, BUN of 33, creatinine 0.59. 2.0 mL of drainage over the last couple days. His chest x-ray today reveals no change in the marked diffuse cardiopulmonary process including scattered interstitial and partially consolidative infiltrates and bilateral pleural effusions which remain unchanged as compared to prior. 02/02/2024 Patient is evaluated today in follow-up in the intensive care unit. Patient remains in the mechanical ventilator with an FiO2 of 50%. His repeat sputum cultures are showing Pseudomonas now with drug resistance Pseudomonas is susceptible to amikacin and tobramycin with intermediate susceptibility to Zosyn and gentamicin. Antibiotics have been adjusted to Tobramycin and IV zosyn. February 03, 2024: I resumed care of the patient today. ICU. I was away last week. Patient had a tracheostomy leak. Underwent a bronchoscopy. And went back on the ventilator. Currently FiO2 5040% and a PEEP of 5. Drips include Precedex. Also getting TPN lipids. Patient getting Dilaudid 0.5 mg every 3 hours. And also Toradol. Good urine output. Right-sided RAYA drain was removed on January 27. Chest tube drain has minimal output. Patient continues to leak from the left-sided G-tube site. Patient's abdomen is rather distended. Surgery will be evaluating the patient today. Patient's and daughter at the bedside. That questions regarding the abdomen will defer the same to surgical team. Patient is extremely high risk for any surgery. Spoke to David the manager rn case. As of now LTAC had declined the patient. Patient also has a stage III on the buttock. Patient has a Shiley #8 tracheostomy tube. Checks x- ray today shows extensive interstitial and patchy bilateral infiltrates. New prominent air density below the diaphragm no peritoneum was to be excluded. Patient's bronchoscopy results show multidrug-resistant Pseudomonas. Patient has been treated with Zosyn and tobramycin-currently getting both.. Patient is awake. Attempts to talk. Able to follow commands. Active Medications Albuterol/Ipratropium (Ipratropium-Albuterol 3 Ml Neb) 3 ml INHALATION RT-QID NIRMAL Last Admin: 02/03/24 12:52 Dose: 3 ml Albuterol/Ipratropium (Ipratropium-Albuterol 3 Ml Neb) 3 ml INHALATION RT-Q2H PRN PRN Reason: Shortness Of Breath Or Wheezing Last Admin: 02/02/24 04:31 Dose: 3 ml Benzocaine (Benzocaine [place] 1 Can) 1 spray MUCOUS MEM TID PRN; Protocol PRN Reason: Mouth Irritation Bisacodyl (Bisacodyl 10 Mg Supp) 10 mg RECTAL DAILY [facility] Last Admin: 02/03/24 08:18 Dose: Not Given Dextrose/Water (Dextrose 50% Syringe 50 Ml) 25 ml IVP PER PROTOCOL PRN; Protocol PRN Reason: Hypoglycemia Last Admin: 01/03/24 06:18 Dose: 25 ml Dextrose/Water (Dextrose 50% Syringe 50 Ml) 50 ml IVP PER PROTOCOL PRN; Protocol PRN Reason: Hypoglycemia Last Admin: 12/25/23 18:03 Dose: 50 ml Hydralazine HCl (Hydralazine Hcl 20 Mg/Ml 1 Ml Vial) 10 mg IVP Q6HR PRN PRN Reason: SBP >140 Last Admin: 01/07/24 23:28 Dose: 10 mg Hydromorphone HCl (Hydromorphone 0.5 Mg/0.5 Ml Syringe) 0.5 mg IVP Q3HR PRN PRN Reason: Pain Last Admin: 02/03/24 12:50 Dose: 0.5 mg Fat Emulsion Intravenous 250 (ml/ IV Solution) 250 mls @ 21 mls/hr IV TuThSa@0900 [facility] Last Admin: 02/01/24 08:30 Dose: 21 mls/hr Dexmedetomidine HCl 400 mcg/ (IV Solution) 100 mls @ 5.065 mls/hr IV .[id number] [facility]; Protocol Last Admin: 02/03/24 11:22 Dose: 0.7 mcg/kg/hr, 17.728 mls/hr Piperacillin Sod/Tazobactam (Sod 3.375 gm/ Sodium Chloride) 100 mls @ 25 mls/hr IVPB Q8HR [facility]; Protocol Last Admin: 02/03/24 08:34 Dose: 25 mls/hr Parenteral Vitamin Supplement 10 ml/ Zinc/Copper/Manganese/Selenium 1 ml/ Sodium Acetate 44 meq/ Magnesium Sulfate 1.25 gm/ Potassium Phosphate 3 mmol/ Sodium Chloride 60 meq/Calcium Gluconate 1 gm/ Amino Acids/Dextrose 1,061.5 mls @ 90 mls/hr IV .BY DURATION [facility] Stop: 02/03/24 15:59 Last Admin: 02/03/24 04:10 Dose: 90 mls/hr Sodium Acetate 44 meq/Magnesium Sulfate 1.25 gm/Potassium Phosphate 3 mmol/Sodium Chloride 60 meq/Calcium Gluconate 1 gm/ Amino Acids/Dextrose 1,050.5 mls @ 90 mls/hr IV .BY DURATION [facility] Stop: 02/03/24 15:59 Last Admin: 02/02/24 16:30 Dose: 90 mls/hr Parenteral Vitamin Supplement 10 ml/ Zinc/Copper/Manganese/Selenium 1 ml/ Sodium Acetate 44 meq/ Magnesium Sulfate 1.25 gm/ Potassium Phosphate 3 mmol/ Sodium Chloride 60 meq/Calcium Gluconate 1 gm/ Amino Acids/Dextrose 1,061.5 mls @ 85 mls/hr IV .BY DURATION [facility] Sodium Acetate 44 meq/Magnesium Sulfate 1.25 gm/Potassium Phosphate 3 mmol/Sodium Chloride 60 meq/Calcium Gluconate 1 gm/ Amino Acids/Dextrose 1,050.5 mls @ 85 mls/hr IV .BY DURATION [facility] Insulin Aspart (Insulin Aspart (Novolog) 100 Unit/Ml Vial) 0 unit SQ 0000,0600,1200,1800 [facility]; Protocol Last Admin: 02/03/24 12:16 Dose: 2 unit Ketorolac Tromethamine (Ketorolac 15 Mg/Ml 1 Ml Vial) 15 mg IVP Q6HR PRN PRN Reason: Pain Stop: 02/06/24 17:52 Last Admin: 02/03/24 10:34 Dose: 15 mg Lidocaine HCl (Lidocaine 2% (Pf) 20 Mg/Ml 5 Ml Vial) 60 mg INHALATION Q6HR PRN PRN Reason: Dyspnea Last Admin: 02/01/24 00:29 Dose: 60 mg Lorazepam (Lorazepam 2 Mg/Ml Inj) 1 mg IV Q6HR PRN PRN Reason: Anxiety Last Admin: 01/28/24 23:58 Dose: 1 mg Miscellaneous Information (Phosphorus Replacement Protoco 1 Each Misc) 1 each MISCELLANE DAILY PRN; Protocol PRN Reason: Per Protocol Miscellaneous Information (Magnesium Replacement Protocol 1 Each Misc) 1 each MISCELLANE DAILY PRN; Protocol PRN Reason: Per Protocol Miscellaneous Information (Potassium Replacement Protocol 1 Each Misc) 1 each MISCELLANE DAILY PRN; Protocol PRN Reason: Per Protocol Miscellaneous Information (Tobramycin Per Pharmacy) 1 each MISCELLANE DIRECTED [facility]; Protocol Last Admin: 02/02/24 18:25 Dose: Not Given Multi-Ingred Cream/Lotion/Oil/Oint (Hydrophilic Cream 180 Gm Tube) 1 applic TOPICAL BID NIRMAL; Protocol Last Admin: 02/03/24 08:34 Dose: 1 applic Multi-Ingredient Ointment (Zinc Oxide 20% Oint 28.4 Gm Tube) 1 applic TOPICAL BID PRN; Protocol PRN Reason: Skin Irritation Naloxone HCl (Naloxone 0.4 Mg/Ml 1 Ml Vial) 0.2 mg IV Q2M PRN PRN Reason: Opioid Reversal Ondansetron HCl (Ondansetron 4 Mg/2 Ml Vial) 4 mg IVP Q6HR PRN PRN Reason: Nausea And Vomiting Last Admin: 01/23/24 17:28 Dose: 4 mg Pantoprazole Sodium (Pantoprazole 40 Mg/10 Ml Vial) 40 mg IVP BID NIRMAL Last Admin: 02/03/24 08:33 Dose: 40 mg Petrolatum (Zinc Oxide Paste (Z-Guard) 1 Applic) 1 applic TOPICAL BID NIRMAL; Protocol Last Admin: 02/03/24 08:34 Dose: 1 applic Past medical history to include: GERD Social history: . No smoking. Physical examination: VITAL SIGNS: Tmax 100.9, currently 98.9, 88, 29, 146 x 111, 98% on the ventilator/40% GENERAL: Eyes open, follows commands moving his head EYES: Pupils equal. , tracking Conjunctiva edouard l. HEENT: External appearance of nose and ears normal, tracheostomy-. NECK: JVD unable to assess; masses not palpable. HEART: First and second heart sounds are normal; edema, present LUNGS: Respiratory rate increased, decreased breath sounds right chest wall pigtail catheter ABDOMEN: Soft, some tenderness. Liver spleen not palpable, no masses palpable..jejunostomy tube-dressing in place, . RAYA drain. Incision with st itches with - wound VAC PSYCH: Unable to assess NEURO: Eyes open. Attempts to talk. Following commands. Able to raise his right arm up. Some movement in both the lower extremity. Not really able to move left arm. INVESTIGATIONS, reviewed in the clinical context: Sputum [January 21] Pseudomonas aeruginosa-multiple drug-resistant February 02: White count 16.5 hemoglobin 8.6 platelets 385 sodium 142 potassium 3.1 BUN 37 creatinine 0.65 January 21: White count 14.9 hemoglobin 7.9 platelets 399 potassium 3[address] abdomen pelvis [January 05]: 3.1 cm organized fluid collection within the rectovesicular space concerning for abscess. No change in right upper lung 4.9 cm fluid collection with a fluid level. For possible pulmonary abscess. Moderate size right lung base multiloculated hydropneumothorax possibly abscess. Additional areas of air bronchograms. January 05: White count 10.6 hemoglobin 7.6 platelets 111 sodium 137 potassium 3.5 BUN 44 creatinine 0.95 January 03: White count 13.4 hemoglobin 8.1 platelets 95 potassium 5.2 creatinine 1.1 albumin 1.8 Sputum culture [December 24] Citrobacter freundii, Pseudomonas aeruginosa Blood culture [December 24] Staphylococcus pettenkoferi December 24: White count 1.5 hemoglobin 8.2 platelets 106 potassium 3.8 BUN [address] chest abdomen without contrast [December 16] right upper lung cavitary lesion with air-fluid level in the posterior aspect and a larger cavitary lesion possibly within the lung parenchyma itself. Extending down towards the diaphragm additional airspace opacities in the left lung base. December 09: White count 26.1 hemoglobin 8.6 platelets 154 potassium 4.1 BUN 86 creatinine 3.31. Hemoglobin this morning was 6.6 prior to transfusion EEG-evidence of generalized cerebral dysfunction and sporadic intermittent higher amplitude sharply contoured waves mainly bifrontal. Showing cortical irritability. 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 Serosal fibrous adhesions. Viable margins. Sputum culture: [November 25]: Citrobacter freundii. Pseudomonas aeruginosa November 20: White count 14.4 hemoglobin 8.8 platelets 229 potassium 4.1 BUN [address] scan abdomen [November 19] possible small bowel obstruction Stool: C. difficile negative November 15: WBC 13 hemoglobin 7.7 platelets 248 potassium 4.3 creatinine 0.87 2D echo: EF 55 to 60%. Kidneys bladder: Unremarkable November 13: White count 12 hemoglobin 6.9 platelets 276 potassium 4.4 creatinine 1.21 magnesium 1.8 iron 6 TIBC 365% saturation 1.64 transferrin 261 ferritin 34.6 B12 569 folate 4.4 November 11: Creatinine 0.86 EGD: Large amount of retained solid liquid food noted in the stomach. Large superficial gastric antral ulceration involving most of the antrum extending into the pylorus causing pyloric stenosis. Biopsies were obtained. Chest x-ray film personally reviewed by me-scattered infiltrates Assessment plan: -Aspiration and gram-negative bacterial pneumonia a bilateral initially from retained gastric contents mostly food and liquids, causing acute hypoxic respiratory failure: On presentation: Subsequent bacterial pneumonia and lung abscess sputum culture November 25: Citrobacter freundii, Pseudomonas aeruginosa. December 13: Klebsiella oxytoca, Pseudomonas aeruginosa. December 29: Multidrug-resistant Pseudomonas aeruginosa IV meropenem-, IV Zosyn.IV ceftolozane/tazobactam, IV daptomycin, tobramycin- all discontinued Currently getting IV Zosyn and tobramycin -New abdominal distention. Some possible free air in the right diaphragm. Await input from surgery. Extremely high risk for any surgery. Discussed with family at the bedside -Intermittent asynchronous with the ventilator. On Precedex drip -January 28 patient underwent tracheostomy tube exchange and bronchoscopy with lavage by Dr. Love for a leak around the tracheostomy tube. Patient is a #8 Shiley tracheostomy tube. An air leak was resolved Previously had a leak. Currently resolved -Pain, multifactorial Getting Dilaudid every 3 hours with Toradol -Sepsis with septicemia from above Patient received multiple antibiotics -Right l lung abscess, pigtail catheter placed January 07, 2024. Initially about 200 cc of pus obtained. During the procedure large amount of pus poured out of the tracheostomy site when patient was rolled on the left side. Status post bronchoscopy with some lavage on 01/07/2024 - lung abscess larger 1 on the right side-patient cultures are growing Pseudomonas and Klebsiella oxytoca: , Received other antibiotics. Currently on Zosyn and tobramycin -Acute pulmonary edema and fluid overload from hypoalbuminemic state and fluids from IV.:: Has been getting Lasix and dialysis: Both held -Altered mentation. Possibly encephalopathy. Could be delirium.: Improvement CT brain [December 06] nothing acute Neurology following EEG-evidence of generalized cerebral dysfunction and sporadic intermittent higher amplitude sharply contoured waves mainly bifrontal. Showing cortical irritability. Keppra was started on December 07 -Critical care poly- Pedro neuropathy: Slow to respond PT OT -Gallstones, asymptomatic -Small l bowel perforation at site of jejunostomy tube tip with balloon..: Portion of small bowel resected. On November 24. New J-tube was placed.- drainage to gravity:-Now discontinued December 19: J-tube blocked. J-tube replaced on December 20 over wire December 21: Leaking around the J-tube site. Feeding held December 23: J feeding was started yesterday evening but again started leaking increasingly around the J-tube site-feeding held again December 24: J-tube feeding has been held. Patient is currently having increased drainage from the J-tube site -Acute kidney injury. Possible ATN from hypotensive shock: Resolved Renal ultrasound unremarkable. Started on renal replacement therapy on November 28. Last hemodialysis on December 17. Being followed by an nephrology. Good urine output. -Nutrition Jejunostomy tube placed November [address] Ewing Received TPN-this was discontinued. TPN lipids restarted on December 24 -Midline abdominal incision wound dehiscence Wound VAC in place -Acute recurrent atrial fibrillation-converted to sinus rhythm Received IV amiodarone. Cardiology following -Acute hypoxic respiratory failure from aspiration pneumonia, status post ventilator assisted: Reintubated November 25. FiO2 35 PEEP of 5 Tracheostomy tube-by Dr. Zepeda on December 09 Tracheostomy tube changed to #8 Shiley on January [address] Love -Septic shock, recovered -Hypertension, recurrent Had received Cleviprex. Hydralazine added -Intermittent hypotension: Corrected Intermittent use of Levophed. 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 Also anemia of blood draw. Iron deficiency anemia Received total of 8 units of blood IV iron. -Severe thrombocytopenia. Would consider coagulation disorder secondary to infection., In the setting of underlying lymphoma.: Fluctuating with infection: Improved Hematology following. 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 difficile ruled out. -Large superficial gastric antral ulceration involving the gastric antrum extending into the pylorus with gastric outlet obstruction. 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 -DNR made on January 12. Now full code with instructions on January 17. Patient is full code now Past Medical History Past Medical History: GERD/Reflux History of Any Multi-Drug Resistant Organisms: None Reported Past Surgical History: Heart Catheterization Additional Past Surgical History / Comment(s): colonsocopy,spinal injection, Past Anesthesia/Blood Transfusion Reactions: No Reported Reaction Past Psychological History: No Psychological Hx Reported Smoking Status: Never smoker Past Alcohol Use History: None Reported Past Drug Use History: None Reported
--- NOTE | 2024-02-03 13:46 | P.PN ---
Subjective Progress Note Date: 02/03/24 Principal diagnosis: Acute hypoxic respiratory failure requiring intubation mechanical ventilation secondary to aspiration. This is a 73-year-old white male with history of chronic abdominal pain for the last 8 months has been treated with Protonix 40 mg daily for the last 3 months with no improvement. Patient had a 22 pound weight loss in the last [address] of the abdomen and pelvis 3 weeks ago showed thickening of the antral wall with pathological adenopathy posterior to the stomach suspicious of neoplasm. Today the patient underwent elective upper endoscopy to evaluate further, patient received IV sedation by anesthesia endoscope was inserted into the mouth, esop hagus was intubated without any difficulty there was evidence of large amount of liquid and solid food noted in the stomach suggestive of gastric outlet obstruction. Scope could not be advanced through the pylorus, however in the prepyloric area there was a large superficial ulceration identified with multiple biopsies were done from this area. The body cardia and fundus could not adequately visualize because of large amount of retained food in the stomach. Scope was withdrawn back to the stomach and upon careful examination the mucosa of the antrum body and cardia as well as the fundus appeared normal. Procedure was being performed and biopsies were done patient threw up and subsequently became hypoxic there was clearly evidence of witnessed aspiration anesthesia intubated the patient, procedure was terminated, and the patient was transferred to the ICU, this consult was initiated. Patient is now on assist- control rate of 20 tidal volume 500 FiO2 70% PEEP of 10 ABG is pending, earlier ABG showed profound hypoxia patient is on propofol at 50 mcg/kg/min, next ABG is pending. Chest x-ray showed chronic changes without evidence of acute pulmonary disease. 01/10/2024, the patient is on low-dose Precedex. Currently comfortable, sensitive to mechanical ventilator. Output from the pigtail has dropped and the patient continues to have a positive airleak. The chest x-ray shows bilateral consolidation worse on the right and there is a small right apical pneumothorax. Pigtail catheter is in a good location. Blood gas showed a pH of 7.48 with a pCO2 of 35 and a pO2 of 83. He is on assist-control mode with rate of 20, tidal volume of 600, FiO2 30% with a PEEP of 5. RAYA drain output is serosanguineous. TPN is at 90 cc an hour. Fluid balance is -700 cc. The white cell count is at 15.4, hemoglobin is at 6.7 and the patient was given a unit of packed RBC and a platelet count is 188. Electrolytes show a BUN of 46 with a creatinine of 0.7, sodium of 135, potassium level of 3.3. Antibiotics has been modified to a combination of ciprofloxacin and tobramycin as the patient showed quinolone sensitive Pseudomonas in the sputum and in the drain the abscess from the right lung. On 02/01/2024, the patient is still on propofol and currently is off Nimbex. Propofol is running at 30 mcg/kg/min. He remains on assist-control mode of mechanical ventilation at rate of 28, tidal volume of 500, FiO2 50% with a PEEP of 6. Blood gases showed a pH of 7.44 with a pCO2 of 53 and pO2 of 115. Chest x-ray shows bilateral consolidation. No significant cavitation. No pneumoth orax. There is a right-sided pigtail catheter in place. No significant change in the patient has diffuse bilateral pneumonia. Bronchoscopy was done on 01/30/2024 was consistent with Pseudomonas aeruginosa. The patient remains on a combination of meropenem, vancomycin and Flagyl. He is afebrile. Hemodynamically stable. Cardiac rhythm is sinus. Continues to have leaks around his tracheostomy tube and I decided to exchange tracheostomy tube to XLT longer tracheostomy tube to prevent post leaks. The patient remains on TPN for nutritional support. Fluid balance is -2.3 L as the patient received diuretics yesterday. Continues to have edema in all 4 extremities. The white cell count is lower at 15.3 with a hemoglobin of 7.2 and a platelet count of 408. Sodium is at 140, bicarb is at 34, BUN 33 with a creatinine of 0.5. No other significant events overnight. He seems to be more arousable compared to yesterday. On 02/02/2024, the patient is on Precedex running at 1.1 mcg/kg/min. He is a bit restless. Awake and tries to talk while even being on the mechanical ventilator. He remains on assist-control mode of mechanical ventilation. He is on volume-cycled rate of 20, tidal volume of 500, FiO2 of 50% with a PEEP of 6. Blood gas showed pH of 7.38 with a pCO2 of 61 and pO2 115. Chest x-ray shows multifocal bilateral pneumonia consolidation. No pneumothorax. Pigtail cath eter still present in the right hemithorax and there is intermittent air leak. No significant output. Fluid balance is +1.1 L over the past 24 hours. The most recent bronchioloalveolar lavage obtained from this patient showed Pseudomonas aeruginosa. Nevertheless, sensitivities have been changed and is Pseudomonas aeruginosa is multidrug-resistant, there is intermediate sensitivity to Zosyn and tobramycin and based on that the patient was started on a combination of Zosyn and tobramycin. He remains on TPN for nutritional support rate of 90 cc an hour. Blood work shows a white cell count of 11.1, hemoglobin is down to 6.4 and a platelet count is at 233. BUN 34 with a creatinine of 0.6 and a sodium levels at 141 with a potassium level is a 3.9. Vancomycin has been discontinued. Abdominal exam remains unchanged. Patient was seen today on 02/2024, remains in the ICU, remains intubated and mechanically ventilated, patient had a new tracheostomy placed because of leak from his previous tracheostomy this was done by Dr. Beckford on 02/01/24. He also had bronchoscopy and mucous plugs extraction on 01/28 and 01/04 0. Patient is on assist-control rate 20 tidal volume 620 FiO2 50% PEEP of 5 ABG showed a pO2 of 122 pCO2 44 pH of 7.49 hence FiO2 was cut down to 40%. Patient will be given a weaning trial with a pressure support of 14 and CPAP, however he only lasted few minutes and his respiratory rate was in the high 40s and tidal volume was not great. Patient had to be placed back on assist mode of mechanical ventilation shortly after. Remains on Precedex at 0.7, TPN at 90 cc/h patient received a unit of packed RBCs on 02/01 for hemoglobin of 6.4. His sputum continues to show Pseudomonas and this was from 01/29 remains on Zosyn. Continues to have right-sided pigtail catheter with ongoing air leak. Not ready to remove. No evidence of pneumothorax noted on the chest x-ray, continues to have bilateral airspace disease. WBC count is 16.5 hemoglobin 8.6, Basic meta bolic profile is normal potassium 3.1 BUN is 37 creatinine 0.65 Objective - Vital Signs Vital signs: Vital Signs Temp 98.9 F 02/03/24 12:00 Pulse 92 02/03/24 13:01 Resp 17 02/03/24 13:00 BP 151/104 02/03/24 13:00 Pulse Ox 95 02/03/24 13:00 FiO2 40 02/03/24 13:00 Intake & Output 02/02/24 02/03/24 02/03/24 18:59 06:59 18:59 Intake Total 3906.939 4362.302 860 Output Total 1410 940 910 Balance 407.214 649.302 -50 Weight 107 kg 107 kg Intake: IV 320 340 140 0.9 Normal Saline @ KVO 230 240 140 Piperacillin-Tazobactam 3 100 .375 gm In Sodium Chloride 0.9% 100 ml @ 25 mls/hr IVPB Q8HR [facility] Rx# :[id number] TPN 90 Intake, IV Titration 197.214 169.302 100 Amount Dexmedetomidine/0.9% NaCl 197.214 169.302 100 (Pmx) 400 mcg In Empty Bag 1 bag @ 0.2 MCG/KG/HR 5.065 mls/hr IV .[id number] [facility] Rx#:[id number] TPN/PPN 990 1080 620 TPN 990 1080 620 Blood Product 310 Rc As-1 Unit 310 [id number] Output: Chest Tube Drainage 0 0 0 Chest Tube Right 0 0 0 Urine 1410 940 910 Other: Voiding Method Indwelling Catheter Indwelling Catheter Indwelling Catheter # Bowel Movements 2 ABP, PAP, CO, CI - Last Documented Arterial Blood Pressure 173/76 - Exam General: Revealed 73-year-old white male on mechanical ventilation Skin: Skin is warm and dry and no rashes or lesions are noted. Tracheostomy is intact. Eye: Pupils are equal, round and reactive to light, extra-ocular movements are intact; there is normal conjunctiva bilaterally. Ears, nose, mouth and throat: There are moist mucous membranes and no oral lesions. Neck: The neck is supple, there is no tenderness or JVD. Colostomy is intact Cardiovascular: There is a regular rate and rhythm. No murmur, rub or gallop is appreciated. Respiratory: Crackles at the bases, no rhonchi no wheezes, right-sided pigtail catheter is noted, evidence of air leak no significant drainage from the pigtail catheter noted. Gastrointestinal: Abdomen is distended, but no rebound no guarding positive bowel sounds had 3 bowel movements yesterday Musculoskeletal: No deformities and no limitation range of motion other the patient seems to be generally weak. Neurological: Patient is awake ,generally weak, follows simple instructions Extremities: 3+ bipedal edema - Labs CBC & Chem 7: 02/03/24 06:25 02/03/24 06:25 Labs: Abnormal Lab Results - Last 24 Hours (Table) 02/01/24 02/02/24 02/02/24 Range/Units 07:20 16:18 18:20 WBC (3.8-10.6) k/uL RBC (4.30-5.90) m/uL Hgb (13.0-17.5) gm/dL Hct (39.0-53.0) % RDW (11.5-15.5) % Neutrophils # (1.3-7.7) k/uL ABG pH (7.35-7.45) ABG pO2 (83-108) mmHg ABG HCO3 (21-25) mmol/L ABG Total CO2 (19-24) mmol/L ABG O2 Saturation (94-97) % Hemoglobin (13.0-17.5) gm/dL Potassium (3.5-5.1) mmol/L Carbon Dioxide (22-30) mmol/L BUN (9-20) mg/dL Creatinine (0.66-1.25) mg/dL Glucose (74-99) mg/dL POC Glucose (mg/dL) 211 H (70-110) mg/dL Calcium (8.4-10.2) mg/dL Triglycerides (0.00-149.00) mg/dL Tobramycin Trough 4.2 H* ug/mL Crossmatch See Detail 02/02/24 02/03/24 02/03/24 Range/Units 22:57 05:00 05:29 WBC (3.8-10.6) k/uL RBC (4.30-5.90) m/uL Hgb (13.0-17.5) gm/dL Hct (39.0-53.0) % RDW (11.5-15.5) % Neutrophils # (1.3-7.7) k/uL ABG pH 7.49 H (7.35-7.45) ABG pO2 122 H (83-108) mmHg ABG HCO3 33 H (21-25) mmol/L ABG Total CO2 35 H (19-24) mmol/L ABG O2 Saturation 99.5 H (94-97) % Hemoglobin 8.4 L (13.0-17.5) gm/dL Potassium (3.5-5.1) mmol/L Carbon Dioxide (22-30) mmol/L BUN (9-20) mg/dL Creatinine (0.66-1.25) mg/dL Glucose (74-99) mg/dL POC Glucose (mg/dL) 200 H 204 H (70-110) mg/dL Calcium (8.4-10.2) mg/dL Triglycerides (0.00-149.00) mg/dL Tobramycin Trough ug/mL Crossmatch 02/03/24 02/03/24 02/03/24 Range/Units 06:25 06:25 11:54 WBC 16.5 H (3.8-10.6) k/uL RBC 2.84 L (4.30-5.90) m/uL Hgb 8.6 L D (13.0-17.5) gm/dL Hct 27.2 L (39.0-53.0) % RDW 15.9 H (11.5-15.5) % Neutrophils # 13.2 H (1.3-7.7) k/uL ABG pH (7.35-7.45) ABG pO2 (83-108) mmHg ABG HCO3 (21-25) mmol/L ABG Total CO2 (19-24) mmol/L ABG O2 Saturation (94-97) % Hemoglobin (13.0-17.5) gm/dL Potassium 3.1 L (3.5-5.1) mmol/L Carbon Dioxide 34 H (22-30) mmol/L BUN 37 H (9-20) mg/dL Creatinine 0.65 L (0.66-1.25) mg/dL Glucose 185 H (74-99) mg/dL POC Glucose (mg/dL) 199 H (70-110) mg/dL Calcium 7.7 L (8.4-10.2) mg/dL Triglycerides 175.00 H (0.00-149.00) mg/dL Tobramycin Trough ug/mL Crossmatch Microbiology - Last 24 Hours (Table) 01/28/24 15:40 Blood Culture - Final Blood 01/30/24 04:06 Gram Stain - Final Sputum Sputum Culture - Final Pseudomonas aeruginosa Assessment and Plan Assessment: Impression: Acute hypoxic respiratory failure requiring intubation mechanical ventilation secondary to aspiration. Status post tracheostomy on 12/10/2023 The patient has bilateral pneumonia with a cavitary infiltrate in the right upper lobe, secondary to Pseudomonas aeruginosa, presently on Zosyn. Status post bronchoscopy on 01/28 and 01/04 and tracheostomy tube change on 01/04 Status post J-tube placement 11/16/2023, multiple complications since then related to the J-tube placement requiring multiple surgeries. 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 Critical illness polyneuropathy Metabolic encephalopathy Malfunctioning of the J-tube Recommendation: Continue ventilatory support, daily weaning of trials will be given so far patient failed every time we tried to wean him at 1 point he was on trach collar for a number of days. 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
--- NOTE | 2024-02-03 15:50 | XR ---
Abdomen single view HISTORY: NG tube placement. COMPARISON: 12/03/2023. TECHNIQUE: Single upright view of the upper abdomen was obtained. FINDINGS: NG tube is in stomach. Bowel gas pattern is unremarkable. There are bilateral lower lung interstitial infiltrates and probable small right effusion. IMPRESSION: NG tube within the stomach. [facility], Workstation: [facility], 02/03/2024 3:47 PM
--- NOTE | 2024-02-03 15:59 | P.PN ---
Subjective Progress Note Date: 02/03/24 CHIEF COMPLAINT: Abdominal pain HISTORY OF PRESENT ILLNESS: Patient shon in the ICU and on mechanical ve ntilation. They started him on propofol. Chest x-ray this morning had reported new prominent air density below the diaphragm. Pneumoperitoneum should be excluded. Patient has had increased abdominal pain and distention. White count has increased to 16. And he has had low-grade temps at 100.9. Nursing staff did report they change the dressing around the J-tube. Drainage has been bilious. Patient was seen and examined with Dr. Irby PHYSICAL EXAM: VITAL SIGNS: Reviewed. GENERAL: frail, weak HEENT: Tracheostomy site clean dry and intact ABDOMEN: Distended. Softer. Wound VAC intact. J-tube with minimal bilious drainage noted on bandage. ASSESSMENT: 1. Possible pneumoperitoneum 2. 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 Status post J-tube placement and revision for small bowel obstruction 3. Abdominal wound dehiscence status post wound VAC placement 4. Status post tracheostomy PLAN: -Concerns for free air on chest x-ray. Patient is high risk for surgery. He has high risk mortality and morbidity. A CT scan of the abdomen pelvis with contrast ordered for further evaluation of possible pneumoperitoneum and evaluation of his abdominal distention. Dr. Irby did discuss with family at bedside that patient is a high risk surgical candidate and that surgery may result in mortality and or morbidity of patient. Patient's family has addressed their understanding. At this time NG tube was placed for decompression as well as a Abarca catheter was connected to the J-tube for drainage. Lactic acid with CBC and BMP also ordered. Dr. Irby will update family further after CAT scan of abdomen and pelvis have resulted make final decision about surgical intervention. Physician Talent Development Analyst note has been reviewed by physician. Signing provider agrees with the documented findings, assessment, and plan of care. Objective - Vital Signs Vital signs: Vital Signs Temp 98.9 F 02/03/24 12:00 Pulse 92 02/03/24 13:01 Resp 17 02/03/24 13:00 BP 151/104 02/03/24 13:00 Pulse Ox 95 02/03/24 13:00 FiO2 40 02/03/24 13:00 Intake & Output 02/02/24 02/03/24 02/03/24 18:59 06:59 18:59 Intake Total 1392.298 8138.302 860 Output Total 1410 940 910 Balance 407.214 649.302 -50 Weight 107 kg 107 kg Intake: IV 320 340 140 0.9 Normal Saline @ KVO 230 240 140 Piperacillin-Tazobactam 3 100 .375 gm In Sodium Chloride 0.9% 100 ml @ 25 mls/hr IVPB Q8HR [facility] Rx# :[id number] TPN 90 Intake, IV Titration 197.214 169.302 100 Amount Dexmedetomidine/0.9% NaCl 197.214 169.302 100 (Pmx) 400 mcg In Empty Bag 1 bag @ 0.2 MCG/KG/HR 5.065 mls/hr IV .[id number] [facility] Rx#:[id number] TPN/PPN 990 1080 620 TPN 990 1080 620 Blood Product 310 Rc As-1 Unit 310 [id number] Output: Chest Tube Drainage 0 0 0 Chest Tube Right 0 0 0 Urine 1410 940 910 Other: Voiding Method Indwelling Catheter Indwelling Catheter Indwelling Catheter # Bowel Movements 2 ABP, PAP, CO, CI - Last Documented Arterial Blood Pressure 173/76 - Labs CBC & Chem 7: 02/03/24 15:36 02/03/24 15:36 Labs: Abnormal Lab Results - Last 24 Hours (Table) 02/02/24 02/02/24 02/02/24 Range/Units 16:18 18:20 22:57 WBC (3.8-10.6) k/uL RBC (4.30-5.90) m/uL Hgb (13.0-17.5) gm/dL Hct (39.0-53.0) % RDW (11.5-15.5) % Neutrophils # (1.3-7.7) k/uL ABG pH (7.35-7.45) ABG pO2 (83-108) mmHg ABG HCO3 (21-25) mmol/L ABG Total CO2 (19-24) mmol/L ABG O2 Saturation (94-97) % Hemoglobin (13.0-17.5) gm/dL Potassium (3.5-5.1) mmol/L Carbon Dioxide (22-30) mmol/L BUN (9-20) mg/dL Creatinine (0.66-1.25) mg/dL Glucose (74-99) mg/dL POC Glucose (mg/dL) 211 H 200 H (70-110) mg/dL Calcium (8.4-10.2) mg/dL Triglycerides (0.00-149.00) mg/dL Tobramycin Trough 4.2 H* ug/mL 02/03/24 02/03/24 02/03/24 Range/Units 05:00 05:29 06:25 WBC 16.5 H (3.8-10.6) k/uL RBC 2.84 L (4.30-5.90) m/uL Hgb 8.6 L D (13.0-17.5) gm/dL Hct 27.2 L (39.0-53.0) % RDW 15.9 H (11.5-15.5) % Neutrophils # 13.2 H (1.3-7.7) k/uL ABG pH 7.49 H (7.35-7.45) ABG pO2 122 H (83-108) mmHg ABG HCO3 33 H (21-25) mmol/L ABG Total CO2 35 H (19-24) mmol/L ABG O2 Saturation 99.5 H (94-97) % Hemoglobin 8.4 L (13.0-17.5) gm/dL Potassium (3.5-5.1) mmol/L Carbon Dioxide (22-30) mmol/L BUN (9-20) mg/dL Creatinine (0.66-1.25) mg/dL Glucose (74-99) mg/dL POC Glucose (mg/dL) 204 H (70-110) mg/dL Calcium (8.4-10.2) mg/dL Triglycerides (0.00-149.00) mg/dL Tobramycin Trough ug/mL 02/03/24 02/03/24 Range/Units 06:25 11:54 WBC (3.8-10.6) k/uL RBC (4.30-5.90) m/uL Hgb (13.0-17.5) gm/dL Hct (39.0-53.0) % RDW (11.5-15.5) % Neutrophils # (1.3-7.7) k/uL ABG pH (7.35-7.45) ABG pO2 (83-108) mmHg ABG HCO3 (21-25) mmol/L ABG Total CO2 (19-24) mmol/L ABG O2 Saturation (94-97) % Hemoglobin (13.0-17.5) gm/dL Potassium 3.1 L (3.5-5.1) mmol/L Carbon Dioxide 34 H (22-30) mmol/L BUN 37 H (9-20) mg/dL Creatinine 0.65 L (0.66-1.25) mg/dL Glucose 185 H (74-99) mg/dL POC Glucose (mg/dL) 199 H (70-110) mg/dL Calcium 7.7 L (8.4-10.2) mg/dL Triglycerides 175.00 H (0.00-149.00) mg/dL Tobramycin Trough ug/mL Microbiology - Last 24 Hours (Table) 01/28/24 15:40 Blood Culture - Final Blood Assessment and Plan Assessment: had an extensive discussion with family after ctap demonstrating pneumoperitoneum. discussed w/ family patient could on table and even if survive surgery could have significant morbidity. I do not believe patient will fair well. Given his disease process he is at risk for multiple perforations until he can undergo chemotherapy for lymphoma. He is currently non toxic and no surgery will be done at this time. Time with Patient: Greater than 30
[2024-02-03 16:24] LABS: Anisocytosis Slight; Basophils # (A) 0.1 k/uL (0-0.2); Basophils % (A) 0 %; Eosinophils % (A) 0 %; HCT 25.3 % (39.0-53.0); Hypochromasia Slight; Lymphocytes # (A) 2.2 k/uL (1.0-4.8); Lymphocytes % (A) 13 %; MCH 30.2 pg (25.0-35.0); MCHC 31.7 g/dL (31.0-37.0); MCV 95.3 fL (80.0-100.0); Mean Platelet Volume 8.1; Monocytes # (A) 0.5 k/uL (0-1.0); Monocytes % (A) 3 %; Neutrophils # (A) 14.1 k/uL (1.3-7.7); Neutrophils % (A) 83 %; Platelet Count 377 k/uL (150-450); RBC 2.65 m/uL (4.30-5.90); RDW 16.2 % (11.5-15.5)
[2024-02-03] MEDS: IOPAMIDOL CONTRAST (ORAL USE) VIAL PO PRN (16:37)
--- NOTE | 2024-02-03 16:53 | CDI ---
Documentation Clarification Form Date: 01/27/2024 10:32:00 AM From: Herlinda Ventura Phone: [phone] Admit Date: 11/12/2023 09:12:00 AM Patient Name: Salbador Lawton Visit Number: [id number] Discharge Date: ATTENTION: The Clinical Documentation Specialists (CDI) and [facility] Coding Staff appreciate your assistance in clarifying documentation. Please respond to the clarification below the line at the bottom and electronically sign. The CDI & [facility] Coding staff will review the response and follow-up if needed. Please note: Queries are made part of the Legal Health Record. If you have any questions, please contact the author of this message via ITS. Doctor/Provider: Dick Ewing Abdominal wound dehiscence is documented 12/13, Pulmonary note, and patient had [insert procedure, date].Additional clarification is requested regarding the relationship, if any, that exists between the diagnosis and the procedure. Patients Admitting Diagnosis: Small Bowel Obstruction Post-Operative Diagnosis: Perforated Small Bowel Procedure performed: Exploratory Laparotomy.Abdominal Washout.Small bowel resection.Wizel Feeding Jejunostomy History/Risk Factors: 73 year old male underwent EGD and was found to have ulcerated around the antrum and obstruction to the pylorus.A lot of retained food was found.Patient aspirated.Had to be intubated and brought to the ICU. Clinical Indicators: 12/13 Pulmonology: The patient had a fever and will be re-cultured.In addition, the midline incision in the abdomen, shows some evidence of purulence, and will have surgeon, take a look at that.Currently the patient is not on any antibiotics. 12/13 Surgery: Will continue to monitor midline wound dehiscence.Fascia is intact 12/18 Wound care consult: Non healing ulceration with muscle involvement other site.#2 Surgical wound dehiscence. 12/13 Blood Culture Grain Stain: Staphylococcus epidermidis Molecular ID 12/13 Abdomen Anaerobic Culture: Bacteroides thetaiotaomicron Treatment: 11/11 11/26 Zosyn IVPB Q8H; 11/23 0.9NS IVPB 1L Bolus x 1; 11/23 Tylenol IVPB Q6H x 4 bags, 11/24 Vancomycin IVPB x 1; 11/25 Tylenol IVPB x 1; 11/26 Vancomycin IVPB x 1; 11/29 12/09 Meropenem IVPB HS Consults: See above What relationship, if any, exists between the diagnosis of surgical wound dehiscence and the procedure: [ ] Surgical wound dehiscence is a complication of surgical procedure [ ] Surgical wound dehiscence is an expected outcome of the surgical procedure [ ] Surgical wound dehiscence is related to patients co-morbid condition(s) of suspected Infection at the, Severe malnutrition , Non Hodgkins lymphoma and Sepsis not a complication of the procedure [ ] [insert dx] has been ruled out [ ] Other please specify ____ [ ] Unable to determine (Template Last Revised: May 2020) MTDD
[2024-02-03 16:54] LABS: African American GFR (CKD) >90 (>60 ml/min/1.73 sqM); Anion Gap 3 mmol/L; Blood Urea Nitrogen 40 mg/dL (9-20); Calcium 7.6 mg/dL (8.4-10.2); Carbon Dioxide 30 mmol/L (22-30); Chloride 106 mmol/L (98-107); Glucose 206 mg/dL (74-99); Non-African American GFR(CKD) >90 (>60 ml/min/1.73 sqM); Potassium 3.3 mmol/L (3.5-5.1); Sodium 139 mmol/L (137-145)
--- NOTE | 2024-02-03 17:50 | CT ---
EXAMINATION TYPE: CT abdomen pelvis w con DATE OF EXAM: 02/03/2024 5:20 PM COMPARISON: CT abdomen pelvis most recent from 01/24/2024 CLINICAL INDICATION: Male, 73 years old with history of abd distention; r/o perf. abd. distention, ab normal xray TECHNIQUE: Axial CT abdomen pelvis w con;Sagittal and coronal reformats were created on a separate w orkstation. Contrast used:100 mL of Isovue 300 with IV Contrast, (none if empty) Oral contrast used: with Oral Contrast (none if empty) CT DLP: 1648.8 mGycm, Automated exposure control for dose reduction was used. FINDINGS: LOWER CHEST: Right chest tube with hydropneumothorax. Left small to pleural effusion. ABDOMEN LIVER: Unremarkable GALLBLADDER AND BILE DUCTS: Layering increased densities within the lumen consistent with gallstones are present. PANCREAS: Unremarkable. SPLEEN: Unremarkable. ADRENAL GLANDS: Unremarkable. KIDNEYS AND URETERS: No evidence of hydronephrosis or nonobstructive renal calculus. Nonobstructive c alculus measuring 3 mm and left kidney. The ureters are unremarkable. PELVIS BLADDER: No evidence for wall thickening or mass given limitations of exam. REPRODUCTIVE: Unremarkable. ABDOMEN & PELVIS STOMACH AND BOWEL: There is some hyperemia of the cecum and ascending colon with fat stranding change s extending to the hepatic flexure series 201 image 49-60. Gaseous distention of bowel in the upper a bdomen.. Nasogastric tube side-port near the distal esophagus. Oral contrast is seen within the small bowel with percutaneous J-tube noted and in appropriate position. No extravasation of contrast ident ified within the opacified loops of bowel. PERITONEUM/RETROPERITONEUM: Large amount of pneumoperitoneum with falciform ligament sign. There is g as tracking around the liver. Abnormal appearing bowel and gas tracking the mesentery series 201 imag e 57 that does extend nearly cecum. The cecum does demonstrate fat stranding changes and hyperemia. VASCULATURE: No evidence of aortic aneurysm. MUSCULOSKELETAL: No acute osseous abnormalities LYMPH NODES: No gross evidence for lymphadenopathy. SOFT TISSUE/ABDOMINAL WALL: Diffuse anasarca of the soft tissues. IMPRESSION: 1. Massive pneumoperitoneum with source possibly the right lower quadrant large bowel and/or small b owel. Hyperemia and wall thickening of the cecum and ascending colon. Correlate for possible perforat ed colitis/ typhlitis in a patient that is neutropenic. 2. Right chest tube with right hydropneumothorax. 3. Nasogastric tube side-port near the distal esophagus advancement of at least 5 cm recommended. 4. Small moderate left pleural effusion. 5. Mild cardiomegaly. 6. J-tube in satisfactory position. 7. Cholelithiasis. Findings communicated to Daron Booth 02/03/2024 5:[address] Luther Kapoor. [facility], , 02/03/2024 5:48 PM
[2024-02-03 19:11] LABS: Glucose,Whole Blood 105 mg/dL (70-110)
[2024-02-03] MEDS: [UNRECOGNIZED DRUG - REMARK] IV SCH (19:40)
[2024-02-04 00:38] LABS: Glucose,Whole Blood 182 mg/dL (70-110)
[2024-02-04 05:28] LABS: ABG Base Excess 9.7 mmol/L; ABG HCO3 34 mmol/L (21-25); ABG Oxygen Saturation 99.3 % (94-97); ABG PCO2 43 mmHg (35-45); ABG PH 7.51 (7.35-7.45); ABG PO2 109 mmHg (83-108); ABG TCO2 35 mmol/L (19-24); Allen Test Performed? Yes
[2024-02-04 06:32] LABS: Anisocytosis Slight; Basophils # (A) 0.1 k/uL (0-0.2); Basophils % (A) 0 %; Eosinophils # (A) 0.2 k/uL (0-0.7); Eosinophils % (A) 1 %; HCT 24.4 % (39.0-53.0); HGB 7.8 gm/dL (13.0-17.5); Hypochromasia Slight; Lymphocytes # (A) 3.6 k/uL (1.0-4.8); Lymphocytes % (A) 19 %; MCHC 31.8 g/dL (31.0-37.0); MCV 94.1 fL (80.0-100.0); Mean Platelet Volume 7.4; Monocytes # (A) 0.8 k/uL (0-1.0); Monocytes % (A) 4 %; Neutrophils # (A) 13.7 k/uL (1.3-7.7); Neutrophils % (A) 74 %; Platelet Count 354 k/uL (150-450); RBC 2.59 m/uL (4.30-5.90); RDW 16.2 % (11.5-15.5); WBC 18.6 k/uL (3.8-10.6)
[2024-02-04 06:53] LABS: ALT 20 U/L (4-49); African American GFR (CKD) >90 (>60 ml/min/1.73 sqM); Albumin 2.3 g/dL (3.5-5.0); Anion Gap 5 mmol/L; Blood Urea Nitrogen 39 mg/dL (9-20); Calcium 7.9 mg/dL (8.4-10.2); Carbon Dioxide 27 mmol/L (22-30); Chloride 107 mmol/L (98-107); Glucose 163 mg/dL (74-99); Non-African American GFR(CKD) >90 (>60 ml/min/1.73 sqM); Sodium 139 mmol/L (137-145); Total Bilirubin 1.1 mg/dL (0.2-1.3)
[2024-02-04 06:57] LABS: AST 46 U/L (17-59); Alkaline Phosphatase 222 U/L (38-126); Phosphorus 2.9 mg/dL (2.5-4.5); Potassium 3.1 mmol/L (3.5-5.1); Total Protein 6.3 g/dL (6.3-8.2)
[2024-02-04 07:07] LABS: Glucose,Whole Blood 177 mg/dL (70-110)
[2024-02-04 07:28] LABS: Ionized Calcium 4.7 mg/dL (4.5-5.3)
--- NOTE | 2024-02-04 08:12 | P.PN ---
Subjective Progress Note Date: 02/03/24 Principal diagnosis: Reason for follow-up is pneumonia and diverticulitis Patient is 73-year-old with male initial presentation to the hospital on 11/12/2023 after the patient did have aspiration while undergoing elective endoscopy, diagnosed with a non-Hodgkin lymphoma subsequently did have exploratory laparotomy for perforated small bowel, abdominal washout and feeding jejunostomy tube patient did require dialysis catheter placement for dialysis during this hospital stay which was subsequently discontinued, and tracheostomy for respiratory failure. On today's evaluation that is 02/03/2024, patient did have low-grade fever 100.9 F this morning patient remains to be on the vent FiO2 is currently stable at 40% however the patient is undergoing weaning process no vomiting or diarrhea reported patient noted to have more abdominal distention. Patient white count is up to 17,000 hemoglobin is 8.0 creatinine 0.60 tobramycin trough was high yesterday no missed 2.0 Objective - Vital Signs Vital signs: Vital Signs Temp 98.9 F 02/03/24 12:00 Pulse 92 02/03/24 13:01 Resp 17 02/03/24 13:00 BP 151/104 02/03/24 13:00 Pulse Ox 95 02/03/24 13:00 FiO2 40 02/03/24 13:00 Intake & Output 02/02/24 02/03/24 02/03/24 18:59 06:59 18:59 Intake Total 7374.964 2210.302 860 Output Total 1410 940 910 Balance 407.214 649.302 -50 Weight 107 kg 107 kg Intake: IV 320 340 140 0.9 Normal Saline @ KVO 230 240 140 Piperacillin-Tazobactam 3 100 .375 gm In Sodium Chloride 0.9% 100 ml @ 25 mls/hr IVPB Q8HR [facility] Rx# :[id number] TPN 90 Intake, IV Titration 197.214 169.302 100 Amount Dexmedetomidine/0.9% NaCl 197.214 169.302 100 (Pmx) 400 mcg In Empty Bag 1 bag @ 0.2 MCG/KG/HR 5.065 mls/hr IV .[id number] [facility] Rx#:[id number] TPN/PPN 990 1080 620 TPN 990 1080 620 Blood Product 310 Rc As-1 Unit 310 [id number] Output: Chest Tube Drainage 0 0 0 Chest Tube Right 0 0 0 Urine 1410 940 910 Other: Voiding Method Indwelling Catheter Indwelling Catheter Indwelling Catheter # Bowel Movements 2 ABP, PAP, CO, CI - Last Documented Arterial Blood Pressure 173/76 - Exam GENERAL DESCRIPTION: An elderly male intubated with trach RESPIRATORY SYSTEM: Unlabored breathing , coarse breath sounds anteriorly HEART: S1 S2 regular rate and rhythm , ABDOMEN: Soft , abdominal distention and tenderness EXTREMITIES: No edema feet - Labs CBC & Chem 7: 02/04/24 06:09 02/04/24 06:09 Labs: Abnormal Lab Results - Last 24 Hours (Table) 02/01/24 02/02/24 02/02/24 Range/Units 07:20 16:18 18:20 WBC (3.8-10.6) k/uL RBC (4.30-5.90) m/uL Hgb (13.0-17.5) gm/dL Hct (39.0-53.0) % RDW (11.5-15.5) % Neutrophils # (1.3-7.7) k/uL ABG pH (7.35-7.45) ABG pO2 (83-108) mmHg ABG HCO3 (21-25) mmol/L ABG Total CO2 (19-24) mmol/L ABG O2 Saturation (94-97) % Hemoglobin (13.0-17.5) gm/dL Potassium (3.5-5.1) mmol/L Carbon Dioxide (22-30) mmol/L BUN (9-20) mg/dL Creatinine (0.66-1.25) mg/dL Glucose (74-99) mg/dL POC Glucose (mg/dL) 211 H (70-110) mg/dL Calcium (8.4-10.2) mg/dL Triglycerides (0.00-149.00) mg/dL Tobramycin Trough 4.2 H* ug/mL Crossmatch See Detail 02/02/24 02/03/24 02/03/24 Range/Units 22:57 05:00 05:29 WBC (3.8-10.6) k/uL RBC (4.30-5.90) m/uL Hgb (13.0-17.5) gm/dL Hct (39.0-53.0) % RDW (11.5-15.5) % Neutrophils # (1.3-7.7) k/uL ABG pH 7.49 H (7.35-7.45) ABG pO2 122 H (83-108) mmHg ABG HCO3 33 H (21-25) mmol/L ABG Total CO2 35 H (19-24) mmol/L ABG O2 Saturation 99.5 H (94-97) % Hemoglobin 8.4 L (13.0-17.5) gm/dL Potassium (3.5-5.1) mmol/L Carbon Dioxide (22-30) mmol/L BUN (9-20) mg/dL Creatinine (0.66-1.25) mg/dL Glucose (74-99) mg/dL POC Glucose (mg/dL) 200 H 204 H (70-110) mg/dL Calcium (8.4-10.2) mg/dL Triglycerides (0.00-149.00) mg/dL Tobramycin Trough ug/mL Crossmatch 02/03/24 02/03/24 02/03/24 Range/Units 06:25 06:25 11:54 WBC 16.5 H (3.8-10.6) k/uL RBC 2.84 L (4.30-5.90) m/uL Hgb 8.6 L D (13.0-17.5) gm/dL Hct 27.2 L (39.0-53.0) % RDW 15.9 H (11.5-15.5) % Neutrophils # 13.2 H (1.3-7.7) k/uL ABG pH (7.35-7.45) ABG pO2 (83-108) mmHg ABG HCO3 (21-25) mmol/L ABG Total CO2 (19-24) mmol/L ABG O2 Saturation (94-97) % Hemoglobin (13.0-17.5) gm/dL Potassium 3.1 L (3.5-5.1) mmol/L Carbon Dioxide 34 H (22-30) mmol/L BUN 37 H (9-20) mg/dL Creatinine 0.65 L (0.66-1.25) mg/dL Glucose 185 H (74-99) mg/dL POC Glucose (mg/dL) 199 H (70-110) mg/dL Calcium 7.7 L (8.4-10.2) mg/dL Triglycerides 175.00 H (0.00-149.00) mg/dL Tobramycin Trough ug/mL Crossmatch Microbiology - Last 24 Hours (Table) 01/28/24 15:40 Blood Culture - Final Blood Assessment and Plan (1) Sepsis Current Visit: Yes Status: Acute Code(s): A41.9 - SEPSIS, UNSPECIFIED ORGANISM SNOMED Code(s): 59333388 (2) Pneumonia Current Visit: Yes Status: Acute Code(s): J18.9 - PNEUMONIA, UNSPECIFIED ORGANISM SNOMED Code(s): 814487618 (3) Bacteremia Current Visit: Yes Status: Acute Code(s): R78.81 - BACTEREMIA SNOMED Code(s): 7635700 Plan: 1 the patient did have a new fever also noticed to have worsening of his respiratory status concerning for pneumonia 2repeat blood culture have been negative sputum culture from 1127 is growing drug-resistant Pseudomonas aeruginosa sensitive only to tobramycin amikacin intermediate sensitive to Zosyn patient also have a bronchoscopy on 1128 that specimen is growing Pseudomonas with multidrug resistant pattern and intermediate to Zosyn sensitive to amikacin and tobramycin 3patient did have low-grade fever and also noted to have significant abdominal distention concerning for possible abdominal source questionable perforation General Surgery is following the patient CT abdominal pelvis has been recommended 4-patient is currently on Zosyn and tobramycin on the basis of culture report from the sputum should cover the abdominal pathogens tobramycin dosing to be adjusted by the pharmacy to decrease the risk of nephrotoxicity overall prognosis remains to be guarded Dictation was produced using [employer] dictation software. please excuse any grammatical, word or spelling errors. Time with Patient: Less than 30
--- NOTE | 2024-02-04 08:15 | P.GSCN ---
History of Present Illness Consult date: 02/04/24 Reason for Consult: Pneumoperitoneum History of present illness: 73-year-old male has been hospitalized for the last several months. 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 Patient had a jejunostomy feeding tube placed. Patient developed issues of tube feed intolerance/ileus with subsequent obstruction requiring reoperation. Patient then developed abdominal wall dehiscence after that surgical intervention. Patient has been on the ventilator with tracheostomy in place for most of his time here in the ICU. There has been consideration for comfort care/hospice measures however patient apparently a few weeks ago was awake enough that he instructed his family he wanted to return to full code. Over the last 1 to 2 days patient has developed increased abdominal distention with some increased agitation. He appeared to be in more discomfort. Low-grade fevers. Chest x- ray showed suspected free air. CAT scan performed showing large volume of pneumoperitoneum. Some inflammatory changes adjacent to the cecum with loculated air has led to the likely diagnosis of cecal perforation. Family requesting second opinion at this time as they are unsure how best to proceed. Review of Systems ROS unobtainable: due to endotracheal tube Past Medical History Past Medical History: GERD/Reflux History of Any Multi-Drug Resistant Organisms: None Reported Year Discovered:: 01/07/24 MDRO Source:: pleural fluid, sputum Past Surgical History: Heart Catheterization Additional Past Surgical History / Comment(s): colonsocopy,spinal injection, Past Anesthesia/Blood Transfusion Reactions: No Reported Reaction Past Psychological History: No Psychological Hx Reported Smoking Status: Never smoker Past Alcohol Use History: None Reported Past Drug Use History: None Reported - Past Family History Father Family Medical History: Cancer Medications and Allergies Home Medications Medication Instructions Recorded Confirmed Type Fluticasone Nasal Anderson [Flonase 2 spray EA NOSTRIL DAILY 11/11/23 11/12/23 History Nasal Anderson] Pantoprazole Sodium 40 mg PO BID 11/11/23 11/12/23 History Allergies Allergy/AdvReac Type Severity Reaction Status Date / Time No Known Allergies Allergy Verified 11/12/23 09:32 Surgical - Exam Vital Signs Temp Pulse Resp BP Pulse Ox 96.6 F L 73 16 135/71 95 11/12/23 09:26 11/12/23 09:26 11/12/23 09:26 11/12/23 09:26 11/12/23 09:26 Physical exam: General: Well-developed, well-nourished HEENT: Normocephalic, sclerae nonicteric, tracheostomy in place Abdomen: Distended, tympanic, J-tube in place left midabdomen, midline incision with open wound inferiorly with wound VAC in place Extremities: Edema bilateral lower extremity Neuro: Sedated on ventilator Results - Labs 02/04/24 06:09 02/04/24 06:09 Abnormal Lab Results - Last 24 Hours (Table) 02/03/24 02/03/24 02/03/24 Range/Units 06:25 11:54 15:36 WBC 17.0 H (3.8-10.6) k/uL RBC 2.65 L (4.30-5.90) m/uL Hgb 8.0 L (13.0-17.5) gm/dL Hct 25.3 L (39.0-53.0) % RDW 16.2 H (11.5-15.5) % Neutrophils # 14.1 H (1.3-7.7) k/uL ABG pH (7.35-7.45) ABG pO2 (83-108) mmHg ABG HCO3 (21-25) mmol/L ABG Total CO2 (19-24) mmol/L ABG O2 Saturation (94-97) % Hemoglobin (13.0-17.5) gm/dL Potassium (3.5-5.1) mmol/L BUN (9-20) mg/dL Creatinine (0.66-1.25) mg/dL Glucose (74-99) mg/dL POC Glucose (mg/dL) 199 H (70-110) mg/dL Calcium (8.4-10.2) mg/dL Alkaline Phosphatase (38-126) U/L Albumin (3.5-5.0) g/dL Triglycerides 175.00 H (0.00-149.00) mg/dL 02/03/24 02/04/24 02/04/24 Range/Units 15:36 00:37 05:30 WBC (3.8-10.6) k/uL RBC (4.30-5.90) m/uL Hgb (13.0-17.5) gm/dL Hct (39.0-53.0) % RDW (11.5-15.5) % Neutrophils # (1.3-7.7) k/uL ABG pH 7.51 H (7.35-7.45) ABG pO2 109 H (83-108) mmHg ABG HCO3 34 H (21-25) mmol/L ABG Total CO2 35 H (19-24) mmol/L ABG O2 Saturation 99.3 H (94-97) % Hemoglobin 7.4 L (13.0-17.5) gm/dL Potassium 3.3 L (3.5-5.1) mmol/L BUN 40 H (9-20) mg/dL Creatinine 0.60 L (0.66-1.25) mg/dL Glucose 206 H (74-99) mg/dL POC Glucose (mg/dL) 182 H (70-110) mg/dL Calcium 7.6 L (8.4-10.2) mg/dL Alkaline Phosphatase (38-126) U/L Albumin (3.5-5.0) g/dL Triglycerides (0.00-149.00) mg/dL 02/04/24 02/04/24 02/04/24 Range/Units 06:09 06:09 07:06 WBC 18.6 H (3.8-10.6) k/uL RBC 2.59 L (4.30-5.90) m/uL Hgb 7.8 L (13.0-17.5) gm/dL Hct 24.4 L (39.0-53.0) % RDW 16.2 H (11.5-15.5) % Neutrophils # 13.7 H (1.3-7.7) k/uL ABG pH (7.35-7.45) ABG pO2 (83-108) mmHg ABG HCO3 (21-25) mmol/L ABG Total CO2 (19-24) mmol/L ABG O2 Saturation (94-97) % Hemoglobin (13.0-17.5) gm/dL Potassium 3.1 L (3.5-5.1) mmol/L BUN 39 H (9-20) mg/dL Creatinine 0.62 L (0.66-1.25) mg/dL Glucose 163 H (74-99) mg/dL POC Glucose (mg/dL) 177 H (70-110) mg/dL Calcium 7.9 L (8.4-10.2) mg/dL Alkaline Phosphatase 222 H (38-126) U/L Albumin 2.3 L (3.5-5.0) g/dL Triglycerides (0.00-149.00) mg/dL Diabetes panel 02/03/24 02/03/24 02/04/24 Range/Units 06:25 15:36 06:09 Sodium 139 139 (137-145) mmol/L Potassium 3.3 L 3.1 L (3.5-5.1) mmol/L Chloride 106 107 (98-107) mmol/L Carbon Dioxide 30 27 (22-30) mmol/L BUN 40 H 39 H (9-20) mg/dL Creatinine 0.60 L 0.62 L (0.66-1.25) mg/dL Glucose 206 H 163 H (74-99) mg/dL Calcium 7.6 L 7.9 L (8.4-10.2) mg/dL AST 46 (17-59) U/L ALT 20 (4-49) U/L Alkaline Phosphatase 222 H (38-126) U/L Total Protein 6.3 (6.3-8.2) g/dL Albumin 2.3 L (3.5-5.0) g/dL Triglycerides 175.00 H (0.00-149.00) mg/dL Calcium panel 02/03/24 02/04/24 Range/Units 15:36 06:09 Calcium 7.6 L 7.9 L (8.4-10.2) mg/dL Ionized Calcium Krystal 4.7 (4.5-5.3) mg/dL Phosphorus 2.9 (2.5-4.5) mg/dL Albumin 2.3 L (3.5-5.0) g/dL Pituitary panel 02/03/24 02/04/24 Range/Units 15:36 06:09 Sodium 139 139 (137-145) mmol/L Potassium 3.3 L 3.1 L (3.5-5.1) mmol/L Chloride 106 107 (98-107) mmol/L Carbon Dioxide 30 27 (22-30) mmol/L BUN 40 H 39 H (9-20) mg/dL Creatinine 0.60 L 0.62 L (0.66-1.25) mg/dL Glucose 206 H 163 H (74-99) mg/dL Calcium 7.6 L 7.9 L (8.4-10.2) mg/dL Adrenal panel 02/03/24 02/04/24 Range/Units 15:36 06:09 Sodium 139 139 (137-145) mmol/L Potassium 3.3 L 3.1 L (3.5-5.1) mmol/L Chloride 106 107 (98-107) mmol/L Carbon Dioxide 30 27 (22-30) mmol/L BUN 40 H 39 H (9-20) mg/dL Creatinine 0.60 L 0.62 L (0.66-1.25) mg/dL Glucose 206 H 163 H (74-99) mg/dL Calcium 7.6 L 7.9 L (8.4-10.2) mg/dL Total Bilirubin 1.1 (0.2-1.3) mg/dL AST 46 (17-59) U/L ALT 20 (4-49) U/L Alkaline Phosphatase 222 H (38-126) U/L Total Protein 6.3 (6.3-8.2) g/dL Albumin 2.3 L (3.5-5.0) g/dL Assessment and Plan (1) Perforation bowel Narrative/Plan: 73-year-old male with prolonged hospital course and now with new findings of pneumoperitoneum and possible cecal perforation. Discussed the clinical scenario with the patient's daughter at the bedside. We discussed the 3 main options present themselves at this time. Certainly given the patient's prolonged hospital course and demonstrated poor healing comfort measures/hospice would be quite appropriate. Most aggressive option would be reexploration with probable colonic resection and ileostomy/mucous fistula. Intermediate approach would be a nonoperative one with medical support/antibiotics/bowel rest and see how the patient responds. She plans to discuss this further with the rest of her family today. Current Visit: Yes Status: Acute Code(s): K63.1 - PERFORATION OF INTESTINE (NONTRAUMATIC) SNOMED Code(s): 89807644
[2024-02-04] MEDS ORDERED: [UNRECOGNIZED DRUG - REMARK] IV SCH ×2 (09:00→20:00)
[2024-02-04] MEDS: TOBRAMYCIN SULFATE 160 MG in SODIUM CHLORIDE 0.9% 100 ML IVPB SCH (09:30)
[2024-02-04] MEDS: POTASSIUM CHLORIDE 20 MEQ in WATER FOR INJECTION 1 100ML.BAG IVPB SCH ×2 (10:01→18:04)
[2024-02-04 12:04] LABS: Glucose,Whole Blood 169 mg/dL (70-110)
--- NOTE | 2024-02-04 12:45 | P.PN ---
Subjective Progress Note Date: 02/04/24 Remains in the ICU. Patient ventilated and sedated. Spouse at bedside. Fever 100.8 last night, continues on IV abx Objective - Vital Signs Vital signs: Vital Signs Temp 99 F 02/04/24 04:00 Pulse 87 02/04/24 08:41 Resp 22 02/04/24 07:00 BP 133/80 02/04/24 07:00 Pulse Ox 100 02/04/24 07:00 FiO2 40 02/04/24 08:28 Intake & Output 02/03/24 02/04/24 02/04/24 18:59 06:59 18:59 Intake Total 1410 4095.180 1192.448 Output Total 1410 785 190 Balance 0 208.320 0438.448 Weight 107 kg 105.4 kg Intake: IV 240 240 20 0.9 Normal Saline @ KVO 240 240 20 Intake, IV Titration 100 587.823 5326.448 Amount Dexmedetomidine/0.9% NaCl 100 (Pmx) 400 mcg In Empty Bag 1 bag @ 0.2 MCG/KG/HR 5.065 mls/hr IV .[id number] [facility] Rx#:[id number] Mvi, Adult No.4 with Vit 1037 K 10 ml Trace (Conc-1Ml/ Dose) 1 ml Sodium Acetate 44 meq Magnesium Sulfate gm 1.25 gm Potassium Phosphate 3 mmol Sodium Chloride 4Meq/ml Vial 60 meq Calcium Gluconate 1 gm In Amino Acids 5 %/ Dextrose 20 % 1,000 ml @ 85 mls/hr IV .BY DURATION [facility] Rx#:[id number] propofoL 1,000 mg In 210.424 92.448 Empty Bag 1 bag @ 15 MCG/ KG/MIN 9.63 mls/hr IV . [id number] [facility] Rx#:[id number] TPN/PPN 1070 935 85 TPN 1070 935 85 Output: Chest Tube Drainage 0 0 Chest Tube Right 0 0 Drainage 125 Medial Abdomen 125 Urine 1410 785 65 Other: Voiding Method Indwelling Catheter Indwelling Catheter # Bowel Movements 1 1 ABP, PAP, CO, CI - Last Documented Arterial Blood Pressure 173/76 - Constitutional General appearance: Present: no acute distress - Respiratory Details: ventilated breath sounds - Cardiovascular Details: skin warm and dry - Neurologic Neurologic Comment(s): sedated - Labs CBC & Chem 7: 02/04/24 06:09 02/04/24 06:09 Labs: Abnormal Lab Results - Last 24 Hours (Table) 02/03/24 02/03/24 02/03/24 Range/Units 06:25 11:54 15:36 WBC 17.0 H (3.8-10.6) k/uL RBC 2.65 L (4.30-5.90) m/uL Hgb 8.0 L (13.0-17.5) gm/dL Hct 25.3 L (39.0-53.0) % RDW 16.2 H (11.5-15.5) % Neutrophils # 14.1 H (1.3-7.7) k/uL ABG pH (7.35-7.45) ABG pO2 (83-108) mmHg ABG HCO3 (21-25) mmol/L ABG Total CO2 (19-24) mmol/L ABG O2 Saturation (94-97) % Hemoglobin (13.0-17.5) gm/dL Potassium (3.5-5.1) mmol/L BUN (9-20) mg/dL Creatinine (0.66-1.25) mg/dL Glucose (74-99) mg/dL POC Glucose (mg/dL) 199 H (70-110) mg/dL Calcium (8.4-10.2) mg/dL Alkaline Phosphatase (38-126) U/L Albumin (3.5-5.0) g/dL Triglycerides 175.00 H (0.00-149.00) mg/dL 02/03/24 02/04/24 02/04/24 Range/Units 15:36 00:37 05:30 WBC (3.8-10.6) k/uL RBC (4.30-5.90) m/uL Hgb (13.0-17.5) gm/dL Hct (39.0-53.0) % RDW (11.5-15.5) % Neutrophils # (1.3-7.7) k/uL ABG pH 7.51 H (7.35-7.45) ABG pO2 109 H (83-108) mmHg ABG HCO3 34 H (21-25) mmol/L ABG Total CO2 35 H (19-24) mmol/L ABG O2 Saturation 99.3 H (94-97) % Hemoglobin 7.4 L (13.0-17.5) gm/dL Potassium 3.3 L (3.5-5.1) mmol/L BUN 40 H (9-20) mg/dL Creatinine 0.60 L (0.66-1.25) mg/dL Glucose 206 H (74-99) mg/dL POC Glucose (mg/dL) 182 H (70-110) mg/dL Calcium 7.6 L (8.4-10.2) mg/dL Alkaline Phosphatase (38-126) U/L Albumin (3.5-5.0) g/dL Triglycerides (0.00-149.00) mg/dL 02/04/24 02/04/24 02/04/24 Range/Units 06:09 06:09 07:06 WBC 18.6 H (3.8-10.6) k/uL RBC 2.59 L (4.30-5.90) m/uL Hgb 7.8 L (13.0-17.5) gm/dL Hct 24.4 L (39.0-53.0) % RDW 16.2 H (11.5-15.5) % Neutrophils # 13.7 H (1.3-7.7) k/uL ABG pH (7.35-7.45) ABG pO2 (83-108) mmHg ABG HCO3 (21-25) mmol/L ABG Total CO2 (19-24) mmol/L ABG O2 Saturation (94-97) % Hemoglobin (13.0-17.5) gm/dL Potassium 3.1 L (3.5-5.1) mmol/L BUN 39 H (9-20) mg/dL Creatinine 0.62 L (0.66-1.25) mg/dL Glucose 163 H (74-99) mg/dL POC Glucose (mg/dL) 177 H (70-110) mg/dL Calcium 7.9 L (8.4-10.2) mg/dL Alkaline Phosphatase 222 H (38-126) U/L Albumin 2.3 L (3.5-5.0) g/dL Triglycerides (0.00-149.00) mg/dL - Imaging and Cardiology CT scan - abdomen: report reviewed CT scan - pelvis: report reviewed Assessment and Plan (1) Large B-cell lymphoma Current Visit: Yes Status: Acute Priority: High Code(s): C85.10 - UNSPECIFIED B-CELL LYMPHOMA, UNSPECIFIED SITE SNOMED Code(s): 714520269 (2) Aspiration into airway Current Visit: Yes Status: Acute Priority: High Code(s): T17.908A - UNSP FB IN RESP TRACT, PART UNSP CAUSING OTH INJURY, INIT SNOMED Code(s): 589380057 (3) Gastric outlet obstruction Current Visit: Yes Status: Acute Priority: High Code(s): K31.1 - ADULT HYPERTROPHIC PYLORIC STENOSIS SNOMED Code(s): 940027362 (4) Gastric ulcer Current Visit: Yes Status: Acute Priority: High Code(s): K25.9 - GASTRIC ULCER, UNSP ACUTE OR CHRONIC, W/O HEMOR OR PERF SNOMED Code(s): 473858417 (5) Iron deficiency anemia Current Visit: Yes Status: Acute Priority: High Code(s): D50.9 - IRON DEFICIENCY ANEMIA, UNSPECIFIED SNOMED Code(s): 92913295 Plan: DLBCL of GI tract -Gastric ulcer biopsy obtained on 11/12/23 showing aggressive B-cell lymphoma -MYC +, BCL2 & 6 neg-not dbl or triple hit. -It has been previously discussed with patient/family that any treatment for lymphoma would not begin until patient is healed adequately from surgery/acute condition and been rehabilitated to at least a performance status of 1. Unfortunately, patient has had a very complicated hospitalization and patient's condition has decompensated over the last couple days. CT abdomen pelvis yesterday showing massive pneumoperitoneum with source possibly in the right lower quadrant large bowel and/or small bowel. Concern for possible perforated bowel. CCM and general surgery following. Today, we had a detailed discussion with the patient's spouse regarding his lymphoma and that unfortunately he would not be a candidate for treatment. We further discussed his critical condition and poor prognosis, as well as comfort care measures, which we felt to be appropriate at this time. Spouse is not ready at this time to make decisions regarding hospice/code status. All questions and concerns were addressed Please do not hesitate to reach out to our service for further questions/concerns Doctor attests: I performed a history and physical examination of this patient, developed impression and plan of care. Discussed with dictator. I agree with dictators note, documented as a scribe.
--- NOTE | 2024-02-04 13:17 | P.PN ---
Subjective Progress Note Date: 02/04/24 Principal diagnosis: Acute hypoxic respiratory failure requiring intubation mechanical ventilation secondary to aspiration. This is a 73-year-old white male with history of chronic abdominal pain for the last 8 months has been treated with Protonix 40 mg daily for the last 3 months with no improvement. Patient had a 22 pound weight loss in the last [address] of the abdomen and pelvis 3 weeks ago showed thickening of the antral wall with pathological adenopathy posterior to the stomach suspicious of neoplasm. Today the patient underwent elective upper endoscopy to evaluate further, patient received IV sedation by anesthesia endoscope was inserted into the mouth, esop hagus was intubated without any difficulty there was evidence of large amount of liquid and solid food noted in the stomach suggestive of gastric outlet obstruction. Scope could not be advanced through the pylorus, however in the prepyloric area there was a large superficial ulceration identified with multiple biopsies were done from this area. The body cardia and fundus could not adequately visualize because of large amount of retained food in the stomach. Scope was withdrawn back to the stomach and upon careful examination the mucosa of the antrum body and cardia as well as the fundus appeared normal. Procedure was being performed and biopsies were done patient threw up and subsequently became hypoxic there was clearly evidence of witnessed aspiration anesthesia intubated the patient, procedure was terminated, and the patient was transferred to the ICU, this consult was initiated. Patient is now on assist- control rate of 20 tidal volume 500 FiO2 70% PEEP of 10 ABG is pending, earlier ABG showed profound hypoxia patient is on propofol at 50 mcg/kg/min, next ABG is pending. Chest x-ray showed chronic changes without evidence of acute pulmonary disease. 01/10/2024, the patient is on low-dose Precedex. Currently comfortable, sensitive to mechanical ventilator. Output from the pigtail has dropped and the patient continues to have a positive airleak. The chest x-ray shows bilateral consolidation worse on the right and there is a small right apical pneumothorax. Pigtail catheter is in a good location. Blood gas showed a pH of 7.48 with a pCO2 of 35 and a pO2 of 83. He is on assist-control mode with rate of 20, tidal volume of 600, FiO2 30% with a PEEP of 5. RAYA drain output is serosanguineous. TPN is at 90 cc an hour. Fluid balance is -700 cc. The white cell count is at 15.4, hemoglobin is at 6.7 and the patient was given a unit of packed RBC and a platelet count is 188. Electrolytes show a BUN of 46 with a creatinine of 0.7, sodium of 135, potassium level of 3.3. Antibiotics has been modified to a combination of ciprofloxacin and tobramycin as the patient showed quinolone sensitive Pseudomonas in the sputum and in the drain the abscess from the right lung. On 02/01/2024, the patient is still on propofol and currently is off Nimbex. Propofol is running at 30 mcg/kg/min. He remains on assist-control mode of mechanical ventilation at rate of 28, tidal volume of 500, FiO2 50% with a PEEP of 6. Blood gases showed a pH of 7.44 with a pCO2 of 53 and pO2 of 115. Chest x-ray shows bilateral consolidation. No significant cavitation. No pneumoth orax. There is a right-sided pigtail catheter in place. No significant change in the patient has diffuse bilateral pneumonia. Bronchoscopy was done on 01/30/2024 was consistent with Pseudomonas aeruginosa. The patient remains on a combination of meropenem, vancomycin and Flagyl. He is afebrile. Hemodynamically stable. Cardiac rhythm is sinus. Continues to have leaks around his tracheostomy tube and I decided to exchange tracheostomy tube to XLT longer tracheostomy tube to prevent post leaks. The patient remains on TPN for nutritional support. Fluid balance is -2.3 L as the patient received diuretics yesterday. Continues to have edema in all 4 extremities. The white cell count is lower at 15.3 with a hemoglobin of 7.2 and a platelet count of 408. Sodium is at 140, bicarb is at 34, BUN 33 with a creatinine of 0.5. No other significant events overnight. He seems to be more arousable compared to yesterday. On 02/02/2024, the patient is on Precedex running at 1.1 mcg/kg/min. He is a bit restless. Awake and tries to talk while even being on the mechanical ventilator. He remains on assist-control mode of mechanical ventilation. He is on volume-cycled rate of 20, tidal volume of 500, FiO2 of 50% with a PEEP of 6. Blood gas showed pH of 7.38 with a pCO2 of 61 and pO2 115. Chest x-ray shows multifocal bilateral pneumonia consolidation. No pneumothorax. Pigtail cath eter still present in the right hemithorax and there is intermittent air leak. No significant output. Fluid balance is +1.1 L over the past 24 hours. The most recent bronchioloalveolar lavage obtained from this patient showed Pseudomonas aeruginosa. Nevertheless, sensitivities have been changed and is Pseudomonas aeruginosa is multidrug-resistant, there is intermediate sensitivity to Zosyn and tobramycin and based on that the patient was started on a combination of Zosyn and tobramycin. He remains on TPN for nutritional support rate of 90 cc an hour. Blood work shows a white cell count of 11.1, hemoglobin is down to 6.4 and a platelet count is at 233. BUN 34 with a creatinine of 0.6 and a sodium levels at 141 with a potassium level is a 3.9. Vancomycin has been discontinued. Abdominal exam remains unchanged. Patient was seen today on , remains in the ICU, remains intubated and mechanically ventilated, patient had a new tracheostomy placed because of leak from his previous tracheostomy this was done by Dr. Beckford on 02/01/24. He also had bronchoscopy and mucous plugs extraction on 01/28 and 01/04 0. Patient is on assist-control rate 20 tidal volume 620 FiO2 50% PEEP of 5 ABG showed a pO2 of 122 pCO2 44 pH of 7.49 hence FiO2 was cut down to 40%. Patient will be given a weaning trial with a pressure support of 14 and CPAP, however he only lasted few minutes and his respiratory rate was in the high 40s and tidal volume was not great. Patient had to be placed back on assist mode of mechanical ventilation shortly after. Remains on Precedex at 0.7, TPN at 90 cc/h patient received a unit of packed RBCs on 02/01 for hemoglobin of 6.4. His sputum continues to show Pseudomonas and this was from 01/29 remains on Zosyn. Continues to have right-sided pigtail catheter with ongoing air leak. Not ready to remove. No evidence of pneumothorax noted on the chest x-ray, continues to have bilateral airspace disease. WBC count is 16.5 hemoglobin 8.6, Basic met abolic profile is normal potassium 3.1 BUN is 37 creatinine 0.65 Seen today on 02/04/2024, ICU, intubated and mechanically ventilated, patient had a CT of the abdomen and pelvis yesterday done mostly because of worsening abdominal distention and abnormal findings on the chest x-ray is suggestive of free air under the hemidiaphragm. Indeed the patient was found to have perforated viscus and pneumoperitoneum. The main situation here is the fact that the patient is extremely poor surgical candidate, and he is critically ill, doubt if he would even survive this perforation with medical therapy. In the meantime the patient remains on antibiotics in the form of tobramycin and Zosyn surgery on the case clearly stated to the that surgical mortality is 100%, and they would not recommend surgical intervention. Family is also aware that medical therapy alone has very high mortality considering his overall condition. Patient has been on antibiotics all along, he is intubated and mechanically ventilated on AC mode of 20 tidal volume 620 FiO2 40% PEEP of 5 patient ABG showed a pO2 of 109 pCO2 43 pH of 7.51, chest x-ray continues to show hydropneumothorax and bilateral airspace disease. I had a long discussion with the family today at bedside and even suggested comfort care measures to the family, as mortality is extremely high either way. Family to make a decision on comfort care measures/hospice. Time continue antibiotics, continue TPN, continue propofol at 45 mcg/kg/min, patient is not in any shape to consider any form of weaning at this point considering this new abdominal findings/bowel perforation WBC count today is 18.6 hemoglobin 7.8 basic metabolic profile is normal potassium is a bit low at 3.1 BUN is 39 creatinine 0.60 Objective - Vital Signs Vital signs: Vital Signs Temp 99.1 F 02/04/24 12:00 Pulse 82 02/04/24 13:00 Resp 22 02/04/24 13:00 BP 125/78 02/04/24 13:00 Pulse Ox 100 02/04/24 13:00 FiO2 40 02/04/24 12:53 Intake & Output 02/03/24 02/04/24 02/04/24 18:59 06:59 18:59 Intake Total 1410 2536.776 1042.414 Output Total 1410 785 600 Balance 0 976.620 3351.414 Weight 107 kg 105.4 kg 105.4 kg Intake: IV 240 240 504 0.9 Normal Saline @ KVO 240 240 120 Fat Emulsion 20% 250 ml 84 In Empty Bag 1 bag @ 21 mls/hr IV [id number] [facility] Rx#:[id number] Piperacillin-Tazobactam 3 100 .375 gm In Sodium Chloride 0.9% 100 ml @ 25 mls/hr IVPB Q8HR [facility] Rx# :[id number] Potassium Chloride 20 meq 100 In Water For Injection 1 100ml.bag @ 50 mls/hr IVPB Q2H [facility] Rx#: [id number] Tobramycin Sulfate 160 mg 100 In Sodium Chloride 0.9% 100 ml @ 104 mls/hr IVPB Q8HR [facility] Rx#:[id number] Intake, IV Titration 100 221.509 1090.414 Amount Dexmedetomidine/0.9% NaCl 100 (Pmx) 400 mcg In Empty Bag 1 bag @ 0.2 MCG/KG/HR 5.065 mls/hr IV .[id number] [facility] Rx#:[id number] Mvi, Adult No.4 with Vit 1037 K 10 ml Trace (Conc-1Ml/ Dose) 1 ml Sodium Acetate 44 meq Magnesium Sulfate gm 1.25 gm Potassium Phosphate 3 mmol Sodium Chloride 4Meq/ml Vial 60 meq Calcium Gluconate 1 gm In Amino Acids 5 %/ Dextrose 20 % 1,000 ml @ 85 mls/hr IV .BY DURATION [facility] Rx#:[id number] propofoL 1,000 mg In 210.424 184.414 Empty Bag 1 bag @ 15 MCG/ KG/MIN 9.63 mls/hr IV . [id number] [facility] Rx#:[id number] TPN/PPN 1070 935 390 TPN 1070 935 390 Output: Chest Tube Drainage 0 0 0 Chest Tube Right 0 0 0 Drainage 250 Medial Abdomen 250 Urine 1410 785 350 Other: Voiding Method Indwelling Catheter Indwelling Catheter Indwelling Catheter # Bowel Movements 1 1 ABP, PAP, CO, CI - Last Documented Arterial Blood Pressure 173/76 - Exam General: Revealed 73-year-old white male on mechanical ventilation, sedated, on propofol. Skin: Skin is warm and dry and no rashes or lesions are noted. Tracheostomy is intact. Eye: Pupils are equal, round and reactive to light, extra-ocular movements are intact; there is normal conjunctiva bilaterally. Ears, nose, mouth and throat: There are moist mucous membranes and no oral lesions. Neck: The neck is supple, there is no tenderness or JVD. Tracheostomy is intact Cardiovascular: There is a regular rate and rhythm. No murmur, rub or gallop is appreciated. Respiratory: Crackles at the bases, no rhonchi no wheezes, right-sided pigtail catheter is noted, evidence of air leak no significant drainage from the pigtail catheter noted. Gastrointestinal: Abdomen is distended, but no rebound no guarding breath sounds, continues to have leakage around the J-tube and continues to have a wound VAC in mid abdomen. Musculoskeletal: No deformities and no limitation range of motion other the patient seems to be generally weak. Neurological: Sedated, on propofol, could not assess Extremities: 3+ bipedal edema - Labs CBC & Chem 7: 02/04/24 06:09 02/04/24 06:09 Labs: Abnormal Lab Results - Last 24 Hours (Table) 02/03/24 02/03/24 02/04/24 Range/Units 15:36 15:36 00:37 WBC 17.0 H (3.8-10.6) k/uL RBC 2.65 L (4.30-5.90) m/uL Hgb 8.0 L (13.0-17.5) gm/dL Hct 25.3 L (39.0-53.0) % RDW 16.2 H (11.5-15.5) % Neutrophils # 14.1 H (1.3-7.7) k/uL ABG pH (7.35-7.45) ABG pO2 (83-108) mmHg ABG HCO3 (21-25) mmol/L ABG Total CO2 (19-24) mmol/L ABG O2 Saturation (94-97) % Hemoglobin (13.0-17.5) gm/dL Potassium 3.3 L (3.5-5.1) mmol/L BUN 40 H (9-20) mg/dL Creatinine 0.60 L (0.66-1.25) mg/dL Glucose 206 H (74-99) mg/dL POC Glucose (mg/dL) 182 H (70-110) mg/dL Calcium 7.6 L (8.4-10.2) mg/dL Alkaline Phosphatase (38-126) U/L Albumin (3.5-5.0) g/dL 02/04/24 02/04/24 02/04/24 Range/Units 05:30 06:09 06:09 WBC 18.6 H (3.8-10.6) k/uL RBC 2.59 L (4.30-5.90) m/uL Hgb 7.8 L (13.0-17.5) gm/dL Hct 24.4 L (39.0-53.0) % RDW 16.2 H (11.5-15.5) % Neutrophils # 13.7 H (1.3-7.7) k/uL ABG pH 7.51 H (7.35-7.45) ABG pO2 109 H (83-108) mmHg ABG HCO3 34 H (21-25) mmol/L ABG Total CO2 35 H (19-24) mmol/L ABG O2 Saturation 99.3 H (94-97) % Hemoglobin 7.4 L (13.0-17.5) gm/dL Potassium 3.1 L (3.5-5.1) mmol/L BUN 39 H (9-20) mg/dL Creatinine 0.62 L (0.66-1.25) mg/dL Glucose 163 H (74-99) mg/dL POC Glucose (mg/dL) (70-110) mg/dL Calcium 7.9 L (8.4-10.2) mg/dL Alkaline Phosphatase 222 H (38-126) U/L Albumin 2.3 L (3.5-5.0) g/dL 24 02/04/24 Range/Units 07:06 12:03 WBC (3.8-10.6) k/uL RBC (4.30-5.90) m/uL Hgb (13.0-17.5) gm/dL Hct (39.0-53.0) % RDW (11.5-15.5) % Neutrophils # (1.3-7.7) k/uL ABG pH (7.35-7.45) ABG pO2 (83-108) mmHg ABG HCO3 (21-25) mmol/L ABG Total CO2 (19-24) mmol/L ABG O2 Saturation (94-97) % Hemoglobin (13.0-17.5) gm/dL Potassium (3.5-5.1) mmol/L BUN (9-20) mg/dL Creatinine (0.66-1.25) mg/dL Glucose (74-99) mg/dL POC Glucose (mg/dL) 177 H 169 H (70-110) mg/dL Calcium (8.4-10.2) mg/dL Alkaline Phosphatase (38-126) U/L Albumin (3.5-5.0) g/dL Assessment and Plan Assessment: Impression: Acute hypoxic respiratory failure requiring intubation mechanical ventilation secondary to aspiration. Status post tracheostomy on 12/10/2023 The patient has bilateral pneumonia with a cavitary infiltrate in the right upper lobe, secondary to Pseudomonas aeruginosa, presently on Zosyn. Status post bronchoscopy on 01/28 and 01/04 and tracheostomy tube change on 01/04 Status post J-tube placement 11/16/2023, multiple complications since then related to the J-tube placement requiring multiple surgeries. 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 Critical illness polyneuropathy Metabolic encephalopathy Malfunctioning of the J-tube Bowel perforation, diagnosed on 02/03/2024, surgery on the case is not recommending surgical intervention because of high mortality/morbidity Recommendation: Updated family on his poor clinical status again today and made aware of the abdominal findings, family is undecided yet about comfort care measures and hospice. Will continue the same present supportive care measures surgery is not planning in any way shape or form to take this patient to surgery. Continue ventilatory support, no weaning trials recommended today Continue antibiotics including tobramycin and Zosyn Continue propofol for now Continue nutritional support/TPN continue chest tube/pigtail catheter to suction Hold on physical therapy and Occupational Therapy for now considering this new abdominal finding and poor prognosis Continue GI and DVT prophylaxis Remains critically ill, prognosis is extremely poor, I honestly believe that this is a medical futility situation Critical care time is over 30 family updated on his condition, strongly recommended considering hospice/comfort care Will continue to follow Time with Patient: Greater than 30
--- NOTE | 2024-02-04 15:14 | P.PN ---
Progress Note - Text Progress Note Date: 02/04/24 Chief Complaint: On the ventilator This is a 73-year-old patient, follows with Dr. Patricia Deal. Patient was seen this morning in the ICU. Patient's and daughter at the bedside. History obtained predominantly by the . Patient been having trouble with his stomach symptoms for close to 8 months. Patient underwent EGD by Dr. Sahara Cheng yesterday. Patient was found to have ulcerated around the antrum and obstruction to the pylorus. A lot of retained food was found. Patient aspirated. Had to be intubated and brought to the ICU. On a Levophed drip. FiO2 50 and a PEEP of 6. Patient had been losing weight lost about 25 pounds. Previously has a history of mitral valve prolapse. November 13: ICU. Patient remains on Precedex drip and propofol drip. Did not do well attempted extubation yesterday. Patient been off Levophed. NG tube to suction. Spoke to patient's and son at the bedside. Biopsy results awaited. Hemoglobin dropped to 6.9 this morning. Get a unit of blood. November 14: ICU. Up in a chair. Extubated yesterday. NG tube to suction. at the bedside. 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 Oncology was consulted. They have ordered a port. Results discussed with Dr. Sahara Cheng. General surgery was consulted for J-tube placement. Discussed with at the bedside. Patient getting IV fluids, IV Zosyn,. Patient has been on IV amiodarone for A-fib-back in sinus rhythm. Multiple PACs. Did receive unit of blood yesterday. Also IV ferric gluconate. November 15: ICU. Patient earlier today underwent jejunostomy tube placement and a port placement. Patient awake. Answering questions. NG tube to suction present. Updated patient's . Patient remains on IV amiodarone and IV Zosyn. November 16: ICU. Up in the chair. NG tube present but not to suction. Trickle feeding through the jejunostomy tube should be started today. Dietitian has been on board. IV Zosyn to continue. Patient's and his sister at the bedside. Discussed. Also spoke with Dr. Serna. Given patient has no other predisposing cardiac factors for the A-fib except acute illness. His LV function is normal. Left atrium is normal. He has already been loaded with IV amiodarone. Will switch him to oral Lopressor 12.5 twice daily. Hence will DC amiodarone. Patient yesterday had wheezing was put on bronchodilators steroids per pulmonary. November 17: Propped up in bed. NG tube was discontinued. Sinus rhythm. Remains NPO. Getting G-tube feeding at 40 cc an hour. Dietitian following. Get arrangements done for DC home tomorrow including tube feeding. Increase activity discussed with patient and elder daughter at the bedside. Still requiring oxygen. Incentive spirometry. November 18: Patient up in recliner. Earlier today spoke to social media marketing specialist David. Informed patient is rather weak and will be going to the [facility]. Looking at authorization. Denae came to the room and spoke to patient his and his daughter. They are very keen to take the patient home as 3 daughters all nurses and they will take care of him at home. Patient earlier today to abdominal cramping and some loose stools.'s tube feeding was held. Told the nurse to start back at the rate of 40 cc an hour. He was before the getting it at 55 cc an hour. Incentive spirometry was again emphasized. Patient remains on 4 L of oxygen. November 19: I saw the patient this morning. Hence I am in the evening. Morning was sitting with his sons. Has some edema. Lungs had crackles I gave him 40 mg of Lasix. He did make good urine. Tube feeding was held from the p revious evening of because of abdominal cramping. Acute abdominal series showed nonspecific bowel gas pattern and SBO to be ruled out. Family and patient was updated. Told him discharge will depend on day by day. Later this afternoon CT scanAnd abdomen pelvis done. Showed small bowel to be 3 point centimeter dilated. Some anasarca. Gastric findings. Gallstones. Later spoke to Dr. Irby from general surgery. They will further review and decide about further plan of action. Will give further dose of IV Lasix because of fluid overload from likely hypoalbuminemia and IV fluids previously received. Patient may take his pills by mouth. Total time spent today about 1 hour with over 40 minutes of discussion. Patient did state his breathing is better after Lasix this morning. November 20: Saw the patient this morning. was present. Patient received 2 more doses of Lasix. Diuresed well. Breathing much better. Lungs are sounding better. Discussed with Dr. Zepeda other surgeon. He is taking 3 cc out of the balloon and the gastrostomy tube. Started trickle feeding at 5 cc an hour. Will see how this does. Later in the day ran into the and the daughter again. Did update them on the same. Dilaudid was discontinued yesterday but morphine was ordered by surgery for patient having pain. Concerns about GI issues with that we will DC the morphine. As family does not want the same. November 21: Patient reclining bed. Tired. Several family members at the bedside. Including his and eldest daughter. Patient started on trickle feed yesterday at 5 cc an hour. This morning he has been on 10 cc an hour. Still having some loose stools. C. difficile was ordered. Patient on 2 L of nasal cannula. Has diuresed well. Will give an additional dose of Lasix today. If C. difficile is negative and the diarrhea is from the tube feedings we may have to use a fecal management system to keep him comfortable. Otherwise patient remains NPO. Dietitian is following the patient. Care was discussed length with patient the and daughter at the bedside. Questions answered. Liquid Tylenol has been added for abdominal pain. Avoid narcotics. Elevated white count likely from Solu-Medrol 11/23/2023--patient was feeling better today. Multiple family member at bedside. No issues overnight. Normal saline at 10 cc an hour, tube feeding at 20 cc an hour, remains on Zosyn, on 3 L oxygen. Afebrile. Heart rate 62, respiratory rate 16, blood pressure 114/67, saturating 91% on 3 L. WBCs 14.5, 9.7 hemoglobin. Platelet 242. BMP is unremarkable. Pulmonary and general surgery following. General surgery recommended to continue tube feeds at 20 cc/h. 11/24/2023--patient reported significant abdominal discomfort, also noted to have leak around G-tube. General surgery is following, evaluated the patient at bedside, adjusted tube feeds. Also reported having diarrhea, on 2 L oxygen, went up to 5 L. Blood pressure was low, 500 mL fluid bolus with close monitoring of respiratory status ordered. Currently on DuoNebs, Solu-Medrol, will continue Zosyn. Chest x-ray showed a left lower lobe infiltrate. Abdominal x-ray showed multiple air-fluid levels. CT abdomen showed multiple dilated small bowel loops, consistent with obstruction, pneumoperitoneum, cholelithiasis and ascites. WBCs 14.1, platelet 255, hemoglobin 8.9. NG tube in place. Family at bedside. patient transferred to SICU for close monitoring. 11/25/23--patient is currently in the ICU, required Levophed overnight due to low blood pressure, low urine output with creatinine trending up. Nephrology following. Director Digital also following. Patient remains n.p.o., NG tube in place, following NG tube insertion patient had total of 2 L output, J-tube was draining approximately 200 cc over last 8 hours, continues to have abdominal pain and abdominal tenderness. Patient on IV fluids. Currently on 4 L oxygen. WBCs 8.2, hemoglobin 12.3, platelet 188. Chest x-ray earlier today showed right sided port and a stable left lung airspace disease, NG tube in place. Patient currently on Zosyn, on IV Dilaudid for pain control, on IV Solu-Medrol. General surgery planning for OR today, started on TPN. 11/26/23--patient was seen and examined today. Patient is currently sedated, intubated on mechanical ventilation. Family at bedside. Patient underwent ex lap, abdominal washout, small bowel resection with new feeding jejunostomy tube placement yesterday, small bowel was noted to be perforated with significant contamination of abdominal cavity. Patient is currently on vancomycin and Zosyn. Creatinine went up to 2.85, nephrology following, recommended to continue IV fluids, avoid nephrotoxin Preserved EF on echocardiogram.. Patient currently on Levophed, vasopressin in the ICU for close monitoring. Patient is afebrile, heart rate 122, blood pressure 129/76, currently on mechanical ventilation, sedated. November 26: ICU. Intubated. FiO2 60 and a PEEP of 5. Drips include IV amiodarone. Heart rate was up early did get fired microgram of IV digoxin and 2.5 mg of IV Lopressor. Did drop her blood pressure bit. Urine output was low. Received 80 mg of IV Lasix. Ahmet to 150 cc. Other drips include IV propofol, vasopressin, Levophed. TPN was started yesterday. Antibiotics include IV Zosyn and vancomycin. Patient has a J-tube to drainage to gravity. Spoke to patient's younger daughter and at the bedside. Prognosis guarded. Continue current treatment plan. Chest x-ray shows right lower lobe consolidation. Small pleural effusion. November 27: ICU. Intubated. FiO2 55 and a PEEP of 5. Antibiotics include IV vancomycin. Drips include Levophed at a small dose, IV vasopressin, propofol, amiodarone. Patient converted to sinus rhythm this morning. Getting TPN and normal saline at 75 cc an hour. Urine output about 25 cc an hour. RAYA drain put out about 260 cc last 12 hours that is last operations supervisor 2nd shift. NG tube with bilious output. And also GI J-tube output to gravity. Spoke to patient's and daughter at the bedside. They understand patient still not out of the kee. Platelets have dropped-therefore probably Zosyn stopped. November 28: ICU. Intubated. FiO2 55 and a PEEP of 5. Patient is in sinus rhythm. Seen this morning. Due for dialysis catheter this afternoon. Urine output about 15 to 20 cc an hour. Patient is on IV Lasix 80 mg every 12. Saline is KVO. Drips include IV propofol vasopressin. Patient having significant output through the RAYA drain and the jejunostomy tube to drainage. Creatinine had been getting worse. Patient's at the bedside. Understands patient's remains critically ill. Hemoglobin is down to 7. Given that patient's pain hypotensive, and on vasopressin we will give a unit of blood with dialysis. Getting TPN antibiotic changed to IV meropenem November 29: ICU. Intubated. FiO2 55 and a PEEP of 5. Remains in sinus rhythm. Getting TPN. Dialyzed yesterday and this morning. About 1000 cc removed. Urine output about 50 cc an hour. Patient is on IV propofol. Off vasopressin. Still having significant output through the RAYA drain and jejunostomy tube. Patient received a second unit of blood yesterday. Patient's and daughter at the bedside. I did discuss guarded prognosis. Did asked them to revisit CODE STATUS.. Getting IV meropenem. November 30: ICU. Intubated. Did get a sedation holiday t today. Back on propofol. Getting TPN. Still getting IV Lasix. Fair urine output. Jejunostomy tube in last 8 hours was about 30 cc output. RAYA drain in the 8 hours had about 180 cc output. Telemetry shows sinus rhythm. NG tube has low intermittent suction with negative output. On the vent with FiO2 40 and a PEEP of 5. No hemodialysis today. Discussed with the and eldest daughter at the bedside. IV meropenem-patient's sputum had grown Citrobacter freundii and Pseudomonas aeruginosa. December 01: ICU. Intubated. Jejunostomy tube to gravity. Only 10 cc output in last 24 hours. RAYA drain. About 190 cc last 6 hours. Nasogastric tube to low intermittent suction. Minimal output. Patient is on a small dose of propofol 5 mics. Telemetry shows sinus rhythm. Patient started on small dose of Cleviprex this morning. Blood pressure. Getting TPN. FiO2 35 and PEEP of 5. Discussed with the at the bedside. Hemodialysis today December 02: ICU. Patient remains intubated. FiO2 35 PEEP of 5. Patient is on IV propofol. IV Cleviprex was discontinued yesterday. Also remains on TPN. Telemetry shows sinus rhythm. NG tube is good no output. Still significant output through the RAYA drain. Jejunostomy tube has minimal output. Patient had hemodialysis today 2 L of fluid was removed. Oral half liters yesterday. Patient getting a sedation holiday. General Surgery started the patient on trickle feeding at 10 cc an hour. I did speak to patient's at the bedside. Prognosis remains guarded but there is some improvement. December 03: ICU. Intubated. FiO2 35 PEEP of 5. Drips include IV propofol and Precedex. Getting TPN. Telemetry shows sinus rhythm. Remains on IV Lasix 80 mg twice a day. IV meropenem. Because patient gets easily agitated when transitioning off propofol he has been switched over to Precedex. For hemodialysis today. December 04: ICU. Intubated. FiO2 35 and a PEEP of 5. Patient been taken off propofol is on Precedex. Telemetry sinus rhythm. J-tube with minimal output. RAYA drain with decreased output. NG tube to suction minimal output. Family wanted to hold off trickle feeding until cleared by oncology. Which he did today. Trickle feeding will be started today. Spoke to patient's and one of the daughters at the bedside. Dr. Russ is spoken to the earlier this point they want to do further tracheostomy tube. October 4: ICU. Intubated. FiO2 35 PEEP of 5. Patient remains on Precedex and PPN. Patient's dialysis catheter was not functioning is getting another [address] Bobby this afternoon. Remains on IV meropenem. Has a RAYA drain in the jejunostomy tube to gravity. NG tube to low intermittent suction. No family at the bedside. December 06: ICU. Intubated. FiO2 35 PEEP of 5. RAYA drain putting out about approximately 120 cc per shift. Patient on IV Precedex. FiO2 35 PEEP of 5. Telemetry-sinus rhythm. Patient occasionally been put on small dose of Levophed specially for hemodialysis getting it today. Also started on midodrine for low blood pressure. Tolerating tube feeding at 10 cc an hour. Also had a bowel movement. Mentation has not improved. Even with sedation holiday. Neurology consulted. CT brain shows no acute process. December 07: ICU. Intubated. FiO2 35 PEEP of 5. Telemetry-sinus rhythm. NG tube to suction low intermittent minimal output. Getting TPN. Tube feeding at 20 cc an hour. RAYA drain averaging over 100 cc per shift. Remains on Precedex. EEG was done today. Discussed with at the bedside. Family is currently not inclined for tracheostomy tube today. Day 13 of being intubated December 08: ICU. Intubated. FiO2 35 PEEP of 5. Patient is put on back on propofol per senior linux unix engineer Dr. JIMENEZ. EEG did show some potential for spikes was put on Keppra by neurology. Telemetry shows sinus rhythm. NG tube to suction with no output. Tube feeding was put on hold because of questionable discharge on the site. Being restarted today. RAYA drain is 150 cc last 12-hour shift. Patient does open eyes. Family has decided to proceed with tracheostomy and surgery has been consulted for the same. Spoke to the at the bedside. For hemodialysis today. December 09: ICU. Intubated FiO2 35 PEEP of 5. Patient seen this morning. Pending tracheostomy placement this afternoon. Remains NPO. G-tube feeding was held overnight. RAYA drain putting out about 100 cc per shift. Received a unit of blood for hemoglobin of 6.6. On 25 mics of propofol. Getting TPN and meropenem. Spoke to the at the bedside. Patient became hypotensive with dialysis yesterday. Levophed had to be given. Only 800 cc were removed yesterday. No hemodialysis today. December 10: ICU . FiO2 35, PEEP 5. Tracheostomy was done yesterday by Dr. Ewing. G-tube feeding was started today at 10 cc an hour. Dietitian following. RAYA drain 12-hour shift overnight put out about 30 cc. Patient hemodialysis today about 1 L removed. Patient has a sacral stage II decub with a dressing. On propofol 20 mics. Spoke to at the bedside. TPN. Meropenem was discontinued yesterday. December 11: ICU. FiO2 35 PEEP of 5. Tracheostomy. NG tube was discontinued. No hemodialysis today. Telemetry shows sinus rhythm. J-tube feeding at 40 cc an hour. TPN was discontinued. Patient has been off propofol also. PICC line in place. Patient had a EEG done today. Spoke to patient's elder daughter at the bedside. May open eyes occasionally. Not really following commands December 12: 73-year-old white male with history of chronic abdominal pain for the last 8 months has been treated with Protonix 40 mg daily for the last 3 months with no improvement. Patient had a 22 pound weight loss in the last [address] of the abdomen and pelvis 3 weeks ago showed thickening of the antral wall with pathological adenopathy posterior to the stomach suspicious of neoplasm. Today the patient underwent elective upper endoscopy to evaluate further, patient received IV sedation by anesthesia endoscope was inserted into the mouth, esophagus was intubated without any difficulty there was evidence of large amount of liquid and solid food noted in the stomach suggestive of gastric outlet obstruction. Scope could not be advanced through the pylorus, however in the prepyloric area there was a large superficial ulceration identified with multiple biopsies were done from this area. The body cardia and fundus could not adequately visualize because of large amount of retained food in the s tomach. Scope was withdrawn back to the stomach and upon careful examination the mucosa of the antrum body and cardia as well as the fundus appeared normal. Procedure was being performed and biopsies were done patient threw up and subsequently became hypoxic there was clearly evidence of witnessed aspiration anesthesia intubated the patient, procedure was terminated, and the patient was transferred to the ICU, this consult was initiated. Patient is now on assist- control rate of 20 tidal volume 500 FiO2 70% PEEP of 10 ABG is pending, earlier ABG showed profound hypoxia patient is on propofol at 50 mcg/kg/min, next ABG is pending. Chest x-ray showed chronic changes without evidence of acute pulmonary disease. 12/14/2023 Patient remains in the ICU, generally weak Patient s/p tracheostomy G-tube in place Patient still has fever and mild tachycardia but tachycardia is improving, leukocytosis improving as well. Hemoglobin 8.1. Creatinine 3.0 and nephrology team on the case. He has mild transaminitis. He was getting Zosyn which is held now, nowCalcitonin is pending 12/14 Patient shon in the ICU, he is still encephalopathic and does not follow command. Neurology service following closely. He is status post tracheostomy. Also J-tube His abdomen looks soft and on exam he has mild coarse secretions. Has a Abarca catheter with clear urine His pro- Calcitonin is still high but trending down 3.0 down to 1.9 No fever this morning WBC slightly less at 16.3 Patient currently off antibiotic He is getting steroids IV Solu-Medrol which might contribute to his leukocytosis. Also he is on IV Keppra by neurologist 12/14 Patient remains confused in the ICU calm, he had a good night per family member and staff. Tracheostomy in place Patient has occasional coughing spells, patient also developed some partial wound dehiscence in his abdomen, surgery team are aware and are going to evaluate the patient Patient also has positive blood culture from 12/13: Gram-positive cocci in clusters. Patient received one-time dose of IV vancomycin. Patient also had fever 2 days ago, leukocytosis and total elevated pro- Calcitonin. Therefore we are going to consult infectious disease team. As his antibiotic Zosyn was stopped few days ago. Currently patient KVO He has good urine output December 16: ICU. Trach. Congested. Requiring suctioning. No hemodialysis today. Getting G-tube feeding at 50 cc an hour. FiO2 30 and a PEEP of 5. On IV Precedex. Eyes open. Does follow commands. Weakness in the limbs. Spoke to at the bedside. Sputum positive for Klebsiella oxytoca and Pseudomonas aeruginosa. December 17: ICU. On trach. Currently cough with increased secretions requiring suctioning. Adding scopolamine patch. Very much clear secretion. CT scan is showing right upper lobe lung abscess. G-tube feeding at 50 cc an hour. Hemodialysis today. RAYA drain putting out about 140 cc a shift. Serous. Has been midline incision wound dehiscence. Wound VAC was placed on it. Stage II ulcer. Patient is on Precedex drip 0.15 mics. Urine output is good about 6200 cc an hour. Spoke to the at the bedside. Patient currently not stable for transfer to LTAC. No limb movements. PT OT on the case. otherwise awake does follow simple commands by face December 18: ICU. Patient seen this afternoon. Because of pain getting IV Dilaudid. No nasal cannula on room air. Does move about his head. Telemetry shows sinus rhythm. FiO2 30 and a PEEP of 5. Patient started on scopolamine patch yesterday has decreased secretions today. Good urine output. Tube feeding at 60 cc an hour. Wound VAC on incisional would be high since in place. RAYA drain continues to make output. No hemodialysis today December 19: ICU. Patient was seen earlier today. FiO2 30 and a PEEP of 5. Sinus rhythm. Awake. Does follow with eyes. Tube feeding got obstructed tube feedings held for now. Increasing oozing from the incision drainage site. at the bedside. Wound VAC remains in place. Good urine output. Dialysis held today. December 20: ICU. Per nephrology no dialysis today. 1 L fluid bolus given. J- tube was replaced over the wire by Dr. Ewing from surgery. On Precedex 0.6 mcg. FiO2 30 and a PEEP of 5 on the vent. RAYA drain putting out of around 100 cc per shift. at the bedside. Drainage through the abdominal incision wound. CT scan abdomen showed tube placement in the small bowel. Stable large right lower quadrant mass with a fluid level. December 21: ICU. No dialysis today. Patient started on trickle feeding through the J-tube yesterday. He started leaking around the J-tube site. Tube feeding was held. Dressings were placed. Wound VAC remains on the incision. Still having output through the RAYA drain. Patient remains on Precedex 0.4 mcg. FiO2 30 and a PEEP of 5. Sinus rhythm. at the bedside. December 22: ICU. Patient was seen this morning today by me. No dialysis today. Patient's and daughter at the bedside. FiO2 30 and a PEEP of 5. Sinus rhythm. Still having significant secretions through the tracheostomy tube. On Precedex 0.4 mcg. Getting D5W IV fluids. Tube feeding remains to be on hold since yesterday. Still output of RAYA drain. Awaiting input from surgery. Discussed with the and daughter. December 23: ICU. Saw the patient this afternoon. Because of good output of urine dialysis has been discontinued. Telemetry shows sinus rhythm. FiO2 30 and a PEEP of 5. RAYA output has been around 8200 cc an hour. Good urine output. Patient does have very slight movement of the limbs. Wound VAC is putting out about 20 cc per shift. Yesterday when trickle feeding was started patient's J- tube drainage also started leaking around the insertion site. Tube feeding was held. Patient remains on IV Zosyn and Precedex at 0.3 mcg. I had a very lengthy discussion with patient's daughter and at the bedside overall guarded prognosis. Later surgery spoke to the family, and then the nurse called me that family was wanting transferred to [facility]. I spoke to Dr. Irby. They felt they could not offer anything more at this point. I did call the [facility] transfer team driver. Gave them the reason for transfer. Later in the ICU nurse informed me through [employer] that [facility] had declined the transfer. Total time spent today about 50 minutes with over 30 minutes of discussion. December 24: ICU. Patient is doing not too well. Sinus rhythm. Drips include norepinephrine and IV propofol. Surgery did put 2 stitches around the J-tube insertion site. Started on TPN today. FiO2 30 PEEP of 5. Patient became hypothermic put on a Manjit hugger. Also hypoglycemic. Decreased urine output. IV fluids increased. Patient's son was at the bedside. I did speak to patient's eldest daughter outside in the waiting room. Did tell the patient doing very poorly. I did try to call the on the phone number she has gone home. Started an IV antifungal today. December 26, 2023 73-year-old white male with history of chronic abdominal pain for the last 8 months has been treated with Protonix 40 mg daily for the last 3 months with no improvement. Patient had a 22 pound weight loss in the last [address] of the abdomen and pelvis 3 weeks ago showed thickening of the antral wall with pathological adenopathy posterior to the stomach suspicious of neoplasm. Today the patient underwent elective upper endoscopy to evaluate further, patient received IV sedation by anesthesia endoscope was inserted into the mouth, esophagus was intubated without any difficulty there was evidence of large amount of liquid and solid food noted in the stomach suggestive of gastric outlet obstruction. Scope could not be advanced through the pylorus, however in the prepyloric area there was a large superficial ulceration identified with multiple biopsies were done from this area. The body cardia and fundus could not adequately visualize because of large amount of retained food in the stomach. Scope was withdrawn back to the stomach and upon careful examination the mucosa of the antrum body and cardia as well as the fundus appeared normal. Procedure was being performed and biopsies were done patient threw up and subsequently became hypoxic there was clearly evidence of witnessed aspiration anesthesia intubated the patient, procedure was terminated, and the patient was transferred to the ICU, this consult was initiated. Patient is now on assist- control rate of 20 tidal volume 500 FiO2 70% PEEP of 10 ABG is pending, earlier ABG showed profound hypoxia patient is on propofol at 50 mcg/kg/min, next ABG is pending. Chest x-ray showed chronic changes without evidence of acute pulmonary disease. 12/27/2023 Patient is seen and evaluated with family at bedside; remains in the ICU intubated and mechanically ventilated. - ABG showed a pO2 of 99 pCO2 31 pH of 7.44. -- Remains on Eraxis daptomycin and Zosyn patient is intermittently requiring Dilaudid, Ativan does not seem to help his agitation and restlessness. -- Continues to have leakage around the jejunostomy tube, and patient is undergoing the J-tube exchange today. Family is at bedside, seems to be quite anxious about his overall condition, and I explained to the that we are doing the best we can considering his critical illness situation and critical illness polyneuropathy. Patient is profoundly weak, and weaning the patient from mechanical ventilation is almost impossible. At least not at this point yet WBC count is 10.9 hemoglobin is 8.1 basic metabolic profile is normal BUN is 46 creatinine 1.90 patient has been off hemodialysis since the . Chest x- ray continues to show stable findings with right upper lobe opacity and right lower lobe opacity and possibly a small right-sided pleural effusion ----Continue ventilatory support, now on IMV mode rate of 16 with pressure support of 14 Continue Precedex and use Dilaudid 0.5 mg every 2-3 hours as needed. Nutritional support patient is now on TPN, Possible J-tube changed today for J- tube malfunction Continue antibiotics including daptomycin and Zosyn, Eraxis was added by infectious disease 12/28/2023 the patient is seen and evaluated in room at bedside; continues to be afebrile, the patient is on the ventilator through the trach FiO2 is currently stable at 30% no significant pleural effusion clinically patient on requiring any pressor support still having drainage around his jejunostomy tube patient dialysis catheter has been discontinued. Patient white count normalized to 7.6, creatinine is 1.51 patient with pneumonia with a sputum showing Citrobacter and Pseudomonas aeruginosa, the patient sputum repeat is still growing Citrobacter and Pseudomonas sensitive to the Pseudomonas is pending continue with Zosyn -patient did have a positive blood culture with staph epi that was oxacillin resistant as the patient did have a PICC line and the dialysis catheter he is on daptomycin repeat blood culture currently growing oxacillin sensitive staph epi, the patient dialysis catheter has been discontinued Has been sent for the culture -patient also have significant excoriation around his jejunostomy tube site which is still leaking Eraxis was added which will be continued as the patient fever pattern has improved and the patient white count has normalized once again discussed with the nursing staff to apply Triad cream which was discussed yesterday but not applied and monitor clinical course closely 12/29/2023 Patient is seen and evaluated with family members at bedside; remains intubated and mechanically ventilated -- ABG showed a pO2 of 105 pCO2 31 pH of 7.45. Remains on Precedex; multiple antibiotics and antifungal including Eraxis daptomycin and Zosyn. -- chest x-ray is showing improvement in his right upper lobe airspace disease/pulmonary abscess. Right lower lobe seems about the same with chronic opacity and possibly some small right-sided pleural effusion. --Family is at bedside, patient is arousable but does not follow any instructions. Gets extremely restless and agitated easily hence patient is receiving Dilaudid which seems to be working much better for this patient than benzodiazepines --possibly transfer the patient to a [facility] care specialty. 12/30/2023 Evaluated in follow-up in the intensive care unit. He remains on the mechanical ventilator. Status post tracheostomy. There has been a decrease in the amount of leakage around the J-tube site he continues on a gravity flow. TPN is infusing tube feedings remain on hold at this time. No bowel movement reported for the last 5 days. X-ray today reveals extensive pleural parenchymal opacities throughout the right with at least a moderate pleural effusion. Mild patchy densities left mid and lower lung are also similar. Blood work reveals a white blood cell count 11.5, hemoglobin 8.1, platelet count of 78, sodium 142, potassium 4.2, BUN of 42, creatinine of 1.22, Phos of 2.3, magnesium 1.9. Patient continues on IV anidulafungin IV Zerbaxa IV daptomycin. Patient is currently sedated with propofol and also Precedex which is currently on hold at this time. December 31, 2023: ICU. Patient continues to do poorly. On propofol 35 mics. Also getting IV Dilaudid and IV Ativan.. Telemetry shows sinus rhythm. J-tube feeding has been discontinued. Significant output through the Abarca bag and around the G-tube site. Patient also putting out through the RAYA drain on the right side. Getting TPN and lipids. Patient is antimicrobial include iv aniedulefungin, IV ceftolozane/tazobactam, IV daptomycin Advance care planning [October 31, 2023] I met with patient's at the bedside. Went through in detail with patient is overall very poor clinical status. Chances of any meaningful recovery next to minimal. I also did mention that patient in my opinion was not stable to go to chronic ventilator setting. I suggested comfort care/hospice. I did not feel and why all honesty that patient is benefiting any further from the treatment we are giving him in fact causing probably more suffering. I also spoke to patient's daughter outside in the waiting room. Total time spent about 50 minutes with over 30 minutes of discussion. Later I called Dr. Luther JIMENEZ the senior linux unix engineer after he received a text that family was expressing that some physician expressed he was doing better and giving hope. I spoke to nurse Lemos in the evening and she and Dr. JIMENEZ did go and talk to patient's family at the bedside later. January 01, 2024: ICU. FiO2 30 and a PEEP of 5. Continues to have increased drainage at the G-tube site. Wound VAC in place over the incision. RAYA drain continues to put out excretions. Good urine output. Drips include IV propofol at 20 mics, also getting IV Ativan and Dilaudid. Patient also keeping getting TPN lipids. Spoke to the patient's at the bedside. No further questions. I did speak to Dr. Irby from general surgery. Hence it is both our impression again that changing the tube will not make any difference to the bigger picture. And probably futile. Dr. Irby will be speaking to the family today. David from social media marketing specialist did ask about of family meeting. I did reiterate that I spoken at length to the a few times and also the daughter. Dr. Jimenez also spoke to the and Dr. Irby will be speaking with the today. Prognosis remains to be very poor. I did tell the in my opinion probably the patient is not r a candidate for long-term facility. Will senior linux unix engineer Dr. Jimenez determine if the patient is a candidate for long-term chronic ventilator facility. January 02, 2024: ICU. FiO2 30 PEEP of 5. Telemetry sinus rhythm. Drips include propofol at 20 mics. Patient getting TPN lipids. Receiving 1 unit of packed red blood cell. Patient was having a breakdown around the tracheostomy stoma site. With a cuff leak. G-tube site is continues to have increasing output. Wound VAC in place. RAYA drains also having increasing output. Patient sister and daughter from [place] from out of town. Earlier they spoke at length with Dr. alford from general surgery. Prognosis remains poor. January 03, 2024: ICU. FiO2 30 PEEP of 5. On propofol. 50 mics. Getting TPN lipids. Sinus rhythm. Wound VAC in place. Drainage around the j-tube site. RAYA drain continues to drain. Patient somewhat sedated. at the bedside. Later social media marketing specialist David inform me that the surgical team Dr. Irby has suggested possible you have [facility], to which family is trying to obtain transferred to. Per Dr. Jimenez note patient has been decline by long-term care twice. Prognosis remains poor. at the bedside. Had no questions. Brother Nathan is present. January 04, 2024: ICU. FiO2 30 PEEP of 5. Propofol was held this morning. Getting TPN lipids. Sinus rhythm. Wound VAC remains in place. Continues to have drainage around the J-tube. RAYA drain continues to have output. at the bedside. She had no questions. Antibiotics in place. January 05, 2024: ICU. FiO2 30 PEEP of 5. Audibly sounding congested. Getting TPN lipids. Sinus rhythm. Wound VAC in place. Drainage around J-tube site. RAYA output continues. No family at bedside. Getting antibiotics. Lethargic January 06, 2024: ICU. FiO2 30 PEEP of 5. Patient is been off propofol since yesterday. Does move his head about. Try to open his eyes sometimes. Sinus rhythm. Blood pressure is running high yesterday. Started on Cleviprex. Hydralazine is being added. Continue to get TPN lipids. J-tube site remains excoriated. Wound VAC in place. RAYA output about 40 to 50 cc is a 12-hour shift. Patient elder daughter at the bedside. Eraxis was discontinued on January 02. Daptomycin is being discontinued by ID. Continue ceftolo'szone. CT abdomen pelvis done today: 3.1 cm organized fluid collection within the rectovesicular space concerning for abscess. No change in right upper lung 4.9 cm fluid collection with a fluid level. For possible pulmonary abscess. Moderate size right lung base multiloculated hydropneumothorax possibly abscess. Additional areas of air bronchograms. January 07, 2024: ICU. FiO2 30 PEEP of 5. Patient was taken down for pigtail drainage of the right lung abscess. About 200 cc of pus was obtained. Nurse informed me when they told him about for the procedure a lot of pus gushed out from the tracheostomy site. Dr. Love at the bedside did a bronchoscopy. Some pus was aspirated. No obvious fistula was noted. Patient is being back on Cleviprex drip. TPN lipids. January 08, 2024: ICU. Patient was having severe bouts of coughing. Unable to maintain ventilation. Patient was put on Nimbex drip and propofol drip. TPN lipids continue. Has a right chest wall pigtail catheter 90 cc output in 12- hour shift. Drainage from around the J-tube site. RAYA drain continues Ahmet to have an output. Abdominal wound is high since with the wound VAC in place. Patient sedated. January 09, 2024: ICU. Patient is off propofol and Cleviprex. Does open eyes. RAYA drain. About 40 cc last 24 hours. J-tube site continues to have increased output. Requiring dressing change every so often. Wound VAC in place. Patient getting Dilaudid and Ativan. Telemetry shows sinus rhythm. 40 cc out of the pigtail drainage. Patient started on ciprofloxacin and tobramycin. Remains on TPN and lipids. Patient's eldest daughter and at the bedside. No new questions. January 10, 2024: ICU. Overnight patient had become asynchronous. Had to be put on Precedex drip. Hemoglobin dropped down to 6.6. Monitor blood ordered. RAYA output about 100 cc last 24 hours. Wound VAC remains in place. TPN lipid continues. Patient also has a leak in the right pigtail catheter. Sinus rhythm. Continues to have increased secretion at the G-tube site. Ventilator FiO2 30 and a PEEP of 5. at the bedside. Had no further questions. January 11, 2024: ICU. Patient remains on IV Precedex. TPN.'s RAYA output over 30 cc last 24 hours. Wound VAC remains in place. Sinus rhythm. FiO2 30 PEEP of 5. Pigtail with very little output. Spoke to Dr. Love who only spoke to the patient's at length. Gnosis poor. When I walked in patient's 2 daughters and the present. is very tearful crying hugging the patient. The daughter had no further questions January 12, 2024 Ahmet: ICU. Continues on IV Precedex. Getting TPN lipids. Wound VAC in place. Sensitive. FiO2 30 and a PEEP of 5. Patient's at the bedside. Had no questions. January 13, 2024: ICU. FiO2 30 PEEP of 5. Remains on Precedex 0.8 mg. Eyes open. Sometimes does track with head. Not moving limbs. Some decrease in output from the G-tube site. Wound VAC putting out about 100 cc every 12 hours. RAYA drain about 100 cc every [address] Russ met with the family earlier today. Patient's been made DNR. Telemetry sinus rhythm. Patient's and daughter at bedside. They have no questions January 14, 2024: ICU. FiO2 30. PEEP of 5. Patient is has eyes open and tracking. Urine output about 100 cc an hour. NG site output looks like gastric contents. RAYA site about 50 cc in the last 12 hours. Telemetry sinus rhythm. and daughter have asked for hospice consultation for informational visit. [facility]. I sat with them and the nurse and a full expression of the hospice involved involved. Several questions answered. Daughter does express that she would like to take the patient home. The other sibling will be coming on from [place] on Saturday. They want to hold on at least until then. January 15, 2024: ICU. FiO2 30 and a PEEP of 5. Getting CPAP today. Asynchronous better. J-tube site continues to have increase secretions. Sinus rhythm. Awake. Does move his head possibly to command. Remains on Precedex. Getting Dilaudid. Fair urine output. Has a air leak in the pigtail. Minimal output through the chest tube. RAYA drain continues to have an output. at the bedside. January 16, 2024: ICU. On the ventilator FiO2 30 and a PEEP of 5. Pressure support mode. Wound VAC remains in place. J-tube site continues to have output. RAYA drain putting out output. Remains on pressors Precedex and getting Dilaudid. Antibiotics per ID. Patient being planned to go home tomorrow with home hospice. at the bedside. Had no further questions. Being followed by social media marketing specialist David and home hospice team from [facility] The plan for tomorrow currently is as follows: -Hospice arranging for transport with portable ventilator, to home with family -Antibiotics as discussed with ID will be discontinued -Wound VAC to be removed prior to discharge per surgery -RAYA drain to remain in place with dressing changes at the J-tube site. Dressing changes at the incision site per surgery. -TPN lipids will be discontinued prior to discharge -Patient to be taken off Precedex by r senior linux unix engineer January 21, 2024: ICU. Ventilator FiO2 30 and a PEEP of 5. Precedex drip. Sinus rhythm. Does wake up and follow commands. Weak in the limbs. Very little output through the RAYA drain. Wound VAC in place. Requiring Dilaudid for pain control close to every 2 hours. Over the weekend patient and family dec ided not for hospice. Patient is now full code instructions. Looking at long- term placement. Patient on tobramycin and ciprofloxacin and Diflucan per ID. Patient and daughter at the bedside.. Physical therapy in the room for passive movements. Family being educated. Since yesterday patient has been on pressure support./CPAP. Getting TPN lipids. January 22, 2024: ICU. Patient was on CPAP this morning. Plan was to take him to trach only this afternoon. Getting IV Precedex. Awake. Moves his head to command. Was able to move his right arm. Wound VAC remains in place. Right c hest tube/pigtail catheter in place. Some air leak. Minimal output from the right RAYA drain. Secretions persist through the left J-tube site. at the bedside. Spoke to the social media marketing specialist David. Looking into long-term placement. 01/23/24 Patient is evaluated in the ICU at the bedside. Feels anxious today, precedex is being weaned. He is awake alert. He is edematous. Abdominal wound vac in place. Right chest tube/pigtail in place. 55 ML of drainage overnight. Right sided RAYA drain. J tube in place. On TPN. He is pending approval for [facility]. Blood work today reveals a sodium level of 131. Continues on IV Ciprofloxacin/ IV fluconazole. 01/24/2024 Patient remains in the intensive care unit as remains at the bedside. He was weaned off the Precedex today did receive a dose of Ativan this morning however his mood has much improved. Abdominal wound VAC in place with evidence of purulent drainage in the canister. He has had 15 mL of drainage overnight from the right sided chest tube. J-tube remains in place. He continues on TPN. He continues on IV ciprofloxacin and IV fluconazole with plans for repeat abdominal pelvis CT today by infectious disease and consider discontinuation of antibiotics afterwards. Sodium level today is 130. Still pending approval for discharge to LTAC versus [facility]. 01/25/2024 Patient remains in the intensive care unit he continues off IV Precedex at this time. Continues with TPN. Repeat chest abdomen pelvis CT completed yesterday which shows a decrease seen in the hydropneumothorax within the right lung base with drainage catheter there is no change in the bibasilar infiltrates and small left effusion. There is interval development of a dilated small bowel loop in the mid abdomen consistent with either a focal ileus or partial obstruction. There are findings suggestive of acute diverticulitis of the sigmoid colon with a small pericolic phlegmon abscess however is decreasing in the interval from compared in the prior study from 3.4 cm to 3 cm. There is moderate anasarca and the peritoneal dialysis catheter and small bowel drainage tube unchanged in position. Blood work today reveals a white blood cell count of 20.1, hemoglobin 8.3, sodium 131, BUN of 21, creatinine 0.66, magnesium 1.7. He is on IV Cipro. IV Flagyl was added today by infectious disease. Was made a full code at request of family. 01/26/2024 Patient remains in the ICU. More awake alert and oriented today. He continues on the trach collar. Sounds less congested. Continues on IV cipro and IV flagyl. White blood cell count better today at 16.3. Hgb 7.2. Sodium 130, potassium 3.4. Continues on TPN. 01/27/2024 Patient is seen in follow-up continues to be in the ICU with multiple consultations following. Family at the bedside and patient is more awake although continues with bronchial congestion and frequent suctioning with the trach collar. Patient remains off Precedex. Patient continues on antibiotics for possible lung abscess that was positive for Pseudomonas with a persistent air leak. Minimal output of the pigtail catheter noted. FiO2 is 40% trach collar maintained on 10 L oxygen. Patient continues on TPN and will adjust accordingly per dietary and pharmacy. Overall prognosis remains extremely poor. Patient remains full code. Per nursing staff patient was denied from [facility] with case management/social work following. 01/28/2024 Patient is eval in follow-up today in the intensive care unit. He had an axillary temp 101.6 for this reason a septic protocol was done including urinalysis blood cultures and viral panel. He remains on IV cipro and IV flagyl. Airleak to the chest tube remains to suction. He continues on a trach collar 40% FiO2 with oxygen at 8 L. He continues on TPN and lipids adjustments per dietary and pharmacy. We are currently not using the J-tube for feedings at this time. He has a wound VAC in place to the midline abdominal incision. He is more awake alert and oriented and less agitated. Sodium level today is 133. Renal function is within normal limits. 01/29/2024 Patient is evaluated today in the ICU with family at the bedside. He continues to have elevated temps. He is more lethargic. White count 20.2 today. Septic work up started. Repeat urinalysis not overly suggesting of infection. Viral panel negative. Chest xray today reveals patchy and confluent bilateral airspace disease similar to slightly worsened. Right-sided pleural catheter demonstrated. There is similar small right pleural effusion. He was started on IV vancomyin, IV meropenem and IV metronidazole. The cipro has been discontinued. Lactic acid 2.3. Sodium 134, renal function normal. Hgb 7.6. Tube feedings remain on hold. Not safe to restart and he continues on TPN/Lipids. 01/30/2024 Patient evaluated today in follow up. Remains in the ICU. Underwent bronchoscopy and repair of a tear in the tracheostomy cuff. Deep sputum culture pending. Patient remains on the mechanical ventilator with ABGs today showing pH level of 0.33, pCO2 of 59, pO2 of 152, HCO3 of 41, total CO2 of 33, hemoglobin 6.6. Lactic acid has normalized. White blood cell count 19.3 today hemoglobin 7.3. Patient is continued on IV propofol as well as backs. Continues on antibiotics in the form of IV vancomycin, IV meropenem, IV metronidazole. Continues on TPN lipids. Chest xray improved throughout both lung ramirez with mild improved aeration at the right lung base. No pneumothorax present. Right-sided chest tube remains in place to suction. 01/31/2024 Patient evaluated today in follow up in the intensive care unit. Remains on the mechanical ventilator, 50% FiO2. Family at the bedside and hoping for extubation today. Continues on TPN/Lipids. Labs today reveal white blood cell count 15.4, hgb 7.0, platelet count 169. Sodium 136, potassium 5.4. BUN 29, creatinine 0.61. Chest xray today reveals ongoing multifocal patchy and confluent airspace disease. A small to moderate right pleural effusion may be slightly increased. Sputum culture from bronchoscopy continues to show pseudomonas. Chest tube remains in place. on IV vancomycin and IV meropenem. 02/01/2024 Evaluated today in follow-up in the intensive care unit. Patient remains on mechanical ventilator with a 50% FiO2. His repeat sputum cultures from the bronchoscopy continue to show Pseudomonas. He continues on IV vancomycin and IV meropenem infectious diseases following closely. He continues with a wound VAC to his midline abdominal incision. Per surgery they feel that the fistula from his J-tube is mature he is currently off of tube feedings at this time though continues on TPN lipids. White blood cell count today is 15.3, hemoglobin 7.2, sodium 140, potassium 5.0, BUN of 33, creatinine 0.59. 2.0 mL of drainage over the last couple days. His chest x-ray today reveals no change in the marked diffuse cardiopulmonary process including scattered interstitial and partially consolidative infiltrates and bilateral pleural effusions which remain unchanged as compared to prior. 02/02/2024 Patient is evaluated today in follow-up in the intensive care unit. Patient remains in the mechanical ventilator with an FiO2 of 50%. His repeat sputum cultures are showing Pseudomonas now with drug resistance Pseudomonas is susceptible to amikacin and tobramycin with intermediate susceptibility to Zosyn and gentamicin. Antibiotics have been adjusted to Tobramycin and IV zosyn. February 03, 2024: I resumed care of the patient today. ICU. I was away last week. Patient had a tracheostomy leak. Underwent a bronchoscopy. And went back on the ventilator. Currently FiO2 5040% and a PEEP of 5. Drips include Precedex. Also getting TPN lipids. Patient getting Dilaudid 0.5 mg every 3 hours. And also Toradol. Good urine output. Right-sided RAYA drain was removed on January 27. Chest tube drain has minimal output. Patient continues to leak from the left-sided G-tube site. Patient's abdomen is rather distended. Surgery will be evaluating the patient today. Patient's and daughter at the bedside. That questions regarding the abdomen will defer the same to surgical team. Patient is extremely high risk for any surgery. Spoke to David the manager case management. As of now LTAC had declined the patient. Patient also has a stage III on the buttock. Patient has a Shiley #8 tracheostomy tube. Checks x- ray today shows extensive interstitial and patchy bilateral infiltrates. New prominent air density below the diaphragm no peritoneum was to be excluded. Patient's bronchoscopy results show multidrug-resistant Pseudomonas. Patient has been treated with Zosyn and tobramycin-currently getting both.. Patient is awake. Attempts to talk. Able to follow commands. February 04, 2024: ICU. and the daughter at the bedside. is rather tearful. Yesterday evening Dr. Irby from surgery said surgical intervention highly risky including poor outcome. Second opinion was obtained from Dr. Pompa this morning. Also recommended possible hospice. Dr. Russ from pulmonary also spoke to the family. Prognosis remains poor. CT scan abdomen yesterday during showed large pneumoperitoneum. NG tube to suction. On propofol. Patient sedated. Sinus rhythm. Right-sided chest tube remains in place. J-tube site to gravity drainage. Getting TPN lipids. I also suggested comfort measures. Active Medications Albuterol/Ipratropium (Ipratropium-Albuterol 3 Ml Neb) 3 ml INHALATION RT-QID [facility] Last Admin: 02/04/24 12:50 Dose: 3 ml Albuterol/Ipratropium (Ipratropium-Albuterol 3 Ml Neb) 3 ml INHALATION RT-Q2H PRN PRN Reason: Shortness Of Breath Or Wheezing Last Admin: 02/02/24 04:31 Dose: 3 ml Benzocaine (Benzocaine [place] 1 Can) 1 spray MUCOUS MEM TID PRN; Protocol PRN Reason: Mouth Irritation Bisacodyl (Bisacodyl 10 Mg Supp) 10 mg RECTAL DAILY NIRMAL Last Admin: 02/04/24 08:24 Dose: Not Given Dextrose/Water (Dextrose 50% Syringe 50 Ml) 25 ml IVP PER PROTOCOL PRN; Protocol PRN Reason: Hypoglycemia Last Admin: 01/03/24 06:18 Dose: 25 ml Dextrose/Water (Dextrose 50% Syringe 50 Ml) 50 ml IVP PER PROTOCOL PRN; Prot ocol PRN Reason: Hypoglycemia Last Admin: 12/25/23 18:03 Dose: 50 ml Hydralazine HCl (Hydralazine Hcl 20 Mg/Ml 1 Ml Vial) 10 mg IVP Q6HR PRN PRN Reason: SBP >140 Last Admin: 02/03/24 13:10 Dose: 10 mg Hydromorphone HCl (Hydromorphone 0.5 Mg/0.5 Ml Syringe) 0.5 mg IVP Q3HR PRN PRN Reason: Pain Last Admin: 02/03/24 21:36 Dose: 0.5 mg Piperacillin Sod/Tazobactam (Sod 3.375 gm/ Sodium Chloride) 100 mls @ 25 mls/hr IVPB Q8HR [facility]; Protocol Last Admin: 02/04/24 08:26 Dose: 25 mls/hr Parenteral Vitamin Supplement 10 ml/ Zinc/Copper/Manganese/Selenium 1 ml/ Sodium Acetate 44 meq/ Magnesium Sulfate 1.25 gm/ Potassium Phosphate 3 mmol/ Sodium Chloride 60 meq/Calcium Gluconate 1 gm/ Amino Acids/Dextrose 1,061.5 mls @ 85 mls/hr IV .BY DURATION NIRMAL Stop: 02/05/24 03:59 Last Admin: 02/04/24 07:52 Dose: 85 mls/hr Sodium Acetate 44 meq/Magnesium Sulfate 1.25 gm/Potassium Phosphate 3 mmol/Sodium Chloride 60 meq/Calcium Gluconate 1 gm/ Amino Acids/Dextrose 1,050.5 mls @ 85 mls/hr IV .BY DURATION [facility] Stop: 02/05/24 03:59 Last Admin: 02/03/24 23:06 Dose: Not Given Propofol 1,000 mg/ IV Solution 100 mls @ 9.63 mls/hr IV .[id number] [facility]; Protocol Last Admin: 02/04/24 12:52 Dose: 45 mcg/kg/min, 28.89 mls/hr Tobramycin Sulfate 160 mg/ (Sodium Chloride) 104 mls @ 104 mls/hr IVPB Q24H [facility] Last Admin: 02/04/24 09:30 Dose: 104 mls/hr Parenteral Vitamin Supplement 10 ml/ Zinc/Copper/Manganese/Selenium 1 ml/ Sodium Acetate 50 meq/ Magnesium Sulfate 1.5 gm/ Potassium Phosphate 3 mmol / Sodium Chloride 72 meq/Calcium Gluconate 1 gm/Potassium Chloride 40 meq/Amino Ac ids/Dextrose 1,088 mls @ 45 mls/hr IV .Q24H [facility] Insulin Aspart (Insulin Aspart (Novolog) 100 Unit/Ml Vial) 0 unit SQ 0000,0600,1200,1800 [facility]; Protocol Last Admin: 02/04/24 12:22 Dose: 2 unit Iopamidol (Iopamidol Contrast (Oral Use) Vial) 30 ml PO Q60M PRN PRN Reason: CT Scan Stop: 02/04/24 15:31 Last Admin: 02/03/24 16:37 Dose: 30 ml Ketorolac Tromethamine (Ketorolac 15 Mg/Ml 1 Ml Vial) 15 mg IVP Q6HR PRN PRN Reason: Pain Stop: 02/06/24 17:52 Last Admin: 02/04/24 10:01 Dose: 15 mg Lidocaine HCl (Lidocaine 2% (Pf) 20 Mg/Ml 5 Ml Vial) 60 mg INHALATION Q6HR PRN PRN Reason: Dyspnea Last Admin: 02/01/24 00:29 Dose: 60 mg Lorazepam (Lorazepam 2 Mg/Ml Inj) 1 mg IV Q6HR PRN PRN Reason: Anxiety Last Admin: 02/03/24 13:49 Dose: 1 mg Miscellaneous Information (Phosphorus Replacement Protoco 1 Each Misc) 1 each MISCELLANE DAILY PRN; Protocol PRN Reason: Per Protocol Miscellaneous Information (Magnesium Replacement Protocol 1 Each Misc) 1 each MISCELLANE DAILY PRN; Protocol PRN Reason: Per Protocol Miscellaneous Information (Potassium Replacement Protocol 1 Each Misc) 1 each MISCELLANE DAILY PRN; Protocol PRN Reason: Per Protocol Multi-Ingred Cream/Lotion/Oil/Oint (Hydrophilic Cream 180 Gm Tube) 1 applic TOPICAL BID NIRMAL; Protocol Last Admin: 02/04/24 08:44 Dose: 1 applic Multi-Ingredient Ointment (Zinc Oxide 20% Oint 28.4 Gm Tube) 1 applic TOPICAL BID PRN; Protocol PRN Reason: Skin Irritation Naloxone HCl (Naloxone 0.4 Mg/Ml 1 Ml Vial) 0.2 mg IV Q2M PRN PRN Reason: Opioid Reversal Ondansetron HCl (Ondansetron 4 Mg/2 Ml Vial) 4 mg IVP Q6HR PRN PRN Reason: Nausea And Vomiting Last Admin: 01/23/24 17:28 Dose: 4 mg Pantoprazole Sodium (Pantoprazole 40 Mg/10 Ml Vial) 40 mg IVP BID NIRMAL Last Admin: 02/04/24 08:26 Dose: 40 mg Petrolatum (Zinc Oxide Paste (Z-Guard) 1 Applic) 1 applic TOPICAL BID [facility]; Protocol Last Admin: 02/04/24 08:44 Dose: 1 applic Past medical history to include: GERD Social history: . No smoking. Physical examination: VITAL SIGNS: 99.1, 82, 99.1, 82, 20, 122 x 78, 100% on the ventilator GENERAL: Sedated EYES: Pupils equal. , tracking Conjunctiva edouard l. HEENT: External appearance of nose and ears normal, tracheostomy-. NG tube to intermittent suction NECK: JVD unable to assess; masses not palpable. HEART: First and second heart sounds are normal; edema, present LUNGS: Respiratory rate increased, decreased breath sounds right chest wall pigtail catheter ABDOMEN: Soft, some tenderness. Liver spleen not palpable, no masses palpable..jejunostomy tube-dressing in place, . RAYA drain. Incision with stitches with - wound VAC PSYCH: Unable to assess NEURO: Sedated. INVESTIGATIONS, reviewed in the clinical context: CT abdomen pelvis [February 02] massive pneumoperitoneum with possibly right lower quadrant large bowel and/or small bowel perforation. Hyperemia and wall thickening of the cecum and ascending colon. February 03: White count 8.6 hemoglobin 7.8 platelets 354 potassium 3.1 BUN 39 creatinine 0.62 Sputum [January 21] Pseudomonas aeruginosa-multiple drug-resistant February 02: White count 16.5 hemoglobin 8.6 platelets 385 sodium 142 potassium 3.1 BUN 37 creatinine 0.65 January 21: White count 14.9 hemoglobin 7.9 platelets 399 potassium 3[address] abdomen pelvis [January 05]: 3.1 cm organized fluid collection within the rectovesicular space concerning for abscess. No change in right upper lung 4.9 cm fluid collection with a fluid level. For possible pulmonary abscess. Moderate size right lung base multiloculated hydropneumothorax possibly abscess. Additional areas of air bronchograms. January 05: White count 10.6 hemoglobin 7.6 platelets 111 sodium 137 potassium 3.5 BUN 44 creatinine 0.95 January 03: White count 13.4 hemoglobin 8.1 platelets 95 potassium 5.2 creatinine 1.1 albumin 1.8 Sputum culture [December 24] Citrobacter freundii, Pseudomonas aeruginosa Blood culture [December 24] Staphylococcus pettenkoferi December 24: White count 1.5 hemoglobin 8.2 platelets 106 potassium 3.8 BUN [address] chest abdomen without contrast [December 16] right upper lung cavitary lesion with air-fluid level in the posterior aspect and a larger cavitary lesion possibly within the lung parenchyma itself. Extending down towards the diaphragm additional airspace opacities in the left lung base. December 09: White count 26.1 hemoglobin 8.6 platelets 154 potassium 4.1 BUN 86 creatinine 3.31. Hemoglobin this morning was 6.6 prior to transfusion EEG-evidence of generalized cerebral dysfunction and sporadic intermittent higher amplitude sharply contoured waves mainly bifrontal. Showing cortical irritability. 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 Serosal fibrous adhesions. Viable margins. Sputum culture: [November 25]: Citrobacter freundii. Pseudomonas aeruginosa November 20: White count 14.4 hemoglobin 8.8 platelets 229 potassium 4.1 BUN [address] scan abdomen [November 19] possible small bowel obstruction Stool: C. difficile negative November 15: WBC 13 hemoglobin 7.7 platelets 248 potassium 4.3 creatinine 0.87 2D echo: EF 55 to 60%. Kidneys bladder: Unremarkable November 13: White count 12 hemoglobin 6.9 platelets 276 potassium 4.4 creatinine 1.21 magnesium 1.8 iron 6 TIBC 365% saturation 1.64 transferrin 261 ferritin 34.6 B12 569 folate 4.4 November 11: Creatinine 0.86 EGD: Large amount of retained solid liquid food noted in the stomach. Large superficial gastric antral ulceration involving most of the antrum extending into the pylorus causing pyloric stenosis. Biopsies were obtained. Chest x-ray film personally reviewed by me-scattered infiltrates Assessment plan: -Aspiration and gram-negative bacterial pneumonia a bilateral initially from retained gastric contents mostly food and liquids, causing acute hypoxic respiratory failure: On presentation: Subsequent bacterial pneumonia and lung abscess sputum culture November 25: Citrobacter freundii, Pseudomonas aeruginosa. December 13: Klebsiella oxytoca, Pseudomonas aeruginosa. December 29: Multidrug-resistant Pseudomonas aeruginosa IV meropenem-, IV Zosyn.IV ceftolozane/tazobactam, IV daptomycin, tobramycin- all discontinued Currently getting IV Zosyn and tobramycin -Large pneumoperitoneum likely from perforation. Has been told by Dr. Peñaloza and Dr. Pompa from surgery/[second opinion]. Extremely high risk for any surgery. Very poor outcome. Suggest comfort measures -Intermittent asynchronous with the ventilator. -January 28 patient underwent tracheostomy tube exchange and bronchoscopy with lavage by Dr. Love for a leak around the tracheostomy tube. Patient is a #8 Shiley tracheostomy tube. An air leak was resolved Previously had a leak. Currently resolved -Pain, multifactorial Getting Dilaudid every 3 hours with Toradol -Sepsis with septicemia from above Patient received multiple antibiotics -Right l lung abscess, pigtail catheter placed January 07, 2024. Initially about 200 cc of pus obtained. During the procedure large amount of pus poured out of the tracheostomy site when patient was rolled on the left side. Status post bronchoscopy with some lavage on 01/07/2024 - lung abscess larger 1 on the right side-patient cultures are growing Pseudomonas and Klebsiella oxytoca: , Received other antibiotics. Currently on Zosyn and tobramycin -Acute pulmonary edema and fluid overload from hypoalbuminemic state and fluids from IV.:: Has been getting Lasix and dialysis: Both held -Altered mentation. Possibly encephalopathy. Could be delirium.: Improvement CT brain [December 06] nothing acute Neurology following EEG-evidence of generalized cerebral dysfunction and sporadic intermittent higher amplitude sharply contoured waves mainly bifrontal. Showing cortical irritability. Keppra was started on December 07 -Critical care poly- Pedro neuropathy: Slow to respond PT OT -Gallstones, asymptomatic -Small l bowel perforation at site of jejunostomy tube tip with balloon..: Portion of small bowel resected. On November 24. New J-tube was placed.- drainage to gravity:-Now discontinued December 19: J-tube blocked. J-tube replaced on December 20 over wire December 21: Leaking around the J-tube site. Feeding held December 23: J feeding was started yesterday evening but again started leaking increasingly around the J-tube site-feeding held again December 24: J-tube feeding has been held. Patient is currently having increased drainage from the J-tube site -Acute kidney injury. Possible ATN from hypotensive shock: Resolved Renal ultrasound unremarkable. Started on renal replacement therapy on November 28. Last hemodialysis on December 17. Being followed by an nephrology. Good urine output. -Nutrition Jejunostomy tube placed November [address] Ewing Received TPN-this was discontinued. TPN lipids restarted on December 24 -Midline abdominal incision wound dehiscence Wound VAC in place -Acute recurrent atrial fibrillation-converted to sinus rhythm Received IV amiodarone. Cardiology following -Acute hypoxic respiratory failure from aspiration pneumonia, status post ventilator assisted: Reintubated November 25. FiO2 35 PEEP of 5 Tracheostomy tube-by Dr. Zepeda on December 09 Tracheostomy tube changed to #8 Shiley on January [address] Love -Septic shock, recovered -Hypertension, recurrent Had received Cleviprex. Hydralazine added -Intermittent hypotension: Corrected Intermittent use of Levophed. 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 Also anemia of blood draw. Iron deficiency anemia Received total of 8 units of blood IV iron. -Severe thrombocytopenia. Would consider coagulation disorder secondary to infection., In the setting of underlying lymphoma.: Fluctuating with infection: Improved Hematology following. 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 difficile ruled out. -Large superficial gastric antral ulceration involving the gastric antrum extending into the pylorus with gastric outlet obstruction. 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 -DNR made on January 12. Now full code with instructions on January 17. Patient is full code now Prognosis very poor. Multiple consultants after the family regarding comfort measures. Continue current treatment plan. Past Medical History Past Medical History: GERD/Reflux History of Any Multi-Drug Resistant Organisms: None Reported Past Surgical History: Heart Catheterization Additional Past Surgical History / Comment(s): colonsocopy,spinal injection, Past Anesthesia/Blood Transfusion Reactions: No Reported Reaction Past Psychological History: No Psychological Hx Reported Smoking Status: Never smoker Past Alcohol Use History: None Reported Past Drug Use History: None Reported
--- NOTE | 2024-02-04 16:03 | P.PN ---
Subjective Progress Note Date: 02/04/24 Principal diagnosis: Reason for follow-up is pneumonia and diverticulitis Patient is 73-year-old with male initial presentation to the hospital on 11/12/2023 after the patient did have aspiration while undergoing elective endoscopy, diagnosed with a non-Hodgkin lymphoma subsequently did have exploratory laparotomy for perforated small bowel, abdominal washout and feeding jejunostomy tube patient did require dialysis catheter placement for dialysis during this hospital stay which was subsequently discontinued, and tracheostomy for respiratory failure. On today's evaluation that is 02/04/2024, Patient did spike a fever of 100.1 F at midnight and a low-grade fever this known patient remains to be intubated on the vent through the trach FiO2 stable at 40% hemodynamically stable did have NG no vomiting or diarrhea has been reported. Patient white count is 18.6 creatinine 0.62 did have abdominal pelvis CT completed yesterday with massive pneumoperitoneum possible source right lower quadrant large bowel and or small bowel Objective - Vital Signs Vital signs: Vital Signs Temp 99.1 F 02/04/24 12:00 Pulse 83 02/04/24 12:50 Resp 20 02/04/24 12:00 BP 122/78 02/04/24 12:00 Pulse Ox 100 02/04/24 12:00 FiO2 40 02/04/24 12:53 Intake & Output 02/03/24 02/04/24 02/04/24 18:59 06:59 18:59 Intake Total 1410 5089.146 9354.414 Output Total 1410 785 600 Balance 0 573.648 6468.414 Weight 107 kg 105.4 kg 105.4 kg Intake: IV 240 240 504 0.9 Normal Saline @ KVO 240 240 120 Fat Emulsion 20% 250 ml 84 In Empty Bag 1 bag @ 21 mls/hr IV TuThSa@0900 [facility] Rx#:[id number] Piperacillin-Tazobactam 3 100 .375 gm In Sodium Chloride 0.9% 100 ml @ 25 mls/hr IVPB Q8HR [facility] Rx# :[id number] Potassium Chloride 20 meq 100 In Water For Injection 1 100ml.bag @ 50 mls/hr IVPB Q2H [facility] Rx#: [id number] Tobramycin Sulfate 160 mg 100 In Sodium Chloride 0.9% 100 ml @ 104 mls/hr IVPB Q8HR [facility] Rx#:[id number] Intake, IV Titration 100 281.920 7156.414 Amount Dexmedetomidine/0.9% NaCl 100 (Pmx) 400 mcg In Empty Bag 1 bag @ 0.2 MCG/KG/HR 5.065 mls/hr IV .[id number] [facility] Rx#:[id number] Mvi, Adult No.4 with Vit 1037 K 10 ml Trace (Conc-1Ml/ Dose) 1 ml Sodium Acetate 44 meq Magnesium Sulfate gm 1.25 gm Potassium Phosphate 3 mmol Sodium Chloride 4Meq/ml Vial 60 meq Calcium Gluconate 1 gm In Amino Acids 5 %/ Dextrose 20 % 1,000 ml @ 85 mls/hr IV .BY DURATION [facility] Rx#:[id number] propofoL 1,000 mg In 210.424 184.414 Empty Bag 1 bag @ 15 MCG/ KG/MIN 9.63 mls/hr IV . [id number] [facility] Rx#:[id number] TPN/PPN 1070 935 390 TPN 1070 935 390 Output: Chest Tube Drainage 0 0 0 Chest Tube Right 0 0 0 Drainage 250 Medial Abdomen 250 Urine 1410 785 350 Other: Voiding Method Indwelling Catheter Indwelling Catheter Indwelling Catheter # Bowel Movements 1 1 ABP, PAP, CO, CI - Last Documented Arterial Blood Pressure 173/76 - Exam GENERAL DESCRIPTION: An elderly male intubated with trach RESPIRATORY SYSTEM: Unlabored breathing , coarse breath sounds anteriorly HEART: S1 S2 regular rate and rhythm , ABDOMEN: Soft , abdominal distention and tenderness EXTREMITIES: No edema feet - Labs CBC & Chem 7: 02/04/24 06:09 02/04/24 06:09 Labs: Abnormal Lab Results - Last 24 Hours (Table) 02/03/24 02/03/24 02/04/24 Range/Units 15:36 15:36 00:37 WBC 17.0 H (3.8-10.6) k/uL RBC 2.65 L (4.30-5.90) m/uL Hgb 8.0 L (13.0-17.5) gm/dL Hct 25.3 L (39.0-53.0) % RDW 16.2 H (11.5-15.5) % Neutrophils # 14.1 H (1.3-7.7) k/uL ABG pH (7.35-7.45) ABG pO2 (83-108) mmHg ABG HCO3 (21-25) mmol/L ABG Total CO2 (19-24) mmol/L ABG O2 Saturation (94-97) % Hemoglobin (13.0-17.5) gm/dL Potassium 3.3 L (3.5-5.1) mmol/L BUN 40 H (9-20) mg/dL Creatinine 0.60 L (0.66-1.25) mg/dL Glucose 206 H (74-99) mg/dL POC Glucose (mg/dL) 182 H (70-110) mg/dL Calcium 7.6 L (8.4-10.2) mg/dL Alkaline Phosphatase (38-126) U/L Albumin (3.5-5.0) g/dL 02/04/24 02/04/24 02/04/24 Range/Units 05:30 06:09 06:09 WBC 18.6 H (3.8-10.6) k/uL RBC 2.59 L (4.30-5.90) m/uL Hgb 7.8 L (13.0-17.5) gm/dL Hct 24.4 L (39.0-53.0) % RDW 16.2 H (11.5-15.5) % Neutrophils # 13.7 H (1.3-7.7) k/uL ABG pH 7.51 H (7.35-7.45) ABG pO2 109 H (83-108) mmHg ABG HCO3 34 H (21-25) mmol/L ABG Total CO2 35 H (19-24) mmol/L ABG O2 Saturation 99.3 H (94-97) % Hemoglobin 7.4 L (13.0-17.5) gm/dL Potassium 3.1 L (3.5-5.1) mmol/L BUN 39 H (9-20) mg/dL Creatinine 0.62 L (0.66-1.25) mg/dL Glucose 163 H (74-99) mg/dL POC Glucose (mg/dL) (70-110) mg/dL Calcium 7.9 L (8.4-10.2) mg/dL Alkaline Phosphatase 222 H (38-126) U/L Albumin 2.3 L (3.5-5.0) g/dL 02/04/24 02/04/24 Range/Units 07:06 12:03 WBC (3.8-10.6) k/uL RBC (4.30-5.90) m/uL Hgb (13.0-17.5) gm/dL Hct (39.0-53.0) % RDW (11.5-15.5) % Neutrophils # (1.3-7.7) k/uL ABG pH (7.35-7.45) ABG pO2 (83-108) mmHg ABG HCO3 (21-25) mmol/L ABG Total CO2 (19-24) mmol/L ABG O2 Saturation (94-97) % Hemoglobin (13.0-17.5) gm/dL Potassium (3.5-5.1) mmol/L BUN (9-20) mg/dL Creatinine (0.66-1.25) mg/dL Glucose (74-99) mg/dL POC Glucose (mg/dL) 177 H 169 H (70-110) mg/dL Calcium (8.4-10.2) mg/dL Alkaline Phosphatase (38-126) U/L Albumin (3.5-5.0) g/dL Assessment and Plan (1) Sepsis Current Visit: Yes Status: Acute Code(s): A41.9 - SEPSIS, UNSPECIFIED ORGANISM SNOMED Code(s): 00974866 (2) Pneumonia Current Visit: Yes Status: Acute Code(s): J18.9 - PNEUMONIA, UNSPECIFIED ORGANISM SNOMED Code(s): 402348692 (3) Bacteremia Current Visit: Yes Status: Acute Code(s): R78.81 - BACTEREMIA SNOMED Code(s): 8531000 (4) Peritonitis Current Visit: Yes Status: Acute Code(s): K65.9 - PERITONITIS, UNSPECIFIED SNOMED Code(s): 32165269 Plan: 1 the patient did have a new fever also noticed to have worsening of his respiratory status concerning for pneumonia 2repeat blood culture have been negative sputum culture from 1127 is growing drug-resistant Pseudomonas aeruginosa sensitive only to tobramycin amikacin intermediate sensitive to Zosyn patient also have a bronchoscopy on 1128 that specimen is growing Pseudomonas with multidrug resistant pattern and intermediate to Zosyn sensitive to amikacin and tobramycin 3patient did have low-grade fever and also noted to have significant abdominal distention patient did have a CT abdominal pelvis with evidence of large pneumoperitoneum concerning for possible large/small bowel perforation patient has been evaluated by Dr. subramanian for a second opinion from surgical standpoint and has been considered high risk for any surgical intervention patient will be continued on Zosyn and tobramycin overall prognosis remains to be guarded Dictation was produced using [employer] dictation software. please excuse any grammatical, word or spelling errors. Time with Patient: Less than 30
[2024-02-04 18:01] LABS: Glucose,Whole Blood 143 mg/dL (70-110)
--- NOTE | 2024-02-04 20:23 | P.PN ---
Progress Note - Text Progress Note Date: 02/04/24 CHIEF COMPLAINT: Abdominal pain HISTORY OF PRESENT ILLNESS: Patient shon in the ICU and on mechanical ventilation. Patient had a CT-AP which showed free air with likely cecal perforation. Patients vitals have been stable. He is not requiring pressor support. Patient was seen and examined with Dr. Irby PHYSICAL EXAM: VITAL SIGNS: Reviewed. GENERAL: frail, weak HEENT: Tracheostomy site clean dry and intact ABDOMEN: Distended. Softer. Wound VAC intact. J-tube with minimal bilious drainage noted on bandage. ASSESSMENT: 1. Pneumoperitoneum with Likely Cecal Perforation 2. 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 Status post J-tube placement and revision for small bowel obstruction 3. Abdominal wound dehiscence status post wound VAC placement 4. Status post tracheostomy PLAN: -I had an extensive conversation with patient's family. From our surgical groups perspective two treatment options are nonoperative intervention vs Hospice. I explained to the family that patient is poor candidate for surgery due to poor wound healing, likely small bowel injuries with enterotomies/fistulas and poor nutritional status. I also did explain that the patients vitals have remained stable and treating this perforation like a contained perforation with bowel rest and antibitiotics is the best course of action. I did explain to family we will continue to follow the patient and make recommendations. I answered all their questions in detail. -Refer to Dr Pompa's Notes for Surgical Second Opinion Dick Ewing DO [facility] [phone]
[2024-02-05 00:32] LABS: Glucose,Whole Blood 133 mg/dL (70-110)
[2024-02-05] MEDS: [UNRECOGNIZED DRUG - REMARK] IV SCH (04:01)
[2024-02-05 05:13] LABS: ABG Base Excess 7.3 mmol/L; ABG HCO3 31 mmol/L (21-25); ABG Oxygen Saturation 98.5 % (94-97); ABG PCO2 40 mmHg (35-45); ABG PO2 91 mmHg (83-108); ABG TCO2 32 mmol/L (19-24); Allen Test Performed? Yes
[2024-02-05 05:39] LABS: Glucose,Whole Blood 116 mg/dL (70-110)
--- NOTE | 2024-02-05 09:06 | XR ---
EXAMINATION TYPE: XR chest 1V portable DATE OF EXAM: 02/05/2024 4:54 AM COMPARISON: 02/03/2024 CLINICAL INDICATION: Male, 73 years old with history of mechanical ventilation, , FINDINGS: ET and NG tubes are satisfactory. Right anterior chest wall injection port with catheter ti p at the inferior cavoatrial junction. Left PICC tip appears to be within the right atrium. Right-tereza ed pleural catheter noted. Heart rate is borderline enlarged. Diffuse interstitial and patchy opaciti es persist. IMPRESSION: Ongoing diffuse interstitial and patchy bilateral opacities. Right-sided pleural catheter noted. Righ t chest wall injection port tip remains near the IVC. [facility], , 02/05/2024 9:04 AM
[2024-02-05 11:47] LABS: Glucose,Whole Blood 114 mg/dL (70-110)
--- NOTE | 2024-02-05 11:48 | P.PN ---
Subjective Progress Note Date: 02/05/24 Principal diagnosis: Acute hypoxic respiratory failure requiring intubation mechanical ventilation secondary to aspiration. This is a 73-year-old white male with history of chronic abdominal pain for the last 8 months has been treated with Protonix 40 mg daily for the last 3 months with no improvement. Patient had a 22 pound weight loss in the last [address] of the abdomen and pelvis 3 weeks ago showed thickening of the antral wall with pathological adenopathy posterior to the stomach suspicious of neoplasm. Today the patient underwent elective upper endoscopy to evaluate further, patient received IV sedation by anesthesia endoscope was inserted into the mouth, esop hagus was intubated without any difficulty there was evidence of large amount of liquid and solid food noted in the stomach suggestive of gastric outlet obstruction. Scope could not be advanced through the pylorus, however in the prepyloric area there was a large superficial ulceration identified with multiple biopsies were done from this area. The body cardia and fundus could not adequately visualize because of large amount of retained food in the stomach. Scope was withdrawn back to the stomach and upon careful examination the mucosa of the antrum body and cardia as well as the fundus appeared normal. Procedure was being performed and biopsies were done patient threw up and subsequently became hypoxic there was clearly evidence of witnessed aspiration anesthesia intubated the patient, procedure was terminated, and the patient was transferred to the ICU, this consult was initiated. Patient is now on assist- control rate of 20 tidal volume 500 FiO2 70% PEEP of 10 ABG is pending, earlier ABG showed profound hypoxia patient is on propofol at 50 mcg/kg/min, next ABG is pending. Chest x-ray showed chronic changes without evidence of acute pulmonary disease. 01/10/2024, the patient is on low-dose Precedex. Currently comfortable, sensitive to mechanical ventilator. Output from the pigtail has dropped and the patient continues to have a positive airleak. The chest x-ray shows bilateral consolidation worse on the right and there is a small right apical pneumothorax. Pigtail catheter is in a good location. Blood gas showed a pH of 7.48 with a pCO2 of 35 and a pO2 of 83. He is on assist-control mode with rate of 20, tidal volume of 600, FiO2 30% with a PEEP of 5. RAYA drain output is serosanguineous. TPN is at 90 cc an hour. Fluid balance is -700 cc. The white cell count is at 15.4, hemoglobin is at 6.7 and the patient was given a unit of packed RBC and a platelet count is 188. Electrolytes show a BUN of 46 with a creatinine of 0.7, sodium of 135, potassium level of 3.3. Antibiotics has been modified to a combination of ciprofloxacin and tobramycin as the patient showed quinolone sensitive Pseudomonas in the sputum and in the drain the abscess from the right lung. On 02/01/2024, the patient is still on propofol and currently is off Nimbex. Propofol is running at 30 mcg/kg/min. He remains on assist-control mode of mechanical ventilation at rate of 28, tidal volume of 500, FiO2 50% with a PEEP of 6. Blood gases showed a pH of 7.44 with a pCO2 of 53 and pO2 of 115. Chest x-ray shows bilateral consolidation. No significant cavitation. No pneumoth orax. There is a right-sided pigtail catheter in place. No significant change in the patient has diffuse bilateral pneumonia. Bronchoscopy was done on 01/30/2024 was consistent with Pseudomonas aeruginosa. The patient remains on a combination of meropenem, vancomycin and Flagyl. He is afebrile. Hemodynamically stable. Cardiac rhythm is sinus. Continues to have leaks around his tracheostomy tube and I decided to exchange tracheostomy tube to XLT longer tracheostomy tube to prevent post leaks. The patient remains on TPN for nutritional support. Fluid balance is -2.3 L as the patient received diuretics yesterday. Continues to have edema in all 4 extremities. The white cell count is lower at 15.3 with a hemoglobin of 7.2 and a platelet count of 408. Sodium is at 140, bicarb is at 34, BUN 33 with a creatinine of 0.5. No other significant events overnight. He seems to be more arousable compared to yesterday. On 02/02/2024, the patient is on Precedex running at 1.1 mcg/kg/min. He is a bit restless. Awake and tries to talk while even being on the mechanical ventilator. He remains on assist-control mode of mechanical ventilation. He is on volume-cycled rate of 20, tidal volume of 500, FiO2 of 50% with a PEEP of 6. Blood gas showed pH of 7.38 with a pCO2 of 61 and pO2 115. Chest x-ray shows multifocal bilateral pneumonia consolidation. No pneumothorax. Pigtail cath eter still present in the right hemithorax and there is intermittent air leak. No significant output. Fluid balance is +1.1 L over the past 24 hours. The most recent bronchioloalveolar lavage obtained from this patient showed Pseudomonas aeruginosa. Nevertheless, sensitivities have been changed and is Pseudomonas aeruginosa is multidrug-resistant, there is intermediate sensitivity to Zosyn and tobramycin and based on that the patient was started on a combination of Zosyn and tobramycin. He remains on TPN for nutritional support rate of 90 cc an hour. Blood work shows a white cell count of 11.1, hemoglobin is down to 6.4 and a platelet count is at 233. BUN 34 with a creatinine of 0.6 and a sodium levels at 141 with a potassium level is a 3.9. Vancomycin has been discontinued. Abdominal exam remains unchanged. Patient was seen today on , remains in the ICU, remains intubated and mechanically ventilated, patient had a new tracheostomy placed because of leak from his previous tracheostomy this was done by Dr. Beckford on 02/01/24. He also had bronchoscopy and mucous plugs extraction on 01/28 and 01/04 0. Patient is on assist-control rate 20 tidal volume 620 FiO2 50% PEEP of 5 ABG showed a pO2 of 122 pCO2 44 pH of 7.49 hence FiO2 was cut down to 40%. Patient will be given a weaning trial with a pressure support of 14 and CPAP, however he only lasted few minutes and his respiratory rate was in the high 40s and tidal volume was not great. Patient had to be placed back on assist mode of mechanical ventilation shortly after. Remains on Precedex at 0.7, TPN at 90 cc/h patient received a unit of packed RBCs on 02/01 for hemoglobin of 6.4. His sputum continues to show Pseudomonas and this was from 01/29 remains on Zosyn. Continues to have right-sided pigtail catheter with ongoing air leak. Not ready to remove. No evidence of pneumothorax noted on the chest x-ray, continues to have bilateral airspace disease. WBC count is 16.5 hemoglobin 8.6, Basic met abolic profile is normal potassium 3.1 BUN is 37 creatinine 0.65 Seen today on 02/04/2024, ICU, intubated and mechanically ventilated, patient had a CT of the abdomen and pelvis yesterday done mostly because of worsening abdominal distention and abnormal findings on the chest x-ray is suggestive of free air under the hemidiaphragm. Indeed the patient was found to have perforated viscus and pneumoperitoneum. The main situation here is the fact that the patient is extremely poor surgical candidate, and he is critically ill, doubt if he would even survive this perforation with medical therapy. In the meantime the patient remains on antibiotics in the form of tobramycin and Zosyn surgery on the case clearly stated to the that surgical mortality is 100%, and they would not recommend surgical intervention. Family is also aware that medical therapy alone has very high mortality considering his overall condition. Patient has been on antibiotics all along, he is intubated and mechanically ventilated on AC mode of 20 tidal volume 620 FiO2 40% PEEP of 5 patient ABG showed a pO2 of 109 pCO2 43 pH of 7.51, chest x-ray continues to show hydropneumothorax and bilateral airspace disease. I had a long discussion with the family today at bedside and even suggested comfort care measures to the family, as mortality is extremely high either way. Family to make a decision on comfort care measures/hospice. Time continue antibiotics, continue TPN, continue propofol at 45 mcg/kg/min, patient is not in any shape to consider any form of weaning at this point considering this new abdominal findings/bowel perforation WBC count today is 18.6 hemoglobin 7.8 basic metabolic profile is normal potassium is a bit low at 3.1 BUN is 39 creatinine 0.60 Patient was evaluated today on 02/05/2024, remains in ICU, intubated mechanically ventilated on assist-control rate of 20 tidal volume 620 FiO2 40% PEEP of 5 ABG showed a pO2 of 91 pCO2 40 pH of 7.50 patient developed bowel perforation and pn eumoperitoneum day before yesterday, and he is on antibiotics, surgery is not planning any surgical intervention because of high risk. Patient continues to have distended abdomen patient remains on propofol at 45 mcg/kg/min he is also on TPN at 45 mL/h. Today I went ahead and placed a right radial arterial line, patient is getting blood draws and prefers to have it done from the arterial line instead of poking him on a daily basis. X-ray continues show similar findings compared to chest x-ray yesterday, continues to have pigtail catheter on the right side with ongoing air leak. Antibiotics arce remains on Zosyn and tobramycin sputum cultures have been growing Pseudomonas aeruginosa and now his abdominal findings are of concerns and the patient has acute pneumoperitoneum. Objective - Vital Signs Vital signs: Vital Signs Temp 98.3 F 02/05/24 08:00 Pulse 80 02/05/24 11:37 Resp 23 02/05/24 11:00 BP 142/99 02/05/24 11:00 Pulse Ox 96 02/05/24 11:00 FiO2 40 02/05/24 11:11 Intake & Output 02/04/24 02/05/24 02/05/24 18:59 06:59 18:59 Intake Total 2916.158 1555.559 282.633 Output Total 1250 960 350 Balance 1666.158 595.559 -67.367 Weight 105.4 kg 106.8 kg Intake: IV 750 581 60 0.9 Normal Saline @ KVO 240 260 60 Fat Emulsion 20% 250 ml 210 21 In Empty Bag 1 bag @ 21 mls/hr IV TuThSa@0900 [facility] Rx#:[id number] Piperacillin-Tazobactam 3 100 .375 gm In Sodium Chloride 0.9% 100 ml @ 25 mls/hr IVPB Q8HR [facility] Rx# :[id number] Potassium Chloride 20 meq 100 In Water For Injection 1 100ml.bag @ 50 mls/hr IVPB Q2H [facility] Rx#: [id number] Potassium Chloride 20 meq 300 In Water For Injection 1 100ml.bag @ 50 mls/hr IVPB Q2H [facility] Rx#: [id number] Tobramycin Sulfate 160 mg 100 In Sodium Chloride 0.9% 100 ml @ 104 mls/hr IVPB Q8HR [facility] Rx#:[id number] Intake, IV Titration 1506.158 389.559 87.633 Amount Mvi, Adult No.4 with Vit 1037 K 10 ml Trace (Conc-1Ml/ Dose) 1 ml Sodium Acetate 44 meq Magnesium Sulfate gm 1.25 gm Potassium Phosphate 3 mmol Sodium Chloride 4Meq/ml Vial 60 meq Calcium Gluconate 1 gm In Amino Acids 5 %/ Dextrose 20 % 1,000 ml @ 85 mls/hr IV .BY DURATION [facility] Rx#:[id number] Piperacillin-Tazobactam 3 100 .375 gm In Sodium Chloride 0.9% 100 ml @ 25 mls/hr IVPB Q8HR [facility] Rx# :[id number] Potassium Chloride 20 meq 100 In Water For Injection 1 100ml.bag @ 50 mls/hr IVPB Q2H [facility] Rx#: [id number] propofoL 1,000 mg In 269.158 389.559 87.633 Empty Bag 1 bag @ 15 MCG/ KG/MIN 9.63 mls/hr IV . [id number] [facility] Rx#:[id number] TPN/PPN 660 585 135 TPN 660 585 135 Output: Chest Tube Drainage 0 0 0 Chest Tube Right 0 0 0 Gastric Drainage 300 200 Drainage 290 125 Medial Abdomen 290 125 Urine 660 635 350 Other: Voiding Method Indwelling Catheter Indwelling Catheter # Bowel Movements 1 1 ABP, PAP, CO, CI - Last Documented Arterial Blood Pressure 145/90 - Exam General: Revealed 73-year-old white male on mechanical ventilation, sedated, on propofol. Skin: Skin is warm and dry and no rashes or lesions are noted. Tracheostomy is intact. Eye: Pupils are equal, round and reactive to light, extra-ocular movements are intact; there is normal conjunctiva bilaterally. Ears, nose, mouth and throat: There are moist mucous membranes and no oral lesions. Neck: The neck is supple, there is no tenderness or JVD. Tracheostomy is intact Cardiovascular: There is a regular rate and rhythm. No murmur, rub or gallop is appreciated. Respiratory: Crackles at the bases, no rhonchi no wheezes, right-sided pigtail catheter is the same with ongoing air leak Gastrointestinal: Abdomen is distended, but no rebound no guarding, no bowel sounds, continues to have leakage around the J-tube and continues to have a wound VAC in mid abdomen. Musculoskeletal: No deformities and no limitation range of motion other the patient seems to be generally weak. Neurological: Sedated, on propofol, could not assess Extremities: 1+ bipedal edema - Labs CBC & Chem 7: 02/04/24 06:09 02/04/24 16:38 Labs: Abnormal Lab Results - Last 24 Hours (Table) 02/04/24 02/04/24 02/04/24 Range/Units 12:03 16:38 18:00 ABG pH (7.35-7.45) ABG HCO3 (21-25) mmol/L ABG Total CO2 (19-24) mmol/L ABG O2 Saturation (94-97) % Hemoglobin (13.0-17.5) gm/dL Potassium 3.0 L (3.5-5.1) mmol/L POC Glucose (mg/dL) 169 H 143 H (70-110) mg/dL 02/05/24 02/05/24 02/05/24 Range/Units 00:30 05:08 05:38 ABG pH 7.50 H (7.35-7.45) ABG HCO3 31 H (21-25) mmol/L ABG Total CO2 32 H (19-24) mmol/L ABG O2 Saturation 98.5 H (94-97) % Hemoglobin 6.9 L* (13.0-17.5) gm/dL Potassium (3.5-5.1) mmol/L POC Glucose (mg/dL) 133 H 116 H (70-110) mg/dL Assessment and Plan Assessment: Impression: Acute hypoxic respiratory failure requiring intubation mechanical ventilation secondary to aspiration. Status post tracheostomy on 12/10/2023 The patient has bilateral pneumonia with a cavitary infiltrate in the right upper lobe, secondary to Pseudomonas aeruginosa, presently on Zosyn. Status post bronchoscopy on 01/28 and 01/04 and tracheostomy tube change on 01/04 Status post J-tube placement 11/16/2023, multiple complications since then related to the J-tube placement requiring multiple surgeries. 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 Critical illness polyneuropathy Metabolic encephalopathy Malfunctioning of the J-tube Bowel perforation, diagnosed on 02/03/2024, surgery on the case is not recommending surgical intervention because of high mortality/morbidity Recommendation: Continue ventilatory support, no weaning trials recommended today Continue antibiotics including tobramycin and Zosyn Continue propofol for now Continue nutritional support/TPN continue chest tube/pigtail catheter to suction Hold on physical therapy and Occupational Therapy for now, considering the new abdominal issues and the pneumoperitoneum Continue GI and DVT prophylaxis Remains critically ill, prognosis is extremely poor, I honestly believe that this is a medical futility situation Critical care time is over 30, not including the time spent on procedures family updated on his condition Will continue to follow Time with Patient: Greater than 30
--- NOTE | 2024-02-05 12:43 | P.PN ---
Subjective Progress Note Date: 02/05/24 No acute changes. Remains in the ICU, ventilated and sedated. Afebrile > 24 hrs, continues on IV abx Objective - Vital Signs Vital signs: Vital Signs Temp 98.3 F 02/05/24 08:00 Pulse 80 02/05/24 11:37 Resp 23 02/05/24 11:00 BP 142/99 02/05/24 11:00 Pulse Ox 96 02/05/24 11:00 FiO2 40 02/05/24 11:11 Intake & Output 02/04/24 02/05/24 02/05/24 18:59 06:59 18:59 Intake Total 2916.158 1555.559 282.633 Output Total 1250 960 351 Balance 1666.158 595.559 -68.367 Weight 105.4 kg 106.8 kg Intake: IV 750 581 60 0.9 Normal Saline @ KVO 240 260 60 Fat Emulsion 20% 250 ml 210 21 In Empty Bag 1 bag @ 21 mls/hr IV TuThSa@0900 [facility] Rx#:[id number] Piperacillin-Tazobactam 3 100 .375 gm In Sodium Chloride 0.9% 100 ml @ 25 mls/hr IVPB Q8HR [facility] Rx# :[id number] Potassium Chloride 20 meq 100 In Water For Injection 1 100ml.bag @ 50 mls/hr IVPB Q2H [facility] Rx#: [id number] Potassium Chloride 20 meq 300 In Water For Injection 1 100ml.bag @ 50 mls/hr IVPB Q2H [facility] Rx#: [id number] Tobramycin Sulfate 160 mg 100 In Sodium Chloride 0.9% 100 ml @ 104 mls/hr IVPB Q8HR [facility] Rx#:[id number] Intake, IV Titration 1506.158 389.559 87.633 Amount Mvi, Adult No.4 with Vit 1037 K 10 ml Trace (Conc-1Ml/ Dose) 1 ml Sodium Acetate 44 meq Magnesium Sulfate gm 1.25 gm Potassium Phosphate 3 mmol Sodium Chloride 4Meq/ml Vial 60 meq Calcium Gluconate 1 gm In Amino Acids 5 %/ Dextrose 20 % 1,000 ml @ 85 mls/hr IV .BY DURATION [facility] Rx#:[id number] Piperacillin-Tazobactam 3 100 .375 gm In Sodium Chloride 0.9% 100 ml @ 25 mls/hr IVPB Q8HR [facility] Rx# :[id number] Potassium Chloride 20 meq 100 In Water For Injection 1 100ml.bag @ 50 mls/hr IVPB Q2H [facility] Rx#: [id number] propofoL 1,000 mg In 269.158 389.559 87.633 Empty Bag 1 bag @ 15 MCG/ KG/MIN 9.63 mls/hr IV . [id number] [facility] Rx#:[id number] TPN/PPN 660 585 135 TPN 660 585 135 Output: Chest Tube Drainage 0 0 0 Chest Tube Right 0 0 0 Gastric Drainage 300 200 Drainage 290 125 Medial Abdomen 290 125 Urine 660 635 350 Stool 1 Other: Voiding Method Indwelling Catheter Indwelling Catheter Indwelling Catheter # Bowel Movements 1 1 ABP, PAP, CO, CI - Last Documented Arterial Blood Pressure 145/90 - Constitutional General appearance: Present: no acute distress - Respiratory Details: ventilated - Integumentary Integumentary: Absent: cyanotic - Neurologic Neurologic Comment(s): sedated - Labs CBC & Chem 7: 02/04/24 06:09 02/04/24 16:38 Labs: Abnormal Lab Results - Last 24 Hours (Table) 02/04/24 02/04/24 02/05/24 Range/Units 16:38 18:00 00:30 ABG pH (7.35-7.45) ABG HCO3 (21-25) mmol/L ABG Total CO2 (19-24) mmol/L ABG O2 Saturation (94-97) % Hemoglobin (13.0-17.5) gm/dL Potassium 3.0 L (3.5-5.1) mmol/L POC Glucose (mg/dL) 143 H 133 H (70-110) mg/dL 02/05/24 02/05/24 02/05/24 Range/Units 05:08 05:38 11:45 ABG pH 7.50 H (7.35-7.45) ABG HCO3 31 H (21-25) mmol/L ABG Total CO2 32 H (19-24) mmol/L ABG O2 Saturation 98.5 H (94-97) % Hemoglobin 6.9 L* (13.0-17.5) gm/dL Potassium (3.5-5.1) mmol/L POC Glucose (mg/dL) 116 H 114 H (70-110) mg/dL Assessment and Plan (1) Large B-cell lymphoma Current Visit: Yes Status: Acute Priority: High Code(s): C85.10 - UNSPECIFIED B-CELL LYMPHOMA, UNSPECIFIED SITE SNOMED Code(s): 225872253 (2) Aspiration into airway Current Visit: Yes Status: Acute Priority: High Code(s): T17.908A - UNSP FB IN RESP TRACT, PART UNSP CAUSING OTH INJURY, INIT SNOMED Code(s): 363900801 (3) Gastric outlet obstruction Current Visit: Yes Status: Acute Priority: High Code(s): K31.1 - ADULT HYPERTROPHIC PYLORIC STENOSIS SNOMED Code(s): 922514846 (4) Gastric ulcer Current Visit: Yes Status: Acute Priority: High Code(s): K25.9 - GASTRIC ULCER, UNSP ACUTE OR CHRONIC, W/O HEMOR OR PERF SNOMED Code(s): 859280875 (5) Iron deficiency anemia Current Visit: Yes Status: Acute Priority: High Code(s): D50.9 - IRON DEFI CIENCY ANEMIA, UNSPECIFIED SNOMED Code(s): 18177665 Plan: DLBCL of GI tract -Gastric ulcer biopsy obtained on 11/12/23 showing aggressive B-cell lymphoma -MYC +, BCL2 & 6 neg-not dbl or triple hit. -It has been previously discussed with patient/family that any treatment for lymphoma would not begin until patient is healed adequately from surgery/acute condition and been rehabilitated to at least a performance status of 1. Unfortunately, patient has had a very complicated hospitalization and patient's condition has decompensated over the last couple days. CT abdomen pelvis yesterday showing massive pneumoperitoneum with source possibly in the right lower quadrant large bowel and/or small bowel. Concern for possible perforated bowel. CCM and general surgery following. Today, we had a detailed discussion with the patient's spouse regarding his lymphoma and that unfortunately he would not be a candidate for treatment. We further discussed his critical condition and poor prognosis, as well as comfort care measures, which we felt to be appropriate at this time. Spouse was not ready to make decisions regarding hospice/code status. In follow up today, spouse states she has spoken with surgery team and they plan for conservative management with IV abx for now. Spouse stated she is not interested in comfort care measures at this time. He remains full code. All questions and concerns were addressed Doctor attests: I performed a history and physical examination of this patient, developed impression and plan of care. Discussed with dictator. I agree with dictators note, documented as a scribe.
[2024-02-05 12:52] LABS: Anisocytosis Slight; Basophils % (A) 0 %; Eosinophils # (A) 0.2 k/uL (0-0.7); Eosinophils % (A) 2 %; Hypochromasia Marked; Lymphocytes # (A) 2.4 k/uL (1.0-4.8); Lymphocytes % (A) 22 %; MCV 96.6 fL (80.0-100.0); Mean Platelet Volume 7.9; Monocytes # (A) 0.5 k/uL (0-1.0); Monocytes % (A) 4 %; Neutrophils # (A) 7.6 k/uL (1.3-7.7); Neutrophils % (A) 71 %; Platelet Count 239 k/uL (150-450); RBC 1.69 m/uL (4.30-5.90); RDW 16.2 % (11.5-15.5); WBC 10.8 k/uL (3.8-10.6)
[2024-02-05 12:56] LABS: HGB 5.1 gm/dL (13.0-17.5)
[2024-02-05 12:57] LABS: HCT 16.3 % (39.0-53.0)
[2024-02-05 13:08] LABS: ALT 10 U/L (4-49); AST 18 U/L (17-59); African American GFR (CKD) >90 (>60 ml/min/1.73 sqM); Albumin 1.1 g/dL (3.5-5.0); Alkaline Phosphatase 126 U/L (38-126); Anion Gap 3 mmol/L; Blood Urea Nitrogen 19 mg/dL (9-20); Carbon Dioxide 17 mmol/L (22-30); Chloride 124 mmol/L (98-107); Glucose 80 mg/dL (74-99); Magnesium 1.3 mg/dL (1.6-2.3); Non-African American GFR(CKD) >90 (>60 ml/min/1.73 sqM); Phosphorus 2.4 mg/dL (2.5-4.5); Sodium 144 mmol/L (137-145); Total Bilirubin 0.4 mg/dL (0.2-1.3); Total Protein 3.6 g/dL (6.3-8.2)
[2024-02-05 15:10] LABS: Calcium 4.5 mg/dL (8.4-10.2); Potassium 1.9 mmol/L (3.5-5.1)
[2024-02-05 15:45] LABS: Anisocytosis Slight; Basophils % (A) 0 %; Eosinophils # (A) 0.3 k/uL (0-0.7); Eosinophils % (A) 2 %; HCT 22.4 % (39.0-53.0); Hypochromasia Moderate; Lymphocytes # (A) 2.5 k/uL (1.0-4.8); Lymphocytes % (A) 19 %; MCH 29.9 pg (25.0-35.0); MCHC 31.8 g/dL (31.0-37.0); MCV 94.2 fL (80.0-100.0); Mean Platelet Volume 8.4; Monocytes # (A) 0.5 k/uL (0-1.0); Monocytes % (A) 4 %; Neutrophils % (A) 75 %; Platelet Count 336 k/uL (150-450); RBC 2.38 m/uL (4.30-5.90); RDW 16.1 % (11.5-15.5); WBC 13.4 k/uL (3.8-10.6)
[2024-02-05 15:48] LABS: HGB 7.1 gm/dL (13.0-17.5)
[2024-02-05 16:11] LABS: African American GFR (CKD) >90 (>60 ml/min/1.73 sqM); Anion Gap 2 mmol/L; Blood Urea Nitrogen 30 mg/dL (9-20); Calcium 7.5 mg/dL (8.4-10.2); Carbon Dioxide 30 mmol/L (22-30); Chloride 110 mmol/L (98-107); Glucose 124 mg/dL (74-99); Non-African American GFR(CKD) >90 (>60 ml/min/1.73 sqM); Phosphorus 3.9 mg/dL (2.5-4.5); Potassium 3.2 mmol/L (3.5-5.1); Sodium 142 mmol/L (137-145)
--- NOTE | 2024-02-05 16:23 | P.PN ---
Progress Note - Text Progress Note Date: 02/05/24 CHIEF COMPLAINT: Abdominal pain HISTORY OF PRESENT ILLNESS: Patient shon in the ICU and on mechanical ventilation. Patient had a CT-AP which showed free air with likely cecal perforation. Patients vitals have been stable. He is not requiring pressor support. There have been no acute changes in the last 72 hours. Patient was seen and examined with Dr. Irby PHYSICAL EXAM: VITAL SIGNS: Reviewed. GENERAL: frail, weak HEENT: Tracheostomy site clean dry and intact ABDOMEN: Distended. Softer. Wound VAC intact. J-tube with minimal bilious drainage noted on bandage. ASSESSMENT: 1. Pneumoperitoneum with Likely Cecal Perforation 2. 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 Status post J-tube placement and revision for small bowel obstruction 3. Abdominal wound dehiscence status post wound VAC placement 4. Status post tracheostomy PLAN: -I had an extensive conversation with patient's family. From our surgical groups perspective two treatment options are nonoperative intervention vs Hospice. I explained to the family that patient is poor candidate for surgery due to poor wound healing, likely small bowel injuries with enterotomies/fistulas and poor nutritional status. I also did explain that the patients vitals have remained stable and treating this perforation like a contained perforation with bowel rest and antibiotics is the best course of action. I answered all their questions in detail. I do agree with Dr Ramirez's assessment of the patient and ongoing care. -Refer to Dr Pompa's Notes for Surgical Second Opinion Dick Ewing DO [facility] [phone]
[2024-02-05 17:57] LABS: Glucose,Whole Blood 117 mg/dL (70-110)
[2024-02-05] MEDS: POTASSIUM CHLORIDE 20 MEQ in WATER FOR INJECTION 1 100ML.BAG IVPB SCH (18:09)
--- NOTE | 2024-02-05 18:19 | OP ---
OPERATIVE REPORT DATE OF SERVICE : PROCEDURE PERFORMED: Placement of a right radial arterial line. PREOPERATIVE DIAGNOSES: 1. Acute hypoxic respiratory failure. 2. Sepsis. POSTOPERATIVE DIAGNOSES: 1. Acute hypoxic respiratory failure. 2. Sepsis. ANESTHESIA USED: None deployed. DESCRIPTION OF PROCEDURE: The patient was placed in a supine position, the right wrist was placed on a table and prepared in a sterile fashion. Drapes were applied. The right radial artery was palpated, easily cannulated. A guidewire was placed. A Cook's catheter inserted over the guidewire, and the guidewire was removed. Good blood flow, good waveform. No complications. Line was secured using 3-0 silk sutures. MMODL / IJN: [id number] /
--- NOTE | 2024-02-05 18:49 | P.PN ---
Progress Note - Text Progress Note Date: 02/05/24 Chief Complaint: On the ventilator This is a 73-year-old patient, follows with Dr. Patricia Deal. Patient was seen this morning in the ICU. Patient's and daughter at the bedside. History obtained predominantly by the . Patient been having trouble with his stomach symptoms for close to 8 months. Patient underwent EGD by Dr. Sahara Cheng yesterday. Patient was found to have ulcerated around the antrum and obstruction to the pylorus. A lot of retained food was found. Patient aspirated. Had to be intubated and brought to the ICU. On a Levophed drip. FiO2 50 and a PEEP of 6. Patient had been losing weight lost about 25 pounds. Previously has a history of mitral valve prolapse. November 13: ICU. Patient remains on Precedex drip and propofol drip. Did not do well attempted extubation yesterday. Patient been off Levophed. NG tube to suction. Spoke to patient's and son at the bedside. Biopsy results awaited. Hemoglobin dropped to 6.9 this morning. Get a unit of blood. November 14: ICU. Up in a chair. Extubated yesterday. NG tube to suction. at the bedside. 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 Oncology was consulted. They have ordered a port. Results discussed with Dr. Sahara Cheng. General surgery was consulted for J-tube placement. Discussed with at the bedside. Patient getting IV fluids, IV Zosyn,. Patient has been on IV amiodarone for A-fib-back in sinus rhythm. Multiple PACs. Did receive unit of blood yesterday. Also IV ferric gluconate. November 15: ICU. Patient earlier today underwent jejunostomy tube placement and a port placement. Patient awake. Answering questions. NG tube to suction present. Updated patient's . Patient remains on IV amiodarone and IV Zosyn. November 16: ICU. Up in the chair. NG tube present but not to suction. Trickle feeding through the jejunostomy tube should be started today. Dietitian has been on board. IV Zosyn to continue. Patient's and his sister at the bedside. Discussed. Also spoke with Dr. Serna. Given patient has no other predisposing cardiac factors for the A-fib except acute illness. His LV function is normal. Left atrium is normal. He has already been loaded with IV amiodarone. Will switch him to oral Lopressor 12.5 twice daily. Hence will DC amiodarone. Patient yesterday had wheezing was put on bronchodilators steroids per pulmonary. November 17: Propped up in bed. NG tube was discontinued. Sinus rhythm. Remains NPO. Getting G-tube feeding at 40 cc an hour. Dietitian following. Get arrangements done for DC home tomorrow including tube feeding. Increase activity discussed with patient and elder daughter at the bedside. Still requiring oxygen. Incentive spirometry. November 18: Patient up in recliner. Earlier today spoke to social services designee David. Informed patient is rather weak and will be going to the [facility]. Looking at authorization. Denae came to the room and spoke to patient his and his daughter. They are very keen to take the patient home as 3 daughters all nurses and they will take care of him at home. Patient earlier today to abdominal cramping and some loose stools.'s tube feeding was held. Told the nurse to start back at the rate of 40 cc an hour. He was before the getting it at 55 cc an hour. Incentive spirometry was again emphasized. Patient remains on 4 L of oxygen. November 19: I saw the patient this morning. Hence I am in the evening. Morning was sitting with his sons. Has some edema. Lungs had crackles I gave him 40 mg of Lasix. He did make good urine. Tube feeding was held from the p revious evening of because of abdominal cramping. Acute abdominal series showed nonspecific bowel gas pattern and SBO to be ruled out. Family and patient was updated. Told him discharge will depend on day by day. Later this afternoon CT scanAnd abdomen pelvis done. Showed small bowel to be 3 point centimeter dilated. Some anasarca. Gastric findings. Gallstones. Later spoke to Dr. Irby from general surgery. They will further review and decide about further plan of action. Will give further dose of IV Lasix because of fluid overload from likely hypoalbuminemia and IV fluids previously received. Patient may take his pills by mouth. Total time spent today about 1 hour with over 40 minutes of discussion. Patient did state his breathing is better after Lasix this morning. November 20: Saw the patient this morning. was present. Patient received 2 more doses of Lasix. Diuresed well. Breathing much better. Lungs are sounding better. Discussed with Dr. Zepeda other surgeon. He is taking 3 cc out of the balloon and the gastrostomy tube. Started trickle feeding at 5 cc an hour. Will see how this does. Later in the day ran into the and the daughter again. Did update them on the same. Dilaudid was discontinued yesterday but morphine was ordered by surgery for patient having pain. Concerns about GI issues with that we will DC the morphine. As family does not want the same. November 21: Patient reclining bed. Tired. Several family members at the bedside. Including his and eldest daughter. Patient started on trickle feed yesterday at 5 cc an hour. This morning he has been on 10 cc an hour. Still having some loose stools. C. difficile was ordered. Patient on 2 L of nasal cannula. Has diuresed well. Will give an additional dose of Lasix today. If C. difficile is negative and the diarrhea is from the tube feedings we may have to use a fecal management system to keep him comfortable. Otherwise patient remains NPO. Dietitian is following the patient. Care was discussed length with patient the and daughter at the bedside. Questions answered. Liquid Tylenol has been added for abdominal pain. Avoid narcotics. Elevated white count likely from Solu-Medrol 11/23/2023--patient was feeling better today. Multiple family member at bedside. No issues overnight. Normal saline at 10 cc an hour, tube feeding at 20 cc an hour, remains on Zosyn, on 3 L oxygen. Afebrile. Heart rate 62, respiratory rate 16, blood pressure 114/67, saturating 91% on 3 L. WBCs 14.5, 9.7 hemoglobin. Platelet 242. BMP is unremarkable. Pulmonary and general surgery following. General surgery recommended to continue tube feeds at 20 cc/h. 11/24/2023--patient reported significant abdominal discomfort, also noted to have leak around G-tube. General surgery is following, evaluated the patient at bedside, adjusted tube feeds. Also reported having diarrhea, on 2 L oxygen, went up to 5 L. Blood pressure was low, 500 mL fluid bolus with close monitoring of respiratory status ordered. Currently on DuoNebs, Solu-Medrol, will continue Zosyn. Chest x-ray showed a left lower lobe infiltrate. Abdominal x-ray showed multiple air-fluid levels. CT abdomen showed multiple dilated small bowel loops, consistent with obstruction, pneumoperitoneum, cholelithiasis and ascites. WBCs 14.1, platelet 255, hemoglobin 8.9. NG tube in place. Family at bedside. patient transferred to SICU for close monitoring. 11/25/23--patient is currently in the ICU, required Levophed overnight due to low blood pressure, low urine output with creatinine trending up. Nephrology following. Virtual Assistant also following. Patient remains n.p.o., NG tube in place, following NG tube insertion patient had total of 2 L output, J-tube was draining approximately 200 cc over last 8 hours, continues to have abdominal pain and abdominal tenderness. Patient on IV fluids. Currently on 4 L oxygen. WBCs 8.2, hemoglobin 12.3, platelet 188. Chest x-ray earlier today showed right sided port and a stable left lung airspace disease, NG tube in place. Patient currently on Zosyn, on IV Dilaudid for pain control, on IV Solu-Medrol. General surgery planning for OR today, started on TPN. 11/26/23--patient was seen and examined today. Patient is currently sedated, intubated on mechanical ventilation. Family at bedside. Patient underwent ex lap, abdominal washout, small bowel resection with new feeding jejunostomy tube placement yesterday, small bowel was noted to be perforated with significant contamination of abdominal cavity. Patient is currently on vancomycin and Zosyn. Creatinine went up to 2.85, nephrology following, recommended to continue IV fluids, avoid nephrotoxin Preserved EF on echocardiogram.. Patient currently on Levophed, vasopressin in the ICU for close monitoring. Patient is afebrile, heart rate 122, blood pressure 129/76, currently on mechanical ventilation, sedated. November 26: ICU. Intubated. FiO2 60 and a PEEP of 5. Drips include IV amiodarone. Heart rate was up early did get fired microgram of IV digoxin and 2.5 mg of IV Lopressor. Did drop her blood pressure bit. Urine output was low. Received 80 mg of IV Lasix. Ahmet to 150 cc. Other drips include IV propofol, vasopressin, Levophed. TPN was started yesterday. Antibiotics include IV Zosyn and vancomycin. Patient has a J-tube to drainage to gravity. Spoke to patient's younger daughter and at the bedside. Prognosis guarded. Continue current treatment plan. Chest x-ray shows right lower lobe consolidation. Small pleural effusion. November 27: ICU. Intubated. FiO2 55 and a PEEP of 5. Antibiotics include IV vancomycin. Drips include Levophed at a small dose, IV vasopressin, propofol, amiodarone. Patient converted to sinus rhythm this morning. Getting TPN and normal saline at 75 cc an hour. Urine output about 25 cc an hour. 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 NG tube with bilious output. And also GI J-tube output to gravity. Spoke to patient's and daughter at the bedside. They understand patient still not out of the kee. Platelets have dropped-therefore probably Zosyn stopped. November 28: ICU. Intubated. FiO2 55 and a PEEP of 5. Patient is in sinus rhythm. Seen this morning. Due for dialysis catheter this afternoon. Urine output about 15 to 20 cc an hour. Patient is on IV Lasix 80 mg every 12. Saline is KVO. Drips include IV propofol vasopressin. Patient having significant output through the RAYA drain and the jejunostomy tube to drainage. Creatinine had been getting worse. Patient's at the bedside. Understands patient's remains critically ill. Hemoglobin is down to 7. Given that patient's pain hypotensive, and on vasopressin we will give a unit of blood with dialysis. Getting TPN antibiotic changed to IV meropenem November 29: ICU. Intubated. FiO2 55 and a PEEP of 5. Remains in sinus rhythm. Getting TPN. Dialyzed yesterday and this morning. About 1000 cc removed. Urine output about 50 cc an hour. Patient is on IV propofol. Off vasopressin. Still having significant output through the RAYA drain and jejunostomy tube. Patient received a second unit of blood yesterday. Patient's and daughter at the bedside. I did discuss guarded prognosis. Did asked them to revisit CODE STATUS.. Getting IV meropenem. November 30: ICU. Intubated. Did get a sedation holiday t today. Back on propofol. Getting TPN. Still getting IV Lasix. Fair urine output. Jejunostomy tube in last 8 hours was about 30 cc output. RAYA drain in the 8 hours had about 180 cc output. Telemetry shows sinus rhythm. NG tube has low intermittent suction with negative output. On the vent with FiO2 40 and a PEEP of 5. No hemodialysis today. Discussed with the and eldest daughter at the bedside. IV meropenem-patient's sputum had grown Citrobacter freundii and Pseudomonas aeruginosa. December 01: ICU. Intubated. Jejunostomy tube to gravity. Only 10 cc output in last 24 hours. RAYA drain. About 190 cc last 6 hours. Nasogastric tube to low intermittent suction. Minimal output. Patient is on a small dose of propofol 5 mics. Telemetry shows sinus rhythm. Patient started on small dose of Cleviprex this morning. Blood pressure. Getting TPN. FiO2 35 and PEEP of 5. Discussed with the at the bedside. Hemodialysis today December 02: ICU. Patient remains intubated. FiO2 35 PEEP of 5. Patient is on IV propofol. IV Cleviprex was discontinued yesterday. Also remains on TPN. Telemetry shows sinus rhythm. NG tube is good no output. Still significant output through the RAYA drain. Jejunostomy tube has minimal output. Patient had hemodialysis today 2 L of fluid was removed. Oral half liters yesterday. Patient getting a sedation holiday. General Surgery started the patient on trickle feeding at 10 cc an hour. I did speak to patient's at the bedside. Prognosis remains guarded but there is some improvement. December 03: ICU. Intubated. FiO2 35 PEEP of 5. Drips include IV propofol and Precedex. Getting TPN. Telemetry shows sinus rhythm. Remains on IV Lasix 80 mg twice a day. IV meropenem. Because patient gets easily agitated when transitioning off propofol he has been switched over to Precedex. For hemodialysis today. December 04: ICU. Intubated. FiO2 35 and a PEEP of 5. Patient been taken off propofol is on Precedex. Telemetry sinus rhythm. J-tube with minimal output. RAYA drain with decreased output. NG tube to suction minimal output. Family wanted to hold off trickle feeding until cleared by oncology. Which he did today. Trickle feeding will be started today. Spoke to patient's and one of the daughters at the bedside. Dr. Russ is spoken to the earlier this point they want to do further tracheostomy tube. October 4: ICU. Intubated. FiO2 35 PEEP of 5. Patient remains on Precedex and PPN. Patient's dialysis catheter was not functioning is getting another [address] Bobby this afternoon. Remains on IV meropenem. Has a RAYA drain in the jejunostomy tube to gravity. NG tube to low intermittent suction. No family at the bedside. December 06: ICU. Intubated. FiO2 35 PEEP of 5. RAYA drain putting out about approximately 120 cc per shift. Patient on IV Precedex. FiO2 35 PEEP of 5. Telemetry-sinus rhythm. Patient occasionally been put on small dose of Levophed specially for hemodialysis getting it today. Also started on midodrine for low blood pressure. Tolerating tube feeding at 10 cc an hour. Also had a bowel movement. Mentation has not improved. Even with sedation holiday. Neurology consulted. CT brain shows no acute process. December 07: ICU. Intubated. FiO2 35 PEEP of 5. Telemetry-sinus rhythm. NG tube to suction low intermittent minimal output. Getting TPN. Tube feeding at 20 cc an hour. RAYA drain averaging over 100 cc per shift. Remains on Precedex. EEG was done today. Discussed with at the bedside. Family is currently not inclined for tracheostomy tube today. Day 13 of being intubated December 08: ICU. Intubated. FiO2 35 PEEP of 5. Patient is put on back on propofol per investigator vice Dr. JIMENEZ. EEG did show some potential for spikes was put on Keppra by neurology. Telemetry shows sinus rhythm. NG tube to suction with no output. Tube feeding was put on hold because of questionable discharge on the site. Being restarted today. RAYA drain is 150 cc last 12-hour shift. Patient does open eyes. Family has decided to proceed with tracheostomy and surgery has been consulted for the same. Spoke to the at the bedside. For hemodialysis today. December 09: ICU. Intubated FiO2 35 PEEP of 5. Patient seen this morning. Pending tracheostomy placement this afternoon. Remains NPO. G-tube feeding was held overnight. RAYA drain putting out about 100 cc per shift. Received a unit of blood for hemoglobin of 6.6. On 25 mics of propofol. Getting TPN and meropenem. Spoke to the at the bedside. Patient became hypotensive with dialysis yesterday. Levophed had to be given. Only 800 cc were removed yesterday. No hemodialysis today. December 10: ICU . FiO2 35, PEEP 5. Tracheostomy was done yesterday by Dr. Ewing. G-tube feeding was started today at 10 cc an hour. Dietitian following. RAYA drain 12-hour shift overnight put out about 30 cc. Patient hemodialysis today about 1 L removed. Patient has a sacral stage II decub with a dressing. On propofol 20 mics. Spoke to at the bedside. TPN. Meropenem was discontinued yesterday. December 11: ICU. FiO2 35 PEEP of 5. Tracheostomy. NG tube was discontinued. No hemodialysis today. Telemetry shows sinus rhythm. J-tube feeding at 40 cc an hour. TPN was discontinued. Patient has been off propofol also. PICC line in place. Patient had a EEG done today. Spoke to patient's elder daughter at the bedside. May open eyes occasionally. Not really following commands December 12: 73-year-old white male with history of chronic abdominal pain for the last 8 months has been treated with Protonix 40 mg daily for the last 3 months with no improvement. Patient had a 22 pound weight loss in the last [address] of the abdomen and pelvis 3 weeks ago showed thickening of the antral wall with pathological adenopathy posterior to the stomach suspicious of neoplasm. Today the patient underwent elective upper endoscopy to evaluate further, patient received IV sedation by anesthesia endoscope was inserted into the mouth, esophagus was intubated without any difficulty there was evidence of large amount of liquid and solid food noted in the stomach suggestive of gastric outlet obstruction. Scope could not be advanced through the pylorus, however in the prepyloric area there was a large superficial ulceration identified with multiple biopsies were done from this area. The body cardia and fundus could not adequately visualize because of large amount of retained food in the s tomach. Scope was withdrawn back to the stomach and upon careful examination the mucosa of the antrum body and cardia as well as the fundus appeared normal. Procedure was being performed and biopsies were done patient threw up and subsequently became hypoxic there was clearly evidence of witnessed aspiration anesthesia intubated the patient, procedure was terminated, and the patient was transferred to the ICU, this consult was initiated. Patient is now on assist- control rate of 20 tidal volume 500 FiO2 70% PEEP of 10 ABG is pending, earlier ABG showed profound hypoxia patient is on propofol at 50 mcg/kg/min, next ABG is pending. Chest x-ray showed chronic changes without evidence of acute pulmonary disease. 12/14/2023 Patient remains in the ICU, generally weak Patient s/p tracheostomy G-tube in place Patient still has fever and mild tachycardia but tachycardia is improving, leukocytosis improving as well. Hemoglobin 8.1. Creatinine 3.0 and nephrology team on the case. He has mild transaminitis. He was getting Zosyn which is held now, nowCalcitonin is pending 12/14 Patient shon in the ICU, he is still encephalopathic and does not follow command. Neurology service following closely. He is status post tracheostomy. Also J-tube His abdomen looks soft and on exam he has mild coarse secretions. Has a Abarca catheter with clear urine His pro- Calcitonin is still high but trending down 3.0 down to 1.9 No fever this morning WBC slightly less at 16.3 Patient currently off antibiotic He is getting steroids IV Solu-Medrol which might contribute to his leukocytosis. Also he is on IV Keppra by neurologist 12/14 Patient remains confused in the ICU calm, he had a good night per family member and staff. Tracheostomy in place Patient has occasional coughing spells, patient also developed some partial wound dehiscence in his abdomen, surgery team are aware and are going to evaluate the patient Patient also has positive blood culture from 12/13: Gram-positive cocci in clusters. Patient received one-time dose of IV vancomycin. Patient also had fever 2 days ago, leukocytosis and total elevated pro- Calcitonin. Therefore we are going to consult infectious disease team. As his antibiotic Zosyn was stopped few days ago. Currently patient KVO He has good urine output December 16: ICU. Trach. Congested. Requiring suctioning. No hemodialysis today. Getting G-tube feeding at 50 cc an hour. FiO2 30 and a PEEP of 5. On IV Precedex. Eyes open. Does follow commands. Weakness in the limbs. Spoke to at the bedside. Sputum positive for Klebsiella oxytoca and Pseudomonas aeruginosa. December 17: ICU. On trach. Currently cough with increased secretions requiring suctioning. Adding scopolamine patch. Very much clear secretion. CT scan is showing right upper lobe lung abscess. G-tube feeding at 50 cc an hour. Hemodialysis today. RAYA drain putting out about 140 cc a shift. Serous. Has been midline incision wound dehiscence. Wound VAC was placed on it. Stage II ulcer. Patient is on Precedex drip 0.15 mics. Urine output is good about 6200 cc an hour. Spoke to the at the bedside. Patient currently not stable for transfer to LTAC. No limb movements. PT OT on the case. otherwise awake does follow simple commands by face December 18: ICU. Patient seen this afternoon. Because of pain getting IV Dilaudid. No nasal cannula on room air. Does move about his head. Telemetry shows sinus rhythm. FiO2 30 and a PEEP of 5. Patient started on scopolamine patch yesterday has decreased secretions today. Good urine output. Tube feeding at 60 cc an hour. Wound VAC on incisional would be high since in place. RAYA drain continues to make output. No hemodialysis today December 19: ICU. Patient was seen earlier today. FiO2 30 and a PEEP of 5. Sinus rhythm. Awake. Does follow with eyes. Tube feeding got obstructed tube feedings held for now. Increasing oozing from the incision drainage site. at the bedside. Wound VAC remains in place. Good urine output. Dialysis held today. December 20: ICU. Per nephrology no dialysis today. 1 L fluid bolus given. J- tube was replaced over the wire by Dr. Ewing from surgery. On Precedex 0.6 mcg. FiO2 30 and a PEEP of 5 on the vent. RAYA drain putting out of around 100 cc per shift. at the bedside. Drainage through the abdominal incision wound. CT scan abdomen showed tube placement in the small bowel. Stable large right lower quadrant mass with a fluid level. December 21: ICU. No dialysis today. Patient started on trickle feeding through the J-tube yesterday. He started leaking around the J-tube site. Tube feeding was held. Dressings were placed. Wound VAC remains on the incision. Still having output through the RAYA drain. Patient remains on Precedex 0.4 mcg. FiO2 30 and a PEEP of 5. Sinus rhythm. at the bedside. December 22: ICU. Patient was seen this morning today by me. No dialysis today. Patient's and daughter at the bedside. FiO2 30 and a PEEP of 5. Sinus rhythm. Still having significant secretions through the tracheostomy tube. On Precedex 0.4 mcg. Getting D5W IV fluids. Tube feeding remains to be on hold since yesterday. Still output of RAYA drain. Awaiting input from surgery. Discussed with the and daughter. December 23: ICU. Saw the patient this afternoon. Because of good output of urine dialysis has been discontinued. Telemetry shows sinus rhythm. FiO2 30 and a PEEP of 5. RAYA output has been around 8200 cc an hour. Good urine output. Patient does have very slight movement of the limbs. Wound VAC is putting out about 20 cc per shift. Yesterday when trickle feeding was started patient's J- tube drainage also started leaking around the insertion site. Tube feeding was held. Patient remains on IV Zosyn and Precedex at 0.3 mcg. I had a very lengthy discussion with patient's daughter and at the bedside overall guarded prognosis. Later surgery spoke to the family, and then the nurse called me that family was wanting transferred to [facility]. I spoke to Dr. Irby. They felt they could not offer anything more at this point. I did call the [facility] transfer steam drier operator. Gave them the reason for transfer. Later in the ICU nurse informed me through [employer] that [facility] had declined the transfer. Total time spent today about 50 minutes with over 30 minutes of discussion. December 24: ICU. Patient is doing not too well. Sinus rhythm. Drips include norepinephrine and IV propofol. Surgery did put 2 stitches around the J-tube insertion site. Started on TPN today. FiO2 30 PEEP of 5. Patient became hypothermic put on a Manjit hugger. Also hypoglycemic. Decreased urine output. IV fluids increased. Patient's son was at the bedside. I did speak to patient's eldest daughter outside in the waiting room. Did tell the patient doing very poorly. I did try to call the on the phone number she has gone home. Started an IV antifungal today. December 26, 2023 73-year-old white male with history of chronic abdominal pain for the last 8 months has been treated with Protonix 40 mg daily for the last 3 months with no improvement. Patient had a 22 pound weight loss in the last [address] of the abdomen and pelvis 3 weeks ago showed thickening of the antral wall with pathological adenopathy posterior to the stomach suspicious of neoplasm. Today the patient underwent elective upper endoscopy to evaluate further, patient received IV sedation by anesthesia endoscope was inserted into the mouth, esophagus was intubated without any difficulty there was evidence of large amount of liquid and solid food noted in the stomach suggestive of gastric outlet obstruction. Scope could not be advanced through the pylorus, however in the prepyloric area there was a large superficial ulceration identified with multiple biopsies were done from this area. The body cardia and fundus could not adequately visualize because of large amount of retained food in the stomach. Scope was withdrawn back to the stomach and upon careful examination the mucosa of the antrum body and cardia as well as the fundus appeared normal. Procedure was being performed and biopsies were done patient threw up and subsequently became hypoxic there was clearly evidence of witnessed aspiration anesthesia intubated the patient, procedure was terminated, and the patient was transferred to the ICU, this consult was initiated. Patient is now on assist- control rate of 20 tidal volume 500 FiO2 70% PEEP of 10 ABG is pending, earlier ABG showed profound hypoxia patient is on propofol at 50 mcg/kg/min, next ABG is pending. Chest x-ray showed chronic changes without evidence of acute pulmonary disease. 12/27/2023 Patient is seen and evaluated with family at bedside; remains in the ICU intubated and mechanically ventilated. - ABG showed a pO2 of 99 pCO2 31 pH of 7.44. -- Remains on Eraxis daptomycin and Zosyn patient is intermittently requiring Dilaudid, Ativan does not seem to help his agitation and restlessness. -- Continues to have leakage around the jejunostomy tube, and patient is undergoing the J-tube exchange today. Family is at bedside, seems to be quite anxious about his overall condition, and I explained to the that we are doing the best we can considering his critical illness situation and critical illness polyneuropathy. Patient is profoundly weak, and weaning the patient from mechanical ventilation is almost impossible. At least not at this point yet WBC count is 10.9 hemoglobin is 8.1 basic metabolic profile is normal BUN is 46 creatinine 1.90 patient has been off hemodialysis since the . Chest x- ray continues to show stable findings with right upper lobe opacity and right lower lobe opacity and possibly a small right-sided pleural effusion ----Continue ventilatory support, now on IMV mode rate of 16 with pressure support of 14 Continue Precedex and use Dilaudid 0.5 mg every 2-3 hours as needed. Nutritional support patient is now on TPN, Possible J-tube changed today for J- tube malfunction Continue antibiotics including daptomycin and Zosyn, Eraxis was added by infectious disease 12/28/2023 the patient is seen and evaluated in room at bedside; continues to be afebrile, the patient is on the ventilator through the trach FiO2 is currently stable at 30% no significant pleural effusion clinically patient on requiring any pressor support still having drainage around his jejunostomy tube patient dialysis catheter has been discontinued. Patient white count normalized to 7.6, creatinine is 1.51 patient with pneumonia with a sputum showing Citrobacter and Pseudomonas aeruginosa, the patient sputum repeat is still growing Citrobacter and Pseudomonas sensitive to the Pseudomonas is pending continue with Zosyn -patient did have a positive blood culture with staph epi that was oxacillin resistant as the patient did have a PICC line and the dialysis catheter he is on daptomycin repeat blood culture currently growing oxacillin sensitive staph epi, the patient dialysis catheter has been discontinued Has been sent for the culture -patient also have significant excoriation around his jejunostomy tube site which is still leaking Eraxis was added which will be continued as the patient fever pattern has improved and the patient white count has normalized once again discussed with the nursing staff to apply Triad cream which was discussed yesterday but not applied and monitor clinical course closely 12/29/2023 Patient is seen and evaluated with family members at bedside; remains intubated and mechanically ventilated -- ABG showed a pO2 of 105 pCO2 31 pH of 7.45. Remains on Precedex; multiple antibiotics and antifungal including Eraxis daptomycin and Zosyn. -- chest x-ray is showing improvement in his right upper lobe airspace disease/pulmonary abscess. Right lower lobe seems about the same with chronic opacity and possibly some small right-sided pleural effusion. --Family is at bedside, patient is arousable but does not follow any instructions. Gets extremely restless and agitated easily hence patient is receiving Dilaudid which seems to be working much better for this patient than benzodiazepines --possibly transfer the patient to a select care specialty. 12/30/2023 Evaluated in follow-up in the intensive care unit. He remains on the mechanical ventilator. Status post tracheostomy. There has been a decrease in the amount of leakage around the J-tube site he continues on a gravity flow. TPN is infusing tube feedings remain on hold at this time. No bowel movement reported for the last 5 days. X-ray today reveals extensive pleural parenchymal opacities throughout the right with at least a moderate pleural effusion. Mild patchy densities left mid and lower lung are also similar. Blood work reveals a white blood cell count 11.5, hemoglobin 8.1, platelet count of 78, sodium 142, potassium 4.2, BUN of 42, creatinine of 1.22, Phos of 2.3, magnesium 1.9. Patient continues on IV anidulafungin IV Zerbaxa IV daptomycin. Patient is currently sedated with propofol and also Precedex which is currently on hold at this time. December 31, 2023: ICU. Patient continues to do poorly. On propofol 35 mics. Also getting IV Dilaudid and IV Ativan.. Telemetry shows sinus rhythm. J-tube feeding has been discontinued. Significant output through the Abarca bag and around the G-tube site. Patient also putting out through the RAYA drain on the right side. Getting TPN and lipids. Patient is antimicrobial include iv aniedulefungin, IV ceftolozane/tazobactam, IV daptomycin Advance care planning [October 31, 2023] I met with patient's at the bedside. Went through in detail with patient is overall very poor clinical status. Chances of any meaningful recovery next to minimal. I also did mention that patient in my opinion was not stable to go to chronic ventilator setting. I suggested comfort care/hospice. I did not feel and why all honesty that patient is benefiting any further from the treatment we are giving him in fact causing probably more suffering. I also spoke to patient's daughter outside in the waiting room. Total time spent about 50 minutes with over 30 minutes of discussion. Later I called Dr. Luther JIMENEZ the investigator vice after he received a text that family was expressing that some physician expressed he was doing better and giving hope. I spoke to nurse Lemos in the evening and she and Dr. JIMENEZ did go and talk to patient's family at the bedside later. January 01, 2024: ICU. FiO2 30 and a PEEP of 5. Continues to have increased drainage at the G-tube site. Wound VAC in place over the incision. RAYA drain continues to put out excretions. Good urine output. Drips include IV propofol at 20 mics, also getting IV Ativan and Dilaudid. Patient also keeping getting TPN lipids. Spoke to the patient's at the bedside. No further questions. I did speak to Dr. Irby from general surgery. Hence it is both our impression again that changing the tube will not make any difference to the bigger picture. And probably futile. Dr. Irby will be speaking to the family today. David from social services designee did ask about of family meeting. I did reiterate that I spoken at length to the a few times and also the daughter. Dr. Jimenez also spoke to the and Dr. Irby will be speaking with the today. Prognosis remains to be very poor. I did tell the in my opinion probably the patient is not r a candidate for long-term facility. Will investigator vice Dr. Jimenez determine if the patient is a candidate for long-term chronic ventilator facility. January 02, 2024: ICU. FiO2 30 PEEP of 5. Telemetry sinus rhythm. Drips include propofol at 20 mics. Patient getting TPN lipids. Receiving 1 unit of packed red blood cell. Patient was having a breakdown around the tracheostomy stoma site. With a cuff leak. G-tube site is continues to have increasing output. Wound VAC in place. RAYA drains also having increasing output. Patient sister and daughter from [place] from out of town. Earlier they spoke at length with Dr. alford from general surgery. Prognosis remains poor. January 03, 2024: ICU. FiO2 30 PEEP of 5. On propofol. 50 mics. Getting TPN lipids. Sinus rhythm. Wound VAC in place. Drainage around the j-tube site. RAYA drain continues to drain. Patient somewhat sedated. at the bedside. Later social services designee David inform me that the surgical team Dr. Irby has suggested possible you have [facility], to which family is trying to obtain transferred to. Per Dr. Jimenez note patient has been decline by long-term care twice. Prognosis remains poor. at the bedside. Had no questions. Brother Nathan is present. January 04, 2024: ICU. FiO2 30 PEEP of 5. Propofol was held this morning. Getting TPN lipids. Sinus rhythm. Wound VAC remains in place. Continues to have drainage around the J-tube. RAYA drain continues to have output. at the bedside. She had no questions. Antibiotics in place. January 05, 2024: ICU. FiO2 30 PEEP of 5. Audibly sounding congested. Getting TPN lipids. Sinus rhythm. Wound VAC in place. Drainage around J-tube site. RAYA output continues. No family at bedside. Getting antibiotics. Lethargic January 06, 2024: ICU. FiO2 30 PEEP of 5. Patient is been off propofol since yesterday. Does move his head about. Try to open his eyes sometimes. Sinus rhythm. Blood pressure is running high yesterday. Started on Cleviprex. Hydralazine is being added. Continue to get TPN lipids. J-tube site remains excoriated. Wound VAC in place. RAYA output about 40 to 50 cc is a 12-hour shift. Patient elder daughter at the bedside. Eraxis was discontinued on January 02. Daptomycin is being discontinued by ID. Continue ceftolo'szone. CT abdomen pelvis done today: 3.1 cm organized fluid collection within the rectovesicular space concerning for abscess. No change in right upper lung 4.9 cm fluid collection with a fluid level. For possible pulmonary abscess. Moderate size right lung base multiloculated hydropneumothorax possibly abscess. Additional areas of air bronchograms. January 07, 2024: ICU. FiO2 30 PEEP of 5. Patient was taken down for pigtail drainage of the right lung abscess. About 200 cc of pus was obtained. Nurse informed me when they told him about for the procedure a lot of pus gushed out from the tracheostomy site. Dr. Love at the bedside did a bronchoscopy. Some pus was aspirated. No obvious fistula was noted. Patient is being back on Cleviprex drip. TPN lipids. January 08, 2024: ICU. Patient was having severe bouts of coughing. Unable to maintain ventilation. Patient was put on Nimbex drip and propofol drip. TPN lipids continue. Has a right chest wall pigtail catheter 90 cc output in 12- hour shift. Drainage from around the J-tube site. RAYA drain continues Ahmet to have an output. Abdominal wound is high since with the wound VAC in place. Patient sedated. January 09, 2024: ICU. Patient is off propofol and Cleviprex. Does open eyes. RAYA drain. About 40 cc last 24 hours. J-tube site continues to have increased output. Requiring dressing change every so often. Wound VAC in place. Patient getting Dilaudid and Ativan. Telemetry shows sinus rhythm. 40 cc out of the pigtail drainage. Patient started on ciprofloxacin and tobramycin. Remains on TPN and lipids. Patient's eldest daughter and at the bedside. No new questions. January 10, 2024: ICU. Overnight patient had become asynchronous. Had to be put on Precedex drip. Hemoglobin dropped down to 6.6. Monitor blood ordered. RAYA output about 100 cc last 24 hours. Wound VAC remains in place. TPN lipid continues. Patient also has a leak in the right pigtail catheter. Sinus rhythm. Continues to have increased secretion at the G-tube site. Ventilator FiO2 30 and a PEEP of 5. at the bedside. Had no further questions. January 11, 2024: ICU. Patient remains on IV Precedex. TPN.'s RAYA output over 30 cc last 24 hours. Wound VAC remains in place. Sinus rhythm. FiO2 30 PEEP of 5. Pigtail with very little output. Spoke to Dr. Love who only spoke to the patient's at length. Gnosis poor. When I walked in patient's 2 daughters and the present. is very tearful crying hugging the patient. The daughter had no further questions January 12, 2024 Ahmet: ICU. Continues on IV Precedex. Getting TPN lipids. Wound VAC in place. Sensitive. FiO2 30 and a PEEP of 5. Patient's at the bedside. Had no questions. January 13, 2024: ICU. FiO2 30 PEEP of 5. Remains on Precedex 0.8 mg. Eyes open. Sometimes does track with head. Not moving limbs. Some decrease in output from the G-tube site. Wound VAC putting out about 100 cc every 12 hours. RAYA drain about 100 cc every [address] Russ met with the family earlier today. Patient's been made DNR. Telemetry sinus rhythm. Patient's and daughter at bedside. They have no questions January 14, 2024: ICU. FiO2 30. PEEP of 5. Patient is has eyes open and tracking. Urine output about 100 cc an hour. NG site output looks like gastric contents. RAYA site about 50 cc in the last 12 hours. Telemetry sinus rhythm. and daughter have asked for hospice consultation for informational visit. They want to use [facility]. I sat with them and the nurse and a full expression of the hospice involved involved. Several questions answered. Daughter does express that she would like to take the patient home. The other sibling will be coming on from [place] on Saturday. They want to hold on at least until then. January 15, 2024: ICU. FiO2 30 and a PEEP of 5. Getting CPAP today. Asynchronous better. J-tube site continues to have increase secretions. Sinus rhythm. Awake. Does move his head possibly to command. Remains on Precedex. Getting Dilaudid. Fair urine output. Has a air leak in the pigtail. Minimal output through the chest tube. RAYA drain continues to have an output. at the bedside. January 16, 2024: ICU. On the ventilator FiO2 30 and a PEEP of 5. Pressure support mode. Wound VAC remains in place. J-tube site continues to have output. RAYA drain putting out output. Remains on pressors Precedex and getting Dilaudid. Antibiotics per ID. Patient being planned to go home tomorrow with home hospice. at the bedside. Had no further questions. Being followed by social services designee David and home hospice team from [facility] The plan for tomorrow currently is as follows: -Hospice arranging for transport with portable ventilator, to home with family -Antibiotics as discussed with ID will be discontinued -Wound VAC to be removed prior to discharge per surgery -RAYA drain to remain in place with dressing changes at the J-tube site. Dressing changes at the incision site per surgery. -TPN lipids will be discontinued prior to discharge -Patient to be taken off Precedex by r investigator vice January 21, 2024: ICU. Ventilator FiO2 30 and a PEEP of 5. Precedex drip. Sinus rhythm. Does wake up and follow commands. Weak in the limbs. Very little output through the RAYA drain. Wound VAC in place. Requiring Dilaudid for pain control close to every 2 hours. Over the weekend patient and family dec ided not for hospice. Patient is now full code instructions. Looking at long- term placement. Patient on tobramycin and ciprofloxacin and Diflucan per ID. Patient and daughter at the bedside.. Physical therapy in the room for passive movements. Family being educated. Since yesterday patient has been on pressure support./CPAP. Getting TPN lipids. January 22, 2024: ICU. Patient was on CPAP this morning. Plan was to take him to trach only this afternoon. Getting IV Precedex. Awake. Moves his head to command. Was able to move his right arm. Wound VAC remains in place. Right c hest tube/pigtail catheter in place. Some air leak. Minimal output from the right RAYA drain. Secretions persist through the left J-tube site. at the bedside. Spoke to the social services designee David. Looking into long-term placement. 01/23/24 Patient is evaluated in the ICU at the bedside. Feels anxious today, precedex is being weaned. He is awake alert. He is edematous. Abdominal wound vac in place. Right chest tube/pigtail in place. 55 ML of drainage overnight. Right sided RAYA drain. J tube in place. On TPN. He is pending approval for [facility] specialty vs. [facility]. Blood work today reveals a sodium level of 131. Continues on IV Ciprofloxacin/ IV fluconazole. 01/24/2024 Patient remains in the intensive care unit as remains at the bedside. He was weaned off the Precedex today did receive a dose of Ativan this morning however his mood has much improved. Abdominal wound VAC in place with evidence of purulent drainage in the canister. He has had 15 mL of drainage overnight from the right sided chest tube. J-tube remains in place. He continues on TPN. He continues on IV ciprofloxacin and IV fluconazole with plans for repeat abdominal pelvis CT today by infectious disease and consider discontinuation of antibiotics afterwards. Sodium level today is 130. Still pending approval for discharge to LTAC versus [facility]. 01/25/2024 Patient remains in the intensive care unit he continues off IV Precedex at this time. Continues with TPN. Repeat chest abdomen pelvis CT completed yesterday which shows a decrease seen in the hydropneumothorax within the right lung base with drainage catheter there is no change in the bibasilar infiltrates and small left effusion. There is interval development of a dilated small bowel loop in the mid abdomen consistent with either a focal ileus or partial obstruction. There are findings suggestive of acute diverticulitis of the sigmoid colon with a small pericolic phlegmon abscess however is decreasing in the interval from compared in the prior study from 3.4 cm to 3 cm. There is moderate anasarca and the peritoneal dialysis catheter and small bowel drainage tube unchanged in position. Blood work today reveals a white blood cell count of 20.1, hemoglobin 8.3, sodium 131, BUN of 21, creatinine 0.66, magnesium 1.7. He is on IV Cipro. IV Flagyl was added today by infectious disease. Was made a full code at request of family. 01/26/2024 Patient remains in the ICU. More awake alert and oriented today. He continues on the trach collar. Sounds less congested. Continues on IV cipro and IV flagyl. White blood cell count better today at 16.3. Hgb 7.2. Sodium 130, potassium 3.4. Continues on TPN. 01/27/2024 Patient is seen in follow-up continues to be in the ICU with multiple consultations following. Family at the bedside and patient is more awake although continues with bronchial congestion and frequent suctioning with the trach collar. Patient remains off Precedex. Patient continues on antibiotics for possible lung abscess that was positive for Pseudomonas with a persistent air leak. Minimal output of the pigtail catheter noted. FiO2 is 40% trach collar maintained on 10 L oxygen. Patient continues on TPN and will adjust accordingly per dietary and pharmacy. Overall prognosis remains extremely poor. Patient remains full code. Per nursing staff patient was denied from [facility] with case management/social work following. 01/28/2024 Patient is eval in follow-up today in the intensive care unit. He had an axillary temp 101.6 for this reason a septic protocol was done including urinalysis blood cultures and viral panel. He remains on IV cipro and IV flagyl. Airleak to the chest tube remains to suction. He continues on a trach collar 40% FiO2 with oxygen at 8 L. He continues on TPN and lipids adjustments per dietary and pharmacy. We are currently not using the J-tube for feedings at this time. He has a wound VAC in place to the midline abdominal incision. He is more awake alert and oriented and less agitated. Sodium level today is 133. Renal function is within normal limits. 01/29/2024 Patient is evaluated today in the ICU with family at the bedside. He continues to have elevated temps. He is more lethargic. White count 20.2 today. Septic work up started. Repeat urinalysis not overly suggesting of infection. Viral panel negative. Chest xray today reveals patchy and confluent bilateral airspace disease similar to slightly worsened. Right-sided pleural catheter demonstrated. There is similar small right pleural effusion. He was started on IV vancomyin, IV meropenem and IV metronidazole. The cipro has been discontinued. Lactic acid 2.3. Sodium 134, renal function normal. Hgb 7.6. Tube feedings remain on hold. Not safe to restart and he continues on TPN/Lipids. 01/30/2024 Patient evaluated today in follow up. Remains in the ICU. Underwent bronchoscopy and repair of a tear in the tracheostomy cuff. Deep sputum culture pending. Patient remains on the mechanical ventilator with ABGs today showing pH level of 0.33, pCO2 of 59, pO2 of 152, HCO3 of 41, total CO2 of 33, hemoglobin 6.6. Lactic acid has normalized. White blood cell count 19.3 today hemoglobin 7.3. Patient is continued on IV propofol as well as backs. Continues on antibiotics in the form of IV vancomycin, IV meropenem, IV metronidazole. Continues on TPN lipids. Chest xray improved throughout both lung ramirez with mild improved aeration at the right lung base. No pneumothorax present. Right-sided chest tube remains in place to suction. 01/31/2024 Patient evaluated today in follow up in the intensive care unit. Remains on the mechanical ventilator, 50% FiO2. Family at the bedside and hoping for extubation today. Continues on TPN/Lipids. Labs today reveal white blood cell count 15.4, hgb 7.0, platelet count 169. Sodium 136, potassium 5.4. BUN 29, creatinine 0.61. Chest xray today reveals ongoing multifocal patchy and confluent airspace disease. A small to moderate right pleural effusion may be slightly increased. Sputum culture from bronchoscopy continues to show pseudomonas. Chest tube remains in place. on IV vancomycin and IV meropenem. 02/01/2024 Evaluated today in follow-up in the intensive care unit. Patient remains on mechanical ventilator with a 50% FiO2. His repeat sputum cultures from the bronchoscopy continue to show Pseudomonas. He continues on IV vancomycin and IV meropenem infectious diseases following closely. He continues with a wound VAC to his midline abdominal incision. Per surgery they feel that the fistula from his J-tube is mature he is currently off of tube feedings at this time though continues on TPN lipids. White blood cell count today is 15.3, hemoglobin 7.2, sodium 140, potassium 5.0, BUN of 33, creatinine 0.59. 2.0 mL of drainage over the last couple days. His chest x-ray today reveals no change in the marked diffuse cardiopulmonary process including scattered interstitial and partially consolidative infiltrates and bilateral pleural effusions which remain unchanged as compared to prior. 02/02/2024 Patient is evaluated today in follow-up in the intensive care unit. Patient remains in the mechanical ventilator with an FiO2 of 50%. His repeat sputum cultures are showing Pseudomonas now with drug resistance Pseudomonas is susceptible to amikacin and tobramycin with intermediate susceptibility to Zosyn and gentamicin. Antibiotics have been adjusted to Tobramycin and IV zosyn. February 03, 2024: I resumed care of the patient today. ICU. I was away last week. Patient had a tracheostomy leak. Underwent a bronchoscopy. And went back on the ventilator. Currently FiO2 5040% and a PEEP of 5. Drips include Precedex. Also getting TPN lipids. Patient getting Dilaudid 0.5 mg every 3 hours. And also Toradol. Good urine output. Right-sided RAYA drain was removed on January 27. Chest tube drain has minimal output. Patient continues to leak from the left-sided G-tube site. Patient's abdomen is rather distended. Surgery will be evaluating the patient today. Patient's and daughter at the bedside. That questions regarding the abdomen will defer the same to surgical team. Patient is extremely high risk for any surgery. Spoke to David the correctional case records supervisor. As of now LTAC had declined the patient. Patient also has a stage III on the buttock. Patient has a Shiley #8 tracheostomy tube. Checks x- ray today shows extensive interstitial and patchy bilateral infiltrates. New prominent air density below the diaphragm no peritoneum was to be excluded. Patient's bronchoscopy results show multidrug-resistant Pseudomonas. Patient has been treated with Zosyn and tobramycin-currently getting both.. Patient is awake. Attempts to talk. Able to follow commands. February 04, 2024: ICU. and the daughter at the bedside. is rather tearful. Yesterday evening Dr. Irby from surgery said surgical intervention highly risky including poor outcome. Second opinion was obtained from Dr. Pompa this morning. Also recommended possible hospice. Dr. Russ from pulmonary also spoke to the family. Prognosis remains poor. CT scan abdomen yesterday during showed large pneumoperitoneum. NG tube to suction. On propofol. Patient sedated. Sinus rhythm. Right-sided chest tube remains in place. J-tube site to gravity drainage. Getting TPN lipids. I also suggested comfort measures. February 04: ICU. Saw the patient this morning. and assist at the bedside. Remains on propofol. IVs include TPN and liquids. Right chest tube remains in place. Left-sided J-tube to drainage to gravity. On the ventilator with FiO2 40 and a PEEP of 5. Lethargic but able to follow some commands. Active Medications Albuterol/Ipratropium (Ipratropium-Albuterol 3 Ml Neb) 3 ml INHALATION RT-QID [facility] Last Admin: 02/05/24 15:25 Dose: 3 ml Albuterol/Ipratropium (Ipratropium-Albuterol 3 Ml Neb) 3 ml INHALATION RT-Q2H PRN PRN Reason: Shortness Of Breath Or Wheezing Last Admin: 02/02/24 04:31 Dose: 3 ml Benzocaine (Benzocaine Hayes 1 Can) 1 spray MUCOUS MEM TID PRN; Protocol PRN Reason: Mouth Irritation Bisacodyl (Bisacodyl 10 Mg Supp) 10 mg RECTAL DAILY [facility] Last Admin: 02/05/24 10:13 Dose: Not Given Dextrose/Water (Dextrose 50% Syringe 50 Ml) 25 ml IVP PER PROTOCOL PRN; Protocol PRN Reason: Hypoglycemia Last Admin: 01/03/24 06:18 Dose: 25 ml Dextrose/Water (Dextrose 50% Syringe 50 Ml) 50 ml IVP PER PROTOCOL PRN; Protocol PRN Reason: Hypoglycemia Last Admin: 12/25/23 18:03 Dose: 50 ml Hydralazine HCl (Hydralazine Hcl 20 Mg/Ml 1 Ml Vial) 10 mg IVP Q6HR PRN PRN Reason: SBP >140 Last Admin: 02/03/24 13:10 Dose: 10 mg Hydromorphone HCl (Hydromorphone 0.5 Mg/0.5 Ml Syringe) 0.5 mg IVP Q3HR PRN PRN Reason: Pain Last Admin: 02/05/24 12:16 Dose: 0.5 mg Piperacillin Sod/Tazobactam (Sod 3.375 gm/ Sodium Chloride) 100 mls @ 25 mls/hr IVPB Q8HR [facility]; Protocol Last Admin: 02/05/24 18:00 Dose: 25 mls/hr Propofol 1,000 mg/ IV Solution 100 mls @ 9.63 mls/hr IV .[id number] [facility]; Protocol Last Admin: 02/05/24 18:00 Dose: 45 mcg/kg/min, 28.89 mls/hr Tobramycin Sulfate 160 mg/ (Sodium Chloride) 104 mls @ 104 mls/hr IVPB Q24H [facility] Last Admin: 02/05/24 10:12 Dose: 104 mls/hr Parenteral Vitamin Supplement 10 ml/ Zinc/Copper/Manganese/Selenium 1 ml/ Sodium Acetate 50 meq/ Magnesium Sulfate 1.5 gm/ Potassium Phosphate 3 mmol / Sodium Chloride 72 meq/Calcium Gluconate 1 gm/Potassium Chloride 40 meq/Amino Acids/Dextrose 1,088 mls @ 45 mls/hr IV .Q24H [facility] Last Admin: 02/05/24 04:01 Dose: 45 mls/hr Potassium Chloride 20 meq/ IV (Solution) 100 mls @ 50 mls/hr IVPB Q2H [facility]; Protocol Stop: 02/05/24 22:59 Last Admin: 02/05/24 18:09 Dose: 50 mls/hr Insulin Aspart (Insulin Aspart (Novolog) 100 Unit/Ml Vial) 0 unit SQ 0000,0600,1200,1800 [facility]; Protocol Last Admin: 02/05/24 17:58 Dose: Not Given Ketorolac Tromethamine (Ketorolac 15 Mg/Ml 1 Ml Vial) 15 mg IVP Q6HR PRN PRN Reason: Pain Stop: 02/06/24 17:52 Last Admin: 02/04/24 16:57 Dose: 15 mg Lidocaine HCl (Lidocaine 2% (Pf) 20 Mg/Ml 5 Ml Vial) 60 mg INHALATION Q6HR PRN PRN Reason: Dyspnea Last Admin: 02/01/24 00:29 Dose: 60 mg Lorazepam (Lorazepam 2 Mg/Ml Inj) 1 mg IV Q6HR PRN PRN Reason: Anxiety Last Admin: 02/03/24 13:49 Dose: 1 mg Miscellaneous Information (Phosphorus Replacement Protoco 1 Each Misc) 1 each MISCELLANE DAILY PRN; Protocol PRN Reason: Per Protocol Miscellaneous Information (Magnesium Replacement Protocol 1 Each Misc) 1 each MISCELLANE DAILY PRN; Protocol PRN Reason: Per Protocol Miscellaneous Information (Potassium Replacement Protocol 1 Each Misc) 1 each MISCELLANE DAILY PRN; Protocol PRN Reason: Per Protocol Miscellaneous Information (Tobramycin Peak Due 1 Each Misc) 1 each MISCELLANE ONCE ONE Stop: 02/06/24 10:31 Miscellaneous Information (Tobramycin Trough Due 1 Each Misc) 1 each MISCELLANE ONCE ONE Stop: 02/06/24 08:31 Multi-Ingred Cream/Lotion/Oil/Oint (Hydrophilic Cream 180 Gm Tube) 1 applic TOPICAL BID [facility]; Protocol Last Admin: 02/05/24 10:13 Dose: 1 applic Multi-Ingredient Ointment (Zinc Oxide 20% Oint 28.4 Gm Tube) 1 applic TOPICAL BID PRN; Protocol PRN Reason: Skin Irritation Naloxone HCl (Naloxone 0.4 Mg/Ml 1 Ml Vial) 0.2 mg IV Q2M PRN PRN Reason: Opioid Reversal Ondansetron HCl (Ondansetron 4 Mg/2 Ml Vial) 4 mg IVP Q6HR PRN PRN Reason: Nausea And Vomiting Last Admin: 01/23/24 17:28 Dose: 4 mg Pantoprazole Sodium (Pantoprazole 40 Mg/10 Ml Vial) 40 mg IVP BID [facility] Last Admin: 02/05/24 10:12 Dose: 40 mg Petrolatum (Zinc Oxide Paste (Z-Guard) 1 Applic) 1 applic TOPICAL BID [facility]; Protocol Last Admin: 02/05/24 10:13 Dose: 1 applic Past medical history to include: GERD Social history: . No smoking. Physical examination: VITAL SIGNS: 98.2, 60, 22, 119 x 52, 95% room air GENERAL: Lethargic EYES: Pupils equal. , tracking Conjunctiva edouard l. HEENT: External appearance of nose and ears normal, tracheostomy-. NG tube to intermittent suction NECK: JVD unable to assess; masses not palpable. HEART: First and second heart sounds are normal; edema, present LUNGS: Respiratory rate increased, decreased breath sounds right chest wall pigtail catheter ABDOMEN: Soft, some tenderness. Liver spleen not palpable, no masses palpable..jejunostomy tube-dressing in place, . RAYA drain. Incision with s titches with - wound VAC PSYCH: Unable to assess NEURO: Lethargic INVESTIGATIONS, reviewed in the clinical context: February 04: White count 13.4 hemoglobin 7.1 platelets 336 potassium 3[address] abdomen pelvis [February 02] massive pneumoperitoneum with possibly right lower quadrant large bowel and/or small bowel perforation. Hyperemia and wall thickening of the cecum and ascending colon. February 03: White count 8.6 hemoglobin 7.8 platelets 354 potassium 3.1 BUN 39 creatinine 0.62 Sputum [January 21] Pseudomonas aeruginosa-multiple drug-resistant February 02: White count 16.5 hemoglobin 8.6 platelets 385 sodium 142 potassium 3.1 BUN 37 creatinine 0.65 January 21: White count 14.9 hemoglobin 7.9 platelets 399 potassium 3[address] abdomen pelvis [January 05]: 3.1 cm organized fluid collection within the rectovesicular space concerning for abscess. No change in right upper lung 4.9 cm fluid collection with a fluid level. For possible pulmonary abscess. Moderate size right lung base multiloculated hydropneumothorax possibly abscess. Additional areas of air bronchograms. January 05: White count 10.6 hemoglobin 7.6 platelets 111 sodium 137 potassium 3.5 BUN 44 creatinine 0.95 January 03: White count 13.4 hemoglobin 8.1 platelets 95 potassium 5.2 creatinine 1.1 albumin 1.8 Sputum culture [December 24] Citrobacter freundii, Pseudomonas aeruginosa Blood culture [December 24] Staphylococcus pettenkoferi December 24: White count 1.5 hemoglobin 8.2 platelets 106 potassium 3.8 BUN [address] chest abdomen without contrast [December 16] right upper lung cavitary lesion with air-fluid level in the posterior aspect and a larger cavitary lesion possibly within the lung parenchyma itself. Extending down towards the diaphragm additional airspace opacities in the left lung base. December 09: White count 26.1 hemoglobin 8.6 platelets 154 potassium 4.1 BUN 86 creatinine 3.31. Hemoglobin this morning was 6.6 prior to transfusion EEG-evidence of generalized cerebral dysfunction and sporadic intermittent higher amplitude sharply contoured waves mainly bifrontal. Showing cortical irritability. 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 Serosal fibrous adhesions. Viable margins. Sputum culture: [November 25]: Citrobacter freundii. Pseudomonas aeruginosa November 20: White count 14.4 hemoglobin 8.8 platelets 229 potassium 4.1 BUN [address] scan abdomen [November 19] possible small bowel obstruction Stool: C. difficile negative November 15: WBC 13 hemoglobin 7.7 platelets 248 potassium 4.3 creatinine 0.87 2D echo: EF 55 to 60%. Kidneys bladder: Unremarkable November 13: White count 12 hemoglobin 6.9 platelets 276 potassium 4.4 creatinine 1.21 magnesium 1.8 iron 6 TIBC 365% saturation 1.64 transferrin 261 ferritin 34.6 B12 569 folate 4.4 November 11: Creatinine 0.86 EGD: Large amount of retained solid liquid food noted in the stomach. Large superficial gastric antral ulceration involving most of the antrum extending into the pylorus causing pyloric stenosis. Biopsies were obtained. Chest x-ray film personally reviewed by me-scattered infiltrates Assessment plan: -Aspiration and gram-negative bacterial pneumonia a bilateral initially from retained gastric contents mostly food and liquids, causing acute hypoxic respiratory failure: On presentation: Subsequent bacterial pneumonia and lung abscess sputum culture November 25: Citrobacter freundii, Pseudomonas aeruginosa. December 13: Klebsiella oxytoca, Pseudomonas aeruginosa. December 29: Multidrug-resistant Pseudomonas aeruginosa IV meropenem-, IV Zosyn.IV ceftolozane/tazobactam, IV daptomycin, tobramycin- all discontinued Currently getting IV Zosyn and tobramycin -Large pneumoperitoneum likely from perforation. Has been told by Dr. Peñaloza and Dr. Pompa from surgery/[second opinion]. Extremely high risk for any surgery. Very poor outcome. Suggest comfort measures -Intermittent asynchronous with the ventilator. -January 28 patient underwent tracheostomy tube exchange and bronchoscopy with lavage by Dr. Love for a leak around the tracheostomy tube. Patient is a #8 Shiley tracheostomy tube. An air leak was resolved Previously had a leak. Currently resolved -Pain, multifactorial Getting Dilaudid every 3 hours with Toradol -Sepsis with septicemia from above Patient received multiple antibiotics -Right l lung abscess, pigtail catheter placed January 07, 2024. Initially about 200 cc of pus obtained. During the procedure large amount of pus poured out of the tracheostomy site when patient was rolled on the left side. Status post bronchoscopy with some lavage on 01/07/2024 - lung abscess larger 1 on the right side-patient cultures are growing Pseudomonas and Klebsiella oxytoca: , Received other antibiotics. Currently on Zosyn and tobramycin -Acute pulmonary edema and fluid overload from hypoalbuminemic state and fluids from IV.:: Has been getting Lasix and dialysis: Both held -Altered mentation. Possibly encephalopathy. Could be delirium.: Improvement CT brain [December 06] nothing acute Neurology following EEG-evidence of generalized cerebral dysfunction and sporadic intermittent higher amplitude sharply contoured waves mainly bifrontal. Showing cortical irritability. Keppra was started on December 07 -Critical care poly- Pedro neuropathy: Slow to respond PT OT -Gallstones, asymptomatic -Small l bowel perforation at site of jejunostomy tube tip with balloon..: Portion of small bowel resected. On November 24. New J-tube was placed.- drainage to gravity:-Now discontinued December 19: J-tube blocked. J-tube replaced on December 20 over wire December 21: Leaking around the J-tube site. Feeding held December 23: J feeding was started yesterday evening but again started leaking increasingly around the J-tube site-feeding held again December 24: J-tube feeding has been held. Patient is currently having increased drainage from the J-tube site -Acute kidney injury. Possible ATN from hypotensive shock: Resolved Renal ultrasound unremarkable. Started on renal replacement therapy on November 28. Last hemodialysis on December 17. Being followed by an nephrology. Good urine output. -Nutrition Jejunostomy tube placed November [address] Ewing Received TPN-this was discontinued. TPN lipids restarted on December 24 -Midline abdominal incision wound dehiscence Wound VAC in place -Acute recurrent atrial fibrillation-converted to sinus rhythm Received IV amiodarone. Cardiology following -Acute hypoxic respiratory failure from aspiration pneumonia, status post ventilator assisted: Reintubated November 25. FiO2 35 PEEP of 5 Tracheostomy tube-by Dr. Zepeda on December 09 Tracheostomy tube changed to #8 Shiley on January [address] Love -Septic shock, recovered -Hypertension, recurrent Had received Cleviprex. Hydralazine added -Intermittent hypotension: Corrected Intermittent use of Levophed. 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 Also anemia of blood draw. Iron deficiency anemia Received total of 8 units of blood IV iron. -Severe thrombocytopenia. Would consider coagulation disorder secondary to infection., In the setting of underlying lymphoma.: Fluctuating with infection: Improved Hematology following. 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 difficile ruled out. -Large superficial gastric antral ulceration involving the gastric antrum extending into the pylorus with gastric outlet obstruction. 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 -DNR made on January 12. Now full code with instructions on January 17. Patient is full code now Continue current treatment plan. Prognosis remains very poor. Hospice has been suggested. Several times. By several physicians. Past Medical History Past Medical History: GERD/Reflux History of Any Multi-Drug Resistant Organisms: None Reported Past Surgical History: Heart Catheterization Additional Past Surgical History / Comment(s): colonsocopy,spinal injection, Past Anesthesia/Blood Transfusion Reactions: No Reported Reaction Past Psychological History: No Psychological Hx Reported Smoking Status: Never smoker Past Alcohol Use History: None Reported Past Drug Use History: None Reported
[2024-02-05 23:58] LABS: Glucose,Whole Blood 105 mg/dL (70-110)
[2024-02-06] MEDS: POTASSIUM CHLORIDE 20 MEQ in WATER FOR INJECTION 1 100ML.BAG IVPB SCH (02:10)
[2024-02-06 05:49] LABS: Glucose,Whole Blood 121 mg/dL (70-110)
[2024-02-06 05:54] LABS: ABG Base Excess 5.3 mmol/L; ABG HCO3 29 mmol/L (21-25); ABG Oxygen Saturation 99.9 % (94-97); ABG PCO2 38 mmHg (35-45); ABG PH 7.49 (7.35-7.45); ABG PO2 135 mmHg (83-108); ABG TCO2 30 mmol/L (19-24)
[2024-02-06 08:21] LABS: Glucose,Whole Blood 128 mg/dL (70-110)
[2024-02-06] MEDS: TOBRAMYCIN TROUGH DUE 1 EACH MISC MISCELLANE ONE (08:23)
[2024-02-06 08:43] LABS: Basophils % (A) 0 %; Eosinophils # (A) 0.3 k/uL (0-0.7); Eosinophils % (A) 3 %; HCT 24.1 % (39.0-53.0); HGB 7.7 gm/dL (13.0-17.5); Hypochromasia Moderate; Lymphocytes # (A) 2.3 k/uL (1.0-4.8); Lymphocytes % (A) 18 %; MCH 30.4 pg (25.0-35.0); MCHC 31.7 g/dL (31.0-37.0); MCV 95.6 fL (80.0-100.0); Mean Platelet Volume 8.2; Monocytes # (A) 0.5 k/uL (0-1.0); Monocytes % (A) 4 %; Neutrophils # (A) 9.2 k/uL (1.3-7.7); Neutrophils % (A) 74 %; Platelet Count 358 k/uL (150-450); RBC 2.52 m/uL (4.30-5.90); RDW 15.9 % (11.5-15.5); WBC 12.5 k/uL (3.8-10.6)
--- NOTE | 2024-02-06 09:16 | P.PN ---
Subjective Progress Note Date: 02/05/24 Principal diagnosis: Reason for follow-up is pneumonia and diverticulitis Patient is 73-year-old with male initial presentation to the hospital on 11/12/2023 after the patient did have aspiration while undergoing elective endoscopy, diagnosed with a non-Hodgkin lymphoma subsequently did have exploratory laparotomy for perforated small bowel, abdominal washout and feeding jejunostomy tube patient did require dialysis catheter placement for dialysis during this hospital stay which was subsequently discontinued, and tracheostomy for respiratory failure. On today's evaluation that is 02/05/2024,the patient has been afebrile patient remains to be intubated on the vent through the trach FiO2 is currently stable at 40% patient is hemodynamically stable not requiring any pressor support no vomiting or diarrhea has been reported. Patient white count is down to 13.4 creatinine 0.66 Objective - Vital Signs Vital signs: Vital Signs Temp 97.9 F 02/05/24 05:00 Pulse 88 02/05/24 07:52 Resp 20 02/05/24 07:00 BP 145/97 02/05/24 07:00 Pulse Ox 100 02/05/24 07:00 FiO2 40 02/05/24 07:41 Intake & Output 02/04/24 02/05/24 02/05/24 18:59 06:59 18:59 Intake Total 2916.158 1555.559 67.41 Output Total 1250 960 Balance 1666.158 595.559 67.41 Weight 105.4 kg 106.8 kg Intake: IV 750 581 0.9 Normal Saline @ KVO 240 260 Fat Emulsion 20% 250 ml 210 21 In Empty Bag 1 bag @ 21 mls/hr IV TuThSa@0900 [facility] Rx#:[id number] Piperacillin-Tazobactam 3 100 .375 gm In Sodium Chloride 0.9% 100 ml @ 25 mls/hr IVPB Q8HR [facility] Rx# :[id number] Potassium Chloride 20 meq 100 In Water For Injection 1 100ml.bag @ 50 mls/hr IVPB Q2H [facility] Rx#: [id number] Potassium Chloride 20 meq 300 In Water For Injection 1 100ml.bag @ 50 mls/hr IVPB Q2H [facility] Rx#: [id number] Tobramycin Sulfate 160 mg 100 In Sodium Chloride 0.9% 100 ml @ 104 mls/hr IVPB Q8HR [facility] Rx#:[id number] Intake, IV Titration 1506.158 389.559 67.41 Amount Mvi, Adult No.4 with Vit 1037 K 10 ml Trace (Conc-1Ml/ Dose) 1 ml Sodium Acetate 44 meq Magnesium Sulfate gm 1.25 gm Potassium Phosphate 3 mmol Sodium Chloride 4Meq/ml Vial 60 meq Calcium Gluconate 1 gm In Amino Acids 5 %/ Dextrose 20 % 1,000 ml @ 85 mls/hr IV .BY DURATION [facility] Rx#:[id number] Piperacillin-Tazobactam 3 100 .375 gm In Sodium Chloride 0.9% 100 ml @ 25 mls/hr IVPB Q8HR [facility] Rx# :[id number] Potassium Chloride 20 meq 100 In Water For Injection 1 100ml.bag @ 50 mls/hr IVPB Q2H [facility] Rx#: [id number] propofoL 1,000 mg In 269.158 389.559 67.41 Empty Bag 1 bag @ 15 MCG/ KG/MIN 9.63 mls/hr IV . [id number] [facility] Rx#:[id number] TPN/PPN 660 585 TPN 660 585 Output: Chest Tube Drainage 0 0 Chest Tube Right 0 0 Gastric Drainage 300 200 Drainage 290 125 Medial Abdomen 290 125 Urine 660 635 Other: Voiding Method Indwelling Catheter Indwelling Catheter # Bowel Movements 1 1 ABP, PAP, CO, CI - Last Documented Arterial Blood Pressure 173/76 - Exam GENERAL DESCRIPTION: An elderly male intubated with trach RESPIRATORY SYSTEM: Unlabored breathing , coarse breath sounds anteriorly HEART: S1 S2 regular rate and rhythm , ABDOMEN: Soft , abdominal distention and tenderness EXTREMITIES: No edema feet - Labs CBC & Chem 7: 02/06/24 08:20 02/06/24 00:20 Labs: Abnormal Lab Results - Last 24 Hours (Table) 02/04/24 02/04/24 02/04/24 Range/Units 12:03 16:38 18:00 ABG pH (7.35-7.45) ABG HCO3 (21-25) mmol/L ABG Total CO2 (19-24) mmol/L ABG O2 Saturation (94-97) % Hemoglobin (13.0-17.5) gm/dL Potassium 3.0 L (3.5-5.1) mmol/L POC Glucose (mg/dL) 169 H 143 H (70-110) mg/dL 02/05/24 02/05/24 02/05/24 Range/Units 00:30 05:08 05:38 ABG pH 7.50 H (7.35-7.45) ABG HCO3 31 H (21-25) mmol/L ABG Total CO2 32 H (19-24) mmol/L ABG O2 Saturation 98.5 H (94-97) % Hemoglobin 6.9 L* (13.0-17.5) gm/dL Potassium (3.5-5.1) mmol/L POC Glucose (mg/dL) 133 H 116 H (70-110) mg/dL Assessment and Plan (1) Sepsis Current Visit: Yes Status: Acute Code(s): A41.9 - SEPSIS, UNSPECIFIED ORGANISM SNOMED Code(s): 99148086 (2) Pneumonia Current Visit: Yes Status: Acute Code(s): J18.9 - PNEUMONIA, UNSPECIFIED ORGANISM SNOMED Code(s): 553227967 (3) Bacteremia Current Visit: Yes Status: Acute Code(s): R78.81 - BACTEREMIA SNOMED Code(s): 0098754 (4) Peritonitis Current Visit: Yes Status: Acute Code(s): K65.9 - PERITONITIS, UNSPECIFIED SNOMED Code(s): 15983762 Plan: 1 the patient did have a new fever also noticed to have worsening of his respiratory status concerning for pneumonia 2repeat blood culture have been negative sputum culture from 1127 is growing drug-resistant Pseudomonas aeruginosa sensitive only to tobramycin amikacin intermediate sensitive to Zosyn patient also have a bronchoscopy on 1128 that specimen is growing Pseudomonas with multidrug resistant pattern and intermediate to Zosyn sensitive to amikacin and tobramycin 3patient did have CT abdominal pelvis with evidence of large pneumoperitoneum concerning for possible large/small bowel perforation patient has been evaluated by Dr. subramanian for a second opinion from surgical standpoint and has been co nsidered high risk for any surgical intervention, surgery is documented this to be contained perforation however I explained to the patient family even with a contained perforation the chances of patient healing survival are still low without any drainage of that contained perforation or getting a sample for the microbiological diagnosis as we already have documentation of the patient being colonized and infected with a multidrug-resistant Pseudomonas aeruginosa from a sputum culture which is only intermediate to Zosyn and sensitive to tobramycin with the patient is currently on and the chances that he will improve with antibiotic therapy and with his very minimal I have discussed this case in detail with the admitting physician as well as with Dr. Irby and Dr. subramanian Dictation was produced using [employer] dictation software. please excuse any grammatical, word or spelling errors. Time with Patient: Greater than 30
--- NOTE | 2024-02-06 09:19 | XR ---
EXAMINATION TYPE: XR chest 1V portable DATE OF EXAM: 02/06/2024 5:59 AM COMPARISON: 02/05/2024 CLINICAL INDICATION: Male, 73 years old with history of mechanical ventilation, , FINDINGS: Interval placement of tracheostomy cannula. NG tube courses below the diaphragm. Right anterior chest wall injection port with catheter tip possibly now within the IVC below the heart. Left PICC tip lik matilde in the right atrium. Right-sided pleural catheter noted. Heart remains mildly enlarged. Multifoca l diffuse interstitial and patchy opacities persists. Small right pleural effusion persists. IMPRESSION: 1. Ongoing diffuse interstitial and multifocal patchy airspace disease. 2. Note low positioning of the right anterior chest wall injection port catheter tip [facility], , 02/06/2024 9:17 AM
[2024-02-06 09:32] LABS: ALT 17 U/L (4-49); AST 28 U/L (17-59); African American GFR (CKD) >90 (>60 ml/min/1.73 sqM); Albumin 2.2 g/dL (3.5-5.0); Alkaline Phosphatase 270 U/L (38-126); Anion Gap 5 mmol/L; Blood Urea Nitrogen 26 mg/dL (9-20); Calcium 7.7 mg/dL (8.4-10.2); Carbon Dioxide 28 mmol/L (22-30); Chloride 109 mmol/L (98-107); Glucose 120 mg/dL (74-99); Non-African American GFR(CKD) >90 (>60 ml/min/1.73 sqM); Potassium 3.9 mmol/L (3.5-5.1); Sodium 142 mmol/L (137-145); Total Bilirubin 0.7 mg/dL (0.2-1.3)
[2024-02-06 13:04] LABS: Glucose,Whole Blood 124 mg/dL (70-110)
[2024-02-06] MEDS: TOBRAMYCIN PEAK DUE 1 EACH MISC MISCELLANE ONE (13:04)
--- NOTE | 2024-02-06 14:03 | P.PN ---
Subjective Progress Note Date: 02/06/24 Principal diagnosis: Reason for follow-up is pneumonia and diverticulitis Patient is 73-year-old with male initial presentation to the hospital on 11/12/2023 after the patient did have aspiration while undergoing elective endoscopy, diagnosed with a non-Hodgkin lymphoma subsequently did have exploratory laparotomy for perforated small bowel, abdominal washout and feeding jejunostomy tube patient did require dialysis catheter placement for dialysis during this hospital stay which was subsequently discontinued, and tracheostomy for respiratory failure. On today's evaluation that is 02/06/2024,the patient remains to be afebrile, patient is on ventilator through the trach FiO2 is currently stable at 35% patient is hemodynamic stable not requiring any pressor support no other changes reported by the nursing staff. The patient white count is down to 12.5 creatinine 0.66 tobramycin trough is 1.2 Objective - Vital Signs Vital signs: Vital Signs Temp 98.6 F 02/06/24 00:00 Pulse 83 02/06/24 13:01 Resp 23 02/06/24 13:00 BP 139/87 02/06/24 13:00 Pulse Ox 98 02/06/24 13:00 FiO2 35 02/06/24 11:20 Intake & Output 02/05/24 02/06/24 02/06/24 18:59 06:59 18:59 Intake Total 983.890 1769.632 630 Output Total 1036 1140 1040 Balance -39.474 1962.632 -410 Weight 107.5 kg Intake: IV 220 1160 530 0.9 Normal Saline @ KVO 220 260 60 Piperacillin-Tazobactam 3 100 100 .375 gm In Sodium Chloride 0.9% 100 ml @ 25 mls/hr IVPB Q8HR [facility] Rx# :[id number] Potassium Chloride 20 meq 800 In Water For Injection 1 100ml.bag @ 50 mls/hr IVPB Q2H [facility] Rx#: [id number] TPN 270 Tobramycin Sulfate 160 mg 100 In Sodium Chloride 0.9% 100 ml @ 104 mls/hr IVPB Q24H [facility] Rx#:[id number] Intake, IV Titration 645.573 4514.632 100 Amount Mvi, Adult No.4 with Vit 1083 K 10 ml Trace (Conc-1Ml/ Dose) 1 ml Sodium Acetate 50 meq Magnesium Sulfate gm 1.5 gm Potassium Phosphate 3 mmol Sodium Chloride 4Meq/ml Vial 72 meq Calcium Gluconate 1 gm Potassium Chloride 40 meq In Amino Acids 5 %/ Dextrose 20 % 1,000 ml @ 45 mls/hr IV .Q24H [facility] Rx #:[id number] propofoL 1,000 mg In 281.526 274.632 100 Empty Bag 1 bag @ 15 MCG/ KG/MIN 9.63 mls/hr IV . [id number] [facility] Rx#:[id number] TPN/PPN 495 585 TPN 495 585 Output: Chest Tube Drainage 0 0 0 Chest Tube Right 0 0 0 Gastric Drainage 200 Drainage 160 40 0 Medial Abdomen 160 40 0 Urine 441 198 4563 Stool 1 Other: Voiding Method Indwelling Catheter Indwelling Catheter Indwelling Catheter ABP, PAP, CO, CI - Last Documented Arterial Blood Pressure 168/81 - Exam GENERAL DESCRIPTION: An elderly male intubated with trach RESPIRATORY SYSTEM: Unlabored breathing , coarse breath sounds anteriorly HEART: S1 S2 regular rate and rhythm , ABDOMEN: Soft , abdominal distention and tenderness EXTREMITIES: No edema feet - Labs CBC & Chem 7: 02/06/24 08:20 02/06/24 08:20 Labs: Abnormal Lab Results - Last 24 Hours (Table) 02/05/24 02/05/24 02/05/24 Range/Units 12:26 13:17 15:38 WBC 13.4 H (3.8-10.6) k/uL RBC 2.38 L (4.30-5.90) m/uL Hgb 7.1 L D (13.0-17.5) gm/dL Hct 22.4 L (39.0-53.0) % RDW 16.1 H (11.5-15.5) % Neutrophils # 10.0 H (1.3-7.7) k/uL ABG pH (7.35-7.45) ABG pO2 (83-108) mmHg ABG HCO3 (21-25) mmol/L ABG Total CO2 (19-24) mmol/L ABG O2 Saturation (94-97) % Hemoglobin (13.0-17.5) gm/dL Potassium 1.9 L* 3.2 L (3.5-5.1) mmol/L Chloride 124 H 110 H (98-107) mmol/L Carbon Dioxide 17 L (22-30) mmol/L BUN 30 H (9-20) mg/dL Creatinine 0.40 L (0.66-1.25) mg/dL Glucose 124 H (74-99) mg/dL POC Glucose (mg/dL) (70-110) mg/dL Calcium 4.5 L* 7.5 L (8.4-10.2) mg/dL Phosphorus 2.4 L (2.5-4.5) mg/dL Magnesium 1.3 L (1.6-2.3) mg/dL Alkaline Phosphatase (38-126) U/L Total Protein 3.6 L (6.3-8.2) g/dL Albumin 1.1 L (3.5-5.0) g/dL 02/05/24 02/06/24 02/06/24 Range/Units 17:56 05:47 05:48 WBC (3.8-10.6) k/uL RBC (4.30-5.90) m/uL Hgb (13.0-17.5) gm/dL Hct (39.0-53.0) % RDW (11.5-15.5) % Neutrophils # (1.3-7.7) k/uL ABG pH 7.49 H (7.35-7.45) ABG pO2 135 H (83-108) mmHg ABG HCO3 29 H (21-25) mmol/L ABG Total CO2 30 H (19-24) mmol/L ABG O2 Saturation 99.9 H (94-97) % Hemoglobin 7.2 L (13.0-17.5) gm/dL Potassium (3.5-5.1) mmol/L Chloride (98-107) mmol/L Carbon Dioxide (22-30) mmol/L BUN (9-20) mg/dL Creatinine (0.66-1.25) mg/dL Glucose (74-99) mg/dL POC Glucose (mg/dL) 117 H 121 H (70-110) mg/dL Calcium (8.4-10.2) mg/dL Phosphorus (2.5-4.5) mg/dL Magnesium (1.6-2.3) mg/dL Alkaline Phosphatase (38-126) U/L Total Protein (6.3-8.2) g/dL Albumin (3.5-5.0) g/dL 02/06/24 02/06/24 02/06/24 Range/Units 08:18 08:20 08:20 WBC 12.5 H (3.8-10.6) k/uL RBC 2.52 L (4.30-5.90) m/uL Hgb 7.7 L (13.0-17.5) gm/dL Hct 24.1 L (39.0-53.0) % RDW 15.9 H (11.5-15.5) % Neutrophils # 9.2 H (1.3-7.7) k/uL ABG pH (7.35-7.45) ABG pO2 (83-108) mmHg ABG HCO3 (21-25) mmol/L ABG Total CO2 (19-24) mmol/L ABG O2 Saturation (94-97) % Hemoglobin (13.0-17.5) gm/dL Potassium (3.5-5.1) mmol/L Chloride 109 H (98-107) mmol/L Carbon Dioxide (22-30) mmol/L BUN 26 H (9-20) mg/dL Creatinine (0.66-1.25) mg/dL Glucose 120 H (74-99) mg/dL POC Glucose (mg/dL) 128 H (70-110) mg/dL Calcium 7.7 L (8.4-10.2) mg/dL Phosphorus (2.5-4.5) mg/dL Magnesium (1.6-2.3) mg/dL Alkaline Phosphatase 270 H (38-126) U/L Total Protein 6.0 L (6.3-8.2) g/dL Albumin 2.2 L (3.5-5.0) g/dL 02/06/24 Range/Units 13:03 WBC (3.8-10.6) k/uL RBC (4.30-5.90) m/uL Hgb (13.0-17.5) gm/dL Hct (39.0-53.0) % RDW (11.5-15.5) % Neutrophils # (1.3-7.7) k/uL ABG pH (7.35-7.45) ABG pO2 (83-108) mmHg ABG HCO3 (21-25) mmol/L ABG Total CO2 (19-24) mmol/L ABG O2 Saturation (94-97) % Hemoglobin (13.0-17.5) gm/dL Potassium (3.5-5.1) mmol/L Chloride (98-107) mmol/L Carbon Dioxide (22-30) mmol/L BUN (9-20) mg/dL Creatinine (0.66-1.25) mg/dL Glucose (74-99) mg/dL POC Glucose (mg/dL) 124 H (70-110) mg/dL Calcium (8.4-10.2) mg/dL Phosphorus (2.5-4.5) mg/dL Magnesium (1.6-2.3) mg/dL Alkaline Phosphatase (38-126) U/L Total Protein (6.3-8.2) g/dL Albumin (3.5-5.0) g/dL Assessment and Plan (1) Sepsis Current Visit: Yes Status: Acute Code(s): A41.9 - SEPSIS, UNSPECIFIED ORGANISM SNOMED Code(s): 99430701 (2) Pneumonia Current Visit: Yes Status: Acute Code(s): J18.9 - PNEUMONIA, UNSPECIFIED ORGANISM SNOMED Code(s): 676734939 (3) Bacteremia Current Visit: Yes Status: Acute Code(s): R78.81 - BACTEREMIA SNOMED Code(s): 5131269 (4) Peritonitis Current Visit: Yes Status: Acute Code(s): K65.9 - PERITONITIS, UNSPECIFIED SNOMED Code(s): 25480371 Plan: 1 the patient did have a new fever also noticed to have worsening of his respiratory status concerning for pneumonia 2repeat blood culture have been negative sputum culture from 1127 is growing drug-resistant Pseudomonas aeruginosa sensitive only to tobramycin amikacin intermediate sensitive to Zosyn patient also have a bronchoscopy on 1128 that specimen is growing Pseudomonas with multidrug resistant pattern and intermediate to Zosyn sensitive to amikacin and tobramycin 3patient did have CT abdominal pelvis with evidence of large pneumoperitoneum concerning for possible large/small bowel perforation patient has been evaluated by Dr. 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 please excuse any grammatical, word or spelling errors. Time with Patient: Less than 30
--- NOTE | 2024-02-06 14:03 | P.PN ---
Subjective Progress Note Date: 02/06/24 Principal diagnosis: Acute hypoxic respiratory failure requiring intubation mechanical ventilation secondary to aspiration. This is a 73-year-old white male with history of chronic abdominal pain for the last 8 months has been treated with Protonix 40 mg daily for the last 3 months with no improvement. Patient had a 22 pound weight loss in the last [address] of the abdomen and pelvis 3 weeks ago showed thickening of the antral wall with pathological adenopathy posterior to the stomach suspicious of neoplasm. Today the patient underwent elective upper endoscopy to evaluate further, patient received IV sedation by anesthesia endoscope was inserted into the mouth, esop hagus was intubated without any difficulty there was evidence of large amount of liquid and solid food noted in the stomach suggestive of gastric outlet obstruction. Scope could not be advanced through the pylorus, however in the prepyloric area there was a large superficial ulceration identified with multiple biopsies were done from this area. The body cardia and fundus could not adequately visualize because of large amount of retained food in the stomach. Scope was withdrawn back to the stomach and upon careful examination the mucosa of the antrum body and cardia as well as the fundus appeared normal. Procedure was being performed and biopsies were done patient threw up and subsequently became hypoxic there was clearly evidence of witnessed aspiration anesthesia intubated the patient, procedure was terminated, and the patient was transferred to the ICU, this consult was initiated. Patient is now on assist- control rate of 20 tidal volume 500 FiO2 70% PEEP of 10 ABG is pending, earlier ABG showed profound hypoxia patient is on propofol at 50 mcg/kg/min, next ABG is pending. Chest x-ray showed chronic changes without evidence of acute pulmonary disease. 01/10/2024, the patient is on low-dose Precedex. Currently comfortable, sensitive to mechanical ventilator. Output from the pigtail has dropped and the patient continues to have a positive airleak. The chest x-ray shows bilateral consolidation worse on the right and there is a small right apical pneumothorax. Pigtail catheter is in a good location. Blood gas showed a pH of 7.48 with a pCO2 of 35 and a pO2 of 83. He is on assist-control mode with rate of 20, tidal volume of 600, FiO2 30% with a PEEP of 5. RAYA drain output is serosanguineous. TPN is at 90 cc an hour. Fluid balance is -700 cc. The white cell count is at 15.4, hemoglobin is at 6.7 and the patient was given a unit of packed RBC and a platelet count is 188. Electrolytes show a BUN of 46 with a creatinine of 0.7, sodium of 135, potassium level of 3.3. Antibiotics has been modified to a combination of ciprofloxacin and tobramycin as the patient showed quinolone sensitive Pseudomonas in the sputum and in the drain the abscess from the right lung. On 02/01/2024, the patient is still on propofol and currently is off Nimbex. Propofol is running at 30 mcg/kg/min. He remains on assist-control mode of mechanical ventilation at rate of 28, tidal volume of 500, FiO2 50% with a PEEP of 6. Blood gases showed a pH of 7.44 with a pCO2 of 53 and pO2 of 115. Chest x-ray shows bilateral consolidation. No significant cavitation. No pneumoth orax. There is a right-sided pigtail catheter in place. No significant change in the patient has diffuse bilateral pneumonia. Bronchoscopy was done on 01/30/2024 was consistent with Pseudomonas aeruginosa. The patient remains on a combination of meropenem, vancomycin and Flagyl. He is afebrile. Hemodynamically stable. Cardiac rhythm is sinus. Continues to have leaks around his tracheostomy tube and I decided to exchange tracheostomy tube to XLT longer tracheostomy tube to prevent post leaks. The patient remains on TPN for nutritional support. Fluid balance is -2.3 L as the patient received diuretics yesterday. Continues to have edema in all 4 extremities. The white cell count is lower at 15.3 with a hemoglobin of 7.2 and a platelet count of 408. Sodium is at 140, bicarb is at 34, BUN 33 with a creatinine of 0.5. No other significant events overnight. He seems to be more arousable compared to yesterday. On 02/02/2024, the patient is on Precedex running at 1.1 mcg/kg/min. He is a bit restless. Awake and tries to talk while even being on the mechanical ventilator. He remains on assist-control mode of mechanical ventilation. He is on volume-cycled rate of 20, tidal volume of 500, FiO2 of 50% with a PEEP of 6. Blood gas showed pH of 7.38 with a pCO2 of 61 and pO2 115. Chest x-ray shows multifocal bilateral pneumonia consolidation. No pneumothorax. Pigtail cath eter still present in the right hemithorax and there is intermittent air leak. No significant output. Fluid balance is +1.1 L over the past 24 hours. The most recent bronchioloalveolar lavage obtained from this patient showed Pseudomonas aeruginosa. Nevertheless, sensitivities have been changed and is Pseudomonas aeruginosa is multidrug-resistant, there is intermediate sensitivity to Zosyn and tobramycin and based on that the patient was started on a combination of Zosyn and tobramycin. He remains on TPN for nutritional support rate of 90 cc an hour. Blood work shows a white cell count of 11.1, hemoglobin is down to 6.4 and a platelet count is at 233. BUN 34 with a creatinine of 0.6 and a sodium levels at 141 with a potassium level is a 3.9. Vancomycin has been discontinued. Abdominal exam remains unchanged. Patient was seen today on , remains in the ICU, remains intubated and mechanically ventilated, patient had a new tracheostomy placed because of leak from his previous tracheostomy this was done by Dr. Beckford on 02/01/24. He also had bronchoscopy and mucous plugs extraction on 01/28 and 01/04 0. Patient is on assist-control rate 20 tidal volume 620 FiO2 50% PEEP of 5 ABG showed a pO2 of 122 pCO2 44 pH of 7.49 hence FiO2 was cut down to 40%. Patient will be given a weaning trial with a pressure support of 14 and CPAP, however he only lasted few minutes and his respiratory rate was in the high 40s and tidal volume was not great. Patient had to be placed back on assist mode of mechanical ventilation shortly after. Remains on Precedex at 0.7, TPN at 90 cc/h patient received a unit of packed RBCs on 02/01 for hemoglobin of 6.4. His sputum continues to show Pseudomonas and this was from 01/29 remains on Zosyn. Continues to have right-sided pigtail catheter with ongoing air leak. Not ready to remove. No evidence of pneumothorax noted on the chest x-ray, continues to have bilateral airspace disease. WBC count is 16.5 hemoglobin 8.6, Basic met abolic profile is normal potassium 3.1 BUN is 37 creatinine 0.65 Seen today on 02/04/2024, ICU, intubated and mechanically ventilated, patient had a CT of the abdomen and pelvis yesterday done mostly because of worsening abdominal distention and abnormal findings on the chest x-ray is suggestive of free air under the hemidiaphragm. Indeed the patient was found to have perforated viscus and pneumoperitoneum. The main situation here is the fact that the patient is extremely poor surgical candidate, and he is critically ill, doubt if he would even survive this perforation with medical therapy. In the meantime the patient remains on antibiotics in the form of tobramycin and Zosyn surgery on the case clearly stated to the that surgical mortality is 100%, and they would not recommend surgical intervention. Family is also aware that medical therapy alone has very high mortality considering his overall condition. Patient has been on antibiotics all along, he is intubated and mechanically ventilated on AC mode of 20 tidal volume 620 FiO2 40% PEEP of 5 patient ABG showed a pO2 of 109 pCO2 43 pH of 7.51, chest x-ray continues to show hydropneumothorax and bilateral airspace disease. I had a long discussion with the family today at bedside and even suggested comfort care measures to the family, as mortality is extremely high either way. Family to make a decision on comfort care measures/hospice. Time continue antibiotics, continue TPN, continue propofol at 45 mcg/kg/min, patient is not in any shape to consider any form of weaning at this point considering this new abdominal findings/bowel perforation WBC count today is 18.6 hemoglobin 7.8 basic metabolic profile is normal potassium is a bit low at 3.1 BUN is 39 creatinine 0.60 Patient was evaluated today on 02/05/2024, remains in ICU, intubated mechanically ventilated on assist-control rate of 20 tidal volume 620 FiO2 40% PEEP of 5 ABG showed a pO2 of 91 pCO2 40 pH of 7.50 patient developed bowel perforation and pn eumoperitoneum day before yesterday, and he is on antibiotics, surgery is not planning any surgical intervention because of high risk. Patient continues to have distended abdomen patient remains on propofol at 45 mcg/kg/min he is also on TPN at 45 mL/h. Today I went ahead and placed a right radial arterial line, patient is getting blood draws and prefers to have it done from the arterial line instead of poking him on a daily basis. X-ray continues show similar findings compared to chest x-ray yesterday, continues to have pigtail catheter on the right side with ongoing air leak. Antibiotics arce remains on Zosyn and tobramycin sputum cultures have been growing Pseudomonas aeruginosa and now his abdominal findings are of concerns and the patient has acute pneumoperitoneum. Patient was evaluated today on 02/06/2024, remains in the ICU remains intubated remains ventilated. Patient is on assist-control rate of 20 tidal volume 620 FiO2 40% PEEP of 5 ABG showed a pO2 of 135 pCO2 38 pH of 7.49. Continues to have air leak noted in the chest tube. Chest x-ray is basically about the same continues to have scattered infiltrates left more so than right, pigtail catheter remains in place, no evidence of pneumothorax noted on the chest x-ray today. WBC is 12.5 hemoglobin is 7.7, basic metabolic profile is normal renal profile is normal bicarb is 28. Patient remains on Zosyn and on tobramycin. Hemoglobin today is 7.7. Patient remains on TPN is at bedside, updated the on his condition and explained to the that his condition is extremely poor, she was expecting to hear from all 3 surgeons who have seen this patient since admission Objective - Vital Signs Vital signs: Vital Signs Temp 98.6 F 02/06/24 00:00 Pulse 83 02/06/24 13:01 Resp 23 02/06/24 13:00 BP 139/87 02/06/24 13:00 Pulse Ox 98 02/06/24 13:00 FiO2 35 02/06/24 11:20 Intake & Output 02/05/24 02/06/24 02/06/24 18:59 06:59 18:59 Intake Total 338.913 1510.632 630 Output Total 1036 1140 1040 Balance -39.474 1962.632 -410 Weight 107.5 kg Intake: IV 220 1160 530 0.9 Normal Saline @ KVO 220 260 60 Piperacillin-Tazobactam 3 100 100 .375 gm In Sodium Chloride 0.9% 100 ml @ 25 mls/hr IVPB Q8HR [facility] Rx# :[id number] Potassium Chloride 20 meq 800 In Water For Injection 1 100ml.bag @ 50 mls/hr IVPB Q2H [facility] Rx#: [id number] TPN 270 Tobramycin Sulfate 160 mg 100 In Sodium Chloride 0.9% 100 ml @ 104 mls/hr IVPB Q24H [facility] Rx#:[id number] Intake, IV Titration 183.890 4509.632 100 Amount Mvi, Adult No.4 with Vit 1083 K 10 ml Trace (Conc-1Ml/ Dose) 1 ml Sodium Acetate 50 meq Magnesium Sulfate gm 1.5 gm Potassium Phosphate 3 mmol Sodium Chloride 4Meq/ml Vial 72 meq Calcium Gluconate 1 gm Potassium Chloride 40 meq In Amino Acids 5 %/ Dextrose 20 % 1,000 ml @ 45 mls/hr IV .Q24H [facility] Rx #:[id number] propofoL 1,000 mg In 281.526 274.632 100 Empty Bag 1 bag @ 15 MCG/ KG/MIN 9.63 mls/hr IV . [id number] [facility] Rx#:[id number] TPN/PPN 495 585 TPN 495 585 Output: Chest Tube Drainage 0 0 0 Chest Tube Right 0 0 0 Gastric Drainage 200 Drainage 160 40 0 Medial Abdomen 160 40 0 Urine 074 613 0003 Stool 1 Other: Voiding Method Indwelling Catheter Indwelling Catheter Indwelling Catheter ABP, PAP, CO, CI - Last Documented Arterial Blood Pressure 168/81 - Exam General: Revealed 73-year-old white male on mechanical ventilation, sedated, on propofol. Skin: Skin is warm and dry and no rashes or lesions are noted. Tracheostomy is intact. Eye: Pupils are equal, round and reactive to light, extra-ocular movements are intact; there is normal conjunctiva bilaterally. Ears, nose, mouth and throat: There are moist mucous membranes and no oral lesions. Neck: The neck is supple, there is no tenderness or JVD. Tracheostomy is intact Cardiovascular: There is a regular rate and rhythm. No murmur, rub or gallop is appreciated. Respiratory: Crackles at the bases, no rhonchi no wheezes, right-sided pigtail catheter is the same with ongoing air leak Gastrointestinal: Abdomen is distended, but no rebound no guarding, no bowel sounds, continues to have leakage around the J-tube and continues to have a wound VAC in mid abdomen. Musculoskeletal: No deformities and no limitation range of motion other the patient seems to be generally weak. Neurological: Sedated, on propofol, could not assess Extremities: 2+ bipedal edema - Labs CBC & Chem 7: 02/06/24 08:20 02/06/24 08:20 Labs: Abnormal Lab Results - Last 24 Hours (Table) 02/05/24 02/05/24 02/05/24 Range/Units 12:26 13:17 15:38 WBC 13.4 H (3.8-10.6) k/uL RBC 2.38 L (4.30-5.90) m/uL Hgb 7.1 L D (13.0-17.5) gm/dL Hct 22.4 L (39.0-53.0) % RDW 16.1 H (11.5-15.5) % Neutrophils # 10.0 H (1.3-7.7) k/uL ABG pH (7.35-7.45) ABG pO2 (83-108) mmHg ABG HCO3 (21-25) mmol/L ABG Total CO2 (19-24) mmol/L ABG O2 Saturation (94-97) % Hemoglobin (13.0-17.5) gm/dL Potassium 1.9 L* 3.2 L (3.5-5.1) mmol/L Chloride 124 H 110 H (98-107) mmol/L Carbon Dioxide 17 L (22-30) mmol/L BUN 30 H (9-20) mg/dL Creatinine 0.40 L (0.66-1.25) mg/dL Glucose 124 H (74-99) mg/dL POC Glucose (mg/dL) (70-110) mg/dL Calcium 4.5 L* 7.5 L (8.4-10.2) mg/dL Phosphorus 2.4 L (2.5-4.5) mg/dL Magnesium 1.3 L (1.6-2.3) mg/dL Alkaline Phosphatase (38-126) U/L Total Protein 3.6 L (6.3-8.2) g/dL Albumin 1.1 L (3.5-5.0) g/dL 02/05/24 02/06/24 02/06/24 Range/Units 17:56 05:47 05:48 WBC (3.8-10.6) k/uL RBC (4.30-5.90) m/uL Hgb (13.0-17.5) gm/dL Hct (39.0-53.0) % RDW (11.5-15.5) % Neutrophils # (1.3-7.7) k/uL ABG pH 7.49 H (7.35-7.45) ABG pO2 135 H (83-108) mmHg ABG HCO3 29 H (21-25) mmol/L ABG Total CO2 30 H (19-24) mmol/L ABG O2 Saturation 99.9 H (94-97) % Hemoglobin 7.2 L (13.0-17.5) gm/dL Potassium (3.5-5.1) mmol/L Chloride (98-107) mmol/L Carbon Dioxide (22-30) mmol/L BUN (9-20) mg/dL Creatinine (0.66-1.25) mg/dL Glucose (74-99) mg/dL POC Glucose (mg/dL) 117 H 121 H (70-110) mg/dL Calcium (8.4-10.2) mg/dL Phosphorus (2.5-4.5) mg/dL Magnesium (1.6-2.3) mg/dL Alkaline Phosphatase (38-126) U/L Total Protein (6.3-8.2) g/dL Albumin (3.5-5.0) g/dL 02/06/24 02/06/24 02/06/24 Range/Units 08:18 08:20 08:20 WBC 12.5 H (3.8-10.6) k/uL RBC 2.52 L (4.30-5.90) m/uL Hgb 7.7 L (13.0-17.5) gm/dL Hct 24.1 L (39.0-53.0) % RDW 15.9 H (11.5-15.5) % Neutrophils # 9.2 H (1.3-7.7) k/uL ABG pH (7.35-7.45) ABG pO2 (83-108) mmHg ABG HCO3 (21-25) mmol/L ABG Total CO2 (19-24) mmol/L ABG O2 Saturation (94-97) % Hemoglobin (13.0-17.5) gm/dL Potassium (3.5-5.1) mmol/L Chloride 109 H (98-107) mmol/L Carbon Dioxide (22-30) mmol/L BUN 26 H (9-20) mg/dL Creatinine (0.66-1.25) mg/dL Glucose 120 H (74-99) mg/dL POC Glucose (mg/dL) 128 H (70-110) mg/dL Calcium 7.7 L (8.4-10.2) mg/dL Phosphorus (2.5-4.5) mg/dL Magnesium (1.6-2.3) mg/dL Alkaline Phosphatase 270 H (38-126) U/L Total Protein 6.0 L (6.3-8.2) g/dL Albumin 2.2 L (3.5-5.0) g/dL 02/06/24 Range/Units 13:03 WBC (3.8-10.6) k/uL RBC (4.30-5.90) m/uL Hgb (13.0-17.5) gm/dL Hct (39.0-53.0) % RDW (11.5-15.5) % Neutrophils # (1.3-7.7) k/uL ABG pH (7.35-7.45) ABG pO2 (83-108) mmHg ABG HCO3 (21-25) mmol/L ABG Total CO2 (19-24) mmol/L ABG O2 Saturation (94-97) % Hemoglobin (13.0-17.5) gm/dL Potassium (3.5-5.1) mmol/L Chloride (98-107) mmol/L Carbon Dioxide (22-30) mmol/L BUN (9-20) mg/dL Creatinine (0.66-1.25) mg/dL Glucose (74-99) mg/dL POC Glucose (mg/dL) 124 H (70-110) mg/dL Calcium (8.4-10.2) mg/dL Phosphorus (2.5-4.5) mg/dL Magnesium (1.6-2.3) mg/dL Alkaline Phosphatase (38-126) U/L Total Protein (6.3-8.2) g/dL Albumin (3.5-5.0) g/dL Assessment and Plan Assessment: Impression: Acute hypoxic respiratory failure requiring intubation mechanical ventilation secondary to aspiration. Status post tracheostomy on 12/10/2023 The patient has bilateral pneumonia with a cavitary infiltrate in the right upper lobe, secondary to Pseudomonas aeruginosa, presently on Zosyn. Status post bronchoscopy on 01/28 and 11/3 0 and tracheostomy tube change on 01/04 Status post J-tube placement 11/16/2023, multiple complications since then related to the J-tube placement requiring multiple surgeries. 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 Critical illness polyneuropathy Metabolic encephalopathy Malfunctioning of the J-tube Bowel perforation, diagnosed on 02/03/2024, surgery on the case is not recommending surgical intervention because of high mortality/morbidity Recommendation: Continue ventilatory support, patient is not ready for any form of weaning at this point considering his surgical abdomen and abdominal sepsis picture Continue antibiotics including tobramycin and Zosyn Continue propofol for now Continue nutritional support/TPN continue chest tube/pigtail catheter to suction, continues to have air leak not ready to be removed Hold on physical therapy and Occupational Therapy for now, considering the new abdominal issues and the pneumoperitoneum Continue GI and DVT prophylaxis Remains critically ill, prognosis is extremely poor, updated again on his condition today Critical care time is over 30, Will continue to follow Time with Patient: Greater than 30
--- NOTE | 2024-02-06 16:16 | P.PN ---
Progress Note - Text Progress Note Date: 02/06/24 Chief Complaint: On the ventilator This is a 73-year-old patient, follows with Dr. Patricia Deal. Patient was seen this morning in the ICU. Patient's and daughter at the bedside. History obtained predominantly by the . Patient been having trouble with his stomach symptoms for close to 8 months. Patient underwent EGD by Dr. Sahara Cheng yesterday. Patient was found to have ulcerated around the antrum and obstruction to the pylorus. A lot of retained food was found. Patient aspirated. Had to be intubated and brought to the ICU. On a Levophed drip. FiO2 50 and a PEEP of 6. Patient had been losing weight lost about 25 pounds. Previously has a history of mitral valve prolapse. November 13: ICU. Patient remains on Precedex drip and propofol drip. Did not do well attempted extubation yesterday. Patient been off Levophed. NG tube to suction. Spoke to patient's and son at the bedside. Biopsy results awaited. Hemoglobin dropped to 6.9 this morning. Get a unit of blood. November 14: ICU. Up in a chair. Extubated yesterday. NG tube to suction. at the bedside. 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 Oncology was consulted. They have ordered a port. Results discussed with Dr. Sahara Cheng. General surgery was consulted for J-tube placement. Discussed with at the bedside. Patient getting IV fluids, IV Zosyn,. Patient has been on IV amiodarone for A-fib-back in sinus rhythm. Multiple PACs. Did receive unit of blood yesterday. Also IV ferric gluconate. November 15: ICU. Patient earlier today underwent jejunostomy tube placement and a port placement. Patient awake. Answering questions. NG tube to suction present. Updated patient's . Patient remains on IV amiodarone and IV Zosyn. November 16: ICU. Up in the chair. NG tube present but not to suction. Trickle feeding through the jejunostomy tube should be started today. Dietitian has been on board. IV Zosyn to continue. Patient's and his sister at the bedside. Discussed. Also spoke with Dr. Serna. Given patient has no other predisposing cardiac factors for the A-fib except acute illness. His LV function is normal. Left atrium is normal. He has already been loaded with IV amiodarone. Will switch him to oral Lopressor 12.5 twice daily. Hence will DC amiodarone. Patient yesterday had wheezing was put on bronchodilators steroids per pulmonary. November 17: Propped up in bed. NG tube was discontinued. Sinus rhythm. Remains NPO. Getting G-tube feeding at 40 cc an hour. Dietitian following. Get arrangements done for DC home tomorrow including tube feeding. Increase activity discussed with patient and elder daughter at the bedside. Still requiring oxygen. Incentive spirometry. November 18: Patient up in recliner. Earlier today spoke to manager social work David. Informed patient is rather weak and will be going to the [facility]. Looking at authorization. Denae came to the room and spoke to patient his and his daughter. They are very keen to take the patient home as 3 daughters all nurses and they will take care of him at home. Patient earlier today to abdominal cramping and some loose stools.'s tube feeding was held. Told the nurse to start back at the rate of 40 cc an hour. He was before the getting it at 55 cc an hour. Incentive spirometry was again emphasized. Patient remains on 4 L of oxygen. November 19: I saw the patient this morning. Hence I am in the evening. Morning was sitting with his sons. Has some edema. Lungs had crackles I gave him 40 mg of Lasix. He did make good urine. Tube feeding was held from the p revious evening of because of abdominal cramping. Acute abdominal series showed nonspecific bowel gas pattern and SBO to be ruled out. Family and patient was updated. Told him discharge will depend on day by day. Later this afternoon CT scanAnd abdomen pelvis done. Showed small bowel to be 3 point centimeter dilated. Some anasarca. Gastric findings. Gallstones. Later spoke to Dr. Irby from general surgery. They will further review and decide about further plan of action. Will give further dose of IV Lasix because of fluid overload from likely hypoalbuminemia and IV fluids previously received. Patient may take his pills by mouth. Total time spent today about 1 hour with over 40 minutes of discussion. Patient did state his breathing is better after Lasix this morning. November 20: Saw the patient this morning. was present. Patient received 2 more doses of Lasix. Diuresed well. Breathing much better. Lungs are sounding better. Discussed with Dr. Zepeda other surgeon. He is taking 3 cc out of the balloon and the gastrostomy tube. Started trickle feeding at 5 cc an hour. Will see how this does. Later in the day ran into the and the daughter again. Did update them on the same. Dilaudid was discontinued yesterday but morphine was ordered by surgery for patient having pain. Concerns about GI issues with that we will DC the morphine. As family does not want the same. November 21: Patient reclining bed. Tired. Several family members at the bedside. Including his and eldest daughter. Patient started on trickle feed yesterday at 5 cc an hour. This morning he has been on 10 cc an hour. Still having some loose stools. C. difficile was ordered. Patient on 2 L of nasal cannula. Has diuresed well. Will give an additional dose of Lasix today. If C. difficile is negative and the diarrhea is from the tube feedings we may have to use a fecal management system to keep him comfortable. Otherwise patient remains NPO. Dietitian is following the patient. Care was discussed length with patient the and daughter at the bedside. Questions answered. Liquid Tylenol has been added for abdominal pain. Avoid narcotics. Elevated white count likely from Solu-Medrol 11/23/2023--patient was feeling better today. Multiple family member at bedside. No issues overnight. Normal saline at 10 cc an hour, tube feeding at 20 cc an hour, remains on Zosyn, on 3 L oxygen. Afebrile. Heart rate 62, respiratory rate 16, blood pressure 114/67, saturating 91% on 3 L. WBCs 14.5, 9.7 hemoglobin. Platelet 242. BMP is unremarkable. Pulmonary and general surgery following. General surgery recommended to continue tube feeds at 20 cc/h. 11/24/2023--patient reported significant abdominal discomfort, also noted to have leak around G-tube. General surgery is following, evaluated the patient at bedside, adjusted tube feeds. Also reported having diarrhea, on 2 L oxygen, went up to 5 L. Blood pressure was low, 500 mL fluid bolus with close monitoring of respiratory status ordered. Currently on DuoNebs, Solu-Medrol, will continue Zosyn. Chest x-ray showed a left lower lobe infiltrate. Abdominal x-ray showed multiple air-fluid levels. CT abdomen showed multiple dilated small bowel loops, consistent with obstruction, pneumoperitoneum, cholelithiasis and ascites. WBCs 14.1, platelet 255, hemoglobin 8.9. NG tube in place. Family at bedside. patient transferred to SICU for close monitoring. 11/25/23--patient is currently in the ICU, required Levophed overnight due to low blood pressure, low urine output with creatinine trending up. Nephrology following. Bottle Machine Operator also following. Patient remains n.p.o., NG tube in place, following NG tube insertion patient had total of 2 L output, J-tube was draining approximately 200 cc over last 8 hours, continues to have abdominal pain and abdominal tenderness. Patient on IV fluids. Currently on 4 L oxygen. WBCs 8.2, hemoglobin 12.3, platelet 188. Chest x-ray earlier today showed right sided port and a stable left lung airspace disease, NG tube in place. Patient currently on Zosyn, on IV Dilaudid for pain control, on IV Solu-Medrol. General surgery planning for OR today, started on TPN. 11/26/23--patient was seen and examined today. Patient is currently sedated, intubated on mechanical ventilation. Family at bedside. Patient underwent ex lap, abdominal washout, small bowel resection with new feeding jejunostomy tube placement yesterday, small bowel was noted to be perforated with significant contamination of abdominal cavity. Patient is currently on vancomycin and Zosyn. Creatinine went up to 2.85, nephrology following, recommended to continue IV fluids, avoid nephrotoxin Preserved EF on echocardiogram.. Patient currently on Levophed, vasopressin in the ICU for close monitoring. Patient is afebrile, heart rate 122, blood pressure 129/76, currently on mechanical ventilation, sedated. November 26: ICU. Intubated. FiO2 60 and a PEEP of 5. Drips include IV amiodarone. Heart rate was up early did get fired microgram of IV digoxin and 2.5 mg of IV Lopressor. Did drop her blood pressure bit. Urine output was low. Received 80 mg of IV Lasix. Ahmet to 150 cc. Other drips include IV propofol, vasopressin, Levophed. TPN was started yesterday. Antibiotics include IV Zosyn and vancomycin. Patient has a J-tube to drainage to gravity. Spoke to patient's younger daughter and at the bedside. Prognosis guarded. Continue current treatment plan. Chest x-ray shows right lower lobe consolidation. Small pleural effusion. November 27: ICU. Intubated. FiO2 55 and a PEEP of 5. Antibiotics include IV vancomycin. Drips include Levophed at a small dose, IV vasopressin, propofol, amiodarone. Patient converted to sinus rhythm this morning. Getting TPN and normal saline at 75 cc an hour. Urine output about 25 cc an hour. RAYA drain put out about 260 cc last 12 hours that is last cage shift manager. NG tube with bilious output. And also GI J-tube output to gravity. Spoke to patient's and daughter at the bedside. They understand patient still not out of the kee. Platelets have dropped-therefore probably Zosyn stopped. November 28: ICU. Intubated. FiO2 55 and a PEEP of 5. Patient is in sinus rhythm. Seen this morning. Due for dialysis catheter this afternoon. Urine output about 15 to 20 cc an hour. Patient is on IV Lasix 80 mg every 12. Saline is KVO. Drips include IV propofol vasopressin. Patient having significant output through the RAYA drain and the jejunostomy tube to drainage. Creatinine had been getting worse. Patient's at the bedside. Understands patient's remains critically ill. Hemoglobin is down to 7. Given that patient's pain hypotensive, and on vasopressin we will give a unit of blood with dialysis. Getting TPN antibiotic changed to IV meropenem November 29: ICU. Intubated. FiO2 55 and a PEEP of 5. Remains in sinus rhythm. Getting TPN. Dialyzed yesterday and this morning. About 1000 cc removed. Urine output about 50 cc an hour. Patient is on IV propofol. Off vasopressin. Still having significant output through the RAYA drain and jejunostomy tube. Patient received a second unit of blood yesterday. Patient's and daughter at the bedside. I did discuss guarded prognosis. Did asked them to revisit CODE STATUS.. Getting IV meropenem. November 30: ICU. Intubated. Did get a sedation holiday t today. Back on propofol. Getting TPN. Still getting IV Lasix. Fair urine output. Jejunostomy tube in last 8 hours was about 30 cc output. RAYA drain in the 8 hours had about 180 cc output. Telemetry shows sinus rhythm. NG tube has low intermittent suction with negative output. On the vent with FiO2 40 and a PEEP of 5. No hemodialysis today. Discussed with the and eldest daughter at the bedside. IV meropenem-patient's sputum had grown Citrobacter freundii and Pseudomonas aeruginosa. December 01: ICU. Intubated. Jejunostomy tube to gravity. Only 10 cc output in last 24 hours. RAYA drain. About 190 cc last 6 hours. Nasogastric tube to low intermittent suction. Minimal output. Patient is on a small dose of propofol 5 mics. Telemetry shows sinus rhythm. Patient started on small dose of Cleviprex this morning. Blood pressure. Getting TPN. FiO2 35 and PEEP of 5. Discussed with the at the bedside. Hemodialysis today December 02: ICU. Patient remains intubated. FiO2 35 PEEP of 5. Patient is on IV propofol. IV Cleviprex was discontinued yesterday. Also remains on TPN. Telemetry shows sinus rhythm. NG tube is good no output. Still significant output through the RAYA drain. Jejunostomy tube has minimal output. Patient had hemodialysis today 2 L of fluid was removed. Oral half liters yesterday. Patient getting a sedation holiday. General Surgery started the patient on trickle feeding at 10 cc an hour. I did speak to patient's at the bedside. Prognosis remains guarded but there is some improvement. December 03: ICU. Intubated. FiO2 35 PEEP of 5. Drips include IV propofol and Precedex. Getting TPN. Telemetry shows sinus rhythm. Remains on IV Lasix 80 mg twice a day. IV meropenem. Because patient gets easily agitated when transitioning off propofol he has been switched over to Precedex. For hemodialysis today. December 04: ICU. Intubated. FiO2 35 and a PEEP of 5. Patient been taken off propofol is on Precedex. Telemetry sinus rhythm. J-tube with minimal output. RAYA drain with decreased output. NG tube to suction minimal output. Family wanted to hold off trickle feeding until cleared by oncology. Which he did today. Trickle feeding will be started today. Spoke to patient's and one of the daughters at the bedside. Dr. Russ is spoken to the earlier this point they want to do further tracheostomy tube. October 4: ICU. Intubated. FiO2 35 PEEP of 5. Patient remains on Precedex and PPN. Patient's dialysis catheter was not functioning is getting another [address] Bobby this afternoon. Remains on IV meropenem. Has a RAYA drain in the jejunostomy tube to gravity. NG tube to low intermittent suction. No family at the bedside. December 06: ICU. Intubated. FiO2 35 PEEP of 5. RAYA drain putting out about approximately 120 cc per shift. Patient on IV Precedex. FiO2 35 PEEP of 5. Telemetry-sinus rhythm. Patient occasionally been put on small dose of Levophed specially for hemodialysis getting it today. Also started on midodrine for low blood pressure. Tolerating tube feeding at 10 cc an hour. Also had a bowel movement. Mentation has not improved. Even with sedation holiday. Neurology consulted. CT brain shows no acute process. December 07: ICU. Intubated. FiO2 35 PEEP of 5. Telemetry-sinus rhythm. NG tube to suction low intermittent minimal output. Getting TPN. Tube feeding at 20 cc an hour. RAYA drain averaging over 100 cc per shift. Remains on Precedex. EEG was done today. Discussed with at the bedside. Family is currently not inclined for tracheostomy tube today. Day 13 of being intubated December 08: ICU. Intubated. FiO2 35 PEEP of 5. Patient is put on back on propofol per coconut candy maker Dr. JIMENEZ. EEG did show some potential for spikes was put on Keppra by neurology. Telemetry shows sinus rhythm. NG tube to suction with no output. Tube feeding was put on hold because of questionable discharge on the site. Being restarted today. RAYA drain is 150 cc last 12-hour shift. Patient does open eyes. Family has decided to proceed with tracheostomy and surgery has been consulted for the same. Spoke to the at the bedside. For hemodialysis today. December 09: ICU. Intubated FiO2 35 PEEP of 5. Patient seen this morning. Pending tracheostomy placement this afternoon. Remains NPO. G-tube feeding was held overnight. RAYA drain putting out about 100 cc per shift. Received a unit of blood for hemoglobin of 6.6. On 25 mics of propofol. Getting TPN and meropenem. Spoke to the at the bedside. Patient became hypotensive with dialysis yesterday. Levophed had to be given. Only 800 cc were removed yesterday. No hemodialysis today. December 10: ICU . FiO2 35, PEEP 5. Tracheostomy was done yesterday by Dr. Ewing. G-tube feeding was started today at 10 cc an hour. Dietitian following. RAYA drain 12-hour shift overnight put out about 30 cc. Patient hemodialysis today about 1 L removed. Patient has a sacral stage II decub with a dressing. On propofol 20 mics. Spoke to at the bedside. TPN. Meropenem was discontinued yesterday. December 11: ICU. FiO2 35 PEEP of 5. Tracheostomy. NG tube was discontinued. No hemodialysis today. Telemetry shows sinus rhythm. J-tube feeding at 40 cc an hour. TPN was discontinued. Patient has been off propofol also. PICC line in place. Patient had a EEG done today. Spoke to patient's elder daughter at the bedside. May open eyes occasionally. Not really following commands December 12: 73-year-old white male with history of chronic abdominal pain for the last 8 months has been treated with Protonix 40 mg daily for the last 3 months with no improvement. Patient had a 22 pound weight loss in the last [address] of the abdomen and pelvis 3 weeks ago showed thickening of the antral wall with pathological adenopathy posterior to the stomach suspicious of neoplasm. Today the patient underwent elective upper endoscopy to evaluate further, patient received IV sedation by anesthesia endoscope was inserted into the mouth, esophagus was intubated without any difficulty there was evidence of large amount of liquid and solid food noted in the stomach suggestive of gastric outlet obstruction. Scope could not be advanced through the pylorus, however in the prepyloric area there was a large superficial ulceration identified with multiple biopsies were done from this area. The body cardia and fundus could not adequately visualize because of large amount of retained food in the s tomach. Scope was withdrawn back to the stomach and upon careful examination the mucosa of the antrum body and cardia as well as the fundus appeared normal. Procedure was being performed and biopsies were done patient threw up and subsequently became hypoxic there was clearly evidence of witnessed aspiration anesthesia intubated the patient, procedure was terminated, and the patient was transferred to the ICU, this consult was initiated. Patient is now on assist- control rate of 20 tidal volume 500 FiO2 70% PEEP of 10 ABG is pending, earlier ABG showed profound hypoxia patient is on propofol at 50 mcg/kg/min, next ABG is pending. Chest x-ray showed chronic changes without evidence of acute pulmonary disease. 12/14/2023 Patient remains in the ICU, generally weak Patient s/p tracheostomy G-tube in place Patient still has fever and mild tachycardia but tachycardia is improving, leukocytosis improving as well. Hemoglobin 8.1. Creatinine 3.0 and nephrology team on the case. He has mild transaminitis. He was getting Zosyn which is held now, nowCalcitonin is pending 12/14 Patient shon in the ICU, he is still encephalopathic and does not follow command. Neurology service following closely. He is status post tracheostomy. Also J-tube His abdomen looks soft and on exam he has mild coarse secretions. Has a Abarca catheter with clear urine His pro- Calcitonin is still high but trending down 3.0 down to 1.9 No fever this morning WBC slightly less at 16.3 Patient currently off antibiotic He is getting steroids IV Solu-Medrol which might contribute to his leukocytosis. Also he is on IV Keppra by neurologist 12/14 Patient remains confused in the ICU calm, he had a good night per family member and staff. Tracheostomy in place Patient has occasional coughing spells, patient also developed some partial wound dehiscence in his abdomen, surgery team are aware and are going to evaluate the patient Patient also has positive blood culture from 12/13: Gram-positive cocci in clusters. Patient received one-time dose of IV vancomycin. Patient also had fever 2 days ago, leukocytosis and total elevated pro- Calcitonin. Therefore we are going to consult infectious disease team. As his antibiotic Zosyn was stopped few days ago. Currently patient KVO He has good urine output December 16: ICU. Trach. Congested. Requiring suctioning. No hemodialysis today. Getting G-tube feeding at 50 cc an hour. FiO2 30 and a PEEP of 5. On IV Precedex. Eyes open. Does follow commands. Weakness in the limbs. Spoke to at the bedside. Sputum positive for Klebsiella oxytoca and Pseudomonas aeruginosa. December 17: ICU. On trach. Currently cough with increased secretions requiring suctioning. Adding scopolamine patch. Very much clear secretion. CT scan is showing right upper lobe lung abscess. G-tube feeding at 50 cc an hour. Hemodialysis today. RAYA drain putting out about 140 cc a shift. Serous. Has been midline incision wound dehiscence. Wound VAC was placed on it. Stage II ulcer. Patient is on Precedex drip 0.15 mics. Urine output is good about 6200 cc an hour. Spoke to the at the bedside. Patient currently not stable for transfer to LTAC. No limb movements. PT OT on the case. otherwise awake does follow simple commands by face December 18: ICU. Patient seen this afternoon. Because of pain getting IV Dilaudid. No nasal cannula on room air. Does move about his head. Telemetry shows sinus rhythm. FiO2 30 and a PEEP of 5. Patient started on scopolamine patch yesterday has decreased secretions today. Good urine output. Tube feeding at 60 cc an hour. Wound VAC on incisional would be high since in place. RAYA drain continues to make output. No hemodialysis today December 19: ICU. Patient was seen earlier today. FiO2 30 and a PEEP of 5. Sinus rhythm. Awake. Does follow with eyes. Tube feeding got obstructed tube feedings held for now. Increasing oozing from the incision drainage site. at the bedside. Wound VAC remains in place. Good urine output. Dialysis held today. December 20: ICU. Per nephrology no dialysis today. 1 L fluid bolus given. J- tube was replaced over the wire by Dr. Ewing from surgery. On Precedex 0.6 mcg. FiO2 30 and a PEEP of 5 on the vent. RAYA drain putting out of around 100 cc per shift. at the bedside. Drainage through the abdominal incision wound. CT scan abdomen showed tube placement in the small bowel. Stable large right lower quadrant mass with a fluid level. December 21: ICU. No dialysis today. Patient started on trickle feeding through the J-tube yesterday. He started leaking around the J-tube site. Tube feeding was held. Dressings were placed. Wound VAC remains on the incision. Still having output through the RAYA drain. Patient remains on Precedex 0.4 mcg. FiO2 30 and a PEEP of 5. Sinus rhythm. at the bedside. December 22: ICU. Patient was seen this morning today by me. No dialysis today. Patient's and daughter at the bedside. FiO2 30 and a PEEP of 5. Sinus rhythm. Still having significant secretions through the tracheostomy tube. On Precedex 0.4 mcg. Getting D5W IV fluids. Tube feeding remains to be on hold since yesterday. Still output of RAYA drain. Awaiting input from surgery. Discussed with the and daughter. December 23: ICU. Saw the patient this afternoon. Because of good output of urine dialysis has been discontinued. Telemetry shows sinus rhythm. FiO2 30 and a PEEP of 5. RAYA output has been around 8200 cc an hour. Good urine output. Patient does have very slight movement of the limbs. Wound VAC is putting out about 20 cc per shift. Yesterday when trickle feeding was started patient's J- tube drainage also started leaking around the insertion site. Tube feeding was held. Patient remains on IV Zosyn and Precedex at 0.3 mcg. I had a very lengthy discussion with patient's daughter and at the bedside overall guarded prognosis. Later surgery spoke to the family, and then the nurse called me that family was wanting transferred to [facility]. I spoke to Dr. Irby. They felt they could not offer anything more at this point. I did call the [facility] transfer steam powerplant supervisor. Gave them the reason for transfer. Later in the ICU nurse informed me through [employer] that [facility] had declined the transfer. Total time spent today about 50 minutes with over 30 minutes of discussion. December 24: ICU. Patient is doing not too well. Sinus rhythm. Drips include norepinephrine and IV propofol. Surgery did put 2 stitches around the J-tube insertion site. Started on TPN today. FiO2 30 PEEP of 5. Patient became hypothermic put on a Manjit hugger. Also hypoglycemic. Decreased urine output. IV fluids increased. Patient's son was at the bedside. I did speak to patient's eldest daughter outside in the waiting room. Did tell the patient doing very poorly. I did try to call the on the phone number she has gone home. Started an IV antifungal today. December 26, 2023 73-year-old white male with history of chronic abdominal pain for the last 8 months has been treated with Protonix 40 mg daily for the last 3 months with no improvement. Patient had a 22 pound weight loss in the last [address] of the abdomen and pelvis 3 weeks ago showed thickening of the antral wall with pathological adenopathy posterior to the stomach suspicious of neoplasm. Today the patient underwent elective upper endoscopy to evaluate further, patient received IV sedation by anesthesia endoscope was inserted into the mouth, esophagus was intubated without any difficulty there was evidence of large amount of liquid and solid food noted in the stomach suggestive of gastric outlet obstruction. Scope could not be advanced through the pylorus, however in the prepyloric area there was a large superficial ulceration identified with multiple biopsies were done from this area. The body cardia and fundus could not adequately visualize because of large amount of retained food in the stomach. Scope was withdrawn back to the stomach and upon careful examination the mucosa of the antrum body and cardia as well as the fundus appeared normal. Procedure was being performed and biopsies were done patient threw up and subsequently became hypoxic there was clearly evidence of witnessed aspiration anesthesia intubated the patient, procedure was terminated, and the patient was transferred to the ICU, this consult was initiated. Patient is now on assist- control rate of 20 tidal volume 500 FiO2 70% PEEP of 10 ABG is pending, earlier ABG showed profound hypoxia patient is on propofol at 50 mcg/kg/min, next ABG is pending. Chest x-ray showed chronic changes without evidence of acute pulmonary disease. 12/27/2023 Patient is seen and evaluated with family at bedside; remains in the ICU intubated and mechanically ventilated. - ABG showed a pO2 of 99 pCO2 31 pH of 7.44. -- Remains on Eraxis daptomycin and Zosyn patient is intermittently requiring Dilaudid, Ativan does not seem to help his agitation and restlessness. -- Continues to have leakage around the jejunostomy tube, and patient is undergoing the J-tube exchange today. Family is at bedside, seems to be quite anxious about his overall condition, and I explained to the that we are doing the best we can considering his critical illness situation and critical illness polyneuropathy. Patient is profoundly weak, and weaning the patient from mechanical ventilation is almost impossible. At least not at this point yet WBC count is 10.9 hemoglobin is 8.1 basic metabolic profile is normal BUN is 46 creatinine 1.90 patient has been off hemodialysis since the . Chest x- ray continues to show stable findings with right upper lobe opacity and right lower lobe opacity and possibly a small right-sided pleural effusion ----Continue ventilatory support, now on IMV mode rate of 16 with pressure support of 14 Continue Precedex and use Dilaudid 0.5 mg every 2-3 hours as needed. Nutritional support patient is now on TPN, Possible J-tube changed today for J- tube malfunction Continue antibiotics including daptomycin and Zosyn, Eraxis was added by infectious disease 12/28/2023 the patient is seen and evaluated in room at bedside; continues to be afebrile, the patient is on the ventilator through the trach FiO2 is currently stable at 30% no significant pleural effusion clinically patient on requiring any pressor support still having drainage around his jejunostomy tube patient dialysis catheter has been discontinued. Patient white count normalized to 7.6, creatinine is 1.51 patient with pneumonia with a sputum showing Citrobacter and Pseudomonas aeruginosa, the patient sputum repeat is still growing Citrobacter and Pseudomonas sensitive to the Pseudomonas is pending continue with Zosyn -patient did have a positive blood culture with staph epi that was oxacillin resistant as the patient did have a PICC line and the dialysis catheter he is on daptomycin repeat blood culture currently growing oxacillin sensitive staph epi, the patient dialysis catheter has been discontinued Has been sent for the culture -patient also have significant excoriation around his jejunostomy tube site which is still leaking Eraxis was added which will be continued as the patient fever pattern has improved and the patient white count has normalized once again discussed with the nursing staff to apply Triad cream which was discussed yesterday but not applied and monitor clinical course closely 12/29/2023 Patient is seen and evaluated with family members at bedside; remains intubated and mechanically ventilated -- ABG showed a pO2 of 105 pCO2 31 pH of 7.45. Remains on Precedex; multiple antibiotics and antifungal including Eraxis daptomycin and Zosyn. -- chest x-ray is showing improvement in his right upper lobe airspace disease/pulmonary abscess. Right lower lobe seems about the same with chronic opacity and possibly some small right-sided pleural effusion. --Family is at bedside, patient is arousable but does not follow any instructions. Gets extremely restless and agitated easily hence patient is receiving Dilaudid which seems to be working much better for this patient than benzodiazepines --possibly transfer the patient to a select care specialty. 12/30/2023 Evaluated in follow-up in the intensive care unit. He remains on the mechanical ventilator. Status post tracheostomy. There has been a decrease in the amount of leakage around the J-tube site he continues on a gravity flow. TPN is infusing tube feedings remain on hold at this time. No bowel movement reported for the last 5 days. X-ray today reveals extensive pleural parenchymal opacities throughout the right with at least a moderate pleural effusion. Mild patchy densities left mid and lower lung are also similar. Blood work reveals a white blood cell count 11.5, hemoglobin 8.1, platelet count of 78, sodium 142, potassium 4.2, BUN of 42, creatinine of 1.22, Phos of 2.3, magnesium 1.9. Patient continues on IV anidulafungin IV Zerbaxa IV daptomycin. Patient is currently sedated with propofol and also Precedex which is currently on hold at this time. December 31, 2023: ICU. Patient continues to do poorly. On propofol 35 mics. Also getting IV Dilaudid and IV Ativan.. Telemetry shows sinus rhythm. J-tube feeding has been discontinued. Significant output through the Abarca bag and around the G-tube site. Patient also putting out through the RAYA drain on the right side. Getting TPN and lipids. Patient is antimicrobial include iv aniedulefungin, IV ceftolozane/tazobactam, IV daptomycin Advance care planning [October 31, 2023] I met with patient's at the bedside. Went through in detail with patient is overall very poor clinical status. Chances of any meaningful recovery next to minimal. I also did mention that patient in my opinion was not stable to go to chronic ventilator setting. I suggested comfort care/hospice. I did not feel and why all honesty that patient is benefiting any further from the treatment we are giving him in fact causing probably more suffering. I also spoke to patient's daughter outside in the waiting room. Total time spent about 50 minutes with over 30 minutes of discussion. Later I called Dr. Luther JIMENEZ the coconut candy maker after he received a text that family was expressing that some physician expressed he was doing better and giving hope. I spoke to nurse Lemos in the evening and she and Dr. JIMENEZ did go and talk to patient's family at the bedside later. January 01, 2024: ICU. FiO2 30 and a PEEP of 5. Continues to have increased drainage at the G-tube site. Wound VAC in place over the incision. RAYA drain continues to put out excretions. Good urine output. Drips include IV propofol at 20 mics, also getting IV Ativan and Dilaudid. Patient also keeping getting TPN lipids. Spoke to the patient's at the bedside. No further questions. I did speak to Dr. Irby from general surgery. Hence it is both our impression again that changing the tube will not make any difference to the bigger picture. And probably futile. Dr. Irby will be speaking to the family today. David from manager social work did ask about of family meeting. I did reiterate that I spoken at length to the a few times and also the daughter. Dr. Jimenez also spoke to the and Dr. Irby will be speaking with the today. Prognosis remains to be very poor. I did tell the in my opinion probably the patient is not r a candidate for long-term facility. Will coconut candy maker Dr. Jimenez determine if the patient is a candidate for long-term chronic ventilator facility. January 02, 2024: ICU. FiO2 30 PEEP of 5. Telemetry sinus rhythm. Drips include propofol at 20 mics. Patient getting TPN lipids. Receiving 1 unit of packed red blood cell. Patient was having a breakdown around the tracheostomy stoma site. With a cuff leak. G-tube site is continues to have increasing output. Wound VAC in place. RAYA drains also having increasing output. Patient sister and daughter from [place] from out of town. Earlier they spoke at length with Dr. alford from general surgery. Prognosis remains poor. January 03, 2024: ICU. FiO2 30 PEEP of 5. On propofol. 50 mics. Getting TPN lipids. Sinus rhythm. Wound VAC in place. Drainage around the j-tube site. RAYA drain continues to drain. Patient somewhat sedated. at the bedside. Later manager social work David inform me that the surgical team Dr. Irby has suggested possible you have [facility], to which family is trying to obtain transferred to. Per Dr. Jimenez note patient has been decline by long-term care twice. Prognosis remains poor. at the bedside. Had no questions. Brother Nathan is present. January 04, 2024: ICU. FiO2 30 PEEP of 5. Propofol was held this morning. Getting TPN lipids. Sinus rhythm. Wound VAC remains in place. Continues to have drainage around the J-tube. RAYA drain continues to have output. at the bedside. She had no questions. Antibiotics in place. January 05, 2024: ICU. FiO2 30 PEEP of 5. Audibly sounding congested. Getting TPN lipids. Sinus rhythm. Wound VAC in place. Drainage around J-tube site. RAYA output continues. No family at bedside. Getting antibiotics. Lethargic January 06, 2024: ICU. FiO2 30 PEEP of 5. Patient is been off propofol since yesterday. Does move his head about. Try to open his eyes sometimes. Sinus rhythm. Blood pressure is running high yesterday. Started on Cleviprex. Hydralazine is being added. Continue to get TPN lipids. J-tube site remains excoriated. Wound VAC in place. RAYA output about 40 to 50 cc is a 12-hour shift. Patient elder daughter at the bedside. Eraxis was discontinued on January 02. Daptomycin is being discontinued by ID. Continue ceftolo'szone. CT abdomen pelvis done today: 3.1 cm organized fluid collection within the rectovesicular space concerning for abscess. No change in right upper lung 4.9 cm fluid collection with a fluid level. For possible pulmonary abscess. Moderate size right lung base multiloculated hydropneumothorax possibly abscess. Additional areas of air bronchograms. January 07, 2024: ICU. FiO2 30 PEEP of 5. Patient was taken down for pigtail drainage of the right lung abscess. About 200 cc of pus was obtained. Nurse informed me when they told him about for the procedure a lot of pus gushed out from the tracheostomy site. Dr. Love at the bedside did a bronchoscopy. Some pus was aspirated. No obvious fistula was noted. Patient is being back on Cleviprex drip. TPN lipids. January 08, 2024: ICU. Patient was having severe bouts of coughing. Unable to maintain ventilation. Patient was put on Nimbex drip and propofol drip. TPN lipids continue. Has a right chest wall pigtail catheter 90 cc output in 12- hour shift. Drainage from around the J-tube site. RAYA drain continues Ahmet to have an output. Abdominal wound is high since with the wound VAC in place. Patient sedated. January 09, 2024: ICU. Patient is off propofol and Cleviprex. Does open eyes. RAYA drain. About 40 cc last 24 hours. J-tube site continues to have increased output. Requiring dressing change every so often. Wound VAC in place. Patient getting Dilaudid and Ativan. Telemetry shows sinus rhythm. 40 cc out of the pigtail drainage. Patient started on ciprofloxacin and tobramycin. Remains on TPN and lipids. Patient's eldest daughter and at the bedside. No new questions. January 10, 2024: ICU. Overnight patient had become asynchronous. Had to be put on Precedex drip. Hemoglobin dropped down to 6.6. Monitor blood ordered. RAYA output about 100 cc last 24 hours. Wound VAC remains in place. TPN lipid continues. Patient also has a leak in the right pigtail catheter. Sinus rhythm. Continues to have increased secretion at the G-tube site. Ventilator FiO2 30 and a PEEP of 5. at the bedside. Had no further questions. January 11, 2024: ICU. Patient remains on IV Precedex. TPN.'s RAYA output over 30 cc last 24 hours. Wound VAC remains in place. Sinus rhythm. FiO2 30 PEEP of 5. Pigtail with very little output. Spoke to Dr. Love who only spoke to the patient's at length. Gnosis poor. When I walked in patient's 2 daughters and the present. is very tearful crying hugging the patient. The daughter had no further questions January 12, 2024 Ahmet: ICU. Continues on IV Precedex. Getting TPN lipids. Wound VAC in place. Sensitive. FiO2 30 and a PEEP of 5. Patient's at the bedside. Had no questions. January 13, 2024: ICU. FiO2 30 PEEP of 5. Remains on Precedex 0.8 mg. Eyes open. Sometimes does track with head. Not moving limbs. Some decrease in output from the G-tube site. Wound VAC putting out about 100 cc every 12 hours. RAYA drain about 100 cc every [address] Russ met with the family earlier today. Patient's been made DNR. Telemetry sinus rhythm. Patient's and daughter at bedside. They have no questions January 14, 2024: ICU. FiO2 30. PEEP of 5. Patient is has eyes open and tracking. Urine output about 100 cc an hour. NG site output looks like gastric contents. RAYA site about 50 cc in the last 12 hours. Telemetry sinus rhythm. and daughter have asked for hospice consultation for informational visit. They want to use [facility]. I sat with them and the nurse and a full expression of the hospice involved involved. Several questions answered. Daughter does express that she would like to take the patient home. The other sibling will be coming on from [place] on Saturday. They want to hold on at least until then. January 15, 2024: ICU. FiO2 30 and a PEEP of 5. Getting CPAP today. Asynchronous better. J-tube site continues to have increase secretions. Sinus rhythm. Awake. Does move his head possibly to command. Remains on Precedex. Getting Dilaudid. Fair urine output. Has a air leak in the pigtail. Minimal output through the chest tube. RAYA drain continues to have an output. at the bedside. January 16, 2024: ICU. On the ventilator FiO2 30 and a PEEP of 5. Pressure support mode. Wound VAC remains in place. J-tube site continues to have output. RAYA drain putting out output. Remains on pressors Precedex and getting Dilaudid. Antibiotics per ID. Patient being planned to go home tomorrow with home hospice. at the bedside. Had no further questions. Being followed by manager social work David and home hospice team from [facility] The plan for tomorrow currently is as follows: -Hospice arranging for transport with portable ventilator, to home with family -Antibiotics as discussed with ID will be discontinued -Wound VAC to be removed prior to discharge per surgery -RAYA drain to remain in place with dressing changes at the J-tube site. Dressing changes at the incision site per surgery. -TPN lipids will be discontinued prior to discharge -Patient to be taken off Precedex by r coconut candy maker January 21, 2024: ICU. Ventilator FiO2 30 and a PEEP of 5. Precedex drip. Sinus rhythm. Does wake up and follow commands. Weak in the limbs. Very little output through the RAYA drain. Wound VAC in place. Requiring Dilaudid for pain control close to every 2 hours. Over the weekend patient and family dec ided not for hospice. Patient is now full code instructions. Looking at long- term placement. Patient on tobramycin and ciprofloxacin and Diflucan per ID. Patient and daughter at the bedside.. Physical therapy in the room for passive movements. Family being educated. Since yesterday patient has been on pressure support./CPAP. Getting TPN lipids. January 22, 2024: ICU. Patient was on CPAP this morning. Plan was to take him to trach only this afternoon. Getting IV Precedex. Awake. Moves his head to command. Was able to move his right arm. Wound VAC remains in place. Right c hest tube/pigtail catheter in place. Some air leak. Minimal output from the right RAYA drain. Secretions persist through the left J-tube site. at the bedside. Spoke to the manager social work David. Looking into long-term placement. 01/23/24 Patient is evaluated in the ICU at the bedside. Feels anxious today, precedex is being weaned. He is awake alert. He is edematous. Abdominal wound vac in place. Right chest tube/pigtail in place. 55 ML of drainage overnight. Right sided RAYA drain. J tube in place. On TPN. He is pending approval for select specialty vs. [facility]. Blood work today reveals a sodium level of 131. Continues on IV Ciprofloxacin/ IV fluconazole. 01/24/2024 Patient remains in the intensive care unit as remains at the bedside. He was weaned off the Precedex today did receive a dose of Ativan this morning however his mood has much improved. Abdominal wound VAC in place with evidence of purulent drainage in the canister. He has had 15 mL of drainage overnight from the right sided chest tube. J-tube remains in place. He continues on TPN. He continues on IV ciprofloxacin and IV fluconazole with plans for repeat abdominal pelvis CT today by infectious disease and consider discontinuation of antibiotics afterwards. Sodium level today is 130. Still pending approval for discharge to LTAC versus [facility]. 01/25/2024 Patient remains in the intensive care unit he continues off IV Precedex at this time. Continues with TPN. Repeat chest abdomen pelvis CT completed yesterday which shows a decrease seen in the hydropneumothorax within the right lung base with drainage catheter there is no change in the bibasilar infiltrates and small left effusion. There is interval development of a dilated small bowel loop in the mid abdomen consistent with either a focal ileus or partial obstruction. There are findings suggestive of acute diverticulitis of the sigmoid colon with a small pericolic phlegmon abscess however is decreasing in the interval from compared in the prior study from 3.4 cm to 3 cm. There is moderate anasarca and the peritoneal dialysis catheter and small bowel drainage tube unchanged in position. Blood work today reveals a white blood cell count of 20.1, hemoglobin 8.3, sodium 131, BUN of 21, creatinine 0.66, magnesium 1.7. He is on IV Cipro. IV Flagyl was added today by infectious disease. Was made a full code at request of family. 01/26/2024 Patient remains in the ICU. More awake alert and oriented today. He continues on the trach collar. Sounds less congested. Continues on IV cipro and IV flagyl. White blood cell count better today at 16.3. Hgb 7.2. Sodium 130, potassium 3.4. Continues on TPN. 01/27/2024 Patient is seen in follow-up continues to be in the ICU with multiple consultations following. Family at the bedside and patient is more awake although continues with bronchial congestion and frequent suctioning with the trach collar. Patient remains off Precedex. Patient continues on antibiotics for possible lung abscess that was positive for Pseudomonas with a persistent air leak. Minimal output of the pigtail catheter noted. FiO2 is 40% trach collar maintained on 10 L oxygen. Patient continues on TPN and will adjust accordingly per dietary and pharmacy. Overall prognosis remains extremely poor. Patient remains full code. Per nursing staff patient was denied from [facility] specialties with case management/social work following. 01/28/2024 Patient is eval in follow-up today in the intensive care unit. He had an axillary temp 101.6 for this reason a septic protocol was done including urinalysis blood cultures and viral panel. He remains on IV cipro and IV flagyl. Airleak to the chest tube remains to suction. He continues on a trach collar 40% FiO2 with oxygen at 8 L. He continues on TPN and lipids adjustments per dietary and pharmacy. We are currently not using the J-tube for feedings at this time. He has a wound VAC in place to the midline abdominal incision. He is more awake alert and oriented and less agitated. Sodium level today is 133. Renal function is within normal limits. 01/29/2024 Patient is evaluated today in the ICU with family at the bedside. He continues to have elevated temps. He is more lethargic. White count 20.2 today. Septic work up started. Repeat urinalysis not overly suggesting of infection. Viral panel negative. Chest xray today reveals patchy and confluent bilateral airspace disease similar to slightly worsened. Right-sided pleural catheter demonstrated. There is similar small right pleural effusion. He was started on IV vancomyin, IV meropenem and IV metronidazole. The cipro has been discontinued. Lactic acid 2.3. Sodium 134, renal function normal. Hgb 7.6. Tube feedings remain on hold. Not safe to restart and he continues on TPN/Lipids. 01/30/2024 Patient evaluated today in follow up. Remains in the ICU. Underwent bronchoscopy and repair of a tear in the tracheostomy cuff. Deep sputum culture pending. Patient remains on the mechanical ventilator with ABGs today showing pH level of 0.33, pCO2 of 59, pO2 of 152, HCO3 of 41, total CO2 of 33, hemoglobin 6.6. Lactic acid has normalized. White blood cell count 19.3 today hemoglobin 7.3. Patient is continued on IV propofol as well as backs. Continues on antibiotics in the form of IV vancomycin, IV meropenem, IV metronidazole. Continues on TPN lipids. Chest xray improved throughout both lung ramirez with mild improved aeration at the right lung base. No pneumothorax present. Right-sided chest tube remains in place to suction. 01/31/2024 Patient evaluated today in follow up in the intensive care unit. Remains on the mechanical ventilator, 50% FiO2. Family at the bedside and hoping for extubation today. Continues on TPN/Lipids. Labs today reveal white blood cell count 15.4, hgb 7.0, platelet count 169. Sodium 136, potassium 5.4. BUN 29, creatinine 0.61. Chest xray today reveals ongoing multifocal patchy and confluent airspace disease. A small to moderate right pleural effusion may be slightly increased. Sputum culture from bronchoscopy continues to show pseudomonas. Chest tube remains in place. on IV vancomycin and IV meropenem. 02/01/2024 Evaluated today in follow-up in the intensive care unit. Patient remains on mechanical ventilator with a 50% FiO2. His repeat sputum cultures from the bronchoscopy continue to show Pseudomonas. He continues on IV vancomycin and IV meropenem infectious diseases following closely. He continues with a wound VAC to his midline abdominal incision. Per surgery they feel that the fistula from his J-tube is mature he is currently off of tube feedings at this time though continues on TPN lipids. White blood cell count today is 15.3, hemoglobin 7.2, sodium 140, potassium 5.0, BUN of 33, creatinine 0.59. 2.0 mL of drainage over the last couple days. His chest x-ray today reveals no change in the marked diffuse cardiopulmonary process including scattered interstitial and partially consolidative infiltrates and bilateral pleural effusions which remain unchanged as compared to prior. 02/02/2024 Patient is evaluated today in follow-up in the intensive care unit. Patient remains in the mechanical ventilator with an FiO2 of 50%. His repeat sputum cultures are showing Pseudomonas now with drug resistance Pseudomonas is susceptible to amikacin and tobramycin with intermediate susceptibility to Zosyn and gentamicin. Antibiotics have been adjusted to Tobramycin and IV zosyn. February 03, 2024: I resumed care of the patient today. ICU. I was away last week. Patient had a tracheostomy leak. Underwent a bronchoscopy. And went back on the ventilator. Currently FiO2 5040% and a PEEP of 5. Drips include Precedex. Also getting TPN lipids. Patient getting Dilaudid 0.5 mg every 3 hours. And also Toradol. Good urine output. Right-sided RAYA drain was removed on January 27. Chest tube drain has minimal output. Patient continues to leak from the left-sided G-tube site. Patient's abdomen is rather distended. Surgery will be evaluating the patient today. Patient's and daughter at the bedside. That questions regarding the abdomen will defer the same to surgical team. Patient is extremely high risk for any surgery. Spoke to David the social work case manager. As of now LTAC had declined the patient. Patient also has a stage III on the buttock. Patient has a Shiley #8 tracheostomy tube. Checks x- ray today shows extensive interstitial and patchy bilateral infiltrates. New prominent air density below the diaphragm no peritoneum was to be excluded. Patient's bronchoscopy results show multidrug-resistant Pseudomonas. Patient has been treated with Zosyn and tobramycin-currently getting both.. Patient is awake. Attempts to talk. Able to follow commands. February 04, 2024: ICU. and the daughter at the bedside. is rather tearful. Yesterday evening Dr. Irby from surgery said surgical intervention highly risky including poor outcome. Second opinion was obtained from Dr. Pompa this morning. Also recommended possible hospice. Dr. Russ from pulmonary also spoke to the family. Prognosis remains poor. CT scan abdomen yesterday during showed large pneumoperitoneum. NG tube to suction. On propofol. Patient sedated. Sinus rhythm. Right-sided chest tube remains in place. J-tube site to gravity drainage. Getting TPN lipids. I also suggested comfort measures. February 04: ICU. Saw the patient this morning. and assist at the bedside. Remains on propofol. IVs include TPN and liquids. Right chest tube remains in place. Left-sided J-tube to drainage to gravity. On the ventilator with FiO2 40 and a PEEP of 5. Lethargic but able to follow some commands. February 05: ICU. Patient remains on propofol. A bit lethargic. Does follow simple commands. Getting TPN lipids. Right chest tube in place. Left J-tube to drainage to gravity. On the ventilator FiO2 50%. I walked in the room Dr. Alford from surgery today. Talk to the family. Spoke to Dr. Russ, Dr. Jason Leonard all feel baby should be hospice comfort care. I did express this to the family including the and his daughter and sister at the bedside. They also had a patient's daughter on the phone. All the treatment seems to be futile. Will be extremely appropriate for the patient to be comfort cares measures. I have asked for a multidisciplinary meeting with the family tomorrow at [address] Montes, Dr. Russ, Dr. Alford and myself. Wound VAC in place. Active Medications Albuterol/Ipratropium (Ipratropium-Albuterol 3 Ml Neb) 3 ml INHALATION RT-QID [facility] Last Admin: 02/06/24 15:37 Dose: 3 ml Albuterol/Ipratropium (Ipratropium-Albuterol 3 Ml Neb) 3 ml INHALATION RT-Q2H PRN PRN Reason: Shortness Of Breath Or Wheezing Last Admin: 02/02/24 04:31 Dose: 3 ml Benzocaine (Benzocaine [place] 1 Can) 1 spray MUCOUS MEM TID PRN; Protocol PRN Reason: Mouth Irritation Bisacodyl (Bisacodyl 10 Mg Supp) 10 mg RECTAL DAILY [facility] Last Admin: 02/06/24 08:24 Dose: Not Given Dextrose/Water (Dextrose 50% Syringe 50 Ml) 25 ml IVP PER PROTOCOL PRN; Protocol PRN Reason: Hypoglycemia Last Admin: 01/03/24 06:18 Dose: 25 ml Dextrose/Water (Dextrose 50% Syringe 50 Ml) 50 ml IVP PER PROTOCOL PRN; Protocol PRN Reason: Hypoglycemia Last Admin: 12/25/23 18:03 Dose: 50 ml Hydralazine HCl (Hydralazine Hcl 20 Mg/Ml 1 Ml Vial) 10 mg IVP Q6HR PRN PRN Reason: SBP >140 Last Admin: 02/03/24 13:10 Dose: 10 mg Hydromorphone HCl (Hydromorphone 0.5 Mg/0.5 Ml Syringe) 0.5 mg IVP Q3HR PRN PRN Reason: Pain Last Admin: 02/06/24 09:28 Dose: 0.5 mg Piperacillin Sod/Tazobactam (Sod 3.375 gm/ Sodium Chloride) 100 mls @ 25 mls/hr IVPB Q8HR [facility]; Protocol Last Admin: 02/06/24 08:23 Dose: 25 mls/hr Propofol 1,000 mg/ IV Solution 100 mls @ 9.63 mls/hr IV .[id number] [facility]; Protocol Last Admin: 02/06/24 08:10 Dose: 45 mcg/kg/min, 28.89 mls/hr Parenteral Vitamin Supplement 10 ml/ Zinc/Copper/Manganese/Selenium 1 ml/ Sodium Acetate 50 meq/ Magnesium Sulfate 1.5 gm/ Potassium Phosphate 3 mmol / Sodium Chloride 72 meq/Calcium Gluconate 1 gm/Potassium Chloride 40 meq/Amino Acids/Dextrose 1,088 mls @ 45 mls/hr IV .Q24H [facility] Stop: 02/07/24 03:50 Last Admin: 02/06/24 04:05 Dose: 45 mls/hr Parenteral Vitamin Supplement 10 ml/ Zinc/Copper/Manganese/Selenium 1 ml/ Sodium Acetate 50 meq/ Magnesium Sulfate 1.5 gm/ Potassium Phosphate 3 mmol / Sodium Chloride 72 meq/Calcium Gluconate 1 gm/Potassium Chloride 50 meq/Amino Acids/Dextrose 1,093 mls @ 45 mls/hr IV .Q24H [facility] Tobramycin Sulfate 200 mg/ (Sodium Chloride) 105 mls @ 105 mls/hr IVPB Q36H [facility] Insulin Aspart (Insulin Aspart (Novolog) 100 Unit/Ml Vial) 0 unit SQ 0000,0600,1200,1800 [facility]; Protocol Last Admin: 02/06/24 13:04 Dose: Not Given Ketorolac Tromethamine (Ketorolac 15 Mg/Ml 1 Ml Vial) 15 mg IVP Q6HR PRN PRN Reason: Pain Stop: 02/06/24 17:52 Last Admin: 02/06/24 14:03 Dose: 15 mg Lidocaine HCl (Lidocaine 2% (Pf) 20 Mg/Ml 5 Ml Vial) 60 mg INHALATION Q6HR PRN PRN Reason: Dyspnea Last Admin: 02/01/24 00:29 Dose: 60 mg Lorazepam (Lorazepam 2 Mg/Ml Inj) 1 mg IV Q6HR PRN PRN Reason: Anxiety Last Admin: 02/03/24 13:49 Dose: 1 mg Miscellaneous Information (Phosphorus Replacement Protoco 1 Each Misc) 1 each MISCELLANE DAILY PRN; Protocol PRN Reason: Per Protocol Miscellaneous Information (Magnesium Replacement Protocol 1 Each Misc) 1 each MISCELLANE DAILY PRN; Protocol PRN Reason: Per Protocol Miscellaneous Information (Potassium Replacement Protocol 1 Each Misc) 1 each MISCELLANE DAILY PRN; Protocol PRN Reason: Per Protocol Multi-Ingred Cream/Lotion/Oil/Oint (Hydrophilic Cream 180 Gm Tube) 1 applic TOPICAL BID [facility]; Protocol Last Admin: 02/06/24 10:00 Dose: 1 applic Multi-Ingredient Ointment (Zinc Oxide 20% Oint 28.4 Gm Tube) 1 applic TOPICAL BID PRN; Protocol PRN Reason: Skin Irritation Naloxone HCl (Naloxone 0.4 Mg/Ml 1 Ml Vial) 0.2 mg IV Q2M PRN PRN Reason: Opioid Reversal Ondansetron HCl (Ondansetron 4 Mg/2 Ml Vial) 4 mg IVP Q6HR PRN PRN Reason: Nausea And Vomiting Last Admin: 01/23/24 17:28 Dose: 4 mg Pantoprazole Sodium (Pantoprazole 40 Mg/10 Ml Vial) 40 mg IVP BID [facility] Last Admin: 02/06/24 08:24 Dose: 40 mg Petrolatum (Zinc Oxide Paste (Z-Guard) 1 Applic) 1 applic TOPICAL BID [facility]; Protocol Last Admin: 02/06/24 08:24 Dose: 1 applic Past medical history to include: GERD Social history: . No smoking. Physical examination: VITAL SIGNS: 83, 20, 127 x 77, GENERAL: Lethargic EYES: Pupils equal. , tracking Conjunctiva edouard l. HEENT: External appearance of nose and ears normal, tracheostomy-. NG tube to intermittent suction NECK: JVD unable to assess; masses not palpable. HEART: First and second heart sounds are normal; edema, present LUNGS: Respiratory rate increased, decreased breath sounds right chest wall pigtail catheter ABDOMEN: Soft, some tenderness. Liver spleen not palpable, no masses palpable..jejunostomy tube-dressing in place, . RAYA drain. Incision with stitches with - wound VAC PSYCH: Unable to assess NEURO: Lethargic INVESTIGATIONS, reviewed in the clinical context: February 05: White count 12.5 hemoglobin 7.7 platelets 358 potassium 3.9 creatinine 0.66 February 04: White count 13.4 hemoglobin 7.1 platelets 336 potassium 3[address] abdomen pelvis [February 02] massive pneumoperitoneum with possibly right lower quadrant large bowel and/or small bowel perforation. Hyperemia and wall thickening of the cecum and ascending colon. February 03: White count 8.6 hemoglobin 7.8 platelets 354 potassium 3.1 BUN 39 creatinine 0.62 Sputum [January 21] Pseudomonas aeruginosa-multiple drug-resistant February 02: White count 16.5 hemoglobin 8.6 platelets 385 sodium 142 potassium 3.1 BUN 37 creatinine 0.65 January 21: White count 14.9 hemoglobin 7.9 platelets 399 potassium 3.[address] abdomen pelvis [January 05]: 3.1 cm organized fluid collection within the re ctovesicular space concerning for abscess. No change in right upper lung 4.9 cm fluid collection with a fluid level. For possible pulmonary abscess. Moderate size right lung base multiloculated hydropneumothorax possibly abscess. Additional areas of air bronchograms. January 05: White count 10.6 hemoglobin 7.6 platelets 111 sodium 137 potassium 3.5 BUN 44 creatinine 0.95 January 03: White count 13.4 hemoglobin 8.1 platelets 95 potassium 5.2 creatinine 1.1 albumin 1.8 Sputum culture [December 24] Citrobacter freundii, Pseudomonas aeruginosa Blood culture [December 24] Staphylococcus pettenkoferi December 24: White count 1.5 hemoglobin 8.2 platelets 106 potassium 3.8 BUN [address] chest abdomen without contrast [December 16] right upper lung cavitary lesion with air-fluid level in the posterior aspect and a larger cavitary lesion possibly within the lung parenchyma itself. Extending down towards the diaphragm additional airspace opacities in the left lung base. December 09: White count 26.1 hemoglobin 8.6 platelets 154 potassium 4.1 BUN 86 creatinine 3.31. Hemoglobin this morning was 6.6 prior to transfusion EEG-evidence of generalized cerebral dysfunction and sporadic intermittent higher amplitude sharply contoured waves mainly bifrontal. Showing cortical irritability. 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 Serosal fibrous adhesions. Viable margins. Sputum culture: [November 25]: Citrobacter freundii. Pseudomonas aeruginosa November 20: White count 14.4 hemoglobin 8.8 platelets 229 potassium 4.1 BUN [address] scan abdomen [November 19] possible small bowel obstruction Stool: C. difficile negative November 15: WBC 13 hemoglobin 7.7 platelets 248 potassium 4.3 creatinine 0.87 2D echo: EF 55 to 60%. Kidneys bladder: Unremarkable November 13: White count 12 hemoglobin 6.9 platelets 276 potassium 4.4 creatinine 1.21 magnesium 1.8 iron 6 TIBC 365% saturation 1.64 transferrin 261 ferritin 34.6 B12 569 folate 4.4 November 11: Creatinine 0.86 EGD: Large amount of retained solid liquid food noted in the stomach. Large superficial gastric antral ulceration involving most of the antrum extending into the pylorus causing pyloric stenosis. Biopsies were obtained. Chest x-ray film personally reviewed by me-scattered infiltrates Assessment plan: -Aspiration and gram-negative bacterial pneumonia a bilateral initially from retained gastric contents mostly food and liquids, causing acute hypoxic respiratory failure: On presentation: Subsequent bacterial pneumonia and lung abscess sputum culture November 25: Citrobacter freundii, Pseudomonas aeruginosa. December 13: Klebsiella oxytoca, Pseudomonas aeruginosa. December 29: Multidrug-resistant Pseudomonas aeruginosa IV meropenem-, IV Zosyn.IV ceftolozane/tazobactam, IV daptomycin, tobramycin- all discontinued Currently getting IV Zosyn and tobramycin -Large pneumoperitoneum likely from perforation. Has been told by Dr. Peñaloza and Dr. Pompa from surgery/[second opinion]. Extremely high risk for any surgery. Very poor outcome. Suggest comfort measures -Intermittent asynchronous with the ventilator. -January 28 patient underwent tracheostomy tube exchange and bronchoscopy with lavage by Dr. Love for a leak around the tracheostomy tube. Patient is a #8 Shiley tracheostomy tube. An air leak was resolved Previously had a leak. Currently resolved -Pain, multifactorial Getting Dilaudid every 3 hours with Toradol -Sepsis with septicemia from above Patient received multiple antibiotics -Right l lung abscess, pigtail catheter placed January 07, 2024. Initially about 200 cc of pus obtained. During the procedure large amount of pus poured out of the tracheostomy site when patient was rolled on the left side. Status post bronchoscopy with some lavage on 01/07/2024 - lung abscess larger 1 on the right side-patient cultures are growing Pseudomonas and Klebsiella oxytoca: , Received other antibiotics. Currently on Zosyn and tobramycin -Acute pulmonary edema and fluid overload from hypoalbuminemic state and fluids from IV.:: Has been getting Lasix and dialysis: Both held -Altered mentation. Possibly encephalopathy. Could be delirium.: Improvement CT brain [December 06] nothing acute Neurology following EEG-evidence of generalized cerebral dysfunction and sporadic intermittent higher amplitude sharply contoured waves mainly bifrontal. Showing cortical irritability. Keppra was started on December 07 -Critical care poly- Pedro neuropathy: Slow to respond PT OT -Gallstones, asymptomatic -Small l bowel perforation at site of jejunostomy tube tip with balloon..: Portion of small bowel resected. On November 24. New J-tube was placed.- drainage to gravity:-Now discontinued December 19: J-tube blocked. J-tube replaced on December 20 over wire December 21: Leaking around the J-tube site. Feeding held December 23: J feeding was started yesterday evening but again started leaking increasingly around the J-tube site-feeding held again December 24: J-tube feeding has been held. Patient is currently having increased drainage from the J-tube site -Acute kidney injury. Possible ATN from hypotensive shock: Resolved Renal ultrasound unremarkable. Started on renal replacement therapy on November 28. Last hemodialysis on December 17. Being followed by an nephrology. Good urine output. -Nutrition Jejunostomy tube placed November [address] Ewing Received TPN-this was discontinued. TPN lipids restarted on December 24 -Midline abdominal incision wound dehiscence Wound VAC in place -Acute recurrent atrial fibrillation-converted to sinus rhythm Received IV amiodarone. Cardiology following -Acute hypoxic respiratory failure from aspiration pneumonia, status post ventilator assisted: Reintubated November 25. FiO2 35 PEEP of 5 Tracheostomy tube-by Dr. Zepeda on December 09 Tracheostomy tube changed to #8 Shiley on January [address] Love -Septic shock, recovered -Hypertension, recurrent Had received Cleviprex. Hydralazine added -Intermittent hypotension: Corrected Intermittent use of Levophed. 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 Also anemia of bl ood draw. Iron deficiency anemia Received total of 8 units of blood IV iron. -Severe thrombocytopenia. Would consider coagulation disorder secondary to infection., In the setting of underlying lymphoma.: Fluctuating with infection: Improved Hematology following. 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 difficile ruled out. -Large superficial gastric antral ulceration involving the gastric antrum extending into the pylorus with gastric outlet obstruction. 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 -DNR made on January 12. Now full code with instructions on January 17. Patient is full code now Discussed with Dr. Russ, Dr. Leonard, Dr. Montes. All feel that the treatments are all futile. I have asked for a meeting with the family at 11 AM to include all the consultants. Past Medical History Past Medical History: GERD/Reflux History of Any Multi-Drug Resistant Organisms: None Reported Past Surgical History: Heart Catheterization Additional Past Surgical History / Comment(s): colonsocopy,spinal injection, Past Anesthesia/Blood Transfusion Reactions: No Reported Reaction Past Psychological History: No Psychological Hx Reported Smoking Status: Never smoker Past Alcohol Use History: None Reported Past Drug Use History: None Reported
[2024-02-06] MEDS ORDERED: MD COMMUNICATION TO PHARMACY 1 EACH MISC PO PRN (17:00)
[2024-02-06 17:09] LABS: Glucose,Whole Blood 121 mg/dL (70-110)
[2024-02-06] MEDS: DEXMEDETOMIDINE/0.9% NACL(PMX) 400 MCG in EMPTY BAG 1 BAG IV SCH (20:16)
--- NOTE | 2024-02-06 21:53 | P.PN ---
Subjective Progress Note Date: 02/06/24 Patient seen and examined at bedside. No acute events. Objective - Vital Signs Vital signs: Vital Signs Temp 99.0 F 02/06/24 16:00 Pulse 91 02/06/24 19:57 Resp 25 H 02/06/24 19:57 BP 156/104 02/06/24 19:00 Pulse Ox 100 02/06/24 19:00 FiO2 35 02/06/24 19:46 Intake & Output 02/06/24 02/06/24 02/07/24 06:59 18:59 06:59 Intake Total 3102.632 1005 Output Total 1140 1450 Balance 1962.632 -445 Weight 107.5 kg Intake: IV 1160 805 0.9 Normal Saline @ KVO 260 110 Piperacillin-Tazobactam 3 100 100 .375 gm In Sodium Chloride 0.9% 100 ml @ 25 mls/hr IVPB Q8HR [facility] Rx# :[id number] Potassium Chloride 20 meq 800 In Water For Injection 1 100ml.bag @ 50 mls/hr IVPB Q2H [facility] Rx#: [id number] TPN 495 Tobramycin Sulfate 160 mg 100 In Sodium Chloride 0.9% 100 ml @ 104 mls/hr IVPB Q24H [facility] Rx#:[id number] Intake, IV Titration 1357.632 200 Amount Mvi, Adult No.4 with Vit 1083 K 10 ml Trace (Conc-1Ml/ Dose) 1 ml Sodium Acetate 50 meq Magnesium Sulfate gm 1.5 gm Potassium Phosphate 3 mmol Sodium Chloride 4Meq/ml Vial 72 meq Calcium Gluconate 1 gm Potassium Chloride 40 meq In Amino Acids 5 %/ Dextrose 20 % 1,000 ml @ 45 mls/hr IV .Q24H [facility] Rx #:[id number] propofoL 1,000 mg In 274.632 200 Empty Bag 1 bag @ 15 MCG/ KG/MIN 9.63 mls/hr IV . [id number] [facility] Rx#:[id number] TPN/PPN 585 TPN 585 Output: Chest Tube Drainage 0 0 Chest Tube Right 0 0 Gastric Drainage 200 Drainage 40 60 Medial Abdomen 40 60 Urine 900 1390 Other: Voiding Method Indwelling Catheter Indwelling Catheter ABP, PAP, CO, CI - Last Documented Arterial Blood Pressure 183/89 - Constitutional General appearance: Present: no acute distress - Gastrointestinal Gastrointestinal Comment(s): Distended abdomen, J-tube in place with minimal output from around the tube site, wound VAC in place - Labs CBC & Chem 7: 02/06/24 08:20 02/06/24 08:20 Labs: Abnormal Lab Results - Last 24 Hours (Table) 02/06/24 02/06/24 02/06/24 Range/Units 05:47 05:48 08:18 WBC (3.8-10.6) k/uL RBC (4.30-5.90) m/uL Hgb (13.0-17.5) gm/dL Hct (39.0-53.0) % RDW (11.5-15.5) % Neutrophils # (1.3-7.7) k/uL ABG pH 7.49 H (7.35-7.45) ABG pO2 135 H (83-108) mmHg ABG HCO3 29 H (21-25) mmol/L ABG Total CO2 30 H (19-24) mmol/L ABG O2 Saturation 99.9 H (94-97) % Hemoglobin 7.2 L (13.0-17.5) gm/dL Chloride (98-107) mmol/L BUN (9-20) mg/dL Glucose (74-99) mg/dL POC Glucose (mg/dL) 121 H 128 H (70-110) mg/dL Calcium (8.4-10.2) mg/dL Alkaline Phosphatase (38-126) U/L Total Protein (6.3-8.2) g/dL Albumin (3.5-5.0) g/dL 02/06/24 02/06/24 02/06/24 Range/Units 08:20 08:20 13:03 WBC 12.5 H (3.8-10.6) k/uL RBC 2.52 L (4.30-5.90) m/uL Hgb 7.7 L (13.0-17.5) gm/dL Hct 24.1 L (39.0-53.0) % RDW 15.9 H (11.5-15.5) % Neutrophils # 9.2 H (1.3-7.7) k/uL ABG pH (7.35-7.45) ABG pO2 (83-108) mmHg ABG HCO3 (21-25) mmol/L ABG Total CO2 (19-24) mmol/L ABG O2 Saturation (94-97) % Hemoglobin (13.0-17.5) gm/dL Chloride 109 H (98-107) mmol/L BUN 26 H (9-20) mg/dL Glucose 120 H (74-99) mg/dL POC Glucose (mg/dL) 124 H (70-110) mg/dL Calcium 7.7 L (8.4-10.2) mg/dL Alkaline Phosphatase 270 H (38-126) U/L Total Protein 6.0 L (6.3-8.2) g/dL Albumin 2.2 L (3.5-5.0) g/dL 02/06/24 Range/Units 17:07 WBC (3.8-10.6) k/uL RBC (4.30-5.90) m/uL Hgb (13.0-17.5) gm/dL Hct (39.0-53.0) % RDW (11.5-15.5) % Neutrophils # (1.3-7.7) k/uL ABG pH (7.35-7.45) ABG pO2 (83-108) mmHg ABG HCO3 (21-25) mmol/L ABG Total CO2 (19-24) mmol/L ABG O2 Saturation (94-97) % Hemoglobin (13.0-17.5) gm/dL Chloride (98-107) mmol/L BUN (9-20) mg/dL Glucose (74-99) mg/dL POC Glucose (mg/dL) 121 H (70-110) mg/dL Calcium (8.4-10.2) mg/dL Alkaline Phosphatase (38-126) U/L Total Protein (6.3-8.2) g/dL Albumin (3.5-5.0) g/dL Assessment and Plan Plan: Long discussion was had with the family at bedside with patient's , daughter and other family member with multiple people also present over video call. At this point, there is no recommendation for surgical intervention as patient is high risk for any abdominal surgical intervention with significant adhesive disease, frozen abdomen and extreme likelihood of creation of further enterotomies and enterocutaneous fistula formation. There is a possibility that patient would also on the operating table. This was made clear to the patient's family. Multiple questions about bowel perforation were discussed with the patient. It has been 48 hours since the finding of bowel perforation without any findings of sepsis. Patient appears to be tolerating the conservative management with antibiotic treatment at this time as he has not developed sepsis. Overall, patient's prognosis is extremely poor. Continue to consider comfort measures for this patient.
[2024-02-06 23:51] LABS: Glucose,Whole Blood 130 mg/dL (70-110)
[2024-02-07] MEDS: [UNRECOGNIZED DRUG - REMARK] IV SCH (04:21)
[2024-02-07 05:23] LABS: ABG Base Excess 4.2 mmol/L; ABG HCO3 28 mmol/L (21-25); ABG Oxygen Saturation 98.9 % (94-97); ABG PCO2 38 mmHg (35-45); ABG PH 7.48 (7.35-7.45); ABG PO2 102 mmHg (83-108); ABG TCO2 29 mmol/L (19-24); Allen Test Performed? Yes
[2024-02-07 05:26] LABS: Glucose,Whole Blood 159 mg/dL (70-110)
[2024-02-07 06:03] LABS: African American GFR (CKD) >90 (>60 ml/min/1.73 sqM); Anion Gap 4 mmol/L; Blood Urea Nitrogen 20 mg/dL (9-20); Calcium 6.8 mg/dL (8.4-10.2); Carbon Dioxide 22 mmol/L (22-30); Chloride 116 mmol/L (98-107); Glucose 143 mg/dL (74-99); Magnesium 1.8 mg/dL (1.6-2.3); Non-African American GFR(CKD) >90 (>60 ml/min/1.73 sqM); Phosphorus 3.4 mg/dL (2.5-4.5); Potassium 3.4 mmol/L (3.5-5.1); Sodium 142 mmol/L (137-145)
[2024-02-07 06:11] LABS: Glucose,Whole Blood 159 mg/dL (70-110)
[2024-02-07] MEDS: POTASSIUM CHLORIDE 20 MEQ in WATER FOR INJECTION 1 100ML.BAG IVPB SCH (06:24)
[2024-02-07] MEDS: MAGNESIUM SULFATE-D5W PMX 1 GM in DEXTROSE/WATER 1 100ML.BAG IVPB ONE (06:24)
[2024-02-07] MEDS: FUROSEMIDE 10 MG/ML 2 ML VIAL IV ONE (11:01)
[2024-02-07] MEDS: SODIUM CHLORIDE 0.9% IVPB SCH (11:01)
[2024-02-07] MEDS: TOBRAMYCIN SULFATE IVPB SCH (11:01)
[2024-02-07 12:54] LABS: Glucose,Whole Blood 171 mg/dL (70-110)
--- NOTE | 2024-02-07 13:05 | CDI ---
Documentation Clarification Form Date: 01/27/2024 10:32:00 AM From: Herlinda Ventura RN CCDS. Phone: [phone] Admit Date: 11/12/2023 09:12:00 AM Patient Name: Salbador Lawton Visit Number: [id number] Discharge Date: ATTENTION: The Clinical Documentation Specialists (CDI) and [facility] Coding Staff appreciate your assistance in clarifying documentation. Please respond to the clarification below the line at the bottom and electronically sign. The CDI & [facility] Coding staff will review the response and follow-up if needed. Please note: Queries are made part of the Legal Health Record. If you have any questions, please contact the author of this message via ITS. Doctor/Provider: Dick Ewing Abdominal wound dehiscence is documented 12/13, Pulmonary note, and patient had [insert procedure, date].Additional clarification is requested regarding the relationship, if any, that exists between the diagnosis and the procedure. Patients Admitting Diagnosis: Small Bowel Obstruction Post-Operative Diagnosis: Perforated Small Bowel Procedure performed: Exploratory Laparotomy.Abdominal Washout.Small bowel resection.Wizel Feeding Jejunostomy History/Risk Factors: 73 year old male underwent EGD and was found to have ulcerated around the antrum and obstruction to the pylorus.A lot of retained food was found.Patient aspirated.Had to be intubated and brought to the ICU. Clinical Indicators: 12/13 Pulmonology: The patient had a fever and will be re-cultured.In addition, the midline incision in the abdomen, shows some evidence of purulence, and will have surgeon, take a look at that.Currently the patient is not on any antibiotics. 12/13 Surgery: Will continue to monitor midline wound dehiscence.Fascia is intact 12/18 Wound care consult: Non healing ulceration with muscle involvement other site.#2 Surgical wound dehiscence. 12/13 Blood Culture Grain Stain: Staphylococcus epidermidis Molecular ID 12/13 Abdomen Anaerobic Culture: Bacteroides thetaiotaomicron Treatment: 11/11 11/26 Zosyn IVPB Q8H; 11/23 0.9NS IVPB 1L Bolus x 1; 11/23 Tylenol IVPB Q6H x 4 bags, 11/24 Vancomycin IVPB x 1; 11/25 Tylenol IVPB x 1; 11/26 Vancomycin IVPB x 1; 11/29 12/09 Meropenem IVPB HS Consults: See above What relationship, if any, exists between the diagnosis of surgical wound dehiscence and the procedure: [ ] Surgical wound dehiscence is a complication of surgical procedure [ ] Surgical wound dehiscence is an expected outcome of the surgical procedure [ ] Surgical wound dehiscence is related to patients co-morbid condition(s) of suspected Infection at the, Severe malnutrition , Non Hodgkins lymphoma and Sepsis not a complication of the procedure [ ] Other please specify ____ [ ] Unable to determine (Template Last Revised: May 2020) MTDD
--- NOTE | 2024-02-07 14:42 | P.PN ---
Subjective Progress Note Date: 02/07/24 Principal diagnosis: Reason for follow-up is pneumonia and diverticulitis Patient is 73-year-old with male initial presentation to the hospital on 11/12/2023 after the patient did have aspiration while undergoing elective endoscopy, diagnosed with a non-Hodgkin lymphoma subsequently did have exploratory laparotomy for perforated small bowel, abdominal washout and feeding jejunostomy tube patient did require dialysis catheter placement for dialysis during this hospital stay which was subsequently discontinued, and tracheostomy for respiratory failure. On today's evaluation that is 02/07/2024, the patient continues to be afebrile, the patient is on ventilator via trach FiO2 is currently stable at 40% no significant purulent secretion through the ET patient is hemodynamic stable not requiring any pressor support and no diarrhea has been reported. Patient did have a creatinine of 0.62 no CBC was done today Objective - Vital Signs Vital signs: Vital Signs Temp 98.1 F 02/07/24 08:00 Pulse 90 02/07/24 09:15 Resp 22 02/07/24 09:00 BP 164/105 02/07/24 09:00 Pulse Ox 98 02/07/24 09:00 FiO2 40 02/07/24 09:00 Intake & Output 02/06/24 02/07/24 02/07/24 18:59 06:59 18:59 Intake Total 1005 783.755 90 Output Total 1450 700 350 Balance -445 83.755 -260 Weight 110.2 kg 110.2 kg Intake: IV 805 660 90 0.9 Normal Saline @ KVO 110 120 Piperacillin-Tazobactam 3 100 .375 gm In Sodium Chloride 0.9% 100 ml @ 25 mls/hr IVPB Q8HR [facility] Rx# :[id number] TPN 495 540 90 Tobramycin Sulfate 160 mg 100 In Sodium Chloride 0.9% 100 ml @ 104 mls/hr IVPB Q24H [facility] Rx#:[id number] Intake, IV Titration 200 123.755 Amount Dexmedetomidine/0.9% NaCl 100.000 (Pmx) 400 mcg In Empty Bag 1 bag @ 0.2 MCG/KG/HR 5.375 mls/hr IV .[id number] [facility] Rx#:[id number] propofoL 1,000 mg In 200 23.755 Empty Bag 1 bag @ 15 MCG/ KG/MIN 9.63 mls/hr IV . [id number] [facility] Rx#:[id number] Output: Chest Tube Drainage 0 0 Chest Tube Right 0 0 Drainage 60 0 Medial Abdomen 60 0 Urine 1390 700 350 Other: Voiding Method Indwelling Catheter Indwelling Catheter ABP, PAP, CO, CI - Last Documented Arterial Blood Pressure 176/84 - Exam GENERAL DESCRIPTION: An elderly male intubated with trach RESPIRATORY SYSTEM: Unlabored breathing , coarse breath sounds anteriorly HEART: S1 S2 regular rate and rhythm , ABDOMEN: Soft , abdominal distention and tenderness EXTREMITIES: No edema feet - Labs CBC & Chem 7: 02/06/24 08:20 02/07/24 06:00 Labs: Abnormal Lab Results - Last 24 Hours (Table) 02/06/24 02/06/24 02/06/24 Range/Units 13:03 17:07 23:50 ABG pH (7.35-7.45) ABG HCO3 (21-25) mmol/L ABG Total CO2 (19-24) mmol/L ABG O2 Saturation (94-97) % Hemoglobin (13.0-17.5) gm/dL Potassium (3.5-5.1) mmol/L Chloride (98-107) mmol/L Creatinine (0.66-1.25) mg/dL Glucose (74-99) mg/dL POC Glucose (mg/dL) 124 H 121 H 130 H (70-110) mg/dL Calcium (8.4-10.2) mg/dL 02/07/24 02/07/24 02/07/24 Range/Units 05:19 05:24 06:00 ABG pH 7.48 H (7.35-7.45) ABG HCO3 28 H (21-25) mmol/L ABG Total CO2 29 H (19-24) mmol/L ABG O2 Saturation 98.9 H (94-97) % Hemoglobin 7.4 L (13.0-17.5) gm/dL Potassium 3.4 L (3.5-5.1) mmol/L Chloride 116 H (98-107) mmol/L Creatinine 0.62 L (0.66-1.25) mg/dL Glucose 143 H (74-99) mg/dL POC Glucose (mg/dL) 159 H (70-110) mg/dL Calcium 6.8 L (8.4-10.2) mg/dL 02/07/24 Range/Units 06:09 ABG pH (7.35-7.45) ABG HCO3 (21-25) mmol/L ABG Total CO2 (19-24) mmol/L ABG O2 Saturation (94-97) % Hemoglobin (13.0-17.5) gm/dL Potassium (3.5-5.1) mmol/L Chloride (98-107) mmol/L Creatinine (0.66-1.25) mg/dL Glucose (74-99) mg/dL POC Glucose (mg/dL) 159 H (70-110) mg/dL Calcium (8.4-10.2) mg/dL Assessment and Plan (1) Sepsis Current Visit: Yes Status: Acute Code(s): A41.9 - SEPSIS, UNSPECIFIED ORGANISM SNOMED Code(s): 30274957 (2) Pneumonia Current Visit: Yes Status: Acute Code(s): J18.9 - PNEUMONIA, UNSPECIFIED ORGANISM SNOMED Code(s): 552034772 (3) Bacteremia Current Visit: Yes Status: Acute Code(s): R78.81 - BACTEREMIA SNOMED Code(s): 7067181 (4) Peritonitis Current Visit: Yes Status: Acute Code(s): K65.9 - PERITONITIS, UNSPECIFIED SNOMED Code(s): 59802383 Plan: 1 the patient did have a new fever also noticed to have worsening of his respiratory status concerning for pneumonia 2repeat blood culture have been negative sputum culture from 1127 is growing drug-resistant Pseudomonas aeruginosa sensitive only to tobramycin amikacin intermediate sensitive to Zosyn patient also have a bronchoscopy on 1128 that specimen is growing Pseudomonas with multidrug resistant pattern and intermediate to Zosyn sensitive to amikacin and tobramycin 3patient did have CT abdominal pelvis with evidence of large pneumoperitoneum concerning for possible large/small bowel perforation patient has been evaluated by Dr. subramanian for a second opinion from surgical standpoint and has been considered high risk for any surgical intervention, and did attend family meeting along with the other physician lasted more an hour, all family members are aware current treatment for perforated colon/peritonitis is empiric as we do not have any culture data from the abdominal focus patient did have a multidrug- resistant Pseudomonas aeruginosa from a sputum culture which is only intermediate to Zosyn and sensitive to tobramycin 4patient will be Zosyn and tobramycin creatinine stable and will monitor closely Dictation was produced using [employer] dictation software. please excuse any grammatical, word or spelling errors. Time with Patient: Greater than 30
--- NOTE | 2024-02-07 15:51 | P.PN ---
Subjective Progress Note Date: 02/07/24 Principal diagnosis: Acute hypoxic respiratory failure requiring intubation mechanical ventilation secondary to aspiration. This is a 73-year-old white male with history of chronic abdominal pain for the last 8 months has been treated with Protonix 40 mg daily for the last 3 months with no improvement. Patient had a 22 pound weight loss in the last [address] of the abdomen and pelvis 3 weeks ago showed thickening of the antral wall with pathological adenopathy posterior to the stomach suspicious of neoplasm. Today the patient underwent elective upper endoscopy to evaluate further, patient received IV sedation by anesthesia endoscope was inserted into the mouth, esop hagus was intubated without any difficulty there was evidence of large amount of liquid and solid food noted in the stomach suggestive of gastric outlet obstruction. Scope could not be advanced through the pylorus, however in the prepyloric area there was a large superficial ulceration identified with multiple biopsies were done from this area. The body cardia and fundus could not adequately visualize because of large amount of retained food in the stomach. Scope was withdrawn back to the stomach and upon careful examination the mucosa of the antrum body and cardia as well as the fundus appeared normal. Procedure was being performed and biopsies were done patient threw up and subsequently became hypoxic there was clearly evidence of witnessed aspiration anesthesia intubated the patient, procedure was terminated, and the patient was transferred to the ICU, this consult was initiated. Patient is now on assist- control rate of 20 tidal volume 500 FiO2 70% PEEP of 10 ABG is pending, earlier ABG showed profound hypoxia patient is on propofol at 50 mcg/kg/min, next ABG is pending. Chest x-ray showed chronic changes without evidence of acute pulmonary disease. 01/10/2024, the patient is on low-dose Precedex. Currently comfortable, sensitive to mechanical ventilator. Output from the pigtail has dropped and the patient continues to have a positive airleak. The chest x-ray shows bilateral consolidation worse on the right and there is a small right apical pneumothorax. Pigtail catheter is in a good location. Blood gas showed a pH of 7.48 with a pCO2 of 35 and a pO2 of 83. He is on assist-control mode with rate of 20, tidal volume of 600, FiO2 30% with a PEEP of 5. RAYA drain output is serosanguineous. TPN is at 90 cc an hour. Fluid balance is -700 cc. The white cell count is at 15.4, hemoglobin is at 6.7 and the patient was given a unit of packed RBC and a platelet count is 188. Electrolytes show a BUN of 46 with a creatinine of 0.7, sodium of 135, potassium level of 3.3. Antibiotics has been modified to a combination of ciprofloxacin and tobramycin as the patient showed quinolone sensitive Pseudomonas in the sputum and in the drain the abscess from the right lung. On 02/01/2024, the patient is still on propofol and currently is off Nimbex. Propofol is running at 30 mcg/kg/min. He remains on assist-control mode of mechanical ventilation at rate of 28, tidal volume of 500, FiO2 50% with a PEEP of 6. Blood gases showed a pH of 7.44 with a pCO2 of 53 and pO2 of 115. Chest x-ray shows bilateral consolidation. No significant cavitation. No pneumoth orax. There is a right-sided pigtail catheter in place. No significant change in the patient has diffuse bilateral pneumonia. Bronchoscopy was done on 01/30/2024 was consistent with Pseudomonas aeruginosa. The patient remains on a combination of meropenem, vancomycin and Flagyl. He is afebrile. Hemodynamically stable. Cardiac rhythm is sinus. Continues to have leaks around his tracheostomy tube and I decided to exchange tracheostomy tube to XLT longer tracheostomy tube to prevent post leaks. The patient remains on TPN for nutritional support. Fluid balance is -2.3 L as the patient received diuretics yesterday. Continues to have edema in all 4 extremities. The white cell count is lower at 15.3 with a hemoglobin of 7.2 and a platelet count of 408. Sodium is at 140, bicarb is at 34, BUN 33 with a creatinine of 0.5. No other significant events overnight. He seems to be more arousable compared to yesterday. On 02/02/2024, the patient is on Precedex running at 1.1 mcg/kg/min. He is a bit restless. Awake and tries to talk while even being on the mechanical ventilator. He remains on assist-control mode of mechanical ventilation. He is on volume-cycled rate of 20, tidal volume of 500, FiO2 of 50% with a PEEP of 6. Blood gas showed pH of 7.38 with a pCO2 of 61 and pO2 115. Chest x-ray shows multifocal bilateral pneumonia consolidation. No pneumothorax. Pigtail cath eter still present in the right hemithorax and there is intermittent air leak. No significant output. Fluid balance is +1.1 L over the past 24 hours. The most recent bronchioloalveolar lavage obtained from this patient showed Pseudomonas aeruginosa. Nevertheless, sensitivities have been changed and is Pseudomonas aeruginosa is multidrug-resistant, there is intermediate sensitivity to Zosyn and tobramycin and based on that the patient was started on a combination of Zosyn and tobramycin. He remains on TPN for nutritional support rate of 90 cc an hour. Blood work shows a white cell count of 11.1, hemoglobin is down to 6.4 and a platelet count is at 233. BUN 34 with a creatinine of 0.6 and a sodium levels at 141 with a potassium level is a 3.9. Vancomycin has been discontinued. Abdominal exam remains unchanged. Patient was seen today on , remains in the ICU, remains intubated and mechanically ventilated, patient had a new tracheostomy placed because of leak from his previous tracheostomy this was done by Dr. Beckford on 02/01/24. He also had bronchoscopy and mucous plugs extraction on 01/28 and 01/04 0. Patient is on assist-control rate 20 tidal volume 620 FiO2 50% PEEP of 5 ABG showed a pO2 of 122 pCO2 44 pH of 7.49 hence FiO2 was cut down to 40%. Patient will be given a weaning trial with a pressure support of 14 and CPAP, however he only lasted few minutes and his respiratory rate was in the high 40s and tidal volume was not great. Patient had to be placed back on assist mode of mechanical ventilation shortly after. Remains on Precedex at 0.7, TPN at 90 cc/h patient received a unit of packed RBCs on 02/01 for hemoglobin of 6.4. His sputum continues to show Pseudomonas and this was from 01/29 remains on Zosyn. Continues to have right-sided pigtail catheter with ongoing air leak. Not ready to remove. No evidence of pneumothorax noted on the chest x-ray, continues to have bilateral airspace disease. WBC count is 16.5 hemoglobin 8.6, Basic met abolic profile is normal potassium 3.1 BUN is 37 creatinine 0.65 Seen today on 02/04/2024, ICU, intubated and mechanically ventilated, patient had a CT of the abdomen and pelvis yesterday done mostly because of worsening abdominal distention and abnormal findings on the chest x-ray is suggestive of free air under the hemidiaphragm. Indeed the patient was found to have perforated viscus and pneumoperitoneum. The main situation here is the fact that the patient is extremely poor surgical candidate, and he is critically ill, doubt if he would even survive this perforation with medical therapy. In the meantime the patient remains on antibiotics in the form of tobramycin and Zosyn surgery on the case clearly stated to the that surgical mortality is 100%, and they would not recommend surgical intervention. Family is also aware that medical therapy alone has very high mortality considering his overall condition. Patient has been on antibiotics all along, he is intubated and mechanically ventilated on AC mode of 20 tidal volume 620 FiO2 40% PEEP of 5 patient ABG showed a pO2 of 109 pCO2 43 pH of 7.51, chest x-ray continues to show hydropneumothorax and bilateral airspace disease. I had a long discussion with the family today at bedside and even suggested comfort care measures to the family, as mortality is extremely high either way. Family to make a decision on comfort care measures/hospice. Time continue antibiotics, continue TPN, continue propofol at 45 mcg/kg/min, patient is not in any shape to consider any form of weaning at this point considering this new abdominal findings/bowel perforation WBC count today is 18.6 hemoglobin 7.8 basic metabolic profile is normal potassium is a bit low at 3.1 BUN is 39 creatinine 0.60 Patient was evaluated today on 02/05/2024, remains in ICU, intubated mechanically ventilated on assist-control rate of 20 tidal volume 620 FiO2 40% PEEP of 5 ABG showed a pO2 of 91 pCO2 40 pH of 7.50 patient developed bowel perforation and pn eumoperitoneum day before yesterday, and he is on antibiotics, surgery is not planning any surgical intervention because of high risk. Patient continues to have distended abdomen patient remains on propofol at 45 mcg/kg/min he is also on TPN at 45 mL/h. Today I went ahead and placed a right radial arterial line, patient is getting blood draws and prefers to have it done from the arterial line instead of poking him on a daily basis. X-ray continues show similar findings compared to chest x-ray yesterday, continues to have pigtail catheter on the right side with ongoing air leak. Antibiotics arce remains on Zosyn and tobramycin sputum cultures have been growing Pseudomonas aeruginosa and now his abdominal findings are of concerns and the patient has acute pneumoperitoneum. Patient was evaluated today on 02/06/2024, remains in the ICU remains intubated remains ventilated. Patient is on assist-control rate of 20 tidal volume 620 FiO2 40% PEEP of 5 ABG showed a pO2 of 135 pCO2 38 pH of 7.49. Continues to have air leak noted in the chest tube. Chest x-ray is basically about the same continues to have scattered infiltrates left more so than right, pigtail catheter remains in place, no evidence of pneumothorax noted on the chest x-ray today. WBC is 12.5 hemoglobin is 7.7, basic metabolic profile is normal renal profile is normal bicarb is 28. Patient remains on Zosyn and on tobramycin. Hemoglobin today is 7.7. Patient remains on TPN is at bedside, updated the on his condition and explained to the that his condition is extremely poor, she was expecting to hear from all 3 surgeons who have seen this patient since admission Patient was seen today on 02/07/2024, patient remains about this, he is on assist-control mode of mechanical ventilation, on Precedex, this was started yesterday to replace propofol, patient is arousable, generally weak, follows very simple instructions, a bit lethargic. Patient is on assist-control rate of 20 tidal volume 620 FiO2 35% PEEP of 5 ABG showed a pO2 of 102 pCO2 38 pH of 7.48 hence no changes were made in vent settings his Precedex dose is now 0.6 g/kg/h, remains on antibiotics in the form of Zosyn and tobramycin as per infectious disease on the case, remains on TPN at 45 cc/h today we had a long bleeding with the family and the different consultants on the case, and family was made aware of his poor prognosis and the surgeon made it clear that it is impossible and extremely risky to take him back to surgery and perform exploratory laparotomy he feels that this is potentially disastrous. Hence the patient cannot have surgery and in the meantime we are medically managing knowing that mortality is extremely high either way whether the patient goes to surgery or continue medical therapy I specifically asked the surgeon if he would consider exploratory laparotomy and he clearly stated he would not do so. Because of the high risk and totality. In the meantime family does not want to proceed to comfort care and it is impossible to manage this patient the way we are managing him at home, could not be transferred to an institution as no institution will accept the transfer including tertiary care institutions ABG was reviewed Labs today were reviewed renal profile was reviewed patient is a bit edematous and I recommended 1 dose of Lasix 20 mg IV push chest x-ray is basically the same continues to have bilateral airspace disease and continues to have ongoing air leak/bronchopleural fistula hence I have no plans to remove his pigtail catheter at this point yet Objective - Vital Signs Vital signs: Vital Signs Temp 98.1 F 02/07/24 08:00 Pulse 75 02/07/24 13:24 Resp 22 02/07/24 09:00 BP 164/105 02/07/24 09:00 Pulse Ox 98 02/07/24 09:00 FiO2 35 02/07/24 15:31 Intake & Output 02/06/24 02/07/24 02/07/24 18:59 06:59 18:59 Intake Total 1005 783.755 402 Output Total 1450 700 350 Balance -445 83.755 52 Weight 110.2 kg 110.2 kg Intake: IV 805 660 90 0.9 Normal Saline @ KVO 110 120 Piperacillin-Tazobactam 3 100 .375 gm In Sodium Chloride 0.9% 100 ml @ 25 mls/hr IVPB Q8HR [facility] Rx# :[id number] TPN 495 540 90 Tobramycin Sulfate 160 mg 100 In Sodium Chloride 0.9% 100 ml @ 104 mls/hr IVPB Q24H [facility] Rx#:[id number] Intake, IV Titration 200 123.755 312 Amount Dexmedetomidine/0.9% NaCl 100.000 (Pmx) 400 mcg In Empty Bag 1 bag @ 0.2 MCG/KG/HR 5.375 mls/hr IV .[id number] [facility] Rx#:[id number] Mvi, Adult No.4 with Vit 312 K 10 ml Trace (Conc-1Ml/ Dose) 1 ml Sodium Acetate 50 meq Magnesium Sulfate gm 1.5 gm Potassium Phosphate 3 mmol Sodium Chloride 4Meq/ml Vial 72 meq Calcium Gluconate 1 gm Potassium Chloride 50 meq In Amino Acids 5 %/ Dextrose 20 % 1,000 ml @ 45 mls/hr IV .Q24H [facility] Rx #:[id number] propofoL 1,000 mg In 200 23.755 Empty Bag 1 bag @ 15 MCG/ KG/MIN 9.63 mls/hr IV . [id number] [facility] Rx#:[id number] Output: Chest Tube Drainage 0 0 Chest Tube Right 0 0 Drainage 60 0 Medial Abdomen 60 0 Urine 1390 700 350 Other: Voiding Method Indwelling Catheter Indwelling Catheter ABP, PAP, CO, CI - Last Documented Arterial Blood Pressure 176/84 - Exam General: Revealed 73-year-old white male on mechanical ventilation, sedated, on Precedex arousable but quite weak and frail. Skin: Skin is warm and dry and no rashes or lesions are noted. Tracheostomy is intact. Eye: Pupils are equal, round and reactive to light, extra-ocular movements are intact; there is normal conjunctiva bilaterally. Ears, nose, mouth and throat: There are moist mucous membranes and no oral lesions. Neck: The neck is supple, there is no tenderness or JVD. Tracheostomy is intact Cardiovascular: There is a regular rate and rhythm. No murmur, rub or gallop is appreciated. Respiratory: Crackles at the bases, no rhonchi no wheezes, right-sided pigtail catheter is the same with ongoing air leak Gastrointestinal: Abdomen is distended, slightly tender to palpation especially in the left lower quadrant area no bowel sounds, continues to have leakage around the J-tube and continues to have a wound VAC in mid abdomen. Musculoskeletal: No deformities and no limitation range of motion other the patient seems to be generally weak. Neurological: Sedated, on Precedex arousable follows very simple instructions Extremities: 2+ bipedal edema - Labs CBC & Chem 7: 02/06/24 08:20 02/07/24 06:00 Labs: Abnormal Lab Results - Last 24 Hours (Table) 02/06/24 02/06/24 02/07/24 Range/Units 17:07 23:50 05:19 ABG pH 7.48 H (7.35-7.45) ABG HCO3 28 H (21-25) mmol/L ABG Total CO2 29 H (19-24) mmol/L ABG O2 Saturation 98.9 H (94-97) % Hemoglobin 7.4 L (13.0-17.5) gm/dL Potassium (3.5-5.1) mmol/L Chloride (98-107) mmol/L Creatinine (0.66-1.25) mg/dL Glucose (74-99) mg/dL POC Glucose (mg/dL) 121 H 130 H (70-110) mg/dL Calcium (8.4-10.2) mg/dL 02/07/24 02/07/24 02/07/24 Range/Units 05:24 06:00 06:09 ABG pH (7.35-7.45) ABG HCO3 (21-25) mmol/L ABG Total CO2 (19-24) mmol/L ABG O2 Saturation (94-97) % Hemoglobin (13.0-17.5) gm/dL Potassium 3.4 L (3.5-5.1) mmol/L Chloride 116 H (98-107) mmol/L Creatinine 0.62 L (0.66-1.25) mg/dL Glucose 143 H (74-99) mg/dL POC Glucose (mg/dL) 159 H 159 H (70-110) mg/dL Calcium 6.8 L (8.4-10.2) mg/dL 02/07/24 Range/Units 12:52 ABG pH (7.35-7.45) ABG HCO3 (21-25) mmol/L ABG Total CO2 (19-24) mmol/L ABG O2 Saturation (94-97) % Hemoglobin (13.0-17.5) gm/dL Potassium (3.5-5.1) mmol/L Chloride (98-107) mmol/L Creatinine (0.66-1.25) mg/dL Glucose (74-99) mg/dL POC Glucose (mg/dL) 171 H (70-110) mg/dL Calcium (8.4-10.2) mg/dL Assessment and Plan Assessment: Impression: Acute hypoxic respiratory failure requiring intubation mechanical ventilation secondary to aspiration. Status post tracheostomy on 12/10/2023 The patient has bilateral pneumonia with a cavitary infiltrate in the right upper lobe, secondary to Pseudomonas aeruginosa, presently on Zosyn. Status post bronchoscopy on 01/28 and 01/04 and tracheostomy tube change on 01/04 Status post J-tube placement 11/16/2023, multiple complications since then related to the J-tube placement requiring multiple surgeries. 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 No drainage noted from the PEG tube however he continues to have ongoing airleak Acute peritonitis secondary to above, secondary to small bowel perforation with abdominal contamination Septic shock secondary to above Paroxysmal atrial fibrillation Weight loss secondary to non-Hodgkin's lymphoma Acute aspiration pneumonia/right upper lobe lung abscess, improved, however patient went on to develop Klebsiella pneumonia and empyema related to Klebsiella pneumonia quiring pigtail catheter placement Acute aspiration during upper endoscopy most likely secondary to gastric outlet obstruction secondary to non-Hodgkin's lymphoma based on the pathology from stomach biopsies 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 At 1 point patient was able to tolerate trach collar for almost a week, but considering all his comorbidities patient had to be placed back on mechanical positive pressure ventilation Critical illness polyneuropathy Metabolic encephalopathy Malfunctioning of the J-tube, hence the patient is receiving TPN and surgery is addressing the J-tube itself Bowel perforation, diagnosed on 02/03/2024, surgery on the case is not recommending surgical intervention because of high mortality/morbidity, this issue was discussed with surgery again today in the presence of family members, and clearly surgery is not and will not plan any surgical intervention on his abdomen mostly because of high risk and high mortality. Recommendation: Continue ventilatory support, intermittent trials of weaning on a daily basis utilizing pressure support/CPAP and if tolerated trach collar however considering his abdominal findings and his overall condition it would be almost impossible to wean successfully for a long period of time from mechanical ventilation. Continue antibiotics including tobramycin and Zosyn Continue Precedex for now and use propofol if felt necessary Continue nutritional support/TPN continue chest tube/pigtail catheter to suction, continues to have air leak not ready to be removed Continue GI and DVT prophylaxis Remains critically ill, prognosis is extremely poor, family members were made aware of this today when we had a meeting [facility] with infectious disease[facility], and myself Critical care time is over 30, Will continue to follow Time with Patient: Greater than 30
--- NOTE | 2024-02-07 16:24 | P.PN ---
Progress Note - Text Progress Note Date: 02/07/24 Chief Complaint: On the ventilator This is a 73-year-old patient, follows with Dr. Patricia Deal. Patient was seen this morning in the ICU. Patient's and daughter at the bedside. History obtained predominantly by the . Patient been having trouble with his stomach symptoms for close to 8 months. Patient underwent EGD by Dr. Sahara Cheng yesterday. Patient was found to have ulcerated around the antrum and obstruction to the pylorus. A lot of retained food was found. Patient aspirated. Had to be intubated and brought to the ICU. On a Levophed drip. FiO2 50 and a PEEP of 6. Patient had been losing weight lost about 25 pounds. Previously has a history of mitral valve prolapse. November 13: ICU. Patient remains on Precedex drip and propofol drip. Did not do well attempted extubation yesterday. Patient been off Levophed. NG tube to suction. Spoke to patient's and son at the bedside. Biopsy results awaited. Hemoglobin dropped to 6.9 this morning. Get a unit of blood. November 14: ICU. Up in a chair. Extubated yesterday. NG tube to suction. at the bedside. 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 Oncology was consulted. They have ordered a port. Results discussed with Dr. Sahara Cheng. General surgery was consulted for J-tube placement. Discussed with at the bedside. Patient getting IV fluids, IV Zosyn,. Patient has been on IV amiodarone for A-fib-back in sinus rhythm. Multiple PACs. Did receive unit of blood yesterday. Also IV ferric gluconate. November 15: ICU. Patient earlier today underwent jejunostomy tube placement and a port placement. Patient awake. Answering questions. NG tube to suction present. Updated patient's . Patient remains on IV amiodarone and IV Zosyn. November 16: ICU. Up in the chair. NG tube present but not to suction. Trickle feeding through the jejunostomy tube should be started today. Dietitian has been on board. IV Zosyn to continue. Patient's and his sister at the bedside. Discussed. Also spoke with Dr. Serna. Given patient has no other predisposing cardiac factors for the A-fib except acute illness. His LV function is normal. Left atrium is normal. He has already been loaded with IV amiodarone. Will switch him to oral Lopressor 12.5 twice daily. Hence will DC amiodarone. Patient yesterday had wheezing was put on bronchodilators steroids per pulmonary. November 17: Propped up in bed. NG tube was discontinued. Sinus rhythm. Remains NPO. Getting G-tube feeding at 40 cc an hour. Dietitian following. Get arrangements done for DC home tomorrow including tube feeding. Increase activity discussed with patient and elder daughter at the bedside. Still requiring oxygen. Incentive spirometry. November 18: Patient up in recliner. Earlier today spoke to addiction social worker David. Informed patient is rather weak and will be going to the [facility] BEDS AT THE [facility]. Looking at authorization. Denae came to the room and spoke to patient his and his daughter. They are very keen to take the patient home as 3 daughters all nurses and they will take care of him at home. Patient earlier today to abdominal cramping and some loose stools.'s tube feeding was held. Told the nurse to start back at the rate of 40 cc an hour. He was before the getting it at 55 cc an hour. Incentive spirometry was again emphasized. Patient remains on 4 L of oxygen. November 19: I saw the patient this morning. Hence I am in the evening. Morning was sitting with his sons. Has some edema. Lungs had crackles I gave him 40 mg of Lasix. He did make good urine. Tube feeding was held from the p revious evening of because of abdominal cramping. Acute abdominal series showed nonspecific bowel gas pattern and SBO to be ruled out. Family and patient was updated. Told him discharge will depend on day by day. Later this afternoon CT scanAnd abdomen pelvis done. Showed small bowel to be 3 point centimeter dilated. Some anasarca. Gastric findings. Gallstones. Later spoke to Dr. Irby from general surgery. They will further review and decide about further plan of action. Will give further dose of IV Lasix because of fluid overload from likely hypoalbuminemia and IV fluids previously received. Patient may take his pills by mouth. Total time spent today about 1 hour with over 40 minutes of discussion. Patient did state his breathing is better after Lasix this morning. November 20: Saw the patient this morning. was present. Patient received 2 more doses of Lasix. Diuresed well. Breathing much better. Lungs are sounding better. Discussed with Dr. Zepeda other surgeon. He is taking 3 cc out of the balloon and the gastrostomy tube. Started trickle feeding at 5 cc an hour. Will see how this does. Later in the day ran into the and the daughter again. Did update them on the same. Dilaudid was discontinued yesterday but morphine was ordered by surgery for patient having pain. Concerns about GI issues with that we will DC the morphine. As family does not want the same. November 21: Patient reclining bed. Tired. Several family members at the bedside. Including his and eldest daughter. Patient started on trickle feed yesterday at 5 cc an hour. This morning he has been on 10 cc an hour. Still having some loose stools. C. difficile was ordered. Patient on 2 L of nasal cannula. Has diuresed well. Will give an additional dose of Lasix today. If C. difficile is negative and the diarrhea is from the tube feedings we may have to use a fecal management system to keep him comfortable. Otherwise patient remains NPO. Dietitian is following the patient. Care was discussed length with patient the and daughter at the bedside. Questions answered. Liquid Tylenol has been added for abdominal pain. Avoid narcotics. Elevated white count likely from Solu-Medrol 11/23/2023--patient was feeling better today. Multiple family member at bedside. No issues overnight. Normal saline at 10 cc an hour, tube feeding at 20 cc an hour, remains on Zosyn, on 3 L oxygen. Afebrile. Heart rate 62, respiratory rate 16, blood pressure 114/67, saturating 91% on 3 L. WBCs 14.5, 9.7 hemoglobin. Platelet 242. BMP is unremarkable. Pulmonary and general surgery following. General surgery recommended to continue tube feeds at 20 cc/h. 11/24/2023--patient reported significant abdominal discomfort, also noted to have leak around G-tube. General surgery is following, evaluated the patient at bedside, adjusted tube feeds. Also reported having diarrhea, on 2 L oxygen, went up to 5 L. Blood pressure was low, 500 mL fluid bolus with close monitoring of respiratory status ordered. Currently on DuoNebs, Solu-Medrol, will continue Zosyn. Chest x-ray showed a left lower lobe infiltrate. Abdominal x-ray showed multiple air-fluid levels. CT abdomen showed multiple dilated small bowel loops, consistent with obstruction, pneumoperitoneum, cholelithiasis and ascites. WBCs 14.1, platelet 255, hemoglobin 8.9. NG tube in place. Family at bedside. patient transferred to SICU for close monitoring. 11/25/23--patient is currently in the ICU, required Levophed overnight due to low blood pressure, low urine output with creatinine trending up. Nephrology following. Serials Librarian also following. Patient remains n.p.o., NG tube in place, following NG tube insertion patient had total of 2 L output, J-tube was draining approximately 200 cc over last 8 hours, continues to have abdominal pain and abdominal tenderness. Patient on IV fluids. Currently on 4 L oxygen. WBCs 8.2, hemoglobin 12.3, platelet 188. Chest x-ray earlier today showed right sided port and a stable left lung airspace disease, NG tube in place. Patient currently on Zosyn, on IV Dilaudid for pain control, on IV Solu-Medrol. General surgery planning for OR today, started on TPN. 11/26/23--patient was seen and examined today. Patient is currently sedated, intubated on mechanical ventilation. Family at bedside. Patient underwent ex lap, abdominal washout, small bowel resection with new feeding jejunostomy tube placement yesterday, small bowel was noted to be perforated with significant contamination of abdominal cavity. Patient is currently on vancomycin and Zosyn. Creatinine went up to 2.85, nephrology following, recommended to continue IV fluids, avoid nephrotoxin Preserved EF on echocardiogram.. Patient currently on Levophed, vasopressin in the ICU for close monitoring. Patient is afebrile, heart rate 122, blood pressure 129/76, currently on mechanical ventilation, sedated. November 26: ICU. Intubated. FiO2 60 and a PEEP of 5. Drips include IV amiodarone. Heart rate was up early did get fired microgram of IV digoxin and 2.5 mg of IV Lopressor. Did drop her blood pressure bit. Urine output was low. Received 80 mg of IV Lasix. Ahmet to 150 cc. Other drips include IV propofol, vasopressin, Levophed. TPN was started yesterday. Antibiotics include IV Zosyn and vancomycin. Patient has a J-tube to drainage to gravity. Spoke to patient's younger daughter and at the bedside. Prognosis guarded. Continue current treatment plan. Chest x-ray shows right lower lobe consolidation. Small pleural effusion. November 27: ICU. Intubated. FiO2 55 and a PEEP of 5. Antibiotics include IV vancomycin. Drips include Levophed at a small dose, IV vasopressin, propofol, amiodarone. Patient converted to sinus rhythm this morning. Getting TPN and normal saline at 75 cc an hour. Urine output about 25 cc an hour. RAYA drain put out about 260 cc last 12 hours that is last packing line operator. NG tube with bilious output. And also GI J-tube output to gravity. Spoke to patient's and daughter at the bedside. They understand patient still not out of the kee. Platelets have dropped-therefore probably Zosyn stopped. November 28: ICU. Intubated. FiO2 55 and a PEEP of 5. Patient is in sinus rhythm. Seen this morning. Due for dialysis catheter this afternoon. Urine output about 15 to 20 cc an hour. Patient is on IV Lasix 80 mg every 12. Saline is KVO. Drips include IV propofol vasopressin. Patient having significant output through the RAYA drain and the jejunostomy tube to drainage. Creatinine had been getting worse. Patient's at the bedside. Understands patient's remains critically ill. Hemoglobin is down to 7. Given that patient's pain hypotensive, and on vasopressin we will give a unit of blood with dialysis. Getting TPN antibiotic changed to IV meropenem November 29: ICU. Intubated. FiO2 55 and a PEEP of 5. Remains in sinus rhythm. Getting TPN. Dialyzed yesterday and this morning. About 1000 cc removed. Urine output about 50 cc an hour. Patient is on IV propofol. Off vasopressin. Still having significant output through the RAYA drain and jejunostomy tube. Patient received a second unit of blood yesterday. Patient's and daughter at the bedside. I did discuss guarded prognosis. Did asked them to revisit CODE STATUS.. Getting IV meropenem. November 30: ICU. Intubated. Did get a sedation holiday t today. Back on propofol. Getting TPN. Still getting IV Lasix. Fair urine output. Jejunostomy tube in last 8 hours was about 30 cc output. RAYA drain in the 8 hours had about 180 cc output. Telemetry shows sinus rhythm. NG tube has low intermittent suction with negative output. On the vent with FiO2 40 and a PEEP of 5. No hemodialysis today. Discussed with the and eldest daughter at the bedside. IV meropenem-patient's sputum had grown Citrobacter freundii and Pseudomonas aeruginosa. December 01: ICU. Intubated. Jejunostomy tube to gravity. Only 10 cc output in last 24 hours. RAYA drain. About 190 cc last 6 hours. Nasogastric tube to low intermittent suction. Minimal output. Patient is on a small dose of propofol 5 mics. Telemetry shows sinus rhythm. Patient started on small dose of Cleviprex this morning. Blood pressure. Getting TPN. FiO2 35 and PEEP of 5. Discussed with the at the bedside. Hemodialysis today December 02: ICU. Patient remains intubated. FiO2 35 PEEP of 5. Patient is on IV propofol. IV Cleviprex was discontinued yesterday. Also remains on TPN. Telemetry shows sinus rhythm. NG tube is good no output. Still significant output through the RAYA drain. Jejunostomy tube has minimal output. Patient had hemodialysis today 2 L of fluid was removed. Oral half liters yesterday. Patient getting a sedation holiday. General Surgery started the patient on trickle feeding at 10 cc an hour. I did speak to patient's at the bedside. Prognosis remains guarded but there is some improvement. December 03: ICU. Intubated. FiO2 35 PEEP of 5. Drips include IV propofol and Precedex. Getting TPN. Telemetry shows sinus rhythm. Remains on IV Lasix 80 mg twice a day. IV meropenem. Because patient gets easily agitated when transitioning off propofol he has been switched over to Precedex. For hemodialysis today. December 04: ICU. Intubated. FiO2 35 and a PEEP of 5. Patient been taken off propofol is on Precedex. Telemetry sinus rhythm. J-tube with minimal output. RAYA drain with decreased output. NG tube to suction minimal output. Family wanted to hold off trickle feeding until cleared by oncology. Which he did today. Trickle feeding will be started today. Spoke to patient's and one of the daughters at the bedside. Dr. Russ is spoken to the earlier this point they want to do further tracheostomy tube. October 4: ICU. Intubated. FiO2 35 PEEP of 5. Patient remains on Precedex and PPN. Patient's dialysis catheter was not functioning is getting another [address] Bobby this afternoon. Remains on IV meropenem. Has a RAYA drain in the jejunostomy tube to gravity. NG tube to low intermittent suction. No family at the bedside. December 06: ICU. Intubated. FiO2 35 PEEP of 5. RAYA drain putting out about approximately 120 cc per shift. Patient on IV Precedex. FiO2 35 PEEP of 5. Telemetry-sinus rhythm. Patient occasionally been put on small dose of Levophed specially for hemodialysis getting it today. Also started on midodrine for low blood pressure. Tolerating tube feeding at 10 cc an hour. Also had a bowel movement. Mentation has not improved. Even with sedation holiday. Neurology consulted. CT brain shows no acute process. December 07: ICU. Intubated. FiO2 35 PEEP of 5. Telemetry-sinus rhythm. NG tube to suction low intermittent minimal output. Getting TPN. Tube feeding at 20 cc an hour. RAYA drain averaging over 100 cc per shift. Remains on Precedex. EEG was done today. Discussed with at the bedside. Family is currently not inclined for tracheostomy tube today. Day 13 of being intubated December 08: ICU. Intubated. FiO2 35 PEEP of 5. Patient is put on back on propofol per appliance fixer Dr. JIMENEZ. EEG did show some potential for spikes was put on Keppra by neurology. Telemetry shows sinus rhythm. NG tube to suction with no output. Tube feeding was put on hold because of questionable discharge on the site. Being restarted today. RAYA drain is 150 cc last 12-hour shift. Patient does open eyes. Family has decided to proceed with tracheostomy and surgery has been consulted for the same. Spoke to the at the bedside. For hemodialysis today. December 09: ICU. Intubated FiO2 35 PEEP of 5. Patient seen this morning. Pending tracheostomy placement this afternoon. Remains NPO. G-tube feeding was held overnight. RAYA drain putting out about 100 cc per shift. Received a unit of blood for hemoglobin of 6.6. On 25 mics of propofol. Getting TPN and meropenem. Spoke to the at the bedside. Patient became hypotensive with dialysis yesterday. Levophed had to be given. Only 800 cc were removed yesterday. No hemodialysis today. December 10: ICU . FiO2 35, PEEP 5. Tracheostomy was done yesterday by Dr. Ewing. G-tube feeding was started today at 10 cc an hour. Dietitian following. RAYA drain 12-hour shift overnight put out about 30 cc. Patient hemodialysis today about 1 L removed. Patient has a sacral stage II decub with a dressing. On propofol 20 mics. Spoke to at the bedside. TPN. Meropenem was discontinued yesterday. December 11: ICU. FiO2 35 PEEP of 5. Tracheostomy. NG tube was discontinued. No hemodialysis today. Telemetry shows sinus rhythm. J-tube feeding at 40 cc an hour. TPN was discontinued. Patient has been off propofol also. PICC line in place. Patient had a EEG done today. Spoke to patient's elder daughter at the bedside. May open eyes occasionally. Not really following commands December 12: 73-year-old white male with history of chronic abdominal pain for the last 8 months has been treated with Protonix 40 mg daily for the last 3 months with no improvement. Patient had a 22 pound weight loss in the last [address] of the abdomen and pelvis 3 weeks ago showed thickening of the antral wall with pathological adenopathy posterior to the stomach suspicious of neoplasm. Today the patient underwent elective upper endoscopy to evaluate further, patient received IV sedation by anesthesia endoscope was inserted into the mouth, esophagus was intubated without any difficulty there was evidence of large amount of liquid and solid food noted in the stomach suggestive of gastric outlet obstruction. Scope could not be advanced through the pylorus, however in the prepyloric area there was a large superficial ulceration identified with multiple biopsies were done from this area. The body cardia and fundus could not adequately visualize because of large amount of retained food in the s tomach. Scope was withdrawn back to the stomach and upon careful examination the mucosa of the antrum body and cardia as well as the fundus appeared normal. Procedure was being performed and biopsies were done patient threw up and subsequently became hypoxic there was clearly evidence of witnessed aspiration anesthesia intubated the patient, procedure was terminated, and the patient was transferred to the ICU, this consult was initiated. Patient is now on assist- control rate of 20 tidal volume 500 FiO2 70% PEEP of 10 ABG is pending, earlier ABG showed profound hypoxia patient is on propofol at 50 mcg/kg/min, next ABG is pending. Chest x-ray showed chronic changes without evidence of acute pulmonary disease. 12/14/2023 Patient remains in the ICU, generally weak Patient s/p tracheostomy G-tube in place Patient still has fever and mild tachycardia but tachycardia is improving, leukocytosis improving as well. Hemoglobin 8.1. Creatinine 3.0 and nephrology team on the case. He has mild transaminitis. He was getting Zosyn which is held now, nowCalcitonin is pending 12/14 Patient shon in the ICU, he is still encephalopathic and does not follow command. Neurology service following closely. He is status post tracheostomy. Also J-tube His abdomen looks soft and on exam he has mild coarse secretions. Has a Abarca catheter with clear urine His pro- Calcitonin is still high but trending down 3.0 down to 1.9 No fever this morning WBC slightly less at 16.3 Patient currently off antibiotic He is getting steroids IV Solu-Medrol which might contribute to his leukocytosis. Also he is on IV Keppra by neurologist 12/14 Patient remains confused in the ICU calm, he had a good night per family member and staff. Tracheostomy in place Patient has occasional coughing spells, patient also developed some partial wound dehiscence in his abdomen, surgery team are aware and are going to evaluate the patient Patient also has positive blood culture from 12/13: Gram-positive cocci in clusters. Patient received one-time dose of IV vancomycin. Patient also had fever 2 days ago, leukocytosis and total elevated pro- Calcitonin. Therefore we are going to consult infectious disease team. As his antibiotic Zosyn was stopped few days ago. Currently patient KVO He has good urine output December 16: ICU. Trach. Congested. Requiring suctioning. No hemodialysis today. Getting G-tube feeding at 50 cc an hour. FiO2 30 and a PEEP of 5. On IV Precedex. Eyes open. Does follow commands. Weakness in the limbs. Spoke to at the bedside. Sputum positive for Klebsiella oxytoca and Pseudomonas aeruginosa. December 17: ICU. On trach. Currently cough with increased secretions requiring suctioning. Adding scopolamine patch. Very much clear secretion. CT scan is showing right upper lobe lung abscess. G-tube feeding at 50 cc an hour. Hemodialysis today. RAYA drain putting out about 140 cc a shift. Serous. Has been midline incision wound dehiscence. Wound VAC was placed on it. Stage II ulcer. Patient is on Precedex drip 0.15 mics. Urine output is good about 6200 cc an hour. Spoke to the at the bedside. Patient currently not stable for transfer to LTAC. No limb movements. PT OT on the case. otherwise awake does follow simple commands by face December 18: ICU. Patient seen this afternoon. Because of pain getting IV Dilaudid. No nasal cannula on room air. Does move about his head. Telemetry shows sinus rhythm. FiO2 30 and a PEEP of 5. Patient started on scopolamine patch yesterday has decreased secretions today. Good urine output. Tube feeding at 60 cc an hour. Wound VAC on incisional would be high since in place. RAYA drain continues to make output. No hemodialysis today December 19: ICU. Patient was seen earlier today. FiO2 30 and a PEEP of 5. Sinus rhythm. Awake. Does follow with eyes. Tube feeding got obstructed tube feedings held for now. Increasing oozing from the incision drainage site. at the bedside. Wound VAC remains in place. Good urine output. Dialysis held today. December 20: ICU. Per nephrology no dialysis today. 1 L fluid bolus given. J- tube was replaced over the wire by Dr. Ewing from surgery. On Precedex 0.6 mcg. FiO2 30 and a PEEP of 5 on the vent. RAYA drain putting out of around 100 cc per shift. at the bedside. Drainage through the abdominal incision wound. CT scan abdomen showed tube placement in the small bowel. Stable large right lower quadrant mass with a fluid level. December 21: ICU. No dialysis today. Patient started on trickle feeding through the J-tube yesterday. He started leaking around the J-tube site. Tube feeding was held. Dressings were placed. Wound VAC remains on the incision. Still having output through the RAYA drain. Patient remains on Precedex 0.4 mcg. FiO2 30 and a PEEP of 5. Sinus rhythm. at the bedside. December 22: ICU. Patient was seen this morning today by me. No dialysis today. Patient's and daughter at the bedside. FiO2 30 and a PEEP of 5. Sinus rhythm. Still having significant secretions through the tracheostomy tube. On Precedex 0.4 mcg. Getting D5W IV fluids. Tube feeding remains to be on hold since yesterday. Still output of RAYA drain. Awaiting input from surgery. Discussed with the and daughter. December 23: ICU. Saw the patient this afternoon. Because of good output of urine dialysis has been discontinued. Telemetry shows sinus rhythm. FiO2 30 and a PEEP of 5. RAYA output has been around 8200 cc an hour. Good urine output. Patient does have very slight movement of the limbs. Wound VAC is putting out about 20 cc per shift. Yesterday when trickle feeding was started patient's J- tube drainage also started leaking around the insertion site. Tube feeding was held. Patient remains on IV Zosyn and Precedex at 0.3 mcg. I had a very lengthy discussion with patient's daughter and at the bedside overall guarded prognosis. Later surgery spoke to the family, and then the nurse called me that family was wanting transferred to [facility]. I spoke to Dr. Irby. They felt they could not offer anything more at this point. I did call the [facility] transfer pipe or steam fitter furnace installer. Gave them the reason for transfer. Later in the ICU nurse informed me through [employer] that [facility] had declined the transfer. Total time spent today about 50 minutes with over 30 minutes of discussion. December 24: ICU. Patient is doing not too well. Sinus rhythm. Drips include norepinephrine and IV propofol. Surgery did put 2 stitches around the J-tube insertion site. Started on TPN today. FiO2 30 PEEP of 5. Patient became hypothermic put on a Manjit hugger. Also hypoglycemic. Decreased urine output. IV fluids increased. Patient's son was at the bedside. I did speak to patient's eldest daughter outside in the waiting room. Did tell the patient doing very poorly. I did try to call the on the phone number she has gone home. Started an IV antifungal today. December 26, 2023 73-year-old white male with history of chronic abdominal pain for the last 8 months has been treated with Protonix 40 mg daily for the last 3 months with no improvement. Patient had a 22 pound weight loss in the last [address] of the abdomen and pelvis 3 weeks ago showed thickening of the antral wall with pathological adenopathy posterior to the stomach suspicious of neoplasm. Today the patient underwent elective upper endoscopy to evaluate further, patient received IV sedation by anesthesia endoscope was inserted into the mouth, esophagus was intubated without any difficulty there was evidence of large amount of liquid and solid food noted in the stomach suggestive of gastric outlet obstruction. Scope could not be advanced through the pylorus, however in the prepyloric area there was a large superficial ulceration identified with multiple biopsies were done from this area. The body cardia and fundus could not adequately visualize because of large amount of retained food in the stomach. Scope was withdrawn back to the stomach and upon careful examination the mucosa of the antrum body and cardia as well as the fundus appeared normal. Procedure was being performed and biopsies were done patient threw up and subsequently became hypoxic there was clearly evidence of witnessed aspiration anesthesia intubated the patient, procedure was terminated, and the patient was transferred to the ICU, this consult was initiated. Patient is now on assist- control rate of 20 tidal volume 500 FiO2 70% PEEP of 10 ABG is pending, earlier ABG showed profound hypoxia patient is on propofol at 50 mcg/kg/min, next ABG is pending. Chest x-ray showed chronic changes without evidence of acute pulmonary disease. 12/27/2023 Patient is seen and evaluated with family at bedside; remains in the ICU intubated and mechanically ventilated. - ABG showed a pO2 of 99 pCO2 31 pH of 7.44. -- Remains on Eraxis daptomycin and Zosyn patient is intermittently requiring Dilaudid, Ativan does not seem to help his agitation and restlessness. -- Continues to have leakage around the jejunostomy tube, and patient is undergoing the J-tube exchange today. Family is at bedside, seems to be quite anxious about his overall condition, and I explained to the that we are doing the best we can considering his critical illness situation and critical illness polyneuropathy. Patient is profoundly weak, and weaning the patient from mechanical ventilation is almost impossible. At least not at this point yet WBC count is 10.9 hemoglobin is 8.1 basic metabolic profile is normal BUN is 46 creatinine 1.90 patient has been off hemodialysis since the . Chest x- ray continues to show stable findings with right upper lobe opacity and right lower lobe opacity and possibly a small right-sided pleural effusion ----Continue ventilatory support, now on IMV mode rate of 16 with pressure support of 14 Continue Precedex and use Dilaudid 0.5 mg every 2-3 hours as needed. Nutritional support patient is now on TPN, Possible J-tube changed today for J- tube malfunction Continue antibiotics including daptomycin and Zosyn, Eraxis was added by infectious disease 12/28/2023 the patient is seen and evaluated in room at bedside; continues to be afebrile, the patient is on the ventilator through the trach FiO2 is currently stable at 30% no significant pleural effusion clinically patient on requiring any pressor support still having drainage around his jejunostomy tube patient dialysis catheter has been discontinued. Patient white count normalized to 7.6, creatinine is 1.51 patient with pneumonia with a sputum showing Citrobacter and Pseudomonas aeruginosa, the patient sputum repeat is still growing Citrobacter and Pseudomonas sensitive to the Pseudomonas is pending continue with Zosyn -patient did have a positive blood culture with staph epi that was oxacillin resistant as the patient did have a PICC line and the dialysis catheter he is on daptomycin repeat blood culture currently growing oxacillin sensitive staph epi, the patient dialysis catheter has been discontinued Has been sent for the culture -patient also have significant excoriation around his jejunostomy tube site which is still leaking Eraxis was added which will be continued as the patient fever pattern has improved and the patient white count has normalized once again discussed with the nursing staff to apply Triad cream which was discussed yesterday but not applied and monitor clinical course closely 12/29/2023 Patient is seen and evaluated with family members at bedside; remains intubated and mechanically ventilated -- ABG showed a pO2 of 105 pCO2 31 pH of 7.45. Remains on Precedex; multiple antibiotics and antifungal including Eraxis daptomycin and Zosyn. -- chest x-ray is showing improvement in his right upper lobe airspace disease/pulmonary abscess. Right lower lobe seems about the same with chronic opacity and possibly some small right-sided pleural effusion. --Family is at bedside, patient is arousable but does not follow any instructions. Gets extremely restless and agitated easily hence patient is receiving Dilaudid which seems to be working much better for this patient than benzodiazepines --possibly transfer the patient to a select care specialty. 12/30/2023 Evaluated in follow-up in the intensive care unit. He remains on the mechanical ventilator. Status post tracheostomy. There has been a decrease in the amount of leakage around the J-tube site he continues on a gravity flow. TPN is infusing tube feedings remain on hold at this time. No bowel movement reported for the last 5 days. X-ray today reveals extensive pleural parenchymal opacities throughout the right with at least a moderate pleural effusion. Mild patchy densities left mid and lower lung are also similar. Blood work reveals a white blood cell count 11.5, hemoglobin 8.1, platelet count of 78, sodium 142, potassium 4.2, BUN of 42, creatinine of 1.22, Phos of 2.3, magnesium 1.9. Patient continues on IV anidulafungin IV Zerbaxa IV daptomycin. Patient is currently sedated with propofol and also Precedex which is currently on hold at this time. December 31, 2023: ICU. Patient continues to do poorly. On propofol 35 mics. Also getting IV Dilaudid and IV Ativan.. Telemetry shows sinus rhythm. J-tube feeding has been discontinued. Significant output through the Abarca bag and around the G-tube site. Patient also putting out through the RAYA drain on the right side. Getting TPN and lipids. Patient is antimicrobial include iv aniedulefungin, IV ceftolozane/tazobactam, IV daptomycin Advance care planning [October 31, 2023] I met with patient's at the bedside. Went through in detail with patient is overall very poor clinical status. Chances of any meaningful recovery next to minimal. I also did mention that patient in my opinion was not stable to go to chronic ventilator setting. I suggested comfort care/hospice. I did not feel and why all honesty that patient is benefiting any further from the treatment we are giving him in fact causing probably more suffering. I also spoke to patient's daughter outside in the waiting room. Total time spent about 50 minutes with over 30 minutes of discussion. Later I called Dr. Luther JIMENEZ the appliance fixer after he received a text that family was expressing that some physician expressed he was doing better and giving hope. I spoke to nurse Lemos in the evening and she and Dr. JIMENEZ did go and talk to patient's family at the bedside later. January 01, 2024: ICU. FiO2 30 and a PEEP of 5. Continues to have increased drainage at the G-tube site. Wound VAC in place over the incision. RAYA drain continues to put out excretions. Good urine output. Drips include IV propofol at 20 mics, also getting IV Ativan and Dilaudid. Patient also keeping getting TPN lipids. Spoke to the patient's at the bedside. No further questions. I did speak to Dr. Irby from general surgery. Hence it is both our impression again that changing the tube will not make any difference to the bigger picture. And probably futile. Dr. Irby will be speaking to the family today. David from addiction social worker did ask about of family meeting. I did reiterate that I spoken at length to the a few times and also the daughter. Dr. Jimenez also spoke to the and Dr. Irby will be speaking with the today. Prognosis remains to be very poor. I did tell the in my opinion probably the patient is not r a candidate for long-term facility. Will appliance fixer Dr. Jimenez determine if the patient is a candidate for long-term chronic ventilator facility. January 02, 2024: ICU. FiO2 30 PEEP of 5. Telemetry sinus rhythm. Drips include propofol at 20 mics. Patient getting TPN lipids. Receiving 1 unit of packed red blood cell. Patient was having a breakdown around the tracheostomy stoma site. With a cuff leak. G-tube site is continues to have increasing output. Wound VAC in place. RAYA drains also having increasing output. Patient sister and daughter from [place] from out of town. Earlier they spoke at length with Dr. alford from general surgery. Prognosis remains poor. January 03, 2024: ICU. FiO2 30 PEEP of 5. On propofol. 50 mics. Getting TPN lipids. Sinus rhythm. Wound VAC in place. Drainage around the j-tube site. RAYA drain continues to drain. Patient somewhat sedated. at the bedside. Later addiction social worker David inform me that the surgical team Dr. Irby has suggested possible you have [facility], to which family is trying to obtain transferred to. Per Dr. Jimenez note patient has been decline by long-term care twice. Prognosis remains poor. at the bedside. Had no questions. Brother Nathan is present. January 04, 2024: ICU. FiO2 30 PEEP of 5. Propofol was held this morning. Getting TPN lipids. Sinus rhythm. Wound VAC remains in place. Continues to have drainage around the J-tube. RAYA drain continues to have output. at the bedside. She had no questions. Antibiotics in place. January 05, 2024: ICU. FiO2 30 PEEP of 5. Audibly sounding congested. Getting TPN lipids. Sinus rhythm. Wound VAC in place. Drainage around J-tube site. RAYA output continues. No family at bedside. Getting antibiotics. Lethargic January 06, 2024: ICU. FiO2 30 PEEP of 5. Patient is been off propofol since yesterday. Does move his head about. Try to open his eyes sometimes. Sinus rhythm. Blood pressure is running high yesterday. Started on Cleviprex. Hydralazine is being added. Continue to get TPN lipids. J-tube site remains excoriated. Wound VAC in place. RAYA output about 40 to 50 cc is a 12-hour shift. Patient elder daughter at the bedside. Eraxis was discontinued on January 02. Daptomycin is being discontinued by ID. Continue ceftolo'szone. CT abdomen pelvis done today: 3.1 cm organized fluid collection within the rectovesicular space concerning for abscess. No change in right upper lung 4.9 cm fluid collection with a fluid level. For possible pulmonary abscess. Moderate size right lung base multiloculated hydropneumothorax possibly abscess. Additional areas of air bronchograms. January 07, 2024: ICU. FiO2 30 PEEP of 5. Patient was taken down for pigtail drainage of the right lung abscess. About 200 cc of pus was obtained. Nurse informed me when they told him about for the procedure a lot of pus gushed out from the tracheostomy site. Dr. Love at the bedside did a bronchoscopy. Some pus was aspirated. No obvious fistula was noted. Patient is being back on Cleviprex drip. TPN lipids. January 08, 2024: ICU. Patient was having severe bouts of coughing. Unable to maintain ventilation. Patient was put on Nimbex drip and propofol drip. TPN lipids continue. Has a right chest wall pigtail catheter 90 cc output in 12- hour shift. Drainage from around the J-tube site. RAYA drain continues Ahmet to have an output. Abdominal wound is high since with the wound VAC in place. Patient sedated. January 09, 2024: ICU. Patient is off propofol and Cleviprex. Does open eyes. RAYA drain. About 40 cc last 24 hours. J-tube site continues to have increased output. Requiring dressing change every so often. Wound VAC in place. Patient getting Dilaudid and Ativan. Telemetry shows sinus rhythm. 40 cc out of the pigtail drainage. Patient started on ciprofloxacin and tobramycin. Remains on TPN and lipids. Patient's eldest daughter and at the bedside. No new questions. January 10, 2024: ICU. Overnight patient had become asynchronous. Had to be put on Precedex drip. Hemoglobin dropped down to 6.6. Monitor blood ordered. RAYA output about 100 cc last 24 hours. Wound VAC remains in place. TPN lipid continues. Patient also has a leak in the right pigtail catheter. Sinus rhythm. Continues to have increased secretion at the G-tube site. Ventilator FiO2 30 and a PEEP of 5. at the bedside. Had no further questions. January 11, 2024: ICU. Patient remains on IV Precedex. TPN.'s RAYA output over 30 cc last 24 hours. Wound VAC remains in place. Sinus rhythm. FiO2 30 PEEP of 5. Pigtail with very little output. Spoke to Dr. Love who only spoke to the patient's at length. Gnosis poor. When I walked in patient's 2 daughters and the present. is very tearful crying hugging the patient. The daughter had no further questions January 12, 2024 Ahmet: ICU. Continues on IV Precedex. Getting TPN lipids. Wound VAC in place. Sensitive. FiO2 30 and a PEEP of 5. Patient's at the bedside. Had no questions. January 13, 2024: ICU. FiO2 30 PEEP of 5. Remains on Precedex 0.8 mg. Eyes open. Sometimes does track with head. Not moving limbs. Some decrease in output from the G-tube site. Wound VAC putting out about 100 cc every 12 hours. RAYA drain about 100 cc every [address] Russ met with the family earlier today. Patient's been made DNR. Telemetry sinus rhythm. Patient's and daughter at bedside. They have no questions January 14, 2024: ICU. FiO2 30. PEEP of 5. Patient is has eyes open and tracking. Urine output about 100 cc an hour. NG site output looks like gastric contents. RAYA site about 50 cc in the last 12 hours. Telemetry sinus rhythm. and daughter have asked for hospice consultation for informational visit. They want to use [facility]. I sat with them and the nurse and a full expression of the hospice involved involved. Several questions answered. Daughter does express that she would like to take the patient home. The other sibling will be coming on from [place] on Saturday. They want to hold on at least until then. January 15, 2024: ICU. FiO2 30 and a PEEP of 5. Getting CPAP today. Asynchronous better. J-tube site continues to have increase secretions. Sinus rhythm. Awake. Does move his head possibly to command. Remains on Precedex. Getting Dilaudid. Fair urine output. Has a air leak in the pigtail. Minimal output through the chest tube. RAYA drain continues to have an output. at the bedside. January 16, 2024: ICU. On the ventilator FiO2 30 and a PEEP of 5. Pressure support mode. Wound VAC remains in place. J-tube site continues to have output. RAYA drain putting out output. Remains on pressors Precedex and getting Dilaudid. Antibiotics per ID. Patient being planned to go home tomorrow with home hospice. at the bedside. Had no further questions. Being followed by addiction social worker David and home hospice team from [facility] The plan for tomorrow currently is as follows: -Hospice arranging for transport with portable ventilator, to home with family -Antibiotics as discussed with ID will be discontinued -Wound VAC to be removed prior to discharge per surgery -RAYA drain to remain in place with dressing changes at the J-tube site. Dressing changes at the incision site per surgery. -TPN lipids will be discontinued prior to discharge -Patient to be taken off Precedex by r appliance fixer January 21, 2024: ICU. Ventilator FiO2 30 and a PEEP of 5. Precedex drip. Sinus rhythm. Does wake up and follow commands. Weak in the limbs. Very little output through the RAYA drain. Wound VAC in place. Requiring Dilaudid for pain control close to every 2 hours. Over the weekend patient and family dec ided not for hospice. Patient is now full code instructions. Looking at long- term placement. Patient on tobramycin and ciprofloxacin and Diflucan per ID. Patient and daughter at the bedside.. Physical therapy in the room for passive movements. Family being educated. Since yesterday patient has been on pressure support./CPAP. Getting TPN lipids. January 22, 2024: ICU. Patient was on CPAP this morning. Plan was to take him to trach only this afternoon. Getting IV Precedex. Awake. Moves his head to command. Was able to move his right arm. Wound VAC remains in place. Right c hest tube/pigtail catheter in place. Some air leak. Minimal output from the right RAYA drain. Secretions persist through the left J-tube site. at the bedside. Spoke to the addiction social worker David. Looking into long-term placement. 01/23/24 Patient is evaluated in the ICU at the bedside. Feels anxious today, precedex is being weaned. He is awake alert. He is edematous. Abdominal wound vac in place. Right chest tube/pigtail in place. 55 ML of drainage overnight. Right sided RAYA drain. J tube in place. On TPN. He is pending approval for [facility] vs. [facility]. Blood work today reveals a sodium level of 131. Continues on IV Ciprofloxacin/ IV fluconazole. 01/24/2024 Patient remains in the intensive care unit as remains at the bedside. He was weaned off the Precedex today did receive a dose of Ativan this morning however his mood has much improved. Abdominal wound VAC in place with evidence of purulent drainage in the canister. He has had 15 mL of drainage overnight from the right sided chest tube. J-tube remains in place. He continues on TPN. He continues on IV ciprofloxacin and IV fluconazole with plans for repeat abdominal pelvis CT today by infectious disease and consider discontinuation of antibiotics afterwards. Sodium level today is 130. Still pending approval for discharge to LTAC versus [facility]. 01/25/2024 Patient remains in the intensive care unit he continues off IV Precedex at this time. Continues with TPN. Repeat chest abdomen pelvis CT completed yesterday which shows a decrease seen in the hydropneumothorax within the right lung base with drainage catheter there is no change in the bibasilar infiltrates and small left effusion. There is interval development of a dilated small bowel loop in the mid abdomen consistent with either a focal ileus or partial obstruction. There are findings suggestive of acute diverticulitis of the sigmoid colon with a small pericolic phlegmon abscess however is decreasing in the interval from compared in the prior study from 3.4 cm to 3 cm. There is moderate anasarca and the peritoneal dialysis catheter and small bowel drainage tube unchanged in position. Blood work today reveals a white blood cell count of 20.1, hemoglobin 8.3, sodium 131, BUN of 21, creatinine 0.66, magnesium 1.7. He is on IV Cipro. IV Flagyl was added today by infectious disease. Was made a full code at request of family. 01/26/2024 Patient remains in the ICU. More awake alert and oriented today. He continues on the trach collar. Sounds less congested. Continues on IV cipro and IV flagyl. White blood cell count better today at 16.3. Hgb 7.2. Sodium 130, potassium 3.4. Continues on TPN. 01/27/2024 Patient is seen in follow-up continues to be in the ICU with multiple consultations following. Family at the bedside and patient is more awake although continues with bronchial congestion and frequent suctioning with the trach collar. Patient remains off Precedex. Patient continues on antibiotics for possible lung abscess that was positive for Pseudomonas with a persistent air leak. Minimal output of the pigtail catheter noted. FiO2 is 40% trach collar maintained on 10 L oxygen. Patient continues on TPN and will adjust accordingly per dietary and pharmacy. Overall prognosis remains extremely poor. Patient remains full code. Per nursing staff patient was denied from [facility] with case management/social work following. 01/28/2024 Patient is eval in follow-up today in the intensive care unit. He had an axillary temp 101.6 for this reason a septic protocol was done including urinalysis blood cultures and viral panel. He remains on IV cipro and IV flagyl. Airleak to the chest tube remains to suction. He continues on a trach collar 40% FiO2 with oxygen at 8 L. He continues on TPN and lipids adjustments per dietary and pharmacy. We are currently not using the J-tube for feedings at this time. He has a wound VAC in place to the midline abdominal incision. He is more awake alert and oriented and less agitated. Sodium level today is 133. Renal function is within normal limits. 01/29/2024 Patient is evaluated today in the ICU with family at the bedside. He continues to have elevated temps. He is more lethargic. White count 20.2 today. Septic work up started. Repeat urinalysis not overly suggesting of infection. Viral panel negative. Chest xray today reveals patchy and confluent bilateral airspace disease similar to slightly worsened. Right-sided pleural catheter demonstrated. There is similar small right pleural effusion. He was started on IV vancomyin, IV meropenem and IV metronidazole. The cipro has been discontinued. Lactic acid 2.3. Sodium 134, renal function normal. Hgb 7.6. Tube feedings remain on hold. Not safe to restart and he continues on TPN/Lipids. 01/30/2024 Patient evaluated today in follow up. Remains in the ICU. Underwent bronchoscopy and repair of a tear in the tracheostomy cuff. Deep sputum culture pending. Patient remains on the mechanical ventilator with ABGs today showing pH level of 0.33, pCO2 of 59, pO2 of 152, HCO3 of 41, total CO2 of 33, hemoglobin 6.6. Lactic acid has normalized. White blood cell count 19.3 today hemoglobin 7.3. Patient is continued on IV propofol as well as backs. Continues on antibiotics in the form of IV vancomycin, IV meropenem, IV metronidazole. Continues on TPN lipids. Chest xray improved throughout both lung ramirez with mild improved aeration at the right lung base. No pneumothorax present. Right-sided chest tube remains in place to suction. 01/31/2024 Patient evaluated today in follow up in the intensive care unit. Remains on the mechanical ventilator, 50% FiO2. Family at the bedside and hoping for extubation today. Continues on TPN/Lipids. Labs today reveal white blood cell count 15.4, hgb 7.0, platelet count 169. Sodium 136, potassium 5.4. BUN 29, creatinine 0.61. Chest xray today reveals ongoing multifocal patchy and confluent airspace disease. A small to moderate right pleural effusion may be slightly increased. Sputum culture from bronchoscopy continues to show pseudomonas. Chest tube remains in place. on IV vancomycin and IV meropenem. 02/01/2024 Evaluated today in follow-up in the intensive care unit. Patient remains on mechanical ventilator with a 50% FiO2. His repeat sputum cultures from the bronchoscopy continue to show Pseudomonas. He continues on IV vancomycin and IV meropenem infectious diseases following closely. He continues with a wound VAC to his midline abdominal incision. Per surgery they feel that the fistula from his J-tube is mature he is currently off of tube feedings at this time though continues on TPN lipids. White blood cell count today is 15.3, hemoglobin 7.2, sodium 140, potassium 5.0, BUN of 33, creatinine 0.59. 2.0 mL of drainage over the last couple days. His chest x-ray today reveals no change in the marked diffuse cardiopulmonary process including scattered interstitial and partially consolidative infiltrates and bilateral pleural effusions which remain unchanged as compared to prior. 02/02/2024 Patient is evaluated today in follow-up in the intensive care unit. Patient remains in the mechanical ventilator with an FiO2 of 50%. His repeat sputum cultures are showing Pseudomonas now with drug resistance Pseudomonas is susceptible to amikacin and tobramycin with intermediate susceptibility to Zosyn and gentamicin. Antibiotics have been adjusted to Tobramycin and IV zosyn. February 03, 2024: I resumed care of the patient today. ICU. I was away last week. Patient had a tracheostomy leak. Underwent a bronchoscopy. And went back on the ventilator. Currently FiO2 5040% and a PEEP of 5. Drips include Precedex. Also getting TPN lipids. Patient getting Dilaudid 0.5 mg every 3 hours. And also Toradol. Good urine output. Right-sided RAYA drain was removed on January 27. Chest tube drain has minimal output. Patient continues to leak from the left-sided G-tube site. Patient's abdomen is rather distended. Surgery will be evaluating the patient today. Patient's and daughter at the bedside. That questions regarding the abdomen will defer the same to surgical team. Patient is extremely high risk for any surgery. Spoke to David the caseworker. As of now LTAC had declined the patient. Patient also has a stage III on the buttock. Patient has a Shiley #8 tracheostomy tube. Checks x- ray today shows extensive interstitial and patchy bilateral infiltrates. New prominent air density below the diaphragm no peritoneum was to be excluded. Patient's bronchoscopy results show multidrug-resistant Pseudomonas. Patient has been treated with Zosyn and tobramycin-currently getting both.. Patient is awake. Attempts to talk. Able to follow commands. February 04, 2024: ICU. and the daughter at the bedside. is rather tearful. Yesterday evening Dr. Irby from surgery said surgical intervention highly risky including poor outcome. Second opinion was obtained from Dr. Pompa this morning. Also recommended possible hospice. Dr. Russ from pulmonary also spoke to the family. Prognosis remains poor. CT scan abdomen yesterday during showed large pneumoperitoneum. NG tube to suction. On propofol. Patient sedated. Sinus rhythm. Right-sided chest tube remains in place. J-tube site to gravity drainage. Getting TPN lipids. I also suggested comfort measures. February 04: ICU. Saw the patient this morning. and assist at the bedside. Remains on propofol. IVs include TPN and liquids. Right chest tube remains in place. Left-sided J-tube to drainage to gravity. On the ventilator with FiO2 40 and a PEEP of 5. Lethargic but able to follow some commands. February 05: ICU. Patient remains on propofol. A bit lethargic. Does follow simple commands. Getting TPN lipids. Right chest tube in place. Left J-tube to drainage to gravity. On the ventilator FiO2 50%. I walked in the room Dr. Alford from surgery today. Talk to the family. Spoke to Dr. Russ, Dr. Jason Leonard all feel baby should be hospice comfort care. I did express this to the family including the and his daughter and sister at the bedside. They also had a patient's daughter on the phone. All the treatment seems to be futile. Will be extremely appropriate for the patient to be comfort cares measures. I have asked for a multidisciplinary meeting with the family tomorrow at [address] Montes, Dr. Russ, Dr. Alford and myself. Wound VAC in place. February 06: ICU. Patient was taken off propofol put on Precedex. Following commands. Getting TPN lipids. Right chest tube remains in place. Minimal output. Left-sided J-tube to drainage to gravity continues with output. Remains on the ventilator. Wound VAC. NG tube remains in place. FiO2 35 and PEEP of 5. Patient continues to get intermittent Lasix.Currently on IV tobramycin and IV Zosyn. Multiple disciplinary meeting was held at 11 AM in the ICU today. Meeting was requested by myself. People present in the room in the meeting included Dr. Alford from general surgery, Dr. Montes from ID, Dr. Russ from appliance fixer, nurse Anitha, patient's , patient's eldest daughter, patient's brother and some other family members. Several questions were answered and all specialist gave the portion. Specifically: Dr. Montes from ID: No further change in antibiotic at present time. Per Dr. Alford: No surgical options patient extremely high risk from surgery and mood diabetes any benefit will be done. Per Dr. Russ: Will keep adjusting patient's vent settings in view of the tracheostomy. Patient just ask about taking the patient home with palliative care. Given patient's critical illness and the fact that this still wanted the patient to get better, sending her home is currently not an option in that case. Active Medications Albuterol/Ipratropium (Ipratropium-Albuterol 3 Ml Neb) 3 ml INHALATION RT-QID [facility]AL Last Admin: 02/07/24 13:14 Dose: 3 ml Albuterol/Ipratropium (Ipratropium-Albuterol 3 Ml Neb) 3 ml INHALATION RT-Q2H PRN PRN Reason: Shortness Of Breath Or Wheezing Last Admin: 02/02/24 04:31 Dose: 3 ml Benzocaine (Benzocaine Floyd 1 Can) 1 spray MUCOUS MEM TID PRN; Protocol PRN Reason: Mouth Irritation Bisacodyl (Bisacodyl 10 Mg Supp) 10 mg RECTAL DAILY NIRMAL Last Admin: 02/07/24 08:16 Dose: Not Given Dextrose/Water (Dextrose 50% Syringe 50 Ml) 25 ml IVP PER PROTOCOL PRN; Protocol PRN Reason: Hypoglycemia Last Admin: 01/03/24 06:18 Dose: 25 ml Dextrose/Water (Dextrose 50% Syringe 50 Ml) 50 ml IVP PER PROTOCOL PRN; Protocol PRN Reason: Hypoglycemia Last Admin: 12/25/23 18:03 Dose: 50 ml Hydralazine HCl (Hydralazine Hcl 20 Mg/Ml 1 Ml Vial) 10 mg IVP Q6HR PRN PRN Reason: SBP >140 Last Admin: 02/03/24 13:10 Dose: 10 mg Hydromorphone HCl (Hydromorphone 0.5 Mg/0.5 Ml Syringe) 0.5 mg IVP Q3HR PRN PRN Reason: Pain Last Admin: 02/07/24 00:40 Dose: 0.5 mg Piperacillin Sod/Tazobactam (Sod 3.375 gm/ Sodium Chloride) 100 mls @ 25 mls/hr IVPB Q8HR NIRMAL; Protocol Last Admin: 02/07/24 08:12 Dose: 25 mls/hr Propofol 1,000 mg/ IV Solution 100 mls @ 9.63 mls/hr IV .[id number] [facility]; Protocol Last Titration: 02/06/24 21:15 Dose: 0 mcg/kg/min, 0 mls/hr Parenteral Vitamin Supplement 10 ml/ Zinc/Copper/Manganese/Selenium 1 ml/ Sodium Acetate 50 meq/ Magnesium Sulfate 1.5 gm/ Potassium Phosphate 3 mmol / Sodium Chloride 72 meq/Calcium Gluconate 1 gm/Potassium Chloride 50 meq/Amino Acids/Dextrose 1,093 mls @ 45 mls/hr IV .Q24H [facility] Last Infusion: 02/07/24 11:17 Dose: 65 mls/hr Tobramycin Sulfate 200 mg/ (Sodium Chloride) 105 mls @ 105 mls/hr IVPB Q36H [facility] Last Admin: 02/07/24 11:01 Dose: 105 mls/hr Dexmedetomidine HCl 400 mcg/ (IV Solution) 100 mls @ 5.375 mls/hr IV .[id number] [facility]; Protocol Last Admin: 02/07/24 08:14 Dose: 0.6 mcg/kg/hr, 16.125 mls/hr Sodium Acetate 50 meq/Magnesium Sulfate 1.5 gm/Potassium Phosphate 6 mmol/Sodium Chloride 72 meq/Calcium Gluconate 1.25 gm/Potassium Chloride 50 meq/Amino Acids/Dextrose 1,085.5 mls @ 65 mls/hr IV .BY DURATION [facility] Sodium Acetate 50 meq/Magnesium Sulfate 1.5 gm/Potassium Phosphate 6 mmol/Sodium Chloride 72 meq/Calcium Gluconate 1.25 gm/Potassium Chloride 50 meq/Amino Acids/Dextrose 1,085.5 mls @ 65 mls/hr IV .BY DURATION [facility] Fat Emulsion Intravenous 250 (ml/ IV Solution) 250 mls @ 21 mls/hr IV Tu [facility] Insulin Aspart (Insulin Aspart (Novolog) 100 Unit/Ml Vial) 0 unit SQ 0000,0600,1200,1800 [facility]; Protocol Last Admin: 02/07/24 14:22 Dose: 2 unit Lidocaine HCl (Lidocaine 2% (Pf) 20 Mg/Ml 5 Ml Vial) 60 mg INHALATION Q6HR PRN PRN Reason: Dyspnea Last Admin: 02/01/24 00:29 Dose: 60 mg Lorazepam (Lorazepam 2 Mg/Ml Inj) 1 mg IV Q6HR PRN PRN Reason: Anxiety Last Admin: 02/07/24 00:36 Dose: 1 mg Miscellaneous Information (Phosphorus Replacement Protoco 1 Each Misc) 1 each MISCELLANE DAILY PRN; Protocol PRN Reason: Per Protocol Miscellaneous Information (Magnesium Replacement Protocol 1 Each Misc) 1 each MISCELLANE DAILY PRN; Protocol PRN Reason: Per Protocol Miscellaneous Information (Potassium Replacement Protocol 1 Each Misc) 1 each MISCELLANE DAILY PRN; Protocol PRN Reason: Per Protocol Multi-Ingred Cream/Lotion/Oil/Oint (Hydrophilic Cream 180 Gm Tube) 1 applic TOPICAL BID [facility]; Protocol Last Admin: 02/07/24 08:15 Dose: 1 applic Multi-Ingredient Ointment (Zinc Oxide 20% Oint 28.4 Gm Tube) 1 applic TOPICAL BID PRN; Protocol PRN Reason: Skin Irritation Naloxone HCl (Naloxone 0.4 Mg/Ml 1 Ml Vial) 0.2 mg IV Q2M PRN PRN Reason: Opioid Reversal Ondansetron HCl (Ondansetron 4 Mg/2 Ml Vial) 4 mg IVP Q6HR PRN PRN Reason: Nausea And Vomiting Last Admin: 01/23/24 17:28 Dose: 4 mg Pantoprazole Sodium (Pantoprazole 40 Mg/10 Ml Vial) 40 mg IVP BID NIRMAL Last Admin: 02/07/24 08:12 Dose: 40 mg Petrolatum (Zinc Oxide Paste (Z-Guard) 1 Applic) 1 applic TOPICAL BID [facility]; Protocol Last Admin: 02/07/24 08:15 Dose: 1 applic Past medical history to include: GERD Social history: . No smoking. Physical examination: VITAL SIGNS: 98.1, 73, 22, 159 x 96, 98% on the ventilator GENERAL: Does open eyes. Attempts to talk EYES: Pupils equal. , tracking Conjunctiva edouard l. HEENT: External appearance of nose and ears normal, tracheostomy-. NG tube to intermittent suction NECK: JVD unable to assess; masses not palpable. HEART: First and second heart sounds are normal; edema, present LUNGS: Respiratory rate increased, decreased breath sounds right chest wall pigtail catheter ABDOMEN: Soft, some tenderness. Liver spleen not palpable, no masses palpable..jejunostomy tube-dressing in place, . RAYA drain. Incision with stitches with - wound VAC PSYCH: Unable to assess NEURO: Does lift his right arm. Attempts to talk INVESTIGATIONS, reviewed in the clinical context: February 06: Sodium 142 potassium 3.4 BUN 20 creatinine 0.62 February 05: White count 12.5 hemoglobin 7.7 platelets 358 potassium 3.9 creatinine 0.66 February 04: White count 13.4 hemoglobin 7.1 platelets 336 potassium 3[address] abdomen pelvis [February 02] massive pneumoperitoneum with possibly right lower quadrant large bowel and/or small bowel perforation. Hyperemia and wall thickening of the cecum and ascending colon. February 03: White count 8.6 hemoglobin 7.8 platelets 354 potassium 3.1 BUN 39 creatinine 0.62 Sputum [January 21] Pseudomonas aeruginosa-multiple drug-resistant February 02: White count 16.5 hemoglobin 8.6 platelets 385 sodium 142 potassium 3.1 BUN 37 creatinine 0.65 January 21: White count 14.9 hemoglobin 7.9 platelets 399 potassium 3[address] abdomen pelvis [January 05]: 3.1 cm organized fluid collection within the rectovesicular space concerning for abscess. No change in right upper lung 4.9 cm fluid collection with a fluid level. For possible pulmonary abscess. Moderate size right lung base multiloculated hydropneumothorax possibly abscess. Additional areas of air bronchograms. January 05: White count 10.6 hemoglobin 7.6 platelets 111 sodium 137 potassium 3.5 BUN 44 creatinine 0.95 January 03: White count 13.4 hemoglobin 8.1 platelets 95 potassium 5.2 creatinine 1.1 albumin 1.8 Sputum culture [December 24] Citrobacter freundii, Pseudomonas aeruginosa Blood culture [December 24] Staphylococcus pettenkoferi December 24: White count 1.5 hemoglobin 8.2 platelets 106 potassium 3.8 BUN [address] chest abdomen without contrast [December 16] right upper lung cavitary lesion with air-fluid level in the posterior aspect and a larger cavitary lesion possibly within the lung parenchyma itself. Extending down towards the diaphragm additional airspace opacities in the left lung base. December 09: White count 26.1 hemoglobin 8.6 platelets 154 potassium 4.1 BUN 86 creatinine 3.31. Hemoglobin this morning was 6.6 prior to transfusion EEG-evidence of generalized cerebral dysfunction and sporadic intermittent higher amplitude sharply contoured waves mainly bifrontal. Showing cortical irritability. 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 Serosal fibrous adhesions. Viable margins. Sputum culture: [November 25]: Citrobacter freundii. Pseudomonas aeruginosa November 20: White count 14.4 hemoglobin 8.8 platelets 229 potassium 4.1 BUN [address] scan abdomen [November 19] possible small bowel obstruction Stool: C. difficile negative November 15: WBC 13 hemoglobin 7.7 platelets 248 potassium 4.3 creatinine 0.87 2D echo: EF 55 to 60%. Kidneys bladder: Unremarkable November 13: White count 12 hemoglobin 6.9 platelets 276 potassium 4.4 creatinine 1.21 magnesium 1.8 iron 6 TIBC 365% saturation 1.64 transferrin 261 ferritin 34.6 B12 569 folate 4.4 November 11: Creatinine 0.86 EGD: Large amount of retained solid liquid food noted in the stomach. Large superficial gastric antral ulceration involving most of the antrum extending into the pylorus causing pyloric stenosis. Biopsies were obtained. Chest x-ray film personally reviewed by me-scattered infiltrates Assessment plan: -Aspiration and gram-negative bacterial pneumonia a bilateral initially from retained gastric contents mostly food and liquids, causing acute hypoxic respiratory failure: On presentation: Subsequent bacterial pneumonia and lung abscess sputum culture November 25: Citrobacter freundii, Pseudomonas aeruginosa. December 13: Klebsiella oxytoca, Pseudomonas aeruginosa. December 29: Multidrug-resistant Pseudomonas aeruginosa IV meropenem-, IV Zosyn.IV ceftolozane/tazobactam, IV daptomycin, tobramycin- all discontinued Currently getting IV Zosyn and tobramycin -Large pneumoperitoneum likely from perforation. Has been told by Dr. Peñaloza and Dr. Pompa from surgery/[second opinion]. Extremely high risk for any surgery. Very poor outcome. -Intermittent asynchronous with the ventilator. -January 28 patient underwent tracheostomy tube exchange and bronchoscopy with lavage by Dr. Love for a leak around the tracheostomy tube. Patient is a #8 Shiley tracheostomy tube. An air leak was resolved Previously had a leak. Currently resolved -Pain, multifactorial Getting Dilaudid as needed with Toradol -Sepsis with septicemia from above Patient received multiple antibiotics -Right l lung abscess, pigtail catheter placed January 07, 2024.: Slow to respond Initially about 200 cc of pus obtained. During the procedure large amount of pus poured out of the tracheostomy site when patient was rolled on the left side. Status post bronchoscopy with some lavage on 01/07/2024 - lung abscess larger 1 on the right side-patient cultures are growing Pseudomonas and Klebsiella oxytoca: , Received other antibiotics. Currently on Zosyn and tobramycin -Acute pulmonary edema and fluid overload from hypoalbuminemic state and fluids from IV.:: Has been getting Lasix and dialysis: Both held -Altered mentation. Possibly encephalopathy. Could be delirium.: Improvement CT brain [December 06] nothing acute Neurology following EEG-evidence of generalized cerebral dysfunction and sporadic intermittent higher amplitude sharply contoured waves mainly bifrontal. Showing cortical irritability. Keppra was started on December 07 -Critical care poly- Pedro neuropathy: Slow to respond PT OT -Gallstones, asymptomatic -Small l bowel perforation at site of jejunostomy tube tip with balloon..: Portion of small bowel resected. On November 24. New J-tube was placed.- drainage to gravity:-Now discontinued December 19: J-tube blocked. J-tube replaced on December 20 over wire December 21: Leaking around the J-tube site. Feeding held December 23: J feeding was started yesterday evening but again started leaking increasingly around the J-tube site-feeding held again December 24: J-tube feeding has been held. Patient is currently having increased drainage from the J-tube site -Acute kidney injury. Possible ATN from hypotensive shock: Resolved Renal ultrasound unremarkable. Started on renal replacement therapy on November 28. Last hemodialysis on December 17. Being followed by an nephrology. Good urine output. -Nutrition Jejunostomy tube placed November [address] Ewing Received TPN-this was discontinued. TPN lipids restarted on December 24 -Midline abdominal incision wound dehiscence Wound VAC in place -Acute recurrent atrial fibrillation-converted to sinus rhythm Received IV amiodarone. Cardiology following -Acute hypoxic respiratory failure from aspiration pneumonia, status post ventilator assisted: Reintubated November 25. FiO2 35 PEEP of 5 Tracheostomy tube-by Dr. Zepeda on December 09 Tracheostomy tube changed to #8 Shiley on January [address] Love -Septic shock, recovered -Hypertension, recurrent Had received Cleviprex. Hydralazine added -Intermittent hypotension: Corrected Intermittent use of Levophed. 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 Also anemia of blood draw. Iron deficiency anemia Received total of 8 units of blood IV iron. -Severe thrombocytopenia. Would consider coagulation disorder secondary to infection., In the setting of underlying lymphoma.: Fluctuating with infection: Improved Hematology following. 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 difficile ruled out. -Large superficial gastric antral ulceration involving the gastric antrum extending into the pylorus with gastric outlet obstruction. 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 -DNR made on January 12. Now full code with instructions on January 17. Patient is full code now Prognosis remains poor. Family wishes to continue current treatment plan. Patient not stable to be discharged home for palliative care. As patient's family wishes to continue treatment. Past Medical History Past Medical History: GERD/Reflux History of Any Multi-Drug Resistant Organisms: None Reported Past Surgical History: Heart Catheterization Additional Past Surgical History / Comment(s): colonsocopy,spinal injection, Past Anesthesia/Blood Transfusion Reactions: No Reported Reaction Past Psychological History: No Psychological Hx Reported Smoking Status: Never smoker Past Alcohol Use History: None Reported Past Drug Use History: None Reported
[2024-02-07 18:12] LABS: Glucose,Whole Blood 152 mg/dL (70-110)
--- NOTE | 2024-02-07 20:23 | P.PN ---
Subjective Progress Note Date: 02/07/24 No acute events. Objective - Vital Signs Vital signs: Vital Signs Temp 98.1 F 02/07/24 16:00 Pulse 68 02/07/24 19:50 Resp 20 02/07/24 19:50 BP 158/97 02/07/24 19:00 Pulse Ox 97 02/07/24 19:00 FiO2 35 02/07/24 19:43 Intake & Output 02/07/24 02/07/24 02/08/24 06:59 18:59 06:59 Intake Total 783.755 899.988 45 Output Total 700 2550 100 Balance 83.755 -1650.012 -55 Weight 110.2 kg 110.2 kg Intake: IV 660 495 45 0.9 Normal Saline @ KVO 120 TPN 540 495 45 Intake, IV Titration 123.755 404.988 Amount Dexmedetomidine/0.9% NaCl 100.000 92.988 (Pmx) 400 mcg In Empty Bag 1 bag @ 0.2 MCG/KG/HR 5.375 mls/hr IV .[id number] NIRMAL Rx#:[id number] Mvi, Adult No.4 with Vit 312 K 10 ml Trace (Conc-1Ml/ Dose) 1 ml Sodium Acetate 50 meq Magnesium Sulfate gm 1.5 gm Potassium Phosphate 3 mmol Sodium Chloride 4Meq/ml Vial 72 meq Calcium Gluconate 1 gm Potassium Chloride 50 meq In Amino Acids 5 %/ Dextrose 20 % 1,000 ml @ 45 mls/hr IV .Q24H [facility]AL Rx #:[id number] propofoL 1,000 mg In 23.755 Empty Bag 1 bag @ 15 MCG/ KG/MIN 9.63 mls/hr IV . [id number] NIRMAL Rx#:[id number] Output: Chest Tube Drainage 0 0 Chest Tube Right 0 0 Drainage 0 150 Medial Abdomen 0 150 Urine 700 2400 100 Other: Voiding Method Indwelling Catheter Indwelling Catheter ABP, PAP, CO, CI - Last Documented Arterial Blood Pressure 175/83 - Constitutional General appearance: Present: no acute distress - Gastrointestinal Gastrointestinal Comment(s): Distended, J-tube with surrounding output unchanged, wound VAC in place - Labs CBC & Chem 7: 02/06/24 08:20 02/07/24 06:00 Labs: Abnormal Lab Results - Last 24 Hours (Table) 12/07/2502/07/24 02/07/24 Range/Units 23:50 05:19 05:24 ABG pH 7.48 H (7.35-7.45) ABG HCO3 28 H (21-25) mmol/L ABG Total CO2 29 H (19-24) mmol/L ABG O2 Saturation 98.9 H (94-97) % Hemoglobin 7.4 L (13.0-17.5) gm/dL Potassium (3.5-5.1) mmol/L Chloride (98-107) mmol/L Creatinine (0.66-1.25) mg/dL Glucose (74-99) mg/dL POC Glucose (mg/dL) 130 H 159 H (70-110) mg/dL Calcium (8.4-10.2) mg/dL 02/07/24 02/07/24 02/07/24 Range/Units 06:00 06:09 12:52 ABG pH (7.35-7.45) ABG HCO3 (21-25) mmol/L ABG Total CO2 (19-24) mmol/L ABG O2 Saturation (94-97) % Hemoglobin (13.0-17.5) gm/dL Potassium 3.4 L (3.5-5.1) mmol/L Chloride 116 H (98-107) mmol/L Creatinine 0.62 L (0.66-1.25) mg/dL Glucose 143 H (74-99) mg/dL POC Glucose (mg/dL) 159 H 171 H (70-110) mg/dL Calcium 6.8 L (8.4-10.2) mg/dL 02/07/24 Range/Units 18:10 ABG pH (7.35-7.45) ABG HCO3 (21-25) mmol/L ABG Total CO2 (19-24) mmol/L ABG O2 Saturation (94-97) % Hemoglobin (13.0-17.5) gm/dL Potassium (3.5-5.1) mmol/L Chloride (98-107) mmol/L Creatinine (0.66-1.25) mg/dL Glucose (74-99) mg/dL POC Glucose (mg/dL) 152 H (70-110) mg/dL Calcium (8.4-10.2) mg/dL Assessment and Plan Plan: Meeting was had with the family with ID services, internal medicine, ICU team and myself representing surgery. Multiple questions were answered with multiple family members at bedside. Surgical questioning, I did state that patient is not a surgical candidate as patient is extremely high risk for further entero tyler creation and enterocutaneous fistula with possibility of inability to find the bowel perforation due to a frozen abdomen. Patient's brother was present and did ask about medical team's competency and I did encourage the family to continue to obtain other opinions if they are unsure of competency level of current medical management over the past few months. Multiple attempts have been made for transfer to tertiary care facility throughout his long admission with inability to transfer based on patient not being accepted. This was also discussed with the patient's family. Patient's brother did also inquire about alternative medicine including naturopathic and homeopathic routes. He was informed by internal medicine that as we are not licensed homeopathic or naturopathic physicians we are unable to provide that type of care in the hospital setting. Per family, they would like to continue to try all measures and we will continue management with antibiotics and conservative management without surgical intervention at this time.
[2024-02-07 23:44] LABS: Glucose,Whole Blood 173 mg/dL (70-110)
[2024-02-08] MEDS: [UNRECOGNIZED DRUG - OTHER] IV SCH ×2 (02:08→19:05)
[2024-02-08] MEDS: MAGNESIUM SULFATE IV SCH ×2 (02:08→19:05)
[2024-02-08] MEDS: SODIUM ACETATE IV SCH ×2 (02:08→19:05)
[2024-02-08] MEDS: POTASSIUM PHOSPHATE IV SCH ×2 (02:08→19:05)
[2024-02-08 05:15] LABS: ABG Base Excess 2.7 mmol/L; ABG HCO3 27 mmol/L (21-25); ABG Oxygen Saturation 98.6 % (94-97); ABG PCO2 36 mmHg (35-45); ABG PH 7.47 (7.35-7.45); ABG PO2 93 mmHg (83-108); ABG TCO2 28 mmol/L (19-24); Allen Test Performed? Yes
[2024-02-08 05:18] LABS: Basophils # (A) 0.1 k/uL (0-0.2); Basophils % (A) 1 %; Eosinophils # (A) 0.3 k/uL (0-0.7); Eosinophils % (A) 2 %; HCT 23.6 % (39.0-53.0); HGB 7.5 gm/dL (13.0-17.5); Hypochromasia Moderate; Lymphocytes # (A) 2.9 k/uL (1.0-4.8); Lymphocytes % (A) 19 %; MCH 30.4 pg (25.0-35.0); MCHC 31.8 g/dL (31.0-37.0); MCV 95.5 fL (80.0-100.0); Monocytes # (A) 0.5 k/uL (0-1.0); Monocytes % (A) 3 %; Neutrophils % (A) 74 %; Platelet Count 368 k/uL (150-450); RBC 2.47 m/uL (4.30-5.90); RDW 15.7 % (11.5-15.5); WBC 14.9 k/uL (3.8-10.6)
[2024-02-08 05:43] LABS: African American GFR (CKD) >90 (>60 ml/min/1.73 sqM); Anion Gap 4 mmol/L; Blood Urea Nitrogen 23 mg/dL (9-20); Calcium 7.7 mg/dL (8.4-10.2); Carbon Dioxide 25 mmol/L (22-30); Chloride 114 mmol/L (98-107); Glucose 178 mg/dL (74-99); Magnesium 2.1 mg/dL (1.6-2.3); Non-African American GFR(CKD) >90 (>60 ml/min/1.73 sqM); Phosphorus 3.7 mg/dL (2.5-4.5); Sodium 143 mmol/L (137-145)
[2024-02-08 05:51] LABS: Glucose,Whole Blood 178 mg/dL (70-110)
--- NOTE | 2024-02-08 07:07 | XR ---
EXAMINATION TYPE: XR chest 1V portable DATE OF EXAM: 02/08/2024 COMPARISON: 02/06/2024 CLINICAL INDICATION: Male, 73 years old with history of Pseudomonas/Mechanically Ventilated; TECHNIQUE: Single frontal view of the chest is obtained. FINDINGS: Tracheostomy tube unchanged in position. Interval removal of the NG tube. No change in the position of the right pleural pigtail drainage catheter. No change in the Mediport catheter tip in t he right atrium. No change in the left-sided PICC line tip in the SVC/RA junction. There is a stable diffuse interstitial process involving the left lung. There is stable mild blunting of the right costophrenic angle consistent with small right effusion or pleural parenchymal scarring . There is no pneumothorax. The heart size is normal. The osseous structures are intact. IMPRESSION: No significant interval change in the acute cardiopulmonary process. Interval removal of the NG tube. [facility] Workstation: [id number] 02/08/2024 7:05 AM
[2024-02-08] MEDS: FAT EMULSION 20% 250 ML in EMPTY BAG 1 BAG IV SCH (08:09)
[2024-02-08] MEDS: PROPOFOL 10 MG/ML 20 ML VIAL IV ONE (11:29)
[2024-02-08 11:40] LABS: Glucose,Whole Blood 194 mg/dL (70-110)
--- NOTE | 2024-02-08 11:46 | XR ---
EXAMINATION TYPE: XR chest 1V portable DATE OF EXAM: 02/08/2024 COMPARISON: 02/08/2024 CLINICAL INDICATION: Male, 73 years old with history of NGT placement; TECHNIQUE: Single frontal view of the chest is obtained. FINDINGS: There is an NG tube within the stomach. There are bibasilar infiltrates unchanged compared to the jaycob or study. There is a large amount of free intraperitoneal air beneath both hemidiaphragms no change c ompared to previous. IMPRESSION: 1. NG tube within the stomach. 2. No change in the large amount of free intraperitoneal air. 3. No change in the bibasilar lung infiltrates. The upper lung ramirez are not included on this study. [facility], Workstation: [email or web address] 02/08/2024 11:43 AM
--- NOTE | 2024-02-08 13:21 | P.PN ---
Subjective Progress Note Date: 02/08/24 Principal diagnosis: Acute hypoxic respiratory failure requiring intubation mechanical ventilation secondary to aspiration. This is a 73-year-old white male with history of chronic abdominal pain for the last 8 months has been treated with Protonix 40 mg daily for the last 3 months with no improvement. Patient had a 22 pound weight loss in the last [address] of the abdomen and pelvis 3 weeks ago showed thickening of the antral wall with pathological adenopathy posterior to the stomach suspicious of neoplasm. Today the patient underwent elective upper endoscopy to evaluate further, patient received IV sedation by anesthesia endoscope was inserted into the mouth, esop hagus was intubated without any difficulty there was evidence of large amount of liquid and solid food noted in the stomach suggestive of gastric outlet obstruction. Scope could not be advanced through the pylorus, however in the prepyloric area there was a large superficial ulceration identified with multiple biopsies were done from this area. The body cardia and fundus could not adequately visualize because of large amount of retained food in the stomach. Scope was withdrawn back to the stomach and upon careful examination the mucosa of the antrum body and cardia as well as the fundus appeared normal. Procedure was being performed and biopsies were done patient threw up and subsequently became hypoxic there was clearly evidence of witnessed aspiration anesthesia intubated the patient, procedure was terminated, and the patient was transferred to the ICU, this consult was initiated. Patient is now on assist- control rate of 20 tidal volume 500 FiO2 70% PEEP of 10 ABG is pending, earlier ABG showed profound hypoxia patient is on propofol at 50 mcg/kg/min, next ABG is pending. Chest x-ray showed chronic changes without evidence of acute pulmonary disease. 01/10/2024, the patient is on low-dose Precedex. Currently comfortable, sensitive to mechanical ventilator. Output from the pigtail has dropped and the patient continues to have a positive airleak. The chest x-ray shows bilateral consolidation worse on the right and there is a small right apical pneumothorax. Pigtail catheter is in a good location. Blood gas showed a pH of 7.48 with a pCO2 of 35 and a pO2 of 83. He is on assist-control mode with rate of 20, tidal volume of 600, FiO2 30% with a PEEP of 5. RAYA drain output is serosanguineous. TPN is at 90 cc an hour. Fluid balance is -700 cc. The white cell count is at 15.4, hemoglobin is at 6.7 and the patient was given a unit of packed RBC and a platelet count is 188. Electrolytes show a BUN of 46 with a creatinine of 0.7, sodium of 135, potassium level of 3.3. Antibiotics has been modified to a combination of ciprofloxacin and tobramycin as the patient showed quinolone sensitive Pseudomonas in the sputum and in the drain the abscess from the right lung. On 02/01/2024, the patient is still on propofol and currently is off Nimbex. Propofol is running at 30 mcg/kg/min. He remains on assist-control mode of mechanical ventilation at rate of 28, tidal volume of 500, FiO2 50% with a PEEP of 6. Blood gases showed a pH of 7.44 with a pCO2 of 53 and pO2 of 115. Chest x-ray shows bilateral consolidation. No significant cavitation. No pneumoth orax. There is a right-sided pigtail catheter in place. No significant change in the patient has diffuse bilateral pneumonia. Bronchoscopy was done on 01/30/2024 was consistent with Pseudomonas aeruginosa. The patient remains on a combination of meropenem, vancomycin and Flagyl. He is afebrile. Hemodynamically stable. Cardiac rhythm is sinus. Continues to have leaks around his tracheostomy tube and I decided to exchange tracheostomy tube to XLT longer tracheostomy tube to prevent post leaks. The patient remains on TPN for nutritional support. Fluid balance is -2.3 L as the patient received diuretics yesterday. Continues to have edema in all 4 extremities. The white cell count is lower at 15.3 with a hemoglobin of 7.2 and a platelet count of 408. Sodium is at 140, bicarb is at 34, BUN 33 with a creatinine of 0.5. No other significant events overnight. He seems to be more arousable compared to yesterday. On 02/02/2024, the patient is on Precedex running at 1.1 mcg/kg/min. He is a bit restless. Awake and tries to talk while even being on the mechanical ventilator. He remains on assist-control mode of mechanical ventilation. He is on volume-cycled rate of 20, tidal volume of 500, FiO2 of 50% with a PEEP of 6. Blood gas showed pH of 7.38 with a pCO2 of 61 and pO2 115. Chest x-ray shows multifocal bilateral pneumonia consolidation. No pneumothorax. Pigtail cath eter still present in the right hemithorax and there is intermittent air leak. No significant output. Fluid balance is +1.1 L over the past 24 hours. The most recent bronchioloalveolar lavage obtained from this patient showed Pseudomonas aeruginosa. Nevertheless, sensitivities have been changed and is Pseudomonas aeruginosa is multidrug-resistant, there is intermediate sensitivity to Zosyn and tobramycin and based on that the patient was started on a combination of Zosyn and tobramycin. He remains on TPN for nutritional support rate of 90 cc an hour. Blood work shows a white cell count of 11.1, hemoglobin is down to 6.4 and a platelet count is at 233. BUN 34 with a creatinine of 0.6 and a sodium levels at 141 with a potassium level is a 3.9. Vancomycin has been discontinued. Abdominal exam remains unchanged. Patient was seen today on , remains in the ICU, remains intubated and mechanically ventilated, patient had a new tracheostomy placed because of leak from his previous tracheostomy this was done by Dr. Beckford on 02/01/24. He also had bronchoscopy and mucous plugs extraction on 01/28 and 01/04 0. Patient is on assist-control rate 20 tidal volume 620 FiO2 50% PEEP of 5 ABG showed a pO2 of 122 pCO2 44 pH of 7.49 hence FiO2 was cut down to 40%. Patient will be given a weaning trial with a pressure support of 14 and CPAP, however he only lasted few minutes and his respiratory rate was in the high 40s and tidal volume was not great. Patient had to be placed back on assist mode of mechanical ventilation shortly after. Remains on Precedex at 0.7, TPN at 90 cc/h patient received a unit of packed RBCs on 02/01 for hemoglobin of 6.4. His sputum continues to show Pseudomonas and this was from 01/29 remains on Zosyn. Continues to have right-sided pigtail catheter with ongoing air leak. Not ready to remove. No evidence of pneumothorax noted on the chest x-ray, continues to have bilateral airspace disease. WBC count is 16.5 hemoglobin 8.6, Basic met abolic profile is normal potassium 3.1 BUN is 37 creatinine 0.65 Seen today on 02/04/2024, ICU, intubated and mechanically ventilated, patient had a CT of the abdomen and pelvis yesterday done mostly because of worsening abdominal distention and abnormal findings on the chest x-ray is suggestive of free air under the hemidiaphragm. Indeed the patient was found to have perforated viscus and pneumoperitoneum. The main situation here is the fact that the patient is extremely poor surgical candidate, and he is critically ill, doubt if he would even survive this perforation with medical therapy. In the meantime the patient remains on antibiotics in the form of tobramycin and Zosyn surgery on the case clearly stated to the that surgical mortality is 100%, and they would not recommend surgical intervention. Family is also aware that medical therapy alone has very high mortality considering his overall condition. Patient has been on antibiotics all along, he is intubated and mechanically ventilated on AC mode of 20 tidal volume 620 FiO2 40% PEEP of 5 patient ABG showed a pO2 of 109 pCO2 43 pH of 7.51, chest x-ray continues to show hydropneumothorax and bilateral airspace disease. I had a long discussion with the family today at bedside and even suggested comfort care measures to the family, as mortality is extremely high either way. Family to make a decision on comfort care measures/hospice. Time continue antibiotics, continue TPN, continue propofol at 45 mcg/kg/min, patient is not in any shape to consider any form of weaning at this point considering this new abdominal findings/bowel perforation WBC count today is 18.6 hemoglobin 7.8 basic metabolic profile is normal potassium is a bit low at 3.1 BUN is 39 creatinine 0.60 Patient was evaluated today on 02/05/2024, remains in ICU, intubated mechanically ventilated on assist-control rate of 20 tidal volume 620 FiO2 40% PEEP of 5 ABG showed a pO2 of 91 pCO2 40 pH of 7.50 patient developed bowel perforation and pn eumoperitoneum day before yesterday, and he is on antibiotics, surgery is not planning any surgical intervention because of high risk. Patient continues to have distended abdomen patient remains on propofol at 45 mcg/kg/min he is also on TPN at 45 mL/h. Today I went ahead and placed a right radial arterial line, patient is getting blood draws and prefers to have it done from the arterial line instead of poking him on a daily basis. X-ray continues show similar findings compared to chest x-ray yesterday, continues to have pigtail catheter on the right side with ongoing air leak. Antibiotics arce remains on Zosyn and tobramycin sputum cultures have been growing Pseudomonas aeruginosa and now his abdominal findings are of concerns and the patient has acute pneumoperitoneum. Patient was evaluated today on 02/06/2024, remains in the ICU remains intubated remains ventilated. Patient is on assist-control rate of 20 tidal volume 620 FiO2 40% PEEP of 5 ABG showed a pO2 of 135 pCO2 38 pH of 7.49. Continues to have air leak noted in the chest tube. Chest x-ray is basically about the same continues to have scattered infiltrates left more so than right, pigtail catheter remains in place, no evidence of pneumothorax noted on the chest x-ray today. WBC is 12.5 hemoglobin is 7.7, basic metabolic profile is normal renal profile is normal bicarb is 28. Patient remains on Zosyn and on tobramycin. Hemoglobin today is 7.7. Patient remains on TPN is at bedside, updated the on his condition and explained to the that his condition is extremely poor, she was expecting to hear from all 3 surgeons who have seen this patient since admission Patient was seen today on 02/07/2024, patient remains about this, he is on assist-control mode of mechanical ventilation, on Precedex, this was started yesterday to replace propofol, patient is arousable, generally weak, follows very simple instructions, a bit lethargic. Patient is on assist-control rate of 20 tidal volume 620 FiO2 35% PEEP of 5 ABG showed a pO2 of 102 pCO2 38 pH of 7.48 hence no changes were made in vent settings his Precedex dose is now 0.6 g/kg/h, remains on antibiotics in the form of Zosyn and tobramycin as per infectious disease on the case, remains on TPN at 45 cc/h today we had a long bleeding with the family and the different consultants on the case, and family was made aware of his poor prognosis and the surgeon made it clear that it is impossible and extremely risky to take him back to surgery and perform exploratory laparotomy he feels that this is potentially disastrous. Hence the patient cannot have surgery and in the meantime we are medically managing knowing that mortality is extremely high either way whether the patient goes to surgery or continue medical therapy I specifically asked the surgeon if he would consider exploratory laparotomy and he clearly stated he would not do so. Because of the high risk and totality. In the meantime family does not want to proceed to comfort care and it is impossible to manage this patient the way we are managing him at home, could not be transferred to an institution as no institution will accept the transfer including tertiary care institutions ABG was reviewed Labs today were reviewed renal profile was reviewed patient is a bit edematous and I recommended 1 dose of Lasix 20 mg IV push chest x-ray is basically the same continues to have bilateral airspace disease and continues to have ongoing air leak/bronchopleural fistula hence I have no plans to remove his pigtail catheter at this point yet Patient today on 02/08/2024, is at bedside, patient is on mechanical ventilation rate of 20 tidal volume 620 tidal volume FiO2 35% PEEP of 5 patient is on assist-control mode of mechanical ventilation, he is on Precedex at 0.6 un its/kg/h patient is on TPN at 65 cc/h remains on Zosyn and tobramycin. ABG showed a pO2 of 93 pCO2 36 pH of 7.47 patient is awake, appropriate, follows instructions, denies being in any pain however his abdominal distention seems to be getting worse, and quite tympanitic large area of air noted in the abdomen based on the chest x-ray itself, hence discussed with the surgeon and agreeable to proceed with CT of the abdomen and pelvis today. although what other findings noted on the CT of the abdomen pelvis according to the surgery will not change our treatment. The would like to know the status of his abdomen at this point could be given a trial of pressure support and CPAP today, his nasogastric tube was apparently pulled out by the patient or coughed out by the patient and will try to establish another nasogastric tube this will be done by Dr. Ruiz if she can today is 14.9 hemoglobin 7.5 basic metabolic profile is normal renal profile is normal Objective - Vital Signs Vital signs: Vital Signs Temp 98.2 F 02/08/24 12:00 Pulse 92 02/08/24 12:00 Resp 16 02/08/24 12:00 BP 165/116 02/08/24 07:00 Pulse Ox 97 02/08/24 12:00 FiO2 35 02/08/24 12:00 Intake & Output 02/07/24 02/08/24 02/08/24 18:59 06:59 18:59 Intake Total 899.988 995 647.944 Output Total 2550 990 715 Balance -1650.012 5 -67.056 Weight 110.2 kg 108.6 kg Intake: IV 495 300 120 0.9 Normal Saline @ KVO 80 120 Piperacillin-Tazobactam 3 175 .375 gm In Sodium Chloride 0.9% 100 ml @ 25 mls/hr IVPB Q8HR [facility] Rx# :[id number] TPN 495 45 Intake, IV Titration 404.988 100 95.944 Amount Dexmedetomidine/0.9% NaCl 92.988 100 95.944 (Pmx) 400 mcg In Empty Bag 1 bag @ 0.2 MCG/KG/HR 5.375 mls/hr IV .[id number] [facility] Rx#:[id number] Mvi, Adult No.4 with Vit 312 K 10 ml Trace (Conc-1Ml/ Dose) 1 ml Sodium Acetate 50 meq Magnesium Sulfate gm 1.5 gm Potassium Phosphate 3 mmol Sodium Chloride 4Meq/ml Vial 72 meq Calcium Gluconate 1 gm Potassium Chloride 50 meq In Amino Acids 5 %/ Dextrose 20 % 1,000 ml @ 45 mls/hr IV .Q24H [facility] Rx #:[id number] TPN/PPN 595 390 TPN 595 390 Lipid 42 Fat Emulsion 20% 250 ml 42 In Empty Bag 1 bag @ 21 mls/hr IV TuThSa [facility] Rx#: [id number] Output: Chest Tube Drainage 0 Chest Tube Right 0 Gastric Drainage 40 Drainage 150 10 Medial Abdomen 150 10 Urine 2400 980 675 Other: Voiding Method Indwelling Catheter Indwelling Catheter Indwelling Catheter ABP, PAP, CO, CI - Last Documented Arterial Blood Pressure 171/92 - Exam General: Revealed 73-year-old white male on mechanical ventilation, awake, follows instructions, on Precedex denies being in pain Skin: Skin is warm and dry and no rashes or lesions are noted. Tracheostomy is intact. Eye: Pupils are equal, round and reactive to light, extra-ocular movements are intact; there is normal conjunctiva bilaterally. Ears, nose, mouth and throat: There are moist mucous membranes and no oral lesions. Neck: The neck is supple, there is no tenderness or JVD. Tracheostomy is intact Cardiovascular: There is a regular rate and rhythm. No murmur, rub or gallop is appreciated. Respiratory: Good breath sound bilaterally no rhonchi no wheezes right-sided pigtail catheter remains in place continues to have air leak Gastrointestinal: Distended and tympanitic, wound VAC is noted J-tube site is the same with intermittently leaking Neurological: Awake, follows all instructions, no gross focal neurologic deficit patient is generally weak Extremities: 2+ bipedal edema - Labs CBC & Chem 7: 02/08/24 04:58 02/08/24 04:58 Labs: Abnormal Lab Results - Last 24 Hours (Table) 02/07/24 02/07/24 02/08/24 Range/Units 18:10 23:42 04:58 WBC 14.9 H (3.8-10.6) k/uL RBC 2.47 L (4.30-5.90) m/uL Hgb 7.5 L (13.0-17.5) gm/dL Hct 23.6 L (39.0-53.0) % RDW 15.7 H (11.5-15.5) % Neutrophils # 11.0 H (1.3-7.7) k/uL ABG pH (7.35-7.45) ABG HCO3 (21-25) mmol/L ABG Total CO2 (19-24) mmol/L ABG O2 Saturation (94-97) % Hemoglobin (13.0-17.5) gm/dL Chloride (98-107) mmol/L BUN (9-20) mg/dL Creatinine (0.66-1.25) mg/dL Glucose (74-99) mg/dL POC Glucose (mg/dL) 152 H 173 H (70-110) mg/dL Calcium (8.4-10.2) mg/dL 02/08/24 02/08/24 02/08/24 Range/Units 04:58 05:00 05:49 WBC (3.8-10.6) k/uL RBC (4.30-5.90) m/uL Hgb (13.0-17.5) gm/dL Hct (39.0-53.0) % RDW (11.5-15.5) % Neutrophils # (1.3-7.7) k/uL ABG pH 7.47 H (7.35-7.45) ABG HCO3 27 H (21-25) mmol/L ABG Total CO2 28 H (19-24) mmol/L ABG O2 Saturation 98.6 H (94-97) % Hemoglobin 7.3 L (13.0-17.5) gm/dL Chloride 114 H (98-107) mmol/L BUN 23 H (9-20) mg/dL Creatinine 0.64 L (0.66-1.25) mg/dL Glucose 178 H (74-99) mg/dL POC Glucose (mg/dL) 178 H (70-110) mg/dL Calcium 7.7 L (8.4-10.2) mg/dL 02/08/24 Range/Units 11:38 WBC (3.8-10.6) k/uL RBC (4.30-5.90) m/uL Hgb (13.0-17.5) gm/dL Hct (39.0-53.0) % RDW (11.5-15.5) % Neutrophils # (1.3-7.7) k/uL ABG pH (7.35-7.45) ABG HCO3 (21-25) mmol/L ABG Total CO2 (19-24) mmol/L ABG O2 Saturation (94-97) % Hemoglobin (13.0-17.5) gm/dL Chloride (98-107) mmol/L BUN (9-20) mg/dL Creatinine (0.66-1.25) mg/dL Glucose (74-99) mg/dL POC Glucose (mg/dL) 194 H (70-110) mg/dL Calcium (8.4-10.2) mg/dL Assessment and Plan Assessment: Impression: Acute hypoxic respiratory failure requiring intubation mechanical ventilation secondary to aspiration. Initially, however the patient recovered from aspiration pneumonia but went on to develop more complications after a J-tube was placed to bypass the obstruction that was noted by the lymphoma on his initial EGD done by gastroenterology. Patient had more and more complications after that J-tube replacement and continued to have malfunctioning J-tube and surgery did not feel further surgery on the J-tube will be of any value. Hence patient kept having TPN instead of enteral feeding and he continued to have intermittent leaking from the J-tube which was malfunctioning and then few days ago patient developed acute pneumoperitoneum this was felt by surgery that the patient poor healing after any surgical intervention including J-tube placement and tracheostomy as well as Port-A-Cath placement Status post tracheostomy on 12/10/2023 The patient has bilateral pneumonia with a cavitary infiltrate in the right upper lobe, secondary to Pseudomonas aeruginosa, Status post bronchoscopy on 01/28 and 01/04 and tracheostomy tube change on 01/04 Status post J-tube placement 11/16/2023, multiple complications since then related to the J-tube placement requiring multiple surgeries. 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 No drainage noted from the PEG tube however he continues to have ongoing airleak Acute peritonitis secondary to above, secondary to bowel perforation with abdominal contamination Septic shock secondary to above Paroxysmal atrial fibrillation Weight loss secondary to non-Hodgkin's lymphoma Acute aspiration pneumonia/right upper lobe lung abscess, improved, however patient went on to develop Klebsiella pneumonia and empyema related to Klebsie lla pneumonia quiring pigtail catheter placement Acute aspiration during upper endoscopy most likely secondary to gastric outlet obstruction secondary to non-Hodgkin's lymphoma based on the pathology from stomach biopsies, considering the gastric outlet obstruction patient required J- tube placement and again he went on to develop multiple complications since the J-tube was placed 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 At 1 point patient was able to tolerate trach collar for almost a week, but co nsidering all his comorbidities patient had to be placed back on mechanical positive pressure ventilation Critical illness polyneuropathy, profound weakness because of his prolonged ICU stay Metabolic encephalopathy improving and fluctuating from day-to-day has been improving as long as he is on Precedex not requiring too much propofol and narcotics Bowel perforation, diagnosed on 02/03/2024, surgery on the case is not recommending surgical intervention because of high mortality/morbidity, this i ssue was discussed with surgery in the presence of family members, and clearly surgery is not and will not plan any surgical intervention on his abdomen mostly because of high risk and high mortality. Following to surgery and admitting physician attempts have been made to transfer the patient to a tertiary care center and multiple attempts have failed Recommendation: Continue ventilatory support, continue to intermittently try weaning trials but the concern is patient will not do well for a long period of time mostly because of his abdominal sepsis picture his overall clinical situation Continue antibiotics including tobramycin and Zosyn Continue Precedex will try to avoid propofol and narcotics as much as possible and less felt to be necessary Continue nutritional support/TPN continue chest tube/pigtail catheter to suction, continues to have air leak not ready to be removed Continue GI and DVT prophylaxis Remains critically ill, prognosis is extremely poor Will arrange for CT of the abdomen pelvis today and assess his abdominal picture further and discussed the findings with the family Critical care time is over 30, Will continue to follow Time with Patient: Greater than 30
--- NOTE | 2024-02-08 13:54 | P.PN ---
Subjective Progress Note Date: 02/08/24 Patient seen and examined at bedside. Nasogastric tube fell out yesterday. Objective - Vital Signs Vital signs: Vital Signs Temp 98.2 F 02/08/24 12:00 Pulse 92 02/08/24 12:00 Resp 16 02/08/24 12:00 BP 165/116 02/08/24 07:00 Pulse Ox 97 02/08/24 12:00 FiO2 35 02/08/24 12:00 Intake & Output 02/07/24 02/08/24 02/08/24 18:59 06:59 18:59 Intake Total 899.988 995 647.944 Output Total 2550 990 715 Balance -1650.012 5 -67.056 Weight 110.2 kg 108.6 kg Intake: IV 495 300 120 0.9 Normal Saline @ KVO 80 120 Piperacillin-Tazobactam 3 175 .375 gm In Sodium Chloride 0.9% 100 ml @ 25 mls/hr IVPB Q8HR [facility] Rx# :[id number] TPN 495 45 Intake, IV Titration 404.988 100 95.944 Amount Dexmedetomidine/0.9% NaCl 92.988 100 95.944 (Pmx) 400 mcg In Empty Bag 1 bag @ 0.2 MCG/KG/HR 5.375 mls/hr IV .[id number] [facility] Rx#:[id number] Mvi, Adult No.4 with Vit 312 K 10 ml Trace (Conc-1Ml/ Dose) 1 ml Sodium Acetate 50 meq Magnesium Sulfate gm 1.5 gm Potassium Phosphate 3 mmol Sodium Chloride 4Meq/ml Vial 72 meq Calcium Gluconate 1 gm Potassium Chloride 50 meq In Amino Acids 5 %/ Dextrose 20 % 1,000 ml @ 45 mls/hr IV .Q24H [facility] Rx #:[id number] TPN/PPN 595 390 TPN 595 390 Lipid 42 Fat Emulsion 20% 250 ml 42 In Empty Bag 1 bag @ 21 mls/hr IV TuThSa [facility] Rx#: [id number] Output: Chest Tube Drainage 0 Chest Tube Right 0 Gastric Drainage 40 Drainage 150 10 Medial Abdomen 150 10 Urine 2400 980 675 Other: Voiding Method Indwelling Catheter Indwelling Catheter Indwelling Catheter ABP, PAP, CO, CI - Last Documented Arterial Blood Pressure 171/92 - Constitutional General appearance: Present: no acute distress - Gastrointestinal Gastrointestinal Comment(s): Soft, significant distention, no rebound or guarding, wound VAC in place, J-tube in place with continued surrounding drainage - Labs CBC & Chem 7: 02/08/24 04:58 02/08/24 04:58 Labs: Abnormal Lab Results - Last 24 Hours (Table) 02/07/24 02/07/24 02/08/24 Range/Units 18:10 23:42 04:58 WBC 14.9 H (3.8-10.6) k/uL RBC 2.47 L (4.30-5.90) m/uL Hgb 7.5 L (13.0-17.5) gm/dL Hct 23.6 L (39.0-53.0) % RDW 15.7 H (11.5-15.5) % Neutrophils # 11.0 H (1.3-7.7) k/uL ABG pH (7.35-7.45) ABG HCO3 (21-25) mmol/L ABG Total CO2 (19-24) mmol/L ABG O2 Saturation (94-97) % Hemoglobin (13.0-17.5) gm/dL Chloride (98-107) mmol/L BUN (9-20) mg/dL Creatinine (0.66-1.25) mg/dL Glucose (74-99) mg/dL POC Glucose (mg/dL) 152 H 173 H (70-110) mg/dL Calcium (8.4-10.2) mg/dL 02/08/24 02/08/24 02/08/24 Range/Units 04:58 05:00 05:49 WBC (3.8-10.6) k/uL RBC (4.30-5.90) m/uL Hgb (13.0-17.5) gm/dL Hct (39.0-53.0) % RDW (11.5-15.5) % Neutrophils # (1.3-7.7) k/uL ABG pH 7.47 H (7.35-7.45) ABG HCO3 27 H (21-25) mmol/L ABG Total CO2 28 H (19-24) mmol/L ABG O2 Saturation 98.6 H (94-97) % Hemoglobin 7.3 L (13.0-17.5) gm/dL Chloride 114 H (98-107) mmol/L BUN 23 H (9-20) mg/dL Creatinine 0.64 L (0.66-1.25) mg/dL Glucose 178 H (74-99) mg/dL POC Glucose (mg/dL) 178 H (70-110) mg/dL Calcium 7.7 L (8.4-10.2) mg/dL 02/08/24 Range/Units 11:38 WBC (3.8-10.6) k/uL RBC (4.30-5.90) m/uL Hgb (13.0-17.5) gm/dL Hct (39.0-53.0) % RDW (11.5-15.5) % Neutrophils # (1.3-7.7) k/uL ABG pH (7.35-7.45) ABG HCO3 (21-25) mmol/L ABG Total CO2 (19-24) mmol/L ABG O2 Saturation (94-97) % Hemoglobin (13.0-17.5) gm/dL Chloride (98-107) mmol/L BUN (9-20) mg/dL Creatinine (0.66-1.25) mg/dL Glucose (74-99) mg/dL POC Glucose (mg/dL) 194 H (70-110) mg/dL Calcium (8.4-10.2) mg/dL Assessment and Plan Plan: Due to abdominal distention, nasogastric tube recommendation to be replaced was made. I did assist with this at bedside. Patient did not tolerate initially, however with sedation we were able to place nasogastric tube. I had a long discussion once again with patient's at bedside. I did explain once again that patient is not a surgical candidate as risk of further enterotomies and enterocutaneous fistula and sepsis and are incredibly likely with operative intervention. Patient was also alert after sedation wore off and case was discussed with him. He did ask about prognosis and I did reiterate his poor prognosis. Continue medical and ICU management at this time.
--- NOTE | 2024-02-08 14:31 | P.PN ---
Subjective Progress Note Date: 02/08/24 Principal diagnosis: Reason for follow-up is pneumonia and diverticulitis Patient is 73-year-old with male initial presentation to the hospital on 11/12/2023 after the patient did have aspiration while undergoing elective endoscopy, diagnosed with a non-Hodgkin lymphoma subsequently did have exploratory laparotomy for perforated small bowel, abdominal washout and feeding jejunostomy tube patient did require dialysis catheter placement for dialysis during this hospital stay which was subsequently discontinued, and tracheostomy for respiratory failure. On today's evaluation that is 02/08/2024, patient did not have any fever, the patient is currently on the ventilator patient is awake and is trying to communicate FiO2 is down to 35% no vomiting or diarrhea has been reported. Patient white count is 14.9 creatinine is 0.64 Objective - Vital Signs Vital signs: Vital Signs Temp 98.1 F 02/08/24 08:00 Pulse 87 02/08/24 10:00 Resp 24 02/08/24 10:00 BP 165/116 02/08/24 07:00 Pulse Ox 96 02/08/24 10:00 FiO2 35 02/08/24 08:11 Intake & Output 02/07/24 02/08/24 02/08/24 18:59 06:59 18:59 Intake Total 899.988 995 477.944 Output Total 2550 990 565 Balance -1650.012 5 -87.056 Weight 110.2 kg 108.6 kg Intake: IV 495 300 80 0.9 Normal Saline @ KVO 80 80 Piperacillin-Tazobactam 3 175 .375 gm In Sodium Chloride 0.9% 100 ml @ 25 mls/hr IVPB Q8HR [facility] Rx# :[id number] TPN 495 45 Intake, IV Titration 404.988 100 95.944 Amount Dexmedetomidine/0.9% NaCl 92.988 100 95.944 (Pmx) 400 mcg In Empty Bag 1 bag @ 0.2 MCG/KG/HR 5.375 mls/hr IV .[id number] [facility] Rx#:[id number] Mvi, Adult No.4 with Vit 312 K 10 ml Trace (Conc-1Ml/ Dose) 1 ml Sodium Acetate 50 meq Magnesium Sulfate gm 1.5 gm Potassium Phosphate 3 mmol Sodium Chloride 4Meq/ml Vial 72 meq Calcium Gluconate 1 gm Potassium Chloride 50 meq In Amino Acids 5 %/ Dextrose 20 % 1,000 ml @ 45 mls/hr IV .Q24H [facility] Rx #:[id number] TPN/PPN 595 260 TPN 595 260 Lipid 42 Fat Emulsion 20% 250 ml 42 In Empty Bag 1 bag @ 21 mls/hr IV TuThSa [facility] Rx#: [id number] Output: Chest Tube Drainage 0 Chest Tube Right 0 Gastric Drainage 40 Drainage 150 10 Medial Abdomen 150 10 Urine 2400 980 525 Other: Voiding Method Indwelling Catheter Indwelling Catheter Indwelling Catheter ABP, PAP, CO, CI - Last Documented Arterial Blood Pressure 162/82 - Exam GENERAL DESCRIPTION: An elderly male intubated with trach RESPIRATORY SYSTEM: Unlabored breathing , coarse breath sounds anteriorly HEART: S1 S2 regular rate and rhythm , ABDOMEN: Soft , abdominal distention and tenderness EXTREMITIES: No edema feet - Labs CBC & Chem 7: 02/08/24 04:58 02/08/24 04:58 Labs: Abnormal Lab Results - Last 24 Hours (Table) 02/07/24 02/07/24 02/07/24 Range/Units 12:52 18:10 23:42 WBC (3.8-10.6) k/uL RBC (4.30-5.90) m/uL Hgb (13.0-17.5) gm/dL Hct (39.0-53.0) % RDW (11.5-15.5) % Neutrophils # (1.3-7.7) k/uL ABG pH (7.35-7.45) ABG HCO3 (21-25) mmol/L ABG Total CO2 (19-24) mmol/L ABG O2 Saturation (94-97) % Hemoglobin (13.0-17.5) gm/dL Chloride (98-107) mmol/L BUN (9-20) mg/dL Creatinine (0.66-1.25) mg/dL Glucose (74-99) mg/dL POC Glucose (mg/dL) 171 H 152 H 173 H (70-110) mg/dL Calcium (8.4-10.2) mg/dL 02/08/24 02/08/24 02/08/24 Range/Units 04:58 04:58 05:00 WBC 14.9 H (3.8-10.6) k/uL RBC 2.47 L (4.30-5.90) m/uL Hgb 7.5 L (13.0-17.5) gm/dL Hct 23.6 L (39.0-53.0) % RDW 15.7 H (11.5-15.5) % Neutrophils # 11.0 H (1.3-7.7) k/uL ABG pH 7.47 H (7.35-7.45) ABG HCO3 27 H (21-25) mmol/L ABG Total CO2 28 H (19-24) mmol/L ABG O2 Saturation 98.6 H (94-97) % Hemoglobin 7.3 L (13.0-17.5) gm/dL Chloride 114 H (98-107) mmol/L BUN 23 H (9-20) mg/dL Creatinine 0.64 L (0.66-1.25) mg/dL Glucose 178 H (74-99) mg/dL POC Glucose (mg/dL) (70-110) mg/dL Calcium 7.7 L (8.4-10.2) mg/dL 02/08/24 Range/Units 05:49 WBC (3.8-10.6) k/uL RBC (4.30-5.90) m/uL Hgb (13.0-17.5) gm/dL Hct (39.0-53.0) % RDW (11.5-15.5) % Neutrophils # (1.3-7.7) k/uL ABG pH (7.35-7.45) ABG HCO3 (21-25) mmol/L ABG Total CO2 (19-24) mmol/L ABG O2 Saturation (94-97) % Hemoglobin (13.0-17.5) gm/dL Chloride (98-107) mmol/L BUN (9-20) mg/dL Creatinine (0.66-1.25) mg/dL Glucose (74-99) mg/dL POC Glucose (mg/dL) 178 H (70-110) mg/dL Calcium (8.4-10.2) mg/dL Assessment and Plan (1) Sepsis Current Visit: Yes Status: Acute Code(s): A41.9 - SEPSIS, UNSPECIFIED ORGANISM SNOMED Code(s): 22364357 (2) Pneumonia Current Visit: Yes Status: Acute Code(s): J18.9 - PNEUMONIA, UNSPECIFIED ORGANISM SNOMED Code(s): 833681023 (3) Bacteremia Current Visit: Yes Status: Acute Code(s): R78.81 - BACTEREMIA SNOMED Code(s): 2246686 (4) Peritonitis Current Visit: Yes Status: Acute Code(s): K65.9 - PERITONITIS, UNSPECIFIED SNOMED Code(s): 37814946 Plan: 1 the patient did have a new fever also noticed to have worsening of his respiratory status concerning for pneumonia 2repeat blood culture have been negative sputum culture from 1127 is growing drug-resistant Pseudomonas aeruginosa sensitive only to tobramycin amikacin intermediate sensitive to Zosyn patient also have a bronchoscopy on 1128 that specimen is growing Pseudomonas with multidrug resistant pattern and intermediate to Zosyn sensitive to amikacin and tobramycin 3patient did have CT abdominal pelvis with evidence of large pneumoperitoneum concerning for possible large/small bowel perforation patient has been evaluated by Dr. subramanian for a second opinion from surgical standpoint and has been considered high risk for any surgical intervention, patient is getting another CT abdominal pelvis to evaluate for the intra-abdominal process if any worsening family may consider hospice and withdrawal of care 4patient will be Zosyn and tobramycin creatinine stable, the patient care discussed in detail with the and the daughter multiple question answered again Dictation was produced using [employer] dictation software. please excuse any grammatical, word or spelling errors. Time with Patient: Less than 30
--- NOTE | 2024-02-08 15:13 | CT ---
EXAMINATION TYPE: CT abdomen pelvis wo con DATE OF EXAM: 02/08/2024 2:44 PM COMPARISON: Previous CT abdomen/pelvis study dated 02/03/2024. CLINICAL INDICATION: Male, 73 years old with history of bowel perf; Peforated bowel, stomach CA TECHNIQUE: Axial CT abdomen pelvis wo con;Sagittal and coronal reformats were created on a separate workstation. Oral contrast used: without Oral Contrast CT DLP: 1233.4 mGycm, Automated exposure control for dose reduction was used. FINDINGS: LOWER CHEST: Similar appearing hydropneumothorax with right-sided chest tube in place. Small left-tereza ed pleural effusion and trace right pleural effusion. Increasing patchy consolidative opacities in th e partially visualized lower lungs suspicious for multifocal pneumonia. Partially visualized pacemake r leads. Enteric tube terminates within the stomach. ABDOMEN: Liver unremarkable noncontrast appearance. Cholelithiasis. Spleen normal in size and morphology. No s uspicious adrenal nodule. Pancreas without ductal dilatation. Nonobstructed calculus in the left kidn ey. No hydronephrosis or hydroureter present. Calcified atherosclerotic disease of the abdominal aorta without aneurysmal dilatation. Percutaneous jejunostomy tube again noted in the left hemiabdomen. Large volume pneumoperitoneum/free air, not sig nificantly changed from recent study 02/03/2024. Redemonstration colonic diverticulosis. Wall thickeni ng of the cecum and ascending colon, similar to prior study. No evidence of small bowel obstruction. No significant abdominal ascites. Diffuse mild mesenteric stranding/edema. Diffuse body wall edema/anasarca. No evidence of oral contrast extravasation from previous study. Ye dder underdistended with Abarca catheter in place. No acute osseous abnormality. IMPRESSION: 1. Small right hydropneumothorax with right-sided chest tube in place. Slightly decreasing size of l eft pleural effusion. Increasing patchy consolidations in the partially visualized lower lobes which could reflect multifocal pneumonia in the appropriate clinical setting. 2. Extensive pneumoperitoneum/free air throughout the abdomen, similar to recent study 02/03/2024. Th ere is redemonstration of nonspecific ascending colonic wall thickening. 3. Additional findings in the abdomen and pelvis, overall, not significantly changed from recent elva dy 02/03/2024. [facility], Workstation: [id number], 02/08/2024 3:10 PM
--- NOTE | 2024-02-08 16:03 | P.PN ---
Progress Note - Text Progress Note Date: 02/08/24 Chief Complaint: On the ventilator This is a 73-year-old patient, follows with Dr. Patricia Deal. Patient was seen this morning in the ICU. Patient's and daughter at the bedside. History obtained predominantly by the . Patient been having trouble with his stomach symptoms for close to 8 months. Patient underwent EGD by Dr. Sahara Cheng yesterday. Patient was found to have ulcerated around the antrum and obstruction to the pylorus. A lot of retained food was found. Patient aspirated. Had to be intubated and brought to the ICU. On a Levophed drip. FiO2 50 and a PEEP of 6. Patient had been losing weight lost about 25 pounds. Previously has a history of mitral valve prolapse. November 13: ICU. Patient remains on Precedex drip and propofol drip. Did not do well attempted extubation yesterday. Patient been off Levophed. NG tube to suction. Spoke to patient's and son at the bedside. Biopsy results awaited. Hemoglobin dropped to 6.9 this morning. Get a unit of blood. November 14: ICU. Up in a chair. Extubated yesterday. NG tube to suction. at the bedside. 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 Oncology was consulted. They have ordered a port. Results discussed with Dr. Sahara Cheng. General surgery was consulted for J-tube placement. Discussed with at the bedside. Patient getting IV fluids, IV Zosyn,. Patient has been on IV amiodarone for A-fib-back in sinus rhythm. Multiple PACs. Did receive unit of blood yesterday. Also IV ferric gluconate. November 15: ICU. Patient earlier today underwent jejunostomy tube placement and a port placement. Patient awake. Answering questions. NG tube to suction present. Updated patient's . Patient remains on IV amiodarone and IV Zosyn. November 16: ICU. Up in the chair. NG tube present but not to suction. Trickle feeding through the jejunostomy tube should be started today. Dietitian has been on board. IV Zosyn to continue. Patient's and his sister at the bedside. Discussed. Also spoke with Dr. Serna. Given patient has no other predisposing cardiac factors for the A-fib except acute illness. His LV function is normal. Left atrium is normal. He has already been loaded with IV amiodarone. Will switch him to oral Lopressor 12.5 twice daily. Hence will DC amiodarone. Patient yesterday had wheezing was put on bronchodilators steroids per pulmonary. November 17: Propped up in bed. NG tube was discontinued. Sinus rhythm. Remains NPO. Getting G-tube feeding at 40 cc an hour. Dietitian following. Get arrangements done for DC home tomorrow including tube feeding. Increase activity discussed with patient and elder daughter at the bedside. Still requiring oxygen. Incentive spirometry. November 18: Patient up in recliner. Earlier today spoke to social professionals David. Informed patient is rather weak and will be going to the [facility]. Looking at authorization. Denae came to the room and spoke to patient his and his daughter. They are very keen to take the patient home as 3 daughters all nurses and they will take care of him at home. Patient earlier today to abdominal cramping and some loose stools.'s tube feeding was held. Told the nurse to start back at the rate of 40 cc an hour. He was before the getting it at 55 cc an hour. Incentive spirometry was again emphasized. Patient remains on 4 L of oxygen. November 19: I saw the patient this morning. Hence I am in the evening. Morning was sitting with his sons. Has some edema. Lungs had crackles I gave him 40 mg of Lasix. He did make good urine. Tube feeding was held from the p revious evening of because of abdominal cramping. Acute abdominal series showed nonspecific bowel gas pattern and SBO to be ruled out. Family and patient was updated. Told him discharge will depend on day by day. Later this afternoon CT scanAnd abdomen pelvis done. Showed small bowel to be 3 point centimeter dilated. Some anasarca. Gastric findings. Gallstones. Later spoke to Dr. Irby from general surgery. They will further review and decide about further plan of action. Will give further dose of IV Lasix because of fluid overload from likely hypoalbuminemia and IV fluids previously received. Patient may take his pills by mouth. Total time spent today about 1 hour with over 40 minutes of discussion. Patient did state his breathing is better after Lasix this morning. November 20: Saw the patient this morning. was present. Patient received 2 more doses of Lasix. Diuresed well. Breathing much better. Lungs are sounding better. Discussed with Dr. Zepeda other surgeon. He is taking 3 cc out of the balloon and the gastrostomy tube. Started trickle feeding at 5 cc an hour. Will see how this does. Later in the day ran into the and the daughter again. Did update them on the same. Dilaudid was discontinued yesterday but morphine was ordered by surgery for patient having pain. Concerns about GI issues with that we will DC the morphine. As family does not want the same. November 21: Patient reclining bed. Tired. Several family members at the bedside. Including his and eldest daughter. Patient started on trickle feed yesterday at 5 cc an hour. This morning he has been on 10 cc an hour. Still having some loose stools. C. difficile was ordered. Patient on 2 L of nasal cannula. Has diuresed well. Will give an additional dose of Lasix today. If C. difficile is negative and the diarrhea is from the tube feedings we may have to use a fecal management system to keep him comfortable. Otherwise patient remains NPO. Dietitian is following the patient. Care was discussed length with patient the and daughter at the bedside. Questions answered. Liquid Tylenol has been added for abdominal pain. Avoid narcotics. Elevated white count likely from Solu-Medrol 11/23/2023--patient was feeling better today. Multiple family member at bedside. No issues overnight. Normal saline at 10 cc an hour, tube feeding at 20 cc an hour, remains on Zosyn, on 3 L oxygen. Afebrile. Heart rate 62, respiratory rate 16, blood pressure 114/67, saturating 91% on 3 L. WBCs 14.5, 9.7 hemoglobin. Platelet 242. BMP is unremarkable. Pulmonary and general surgery following. General surgery recommended to continue tube feeds at 20 cc/h. 11/24/2023--patient reported significant abdominal discomfort, also noted to have leak around G-tube. General surgery is following, evaluated the patient at bedside, adjusted tube feeds. Also reported having diarrhea, on 2 L oxygen, went up to 5 L. Blood pressure was low, 500 mL fluid bolus with close monitoring of respiratory status ordered. Currently on DuoNebs, Solu-Medrol, will continue Zosyn. Chest x-ray showed a left lower lobe infiltrate. Abdominal x-ray showed multiple air-fluid levels. CT abdomen showed multiple dilated small bowel loops, consistent with obstruction, pneumoperitoneum, cholelithiasis and ascites. WBCs 14.1, platelet 255, hemoglobin 8.9. NG tube in place. Family at bedside. patient transferred to SICU for close monitoring. 11/25/23--patient is currently in the ICU, required Levophed overnight due to low blood pressure, low urine output with creatinine trending up. Nephrology following. Photographic Hand Developer also following. Patient remains n.p.o., NG tube in place, following NG tube insertion patient had total of 2 L output, J-tube was draining approximately 200 cc over last 8 hours, continues to have abdominal pain and abdominal tenderness. Patient on IV fluids. Currently on 4 L oxygen. WBCs 8.2, hemoglobin 12.3, platelet 188. Chest x-ray earlier today showed right sided port and a stable left lung airspace disease, NG tube in place. Patient currently on Zosyn, on IV Dilaudid for pain control, on IV Solu-Medrol. General surgery planning for OR today, started on TPN. 11/26/23--patient was seen and examined today. Patient is currently sedated, intubated on mechanical ventilation. Family at bedside. Patient underwent ex lap, abdominal washout, small bowel resection with new feeding jejunostomy tube placement yesterday, small bowel was noted to be perforated with significant contamination of abdominal cavity. Patient is currently on vancomycin and Zosyn. Creatinine went up to 2.85, nephrology following, recommended to continue IV fluids, avoid nephrotoxin Preserved EF on echocardiogram.. Patient currently on Levophed, vasopressin in the ICU for close monitoring. Patient is afebrile, heart rate 122, blood pressure 129/76, currently on mechanical ventilation, sedated. November 26: ICU. Intubated. FiO2 60 and a PEEP of 5. Drips include IV amiodarone. Heart rate was up early did get fired microgram of IV digoxin and 2.5 mg of IV Lopressor. Did drop her blood pressure bit. Urine output was low. Received 80 mg of IV Lasix. Ahmet to 150 cc. Other drips include IV propofol, vasopressin, Levophed. TPN was started yesterday. Antibiotics include IV Zosyn and vancomycin. Patient has a J-tube to drainage to gravity. Spoke to patient's younger daughter and at the bedside. Prognosis guarded. Continue current treatment plan. Chest x-ray shows right lower lobe consolidation. Small pleural effusion. November 27: ICU. Intubated. FiO2 55 and a PEEP of 5. Antibiotics include IV vancomycin. Drips include Levophed at a small dose, IV vasopressin, propofol, amiodarone. Patient converted to sinus rhythm this morning. Getting TPN and normal saline at 75 cc an hour. Urine output about 25 cc an hour. RAYA drain put out about 260 cc last 12 hours that is last rn social work. NG tube with bilious output. And also GI J-tube output to gravity. Spoke to patient's and daughter at the bedside. They understand patient still not out of the kee. Platelets have dropped-therefore probably Zosyn stopped. November 28: ICU. Intubated. FiO2 55 and a PEEP of 5. Patient is in sinus rhythm. Seen this morning. Due for dialysis catheter this afternoon. Urine output about 15 to 20 cc an hour. Patient is on IV Lasix 80 mg every 12. Saline is KVO. Drips include IV propofol vasopressin. Patient having significant output through the RAYA drain and the jejunostomy tube to drainage. Creatinine had been getting worse. Patient's at the bedside. Understands patient's remains critically ill. Hemoglobin is down to 7. Given that patient's pain hypotensive, and on vasopressin we will give a unit of blood with dialysis. Getting TPN antibiotic changed to IV meropenem November 29: ICU. Intubated. FiO2 55 and a PEEP of 5. Remains in sinus rhythm. Getting TPN. Dialyzed yesterday and this morning. About 1000 cc removed. Urine output about 50 cc an hour. Patient is on IV propofol. Off vasopressin. Still having significant output through the RAYA drain and jejunostomy tube. Patient received a second unit of blood yesterday. Patient's and daughter at the bedside. I did discuss guarded prognosis. Did asked them to revisit CODE STATUS.. Getting IV meropenem. November 30: ICU. Intubated. Did get a sedation holiday t today. Back on propofol. Getting TPN. Still getting IV Lasix. Fair urine output. Jejunostomy tube in last 8 hours was about 30 cc output. RAYA drain in the 8 hours had about 180 cc output. Telemetry shows sinus rhythm. NG tube has low intermittent suction with negative output. On the vent with FiO2 40 and a PEEP of 5. No hemodialysis today. Discussed with the and eldest daughter at the bedside. IV meropenem-patient's sputum had grown Citrobacter freundii and Pseudomonas aeruginosa. December 01: ICU. Intubated. Jejunostomy tube to gravity. Only 10 cc output in last 24 hours. RAYA drain. About 190 cc last 6 hours. Nasogastric tube to low intermittent suction. Minimal output. Patient is on a small dose of propofol 5 mics. Telemetry shows sinus rhythm. Patient started on small dose of Cleviprex this morning. Blood pressure. Getting TPN. FiO2 35 and PEEP of 5. Discussed with the at the bedside. Hemodialysis today December 02: ICU. Patient remains intubated. FiO2 35 PEEP of 5. Patient is on IV propofol. IV Cleviprex was discontinued yesterday. Also remains on TPN. Telemetry shows sinus rhythm. NG tube is good no output. Still significant output through the RAYA drain. Jejunostomy tube has minimal output. Patient had hemodialysis today 2 L of fluid was removed. Oral half liters yesterday. Patient getting a sedation holiday. General Surgery started the patient on trickle feeding at 10 cc an hour. I did speak to patient's at the bedside. Prognosis remains guarded but there is some improvement. December 03: ICU. Intubated. FiO2 35 PEEP of 5. Drips include IV propofol and Precedex. Getting TPN. Telemetry shows sinus rhythm. Remains on IV Lasix 80 mg twice a day. IV meropenem. Because patient gets easily agitated when transitioning off propofol he has been switched over to Precedex. For hemodialysis today. December 04: ICU. Intubated. FiO2 35 and a PEEP of 5. Patient been taken off propofol is on Precedex. Telemetry sinus rhythm. J-tube with minimal output. RAYA drain with decreased output. NG tube to suction minimal output. Family wanted to hold off trickle feeding until cleared by oncology. Which he did today. Trickle feeding will be started today. Spoke to patient's and one of the daughters at the bedside. Dr. Russ is spoken to the earlier this point they want to do further tracheostomy tube. October 4: ICU. Intubated. FiO2 35 PEEP of 5. Patient remains on Precedex and PPN. Patient's dialysis catheter was not functioning is getting another [address] Bobby this afternoon. Remains on IV meropenem. Has a RAYA drain in the jejunostomy tube to gravity. NG tube to low intermittent suction. No family at the bedside. December 06: ICU. Intubated. FiO2 35 PEEP of 5. RAYA drain putting out about approximately 120 cc per shift. Patient on IV Precedex. FiO2 35 PEEP of 5. Telemetry-sinus rhythm. Patient occasionally been put on small dose of Levophed specially for hemodialysis getting it today. Also started on midodrine for low blood pressure. Tolerating tube feeding at 10 cc an hour. Also had a bowel movement. Mentation has not improved. Even with sedation holiday. Neurology consulted. CT brain shows no acute process. December 07: ICU. Intubated. FiO2 35 PEEP of 5. Telemetry-sinus rhythm. NG tube to suction low intermittent minimal output. Getting TPN. Tube feeding at 20 cc an hour. RAYA drain averaging over 100 cc per shift. Remains on Precedex. EEG was done today. Discussed with at the bedside. Family is currently not inclined for tracheostomy tube today. Day 13 of being intubated December 08: ICU. Intubated. FiO2 35 PEEP of 5. Patient is put on back on propofol per track supervisor Dr. JIMENEZ. EEG did show some potential for spikes was put on Keppra by neurology. Telemetry shows sinus rhythm. NG tube to suction with no output. Tube feeding was put on hold because of questionable discharge on the site. Being restarted today. RAYA drain is 150 cc last 12-hour shift. Patient does open eyes. Family has decided to proceed with tracheostomy and surgery has been consulted for the same. Spoke to the at the bedside. For hemodialysis today. December 09: ICU. Intubated FiO2 35 PEEP of 5. Patient seen this morning. Pending tracheostomy placement this afternoon. Remains NPO. G-tube feeding was held overnight. RAYA drain putting out about 100 cc per shift. Received a unit of blood for hemoglobin of 6.6. On 25 mics of propofol. Getting TPN and meropenem. Spoke to the at the bedside. Patient became hypotensive with dialysis yesterday. Levophed had to be given. Only 800 cc were removed yesterday. No hemodialysis today. December 10: ICU . FiO2 35, PEEP 5. Tracheostomy was done yesterday by Dr. Ewing. G-tube feeding was started today at 10 cc an hour. Dietitian following. RAYA drain 12-hour shift overnight put out about 30 cc. Patient hemodialysis today about 1 L removed. Patient has a sacral stage II decub with a dressing. On propofol 20 mics. Spoke to at the bedside. TPN. Meropenem was discontinued yesterday. December 11: ICU. FiO2 35 PEEP of 5. Tracheostomy. NG tube was discontinued. No hemodialysis today. Telemetry shows sinus rhythm. J-tube feeding at 40 cc an hour. TPN was discontinued. Patient has been off propofol also. PICC line in place. Patient had a EEG done today. Spoke to patient's elder daughter at the bedside. May open eyes occasionally. Not really following commands December 12: 73-year-old white male with history of chronic abdominal pain for the last 8 months has been treated with Protonix 40 mg daily for the last 3 months with no improvement. Patient had a 22 pound weight loss in the last [address] of the abdomen and pelvis 3 weeks ago showed thickening of the antral wall with pathological adenopathy posterior to the stomach suspicious of neoplasm. Today the patient underwent elective upper endoscopy to evaluate further, patient received IV sedation by anesthesia endoscope was inserted into the mouth, esophagus was intubated without any difficulty there was evidence of large amount of liquid and solid food noted in the stomach suggestive of gastric outlet obstruction. Scope could not be advanced through the pylorus, however in the prepyloric area there was a large superficial ulceration identified with multiple biopsies were done from this area. The body cardia and fundus could not adequately visualize because of large amount of retained food in the s tomach. Scope was withdrawn back to the stomach and upon careful examination the mucosa of the antrum body and cardia as well as the fundus appeared normal. Procedure was being performed and biopsies were done patient threw up and subsequently became hypoxic there was clearly evidence of witnessed aspiration anesthesia intubated the patient, procedure was terminated, and the patient was transferred to the ICU, this consult was initiated. Patient is now on assist- control rate of 20 tidal volume 500 FiO2 70% PEEP of 10 ABG is pending, earlier ABG showed profound hypoxia patient is on propofol at 50 mcg/kg/min, next ABG is pending. Chest x-ray showed chronic changes without evidence of acute pulmonary disease. 12/14/2023 Patient remains in the ICU, generally weak Patient s/p tracheostomy G-tube in place Patient still has fever and mild tachycardia but tachycardia is improving, leukocytosis improving as well. Hemoglobin 8.1. Creatinine 3.0 and nephrology team on the case. He has mild transaminitis. He was getting Zosyn which is held now, nowCalcitonin is pending 12/14 Patient shon in the ICU, he is still encephalopathic and does not follow command. Neurology service following closely. He is status post tracheostomy. Also J-tube His abdomen looks soft and on exam he has mild coarse secretions. Has a Abarca catheter with clear urine His pro- Calcitonin is still high but trending down 3.0 down to 1.9 No fever this morning WBC slightly less at 16.3 Patient currently off antibiotic He is getting steroids IV Solu-Medrol which might contribute to his leukocytosis. Also he is on IV Keppra by neurologist 12/14 Patient remains confused in the ICU calm, he had a good night per family member and staff. Tracheostomy in place Patient has occasional coughing spells, patient also developed some partial wound dehiscence in his abdomen, surgery team are aware and are going to evaluate the patient Patient also has positive blood culture from 12/13: Gram-positive cocci in clusters. Patient received one-time dose of IV vancomycin. Patient also had fever 2 days ago, leukocytosis and total elevated pro- Calcitonin. Therefore we are going to consult infectious disease team. As his antibiotic Zosyn was stopped few days ago. Currently patient KVO He has good urine output December 16: ICU. Trach. Congested. Requiring suctioning. No hemodialysis today. Getting G-tube feeding at 50 cc an hour. FiO2 30 and a PEEP of 5. On IV Precedex. Eyes open. Does follow commands. Weakness in the limbs. Spoke to at the bedside. Sputum positive for Klebsiella oxytoca and Pseudomonas aeruginosa. December 17: ICU. On trach. Currently cough with increased secretions requiring suctioning. Adding scopolamine patch. Very much clear secretion. CT scan is showing right upper lobe lung abscess. G-tube feeding at 50 cc an hour. Hemodialysis today. RAYA drain putting out about 140 cc a shift. Serous. Has been midline incision wound dehiscence. Wound VAC was placed on it. Stage II ulcer. Patient is on Precedex drip 0.15 mics. Urine output is good about 6200 cc an hour. Spoke to the at the bedside. Patient currently not stable for transfer to LTAC. No limb movements. PT OT on the case. otherwise awake does follow simple commands by face December 18: ICU. Patient seen this afternoon. Because of pain getting IV Dilaudid. No nasal cannula on room air. Does move about his head. Telemetry shows sinus rhythm. FiO2 30 and a PEEP of 5. Patient started on scopolamine patch yesterday has decreased secretions today. Good urine output. Tube feeding at 60 cc an hour. Wound VAC on incisional would be high since in place. RAYA drain continues to make output. No hemodialysis today December 19: ICU. Patient was seen earlier today. FiO2 30 and a PEEP of 5. Sinus rhythm. Awake. Does follow with eyes. Tube feeding got obstructed tube feedings held for now. Increasing oozing from the incision drainage site. at the bedside. Wound VAC remains in place. Good urine output. Dialysis held today. December 20: ICU. Per nephrology no dialysis today. 1 L fluid bolus given. J- tube was replaced over the wire by Dr. Ewing from surgery. On Precedex 0.6 mcg. FiO2 30 and a PEEP of 5 on the vent. RAYA drain putting out of around 100 cc per shift. at the bedside. Drainage through the abdominal incision wound. CT scan abdomen showed tube placement in the small bowel. Stable large right lower quadrant mass with a fluid level. December 21: ICU. No dialysis today. Patient started on trickle feeding through the J-tube yesterday. He started leaking around the J-tube site. Tube feeding was held. Dressings were placed. Wound VAC remains on the incision. Still having output through the RAYA drain. Patient remains on Precedex 0.4 mcg. FiO2 30 and a PEEP of 5. Sinus rhythm. at the bedside. December 22: ICU. Patient was seen this morning today by me. No dialysis today. Patient's and daughter at the bedside. FiO2 30 and a PEEP of 5. Sinus rhythm. Still having significant secretions through the tracheostomy tube. On Precedex 0.4 mcg. Getting D5W IV fluids. Tube feeding remains to be on hold since yesterday. Still output of RAYA drain. Awaiting input from surgery. Discussed with the and daughter. December 23: ICU. Saw the patient this afternoon. Because of good output of urine dialysis has been discontinued. Telemetry shows sinus rhythm. FiO2 30 and a PEEP of 5. RAYA output has been around 8200 cc an hour. Good urine output. Patient does have very slight movement of the limbs. Wound VAC is putting out about 20 cc per shift. Yesterday when trickle feeding was started patient's J- tube drainage also started leaking around the insertion site. Tube feeding was held. Patient remains on IV Zosyn and Precedex at 0.3 mcg. I had a very lengthy discussion with patient's daughter and at the bedside overall guarded prognosis. Later surgery spoke to the family, and then the nurse called me that family was wanting transferred to [facility]. I spoke to Dr. Irby. They felt they could not offer anything more at this point. I did call the [facility] transfer production team leader. Gave them the reason for transfer. Later in the ICU nurse informed me through [employer] that [facility] had declined the transfer. Total time spent today about 50 minutes with over 30 minutes of discussion. December 24: ICU. Patient is doing not too well. Sinus rhythm. Drips include norepinephrine and IV propofol. Surgery did put 2 stitches around the J-tube insertion site. Started on TPN today. FiO2 30 PEEP of 5. Patient became hypothermic put on a Manjit hugger. Also hypoglycemic. Decreased urine output. IV fluids increased. Patient's son was at the bedside. I did speak to patient's eldest daughter outside in the waiting room. Did tell the patient doing very poorly. I did try to call the on the phone number she has gone home. Started an IV antifungal today. December 26, 2023 73-year-old white male with history of chronic abdominal pain for the last 8 months has been treated with Protonix 40 mg daily for the last 3 months with no improvement. Patient had a 22 pound weight loss in the last [address] of the abdomen and pelvis 3 weeks ago showed thickening of the antral wall with pathological adenopathy posterior to the stomach suspicious of neoplasm. Today the patient underwent elective upper endoscopy to evaluate further, patient received IV sedation by anesthesia endoscope was inserted into the mouth, esophagus was intubated without any difficulty there was evidence of large amount of liquid and solid food noted in the stomach suggestive of gastric outlet obstruction. Scope could not be advanced through the pylorus, however in the prepyloric area there was a large superficial ulceration identified with multiple biopsies were done from this area. The body cardia and fundus could not adequately visualize because of large amount of retained food in the stomach. Scope was withdrawn back to the stomach and upon careful examination the mucosa of the antrum body and cardia as well as the fundus appeared normal. Procedure was being performed and biopsies were done patient threw up and subsequently became hypoxic there was clearly evidence of witnessed aspiration anesthesia intubated the patient, procedure was terminated, and the patient was transferred to the ICU, this consult was initiated. Patient is now on assist- control rate of 20 tidal volume 500 FiO2 70% PEEP of 10 ABG is pending, earlier ABG showed profound hypoxia patient is on propofol at 50 mcg/kg/min, next ABG is pending. Chest x-ray showed chronic changes without evidence of acute pulmonary disease. 12/27/2023 Patient is seen and evaluated with family at bedside; remains in the ICU intubated and mechanically ventilated. - ABG showed a pO2 of 99 pCO2 31 pH of 7.44. -- Remains on Eraxis daptomycin and Zosyn patient is intermittently requiring Dilaudid, Ativan does not seem to help his agitation and restlessness. -- Continues to have leakage around the jejunostomy tube, and patient is undergoing the J-tube exchange today. Family is at bedside, seems to be quite anxious about his overall condition, and I explained to the that we are doing the best we can considering his critical illness situation and critical illness polyneuropathy. Patient is profoundly weak, and weaning the patient from mechanical ventilation is almost impossible. At least not at this point yet WBC count is 10.9 hemoglobin is 8.1 basic metabolic profile is normal BUN is 46 creatinine 1.90 patient has been off hemodialysis since the . Chest x- ray continues to show stable findings with right upper lobe opacity and right lower lobe opacity and possibly a small right-sided pleural effusion ----Continue ventilatory support, now on IMV mode rate of 16 with pressure support of 14 Continue Precedex and use Dilaudid 0.5 mg every 2-3 hours as needed. Nutritional support patient is now on TPN, Possible J-tube changed today for J- tube malfunction Continue antibiotics including daptomycin and Zosyn, Eraxis was added by infectious disease 12/28/2023 the patient is seen and evaluated in room at bedside; continues to be afebrile, the patient is on the ventilator through the trach FiO2 is currently stable at 30% no significant pleural effusion clinically patient on requiring any pressor support still having drainage around his jejunostomy tube patient dialysis catheter has been discontinued. Patient white count normalized to 7.6, creatinine is 1.51 patient with pneumonia with a sputum showing Citrobacter and Pseudomonas aeruginosa, the patient sputum repeat is still growing Citrobacter and Pseudomonas sensitive to the Pseudomonas is pending continue with Zosyn -patient did have a positive blood culture with staph epi that was oxacillin resistant as the patient did have a PICC line and the dialysis catheter he is on daptomycin repeat blood culture currently growing oxacillin sensitive staph epi, the patient dialysis catheter has been discontinued Has been sent for the culture -patient also have significant excoriation around his jejunostomy tube site which is still leaking Eraxis was added which will be continued as the patient fever pattern has improved and the patient white count has normalized once again discussed with the nursing staff to apply Triad cream which was discussed yesterday but not applied and monitor clinical course closely 12/29/2023 Patient is seen and evaluated with family members at bedside; remains intubated and mechanically ventilated -- ABG showed a pO2 of 105 pCO2 31 pH of 7.45. Remains on Precedex; multiple antibiotics and antifungal including Eraxis daptomycin and Zosyn. -- chest x-ray is showing improvement in his right upper lobe airspace disease/pulmonary abscess. Right lower lobe seems about the same with chronic opacity and possibly some small right-sided pleural effusion. --Family is at bedside, patient is arousable but does not follow any instructions. Gets extremely restless and agitated easily hence patient is receiving Dilaudid which seems to be working much better for this patient than benzodiazepines --possibly transfer the patient to a select care specialty. 12/30/2023 Evaluated in follow-up in the intensive care unit. He remains on the mechanical ventilator. Status post tracheostomy. There has been a decrease in the amount of leakage around the J-tube site he continues on a gravity flow. TPN is infusing tube feedings remain on hold at this time. No bowel movement reported for the last 5 days. X-ray today reveals extensive pleural parenchymal opacities throughout the right with at least a moderate pleural effusion. Mild patchy densities left mid and lower lung are also similar. Blood work reveals a white blood cell count 11.5, hemoglobin 8.1, platelet count of 78, sodium 142, potassium 4.2, BUN of 42, creatinine of 1.22, Phos of 2.3, magnesium 1.9. Patient continues on IV anidulafungin IV Zerbaxa IV daptomycin. Patient is currently sedated with propofol and also Precedex which is currently on hold at this time. December 31, 2023: ICU. Patient continues to do poorly. On propofol 35 mics. Also getting IV Dilaudid and IV Ativan.. Telemetry shows sinus rhythm. J-tube feeding has been discontinued. Significant output through the Abarca bag and around the G-tube site. Patient also putting out through the RAYA drain on the right side. Getting TPN and lipids. Patient is antimicrobial include iv aniedulefungin, IV ceftolozane/tazobactam, IV daptomycin Advance care planning [October 31, 2023] I met with patient's at the bedside. Went through in detail with patient is overall very poor clinical status. Chances of any meaningful recovery next to minimal. I also did mention that patient in my opinion was not stable to go to chronic ventilator setting. I suggested comfort care/hospice. I did not feel and why all honesty that patient is benefiting any further from the treatment we are giving him in fact causing probably more suffering. I also spoke to patient's daughter outside in the waiting room. Total time spent about 50 minutes with over 30 minutes of discussion. Later I called Dr. Luther JIMENEZ the track supervisor after he received a text that family was expressing that some physician expressed he was doing better and giving hope. I spoke to nurse Lemos in the evening and she and Dr. JIMENEZ did go and talk to patient's family at the bedside later. January 01, 2024: ICU. FiO2 30 and a PEEP of 5. Continues to have increased drainage at the G-tube site. Wound VAC in place over the incision. RAYA drain continues to put out excretions. Good urine output. Drips include IV propofol at 20 mics, also getting IV Ativan and Dilaudid. Patient also keeping getting TPN lipids. Spoke to the patient's at the bedside. No further questions. I did speak to Dr. Irby from general surgery. Hence it is both our impression again that changing the tube will not make any difference to the bigger picture. And probably futile. Dr. Irby will be speaking to the family today. David from social professionals did ask about of family meeting. I did reiterate that I spoken at length to the a few times and also the daughter. Dr. Jimenez also spoke to the and Dr. Irby will be speaking with the today. Prognosis remains to be very poor. I did tell the in my opinion probably the patient is not r a candidate for long-term facility. Will track supervisor Dr. Jimenez determine if the patient is a candidate for long-term chronic ventilator facility. January 02, 2024: ICU. FiO2 30 PEEP of 5. Telemetry sinus rhythm. Drips include propofol at 20 mics. Patient getting TPN lipids. Receiving 1 unit of packed red blood cell. Patient was having a breakdown around the tracheostomy stoma site. With a cuff leak. G-tube site is continues to have increasing output. Wound VAC in place. RAYA drains also having increasing output. Patient sister and daughter from [place] from out of town. Earlier they spoke at length with Dr. alford from general surgery. Prognosis remains poor. January 03, 2024: ICU. FiO2 30 PEEP of 5. On propofol. 50 mics. Getting TPN lipids. Sinus rhythm. Wound VAC in place. Drainage around the j-tube site. RAYA drain continues to drain. Patient somewhat sedated. at the bedside. Later social professionals David inform me that the surgical team Dr. Irby has suggested possible you have [facility], to which family is trying to obtain transferred to. Per Dr. Jimenez note patient has been decline by long-term care twice. Prognosis remains poor. at the bedside. Had no questions. Brother Nathan is present. January 04, 2024: ICU. FiO2 30 PEEP of 5. Propofol was held this morning. Getting TPN lipids. Sinus rhythm. Wound VAC remains in place. Continues to have drainage around the J-tube. RAYA drain continues to have output. at the bedside. She had no questions. Antibiotics in place. January 05, 2024: ICU. FiO2 30 PEEP of 5. Audibly sounding congested. Getting TPN lipids. Sinus rhythm. Wound VAC in place. Drainage around J-tube site. RAYA output continues. No family at bedside. Getting antibiotics. Lethargic January 06, 2024: ICU. FiO2 30 PEEP of 5. Patient is been off propofol since yesterday. Does move his head about. Try to open his eyes sometimes. Sinus rhythm. Blood pressure is running high yesterday. Started on Cleviprex. Hydralazine is being added. Continue to get TPN lipids. J-tube site remains excoriated. Wound VAC in place. RAYA output about 40 to 50 cc is a 12-hour shift. Patient elder daughter at the bedside. Eraxis was discontinued on January 02. Daptomycin is being discontinued by ID. Continue ceftolo'szone. CT abdomen pelvis done today: 3.1 cm organized fluid collection within the rectovesicular space concerning for abscess. No change in right upper lung 4.9 cm fluid collection with a fluid level. For possible pulmonary abscess. Moderate size right lung base multiloculated hydropneumothorax possibly abscess. Additional areas of air bronchograms. January 07, 2024: ICU. FiO2 30 PEEP of 5. Patient was taken down for pigtail drainage of the right lung abscess. About 200 cc of pus was obtained. Nurse informed me when they told him about for the procedure a lot of pus gushed out from the tracheostomy site. Dr. Love at the bedside did a bronchoscopy. Some pus was aspirated. No obvious fistula was noted. Patient is being back on Cleviprex drip. TPN lipids. January 08, 2024: ICU. Patient was having severe bouts of coughing. Unable to maintain ventilation. Patient was put on Nimbex drip and propofol drip. TPN lipids continue. Has a right chest wall pigtail catheter 90 cc output in 12- hour shift. Drainage from around the J-tube site. RAYA drain continues Ahmet to have an output. Abdominal wound is high since with the wound VAC in place. Patient sedated. January 09, 2024: ICU. Patient is off propofol and Cleviprex. Does open eyes. RAYA drain. About 40 cc last 24 hours. J-tube site continues to have increased output. Requiring dressing change every so often. Wound VAC in place. Patient getting Dilaudid and Ativan. Telemetry shows sinus rhythm. 40 cc out of the pigtail drainage. Patient started on ciprofloxacin and tobramycin. Remains on TPN and lipids. Patient's eldest daughter and at the bedside. No new questions. January 10, 2024: ICU. Overnight patient had become asynchronous. Had to be put on Precedex drip. Hemoglobin dropped down to 6.6. Monitor blood ordered. RAYA output about 100 cc last 24 hours. Wound VAC remains in place. TPN lipid continues. Patient also has a leak in the right pigtail catheter. Sinus rhythm. Continues to have increased secretion at the G-tube site. Ventilator FiO2 30 and a PEEP of 5. at the bedside. Had no further questions. January 11, 2024: ICU. Patient remains on IV Precedex. TPN.'s RAYA output over 30 cc last 24 hours. Wound VAC remains in place. Sinus rhythm. FiO2 30 PEEP of 5. Pigtail with very little output. Spoke to Dr. Love who only spoke to the patient's at length. Gnosis poor. When I walked in patient's 2 daughters and the present. is very tearful crying hugging the patient. The daughter had no further questions January 12, 2024 Ahmet: ICU. Continues on IV Precedex. Getting TPN lipids. Wound VAC in place. Sensitive. FiO2 30 and a PEEP of 5. Patient's at the bedside. Had no questions. January 13, 2024: ICU. FiO2 30 PEEP of 5. Remains on Precedex 0.8 mg. Eyes open. Sometimes does track with head. Not moving limbs. Some decrease in output from the G-tube site. Wound VAC putting out about 100 cc every 12 hours. RAYA drain about 100 cc every [address] Russ met with the family earlier today. Patient's been made DNR. Telemetry sinus rhythm. Patient's and daughter at bedside. They have no questions January 14, 2024: ICU. FiO2 30. PEEP of 5. Patient is has eyes open and tracking. Urine output about 100 cc an hour. NG site output looks like gastric contents. RAYA site about 50 cc in the last 12 hours. Telemetry sinus rhythm. and daughter have asked for hospice consultation for informational visit. They want to use [facility]. I sat with them and the nurse and a full expression of the hospice involved involved. Several questions answered. Daughter does express that she would like to take the patient home. The other sibling will be coming on from [place] on Saturday. They want to hold on at least until then. January 15, 2024: ICU. FiO2 30 and a PEEP of 5. Getting CPAP today. Asynchronous better. J-tube site continues to have increase secretions. Sinus rhythm. Awake. Does move his head possibly to command. Remains on Precedex. Getting Dilaudid. Fair urine output. Has a air leak in the pigtail. Minimal output through the chest tube. RAYA drain continues to have an output. at the bedside. January 16, 2024: ICU. On the ventilator FiO2 30 and a PEEP of 5. Pressure support mode. Wound VAC remains in place. J-tube site continues to have output. RAYA drain putting out output. Remains on pressors Precedex and getting Dilaudid. Antibiotics per ID. Patient being planned to go home tomorrow with home hospice. at the bedside. Had no further questions. Being followed by social professionals David and [facility] The plan for tomorrow currently is as follows: -Hospice arranging for transport with portable ventilator, to home with family -Antibiotics as discussed with ID will be discontinued -Wound VAC to be removed prior to discharge per surgery -RAYA drain to remain in place with dressing changes at the J-tube site. Dressing changes at the incision site per surgery. -TPN lipids will be discontinued prior to discharge -Patient to be taken off Precedex by r track supervisor January 21, 2024: ICU. Ventilator FiO2 30 and a PEEP of 5. Precedex drip. Sinus rhythm. Does wake up and follow commands. Weak in the limbs. Very little output through the RAYA drain. Wound VAC in place. Requiring Dilaudid for pain control close to every 2 hours. Over the weekend patient and family dec ided not for hospice. Patient is now full code instructions. Looking at long- term placement. Patient on tobramycin and ciprofloxacin and Diflucan per ID. Patient and daughter at the bedside.. Physical therapy in the room for passive movements. Family being educated. Since yesterday patient has been on pressure support./CPAP. Getting TPN lipids. January 22, 2024: ICU. Patient was on CPAP this morning. Plan was to take him to trach only this afternoon. Getting IV Precedex. Awake. Moves his head to command. Was able to move his right arm. Wound VAC remains in place. Right c hest tube/pigtail catheter in place. Some air leak. Minimal output from the right RAYA drain. Secretions persist through the left J-tube site. at the bedside. Spoke to the social professionals David. Looking into long-term placement. 01/23/24 Patient is evaluated in the ICU at the bedside. Feels anxious today, precedex is being weaned. He is awake alert. He is edematous. Abdominal wound vac in place. Right chest tube/pigtail in place. 55 ML of drainage overnight. Right sided RAYA drain. J tube in place. On TPN. He is pending approval for select specialty vs. [facility]. Blood work today reveals a sodium level of 131. Continues on IV Ciprofloxacin/ IV fluconazole. 01/24/2024 Patient remains in the intensive care unit as remains at the bedside. He was weaned off the Precedex today did receive a dose of Ativan this morning however his mood has much improved. Abdominal wound VAC in place with evidence of purulent drainage in the canister. He has had 15 mL of drainage overnight from the right sided chest tube. J-tube remains in place. He continues on TPN. He continues on IV ciprofloxacin and IV fluconazole with plans for repeat abdominal pelvis CT today by infectious disease and consider discontinuation of antibiotics afterwards. Sodium level today is 130. Still pending approval for discharge to [facility] versus [facility]. 01/25/2024 Patient remains in the intensive care unit he continues off IV Precedex at this time. Continues with TPN. Repeat chest abdomen pelvis CT completed yesterday which shows a decrease seen in the hydropneumothorax within the right lung base with drainage catheter there is no change in the bibasilar infiltrates and small left effusion. There is interval development of a dilated small bowel loop in the mid abdomen consistent with either a focal ileus or partial obstruction. There are findings suggestive of acute diverticulitis of the sigmoid colon with a small pericolic phlegmon abscess however is decreasing in the interval from compared in the prior study from 3.4 cm to 3 cm. There is moderate anasarca and the peritoneal dialysis catheter and small bowel drainage tube unchanged in position. Blood work today reveals a white blood cell count of 20.1, hemoglobin 8.3, sodium 131, BUN of 21, creatinine 0.66, magnesium 1.7. He is on IV Cipro. IV Flagyl was added today by infectious disease. Was made a full code at request of family. 01/26/2024 Patient remains in the ICU. More awake alert and oriented today. He continues on the trach collar. Sounds less congested. Continues on IV cipro and IV flagyl. White blood cell count better today at 16.3. Hgb 7.2. Sodium 130, potassium 3.4. Continues on TPN. 01/27/2024 Patient is seen in follow-up continues to be in the ICU with multiple consultations following. Family at the bedside and patient is more awake although continues with bronchial congestion and frequent suctioning with the trach collar. Patient remains off Precedex. Patient continues on antibiotics for possible lung abscess that was positive for Pseudomonas with a persistent air leak. Minimal output of the pigtail catheter noted. FiO2 is 40% trach collar maintained on 10 L oxygen. Patient continues on TPN and will adjust accordingly per dietary and pharmacy. Overall prognosis remains extremely poor. Patient remains full code. Per nursing staff patient was denied from [facility] with case management/social work following. 01/28/2024 Patient is eval in follow-up today in the intensive care unit. He had an axillary temp 101.6 for this reason a septic protocol was done including urinalysis blood cultures and viral panel. He remains on IV cipro and IV flagyl. Airleak to the chest tube remains to suction. He continues on a trach collar 40% FiO2 with oxygen at 8 L. He continues on TPN and lipids adjustments per dietary and pharmacy. We are currently not using the J-tube for feedings at this time. He has a wound VAC in place to the midline abdominal incision. He is more awake alert and oriented and less agitated. Sodium level today is 133. Renal function is within normal limits. 01/29/2024 Patient is evaluated today in the ICU with family at the bedside. He continues to have elevated temps. He is more lethargic. White count 20.2 today. Septic work up started. Repeat urinalysis not overly suggesting of infection. Viral panel negative. Chest xray today reveals patchy and confluent bilateral airspace disease similar to slightly worsened. Right-sided pleural catheter demonstrated. There is similar small right pleural effusion. He was started on IV vancomyin, IV meropenem and IV metronidazole. The cipro has been discontinued. Lactic acid 2.3. Sodium 134, renal function normal. Hgb 7.6. Tube feedings remain on hold. Not safe to restart and he continues on TPN/Lipids. 01/30/2024 Patient evaluated today in follow up. Remains in the ICU. Underwent bronchoscopy and repair of a tear in the tracheostomy cuff. Deep sputum culture pending. Patient remains on the mechanical ventilator with ABGs today showing pH level of 0.33, pCO2 of 59, pO2 of 152, HCO3 of 41, total CO2 of 33, hemoglobin 6.6. Lactic acid has normalized. White blood cell count 19.3 today hemoglobin 7.3. Patient is continued on IV propofol as well as backs. Continues on antibiotics in the form of IV vancomycin, IV meropenem, IV metronidazole. Continues on TPN lipids. Chest xray improved throughout both lung ramirez with mild improved aeration at the right lung base. No pneumothorax present. Right-sided chest tube remains in place to suction. 01/31/2024 Patient evaluated today in follow up in the intensive care unit. Remains on the mechanical ventilator, 50% FiO2. Family at the bedside and hoping for extubation today. Continues on TPN/Lipids. Labs today reveal white blood cell count 15.4, hgb 7.0, platelet count 169. Sodium 136, potassium 5.4. BUN 29, creatinine 0.61. Chest xray today reveals ongoing multifocal patchy and confluent airspace disease. A small to moderate right pleural effusion may be slightly increased. Sputum culture from bronchoscopy continues to show pseudomonas. Chest tube remains in place. on IV vancomycin and IV meropenem. 02/01/2024 Evaluated today in follow-up in the intensive care unit. Patient remains on mechanical ventilator with a 50% FiO2. His repeat sputum cultures from the bronchoscopy continue to show Pseudomonas. He continues on IV vancomycin and IV meropenem infectious diseases following closely. He continues with a wound VAC to his midline abdominal incision. Per surgery they feel that the fistula from his J-tube is mature he is currently off of tube feedings at this time though continues on TPN lipids. White blood cell count today is 15.3, hemoglobin 7.2, sodium 140, potassium 5.0, BUN of 33, creatinine 0.59. 2.0 mL of drainage over the last couple days. His chest x-ray today reveals no change in the marked diffuse cardiopulmonary process including scattered interstitial and partially consolidative infiltrates and bilateral pleural effusions which remain unchanged as compared to prior. 02/02/2024 Patient is evaluated today in follow-up in the intensive care unit. Patient remains in the mechanical ventilator with an FiO2 of 50%. His repeat sputum cultures are showing Pseudomonas now with drug resistance Pseudomonas is susceptible to amikacin and tobramycin with intermediate susceptibility to Zosyn and gentamicin. Antibiotics have been adjusted to Tobramycin and IV zosyn. February 03, 2024: I resumed care of the patient today. ICU. I was away last week. Patient had a tracheostomy leak. Underwent a bronchoscopy. And went back on the ventilator. Currently FiO2 5040% and a PEEP of 5. Drips include Precedex. Also getting TPN lipids. Patient getting Dilaudid 0.5 mg every 3 hours. And also Toradol. Good urine output. Right-sided RAYA drain was removed on January 27. Chest tube drain has minimal output. Patient continues to leak from the left-sided G-tube site. Patient's abdomen is rather distended. Surgery will be evaluating the patient today. Patient's and daughter at the bedside. That questions regarding the abdomen will defer the same to surgical team. Patient is extremely high risk for any surgery. Spoke to David the case packer and sealer. As of now LTAC had declined the patient. Patient also has a stage III on the buttock. Patient has a Shiley #8 tracheostomy tube. Checks x- ray today shows extensive interstitial and patchy bilateral infiltrates. New prominent air density below the diaphragm no peritoneum was to be excluded. Patient's bronchoscopy results show multidrug-resistant Pseudomonas. Patient has been treated with Zosyn and tobramycin-currently getting both.. Patient is awake. Attempts to talk. Able to follow commands. February 04, 2024: ICU. and the daughter at the bedside. is rather tearful. Yesterday evening Dr. Irby from surgery said surgical intervention highly risky including poor outcome. Second opinion was obtained from Dr. Pompa this morning. Also recommended possible hospice. Dr. Russ from pulmonary also spoke to the family. Prognosis remains poor. CT scan abdomen yesterday during showed large pneumoperitoneum. NG tube to suction. On propofol. Patient sedated. Sinus rhythm. Right-sided chest tube remains in place. J-tube site to gravity drainage. Getting TPN lipids. I also suggested comfort measures. February 04: ICU. Saw the patient this morning. and assist at the bedside. Remains on propofol. IVs include TPN and liquids. Right chest tube remains in place. Left-sided J-tube to drainage to gravity. On the ventilator with FiO2 40 and a PEEP of 5. Lethargic but able to follow some commands. February 05: ICU. Patient remains on propofol. A bit lethargic. Does follow simple commands. Getting TPN lipids. Right chest tube in place. Left J-tube to drainage to gravity. On the ventilator FiO2 50%. I walked in the room Dr. Alford from surgery today. Talk to the family. Spoke to Dr. Russ, Dr. Jason Leonard all feel baby should be hospice comfort care. I did express this to the family including the and his daughter and sister at the bedside. They also had a patient's daughter on the phone. All the treatment seems to be futile. Will be extremely appropriate for the patient to be comfort cares measures. I have asked for a multidisciplinary meeting with the family tomorrow at [address] Montes, Dr. Russ, Dr. Alford and myself. Wound VAC in place. February 06: ICU. Patient was taken off propofol put on Precedex. Following commands. Getting TPN lipids. Right chest tube remains in place. Minimal output. Left-sided J-tube to drainage to gravity continues with output. Remains on the ventilator. Wound VAC. NG tube remains in place. FiO2 35 and PEEP of 5. Patient continues to get intermittent Lasix.Currently on IV tobramycin and IV Zosyn. Multiple disciplinary meeting was held at 11 AM in the ICU today. Meeting was requested by myself. People present in the room in the meeting included Dr. Alford from general surgery, Dr. Montes from ID, Dr. Russ from track supervisor, nurse Anitha, patient's , patient's eldest daughter, patient's brother and some other family members. Several questions were answered and all specialist gave the portion. Specifically: Dr. Montes from ID: No further change in antibiotic at present time. Per Dr. Alford: No surgical options patient extremely high risk from surgery and mood diabetes any benefit will be done. Per Dr. Russ: Will keep adjusting patient's vent settings in view of the tracheostomy. Patient just ask about taking the patient home with palliative care. Given patient's critical illness and the fact that this still wanted the patient to get better, sending her home is currently not an option in that case. February 07: ICU. Patient NG tube got pulled off. Had to be reinserted. Patient now on Precedex. Awake. Trying to speak. Patient's and daughter at the bedside. CT scan was ordered. states depending on the results they will decide about either to continued here or go home. Left J-tube remains nevaeh inage to gravity. Right chest tube remains in place. Wound VAC in place. TPN lipids continue. Active Medications Albuterol/Ipratropium (Ipratropium-Albuterol 3 Ml Neb) 3 ml INHALATION RT-QID NIRMAL Last Admin: 02/08/24 11:39 Dose: 3 ml Albuterol/Ipratropium (Ipratropium-Albuterol 3 Ml Neb) 3 ml INHALATION RT-Q2H PRN PRN Reason: Shortness Of Breath Or Wheezing Last Admin: 02/02/24 04:31 Dose: 3 ml Benzocaine (Benzocaine [place] 1 Can) 1 spray MUCOUS MEM TID PRN; Protocol PRN Reason: Mouth Irritation Bisacodyl (Bisacodyl 10 Mg Supp) 10 mg RECTAL DAILY NIRMAL Last Admin: 02/08/24 08:12 Dose: Not Given Dextrose/Water (Dextrose 50% Syringe 50 Ml) 25 ml IVP PER PROTOCOL PRN; Protocol PRN Reason: Hypoglycemia Last Admin: 01/03/24 06:18 Dose: 25 ml Dextrose/Water (Dextrose 50% Syringe 50 Ml) 50 ml IVP PER PROTOCOL PRN; Protocol PRN Reason: Hypoglycemia Last Admin: 12/25/23 18:03 Dose: 50 ml Hydralazine HCl (Hydralazine Hcl 20 Mg/Ml 1 Ml Vial) 10 mg IVP Q6HR PRN PRN Reason: SBP >140 Last Admin: 02/03/24 13:10 Dose: 10 mg Hydromorphone HCl (Hydromorphone 0.5 Mg/0.5 Ml Syringe) 0.5 mg IVP Q3HR PRN PRN Reason: Pain Last Admin: 02/08/24 14:10 Dose: 0.5 mg Piperacillin Sod/Tazobactam (Sod 3.375 gm/ Sodium Chloride) 100 mls @ 25 mls/hr IVPB Q8HR [facility]; Protocol Last Admin: 02/08/24 08:09 Dose: 25 mls/hr Propofol 1,000 mg/ IV Solution 100 mls @ 9.63 mls/hr IV .[id number] [facility]; Protocol Last Titration: 02/06/24 21:15 Dose: 0 mcg/kg/min, 0 mls/hr Tobramycin Sulfate 200 mg/ (Sodium Chloride) 105 mls @ 105 mls/hr IVPB Q36H NIRMAL Last Admin: 02/07/24 11:01 Dose: 105 mls/hr Dexmedetomidine HCl 400 mcg/ (IV Solution) 100 mls @ 5.375 mls/hr IV .[id number] [facility]; Protocol Last Admin: 02/08/24 14:10 Dose: 0.6 mcg/kg/hr, 16.125 mls/hr Sodium Acetate 50 meq/Magnesium Sulfate 1.5 gm/Potassium Phosphate 6 mmol/Sodium Chloride 72 meq/Calcium Gluconate 1.25 gm/Potassium Chloride 50 meq/Amino Acids/Dextrose 1,085.5 mls @ 65 mls/hr IV .BY DURATION [facility] Stop: 02/08/24 18:59 Sodium Acetate 50 meq/Magnesium Sulfate 1.5 gm/Potassium Phosphate 6 mmol/Sodium Chloride 72 meq/Calcium Gluconate 1.25 gm/Potassium Chloride 50 meq/Amino Acids/Dextrose 1,085.5 mls @ 65 mls/hr IV .BY DURATION [facility] Stop: 02/08/24 18:59 Last Admin: 02/08/24 02:08 Dose: 65 mls/hr Fat Emulsion Intravenous 250 (ml/ IV Solution) 250 mls @ 21 mls/hr IV TuSa [facility] Last Admin: 02/08/24 08:09 Dose: 21 mls/hr Sodium Acetate 50 meq/Magnesium Sulfate 1.5 gm/Potassium Phosphate 6 mmol/Sodium Chloride 72 meq/Calcium Gluconate 1.25 gm/Potassium Chloride 50 meq/Parenteral Vitamin Supplement 10 ml/ Zinc/Copper/Manganese/Selenium 1 ml/ Amino Acids/Dextrose 1,096.5 mls @ 65 mls/hr IV .BY DURATION [facility] Sodium Acetate 50 meq/Magnesium Sulfate 1.5 gm/Potassium Phosphate 6 mmol/Sodium Chloride 72 meq/Calcium Gluconate 1.25 gm/Potassium Chloride 50 meq/Amino Acids/Dextrose 1,085.5 mls @ 65 mls/hr IV .BY DURATION NIRMAL Insulin Aspart (Insulin Aspart (Novolog) 100 Unit/Ml Vial) 0 unit SQ 0000,0600,1200,1800 NIRMAL; Protocol Last Admin: 02/08/24 07:01 Dose: 2 unit Lidocaine HCl (Lidocaine 2% (Pf) 20 Mg/Ml 5 Ml Vial) 60 mg INHALATION Q6HR PRN PRN Reason: Dyspnea Last Admin: 02/01/24 00:29 Dose: 60 mg Lorazepam (Lorazepam 2 Mg/Ml Inj) 1 mg IV Q6HR PRN PRN Reason: Anxiety Last Admin: 02/07/24 00:36 Dose: 1 mg Miscellaneous Information (Phosphorus Replacement Protoco 1 Each Misc) 1 each MISCELLANE DAILY PRN; Protocol PRN Reason: Per Protocol Miscellaneous Information (Magnesium Replacement Protocol 1 Each Misc) 1 each MISCELLANE DAILY PRN; Protocol PRN Reason: Per Protocol Miscellaneous Information (Potassium Replacement Protocol 1 Each Misc) 1 each MISCELLANE DAILY PRN; Protocol PRN Reason: Per Protocol Multi-Ingred Cream/Lotion/Oil/Oint (Hydrophilic Cream 180 Gm Tube) 1 applic TOPICAL BID NIRMAL; Protocol Last Admin: 02/08/24 08:09 Dose: 1 applic Multi-Ingredient Ointment (Zinc Oxide 20% Oint 28.4 Gm Tube) 1 applic TOPICAL BID PRN; Protocol PRN Reason: Skin Irritation Naloxone HCl (Naloxone 0.4 Mg/Ml 1 Ml Vial) 0.2 mg IV Q2M PRN PRN Reason: Opioid Reversal Ondansetron HCl (Ondansetron 4 Mg/2 Ml Vial) 4 mg IVP Q6HR PRN PRN Reason: Nausea And Vomiting Last Admin: 01/23/24 17:28 Dose: 4 mg Pantoprazole Sodium (Pantoprazole 40 Mg/10 Ml Vial) 40 mg IVP BID NIRMAL Last Admin: 02/08/24 08:08 Dose: 40 mg Petrolatum (Zinc Oxide Paste (Z-Guard) 1 Applic) 1 applic TOPICAL BID NIRMAL; Protocol Last Admin: 02/08/24 08:10 Dose: 1 applic Past medical history to include: GERD Social history: . No smoking. Physical examination: VITAL SIGNS: 98.2, 92, 16, 171/92, 97% GENERAL: Eyes open. Attempts to talk EYES: Pupils equal. , tracking Conjunctiva edouard l. HEENT: External appearance of nose and ears normal, tracheostomy-. NG tube to intermittent suction NECK: JVD unable to assess; masses not palpable. HEART: First and second heart sounds are normal; edema, present LUNGS: Respiratory rate increased, decreased breath sounds right chest wall pigtail catheter ABDOMEN: Soft, some tenderness. Liver spleen not palpable, no masses palpable..jejunostomy tube-dressing in place, . RAYA drain. Incision with stitches with - wound VAC PSYCH: Unable to assess NEURO: Does lift his right arm. Attempts to talk INVESTIGATIONS, reviewed in the clinical context: CT abdomen pelvis [February 07]: Results in chart February 07: White count 14.9 hemoglobin 7.5 platelets 368 potassium 4 BUN [address] abdomen pelvis [February 02] massive pneumoperitoneum with possibly right lower quadrant large bowel and/or small bowel perforation. Hyperemia and wall thickening of the cecum and ascending colon. Sputum [January 21] Pseudomonas aeruginosa-multiple drug-resistant February 02: White count 16.5 hemoglobin 8.6 platelets 385 sodium 142 potassium 3.1 BUN 37 creatinine 0.65 January 21: White count 14.9 hemoglobin 7.9 platelets 399 potassium 3[address] abdomen pelvis [January 05]: 3.1 cm organized fluid collection within the rectovesicular space concerning for abscess. No change in right upper lung 4.9 cm fluid collection with a fluid level. For possible pulmonary abscess. Moderate size right lung base multiloculated hydropneumothorax possibly abscess. Additional areas of air bronchograms. January 05: White count 10.6 hemoglobin 7.6 platelets 111 sodium 137 potassium 3.5 BUN 44 creatinine 0.95 January 03: White count 13.4 hemoglobin 8.1 platelets 95 potassium 5.2 creatinine 1.1 albumin 1.8 Sputum culture [December 24] Citrobacter freundii, Pseudomonas aeruginosa Blood culture [December 24] Staphylococcus pettenkoferi December 24: White count 1.5 hemoglobin 8.2 platelets 106 potassium 3.8 BUN [address] chest abdomen without contrast [December 16] right upper lung cavitary lesion with air-fluid level in the posterior aspect and a larger cavitary lesion possibly within the lung parenchyma itself. Extending down towards the diaphragm additional airspace opacities in the left lung base. December 09: White count 26.1 hemoglobin 8.6 platelets 154 potassium 4.1 BUN 86 creatinine 3.31. Hemoglobin this morning was 6.6 prior to transfusion EEG-evidence of generalized cerebral dysfunction and sporadic intermittent higher amplitude sharply contoured waves mainly bifrontal. Showing cortical irritability. 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 Serosal fibrous adhesions. Viable margins. Sputum culture: [November 25]: Citrobacter freundii. Pseudomonas aeruginosa November 20: White count 14.4 hemoglobin 8.8 platelets 229 potassium 4.1 BUN [address] scan abdomen [November 19] possible small bowel obstruction Stool: C. difficile negative November 15: WBC 13 hemoglobin 7.7 platelets 248 potassium 4.3 creatinine 0.87 2D echo: EF 55 to 60%. Kidneys bladder: Unremarkable November 13: White count 12 hemoglobin 6.9 platelets 276 potassium 4.4 creatinine 1.21 magnesium 1.8 iron 6 TIBC 365% saturation 1.64 transferrin 261 ferritin 34.6 B12 569 folate 4.4 November 11: Creatinine 0.86 EGD: Large amount of retained solid liquid food noted in the stomach. Large superficial gastric antral ulceration involving most of the antrum extending into the pylorus causing pyloric stenosis. Biopsies were obtained. Chest x-ray film personally reviewed by me-scattered infiltrates Assessment plan: -Aspiration and gram-negative bacterial pneumonia a bilateral initially from retained gastric contents mostly food and liquids, causing acute hypoxic respiratory failure: On presentation: Subsequent bacterial pneumonia and lung abscess sputum culture November 25: Citrobacter freundii, Pseudomonas aeruginosa. December 13: Klebsiella oxytoca, Pseudomonas aeruginosa. December 29: Multidrug-resistant Pseudomonas aeruginosa IV meropenem-, IV Zosyn.IV ceftolozane/tazobactam, IV daptomycin, tobramycin- all discontinued Currently getting IV Zosyn and tobramycin -Large pneumoperitoneum likely from perforation. Has been told by Dr. Peñaloza and Dr. Pompa from surgery/[second opinion]. Extremely high risk for any surgery. Very poor outcome. -Intermittent asynchronous with the ventilator. -January 28 patient underwent tracheostomy tube exchange and bronchoscopy with lavage by Dr. Love for a leak around the tracheostomy tube. Patient is a #8 Shiley tracheostomy tube. An air leak was resolved Previously had a leak. Currently resolved -Pain, multifactorial Getting Dilaudid as needed with Toradol -Sepsis with septicemia from above Patient received multiple antibiotics -Right l lung abscess, pigtail catheter placed January 07, 2024.: Slow to respond Initially about 200 cc of pus obtained. During the procedure large amount of pus poured out of the tracheostomy site when patient was rolled on the left side. Status post bronchoscopy with some lavage on 01/07/2024 - lung abscess larger 1 on the right side-patient cultures are growing Pseudomonas and Klebsiella oxytoca: , Received other antibiotics. Currently on Zosyn and tobramycin -Acute pulmonary edema and fluid overload from hypoalbuminemic state and fluids from IV.:: Has been getting Lasix and dialysis: Both held -Altered mentation. Possibly encephalopathy. Could be delirium.: Improvement CT brain [December 06] nothing acute Neurology following EEG-evidence of generalized cerebral dysfunction and sporadic intermittent higher amplitude sharply contoured waves mainly bifrontal. Showing cortical irritability. Keppra was started on December 07 -Critical care poly- Pedro neuropathy: Slow to respond PT OT -Gallstones, asymptomatic -Small l bowel perforation at site of jejunostomy tube tip with balloon..: Portion of small bowel resected. On November 24. New J-tube was placed.- drainage to gravity:-Now discontinued December 19: J-tube blocked. J-tube replaced on December 20 over wire December 21: Leaking around the J-tube site. Feeding held December 23: J feeding was started yesterday evening but again started leaking increasingly around the J-tube site-feeding held again December 24: J-tube feeding has been held. Patient is currently having increased drainage from the J-tube site -Acute kidney injury. Possible ATN from hypotensive shock: Resolved Renal ultrasound unremarkable. Started on renal replacement therapy on November 28. Last hemodialysis on December 17. Being followed by an nephrology. Good urine output. -Nutrition Jejunostomy tube placed November [address] Ewing Received TPN-this was discontinued. TPN lipids restarted on December 24 -Midline abdominal incision wound dehiscence Wound VAC in place -Acute recurrent atrial fibrillation-converted to sinus rhythm Received IV amiodarone. Cardiology following -Acute hypoxic respiratory failure from aspiration pneumonia, status post ventilator assisted: Reintubated November 25. FiO2 35 PEEP of 5 Tracheostomy tube-by Dr. Zepeda on December 09 Tracheostomy tube changed to #8 Shiley on January [address] Love -Septic shock, recovered -Hypertension, recurrent Had received Cleviprex. Hydralazine added -Intermittent hypotension: Corrected Intermittent use of Levophed. 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 Also anemia of blood draw. Iron deficiency anemia Received total of 8 units of blood IV iron. -Severe thrombocytopenia. Would consider coagulation disorder secondary to infection., In the setting of underlying lymphoma.: Fluctuating with infection: Improved Hematology following. 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 difficile ruled out. -Large superficial gastric antral ulceration involving the gastric antrum extending into the pylorus with gastric outlet obstruction. 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 -DNR made on January 12. Now full code with instructions on January 17. Patient is full code now Overall clinical picture remains unchanged. CT scan ordered by track supervisor. will discuss results with surgery and then take a decision about further course of action. Patient remains critically ill with poor prognosis. Past Medical History Past Medical History: GERD/Reflux History of Any Multi-Drug Resistant Organisms: None Reported Past Surgical History: Heart Catheterization Additional Past Surgical History / Comment(s): colonsocopy,spinal injection, Past Anesthesia/Blood Transfusion Reactions: No Reported Reaction Past Psychological History: No Psychological Hx Reported Smoking Status: Never smoker Past Alcohol Use History: None Reported Past Drug Use History: None Reported
[2024-02-08 17:33] LABS: Glucose,Whole Blood 175 mg/dL (70-110)
[2024-02-08 23:38] LABS: Glucose,Whole Blood 162 mg/dL (70-110)
[2024-02-09 04:58] LABS: ABG Base Excess 2.5 mmol/L; ABG HCO3 26 mmol/L (21-25); ABG PCO2 32 mmHg (35-45); ABG PH 7.51 (7.35-7.45); ABG PO2 70 mmHg (83-108); ABG TCO2 27 mmol/L (19-24); Allen Test Performed? Yes
[2024-02-09 05:32] LABS: Glucose,Whole Blood 147 mg/dL (70-110)
[2024-02-09 05:45] LABS: Basophils # (A) 0.1 k/uL (0-0.2); Basophils % (A) 0 %; Eosinophils # (A) 0.2 k/uL (0-0.7); Eosinophils % (A) 1 %; HCT 22.9 % (39.0-53.0); HGB 7.2 gm/dL (13.0-17.5); Hypochromasia Marked; Lymphocytes # (A) 3.4 k/uL (1.0-4.8); Lymphocytes % (A) 17 %; MCH 30.6 pg (25.0-35.0); MCHC 31.6 g/dL (31.0-37.0); MCV 96.6 fL (80.0-100.0); Mean Platelet Volume 7.7; Monocytes # (A) 0.8 k/uL (0-1.0); Monocytes % (A) 4 %; Neutrophils # (A) 14.8 k/uL (1.3-7.7); Neutrophils % (A) 76 %; Platelet Count 421 k/uL (150-450); RBC 2.37 m/uL (4.30-5.90); RDW 15.7 % (11.5-15.5); WBC 19.5 k/uL (3.8-10.6)
[2024-02-09 05:54] LABS: African American GFR (CKD) >90 (>60 ml/min/1.73 sqM); Anion Gap 6 mmol/L; Blood Urea Nitrogen 22 mg/dL (9-20); Calcium 7.9 mg/dL (8.4-10.2); Carbon Dioxide 23 mmol/L (22-30); Chloride 115 mmol/L (98-107); Glucose 146 mg/dL (74-99); Magnesium 2.1 mg/dL (1.6-2.3); Non-African American GFR(CKD) >90 (>60 ml/min/1.73 sqM); Phosphorus 3.2 mg/dL (2.5-4.5); Potassium 3.9 mmol/L (3.5-5.1); Sodium 144 mmol/L (137-145)
--- NOTE | 2024-02-09 06:55 | XR ---
EXAMINATION TYPE: XR chest 1V portable DATE OF EXAM: 02/09/2024 COMPARISON: 02/08/2024 CLINICAL INDICATION: Male, 73 years old with history of Pseudomonas/Mechanically Ventilated; TECHNIQUE: Single frontal view of the chest is obtained. FINDINGS: Tracheostomy tube is 4.6 cm above the josseline. There is an NG tube within the stomach. There is no josue nge in the right pleural pigtail drainage catheter. Is no change in the position of the Mediport cath eter tip in the right atrium. No change in the tip of the left PICC line tip in the SVC/RA junction. There is no change in the left lung infiltrate is combination of small of airspace consolidation and interstitial density. No change in the opacification of the right lung apex and right costophrenic an gle. There is stable large amount of free intraperitoneal air beneath the diaphragm. IMPRESSION: 1. No change in the position of the above-described apparatus. 2. No change in the bilateral acute cardiopulmonary disease. 3. No change in the free air within the abdomen. [facility], Workstation: [email or web address] 02/09/2024 6:52 AM
[2024-02-09 12:28] LABS: Glucose,Whole Blood 155 mg/dL (70-110)
[2024-02-09] MEDS: ACETAMINOPHEN IV (For NPO) 1,000 MG in EMPTY BAG 1 BAG IVPB PRN (12:38)
--- NOTE | 2024-02-09 12:40 | P.PN ---
Subjective Progress Note Date: 02/09/24 Principal diagnosis: Acute hypoxic respiratory failure requiring intubation mechanical ventilation secondary to aspiration. Possible insertion of jejunostomy feeding tube with multiple complications related to the jejunostomy tube placement This is a 73-year-old white male with history of chronic abdominal pain for the last 8 months has been treated with Protonix 40 mg daily for the last 3 months with no improvement. Patient had a 22 pound weight loss in the last [address] of the abdomen and pelvis 3 weeks ago showed thickening of the antral wall with pathological adenopathy posterior to the stomach suspicious of neoplasm. Today the patient underwent elective upper endoscopy to evaluate further, patient received IV sedation by anesthesia endoscope was inserted into the mouth, esophagus was intubated without any difficulty there was evidence of large amount of liquid and solid food noted in the stomach suggestive of gastric outlet obstruction. Scope could not be advanced through the pylorus, however in the prepyloric area there was a large superficial ulceration identified with multiple biopsies were done from this area. The body cardia and fundus could not adequately visualize because of large amount of retained food in the stomach. Scope was withdrawn back to the stomach and upon careful examination the mucosa of the antrum body and cardia as well as the fundus appeared normal. Procedure was being performed and biopsies were done patient threw up and subsequently became hypoxic there was clearly evidence of witnessed aspiration anesthesia intubated the patient, procedure was terminated, and the patient was transferred to the ICU, this consult was initiated. Patient is now on assist- control rate of 20 tidal volume 500 FiO2 70% PEEP of 10 ABG is pending, earlier ABG showed profound hypoxia patient is on propofol at 50 mcg/kg/min, next ABG is pending. Chest x-ray showed chronic changes without evidence of acute pulmonary disease. 01/10/2024, the patient is on low-dose Precedex. Currently comfortable, sensitive to mechanical ventilator. Output from the pigtail has dropped and the patient continues to have a positive airleak. The chest x-ray shows bilateral consolidation worse on the right and there is a small right apical pneumothorax. Pigtail catheter is in a good location. Blood gas showed a pH of 7.48 with a pCO2 of 35 and a pO2 of 83. He is on assist-control mode with rate of 20, tidal volume of 600, FiO2 30% with a PEEP of 5. RAYA drain output is serosanguineous. TPN is at 90 cc an hour. Fluid balance is -700 cc. The white cell count is at 15.4, hemoglobin is at 6.7 and the patient was given a unit of packed RBC and a platelet count is 188. Electrolytes show a BUN of 46 with a creatinine of 0.7, sodium of 135, potassium level of 3.3. Antibiotics has been modified to a combination of ciprofloxacin and tobramycin as the patient showed quinolone sensitive Pseudomonas in the sputum and in the drain the abscess from the right lung. On 02/01/2024, the patient is still on propofol and currently is off Nimbex. Propofol is running at 30 mcg/kg/min. He remains on assist-control mode of mechanical ventilation at rate of 28, tidal volume of 500, FiO2 50% with a PEEP of 6. Blood gases showed a pH of 7.44 with a pCO2 of 53 and pO2 of 115. Chest x-ray shows bilateral consolidation. No significant cavitation. No pneumothorax. There is a right-sided pigtail catheter in place. No significant change in the patient has diffuse bilateral pneumonia. Bronchoscopy was done on 01/30/2024 was consistent with Pseudomonas aeruginosa. The patient remains on a combination of meropenem, vancomycin and Flagyl. He is afebrile. Hemodynamically stable. Cardiac rhythm is sinus. Continues to have leaks aroun d his tracheostomy tube and I decided to exchange tracheostomy tube to XLT longer tracheostomy tube to prevent post leaks. The patient remains on TPN for nutritional support. Fluid balance is -2.3 L as the patient received diuretics yesterday. Continues to have edema in all 4 extremities. The white cell count is lower at 15.3 with a hemoglobin of 7.2 and a platelet count of 408. Sodium is at 140, bicarb is at 34, BUN 33 with a creatinine of 0.5. No other significant events overnight. He seems to be more arousable compared to yesterday. On 02/02/2024, the patient is on Precedex running at 1.1 mcg/kg/min. He is a bit restless. Awake and tries to talk while even being on the mechanical ventilator. He remains on assist-control mode of mechanical ventilation. He is on volume-cycled rate of 20, tidal volume of 500, FiO2 of 50% with a PEEP of 6. Blood gas showed pH of 7.38 with a pCO2 of 61 and pO2 115. Chest x-ray shows multifocal bilateral pneumonia consolidation. No pneumothorax. Pigtail catheter still present in the right hemithorax and there is intermittent air leak. No significant output. Fluid balance is +1.1 L over the past 24 hours. The most recent bronchioloalveolar lavage obtained from this patient showed Pseudomonas aeruginosa. Nevertheless, sensitivities have been changed and is Pseudomonas aeruginosa is multidrug-resistant, there is intermediate sensitivity to Zosyn and tobramycin and based on that the patient was started on a combination of Zosyn and tobramycin. He remains on TPN for nutritional support rate of 90 cc an hour. Blood work shows a white cell count of 11.1, hemoglobin is down to 6.4 and a platelet count is at 233. BUN 34 with a creatinine of 0.6 and a sodium levels at 141 with a potassium level is a 3.9. Vancomycin has been discontinued. Abdominal exam remains unchanged. Patient was seen today on , remains in the ICU, remains intubated and mechanically ventilated, patient had a new tracheostomy placed because of leak from his previous tracheostomy this was done by Dr. Beckford on 02/01/24. He also had bronchoscopy and mucous plugs extraction on 01/28 and 01/04 0. Patient is on assist-control rate 20 tidal volume 620 FiO2 50% PEEP of 5 ABG showed a pO2 of 122 pCO2 44 pH of 7.49 hence FiO2 was cut down to 40%. Patient will be given a weaning trial with a pressure support of 14 and CPAP, however he only l asted few minutes and his respiratory rate was in the high 40s and tidal volume was not great. Patient had to be placed back on assist mode of mechanical ventilation shortly after. Remains on Precedex at 0.7, TPN at 90 cc/h patient received a unit of packed RBCs on 02/01 for hemoglobin of 6.4. His sputum continues to show Pseudomonas and this was from 01/29 remains on Zosyn. Continues to have right-sided pigtail catheter with ongoing air leak. Not ready to remove. No evidence of pneumothorax noted on the chest x-ray, continues to have bilateral airspace disease. WBC count is 16.5 hemoglobin 8.6, Basic metabolic profile is normal potassium 3.1 BUN is 37 creatinine 0.65 Seen today on 02/04/2024, ICU, intubated and mechanically ventilated, patient had a CT of the abdomen and pelvis yesterday done mostly because of worsening abdominal distention and abnormal findings on the chest x-ray is suggestive of free air under the hemidiaphragm. Indeed the patient was found to have perforated viscus and pneumoperitoneum. The main situation here is the fact that the patient is extremely poor surgical candidate, and he is critically ill, doubt if he would even survive this perforation with medical therapy. In the meantime the patient remains on antibiotics in the form of tobramycin and Zosyn surgery on the case clearly stated to the that surgical mortality is 100%, and they would not recommend surgical intervention. Family is also aware that medical therapy alone has very high mortality considering his overall condition. Patient has been on antibiotics all along, he is intubated and mechanically ventilated on AC mode of 20 tidal volume 620 FiO2 40% PEEP of 5 patient ABG s howed a pO2 of 109 pCO2 43 pH of 7.51, chest x-ray continues to show hydropneumothorax and bilateral airspace disease. I had a long discussion with the family today at bedside and even suggested comfort care measures to the family, as mortality is extremely high either way. Family to make a decision on comfort care measures/hospice. Time continue antibiotics, continue TPN, continue propofol at 45 mcg/kg/min, patient is not in any shape to consider any form of weaning at this point considering this new abdominal findings/bowel perforation WBC count today is 18.6 hemoglobin 7.8 basic metabolic profile is normal potassium is a bit low at 3.1 BUN is 39 creatinine 0.60 Patient was evaluated today on 02/05/2024, remains in ICU, intubated mechanically ventilated on assist-control rate of 20 tidal volume 620 FiO2 40% PEEP of 5 ABG showed a pO2 of 91 pCO2 40 pH of 7.50 patient developed bowel perforation and pneumoperitoneum day before yesterday, and he is on antibiotics, surgery is not planning any surgical intervention because of high risk. Patient continues to have distended abdomen patient remains on propofol at 45 mcg/kg/min he is also on TPN at 45 mL/h. Today I went ahead and placed a right radial arterial line, patient is getting blood draws and prefers to have it done from the arterial line instead of poking him on a daily basis. X-ray continues show similar findings compared to chest x-ray yesterday, continues to have pigtail catheter on the right side with ongoing air leak. Antibiotics arce remains on Zosyn and tobramycin sputum cultures have been growing Pseudomonas aeruginosa and now his abdominal findings are of concerns and the patient has acute pneumoperitoneum. Patient was evaluated today on 02/06/2024, remains in the ICU remains intubated remains ventilated. Patient is on assist-control rate of 20 tidal volume 620 FiO2 40% PEEP of 5 ABG showed a pO2 of 135 pCO2 38 pH of 7.49. Continues to have air leak noted in the chest tube. Chest x-ray is basically about the same continues to have scattered infiltrates left more so than right, pigtail catheter remains in place, no evidence of pneumothorax noted on the chest x-ray today. WBC is 12.5 hemoglobin is 7.7, basic metabolic profile is normal renal profile is normal bicarb is 28. Patient remains on Zosyn and on tobramycin. Hemoglobin today is 7.7. Patient remains on TPN is at bedside, updated the on his condition and explained to the that his condition is extremely poor, she was expecting to hear from all 3 surgeons who have seen this patient since admission Patient was seen today on 02/07/2024, patient remains about this, he is on assist-control mode of mechanical ventilation, on Precedex, this was started yesterday to replace propofol, patient is arousable, generally weak, follows very simple instructions, a bit lethargic. Patient is on assist-control rate of 20 tidal volume 620 FiO2 35% PEEP of 5 ABG showed a pO2 of 102 pCO2 38 pH of 7.48 hence no changes were made in vent settings his Precedex dose is now 0.6 g/kg/h, remains on antibiotics in the form of Zosyn and tobramycin as per infectious disease on the case, remains on TPN at 45 cc/h today we had a long bleeding with the family and the different consultants on the case, and family was made aware of his poor prognosis and the surgeon made it clear that it is impossible and extremely risky to take him back to surgery and perform exploratory laparotomy he feels that this is potentially disastrous. Hence the patient cannot have surgery and in the meantime we are medically managing knowing that mortality is extremely high either way whether the patient goes to surgery or continue medical therapy I specifically asked the surgeon if he would consider exploratory laparotomy and he clearly stated he would not do so. Because of the high risk and totality. 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 ABG showed a pO2 of 93 pCO2 36 pH of 7.47 patient is awake, appropriate, follows instructions, denies being in any pain however his abdominal distention seems to be getting worse, and quite tympanitic large area of air noted in the abdomen based on the chest x-ray itself, hence discussed with the surgeon and agreeable to proceed with CT of the abdomen and pelvis today. although what other findings noted on the CT of the abdomen pelvis according to the surgery will not change our treatment. The would like to know the status of his abdomen at this point could be given a trial of pressure support and CPAP today, his nasogastric tube was apparently pulled out by the patient or coughed out by the patient and will try to establish another nasogastric tube this will be done by Dr. Ruiz if she can today is 14.9 hemoglobin 7.5 basic metabolic profile is normal renal profile is normal Symptoms 02/09/2024, remains in the ICU intubated mechanically ventilated on assist-control rate 20 tidal volume 620 FiO2 35% PEEP of 5 ABG showed a pO2 of 70 pCO2 32 pH of 7.51 patient remains on Precedex at 0.8 mcg/kg/h he is also on TPN at 65 mL/h remains on antibiotics in the form of Zosyn and tobramycin yes terday CT of the abdomen continues to show significant pneumoperitoneum, not much of a change compared to his initial CT earlier in the week. Abdomen remains distended and tympanitic. Nasogastric tube was placed yesterday by surgery to help decompression cannot use the tube for feeding. Chest x-ray today is showing worsening infiltrates in the left lower lobe, otherwise the right side remains about the same. He is to have hydropneumothorax and he has a pigtail catheter draining to a Pleur-evac continues to have air leak. The is requesting plans to get him home in the next 24 hours hopefully for palliative care and holistic treatment and I will have family welfare social work professor look into the process of hopefully getting him home for palliative care in the next 24 hours if she wishes to proceed family is well aware of his poor prognosis, his condition has been discussed over and over with all family members in the last 3 months malignancy count is up today 19.5 and that is expected considering his abdominal sepsis his hemoglobin is 7.2Basic metabolic profile is normal renal profile remains normal transfer tech Objective - Vital Signs Vital signs: Vital Signs Temp 100.2 F H 02/09/24 10:00 Pulse 84 02/09/24 11:32 Resp 29 H 02/09/24 11:00 BP 206/125 02/09/24 05:00 Pulse Ox 95 02/09/24 11:00 FiO2 35 02/09/24 11:21 Intake & Output 02/08/24 02/09/24 02/09/24 18:59 06:59 18:59 Intake Total 9768.172 0756.287 542 Output Total 1335 1630 405 Balance -78.962 -86.713 137 Weight 108.8 kg Intake: IV 240 501 82 0.9 Normal Saline @ KVO 240 260 70 Normal Saline Pressure 36 12 Saline Piperacillin-Tazobactam 3 100 .375 gm In Sodium Chloride 0.9% 100 ml @ 25 mls/hr IVPB Q8HR [facility] Rx# :[id number] Tobramycin Sulfate 200 mg 105 In Sodium Chloride 0.9% 100 ml @ 105 mls/hr IVPB Q36H [facility] Rx#:[id number] Intake, IV Titration 194.038 197.287 200 Amount Dexmedetomidine/0.9% NaCl 194.038 197.287 100 (Pmx) 400 mcg In Empty Bag 1 bag @ 0.2 MCG/KG/HR 5.375 mls/hr IV .[id number] [facility] Rx#:[id number] Piperacillin-Tazobactam 3 100 .375 gm In Sodium Chloride 0.9% 100 ml @ 25 mls/hr IVPB Q8HR [facility] Rx# :[id number] TPN/PPN 780 845 260 TPN 780 845 260 Lipid 42 Fat Emulsion 20% 250 ml 42 In Empty Bag 1 bag @ 21 mls/hr IV TuThSa [facility] Rx#: [id number] Output: Chest Tube Drainage 0 Chest Tube Right 0 Gastric Drainage 110 150 Drainage 30 Left Abdomen 30 Urine 1225 1450 405 Other: Voiding Method Indwelling Catheter Indwelling Catheter Indwelling Catheter ABP, PAP, CO, CI - Last Documented Arterial Blood Pressure 170/77 - Exam General: Revealed 73-year-old white male on mechanical ventilation, arousable follows instructions to be generally weak Skin: Skin is warm and dry and no rashes or lesions are noted. Tracheostomy is intact. Eye: Pupils are equal, round and reactive to light, extra-ocular movements are intact; there is normal conjunctiva bilaterally. Ears, nose, mouth and throat: There are moist mucous membranes and no oral lesions. Neck: The neck is supple, there is no tenderness or JVD. Tracheostomy is intact Cardiovascular: There is a regular rate and rhythm. No murmur, rub or gallop is appreciated. Respiratory: Crackles at the left base no rhonchi no wheezes right-sided pigtail catheter remains in place continues to have air leak Gastrointestinal: Distended and tympanitic, wound VAC is noted J-tube site is the same with intermittently leaking Neurological: Awake, follows all instructions, generally weak Extremities: 2+ bipedal edema - Labs CBC & Chem 7: 02/09/24 04:51 02/09/24 04:51 Labs: Abnormal Lab Results - Last 24 Hours (Table) 02/08/24 02/08/24 02/09/24 Range/Units 17:32 23:37 04:49 WBC (3.8-10.6) k/uL RBC (4.30-5.90) m/uL Hgb (13.0-17.5) gm/dL Hct (39.0-53.0) % RDW (11.5-15.5) % Neutrophils # (1.3-7.7) k/uL ABG pH 7.51 H (7.35-7.45) ABG pCO2 32 L (35-45) mmHg ABG pO2 70 L (83-108) mmHg ABG HCO3 26 H (21-25) mmol/L ABG Total CO2 27 H (19-24) mmol/L Hemoglobin 7.3 L (13.0-17.5) gm/dL Chloride (98-107) mmol/L BUN (9-20) mg/dL Creatinine (0.66-1.25) mg/dL Glucose (74-99) mg/dL POC Glucose (mg/dL) 175 H 162 H (70-110) mg/dL Calcium (8.4-10.2) mg/dL 02/09/24 02/09/24 02/09/24 Range/Units 04:51 04:51 05:30 WBC 19.5 H (3.8-10.6) k/uL RBC 2.37 L (4.30-5.90) m/uL Hgb 7.2 L (13.0-17.5) gm/dL Hct 22.9 L (39.0-53.0) % RDW 15.7 H (11.5-15.5) % Neutrophils # 14.8 H (1.3-7.7) k/uL ABG pH (7.35-7.45) ABG pCO2 (35-45) mmHg ABG pO2 (83-108) mmHg ABG HCO3 (21-25) mmol/L ABG Total CO2 (19-24) mmol/L Hemoglobin (13.0-17.5) gm/dL Chloride 115 H (98-107) mmol/L BUN 22 H (9-20) mg/dL Creatinine 0.65 L (0.66-1.25) mg/dL Glucose 146 H (74-99) mg/dL POC Glucose (mg/dL) 147 H (70-110) mg/dL Calcium 7.9 L (8.4-10.2) mg/dL 02/09/24 Range/Units 12:25 WBC (3.8-10.6) k/uL RBC (4.30-5.90) m/uL Hgb (13.0-17.5) gm/dL Hct (39.0-53.0) % RDW (11.5-15.5) % Neutrophils # (1.3-7.7) k/uL ABG pH (7.35-7.45) ABG pCO2 (35-45) mmHg ABG pO2 (83-108) mmHg ABG HCO3 (21-25) mmol/L ABG Total CO2 (19-24) mmol/L Hemoglobin (13.0-17.5) gm/dL Chloride (98-107) mmol/L BUN (9-20) mg/dL Creatinine (0.66-1.25) mg/dL Glucose (74-99) mg/dL POC Glucose (mg/dL) 155 H (70-110) mg/dL Calcium (8.4-10.2) mg/dL Assessment and Plan Assessment: Impression: Acute hypoxic respiratory failure requiring intubation mechanical ventilation secondary to aspiration. Initially, however the patient recovered from aspiration pneumonia but went on to develop more complications after a J-tube was placed to bypass the obstruction that was noted by the lymphoma on his initial EGD done by gastroenterology. Patient had more and more complications after that J-tube replacement and continued to have malfunctioning J-tube and surgery did not feel further surgery on the J-tube will be of any value. Hence patient kept having TPN instead of enteral feeding and he continued to have intermittent leaking from the J-tube which was malfunctioning and then few days ago patient developed acute pneumoperitoneum this was felt by surgery that the patient poor healing after any surgical intervention including J-tube placement and tracheostomy as well as Port-A-Cath placement Status post tracheostomy on 12/10/2023 The patient has bilateral pneumonia with a cavitary infiltrate in the right upper lobe, secondary to Pseudomonas aeruginosa, Status post bronchoscopy on 01/28 and 01/04 and tracheostomy tube change on 01/04 Status post J-tube placement 11/16/2023, multiple complications since then related to the J-tube placement requiring multiple surgeries. 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 No drainage noted from the PEG tube however he continues to have ongoing airleak Acute peritonitis secondary to above, secondary to bowel perforation with abdominal contamination Septic shock secondary to above Paroxysmal atrial fibrillation Weight loss secondary to non-Hodgkin's lymphoma Acute aspiration pneumonia/right upper lobe lung abscess, improved, however yolanda ent went on to develop Klebsiella pneumonia and empyema related to Klebsiella pneumonia quiring pigtail catheter placement Acute aspiration during upper endoscopy most likely secondary to gastric outlet obstruction secondary to non-Hodgkin's lymphoma based on the pathology from stomach biopsies, considering the gastric outlet obstruction patient required J- tube placement and again he went on to develop multiple complications since the J-tube was placed 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 At 1 point patient was able to tolerate trach collar for almost a week, but considering all his comorbidities patient had to be placed back on mechanical positive pressure ventilation Critical illness polyneuropathy, profound weakness because of his prolonged ICU stay Metabolic encephalopathy improving and fluctuating from day-to-day has been improving as long as he is on Precedex not requiring too much propofol and narcotics Bowel perforation, diagnosed on 02/03/2024, surgery on the case is not eunice mmending surgical intervention because of high mortality/morbidity, this issue was discussed with surgery in the presence of family members, and clearly surgery is not and will not plan any surgical intervention on his abdomen mostly because of high risk and high mortality. Follow-up CT of the abdomen and pelvis showed basically significant pneumoperitoneum otherwise no change Following to surgery and admitting physician attempts have been made to transfer the patient to a tertiary care center and multiple attempts have failed Recommendation: Continue ventilatory support, Continue antibiotics as per infectious disease on the case Continue Precedex will try to avoid propofol and narcotics as much as possible and less felt to be necessary Continue nutritional support/TPN continue chest tube/pigtail catheter to suction, continues to have air leak not ready to be removed Continue GI and DVT prophylaxis is requesting palliative care at home, this will be addressed tomorrow by family welfare social work professor and hopefully this can be arranged for Remains critically ill, prognosis is extremely poor Updated the on the findings of the CT of the abdomen pelvis that was done yesterday Critical care time is over 30, Will continue to follow Time with Patient: Greater than 30
--- NOTE | 2024-02-09 17:50 | P.PN ---
Progress Note - Text Progress Note Date: 02/09/24 Chief Complaint: On the ventilator This is a 73-year-old patient, follows with Dr. Patricia Deal. Patient was seen this morning in the ICU. Patient's and daughter at the bedside. History obtained predominantly by the . Patient been having trouble with his stomach symptoms for close to 8 months. Patient underwent EGD by Dr. Sahara Cheng yesterday. Patient was found to have ulcerated around the antrum and obstruction to the pylorus. A lot of retained food was found. Patient aspirated. Had to be intubated and brought to the ICU. On a Levophed drip. FiO2 50 and a PEEP of 6. Patient had been losing weight lost about 25 pounds. Previously has a history of mitral valve prolapse. November 13: ICU. Patient remains on Precedex drip and propofol drip. Did not do well attempted extubation yesterday. Patient been off Levophed. NG tube to suction. Spoke to patient's and son at the bedside. Biopsy results awaited. Hemoglobin dropped to 6.9 this morning. Get a unit of blood. November 14: ICU. Up in a chair. Extubated yesterday. NG tube to suction. at the bedside. 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 Oncology was consulted. They have ordered a port. Results discussed with Dr. Sahara Cheng. General surgery was consulted for J-tube placement. Discussed with at the bedside. Patient getting IV fluids, IV Zosyn,. Patient has been on IV amiodarone for A-fib-back in sinus rhythm. Multiple PACs. Did receive unit of blood yesterday. Also IV ferric gluconate. November 15: ICU. Patient earlier today underwent jejunostomy tube placement and a port placement. Patient awake. Answering questions. NG tube to suction present. Updated patient's . Patient remains on IV amiodarone and IV Zosyn. November 16: ICU. Up in the chair. NG tube present but not to suction. Trickle feeding through the jejunostomy tube should be started today. Dietitian has been on board. IV Zosyn to continue. Patient's and his sister at the bedside. Discussed. Also spoke with Dr. Serna. Given patient has no other predisposing cardiac factors for the A-fib except acute illness. His LV function is normal. Left atrium is normal. He has already been loaded with IV amiodarone. Will switch him to oral Lopressor 12.5 twice daily. Hence will DC amiodarone. Patient yesterday had wheezing was put on bronchodilators steroids per pulmonary. November 17: Propped up in bed. NG tube was discontinued. Sinus rhythm. Remains NPO. Getting G-tube feeding at 40 cc an hour. Dietitian following. Get arrangements done for DC home tomorrow including tube feeding. Increase activity discussed with patient and elder daughter at the bedside. Still requiring oxygen. Incentive spirometry. November 18: Patient up in recliner. Earlier today spoke to social science research assistant David. Informed patient is rather weak and will be going to the [facility]. Looking at authorization. Denae came to the room and spoke to patient his and his daughter. They are very keen to take the patient home as 3 daughters all nurses and they will take care of him at home. Patient earlier today to abdominal cramping and some loose stools.'s tube feeding was held. Told the nurse to start back at the rate of 40 cc an hour. He was before the getting it at 55 cc an hour. Incentive spirometry was again emphasized. Patient remains on 4 L of oxygen. November 19: I saw the patient this morning. Hence I am in the evening. Morning was sitting with his sons. Has some edema. Lungs had crackles I gave him 40 mg of Lasix. He did make good urine. Tube feeding was held from the p revious evening of because of abdominal cramping. Acute abdominal series showed nonspecific bowel gas pattern and SBO to be ruled out. Family and patient was updated. Told him discharge will depend on day by day. Later this afternoon CT scanAnd abdomen pelvis done. Showed small bowel to be 3 point centimeter dilated. Some anasarca. Gastric findings. Gallstones. Later spoke to Dr. Irby from general surgery. They will further review and decide about further plan of action. Will give further dose of IV Lasix because of fluid overload from likely hypoalbuminemia and IV fluids previously received. Patient may take his pills by mouth. Total time spent today about 1 hour with over 40 minutes of discussion. Patient did state his breathing is better after Lasix this morning. November 20: Saw the patient this morning. was present. Patient received 2 more doses of Lasix. Diuresed well. Breathing much better. Lungs are sounding better. Discussed with Dr. Zeepda other surgeon. He is taking 3 cc out of the balloon and the gastrostomy tube. Started trickle feeding at 5 cc an hour. Will see how this does. Later in the day ran into the and the daughter again. Did update them on the same. Dilaudid was discontinued yesterday but morphine was ordered by surgery for patient having pain. Concerns about GI issues with that we will DC the morphine. As family does not want the same. November 21: Patient reclining bed. Tired. Several family members at the bedside. Including his and eldest daughter. Patient started on trickle feed yesterday at 5 cc an hour. This morning he has been on 10 cc an hour. Still having some loose stools. C. difficile was ordered. Patient on 2 L of nasal cannula. Has diuresed well. Will give an additional dose of Lasix today. If C. difficile is negative and the diarrhea is from the tube feedings we may have to use a fecal management system to keep him comfortable. Otherwise patient remains NPO. Dietitian is following the patient. Care was discussed length with patient the and daughter at the bedside. Questions answered. Liquid Tylenol has been added for abdominal pain. Avoid narcotics. Elevated white count likely from Solu-Medrol 11/23/2023--patient was feeling better today. Multiple family member at bedside. No issues overnight. Normal saline at 10 cc an hour, tube feeding at 20 cc an hour, remains on Zosyn, on 3 L oxygen. Afebrile. Heart rate 62, respiratory rate 16, blood pressure 114/67, saturating 91% on 3 L. WBCs 14.5, 9.7 hemoglobin. Platelet 242. BMP is unremarkable. Pulmonary and general surgery following. General surgery recommended to continue tube feeds at 20 cc/h. 11/24/2023--patient reported significant abdominal discomfort, also noted to have leak around G-tube. General surgery is following, evaluated the patient at bedside, adjusted tube feeds. Also reported having diarrhea, on 2 L oxygen, went up to 5 L. Blood pressure was low, 500 mL fluid bolus with close monitoring of respiratory status ordered. Currently on DuoNebs, Solu-Medrol, will continue Zosyn. Chest x-ray showed a left lower lobe infiltrate. Abdominal x-ray showed multiple air-fluid levels. CT abdomen showed multiple dilated small bowel loops, consistent with obstruction, pneumoperitoneum, cholelithiasis and ascites. WBCs 14.1, platelet 255, hemoglobin 8.9. NG tube in place. Family at bedside. patient transferred to SICU for close monitoring. 11/25/23--patient is currently in the ICU, required Levophed overnight due to low blood pressure, low urine output with creatinine trending up. Nephrology following. Assessment Expert also following. Patient remains n.p.o., NG tube in place, following NG tube insertion patient had total of 2 L output, J-tube was draining approximately 200 cc over last 8 hours, continues to have abdominal pain and abdominal tenderness. Patient on IV fluids. Currently on 4 L oxygen. WBCs 8.2, hemoglobin 12.3, platelet 188. Chest x-ray earlier today showed right sided port and a stable left lung airspace disease, NG tube in place. Patient currently on Zosyn, on IV Dilaudid for pain control, on IV Solu-Medrol. General surgery planning for OR today, started on TPN. 11/26/23--patient was seen and examined today. Patient is currently sedated, intubated on mechanical ventilation. Family at bedside. Patient underwent ex lap, abdominal washout, small bowel resection with new feeding jejunostomy tube placement yesterday, small bowel was noted to be perforated with significant contamination of abdominal cavity. Patient is currently on vancomycin and Zosyn. Creatinine went up to 2.85, nephrology following, recommended to continue IV fluids, avoid nephrotoxin Preserved EF on echocardiogram.. Patient currently on Levophed, vasopressin in the ICU for close monitoring. Patient is afebrile, heart rate 122, blood pressure 129/76, currently on mechanical ventilation, sedated. November 26: ICU. Intubated. FiO2 60 and a PEEP of 5. Drips include IV amiodarone. Heart rate was up early did get fired microgram of IV digoxin and 2.5 mg of IV Lopressor. Did drop her blood pressure bit. Urine output was low. Received 80 mg of IV Lasix. Ahmet to 150 cc. Other drips include IV propofol, vasopressin, Levophed. TPN was started yesterday. Antibiotics include IV Zosyn and vancomycin. Patient has a J-tube to drainage to gravity. Spoke to patient's younger daughter and at the bedside. Prognosis guarded. Continue current treatment plan. Chest x-ray shows right lower lobe consolidation. Small pleural effusion. November 27: ICU. Intubated. FiO2 55 and a PEEP of 5. Antibiotics include IV vancomycin. Drips include Levophed at a small dose, IV vasopressin, propofol, amiodarone. Patient converted to sinus rhythm this morning. Getting TPN and normal saline at 75 cc an hour. Urine output about 25 cc an hour. RAYA drain put out about 260 cc last 12 hours that is last overnight cashier. NG tube with bilious output. And also GI J-tube output to gravity. Spoke to patient's and daughter at the bedside. They understand patient still not out of the kee. Platelets have dropped-therefore probably Zosyn stopped. November 28: ICU. Intubated. FiO2 55 and a PEEP of 5. Patient is in sinus rhythm. Seen this morning. Due for dialysis catheter this afternoon. Urine output about 15 to 20 cc an hour. Patient is on IV Lasix 80 mg every 12. Saline is KVO. Drips include IV propofol vasopressin. Patient having significant output through the RAYA drain and the jejunostomy tube to drainage. Creatinine had been getting worse. Patient's at the bedside. Understands patient's remains critically ill. Hemoglobin is down to 7. Given that patient's pain hypotensive, and on vasopressin we will give a unit of blood with dialysis. Getting TPN antibiotic changed to IV meropenem November 29: ICU. Intubated. FiO2 55 and a PEEP of 5. Remains in sinus rhythm. Getting TPN. Dialyzed yesterday and this morning. About 1000 cc removed. Urine output about 50 cc an hour. Patient is on IV propofol. Off vasopressin. Still having significant output through the RAYA drain and jejunostomy tube. Patient received a second unit of blood yesterday. Patient's and daughter at the bedside. I did discuss guarded prognosis. Did asked them to revisit CODE STATUS.. Getting IV meropenem. November 30: ICU. Intubated. Did get a sedation holiday t today. Back on propofol. Getting TPN. Still getting IV Lasix. Fair urine output. Jejunostomy tube in last 8 hours was about 30 cc output. RAYA drain in the 8 hours had about 180 cc output. Telemetry shows sinus rhythm. NG tube has low intermittent suction with negative output. On the vent with FiO2 40 and a PEEP of 5. No hemodialysis today. Discussed with the and eldest daughter at the bedside. IV meropenem-patient's sputum had grown Citrobacter freundii and Pseudomonas aeruginosa. December 01: ICU. Intubated. Jejunostomy tube to gravity. Only 10 cc output in last 24 hours. RAYA drain. About 190 cc last 6 hours. Nasogastric tube to low intermittent suction. Minimal output. Patient is on a small dose of propofol 5 mics. Telemetry shows sinus rhythm. Patient started on small dose of Cleviprex this morning. Blood pressure. Getting TPN. FiO2 35 and PEEP of 5. Discussed with the at the bedside. Hemodialysis today December 02: ICU. Patient remains intubated. FiO2 35 PEEP of 5. Patient is on IV propofol. IV Cleviprex was discontinued yesterday. Also remains on TPN. Telemetry shows sinus rhythm. NG tube is good no output. Still significant output through the RAYA drain. Jejunostomy tube has minimal output. Patient had hemodialysis today 2 L of fluid was removed. Oral half liters yesterday. Patient getting a sedation holiday. General Surgery started the patient on trickle feeding at 10 cc an hour. I did speak to patient's at the bedside. Prognosis remains guarded but there is some improvement. December 03: ICU. Intubated. FiO2 35 PEEP of 5. Drips include IV propofol and Precedex. Getting TPN. Telemetry shows sinus rhythm. Remains on IV Lasix 80 mg twice a day. IV meropenem. Because patient gets easily agitated when transitioning off propofol he has been switched over to Precedex. For hemodialysis today. December 04: ICU. Intubated. FiO2 35 and a PEEP of 5. Patient been taken off propofol is on Precedex. Telemetry sinus rhythm. J-tube with minimal output. RAYA drain with decreased output. NG tube to suction minimal output. Family wanted to hold off trickle feeding until cleared by oncology. Which he did today. Trickle feeding will be started today. Spoke to patient's and one of the daughters at the bedside. Dr. Russ is spoken to the earlier this point they want to do further tracheostomy tube. October 4: ICU. Intubated. FiO2 35 PEEP of 5. Patient remains on Precedex and PPN. Patient's dialysis catheter was not functioning is getting another [address] Bobby this afternoon. Remains on IV meropenem. Has a RAYA drain in the jejunostomy tube to gravity. NG tube to low intermittent suction. No family at the bedside. December 06: ICU. Intubated. FiO2 35 PEEP of 5. RAYA drain putting out about approximately 120 cc per shift. Patient on IV Precedex. FiO2 35 PEEP of 5. Telemetry-sinus rhythm. Patient occasionally been put on small dose of Levophed specially for hemodialysis getting it today. Also started on midodrine for low blood pressure. Tolerating tube feeding at 10 cc an hour. Also had a bowel movement. Mentation has not improved. Even with sedation holiday. Neurology consulted. CT brain shows no acute process. December 07: ICU. Intubated. FiO2 35 PEEP of 5. Telemetry-sinus rhythm. NG tube to suction low intermittent minimal output. Getting TPN. Tube feeding at 20 cc an hour. RAYA drain averaging over 100 cc per shift. Remains on Precedex. EEG was done today. Discussed with at the bedside. Family is currently not inclined for tracheostomy tube today. Day 13 of being intubated December 08: ICU. Intubated. FiO2 35 PEEP of 5. Patient is put on back on propofol per community advocate Dr. JIMENEZ. EEG did show some potential for spikes was put on Keppra by neurology. Telemetry shows sinus rhythm. NG tube to suction with no output. Tube feeding was put on hold because of questionable discharge on the site. Being restarted today. RAYA drain is 150 cc last 12-hour shift. Patient does open eyes. Family has decided to proceed with tracheostomy and surgery has been consulted for the same. Spoke to the at the bedside. For hemodialysis today. December 09: ICU. Intubated FiO2 35 PEEP of 5. Patient seen this morning. Pending tracheostomy placement this afternoon. Remains NPO. G-tube feeding was held overnight. RAYA drain putting out about 100 cc per shift. Received a unit of blood for hemoglobin of 6.6. On 25 mics of propofol. Getting TPN and meropenem. Spoke to the at the bedside. Patient became hypotensive with dialysis yesterday. Levophed had to be given. Only 800 cc were removed yesterday. No hemodialysis today. December 10: ICU . FiO2 35, PEEP 5. Tracheostomy was done yesterday by Dr. Ewing. G-tube feeding was started today at 10 cc an hour. Dietitian following. RAYA drain 12-hour shift overnight put out about 30 cc. Patient hemodialysis today about 1 L removed. Patient has a sacral stage II decub with a dressing. On propofol 20 mics. Spoke to at the bedside. TPN. Meropenem was discontinued yesterday. December 11: ICU. FiO2 35 PEEP of 5. Tracheostomy. NG tube was discontinued. No hemodialysis today. Telemetry shows sinus rhythm. J-tube feeding at 40 cc an hour. TPN was discontinued. Patient has been off propofol also. PICC line in place. Patient had a EEG done today. Spoke to patient's elder daughter at the bedside. May open eyes occasionally. Not really following commands December 12: 73-year-old white male with history of chronic abdominal pain for the last 8 months has been treated with Protonix 40 mg daily for the last 3 months with no improvement. Patient had a 22 pound weight loss in the last [address] of the abdomen and pelvis 3 weeks ago showed thickening of the antral wall with pathological adenopathy posterior to the stomach suspicious of neoplasm. Today the patient underwent elective upper endoscopy to evaluate further, patient received IV sedation by anesthesia endoscope was inserted into the mouth, esophagus was intubated without any difficulty there was evidence of large amount of liquid and solid food noted in the stomach suggestive of gastric outlet obstruction. Scope could not be advanced through the pylorus, however in the prepyloric area there was a large superficial ulceration identified with multiple biopsies were done from this area. The body cardia and fundus could not adequately visualize because of large amount of retained food in the s tomach. Scope was withdrawn back to the stomach and upon careful examination the mucosa of the antrum body and cardia as well as the fundus appeared normal. Procedure was being performed and biopsies were done patient threw up and subsequently became hypoxic there was clearly evidence of witnessed aspiration anesthesia intubated the patient, procedure was terminated, and the patient was transferred to the ICU, this consult was initiated. Patient is now on assist- control rate of 20 tidal volume 500 FiO2 70% PEEP of 10 ABG is pending, earlier ABG showed profound hypoxia patient is on propofol at 50 mcg/kg/min, next ABG is pending. Chest x-ray showed chronic changes without evidence of acute pulmonary disease. 12/14/2023 Patient remains in the ICU, generally weak Patient s/p tracheostomy G-tube in place Patient still has fever and mild tachycardia but tachycardia is improving, leukocytosis improving as well. Hemoglobin 8.1. Creatinine 3.0 and nephrology team on the case. He has mild transaminitis. He was getting Zosyn which is held now, nowCalcitonin is pending 12/14 Patient shon in the ICU, he is still encephalopathic and does not follow command. Neurology service following closely. He is status post tracheostomy. Also J-tube His abdomen looks soft and on exam he has mild coarse secretions. Has a Abarca catheter with clear urine His pro- Calcitonin is still high but trending down 3.0 down to 1.9 No fever this morning WBC slightly less at 16.3 Patient currently off antibiotic He is getting steroids IV Solu-Medrol which might contribute to his leukocytosis. Also he is on IV Keppra by neurologist 12/14 Patient remains confused in the ICU calm, he had a good night per family member and staff. Tracheostomy in place Patient has occasional coughing spells, patient also developed some partial wound dehiscence in his abdomen, surgery team are aware and are going to evaluate the patient Patient also has positive blood culture from 12/13: Gram-positive cocci in clusters. Patient received one-time dose of IV vancomycin. Patient also had fever 2 days ago, leukocytosis and total elevated pro- Calcitonin. Therefore we are going to consult infectious disease team. As his antibiotic Zosyn was stopped few days ago. Currently patient KVO He has good urine output December 16: ICU. Trach. Congested. Requiring suctioning. No hemodialysis today. Getting G-tube feeding at 50 cc an hour. FiO2 30 and a PEEP of 5. On IV Precedex. Eyes open. Does follow commands. Weakness in the limbs. Spoke to at the bedside. Sputum positive for Klebsiella oxytoca and Pseudomonas aeruginosa. December 17: ICU. On trach. Currently cough with increased secretions requiring suctioning. Adding scopolamine patch. Very much clear secretion. CT scan is showing right upper lobe lung abscess. G-tube feeding at 50 cc an hour. Hemodialysis today. RAYA drain putting out about 140 cc a shift. Serous. Has been midline incision wound dehiscence. Wound VAC was placed on it. Stage II ulcer. Patient is on Precedex drip 0.15 mics. Urine output is good about 6200 cc an hour. Spoke to the at the bedside. Patient currently not stable for transfer to LTAC. No limb movements. PT OT on the case. otherwise awake does follow simple commands by face December 18: ICU. Patient seen this afternoon. Because of pain getting IV Dilaudid. No nasal cannula on room air. Does move about his head. Telemetry shows sinus rhythm. FiO2 30 and a PEEP of 5. Patient started on scopolamine patch yesterday has decreased secretions today. Good urine output. Tube feeding at 60 cc an hour. Wound VAC on incisional would be high since in place. RAYA drain continues to make output. No hemodialysis today December 19: ICU. Patient was seen earlier today. FiO2 30 and a PEEP of 5. Sinus rhythm. Awake. Does follow with eyes. Tube feeding got obstructed tube feedings held for now. Increasing oozing from the incision drainage site. at the bedside. Wound VAC remains in place. Good urine output. Dialysis held today. December 20: ICU. Per nephrology no dialysis today. 1 L fluid bolus given. J- tube was replaced over the wire by Dr. Ewing from surgery. On Precedex 0.6 mcg. FiO2 30 and a PEEP of 5 on the vent. RAYA drain putting out of around 100 cc per shift. at the bedside. Drainage through the abdominal incision wound. CT scan abdomen showed tube placement in the small bowel. Stable large right lower quadrant mass with a fluid level. December 21: ICU. No dialysis today. Patient started on trickle feeding through the J-tube yesterday. He started leaking around the J-tube site. Tube feeding was held. Dressings were placed. Wound VAC remains on the incision. Still having output through the RAYA drain. Patient remains on Precedex 0.4 mcg. FiO2 30 and a PEEP of 5. Sinus rhythm. at the bedside. December 22: ICU. Patient was seen this morning today by me. No dialysis today. Patient's and daughter at the bedside. FiO2 30 and a PEEP of 5. Sinus rhythm. Still having significant secretions through the tracheostomy tube. On Precedex 0.4 mcg. Getting D5W IV fluids. Tube feeding remains to be on hold since yesterday. Still output of RAYA drain. Awaiting input from surgery. Discussed with the and daughter. December 23: ICU. Saw the patient this afternoon. Because of good output of urine dialysis has been discontinued. Telemetry shows sinus rhythm. FiO2 30 and a PEEP of 5. RAYA output has been around 8200 cc an hour. Good urine output. Patient does have very slight movement of the limbs. Wound VAC is putting out about 20 cc per shift. Yesterday when trickle feeding was started patient's J- tube drainage also started leaking around the insertion site. Tube feeding was held. Patient remains on IV Zosyn and Precedex at 0.3 mcg. I had a very lengthy discussion with patient's daughter and at the bedside overall guarded prognosis. Later surgery spoke to the family, and then the nurse called me that family was wanting transferred to [facility]. I spoke to Dr. Irby. They felt they could not offer anything more at this point. I did call the [facility] transfer steam box operator. Gave them the reason for transfer. Later in the ICU nurse informed me through [employer] that [facility] had declined the transfer. Total time spent today about 50 minutes with over 30 minutes of discussion. December 24: ICU. Patient is doing not too well. Sinus rhythm. Drips include norepinephrine and IV propofol. Surgery did put 2 stitches around the J-tube insertion site. Started on TPN today. FiO2 30 PEEP of 5. Patient became hypothermic put on a Manjit hugger. Also hypoglycemic. Decreased urine output. IV fluids increased. Patient's son was at the bedside. I did speak to patient's eldest daughter outside in the waiting room. Did tell the patient doing very poorly. I did try to call the on the phone number she has gone home. Started an IV antifungal today. December 26, 2023 73-year-old white male with history of chronic abdominal pain for the last 8 months has been treated with Protonix 40 mg daily for the last 3 months with no improvement. Patient had a 22 pound weight loss in the last [address] of the abdomen and pelvis 3 weeks ago showed thickening of the antral wall with pathological adenopathy posterior to the stomach suspicious of neoplasm. Today the patient underwent elective upper endoscopy to evaluate further, patient received IV sedation by anesthesia endoscope was inserted into the mouth, esophagus was intubated without any difficulty there was evidence of large amount of liquid and solid food noted in the stomach suggestive of gastric outlet obstruction. Scope could not be advanced through the pylorus, however in the prepyloric area there was a large superficial ulceration identified with multiple biopsies were done from this area. The body cardia and fundus could not adequately visualize because of large amount of retained food in the stomach. Scope was withdrawn back to the stomach and upon careful examination the mucosa of the antrum body and cardia as well as the fundus appeared normal. Procedure was being performed and biopsies were done patient threw up and subsequently became hypoxic there was clearly evidence of witnessed aspiration anesthesia intubated the patient, procedure was terminated, and the patient was transferred to the ICU, this consult was initiated. Patient is now on assist- control rate of 20 tidal volume 500 FiO2 70% PEEP of 10 ABG is pending, earlier ABG showed profound hypoxia patient is on propofol at 50 mcg/kg/min, next ABG is pending. Chest x-ray showed chronic changes without evidence of acute pulmonary disease. 12/27/2023 Patient is seen and evaluated with family at bedside; remains in the ICU intubated and mechanically ventilated. - ABG showed a pO2 of 99 pCO2 31 pH of 7.44. -- Remains on Eraxis daptomycin and Zosyn patient is intermittently requiring Dilaudid, Ativan does not seem to help his agitation and restlessness. -- Continues to have leakage around the jejunostomy tube, and patient is undergoing the J-tube exchange today. Family is at bedside, seems to be quite anxious about his overall condition, and I explained to the that we are doing the best we can considering his critical illness situation and critical illness polyneuropathy. Patient is profoundly weak, and weaning the patient from mechanical ventilation is almost impossible. At least not at this point yet WBC count is 10.9 hemoglobin is 8.1 basic metabolic profile is normal BUN is 46 creatinine 1.90 patient has been off hemodialysis since the . Chest x- ray continues to show stable findings with right upper lobe opacity and right lower lobe opacity and possibly a small right-sided pleural effusion ----Continue ventilatory support, now on IMV mode rate of 16 with pressure support of 14 Continue Precedex and use Dilaudid 0.5 mg every 2-3 hours as needed. Nutritional support patient is now on TPN, Possible J-tube changed today for J- tube malfunction Continue antibiotics including daptomycin and Zosyn, Eraxis was added by infectious disease 12/28/2023 the patient is seen and evaluated in room at bedside; continues to be afebrile, the patient is on the ventilator through the trach FiO2 is currently stable at 30% no significant pleural effusion clinically patient on requiring any pressor support still having drainage around his jejunostomy tube patient dialysis catheter has been discontinued. Patient white count normalized to 7.6, creatinine is 1.51 patient with pneumonia with a sputum showing Citrobacter and Pseudomonas aeruginosa, the patient sputum repeat is still growing Citrobacter and Pseudomonas sensitive to the Pseudomonas is pending continue with Zosyn -patient did have a positive blood culture with staph epi that was oxacillin resistant as the patient did have a PICC line and the dialysis catheter he is on daptomycin repeat blood culture currently growing oxacillin sensitive staph epi, the patient dialysis catheter has been discontinued Has been sent for the culture -patient also have significant excoriation around his jejunostomy tube site which is still leaking Eraxis was added which will be continued as the patient fever pattern has improved and the patient white count has normalized once again discussed with the nursing staff to apply Triad cream which was discussed yesterday but not applied and monitor clinical course closely 12/29/2023 Patient is seen and evaluated with family members at bedside; remains intubated and mechanically ventilated -- ABG showed a pO2 of 105 pCO2 31 pH of 7.45. Remains on Precedex; multiple antibiotics and antifungal including Eraxis daptomycin and Zosyn. -- chest x-ray is showing improvement in his right upper lobe airspace disease/pulmonary abscess. Right lower lobe seems about the same with chronic opacity and possibly some small right-sided pleural effusion. --Family is at bedside, patient is arousable but does not follow any instructions. Gets extremely restless and agitated easily hence patient is receiving Dilaudid which seems to be working much better for this patient than benzodiazepines --possibly transfer the patient to a select care specialty. 12/30/2023 Evaluated in follow-up in the intensive care unit. He remains on the mechanical ventilator. Status post tracheostomy. There has been a decrease in the amount of leakage around the J-tube site he continues on a gravity flow. TPN is infusing tube feedings remain on hold at this time. No bowel movement reported for the last 5 days. X-ray today reveals extensive pleural parenchymal opacities throughout the right with at least a moderate pleural effusion. Mild patchy densities left mid and lower lung are also similar. Blood work reveals a white blood cell count 11.5, hemoglobin 8.1, platelet count of 78, sodium 142, potassium 4.2, BUN of 42, creatinine of 1.22, Phos of 2.3, magnesium 1.9. Patient continues on IV anidulafungin IV Zerbaxa IV daptomycin. Patient is currently sedated with propofol and also Precedex which is currently on hold at this time. December 31, 2023: ICU. Patient continues to do poorly. On propofol 35 mics. Also getting IV Dilaudid and IV Ativan.. Telemetry shows sinus rhythm. J-tube feeding has been discontinued. Significant output through the Abarca bag and around the G-tube site. Patient also putting out through the RAYA drain on the right side. Getting TPN and lipids. Patient is antimicrobial include iv aniedulefungin, IV ceftolozane/tazobactam, IV daptomycin Advance care planning [October 31, 2023] I met with patient's at the bedside. Went through in detail with patient is overall very poor clinical status. Chances of any meaningful recovery next to minimal. I also did mention that patient in my opinion was not stable to go to chronic ventilator setting. I suggested comfort care/hospice. I did not feel and why all honesty that patient is benefiting any further from the treatment we are giving him in fact causing probably more suffering. I also spoke to patient's daughter outside in the waiting room. Total time spent about 50 minutes with over 30 minutes of discussion. Later I called Dr. Luther JIMENEZ the community advocate after he received a text that family was expressing that some physician expressed he was doing better and giving hope. I spoke to nurse Lemos in the evening and she and Dr. JIMENEZ did go and talk to patient's family at the bedside later. January 01, 2024: ICU. FiO2 30 and a PEEP of 5. Continues to have increased drainage at the G-tube site. Wound VAC in place over the incision. RAYA drain continues to put out excretions. Good urine output. Drips include IV propofol at 20 mics, also getting IV Ativan and Dilaudid. Patient also keeping getting TPN lipids. Spoke to the patient's at the bedside. No further questions. I did speak to Dr. Irby from general surgery. Hence it is both our impression again that changing the tube will not make any difference to the bigger picture. And probably futile. Dr. Irby will be speaking to the family today. David from social science research assistant did ask about of family meeting. I did reiterate that I spoken at length to the a few times and also the daughter. Dr. Jimenez also spoke to the and Dr. Irby will be speaking with the today. Prognosis remains to be very poor. I did tell the in my opinion probably the patient is not r a candidate for long-term facility. Will community advocate Dr. Jimenez determine if the patient is a candidate for long-term chronic ventilator facility. January 02, 2024: ICU. FiO2 30 PEEP of 5. Telemetry sinus rhythm. Drips include propofol at 20 mics. Patient getting TPN lipids. Receiving 1 unit of packed red blood cell. Patient was having a breakdown around the tracheostomy stoma site. With a cuff leak. G-tube site is continues to have increasing output. Wound VAC in place. RAYA drains also having increasing output. Patient sister and daughter from [place] from out of town. Earlier they spoke at length with Dr. alford from general surgery. Prognosis remains poor. January 03, 2024: ICU. FiO2 30 PEEP of 5. On propofol. 50 mics. Getting TPN lipids. Sinus rhythm. Wound VAC in place. Drainage around the j-tube site. RAYA drain continues to drain. Patient somewhat sedated. at the bedside. Later social science research assistant David inform me that the surgical team Dr. Irby has suggested possible you have [facility], to which family is trying to obtain transferred to. Per Dr. Jimenez note patient has been decline by long-term care twice. Prognosis remains poor. at the bedside. Had no questions. Brother Nathan is present. January 04, 2024: ICU. FiO2 30 PEEP of 5. Propofol was held this morning. Getting TPN lipids. Sinus rhythm. Wound VAC remains in place. Continues to have drainage around the J-tube. RAYA drain continues to have output. at the bedside. She had no questions. Antibiotics in place. January 05, 2024: ICU. FiO2 30 PEEP of 5. Audibly sounding congested. Getting TPN lipids. Sinus rhythm. Wound VAC in place. Drainage around J-tube site. RAYA output continues. No family at bedside. Getting antibiotics. Lethargic January 06, 2024: ICU. FiO2 30 PEEP of 5. Patient is been off propofol since yesterday. Does move his head about. Try to open his eyes sometimes. Sinus rhythm. Blood pressure is running high yesterday. Started on Cleviprex. Hydralazine is being added. Continue to get TPN lipids. J-tube site remains excoriated. Wound VAC in place. RAYA output about 40 to 50 cc is a 12-hour shift. Patient elder daughter at the bedside. Eraxis was discontinued on January 02. Daptomycin is being discontinued by ID. Continue ceftolo'szone. CT abdomen pelvis done today: 3.1 cm organized fluid collection within the rectovesicular space concerning for abscess. No change in right upper lung 4.9 cm fluid collection with a fluid level. For possible pulmonary abscess. Moderate size right lung base multiloculated hydropneumothorax possibly abscess. Additional areas of air bronchograms. January 07, 2024: ICU. FiO2 30 PEEP of 5. Patient was taken down for pigtail drainage of the right lung abscess. About 200 cc of pus was obtained. Nurse informed me when they told him about for the procedure a lot of pus gushed out from the tracheostomy site. Dr. Love at the bedside did a bronchoscopy. Some pus was aspirated. No obvious fistula was noted. Patient is being back on Cleviprex drip. TPN lipids. January 08, 2024: ICU. Patient was having severe bouts of coughing. Unable to maintain ventilation. Patient was put on Nimbex drip and propofol drip. TPN lipids continue. Has a right chest wall pigtail catheter 90 cc output in 12- hour shift. Drainage from around the J-tube site. RAYA drain continues Ahmet to have an output. Abdominal wound is high since with the wound VAC in place. Patient sedated. January 09, 2024: ICU. Patient is off propofol and Cleviprex. Does open eyes. RAYA drain. About 40 cc last 24 hours. J-tube site continues to have increased output. Requiring dressing change every so often. Wound VAC in place. Patient getting Dilaudid and Ativan. Telemetry shows sinus rhythm. 40 cc out of the pigtail drainage. Patient started on ciprofloxacin and tobramycin. Remains on TPN and lipids. Patient's eldest daughter and at the bedside. No new questions. January 10, 2024: ICU. Overnight patient had become asynchronous. Had to be put on Precedex drip. Hemoglobin dropped down to 6.6. Monitor blood ordered. RAYA output about 100 cc last 24 hours. Wound VAC remains in place. TPN lipid continues. Patient also has a leak in the right pigtail catheter. Sinus rhythm. Continues to have increased secretion at the G-tube site. Ventilator FiO2 30 and a PEEP of 5. at the bedside. Had no further questions. January 11, 2024: ICU. Patient remains on IV Precedex. TPN.'s RAYA output over 30 cc last 24 hours. Wound VAC remains in place. Sinus rhythm. FiO2 30 PEEP of 5. Pigtail with very little output. Spoke to Dr. Love who only spoke to the patient's at length. Gnosis poor. When I walked in patient's 2 daughters and the present. is very tearful crying hugging the patient. The daughter had no further questions January 12, 2024 Ahmet: ICU. Continues on IV Precedex. Getting TPN lipids. Wound VAC in place. Sensitive. FiO2 30 and a PEEP of 5. Patient's at the bedside. Had no questions. January 13, 2024: ICU. FiO2 30 PEEP of 5. Remains on Precedex 0.8 mg. Eyes open. Sometimes does track with head. Not moving limbs. Some decrease in output from the G-tube site. Wound VAC putting out about 100 cc every 12 hours. RAYA drain about 100 cc every [address] Russ met with the family earlier today. Patient's been made DNR. Telemetry sinus rhythm. Patient's and daughter at bedside. They have no questions January 14, 2024: ICU. FiO2 30. PEEP of 5. Patient is has eyes open and tracking. Urine output about 100 cc an hour. NG site output looks like gastric contents. RAYA site about 50 cc in the last 12 hours. Telemetry sinus rhythm. and daughter have asked for hospice consultation for informational visit. [facility]. I sat with them and the nurse and a full expression of the hospice involved involved. Several questions answered. Daughter does express that she would like to take the patient home. The other sibling will be coming on from [place] on Saturday. They want to hold on at least until then. January 15, 2024: ICU. FiO2 30 and a PEEP of 5. Getting CPAP today. Asynchronous better. J-tube site continues to have increase secretions. Sinus rhythm. Awake. Does move his head possibly to command. Remains on Precedex. Getting Dilaudid. Fair urine output. Has a air leak in the pigtail. Minimal output through the chest tube. RAYA drain continues to have an output. at the bedside. January 16, 2024: ICU. On the ventilator FiO2 30 and a PEEP of 5. Pressure support mode. Wound VAC remains in place. J-tube site continues to have output. RAYA drain putting out output. Remains on pressors Precedex and getting Dilaudid. Antibiotics per ID. Patient being planned to go home tomorrow with home hospice. at the bedside. Had no further questions. Being followed by social science research assistant David and home hospice team from [facility] The plan for tomorrow currently is as follows: -Hospice arranging for transport with portable ventilator, to home with family -Antibiotics as discussed with ID will be discontinued -Wound VAC to be removed prior to discharge per surgery -RAYA drain to remain in place with dressing changes at the J-tube site. Dressing changes at the incision site per surgery. -TPN lipids will be discontinued prior to discharge -Patient to be taken off Precedex by r community advocate January 21, 2024: ICU. Ventilator FiO2 30 and a PEEP of 5. Precedex drip. Sinus rhythm. Does wake up and follow commands. Weak in the limbs. Very little output through the RAYA drain. Wound VAC in place. Requiring Dilaudid for pain control close to every 2 hours. Over the weekend patient and family dec ided not for hospice. Patient is now full code instructions. Looking at long- term placement. Patient on tobramycin and ciprofloxacin and Diflucan per ID. Patient and daughter at the bedside.. Physical therapy in the room for passive movements. Family being educated. Since yesterday patient has been on pressure support./CPAP. Getting TPN lipids. January 22, 2024: ICU. Patient was on CPAP this morning. Plan was to take him to trach only this afternoon. Getting IV Precedex. Awake. Moves his head to command. Was able to move his right arm. Wound VAC remains in place. Right c hest tube/pigtail catheter in place. Some air leak. Minimal output from the right RAYA drain. Secretions persist through the left J-tube site. at the bedside. Spoke to the social science research assistant David. Looking into long-term placement. 01/23/24 Patient is evaluated in the ICU at the bedside. Feels anxious today, precedex is being weaned. He is awake alert. He is edematous. Abdominal wound vac in place. Right chest tube/pigtail in place. 55 ML of drainage overnight. Right sided RAYA drain. J tube in place. On TPN. He is pending approval for select specialty vs. [facility]. Blood work today reveals a sodium level of 131. Continues on IV Ciprofloxacin/ IV fluconazole. 01/24/2024 Patient remains in the intensive care unit as remains at the bedside. He was weaned off the Precedex today did receive a dose of Ativan this morning however his mood has much improved. Abdominal wound VAC in place with evidence of purulent drainage in the canister. He has had 15 mL of drainage overnight from the right sided chest tube. J-tube remains in place. He continues on TPN. He continues on IV ciprofloxacin and IV fluconazole with plans for repeat abdominal pelvis CT today by infectious disease and consider discontinuation of antibiotics afterwards. Sodium level today is 130. Still pending approval for discharge to LTAC versus [facility]. 01/25/2024 Patient remains in the intensive care unit he continues off IV Precedex at this time. Continues with TPN. Repeat chest abdomen pelvis CT completed yesterday which shows a decrease seen in the hydropneumothorax within the right lung base with drainage catheter there is no change in the bibasilar infiltrates and small left effusion. There is interval development of a dilated small bowel loop in the mid abdomen consistent with either a focal ileus or partial obstruction. There are findings suggestive of acute diverticulitis of the sigmoid colon with a small pericolic phlegmon abscess however is decreasing in the interval from compared in the prior study from 3.4 cm to 3 cm. There is moderate anasarca and the peritoneal dialysis catheter and small bowel drainage tube unchanged in position. Blood work today reveals a white blood cell count of 20.1, hemoglobin 8.3, sodium 131, BUN of 21, creatinine 0.66, magnesium 1.7. He is on IV Cipro. IV Flagyl was added today by infectious disease. Was made a full code at request of family. 01/26/2024 Patient remains in the ICU. More awake alert and oriented today. He continues on the trach collar. Sounds less congested. Continues on IV cipro and IV flagyl. White blood cell count better today at 16.3. Hgb 7.2. Sodium 130, potassium 3.4. Continues on TPN. 01/27/2024 Patient is seen in follow-up continues to be in the ICU with multiple consultations following. Family at the bedside and patient is more awake although continues with bronchial congestion and frequent suctioning with the trach collar. Patient remains off Precedex. Patient continues on antibiotics for possible lung abscess that was positive for Pseudomonas with a persistent air leak. Minimal output of the pigtail catheter noted. FiO2 is 40% trach collar maintained on 10 L oxygen. Patient continues on TPN and will adjust accordingly per dietary and pharmacy. Overall prognosis remains extremely poor. Patient remains full code. Per nursing staff patient was denied from [facility] specialties with case management/social work following. 01/28/2024 Patient is eval in follow-up today in the intensive care unit. He had an axillary temp 101.6 for this reason a septic protocol was done including urinalysis blood cultures and viral panel. He remains on IV cipro and IV flagyl. Airleak to the chest tube remains to suction. He continues on a trach collar 40% FiO2 with oxygen at 8 L. He continues on TPN and lipids adjustments per dietary and pharmacy. We are currently not using the J-tube for feedings at this time. He has a wound VAC in place to the midline abdominal incision. He is more awake alert and oriented and less agitated. Sodium level today is 133. Renal function is within normal limits. 01/29/2024 Patient is evaluated today in the ICU with family at the bedside. He continues to have elevated temps. He is more lethargic. White count 20.2 today. Septic work up started. Repeat urinalysis not overly suggesting of infection. Viral panel negative. Chest xray today reveals patchy and confluent bilateral airspace disease similar to slightly worsened. Right-sided pleural catheter demonstrated. There is similar small right pleural effusion. He was started on IV vancomyin, IV meropenem and IV metronidazole. The cipro has been discontinued. Lactic acid 2.3. Sodium 134, renal function normal. Hgb 7.6. Tube feedings remain on hold. Not safe to restart and he continues on TPN/Lipids. 01/30/2024 Patient evaluated today in follow up. Remains in the ICU. Underwent bronchoscopy and repair of a tear in the tracheostomy cuff. Deep sputum culture pending. Patient remains on the mechanical ventilator with ABGs today showing pH level of 0.33, pCO2 of 59, pO2 of 152, HCO3 of 41, total CO2 of 33, hemoglobin 6.6. Lactic acid has normalized. White blood cell count 19.3 today hemoglobin 7.3. Patient is continued on IV propofol as well as backs. Continues on antibiotics in the form of IV vancomycin, IV meropenem, IV metronidazole. Continues on TPN lipids. Chest xray improved throughout both lung ramirez with mild improved aeration at the right lung base. No pneumothorax present. Right-sided chest tube remains in place to suction. 01/31/2024 Patient evaluated today in follow up in the intensive care unit. Remains on the mechanical ventilator, 50% FiO2. Family at the bedside and hoping for extubation today. Continues on TPN/Lipids. Labs today reveal white blood cell count 15.4, hgb 7.0, platelet count 169. Sodium 136, potassium 5.4. BUN 29, creatinine 0.61. Chest xray today reveals ongoing multifocal patchy and confluent airspace disease. A small to moderate right pleural effusion may be slightly increased. Sputum culture from bronchoscopy continues to show pseudomonas. Chest tube remains in place. on IV vancomycin and IV meropenem. 02/01/2024 Evaluated today in follow-up in the intensive care unit. Patient remains on mechanical ventilator with a 50% FiO2. His repeat sputum cultures from the bronchoscopy continue to show Pseudomonas. He continues on IV vancomycin and IV meropenem infectious diseases following closely. He continues with a wound VAC to his midline abdominal incision. Per surgery they feel that the fistula from his J-tube is mature he is currently off of tube feedings at this time though continues on TPN lipids. White blood cell count today is 15.3, hemoglobin 7.2, sodium 140, potassium 5.0, BUN of 33, creatinine 0.59. 2.0 mL of drainage over the last couple days. His chest x-ray today reveals no change in the marked diffuse cardiopulmonary process including scattered interstitial and partially consolidative infiltrates and bilateral pleural effusions which remain unchanged as compared to prior. 02/02/2024 Patient is evaluated today in follow-up in the intensive care unit. Patient remains in the mechanical ventilator with an FiO2 of 50%. His repeat sputum cultures are showing Pseudomonas now with drug resistance Pseudomonas is susceptible to amikacin and tobramycin with intermediate susceptibility to Zosyn and gentamicin. Antibiotics have been adjusted to Tobramycin and IV zosyn. February 03, 2024: I resumed care of the patient today. ICU. I was away last week. Patient had a tracheostomy leak. Underwent a bronchoscopy. And went back on the ventilator. Currently FiO2 5040% and a PEEP of 5. Drips include Precedex. Also getting TPN lipids. Patient getting Dilaudid 0.5 mg every 3 hours. And also Toradol. Good urine output. Right-sided RAYA drain was removed on January 27. Chest tube drain has minimal output. Patient continues to leak from the left-sided G-tube site. Patient's abdomen is rather distended. Surgery will be evaluating the patient today. Patient's and daughter at the bedside. That questions regarding the abdomen will defer the same to surgical team. Patient is extremely high risk for any surgery. Spoke to David the shoe parts caser. As of now LTAC had declined the patient. Patient also has a stage III on the buttock. Patient has a Shiley #8 tracheostomy tube. Checks x- ray today shows extensive interstitial and patchy bilateral infiltrates. New prominent air density below the diaphragm no peritoneum was to be excluded. Patient's bronchoscopy results show multidrug-resistant Pseudomonas. Patient has been treated with Zosyn and tobramycin-currently getting both.. Patient is awake. Attempts to talk. Able to follow commands. February 04, 2024: ICU. and the daughter at the bedside. is rather tearful. Yesterday evening Dr. Irby from surgery said surgical intervention highly risky including poor outcome. Second opinion was obtained from Dr. Pompa this morning. Also recommended possible hospice. Dr. Russ from pulmonary also spoke to the family. Prognosis remains poor. CT scan abdomen yesterday during showed large pneumoperitoneum. NG tube to suction. On propofol. Patient sedated. Sinus rhythm. Right-sided chest tube remains in place. J-tube site to gravity drainage. Getting TPN lipids. I also suggested comfort measures. February 04: ICU. Saw the patient this morning. and assist at the bedside. Remains on propofol. IVs include TPN and liquids. Right chest tube remains in place. Left-sided J-tube to drainage to gravity. On the ventilator with FiO2 40 and a PEEP of 5. Lethargic but able to follow some commands. February 05: ICU. Patient remains on propofol. A bit lethargic. Does follow simple commands. Getting TPN lipids. Right chest tube in place. Left J-tube to drainage to gravity. On the ventilator FiO2 50%. I walked in the room Dr. Alford from surgery today. Talk to the family. Spoke to Dr. Russ, Dr. Jason Leonard all feel baby should be hospice comfort care. I did express this to the family including the and his daughter and sister at the bedside. They also had a patient's daughter on the phone. All the treatment seems to be futile. Will be extremely appropriate for the patient to be comfort cares measures. I have asked for a multidisciplinary meeting with the family tomorrow at [address] Montes, Dr. Russ, Dr. Alford and myself. Wound VAC in place. February 06: ICU. Patient was taken off propofol put on Precedex. Following commands. Getting TPN lipids. Right chest tube remains in place. Minimal output. Left-sided J-tube to drainage to gravity continues with output. Remains on the ventilator. Wound VAC. NG tube remains in place. FiO2 35 and PEEP of 5. Patient continues to get intermittent Lasix.Currently on IV tobramycin and IV Zosyn. Multiple disciplinary meeting was held at 11 AM in the ICU today. Meeting was requested by myself. People present in the room in the meeting included Dr. Alford from general surgery, Dr. Montes from ID, Dr. Russ from community advocate, nurse Anitha, patient's , patient's eldest daughter, patient's brother and some other family members. Several questions were answered and all specialist gave the portion. Specifically: Dr. Montes from ID: No further change in antibiotic at present time. Per Dr. Alford: No surgical options patient extremely high risk from surgery and mood diabetes any benefit will be done. Per Dr. Russ: Will keep adjusting patient's vent settings in view of the tracheostomy. Patient just ask about taking the patient home with palliative care. Given patient's critical illness and the fact that this still wanted the patient to get better, sending her home is currently not an option in that case. February 07: ICU. Patient NG tube got pulled off. Had to be reinserted. Patient now on Precedex. Awake. Trying to speak. Patient's and daughter at the bedside. CT scan was ordered. states depending on the results they will decide about either to continued here or go home. Left J-tube remains dra maddox to gravity. Right chest tube remains in place. Wound VAC in place. TPN lipids continue. February 08: ICU. Awake. Following commands. On the ventilator. Sinus rhythm. Getting TPN lipids. Urine output fair. Wound VAC in place. Small output through the right-sided chest tube. J-tube to drainage remains. On Precedex. IV Patient's and daughter at the bedside. Wish to take patient home with palliative care with current medications. Pulmonary will coordinate with the home ventilator. Wound VAC and RAYA drainage per surgery. IV antibiotics per ID. Right chest tube to remain in place for hydropneumothorax. Chest x-ray had showed worsening infiltrates of the left side. Social work involved with the same. Active Medications Albuterol/Ipratropium (Ipratropium-Albuterol 3 Ml Neb) 3 ml INHALATION RT-QID [facility] Last Admin: 02/09/24 15:13 Dose: 3 ml Albuterol/Ipratropium (Ipratropium-Albuterol 3 Ml Neb) 3 ml INHALATION RT-Q2H PRN PRN Reason: Shortness Of Breath Or Wheezing Last Admin: 02/02/24 04:31 Dose: 3 ml Benzocaine (Benzocaine [place] 1 Can) 1 spray MUCOUS MEM TID PRN; Protocol PRN Reason: Mouth Irritation Bisacodyl (Bisacodyl 10 Mg Supp) 10 mg RECTAL DAILY [facility] Last Admin: 02/09/24 12:15 Dose: Not Given Dextrose/Water (Dextrose 50% Syringe 50 Ml) 25 ml IVP PER PROTOCOL PRN; Protocol PRN Reason: Hypoglycemia Last Admin: 01/03/24 06:18 Dose: 25 ml Dextrose/Water (Dextrose 50% Syringe 50 Ml) 50 ml IVP PER PROTOCOL PRN; Protocol PRN Reason: Hypoglycemia Last Admin: 12/25/23 18:03 Dose: 50 ml Hydralazine HCl (Hydralazine Hcl 20 Mg/Ml 1 Ml Vial) 10 mg IVP Q6HR PRN PRN Reason: SBP >140 Last Admin: 02/03/24 13:10 Dose: 10 mg Hydromorphone HCl (Hydromorphone 0.5 Mg/0.5 Ml Syringe) 0.5 mg IVP Q3HR PRN PRN Reason: Pain Last Admin: 02/09/24 11:59 Dose: 0.5 mg Piperacillin Sod/Tazobactam (Sod 3.375 gm/ Sodium Chloride) 100 mls @ 25 mls/hr IVPB Q8HR [facility]; Protocol Last Admin: 02/09/24 16:13 Dose: 25 mls/hr Propofol 1,000 mg/ IV Solution 100 mls @ 9.63 mls/hr IV .[id number] [facility]; Protocol Last Admin: 02/09/24 17:05 Dose: Not Given Tobramycin Sulfate 200 mg/ (Sodium Chloride) 105 mls @ 105 mls/hr IVPB Q36H [facility] Last Admin: 02/08/24 20:27 Dose: 105 mls/hr Dexmedetomidine HCl 400 mcg/ (IV Solution) 100 mls @ 5.375 mls/hr IV .[id number] [facility]; Protocol Last Admin: 02/09/24 15:19 Dose: 0.6 mcg/kg/hr, 16.125 mls/hr Fat Emulsion Intravenous 250 (ml/ IV Solution) 250 mls @ 21 mls/hr IV TuSa [facility] Last Admin: 02/08/24 08:09 Dose: 21 mls/hr Sodium Acetate 50 meq/Magnesium Sulfate 1.5 gm/Potassium Phosphate 6 mmol/Sodium Chloride 72 meq/Calcium Gluconate 1.25 gm/Potassium Chloride 50 meq/Parenteral Vitamin Supplement 10 ml/ Zinc/Copper/Manganese/Selenium 1 ml/ Amino Acids/Dextrose 1,096.5 mls @ 65 mls/hr IV .BY DURATION [facility] Last Admin: 02/09/24 12:34 Dose: 65 mls/hr Sodium Acetate 50 meq/Magnesium Sulfate 1.5 gm/Potassium Phosphate 6 mmol/Sodium Chloride 72 meq/Calcium Gluconate 1.25 gm/Potassium Chloride 50 meq/Amino Acids/Dextrose 1,085.5 mls @ 65 mls/hr IV .BY DURATION [facility] Last Admin: 02/09/24 17:05 Dose: Not Given Acetaminophen 1,000 mg/ IV (Solution) 100 mls @ 400 mls/hr IVPB Q6H PRN PRN Reason: Fever Last Admin: 02/09/24 12:38 Dose: 400 mls/hr Insulin Aspart (Insulin Aspart (Novolog) 100 Unit/Ml Vial) 0 unit SQ 0000,0600,1200,1800 [facility]; Protocol Last Admin: 02/09/24 12:51 Dose: 2 unit Lidocaine HCl (Lidocaine 2% (Pf) 20 Mg/Ml 5 Ml Vial) 60 mg INHALATION Q6HR PRN PRN Reason: Dyspnea Last Admin: 02/01/24 00:29 Dose: 60 mg Lorazepam (Lorazepam 2 Mg/Ml Inj) 1 mg IV Q6HR PRN PRN Reason: Anxiety Last Admin: 02/09/24 00:55 Dose: 1 mg Miscellaneous Information (Phosphorus Replacement Protoco 1 Each Misc) 1 each MISCELLANE DAILY PRN; Protocol PRN Reason: Per Protocol Miscellaneous Information (Magnesium Replacement Protocol 1 Each Misc) 1 each MISCELLANE DAILY PRN; Protocol PRN Reason: Per Protocol Miscellaneous Information (Potassium Replacement Protocol 1 Each Misc) 1 each MISCELLANE DAILY PRN; Protocol PRN Reason: Per Protocol Miscellaneous Information (Tobramycin Trough Due 1 Each Misc) 1 each MISCELLANE ONCE ONE Stop: 02/10/24 08:31 Miscellaneous Information (Tobramycin Peak Due 1 Each Misc) 1 each MISCELLANE ONCE ONE Stop: 02/10/24 11:01 Multi-Ingred Cream/Lotion/Oil/Oint (Hydrophilic Cream 180 Gm Tube) 1 applic TOPICAL BID [facility]; Protocol Last Admin: 02/09/24 08:51 Dose: 1 applic Multi-Ingredient Ointment (Zinc Oxide 20% Oint 28.4 Gm Tube) 1 applic TOPICAL BID PRN; Protocol PRN Reason: Skin Irritation Naloxone HCl (Naloxone 0.4 Mg/Ml 1 Ml Vial) 0.2 mg IV Q2M PRN PRN Reason: Opioid Reversal Ondansetron HCl (Ondansetron 4 Mg/2 Ml Vial) 4 mg IVP Q6HR PRN PRN Reason: Nausea And Vomiting Last Admin: 01/23/24 17:28 Dose: 4 mg Pantoprazole Sodium (Pantoprazole 40 Mg/10 Ml Vial) 40 mg IVP BID [facility] Last Admin: 02/09/24 08:51 Dose: 40 mg Petrolatum (Zinc Oxide Paste (Z-Guard) 1 Applic) 1 applic TOPICAL BID [facility]; Protocol Last Admin: 02/09/24 08:51 Dose: 1 applic Past medical history to include: GERD Social history: . No smoking. Physical examination: VITAL SIGNS: 99.1, 77, 23, 154 x 70, 95% on the ventilator 35% GENERAL: Eyes open. Attempts to talk EYES: Pupils equal. , tracking Conjunctiva edouard l. HEENT: External appearance of nose and ears normal, tracheostomy-. NG tube to intermittent suction NECK: JVD unable to assess; masses not palpable. HEART: First and second heart sounds are normal; edema, present LUNGS: Respiratory rate increased, decreased breath sounds right chest wall pigtail catheter ABDOMEN: Soft, some tenderness. Liver spleen not palpable, no masses palpable..jejunostomy tube-dressing in place, . RAYA drain. Incision with stitches with - wound VAC PSYCH: Unable to assess NEURO: Does lift his right arm. Attempts to talk INVESTIGATIONS, reviewed in the clinical context: February 08: White count 19.5 hemoglobin 7.2 platelets 421 potassium 3.[address] abdomen pelvis [February 07]: Results in chart February 07: White count 14.9 hemoglobin 7.5 platelets 368 potassium 4 BUN [address] abdomen pelvis [February 02] massive pneumoperitoneum with possibly right lower quadrant large bowel and/or small bowel perforation. Hyperemia and wall thickening of the cecum and ascending colon. Sputum [January 21] Pseudomonas aeruginosa-multiple drug-resistant February 02: White count 16.5 hemoglobin 8.6 platelets 385 sodium 142 potassium 3.1 BUN 37 creatinine 0.65 January 21: White count 14.9 hemoglobin 7.9 platelets 399 potassium 3.[address] abdomen pelvis [January 05]: 3.1 cm organized fluid collection within the rectovesicular space concerning for abscess. No change in right upper lung 4.9 cm fluid collection with a fluid level. For possible pulmonary abscess. Moderate size right lung base multiloculated hydropneumothorax possibly abscess. Additional areas of air bronchograms. January 05: White count 10.6 hemoglobin 7.6 platelets 111 sodium 137 potassium 3.5 BUN 44 creatinine 0.95 January 03: White count 13.4 hemoglobin 8.1 platelets 95 potassium 5.2 creati nine 1.1 albumin 1.8 Sputum culture [December 24] Citrobacter freundii, Pseudomonas aeruginosa Blood culture [December 24] Staphylococcus pettenkoferi December 24: White count 1.5 hemoglobin 8.2 platelets 106 potassium 3.8 BUN [address] chest abdomen without contrast [December 16] right upper lung cavitary lesion with air-fluid level in the posterior aspect and a larger cavitary lesion pos sibly within the lung parenchyma itself. Extending down towards the diaphragm additional airspace opacities in the left lung base. December 09: White count 26.1 hemoglobin 8.6 platelets 154 potassium 4.1 BUN 86 creatinine 3.31. Hemoglobin this morning was 6.6 prior to transfusion EEG-evidence of generalized cerebral dysfunction and sporadic intermittent higher amplitude sharply contoured waves mainly bifrontal. Showing cortical irritability. 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 Serosal fibrous adhesions. Viable margins. Sputum culture: [November 25]: Citrobacter freundii. Pseudomonas aeruginosa November 20: White count 14.4 hemoglobin 8.8 platelets 229 potassium 4.1 BUN [address] scan abdomen [November 19] possible small bowel obstruction Stool: C. difficile negative November 15: WBC 13 hemoglobin 7.7 platelets 248 potassium 4.3 creatinine 0.87 2D echo: EF 55 to 60%. Kidneys bladder: Unremarkable November 13: White count 12 hemoglobin 6.9 platelets 276 potassium 4.4 creatinine 1.21 magnesium 1.8 iron 6 TIBC 365% saturation 1.64 transferrin 261 ferritin 34.6 B12 569 folate 4.4 November 11: Creatinine 0.86 EGD: Large amount of retained solid liquid food noted in the stomach. Large superficial gastric antral ulceration involving most of the antrum extending into the pylorus causing pyloric stenosis. Biopsies were obtained. Chest x-ray film personally reviewed by me-scattered infiltrates Assessment plan: -Aspiration and gram-negative bacterial pneumonia a bilateral initially from retained gastric contents mostly food and liquids, causing acute hypoxic respiratory failure: On presentation:: Current x-ray showed some worsening of the left side. Subsequent bacterial pneumonia and lung abscess sputum culture November 25: Citrobacter freundii, Pseudomonas aeruginosa. December 13: Klebsiella oxytoca, Pseudomonas aeruginosa. December 29: Multidrug-resistant Pseudomonas aeruginosa IV meropenem-, IV Zosyn.IV ceftolozane/tazobactam, IV daptomycin, tobramycin- all discontinued Currently getting IV Zosyn and tobramycin -Large pneumoperitoneum likely from perforation. Has been told by Dr. Peñaloza and Dr. Pompa from surgery/[second opinion]. Extremely high risk for any surgery. Very poor outcome. -Right-sided hydropneumothorax with no improvement Pigtail catheter in place -Intermittent asynchronous with the ventilator. -January 28 patient underwent tracheostomy tube exchange and bronchoscopy with lavage by Dr. Love for a leak around the tracheostomy tube. Patient is a #8 Shiley tracheostomy tube. An air leak was resolved Previously had a leak. Currently resolved -Pain, multifactorial Getting Dilaudid as needed with Toradol -Sepsis with septicemia from above Patient received multiple antibiotics -Right l lung abscess, pigtail catheter placed January 07, 2024.: Slow to respond Initially about 200 cc of pus obtained. During the procedure large amount of pus poured out of the tracheostomy site when patient was rolled on the left side. Status post bronchoscopy with some lavage on 01/07/2024 - lung abscess larger 1 on the right side-patient cultures are growing Pseudomonas and Klebsiella oxytoca: , Received other antibiotics. Currently on Zosyn and tobramycin -Acute pulmonary edema and fluid overload from hypoalbuminemic state and fluids from IV.:: Has been getting Lasix and dialysis: Both held -Altered mentation. Possibly encephalopathy. Could be delirium.: Improvement CT brain [December 06] nothing acute Neurology following EEG-evidence of generalized cerebral dysfunction and sporadic intermittent higher amplitude sharply contoured waves mainly bifrontal. Showing cortical irritability. Keppra was started on December 07 -Critical care poly- Pedro neuropathy: Slow to respond PT OT -Gallstones, asymptomatic -Small l bowel perforation at site of jejunostomy tube tip with balloon..: Portion of small bowel resected. On November 24. New J-tube was placed.- drainage to gravity:-Now discontinued December 19: J-tube blocked. J-tube replaced on December 20 over wire December 21: Leaking around the J-tube site. Feeding held December 23: J feeding was started yesterday evening but again started leaking increasingly around the J-tube site-feeding held again December 24: J-tube feeding has been held. Patient is currently having increased drainage from the J-tube site -Acute kidney injury. Possible ATN from hypotensive shock: Resolved Renal ultrasound unremarkable. Started on renal replacement therapy on November 28. Last hemodialysis on December 17. Being followed by an nephrology. Good urine output. -Nutrition Jejunostomy tube placed November [address] Ewing Received TPN-this was discontinued. TPN lipids restarted on December 24 -Midline abdominal incision wound dehiscence Wound VAC in place -Acute recurrent atrial fibrillation-converted to sinus rhythm Received IV amiodarone. Cardiology following -Acute hypoxic respiratory failure from aspiration pneumonia, status post ventilator assisted: Reintubated November 25. FiO2 35 PEEP of 5 Tracheostomy tube-by Dr. Zepeda on December 09 Tracheostomy tube changed to #8 Shiley on January [address] Love -Septic shock, recovered -Hypertension, recurrent Had received Cleviprex. Hydralazine added -Intermittent hypotension: Corrected Intermittent use of Levophed. 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 Also anemia of blood draw. Iron deficiency anemia Received total of 8 units of blood IV iron. -Severe thrombocytopenia. Would consider coagulation disorder secondary to infection., In the setting of underlying lymphoma.: Fluctuating with infection: Improved Hematology following. 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 difficile ruled out. -Large superficial gastric antral ulceration involving the gastric antrum extending into the pylorus with gastric outlet obstruction. 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 -DNR made on January 12. Now full code with instructions on January 17. Patient is full code now Prognosis remains poor. and daughter wish to take the patient home with palliative care. Multiple consultants are to coordinate the same. Social work involved. Past Medical History Past Medical History: GERD/Reflux History of Any Multi-Drug Resistant Organisms: None Reported Past Surgical History: Heart Catheterization Additional Past Surgical History / Comment(s): colonsocopy,spinal injection, Past Anesthesia/Blood Transfusion Reactions: No Reported Reaction Past Psychological History: No Psychological Hx Reported Smoking Status: Never smoker Past Alcohol Use History: None Reported Past Drug Use History: None Reported
[2024-02-09 18:12] LABS: Glucose,Whole Blood 191 mg/dL (70-110)
--- NOTE | 2024-02-09 19:24 | P.PN ---
Subjective Progress Note Date: 02/09/24 No acute events. at bedside. Objective - Vital Signs Vital signs: Vital Signs Temp 99.1 F 02/09/24 16:00 Pulse 86 02/09/24 19:00 Resp 51 H 02/09/24 19:00 BP 206/125 02/09/24 05:00 Pulse Ox 95 02/09/24 19:00 FiO2 35 02/09/24 19:00 Intake & Output 02/09/24 02/09/24 02/10/24 06:59 18:59 06:59 Intake Total 2624.248 5888.5 93 Output Total 1630 1170 35 Balance -86.713 1264.5 58 Weight 108.8 kg Intake: IV 501 173 3 0.9 Normal Saline @ KVO 260 140 Normal Saline Pressure 36 33 3 Saline Piperacillin-Tazobactam 3 100 .375 gm In Sodium Chloride 0.9% 100 ml @ 25 mls/hr IVPB Q8HR [facility] Rx# :[id number] Tobramycin Sulfate 200 mg 105 In Sodium Chloride 0.9% 100 ml @ 105 mls/hr IVPB Q36H [facility] Rx#:[id number] Intake, IV Titration 491.703 5807.5 25 Amount ACETAMINOPHEN IV (For NPO 100 ) 1,000 mg In Empty Bag 1 bag @ 400 mls/hr IVPB Q6H PRN Rx#:[id number] Dexmedetomidine/0.9% NaCl 197.287 200 (Pmx) 400 mcg In Empty Bag 1 bag @ 0.2 MCG/KG/HR 5.375 mls/hr IV .[id number] [facility] Rx#:[id number] Piperacillin-Tazobactam 3 150 25 .375 gm In Sodium Chloride 0.9% 100 ml @ 25 mls/hr IVPB Q8HR [facility] Rx# :[id number] Sodium Acetate 50 meq 1096.5 Magnesium Sulfate gm 1.5 gm Potassium Phosphate 6 mmol Sodium Chloride 4Meq /ml Vial 72 meq Calcium Gluconate 1.25 gm Potassium Chloride 50 meq Mvi, Adult No.4 with Vit K 10 ml Trace (Conc-1Ml/ Dose) 1 ml In Amino Acids 5 %/Dextrose 20 % 1,000 ml @ 65 mls/hr IV .BY DURATION [facility] Rx#: [id number] TPN/PPN 845 715 65 TPN 845 715 65 Output: Chest Tube Drainage 0 0 Chest Tube Right 0 0 Gastric Drainage 150 50 Drainage 30 310 Left Abdomen 30 250 Medial Abdomen 60 Urine 1450 810 35 Other: Voiding Method Indwelling Catheter Indwelling Catheter ABP, PAP, CO, CI - Last Documented Arterial Blood Pressure 189/90 - Constitutional General appearance: Present: no acute distress - Gastrointestinal Gastrointestinal Comment(s): Distended, J-tube in place, wound VAC in place - Labs CBC & Chem 7: 02/09/24 04:51 02/09/24 04:51 Labs: Abnormal Lab Results - Last 24 Hours (Table) 02/08/24 02/09/24 02/09/24 Range/Units 23:37 04:49 04:51 WBC (3.8-10.6) k/uL RBC (4.30-5.90) m/uL Hgb (13.0-17.5) gm/dL Hct (39.0-53.0) % RDW (11.5-15.5) % Neutrophils # (1.3-7.7) k/uL ABG pH 7.51 H (7.35-7.45) ABG pCO2 32 L (35-45) mmHg ABG pO2 70 L (83-108) mmHg ABG HCO3 26 H (21-25) mmol/L ABG Total CO2 27 H (19-24) mmol/L Hemoglobin 7.3 L (13.0-17.5) gm/dL Chloride 115 H (98-107) mmol/L BUN 22 H (9-20) mg/dL Creatinine 0.65 L (0.66-1.25) mg/dL Glucose 146 H (74-99) mg/dL POC Glucose (mg/dL) 162 H (70-110) mg/dL Calcium 7.9 L (8.4-10.2) mg/dL 02/09/24 02/09/24 02/09/24 Range/Units 04:51 05:30 12:25 WBC 19.5 H (3.8-10.6) k/uL RBC 2.37 L (4.30-5.90) m/uL Hgb 7.2 L (13.0-17.5) gm/dL Hct 22.9 L (39.0-53.0) % RDW 15.7 H (11.5-15.5) % Neutrophils # 14.8 H (1.3-7.7) k/uL ABG pH (7.35-7.45) ABG pCO2 (35-45) mmHg ABG pO2 (83-108) mmHg ABG HCO3 (21-25) mmol/L ABG Total CO2 (19-24) mmol/L Hemoglobin (13.0-17.5) gm/dL Chloride (98-107) mmol/L BUN (9-20) mg/dL Creatinine (0.66-1.25) mg/dL Glucose (74-99) mg/dL POC Glucose (mg/dL) 147 H 155 H (70-110) mg/dL Calcium (8.4-10.2) mg/dL 02/09/24 Range/Units 18:10 WBC (3.8-10.6) k/uL RBC (4.30-5.90) m/uL Hgb (13.0-17.5) gm/dL Hct (39.0-53.0) % RDW (11.5-15.5) % Neutrophils # (1.3-7.7) k/uL ABG pH (7.35-7.45) ABG pCO2 (35-45) mmHg ABG pO2 (83-108) mmHg ABG HCO3 (21-25) mmol/L ABG Total CO2 (19-24) mmol/L Hemoglobin (13.0-17.5) gm/dL Chloride (98-107) mmol/L BUN (9-20) mg/dL Creatinine (0.66-1.25) mg/dL Glucose (74-99) mg/dL POC Glucose (mg/dL) 191 H (70-110) mg/dL Calcium (8.4-10.2) mg/dL Assessment and Plan Plan: Per , family has made decision to take patient home on palliative care and try a holistic approach. She did inquire on wound VAC and recommendation at this time would be for wet-to-dry dressing over the site once patient is at home. Continue plan for home with palliative care per patient and patient's family request.
--- NOTE | 2024-02-09 22:38 | P.PN ---
Subjective Progress Note Date: 02/09/24 Principal diagnosis: Reason for follow-up is pneumonia and diverticulitis Patient is 73-year-old with male initial presentation to the hospital on 11/12/2023 after the patient did have aspiration while undergoing elective endoscopy, diagnosed with a non-Hodgkin lymphoma subsequently did have exploratory laparotomy for perforated small bowel, abdominal washout and feeding jejunostomy tube patient did require dialysis catheter placement for dialysis during this hospital stay which was subsequently discontinued, and tracheostomy for respiratory failure. On today's evaluation that is 02/09/2024, Patient did spike a fever of 100.5 F this morning patient is not tachycardic or hypotensive no need for pressor support FiO2 is currently stable at 35% and no significant purulent secretion through the ET vomiting or diarrhea reported by the nursing staff. Patient white count is up to 19.5 creatinine 0.65 Objective - Vital Signs Vital signs: Vital Signs Temp 100.5 F H 02/09/24 08:00 Pulse 89 02/09/24 09:00 Resp 26 H 02/09/24 09:00 BP 206/125 02/09/24 05:00 Pulse Ox 95 02/09/24 09:00 FiO2 35 02/09/24 09:00 Intake & Output 02/08/24 02/09/24 02/09/24 18:59 06:59 18:59 Intake Total 6214.506 2268.287 276 Output Total 1335 1630 210 Balance -78.962 -86.713 66 Weight 108.8 kg Intake: IV 240 501 46 0.9 Normal Saline @ KVO 240 260 40 Normal Saline Pressure 36 6 Saline Piperacillin-Tazobactam 3 100 .375 gm In Sodium Chloride 0.9% 100 ml @ 25 mls/hr IVPB Q8HR [facility] Rx# :[id number] Tobramycin Sulfate 200 mg 105 In Sodium Chloride 0.9% 100 ml @ 105 mls/hr IVPB Q36H [facility] Rx#:[id number] Intake, IV Titration 194.038 197.287 100 Amount Dexmedetomidine/0.9% NaCl 194.038 197.287 100 (Pmx) 400 mcg In Empty Bag 1 bag @ 0.2 MCG/KG/HR 5.375 mls/hr IV .[id number] [facility] Rx#:[id number] TPN/PPN 780 845 130 TPN 780 845 130 Lipid 42 Fat Emulsion 20% 250 ml 42 In Empty Bag 1 bag @ 21 mls/hr [facility] Rx#: [id number] Output: Chest Tube Drainage 0 Chest Tube Right 0 Gastric Drainage 110 150 Drainage 30 Left Abdomen 30 Urine 1225 1450 210 Other: Voiding Method Indwelling Catheter Indwelling Catheter ABP, PAP, CO, CI - Last Documented Arterial Blood Pressure 165/71 - Exam GENERAL DESCRIPTION: An elderly male intubated with trach RESPIRATORY SYSTEM: Unlabored breathing , coarse breath sounds anteriorly HEART: S1 S2 regular rate and rhythm , ABDOMEN: Soft , abdominal distention and tenderness EXTREMITIES: No edema feet - Labs CBC & Chem 7: 02/09/24 04:51 02/09/24 04:51 Labs: Abnormal Lab Results - Last 24 Hours (Table) 02/08/24 02/08/24 02/08/24 Range/Units 11:38 17:32 23:37 WBC (3.8-10.6) k/uL RBC (4.30-5.90) m/uL Hgb (13.0-17.5) gm/dL Hct (39.0-53.0) % RDW (11.5-15.5) % Neutrophils # (1.3-7.7) k/uL ABG pH (7.35-7.45) ABG pCO2 (35-45) mmHg ABG pO2 (83-108) mmHg ABG HCO3 (21-25) mmol/L ABG Total CO2 (19-24) mmol/L Hemoglobin (13.0-17.5) gm/dL Chloride (98-107) mmol/L BUN (9-20) mg/dL Creatinine (0.66-1.25) mg/dL Glucose (74-99) mg/dL POC Glucose (mg/dL) 194 H 175 H 162 H (70-110) mg/dL Calcium (8.4-10.2) mg/dL 02/09/24 02/09/24 02/09/24 Range/Units 04:49 04:51 04:51 WBC 19.5 H (3.8-10.6) k/uL RBC 2.37 L (4.30-5.90) m/uL Hgb 7.2 L (13.0-17.5) gm/dL Hct 22.9 L (39.0-53.0) % RDW 15.7 H (11.5-15.5) % Neutrophils # 14.8 H (1.3-7.7) k/uL ABG pH 7.51 H (7.35-7.45) ABG pCO2 32 L (35-45) mmHg ABG pO2 70 L (83-108) mmHg ABG HCO3 26 H (21-25) mmol/L ABG Total CO2 27 H (19-24) mmol/L Hemoglobin 7.3 L (13.0-17.5) gm/dL Chloride 115 H (98-107) mmol/L BUN 22 H (9-20) mg/dL Creatinine 0.65 L (0.66-1.25) mg/dL Glucose 146 H (74-99) mg/dL POC Glucose (mg/dL) (70-110) mg/dL Calcium 7.9 L (8.4-10.2) mg/dL 02/09/24 Range/Units 05:30 WBC (3.8-10.6) k/uL RBC (4.30-5.90) m/uL Hgb (13.0-17.5) gm/dL Hct (39.0-53.0) % RDW (11.5-15.5) % Neutrophils # (1.3-7.7) k/uL ABG pH (7.35-7.45) ABG pCO2 (35-45) mmHg ABG pO2 (83-108) mmHg ABG HCO3 (21-25) mmol/L ABG Total CO2 (19-24) mmol/L Hemoglobin (13.0-17.5) gm/dL Chloride (98-107) mmol/L BUN (9-20) mg/dL Creatinine (0.66-1.25) mg/dL Glucose (74-99) mg/dL POC Glucose (mg/dL) 147 H (70-110) mg/dL Calcium (8.4-10.2) mg/dL Assessment and Plan (1) Sepsis Current Visit: Yes Status: Acute Code(s): A41.9 - SEPSIS, UNSPECIFIED ORGANISM SNOMED Code(s): 59359706 (2) Pneumonia Current Visit: Yes Status: Acute Code(s): J18.9 - PNEUMONIA, UNSPECIFIED ORGANISM SNOMED Code(s): 453316754 (3) Bacteremia Current Visit: Yes Status: Acute Code(s): R78.81 - BACTEREMIA SNOMED Code(s): 5701012 (4) Peritonitis Current Visit: Yes Status: Acute Code(s): K65.9 - PERITONITIS, UNSPECIFIED SNOMED Code(s): 95886539 Plan: 1 the patient did have a new fever also noticed to have worsening of his respiratory status concerning for pneumonia 2repeat blood culture have been negative sputum culture from 1127 is growing drug-resistant Pseudomonas aeruginosa sensitive only to tobramycin amikacin intermediate sensitive to Zosyn patient also have a bronchoscopy on 1128 that specimen is growing Pseudomonas with multidrug resistant pattern and intermediate to Zosyn sensitive to amikacin and tobramycin 3patient did have CT abdominal pelvis with evidence of large pneumoperitoneum concerning for possible large/small bowel perforation patient has been evaluated by Dr. subramanian for a second opinion from surgical standpoint and has been considered high risk for any surgical intervention, patient repeat CT abdominal pelvis did not show any improvement 4patient did have a new fever and also noted to have worsening of the white count blood cultures will be obtained from the PICC line peripherally and if any further fever or further worsening of the white count will need to add gram-positive coverage 5patient currently will be treated with Zosyn and tobramycin, the patient creatinine is stable, the patient care discussed in detail with the and the daughter multiple question answered again Dictation was produced using [employer] dictation software. please excuse any grammatical, word or spelling errors. Time with Patient: Less than 30
[2024-02-09 23:29] LABS: Glucose,Whole Blood 150 mg/dL (70-110)
[2024-02-10] MEDS: LORazepam 2 MG/ML INJ IV STA (00:49)
--- NOTE | 2024-02-10 03:11 | XR ---
EXAM: XR Chest, 1 View CLINICAL HISTORY: ITS.REASON XR Reason: desat TECHNIQUE: Frontal view of the chest. COMPARISON: No relevant prior studies available. FINDINGS: Lungs: Extensive bilateral airspace consolidations, consistent with multilobar pneumonia. Pleural space: Unremarkable. No pneumothorax. Heart: Unremarkable. No cardiomegaly. Mediastinum: Unremarkable. Normal mediastinal contour. Bones/joints: Unremarkable. No acute fracture. Tubes, lines and devices: Tracheostomy tube. Feeding tube terminates below the diaphragm. RIGHT pigtail catheter. Upper abdomen: Free air in the abdomen is suspected, recommend CT abdomen pelvis if clinically indicated. IMPRESSION: 1. Free air in the abdomen is suspected, recommend CT abdomen pelvis if clinically indicated. 2. Extensive bilateral airspace consolidations, consistent with multilobar pneumonia. 3. Tracheostomy tube. 4. Feeding tube terminates below the diaphragm. <MYCVCSECTION> Communications: 02/10/24 03:19 Verify Receipt Verified receipt with [employer] Jane Almonte, confirmed results will be received by Dr. Andrei Obando on 02/09 03:19 (-05:00)
[2024-02-10 06:30] LABS: Glucose,Whole Blood 173 mg/dL (70-110)
[2024-02-10] MEDS: TOBRAMYCIN PEAK DUE 1 EACH MISC MISCELLANE ONE (11:48)
[2024-02-10] MEDS: TOBRAMYCIN TROUGH DUE 1 EACH MISC MISCELLANE ONE (11:48)
[2024-02-10 12:06] LABS: Glucose,Whole Blood 186 mg/dL (70-110)
[2024-02-10] MEDS ORDERED: MAGNESIUM SULFATE IV SCH (12:30)
[2024-02-10] MEDS ORDERED: SODIUM ACETATE IV SCH (12:30)
[2024-02-10] MEDS ORDERED: [UNRECOGNIZED DRUG - OTHER] IV SCH (12:30)
[2024-02-10] MEDS ORDERED: POTASSIUM PHOSPHATE IV SCH (12:30)
--- NOTE | 2024-02-10 12:34 | P.PN ---
Subjective Progress Note Date: 02/10/24 No changes or acute events Objective - Vital Signs Vital signs: Vital Signs Temp 98.3 F 02/10/24 08:00 Pulse 90 02/10/24 11:48 Resp 36 H 02/10/24 11:00 BP 142/93 02/10/24 11:00 Pulse Ox 93 L 02/10/24 11:00 FiO2 40 02/10/24 11:36 Intake & Output 02/09/24 02/10/24 02/10/24 18:59 06:59 18:59 Intake Total 2434.5 2435.613 661.833 Output Total 1170 1145 575 Balance 1264.5 1290.613 86.833 Weight 108.3 kg Intake: IV 173 253 518 0.9 Normal Saline @ KVO 140 220 95 Normal Saline Pressure 33 33 48 Saline Piperacillin-Tazobactam 3 50 .375 gm In Sodium Chloride 0.9% 100 ml @ 25 mls/hr IVPB Q8HR [facility] Rx# :[id number] TPN 325 Intake, IV Titration 1546.5 1402.613 78.833 Amount ACETAMINOPHEN IV (For NPO 100 ) 1,000 mg In Empty Bag 1 bag @ 400 mls/hr IVPB Q6H [facility] Rx#:[id number] Dexmedetomidine/0.9% NaCl 200 281.113 78.833 (Pmx) 400 mcg In Empty Bag 1 bag @ 0.2 MCG/KG/HR 5.375 mls/hr IV .[id number] [facility] Rx#:[id number] Piperacillin-Tazobactam 3 150 25 .375 gm In Sodium Chloride 0.9% 100 ml @ 25 mls/hr IVPB Q8HR [facility] Rx# :[id number] Sodium Acetate 50 meq 1096.5 1096.5 Magnesium Sulfate gm 1.5 gm Potassium Phosphate 6 mmol Sodium Chloride 4Meq /ml Vial 72 meq Calcium Gluconate 1.25 gm Potassium Chloride 50 meq Mvi, Adult No.4 with Vit K 10 ml Trace (Conc-1Ml/ Dose) 1 ml In Amino Acids 5 %/Dextrose 20 % 1,000 ml @ 65 mls/hr IV .BY DURATION [facility] Rx#: [id number] TPN/PPN 715 780 65 TPN 715 780 65 Output: Chest Tube Drainage 0 0 0 Chest Tube Right 0 0 0 Gastric Drainage 50 Drainage 310 Left Abdomen 250 Medial Abdomen 60 Urine 810 1145 575 Other: Voiding Method Indwelling Catheter Indwelling Catheter ABP, PAP, CO, CI - Last Documented Arterial Blood Pressure 183/165 - Constitutional General appearance: Present: no acute distress - Gastrointestinal Gastrointestinal Comment(s): Distended, J-tube in place, wound VAC in place - Labs CBC & Chem 7: 02/09/24 04:51 02/09/24 04:51 Labs: Abnormal Lab Results - Last 24 Hours (Table) 02/09/24 02/09/24 02/10/24 Range/Units 18:10 23:28 06:29 POC Glucose (mg/dL) 191 H 150 H 173 H (70-110) mg/dL 02/10/24 Range/Units 12:04 POC Glucose (mg/dL) 186 H (70-110) mg/dL Assessment and Plan Plan: Per , palliative care likely not an option as it will be difficult to manage ventilator at home. Family now opting for hospice care at home. I did receive a message about wound VAC replacement and at this point with family decision, recommend discontinuing wound VAC. Continue with plan for hospice.
--- NOTE | 2024-02-10 13:58 | P.PN ---
Subjective Progress Note Date: 02/10/24 Principal diagnosis: Abdominal pain. This is a 73-year-old white male with history of chronic abdominal pain for the last 8 months has been treated with Protonix 40 mg daily for the last 3 months with no improvement. Patient had a 22 pound weight loss in the last [address] of the abdomen and pelvis 3 weeks ago showed thickening of the antral wall with pathological adenopathy posterior to the stomach suspicious of neoplasm. Today the patient underwent elective upper endoscopy to evaluate further, patient received IV sedation by anesthesia endoscope was inserted into the mouth, esophagus was intubated without any difficulty there was evidence of large amount of liquid and solid food noted in the stomach suggestive of gastric outlet obstruction. Scope could not be advanced through the pylorus, however in the prepyloric area there was a large superficial ulceration identified with multiple biopsies were done from this area. The body cardia and fundus could not adequately visualize because of large amount of retained food in the stomach. Scope was withdrawn back to the stomach and upon careful examination the mucosa of the antrum body and cardia as well as the fundus appeared normal. Procedure was being performed and biopsies were done patient threw up and subsequently became hypoxic there was clearly evidence of witnessed aspiration anesthesia intubated the patient, procedure was terminated, and the patient was transferred to the ICU, this consult was initiated. Patient is now on assist- control rate of 20 tidal volume 500 FiO2 70% PEEP of 10 ABG is pending, earlier ABG showed profound hypoxia patient is on propofol at 50 mcg/kg/min, next ABG is pending. Chest x-ray showed chronic changes without evidence of acute pulmonary disease. Patient was seen and examined today on 11/13/2023, remains in the ICU, intubated mechanically ventilated, on assist-control rate of 20 tidal volume 500 FiO2 50% and PEEP of 10 ABG showed a pO2 of 143 pCO2 47 pH of 7.28 hence PEEP was cut down to 6, and increased rate to 22. Patient is still requiring IV fluid at 100 cc/h/LR. Requiring norepinephrine at 0.08 mcg/kg/min he is also on propofol at 50 mg/kg/min antibiotics arce patient is receiving Zosyn. Chest x-ray is showing worsening infiltrates specially in the left lung. This could be related to aspiration pneumonia. Patient had witnessed aspiration during endoscopy/upper endoscopy.WBC count is 14 hemoglobin 7.6 basic metabolic profile is normal BUN is 26 creatinine 1.57 obviously the patient sustained some acute kidney injury baseline creatinine 0.86 patient had received fluids over the last 24 hours, remains on fluids at 100 cc/h Patient with seen and examined today on 11/14/2023, patient remains in the ICU, intubated and mechanically ventilated. Failed weaning trial yesterday and he became quite agitated and desaturated once he went off propofol. Had to be placed back on assist-control mode of mechanical ventilation and sedation. Today the patient is on assist-control rate of 22 tidal volume 500 FiO2 50% PEEP of 6. ABG showed a pO2 of 123 pCO2 51 pH of 7.32, and I cut down his FiO2 down to 45%, patient is receiving a unit of packed RBCs for hemoglobin of 6.9 today. Patient had an episode of A-fib RVR at 3 AM in the morning, seen by cardiology, and recommended patient goes on amiodarone. Still requiring norepinephrine at 0.05 mg/kg/min, he is on LR at 100 cc/h propofol at 50 mg/kg/min. Remains empirically on Zosyn for aspiration pneumonia. My plan today is transitioning the patient to Precedex, hopefully discontinue propofol, and at least give the patient a decent weaning trial or at least check weaning parameters before we proceed to weaning trial. Chest x-ray continues to show evidence of pneumonia mostly in the left lung and left lower lobe more specifically. Some pulmonary vascular congestion is noted with interstitial edema, small pleural effusion is also noted/left side. WBC count today is 12 hemoglobin 6.9 basic metabolic profile is normal bicarb is 25, BUN is 25 creatinine is improving down to 1.21 from 1.57 yesterday Patient was evaluated today on 11/15/2023, patient remains in the ICU, he was extubated yesterday, and his extubation was relatively uneventful. However the patient continues to have nasogastric tube in place, his pathology report came back showing non-Hodgkin's lymphoma, patient has gastric outlet obstruction, and the recommendation by GI is to consult surgery for a jejunostomy tube which is appropriate. Patient will be seen today by oncology and [facility] In the meantime patient is comfortable, he is on 5 L nasal cannula he has LR running at 100 cc/h, he is remains on Zosyn for aspiration pneumonia remains on amiodarone which was started by cardiology for atrial fibrillation with RVR, presently in sinus rhythm. Cannot switch him to oral because of the fact that remains n.p.o., patient remains on TPN. WBC count is 10.7 hemoglobin 7.5 electrolytes are normal renal profile is normal, creatinine normalized to 0.96 Patient was evaluated today on 11/16/2023, remains in the ICU, on 5 L nasal cannula remains on amiodarone at 0.5 mg/min remains on LR at 100 cc/h, however his chest x-ray is showing some component of interstitial edema or could be findings related to his recent episode of aspiration/aspiration pneumonia, nonetheless the patient seems to be a bit symptomatic, he has intermittent cough and wheezing, I am recommending Lasix 40 mg IV push, cut down his IV fluid to 50 cc/h, continue Zosyn, patient will be placed on DuoNeb updrafts and on Solu- Medrol. Patient is scheduled to have jejunostomy-tube placement today. WBC count is 13 hemoglobin 7.7 basic metabolic profile is normal and renal profile is normal Patient was evaluated today on 11/17/2023, patient underwent uneventful placement of a jejunostomy tube yesterday, in the ICU on 5 L, patient is relatively stable, not in any distress, patient continues to have nasogastric tube in place although he did have a J-tube placed yesterday. Patient was seen by oncology for his non-Hodgkin's lymphoma involving the gastric outlet. Today's x-ray showed evidence of pneumonia/bilateral interstitial infiltrate/edema patient was given a dose of Lasix, I reminded the patient had an aspiration episode which was significant. And he required intubation mechanical ventilation for a few days.WBC count today is 9.1 hemoglobin 7.9 electrolytes are normal renal profile is normal hence I plan to transfer the patient out of the ICU to a cardiac floor. And hopefully discharge planning in the next 2 days for The patient was seen today November 18, 2023 in follow-up in the intensive care unit. He is currently sitting up in bed. Awake and alert in no acute distress. He is maintaining O2 saturations in the 90s on 5 L/min per nasal cannula. Glucose 177. Remains on DuoNeb inhalations and Solu-Medrol. Antibiotics in the form of Zosyn. He has a J-tube in place. He was initiated on vital AF 1.2 at 10 mL an hour with a goal of 82 mL/h The patient is seen today November 19, 2023 in follow-up in the intensive care unit. He is a regular medical floor overflow patient. He is currently sitting up in a chair. Awake and alert in no acute distress. He is maintaining O2 saturations in the 90s on 5 L/min per nasal cannula. No IV fluids. He denies any worsening shortness of breath, cough or congestion. He is having some issues with diarrhea. He remains on Zosyn. He is receiving vital AF at 55 mL/h with a goal of 82 mL/h. Glucose 161. Solu-Medrol, DuoNeb inhalations. The patient is seen today November 20, 2023 in follow-up on the regular medical floor. He is currently up in a chair at the bedside. Awake and alert in no acute distress. Denies any worsening shortness of breath, cough or congestion. He is maintaining O2 saturation in the 90s on 3 L/min per nasal cannula. He continues on Zosyn. Continues on bronchodilators and steroids. White count 12.3. Hemoglobin 9.0. Platelets 258. Glucose 168. He is not tolerating his tube feeds as he has developed diarrhea. C. difficile screen was negative. Abdominal series revealed cardiomegaly with left basilar acute infiltrate and/or atelectasis. Overall nonspecific bowel gas pattern. A small bowel obstruction needs to be considered. Progress note dated November 21, 2023. The patient is seen in room 517. The patient is currently on 3 L of oxygen. He continues on Zosyn. His biggest complaint has been abdominal discomfort and diarrhea. He did have a CT scan of the abdomen and pelvis. Current laboratory data includes a white count of 14.4, hemoglobin 8.8, hematocrit 28.7, and platelet count 229,000. Sodium 139, potassium 4.1, chlorides 103, CO2 30, BUN 42, creatinine 0.94. Glucose is 158. Calcium is 8.5. Progress note dated November 22, 2023. 73-year-old male seen in room 517. He currently is on 2 L of oxygen. Room air saturation was 89%. Chest CT shows bilateral patchy infiltrates. He continues on Zosyn. He is still not taking anything by mouth. No new laboratory data today other than a glucose of 138. Gram stain was negative. Progress note dated November 23, 2023. 73-year-old male seen in room 517. He is resting comfortably without com plaints. He continues on saline at 10 cc an hour, tube feedings with Pivot at 20 cc an hour, Zosyn, and 2 L by nasal cannula. He has had an uneventful night. Laboratory data today includes a white count 14.5, hemoglobin 9.7, hematocrit 31.4, and a platelet count of 242,000. Sodium 138, potassium 3.7, chlorides 106, CO2 26, BUN 39, creatinine 0.95. Glucose is 181. Calcium is 8.5. Sputum sampling was negative. Progress note dated November 24, 2023. 73-year-old male who is seen in room 517. The patient has been having significant abdominal discomfort, and went for a evaluation, ordered by surgery today, to determine whether or not the feeding tube, was in proper position, and whether or not there is anything acutely going on in the abdomen. He had been having diarrhea. He is on 3 L of oxygen. He has been here for 12 days. This is a patient, that had a prior EGD, aspirated, because of gastric outlet obstruction, and was diagnosis of non-Hodgkin's lymphoma. He is currently on Zosyn, DuoNebs, and Solu-Medrol. He has been NPO. Chest x-ray showed a left lower lobe infiltrate. Abdominal x-ray showed multiple air-fluid levels. CT of the abdomen showed multiple dilated small bowel loops, consistent with obstruction, pneumoperitoneum, ascites, and cholelithiasis. White count was 14.1, hemoglobin 8.9, hematocrit 29.5, and platelet count was 255,000. Glucose was 143. 11/25/2023, the patient is being seen in the intensive care unit. The patient is critically ill, n.p.o., he has an NG tube in place. Following the NG tube insertion, there was a total of 2.0 L of output and the patient's J-tube was also draining approximately 200 cc over the past 8 hours. Continues to have abdominal pain which is rather diffuse and the patient has direct abdominal tenderness. CAT scan of the abdomen was noted and was consistent with small bowel obstruction. The patient has a stomach that was inflated and in the same time there were multiple loops of small bowel distended with fluid. This extended to the pelvis. J-tube with contrast nondilated small bowel loops within the mid abdomen. Additional loops of small bowel were seen that was dilated. There was some contrast in the right lower quadrant and contrast was also in the cecum. No transition point was identified. The dilated loops of the bowel appeared to be in the proximal jejunum and distal to the duodenum. General surgery is on the case the patient will be taken to the operating room for another exploratory laparotomy. Noted the CAT scan of the abdomen also showed pneumoperitoneum and small amount of ascites and cholelithiasis. Hemodynamically, the patient is currently on normal saline at rate of 75 cc an hour. He is hypotensive and is going to be started on pressors. He is on 4 L of oxygen by nasal cannula. He also has sustained acute kidney injury. Blood work from today shows a rise in the creatinine which is currently up to 2.5 with a BUN of 57. Serum bicarb is at 14 with an anion gap of 11. The patient WBC count is at 8.2 with a hemoglobin of 12.3 and a platelet count of 188. Chest x- ray from this morning is showing a right-sided port and a stable left lung airspace disease and an NG tube being in place. The patient remains on IV Zosyn. The patient is receiving Dilaudid for pain control. The patient remains on IV Solu-Medrol 60 mg every 6 hours. It was noted that the patient's surgical wound over the port has dehisced and there is some serous drainage and erythema at the incision site. Awake and alert and communicating. Family at the bedside. No apparent signs of respiratory distress at this point. 11/26/2023, the patient is being seen in follow-up. Events from yesterday was noted and the patient was taken to the operating room for exploratory laparotomy. The patient was found to have large amount of free fluid noted in the abdomen and there was significant contamination. There was perforation of the small bowel with the balloon of the previously inserted jejunostomy tube penetrating through the perforation. As such, the tube was removed, abdominal washout was done. Small bowel resection was done and the patient had a nodular jejunostomy tube inserted. Postop, the patient was extubated he was unable to tolerate extubation and the patient was kept intubated on mechanical ventilator and he was brought back to the intensive care unit. He is currently postop day #1 following his small bowel resection. Abdominal surgical wound site is dry c lean and intact. This morning, the patient remains sedated on propofol which is currently running at 35 mcg/kg/min. He is on assist-control mode of mechanical ventilation at rate of 28, tidal volume of 550, FiO2 of 60% with a PEEP of 5. Blood gas from today shows a pH of 7.35 with a pCO2 44 and pO2 of 88. Chest x- ray shows adequate positioning of the orotracheal tube. The patient has a Mediport on the right and a subclavian triple-lumen catheter on the left and the patient has persistent bilateral pleural effusion and infiltrates in lung base bilaterally. Hemodynamically, the patient remains in shock. He has been on high-dose norepinephrine which is currently running at 0.28 mcg/kg/min and the patient is also on vasopressin at 0.03 units an hour. He is IV fluids are in the form of bicarb infusion running at rate of 150 cc an hour. He is in sinus tachycardia. NG tube output has been 250 cc over the past 8 hours and the output from the J-tube is minimal at this point in time. Urine output is quite diminished as the patient has also sustained acute kidney injury. Overall fluid balance is +4.9 L over the past 24 hours. The patient's white cell count of 5.7 with a hemoglobin 9.9 and platelet count of 172. BUN is 72 with a creatinine of 2.8 and sodium levels at 143. The calcium level is at 6.5. LFTs are normal. Triglyceride level is at 315. On 11/27/2023, the patient remains critically ill. Remains intubated and on mechanical ventilator, still awaiting shock which is essentially septic shock. Remains on propofol which is running at 50 mcg/kg/min. Remains on the mechanical ventilator, assist-control mode with rate of 28, tidal volume of 550 with an FiO2 of 60% with a PEEP of 5. Blood gas shows a pH of 7.29 with a pCO2 of 47 and pO2 of 78. The patient had a follow-up chest x-ray that showed lower lobe consolidation slightly worse on the right and the orotracheal tube is in a good location. Urine output is diminished in the order of 5 to 10 cc an hour and the patient is also developing progressive worsening renal function. Remains on normal citrate of 150 cc an hour and the patient was started on TPN which is running at 30 cc an hour. He has a triple-lumen catheter in his left subclavian. Overall fluid balance over the past 24 hours is +3.9 L. Output from the NG tube and the J-tube is minimal. Hemodynamically, he is hypotensive and norepinephrine running at 0.45 mcg/kg/min. Vasopressin is a physiologic dose. He received amiodarone and he remains on maintenance amiodarone of 0.5 mg/min and the patient continues to be in atrial fibrillation and is having episodes of tachycardia. The white cell count is at 13, hemoglobin 9.4 platelet count is pending. The patient's BUN is 83 with a creatinine of 3.7. Sodium is at 140 with a potassium level of 5.5 dropped down to 4.4 as the sample was hemolyzed. LFTs are normal. Abdominal wound is dry clean and intact. RAYA drainage is essentially serous at this point in time. 11/28/2023, the patient is being seen for a follow-up. The patient remains intubated on mechanical ventilator. This morning, the patient tolerated propofol drip running at 50 mcg/kg/min. The patient is on mechanical ventilator assist-control mode with rate of 28, tidal volume of 550, FiO2 55% with a PEEP of 5. Chest x-ray shows stable findings with lower lobe consolidations bilaterally. Blood gas shows a pH of 7.32 with a pCO2 38 and pO2 90. Neuropathy has improved and the patient is producing approximately 30 cc an hour and the overall input output balance is +3.3 L over the past 24 hours. The patient is still on pressors although his pressor requirements have improved since yesterday. He is on norepinephrine which is running at 0.05 mcg/kg/min and vasopressin physiologic dose. Also, the patient on amiodarone drip regarding his chronic ongoing atrial fibrillation. Amiodarone drip is running at 0.5 mg/min. Nevertheless, the rate is under much better control. Noted the patient was given a dose of digoxin 0.5 mg IV yesterday which helped with rate control. Remains on normal citrate of 150 cc an hour. Remains on TPN at 40 cc an hour. Output from the J-tube is fecal. Output from the NG tube is more gastric. Surgical wound site is dry clean and intact. Sputum Gram stain and culture showing Pseudomonas and Citrobacter. Note that the Citrobacter was intermediate resistance to Zosyn. This will be discussed further with infectious disease. Blood cultures are still pending for now. They have negative based on the most recent check. Blood work from today shows WBC count 11.2, hemoglobin 7.9 and platelet count of 46. Sodium is at 140, potassium is at 4.3, chloride is 114 with a bicarb of 18. He has 93 and the creatinine is 4.8. Serum random vancomycin level is at 25.7. On 11/29/2023, the patient is being seen for a follow-up. Remains intubated on the mechanical ventilator. The patient sedated on propofol which is running at 35 mcg/kg/min. Synchronous with mechanical ventilator. On today's evaluation, he is on assist-control mode with rate of 28, tidal volume of 550, FiO2 55% with a PEEP of 5. Chest x-ray shows lower lobe consolidation bilaterally worse on th e right and the orotracheal tube is in good location. The blood gas showed a pH of 7.34 with a pCO2 of 35 and a pO2 of 84. No significant orotracheal secretions. Hemodynamically improved compared to yesterday. In fact, the patient is on minimal norepinephrine that was discontinued earlier this morning. The patient has converted to normal sinus rhythm. Remains on amiodarone at 0.5 mg/min. Overall fluid balance over the past 24 hours is 2.4 L positive. Urine output has been adequate and the patient is currently on IV Lasix. Nevertheless, the patient has developed progressive worsening renal function. Creatinine is up to 5.3 on today's evaluation with a potassium level of 4.4. Serum bicarb is at 18 with an anion gap of 9. WBC count is at 8.1 with a hemoglobin of 7 and a platelet count of 32 which has dropped compared to earlier evaluation. The rest of the coagulation profile was normal from 11/28/2023. Fibrinogen level is slightly elevated. Sputum samples have shown a combination of Citrobacter and Pseudomonas aeruginosa. Based on cultures and sensitivities, the patient will be taken off his IV Zosyn and he will be switched to IV meropenem. Output from the J-tube is fecal. Output from the NG tube is gastric and surgical wound site is dry clean and intact. He is afebrile for now. Hemodynamically, the patient is doing better. He remains on TPN for nutritional support. IV fluids are also running at a rate of 75 cc an hour. Remains on vancomycin. 11/30/2023, the patient is being seen for a follow-up. The patient remains on propofol at 50 mcg/kg/min. Ventilator settings are essentially unchanged. The patient remains on assist-control mode with rate of 18, tidal volume of 400, FiO2 50% with a PEEP of 5. The blood gas showed a pH of 7.37 with a pCO2 of 43 and pO2 of 127. Chest x-ray shows no significant interval change. Patient remains on normal saline at rate of 75 cc an hour and TPN at rate of 35 cc an hour. Fluid balance is positive. Hemodialysis was performed yesterday and the second session of hemodialysis to be done today. The patient's urine output is in the order of 20 to 30 cc an hour. The patient has an NG output of 350 cc for yesterday and the drainage from the J-tube is in the order of 400 cc over the past 24 hours. The blood work shows a WBC count of 10.8, hemoglobin 8.1 and platelet count of 41. Platelet counts are essentially stable and slightly improved compared to yesterday. The sodium level is at 133, potassium is at 4.3, BUN is 93 with a creatinine of 3.6. LFTs are within normal limits. Albumin is down to 2.1. The patient is currently on no pressors. Norepinephrine and vasopressin are both discontinued and the patient remains in normal sinus rhythm. No other significant events overnight. Family has been updated on his condition. Antibiotic coverage is currently with IV meropenem. Vancomycin and Zosyn have been both discontinued. On 12/01/2023, the patient remains sedated on propofol which is running at 25 mcg/kg/min., Comfortable and synchronous mechanical ventilator. The patient remains on assist-control mode rate of 28, tidal volume of 550, FiO2 40% and PEEP of 5. Blood gas shows a pH of 7.49 with a pCO2 of 34 and pO2 of 121. Patient underwent hemodialysis yesterday. No plans for hemodialysis today the patient is producing urine output. Remains on TPN for nutrition support rate of 75 cc an hour. IV fluids are currently at KVO. The chest x-ray from today shows bilateral lower lobe consolidation worse on the right. No significant change in the volume status. The patient continues to have third spacing and edema in all 4 extremities. Nevertheless, urine output is adequate at this point in time and the patient remains on Lasix 80 mg IV every 12 hours. Remains NPO. NG tube and J-tube are both drainage. Output is noted. Remains on IV meropenem. Afebrile. Currently on no pressors. Blood work shows a WBC count of 11.4, hemoglobin of 8.1 and platelet count of 46. Sodium is at 131, potassium level is at 3.7, chloride 101 and bicarb is at 24. BUN is 84 with a creatinine of 3.6. Glucose of 228. LFTs are within normal limits. Patient was reevaluated today on 12/02/23, patient remains in the ICU, patient is familiar to my service, I saw this patient 3 weeks ago. Since then he had a very complicated hospital course, related to his jejunostomy tube dislodging and leaking and picture of abdominal sepsis and worsening pneumonia/ARDS. Patient had to be placed back on mechanical ventilation, and he is now intubated and mechanically ventilated. He is on assist-control rate of 20 tidal volume 550 FiO2 40% PEEP of 5 ABG showed a pO2 of 111 pCO2 38 pH of 7.43 and I cut down his FiO2 to 35% and increase his flow rate from 60-70. Patient remains on TPN at 75 cc/h he is on propofol at 25 mcg/kg/min patient is on Cleviprex which I added today for elevated blood pressure. Receiving Lasix 80 mg every 12 hours is also on Merrem as per infectious disease. Patient is on hemodialysis and being followed by nephrology. Patient required multiple abdominal surgeries since his initial admission. Chest x-ray continues to show worsening pneumonia involving both lungs, right more so than left, I suspect there may be a component of ARDS. His initial presentation was the presentation of aspiration pneumonia to begin with and that was 3 weeks agoWBC count is 10.3 hemoglobin 8.6 sodium 131 potassium 4 chloride 100 bicarb 23 BUN is 111 creatinine 4.02 blood sugar is 248. Albumin is 1.9 Patient was evaluated today on , patient remains in the ICU, intubated and mechanically ventilated. Patient is on assist-control rate of 20 tidal volume 550 FiO2 35% and PEEP of 5 ABG showed a pO2 of 99 pCO2 39 pH of 7.44 patient is undergoing hemodialysis today, and the plan is to remove 2 L. He is remains on propofol at 35 mcg/kg/min, remains on TPN at 75 cc/h. Remains on Merrem. Patient is not requiring any pressors today. Yesterday patient did not tolerate to be off sedation long enough, and today we tried the same sedation interruption, and the patient did not do well post interruption of sedation, became extremely agitated restless, tachycardic, and could not fully assess mental status off sedation. Hence the patient was placed back on AC mode of mechanical ventilation, and the plan is to continue the same supportive care measures. Family updated on his condition and most likely the patient will end up requiring tracheostomy in the next few days.WBC count is 8.5 hemoglobin 8.2 basic metabolic profile is relatively unremarkable BUN is 89 creatinine 3.45 chest x-ray today showed stable chest, suspect some right-sided pleural effusion which would likely improve with hemodialysis/ultrafiltration. X-ray of abdomen showed nonspecific nonobstructive bowel gas pattern Patient was seen today on 12/04/2023, remains in the ICU, intubated mechanically ventilated, on assist-control rate of 20 tidal volume 550 FiO2 35% PEEP of 5 ABG showed a pO2 of 112 pCO2 38 pH of 7.45, hence no changes were made in ventilator settings. Patient is on propofol at 35 mcg/kg/min he is also on IV fluid at KVO TPN at 75 cc/h. Remains on hemodialysis remains on Lasix 80 mg IV push twice daily, remains on Merrem. This x-ray continues to show the same findi ngs/airspace disease in both lungs, not much of a change in the last 2 days, however his oxygenation seems to be improved. WBC count is 7.1 hemoglobin 7.7. Electrolytes are normal, BUN is elevated 77 creatinine 3.32, patient is on hemodialysis. His condition was discussed today with the at bedside, and I do not believe the patient is ready to be weaned or extubated, however he seems to get extremely agitated when he goes off propofol, today I plan to transition propofol to Precedex, give him a trial on Precedex and determine whether the patient becomes more appropriate and at least ready for any weaning trials. Clinically I doubt if this will happen but we will go ahead and try Patient was evaluated today on 12/05/2023, remains in the ICU, intubated mechanically ventilated, not much of a change noted in the last 24 hours. Remains on assist-control of 20 tidal volume 550 FiO2 35% PEEP of 5 ABG showed a pO2 of 90 pCO2 37 pH of 7.48 hence chose not to change any of his ventilator settings. Yesterday the patient failed again trial of weaning, and he was never anywhere near ready to be weaned in spite of placing him on Precedex and off propofol, at 1 point the patient became extremely agitated restless and he was biting on the endotracheal tube could not fully awake the patient and determine improvement in his mental status. Hence patient was placed back on propofol yesterday and he remains on propofol today. He is on propofol at 25 mcg/kg/min he is on TPN at 75 cc/h surgery is considering starting his J-tube feedings today. Remains on hemodialysis remains on Merrem remains on Lasix 80 mg IV push twice daily overall not much of a change his chest x-ray is basically about the same showing bibasilar airspace disease. Today I had a discussion with the regarding the option of tracheostomy extremely reluctant to have it done yet. Said that the patient had multiple complications with previous surgeries and she is afraid that he is going to have another complication with the surgeryWBC count is 10.2 hemoglobin is 8, basic metabolic profile is normal sodium 130 BUN 70 creatinine 2.89 Patient was seen today on 12/06/23, remains in the ICU, intubated mechanically ventilated, his ventilator settings are assist-control rate 20 tidal volume 550 FiO2 35% and PEEP of 5 ABG showed a pO2 of 103 pCO2 36 pH of 7.47 patient opens eyes but does not follow any other instructions. He is now off propofol for the last 24 hours, he is maintained on Precedex at 0.4, TPN at 75 cc/h vital AF at 5 mL/h. Patient remains on Merrem, patient did not receive dialysis today because issues related to occluded dialysis catheter. Nonetheless the patient is making urine, and continues to improve with diuretics. Chest x-ray continues to show bibasilar airspace disease, not much of a change director the last 1 week.WBC count today is 11.8 hemoglobin is 7.9.Basic metabolic profile is normal BUN is 92 creatinine 3.74. Blood sugar is 226. Family is at bedside, considering his overall mental status at this point, not quite ready to start checking weaning parameters, and is not ready for weaning. Nonetheless I plan to keep him on Precedex, and hopefully avoid narcotics and other sedatives. His mentation starts clearing a bit more, then will start trials of weaning parameters and/or weaning trials Patient was seen today on 12/07/2023, remains in the ICU, intubated and mechanically ventilated, on assist-control rate of 20 tidal volume 550 FiO2 35% PEEP of 5 ABG showed a pO2 of 83 pCO2 33 pH of 7.50 hence the tidal volume was cut down to 500. Patient remains off propofol remains off narcotics is only on Precedex for sedation at 0.6 mg/kg/h. He is on norepinephrine at 0.02 TPN at 75 cc/h IV fluid at KVO vital AF at 10 mL/h is also on Merrem. Neurologically I am concerned about this patient neurological status, does not seem to be waking up much, he opens his eyes but does not follow any instructions and spite of sedation hold for quite some time. Hence I am recommending a CT of the brain and multiple recommending a neurological consultation on this patient. WBC count is 18 7 hemoglobin is 8.4, basic metabolic profile is normal BUN is 75 creatinine 2.95, patient is back on dialysis, he had a new hemodialysis catheter placed yesterday by vascular surgery, and he will be restarted back on hemodialysis. CT of the brain done shortly after evaluating the patient showed no acute intracranial process chest x-ray basically about the same, continues to show small left and moderate right basilar infiltrate. Has not changed much over the last 1 week, patient remains on antibiotics. Patient was seen today on 12/08/2023, remains in the ICU, intubated and mechanically ventilated, remains on assist-control rate of 20 tidal volume 500 FiO2 35% PEEP of 5 ABG showed a pO2 of 88 pCO2 37 pH of 7.47 hence no changes were made in ventilator settings. Chest x-ray is showing slight increase in his right-sided pleural effusion, however his oxygenation seems to be about the same, and the patient is responding to Lasix given at 80 mg IV push every 12 hours, he is also doing well with hemodialysis he had 2 L removed yesterday and 2 L the day before. Hence will not recommend thoracentesis at this point. But the pleural effusion will need to be closely monitored. Patient remains off propofol he is on Precedex at 0.6 mcg/kg/h. For the last 2 days, and his mentation is not much different from baseline. Continues to open his eyes and does not follow any other instructions has the patient is clearly not ready for weaning trials or extubation. Brought up the issue of tracheostomy again with the , she is still reluctant to proceed with tracheostomy on him at this point. Patient remains on Merrem, remains on TPN but his enteral feeding will be advanced today to full goal, and if that happens then we will can discontinue TPN. Patient is receiving vital AF 1.2@10 mL/h at this point.WBC count is 19.3 hemoglobin 7.6. Basic metabolic profile is normal BUN is 72 creatinine 2.99 blood sugar ranging between 250 up to 334. 12/09/23 - patient seen at bedside today, remaining in the ICU, intubated and mechanically ventilated, remaining on assist-control rate of 20, tidal volume 500, FiO2 30%, PEEP of 5 and oxygen saturation of 100%. Patient is on day 27 of his hospital stay (admitted 11/11), day 15 of this current ICU stay (readmit to the ICU 11/24) and day 15 of this current period of time on the ventilator (placed 11/24). ABG showed pO2 100, pCO2 36, pH 7.47. Chest x-ray was deemed to be stable, however possibly with slight improvement noted on the left with a right-sided pleural effusion remains evident however the patient's oxygenation remains to be about the same. Continue to receive 80 mg IV Lasix every 12 hours and is receiving daily hemodialysis, in which he has been having 2 L removed the past couple of days, hemodialysis yet to occur today. His creatinine is 3.57 (compared to 2.99 yesterday) and BUN 98 (compared to 72 yesterday). Due to this response to diuresis and hemodialysis, no thoracentesis recommended at this point however pleural effusion will need to continue to be monitored. Patient shon off propofol, he is on Precedex at 0.4 mcg/kg/h. Due to his mentation remaining near baseline, neurology had been consulted who ordered an EEG which showed diffuse background slowing of his severe degree which is suggestive for generalized cerebral dysfunction and can be seen with toxic metabolic encephalopathy, as well as the presence of sporadic intermittent, some higher amplitude, sharply contoured waves of generalized distribution. Because of this per neurology's recommendation, patient started on Keppra 500 mg twice daily. The patient does seem to be having some improved mentation, with opening his eyes and responding to commands some of this morning. Spontaneous breathing trial to be attempted today, to see if the patient will be able to come off of mechanical ventilation. If that is unable to occur, discussed with the patient as well as his and one of his daughters that a tracheostomy would be the most appropriate next course of action due to the potential dangers of sustained endotracheal intubation for prolonged period of time. The , while reluctant, seem to acknowledge that this is the appropriate course of action. He remains receiving meropenem 1 g nightly. He remains on TPN 75 mL/h, which she has been on since 11/21 (18), but his enteral feeding has been vital 1.2 AF at 10 mL/h with a goal rate of 80 mL/h. Patient drained 60 mg of serosanguineous fluid from his RAYA. His WBCs increased to 21.5 (compared to 19.3 yesterday), hemoglobin dropped to 7.2 (compared to 7.6 yesterday), hematocrit dropped to 22.0 (compared to 22.9 yesterday) and patient procalcitonin remains elevated at 3.07. 12/10/23 - Patient seen at bedside today, remaining in the ICU, intubated and mechanically ventilated, remaining on assist-control rate of 20, tidal volume 500, FiO2 30%, PEEP of 5 and oxygen saturation of 100%. Patient is on day 28 of his hospital stay (admitted 11/11), day 16 of this current ICU stay (readmit to the ICU 11/24) and day 16 of this current period of time on the ventilator (placed 11/24). ABG showed pO2 93, pCO2 37, pH 7.47, showing evidence of a mild metabolic alkalosis. Chest x-ray today showed stable disease compared to yesterday. He received levo overnight due to atypical blood pressure, patient's TPN was up to 120 due to the change in formula. Patient is scheduled to undergo tracheotomy today (12/09) at 16:30. Per the nurse and the overnight staff patient continues to open his eyes and shows some responsiveness to commands. Per nephrology's recommendation dialysis to be held today due to the patient going for the tracheotomy later, as well as the dip in blood pressure seen after yesterday's dialysis session which required Levophed. Patient's Hgb this morning 6.6, will be given 1 unit today, which will be the second unit he has received during his hospital course. Patient's airway resistance noted to be 3.3 cm/L/s, static lung compliance shown to be 45 mL/cm H2O and dynamic compliance 33 mL/cm H2O. 12/11/23 - Patient seen at the bedside, remaining in the ICU, with a tracheotomy tube and mechanically ventilated while receiving dialysis. Patient remains on assist-control rate of 20, FiO2 30%, PEEP of 5 and has an oxygen saturation of 97%. Patient is on day 29 of the hospital stay (admitted 11/11), day 17 of his current ICU stay (readmitted to the ICU 11/24) and day 17 of his current period of time on the ventilator (placed 11/24). ABG today showed pO2 115, pCO2 38, pH 7.44 continuing to show evidence of a mild metabolic alkalosis. Chest x-ray today showed stable disease. Patient had tracheotomy placed yesterday afternoon (12/09) without any complications. Patient has had 3 consecutive days of attempting spontaneous breathing trials in an effort to wean the patient off the ventilator, all of which failed to this point. Beginning today the patient's antibiotics (meropenem) will be discontinued and we will begin weaning his propofol down from 25 mcg/kg/min. As the patient is weaned off of the propofol, 0.5 Dilaudid and 1 mg IV Ativan to be used every 6 hours as needed. Patient is continuing to receive normal saline 20 cc/h, and has a total of 200 mL of serosanguineous fluid from his RAYA drain. TPN to continue at a rate of 120 mL/h additionally tube feeds, which had been held due to the patient receiving s traight catheter yesterday, will be restarted today with an ultimate goal being to receive enteral nutrition at a rate of 80 mL/h. TPN to continue until able to increase the enteral nutrition to at least 50 mL/h, as per the dietitian's recommendation. Will be exploring the possibility of the patient being moved to select specialty. 12/12/23 - Patient seen at the bedside this morning, in ICU room 253, while receiving and EEG, no significant events overnight. Patient remains with tracheotomy and is mechanically ventilated on assist control with a rate of 20, tidal volume 500, FiO2 30%, PEEP of 5 with an oxygen saturation of 98%. Patient is on day 30 of the hospital stay (admitted 11/11), day 18 of his current ICU stay (readmitted to the ICU 11/24) and day 18 of his current period of time with mechanical ventilation (placed in 11/24). ABG today showed pO2 92, pCO2 36, pH is 7.49 continue to show signs of a combined respiratory and metabolic alkalosis. WBC 17.9, Hgb 7.4, Hct 22.6, PLT 151; sodium 133, potassium 4.0, HCO3 27, BUN 88, creatinine 2.96. Chest x-ray done today continuing to show patchy infiltrate throughout the right lung with layering effusion. Patient is continuing to receive normal saline 20 cc/h, continues to receive Dilaudid 0.5 mg IV push every 6 hours as needed, as well as Ativan 1 mg IV every 6 hours as needed. Patient is no longer maintained on propofol. TPN continues at a rate of 120 mm/h and EN vital AF at 30 mL/h with a goal of 40 mL/h. Once goal is reached, TPN can be discontinued and patient will be switched over to Nepro 50 mL/h. Following the patient having 3 consecutive days of attending spontaneous breathing trials and effort to wean, we will begin trying the patient with CPAP and pressure support in effort to wean, today's trial the patient will be placed on PS 5 and PEEP of 5 for 25-45 minutes, or as he is able to tolerate it. Disc ussed with the patient's the importance of continuing to wean the patient's with trials, in an effort to build up some of the strength in his lungs to better be able to tolerate breathing on his own. Will continue to evaluate for possible placement in a long-term acute care facility. 12/13/23 - Patient seen at the bedside this morning, in ICU room 253, with no significant events overnight noted. Patient remains with tracheotomy and is mechanically ventilated on assist control with a rate of 20, tidal volume 500, FiO2 30%, PEEP of 5 with an oxygen saturation of 98%. Patient is on day 30 one of the hospital stay (admitted to 11/11), day 19 of his current ICU stay (readmitted to the ICU 11/24) and day 19 of his current period of time with mechanical ventilation (placed 11/24). ABG today showed pO2 87, pCO2 36, pH 7.48 continue to show signs of a combined respiratory metabolic alkalosis. WBC 17.3, Hgb 8.0, Hct 25.3, PLT 191; sodium 136, potassium 4.1, BUN 116, creatinine 3.17. This x-ray done today continues to show stable disease. Patient had an EEG completed yesterday (12/11) which showed an abnormal EEG, study being limited because of diffuse myogenic artifact. Background slowing suggestive of severe encephalopathy. Otherwise no appreciable epileptiform discharges, focal slowing, or seizure noted during the exam. Patient continues to receive Dilaudid 0.5 mg IV push every 6 hours as needed, as well as Ativan 1 mg IV every 6 hours as needed. Patient's TPN has been stopped, he is not receiving Nepro at 50 mL/h, which is goal. Patient Solu-Medrol has been discontinued, patient now receiving 30 mg prednisone daily. Patient's trial yesterday with CPAP and pressure support with the patient was sent PS of 5 and PEEP of 5, patient tolerated 40 minutes well it was noted that his respiratory rate increased and his minute ventilation also increased during this time. Will continue with another weaning effort today and continue to reassess how the patient tolerates. He will be receiving hemodialysis today, with the plan to hold over the weekend and then reassess Saturday per nephrology. Additionally IV Lasix has been discontinued on this patient, nephrology did state that he may need to resume receiving the Lasix if the urine output tapers. Progress note dated December 14, 2023. The patient is seen today in room 253. The patient remains on the mechanical v entilator. His settings include volume assist-control, rate 20, tidal volume 500, FiO2 30%, PEEP of 5. Blood gases show pO2 of 76, pCO2 of 36, pH of 7.47. The patient is getting saline at 10 cc an hour, and Nepro at 50 cc an hour which is goal. The patient will go back on pressor support of 5 and CPAP of 5 today. Yesterday, he spent 2-1/2 hours on pressure support. The patient did have a tem perature last night. He discussed some purulent drainage at the wound site. I have asked surgeon to come back and see the patient. In addition, the nurse will get blood, urine, sputum, and wound cultures going. He is not on any antibiotics. We will check a procalcitonin level. White count of 16.7, hemoglobin 8.1, hematocrit 24.5, platelet count is normal. Sodium 135, potassium 3.9, chlorides 103, CO2 24, BUN 106, creatinine 3.04. Calcium is 7.1. Magnesium is 2.0. Urine is yellow, with 1+ protein, 6 WBCs, and rare bacteria. Chest x-ray shows a stable chest x-ray, which is largely unchanged. Progress note dated December 15, 2023. 73-year-old male seen again in room 253. The patient remains on mechanical ventilator. Blood gases show pO2 of 78, pCO2 of 36, pH of 7.47. The patient is getting saline at KVO, and Nepro at 50 cc an hour which is goal. The patient did a spontaneous breathing trial yesterday, and went about 6 hours on PSV 5, CPAP of 5. The patient's procalcitonin level was elevated at 1.92. We added back Zosyn. Yesterday we did sputum, blood, urine, and wound cultures. The patient will have another spontaneous breathing trial today. Current labs include a white count 16.3, hemoglobin 7.5, hematocrit 22.6, and a normal platelet count. Sodium 138, potassium 3.5, chlorides 105, CO2 24, BUN 125, and creatinine 3.22. Glucose is 220. Calcium is 6.9. Chest x-ray shows a right- sided pleural effusion, and some similar changes, to the previous x-ray. This is a 73-year-old white male with history of chronic abdominal pain for the last 8 months has been treated with Protonix 40 mg daily for the last 3 months with no improvement. Patient had a 22 pound weight loss in the last [address] of the abdomen and pelvis 3 weeks ago showed thickening of the antral wall with pathological adenopathy posterior to the stomach suspicious of neoplasm. Today the patient underwent elective upper endoscopy to evaluate further, patient received IV sedation by anesthesia endoscope was inserted into the mouth, esophagus was intubated without any difficulty there was evidence of large amount of liquid and solid food noted in the stomach suggestive of gastric out let obstruction. Scope could not be advanced through the pylorus, however in the prepyloric area there was a large superficial ulceration identified with multiple biopsies were done from this area. The body cardia and fundus could not adequately visualize because of large amount of retained food in the stomach. Scope was withdrawn back to the stomach and upon careful examination the mucosa of the antrum body and cardia as well as the fundus appeared normal. Procedure was being performed and biopsies were done patient threw up and subsequently became hypoxic there was clearly evidence of witnessed aspiration anesthesia intubated the patient, procedure was terminated, and the patient was transferred to the ICU, this consult was initiated. Patient is now on assist- control rate of 20 tidal volume 500 FiO2 70% PEEP of 10 ABG is pending, earlier ABG showed profound hypoxia patient is on propofol at 50 mcg/kg/min, next ABG is pending. Chest x-ray showed chronic changes without evidence of acute pulmonary disease. 12/20/2023, the patient is being seen for a follow-up. More alert and awake compared to yesterday. He is able to move his fingers and toes on today's evaluation. Following commands. Nevertheless, his J tube has been clogged and was unable to utilize the tube that has been some leaks around the tube. No abdominal distention. No nausea or emesis. Hemodynamically stable. Will undergo hemodialysis today. He remains on pressure control mode of mechanical ventilation at rate of 16, pressure of 10, +5 PEEP with an FiO2 of 30%. Chest x-ray from today is essentially unchanged with a stable cavity in his right upper lobe. White cell count of 15.7, hemoglobin 7.2, platelet count is 203, blood gas showed a pH of 7.49 with a pCO2 of 33 and pO2 of 73. BUN is 88 with a creatinine 1.89 and sodium is at 141 with a potassium level of 4.1. He is producing adequate amount of urine output. Fluid balance has been -900 cc over the past 24 hours. Normotensive. Remains on a combination of Zosyn and daptomycin. Remains on Levemir insulin 24 units daily. This is currently on hold as the patient has not been able to obtain enteral feeding. Wound VAC still in place. 12/21/2023, the patient remains on the mechanical ventilator. Overnight, the patient experienced discomfort in his abdomen and he was restless. Based on that, the patient was placed on a higher dose of Precedex which is currently running at 0.6 mcg/kg/h. The patient was also asynchronous with the mechanical ventilator and based on that, the patient was switched to an AC mode and currently is at a rate of 16, tidal volume of 400, FiO2 of 30% with a PEEP of 5. The patient is adequately sedated for now. Chest x-ray remains unchanged. Tracheostomy tube in place and the patient is having increased amount of respiratory secretions. J tube needs to be replaced today and this will be done by his general surgery as the tube remains clogged. Urine output is low order of 30 cc an hour. Afebrile. Remains on Zosyn and daptomycin. White cell count is 16.9, hemoglobin 7.4 and a platelet count of 280. Blood gas from today showed a pH of 7.46 with a pCO2 of 36 and pO2 of 82. Sodium levels of 144, BUN is 19 with a creatinine of 2.2 and a serum bicarb is at 23. The abdominal wound remains unchanged. RAYA drain is serosanguineous. 12/22/2023, patient remains on Precedex at 0.4 mcg/kg/min. Arousable. Communicates. Profoundly weak. Remains on the mechanical ventilator with a rig ht lung abscess. SIMV mode mode rate of 16, tidal volume of 400, FiO2 30% with a PEEP of 5, with a pressure support of 8. Blood gas showed a pH of 7.46 with a pCO2 of 32 and a pO2 of 83. Chest x-ray remains unchanged with a right upper lobe cavitating lesion/opacity and a suspected lung abscess. This is rated Pseudomonas and the patient remains on IV Zosyn. He remains on daptomycin. Urine output is in order of 50 cc an hour.. The J-tube was unplugged yesterday. Nevertheless, the tube itself is malfunctioning and there is drainage around the tube requiring dressing changes the dressings being soakedConstantly. The patient's white cell count is 12.3 with a hemoglobin 7.7. Sodium is at 149, BUN 91 with a creatinine of 2.3. Bicarb is at 20. Undergoing hemodialysis periodically. Last hemodialysis was on 12/21/2023. Currently NPO. Abdominal wound is clean and the patient has a wound VAC in place. RAYA drain output is serosanguineous. Patient was seen today on 12/23/2023, remains in the ICU, intubated and mechanically ventilated. Patient is on IMV with pressure support/IMV 16, pressure support of 8, tidal volume 400, PEEP of 5. Patient seems to be doing well with that kind of mode of mechanical ventilation, ABG showed a pO2 of 76 pCO2 28 pH of 7.50. I changed his rate from 16-8 kept him otherwise on the same ventilator settings. Plan to gradually go down on the IMV rate until we can get him on pressure support of 8 and CPAP. Patient is requiring Precedex at 0.4 m cg/kg/h, he is on D5W at 50 cc/h. Remains on antibiotics in the form of daptomycin and Zosyn, chest x-ray continues to show bilateral airspace disease and right upper lobe lung abscess. Continues to have a bit of a leak from his J-tube being addressed by surgery has a wound VAC, and he had a RAYA drain. Mentation arce the patient is a bit more appropriate, opens his eyes, follows very simple instructions, seems to comprehend. Patient has a left brachial PICC line, he also has a left groin hemodialysis catheter. WBC count is 10.1 hemoglobin is 7 sodium is 149 potassium 4 chloride is 121 BUN is 86 creatinine 2.31. Blood sugar is 173. Remains on enteral feeding via J-tube, a bit of a leak is noted, and surgery is to address this. Sputum cultures have grown Klebsiella and Pseudomonas and remains on proper antibiotics Patient was seen and examined today on 12/24/2023, patient remains in the ICU, and mechanically ventilated. On IMV mode of 8 pressure support of 8 tidal volume 400 FiO2 30% and PEEP of 5 ABG showed a pO2 of 81 pCO2 32 pH of 7.45. Patient remains on daptomycin and Zosyn, remains on Precedex at 0.4 mcg/kg/h intermittently receiving Dilaudid for pain. Feeding arce is presently on hold, patient had a leak around the jejunostomy tube, surgery is recommending a trick le feed or TPN if could not use the J-tube. Patient is arousable follows simple instructions, and today I had a chance to get rid of the IMV mode, and I am recommending a pressure support of 8 and CPAP. For the last few hours the patient has been tolerating this mode of mechanical ventilation, however he is not quite ready to go to pending sale to [facility] at this point. Chest x-ray continues to show significant opacity in the right upper lobe and airspace disease in the right lower lobe. Previously patient had a CT of the chest showing right upper lobe abscess. Again he remains on Zosyn and daptomycin.Labs today showed WBC count of 10.6 hemoglobin 7.8 sodium is 147, patient is now on D5W at 100 cc an hour his bicarb is 19 BUN 74 creatinine 2.08, gradually improving, his last hemodialysis was on the , nephrology is considering removing his dialysis catheter in the left groin and I believe that is appropriate patient was seen and examined today on 12/25/2023, remains in the ICU, intubated and mechanically ventilated. Patient had to be placed back on assist-control mode of mechanical ventilation yesterday, mostly because he developed significant agitation and restlessness, and ongoing persistent cough with some air leak from the cough of that tracheostomy. Patient had to be sedated and he was placed on propofol and he remains on propofol at 50 mcg/kg/min. Maximal dose of Precedex yesterday could not calm him down, hence we had to transition him from pressure support/CPAP mode of mechanical ventilation to assist-control mode of mechanical ventilation and fully sedated him with propofol replacing Precedex. Today the patient is sedated, he is on assist-control rate of 16 ti sierra volume 400 FiO2 30% PEEP of 5 ABG showed a pO2 of 98 pCO2 30 pH of 7.45 chest x-ray is basically the same showing significant airspace disease in the right upper lobe and right lower lobe. Remains on daptomycin and Zosyn. His IV fluid was transitioned to D5 4 5 from D5W sodium today is 141. His urine output is about 40 to 50 cc/h, renal profile is improving with steady trending of creatinine down. Patient continues to have leakage around the jejunostomy tube. Patient is being followed by surgery no specific recommendation made except to continue the same and except the leak as it isLabs today showed WBC count of 11.5 hemoglobin 8.2 basic metabolic profile is normal BUN is 60 creatinine down to 1.81 Patient seen today on 12/26/2023, remains in the ICU intubated mechanically ventilated sedated patient is on assist-control rate of 16 tidal volume 400 FiO2 30% PEEP of 5 ABG showed a pO2 of 82 pCO2 34 pH of 7.43. Patient is now on TPN at 30 cc/h propofol at 50 mcg/kg/min hemoglobin is down to 6.8 today and he is receiving a unit of packed RBCs. His IV fluids at 50 cc/h in the form of 0.9 normal saline. He was last night on a small dose of norepinephrine at 0.01 mcg/kg/min and is presently on hold. Antibiotics arce patient is on Zosyn daptomycin and Eraxis. Chest x-ray continues to show significant airspace disease involving the right upper lobe and right lower lobe not much of a change noted on the chest x-ray. Clinically the patient is about the same, today I plan to discontinue propofol, arrange for the patient to go on Precedex, and assess mental status off sedation. If tolerated, may transition the patient again to pressure support and CPAP type of mechanical ventilation, but he is not ready to go to that transition yet. WBC count is 11.6 hemoglobin 6.8. ABG today showed a pO2 of 82 pCO2 34 pH of 7.43 potassium is 3.3 being addressed accordingly BUN is 53 creatinine 1.84 Patient was evaluated today on 12/27/2023, remains in the ICU intubated and mechanically ventilated. Patient is presently on IMV mode of mechanical ventilation with pressure support rate of 16 pressure support 14 tidal volume 400 FiO2 30% and PEEP of 5 ABG showed a pO2 of 99 pCO2 31 pH of 7.44. Intermittently the patient has been experiencing episodes of extreme agitation and restlessness he is on Precedex at 0.5 mcg/kg/h. Patient is on IV fluid 0.9 normal saline at 50 cc/h and is also receiving TPN. Remains on Eraxis daptomycin and Zosyn patient is intermittently requiring Dilaudid, Ativan does not seem to help his agitation and restlessness. But Dilaudid does hence I would recommend 0.5 mg every 2-3 hours as needed for agitation. Patient has good urine output roughly about 100 cc/h. Continues to have leakage around the jejunostomy tube, and patient is undergoing the J-tube exchange today. Family is at bedside, seems to be quite anxious about his overall condition, and I explained to the that we are doing the best we can considering his critical illness situation and critical illness polyneuropathy. Patient is profoundly weak, and weaning the patient from mechanical ventilation is almost impossible. At least not at this point yet WBC count is 10.9 hemoglobin is 8.1 basic metabolic profile is normal BUN is 46 creatinine 1.90 patient has been off hemodialysis since the . Chest x-ray continues to show stable findings with right upper lobe opacity and right lower lobe opacity and possibly a small right-sided pleural effusion Was evaluated today on 12/28/2023, patient remains in the ICU, intubated and mechanically ventilated, on IMV mode of mechanical ventilation rate set at 16 he is on pressure support of 14 tidal volume 400 FiO2 30% and PEEP of 5 ABG showed a pO2 of 113 pCO2 31 pH of 7.43. No major events overnight, patient is still requiring Precedex at 0.7 mcg/kg/h. He is on TPN as we could not use his jejunostomy tube, no jejunostomy tube was done yesterday, IV fluid is 0.9 at 50 cc/h remains on TPN at 65 cc/h patient is on Eraxis daptomycin and Zosyn. Chest x-ray is showing improvement in his right upper lobe airspace disease/lung abscess and there is a slight improvement in his right lower lobe opacity. Kathryn ent is arousable but does not follow any instructions, patient gets agitated easily if aroused and he started gagging on the tracheostomy tube. Family is at bedside, again updated on his condition. WBC count is 7.6 hemoglobin 7.9. Basic metabolic profile is normal BUN is 45 creatinine down to 1.51 patient has not had any dialysis since 12/17, his renal functioning and urine output continues to improve, hence I am strongly recommending removing his dialysis catheter Patient was seen on 12/29/2023, remains intubated and mechanically ventilated, in the ICU, on IMV of 16 tidal volume 400 FiO2 30% PEEP of 5 ABG showed a pO2 of 105 pCO2 31 pH of 7.45. Remains on Precedex at 0.8 mcg/kg/h, remains on TPN at 65 cc/h IV fluid 0.45 at 50 mL/h remains on multiple antibiotics and antifungal including Eraxis daptomycin and Zosyn. His hemodialysis catheter has been removed, urine output has been excellent renal functioning is improving chest x- ray is showing improvement in his right upper lobe airspace disease/pulmonary abscess. Right lower lobe seems about the same with chronic opacity and possibly some small right-sided pleural effusion. Family is at bedside, patient is arousable but does not follow any instructions. Gets extremely restless and agitated easily hence patient is receiving Dilaudid which seems to be working much better for this patient than benzodiazepines. And we are trying to avoid Ativan, trying to avoid any propofol as much as possible. I believe his drainage from the jejunostomy tube is becoming less and less, hence we could start considering early next week arrangement to possibly transfer the patient to a select care specialty. In the meantime I am recommending that we go down on the IMV rate by 2 every 2 hours the goal is pressure support of 14 and IMV of 8. Progress note dated December 30, 2023. This is a 73-year-old male who is now been in the hospital for 48 days. The patient was admitted back on November 11. Currently, he is seen in the intensive care unit, room 253. The patient is currently on synchronized IMV mode, rate of 8, pressure support of 14, PEEP of 5, FiO2 30%, and a backup tidal volume of 400 cc. Blood gases showed a pO2 of 87, pCO2 of 31, and a pH of 7.42. The patient will be switched back to the volume assist-control mode, as he is not ready to be weaned. His minute volume is nearly 18 L/min. He is breathing at a rate of about 40 times per minute. He currently is on Precedex 0.8 mics per kilogram per minute, TPN at 90 cc an hour, and half-normal saline at 50 cc an hour. The patient continues on Zerbaxa, Eraxis, and daptomycin. White count 11.5, hemoglobin 8.1, hematocrit 25, platelet count of 78,000. Sodium 142, potassium 4.2, chlorides 119, CO2 20, BUN 42, and creatinine 1.22. Glucose is 178. Albumin is 1.9. Sputum from December 24 shows evidence of Citrobacter freundii and Pseudomonas aeruginosa. Blood cultures from the same day were positive for Staphylococcus. Chest x-ray shows extensive pleural-parenchymal opacities, in both lungs, and the chest x-ray is largely unchanged from the pre vious days x-ray. Progress note dated December 31, 2023. 73-year-old male now here in the hospital for 49 days. The patient was admitted way back on November 11. He is seen today in room 253. Family members are at the bedside. The patient currently is on volume assist-control, rate 32, tidal volume 400, FiO2 30%, PEEP of 5. Blood gases show pO2 of 94, pCO2 of 35, pH is 7.40. Unfortunately, the patient is not synchronous with the ventilator, and so we switched to pressure regulated volume control or VC plus. We set an inspiratory time at 0.8 seconds, and the targeted tidal volume of 450 cc. The patient is on TPN at 70 cc an hour, saline at KVO, propofol at 40 mcg/kg/min. The patient continues on Eraxis, daptomycin, and Zerbaxa. Current labs include a white count 12.8, hemoglobin 7.3, hematocrit 22.4, and a platelet count of 67,000. Sodium 140, potassium 3.6, chlorides 119, CO2 20, BUN 43, creatinine 1.15. Glucose is 223. Calcium is 6.8. Today's chest x-ray is largely unc hanged. Progress note dated January 01, 2024. 73-year-old male seen again in room 253. The patient has not been in the hospital for 50 days. The patient continues on the mechanical ventilator. He is on pressure regulated volume control, or VC plus. His target tidal volume is 450 cc and his inspiratory time RTI is 0.8 seconds. His respiratory rate is 32. PEEP is 5, and FiO2 is 30%. Blood gases show pO2 of 98, pCO2 of 34, and a pH of 7.40. The patient continues on propofol at 15 mcg/kg/min, and TPN at 90 cc an hour. The patient also continues on Zerbaxa, daptomycin, and Eraxis. White count is 12.1, hemoglobin 7, hematocrit 22.0, and platelet count 69,000. Sodium 141, potassium 4.3, chlorides 120, CO2 19, BUN 44, creatinine 1.11. Calcium is 7. Chest x-ray shows a right-sided pleural effusion, with adjacent atelectasis and/or consolidation. There is a small left-sided pleural effusion as well. Progress note dated January 02, 2024. 73-year-old male seen again in room 253. The patient has not been here in the hospital for 51 days. He remains on mechanical ventilator. He is on the pressure regulated volume control modality no also noted his VC plus. The patient is on a rate of 32 breaths/min, PEEP of 5, FiO2 30%, inspiratory time her TI was 0.8, and a target tidal volume of 450 cc. Blood gases show pO2 of 90, pCO2 34, pH is 7.40. The patient is receiving TPN at 90 cc an hour, propofol at 20 mcg/kg/min, and has received a total of 6 units of packed red blood cells. The patient is going to get Dilaudid and Ativan scheduled. Dilaudid will be 1 mg every 2 hours, and Ativan 1 mg every 6 hours. The patient continues on daptomycin, Eraxis, and Zerbaxa. White count is 10, hemoglobin 6.5, hematocrit 20.3, platelet count 83,000. Sodium 140, potassium 4.6, ch lorides 119, CO2 20, BUN 45, creatinine 1.08. Most recent cultures are from December 24, showing evidence of Citrobacter from the and Pseudomonas aeruginosa, in the sputum. Blood cultures, on the same day, show evidence of Staphylococcus species. Chest x-ray shows extensive pleural-parenchymal opacities in the right hemithorax, and patchy opacity at the left lower lobe area. Progress note dated January 03, 2024. 73-year-old male seen in room 253. The patient has now been in the hospital for 52 days. He remains on mechanical ventilator, with the modality being the pressure regulated volume control modality, also known as VC plus. The patient's inspiratory time is 0.8 seconds, and his targeted tidal volume is 450 cc. Rate is 32, FiO2 30%, PEEP of 5. Blood gases show pO2 of 95, pCO2 of 34, pH of 7.41. The patient is on TPN at 90 cc an hour, propofol at 15 mcg/kg/min, saline at 10 cc an hour. Daptomycin and Eraxis have been discontinued. Zerbaxa is on day #6 of . We are going to DC the metoprolol and midodrine from the [facility]. Apparently, the patient has been denied twice, to the half-way acute care facility by his insurance. White count is 1.5, hemoglobin 8, macro 24.4, platelet count 78,000. Sodium 139, potassium 5.3, chlorides 119, CO2 20, BUN 44, creatinine 1.05. Glucose 192. Calcium 7.1. Magnesium 1.8. The chest x- ray today, is largely unchanged. Progress note dated January 04, 2024. 73-year-old male seen in room 253. The patient has now been in the hospital for 53 days. He remains on the mechanical ventilator. He is on pressure regulated volume control or VC plus, but the inspiratory time is 0.8 seconds, and a targeted tidal volume of 450 cc. His rate is 32, FiO2 is 30%, PEEP of 5. Blood gases show pO2 of 81, pCO2 of 35, and a pH of 7.44. He is on propofol at 10 mcg/kg/min, TPN at 90 cc an hour, and saline at 10 cc an hour. His only anti biotic currently is Zerbaxa. White count 13.4, hemoglobin 8.1, hematocrit 25, platelet count 95,000. Sodium 141, potassium 5.2, chlorides 114, CO2 23, BUN 47, creatinine 1.10. Glucose is 110. Calcium 7.4. Albumin is 1.8. Chest x- ray shows a largely unchanged evaluation. Progress note dated January 05, 2024. 73-year-old male seen in room 253. The patient has now been in the hospital for 54 days. He remains on mechanical ventilator. He is on pressure regulated volume control, with inspiratory time of 0.8 seconds, and a targeted tidal volume of 450 cc. Rate is set at 32, FiO2 30%, PEEP of 5. Blood gases show pO2 of 98, pCO2 35, and a pH of 7.42. The patient's propofol has been weaned off. He is just getting scheduled Dilaudid and Ativan. He is getting TPN at 90 cc an hour, saline at 10 cc an hour. His only antibiotic is Zerbaxa, as Eraxis, and daptomycin has been discontinued. The patient will get a spontaneous breathing trial today with pressure support of 10 and CPAP of 5. White count 11.3, hemoglobin 7.6, hematocrit 23.4, platelet count 100,000. Sodium 138, potassium 3.9, chlorides 116, CO2 21, BUN 46, Creatinine 1.07. Albumin Is 1.9. Chest x- ray is largely unchanged. Patient was reevaluated today on 01/17/2024, patient was supposed to be sent home today with hospice to follow at home, however the family today/ change her mind, and asking to consider palliative care, she is also asking for a second opinion but she is not specific about the second opinion, explained to her that the only 3 milled lumber grader that we have in this institution is myself Dr. Livia espinoza and Dr. Nieves and we have all given the same opinion, and if she could find a place where they could accept him to transfer to another institution, I will be more than happy to do so patient was declined transfer to [facility] he was also declined transfer to the [facility]. Today he is on pressure control mode of mechanical ventilation basically unchanged compared to yesterday. He remains on Precedex 1.4 mcg/kg/h remains on TPN, still could not use his J-tube. Patient is intermittently on Dilaudid, antibiotics arce he is receiving Cipro and fluconazole. Patient had multiple attempts to wean, could not tolerate more than few hours of pressure support of 14 and CPAP this has been done quite frequently and sometimes he does not even tolerate the switch from pressure control mode of mechanical ventilation to pressure support of mechanical ventilation. Patient is definitely a failure to wean and multiple attempts have failed. Patient has critical illness polyneuropathy he continues to have some nonspecific airspace disease bilaterally continues to have a pigtail catheter in place, and continues to have air leak,WBC count today is 16.3 hemoglobin 8.1 electrolytes showed low potassium of 3.3 being addressed accordingly renal profile is normal. Chest x- ray today is actually showing improvement compared to the previous x-rays he had all along. With significant improvement in the right upper lobe and the right lower lobe, continues to have some infiltrate in the left lower lobe Castriz seems to be intact Patient was seen01/18/24, remains in the ICU, remains intubated and mechanically ventilated, he is on pressure control mode of mechanical ventilation with pressure control of 15, DI of 0.8, rate 20, FiO2 30% and PEEP of 5 no ABG was done this morning did not feel to be necessary. Patient had a WBC of 15.8 hemoglobin 7.4. Basic metabolic profile is normal renal profile is normal continues to have bilateral airspace disease on chest x-ray specially the right upper lobe, and left lower lobe. Continues to have a pigtail catheter in place and continues to drain and he continues to have a air leak. Patient remains on ciprofloxacin, he is also on fluconazole, tobramycin was added by infectious disease on the case. Patient is getting now physical therapy and Occupational Therapy, he remains on Precedex at 1.3 mcg/kg/h he is also on TPN at 90 cc/h chest x-ray was noted and again he has bilateral airspace disease. Patient remains frail, chronically ill, and he does have clearly critical illness polyneuropathy. No plans by surgery to do much about his J-tube, continues to have a wound VAC in place. Today the patient will be given another trial of pressure support and CPAP, and will document how long he could do on pressure s upport mode of mechanical ventilation Patient was seen today on 01/19/2024, patient remains in the ICU, intubated and mechanically ventilated. Patient tolerated about 2 hours of pressure support and CPAP weaning yesterday, then he became restless, agitated, and went on to develop this ongoing cough. Hence had to be placed back on mechanical ventilation and remains on pressure control mode of mechanical ventilation with PI 15 ti 0.8 per 820 FiO2 30% PEEP of 5. Patient continues to have episodes of agitation and he has been on Precedex at 1.1 mcg/kg/h. Remains on TPN at 90 cc/h remains on IV fluid of 0.9 at 50 cc/h sodium is 129, that we will correct with 0.9 normal saline. Patient remains on tobramycin and ciprofloxacin and fluconazole. Continues to have right-sided pigtail catheter in place, and continues to have ongoing air leak. Chest x-ray continues to show airspace disease in both lungs but more concerning is the right upper lobe abnormality. Multiple attempts have been made in the past to wean the patient, and has not been able to tolerate more than few hours of pressure support and CPAP, will try another weaning trial today with pressure support of 14 and CPAP. Unfortunately I cannot place the patient on Seroquel and hoping to get rid of Precedex, mostly because we cannot use his GI tract. Fanny arce the patient remains on TPN. Progress note dated January 20, 2024. 73-year-old male who is now been in the hospital for 69 days. I last saw the patient on January 05, 2024. Currently, the patient remains in the intensive care unit, room 253. He spent about 20 hours on pressor support of 14 and CPAP of 5, yesterday, and is currently back on pressor support and CPAP. When not on pressor support and CPAP, the patient is on pressure assist control, with an inspiratory pressure of 15 cm of water, and inspiratory time is 0.8 seconds. Respiratory rate 20, PEEP 5, and FiO2 30%. The patient remains on TPN at 90 cc an hour, and saline at 50 cc an hour. He continues on Precedex at 1 mcg/kg/h. The patient is also on ciprofloxacin, tobramycin, and Diflucan. Current labs are good a white count 16.3, hemoglobin 8.3, hematocrit 25.3, and a normal plate let count. Sodium 130, potassium 3.7, chlorides 103, CO2 22, BUN 30, creatinine 0.65. Albumin is 2.2. Glucose is 195. Most recent sputum shows evidence of Pseudomonas aeruginosa. Chest x-ray is showing chronic changes, with no appreciable change. Progress note dated January 21, 2024. 73-year-old male who has now been in the hospital for 70 days. The patient is seen again today in room 253. Since yesterday, the patient has been on pressor support of 14, CPAP of 5. FiO2 is 30%. He did not need to go back on pressure assist control ventilation. He is currently on Precedex and 0.9 mcg/kg/h, TPN at 90 cc an hour, saline at KVO. The patient had a pretty uneventful night. He does have some episodes of coughing. We did add some aerosolized lidocaine, which seemed to help initially, but may be more recently not so much. White count 16.6, hemoglobin 7.8, macro 24.4, and platelet count normal. Sodium 129, potassium 3.7, chlorides 102, CO2 21, BUN 27, creatinine 0.59. Glucose 168. Magnesium 1.4. Most recent sputum culture showed evidence of Pseudomonas aeruginosa. No chest x-ray today. The patient is currently on tobramycin, ciprofloxacin, and fluconazole, as per infectious diseases. Progress note dated January 22, 2024. 73-year-old male who is now been here for 71 days. The patient is seen today in room 253. He continues on pressure support of 14, CPAP of 5. The patient's FiO2 is 30%. He is getting TPN at 90 cc an hour, saline at 50 cc an hour, and Precedex at 0.5 mcg/kg/h. He continues on ciprofloxacin, tobramycin, and fluconazole. We will attempt some trach collar today. White count 14.9, hemoglobin 7.9, hematocrit 24.6, platelet count 399,000. Sodium 130, potassium 3.6, chlorides 104, CO2 22, BUN 25, creatinine 0.64. Glucose is 180. Albumin i s 2.3. Progress note dated January 23, 2024. 73-year-old male seen today in room 253. Since about noon yesterday, the patient's been on trach collar 40%. Prior to that, the patient was on pressor support and CPAP. The patient continues on TPN at 90 cc an hour, saline at 50 cc an hour. The patient continues on ciprofloxacin, and fluconazole. In addition, the patient is on Precedex 0.5 mcg/kg/h. We are hoping to get the patient to long-term acute care today. Labs today include a sodium 131, potassium 3.7, chlorides 102, CO2 23, BUN 22, creatinine 0.67. Glucose is 164. Calcium 7.6. Albumin 2.5. Most recent sputum sample from January 06, shows evidence of Pseudomonas aeruginosa. No chest x-ray today. Progress note dated January 24, 2024. 73-year-old male seen today in room 253. The patient has been on 40% trach collar, for more than 2 days. The patient continues on TPN at 90 cc an hour, saline at 50 cc an hour. Precedex has been weaned off. The patient continues on alternative medications such as Ativan and Dilaudid. Current labs include a white count 15.9, hemoglobin 7.8, hematocrit 24.4, and a normal platelet count. Sodium 130, potassium 3.5, chlorides 106, CO2 23, BUN 21, creatinine 0.67. Albumin is 2.3. Progress note dated January 25, 2024. 73-year-old male who is now been in the hospital for 72 days. The patient is currently on 40% trach collar. He has been on trach collar for about 3 days. He is getting TPN at 90 cc an hour, saline at 50 cc an hour. According to his , he has been denied transfer to long-term acute care facility. He may end up in a local [facility]. Current labs include a white count 20.1, hemoglobin 8.3, hematocrit 26.7, and a normal platelet count. Sodium 131, potassium 3.8, chlorides 106, CO2 20, BUN 21, and creatinine 0.66. Glucose is 139. Calcium is 7.3. Chest x-ray shows bilateral airspace disease, which is improved. CT scan of the chest abdomen pelvis shows decreasing of the hydropneumothorax in the right lung, bibasilar infiltrates, dilated small bowel loops, possible acute diverticulitis of the sigmoid colon, moderate anasarca, and the presence of a peritoneal dialysis catheter and small bowel drainage tube. Progress note dated January 26, 2024. 73-year-old male who is now been here in the hospital for 75 days. The patient continues on 40% trach collar. He has been on trach collar for about 3 days now. He is also receiving TPN at 90 cc an hour, saline at 50 cc an hour. Apparently, his admission to long-term acute care, and to the [facility]ci, was denied. Current labs include a white count 16.3, hemoglobin 7.2, hematocrit 22, platelet count 403,000. Sodium 130, potassium 3.4, chlorides 104, CO2 25, BUN 19, creatinine 0.66. Glucose 148. Calcium 7.1. Patient was evaluated today on 02/05/2024, remains in ICU, intubated mechanically ventilated on assist-control rate of 20 tidal volume 620 FiO2 40% PEEP of 5 ABG showed a pO2 of 91 pCO2 40 pH of 7.50 patient developed bowel perforation and pneumoperitoneum day before yesterday, and he is on antibiotics, surgery is not planning any surgical intervention because of high risk. Patient continues to have distended abdomen patient remains on propofol at 45 mcg/kg/min he is also on TPN at 45 mL/h. Today I went ahead and placed a right radial arterial line, patient is getting blood draws and prefers to have it done from the arterial line instead of poking him on a daily basis. X-ray continues show similar findings compared to chest x-ray yesterday, continues to have pigtail catheter on the right side with ongoing air leak. Antibiotics arce remains on Zosyn and tobramycin sputum cultures have been growing Pseudomonas aeruginosa and now his abdominal findings are of concerns and the patient has acute pneumoperitoneum. Patient was evaluated today on 02/06/2024, remains in the ICU remains intubated remains ventilated. Patient is on assist-control rate of 20 tidal volume 620 FiO2 40% PEEP of 5 ABG showed a pO2 of 135 pCO2 38 pH of 7.49. Continues to have air leak noted in the chest tube. Chest x-ray is basically about the same continues to have scattered infiltrates left more so than right, pigtail cath eter remains in place, no evidence of pneumothorax noted on the chest x-ray today. WBC is 12.5 hemoglobin is 7.7, basic metabolic profile is normal renal profile is normal bicarb is 28. Patient remains on Zosyn and on tobramycin. Hemoglobin today is 7.7. Patient remains on TPN is at bedside, updated the on his condition and explained to the that his condition is extremely poor, she was expecting to hear from all 3 surgeons who have seen this patient since admission Patient was seen today on 02/07/2024, patient remains about this, he is on assist-control mode of mechanical ventilation, on Precedex, this was started yesterday to replace propofol, patient is arousable, generally weak, follows very simple instructions, a bit lethargic. Patient is on assist-control rate of 20 tidal volume 620 FiO2 35% PEEP of 5 ABG showed a pO2 of 102 pCO2 38 pH of 7.48 hence no changes were made in vent settings his Precedex dose is now 0.6 g/kg/h, remains on antibiotics in the form of Zosyn and tobramycin as per infectious disease on the case, remains on TPN at 45 cc/h today we had a long bleeding with the family and the different consultants on the case, and family was made aware of his poor prognosis and the surgeon made it clear that it is impossible and extremely risky to take him back to surgery and perform exploratory laparotomy he feels that this is potentially disastrous. Hence the patient cannot have surgery and in the meantime we are medically managing knowing that mortality is extremely high either way whether the patient goes to surgery or continue medical therapy I specifically asked the surgeon if he would consider exploratory laparotomy and he clearly stated he would not do so. Because of the high risk and totality. 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 ABG sh owed a pO2 of 93 pCO2 36 pH of 7.47 patient is awake, appropriate, follows instructions, denies being in any pain however his abdominal distention seems to be getting worse, and quite tympanitic large area of air noted in the abdomen based on the chest x-ray itself, hence discussed with the surgeon and agreeable to proceed with CT of the abdomen and pelvis today. although what other findings noted on the CT of the abdomen pelvis according to the surgery will not change our treatment. The would like to know the status of his abdomen at this point could be given a trial of pressure support and CPAP today, his nasogastric tube was apparently pulled out by the patient or coughed out by the patient and will try to establish another nasogastric tube this will be done by Dr. Ruiz if she can today is 14.9 hemoglobin 7.5 basic metabolic profile is normal renal profile is normal Symptoms 02/09/2024, remains in the ICU intubated mechanically ventilated on assist-control rate 20 tidal volume 620 FiO2 35% PEEP of 5 ABG showed a pO2 of 70 pCO2 32 pH of 7.51 patient remains on Precedex at 0.8 mcg/kg/h he is also on TPN at 65 mL/h remains on antibiotics in the form of Zosyn and tobramycin yesterday CT of the abdomen continues to show significant pneumoperitoneum, not much of a change compared to his initial CT earlier in the week. Abdomen remains distended and tympanitic. Nasogastric tube was placed yesterday by surgery to help decompression cannot use the tube for feeding. Chest x-ray today is showing worsening infiltrates in the left lower lobe, otherwise the right side remains about the same. He is to have hydropneumothorax and he has a pigtail catheter draining to a Pleur-evac continues to have air leak. The is requesting plans to get him home in the next 24 hours hopefully for palliative care and holistic treatment and I will have geriatric social work professor look into the process of hopefully getting him home for palliative care in the next 24 hours if she wishes to proceed family is well aware of his poor prognosis, his condition has been discussed over and over with all family members in the last 3 months malignancy count is up today 19.5 and that is expected considering his abdominal sepsis his hemoglobin is 7.2Basic metabolic profile is normal renal profile remains normal transfer tech Progress note dated February 10, 2024. This is a 73-year-old male who was admitted back on November 12, 2023. He has not been in the hospital for 90 days. He remains on the ventilator, on volume assist-control, rate 20, tidal volume 620, FiO2 40% PEEP of 5. Blood gases show pO2 of 70, pCO2 32, pH is 7.51. Those blood gases were done on February 08. He remains on Precedex at 0.8 mcg/kg/h, TPN at 65 cc an hour, saline at 20 cc an hour. For antibiotics, he continues on tobramycin and Zosyn. No new labs today. Chest x-ray reveals pneumoperitoneum, extensive bilateral airspace consolidations, a tracheostomy tube, and a feeding tube which terminates below the diaphragm. Objective - Vital Signs Vital signs: Vital Signs Temp 98.5 F 02/10/24 12:00 Pulse 86 02/10/24 13:00 Resp 20 02/10/24 13:00 BP 156/89 02/10/24 13:00 Pulse Ox 95 02/10/24 13:00 FiO2 40 02/10/24 13:00 Intake & Output 02/09/24 02/10/24 02/10/24 18:59 06:59 18:59 Intake Total 2434.5 2435.613 731.833 Output Total 1170 1145 677 Balance 1264.5 1290.613 54.833 Weight 108.3 kg Intake: IV 173 253 588 0.9 Normal Saline @ KVO 140 220 95 Normal Saline Pressure 33 33 15 Saline Piperacillin-Tazobactam 3 75 .375 gm In Sodium Chloride 0.9% 100 ml @ 25 mls/hr IVPB Q8HR [facility] Rx# :[id number] TPN 403 Intake, IV Titration 1546.5 1402.613 78.833 Amount ACETAMINOPHEN IV (For NPO 100 ) 1,000 mg In Empty Bag 1 bag @ 400 mls/hr IVPB Q6H PRN Rx#:[id number] Dexmedetomidine/0.9% NaCl 200 281.113 78.833 (Pmx) 400 mcg In Empty Bag 1 bag @ 0.2 MCG/KG/HR 5.375 mls/hr IV .[id number] [facility] Rx#:[id number] Piperacillin-Tazobactam 3 150 25 .375 gm In Sodium Chloride 0.9% 100 ml @ 25 mls/hr IVPB Q8HR [facility] Rx# :[id number] Sodium Acetate 50 meq 1096.5 1096.5 Magnesium Sulfate gm 1.5 gm Potassium Phosphate 6 mmol Sodium Chloride 4Meq /ml Vial 72 meq Calcium Gluconate 1.25 gm Potassium Chloride 50 meq Mvi, Adult No.4 with Vit K 10 ml Trace (Conc-1Ml/ Dose) 1 ml In Amino Acids 5 %/Dextrose 20 % 1,000 ml @ 65 mls/hr IV .BY DURATION [facility] Rx#: [id number] TPN/PPN 715 780 65 TPN 715 780 65 Output: Chest Tube Drainage 0 0 0 Chest Tube Right 0 0 0 Gastric Drainage 50 Drainage 310 Left Abdomen 250 Medial Abdomen 60 Urine 810 1145 675 Stool 2 Other: Voiding Method Indwelling Catheter Indwelling Catheter Indwelling Catheter ABP, PAP, CO, CI - Last Documented Arterial Blood Pressure 183/165 - Exam No acute distress, the patient is currently on dexmedetomidine, and back on the mechanical ventilator. HEENT examination is grossly unremarkable. Neck supple. Full range of motion. No adenopathy thyromegaly or neck vein distention. Midline tracheostomy tube noted. Cardiovascular examination reveals regular rhythm rate. S1-S2 normal. No S3 or S4. No discernible murmur noted. Heart sounds are distant. Lungs reveal mild scattered rhonchi. No wheezes or crackles. Breath sounds equal. Saturations are 95%. Abdomen soft, without bowel sounds. Extremities are intact. No cyanosis clubbing or edema. Skin is without rash or lesion. Neurologic examination is very difficult to assess. - Labs CBC & Chem 7: 02/09/24 04:51 02/09/24 04:51 Labs: Abnormal Lab Results - Last 24 Hours (Table) 02/09/24 02/09/24 02/10/24 Range/Units 18:10 23:28 06:29 POC Glucose (mg/dL) 191 H 150 H 173 H (70-110) mg/dL 02/10/24 Range/Units 12:04 POC Glucose (mg/dL) 186 H (70-110) mg/dL Assessment and Plan Assessment: Acute hypoxemic respiratory failure with failure to wean from mechanical ventilation, S/P tracheostomy/PEG tube on December 10, 2023. Respiratory failure, requiring reintubation, on November 25, 2023. Acute hypoxic respiratory failure requiring intubation/mechanical ventilation secondary to aspiration during EGD on 11/12/2023. Patient was extubated on 11/14/2023. S/P bowel perforation with pneumoperitoneum. S/P J-tube placement 11/16/2023, which continues to leak. Critical illness polyneuropathy. Septic shock. Acute kidney injury secondary to sepsis, and ATN. Acute bowel obstruction, diagnosed via CT scan, November 24, 2023. Acute aspiration pneumonia. Acute aspiration during upper endoscopy most likely secondary to gastric outlet obstruction secondary to non-Hodgkin's lymphoma. Chronic abdominal pain, secondary to B-cell lymphoma. Unexplained weight loss most likely secondary non-Hodgkin's lymphoma involving the stomach. Paroxysmal atrial fibrillation. Multiple other medical problems and comorbidities. Chronic anemia. Plan: Plan dated November 21, 2023. The patient is seen today in room 517. The patient is on 3 L of oxygen. He continues on Zosyn. Continues on tube feeds. He had a CT scan of the abdomen and pelvis. His respiratory status is improved. We will continue to follow. Prognosis is guarded. Labs, x-rays, medications are reviewed. The patient is apparently scheduled for an outpatient PET scan. Plan dated November 22, 2023. The patient appears very stable. His is in the room with him. Labs, x- rays, and medications are reviewed. The patient continues on Zosyn. Resting room air saturation was 89%. Chest CT, revealed bilateral patchy and basilar infiltrates. We will continue to follow make recommendations along the way. Prognosis is guarded. The patient was diagnosed with a gastric outlet obstruction, secondary to non-Hodgkin's lymphoma. Plan dated November 23, 2023. The patient is seen today in room 517. He is resting comfortably. He continues on saline at 10 cc an hour. He is getting tube feedings with Pivot at 20 cc an hour. He has been weaned down to 2 L of oxygen. He continues on Zosyn. Labs, x-rays, and all medications are reviewed. Prognosis is guarded. We will continue to follow. Plan dated November 24, 2023. The patient will be admitted to the intensive care unit. I believe he deserves to be an ICU patient. I did speak to the surgeon. Labs, x-rays, and medications are reviewed. No additional recommendations are made. Prognosis is guarded. The patient has now been in the hospital for 12 days. We will continue to follow. He continues on Zosyn. Plan dated December 14, 2023. The patient is seen today in room 253. Currently, the patient is on the ventilator. He will have another PSV/CPAP trial. Apparently yesterday, he went for about 2-1/2 hours before he required to be placed back on the ventilator. The patient is getting saline at 10 cc an hour, and Nepro tube feedings at 50 cc an hour, which is goal. The patient had a fever, and will be recultured. In addition, the midline incision in the abdomen, shows some evidence of purulence, and will have a surgeon, take a look at that. Currently, the patient is not on any antibiotics. We will recheck a procalcitonin level. One of the family members was in the room, and was updated. Plan dated December 15, 2023. The patient actually spent about 6 hours on pressor support yesterday. The patient will have another spontaneous breathing trial today. The patient remains off of all sedation. He is getting Ativan and Dilaudid as needed. He is receiving tube feedings at goal. Labs, x-rays, and medications are reviewed. The repeat procalcitonin level was elevated at 1.92. We added Zosyn empir ically. He had pancultures done yesterday. Labs, x-rays, and all medications are reviewed. Prognosis is guarded. An update was given to the daughter and to the right. Dictation was produced using [employer] software. Please excuse any grammatical, word or spelling errors. Plan dated December 30, 2023. The patient is seen today in room 253. The patient has now been in the hospital for 48 days. He was admitted way back on November 11. The patient currently is not ready to be weaned, given his high respiratory rate, and high minute volume. The patient is converted back to volume assist-control. In addition, the patient continues on Zerbaxa, Eraxis, and daptomycin, because of recent infections, including Pseudomonas, and Citrobacter, as well as Staphylococcus. Labs, x-rays, and medications are reviewed. The patient will continue on a small dose of propofol, Dilaudid as needed, and Ativan. Dexmedetomidine which is currently running was to be discontinued. Additional recommendations and suggestions are forthcoming. Prognosis is poor in my opinion. The patient remains a full code. The remains hopeful. Dictation was produced using [employer] software. Please excuse any grammatical, word or spelling errors. Plan dated December 31, 2023. The patient is seen today in room 253. Family members are at the bedside. After observing the patient on the ventilator, for period of time, it was clear to me, the patient was not synchronous with the ventilator. For that reason, we switched from volume assist-control, to pressure regulated volume control or VC plus. The patient had a inspiratory time of 0.8 seconds, and a targeted tidal volume of 450 cc. Everything else stayed the same. After switching, the patient's respiratory rate came down, as did his minute volume. He appeared much more comfortable. Labs, x-rays, medications are reviewed. The patient continues on Zerbaxa, Eraxis, and daptomycin. We will continue to follow. Prognosis is guarded. No additional recommendations are made. The patient is on propofol at 40 mcg/kg/min. I have asked the nurses to use both Ativan every 6 hours, and Dilaudid every 2 hours as needed, to see if we can get him on a small dose of propofol so that we can send the patient to long-term acute care facility. Prognosis is guarded. Dictation was produced using [employer] software. Please excuse any grammatical, word or spelling errors. Plan dated January 01, 2024. The patient is seen today in room 253. I had a long conversation with the patient's family yesterday. It was encouraged, by the primary service, Dr. Rowe. Dr. Rowe also talked to the family about CODE STATUS, and the possibility of a palliative care consult or hospice consultation. The patient is chronically and critically ill, but stable. The patient remains on the mechanical ventilator, and is not able to be weaned at this time. Previous attempts at weaning, has caused significant increases in respiratory rate, significant increases in minute volume, and disruptions of his vital signs. The patient continues on Zerbaxa, daptomycin, and Eraxis. The patient is on a relatively smaller dose of propofol at 15 mcg/kg/min. I have encouraged the nurse to wean that down even further. In addition to propofol, the patient is receiving Ativan, and Dilaudid as needed. Labs, x-rays, medications are rev iewed. The patient could be considered for possible discharge to long-term acute care facility or select specialty. Plan dated January 02, 2024. I have ongoing discussions with the family. The patient is doing very poorly in my opinion, and is currently not weanable. The patient, could be transferred to a long-term acute care facility or specialized nursing facility. We are attempting to get his propofol dose down to a reasonable level. I did asked the nurses to make sure that the patient got his Dilaudid, and Ativan, as scheduled medications. The patient blood gases are excellent. pO2 is 90, pCO2 is 34, pH is 7.40. The patient remains on pressure regulated volume control modality of ventilation. Labs, x-rays, and all medications are reviewed. The patient is overall prognosis remains poor. The patient remains a full code patient. I did have a long talk with the patient's just a few days ago. Plan dated January 03, 2024. The patient is seen again in room 253. The , and one of the family members at the bedside. The patient continues on mechanical ventilation, and at this time, cannot be weaned. The patient is getting TPN at 90 cc an hour, propofol at 15 mcg/kg/min. The patient is receiving saline at 10 cc an hour. We were in contact with the infectious disease doctor. Daptomycin and Eraxis were discontinued. The patient is on day #6 of 10, on Zerbaxa. Metoprolol and midodrine were discontinued from the [facility]. The patient's insurance denied transf er to a long-term acute care facility twice now. Labs, x-rays, medications are reviewed. The patient is overall prognosis is very poor. Today's peak airway pressure is 19 cm of water. The Plateau pressure is 11 cm of water. We will continue to follow the patient, make recommendations along the way. I have had ongoing discussions with the patient's . Plan dated January 04, 2024. The patient is seen in room 253. The and daughter are in the room with the patient. She apparently did call [facility] yesterday, to see if they would except her . They apparently said that they had no beds, and did not currently except him. The patient continues on the mechanical ventilator. The patient's antibiotics have been pared down, to only Zerbaxa for another 3 to 4 days. The patient is down to propofol at 10 mcg/kg/min, TPN at 90 cc an hour, and saline at 10 cc an hour. The patient remains on VC plus modality of ventilation. Blood gases show pO2 of 81, pCO2 of 35, pH is 7.44. Labs, x-rays, medications are reviewed. Prognosis is guarded. We will continue to follow. Plan dated January 05, 2024. The patient will be given a spontaneous breathing trial, with pressure support of 10, CPAP of 5. I have asked the respiratory therapist to watch the patient c arefully. Should he demonstrate any worsening respiratory status, high respiratory rate, low tidal volumes, high heart rate, diaphoresis, changes in blood pressure, or anything that would suggest fatigue, she should switch her back to the former modality. Labs, x-rays, medications are reviewed. I did spend some time talking to the patient's . I gave her an update. Apparently the patient's did call [facility], to see if he could be transferred. No beds were available. Also, he has been denied transfer to long-term acute care, by his insurance company, twice. Plan dated January 20, 2024. The patient was on pressor support and CPAP, for about 20 hours yesterday. The patient was placed back on pressor support and CPAP, this morning. When not on pressor support and CPAP, the patient is maintained on pressure assist control, with inspiratory pressure of 15 cm of water, inspiratory time 0.8 seconds, FiO2 30%, rate 20, PEEP of 5. Blood gases were not done. TPN is at 90 cc an hour, saline's at 50 cc an hour and Precedex is 1 mcg/kg/h. The patient remains on ciprofloxacin, tobramycin, Diflucan. Clinically, the patient appears to be tolerating weaning trials reasonably well. We are hoping to have the patient transferred to long-term acute care tomorrow. Additional recommendations and suggestions are forthcoming. Prognosis is guarded. Labs, x-rays, and all medications are reviewed. Dictation was produced using [employer] software. Please excuse any grammatical, word or spelling errors. Plan dated January 21, 2024. The patient is seen today in room 253. Family members are at the bedside as they have been all along during this hospitalization. The patient continues on pressure support of 14, and CPAP of 5, and an FiO2 of 30%. He has been on those settings, since yesterday. Clinically, the patient appears reasonably stable. The patient is currently on Precedex 0.9 mcg/kg/h, and TPN at 90 cc an hour. Labs, x-rays, and all medications are reviewed. We are hoping to be able to get the patient discharged to long-term acute care facility. We will continue to follow make recommendations. In terms of antibiotics, the patient is on ciprofloxacin, tobramycin, and Diflucan. Prognosis is guarded. Plan dated January 22, 2024. The patient is again seen today in room 253. He has not been in the hospital for 71 days. The patient continues on pressure support of 14, CPAP of 5, and 30%. He has been on that for more than a day and a half. He continues on TPN at 90 cc an hour, saline at 50 cc an hour. The patient continues on ciprofloxacin, tobramycin, and fluconazole. He is also on Precedex 0.5 mcg/kg/h. We will attempt a trach collar today. We are waiting for authorization from the long-term acute care facility. Labs, x-rays, and all medications are reviewed. Prognosis is guarded. Dictation was produced using [employer] software. Please excuse any grammatical, word or spelling errors. Plan dated January 23, 2024. The patient is seen today in room 253. The patient is currently on a 40% trach collar. He has been on trach collar since about noon yesterday. Prior to that he was on pressor support and CPAP. He continues on TPN at 90 cc an hour, saline at 50 cc an hour. The patient also continues on Precedex 0.5 mcg/kg/h. Antibiotic arce, the patient is on ciprofloxacin, and fluconazole. We are hoping to get the patient to long-term acute care today. I have asked the nurses to try using Ativan, Dilaudid, and Haldol, and small doses, to get the patient off of Precedex. I did speak to the patient's . I gave her an update. Additional recommendations and suggestions are forthcoming. Dictation was produced using [employer] software. Please excuse any grammatical, word or spelling errors. Plan dated January 24, 2024. The patient is seen today in room 253. The patient continues on 40% trach collar. The patient is getting TPN at 90 cc an hour, saline at 50 cc an hour. The Precedex has been weaned off. He continues on fluconazole, and ciprofloxacin. Tobramycin has been discontinued. Labs, x-rays, and all medications are reviewed. We will continue to follow make recommendations. The patient will likely be discharged either to long-term acute care facility, or one of the local nursing homes. Prognosis is certainly guarded. Plan dated January 25, 2024. The patient is again seen today in room 253. He has not been in the hospital for 72 days. Has been on trach collar 40%, for 3 days. He is getting TPN at 90 cc an hour, saline at 50 cc an hour. The patient apparently was denied admission to long-term acute care. He may end up at a local [facility]. Clinically, he is doing reasonably stable. He continues on ciprofloxacin, and fluconazole as per infectious diseases. The results of his chest x-ray, CT scan of the chest abdomen and pelvis, are reviewed. Prognosis is guarded. Dictation was produced using [employer] software. Please excuse any grammatical, word or spelling errors. Plan dated January 26, 2024. The patient is seen today in room 253. The patient continues on a trach collar, at 40%. The patient is receiving TPN at 90 cc an hour, and saline at 50 cc an hour. Labs, x-rays, and all medications are reviewed. The patient continues on ciprofloxacin, and fluconazole. The patient is stable to be transferred out to the 3 S. unit. I am not sure that there is a bed available for him. Apparently, he was refused admission to long-term acute care, and one of the local nursing homes. We will continue to follow make recommendations. Labs, x- rays, and all medications are reviewed. Plan dated February 10, 2024. I feel the patients family is being very unrealistic. The wants to take the patient home on the mechanical ventilator. The home care team, feels like his current needs, are more than they can provide. Labs, x-rays, and all medications are reviewed. The patient remains on the ventilator. He is on volume assist-control, tidal volume 620, rate 20, FiO2 40%, PEEP of 5. The patient remains on TPN at 65 cc an hour, and Precedex 0.8 mcg/kg/h. The patient continues on tobramycin and Zosyn. Labs, x-rays, and all medications are reviewed. When I was in the room today having a conversation with the , she became very unreasonable, and almost hysterical. She wants to take the patient home on the ventilator, with palliative care. This is very unlikely to happen. Time with Patient: Greater than 30
--- NOTE | 2024-02-10 14:48 | P.PN ---
Progress Note - Text Progress Note Date: 02/10/24 Chief Complaint: On the ventilator This is a 73-year-old patient, follows with Dr. Patricia Deal. Patient was seen this morning in the ICU. Patient's and daughter at the bedside. History obtained predominantly by the . Patient been having trouble with his stomach symptoms for close to 8 months. Patient underwent EGD by Dr. Sahara Cheng yesterday. Patient was found to have ulcerated around the antrum and obstruction to the pylorus. A lot of retained food was found. Patient aspirated. Had to be intubated and brought to the ICU. On a Levophed drip. FiO2 50 and a PEEP of 6. Patient had been losing weight lost about 25 pounds. Previously has a history of mitral valve prolapse. November 13: ICU. Patient remains on Precedex drip and propofol drip. Did not do well attempted extubation yesterday. Patient been off Levophed. NG tube to suction. Spoke to patient's and son at the bedside. Biopsy results awaited. Hemoglobin dropped to 6.9 this morning. Get a unit of blood. November 14: ICU. Up in a chair. Extubated yesterday. NG tube to suction. at the bedside. 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 Oncology was consulted. They have ordered a port. Results discussed with Dr. Sahara Cheng. General surgery was consulted for J-tube placement. Discussed with at the bedside. Patient getting IV fluids, IV Zosyn,. Patient has been on IV amiodarone for A-fib-back in sinus rhythm. Multiple PACs. Did receive unit of blood yesterday. Also IV ferric gluconate. November 15: ICU. Patient earlier today underwent jejunostomy tube placement and a port placement. Patient awake. Answering questions. NG tube to suction present. Updated patient's . Patient remains on IV amiodarone and IV Zosyn. November 16: ICU. Up in the chair. NG tube present but not to suction. Trickle feeding through the jejunostomy tube should be started today. Dietitian has been on board. IV Zosyn to continue. Patient's and his sister at the bedside. Discussed. Also spoke with Dr. Serna. Given patient has no other predisposing cardiac factors for the A-fib except acute illness. His LV function is normal. Left atrium is normal. He has already been loaded with IV amiodarone. Will switch him to oral Lopressor 12.5 twice daily. Hence will DC amiodarone. Patient yesterday had wheezing was put on bronchodilators steroids per pulmonary. November 17: Propped up in bed. NG tube was discontinued. Sinus rhythm. Remains NPO. Getting G-tube feeding at 40 cc an hour. Dietitian following. Get arrangements done for DC home tomorrow including tube feeding. Increase activity discussed with patient and elder daughter at the bedside. Still requiring oxygen. Incentive spirometry. November 18: Patient up in recliner. Earlier today spoke to social worker psychiatric David. Informed patient is rather weak and will be going to the [facility]. Looking at authorization. Denae came to the room and spoke to patient his and his daughter. They are very keen to take the patient home as 3 daughters all nurses and they will take care of him at home. Patient earlier today to abdominal cramping and some loose stools.'s tube feeding was held. Told the nurse to start back at the rate of 40 cc an hour. He was before the getting it at 55 cc an hour. Incentive spirometry was again emphasized. Patient remains on 4 L of oxygen. November 19: I saw the patient this morning. Hence I am in the evening. Morning was sitting with his sons. Has some edema. Lungs had crackles I gave him 40 mg of Lasix. He did make good urine. Tube feeding was held from the p revious evening of because of abdominal cramping. Acute abdominal series showed nonspecific bowel gas pattern and SBO to be ruled out. Family and patient was updated. Told him discharge will depend on day by day. Later this afternoon CT scanAnd abdomen pelvis done. Showed small bowel to be 3 point centimeter dilated. Some anasarca. Gastric findings. Gallstones. Later spoke to Dr. Irby from general surgery. They will further review and decide about further plan of action. Will give further dose of IV Lasix because of fluid overload from likely hypoalbuminemia and IV fluids previously received. Patient may take his pills by mouth. Total time spent today about 1 hour with over 40 minutes of discussion. Patient did state his breathing is better after Lasix this morning. November 20: Saw the patient this morning. was present. Patient received 2 more doses of Lasix. Diuresed well. Breathing much better. Lungs are sounding better. Discussed with Dr. Zepeda other surgeon. He is taking 3 cc out of the balloon and the gastrostomy tube. Started trickle feeding at 5 cc an hour. Will see how this does. Later in the day ran into the and the daughter again. Did update them on the same. Dilaudid was discontinued yesterday but morphine was ordered by surgery for patient having pain. Concerns about GI issues with that we will DC the morphine. As family does not want the same. November 21: Patient reclining bed. Tired. Several family members at the bedside. Including his and eldest daughter. Patient started on trickle feed yesterday at 5 cc an hour. This morning he has been on 10 cc an hour. Still having some loose stools. C. difficile was ordered. Patient on 2 L of nasal cannula. Has diuresed well. Will give an additional dose of Lasix today. If C. difficile is negative and the diarrhea is from the tube feedings we may have to use a fecal management system to keep him comfortable. Otherwise patient remains NPO. Dietitian is following the patient. Care was discussed length with patient the and daughter at the bedside. Questions answered. Liquid Tylenol has been added for abdominal pain. Avoid narcotics. Elevated white count likely from Solu-Medrol 11/23/2023--patient was feeling better today. Multiple family member at bedside. No issues overnight. Normal saline at 10 cc an hour, tube feeding at 20 cc an hour, remains on Zosyn, on 3 L oxygen. Afebrile. Heart rate 62, respiratory rate 16, blood pressure 114/67, saturating 91% on 3 L. WBCs 14.5, 9.7 hemoglobin. Platelet 242. BMP is unremarkable. Pulmonary and general surgery following. General surgery recommended to continue tube feeds at 20 cc/h. 11/24/2023--patient reported significant abdominal discomfort, also noted to have leak around G-tube. General surgery is following, evaluated the patient at bedside, adjusted tube feeds. Also reported having diarrhea, on 2 L oxygen, went up to 5 L. Blood pressure was low, 500 mL fluid bolus with close monitoring of respiratory status ordered. Currently on DuoNebs, Solu-Medrol, will continue Zosyn. Chest x-ray showed a left lower lobe infiltrate. Abdominal x-ray showed multiple air-fluid levels. CT abdomen showed multiple dilated small bowel loops, consistent with obstruction, pneumoperitoneum, cholelithiasis and ascites. WBCs 14.1, platelet 255, hemoglobin 8.9. NG tube in place. Family at bedside. patient transferred to SICU for close monitoring. 11/25/23--patient is currently in the ICU, required Levophed overnight due to low blood pressure, low urine output with creatinine trending up. Nephrology following. Sleeve Maker also following. Patient remains n.p.o., NG tube in place, following NG tube insertion patient had total of 2 L output, J-tube was draining approximately 200 cc over last 8 hours, continues to have abdominal pain and abdominal tenderness. Patient on IV fluids. Currently on 4 L oxygen. WBCs 8.2, hemoglobin 12.3, platelet 188. Chest x-ray earlier today showed right sided port and a stable left lung airspace disease, NG tube in place. Patient currently on Zosyn, on IV Dilaudid for pain control, on IV Solu-Medrol. General surgery planning for OR today, started on TPN. 11/26/23--patient was seen and examined today. Patient is currently sedated, intubated on mechanical ventilation. Family at bedside. Patient underwent ex lap, abdominal washout, small bowel resection with new feeding jejunostomy tube placement yesterday, small bowel was noted to be perforated with significant contamination of abdominal cavity. Patient is currently on vancomycin and Zosyn. Creatinine went up to 2.85, nephrology following, recommended to continue IV fluids, avoid nephrotoxin Preserved EF on echocardiogram.. Patient currently on Levophed, vasopressin in the ICU for close monitoring. Patient is afebrile, heart rate 122, blood pressure 129/76, currently on mechanical ventilation, sedated. November 26: ICU. Intubated. FiO2 60 and a PEEP of 5. Drips include IV amiodarone. Heart rate was up early did get fired microgram of IV digoxin and 2.5 mg of IV Lopressor. Did drop her blood pressure bit. Urine output was low. Received 80 mg of IV Lasix. Ahmet to 150 cc. Other drips include IV propofol, vasopressin, Levophed. TPN was started yesterday. Antibiotics include IV Zosyn and vancomycin. Patient has a J-tube to drainage to gravity. Spoke to patient's younger daughter and at the bedside. Prognosis guarded. Continue current treatment plan. Chest x-ray shows right lower lobe consolidation. Small pleural effusion. November 27: ICU. Intubated. FiO2 55 and a PEEP of 5. Antibiotics include IV vancomycin. Drips include Levophed at a small dose, IV vasopressin, propofol, amiodarone. Patient converted to sinus rhythm this morning. Getting TPN and normal saline at 75 cc an hour. Urine output about 25 cc an hour. RAYA drain put out about 260 cc last 12 hours that is last industrial eng. NG tube with bilious output. And also GI J-tube output to gravity. Spoke to patient's and daughter at the bedside. They understand patient still not out of the kee. Platelets have dropped-therefore probably Zosyn stopped. November 28: ICU. Intubated. FiO2 55 and a PEEP of 5. Patient is in sinus rhythm. Seen this morning. Due for dialysis catheter this afternoon. Urine output about 15 to 20 cc an hour. Patient is on IV Lasix 80 mg every 12. Saline is KVO. Drips include IV propofol vasopressin. Patient having significant output through the RAYA drain and the jejunostomy tube to drainage. Creatinine had been getting worse. Patient's at the bedside. Understands patient's remains critically ill. Hemoglobin is down to 7. Given that patient's pain hypotensive, and on vasopressin we will give a unit of blood with dialysis. Getting TPN antibiotic changed to IV meropenem November 29: ICU. Intubated. FiO2 55 and a PEEP of 5. Remains in sinus rhythm. Getting TPN. Dialyzed yesterday and this morning. About 1000 cc removed. Urine output about 50 cc an hour. Patient is on IV propofol. Off vasopressin. Still having significant output through the RAYA drain and jejunostomy tube. Patient received a second unit of blood yesterday. Patient's and daughter at the bedside. I did discuss guarded prognosis. Did asked them to revisit CODE STATUS.. Getting IV meropenem. November 30: ICU. Intubated. Did get a sedation holiday t today. Back on propofol. Getting TPN. Still getting IV Lasix. Fair urine output. Jejunostomy tube in last 8 hours was about 30 cc output. RAYA drain in the 8 hours had about 180 cc output. Telemetry shows sinus rhythm. NG tube has low intermittent suction with negative output. On the vent with FiO2 40 and a PEEP of 5. No hemodialysis today. Discussed with the and eldest daughter at the bedside. IV meropenem-patient's sputum had grown Citrobacter freundii and Pseudomonas aeruginosa. December 01: ICU. Intubated. Jejunostomy tube to gravity. Only 10 cc output in last 24 hours. RAYA drain. About 190 cc last 6 hours. Nasogastric tube to low intermittent suction. Minimal output. Patient is on a small dose of propofol 5 mics. Telemetry shows sinus rhythm. Patient started on small dose of Cleviprex this morning. Blood pressure. Getting TPN. FiO2 35 and PEEP of 5. Discussed with the at the bedside. Hemodialysis today December 02: ICU. Patient remains intubated. FiO2 35 PEEP of 5. Patient is on IV propofol. IV Cleviprex was discontinued yesterday. Also remains on TPN. Telemetry shows sinus rhythm. NG tube is good no output. Still significant output through the RAYA drain. Jejunostomy tube has minimal output. Patient had hemodialysis today 2 L of fluid was removed. Oral half liters yesterday. Patient getting a sedation holiday. General Surgery started the patient on trickle feeding at 10 cc an hour. I did speak to patient's at the bedside. Prognosis remains guarded but there is some improvement. December 03: ICU. Intubated. FiO2 35 PEEP of 5. Drips include IV propofol and Precedex. Getting TPN. Telemetry shows sinus rhythm. Remains on IV Lasix 80 mg twice a day. IV meropenem. Because patient gets easily agitated when transitioning off propofol he has been switched over to Precedex. For hemodialysis today. December 04: ICU. Intubated. FiO2 35 and a PEEP of 5. Patient been taken off propofol is on Precedex. Telemetry sinus rhythm. J-tube with minimal output. RAYA drain with decreased output. NG tube to suction minimal output. Family wanted to hold off trickle feeding until cleared by oncology. Which he did today. Trickle feeding will be started today. Spoke to patient's and one of the daughters at the bedside. Dr. Russ is spoken to the earlier this point they want to do further tracheostomy tube. October 4: ICU. Intubated. FiO2 35 PEEP of 5. Patient remains on Precedex and PPN. Patient's dialysis catheter was not functioning is getting another [address] Bobby this afternoon. Remains on IV meropenem. Has a RAYA drain in the jejunostomy tube to gravity. NG tube to low intermittent suction. No family at the bedside. December 06: ICU. Intubated. FiO2 35 PEEP of 5. RAYA drain putting out about approximately 120 cc per shift. Patient on IV Precedex. FiO2 35 PEEP of 5. Telemetry-sinus rhythm. Patient occasionally been put on small dose of Levophed specially for hemodialysis getting it today. Also started on midodrine for low blood pressure. Tolerating tube feeding at 10 cc an hour. Also had a bowel movement. Mentation has not improved. Even with sedation holiday. Neurology consulted. CT brain shows no acute process. December 07: ICU. Intubated. FiO2 35 PEEP of 5. Telemetry-sinus rhythm. NG tube to suction low intermittent minimal output. Getting TPN. Tube feeding at 20 cc an hour. RAYA drain averaging over 100 cc per shift. Remains on Precedex. EEG was done today. Discussed with at the bedside. Family is currently not inclined for tracheostomy tube today. Day 13 of being intubated December 08: ICU. Intubated. FiO2 35 PEEP of 5. Patient is put on back on propofol per clinical operations manager Dr. JIMENEZ. EEG did show some potential for spikes was put on Keppra by neurology. Telemetry shows sinus rhythm. NG tube to suction with no output. Tube feeding was put on hold because of questionable discharge on the site. Being restarted today. RAYA drain is 150 cc last 12-hour shift. Patient does open eyes. Family has decided to proceed with tracheostomy and surgery has been consulted for the same. Spoke to the at the bedside. For hemodialysis today. December 09: ICU. Intubated FiO2 35 PEEP of 5. Patient seen this morning. Pending tracheostomy placement this afternoon. Remains NPO. G-tube feeding was held overnight. RAYA drain putting out about 100 cc per shift. Received a unit of blood for hemoglobin of 6.6. On 25 mics of propofol. Getting TPN and meropenem. Spoke to the at the bedside. Patient became hypotensive with dialysis yesterday. Levophed had to be given. Only 800 cc were removed yesterday. No hemodialysis today. December 10: ICU . FiO2 35, PEEP 5. Tracheostomy was done yesterday by Dr. Ewing. G-tube feeding was started today at 10 cc an hour. Dietitian following. RAYA drain 12-hour shift overnight put out about 30 cc. Patient hemodialysis today about 1 L removed. Patient has a sacral stage II decub with a dressing. On propofol 20 mics. Spoke to at the bedside. TPN. Meropenem was discontinued yesterday. December 11: ICU. FiO2 35 PEEP of 5. Tracheostomy. NG tube was discontinued. No hemodialysis today. Telemetry shows sinus rhythm. J-tube feeding at 40 cc an hour. TPN was discontinued. Patient has been off propofol also. PICC line in place. Patient had a EEG done today. Spoke to patient's elder daughter at the bedside. May open eyes occasionally. Not really following commands December 12: 73-year-old white male with history of chronic abdominal pain for the last 8 months has been treated with Protonix 40 mg daily for the last 3 months with no improvement. Patient had a 22 pound weight loss in the last [address] of the abdomen and pelvis 3 weeks ago showed thickening of the antral wall with pathological adenopathy posterior to the stomach suspicious of neoplasm. Today the patient underwent elective upper endoscopy to evaluate further, patient received IV sedation by anesthesia endoscope was inserted into the mouth, esophagus was intubated without any difficulty there was evidence of large amount of liquid and solid food noted in the stomach suggestive of gastric outlet obstruction. Scope could not be advanced through the pylorus, however in the prepyloric area there was a large superficial ulceration identified with multiple biopsies were done from this area. The body cardia and fundus could not adequately visualize because of large amount of retained food in the s tomach. Scope was withdrawn back to the stomach and upon careful examination the mucosa of the antrum body and cardia as well as the fundus appeared normal. Procedure was being performed and biopsies were done patient threw up and subsequently became hypoxic there was clearly evidence of witnessed aspiration anesthesia intubated the patient, procedure was terminated, and the patient was transferred to the ICU, this consult was initiated. Patient is now on assist- control rate of 20 tidal volume 500 FiO2 70% PEEP of 10 ABG is pending, earlier ABG showed profound hypoxia patient is on propofol at 50 mcg/kg/min, next ABG is pending. Chest x-ray showed chronic changes without evidence of acute pulmonary disease. 12/14/2023 Patient remains in the ICU, generally weak Patient s/p tracheostomy G-tube in place Patient still has fever and mild tachycardia but tachycardia is improving, leukocytosis improving as well. Hemoglobin 8.1. Creatinine 3.0 and nephrology team on the case. He has mild transaminitis. He was getting Zosyn which is held now, nowCalcitonin is pending 12/14 Patient shon in the ICU, he is still encephalopathic and does not follow command. Neurology service following closely. He is status post tracheostomy. Also J-tube His abdomen looks soft and on exam he has mild coarse secretions. Has a Abarca catheter with clear urine His pro- Calcitonin is still high but trending down 3.0 down to 1.9 No fever this morning WBC slightly less at 16.3 Patient currently off antibiotic He is getting steroids IV Solu-Medrol which might contribute to his leukocytosis. Also he is on IV Keppra by neurologist 12/14 Patient remains confused in the ICU calm, he had a good night per family member and staff. Tracheostomy in place Patient has occasional coughing spells, patient also developed some partial wound dehiscence in his abdomen, surgery team are aware and are going to evaluate the patient Patient also has positive blood culture from 12/13: Gram-positive cocci in clusters. Patient received one-time dose of IV vancomycin. Patient also had fever 2 days ago, leukocytosis and total elevated pro- Calcitonin. Therefore we are going to consult infectious disease team. As his antibiotic Zosyn was stopped few days ago. Currently patient KVO He has good urine output December 16: ICU. Trach. Congested. Requiring suctioning. No hemodialysis today. Getting G-tube feeding at 50 cc an hour. FiO2 30 and a PEEP of 5. On IV Precedex. Eyes open. Does follow commands. Weakness in the limbs. Spoke to at the bedside. Sputum positive for Klebsiella oxytoca and Pseudomonas aeruginosa. December 17: ICU. On trach. Currently cough with increased secretions requiring suctioning. Adding scopolamine patch. Very much clear secretion. CT scan is showing right upper lobe lung abscess. G-tube feeding at 50 cc an hour. Hemodialysis today. RAYA drain putting out about 140 cc a shift. Serous. Has been midline incision wound dehiscence. Wound VAC was placed on it. Stage II ulcer. Patient is on Precedex drip 0.15 mics. Urine output is good about 6200 cc an hour. Spoke to the at the bedside. Patient currently not stable for transfer to LTAC. No limb movements. PT OT on the case. otherwise awake does follow simple commands by face December 18: ICU. Patient seen this afternoon. Because of pain getting IV Dilaudid. No nasal cannula on room air. Does move about his head. Telemetry shows sinus rhythm. FiO2 30 and a PEEP of 5. Patient started on scopolamine patch yesterday has decreased secretions today. Good urine output. Tube feeding at 60 cc an hour. Wound VAC on incisional would be high since in place. RAYA drain continues to make output. No hemodialysis today December 19: ICU. Patient was seen earlier today. FiO2 30 and a PEEP of 5. Sinus rhythm. Awake. Does follow with eyes. Tube feeding got obstructed tube feedings held for now. Increasing oozing from the incision drainage site. at the bedside. Wound VAC remains in place. Good urine output. Dialysis held today. December 20: ICU. Per nephrology no dialysis today. 1 L fluid bolus given. J- tube was replaced over the wire by Dr. Ewing from surgery. On Precedex 0.6 mcg. FiO2 30 and a PEEP of 5 on the vent. RAYA drain putting out of around 100 cc per shift. at the bedside. Drainage through the abdominal incision wound. CT scan abdomen showed tube placement in the small bowel. Stable large right lower quadrant mass with a fluid level. December 21: ICU. No dialysis today. Patient started on trickle feeding through the J-tube yesterday. He started leaking around the J-tube site. Tube feeding was held. Dressings were placed. Wound VAC remains on the incision. Still having output through the RAYA drain. Patient remains on Precedex 0.4 mcg. FiO2 30 and a PEEP of 5. Sinus rhythm. at the bedside. December 22: ICU. Patient was seen this morning today by me. No dialysis today. Patient's and daughter at the bedside. FiO2 30 and a PEEP of 5. Sinus rhythm. Still having significant secretions through the tracheostomy tube. On Precedex 0.4 mcg. Getting D5W IV fluids. Tube feeding remains to be on hold since yesterday. Still output of RAYA drain. Awaiting input from surgery. Discussed with the and daughter. December 23: ICU. Saw the patient this afternoon. Because of good output of urine dialysis has been discontinued. Telemetry shows sinus rhythm. FiO2 30 and a PEEP of 5. RAYA output has been around 8200 cc an hour. Good urine output. Patient does have very slight movement of the limbs. Wound VAC is putting out about 20 cc per shift. Yesterday when trickle feeding was started patient's J- tube drainage also started leaking around the insertion site. Tube feeding was held. Patient remains on IV Zosyn and Precedex at 0.3 mcg. I had a very lengthy discussion with patient's daughter and at the bedside overall guarded prognosis. Later surgery spoke to the family, and then the nurse called me that family was wanting transferred to [facility]. I spoke to Dr. Irby. They felt they could not offer anything more at this point. I did call the [facility] transfer steamblaster. Gave them the reason for transfer. Later in the ICU nurse informed me through [employer] that [facility] had declined the transfer. Total time spent today about 50 minutes with over 30 minutes of discussion. December 24: ICU. Patient is doing not too well. Sinus rhythm. Drips include norepinephrine and IV propofol. Surgery did put 2 stitches around the J-tube insertion site. Started on TPN today. FiO2 30 PEEP of 5. Patient became hypothermic put on a Manjit hugger. Also hypoglycemic. Decreased urine output. IV fluids increased. Patient's son was at the bedside. I did speak to patient's eldest daughter outside in the waiting room. Did tell the patient doing very poorly. I did try to call the on the phone number she has gone home. Started an IV antifungal today. December 26, 2023 73-year-old white male with history of chronic abdominal pain for the last 8 months has been treated with Protonix 40 mg daily for the last 3 months with no improvement. Patient had a 22 pound weight loss in the last [address] of the abdomen and pelvis 3 weeks ago showed thickening of the antral wall with pathological adenopathy posterior to the stomach suspicious of neoplasm. Today the patient underwent elective upper endoscopy to evaluate further, patient received IV sedation by anesthesia endoscope was inserted into the mouth, esophagus was intubated without any difficulty there was evidence of large amount of liquid and solid food noted in the stomach suggestive of gastric outlet obstruction. Scope could not be advanced through the pylorus, however in the prepyloric area there was a large superficial ulceration identified with multiple biopsies were done from this area. The body cardia and fundus could not adequately visualize because of large amount of retained food in the stomach. Scope was withdrawn back to the stomach and upon careful examination the mucosa of the antrum body and cardia as well as the fundus appeared normal. Procedure was being performed and biopsies were done patient threw up and subsequently became hypoxic there was clearly evidence of witnessed aspiration anesthesia intubated the patient, procedure was terminated, and the patient was transferred to the ICU, this consult was initiated. Patient is now on assist- control rate of 20 tidal volume 500 FiO2 70% PEEP of 10 ABG is pending, earlier ABG showed profound hypoxia patient is on propofol at 50 mcg/kg/min, next ABG is pending. Chest x-ray showed chronic changes without evidence of acute pulmonary disease. 12/27/2023 Patient is seen and evaluated with family at bedside; remains in the ICU intubated and mechanically ventilated. - ABG showed a pO2 of 99 pCO2 31 pH of 7.44. -- Remains on Eraxis daptomycin and Zosyn patient is intermittently requiring Dilaudid, Ativan does not seem to help his agitation and restlessness. -- Continues to have leakage around the jejunostomy tube, and patient is undergoing the J-tube exchange today. Family is at bedside, seems to be quite anxious about his overall condition, and I explained to the that we are doing the best we can considering his critical illness situation and critical illness polyneuropathy. Patient is profoundly weak, and weaning the patient from mechanical ventilation is almost impossible. At least not at this point yet WBC count is 10.9 hemoglobin is 8.1 basic metabolic profile is normal BUN is 46 creatinine 1.90 patient has been off hemodialysis since the . Chest x- ray continues to show stable findings with right upper lobe opacity and right lower lobe opacity and possibly a small right-sided pleural effusion ----Continue ventilatory support, now on IMV mode rate of 16 with pressure support of 14 Continue Precedex and use Dilaudid 0.5 mg every 2-3 hours as needed. Nutritional support patient is now on TPN, Possible J-tube changed today for J- tube malfunction Continue antibiotics including daptomycin and Zosyn, Eraxis was added by infectious disease 12/28/2023 the patient is seen and evaluated in room at bedside; continues to be afebrile, the patient is on the ventilator through the trach FiO2 is currently stable at 30% no significant pleural effusion clinically patient on requiring any pressor support still having drainage around his jejunostomy tube patient dialysis catheter has been discontinued. Patient white count normalized to 7.6, creatinine is 1.51 patient with pneumonia with a sputum showing Citrobacter and Pseudomonas aeruginosa, the patient sputum repeat is still growing Citrobacter and Pseudomonas sensitive to the Pseudomonas is pending continue with Zosyn -patient did have a positive blood culture with staph epi that was oxacillin resistant as the patient did have a PICC line and the dialysis catheter he is on daptomycin repeat blood culture currently growing oxacillin sensitive staph epi, the patient dialysis catheter has been discontinued Has been sent for the culture -patient also have significant excoriation around his jejunostomy tube site which is still leaking Eraxis was added which will be continued as the patient fever pattern has improved and the patient white count has normalized once again discussed with the nursing staff to apply Triad cream which was discussed yesterday but not applied and monitor clinical course closely 12/29/2023 Patient is seen and evaluated with family members at bedside; remains intubated and mechanically ventilated -- ABG showed a pO2 of 105 pCO2 31 pH of 7.45. Remains on Precedex; multiple antibiotics and antifungal including Eraxis daptomycin and Zosyn. -- chest x-ray is showing improvement in his right upper lobe airspace disease/pulmonary abscess. Right lower lobe seems about the same with chronic opacity and possibly some small right-sided pleural effusion. --Family is at bedside, patient is arousable but does not follow any instructions. Gets extremely restless and agitated easily hence patient is receiving Dilaudid which seems to be working much better for this patient than benzodiazepines --possibly transfer the patient to a select care specialty. 12/30/2023 Evaluated in follow-up in the intensive care unit. He remains on the mechanical ventilator. Status post tracheostomy. There has been a decrease in the amount of leakage around the J-tube site he continues on a gravity flow. TPN is infusing tube feedings remain on hold at this time. No bowel movement reported for the last 5 days. X-ray today reveals extensive pleural parenchymal opacities throughout the right with at least a moderate pleural effusion. Mild patchy densities left mid and lower lung are also similar. Blood work reveals a white blood cell count 11.5, hemoglobin 8.1, platelet count of 78, sodium 142, potassium 4.2, BUN of 42, creatinine of 1.22, Phos of 2.3, magnesium 1.9. Patient continues on IV anidulafungin IV Zerbaxa IV daptomycin. Patient is currently sedated with propofol and also Precedex which is currently on hold at this time. December 31, 2023: ICU. Patient continues to do poorly. On propofol 35 mics. Also getting IV Dilaudid and IV Ativan.. Telemetry shows sinus rhythm. J-tube feeding has been discontinued. Significant output through the Abarca bag and around the G-tube site. Patient also putting out through the RAYA drain on the right side. Getting TPN and lipids. Patient is antimicrobial include iv aniedulefungin, IV ceftolozane/tazobactam, IV daptomycin Advance care planning [October 31, 2023] I met with patient's at the bedside. Went through in detail with patient is overall very poor clinical status. Chances of any meaningful recovery next to minimal. I also did mention that patient in my opinion was not stable to go to chronic ventilator setting. I suggested comfort care/hospice. I did not feel and why all honesty that patient is benefiting any further from the treatment we are giving him in fact causing probably more suffering. I also spoke to patient's daughter outside in the waiting room. Total time spent about 50 minutes with over 30 minutes of discussion. Later I called Dr. Luther JIMENEZ the clinical operations manager after he received a text that family was expressing that some physician expressed he was doing better and giving hope. I spoke to nurse Lemos in the evening and she and Dr. JIMENEZ did go and talk to patient's family at the bedside later. January 01, 2024: ICU. FiO2 30 and a PEEP of 5. Continues to have increased drainage at the G-tube site. Wound VAC in place over the incision. RAYA drain continues to put out excretions. Good urine output. Drips include IV propofol at 20 mics, also getting IV Ativan and Dilaudid. Patient also keeping getting TPN lipids. Spoke to the patient's at the bedside. No further questions. I did speak to Dr. Irby from general surgery. Hence it is both our impression again that changing the tube will not make any difference to the bigger picture. And probably futile. Dr. Irby will be speaking to the family today. David from social worker psychiatric did ask about of family meeting. I did reiterate that I spoken at length to the a few times and also the daughter. Dr. Jimenez also spoke to the and Dr. Irby will be speaking with the today. Prognosis remains to be very poor. I did tell the in my opinion probably the patient is not r a candidate for long-term facility. Will clinical operations manager Dr. Jimenez determine if the patient is a candidate for long-term chronic ventilator facility. January 02, 2024: ICU. FiO2 30 PEEP of 5. Telemetry sinus rhythm. Drips include propofol at 20 mics. Patient getting TPN lipids. Receiving 1 unit of packed red blood cell. Patient was having a breakdown around the tracheostomy stoma site. With a cuff leak. G-tube site is continues to have increasing output. Wound VAC in place. RAYA drains also having increasing output. Patient sister and daughter from [place] from out of town. Earlier they spoke at length with Dr. alford from general surgery. Prognosis remains poor. January 03, 2024: ICU. FiO2 30 PEEP of 5. On propofol. 50 mics. Getting TPN lipids. Sinus rhythm. Wound VAC in place. Drainage around the j-tube site. RAYA drain continues to drain. Patient somewhat sedated. at the bedside. Later social worker psychiatric David inform me that the surgical team Dr. Irby has suggested possible you have [facility], to which family is trying to obtain transferred to. Per Dr. Jimenez note patient has been decline by long-term care twice. Prognosis remains poor. at the bedside. Had no questions. Brother Nathan is present. January 04, 2024: ICU. FiO2 30 PEEP of 5. Propofol was held this morning. Getting TPN lipids. Sinus rhythm. Wound VAC remains in place. Continues to have drainage around the J-tube. RAYA drain continues to have output. at the bedside. She had no questions. Antibiotics in place. January 05, 2024: ICU. FiO2 30 PEEP of 5. Audibly sounding congested. Getting TPN lipids. Sinus rhythm. Wound VAC in place. Drainage around J-tube site. RAYA output continues. No family at bedside. Getting antibiotics. Lethargic January 06, 2024: ICU. FiO2 30 PEEP of 5. Patient is been off propofol since yesterday. Does move his head about. Try to open his eyes sometimes. Sinus rhythm. Blood pressure is running high yesterday. Started on Cleviprex. Hydralazine is being added. Continue to get TPN lipids. J-tube site remains excoriated. Wound VAC in place. RAYA output about 40 to 50 cc is a 12-hour shift. Patient elder daughter at the bedside. Eraxis was discontinued on January 02. Daptomycin is being discontinued by ID. Continue ceftolo'szone. CT abdomen pelvis done today: 3.1 cm organized fluid collection within the rectovesicular space concerning for abscess. No change in right upper lung 4.9 cm fluid collection with a fluid level. For possible pulmonary abscess. Moderate size right lung base multiloculated hydropneumothorax possibly abscess. Additional areas of air bronchograms. January 07, 2024: ICU. FiO2 30 PEEP of 5. Patient was taken down for pigtail drainage of the right lung abscess. About 200 cc of pus was obtained. Nurse informed me when they told him about for the procedure a lot of pus gushed out from the tracheostomy site. Dr. Love at the bedside did a bronchoscopy. Some pus was aspirated. No obvious fistula was noted. Patient is being back on Cleviprex drip. TPN lipids. January 08, 2024: ICU. Patient was having severe bouts of coughing. Unable to maintain ventilation. Patient was put on Nimbex drip and propofol drip. TPN lipids continue. Has a right chest wall pigtail catheter 90 cc output in 12- hour shift. Drainage from around the J-tube site. RAYA drain continues Ahmet to have an output. Abdominal wound is high since with the wound VAC in place. Patient sedated. January 09, 2024: ICU. Patient is off propofol and Cleviprex. Does open eyes. RAYA drain. About 40 cc last 24 hours. J-tube site continues to have increased output. Requiring dressing change every so often. Wound VAC in place. Patient getting Dilaudid and Ativan. Telemetry shows sinus rhythm. 40 cc out of the pigtail drainage. Patient started on ciprofloxacin and tobramycin. Remains on TPN and lipids. Patient's eldest daughter and at the bedside. No new questions. January 10, 2024: ICU. Overnight patient had become asynchronous. Had to be put on Precedex drip. Hemoglobin dropped down to 6.6. Monitor blood ordered. RAYA output about 100 cc last 24 hours. Wound VAC remains in place. TPN lipid continues. Patient also has a leak in the right pigtail catheter. Sinus rhythm. Continues to have increased secretion at the G-tube site. Ventilator FiO2 30 and a PEEP of 5. at the bedside. Had no further questions. January 11, 2024: ICU. Patient remains on IV Precedex. TPN.'s RAYA output over 30 cc last 24 hours. Wound VAC remains in place. Sinus rhythm. FiO2 30 PEEP of 5. Pigtail with very little output. Spoke to Dr. Love who only spoke to the patient's at length. Gnosis poor. When I walked in patient's 2 daughters and the present. is very tearful crying hugging the patient. The daughter had no further questions January 12, 2024 Ahmet: ICU. Continues on IV Precedex. Getting TPN lipids. Wound VAC in place. Sensitive. FiO2 30 and a PEEP of 5. Patient's at the bedside. Had no questions. January 13, 2024: ICU. FiO2 30 PEEP of 5. Remains on Precedex 0.8 mg. Eyes open. Sometimes does track with head. Not moving limbs. Some decrease in output from the G-tube site. Wound VAC putting out about 100 cc every 12 hours. RAYA drain about 100 cc every [address] Russ met with the family earlier today. Patient's been made DNR. Telemetry sinus rhythm. Patient's and daughter at bedside. They have no questions January 14, 2024: ICU. FiO2 30. PEEP of 5. Patient is has eyes open and tracking. Urine output about 100 cc an hour. NG site output looks like gastric contents. RAYA site about 50 cc in the last 12 hours. Telemetry sinus rhythm. and daughter have asked for hospice consultation for informational visit. They want to use [facility]. I sat with them and the nurse and a full expression of the hospice involved involved. Several questions answered. Daughter does express that she would like to take the patient home. The other sibling will be coming on from [place] on Saturday. They want to hold on at least until then. January 15, 2024: ICU. FiO2 30 and a PEEP of 5. Getting CPAP today. Asynchronous better. J-tube site continues to have increase secretions. Sinus rhythm. Awake. Does move his head possibly to command. Remains on Precedex. Getting Dilaudid. Fair urine output. Has a air leak in the pigtail. Minimal output through the chest tube. RAYA drain continues to have an output. at the bedside. January 16, 2024: ICU. On the ventilator FiO2 30 and a PEEP of 5. Pressure support mode. Wound VAC remains in place. J-tube site continues to have output. RAYA drain putting out output. Remains on pressors Precedex and getting Dilaudid. Antibiotics per ID. Patient being planned to go home tomorrow with home hospice. at the bedside. Had no further questions. Being followed by social worker psychiatric David and home hospice team from [facility] The plan for tomorrow currently is as follows: -Hospice arranging for transport with portable ventilator, to home with family -Antibiotics as discussed with ID will be discontinued -Wound VAC to be removed prior to discharge per surgery -RAYA drain to remain in place with dressing changes at the J-tube site. Dressing changes at the incision site per surgery. -TPN lipids will be discontinued prior to discharge -Patient to be taken off Precedex by r clinical operations manager January 21, 2024: ICU. Ventilator FiO2 30 and a PEEP of 5. Precedex drip. Sinus rhythm. Does wake up and follow commands. Weak in the limbs. Very little output through the RAYA drain. Wound VAC in place. Requiring Dilaudid for pain control close to every 2 hours. Over the weekend patient and family dec ided not for hospice. Patient is now full code instructions. Looking at long- term placement. Patient on tobramycin and ciprofloxacin and Diflucan per ID. Patient and daughter at the bedside.. Physical therapy in the room for passive movements. Family being educated. Since yesterday patient has been on pressure support./CPAP. Getting TPN lipids. January 22, 2024: ICU. Patient was on CPAP this morning. Plan was to take him to trach only this afternoon. Getting IV Precedex. Awake. Moves his head to command. Was able to move his right arm. Wound VAC remains in place. Right c hest tube/pigtail catheter in place. Some air leak. Minimal output from the right RAYA drain. Secretions persist through the left J-tube site. at the bedside. Spoke to the social worker psychiatric David. Looking into long-term placement. 01/23/24 Patient is evaluated in the ICU at the bedside. Feels anxious today, precedex is being weaned. He is awake alert. He is edematous. Abdominal wound vac in place. Right chest tube/pigtail in place. 55 ML of drainage overnight. Right sided RAYA drain. J tube in place. On TPN. He is pending approval for [facility] vs. [facility]. Blood work today reveals a sodium level of 131. Continues on IV Ciprofloxacin/ IV fluconazole. 01/24/2024 Patient remains in the intensive care unit as remains at the bedside. He was weaned off the Precedex today did receive a dose of Ativan this morning however his mood has much improved. Abdominal wound VAC in place with evidence of purulent drainage in the canister. He has had 15 mL of drainage overnight from the right sided chest tube. J-tube remains in place. He continues on TPN. He continues on IV ciprofloxacin and IV fluconazole with plans for repeat abdominal pelvis CT today by infectious disease and consider discontinuation of antibiotics afterwards. Sodium level today is 130. Still pending approval for discharge to LTAC versus [facility]. 01/25/2024 Patient remains in the intensive care unit he continues off IV Precedex at this time. Continues with TPN. Repeat chest abdomen pelvis CT completed yesterday which shows a decrease seen in the hydropneumothorax within the right lung base with drainage catheter there is no change in the bibasilar infiltrates and small left effusion. There is interval development of a dilated small bowel loop in the mid abdomen consistent with either a focal ileus or partial obstruction. There are findings suggestive of acute diverticulitis of the sigmoid colon with a small pericolic phlegmon abscess however is decreasing in the interval from compared in the prior study from 3.4 cm to 3 cm. There is moderate anasarca and the peritoneal dialysis catheter and small bowel drainage tube unchanged in position. Blood work today reveals a white blood cell count of 20.1, hemoglobin 8.3, sodium 131, BUN of 21, creatinine 0.66, magnesium 1.7. He is on IV Cipro. IV Flagyl was added today by infectious disease. Was made a full code at request of family. 01/26/2024 Patient remains in the ICU. More awake alert and oriented today. He continues on the trach collar. Sounds less congested. Continues on IV cipro and IV flagyl. White blood cell count better today at 16.3. Hgb 7.2. Sodium 130, potassium 3.4. Continues on TPN. 01/27/2024 Patient is seen in follow-up continues to be in the ICU with multiple consultations following. Family at the bedside and patient is more awake although continues with bronchial congestion and frequent suctioning with the trach collar. Patient remains off Precedex. Patient continues on antibiotics for possible lung abscess that was positive for Pseudomonas with a persistent air leak. Minimal output of the pigtail catheter noted. FiO2 is 40% trach collar maintained on 10 L oxygen. Patient continues on TPN and will adjust accordingly per dietary and pharmacy. Overall prognosis remains extremely poor. Patient remains full code. Per nursing staff patient was denied from [facility] with case management/social work following. 01/28/2024 Patient is eval in follow-up today in the intensive care unit. He had an axillary temp 101.6 for this reason a septic protocol was done including urinalysis blood cultures and viral panel. He remains on IV cipro and IV flagyl. Airleak to the chest tube remains to suction. He continues on a trach collar 40% FiO2 with oxygen at 8 L. He continues on TPN and lipids adjustments per dietary and pharmacy. We are currently not using the J-tube for feedings at this time. He has a wound VAC in place to the midline abdominal incision. He is more awake alert and oriented and less agitated. Sodium level today is 133. Renal function is within normal limits. 01/29/2024 Patient is evaluated today in the ICU with family at the bedside. He continues to have elevated temps. He is more lethargic. White count 20.2 today. Septic work up started. Repeat urinalysis not overly suggesting of infection. Viral panel negative. Chest xray today reveals patchy and confluent bilateral airspace disease similar to slightly worsened. Right-sided pleural catheter demonstrated. There is similar small right pleural effusion. He was started on IV vancomyin, IV meropenem and IV metronidazole. The cipro has been discontinued. Lactic acid 2.3. Sodium 134, renal function normal. Hgb 7.6. Tube feedings remain on hold. Not safe to restart and he continues on TPN/Lipids. 01/30/2024 Patient evaluated today in follow up. Remains in the ICU. Underwent bronchoscopy and repair of a tear in the tracheostomy cuff. Deep sputum culture pending. Patient remains on the mechanical ventilator with ABGs today showing pH level of 0.33, pCO2 of 59, pO2 of 152, HCO3 of 41, total CO2 of 33, hemoglobin 6.6. Lactic acid has normalized. White blood cell count 19.3 today hemoglobin 7.3. Patient is continued on IV propofol as well as backs. Continues on antibiotics in the form of IV vancomycin, IV meropenem, IV metronidazole. Continues on TPN lipids. Chest xray improved throughout both lung ramirez with mild improved aeration at the right lung base. No pneumothorax present. Right-sided chest tube remains in place to suction. 01/31/2024 Patient evaluated today in follow up in the intensive care unit. Remains on the mechanical ventilator, 50% FiO2. Family at the bedside and hoping for extubation today. Continues on TPN/Lipids. Labs today reveal white blood cell count 15.4, hgb 7.0, platelet count 169. Sodium 136, potassium 5.4. BUN 29, creatinine 0.61. Chest xray today reveals ongoing multifocal patchy and confluent airspace disease. A small to moderate right pleural effusion may be slightly increased. Sputum culture from bronchoscopy continues to show pseudomonas. Chest tube remains in place. on IV vancomycin and IV meropenem. 02/01/2024 Evaluated today in follow-up in the intensive care unit. Patient remains on mechanical ventilator with a 50% FiO2. His repeat sputum cultures from the bronchoscopy continue to show Pseudomonas. He continues on IV vancomycin and IV meropenem infectious diseases following closely. He continues with a wound VAC to his midline abdominal incision. Per surgery they feel that the fistula from his J-tube is mature he is currently off of tube feedings at this time though continues on TPN lipids. White blood cell count today is 15.3, hemoglobin 7.2, sodium 140, potassium 5.0, BUN of 33, creatinine 0.59. 2.0 mL of drainage over the last couple days. His chest x-ray today reveals no change in the marked diffuse cardiopulmonary process including scattered interstitial and partially consolidative infiltrates and bilateral pleural effusions which remain unchanged as compared to prior. 02/02/2024 Patient is evaluated today in follow-up in the intensive care unit. Patient remains in the mechanical ventilator with an FiO2 of 50%. His repeat sputum cultures are showing Pseudomonas now with drug resistance Pseudomonas is susceptible to amikacin and tobramycin with intermediate susceptibility to Zosyn and gentamicin. Antibiotics have been adjusted to Tobramycin and IV zosyn. February 03, 2024: I resumed care of the patient today. ICU. I was away last week. Patient had a tracheostomy leak. Underwent a bronchoscopy. And went back on the ventilator. Currently FiO2 5040% and a PEEP of 5. Drips include Precedex. Also getting TPN lipids. Patient getting Dilaudid 0.5 mg every 3 hours. And also Toradol. Good urine output. Right-sided RAYA drain was removed on January 27. Chest tube drain has minimal output. Patient continues to leak from the left-sided G-tube site. Patient's abdomen is rather distended. Surgery will be evaluating the patient today. Patient's and daughter at the bedside. That questions regarding the abdomen will defer the same to surgical team. Patient is extremely high risk for any surgery. Spoke to David the hospice case manager. As of now LTAC had declined the patient. Patient also has a stage III on the buttock. Patient has a Shiley #8 tracheostomy tube. Checks x- ray today shows extensive interstitial and patchy bilateral infiltrates. New prominent air density below the diaphragm no peritoneum was to be excluded. Patient's bronchoscopy results show multidrug-resistant Pseudomonas. Patient has been treated with Zosyn and tobramycin-currently getting both.. Patient is awake. Attempts to talk. Able to follow commands. February 04, 2024: ICU. and the daughter at the bedside. is rather tearful. Yesterday evening Dr. Irby from surgery said surgical intervention highly risky including poor outcome. Second opinion was obtained from Dr. Pompa this morning. Also recommended possible hospice. Dr. Russ from pulmonary also spoke to the family. Prognosis remains poor. CT scan abdomen yesterday during showed large pneumoperitoneum. NG tube to suction. On propofol. Patient sedated. Sinus rhythm. Right-sided chest tube remains in place. J-tube site to gravity drainage. Getting TPN lipids. I also suggested comfort measures. February 04: ICU. Saw the patient this morning. and assist at the bedside. Remains on propofol. IVs include TPN and liquids. Right chest tube remains in place. Left-sided J-tube to drainage to gravity. On the ventilator with FiO2 40 and a PEEP of 5. Lethargic but able to follow some commands. February 05: ICU. Patient remains on propofol. A bit lethargic. Does follow simple commands. Getting TPN lipids. Right chest tube in place. Left J-tube to drainage to gravity. On the ventilator FiO2 50%. I walked in the room Dr. Alford from surgery today. Talk to the family. Spoke to Dr. Russ, Dr. Jason Leonard all feel baby should be hospice comfort care. I did express this to the family including the and his daughter and sister at the bedside. They also had a patient's daughter on the phone. All the treatment seems to be futile. Will be extremely appropriate for the patient to be comfort cares measures. I have asked for a multidisciplinary meeting with the family tomorrow at [address] Montes, Dr. Russ, Dr. Alford and myself. Wound VAC in place. February 06: ICU. Patient was taken off propofol put on Precedex. Following commands. Getting TPN lipids. Right chest tube remains in place. Minimal output. Left-sided J-tube to drainage to gravity continues with output. Remains on the ventilator. Wound VAC. NG tube remains in place. FiO2 35 and PEEP of 5. Patient continues to get intermittent Lasix.Currently on IV tobramycin and IV Zosyn. Multiple disciplinary meeting was held at 11 AM in the ICU today. Meeting was requested by myself. People present in the room in the meeting included Dr. Alford from general surgery, Dr. Montes from ID, Dr. Russ from clinical operations manager, nurse Anitha, patient's , patient's eldest daughter, patient's brother and some other family members. Several questions were answered and all specialist gave the portion. Specifically: Dr. Montes from ID: No further change in antibiotic at present time. Per Dr. Alford: No surgical options patient extremely high risk from surgery and mood diabetes any benefit will be done. Per Dr. Russ: Will keep adjusting patient's vent settings in view of the tracheostomy. Patient just ask about taking the patient home with palliative care. Given patient's critical illness and the fact that this still wanted the patient to get better, sending her home is currently not an option in that case. February 07: ICU. Patient NG tube got pulled off. Had to be reinserted. Patient now on Precedex. Awake. Trying to speak. Patient's and daughter at the bedside. CT scan was ordered. states depending on the results they will decide about either to continued here or go home. Left J-tube remains dra maddox to gravity. Right chest tube remains in place. Wound VAC in place. TPN lipids continue. February 08: ICU. Awake. Following commands. On the ventilator. Sinus rhythm. Getting TPN lipids. Urine output fair. Wound VAC in place. Small output through the right-sided chest tube. J-tube to drainage remains. On Precedex. IV Patient's and daughter at the bedside. Wish to take patient home with palliative care with current medications. Pulmonary will coordinate with the home ventilator. Wound VAC and RAYA drainage per surgery. IV antibiotics per ID. Right chest tube to remain in place for hydropneumothorax. Chest x-ray had showed worsening infiltrates of the left side. Social work involved with the same. February 09: ICU. Awake following command. Remains on the ventilator. Sinus rhythm. Receiving TPN lipids. Good urine output. Wound VAC remains in place. J-tube output about 100 cc per 12-hour shift. Getting IV tobramycin IV Zosyn. Remains on Precedex 0.8 mcg. Right-sided chest tube remains in place for hydropneumothorax. VNA team is in there. They are unable to provide TPN lipids current ventilator settings and feel patient is too sick to be home. 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 Active Medications Albuterol/Ipratropium (Ipratropium-Albuterol 3 Ml Neb) 3 ml INHALATION RT-QID NIRMAL Last Admin: 02/10/24 11:33 Dose: 3 ml Albuterol/Ipratropium (Ipratropium-Albuterol 3 Ml Neb) 3 ml INHALATION RT-Q2H PRN PRN Reason: Shortness Of Breath Or Wheezing Last Admin: 02/02/24 04:31 Dose: 3 ml Benzocaine (Benzocaine Rydal 1 Can) 1 spray MUCOUS MEM TID PRN; Protocol PRN Reason: Mouth Irritation Bisacodyl (Bisacodyl 10 Mg Supp) 10 mg RECTAL DAILY [facility] Last Admin: 02/10/24 09:21 Dose: 10 mg Dextrose/Water (Dextrose 50% Syringe 50 Ml) 25 ml IVP PER PROTOCOL PRN; Protocol PRN Reason: Hypoglycemia Last Admin: 01/03/24 06:18 Dose: 25 ml Dextrose/Water (Dextrose 50% Syringe 50 Ml) 50 ml IVP PER PROTOCOL PRN; Pro tocol PRN Reason: Hypoglycemia Last Admin: 12/25/23 18:03 Dose: 50 ml Hydralazine HCl (Hydralazine Hcl 20 Mg/Ml 1 Ml Vial) 10 mg IVP Q6HR PRN PRN Reason: SBP >140 Last Admin: 02/03/24 13:10 Dose: 10 mg Hydromorphone HCl (Hydromorphone 0.5 Mg/0.5 Ml Syringe) 0.5 mg IVP Q3HR PRN PRN Reason: Pain Last Admin: 02/10/24 12:45 Dose: 0.5 mg Piperacillin Sod/Tazobactam (Sod 3.375 gm/ Sodium Chloride) 100 mls @ 25 mls/hr IVPB Q8HR [facility]; Protocol Last Admin: 02/10/24 09:26 Dose: 25 mls/hr Tobramycin Sulfate 200 mg/ (Sodium Chloride) 105 mls @ 105 mls/hr IVPB Q36H [facility] Last Admin: 02/10/24 12:01 Dose: Not Given Dexmedetomidine HCl 400 mcg/ (IV Solution) 100 mls @ 5.375 mls/hr IV .[id number] [facility]; Protocol Last Admin: 02/10/24 12:29 Dose: 0.8 mcg/kg/hr, 21.5 mls/hr Fat Emulsion Intravenous 250 (ml/ IV Solution) 250 mls @ 21 mls/hr IV TuSa [facility] Last Admin: 02/08/24 08:09 Dose: 21 mls/hr Sodium Acetate 50 meq/Magnesium Sulfate 1.5 gm/Potassium Phosphate 6 mmol/Sodium Chloride 72 meq/Calcium Gluconate 1.25 gm/Potassium Chloride 50 meq/Parenteral Vitamin Supplement 10 ml/ Zinc/Copper/Manganese/Selenium 1 ml/ Amino Acids/Dextrose 1,096.5 mls @ 65 mls/hr IV .BY DURATION [facility] Stop: 02/10/24 19:59 Last Admin: 02/10/24 05:46 Dose: 65 mls/hr Sodium Acetate 50 meq/Magnesium Sulfate 1.5 gm/Potassium Phosphate 6 mmol/Sodium Chloride 72 meq/Calcium Gluconate 1.25 gm/Potassium Chloride 50 meq/Amino Acids/Dextrose 1,085.5 mls @ 65 mls/hr IV .BY DURATION [facility] Stop: 02/10/24 19:59 Last Admin: 02/09/24 17:05 Dose: Not Given Acetaminophen 1,000 mg/ IV (Solution) 100 mls @ 400 mls/hr IVPB Q6H PRN PRN Reason: Fever Last Admin: 02/10/24 12:18 Dose: 400 mls/hr Sodium Acetate 50 meq/Magnesium Sulfate 1.5 gm/Potassium Phosphate 6 mmol/Sodium Chloride 72 meq/Calcium Gluconate 1.25 gm/Potassium Chloride 50 meq/Parenteral Vitamin Supplement 10 ml/ Zinc/Copper/Manganese/Selenium 1 ml/ Amino Acids/Dextrose 1,096.5 mls @ 78 mls/hr IV .BY DURATION [facility] Sodium Acetate 50 meq/Magnesium Sulfate 1.5 gm/Potassium Phosphate 6 mmol/Sodium Chloride 72 meq/Calcium Gluconate 1.25 gm/Potassium Chloride 50 meq/Amino Acids/Dextrose 1,085.5 mls @ 78 mls/hr IV .BY DURATION [facility] Insulin Aspart (Insulin Aspart (Novolog) 100 Unit/Ml Vial) 0 unit SQ 0000,0600,1200,1800 [facility]; Protocol Last Admin: 02/10/24 12:17 Dose: 2 unit Lidocaine HCl (Lidocaine 2% (Pf) 20 Mg/Ml 5 Ml Vial) 60 mg INHALATION Q6HR PRN PRN Reason: Dyspnea Last Admin: 02/09/24 19:47 Dose: 60 mg Lorazepam (Lorazepam 2 Mg/Ml Inj) 1 mg IV Q6HR PRN PRN Reason: Anxiety Last Admin: 02/09/24 20:45 Dose: 1 mg Miscellaneous Information (Phosphorus Replacement Protoco 1 Each Misc) 1 each MISCELLANE DAILY PRN; Protocol PRN Reason: Per Protocol Miscellaneous Information (Magnesium Replacement Protocol 1 Each Misc) 1 each MISCELLANE DAILY PRN; Protocol PRN Reason: Per Protocol Miscellaneous Information (Potassium Replacement Protocol 1 Each Misc) 1 each MISCELLANE DAILY PRN; Protocol PRN Reason: Per Protocol Multi-Ingred Cream/Lotion/Oil/Oint (Hydrophilic Cream 180 Gm Tube) 1 applic TOPICAL BID [facility]; Protocol Last Admin: 02/10/24 12:29 Dose: 1 applic Multi-Ingredient Ointment (Zinc Oxide 20% Oint 28.4 Gm Tube) 1 applic TOPICAL BID PRN; Protocol PRN Reason: Skin Irritation Naloxone HCl (Naloxone 0.4 Mg/Ml 1 Ml Vial) 0.2 mg IV Q2M PRN PRN Reason: Opioid Reversal Ondansetron HCl (Ondansetron 4 Mg/2 Ml Vial) 4 mg IVP Q6HR PRN PRN Reason: Nausea And Vomiting Last Admin: 01/23/24 17:28 Dose: 4 mg Pantoprazole Sodium (Pantoprazole 40 Mg/10 Ml Vial) 40 mg IVP BID NIRMAL Last Admin: 02/10/24 09:26 Dose: 40 mg Petrolatum (Zinc Oxide Paste (Z-Guard) 1 Applic) 1 applic TOPICAL BID [facility]; Protocol Last Admin: 02/09/24 21:07 Dose: 1 applic Past medical history to include: GERD Social history: . No smoking. Physical examination: VITAL SIGNS: 98.5, 93, 20, 156 per 89, 95% on the ventilator 40% GENERAL: Eyes open. Attempts to talk EYES: Pupils equal. , tracking Conjunctiva edouard l. HEENT: External appearance of nose and ears normal, tracheostomy-. NG tube to intermittent suction NECK: JVD unable to assess; masses not palpable. HEART: First and second heart sounds are normal; edema, present LUNGS: Respiratory rate increased, decreased breath sounds right chest wall pigtail catheter ABDOMEN: Soft, some tenderness. Liver spleen not palpable, no masses palpable..jejunostomy tube-dressing in place, . RAYA drain. Incision with stitches with - wound VAC PSYCH: Unable to assess NEURO: Does lift his right arm. Attempts to talk INVESTIGATIONS, reviewed in the clinical context: February 08: White count 19.5 hemoglobin 7.2 platelets 421 potassium 3[address] abdomen pelvis [February 07]: Results in chart February 07: White count 14.9 hemoglobin 7.5 platelets 368 potassium 4 BUN [address] abdomen pelvis [February 02] massive pneumoperitoneum with possibly right lower quadrant large bowel and/or small bowel perforation. Hyperemia and wall thickening of the cecum and ascending colon. Sputum [January 21] Pseudomonas aeruginosa-multiple drug-resistant February 02: White count 16.5 hemoglobin 8.6 platelets 385 sodium 142 potassium 3.1 BUN 37 creatinine 0.65 January 21: White count 14.9 hemoglobin 7.9 platelets 399 potassium 3.[address] abdomen pelvis [January 05]: 3.1 cm organized fluid collection within the rectovesicular space concerning for abscess. No change in right upper lung 4.9 cm fluid collection with a fluid level. For possible pulmonary abscess. Moderate size right lung base multiloculated hydropneumothorax possibly abscess. Additional areas of air bronchograms. January 05: White count 10.6 hemoglobin 7.6 platelets 111 sodium 137 potassium 3.5 BUN 44 creatinine 0.95 January 03: White count 13.4 hemoglobin 8.1 platelets 95 potassium 5.2 creatinine 1.1 albumin 1.8 Sputum culture [December 24] Citrobacter freundii, Pseudomonas aeruginosa Blood culture [December 24] Staphylococcus pettenkoferi December 24: White count 1.5 hemoglobin 8.2 platelets 106 potassium 3.8 BUN [address] chest abdomen without contrast [December 16] right upper lung cavitary lesion with air-fluid level in the posterior aspect and a larger cavitary lesion possibly within the lung parenchyma itself. Extending down towards the diaphragm additional airspace opacities in the left lung base. December 09: White count 26.1 hemoglobin 8.6 platelets 154 potassium 4.1 BUN 86 creatinine 3.31. Hemoglobin this morning was 6.6 prior to transfusion EEG-evidence of generalized cerebral dysfunction and sporadic intermittent higher amplitude sharply contoured waves mainly bifrontal. Showing cortical irritability. 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 Serosal fibrous adhesions. Viable margins. Sputum culture: [November 25]: Citrobacter freundii. Pseudomonas aeruginosa November 20: White count 14.4 hemoglobin 8.8 platelets 229 potassium 4.1 BUN [address] scan abdomen [November 19] possible small bowel obstruction Stool: C. difficile negative November 15: WBC 13 hemoglobin 7.7 platelets 248 potassium 4.3 creatinine 0.87 2D echo: EF 55 to 60%. Kidneys bladder: Unremarkable November 13: White count 12 hemoglobin 6.9 platelets 276 potassium 4.4 creatinine 1.21 magnesium 1.8 iron 6 TIBC 365% saturation 1.64 transferrin 261 ferritin 34.6 B12 569 folate 4.4 November 11: Creatinine 0.86 EGD: Large amount of retained solid liquid food noted in the stomach. Large superficial gastric antral ulceration involving most of the antrum extending into the pylorus causing pyloric stenosis. Biopsies were obtained. Chest x-ray film personally reviewed by me-scattered infiltrates Assessment plan: -Aspiration and gram-negative bacterial pneumonia a bilateral initially from retained gastric contents mostly food and liquids, causing acute hypoxic respiratory failure: On presentation:: Current x-ray showed some worsening of the left side. Subsequent bacterial pneumonia and lung abscess sputum culture November 25: Citrobacter freundii, Pseudomonas aeruginosa. December 13: Klebsiella oxytoca, Pseudomonas aeruginosa. December 29: Multidrug-resistant Pseudomonas aeruginosa IV meropenem-, IV Zosyn.IV ceftolozane/tazobactam, IV daptomycin, tobramycin- all discontinued Currently getting IV Zosyn and tobramycin -Large pneumoperitoneum likely from perforation. Has been told by Dr. Peñaloza and Dr. Pompa from surgery/[second opinion]. Extremely high risk for any surgery. Very poor outcome. -Right-sided hydropneumothorax with no improvement Pigtail catheter in place -Intermittent asynchronous with the ventilator. -January 28 patient underwent tracheostomy tube exchange and bronchoscopy with lavage by Dr. Love for a leak around the tracheostomy tube. Patient is a #8 Shiley tracheostomy tube. An air leak was resolved Previously had a leak. Currently resolved -Pain, multifactorial Getting Dilaudid as needed with Toradol -Sepsis with septicemia from above Patient received multiple antibiotics -Right l lung abscess, pigtail catheter placed January 07, 2024.: Slow to respond Initially about 200 cc of pus obtained. During the procedure large amount of pus poured out of the tracheostomy site when patient was rolled on the left side. Status post bronchoscopy with some lavage on 01/07/2024 - lung abscess larger 1 on the right side-patient cultures are growing Pseudomonas and Klebsiella oxytoca: , Received other antibiotics. Currently on Zosyn and tobramycin -Acute pulmonary edema and fluid overload from hypoalbuminemic state and fluids from IV.:: Has been getting Lasix and dialysis: Both held -Altered mentation. Possibly encephalopathy. Could be delirium.: Improvement CT brain [December 06] nothing acute Neurology following EEG-evidence of generalized cerebral dysfunction and sporadic intermittent higher amplitude sharply contoured waves mainly bifrontal. Showing cortical irritability. Keppra was started on December 07 -Critical care poly- Pedro neuropathy: Slow to respond PT OT -Gallstones, asymptomatic -Small l bowel perforation at site of jejunostomy tube tip with balloon..: Portion of small bowel resected. On November 24. New J-tube was placed.- drainage to gravity:-Now discontinued December 19: J-tube blocked. J-tube replaced on December 20 over wire December 21: Leaking around the J-tube site. Feeding held December 23: J feeding was started yesterday evening but again started leaking increasingly around the J-tube site-feeding held again December 24: J-tube feeding has been held. Patient is currently having increased drainage from the J-tube site -Acute kidney injury. Possible ATN from hypotensive shock: Resolved Renal ultrasound unremarkable. Started on renal replacement therapy on November 28. Last hemodialysis on December 17. Being followed by an nephrology. Good urine output. -Nutrition Jejunostomy tube placed November [address] Ewing Received TPN-this was discontinued. TPN lipids restarted on December 24 -Midline abdominal incision wound dehiscence Wound VAC in place -Acute recurrent atrial fibrillation-converted to sinus rhythm Received IV amiodarone. Cardiology following -Acute hypoxic respiratory failure from aspiration pneumonia, status post ventilator assisted: Reintubated November 25. FiO2 35 PEEP of 5 Tracheostomy tube-by Dr. Zepeda on December 09 Tracheostomy tube changed to #8 Shiley on January [address] Love -Septic shock, recovered -Hypertension, recurrent Had received Cleviprex. Hydralazine added -Intermittent hypotension: Corrected Intermittent use of Levophed. 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 Also anemia of blood draw. Iron deficiency anemia Received total of 8 units of blood IV iron. -Severe thrombocytopenia. Would consider coagulation disorder secondary to infection., In the setting of underlying lymphoma.: Fluctuating with infection: Improved Hematology following. 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 difficile ruled out. -Large superficial gastric antral ulceration involving the gastric antrum extending into the pylorus with gastric outlet obstruction. 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 -DNR made on January 12. Now full code with instructions on January 17. Patient is full code now wants to take the patient home with current settings with palliative care. As per VNA not possible with the current settings patient is requirements too high for the same. Further discussions between the family and home care in place. Past Medical History Past Medical History: GERD/Reflux History of Any Multi-Drug Resistant Organisms: None Reported Past Surgical History: Heart Catheterization Additional Past Surgical History / Comment(s): colonsocopy,spinal injection, Past Anesthesia/Blood Transfusion Reactions: No Reported Reaction Past Psychological History: No Psychological Hx Reported Smoking Status: Never smoker Past Alcohol Use History: None Reported Past Drug Use History: None Reported
[2024-02-10 14:57] VITALS: BMI 32.3
--- NOTE | 2024-02-10 21:57 | P.PN ---
Progress Note - Text Progress Note Date: 02/10/24 Ethics Consultation Note Members present: 1. Vahe Melendez MD 2. Miguel Ackerman MD 3. Esperanza Betancourt, coverstitch elastic attacher 4. Tino Hoyos, Patient Advocacy Services Discussion: The ethics committee met today to discuss the case of Mr. Lawton. Mr. Lawton has been hospitalized with us for 90 days and ethics consultation was requested to discuss recommendations regarding patient's surrogate decision making which appears to be in conflict with patient's best interest. As a background, Mr. Lawton has metastatic cancer secondary non-Hodgkin's lymphoma, complicated by prolonged hospitalization resulting in multiple other medical comorbidities, list which includes: Acute hypoxemic respiratory failure requiring tracheostomy and J-tube, small bowel perforation with pneumoperitoneum now requiring TPN, critical illness polyneuropathy, septic shock, kidney dysfunction. At present, patient's surrogate decision maker is his , who has maintained that patient's wishes both previously stated and presently stated are that he is to continue with all available medical treatment options. In discussion with medical team, given patient's critical illness, it appears that care is medically futile per the medical opinion of multiple specialists as well as primary care physician. Accordingly, recommendations were made to the family regarding hospice care and comfort measures, for which this committee understands that the family briefly acquiesced. However, shortly after this, patient himself relayed his wish to continue to diaz ongoing medical treatment despite medical futility. Therefore, this committee considered the question of whether patient's autonomy was being fairly represented via substituted judgment by his family. Secondarily, there was a discussion about best interest standard as it relates to the conclusion of patient's medical team regarding patient's clinical status. Conclusions: This committee did review ethical literature regarding this question, and concluded in our discussion that substituted judgment is still the standard by which medical decisions should be made in cases where it is clear that the values and views of the decision-maker is in line with the incapacitated patient's previously stated values and views on end-of-life treatment. While this approach has undoubtedly significant limitations, the alternative use of best interest standard would be harmful to patient's autonomy. This committee discussed the possibility of the creation of institutional level best interest standard policies, however, this is outside of the scope of this committee. Final recommendations: 1. We agree with and commend the ongoing nathalie discussions that patient's medical team is having with the patient's family regarding realistic expectations about prognosis, and encourage these discussions to continue. 2. Regarding family's request to take patient home, this committee feels that it would be respectful of patient's autonomy to be discharged home per their wishes in the situation in which patient's only needs are primarily nursing only , such as bed turns, catheter care, wound care, etc. If this type of discharge is considered, every effort should be made to educate the patient's family members on how to do the appropriate nursing care to take care of their family member, they should be provided education on the high likelihood of readmission or mortality at home, and they should be provided every available home health care option that would be helpful to mitigate some of the care burden of taking care of this patient at home.
[2024-02-10 23:58] LABS: Glucose,Whole Blood 154 mg/dL (70-110)
[2024-02-11] MEDS: [UNRECOGNIZED DRUG - OTHER] IV SCH
[2024-02-11 06:04] LABS: Glucose,Whole Blood 222 mg/dL (70-110)
[2024-02-11 06:19] LABS: Anisocytosis Slight; Basophils % (A) 0 %; Eosinophils # (A) 0.2 k/uL (0-0.7); Eosinophils % (A) 2 %; Hypochromasia Marked; Lymphocytes # (A) 2.6 k/uL (1.0-4.8); Lymphocytes % (A) 19 %; MCH 30.7 pg (25.0-35.0); MCHC 30.8 g/dL (31.0-37.0); MCV 99.5 fL (80.0-100.0); Macrocytosis Slight; Mean Platelet Volume 8.3; Monocytes # (A) 0.5 k/uL (0-1.0); Monocytes % (A) 4 %; Neutrophils # (A) 9.9 k/uL (1.3-7.7); Neutrophils % (A) 74 %; Platelet Count 390 k/uL (150-450); RBC 2.21 m/uL (4.30-5.90); RDW 16.2 % (11.5-15.5); WBC 13.5 k/uL (3.8-10.6)
[2024-02-11 06:25] LABS: African American GFR (CKD) >90 (>60 ml/min/1.73 sqM); Anion Gap 5 mmol/L; Blood Urea Nitrogen 25 mg/dL (9-20); Calcium 7.9 mg/dL (8.4-10.2); Carbon Dioxide 22 mmol/L (22-30); Chloride 118 mmol/L (98-107); Glucose 205 mg/dL (74-99); Non-African American GFR(CKD) >90 (>60 ml/min/1.73 sqM); Potassium 4.2 mmol/L (3.5-5.1); Sodium 145 mmol/L (137-145)
[2024-02-11 06:44] LABS: HGB 6.8 gm/dL (13.0-17.5)
--- NOTE | 2024-02-11 08:35 | P.PN ---
Subjective Progress Note Date: 02/10/24 Principal diagnosis: Reason for follow-up is pneumonia and diverticulitis Patient is 73-year-old with male initial presentation to the hospital on 11/12/2023 after the patient did have aspiration while undergoing elective endoscopy, diagnosed with a non-Hodgkin lymphoma subsequently did have exploratory laparotomy for perforated small bowel, abdominal washout and feeding jejunostomy tube patient did require dialysis catheter placement for dialysis during this hospital stay which was subsequently discontinued, and tracheostomy for respiratory failure. On today's evaluation that is 02/10/2024, patient did have resolution of his fever has been afebrile this morning, patient is on the ventilator through the trach FiO2 stable at 40% on requiring pressor support no vomiting or diarrhea has been reported. Patient family has refused tobramycin trough level this morning Objective - Vital Signs Vital signs: Vital Signs Temp 98.3 F 02/10/24 08:00 Pulse 85 02/10/24 10:00 Resp 22 02/10/24 10:00 BP 142/93 02/10/24 07:00 Pulse Ox 93 L 02/10/24 10:00 FiO2 40 02/10/24 08:00 Intake & Output 02/09/24 02/10/24 02/10/24 18:59 06:59 18:59 Intake Total 2434.5 2435.613 367 Output Total 1170 1145 375 Balance 1264.5 1290.613 -8 Weight 108.3 kg Intake: IV 173 253 302 0.9 Normal Saline @ KVO 140 220 95 Normal Saline Pressure 33 33 12 Saline TPN 195 Intake, IV Titration 1546.5 1402.613 Amount ACETAMINOPHEN IV (For NPO 100 ) 1,000 mg In Empty Bag 1 bag @ 400 mls/hr IVPB Q6H PRN Rx#:[id number] Dexmedetomidine/0.9% NaCl 200 281.113 (Pmx) 400 mcg In Empty Bag 1 bag @ 0.2 MCG/KG/HR 5.375 mls/hr IV .[id number] [facility] Rx#:[id number] Piperacillin-Tazobactam 3 150 25 .375 gm In Sodium Chloride 0.9% 100 ml @ 25 mls/hr IVPB Q8HR [facility] Rx# :[id number] Sodium Acetate 50 meq 1096.5 1096.5 Magnesium Sulfate gm 1.5 gm Potassium Phosphate 6 mmol Sodium Chloride 4Meq /ml Vial 72 meq Calcium Gluconate 1.25 gm Potassium Chloride 50 meq Mvi, Adult No.4 with Vit K 10 ml Trace (Conc-1Ml/ Dose) 1 ml In Amino Acids 5 %/Dextrose 20 % 1,000 ml @ 65 mls/hr IV .BY DURATION [facility] Rx#: [id number] TPN/PPN 715 780 65 TPN 715 780 65 Output: Chest Tube Drainage 0 0 0 Chest Tube Right 0 0 0 Gastric Drainage 50 Drainage 310 Left Abdomen 250 Medial Abdomen 60 Urine 810 1145 375 Other: Voiding Method Indwelling Catheter Indwelling Catheter ABP, PAP, CO, CI - Last Documented Arterial Blood Pressure 176/162 - Exam GENERAL DESCRIPTION: An elderly male intubated with trach RESPIRATORY SYSTEM: Unlabored breathing , coarse breath sounds anteriorly HEART: S1 S2 regular rate and rhythm , ABDOMEN: Soft , abdominal distention and tenderness EXTREMITIES: No edema feet - Labs CBC & Chem 7: 02/11/24 06:03 02/11/24 06:03 Labs: Abnormal Lab Results - Last 24 Hours (Table) 02/09/24 02/09/24 02/09/24 Range/Units 12:25 18:10 23:28 POC Glucose (mg/dL) 155 H 191 H 150 H (70-110) mg/dL 02/10/24 Range/Units 06:29 POC Glucose (mg/dL) 173 H (70-110) mg/dL Assessment and Plan (1) Sepsis Current Visit: Yes Status: Acute Code(s): A41.9 - SEPSIS, UNSPECIFIED ORGANISM SNOMED Code(s): 22550259 (2) Pneumonia Current Visit: Yes Status: Acute Code(s): J18.9 - PNEUMONIA, UNSPECIFIED ORGANISM SNOMED Code(s): 111020673 (3) Bacteremia Current Visit: Yes Status: Acute Code(s): R78.81 - BACTEREMIA SNOMED Code(s): 3177377 (4) Peritonitis Current Visit: Yes Status: Acute Code(s): K65.9 - PERITONITIS, UNSPECIFIED SNOMED Code(s): 42529224 Plan: 1 the patient did have a new fever also noticed to have worsening of his respiratory status concerning for pneumonia 2repeat blood culture have been negative sputum culture from 1127 is growing drug-resistant Pseudomonas aeruginosa sensitive only to tobramycin amikacin in termediate sensitive to Zosyn patient also have a bronchoscopy on 112 that specimen is growing Pseudomonas with multidrug resistant pattern and intermediate to Zosyn sensitive to amikacin and tobramycin 3patient did have CT abdominal pelvis with evidence of large pneumoperitoneum concerning for possible large/small bowel perforation patient has been evaluated by Dr. subramanian for a second opinion from surgical standpoint and has been considered high risk for any surgical intervention, patient repeat CT abdominal pelvis did not show any improvement 4patient did have a new fever and also noted to have worsening of the white count blood cultures will be obtained from the PICC line peripherally and if any further fever or further worsening of the white count will need to add gram- positive coverage 5patient family has refused lab draw this morning including tobramycin trough as the tobramycin cannot be dosed appropriately will recommend to hold the tobramycin May continue with the Zosyn with the patient family decided to take the patient home on hospice Saturday treatment is considered to be mostly palliative comfort related at this point discussed in detail with the and the daughter multiple question answered again Dictation was produced using [employer] dictation software. please excuse any grammatical, word or spelling errors.
[2024-02-11] MEDS: HALOPERIDOL LACTATE 5 MG/ML 1 ML VIAL IVP PRN (09:14)
[2024-02-11] MEDS: HYDROmorphone 1 MG/ML 1 ML SYRINGE IVP PRN (10:03)
[2024-02-11 10:41] LABS: Anisocytosis Slight; Hypochromasia Marked; MCH 31.3 pg (25.0-35.0); MCHC 31.8 g/dL (31.0-37.0); MCV 98.4 fL (80.0-100.0); Macrocytosis Slight; Mean Platelet Volume 8.3; Platelet Count 460 k/uL (150-450); RBC 2.24 m/uL (4.30-5.90); RDW 16.1 % (11.5-15.5); WBC 17.2 k/uL (3.8-10.6)
--- NOTE | 2024-02-11 11:38 | P.PN ---
Subjective Progress Note Date: 02/11/24 Principal diagnosis: Abdominal pain. This is a 73-year-old white male with history of chronic abdominal pain for the last 8 months has been treated with Protonix 40 mg daily for the last 3 months with no improvement. Patient had a 22 pound weight loss in the last [address] of the abdomen and pelvis 3 weeks ago showed thickening of the antral wall with pathological adenopathy posterior to the stomach suspicious of neoplasm. Today the patient underwent elective upper endoscopy to evaluate further, patient received IV sedation by anesthesia endoscope was inserted into the mouth, esophagus was intubated without any difficulty there was evidence of large amount of liquid and solid food noted in the stomach suggestive of gastric outlet obstruction. Scope could not be advanced through the pylorus, however in the prepyloric area there was a large superficial ulceration identified with multiple biopsies were done from this area. The body cardia and fundus could not adequately visualize because of large amount of retained food in the stomach. Scope was withdrawn back to the stomach and upon careful examination the mucosa of the antrum body and cardia as well as the fundus appeared normal. Procedure was being performed and biopsies were done patient threw up and subsequently became hypoxic there was clearly evidence of witnessed aspiration anesthesia intubated the patient, procedure was terminated, and the patient was transferred to the ICU, this consult was initiated. Patient is now on assist- control rate of 20 tidal volume 500 FiO2 70% PEEP of 10 ABG is pending, earlier ABG showed profound hypoxia patient is on propofol at 50 mcg/kg/min, next ABG is pending. Chest x-ray showed chronic changes without evidence of acute pulmonary disease. Patient was seen and examined today on 11/13/2023, remains in the ICU, intubated mechanically ventilated, on assist-control rate of 20 tidal volume 500 FiO2 50% and PEEP of 10 ABG showed a pO2 of 143 pCO2 47 pH of 7.28 hence PEEP was cut down to 6, and increased rate to 22. Patient is still requiring IV fluid at 100 cc/h/LR. Requiring norepinephrine at 0.08 mcg/kg/min he is also on propofol at 50 mg/kg/min antibiotics arce patient is receiving Zosyn. Chest x-ray is showing worsening infiltrates specially in the left lung. This could be related to aspiration pneumonia. Patient had witnessed aspiration during endoscopy/upper endoscopy.WBC count is 14 hemoglobin 7.6 basic metabolic profile is normal BUN is 26 creatinine 1.57 obviously the patient sustained some acute kidney injury baseline creatinine 0.86 patient had received fluids over the last 24 hours, remains on fluids at 100 cc/h Patient with seen and examined today on 11/14/2023, patient remains in the ICU, intubated and mechanically ventilated. Failed weaning trial yesterday and he became quite agitated and desaturated once he went off propofol. Had to be placed back on assist-control mode of mechanical ventilation and sedation. Today the patient is on assist-control rate of 22 tidal volume 500 FiO2 50% PEEP of 6. ABG showed a pO2 of 123 pCO2 51 pH of 7.32, and I cut down his FiO2 down to 45%, patient is receiving a unit of packed RBCs for hemoglobin of 6.9 today. Patient had an episode of A-fib RVR at 3 AM in the morning, seen by cardiology, and recommended patient goes on amiodarone. Still requiring norepinephrine at 0.05 mg/kg/min, he is on LR at 100 cc/h propofol at 50 mg/kg/min. Remains empirically on Zosyn for aspiration pneumonia. My plan today is transitioning the patient to Precedex, hopefully discontinue propofol, and at least give the patient a decent weaning trial or at least check weaning parameters before we proceed to weaning trial. Chest x-ray continues to show evidence of pneumonia mostly in the left lung and left lower lobe more specifically. Some pulmonary vascular congestion is noted with interstitial edema, small pleural effusion is also noted/left side. WBC count today is 12 hemoglobin 6.9 basic metabolic profile is normal bicarb is 25, BUN is 25 creatinine is improving down to 1.21 from 1.57 yesterday Patient was evaluated today on 11/15/2023, patient remains in the ICU, he was extubated yesterday, and his extubation was relatively uneventful. However the patient continues to have nasogastric tube in place, his pathology report came back showing non-Hodgkin's lymphoma, patient has gastric outlet obstruction, and the recommendation by GI is to consult surgery for a jejunostomy tube which is appropriate. Patient will be seen today by oncology and [facility] In the meantime patient is comfortable, he is on 5 L nasal cannula he has LR running at 100 cc/h, he is remains on Zosyn for aspiration pneumonia remains on amiodarone which was started by cardiology for atrial fibrillation with RVR, presently in sinus rhythm. Cannot switch him to oral because of the fact that remains n.p.o., patient remains on TPN. WBC count is 10.7 hemoglobin 7.5 electrolytes are normal renal profile is normal, creatinine normalized to 0.96 Patient was evaluated today on 11/16/2023, remains in the ICU, on 5 L nasal cannula remains on amiodarone at 0.5 mg/min remains on LR at 100 cc/h, however his chest x-ray is showing some component of interstitial edema or could be findings related to his recent episode of aspiration/aspiration pneumonia, nonetheless the patient seems to be a bit symptomatic, he has intermittent cough and wheezing, I am recommending Lasix 40 mg IV push, cut down his IV fluid to 50 cc/h, continue Zosyn, patient will be placed on DuoNeb updrafts and on Solu- Medrol. Patient is scheduled to have jejunostomy-tube placement today. WBC count is 13 hemoglobin 7.7 basic metabolic profile is normal and renal profile is normal Patient was evaluated today on 11/17/2023, patient underwent uneventful placement of a jejunostomy tube yesterday, in the ICU on 5 L, patient is relatively stable, not in any distress, patient continues to have nasogastric tube in place although he did have a J-tube placed yesterday. Patient was seen by oncology for his non-Hodgkin's lymphoma involving the gastric outlet. Today's x-ray showed evidence of pneumonia/bilateral interstitial infiltrate/edema patient was given a dose of Lasix, I reminded the patient had an aspiration episode which was significant. And he required intubation mechanical ventilation for a few days.WBC count today is 9.1 hemoglobin 7.9 electrolytes are normal renal profile is normal hence I plan to transfer the patient out of the ICU to a cardiac floor. And hopefully discharge planning in the next 2 days for The patient was seen today November 18, 2023 in follow-up in the intensive care unit. He is currently sitting up in bed. Awake and alert in no acute distress. He is maintaining O2 saturations in the 90s on 5 L/min per nasal cannula. Glucose 177. Remains on DuoNeb inhalations and Solu-Medrol. Antibiotics in the form of Zosyn. He has a J-tube in place. He was initiated on vital AF 1.2 at 10 mL an hour with a goal of 82 mL/h The patient is seen today November 19, 2023 in follow-up in the intensive care unit. He is a regular medical floor overflow patient. He is currently sitting up in a chair. Awake and alert in no acute distress. He is maintaining O2 saturations in the 90s on 5 L/min per nasal cannula. No IV fluids. He denies any worsening shortness of breath, cough or congestion. He is having some issues with diarrhea. He remains on Zosyn. He is receiving vital AF at 55 mL/h with a goal of 82 mL/h. Glucose 161. Solu-Medrol, DuoNeb inhalations. The patient is seen today November 20, 2023 in follow-up on the regular medical floor. He is currently up in a chair at the bedside. Awake and alert in no acute distress. Denies any worsening shortness of breath, cough or congestion. He is maintaining O2 saturation in the 90s on 3 L/min per nasal cannula. He continues on Zosyn. Continues on bronchodilators and steroids. White count 12.3. Hemoglobin 9.0. Platelets 258. Glucose 168. He is not tolerating his tube feeds as he has developed diarrhea. C. difficile screen was negative. Abdominal series revealed cardiomegaly with left basilar acute infiltrate and/or atelectasis. Overall nonspecific bowel gas pattern. A small bowel obstruction needs to be considered. Progress note dated November 21, 2023. The patient is seen in room 517. The patient is currently on 3 L of oxygen. He continues on Zosyn. His biggest complaint has been abdominal discomfort and diarrhea. He did have a CT scan of the abdomen and pelvis. Current laboratory data includes a white count of 14.4, hemoglobin 8.8, hematocrit 28.7, and platelet count 229,000. Sodium 139, potassium 4.1, chlorides 103, CO2 30, BUN 42, creatinine 0.94. Glucose is 158. Calcium is 8.5. Progress note dated November 22, 2023. 73-year-old male seen in room 517. He currently is on 2 L of oxygen. Room air saturation was 89%. Chest CT shows bilateral patchy infiltrates. He continues on Zosyn. He is still not taking anything by mouth. No new laboratory data today other than a glucose of 138. Gram stain was negative. Progress note dated November 23, 2023. 73-year-old male seen in room 517. He is resting comfortably without com plaints. He continues on saline at 10 cc an hour, tube feedings with Pivot at 20 cc an hour, Zosyn, and 2 L by nasal cannula. He has had an uneventful night. Laboratory data today includes a white count 14.5, hemoglobin 9.7, hematocrit 31.4, and a platelet count of 242,000. Sodium 138, potassium 3.7, chlorides 106, CO2 26, BUN 39, creatinine 0.95. Glucose is 181. Calcium is 8.5. Sputum sampling was negative. Progress note dated November 24, 2023. 73-year-old male who is seen in room 517. The patient has been having significant abdominal discomfort, and went for a evaluation, ordered by surgery today, to determine whether or not the feeding tube, was in proper position, and whether or not there is anything acutely going on in the abdomen. He had been having diarrhea. He is on 3 L of oxygen. He has been here for 12 days. This is a patient, that had a prior EGD, aspirated, because of gastric outlet obstruction, and was diagnosis of non-Hodgkin's lymphoma. He is currently on Zosyn, DuoNebs, and Solu-Medrol. He has been NPO. Chest x-ray showed a left lower lobe infiltrate. Abdominal x-ray showed multiple air-fluid levels. CT of the abdomen showed multiple dilated small bowel loops, consistent with obstruction, pneumoperitoneum, ascites, and cholelithiasis. White count was 14.1, hemoglobin 8.9, hematocrit 29.5, and platelet count was 255,000. Glucose was 143. 11/25/2023, the patient is being seen in the intensive care unit. The patient is critically ill, n.p.o., he has an NG tube in place. Following the NG tube insertion, there was a total of 2.0 L of output and the patient's J-tube was also draining approximately 200 cc over the past 8 hours. Continues to have abdominal pain which is rather diffuse and the patient has direct abdominal tenderness. CAT scan of the abdomen was noted and was consistent with small bowel obstruction. The patient has a stomach that was inflated and in the same time there were multiple loops of small bowel distended with fluid. This extended to the pelvis. J-tube with contrast nondilated small bowel loops within the mid abdomen. Additional loops of small bowel were seen that was dilated. There was some contrast in the right lower quadrant and contrast was also in the cecum. No transition point was identified. The dilated loops of the bowel appeared to be in the proximal jejunum and distal to the duodenum. General surgery is on the case the patient will be taken to the operating room for another exploratory laparotomy. Noted the CAT scan of the abdomen also showed pneumoperitoneum and small amount of ascites and cholelithiasis. Hemodynamically, the patient is currently on normal saline at rate of 75 cc an hour. He is hypotensive and is going to be started on pressors. He is on 4 L of oxygen by nasal cannula. He also has sustained acute kidney injury. Blood work from today shows a rise in the creatinine which is currently up to 2.5 with a BUN of 57. Serum bicarb is at 14 with an anion gap of 11. The patient WBC count is at 8.2 with a hemoglobin of 12.3 and a platelet count of 188. Chest x- ray from this morning is showing a right-sided port and a stable left lung airspace disease and an NG tube being in place. The patient remains on IV Zosyn. The patient is receiving Dilaudid for pain control. The patient remains on IV Solu-Medrol 60 mg every 6 hours. It was noted that the patient's surgical wound over the port has dehisced and there is some serous drainage and erythema at the incision site. Awake and alert and communicating. Family at the bedside. No apparent signs of respiratory distress at this point. 11/26/2023, the patient is being seen in follow-up. Events from yesterday was noted and the patient was taken to the operating room for exploratory laparotomy. The patient was found to have large amount of free fluid noted in the abdomen and there was significant contamination. There was perforation of the small bowel with the balloon of the previously inserted jejunostomy tube penetrating through the perforation. As such, the tube was removed, abdominal washout was done. Small bowel resection was done and the patient had a nodular jejunostomy tube inserted. Postop, the patient was extubated he was unable to tolerate extubation and the patient was kept intubated on mechanical ventilator and he was brought back to the intensive care unit. He is currently postop day #1 following his small bowel resection. Abdominal surgical wound site is dry c lean and intact. This morning, the patient remains sedated on propofol which is currently running at 35 mcg/kg/min. He is on assist-control mode of mechanical ventilation at rate of 28, tidal volume of 550, FiO2 of 60% with a PEEP of 5. Blood gas from today shows a pH of 7.35 with a pCO2 44 and pO2 of 88. Chest x- ray shows adequate positioning of the orotracheal tube. The patient has a Mediport on the right and a subclavian triple-lumen catheter on the left and the patient has persistent bilateral pleural effusion and infiltrates in lung base bilaterally. Hemodynamically, the patient remains in shock. He has been on high-dose norepinephrine which is currently running at 0.28 mcg/kg/min and the patient is also on vasopressin at 0.03 units an hour. He is IV fluids are in the form of bicarb infusion running at rate of 150 cc an hour. He is in sinus tachycardia. NG tube output has been 250 cc over the past 8 hours and the output from the J-tube is minimal at this point in time. Urine output is quite diminished as the patient has also sustained acute kidney injury. Overall fluid balance is +4.9 L over the past 24 hours. The patient's white cell count of 5.7 with a hemoglobin 9.9 and platelet count of 172. BUN is 72 with a creatinine of 2.8 and sodium levels at 143. The calcium level is at 6.5. LFTs are normal. Triglyceride level is at 315. On 11/27/2023, the patient remains critically ill. Remains intubated and on mechanical ventilator, still awaiting shock which is essentially septic shock. Remains on propofol which is running at 50 mcg/kg/min. Remains on the mechanical ventilator, assist-control mode with rate of 28, tidal volume of 550 with an FiO2 of 60% with a PEEP of 5. Blood gas shows a pH of 7.29 with a pCO2 of 47 and pO2 of 78. The patient had a follow-up chest x-ray that showed lower lobe consolidation slightly worse on the right and the orotracheal tube is in a good location. Urine output is diminished in the order of 5 to 10 cc an hour and the patient is also developing progressive worsening renal function. Remains on normal citrate of 150 cc an hour and the patient was started on TPN which is running at 30 cc an hour. He has a triple-lumen catheter in his left subclavian. Overall fluid balance over the past 24 hours is +3.9 L. Output from the NG tube and the J-tube is minimal. Hemodynamically, he is hypotensive and norepinephrine running at 0.45 mcg/kg/min. Vasopressin is a physiologic dose. He received amiodarone and he remains on maintenance amiodarone of 0.5 mg/min and the patient continues to be in atrial fibrillation and is having episodes of tachycardia. The white cell count is at 13, hemoglobin 9.4 platelet count is pending. The patient's BUN is 83 with a creatinine of 3.7. Sodium is at 140 with a potassium level of 5.5 dropped down to 4.4 as the sample was hemolyzed. LFTs are normal. Abdominal wound is dry clean and intact. RAYA drainage is essentially serous at this point in time. 11/28/2023, the patient is being seen for a follow-up. The patient remains intubated on mechanical ventilator. This morning, the patient tolerated propofol drip running at 50 mcg/kg/min. The patient is on mechanical ventilator assist-control mode with rate of 28, tidal volume of 550, FiO2 55% with a PEEP of 5. Chest x-ray shows stable findings with lower lobe consolidations bilaterally. Blood gas shows a pH of 7.32 with a pCO2 38 and pO2 90. Neuropathy has improved and the patient is producing approximately 30 cc an hour and the overall input output balance is +3.3 L over the past 24 hours. The patient is still on pressors although his pressor requirements have improved since yesterday. He is on norepinephrine which is running at 0.05 mcg/kg/min and vasopressin physiologic dose. Also, the patient on amiodarone drip regarding his chronic ongoing atrial fibrillation. Amiodarone drip is running at 0.5 mg/min. Nevertheless, the rate is under much better control. Noted the patient was given a dose of digoxin 0.5 mg IV yesterday which helped with rate control. Remains on normal citrate of 150 cc an hour. Remains on TPN at 40 cc an hour. Output from the J-tube is fecal. Output from the NG tube is more gastric. Surgical wound site is dry clean and intact. Sputum Gram stain and culture showing Pseudomonas and Citrobacter. Note that the Citrobacter was intermediate resistance to Zosyn. This will be discussed further with infectious disease. Blood cultures are still pending for now. They have negative based on the most recent check. Blood work from today shows WBC count 11.2, hemoglobin 7.9 and platelet count of 46. Sodium is at 140, potassium is at 4.3, chloride is 114 with a bicarb of 18. He has 93 and the creatinine is 4.8. Serum random vancomycin level is at 25.7. On 11/29/2023, the patient is being seen for a follow-up. Remains intubated on the mechanical ventilator. The patient sedated on propofol which is running at 35 mcg/kg/min. Synchronous with mechanical ventilator. On today's evaluation, he is on assist-control mode with rate of 28, tidal volume of 550, FiO2 55% with a PEEP of 5. Chest x-ray shows lower lobe consolidation bilaterally worse on th e right and the orotracheal tube is in good location. The blood gas showed a pH of 7.34 with a pCO2 of 35 and a pO2 of 84. No significant orotracheal secretions. Hemodynamically improved compared to yesterday. In fact, the patient is on minimal norepinephrine that was discontinued earlier this morning. The patient has converted to normal sinus rhythm. Remains on amiodarone at 0.5 mg/min. Overall fluid balance over the past 24 hours is 2.4 L positive. Urine output has been adequate and the patient is currently on IV Lasix. Nevertheless, the patient has developed progressive worsening renal function. Creatinine is up to 5.3 on today's evaluation with a potassium level of 4.4. Serum bicarb is at 18 with an anion gap of 9. WBC count is at 8.1 with a hemoglobin of 7 and a platelet count of 32 which has dropped compared to earlier evaluation. The rest of the coagulation profile was normal from 11/28/2023. Fibrinogen level is slightly elevated. Sputum samples have shown a combination of Citrobacter and Pseudomonas aeruginosa. Based on cultures and sensitivities, the patient will be taken off his IV Zosyn and he will be switched to IV meropenem. Output from the J-tube is fecal. Output from the NG tube is gastric and surgical wound site is dry clean and intact. He is afebrile for now. Hemodynamically, the patient is doing better. He remains on TPN for nutritional support. IV fluids are also running at a rate of 75 cc an hour. Remains on vancomycin. 11/30/2023, the patient is being seen for a follow-up. The patient remains on propofol at 50 mcg/kg/min. Ventilator settings are essentially unchanged. The patient remains on assist-control mode with rate of 18, tidal volume of 400, FiO2 50% with a PEEP of 5. The blood gas showed a pH of 7.37 with a pCO2 of 43 and pO2 of 127. Chest x-ray shows no significant interval change. Patient remains on normal saline at rate of 75 cc an hour and TPN at rate of 35 cc an hour. Fluid balance is positive. Hemodialysis was performed yesterday and the second session of hemodialysis to be done today. The patient's urine output is in the order of 20 to 30 cc an hour. The patient has an NG output of 350 cc for yesterday and the drainage from the J-tube is in the order of 400 cc over the past 24 hours. The blood work shows a WBC count of 10.8, hemoglobin 8.1 and platelet count of 41. Platelet counts are essentially stable and slightly improved compared to yesterday. The sodium level is at 133, potassium is at 4.3, BUN is 93 with a creatinine of 3.6. LFTs are within normal limits. Albumin is down to 2.1. The patient is currently on no pressors. Norepinephrine and vasopressin are both discontinued and the patient remains in normal sinus rhythm. No other significant events overnight. Family has been updated on his condition. Antibiotic coverage is currently with IV meropenem. Vancomycin and Zosyn have been both discontinued. On 12/01/2023, the patient remains sedated on propofol which is running at 25 mcg/kg/min., Comfortable and synchronous mechanical ventilator. The patient remains on assist-control mode rate of 28, tidal volume of 550, FiO2 40% and PEEP of 5. Blood gas shows a pH of 7.49 with a pCO2 of 34 and pO2 of 121. Patient underwent hemodialysis yesterday. No plans for hemodialysis today the patient is producing urine output. Remains on TPN for nutrition support rate of 75 cc an hour. IV fluids are currently at KVO. The chest x-ray from today shows bilateral lower lobe consolidation worse on the right. No significant change in the volume status. The patient continues to have third spacing and edema in all 4 extremities. Nevertheless, urine output is adequate at this point in time and the patient remains on Lasix 80 mg IV every 12 hours. Remains NPO. NG tube and J-tube are both drainage. Output is noted. Remains on IV meropenem. Afebrile. Currently on no pressors. Blood work shows a WBC count of 11.4, hemoglobin of 8.1 and platelet count of 46. Sodium is at 131, potassium level is at 3.7, chloride 101 and bicarb is at 24. BUN is 84 with a creatinine of 3.6. Glucose of 228. LFTs are within normal limits. Patient was reevaluated today on 12/02/23, patient remains in the ICU, patient is familiar to my service, I saw this patient 3 weeks ago. Since then he had a very complicated hospital course, related to his jejunostomy tube dislodging and leaking and picture of abdominal sepsis and worsening pneumonia/ARDS. Patient had to be placed back on mechanical ventilation, and he is now intubated and mechanically ventilated. He is on assist-control rate of 20 tidal volume 550 FiO2 40% PEEP of 5 ABG showed a pO2 of 111 pCO2 38 pH of 7.43 and I cut down his FiO2 to 35% and increase his flow rate from 60-70. Patient remains on TPN at 75 cc/h he is on propofol at 25 mcg/kg/min patient is on Cleviprex which I added today for elevated blood pressure. Receiving Lasix 80 mg every 12 hours is also on Merrem as per infectious disease. Patient is on hemodialysis and being followed by nephrology. Patient required multiple abdominal surgeries since his initial admission. Chest x-ray continues to show worsening pneumonia involving both lungs, right more so than left, I suspect there may be a component of ARDS. His initial presentation was the presentation of aspiration pneumonia to begin with and that was 3 weeks agoWBC count is 10.3 hemoglobin 8.6 sodium 131 potassium 4 chloride 100 bicarb 23 BUN is 111 creatinine 4.02 blood sugar is 248. Albumin is 1.9 Patient was evaluated today on , patient remains in the ICU, intubated and mechanically ventilated. Patient is on assist-control rate of 20 tidal volume 550 FiO2 35% and PEEP of 5 ABG showed a pO2 of 99 pCO2 39 pH of 7.44 patient is undergoing hemodialysis today, and the plan is to remove 2 L. He is remains on propofol at 35 mcg/kg/min, remains on TPN at 75 cc/h. Remains on Merrem. Patient is not requiring any pressors today. Yesterday patient did not tolerate to be off sedation long enough, and today we tried the same sedation interruption, and the patient did not do well post interruption of sedation, became extremely agitated restless, tachycardic, and could not fully assess mental status off sedation. Hence the patient was placed back on AC mode of mechanical ventilation, and the plan is to continue the same supportive care measures. Family updated on his condition and most likely the patient will end up requiring tracheostomy in the next few days.WBC count is 8.5 hemoglobin 8.2 basic metabolic profile is relatively unremarkable BUN is 89 creatinine 3.45 chest x-ray today showed stable chest, suspect some right-sided pleural effusion which would likely improve with hemodialysis/ultrafiltration. X-ray of abdomen showed nonspecific nonobstructive bowel gas pattern Patient was seen today on 12/04/2023, remains in the ICU, intubated mechanically ventilated, on assist-control rate of 20 tidal volume 550 FiO2 35% PEEP of 5 ABG showed a pO2 of 112 pCO2 38 pH of 7.45, hence no changes were made in ventilator settings. Patient is on propofol at 35 mcg/kg/min he is also on IV fluid at KVO TPN at 75 cc/h. Remains on hemodialysis remains on Lasix 80 mg IV push twice daily, remains on Merrem. This x-ray continues to show the same findi ngs/airspace disease in both lungs, not much of a change in the last 2 days, however his oxygenation seems to be improved. WBC count is 7.1 hemoglobin 7.7. Electrolytes are normal, BUN is elevated 77 creatinine 3.32, patient is on hemodialysis. His condition was discussed today with the at bedside, and I do not believe the patient is ready to be weaned or extubated, however he seems to get extremely agitated when he goes off propofol, today I plan to transition propofol to Precedex, give him a trial on Precedex and determine whether the patient becomes more appropriate and at least ready for any weaning trials. Clinically I doubt if this will happen but we will go ahead and try Patient was evaluated today on 12/05/2023, remains in the ICU, intubated mechanically ventilated, not much of a change noted in the last 24 hours. Remains on assist-control of 20 tidal volume 550 FiO2 35% PEEP of 5 ABG showed a pO2 of 90 pCO2 37 pH of 7.48 hence chose not to change any of his ventilator settings. Yesterday the patient failed again trial of weaning, and he was never anywhere near ready to be weaned in spite of placing him on Precedex and off propofol, at 1 point the patient became extremely agitated restless and he was biting on the endotracheal tube could not fully awake the patient and determine improvement in his mental status. Hence patient was placed back on propofol yesterday and he remains on propofol today. He is on propofol at 25 mcg/kg/min he is on TPN at 75 cc/h surgery is considering starting his J-tube feedings today. Remains on hemodialysis remains on Merrem remains on Lasix 80 mg IV push twice daily overall not much of a change his chest x-ray is basically about the same showing bibasilar airspace disease. Today I had a discussion with the regarding the option of tracheostomy extremely reluctant to have it done yet. Said that the patient had multiple complications with previous surgeries and she is afraid that he is going to have another complication with the surgeryWBC count is 10.2 hemoglobin is 8, basic metabolic profile is normal sodium 130 BUN 70 creatinine 2.89 Patient was seen today on 12/06/23, remains in the ICU, intubated mechanically ventilated, his ventilator settings are assist-control rate 20 tidal volume 550 FiO2 35% and PEEP of 5 ABG showed a pO2 of 103 pCO2 36 pH of 7.47 patient opens eyes but does not follow any other instructions. He is now off propofol for the last 24 hours, he is maintained on Precedex at 0.4, TPN at 75 cc/h vital AF at 5 mL/h. Patient remains on Merrem, patient did not receive dialysis today because issues related to occluded dialysis catheter. Nonetheless the patient is making urine, and continues to improve with diuretics. 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 Blood sugar is 226. Family is at bedside, considering his overall mental status at this point, not quite ready to start checking weaning parameters, and is not ready for weaning. Nonetheless I plan to keep him on Precedex, and hopefully avoid narcotics and other sedatives. His mentation starts clearing a bit more, then will start trials of weaning parameters and/or weaning trials Patient was seen today on 12/07/2023, remains in the ICU, intubated and mechanically ventilated, on assist-control rate of 20 tidal volume 550 FiO2 35% PEEP of 5 ABG showed a pO2 of 83 pCO2 33 pH of 7.50 hence the tidal volume was cut down to 500. Patient remains off propofol remains off narcotics is only on Precedex for sedation at 0.6 mg/kg/h. He is on norepinephrine at 0.02 TPN at 75 cc/h IV fluid at KVO vital AF at 10 mL/h is also on Merrem. Neurologically I am concerned about this patient neurological status, does not seem to be waking up much, he opens his eyes but does not follow any instructions and spite of sedation hold for quite some time. Hence I am recommending a CT of the brain and multiple recommending a neurological consultation on this patient. WBC count is 18 7 hemoglobin is 8.4, basic metabolic profile is normal BUN is 75 creatinine 2.95, patient is back on dialysis, he had a new hemodialysis catheter placed yesterday by vascular surgery, and he will be restarted back on hemodialysis. CT of the brain done shortly after evaluating the patient showed no acute intracranial process chest x-ray basically about the same, continues to show small left and moderate right basilar infiltrate. Has not changed much over the last 1 week, patient remains on antibiotics. Patient was seen today on 12/08/2023, remains in the ICU, intubated and mechanically ventilated, remains on assist-control rate of 20 tidal volume 500 FiO2 35% PEEP of 5 ABG showed a pO2 of 88 pCO2 37 pH of 7.47 hence no changes were made in ventilator settings. Chest x-ray is showing slight increase in his right-sided pleural effusion, however his oxygenation seems to be about the same, and the patient is responding to Lasix given at 80 mg IV push every 12 hours, he is also doing well with hemodialysis he had 2 L removed yesterday and 2 L the day before. Hence will not recommend thoracentesis at this point. But the pleural effusion will need to be closely monitored. Patient remains off propofol he is on Precedex at 0.6 mcg/kg/h. For the last 2 days, and his mentation is not much different from baseline. Continues to open his eyes and does not follow any other instructions has the patient is clearly not ready for weaning trials or extubation. Brought up the issue of tracheostomy again with the , she is still reluctant to proceed with tracheostomy on him at this point. Patient remains on Merrem, remains on TPN but his enteral feeding will be advanced today to full goal, and if that happens then we will can discontinue TPN. Patient is receiving vital AF 1.2@10 mL/h at this point.WBC count is 19.3 hemoglobin 7.6. Basic metabolic profile is normal BUN is 72 creatinine 2.99 blood sugar ranging between 250 up to 334. 12/09/23 - patient seen at bedside today, remaining in the ICU, intubated and mechanically ventilated, remaining on assist-control rate of 20, tidal volume 500, FiO2 30%, PEEP of 5 and oxygen saturation of 100%. Patient is on day 27 of his hospital stay (admitted 11/11), day 15 of this current ICU stay (readmit to the ICU 11/24) and day 15 of this current period of time on the ventilator (placed 11/24). ABG showed pO2 100, pCO2 36, pH 7.47. Chest x-ray was deemed to be stable, however possibly with slight improvement noted on the left with a right-sided pleural effusion remains evident however the patient's oxygenation remains to be about the same. Continue to receive 80 mg IV Lasix every 12 hours and is receiving daily hemodialysis, in which he has been having 2 L removed the past couple of days, hemodialysis yet to occur today. His creatinine is 3.57 (compared to 2.99 yesterday) and BUN 98 (compared to 72 yesterday). Due to this response to diuresis and hemodialysis, no thoracentesis recommended at this point however pleural effusion will need to continue to be monitored. Patient shon off propofol, he is on Precedex at 0.4 mcg/kg/h. Due to his mentation remaining near baseline, neurology had been consulted who ordered an EEG which showed diffuse background slowing of his severe degree which is suggestive for generalized cerebral dysfunction and can be seen with toxic metabolic encephalopathy, as well as the presence of sporadic intermittent, some higher amplitude, sharply contoured waves of generalized distribution. Because of this per neurology's recommendation, patient started on Keppra 500 mg twice daily. The patient does seem to be having some improved mentation, with opening his eyes and responding to commands some of this morning. Spontaneous breathing trial to be attempted today, to see if the patient will be able to come off of mechanical ventilation. If that is unable to occur, discussed with the patient as well as his and one of his daughters that a tracheostomy would be the most appropriate next course of action due to the potential dangers of sustained endotracheal intubation for prolonged period of time. The , while reluctant, seem to acknowledge that this is the appropriate course of action. He remains receiving meropenem 1 g nightly. He remains on TPN 75 mL/h, which she has been on since 11/21 (18), but his enteral feeding has been vital 1.2 AF at 10 mL/h with a goal rate of 80 mL/h. Patient drained 60 mg of serosanguineous fluid from his RAYA. His WBCs increased to 21.5 (compared to 19.3 yesterday), hemoglobin dropped to 7.2 (compared to 7.6 yesterday), hematocrit dropped to 22.0 (compared to 22.9 yesterday) and patient procalcitonin remains elevated at 3.07. 12/10/23 - Patient seen at bedside today, remaining in the ICU, intubated and mechanically ventilated, remaining on assist-control rate of 20, tidal volume 500, FiO2 30%, PEEP of 5 and oxygen saturation of 100%. Patient is on day 28 of his hospital stay (admitted 11/11), day 16 of this current ICU stay (readmit to the ICU 11/24) and day 16 of this current period of time on the ventilator (placed 11/24). ABG showed pO2 93, pCO2 37, pH 7.47, showing evidence of a mild metabolic alkalosis. Chest x-ray today showed stable disease compared to yesterday. He received levo overnight due to atypical blood pressure, patient's TPN was up to 120 due to the change in formula. Patient is scheduled to undergo tracheotomy today (12/09) at 16:30. Per the nurse and the overnight staff patient continues to open his eyes and shows some responsiveness to commands. Per nephrology's recommendation dialysis to be held today due to the patient going for the tracheotomy later, as well as the dip in blood pressure seen after yesterday's dialysis session which required Levophed. Patient's Hgb this morning 6.6, will be given 1 unit today, which will be the second unit he has received during his hospital course. Patient's airway resistance noted to be 3.3 cm/L/s, static lung compliance shown to be 45 mL/cm H2O and dynamic compliance 33 mL/cm H2O. 12/11/23 - Patient seen at the bedside, remaining in the ICU, with a tracheotomy tube and mechanically ventilated while receiving dialysis. Patient remains on assist-control rate of 20, FiO2 30%, PEEP of 5 and has an oxygen saturation of 97%. Patient is on day 29 of the hospital stay (admitted 11/11), day 17 of his current ICU stay (readmitted to the ICU 11/24) and day 17 of his current period of time on the ventilator (placed 11/24). ABG today showed pO2 115, pCO2 38, pH 7.44 continuing to show evidence of a mild metabolic alkalosis. Chest x-ray today showed stable disease. Patient had tracheotomy placed yesterday afternoon (12/09) without any complications. Patient has had 3 consecutive days of attempting spontaneous breathing trials in an effort to wean the patient off the ventilator, all of which failed to this point. Beginning today the patient's antibiotics (meropenem) will be discontinued and we will begin weaning his propofol down from 25 mcg/kg/min. As the patient is weaned off of the propofol, 0.5 Dilaudid and 1 mg IV Ativan to be used every 6 hours as needed. Patient is continuing to receive normal saline 20 cc/h, and has a total of 200 mL of serosanguineous fluid from his RAYA drain. TPN to continue at a rate of 120 mL/h additionally tube feeds, which had been held due to the patient receiving s traight catheter yesterday, will be restarted today with an ultimate goal being to receive enteral nutrition at a rate of 80 mL/h. TPN to continue until able to increase the enteral nutrition to at least 50 mL/h, as per the dietitian's recommendation. Will be exploring the possibility of the patient being moved to select specialty. 12/12/23 - Patient seen at the bedside this morning, in ICU room 253, while receiving and EEG, no significant events overnight. Patient remains with tracheotomy and is mechanically ventilated on assist control with a rate of 20, tidal volume 500, FiO2 30%, PEEP of 5 with an oxygen saturation of 98%. Patient is on day 30 of the hospital stay (admitted 11/11), day 18 of his current ICU stay (readmitted to the ICU 11/24) and day 18 of his current period of time with mechanical ventilation (placed in 11/24). ABG today showed pO2 92, pCO2 36, pH is 7.49 continue to show signs of a combined respiratory and metabolic alkalosis. WBC 17.9, Hgb 7.4, Hct 22.6, PLT 151; sodium 133, potassium 4.0, HCO3 27, BUN 88, creatinine 2.96. Chest x-ray done today continuing to show patchy infiltrate throughout the right lung with layering effusion. Patient is continuing to receive normal saline 20 cc/h, continues to receive Dilaudid 0.5 mg IV push every 6 hours as needed, as well as Ativan 1 mg IV every 6 hours as needed. Patient is no longer maintained on propofol. TPN continues at a rate of 120 mm/h and EN vital AF at 30 mL/h with a goal of 40 mL/h. Once goal is reached, TPN can be discontinued and patient will be switched over to Nepro 50 mL/h. Following the patient having 3 consecutive days of attending spontaneous breathing trials and effort to wean, we will begin trying the patient with CPAP and pressure support in effort to wean, today's trial the patient will be placed on PS 5 and PEEP of 5 for 25-45 minutes, or as he is able to tolerate it. Disc ussed with the patient's the importance of continuing to wean the patient's with trials, in an effort to build up some of the strength in his lungs to better be able to tolerate breathing on his own. Will continue to evaluate for possible placement in a long-term acute care facility. 12/13/23 - Patient seen at the bedside this morning, in ICU room 253, with no significant events overnight noted. Patient remains with tracheotomy and is mechanically ventilated on assist control with a rate of 20, tidal volume 500, FiO2 30%, PEEP of 5 with an oxygen saturation of 98%. Patient is on day 30 one of the hospital stay (admitted to 11/11), day 19 of his current ICU stay (readmitted to the ICU 11/24) and day 19 of his current period of time with mechanical ventilation (placed 11/24). ABG today showed pO2 87, pCO2 36, pH 7.48 continue to show signs of a combined respiratory metabolic alkalosis. WBC 17.3, Hgb 8.0, Hct 25.3, PLT 191; sodium 136, potassium 4.1, BUN 116, creatinine 3.17. This x-ray done today continues to show stable disease. Patient had an EEG completed yesterday (12/11) which showed an abnormal EEG, study being limited because of diffuse myogenic artifact. Background slowing suggestive of severe encephalopathy. Otherwise no appreciable epileptiform discharges, focal slowing, or seizure noted during the exam. Patient continues to receive Dilaudid 0.5 mg IV push every 6 hours as needed, as well as Ativan 1 mg IV every 6 hours as needed. Patient's TPN has been stopped, he is not receiving Nepro at 50 mL/h, which is goal. Patient Solu-Medrol has been discontinued, patient now receiving 30 mg prednisone daily. Patient's trial yesterday with CPAP and pressure support with the patient was sent PS of 5 and PEEP of 5, patient tolerated 40 minutes well it was noted that his respiratory rate increased and his minute ventilation also increased during this time. Will continue with another weaning effort today and continue to reassess how the patient tolerates. He will be receiving hemodialysis today, with the plan to hold over the weekend and then reassess Saturday per nephrology. Additionally IV Lasix has been discontinued on this patient, nephrology did state that he may need to resume receiving the Lasix if the urine output tapers. Progress note dated December 14, 2023. The patient is seen today in room 253. The patient remains on the mechanical v entilator. His settings include volume assist-control, rate 20, tidal volume 500, FiO2 30%, PEEP of 5. Blood gases show pO2 of 76, pCO2 of 36, pH of 7.47. The patient is getting saline at 10 cc an hour, and Nepro at 50 cc an hour which is goal. The patient will go back on pressor support of 5 and CPAP of 5 today. Yesterday, he spent 2-1/2 hours on pressure support. The patient did have a tem perature last night. He discussed some purulent drainage at the wound site. I have asked surgeon to come back and see the patient. In addition, the nurse will get blood, urine, sputum, and wound cultures going. He is not on any antibiotics. We will check a procalcitonin level. White count of 16.7, hemoglobin 8.1, hematocrit 24.5, platelet count is normal. Sodium 135, potassium 3.9, chlorides 103, CO2 24, BUN 106, creatinine 3.04. Calcium is 7.1. Magnesium is 2.0. Urine is yellow, with 1+ protein, 6 WBCs, and rare bacteria. Chest x-ray shows a stable chest x-ray, which is largely unchanged. Progress note dated December 15, 2023. 73-year-old male seen again in room 253. The patient remains on mechanical ventilator. Blood gases show pO2 of 78, pCO2 of 36, pH of 7.47. The patient is getting saline at KVO, and Nepro at 50 cc an hour which is goal. The patient did a spontaneous breathing trial yesterday, and went about 6 hours on PSV 5, CPAP of 5. The patient's procalcitonin level was elevated at 1.92. We added back Zosyn. Yesterday we did sputum, blood, urine, and wound cultures. The patient will have another spontaneous breathing trial today. Current labs include a white count 16.3, hemoglobin 7.5, hematocrit 22.6, and a normal platelet count. Sodium 138, potassium 3.5, chlorides 105, CO2 24, BUN 125, and creatinine 3.22. Glucose is 220. Calcium is 6.9. Chest x-ray shows a right- sided pleural effusion, and some similar changes, to the previous x-ray. This is a 73-year-old white male with history of chronic abdominal pain for the last 8 months has been treated with Protonix 40 mg daily for the last 3 months with no improvement. Patient had a 22 pound weight loss in the last [address] of the abdomen and pelvis 3 weeks ago showed thickening of the antral wall with pathological adenopathy posterior to the stomach suspicious of neoplasm. Today the patient underwent elective upper endoscopy to evaluate further, patient received IV sedation by anesthesia endoscope was inserted into the mouth, esophagus was intubated without any difficulty there was evidence of large amount of liquid and solid food noted in the stomach suggestive of gastric out let obstruction. Scope could not be advanced through the pylorus, however in the prepyloric area there was a large superficial ulceration identified with multiple biopsies were done from this area. The body cardia and fundus could not adequately visualize because of large amount of retained food in the stomach. Scope was withdrawn back to the stomach and upon careful examination the mucosa of the antrum body and cardia as well as the fundus appeared normal. Procedure was being performed and biopsies were done patient threw up and subsequently became hypoxic there was clearly evidence of witnessed aspiration anesthesia intubated the patient, procedure was terminated, and the patient was transferred to the ICU, this consult was initiated. Patient is now on assist- control rate of 20 tidal volume 500 FiO2 70% PEEP of 10 ABG is pending, earlier ABG showed profound hypoxia patient is on propofol at 50 mcg/kg/min, next ABG is pending. Chest x-ray showed chronic changes without evidence of acute pulmonary disease. 12/20/2023, the patient is being seen for a follow-up. More alert and awake compared to yesterday. He is able to move his fingers and toes on today's evaluation. Following commands. Nevertheless, his J tube has been clogged and was unable to utilize the tube that has been some leaks around the tube. No abdominal distention. No nausea or emesis. Hemodynamically stable. Will undergo hemodialysis today. He remains on pressure control mode of mechanical ventilation at rate of 16, pressure of 10, +5 PEEP with an FiO2 of 30%. Chest x-ray from today is essentially unchanged with a stable cavity in his right upper lobe. White cell count of 15.7, hemoglobin 7.2, platelet count is 203, blood gas showed a pH of 7.49 with a pCO2 of 33 and pO2 of 73. BUN is 88 with a creatinine 1.89 and sodium is at 141 with a potassium level of 4.1. He is producing adequate amount of urine output. Fluid balance has been -900 cc over the past 24 hours. Normotensive. Remains on a combination of Zosyn and daptomycin. Remains on Levemir insulin 24 units daily. This is currently on hold as the patient has not been able to obtain enteral feeding. Wound VAC still in place. 12/21/2023, the patient remains on the mechanical ventilator. Overnight, the patient experienced discomfort in his abdomen and he was restless. Based on that, the patient was placed on a higher dose of Precedex which is currently running at 0.6 mcg/kg/h. The patient was also asynchronous with the mechanical ventilator and based on that, the patient was switched to an AC mode and currently is at a rate of 16, tidal volume of 400, FiO2 of 30% with a PEEP of 5. The patient is adequately sedated for now. Chest x-ray remains unchanged. Tracheostomy tube in place and the patient is having increased amount of respiratory secretions. J tube needs to be replaced today and this will be done by his general surgery as the tube remains clogged. Urine output is low order of 30 cc an hour. Afebrile. Remains on Zosyn and daptomycin. White cell count is 16.9, hemoglobin 7.4 and a platelet count of 280. Blood gas from today showed a pH of 7.46 with a pCO2 of 36 and pO2 of 82. Sodium levels of 144, BUN is 19 with a creatinine of 2.2 and a serum bicarb is at 23. The abdominal wound remains unchanged. RAYA drain is serosanguineous. 12/22/2023, patient remains on Precedex at 0.4 mcg/kg/min. Arousable. Communicates. Profoundly weak. Remains on the mechanical ventilator with a rig ht lung abscess. SIMV mode mode rate of 16, tidal volume of 400, FiO2 30% with a PEEP of 5, with a pressure support of 8. Blood gas showed a pH of 7.46 with a pCO2 of 32 and a pO2 of 82. Chest x-ray remains unchanged with a right upper lobe cavitating lesion/opacity and a suspected lung abscess. This is rated Pseudomonas and the patient remains on IV Zosyn. He remains on daptomycin. Urine output is in order of 50 cc an hour.. The J-tube was unplugged yesterday. Nevertheless, the tube itself is malfunctioning and there is drainage around the tube requiring dressing changes the dressings being soakedConstantly. The patient's white cell count is 12.3 with a hemoglobin 7.7. Sodium is at 149, BUN 91 with a creatinine of 2.3. Bicarb is at 20. Undergoing hemodialysis periodically. Last hemodialysis was on 12/21/2023. Currently NPO. Abdominal wound is clean and the patient has a wound VAC in place. RAYA drain output is serosanguineous. Patient was seen today on 12/23/2023, remains in the ICU, intubated and mechanically ventilated. Patient is on IMV with pressure support/IMV 16, pressure support of 8, tidal volume 400, PEEP of 5. Patient seems to be doing well with that kind of mode of mechanical ventilation, ABG showed a pO2 of 76 pCO2 28 pH of 7.50. I changed his rate from 16-8 kept him otherwise on the same ventilator settings. Plan to gradually go down on the IMV rate until we can get him on pressure support of 8 and CPAP. Patient is requiring Precedex at 0.4 m cg/kg/h, he is on D5W at 50 cc/h. Remains on antibiotics in the form of daptomycin and Zosyn, chest x-ray continues to show bilateral airspace disease and right upper lobe lung abscess. Continues to have a bit of a leak from his J-tube being addressed by surgery has a wound VAC, and he had a RAYA drain. Mentation arce the patient is a bit more appropriate, opens his eyes, follows very simple instructions, seems to comprehend. Patient has a left brachial PICC line, he also has a left groin hemodialysis catheter. WBC count is 10.1 hemoglobin is 7 sodium is 149 potassium 4 chloride is 121 BUN is 86 creatinine 2.31. Blood sugar is 173. Remains on enteral feeding via J-tube, a bit of a leak is noted, and surgery is to address this. Sputum cultures have grown Klebsiella and Pseudomonas and remains on proper antibiotics Patient was seen and examined today on 12/24/2023, patient remains in the ICU, and mechanically ventilated. On IMV mode of 8 pressure support of 8 tidal volume 400 FiO2 30% and PEEP of 5 ABG showed a pO2 of 81 pCO2 32 pH of 7.45. Patient remains on daptomycin and Zosyn, remains on Precedex at 0.4 mcg/kg/h intermittently receiving Dilaudid for pain. Feeding arce is presently on hold, patient had a leak around the jejunostomy tube, surgery is recommending a trick le feed or TPN if could not use the J-tube. Patient is arousable follows simple instructions, and today I had a chance to get rid of the IMV mode, and I am recommending a pressure support of 8 and CPAP. For the last few hours the patient has been tolerating this mode of mechanical ventilation, however he is not quite ready to go to [facility] at this point. Chest x-ray continues to show significant opacity in the right upper lobe and airspace disease in the right lower lobe. Previously patient had a CT of the chest showing right upper lobe abscess. Again he remains on Zosyn and daptomycin.Labs today showed WBC count of 10.6 hemoglobin 7.8 sodium is 147, patient is now on D5W at 100 cc an hour his bicarb is 19 BUN 74 creatinine 2.08, gradually improving, his last hemodialysis was on the , nephrology is considering removing his dialysis catheter in the left groin and I believe that is appropriate patient was seen and examined today on 12/25/2023, remains in the ICU, intubated and mechanically ventilated. Patient had to be placed back on assist-control mode of mechanical ventilation yesterday, mostly because he developed significant agitation and restlessness, and ongoing persistent cough with some air leak from the cough of that tracheostomy. Patient had to be sedated and he was placed on propofol and he remains on propofol at 50 mcg/kg/min. Maximal dose of Precedex yesterday could not calm him down, hence we had to transition him from pressure support/CPAP mode of mechanical ventilation to assist-control mode of mechanical ventilation and fully sedated him with propofol replacing Precedex. Today the patient is sedated, he is on assist-control rate of 16 ti sierra volume 400 FiO2 30% PEEP of 5 ABG showed a pO2 of 98 pCO2 30 pH of 7.45 chest x-ray is basically the same showing significant airspace disease in the right upper lobe and right lower lobe. Remains on daptomycin and Zosyn. His IV fluid was transitioned to D5 4 5 from D5W sodium today is 141. His urine output is about 40 to 50 cc/h, renal profile is improving with steady trending of creatinine down. Patient continues to have leakage around the jejunostomy tube. Patient is being followed by surgery no specific recommendation made except to continue the same and except the leak as it isLabs today showed WBC count of 11.5 hemoglobin 8.2 basic metabolic profile is normal BUN is 60 creatinine down to 1.81 Patient seen today on 12/26/2023, remains in the ICU intubated mechanically ventilated sedated patient is on assist-control rate of 16 tidal volume 400 FiO2 30% PEEP of 5 ABG showed a pO2 of 82 pCO2 34 pH of 7.43. Patient is now on TPN at 30 cc/h propofol at 50 mcg/kg/min hemoglobin is down to 6.8 today and he is receiving a unit of packed RBCs. His IV fluids at 50 cc/h in the form of 0.9 normal saline. He was last night on a small dose of norepinephrine at 0.01 mcg/kg/min and is presently on hold. Antibiotics arce patient is on Zosyn daptomycin and Eraxis. Chest x-ray continues to show significant airspace disease involving the right upper lobe and right lower lobe not much of a change noted on the chest x-ray. Clinically the patient is about the same, today I plan to discontinue propofol, arrange for the patient to go on Precedex, and assess mental status off sedation. If tolerated, may transition the patient again to pressure support and CPAP type of mechanical ventilation, but he is not ready to go to that transition yet. WBC count is 11.6 hemoglobin 6.8. ABG today showed a pO2 of 82 pCO2 34 pH of 7.43 potassium is 3.3 being addressed accordingly BUN is 53 creatinine 1.84 Patient was evaluated today on 12/27/2023, remains in the ICU intubated and mechanically ventilated. Patient is presently on IMV mode of mechanical ventilation with pressure support rate of 16 pressure support 14 tidal volume 400 FiO2 30% and PEEP of 5 ABG showed a pO2 of 99 pCO2 31 pH of 7.44. Intermittently the patient has been experiencing episodes of extreme agitation and restlessness he is on Precedex at 0.5 mcg/kg/h. Patient is on IV fluid 0.9 normal saline at 50 cc/h and is also receiving TPN. Remains on Eraxis daptomycin and Zosyn patient is intermittently requiring Dilaudid, Ativan does not seem to help his agitation and restlessness. But Dilaudid does hence I would recommend 0.5 mg every 2-3 hours as needed for agitation. Patient has good urine output roughly about 100 cc/h. Continues to have leakage around the jejunostomy tube, and patient is undergoing the J-tube exchange today. Family is at bedside, seems to be quite anxious about his overall condition, and I explained to the that we are doing the best we can considering his critical illness situation and critical illness polyneuropathy. Patient is profoundly weak, and weaning the patient from mechanical ventilation is almost impossible. At least not at this point yet WBC count is 10.9 hemoglobin is 8.1 basic metabolic profile is normal BUN is 46 creatinine 1.90 patient has been off hemodialysis since the . Chest x-ray continues to show stable findings with right upper lobe opacity and right lower lobe opacity and possibly a small right-sided pleural effusion Was evaluated today on 12/28/2023, patient remains in the ICU, intubated and mechanically ventilated, on IMV mode of mechanical ventilation rate set at 16 he is on pressure support of 14 tidal volume 400 FiO2 30% and PEEP of 5 ABG showed a pO2 of 113 pCO2 31 pH of 7.43. No major events overnight, patient is still requiring Precedex at 0.7 mcg/kg/h. He is on TPN as we could not use his jejunostomy tube, no jejunostomy tube was done yesterday, IV fluid is 0.9 at 50 cc/h remains on TPN at 65 cc/h patient is on Eraxis daptomycin and Zosyn. Chest x-ray is showing improvement in his right upper lobe airspace disease/lung abscess and there is a slight improvement in his right lower lobe opacity. Kathryn ent is arousable but does not follow any instructions, patient gets agitated easily if aroused and he started gagging on the tracheostomy tube. Family is at bedside, again updated on his condition. WBC count is 7.6 hemoglobin 7.9. Basic metabolic profile is normal BUN is 45 creatinine down to 1.51 patient has not had any dialysis since 12/17, his renal functioning and urine output continues to improve, hence I am strongly recommending removing his dialysis catheter Patient was seen on 12/29/2023, remains intubated and mechanically ventilated, in the ICU, on IMV of 16 tidal volume 400 FiO2 30% PEEP of 5 ABG showed a pO2 of 105 pCO2 31 pH of 7.45. Remains on Precedex at 0.8 mcg/kg/h, remains on TPN at 65 cc/h IV fluid 0.45 at 50 mL/h remains on multiple antibiotics and antifungal including Eraxis daptomycin and Zosyn. His hemodialysis catheter has been removed, urine output has been excellent renal functioning is improving chest x- ray is showing improvement in his right upper lobe airspace disease/pulmonary abscess. Right lower lobe seems about the same with chronic opacity and possibly some small right-sided pleural effusion. Family is at bedside, patient is arousable but does not follow any instructions. Gets extremely restless and agitated easily hence patient is receiving Dilaudid which seems to be working much better for this patient than benzodiazepines. And we are trying to avoid Ativan, trying to avoid any propofol as much as possible. I believe his drainage from the jejunostomy tube is becoming less and less, hence we could start considering early next week arrangement to possibly transfer the patient to a select care specialty. In the meantime I am recommending that we go down on the IMV rate by 2 every 2 hours the goal is pressure support of 14 and IMV of 8. Progress note dated December 30, 2023. This is a 73-year-old male who is now been in the hospital for 48 days. The patient was admitted back on November 11. Currently, he is seen in the intensive care unit, room 253. The patient is currently on synchronized IMV mode, rate of 8, pressure support of 14, PEEP of 5, FiO2 30%, and a backup tidal volume of 400 cc. Blood gases showed a pO2 of 87, pCO2 of 31, and a pH of 7.42. The patient will be switched back to the volume assist-control mode, as he is not ready to be weaned. His minute volume is nearly 18 L/min. He is breathing at a rate of about 40 times per minute. He currently is on Precedex 0.8 mics per kilogram per minute, TPN at 90 cc an hour, and half-normal saline at 50 cc an hour. The patient continues on Zerbaxa, Eraxis, and daptomycin. White count 11.5, hemoglobin 8.1, hematocrit 25, platelet count of 78,000. Sodium 142, potassium 4.2, chlorides 119, CO2 20, BUN 42, and creatinine 1.22. Glucose is 178. Albumin is 1.9. Sputum from December 24 shows evidence of Citrobacter freundii and Pseudomonas aeruginosa. Blood cultures from the same day were positive for Staphylococcus. Chest x-ray shows extensive pleural-parenchymal opacities, in both lungs, and the chest x-ray is largely unchanged from the pre vious days x-ray. Progress note dated December 31, 2023. 73-year-old male now here in the hospital for 49 days. The patient was admitted way back on November 11. He is seen today in room 253. Family members are at the bedside. The patient currently is on volume assist-control, rate 32, tidal volume 400, FiO2 30%, PEEP of 5. Blood gases show pO2 of 94, pCO2 of 35, pH is 7.40. Unfortunately, the patient is not synchronous with the ventilator, and so we switched to pressure regulated volume control or VC plus. We set an inspiratory time at 0.8 seconds, and the targeted tidal volume of 450 cc. The patient is on TPN at 70 cc an hour, saline at KVO, propofol at 40 mcg/kg/min. The patient continues on Eraxis, daptomycin, and Zerbaxa. Current labs include a white count 12.8, hemoglobin 7.3, hematocrit 22.4, and a platelet count of 67,000. Sodium 140, potassium 3.6, chlorides 119, CO2 20, BUN 43, creatinine 1.15. Glucose is 223. Calcium is 6.8. Today's chest x-ray is largely unc hanged. Progress note dated January 01, 2024. 73-year-old male seen again in room 253. The patient has not been in the hospital for 50 days. The patient continues on the mechanical ventilator. He is on pressure regulated volume control, or VC plus. His target tidal volume is 450 cc and his inspiratory time RTI is 0.8 seconds. His respiratory rate is 32. PEEP is 5, and FiO2 is 30%. Blood gases show pO2 of 98, pCO2 of 34, and a pH of 7.40. The patient continues on propofol at 15 mcg/kg/min, and TPN at 90 cc an hour. The patient also continues on Zerbaxa, daptomycin, and Eraxis. White count is 12.1, hemoglobin 7, hematocrit 22.0, and platelet count 69,000. Sodium 141, potassium 4.3, chlorides 120, CO2 19, BUN 44, creatinine 1.11. Calcium is 7. Chest x-ray shows a right-sided pleural effusion, with adjacent atelectasis and/or consolidation. There is a small left-sided pleural effusion as well. Progress note dated January 02, 2024. 73-year-old male seen again in room 253. The patient has not been here in the hospital for 51 days. He remains on mechanical ventilator. He is on the pressure regulated volume control modality no also noted his VC plus. The patient is on a rate of 32 breaths/min, PEEP of 5, FiO2 30%, inspiratory time her TI was 0.8, and a target tidal volume of 450 cc. Blood gases show pO2 of 90, pCO2 34, pH is 7.40. The patient is receiving TPN at 90 cc an hour, propofol at 20 mcg/kg/min, and has received a total of 6 units of packed red blood cells. The patient is going to get Dilaudid and Ativan scheduled. Dilaudid will be 1 mg every 2 hours, and Ativan 1 mg every 6 hours. The patient continues on daptomycin, Eraxis, and Zerbaxa. White count is 10, hemoglobin 6.5, hematocrit 20.3, platelet count 83,000. Sodium 140, potassium 4.6, ch lorides 119, CO2 20, BUN 45, creatinine 1.08. Most recent cultures are from December 24, showing evidence of Citrobacter from the and Pseudomonas aeruginosa, in the sputum. Blood cultures, on the same day, show evidence of Staphylococcus species. Chest x-ray shows extensive pleural-parenchymal opacities in the right hemithorax, and patchy opacity at the left lower lobe area. Progress note dated January 03, 2024. 73-year-old male seen in room 253. The patient has now been in the hospital for 52 days. He remains on mechanical ventilator, with the modality being the pressure regulated volume control modality, also known as VC plus. The patient's inspiratory time is 0.8 seconds, and his targeted tidal volume is 450 cc. Rate is 32, FiO2 30%, PEEP of 5. Blood gases show pO2 of 95, pCO2 of 34, pH of 7.41. The patient is on TPN at 90 cc an hour, propofol at 15 mcg/kg/min, saline at 10 cc an hour. Daptomycin and Eraxis have been discontinued. Zerbaxa is on day #6 of . We are going to DC the metoprolol and midodrine from the [facility]. Apparently, the patient has been denied twice, to the [facility] acute care facility by his insurance. White count is 1.5, hemoglobin 8, macro 24.4, platelet count 78,000. Sodium 139, potassium 5.3, chlorides 119, CO2 20, BUN 44, creatinine 1.05. Glucose 192. Calcium 7.1. Magnesium 1.8. The chest x- ray today, is largely unchanged. Progress note dated January 04, 2024. 73-year-old male seen in room 253. The patient has now been in the hospital for 53 days. He remains on the mechanical ventilator. He is on pressure regulated volume control or VC plus, but the inspiratory time is 0.8 seconds, and a targeted tidal volume of 450 cc. His rate is 32, FiO2 is 30%, PEEP of 5. Blood gases show pO2 of 81, pCO2 of 35, and a pH of 7.44. He is on propofol at 10 mcg/kg/min, TPN at 90 cc an hour, and saline at 10 cc an hour. His only anti biotic currently is Zerbaxa. White count 13.4, hemoglobin 8.1, hematocrit 25, platelet count 95,000. Sodium 141, potassium 5.2, chlorides 114, CO2 23, BUN 47, creatinine 1.10. Glucose is 110. Calcium 7.4. Albumin is 1.8. Chest x- ray shows a largely unchanged evaluation. Progress note dated January 05, 2024. 73-year-old male seen in room 253. The patient has now been in the hospital for 54 days. He remains on mechanical ventilator. He is on pressure regulated volume control, with inspiratory time of 0.8 seconds, and a targeted tidal volume of 450 cc. Rate is set at 32, FiO2 30%, PEEP of 5. Blood gases show pO2 of 98, pCO2 35, and a pH of 7.42. The patient's propofol has been weaned off. He is just getting scheduled Dilaudid and Ativan. He is getting TPN at 90 cc an hour, saline at 10 cc an hour. His only antibiotic is Zerbaxa, as Eraxis, and daptomycin has been discontinued. The patient will get a spontaneous breathing trial today with pressure support of 10 and CPAP of 5. White count 11.3, hemoglobin 7.6, hematocrit 23.4, platelet count 100,000. Sodium 138, potassium 3.9, chlorides 116, CO2 21, BUN 46, Creatinine 1.07. Albumin Is 1.9. Chest x- ray is largely unchanged. Patient was reevaluated today on 01/17/2024, patient was supposed to be sent home today with hospice to follow at home, however the family today/ change her mind, and asking to consider palliative care, she is also asking for a second opinion but she is not specific about the second opinion, explained to her that the only 3 health care technician that we have in this institution is myself Dr. Livia espinoza and Dr. Nieves and we have all given the same opinion, and if she could find a place where they could accept him to transfer to another institution, I will be more than happy to do so patient was declined transfer to [facility] he was also declined transfer to the [facility]. Today he is on pressure control mode of mechanical ventilation basically unchanged compared to yesterday. He remains on Precedex 1.4 mcg/kg/h remains on TPN, still could not use his J-tube. Patient is intermittently on Dilaudid, antibiotics arce he is receiving Cipro and fluconazole. Patient had multiple attempts to wean, could not tolerate more than few hours of pressure support of 14 and CPAP this has been done quite frequently and sometimes he does not even tolerate the switch from pressure control mode of mechanical ventilation to pressure support of mechanical ventilation. Patient is definitely a failure to wean and multiple attempts have failed. Patient has critical illness polyneuropathy he continues to have some nonspecific airspace disease bilaterally continues to have a pigtail catheter in place, and continues to have air leak,WBC count today is 16.3 hemoglobin 8.1 electrolytes showed low potassium of 3.3 being addressed accordingly renal profile is normal. Chest x- ray today is actually showing improvement compared to the previous x-rays he had all along. With significant improvement in the right upper lobe and the right lower lobe, continues to have some infiltrate in the left lower lobe Castriz seems to be intact Patient was seen01/18/24, remains in the ICU, remains intubated and mechanically ventilated, he is on pressure control mode of mechanical ventilation with pressure control of 15, DI of 0.8, rate 20, FiO2 30% and PEEP of 5 no ABG was done this morning did not feel to be necessary. Patient had a WBC of 15.8 hemoglobin 7.4. Basic metabolic profile is normal renal profile is normal continues to have bilateral airspace disease on chest x-ray specially the right upper lobe, and left lower lobe. Continues to have a pigtail catheter in place and continues to drain and he continues to have a air leak. Patient remains on ciprofloxacin, he is also on fluconazole, tobramycin was added by infectious disease on the case. Patient is getting now physical therapy and Occupational Therapy, he remains on Precedex at 1.3 mcg/kg/h he is also on TPN at 90 cc/h chest x-ray was noted and again he has bilateral airspace disease. Patient remains frail, chronically ill, and he does have clearly critical illness polyneuropathy. No plans by surgery to do much about his J-tube, continues to have a wound VAC in place. Today the patient will be given another trial of pressure support and CPAP, and will document how long he could do on pressure s upport mode of mechanical ventilation Patient was seen today on 01/19/2024, patient remains in the ICU, intubated and mechanically ventilated. Patient tolerated about 2 hours of pressure support and CPAP weaning yesterday, then he became restless, agitated, and went on to develop this ongoing cough. Hence had to be placed back on mechanical ventilation and remains on pressure control mode of mechanical ventilation with PI 15 ti 0.8 per 820 FiO2 30% PEEP of 5. Patient continues to have episodes of agitation and he has been on Precedex at 1.1 mcg/kg/h. Remains on TPN at 90 cc/h remains on IV fluid of 0.9 at 50 cc/h sodium is 129, that we will correct with 0.9 normal saline. Patient remains on tobramycin and ciprofloxacin and fluconazole. Continues to have right-sided pigtail catheter in place, and continues to have ongoing air leak. Chest x-ray continues to show airspace disease in both lungs but more concerning is the right upper lobe abnormality. Multiple attempts have been made in the past to wean the patient, and has not been able to tolerate more than few hours of pressure support and CPAP, will try another weaning trial today with pressure support of 14 and CPAP. Unfortunately I cannot place the patient on Seroquel and hoping to get rid of Precedex, mostly because we cannot use his GI tract. Fanny arce the patient remains on TPN. Progress note dated January 20, 2024. 73-year-old male who is now been in the hospital for 69 days. I last saw the patient on January 05, 2024. Currently, the patient remains in the intensive care unit, room 253. He spent about 20 hours on pressor support of 14 and CPAP of 5, yesterday, and is currently back on pressor support and CPAP. When not on pressor support and CPAP, the patient is on pressure assist control, with an inspiratory pressure of 15 cm of water, and inspiratory time is 0.8 seconds. Respiratory rate 20, PEEP 5, and FiO2 30%. The patient remains on TPN at 90 cc an hour, and saline at 50 cc an hour. He continues on Precedex at 1 mcg/kg/h. The patient is also on ciprofloxacin, tobramycin, and Diflucan. Current labs are good a white count 16.3, hemoglobin 8.3, hematocrit 25.3, and a normal plate let count. Sodium 130, potassium 3.7, chlorides 103, CO2 22, BUN 30, creatinine 0.65. Albumin is 2.2. Glucose is 195. Most recent sputum shows evidence of Pseudomonas aeruginosa. Chest x-ray is showing chronic changes, with no appreciable change. Progress note dated January 21, 2024. 73-year-old male who has now been in the hospital for 70 days. The patient is seen again today in room 253. Since yesterday, the patient has been on pressor support of 14, CPAP of 5. FiO2 is 30%. He did not need to go back on pressure assist control ventilation. He is currently on Precedex and 0.9 mcg/kg/h, TPN at 90 cc an hour, saline at KVO. The patient had a pretty uneventful night. He does have some episodes of coughing. We did add some aerosolized lidocaine, which seemed to help initially, but may be more recently not so much. White count 16.6, hemoglobin 7.8, macro 24.4, and platelet count normal. Sodium 129, potassium 3.7, chlorides 102, CO2 21, BUN 27, creatinine 0.59. Glucose 168. Magnesium 1.4. Most recent sputum culture showed evidence of Pseudomonas aeruginosa. No chest x-ray today. The patient is currently on tobramycin, ciprofloxacin, and fluconazole, as per infectious diseases. Progress note dated January 22, 2024. 73-year-old male who is now been here for 71 days. The patient is seen today in room 253. He continues on pressure support of 14, CPAP of 5. The patient's FiO2 is 30%. He is getting TPN at 90 cc an hour, saline at 50 cc an hour, and Precedex at 0.5 mcg/kg/h. He continues on ciprofloxacin, tobramycin, and fluconazole. We will attempt some trach collar today. White count 14.9, hemoglobin 7.9, hematocrit 24.6, platelet count 399,000. Sodium 130, potassium 3.6, chlorides 104, CO2 22, BUN 25, creatinine 0.64. Glucose is 180. Albumin i s 2.3. Progress note dated January 23, 2024. 73-year-old male seen today in room 253. Since about noon yesterday, the patient's been on trach collar 40%. Prior to that, the patient was on pressor support and CPAP. The patient continues on TPN at 90 cc an hour, saline at 50 cc an hour. The patient continues on ciprofloxacin, and fluconazole. In addition, the patient is on Precedex 0.5 mcg/kg/h. We are hoping to get the patient to long-term acute care today. Labs today include a sodium 131, potassium 3.7, chlorides 102, CO2 23, BUN 22, creatinine 0.67. Glucose is 164. Calcium 7.6. Albumin 2.5. Most recent sputum sample from January 06, shows evidence of Pseudomonas aeruginosa. No chest x-ray today. Progress note dated January 24, 2024. 73-year-old male seen today in room 253. The patient has been on 40% trach collar, for more than 2 days. The patient continues on TPN at 90 cc an hour, saline at 50 cc an hour. Precedex has been weaned off. The patient continues on alternative medications such as Ativan and Dilaudid. Current labs include a white count 15.9, hemoglobin 7.8, hematocrit 24.4, and a normal platelet count. Sodium 130, potassium 3.5, chlorides 106, CO2 23, BUN 21, creatinine 0.67. Albumin is 2.3. Progress note dated January 25, 2024. 73-year-old male who is now been in the hospital for 72 days. The patient is currently on 40% trach collar. He has been on trach collar for about 3 days. He is getting TPN at 90 cc an hour, saline at 50 cc an hour. According to his , he has been denied transfer to long-term acute care facility. He may end up in a local detention. Current labs include a white count 20.1, hemoglobin 8.3, hematocrit 26.7, and a normal platelet count. Sodium 131, potassium 3.8, chlorides 106, CO2 20, BUN 21, and creatinine 0.66. Glucose is 139. Calcium is 7.3. Chest x-ray shows bilateral airspace disease, which is improved. CT scan of the chest abdomen pelvis shows decreasing of the hydropneumothorax in the right lung, bibasilar infiltrates, dilated small bowel loops, possible acute diverticulitis of the sigmoid colon, moderate anasarca, and the presence of a peritoneal dialysis catheter and small bowel drainage tube. Progress note dated January 26, 2024. 73-year-old male who is now been here in the hospital for 75 days. The patient continues on 40% trach collar. He has been on trach collar for about 3 days now. He is also receiving TPN at 90 cc an hour, saline at 50 cc an hour. Apparently, his admission to long-term acute care, and to the detention, was denied. Current labs include a white count 16.3, hemoglobin 7.2, hematocrit 22, platelet count 403,000. Sodium 130, potassium 3.4, chlorides 104, CO2 25, BUN 19, creatinine 0.66. Glucose 148. Calcium 7.1. Patient was evaluated today on 02/05/2024, remains in ICU, intubated mechanically ventilated on assist-control rate of 20 tidal volume 620 FiO2 40% PEEP of 5 ABG showed a pO2 of 91 pCO2 40 pH of 7.50 patient developed bowel perforation and pneumoperitoneum day before yesterday, and he is on antibiotics, surgery is not planning any surgical intervention because of high risk. Patient continues to have distended abdomen patient remains on propofol at 45 mcg/kg/min he is also on TPN at 45 mL/h. Today I went ahead and placed a right radial arterial line, patient is getting blood draws and prefers to have it done from the arterial line instead of poking him on a daily basis. X-ray continues show similar findings compared to chest x-ray yesterday, continues to have pigtail catheter on the right side with ongoing air leak. Antibiotics arce remains on Zosyn and tobramycin sputum cultures have been growing Pseudomonas aeruginosa and now his abdominal findings are of concerns and the patient has acute pneumoperitoneum. Patient was evaluated today on 02/06/2024, remains in the ICU remains intubated remains ventilated. Patient is on assist-control rate of 20 tidal volume 620 FiO2 40% PEEP of 5 ABG showed a pO2 of 135 pCO2 38 pH of 7.49. Continues to have air leak noted in the chest tube. Chest x-ray is basically about the same continues to have scattered infiltrates left more so than right, pigtail cath eter remains in place, no evidence of pneumothorax noted on the chest x-ray today. WBC is 12.5 hemoglobin is 7.7, basic metabolic profile is normal renal profile is normal bicarb is 28. Patient remains on Zosyn and on tobramycin. Hemoglobin today is 7.7. Patient remains on TPN is at bedside, updated the on his condition and explained to the that his condition is extremely poor, she was expecting to hear from all 3 surgeons who have seen this patient since admission Patient was seen today on 02/07/2024, patient remains about this, he is on assist-control mode of mechanical ventilation, on Precedex, this was started yesterday to replace propofol, patient is arousable, generally weak, follows very simple instructions, a bit lethargic. Patient is on assist-control rate of 20 tidal volume 620 FiO2 35% PEEP of 5 ABG showed a pO2 of 102 pCO2 38 pH of 7.48 hence no changes were made in vent settings his Precedex dose is now 0.6 g/kg/h, remains on antibiotics in the form of Zosyn and tobramycin as per infectious disease on the case, remains on TPN at 45 cc/h today we had a long bleeding with the family and the different consultants on the case, and family was made aware of his poor prognosis and the surgeon made it clear that it is impossible and extremely risky to take him back to surgery and perform exploratory laparotomy he feels that this is potentially disastrous. Hence the patient cannot have surgery and in the meantime we are medically managing knowing that mortality is extremely high either way whether the patient goes to surgery or continue medical therapy I specifically asked the surgeon if he would consider exploratory laparotomy and he clearly stated he would not do so. Because of the high risk and totality. 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 ABG sh owed a pO2 of 93 pCO2 36 pH of 7.47 patient is awake, appropriate, follows instructions, denies being in any pain however his abdominal distention seems to be getting worse, and quite tympanitic large area of air noted in the abdomen based on the chest x-ray itself, hence discussed with the surgeon and agreeable to proceed with CT of the abdomen and pelvis today. although what other findings noted on the CT of the abdomen pelvis according to the surgery will not change our treatment. The would like to know the status of his abdomen at this point could be given a trial of pressure support and CPAP today, his nasogastric tube was apparently pulled out by the patient or coughed out by the patient and will try to establish another nasogastric tube this will be done by Dr. uRiz if she can today is 14.9 hemoglobin 7.5 basic metabolic profile is normal renal profile is normal Symptoms 02/09/2024, remains in the ICU intubated mechanically ventilated on assist-control rate 20 tidal volume 620 FiO2 35% PEEP of 5 ABG showed a pO2 of 70 pCO2 32 pH of 7.51 patient remains on Precedex at 0.8 mcg/kg/h he is also on TPN at 65 mL/h remains on antibiotics in the form of Zosyn and tobramycin yesterday CT of the abdomen continues to show significant pneumoperitoneum, not much of a change compared to his initial CT earlier in the week. Abdomen remains distended and tympanitic. Nasogastric tube was placed yesterday by surgery to help decompression cannot use the tube for feeding. Chest x-ray today is showing worsening infiltrates in the left lower lobe, otherwise the right side remains about the same. He is to have hydropneumothorax and he has a pigtail catheter draining to a Pleur-evac continues to have air leak. The is requesting plans to get him home in the next 24 hours hopefully for palliative care and holistic treatment and I will have social worker delinquency prevention look into the process of hopefully getting him home for palliative care in the next 24 hours if she wishes to proceed family is well aware of his poor prognosis, his condition has been discussed over and over with all family members in the last 3 months malignancy count is up today 19.5 and that is expected considering his abdominal sepsis his hemoglobin is 7.2Basic metabolic profile is normal renal profile remains normal transfer tech Progress note dated February 10, 2024. This is a 73-year-old male who was admitted back on November 12, 2023. He has not been in the hospital for 90 days. He remains on the ventilator, on volume assist-control, rate 20, tidal volume 620, FiO2 40% PEEP of 5. Blood gases show pO2 of 70, pCO2 32, pH is 7.51. Those blood gases were done on February 08. He remains on Precedex at 0.8 mcg/kg/h, TPN at 65 cc an hour, saline at 20 cc an hour. For antibiotics, he continues on tobramycin and Zosyn. No new labs today. Chest x-ray reveals pneumoperitoneum, extensive bilateral airspace consolidations, a tracheostomy tube, and a feeding tube which terminates below the diaphragm. Progress note dated February 11, 2024. 73-year-old male whose been here in the hospital now for 91 days. He was admitted back on November 12, 2023. He remains on the ventilator, with set tings of volume assist-control, rate 20, tidal volume 620, FiO2 40%, PEEP of 8. The patient continues on TPN at 78 cc an hour, and Precedex at 0.8 mcg/kg/h. I did asked the nurses to increase his Dilaudid to 1 mg every 2 hours, and add Haldol 4 mg every 4 hours, as needed. The is adamant that he does not receive Ativan. Current labs critical white count 17.2, hemoglobin 7, hematocrit 22, platelet count 460,000. Previously his hemoglobin was 6.8. Sodium 145, potassium 4.2, chlorides 118, CO2 22, BUN 25, and creatinine 0.67. Calcium is 7.9. Chest x-ray is largely unchanged. Objective - Vital Signs Vital signs: Vital Signs Temp 98.5 F 02/11/24 08:00 Pulse 82 02/11/24 11:00 Resp 26 H 02/11/24 11:00 BP 188/120 02/11/24 11:00 Pulse Ox 96 02/11/24 11:00 FiO2 40 02/11/24 08:37 Intake & Output 02/10/24 02/11/24 02/11/24 18:59 06:59 18:59 Intake Total 7462.120 3089.100 591 Output Total 1050 1445 470 Balance 246.675 -95.900 121 Weight 108.3 kg 105.9 kg Intake: IV 1093 203 413 0.9 Normal Saline @ KVO 135 0 1 Normal Saline Pressure 15 Saline Piperacillin-Tazobactam 3 150 125 100 .375 gm In Sodium Chloride 0.9% 100 ml @ 25 mls/hr IVPB Q8HR [facility] Rx# :[id number] TPN 793 78 312 Intake, IV Titration 138.675 288.100 100 Amount Dexmedetomidine/0.9% NaCl 138.675 288.100 100 (Pmx) 400 mcg In Empty Bag 1 bag @ 0.2 MCG/KG/HR 5.375 mls/hr IV .[id number] [facility] Rx#:[id number] TPN/PPN 65 858 78 TPN 65 858 78 Output: Chest Tube Drainage 0 0 0 Chest Tube Right 0 0 0 Drainage 50 Left Abdomen 50 Urine 1050 1395 470 Other: Voiding Method Indwelling Catheter Indwelling Catheter ABP, PAP, CO, CI - Last Documented Arterial Blood Pressure 183/165 - Exam No acute distress, the patient is currently on dexmedetomidine, and back on the mechanical ventilator. HEENT examination is grossly unremarkable. Neck supple. Full range of motion. No adenopathy thyromegaly or neck vein distention. Midline tracheostomy tube noted. Cardiovascular examination reveals regular rhythm rate. S1-S2 normal. No S3 or S4. No discernible murmur noted. Heart sounds are distant. Lungs reveal mild scattered rhonchi. No wheezes or crackles. Breath sounds equal. Saturations are 95%. Abdomen soft, without bowel sounds. Extremities are intact. No cyanosis clubbing or edema. Skin is without rash or lesion. Neurologic examination is very difficult to assess. - Labs CBC & Chem 7: 02/11/24 10:31 02/11/24 06:03 Labs: Abnormal Lab Results - Last 24 Hours (Table) 02/10/24 02/10/24 02/11/24 Range/Units 12:04 23:56 06:03 WBC 13.5 H (3.8-10.6) k/uL RBC 2.21 L (4.30-5.90) m/uL Hgb 6.8 L* (13.0-17.5) gm/dL Hct 22.0 L (39.0-53.0) % MCHC 30.8 L (31.0-37.0) g/dL RDW 16.2 H (11.5-15.5) % Plt Count (150-450) k/uL Neutrophils # 9.9 H (1.3-7.7) k/uL Chloride (98-107) mmol/L BUN (9-20) mg/dL Glucose (74-99) mg/dL POC Glucose (mg/dL) 186 H 154 H (70-110) mg/dL Calcium (8.4-10.2) mg/dL 02/11/24 02/11/24 02/11/24 Range/Units 06:03 06:03 10:31 WBC 17.2 H (3.8-10.6) k/uL RBC 2.24 L (4.30-5.90) m/uL Hgb 7.0 L (13.0-17.5) gm/dL Hct 22.0 L (39.0-53.0) % MCHC (31.0-37.0) g/dL RDW 16.1 H (11.5-15.5) % Plt Count 460 H (150-450) k/uL Neutrophils # (1.3-7.7) k/uL Chloride 118 H (98-107) mmol/L BUN 25 H (9-20) mg/dL Glucose 205 H (74-99) mg/dL POC Glucose (mg/dL) 222 H (70-110) mg/dL Calcium 7.9 L (8.4-10.2) mg/dL Microbiology - Last 24 Hours (Table) 02/09/24 13:09 Blood Culture - Preliminary Blood 02/09/24 12:30 Blood Culture - Preliminary Blood Assessment and Plan Assessment: Acute hypoxemic respiratory failure with failure to wean from mechanical ventilation, S/P tracheostomy/PEG tube on December 10, 2023. Respiratory failure, requiring reintubation, on November 25, 2023. Acute hypoxic respiratory failure requiring intubation/mechanical ventilation secondary to aspiration during EGD on 11/12/2023. Patient was extubated on 11/14/2023. S/P bowel perforation with pneumoperitoneum. S/P J-tube placement 11/16/2023, which continues to leak. Critical illness polyneuropathy. Septic shock. Acute kidney injury secondary to sepsis, and ATN. Acute bowel obstruction, diagnosed via CT scan, November 24, 2023. Acute aspiration pneumonia. Acute aspiration during upper endoscopy most likely secondary to gastric outlet obstruction secondary to non-Hodgkin's lymphoma. Chronic abdominal pain, secondary to B-cell lymphoma. Unexplained weight loss most likely secondary non-Hodgkin's lymphoma involving the stomach. Paroxysmal atrial fibrillation. Multiple other medical problems and comorbidities. Chronic anemia. Plan: Plan dated November 21, 2023. The patient is seen today in room 517. The patient is on 3 L of oxygen. He continues on Zosyn. Continues on tube feeds. He had a CT scan of the abdomen and pelvis. His respiratory status is improved. We will continue to follow. Prognosis is guarded. Labs, x-rays, medications are reviewed. The patient is apparently scheduled for an outpatient PET scan. Plan dated November 22, 2023. The patient appears very stable. His is in the room with him. Labs, x- rays, and medications are reviewed. The patient continues on Zosyn. Resting room air saturation was 89%. Chest CT, revealed bilateral patchy and basilar infiltrates. We will continue to follow make recommendations along the way. Prognosis is guarded. The patient was diagnosed with a gastric outlet obstruction, secondary to non-Hodgkin's lymphoma. Plan dated November 23, 2023. The patient is seen today in room 517. He is resting comfortably. He continues on saline at 10 cc an hour. He is getting tube feedings with Pivot at 20 cc an hour. He has been weaned down to 2 L of oxygen. He continues on Zosyn. Labs, x-rays, and all medications are reviewed. Prognosis is guarded. We will continue to follow. Plan dated November 24, 2023. The patient will be admitted to the intensive care unit. I believe he deserves to be an ICU patient. I did speak to the surgeon. Labs, x-rays, and medications are reviewed. No additional recommendations are made. Prognosis is guarded. The patient has now been in the hospital for 12 days. We will continue to follow. He continues on Zosyn. Plan dated December 14, 2023. The patient is seen today in room 253. Currently, the patient is on the ventilator. He will have another PSV/CPAP trial. Apparently yesterday, he went for about 2-1/2 hours before he required to be placed back on the ventilator. The patient is getting saline at 10 cc an hour, and Nepro tube feedings at 50 cc an hour, which is goal. The patient had a fever, and will be recultured. In addition, the midline incision in the abdomen, shows some evidence of purulence, and will have a surgeon, take a look at that. Currently, the patient is not on any antibiotics. We will recheck a procalcitonin level. One of the family members was in the room, and was updated. Plan dated December 15, 2023. The patient actually spent about 6 hours on pressor support yesterday. The patient will have another spontaneous breathing trial today. The patient remains off of all sedation. He is getting Ativan and Dilaudid as needed. He is receiving tube feedings at goal. Labs, x-rays, and medications are reviewed. The repeat procalcitonin level was elevated at 1.92. We added Zosyn empirically. He had pancultures done yesterday. Labs, x-rays, and all medications are reviewed. Prognosis is guarded. An update was given to the daughter and to the right. Dictation was produced using [email or web address] software. Please excuse any grammatical, word or spelling errors. Plan dated December 30, 2023. The patient is seen today in room 253. The patient has now been in the hospital for 48 days. He was admitted way back on November 11. The patient currently is not ready to be weaned, given his high respiratory rate, and high minute volume. The patient is converted back to volume assist-control. In addition, the patient continues on Zerbaxa, Eraxis, and daptomycin, because of recent infections, including Pseudomonas, and Citrobacter, as well as Staphylococcus. Labs, x-rays, and medications are reviewed. The patient will continue on a small dose of propofol, Dilaudid as needed, and Ativan. Dexmedetomidine which is currently running was to be discontinued. Additional recommendations and suggestions are forthcoming. Prognosis is poor in my opinion. The patient remains a full code. The remains hopeful. Dictation was produced using [email or web address] software. Please excuse any grammatical, word or spelling errors. Plan dated December 31, 2023. The patient is seen today in room 253. Family members are at the bedside. After observing the patient on the ventilator, for period of time, it was clear to me, the patient was not synchronous with the ventilator. For that reason, we switched from volume assist-control, to pressure regulated volume control or VC plus. The patient had a inspiratory time of 0.8 seconds, and a targeted tidal volume of 450 cc. Everything else stayed the same. After switching, the patient's respiratory rate came down, as did his minute volume. He appeared much more comfortable. Labs, x-rays, medications are reviewed. The patient continues on Zerbaxa, Eraxis, and daptomycin. We will continue to follow. Prognosis is guarded. No additional recommendations are made. The patient is on propofol at 40 mcg/kg/min. I have asked the nurses to use both Ativan every 6 hours, and Dilaudid every 2 hours as needed, to see if we can get him on a small dose of propofol so that we can send the patient to long-term acute care facility. Prognosis is guarded. Dictation was produced using [email or web address] software. Please excuse any grammatical, word or spelling errors. Plan dated January 01, 2024. The patient is seen today in room 253. I had a long conversation with the patient's family yesterday. It was encouraged, by the primary service, Dr. Rowe. Dr. Rowe also talked to the family about CODE STATUS, and the possi bility of a palliative care consult or hospice consultation. The patient is chronically and critically ill, but stable. The patient remains on the mechanical ventilator, and is not able to be weaned at this time. Previous attempts at weaning, has caused significant increases in respiratory rate, significant increases in minute volume, and disruptions of his vital signs. The patient continues on Zerbaxa, daptomycin, and Eraxis. The patient is on a relatively smaller dose of propofol at 15 mcg/kg/min. I have encouraged the nurse to wean that down even further. In addition to propofol, the patient is receiving Ativan, and Dilaudid as needed. Labs, x-rays, medications are reviewed. The patient could be considered for possible discharge to long-term acute care facility or select specialty. Plan dated January 02, 2024. I have ongoing discussions with the family. The patient is doing very poorly in my opinion, and is currently not weanable. The patient, could be transferred to a long-term acute care facility or specialized nursing facility. We are attempting to get his propofol dose down to a reasonable level. I did asked the nurses to make sure that the patient got his Dilaudid, and Ativan, as scheduled medications. The patient blood gases are excellent. pO2 is 90, pCO2 is 34, pH is 7.40. The patient remains on pressure regulated volume control modality of ventilation. Labs, x-rays, and all medications are reviewed. The patient is overall prognosis remains poor. The patient remains a full code patient. I did have a long talk with the patient's just a few days ago. Plan dated January 03, 2024. The patient is seen again in room 253. The , and one of the family members at the bedside. The patient continues on mechanical ventilation, and at this time, cannot be weaned. The patient is getting TPN at 90 cc an hour, propofol at 15 mcg/kg/min. The patient is receiving saline at 10 cc an hour. We were in contact with the infectious disease doctor. Daptomycin and Eraxis were discontinued. The patient is on day #6 of 10, on Zerbaxa. Metoprolol and midodrine were discontinued from the [facility]. The patient's insurance denied transfer to a long-term acute care facility twice now. Labs, x-rays, medications are reviewed. The patient is overall prognosis is very poor. Today's peak airway pressure is 19 cm of water. The Plateau pressure is 11 cm of water. We will continue to follow the patient, make recommendations along the way. I have had ongoing discussions with the patient's . Plan dated January 04, 2024. The patient is seen in room 253. The and daughter are in the room with the patient. She apparently did call [facility] yesterday, to see if they would except her . They apparently said that they had no beds, and did not currently except him. The patient continues on the mechanical ventilato r. The patient's antibiotics have been pared down, to only Zerbaxa for another 3 to 4 days. The patient is down to propofol at 10 mcg/kg/min, TPN at 90 cc an hour, and saline at 10 cc an hour. The patient remains on VC plus modality of ventilation. Blood gases show pO2 of 81, pCO2 of 35, pH is 7.44. Labs, x-rays, medications are reviewed. Prognosis is guarded. We will continue to follow. Plan dated January 05, 2024. The patient will be given a spontaneous breathing trial, with pressure support of 10, CPAP of 5. I have asked the respiratory therapist to watch the patient carefully. Should he demonstrate any worsening respiratory status, high respiratory rate, low tidal volumes, high heart rate, diaphoresis, changes in blood pressure, or anything that would suggest fatigue, she should switch her back to the former modality. Labs, x-rays, medications are reviewed. I did spend some time talking to the patient's . I gave her an update. Apparently the patient's did call [facility], to see if he could be transferred. No beds were available. Also, he has been denied transfer to long-term acute care, by his insurance company, twice. Plan dated January 20, 2024. The patient was on pressor support and CPAP, for about 20 hours yesterday. The patient was placed back on pressor support and CPAP, this morning. When not on pressor support and CPAP, the patient is maintained on pressure assist control, with inspiratory pressure of 15 cm of water, inspiratory time 0.8 seconds, FiO2 30%, rate 20, PEEP of 5. Blood gases were not done. TPN is at 90 cc an hour, saline's at 50 cc an hour and Precedex is 1 mcg/kg/h. The patient remains on ciprofloxacin, tobramycin, Diflucan. Clinically, the patient appears to be tolerating weaning trials reasonably well. We are hoping to have the patient transferred to long-term acute care tomorrow. Additional recommendations and suggestions are forthcoming. Prognosis is guarded. Labs, x-rays, and all medi cations are reviewed. Dictation was produced using [employer]com[employer] software. Please excuse any gr ammatical, word or spelling errors. Plan dated January 21, 2024. The patient is seen today in room 253. Family members are at the bedside as they have been all along during this hospitalization. The patient continues on pressure support of 14, and CPAP of 5, and an FiO2 of 30%. He has been on those settings, since yesterday. Clinically, the patient appears reasonably stable. The patient is currently on Precedex 0.9 mcg/kg/h, and TPN at 90 cc an hour. Labs, x-rays, and all medications are reviewed. We are hoping to be able to get the patient discharged to long-term acute care facility. We will continue to follow make recommendations. In terms of antibiotics, the patient is on cipr ofloxacin, tobramycin, and Diflucan. Prognosis is guarded. Plan dated January 22, 2024. The patient is again seen today in room 253. He has not been in the hospital for 71 days. The patient continues on pressure support of 14, CPAP of 5, and 30%. He has been on that for more than a day and a half. He continues on TPN at 90 cc an hour, saline at 50 cc an hour. The patient continues on cipr ofloxacin, tobramycin, and fluconazole. He is also on Precedex 0.5 mcg/kg/h. We will attempt a trach collar today. We are waiting for authorization from the long-term acute care facility. Labs, x-rays, and all medications are reviewed. Prognosis is guarded. Dictation was produced using [employer] dictation software. Please excuse any grammatical, word or spelling errors. Plan dated January 23, 2024. The patient is seen today in room 253. The patient is currently on a 40% trach collar. He has been on trach collar since about noon yesterday. Prior to that he was on pressor support and CPAP. He continues on TPN at 90 cc an hour, saline at 50 cc an hour. The patient also continues on Precedex 0.5 mcg/kg/h. Antibiotic arce, the patient is on ciprofloxacin, and fluconazole. We are h oping to get the patient to long-term acute care today. I have asked the nurses to try using Ativan, Dilaudid, and Haldol, and small doses, to get the patient off of Precedex. I did speak to the patient's . I gave her an update. Additional recommendations and suggestions are forthcoming. Dictation was produced using [employer] software. Please excuse any grammatical, word or spelling errors. Plan dated January 24, 2024. The patient is seen today in room 253. The patient continues on 40% trach collar. The patient is getting TPN at 90 cc an hour, saline at 50 cc an hour. The Precedex has been weaned off. He continues on fluconazole, and ciprofloxacin. Tobramycin has been discontinued. Labs, x-rays, and all medications are reviewed. We will continue to follow make recommendations. The patient will likely be discharged either to long-term acute care facility, or on e of the local nursing homes. Prognosis is certainly guarded. Plan dated January 25, 2024. The patient is again seen today in room 253. He has not been in the hospital for 72 days. Has been on trach collar 40%, for 3 days. He is getting TPN at 90 cc an hour, saline at 50 cc an hour. The patient apparently was denied admission to long-term acute care. He may end up at a local detention. Clinically, he is doing reasonably stable. He continues on ciprofloxacin, and fluconazole as per infectious diseases. The results of his chest x-ray, CT scan of the chest abdomen and pelvis, are reviewed. Prognosis is guarded. Dictation was produced using [employer] software. Please excuse any grammatical, word or spelling errors. Plan dated January 26, 2024. The patient is seen today in room 253. The patient continues on a trach collar, at 40%. The patient is receiving TPN at 90 cc an hour, and saline at 50 cc an hour. Labs, x-rays, and all medications are reviewed. The patient continues on ciprofloxacin, and fluconazole. The patient is stable to be transferred out to the 3 S. unit. I am not sure that there is a bed available for him. Apparently, he was refused admission to long-term acute care, and one of the local nursing homes. We will continue to follow make recommendations. Labs, x- rays, and all medications are reviewed. Plan dated February 10, 2024. I feel the patients family is being very unrealistic. The wants to take the patient home on the mechanical ventilator. The home care team, feels like his current needs, are more than they can provide. Labs, x-rays, and all medications are reviewed. The patient remains on the ventilator. He is on volume assist-control, tidal volume 620, rate 20, FiO2 40%, PEEP of 5. The patient remains on TPN at 65 cc an hour, and Precedex 0.8 mcg/kg/h. The patient continues on tobramycin and Zosyn. Labs, x-rays, and all medications are reviewed. When I was in the room today having a conversation with the , she became very unreasonable, and almost hysterical. She wants to take the patient home on the ventilator, with palliative care. This is very unlikely to happen. Plan dated February 11, 2024. The patient is seen today in room 253. The is adamant that the patient not receive Ativan for sedation. I am trying to get him off the dexmedetomidine so we can send him home. She also requested the patient be given a trial of CPAP or BiPAP. I do not think the patient will tolerate it, but we will try it anyway. The patient continues on TPN at 70 cc an hour. The patient is on Pr ecedex at 0.8 mcg/kg/h. No blood gas today. I have asked the nurses to increase the Dilaudid to 1 mg every 2 hours, and Haldol for milligrams every 4 hours, as needed. Labs, x-rays, and all medications are reviewed. Prognosis is poor. The patient is now a DO NOT RESUSCITATE again. The family keeps on going back and forth about CODE STATUS. Prognosis is extremely poor. Time with Patient: Greater than 30
[2024-02-11] MEDS ORDERED: MORPHINE SULFATE 2 MG/ML SYRINGE IVP PRN (11:39)
[2024-02-11] MEDS: SCOPOLAMINE 1 MG/72 HR PATCH TRANSDERM SCH (11:50)
[2024-02-11] MEDS: MORPHINE SULFATE 4 MG/ML SYRINGE IVP PRN (11:54)
[2024-02-11 12:05] LABS: Glucose,Whole Blood 228 mg/dL (70-110)
--- NOTE | 2024-02-11 12:49 | XR ---
EXAMINATION TYPE: XR chest 1V portable DATE OF EXAM: 02/11/2024 4:51 AM COMPARISON: 02/09/2024 CLINICAL INDICATION: Male, 73 years old with history of mechanical ventilation, TECHNIQUE: XR chest 1V portable view(s) obtained. FINDINGS: The heart size is normal. The pulmonary vasculature is normal. Diffuse increased lung markings are present on the left. Correlate for pneumonia. The previous locula gage changes at the right lung base appears stable. Drainage catheter remains present at the right maura g base. Tracheostomy tube has its tip in the midline. Left-sided PICC line tip is within this distal superior vena cava region. Right-sided port tip within the deep right atrium. Nasogastric tube transverses th e thorax with tip in the left upper quadrant of the abdomen. IMPRESSION: 1. Diffuse increased lung markings to the left lung. Correlate for pneumonia. Findings are similar to comparison. 2. Stable appearance of right lung base changes. Patient's catheter remains in position. 3. Multiple lines and catheters discussed above [facility], , 02/11/2024 12:47 PM
[2024-02-11 13:04] VITALS: TEMP 97.6
[2024-02-11] MEDS: SODIUM ACETATE IV SCH ×2 (14:18)
[2024-02-11] MEDS: POTASSIUM PHOSPHATE IV SCH ×2 (14:18)
[2024-02-11] MEDS: MAGNESIUM SULFATE IV SCH ×2 (14:18)
[2024-02-11] MEDS: [UNRECOGNIZED DRUG - OTHER] IV SCH (14:18)
--- NOTE | 2024-02-11 14:31 | P.PN ---
Subjective Progress Note Date: 02/11/24 Principal diagnosis: Reason for follow-up is pneumonia and diverticulitis Patient is 73-year-old with male initial presentation to the hospital on 11/12/2023 after the patient did have aspiration while undergoing elective endoscopy, diagnosed with a non-Hodgkin lymphoma subsequently did have exploratory laparotomy for perforated small bowel, abdominal washout and feeding jejunostomy tube patient did require dialysis catheter placement for dialysis during this hospital stay which was subsequently discontinued, and tracheostomy for respiratory failure. On today's evaluation that is 02/11/2024, Patient is afebrile this morning patient continues to be on the ventilator through the trach FiO2 is currently stable at 40% the patient is hemodynamically stable not requiring any pressor support no vomiting or diarrhea has been reported. Patient did have a blood draw this morning x 2 did have hemoglobin of 6.8 repeat is 7.0 white count of 17.2 creatinine 0.67 Objective - Vital Signs Vital signs: Vital Signs Temp 98.5 F 02/11/24 08:00 Pulse 88 02/11/24 12:10 Resp 26 H 02/11/24 11:00 BP 188/120 02/11/24 11:00 Pulse Ox 96 02/11/24 11:00 FiO2 40 02/11/24 12:00 Intake & Output 02/10/24 02/11/24 02/11/24 18:59 06:59 18:59 Intake Total 7102.120 3836.100 591 Output Total 1050 1445 470 Balance 246.675 -95.900 121 Weight 108.3 kg 105.9 kg Intake: IV 1093 203 413 0.9 Normal Saline @ KVO 135 0 1 Normal Saline Pressure 15 Saline Piperacillin-Tazobactam 3 150 125 100 .375 gm In Sodium Chloride 0.9% 100 ml @ 25 mls/hr IVPB Q8HR [facility] Rx# :[id number] TPN 793 78 312 Intake, IV Titration 138.675 288.100 100 Amount Dexmedetomidine/0.9% NaCl 138.675 288.100 100 (Pmx) 400 mcg In Empty Bag 1 bag @ 0.2 MCG/KG/HR 5.375 mls/hr IV .[id number] [facility] Rx#:[id number] TPN/PPN 65 858 78 TPN 65 858 78 Output: Chest Tube Drainage 0 0 0 Chest Tube Right 0 0 0 Drainage 50 Left Abdomen 50 Urine 1050 1395 470 Other: Voiding Method Indwelling Catheter Indwelling Catheter Indwelling Catheter ABP, PAP, CO, CI - Last Documented Arterial Blood Pressure 183/165 - Exam GENERAL DESCRIPTION: An elderly male intubated with trach RESPIRATORY SYSTEM: Unlabored breathing , coarse breath sounds anteriorly HEART: S1 S2 regular rate and rhythm , ABDOMEN: Soft , abdominal distention and tenderness EXTREMITIES: No edema feet - Labs CBC & Chem 7: 02/11/24 10:31 02/11/24 06:03 Labs: Abnormal Lab Results - Last 24 Hours (Table) 02/10/24 02/11/24 02/11/24 Range/Units 23:56 06:03 06:03 WBC 13.5 H (3.8-10.6) k/uL RBC 2.21 L (4.30-5.90) m/uL Hgb 6.8 L* (13.0-17.5) gm/dL Hct 22.0 L (39.0-53.0) % MCHC 30.8 L (31.0-37.0) g/dL RDW 16.2 H (11.5-15.5) % Plt Count (150-450) k/uL Neutrophils # 9.9 H (1.3-7.7) k/uL Chloride 118 H (98-107) mmol/L BUN 25 H (9-20) mg/dL Glucose 205 H (74-99) mg/dL POC Glucose (mg/dL) 154 H (70-110) mg/dL Calcium 7.9 L (8.4-10.2) mg/dL 02/11/24 02/11/24 02/11/24 Range/Units 06:03 10:31 12:03 WBC 17.2 H (3.8-10.6) k/uL RBC 2.24 L (4.30-5.90) m/uL Hgb 7.0 L (13.0-17.5) gm/dL Hct 22.0 L (39.0-53.0) % MCHC (31.0-37.0) g/dL RDW 16.1 H (11.5-15.5) % Plt Count 460 H (150-450) k/uL Neutrophils # (1.3-7.7) k/uL Chloride (98-107) mmol/L BUN (9-20) mg/dL Glucose (74-99) mg/dL POC Glucose (mg/dL) 222 H 228 H (70-110) mg/dL Calcium (8.4-10.2) mg/dL Microbiology - Last 24 Hours (Table) 02/09/24 13:09 Blood Culture - Preliminary Blood 02/09/24 12:30 Blood Culture - Preliminary Blood Assessment and Plan (1) Sepsis Current Visit: Yes Status: Acute Code(s): A41.9 - SEPSIS, UNSPECIFIED ORGANISM SNOMED Code(s): 08229981 (2) Pneumonia Current Visit: Yes Status: Acute Code(s): J18.9 - PNEUMONIA, UNSPECIFIED ORGANISM SNOMED Code(s): 869011077 (3) Bacteremia Current Visit: Yes Status: Acute Code(s): R78.81 - BACTEREMIA SNOMED Code(s): 9191325 (4) Peritonitis Current Visit: Yes Status: Acute Code(s): K65.9 - PERITONITIS, UNSPECIFIED SNOMED Code(s): 76530598 Plan: 1 the patient did have a new fever also noticed to have worsening of his respiratory status concerning for pneumonia 2repeat blood culture have been negative sputum culture from 1127 is growing drug-resistant Pseudomonas aeruginosa sensitive only to tobramycin amikacin intermediate sensitive to Zosyn patient also have a bronchoscopy on 1128 that specimen is growing Pseudomonas with multidrug resistant pattern and intermediate to Zosyn sensitive to amikacin and tobramycin 3patient did have CT abdominal pelvis with evidence of large pneumoperitoneum concerning for possible large/small bowel perforation patient has been evaluated by Dr. subramanian for a second opinion from surgical standpoint and has been considered high risk for any surgical intervention, patient repeat CT abdominal pelvis did not show any improvement 4patient did have a new fever and also noted to have worsening of the white count blood cultures will be obtained from the PICC line peripherally and if any further fever or further worsening of the white count will need to add gram- positive coverage 5patient family has refused lab draw yesterday morning including tobramycin trough as the tobramycin cannot be dosed appropriately that was discontinued patient is currently on Zosyn as the patient is going hospice this afternoon as reported by the nursing staff antibiotics can be safely discontinued Dictation was produced using [employer] dictation software. please excuse any gramm atical, word or spelling errors. Time with Patient: Less than 30
[2024-02-11 15:27] VITALS: BP 156/105; PULSE 78; RESP 27
--- NOTE | 2024-02-11 16:39 | P.DS ---
Providers Date of admission: 11/12/23 09:12 Expected date of discharge: 02/11/24 Attending physician: Michael Rowe Consults: 11/12/23 11:36 Consult Physician Urgent Consulting Provider: Thalia Russ Consult Reason/Comments: ICU management Do you want consulting provider notified?: Already Contacted 11/13/23 21:01 Consult Physician Routine Consulting Provider: Kevin Montoya Consult Reason/Comments: CRISTAL Do you want consulting provider notified?: Yes 11/14/23 03:08 Consult Physician Stat Consulting Provider: Hi Cheng Consult Reason/Comments: New onset A-fib RVR Do you want consulting provider notified?: Yes 11/15/23 06:57 Consult Physician Routine Consulting Provider: Samuel Reyes Consult Reason/Comments: new dx lymphoma Do you want consulting provider notified?: Yes Consult Physician Urgent Consulting Provider: Zachary Alford Consult Reason/Comments: Jtube, pyloric stenosis, new dx lymphoma Do you want consulting provider notified?: Yes 11/29/23 10:03 Consult Physician Urgent Consulting Provider: Bryson Bobby Consult Reason/Comments: hemodialysis catheter Do you want consulting provider notified?: Yes 12/07/23 09:13 Consult Physician Routine Consulting Provider: Akila Hernández Consult Reason/Comments: AMS, unresponsive Do you want consulting provider notified?: Yes 12/16/23 07:47 Consult Physician Urgent Consulting Provider: Erica Gomez Consult Reason/Comments: positive blood culture Do you want consulting provider notified?: Yes Primary care physician: Patricia Deal [facility] Course: Chief Complaint: On the ventilator This is a 73-year-old patient, follows with Dr. Patricia Deal. Patient was seen this morning in the ICU. Patient's and daughter at the bedside. History obtained predominantly by the . Patient been having trouble with his stomach symptoms for close to 8 months. Patient underwent EGD by Dr. Sahara Cheng yesterday. Patient was found to have ulcerated around the antrum and obstruction to the pylorus. A lot of retained food was found. Patient aspirated. Had to be intubated and brought to the ICU. On a Levophed drip. FiO2 50 and a PEEP of 6. Patient had been losing weight lost about 25 pounds. Previously has a history of mitral valve prolapse. November 13: ICU. Patient remains on Precedex drip and propofol drip. Did not do well attempted extubation yesterday. Patient been off Levophed. NG tube to suction. Spoke to patient's and son at the bedside. Biopsy results awaited. Hemoglobin dropped to 6.9 this morning. Get a unit of blood. November 14: ICU. Up in a chair. Extubated yesterday. NG tube to suction. at the bedside. 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 Oncology was consulted. They have ordered a port. Results discussed with Dr. Sahara Cheng. General surgery was consulted for J-tube placement. Discussed with at the bedside. Patient getting IV fluids, IV Zosyn,. Patient has been on IV amiodarone for A-fib-back in sinus rhythm. Multiple PACs. Did receive unit of blood yesterday. Also IV ferric gluconate. November 15: ICU. Patient earlier today underwent jejunostomy tube placement and a port placement. Patient awake. Answering questions. NG tube to suction present. Updated patient's . Patient remains on IV amiodarone and IV Zosyn. November 16: ICU. Up in the chair. NG tube present but not to suction. Trickle feeding through the jejunostomy tube should be started today. Dietitian has been on board. IV Zosyn to continue. Patient's and his sister at the bedside. Discussed. Also spoke with Dr. Serna. Given patient has no other predisposing cardiac factors for the A-fib except acute illness. His LV functio n is normal. Left atrium is normal. He has already been loaded with IV amiodarone. Will switch him to oral Lopressor 12.5 twice daily. Hence will DC amiodarone. Patient yesterday had wheezing was put on bronchodilators steroids per pulmonary. November 17: Propped up in bed. NG tube was discontinued. Sinus rhythm. Remains NPO. Getting G-tube feeding at 40 cc an hour. Dietitian following. Get arrangements done for DC home tomorrow including tube feeding. Increase activity discussed with patient and elder daughter at the bedside. Still requiring oxygen. Incentive spirometry. November 18: Patient up in recliner. Earlier today spoke to social work instructor David. Informed patient is rather weak and will be going to the [facility]. Looking at authorization. Denae came to the room and spoke to patient his and his daughter. They are very keen to take the patient home as 3 daughters all nurses and they will take care of him at home. Patient earlier today to abdominal cramping and some loose stools.'s tube feeding was held. Told the nurse to start back at the rate of 40 cc an hour. He was before the getting it at 55 cc an hour. Incentive spirometry was again emphasized. Patient remains on 4 L of oxygen. November 19: I saw the patient this morning. Hence I am in the evening. Morning was sitting with his sons. Has some edema. Lungs had crackles I gave him 40 mg of Lasix. He did make good urine. Tube feeding was held from the previous evening of because of abdominal cramping. Acute abdominal series showed nonspecific bowel gas pattern and SBO to be ruled out. Family and patient was updated. Told him discharge will depend on day by day. Later this afternoon CT scanAnd abdomen pelvis done. Showed small bowel to be 3 point centimeter dilated. Some anasarca. Gastric findings. Gallstones. Later spoke to Dr. Irby from general surgery. They will further review and decide about further plan of action. Will give further dose of IV Lasix because of fluid overload from likely hypoalbuminemia and IV fluids previously received. Patient may take his pills by mouth. Total time spent today about 1 hour with over 40 minutes of discussion. Patient did state his breathing is better after Lasix this morning. November 20: Saw the patient this morning. was present. Patient received 2 more doses of Lasix. Diuresed well. Breathing much better. Lungs are sounding better. Discussed with Dr. Zepeda other surgeon. He is taking 3 cc out of the balloon and the gastrostomy tube. Started trickle feeding at 5 cc an hour. Will see how this does. Later in the day ran into the and the daughter again. Did update them on the same. Dilaudid was discontinued yesterday but morphine was ordered by surgery for patient having pain. Concerns about GI issues with that we will DC the morphine. As family does not want the same. November 21: Patient reclining bed. Tired. Several family members at the bedside. Including his and eldest daughter. Patient started on trickle feed yesterday at 5 cc an hour. This morning he has been on 10 cc an hour. Still having some loose stools. C. difficile was ordered. Patient on 2 L of nasal cannula. Has diuresed well. Will give an additional dose of Lasix today. If C. difficile is negative and the diarrhea is from the tube feedings we may have to use a fecal management system to keep him comfortable. Otherwise patient remains NPO. Dietitian is following the patient. Care was discussed length with patient the and daughter at the bedside. Questions answered. Liquid Tylenol has been added for abdominal pain. Avoid narcotics. Elevated white count likely from Solu-Medrol 11/23/2023--patient was feeling better today. Multiple family member at bedside. No issues overnight. Normal saline at 10 cc an hour, tube feeding at 20 cc an hour, remains on Zosyn, on 3 L oxygen. Afebrile. Heart rate 62, respiratory rate 16, blood pressure 114/67, saturating 91% on 3 L. WBCs 14.5, 9.7 hemoglobin. Platelet 242. BMP is unremarkable. Pulmonary and general surgery following. General surgery recommended to continue tube feeds at 20 cc/h. 11/24/2023--patient reported significant abdominal discomfort, also noted to have leak around G-tube. General surgery is following, evaluated the patient at bedside, adjusted tube feeds. Also reported having diarrhea, on 2 L oxygen, went up to 5 L. Blood pressure was low, 500 mL fluid bolus with close monitoring of respiratory status ordered. Currently on DuoNebs, Solu-Medrol, will continue Zosyn. Chest x-ray showed a left lower lobe infiltrate. Abdominal x-ray showed multiple air-fluid levels. CT abdomen showed multiple dilated small bowel loops, consistent with obstruction, pneumoperitoneum, cholelithiasis and ascites. WBCs 14.1, platelet 255, hemoglobin 8.9. NG tube in place. Family at bedside. patient transferred to SICU for close monitoring. 11/25/23--patient is currently in the ICU, required Levophed overnight due to low blood pressure, low urine output with creatinine trending up. Nephrology following. Accounts Receivable Clerk also following. Patient remains n.p.o., NG tube in place, following NG tube insertion patient had total of 2 L output, J-tube was draining approximately 200 cc over last 8 hours, continues to have abdominal pain and abdominal tenderness. Patient on IV fluids. Currently on 4 L oxygen. WBCs 8.2, hemoglobin 12.3, platelet 188. Chest x-ray earlier today showed right sided port and a stable left lung airspace disease, NG tube in place. Patient currently on Zosyn, on IV Dilaudid for pain control, on IV Solu-Medrol. General surgery planning for OR today, started on TPN. 11/26/23--patient was seen and examined today. Patient is currently sedated, intubated on mechanical ventilation. Family at bedside. Patient underwent ex lap, abdominal washout, small bowel resection with new feeding jejunostomy tube placement yesterday, small bowel was noted to be perforated with significant contamination of abdominal cavity. Patient is currently on vancomycin and Zosyn. Creatinine went up to 2.85, nephrology following, recommended to continue IV fluids, avoid nephrotoxin Preserved EF on echocardiogram.. Patient currently on Levophed, vasopressin in the ICU for close monitoring. Patient is afebrile, heart rate 122, blood pressure 129/76, currently on mechanical ventilation, sedated. November 26: ICU. Intubated. FiO2 60 and a PEEP of 5. Drips include IV amiodarone. Heart rate was up early did get fired microgram of IV digoxin and 2.5 mg of IV Lopressor. Did drop her blood pressure bit. Urine output was low. Received 80 mg of IV Lasix. Ahmet to 150 cc. Other drips include IV propofol, vasopressin, Levophed. TPN was started yesterday. Antibiotics include IV Zosyn and vancomycin. Patient has a J-tube to drainage to gravity. Spoke to patient's younger daughter and at the bedside. Prognosis guarded. Continue current treatment plan. Chest x-ray shows right lower lobe consolidation. Small pleural effusion. November 27: ICU. Intubated. FiO2 55 and a PEEP of 5. Antibiotics include IV vancomycin. Drips include Levophed at a small dose, IV vasopressin, propofol, amiodarone. Patient converted to sinus rhythm this morning. Getting TPN and normal saline at 75 cc an hour. Urine output about 25 cc an hour. RAYA drain put out about 260 cc last 12 hours that is last shift production supervisor. NG tube with bilious output. And also GI J-tube output to gravity. Spoke to patient's and daughter at the bedside. They understand patient still not out of the kee. Platelets have dropped-therefore probably Zosyn stopped. November 28: ICU. Intubated. FiO2 55 and a PEEP of 5. Patient is in sinus rhythm. Seen this morning. Due for dialysis catheter this afternoon. Urine output about 15 to 20 cc an hour. Patient is on IV Lasix 80 mg every 12. Saline is KVO. Drips include IV propofol vasopressin. Patient having significant output through the RAYA drain and the jejunostomy tube to drainage. Creatinine had been getting worse. Patient's at the bedside. Understands patient's remains critically ill. Hemoglobin is down to 7. Given that patient's pain hypotensive, and on vasopressin we will give a unit of blood with dialysis. Getting TPN antibiotic changed to IV meropenem November 29: ICU. Intubated. FiO2 55 and a PEEP of 5. Remains in sinus rhythm. Getting TPN. Dialyzed yesterday and this morning. About 1000 cc removed. Urine output about 50 cc an hour. Patient is on IV propofol. Off vasopressin. Still having significant output through the RAYA drain and jejunostomy tube. Patient received a second unit of blood yesterday. Patient's and daughter at the bedside. I did discuss guarded prognosis. Did asked them to revisit CODE STATUS.. Getting IV meropenem. November 30: ICU. Intubated. Did get a sedation holiday t today. Back on propofol. Getting TPN. Still getting IV Lasix. Fair urine output. Jejunostomy tube in last 8 hours was about 30 cc output. RAYA drain in the 8 hours had about 180 cc output. Telemetry shows sinus rhythm. NG tube has low intermittent suction with negative output. On the vent with FiO2 40 and a PEEP of 5. No hemodialysis today. Discussed with the and eldest daughter at the bedside. IV meropenem-patient's sputum had grown Citrobacter freundii and Pseudomonas aeruginosa. December 01: ICU. Intubated. Jejunostomy tube to gravity. Only 10 cc output in last 24 hours. RAYA drain. About 190 cc last 6 hours. Nasogastric tube to low intermittent suction. Minimal output. Patient is on a small dose of propofol 5 mics. Telemetry shows sinus rhythm. Patient started on small dose of Cleviprex this morning. Blood pressure. Getting TPN. FiO2 35 and PEEP of 5. Discussed with the at the bedside. Hemodialysis today December 02: ICU. Patient remains intubated. FiO2 35 PEEP of 5. Patient is on IV propofol. IV Cleviprex was discontinued yesterday. Also remains on TPN. Telemetry shows sinus rhythm. NG tube is good no output. Still significant output through the RAYA drain. Jejunostomy tube has minimal output. Patient had hemodialysis today 2 L of fluid was removed. Oral half liters yesterday. Patient getting a sedation holiday. General Surgery started the patient on trickle feeding at 10 cc an hour. I did speak to patient's at the bedside. Prognosis remains guarded but there is some improvement. December 03: ICU. Intubated. FiO2 35 PEEP of 5. Drips include IV propofol and Precedex. Getting TPN. Telemetry shows sinus rhythm. Remains on IV Lasix 80 mg twice a day. IV meropenem. Because patient gets easily agitated when transitioning off propofol he has been switched over to Precedex. For hemodialysis today. December 04: ICU. Intubated. FiO2 35 and a PEEP of 5. Patient been taken off propofol is on Precedex. Telemetry sinus rhythm. J-tube with minimal output. RAYA drain with decreased output. NG tube to suction minimal output. Family wanted to hold off trickle feeding until cleared by oncology. Which he did today. Trickle feeding will be started today. Spoke to patient's and one of the daughters at the bedside. Dr. Russ is spoken to the earlier this point they want to do further tracheostomy tube. December 05: ICU. Intubated. FiO2 35 PEEP of 5. Patient remains on Precedex and PPN. Patient's dialysis catheter was not functioning is getting another [address] Bobby this afternoon. Remains on IV meropenem. Has a RAYA drain in the jejunostomy tube to gravity. NG tube to low intermittent suction. No family at the bedside. December 06: ICU. Intubated. FiO2 35 PEEP of 5. RAYA drain putting out about approximately 120 cc per shift. Patient on IV Precedex. FiO2 35 PEEP of 5. Telemetry-sinus rhythm. Patient occasionally been put on small dose of Levophed specially for hemodialysis getting it today. Also started on midodrine for low blood pressure. Tolerating tube feeding at 10 cc an hour. Also had a bowel movement. Mentation has not improved. Even with sedation holiday. Neurology consulted. CT brain shows no acute process. December 07: ICU. Intubated. FiO2 35 PEEP of 5. Telemetry-sinus rhythm. NG tube to suction low intermittent minimal output. Getting TPN. Tube feeding at 20 cc an hour. RAYA drain averaging over 100 cc per shift. Remains on Precedex. EEG was done today. Discussed with at the bedside. Family is currently not inclined for tracheostomy tube today. Day 13 of being intubated December 08: ICU. Intubated. FiO2 35 PEEP of 5. Patient is put on back on propofol per prototyper Dr. JIMENEZ. EEG did show some potential for spikes was put on Keppra by neurology. Telemetry shows sinus rhythm. NG tube to suction with no output. Tube feeding was put on hold because of questionable discharge on the site. Being restarted today. RAYA drain is 150 cc last 12-hour shift. Patient does open eyes. Family has decided to proceed with tracheostomy and surgery has been consulted for the same. Spoke to the at the bedside. For hemodialysis today. December 09: ICU. Intubated FiO2 35 PEEP of 5. Patient seen this morning. Pending tracheostomy placement this afternoon. Remains NPO. G-tube feeding was held overnight. RAYA drain putting out about 100 cc per shift. Received a unit of blood for hemoglobin of 6.6. On 25 mics of propofol. Getting TPN and meropenem. Spoke to the at the bedside. Patient became hypotensive with dialysis yesterday. Levophed had to be given. Only 800 cc were removed y esterday. No hemodialysis today. December 10: ICU . FiO2 35, PEEP 5. Tracheostomy was done yesterday by Dr. Ewing. G-tube feeding was started today at 10 cc an hour. Dietitian following. RAYA drain 12-hour shift overnight put out about 30 cc. Patient hemodialysis today about 1 L removed. Patient has a sacral stage II decub with a dressing. On propofol 20 mics. Spoke to at the bedside. TPN. Meropenem was discontinued yesterday. December 11: ICU. FiO2 35 PEEP of 5. Tracheostomy. NG tube was discontinued. No hemodialysis today. Telemetry shows sinus rhythm. J-tube feeding at 40 cc an hour. TPN was discontinued. Patient has been off propofol also. PICC line in place. Patient had a EEG done today. Spoke to patient's elder daughter at the bedside. May open eyes occasionally. Not really following commands December 12: 73-year-old white male with history of chronic abdominal pain for the last 8 months has been treated with Protonix 40 mg daily for the last 3 months with no improvement. Patient had a 22 pound weight loss in the last [address] of the abdomen and pelvis 3 weeks ago showed thickening of the antral wall with pathological adenopathy posterior to the stomach suspicious of neoplasm. Today the patient underwent elective upper endoscopy to evaluate further, patient received IV sedation by anesthesia endoscope was inserted into the mouth, esophagus was intubated without any difficulty there was evidence of large amount of liquid and solid food noted in the stomach suggestive of gastric outlet obstruction. Scope could not be advanced through the pylorus, however in the prepyloric area there was a large superficial ulceration identified with multiple biopsies were done from this area. The body cardia and fundus could not adequately visualize because of large amount of retained food in the stomach. Scope was withdrawn back to the stomach and upon careful examination the mucosa of the antrum body and cardia as well as the fundus appeared normal. Procedure was being performed and biopsies were done patient threw up and subsequently became hypoxic there was clearly evidence of witnessed aspiration anesthesia intubated the patient, procedure was terminated, and the patient was transferred to the ICU, this consult was initiated. Patient is now on assist- control rate of 20 tidal volume 500 FiO2 70% PEEP of 10 ABG is pending, earlier ABG showed profound hypoxia patient is on propofol at 50 mcg/kg/min, next ABG is pending. Chest x-ray showed chronic changes without evidence of acute pulmonary disease. 12/14/2023 Patient remains in the ICU, generally weak Patient s/p tracheostomy G-tube in place Patient still has fever and mild tachycardia but tachycardia is improving, leukocytosis improving as well. Hemoglobin 8.1. Creatinine 3.0 and nephrology team on the case. He has mild transaminitis. He was getting Zosyn which is held now, nowCalcitonin is pending 12/14 Patient shon in the ICU, he is still encephalopathic and does not follow command. Neurology service following closely. He is status post tracheostomy. Also J-tube His abdomen looks soft and on exam he has mild coarse secretions. Has a Abarca catheter with clear urine His pro- Calcitonin is still high but trending down 3.0 down to 1.9 No fever this morning WBC slightly less at 16.3 Patient currently off antibiotic He is getting steroids IV Solu-Medrol which might contribute to his leukocytosis. Also he is on IV Keppra by neurologist 12/14 Patient remains confused in the ICU calm, he had a good night per family member and staff. Tracheostomy in place Patient has occasional coughing spells, patient also developed some partial wound dehiscence in his abdomen, surgery team are aware and are going to evaluate the patient Patient also has positive blood culture from 12/13: Gram-positive cocci in clusters. Patient received one-time dose of IV vancomycin. Patient also had fever 2 days ago, leukocytosis and total elevated pro- Calcitonin. Therefore we are going to consult infectious disease team. As his antibiotic Zosyn was stopped few days ago. Currently patient KVO He has good urine output December 16: ICU. Trach. Congested. Requiring suctioning. No hemodialysis today. Getting G-tube feeding at 50 cc an hour. FiO2 30 and a PEEP of 5. On IV Precedex. Eyes open. Does follow commands. Weakness in the limbs. Spoke to at the bedside. Sputum positive for Klebsiella oxytoca and Pseudomonas aeruginosa. December 17: ICU. On trach. Currently cough with increased secretions requiring suctioning. Adding scopolamine patch. Very much clear secretion. CT scan is showing right upper lobe lung abscess. G-tube feeding at 50 cc an hour. Hemodialysis today. RAYA drain putting out about 140 cc a shift. Serous. Has been midline incision wound dehiscence. Wound VAC was placed on it. Stage II ulcer. Patient is on Precedex drip 0.15 mics. Urine output is good about 6200 cc an hour. Spoke to the at the bedside. Patient currently not stable for transfer to LTAC. No limb movements. PT OT on the case. otherwise awake does follow simple commands by face December 18: ICU. Patient seen this afternoon. Because of pain getting IV Dilaudid. No nasal cannula on room air. Does move about his head. Telemetry shows sinus rhythm. FiO2 30 and a PEEP of 5. Patient started on scopolamine patch yesterday has decreased secretions today. Good urine output. Tube feeding at 60 cc an hour. Wound VAC on incisional would be high since in place. RAYA drain continues to make output. No hemodialysis today December 19: ICU. Patient was seen earlier today. FiO2 30 and a PEEP of 5. Sinus rhythm. Awake. Does follow with eyes. Tube feeding got obstructed tube feedings held for now. Increasing oozing from the incision drainage site. at the bedside. Wound VAC remains in place. Good urine output. Dialysis held today. December 20: ICU. Per nephrology no dialysis today. 1 L fluid bolus given. J- tube was replaced over the wire by Dr. Ewing from surgery. On Precedex 0.6 mcg. FiO2 30 and a PEEP of 5 on the vent. RAYA drain putting out of around 100 cc per shift. at the bedside. Drainage through the abdominal incision wound. CT scan abdomen showed tube placement in the small bowel. Stable large right lower quadrant mass with a fluid level. December 21: ICU. No dialysis today. Patient started on trickle feeding through the J-tube yesterday. He started leaking around the J-tube site. Tube feeding was held. Dressings were placed. Wound VAC remains on the incision. Still having output through the RAYA drain. Patient remains on Precedex 0.4 mcg. FiO2 30 and a PEEP of 5. Sinus rhythm. at the bedside. December 22: ICU. Patient was seen this morning today by me. No dialysis today. Patient's and daughter at the bedside. FiO2 30 and a PEEP of 5. Sinus rhythm. Still having significant secretions through the tracheostomy tube. On Precedex 0.4 mcg. Getting D5W IV fluids. Tube feeding remains to be on hold since yesterday. Still output of RAYA drain. Awaiting input from surgery. Discussed with the and daughter. December 23: ICU. Saw the patient this afternoon. Because of good output of urine dialysis has been discontinued. Telemetry shows sinus rhythm. FiO2 30 and a PEEP of 5. RAYA output has been around 8200 cc an hour. Good urine output. Patient does have very slight movement of the limbs. Wound VAC is putting out about 20 cc per shift. Yesterday when trickle feeding was started patient's J- tube drainage also started leaking around the insertion site. Tube feeding was held. Patient remains on IV Zosyn and Precedex at 0.3 mcg. I had a very lengthy discussion with patient's daughter and at the bedside overall guarded prognosis. Later surgery spoke to the family, and then the nurse called me that family was wanting transferred to [facility]. I spoke to Dr. Irby. They felt they could not offer anything more at this point. I did call the [facility] transfer steam box tender. Gave them the reason for transfer. Later in the ICU nurse informed me through [employer] that [facility] had declined the transfer. Total time spent today about 50 minutes with over 30 minutes of discussion. December 24: ICU. Patient is doing not too well. Sinus rhythm. Drips include norepinephrine and IV propofol. Surgery did put 2 stitches around the J-tube insertion site. Started on TPN today. FiO2 30 PEEP of 5. Patient became hypothermic put on a Manjit hugger. Also hypoglycemic. Decreased urine output. IV fluids increased. Patient's son was at the bedside. I did speak to patient's eldest daughter outside in the waiting room. Did tell the patient doing very poorly. I did try to call the on the phone number she has gone home. Started an IV antifungal today. December 26, 2023 73-year-old white male with history of chronic abdominal pain for the last 8 months has been treated with Protonix 40 mg daily for the last 3 months with no improvement. Patient had a 22 pound weight loss in the last [address] of the abdomen and pelvis 3 weeks ago showed thickening of the antral wall with pathological adenopathy posterior to the stomach suspicious of neoplasm. Today the patient underwent elective upper endoscopy to evaluate further, patient received IV sedation by anesthesia endoscope was inserted into the mouth, esophagus was intubated without any difficulty there was evidence of large amount of liquid and solid food noted in the stomach suggestive of gastric outlet obstruction. Scope could not be advanced through the pylorus, however in the prepyloric area there was a large superficial ulceration identified with multiple biopsies were done from this area. The body cardia and fundus could not adequately visualize because of large amount of retained food in the stomach. Scope was withdrawn back to the stomach and upon careful examination the mucosa of the antrum body and cardia as well as the fundus appeared normal. Procedure was being performed and biopsies were done patient threw up and subsequently became hypoxic there was clearly evidence of witnessed aspiration anesthesia intubated the patient, procedure was terminated, and the patient was transferred to the ICU, this consult was initiated. Patient is now on assist- control rate of 20 tidal volume 500 FiO2 70% PEEP of 10 ABG is pending, earlier ABG showed profound hypoxia patient is on propofol at 50 mcg/kg/min, next ABG is pending. Chest x-ray showed chronic changes without evidence of acute pulmonary disease. 12/27/2023 Patient is seen and evaluated with family at bedside; remains in the ICU intubated and mechanically ventilated. - ABG showed a pO2 of 99 pCO2 31 pH of 7.44. -- Remains on Eraxis daptomycin and Zosyn patient is intermittently requiring Dilaudid, Ativan does not seem to help his agitation and restlessness. -- Continues to have leakage around the jejunostomy tube, and patient is undergoing the J-tube exchange today. Family is at bedside, seems to be quite anxious about his overall condition, and I explained to the that we are doi ng the best we can considering his critical illness situation and critical illness polyneuropathy. Patient is profoundly weak, and weaning the patient from mechanical ventilation is almost impossible. At least not at this point yet WBC count is 10.9 hemoglobin is 8.1 basic metabolic profile is normal BUN is 46 creatinine 1.90 patient has been off hemodialysis since the . Chest x- ray continues to show stable findings with right upper lobe opacity and right lower lobe opacity and possibly a small right-sided pleural effusion ----Continue ventilatory support, now on IMV mode rate of 16 with pressure support of 14 Continue Precedex and use Dilaudid 0.5 mg every 2-3 hours as needed. Nutritional support patient is now on TPN, Possible J-tube changed today for J- tube malfunction Continue antibiotics including daptomycin and Zosyn, Eraxis was added by infectious disease 12/28/2023 the patient is seen and evaluated in room at bedside; continues to be afebrile, the patient is on the ventilator through the trach FiO2 is currently stable at 30% no significant pleural effusion clinically patient on requiring any pressor support still having drainage around his jejunostomy tube patient dialysis catheter has been discontinued. Patient white count normalized to 7.6, creatinine is 1.51 patient with pneumonia with a sputum showing Citrobacter and Pseudomonas aer uginosa, the patient sputum repeat is still growing Citrobacter and Pseudomonas sensitive to the Pseudomonas is pending continue with Zosyn -patient did have a positive blood culture with staph epi that was oxacillin resistant as the patient did have a PICC line and the dialysis catheter he is on daptomycin repeat blood culture currently growing oxacillin sensitive staph epi, the patient dialysis catheter has been discontinued Has been sent for the culture -patient also have significant excoriation around his jejunostomy tube site which is still leaking Eraxis was added which will be continued as the patient fever pattern has improved and the patient white count has normalized once again discussed with the nursing staff to apply Triad cream which was discussed yesterday but not applied and monitor clinical course closely 12/29/2023 Patient is seen and evaluated with family members at bedside; remains intubated and mechanically ventilated -- ABG showed a pO2 of 105 pCO2 31 pH of 7.45. Remains on Precedex; multiple antibiotics and antifungal including Eraxis daptomycin and Zosyn. -- chest x-ray is showing improvement in his right upper lobe airspace diseas e/pulmonary abscess. Right lower lobe seems about the same with chronic opacity and possibly some small right-sided pleural effusion. --Family is at bedside, patient is arousable but does not follow any instructions. Gets extremely restless and agitated easily hence patient is receiving Dilaudid which seems to be working much better for this patient than benzodiazepines --possibly transfer the patient to a select care specialty. 12/30/2023 Evaluated in follow-up in the intensive care unit. He remains on the mechanical ventilator. Status post tracheostomy. There has been a decrease in the amount of leakage around the J-tube site he continues on a gravity flow. TPN is infusing tube feedings remain on hold at this time. No bowel movement reported for the last 5 days. X-ray today reveals extensive pleural parenchymal opacities throughout the right with at least a moderate pleural effusion. Mild patchy densities left mid and lower lung are also similar. Blood work reveals a white blood cell count 11.5, hemoglobin 8.1, platelet count of 78, sodium 142, potassium 4.2, BUN of 42, creatinine of 1.22, Phos of 2.3, magnesium 1.9. Patient continues on IV anidulafungin IV Zerbaxa IV daptomycin. Patient is currently sedated with propofol and also Precedex which is currently on hold at this time. December 31, 2023: ICU. Patient continues to do poorly. On propofol 35 mics. Also getting IV Dilaudid and IV Ativan.. Telemetry shows sinus rhythm. J-tube feeding has been discontinued. Significant output through the Abarca bag and around the G-tube site. Patient also putting out through the RAYA drain on the right side. Getting TPN and lipids. Patient is antimicrobial include iv aniedulefungin, IV ceftolozane/tazobactam, IV daptomycin Advance care planning [October 31, 2023] I met with patient's at the bedside. Went through in detail with patient is overall very poor clinical status. Chances of any meaningful recovery next to minimal. I also did mention that patient in my opinion was not stable to go to chronic ventilator setting. I suggested comfort care/hospice. I did not feel and why all honesty that patient is benefiting any further from the treatment we are giving him in fact causing probably more suffering. I also spoke to patient's daughter outside in the waiting room. Total time spent about 50 minutes with over 30 minutes of discussion. Later I called Dr. Luther JIMENEZ the prototyper after he received a text that family was expressing that some physician expressed he was doing better and giving hope. I spoke to nurse Lemos in the evening and she and Dr. JIMENEZ did go and talk to patient's family at the bedside later. January 01, 2024: ICU. FiO2 30 and a PEEP of 5. Continues to have increased drainage at the G-tube site. Wound VAC in place over the incision. RAYA drain continues to put out excretions. Good urine output. Drips include IV propofol at 20 mics, also getting IV Ativan and Dilaudid. Patient also keeping getting TPN lipids. Spoke to the patient's at the bedside. No further questions. I did speak to Dr. Irby from general surgery. Hence it is both our impression again that changing the tube will not make any difference to the bigger picture. And probably futile. Dr. Irby will be speaking to the family today. David from social work instructor did ask about of family meeting. I did reiterate that I spo myrna at length to the a few times and also the daughter. Dr. Jimenez also spoke to the and Dr. Irby will be speaking with the today. Prognosis remains to be very poor. I did tell the in my opinion probably the patient is not r a candidate for long-term facility. Will prototyper Dr. Jimenez determine if the patient is a candidate for long-term chronic ventilator facility. January 02, 2024: ICU. FiO2 30 PEEP of 5. Telemetry sinus rhythm. Drips include propofol at 20 mics. Patient getting TPN lipids. Receiving 1 unit of packed red blood cell. Patient was having a breakdown around the tracheostomy stoma site. With a cuff leak. G-tube site is continues to have increasing output. Wound VAC in place. RAYA drains also having increasing output. Patient sister and daughter from [place] from out of town. Earlier they spoke at length with Dr. alford from general surgery. Prognosis remains poor. January 03, 2024: ICU. FiO2 30 PEEP of 5. On propofol. 50 mics. Getting TPN lipids. Sinus rhythm. Wound VAC in place. Drainage around the j-tube site. RAYA drain continues to drain. Patient somewhat sedated. at the bedside. Later social work instructor David inform me that the surgical team Dr. Irby has suggested possible you have [facility], to which family is trying to obtain transferred to. Per Dr. Jimenez note patient has been decline by long-term care twice. Prognosis remains poor. at the bedside. Had no questions. Brother Nathan is present. January 04, 2024: ICU. FiO2 30 PEEP of 5. Propofol was held this morning. Getting TPN lipids. Sinus rhythm. Wound VAC remains in place. Continues to have drainage around the J-tube. RAYA drain continues to have output. at the bedside. She had no questions. Antibiotics in place. January 05, 2024: ICU. FiO2 30 PEEP of 5. Audibly sounding congested. Getting TPN lipids. Sinus rhythm. Wound VAC in place. Drainage around J-tube site. RAYA output continues. No family at bedside. Getting antibiotics. Lethargic January 06, 2024: ICU. FiO2 30 PEEP of 5. Patient is been off propofol since yesterday. Does move his head about. Try to open his eyes sometimes. Sinus rhythm. Blood pressure is running high yesterday. Started on Cleviprex. Hydralazine is being added. Continue to get TPN lipids. J-tube site remains excoriated. Wound VAC in place. RAYA output about 40 to 50 cc is a 12-hour shift. Patient elder daughter at the bedside. Eraxis was discontinued on January 02. Daptomycin is being discontinued by ID. Continue ceftolo'szone. CT abdomen pelvis done today: 3.1 cm organized fluid collection within the rectovesicular space concerning for abscess. No change in right upper lung 4.9 cm fluid collection with a fluid level. For possible pulmonary abscess. Moderate size right lung base multiloculated hydropneumothorax possibly abscess. Additional areas of air bronchograms. January 07, 2024: ICU. FiO2 30 PEEP of 5. Patient was taken down for pigtail drainage of the right lung abscess. About 200 cc of pus was obtained. Nurse informed me when they told him about for the procedure a lot of pus gushed out from the tracheostomy site. Dr. Love at the bedside did a bronchoscopy. Some pus was aspirated. No obvious fistula was noted. Patient is being back on Cleviprex drip. TPN lipids. January 08, 2024: ICU. Patient was having severe bouts of coughing. Unable to maintain ventilation. Patient was put on Nimbex drip and propofol drip. TPN lipids continue. Has a right chest wall pigtail catheter 90 cc output in 12- hour shift. Drainage from around the J-tube site. RAYA drain continues Ahmet to have an output. Abdominal wound is high since with the wound VAC in place. Patient sedated. January 09, 2024: ICU. Patient is off propofol and Cleviprex. Does open eyes. RAYA drain. About 40 cc last 24 hours. J-tube site continues to have increased output. Requiring dressing change every so often. Wound VAC in place. Patient getting Dilaudid and Ativan. Telemetry shows sinus rhythm. 40 cc out of the pigtail drainage. Patient started on ciprofloxacin and tobramycin. Remains on TPN and lipids. Patient's eldest daughter and at the bedside. No new questions. January 10, 2024: ICU. Overnight patient had become asynchronous. Had to be put on Precedex drip. Hemoglobin dropped down to 6.6. Monitor blood ordered. RAYA output about 100 cc last 24 hours. Wound VAC remains in place. TPN lipid continues. Patient also has a leak in the right pigtail catheter. Sinus rhythm. Continues to have increased secretion at the G-tube site. Ventilator FiO2 30 and a PEEP of 5. at the bedside. Had no further questions. January 11, 2024: ICU. Patient remains on IV Precedex. TPN.'s RAYA output over 30 cc last 24 hours. Wound VAC remains in place. Sinus rhythm. FiO2 30 PEEP of 5. Pigtail with very little output. Spoke to Dr. Love who only spoke to the patient's at length. Gnosis poor. When I walked in patient's 2 daughters and the present. is very tearful crying hugging the patient. The daughter had no further questions January 12, 2024 Ahmet: ICU. Continues on IV Precedex. Getting TPN lipids. Wound VAC in place. Sensitive. FiO2 30 and a PEEP of 5. Patient's at the bedside. Had no questions. January 13, 2024: ICU. FiO2 30 PEEP of 5. Remains on Precedex 0.8 mg. Eyes open. Sometimes does track with head. Not moving limbs. Some decrease in output from the G-tube site. Wound VAC putting out about 100 cc every 12 hours. RAYA drain about 100 cc every [address] Russ met with the family earlier today. Patient's been made DNR. Telemetry sinus rhythm. Patient's and daughter at bedside. They have no questions January 14, 2024: ICU. FiO2 30. PEEP of 5. Patient is has eyes open and tracking. Urine output about 100 cc an hour. NG site output looks like gastric contents. RAYA site about 50 cc in the last 12 hours. Telemetry sinus rhythm. and daughter have asked for hospice consultation for informational visit. They want to use [facility]. I sat with them and the nurse and a full expression of the hospice involved involved. Several questions answered. Daughter does express that she would like to take the patient home. The other sibling will be coming on from [place] on Saturday. They want to hold on at least until then. January 15, 2024: ICU. FiO2 30 and a PEEP of 5. Getting CPAP today. Asynchronous better. J-tube site continues to have increase secretions. Sinus rhythm. Awake. Does move his head possibly to command. Remains on Precedex. Getting Dilaudid. Fair urine output. Has a air leak in the pigtail. Minimal output through the chest tube. RAYA drain continues to have an output. at the bedside. January 16, 2024: ICU. On the ventilator FiO2 30 and a PEEP of 5. Pressure support mode. Wound VAC remains in place. J-tube site continues to have output. RAYA drain putting out output. Remains on pressors Precedex and getting Dilaudid. Antibiotics per ID. Patient being planned to go home tomorrow with home hospice. at the bedside. Had no further questions. Being followed by social work instructor Ryan and home hospice team from [facility] The plan for tomorrow currently is as follows: -Hospice arranging for transport with portable ventilator, to home with family -Antibiotics as discussed with ID will be discontinued -Wound VAC to be removed prior to discharge per surgery -RAYA drain to remain in place with dressing changes at the J-tube site. Dressing changes at the incision site per surgery. -TPN lipids will be discontinued prior to discharge -Patient to be taken off Precedex by r prototyper January 21, 2024: ICU. Ventilator FiO2 30 and a PEEP of 5. Precedex drip. Sinus rhythm. Does wake up and follow commands. Weak in the limbs. Very little output through the RAYA drain. Wound VAC in place. Requiring Dilaudid for pain control close to every 2 hours. Over the weekend patient and family decided not for hospice. Patient is now full code instructions. Looking at long-term placement. Patient on tobramycin and ciprofloxacin and Diflucan per ID. Patient and daughter at the bedside.. Physical therapy in the room for passive movements. Family being educated. Since yesterday patient has been on pressure support./CPAP. Getting TPN lipids. January 22, 2024: ICU. Patient was on CPAP this morning. Plan was to take him to trach only this afternoon. Getting IV Precedex. Awake. Moves his head to command. Was able to move his right arm. Wound VAC remains in place. Right chest tube/pigtail catheter in place. Some air leak. Minimal output from the right RAYA drain. Secretions persist through the left J-tube site. at the bedside. Spoke to the social work instructor Ryan. Looking into long-term placement. 01/23/24 Patient is evaluated in the ICU at the bedside. Feels anxious today, preced ex is being weaned. He is awake alert. He is edematous. Abdominal wound vac in place. Right chest tube/pigtail in place. 55 ML of drainage overnight. Right sided RAYA drain. J tube in place. On TPN. He is pending approval for select specialty vs. [facility]. Blood work today reveals a sodium level of 131. Continues on IV Ciprofloxacin/ IV fluconazole. 01/24/2024 Patient remains in the intensive care unit as remains at the bedside. He was weaned off the Precedex today did receive a dose of Ativan this morning however his mood has much improved. Abdominal wound VAC in place with evidence of purulent drainage in the canister. He has had 15 mL of drainage overnight from the right sided chest tube. J-tube remains in place. He continues on TPN. He continues on IV ciprofloxacin and IV fluconazole with plans for repeat abdominal pelvis CT today by infectious disease and consider discontinuation of antibiotics afterwards. Sodium level today is 130. Still pending approval for discharge to LT[facility] versus [facility]. 01/25/2024 Patient remains in the intensive care unit he continues off IV Precedex at this time. Continues with TPN. Repeat chest abdomen pelvis CT completed yesterday which shows a decrease seen in the hydropneumothorax within the right lung base with drainage catheter there is no change in the bibasilar infiltrates and small left effusion. There is interval development of a dilated small bowel loop in the mid abdomen consistent with either a focal ileus or partial obstruction. There are findings suggestive of acute diverticulitis of the sigmoid colon with a small pericolic phlegmon abscess however is decreasing in the interval from compared in the prior study from 3.4 cm to 3 cm. There is moderate anasarca and the peritoneal dialysis catheter and small bowel drainage tube unchanged in position. Blood work today reveals a white blood cell count of 20.1, hemoglobin 8.3, sodium 131, BUN of 21, creatinine 0.66, magnesium 1.7. He is on IV Cipro. IV Flagyl was added today by infectious disease. Was made a full code at request of family. 01/26/2024 Patient remains in the ICU. More awake alert and oriented today. He continues on the trach collar. Sounds less congested. Continues on IV cipro and IV flagyl. White blood cell count better today at 16.3. Hgb 7.2. Sodium 130, potassium 3.4. Continues on TPN. 01/27/2024 Patient is seen in follow-up continues to be in the ICU with multiple consultations following. Family at the bedside and patient is more awake although continues with bronchial congestion and frequent suctioning with the trach collar. Patient remains off Precedex. Patient continues on antibiotics for possible lung abscess that was positive for Pseudomonas with a persistent air leak. Minimal output of the pigtail catheter noted. FiO2 is 40% trach collar maintained on 10 L oxygen. Patient continues on TPN and will adjust accordingly per dietary and pharmacy. Overall prognosis remains extremely poor. Patient remains full code. Per nursing staff patient was denied from [facility] special[facility] with case management/social work following. 01/28/2024 Patient is eval in follow-up today in the intensive care unit. He had an ax illary temp 101.6 for this reason a septic protocol was done including urinalysis blood cultures and viral panel. He remains on IV cipro and IV flagyl. Airleak to the chest tube remains to suction. He continues on a trach collar 40% FiO2 with oxygen at 8 L. He continues on TPN and lipids adjustments per dietary and pharmacy. We are currently not using the J-tube for feedings at this time. He has a wound VAC in place to the midline abdominal incision. He is more awake alert and oriented and less agitated. Sodium level today is 133. Renal function is within normal limits. 01/29/2024 Patient is evaluated today in the ICU with family at the bedside. He continues to have elevated temps. He is more lethargic. White count 20.2 today. Septic work up started. Repeat urinalysis not overly suggesting of infection. Viral panel negative. Chest xray today reveals patchy and confluent bilateral airspace disease similar to slightly worsened. Right-sided pleural catheter demonstrated. There is similar small right pleural effusion. He was started on IV vancomyin, IV meropenem and IV metronidazole. The cipro has been discontinued. Lactic acid 2.3. Sodium 134, renal function normal. Hgb 7.6. Tube feedings remain on hold. Not safe to restart and he continues on TPN/Lipids. 01/30/2024 Patient evaluated today in follow up. Remains in the ICU. Underwent bronchoscopy and repair of a tear in the tracheostomy cuff. Deep sputum culture pending. Patient remains on the mechanical ventilator with ABGs today showing pH level of 0.33, pCO2 of 59, pO2 of 152, HCO3 of 41, total CO2 of 33, hemoglobin 6.6. Lactic acid has normalized. White blood cell count 19.3 today hemoglobin 7.3. Patient is continued on IV propofol as well as backs. Continues on antibiotics in the form of IV vancomycin, IV meropenem, IV metronidazole. Continues on TPN lipids. Chest xray improved throughout both lung ramirez with mild improved aeration at the right lung base. No pneumothorax present. Right-sided chest tube remains in place to suction. 01/31/2024 Patient evaluated today in follow up in the intensive care unit. Remains on the mechanical ventilator, 50% FiO2. Family at the bedside and hoping for extubation today. Continues on TPN/Lipids. Labs today reveal white blood cell count 15.4, hgb 7.0, platelet count 169. Sodium 136, potassium 5.4. BUN 29, creatinine 0.61. Chest xray today reveals ongoing multifocal patchy and confluent airspace disease. A small to moderate right pleural effusion may be slightly increased. Sputum culture from bronchoscopy continues to show pseudomonas. Chest tube re shon in place. on IV vancomycin and IV meropenem. 02/01/2024 Evaluated today in follow-up in the intensive care unit. Patient remains on mechanical ventilator with a 50% FiO2. His repeat sputum cultures from the bronchoscopy continue to show Pseudomonas. He continues on IV vancomycin and IV meropenem infectious diseases following closely. He continues with a wound VAC to his midline abdominal incision. Per surgery they feel that the fistula from his J-tube is mature he is currently off of tube feedings at this time though continues on TPN lipids. White blood cell count today is 15.3, hemoglobin 7.2, sodium 140, potassium 5.0, BUN of 33, creatinine 0.59. 2.0 mL of drainage over the last couple days. His chest x-ray today reveals no change in the marked diffuse cardiopulmonary process including scattered interstitial and partially consolidative infiltrates and bilateral pleural effusions which remain unchanged as compared to prior. 02/02/2024 Patient is evaluated today in follow-up in the intensive care unit. Patient remains in the mechanical ventilator with an FiO2 of 50%. His repeat sputum cultures are showing Pseudomonas now with drug resistance Pseudomonas is suscep tible to amikacin and tobramycin with intermediate susceptibility to Zosyn and gentamicin. Antibiotics have been adjusted to Tobramycin and IV zosyn. February 03, 2024: I resumed care of the patient today. ICU. I was away last week. Patient had a tracheostomy leak. Underwent a bronchoscopy. And went back on the ventilator. Currently FiO2 5040% and a PEEP of 5. Drips include Precedex. Also getting TPN lipids. Patient getting Dilaudid 0.5 mg every 3 hours. And also Toradol. Good urine output. Right-sided RAYA drain was removed on January 27. Chest tube drain has minimal output. Patient continues to leak from the left-sided G-tube site. Patient's abdomen is rather distended. Surgery will be evaluating the patient today. Patient's and daughter at the bedside. That questions regarding the abdomen will defer the same to surgical team. Patient is extremely high risk for any surgery. Spoke to David the case mgr. As of now LTAC had declined the patient. Patient also has a stage III on the buttock. Patient has a Shiley #8 tracheostomy tube. Checks x- ray today shows extensive interstitial and patchy bilateral infiltrates. New prominent air density below the diaphragm no peritoneum was to be excluded. Patient's bronchoscopy results show multidrug-resistant Pseudomonas. Patient has been treated with Zosyn and tobramycin-currently getting both.. Patient is awake. Attempts to talk. Able to follow commands. February 04, 2024: ICU. and the daughter at the bedside. is rather tearful. Yesterday evening Dr. Irby from surgery said surgical intervention highly risky including poor outcome. Second opinion was obtained from Dr. Pompa this morning. Also recommended possible hospice. Dr. Russ from pulmonary also spoke to the family. Prognosis remains poor. CT scan abdomen yesterday during showed large pneumoperitoneum. NG tube to suction. On propofol. Patient sedated. Sinus rhythm. Right-sided chest tube remains in place. J-tube site to gravity drainage. Getting TPN lipids. I also suggested comfort measures. February 04: ICU. Saw the patient this morning. and assist at the bedside. Remains on propofol. IVs include TPN and liquids. Right chest tube remains in place. Left-sided J-tube to drainage to gravity. On the ventilator with FiO2 40 and a PEEP of 5. Lethargic but able to follow some commands. February 05: ICU. Patient remains on propofol. A bit lethargic. Does follow simple commands. Getting TPN lipids. Right chest tube in place. Left J-tube to drainage to gravity. On the ventilator FiO2 50%. I walked in the room Dr. Alford from surgery today. Talk to the family. Spoke to Dr. Russ, Dr. Jason Leonard all feel baby should be hospice comfort care. I did express this to the family including the and his daughter and sister at the bedside. They also had a patient's daughter on the phone. All the treatment seems to be futile. Will be extremely appropriate for the patient to be comfort cares measures. I have asked for a multidisciplinary meeting with the family tomorrow at [address] Montes, Dr. Russ, Dr. Alford and myself. Wound VAC in place. February 06: ICU. Patient was taken off propofol put on Precedex. Following commands. Getting TPN lipids. Right chest tube remains in place. Minimal output. Left-sided J-tube to drainage to gravity continues with output. Remains on the ventilator. Wound VAC. NG tube remains in place. FiO2 35 and PEEP of 5. Patient continues to get intermittent Lasix.Currently on IV tobramycin and IV Zosyn. Multiple disciplinary meeting was held at 11 AM in the ICU today. Meeting was requested by myself. People present in the room in the meeting included Dr. Alford from general surgery, Dr. Montes from ID, Dr. Russ from prototyper, nurse Anitha, patient's , patient's eldest daughter, patient's brother and some other family members. Several questions were answered and all specialist gave the portion. Specifically: Dr. Montes from ID: No further change in antibiotic at present time. Per Dr. Alford: No surgical options patient extremely high risk from surgery and mood diabetes any benefit will be done. Per Dr. Russ: Will keep adjusting patient's vent settings in view of the tracheostomy. Patient just ask about taking the patient home with palliative care. Given patient's critical illness and the fact that this still wanted the patient to get better, sending her home is currently not an option in that case. February 07: ICU. Patient NG tube got pulled off. Had to be reinserted. Patient now on Precedex. Awake. Trying to speak. Patient's and daughter at the bedside. CT scan was ordered. states depending on the results they will decide about either to continued here or go home. Left J-tube remains drainage to gravity. Right chest tube remains in place. Wound VAC in place. TPN lipids continue. February 08: ICU. Awake. Following commands. On the ventilator. Sinus rhythm. Getting TPN lipids. Urine output fair. Wound VAC in place. Small output through the right-sided chest tube. J-tube to drainage remains. On Precedex. IV Patient's and daughter at the bedside. Wish to take patient home with palliative care with current medications. Pulmonary will coordinate with the home ventilator. Wound VAC and RAYA drainage per surgery. IV antibiotics per ID. Right chest tube to remain in place for hydropneumothorax. Chest x-ray had showed worsening infiltrates of the left side. Social work involved with the same. February 09: ICU. Awake following command. Remains on the ventilator. Sinus rhythm. Receiving TPN lipids. Good urine output. Wound VAC remains in place. J-tube output about 100 cc per 12-hour shift. Getting IV tobramycin IV Zosyn. Remains on Precedex 0.8 mcg. Right-sided chest tube remains in place for hydropneumothorax. [facility]NA team is in there. They are unable to provide TPN lipids current ventilator settings and feel patient is too sick to be home. steel construction worker David involved. February 10: ICU. Saw the patient this afternoon. Awake. Following commands. On the ventilator. Family at the bedside. Including daughters and . Final plan has been that patient will be discharged on portable ventilator to his house. Then will be placed on a trach collar. Precedex drip was discontinued prior to discharge. Patient is J-tube to drainage to remain in pigtail catheter remained. Wound VAC was discontinued yesterday. No medications on discharge for hospice for comfort. Patient received morphine here for pain. Discussed with social work and the nurse. Patient was made DNR today. Past medical history to include: GERD Social history: . No smoking. Physical examination: VITAL SIGNS: 78, 27, 156 x 105, 97% on the ventilator GENERAL: Eyes open. Attempts to talk EYES: Pupils equal. , tracking Conjunctiva edouard l. HEENT: External appearance of nose and ears normal, tracheostomy-. NG tube to intermittent suction NECK: JVD unable to assess; masses not palpable. HEART: First and second heart sounds are normal; edema, present LUNGS: Respiratory rate increased, decreased breath sounds right chest wall pigtail catheter ABDOMEN: Soft, some tenderness. Liver spleen not palpable, no masses palpable..jejunostomy tube-dressing in place, . RAYA drain. Incision with stitches with - wound VAC PSYCH: Unable to assess NEURO: Does lift his right arm. Attempts to talk INVESTIGATIONS, reviewed in the clinical context: February 10: White count 7.2 hemoglobin 7 platelets 460 potassium 4.2 creatinine 0.67. Acute kidney injury.. February 08: White count 19.5 hemoglobin 7.2 platelets 421 potassium 3[address] abdomen pelvis [February 07]: Results in chart February 07: White count 14.9 hemoglobin 7.5 platelets 368 potassium 4 BUN [address] abdomen pelvis [February 02] massive pneumoperitoneum with possibly right lower quadrant large bowel and/or small bowel perforation. Hyperemia and wall thickening of the cecum and ascending colon. Sputum [January 21] Pseudomonas aeruginosa-multiple drug-resistant February 02: White count 16.5 hemoglobin 8.6 platelets 385 sodium 142 potassium 3.1 BUN 37 creatinine 0.65 January 21: White count 14.9 hemoglobin 7.9 platelets 399 potassium 3.[address] abdomen pelvis [January 05]: 3.1 cm organized fluid collection within the rectovesicular space concerning for abscess. No change in right upper lung 4.9 cm fluid collection with a fluid level. For possible pulmonary abscess. Moderate size right lung base multiloculated hydropneumothorax possibly abscess. Additional areas of air bronchograms. January 05: White count 10.6 hemoglobin 7.6 platelets 111 sodium 137 potassium 3.5 BUN 44 creatinine 0.95 January 03: White count 13.4 hemoglobin 8.1 platelets 95 potassium 5.2 creatinine 1.1 albumin 1.8 Sputum culture [December 24] Citrobacter freundii, Pseudomonas aeruginosa Blood culture [December 24] Staphylococcus pettenkoferi December 24: White count 1.5 hemoglobin 8.2 platelets 106 potassium 3.8 BUN [address] chest abdomen without contrast [December 16] right upper lung cavitary lesion with air-fluid level in the posterior aspect and a larger cavitary lesion possibly within the lung parenchyma itself. Extending down towards the diaph ragm additional airspace opacities in the left lung base. December 09: White count 26.1 hemoglobin 8.6 platelets 154 potassium 4.1 BUN 86 creatinine 3.31. Hemoglobin this morning was 6.6 prior to transfusion EEG-evidence of generalized cerebral dysfunction and sporadic intermittent higher amplitude sharply contoured waves mainly bifrontal. Showing cortical irritability. 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 Serosal fibrous adhesions. Viable margins. Sputum culture: [November 25]: Citrobacter freundii. Pseudomonas aeruginosa November 20: White count 14.4 hemoglobin 8.8 platelets 229 potassium 4.1 BUN [address] scan abdomen [November 19] possible small bowel obstruction Stool: C. difficile negative November 15: WBC 13 hemoglobin 7.7 platelets 248 potassium 4.3 creatinine 0.87 2D echo: EF 55 to 60%. Kidneys bladder: Unremarkable November 13: White count 12 hemoglobin 6.9 platelets 276 potassium 4.4 creatinine 1.21 magnesium 1.8 iron 6 TIBC 365% saturation 1.64 transferrin 261 ferritin 34.6 B12 569 folate 4.4 November 11: Creatinine 0.86 EGD: Large amount of retained solid liquid food noted in the stomach. Large superficial gastric antral ulceration involving most of the antrum extending into the pylorus causing pyloric stenosis. Biopsies were obtained. Chest x-ray film personally reviewed by me-scattered infiltrates Assessment plan: -Aspiration and gram-negative bacterial pneumonia a bilateral initially from retained gastric contents mostly food and liquids, causing acute hypoxic respiratory failure: On presentation:: Current x-ray showed some worsening of the left side. Subsequent bacterial pneumonia and lung abscess sputum culture November 25: Citrobacter freundii, Pseudomonas aeruginosa. December 13: Klebsiella oxytoca, Pseudomonas aeruginosa. December 29: Multidrug-resistant Pseudomonas aeruginosa IV meropenem-, IV Zosyn.IV ceftolozane/tazobactam, IV daptomycin, tobramycin- all discontinued Currently getting IV Zosyn and tobramycin -Large pneumoperitoneum likely from perforation. Has been told by Dr. Peñaloza and Dr. Pompa from surgery/[second opinion]. Extremely high risk for any surgery. Very poor outcome. -Right-sided hydropneumothorax with no improvement Pigtail catheter in place -Intermittent asynchronous with the ventilator. -January 28 patient underwent tracheostomy tube exchange and bronchoscopy with lavage by Dr. Love for a leak around the tracheostomy tube. Patient is a #8 Shiley tracheostomy tube. An air leak was resolved Previously had a leak. Currently resolved -Pain, multifactorial Getting Dilaudid as needed with Toradol -Sepsis with septicemia from above Patient received multiple antibiotics -Right l lung abscess, pigtail catheter placed January 07, 2024.: Slow to respond Initially about 200 cc of pus obtained. During the procedure large amount of pus poured out of the tracheostomy site when patient was rolled on the left side. Status post bronchoscopy with some lavage on 01/07/2024 - lung abscess larger 1 on the right side-patient cultures are growing Pseudomonas and Klebsiella oxytoca: , Received other antibiotics. Currently on Zosyn and tobramycin -Acute pulmonary edema and fluid overload from hypoalbuminemic state and fluids from IV.:: Has been getting Lasix and dialysis: Both held -Altered mentation. Possibly encephalopathy. Could be delirium.: Improvement CT brain [December 06] nothing acute Neurology following EEG-evidence of generalized cerebral dysfunction and sporadic intermittent higher amplitude sharply contoured waves mainly bifrontal. Showing cortical irritability. Keppra was started on December 07 -Critical care poly- Pedro neuropathy: Slow to respond PT OT -Gallstones, asymptomatic -Small l bowel perforation at site of jejunostomy tube tip with balloon..: Portion of small bowel resected. On November 24. New J-tube was placed.- drainage to gravity:-Now discontinued December 19: J-tube blocked. J-tube replaced on December 20 over wire December 21: Leaking around the J-tube site. Feeding held December 23: J feeding was started yesterday evening but again started leaking increasingly around the J-tube site-feeding held again December 24: J-tube feeding has been held. Patient is currently having increased drainage from the J-tube site -Acute kidney injury. Possible ATN from hypotensive shock: Resolved Renal ultrasound unremarkable. Started on renal replacement therapy on November 28. Last hemodialysis on December 17. Being followed by an nephrology. Good urine output. -Nutrition Jejunostomy tube placed November [address] Ewing Received TPN-this was discontinued. TPN lipids restarted on December 24 -Midline abdominal incision wound dehiscence Wound VAC in place -Acute recurrent atrial fibrillation-converted to sinus rhythm Received IV amiodarone. Cardiology following -Acute hypoxic respiratory failure from aspiration pneumonia, status post ventilator assisted: Reintubated November 25. FiO2 35 PEEP of 5 Tracheostomy tube-by Dr. Zepeda on December 09 Tracheostomy tube changed to #8 Shiley on January [address] Love -Septic shock, recovered -Hypertension, recurrent Had received Cleviprex. Hydralazine added -Intermittent hypotension: Corrected Intermittent use of Levophed. 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 Also anemia of blood draw. Iron deficiency anemia Received total of 8 units of blood IV iron. -Severe thrombocytopenia. Would consider coagulation disorder secondary to infection., In the setting of underlying lymphoma.: Fluctuating with infection: Improved Hematology following. 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 difficile ruled out. -Large superficial gastric antral ulceration involving the gastric antrum extending into the pylorus with gastric outlet obstruction. 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 -DNR made on January 12. Now full code with instructions on January 17. Patient was made DNR today Patient made DNR today: All medications discontinued. Patient being discharged on right-sided chest tube with the atrium, left J-tube with drainage. Portable ventilator. Disposition: Disposition: Home with hospice Past Medical History Past Medical History: GERD/Reflux History of Any Multi-Drug Resistant Organisms: None Reported Past Surgical History: Heart Catheterization Additional Past Surgical History / Comment(s): colonsocopy,spinal injection, Past Anesthesia/Blood Transfusion Reactions: No Reported Reaction Past Psychological History: No Psychological Hx Reported Smoking Status: Never smoker Past Alcohol Use History: None Reported Past Drug Use History: None Reported Plan - Discharge Summary Discharge Rx Participant: No New Discharge Prescriptions: Discontinued Fluticasone Nasal [place] [Flonase Nasal [place]] 2 spray EA NOSTRIL DAILY Pantoprazole Sodium 40 mg PO BID Follow up Appointment(s)/Referral(s): Hospice,[facility] [REFERRING] - 1 Week House Medical,Equipment [NON-STAFF] - 1 Week Activity/Diet/Wound Care/Special Instructions: Abdominal Incision Wound Care: Saline moistened gauze covered with ABD; change daily
--- NOTE | 2024-02-12 20:20 | CDI ---
Documentation Clarification Form Date: 02/12/2024 07:46:57 PM From: Barbara Aquino Phone: Admit Date: 11/12/2023 09:12:00 AM Patient Name: Salbador Lawton Visit Number: [id number] Discharge Date: 02/11/2024 03:59:00 PM ATTENTION: The Clinical Documentation Specialists (CDI) and [facility] Coding Staff appreciate your assistance in clarifying documentation. Please respond to the clarification below the line at the bottom and electronically sign. The CDI & [facility] Coding staff will review the response and follow-up if needed. Please note: Queries are made part of the Legal Health Record. If you have any questions, please contact the author of this message via ITS. Doctor/Provider: Thalia Russ Your patient has acute pulmonary edema, pleural effusions, volume overload, cardiomegaly and preserved EF. Based on this information and the findings below, is there an additional diagnosis that is clinically appropriate for this patient? Patient history/risk factors: 73yo M, Asp PNA, aggressive B-cellNHL, VDRF/ARDS, severe sepsis, ATN, severe PCM, >90 IP stay Clinical Indicators: VS/Pulse OX: 94-100 Echo: LVEF is estimated at 55-60 %. LV cavitysize normal. Mild LV dilatation. Mild RV dilatation. Normal right atrial size. Noright atrial thrombusormassseen. Normal left atrial size. Structurally normal mitral valve. NoMS, MR, or MP. Trileaflet aortic valve. Thickened aortic valvewithoutstenosis. Structurally normal TV. MildTR. Pulmonic valve not well visualized. Nopericardial effusion. Normal size aortic root and proximal ascending aorta. Chest X Ray: 12/04 Cardiomegaly, pulmonary vascularcongestionandbilateral pleural effusions. Correlate with BNP forCHF. Treatment: Has been getting Lasix anddialysis; IV push IV fluid cut down Is there an additional diagnosis that is clinically appropriate for this patient? [ x ] Acute Diastolic Heart Failure (preserved EF) [ ] Acute on Chronic Diastolic Heart Failure (preserved EF) [ ] No additional diagnosis/Not clinically significant [ ] Unable to determine [ ] Other, please specify (Template Last Reviewed: April 2022) MTDD
== END 2024-02-11 15:59 | disposition hospice, home (50) | DRG 3 ==
LOC: ORWHC2ENDO 09:11 → 2SICU 09:12 → ORWHC2ENDO 09:12 → 2SICU 10:40 → 5NMEDONC 11-19 18:00 → 2SICU 11-24 14:04
PROVIDERS: ADMIT Hospitalist; ATTEND Hospitalist
PROC: 0D9670Z Drainage of Stomach with Drainage Device, Via Natural or Artificial Opening (ICD-10-PCS; 2023-11-12)
PROC: 0DB78ZX Excision of Stomach, Pylorus, Via Natural or Artificial Opening Endoscopic, Diagnostic (ICD-10-PCS; 2023-11-12)
PROC: 0BH18EZ Insertion of Endotracheal Airway into Trachea, Via Natural or Artificial Opening Endoscopic (ICD-10-PCS; 2023-11-12)
PROC: 3E033XZ Introduction of Vasopressor into Peripheral Vein, Percutaneous Approach (ICD-10-PCS; 2023-11-12)
PROC: 5A1955Z Respiratory Ventilation, Greater than 96 Consecutive Hours (ICD-10-PCS; principal; 2023-11-12 10:05)
PROC: 30233N1 Transfusion of Nonautologous Red Blood Cells into Peripheral Vein, Percutaneous Approach (ICD-10-PCS; 2023-11-14)
PROC: 3E033RZ Introduction of Antiarrhythmic into Peripheral Vein, Percutaneous Approach (ICD-10-PCS; 2023-11-14)
PROC: 3E0436Z Introduction of Nutritional Substance into Central Vein, Percutaneous Approach (ICD-10-PCS; 2023-11-15)
PROC: 0JH63WZ Insertion of Totally Implantable Vascular Access Device into Chest Subcutaneous Tissue and Fascia, Percutaneous Approach (ICD-10-PCS; 2023-11-16)
PROC: 05H533Z Insertion of Infusion Device into Right Subclavian Vein, Percutaneous Approach (ICD-10-PCS; 2023-11-16)
PROC: 0DHA4UZ Insertion of Feeding Device into Jejunum, Percutaneous Endoscopic Approach (ICD-10-PCS; 2023-11-16)
PROC: 3E0H76Z Introduction of Nutritional Substance into Lower GI, Via Natural or Artificial Opening (ICD-10-PCS; 2023-11-16)
PROC: 0DT80ZZ Resection of Small Intestine, Open Approach (ICD-10-PCS; 2023-11-25)
PROC: 0DHA0UZ Insertion of Feeding Device into Jejunum, Open Approach (ICD-10-PCS; 2023-11-25)
PROC: 3E1M38Z Irrigation of Peritoneal Cavity using Irrigating Substance, Percutaneous Approach (ICD-10-PCS; 2023-11-25)
PROC: 03HY32Z Insertion of Monitoring Device into Upper Artery, Percutaneous Approach (ICD-10-PCS; 2023-11-25)
PROC: 4A133B1 Monitoring of Arterial Pressure, Peripheral, Percutaneous Approach (ICD-10-PCS; 2023-11-25)
PROC: 4A133J1 Monitoring of Arterial Pulse, Peripheral, Percutaneous Approach (ICD-10-PCS; 2023-11-25)
PROC: 05H633Z Insertion of Infusion Device into Left Subclavian Vein, Percutaneous Approach (ICD-10-PCS; 2023-11-25)
PROC: 02HV33Z Insertion of Infusion Device into Superior Vena Cava, Percutaneous Approach (ICD-10-PCS; 2023-11-25)
PROC: 06HY33Z Insertion of Infusion Device into Lower Vein, Percutaneous Approach (ICD-10-PCS; 2023-11-29)
PROC: 5A1D70Z Performance of Urinary Filtration, Intermittent, Less than 6 Hours Per Day (ICD-10-PCS; 2023-11-29)
PROC: 03HY32Z Insertion of Monitoring Device into Upper Artery, Percutaneous Approach (ICD-10-PCS; 2023-12-05)
PROC: 4A133B1 Monitoring of Arterial Pressure, Peripheral, Percutaneous Approach (ICD-10-PCS; 2023-12-05)
PROC: 4A133J1 Monitoring of Arterial Pulse, Peripheral, Percutaneous Approach (ICD-10-PCS; 2023-12-05)
PROC: B5191ZZ Fluoroscopy of Inferior Vena Cava using Low Osmolar Contrast (ICD-10-PCS; 2023-12-07)
PROC: 06HY33Z Insertion of Infusion Device into Lower Vein, Percutaneous Approach (ICD-10-PCS; 2023-12-07)
PROC: 0B113F4 Bypass Trachea to Cutaneous with Tracheostomy Device, Percutaneous Approach (ICD-10-PCS; 2023-12-10)
PROC: 3E04317 Introduction of Other Thrombolytic into Central Vein, Percutaneous Approach (ICD-10-PCS; 2023-12-13)
PROC: 03HY32Z Insertion of Monitoring Device into Upper Artery, Percutaneous Approach (ICD-10-PCS; 2023-12-25)
PROC: 4A133B1 Monitoring of Arterial Pressure, Peripheral, Percutaneous Approach (ICD-10-PCS; 2023-12-25)
PROC: 4A133J1 Monitoring of Arterial Pulse, Peripheral, Percutaneous Approach (ICD-10-PCS; 2023-12-25)
PROC: 30233J1 Transfusion of Nonautologous Serum Albumin into Peripheral Vein, Percutaneous Approach (ICD-10-PCS; 2023-12-29)
PROC: XW03396 Introduction of Ceftolozane/Tazobactam Anti-infective into Peripheral Vein, Percutaneous Approach, New Technology Group 6 (ICD-10-PCS; 2023-12-29)
PROC: 0BC18ZZ Extirpation of Matter from Trachea, Via Natural or Artificial Opening Endoscopic (ICD-10-PCS; 2024-01-08)
PROC: 0BC38ZZ Extirpation of Matter from Right Main Bronchus, Via Natural or Artificial Opening Endoscopic (ICD-10-PCS; 2024-01-08)
PROC: 0B21XFZ Change Tracheostomy Device in Trachea, External Approach (ICD-10-PCS; 2024-01-29)
PROC: 0B9H8ZX Drainage of Lung Lingula, Via Natural or Artificial Opening Endoscopic, Diagnostic (ICD-10-PCS; 2024-01-29)
PROC: 0WCQ8ZZ Extirpation of Matter from Respiratory Tract, Via Natural or Artificial Opening Endoscopic (ICD-10-PCS; 2024-02-01)
PROC: 0B21XFZ Change Tracheostomy Device in Trachea, External Approach (ICD-10-PCS; 2024-02-01)
PROC: 03HY32Z Insertion of Monitoring Device into Upper Artery, Percutaneous Approach (ICD-10-PCS; 2024-02-06)
PROC: 4A133B1 Monitoring of Arterial Pressure, Peripheral, Percutaneous Approach (ICD-10-PCS; 2024-02-06)
PROC: 4A133J1 Monitoring of Arterial Pulse, Peripheral, Percutaneous Approach (ICD-10-PCS; 2024-02-06)
DX: J95.88 Other intraoperative complications of respiratory system, not elsewhere classified (principal); L89.153 Pressure ulcer of sacral region, stage 3; R65.21 Severe sepsis with septic shock; J86.0 Pyothorax with fistula; N17.0 Acute kidney failure with tubular necrosis; R57.8 Other shock; J15.1 Pneumonia due to Pseudomonas; J69.0 Pneumonitis due to inhalation of food and vomit; A41.52 Sepsis due to Pseudomonas; K65.0 Generalized (acute) peritonitis; K65.1 Peritoneal abscess; K55.029 Acute infarction of small intestine, extent unspecified; J15.0 Pneumonia due to Klebsiella pneumoniae; G92.8 Other toxic encephalopathy; E43 Unspecified severe protein-calorie malnutrition; K57.21 Diverticulitis of large intestine with perforation and abscess with bleeding; I50.31 Acute diastolic (congestive) heart failure; J80 Acute respiratory distress syndrome; T82.49XA Other complication of vascular dialysis catheter, initial encounter; K94.23 Gastrostomy malfunction; K94.13 Enterostomy malfunction; J95.03 Malfunction of tracheostomy stoma; G62.81 Critical illness polyneuropathy; K55.1 Chronic vascular disorders of intestine; C83.33 Diffuse large B-cell lymphoma, intra-abdominal lymph nodes; D68.8 Other specified coagulation defects; C79.9 Secondary malignant neoplasm of unspecified site; Z99.11 Dependence on respirator [ventilator] status; T81.320A Disruption or dehiscence of gastrointestinal tract anastomosis, repair, or closure, initial encounter; G72.81 Critical illness myopathy; B37.89 Other sites of candidiasis; K31.1 Adult hypertrophic pyloric stenosis; E87.4 Mixed disorder of acid-base balance; J90 Pleural effusion, not elsewhere classified; R18.8 Other ascites; J94.8 Other specified pleural conditions; E87.0 Hyperosmolality and hypernatremia; D62 Acute posthemorrhagic anemia; E87.1 Hypo-osmolality and hyponatremia; Z16.11 Resistance to penicillins; Z16.24 Resistance to multiple antibiotics; Z66 Do not resuscitate; Z51.5 Encounter for palliative care; K66.8 Other specified disorders of peritoneum; L89.152 Pressure ulcer of sacral region, stage 2; D69.6 Thrombocytopenia, unspecified; I48.0 Paroxysmal atrial fibrillation; I11.0 Hypertensive heart disease with heart failure; R62.7 Adult failure to thrive; E88.09 Other disorders of plasma-protein metabolism, not elsewhere classified; G93.89 Other specified disorders of brain; E83.51 Hypocalcemia; B96.1 Klebsiella pneumoniae [K. pneumoniae] as the cause of diseases classified elsewhere; E83.39 Other disorders of phosphorus metabolism; I95.3 Hypotension of hemodialysis; K25.9 Gastric ulcer, unspecified as acute or chronic, without hemorrhage or perforation; D63.0 Anemia in neoplastic disease; K21.9 Gastro-esophageal reflux disease without esophagitis; G89.29 Other chronic pain; Z53.8 Procedure and treatment not carried out for other reasons; K66.0 Peritoneal adhesions (postprocedural) (postinfection); B96.89 Other specified bacterial agents as the cause of diseases classified elsewhere; B95.7 Other staphylococcus as the cause of diseases classified elsewhere; Y95 Nosocomial condition; Y71.1 Therapeutic (nonsurgical) and rehabilitative cardiovascular devices associated with adverse incidents; E16.2 Hypoglycemia, unspecified; E83.42 Hypomagnesemia; K80.20 Calculus of gallbladder without cholecystitis without obstruction; T38.0X5A Adverse effect of glucocorticoids and synthetic analogues, initial encounter; R13.10 Dysphagia, unspecified; E87.5 Hyperkalemia; R54 Age-related physical debility; R74.01 Elevation of levels of liver transaminase levels; I49.1 Atrial premature depolarization; E87.6 Hypokalemia; Z68.29 Body mass index [BMI] 29.0-29.9, adult; K52.89 Other specified noninfective gastroenteritis and colitis; Z79.899 Other long term (current) drug therapy
CPT/HCPCS: 32551; 36558; 36573; 36600; 43239; 70450; 70491; 71045; 71250; 71260; 74018; 74019; 74022; 74150; 74176; 74177; 76770; 76937; 77001; 80048; 80053; 80061; 80200; 80202; 81001; 82040; 82330; 82533; 82565; 82607; 82728; 82746; 82805; 82977; 83540; 83550; 83605; 83690; 83735; 84100; 84132; 84145; 84295; 84478; 84484; 84520; 84550; 85025; 85027; 85045; 85384; 85610; 85730; 86706; 86850; 86900; 86901; 86920; 87040; 87070; 87075; 87077; 87186; 87205; 87324; 87340; 87636; 88305; 88309; 88341; 88342; 90935; 93306; 94002; 94003; 94640; 94667; 94668; 94760; 95819; 95822; 99211; 99213